=== PATIENT | male | born 1965 | race Hispanic/Latino ===

== ENCOUNTER 2022-10-25 13:19 | Inpatient (IN) | payer OTHER ==
--- OUTSIDE RECORDS SUMMARY | 2022-10-25 13:36 | XMS REPORT | Continuity of Care Document ---
:1965 Author Organization [facility] t Address [address] [place] [address] Care Team Providers Name Role Phone LYNDSEY NOVAK Attending Clinician Unavailable LIANA STEPHENS Attending Clinician Unavailable EVELIO NELSON Attending Clinician Unavailable DEANA ONTIVEROS Attending Clinician Unavailable LAB90 Attending Clinician Unavailable Mj Vences Attending Clinician Unavailable Wilbert Ramires Attending Clinician Unavailable Mj Vences Admitting Clinician Unavailable Wilbert Ramires Admitting Clinician Unavailable Payers Payer Name Policy Type Policy Number Effective Date Expiration Date S reina GOTTI MP CVS 9 [id number] 2022 BRONZE: HMO ON 00:00:00 STANDARD Problems This patient has no known problems. Allergies, Adverse Reactions, Alerts Allergy Allergy Status Severity Reaction(s) Onset Inactive Treating Comm ents Source Name Type Date Date Clinician No Known DA Active U 2010-05 [facility] Allergie 0-30 Clear s 00:00: Nevarez 00 [facility] Social History Social Habit Start Date Stop Date Quantity Comments Source Gender identity Nikia dupree - External Sexual orientation Nikia Liang - External History of tobacco Cigarette Smoker Nikia Liang use - External Alcohol intake 2022-10-24 2022-10-24 Ex-drinker Nikia escobar 00:00:00 00:00:00 (finding) - External Tobacco use and 2022-10-16 2022-10-16 Smokeless tobacco Ke lsey Seybold exposure 00:00:00 00:00:00 non-user - External History of Social 2022-10-16 2022-10-16 Nikia Liang function 00:00:00 00:00:00 - External Sex Ass[birth year] At [birth year] Nikia dupree 00:00:00 00:00:00 - External Smoking Status Start Date Stop Date Source Ex-smoker 2022-10-16 00:00:00 2022-10-16 00:00:00 Nikianorma quirosbarbaraleora - External Medications Ordered Filled Start Stop Current Ordering Indication Dosage Frequency Signature Comments Components Source Medication Medication Date Date Medication? Clinician (SIG) Name Name Amoxicillin Yes [id number] 1{tbl} Take 1 Nikia -Pot 5-30 tablet by Seybold Clavulanate 00:00: mouth 2 - 500-125 MG 00 times Externa oral Tablet daily l Amitriptyli Yes [id number] 25mg Take 1 Nikia ne HCl 25 5-26 tablet (25 Seyb old MG oral 00:00: mg total) - Tablet 00 by mouth Externa at bedtime l Sodium Yes [id number] 650mg Take 1 Ashish sey Bicarbonate 5-26 tablet Seybol d 650 MG oral 00:00: (650 mg - Tablet 00 total) by Externa mouth 2 l times daily Gabapentin Yes [id number] 100mg Take 1 Nikia 100 MG oral 5-26 capsule Seybo ld Capsule 00:00: (100 mg - 00 total) by Externa mouth l every 8 hours Clonidine Yes [id number] .1mg Take 1 Trell lsey HCl 5-26 tablet Seybold (CATAPRES) 00:00: (0.1 mg - 0.1 MG oral 00 total) by Ext jordyn Tablet mouth 2 l times daily hydrALAZINE Yes [id number] 100mg Take 1 Nikia HCl 100 MG 5-26 tablet Seybold oral Tablet 00:00: (100 mg - 00 total) by Externa mouth 3 l times daily Furosemide Yes [id number] 20mg Take 1 K elsey (LASIX) 20 5-26 tablet (20 Sey bold MG oral 00:00: mg total) - Tablet 00 by mouth Externa daily l Amitriptyli 2022-0 Yes [id number] 25mg Take 1 Nikia ne HCl 25 5-26 tablet (25 Seyb old MG oral 00:00: mg total) - Tablet 00 by mouth Externa at bedtime l Sodium 2022-0 Yes [id number] 650mg Take 1 Ashish sey Bicarbonate 5-26 tablet Seybol d 650 MG oral 00:00: (650 mg - Tablet 00 total) by Externa mouth 2 l times daily Gabapentin 2022-0 Yes [id number] 100mg Take 1 Nikia 100 MG oral 5-26 capsule Seybo ld Capsule 00:00: (100 mg - 00 total) by Externa mouth l every 8 hours Clonidine 2022-0 Yes [id number] .1mg Take 1 Ke lsey HCl 5-26 tablet Seybold (CATAPRES) 00:00: (0.1 mg - 0.1 MG oral 00 total) by Ext jordyn Tablet mouth 2 l times daily hydrALAZINE 2022-0 Yes [id number] 100mg Take 1 Nikia HCl 100 MG 5-26 tablet Seybold oral Tablet 00:00: (100 mg - 00 total) by Externa mouth 3 l times daily Furosemide 2022-0 Yes [id number] 20mg Take 1 K elsey (LASIX) 20 5-26 tablet (20 Sey bold MG oral 00:00: mg total) - Tablet 00 by mouth Externa daily l Labetalol 2022-0 Yes Nikia HCl 200 MG 5-24 Seybold oral Tablet 00:00: - 00 Externa l Labetalol 2022-0 Yes Nikia HCl 200 MG 5-24 Seybold oral Tablet 00:00: - 00 Externa l Gabapentin 2022-0 2023- No 100mg Take 1 Ashish sey 100 MG oral 5-17 05-26 capsule Seyb old Capsule 00:00: 00:00 (100 mg - 00 :00 total) by Externa mouth l every 8 hours hydrALAZINE 2022-0 2022- No 100mg Take 1 Ke lsey HCl 100 MG 5-06 05-26 tablet Seybol d oral Tablet 00:00: 00:00 (100 mg - 00 :00 total) by Externa mouth l daily Insulin 2022-0 Yes INJECT 10 Kelse y Lispro, 1 5-04 UNITS Seybold Unit Dial, 00:00: SUBCUTANEO - 100 UNIT/ML 00 USLY WITH Ext jordyn subcutaneou EACH MEAL l s Solution Pen-injecto DIRECTED r Insulin Yes INJECT 10 Kelse y Lispro, 1 5-04 UNITS Seybold Unit Dial, 00:00: SUBCUTANEO - 100 UNIT/ML 00 USLY WITH Ext jordyn subcutaneou EACH MEAL l s Solution Pen-injecto DIRECTED r predniSONE Yes 10mg Take 1 Kelse y (DELTASONE) 5-03 tablet (10 Se ybold 10 MG oral 00:00: mg total) - tablet 00 by mouth Externa See Admin l Instructio ns PLEASE SEE ATTACHED FOR DETAILED DIRECTIONS predniSONE Yes 10mg Take 1 Kelse y (DELTASONE) 5-03 tablet (10 Se ybold 10 MG oral 00:00: mg total) - tablet 00 by mouth Externa See Admin l Instructio ns PLEASE SEE ATTACHED FOR DETAILED DIRECTIONS Clonidine 0 2022- No .1mg Take 1 Kelse y HCl 09-24-26 tablet Seybold (CATAPRES) 00:00: 00:00 (0.1 mg - 0.1 MG oral 00 :00 total) by Ext jordyn Tablet mouth 2 l times daily Furosemide 2022- No 20mg Take 1 Genesis ey (LASIX) 20 - 05-26 tablet (20 Se ybold MG oral 00:00: 00:00 mg total) - Tablet 00 :00 by mouth Externa daily l Amitriptyli 0 2022- No 25mg Take 1 Ashish sey ne HCl 25 09-23 05-26 tablet (25 Sey bold MG oral 00:00: 00:00 mg total) - Tablet 00 :00 by mouth Externa at bedtime l Sodium 2022- No 650mg Take 1 Nikia Bicarbonate - 05-26 tablet Seybo ld 650 MG oral 00:00: 00:00 (650 mg - Tablet 00 :00 total) by Externa mouth 2 l times daily oxyCODONE-A Yes TAKE 1 Genesis ey cetaminophe 4-27 TABLET BY Sey bold n 10-325 MG 00:00: MOUTH - oral Tablet 00 EVERY SIX Ext jordyn HOURS l NEEDED FOR PAIN (MAX 4/DAY) oxyCODONE-A Yes TAKE 1 Genesis quiros cetaminophe 4-27 TABLET BY Norma escobar n 10-325 MG 00:00: MOUTH - oral Tablet 00 EVERY SIX Ext jordyn HOURS l NEEDED FOR PAIN (MAX 4/DAY) Vital Signs Vital Name Observation Time Observation Value Comments Source Systolic blood 2022-10-24 163 mm[Hg] Nikia Changol d pressure 21:33:00 - External Diastolic blood 2022-10-24 76 mm[Hg] Nikia Woodybo ld pressure 21:33:00 - External Heart rate 2022-10-24 86 /min Nikia Woodybold :33:00 - External Body temperature 2022-10-24 36.89 Josey Nikia Chang old :33:00 - External Respiratory rate 2022-10-24 19 /min Nikia Chang old :33:00 - External Body height 2022-10-24 167.6 cm Nikia Woodybmiguel :33:00 - External Body weight 2022-10-24 72.576 kg Nikia Woodybmiguel 21:33:00 - External BMI 2022-10-24 25.82 [facility] - External Oxygen saturation 2022-10-24 99 /min Nikia escobar in Arterial blood 21:33:00 - External by Pulse oximetry Systolic blood 2022-10-17 135 mm[Hg] Nikianorma Changol d pressure 13:01:00 - External Diastolic blood 2022-10-17 89 mm[Hg] Nikia Chango ld pressure 13:01:00 - External Heart rate 2022-10-17 87 /min Nikia Woodybmiguel 13:01:00 - External Body temperature 2022-10-17 36.61 Josey Nikia Chang old 13:01:00 - External Respiratory rate 2022-10-17 16 /min Nikia Wood old 13:01:00 - External Body height 2022-10-17 167.6 cm pt is in a Nikia Woodybmiguel 13:01:00 wheel chair - External Body weight 2022-10-17 72.576 kg Nikia Woodybmiguel 13:01:00 - External BMI 2022-10-17 25.82 kg/m2 Nikia Liang 13:01:00 - External Oxygen saturation 2022-10-17 97 /min Nikia escobar in Arterial blood 13:01:00 - External by Pulse oximetry Procedures Procedure Date / Time Performed Performing Clinician [facility] e REFERRAL TO GENERAL 2022-10-17 14:40:00 Deana Ontiveros anayajyotsna Liang - SURGERY[facility] External [id number] 2022-09-08 00:00:00 KARZE [facility] [id number] 2022-09-08 00:00:00 KARZE [facility] [id number] 2022-09-03 00:00:00 GIBJE.01 [facility] [id number] 2022-09-03 00:00:00 GIBJE.01 [facility] [id number] 2022-09-03 00:00:00 GIBJE.01 [facility] [id number] 2022-09-03 00:00:00 GIBJE.01 [facility] [id number] 2022-09-03 00:00:00 GIBJE.01 [facility] [id number] 2022-08-28 00:00:00 JUAJE [facility] [id number] 2022-08-26 00:00:00 HACJE [facility] [id number] 2022-08-25 00:00:00 ALBPA [facility] [id number] 2022-08-19 00:00:00 REYSE [facility] Encounters Start End Encounter Admission Attending Care Care Encounter Source Date/Time Date/Time Type Type Clinicians Facility Department ID 2023-02-23 2023-02-23 Outpatient LYNDSEY NOVAK [id number] Nikia 10:15:00 10:15:00 Seybol d 2023-01-23 2023-01-23 Outpatient NIKIA STEPHENS [id number] Nikia 09:20:00 09:20:00 LIANA corey 2022-11-20 2022-11-20 Outpatient EVELIO NELSONSEY [id number] Nikia 14:10:00 14:10:00 Seybol d 2022-10-24 2022-10-24 Outpatient NIKIA ONTIVEROS [id number] Nikia 16:30:00 16:30:00 DEANA Seybol d 2022-10-21 2022-10-21 Outpatient NIKIA ONTIVEROS [id number] Nikia 00:00:00 00:00:00 DEANA Seybol d 2022-10-21 2022-10-21 Outpatient NIKIA ONTIVEROS [id number] Nikia 00:00:00 00:00:00 DEANA Seybol d 2022-10-17 2022-10-17 Outpatient LAB90 NIKIA HARRINGTON [id number] Nikia 09:20:00 09:20:00 Seybol d 2022-10-17 2022-10-17 Outpatient NIKIA ONTIVEROS [id number] Nikia 08:00:00 08:00:00 DEANA Seybol d 2022-10-17 2022-10-17 Outpatient NIKIA ONTIVEROS [id number] Nikia 00:00:00 00:00:00 DEANA Seybol d 2022-09-02 2022-09-24 Inpatient FAY Vences [facility] [id number] [facility] 17:20:00 18:29:[address] 2022-08-18 2022-09-02 Inpatient DEVIN Ramires [facility].02 [id number] [facility] 05:13:00 16:55:00 [facility] Results Test Description Test Time Test Comments Results Result Comments Source GLUCOSE BEDSIDE 2022-09-24 16:44:00 Test Item Value Reference Range Interpretation Comme nts GLUCOSE BEDSIDE (test code = 167 MG/DL 70-110 H Performed by certified dredge operator at [facility]) [facility] GLUCOSE [id number] 11:20:00 Test Item Value Reference Range Interpretation Comments GLUCOSE BEDSIDE (test 100 MG/DL 70-110 N Perfor med by certified code = GLUBED) dredge operator at [facility] CBC W/AUTO [id number] 07:55:00 Test Item Value Reference Range Interpretation Comments WHITE BLOOD CELL (test code = 13.1 x10 3/uL 4.5-11.0 H WBC) RED BLOOD CELL (test code = 2.67 x10 6/uL 4.00-5.60 L RBC) HEMOGLOBIN (test code = HGB) 7.6 g/dL 12.5-16.9 L HEMATOCRIT (test code = HCT) 25.0 % 37.5-50.7 L MEAN CELL VOLUME (test code = 93.6 fL 81.0-99.0 N MCV) MEAN CELL HGB (test code = MCH) 28.5 pg 27.0-33.0 N MEAN CELL HGB CONCETRATION 30.4 g/dL 33.0-37.0 L (test code = MCHC) RED CELL DISTRIBUTION WIDTH CV 16.4 % 11.5-14.5 H (test code = RDW) RED CELL DISTRIBUTION WIDTH SD 55.4 fL 37.0-54.0 H (test code = RDW-SD) PLATELET COUNT (test code = 285 x10 3/uL 150-400 N PLT) MEAN PLATELET VOLUME (test code 9.6 fL 7.0-9.0 H = MPV) NEUTROPHIL % (test code = NT%) 73.5 % 56.0-77.0 N IMMATURE GRANULOCYTE % (test 1.1 % 0.0-2.0 N code = IG%) LYMPHOCYTE % (test code = LY%) 14.8 % 14.0-32.0 N MONOCYTE % (test code = MO%) 7.6 % 4.8-9.0 N EOSINOPHIL % (test code = EO%) 3.0 % 0.3-3.7 N BASOPHIL % (test code = BA%) 0.0 % 0.0-2.0 N NUCLEATED RBC % (test code = 0.0 % 0-0 N NRBC%) NEUTROPHIL # (test code = NT#) 9.62 x10 3/uL 2.0-7.6 H IMMATURE GRANULOCYTE # (test 0.14 x10 3/uL 0.00-0.03 H code = IG#) LYMPHOCYTE # (test code = LY#) 1.93 x10 3/uL 1.0-3.8 N MONOCYTE # (test code = MO#) 0.99 x10 3/uL 0.1-0.8 H EOSINOPHIL # (test code = EO#) 0.39 x10 3/uL 0.0-0.2 H BASOPHIL # (test code = BA#) 0.00 x10 3/uL 0.0-0.2 N NUCLEATED RBC # (test code = 0.00 x10 3/uL 0.0-0.1 N NRBC#) MANUAL DIFF REQUIRED (test code NO = MDIFF) BASIC METABOLIC [id number] 07:33:00 Test Item Value Reference Range Interpretation Comments SODIUM (test code = 144 mEq/L 134-147 N NA) POTASSIUM (test code 5.0 mEq/L 3.4-5.0 N = K) CHLORIDE (test code 115 mEq/L 100-108 H = CL) CARBON DIOXIDE (test 19 mEq/l 21-33 L code = CO2) ANION GAP (test code 15 0-20 N = GAP) GLUCOSE (test code = 183 mg/dL 70-110 H GLU) BLOOD UREA NITROGEN 60 mg/dL 7-18 H (test code = BUN) GLOMERULAR 46.2 90-95 L The Glomerular FILTRATION RATE Filtration R ate is a (test code = GFR) calculated parameterbased on serum Creatinine, pat ient age and sex. GFR va luesless than 60 mL/min/ 1.73 square meters a re indicative ofCh ronic Kidney Disease. Values less than 15 mL/min/1.73squa re meters indicate Kidney failure. The calculation forGFR is based on the CKD-EPI (2020) calculat ion. This formulais race indifferent and is the recommended for rodrigo for GFRby the [facility] Kidney Foundati on for Adults.The GFR will not calculate if th e sex is unknown or if thepatient's ag e is <18 years. CREATININE (test 1.7 mg/dL 0.6-1.3 H code = CREAT) CALCIUM (test code = 7.8 mg/dL 8.0-10.5 L CA) [id number] 07:33:00 Test Item Value Reference Range Interpretation Comments PHOSPHOROUS (test code = PHOS) 5.4 MG/DL 2.5-4.9 H [id number] 07:33:00 Test Item Value Reference Range Interpretation Comments MAGNESIUM (test code = MAG) 2.18 mg/dL 1.80-2.40 N GLUCOSE [id number] 06:08:00 Test Item Value Reference Range Interpretation Comments GLUCOSE BEDSIDE (test 176 MG/DL 70-110 H Perfor med by certified code = GLUBED) dredge operator at [facility] GLUCOSE [id number] 19:52:00 Test Item Value Reference Range Interpretation Comments GLUCOSE BEDSIDE (test 194 MG/DL 70-110 H Perfor med by certified code = GLUBED) dredge operator at [facility] GLUCOSE [id number] 15:58:00 Test Item Value Reference Range Interpretation Comments GLUCOSE BEDSIDE (test 146 MG/DL 70-110 H Perfor med by certified code = GLUBED) dredge operator at [facility] GLUCOSE [id number] 11:33:00 Test Item Value Reference Range Interpretation Comments GLUCOSE BEDSIDE (test 231 MG/DL 70-110 H Perfor med by certified code = GLUBED) dredge operator at [facility] BASIC METABOLIC [id number] 08:11:00 Test Item Value Reference Range Interpretation Comments SODIUM (test code = 138 mEq/L 134-147 N NA) POTASSIUM (test code 5.6 mEq/L 3.4-5.0 H = K) CHLORIDE (test code 112 mEq/L 100-108 H = CL) CARBON DIOXIDE (test 19 mEq/l 21-33 L code = CO2) ANION GAP (test code 13 0-20 N = GAP) GLUCOSE (test code = 217 mg/dL 70-110 H GLU) BLOOD UREA NITROGEN 70 mg/dL 7-18 H (test code = BUN) GLOMERULAR 35.8 90-95 L The Glomerular FILTRATION RATE Filtration R ate is a (test code = GFR) calculated parameterbased on serum Creatinine, pat ient age and sex. GFR va luesless than 60 mL/min/ 1.73 square meters a re indicative ofCh ronic Kidney Disease. Values less than 15 mL/min/1.73squa re meters indicate Kidney failure. The calculatio n forGFR is based on the CKD-EPI (2020) calculat ion. This formulais race indifferent and is the recommended for rodrigo for GFRby the [facility] on for Adults.The GFR will not calculate if th e sex is unknown or if thepatient's ag e is <18 years. CREATININE (test 2.1 mg/dL 0.6-1.3 H code = CREAT) CALCIUM (test code = 7.8 mg/dL 8.0-10.5 L CA) [id number] 08:11:00 Test Item Value Reference Range Interpretation Comments PHOSPHOROUS (test code = PHOS) 5.2 MG/DL 2.5-4.9 H [id number] 08:11:00 Test Item Value Reference Range Interpretation Comments MAGNESIUM (test code = MAG) 2.22 mg/dL 1.80-2.40 N CBC W/AUTO [id number] 07:10:00 Test Item Value Reference Range Interpretation Comments WHITE BLOOD CELL (test code = 11.8 x10 3/uL 4.5-11.0 H WBC) RED BLOOD CELL (test code = 2.74 x10 6/uL 4.00-5.60 L RBC) HEMOGLOBIN (test code = HGB) 7.8 g/dL 12.5-16.9 L HEMATOCRIT (test code = HCT) 25.4 % 37.5-50.7 L MEAN CELL VOLUME (test code = 92.7 fL 81.0-99.0 N MCV) MEAN CELL HGB (test code = 28.5 pg 27.0-33.0 N MCH) MEAN CELL HGB CONCETRATION 30.7 g/dL 33.0-37.0 L (test code = MCHC) RED CELL DISTRIBUTION WIDTH CV 16.1 % 11.5-14.5 H (test code = RDW) RED CELL DISTRIBUTION WIDTH SD 54.4 fL 37.0-54.0 H (test code = RDW-SD) PLATELET COUNT (test code = 300 x10 3/uL 150-400 N PLT) MEAN PLATELET VOLUME (test 9.4 fL 7.0-9.0 H code = MPV) NEUTROPHIL % (test code = NT%) 84.8 % 56.0-77.0 H IMMATURE GRANULOCYTE % (test 0.9 % 0.0-2.0 N code = IG%) LYMPHOCYTE % (test code = LY%) 9.6 % 14.0-32.0 L MONOCYTE % (test code = MO%) 4.5 % 4.8-9.0 L EOSINOPHIL % (test code = EO%) 0.1 % 0.3-3.7 L BASOPHIL % (test code = BA%) 0.1 % 0.0-2.0 N NUCLEATED RBC % (test code = 0.0 % 0-0 N NRBC%) NEUTROPHIL # (test code = NT#) 10.02 x10 3/uL 2.0-7.6 H IMMATURE GRANULOCYTE # (test 0.11 x10 3/uL 0.00-0.03 H code = IG#) LYMPHOCYTE # (test code = LY#) 1.13 x10 3/uL 1.0-3.8 N MONOCYTE # (test code = MO#) 0.53 x10 3/uL 0.1-0.8 N EOSINOPHIL # (test code = EO#) 0.01 x10 3/uL 0.0-0.2 N BASOPHIL # (test code = BA#) 0.01 x10 3/uL 0.0-0.2 N NUCLEATED RBC # (test code = 0.00 x10 3/uL 0.0-0.1 N NRBC#) MANUAL DIFF REQUIRED (test NO code = MDIFF) GLUCOSE [id number] 06:01:00 Test Item Value Reference Range Interpretation Comments GLUCOSE BEDSIDE (test 226 MG/DL 70-110 H Perfor med by certified code = GLUBED) dredge operator at [facility] GLUCOSE [id number] 03:42:00 Test Item Value Reference Range Interpretation Comments GLUCOSE BEDSIDE (test 190 MG/DL 70-110 H Perfor med by certified code = GLUBED) dredge operator at [facility] GLUCOSE [id number] 18:59:00 Test Item Value Reference Range Interpretation Comments GLUCOSE BEDSIDE (test 156 MG/DL 70-110 H Perfor med by certified code = GLUBED) dredge operator at [facility] GLUCOSE [id number] 16:16:00 Test Item Value Reference Range Interpretation Comments GLUCOSE BEDSIDE (test 118 MG/DL 70-110 H Perfor med by certified code = GLUBED) dredge operator at [facility] GLUCOSE [id number] 11:22:00 Test Item Value Reference Range Interpretation Comments GLUCOSE BEDSIDE (test 170 MG/DL 70-110 H Perfor med by certified code = GLUBED) dredge operator at [facility] B-TYPE NATRIURETIC [id number] 07:36:00 Test Item Value Reference Range Interpretation Comments B-TYPE NATRIURETIC PEPTIDE (test 251.0 PG/ML 0-100 H code = BNP) CBC W/AUTO [id number] 07:01:00 Test Item Value Reference Range Interpretation Comments WHITE BLOOD CELL (test code = 12.0 x10 3/uL 4.5-11.0 H WBC) RED BLOOD CELL (test code = 2.65 x10 6/uL 4.00-5.60 L RBC) HEMOGLOBIN (test code = HGB) 7.7 g/dL 12.5-16.9 L HEMATOCRIT (test code = HCT) 24.2 % 37.5-50.7 L MEAN CELL VOLUME (test code = 91.3 fL 81.0-99.0 N MCV) MEAN CELL HGB (test code = MCH) 29.1 pg 27.0-33.0 N MEAN CELL HGB CONCETRATION 31.8 g/dL 33.0-37.0 L (test code = MCHC) RED CELL DISTRIBUTION WIDTH CV 16.0 % 11.5-14.5 H (test code = RDW) RED CELL DISTRIBUTION WIDTH SD 52.8 fL 37.0-54.0 N (test code = RDW-SD) PLATELET COUNT (test code = 305 x10 3/uL 150-400 N PLT) MEAN PLATELET VOLUME (test code 9.5 fL 7.0-9.0 H = MPV) NEUTROPHIL % (test code = NT%) 81.7 % 56.0-77.0 H IMMATURE GRANULOCYTE % (test 1.1 % 0.0-2.0 N code = IG%) LYMPHOCYTE % (test code = LY%) 11.3 % 14.0-32.0 L MONOCYTE % (test code = MO%) 5.7 % 4.8-9.0 N EOSINOPHIL % (test code = EO%) 0.2 % 0.3-3.7 L BASOPHIL % (test code = BA%) 0.0 % 0.0-2.0 N NUCLEATED RBC % (test code = 0.0 % 0-0 N NRBC%) NEUTROPHIL # (test code = NT#) 9.79 x10 3/uL 2.0-7.6 H IMMATURE GRANULOCYTE # (test 0.13 x10 3/uL 0.00-0.03 H code = IG#) LYMPHOCYTE # (test code = LY#) 1.35 x10 3/uL 1.0-3.8 N MONOCYTE # (test code = MO#) 0.68 x10 3/uL 0.1-0.8 N EOSINOPHIL # (test code = EO#) 0.02 x10 3/uL 0.0-0.2 N BASOPHIL # (test code = BA#) 0.00 x10 3/uL 0.0-0.2 N NUCLEATED RBC # (test code = 0.00 x10 3/uL 0.0-0.1 N NRBC#) MANUAL DIFF REQUIRED (test code NO = MDIFF) GLUCOSE [id number] 06:33:00 Test Item Value Reference Range Interpretation Comments GLUCOSE BEDSIDE (test 251 MG/DL 70-110 H Perfor med by certified code = GLUBED) dredge operator at [facility] BASIC METABOLIC [id number] 05:27:00 Test Item Value Reference Range Interpretation Comments SODIUM (test code = 138 mEq/L 134-147 N NA) POTASSIUM (test code 5.1 mEq/L 3.4-5.0 H = K) CHLORIDE (test code 111 mEq/L 100-108 H = CL) CARBON DIOXIDE (test 20 mEq/l 21-33 L code = CO2) ANION GAP (test code 12 0-20 N = GAP) GLUCOSE (test code = 244 mg/dL 70-110 H GLU) BLOOD UREA NITROGEN 71 mg/dL 7-18 H (test code = BUN) GLOMERULAR 43.1 90-95 L The Glomerular FILTRATION RATE Filtration R ate is a (test code = GFR) calculated parameterbased on serum Creatinine, pat ient age and sex. GFR va luesless than 60 mL/min/ 1.73 square meters a re indicative ofCh ronic Kidney Disease. Values less than 15 mL/min/1.73squa re meters indicate Kidney failure. The calculation forGFR is based on the CKD-EPI (2020) calculat ion. This formulais race indifferent and is the recommended for rodrigo for GFRby the [facility] on for Adults.The GFR will not calculate if th e sex is unknown or if thepatient's ag e is <18 years. CREATININE (test 1.8 mg/dL 0.6-1.3 H code = CREAT) CALCIUM (test code = 7.3 mg/dL 8.0-10.5 L CA) [id number] 05:27:00 Test Item Value Reference Range Interpretation Comments ALBUMIN (test code = ALB) 1.80 g/dL 3.4-5.0 L [id number] 05:27:00 Test Item Value Reference Range Interpretation Comments PHOSPHOROUS (test code = PHOS) 5.0 MG/DL 2.5-4.9 H CREATINE KINASE (CK)2022-09-22 05:27:00 Test Item Value Reference Range Interpretation Comments CREATINE KINASE (CK) (test code = 27 Units/L 46-171 L CK) [id number] 05:27:00 Test Item Value Reference Range Interpretation Comments MAGNESIUM (test code = MAG) 2.13 mg/dL 1.80-2.40 N [id number] 05:27:00 Test Item Value Reference Range Interpretation Comments PREALBUMIN (test code = PREALB) 16.7 mg/dL 16.0-40.0 N GLUCOSE [id number] 21:01:00 Test Item Value Reference Range Interpretation Comments GLUCOSE BEDSIDE (test 251 MG/DL 70-110 H Perfor med by certified code = GLUBED) 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 operator at [facility] GLUCOSE [id number] 16:07:00 Test Item Value Reference Range Interpretation Comments GLUCOSE BEDSIDE (test 170 MG/DL 70-110 H Perfor med by certified code = GLUBED) dredge operator at [facility] GLUCOSE [id number] 14:50:00 Test Item Value Reference Range Interpretation Comments GLUCOSE BEDSIDE (test 167 MG/DL 70-110 H Perfor med by certified code = GLUBED) dredge operator at [facility] GLUCOSE [id number] 12:12:00 Test Item Value Reference Range Interpretation Comments GLUCOSE BEDSIDE (test 162 MG/DL 70-110 H Perfor med by certified code = GLUBED) dredge operator at [facility] BASIC METABOLIC [id number] 08:19:00 Test Item Value Reference Range Interpretation Comments SODIUM (test code = 137 mEq/L 134-147 N NA) POTASSIUM (test code 4.6 mEq/L 3.4-5.0 N = K) CHLORIDE (test code 107 mEq/L 100-108 N = CL) CARBON DIOXIDE (test 22 mEq/l 21-33 N code = CO2) ANION GAP (test code 13 0-20 N = GAP) GLUCOSE (test code = 148 mg/dL 70-110 H GLU) BLOOD UREA NITROGEN 75 mg/dL 7-18 H (test code = BUN) GLOMERULAR 40.4 90-95 L The Glomerular FILTRATION RATE Filtration R ate is a (test code = GFR) calculated parameterbased on serum Creatinine, pat ient age and sex. GFR va luesless than 60 mL/min/ 1.73 square meters a re indicative ofCh ronic Kidney Disease. Values less than 15 mL/min/1.73squa re meters indicate Kidney failure. The calculation forGFR is based on the CKD-EPI (2020) calculat ion. This formulais race indifferent and is the recommended for rodrigo for GFRby the Nat n[facility] Kidney Foundati on for Adults.The GFR will not calculate if th e sex is unknown or if thepatient's ag e is <18 years. CREATININE (test 1.9 mg/dL 0.6-1.3 H code = CREAT) CALCIUM (test code = 7.5 mg/dL 8.0-10.5 L CA) [id number] 08:19:00 Test Item Value Reference Range Interpretation Comments PHOSPHOROUS (test code = PHOS) 5.0 MG/DL 2.5-4.9 H [id number] 08:19:00 Test Item Value Reference Range Interpretation Comments MAGNESIUM (test code = MAG) 2.06 mg/dL 1.80-2.40 N CBC W/AUTO [id number] 07:24:00 Test Item Value Reference Range Interpretation Comments WHITE BLOOD CELL (test code = 13.0 x10 3/uL 4.5-11.0 H WBC) RED BLOOD CELL (test code = 2.69 x10 6/uL 4.00-5.60 L RBC) HEMOGLOBIN (test code = HGB) 7.6 g/dL 12.5-16.9 L HEMATOCRIT (test code = HCT) 23.9 % 37.5-50.7 L MEAN CELL VOLUME (test code = 88.8 fL 81.0-99.0 N MCV) MEAN CELL HGB (test code = 28.3 pg 27.0-33.0 N MCH) MEAN CELL HGB CONCETRATION 31.8 g/dL 33.0-37.0 L (test code = MCHC) RED CELL DISTRIBUTION WIDTH CV 15.7 % 11.5-14.5 H (test code = RDW) RED CELL DISTRIBUTION WIDTH SD 49.5 fL 37.0-54.0 N (test code = RDW-SD) PLATELET COUNT (test code = 296 x10 3/uL 150-400 N PLT) MEAN PLATELET VOLUME (test 9.8 fL 7.0-9.0 H code = MPV) NEUTROPHIL % (test code = NT%) 82.2 % 56.0-77.0 H IMMATURE GRANULOCYTE % (test 0.9 % 0.0-2.0 N code = IG%) LYMPHOCYTE % (test code = LY%) 11.3 % 14.0-32.0 L MONOCYTE % (test code = MO%) 5.3 % 4.8-9.0 N EOSINOPHIL % (test code = EO%) 0.2 % 0.3-3.7 L BASOPHIL % (test code = BA%) 0.1 % 0.0-2.0 N NUCLEATED RBC % (test code = 0.0 % 0-0 N NRBC%) NEUTROPHIL # (test code = NT#) 10.70 x10 3/uL 2.0-7.6 H IMMATURE GRANULOCYTE # (test 0.12 x10 3/uL 0.00-0.03 H code = IG#) LYMPHOCYTE # (test code = LY#) 1.47 x10 3/uL 1.0-3.8 N MONOCYTE # (test code = MO#) 0.69 x10 3/uL 0.1-0.8 N EOSINOPHIL # (test code = EO#) 0.03 x10 3/uL 0.0-0.2 N BASOPHIL # (test code = BA#) 0.01 x10 3/uL 0.0-0.2 N NUCLEATED RBC # (test code = 0.00 x10 3/uL 0.0-0.1 N NRBC#) MANUAL DIFF REQUIRED (test NO code = MDIFF) GLUCOSE [id number] 05:59:00 Test Item Value Reference Range Interpretation Comments GLUCOSE BEDSIDE (test 155 MG/DL 70-110 H Perfor med by certified code = GLUBED) dredge operator at [facility] GLUCOSE [id number] 20:10:00 Test Item Value Reference Range Interpretation Comments GLUCOSE BEDSIDE (test 239 MG/DL 70-110 H Perfor med by certified code = GLUBED) dredge operator at [facility] GLUCOSE [id number] 16:14:00 Test Item Value Reference Range Interpretation Comments GLUCOSE BEDSIDE (test 159 MG/DL 70-110 H Perfor med by certified code = GLUBED) dredge operator at [facility] GLUCOSE [id number] 11:52:00 Test Item Value Reference Range Interpretation Comments GLUCOSE BEDSIDE (test 155 MG/DL 70-110 H Perfor med by certified code = GLUBED) dredge operator at [facility] GLUCOSE [id number] 09:34:00 Test Item Value Reference Range Interpretation Comments GLUCOSE BEDSIDE (test 299 MG/DL 70-110 H Perfor med by certified code = GLUBED) dredge operator at [facility] BASIC METABOLIC [id number] 08:04:00 Test Item Value Reference Range Interpretation Comments SODIUM (test code = 136 mEq/L 134-147 N NA) POTASSIUM (test code 4.2 mEq/L 3.4-5.0 N = K) CHLORIDE (test code 107 mEq/L 100-108 N = CL) CARBON DIOXIDE (test 21 mEq/l 21-33 N code = CO2) ANION GAP (test code 12 0-20 N = GAP) GLUCOSE (test code = 301 mg/dL 70-110 H GLU) BLOOD UREA NITROGEN 76 mg/dL 7-18 H (test code = BUN) GLOMERULAR 33.9 90-95 L The Glomerular FILTRATION RATE Filtration R ate is a (test code = GFR) calculated parameterbased on serum Creatinine, pat ient age and sex. GFR va luesless than 60 mL/min/ 1.73 square meters a re indicative ofCh ronic Kidney Disease. Values less than 15 mL/min/1.73squa re meters indicate Kidney failure. The calculation forGFR is based on the CKD-EPI (2020) calculat ion. This formulais race indifferent and is the recommended for rodrigo for GFRby the [facility] on for Adults.The GFR will not calculate if th e sex is unknown or if thepatient's ag e is <18 years. CREATININE (test 2.2 mg/dL 0.6-1.3 H code = CREAT) CALCIUM (test code = 7.4 mg/dL 8.0-10.5 L CA) [id number] 08:04:00 Test Item Value Reference Range Interpretation Comments PHOSPHOROUS (test code = PHOS) 5.4 MG/DL 2.5-4.9 H [id number] 08:04:00 Test Item Value Reference Range Interpretation Comments MAGNESIUM (test code = MAG) 2.05 mg/dL 1.80-2.40 CBC W/AUTO [id number] 07:53:00 Test Item Value Reference Range Interpretation Comments WHITE BLOOD CELL (test code = 12.3 x10 3/uL 4.5-11.0 H WBC) RED BLOOD CELL (test code = 2.66 x10 6/uL 4.00-5.60 L RBC) HEMOGLOBIN (test code = HGB) 7.6 g/dL 12.5-16.9 L HEMATOCRIT (test code = HCT) 23.9 % 37.5-50.7 L MEAN CELL VOLUME (test code = 89.8 fL 81.0-99.0 N MCV) MEAN CELL HGB (test code = MCH) 28.6 pg 27.0-33.0 N MEAN CELL HGB CONCETRATION 31.8 g/dL 33.0-37.0 L (test code = MCHC) RED CELL DISTRIBUTION WIDTH CV 15.3 % 11.5-14.5 H (test code = RDW) RED CELL DISTRIBUTION WIDTH SD 49.0 fL 37.0-54.0 N (test code = RDW-SD) PLATELET COUNT (test code = 302 x10 3/uL 150-400 N PLT) MEAN PLATELET VOLUME (test code 9.2 fL 7.0-9.0 H = MPV) NEUTROPHIL % (test code = NT%) 79.7 % 56.0-77.0 H IMMATURE GRANULOCYTE % (test 0.8 % 0.0-2.0 N code = IG%) LYMPHOCYTE % (test code = LY%) 13.0 % 14.0-32.0 L MONOCYTE % (test code = MO%) 6.2 % 4.8-9.0 N EOSINOPHIL % (test code = EO%) 0.2 % 0.3-3.7 L BASOPHIL % (test code = BA%) 0.1 % 0.0-2.0 N NUCLEATED RBC % (test code = 0.0 % 0-0 N NRBC%) NEUTROPHIL # (test code = NT#) 9.84 x10 3/uL 2.0-7.6 H IMMATURE GRANULOCYTE # (test 0.10 x10 3/uL 0.00-0.03 H code = IG#) LYMPHOCYTE # (test code = LY#) 1.60 x10 3/uL 1.0-3.8 N MONOCYTE # (test code = MO#) 0.76 x10 3/uL 0.1-0.8 N EOSINOPHIL # (test code = EO#) 0.03 x10 3/uL 0.0-0.2 N BASOPHIL # (test code = BA#) 0.01 x10 3/uL 0.0-0.2 N NUCLEATED RBC # (test code = 0.00 x10 3/uL 0.0-0.1 N NRBC#) MANUAL DIFF REQUIRED (test code NO = MDIFF) GLUCOSE [id number] 05:15:00 Test Item Value Reference Range Interpretation Comments GLUCOSE BEDSIDE (test 277 MG/DL 70-110 H Perfor med by certified code = GLUBED) dredge operator at [facility] GLUCOSE [id number] 20:06:00 Test Item Value Reference Range Interpretation Comments GLUCOSE BEDSIDE (test 236 MG/DL 70-110 H Perfor med by certified code = GLUBED) dredge operator at [facility] GLUCOSE [id number] 16:11:00 Test Item Value Reference Range Interpretation Comments GLUCOSE BEDSIDE (test 224 MG/DL 70-110 H Perfor med by certified code = GLUBED) dredge operator at [facility] GLUCOSE [id number] 11:46:00 Test Item Value Reference Range Interpretation Comments GLUCOSE BEDSIDE (test 96 MG/DL 70-110 N Perfor med by certified code = GLUBED) dredge operator at [facility] CBC W/AUTO [id number] 07:51:00 Test Item Value Reference Range Interpretation Comments WHITE BLOOD CELL (test code = 13.3 x10 3/uL 4.5-11.0 H WBC) RED BLOOD CELL (test code = 2.79 x10 6/uL 4.00-5.60 L RBC) HEMOGLOBIN (test code = HGB) 8.0 g/dL 12.5-16.9 L HEMATOCRIT (test code = HCT) 25.0 % 37.5-50.7 L MEAN CELL VOLUME (test code = 89.6 fL 81.0-99.0 N MCV) MEAN CELL HGB (test code = MCH) 28.7 pg 27.0-33.0 N MEAN CELL HGB CONCETRATION 32.0 g/dL 33.0-37.0 L (test code = MCHC) RED CELL DISTRIBUTION WIDTH CV 14.9 % 11.5-14.5 H (test code = RDW) RED CELL DISTRIBUTION WIDTH SD 48.2 fL 37.0-54.0 N (test code = RDW-SD) PLATELET COUNT (test code = 347 x10 3/uL 150-400 N PLT) MEAN PLATELET VOLUME (test code 9.1 fL 7.0-9.0 H = MPV) NEUTROPHIL % (test code = NT%) 71.4 % 56.0-77.0 N IMMATURE GRANULOCYTE % (test 1.1 % 0.0-2.0 N code = IG%) LYMPHOCYTE % (test code = LY%) 16.5 % 14.0-32.0 N MONOCYTE % (test code = MO%) 8.4 % 4.8-9.0 N EOSINOPHIL % (test code = EO%) 2.4 % 0.3-3.7 N BASOPHIL % (test code = BA%) 0.2 % 0.0-2.0 N NUCLEATED RBC % (test code = 0.0 % 0-0 N NRBC%) NEUTROPHIL # (test code = NT#) 9.50 x10 3/uL 2.0-7.6 H IMMATURE GRANULOCYTE # (test 0.14 x10 3/uL 0.00-0.03 H code = IG#) LYMPHOCYTE # (test code = LY#) 2.19 x10 3/uL 1.0-3.8 N MONOCYTE # (test code = MO#) 1.11 x10 3/uL 0.1-0.8 H EOSINOPHIL # (test code = EO#) 0.32 x10 3/uL 0.0-0.2 H BASOPHIL # (test code = BA#) 0.02 x10 3/uL 0.0-0.2 N NUCLEATED RBC # (test code = 0.00 x10 3/uL 0.0-0.1 N NRBC#) MANUAL DIFF REQUIRED (test code NO = MDIFF) BASIC METABOLIC [id number] 07:34:00 Test Item Value Reference Range Interpretation Comments SODIUM (test code = 139 mEq/L 134-147 N NA) POTASSIUM (test code 3.8 mEq/L 3.4-5.0 N = K) CHLORIDE (test code 108 mEq/L 100-108 N = CL) CARBON DIOXIDE (test 22 mEq/l 21-33 N code = CO2) ANION GAP (test code 13 0-20 N = GAP) GLUCOSE (test code = 61 mg/dL 70-110 L GLU) BLOOD UREA NITROGEN 72 mg/dL 7-18 H (test code = BUN) GLOMERULAR 32.1 90-95 L The Glomerular FILTRATION RATE Filtration R ate is a (test code = GFR) calculated parameterbased on serum Creatinine, pat ient age and sex. GFR va luesless than 60 mL/min/ 1.73 square meters a re indicative ofCh ronic Kidney Disease. Values less than 15 mL/min/1.73squa re meters indicate Kidney failure. The calculation forGFR is based on the CKD-EPI (2020) calculat ion. This formulais race indifferent and is the recommended for rodrigo for GFRby the [facility] on for Adults.The GFR will not calculate if th e sex is unknown or if thepatient's ag e is <18 years. CREATININE (test 2.3 mg/dL 0.6-1.3 H code = CREAT) CALCIUM (test code = 7.5 mg/dL 8.0-10.5 L CA) [id number] 07:34:00 Test Item Value Reference Range Interpretation Comments PHOSPHOROUS (test code = PHOS) 5.0 MG/DL 2.5-4.9 H [id number] 07:34:00 Test Item Value Reference Range Interpretation Comments MAGNESIUM (test code = MAG) 1.69 mg/dL 1.80-2.40 L GLUCOSE [id number] 05:10:00 Test Item Value Reference Range Interpretation Comments GLUCOSE BEDSIDE (test 162 MG/DL 70-110 H Perfor med by certified code = GLUBED) dredge operator at [facility] GLUCOSE [id number] 22:02:00 Test Item Value Reference Range Interpretation Comments GLUCOSE BEDSIDE (test 103 MG/DL 70-110 N Perfor med by certified code = GLUBED) dredge operator at [facility] GLUCOSE [id number] 20:07:00 Test Item Value Reference Range Interpretation Comments GLUCOSE BEDSIDE (test 70 MG/DL 70-110 N Perfor med by certified code = GLUBED) dredge operator at [facility] GLUCOSE [id number] 16:28:00 Test Item Value Reference Range Interpretation Comments GLUCOSE BEDSIDE (test 118 MG/DL 70-110 H Perfor med by certified code = GLUBED) dredge operator at [facility] ANTINUCLEAR ANTIBODIES [id number] 12:11:00 Test Item Value Reference Range Interpretation Comments FANNIE SCREEN (test Negative See_Comment Negative < 1:80 Borderline code = ANASCR) 1:80 Positiv e >1:80ICAP nomenclature: A C-0For more information abo ut Hep-2 cell patterns useANApatterns. org, the official websit e for theInternationa l Consensus on Antinuclear Antibody (FANNIE)Patterns (ICAP).Performe d At: [facility] [address] [id number] Castro MD Ph:[phone] [ Automated message] The sy stem which generated this result transmitted ref erence range: (). The reference range was not u sed to interpret this result as normal/abnormal . COMPLEMENT [id number] 12:11:00 Test Item Value Reference Range Interpretation Comments COMPLEMENT C3 (test 121 mg/dL 82-167 Performe d At: code = COMC3) [facility] [address] [place], [place] [id number] Kyle L MD Ph:[phone] COMPLEMENT [id number] 12:11:00 Test Item Value Reference Range Interpretation Comments COMPLEMENT C4 (test code = COMC4) 31 mg/dL 12-38 GLUCOSE [id number] 11:16:00 Test Item Value Reference Range Interpretation Comments GLUCOSE BEDSIDE (test 80 MG/DL 70-110 N Perfor med by certified code = GLUBED) dredge operator at [facility] GLUCOSE [id number] 09:18:00 Test Item Value Reference Range Interpretation Comments GLUCOSE BEDSIDE (test 171 MG/DL 70-110 H Perfor med by certified code = GLUBED) dredge operator at [facility] CBC W/AUTO [id number] 07:52:00 Test Item Value Reference Range Interpretation Comments WHITE BLOOD CELL (test code = 10.6 x10 3/uL 4.5-11.0 N WBC) RED BLOOD CELL (test code = 2.67 x10 6/uL 4.00-5.60 L RBC) HEMOGLOBIN (test code = HGB) 7.6 g/dL 12.5-16.9 L HEMATOCRIT (test code = HCT) 23.7 % 37.5-50.7 L MEAN CELL VOLUME (test code = 88.8 fL 81.0-99.0 N MCV) MEAN CELL HGB (test code = MCH) 28.5 pg 27.0-33.0 N MEAN CELL HGB CONCETRATION 32.1 g/dL 33.0-37.0 L (test code = MCHC) RED CELL DISTRIBUTION WIDTH CV 14.8 % 11.5-14.5 H (test code = RDW) RED CELL DISTRIBUTION WIDTH SD 47.2 fL 37.0-54.0 N (test code = RDW-SD) PLATELET COUNT (test code = 341 x10 3/uL 150-400 N PLT) MEAN PLATELET VOLUME (test code 9.2 fL 7.0-9.0 H = MPV) NEUTROPHIL % (test code = NT%) 74.6 % 56.0-77.0 N IMMATURE GRANULOCYTE % (test 0.9 % 0.0-2.0 N code = IG%) LYMPHOCYTE % (test code = LY%) 17.4 % 14.0-32.0 N MONOCYTE % (test code = MO%) 6.9 % 4.8-9.0 N EOSINOPHIL % (test code = EO%) 0.1 % 0.3-3.7 L BASOPHIL % (test code = BA%) 0.1 % 0.0-2.0 N NUCLEATED RBC % (test code = 0.0 % 0-0 N NRBC%) NEUTROPHIL # (test code = NT#) 7.91 x10 3/uL 2.0-7.6 H IMMATURE GRANULOCYTE # (test 0.10 x10 3/uL 0.00-0.03 H code = IG#) LYMPHOCYTE # (test code = LY#) 1.85 x10 3/uL 1.0-3.8 N MONOCYTE # (test code = MO#) 0.73 x10 3/uL 0.1-0.8 N EOSINOPHIL # (test code = EO#) 0.01 x10 3/uL 0.0-0.2 N BASOPHIL # (test code = BA#) 0.01 x10 3/uL 0.0-0.2 N NUCLEATED RBC # (test code = 0.00 x10 3/uL 0.0-0.1 N NRBC#) MANUAL DIFF REQUIRED (test code NO = MDIFF) BASIC METABOLIC [id number] 07:47:00 Test Item Value Reference Range Interpretation Comments SODIUM (test code = 138 mEq/L 134-147 N NA) POTASSIUM (test code 4.1 mEq/L 3.4-5.0 N = K) CHLORIDE (test code 108 mEq/L 100-108 N = CL) CARBON DIOXIDE (test 21 mEq/l 21-33 N code = CO2) ANION GAP (test code 13 0-20 N = GAP) GLUCOSE (test code = 201 mg/dL 70-110 H GLU) BLOOD UREA NITROGEN 66 mg/dL 7-18 H (test code = BUN) GLOMERULAR 33.9 90-95 L The Glomerular FILTRATION RATE Filtration R ate is a (test code = GFR) calculated parameterbased on serum Creatinine, pat ient age and sex. GFR va luesless than 60 mL/min/ 1.73 square meters a re indicative ofCh ronic Kidney Disease. Values less than 15 mL/min/1.73squa re meters indicate Kidney failure. The calculation forGFR is based on the CKD-EPI (2020) calculat ion. This formulais race indifferent and is the recommended for rodrigo for GFRby the [facility] Kidney Foundati on for Adults.The GFR will not calculate if th e sex is unknown or if thepatient's ag e is <18 years. CREATININE (test 2.2 mg/dL 0.6-1.3 H code = CREAT) CALCIUM (test code = 7.5 mg/dL 8.0-10.5 L CA) [id number] 07:47:00 Test Item Value Reference Range Interpretation Comments PHOSPHOROUS (test code = PHOS) 4.4 MG/DL 2.5-4.9 N [id number] 07:47:00 Test Item Value Reference Range Interpretation Comments MAGNESIUM (test code = MAG) 1.83 mg/dL 1.80-2.40 N GLUCOSE [id number] 05:52:00 Test Item Value Reference Range Interpretation Comments GLUCOSE BEDSIDE (test 203 MG/DL 70-110 H Perfor med by certified code = GLUBED) dredge operator at [facility] GLUCOSE [id number] 19:34:00 Test Item Value Reference Range Interpretation Comments GLUCOSE BEDSIDE (test 160 MG/DL 70-110 H Perfor med by certified code = GLUBED) dredge operator at [facility] GLUCOSE [id number] 16:16:00 Test Item Value Reference Range Interpretation Comments GLUCOSE BEDSIDE (test 75 MG/DL 70-110 N Perfor med by certified code = GLUBED) dredge operator at [facility] GLUCOSE [id number] 10:44:00 Test Item Value Reference Range Interpretation Comments GLUCOSE BEDSIDE (test 256 MG/DL 70-110 H Perfor med by certified code = GLUBED) dredge operator at [facility] GLUCOSE [id number] 10:03:00 Test Item Value Reference Range Interpretation Comments GLUCOSE BEDSIDE (test 287 MG/DL 70-110 H Perfor med by certified code = GLUBED) dredge operator at [facility] CBC W/AUTO [id number] 09:09:00 Test Item Value Reference Range Interpretation Comments WHITE BLOOD CELL (test code = 8.9 x10 3/uL 4.5-11.0 N WBC) RED BLOOD CELL (test code = 2.83 x10 6/uL 4.00-5.60 L RBC) HEMOGLOBIN (test code = HGB) 8.1 g/dL 12.5-16.9 L HEMATOCRIT (test code = HCT) 24.9 % 37.5-50.7 L MEAN CELL VOLUME (test code = 88.0 fL 81.0-99.0 N MCV) MEAN CELL HGB (test code = MCH) 28.6 pg 27.0-33.0 N MEAN CELL HGB CONCETRATION 32.5 g/dL 33.0-37.0 L (test code = MCHC) RED CELL DISTRIBUTION WIDTH CV 14.6 % 11.5-14.5 H (test code = RDW) RED CELL DISTRIBUTION WIDTH SD 46.3 fL 37.0-54.0 N (test code = RDW-SD) PLATELET COUNT (test code = 374 x10 3/uL 150-400 N PLT) MEAN PLATELET VOLUME (test code 9.6 fL 7.0-9.0 H = MPV) NEUTROPHIL % (test code = NT%) 85.2 % 56.0-77.0 H IMMATURE GRANULOCYTE % (test 1.6 % 0.0-2.0 N code = IG%) LYMPHOCYTE % (test code = LY%) 10.2 % 14.0-32.0 L MONOCYTE % (test code = MO%) 2.9 % 4.8-9.0 L EOSINOPHIL % (test code = EO%) 0.0 % 0.3-3.7 L BASOPHIL % (test code = BA%) 0.1 % 0.0-2.0 N NUCLEATED RBC % (test code = 0.0 % 0-0 N NRBC%) NEUTROPHIL # (test code = NT#) 7.58 x10 3/uL 2.0-7.6 N IMMATURE GRANULOCYTE # (test 0.14 x10 3/uL 0.00-0.03 H code = IG#) LYMPHOCYTE # (test code = LY#) 0.91 x10 3/uL 1.0-3.8 L MONOCYTE # (test code = MO#) 0.26 x10 3/uL 0.1-0.8 N EOSINOPHIL # (test code = EO#) 0.00 x10 3/uL 0.0-0.2 N BASOPHIL # (test code = BA#) 0.01 x10 3/uL 0.0-0.2 N NUCLEATED RBC # (test code = 0.00 x10 3/uL 0.0-0.1 N NRBC#) MANUAL DIFF REQUIRED (test code NO = MDIFF) BASIC METABOLIC [id number] 07:34:00 Test Item Value Reference Range Interpretation Comments SODIUM (test code = 136 mEq/L 134-147 N NA) POTASSIUM (test code 4.5 mEq/L 3.4-5.0 N = K) CHLORIDE (test code 107 mEq/L 100-108 N = CL) CARBON DIOXIDE (test 21 mEq/l 21-33 N code = CO2) ANION GAP (test code 12 0-20 N = GAP) GLUCOSE (test code = 285 mg/dL 70-110 H GLU) BLOOD UREA NITROGEN 66 mg/dL 7-18 H (test code = BUN) GLOMERULAR 30.5 90-95 L The Glomerular FILTRATION RATE Filtration R ate is a (test code = GFR) calculated parameterbased on serum Creatinine, pat ient age and sex. GFR va luesless than 60 mL/min/ 1.73 square meters a re indicative ofCh ronic Kidney Disease. Values less than 15 mL/min/1.73squa re meters indicate Kidney failure. The calculation forGFR is based on the CKD-EPI (2020) calculat ion. This formulais race indifferent and is the recommended for rodrigo for GFRby the [facility] Kidney Foundati on for Adults.The GFR will not calculate if th e sex is unknown or if thepatient's ag e is <18 years. CREATININE (test 2.4 mg/dL 0.6-1.3 H code = CREAT) CALCIUM (test code = 7.4 mg/dL 8.0-10.5 L CA) [id number] 07:34:00 Test Item Value Reference Range Interpretation Comments PHOSPHOROUS (test code = PHOS) 4.5 MG/DL 2.5-4.9 N [id number] 07:34:00 Test Item Value Reference Range Interpretation Comments MAGNESIUM (test code = MAG) 1.97 mg/dL 1.80-2.40 N GLUCOSE [id number] 06:16:00 Test Item Value Reference Range Interpretation Comments GLUCOSE BEDSIDE (test 286 MG/DL 70-110 H Perfor med by certified code = GLUBED) dredge operator at [facility] GLUCOSE [id number] 05:03:00 Test Item Value Reference Range Interpretation Comments GLUCOSE BEDSIDE (test 273 MG/DL 70-110 H Perfor med by certified code = GLUBED) dredge operator at [facility] GLUCOSE [id number] 00:02:00 Test Item Value Reference Range Interpretation Comments GLUCOSE BEDSIDE (test 291 MG/DL 70-110 H Perfor med by certified code = GLUBED) dredge operator at [facility] GLUCOSE [id number] 19:47:00 Test Item Value Reference Range Interpretation Comments GLUCOSE BEDSIDE (test 219 MG/DL 70-110 H Perfor med by certified code = GLUBED) dredge operator at [facility] GLUCOSE [id number] 16:01:00 Test Item Value Reference Range Interpretation Comments GLUCOSE BEDSIDE (test 62 MG/DL 70-110 L Perfor med by certified code = GLUBED) dredge operator at [facility] GLUCOSE [id number] 14:54:00 Test Item Value Reference Range Interpretation Comments GLUCOSE BEDSIDE (test 60 MG/DL 70-110 L Perfor med by certified code = GLUBED) dredge operator at [facility] GLUCOSE [id number] 11:23:00 Test Item Value Reference Range Interpretation Comments GLUCOSE BEDSIDE (test 148 MG/DL 70-110 H Perfor med by certified code = GLUBED) dredge operator at [facility] BASIC METABOLIC [id number] 08:08:00 Test Item Value Reference Range Interpretation Comments SODIUM (test code = 135 mEq/L 134-147 N NA) POTASSIUM (test code 4.5 mEq/L 3.4-5.0 N = K) CHLORIDE (test code 108 mEq/L 100-108 N = CL) CARBON DIOXIDE (test 20 mEq/l 21-33 L code = CO2) ANION GAP (test code 11 0-20 N = GAP) GLUCOSE (test code = 175 mg/dL 70-110 H GLU) BLOOD UREA NITROGEN 60 mg/dL 7-18 H (test code = BUN) GLOMERULAR 26.5 90-95 L The Glomerular FILTRATION RATE Filtration R ate is a (test code = GFR) calculated parameterbased on serum Creatinine, pat ient age and sex. GFR va luesless than 60 mL/min/ 1.73 square meters a re indicative ofCh ronic Kidney Disease. Values less than 15 mL/min/1.73squa re meters indicate Kidney failure. The calculation forGFR is based on the CKD-EPI (2020) calculat ion. This formulais race indifferent and is the recommended for [facility] for GFRby the [facility] on for Adults.The GFR will not calculate if th e sex is unknown or if thepatient's ag e is <18 years. CREATININE (test 2.7 mg/dL 0.6-1.3 H code = CREAT) CALCIUM (test code = 7.5 mg/dL 8.0-10.5 L CA) [id number] 08:08:00 Test Item Value Reference Range Interpretation Comments PHOSPHOROUS (test code = PHOS) 4.6 MG/DL 2.5-4.9 N [id number] 08:08:00 Test Item Value Reference Range Interpretation Comments MAGNESIUM (test code = MAG) 1.93 mg/dL 1.80-2.40 N CBC W/AUTO [id number] 07:27:00 Test Item Value Reference Range Interpretation Comments WHITE BLOOD CELL (test code = 9.5 x10 3/uL 4.5-11.0 N WBC) RED BLOOD CELL (test code = 2.70 x10 6/uL 4.00-5.60 L RBC) HEMOGLOBIN (test code = HGB) 7.6 g/dL 12.5-16.9 L HEMATOCRIT (test code = HCT) 23.7 % 37.5-50.7 L MEAN CELL VOLUME (test code = 87.8 fL 81.0-99.0 MCV) MEAN CELL HGB (test code = MCH) 28.1 pg 27.0-33.0 N MEAN CELL HGB CONCETRATION 32.1 g/dL 33.0-37.0 L (test code = MCHC) RED CELL DISTRIBUTION WIDTH CV 14.6 % 11.5-14.5 H (test code = RDW) RED CELL DISTRIBUTION WIDTH SD 46.5 fL 37.0-54.0 N (test code = RDW-SD) PLATELET COUNT (test code = 360 x10 3/uL 150-400 N PLT) MEAN PLATELET VOLUME (test code 9.6 fL 7.0-9.0 H = MPV) NEUTROPHIL % (test code = NT%) 73.4 % 56.0-77.0 N IMMATURE GRANULOCYTE % (test 1.0 % 0.0-2.0 N code = IG%) LYMPHOCYTE % (test code = LY%) 18.6 % 14.0-32.0 N MONOCYTE % (test code = MO%) 6.7 % 4.8-9.0 N EOSINOPHIL % (test code = EO%) 0.2 % 0.3-3.7 L BASOPHIL % (test code = BA%) 0.1 % 0.0-2.0 N NUCLEATED RBC % (test code = 0.0 % 0-0 N NRBC%) NEUTROPHIL # (test code = NT#) 6.99 x10 3/uL 2.0-7.6 N IMMATURE GRANULOCYTE # (test 0.10 x10 3/uL 0.00-0.03 H code = IG#) LYMPHOCYTE # (test code = LY#) 1.77 x10 3/uL 1.0-3.8 N MONOCYTE # (test code = MO#) 0.64 x10 3/uL 0.1-0.8 N EOSINOPHIL # (test code = EO#) 0.02 x10 3/uL 0.0-0.2 N BASOPHIL # (test code = BA#) 0.01 x10 3/uL 0.0-0.2 N NUCLEATED RBC # (test code = 0.00 x10 3/uL 0.0-0.1 N NRBC#) MANUAL DIFF REQUIRED (test code NO = MDIFF) GLUCOSE [id number] 06:07:00 Test Item Value Reference Range Interpretation Comments GLUCOSE BEDSIDE (test 195 MG/DL 70-110 H Perfor med by certified code = GLUBED) dredge operator at [facility] GLUCOSE [id number] 20:10:00 Test Item Value Reference Range Interpretation Comments GLUCOSE BEDSIDE (test 124 MG/DL 70-110 H Perfor med by certified code = GLUBED) dredge operator at [facility] GLUCOSE [id number] 16:55:00 Test Item Value Reference Range Interpretation Comments GLUCOSE BEDSIDE (test 137 MG/DL 70-110 H Perfor med by certified code = GLUBED) dredge operator at [facility] URINALYSIS [id number] 13:55:00 Test Item Value Reference Range Interpretation Comments UA COLOR (test code = COLU) YELLOW YEL/STRAW UA APPEARANCE (test code = SL CLOUDY CLEAR APPU) UA GLUCOSE DIPSTICK (test code 2+ NEGATIVE A = DGLUU) UA BILIRUBIN DIPSTICK (test NEGATIVE NEGATIVE code = BILU) UA KETONE DIPSTICK (test code = NEGATIVE NEGATIVE KETU) UA SPECIFIC GRAVITY (test code 1.013 1.005-1.030 N = SGU) UA BLOOD DIPSTICK (test code = 2+ NEGATIVE A YOSI) UA PH DIPSTICK (test code = 5.0 5.0-7.0 N STEFFEN) UA PROTEIN DIPSTICK (test code 2+ NEGATIVE A = PROU) UA UROBILINIOGEN DIPSTICK (test 0.2 mg/dL 0.2-1.0 code = URO) UA NITRITE DIPSTICK (test code NEGATIVE NEGATIVE = NOE) UA LEUKOCYTE ESTERASE DIPSTICK TRACE NEGATIVE A (test code = LEUU) UA RBC (test code = RBCU) 21-50 RBC/HPF 0-3 UA WBC NO REFLEX (test code = 4-9 WBC/HPF 0-3 A WBCUCL) UA BACTERIA (test code = BACU) TRACE /HPF NONE SEEN UA SQUAMOUS CELLS (test code = 0-5 /HPF NONE SEEN SQU) UA TRANSITIONAL CELLS (test TRACE /HPF NONE SEEN code = TRANU) UA GRANULAR CAST (test code = 3-5 /LPF NONE GRANU) UA MUCUS (test code = MUCU) TRACE /LPF NONE SEEN UR PROTEIN [id number] 13:55:00 Test Item Value Reference Range Interpretation Comments UR PROTEIN RANDOM (test code = 283 mg/dL PROTU) UR CREATININE [id number] 13:55:00 Test Item Value Reference Range Interpretation Comments UR CREATININE 52.5 mg/dL The Reference Range and RANDOM (test code Method Per formance = CREATU) specificationsh ave not been establishe d for this fluid. The test resultshould be correlated into the clinical contex t forinterpretati on. GLUCOSE [id number] 12:06:00 Test Item Value Reference Range Interpretation Comments GLUCOSE BEDSIDE (test 126 MG/DL 70-110 H Perfor med by certified code = GLUBED) dredge operator at [facility] BASIC METABOLIC [id number] 08:02:00 Test Item Value Reference Range Interpretation Comments SODIUM (test code = 132 mEq/L 134-147 L NA) POTASSIUM (test code 4.7 mEq/L 3.4-5.0 N = K) CHLORIDE (test code 105 mEq/L 100-108 N = CL) CARBON DIOXIDE (test 17 mEq/l 21-33 L code = CO2) ANION GAP (test code 15 0-20 N = GAP) GLUCOSE (test code = 312 mg/dL 70-110 H GLU) BLOOD UREA NITROGEN 38 mg/dL 7-18 H (test code = BUN) GLOMERULAR 24.3 90-95 L The Glomerular FILTRATION RATE Filtration R ate is a (test code = GFR) calculated parameterbased on serum Creatinine, pat ient age and sex. GFR va luesless than 60 mL/min/ 1.73 square meters a re indicative ofCh ronic Kidney Disease. Values less than 15 mL/min/1.73squa re meters indicate Kidney failure. The calculation forGFR is based on the CKD-EPI (2020) calculat ion. This formulais race indifferent and is the recommended for rodrigo for GFRby the [facility] on for Adults.The GFR will not calculate if th e sex is unknown or if thepatient's ag e is <18 years. CREATININE (test 2.9 mg/dL 0.6-1.3 H code = CREAT) CALCIUM (test code = 7.2 mg/dL 8.0-10.5 L CA) [id number] 08:02:00 Test Item Value Reference Range Interpretation Comments ALBUMIN (test code = ALB) 1.50 g/dL 3.4-5.0 L [id number] 08:02:00 Test Item Value Reference Range Interpretation Comments PHOSPHOROUS (test code = PHOS) 5.7 MG/DL 2.5-4.9 H CREATINE KINASE (CK)2022-09-15 08:02:00 Test Item Value Reference Range Interpretation Comments CREATINE KINASE (CK) (test code = 26 Units/L 46-171 L CK) [id number] 08:02:00 Test Item Value Reference Range Interpretation Comments MAGNESIUM (test code = MAG) 1.96 mg/dL 1.80-2.40 N [id number] 08:02:00 Test Item Value Reference Range Interpretation Comments PREALBUMIN (test code = PREALB) 8.0 mg/dL 16.0-40.0 L CBC W/AUTO [id number] 07:38:00 Test Item Value Reference Range Interpretation Comments WHITE BLOOD CELL (test code = 8.7 x10 3/uL 4.5-11.0 N WBC) RED BLOOD CELL (test code = 2.88 x10 6/uL 4.00-5.60 L RBC) HEMOGLOBIN (test code = HGB) 8.2 g/dL 12.5-16.9 L HEMATOCRIT (test code = HCT) 26.5 % 37.5-50.7 L MEAN CELL VOLUME (test code = 92.0 fL 81.0-99.0 N MCV) MEAN CELL HGB (test code = MCH) 28.5 pg 27.0-33.0 N MEAN CELL HGB CONCETRATION 30.9 g/dL 33.0-37.0 L (test code = MCHC) RED CELL DISTRIBUTION WIDTH CV 14.3 % 11.5-14.5 N (test code = RDW) RED CELL DISTRIBUTION WIDTH SD 48.5 fL 37.0-54.0 N (test code = RDW-SD) PLATELET COUNT (test code = 341 x10 3/uL 150-400 N PLT) MEAN PLATELET VOLUME (test code 9.1 fL 7.0-9.0 H = MPV) NEUTROPHIL % (test code = NT%) 84.9 % 56.0-77.0 H IMMATURE GRANULOCYTE % (test 0.5 % 0.0-2.0 N code = IG%) LYMPHOCYTE % (test code = LY%) 11.3 % 14.0-32.0 L MONOCYTE % (test code = MO%) 3.2 % 4.8-9.0 L EOSINOPHIL % (test code = EO%) 0.0 % 0.3-3.7 L BASOPHIL % (test code = BA%) 0.1 % 0.0-2.0 N NUCLEATED RBC % (test code = 0.0 % 0-0 N NRBC%) NEUTROPHIL # (test code = NT#) 7.35 x10 3/uL 2.0-7.6 N IMMATURE GRANULOCYTE # (test 0.04 x10 3/uL 0.00-0.03 H code = IG#) LYMPHOCYTE # (test code = LY#) 0.98 x10 3/uL 1.0-3.8 L MONOCYTE # (test code = MO#) 0.28 x10 3/uL 0.1-0.8 N EOSINOPHIL # (test code = EO#) 0.00 x10 3/uL 0.0-0.2 N BASOPHIL # (test code = BA#) 0.01 x10 3/uL 0.0-0.2 N NUCLEATED RBC # (test code = 0.00 x10 3/uL 0.0-0.1 N NRBC#) MANUAL DIFF REQUIRED (test code NO = MDIFF) GLUCOSE [id number] 05:41:00 Test Item Value Reference Range Interpretation Comments GLUCOSE BEDSIDE (test 309 MG/DL 70-110 H Perfor med by certified code = GLUBED) dredge operator at [facility] GLUCOSE [id number] 19:58:00 Test Item Value Reference Range Interpretation Comments GLUCOSE BEDSIDE (test 193 MG/DL 70-110 H Perfor med by certified code = GLUBED) dredge operator at [facility] GLUCOSE [id number] 16:03:00 Test Item Value Reference Range Interpretation Comments GLUCOSE BEDSIDE (test 60 MG/DL 70-110 L Perfor med by certified code = GLUBED) dredge operator at [facility] GLUCOSE [id number] 12:33:00 Test Item Value Reference Range Interpretation Comments GLUCOSE BEDSIDE (test 137 MG/DL 70-110 H Perfor med by certified code = GLUBED) dredge operator at [facility] GLUCOSE [id number] 07:47:00 Test Item Value Reference Range Interpretation Comments GLUCOSE BEDSIDE (test 290 MG/DL 70-110 H Perfor med by certified code = GLUBED) dredge operator at [facility] BASIC METABOLIC [id number] 07:42:00 Test Item Value Reference Range Interpretation Comments SODIUM (test code = 132 mEq/L 134-147 L NA) POTASSIUM (test code 4.4 mEq/L 3.4-5.0 N = K) CHLORIDE (test code 104 mEq/L 100-108 N = CL) CARBON DIOXIDE (test 19 mEq/l 21-33 L code = CO2) ANION GAP (test code 14 0-20 N = GAP) GLUCOSE (test code = 325 mg/dL 70-110 H GLU) BLOOD UREA NITROGEN 38 mg/dL 7-18 H (test code = BUN) GLOMERULAR 25.4 90-95 L The Glomerular FILTRATION RATE Filtration R ate is a (test code = GFR) calculated parameterbased on serum Creatinine, pat ient age and sex. GFR va luesless than 60 mL/min/ 1.73 square meters a re indicative ofCh ronic Kidney Disease. Values less than 15 mL/min/1.73squa re meters indicate Kidney failure. The calculation forGFR is based on the CKD-EPI (2020) calculat ion. This formulais race indifferent and is the recommended for rodrigo for GFRby the [facility] on for Adults.The GFR will not calculate if th e sex is unknown or if thepatient's ag e is <18 years. CREATININE (test 2.8 mg/dL 0.6-1.3 H code = CREAT) CALCIUM (test code = 7.5 mg/dL 8.0-10.5 L CA) CBC W/AUTO [id number] 07:17:00 Test Item Value Reference Range Interpretation Comments WHITE BLOOD CELL (test code = 9.5 x10 3/uL 4.5-11.0 N WBC) RED BLOOD CELL (test code = 2.83 x10 6/uL 4.00-5.60 L RBC) HEMOGLOBIN (test code = HGB) 8.0 g/dL 12.5-16.9 L HEMATOCRIT (test code = HCT) 25.3 % 37.5-50.7 L MEAN CELL VOLUME (test code = 89.4 fL 81.0-99.0 N MCV) MEAN CELL HGB (test code = MCH) 28.3 pg 27.0-33.0 N MEAN CELL HGB CONCETRATION 31.6 g/dL 33.0-37.0 L (test code = MCHC) RED CELL DISTRIBUTION WIDTH CV 14.0 % 11.5-14.5 N (test code = RDW) RED CELL DISTRIBUTION WIDTH SD 45.4 fL 37.0-54.0 N (test code = RDW-SD) PLATELET COUNT (test code = 322 x10 3/uL 150-400 N PLT) MEAN PLATELET VOLUME (test code 9.3 fL 7.0-9.0 H = MPV) NEUTROPHIL % (test code = NT%) 80.2 % 56.0-77.0 H IMMATURE GRANULOCYTE % (test 0.7 % 0.0-2.0 N code = IG%) LYMPHOCYTE % (test code = LY%) 13.9 % 14.0-32.0 L MONOCYTE % (test code = MO%) 5.1 % 4.8-9.0 N EOSINOPHIL % (test code = EO%) 0.0 % 0.3-3.7 L BASOPHIL % (test code = BA%) 0.1 % 0.0-2.0 N NUCLEATED RBC % (test code = 0.0 % 0-0 N NRBC%) NEUTROPHIL # (test code = NT#) 7.58 x10 3/uL 2.0-7.6 N IMMATURE GRANULOCYTE # (test 0.07 x10 3/uL 0.00-0.03 H code = IG#) LYMPHOCYTE # (test code = LY#) 1.31 x10 3/uL 1.0-3.8 N MONOCYTE # (test code = MO#) 0.48 x10 3/uL 0.1-0.8 N EOSINOPHIL # (test code = EO#) 0.00 x10 3/uL 0.0-0.2 N BASOPHIL # (test code = BA#) 0.01 x10 3/uL 0.0-0.2 N NUCLEATED RBC # (test code = 0.00 x10 3/uL 0.0-0.1 N NRBC#) MANUAL DIFF REQUIRED (test code NO = MDIFF) GLUCOSE [id number] 05:52:00 Test Item Value Reference Range Interpretation Comments GLUCOSE BEDSIDE (test 334 MG/DL 70-110 H Perfor med by certified code = GLUBED) dredge operator at [facility] GLUCOSE [id number] 19:56:00 Test Item Value Reference Range Interpretation Comments GLUCOSE BEDSIDE (test 248 MG/DL 70-110 H Perfor med by certified code = GLUBED) dredge operator at [facility] GLUCOSE [id number] 17:45:00 Test Item Value Reference Range Interpretation Comments GLUCOSE BEDSIDE (test 130 MG/DL 70-110 H Perfor med by certified code = GLUBED) dredge operator at [facility] GLUCOSE [id number] 12:16:00 Test Item Value Reference Range Interpretation Comments GLUCOSE BEDSIDE (test 307 MG/DL 70-110 H Perfor med by certified code = GLUBED) dredge operator at [facility] CBC W/AUTO [id number] 08:13:00 Test Item Value Reference Range Interpretation Comments WHITE BLOOD CELL (test code = 9.8 x10 3/uL 4.5-11.0 N WBC) RED BLOOD CELL (test code = 2.90 x10 6/uL 4.00-5.60 L RBC) HEMOGLOBIN (test code = HGB) 8.2 g/dL 12.5-16.9 L HEMATOCRIT (test code = HCT) 25.4 % 37.5-50.7 L MEAN CELL VOLUME (test code = 87.6 fL 81.0-99.0 N MCV) MEAN CELL HGB (test code = MCH) 28.3 pg 27.0-33.0 N MEAN CELL HGB CONCETRATION 32.3 g/dL 33.0-37.0 L (test code = MCHC) RED CELL DISTRIBUTION WIDTH CV 13.7 % 11.5-14.5 N (test code = RDW) RED CELL DISTRIBUTION WIDTH SD 44.0 fL 37.0-54.0 N (test code = RDW-SD) PLATELET COUNT (test code = 288 x10 3/uL 150-400 N PLT) MEAN PLATELET VOLUME (test code 10.0 fL 7.0-9.0 H = MPV) NEUTROPHIL % (test code = NT%) 85.3 % 56.0-77.0 H IMMATURE GRANULOCYTE % (test 0.7 % 0.0-2.0 N code = IG%) LYMPHOCYTE % (test code = LY%) 10.4 % 14.0-32.0 L MONOCYTE % (test code = MO%) 3.5 % 4.8-9.0 L EOSINOPHIL % (test code = EO%) 0.0 % 0.3-3.7 L BASOPHIL % (test code = BA%) 0.1 % 0.0-2.0 N NUCLEATED RBC % (test code = 0.0 % 0-0 N NRBC%) NEUTROPHIL # (test code = NT#) 8.34 x10 3/uL 2.0-7.6 H IMMATURE GRANULOCYTE # (test 0.07 x10 3/uL 0.00-0.03 H code = IG#) LYMPHOCYTE # (test code = LY#) 1.02 x10 3/uL 1.0-3.8 N MONOCYTE # (test code = MO#) 0.34 x10 3/uL 0.1-0.8 N EOSINOPHIL # (test code = EO#) 0.00 x10 3/uL 0.0-0.2 N BASOPHIL # (test code = BA#) 0.01 x10 3/uL 0.0-0.2 N NUCLEATED RBC # (test code = 0.00 x10 3/uL 0.0-0.1 N NRBC#) MANUAL DIFF REQUIRED (test code NO = MDIFF) BASIC METABOLIC [id number] 07:31:00 Test Item Value Reference Range Interpretation Comments SODIUM (test code = 133 mEq/L 134-147 L NA) POTASSIUM (test code 4.6 mEq/L 3.4-5.0 N = K) CHLORIDE (test code 107 mEq/L 100-108 N = CL) CARBON DIOXIDE (test 19 mEq/l 21-33 L code = CO2) ANION GAP (test code 12 0-20 N = GAP) GLUCOSE (test code = 241 mg/dL 70-110 H GLU) BLOOD UREA NITROGEN 28 mg/dL 7-18 H (test code = BUN) GLOMERULAR 26.5 90-95 L The Glomerular FILTRATION RATE Filtration R ate is a (test code = GFR) calculated parameterbased on serum Creatinine, pat ient age and sex. GFR va luesless than 60 mL/min/ 1.73 square meters a re indicative ofCh ronic Kidney Disease. Values less than 15 mL/min/1.73squa re meters indicate Kidney failure. The calculation forGFR is based on the CKD-EPI (2020) calculat ion. This formulais race indifferent and is the recommended for rodrigo for GFRby the [facility] on for Adults.The GFR will not calculate if th e sex is unknown or if thepatient's ag e is <18 years. CREATININE (test 2.7 mg/dL 0.6-1.3 H code = CREAT) CALCIUM (test code = 7.8 mg/dL 8.0-10.5 L CA) [id number] 07:31:00 Test Item Value Reference Range Interpretation Comments PHOSPHOROUS (test code = PHOS) 4.7 MG/DL 2.5-4.9 N [id number] 07:31:00 Test Item Value Reference Range Interpretation Comments MAGNESIUM (test code = MAG) 1.92 mg/dL 1.80-2.40 N GLUCOSE [id number] 05:57:00 Test Item Value Reference Range Interpretation Comments GLUCOSE BEDSIDE (test 258 MG/DL 70-110 H Perfor med by certified code = GLUBED) dredge operator at [facility] GLUCOSE [id number] 20:29:00 Test Item Value Reference Range Interpretation Comments GLUCOSE BEDSIDE (test 223 MG/DL 70-110 H Perfor med by certified code = GLUBED) dredge operator at [facility] GLUCOSE [id number] 16:20:00 Test Item Value Reference Range Interpretation Comments GLUCOSE BEDSIDE (test 150 MG/DL 70-110 H Perfor med by certified code = GLUBED) dredge operator at [facility] UR SMEAR EOSINOPHIL [id number] 12:30:00 Test Item Value Reference Range Interpretation Comments UR SMEAR EOSINOPHIL COUNT (test NONE SEEN code = EOSCTU) B-TYPE NATRIURETIC [id number] 12:00:00 Test Item Value Reference Range Interpretation Comments B-TYPE NATRIURETIC PEPTIDE (test 297.0 PG/ML 0-100 H code = BNP) GLUCOSE [id number] 11:27:00 Test Item Value Reference Range Interpretation Comments GLUCOSE BEDSIDE (test 68 MG/DL 70-110 L Perfor med by certified code = GLUBED) dredge operator at [facility] CBC W/AUTO [id number] 07:35:00 Test Item Value Reference Range Interpretation Comments WHITE BLOOD CELL (test code = 8.8 x10 3/uL 4.5-11.0 N WBC) RED BLOOD CELL (test code = 2.73 x10 6/uL 4.00-5.60 L RBC) HEMOGLOBIN (test code = HGB) 7.7 g/dL 12.5-16.9 L HEMATOCRIT (test code = HCT) 23.7 % 37.5-50.7 L MEAN CELL VOLUME (test code = 86.8 fL 81.0-99.0 N MCV) MEAN CELL HGB (test code = MCH) 28.2 pg 27.0-33.0 N MEAN CELL HGB CONCETRATION 32.5 g/dL 33.0-37.0 L (test code = MCHC) RED CELL DISTRIBUTION WIDTH CV 13.8 % 11.5-14.5 N (test code = RDW) RED CELL DISTRIBUTION WIDTH SD 43.8 fL 37.0-54.0 N (test code = RDW-SD) PLATELET COUNT (test code = 248 x10 3/uL 150-400 N PLT) MEAN PLATELET VOLUME (test code 9.7 fL 7.0-9.0 H = MPV) NEUTROPHIL % (test code = NT%) 72.3 % 56.0-77.0 N IMMATURE GRANULOCYTE % (test 0.7 % 0.0-2.0 N code = IG%) LYMPHOCYTE % (test code = LY%) 15.0 % 14.0-32.0 N MONOCYTE % (test code = MO%) 7.9 % 4.8-9.0 N EOSINOPHIL % (test code = EO%) 3.8 % 0.3-3.7 H BASOPHIL % (test code = BA%) 0.3 % 0.0-2.0 N NUCLEATED RBC % (test code = 0.0 % 0-0 N NRBC%) NEUTROPHIL # (test code = NT#) 6.34 x10 3/uL 2.0-7.6 N IMMATURE GRANULOCYTE # (test 0.06 x10 3/uL 0.00-0.03 H code = IG#) LYMPHOCYTE # (test code = LY#) 1.31 x10 3/uL 1.0-3.8 N MONOCYTE # (test code = MO#) 0.69 x10 3/uL 0.1-0.8 N EOSINOPHIL # (test code = EO#) 0.33 x10 3/uL 0.0-0.2 H BASOPHIL # (test code = BA#) 0.03 x10 3/uL 0.0-0.2 N NUCLEATED RBC # (test code = 0.00 x10 3/uL 0.0-0.1 N NRBC#) MANUAL DIFF REQUIRED (test code NO = MDIFF) BASIC METABOLIC [id number] 07:27:00 Test Item Value Reference Range Interpretation Comments SODIUM (test code = 134 mEq/L 134-147 N NA) POTASSIUM (test code 4.2 mEq/L 3.4-5.0 N = K) CHLORIDE (test code 106 mEq/L 100-108 N = CL) CARBON DIOXIDE (test 20 mEq/l 21-33 L code = CO2) ANION GAP (test code 12 0-20 N = GAP) GLUCOSE (test code = 167 mg/dL 70-110 H GLU) BLOOD UREA NITROGEN 31 mg/dL 7-18 H (test code = BUN) GLOMERULAR 30.5 90-95 L The Glomerular FILTRATION RATE Filtration R ate is a (test code = GFR) calculated parameterbased on serum Creatinine, pat ient age and sex. GFR va luesless than 60 mL/min/ 1.73 square meters a re indicative ofCh ronic Kidney Disease. Values less than 15 mL/min/1.73squa re meters indicate Kidney failure. The calculation forGFR is based on the CKD-EPI (2020) calculat ion. This formulais race indifferent and is the recommended for rodrigo for GFRby the [facility]ney Found[facility] on for Adults.The GFR will not calculate if th e sex is unknown or if thepatient's ag e is <18 years. CREATININE (test 2.4 mg/dL 0.6-1.3 H code = CREAT) CALCIUM (test code = 8.2 mg/dL 8.0-10.5 N CA) [id number] 07:27:00 Test Item Value Reference Range Interpretation Comments PHOSPHOROUS (test code = PHOS) 4.4 MG/DL 2.5-4.9 N [id number] 07:27:00 Test Item Value Reference Range Interpretation Comments MAGNESIUM (test code = MAG) 1.86 mg/dL 1.80-2.40 N GLUCOSE [id number] 06:33:00 Test Item Value Reference Range Interpretation Comments GLUCOSE BEDSIDE (test 170 MG/DL 70-110 H Perfor med by certified code = GLUBED) dredge operator at [facility] - XR CHEST 1 [id number] 00:00:00 [facility]ARMA ROW[facility] : 1965 Sex: M FAX: Mj Sierra [phone] [place]: St: [facility] FAX: Rohit Benitez NP [phone] ----- Name: ROWLANDLASHAWN SHENO [facility] : 1965 Age/S: 56/M [address] [place] [address] Unit #: [id number] Loc: [address] [place] [address] Phys: Rohit Benitez NP Acct: [id number] Dis Date: Status: ADM IN PHONE #: [phone] Exam Date: 09/12/2022 1418 FAX #: [phone] Reason: rales and leg edema EXAMS: CPT CODE: [id number] XR CHEST 1 V [id number] PROCEDURE INFORMATION: Exam: XR Chest Exam date and time: 09/12/2022 1:52 PM Age: 56 years old Clinical indication: Other: Rales; Additional info: Rales and leg edema TECHNIQUE: Imaging protocol: Radiologic exam of the chest. Views: 1 view. COMPARISON: CR XR CHEST 1V 09/05/2022 2:30 PM FINDINGS: Tubes, catheters and devices: Stable right PICC line. Lungs: Worsening opacities in the right mid and lower lung reyes. Mildly improved left retrocardiac opacities. The other lung opacities are stable. Pleural spaces: No pleural effusion. No pneumothorax. Heart/Mediastinum: Stable heart size. Diaphragm: Stable elevation of the right hemidiaphragm. Bones/joints: Stable. IMPRESSION: Worsening opacities in the right mid and lower lung reyes. Mildly improved left retrocardiac opacities. at 2028 Reported and signed by: Abel Browne M.D. CC: Mj Vences; Rohit Benitez NP Technologist: RT Angela(Darnell) Trnscrd Date/Time/By: 09/12/2022 (2028) : By: [email or web address] Orig Print D/T: S: 09/12/2022 (2028) PAGE 1 Signed [id number] 22:00:00 Test Item Value Reference Range Interpretation Comments VANCOMYCIN (test code = VANCO) 16.7 mcg/mL GLUCOSE [id number] 19:49:00 Test Item Value Reference Range Interpretation Comments GLUCOSE BEDSIDE (test 150 MG/DL 70-110 H Perfor med by certified code = GLUBED) dredge operator at [facility] GLUCOSE [id number] 16:32:00 Test Item Value Reference Range Interpretation Comments GLUCOSE BEDSIDE (test 93 MG/DL 70-110 N Perfor med by certified code = GLUBED) dredge operator at [facility] [id number] 15:18:00 Test Item Value Reference Range Interpretation Comments VANCOMYCIN (test code = VANCO) 18.3 mcg/mL IMMUNOELECTROPHORESIS [id number] 14:11:00 Test Item Value Reference Range Interpretation Comments IMMUNOGLOBULIN A (test 598 mg/dL 90-386 A code = ADDI) IMMUNOGLOBULIN G (test 2452 mg/dL 603-1613 A code = IMMG) IMMUNOGLOBULIN M (test 54 mg/dL 20-172 Perfo rmed At: DA code = IMMM) [facility] [place] [address] [address] [place], [place] [id number] sharon GREGORIO MD Ph:[phone] rform ed At: [facility] [place], [place] [id number] Savage Castro MD Ph:[phone] IMMUNOFIXATION SERUM Note: See_Comment Polyclo nal increase (test code = IMMFIXS) detect ed in one or moreimmunoglobu tiarra. [Automated mess age] The system [employer]-collect[employer] generated this result transmit carlos reference range : (). The reference r gelacio was not used to interpret this result as normal/abnormal . LACTIC DEHYDROGENASE(LDH)2022-09-11 14:11:00 Test Item Value Reference Range Interpretation Comments LACTIC DEHYDROGENASE(LDH) (test 193 IUnits/L 87-241 N code = LDH) TOTAL IRON BINDING [id number] 14:11:00 Test Item Value Reference Range Interpretation Comments SERUM IRON (test code = IRON) 10 mcg/dL 35-150 L TOTAL IRON BINDING CAPACITY (test 138 mcg/dL 260-445 L code = TIBC) UIBC (test code = UIBC) 128 mcg/dL IRON SATURATION (test code = 7.2 % 14-34 L FESAT) [id number] 14:11:00 Test Item Value Reference Range Interpretation Comments FERRITIN (test code = COLEMAN) 700.5 ng/mL 23.9-336.2 H GLUCOSE [id number] 11:40:00 Test Item Value Reference Range Interpretation Comments GLUCOSE BEDSIDE (test 109 MG/DL 70-110 N [facility] med by certified code = GLUBED) dredge operator at [facility] CBC W/AUTO [id number] 09:23:00 Test Item Value Reference Range Interpretation Comments WHITE BLOOD CELL (test code = 7.9 x10 3/uL 4.5-11.0 N WBC) RED BLOOD CELL (test code = 2.94 x10 6/uL 4.00-5.60 L RBC) HEMOGLOBIN (test code = HGB) 8.3 g/dL 12.5-16.9 L HEMATOCRIT (test code = HCT) 25.8 % 37.5-50.7 L MEAN CELL VOLUME (test code = 87.8 fL 81.0-99.0 N MCV) MEAN CELL HGB (test code = MCH) 28.2 pg 27.0-33.0 N MEAN CELL HGB CONCETRATION 32.2 g/dL 33.0-37.0 L (test code = MCHC) RED CELL DISTRIBUTION WIDTH CV 13.7 % 11.5-14.5 N (test code = RDW) RED CELL DISTRIBUTION WIDTH SD 44.0 fL 37.0-54.0 N (test code = RDW-SD) PLATELET COUNT (test code = 269 x10 3/uL 150-400 N PLT) MEAN PLATELET VOLUME (test code 9.8 fL 7.0-9.0 H = MPV) NEUTROPHIL % (test code = NT%) 67.9 % 56.0-77.0 N IMMATURE GRANULOCYTE % (test 0.8 % 0.0-2.0 N code = IG%) LYMPHOCYTE % (test code = LY%) 16.1 % 14.0-32.0 N MONOCYTE % (test code = MO%) 9.1 % 4.8-9.0 H EOSINOPHIL % (test code = EO%) 5.6 % 0.3-3.7 H BASOPHIL % (test code = BA%) 0.5 % 0.0-2.0 N NUCLEATED RBC % (test code = 0.0 % 0-0 N NRBC%) NEUTROPHIL # (test code = NT#) 5.35 x10 3/uL 2.0-7.6 N IMMATURE GRANULOCYTE # (test 0.06 x10 3/uL 0.00-0.03 H code = IG#) LYMPHOCYTE # (test code = LY#) 1.27 x10 3/uL 1.0-3.8 N MONOCYTE # (test code = MO#) 0.72 x10 3/uL 0.1-0.8 N EOSINOPHIL # (test code = EO#) 0.44 x10 3/uL 0.0-0.2 H BASOPHIL # (test code = BA#) 0.04 x10 3/uL 0.0-0.2 N NUCLEATED RBC # (test code = 0.00 x10 3/uL 0.0-0.1 N NRBC#) MANUAL DIFF REQUIRED (test code NO = MDIFF) BASIC METABOLIC [id number] 07:56:00 Test Item Value Reference Range Interpretation Comments SODIUM (test code = 134 mEq/L 134-147 N NA) POTASSIUM (test code 4.3 mEq/L 3.4-5.0 N = K) CHLORIDE (test code 105 mEq/L 100-108 N = CL) CARBON DIOXIDE (test 22 mEq/l 21-33 N code = CO2) ANION GAP (test code 12 0-20 N = GAP) GLUCOSE (test code = 109 mg/dL 70-110 GLU) BLOOD UREA NITROGEN 26 mg/dL 7-18 H (test code = BUN) GLOMERULAR 38.0 90-95 L The Glomerular FILTRATION RATE Filtration R ate is a (test code = GFR) calculated parameterbased on serum Creatinine, pat ient age and sex. GFR va luesless than 60 mL/min/ 1.73 square meters a re indicative ofCh ronic Kidney Disease. Values less than 15 mL/min/1.73squa re meters indicate Kidney failure. The calculation forGFR is based on the CKD-EPI (2020) calculat ion. This formulais race indifferent and is the recommended for rodrigo for GFRby the [facility] on for Adults.The GFR will not calculate if th e sex is unknown or if thepatient's ag e is <18 years. CREATININE (test 2.0 mg/dL 0.6-1.3 H code = CREAT) CALCIUM (test code = 8.3 mg/dL 8.0-10.5 N CA) [id number] 07:56:00 Test Item Value Reference Range Interpretation Comments PHOSPHOROUS (test code = PHOS) 4.7 MG/DL 2.5-4.9 N [id number] 07:56:00 Test Item Value Reference Range Interpretation Comments MAGNESIUM (test code = MAG) 1.90 mg/dL 1.80-2.40 N GLUCOSE [id number] 05:55:00 Test Item Value Reference Range Interpretation Comments GLUCOSE BEDSIDE (test 127 MG/DL 70-110 H Perfor med by certified code = GLUBED) dredge operator at [facility] GLUCOSE [id number] 19:45:00 Test Item Value Reference Range Interpretation Comments GLUCOSE BEDSIDE (test 97 MG/DL 70-110 N Perfor med by certified code = GLUBED) dredge operator at [facility] GLUCOSE [id number] 17:28:00 Test Item Value Reference Range Interpretation Comments GLUCOSE BEDSIDE (test 75 MG/DL 70-110 N Perfor med by certified code = GLUBED) dredge operator at [facility] GLUCOSE [id number] 16:37:00 Test Item Value Reference Range Interpretation Comments GLUCOSE BEDSIDE (test 58 MG/DL 70-110 L Perfor med by certified code = GLUBED) dredge operator at [facility] [id number] 15:14:00 Test Item Value Reference Range Interpretation Comments VANCOMYCIN (test code = VANCO) 15.7 mcg/mL [id number] 15:13:00 Test Item Value Reference Range Interpretation Comments HAPTOGLOBIN (test code 292 mg/dL 29-370 Perfo rmed At: DA = HAPT) [facility] [address] [place], [place] [id number] h DARLINE ZEPEDA [phone] SHORT SAMPLE - NOTIFIED NURSE LISA FOR RED TUBE. G.LAB.KAF04/ 1852GLUCOSE [id number] 10:19:00 Test Item Value Reference Range Interpretation Comments GLUCOSE BEDSIDE (test 213 MG/DL 70-110 H Perfor med by certified code = GLUBED) dredge operator at [facility] BASIC METABOLIC [id number] 08:33:00 Test Item Value Reference Range Interpretation Comments SODIUM (test code = 135 mEq/L 134-147 N NA) POTASSIUM (test code 4.2 mEq/L 3.4-5.0 N = K) CHLORIDE (test code 107 mEq/L 100-108 N = CL) CARBON DIOXIDE (test 21 mEq/l 21-33 N code = CO2) ANION GAP (test code 11 0-20 N = GAP) GLUCOSE (test code = 156 mg/dL 70-110 H GLU) BLOOD UREA NITROGEN 25 mg/dL 7-18 H (test code = BUN) GLOMERULAR 40.4 90-95 L The Glomerular FILTRATION RATE Filtration R ate is a (test code = GFR) calculated parameterbased on serum Creatinine, pat ient age and sex. GFR va luesless than 60 mL/min/ 1.73 square meters a re indicative ofCh ronic Kidney Disease. Values less than 15 mL/min/1.73squa re meters indicate Kidney failure. The calculation forGFR is based on the CKD-EPI (2020) calculat ion. This formulais race indifferent and is the recommended for rodrigo for GFRby the Natio nal Kidney Foundati on for Adults.The GFR will not calculate if th e sex is unknown or if thepatient's ag e is <18 years. CREATININE (test 1.9 mg/dL 0.6-1.3 H code = CREAT) CALCIUM (test code = 8.3 mg/dL 8.0-10.5 N CA) [id number] 08:33:00 Test Item Value Reference Range Interpretation Comments PHOSPHOROUS (test code = PHOS) 4.6 MG/DL 2.5-4.9 N [id number] 08:33:00 Test Item Value Reference Range Interpretation Comments MAGNESIUM (test code = MAG) 1.89 mg/dL 1.80-2.40 N CBC W/AUTO [id number] 08:16:00 Test Item Value Reference Range Interpretation Comments WHITE BLOOD CELL (test code = 8.6 x10 3/uL 4.5-11.0 N WBC) RED BLOOD CELL (test code = 3.08 x10 6/uL 4.00-5.60 L RBC) HEMOGLOBIN (test code = HGB) 8.6 g/dL 12.5-16.9 L HEMATOCRIT (test code = HCT) 26.7 % 37.5-50.7 L MEAN CELL VOLUME (test code = 86.7 fL 81.0-99.0 N MCV) MEAN CELL HGB (test code = MCH) 27.9 pg 27.0-33.0 N MEAN CELL HGB CONCETRATION 32.2 g/dL 33.0-37.0 L (test code = MCHC) RED CELL DISTRIBUTION WIDTH CV 13.8 % 11.5-14.5 N (test code = RDW) RED CELL DISTRIBUTION WIDTH SD 43.3 fL 37.0-54.0 N (test code = RDW-SD) PLATELET COUNT (test code = 265 x10 3/uL 150-400 N PLT) MEAN PLATELET VOLUME (test code 9.6 fL 7.0-9.0 H = MPV) NEUTROPHIL % (test code = NT%) 69.4 % 56.0-77.0 N IMMATURE GRANULOCYTE % (test 0.7 % 0.0-2.0 N code = IG%) LYMPHOCYTE % (test code = LY%) 15.5 % 14.0-32.0 N MONOCYTE % (test code = MO%) 8.5 % 4.8-9.0 N EOSINOPHIL % (test code = EO%) 5.5 % 0.3-3.7 H BASOPHIL % (test code = BA%) 0.4 % 0.0-2.0 N NUCLEATED RBC % (test code = 0.0 % 0-0 N NRBC%) NEUTROPHIL # (test code = NT#) 5.94 x10 3/uL 2.0-7.6 N IMMATURE GRANULOCYTE # (test 0.06 x10 3/uL 0.00-0.03 H code = IG#) LYMPHOCYTE # (test code = LY#) 1.33 x10 3/uL 1.0-3.8 N MONOCYTE # (test code = MO#) 0.73 x10 3/uL 0.1-0.8 N EOSINOPHIL # (test code = EO#) 0.47 x10 3/uL 0.0-0.2 H BASOPHIL # (test code = BA#) 0.03 x10 3/uL 0.0-0.2 N NUCLEATED RBC # (test code = 0.00 x10 3/uL 0.0-0.1 N NRBC#) MANUAL DIFF REQUIRED (test code NO = MDIFF) GLUCOSE [id number] 06:02:00 Test Item Value Reference Range Interpretation Comments GLUCOSE BEDSIDE (test 154 MG/DL 70-110 H Perfor med by certified code = GLUBED) dredge operator at [facility] - US RETROPERITONEAL [id number] 00:00:00 [facility] JACE PORTVILLEName: KARMA ROWLAND : 1965 Sex: M Name: KARMA ROWLAND [facility] [place] : 1965 Age/S: 56 / M [address] [place] [address] Blvd Unit #: [id number] Loc: [place] [address] Phys: Barrera Ramírez MD Acct: [id number] Dis Date: Status: ADM INPHONE #: [phone] Exam Date: 09/10/2022 1311 FAX #: [phone] Reason: ERIKA EXAMS: CPT CODE: [id number] US RETROPERITONEAL COM [id number] PROCEDURE INFORMATION: Exam: US Retroperitoneal; Complete; Kidneys and Bladder Exam date and time: 09/10/2022 12:25 PM Age: 56 years old Clinical indication: Condition or disease; Kidney or ureter condition; Acute renal insufficiency; Additional info: Erika TECHNIQUE:Imaging protocol: Real-time ultrasound of the retroperitoneum with image documentation. Complete exam focused on the kidneys and bladder. COMPARISON: CT ABD PELVIS W/CONT 08/18/2022 3:36 AM FINDINGS: Right kidney: The right kidney measures 11.5 cm. No mass, calculi or hydronephrosis. Left kidney: The left kidney measures 11.2 cm. No mass, calculi or hydronephrosis. Urinary bladder: A Camarena catheter ispresent within an empty bladder, precluding evaluation. IMPRESSION: No acute findings. at 1503 Reported and signed by: Bishop Mares M.D. CC: Barrera Ramírez MD; Mj Vences Technologist: Anisa Garnett RDMS(Vielka)(BR) Trnscb Date/Time: 09/10/2022 (1503) TipTDO Orig Print D/T: S: 09/10/2022 (9511) Probe: PAGE 1 Signed Rep ortGLUCOSE [id number] 19:36:00 Test Item Value Reference Range Interpretation Comments GLUCOSE BEDSIDE (test 102 MG/DL 70-110 N Perfor med by certified code = GLUBED) dredge operator at [facility] GLUCOSE [id number] 16:18:00 Test Item Value Reference Range Interpretation Comments GLUCOSE BEDSIDE (test 109 MG/DL 70-110 N Perfor med by certified code = GLUBED) dredge operator at [facility] GLUCOSE [id number] 16:18:00 Test Item Value Reference Range Interpretation Comments GLUCOSE BEDSIDE (test 30 MG/DL 70-110 L Perfor med by certified code = GLUBED) dredge operator at [facility] [id number] 14:38:00 Test Item Value Reference Range Interpretation Comments VANCOMYCIN (test code = VANCO) 15.4 mcg/mL [id number] 13:34:00 Test Item Value Reference Range Interpretation Comments SURGICAL (test code = SR) R UN DATE: 09/09/22 [place] - LAB PAGE 1 RUN TIME: 1335 Specimen Inquiry RUN USER: INTERFACE P ATIENT: KARMA ROWLAND LOC: [address] U #: [id number] AGE/SX: 56/M [place] [facility] [place]REG DR: Mj Vences MD : 61 BED: 1 DIS: STATUS: ADM IN TLOC: SPEC #: [id number] RECD: 09/08/22 STATUS: JC REShanell #: [id number] JULIENNE: 09/08/22 DR: Kassie Avitia MD ENTERED: 09/08/22 SP TYPE: SURGICAL OTHR DR: No Primary or Family Physician Wilbert Ramires MD, Mirza Z MD Blackburn, James PA Blackburn, Jeannie A NP Dar, Bilal MD Kaul,Braxton Lawrence,Aleah Jeffrey MD,Gianni Pedersen,Liam X DPMORDERED: [id number], ANATOMIC SPEC COPIES TO: No Primary or Family Physician Wilbert Ramires MD [address] [facility] [address] [place], [place] [id number] [place] [address] [facility] [address] [place], [place] [phone] Guero Candelaria [address] [facility] [address] [place], [place] [id number] Mirella Candelaria NP [address] [place], [place] [address] [place] [address] Kingsley Ng MD 2984 [facility] [address] [place], [place] [phone] CONTINUED ON NEXT PAGE R UN DATE: 09/09/22 [place] - LAB PAGE 2 RUN TIME: 1335 Specimen Inquiry RUN USER: INTERFACE S PEC #: [id number] PATIENT: KARMA ROWLAND #[id number] (Continued) COPIES TO: (Continued) Kassie Avitia MD [address], [address] [place] [address] Braxton Chapin MD 0 [facility] [address] [place] [address] Roxie Lawrence [address] [place] [address] [place] [address] Aleah Trinidad MD [facility] [facility] [address] [place] [address] OTHER PHONE [phone] (CELL) Gianni Parham MD [address] [facility], [address] [place] [phone] Liam Pedersen DPM 1103 [facility], [address] [place] [phone] [email or web address] PROCEDURES: [id number] (09/08/22-1406) TISSUES: A. RECTUM BIOPSY CLINICAL HISTORY GASTRITIS, GASTRIC POLYP FINAL DIAGNOSIS Rectum, polypectomy: Tubular adenoma. CONTINUED ON NEXT PAGE R UN DATE: 09/09/22 [place] - LAB PAGE 3 RUN TIME: 1335 Specimen Inquiry RUN USER: INTERFACE S PEC #: [id number] PATIENT: KARMA ROWLAND #[id number] (Continued) GROSS DESCRIPTION Received in formalin and designated rectal polyp biopsy is 1 segment of pink-ramirez tissuemeasuring 0.2 cm. Submitted in 1 cassette. Technical component performed at [facility],[address] [place] [address], [place] [address] Unless gross only, the diagnosis is based upon microscopic examination.Immunohistochemistr y: This test was developed and its performance characteristicsdetermined by this laboratory. It has not been approved nor does it need approvalby the [place] FDA. Appropriate positive and negative controls are reviewed and judgedto be acceptable. This laboratory is certified under the Clinical Laboratory ImprovementAmendments (CLIA-88) as qualified to perform high complexity clinical laboratory testing. MICROSCOPIC DESCRIPTION Sections of the rectal polyp reveal a tubular adenoma. CLINICAL INFORMATION ANEMIA ----- Signed SIGNATURE ON FILE Wilfrdi Patino 09/09/22 1600 END OF REPORT GLUCOSE [id number] 11:16:00 Test Item Value Reference Range Interpretation Comments GLUCOSE BEDSIDE (test 90 MG/DL 70-110 N [facility] med by certified code = GLUBED) dredge operator at [facility] BASIC METABOLIC [id number] 08:03:00 Test Item Value Reference Range Interpretation Comments SODIUM (test code = 136 mEq/L 134-147 N NA) POTASSIUM (test code 4.2 mEq/L 3.4-5.0 N = K) CHLORIDE (test code 107 mEq/L 100-108 N = CL) CARBON DIOXIDE (test 22 mEq/l 21-33 N code = CO2) ANION GAP (test code 11 0-20 N = GAP) GLUCOSE (test code = 125 mg/dL 70-110 H GLU) BLOOD UREA NITROGEN 23 mg/dL 7-18 H (test code = BUN) GLOMERULAR 53.6 90-95 L The Glomerular FILTRATION RATE Filtration R ate is a (test code = GFR) calculated parameterbased on serum Creatinine, pat ient age and sex. GFR va luesless than 60 mL/min/ 1.73 square meters a re indicative ofCh ronic Kidney Disease. Values less than 15 mL/min/1.73squa re meters indicate Kidney failure. The calculation forGFR is based on the CKD-EPI (2020) calculat ion. This formulais race indifferent and is the recommended for rodrigo for GFRby the [facility] Kidney Foundati on for Adults.The GFR will not calculate if th e sex is unknown or if thepatient's ag e is <18 years. CREATININE (test 1.5 mg/dL 0.6-1.3 H code = CREAT) CALCIUM (test code = 8.2 mg/dL 8.0-10.5 N CA) [id number] 08:03:00 Test Item Value Reference Range Interpretation Comments PHOSPHOROUS (test code = PHOS) 4.0 MG/DL 2.5-4.9 N [id number] 08:03:00 Test Item Value Reference Range Interpretation Comments MAGNESIUM (test code = MAG) 1.89 mg/dL 1.80-2.40 CBC W/AUTO [id number] 07:03:00 Test Item Value Reference Range Interpretation Comments WHITE BLOOD CELL (test code = 9.2 x10 3/uL 4.5-11.0 N WBC) RED BLOOD CELL (test code = 3.01 x10 6/uL 4.00-5.60 L RBC) HEMOGLOBIN (test code = HGB) 8.5 g/dL 12.5-16.9 L HEMATOCRIT (test code = HCT) 25.9 % 37.5-50.7 L MEAN CELL VOLUME (test code = 86.0 fL 81.0-99.0 N MCV) MEAN CELL HGB (test code = MCH) 28.2 pg 27.0-33.0 N MEAN CELL HGB CONCETRATION 32.8 g/dL 33.0-37.0 L (test code = MCHC) RED CELL DISTRIBUTION WIDTH CV 13.8 % 11.5-14.5 N (test code = RDW) RED CELL DISTRIBUTION WIDTH SD 43.9 fL 37.0-54.0 N (test code = RDW-SD) PLATELET COUNT (test code = 263 x10 3/uL 150-400 N PLT) MEAN PLATELET VOLUME (test code 9.7 fL 7.0-9.0 H = MPV) NEUTROPHIL % (test code = NT%) 69.1 % 56.0-77.0 N IMMATURE GRANULOCYTE % (test 0.5 % 0.0-2.0 N code = IG%) LYMPHOCYTE % (test code = LY%) 16.1 % 14.0-32.0 N MONOCYTE % (test code = MO%) 9.2 % 4.8-9.0 H EOSINOPHIL % (test code = EO%) 4.7 % 0.3-3.7 H BASOPHIL % (test code = BA%) 0.4 % 0.0-2.0 N NUCLEATED RBC % (test code = 0.0 % 0-0 N NRBC%) NEUTROPHIL # (test code = NT#) 6.38 x10 3/uL 2.0-7.6 N IMMATURE GRANULOCYTE # (test 0.05 x10 3/uL 0.00-0.03 H code = IG#) LYMPHOCYTE # (test code = LY#) 1.49 x10 3/uL 1.0-3.8 N MONOCYTE # (test code = MO#) 0.85 x10 3/uL 0.1-0.8 H EOSINOPHIL # (test code = EO#) 0.43 x10 3/uL 0.0-0.2 H BASOPHIL # (test code = BA#) 0.04 x10 3/uL 0.0-0.2 N NUCLEATED RBC # (test code = 0.00 x10 3/uL 0.0-0.1 N NRBC#) MANUAL DIFF REQUIRED (test code NO = MDIFF) GLUCOSE [id number] 05:56:00 Test Item Value Reference Range Interpretation Comments GLUCOSE BEDSIDE (test 128 MG/DL 70-110 H Perfor med by certified code = GLUBED) dredge operator at [facility] GLUCOSE [id number] 20:07:00 Test Item Value Reference Range Interpretation Comments GLUCOSE BEDSIDE (test 106 MG/DL 70-110 N Perfor med by certified code = GLUBED) dredge operator at [facility] RETIC COUNT (AUTOMATED)2022-09-08 19:16:00 Test Item Value Reference Range Interpretation Comments RETIC COUNT (AUTOMATED) (test code = 1.3 % 0.3-2.3 N RETICA) GLUCOSE [id number] 16:29:00 Test Item Value Reference Range Interpretation Comments GLUCOSE BEDSIDE (test 120 MG/DL 70-110 H Perfor med by certified code = GLUBED) dredge operator at [facility] GLUCOSE [id number] 13:31:00 Test Item Value Reference Range Interpretation Comments GLUCOSE BEDSIDE (test 101 MG/DL 70-110 N Perfor med by certified code = GLUBED) dredge operator at [facility] [id number] 11:14:00 Test Item Value Reference Range Interpretation Comments VANCOMYCIN (test code = VANCO) 15.8 mcg/mL COMMENTS: RN: vanc dose by level, draw vanc level on timeGLUCOSE BEDSIDE 2022-09-08 10:56:00 Test Item Value Reference Range Interpretation Comments GLUCOSE BEDSIDE (test 99 MG/DL 70-110 N Perfor med by certified code = GLUBED) dredge operator at [facility] BASIC METABOLIC [id number] 09:21:00 Test Item Value Reference Range Interpretation Comments SODIUM (test code = 135 mEq/L 134-147 N NA) POTASSIUM (test code 4.6 mEq/L 3.4-5.0 N = K) CHLORIDE (test code 107 mEq/L 100-108 N = CL) CARBON DIOXIDE (test 22 mEq/l 21-33 N code = CO2) ANION GAP (test code 10 0-20 N = GAP) GLUCOSE (test code = 100 mg/dL 70-110 N GLU) BLOOD UREA NITROGEN 22 mg/dL 7-18 H (test code = BUN) GLOMERULAR 58.3 90-95 L The Glomerular FILTRATION RATE Filtration R ate is a (test code = GFR) calculated parameterbased on serum Creatinine, pat ient age and sex. GFR va luesless than 60 mL/min/ 1.73 square meters a re indicative ofCh ronic Kidney Disease. Values less than 15 mL/min/1.73squa re meters indicate Kidney failure. The calculation forGFR is based on the CKD-EPI (2020) calculat ion. This formulais race indifferent and is the recommended for rodrigo for GFRby the Natio nal Kidney Foundati on for Adults.The GFR will not calculate if th e sex is unknown or if thepatient's ag e is <18 years. CREATININE (test 1.4 mg/dL 0.6-1.3 H code = CREAT) CALCIUM (test code = 8.1 mg/dL 8.0-10.5 N CA) [id number] 09:21:00 Test Item Value Reference Range Interpretation Comments ALBUMIN (test code = ALB) 1.30 g/dL 3.4-5.0 L CREATINE KINASE (CK)2022-09-08 09:21:00 Test Item Value Reference Range Interpretation Comments CREATINE KINASE (CK) (test code = 22 Units/L 46-171 L CK) [id number] 09:21:00 Test Item Value Reference Range Interpretation Comments MAGNESIUM (test code = MAG) 1.58 mg/dL 1.80-2.40 L [id number] 09:21:00 Test Item Value Reference Range Interpretation Comments PREALBUMIN (test code = PREALB) < 5.0 mg/dL 16.0-40.0 L CBC W/AUTO [id number] 09:02:00 Test Item Value Reference Range Interpretation Comments WHITE BLOOD CELL (test code = 9.1 x10 3/uL 4.5-11.0 N WBC) RED BLOOD CELL (test code = 3.05 x10 6/uL 4.00-5.60 L RBC) HEMOGLOBIN (test code = HGB) 8.5 g/dL 12.5-16.9 L HEMATOCRIT (test code = HCT) 26.2 % 37.5-50.7 L MEAN CELL VOLUME (test code = 85.9 fL 81.0-99.0 N MCV) MEAN CELL HGB (test code = MCH) 27.9 pg 27.0-33.0 N MEAN CELL HGB CONCETRATION 32.4 g/dL 33.0-37.0 L (test code = MCHC) RED CELL DISTRIBUTION WIDTH CV 13.5 % 11.5-14.5 N (test code = RDW) RED CELL DISTRIBUTION WIDTH SD 42.7 fL 37.0-54.0 N (test code = RDW-SD) PLATELET COUNT (test code = 231 x10 3/uL 150-400 N PLT) MEAN PLATELET VOLUME (test code 9.6 fL 7.0-9.0 H = MPV) NEUTROPHIL % (test code = NT%) 73.3 % 56.0-77.0 N IMMATURE GRANULOCYTE % (test 0.7 % 0.0-2.0 N code = IG%) LYMPHOCYTE % (test code = LY%) 13.7 % 14.0-32.0 L MONOCYTE % (test code = MO%) 7.2 % 4.8-9.0 N EOSINOPHIL % (test code = EO%) 4.8 % 0.3-3.7 H BASOPHIL % (test code = BA%) 0.3 % 0.0-2.0 N NUCLEATED RBC % (test code = 0.0 % 0-0 N NRBC%) NEUTROPHIL # (test code = NT#) 6.64 x10 3/uL 2.0-7.6 N IMMATURE GRANULOCYTE # (test 0.06 x10 3/uL 0.00-0.03 H code = IG#) LYMPHOCYTE # (test code = LY#) 1.24 x10 3/uL 1.0-3.8 N MONOCYTE # (test code = MO#) 0.65 x10 3/uL 0.1-0.8 N EOSINOPHIL # (test code = EO#) 0.43 x10 3/uL 0.0-0.2 H BASOPHIL # (test code = BA#) 0.03 x10 3/uL 0.0-0.2 N NUCLEATED RBC # (test code = 0.00 x10 3/uL 0.0-0.1 N NRBC#) MANUAL DIFF REQUIRED (test code NO = MDIFF) GLUCOSE [id number] 06:36:00 Test Item Value Reference Range Interpretation Comments GLUCOSE BEDSIDE (test 101 MG/DL 70-110 N Perfor med by certified code = GLUBED) dredge operator at [facility] GLUCOSE [id number] 23:02:00 Test Item Value Reference Range Interpretation Comments GLUCOSE BEDSIDE (test 135 MG/DL 70-110 H Perfor med by certified code = GLUBED) dredge operator at [facility] GLUCOSE [id number] 21:22:00 Test Item Value Reference Range Interpretation Comments GLUCOSE BEDSIDE (test 127 MG/DL 70-110 H Perfor med by certified code = GLUBED) dredge operator at [facility] GLUCOSE [id number] 16:06:00 Test Item Value Reference Range Interpretation Comments GLUCOSE BEDSIDE (test 112 MG/DL 70-110 H Perfor med by certified code = GLUBED) dredge operator at [facility] GLUCOSE [id number] 11:51:00 Test Item Value Reference Range Interpretation Comments GLUCOSE BEDSIDE (test 51 MG/DL 70-110 L Perfor med by certified code = GLUBED) dredge operator at [facility] GLUCOSE [id number] 11:44:00 Test Item Value Reference Range Interpretation Comments GLUCOSE BEDSIDE (test 42 MG/DL 70-110 L Perfor med by certified code = GLUBED) dredge operator at [facility] [id number] 08:33:00 Test Item Value Reference Range Interpretation Comments VANCOMYCIN (test code = VANCO) 14.7 mcg/mL HGB [id number] 07:59:00 Test Item Value Reference Range Interpretation Comments HEMOGLOBIN (test code = HGB) 8.4 g/dL 12.5-16.9 L HEMATOCRIT (test code = HCT) 26.2 % 37.5-50.7 L [id number] 07:51:00 Test Item Value Reference Range Interpretation Comments CREATININE (test code = CREAT) 1.4 mg/dL 0.6-1.3 H GLUCOSE [id number] 06:34:00 Test Item Value Reference Range Interpretation Comments GLUCOSE BEDSIDE (test 135 MG/DL 70-110 H Perfor med by certified code = GLUBED) dredge operator at [facility] GLUCOSE [id number] 22:38:00 Test Item Value Reference Range Interpretation Comments GLUCOSE BEDSIDE (test 192 MG/DL 70-110 H Perfor med by certified code = GLUBED) dredge operator at [facility] GLUCOSE [id number] 21:31:00 Test Item Value Reference Range Interpretation Comments GLUCOSE BEDSIDE (test 211 MG/DL 70-110 H Perfor med by certified code = GLUBED) dredge operator at [facility] VANCOMYCIN [id number] 16:23:00 Test Item Value Reference Range Interpretation Comments VANCOMYCIN TROUGH 18.9 mcg/mL 10.0-20.0 N 10-15 mcg/ mL - (test code = VANCT) Cellulit is, Urinary Tract Infection . 15-20 mcg/mL - Bacteremia, Infective Endocarditis, Meningitis, Osteomyelitis, Pneumonia, Maru re Skin/Soft-Tissu e Infection, Spin al Abscess. GLUCOSE [id number] 16:02:00 Test Item Value Reference Range Interpretation Comments GLUCOSE BEDSIDE (test 119 MG/DL 70-110 H Perfor med by certified code = GLUBED) dredge operator at [facility] GLUCOSE [id number] 11:03:00 Test Item Value Reference Range Interpretation Comments GLUCOSE BEDSIDE (test 92 MG/DL 70-110 N Perfor med by certified code = GLUBED) dredge operator at [facility] HGB [id number] 08:55:00 Test Item Value Reference Range Interpretation Comments HEMOGLOBIN (test code = HGB) 8.6 g/dL 12.5-16.9 L HEMATOCRIT (test code = HCT) 26.1 % 37.5-50.7 L [id number] 07:45:00 Test Item Value Reference Range Interpretation Comments CREATININE (test code = CREAT) 1.4 mg/dL 0.6-1.3 H GLUCOSE [id number] 06:18:00 Test Item Value Reference Range Interpretation Comments GLUCOSE BEDSIDE (test 124 MG/DL 70-110 H Perfor med by certified code = GLUBED) dredge operator at [facility] GLUCOSE [id number] 19:36:00 Test Item Value Reference Range Interpretation Comments GLUCOSE BEDSIDE (test 117 MG/DL 70-110 H Perfor med by certified code = GLUBED) dredge operator at [facility] GLUCOSE [id number] 16:51:00 Test Item Value Reference Range Interpretation Comments GLUCOSE BEDSIDE (test 123 MG/DL 70-110 H Perfor med by certified code = GLUBED) dredge operator at [facility] GLUCOSE [id number] 12:01:00 Test Item Value Reference Range Interpretation Comments GLUCOSE BEDSIDE (test 74 MG/DL 70-110 N Perfor med by certified code = GLUBED) dredge operator at [facility] HGB [id number] 07:54:00 Test Item Value Reference Range Interpretation Comments HEMOGLOBIN (test code = HGB) 7.1 g/dL 12.5-16.9 L HEMATOCRIT (test code = HCT) 22.7 % 37.5-50.7 L BASIC METABOLIC [id number] 07:40:00 Test Item Value Reference Range Interpretation Comments SODIUM (test code = 134 mEq/L 134-147 N NA) POTASSIUM (test code 5.0 mEq/L 3.4-5.0 N = K) CHLORIDE (test code 109 mEq/L 100-108 H = CL) CARBON DIOXIDE (test 21 mEq/l 21-33 N code = CO2) ANION GAP (test code 9 0-20 N = GAP) GLUCOSE (test code = 75 mg/dL 70-110 N GLU) BLOOD UREA NITROGEN 24 mg/dL 7-18 H (test code = BUN) GLOMERULAR 63.7 90-95 L The Glomerular FILTRATION RATE Filtration R ate is a (test code = GFR) calculated parameterbased on serum Creatinine, pat ient age and sex. GFR va luesless than 60 mL/min/ 1.73 square meters a re indicative ofCh ronic Kidney Disease. Values less than 15 mL/min/1.73squa re meters indicate Kidney failure. The calculation forGFR is based on the CKD-EPI (2020) calculat ion. This formulais race indifferent and is the recommended for rodrigo for GFRby the Natio n[facility] Kidney Foundati on for Adults.The GFR will not calculate if th e sex is unknown or if thepatient's ag e is <18 years. CREATININE (test 1.3 mg/dL 0.6-1.3 N code = CREAT) CALCIUM (test code = 7.9 mg/dL 8.0-10.5 L CA) - XR CHEST 1 [id number] 00:00:00 [facility] [place] ROW[place] : 1965 Sex: M FAX: M[facility] [phone] [place]: St: [facility] FAX: Rohit Benitez NP [phone] ------- Name: KARMA ROWLAND [facility] : 1965 Age/S: 56/M [address] [place] [address] Blvd Unit #: [id number] Loc: G.537 [place] [address] Phys: Rohit Benitez CLAY MILLER Acct: [id number] Dis Date: Status: ADM IN PHONE #: [phone] Exam Date: 09/05/2022 1436 FAX #: [phone] Reason: sob EXAMS: CPT CODE: [id number] XR CHEST 1 [id number] PROCEDURE INFORMATION: Exam: XR Chest Exam date and time: 09/05/2022 2:30 PM Age: 56 years old Clinical indication: Shortness of breath; Additional info: SOB TECHNIQUE: Imaging protocol: Radiologic exam of the chest. Views: 1 view. COMPARISON: DX XR CHEST 2 V 08/18/2022 1:58 AM FINDINGS: Lungs: There are minimal bibasilar pulmonary opacities, right greater than left. A right-sided PICC line is present with tip in the region of the distal SVC. Pleural spaces: Unremarkable. No pleural effusion. Nopneumothorax. Heart/Mediastinum: Heart size is within normal limits. Vasculature is unremarkable. Bones/joints: Unremarkable. IMPRESSION: Minimal bibasilar pulmonary opacities at 1515 Reported and signed by: Bishop Mares M.D. CC: Mj Vences; Rohit Benitez NP Technologist: Jenaro Carrillo Date/Time/By: 09/05/2022 (1045) : By: Yared Orig Print D/T: S: 09/05/2022 (4939) PAGE 1 Signed Report- [facility] NAN/[id number] 00:00:00 [facility] : 1965 Sex: M Name: KARMA ROWLAND [facility] : 1965 Age/S: 56 / M [address] [place] [address] Bl Unit #: [id number] Loc: [place] [address] Phys: Mj Vences MD Acct: [id number] Dis Date: Status: ADM IN PHONE #: [phone] Exam Date: 09/05/2022 1146 FAX #: [phone] Reason: R/0 DVT EXAMS: CPT CODE: [id number] DUP VEIN UNI/LTD 99831 PROCEDURE INFORMATION: Exam: US Duplex Left Lower ExtremityVeins, Limited Exam date and time: 09/05/2022 11:22 AM Age: 56 years old Clinical indication: Edema, localized; Lower extremity, left; Additional info: R/0 dvt TECHNIQUE: Imaging protocol: Real-time duplex ultrasound of the left extremity with 2-D fierro scale, color Doppler flow and spectral waveform analysis including responses to compression and other maneuvers (when performed) with image documentation. Limited exam focused on the left lower extremity veins. COMPARISON: US DUP VEIN UNI/LTD 38:40 AM FINDINGS: Left deep veins: Unremarkable. The common femoral, femoral, proximal profunda femoral and popliteal veins are patent without thrombus. Normal Doppler waveforms. Normal compressibilityand/or augmentation response. Left superficial veins: Unremarkable. Saphenofemoral junction is patent without thrombus. Soft tissues: Complex heterogeneous hypoechoic fluid collection in the left calf region measuring 8.4 x 2.8 x 2.5 cm; there is no internal vascularity or peripheral hyperemia. Heterogeneous superficial soft tissue may represent edema and/or cellulitis. IMPRESSION: 1. No evidence of deep vein thrombosis. 2. Complex heterogeneous hypoechoic fluid collection in the left calf region measuring 8.4 x 2.8 x 2.5 cm; there is no internal vascularity or peripheral hyperemia. May represent ahematoma. at 1332 Reported and signed by: Mert Ga M.D. CC: Mj Vences Technologist: Dave Gaines Trnscb Date/Time: 09/05/2022 (4029) [email or web address] Orig Print D/T: S: 09/05/2022 (1776) Probe: PAGE 1 Signed Report GLUCOSE [id number] 20:54:00 Test Item Value Reference Range Interpretation Comments GLUCOSE BEDSIDE (test 103 MG/DL 70-110 N Perfor med by certified code = GLUBED) dredge operator at [facility] VANCOMYCIN [id number] 17:00:00 Test Item Value Reference Range Interpretation Comments VANCOMYCIN TROUGH 12.8 mcg/mL 10.0-20.0 N 10-15 mcg/ mL - (test code = VANCT) Cellulit is, Urinary Tract Infection . 15-20 mcg/mL - Bacteremia, Infective Endocarditis, Meningitis, Osteomyelitis, Pneumonia, Maru re Skin/Soft-Tissu e Infection, Spin al Abscess. GLUCOSE [id number] 16:20:00 Test Item Value Reference Range Interpretation Comments GLUCOSE BEDSIDE (test 128 MG/DL 70-110 H Perfor med by certified code = GLUBED) dredge operator at [facility] HGB [id number] 11:42:00 Test Item Value Reference Range Interpretation Comments HEMOGLOBIN (test code = HGB) 7.7 g/dL 12.5-16.9 L HEMATOCRIT (test code = HCT) 23.7 % 37.5-50.7 L GLUCOSE [id number] 11:21:00 Test Item Value Reference Range Interpretation Comments GLUCOSE BEDSIDE (test 107 MG/DL 70-110 N Perfor med by certified code = GLUBED) dredge operator at [facility] GLUCOSE [id number] 08:28:00 Test Item Value Reference Range Interpretation Comments GLUCOSE BEDSIDE (test 99 MG/DL 70-110 N Perfor med by certified code = GLUBED) dredge operator at [facility] GLUCOSE [id number] 07:33:00 Test Item Value Reference Range Interpretation Comments GLUCOSE BEDSIDE (test 87 MG/DL 70-110 N Perfor med by certified code = GLUBED) dredge operator at [facility] HGB [id number] 07:27:00 Test Item Value Reference Range Interpretation Comments HEMOGLOBIN (test code = HGB) 6.8 g/dL 12.5-16.9 L HEMATOCRIT (test code = HCT) 21.2 % 37.5-50.7 L - XR ABDOMEN 1V (KUB)2022-09-04 00:00:00 [facility] : 1965 Sex: M FAX: Mj Sierra [phone] [place]: St: ADM Name: KARMA ROWLAND [facility] : 1965 Age/S: 56/M [address] [place] [address] Unit #: [id number] Loc: [address] [address] Phys: Mj Vences MD Acct: [id number] Dis Date: Status: ADM IN PHONE #: [phone] Exam Date: 09/04/2022 1648 FAX #: [phone] Reason: DISTENDED ABDOMEN EXAMS: CPT CODE: [id number] XR ABDOMEN 1V (KUB) [id number] PROCEDURE INFORMATION: Exam: XR Abdomen Exam date and time: 09/04/2022 4:48 PM Age: 56 years old Clinical indication: Abdominal distension. TECHNIQUE: Imaging protocol: Radiologic exam of the abdomen. Views: Frontal supine view of the abdomen. 1 View. COMPARISON: CT ABD PELVIS W/CONT 08/18/2022 3:36 AM FINDINGS: Gastrointestinal tract: There is a non-obstructive bowel gas pattern. There is no abnormal dilatation of bowel loops. There is no pneumatosis or mass effect. Bones/joints: Unremarkable. Soft tissues: No abnormal radiopaque densities. IMPRESSION: Benign appearance of the abdomen. Electronically Sig kenny by Jennifer Parra on 09/04/2022 at 1757 Reported and signed by: Roger Parra M.D. CC: Mj Vences Technologist: Josie Wyman Trnscrd Date/Time/By: 09/04/2022 (1756) : By: [email or web address] Orig Print D/T: S: 09/04/2022 (1756) PAGE 1 Signed ReportVANCOMYCIN [id number] 20:29:00 Test Item Value Reference Range Interpretation Comments VANCOMYCIN PEAK (test code = 27.4 MCG/ML 30-40 L VANCP) GLUCOSE [id number] 20:01:00 Test Item Value Reference Range Interpretation Comments GLUCOSE BEDSIDE (test 124 MG/DL 70-110 H Perfor med by certified code = GLUBED) dredge operator at [facility] GLUCOSE [id number] 16:44:00 Test Item Value Reference Range Interpretation Comments GLUCOSE BEDSIDE (test 135 MG/DL 70-110 H Perfor med by certified code = GLUBED) dredge operator at [facility] GLUCOSE [id number] 12:45:00 Test Item Value Reference Range Interpretation Comments GLUCOSE BEDSIDE (test 136 MG/DL 70-110 H Perfor med by certified code = GLUBED) dredge operator at [facility] GLUCOSE [id number] 12:05:00 Test Item Value Reference Range Interpretation Comments GLUCOSE BEDSIDE (test 50 MG/DL 70-110 L Perfor med by certified code = GLUBED) dredge operator at [facility] GLUCOSE [id number] 12:05:00 Test Item Value Reference Range Interpretation Comments GLUCOSE BEDSIDE (test 44 MG/DL 70-110 L Perfor med by certified code = GLUBED) dredge operator at [facility] CBC W/AUTO [id number] 07:41:00 Test Item Value Reference Range Interpretation Comments WHITE BLOOD CELL (test code = 8.7 x10 3/uL 4.5-11.0 N WBC) RED BLOOD CELL (test code = 2.92 x10 6/uL 4.00-5.60 L RBC) HEMOGLOBIN (test code = HGB) 8.0 g/dL 12.5-16.9 L HEMATOCRIT (test code = HCT) 25.5 % 37.5-50.7 L MEAN CELL VOLUME (test code = 87.3 fL 81.0-99.0 N MCV) MEAN CELL HGB (test code = MCH) 27.4 pg 27.0-33.0 N MEAN CELL HGB CONCETRATION 31.4 g/dL 33.0-37.0 L (test code = MCHC) RED CELL DISTRIBUTION WIDTH CV 13.9 % 11.5-14.5 N (test code = RDW) RED CELL DISTRIBUTION WIDTH SD 44.7 fL 37.0-54.0 N (test code = RDW-SD) PLATELET COUNT (test code = 188 x10 3/uL 150-400 N PLT) MEAN PLATELET VOLUME (test code 10.1 fL 7.0-9.0 H = MPV) NEUTROPHIL % (test code = NT%) 75.0 % 56.0-77.0 N IMMATURE GRANULOCYTE % (test 0.5 % 0.0-2.0 N code = IG%) LYMPHOCYTE % (test code = LY%) 15.1 % 14.0-32.0 N MONOCYTE % (test code = MO%) 6.8 % 4.8-9.0 N EOSINOPHIL % (test code = EO%) 2.3 % 0.3-3.7 N BASOPHIL % (test code = BA%) 0.3 % 0.0-2.0 N NUCLEATED RBC % (test code = 0.0 % 0-0 N NRBC%) NEUTROPHIL # (test code = NT#) 6.51 x10 3/uL 2.0-7.6 N IMMATURE GRANULOCYTE # (test 0.04 x10 3/uL 0.00-0.03 H code = IG#) LYMPHOCYTE # (test code = LY#) 1.31 x10 3/uL 1.0-3.8 N MONOCYTE # (test code = MO#) 0.59 x10 3/uL 0.1-0.8 N EOSINOPHIL # (test code = EO#) 0.20 x10 3/uL 0.0-0.2 N BASOPHIL # (test code = BA#) 0.03 x10 3/uL 0.0-0.2 N NUCLEATED RBC # (test code = 0.00 x10 3/uL 0.0-0.1 N NRBC#) MANUAL DIFF REQUIRED (test code NO = MDIFF) COMPREHENSIVE METABOLIC [id number] 07:30:00 Test Item Value Reference Range Interpretation Comments SODIUM (test code = 135 mEq/L 134-147 N NA) POTASSIUM (test code 4.6 mEq/L 3.4-5.0 N = K) CHLORIDE (test code 111 mEq/L 100-108 H = CL) CARBON DIOXIDE (test 22 mEq/l 21-33 N code = CO2) ANION GAP (test code 6 0-20 N = GAP) GLUCOSE (test code = 92 mg/dL 70-110 N GLU) BLOOD UREA NITROGEN 22 mg/dL 7-18 H (test code = BUN) GLOMERULAR 77.8 90-95 L The Glomerular FILTRATION RATE Filtration R ate is a (test code = GFR) calculated parameterbased on serum Creatinin e, patient age and sex. GFR valuesless than 60 mL/min/1.73 squ are meters are gissell cative ofChronic Kidne y Disease. Values less than 15 mL/min/1.73squa re meters indicate Kidney failure. The calculation for GFR is based on the CK D-EPI (2020) calculat ion. This formulais race indifferent and is the recommended for rodrigo for GFRby the [facility] on for Adults.The GFR will not calculate i f the sex is unknown or if thepatient's ag e is <18 years. CREATININE (test 1.1 mg/dL 0.6-1.3 N code = CREAT) TOTAL PROTEIN (test 6.7 g/dL 6.4-8.2 N code = PROT) ALBUMIN (test code = 1.30 g/dL 3.4-5.0 L ALB) CALCIUM (test code = 7.9 mg/dL 8.0-10.5 L CA) BILIRUBIN TOTAL 0.30 mg/dL 0.0-1.0 N (test code = BILT) SGOT/AST (test code 15 IUnit/L 15-37 N = AST) SGPT/ALT (test code < 7 IUnit/L 30-65 L = ALT) ALKALINE PHOSPHATASE 93 IUnit/L 20-125 N TOTAL (test code = ALKP) [id number] 07:30:00 Test Item Value Reference Range Interpretation Comments MAGNESIUM (test code = MAG) 1.89 mg/dL 1.80-2.40 N [id number] 07:30:00 Test Item Value Reference Range Interpretation Comments PREALBUMIN (test code = PREALB) < 5.0 mg/dL 16.0-40.0 L GLUCOSE [id number] 05:35:00 Test Item Value Reference Range Interpretation Comments GLUCOSE BEDSIDE (test 88 MG/DL 70-110 N Perfor med by certified code = GLUBED) dredge operator at [facility] GLUCOSE [id number] 19:45:00 Test Item Value Reference Range Interpretation Comments GLUCOSE BEDSIDE (test 210 MG/DL 70-110 H Perfor med by certified code = GLUBED) dredge operator at [facility] GLUCOSE [id number] 19:45:00 Test Item Value Reference Range Interpretation Comments GLUCOSE BEDSIDE (test 159 MG/DL 70-110 H Perfor med by certified code = GLUBED) dredge operator at [facility] GLUCOSE [id number] 17:45:00 Test Item Value Reference Range Interpretation Comments GLUCOSE BEDSIDE (test 102 MG/DL 70-110 N Perfor med by certified code = GLUBED) dredge operator at [facility] GLUCOSE [id number] 16:23:00 Test Item Value Reference Range Interpretation Comments GLUCOSE BEDSIDE (test 97 MG/DL 70-110 N Perfor med by certified code = GLUBED) dredge operator at [facility] GLUCOSE [id number] 15:40:00 Test Item Value Reference Range Interpretation Comments GLUCOSE BEDSIDE (test 257 MG/DL 70-110 H Perfor med by certified code = GLUBED) dredge operator at [facility] GLUCOSE [id number] 11:00:00 Test Item Value Reference Range Interpretation Comments GLUCOSE BEDSIDE (test 162 MG/DL 70-110 H Perfor med by certified code = GLUBED) dredge operator at [facility] GLUCOSE [id number] 10:22:00 Test Item Value Reference Range Interpretation Comments GLUCOSE BEDSIDE (test 62 MG/DL 70-110 L Perfor med by certified code = GLUBED) dredge operator at [facility] GLUCOSE [id number] 10:20:00 Test Item Value Reference Range Interpretation Comments GLUCOSE BEDSIDE (test 63 MG/DL 70-110 L Perfor med by certified code = GLUBED) dredge operator at [facility] GLUCOSE [id number] 06:41:00 Test Item Value Reference Range Interpretation Comments GLUCOSE BEDSIDE (test 77 MG/DL 70-110 N Perfor med by certified code = GLUBED) dredge operator at [facility] BASIC METABOLIC [id number] 05:46:00 Test Item Value Reference Range Interpretation Comments SODIUM (test code = 134 mEq/L 134-147 N NA) POTASSIUM (test code 5.0 mEq/L 3.4-5.0 N = K) CHLORIDE (test code 111 mEq/L 100-108 H = CL) CARBON DIOXIDE (test 21 mEq/l 21-33 N code = CO2) ANION GAP (test code 7 0-20 N = GAP) GLUCOSE (test code = 88 mg/dL 70-110 GLU) BLOOD UREA NITROGEN 26 mg/dL 7-18 H (test code = BUN) GLOMERULAR 70.1 90-95 L The Glomerular FILTRATION RATE Filtration R ate is a (test code = GFR) calculated parameterbased on serum Creatinine, pat ient age and sex. GFR va luesless than 60 mL/min/ 1.73 square meters a re indicative ofCh ronic Kidney Disease. Values less than 15 mL/min/1.73squa re meters indicate Kidney failure. The calculation forGFR is based on the CKD-EPI (2020) calculat ion. This formulais race indifferent and is the recommended for [facility] for GFRby the [facility] Foundati on for Adults.The GFR will not calculate if th e sex is unknown or if thepatient's ag e is <18 years. CREATININE (test 1.2 mg/dL 0.6-1.3 N code = CREAT) CALCIUM (test code = 7.4 mg/dL 8.0-10.5 L CA) GLUCOSE [id number] 19:54:00 Test Item Value Reference Range Interpretation Comments GLUCOSE BEDSIDE (test 91 MG/DL 70-110 N Perfor med by certified code = GLUBED) dredge operator at [facility] GLUCOSE [id number] 17:17:00 Test Item Value Reference Range Interpretation Comments GLUCOSE BEDSIDE (test 127 MG/DL 70-110 H Perfor med by certified code = GLUBED) dredge operator at [facility] [id number] 11:20:00 Test Item Value Reference Range Interpretation Comments SURGICAL (test code = SR) R UN DATE: 09/01/22 [place] - LAB PAGE 1 RUN TIME: 1120 Specimen Inquiry RUN USER: INTERFACE P ATIENT: KARMA ROWLAND LOC: DONYA U #: [id number] AGE/SX: 56/M ROOM: [facility] RE08/18/22REG DR: Wilbert Ramires MD : 61 BED: 1 DIS: STATUS: ADM IN TLOC: SPEC #: [id number] RECD: 08/29/22 STATUS: JC REShanell #: [id number] JULIENNE: 08/28/22- SUBM DR: Nixon Leroy MD ENTERED: 08/29/22 SP TYPE: SURGICAL OTHR DR: No Primary or Family Physician Self Referred Ever,Andrew Jacob MD, MD, Jeffrey B MD Hackney, Jeromy T MD Juarez,Nixon Chapin,Braxton Parham,Liam Henley MD, DPMIn Hal MDORDERED: [id number], ANATOMIC SPEC CODES: [id number] - LEG, NOS COPIES TO: No Primary or Family Physician [place] [address] [facility] [address] [place] [address] Andrew London MD [address] [place] [address] Mj Vences MD [address] [place] [address] David Bass MD [address] [facility] [place] [address] [email or web address] [email or web address] ON NEXT PAGE R UN DATE: 09/01/22 [place] - LAB PAGE 2 RUN TIME: 1120 Specimen Inquiry RUN USER: INTERFACE S PEC #: [id number] PATIENT: KARMA ROWLAND #[id number] (Continued) COPIES TO: (Continued) Nixon Leroy MD [address] [place] [address] Braxton Chapin MD [address] [facility] [address] [place] [address] Gianni Parham MD [address] [facility], [address] [place] [address] iLam Pedersen DPM [address] [facility], [address] [place] [address] [email or web address] Forrest Oswald MD [address] [place] [address] [address] [place], [place] [id number] PROCEDURES: 15065 (08/29/22) TISSUES: LEG, NOS - RIGHT BELOW KNEE AMPUTATION CLINICAL HISTORY SAME FINAL DIAGNOSIS Right foot and ankle, below the knee amputation:Gangrene.Calcific atherosclerosis.Surgical margins are viable. GROSS DESCRIPTION The specimen received in a biohazard bag labeled with the patient's name and designatedright below knee amputation consists of a below the knee amputation that measures 34 cmfrom resection margin to heel. The foot measures 23 x 8 cm. The ankle has a necrotic areathat measures 10 cm in greatest dimension. The resection margins appear grossly viable. [employer] sections of the resection margins are submitted in cassette A. CONTINUED ON NEXT PAGE R UN DATE: 09/01/22 [place] [facility] PAGE 3 RUN TIME: 1120 Specimen Inquiry RUN USER: INTERFACE S GLENROY #: [id number] PATIENT: KARMA ROWLAND #[id number] (Continued) GROSS DESCRIPTION (Continued) [employer] sections of the gangrenous tissue are submitted in cassette B. [employer] sections of the vasculature are submitted in cassette C. Technical [place] [address] Unless gross only, the diagnosis is based upon microscopic examination.Immunohistochemistr y: This test was developed and its performance characteristicsdetermined by this laboratory. It has not been approved nor does it need approvalby the [place] FDA. Appropriate positive and negative controls are reviewed and judgedto be acceptable. This laboratory is certified under the Clinical Laboratory ImprovementAmendments (CLIA-88) as qualified to perform high complexity clinical laboratory testing. MICROSCOPIC DESCRIPTION A microscopic examination was performed. CLINICAL INFORMATION GANGRENE RIGHT FOOT AND ANKLE ---- Signed SIGNATURE ON FILE Chase Crane 09/01/22 1120 END OF REPORT GLUCOSE [id number] 11:15:00 Test Item Value Reference Range Interpretation Comments GLUCOSE BEDSIDE (test 118 MG/DL 70-110 H Perfor med by certified code = GLUBED) dredge operator at [facility] COVID 19 Asymptomatic IH [id number] 09:45:00 Test Item Value Reference Range Interpretation Comments COVID 19 Asymptomatic Negative Negative A nega tive result is IH AG (test code = presumpti ve and should COVNONPUIAG) be confirmedwit h an FDA authorized mole cular assay, if neces vanesa forpatient maryanne gement.A positive result does not rule out co-inf ections withother patho gens.This test detects barbara th viable (live) and non-viable,SARS -CoV, and SARS-CoV-2. Ozzy t performance dep ends on theamount of vi renetta (antigen) in th e sample.This ozzy t has not been FDA cleare d or approved; the t est hasbeen authori zed by FDA under an Em ergency Use Authorizati on(EUA) for use by labo ratories certified under the CLIA thatmeet the requirements to perform moderate, high or waivedcomplexit y tests. GLUCOSE [id number] 07:16:00 Test Item Value Reference Range Interpretation Comments GLUCOSE BEDSIDE (test 145 MG/DL 70-110 H Perfor med by certified code = GLUBED) dredge operator at [facility] CREATINE KINASE (CK)2022-09-01 05:19:00 Test Item Value Reference Range Interpretation Comments CREATINE KINASE (CK) (test code = 79 Units/L 46-171 N CK) GLUCOSE [id number] 19:34:00 Test Item Value Reference Range Interpretation Comments GLUCOSE BEDSIDE (test 176 MG/DL 70-110 H Perfor med by certified code = GLUBED) dredge operator at [facility] HGB [id number] 18:22:00 Test Item Value Reference Range Interpretation Comments HEMOGLOBIN (test code = HGB) 9.1 g/dL 12.5-16.9 L HEMATOCRIT (test code = HCT) 28.2 % 37.5-50.7 L GLUCOSE [id number] 16:31:00 Test Item Value Reference Range Interpretation Comments GLUCOSE BEDSIDE (test 163 MG/DL 70-110 H Perfor med by certified code = GLUBED) dredge operator at [facility] GLUCOSE [id number] 12:53:00 Test Item Value Reference Range Interpretation Comments GLUCOSE BEDSIDE (test 76 MG/DL 70-110 N Perfor med by certified code = GLUBED) dredge operator at [facility] GLUCOSE [id number] 12:20:00 Test Item Value Reference Range Interpretation Comments GLUCOSE BEDSIDE (test 44 MG/DL 70-110 L Perfor med by certified code = GLUBED) dredge operator at [facility] CBC W/AUTO [id number] 07:49:00 Test Item Value Reference Range Interpretation Comments WHITE BLOOD CELL (test code = 8.7 x10 3/uL 4.5-11.0 N WBC) RED BLOOD CELL (test code = 2.50 x10 6/uL 4.00-5.60 L RBC) HEMOGLOBIN (test code = HGB) 6.9 g/dL 12.5-16.9 L HEMATOCRIT (test code = HCT) 21.7 % 37.5-50.7 L MEAN CELL VOLUME (test code = 86.8 fL 81.0-99.0 N MCV) MEAN CELL HGB (test code = MCH) 27.6 pg 27.0-33.0 N MEAN CELL HGB CONCETRATION 31.8 g/dL 33.0-37.0 L (test code = MCHC) RED CELL DISTRIBUTION WIDTH CV 14.3 % 11.5-14.5 N (test code = RDW) RED CELL DISTRIBUTION WIDTH SD 45.4 fL 37.0-54.0 N (test code = RDW-SD) PLATELET COUNT (test code = 208 x10 3/uL 150-400 N PLT) MEAN PLATELET VOLUME (test code 9.4 fL 7.0-9.0 H = MPV) NEUTROPHIL % (test code = NT%) 76.3 % 56.0-77.0 N IMMATURE GRANULOCYTE % (test 0.3 % 0.0-2.0 N code = IG%) LYMPHOCYTE % (test code = LY%) 16.8 % 14.0-32.0 N MONOCYTE % (test code = MO%) 4.8 % 4.8-9.0 N EOSINOPHIL % (test code = EO%) 1.6 % 0.3-3.7 N BASOPHIL % (test code = BA%) 0.2 % 0.0-2.0 N NUCLEATED RBC % (test code = 0.0 % 0-0 N NRBC%) NEUTROPHIL # (test code = NT#) 6.63 x10 3/uL 2.0-7.6 N IMMATURE GRANULOCYTE # (test 0.03 x10 3/uL 0.00-0.03 N code = IG#) LYMPHOCYTE # (test code = LY#) 1.46 x10 3/uL 1.0-3.8 N MONOCYTE # (test code = MO#) 0.42 x10 3/uL 0.1-0.8 N EOSINOPHIL # (test code = EO#) 0.14 x10 3/uL 0.0-0.2 N BASOPHIL # (test code = BA#) 0.02 x10 3/uL 0.0-0.2 N NUCLEATED RBC # (test code = 0.00 x10 3/uL 0.0-0.1 N NRBC#) MANUAL DIFF REQUIRED (test code NO = MDIFF) BASIC METABOLIC [id number] 07:34:00 Test Item Value Reference Range Interpretation Comments SODIUM (test code = 136 mEq/L 134-147 N NA) POTASSIUM (test code 5.4 mEq/L 3.4-5.0 H = K) CHLORIDE (test code 110 mEq/L 100-108 H = CL) CARBON DIOXIDE (test 22 mEq/l 21-33 N code = CO2) ANION GAP (test code 9 0-20 N = GAP) GLUCOSE (test code = 129 mg/dL 70-110 H GLU) BLOOD UREA NITROGEN 29 mg/dL 7-18 H (test code = BUN) GLOMERULAR 70.1 90-95 L The Glomerular FILTRATION RATE Filtration R ate is a (test code = GFR) calculated parameterbased on serum Creatinine, pat ient age and sex. GFR va luesless than 60 mL/min/ 1.73 square meters a re indicative ofCh ronic Kidney Disease. Values less than 15 mL/min/1.73squa re meters indicate Kidney failure. The calculation forGFR is based on the CKD-EPI (2020) calculat ion. This formulais race indifferent and is the recommended for rodrigo for GFRby the [facility] Kidney Foundati on for Adults.The GFR will not calculate if th e sex is unknown or if thepatient's ag e is <18 years. CREATININE (test 1.2 mg/dL 0.6-1.3 N code = CREAT) CALCIUM (test code = 7.2 mg/dL 8.0-10.5 L CA) GLUCOSE [id number] 07:31:00 Test Item Value Reference Range Interpretation Comments GLUCOSE BEDSIDE (test 110 MG/DL 70-110 N Perfor med by certified code = GLUBED) dredge operator at [facility] GLUCOSE [id number] 20:49:00 Test Item Value Reference Range Interpretation Comments GLUCOSE BEDSIDE (test 140 MG/DL 70-110 H Perfor med by certified code = GLUBED) dredge operator at [facility] GLUCOSE [id number] 17:11:00 Test Item Value Reference Range Interpretation Comments GLUCOSE BEDSIDE (test 109 MG/DL 70-110 N Perfor med by certified code = GLUBED) dredge operator at [facility] GLUCOSE [id number] 12:35:00 Test Item Value Reference Range Interpretation Comments GLUCOSE BEDSIDE (test 81 MG/DL 70-110 N Perfor med by certified code = GLUBED) dredge operator at [facility] GLUCOSE [id number] 08:38:00 Test Item Value Reference Range Interpretation Comments GLUCOSE BEDSIDE (test 83 MG/DL 70-110 N Perfor med by certified code = GLUBED) dredge operator at [facility] BASIC METABOLIC [id number] 06:17:00 Test Item Value Reference Range Interpretation Comments SODIUM (test code = 136 mEq/L 134-147 N NA) POTASSIUM (test code 5.2 mEq/L 3.4-5.0 H = K) CHLORIDE (test code 109 mEq/L 100-108 H = CL) CARBON DIOXIDE (test 23 mEq/l 21-33 N code = CO2) ANION GAP (test code 9 0-20 N = GAP) GLUCOSE (test code = 65 mg/dL 70-110 L GLU) BLOOD UREA NITROGEN 33 mg/dL 7-18 H (test code = BUN) GLOMERULAR 63.7 90-95 L The Glomerular FILTRATION RATE Filtration R ate is a (test code = GFR) calculated parameterbased on serum Creatinine, pat ient age and sex. GFR va luesless than 60 mL/min/ 1.73 square meters a re indicative ofCh ronic Kidney Disease. Values less than 15 mL/min/1.73squa re meters indicate Kidney failure. The calculation forGFR is based on the CKD-EPI (2020) calculat ion. This formulais race indifferent and is the recommended for rodrigo for GFRby the [facility] Kidney Foundati on for Adults.The GFR will not calculate if th e sex is unknown or if thepatient's ag e is <18 years. CREATININE (test 1.3 mg/dL 0.6-1.3 N code = CREAT) CALCIUM (test code = 7.3 mg/dL 8.0-10.5 L CA) [id number] 06:17:00 Test Item Value Reference Range Interpretation Comments PHOSPHOROUS (test code = PHOS) 4.6 MG/DL 2.5-4.9 N [id number] 06:17:00 Test Item Value Reference Range Interpretation Comments MAGNESIUM (test code = MAG) 2.01 mg/dL 1.80-2.40 N CBC W/AUTO [id number] 06:07:00 Test Item Value Reference Range Interpretation Comments WHITE BLOOD CELL (test code = 12.6 x10 3/uL 4.5-11.0 H WBC) RED BLOOD CELL (test code = 2.55 x10 6/uL 4.00-5.60 L RBC) HEMOGLOBIN (test code = HGB) 7.2 g/dL 12.5-16.9 L HEMATOCRIT (test code = HCT) 22.7 % 37.5-50.7 L MEAN CELL VOLUME (test code = 89.0 fL 81.0-99.0 MCV) MEAN CELL HGB (test code = MCH) 28.2 pg 27.0-33.0 N MEAN CELL HGB CONCETRATION 31.7 g/dL 33.0-37.0 L (test code = MCHC) RED CELL DISTRIBUTION WIDTH CV 14.5 % 11.5-14.5 N (test code = RDW) RED CELL DISTRIBUTION WIDTH SD 46.9 fL 37.0-54.0 N (test code = RDW-SD) PLATELET COUNT (test code = 197 x10 3/uL 150-400 N PLT) MEAN PLATELET VOLUME (test code 9.5 fL 7.0-9.0 H = MPV) NEUTROPHIL % (test code = NT%) 78.7 % 56.0-77.0 H IMMATURE GRANULOCYTE % (test 0.6 % 0.0-2.0 N code = IG%) LYMPHOCYTE % (test code = LY%) 13.4 % 14.0-32.0 L MONOCYTE % (test code = MO%) 6.3 % 4.8-9.0 N EOSINOPHIL % (test code = EO%) 0.8 % 0.3-3.7 N BASOPHIL % (test code = BA%) 0.2 % 0.0-2.0 N NUCLEATED RBC % (test code = 0.0 % 0-0 N NRBC%) NEUTROPHIL # (test code = NT#) 9.96 x10 3/uL 2.0-7.6 H IMMATURE GRANULOCYTE # (test 0.08 x10 3/uL 0.00-0.03 H code = IG#) LYMPHOCYTE # (test code = LY#) 1.69 x10 3/uL 1.0-3.8 N MONOCYTE # (test code = MO#) 0.79 x10 3/uL 0.1-0.8 N EOSINOPHIL # (test code = EO#) 0.10 x10 3/uL 0.0-0.2 N BASOPHIL # (test code = BA#) 0.02 x10 3/uL 0.0-0.2 N NUCLEATED RBC # (test code = 0.00 x10 3/uL 0.0-0.1 N NRBC#) MANUAL DIFF REQUIRED (test code NO = MDIFF) GLUCOSE [id number] 20:22:00 Test Item Value Reference Range Interpretation Comments GLUCOSE BEDSIDE (test 81 MG/DL 70-110 N Perfor med by certified code = GLUBED) dredge operator at [facility] GLUCOSE [id number] 17:07:00 Test Item Value Reference Range Interpretation Comments GLUCOSE BEDSIDE (test 157 MG/DL 70-110 H Perfor med by certified code = GLUBED) dredge operator at [facility] [id number] 11:37:00 Test Item Value Reference Range Interpretation Comments PREALBUMIN (test code = PREALB) < 5.0 mg/dL 16.0-40.0 L GLUCOSE [id number] 10:52:00 Test Item Value Reference Range Interpretation Comments GLUCOSE BEDSIDE (test 105 MG/DL 70-110 N Perfor med by certified code = GLUBED) dredge operator at [facility] GLUCOSE [id number] 09:23:00 Test Item Value Reference Range Interpretation Comments GLUCOSE BEDSIDE (test 70 MG/DL 70-110 N Perfor med by certified code = GLUBED) dredge operator at [facility] GLUCOSE [id number] 08:54:00 Test Item Value Reference Range Interpretation Comments GLUCOSE BEDSIDE (test 70 MG/DL 70-110 N Perfor med by certified code = GLUBED) dredge operator at [facility] BASIC METABOLIC [id number] 06:45:00 Test Item Value Reference Range Interpretation Comments SODIUM (test code = 136 mEq/L 134-147 N NA) POTASSIUM (test code 4.9 mEq/L 3.4-5.0 N = K) CHLORIDE (test code 109 mEq/L 100-108 H = CL) CARBON DIOXIDE (test 23 mEq/l 21-33 N code = CO2) ANION GAP (test code 9 0-20 N = GAP) GLUCOSE (test code = 90 mg/dL 70-110 GLU) BLOOD UREA NITROGEN 31 mg/dL 7-18 H (test code = BUN) GLOMERULAR 53.6 90-95 L The Glomerular FILTRATION RATE Filtration R ate is a (test code = GFR) calculated parameterbased on serum Creatinine, pat ient age and sex. GFR va luesless than 60 mL/min/ 1.73 square meters a re indicative ofCh ronic Kidney Disease. Values less than 15 mL/min/1.73squa re meters indicate Kidney failure. The calculation forGFR is based on the CKD-EPI (2020) calculat ion. This formulais race indifferent and is the recommended for rodrigo for GFRby the [facility] on for Adults.The GFR will not calculate if th e sex is unknown or if thepatient's ag e is <18 years. CREATININE (test 1.5 mg/dL 0.6-1.3 H code = CREAT) CALCIUM (test code = 7.2 mg/dL 8.0-10.5 L CA) [id number] 06:45:00 Test Item Value Reference Range Interpretation Comments PHOSPHOROUS (test code = PHOS) 5.2 MG/DL 2.5-4.9 H [id number] 06:45:00 Test Item Value Reference Range Interpretation Comments MAGNESIUM (test code = MAG) 1.91 mg/dL 1.80-2.40 N CBC W/AUTO [id number] 05:47:00 Test Item Value Reference Range Interpretation Comments WHITE BLOOD CELL (test code = 14.2 x10 3/uL 4.5-11.0 H WBC) RED BLOOD CELL (test code = 2.50 x10 6/uL 4.00-5.60 L RBC) HEMOGLOBIN (test code = HGB) 7.1 g/dL 12.5-16.9 L HEMATOCRIT (test code = HCT) 21.5 % 37.5-50.7 L MEAN CELL VOLUME (test code = 86.0 fL 81.0-99.0 N MCV) MEAN CELL HGB (test code = 28.4 pg 27.0-33.0 N MCH) MEAN CELL HGB CONCETRATION 33.0 g/dL 33.0-37.0 N (test code = MCHC) RED CELL DISTRIBUTION WIDTH CV 14.6 % 11.5-14.5 H (test code = RDW) RED CELL DISTRIBUTION WIDTH SD 45.9 fL 37.0-54.0 N (test code = RDW-SD) PLATELET COUNT (test code = 212 x10 3/uL 150-400 N PLT) MEAN PLATELET VOLUME (test 9.2 fL 7.0-9.0 H code = MPV) NEUTROPHIL % (test code = NT%) 83.2 % 56.0-77.0 H IMMATURE GRANULOCYTE % (test 0.6 % 0.0-2.0 N code = IG%) LYMPHOCYTE % (test code = LY%) 10.0 % 14.0-32.0 L MONOCYTE % (test code = MO%) 5.6 % 4.8-9.0 N EOSINOPHIL % (test code = EO%) 0.5 % 0.3-3.7 N BASOPHIL % (test code = BA%) 0.1 % 0.0-2.0 N NUCLEATED RBC % (test code = 0.0 % 0-0 N NRBC%) NEUTROPHIL # (test code = NT#) 11.78 x10 3/uL 2.0-7.6 H IMMATURE GRANULOCYTE # (test 0.08 x10 3/uL 0.00-0.03 H code = IG#) LYMPHOCYTE # (test code = LY#) 1.42 x10 3/uL 1.0-3.8 N MONOCYTE # (test code = MO#) 0.79 x10 3/uL 0.1-0.8 N EOSINOPHIL # (test code = EO#) 0.07 x10 3/uL 0.0-0.2 N BASOPHIL # (test code = BA#) 0.02 x10 3/uL 0.0-0.2 N NUCLEATED RBC # (test code = 0.00 x10 3/uL 0.0-0.1 N NRBC#) MANUAL DIFF REQUIRED (test NO code = MDIFF) GLUCOSE [id number] 20:27:00 Test Item Value Reference Range Interpretation Comments GLUCOSE BEDSIDE (test 145 MG/DL 70-110 H Perfor med by certified code = GLUBED) dredge operator at [facility] GLUCOSE [id number] 17:21:00 Test Item Value Reference Range Interpretation Comments GLUCOSE BEDSIDE (test 103 MG/DL 70-110 N Perfor med by certified code = GLUBED) dredge operator at [facility] [id number] 13:39:00 Test Item Value Reference Range Interpretation Comments SURGICAL (test code = SR) R UN DATE: 08/28/22 [place] - LAB PAGE 1 RUN TIME: 1339 Specimen Inquiry RUN USER: INTERFACE Anibal ATIENT: KARMA ROWLAND LOC: [facility] U #: [id number] AGE/SX: 56/M ROOM: [facility] RE08/18/22REG DR: Wilbert Ramires MD : 61 BED: 1 DIS: STATUS: ADM IN TLOC: SPEC #: [id number] RECD: 08/27/22 STATUS: JC YOLY #: [id number] JULIENNE: 08/26/22- SUBM DR: David Bass MD ENTERED: 08/27/22-1017 SP TYPE: SURGICAL OTHR DR: No Primary or Family Physician Self Referred Anthony Curtis MD, Brent J MD Hackney, Jeromy T MD Juarez, Jesus MD Kaul, Kuldip K MD Patel, Snehalkumar A MD Reyhani, Sean X DPM Yo,In S MDORDERED: [id number], ANATOMIC SPEC COPIES TO: No Primary or Family Phys[place] [address] [facility] [address] [place], [place] [id number] Andrew London MD [address] [place] [address] David Bass MD 150 [facility] [place] [id number] [email or web address] Nixon Leroy MD [address] [place] [address] Braxton Chapin MD [address] [facility] [address] [place] [address] CONTINUED ON NEXT PAGE R UN DATE: 08/28/22 [place] - LAB PAGE 2 RUN TIME: 1339 Specimen Inquiry RUN USER: INTERFACE S GLENROY #: [id number] PATIENT: KARMA ROWLAND #[id number] (Continued) COPIES TO: (Continued) Gianni Parham MD [address] [facility], [address] [place], [place] [id number] Liam Pedersen DPM [address] [id number] [email or web address] [address] [place] [address] [address] [place] [address] PROCEDURES: [id number] (08/27/22-1016) TISSUES: A. CHIPS - PROSTATE TURP CLINICAL HISTORY SAME FINAL DIAGNOSIS Prostate chips, submitted: Fragments of fibromuscular tissue with abundant acute andchronic inflammation and some necrotic debris; background benign appearing prostate tissue. GROSS DESCRIPTION Received in formalin labeled prostate chips multiple yellow-ramirez tissue fragments weighing1.5 g and measuring 2 cm in aggregate submitted (A)-(B). Technical component performed at [facility],[address] [place] [address], [place] [address] Unless gross only, the diagnosis is based upon microscopic examination.Immunohistochemistr y: This test was developed and its performance characteristicsdetermined by this laboratory. It has not been approved nor does it need approvalby the [place] FDA. Appropriate positive and negative controls are reviewed and judgedto be acceptable. This laboratory is certified under the Clinical Laboratory ImprovementAmendments (CLIA-88) as qualified to perform high complexity clinical laboratory testing. CONTINUED ON NEXT PAGE R UN DATE: 08/28/22 [place] - LAB PAGE 3 RUN TIME: 1339 Specimen Inquiry RUN USER: INTERFACE S GLENROY #: [id number] PATIENT: KARMA ROWLAND #[id number] (Continued) CLINICAL INFORMATION PROSTATE ABSCESS ------ Signed SIGNATURE ON Wilfrid Emerson 08/28/22 1339 END OF REPORT GLUCOSE [id number] 13:14:00 Test Item Value Reference Range Interpretation Comments GLUCOSE BEDSIDE (test 206 MG/DL 70-110 H Perfor med by certified code = GLUBED) dredge operator at [facility] GLUCOSE [id number] 12:29:00 Test Item Value Reference Range Interpretation Comments GLUCOSE BEDSIDE (test 185 MG/DL 70-110 H Perfor med by certified code = GLUBED) dredge operator at [facility] GLUCOSE [id number] 06:34:00 Test Item Value Reference Range Interpretation Comments GLUCOSE BEDSIDE (test 180 MG/DL 70-110 H Perfor med by certified code = GLUBED) dredge operator at [facility] COMPREHENSIVE METABOLIC [id number] 05:30:00 Test Item Value Reference Range Interpretation Comments SODIUM (test code = 137 mEq/L 134-147 N NA) POTASSIUM (test code 5.0 mEq/L 3.4-5.0 N = K) CHLORIDE (test code 109 mEq/L 100-108 H = CL) CARBON DIOXIDE (test 21 mEq/l 21-33 N code = CO2) ANION GAP (test code 12 0-20 N = GAP) GLUCOSE (test code = 167 mg/dL 70-110 H GLU) BLOOD UREA NITROGEN 30 mg/dL 7-18 H (test code = BUN) GLOMERULAR 58.3 90-95 L The Glomerular FILTRATION RATE Filtration R ate is a (test code = GFR) calculated parameterbased on serum Creatinin e, patient age and sex. GFR valuesless than 60 mL/min/1.73 squ are meters are gissell cative ofChronic Kidne y Disease. Values less than 15 mL/min/1.73squa re meters indicate Kidney failure. The calculation for GFR is based on the CK D-EPI (2020) calculat ion. This formulais race indifferent and is the recommended for rodrigo for GFRby the [facility] Kidney Foundati on for Adults.The GFR will not calculate i f the sex is unknown or if thepatient's ag e is <18 years. CREATININE (test 1.4 mg/dL 0.6-1.3 H code = CREAT) TOTAL PROTEIN (test 5.8 g/dL 6.4-8.2 L code = PROT) ALBUMIN (test code = 1.30 g/dL 3.4-5.0 L ALB) CALCIUM (test code = 7.7 mg/dL 8.0-10.5 L CA) BILIRUBIN TOTAL 0.40 mg/dL 0.0-1.0 N (test code = BILT) SGOT/AST (test code 17 IUnit/L 15-37 N = AST) SGPT/ALT (test code 9 IUnit/L 30-65 L = ALT) ALKALINE PHOSPHATASE 111 IUnit/L 20-125 N TOTAL (test code = ALKP) [id number] 05:30:00 Test Item Value Reference Range Interpretation Comments PHOSPHOROUS (test code = PHOS) 4.8 MG/DL 2.5-4.9 N [id number] 05:30:00 Test Item Value Reference Range Interpretation Comments MAGNESIUM (test code = MAG) 1.89 mg/dL 1.80-2.40 N CALCIUM [id number] 05:30:00 Test Item Value Reference Range Interpretation Comments CALCIUM IONIZED (test code = KARLA) 1.12 MMOL/L 1.09-1.30 N CBC W/AUTO [id number] 04:46:00 Test Item Value Reference Range Interpretation Comments WHITE BLOOD CELL (test code = 13.8 x10 3/uL 4.5-11.0 H WBC) RED BLOOD CELL (test code = 2.83 x10 6/uL 4.00-5.60 L RBC) HEMOGLOBIN (test code = HGB) 8.0 g/dL 12.5-16.9 L HEMATOCRIT (test code = HCT) 24.0 % 37.5-50.7 L MEAN CELL VOLUME (test code = 84.8 fL 81.0-99.0 N MCV) MEAN CELL HGB (test code = 28.3 pg 27.0-33.0 N MCH) MEAN CELL HGB CONCETRATION 33.3 g/dL 33.0-37.0 N (test code = MCHC) RED CELL DISTRIBUTION WIDTH CV 14.6 % 11.5-14.5 H (test code = RDW) RED CELL DISTRIBUTION WIDTH SD 45.1 fL 37.0-54.0 N (test code = RDW-SD) PLATELET COUNT (test code = 244 x10 3/uL 150-400 N PLT) MEAN PLATELET VOLUME (test 9.2 fL 7.0-9.0 H code = MPV) NEUTROPHIL % (test code = NT%) 86.7 % 56.0-77.0 H IMMATURE GRANULOCYTE % (test 0.5 % 0.0-2.0 N code = IG%) LYMPHOCYTE % (test code = LY%) 8.2 % 14.0-32.0 L MONOCYTE % (test code = MO%) 4.1 % 4.8-9.0 L EOSINOPHIL % (test code = EO%) 0.4 % 0.3-3.7 N BASOPHIL % (test code = BA%) 0.1 % 0.0-2.0 N NUCLEATED RBC % (test code = 0.0 % 0-0 N NRBC%) NEUTROPHIL # (test code = NT#) 11.92 x10 3/uL 2.0-7.6 H IMMATURE GRANULOCYTE # (test 0.07 x10 3/uL 0.00-0.03 H code = IG#) LYMPHOCYTE # (test code = LY#) 1.13 x10 3/uL 1.0-3.8 N MONOCYTE # (test code = MO#) 0.57 x10 3/uL 0.1-0.8 N EOSINOPHIL # (test code = EO#) 0.05 x10 3/uL 0.0-0.2 N BASOPHIL # (test code = BA#) 0.01 x10 3/uL 0.0-0.2 N NUCLEATED RBC # (test code = 0.00 x10 3/uL 0.0-0.1 N NRBC#) MANUAL DIFF REQUIRED (test NO code = MDIFF) - XR FLUOROSCOPY 0-60 [id number] 00:00:00 [facility] 1965 Sex: M FAX: Wilbert Krause MD [phone] [place]: St: ADM Name: KARMA ROWLAND [facility] : 1965 Age/S: 56/M [address] [place] [address] Unit #: [id number] Loc: G.25 [place] [address] Phys: Wilbert Ramires MD Acct: [id number] Dis Date: Status: ADM IN PHONE #: [phone] Exam Date: 08/28/2022 1101 FAX #: [phone] Reason: RIGHT TIBFIB AMP EXAMS: CPT CODE: [id number] XR FLUOROSCOPY 0-60 MIN 87088 PROCEDURE INFORMATION: Exam: FL Fluoroscopy, Up to 1 Hour Physician Time; Radiologist Not Present For Fluoroscopy Exam date and time: 08/28/2022 10:51 AM Age: 56 years old Clinical indication: Pain; Pain: Or; Additional info: Right tibfib amp TECHNIQUE: Imaging protocol: Fluoroscopy , up to 1 hour physician or other qualified health child care associate time. This radiologist did not supervise this procedure. Exam supervised by facility personnel. Report for radiation dosage reporting and documentation only. Other technique: Radiologist was not present during this procedure. COMPARISON: No relevant prior studies av ailable. RADIATION DOSE METRICS: Fluoroscopy time (seconds): seconds= 1.1 Number of fluoro spot images: images= 2 Reference air kerma (APOLONIA): 0.7 mGy FINDINGS: Procedural imaging: Fluoroscopic assistance was provided. Radiologist was not present during the procedure. Intraoperative review of these images was performed by the operating physician. Please refer to the procedure report for further details. Notes: Fluoroscopy supervised by facility personnel. See also separate procedure report. IMPRESSION: Fluoroscopy dosage documentation. See also separate procedure notes. at 1120 Reported and signed by: Bishop Atkins M.D. CC: Wilbert Ramires MD Technologist: RT Kylie(R) Trnscrd Date/Time/By: 08/28/2022 (112) : By: [email or web address] Orig Print D/T: S: 08/28/2022 (1120) PAGE 1 Signed Report- [facility] UNI/[id number] 00:00:00 [facility] : 1965 Sex: M Name: KARMA ROWLAND [facility] : 1965 Age/S: 56 / M [address] [place] [address] Blvd Unit #: [id number] Loc: [place] [address] Phys: Wilbert Ramires MD Acct: [id number] Dis Date: Status: ADM INPHONE #: [phone] Exam Date: 08/28/2022 0857 FAX #: [phone] Reason: Left leg swelling EXAMS: CPT CODE: [id number] DUP VEIN UNI/LTD 46712 PROCEDURE INFORMATION: Exam: US Duplex Left Lower Extremity Veins, Limited Exam date and time: 08/28/2022 8:40 AM Age: 56 years old Clinical indication: Left lower extremity edema TECHNIQUE: Imaging protocol: Real-time duplex ultrasound of the left extremity with 2-D fierro scale, color Doppler flow and spectral waveform analysis including responses to compression and other maneuvers (when performed) with image documentation. Limited exam focused on the left lower extremity veins. COMPARISON: CT ABD PELVIS W/CONT 08/18/2022 3:36 AM FINDINGS: Left deep veins: Unremarkable. The common femoral, femoral, proximal profunda femoral and popliteal veins are patent without thrombus. Normal Doppler waveforms. Normal compressibility and/or augmentation response. Left superficial veins: Unremarkable. Saphenofemoral junction is patent without thrombus. Soft tissues: Approximately 8 x 2 x 1.3 cm complex fluid collection along the left upper calf probably representing asmall hematoma. No other soft tissue abnormalities are seen. IMPRESSION: 1. No evidence of venous thrombosis involving left lower extremity. 2. Approximately 8 x 2 x 1.3 cm complex fluid collection along the left upper calf probably representing a small hematoma. at 0927 Reported and signed by: Roger Parra M.D. CC: Wilbert Ramires MD Technologist: Dave Gaines Trnscb Date/Time: 08/28/2022 (926) [email or web address] Orig Print D/T: S: 08/28/2022 (926) Probe: PAGE 1 Signed ReportGLUCOSE [id number] 21:01:00 Test Item Value Reference Range Interpretation Comments GLUCOSE BEDSIDE (test 87 MG/DL 70-110 N [facility] med by certified code = GLUBED) dredge operator at [facility] BASIC METABOLIC [id number] 19:03:00 Test Item Value Reference Range Interpretation Comments SODIUM (test code = 136 mEq/L 134-147 N NA) POTASSIUM (test code 5.1 mEq/L 3.4-5.0 H = K) CHLORIDE (test code 109 mEq/L 100-108 H = CL) CARBON DIOXIDE (test 20 mEq/l 21-33 L code = CO2) ANION GAP (test code 12 0-20 N = GAP) GLUCOSE (test code = 161 mg/dL 70-110 H GLU) BLOOD UREA NITROGEN 30 mg/dL 7-18 H (test code = BUN) GLOMERULAR 70.1 90-95 L The Glomerular FILTRATION RATE Filtration R ate is a (test code = GFR) calculated parameterbased on serum Creatinine, pat ient age and sex. GFR va luesless than 60 mL/min/ 1.73 square meters a re indicative ofCh ronic Kidney Disease. Values less than 15 mL/min/1.73squa re meters indicate Kidney failure. The calculation forGFR is based on the CKD-EPI (2020) calculat ion. This formulais race indifferent and is the recommended for rodrigo for GFRby the [facility] Kidney Foundati on for Adults.The GFR will not calculate if th e sex is unknown or if thepatient's ag e is <18 years. CREATININE (test 1.2 mg/dL 0.6-1.3 N code = CREAT) CALCIUM (test code = 7.5 mg/dL 8.0-10.5 L CA) GLUCOSE [id number] 17:42:00 Test Item Value Reference Range Interpretation Comments GLUCOSE BEDSIDE (test 148 MG/DL 70-110 H Perfor med by certified code = GLUBED) dredge operator at [facility] GLUCOSE [id number] 14:51:00 Test Item Value Reference Range Interpretation Comments GLUCOSE BEDSIDE (test 244 MG/DL 70-110 H Perfor med by certified code = GLUBED) dredge operator at [facility] GLUCOSE [id number] 08:35:00 Test Item Value Reference Range Interpretation Comments GLUCOSE BEDSIDE (test 294 MG/DL 70-110 H Perfor med by certified code = GLUBED) dredge operator at [facility] COMPREHENSIVE METABOLIC [id number] 06:21:00 Test Item Value Reference Range Interpretation Comments SODIUM (test code = 137 mEq/L 134-147 N NA) POTASSIUM (test code 5.3 mEq/L 3.4-5.0 H = K) CHLORIDE (test code 110 mEq/L 100-108 H = CL) CARBON DIOXIDE (test 20 mEq/l 21-33 L code = CO2) ANION GAP (test code 12 0-20 N = GAP) GLUCOSE (test code = 285 mg/dL 70-110 H GLU) BLOOD UREA NITROGEN 33 mg/dL 7-18 H (test code = BUN) GLOMERULAR 70.1 90-95 L The Glomerular FILTRATION RATE Filtration R ate is a (test code = GFR) calculated parameterbased on serum Creatinin e, patient age and sex. GFR valuesless than 60 mL/min/1.73 squ are meters are gissell cative ofChronic Kidne y Disease. Values less than 15 mL/min/1.73squa re meters indicate Kidney failure. The calculation for GFR is based on the CK D-EPI (2020) calculat ion. This formulais race indifferent and is the recommended for rodrigo for GFRby the [facility] Kidney Foundati on for Adults.The GFR will not calculate i f the sex is unknown or if thepatient's ag e is <18 years. CREATININE (test 1.2 mg/dL 0.6-1.3 N code = CREAT) TOTAL PROTEIN (test 5.7 g/dL 6.4-8.2 L code = PROT) ALBUMIN (test code = 1.30 g/dL 3.4-5.0 L ALB) CALCIUM (test code = 7.2 mg/dL 8.0-10.5 L CA) BILIRUBIN TOTAL 0.40 mg/dL 0.0-1.0 N (test code = BILT) SGOT/AST (test code 12 IUnit/L 15-37 L = AST) SGPT/ALT (test code 9 IUnit/L 30-65 L = ALT) ALKALINE PHOSPHATASE 111 IUnit/L 20-125 N TOTAL (test code = ALKP) . Recollection is necessary.[id number] 06:21:00 Test Item Value Reference Range Interpretation Comments PHOSPHOROUS (test code = PHOS) 5.4 MG/DL 2.5-4.9 H . Recollection is necessary.[id number] 06:21:00 Test Item Value Reference Range Interpretation Comments MAGNESIUM (test code = MAG) 1.94 mg/dL 1.80-2.40 N . Recollection is necessary.COMPREHENSIVE METABOLIC [id number] 04:43:00 Test Item Value Reference Range Interpretation Comments SODIUM (test code = NA) mEq/L 134-147 POTASSIUM (test code = K) mEq/L 3.4-5.0 CHLORIDE (test code = CL) mEq/L 100-108 CARBON DIOXIDE (test code = CO2) mEq/l 21-33 ANION GAP (test code = GAP) 0-20 GLUCOSE (test code = GLU) mg/dL 70-110 BLOOD UREA NITROGEN (test code = mg/dL 7-18 BUN) GLOMERULAR FILTRATION RATE (test 90-95 code = GFR) CREATININE (test code = CREAT) mg/dL 0.6-1.3 TOTAL PROTEIN (test code = PROT) g/dL 6.4-8.2 ALBUMIN (test code = ALB) g/dL 3.4-5.0 CALCIUM (test code = CA) mg/dL 8.0-10.5 BILIRUBIN TOTAL (test code = BILT) mg/dL 0.0-1.0 SGOT/AST (test code = AST) IUnit/L 15-37 SGPT/ALT (test code = ALT) IUnit/L 30-65 ALKALINE PHOSPHATASE TOTAL (test IUnit/L 20-125 code = ALKP) [id number] 04:43:00 Test Item Value Reference Range Interpretation Comments PHOSPHOROUS (test code = PHOS) MG/DL 2.5-4.9 [id number] 04:43:00 Test Item Value Reference Range Interpretation Comments MAGNESIUM (test code = MAG) mg/dL 1.80-2.40 CALCIUM [id number] 04:43:00 Test Item Value Reference Range Interpretation Comments CALCIUM IONIZED (test code = KARLA) 1.08 MMOL/L 1.09-1.30 L CBC W/AUTO [id number] 04:43:00 Test Item Value Reference Range Interpretation Comments WHITE BLOOD CELL (test code = 15.9 x10 3/uL 4.5-11.0 H WBC) RED BLOOD CELL (test code = 3.07 x10 6/uL 4.00-5.60 L RBC) HEMOGLOBIN (test code = HGB) 8.6 g/dL 12.5-16.9 L HEMATOCRIT (test code = HCT) 25.9 % 37.5-50.7 L MEAN CELL VOLUME (test code = 84.4 fL 81.0-99.0 N MCV) MEAN CELL HGB (test code = 28.0 pg 27.0-33.0 N MCH) MEAN CELL HGB CONCETRATION 33.2 g/dL 33.0-37.0 N (test code = MCHC) RED CELL DISTRIBUTION WIDTH CV 14.6 % 11.5-14.5 H (test code = RDW) RED CELL DISTRIBUTION WIDTH SD 45.0 fL 37.0-54.0 N (test code = RDW-SD) PLATELET COUNT (test code = 250 x10 3/uL 150-400 N PLT) MEAN PLATELET VOLUME (test 9.8 fL 7.0-9.0 H code = MPV) NEUTROPHIL % (test code = NT%) 88.7 % 56.0-77.0 H IMMATURE GRANULOCYTE % (test 0.6 % 0.0-2.0 N code = IG%) LYMPHOCYTE % (test code = LY%) 7.0 % 14.0-32.0 L MONOCYTE % (test code = MO%) 3.3 % 4.8-9.0 L EOSINOPHIL % (test code = EO%) 0.3 % 0.3-3.7 N BASOPHIL % (test code = BA%) 0.1 % 0.0-2.0 N NUCLEATED RBC % (test code = 0.0 % 0-0 N NRBC%) NEUTROPHIL # (test code = NT#) 14.14 x10 3/uL 2.0-7.6 H IMMATURE GRANULOCYTE # (test 0.10 x10 3/uL 0.00-0.03 H code = IG#) LYMPHOCYTE # (test code = LY#) 1.11 x10 3/uL 1.0-3.8 N MONOCYTE # (test code = MO#) 0.52 x10 3/uL 0.1-0.8 N EOSINOPHIL # (test code = EO#) 0.04 x10 3/uL 0.0-0.2 N BASOPHIL # (test code = BA#) 0.02 x10 3/uL 0.0-0.2 N NUCLEATED RBC # (test code = 0.00 x10 3/uL 0.0-0.1 N NRBC#) MANUAL DIFF REQUIRED (test NO code = MDIFF) GLUCOSE [id number] 00:32:00 Test Item Value Reference Range Interpretation Comments GLUCOSE BEDSIDE (test 166 MG/DL 70-110 H Perfor med by certified code = GLUBED) dredge operator at [facility] GLUCOSE [id number] 20:52:00 Test Item Value Reference Range Interpretation Comments GLUCOSE BEDSIDE (test 148 MG/DL 70-110 H Perfor med by certified code = GLUBED) dredge operator at [facility] GLUCOSE [id number] 17:53:00 Test Item Value Reference Range Interpretation Comments GLUCOSE BEDSIDE (test 169 MG/DL 70-110 H Perfor med by certified code = GLUBED) dredge operator at [facility] GLUCOSE [id number] 09:17:00 Test Item Value Reference Range Interpretation Comments GLUCOSE BEDSIDE (test 163 MG/DL 70-110 H Perfor med by certified code = GLUBED) dredge operator at [facility] COMPREHENSIVE METABOLIC [id number] 06:16:00 Test Item Value Reference Range Interpretation Comments SODIUM (test code = 136 mEq/L 134-147 N NA) POTASSIUM (test code 4.8 mEq/L 3.4-5.0 N = K) CHLORIDE (test code 109 mEq/L 100-108 H = CL) CARBON DIOXIDE (test 21 mEq/l 21-33 N code = CO2) ANION GAP (test code 11 0-20 N = GAP) GLUCOSE (test code = 151 mg/dL 70-110 H GLU) BLOOD UREA NITROGEN 32 mg/dL 7-18 H (test code = BUN) GLOMERULAR 77.8 90-95 L The Glomerular FILTRATION RATE Filtration R ate is a (test code = GFR) calculated parameterbased on serum Creatinin e, patient age and sex. GFR valuesless than 60 mL/min/1.73 squ are meters are gissell cative ofChronic Kidne y Disease. Values less than 15 mL/min/1.73squa re meters indicate Kidney failure. The calculation for GFR is based on the CK D-EPI (2020) calculat ion. This formulais race indifferent and is the recommended for rodrigo for GFRby the [facility] for Ad[facility].The GFR will not calculate i f the sex is unknown or if thepatient's ag e is <18 years. CREATININE (test 1.1 mg/dL 0.6-1.3 N code = CREAT) TOTAL PROTEIN (test 5.5 g/dL 6.4-8.2 L code = PROT) ALBUMIN (test code = 1.30 g/dL 3.4-5.0 L ALB) CALCIUM (test code = 7.7 mg/dL 8.0-10.5 L CA) BILIRUBIN TOTAL 0.50 mg/dL 0.0-1.0 N (test code = BILT) SGOT/AST (test code 19 IUnit/L 15-37 = AST) SGPT/ALT (test code 11 IUnit/L 30-65 L = ALT) ALKALINE PHOSPHATASE 149 IUnit/L 20-125 H TOTAL (test code = ALKP) [id number] 06:16:00 Test Item Value Reference Range Interpretation Comments PHOSPHOROUS (test code = PHOS) 4.6 MG/DL 2.5-4.9 N [id number] 06:16:00 Test Item Value Reference Range Interpretation Comments MAGNESIUM (test code = MAG) 1.89 mg/dL 1.80-2.40 N CALCIUM [id number] 06:16:00 Test Item Value Reference Range Interpretation Comments CALCIUM IONIZED (test code = KARLA) 1.11 MMOL/L 1.09-1.30 N CBC W/AUTO [id number] 05:58:00 Test Item Value Reference Range Interpretation Comments WHITE BLOOD CELL (test code = 17.7 x10 3/uL 4.5-11.0 H WBC) RED BLOOD CELL (test code = 2.44 x10 6/uL 4.00-5.60 L RBC) HEMOGLOBIN (test code = HGB) 6.7 g/dL 12.5-16.9 L HEMATOCRIT (test code = HCT) 20.4 % 37.5-50.7 L MEAN CELL VOLUME (test code = 83.6 fL 81.0-99.0 N MCV) MEAN CELL HGB (test code = 27.5 pg 27.0-33.0 N MCH) MEAN CELL HGB CONCETRATION 32.8 g/dL 33.0-37.0 L (test code = MCHC) RED CELL DISTRIBUTION WIDTH CV 14.7 % 11.5-14.5 H (test code = RDW) RED CELL DISTRIBUTION WIDTH SD 44.8 fL 37.0-54.0 N (test code = RDW-SD) PLATELET COUNT (test code = 253 x10 3/uL 150-400 N PLT) MEAN PLATELET VOLUME (test 9.9 fL 7.0-9.0 H code = MPV) NEUTROPHIL % (test code = NT%) 87.5 % 56.0-77.0 H IMMATURE GRANULOCYTE % (test 0.6 % 0.0-2.0 N code = IG%) LYMPHOCYTE % (test code = LY%) 7.4 % 14.0-32.0 L MONOCYTE % (test code = MO%) 3.9 % 4.8-9.0 L EOSINOPHIL % (test code = EO%) 0.5 % 0.3-3.7 N BASOPHIL % (test code = BA%) 0.1 % 0.0-2.0 N NUCLEATED RBC % (test code = 0.0 % 0-0 N NRBC%) NEUTROPHIL # (test code = NT#) 15.49 x10 3/uL 2.0-7.6 H IMMATURE GRANULOCYTE # (test 0.11 x10 3/uL 0.00-0.03 H code = IG#) LYMPHOCYTE # (test code = LY#) 1.31 x10 3/uL 1.0-3.8 N MONOCYTE # (test code = MO#) 0.69 x10 3/uL 0.1-0.8 N EOSINOPHIL # (test code = EO#) 0.08 x10 3/uL 0.0-0.2 N BASOPHIL # (test code = BA#) 0.01 x10 3/uL 0.0-0.2 N NUCLEATED RBC # (test code = 0.00 x10 3/uL 0.0-0.1 N NRBC#) MANUAL DIFF REQUIRED (test NO code = MDIFF) GLUCOSE [id number] 20:19:00 Test Item Value Reference Range Interpretation Comments GLUCOSE BEDSIDE (test 113 MG/DL 70-110 H Perfor med by certified code = GLUBED) dredge operator at [facility] GLUCOSE [id number] 17:34:00 Test Item Value Reference Range Interpretation Comments GLUCOSE BEDSIDE (test 132 MG/DL 70-110 H Perfor med by certified code = GLUBED) dredge operator at [facility] UA RFLX MICR CULT IF [id number] 11:42:00 Test Item Value Reference Range Interpretation Comments UA COLOR (test code = COLU) YELLOW YEL/STRAW UA APPEARANCE (test code = TURBID CLEAR A APPU) UA GLUCOSE DIPSTICK (test code NEGATIVE NEGATIVE = DGLUU) UA BILIRUBIN DIPSTICK (test NEGATIVE NEGATIVE code = BILU) UA KETONE DIPSTICK (test code NEGATIVE NEGATIVE = KETU) UA SPECIFIC GRAVITY (test code 1.012 1.005-1.030 N = SGU) UA BLOOD DIPSTICK (test code = 2+ NEGATIVE A YOSI) UA PH DIPSTICK (test code = 5.0 5.0-7.0 N STEFFEN) UA PROTEIN DIPSTICK (test code 2+ NEGATIVE A = PROU) UA UROBILINIOGEN DIPSTICK 0.2 mg/dL 0.2-1.0 (test code = URO) UA NITRITE DIPSTICK (test code NEGATIVE NEGATIVE = NOE) UA LEUKOCYTE ESTERASE DIPSTICK 3+ NEGATIVE A (test code = LEUU) UA WBC (test code = WBCU) >50 WBC/HPF 0-3 A UA RBC (test code = RBCU) 21-50 RBC/HPF 0-3 UA WBC NO REFLEX (test code = >50 WBC/HPF 0-3 A WBCUCL) UA BACTERIA (test code = BACU) TRACE /HPF NONE SEEN UA SQUAMOUS CELLS (test code = NONE SEEN /HPF NONE SEEN SQU) UA TRANSITIONAL CELLS (test 3+ /HPF NONE SEEN A code = TRANU) UA MUCUS (test code = MUCU) TRACE /LPF NONE SEEN Cath type: Temporary/indwellingIN date: 08/23/22IN time: 0930Elapse time: 47 Hrs 45 MinsIndication for culture: RiskForSepsis-no oth srcSpecimen Description: CLEAN CATCHCREATINE KINASE (CK)2022-08-25 11:39:00 Test Item Value Reference Range Interpretation Comments CREATINE KINASE (CK) (test code = 17 Units/L 46-171 L CK) [id number] 11:39:00 Test Item Value Reference Range Interpretation Comments POTASSIUM (test code = K) 4.5 mEq/L 3.4-5.0 N GLUCOSE [id number] 11:22:00 Test Item Value Reference Range Interpretation Comments GLUCOSE BEDSIDE (test 143 MG/DL 70-110 H Perfor med by certified code = GLUBED) dredge operator at [facility] COMPREHENSIVE METABOLIC [id number] 08:57:00 Test Item Value Reference Range Interpretation Comments SODIUM (test code = 135 mEq/L 134-147 N NA) POTASSIUM (test code 5.4 mEq/L 3.4-5.0 H = K) CHLORIDE (test code 110 mEq/L 100-108 H = CL) CARBON DIOXIDE (test 19 mEq/l 21-33 L code = CO2) ANION GAP (test code 11 0-20 N = GAP) GLUCOSE (test code = 162 mg/dL 70-110 H GLU) BLOOD UREA NITROGEN 25 mg/dL 7-18 H (test code = BUN) GLOMERULAR 77.8 90-95 L The Glomerular FILTRATION RATE Filtration R ate is a (test code = GFR) calculated parameterbased on serum Creatinin e, patient age and sex. GFR valuesless than 60 mL/min/1.73 squ are meters are gissell cative ofChronic Kidne y Disease. Values less than 15 mL/min/1.73squa re meters indicate Kidney failure. The calculation for GFR is based on the CK D-EPI (2020) calculat ion. This formulais race indifferent and is the recommended for rodrigo for GFRby the [facility] for Ad[facility].The GFR will not calculate i f the sex is unknown or if thepatient's ag e is <18 years. CREATININE (test 1.1 mg/dL 0.6-1.3 N code = CREAT) TOTAL PROTEIN (test 5.6 g/dL 6.4-8.2 L code = PROT) ALBUMIN (test code = 1.30 g/dL 3.4-5.0 L ALB) CALCIUM (test code = 7.3 mg/dL 8.0-10.5 L CA) BILIRUBIN TOTAL 0.50 mg/dL 0.0-1.0 N (test code = BILT) SGOT/AST (test code 40 IUnit/L 15-37 H = AST) SGPT/ALT (test code 21 IUnit/L 30-65 L = ALT) ALKALINE PHOSPHATASE 159 IUnit/L 20-125 H TOTAL (test code = ALKP) [id number] 08:57:00 Test Item Value Reference Range Interpretation Comments PHOSPHOROUS (test code = PHOS) 4.5 MG/DL 2.5-4.9 N [id number] 08:57:00 Test Item Value Reference Range Interpretation Comments MAGNESIUM (test code = MAG) 1.88 mg/dL 1.80-2.40 N CALCIUM [id number] 08:57:00 Test Item Value Reference Range Interpretation Comments CALCIUM IONIZED (test code = KARLA) 0.96 MMOL/L 1.09-1.30 L CBC W/AUTO [id number] 08:25:00 Test Item Value Reference Range Interpretation Comments WHITE BLOOD CELL (test code = 17.9 x10 3/uL 4.5-11.0 H WBC) RED BLOOD CELL (test code = 2.64 x10 6/uL 4.00-5.60 L RBC) HEMOGLOBIN (test code = HGB) 7.3 g/dL 12.5-16.9 L HEMATOCRIT (test code = HCT) 22.6 % 37.5-50.7 L MEAN CELL VOLUME (test code = 85.6 fL 81.0-99.0 N MCV) MEAN CELL HGB (test code = 27.7 pg 27.0-33.0 N MCH) MEAN CELL HGB CONCETRATION 32.3 g/dL 33.0-37.0 L (test code = MCHC) RED CELL DISTRIBUTION WIDTH CV 15.1 % 11.5-14.5 H (test code = RDW) RED CELL DISTRIBUTION WIDTH SD 47.0 fL 37.0-54.0 N (test code = RDW-SD) PLATELET COUNT (test code = 226 x10 3/uL 150-400 N PLT) MEAN PLATELET VOLUME (test 10.7 fL 7.0-9.0 H code = MPV) NEUTROPHIL % (test code = NT%) 86.3 % 56.0-77.0 H IMMATURE GRANULOCYTE % (test 0.7 % 0.0-2.0 N code = IG%) LYMPHOCYTE % (test code = LY%) 8.1 % 14.0-32.0 L MONOCYTE % (test code = MO%) 4.3 % 4.8-9.0 L EOSINOPHIL % (test code = EO%) 0.5 % 0.3-3.7 N BASOPHIL % (test code = BA%) 0.1 % 0.0-2.0 N NUCLEATED RBC % (test code = 0.0 % 0-0 N NRBC%) NEUTROPHIL # (test code = NT#) 15.44 x10 3/uL 2.0-7.6 H IMMATURE GRANULOCYTE # (test 0.13 x10 3/uL 0.00-0.03 H code = IG#) LYMPHOCYTE # (test code = LY#) 1.45 x10 3/uL 1.0-3.8 N MONOCYTE # (test code = MO#) 0.77 x10 3/uL 0.1-0.8 N EOSINOPHIL # (test code = EO#) 0.09 x10 3/uL 0.0-0.2 N BASOPHIL # (test code = BA#) 0.02 x10 3/uL 0.0-0.2 N NUCLEATED RBC # (test code = 0.00 x10 3/uL 0.0-0.1 N NRBC#) MANUAL DIFF REQUIRED (test NO code = MDIFF) GLUCOSE [id number] 07:56:00 Test Item Value Reference Range Interpretation Comments GLUCOSE BEDSIDE (test 166 MG/DL 70-110 H Perfor med by certified code = GLUBED) dredge operator at [facility] GLUCOSE [id number] 21:55:00 Test Item Value Reference Range Interpretation Comments GLUCOSE BEDSIDE (test 140 MG/DL 70-110 H Perfor med by certified code = GLUBED) dredge operator at [facility] GLUCOSE [id number] 17:59:00 Test Item Value Reference Range Interpretation Comments GLUCOSE BEDSIDE (test 136 MG/DL 70-110 H Perfor med by certified code = GLUBED) dredge operator at [facility] [id number] 17:29:00 Test Item Value Reference Range Interpretation Comments VANCOMYCIN (test code = VANCO) 9.6 mcg/mL GLUCOSE [id number] 12:11:00 Test Item Value Reference Range Interpretation Comments GLUCOSE BEDSIDE (test 129 MG/DL 70-110 H Perfor med by certified code = GLUBED) dredge operator at [facility] GLUCOSE [id number] 08:28:00 Test Item Value Reference Range Interpretation Comments GLUCOSE BEDSIDE (test 195 MG/DL 70-110 H Perfor med by certified code = GLUBED) dredge operator at [facility] CBC W/AUTO [id number] 07:32:00 Test Item Value Reference Range Interpretation Comments WHITE BLOOD CELL (test code = 16.3 x10 3/uL 4.5-11.0 H WBC) RED BLOOD CELL (test code = 2.71 x10 6/uL 4.00-5.60 L RBC) HEMOGLOBIN (test code = HGB) 7.4 g/dL 12.5-16.9 L HEMATOCRIT (test code = HCT) 22.7 % 37.5-50.7 L MEAN CELL VOLUME (test code = 83.8 fL 81.0-99.0 N MCV) MEAN CELL HGB (test code = 27.3 pg 27.0-33.0 N MCH) MEAN CELL HGB CONCETRATION 32.6 g/dL 33.0-37.0 L (test code = MCHC) RED CELL DISTRIBUTION WIDTH CV 14.9 % 11.5-14.5 H (test code = RDW) RED CELL DISTRIBUTION WIDTH SD 45.4 fL 37.0-54.0 N (test code = RDW-SD) PLATELET COUNT (test code = 212 x10 3/uL 150-400 N PLT) MEAN PLATELET VOLUME (test 10.4 fL 7.0-9.0 H code = MPV) NEUTROPHIL % (test code = NT%) 85.7 % 56.0-77.0 H IMMATURE GRANULOCYTE % (test 1.2 % 0.0-2.0 N code = IG%) LYMPHOCYTE % (test code = LY%) 7.7 % 14.0-32.0 L MONOCYTE % (test code = MO%) 4.7 % 4.8-9.0 L EOSINOPHIL % (test code = EO%) 0.6 % 0.3-3.7 N BASOPHIL % (test code = BA%) 0.1 % 0.0-2.0 N NUCLEATED RBC % (test code = 0.0 % 0-0 N NRBC%) NEUTROPHIL # (test code = NT#) 13.99 x10 3/uL 2.0-7.6 H IMMATURE GRANULOCYTE # (test 0.20 x10 3/uL 0.00-0.03 H code = IG#) LYMPHOCYTE # (test code = LY#) 1.25 x10 3/uL 1.0-3.8 N MONOCYTE # (test code = MO#) 0.76 x10 3/uL 0.1-0.8 N EOSINOPHIL # (test code = EO#) 0.09 x10 3/uL 0.0-0.2 N BASOPHIL # (test code = BA#) 0.02 x10 3/uL 0.0-0.2 N NUCLEATED RBC # (test code = 0.00 x10 3/uL 0.0-0.1 N NRBC#) MANUAL DIFF REQUIRED (test NO code = MDIFF) COMPREHENSIVE METABOLIC [id number] 07:09:00 Test Item Value Reference Range Interpretation Comments SODIUM (test code = 133 mEq/L 134-147 L NA) POTASSIUM (test code 4.4 mEq/L 3.4-5.0 N = K) CHLORIDE (test code 107 mEq/L 100-108 N = CL) CARBON DIOXIDE (test 22 mEq/l 21-33 N code = CO2) ANION GAP (test code 9 0-20 N = GAP) GLUCOSE (test code = 203 mg/dL 70-110 H GLU) BLOOD UREA NITROGEN 38 mg/dL 7-18 H (test code = BUN) GLOMERULAR 63.7 90-95 L The Glomerular FILTRATION RATE Filtration R ate is a (test code = GFR) calculated parameterbased on serum Creatinin e, patient age and sex. GFR valuesless than 60 mL/min/1.73 squ are meters are gissell cative ofChronic Kidne y Disease. Values less than 15 mL/min/1.73squa re meters indicate Kidney failure. The calculation for GFR is based on the CK D-EPI (2020) calculat ion. This formulais race indifferent and is the recommended for rodrigo for [facility]by the [facility].The GFR will not calculate i f the sex is unknown or if thepatient's ag e is <18 years. CREATININE (test 1.3 mg/dL 0.6-1.3 N code = CREAT) TOTAL PROTEIN (test 5.8 g/dL 6.4-8.2 L code = PROT) ALBUMIN (test code = 1.50 g/dL 3.4-5.0 L ALB) CALCIUM (test code = 7.5 mg/dL 8.0-10.5 L CA) BILIRUBIN TOTAL 0.60 mg/dL 0.0-1.0 N (test code = BILT) SGOT/AST (test code 35 IUnit/L 15-37 N = AST) SGPT/ALT (test code 18 IUnit/L 30-65 L = ALT) ALKALINE PHOSPHATASE 176 IUnit/L 20-125 H TOTAL (test code = ALKP) [id number] 07:09:00 Test Item Value Reference Range Interpretation Comments PHOSPHOROUS (test code = PHOS) 4.1 MG/DL 2.5-4.9 N [id number] 07:09:00 Test Item Value Reference Range Interpretation Comments MAGNESIUM (test code = MAG) 1.80 mg/dL 1.80-2.40 N CALCIUM [id number] 07:09:00 Test Item Value Reference Range Interpretation Comments CALCIUM IONIZED (test code = KARLA) 1.09 MMOL/L 1.09-1.30 N GLUCOSE [id number] 03:18:00 Test Item Value Reference Range Interpretation Comments GLUCOSE BEDSIDE (test 189 MG/DL 70-110 H Perfor med by certified code = GLUBED) dredge operator at [facility] GLUCOSE [id number] 21:11:00 Test Item Value Reference Range Interpretation Comments GLUCOSE BEDSIDE (test 161 MG/DL 70-110 H Perfor med by certified code = GLUBED) dredge operator at [facility] GLUCOSE [id number] 19:43:00 Test Item Value Reference Range Interpretation Comments GLUCOSE BEDSIDE (test 146 MG/DL 70-110 H Perfor med by certified code = GLUBED) dredge operator at [facility] GLUCOSE [id number] 16:31:00 Test Item Value Reference Range Interpretation Comments GLUCOSE BEDSIDE (test 126 MG/DL 70-110 H Perfor med by certified code = GLUBED) dredge operator at [facility] GLUCOSE [id number] 13:36:00 Test Item Value Reference Range Interpretation Comments GLUCOSE BEDSIDE (test 102 MG/DL 70-110 N Perfor med by certified code = GLUBED) dredge operator at [facility] GLUCOSE [id number] 12:40:00 Test Item Value Reference Range Interpretation Comments GLUCOSE BEDSIDE (test 67 MG/DL 70-110 L Perfor med by certified code = GLUBED) dredge operator at [facility] CBC W/AUTO [id number] 11:30:00 Test Item Value Reference Range Interpretation Comments WHITE BLOOD CELL (test code = 17.6 x10 3/uL 4.5-11.0 H WBC) RED BLOOD CELL (test code = 2.52 x10 6/uL 4.00-5.60 L RBC) HEMOGLOBIN (test code = HGB) 6.7 g/dL 12.5-16.9 L HEMATOCRIT (test code = HCT) 20.8 % 37.5-50.7 L MEAN CELL VOLUME (test code = 82.5 fL 81.0-99.0 N MCV) MEAN CELL HGB (test code = MCH) 26.6 pg 27.0-33.0 L MEAN CELL HGB CONCETRATION 32.2 g/dL 33.0-37.0 L (test code = MCHC) RED CELL DISTRIBUTION WIDTH CV 15.0 % 11.5-14.5 H (test code = RDW) RED CELL DISTRIBUTION WIDTH SD 45.5 fL 37.0-54.0 N (test code = RDW-SD) PLATELET COUNT (test code = 175 x10 3/uL 150-400 N PLT) MEAN PLATELET VOLUME (test code 10.3 fL 7.0-9.0 H = MPV) NEUTROPHIL % (test code = NT%) % 56.0-77.0 LYMPHOCYTE % (test code = LY%) % 14.0-32.0 NEUTROPHIL # (test code = NT#) x10 3/uL 2.0-7.6 LYMPHOCYTE # (test code = LY#) x10 3/uL 1.0-3.8 MANUAL DIFF REQUIRED (test code YES = MDIFF) WBC [id number] 11:30:00 Test Item Value Reference Range Interpretation Comments BAND NEUTROPHIL (test code 0.0 % 0.0-10.0 N = BAND) ANISOCYTOSIS (test code = NORMAL ANISO) PLATELET ESTIMATE (test Adequate THOUSAND ADEQUATE code = PLTEST) SEGMENTED NEUTROPHILS (test 89 % 37-69 H code = SEG) LYMPHOCYTE (test code = 8 % 23-55 L LYMPH) MONOCYTE (test code = MON) 2 % 0-10 N MYELOCYTE (test code = 1 % 0.0-0.0 H MYELO) POLYCHROMASIA (test code = 1+ POLC) GLUCOSE [id number] 08:23:00 Test Item Value Reference Range Interpretation Comments GLUCOSE BEDSIDE (test 120 MG/DL 70-110 H Perfor med by certified code = GLUBED) dredge operator at [facility] COMPREHENSIVE METABOLIC [id number] 03:59:00 Test Item Value Reference Range Interpretation Comments SODIUM (test code = 133 mEq/L 134-147 L NA) POTASSIUM (test code 3.8 mEq/L 3.4-5.0 N = K) CHLORIDE (test code 105 mEq/L 100-108 N = CL) CARBON DIOXIDE (test 19 mEq/l 21-33 L code = CO2) ANION GAP (test code 13 0-20 N = GAP) GLUCOSE (test code = 155 mg/dL 70-110 H GLU) BLOOD UREA NITROGEN 45 mg/dL 7-18 H (test code = BUN) GLOMERULAR 53.6 90-95 L The Glomerular FILTRATION RATE Filtration R ate is a (test code = GFR) calculated parameterbased on serum Creatinin e, patient age and sex. GFR valuesless than 60 mL/min/1.73 squ are meters are gissell cative ofChronic Kidne y Disease. Values less than 15 mL/min/1.73squa re meters indicate Kidney failure. The calculation for GFR is based on the CK D-EPI (2020) calculat ion. This formulais race indifferent and is the recommended for rodrigo for GFRby the [facility] for Ad[facility].The GFR will not calculate i f the sex is unknown or if thepatient's ag e is <18 years. CREATININE (test 1.5 mg/dL 0.6-1.3 H code = CREAT) TOTAL PROTEIN (test 5.8 g/dL 6.4-8.2 L code = PROT) ALBUMIN (test code = 1.60 g/dL 3.4-5.0 L ALB) CALCIUM (test code = 6.8 mg/dL 8.0-10.5 L CA) BILIRUBIN TOTAL 0.80 mg/dL 0.0-1.0 N (test code = BILT) SGOT/AST (test code 36 IUnit/L 15-37 N = AST) SGPT/ALT (test code 19 IUnit/L 30-65 L = ALT) ALKALINE PHOSPHATASE 163 IUnit/L 20-125 H TOTAL (test code = ALKP) [id number] 03:59:00 Test Item Value Reference Range Interpretation Comments PHOSPHOROUS (test code = PHOS) 4.7 MG/DL 2.5-4.9 [id number] 03:59:00 Test Item Value Reference Range Interpretation Comments MAGNESIUM (test code = MAG) 1.71 mg/dL 1.80-2.40 L CALCIUM [id number] 03:59:00 Test Item Value Reference Range Interpretation Comments CALCIUM IONIZED (test code = KARLA) 1.06 MMOL/L 1.09-1.30 L [id number] 03:54:00 Test Item Value Reference Range Interpretation Comments VANCOMYCIN (test code = VANCO) 15.3 mcg/mL GLUCOSE [id number] 19:53:00 Test Item Value Reference Range Interpretation Comments GLUCOSE BEDSIDE (test 163 MG/DL 70-110 H Perfor med by certified code = GLUBED) dredge operator at [facility] GLUCOSE [id number] 16:45:00 Test Item Value Reference Range Interpretation Comments GLUCOSE BEDSIDE (test 146 MG/DL 70-110 H Perfor med by certified code = GLUBED) dredge operator at [facility] GLUCOSE [id number] 11:58:00 Test Item Value Reference Range Interpretation Comments GLUCOSE BEDSIDE (test 92 MG/DL 70-110 N Perfor med by certified code = GLUBED) dredge operator at [facility] [id number] 09:36:00 Test Item Value Reference Range Interpretation Comments VANCOMYCIN (test code = VANCO) 19.7 mcg/mL GLUCOSE [id number] 07:58:00 Test Item Value Reference Range Interpretation Comments GLUCOSE BEDSIDE (test 76 MG/DL 70-110 N Perfor med by certified code = GLUBED) dredge operator at [facility] CBC W/AUTO [id number] 06:22:00 Test Item Value Reference Range Interpretation Comments WHITE BLOOD CELL 19.5 x10 3/uL 4.5-11.0 H (test code = WBC) RED BLOOD CELL (test 2.61 x10 6/uL 4.00-5.60 L code = RBC) HEMOGLOBIN (test code 7.1 g/dL 12.5-16.9 L = HGB) HEMATOCRIT (test code 21.6 % 37.5-50.7 L = HCT) MEAN CELL VOLUME 82.8 fL 81.0-99.0 N (test code = MCV) MEAN CELL HGB (test 27.2 pg 27.0-33.0 N code = MCH) MEAN CELL HGB 32.9 g/dL 33.0-37.0 L CONCETRATION (test code = MCHC) RED CELL DISTRIBUTION 15.0 % 11.5-14.5 H WIDTH CV (test code = RDW) RED CELL DISTRIBUTION 45.2 fL 37.0-54.0 N WIDTH SD (test code = RDW-SD) PLATELET COUNT (test 128 x10 3/uL 150-400 L code = PLT) MEAN PLATELET VOLUME 10.8 fL 7.0-9.0 H (test code = MPV) NEUTROPHIL % (test 82.1 % 56.0-77.0 H code = NT%) LYMPHOCYTE % (test 9.0 % 14.0-32.0 L code = LY%) NEUTROPHIL # (test 15.98 x10 3/uL 2.0-7.6 H code = NT#) LYMPHOCYTE # (test 1.76 x10 3/uL 1.0-3.8 N code = LY#) MANUAL DIFF REQUIRED NO SLIDE R MAMEWED, (test code = MDIFF) CONSISTE NT WITH AUTO DIFF. IMMATURE GRANULOCYTE 3.6 % 0.0-2.0 H % (test code = IG%) MONOCYTE % (test code 4.8 % 4.8-9.0 N = MO%) EOSINOPHIL % (test 0.4 % 0.3-3.7 N code = EO%) BASOPHIL % (test code 0.1 % 0.0-2.0 N = BA%) NUCLEATED RBC % (test 0.0 % 0-0 N code = NRBC%) IMMATURE GRANULOCYTE 0.70 x10 3/uL 0.00-0.03 H # (test code = IG#) MONOCYTE # (test code 0.93 x10 3/uL 0.1-0.8 H = MO#) EOSINOPHIL # (test 0.08 x10 3/uL 0.0-0.2 N code = EO#) BASOPHIL # (test code 0.02 x10 3/uL 0.0-0.2 N = BA#) NUCLEATED RBC # (test 0.00 x10 3/uL 0.0-0.1 N code = NRBC#) COMPREHENSIVE METABOLIC [id number] 06:10:00 Test Item Value Reference Range Interpretation Comments SODIUM (test code = 133 mEq/L 134-147 L NA) POTASSIUM (test code 4.1 mEq/L 3.4-5.0 N = K) CHLORIDE (test code 105 mEq/L 100-108 N = CL) CARBON DIOXIDE (test 21 mEq/l 21-33 N code = CO2) ANION GAP (test code 11 0-20 N = GAP) GLUCOSE (test code = 89 mg/dL 70-110 GLU) BLOOD UREA NITROGEN 37 mg/dL 7-18 H (test code = BUN) GLOMERULAR 63.7 90-95 L The Glomerular FILTRATION RATE Filtration R ate is a (test code = GFR) calculated parameterbased on serum Creatinin e, patient age and sex. GFR valuesless than 60 mL/min/1.73 squ are meters are gissell cative ofChronic Kidne y Disease. Values less than 15 mL/min/1.73squa re meters indicate Kidney failure. The calculation for GFR is based on the CK D-EPI (2020) calculat ion. This formulais race indifferent and is the recommended for rodrigo for GFRby the N ational Kidney Foundati on for Adults.The GFR will not calculate i f the sex is unknown or if thepatient's ag e is <18 years. CREATININE (test 1.3 mg/dL 0.6-1.3 N code = CREAT) TOTAL PROTEIN (test 5.6 g/dL 6.4-8.2 L code = PROT) ALBUMIN (test code = 1.70 g/dL 3.4-5.0 L ALB) CALCIUM (test code = 7.2 mg/dL 8.0-10.5 L CA) BILIRUBIN TOTAL 0.80 mg/dL 0.0-1.0 (test code = BILT) SGOT/AST (test code 30 IUnit/L 15-37 N = AST) SGPT/ALT (test code 15 IUnit/L 30-65 L = ALT) ALKALINE PHOSPHATASE 171 IUnit/L 20-125 H TOTAL (test code = ALKP) [id number] 06:10:00 Test Item Value Reference Range Interpretation Comments PHOSPHOROUS (test code = PHOS) 3.4 MG/DL 2.5-4.9 [id number] 06:10:00 Test Item Value Reference Range Interpretation Comments MAGNESIUM (test code = MAG) 1.70 mg/dL 1.80-2.40 L CALCIUM [id number] 06:10:00 Test Item Value Reference Range Interpretation Comments CALCIUM IONIZED (test code = KARLA) 1.00 MMOL/L 1.09-1.30 L - MRI PELVIS W/O [id number] 00:00:00 [facility] : 1965 Sex: M FAX: Wilbert Krause MD [phone] [place]: St: ADM FAX: David Colvin MD [phone] ------ Name: KARMA ROWLAND [facility] : 1965 Age/S: 56/M [address] [place] [address] Unit #: [id number] Loc: G.M325 [place] [address] Phys: David Bass MD Acct: [id number] Dis Date: Status: ADM IN PHONE #: [phone] Exam Date: 08/21/20222115 FAX #: [phone] Reason: assess for prostate abscess vs lesion EXAMS: CPT CODE: [id number] MRI PELVIS W/O CON 69496 PROCEDURE INFORMATION: Exam: MR Pelvis Without Contrast Exam date and time: 08/18/2022 8:32 PM Age: 56 years old Clinical indication: Other: Assess for prostate abscess vs lesion TECHNIQUE: Imaging protocol: Magnetic resonance imaging of the pelvis without contrast. COMPARISON: CT ABD PELVIS W/CONT 08/18/2022 3:36 AM FINDINGS: Intraperitoneal space: Examination is severely degraded by abdominal breathing and patient motion artifact, severely lowering sensitivity and specificity of the study. No free pelvic fluid. Urinary bladder: No bladder filling defects or diverticula. Reproductive: Approximately 4.7 x 3.6 x 2.7 cm lobulated focus of liquefaction isidentified centered at the level of the left seminal vesicle, corresponding to the area of hypodensity detected by CT. Diffusion sequences could not be obtained due to motion limiting sensitivity. MildT2 hyperintense surrounding soft tissue edema is demonstrated. Small caliber right seminal vesicle without focal lesion. The prostate gland measures roughly 4.5 x 3.6 x 3.5 cm (29 cc) with the left posterolateral peripheral zone inseparable from the described T2 hyperintense collection. Capsule indistinctness is noted at this level. Otherwise grossly preserved transitional zone and right peripheral z one signal. Lymph nodes: No pelvic adenopathy. 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 No joint effusions. No destructive bone lesion. Soft tissues: No inguinal hernia or masses. IMPRESSION: 1. Markedly limited exam ination by motion artifact abdominal breathing, severely lowering sensitivity and specificity of thestudy. 2. Roughly 4.7 cm area of liquefaction in the left seminal vesicle suspicious for abscess, inseparable from the left posterolateral prostate capsule and peripheral zone. Recommend MR follow-up after antibiotic therapy to assess for evolution. 3. Normal size prostate with otherwise preserved transitional zone and right peripheral zone signal. 4. No pelvic adenopathy or free fluid. 5. Unremarkable bladder. PAGE 1 Signed Report (CONTINUED) FAX: Wilbert Krause MD [phone] [place]: St: ADMFAX: David Colvin MD [phone] Name: KARMA ROWLAND [facility] : 1965 Age/S: 56/M [address] [place] [address] Blvd Unit #: [id number] Loc: G.M325 [place] [address] Phys: David Bass MD Acct: [id number] Dis Date: Status: ADM IN PHONE #: [phone] Exam Date: 08/21/20222115 FAX #: [phone] Reason: assess for prostate abscess vs lesion EXAMS: CPT CODE: [id number] MRI PELVIS W/O CON [id number] (Continued) at 0830 Reported and signed by: Cezar Wakefield M.D. CC: Wilbert Ramires MD; David Bass MD Technologist: Guero Hernandez RT(R)(CT) Trnscrd Date/Time/By: 08/22/2022 (829) : By: [email or web address] Orig Print D/T:S: 08/22/2022 (829) PAGE 2 Signed ReportVANCOMYCIN [id number] 21:01:00 Test Item Value Reference Range Interpretation Comments VANCOMYCIN TROUGH 27.2 mcg/mL 10.0-20.0 HH 10-15 mcg/ mL - (test code = VANCT) Cellulit is, Urinary Tract Infection . 15-20 mcg/mL - Bacteremia, Infective Endocarditis, Meningitis, Osteomyelitis, Pneumonia, Maru re Skin/Soft-Tissu e Infection, Spin al Abscess. COMMENTS: Please draw 30 minutes BEFORE giving dose of vancomycinGLUCOSE BEDSIDE 2022-08-21 20:26:00 Test Item Value Reference Range Interpretation Comments GLUCOSE BEDSIDE (test 112 MG/DL 70-110 H Perfor med by certified code = GLUBED) dredge operator at [facility] GLUCOSE [id number] 16:36:00 Test Item Value Reference Range Interpretation Comments GLUCOSE BEDSIDE (test 104 MG/DL 70-110 N Perfor med by certified code = GLUBED) dredge operator at [facility] GLUCOSE [id number] 14:51:00 Test Item Value Reference Range Interpretation Comments GLUCOSE BEDSIDE > 600 MG/DL 70-110 H Performed by certified (test code = GLUBED) operato r at [facility] VANCOMYCIN [id number] 13:52:00 Test Item Value Reference Range Interpretation Comments VANCOMYCIN PEAK (test code = 30.7 MCG/ML 30-40 N VANCP) GLUCOSE [id number] 12:23:00 Test Item Value Reference Range Interpretation Comments GLUCOSE BEDSIDE (test 597 MG/DL 70-110 H Perfor med by certified code = GLUBED) dredge operator at [facility] GLUCOSE [id number] 11:20:00 Test Item Value Reference Range Interpretation Comments GLUCOSE BEDSIDE (test 96 MG/DL 70-110 N Perfor med by certified code = GLUBED) dredge operator at [facility] GLUCOSE [id number] 08:13:00 Test Item Value Reference Range Interpretation Comments GLUCOSE BEDSIDE (test 123 MG/DL 70-110 H Perfor med by certified code = GLUBED) dredge operator at [facility] CBC W/AUTO [id number] 06:04:00 Test Item Value Reference Range Interpretation Comments WHITE BLOOD CELL (test code = 19.0 x10 3/uL 4.5-11.0 H WBC) RED BLOOD CELL (test code = 2.78 x10 6/uL 4.00-5.60 L RBC) HEMOGLOBIN (test code = HGB) 7.4 g/dL 12.5-16.9 L HEMATOCRIT (test code = HCT) 23.0 % 37.5-50.7 L MEAN CELL VOLUME (test code = 82.7 fL 81.0-99.0 N MCV) MEAN CELL HGB (test code = MCH) 26.6 pg 27.0-33.0 L MEAN CELL HGB CONCETRATION 32.2 g/dL 33.0-37.0 L (test code = MCHC) RED CELL DISTRIBUTION WIDTH CV 15.0 % 11.5-14.5 H (test code = RDW) RED CELL DISTRIBUTION WIDTH SD 45.7 fL 37.0-54.0 N (test code = RDW-SD) PLATELET COUNT (test code = 155 x10 3/uL 150-400 N PLT) MEAN PLATELET VOLUME (test code 10.1 fL 7.0-9.0 H = MPV) NEUTROPHIL % (test code = NT%) % 56.0-77.0 LYMPHOCYTE % (test code = LY%) % 14.0-32.0 NEUTROPHIL # (test code = NT#) x10 3/uL 2.0-7.6 LYMPHOCYTE # (test code = LY#) x10 3/uL 1.0-3.8 MANUAL DIFF REQUIRED (test code YES = MDIFF) WBC [id number] 06:04:00 Test Item Value Reference Range Interpretation Comments BAND NEUTROPHIL (test code 11.8 % 0.0-10.0 H = BAND) ANISOCYTOSIS (test code = 2+ ANISO) PLATELET ESTIMATE (test Adequate THOUSAND ADEQUATE code = PLTEST) SEGMENTED NEUTROPHILS (test 79.1 % 37-69 H code = SEG) LYMPHOCYTE (test code = 3.6 % 23-55 L LYMPH) MONOCYTE (test code = MON) 4.6 % 0-10 N BASOPHIL (test code = BASO) 0.9 % 0.0-2.0 N POLYCHROMASIA (test code = 3+ POLC) MACROCYTOSIS (test code = 2+ MACR) PLATELET MORPHOLOGY (test LARGE PLATELETS code = PLTMORPH) COMPREHENSIVE METABOLIC [id number] 05:23:00 Test Item Value Reference Range Interpretation Comments SODIUM (test code = 134 mEq/L 134-147 N NA) POTASSIUM (test code 3.5 mEq/L 3.4-5.0 N = K) CHLORIDE (test code 106 mEq/L 100-108 N = CL) CARBON DIOXIDE (test 22 mEq/l 21-33 N code = CO2) ANION GAP (test code 10 0-20 N = GAP) GLUCOSE (test code = 120 mg/dL 70-110 H GLU) BLOOD UREA NITROGEN 37 mg/dL 7-18 H (test code = BUN) GLOMERULAR 70.1 90-95 L The Glomerular FILTRATION RATE Filtration R ate is a (test code = GFR) calculated parameterbased on serum Creatinin e, patient age and sex. GFR valuesless than 60 mL/min/1.73 squ are meters are gissell cative ofChronic Kidne y Disease. Values less than 15 mL/min/1.73squa re meters indicate Kidney failure. The calculation for GFR is based on the CK D-EPI (2020) calculat ion. This formulais race indifferent and is the recommended for rodrigo for GFRby the N ational Kidney Foundati on for Adults.The GFR will not calculate i f the sex is unknown or if thepatient's ag e is <18 years. CREATININE (test 1.2 mg/dL 0.6-1.3 N code = CREAT) TOTAL PROTEIN (test 5.5 g/dL 6.4-8.2 L code = PROT) ALBUMIN (test code = 1.90 g/dL 3.4-5.0 L ALB) CALCIUM (test code = 7.4 mg/dL 8.0-10.5 L CA) BILIRUBIN TOTAL 0.60 mg/dL 0.0-1.0 N (test code = BILT) SGOT/AST (test code 31 IUnit/L 15-37 N = AST) SGPT/ALT (test code 18 IUnit/L 30-65 L = ALT) ALKALINE PHOSPHATASE 172 IUnit/L 20-125 H TOTAL (test code = ALKP) [id number] 05:23:00 Test Item Value Reference Range Interpretation Comments PHOSPHOROUS (test code = PHOS) 2.6 MG/DL 2.5-4.9 N [id number] 05:23:00 Test Item Value Reference Range Interpretation Comments MAGNESIUM (test code = MAG) 1.65 mg/dL 1.80-2.40 L CALCIUM [id number] 05:23:00 Test Item Value Reference Range Interpretation Comments CALCIUM IONIZED (test code = KARLA) 1.02 MMOL/L 1.09-1.30 L - MRI LOW EXT W/O CONT [id number] 00:00:00 [facility] : 1965 Sex: M FAX: Wilbert Krause MD [phone] [place]: St: ADM FAX: Andrew London MD Name: KARMA ROWLAND [facility] : 1965 Age/S: 56/M [address] [place] [address] Unit #: [id number] Loc: G.M325 [place] [address] Phys:Andrew London MD Acct: [id number] Dis Date: Status: ADM IN PHONE #: [phone] Exam Date: 08/21/20222115 FAX #: [phone] Reason: osteomyelitis EXAMS: CPT CODE: [id number] MRI LOW EXT W/[place] [id number] PROCEDURE INFORMATION: Exam: MR Right Lower Extremity Other Than Joint Without Contrast; Hindfoot Exam date and time: 08/21/2022 12:09 PM Age: 56 years old Clinical indication: Other: Osteomyelitis TECHNIQUE: Imaging protocol: Magnetic resonance imaging of the right lower extremity other than joint without contrast. Exam focused on the hindfoot. COMPARISON: CT LOWER EXTRM W/O C RT 08/18/2022 6:29 AM Findings: Large areas of deep ulceration along the medial and lateral soft tissues of the hindfoot are seen. Multifocal geographic areas of hypointense T1/hyperintense STIR marrow signal abnormality throughout the calcaneus, talus, and navicular bone are seen. No discrete osseous erosion is noted. Os trigonum is noted. 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 Synovitis throughout the sinus tarsi is seen. The Achilles tendon and plantar fascia are intact. The medial flexor, lateral, and anterior tendons about the ankle are intact. Deltoid ligament complex is intact. Anterior talofibular, posterior talofibular, and calcaneofibular ligaments are intact. Syndesmotic ligamentsare intact. Moderate-severe inflammatory signal of the circumferential soft tissues about the ankleextending along the dorsum of the foot is seen. Dorsal skin blister of the forefoot is seen measuring approximately 1.2 x 1.9 x 0.6 cm. Lobulated, ill- defined fluid collection in the plantar musculature of the foot measuring approximately 3.2 x 9.7 x 1.7 cm is seen. Impression: 1. Large areas of deep ulceration of the medial and lateral soft tissues of the hindfoot. 2. Findings compatible with osteomyelitis of the talus, calcaneus, and navicular bone. 3. Lobulated, ill-defined 3.2 x 9.7 x 1.7 cm fluid collection in the plantar musculature of the foot. 4. 1.2 x 1.9 x 0.6 cm dorsal skin blister of the forefoot. at 1356 Reported and signed by: Abel Austin M.D. PAGE 1 Signed Report (CONTINUED) FAX: Wilbert Krause MD [phone] [place]: St: ADM FAX: Andrew London MD Name: KARMA ROWLAND [facility] : 1965 Age/S: 56/M [address] [place] [address] Unit #: [id number] Loc: .25 [place] [address] Phys: Andrew London MD Acct: [id number] Dis Date: Status: ADM IN PHONE #: [phone] Exam Date: 08/21/20222115 FAX #: [phone] Reason: osteomyelitis EXAMS: CPT CODE: [id number] MRI LOW EXT W/[place] [id number] (Continued) CC: Wilbert Ramires MD; Andrew London MD Technologist: RT Haile(R)(CT) Trnlard Date/Time/By: 08/21/2022 (4721) : By: TipSBL Orig Print D/T: S: 08/21/2022 (4332) PAGE 2 Signed ReportVANCOMYCIN [id number] 23:25:00 Test Item Value Reference Range Interpretation Comments VANCOMYCIN PEAK (test code = 36.0 MCG/ML 30-40 N VANCP) COMMENTS: Please draw one hour AFTER THE END of vancomycin infusionGLUCOSE [id number] 21:23:00 Test Item Value Reference Range Interpretation Comments GLUCOSE BEDSIDE (test 123 MG/DL 70-110 H Perfor med by certified code = GLUBED) dredge operator at [facility] GLUCOSE [id number] 16:48:00 Test Item Value Reference Range Interpretation Comments GLUCOSE BEDSIDE (test 201 MG/DL 70-110 H Perfor med by certified code = GLUBED) dredge operator at [facility] [id number] 14:38:00 Test Item Value Reference Range Interpretation Comments MAGNESIUM (test code = MAG) 2.05 mg/dL 1.80-2.40 N CALCIUM [id number] 14:38:00 Test Item Value Reference Range Interpretation Comments CALCIUM IONIZED (test code = KARLA) 1.04 MMOL/L 1.09-1.30 L COMPREHENSIVE METABOLIC [id number] 14:38:00 Test Item Value Reference Range Interpretation Comments SODIUM (test code = 137 mEq/L 134-147 N NA) POTASSIUM (test code 3.7 mEq/L 3.4-5.0 N = K) CHLORIDE (test code 107 mEq/L 100-108 N = CL) CARBON DIOXIDE (test 20 mEq/l 21-33 L code = CO2) ANION GAP (test code 14 0-20 N = GAP) GLUCOSE (test code = 212 mg/dL 70-110 H GLU) BLOOD UREA NITROGEN 44 mg/dL 7-18 H (test code = BUN) GLOMERULAR 70.1 90-95 L The Glomerular FILTRATION RATE Filtration R ate is a (test code = GFR) calculated parameterbased on serum Creatinin e, patient age and sex. GFR valuesless than 60 mL/min/1.73 squ are meters are gissell cative ofChronic Kidne y Disease. Values less than 15 mL/min/1.73squa re meters indicate Kidney failure. The calculation for GFR is based on the CK D-EPI (2020) calculat ion. This formulais race indifferent and is the recommended for rodrigo for GFRby the N [facility] Kid[facility] Foundati on for Adults.The GFR will not calculate i f the sex is unknown or if thepatient's ag e is <18 years. CREATININE (test 1.2 mg/dL 0.6-1.3 N code = CREAT) TOTAL PROTEIN (test 5.7 g/dL 6.4-8.2 L code = PROT) ALBUMIN (test code = 2.00 g/dL 3.4-5.0 L ALB) CALCIUM (test code = 7.3 mg/dL 8.0-10.5 L CA) BILIRUBIN TOTAL 0.60 mg/dL 0.0-1.0 N (test code = BILT) SGOT/AST (test code 51 IUnit/L 15-37 H = AST) SGPT/ALT (test code 22 IUnit/L 30-65 L = ALT) ALKALINE PHOSPHATASE 178 IUnit/L 20-125 H TOTAL (test code = ALKP) [id number] 14:38:00 Test Item Value Reference Range Interpretation Comments PHOSPHOROUS (test code = PHOS) 3.4 MG/DL 2.5-4.9 N GLUCOSE [id number] 11:18:00 Test Item Value Reference Range Interpretation Comments GLUCOSE BEDSIDE (test 173 MG/DL 70-110 H Perfor med by certified code = GLUBED) dredge operator at [facility] CBC W/AUTO [id number] 11:03:00 Test Item Value Reference Range Interpretation Comments WHITE BLOOD CELL 22.8 x10 3/uL 4.5-11.0 H (test code = WBC) RED BLOOD CELL (test 2.63 x10 6/uL 4.00-5.60 L code = RBC) HEMOGLOBIN (test code 7.1 g/dL 12.5-16.9 L = HGB) HEMATOCRIT (test code 21.3 % 37.5-50.7 L = HCT) MEAN CELL VOLUME 81.0 fL 81.0-99.0 N (test code = MCV) MEAN CELL HGB (test 27.0 pg 27.0-33.0 N code = MCH) MEAN CELL HGB 33.3 g/dL 33.0-37.0 N CONCETRATION (test code = MCHC) RED CELL DISTRIBUTION 14.7 % 11.5-14.5 H WIDTH CV (test code = RDW) RED CELL DISTRIBUTION 43.4 fL 37.0-54.0 N WIDTH SD (test code = RDW-SD) PLATELET COUNT (test 190 x10 3/uL 150-400 N code = PLT) MEAN PLATELET VOLUME 10.0 fL 7.0-9.0 H (test code = MPV) NEUTROPHIL % (test 87.2 % 56.0-77.0 H code = NT%) LYMPHOCYTE % (test 4.8 % 14.0-32.0 L code = LY%) NEUTROPHIL # (test 19.90 x10 3/uL 2.0-7.6 H code = NT#) LYMPHOCYTE # (test 1.10 x10 3/uL 1.0-3.8 N code = LY#) MANUAL DIFF REQUIRED NO SLIDE R EVIEWED, (test code = MDIFF) CONSISTE NT WITH AUTO DIFF. IMMATURE GRANULOCYTE 4.9 % 0.0-2.0 H % (test code = IG%) MONOCYTE % (test code 2.9 % 4.8-9.0 L = MO%) EOSINOPHIL % (test 0.0 % 0.3-3.7 L code = EO%) BASOPHIL % (test code 0.2 % 0.0-2.0 N = BA%) NUCLEATED RBC % (test 0.0 % 0-0 N code = NRBC%) IMMATURE GRANULOCYTE 1.12 x10 3/uL 0.00-0.03 H # (test code = IG#) MONOCYTE # (test code 0.66 x10 3/uL 0.1-0.8 N = MO#) EOSINOPHIL # (test 0.00 x10 3/uL 0.0-0.2 N code = EO#) BASOPHIL # (test code 0.04 x10 3/uL 0.0-0.2 N = BA#) NUCLEATED RBC # (test 0.00 x10 3/uL 0.0-0.1 N code = NRBC#) GLUCOSE [id number] 08:10:00 Test Item Value Reference Range Interpretation Comments GLUCOSE BEDSIDE (test 192 MG/DL 70-110 H Perfor med by certified code = GLUBED) dredge operator at [facility] GLUCOSE [id number] 08:10:00 Test Item Value Reference Range Interpretation Comments GLUCOSE BEDSIDE (test 206 MG/DL 70-110 H Perfor med by certified code = GLUBED) dredge operator at [facility] GLUCOSE [id number] 06:40:00 Test Item Value Reference Range Interpretation Comments GLUCOSE BEDSIDE (test 198 MG/DL 70-110 H Perfor med by certified code = GLUBED) dredge operator at [facility] GLUCOSE [id number] 03:14:00 Test Item Value Reference Range Interpretation Comments GLUCOSE BEDSIDE (test 195 MG/DL 70-110 H Perfor med by certified code = GLUBED) dredge operator at [facility] GLUCOSE [id number] 03:14:00 Test Item Value Reference Range Interpretation Comments GLUCOSE BEDSIDE (test 181 MG/DL 70-110 H Perfor med by certified code = GLUBED) dredge operator at [facility] GLUCOSE [id number] 03:14:00 Test Item Value Reference Range Interpretation Comments GLUCOSE BEDSIDE (test 182 MG/DL 70-110 H Perfor med by certified code = GLUBED) dredge operator at [facility] GLUCOSE [id number] 03:14:00 Test Item Value Reference Range Interpretation Comments GLUCOSE BEDSIDE (test 191 MG/DL 70-110 H Perfor med by certified code = GLUBED) dredge operator at [facility] PSA [id number] 03:08:00 Test Item Value Reference Range Interpretation Comments PSA FREE (test 0.04 ng/mL N/A Bassem ECLIA m ethodology. code = PSAF) PSA TOTAL 0.9 ng/mL 0.0-4.0 Bassem ECLIA (test code = methodology.Acc ording to the PSAT) [employer], Se rum PSAshould decrease and re main at undetectable le vels afterradical pr ostatectomy. The AUA defines biochemicalrecu rrence as an initial PSA kitty ue 0.2 ng/mL or greaterfollo wed by a subsequent conf irmatory PSA value 0.2 ng/mL or greater. Values obtained with different assay methods orkits cannot b e used interchangeably . Results cannot beinterp reted as absolute eviden ce of the presence or abs enceof malignant disea se. % FREE PSA 4.4 % See_Comment The table below lists the (test code = probability of prostate PSA%) cancer formen w ith non-suspicious OG results and total PSA b etween4 and 10 ng/mL, by patie nt age (Hi et al , MARIPOSA 1998,279:1542). % Free PSA 50-64 yr 65-75 yr 0.00-10.00% 56% 55% 10.01-1 5.00% 24% 35% 15.01-20.00% 17 % 23% 20.01-25.00% 10 % 20% >25.00% 5% 9%Please not e: Hi et al did not make specific recommendations regarding the use of percent free PSA for any other popul ation of men.Performed A t: [facility]villeRaunyqf[address] [place], [place] [id number] Savage Castro MD Ph:[phone] [Automated mess age] The system which ge nerated this result transmit carlos reference range: (). The reference range was not u sed to interpret this result as normal/abnormal . RENAL FUNCTION [id number] 01:04:00 Test Item Value Reference Range Interpretation Comments SODIUM (test code = 132 mEq/L 134-147 L NA) POTASSIUM (test code 3.7 mEq/L 3.4-5.0 N = K) CHLORIDE (test code = 107 mEq/L 100-108 N CL) CARBON DIOXIDE (test 21 mEq/l 21-33 N code = CO2) ANION GAP (test code 8 0-20 N = GAP) GLUCOSE (test code = 184 mg/dL 70-110 H GLU) BLOOD UREA NITROGEN 41 mg/dL 7-18 H (test code = BUN) GLOMERULAR FILTRATION 70.1 90-95 L The Gl omerular RATE (test code = Filtration Rate is a GFR) calculated parameterbased on serum Creatinine, pat ient age and sex. GFR va luesless than 60 mL/min/ 1.73 square meters a re indicative ofCh ronic Kidney Disease. Values less than 15 mL/min/1.73squa re meters indicate Kidney failure. The calculation for GFR is based on the CK D-EPI (2020) calculat ion. This formulais race indifferent and is the recommended for rodrigo for GFRby the Natio nal Kidney Foundati on for Adults.The GFR will not calculate if th e sex is unknown or if thepatient's ag e is <18 years. CREATININE (test code 1.2 mg/dL 0.6-1.3 N = CREAT) ALBUMIN (test code = 1.70 g/dL 3.4-5.0 L ALB) CALCIUM (test code = 7.1 mg/dL 8.0-10.5 L CA) PHOSPHOROUS (test 3.3 MG/DL 2.5-4.9 N code = PHOS) COMMENTS: Every 6 hours until anion gap </= 12 mEq/L, then every morning [id number] 01:04:00 Test Item Value Reference Range Interpretation Comments MAGNESIUM (test code = MAG) 2.09 mg/dL 1.80-2.40 N COMMENTS: Every 6 hours until anion gap </= 12 mEq/L, then every morningHGB [id number] 23:52:00 Test Item Value Reference Range Interpretation Comments HEMOGLOBIN (test code = HGB) 7.0 g/dL 12.5-16.9 L HEMATOCRIT (test code = HCT) 21.8 % 37.5-50.7 L GLUCOSE [id number] 23:02:00 Test Item Value Reference Range Interpretation Comments GLUCOSE BEDSIDE (test 165 MG/DL 70-110 H Perfor med by certified code = GLUBED) dredge operator at [facility] GLUCOSE [id number] 23:02:00 Test Item Value Reference Range Interpretation Comments GLUCOSE BEDSIDE (test 209 MG/DL 70-110 H Perfor med by certified code = GLUBED) dredge operator at [facility] GLUCOSE [id number] 20:27:00 Test Item Value Reference Range Interpretation Comments GLUCOSE BEDSIDE (test 218 MG/DL 70-110 H Perfor med by certified code = GLUBED) dredge operator at [facility] CBC W/AUTO [id number] 17:47:00 Test Item Value Reference Range Interpretation Comments WHITE BLOOD CELL 20.3 x10 3/uL 4.5-11.0 H (test code = WBC) RED BLOOD CELL (test 2.57 x10 6/uL 4.00-5.60 L code = RBC) HEMOGLOBIN (test code 7.1 g/dL 12.5-16.9 L = HGB) HEMATOCRIT (test code 20.9 % 37.5-50.7 L = HCT) MEAN CELL VOLUME 81.3 fL 81.0-99.0 N (test code = MCV) MEAN CELL HGB (test 27.6 pg 27.0-33.0 N code = MCH) MEAN CELL HGB 34.0 g/dL 33.0-37.0 N CONCETRATION (test code = MCHC) RED CELL DISTRIBUTION 14.3 % 11.5-14.5 N WIDTH CV (test code = RDW) RED CELL DISTRIBUTION 42.3 fL 37.0-54.0 N WIDTH SD (test code = RDW-SD) PLATELET COUNT (test 197 x10 3/uL 150-400 N code = PLT) MEAN PLATELET VOLUME 10.2 fL 7.0-9.0 H (test code = MPV) NEUTROPHIL % (test 88.7 % 56.0-77.0 H code = NT%) LYMPHOCYTE % (test 3.8 % 14.0-32.0 L code = LY%) NEUTROPHIL # (test 17.97 x10 3/uL 2.0-7.6 H code = NT#) LYMPHOCYTE # (test 0.76 x10 3/uL 1.0-3.8 L code = LY#) MANUAL DIFF REQUIRED NO SLIDE R AMARILISD, (test code = MDIFF) CONSISTE NT WITH AUTO DIFF. IMMATURE GRANULOCYTE 3.5 % 0.0-2.0 H % (test code = IG%) MONOCYTE % (test code 3.7 % 4.8-9.0 L = MO%) EOSINOPHIL % (test 0.0 % 0.3-3.7 L code = EO%) BASOPHIL % (test code 0.3 % 0.0-2.0 N = BA%) NUCLEATED RBC % (test 0.0 % 0-0 N code = NRBC%) IMMATURE GRANULOCYTE 0.71 x10 3/uL 0.00-0.03 H # (test code = IG#) MONOCYTE # (test code 0.74 x10 3/uL 0.1-0.8 N = MO#) EOSINOPHIL # (test 0.00 x10 3/uL 0.0-0.2 N code = EO#) BASOPHIL # (test code 0.07 x10 3/uL 0.0-0.2 N = BA#) NUCLEATED RBC # (test 0.00 x10 3/uL 0.0-0.1 N code = NRBC#) GLUCOSE [id number] 17:38:00 Test Item Value Reference Range Interpretation Comments GLUCOSE BEDSIDE (test 219 MG/DL 70-110 H Perfor med by certified code = GLUBED) dredge operator at [facility] RENAL FUNCTION [id number] 17:21:00 Test Item Value Reference Range Interpretation Comments SODIUM (test code = 133 mEq/L 134-147 L NA) POTASSIUM (test code 3.6 mEq/L 3.4-5.0 N = K) CHLORIDE (test code = 105 mEq/L 100-108 N CL) CARBON DIOXIDE (test 21 mEq/l 21-33 N code = CO2) ANION GAP (test code 10 0-20 N = GAP) GLUCOSE (test code = 247 mg/dL 70-110 H GLU) BLOOD UREA NITROGEN 45 mg/dL 7-18 H (test code = BUN) GLOMERULAR FILTRATION 70.1 90-95 L The Gl omerular RATE (test code = Filtration Rate is a GFR) calculated parameterbased on serum Creatinine, pat ient age and sex. GFR va luesless than 60 mL/min/ 1.73 square meters a re indicative ofCh ronic Kidney Disease. Values less than 15 mL/min/1.73squa re meters indicate Kidney failure. The calculation for GFR is based on the CK D-EPI (2020) calculat ion. This formulais race indifferent and is the recommended for rodrigo for GFRby the [facility] n[facility] Kidney Foundati on for Adults.The GFR will not calculate if th e sex is unknown or if thepatient's ag e is <18 years. CREATININE (test code 1.2 mg/dL 0.6-1.3 N = CREAT) ALBUMIN (test code = 1.40 g/dL 3.4-5.0 L ALB) CALCIUM (test code = 7.6 mg/dL 8.0-10.5 L CA) PHOSPHOROUS (test 3.0 MG/DL 2.5-4.9 code = PHOS) COMMENTS: Every 6 hours until anion gap </= 12 mEq/L, then every morning [id number] 17:21:00 Test Item Value Reference Range Interpretation Comments MAGNESIUM (test code = MAG) 2.03 mg/dL 1.80-2.40 N COMMENTS: Every 6 hours until anion gap </= 12 mEq/L, then every morningUA RFLX MICR CULT IF [id number] 16:51:00 Test Item Value Reference Range Interpretation Comments UA COLOR (test code = COLU) YELLOW YEL/STRAW UA APPEARANCE (test code = SL CLOUDY CLEAR APPU) UA GLUCOSE DIPSTICK (test code 3+ NEGATIVE A = DGLUU) UA BILIRUBIN DIPSTICK (test NEGATIVE NEGATIVE code = BILU) UA KETONE DIPSTICK (test code = NEGATIVE NEGATIVE KETU) UA SPECIFIC GRAVITY (test code 1.013 1.005-1.030 N = SGU) UA BLOOD DIPSTICK (test code = 2+ NEGATIVE A YOSI) UA PH DIPSTICK (test code = 5.0 5.0-7.0 N STEFFEN) UA PROTEIN DIPSTICK (test code 1+ NEGATIVE A = PROU) UA UROBILINIOGEN DIPSTICK (test 0.2 mg/dL 0.2-1.0 code = URO) UA NITRITE DIPSTICK (test code NEGATIVE NEGATIVE = NOE) UA LEUKOCYTE ESTERASE DIPSTICK 3+ NEGATIVE A (test code = LEUU) UA WBC (test code = WBCU) 21-50 WBC/HPF 0-3 A UA RBC (test code = RBCU) 4-10 RBC/HPF 0-3 UA WBC NO REFLEX (test code = 21-50 WBC/HPF 0-3 A WBCUCL) UA BACTERIA (test code = BACU) TRACE /HPF NONE SEEN UA SQUAMOUS CELLS (test code = 0-5 /HPF NONE SEEN SQU) UA MUCUS (test code = MUCU) TRACE /LPF NONE SEEN Indication for culture: RiskForSepsis-no oth srcSpecimen Description: Clean CatchGLUCOSE [id number] 16:12:00 Test Item Value Reference Range Interpretation Comments GLUCOSE BEDSIDE (test 232 MG/DL 70-110 H Perfor med by certified code = GLUBED) 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 operator at [facility] GLUCOSE [id number] 15:20:00 Test Item Value Reference Range Interpretation Comments GLUCOSE BEDSIDE (test 307 MG/DL 70-110 H Perfor med by certified code = GLUBED) dredge operator at [facility] GLUCOSE [id number] 13:53:00 Test Item Value Reference Range Interpretation Comments GLUCOSE BEDSIDE (test 340 MG/DL 70-110 H Perfor med by certified code = GLUBED) dredge operator at [facility] GLUCOSE [id number] 13:53:00 Test Item Value Reference Range Interpretation Comments GLUCOSE BEDSIDE (test 363 MG/DL 70-110 H Perfor med by certified code = GLUBED) dredge operator at [facility] GLUCOSE [id number] 12:46:00 Test Item Value Reference Range Interpretation Comments GLUCOSE BEDSIDE (test 326 MG/DL 70-110 H [facility] by certified code = GLUBED) dredge operator at [facility] RENAL FUNCTION [id number] 11:45:00 Test Item Value Reference Range Interpretation Comments SODIUM (test code = 130 mEq/L 134-147 L NA) POTASSIUM (test code 3.6 mEq/L 3.4-5.0 N = K) CHLORIDE (test code = 107 mEq/L 100-108 N CL) CARBON DIOXIDE (test 22 mEq/l 21-33 N code = CO2) ANION GAP (test code 5 0-20 N = GAP) GLUCOSE (test code = 315 mg/dL 70-110 H GLU) BLOOD UREA NITROGEN 39 mg/dL 7-18 H (test code = BUN) GLOMERULAR FILTRATION 77.8 90-95 L The Gl omerular RATE (test code = Filtration Rate is a GFR) calculated parameterbased on serum Creatinine, pat ient age and sex. GFR va luesless than 60 mL/min/ 1.73 square meters a re indicative ofCh ronic Kidney Disease. Values less than 15 mL/min/1.73squa re meters indicate Kidney failure. The calculation for GFR is based on the CK D-EPI (2020) calculat ion. This formulais race indifferent and is the recommended for rodrigo for GFRby the Nat nal Kidney Foundati on for Adults.The GFR will not calculate if th e sex is unknown or if thepatient's ag e is <18 years. CREATININE (test code 1.1 mg/dL 0.6-1.3 N = CREAT) ALBUMIN (test code = 1.50 g/dL 3.4-5.0 L ALB) CALCIUM (test code = 7.6 mg/dL 8.0-10.5 L CA) PHOSPHOROUS (test 2.2 MG/DL 2.5-4.9 L code = PHOS) COMMENTS: Every 6 hours until anion gap </= 12 mEq/L, then every morning [id number] 11:45:00 Test Item Value Reference Range Interpretation Comments MAGNESIUM (test code = MAG) 2.06 mg/dL 1.80-2.40 N COMMENTS: Every 6 hours until anion gap </= 12 mEq/L, then every morningB- TYPE NATRIURETIC [id number] 11:43:00 Test Item Value Reference Range Interpretation Comments B-TYPE NATRIURETIC PEPTIDE (test 96.0 PG/ML 0-100 N code = BNP) TOTAL IRON BINDING [id number] 09:30:00 Test Item Value Reference Range Interpretation Comments SERUM IRON (test code = IRON) 8 mcg/dL 35-150 L TOTAL IRON BINDING CAPACITY (test 148 mcg/dL 260-445 L code = TIBC) UIBC (test code = UIBC) 140 mcg/dL IRON SATURATION (test code = 5.4 % 14-34 L FESAT) VITAMIN [id number] 09:30:00 Test Item Value Reference Range Interpretation Comments VITAMIN B12 (test code = VITB12) 5883 pg/mL 193-986 H FOLIC [id number] 09:30:00 Test Item Value Reference Range Interpretation Comments FOLIC ACID (test code = FOL) 9.5 ng/mL 3.1-17.5 N [id number] 09:30:00 Test Item Value Reference Range Interpretation Comments FERRITIN (test code = COLEMAN) 2429.2 ng/mL 23.9-336.2 H RENAL FUNCTION [id number] 09:05:00 Test Item Value Reference Range Interpretation Comments SODIUM (test code = 130 mEq/L 134-147 L NA) POTASSIUM (test code 3.3 mEq/L 3.4-5.0 L = K) CHLORIDE (test code = 103 mEq/L 100-108 N CL) CARBON DIOXIDE (test 20 mEq/l 21-33 L code = CO2) ANION GAP (test code 10 0-20 N = GAP) GLUCOSE (test code = 322 mg/dL 70-110 H GLU) BLOOD UREA NITROGEN 42 mg/dL 7-18 H (test code = BUN) GLOMERULAR FILTRATION 70.1 90-95 L The Gl omerular RATE (test code = Filtration Rate is a GFR) calculated parameterbased on serum Creatinine, pat ient age and sex. GFR va luesless than 60 mL/min/ 1.73 square meters a re indicative ofCh ronic Kidney Disease. Values less than 15 mL/min/1.73squa re meters indicate Kidney failure. The calculation for GFR is based on the CK D-EPI (2020) calculat ion. This formulais race indifferent and is the recommended for rodrigo for GFRby the [facility] for Adults.The GFR will not calculate if th e sex is unknown or if thepatient's ag e is <18 years. CREATININE (test code 1.2 mg/dL 0.6-1.3 N = CREAT) ALBUMIN (test code = 1.60 g/dL 3.4-5.0 L ALB) CALCIUM (test code = 8.2 mg/dL 8.0-10.5 N CA) PHOSPHOROUS (test 2.6 MG/DL 2.5-4.9 N code = PHOS) COMMENTS: Every 6 hours until anion gap </= 12 mEq/L, then every morning [id number] 09:05:00 Test Item Value Reference Range Interpretation Comments MAGNESIUM (test code = MAG) 2.13 mg/dL 1.80-2.40 N COMMENTS: Every 6 hours until anion gap </= 12 mEq/L, then every morning GLUCOSE [id number] 08:16:00 Test Item Value Reference Range Interpretation Comments GLUCOSE BEDSIDE (test 292 MG/DL 70-110 H [facility] med by certified code = GLUBED) dredge operator at [facility] COMPREHENSIVE METABOLIC [id number] 05:28:00 Test Item Value Reference Range Interpretation Comments SODIUM (test code = 130 mEq/L 134-147 L NA) POTASSIUM (test code 3.0 mEq/L 3.4-5.0 L = K) CHLORIDE (test code 102 mEq/L 100-108 N = CL) CARBON DIOXIDE (test 22 mEq/l 21-33 N code = CO2) ANION GAP (test code 10 0-20 N = GAP) GLUCOSE (test code = 359 mg/dL 70-110 H GLU) BLOOD UREA NITROGEN 43 mg/dL 7-18 H (test code = BUN) GLOMERULAR 63.7 90-95 L The Glomerular FILTRATION RATE Filtration R ate is a (test code = GFR) calculated parameterbased on serum Creatinin e, patient age and sex. GFR valuesless than 60 mL/min/1.73 squ are meters are gissell cative ofChronic Kidne y Disease. Values less than 15 mL/min/1.73squa re meters indicate Kidney failure. The calculation for GFR is based on the CK D-EPI (2020) calculat ion. This formulais race indifferent and is the recommended for rodrigo for GFRby the [facility]ney Foundati on for Adults.The GFR will not calculate i f the sex is unknown or if thepatient's ag e is <18 years. CREATININE (test 1.3 mg/dL 0.6-1.3 N code = CREAT) TOTAL PROTEIN (test 5.6 g/dL 6.4-8.2 L code = PROT) ALBUMIN (test code = 1.50 g/dL 3.4-5.0 L ALB) CALCIUM (test code = 7.7 mg/dL 8.0-10.5 L CA) BILIRUBIN TOTAL 0.60 mg/dL 0.0-1.0 (test code = BILT) SGOT/AST (test code 27 IUnit/L 15-37 = AST) SGPT/ALT (test code 13 IUnit/L 30-65 L = ALT) ALKALINE PHOSPHATASE 150 IUnit/L 20-125 H TOTAL (test code = ALKP) [id number] 05:28:00 Test Item Value Reference Range Interpretation Comments PHOSPHOROUS (test code = PHOS) 2.9 MG/DL 2.5-4.9 N [id number] 05:28:00 Test Item Value Reference Range Interpretation Comments MAGNESIUM (test code = MAG) 2.13 mg/dL 1.80-2.40 N GLUCOSE [id number] 05:23:00 Test Item Value Reference Range Interpretation Comments GLUCOSE BEDSIDE (test 332 MG/DL 70-110 H Perfor med by certified code = GLUBED) dredge operator at [facility] [id number] 04:57:00 Test Item Value Reference Range Interpretation Comments HGBA1C% (test code = HGBA1C%) > 14.0 %A1C 4.8-6.0 H CBC W/AUTO [id number] 04:24:00 Test Item Value Reference Range Interpretation Comments WHITE BLOOD CELL 21.3 x10 3/uL 4.5-11.0 H (test code = WBC) RED BLOOD CELL (test 2.80 x10 6/uL 4.00-5.60 L code = RBC) HEMOGLOBIN (test code 7.6 g/dL 12.5-16.9 L = HGB) HEMATOCRIT (test code 22.3 % 37.5-50.7 L = HCT) MEAN CELL VOLUME 79.6 fL 81.0-99.0 L (test code = MCV) MEAN CELL HGB (test 27.1 pg 27.0-33.0 N code = MCH) MEAN CELL HGB 34.1 g/dL 33.0-37.0 N CONCETRATION (test code = MCHC) RED CELL DISTRIBUTION 14.0 % 11.5-14.5 N WIDTH CV (test code = RDW) RED CELL DISTRIBUTION 40.9 fL 37.0-54.0 N WIDTH SD (test code = RDW-SD) PLATELET COUNT (test 227 x10 3/uL 150-400 N code = PLT) MEAN PLATELET VOLUME 9.9 fL 7.0-9.0 H (test code = MPV) NEUTROPHIL % (test 89.9 % 56.0-77.0 H code = NT%) LYMPHOCYTE % (test 4.3 % 14.0-32.0 L code = LY%) NEUTROPHIL # (test 19.17 x10 3/uL 2.0-7.6 H code = NT#) LYMPHOCYTE # (test 0.91 x10 3/uL 1.0-3.8 L code = LY#) MANUAL DIFF REQUIRED NO SLIDE R AMARILISD, (test code = MDIFF) CONSISTE NT WITH AUTO DIFF. IMMATURE GRANULOCYTE 2.4 % 0.0-2.0 H % (test code = IG%) MONOCYTE % (test code 3.1 % 4.8-9.0 L = MO%) EOSINOPHIL % (test 0.0 % 0.3-3.7 L code = EO%) BASOPHIL % (test code 0.3 % 0.0-2.0 N = BA%) NUCLEATED RBC % (test 0.0 % 0-0 N code = NRBC%) IMMATURE GRANULOCYTE 0.51 x10 3/uL 0.00-0.03 H # (test code = IG#) MONOCYTE # (test code 0.67 x10 3/uL 0.1-0.8 N = MO#) EOSINOPHIL # (test 0.01 x10 3/uL 0.0-0.2 N code = EO#) BASOPHIL # (test code 0.07 x10 3/uL 0.0-0.2 N = BA#) NUCLEATED RBC # (test 0.00 x10 3/uL 0.0-0.1 N code = NRBC#) COMPREHENSIVE METABOLIC [id number] 04:15:00 Test Item Value Reference Range Interpretation Comments SODIUM (test code = NA) mEq/L 134-147 POTASSIUM (test code = K) mEq/L 3.4-5.0 CHLORIDE (test code = CL) mEq/L 100-108 CARBON DIOXIDE (test code = CO2) mEq/l 21-33 ANION GAP (test code = GAP) 0-20 GLUCOSE (test code = GLU) mg/dL 70-110 BLOOD UREA NITROGEN (test code = mg/dL 7-18 BUN) GLOMERULAR FILTRATION RATE (test 90-95 code = GFR) CREATININE (test code = CREAT) mg/dL 0.6-1.3 TOTAL PROTEIN (test code = PROT) g/dL 6.4-8.2 ALBUMIN (test code = ALB) g/dL 3.4-5.0 CALCIUM (test code = CA) mg/dL 8.0-10.5 BILIRUBIN TOTAL (test code = BILT) mg/dL 0.0-1.0 SGOT/AST (test code = AST) IUnit/L 15-37 SGPT/ALT (test code = ALT) IUnit/L 30-65 ALKALINE PHOSPHATASE TOTAL (test IUnit/L 20-125 code = ALKP) [id number] 04:15:00 Test Item Value Reference Range Interpretation Comments PHOSPHOROUS (test code = PHOS) MG/DL 2.5-4.9 [id number] 04:15:00 Test Item Value Reference Range Interpretation Comments MAGNESIUM (test code = MAG) mg/dL 1.80-2.40 CALCIUM [id number] 04:15:00 Test Item Value Reference Range Interpretation Comments CALCIUM IONIZED (test code = KARLA) 1.07 MMOL/L 1.09-1.30 L GLUCOSE [id number] 01:14:00 Test Item Value Reference Range Interpretation Comments GLUCOSE BEDSIDE (test 296 MG/DL 70-110 H Perfor med by certified code = GLUBED) dredge operator at [facility] - DUP LE ART [id number] 00:00:00 [facility] [place]: KARMA ROWLAND : 1965 Sex: M Name: KARMA ROWLAND [facility] : 1965 Age/S: 56 / M [address] [place] [address] Unit #: [id number] Loc: [place] [address] Phys: Wilbert Ramires MD Acct: [id number] Dis Date: Status: ADM IN PHONE #: [phone] Exam Date: 08/19/2022 0950 FAX #: [phone] Reason: right LE gas gangrene EXAMS: CPT CODE: [id number] DUP LE ART UNI/LTD [id number] PROCEDURE INFORMATION: Exam: US Duplex Right Lower Extremity Arteries Or Arterial Bypass Grafts Exam date and time: 08/19/2022 9:25 AM Age: 56 years old Clinical indication: Condition or disease and screening exam; Pre op debridement; Other: Rle gas gangrene; Additional info: Right le gas gangrene TECHNIQUE: Imaging protocol: Right Real-time duplex scan of the arteries or arterial bypass grafts of the right lower extremity with 2-D fierro scale, colorDoppler flow and spectral waveform analysis. Images documented and saved. COMPARISON: CT LOWER EXTRMW/O C RT 08/18/2022 6:29 AM FINDINGS: Right common femoral artery: The right common femoral artery dem onstrates triphasic waveforms, 92 cm/s. Right superficial femoral artery: The right superficial femoral artery demonstrates triphasic waveforms, 117-123 cm/s. Right popliteal artery: The right popliteal artery demonstrates triphasic waveforms, 85 cm/s. Right calf/foot arteries: The right posterior tibial artery demonstrates triphasic waveforms, 115 cm/s. The right dorsalis pedis artery demonstrates triphasic waveforms, 39 cm/s. IMPRESSION: No sonographic evidence for flow-limiting stenosis in the right lower extremity arterial system. at 1056 Reported and signed by: Abraham Ross M.D. CC: Wilbert Ramires MD Technologist: Ruth Phillips [facility] Date/Time: 08/19/2022 (1056) TipSG9 PAGE 1 Signed ReportGLUCOSE [id number] 23:47:00 Test Item Value Reference Range Interpretation Comments GLUCOSE BEDSIDE (test 265 MG/DL 70-110 H Perfor med by certified code = GLUBED) dredge operator at [facility] RENAL FUNCTION [id number] 23:19:00 Test Item Value Reference Range Interpretation Comments SODIUM (test code = 129 mEq/L 134-147 L NA) POTASSIUM (test code 3.3 mEq/L 3.4-5.0 L = K) CHLORIDE (test code = 102 mEq/L 100-108 N CL) CARBON DIOXIDE (test 20 mEq/l 21-33 L code = CO2) ANION GAP (test code 10 0-20 N = GAP) GLUCOSE (test code = 296 mg/dL 70-110 H GLU) BLOOD UREA NITROGEN 44 mg/dL 7-18 H (test code = BUN) GLOMERULAR FILTRATION 63.7 90-95 L The Gl omerular RATE (test code = Filtration Rate is a GFR) calculated parameterbased on serum Creatinine, pat ient age and sex. GFR va luesless than 60 mL/min/ 1.73 square meters a re indicative ofCh ronic Kidney Disease. Values less than 15 mL/min/1.73squa re meters indicate Kidney failure. The calculation for GFR is based on the CK D-EPI (2020) calculat ion. This formulais race indifferent and is the recommended for rodrigo for GFRby the Natio nal Kidney Foundati on for Adults.The GFR will not calculate if th e sex is unknown or if thepatient's ag e is <18 years. CREATININE (test code 1.3 mg/dL 0.6-1.3 N = CREAT) ALBUMIN (test code = 1.70 g/dL 3.4-5.0 L ALB) CALCIUM (test code = 7.7 mg/dL 8.0-10.5 L CA) PHOSPHOROUS (test 2.8 MG/DL 2.5-4.9 code = PHOS) COMMENTS: Every 6 hours until anion gap </= 12 mEq/L, then every morning [id number] 23:19:00 Test Item Value Reference Range Interpretation Comments MAGNESIUM (test code = MAG) 2.13 mg/dL 1.80-2.40 N COMMENTS: Every 6 hours until anion gap </= 12 mEq/L, then every morning GLUCOSE [id number] 20:07:00 Test Item Value Reference Range Interpretation Comments GLUCOSE BEDSIDE (test 226 MG/DL 70-110 H Perfor med by certified code = GLUBED) dredge operator at [facility] GLUCOSE [id number] 20:07:00 Test Item Value Reference Range Interpretation Comments GLUCOSE BEDSIDE (test 223 MG/DL 70-110 H Perfor med by certified code = GLUBED) dredge operator at [facility] GLUCOSE [id number] 20:07:00 Test Item Value Reference Range Interpretation Comments GLUCOSE BEDSIDE (test 186 MG/DL 70-110 H Perfor med by certified code = GLUBED) dredge operator at [facility] LIPID PROFILE (CORONARY RISK)[id number] 15:54:00 Test Item Value Reference Range Interpretation Comments TRIGLYCERIDES (test 161 mg/dL 40-150 H code = TRIG) CHOLESTEROL (test 90 mg/dL <200 code = CHOL) CHOLESTEROL/HDL 4.00 RATIO 3.43-4.97 N RISK ASSOCIA CARLOS WITH RATIO (test code = CHOL/HDL RATIOS: RISK CHOLHDL) MALE FEMALE1/2 AVERAGE 3.43 3.27AVERAG E 4.97 4.442X AVERAGE 9.55 7.053X AVERAGE 23.39 11.04 NOTE THAT THE REFERENCE VALUE IS RELATEDTO RISK LEVELS RECOMMENDED BY THE NATL.HEART, ANDREW G, AND BLOOD INST. HDL CHOLESTEROL < 20.0 mg/dL 32-72 L (test code = HDL) LIPOPROTEIN LDL 33.0 mg/dL 0-100 N <100 OPTIMAL 100-129 (test code = LDL) NEAR OPTIM AL/ABOVE [id number] 89 HIGH>JS=505 AMBIKA Y HIGH*Guidelines provided by the National [facility] terol EducationProgra m Adult Treatment Panel III T4 [id number] 15:54:00 Test Item Value Reference Range Interpretation Comments T4 FREE (test code = T4F) 0.7 ng/dL 0.77-1.61 L THYROID STIMULATING [id number] 15:54:00 Test Item Value Reference Range Interpretation Comments THYROID STIMULATING 0.96 0.42-5.47 N Results in HORMONE (test code = TSH) mi lli-International Units/mL RENAL FUNCTION [id number] 15:09:00 Test Item Value Reference Range Interpretation Comments SODIUM (test code = 131 mEq/L 134-147 L NA) POTASSIUM (test code 3.4 mEq/L 3.4-5.0 N = K) CHLORIDE (test code = 101 mEq/L 100-108 CL) CARBON DIOXIDE (test 24 mEq/l 21-33 code = CO2) ANION GAP (test code 9 0-20 N = GAP) GLUCOSE (test code = 207 mg/dL 70-110 H GLU) BLOOD UREA NITROGEN 58 mg/dL 7-18 H (test code = BUN) GLOMERULAR FILTRATION 58.3 90-95 L The Gl omerular RATE (test code = Filtration Rate is a GFR) calculated parameterbased on serum Creatinine, pat ient age and sex. GFR va luesless than 60 mL/min/ 1.73 square meters a re indicative ofCh ronic Kidney Disease. Values less than 15 mL/min/1.73squa re meters indicate Kidney failure. The calculation for GFR is based on the CK D-EPI (2020) calculat ion. This formulais race indifferent and is the recommended for rodrigo for GFRby the Natio nal Kidney Foundati on for Adults.The GFR will not calculate if th e sex is unknown or if thepatient's ag e is <18 years. CREATININE (test code 1.4 mg/dL 0.6-1.3 H = CREAT) ALBUMIN (test code = 1.60 g/dL 3.4-5.0 L ALB) CALCIUM (test code = 7.8 mg/dL 8.0-10.5 L CA) PHOSPHOROUS (test 2.2 MG/DL 2.5-4.9 L code = PHOS) COMMENTS: Every 6 hours until anion gap </= 12 mEq/L, then every morning [id number] 15:09:00 Test Item Value Reference Range Interpretation Comments MAGNESIUM (test code = MAG) 2.09 mg/dL 1.80-2.40 N COMMENTS: Every 6 hours until anion gap </= 12 mEq/L, then every morning GLUCOSE [id number] 14:15:00 Test Item Value Reference Range Interpretation Comments GLUCOSE BEDSIDE (test 195 MG/DL 70-110 H Perfor med by certified code = GLUBED) dredge operator at [facility] GLUCOSE [id number] 13:20:00 Test Item Value Reference Range Interpretation Comments GLUCOSE BEDSIDE (test 213 MG/DL 70-110 H Perfor med by certified code = GLUBED) dredge operator at [facility] GLUCOSE [id number] 12:14:00 Test Item Value Reference Range Interpretation Comments GLUCOSE BEDSIDE (test 201 MG/DL 70-110 H Perfor med by certified code = GLUBED) dredge operator at [facility] GLUCOSE [id number] 11:18:00 Test Item Value Reference Range Interpretation Comments GLUCOSE BEDSIDE (test 223 MG/DL 70-110 H Perfor med by certified code = GLUBED) dredge operator at [facility] GLUCOSE [id number] 10:19:00 Test Item Value Reference Range Interpretation Comments GLUCOSE BEDSIDE (test 304 MG/DL 70-110 H Perfor med by certified code = GLUBED) dredge operator at [facility] GLUCOSE [id number] 09:11:00 Test Item Value Reference Range Interpretation Comments GLUCOSE BEDSIDE (test 405 MG/DL 70-110 H Perfor med by certified code = GLUBED) dredge operator at [facility] GLUCOSE [id number] 08:34:00 Test Item Value Reference Range Interpretation Comments GLUCOSE BEDSIDE (test 449 MG/DL 70-110 H Perfor med by certified code = GLUBED) dredge operator at [facility] RENAL FUNCTION [id number] 06:41:00 Test Item Value Reference Range Interpretation Comments SODIUM (test code = 121 mEq/L 134-147 LL Critica l result called NA) to ROSIBEL [employer]KAF at 06 08/18/22Nurse darnell mckeon back resut and tech confirmed it's correct? Y POTASSIUM (test code 4.1 mEq/L 3.4-5.0 N = K) CHLORIDE (test code = 90 mEq/L 100-108 L CL) CARBON DIOXIDE (test 15 mEq/l 21-33 L code = CO2) ANION GAP (test code 20 0-20 N = GAP) GLUCOSE (test code = 692 mg/dL 70-110 HH Critica l result called GLU) to ROSIBEL ESTES.KAF at 06 41 08/18/22Nurse darnell mckeon back resut and tech confirmed it's correct? Y BLOOD UREA NITROGEN 62 mg/dL 7-18 H (test code = BUN) GLOMERULAR FILTRATION 46.2 90-95 L The Gl omerular RATE (test code = Filtration Rate is a GFR) calculated parameterbased on serum Creatinine, pat ient age and sex. GFR va luesless than 60 mL/min/ 1.73 square meters a re indicative ofCh ronic Kidney Disease. Values less than 15 mL/min/1.73squa re meters indicate Kidney failure. The calculation for GFR is based on the CK D-EPI (2020) calculat ion. This formulais race indifferent and is the recommended for rodrigo for GFRby the [facility] on for Adults.The GFR will not calculate if th e sex is unknown or if thepatient's ag e is <18 years. CREATININE (test code 1.7 mg/dL 0.6-1.3 H = CREAT) ALBUMIN (test code = 1.60 g/dL 3.4-5.0 L ALB) CALCIUM (test code = 7.5 mg/dL 8.0-10.5 L CA) PHOSPHOROUS (test 4.8 MG/DL 2.5-4.9 N code = PHOS) COMMENTS: Every 6 hours until anion gap </= 12 mEq/L, then every morning [id number] 06:41:00 Test Item Value Reference Range Interpretation Comments MAGNESIUM (test code = MAG) 2.34 mg/dL 1.80-2.40 N COMMENTS: Every 6 hours until anion gap </= 12 mEq/L, then every morning ACETONE [id number] 06:41:00 Test Item Value Reference Range Interpretation Comments ACETONE QUANT Large - 80-100 See_Comment [Automated message] (test code = mg/dL mg/dL The system whic h ACETN) generated this result transmitted ref erence range: Neg - <2 0. The reference range was not used to int erpret this result as normal/abnormal . COMMENTS: Every 6 hours until anion gap </= 12 mEq/L, then every morning HGBA1C%2022-08-18 06:28:00 Test Item Value Reference Range Interpretation Comments HGBA1C% (test code = HGBA1C%) 13.4 %A1C 4.8-6.0 H [id number] 03:14:00 Test Item Value Reference Range Interpretation Comments SALICYLATE (test code = BANG) 5.6 mg/dL 0.0-20.0 N POC ARTERIAL BLOOD [id number] 03:10:00 Test Item Value Reference Range Interpretation Comments POC ARTERIAL BLOOD GAS PH (test 7.309 7.35-7.45 L code = POCPHA) POC ARTERIAL BLOOD GAS PCO2 22.3 mmHg 35.0-45 LL (test code = TZNMXG2I) POC TCO2 ARTERIAL (test code = 11.9 POCTCO2) POC ARTERIAL BLOOD GAS PO2 (test 108.0 mmHg 80-100.0 H code = HNTSF0Z) POC HCO3 ARTERIAL (test code = 11.2 MMOL/L 22.0-26.0 LL [id number]) POC BASE EXCESS (test code = -15.1 MMOL/L -4.0-4.0 L POCBEA) POC O2 SATURATION (test code = 97.9 % 90-100 N POCO2S) FIO2 (test code = FIO2A) 21 % PaO2/FiO2 (test code = [id number]) 514.28 mm/Hg ABG DELIVERY (test code = ANDREA) Room Air ABG SITE (test code = SITEA) R Radial NETO'S TEST (test code = Positive ALLENS) COVID 19 INHOUSE [id number] 03:08:00 Test Item Value Reference Range Interpretation Comments COVID 19 INHOUSE Negative Negative A negative result is AG (test code = presumptive and should be [id number]) confirmedwith a n FDA authorized mole cular assay, if necessary fo rpatient management.A po sitive result does not rule out co-infections w ithother pathogens.This test detects both viable (li ve) and non-viable,SARS -CoV, and SARS-CoV-2. Ozzy t performance dep ends on theamount of vi renetta (antigen) in th e sample.This ozzy t has not been FDA cleare d or approved; the t est hasbeen authorized by [employer] [facility] under an Emergency Use Authorization(E UA) for use by laboratories certified under the CLIA thatmeet the requirements to perform moderate, high or waivedcomplexit y tests. INFLUENZA A [id number] 03:06:00 Test Item Value Reference Range Interpretation Comments INFLUENZA A (test code = FLUAPCR) Negative Negative INFLUENZA B (test code = FLUBPCR) Negative Negative WBC [id number] 03:04:00 Test Item Value Reference Range Interpretation Comments BAND NEUTROPHIL (test code 12.7 % 0.0-10.0 H = BAND) ANISOCYTOSIS (test code = 1+ ANISO) PLATELET ESTIMATE (test Adequate THOUSAND ADEQUATE code = PLTEST) SEGMENTED NEUTROPHILS (test 70.0 % 37-69 H code = SEG) LYMPHOCYTE (test code = 3.7 % 23-55 L LYMPH) MONOCYTE (test code = MON) 9.1 % 0-10 N METAMYELOCYTE (test code = 2.7 % 0.0-0.0 H META) MYELOCYTE (test code = 0.9 % 0.0-0.0 H MYELO) PROMYELOCYTE (test code = 0.9 % 0-0 H PROM) POLYCHROMASIA (test code = 3+ POLC) POIKILOCYTOSIS (test code = 3+ POIK) MACROCYTOSIS (test code = 1+ MACR) PLATELET MORPHOLOGY (test NORMAL code = PLTMORPH) CBC W/AUTO [id number] 03:04:00 Test Item Value Reference Range Interpretation Comments WHITE BLOOD CELL (test code = 26.5 x10 3/uL 4.5-11.0 H WBC) RED BLOOD CELL (test code = 3.36 x10 6/uL 4.00-5.60 L RBC) HEMOGLOBIN (test code = HGB) 9.0 g/dL 12.5-16.9 L HEMATOCRIT (test code = HCT) 28.3 % 37.5-50.7 L MEAN CELL VOLUME (test code = 84.2 fL 81.0-99.0 N MCV) MEAN CELL HGB (test code = MCH) 26.8 pg 27.0-33.0 L MEAN CELL HGB CONCETRATION 31.8 g/dL 33.0-37.0 L (test code = MCHC) RED CELL DISTRIBUTION WIDTH CV 14.5 % 11.5-14.5 N (test code = RDW) RED CELL DISTRIBUTION WIDTH SD 44.0 fL 37.0-54.0 N (test code = RDW-SD) PLATELET COUNT (test code = 355 x10 3/uL 150-400 N PLT) MEAN PLATELET VOLUME (test code 9.9 fL 7.0-9.0 H = MPV) NEUTROPHIL % (test code = NT%) % 56.0-77.0 LYMPHOCYTE % (test code = LY%) % 14.0-32.0 NEUTROPHIL # (test code = NT#) x10 3/uL 2.0-7.6 LYMPHOCYTE # (test code = LY#) x10 3/uL 1.0-3.8 MANUAL DIFF REQUIRED (test code YES = MDIFF) LACTIC [id number] 02:44:00 Test Item Value Reference Range Interpretation Comments LACTIC ACID (test code = LACT) 1.2 mmol/L 0.4-1.9 N BASIC METABOLIC [id number] 02:44:00 Test Item Value Reference Range Interpretation Comments SODIUM (test code = 115 mEq/L 134-147 LL Critical result called NA) to [facility]AF at 08/18/22Nurse r ead back resut and tech confirmed it's correct? Y POTASSIUM (test code 4.4 mEq/L 3.4-5.0 N = K) CHLORIDE (test code 84 mEq/L 100-108 L = CL) CARBON DIOXIDE (test 14 mEq/l 21-33 L code = CO2) ANION GAP (test code 21 0-20 H = GAP) GLUCOSE (test code = 709 mg/dL 70-110 HH Critica l result called GLU) to RADHA [facility]KAF at 08/18/22Nurse r ead back resut and tech confirmed it's correct? Y BLOOD UREA NITROGEN 60 mg/dL 7-18 H (test code = BUN) GLOMERULAR 40.4 90-95 L The Glomerular FILTRATION RATE Filtration R ate is a (test code = GFR) calculated parameterbased on serum Creatinine, pat ient age and sex. GFR va luesless than 60 mL/min/ 1.73 square meters a re indicative ofCh ronic Kidney Disease. Values less than 15 mL/min/1.73squa re meters indicate Kidney failure. The calculation forGFR is based on the CKD-EPI (2020) calculat ion. This formulais race indifferent and is the recommended for rodrigo for GFRby the Natio nal Kidney Foundati on for Adults.The GFR will not calculate if th e sex is unknown or if thepatient's ag e is <18 years. CREATININE (test 1.9 mg/dL 0.6-1.3 H code = CREAT) CALCIUM (test code = 8.5 mg/dL 8.0-10.5 N CA) HEPATIC FUNCTION [id number] 02:44:00 Test Item Value Reference Range Interpretation Comments TOTAL PROTEIN (test code = PROT) 6.4 g/dL 6.4-8.2 N ALBUMIN (test code = ALB) 1.80 g/dL 3.4-5.0 L BILIRUBIN TOTAL (test code = 0.40 mg/dL 0.0-1.0 N BILT) BILIRUBIN DIRECT (test code = 0.20 MG/DL 0.0-0.30 N BILD) BILIRUBIN INDIRECT (test code = 0.20 MG/DL BILIND) SGOT/AST (test code = AST) 14 IUnit/L 15-37 L SGPT/ALT (test code = ALT) 10 IUnit/L 30-65 L ALKALINE PHOSPHATASE TOTAL (test 157 IUnit/L 20-125 H code = ALKP) [id number] 02:44:00 Test Item Value Reference Range Interpretation Comments LIPASE (test code = LIP) 24 U/L 13-57 N TROP-I HIGH [id number] 02:44:00 Test Item Value Reference Range Interpretation Comments TROP-I HIGH 4 ng/L 0-54 N CAUTION: Units of the SENSITIVITY (test current st methodology code = TROPIHS) (ng/L) diffe rfrom the prior test methodolog y (ng/mL) by a factor of 1000. 99th Percentile Upper Reference Limit (URL): Females: 34 ng/LMales: 54 n g/L In order to distinguish acute elevations of h igh sensitivitytrop onin from other clinical conditions, the FourthUnive rsal Definition of M yocardial Infarction stre ssesclinical assessment and the demonstration o f a rise and/orfall in s erial troponin result s above the URL. These resu lts were obtained using Siemens Atellica IM TnI Hreagent. Results from di fferent methodologies s hould not becompared to o ne another as quantitative results and URLs mayvary by method. - CT LOWER EXTRM W/O C [id number] 00:00:00 [facility] : 1965 Sex: M Name: KARMA ROWLAND [facility] : 1965 Age/S: 56 / M [address] [place] [address] Blvd Unit #: [id number] Loc: [place] [address] Phys: Andrew London MD Acct: [id number] Dis Date: Status: ADM IN PHONE #: [phone] Exam Date: 08/18/2022 0645 FAX #: [phone] Reason: soft tissue infection Report Has Been Amended EXAMS: CPT CODE: [id number] [place] W/[place] [id number] Addendum - 08/18/2022 SIGNED 08/18/2022 ADDENDUM: [id number] CT/CTLEWOCRT Notes: Critical findings were discussed with Dr. Ortega at 08/18/2022 8:38 AM CDT. at 0839 Reported and signed by: Kendall Dorantes M.D. Report PROCEDURE INFORMATION: Exam: CT Right Lower Extremity Without Contrast, Foot Exam date and time: 08/18/2022 6:29 AM Age: 56 years old Clinical indication: Other: Soft tissue infection TECHNIQUE: Imaging protocol: CT of the right lower extremity without contrast was performed. Exam focused on the foot. Radiation optimization: AllCT scans at this facility use at least one of these dose optimization techniques: automated exposurecontrol; mA and/or kV adjustment per patient size (includes targeted exams where dose is matched to clinical indication); or iterative reconstruction. REPORTING DATA: Count of CT and Cardiac NM exams in prior 12 months: This patient has received [address] and 0 known cardiac nuclear medicine studies in the 12 months prior to the current study. COMPARISON: CR XR FOOT 3 + V RT 08/18/2022 2:35 AM FINDINGS: Limitations: Assessment of the soft tissues and vasculature may be limited by the lack of intravenous contrast. Bones/joints: There is no fracture, dislocation or bone destructive lesion. There are degenerative changes in the mid and hindfoot. Soft tissues: There is generalized subcutaneous edema in the foot and visualized leg. There are multifocal areas of superficial blistering. There is no discrete walled-off fluid collection within limitations of noncontrast technique. There is mottled soft tissue gas in the visualized subcutaneous tissues, dorsal and plantar PAGE 1 Signed Report (CONTINUED)Name: KARMA ROWLAND [facility] : 1965 Age/S: 56 / M [address] [place] [address] Blvd Unit#: [id number] Loc: [place] [address] Phys: Andrew London MD Acct: [id number] Dis Date: Status: ADMIN PHONE #: [phone] Exam Date: 08/18/2022 0645 FAX #: [phone] Reason: soft tissue infection Report Has Been Amended EXAMS: CPT CODE: [id number] CT LOWER EXTRM W/[place] [address] (Continued) compartments of the foot with extension along the extensor and flexor tendon sheaths in the visualized leg. Notes: Call report initiated at 08/18/2022 8:25 AM CDT. IMPRESSION: Extensive soft tissue edemawith mottled gas in the subcutaneous and intramuscular compartments of the foot compatible with gas-forming infection. Disease extends into the visualized distal leg. at 0826 Reported and signed by: Kendall Dorantes M.D. CC: Sg Ramires MD; Andrew London MD Technologist:Bony Benavidez, RT(R)(CT) CTDI: DLP: Trnscb Date/Time: 08/18/2022 (825) TipKWL Orig Print D/T: S: 08/18/2022 (826) PAGE 2 Signed Report- XR FOOT 3 + V [id number] 00:00:00 [facility] : 1965 Sex: M FAX: Angi Peña [place]: [address]: REG Name: LEONMYESHAKARMA [facility] : 1965 Age/S: [address] Unit #: [id number] Loc: [place] [address] Phys: Angi Peña Acct: [id number] Dis Date: Status: REG ER PHONE #: [phone] Exam Date: 08/18/2022 0238 FAX #: [phone] Reason: DIABETIC FOOT WOUND R/O OSTEOMYLITIS EXAMS: CPT CODE: [id number] XR FOOT 3 + V RT [address] PROCEDURE INFORMATION: Exam: XR Right Foot Exam date and time: 08/18/2022 2:35 AM Age: 56 years old Clinical indication: Other: Diabetic foot wound R/O osteomylitis TECHNIQUE: Imaging protocol: Radiologic exam of the right foot. Views: 3 or more views. AP Oblique Lateral COMPARISON: No relevant prior studiesavailable. FINDINGS: Bones/joints: No osseous erosion or destruction identified to suggest the presence of osteomyelitis. MRI with IV contrast is best for assessing for osteomyelitis. No fracture identified. Joint spaces are well maintained. Soft tissues: Soft tissue gas is noted in the dorsal foot and ankle soft tissues. Notes: If there is further concern, recommend follow-up radiographs or MRI for complete assessment. IMPRESSION: No acute osseous findings. No convincing evidence for osteomyelitis.MRI is more sensitive for detecting osteomyelitis. at 0357 Reported and signed by: Jay Ladd M.D. CC: Angi Peña Technologist: RT Kush(Darnell) Trnscrd Date/Time/By: 08/18/2022 (035) : By: [email or web address] Orig Print D/T: S: 08/18/2022 (0358) PAGE 1 Signed Report- XR CHEST 2 [id number] 00:00:00 [facility] : 1965 Sex: M FAX: Angi Peña [place]: St: REG Name: KARMA ROWLAND [facility] : 1965 Age/S: 56/M [address] [place] [address] Unit #: [id number] Loc: [place] [address] Phys: Angi Peña Acct: [id number] Dis Date: Status: REG ER PHONE #: [phone] Exam Date: 08/18/2022 020 FAX #: [phone] Reason: FEVER PAIN EXAMS: CPT CODE: [id number] XR CHEST 2 V 81492 PROCEDURE INFORMATION: Exam: XR Chest Exam date and time: 08/18/2022 1:58 AM Age: 56 years old Clinical indication: Fever and other: Feverpain TECHNIQUE: Imaging protocol: Radiologic exam of the chest. Views: 2 views. PA and Lateral COMPARISON: No relevant prior studies available. FINDINGS: Lungs: Well inflated lungs with ill-defined ashlie ewhat nodular opacity measuring 3.2 cm laterally in the right mid lung suspicious for rounded pneumonia given provided history, but underlying neoplasm can not be excluded. Pleural spaces: Unremarkable. No pleural effusion. No pneumothorax. Heart/Mediastinum: Normal without cardiomegaly or mass. Bones/ joints: No acute osseous abnormality. IMPRESSION: Ill-defined somewhat nodular opacity measuring 3.2cm laterally in the right mid lung suspicious for rounded pneumonia given provided history, but underlying neoplasm can not be excluded. Followup radiographs are recommended after appropriate treatment in order to document complete resolution and exclude an underlying process or neoplasm. at 0317 Reported and signed by: Jennifer Mrorell CC: Angi Peña Technologist: RT Currie (R) Trnscrd Date/Time/By: 08/18/2022 (316) : By: [email or web address] Orig Print D/T: S: 08/18/2022 (316) PAGE 1 Signed Report- CT ABD PELVIS [id number] 00:00:00 [facility] : 1965 Sex: M Name: KARMA ROWLAND [facility] : 1965 Age/S: 56 / M [address] [place] [address] Unit #: [id number] Loc: [place] [address] Phys: Angi Peña Acct: [id number] Dis Date: Status: ADM IN PHONE #: [phone] Exam Date: 08/18/2022338 FAX #: [phone] Reason: FEVER PAIN EXAMS:CPT CODE: [id number] CT ABD PELVIS W/CONT 21494 PROCEDURE INFORMATION: Exam: CT Abdomen And Pelvis With Contrast Exam date and time: 08/18/2022 3:36 AM Age: 56 years old Clinical indication: Abdominal pain; Generalized; Additional info: Fever pain TECHNIQUE: Imaging protocol: Computed tomography of the abdomen and pelvis with contrast. Radiation optimization: All CT scans at this facility use at least one of these dose optimization techniques: automated exposure control; mA and/or kV adjustment per patient size (includes targeted exams where dose is matched to clinical indication); or iterative reconstruction. Contrast material: ISO 300; Contrast volume: 100 ml; Contrast route: INTRAVENOUS (IV); REPORTING DATA: Count of CT and Cardiac NM exams in prior 12 months: This patient has received 0 known CTs and 0 known cardiac nuclear medicine studies in the 12 months prior to the current study. COMPARISON: DX XR CHEST 2 V 08/18/2022 1:58 AM FINDINGS: Liver: No hepatic lesion or significant steatosis.Gallbladder and bile ducts: No gross abnormalities. No biliary ductal dilatation. Pancreas: Within normal limits. No ductal dilation. Spleen: No focal lesions or splenomegaly. Adrenal glands: Normal. No mass. Kidneys and ureters: No hydroureteronephrosis or urolithiasis. No focal renal lesions. Stomach and bowel: Small bowel and colon are nondilated. Stomach is grossly normal. Appendix: No evidence of appendicitis. Intraperitoneal space: Mild to moderate mesenteric and body wall edema is identified.No pneumoperitoneum identified. Vasculature: No abdominal aortic aneurysm. Lymph nodes: No thresholdenlarged lymph nodes visualized. Urinary bladder: Unremarkable as visualized. Reproductive: 3.3 x 3.0 cm hypodensity in the left inferior pelvis is likely located within the left prostate or seminal vesicle. Bones/joints: No acute osseous abnormalities. No suspicious lytic or blastic osseous lesions.Soft tissues: No mass or fluid collection. IMPRESSION: PAGE 1 Signed Report (CONTINUED) Name: KARMA ROWLAND [facility] : 1965 Age/S: 56 / M [address] [place] [address] Unit #: [id number] Loc: [place] [address] Phys: Angi Peña Acct: [id number] Dis Date: Status: ADM IN PHONE #: [phone] Exam Date: 08/18/2022 0331 FAX #: [phone] Reason: FEVER PAIN EXAMS: CPT CODE:[id number] CT ABD PELVIS W/CONT 34004 (Continued) 3.3 cm hypodensity in the left posterior prostate or seminal vesicle. This could represent an abscess. Contrast-enhanced MRI of the pelvis would be helpful for further evaluation. No acute intra-abdominal findings otherwise. at 0546 Reported and signed by: Jay Ladd M.D. CC: Angi HUMMEL Mariana Technologist:RT Halima(R)(CT) CTDI: DLP: Trnscb Date/Time: 08/18/2022 ( 0546) [email or web address] Orig Print D/T: S: 08/18/2022 (0507) PAGE 2 Signed Report Notes Date/Time Note Provider Source 2022-09-24 19:34:00-00:00 [facility] Pod[facility] Progress Note REPORT#:[id number] REPORT STATUS: Signed DATE:09/24/22 TIME: 1933 PATIENT: KARMA ROWLAND UNIT #: [id number] ROOM/BED: [place] [address] : [birth year] AGE: 56 SEX: M ATTEND: Fredy Vences MD ADM AUTHOR: Liam Pedersen DPM * ALL edits or amendments must be made on the [employer]/computer document * Subjective Chief complaint: left heel ulcer. left ankle pain Patient reports: no confusio n, no dizziness, no fever, no heartburn, no itching, no nausea Objective General VS: Last Documented: Result Date Time Pulse Ox 95 09/24 1632 B/P 156/74 09/24 1632 B/P Mean 101.6 09/24 1632 O2 Delivery Room air 09/24 1632 Temp 36.7 09/24 1632 Pulse 87 09/24 1632 Resp 17 09/24 1632 O2 Flow Rate 2 09/08 1322 PATIENT WEIGHT: Weight (lb): 167 Weight (oz): 12.35 Weight (kg): 76.100 Medications: Active Meds + DC'd Last 24 Hrs Prednisone (predniSONE) 40 MG C BK PO (DCD) Clonidine HCl (CATAPRES) 0.1 MG Q12HR PO (DCD) Furosemide (LASIX) 20 MG DAILY PO (DCD) Insulin Glargine (Semglee) 22 UNIT BEDTIME SUBQ (DCD) Insulin Human Lispro (HUMALOG) 12 UNIT AC SUBQ ( DCD) Sodium Bicarbonate (SODIUM BICARBONATE) 650 MG B ID PO (DCD) Amlodipine Besylate (NORVASC) 10 MG DAILY PO (DC ) Prednisone (predniSONE) 50 MG C BK PO (DC) Hydralazine HCl (APRESOLINE) 100 MG Q8HR PO (DCD ) Carvedilol (COREG) 25 MG C BK DIN PO (DCD) Gabapentin (NEURONTIN) 100 MG Q8HR PO (DCD) Oxycodone/Acetaminophen (PERCOCET 5/325MG TAB) 2 TAB Q4H PRN PRN PO (DCD ) Folic Acid (FOLIC ACID) 2 MG DAILY PO (DCD) Multivitamins (TAB-A-MOHAN) 1 TAB DAILY PO (DCD) Furosemide (LASIX 20MG INJ) 20 MG BLOOD-DOSE BET WEEN IV (DCD) Sodium Chloride (SODIUM CHLORIDE) 10 ML ASDIR IV (DCD) Pantoprazole Sodium (PROTONIX) 40 MG Q12HR IV (D CD) Polyethylene Glycol (MIRALAX) 17 GM DAILY PO (DC D) Sennosides (Senna Lax 8.6 MG TABLET) 8.6 MG MADALYN Y PO (DCD) Sodium Chloride (SODIUM CHLORIDE) 10 ML ASDIR NV N IV (DCD) Amitriptyline HCl (ELAVIL) 25 MG BEDTIME PO (DCD ) Zinc Oxide (ZINC OXIDE 30 GM OINTMENT) 1 APPLIC DAILY TOPICAL (DCD) Sterile Water (WATER FOR IRRIGATION) DRESSING CH GELACIO ASDIR PRN IRR (DCD) Insulin Human Lispro (HUMALOG) 0 AC HS SUBQ (DCD ) Dextrose/Water (DEXTROSE 10% IN WATER) 125 ML DIR PRN IV (DCD) Dextrose/Water (DEXTROSE 10% IN WATER) 250 ML DIR PRN IV (DCD) Glucagon (GLUCAGON) 1 MG ASDIR PRN IM (DCD) Lidocaine (LIDODERM) 1 PATCH DAILY TOPICAL (DCD) Acetaminophen (TYLENOL) 650 MG Q6H PRN PRN PO (D CD) Bisacodyl (DULCOLAX) 10 MG DAILY PRN PRN RECTAL (DCD) Docusate Sodium (COLACE) 100 MG Q12H PRN PRN PO (DCD) Hydralazine HCl (APRESOLINE) 10 MG Q6H PRN PRN I V (DCD) Ondansetron HCl (ZOFRAN) 4 MG Q6H PRN PRN IV (DC D) I O: 24 hour I O ending at 0700: 09/24 0700 09/23 1900 Intake Total 240 Output Total 1500 1300 Balance -1260 -1300 Intake, Oral 240 Number 0 Incontinent Voids Number Voids 0 Output, Urine 1500 1300 Dietitian nutrition assessment The data set between the solid lines has been im ported from the dietitian's assessment. BMI Calculated: 27.1 Nutrition related diagnosis: Nutrition diagnosis details: Nutrition problem: Altered nutrition labs Nutrition etiology: DM Nutrition signs and symptoms: HYPER/HYPOGLYCEMIA , A1C >14 Nutrition prescription: CONTINUE RENAL DM DIET Dietitian name: You Palmer, DIET Assessment completed: 09/18/22 Physical Exam General appearance: alert, awake, oriented Wound/incision: Location: left foot Site condition: dp/pt 2/4 left. light touch dec reased left foot. ulcer starting at posterior left heel. eccymosis noted . early likely stage 1. left ankle has edema. pain with aggressive ROM left a nkle. dorsal left midfoot is starting to have tissue injury LE vascular pulse assess: 2+ L posterior tibialis, 2+ L dorsalis pedis Considered stroke alert: no Ulcer: Location: DTI dorsal left midfoot Results Findings/Data: Laboratory Tests: 09/24 09/24 09/24 09/24 1630 1052 0551 0540 Chemistry Sodium (134 - 147 mEq/L) 144 Potassium (3.4 - 5.0 mEq/L) 5.0 Chloride (100 - 108 mEq/L) 115 H Carbon Dioxide (21 - 33 mEq/l) 19 L Anion Gap (0 - 20) 15 BUN (7 - 18 mg/dL) 60 H Creatinine (0.6 - 1.3 mg/dL) 1.7 H Glomerular Filtr Rate (90 - 95) 46.2 L Glucose (70 - 110 mg/dL) 183 H POC Glucose (70 - 110 MG/DL) 167 H 100 176 H Calcium (8.0 - 10.5 mg/dL) 7.8 L Phosphorus (2.5 - 4.9 MG/DL) 5.4 H Magnesium (1.80 - 2.40 mg/dL) 2.18 Hematology WBC (4.5 - 11.0 x10 3/uL) 13.1 H RBC (4.00 - 5.60 x10 6/uL) 2.67 L Hgb (12.5 - 16.9 g/dL) 7.6 L Hct (37.5 - 50.7 %) 25.0 L MCV (81.0 - 99.0 fL) 93.6 MCH (27.0 - 33.0 pg) 28.5 MCHC (33.0 - 37.0 g/dL) 30.4 L RDW (11.5 - 14.5 %) 16.4 H Plt Count (150 - 400 x10 3/uL) 285 MPV (7.0 - 9.0 fL) 9.6 H Neut % (Auto) (56.0 - 77.0 %) 73.5 Lymph % (Auto) (14.0 - 32.0 %) 14.8 Boundary % (Auto) (4.8 - 9.0 %) 7.6 Eos % (Auto) (0.3 - 3.7 %) 3.0 Baso % (Auto) (0.0 - 2.0 %) 0.0 Neut # (Auto) (2.0 - 7.6 x10 3/uL) 9.62 H Lymph # (Auto) (1.0 - 3.8 x10 3/uL) 1.93 Boundary # (Auto) (0.1 - 0.8 x10 3/uL) 0.99 H Eos # (Auto) (0.0 - 0.2 x10 3/uL) 0.39 H Baso # (Auto) (0.0 - 0.2 x10 3/uL) 0.00 Abs Immat Gran (auto) (0.00 - 0.03 x10 3/uL) 0. 14 H Add Manual Diff NO Immature Gran % (0.0 - 2.0 %) 1.1 Nucleated RBC % (0 - 0 %) 0.0 Nucleated RBCs # (Man) (0.0 - 0.1 x10 3/uL) 0.0 0 Diagnosis, Assessment Plan Free Text A P: DM with neuropathy early decub ulcer left heel OA/edema left ankle early ulcer/DTI dorsal left midfoot zinc oxide to foot and heel foam to heel on IV abx on PO gabapentin offloading boot oralia wraps to ankle, only when OOB with therapy. zinc oxide interchange with bactroban to dorsal left foot Consultants: cardiology, endocrinology, hospital ist, infectious disease, podiatry Electronically Signed by Liam Pedersen DPM on 0 09/24/22 at 1934 RPT #:[id number] END OF REPORT 2022-09-24 16:05:00-00:[address] [facility] ([facility]) Infectious Dis. Progress Note REPORT#:[id number] REPORT STATUS: Signed DATE:09/24/22 TIME: 1605 PATIENT: KARMA ROWLAND UNIT #: [id number] ROOM/BED: [place] [address] : [birth year] AGE: 56 SEX: M ATTEND: Fredy Vences MD ADM AUTHOR: Anthony Curtis MD * ALL edits or amendments must be made on the SuiteLinq/computer document * Subjective Chief complaint: Follow-up on MRSA bacteremia, prostatic abscess. HPI: Patient reports feeling better subjectively. Den ies acute or new complaints. No major overnight events. Objective General VS/I O: Vital Signs Date Temp Pulse Resp B/P B/P Mean Pulse Ox FiO2 /-09/24 97.7-97.9 86-87 16 160-169/81-86 107 .5-113.7 97 Last Documented: Result Date Time Pulse Ox 97 09/24 8 B/P 160/81 09/24 8 B/P Mean 107.5 09/24 8 O2 Delivery Room air 09/24 8 Temp 97.9 09/24 8 Pulse 87 09/24 8 Resp 16 05/03 0009 O2 Flow Rate 2 09/08 1322 Vital Signs: Date Time Temp Pulse Resp B/P B/P Pulse O2 O2 F low FiO2 Mean Ox Delivery Rate 09/24 000 97.9 87 16 160/81 107.5 97 Room air 09/23 1916 97.7 86 16 169/86 113.7 97 Room air 24 hour I O ending at 0700: 09/24 0700 09/23 1900 Intake Total 240 Output Total 1500 1300 Balance -1260 -1300 Intake, Oral 240 Number 0 Incontinent Voids Number Voids 0 Output, Urine 1500 1300 PATIENT WEIGHT: Weight (lb): 167 Weight (oz): 12.35 Weight (kg): 76.100 Physical Exam General appearance: alert, awake, no acute distr ess Cardiovascular: normal heart sounds, regular rat e rhythm Respiratory: clear to auscultation, aerating wel l Abdomen: non-tender, soft, no distention Extremities: edema (in left leg and thig h improved), moves all, right BKA Left foot wound +dressing in place 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 According to him, he noticed a bliste r on his right foot around 3 days prior to presentation. His foot got progres sively more swollen and erythema extended proximally to his lateral foot and ankle. CT abdomen and pelvis with contrast is concerning for possible prostate abscess. CT of lower extremity without contrast s hows extensive soft tissue edema with mottled gas in the subcutaneous and intramu scular compartments of the foot, compatible with gas -forming infection. Patient's blood cultures hav e come back positive for MRSA in 2 out of 2 sets. Patient has had persistent p ositive cultures for MRSA. He underwent a debridement of his foot on and cultures grew MRSA. Patient was started on vanco mycin and clindamycin on 08/18/2022. His MRI showed a prostate abscess. 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 Pt underwent a transrectal aspiration and u nroofing of prostate abscess 08/26/2022 and cultures grew Citrobacter, Enterococcus, MRSA. 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 JIMENA done 09/02/2022, which was negative fo r vegetations. Patient was transferred to Rehab on 09/02/2022. *MRSA bacteremia, refractory, now cleared *Prostatic abscess, s/p unroofing 08/26/2022 *ERIKA *Hyponatremia *Diabetic neuropathy *Diabetes mellitus type 2 *Hypertension *Anemia -Afebrile; although with an isolated low-grade t emperature spike of 37.2 C. -Leukocytosis of 11.8 on today's CBC noted; over all, downtrending. -No recent cultures. Last blood cultures from negative x2. Plan: -On daptomycin and meropenem. -Finishing treatment today. -Would finish treatment as planned and then madelin tor off antimicrobials. -Continue supportive care. Electronically Signed by Anthony Curtis MD on 08/14 at 1605 RPT #:[id number] END OF REPORT 2022-09-24 15:22:00-00:00 [facility] ([facility]) Pain Management Progress Note REPORT#:[id number] REPORT STATUS: Signed DATE:09/24/22 TIME: 1521 PATIENT: KARMA ROWLAND UNIT #: [id number] ROOM/BED: [place] [id number] : 63 AGE: 56 SEX: M ATTEND: Mj Vences MD ADM AUTHOR: Ben Klein * ALL edits or amendments must be made on the [employer]/computer document * Ben Klein 09/24/22 1522: Subjective Chief complaint: Patient seen and examined. Chart/MAR reviewed. Patient is currently with good pain control medi cation alleviates pain when taken. No side effects noted with use. No aggravating neuropathy symptoms today. Patient being seen for Acute postoperative pain, right foot and ankle gangrene, requiring BKA, Neuropathy, Constipatio n Patient is still requiring medications to help w ith managing current problems. No fever/chills, chest pain, orthopnea, nausea/v omiting, pruritus, or hallucinations. 14 point ROS undertaken unremarkable except as n oted Objective General VS/I O: Vital Signs Date Temp Pulse Resp B/P B/P Mean Pulse Ox FiO2 05/-09/24 36.5-36.6 86-87 16 160-169/81-86 107 .5-113.7 97 Last Documented: Result Date Time Pulse Ox 97 09/24 8 B/P 160/81 09/24 000 B/P Mean 107.5 09/24 8 O2 Delivery Room air 09/24 8 Temp 36.6 09/24 8 Pulse 87 09/24 8 Resp 16 09/24 8 O2 Flow Rate 2 09/08 1322 24 hour I O ending at 0700: 09/24 0700 09/23 1900 Intake Total 240 Output Total 1500 1300 Balance -1260 -1300 Intake, Oral 240 Number 0 Incontinent Voids Number Voids 0 Output, Urine 1500 1300 PATIENT WEIGHT: Weight (lb): 167 Weight (oz): 12.35 Weight (kg): 76.100 Medications: Active Meds + DC'd Last 24 Hrs Prednisone (predniSONE) 40 MG C BK PO Clonidine HCl (CATAPRES) 0.1 MG Q12HR PO Furosemide (LASIX) 20 MG DAILY PO Insulin Glargine (Semglee) 22 UNIT BEDTIME SUBQ Insulin Human Lispro (HUMALOG) 12 UNIT AC SUBQ Sodium Bicarbonate (SODIUM BICARBONATE) 650 MG BID PO Lactulose (LACTULOSE) 20 GM ONCE ONE PO (DC) Amlodipine Besylate (NORVASC) 10 MG DAILY PO (DC ) Prednisone (predniSONE) 50 MG C BK PO (DC) Hydralazine HCl (APRESOLINE) 100 MG Q8HR PO Carvedilol (COREG) 25 MG C BK DIN PO Gabapentin (NEURONTIN) 100 MG Q8HR PO Oxycodone/Acetaminophen (PERCOCET 5/325MG TAB) 2 TAB Q4H PRN PRN PO Folic Acid (FOLIC ACID) 2 MG DAILY PO Multivitamins (TAB-A-MOHAN) 1 TAB DAILY PO Furosemide (LASIX 20MG INJ) 20 MG BLOOD-DOSE BET WEEN IV (CKD) Sodium Chloride (SODIUM CHLORIDE) 10 ML ASDIR IV Pantoprazole Sodium (PROTONIX) 40 MG Q12HR IV Polyethylene Glycol (MIRALAX) 17 GM DAILY PO Sennosides (Senna Lax 8.6 MG TABLET) 8.6 MG MADALYN Y PO Sodium Chloride (SODIUM CHLORIDE) 10 ML ASDIR NV N IV Amitriptyline HCl (ELAVIL) 25 MG BEDTIME PO Zinc Oxide (ZINC OXIDE 30 GM OINTMENT) 1 APPLIC DAILY TOPICAL Sterile Water (WATER FOR IRRIGATION) DRESSING CH GELACIO ASDIR PRN IRR Insulin Human Lispro (HUMALOG) 0 AC HS SUBQ Dextrose/Water (DEXTROSE 10% IN WATER) 125 ML DIR PRN IV (CKD) Dextrose/Water (DEXTROSE 10% IN WATER) 250 ML DIR PRN IV (CKD) Glucagon (GLUCAGON) 1 MG ASDIR PRN IM Lidocaine (LIDODERM) 1 PATCH DAILY TOPICAL Acetaminophen (TYLENOL) 650 MG Q6H PRN PRN PO Bisacodyl (DULCOLAX) 10 MG DAILY PRN PRN RECTAL Docusate Sodium (COLACE) 100 MG Q12H PRN PRN PO Hydralazine HCl (APRESOLINE) 10 MG Q6H PRN PRN I V Ondansetron HCl (ZOFRAN) 4 MG Q6H PRN PRN IV Physical Exam General appearance: alert, awake, oriented, no a cute distress Head/eyes: atraumatic, EOMI, normocephalic, norm al conjunctiva/sclera, PERRLA ENT: normal nose, normal pharynx, moist mucosal membranes Neck: full range of motion, no lymphadenopathy, supple/no meningismus Cardiovascular: regular rate rhythm Respiratory: aerating well Abdomen: soft, non-tender, no distention , active bowel sounds in all quarants. 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: 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, no sensory deficit s, CNII-XII grossly intact Considered stroke alert: no Skin: dry, intact, no rash Lymphatics: axilla normal Psychiatry: normal affect, normal judgment/insig ht Results Findings/data: Laboratory Tests: 09/24 09/24 09/24 09/23 1052 0551 0540 1913 Chemistry Sodium (134 - 147 mEq/L) 144 Potassium (3.4 - 5.0 mEq/L) 5.0 Chloride (100 - 108 mEq/L) 115 H Carbon Dioxide (21 - 33 mEq/l) 19 L Anion Gap (0 - 20) 15 BUN (7 - 18 mg/dL) 60 H Creatinine (0.6 - 1.3 mg/dL) 1.7 H Glomerular Filtr Rate (90 - 95) 46.2 L Glucose (70 - 110 mg/dL) 183 H POC Glucose (70 - 110 MG/DL) 100 176 H 194 H Calcium (8.0 - 10.5 mg/dL) 7.8 L Phosphorus (2.5 - 4.9 MG/DL) 5.4 H Magnesium (1.80 - 2.40 mg/dL) 2.18 Hematology WBC (4.5 - 11.0 x10 3/uL) 13.1 H RBC (4.00 - 5.60 x10 6/uL) 2.67 L Hgb (12.5 - 16.9 g/dL) 7.6 L Hct (37.5 - 50.7 %) 25.0 L MCV (81.0 - 99.0 fL) 93.6 MCH (27.0 - 33.0 pg) 28.5 MCHC (33.0 - 37.0 g/dL) 30.4 L RDW (11.5 - 14.5 %) 16.4 H Plt Count (150 - 400 x10 3/uL) 285 MPV (7.0 - 9.0 fL) 9.6 H Neut % (Auto) (56.0 - 77.0 %) 73.5 Lymph % (Auto) (14.0 - 32.0 %) 14.8 Boundary % (Auto) (4.8 - 9.0 %) 7.6 Eos % (Auto) (0.3 - 3.7 %) 3.0 Baso % (Auto) (0.0 - 2.0 %) 0.0 Neut # (Auto) (2.0 - 7.6 x10 3/uL) 9.62 H Lymph # (Auto) (1.0 - 3.8 x10 3/uL) 1.93 Boundary # (Auto) (0.1 - 0.8 x10 3/uL) 0.99 H Eos # (Auto) (0.0 - 0.2 x10 3/uL) 0.39 H Baso # (Auto) (0.0 - 0.2 x10 3/uL) 0.00 Abs Immat Gran (auto) (0.00 - 0.03 x10 3/uL) 0. 14 H Add Manual Diff NO Immature Gran % (0.0 - 2.0 %) 1.1 Nucleated RBC % (0 - 0 %) 0.0 Nucleated RBCs # (Man) (0.0 - 0.1 x10 3/uL) 0.0 0 Diagnosis, Assessment Plan Free text A P: A/P: Patient is a 56 year old male who presents with: Past Medical History: Prostate abscess, right fo ot foot and ankle gangrene, diabetes, hypertension, hyperlipidemia Past Surgical History: TURP, right BKA Family History: Noncontributory Social History: Denies tobacco, alcohol, or drug use Allergies: NKDA Recent prostate abscess -Status post TURP with unroofing of abscess -IV antibiotics with vancomycin until 09-24-2022 Acute postoperative pain, right foot and ankle g angrene, requiring BKA -Patient is at risk for further amputations or l oss of limb due to comorbid conditions -Status post right BKA 08/28/2022 -DC Check 10/325 1 tablet p.o. every 4 hours as needed pain scale 4 10 -DC Dilaudid 0.5 mg IV daily as needed pain scale 7 10, second line therapy () -Tylenol 650 mg p.o. every 6 hours as needed ofelia n scale 1 3 -Percocet 10/325mg every 4 hours as needed, pain scale 4-10 (09/10) -Lidoderm patch to left ankle daily -IV antibiotics with vancomycin until 09-24-2022 -Local wound care -manageable Diabetic peripheral neuropathy -amitriptyline 25mg PO QHS -Gabapentin 100mg every 8 hours (09/10) -manageable Hypertension -We will monitor hypertension and tachycardia du e to pain, and hypotension as well as bradycardia secondary over sedation with narcotics -Hydralazine as needed Elevated LFTs -08/20/22-AST 51, ALT 22 -09/03/2022-AST 15, ALT 7 -Patient will require close monitoring since he is using narcotics with Tylenol Impaired functional mobility, balance, gait, and endurance -PT/OT Antalgic/Impaired gait -PT/OT -Improve strength, endurance, self-care, gait, b alance, ADLs -Fall precautions per unit protocol -Pain medications as outlined above Constipation -We will monitor while utilizing opioid narcotic medications. -Adequate fluid intake also discussed. -Colace 100 mg p.o. twice daily as needed -Dulcolax 10 mg rectally daily as needed -Senna lax 8.6mg daily -Miralax 17gm daily -manageable Disposition: percocet 10/325 mg q6h prn pain , gabapentin 100mg q8h sent to [facility]/ pharmacy #[id number] [place], [place] [address] ([facility]) Phone: Patient has failed conservative medical therapy. Patient will require monitoring while utilize na rcotic medications for any adverse effects, and will adjust as needed Plan of care discussed with patient and nurse All diagnostics of last 24 hours been reviewed. Risks versus benefits of opioid medications were reviewed to include, but not limited to respiratory depression, accid ental overdose, altered mental status, sudden , constipation which could result in bowel obstruction, seizures, withdrawal, dependency addiction, risk for falls . Case discussed with Dr Ng whom agrees. Thank you for the consultation. [place] [facility] NURSE: -database searched, no information found Kingsley Ng 10/10/22 1305: Attestations Physician Attestation Agree w/findings plan: The patient was seen and exa mined by Ben Klein. I personally developed the care plan, which was continued by the mid-level provider. I was immediately available. at 1528 Electronically Signed by Kingsley Ng MD on 3 at 1308 RPT #:[id number] END OF REPORT 2022-09-24 14:06:00-00:00 [facility]) Endocrinology Progress Note REPORT#:[id number] REPORT STATUS: Signed DATE:09/24/22 TIME: 1406 PATIENT: KARMA ROWLAND UNIT #: [id number] ROOM/BED: [place] [address] : 63 AGE: 56 SEX: M ATTEND: Fredy Vences MD ADM AUTHOR: Braxton Chapin MD * ALL edits or amendments must be made on the el [employer]/computer document * Subjective Patient reports: no complaints Objective General VS: Last Documented: Result Date Time Pulse Ox 97 09/24 8 B/P 160/81 09/24 8 B/P Mean 107.5 09/24 8 O2 Delivery Room air 09/24 8 Temp 36.6 09/24 8 Pulse 87 09/24 8 Resp 16 09/24 8 O2 Flow Rate 2 09/08 1322 PATIENT WEIGHT: Weight (lb): 167 Weight (oz): 12.35 Weight (kg): 76.100 Medications: Active Meds + DC'd Last 24 Hrs Prednisone (predniSONE) 40 MG C BK PO Clonidine HCl (CATAPRES) 0.1 MG Q12HR PO Furosemide (LASIX) 20 MG DAILY PO Insulin Glargine (Semglee) 22 UNIT BEDTIME SUBQ Insulin Human Lispro (HUMALOG) 12 UNIT AC SUBQ Sodium Bicarbonate (SODIUM BICARBONATE) 650 MG B ID PO Sodium Polystyrene Sulfonate (KAYEXELATE) 30 GM Q4H PO (DC) Lactulose (LACTULOSE) 20 GM ONCE ONE PO (DC) Amlodipine Besylate (NORVASC) 10 MG DAILY PO (DC ) Prednisone (predniSONE) 50 MG C BK PO (DC) Hydralazine HCl (APRESOLINE) 100 MG Q8HR PO Insulin Glargine (Semglee) 19 UNIT BEDTIME SUBQ (DC) Insulin Human Lispro (HUMALOG) 10 UNIT AC SUBQ ( DC) Carvedilol (COREG) 25 MG C BK DIN PO Gabapentin (NEURONTIN) 100 MG Q8HR PO Oxycodone/Acetaminophen (PERCOCET 5/325MG TAB) 2 TAB Q4H PRN PRN PO Folic Acid (FOLIC ACID) 2 MG DAILY PO Multivitamins (TAB-A-MOHAN) 1 TAB DAILY PO Furosemide (LASIX 20MG INJ) 20 MG BLOOD-DOSE BET WEEN IV (CKD) Sodium Chloride (SODIUM CHLORIDE) 10 ML ASDIR IV Pantoprazole Sodium (PROTONIX) 40 MG Q12HR IV Polyethylene Glycol (MIRALAX) 17 GM DAILY PO Sennosides (Senna Lax 8.6 MG TABLET) 8.6 MG MADALYN Y PO Sodium Chloride (SODIUM CHLORIDE) 10 ML ASDIR NV N IV Amitriptyline HCl (ELAVIL) 25 MG BEDTIME PO Zinc Oxide (ZINC OXIDE 30 GM OINTMENT) 1 APPLIC DAILY TOPICAL Sterile Water (WATER FOR IRRIGATION) DRESSING CH GELACIO ASDIR PRN IRR Insulin Human Lispro (HUMALOG) 0 AC HS SUBQ Dextrose/Water (DEXTROSE 10% IN WATER) 125 ML DIR PRN IV (CKD) Dextrose/Water (DEXTROSE 10% IN WATER) 250 ML DIR PRN IV (CKD) Glucagon (GLUCAGON) 1 MG ASDIR PRN IM Lidocaine (LIDODERM) 1 PATCH DAILY TOPICAL Acetaminophen (TYLENOL) 650 MG Q6H PRN PRN PO Bisacodyl (DULCOLAX) 10 MG DAILY PRN PRN RECTAL Docusate Sodium (COLACE) 100 MG Q12H PRN PRN PO Hydralazine HCl (APRESOLINE) 10 MG Q6H PRN PRN I V Ondansetron HCl (ZOFRAN) 4 MG Q6H PRN PRN IV Physical Exam General appearance: alert, awake Diagnosis, Assessment Plan Hospital course to date: Laboratory Tests: 09/24 09/24 09/24 09/23 1052 0551 0540 1913 Chemistry Sodium (134 - 147 mEq/L) 144 Potassium (3.4 - 5.0 mEq/L) 5.0 Chloride (100 - 108 mEq/L) 115 H Carbon Dioxide (21 - 33 mEq/l) 19 L Anion Gap (0 - 20) 15 BUN (7 - 18 mg/dL) 60 H Creatinine (0.6 - 1.3 mg/dL) 1.7 H Glomerular Filtr Rate (90 - 95) 46.2 L Glucose (70 - 110 mg/dL) 183 H POC Glucose (70 - 110 MG/DL) 100 176 H 194 H Calcium (8.0 - 10.5 mg/dL) 7.8 L Phosphorus (2.5 - 4.9 MG/DL) 5.4 H Magnesium (1.80 - 2.40 mg/dL) 2.18 Hematology WBC (4.5 - 11.0 x10 3/uL) 13.1 H RBC (4.00 - 5.60 x10 6/uL) 2.67 L Hgb (12.5 - 16.9 g/dL) 7.6 L Hct (37.5 - 50.7 %) 25.0 L MCV (81.0 - 99.0 fL) 93.6 MCH (27.0 - 33.0 pg) 28.5 MCHC (33.0 - 37.0 g/dL) 30.4 L RDW (11.5 - 14.5 %) 16.4 H Plt Count (150 - 400 x10 3/uL) 285 MPV (7.0 - 9.0 fL) 9.6 H Neut % (Auto) (56.0 - 77.0 %) 73.5 Lymph % (Auto) (14.0 - 32.0 %) 14.8 Boundary % (Auto) (4.8 - 9.0 %) 7.6 Eos % (Auto) (0.3 - 3.7 %) 3.0 Baso % (Auto) (0.0 - 2.0 %) 0.0 Neut # (Auto) (2.0 - 7.6 x10 3/uL) 9.62 H Lymph # (Auto) (1.0 - 3.8 x10 3/uL) 1.93 Boundary # (Auto) (0.1 - 0.8 x10 3/uL) 0.99 H Eos # (Auto) (0.0 - 0.2 x10 3/uL) 0.39 H Baso # (Auto) (0.0 - 0.2 x10 3/uL) 0.00 Abs Immat Gran (auto) (0.00 - 0.03 x10 3/uL) 0. 14 H Add Manual Diff NO Immature Gran % (0.0 - 2.0 %) 1.1 Nucleated RBC % (0 - 0 %) 0.0 Nucleated RBCs # (Man) (0.0 - 0.1 x10 3/uL) 0.0 0 09/23 1520 Chemistry POC Glucose (70 - 110 MG/DL) 146 H Laboratory Tests: 09/23 09/23 09/23 09/23 09/22 1050 0516 0501 0331 1841 Chemistry Sodium (134 - 147 mEq/L) 138 Potassium (3.4 - 5.0 mEq/L) 5.6 H Chloride (100 - 108 mEq/L) 112 H Carbon Dioxide (21 - 33 mEq/l) 19 L Anion Gap (0 - 20) 13 BUN (7 - 18 mg/dL) 70 H Creatinine (0.6 - 1.3 mg/dL) 2.1 H Glomerular Filtr Rate (90 - 95) 35.8 L Glucose (70 - 110 mg/dL) 217 H POC Glucose (70 - 110 MG/DL) 231 H 226 H 190 H 156 H Calcium (8.0 - 10.5 mg/dL) 7.8 L Phosphorus (2.5 - 4.9 MG/DL) 5.2 H Magnesium (1.80 - 2.40 mg/dL) 2.22 Hematology WBC (4.5 - 11.0 x10 3/uL) 11.8 H RBC (4.00 - 5.60 x10 6/uL) 2.74 L Hgb (12.5 - 16.9 g/dL) 7.8 L Hct (37.5 - 50.7 %) 25.4 L MCV (81.0 - 99.0 fL) 92.7 MCH (27.0 - 33.0 pg) 28.5 MCHC (33.0 - 37.0 g/dL) 30.7 L RDW (11.5 - 14.5 %) 16.1 H Plt Count (150 - 400 x10 3/uL) 300 MPV (7.0 - 9.0 fL) 9.4 H Neut % (Auto) (56.0 - 77.0 %) 84.8 H Lymph % (Auto) (14.0 - 32.0 %) 9.6 L Boundary % (Auto) (4.8 - 9.0 %) 4.5 L Eos % (Auto) (0.3 - 3.7 %) 0.1 L Baso % (Auto) (0.0 - 2.0 %) 0.1 Neut # (Auto) (2.0 - 7.6 x10 3/uL) 10.02 H Lymph # (Auto) (1.0 - 3.8 x10 3/uL) 1.13 Boundary # (Auto) (0.1 - 0.8 x10 3/uL) 0.53 Eos # (Auto) (0.0 - 0.2 x10 3/uL) 0.01 Baso # (Auto) (0.0 - 0.2 x10 3/uL) 0.01 Abs Immat Gran (auto) (0.00 - 0.03 0.11 H x10 3/uL) Add Manual Diff NO Immature Gran % (0.0 - 2.0 %) 0.9 Nucleated RBC % (0 - 0 %) 0.0 Nucleated RBCs # (Man) (0.0 - 0.1 0.00 x10 3/uL) 09/22 1537 Chemistry POC Glucose (70 - 110 MG/DL) 118 H Laboratory Tests: 09/22 09/22 09/22 09/22 1537 1057 0617 0436 Chemistry POC Glucose (70 - 110 MG/DL) 118 H 170 H 251 H B-Natriuretic Peptide (0 - 100 PG/ML) 251.0 H 09/22 09/21 0436 2047 Chemistry Sodium (134 - 147 mEq/L) 138 Potassium (3.4 - 5.0 mEq/L) 5.1 H Chloride (100 - 108 mEq/L) 111 H Carbon Dioxide (21 - 33 mEq/l) 20 L Anion Gap (0 - 20) 12 BUN (7 - 18 mg/dL) 71 H Creatinine (0.6 - 1.3 mg/dL) 1.8 H Glomerular Filtr Rate (90 - 95) 43.1 L Glucose (70 - 110 mg/dL) 244 H POC Glucose (70 - 110 MG/DL) 251 H Calcium (8.0 - 10.5 mg/dL) 7.3 L Phosphorus (2.5 - 4.9 MG/DL) 5.0 H Magnesium (1.80 - 2.40 mg/dL) 2.13 Total Creatine Kinase (46 - 171 Units/L) 27 L Albumin (3.4 - 5.0 g/dL) 1.80 L Prealbumin (16.0 - 40.0 mg/dL) 16.7 Hematology WBC (4.5 - 11.0 x10 3/uL) 12.0 H RBC (4.00 - 5.60 x10 6/uL) 2.65 L Hgb (12.5 - 16.9 g/dL) 7.7 L Hct (37.5 - 50.7 %) 24.2 L MCV (81.0 - 99.0 fL) 91.3 MCH (27.0 - 33.0 pg) 29.1 MCHC (33.0 - 37.0 g/dL) 31.8 L RDW (11.5 - 14.5 %) 16.0 H Plt Count (150 - 400 x10 3/uL) 305 MPV (7.0 - 9.0 fL) 9.5 H Neut % (Auto) (56.0 - 77.0 %) 81.7 H Lymph % (Auto) (14.0 - 32.0 %) 11.3 L Boundary % (Auto) (4.8 - 9.0 %) 5.7 Eos % (Auto) (0.3 - 3.7 %) 0.2 L Baso % (Auto) (0.0 - 2.0 %) 0.0 Neut # (Auto) (2.0 - 7.6 x10 3/uL) 9.79 H Lymph # (Auto) (1.0 - 3.8 x10 3/uL) 1.35 Boundary # (Auto) (0.1 - 0.8 x10 3/uL) 0.68 Eos # (Auto) (0.0 - 0.2 x10 3/uL) 0.02 Baso # (Auto) (0.0 - 0.2 x10 3/uL) 0.00 Abs Immat Gran (auto) (0.00 - 0.03 x10 3/uL) 0. 13 H Add Manual Diff NO Immature Gran % (0.0 - 2.0 %) 1.1 Nucleated RBC % (0 - 0 %) 0.0 Nucleated RBCs # (Man) (0.0 - 0.1 x10 3/uL) 0.0 0 Laboratory Tests: 09/21 09/21 09/21 09/21 09/21 1552 1437 1107 0530 0500 Chemistry Sodium (134 - 147 mEq/L) 137 Potassium (3.4 - 5.0 mEq/L) 4.6 Chloride (100 - 108 mEq/L) 107 Carbon Dioxide (21 - 33 mEq/l) 22 Anion Gap (0 - 20) 13 BUN (7 - 18 mg/dL) 75 H Creatinine (0.6 - 1.3 mg/dL) 1.9 H Glomerular Filtr Rate (90 - 95) 40.4 L Glucose (70 - 110 mg/dL) 148 H POC Glucose (70 - 110 MG/DL) 170 H 167 H 162 H 155 H Calcium (8.0 - 10.5 mg/dL) 7.5 L Phosphorus (2.5 - 4.9 MG/DL) 5.0 H Magnesium (1.80 - 2.40 mg/dL) 2.06 Hematology WBC (4.5 - 11.0 x10 3/uL) 13.0 H RBC (4.00 - 5.60 x10 6/uL) 2.69 L Hgb (12.5 - 16.9 g/dL) 7.6 L Hct (37.5 - 50.7 %) 23.9 L MCV (81.0 - 99.0 fL) 88.8 MCH (27.0 - 33.0 pg) 28.3 MCHC (33.0 - 37.0 g/dL) 31.8 L RDW (11.5 - 14.5 %) 15.7 H Plt Count (150 - 400 x10 3/uL) 296 MPV (7.0 - 9.0 fL) 9.8 H Neut % (Auto) (56.0 - 77.0 %) 82.2 H Lymph % (Auto) (14.0 - 32.0 %) 11.3 L Boundary % (Auto) (4.8 - 9.0 %) 5.3 Eos % (Auto) (0.3 - 3.7 %) 0.2 L Baso % (Auto) (0.0 - 2.0 %) 0.1 Neut # (Auto) (2.0 - 7.6 x10 3/uL) 10.70 H Lymph # (Auto) (1.0 - 3.8 x10 3/uL) 1.47 Boundary # (Auto) (0.1 - 0.8 x10 3/uL) 0.69 Eos # (Auto) (0.0 - 0.2 x10 3/uL) 0.03 Baso # (Auto) (0.0 - 0.2 x10 3/uL) 0.01 Abs Immat Gran (auto) (0.00 - 0.03 0.12 H x10 3/uL) Add Manual Diff NO Immature Gran % (0.0 - 2.0 %) 0.9 Nucleated RBC % (0 - 0 %) 0.0 Nucleated RBCs # (Man) (0.0 - 0.1 0.00 x10 3/uL) Laboratory Tests: 09/20 09/20 09/20 09/20 09/19 1140 0922 0505 1163 9971 Chemistry Sodium (134 - 147 mEq/L) 136 Potassium (3.4 - 5.0 mEq/L) 4.2 Chloride (100 - 108 mEq/L) 107 Carbon Dioxide (21 - 33 mEq/l) 21 Anion Gap (0 - 20) 12 BUN (7 - 18 mg/dL) 76 H Creatinine (0.6 - 1.3 mg/dL) 2.2 H Glomerular Filtr Rate (90 - 95) 33.9 L Glucose (70 - 110 mg/dL) 301 H POC Glucose (70 - 110 MG/DL) 155 H 299 H 277 H 236 H Calcium (8.0 - 10.5 mg/dL) 7.4 L Phosphorus (2.5 - 4.9 MG/DL) 5.4 H Magnesium (1.80 - 2.40 mg/dL) 2.05 Hematology WBC (4.5 - 11.0 x10 3/uL) 12.3 H RBC (4.00 - 5.60 x10 6/uL) 2.66 L Hgb (12.5 - 16.9 g/dL) 7.6 L Hct (37.5 - 50.7 %) 23.9 L MCV (81.0 - 99.0 fL) 89.8 MCH (27.0 - 33.0 pg) 28.6 MCHC (33.0 - 37.0 g/dL) 31.8 L RDW (11.5 - 14.5 %) 15.3 H Plt Count (150 - 400 x10 3/uL) 302 MPV (7.0 - 9.0 fL) 9.2 H Neut % (Auto) (56.0 - 77.0 %) 79.7 H Lymph % (Auto) (14.0 - 32.0 %) 13.0 L Boundary % (Auto) (4.8 - 9.0 %) 6.2 Eos % (Auto) (0.3 - 3.7 %) 0.2 L Baso % (Auto) (0.0 - 2.0 %) 0.1 Neut # (Auto) (2.0 - 7.6 x10 3/uL) 9.84 H Lymph # (Auto) (1.0 - 3.8 x10 3/uL) 1.60 Boundary # (Auto) (0.1 - 0.8 x10 3/uL) 0.76 Eos # (Auto) (0.0 - 0.2 x10 3/uL) 0.03 Baso # (Auto) (0.0 - 0.2 x10 3/uL) 0.01 Abs Immat Gran (auto) (0.00 - 0.03 0.10 H x10 3/uL) Add Manual Diff NO Immature Gran % (0.0 - 2.0 %) 0.8 Nucleated RBC % (0 - 0 %) 0.0 Nucleated RBCs # (Man) (0.0 - 0.1 0.00 x10 3/uL) Laboratory Tests: 09/19 09/19 09/19 09/18 09/18 1133 0501 0448 2151 1933 Chemistry Sodium (134 - 147 mEq/L) 139 Potassium (3.4 - 5.0 mEq/L) 3.8 Chloride (100 - 108 mEq/L) 108 Carbon Dioxide (21 - 33 mEq/l) 22 Anion Gap (0 - 20) 13 BUN (7 - 18 mg/dL) 72 H Creatinine (0.6 - 1.3 mg/dL) 2.3 H Glomerular Filtr Rate (90 - 95) 32.1 L Glucose (70 - 110 mg/dL) 61 L POC Glucose (70 - 110 MG/DL) 96 162 H 103 70 Calcium (8.0 - 10.5 mg/dL) 7.5 L Phosphorus (2.5 - 4.9 MG/DL) 5.0 H Magnesium (1.80 - 2.40 mg/dL) 1.69 L Hematology WBC (4.5 - 11.0 x10 3/uL) 13.3 H RBC (4.00 - 5.60 x10 6/uL) 2.79 L Hgb (12.5 - 16.9 g/dL) 8.0 L Hct (37.5 - 50.7 %) 25.0 L MCV (81.0 - 99.0 fL) 89.6 MCH (27.0 - 33.0 pg) 28.7 MCHC (33.0 - 37.0 g/dL) 32.0 L RDW (11.5 - 14.5 %) 14.9 H Plt Count (150 - 400 x10 3/uL) 347 MPV (7.0 - 9.0 fL) 9.1 H Neut % (Auto) (56.0 - 77.0 %) 71.4 Lymph % (Auto) (14.0 - 32.0 %) 16.5 Boundary % (Auto) (4.8 - 9.0 %) 8.4 Eos % (Auto) (0.3 - 3.7 %) 2.4 Baso % (Auto) (0.0 - 2.0 %) 0.2 Neut # (Auto) (2.0 - 7.6 x10 3/uL) 9.50 H Lymph # (Auto) (1.0 - 3.8 x10 3/uL) 2.19 Boundary # (Auto) (0.1 - 0.8 x10 3/uL) 1.11 H Eos # (Auto) (0.0 - 0.2 x10 3/uL) 0.32 H Baso # (Auto) (0.0 - 0.2 x10 3/uL) 0.02 Abs Immat Gran (auto) (0.00 - 0.03 0.14 H x10 3/uL) Add Manual Diff NO Immature Gran % (0.0 - 2.0 %) 1.1 Nucleated RBC % (0 - 0 %) 0.0 Nucleated RBCs # (Man) (0.0 - 0.1 0.00 x10 3/uL) 09/18 1611 Chemistry POC Glucose (70 - 110 MG/DL) 118 H Laboratory Tests: 09/18 09/18 09/18 09/18 1611 1102 0906 0540 Chemistry POC Glucose (70 - 110 MG/DL) 118 H 80 171 H 203 H 09/18 09/17 0505 1904 Chemistry Sodium (134 - 147 mEq/L) 138 Potassium (3.4 - 5.0 mEq/L) 4.1 Chloride (100 - 108 mEq/L) 108 Carbon Dioxide (21 - 33 mEq/l) 21 Anion Gap (0 - 20) 13 BUN (7 - 18 mg/dL) 66 H Creatinine (0.6 - 1.3 mg/dL) 2.2 H Glomerular Filtr Rate (90 - 95) 33.9 L Glucose (70 - 110 mg/dL) 201 H POC Glucose (70 - 110 MG/DL) 160 H Calcium (8.0 - 10.5 mg/dL) 7.5 L Phosphorus (2.5 - 4.9 MG/DL) 4.4 Magnesium (1.80 - 2.40 mg/dL) 1.83 Hematology WBC (4.5 - 11.0 x10 3/uL) 10.6 RBC (4.00 - 5.60 x10 6/uL) 2.67 L Hgb (12.5 - 16.9 g/dL) 7.6 L Hct (37.5 - 50.7 %) 23.7 L MCV (81.0 - 99.0 fL) 88.8 MCH (27.0 - 33.0 pg) 28.5 MCHC (33.0 - 37.0 g/dL) 32.1 L RDW (11.5 - 14.5 %) 14.8 H Plt Count (150 - 400 x10 3/uL) 341 MPV (7.0 - 9.0 fL) 9.2 H Neut % (Auto) (56.0 - 77.0 %) 74.6 Lymph % (Auto) (14.0 - 32.0 %) 17.4 Boundary % (Auto) (4.8 - 9.0 %) 6.9 Eos % (Auto) (0.3 - 3.7 %) 0.1 L Baso % (Auto) (0.0 - 2.0 %) 0.1 Neut # (Auto) (2.0 - 7.6 x10 3/uL) 7.91 H Lymph # (Auto) (1.0 - 3.8 x10 3/uL) 1.85 Boundary # (Auto) (0.1 - 0.8 x10 3/uL) 0.73 Eos # (Auto) (0.0 - 0.2 x10 3/uL) 0.01 Baso # (Auto) (0.0 - 0.2 x10 3/uL) 0.01 Abs Immat Gran (auto) (0.00 - 0.03 x10 3/uL) 0. 10 H Add Manual Diff NO Immature Gran % (0.0 - 2.0 %) 0.9 Nucleated RBC % (0 - 0 %) 0.0 Nucleated RBCs # (Man) (0.0 - 0.1 x10 3/uL) 0.0 0 Laboratory Tests: 09/17 09/17 09/17 09/17 09/17 1554 1027 0951 0601 0451 Chemistry POC Glucose (70 - 110 MG/DL) 75 256 H 287 H 286 H 273 H 09/17 09/16 09/16 0450 2345 1931 Chemistry Sodium (134 - 147 mEq/L) 136 Potassium (3.4 - 5.0 mEq/L) 4.5 Chloride (100 - 108 mEq/L) 107 Carbon Dioxide (21 - 33 mEq/l) 21 Anion Gap (0 - 20) 12 BUN (7 - 18 mg/dL) 66 H Creatinine (0.6 - 1.3 mg/dL) 2.4 H Glomerular Filtr Rate (90 - 95) 30.5 L Glucose (70 - 110 mg/dL) 285 H POC Glucose (70 - 110 MG/DL) 291 H 219 H Calcium (8.0 - 10.5 mg/dL) 7.4 L Phosphorus (2.5 - 4.9 MG/DL) 4.5 Magnesium (1.80 - 2.40 mg/dL) 1.97 Hematology WBC (4.5 - 11.0 x10 3/uL) 8.9 RBC (4.00 - 5.60 x10 6/uL) 2.83 L Hgb (12.5 - 16.9 g/dL) 8.1 L Hct (37.5 - 50.7 %) 24.9 L MCV (81.0 - 99.0 fL) 88.0 MCH (27.0 - 33.0 pg) 28.6 MCHC (33.0 - 37.0 g/dL) 32.5 L RDW (11.5 - 14.5 %) 14.6 H Plt Count (150 - 400 x10 3/uL) 374 MPV (7.0 - 9.0 fL) 9.6 H Neut % (Auto) (56.0 - 77.0 %) 85.2 H Lymph % (Auto) (14.0 - 32.0 %) 10.2 L Boundary % (Auto) (4.8 - 9.0 %) 2.9 L Eos % (Auto) (0.3 - 3.7 %) 0.0 L Baso % (Auto) (0.0 - 2.0 %) 0.1 Neut # (Auto) (2.0 - 7.6 x10 3/uL) 7.58 Lymph # (Auto) (1.0 - 3.8 x10 3/uL) 0.91 L Boundary # (Auto) (0.1 - 0.8 x10 3/uL) 0.26 Eos # (Auto) (0.0 - 0.2 x10 3/uL) 0.00 Baso # (Auto) (0.0 - 0.2 x10 3/uL) 0.01 Abs Immat Gran (auto) (0.00 - 0.03 x10 3/uL) 0. 14 H Add Manual Diff NO Immature Gran % (0.0 - 2.0 %) 1.6 Nucleated RBC % (0 - 0 %) 0.0 Nucleated RBCs # (Man) (0.0 - 0.1 x10 3/uL) 0.0 0 Laboratory Tests: 09/16 09/16 09/16 09/16 1549 1441 1110 0553 Chemistry POC Glucose (70 - 110 MG/DL) 62 L 60 L 148 H 19 5 H 09/16 09/15 0455 1937 Chemistry Sodium (134 - 147 mEq/L) 135 Potassium (3.4 - 5.0 mEq/L) 4.5 Chloride (100 - 108 mEq/L) 108 Carbon Dioxide (21 - 33 mEq/l) 20 L Anion Gap (0 - 20) 11 BUN (7 - 18 mg/dL) 60 H Creatinine (0.6 - 1.3 mg/dL) 2.7 H Glomerular Filtr Rate (90 - 95) 26.5 L Glucose (70 - 110 mg/dL) 175 H POC Glucose (70 - 110 MG/DL) 124 H Calcium (8.0 - 10.5 mg/dL) 7.5 L Phosphorus (2.5 - 4.9 MG/DL) 4.6 Magnesium (1.80 - 2.40 mg/dL) 1.93 Hematology WBC (4.5 - 11.0 x10 3/uL) 9.5 RBC (4.00 - 5.60 x10 6/uL) 2.70 L Hgb (12.5 - 16.9 g/dL) 7.6 L Hct (37.5 - 50.7 %) 23.7 L MCV (81.0 - 99.0 fL) 87.8 MCH (27.0 - 33.0 pg) 28.1 MCHC (33.0 - 37.0 g/dL) 32.1 L RDW (11.5 - 14.5 %) 14.6 H Plt Count (150 - 400 x10 3/uL) 360 MPV (7.0 - 9.0 fL) 9.6 H Neut % (Auto) (56.0 - 77.0 %) 73.4 Lymph % (Auto) (14.0 - 32.0 %) 18.6 Boundary % (Auto) (4.8 - 9.0 %) 6.7 Eos % (Auto) (0.3 - 3.7 %) 0.2 L Baso % (Auto) (0.0 - 2.0 %) 0.1 Neut # (Auto) (2.0 - 7.6 x10 3/uL) 6.99 Lymph # (Auto) (1.0 - 3.8 x10 3/uL) 1.77 Boundary # (Auto) (0.1 - 0.8 x10 3/uL) 0.64 Eos # (Auto) (0.0 - 0.2 x10 3/uL) 0.02 Baso # (Auto) (0.0 - 0.2 x10 3/uL) 0.01 Abs Immat Gran (auto) (0.00 - 0.03 x10 3/uL) 0. 10 H Add Manual Diff NO Immature Gran % (0.0 - 2.0 %) 1.0 Nucleated RBC % (0 - 0 %) 0.0 Nucleated RBCs # (Man) (0.0 - 0.1 x10 3/uL) 0.0 0 Laboratory Tests: 09/15 09/15 09/15 09/15 1640 1304 1154 0519 Chemistry POC Glucose (70 - 110 MG/DL) 137 H 126 H 309 H Urines Urine Color (YEL/STRAW) YELLOW Urine Appearance (CLEAR) SL CLOUDY Urine pH (5.0 - 7.0) 5.0 Ur Specific [place] (1.005 - 1.030) 1.013 Urine Protein (NEGATIVE) 2+ H Urine Glucose (UA) (NEGATIVE) 2+ H Urine Ketones (NEGATIVE) NEGATIVE Urine Blood (NEGATIVE) 2+ H Urine Nitrite (NEGATIVE) NEGATIVE Urine Bilirubin (NEGATIVE) NEGATIVE Urine Urobilinogen (0.2 - 1.0 mg/dL) 0.2 Ur Leukocyte Esterase (NEGATIVE) TRACE H Urine RBC (0 - 3 RBC/HPF) 21-50 Urine WBC (0 - 3 WBC/HPF) 4-9 H Ur Squamous Epith Cells (NONE SEEN /HPF) 0-5 Ur Transition Epith Cell (NONE SEEN /HPF) TRACE Urine Bacteria (NONE SEEN /HPF) TRACE Granular Casts (NONE /LPF) 3-5 Urine Mucus (NONE SEEN /LPF) TRACE Ur Random Creatinine (mg/dL) 52.5 U Random Total Protein (mg/dL) 283 09/15 09/14 0515 1931 Chemistry Sodium (134 - 147 mEq/L) 132 L Potassium (3.4 - 5.0 mEq/L) 4.7 Chloride (100 - 108 mEq/L) 105 Carbon Dioxide (21 - 33 mEq/l) 17 L Anion Gap (0 - 20) 15 BUN (7 - 18 mg/dL) 38 H Creatinine (0.6 - 1.3 mg/dL) 2.9 H Glomerular Filtr Rate (90 - 95) 24.3 L Glucose (70 - 110 mg/dL) 312 H POC Glucose (70 - 110 MG/DL) 193 H Calcium (8.0 - 10.5 mg/dL) 7.2 L Phosphorus (2.5 - 4.9 MG/DL) 5.7 H Magnesium (1.80 - 2.40 mg/dL) 1.96 Total Creatine Kinase (46 - 171 Units/L) 26 L Albumin (3.4 - 5.0 g/dL) 1.50 L Prealbumin (16.0 - 40.0 mg/dL) 8.0 L Hematology WBC (4.5 - 11.0 x10 3/uL) 8.7 RBC (4.00 - 5.60 x10 6/uL) 2.88 L Hgb (12.5 - 16.9 g/dL) 8.2 L Hct (37.5 - 50.7 %) 26.5 L MCV (81.0 - 99.0 fL) 92.0 MCH (27.0 - 33.0 pg) 28.5 MCHC (33.0 - 37.0 g/dL) 30.9 L RDW (11.5 - 14.5 %) 14.3 Plt Count (150 - 400 x10 3/uL) 341 MPV (7.0 - 9.0 fL) 9.1 H Neut % (Auto) (56.0 - 77.0 %) 84.9 H Lymph % (Auto) (14.0 - 32.0 %) 11.3 L Boundary % (Auto) (4.8 - 9.0 %) 3.2 L Eos % (Auto) (0.3 - 3.7 %) 0.0 L Baso % (Auto) (0.0 - 2.0 %) 0.1 Neut # (Auto) (2.0 - 7.6 x10 3/uL) 7.35 Lymph # (Auto) (1.0 - 3.8 x10 3/uL) 0.98 L Boundary # (Auto) (0.1 - 0.8 x10 3/uL) 0.28 Eos # (Auto) (0.0 - 0.2 x10 3/uL) 0.00 Baso # (Auto) (0.0 - 0.2 x10 3/uL) 0.01 Abs Immat Gran (auto) (0.00 - 0.03 x10 3/uL) 0. 04 H Add Manual Diff NO Immature Gran % (0.0 - 2.0 %) 0.5 Nucleated RBC % (0 - 0 %) 0.0 Nucleated RBCs # (Man) (0.0 - 0.1 x10 3/uL) 0.0 0 Microbiology: Date/Time Procedure - Status Source Growth 09/15 514 MRSA DNA Surveillance Screen - COMP NASAL Laboratory Tests: 09/14 09/14 09/14 09/14 09/13 1130 0736 0526 05 1937 Chemistry Sodium (134 - 147 mEq/L) 132 L Potassium (3.4 - 5.0 mEq/L) 4.4 Chloride (100 - 108 mEq/L) 104 Carbon Dioxide (21 - 33 mEq/l) 19 L Anion Gap (0 - 20) 14 BUN (7 - 18 mg/dL) 38 H Creatinine (0.6 - 1.3 mg/dL) 2.8 H Glomerular Filtr Rate (90 - 95) 25.4 L Glucose (70 - 110 mg/dL) 325 H POC Glucose (70 - 110 MG/DL) 137 H 290 H 334 H 248 H Calcium (8.0 - 10.5 mg/dL) 7.5 L Hematology WBC (4.5 - 11.0 x10 3/uL) 9.5 RBC (4.00 - 5.60 x10 6/uL) 2.83 L Hgb (12.5 - 16.9 g/dL) 8.0 L Hct (37.5 - 50.7 %) 25.3 L MCV (81.0 - 99.0 fL) 89.4 MCH (27.0 - 33.0 pg) 28.3 MCHC (33.0 - 37.0 g/dL) 31.6 L RDW (11.5 - 14.5 %) 14.0 Plt Count (150 - 400 x10 3/uL) 322 MPV (7.0 - 9.0 fL) 9.3 H Neut % (Auto) (56.0 - 77.0 %) 80.2 H Lymph % (Auto) (14.0 - 32.0 %) 13.9 L Boundary % (Auto) (4.8 - 9.0 %) 5.1 Eos % (Auto) (0.3 - 3.7 %) 0.0 L Baso % (Auto) (0.0 - 2.0 %) 0.1 Neut # (Auto) (2.0 - 7.6 x10 3/uL) 7.58 Lymph # (Auto) (1.0 - 3.8 x10 3/uL) 1.31 Boundary # (Auto) (0.1 - 0.8 x10 3/uL) 0.48 Eos # (Auto) (0.0 - 0.2 x10 3/uL) 0.00 Baso # (Auto) (0.0 - 0.2 x10 3/uL) 0.01 Abs Immat Gran (auto) (0.00 - 0.03 0.07 H x10 3/uL) Add Manual Diff NO Immature Gran % (0.0 - 2.0 %) 0.7 Nucleated RBC % (0 - 0 %) 0.0 Nucleated RBCs # (Man) (0.0 - 0.1 0.00 x10 3/uL) 09/13 1629 Chemistry POC Glucose (70 - 110 MG/DL) 130 H Laboratory Tests: 09/13 09/13 09/13 09/12 1105 1384 8349 2016 Chemistry Sodium (134 - 147 mEq/L) 133 L Potassium (3.4 - 5.0 mEq/L) 4.6 Chloride (100 - 108 mEq/L) 107 Carbon Dioxide (21 - 33 mEq/l) 19 L Anion Gap (0 - 20) 12 BUN (7 - 18 mg/dL) 28 H Creatinine (0.6 - 1.3 mg/dL) 2.7 H Glomerular Filtr Rate (90 - 95) 26.5 L Glucose (70 - 110 mg/dL) 241 H POC Glucose (70 - 110 MG/DL) 307 H 258 H 223 H Calcium (8.0 - 10.5 mg/dL) 7.8 L Phosphorus (2.5 - 4.9 MG/DL) 4.7 Magnesium (1.80 - 2.40 mg/dL) 1.92 Hematology WBC (4.5 - 11.0 x10 3/uL) 9.8 RBC (4.00 - 5.60 x10 6/uL) 2.90 L Hgb (12.5 - 16.9 g/dL) 8.2 L Hct (37.5 - 50.7 %) 25.4 L MCV (81.0 - 99.0 fL) 87.6 MCH (27.0 - 33.0 pg) 28.3 MCHC (33.0 - 37.0 g/dL) 32.3 L RDW (11.5 - 14.5 %) 13.7 Plt Count (150 - 400 x10 3/uL) 288 MPV (7.0 - 9.0 fL) 10.0 H Neut % (Auto) (56.0 - 77.0 %) 85.3 H Lymph % (Auto) (14.0 - 32.0 %) 10.4 L Boundary % (Auto) (4.8 - 9.0 %) 3.5 L Eos % (Auto) (0.3 - 3.7 %) 0.0 L Baso % (Auto) (0.0 - 2.0 %) 0.1 Neut # (Auto) (2.0 - 7.6 x10 3/uL) 8.34 H Lymph # (Auto) (1.0 - 3.8 x10 3/uL) 1.02 Boundary # (Auto) (0.1 - 0.8 x10 3/uL) 0.34 Eos # (Auto) (0.0 - 0.2 x10 3/uL) 0.00 Baso # (Auto) (0.0 - 0.2 x10 3/uL) 0.01 Abs Immat Gran (auto) (0.00 - 0.03 x10 3/uL) 0. 07 H Add Manual Diff NO Immature Gran % (0.0 - 2.0 %) 0.7 Nucleated RBC % (0 - 0 %) 0.0 Nucleated RBCs # (Man) (0.0 - 0.1 x10 3/uL) 0.0 0 Microbiology: Date/Time Procedure - Status Source Growth 09/13 0455 MRSA DNA Surveillance Screen - RECD NASAL Laboratory Tests: 09/12 09/12 09/12 09/12 1606 1115 1105 0604 Chemistry POC Glucose (70 - 110 MG/DL) 150 H 68 L 170 H B-Natriuretic Peptide (0 - 100 PG/ML) 297.0 H Hematology Eos Smear Total Cells NONE SEEN 09/12 09/11 09/11 0420 2130 1933 Chemistry Sodium (134 - 147 mEq/L) 134 Potassium (3.4 - 5.0 mEq/L) 4.2 Chloride (100 - 108 mEq/L) 106 Carbon Dioxide (21 - 33 mEq/l) 20 L Anion Gap (0 - 20) 12 BUN (7 - 18 mg/dL) 31 H Creatinine (0.6 - 1.3 mg/dL) 2.4 H Glomerular Filtr Rate (90 - 95) 30.5 L Glucose (70 - 110 mg/dL) 167 H POC Glucose (70 - 110 MG/DL) 150 H Calcium (8.0 - 10.5 mg/dL) 8.2 Phosphorus (2.5 - 4.9 MG/DL) 4.4 Magnesium (1.80 - 2.40 mg/dL) 1.86 Hematology WBC (4.5 - 11.0 x10 3/uL) 8.8 RBC (4.00 - 5.60 x10 6/uL) 2.73 L Hgb (12.5 - 16.9 g/dL) 7.7 L Hct (37.5 - 50.7 %) 23.7 L MCV (81.0 - 99.0 fL) 86.8 MCH (27.0 - 33.0 pg) 28.2 MCHC (33.0 - 37.0 g/dL) 32.5 L RDW (11.5 - 14.5 %) 13.8 Plt Count (150 - 400 x10 3/uL) 248 MPV (7.0 - 9.0 fL) 9.7 H Neut % (Auto) (56.0 - 77.0 %) 72.3 Lymph % (Auto) (14.0 - 32.0 %) 15.0 Boundary % (Auto) (4.8 - 9.0 %) 7.9 Eos % (Auto) (0.3 - 3.7 %) 3.8 H Baso % (Auto) (0.0 - 2.0 %) 0.3 Neut # (Auto) (2.0 - 7.6 x10 3/uL) 6.34 Lymph # (Auto) (1.0 - 3.8 x10 3/uL) 1.31 Boundary # (Auto) (0.1 - 0.8 x10 3/uL) 0.69 Eos # (Auto) (0.0 - 0.2 x10 3/uL) 0.33 H Baso # (Auto) (0.0 - 0.2 x10 3/uL) 0.03 Abs Immat Gran (auto) (0.00 - 0.03 x10 3/uL) 0. 06 H Add Manual Diff NO Immature Gran % (0.0 - 2.0 %) 0.7 Nucleated RBC % (0 - 0 %) 0.0 Nucleated RBCs # (Man) (0.0 - 0.1 x10 3/uL) 0.0 0 Toxicology Random Vancomycin (mcg/mL) 16.7 Laboratory Tests: 09/11 09/11 09/11 09/11 09/11 1532 1445 1114 0541 0445 Chemistry Sodium (134 - 147 mEq/L) 134 Potassium (3.4 - 5.0 mEq/L) 4.3 Chloride (100 - 108 mEq/L) 105 Carbon Dioxide (21 - 33 mEq/l) 22 Anion Gap (0 - 20) 12 BUN (7 - 18 mg/dL) 26 H Creatinine (0.6 - 1.3 mg/dL) 2.0 H Glomerular Filtr Rate (90 - 95) 38.0 L Glucose (70 - 110 mg/dL) 109 POC Glucose (70 - 110 MG/DL) 93 109 127 H Calcium (8.0 - 10.5 mg/dL) 8.3 Phosphorus (2.5 - 4.9 MG/DL) 4.7 Magnesium (1.80 - 2.40 mg/dL) 1.90 Hematology WBC (4.5 - 11.0 x10 3/uL) 7.9 RBC (4.00 - 5.60 x10 6/uL) 2.94 L Hgb (12.5 - 16.9 g/dL) 8.3 L Hct (37.5 - 50.7 %) 25.8 L MCV (81.0 - 99.0 fL) 87.8 MCH (27.0 - 33.0 pg) 28.2 MCHC (33.0 - 37.0 g/dL) 32.2 L RDW (11.5 - 14.5 %) 13.7 Plt Count (150 - 400 x10 3/uL) 269 MPV (7.0 - 9.0 fL) 9.8 H Neut % (Auto) (56.0 - 77.0 %) 67.9 Lymph % (Auto) (14.0 - 32.0 %) 16.1 Boundary % (Auto) (4.8 - 9.0 %) 9.1 H Eos % (Auto) (0.3 - 3.7 %) 5.6 H Baso % (Auto) (0.0 - 2.0 %) 0.5 Neut # (Auto) (2.0 - 7.6 x10 3/uL) 5.35 Lymph # (Auto) (1.0 - 3.8 x10 3/uL) 1.27 Boundary # (Auto) (0.1 - 0.8 x10 3/uL) 0.72 Eos # (Auto) (0.0 - 0.2 x10 3/uL) 0.44 H Baso # (Auto) (0.0 - 0.2 x10 3/uL) 0.04 Abs Immat Gran (auto) (0.00 - 0.03 0.06 H x10 3/uL) Add Manual Diff NO Immature Gran % (0.0 - 2.0 %) 0.8 Nucleated RBC % (0 - 0 %) 0.0 Nucleated RBCs # (Man) (0.0 - 0.1 0.00 x10 3/uL) Toxicology Random Vancomycin (mcg/mL) 18.3 09/10 1851 Chemistry POC Glucose (70 - 110 MG/DL) 97 Laboratory Tests: 09/10 09/10 09/10 09/10 09/10 1715 1625 1430 1007 0545 Chemistry Sodium (134 - 147 mEq/L) 135 Potassium (3.4 - 5.0 mEq/L) 4.2 Chloride (100 - 108 mEq/L) 107 Carbon Dioxide (21 - 33 mEq/l) 21 Anion Gap (0 - 20) 11 BUN (7 - 18 mg/dL) 25 H Creatinine (0.6 - 1.3 mg/dL) 1.9 H Glomerular Filtr Rate (90 - 95) 40.4 L Glucose (70 - 110 mg/dL) 156 H POC Glucose (70 - 110 MG/DL) 75 58 L 213 H Calcium (8.0 - 10.5 mg/dL) 8.3 Phosphorus (2.5 - 4.9 MG/DL) 4.6 Magnesium (1.80 - 2.40 mg/dL) 1.89 Hematology WBC (4.5 - 11.0 x10 3/uL) 8.6 RBC (4.00 - 5.60 x10 6/uL) 3.08 L Hgb (12.5 - 16.9 g/dL) 8.6 L Hct (37.5 - 50.7 %) 26.7 L MCV (81.0 - 99.0 fL) 86.7 MCH (27.0 - 33.0 pg) 27.9 MCHC (33.0 - 37.0 g/dL) 32.2 L RDW (11.5 - 14.5 %) 13.8 Plt Count (150 - 400 x10 3/uL) 265 MPV (7.0 - 9.0 fL) 9.6 H Neut % (Auto) (56.0 - 77.0 %) 69.4 Lymph % (Auto) (14.0 - 32.0 %) 15.5 Boundary % (Auto) (4.8 - 9.0 %) 8.5 Eos % (Auto) (0.3 - 3.7 %) 5.5 H Baso % (Auto) (0.0 - 2.0 %) 0.4 Neut # (Auto) (2.0 - 7.6 x10 3/uL) 5.94 Lymph # (Auto) (1.0 - 3.8 x10 3/uL) 1.33 Boundary # (Auto) (0.1 - 0.8 x10 3/uL) 0.73 Eos # (Auto) (0.0 - 0.2 x10 3/uL) 0.47 H Baso # (Auto) (0.0 - 0.2 x10 3/uL) 0.03 Abs Immat Gran (auto) (0.00 - 0.03 0.06 H x10 3/uL) Add Manual Diff NO Immature Gran % (0.0 - 2.0 %) 0.7 Nucleated RBC % (0 - 0 %) 0.0 Nucleated RBCs # (Man) (0.0 - 0.1 0.00 x10 3/uL) Toxicology Random Vancomycin (mcg/mL) 15.7 09/10 09/09 0541 1911 Chemistry POC Glucose (70 - 110 MG/DL) 154 H 102 Recent Impressions: ULTRASOUND - US RETROPERITONEAL COM 09/10 1311 Report Impression - Status: SIGNED Entered: 09/10/2022 1503 IMPRESSION: No acute findings. Impression By: Hakeem Jacobo Laboratory Tests: 09/09 09/09 09/09 09/09 09/09 1606 1526 1403 1049 0524 Chemistry POC Glucose (70 - 110 MG/DL) 109 30 L 90 128 H Toxicology Random Vancomycin (mcg/mL) 15.4 09/09 09/08 09/08 0500 1955 1828 Chemistry Sodium (134 - 147 mEq/L) 136 Potassium (3.4 - 5.0 mEq/L) 4.2 Chloride (100 - 108 mEq/L) 107 Carbon Dioxide (21 - 33 mEq/l) 22 Anion Gap (0 - 20) 11 BUN (7 - 18 mg/dL) 23 H Creatinine (0.6 - 1.3 mg/dL) 1.5 H Glomerular Filtr Rate (90 - 95) 53.6 L Glucose (70 - 110 mg/dL) 125 H POC Glucose (70 - 110 MG/DL) 106 Calcium (8.0 - 10.5 mg/dL) 8.2 Phosphorus (2.5 - 4.9 MG/DL) 4.0 Magnesium (1.80 - 2.40 mg/dL) 1.89 Iron (35 - 150 mcg/dL) 10 L TIBC (260 - 445 mcg/dL) 138 L % Saturation (14 - 34 %) 7.2 L Unsat Iron Binding (mcg/dL) 128 Ferritin (23.9 - 336.2 ng/mL) 700.5 H Lactate Dehydrogenase (87 - 241 IUnits/L) 193 Hematology WBC (4.5 - 11.0 x10 3/uL) 9.2 RBC (4.00 - 5.60 x10 6/uL) 3.01 L Hgb (12.5 - 16.9 g/dL) 8.5 L Hct (37.5 - 50.7 %) 25.9 L MCV (81.0 - 99.0 fL) 86.0 MCH (27.0 - 33.0 pg) 28.2 MCHC (33.0 - 37.0 g/dL) 32.8 L RDW (11.5 - 14.5 %) 13.8 Plt Count (150 - 400 x10 3/uL) 263 MPV (7.0 - 9.0 fL) 9.7 H Neut % (Auto) (56.0 - 77.0 %) 69.1 Lymph % (Auto) (14.0 - 32.0 %) 16.1 Boundary % (Auto) (4.8 - 9.0 %) 9.2 H Eos % (Auto) (0.3 - 3.7 %) 4.7 H Baso % (Auto) (0.0 - 2.0 %) 0.4 Neut # (Auto) (2.0 - 7.6 x10 3/uL) 6.38 Lymph # (Auto) (1.0 - 3.8 x10 3/uL) 1.49 Boundary # (Auto) (0.1 - 0.8 x10 3/uL) 0.85 H Eos # (Auto) (0.0 - 0.2 x10 3/uL) 0.43 H Baso # (Auto) (0.0 - 0.2 x10 3/uL) 0.04 Abs Immat Gran (auto) (0.00 - 0.03 x10 3/uL) 0. 05 H Add Manual Diff NO Immature Gran % (0.0 - 2.0 %) 0.5 Nucleated RBC % (0 - 0 %) 0.0 Nucleated RBCs # (Man) (0.0 - 0.1 x10 3/uL) 0.0 0 Retic Count (auto) (0.3 - 2.3 %) 1.3 Laboratory Tests: 09/08 09/08 09/08 09/08 09/08 1611 1318 1045 1033 0616 Chemistry POC Glucose (70 - 110 MG/DL) 120 H 101 99 101 Toxicology Random Vancomycin (mcg/mL) 15.8 09/08 09/07 09/07 0615 7228 2110 Chemistry Sodium (134 - 147 mEq/L) 135 Potassium (3.4 - 5.0 mEq/L) 4.6 Chloride (100 - 108 mEq/L) 107 Carbon Dioxide (21 - 33 mEq/l) 22 Anion Gap (0 - 20) 10 BUN (7 - 18 mg/dL) 22 H Creatinine (0.6 - 1.3 mg/dL) 1.4 H Glomerular Filtr Rate (90 - 95) 58.3 L Glucose (70 - 110 mg/dL) 100 POC Glucose (70 - 110 MG/DL) 135 H 127 H Calcium (8.0 - 10.5 mg/dL) 8.1 Magnesium (1.80 - 2.40 mg/dL) 1.58 L Total Creatine Kinase (46 - 171 Units/L) 22 L Albumin (3.4 - 5.0 g/dL) 1.30 L Prealbumin (16.0 - 40.0 mg/dL) < 5.0 L Hematology WBC (4.5 - 11.0 x10 3/uL) 9.1 RBC (4.00 - 5.60 x10 6/uL) 3.05 L Hgb (12.5 - 16.9 g/dL) 8.5 L Hct (37.5 - 50.7 %) 26.2 L MCV (81.0 - 99.0 fL) 85.9 MCH (27.0 - 33.0 pg) 27.9 MCHC (33.0 - 37.0 g/dL) 32.4 L RDW (11.5 - 14.5 %) 13.5 Plt Count (150 - 400 x10 3/uL) 231 MPV (7.0 - 9.0 fL) 9.6 H Neut % (Auto) (56.0 - 77.0 %) 73.3 Lymph % (Auto) (14.0 - 32.0 %) 13.7 L Boundary % (Auto) (4.8 - 9.0 %) 7.2 Eos % (Auto) (0.3 - 3.7 %) 4.8 H Baso % (Auto) (0.0 - 2.0 %) 0.3 Neut # (Auto) (2.0 - 7.6 x10 3/uL) 6.64 Lymph # (Auto) (1.0 - 3.8 x10 3/uL) 1.24 Boundary # (Auto) (0.1 - 0.8 x10 3/uL) 0.65 Eos # (Auto) (0.0 - 0.2 x10 3/uL) 0.43 H Baso # (Auto) (0.0 - 0.2 x10 3/uL) 0.03 Abs Immat Gran (auto) (0.00 - 0.03 x10 3/uL) 0. 06 H Add Manual Diff NO Immature Gran % (0.0 - 2.0 %) 0.7 Nucleated RBC % (0 - 0 %) 0.0 Nucleated RBCs # (Man) (0.0 - 0.1 x10 3/uL) 0.0 0 Laboratory Tests: 09/07 09/07 09/07 09/07 09/07 1554 1137 1127 0618 0510 Chemistry Creatinine (0.6 - 1.3 mg/dL) 1.4 H POC Glucose (70 - 110 MG/DL) 112 H 51 L 42 L 13 5 H Hematology Hgb (12.5 - 16.9 g/dL) 8.4 L Hct (37.5 - 50.7 %) 26.2 L Toxicology Random Vancomycin (mcg/mL) 14.7 09/06 09/06 2226 2108 Chemistry POC Glucose (70 - 110 MG/DL) 192 H 211 H Laboratory Tests: 09/06 09/06 09/06 09/06 09/06 1553 1547 1051 0538 0536 Chemistry Creatinine (0.6 - 1.3 mg/dL) 1.4 H POC Glucose (70 - 110 MG/DL) 119 H 92 124 H Hematology Hgb (12.5 - 16.9 g/dL) 8.6 L Hct (37.5 - 50.7 %) 26.1 L Toxicology Vancomycin Trough (10.0 - 20.0 mcg/mL) 18.9 09/05 1910 Chemistry POC Glucose (70 - 110 MG/DL) 117 H Laboratory Tests: 09/05 09/05 09/04 09/04 09/04 1149 0615 2042 1630 1557 Chemistry Sodium (134 - 147 mEq/L) 134 Potassium (3.4 - 5.0 mEq/L) 5.0 Chloride (100 - 108 mEq/L) 109 H Carbon Dioxide (21 - 33 mEq/l) 21 Anion Gap (0 - 20) 9 BUN (7 - 18 mg/dL) 24 H Creatinine (0.6 - 1.3 mg/dL) 1.3 Glomerular Filtr Rate (90 - 95) 63.7 L Glucose (70 - 110 mg/dL) 75 POC Glucose (70 - 110 MG/DL) 74 103 128 H Calcium (8.0 - 10.5 mg/dL) 7.9 L Hematology Hgb (12.5 - 16.9 g/dL) 7.1 L Hct (37.5 - 50.7 %) 22.7 L Toxicology Vancomycin Trough (10.0 - 20.0 mcg/mL) 12.8 Microbiology: Date/Time Procedure - Status Source Growth 09/04 1739 Occult Blood - COMP STOOL Recent Impressions: RADIOLOGY - XR ABDOMEN 1V (KUB) 09/04 1648 Report Impression - Status: SIGNED Entered: 09/04/2022 1757 IMPRESSION: Benign appearance of the abdomen. Impression By: [email or web address] - Hakeem Soto ULTRASOUND - [facility] VE[facility] UNI/LTD 09/05 1146 Report Impression - Status: SIGNED Entered: 09/05/2022 1333 IMPRESSION: 1. No evidence of deep vein thrombosis. 2. Complex heterogeneous hypoechoic fluid collec tion in the left calf region measuring 8.4 x 2.8 x 2.5 cm; there is no internal vascularity or peripheral hyperemia. May represe nt a hematoma. Impression By: [email or web address] - Mert Ga M.D. RADIOLOGY - XR CHEST 1 V 09/05 1432 Report Impression - Status: SIGNED Entered: 09/05/2022 1515 IMPRESSION: Minimal bibasilar pulmonary opacities Impression By: TipTDO - Hakeem Perez Laboratory Tests: 09/04 09/04 09/04 09/04 09/04 1630 1557 1100 1031 0816 Chemistry POC Glucose (70 - 110 MG/DL) 128 H 107 99 Hematology Hgb (12.5 - 16.9 g/dL) 7.7 L Hct (37.5 - 50.7 %) 23.7 L Toxicology Vancomycin Trough (10.0 - 20.0 mcg/mL) 12.8 09/04 09/04 09/03 09/03 0721 0540 1944 1836 Chemistry POC Glucose (70 - 110 MG/DL) 87 124 H Hematology Hgb (12.5 - 16.9 g/dL) 6.8 L Hct (37.5 - 50.7 %) 21.2 L Toxicology Vancomycin Peak (30 - 40 MCG/ML) 27.4 L Microbiology: Date/Time Procedure - Status Source Growth 09/04 1037 Occult Blood - COLB STOOL 1.Diabetes mellitus type 2 uncontrolled complica tions. 2. 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 4. Sepsis 5. Prostate abscess. 6. Anemia 7. Chronic renal failure. Blood sugar 183-100 mg/dL.H/H 8.11/17. Adjust insulin dose. PT and OT. If d/c ed,f/u 2 wks. Electronically Signed by Braxton Chapin MD on 08/14 at 1407 RPT #:[id number] END OF REPORT 2022-09-24 10:48:00-00:00 [facility] Discharge Summary REPORT#:[id number] REPORT STATUS: Signed DATE:09/24/22 TIME: 1048 PATIENT: KARMA ROWLAND UNIT #: [id number] ROOM/BED: [place] [id number] : 61 AGE: 56 SEX: M ATTEND: Fredy Vences MD ADM AUTHOR: Guero Candelaria * ALL edits or amendments must be made on the [employer]/computer document * Med Rec Med Rec Discharge meds: Stop taking the following medications: HEPARIN SODIUM,PORCINE (HEPARIN SOD 1ML) 5,000 U NIT/ML VIAL 5,000 UNIT SUBCUTANEOUS EVERY 8 HOURS. Days = 1 4 Qty = 42 hydrALAZINE (APRESOLINE) 20 MG/ML AMPUL 10 MILLIGRAM INTRAVENOUS EVERY 6 HOURS NEEDE D. as needed for SBP GREATER THAN 160 Days = 10 DOCUSATE SODIUM (COLACE) 100 MG CAP 100 MILLIGRAM ORAL EVERY 12 HR NEEDED. as ne eded for CONSTIPATION Days = 14 BISACODYL (DULCOLAX) 10 MG SUPP.RECT 10 MILLIGRAM RECTAL. DAILY NEEDED. as needed for CONSTIPATION, SECOND LINE Days = 14 ONDANSETRON (ONDANSETRON) 4 MG/2 ML VIAL 4 MILLIGRAM INTRAVENOUS EVERY 6 HOURS NEEDED . as needed for N/V IF NOT ON PO DIET Days = 14 INSULIN GLARGINE (LANTUS) 100 UNIT/ML VIAL 15 UNIT SUBCUTANEOUS BEDTIME. Days = 14 INSULIN LISPRO (HumaLOG) 100 UNIT/ML VIAL 0 UNIT SUBCUTANEOUS BEFORE MEALS AND AT BEDTIME . Days = 14 INSULIN LISPRO (HumaLOG) 100 UNIT/ML VIAL 5 UNIT SUBCUTANEOUS BEFORE MEALS. Days = 14 VANCOMYCIN (VANCOCIN) 1 GRAM VIAL 1 GRAM INTRAVENOUS EVERY 12 HOURS. Days = 7 CEFEPIME (MAXIPIME) 1 GRAM VIAL 1 GRAM INTRAVENOUS EVERY 6 HOURS. Days = 28 Start taking the following new medications: amLODIPine (NORVASC) 10 MG TAB 10 MILLIGRAM ORAL DAILY. Qty = 30 No Refills CARVEDILOL (COREG) 12.5 MG TAB 25 MILLIGRAM ORAL WITH BREAKFAST AND DINNER. Qty = 30 No Refills hydrALAZINE (APRESOLINE) 25 MG TAB 100 MILLIGRAM ORAL EVERY 8 HOURS. Qty = 90 No Refills AMITRIPTYLINE (ELAVIL) 25 MG TAB 25 MILLIGRAM ORAL BEDTIME. Qty = 30 No Refills GABAPENTIN (NEURONTIN) 100 MG CAP 100 MILLIGRAM ORAL EVERY 8 HOURS. Qty = 90 No Refills SODIUM BICARBONATE (SODIUM BICARBONATE) 650 MG T AB 650 MILLIGRAM ORAL TWICE DAILY. Qty = 60 No Refills ZINC OXIDE (ZINC OXIDE) 20 % OINT..GM. 1 APPLIC TOPICAL DAILY. Qty = 30 No Refills predniSONE (predniSONE) 10 MG TAB 10 MILLIGRAM ORAL TWICE DAILY. Qty = 40 No Refills Instructions: 40 mg po days 1-4 30 mg po days 5-8 20 mg po days 9-12 10 mg po days 13-16 cloNIDine (cloNIDine) 0.1 MG TAB 0.1 MILLIGRAM ORAL TWICE DAILY. Qty = 60 No Refills FUROSEMIDE (LASIX) 20 MG TAB 20 MILLIGRAM ORAL DAILY. Qty = 30 No Refills Objective Physical Exam VS: Last Documented: Result Date Time Pulse Ox 97 09/24 8 B/P 160/81 09/24 8 B/P Mean 107.5 09/24 8 O2 Delivery Room air 09/24 8 Temp 97.9 09/24 8 Pulse 87 09/24 8 Resp 16 09/24 8 O2 Flow Rate 2 09/08 1322 PATIENT WEIGHT: Weight (lb): 167 Weight (oz): 12.35 Weight (kg): 76.100 General appearance: alert, awake Psych: alert, normal affect, oriented x 3 HEENT: anicteric, sclera clear Neck: supple, no JVD Cardiovascular: S1/S2, no murmur Respiratory: aerating well, clear bilaterally Abdomen: bowel sounds present, non-distended, so ft, non-tender Skin: no rash, R BKA HEALING. 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 __ FUNCTIONAL ACTIVITY ADMISSION STATUS DISCHARGE STATUS Toilet hygiene Partial/moderate (3) Partial/mod erate (3) Toilet transfer Substantial/max (2) Partial/mod erate (3) Eating Supervision/touch (4) Independent (6) Shower/bathing Partial/moderate (3) Setup or cl eanup (5) Dressing upper body Partial/moderate (3) Indepe ndent (6) Dressing lower body Dependent (1) Partial/moder ate (3) Transfer to/from bed to chair Substantial/max ( 2) Supervision/touch (4) Wheel 50ft w/ 2 turns Partial/moderate (3) Inde pendent (6) Wheel 150 ft Partial/moderate (3) Independent ( 6) Walk 50 ft w/ 2 turns Walk 150 ft Four steps __ General Information General Information Date of admission: Date of admission: 09/02/22 Discharge date: 09/24/22 Admission diagnosis: 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 and necrotizing fasciitis S/p surgical debridement and washout 08/28: S/p right Sebastián Leroy Significant impairment in self-care, ADLs and fu nctional mobility Impaired mobility and gait Postoperative pain Diabetic polyneuropathy DKA, DM 2, poorly controlled, A1c greater than 1 4 PAD MRSA bacteremia/sepsis-treated on acute ERIKA Severe hyponatremia-resolved HTN Acute on chronic anemia requiring multiple trans fusions Left calf hematoma Edema and clinical arthritis left ankle Prostatic abscess 08/26: S/p transrectal ultrasound aspiration of ab scess and transurethral resection of prostate and unroofing of abscess Discharge diagnosis: 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 and necrotizing fasciitis S/p surgical debridement and washout 08/28: S/p right Sebastián Leroy Significant impairment in self-care, ADLs and fu nctional mobility Impaired mobility and gait Acute postoperative pain right BKA Diabetic polyneuropathy DKA, DM 2, poorly controlled, A1c greater than 1 4 PAD MRSA bacteremia/sepsis-treated on acute ERIKA Severe hyponatremia-resolved HTN Acute on chronic anemia requiring multiple trans fusions, possible GI bleed Left calf hematoma Edema and clinical arthritis left ankle Early decubitus to left heel/DTI dorsal left mid foot Prostatic abscess 08/26: S/p transrectal ultrasound aspiration of ab scess and transurethral resection of prostate and unroofing of abscess 09/12: Echo: EF 55-59%, grade 1 diastolic dysfunc tion 09/02: JIMENA negative for vegetation MRSA OF NARES 09/08:s/p EGD and colonoscopy. EGD showed mild ga stritis. Colonoscopy showed rectal polyp that was resect ed by snare (tubular adenoma)-repeat colonoscopy in 5 years Hospital course: 56 yo HAM with long h/o DM, and HTN who was admitted for fever, flulike symptoms and altered mental status on 08/18. He was doing well until about 3 days prior to admission when he noted blister to have formed o n the dorsum of his foot. His foot started progressively getting more swollen and the blisters started enlarging and extending to his lateral f oot and ankle. He started feeling weak and nauseated. He was noted to have altered mentation and was brought to our ER. He was noted to be in DKA with Blood sugars grea ter than 600. He was seen by podiatry and surgery for BLE wounds and infectio n. He was treated in ICU for sepsis and DKA. He underwent incisional and excisional debridement of right foot and right ankle by podiatry. Patient also found to have prostate abscess underwent transrectal ultrasound aspiration of a bscess and transurethral resection of prostate and unroofing of abscess b y urology Dr. Bass. Endocrinology treated the DKA and blood sugars m uch improved. Patient's right foot was not salvageable and patient und erwent right BKA by Dr. LEROY on 08/28. Patient blood cultures showe d MRSA. Patient continued on antibiotics as per ID. MRI of the pelvis and foot completed. Patient r equired multiple PRBCs for anemia. Patient was found to have a possible small hematoma of the left calf on ultrasound. He complains of pain and swelling of the left ankle. Patient hemodynamically stable and plans are to be transferred to stepdown unit. He is on heparin subcu for VTE. Af ter surgery he is now being mobilized by PT and OT. He is wearing a [employer] orthotic for right knee /BKA protection. Prior to admission the patient was independent living in a single-story house with his spouse with a few steps up to front and back doo r. 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 is at bedside. Patient denies nausea, vomiting, fever, chills, chest pain, shortness of breath with diz ziness. He is requiring IV Dilaudid for pain control. Mental status back to baseline. Pt is progressing slowly with therapy d/t weakness and pain, self care deficit, decreased endurance and balance, and decreased functional mobility. Pt requiring acute inpt rehab for multidiscipli nary team of nursing, therapy, and physicians. Pt is willing and able to partici- kathleen in 3 hr/day inpt rehab to d/c home safely. Pt' s prior level of function wa s independent. While here, patient worked hard with therapist and made good functional progress. He had worsening renal function for a while, nephrology work ed diligently to get his creatinine to improve back down to 1.7. He will go home with Jarrett ow-up with nephrology next week. Endocrinology also worked hard to keep glucoses under control especially while patient was taking prednisone. He usually takes pills at home for his diabetes but will be on insulin for at l east a short while while tapering from steroids. I discussed these issues with Dr. Chapin today and he will write prescriptions for all insulins. Patient to be di scharged this afternoon Consultants: cardiology, endocrinology, hospital ist, infectious disease, podiatry Pt. condition on discharge: improved Allergies: Allergies: No Known Allergies (Coded, 03/23/11) Discharge Instructions Discharge Instructions Discharge to: Home Health wPlan of Care Additional Discharge Routines: PCP Follow-Up, Co nsultant Follow-Up Diet: Diabetic Activity: As Tolerated Prescriptions: e-prescribe Discharge management: greater than 30 mins Follow-up Appointments PCP: PCP: No Primary or Family Physician PCP follow up timeframe: In 1-2 weeks Consulting provider 1: Provider 1: Barrera Ramírez MD Specialty: Nephrology Consulting provider 2: Provider 2: Gianni Parham MD Specialty: CardiologyInterventional Consulting provider 3: Provider 3: Nixon Leroy MD Specialty: Orthopaedic Surgery Electronically Signed by Guero Candelaria on 0 09/26/22 at 0507 RPT #:[id number] END OF REPORT 2022-09-24 10:31:00-00:00 [facility] Card[facility] Progress Note REPORT#:[id number] REPORT STATUS: Signed DATE:09/24/22 TIME: 1031 PATIENT: KARMA ROWLAND UNIT #: [id number] ROOM/BED: [place] [id number] : 63 AGE: 56 SEX: M ATTEND: Fredy Vences MD ADM AUTHOR: Rohit Benitez CLAY MILLER * ALL edits or amendments must be made on the [employer]/computer document * Rohit Benitez 09/24/22 1031: Subjective Chief complaint: weakness Free Text Subj Notes Free Text Subj Notes: Patient seen and evaluated. Chart reviewed. No n ew symptoms, feeling well. Denies chest pain, palpitati ons, or shortness of breath. Discharge planning for today. Objective General VS/I O: 24 hour I O ending at 0700: 09/24 0700 09/23 1900 Intake Total 240 Output Total 1500 1300 Balance -1260 -1300 Intake, Oral 240 Number 0 Incontinent Voids Number Voids 0 Output, Urine 1500 1300 Vital Signs: Date Time Temp Pulse Resp B/P B/P Pulse O2 O2 F low FiO2 Mean Ox Delivery Rate 09/24 0009 97.9 87 16 160/81 107.5 97 Room air 09/23 1916 97.7 86 16 169/86 113.7 97 Room air 09/23 1521 97.5 82 16 159/82 107.6 97 PATIENT WEIGHT: Weight (lb): 167 Weight (oz): 12.35 Weight (kg): 76.100 Medications: Active Meds + DC'd Last 24 Hrs Prednisone (predniSONE) 40 MG C BK PO Clonidine HCl (CATAPRES) 0.1 MG Q12HR PO Furosemide (LASIX) 20 MG DAILY PO Insulin Glargine (Semglee) 22 UNIT BEDTIME SUBQ Insulin Human Lispro (HUMALOG) 12 UNIT AC SUBQ Sodium Bicarbonate (SODIUM BICARBONATE) 650 MG B ID PO Sodium Polystyrene Sulfonate (KAYEXELATE) 30 GM Q4H PO (DC) Lactulose (LACTULOSE) 20 GM ONCE ONE PO (DC) Amlodipine Besylate (NORVASC) 10 MG DAILY PO (DC ) Prednisone (predniSONE) 50 MG C BK PO (DC) Hydralazine HCl (APRESOLINE) 100 MG Q8HR PO Insulin Glargine (Semglee) 19 UNIT BEDTIME SUBQ (DC) Insulin Human Lispro (HUMALOG) 10 UNIT AC SUBQ ( DC) Carvedilol (COREG) 25 MG C BK DIN PO Gabapentin (NEURONTIN) 100 MG Q8HR PO Oxycodone/Acetaminophen (PERCOCET 5/325MG TAB) 2 TAB Q4H PRN PRN PO Folic Acid (FOLIC ACID) 2 MG DAILY PO Multivitamins (TAB-A-MOHAN) 1 TAB DAILY PO Furosemide (LASIX 20MG INJ) 20 MG BLOOD-DOSE BET WEEN IV (CKD) Sodium Chloride (SODIUM CHLORIDE) 10 ML ASDIR IV Pantoprazole Sodium (PROTONIX) 40 MG Q12HR IV Polyethylene Glycol (MIRALAX) 17 GM DAILY PO Sennosides (Senna Lax 8.6 MG TABLET) 8.6 MG MADALYN Y PO Sodium Chloride (SODIUM CHLORIDE) 10 ML ASDIR NV N IV Amitriptyline HCl (ELAVIL) 25 MG BEDTIME PO Zinc Oxide (ZINC OXIDE 30 GM OINTMENT) 1 APPLIC DAILY TOPICAL Sterile Water (WATER FOR IRRIGATION) DRESSING CH GELACIO ASDIR PRN IRR Insulin Human Lispro (HUMALOG) 0 AC HS SUBQ Dextrose/Water (DEXTROSE 10% IN WATER) 125 ML DIR PRN IV (CKD) Dextrose/Water (DEXTROSE 10% IN WATER) 250 ML DIR PRN IV (CKD) Glucagon (GLUCAGON) 1 MG ASDIR PRN IM Lidocaine (LIDODERM) 1 PATCH DAILY TOPICAL Acetaminophen (TYLENOL) 650 MG Q6H PRN PRN PO Bisacodyl (DULCOLAX) 10 MG DAILY PRN PRN RECTAL Docusate Sodium (COLACE) 100 MG Q12H PRN PRN PO Hydralazine HCl (APRESOLINE) 10 MG Q6H PRN PRN I V Ondansetron HCl (ZOFRAN) 4 MG Q6H PRN PRN IV Physical Exam General appearance: alert, awake, oriented Neck: no bruit/NL carotids, no JVD Cardiovascular: CV assessment: regular rate and rhythm, no ecto py, no gallop Respiratory: clear to auscultation, no distress Abdomen: soft, non-tender Genitourinary: urinary catheter Lower extremity: LE assessment: edema, normal temperature 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 X 3 Considered stroke alert: no Wound/incision: Location: right bka Psychiatry: normal affect, normal judgment/insig ht, normal mood Results Findings/Data: Laboratory Tests 09/24 09/24 09/23 09/23 09/23 0551 0540 1913 1520 1050 Chemistry Sodium (134 - 147 mEq/L) 144 Potassium (3.4 - 5.0 mEq/L) 5.0 Chloride (100 - 108 mEq/L) 115 H Carbon Dioxide (21 - 33 mEq/l) 19 L Anion Gap (0 - 20) 15 BUN (7 - 18 mg/dL) 60 H Creatinine (0.6 - 1.3 mg/dL) 1.7 H Glomerular Filtr Rate (90 - 95) 46.2 L Glucose (70 - 110 mg/dL) 183 H POC Glucose (70 - 110 MG/DL) 176 H 194 H 146 H 231 H Calcium (8.0 - 10.5 mg/dL) 7.8 L Phosphorus (2.5 - 4.9 MG/DL) 5.4 H Magnesium (1.80 - 2.40 mg/dL) 2.18 Laboratory Tests 09/24 0540 Hematology WBC (4.5 - 11.0 x10 3/uL) 13.1 H RBC (4.00 - 5.60 x10 6/uL) 2.67 L Hgb (12.5 - 16.9 g/dL) 7.6 L Hct (37.5 - 50.7 %) 25.0 L MCV (81.0 - 99.0 fL) 93.6 MCH (27.0 - 33.0 pg) 28.5 MCHC (33.0 - 37.0 g/dL) 30.4 L RDW (11.5 - 14.5 %) 16.4 H Plt Count (150 - 400 x10 3/uL) 285 MPV (7.0 - 9.0 fL) 9.6 H Neut % (Auto) (56.0 - 77.0 %) 73.5 Lymph % (Auto) (14.0 - 32.0 %) 14.8 Boundary % (Auto) (4.8 - 9.0 %) 7.6 Eos % (Auto) (0.3 - 3.7 %) 3.0 Baso % (Auto) (0.0 - 2.0 %) 0.0 Neut # (Auto) (2.0 - 7.6 x10 3/uL) 9.62 H Lymph # (Auto) (1.0 - 3.8 x10 3/uL) 1.93 Boundary # (Auto) (0.1 - 0.8 x10 3/uL) 0.99 H Eos # (Auto) (0.0 - 0.2 x10 3/uL) 0.39 H Baso # (Auto) (0.0 - 0.2 x10 3/uL) 0.00 Abs Immat Gran (auto) (0.00 - 0.03 x10 3/uL) 0. 14 H Add Manual Diff NO Immature Gran % (0.0 - 2.0 %) 1.1 Nucleated RBC % (0 - 0 %) 0.0 Nucleated RBCs # (Man) (0.0 - 0.1 x10 3/uL) 0.0 0 Laboratory Tests 09/24 0540 Chemistry Magnesium (1.80 - 2.40 mg/dL) 2.18 Diagnosis, Assessment Plan Consultants: cardiology, endocrinology, hospital ist, infectious disease, podiatry Free Text DxA P Notes Free Text DxA P Notes: Impression: 1. Debility 2. Infected right foot status post BKA 3. Bacteremia 4. Diabetes 5. Hypertension 6. Anemia 7. Acute Diastolic CHF 8. ERIKA 07/2022: Echocardiogram with normal LVEF, grade 1 diastolic dysfunction, mildly dilated LA, and no significant valvular abnormal ities Recommendation: Patient initially presented with DKA and sepsis. Diagnosed with right foot infection, underwent I D, now status post BKA. P atient had persistent bacteremia with MRSA, underwent JIMENA with negativ e findings of endocarditis. Patient now transferred to [facility] for physical therapy. Known cardiac history of hypertension and hyperlipide renetta. Vital signs stable. Echocardiogram with normal LVEF, grade 1 diastolic dysfunction, mildly dila carlos LA, and no significant valvular abnormalities. Continue to monitor bloo d pressure trend. Continue wound care and IV antibiotic therapy. Continue P T/OT. Supportive care. 09/04: Patient complaining of shortness of breath, abdominal distention and lower extremity edema. Renal function and electrolytes stable. Will give one-time dose of IV Lasix 40 mg. Blood pressure stable. P ending abdominal x-ray. Monitor intake and output. Check BMP in the morn ing. Supportive care. Plan of care discussed with patient, RN and Dr. Parham. 09/05: Patient responded well to IV Lasix , good urine output and improvement in shortness of breath. Chest x-ray ordered . Currently on Lasix 20 mg p.o. daily. Continue monitor renal function and electrolyte s. Pending lower extremity Doppler for lower extremity edema. Continue PT/O T. Supportive care. Plan of care discussed with patient, RN and Dr. Parham. 09/08: Blood pressure has been elevated, started on Coreg 3.125 mg twice daily. Continue monitor blood pressure trend and adjust medication as needed. Still having left lower extremity edema, venous Dopple r negative for DVT. continue gentle diuresis with Lasix 20 mg p.o. daily. Rec ommend Oralia wrap. Patient remains anemic, plan for EGD/colonoscopy today. Supportive care. Plan of care discussed with patient, family, RN and Dr. Parham . 09/09: Patient doing well status post EGD /colonoscopy, negative findings for GI bleed. Blood pressure improving, increased on Co reg to 12.5 mg twice daily. Elevated creatinine noted, nephrology following. No new cardiac complaint. Continue wound care. Continue PT/OT. Supportive care. Plan of care discussed with patient, RN and Dr. Parham. 09/10: Blood pressure remained stable on current regimen of Coreg. Patient continue to have left lower extremity edema. Cur rently on Lasix 20 mg daily. Creatinine 1.9 today, continue to monito r. Patient's albumin level was 1.3, it is possible that patient's lower extremity edema could be related to hypoalbuminemia leading to third spacing. Contin ue PT/OT. Supportive care. Plan of care discussed with patient, RN and Dr. Parham. 09/11: Patient doing well from cardiac standpoint . Blood pressure well controlled. Improvement in lower extremity edema with elevating leg while in bed. Creatinine 2.0 today. Denies shortness of b reath. Will hold diuretic for now and monitor renal function. Supportive care. Plan of care discussed with patient, RN and Dr. Parham. 09/12: Creatinine remains elevated at 2.4 today, antibiotic regimen also being adjusted. Patient still with lower extremity rose ma and rales on physical examination. Will check chest x-ray and limited echocardiogram for further evaluation. Check BNP. Continue hold diuretic fo r now. Supportive care. Plan of care discussed with patient, RN and Dr. Parham . 09/15: Repeat echocardiogram showed LVEF of 55 to 60%, no regional wall motion abnormalities, left ventricu lar diastolic function parameters are indeterminate, mildly dilated LA, and no pericardial effusion. BNP elevated 297. Continue to hold diuretic due to Elevate d creatinine, nephrology following and may consider renal biopsy. Continue to monitor fluid volume s tatus. Overall improvement in lower extremity with Oralia wrap. Continue physical therapy. Supportive care. Plan of care discussed with patient, RN and Dr. Parham. 09/16: Blood pressure slightly elevated, started on hydralazine 25 mg every 8 hours. Continue carvedilol monitor blood pressur e trend. Cr. 2.7 today, continue monitor. Tolerating physical therapy. E uvolemic by physical examination. Supportive care. Plan of care discu ssed with patient, RN and Dr. Parham. 09/17: Blood pressure remains elevated, likely re lated to steroid therapy. Hydralazine increased to 50 mg 3 times daily. Ne phrology managing diuretic therapy. Continue monitor renal function and pako ctrolytes. Improvement in lower extremity swelling. Patient denies chest p ain or shortness of breath. Tolerating PT/OT. Supportive care. Plan of care discussed with patient, RN and Dr. Parham. 09/18: Blood pressure remains elevated du e to steroid therapy. Continue monitor blood pressure trend, hydralazine increa sed to 75 mg 3 times daily. Responding to diuretic regimen with Lasix, good urine outpu t. Creatinine improving, 2.2 today. Continue to monitor fluid volume status. Continue physical therapy. Supportive care. Plan of care discussed with lori hart RN and Dr. Parham. 09/19: Blood pressure improving, continue hydrala zine and carvedilol. Overall improvement in fluid volume status. No n ew cardiac complaint. Continue steroid taper per nephrology. Progressing in therapy. Di scharlinda planning. Supportive care. Plan of care discussed with patient, RN an d Dr. Parham. 09/20: Patient doing much bet ter since started on steroid therapy, creatinine is slowly improving, blood pressure overall improvi ng, nephrology is adjusting antihypertensive medication regimen, diuretic re gimen per nephrology, overall stable cardiac status, discussed with patient an d . 09/21: Creatinine now below 2, at 1.9, blood pres sure better controlled with carvedilol and hydralazine, fluid status is improving, continue diuretic regimen per nephrology, supportive care, will follow. 09/22: Patient remains from c ardiac standpoint. Blood pressure elevated, started on amlodipine 10 mg daily. Continue steroid ther apy and diuretic per nephrology. Creatinine 1.8 today. Tolerating phy sical therapy. Discharge planning. Supportive care. Plan of care discusse d with patient, RN and Dr. Parham. 09/23: Blood pressure improving on current regime n. Continue to monitor renal function, creatinine 2.1 today with elevated pot assium, received Kayexalate. Tolerating physical therapy. Supportive care. Pl an of care discussed with patient, RN and Dr. Parham. 09/24: Patient doing well, overall improvement in fluid volume status. Renal function stable. Blood pressure marginally contr olled. Discharge planning for today. Okay to DC from cardiac standpoint with o utpatient follow-up. Supportive care. Plan of care discussed with lori hart RN and Dr. Parham. Gianni Parham 09/27/22 1304: Diagnosis, Assessment Plan Additional comments: Agree with above assessment and plan as document ed by nurse practitioner, continue current management, will follow. Electronically Signed by Rohit Benitez NP on 0 09/24/22 at 1818 at 1655 RPT #:[id number] END OF REPORT 2022-09-24 08:06:00-00:00 [facility] Gastroenterology Progress Note REPORT#:[id number] REPORT STATUS: Signed DATE:09/24/22 TIME: 805 PATIENT: KARMA ROWLAND UNIT #: [id number] ROOM/BED: [place] [id number] : 63 AGE: 56 SEX: M ATTEND: Mj Vences MD ADM AUTHOR: Kassie Avitia MD * ALL edits or amendments must be made on the el [employer]/computer document * Subjective HPI: Patient is a 56-year-old male with history of di abetes mellitus type 2 and hypertension who was initially admitted for alte red mental status and right- sided foot infection. 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 The p atient is anemic with current Hgb 7.1. He has received a total of 3 un its pRBCs during this hospitalization. KUB on 09/04 was negative for acute GI process. T he patient denies overt GIB, dark tarry stools, nausea, a bdominal pain, or vomiting. He has never had EGD or colonoscopy. 09/06: No complaints today. Hemoglobin stable. No overt GI bleed. Plan for colonoscopy and endoscopy on Thursday 09/07: No complaints today. No overt GI bleed. Pl anning for colonoscopy and endoscopy tomorrow 09/08: EGD mild gastritis. colonoscopy rectal eugenia yp s/p snare. No other abnormalities 09/09: doing well. Seen at the gym. No bleeding. 09/10: Doing well. No bleeding. tolerating diet. Movig bowels 09/11: doing well. States his leg swelling is bet ter. Tolerating diet. having normal BM 09/12: dooing well. doing work-out at the gym. To lerating diet. Normal BMs. Stable H/H 09/14-Sitting up in wheelchair, family at bedside . Denies n/v/abd pain/GIB 09/15: Doing well. H/H stable. No melena or BRBPR . No nausea or vomiting. Appetite is well 09/16: doing well. no complaints. eating well 09/17: stable H/H. No complaints. 09/18/22: H/H fluctuating but overall stable 09/19: H/H stable up to 8 today. No complaints. 09/20: Hemoglobin relatively stable. No complaint 09/21: no complaints. feeling well 09/22/2022: doing well. looking forward to be disc harged 09/23/22: stable H/H no bleeding. 09/24: No new events. Patient anticipating dischar ge soon. Patient was constipated and was given laxatives and resulted in multiple bowel movements. Objective Physical Exam HEENT: atraumatic, normocephalic Neck: full range of motion, non-tender Respiratory: symmetric expansion, no distress Abdomen: non-tender, normal bowel sounds, soft, no distention, no guarding Extremities: right BKA Considered stroke alert: no Skin: dry Diagnosis, Assessment Plan Free Text A P: 1. Positive FOBT-and anemia: The patient denies overt GIB, dark tarry stools, nausea, abdominal pain, or vomiting. He is not o n anticoagulation therapy. -Continue PPI. The patient has never had EGD or colonoscopy prior to this admission s/p EGD and colonoscopy. EGD showed mild gastrit is. Colonoscopy showed rectal polyp that was resected by snare. no evidence of bleeding. Pathology of polyp came back as tubular adenoma. recommend repeatin g colonoscopy in 5 years Anemia likely secondary to chronic kidney diseas e and mild oozing from his stump. Can consider video capsule endoscopy as outpt if evidence of dropping H/H H/H remains stable Consider reducing frequency of H/H check tolerating diet and moving his bowels Constipation; laxative as needed Will follow along Consultants: cardiology, endocrinology, hospital ist, infectious disease, podiatry at 0807 RPT #:[id number] END OF REPORT 2022-09-24 08:04:00-00:00 [facility] Hospitalist Progress Note REPORT#:[id number] REPORT STATUS: Signed DATE:09/24/22 TIME: 0804 PATIENT: KARMA ROWLAND UNIT #: [id number] ROOM/BED: [place] [address] : 63 AGE: 56 SEX: M ATTEND: Fredy Vences MD ADM AUTHOR: Wilbert Ramires MD * ALL edits or amendments must be made on the el [employer]computer document * Subjective Chief complaint: follow up s/p BKA. feels ok Review of Systems All systems rev neg: except as noted Objective General VS/I O: Vital Signs: Date Time Temp Pulse Resp B/P B/P Pulse O2 O2 F low FiO2 Mean Ox Delivery Rate 09/24 000 97.9 87 16 160/81 107.5 97 Room air 09/24 1915 97.7 86 16 169/86 113.7 97 Room air 09/23 1521 97.5 82 16 159/82 107.6 97 24 hour I O ending at 0700: 0503 0700 05/02 1900 Intake Total 240 Output Total 1500 1300 Balance -1260 -1300 Intake, Oral 240 Number 0 Incontinent Voids Number Voids 0 Output, Urine 1500 1300 PATIENT WEIGHT: Weight (lb): 167 Weight (oz): 12.35 Weight (kg): 76.100 Medications: Active Meds + DC'd Last 24 Hrs Prednisone (predniSONE) 40 MG C BK PO Furosemide (LASIX) 20 MG DAILY PO Insulin Glargine (Semglee) 22 UNIT BEDTIME SUBQ Insulin Human Lispro (HUMALOG) 12 UNIT AC SUBQ Sodium Bicarbonate (SODIUM BICARBONATE) 650 MG B ID PO Sodium Polystyrene Sulfonate (KAYEXELATE) 30 GM Q4H PO (DC) Lactulose (LACTULOSE) 20 GM ONCE ONE PO (DC) Amlodipine Besylate (NORVASC) 10 MG DAILY PO Prednisone (predniSONE) 50 MG C BK PO (DC) Hydralazine HCl (APRESOLINE) 100 MG Q8HR PO Insulin Glargine (Semglee) 19 UNIT BEDTIME SUBQ (DC) Insulin Human Lispro (HUMALOG) 10 UNIT AC SUBQ ( DC) Carvedilol (COREG) 25 MG C BK DIN PO Gabapentin (NEURONTIN) 100 MG Q8HR PO Oxycodone/Acetaminophen (PERCOCET 5/325MG TAB) 2 TAB Q4H PRN PRN PO Folic Acid (FOLIC ACID) 2 MG DAILY PO Multivitamins (TAB-A-MOHAN) 1 TAB DAILY PO Furosemide (LASIX 20MG INJ) 20 MG BLOOD-DOSE BET WEEN IV (CKD) Sodium Chloride (SODIUM CHLORIDE) 10 ML ASDIR IV Pantoprazole Sodium (PROTONIX) 40 MG Q12HR IV Polyethylene Glycol (MIRALAX) 17 GM DAILY PO Sennosides (Senna Lax 8.6 MG TABLET) 8.6 MG MADALYN Y PO Sodium Chloride (SODIUM CHLORIDE) 10 ML ASDIR P RN IV Amitriptyline HCl (ELAVIL) 25 MG BEDTIME PO Zinc Oxide (ZINC OXIDE 30 GM OINTMENT) 1 APPLIC DAILY TOPICAL Sterile Water (WATER FOR IRRIGATION) DRESSING CH GELACIO ASDIR PRN IRR Insulin Human Lispro (HUMALOG) 0 AC HS SUBQ Dextrose/Water (DEXTROSE 10% IN WATER) 125 ML DIR PRN IV (CKD) Dextrose/Water (DEXTROSE 10% IN WATER) 250 ML DIR PRN IV (CKD) Glucagon (GLUCAGON) 1 MG ASDIR PRN IM Lidocaine (LIDODERM) 1 PATCH DAILY TOPICAL Acetaminophen (TYLENOL) 650 MG Q6H PRN PRN PO Bisacodyl (DULCOLAX) 10 MG DAILY PRN PRN RECTAL Docusate Sodium (COLACE) 100 MG Q12H PRN PRN PO Hydralazine HCl (APRESOLINE) 10 MG Q6H PRN PRN I V Ondansetron HCl (ZOFRAN) 4 MG Q6H PRN PRN IV Physical Exam General appearance: alert, awake, oriented Head/Eyes: atraumatic, normocephalic ENT: moist mucosal membranes Neck: no JVD Cardiovascular: normal heart sounds, regular rat e rhythm Respiratory: aerating well, clear to auscultatio n Abdomen: non-tender, normal bowel sounds Genitourinary: no bladder distention Extremities: edema (1+ pitting edema to thigh), moves all, normal capillary refill Musculoskeletal: normal inspection 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 X 3, 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 Considered stroke alert: no Skin: dry, intact Psychiatry: normal affect, normal judgment/insig ht Results Findings/Data: Laboratory Tests 09/24 09/24 09/23 09/23 09/23 0551 0540 1913 1520 1050 Chemistry Sodium (134 - 147 mEq/L) 144 Potassium (3.4 - 5.0 mEq/L) 5.0 Chloride (100 - 108 mEq/L) 115 H Carbon Dioxide (21 - 33 mEq/l) 19 L Anion Gap (0 - 20) 15 BUN (7 - 18 mg/dL) 60 H Creatinine (0.6 - 1.3 mg/dL) 1.7 H Glomerular Filtr Rate (90 - 95) 46.2 L Glucose (70 - 110 mg/dL) 183 H POC Glucose (70 - 110 MG/DL) 176 H 194 H 146 H 231 H Calcium (8.0 - 10.5 mg/dL) 7.8 L Phosphorus (2.5 - 4.9 MG/DL) 5.4 H Magnesium (1.80 - 2.40 mg/dL) 2.18 Laboratory Tests 09/24 0540 Hematology WBC (4.5 - 11.0 x10 3/uL) 13.1 H RBC (4.00 - 5.60 x10 6/uL) 2.67 L Hgb (12.5 - 16.9 g/dL) 7.6 L Hct (37.5 - 50.7 %) 25.0 L MCV (81.0 - 99.0 fL) 93.6 MCH (27.0 - 33.0 pg) 28.5 MCHC (33.0 - 37.0 g/dL) 30.4 L RDW (11.5 - 14.5 %) 16.4 H Plt Count (150 - 400 x10 3/uL) 285 MPV (7.0 - 9.0 fL) 9.6 H Neut % (Auto) (56.0 - 77.0 %) 73.5 Lymph % (Auto) (14.0 - 32.0 %) 14.8 Boundary % (Auto) (4.8 - 9.0 %) 7.6 Eos % (Auto) (0.3 - 3.7 %) 3.0 Baso % (Auto) (0.0 - 2.0 %) 0.0 Neut # (Auto) (2.0 - 7.6 x10 3/uL) 9.62 H Lymph # (Auto) (1.0 - 3.8 x10 3/uL) 1.93 Boundary # (Auto) (0.1 - 0.8 x10 3/uL) 0.99 H Eos # (Auto) (0.0 - 0.2 x10 3/uL) 0.39 H Baso # (Auto) (0.0 - 0.2 x10 3/uL) 0.00 Abs Immat Gran (auto) (0.00 - 0.03 x10 3/uL) 0. 14 H Add Manual Diff NO Immature Gran % (0.0 - 2.0 %) 1.1 Nucleated RBC % (0 - 0 %) 0.0 Nucleated RBCs # (Man) (0.0 - 0.1 x10 3/uL) 0.0 0 Diagnosis, Assessment Plan Consultants: cardiology, endocrinology, hospital ist, infectious disease, podiatry Free Text DxA P Notes Free text DxA P notes: Gangrene of right foot s/p Below- knee amputatio n Prostate abscess MRSA bacteremia Hx of Diabetes, Diabetic neuropathy HTN ERIKA PLANS: Continue with PT/OT per primary Wound care and Abx as per ID Hepain PPX IV iron BS better but likely to incr ease with re-initiation of steroids x3 days started by Nephrology for AIN - Endo adjusting insulin pain control Edema about the same, Lasix as per renal Hgb stabilized. continue to monitor cardio following creatine improving K+ level ok BP remains elevated on Hydralazine, Coreg and No rvasc - will stop norvasc and add Clonidine 0.1mg po bid. HR in the 80's. cont inue prn BP meds Electronically Signed by Wilbert Ramires MD on at 1459 RPT #:[id number] END OF REPORT 2022-09-24 06:58:00-00:[address] [facility] ([facility]) Nephrology Progress Note REPORT#:[id number] REPORT STATUS: Signed DATE:09/24/22 TIME: 06 PATIENT: KARMA ROWLAND UNIT #: [id number] ROOM/BED: [place] [address] : 63 AGE: 56 SEX: M ATTEND: Fredy Vences MD ADM AUTHOR: Barrera Ramírez MD * ALL edits or amendments must be made on the [employer]/computer document * Subjective Chief complaint: Infected foot HPI: Patient seen and evaluated on 09/09/2022, note [facility], records reviewed and orders placed on 09/08/2022, 56-year-old male with history of diabetes mellitus type 2, hypertension and per ipheral vascular disease who was initially admitted to acute care with altered mental status and rig ht foot infection/gangrene, 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 Patient had persistent anemia requiring blood transfusion. H is fecal occult blood was positive and his creatinine was 1.2 and increase d to 1.4 today, laboratories today showed hemoglobin 8.5, platelet 231, blood count 9.1, sodium 135, potassium 4.6, CO2 22, BUN 22, creatinin e 1.4. Renal consult was requested for evaluation management of pako vated BUN and creatinine and if his decreased GFR is contributing to his anemia. Patient reports: Yes: complaints. Comments: Patient seen and evaluated, HPI no change from i nitial, feels okay. Review of Systems Constitutional: Reports: fatigue. Denies: chills, fever. Skin: Denies: abrasion, bruising. Allergy/Immun: Denies: hives, itching. Eyes: Denies: redness, discharge. ENT: Denies: ear drainage, ear ringing. Respiratory: Denies: hemoptysis, SOB. Cardiovascular: Denies: chest pain, palpitations. Objective General VS/I O: Vital Signs: Date Time Temp Pulse Resp B/P B/P Pulse O2 O2 F low FiO2 Mean Ox Delivery Rate 09/24 0009 36.6 87 16 160/81 107.5 97 Room air 09/23 1916 36.5 86 16 169/86 113.7 97 Room air 09/23 1521 36.4 82 16 159/82 107.6 97 09/23 0725 36.3 88 17 149/69 95.3 98 24 hour I O ending at 0700: 09/24 0700 09/23 1900 Intake Total 240 Output Total 1500 1300 Balance -1260 -1300 Intake, Oral 240 Number 0 Incontinent Voids Number Voids 0 Output, Urine 1500 1300 PATIENT WEIGHT: Weight (lb): 167 Weight (oz): 12.35 Weight (kg): 76.100 Medications Active Meds + DC'd Last 24 Hrs Insulin Glargine (Semglee) 22 UNIT BEDTIME SUBQ Insulin Human Lispro (HUMALOG) 12 UNIT AC SUBQ Sodium Bicarbonate (SODIUM BICARBONATE) 650 MG B ID PO Sodium Polystyrene Sulfonate (KAYEXELATE) 30 GM Q4H PO (DC) Lactulose (LACTULOSE) 20 GM ONCE ONE PO (DC) Amlodipine Besylate (NORVASC) 10 MG DAILY PO Prednisone (predniSONE) 50 MG C BK PO Hydralazine HCl (APRESOLINE) 100 MG Q8HR PO Insulin Glargine (Semglee) 19 UNIT BEDTIME SUBQ (DC) Insulin Human Lispro (HUMALOG) 10 UNIT AC SUBQ ( DC) Carvedilol (COREG) 25 MG C BK DIN PO Gabapentin (NEURONTIN) 100 MG Q8HR PO Oxycodone/Acetaminophen (PERCOCET 5/325MG TAB) 2 TAB Q4H PRN PRN PO Folic Acid (FOLIC ACID) 2 MG DAILY PO Multivitamins (TAB-A-MOHAN) 1 TAB DAILY PO Furosemide (LASIX 20MG INJ) 20 MG BLOOD-DOSE BET WEEN IV (CKD) Sodium Chloride (SODIUM CHLORIDE) 10 ML ASDIR IV Pantoprazole Sodium (PROTONIX) 40 MG Q12HR IV Polyethylene Glycol (MIRALAX) 17 GM DAILY PO Sennosides (Senna Lax 8.6 MG TABLET) 8.6 MG MADALYN Y PO Sodium Chloride (SODIUM CHLORIDE) 10 ML ASDIR NV N IV Amitriptyline HCl (ELAVIL) 25 MG BEDTIME PO Zinc Oxide (ZINC OXIDE 30 GM OINTMENT) 1 APPLIC DAILY TOPICAL Sterile Water (WATER FOR IRRIGATION) DRESSING CH GELACIO ASDIR PRN IRR Insulin Human Lispro (HUMALOG) 0 AC HS SUBQ Dextrose/Water (DEXTROSE 10% IN WATER) 125 ML DIR PRN IV (CKD) Dextrose/Water (DEXTROSE 10% IN WATER) 250 ML DIR PRN IV (CKD) Glucagon (GLUCAGON) 1 MG ASDIR PRN IM Lidocaine (LIDODERM) 1 PATCH DAILY TOPICAL Acetaminophen (TYLENOL) 650 MG Q6H PRN PRN PO Bisacodyl (DULCOLAX) 10 MG DAILY PRN PRN RECTAL Docusate Sodium (COLACE) 100 MG Q12H PRN PRN PO Hydralazine HCl (APRESOLINE) 10 MG Q6H PRN PRN I V Ondansetron HCl (ZOFRAN) 4 MG Q6H PRN PRN IV Physical Exam General appearance: alert, no acute distress Head/eyes: atraumatic, normocephalic ENT: normal nose Neck: non-tender, supple/no meningismus Cardiovascular: normal heart sounds, no rub Respiratory: aerating well, symmetric expansion Abdomen: non-tender, soft Genitourinary: no flank pain Extremities: non-tender, no edema Musculoskeletal: no CVA tenderness, no tendernes s 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, 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 Considered stroke alert: no Skin: dry, intact Results Findings/Data: Laboratory Tests 09/24 09/23 09/23 09/23 09/23 0551 1913 1520 1050 0516 Chemistry POC Glucose (70 - 110 MG/DL) 176 H 194 H 146 H 231 H 226 H 09/23 09/23 09/22 09/22 09/22 0501 0331 1841 1537 1057 Chemistry Sodium (134 - 147 mEq/L) 138 Potassium (3.4 - 5.0 mEq/L) 5.6 H Chloride (100 - 108 mEq/L) 112 H Carbon Dioxide (21 - 33 mEq/l) 19 L Anion Gap (0 - 20) 13 BUN (7 - 18 mg/dL) 70 H Creatinine (0.6 - 1.3 mg/dL) 2.1 H Glomerular Filtr Rate (90 - 95) 35.8 L Glucose (70 - 110 mg/dL) 217 H POC Glucose (70 - 110 MG/DL) 190 H 156 H 118 H 170 H Calcium (8.0 - 10.5 mg/dL) 7.8 L Phosphorus (2.5 - 4.9 MG/DL) 5.2 H Magnesium (1.80 - 2.40 mg/dL) 2.22 09/22 09/22 09/22 09/21 09/21 0617 0436 0436 2047 1552 Chemistry Sodium (134 - 147 mEq/L) 138 Potassium (3.4 - 5.0 mEq/L) 5.1 H Chloride (100 - 108 mEq/L) 111 H Carbon Dioxide (21 - 33 mEq/l) 20 L Anion Gap (0 - 20) 12 BUN (7 - 18 mg/dL) 71 H Creatinine (0.6 - 1.3 mg/dL) 1.8 H Glomerular Filtr Rate (90 - 95) 43.1 L Glucose (70 - 110 mg/dL) 244 H POC Glucose (70 - 110 MG/DL) 251 H 251 H 170 H Calcium (8.0 - 10.5 mg/dL) 7.3 L Phosphorus (2.5 - 4.9 MG/DL) 5.0 H Magnesium (1.80 - 2.40 mg/dL) 2.13 Total Creatine Kinase (46 - 171 Units/L) 27 L B-Natriuretic Peptide (0 - 100 PG/ML) 251.0 H Albumin (3.4 - 5.0 g/dL) 1.80 L Prealbumin (16.0 - 40.0 mg/dL) 16.7 09/21 09/21 1437 1107 Chemistry POC Glucose (70 - 110 MG/DL) 167 H 162 H Laboratory Tests 09/23 09/22 0501 0436 Hematology WBC (4.5 - 11.0 x10 3/uL) 11.8 H 12.0 H RBC (4.00 - 5.60 x10 6/uL) 2.74 L 2.65 L Hgb (12.5 - 16.9 g/dL) 7.8 L 7.7 L Hct (37.5 - 50.7 %) 25.4 L 24.2 L MCV (81.0 - 99.0 fL) 92.7 91.3 MCH (27.0 - 33.0 pg) 28.5 29.1 MCHC (33.0 - 37.0 g/dL) 30.7 L 31.8 L RDW (11.5 - 14.5 %) 16.1 H 16.0 H Plt Count (150 - 400 x10 3/uL) 300 305 MPV (7.0 - 9.0 fL) 9.4 H 9.5 H Neut % (Auto) (56.0 - 77.0 %) 84.8 H 81.7 H Lymph % (Auto) (14.0 - 32.0 %) 9.6 L 11.3 L Boundary % (Auto) (4.8 - 9.0 %) 4.5 L 5.7 Eos % (Auto) (0.3 - 3.7 %) 0.1 L 0.2 L Baso % (Auto) (0.0 - 2.0 %) 0.1 0.0 Neut # (Auto) (2.0 - 7.6 x10 3/uL) 10.02 H 9.79 H Lymph # (Auto) (1.0 - 3.8 x10 3/uL) 1.13 1.35 Boundary # (Auto) (0.1 - 0.8 x10 3/uL) 0.53 0.68 Eos # (Auto) (0.0 - 0.2 x10 3/uL) 0.01 0.02 Baso # (Auto) (0.0 - 0.2 x10 3/uL) 0.01 0.00 Abs Immat Gran (auto) (0.00 - 0.03 x10 3/uL) 0. 11 H 0.13 H Add Manual Diff NO NO Immature Gran % (0.0 - 2.0 %) 0.9 1.1 Nucleated RBC % (0 - 0 %) 0.0 0.0 Nucleated RBCs # (Man) (0.0 - 0.1 x10 3/uL) 0.0 0 0.00 Laboratory Tests 09/24 09/23 09/23 09/23 0551 1913 1520 1050 Chemistry POC Glucose (70 - 110 MG/DL) 176 H 194 H 146 H 231 H Diagnosis, Assessment Plan Free Text A P: Patient seen and evaluated, discussed with care team, images and laboratories reviewed. Diabetes mellitus: Insulin: Monitor bloo d sugar closely and adjust medications as needed, followed by endocrinology. Hypertension: Blood pressure is not well controlled, increase Coreg to 12.5 mg p.o. 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 We will check serum immu nofixation. Acute kidney injury: We will check renal bladder ultrasound, check postvoid residual, check urine protein creatinine ratio Hypomagnesemia: We will supplement 09/10/2022 laboratory this mo rning showed sodium 135, potassium 4.2, CO2 21, BUN 25, creatinine 1.9 continues to worsen, etiology unclear, however his development some eosinophili a not sure if he is developing AIN, suggest changing cefepime to a different class of antibiotic if p ossible, will check renal bladder ultrasound 09/11/2022 laboratory this mo rning showed sodium 134, potassium 4.3, CO2 22, BUN 26, creatinine 2 up from 1.9, hopefully creatini ne is plateauing, renal ultrasound negative. 09/12/2022 laboratory this mo rning showed sodium 134, potassium 4.2, CO2 20, BUN 31, creatinine 2.4 continues to worsen, discussed with ID, AIN is probably the etiology of the unexplained deterioration of his renal function, antibiotics to be adjusted by infectious disease, will give Solu-Medrol 125 mg IV daily for 3 days. Significant lower extremity edema, will st art Lasix 20 mg p.o. twice daily. 09.13.22: pt was seen and examined. Very thirsty. serum creatinine is worsening today. Vancomycin was stopped yesterday and Solu medrol was started. Mild hypovolemic hyponatremia. Will DC lasix and monitor his renal functions. BP is well controlled. 09.14.22: pt was seen and exa mined. Feels better but still thirsty. I stopped his lasix. will start NS at 75 c c for one Leter only. serum creatinine is improving. Received three doses of Solu Medrol a well. BP i s on the higher side, likely secondary to steroids. will monitor for now. mild hypovelmic hyponatremia. also could be secondary to hyperglycemia. 09/15/2022 we will give additional dose of Solu-M edrol 125 mg IV today, laboratory this morning show ed sodium 132, potassium 4.7, CO2 17, chloride 105, BUN 38, creatinine 2.9, glucose 312, hem oglobin 8.2, platelet 341, blood count 8.7, needs better blood sugar control, if creati nine does not start improving the next couple days will plan for kidney biopsy 09/16/2022 laboratory this mo rning showed sodium 135, potassium 4.5, CO2 20, BUN 60, creatinine 2.7, better down from 2.9, hemogl obin 7.6, platelet 360, blood count 9.5, will give prednisone 80 mg p.o. today , blood pressure is elevated, will add hydralazine 25 mg p .o. 3 times daily, scrotal and LE swelling will give Lasix 40 mg IV x 3 09/17/2022 blood pressure sti ll elevated, will increase hydralazine to 50 mg p.o. 3 times daily, will give 80 mg of prednisone today, urine output with Lasix 4125 , laboratory this morning showed sodium 136, pot assium 4.5, CO2 21, BUN 66, creatinine 2.4 down from 2.7, will give 3 more doses of IV Lasix 40 mg every 8 hours 09/18/2022 laboratory this mo rning showed sodium 138, potassium 4.1, CO2 21, BUN 66, creatinine 2.2 continues to improve, urine o utput 2.7 L, hemoglobin 7.6, platelet 341, blood count 10.6, will give Lasix 40 mg IV every 8 for 3 doses, start prednisone 60 mg p.o. daily for 3 days, increase hydralazine to 75 mg p.o. 3 times daily. 09/19/2022 blood pressure better, sodium 139, pot assium 3.8, CO2 22, BUN 72 up from 66, creatinine 2.3 up from 2.2, will hold o ff diuretics, urine output reported 2 L, magnesium 1.69 we will give magnesium sulfate 2 g IV x1, continue prednisone. 09/20/2022 laboratory this mo rning showed sodium 136, potassium 4.2, CO2 21, BUN 76, creatinine 2.2 down from 2.3, hemoglobin 7.6, platelet 302, blood count 12.3 , continue off diuretics 09/21/2022 blood pressure sti ll elevated will increase hydralazine to 100 mg p.o. 3 times daily, hemoglobin 7.6, platelet 296, blo od count 13, urine output reported 3025, will start prednisone 50 mg p.o. daily for 3 days, sodium 137, potassium 4.6, CO2 22, BUN 75, creatinine 1.9 do wn from 2.2 continues to improve. 09/22/2022 laboratory this morning showed sodium 138, potassium 5.1, CO2 20, BUN 71, creatinine 1.8 down from 1.9 continues to im prove, continue prednisone, hemoglobin 7.7, platelet 305 , blood count 12, blood pressure still elevated will add Norvasc 10 mg p.o. daily. 09/23/2022 laboratory this morning showed sodium 138, potassium 5.6 we will give Kayexalate 30 g p.o. x2 doses, CO2 19 trending d own, will start sodium bicarbonate 1 p.o. twice cody ly, BUN 70, creatinine 2.1, if creatinine continues to be elevated, will schedul e kidney biopsy, hemoglobin 7.8, platelet 306, blood count 11.8 09/24/2022 laboratory this morning showed sodium 144, potassium 5 better, CO2 19 continues sodium bicarbonate , BUN 60 down from 70, creatinine 1.7 down from 2.1, will start Lasix 20 mg p.o. daily, prednisone 40 mg p.o. daily starting tomorrow , okay for discharge home fr om renal standpoint on 40 mg of prednisone with 5 mg taper every 4 days until off prednisone, sodium bicarbonate 650 mg p.o. 1 twice a day and Lasix 20 mg p.o. daily. Follow[place]up in [place] in 2 weeks with labs. Consultants: cardiology, endocrinology, hospital ist, infectious disease, podiatry Electronically Signed by Barrera Ramírez MD on at 0948 RPT #:[id number] END OF REPORT 2022-09-23 19:59:00-00:00 [facility] ([facility]) Podiatry Progress Note REPORT#:[id number] REPORT STATUS: Signed DATE:09/23/22 TIME: 1958 PATIENT: KARMA ROWLAND UNIT #: [id number] ROOM/BED: [place] [address] : 63 AGE: 56 SEX: M ATTEND: Fredy Vences MD ADM AUTHOR: Liam Pedersen DPM * ALL edits or amendments must be made on the [employer] document * Subjective Chief complaint: left heel ulcer. left ankle pain Patient reports: no confusion, no dizzin ess, no fatigue, no itching, no nausea Objective General VS: Last Documented: Result Date Time Pulse Ox 97 09/24 1915 B/P 169/86 09/24 1915 B/P Mean 113.7 09/24 1915 O2 Delivery Room air 09/24 1915 Temp 36.5 09/24 1915 Pulse 86 09/24 1915 Resp 16 09/24 1915 O2 Flow Rate 2 09/08 1322 PATIENT WEIGHT: Weight (lb): 167 Weight (oz): 12.35 Weight (kg): 76.100 Medications: Active Meds + DC'd Last 24 Hrs Insulin Glargine (Semglee) 22 UNIT BEDTIME SUBQ Insulin Human Lispro (HUMALOG) 12 UNIT AC SUBQ Sodium Bicarbonate (SODIUM BICARBONATE) 650 MG BID PO Sodium Polystyrene Sulfonate (KAYEXELATE) 30 GM Q4H PO (DC) Lactulose (LACTULOSE) 20 GM ONCE ONE PO (DC) Amlodipine Besylate (NORVASC) 10 MG DAILY PO Prednisone (predniSONE) 50 MG C BK PO Hydralazine HCl (APRESOLINE) 100 MG Q8HR PO Insulin Glargine (Semglee) 19 UNIT BEDTIME SUBQ (DC) Insulin Human Lispro (HUMALOG) 10 UNIT AC SUBQ ( DC) Carvedilol (COREG) 25 MG C BK DIN PO Gabapentin (NEURONTIN) 100 MG Q8HR PO Oxycodone/Acetaminophen (PERCOCET 5/325MG TAB) 2 TAB Q4H PRN PRN PO Folic Acid (FOLIC ACID) 2 MG DAILY PO Multivitamins (TAB-A-MOHAN) 1 TAB DAILY PO Furosemide (LASIX 20MG INJ) 20 MG BLOOD-DOSE BET WEEN IV (CKD) Sodium Chloride (SODIUM CHLORIDE) 10 ML ASDIR IV Pantoprazole Sodium (PROTONIX) 40 MG Q12HR IV Polyethylene Glycol (MIRALAX) 17 GM DAILY PO Sennosides (Senna Lax 8.6 MG TABLET) 8.6 MG MADALYN Y PO Sodium Chloride (SODIUM CHLORIDE) 10 ML ASDIR NV N IV Amitriptyline HCl (ELAVIL) 25 MG BEDTIME PO Zinc Oxide (ZINC OXIDE 30 GM OINTMENT) 1 APPLIC DAILY TOPICAL Sterile Water (WATER FOR IRRIGATION) DRESSING CH GELACIO ASDIR PRN IRR Insulin Human Lispro (HUMALOG) 0 AC HS SUBQ Dextrose/Water (DEXTROSE 10% IN WATER) 125 ML DIR PRN IV (CKD) Dextrose/Water (DEXTROSE 10% IN WATER) 250 ML A SDIR PRN IV (CKD) Glucagon (GLUCAGON) 1 MG ASDIR PRN IM Lidocaine (LIDODERM) 1 PATCH DAILY TOPICAL Acetaminophen (TYLENOL) 650 MG Q6H PRN PRN PO Bisacodyl (DULCOLAX) 10 MG DAILY PRN PRN RECTAL Docusate Sodium (COLACE) 100 MG Q12H PRN PRN PO Hydralazine HCl (APRESOLINE) 10 MG Q6H PRN PRN I V Ondansetron HCl (ZOFRAN) 4 MG Q6H PRN PRN IV I O: 24 hour I O ending at 0700: 05/02 0700 05/01 1900 Intake Total 240 1000 Output Total 700 Balance 240 300 Intake, Oral 240 1000 Number 0 Incontinent Voids Number Voids 0 Output, Urine 700 Output, 0 Urine/Stool Mix Dietitian nutrition assessment The data set between the solid lines has been im ported from the dietitian's assessment. BMI Calculated: 27.1 Nutrition related diagnosis: Nutrition diagnosis details: Nutrition problem: Altered nutrition labs Nutrition etiology: DM Nutrition signs and symptoms: HYPER/HYPOGLYCEMIA , A1C >14 Nutrition prescription: CONTINUE RENAL DM DIET Dietitian name: You Palmer, DIET Assessment completed: 09/18/22 Physical Exam General appearance: alert, awake, oriented Wound/incision: Location: left foot Site condition: dp/pt 2/4 left. light touch dec reased left foot. ulcer starting at posterior left heel. eccymosis noted . early likely stage 1. left ankle has edema. pain with aggressive ROM left a nkle. dorsal left midfoot is starting to have tissue injury LE vascular pulse assess: 2+ L posterior tibialis, 2+ L dorsalis pedis Considered stroke alert: no Ulcer: Location: DTI dorsal left midfoot Results Findings/Data: Laboratory Tests: 09/23 09/23 09/23 09/23 09/23 1913 1520 1050 0516 0501 Chemistry Sodium (134 - 147 mEq/L) 138 Potassium (3.4 - 5.0 mEq/L) 5.6 H Chloride (100 - 108 mEq/L) 112 H Carbon Dioxide (21 - 33 mEq/l) 19 L Anion Gap (0 - 20) 13 BUN (7 - 18 mg/dL) 70 H Creatinine (0.6 - 1.3 mg/dL) 2.1 H Glomerular Filtr Rate (90 - 95) 35.8 L Glucose (70 - 110 mg/dL) 217 H POC Glucose (70 - 110 MG/DL) 194 H 146 H 231 H 226 H Calcium (8.0 - 10.5 mg/dL) 7.8 L Phosphorus (2.5 - 4.9 MG/DL) 5.2 H Magnesium (1.80 - 2.40 mg/dL) 2.22 Hematology WBC (4.5 - 11.0 x10 3/uL) 11.8 H RBC (4.00 - 5.60 x10 6/uL) 2.74 L Hgb (12.5 - 16.9 g/dL) 7.8 L Hct (37.5 - 50.7 %) 25.4 L MCV (81.0 - 99.0 fL) 92.7 MCH (27.0 - 33.0 pg) 28.5 MCHC (33.0 - 37.0 g/dL) 30.7 L RDW (11.5 - 14.5 %) 16.1 H Plt Count (150 - 400 x10 3/uL) 300 MPV (7.0 - 9.0 fL) 9.4 H Neut % (Auto) (56.0 - 77.0 %) 84.8 H Lymph % (Auto) (14.0 - 32.0 %) 9.6 L Boundary % (Auto) (4.8 - 9.0 %) 4.5 L Eos % (Auto) (0.3 - 3.7 %) 0.1 L Baso % (Auto) (0.0 - 2.0 %) 0.1 Neut # (Auto) (2.0 - 7.6 x10 3/uL) 10.02 H Lymph # (Auto) (1.0 - 3.8 x10 3/uL) 1.13 Boundary # (Auto) (0.1 - 0.8 x10 3/uL) 0.53 Eos # (Auto) (0.0 - 0.2 x10 3/uL) 0.01 Baso # (Auto) (0.0 - 0.2 x10 3/uL) 0.01 Abs Immat Gran (auto) (0.00 - 0.03 0.11 H x10 3/uL) Add Manual Diff NO Immature Gran % (0.0 - 2.0 %) 0.9 Nucleated RBC % (0 - 0 %) 0.0 Nucleated RBCs # (Man) (0.0 - 0.1 0.00 x10 3/uL) 09/23 0331 Chemistry POC Glucose (70 - 110 MG/DL) 190 H Diagnosis, Assessment Plan Free Text A P: DM with neuropathy early decub ulcer left heel OA/edema left ankle early ulcer/DTI dorsal left midfoot zinc oxide to foot and heel foam to heel on IV abx on PO gabapentin offloading boot oralia wraps to ankle, only when OOB with therapy. zinc oxide interchange with bactroban to dorsal left foot Consultants: cardiology, endocrinology, hospital ist, infectious disease, podiatry Electronically Signed by Liam Pedersen DPCandelaria on 0 09/23/22 at 1959 RPT #:[id number] END OF REPORT 2022-09-23 15:10:00-00:[address] [facility] ([facility]) Pain Management Progress Note REPORT#:[id number] REPORT STATUS: Signed DATE:09/23/22 TIME: 1509 PATIENT: KARMA ROWLAND UNIT #: [id number] ROOM/BED: [place] [address] : 61 AGE: 56 SEX: M ATTEND: Fredy Vences MD ADM AUTHOR: Ben Klein * ALL edits or amendments must be made on the [employer]/computer document * Ben Klein 09/23/22 1510: Subjective Chief complaint: Patient seen and examined. Chart/MAR reviewed. Patient slept well overnight. No acute concerns. Pain control is good. No aggravating neuropathy symptoms or muscle spasms . Patient being seen for Acute postoperative pain, right foot and ankle gangrene, requiring BKA, Neuropathy, Constipatio n Patient is still requiring medications to help w ith managing current problems. No fever/chills, chest pain, orthopnea, nausea/v omiting, pruritus, or hallucinations. 14 point ROS undertaken unremarkable except as n oted Objective General VS/I O: Vital Signs Date Temp Pulse Resp B/P B/P Mean Pulse Ox FiO2 /-09/23 36.3-37.2 84-90 16-18 122-149/64-74 83.1-98.0 96-100 Last Documented: Result Date Time Pulse Ox 98 09/23 0725 B/P 149/69 09/23 0725 B/P Mean 95.3 09/23 0725 Temp 36.3 09/23 0725 Pulse 88 09/23 0725 Resp 17 09/23 0725 O2 Delivery Room air 09/22 2310 O2 Flow Rate 2 09/08 1322 24 hour I O ending at 0700: 09/23 0700 09/22 1900 Intake Total 240 1000 Output Total 700 Balance 240 300 Intake, Oral 240 1000 Number 0 Incontinent Voids Number Voids 0 Output, Urine 700 Output, 0 Urine/Stool Mix PATIENT WEIGHT: Weight (lb): 167 Weight (oz): 12.35 Weight (kg): 76.100 Medications: Active Meds + DC'd Last 24 Hrs Insulin Glargine (Semglee) 22 UNIT BEDTIME SUBQ Insulin Human Lispro (HUMALOG) 12 UNIT AC SUBQ Sodium Bicarbonate (SODIUM BICARBONATE) 650 MG B ID PO Sodium Polystyrene Sulfonate (KAYEXELATE) 30 GM Q4H PO (DC) Lactulose (LACTULOSE) 20 GM ONCE ONE PO Amlodipine Besylate (NORVASC) 10 MG DAILY PO Prednisone (predniSONE) 50 MG C BK PO Hydralazine HCl (APRESOLINE) 100 MG Q8HR PO Insulin Glargine (Semglee) 19 UNIT BEDTIME SUBQ (DC) Insulin Human Lispro (HUMALOG) 10 UNIT AC SUBQ ( DC) Carvedilol (COREG) 25 MG C BK DIN PO Gabapentin (NEURONTIN) 100 MG Q8HR PO Oxycodone/Acetaminophen (PERCOCET 5/325MG TAB) 2 TAB Q4H PRN PRN PO Folic Acid (FOLIC ACID) 2 MG DAILY PO Multivitamins (TAB-A-MOHAN) 1 TAB DAILY PO Furosemide (LASIX 20MG INJ) 20 MG BLOOD-DOSE BET WEEN IV (CKD) Sodium Chloride (SODIUM CHLORIDE) 10 ML ASDIR IV Pantoprazole Sodium (PROTONIX) 40 MG Q12HR IV Polyethylene Glycol (MIRALAX) 17 GM DAILY PO Sennosides (Senna Lax 8.6 MG TABLET) 8.6 MG MADALYN Y PO Sodium Chloride (SODIUM CHLORIDE) 10 ML ASDIR NV N IV Amitriptyline HCl (ELAVIL) 25 MG BEDTIME PO Zinc Oxide (ZINC OXIDE 30 GM OINTMENT) 1 APPLIC DAILY TOPICAL Sterile Water (WATER FOR IRRIGATION) DRESSING CH GELACIO ASDIR PRN IRR Insulin Human Lispro (HUMALOG) 0 AC HS SUBQ Dextrose/Water (DEXTROSE 10% IN WATER) 125 ML DIR PRN IV (CKD) Dextrose/Water (DEXTROSE 10% IN WATER) 250 ML DIR PRN IV (CKD) Glucagon (GLUCAGON) 1 MG ASDIR PRN IM Lidocaine (LIDODERM) 1 PATCH DAILY TOPICAL Acetaminophen (TYLENOL) 650 MG Q6H PRN PRN PO Bisacodyl (DULCOLAX) 10 MG DAILY PRN PRN RECTAL Docusate Sodium (COLACE) 100 MG Q12H PRN PRN PO Hydralazine HCl (APRESOLINE) 10 MG Q6H PRN PRN I V Ondansetron HCl (ZOFRAN) 4 MG Q6H PRN PRN IV Physical Exam General appearance: alert, awake, oriented, no a cute distress Head/eyes: atraumatic, EOMI, normocephalic, norm al conjunctiva/sclera, PERRLA ENT: normal nose, normal pharynx, moist mucosal membranes Neck: full range of motion, no lymphadenopathy, supple/no meningismus Cardiovascular: regular rate rhythm Respiratory: aerating well Abdomen: soft, non-tender, no distention , active bowel sounds in all quarants. 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: 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, no sensory deficit s, CNII-XII grossly intact Considered stroke alert: no Skin: dry, intact, no rash Lymphatics: axilla normal Psychiatry: normal affect, normal judgment/insig ht Results Findings/data: Laboratory Tests: 09/23 09/23 09/23 09/23 09/22 1050 0516 0501 0331 1841 Chemistry Sodium (134 - 147 mEq/L) 138 Potassium (3.4 - 5.0 mEq/L) 5.6 H Chloride (100 - 108 mEq/L) 112 H Carbon Dioxide (21 - 33 mEq/l) 19 L Anion Gap (0 - 20) 13 BUN (7 - 18 mg/dL) 70 H Creatinine (0.6 - 1.3 mg/dL) 2.1 H Glomerular Filtr Rate (90 - 95) 35.8 L Glucose (70 - 110 mg/dL) 217 H POC Glucose (70 - 110 MG/DL) 231 H 226 H 190 H 156 H Calcium (8.0 - 10.5 mg/dL) 7.8 L Phosphorus (2.5 - 4.9 MG/DL) 5.2 H Magnesium (1.80 - 2.40 mg/dL) 2.22 Hematology WBC (4.5 - 11.0 x10 3/uL) 11.8 H RBC (4.00 - 5.60 x10 6/uL) 2.74 L Hgb (12.5 - 16.9 g/dL) 7.8 L Hct (37.5 - 50.7 %) 25.4 L MCV (81.0 - 99.0 fL) 92.7 MCH (27.0 - 33.0 pg) 28.5 MCHC (33.0 - 37.0 g/dL) 30.7 L RDW (11.5 - 14.5 %) 16.1 H Plt Count (150 - 400 x10 3/uL) 300 MPV (7.0 - 9.0 fL) 9.4 H Neut % (Auto) (56.0 - 77.0 %) 84.8 H Lymph % (Auto) (14.0 - 32.0 %) 9.6 L Boundary % (Auto) (4.8 - 9.0 %) 4.5 L Eos % (Auto) (0.3 - 3.7 %) 0.1 L Baso % (Auto) (0.0 - 2.0 %) 0.1 Neut # (Auto) (2.0 - 7.6 x10 3/uL) 10.02 H Lymph # (Auto) (1.0 - 3.8 x10 3/uL) 1.13 Boundary # (Auto) (0.1 - 0.8 x10 3/uL) 0.53 Eos # (Auto) (0.0 - 0.2 x10 3/uL) 0.01 Baso # (Auto) (0.0 - 0.2 x10 3/uL) 0.01 Abs Immat Gran (auto) (0.00 - 0.03 0.11 H x10 3/uL) Add Manual Diff NO Immature Gran % (0.0 - 2.0 %) 0.9 Nucleated RBC % (0 - 0 %) 0.0 Nucleated RBCs # (Man) (0.0 - 0.1 0.00 x10 3/uL) 05/01 1537 Chemistry POC Glucose (70 - 110 MG/DL) 118 H Diagnosis, Assessment Plan Free text A P: A/P: Patient is a 56 year old male who presents with: Past Medical History: Prostate abscess, right fo ot foot and ankle gangrene, diabetes, hypertension, hyperlipidemia Past Surgical History: TURP, right BKA Family History: Noncontributory Social History: Denies tobacco, alcohol, or drug use Allergies: NKDA Recent prostate abscess -Status post TURP with unroofing of abscess -IV antibiotics with vancomycin until 09-24-2022 Acute postoperative pain, right foot and ankle g angrene, requiring BKA -Patient is at risk for further amputations or l oss of limb due to comorbid conditions -Status post right BKA 08/28/2022 -DC Check 10/325 1 tablet p.o. every 4 hours as needed pain scale 4 10 -DC Dilaudid 0.5 mg IV daily as needed pain scale 7 10, second line therapy () -Tylenol 650 mg p.o. every 6 hours as needed ofelia n scale 1 3 -Percocet 10/325mg every 4 hours as needed, pain scale 4-10 (09/10) -Lidoderm patch to left ankle daily -IV antibiotics with vancomycin until 09-24-2022 -Local wound care -manageable Diabetic peripheral neuropathy -amitriptyline 25mg PO QHS -Gabapentin 100mg every 8 hours (09/10) -manageable Hypertension -We will monitor hypertension and tachycardia du e to pain, and hypotension as well as bradycardia secondary over sedation with narcotics -Hydralazine as needed Elevated LFTs -08/20/22-AST 51, ALT 22 -09/03/2022-AST 15, ALT 7 -Patient will require close monitoring since he is using narcotics with Tylenol Impaired functional mobility, balance, gait, and endurance -PT/OT Antalgic/Impaired gait -PT/OT -Improve strength, endurance, self-care, gait, b alance, ADLs -Fall precautions per unit protocol -Pain medications as outlined above Constipation -We will monitor while utilizing opioid narcotic medications. -Adequate fluid intake also discussed. -Colace 100 mg p.o. twice daily as needed -Dulcolax 10 mg rectally daily as needed -Senna lax 8.6mg daily -Miralax 17gm daily -manageable Disposition: percocet 10/325 mg q6h prn pain , gabapentin 100mg q8h sent to [facility]/ pharmacy #[id number] [place], [place] [address] [address] Phone: Patient has failed conservative medical therapy. Patient will require monitoring while utilize na rcotic medications for any adverse effects, and will adjust as needed Plan of care discussed with patient and nurse All diagnostics of last 24 hours been reviewed. Risks versus benefits of opioid medications were reviewed to include, but not limited to respiratory depression, accid ental overdose, altered mental status, sudden , constipation which could result in bowel obstruction, seizures, withdrawal, dependency addiction, risk for falls . Case discussed with Dr Ng whom agrees. Thank you for the consultation. [place] [facility] NURSE: -database searched, no information found Kingsley Ng 10/09/22 1320: Attestations Physician Attestation Agree w/findings plan: The patient was seen and exa mined by Ben Klein. I personally developed the care plan, which was continued by the mid-level provider. I was immediately available. at 1512 Electronically Signed by Kingsley Ng MD on 3 at 1320 RPT #:[id number] END OF REPORT 2022-09-23 14:49:00-00:00 [facility]) Endocrinology Progress Note REPORT#:[id number] REPORT STATUS: Signed DATE:09/23/22 TIME: 1449 PATIENT: KARMA ROWLAND UNIT #: [id number] ROOM/BED: [place] [address] : 63 AGE: 56 SEX: M ATTEND: Fredy Vences MD ADM AUTHOR: Braxton Chapin MD * ALL edits or amendments must be made on the el [employer]ive Sports/computer document * Subjective Patient reports: no complaints Objective General VS: Last Documented: Result Date Time Pulse Ox 98 09/23 0725 B/P 149/69 09/23 0725 B/P Mean 95.3 09/23 0725 Temp 36.3 09/23 0725 Pulse 88 09/23 0725 Resp 17 09/23 0725 O2 Delivery Room air 09/22 2310 O2 Flow Rate 2 09/08 1322 PATIENT WEIGHT: Weight (lb): 167 Weight (oz): 12.35 Weight (kg): 76.100 Medications: Active Meds + DC'd Last 24 Hrs Sodium Bicarbonate (SODIUM BICARBONATE) 650 MG B ID PO Sodium Polystyrene Sulfonate (KAYEXELATE) 30 GM Q4H PO Lactulose (LACTULOSE) 20 GM ONCE ONE PO Amlodipine Besylate (NORVASC) 10 MG DAILY PO Prednisone (predniSONE) 50 MG C BK PO Hydralazine HCl (APRESOLINE) 100 MG Q8HR PO Insulin Glargine (Semglee) 19 UNIT BEDTIME SUBQ Insulin Human Lispro (HUMALOG) 10 UNIT AC SUBQ Carvedilol (COREG) 25 MG C BK DIN PO Gabapentin (NEURONTIN) 100 MG Q8HR PO Oxycodone/Acetaminophen (PERCOCET 5/325MG TAB) 2 TAB Q4H PRN PRN PO Folic Acid (FOLIC ACID) 2 MG DAILY PO Multivitamins (TAB-A-MOHAN) 1 TAB DAILY PO Furosemide (LASIX 20MG INJ) 20 MG BLOOD-DOSE BET WEEN IV (CKD) Sodium Chloride (SODIUM CHLORIDE) 10 ML ASDIR IV Pantoprazole Sodium (PROTONIX) 40 MG Q12HR IV Polyethylene Glycol (MIRALAX) 17 GM DAILY PO Sennosides (Senna Lax 8.6 MG TABLET) 8.6 MG MADALYN Y PO Sodium Chloride (SODIUM CHLORIDE) 10 ML ASDIR NV N IV Amitriptyline HCl (ELAVIL) 25 MG BEDTIME PO Zinc Oxide (ZINC OXIDE 30 GM OINTMENT) 1 APPLIC DAILY TOPICAL Sterile Water (WATER FOR IRRIGATION) DRESSING CH GELACIO ASDIR PRN IRR Insulin Human Lispro (HUMALOG) 0 AC HS SUBQ Dextrose/Water (DEXTROSE 10% IN WATER) 125 ML DIR PRN IV (CKD) Dextrose/Water (DEXTROSE 10% IN WATER) 250 ML DIR PRN IV (CKD) Glucagon (GLUCAGON) 1 MG ASDIR PRN IM Lidocaine (LIDODERM) 1 PATCH DAILY TOPICAL Acetaminophen (TYLENOL) 650 MG Q6H PRN PRN PO Bisacodyl (DULCOLAX) 10 MG DAILY PRN PRN RECTAL Docusate Sodium (COLACE) 100 MG Q12H PRN PRN PO Hydralazine HCl (APRESOLINE) 10 MG Q6H PRN PRN I V Ondansetron HCl (ZOFRAN) 4 MG Q6H PRN PRN IV Physical Exam General appearance: alert, awake Diagnosis, Assessment Plan Hospital course to date: Laboratory Tests: 09/23 09/23 09/23 09/23 09/22 1050 0516 0501 0331 1841 Chemistry Sodium (134 - 147 mEq/L) 138 Potassium (3.4 - 5.0 mEq/L) 5.6 H Chloride (100 - 108 mEq/L) 112 H Carbon Dioxide (21 - 33 mEq/l) 19 L Anion Gap (0 - 20) 13 BUN (7 - 18 mg/dL) 70 H Creatinine (0.6 - 1.3 mg/dL) 2.1 H Glomerular Filtr Rate (90 - 95) 35.8 L Glucose (70 - 110 mg/dL) 217 H POC Glucose (70 - 110 MG/DL) 231 H 226 H 190 H 156 H Calcium (8.0 - 10.5 mg/dL) 7.8 L Phosphorus (2.5 - 4.9 MG/DL) 5.2 H Magnesium (1.80 - 2.40 mg/dL) 2.22 Hematology WBC (4.5 - 11.0 x10 3/uL) 11.8 H RBC (4.00 - 5.60 x10 6/uL) 2.74 L Hgb (12.5 - 16.9 g/dL) 7.8 L Hct (37.5 - 50.7 %) 25.4 L MCV (81.0 - 99.0 fL) 92.7 MCH (27.0 - 33.0 pg) 28.5 MCHC (33.0 - 37.0 g/dL) 30.7 L RDW (11.5 - 14.5 %) 16.1 H Plt Count (150 - 400 x10 3/uL) 300 MPV (7.0 - 9.0 fL) 9.4 H Neut % (Auto) (56.0 - 77.0 %) 84.8 H Lymph % (Auto) (14.0 - 32.0 %) 9.6 L Boundary % (Auto) (4.8 - 9.0 %) 4.5 L Eos % (Auto) (0.3 - 3.7 %) 0.1 L Baso % (Auto) (0.0 - 2.0 %) 0.1 Neut # (Auto) (2.0 - 7.6 x10 3/uL) 10.02 H Lymph # (Auto) (1.0 - 3.8 x10 3/uL) 1.13 Boundary # (Auto) (0.1 - 0.8 x10 3/uL) 0.53 Eos # (Auto) (0.0 - 0.2 x10 3/uL) 0.01 Baso # (Auto) (0.0 - 0.2 x10 3/uL) 0.01 Abs Immat Gran (auto) (0.00 - 0.03 0.11 H x10 3/uL) Add Manual Diff NO Immature Gran % (0.0 - 2.0 %) 0.9 Nucleated RBC % (0 - 0 %) 0.0 Nucleated RBCs # (Man) (0.0 - 0.1 0.00 x10 3/uL) 09/22 1537 Chemistry POC Glucose (70 - 110 MG/DL) 118 H Laboratory Tests: 09/22 09/22 09/22 09/22 1537 1057 0617 0436 Chemistry POC Glucose (70 - 110 MG/DL) 118 H 170 H 251 H B-Natriuretic Peptide (0 - 100 PG/ML) 251.0 H 09/22 09/21 0436 2047 Chemistry Sodium (134 - 147 mEq/L) 138 Potassium (3.4 - 5.0 mEq/L) 5.1 H Chloride (100 - 108 mEq/L) 111 H Carbon Dioxide (21 - 33 mEq/l) 20 L Anion Gap (0 - 20) 12 BUN (7 - 18 mg/dL) 71 H Creatinine (0.6 - 1.3 mg/dL) 1.8 H Glomerular Filtr Rate (90 - 95) 43.1 L Glucose (70 - 110 mg/dL) 244 H POC Glucose (70 - 110 MG/DL) 251 H Calcium (8.0 - 10.5 mg/dL) 7.3 L Phosphorus (2.5 - 4.9 MG/DL) 5.0 H Magnesium (1.80 - 2.40 mg/dL) 2.13 Total Creatine Kinase (46 - 171 Units/L) 27 L Albumin (3.4 - 5.0 g/dL) 1.80 L Prealbumin (16.0 - 40.0 mg/dL) 16.7 Hematology WBC (4.5 - 11.0 x10 3/uL) 12.0 H RBC (4.00 - 5.60 x10 6/uL) 2.65 L Hgb (12.5 - 16.9 g/dL) 7.7 L Hct (37.5 - 50.7 %) 24.2 L MCV (81.0 - 99.0 fL) 91.3 MCH (27.0 - 33.0 pg) 29.1 MCHC (33.0 - 37.0 g/dL) 31.8 L RDW (11.5 - 14.5 %) 16.0 H Plt Count (150 - 400 x10 3/uL) 305 MPV (7.0 - 9.0 fL) 9.5 H Neut % (Auto) (56.0 - 77.0 %) 81.7 H Lymph % (Auto) (14.0 - 32.0 %) 11.3 L Boundary % (Auto) (4.8 - 9.0 %) 5.7 Eos % (Auto) (0.3 - 3.7 %) 0.2 L Baso % (Auto) (0.0 - 2.0 %) 0.0 Neut # (Auto) (2.0 - 7.6 x10 3/uL) 9.79 H Lymph # (Auto) (1.0 - 3.8 x10 3/uL) 1.35 Boundary # (Auto) (0.1 - 0.8 x10 3/uL) 0.68 Eos # (Auto) (0.0 - 0.2 x10 3/uL) 0.02 Baso # (Auto) (0.0 - 0.2 x10 3/uL) 0.00 Abs Immat Gran (auto) (0.00 - 0.03 x10 3/uL) 0. 13 H Add Manual Diff NO Immature Gran % (0.0 - 2.0 %) 1.1 Nucleated RBC % (0 - 0 %) 0.0 Nucleated RBCs # (Man) (0.0 - 0.1 x10 3/uL) 0.0 0 Laboratory Tests: 09/21 09/21 09/21 09/21 09/21 1552 1437 1107 0530 0500 Chemistry Sodium (134 - 147 mEq/L) 137 Potassium (3.4 - 5.0 mEq/L) 4.6 Chloride (100 - 108 mEq/L) 107 Carbon Dioxide (21 - 33 mEq/l) 22 Anion Gap (0 - 20) 13 BUN (7 - 18 mg/dL) 75 H Creatinine (0.6 - 1.3 mg/dL) 1.9 H Glomerular Filtr Rate (90 - 95) 40.4 L Glucose (70 - 110 mg/dL) 148 H POC Glucose (70 - 110 MG/DL) 170 H 167 H 162 H 155 H Calcium (8.0 - 10.5 mg/dL) 7.5 L Phosphorus (2.5 - 4.9 MG/DL) 5.0 H Magnesium (1.80 - 2.40 mg/dL) 2.06 Hematology WBC (4.5 - 11.0 x10 3/uL) 13.0 H RBC (4.00 - 5.60 x10 6/uL) 2.69 L Hgb (12.5 - 16.9 g/dL) 7.6 L Hct (37.5 - 50.7 %) 23.9 L MCV (81.0 - 99.0 fL) 88.8 MCH (27.0 - 33.0 pg) 28.3 MCHC (33.0 - 37.0 g/dL) 31.8 L RDW (11.5 - 14.5 %) 15.7 H Plt Count (150 - 400 x10 3/uL) 296 MPV (7.0 - 9.0 fL) 9.8 H Neut % (Auto) (56.0 - 77.0 %) 82.2 H Lymph % (Auto) (14.0 - 32.0 %) 11.3 L Boundary % (Auto) (4.8 - 9.0 %) 5.3 Eos % (Auto) (0.3 - 3.7 %) 0.2 L Baso % (Auto) (0.0 - 2.0 %) 0.1 Neut # (Auto) (2.0 - 7.6 x10 3/uL) 10.70 H Lymph # (Auto) (1.0 - 3.8 x10 3/uL) 1.47 Boundary # (Auto) (0.1 - 0.8 x10 3/uL) 0.69 Eos # (Auto) (0.0 - 0.2 x10 3/uL) 0.03 Baso # (Auto) (0.0 - 0.2 x10 3/uL) 0.01 Abs Immat Gran (auto) (0.00 - 0.03 0.12 H x10 3/uL) Add Manual Diff NO Immature Gran % (0.0 - 2.0 %) 0.9 Nucleated RBC % (0 - 0 %) 0.0 Nucleated RBCs # (Man) (0.0 - 0.1 0.00 x10 3/uL) Laboratory Tests: 09/20 09/20 09/20 09/20 09/19 1140 0922 0505 0458 1921 Chemistry Sodium (134 - 147 mEq/L) 136 Potassium (3.4 - 5.0 mEq/L) 4.2 Chloride (100 - 108 mEq/L) 107 Carbon Dioxide (21 - 33 mEq/l) 21 Anion Gap (0 - 20) 12 BUN (7 - 18 mg/dL) 76 H Creatinine (0.6 - 1.3 mg/dL) 2.2 H Glomerular Filtr Rate (90 - 95) 33.9 L Glucose (70 - 110 mg/dL) 301 H POC Glucose (70 - 110 MG/DL) 155 H 299 H 277 H 236 H Calcium (8.0 - 10.5 mg/dL) 7.4 L Phosphorus (2.5 - 4.9 MG/DL) 5.4 H Magnesium (1.80 - 2.40 mg/dL) 2.05 Hematology WBC (4.5 - 11.0 x10 3/uL) 12.3 H RBC (4.00 - 5.60 x10 6/uL) 2.66 L Hgb (12.5 - 16.9 g/dL) 7.6 L Hct (37.5 - 50.7 %) 23.9 L MCV (81.0 - 99.0 fL) 89.8 MCH (27.0 - 33.0 pg) 28.6 MCHC (33.0 - 37.0 g/dL) 31.8 L RDW (11.5 - 14.5 %) 15.3 H Plt Count (150 - 400 x10 3/uL) 302 MPV (7.0 - 9.0 fL) 9.2 H Neut % (Auto) (56.0 - 77.0 %) 79.7 H Lymph % (Auto) (14.0 - 32.0 %) 13.0 L Boundary % (Auto) (4.8 - 9.0 %) 6.2 Eos % (Auto) (0.3 - 3.7 %) 0.2 L Baso % (Auto) (0.0 - 2.0 %) 0.1 Neut # (Auto) (2.0 - 7.6 x10 3/uL) 9.84 H Lymph # (Auto) (1.0 - 3.8 x10 3/uL) 1.60 Boundary # (Auto) (0.1 - 0.8 x10 3/uL) 0.76 Eos # (Auto) (0.0 - 0.2 x10 3/uL) 0.03 Baso # (Auto) (0.0 - 0.2 x10 3/uL) 0.01 Abs Immat Gran (auto) (0.00 - 0.03 0.10 H x10 3/uL) Add Manual Diff NO Immature Gran % (0.0 - 2.0 %) 0.8 Nucleated RBC % (0 - 0 %) 0.0 Nucleated RBCs # (Man) (0.0 - 0.1 0.00 x10 3/uL) Laboratory Tests: 09/19 09/19 09/19 09/18 09/18 1133 0501 0448 2151 1933 Chemistry Sodium (134 - 147 mEq/L) 139 Potassium (3.4 - 5.0 mEq/L) 3.8 Chloride (100 - 108 mEq/L) 108 Carbon Dioxide (21 - 33 mEq/l) 22 Anion Gap (0 - 20) 13 BUN (7 - 18 mg/dL) 72 H Creatinine (0.6 - 1.3 mg/dL) 2.3 H Glomerular Filtr Rate (90 - 95) 32.1 L Glucose (70 - 110 mg/dL) 61 L POC Glucose (70 - 110 MG/DL) 96 162 H 103 70 Calcium (8.0 - 10.5 mg/dL) 7.5 L Phosphorus (2.5 - 4.9 MG/DL) 5.0 H Magnesium (1.80 - 2.40 mg/dL) 1.69 L Hematology WBC (4.5 - 11.0 x10 3/uL) 13.3 H RBC (4.00 - 5.60 x10 6/uL) 2.79 L Hgb (12.5 - 16.9 g/dL) 8.0 L Hct (37.5 - 50.7 %) 25.0 L MCV (81.0 - 99.0 fL) 89.6 MCH (27.0 - 33.0 pg) 28.7 MCHC (33.0 - 37.0 g/dL) 32.0 L RDW (11.5 - 14.5 %) 14.9 H Plt Count (150 - 400 x10 3/uL) 347 MPV (7.0 - 9.0 fL) 9.1 H Neut % (Auto) (56.0 - 77.0 %) 71.4 Lymph % (Auto) (14.0 - 32.0 %) 16.5 Boundary % (Auto) (4.8 - 9.0 %) 8.4 Eos % (Auto) (0.3 - 3.7 %) 2.4 Baso % (Auto) (0.0 - 2.0 %) 0.2 Neut # (Auto) (2.0 - 7.6 x10 3/uL) 9.50 H Lymph # (Auto) (1.0 - 3.8 x10 3/uL) 2.19 Boundary # (Auto) (0.1 - 0.8 x10 3/uL) 1.11 H Eos # (Auto) (0.0 - 0.2 x10 3/uL) 0.32 H Baso # (Auto) (0.0 - 0.2 x10 3/uL) 0.02 Abs Immat Gran (auto) (0.00 - 0.03 0.14 H x10 3/uL) Add Manual Diff NO Immature Gran % (0.0 - 2.0 %) 1.1 Nucleated RBC % (0 - 0 %) 0.0 Nucleated RBCs # (Man) (0.0 - 0.1 0.00 x10 3/uL) 09/18 1611 Chemistry POC Glucose (70 - 110 MG/DL) 118 H Laboratory Tests: 09/18 09/18 09/18 09/18 1611 1102 0906 0540 Chemistry POC Glucose (70 - 110 MG/DL) 118 H 80 171 H 203 H 09/18 09/17 0505 1904 Chemistry Sodium (134 - 147 mEq/L) 138 Potassium (3.4 - 5.0 mEq/L) 4.1 Chloride (100 - 108 mEq/L) 108 Carbon Dioxide (21 - 33 mEq/l) 21 Anion Gap (0 - 20) 13 BUN (7 - 18 mg/dL) 66 H Creatinine (0.6 - 1.3 mg/dL) 2.2 H Glomerular Filtr Rate (90 - 95) 33.9 L Glucose (70 - 110 mg/dL) 201 H POC Glucose (70 - 110 MG/DL) 160 H Calcium (8.0 - 10.5 mg/dL) 7.5 L Phosphorus (2.5 - 4.9 MG/DL) 4.4 Magnesium (1.80 - 2.40 mg/dL) 1.83 Hematology WBC (4.5 - 11.0 x10 3/uL) 10.6 RBC (4.00 - 5.60 x10 6/uL) 2.67 L Hgb (12.5 - 16.9 g/dL) 7.6 L Hct (37.5 - 50.7 %) 23.7 L MCV (81.0 - 99.0 fL) 88.8 MCH (27.0 - 33.0 pg) 28.5 MCHC (33.0 - 37.0 g/dL) 32.1 L RDW (11.5 - 14.5 %) 14.8 H Plt Count (150 - 400 x10 3/uL) 341 MPV (7.0 - 9.0 fL) 9.2 H Neut % (Auto) (56.0 - 77.0 %) 74.6 Lymph % (Auto) (14.0 - 32.0 %) 17.4 Boundary % (Auto) (4.8 - 9.0 %) 6.9 Eos % (Auto) (0.3 - 3.7 %) 0.1 L Baso % (Auto) (0.0 - 2.0 %) 0.1 Neut # (Auto) (2.0 - 7.6 x10 3/uL) 7.91 H Lymph # (Auto) (1.0 - 3.8 x10 3/uL) 1.85 Boundary # (Auto) (0.1 - 0.8 x10 3/uL) 0.73 Eos # (Auto) (0.0 - 0.2 x10 3/uL) 0.01 Baso # (Auto) (0.0 - 0.2 x10 3/uL) 0.01 Abs Immat Gran (auto) (0.00 - 0.03 x10 3/uL) 0. 10 H Add Manual Diff NO Immature Gran % (0.0 - 2.0 %) 0.9 Nucleated RBC % (0 - 0 %) 0.0 Nucleated RBCs # (Man) (0.0 - 0.1 x10 3/uL) 0.0 0 Laboratory Tests: 09/17 09/17 09/17 09/17 09/17 1554 1027 0951 0601 0451 Chemistry POC Glucose (70 - 110 MG/DL) 75 256 H 287 H 286 H 273 H 09/17 09/16 09/16 0450 2345 1931 Chemistry Sodium (134 - 147 mEq/L) 136 Potassium (3.4 - 5.0 mEq/L) 4.5 Chloride (100 - 108 mEq/L) 107 Carbon Dioxide (21 - 33 mEq/l) 21 Anion Gap (0 - 20) 12 BUN (7 - 18 mg/dL) 66 H Creatinine (0.6 - 1.3 mg/dL) 2.4 H Glomerular Filtr Rate (90 - 95) 30.5 L Glucose (70 - 110 mg/dL) 285 H POC Glucose (70 - 110 MG/DL) 291 H 219 H Calcium (8.0 - 10.5 mg/dL) 7.4 L Phosphorus (2.5 - 4.9 MG/DL) 4.5 Magnesium (1.80 - 2.40 mg/dL) 1.97 Hematology WBC (4.5 - 11.0 x10 3/uL) 8.9 RBC (4.00 - 5.60 x10 6/uL) 2.83 L Hgb (12.5 - 16.9 g/dL) 8.1 L Hct (37.5 - 50.7 %) 24.9 L MCV (81.0 - 99.0 fL) 88.0 MCH (27.0 - 33.0 pg) 28.6 MCHC (33.0 - 37.0 g/dL) 32.5 L RDW (11.5 - 14.5 %) 14.6 H Plt Count (150 - 400 x10 3/uL) 374 MPV (7.0 - 9.0 fL) 9.6 H Neut % (Auto) (56.0 - 77.0 %) 85.2 H Lymph % (Auto) (14.0 - 32.0 %) 10.2 L Boundary % (Auto) (4.8 - 9.0 %) 2.9 L Eos % (Auto) (0.3 - 3.7 %) 0.0 L Baso % (Auto) (0.0 - 2.0 %) 0.1 Neut # (Auto) (2.0 - 7.6 x10 3/uL) 7.58 Lymph # (Auto) (1.0 - 3.8 x10 3/uL) 0.91 L Boundary # (Auto) (0.1 - 0.8 x10 3/uL) 0.26 Eos # (Auto) (0.0 - 0.2 x10 3/uL) 0.00 Baso # (Auto) (0.0 - 0.2 x10 3/uL) 0.01 Abs Immat Gran (auto) (0.00 - 0.03 x10 3/uL) 0. 14 H Add Manual Diff NO Immature Gran % (0.0 - 2.0 %) 1.6 Nucleated RBC % (0 - 0 %) 0.0 Nucleated RBCs # (Man) (0.0 - 0.1 x10 3/uL) 0.0 0 Laboratory Tests: 09/16 09/16 09/16 09/16 1549 1441 1110 0553 Chemistry POC Glucose (70 - 110 MG/DL) 62 L 60 L 148 H 19 5 H 09/16 09/15 0455 1937 Chemistry Sodium (134 - 147 mEq/L) 135 Potassium (3.4 - 5.0 mEq/L) 4.5 Chloride (100 - 108 mEq/L) 108 Carbon Dioxide (21 - 33 mEq/l) 20 L Anion Gap (0 - 20) 11 BUN (7 - 18 mg/dL) 60 H Creatinine (0.6 - 1.3 mg/dL) 2.7 H Glomerular Filtr Rate (90 - 95) 26.5 L Glucose (70 - 110 mg/dL) 175 H POC Glucose (70 - 110 MG/DL) 124 H Calcium (8.0 - 10.5 mg/dL) 7.5 L Phosphorus (2.5 - 4.9 MG/DL) 4.6 Magnesium (1.80 - 2.40 mg/dL) 1.93 Hematology WBC (4.5 - 11.0 x10 3/uL) 9.5 RBC (4.00 - 5.60 x10 6/uL) 2.70 L Hgb (12.5 - 16.9 g/dL) 7.6 L Hct (37.5 - 50.7 %) 23.7 L MCV (81.0 - 99.0 fL) 87.8 MCH (27.0 - 33.0 pg) 28.1 MCHC (33.0 - 37.0 g/dL) 32.1 L RDW (11.5 - 14.5 %) 14.6 H Plt Count (150 - 400 x10 3/uL) 360 MPV (7.0 - 9.0 fL) 9.6 H Neut % (Auto) (56.0 - 77.0 %) 73.4 Lymph % (Auto) (14.0 - 32.0 %) 18.6 Boundary % (Auto) (4.8 - 9.0 %) 6.7 Eos % (Auto) (0.3 - 3.7 %) 0.2 L Baso % (Auto) (0.0 - 2.0 %) 0.1 Neut # (Auto) (2.0 - 7.6 x10 3/uL) 6.99 Lymph # (Auto) (1.0 - 3.8 x10 3/uL) 1.77 Boundary # (Auto) (0.1 - 0.8 x10 3/uL) 0.64 Eos # (Auto) (0.0 - 0.2 x10 3/uL) 0.02 Baso # (Auto) (0.0 - 0.2 x10 3/uL) 0.01 Abs Immat Gran (auto) (0.00 - 0.03 x10 3/uL) 0. 10 H Add Manual Diff NO Immature Gran % (0.0 - 2.0 %) 1.0 Nucleated RBC % (0 - 0 %) 0.0 Nucleated RBCs # (Man) (0.0 - 0.1 x10 3/uL) 0.0 0 Laboratory Tests: 09/15 09/15 09/15 09/15 1640 1304 1154 0519 Chemistry POC Glucose (70 - 110 MG/DL) 137 H 126 H 309 H Urines Urine Color (YEL/STRAW) YELLOW Urine Appearance (CLEAR) SL CLOUDY Urine pH (5.0 - 7.0) 5.0 Ur Specific [place] (1.005 - 1.030) 1.013 Urine Protein (NEGATIVE) 2+ H Urine Glucose (UA) (NEGATIVE) 2+ H Urine Ketones (NEGATIVE) NEGATIVE Urine Blood (NEGATIVE) 2+ H Urine Nitrite (NEGATIVE) NEGATIVE Urine Bilirubin (NEGATIVE) NEGATIVE Urine Urobilinogen (0.2 - 1.0 mg/dL) 0.2 Ur Leukocyte Esterase (NEGATIVE) TRACE H Urine RBC (0 - 3 RBC/HPF) 21-50 Urine WBC (0 - 3 WBC/HPF) 4-9 H Ur Squamous Epith Cells (NONE SEEN /HPF) 0-5 Ur Transition Epith Cell (NONE SEEN /HPF) TRACE Urine Bacteria (NONE SEEN /HPF) TRACE Granular Casts (NONE /LPF) 3-5 Urine Mucus (NONE SEEN /LPF) TRACE Ur Random Creatinine (mg/dL) 52.5 U Random Total Protein (mg/dL) 283 09/15 09/14 0515 1931 Chemistry Sodium (134 - 147 mEq/L) 132 L Potassium (3.4 - 5.0 mEq/L) 4.7 Chloride (100 - 108 mEq/L) 105 Carbon Dioxide (21 - 33 mEq/l) 17 L Anion Gap (0 - 20) 15 BUN (7 - 18 mg/dL) 38 H Creatinine (0.6 - 1.3 mg/dL) 2.9 H Glomerular Filtr Rate (90 - 95) 24.3 L Glucose (70 - 110 mg/dL) 312 H POC Glucose (70 - 110 MG/DL) 193 H Calcium (8.0 - 10.5 mg/dL) 7.2 L Phosphorus (2.5 - 4.9 MG/DL) 5.7 H Magnesium (1.80 - 2.40 mg/dL) 1.96 Total Creatine Kinase (46 - 171 Units/L) 26 L Albumin (3.4 - 5.0 g/dL) 1.50 L Prealbumin (16.0 - 40.0 mg/dL) 8.0 L Hematology WBC (4.5 - 11.0 x10 3/uL) 8.7 RBC (4.00 - 5.60 x10 6/uL) 2.88 L Hgb (12.5 - 16.9 g/dL) 8.2 L Hct (37.5 - 50.7 %) 26.5 L MCV (81.0 - 99.0 fL) 92.0 MCH (27.0 - 33.0 pg) 28.5 MCHC (33.0 - 37.0 g/dL) 30.9 L RDW (11.5 - 14.5 %) 14.3 Plt Count (150 - 400 x10 3/uL) 341 MPV (7.0 - 9.0 fL) 9.1 H Neut % (Auto) (56.0 - 77.0 %) 84.9 H Lymph % (Auto) (14.0 - 32.0 %) 11.3 L Boundary % (Auto) (4.8 - 9.0 %) 3.2 L Eos % (Auto) (0.3 - 3.7 %) 0.0 L Baso % (Auto) (0.0 - 2.0 %) 0.1 Neut # (Auto) (2.0 - 7.6 x10 3/uL) 7.35 Lymph # (Auto) (1.0 - 3.8 x10 3/uL) 0.98 L Boundary # (Auto) (0.1 - 0.8 x10 3/uL) 0.28 Eos # (Auto) (0.0 - 0.2 x10 3/uL) 0.00 Baso # (Auto) (0.0 - 0.2 x10 3/uL) 0.01 Abs Immat Gran (auto) (0.00 - 0.03 x10 3/uL) 0. 04 H Add Manual Diff NO Immature Gran % (0.0 - 2.0 %) 0.5 Nucleated RBC % (0 - 0 %) 0.0 Nucleated RBCs # (Man) (0.0 - 0.1 x10 3/uL) 0.0 0 Microbiology: Date/Time Procedure - Status Source Growth 09/15 514 MRSA DNA Surveillance Screen - COMP NASAL Laboratory Tests: 09/14 09/14 09/14 09/14 09/13 1130 0736 4379 1833 1677 Chemistry Sodium (134 - 147 mEq/L) 132 L Potassium (3.4 - 5.0 mEq/L) 4.4 Chloride (100 - 108 mEq/L) 104 Carbon Dioxide (21 - 33 mEq/l) 19 L Anion Gap (0 - 20) 14 BUN (7 - 18 mg/dL) 38 H Creatinine (0.6 - 1.3 mg/dL) 2.8 H Glomerular Filtr Rate (90 - 95) 25.4 L Glucose (70 - 110 mg/dL) 325 H POC Glucose (70 - 110 MG/DL) 137 H 290 H 334 H 248 H Calcium (8.0 - 10.5 mg/dL) 7.5 L Hematology WBC (4.5 - 11.0 x10 3/uL) 9.5 RBC (4.00 - 5.60 x10 6/uL) 2.83 L Hgb (12.5 - 16.9 g/dL) 8.0 L Hct (37.5 - 50.7 %) 25.3 L MCV (81.0 - 99.0 fL) 89.4 MCH (27.0 - 33.0 pg) 28.3 MCHC (33.0 - 37.0 g/dL) 31.6 L RDW (11.5 - 14.5 %) 14.0 Plt Count (150 - 400 x10 3/uL) 322 MPV (7.0 - 9.0 fL) 9.3 H Neut % (Auto) (56.0 - 77.0 %) 80.2 H Lymph % (Auto) (14.0 - 32.0 %) 13.9 L Boundary % (Auto) (4.8 - 9.0 %) 5.1 Eos % (Auto) (0.3 - 3.7 %) 0.0 L Baso % (Auto) (0.0 - 2.0 %) 0.1 Neut # (Auto) (2.0 - 7.6 x10 3/uL) 7.58 Lymph # (Auto) (1.0 - 3.8 x10 3/uL) 1.31 Boundary # (Auto) (0.1 - 0.8 x10 3/uL) 0.48 Eos # (Auto) (0.0 - 0.2 x10 3/uL) 0.00 Baso # (Auto) (0.0 - 0.2 x10 3/uL) 0.01 Abs Immat Gran (auto) (0.00 - 0.03 0.07 H x10 3/uL) Add Manual Diff NO Immature Gran % (0.0 - 2.0 %) 0.7 Nucleated RBC % (0 - 0 %) 0.0 Nucleated RBCs # (Man) (0.0 - 0.1 0.00 x10 3/uL) 09/13 1629 Chemistry POC Glucose (70 - 110 MG/DL) 130 H Laboratory Tests: 09/13 09/13 09/13 09/12 1105 0543 0455 2016 Chemistry Sodium (134 - 147 mEq/L) 133 L Potassium (3.4 - 5.0 mEq/L) 4.6 Chloride (100 - 108 mEq/L) 107 Carbon Dioxide (21 - 33 mEq/l) 19 L Anion Gap (0 - 20) 12 BUN (7 - 18 mg/dL) 28 H Creatinine (0.6 - 1.3 mg/dL) 2.7 H Glomerular Filtr Rate (90 - 95) 26.5 L Glucose (70 - 110 mg/dL) 241 H POC Glucose (70 - 110 MG/DL) 307 H 258 H 223 H Calcium (8.0 - 10.5 mg/dL) 7.8 L Phosphorus (2.5 - 4.9 MG/DL) 4.7 Magnesium (1.80 - 2.40 mg/dL) 1.92 Hematology WBC (4.5 - 11.0 x10 3/uL) 9.8 RBC (4.00 - 5.60 x10 6/uL) 2.90 L Hgb (12.5 - 16.9 g/dL) 8.2 L Hct (37.5 - 50.7 %) 25.4 L MCV (81.0 - 99.0 fL) 87.6 MCH (27.0 - 33.0 pg) 28.3 MCHC (33.0 - 37.0 g/dL) 32.3 L RDW (11.5 - 14.5 %) 13.7 Plt Count (150 - 400 x10 3/uL) 288 MPV (7.0 - 9.0 fL) 10.0 H Neut % (Auto) (56.0 - 77.0 %) 85.3 H Lymph % (Auto) (14.0 - 32.0 %) 10.4 L Boundary % (Auto) (4.8 - 9.0 %) 3.5 L Eos % (Auto) (0.3 - 3.7 %) 0.0 L Baso % (Auto) (0.0 - 2.0 %) 0.1 Neut # (Auto) (2.0 - 7.6 x10 3/uL) 8.34 H Lymph # (Auto) (1.0 - 3.8 x10 3/uL) 1.02 Boundary # (Auto) (0.1 - 0.8 x10 3/uL) 0.34 Eos # (Auto) (0.0 - 0.2 x10 3/uL) 0.00 Baso # (Auto) (0.0 - 0.2 x10 3/uL) 0.01 Abs Immat Gran (auto) (0.00 - 0.03 x10 3/uL) 0. 07 H Add Manual Diff NO Immature Gran % (0.0 - 2.0 %) 0.7 Nucleated RBC % (0 - 0 %) 0.0 Nucleated RBCs # (Man) (0.0 - 0.1 x10 3/uL) 0.0 0 Microbiology: Date/Time Procedure - Status Source Growth 09/13 0455 MRSA DNA Surveillance Screen - RECD NASAL Laboratory Tests: 09/12 09/12 09/12 09/12 1606 1115 1105 0604 Chemistry POC Glucose (70 - 110 MG/DL) 150 H 68 L 170 H B-Natriuretic Peptide (0 - 100 PG/ML) 297.0 H Hematology Eos Smear Total Cells NONE SEEN 09/12 09/11 09/11 0420 2130 1933 Chemistry Sodium (134 - 147 mEq/L) 134 Potassium (3.4 - 5.0 mEq/L) 4.2 Chloride (100 - 108 mEq/L) 106 Carbon Dioxide (21 - 33 mEq/l) 20 L Anion Gap (0 - 20) 12 BUN (7 - 18 mg/dL) 31 H Creatinine (0.6 - 1.3 mg/dL) 2.4 H Glomerular Filtr Rate (90 - 95) 30.5 L Glucose (70 - 110 mg/dL) 167 H POC Glucose (70 - 110 MG/DL) 150 H Calcium (8.0 - 10.5 mg/dL) 8.2 Phosphorus (2.5 - 4.9 MG/DL) 4.4 Magnesium (1.80 - 2.40 mg/dL) 1.86 Hematology WBC (4.5 - 11.0 x10 3/uL) 8.8 RBC (4.00 - 5.60 x10 6/uL) 2.73 L Hgb (12.5 - 16.9 g/dL) 7.7 L Hct (37.5 - 50.7 %) 23.7 L MCV (81.0 - 99.0 fL) 86.8 MCH (27.0 - 33.0 pg) 28.2 MCHC (33.0 - 37.0 g/dL) 32.5 L RDW (11.5 - 14.5 %) 13.8 Plt Count (150 - 400 x10 3/uL) 248 MPV (7.0 - 9.0 fL) 9.7 H Neut % (Auto) (56.0 - 77.0 %) 72.3 Lymph % (Auto) (14.0 - 32.0 %) 15.0 Boundary % (Auto) (4.8 - 9.0 %) 7.9 Eos % (Auto) (0.3 - 3.7 %) 3.8 H Baso % (Auto) (0.0 - 2.0 %) 0.3 Neut # (Auto) (2.0 - 7.6 x10 3/uL) 6.34 Lymph # (Auto) (1.0 - 3.8 x10 3/uL) 1.31 Boundary # (Auto) (0.1 - 0.8 x10 3/uL) 0.69 Eos # (Auto) (0.0 - 0.2 x10 3/uL) 0.33 H Baso # (Auto) (0.0 - 0.2 x10 3/uL) 0.03 Abs Immat Gran (auto) (0.00 - 0.03 x10 3/uL) 0. 06 H Add Manual Diff NO Immature Gran % (0.0 - 2.0 %) 0.7 Nucleated RBC % (0 - 0 %) 0.0 Nucleated RBCs # (Man) (0.0 - 0.1 x10 3/uL) 0.0 0 Toxicology Random Vancomycin (mcg/mL) 16.7 Laboratory Tests: 09/11 09/11 09/11 09/11 09/11 1532 1445 1114 0541 0445 Chemistry Sodium (134 - 147 mEq/L) 134 Potassium (3.4 - 5.0 mEq/L) 4.3 Chloride (100 - 108 mEq/L) 105 Carbon Dioxide (21 - 33 mEq/l) 22 Anion Gap (0 - 20) 12 BUN (7 - 18 mg/dL) 26 H Creatinine (0.6 - 1.3 mg/dL) 2.0 H Glomerular Filtr Rate (90 - 95) 38.0 L Glucose (70 - 110 mg/dL) 109 POC Glucose (70 - 110 MG/DL) 93 109 127 H Calcium (8.0 - 10.5 mg/dL) 8.3 Phosphorus (2.5 - 4.9 MG/DL) 4.7 Magnesium (1.80 - 2.40 mg/dL) 1.90 Hematology WBC (4.5 - 11.0 x10 3/uL) 7.9 RBC (4.00 - 5.60 x10 6/uL) 2.94 L Hgb (12.5 - 16.9 g/dL) 8.3 L Hct (37.5 - 50.7 %) 25.8 L MCV (81.0 - 99.0 fL) 87.8 MCH (27.0 - 33.0 pg) 28.2 MCHC (33.0 - 37.0 g/dL) 32.2 L RDW (11.5 - 14.5 %) 13.7 Plt Count (150 - 400 x10 3/uL) 269 MPV (7.0 - 9.0 fL) 9.8 H Neut % (Auto) (56.0 - 77.0 %) 67.9 Lymph % (Auto) (14.0 - 32.0 %) 16.1 Boundary % (Auto) (4.8 - 9.0 %) 9.1 H Eos % (Auto) (0.3 - 3.7 %) 5.6 H Baso % (Auto) (0.0 - 2.0 %) 0.5 Neut # (Auto) (2.0 - 7.6 x10 3/uL) 5.35 Lymph # (Auto) (1.0 - 3.8 x10 3/uL) 1.27 Boundary # (Auto) (0.1 - 0.8 x10 3/uL) 0.72 Eos # (Auto) (0.0 - 0.2 x10 3/uL) 0.44 H Baso # (Auto) (0.0 - 0.2 x10 3/uL) 0.04 Abs Immat Gran (auto) (0.00 - 0.03 0.06 H x10 3/uL) Add Manual Diff NO Immature Gran % (0.0 - 2.0 %) 0.8 Nucleated RBC % (0 - 0 %) 0.0 Nucleated RBCs # (Man) (0.0 - 0.1 0.00 x10 3/uL) Toxicology Random Vancomycin (mcg/mL) 18.3 09/10 1851 Chemistry POC Glucose (70 - 110 MG/DL) 97 Laboratory Tests: 09/10 09/10 09/10 09/10 09/10 1715 1625 1430 1007 0545 Chemistry Sodium (134 - 147 mEq/L) 135 Potassium (3.4 - 5.0 mEq/L) 4.2 Chloride (100 - 108 mEq/L) 107 Carbon Dioxide (21 - 33 mEq/l) 21 Anion Gap (0 - 20) 11 BUN (7 - 18 mg/dL) 25 H Creatinine (0.6 - 1.3 mg/dL) 1.9 H Glomerular Filtr Rate (90 - 95) 40.4 L Glucose (70 - 110 mg/dL) 156 H POC Glucose (70 - 110 MG/DL) 75 58 L 213 H Calcium (8.0 - 10.5 mg/dL) 8.3 Phosphorus (2.5 - 4.9 MG/DL) 4.6 Magnesium (1.80 - 2.40 mg/dL) 1.89 Hematology WBC (4.5 - 11.0 x10 3/uL) 8.6 RBC (4.00 - 5.60 x10 6/uL) 3.08 L Hgb (12.5 - 16.9 g/dL) 8.6 L Hct (37.5 - 50.7 %) 26.7 L MCV (81.0 - 99.0 fL) 86.7 MCH (27.0 - 33.0 pg) 27.9 MCHC (33.0 - 37.0 g/dL) 32.2 L RDW (11.5 - 14.5 %) 13.8 Plt Count (150 - 400 x10 3/uL) 265 MPV (7.0 - 9.0 fL) 9.6 H Neut % (Auto) (56.0 - 77.0 %) 69.4 Lymph % (Auto) (14.0 - 32.0 %) 15.5 Boundary % (Auto) (4.8 - 9.0 %) 8.5 Eos % (Auto) (0.3 - 3.7 %) 5.5 H Baso % (Auto) (0.0 - 2.0 %) 0.4 Neut # (Auto) (2.0 - 7.6 x10 3/uL) 5.94 Lymph # (Auto) (1.0 - 3.8 x10 3/uL) 1.33 Boundary # (Auto) (0.1 - 0.8 x10 3/uL) 0.73 Eos # (Auto) (0.0 - 0.2 x10 3/uL) 0.47 H Baso # (Auto) (0.0 - 0.2 x10 3/uL) 0.03 Abs Immat Gran (auto) (0.00 - 0.03 0.06 H x10 3/uL) Add Manual Diff NO Immature Gran % (0.0 - 2.0 %) 0.7 Nucleated RBC % (0 - 0 %) 0.0 Nucleated RBCs # (Man) (0.0 - 0.1 0.00 x10 3/uL) Toxicology Random Vancomycin (mcg/mL) 15.7 09/10 09/09 0541 1911 Chemistry POC Glucose (70 - 110 MG/DL) 154 H 102 Recent Impressions: ULTRASOUND - US RETROPERITONEAL COM 09/10 1311 Report Impression - Status: SIGNED Entered: 09/10/2022 1503 IMPRESSION: No acute findings. Impression By: Hakeem Jacobo Laboratory Tests: 09/09 09/09 09/09 09/09 09/09 1606 1526 1403 1049 0524 Chemistry POC Glucose (70 - 110 MG/DL) 109 30 L 90 128 H Toxicology Random Vancomycin (mcg/mL) 15.4 09/09 09/08 09/08 0500 1955 1828 Chemistry Sodium (134 - 147 mEq/L) 136 Potassium (3.4 - 5.0 mEq/L) 4.2 Chloride (100 - 108 mEq/L) 107 Carbon Dioxide (21 - 33 mEq/l) 22 Anion Gap (0 - 20) 11 BUN (7 - 18 mg/dL) 23 H Creatinine (0.6 - 1.3 mg/dL) 1.5 H Glomerular Filtr Rate (90 - 95) 53.6 L Glucose (70 - 110 mg/dL) 125 H POC Glucose (70 - 110 MG/DL) 106 Calcium (8.0 - 10.5 mg/dL) 8.2 Phosphorus (2.5 - 4.9 MG/DL) 4.0 Magnesium (1.80 - 2.40 mg/dL) 1.89 Iron (35 - 150 mcg/dL) 10 L TIBC (260 - 445 mcg/dL) 138 L % Saturation (14 - 34 %) 7.2 L Unsat Iron Binding (mcg/dL) 128 Ferritin (23.9 - 336.2 ng/mL) 700.5 H Lactate Dehydrogenase (87 - 241 IUnits/L) 193 Hematology WBC (4.5 - 11.0 x10 3/uL) 9.2 RBC (4.00 - 5.60 x10 6/uL) 3.01 L Hgb (12.5 - 16.9 g/dL) 8.5 L Hct (37.5 - 50.7 %) 25.9 L MCV (81.0 - 99.0 fL) 86.0 MCH (27.0 - 33.0 pg) 28.2 MCHC (33.0 - 37.0 g/dL) 32.8 L RDW (11.5 - 14.5 %) 13.8 Plt Count (150 - 400 x10 3/uL) 263 MPV (7.0 - 9.0 fL) 9.7 H Neut % (Auto) (56.0 - 77.0 %) 69.1 Lymph % (Auto) (14.0 - 32.0 %) 16.1 Boundary % (Auto) (4.8 - 9.0 %) 9.2 H Eos % (Auto) (0.3 - 3.7 %) 4.7 H Baso % (Auto) (0.0 - 2.0 %) 0.4 Neut # (Auto) (2.0 - 7.6 x10 3/uL) 6.38 Lymph # (Auto) (1.0 - 3.8 x10 3/uL) 1.49 Boundary # (Auto) (0.1 - 0.8 x10 3/uL) 0.85 H Eos # (Auto) (0.0 - 0.2 x10 3/uL) 0.43 H Baso # (Auto) (0.0 - 0.2 x10 3/uL) 0.04 Abs Immat Gran (auto) (0.00 - 0.03 x10 3/uL) 0. 05 H Add Manual Diff NO Immature Gran % (0.0 - 2.0 %) 0.5 Nucleated RBC % (0 - 0 %) 0.0 Nucleated RBCs # (Man) (0.0 - 0.1 x10 3/uL) 0.0 0 Retic Count (auto) (0.3 - 2.3 %) 1.3 Laboratory Tests: 09/08 09/08 09/08 09/08 09/08 1611 1318 1045 1033 0616 Chemistry POC Glucose (70 - 110 MG/DL) 120 H 101 99 101 Toxicology Random Vancomycin (mcg/mL) 15.8 09/08 09/07 09/07 0615 2238 2110 Chemistry Sodium (134 - 147 mEq/L) 135 Potassium (3.4 - 5.0 mEq/L) 4.6 Chloride (100 - 108 mEq/L) 107 Carbon Dioxide (21 - 33 mEq/l) 22 Anion Gap (0 - 20) 10 BUN (7 - 18 mg/dL) 22 H Creatinine (0.6 - 1.3 mg/dL) 1.4 H Glomerular Filtr Rate (90 - 95) 58.3 L Glucose (70 - 110 mg/dL) 100 POC Glucose (70 - 110 MG/DL) 135 H 127 H Calcium (8.0 - 10.5 mg/dL) 8.1 Magnesium (1.80 - 2.40 mg/dL) 1.58 L Total Creatine Kinase (46 - 171 Units/L) 22 L Albumin (3.4 - 5.0 g/dL) 1.30 L Prealbumin (16.0 - 40.0 mg/dL) < 5.0 L Hematology WBC (4.5 - 11.0 x10 3/uL) 9.1 RBC (4.00 - 5.60 x10 6/uL) 3.05 L Hgb (12.5 - 16.9 g/dL) 8.5 L Hct (37.5 - 50.7 %) 26.2 L MCV (81.0 - 99.0 fL) 85.9 MCH (27.0 - 33.0 pg) 27.9 MCHC (33.0 - 37.0 g/dL) 32.4 L RDW (11.5 - 14.5 %) 13.5 Plt Count (150 - 400 x10 3/uL) 231 MPV (7.0 - 9.0 fL) 9.6 H Neut % (Auto) (56.0 - 77.0 %) 73.3 Lymph % (Auto) (14.0 - 32.0 %) 13.7 L Boundary % (Auto) (4.8 - 9.0 %) 7.2 Eos % (Auto) (0.3 - 3.7 %) 4.8 H Baso % (Auto) (0.0 - 2.0 %) 0.3 Neut # (Auto) (2.0 - 7.6 x10 3/uL) 6.64 Lymph # (Auto) (1.0 - 3.8 x10 3/uL) 1.24 Boundary # (Auto) (0.1 - 0.8 x10 3/uL) 0.65 Eos # (Auto) (0.0 - 0.2 x10 3/uL) 0.43 H Baso # (Auto) (0.0 - 0.2 x10 3/uL) 0.03 Abs Immat Gran (auto) (0.00 - 0.03 x10 3/uL) 0. 06 H Add Manual Diff NO Immature Gran % (0.0 - 2.0 %) 0.7 Nucleated RBC % (0 - 0 %) 0.0 Nucleated RBCs # (Man) (0.0 - 0.1 x10 3/uL) 0.0 0 Laboratory Tests: 09/07 09/07 09/07 09/07 09/07 1554 1137 1127 0618 0510 Chemistry Creatinine (0.6 - 1.3 mg/dL) 1.4 H POC Glucose (70 - 110 MG/DL) 112 H 51 L 42 L 13 5 H Hematology Hgb (12.5 - 16.9 g/dL) 8.4 L Hct (37.5 - 50.7 %) 26.2 L Toxicology Random Vancomycin (mcg/mL) 14.7 09/066 2108 Chemistry POC Glucose (70 - 110 MG/DL) 192 H 211 H Laboratory Tests: 09/06 09/06 09/06 09/06 09/06 1553 1547 1051 0538 0536 Chemistry Creatinine (0.6 - 1.3 mg/dL) 1.4 H POC Glucose (70 - 110 MG/DL) 119 H 92 124 H Hematology Hgb (12.5 - 16.9 g/dL) 8.6 L Hct (37.5 - 50.7 %) 26.1 L Toxicology Vancomycin Trough (10.0 - 20.0 mcg/mL) 18.9 09/05 1910 Chemistry POC Glucose (70 - 110 MG/DL) 117 H Laboratory Tests: 09/05 09/05 09/04 09/04 09/04 1149 0615 2042 1630 1557 Chemistry Sodium (134 - 147 mEq/L) 134 Potassium (3.4 - 5.0 mEq/L) 5.0 Chloride (100 - 108 mEq/L) 109 H Carbon Dioxide (21 - 33 mEq/l) 21 Anion Gap (0 - 20) 9 BUN (7 - 18 mg/dL) 24 H Creatinine (0.6 - 1.3 mg/dL) 1.3 Glomerular Filtr Rate (90 - 95) 63.7 L Glucose (70 - 110 mg/dL) 75 POC Glucose (70 - 110 MG/DL) 74 103 128 H Calcium (8.0 - 10.5 mg/dL) 7.9 L Hematology Hgb (12.5 - 16.9 g/dL) 7.1 L Hct (37.5 - 50.7 %) 22.7 L Toxicology Vancomycin Trough (10.0 - 20.0 mcg/mL) 12.8 Microbiology: Date/Time Procedure - Status Source Growth 09/04 1739 Occult Blood - COMP STOOL Recent Impressions: RADIOLOGY - XR ABDOMEN 1V (KUB) 09/04 1648 Report Impression - Status: SIGNED Entered: 09/04/2022 1757 IMPRESSION: Benign appearance of the abdomen. Impression By: [email or web address] - Roger Parra M.D . ULTRASOUND - [facility] VEIN UNI/LTD 09/05 1146 Report Impression - Status: SIGNED Entered: 09/05/2022 1333 IMPRESSION: 1. No evidence of deep vein thrombosis. 2. Complex heterogeneous hypoechoic fluid collec tion in the left calf region measuring 8.4 x 2.8 x 2.5 cm; there is no internal vascularity or peripheral hyperemia. May represe nt a hematoma. Impression By: TipABJames - Mert Ga M.D. RADIOLOGY - XR CHEST 1 V 09/05 1432 Report Impression - Status: SIGNED Entered: 09/05/2022 1515 IMPRESSION: Minimal bibasilar pulmonary opacities Impression By: Hakeem Jacobo Laboratory Tests: 09/04 09/04 09/04 09/04 09/04 1630 1557 1100 1031 0816 Chemistry POC Glucose (70 - 110 MG/DL) 128 H 107 99 Hematology Hgb (12.5 - 16.9 g/dL) 7.7 L Hct (37.5 - 50.7 %) 23.7 L Toxicology Vancomycin Trough (10.0 - 20.0 mcg/mL) 12.8 09/04 09/04 09/03 09/03 0721 0540 1944 1836 Chemistry POC Glucose (70 - 110 MG/DL) 87 124 H Hematology Hgb (12.5 - 16.9 g/dL) 6.8 L Hct (37.5 - 50.7 %) 21.2 L Toxicology Vancomycin Peak (30 - 40 MCG/ML) 27.4 L Microbiology: Date/Time Procedure - Status Source Growth 09/04 1037 Occult Blood - COLB STOOL 1.Diabetes mellitus type 2 uncontrolled complica tions. 2. 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 4. Sepsis 5. Prostate abscess. 6. Anemia 7. Chronic renal failure. Blood sugar 217-231 mg/dL.H/H 8.11/17. Adjust insulin dose. PT and OT. Electronically Signed by Braxton Chapin MD on 07/17 at 1452 RPT #:[id number] END OF REPORT 2022-09-23 14:48:00-00:[address] [facility] ([facility] Rehab Team Conference REPORT#:[id number] REPORT STATUS: Signed DATE:09/23/22 TIME: 1448 PATIENT: KARMA ROWLAND UNIT #: [id number] ROOM/BED: 537-1 : 63 AGE: 56 SEX: M ATTEND: Fredy Vences MD ADM AUTHOR: Mj Vences MD * ALL edits or amendments must be made on the el ectronic/computer document * Rehabilitation Team Conference Weekly Team Conference Team conf information: Date of conference: 09/23/22 Conference type: Interim Conference scribe: Columba Drew PTA INTERDISCIPLINARY TEAM MEETING PARTICIPANTS: TITLE NAME MD Mj Vences, RN Cornelio Roberson, SELENA PT Anthony Ro, PT OT Williams Mckeon, OT CM/SW Lucio Sinclair CM [facility] Amanda Lai, KEVIN Staff (8) NO ATTENDEE Staff (9) NO ATTENDEE OTHER NAME CREDENTIALS 1 YOU 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 [facility] CATHETER DRAINING WELL W/O KINKS INTERDISCIPLINARY TEAM UPDATES: LYDIA team conference update: PT IS AOX4 SPEECH CLEAR. EXPRESSES WANTS AND NEEDS. ROOM AIR. CONTINENT OF BOWEL LBM 09/22. [facility] CATH ETER DRAINING WELL W/O KINKS. STAND BY ASSIST WITH WC. ACHC, BG IS WNL. BEDTIM E LANTUS GIVEN WITH SNACKS. DRESSING CLEAN, DRY AND INTACT TO AMPUTATION TO RIGHT KNEE, ROB INTACT. ABRASION POSTERIIOR TO LEFT HEEL, ZINC APPLIED A ND OFFLOADING. SWALLOWS PILLS WHOLE. THIN LIQUIDS. PT USES CURRENT PAIN MEDS T O MANAGE PAIN. BED ALARM AND CALL LIGHT IN REACH. KNEE. PT team conference update: PT CONTINUES TO REQUI RE CGA TO MIN A FOR TXFRS AND REP/DEM INCR LT LE EDEMA-P.T. EDUC PT'S SPOUSE I N WRAPPING LT LE /PRACTICE AT NEXT TX. PT'S SPOUSE VERB INDEP W/STUMP DRSNG CH GELACIO AND WRAPPING. PT CONT TO BE UNSAFE W/STAND PVT TXFRS D/T LT LE KN EE INSTABILITY-REC SQUAT PVT OR SB FOR HOME TXFRS W/SPOUSE. REC HH P.T.,18"WC W/ELEV L EG RESTS,RW AND SB/GAIT BELT FOR DC OT team conference update: Pt progressing toward goals, show's improvements w adls and xfers Adls: Mod I to Mod assist, Xfers: Supervision Recc: HHOT, DME: drop arm bsc, sliding board ST team conference update: CM or SW team conference upd ate: PATIENT IS FROM HOME WITH A SUPPORTIVE SPOUSE. PLAN TO DC TO HOME WITH NEEDED DME AND HOME HEAL TH. PROVIDED FAMILY WITH INFORMATION ON SOCIAL SECURITY DISABILITY. Other discipline update 1: P.O INTAKE: >75% OF R ENAL DIET. Other discipline update 2: Other discipline update 3: REHAB DC GOALS: Patient's identified discharge goal: "I WOULD LI KE TO GO HOME WITH MY FAMILY" PT: PATIENT WILL LIKE TO GET STRONGER TO DC HOME AND GO BACK TO WORK ONCE HE RECEIVED HIS PROSTHETIC OT: "get stronger" Eating discharge goal: Independent (6) Shower/bathe self discharge goal: Independent ( 6) Upper body dressing discharge goal: Independent (6) Lower body dressing discharge goal: Independent (6) Chair/bed to chair transfer discharge goal: Set up/clean-up only (5) Transfer on/off toilet or commode discharge goa l: Supervise/touch asst (4) Walking 50 feet with two turns discharge goal: Med cond/safety concern Walking 150 feet discharge goal: Med cond/safet y concern Four steps discharge goal: Med cond/safety conc mell Twelve steps discharge goal: Med cond/safety co ncern [place] 150 feet discharge goal: Independent (6) Goal 1 - Bowel function: PATIENT WILL REMAIN CON TINENT OF BOWEL Goal 2 - Bladder function: PATIENT WILL REGAIN B LADDER CONTROL Nursing goal 3: PATIENT WILL BE FREE FROM FALLS DURING STAY Nursing goal 4: PATIENT WILL MAINTAIN SKIN INTEG RITY Nursing goal 5: DISCHARGE PLANNING: Barriers to discharge: Fall risk, Endurance, Ofelia n, Caregiver, NWB RLE, DIFFICULTY WITH TRANSFERS Strategies for D/C barriers: Fall recovery train ing, Evaluate pain control, Scheduled rest breaks, LE EX, WC MOB, TRANSFER T RAINING, CAREGIVER TRAINING Estimated length of stay in days: 17 Anticipated discharge date: 09/24/22 Discharge date adjustment comment: PENDING MEDIC AL CLEARANCE Identified financial and/or community resource n eeds: Family/Caregiver training days: PATIENT AND FAMI LY WILL BE EDUCATED ON USE OF GAIT BELT TO LOWER PT TO THE FLOOR IN THE EVENT OF LOSS OF BALANCE TO PREVENT FALL OR INJURY. 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 IRF cont stay criteria See my note at 1449 RPT #:[id number] END OF REPORT 2022-09-23 14:25:00-00:[address] [facility] ([facility] Infectious Dis. Progress Note REPORT#:[id number] REPORT STATUS: Signed DATE:09/23/22 TIME: 1425 PATIENT: KARMA ROWLAND UNIT #: [id number] ROOM/BED: [place] [id number] : 61 AGE: 56 SEX: M ATTEND: Fredy Vences MD ADM AUTHOR: Anthony Curtis MD * ALL edits or amendments must be made on the el Responsive Sports/computer document * Subjective Chief complaint: Follow-up on MRSA bacteremia, prostatic abscess. HPI: Patient reports feeling better subjectively. Den ies acute or new complaints. No major overnight events. Objective General VS/I O: Vital Signs Date Temp Pulse Resp B/P B/P Mean Pulse Ox FiO2 09/22-09/23 97.3-99.0 84-90 16-18 122-149/64-74 83.1-98.0 96-100 Last Documented: Result Date Time Pulse Ox 98 / 0725 B/P 149/69 / 0725 B/P Mean 95.3 09/23 0725 Temp 97.3 09/23 0725 Pulse 88 / 0725 Resp 17 / 0725 O2 Delivery Room air 09/22 2310 O2 Flow Rate 2 09/08 1322 Vital Signs: Date Time Temp Pulse Resp B/P B/P Pulse O2 O2 F low FiO2 Mean Ox Delivery Rate 09/23 07 97.3 88 17 149/69 95.3 98 05/ 2310 97.9 84 16 146/74 98.0 100 Room air 09/22 1844 97.9 90 16 122/64 83.1 96 Room air 09/22 1541 99.0 85 18 127/71 89.4 96 Room air 24 hour I O ending at 0700: 09/23 0700 09/22 1900 Intake Total 240 1000 Output Total 700 Balance 240 300 Intake, Oral 240 1000 Number 0 Incontinent Voids Number Voids 0 Output, Urine 700 Output, 0 Urine/Stool Mix PATIENT WEIGHT: Weight (lb): 167 Weight (oz): 12.35 Weight (kg): 76.100 Physical Exam General appearance: alert, awake, no acute distr ess Cardiovascular: normal heart sounds, regular rat e rhythm Respiratory: clear to auscultation, aerating wel l Abdomen: non-tender, soft, no distention Extremities: edema (in left leg and thig h improved), moves all, right BKA Left foot wound +dressing in place 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 According to him, he noticed a bliste r on his right foot around 3 days prior to presentation. His foot got progres sively more swollen and erythema extended proximally to his lateral foot and ankle. CT abdomen and pelvis with contrast is concerning for possible prostate abscess. CT of lower extremity without contrast s hows extensive soft tissue edema with mottled gas in the subcutaneous and intramu scular compartments of the foot, compatible with gas -forming infection. Patient's blood cultures hav e come back positive for MRSA in 2 out of 2 sets. Patient has had persistent p ositive cultures for MRSA. He underwent a debridement of his foot on and cultures grew MRSA. Patient was started on vanco mycin and clindamycin on 08/18/2022. His MRI showed a prostate abscess. 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 Pt underwent a transrectal aspiration and u nroofing of prostate abscess 08/26/2022 and cultures grew Citrobacter, Enterococcus, MRSA. 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 JIMENA done 09/02/2022, which was negative fo r vegetations. Patient was transferred to Rehab on 09/02/2022. *MRSA bacteremia, refractory, now cleared *Prostatic abscess, s/p unroofing 08/26/2022 *ERIKA *Hyponatremia *Diabetic neuropathy *Diabetes mellitus type 2 *Hypertension *Anemia -Afebrile; although with an isolated low-grade t emperature spike of 37.2 C. -Leukocytosis of 11.8 on today's CBC noted; over all, downtrending. -No recent cultures. Last blood cultures from negative x2. Plan: -On daptomycin and meropenem. -Finishing treatment 09/24/2022 (stop after aditya rrow's dosages). -Would finish treatment as planned and then madelin tor off antimicrobials. -Continue supportive care. Electronically Signed by Anthony Curtis MD on 07/17 at 1426 RPT #:[id number] END OF REPORT 2022-09-23 13:51:00-00:[address] [facility] ([facility]) Cardiology Progress Note REPORT#:[id number] REPORT STATUS: Signed DATE:09/23/22 TIME: 1351 PATIENT: KARMA ROWLAND UNIT #: [id number] ROOM/BED: [place] [id number] : 63 AGE: 56 SEX: M ATTEND: Fredy Vences MD ADM AUTHOR: Rohit Benitez C[employer]ER * ALL edits or amendments must be made on the el [employer]computer document * Rohti Benitez 09/23/22 1351: Subjective Chief complaint: weakness Free Text Subj Notes Free Text Subj Notes: Patient seen and evaluated in the gym. Working w ith physical therapy, no new cardiac complaint. Objective General VS/I O: 24 hour I O ending at 0700: 09/23 0700 09/22 1900 Intake Total 240 1000 Output Total 700 Balance 240 300 Intake, Oral 240 1000 Number 0 Incontinent Voids Number Voids 0 Output, Urine 700 Output, 0 Urine/Stool Mix Vital Signs: Date Time Temp Pulse Resp B/P B/P Pulse O2 O2 Flow FiO2 Mean Ox Delivery Rate 09/23 0725 97.3 88 17 149/69 95.3 98 09/22 2310 97.9 84 16 146/74 98.0 100 Room air 09/22 1844 97.9 90 16 122/64 83.1 96 Room air 09/22 1541 99.0 85 18 127/71 89.4 96 Room air PATIENT WEIGHT: Weight (lb): 167 Weight (oz): 12.35 Weight (kg): 76.100 Medications: Active Meds + DC'd Last 24 Hrs Sodium Bicarbonate (SODIUM BICARBONATE) 650 MG B ID PO Sodium Polystyrene Sulfonate (KAYEXELATE) 30 GM Q4H PO Lactulose (LACTULOSE) 20 GM ONCE ONE PO Amlodipine Besylate (NORVASC) 10 MG DAILY PO Prednisone (predniSONE) 50 MG C BK PO Hydralazine HCl (APRESOLINE) 100 MG Q8HR PO Insulin Glargine (Semglee) 19 UNIT BEDTIME SUBQ Insulin Human Lispro (HUMALOG) 10 UNIT AC SUBQ Carvedilol (COREG) 25 MG C BK DIN PO Gabapentin (NEURONTIN) 100 MG Q8HR PO Oxycodone/Acetaminophen (PERCOCET 5/325MG TAB) 2 TAB Q4H PRN PRN PO Folic Acid (FOLIC ACID) 2 MG DAILY PO Multivitamins (TAB-A-MOHAN) 1 TAB DAILY PO Furosemide (LASIX 20MG INJ) 20 MG BLOOD-DOSE BET WEEN IV (CKD) Sodium Chloride (SODIUM CHLORIDE) 10 ML ASDIR IV Pantoprazole Sodium (PROTONIX) 40 MG Q12HR IV Polyethylene Glycol (MIRALAX) 17 GM DAILY PO Sennosides (Senna Lax 8.6 MG TABLET) 8.6 MG MADALYN Y PO Sodium Chloride (SODIUM CHLORIDE) 10 ML ASDIR NV N IV Amitriptyline HCl (ELAVIL) 25 MG BEDTIME PO Zinc Oxide (ZINC OXIDE 30 GM OINTMENT) 1 APPLIC DAILY TOPICAL Sterile Water (WATER FOR IRRIGATION) DRESSING CH GELACIO ASDIR PRN IRR Insulin Human Lispro (HUMALOG) 0 AC HS SUBQ Dextrose/Water (DEXTROSE 10% IN WATER) 125 ML DIR PRN IV (CKD) Dextrose/Water (DEXTROSE 10% IN WATER) 250 ML DIR PRN IV (CKD) Glucagon (GLUCAGON) 1 MG ASDIR PRN IM Lidocaine (LIDODERM) 1 PATCH DAILY TOPICAL Acetaminophen (TYLENOL) 650 MG Q6H PRN PRN PO Bisacodyl (DULCOLAX) 10 MG DAILY PRN PRN RECTAL Docusate Sodium (COLACE) 100 MG Q12H PRN PRN PO Hydralazine HCl (APRESOLINE) 10 MG Q6H PRN PRN I V Ondansetron HCl (ZOFRAN) 4 MG Q6H PRN PRN IV Physical Exam General appearance: alert, awake, oriented Neck: no bruit/NL carotids, no JVD Cardiovascular: CV assessment: regular rate and rhythm, no ecto py, no gallop Respiratory: clear to auscultation, no distress Abdomen: soft, non-tender Genitourinary: urinary catheter Lower extremity: LE assessment: edema, normal temperature 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 X 3 Considered stroke alert: no Wound/incision: Location: right bka Psychiatry: normal affect, normal judgment/insig ht, normal mood Results Findings/Data: Laboratory Tests 09/23 09/23 09/23 09/23 09/22 1050 0516 0501 0331 1841 Chemistry Sodium (134 - 147 mEq/L) 138 Potassium (3.4 - 5.0 mEq/L) 5.6 H Chloride (100 - 108 mEq/L) 112 H Carbon Dioxide (21 - 33 mEq/l) 19 L Anion Gap (0 - 20) 13 BUN (7 - 18 mg/dL) 70 H Creatinine (0.6 - 1.3 mg/dL) 2.1 H Glomerular Filtr Rate (90 - 95) 35.8 L Glucose (70 - 110 mg/dL) 217 H POC Glucose (70 - 110 MG/DL) 231 H 226 H 190 H 156 H Calcium (8.0 - 10.5 mg/dL) 7.8 L Phosphorus (2.5 - 4.9 MG/DL) 5.2 H Magnesium (1.80 - 2.40 mg/dL) 2.22 09/22 1537 Chemistry POC Glucose (70 - 110 MG/DL) 118 H Laboratory Tests 09/23 0501 Hematology WBC (4.5 - 11.0 x10 3/uL) 11.8 H RBC (4.00 - 5.60 x10 6/uL) 2.74 L Hgb (12.5 - 16.9 g/dL) 7.8 L Hct (37.5 - 50.7 %) 25.4 L MCV (81.0 - 99.0 fL) 92.7 MCH (27.0 - 33.0 pg) 28.5 MCHC (33.0 - 37.0 g/dL) 30.7 L RDW (11.5 - 14.5 %) 16.1 H Plt Count (150 - 400 x10 3/uL) 300 MPV (7.0 - 9.0 fL) 9.4 H Neut % (Auto) (56.0 - 77.0 %) 84.8 H Lymph % (Auto) (14.0 - 32.0 %) 9.6 L Boundary % (Auto) (4.8 - 9.0 %) 4.5 L Eos % (Auto) (0.3 - 3.7 %) 0.1 L Baso % (Auto) (0.0 - 2.0 %) 0.1 Neut # (Auto) (2.0 - 7.6 x10 3/uL) 10.02 H Lymph # (Auto) (1.0 - 3.8 x10 3/uL) 1.13 Boundary # (Auto) (0.1 - 0.8 x10 3/uL) 0.53 Eos # (Auto) (0.0 - 0.2 x10 3/uL) 0.01 Baso # (Auto) (0.0 - 0.2 x10 3/uL) 0.01 Abs Immat Gran (auto) (0.00 - 0.03 x10 3/uL) 0 .11 H Add Manual Diff NO Immature Gran % (0.0 - 2.0 %) 0.9 Nucleated RBC % (0 - 0 %) 0.0 Nucleated RBCs # (Man) (0.0 - 0.1 x10 3/uL) 0.0 0 Laboratory Tests 09/23 0501 Chemistry Magnesium (1.80 - 2.40 mg/dL) 2.22 Diagnosis, Assessment Plan Consultants: cardiology, endocrinology, hospital ist, infectious disease, podiatry Free Text DxA P Notes Free Text DxA P Notes: Impression: 1. Debility 2. Infected right foot status post BKA 3. Bacteremia 4. Diabetes 5. Hypertension 6. Anemia 7. Acute Diastolic CHF 8. ERIKA 07/2022: Echocardiogram with normal LVEF, grade 1 diastolic dysfunction, mildly dilated LA, and no significant valvular abnormal ities Recommendation: Patient initially presented with DKA and sepsis. Diagnosed with right foot infection, underwent I D, now status post BKA. P atient had persistent bacteremia with MRSA, underwent JIMENA with negativ e findings of endocarditis. Patient now transferred to [facility] for physical therapy. Known cardiac history of hypertension and hyperlipide renetta. Vital signs stable. Echocardiogram with normal LVEF, grade 1 diastolic dysfunction, mildly dila carlos LA, and no significant valvular abnormalities. Continue to monitor bloo d pressure trend. Continue wound care and IV antibiotic therapy. Continue P T/OT. Supportive care. 09/04: Patient complaining of shortness of breath, abdominal distention and lower extremity edema. Renal function and electrolytes stable. Will give one-time dose of IV Lasix 40 mg. Blood pressure stable. P ending abdominal x-ray. Monitor intake and output. Check BMP in the morn ing. Supportive care. Plan of care discussed with patient, RN and Dr. Parham. 09/05: Patient responded well to IV Lasix , good urine output and improvement in shortness of breath. Chest x-ray ordered . Currently on Lasix 20 mg p.o. daily. Continue monitor renal function and electrolyte s. Pending lower extremity Doppler for lower extremity edema. Continue PT/O T. Supportive care. Plan of care discussed with patient, RN and Dr. Parham. 09/08: Blood pressure has been elevated, started on Coreg 3.125 mg twice daily. Continue monitor blood pressure trend and adjust medication as needed. Still having left lower extremity edema, venous Dopple r negative for DVT. continue gentle diuresis with Lasix 20 mg p.o. daily. Rec ommend Oralia wrap. Patient remains anemic, plan for EGD/colonoscopy today. Supportive care. Plan of care discussed with patient, family, RN and Dr. Parham . 09/09: Patient doing well status post EGD /colonoscopy, negative findings for GI bleed. Blood pressure improving, increased on Co reg to 12.5 mg twice daily. Elevated creatinine noted, nephrology following. No new cardiac complaint. Continue wound care. Continue PT/OT. Supportive care. Plan of care discussed with patient, RN and Dr. Parham. 09/10: Blood pressure remained stable on current regimen of Coreg. Patient continue to have left lower extremity edema. Cur rently on Lasix 20 mg daily. Creatinine 1.9 today, continue to monito r. Patient's albumin level was 1.3, it is possible that patient's lower extremity edema could be related to hypoalbuminemia leading to third spacing. Contin ue PT/OT. Supportive care. Plan of care discussed with patient, RN and Dr. Parham. 09/11: Patient doing well from cardiac standpoint . Blood pressure well controlled. Improvement in lower extremity edema with elevating leg while in bed. Creatinine 2.0 today. Denies shortness of b reath. Will hold diuretic for now and monitor renal function. Supportive care. Plan of care discussed with patient, RN and Dr. Parham. 09/12: Creatinine remains elevated at 2.4 today, antibiotic regimen also being adjusted. Patient still with lower extremity rose ma and rales on physical examination. Will check chest x-ray and limited echocardiogram for further evaluation. Check BNP. Continue hold diuretic fo r now. Supportive care. Plan of care discussed with patient, RN and Dr. Parham . 09/15: Repeat echocardiogram showed LVEF of 55 to 60%, no regional wall motion abnormalities, left ventricu lar diastolic function parameters are indeterminate, mildly dilated LA, and no pericardial effusion. BNP elevated 297. Continue to hold diuretic due to Elevate d creatinine, nephrology following and may consider renal biopsy. Continue to monitor fluid volume s tatus. Overall improvement in lower extremity with Oralia wrap. Continue physical therapy. Supportive care. Plan of care discussed with patient, RN and Dr. Parham. 09/16: Blood pressure slightly elevated, started on hydralazine 25 mg every 8 hours. Continue carvedilol monitor blood pressur e trend. Cr. 2.7 today, continue monitor. Tolerating physical therapy. E uvolemic by physical examination. Supportive care. Plan of care discu ssed with patient, RN and Dr. Parham. 09/17: Blood pressure remains elevated, likely re lated to steroid therapy. Hydralazine increased to 50 mg 3 times daily. Ne phrology managing diuretic therapy. Continue monitor renal function and pako ctrolytes. Improvement in lower extremity swelling. Patient denies chest p ain or shortness of breath. Tolerating PT/OT. Supportive care. Plan of care discussed with patient, RN and Dr. Parham. 09/18: Blood pressure remains elevated du e to steroid therapy. Continue monitor blood pressure trend, hydralazine increa sed to 75 mg 3 times daily. Responding to diuretic regimen with Lasix, good urine outpu t. Creatinine improving, 2.2 today. Continue to monitor fluid volume status. Continue physical therapy. Supportive care. Plan of care discussed with lori hart RN and Dr. Parham. 09/19: Blood pressure improving, continue hydrala zine and carvedilol. Overall improvement in fluid volume status. No n ew cardiac complaint. Continue steroid taper per nephrology. Progressing in therapy. Di scharge planning. Supportive care. Plan of care discussed with patient, RN an d Dr. Parham. 09/20: Patient doing much bet ter since started on steroid therapy, creatinine is slowly improving, blood pressure overall improvi ng, nephrology is adjusting antihypertensive medication regimen, diuretic re gimen per nephrology, overall stable cardiac status, discussed with patient an d . 09/21: Creatinine now below 2, at 1.9, blood pres sure better controlled with carvedilol and hydralazine, fluid status is improving, continue diuretic regimen per nephrology, supportive care, will follow. 09/22: Patient remains from c ardiac standpoint. Blood pressure elevated, started on amlodipine 10 mg daily. Continue steroid ther apy and diuretic per nephrology. Creatinine 1.8 today. Tolerating phy sical therapy. Discharge planning. Supportive care. Plan of care discusse d with patient, RN and Dr. Parham. 09/23: Blood pressure improving on current regime n. Continue to monitor renal function, creatinine 2.1 today with elevated pot assium, received Kayexalate. Tolerating physical therapy. Supportive care. Pl an of care discussed with patient, RN and Dr. Parham. Gianni Parham 09/27/22 1304: Diagnosis, Assessment Plan Additional comments: Patient was seen and examined at bedside , agree with above assessment and plan as documented by nurse practitioner. Will follow . Electronically Signed by Rohit Benitez CLAY MILLER on 0 09/23/22 at 1648 at 1655 RPT #:[id number] END OF REPORT 2022-09-23 10:57:00-00:00 [facility] Hospitalist Progress Note REPORT#:[id number] REPORT STATUS: Signed DATE:09/23/22 TIME: 1057 PATIENT: KARMA ROWLAND UNIT #: [id number] ROOM/BED: [place] [address] : 63 AGE: 56 SEX: M ATTEND: Fredy Vences MD ADM AUTHOR: Wilbert Ramires MD * ALL edits or amendments must be made on the [employer]/computer document * Subjective Chief complaint: follow up s/p BKA. feels ok Review of Systems All systems rev neg: except as noted Objective General VS/I O: Vital Signs: Date Time Temp Pulse Resp B/P B/P Pulse O2 O2 F low FiO2 Mean Ox Delivery Rate 09/23 0725 97.3 88 17 149/69 95.3 98 09/22 2310 97.9 84 16 146/74 98.0 100 Room air 09/22 1844 97.9 90 16 122/64 83.1 96 Room air 09/22 1541 99.0 85 18 127/71 89.4 96 Room air 24 hour I O ending at 0700: 09/23 0700 09/22 1900 Intake Total 240 1000 Output Total 700 Balance 240 300 Intake, Oral 240 1000 Number 0 Incontinent Voids Number Voids 0 Output, Urine 700 Output, 0 Urine/Stool Mix PATIENT WEIGHT: Weight (lb): 167 Weight (oz): 12.35 Weight (kg): 76.100 Medications: Active Meds + DC'd Last 24 Hrs Sodium Bicarbonate (SODIUM BICARBONATE) 650 MG B ID PO Sodium Polystyrene Sulfonate (KAYEXELATE) 30 GM Q4H PO Lactulose (LACTULOSE) 20 GM ONCE ONE PO (DC) Amlodipine Besylate (NORVASC) 10 MG DAILY PO Prednisone (predniSONE) 50 MG C BK PO Hydralazine HCl (APRESOLINE) 100 MG Q8HR PO Insulin Glargine (Semglee) 19 UNIT BEDTIME SUBQ Insulin Human Lispro (HUMALOG) 10 UNIT AC SUBQ Meropenem (MEROPENEM) 500 MG Q8H IV (DC) Sterile Water (WATER FOR INJECTION) 10 ML Carvedilol (COREG) 25 MG C BK DIN PO Gabapentin (NEURONTIN) 100 MG Q8HR PO Oxycodone/Acetaminophen (PERCOCET 5/325MG TAB) 2 TAB Q4H PRN PRN PO Folic Acid (FOLIC ACID) 2 MG DAILY PO Multivitamins (TAB-A-MOHAN) 1 TAB DAILY PO Furosemide (LASIX 20MG INJ) 20 MG BLOOD-DOSE BET WEEN IV (CKD) Sodium Chloride (SODIUM CHLORIDE) 10 ML ASDIR IV Pantoprazole Sodium (PROTONIX) 40 MG Q12HR IV Polyethylene Glycol (MIRALAX) 17 GM DAILY PO Sennosides (Senna Lax 8.6 MG TABLET) 8.6 MG MADALYN Y PO Sodium Chloride (SODIUM CHLORIDE) 10 ML ASDIR NV N IV Amitriptyline HCl (ELAVIL) 25 MG BEDTIME PO Zinc Oxide (ZINC OXIDE 30 GM OINTMENT) 1 APPLIC DAILY TOPICAL Sterile Water (WATER FOR IRRIGATION) DRESSING CH GELACIO ASDIR PRN IRR Insulin Human Lispro (HUMALOG) 0 AC HS SUBQ Dextrose/Water (DEXTROSE 10% IN WATER) 125 ML DIR PRN IV (CKD) Dextrose/Water (DEXTROSE 10% IN WATER) 250 ML DIR PRN IV (CKD) Glucagon (GLUCAGON) 1 MG ASDIR PRN IM Lidocaine (LIDODERM) 1 PATCH DAILY TOPICAL Acetaminophen (TYLENOL) 650 MG Q6H PRN PRN PO Bisacodyl (DULCOLAX) 10 MG DAILY PRN PRN RECTAL Docusate Sodium (COLACE) 100 MG Q12H PRN PRN PO Hydralazine HCl (APRESOLINE) 10 MG Q6H PRN PRN I V Ondansetron HCl (ZOFRAN) 4 MG Q6H PRN PRN IV Physical Exam General appearance: alert, awake, oriented Head/Eyes: atraumatic, normocephalic ENT: moist mucosal membranes Neck: no JVD Cardiovascular: normal heart sounds, regular rat e rhythm Respiratory: aerating well, clear to auscultatio n Abdomen: non-tender, normal bowel sounds Genitourinary: no bladder distention Extremities: edema (1+ pitting edema to thigh), moves all, normal capillary refill Musculoskeletal: normal inspection 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 X 3, 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 Considered stroke alert: no Skin: dry, intact Psychiatry: normal affect, normal judgment/insig ht Results Findings/Data: Laboratory Tests 09/23 09/23 09/23 09/22 09/22 0516 0501 0331 1841 1537 Chemistry Sodium (134 - 147 mEq/L) 138 Potassium (3.4 - 5.0 mEq/L) 5.6 H Chloride (100 - 108 mEq/L) 112 H Carbon Dioxide (21 - 33 mEq/l) 19 L Anion Gap (0 - 20) 13 BUN (7 - 18 mg/dL) 70 H Creatinine (0.6 - 1.3 mg/dL) 2.1 H Glomerular Filtr Rate (90 - 95) 35.8 L Glucose (70 - 110 mg/dL) 217 H POC Glucose (70 - 110 MG/DL) 226 H 190 H 156 H 118 H Calcium (8.0 - 10.5 mg/dL) 7.8 L Phosphorus (2.5 - 4.9 MG/DL) 5.2 H Magnesium (1.80 - 2.40 mg/dL) 2.22 Laboratory Tests 09/23 0501 Hematology WBC (4.5 - 11.0 x10 3/uL) 11.8 H RBC (4.00 - 5.60 x10 6/uL) 2.74 L Hgb (12.5 - 16.9 g/dL) 7.8 L Hct (37.5 - 50.7 %) 25.4 L MCV (81.0 - 99.0 fL) 92.7 MCH (27.0 - 33.0 pg) 28.5 MCHC (33.0 - 37.0 g/dL) 30.7 L RDW (11.5 - 14.5 %) 16.1 H Plt Count (150 - 400 x10 3/uL) 300 MPV (7.0 - 9.0 fL) 9.4 H Neut % (Auto) (56.0 - 77.0 %) 84.8 H Lymph % (Auto) (14.0 - 32.0 %) 9.6 L Boundary % (Auto) (4.8 - 9.0 %) 4.5 L Eos % (Auto) (0.3 - 3.7 %) 0.1 L Baso % (Auto) (0.0 - 2.0 %) 0.1 Neut # (Auto) (2.0 - 7.6 x10 3/uL) 10.02 H Lymph # (Auto) (1.0 - 3.8 x10 3/uL) 1.13 Boundary # (Auto) (0.1 - 0.8 x10 3/uL) 0.53 Eos # (Auto) (0.0 - 0.2 x10 3/uL) 0.01 Baso # (Auto) (0.0 - 0.2 x10 3/uL) 0.01 Abs Immat Gran (auto) (0.00 - 0.03 x10 3/uL) 0. 11 H Add Manual Diff NO Immature Gran % (0.0 - 2.0 %) 0.9 Nucleated RBC % (0 - 0 %) 0.0 Nucleated RBCs # (Man) (0.0 - 0.1 x10 3/uL) 0.0 0 Diagnosis, Assessment Plan Consultants: cardiology, endocrinology, hospital ist, infectious disease, podiatry Free Text DxA P Notes Free text DxA P notes: Gangrene of right foot s/p Below- knee amputatio n Prostate abscess MRSA bacteremia Hx of Diabetes, Diabetic neuropathy HTN ERIKA PLANS: Continue with PT/OT per primary Wound care and Abx as per ID Hepain PPX IV iron BS better but likely to incr ease with re-initiation of steroids x3 days started by Nephrology for AIN - Endo adjusting insulin pain control Edema about the same, Lasix as per renal Hgb stabilized. continue to monitor BP elevated. continue to adjust meds cardio following K+ slightly up - give kayexalate creatinine up a little - continue to trend Electronically Signed by Wilbert Ramires MD on at 0806 RPT #:[id number] END OF REPORT 2022-09-23 10:13:00-00:00 [facility] G[facility] Progress Note REPORT#:[id number] REPORT STATUS: Signed DATE:09/23/22 TIME: 1013 PATIENT: KARMA ROWLAND UNIT #: [id number] ROOM/BED: [place] [address] : 63 AGE: 56 SEX: M ATTEND: Fredy Vences MD ADM AUTHOR: Kassie Avitia MD * ALL edits or amendments must be made on the [employer]/computer document * Subjective HPI: Patient is a 56-year-old male with history of di abetes mellitus type 2 and hypertension who was initially admitted for alte red mental status and right- sided foot infection. 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 The p atient is anemic with current Hgb 7.1. He has received a total of 3 un its pRBCs during this hospitalization. KUB on 09/04 was negative for acute GI process. T he patient denies overt GIB, dark tarry stools, nausea, a bdominal pain, or vomiting. He has never had EGD or colonoscopy. 09/06: No complaints today. Hemoglobin stable. No overt GI bleed. Plan for colonoscopy and endoscopy on Thursday 09/07: No complaints today. No overt GI bleed. Pl anning for colonoscopy and endoscopy tomorrow 09/08: EGD mild gastritis. colonoscopy rectal eugenia yp s/p snare. No other abnormalities 09/09: doing well. Seen at the gym. No bleeding. 09/10: Doing well. No bleeding. tolerating diet. Movig bowels 09/11: doing well. States his leg swelling is bet ter. Tolerating diet. having normal BM 09/12: dooing well. doing work-out at the gym. To lerating diet. Normal BMs. Stable H/H 09/14-Sitting up in wheelchair, family at bedside . Denies n/v/abd pain/GIB 09/15: Doing well. H/H stable. No melena or BRBPR . No nausea or vomiting. Appetite is well 09/16: doing well. no complaints. eating well 09/17: stable H/H. No complaints. 09/18/22: H/H fluctuating but overall stable 09/19: H/H stable up to 8 today. No complaints. 09/20: Hemoglobin relatively stable. No complaint 09/21: no complaints. feeling well 09/22/2022: doing well. looking forward to be disc harged 09/23/22: stable H/H no bleeding. Objective Physical Exam HEENT: atraumatic, normocephalic Neck: full range of motion, non-tender Respiratory: symmetric expansion, no distress Abdomen: non-tender, normal bowel sounds, soft, no distention, no guarding Extremities: right BKA Considered stroke alert: no Skin: dry Diagnosis, Assessment Plan Free Text A P: 1. Positive FOBT-and anemia: The patient denies overt GIB, dark tarry stools, nausea, abdominal pain, or vomiting. He is not o n anticoagulation therapy. -Continue PPI. The patient has never had EGD or colonoscopy prior to this admission s/p EGD and colonoscopy. EGD showed mild gastrit is. Colonoscopy showed rectal polyp that was resected by snare. no evidence of bleeding. Pathology of polyp came back as tubular adenoma. recommend repeatin g colonoscopy in 5 years Anemia likely secondary to chronic kidney diseas e and mild oozing from his stump. Can consider video capsule endoscopy as outpt if evidence of dropping H/H H/H remains stable Consider reducing frequency of H/H check tolerating diet and moving his bowels Will follow along Consultants: cardiology, endocrinology, hospital ist, infectious disease, podiatry at 1014 RPT #:[id number] END OF REPORT 2022-09-23 08:22:00-00:00 [facility]) Rehab Progress Note REPORT#:[id number] REPORT STATUS: Signed DATE:09/23/22 TIME: 821 PATIENT: KARMA ROWLAND UNIT #: [id number] ROOM/BED: [place] [address] : 61 AGE: 56 SEX: M ATTEND: Fredy Vences MD ADM AUTHOR: Mj Vences MD * ALL edits or amendments must be made on the el [employer]ronic/computer document * Subjective Chief complaint: Rehab follow-up Patient doing well, making good progress BKA without bleeding Edema improving Eating 75-100% at bedside + BM Denies MCBRIDE/N/V/D/CP 14 systems reviewed and neg. except that above. History of present illness: 56 yo HAM with long h/o DM, and HTN who was admitted for fever, flulike symptoms and altered mental status on 08/18. He was doing well until about 3 days prior to admission when he noted blister to have formed o n the dorsum of his foot. His foot started progressively getting more swollen and the blisters started enlarging and extending to his lateral f oot and ankle. He started feeling weak and nauseated. He was noted to have altered mentation and was brought to our ER. He was noted to be in DKA with Blood sugars grea ter than 600. He was seen by podiatry and surgery for BLE wounds and infectio n. He was treated in ICU for sepsis and DKA. He underwent incisional and excisional debridement of right foot and right ankle by podiatry. Patient also found to have prostate abscess underwent transrectal ultrasound aspiration of a bscess and transurethral resection of prostate and unroofing of abscess b y urology Dr. Bass. Endocrinology treated the DKA and blood sugars m [facility] improved. Patient's right foot was not salvageable and patient und erwent right BKA by Dr. LEROY on 08/28. Patient blood cultures showe d MRSA. Patient continued on antibiotics as per ID. MRI of the pelvis and foot completed. Patient r equired multiple PRBCs for anemia. Patient was found to have a possible small hematoma of the left calf on ultrasound. He complains of pain and swelling of the left ankle. Patient hemodynamically stable and plans are to be transferred to stepdown unit. He is on heparin subcu for VTE. Af ter surgery he is now being mobilized by PT and OT. He is wearing a [employer] orthotic for right knee /BKA protection. Prior to admission the patient was independent living in a single-story house with his spouse with a few steps up to front and back doo r. 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 is at bedside. Patient denies nausea, vomiting, fever, chills, chest pain, shortness of breath with diz ziness. He is requiring IV Dilaudid for pain control. Mental status back to baseline. Pt is progressing slowly with therapy d/t weakness and pain, self care deficit, decreased endurance and balance, and decreased functional mobility. Pt requiring acute inpt rehab for multidiscipli nary team of nursing, therapy, and physicians. Pt is willing and able to partici- kathleen in 3 hr/day inpt rehab to d/c home safely. Pt' s prior level of function was independent. Objective General VS: Vital Signs: Date Time Temp Pulse Resp B/P B/P Pulse O2 O2 F low FiO2 Mean Ox Delivery Rate 09/23 0725 97.3 88 17 149/69 95.3 98 05/ 2310 97.9 84 16 146/74 98.0 100 Room air / 1844 97.9 90 16 122/64 83.1 96 Room air / 1541 99.0 85 18 127/71 89.4 96 Room air PATIENT WEIGHT: Weight (lb): 167 Weight (oz): 12.35 Weight (kg): 76.100 Medications: Active Meds + DC'd Last 24 Hrs Sodium Bicarbonate (SODIUM BICARBONATE) 650 MG B ID PO Sodium Polystyrene Sulfonate (KAYEXELATE) 30 GM Q4H PO (DC) Lactulose (LACTULOSE) 20 GM ONCE ONE PO (DC) Amlodipine Besylate (NORVASC) 10 MG DAILY PO Prednisone (predniSONE) 50 MG C BK PO Hydralazine HCl (APRESOLINE) 100 MG Q8HR PO Insulin Glargine (Semglee) 19 UNIT BEDTIME SUBQ Insulin Human Lispro (HUMALOG) 10 UNIT AC SUBQ Carvedilol (COREG) 25 MG C BK DIN PO Gabapentin (NEURONTIN) 100 MG Q8HR PO Oxycodone/Acetaminophen (PERCOCET 5/325MG TAB) 2 TAB Q4H PRN PRN PO Folic Acid (FOLIC ACID) 2 MG DAILY PO Multivitamins (TAB-A-MOHAN) 1 TAB DAILY PO Furosemide (LASIX 20MG INJ) 20 MG BLOOD-DOSE BET WEEN IV (CKD) Sodium Chloride (SODIUM CHLORIDE) 10 ML ASDIR IV Pantoprazole Sodium (PROTONIX) 40 MG Q12HR IV Polyethylene Glycol (MIRALAX) 17 GM DAILY PO Sennosides (Senna Lax 8.6 MG TABLET) 8.6 MG MADALYN Y PO Sodium Chloride (SODIUM CHLORIDE) 10 ML ASDIR P RN IV Amitriptyline HCl (ELAVIL) 25 MG BEDTIME PO Zinc Oxide (ZINC OXIDE 30 GM OINTMENT) 1 APPLIC DAILY TOPICAL Sterile Water (WATER FOR IRRIGATION) DRESSING CH GELACIO ASDIR PRN IRR Insulin Human Lispro (HUMALOG) 0 AC HS SUBQ Dextrose/Water (DEXTROSE 10% IN WATER) 125 ML DIR PRN IV (CKD) Dextrose/Water (DEXTROSE 10% IN WATER) 250 ML DIR PRN IV (CKD) Glucagon (GLUCAGON) 1 MG ASDIR PRN IM Lidocaine (LIDODERM) 1 PATCH DAILY TOPICAL Acetaminophen (TYLENOL) 650 MG Q6H PRN PRN PO Bisacodyl (DULCOLAX) 10 MG DAILY PRN PRN RECTAL Docusate Sodium (COLACE) 100 MG Q12H PRN PRN PO Hydralazine HCl (APRESOLINE) 10 MG Q6H PRN PRN I V Ondansetron HCl (ZOFRAN) 4 MG Q6H PRN PRN IV Physical Exam General appearance: alert, awake, no acute distr ess Psych: alert, normal affect, oriented x 3 HEENT: anicteric, sclera clear Neck: supple, no JVD Cardiovascular: S1/S2, no murmur Respiratory: aerating well, clear bilaterally Abdomen: bowel sounds present, non-distended, so ft, non-tender Skin: no rash, R BKA HEALING. 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 3, CNII-XII intact Results Findings/Data: Laboratory Tests: 09/23 09/23 09/23 09/23 1050 0516 0501 0331 Chemistry Sodium (134 - 147 mEq/L) 138 Potassium (3.4 - 5.0 mEq/L) 5.6 H Chloride (100 - 108 mEq/L) 112 H Carbon Dioxide (21 - 33 mEq/l) 19 L Anion Gap (0 - 20) 13 BUN (7 - 18 mg/dL) 70 H Creatinine (0.6 - 1.3 mg/dL) 2.1 H Glomerular Filtr Rate (90 - 95) 35.8 L Glucose (70 - 110 mg/dL) 217 H POC Glucose (70 - 110 MG/DL) 231 H 226 H 190 H Calcium (8.0 - 10.5 mg/dL) 7.8 L Phosphorus (2.5 - 4.9 MG/DL) 5.2 H Magnesium (1.80 - 2.40 mg/dL) 2.22 Hematology WBC (4.5 - 11.0 x10 3/uL) 11.8 H RBC (4.00 - 5.60 x10 6/uL) 2.74 L Hgb (12.5 - 16.9 g/dL) 7.8 L Hct (37.5 - 50.7 %) 25.4 L MCV (81.0 - 99.0 fL) 92.7 MCH (27.0 - 33.0 pg) 28.5 MCHC (33.0 - 37.0 g/dL) 30.7 L RDW (11.5 - 14.5 %) 16.1 H Plt Count (150 - 400 x10 3/uL) 300 MPV (7.0 - 9.0 fL) 9.4 H Neut % (Auto) (56.0 - 77.0 %) 84.8 H Lymph % (Auto) (14.0 - 32.0 %) 9.6 L Boundary % (Auto) (4.8 - 9.0 %) 4.5 L Eos % (Auto) (0.3 - 3.7 %) 0.1 L Baso % (Auto) (0.0 - 2.0 %) 0.1 Neut # (Auto) (2.0 - 7.6 x10 3/uL) 10.02 H Lymph # (Auto) (1.0 - 3.8 x10 3/uL) 1.13 Boundary # (Auto) (0.1 - 0.8 x10 3/uL) 0.53 Eos # (Auto) (0.0 - 0.2 x10 3/uL) 0.01 Baso # (Auto) (0.0 - 0.2 x10 3/uL) 0.01 Abs Immat Gran (auto) (0.00 - 0.03 x10 3/uL) 0. 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 Leroy Significant impairment in self-care, ADLs and fu nctional mobility Impaired mobility and gait Acute postoperative pain right BKA Diabetic polyneuropathy DKA, DM 2, poorly controlled, A1c greater than 1 4 PAD MRSA bacteremia/sepsis-treated on acute ERIKA Severe hyponatremia-resolved HTN Acute on chronic anemia requiring multiple trans fusions, possible GI bleed Left calf hematoma Edema and clinical arthritis left ankle Early decubitus to left heel/DTI dorsal left mid foot Prostatic abscess 08/26: S/p transrectal ultrasound aspiration of ab scess and transurethral resection of prostate and unroofing of abscess 09/12: Echo: EF 55-59%, grade 1 diastolic dysfunc tion 09/02: JIMENA negative for vegetation MRSA OF NARES 09/08:s/p EGD and colonoscopy. EGD showed mild ga stritis. Colonoscopy showed rectal polyp that was resect ed by snare (tubular adenoma)-repeat colonoscopy in 5 years Plan: -PLOF: Independent with transfers and gait -Amputee rehab program -Continue PT and OT -15/12 rehabilitation nursing care. -Case management for safe discharge planning. -Decubitus prevention -Early decubitus to left heel/DTI dorsal left mi dfoot-zinc oxide to the foot, foam, offloading, podiatry managing -DVT prophylaxis-SCD left leg -Strict fall and safety precautions -Work on bed mobility, transfer training, ADLs, pre-gait and gait exercises -Increase endurance and strength -Monitor pain with therapies -OOB to chair -Monitor p.o. intake and nutrition, albumin 1.3, 1.8, prealbumin less than 5, 16.7 dietary consultation, protein supplements t o promote healing -Diabetes-A1c 14, tight glycemia control- endocr ine on board, insulin adjustments -Endocrinology, ID, podiatry, cardiology, IM con sulted -Pain management adjusting pain medications -Anemia, patient required multiple units of PRBC s on acute, FOBT positive -IV Protonix-consult GI-seri al H H-no evidence of gross bleeding-discussed with Dr. Trinidad -Constipation-abdominal qguqqrmq-IPM-wdpxtr-CW S enokot and MiraLAX, DSP -MRSA OF NARES on Bactroban protocol -LLE edema-venous Doppler wi th complex heterogeneous hypoechoic fluid collection in the left calf region measuring 8.4, 2.8, 2.5 cm suggestive of hematoma. On low-dose Lasix. Oralia wrap LLE -LE edema could be related to hypoalbuminemia le ading to third spacing-edema improving -Generalized edema-some shor tness of breath and abdominal distention-cardiology gave a dose of IV Lasix-monitor urine output, da jaz weights-SOB resolved -09/05-venous Doppler of LLE-negative for DVT-Oralia wrap dressing and elevation -Anemia-hemoglobin 8.3, 7.7, 8.2, 7.6, 8, 7.7 transfused 2 units of PRBC on 09/05 -09/08: s/p EGD and colonoscopy. EGD showed mild gastritis. Colonoscopy showed rectal polyp that was resected by snare. Anemia likely secondary to chronic kidney disease. Consult renal. -Pathology of polyp came back as tubular adenoma . recommend repeating colonoscopy in 5 years as per GI -Renal ultrasound negative -MRSA bacteremia and prostatic abscess-W BC 12-monitor on Merrem and Daptomycin til 09/24 as per ID -Lasix as per nephrology -Completed Solu-Medrol on prednisone -09/12: Echo-EF 55-60%, indet erminate diastolic function parameters as per cardio -BP elevated. continue to adjust meds -BS better but likely to inc rease with re-initiation of steroids x3 days started by Nephrology for AIN -Endo adjusting insulin -Car transfer training 09/23 -Labs reviewed-hemoglobin st able at 7.8-GI recommends decrease checking H H and video capsule endoscopy as outpatient -09/23/2022 laboratory this mo rning showed sodium 138, potassium 5.6 we will give Kayexalate 30 g p.o. x2 doses, CO2 19 trending d own, will start sodium bicarbonate 1 p.o. twice cody ly, BUN 70, creatinine 2.1, if creatinine continues to be elevated, will schedul e kidney biopsy, hemoglobin 7.8, platelet 306, blood count 11.8-as per renal -Nutritional indices improved -Right SCL-mhenitj-rpzoalds resolved, dressings changed today-no bleeding after heparin discontinued, SCD to left leg -Advance therapies as tolerated-discusse d treatment plan with patient and -Patient progressing with therapies and is contact-guard assist with transfers for control and safety, wheelchair mobility 40 f eet modified independent. -Patient may need kidney biopsy as per renal -If patient's kidney function are not improving tomorrow, renal suggest transferring to medicine since he will need shantel quiros biopsy. If kidney function significantly better tomorrow, he can go home an d follow-up as outpatient. Discussed with renal. Progress: PERFORMING MOVEO AT 8% INCLINE PERFORM ING 2 MIN SQUATS X 4 HAVING GOOD CONTROL UNTIL ABOUT 45-15 SEC LEFT IN SET HAVING LIMITED ENDURANCE. PERFORMING SIT TO STANDS IN // BARS X 5 WITH SBA, NEEDING CUES TO TAKE HIS TIME, REST BETWEEN ATTEMPTS D/T LIMITED ENDURANCE. ATTEMPTING HEEL RAISES IN // BARS 3 X 10-15 WITH LIMITED HEEL LIFT OFF AT T HIS TIME. PM R Please see team note. Plan and goals discussed with the patient. I agree with the teams finding ELOS- [09/24] on IV antibiotics until 09/24 if medic ally cleared DC-Home with -Home health DME-sliding board, wheelchair, drop arm bedside commode-DME to be delivered tomorrow Total time 34 minutes greater than 50% of the ti me spent examining patient, discussing with patient about BKA site healing, renal function, on steroids, medical issues, anemia, discharge plans, rehab plan of care, goals, therapies, progress, labs, medications. EMR and MAR is revi ewed. All questions answered Orders: Procedure Date/time Status OT EXERCISE 15MIN 09/23 UNK Complete OT ADL 09/23 UNK Complete Consultants: cardiology, endocrinology, hospital ist, infectious disease, podiatry Rehab attestation: Face to face exam completed. Treatment plan disc ussed with patient. Meets continued stay criteria. Agree with interdiscipl inary treatment plan. at 1448 RPT #:[id number] END OF REPORT 2022-09-23 07:17:00-00:00 [facility] ([facility]) Nephrology Progress Note REPORT#:[id number] REPORT STATUS: Signed DATE:09/23/22 TIME: 716 PATIENT: KARMA ROWLAND UNIT #: [id number] ROOM/BED: [place] [id number] : 63 AGE: 56 SEX: M ATTEND: Mj Vences MD ADM AUTHOR: Barrera Ramírez MD * ALL edits or amendments must be made on the [employer]/computer document * Subjective Chief complaint: Infected foot HPI: Patient seen and evaluated on 09/09/2022, note [facility], records reviewed and orders placed on 09/08/2022, 56-year-old male with history of diabetes mellitus type 2, hypertension and per ipheral vascular disease who was initially admitted to acute care with altered mental status and rig ht foot infection/gangrene, 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 Patient had persistent anemia requiring blood transfusion. H is fecal occult blood was positive and his creatinine was 1.2 and increase d to 1.4 today, laboratories today showed hemoglobin 8.5, platelet 231, blood count 9.1, sodium 135, potassium 4.6, CO2 22, BUN 22, creatinin e 1.4. Renal consult was requested for evaluation management of pako vated BUN and creatinine and if his decreased GFR is contributing to his anemia. Patient reports: Yes: complaints. Comments: Patient seen and evaluated, HPI no change from i nitial, feels okay. Review of Systems Constitutional: Reports: fatigue. Denies: chills, fever. Skin: Reports: swelling. Denies: abrasion, bruising. Allergy/Immun: Denies: hives, itching. Eyes: Denies: redness, discharge. ENT: Denies: ear drainage, ear ringing. Respiratory: Denies: hemoptysis, SOB. Cardiovascular: Denies: chest pain. Objective General VS/I O: Vital Signs: Date Time Temp Pulse Resp B/P B/P Pulse O2 O2 Flow FiO2 Mean Ox Delivery Rate 09/22 2310 36.6 84 16 146/74 98.0 100 Room air 09/22 1844 36.6 90 16 122/64 83.1 96 Room air 09/22 1541 37.2 85 18 127/71 89.4 96 Room air 24 hour I O ending at 0700: 09/23 0700 09/22 1900 Intake Total 240 1000 Output Total 700 Balance 240 300 Intake, Oral 240 1000 Number 0 Incontinent Voids Number Voids 0 Output, Urine 700 Output, 0 Urine/Stool Mix PATIENT WEIGHT: Weight (lb): 167 Weight (oz): 12.35 Weight (kg): 76.100 Medications Active Meds + DC'd Last 24 Hrs Amlodipine Besylate (NORVASC) 10 MG DAILY PO Prednisone (predniSONE) 50 MG C BK PO Hydralazine HCl (APRESOLINE) 100 MG Q8HR PO Insulin Glargine (Semglee) 19 UNIT BEDTIME SUBQ Insulin Human Lispro (HUMALOG) 10 UNIT AC SUBQ Meropenem (MEROPENEM) 500 MG Q8H IV (DC) Sterile Water (WATER FOR INJECTION) 10 ML Carvedilol (COREG) 25 MG C BK DIN PO Gabapentin (NEURONTIN) 100 MG Q8HR PO Oxycodone/Acetaminophen (PERCOCET 5/325MG TAB) 2 TAB Q4H PRN PRN PO Folic Acid (FOLIC ACID) 2 MG DAILY PO Multivitamins (TAB-A-MOHAN) 1 TAB DAILY PO Furosemide (LASIX 20MG INJ) 20 MG BLOOD-DOSE BET WEEN IV (CKD) Sodium Chloride (SODIUM CHLORIDE) 10 ML ASDIR IV Pantoprazole Sodium (PROTONIX) 40 MG Q12HR IV Polyethylene Glycol (MIRALAX) 17 GM DAILY PO Sennosides (Senna Lax 8.6 MG TABLET) 8.6 MG MADALYN Y PO Sodium Chloride (SODIUM CHLORIDE) 10 ML ASDIR NV N IV Amitriptyline HCl (ELAVIL) 25 MG BEDTIME PO Zinc Oxide (ZINC OXIDE 30 GM OINTMENT) 1 APPLIC DAILY TOPICAL Sterile Water (WATER FOR IRRIGATION) DRESSING CH GELACIO ASDIR PRN IRR Insulin Human Lispro (HUMALOG) 0 AC HS SUBQ Dextrose/Water (DEXTROSE 10% IN WATER) 125 ML DIR PRN IV (CKD) Dextrose/Water (DEXTROSE 10% IN WATER) 250 ML DIR PRN IV (CKD) Glucagon (GLUCAGON) 1 MG ASDIR PRN IM Lidocaine (LIDODERM) 1 PATCH DAILY TOPICAL Acetaminophen (TYLENOL) 650 MG Q6H PRN PRN PO Bisacodyl (DULCOLAX) 10 MG DAILY PRN PRN RECTAL Docusate Sodium (COLACE) 100 MG Q12H PRN PRN PO Hydralazine HCl (APRESOLINE) 10 MG Q6H PRN PRN I V Ondansetron HCl (ZOFRAN) 4 MG Q6H PRN PRN IV Physical Exam General appearance: alert, no acute distress Head/eyes: atraumatic, normocephalic ENT: normal nose Neck: non-tender, supple/no meningismus Cardiovascular: normal heart sounds, no rub Respiratory: aerating well, symmetric expansion Abdomen: non-tender, soft Genitourinary: no flank pain Extremities: non-tender, no edema Musculoskeletal: no CVA tenderness, no tendernes s 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, 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 Considered stroke alert: no Skin: dry, intact Results Findings/Data: Laboratory Tests 09/23 09/23 09/22 09/22 09/22 0516 0331 1841 1537 1057 Chemistry POC Glucose (70 - 110 MG/DL) 226 H 190 H 156 H 118 H 170 H 09/22 09/22 09/22 09/21 09/21 0617 0436 0436 2047 1552 Chemistry Sodium (134 - 147 mEq/L) 138 Potassium (3.4 - 5.0 mEq/L) 5.1 H Chloride (100 - 108 mEq/L) 111 H Carbon Dioxide (21 - 33 mEq/l) 20 L Anion Gap (0 - 20) 12 BUN (7 - 18 mg/dL) 71 H Creatinine (0.6 - 1.3 mg/dL) 1.8 H Glomerular Filtr Rate (90 - 95) 43.1 L Glucose (70 - 110 mg/dL) 244 H POC Glucose (70 - 110 MG/DL) 251 H 251 H 170 H Calcium (8.0 - 10.5 mg/dL) 7.3 L Phosphorus (2.5 - 4.9 MG/DL) 5.0 H Magnesium (1.80 - 2.40 mg/dL) 2.13 Total Creatine Kinase (46 - 171 Units/L) 27 L B-Natriuretic Peptide (0 - 100 PG/ML) 251.0 H Albumin (3.4 - 5.0 g/dL) 1.80 L Prealbumin (16.0 - 40.0 mg/dL) 16.7 09/21 09/21 09/21 09/21 09/20 1437 1107 0530 0500 1958 Chemistry Sodium (134 - 147 mEq/L) 137 Potassium (3.4 - 5.0 mEq/L) 4.6 Chloride (100 - 108 mEq/L) 107 Carbon Dioxide (21 - 33 mEq/l) 22 Anion Gap (0 - 20) 13 BUN (7 - 18 mg/dL) 75 H Creatinine (0.6 - 1.3 mg/dL) 1.9 H Glomerular Filtr Rate (90 - 95) 40.4 L Glucose (70 - 110 mg/dL) 148 H POC Glucose (70 - 110 MG/DL) 167 H 162 H 155 H 239 H Calcium (8.0 - 10.5 mg/dL) 7.5 L Phosphorus (2.5 - 4.9 MG/DL) 5.0 H Magnesium (1.80 - 2.40 mg/dL) 2.06 09/20 09/20 09/20 1555 1140 0922 Chemistry POC Glucose (70 - 110 MG/DL) 159 H 155 H 299 H Laboratory Tests 09/23 09/22 09/21 0501 0436 0500 Hematology WBC (4.5 - 11.0 x10 3/uL) 11.8 H 12.0 H 13.0 H RBC (4.00 - 5.60 x10 6/uL) 2.74 L 2.65 L 2.69 L Hgb (12.5 - 16.9 g/dL) 7.8 L 7.7 L 7.6 L Hct (37.5 - 50.7 %) 25.4 L 24.2 L 23.9 L MCV (81.0 - 99.0 fL) 92.7 91.3 88.8 MCH (27.0 - 33.0 pg) 28.5 29.1 28.3 MCHC (33.0 - 37.0 g/dL) 30.7 L 31.8 L 31.8 L RDW (11.5 - 14.5 %) 16.1 H 16.0 H 15.7 H Plt Count (150 - 400 x10 3/uL) 300 305 296 MPV (7.0 - 9.0 fL) 9.4 H 9.5 H 9.8 H Neut % (Auto) (56.0 - 77.0 %) 84.8 H 81.7 H 82. 2 H Lymph % (Auto) (14.0 - 32.0 %) 9.6 L 11.3 L 11. 3 L Boundary % (Auto) (4.8 - 9.0 %) 4.5 L 5.7 5.3 Eos % (Auto) (0.3 - 3.7 %) 0.1 L 0.2 L 0.2 L Baso % (Auto) (0.0 - 2.0 %) 0.1 0.0 0.1 Neut # (Auto) (2.0 - 7.6 x10 3/uL) 10.02 H 9.79 H 10.70 H Lymph # (Auto) (1.0 - 3.8 x10 3/uL) 1.13 1.35 1 .47 Boundary # (Auto) (0.1 - 0.8 x10 3/uL) 0.53 0.68 0. 69 Eos # (Auto) (0.0 - 0.2 x10 3/uL) 0.01 0.02 0.0 3 Baso # (Auto) (0.0 - 0.2 x10 3/uL) 0.01 0.00 0. 01 Abs Immat Gran (auto) (0.00 - 0.03 x10 3/uL) 0. 11 H 0.13 H 0.12 H Add Manual Diff NO NO NO Immature Gran % (0.0 - 2.0 %) 0.9 1.1 0.9 Nucleated RBC % (0 - 0 %) 0.0 0.0 0.0 Nucleated RBCs # (Man) (0.0 - 0.1 x10 3/uL) 0.0 0 0.00 0.00 Laboratory Tests 09/23 09/23 09/22 09/22 09/22 0516 0331 1841 1537 1057 Chemistry POC Glucose (70 - 110 MG/DL) 226 H 190 H 156 H 118 H 170 H Laboratory Tests 09/23 0501 Hematology WBC (4.5 - 11.0 x10 3/uL) 11.8 H RBC (4.00 - 5.60 x10 6/uL) 2.74 L Hgb (12.5 - 16.9 g/dL) 7.8 L Hct (37.5 - 50.7 %) 25.4 L MCV (81.0 - 99.0 fL) 92.7 MCH (27.0 - 33.0 pg) 28.5 MCHC (33.0 - 37.0 g/dL) 30.7 L RDW (11.5 - 14.5 %) 16.1 H Plt Count (150 - 400 x10 3/uL) 300 MPV (7.0 - 9.0 fL) 9.4 H Neut % (Auto) (56.0 - 77.0 %) 84.8 H Lymph % (Auto) (14.0 - 32.0 %) 9.6 L Boundary % (Auto) (4.8 - 9.0 %) 4.5 L Eos % (Auto) (0.3 - 3.7 %) 0.1 L Baso % (Auto) (0.0 - 2.0 %) 0.1 Neut # (Auto) (2.0 - 7.6 x10 3/uL) 10.02 H Lymph # (Auto) (1.0 - 3.8 x10 3/uL) 1.13 Boundary # (Auto) (0.1 - 0.8 x10 3/uL) 0.53 Eos # (Auto) (0.0 - 0.2 x10 3/uL) 0.01 Baso # (Auto) (0.0 - 0.2 x10 3/uL) 0.01 Abs Immat Gran (auto) (0.00 - 0.03 x10 3/uL) 0. 11 H Add Manual Diff NO Immature Gran % (0.0 - 2.0 %) 0.9 Nucleated RBC % (0 - 0 %) 0.0 Nucleated RBCs # (Man) (0.0 - 0.1 x10 3/uL) 0.0 0 Diagnosis, Assessment Plan Free Text A P: Patient seen and evaluated, discussed with care team, images and laboratories reviewed. Diabetes mellitus: Insulin: Monitor bloo d sugar closely and adjust medications as needed, followed by endocrinology. Hypertension: Blood pressure is not well controlled, increase Coreg to 12.5 mg p.o. 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 We will check serum immu nofixation. Acute kidney injury: We will check renal bladder ultrasound, check postvoid residual, check urine protein creatinine ratio Hypomagnesemia: We will supplement 09/10/2022 laboratory this mo rning showed sodium 135, potassium 4.2, CO2 21, BUN 25, creatinine 1.9 continues to worsen, etiology unclear, however his development some eosinophili a not sure if he is developing AIN, suggest changing cefepime to a different class of antibiotic if p ossible, will check renal bladder ultrasound 09/11/2022 laboratory this mo rning showed sodium 134, potassium 4.3, CO2 22, BUN 26, creatinine 2 up from 1.9, hopefully creatini ne is plateauing, renal ultrasound negative. 09/12/2022 laboratory this mo rning showed sodium 134, potassium 4.2, CO2 20, BUN 31, creatinine 2.4 continues to worsen, discussed with ID, AIN is probably the etiology of the unexplained deterioration of his renal function, antibiotics to be adjusted by infectious disease, will give Solu-Medrol 125 mg IV daily for 3 days. Significant lower extremity edema, will st art Lasix 20 mg p.o. twice daily. 09.13.22: pt was seen and examined. Very thirsty. serum creatinine is worsening today. Vancomycin was stopped yesterday and Solu medrol was started. Mild hypovolemic hyponatremia. Will DC lasix and monitor his renal functions. BP is well controlled. 23: pt was seen and exa mined. Feels better but still thirsty. I stopped his lasix. will start NS at 75 c c for one Leter only. serum creatinine is improving. Received three doses of Solu Medrol a well. BP i s on the higher side, likely secondary to steroids. will monitor for now. mild hypovelmic hyponatremia. also could be secondary to hyperglycemia. 09/15/2022 we will give additional dose of Solu-M edrol 125 mg IV today, laboratory this morning show ed sodium 132, potassium 4.7, CO2 17, chloride 105, BUN 38, creatinine 2.9, glucose 312, hem oglobin 8.2, platelet 341, blood count 8.7, needs better blood sugar control, if creati nine does not start improving the next couple days will plan for kidney biopsy 09/16/2022 laboratory this mo rning showed sodium 135, potassium 4.5, CO2 20, BUN 60, creatinine 2.7, better down from 2.9, hemogl obin 7.6, platelet 360, blood count 9.5, will give prednisone 80 mg p.o. today , blood pressure is elevated, will add hydralazine 25 mg p .o. 3 times daily, scrotal and LE swelling will give Lasix 40 mg IV x 3 09/17/2022 blood pressure sti ll elevated, will increase hydralazine to 50 mg p.o. 3 times daily, will give 80 mg of prednisone today, urine output with Lasix 4125 , laboratory this morning showed sodium 136, pot assium 4.5, CO2 21, BUN 66, creatinine 2.4 down from 2.7, will give 3 more doses of IV Lasix 40 mg every 8 hours 09/18/2022 laboratory this mo rning showed sodium 138, potassium 4.1, CO2 21, BUN 66, creatinine 2.2 continues to improve, urine o utput 2.7 L, hemoglobin 7.6, platelet 341, blood count 10.6, will give Lasix 40 mg IV every 8 for 3 doses, start prednisone 60 mg p.o. daily for 3 days, increase hydralazine to 75 mg p.o. 3 times daily. 09/19/2022 blood pressure better, sodium 139, pot assium 3.8, CO2 22, BUN 72 up from 66, creatinine 2.3 up from 2.2, will hold o ff diuretics, urine output reported 2 L, magnesium 1.69 we will give magnesium sulfate 2 g IV x1, continue prednisone. 09/20/2022 laboratory this mo rning showed sodium 136, potassium 4.2, CO2 21, BUN 76, creatinine 2.2 down from 2.3, hemoglobin 7.6, platelet 302, blood count 12.3 , continue off diuretics 09/21/2022 blood pressure sti ll elevated will increase hydralazine to 100 mg p.o. 3 times daily, hemoglobin 7.6, platelet 296, blo od count 13, urine output reported 3025, will start prednisone 50 mg p.o. daily for 3 days, sodium 137, potassium 4.6, CO2 22, BUN 75, creatinine 1.9 do wn from 2.2 continues to improve. 09/22/2022 laboratory this morning showed sodium 138, potassium 5.1, CO2 20, BUN 71, creatinine 1.8 down from 1.9 continues to im prove, continue prednisone, hemoglobin 7.7, platelet 305 , blood count 12, blood pressure still elevated will add Norvasc 10 mg p.o. daily. 09/23/2022 laboratory this morning showed sodium 138, potassium 5.6 we will give Kayexalate 30 g p.o. x2 doses, CO2 19 trending d own, will start sodium bicarbonate 1 p.o. twice cody ly, BUN 70, creatinine 2.1, if creatinine continues to be elevated, will schedul e kidney biopsy, hemoglobin 7.8, platelet 306, blood count 11.8 Consultants: cardiology, endocrinology, [facility] is, infectious disease, podiatry Electronically Signed by Barrera Ramírez MD on at 0930 RPT #:[id number] END OF REPORT 2022-09-22 20:43:00-00:00 [facility] Podiatry Progress Note REPORT#:[id number] REPORT STATUS: Signed DATE:09/22/22 TIME: 2042 PATIENT: KARMA ROWLAND UNIT #: [id number] ROOM/BED: [place] [id number] : 63 AGE: 56 SEX: M ATTEND: Fredy Vences MD ADM AUTHOR: Liam PedersenM * ALL edits or amendments must be made on the [employer] document * Subjective Chief complaint: left heel ulcer. left ankle pain Patient reports: no confusion, no constipation, no dizziness, no headache, no itching Objective General VS: Last Documented: Result Date Time Pulse Ox 96 09/23 1843 B/P 122/64 09/23 1843 B/P Mean 83.1 09/23 1843 O2 Delivery Room air 09/23 1843 Temp 36.6 09/23 1843 Pulse 90 09/23 1843 Resp 16 09/23 1843 O2 Flow Rate 2 09/08 1322 PATIENT WEIGHT: Weight (lb): 167 Weight (oz): 12.35 Weight (kg): 76.100 Medications: Active Meds + DC'd Last 24 Hrs Amlodipine Besylate (NORVASC) 10 MG DAILY PO Prednisone (predniSONE) 50 MG C BK PO Hydralazine HCl (APRESOLINE) 100 MG Q8HR PO Insulin Glargine (Semglee) 19 UNIT BEDTIME SUBQ Insulin Human Lispro (HUMALOG) 10 UNIT AC SUBQ Meropenem (MEROPENEM) 500 MG Q8H IV (DC) Sterile Water (WATER FOR INJECTION) 10 ML Carvedilol (COREG) 25 MG C BK DIN PO Gabapentin (NEURONTIN) 100 MG Q8HR PO Oxycodone/Acetaminophen (PERCOCET 5/325MG TAB) 2 TAB Q4H PRN PRN PO Folic Acid (FOLIC ACID) 2 MG DAILY PO Multivitamins (TAB-A-MOHAN) 1 TAB DAILY PO Furosemide (LASIX 20MG INJ) 20 MG BLOOD-DOSE BET WEEN IV (CKD) Sodium Chloride (SODIUM CHLORIDE) 10 ML ASDIR IV Pantoprazole Sodium (PROTONIX) 40 MG Q12HR IV Polyethylene Glycol (MIRALAX) 17 GM DAILY PO Sennosides (Senna Lax 8.6 MG TABLET) 8.6 MG MADALYN Y PO Sodium Chloride (SODIUM CHLORIDE) 10 ML ASDIR NV N IV Amitriptyline HCl (ELAVIL) 25 MG BEDTIME PO Zinc Oxide (ZINC OXIDE 30 GM OINTMENT) 1 APPLIC DAILY TOPICAL Sterile Water (WATER FOR IRRIGATION) DRESSING CH GELACIO ASDIR PRN IRR Insulin Human Lispro (HUMALOG) 0 AC HS SUBQ Dextrose/Water (DEXTROSE 10% IN WATER) 125 ML DIR PRN IV (CKD) Dextrose/Water (DEXTROSE 10% IN WATER) 250 ML DIR PRN IV (CKD) Glucagon (GLUCAGON) 1 MG ASDIR PRN IM Lidocaine (LIDODERM) 1 PATCH DAILY TOPICAL Acetaminophen (TYLENOL) 650 MG Q6H PRN PRN PO Bisacodyl (DULCOLAX) 10 MG DAILY PRN PRN RECTAL Docusate Sodium (COLACE) 100 MG Q12H PRN PRN PO Hydralazine HCl (APRESOLINE) 10 MG Q6H PRN PRN I V Ondansetron HCl (ZOFRAN) 4 MG Q6H PRN PRN IV I O: 24 hour I O ending at 0700: 09/22 0700 09/21 1900 Intake Total Output Total 2100 Balance -2100 Number 1 Bowel Movements Number 0 Incontinent Voids Number Voids 0 Output, Urine 2100 Dietitian nutrition assessment The data set between the solid lines has been im ported from the dietitian's assessment. BMI Calculated: 27.1 Nutrition related diagnosis: Nutrition diagnosis details: Nutrition problem: Altered nutrition labs Nutrition etiology: DM Nutrition signs and symptoms: HYPER/HYPOGLYCEMIA , A1C >14 Nutrition prescription: CONTINUE RENAL DM DIET Dietitian name: You Palmer, DIET Assessment completed: 09/18/22 Physical Exam General appearance: alert, awake, oriented, plea delia, no respiratory distress Wound/incision: Location: left foot Site condition: dp/pt 2/4 left. light touch dec reased left foot. ulcer starting at posterior left heel. eccymosis noted . early likely stage 1. left ankle has edema. pain with aggressive ROM left a nkle. dorsal left midfoot is starting to have tissue injury LE vascular pulse assess: 2+ L posterior tibialis, 2+ L dorsalis pedis Considered stroke alert: no Ulcer: Location: DTI dorsal left midfoot Results Findings/Data: Laboratory Tests: 09/22 09/22 09/22 09/22 09/22 1841 1537 1057 0617 0436 Chemistry POC Glucose (70 - 110 MG/DL) 156 H 118 H 170 H 251 H B-Natriuretic Peptide (0 - 100 251.0 H PG/ML) 09/22 09/21 0436 2047 Chemistry Sodium (134 - 147 mEq/L) 138 Potassium (3.4 - 5.0 mEq/L) 5.1 H Chloride (100 - 108 mEq/L) 111 H Carbon Dioxide (21 - 33 mEq/l) 20 L Anion Gap (0 - 20) 12 BUN (7 - 18 mg/dL) 71 H Creatinine (0.6 - 1.3 mg/dL) 1.8 H Glomerular Filtr Rate (90 - 95) 43.1 L Glucose (70 - 110 mg/dL) 244 H POC Glucose (70 - 110 MG/DL) 251 H Calcium (8.0 - 10.5 mg/dL) 7.3 L Phosphorus (2.5 - 4.9 MG/DL) 5.0 H Magnesium (1.80 - 2.40 mg/dL) 2.13 Total Creatine Kinase (46 - 171 Units/L) 27 L Albumin (3.4 - 5.0 g/dL) 1.80 L Prealbumin (16.0 - 40.0 mg/dL) 16.7 Hematology WBC (4.5 - 11.0 x10 3/uL) 12.0 H RBC (4.00 - 5.60 x10 6/uL) 2.65 L Hgb (12.5 - 16.9 g/dL) 7.7 L Hct (37.5 - 50.7 %) 24.2 L MCV (81.0 - 99.0 fL) 91.3 MCH (27.0 - 33.0 pg) 29.1 MCHC (33.0 - 37.0 g/dL) 31.8 L RDW (11.5 - 14.5 %) 16.0 H Plt Count (150 - 400 x10 3/uL) 305 MPV (7.0 - 9.0 fL) 9.5 H Neut % (Auto) (56.0 - 77.0 %) 81.7 H Lymph % (Auto) (14.0 - 32.0 %) 11.3 L Boundary % (Auto) (4.8 - 9.0 %) 5.7 Eos % (Auto) (0.3 - 3.7 %) 0.2 L Baso % (Auto) (0.0 - 2.0 %) 0.0 Neut # (Auto) (2.0 - 7.6 x10 3/uL) 9.79 H Lymph # (Auto) (1.0 - 3.8 x10 3/uL) 1.35 Boundary # (Auto) (0.1 - 0.8 x10 3/uL) 0.68 Eos # (Auto) (0.0 - 0.2 x10 3/uL) 0.02 Baso # (Auto) (0.0 - 0.2 x10 3/uL) 0.00 Abs Immat Gran (auto) (0.00 - 0.03 x10 3/uL) 0. 13 H Add Manual Diff NO Immature Gran % (0.0 - 2.0 %) 1.1 Nucleated RBC % (0 - 0 %) 0.0 Nucleated RBCs # (Man) (0.0 - 0.1 x10 3/uL) 0.0 0 Diagnosis, Assessment Plan Free Text A P: DM with neuropathy early decub ulcer left heel OA/edema left ankle early ulcer/DTI dorsal left midfoot zinc oxide to foot and heel foam to heel on IV abx on PO gabapentin offloading boot oralia wraps to ankle, only when OOB with therapy. zinc oxide interchange with bactroban to dorsal left foot Consultants: cardiology, endocrinology, hospital ist, infectious disease, podiatry Electronically Signed by Liam Pedersen DPM on 0 09/22/22 at 6 RPT #:[id number] END OF REPORT 2022-09-22 17:39:00-00:00 [facility] ([facility]) Endocrinology Progress Note REPORT#:[id number] REPORT STATUS: Signed DATE:09/22/22 TIME: 1731 PATIENT: KARMA ROWLAND UNIT #: [id number] ROOM/BED: [place] [address] : 61 AGE: 56 SEX: M ATTEND: Fredy Vences MD ADM AUTHOR: Braxton Chapin MD * ALL edits or amendments must be made on the [employer] document * Subjective Patient reports: no complaints Objective General VS: Last Documented: Result Date Time Pulse Ox 96 09/22 1541 B/P 127/71 09/22 1541 B/P Mean 89.4 09/22 1541 O2 Delivery Room air 09/22 1541 Temp 37.2 09/22 1541 Pulse 85 09/22 1541 Resp 18 09/22 1541 O2 Flow Rate 2 09/08 1322 PATIENT WEIGHT: Weight (lb): 167 Weight (oz): 12.35 Weight (kg): 76.100 Medications: Active Meds + DC'd Last 24 Hrs Amlodipine Besylate (NORVASC) 10 MG DAILY PO Prednisone (predniSONE) 50 MG C BK PO Hydralazine HCl (APRESOLINE) 100 MG Q8HR PO Insulin Glargine (Semglee) 19 UNIT BEDTIME SUBQ Insulin Human Lispro (HUMALOG) 10 UNIT AC SUBQ Meropenem (MEROPENEM) 500 MG Q8H IV (DC) Sterile Water (WATER FOR INJECTION) 10 ML Carvedilol (COREG) 25 MG C BK DIN PO Gabapentin (NEURONTIN) 100 MG Q8HR PO Oxycodone/Acetaminophen (PERCOCET 5/325MG TAB) 2 TAB Q4H PRN PRN PO Folic Acid (FOLIC ACID) 2 MG DAILY PO Multivitamins (TAB-A-MOHAN) 1 TAB DAILY PO Furosemide (LASIX 20MG INJ) 20 MG BLOOD-DOSE BET WEEN IV (CKD) Sodium Chloride (SODIUM CHLORIDE) 10 ML ASDIR IV Pantoprazole Sodium (PROTONIX) 40 MG Q12HR IV Polyethylene Glycol (MIRALAX) 17 GM DAILY PO Sennosides (Senna Lax 8.6 MG TABLET) 8.6 MG MADALYN Y PO Sodium Chloride (SODIUM CHLORIDE) 10 ML ASDIR NV N IV Amitriptyline HCl (ELAVIL) 25 MG BEDTIME PO Zinc Oxide (ZINC OXIDE 30 GM OINTMENT) 1 APPLIC DAILY TOPICAL Sterile Water (WATER FOR IRRIGATION) DRESSING CH GELACIO ASDIR PRN IRR Insulin Human Lispro (HUMALOG) 0 AC HS SUBQ Dextrose/Water (DEXTROSE 10% IN WATER) 125 ML DIR PRN IV (CKD) Dextrose/Water (DEXTROSE 10% IN WATER) 250 ML DIR PRN IV (CKD) Glucagon (GLUCAGON) 1 MG ASDIR PRN IM Lidocaine (LIDODERM) 1 PATCH DAILY TOPICAL Acetaminophen (TYLENOL) 650 MG Q6H PRN PRN PO Bisacodyl (DULCOLAX) 10 MG DAILY PRN PRN RECTAL Docusate Sodium (COLACE) 100 MG Q12H PRN PRN PO Hydralazine HCl (APRESOLINE) 10 MG Q6H PRN PRN I V Ondansetron HCl (ZOFRAN) 4 MG Q6H PRN PRN IV Physical Exam General appearance: alert, awake Diagnosis, Assessment Plan Hospital course to date: Laboratory Tests: 09/22 09/22 09/22 09/22 1537 1057 0617 0436 Chemistry POC Glucose (70 - 110 MG/DL) 118 H 170 H 251 H B-Natriuretic Peptide (0 - 100 PG/ML) 251.0 H 09/22 09/21 0436 2047 Chemistry Sodium (134 - 147 mEq/L) 138 Potassium (3.4 - 5.0 mEq/L) 5.1 H Chloride (100 - 108 mEq/L) 111 H Carbon Dioxide (21 - 33 mEq/l) 20 L Anion Gap (0 - 20) 12 BUN (7 - 18 mg/dL) 71 H Creatinine (0.6 - 1.3 mg/dL) 1.8 H Glomerular Filtr Rate (90 - 95) 43.1 L Glucose (70 - 110 mg/dL) 244 H POC Glucose (70 - 110 MG/DL) 251 H Calcium (8.0 - 10.5 mg/dL) 7.3 L Phosphorus (2.5 - 4.9 MG/DL) 5.0 H Magnesium (1.80 - 2.40 mg/dL) 2.13 Total Creatine Kinase (46 - 171 Units/L) 27 L Albumin (3.4 - 5.0 g/dL) 1.80 L Prealbumin (16.0 - 40.0 mg/dL) 16.7 Hematology WBC (4.5 - 11.0 x10 3/uL) 12.0 H RBC (4.00 - 5.60 x10 6/uL) 2.65 L Hgb (12.5 - 16.9 g/dL) 7.7 L Hct (37.5 - 50.7 %) 24.2 L MCV (81.0 - 99.0 fL) 91.3 MCH (27.0 - 33.0 pg) 29.1 MCHC (33.0 - 37.0 g/dL) 31.8 L RDW (11.5 - 14.5 %) 16.0 H Plt Count (150 - 400 x10 3/uL) 305 MPV (7.0 - 9.0 fL) 9.5 H Neut % (Auto) (56.0 - 77.0 %) 81.7 H Lymph % (Auto) (14.0 - 32.0 %) 11.3 L Boundary % (Auto) (4.8 - 9.0 %) 5.7 Eos % (Auto) (0.3 - 3.7 %) 0.2 L Baso % (Auto) (0.0 - 2.0 %) 0.0 Neut # (Auto) (2.0 - 7.6 x10 3/uL) 9.79 H Lymph # (Auto) (1.0 - 3.8 x10 3/uL) 1.35 Boundary # (Auto) (0.1 - 0.8 x10 3/uL) 0.68 Eos # (Auto) (0.0 - 0.2 x10 3/uL) 0.02 Baso # (Auto) (0.0 - 0.2 x10 3/uL) 0.00 Abs Immat Gran (auto) (0.00 - 0.03 x10 3/uL) 0. 13 H Add Manual Diff NO Immature Gran % (0.0 - 2.0 %) 1.1 Nucleated RBC % (0 - 0 %) 0.0 Nucleated RBCs # (Man) (0.0 - 0.1 x10 3/uL) 0.0 0 Laboratory Tests: 09/21 09/21 09/21 09/21 09/21 1552 1437 1107 0530 0500 Chemistry Sodium (134 - 147 mEq/L) 137 Potassium (3.4 - 5.0 mEq/L) 4.6 Chloride (100 - 108 mEq/L) 107 Carbon Dioxide (21 - 33 mEq/l) 22 Anion Gap (0 - 20) 13 BUN (7 - 18 mg/dL) 75 H Creatinine (0.6 - 1.3 mg/dL) 1.9 H Glomerular Filtr Rate (90 - 95) 40.4 L Glucose (70 - 110 mg/dL) 148 H POC Glucose (70 - 110 MG/DL) 170 H 167 H 162 H 155 H Calcium (8.0 - 10.5 mg/dL) 7.5 L Phosphorus (2.5 - 4.9 MG/DL) 5.0 H Magnesium (1.80 - 2.40 mg/dL) 2.06 Hematology WBC (4.5 - 11.0 x10 3/uL) 13.0 H RBC (4.00 - 5.60 x10 6/uL) 2.69 L Hgb (12.5 - 16.9 g/dL) 7.6 L Hct (37.5 - 50.7 %) 23.9 L MCV (81.0 - 99.0 fL) 88.8 MCH (27.0 - 33.0 pg) 28.3 MCHC (33.0 - 37.0 g/dL) 31.8 L RDW (11.5 - 14.5 %) 15.7 H Plt Count (150 - 400 x10 3/uL) 296 MPV (7.0 - 9.0 fL) 9.8 H Neut % (Auto) (56.0 - 77.0 %) 82.2 H Lymph % (Auto) (14.0 - 32.0 %) 11.3 L Boundary % (Auto) (4.8 - 9.0 %) 5.3 Eos % (Auto) (0.3 - 3.7 %) 0.2 L Baso % (Auto) (0.0 - 2.0 %) 0.1 Neut # (Auto) (2.0 - 7.6 x10 3/uL) 10.70 H Lymph # (Auto) (1.0 - 3.8 x10 3/uL) 1.47 Boundary # (Auto) (0.1 - 0.8 x10 3/uL) 0.69 Eos # (Auto) (0.0 - 0.2 x10 3/uL) 0.03 Baso # (Auto) (0.0 - 0.2 x10 3/uL) 0.01 Abs Immat Gran (auto) (0.00 - 0.03 0.12 H x10 3/uL) Add Manual Diff NO Immature Gran % (0.0 - 2.0 %) 0.9 Nucleated RBC % (0 - 0 %) 0.0 Nucleated RBCs # (Man) (0.0 - 0.1 0.00 x10 3/uL) Laboratory Tests: 09/20 09/20 09/20 09/20 09/19 1140 0922 0505 0458 1921 Chemistry Sodium (134 - 147 mEq/L) 136 Potassium (3.4 - 5.0 mEq/L) 4.2 Chloride (100 - 108 mEq/L) 107 Carbon Dioxide (21 - 33 mEq/l) 21 Anion Gap (0 - 20) 12 BUN (7 - 18 mg/dL) 76 H Creatinine (0.6 - 1.3 mg/dL) 2.2 H Glomerular Filtr Rate (90 - 95) 33.9 L Glucose (70 - 110 mg/dL) 301 H POC Glucose (70 - 110 MG/DL) 155 H 299 H 277 H 236 H Calcium (8.0 - 10.5 mg/dL) 7.4 L Phosphorus (2.5 - 4.9 MG/DL) 5.4 H Magnesium (1.80 - 2.40 mg/dL) 2.05 Hematology WBC (4.5 - 11.0 x10 3/uL) 12.3 H RBC (4.00 - 5.60 x10 6/uL) 2.66 L Hgb (12.5 - 16.9 g/dL) 7.6 L Hct (37.5 - 50.7 %) 23.9 L MCV (81.0 - 99.0 fL) 89.8 MCH (27.0 - 33.0 pg) 28.6 MCHC (33.0 - 37.0 g/dL) 31.8 L RDW (11.5 - 14.5 %) 15.3 H Plt Count (150 - 400 x10 3/uL) 302 MPV (7.0 - 9.0 fL) 9.2 H Neut % (Auto) (56.0 - 77.0 %) 79.7 H Lymph % (Auto) (14.0 - 32.0 %) 13.0 L Boundary % (Auto) (4.8 - 9.0 %) 6.2 Eos % (Auto) (0.3 - 3.7 %) 0.2 L Baso % (Auto) (0.0 - 2.0 %) 0.1 Neut # (Auto) (2.0 - 7.6 x10 3/uL) 9.84 H Lymph # (Auto) (1.0 - 3.8 x10 3/uL) 1.60 Boundary # (Auto) (0.1 - 0.8 x10 3/uL) 0.76 Eos # (Auto) (0.0 - 0.2 x10 3/uL) 0.03 Baso # (Auto) (0.0 - 0.2 x10 3/uL) 0.01 Abs Immat Gran (auto) (0.00 - 0.03 0.10 H x10 3/uL) Add Manual Diff NO Immature Gran % (0.0 - 2.0 %) 0.8 Nucleated RBC % (0 - 0 %) 0.0 Nucleated RBCs # (Man) (0.0 - 0.1 0.00 x10 3/uL) Laboratory Tests: 09/19 09/19 09/19 09/18 09/18 1133 0501 0448 2151 1933 Chemistry Sodium (134 - 147 mEq/L) 139 Potassium (3.4 - 5.0 mEq/L) 3.8 Chloride (100 - 108 mEq/L) 108 Carbon Dioxide (21 - 33 mEq/l) 22 Anion Gap (0 - 20) 13 BUN (7 - 18 mg/dL) 72 H Creatinine (0.6 - 1.3 mg/dL) 2.3 H Glomerular Filtr Rate (90 - 95) 32.1 L Glucose (70 - 110 mg/dL) 61 L POC Glucose (70 - 110 MG/DL) 96 162 H 103 70 Calcium (8.0 - 10.5 mg/dL) 7.5 L Phosphorus (2.5 - 4.9 MG/DL) 5.0 H Magnesium (1.80 - 2.40 mg/dL) 1.69 L Hematology WBC (4.5 - 11.0 x10 3/uL) 13.3 H RBC (4.00 - 5.60 x10 6/uL) 2.79 L Hgb (12.5 - 16.9 g/dL) 8.0 L Hct (37.5 - 50.7 %) 25.0 L MCV (81.0 - 99.0 fL) 89.6 MCH (27.0 - 33.0 pg) 28.7 MCHC (33.0 - 37.0 g/dL) 32.0 L RDW (11.5 - 14.5 %) 14.9 H Plt Count (150 - 400 x10 3/uL) 347 MPV (7.0 - 9.0 fL) 9.1 H Neut % (Auto) (56.0 - 77.0 %) 71.4 Lymph % (Auto) (14.0 - 32.0 %) 16.5 Boundary % (Auto) (4.8 - 9.0 %) 8.4 Eos % (Auto) (0.3 - 3.7 %) 2.4 Baso % (Auto) (0.0 - 2.0 %) 0.2 Neut # (Auto) (2.0 - 7.6 x10 3/uL) 9.50 H Lymph # (Auto) (1.0 - 3.8 x10 3/uL) 2.19 Boundary # (Auto) (0.1 - 0.8 x10 3/uL) 1.11 H Eos # (Auto) (0.0 - 0.2 x10 3/uL) 0.32 H Baso # (Auto) (0.0 - 0.2 x10 3/uL) 0.02 Abs Immat Gran (auto) (0.00 - 0.03 0.14 H x10 3/uL) Add Manual Diff NO Immature Gran % (0.0 - 2.0 %) 1.1 Nucleated RBC % (0 - 0 %) 0.0 Nucleated RBCs # (Man) (0.0 - 0.1 0.00 x10 3/uL) 09/18 1611 Chemistry POC Glucose (70 - 110 MG/DL) 118 H Laboratory Tests: 09/18 09/18 09/18 09/18 1611 1102 0906 0540 Chemistry POC Glucose (70 - 110 MG/DL) 118 H 80 171 H 203 H 09/18 09/17 0505 1904 Chemistry Sodium (134 - 147 mEq/L) 138 Potassium (3.4 - 5.0 mEq/L) 4.1 Chloride (100 - 108 mEq/L) 108 Carbon Dioxide (21 - 33 mEq/l) 21 Anion Gap (0 - 20) 13 BUN (7 - 18 mg/dL) 66 H Creatinine (0.6 - 1.3 mg/dL) 2.2 H Glomerular Filtr Rate (90 - 95) 33.9 L Glucose (70 - 110 mg/dL) 201 H POC Glucose (70 - 110 MG/DL) 160 H Calcium (8.0 - 10.5 mg/dL) 7.5 L Phosphorus (2.5 - 4.9 MG/DL) 4.4 Magnesium (1.80 - 2.40 mg/dL) 1.83 Hematology WBC (4.5 - 11.0 x10 3/uL) 10.6 RBC (4.00 - 5.60 x10 6/uL) 2.67 L Hgb (12.5 - 16.9 g/dL) 7.6 L Hct (37.5 - 50.7 %) 23.7 L MCV (81.0 - 99.0 fL) 88.8 MCH (27.0 - 33.0 pg) 28.5 MCHC (33.0 - 37.0 g/dL) 32.1 L RDW (11.5 - 14.5 %) 14.8 H Plt Count (150 - 400 x10 3/uL) 341 MPV (7.0 - 9.0 fL) 9.2 H Neut % (Auto) (56.0 - 77.0 %) 74.6 Lymph % (Auto) (14.0 - 32.0 %) 17.4 Boundary % (Auto) (4.8 - 9.0 %) 6.9 Eos % (Auto) (0.3 - 3.7 %) 0.1 L Baso % (Auto) (0.0 - 2.0 %) 0.1 Neut # (Auto) (2.0 - 7.6 x10 3/uL) 7.91 H Lymph # (Auto) (1.0 - 3.8 x10 3/uL) 1.85 Boundary # (Auto) (0.1 - 0.8 x10 3/uL) 0.73 Eos # (Auto) (0.0 - 0.2 x10 3/uL) 0.01 Baso # (Auto) (0.0 - 0.2 x10 3/uL) 0.01 Abs Immat Gran (auto) (0.00 - 0.03 x10 3/uL) 0. 10 H Add Manual Diff NO Immature Gran % (0.0 - 2.0 %) 0.9 Nucleated RBC % (0 - 0 %) 0.0 Nucleated RBCs # (Man) (0.0 - 0.1 x10 3/uL) 0.0 0 Laboratory Tests: 09/17 09/17 09/17 09/17 09/17 1554 1027 0951 0601 0451 Chemistry POC Glucose (70 - 110 MG/DL) 75 256 H 287 H 286 H 273 H 09/17 09/16 09/16 0450 2345 1931 Chemistry Sodium (134 - 147 mEq/L) 136 Potassium (3.4 - 5.0 mEq/L) 4.5 Chloride (100 - 108 mEq/L) 107 Carbon Dioxide (21 - 33 mEq/l) 21 Anion Gap (0 - 20) 12 BUN (7 - 18 mg/dL) 66 H Creatinine (0.6 - 1.3 mg/dL) 2.4 H Glomerular Filtr Rate (90 - 95) 30.5 L Glucose (70 - 110 mg/dL) 285 H POC Glucose (70 - 110 MG/DL) 291 H 219 H Calcium (8.0 - 10.5 mg/dL) 7.4 L Phosphorus (2.5 - 4.9 MG/DL) 4.5 Magnesium (1.80 - 2.40 mg/dL) 1.97 Hematology WBC (4.5 - 11.0 x10 3/uL) 8.9 RBC (4.00 - 5.60 x10 6/uL) 2.83 L Hgb (12.5 - 16.9 g/dL) 8.1 L Hct (37.5 - 50.7 %) 24.9 L MCV (81.0 - 99.0 fL) 88.0 MCH (27.0 - 33.0 pg) 28.6 MCHC (33.0 - 37.0 g/dL) 32.5 L RDW (11.5 - 14.5 %) 14.6 H Plt Count (150 - 400 x10 3/uL) 374 MPV (7.0 - 9.0 fL) 9.6 H Neut % (Auto) (56.0 - 77.0 %) 85.2 H Lymph % (Auto) (14.0 - 32.0 %) 10.2 L Boundary % (Auto) (4.8 - 9.0 %) 2.9 L Eos % (Auto) (0.3 - 3.7 %) 0.0 L Baso % (Auto) (0.0 - 2.0 %) 0.1 Neut # (Auto) (2.0 - 7.6 x10 3/uL) 7.58 Lymph # (Auto) (1.0 - 3.8 x10 3/uL) 0.91 L Boundary # (Auto) (0.1 - 0.8 x10 3/uL) 0.26 Eos # (Auto) (0.0 - 0.2 x10 3/uL) 0.00 Baso # (Auto) (0.0 - 0.2 x10 3/uL) 0.01 Abs Immat Gran (auto) (0.00 - 0.03 x10 3/uL) 0. 14 H Add Manual Diff NO Immature Gran % (0.0 - 2.0 %) 1.6 Nucleated RBC % (0 - 0 %) 0.0 Nucleated RBCs # (Man) (0.0 - 0.1 x10 3/uL) 0.0 0 Laboratory Tests: 09/16 09/16 09/16 09/16 1549 1441 1110 0553 Chemistry POC Glucose (70 - 110 MG/DL) 62 L 60 L 148 H 19 5 H 09/16 09/15 0455 1937 Chemistry Sodium (134 - 147 mEq/L) 135 Potassium (3.4 - 5.0 mEq/L) 4.5 Chloride (100 - 108 mEq/L) 108 Carbon Dioxide (21 - 33 mEq/l) 20 L Anion Gap (0 - 20) 11 BUN (7 - 18 mg/dL) 60 H Creatinine (0.6 - 1.3 mg/dL) 2.7 H Glomerular Filtr Rate (90 - 95) 26.5 L Glucose (70 - 110 mg/dL) 175 H POC Glucose (70 - 110 MG/DL) 124 H Calcium (8.0 - 10.5 mg/dL) 7.5 L Phosphorus (2.5 - 4.9 MG/DL) 4.6 Magnesium (1.80 - 2.40 mg/dL) 1.93 Hematology WBC (4.5 - 11.0 x10 3/uL) 9.5 RBC (4.00 - 5.60 x10 6/uL) 2.70 L Hgb (12.5 - 16.9 g/dL) 7.6 L Hct (37.5 - 50.7 %) 23.7 L MCV (81.0 - 99.0 fL) 87.8 MCH (27.0 - 33.0 pg) 28.1 MCHC (33.0 - 37.0 g/dL) 32.1 L RDW (11.5 - 14.5 %) 14.6 H Plt Count (150 - 400 x10 3/uL) 360 MPV (7.0 - 9.0 fL) 9.6 H Neut % (Auto) (56.0 - 77.0 %) 73.4 Lymph % (Auto) (14.0 - 32.0 %) 18.6 Boundary % (Auto) (4.8 - 9.0 %) 6.7 Eos % (Auto) (0.3 - 3.7 %) 0.2 L Baso % (Auto) (0.0 - 2.0 %) 0.1 Neut # (Auto) (2.0 - 7.6 x10 3/uL) 6.99 Lymph # (Auto) (1.0 - 3.8 x10 3/uL) 1.77 Boundary # (Auto) (0.1 - 0.8 x10 3/uL) 0.64 Eos # (Auto) (0.0 - 0.2 x10 3/uL) 0.02 Baso # (Auto) (0.0 - 0.2 x10 3/uL) 0.01 Abs Immat Gran (auto) (0.00 - 0.03 x10 3/uL) 0. 10 H Add Manual Diff NO Immature Gran % (0.0 - 2.0 %) 1.0 Nucleated RBC % (0 - 0 %) 0.0 Nucleated RBCs # (Man) (0.0 - 0.1 x10 3/uL) 0.0 0 Laboratory Tests: 09/15 09/15 09/15 09/15 1640 1304 1154 0519 Chemistry POC Glucose (70 - 110 MG/DL) 137 H 126 H 309 H Urines Urine Color (YEL/STRAW) YELLOW Urine Appearance (CLEAR) SL CLOUDY Urine pH (5.0 - 7.0) 5.0 Ur Specific [place] (1.005 - 1.030) 1.013 Urine Protein (NEGATIVE) 2+ H Urine Glucose (UA) (NEGATIVE) 2+ H Urine Ketones (NEGATIVE) NEGATIVE Urine Blood (NEGATIVE) 2+ H Urine Nitrite (NEGATIVE) NEGATIVE Urine Bilirubin (NEGATIVE) NEGATIVE Urine Urobilinogen (0.2 - 1.0 mg/dL) 0.2 Ur Leukocyte Esterase (NEGATIVE) TRACE H Urine RBC (0 - 3 RBC/HPF) 21-50 Urine WBC (0 - 3 WBC/HPF) 4-9 H Ur Squamous Epith Cells (NONE SEEN /HPF) 0-5 Ur Transition Epith Cell (NONE SEEN /HPF) TRACE Urine Bacteria (NONE SEEN /HPF) TRACE Granular Casts (NONE /LPF) 3-5 Urine Mucus (NONE SEEN /LPF) TRACE Ur Random Creatinine (mg/dL) 52.5 U Random Total Protein (mg/dL) 283 09/15 09/14 0515 1931 Chemistry Sodium (134 - 147 mEq/L) 132 L Potassium (3.4 - 5.0 mEq/L) 4.7 Chloride (100 - 108 mEq/L) 105 Carbon Dioxide (21 - 33 mEq/l) 17 L Anion Gap (0 - 20) 15 BUN (7 - 18 mg/dL) 38 H Creatinine (0.6 - 1.3 mg/dL) 2.9 H Glomerular Filtr Rate (90 - 95) 24.3 L Glucose (70 - 110 mg/dL) 312 H POC Glucose (70 - 110 MG/DL) 193 H Calcium (8.0 - 10.5 mg/dL) 7.2 L Phosphorus (2.5 - 4.9 MG/DL) 5.7 H Magnesium (1.80 - 2.40 mg/dL) 1.96 Total Creatine Kinase (46 - 171 Units/L) 26 L Albumin (3.4 - 5.0 g/dL) 1.50 L Prealbumin (16.0 - 40.0 mg/dL) 8.0 L Hematology WBC (4.5 - 11.0 x10 3/uL) 8.7 RBC (4.00 - 5.60 x10 6/uL) 2.88 L Hgb (12.5 - 16.9 g/dL) 8.2 L Hct (37.5 - 50.7 %) 26.5 L MCV (81.0 - 99.0 fL) 92.0 MCH (27.0 - 33.0 pg) 28.5 MCHC (33.0 - 37.0 g/dL) 30.9 L RDW (11.5 - 14.5 %) 14.3 Plt Count (150 - 400 x10 3/uL) 341 MPV (7.0 - 9.0 fL) 9.1 H Neut % (Auto) (56.0 - 77.0 %) 84.9 H Lymph % (Auto) (14.0 - 32.0 %) 11.3 L Boundary % (Auto) (4.8 - 9.0 %) 3.2 L Eos % (Auto) (0.3 - 3.7 %) 0.0 L Baso % (Auto) (0.0 - 2.0 %) 0.1 Neut # (Auto) (2.0 - 7.6 x10 3/uL) 7.35 Lymph # (Auto) (1.0 - 3.8 x10 3/uL) 0.98 L Boundary # (Auto) (0.1 - 0.8 x10 3/uL) 0.28 Eos # (Auto) (0.0 - 0.2 x10 3/uL) 0.00 Baso # (Auto) (0.0 - 0.2 x10 3/uL) 0.01 Abs Immat Gran (auto) (0.00 - 0.03 x10 3/uL) 0. 04 H Add Manual Diff NO Immature Gran % (0.0 - 2.0 %) 0.5 Nucleated RBC % (0 - 0 %) 0.0 Nucleated RBCs # (Man) (0.0 - 0.1 x10 3/uL) 0.0 0 Microbiology: Date/Time Procedure - Status Source Growth 09/15 0515 MRSA DNA Surveillance Screen - COMP NASAL Laboratory Tests: 09/14 09/14 09/14 09/14 09/13 1130 9214 6683 4095 4428 Chemistry Sodium (134 - 147 mEq/L) 132 L Potassium (3.4 - 5.0 mEq/L) 4.4 Chloride (100 - 108 mEq/L) 104 Carbon Dioxide (21 - 33 mEq/l) 19 L Anion Gap (0 - 20) 14 BUN (7 - 18 mg/dL) 38 H Creatinine (0.6 - 1.3 mg/dL) 2.8 H Glomerular Filtr Rate (90 - 95) 25.4 L Glucose (70 - 110 mg/dL) 325 H POC Glucose (70 - 110 MG/DL) 137 H 290 H 334 H 248 H Calcium (8.0 - 10.5 mg/dL) 7.5 L Hematology WBC (4.5 - 11.0 x10 3/uL) 9.5 RBC (4.00 - 5.60 x10 6/uL) 2.83 L Hgb (12.5 - 16.9 g/dL) 8.0 L Hct (37.5 - 50.7 %) 25.3 L MCV (81.0 - 99.0 fL) 89.4 MCH (27.0 - 33.0 pg) 28.3 MCHC (33.0 - 37.0 g/dL) 31.6 L RDW (11.5 - 14.5 %) 14.0 Plt Count (150 - 400 x10 3/uL) 322 MPV (7.0 - 9.0 fL) 9.3 H Neut % (Auto) (56.0 - 77.0 %) 80.2 H Lymph % (Auto) (14.0 - 32.0 %) 13.9 L Boundary % (Auto) (4.8 - 9.0 %) 5.1 Eos % (Auto) (0.3 - 3.7 %) 0.0 L Baso % (Auto) (0.0 - 2.0 %) 0.1 Neut # (Auto) (2.0 - 7.6 x10 3/uL) 7.58 Lymph # (Auto) (1.0 - 3.8 x10 3/uL) 1.31 Boundary # (Auto) (0.1 - 0.8 x10 3/uL) 0.48 Eos # (Auto) (0.0 - 0.2 x10 3/uL) 0.00 Baso # (Auto) (0.0 - 0.2 x10 3/uL) 0.01 Abs Immat Gran (auto) (0.00 - 0.03 0.07 H x10 3/uL) Add Manual Diff NO Immature Gran % (0.0 - 2.0 %) 0.7 Nucleated RBC % (0 - 0 %) 0.0 Nucleated RBCs # (Man) (0.0 - 0.1 0.00 x10 3/uL) 09/13 1629 Chemistry POC Glucose (70 - 110 MG/DL) 130 H Laboratory Tests: 09/13 09/13 09/13 09/12 1105 0592 0452 2016 Chemistry Sodium (134 - 147 mEq/L) 133 L Potassium (3.4 - 5.0 mEq/L) 4.6 Chloride (100 - 108 mEq/L) 107 Carbon Dioxide (21 - 33 mEq/l) 19 L Anion Gap (0 - 20) 12 BUN (7 - 18 mg/dL) 28 H Creatinine (0.6 - 1.3 mg/dL) 2.7 H Glomerular Filtr Rate (90 - 95) 26.5 L Glucose (70 - 110 mg/dL) 241 H POC Glucose (70 - 110 MG/DL) 307 H 258 H 223 H Calcium (8.0 - 10.5 mg/dL) 7.8 L Phosphorus (2.5 - 4.9 MG/DL) 4.7 Magnesium (1.80 - 2.40 mg/dL) 1.92 Hematology WBC (4.5 - 11.0 x10 3/uL) 9.8 RBC (4.00 - 5.60 x10 6/uL) 2.90 L Hgb (12.5 - 16.9 g/dL) 8.2 L Hct (37.5 - 50.7 %) 25.4 L MCV (81.0 - 99.0 fL) 87.6 MCH (27.0 - 33.0 pg) 28.3 MCHC (33.0 - 37.0 g/dL) 32.3 L RDW (11.5 - 14.5 %) 13.7 Plt Count (150 - 400 x10 3/uL) 288 MPV (7.0 - 9.0 fL) 10.0 H Neut % (Auto) (56.0 - 77.0 %) 85.3 H Lymph % (Auto) (14.0 - 32.0 %) 10.4 L Boundary % (Auto) (4.8 - 9.0 %) 3.5 L Eos % (Auto) (0.3 - 3.7 %) 0.0 L Baso % (Auto) (0.0 - 2.0 %) 0.1 Neut # (Auto) (2.0 - 7.6 x10 3/uL) 8.34 H Lymph # (Auto) (1.0 - 3.8 x10 3/uL) 1.02 Boundary # (Auto) (0.1 - 0.8 x10 3/uL) 0.34 Eos # (Auto) (0.0 - 0.2 x10 3/uL) 0.00 Baso # (Auto) (0.0 - 0.2 x10 3/uL) 0.01 Abs Immat Gran (auto) (0.00 - 0.03 x10 3/uL) 0. 07 H Add Manual Diff NO Immature Gran % (0.0 - 2.0 %) 0.7 Nucleated RBC % (0 - 0 %) 0.0 Nucleated RBCs # (Man) (0.0 - 0.1 x10 3/uL) 0.0 0 Microbiology: Date/Time Procedure - Status Source Growth 09/13 0455 MRSA DNA Surveillance Screen - RECD NASAL Laboratory Tests: 09/12 09/12 09/12 09/12 1606 1115 1105 0604 Chemistry POC Glucose (70 - 110 MG/DL) 150 H 68 L 170 H B-Natriuretic Peptide (0 - 100 PG/ML) 297.0 H Hematology Eos Smear Total Cells NONE SEEN 09/12 09/11 09/11 0420 2130 1933 Chemistry Sodium (134 - 147 mEq/L) 134 Potassium (3.4 - 5.0 mEq/L) 4.2 Chloride (100 - 108 mEq/L) 106 Carbon Dioxide (21 - 33 mEq/l) 20 L Anion Gap (0 - 20) 12 BUN (7 - 18 mg/dL) 31 H Creatinine (0.6 - 1.3 mg/dL) 2.4 H Glomerular Filtr Rate (90 - 95) 30.5 L Glucose (70 - 110 mg/dL) 167 H POC Glucose (70 - 110 MG/DL) 150 H Calcium (8.0 - 10.5 mg/dL) 8.2 Phosphorus (2.5 - 4.9 MG/DL) 4.4 Magnesium (1.80 - 2.40 mg/dL) 1.86 Hematology WBC (4.5 - 11.0 x10 3/uL) 8.8 RBC (4.00 - 5.60 x10 6/uL) 2.73 L Hgb (12.5 - 16.9 g/dL) 7.7 L Hct (37.5 - 50.7 %) 23.7 L MCV (81.0 - 99.0 fL) 86.8 MCH (27.0 - 33.0 pg) 28.2 MCHC (33.0 - 37.0 g/dL) 32.5 L RDW (11.5 - 14.5 %) 13.8 Plt Count (150 - 400 x10 3/uL) 248 MPV (7.0 - 9.0 fL) 9.7 H Neut % (Auto) (56.0 - 77.0 %) 72.3 Lymph % (Auto) (14.0 - 32.0 %) 15.0 Boundary % (Auto) (4.8 - 9.0 %) 7.9 Eos % (Auto) (0.3 - 3.7 %) 3.8 H Baso % (Auto) (0.0 - 2.0 %) 0.3 Neut # (Auto) (2.0 - 7.6 x10 3/uL) 6.34 Lymph # (Auto) (1.0 - 3.8 x10 3/uL) 1.31 Boundary # (Auto) (0.1 - 0.8 x10 3/uL) 0.69 Eos # (Auto) (0.0 - 0.2 x10 3/uL) 0.33 H Baso # (Auto) (0.0 - 0.2 x10 3/uL) 0.03 Abs Immat Gran (auto) (0.00 - 0.03 x10 3/uL) 0. 06 H Add Manual Diff NO Immature Gran % (0.0 - 2.0 %) 0.7 Nucleated RBC % (0 - 0 %) 0.0 Nucleated RBCs # (Man) (0.0 - 0.1 x10 3/uL) 0.0 0 Toxicology Random Vancomycin (mcg/mL) 16.7 Laboratory Tests: 09/11 09/11 09/11 09/11 09/11 1532 1445 1114 0541 0445 Chemistry Sodium (134 - 147 mEq/L) 134 Potassium (3.4 - 5.0 mEq/L) 4.3 Chloride (100 - 108 mEq/L) 105 Carbon Dioxide (21 - 33 mEq/l) 22 Anion Gap (0 - 20) 12 BUN (7 - 18 mg/dL) 26 H Creatinine (0.6 - 1.3 mg/dL) 2.0 H Glomerular Filtr Rate (90 - 95) 38.0 L Glucose (70 - 110 mg/dL) 109 POC Glucose (70 - 110 MG/DL) 93 109 127 H Calcium (8.0 - 10.5 mg/dL) 8.3 Phosphorus (2.5 - 4.9 MG/DL) 4.7 Magnesium (1.80 - 2.40 mg/dL) 1.90 Hematology WBC (4.5 - 11.0 x10 3/uL) 7.9 RBC (4.00 - 5.60 x10 6/uL) 2.94 L Hgb (12.5 - 16.9 g/dL) 8.3 L Hct (37.5 - 50.7 %) 25.8 L MCV (81.0 - 99.0 fL) 87.8 MCH (27.0 - 33.0 pg) 28.2 MCHC (33.0 - 37.0 g/dL) 32.2 L RDW (11.5 - 14.5 %) 13.7 Plt Count (150 - 400 x10 3/uL) 269 MPV (7.0 - 9.0 fL) 9.8 H Neut % (Auto) (56.0 - 77.0 %) 67.9 Lymph % (Auto) (14.0 - 32.0 %) 16.1 Boundary % (Auto) (4.8 - 9.0 %) 9.1 H Eos % (Auto) (0.3 - 3.7 %) 5.6 H Baso % (Auto) (0.0 - 2.0 %) 0.5 Neut # (Auto) (2.0 - 7.6 x10 3/uL) 5.35 Lymph # (Auto) (1.0 - 3.8 x10 3/uL) 1.27 Boundary # (Auto) (0.1 - 0.8 x10 3/uL) 0.72 Eos # (Auto) (0.0 - 0.2 x10 3/uL) 0.44 H Baso # (Auto) (0.0 - 0.2 x10 3/uL) 0.04 Abs Immat Gran (auto) (0.00 - 0.03 0.06 H x10 3/uL) Add Manual Diff NO Immature Gran % (0.0 - 2.0 %) 0.8 Nucleated RBC % (0 - 0 %) 0.0 Nucleated RBCs # (Man) (0.0 - 0.1 0.00 x10 3/uL) Toxicology Random Vancomycin (mcg/mL) 18.3 09/10 1851 Chemistry POC Glucose (70 - 110 MG/DL) 97 Laboratory Tests: 09/10 09/10 09/10 09/10 09/10 1715 1625 1430 1007 0545 Chemistry Sodium (134 - 147 mEq/L) 135 Potassium (3.4 - 5.0 mEq/L) 4.2 Chloride (100 - 108 mEq/L) 107 Carbon Dioxide (21 - 33 mEq/l) 21 Anion Gap (0 - 20) 11 BUN (7 - 18 mg/dL) 25 H Creatinine (0.6 - 1.3 mg/dL) 1.9 H Glomerular Filtr Rate (90 - 95) 40.4 L Glucose (70 - 110 mg/dL) 156 H POC Glucose (70 - 110 MG/DL) 75 58 L 213 H Calcium (8.0 - 10.5 mg/dL) 8.3 Phosphorus (2.5 - 4.9 MG/DL) 4.6 Magnesium (1.80 - 2.40 mg/dL) 1.89 Hematology WBC (4.5 - 11.0 x10 3/uL) 8.6 RBC (4.00 - 5.60 x10 6/uL) 3.08 L Hgb (12.5 - 16.9 g/dL) 8.6 L Hct (37.5 - 50.7 %) 26.7 L MCV (81.0 - 99.0 fL) 86.7 MCH (27.0 - 33.0 pg) 27.9 MCHC (33.0 - 37.0 g/dL) 32.2 L RDW (11.5 - 14.5 %) 13.8 Plt Count (150 - 400 x10 3/uL) 265 MPV (7.0 - 9.0 fL) 9.6 H Neut % (Auto) (56.0 - 77.0 %) 69.4 Lymph % (Auto) (14.0 - 32.0 %) 15.5 Boundary % (Auto) (4.8 - 9.0 %) 8.5 Eos % (Auto) (0.3 - 3.7 %) 5.5 H Baso % (Auto) (0.0 - 2.0 %) 0.4 Neut # (Auto) (2.0 - 7.6 x10 3/uL) 5.94 Lymph # (Auto) (1.0 - 3.8 x10 3/uL) 1.33 Boundary # (Auto) (0.1 - 0.8 x10 3/uL) 0.73 Eos # (Auto) (0.0 - 0.2 x10 3/uL) 0.47 H Baso # (Auto) (0.0 - 0.2 x10 3/uL) 0.03 Abs Immat Gran (auto) (0.00 - 0.03 0.06 H x10 3/uL) Add Manual Diff NO Immature Gran % (0.0 - 2.0 %) 0.7 Nucleated RBC % (0 - 0 %) 0.0 Nucleated RBCs # (Man) (0.0 - 0.1 0.00 x10 3/uL) Toxicology Random Vancomycin (mcg/mL) 15.7 09/10 09/09 0541 1911 Chemistry POC Glucose (70 - 110 MG/DL) 154 H 102 Recent Impressions: ULTRASOUND - US RETROPERITONEAL COM 09/10 1311 Report Impression - Status: SIGNED Entered: 09/10/2022 1503 IMPRESSION: No acute findings. Impression By: Yared - Hakeem Perez Laboratory Tests: 09/09 09/09 09/09 09/09 09/09 1606 1526 1403 1049 0524 Chemistry POC Glucose (70 - 110 MG/DL) 109 30 L 90 128 H Toxicology Random Vancomycin (mcg/mL) 15.4 09/09 09/08 09/08 0500 1955 1828 Chemistry Sodium (134 - 147 mEq/L) 136 Potassium (3.4 - 5.0 mEq/L) 4.2 Chloride (100 - 108 mEq/L) 107 Carbon Dioxide (21 - 33 mEq/l) 22 Anion Gap (0 - 20) 11 BUN (7 - 18 mg/dL) 23 H Creatinine (0.6 - 1.3 mg/dL) 1.5 H Glomerular Filtr Rate (90 - 95) 53.6 L Glucose (70 - 110 mg/dL) 125 H POC Glucose (70 - 110 MG/DL) 106 Calcium (8.0 - 10.5 mg/dL) 8.2 Phosphorus (2.5 - 4.9 MG/DL) 4.0 Magnesium (1.80 - 2.40 mg/dL) 1.89 Iron (35 - 150 mcg/dL) 10 L TIBC (260 - 445 mcg/dL) 138 L % Saturation (14 - 34 %) 7.2 L Unsat Iron Binding (mcg/dL) 128 Ferritin (23.9 - 336.2 ng/mL) 700.5 H Lactate Dehydrogenase (87 - 241 IUnits/L) 193 Hematology WBC (4.5 - 11.0 x10 3/uL) 9.2 RBC (4.00 - 5.60 x10 6/uL) 3.01 L Hgb (12.5 - 16.9 g/dL) 8.5 L Hct (37.5 - 50.7 %) 25.9 L MCV (81.0 - 99.0 fL) 86.0 MCH (27.0 - 33.0 pg) 28.2 MCHC (33.0 - 37.0 g/dL) 32.8 L RDW (11.5 - 14.5 %) 13.8 Plt Count (150 - 400 x10 3/uL) 263 MPV (7.0 - 9.0 fL) 9.7 H Neut % (Auto) (56.0 - 77.0 %) 69.1 Lymph % (Auto) (14.0 - 32.0 %) 16.1 Boundary % (Auto) (4.8 - 9.0 %) 9.2 H Eos % (Auto) (0.3 - 3.7 %) 4.7 H Baso % (Auto) (0.0 - 2.0 %) 0.4 Neut # (Auto) (2.0 - 7.6 x10 3/uL) 6.38 Lymph # (Auto) (1.0 - 3.8 x10 3/uL) 1.49 Boundary # (Auto) (0.1 - 0.8 x10 3/uL) 0.85 H Eos # (Auto) (0.0 - 0.2 x10 3/uL) 0.43 H Baso # (Auto) (0.0 - 0.2 x10 3/uL) 0.04 Abs Immat Gran (auto) (0.00 - 0.03 x10 3/uL) 0. 05 H Add Manual Diff NO Immature Gran % (0.0 - 2.0 %) 0.5 Nucleated RBC % (0 - 0 %) 0.0 Nucleated RBCs # (Man) (0.0 - 0.1 x10 3/uL) 0.0 0 Retic Count (auto) (0.3 - 2.3 %) 1.3 Laboratory Tests: 09/08 09/08 09/08 09/08 09/08 1611 1318 1045 1033 0616 Chemistry POC Glucose (70 - 110 MG/DL) 120 H 101 99 101 Toxicology Random Vancomycin (mcg/mL) 15.8 09/08 09/07 09/07 0615 2238 2110 Chemistry Sodium (134 - 147 mEq/L) 135 Potassium (3.4 - 5.0 mEq/L) 4.6 Chloride (100 - 108 mEq/L) 107 Carbon Dioxide (21 - 33 mEq/l) 22 Anion Gap (0 - 20) 10 BUN (7 - 18 mg/dL) 22 H Creatinine (0.6 - 1.3 mg/dL) 1.4 H Glomerular Filtr Rate (90 - 95) 58.3 L Glucose (70 - 110 mg/dL) 100 POC Glucose (70 - 110 MG/DL) 135 H 127 H Calcium (8.0 - 10.5 mg/dL) 8.1 Magnesium (1.80 - 2.40 mg/dL) 1.58 L Total Creatine Kinase (46 - 171 Units/L) 22 L Albumin (3.4 - 5.0 g/dL) 1.30 L Prealbumin (16.0 - 40.0 mg/dL) < 5.0 L Hematology WBC (4.5 - 11.0 x10 3/uL) 9.1 RBC (4.00 - 5.60 x10 6/uL) 3.05 L Hgb (12.5 - 16.9 g/dL) 8.5 L Hct (37.5 - 50.7 %) 26.2 L MCV (81.0 - 99.0 fL) 85.9 MCH (27.0 - 33.0 pg) 27.9 MCHC (33.0 - 37.0 g/dL) 32.4 L RDW (11.5 - 14.5 %) 13.5 Plt Count (150 - 400 x10 3/uL) 231 MPV (7.0 - 9.0 fL) 9.6 H Neut % (Auto) (56.0 - 77.0 %) 73.3 Lymph % (Auto) (14.0 - 32.0 %) 13.7 L Boundary % (Auto) (4.8 - 9.0 %) 7.2 Eos % (Auto) (0.3 - 3.7 %) 4.8 H Baso % (Auto) (0.0 - 2.0 %) 0.3 Neut # (Auto) (2.0 - 7.6 x10 3/uL) 6.64 Lymph # (Auto) (1.0 - 3.8 x10 3/uL) 1.24 Boundary # (Auto) (0.1 - 0.8 x10 3/uL) 0.65 Eos # (Auto) (0.0 - 0.2 x10 3/uL) 0.43 H Baso # (Auto) (0.0 - 0.2 x10 3/uL) 0.03 Abs Immat Gran (auto) (0.00 - 0.03 x10 3/uL) 0. 06 H Add Manual Diff NO Immature Gran % (0.0 - 2.0 %) 0.7 Nucleated RBC % (0 - 0 %) 0.0 Nucleated RBCs # (Man) (0.0 - 0.1 x10 3/uL) 0.0 0 Laboratory Tests: 09/07 09/07 09/07 09/07 09/07 1554 1137 1127 0618 0510 Chemistry Creatinine (0.6 - 1.3 mg/dL) 1.4 H POC Glucose (70 - 110 MG/DL) 112 H 51 L 42 L 13 5 H Hematology Hgb (12.5 - 16.9 g/dL) 8.4 L Hct (37.5 - 50.7 %) 26.2 L Toxicology Random Vancomycin (mcg/mL) 14.7 09/06 09/06 2226 2108 Chemistry POC Glucose (70 - 110 MG/DL) 192 H 211 H Laboratory Tests: 09/06 09/06 09/06 09/06 09/06 1553 1547 1051 0538 0536 Chemistry Creatinine (0.6 - 1.3 mg/dL) 1.4 H POC Glucose (70 - 110 MG/DL) 119 H 92 124 H Hematology Hgb (12.5 - 16.9 g/dL) 8.6 L Hct (37.5 - 50.7 %) 26.1 L Toxicology Vancomycin Trough (10.0 - 20.0 mcg/mL) 18.9 09/05 1910 Chemistry POC Glucose (70 - 110 MG/DL) 117 H Laboratory Tests: 09/05 09/05 09/04 09/04 09/04 1149 0615 2042 1630 1557 Chemistry Sodium (134 - 147 mEq/L) 134 Potassium (3.4 - 5.0 mEq/L) 5.0 Chloride (100 - 108 mEq/L) 109 H Carbon Dioxide (21 - 33 mEq/l) 21 Anion Gap (0 - 20) 9 BUN (7 - 18 mg/dL) 24 H Creatinine (0.6 - 1.3 mg/dL) 1.3 Glomerular Filtr Rate (90 - 95) 63.7 L Glucose (70 - 110 mg/dL) 75 POC Glucose (70 - 110 MG/DL) 74 103 128 H Calcium (8.0 - 10.5 mg/dL) 7.9 L Hematology Hgb (12.5 - 16.9 g/dL) 7.1 L Hct (37.5 - 50.7 %) 22.7 L Toxicology Vancomycin Trough (10.0 - 20.0 mcg/mL) 12.8 Microbiology: Date/Time Procedure - Status Source Growth 09/04 1739 Occult Blood - COMP STOOL Recent Impressions: RADIOLOGY - XR ABDOMEN 1V (KUB) 09/04 1648 Report Impression - Status: SIGNED Entered: 09/04/2022 1757 IMPRESSION: Benign appearance of the abdomen. Impression By: [email or web address] - Hakeem Soto ULTRASOUND - DUP VEIN UNI/LTD 09/05 1146 Report Impression - Status: SIGNED Entered: 09/05/2022 1333 IMPRESSION: 1. No evidence of deep vein thrombosis. 2. Complex heterogeneous hypoechoic fluid collec tion in the left calf region measuring 8.4 x 2.8 x 2.5 cm; there is no internal vascularity or peripheral hyperemia. May represe nt a hematoma. Impression By: [email or web address] - Mert Ga M.D. RADIOLOGY - XR CHEST 1 V 09/05 1432 Report Impression - Status: SIGNED Entered: 09/05/2022 1515 IMPRESSION: Minimal bibasilar pulmonary opacities Impression By: Hakeem Jacobo Laboratory Tests: 09/04 09/04 09/04 09/04 09/04 1630 1557 1100 1031 0816 Chemistry POC Glucose (70 - 110 MG/DL) 128 H 107 99 Hematology Hgb (12.5 - 16.9 g/dL) 7.7 L Hct (37.5 - 50.7 %) 23.7 L Toxicology Vancomycin Trough (10.0 - 20.0 mcg/mL) 12.8 09/04 09/04 09/03 09/03 0721 0540 1944 1836 Chemistry POC Glucose (70 - 110 MG/DL) 87 124 H Hematology Hgb (12.5 - 16.9 g/dL) 6.8 L Hct (37.5 - 50.7 %) 21.2 L Toxicology Vancomycin Peak (30 - 40 MCG/ML) 27.4 L Microbiology: Date/Time Procedure - Status Source Growth 09/04 1037 Occult Blood - COLB STOOL 1.Diabetes mellitus type 2 uncontrolled complica tions. 2. 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 4. Sepsis 5. Prostate abscess. 6. Anemia Blood sugar 244-251 mg/dL.H/H 8.11/17. Adjust insulin dose. PT and OT. Electronically Signed by Braxton Chapin MD on 06/16 at 1740 RPT #:[id number] END OF REPORT 2022-09-22 14:43:00-00:00 [facility] ([facility]) Infectious Dis. Progress Note REPORT#:[id number] REPORT STATUS: Signed DATE:09/22/22 TIME: 1443 PATIENT: KARMA ROWLAND UNIT #: [id number] [place] [facility] : [place] AGE: 56 SEX: M ATTEND: Fredy Vences MD ADM AUTHOR: Anthony Curtis MD * ALL edits or amendments must be made on the el ectronic/computer document * Subjective Chief complaint: Follow-up on MRSA bacteremia, prostatic abscess. HPI: Patient reports feeling better subjectively. Den ies acute or new complaints. No major overnight events. Objective General VS/I O: Vital Signs Date Temp Pulse Resp B/P B/P Mean Pulse Ox FiO2 09/21-09/22 97.3-99.0 81-90 14-20 122-179/64-88 83.1-118.4 96-98 Last Documented: Result Date Time Pulse Ox 96 09/22 1844 B/P 122/64 05/ 1844 B/P Mean 83.1 / 1844 O2 Delivery Room air 09/22 1844 Temp 97.9 / 1844 Pulse 90 / 1844 Resp 16 09/22 1844 O2 Flow Rate 2 09/08 1322 Vital Signs: Date Time Temp Pulse Resp B/P B/P Pulse O2 O2 Flow FiO2 Mean Ox Delivery Rate 09/22 1844 97.9 90 16 122/64 83.1 96 Room air 09/22 1541 99.0 85 18 127/71 89.4 96 Room air 09/22 0708 97.9 89 18 158/80 106.1 97 Room air 09/22 0036 97.3 81 14 155/76 102.5 97 Room air 09/21 2108 86 169/86 114.0 98 Room air 09/21 2106 87 171/86 114.5 98 Room air 09/21 2045 98.1 90 20 179/88 118.4 98 Room air 24 hour I O ending at 0700: 09/22 0700 09/21 1900 Intake Total Output Total 2100 Balance -2100 Number 1 Bowel Movements Number 0 Incontinent Voids Number Voids 0 Output, Urine 2100 PATIENT WEIGHT: Weight (lb): 167 Weight (oz): 12.35 Weight (kg): 76.100 Physical Exam General appearance: awake, no acute distress Cardiovascular: normal heart sounds, regular rat e rhythm Respiratory: clear to auscultation, aerating wel l Abdomen: non-tender, soft, no distention Extremities: edema (in left leg and thig h improved), moves all, right BKA Left foot wound +dressing in place 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 According to him, he noticed a bliste r on his right foot around 3 days prior to presentation. His foot got progres sively more swollen and erythema extended proximally to his lateral foot and ankle. CT abdomen and pelvis with contrast is concerning for possible prostate abscess. CT of lower extremity without contrast s hows extensive soft tissue edema with mottled gas in the subcutaneous and intramu scular compartments of the foot, compatible with gas -forming infection. Patient's blood cultures hav e come back positive for MRSA in 2 out of 2 sets. Patient has had persistent p ositive cultures for MRSA. He underwent a debridement of his foot on and cultures grew MRSA. Patient was started on vanco mycin and clindamycin on 08/18/2022. His MRI showed a prostate abscess. 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 Pt underwent a transrectal aspiration and u nroofing of prostate abscess 08/26/2022 and cultures grew Citrobacter, Enterococcus, MRSA. 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 JIMENA done 09/02/2022, which was negative fo r vegetations. Patient was transferred to Rehab on 09/02/2022. *MRSA bacteremia, refractory, now cleared *Prostatic abscess, s/p unroofing 08/26/2022 *ERIKA *Hyponatremia *Diabetic neuropathy *Diabetes mellitus type 2 *Hypertension *Anemia -Afebrile; although with an isolated low-grade t emperature spike of 37.2 C. -Leukocytosis of 12.0 on today's CBC noted; over all, downtrending. -No recent cultures. Last blood cultures from negative x2. Plan: -On daptomycin and meropenem. -Finishing treatment 09/24/2022. -Would finish treatment as planned and then madelin tor off antimicrobials. -Continue supportive care. Electronically Signed by Anthony Curtis MD on 06/16 at 2010 [facility] #:[id number] END OF REPORT 2022-09-22 13:59:00-00:00 [facility] ([facility]) Pain Management Progress Note REPORT#:[id number] REPORT STATUS: Signed DATE:09/22/22 TIME: 135 PATIENT: KARMA ROWLAND UNIT #: [id number] [place] [facility] [place] AGE: 56 SEX: M ATTEND: Fredy Vences MD ADM AUTHOR: Ben Klein * ALL edits or amendments must be made on the [employer]/computer document * Ben Klein 09/22/22 1359: Subjective Chief complaint: Patient seen and examined. Chart/MAR reviewed. Patient feels well this morning. Events noted. P ain control improving. No aggravating neuropathy symptoms or muscle spasms . Patient being seen for Acute postoperative pain, right foot and ankle gangrene, requiring BKA, Neuropathy, Constipatio n Patient is still requiring medications to help w ith managing current problems. No fever/chills, chest pain, orthopnea, nausea/v omiting, pruritus, or hallucinations. 14 point ROS undertaken unremarkable except as n oted Objective General VS/I O: Vital Signs Date Temp Pulse Resp B/P B/P Mean Pulse Ox FiO2 09/21-09/22 36.3-36.7 80-90 14-20 155-179/76-88 102.5-118.4 97-98 Last Documented: Result Date Time Pulse Ox 97 09/22 0708 B/P 158/80 09/22 0708 B/P Mean 106.1 09/22 0708 O2 Delivery Room air 09/22 0708 Temp 36.6 09/22 0708 Pulse 89 09/22 0708 Resp 18 09/22 0708 O2 Flow Rate 2 09/08 1322 24 hour I O ending at 0700: 09/22 0700 09/21 1900 Intake Total Output Total 2099 Balance -2100 Number 1 Bowel Movements Number 0 Incontinent Voids Number Voids 0 Output, Urine 2099 PATIENT WEIGHT: Weight (lb): 167 Weight (oz): 12.35 Weight (kg): 76.100 Medications: Active Meds + DC'd Last 24 Hrs Amlodipine Besylate (NORVASC) 10 MG DAILY PO Prednisone (predniSONE) 50 MG C BK PO Hydralazine HCl (APRESOLINE) 100 MG Q8HR PO Insulin Glargine (Semglee) 19 UNIT BEDTIME SUBQ Daptomycin (CUBICIN 500MG) 500 MG Q24H IV (DC) Sodium Chloride (SODIUM CHLORIDE 0.9%) 50 ML Insulin Human Lispro (HUMALOG) 10 UNIT AC SUBQ Meropenem (MEROPENEM) 500 MG Q8H IV (DC) Sterile Water (WATER FOR INJECTION) 10 ML Carvedilol (COREG) 25 MG C BK DIN PO Gabapentin (NEURONTIN) 100 MG Q8HR PO Oxycodone/Acetaminophen (PERCOCET 5/325MG TAB) 2 TAB Q4H PRN PRN PO Folic Acid (FOLIC ACID) 2 MG DAILY PO Multivitamins (TAB-A-MOHAN) 1 TAB DAILY PO Furosemide (LASIX 20MG INJ) 20 MG BLOOD-DOSE BET WEEN IV (CKD) Sodium Chloride (SODIUM CHLORIDE) 10 ML ASDIR IV Pantoprazole Sodium (PROTONIX) 40 MG Q12HR IV Polyethylene Glycol (MIRALAX) 17 GM DAILY PO Sennosides (Senna Lax 8.6 MG TABLET) 8.6 MG MADALYN Y PO Sodium Chloride (SODIUM CHLORIDE) 10 ML ASDIR NV N IV Amitriptyline HCl (ELAVIL) 25 MG BEDTIME PO Zinc Oxide (ZINC OXIDE 30 GM OINTMENT) 1 APPLIC DAILY TOPICAL Sterile Water (WATER FOR IRRIGATION) DRESSING CH GELACIO ASDIR PRN IRR Insulin Human Lispro (HUMALOG) 0 AC HS SUBQ Dextrose/Water (DEXTROSE 10% IN WATER) 125 ML DIR PRN IV (CKD) Dextrose/Water (DEXTROSE 10% IN WATER) 250 ML DIR PRN IV (CKD) Glucagon (GLUCAGON) 1 MG ASDIR PRN IM Lidocaine (LIDODERM) 1 PATCH DAILY TOPICAL Acetaminophen (TYLENOL) 650 MG Q6H PRN PRN PO Bisacodyl (DULCOLAX) 10 MG DAILY PRN PRN RECTAL Docusate Sodium (COLACE) 100 MG Q12H PRN PRN PO Hydralazine HCl (APRESOLINE) 10 MG Q6H PRN PRN I V Ondansetron HCl (ZOFRAN) 4 MG Q6H PRN PRN IV Physical Exam General appearance: alert, awake, oriented, no a cute distress Head/eyes: atraumatic, EOMI, normocephalic, norm al conjunctiva/sclera, PERRLA ENT: normal pharynx, moist mucosal membranes Neck: full range of motion, no lymphadenopathy, supple/no meningismus Cardiovascular: regular rate rhythm Respiratory: aerating well Abdomen: soft, non-tender, no distention , active bowel sounds in all quarants. 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: 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, no sensory deficit s, CNII-XII grossly intact Considered stroke alert: no Skin: dry, intact, no rash Lymphatics: axilla normal Psychiatry: normal affect, normal judgment/insig ht Results Findings/data: Laboratory Tests: 09/22 09/22 09/22 09/22 1057 0617 0436 0436 Chemistry Sodium (134 - 147 mEq/L) 138 Potassium (3.4 - 5.0 mEq/L) 5.1 H Chloride (100 - 108 mEq/L) 111 H Carbon Dioxide (21 - 33 mEq/l) 20 L Anion Gap (0 - 20) 12 BUN (7 - 18 mg/dL) 71 H Creatinine (0.6 - 1.3 mg/dL) 1.8 H Glomerular Filtr Rate (90 - 95) 43.1 L Glucose (70 - 110 mg/dL) 244 H POC Glucose (70 - 110 MG/DL) 170 H 251 H Calcium (8.0 - 10.5 mg/dL) 7.3 L Phosphorus (2.5 - 4.9 MG/DL) 5.0 H Magnesium (1.80 - 2.40 mg/dL) 2.13 Total Creatine Kinase (46 - 171 Units/L) 27 L B-Natriuretic Peptide (0 - 100 PG/ML) 251.0 H Albumin (3.4 - 5.0 g/dL) 1.80 L Prealbumin (16.0 - 40.0 mg/dL) 16.7 Hematology WBC (4.5 - 11.0 x10 3/uL) 12.0 H RBC (4.00 - 5.60 x10 6/uL) 2.65 L Hgb (12.5 - 16.9 g/dL) 7.7 L Hct (37.5 - 50.7 %) 24.2 L MCV (81.0 - 99.0 fL) 91.3 MCH (27.0 - 33.0 pg) 29.1 MCHC (33.0 - 37.0 g/dL) 31.8 L RDW (11.5 - 14.5 %) 16.0 H Plt Count (150 - 400 x10 3/uL) 305 MPV (7.0 - 9.0 fL) 9.5 H Neut % (Auto) (56.0 - 77.0 %) 81.7 H Lymph % (Auto) (14.0 - 32.0 %) 11.3 L Boundary % (Auto) (4.8 - 9.0 %) 5.7 Eos % (Auto) (0.3 - 3.7 %) 0.2 L Baso % (Auto) (0.0 - 2.0 %) 0.0 Neut # (Auto) (2.0 - 7.6 x10 3/uL) 9.79 H Lymph # (Auto) (1.0 - 3.8 x10 3/uL) 1.35 Boundary # (Auto) (0.1 - 0.8 x10 3/uL) 0.68 Eos # (Auto) (0.0 - 0.2 x10 3/uL) 0.02 Baso # (Auto) (0.0 - 0.2 x10 3/uL) 0.00 Abs Immat Gran (auto) (0.00 - 0.03 0.13 H x10 3/uL) Add Manual Diff NO Immature Gran % (0.0 - 2.0 %) 1.1 Nucleated RBC % (0 - 0 %) 0.0 Nucleated RBCs # (Man) (0.0 - 0.1 x10 3/uL) 0.0 0 09/21 09/21 09/21 2047 1552 1437 Chemistry POC Glucose (70 - 110 MG/DL) 251 H 170 H 167 H Diagnosis, Assessment Plan Free text A P: A/P: Patient is a 56 year old male who presents with: Past Medical History: Prostate abscess, right fo ot foot and ankle gangrene, diabetes, hypertension, hyperlipidemia Past Surgical History: TURP, right BKA Family History: Noncontributory Social History: Denies tobacco, alcohol, or drug use Allergies: NKDA Recent prostate abscess -Status post TURP with unroofing of abscess -IV antibiotics with vancomycin until 09-24-2022 Acute postoperative pain, right foot and ankle g angrene, requiring BKA -Patient is at risk for further amputations or l oss of limb due to comorbid conditions -Status post right BKA 08/28/2022 -DC Check 10/325 1 tablet p.o. every 4 hours as needed pain scale 4 10 -DC Dilaudid 0.5 mg IV daily as needed pain scale 7 10, second line therapy () -Tylenol 650 mg p.o. every 6 hours as needed ofelia n scale 1 3 -Percocet 10/325mg every 4 hours as needed, pain scale 4-10 (09/10) -Lidoderm patch to left ankle daily -IV antibiotics with vancomycin until 09-24-2022 -Local wound care -manageable Diabetic peripheral neuropathy -amitriptyline 25mg PO QHS -Gabapentin 100mg every 8 hours (09/10) -manageable Hypertension -We will monitor hypertension and tachycardia du e to pain, and hypotension as well as bradycardia secondary over sedation with narcotics -Hydralazine as needed Elevated LFTs -08/20/22-AST 51, ALT 22 -09/03/2022-AST 15, ALT 7 -Patient will require close monitoring since he is using narcotics with Tylenol Impaired functional mobility, balance, gait, and endurance -PT/OT Antalgic/Impaired gait -PT/OT -Improve strength, endurance, self-care, gait, b alance, ADLs -Fall precautions per unit protocol -Pain medications as outlined above Constipation -We will monitor while utilizing opioid narcotic medications. -Adequate fluid intake also discussed. -Colace 100 mg p.o. twice daily as needed -Dulcolax 10 mg rectally daily as needed -Senna lax 8.6mg daily -Miralax 17gm daily -manageable Disposition: percocet 10/325 mg q6h prn pain , gabapentin 100mg q8h sent to [facility]/ pharmacy #[id number] [address] [place] [place] [address] [address] Phone: Patient has failed conservative medical therapy. Patient will require monitoring while utilize na rcotic medications for any adverse effects, and will adjust as needed Plan of care discussed with patient and nurse All diagnostics of last 24 hours been reviewed. Risks versus benefits of opioid medications were reviewed to include, but not limited to respiratory depression, accid ental overdose, altered mental status, sudden , constipation which could result in bowel obstruction, seizures, withdrawal, dependency addiction, risk for falls . Case discussed with Dr Ng whom agrees. Thank you for the consultation. [place] [facility] NURSE: -database searched, no information found Kingsley Ng 10/09/22 0636: Attestations Physician Attestation Agree w/findings plan: The patient was seen and exa mined by Ben Klein. I personally developed the care plan, which was continued by the mid-level provider. I was immediately available. at 1400 Electronically Signed by Kingsley Ng MD on 3 at 0642 RPT #:[id number] END OF REPORT 2022-09-22 12:46:00-00:00 [facility] Gastroenterology Progress Note REPORT#:[id number] REPORT STATUS: Signed DATE:09/22/22 TIME: 1246 PATIENT: KARMA ROWLAND UNIT #: [id number] ROOM/BED: [place] [id number] : 61 AGE: 56 SEX: M ATTEND: Fredy Vences MD ADM AUTHOR: Kassie Avitia MD * ALL edits or amendments must be made on the [employer]/computer document * Subjective HPI: Patient is a 56-year-old male with history of di abetes mellitus type 2 and hypertension who was initially admitted for alte red mental status and right- sided foot infection. 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 The p atient is anemic with current Hgb 7.1. He has received a total of 3 un its pRBCs during this hospitalization. KUB on 09/04 was negative for acute GI process. T he patient denies overt GIB, dark tarry stools, nausea, a bdominal pain, or vomiting. He has never had EGD or colonoscopy. 09/06: No complaints today. Hemoglobin stable. No overt GI bleed. Plan for colonoscopy and endoscopy on Thursday 09/07: No complaints today. No overt GI bleed. Pl anning for colonoscopy and endoscopy tomorrow 09/08: EGD mild gastritis. colonoscopy rectal eugenia yp s/p snare. No other abnormalities 09/09: doing well. Seen at the gym. No bleeding. 09/10: Doing well. No bleeding. tolerating diet. Movig bowels 09/11: doing well. States his leg swelling is bet ter. Tolerating diet. having normal BM 09/12: dooing well. doing work-out at the gym. To lerating diet. Normal BMs. Stable H/H 09/14-Sitting up in wheelchair, family at bedside . Denies n/v/abd pain/GIB 09/15: Doing well. H/H stable. No melena or BRBPR . No nausea or vomiting. Appetite is well 09/16: doing well. no complaints. eating well 09/17: stable H/H. No complaints. 09/18/22: H/H fluctuating but overall stable 09/19: H/H stable up to 8 today. No complaints. 09/20: Hemoglobin relatively stable. No complaint 09/21: no complaints. feeling well 09/22/2022: doing well. looking forward to be disc harged Objective Physical Exam HEENT: atraumatic, normocephalic Neck: full range of motion, non-tender Respiratory: symmetric expansion, no distress Abdomen: non-tender, normal bowel sounds, soft, no distention, no guarding Extremities: right BKA Considered stroke alert: no Skin: dry Diagnosis, Assessment Plan Free Text A P: 1. Positive FOBT-and anemia: The patient denies overt GIB, dark tarry stools, nausea, abdominal pain, or vomiting. He is not o n anticoagulation therapy. -Continue PPI. The patient has never had EGD or colonoscopy prior to this admission s/p EGD and colonoscopy. EGD showed mild gastrit is. Colonoscopy showed rectal polyp that was resected by snare. no evidence of bleeding. Pathology of polyp came back as tubular adenoma. recommend repeatin g colonoscopy in 5 years Anemia likely secondary to chronic kidney diseas e and mild oozing from his stump. Can consider video capsule endoscopy as outpt if evidence of dropping H/H H/H remains stable Consider reducing frequency of H/H check Will follow along Consultants: cardiology, endocrinology, hospital ist, infectious disease, podiatry at 1247 RPT #:[id number] END OF REPORT 2022-09-22 10:45:00-00:00 [facility] Cardiology Progress Note REPORT#:[id number] REPORT STATUS: Signed DATE:09/22/22 TIME: 1045 PATIENT: KARMA ROWLAND UNIT #: [id number] ROOM/BED: [place] [address] : 63 AGE: 56 SEX: M ATTEND: Fredy Vences MD ADM AUTHOR: Rohit Benitez CLAY MILLER * ALL edits or amendments must be made on the [employer]/computer document * Rohit Benitez 09/22/22 1045: Subjective Chief complaint: weakness Free Text Subj Notes Free Text Subj Notes: Patient seen and evaluated in the gym, working w ith therapy. No new cardiac complaints. Objective General VS/I O: 24 hour I O ending at 0700: 09/22 0700 09/21 1900 Intake Total Output Total 2100 Balance -2100 Number 1 Bowel Movements Number 0 Incontinent Voids Number Voids 0 Output, Urine 2100 Vital Signs: Date Time Temp Pulse Resp B/P B/P Pulse O2 O2 F low FiO2 Mean Ox Delivery Rate 09/23 707 97.9 89 18 158/80 106.1 97 Room air 09/22 003 97.3 81 14 155/76 102.5 97 Room air 09/22 2107 86 169/86 114.0 98 Room air 09/21 2105 87 171/86 114.5 98 Room air 09/21 2044 98.1 90 20 179/88 118.4 98 Room air 09/21 1554 97.5 80 18 169/83 111.6 97 PATIENT WEIGHT: Weight (lb): 167 Weight (oz): 12.35 Weight (kg): 76.100 Medications: Active Meds + DC'd Last 24 Hrs Amlodipine Besylate (NORVASC) 10 MG DAILY PO Prednisone (predniSONE) 50 MG C BK PO Hydralazine HCl (APRESOLINE) 100 MG Q8HR PO Insulin Glargine (Semglee) 19 UNIT BEDTIME SUBQ Daptomycin (CUBICIN 500MG) 500 MG Q24H IV (DC) Sodium Chloride (SODIUM CHLORIDE 0.9%) 50 ML Insulin Human Lispro (HUMALOG) 10 UNIT AC SUBQ Meropenem (MEROPENEM) 500 MG Q8H IV Sterile Water (WATER FOR INJECTION) 10 ML Carvedilol (COREG) 25 MG C BK DIN PO Gabapentin (NEURONTIN) 100 MG Q8HR PO Oxycodone/Acetaminophen (PERCOCET 5/325MG TAB) 2 TAB Q4H PRN PRN PO Folic Acid (FOLIC ACID) 2 MG DAILY PO Multivitamins (TAB-A-MOHAN) 1 TAB DAILY PO Furosemide (LASIX 20MG INJ) 20 MG BLOOD-DOSE BET WEEN IV (CKD) Sodium Chloride (SODIUM CHLORIDE) 10 ML ASDIR IV Pantoprazole Sodium (PROTONIX) 40 MG Q12HR IV Polyethylene Glycol (MIRALAX) 17 GM DAILY PO Sennosides (Senna Lax 8.6 MG TABLET) 8.6 MG MADALYN Y PO Sodium Chloride (SODIUM CHLORIDE) 10 ML ASDIR NV N IV Amitriptyline HCl (ELAVIL) 25 MG BEDTIME PO Zinc Oxide (ZINC OXIDE 30 GM OINTMENT) 1 APPLIC DAILY TOPICAL Sterile Water (WATER FOR IRRIGATION) DRESSING CH GELACIO ASDIR PRN IRR Insulin Human Lispro (HUMALOG) 0 AC HS SUBQ Dextrose/Water (DEXTROSE 10% IN WATER) 125 ML DIR PRN IV (CKD) Dextrose/Water (DEXTROSE 10% IN WATER) 250 ML DIR PRN IV (CKD) Glucagon (GLUCAGON) 1 MG ASDIR PRN IM Lidocaine (LIDODERM) 1 PATCH DAILY TOPICAL Acetaminophen (TYLENOL) 650 MG Q6H PRN PRN PO Bisacodyl (DULCOLAX) 10 MG DAILY PRN PRN RECTAL Docusate Sodium (COLACE) 100 MG Q12H PRN PRN PO Hydralazine HCl (APRESOLINE) 10 MG Q6H PRN PRN I V Ondansetron HCl (ZOFRAN) 4 MG Q6H PRN PRN IV Physical Exam General appearance: alert, awake, oriented Neck: no bruit/NL carotids, no JVD Cardiovascular: CV assessment: regular rate and rhythm, no ecto py, no gallop Respiratory: clear to auscultation, no distress Abdomen: soft, non-tender Genitourinary: urinary catheter Lower extremity: LE assessment: edema, normal temperature 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 X 3 Considered stroke alert: no Wound/incision: Location: right bka Psychiatry: normal affect, normal judgment/insig ht, normal mood Results Findings/Data: Laboratory Tests 09/22 09/22 09/22 09/21 0617 0436 0436 2047 Chemistry Sodium (134 - 147 mEq/L) 138 Potassium (3.4 - 5.0 mEq/L) 5.1 H Chloride (100 - 108 mEq/L) 111 H Carbon Dioxide (21 - 33 mEq/l) 20 L Anion Gap (0 - 20) 12 BUN (7 - 18 mg/dL) 71 H Creatinine (0.6 - 1.3 mg/dL) 1.8 H Glomerular Filtr Rate (90 - 95) 43.1 L Glucose (70 - 110 mg/dL) 244 H POC Glucose (70 - 110 MG/DL) 251 H 251 H Calcium (8.0 - 10.5 mg/dL) 7.3 L Phosphorus (2.5 - 4.9 MG/DL) 5.0 H Magnesium (1.80 - 2.40 mg/dL) 2.13 Total Creatine Kinase (46 - 171 Units/L) 27 L B-Natriuretic Peptide (0 - 100 PG/ML) 251.0 H Albumin (3.4 - 5.0 g/dL) 1.80 L Prealbumin (16.0 - 40.0 mg/dL) 16.7 09/21 09/21 09/21 1552 1437 1107 Chemistry POC Glucose (70 - 110 MG/DL) 170 H 167 H 162 H Laboratory Tests 09/23 435 Hematology WBC (4.5 - 11.0 x10 3/uL) 12.0 H RBC (4.00 - 5.60 x10 6/uL) 2.65 L Hgb (12.5 - 16.9 g/dL) 7.7 L Hct (37.5 - 50.7 %) 24.2 L MCV (81.0 - 99.0 fL) 91.3 MCH (27.0 - 33.0 pg) 29.1 MCHC (33.0 - 37.0 g/dL) 31.8 L RDW (11.5 - 14.5 %) 16.0 H Plt Count (150 - 400 x10 3/uL) 305 MPV (7.0 - 9.0 fL) 9.5 H Neut % (Auto) (56.0 - 77.0 %) 81.7 H Lymph % (Auto) (14.0 - 32.0 %) 11.3 L Boundary % (Auto) (4.8 - 9.0 %) 5.7 Eos % (Auto) (0.3 - 3.7 %) 0.2 L Baso % (Auto) (0.0 - 2.0 %) 0.0 Neut # (Auto) (2.0 - 7.6 x10 3/uL) 9.79 H Lymph # (Auto) (1.0 - 3.8 x10 3/uL) 1.35 Boundary # (Auto) (0.1 - 0.8 x10 3/uL) 0.68 Eos # (Auto) (0.0 - 0.2 x10 3/uL) 0.02 Baso # (Auto) (0.0 - 0.2 x10 3/uL) 0.00 Abs Immat Gran (auto) (0.00 - 0.03 x10 3/uL) 0. 13 H Add Manual Diff NO Immature Gran % (0.0 - 2.0 %) 1.1 Nucleated RBC % (0 - 0 %) 0.0 Nucleated RBCs # (Man) (0.0 - 0.1 x10 3/uL) 0.0 0 Laboratory Tests 09/22 09/22 0436 0436 Chemistry Magnesium (1.80 - 2.40 mg/dL) 2.13 B-Natriuretic Peptide (0 - 100 PG/ML) 251.0 H Diagnosis, Assessment Plan Consultants: cardiology, endocrinology, hospital ist, infectious disease, podiatry Free Text DxA P Notes Free Text DxA P Notes: Impression: 1. Debility 2. Infected right foot status post BKA 3. Bacteremia 4. Diabetes 5. Hypertension 6. Anemia 7. Acute Diastolic CHF 8. ERIKA 07/2022: Echocardiogram with normal LVEF, grade 1 diastolic dysfunction, mildly dilated LA, and no significant valvular abnormal ities Recommendation: Patient initially presented with DKA and sepsis. Diagnosed with right foot infection, underwent I D, now status post BKA. P athailey had persistent bacteremia with MRSA, underwent JIMENA with negativ e findings of endocarditis. Patient now transferred to [facility] for physical therapy. Known cardiac history of hypertension and hyperlipide renetta. Vital signs stable. Echocardiogram with normal LVEF, grade 1 diastolic dysfunction, mildly dila carlos LA, and no significant valvular abnormalities. Continue to monitor bloo d pressure trend. Continue wound care and IV antibiotic therapy. Continue P T/OT. Supportive care. 09/04: Patient complaining of shortness of breath, abdominal distention and lower extremity edema. Renal function and electrolytes stable. Will give one-time dose of IV Lasix 40 mg. Blood pressure stable. P ending abdominal x-ray. Monitor intake and output. Check BMP in the morn ing. Supportive care. Plan of care discussed with patient, RN and Dr. Parham. 09/05: Patient responded well to IV Lasix , good urine output and improvement in shortness of breath. Chest x-ray ordered . Currently on Lasix 20 mg p.o. daily. Continue monitor renal function and electrolyte s. Pending lower extremity Doppler for lower extremity edema. Continue PT/O T. Supportive care. Plan of care discussed with patient, RN and Dr. Parham. 09/08: Blood pressure has been elevated, started on Coreg 3.125 mg twice daily. Continue monitor blood pressure trend and adjust medication as needed. Still having left lower extremity edema, venous Dopple r negative for DVT. continue gentle diuresis with Lasix 20 mg p.o. daily. Rec ommend Oralia wrap. Patient remains anemic, plan for EGD/colonoscopy today. Supportive care. Plan of care discussed with patient, family, RN and Dr. Parham . 09/09: Patient doing well status post EGD /colonoscopy, negative findings for GI bleed. Blood pressure improving, increased on Co reg to 12.5 mg twice daily. Elevated creatinine noted, nephrology following. No new cardiac complaint. Continue wound care. Continue PT/OT. Supportive care. Plan of care discussed with patient, RN and Dr. Parham. 09/10: Blood pressure remained stable on current regimen of Coreg. Patient continue to have left lower extremity edema. Cur rently on Lasix 20 mg daily. Creatinine 1.9 today, continue to monito r. Patient's albumin level was 1.3, it is possible that patient's lower extremity edema could be related to hypoalbuminemia leading to third spacing. Contin ue PT/OT. Supportive care. Plan of care discussed with patient, RN and Dr. Parham. 09/11: Patient doing well from cardiac standpoint . Blood pressure well controlled. Improvement in lower extremity edema with elevating leg while in bed. Creatinine 2.0 today. Denies shortness of b reath. Will hold diuretic for now and monitor renal function. Supportive care. Plan of care discussed with patient, RN and Dr. Parham. 09/12: Creatinine remains elevated at 2.4 today, antibiotic regimen also being adjusted. Patient still with lower extremity rose ma and rales on physical examination. Will check chest x-ray and limited echocardiogram for further evaluation. Check BNP. Continue hold diuretic fo r now. Supportive care. Plan of care discussed with patient, RN and Dr. Parham . 09/15: Repeat echocardiogram showed LVEF of 55 to 60%, no regional wall motion abnormalities, left ventricu lar diastolic function parameters are indeterminate, mildly dilated LA, and no pericardial effusion. BNP elevated 297. Continue to hold diuretic due to Elevate d creatinine, nephrology following and may consider renal biopsy. Continue to monitor fluid volume s tatus. Overall improvement in lower extremity with Oralia wrap. Continue physical therapy. Supportive care. Plan of care discussed with patient, RN and Dr. Parham. 09/16: Blood pressure slightly elevated, started on hydralazine 25 mg every 8 hours. Continue carvedilol monitor blood pressur e trend. Cr. 2.7 today, continue monitor. Tolerating physical therapy. Euvolemic by physical examination. Supportive care. Plan of care discu ssed with patient, RN and Dr. Parham. 09/17: Blood pressure remains elevated, likely re lated to steroid therapy. Hydralazine increased to 50 mg 3 times daily. Ne phrology managing diuretic therapy. Continue monitor renal function and pako ctrolytes. Improvement in lower extremity swelling. Patient denies chest p ain or shortness of breath. Tolerating PT/OT. Supportive care. Plan of care discussed with patient, RN and Dr. Parham. 09/18: Blood pressure remains elevated du e to steroid therapy. Continue monitor blood pressure trend, hydralazine increa sed to 75 mg 3 times daily. Responding to diuretic regimen with Lasix, good urine outpu t. Creatinine improving, 2.2 today. Continue to monitor fluid volume status. Continue physical therapy. Supportive care. Plan of care discussed with lori hart RN and Dr. Parham. 09/19: Blood pressure improving, continue hydrala zine and carvedilol. Overall improvement in fluid volume status. No n ew cardiac complaint. Continue steroid taper per nephrology. Progressing in therapy. Di scharge planning. Supportive care. Plan of care discussed with patient, RN an d Dr. Parham. 09/20: Patient doing much bet ter since started on steroid therapy, creatinine is slowly improving, blood pressure overall improvi ng, nephrology is adjusting antihypertensive medication regimen, diuretic re gimen per nephrology, overall stable cardiac status, discussed with patient an d . 09/21: Creatinine now below 2, at 1.9, blood pres sure better controlled with carvedilol and hydralazine, fluid status is improving, continue diuretic regimen per nephrology, supportive care, will follow. 09/22: Patient remains from c ardiac standpoint. Blood pressure elevated, started on amlodipine 10 mg daily. Continue steroid ther apy and diuretic per nephrology. Creatinine 1.8 today. Tolerating phy sical therapy. Discharge planning. Supportive care. Plan of care discusse d with patient, RN and Dr. Parham. Gianni Parham 09/27/22 1304: Diagnosis, Assessment Plan Additional comments: Agree with above assessment and plan as document ed by nurse practitioner, continue current management, will follow. Electronically Signed by Rohit Benitez NP on 0 09/22/22 at 1841 at 2788 RPT #:[id number] END OF REPORT 2022-09-22 09:57:00-00:00 [facility] Progress Note REPORT#:[id number] REPORT STATUS: Signed DATE:09/22/22 TIME: 956 PATIENT: KARMA ROWLAND UNIT #: [id number] ROOM/BED: 53-1 : 63 AGE: 56 SEX: M ATTEND: Fredy Vences MD ADM AUTHOR: Mj Vences MD * ALL edits or amendments must be made on the [employer]/computer document * Subjective Chief complaint: Rehab follow-up Fall last night without injury States edema improving Eating 75-100% at bedside + BM Denies MCBRIDE/N/V/D/CP 14 systems reviewed and neg. except that above. History of present illness: 56 yo HAM with long h/o DM, and HTN who was admitted for fever, flulike symptoms and altered mental status on 08/18. He was doing well until about 3 days prior to admission when he noted blister to have formed o n the dorsum of his foot. His foot started progressively getting more swollen and the blisters started enlarging and extending to his lateral f oot and ankle. He started feeling weak and nauseated. He was noted to have altered mentation and was brought to our ER. He was noted to be in DKA with Blood sugars grea ter than 600. He was seen by podiatry and surgery for BLE wounds and infectio n. He was treated in ICU for sepsis and DKA. He underwent incisional and excisional debridement of right foot and right ankle by podiatry. Patient also found to have prostate abscess underwent transrectal ultrasound aspiration of a bscess and transurethral resection of prostate and unroofing of abscess b y urology Dr. Bass. Endocrinology treated the DKA and blood sugars m uch improved. Patient's right foot was not salvageable and patient und erwent right BKA by Dr. LEROY on 08/28. Patient blood cultures showe d MRSA. Patient continued on antibiotics as per ID. MRI of the pelvis and foot completed. Patient r equired multiple PRBCs for anemia. Patient was found to have a possible small hematoma of the left calf on ultrasound. He complains of pain and swelling of the left ankle. Patient hemodynamically stable and plans are to be transferred to stepdown unit. He is on heparin subcu for VTE. Af ter surgery he is now being mobilized by PT and OT. He is wearing a [employer] orthotic for right knee /BKA protection. Prior to admission the patient was independent living in a single-story house with his spouse with a few steps up to front and back doo r. 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 is at bedside. Patient denies nausea, vomiting, fever, chills, chest pain, shortness of breath with diz ziness. He is requiring IV Dilaudid for pain control. Mental status back to baseline. Pt is progressing slowly with therapy d/t weakness and pain, self care deficit, decreased endurance and balance, and decreased functional mobility. Pt requiring acute inpt rehab for multidiscipli nary team of nursing, therapy, and physicians. Pt is willing and able to partici- kathleen in 3 hr/day inpt rehab to d/c home safely. Pt' s prior level of function was independent. Objective General VS: Vital Signs: Date Time Temp Pulse Resp B/P B/P Pulse O2 O2 F low FiO2 Mean Ox Delivery Rate 09/22 0708 97.9 89 18 158/80 106.1 97 Room air 09/22 0036 97.3 81 14 155/76 102.5 97 Room air 09/21 2108 86 169/86 114.0 98 Room air 09/21 2106 87 171/86 114.5 98 Room air 09/21 2045 98.1 90 20 179/88 118.4 98 Room air 09/21 1554 97.5 80 18 169/83 111.6 97 PATIENT WEIGHT: Weight (lb): 167 Weight (oz): 12.35 Weight (kg): 76.100 Medications: Active Meds + DC'd Last 24 Hrs Amlodipine Besylate (NORVASC) 10 MG DAILY PO Prednisone (predniSONE) 50 MG C BK PO Hydralazine HCl (APRESOLINE) 100 MG Q8HR PO Insulin Glargine (Semglee) 19 UNIT BEDTIME SUBQ Daptomycin (CUBICIN 500MG) 500 MG Q24H IV (DC) Sodium Chloride (SODIUM CHLORIDE 0.9%) 50 ML Insulin Human Lispro (HUMALOG) 10 UNIT AC SUBQ Meropenem (MEROPENEM) 500 MG Q8H IV Sterile Water (WATER FOR INJECTION) 10 ML Carvedilol (COREG) 25 MG C BK DIN PO Gabapentin (NEURONTIN) 100 MG Q8HR PO Oxycodone/Acetaminophen (PERCOCET 5/325MG TAB) 2 TAB Q4H PRN PRN PO Folic Acid (FOLIC ACID) 2 MG DAILY PO Multivitamins (TAB-A-MOHAN) 1 TAB DAILY PO Furosemide (LASIX 20MG INJ) 20 MG BLOOD-DOSE BET WEEN IV (CKD) Sodium Chloride (SODIUM CHLORIDE) 10 ML ASDIR IV Pantoprazole Sodium (PROTONIX) 40 MG Q12HR IV Polyethylene Glycol (MIRALAX) 17 GM DAILY PO Sennosides (Senna Lax 8.6 MG TABLET) 8.6 MG MADALYN Y PO Sodium Chloride (SODIUM CHLORIDE) 10 ML ASDIR NV N IV Amitriptyline HCl (ELAVIL) 25 MG BEDTIME PO Zinc Oxide (ZINC OXIDE 30 GM OINTMENT) 1 APPLIC DAILY TOPICAL Sterile Water (WATER FOR IRRIGATION) DRESSING CH GELACIO ASDIR PRN IRR Insulin Human Lispro (HUMALOG) 0 AC HS SUBQ Dextrose/Water (DEXTROSE 10% IN WATER) 125 ML DIR PRN IV (CKD) Dextrose/Water (DEXTROSE 10% IN WATER) 250 ML DIR PRN IV (CKD) Glucagon (GLUCAGON) 1 MG ASDIR PRN IM Lidocaine (LIDODERM) 1 PATCH DAILY TOPICAL Acetaminophen (TYLENOL) 650 MG Q6H PRN PRN PO Bisacodyl (DULCOLAX) 10 MG DAILY PRN PRN RECTAL Docusate Sodium (COLACE) 100 MG Q12H PRN PRN PO Hydralazine HCl (APRESOLINE) 10 MG Q6H PRN PRN I V Ondansetron HCl (ZOFRAN) 4 MG Q6H PRN PRN IV Physical Exam General appearance: alert, awake, no acute distr ess Psych: alert, normal affect, oriented x 3 HEENT: anicteric, sclera clear Neck: supple, no JVD Cardiovascular: S1/S2, no murmur Respiratory: aerating well, clear bilaterally Abdomen: bowel sounds present, non-distended, so ft, non-tender Skin: no rash, R BKA HEALING. 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 3, CNII-XII intact Results Findings/Data: Laboratory Tests: 09/22/30 0617 0436 0436 7801 [id number] Chemistry Sodium (134 - 147 mEq/L) 138 Potassium (3.4 - 5.0 mEq/L) 5.1 H Chloride (100 - 108 mEq/L) 111 H Carbon Dioxide (21 - 33 mEq/l) 20 L Anion Gap (0 - 20) 12 BUN (7 - 18 mg/dL) 71 H Creatinine (0.6 - 1.3 mg/dL) 1.8 H Glomerular Filtr Rate (90 - 95) 43.1 L Glucose (70 - 110 mg/dL) 244 H POC Glucose (70 - 110 MG/DL) 251 H 251 H 170 H Calcium (8.0 - 10.5 mg/dL) 7.3 L Phosphorus (2.5 - 4.9 MG/DL) 5.0 H Magnesium (1.80 - 2.40 mg/dL) 2.13 Total Creatine Kinase (46 - 171 Units/L) 27 L B-Natriuretic Peptide (0 - 100 PG/ML) 251.0 H Albumin (3.4 - 5.0 g/dL) 1.80 L Prealbumin (16.0 - 40.0 mg/dL) 16.7 Hematology WBC (4.5 - 11.0 x10 3/uL) 12.0 H RBC (4.00 - 5.60 x10 6/uL) 2.65 L Hgb (12.5 - 16.9 g/dL) 7.7 L Hct (37.5 - 50.7 %) 24.2 L MCV (81.0 - 99.0 fL) 91.3 MCH (27.0 - 33.0 pg) 29.1 MCHC (33.0 - 37.0 g/dL) 31.8 L RDW (11.5 - 14.5 %) 16.0 H Plt Count (150 - 400 x10 3/uL) 305 MPV (7.0 - 9.0 fL) 9.5 H Neut % (Auto) (56.0 - 77.0 %) 81.7 H Lymph % (Auto) (14.0 - 32.0 %) 11.3 L Boundary % (Auto) (4.8 - 9.0 %) 5.7 Eos % (Auto) (0.3 - 3.7 %) 0.2 L Baso % (Auto) (0.0 - 2.0 %) 0.0 Neut # (Auto) (2.0 - 7.6 x10 3/uL) 9.79 H Lymph # (Auto) (1.0 - 3.8 x10 3/uL) 1.35 Boundary # (Auto) (0.1 - 0.8 x10 3/uL) 0.68 Eos # (Auto) (0.0 - 0.2 x10 3/uL) 0.02 Baso # (Auto) (0.0 - 0.2 x10 3/uL) 0.00 Abs Immat Gran (auto) (0.00 - 0.03 0.13 H x10 3/uL) Add Manual Diff NO Immature Gran % (0.0 - 2.0 %) 1.1 Nucleated RBC % (0 - 0 %) 0.0 Nucleated RBCs # (Man) (0.0 - 0.1 0.00 x10 3/uL) 09/21 09/21 1437 1107 Chemistry POC Glucose (70 - 110 MG/DL) 167 H 162 H Diagnosis, Assessment Plan Free Text A P: Assessment: 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 Leroy Significant impairment in self-care, ADLs and fu nctional mobility Impaired mobility and gait Acute postoperative pain right BKA Diabetic polyneuropathy DKA, DM 2, poorly controlled, A1c greater than 1 4 PAD MRSA bacteremia/sepsis-treated on acute ERIKA Severe hyponatremia-resolved HTN Acute on chronic anemia requiring multiple trans fusions, possible GI bleed Left calf hematoma Edema and clinical arthritis left ankle Early decubitus to left heel/DTI dorsal left mid foot Prostatic abscess 08/26: S/p transrectal ultrasound aspiration of ab scess and transurethral resection of prostate and unroofing of abscess 09/12: Echo: EF 55-59%, grade 1 diastolic dysfunc tion 09/02: JIMENA negative for vegetation MRSA OF NARES 09/08:s/p EGD and colonoscopy. EGD showed mild ga stritis. Colonoscopy showed rectal polyp that was resect ed by snare (tubular adenoma)-repeat colonoscopy in 5 years Plan: -PLOF: Independent with transfers and gait -Amputee rehab program -Continue PT and OT -24/7 rehabilitation nursing care. -Case management for safe discharge planning. -Decubitus prevention -Early decubitus to left heel/DTI dorsal left mi dfoot-zinc oxide to the foot, foam, offloading, podiatry managing -DVT prophylaxis-SCD left leg -Strict fall and safety precautions -Work on bed mobility, transfer training, ADLs, pre-gait and gait exercises -Increase endurance and strength -Monitor pain with therapies -OOB to chair -Monitor p.o. intake and nutrition, albumin 1.3, 1.8, prealbumin less than 5, 16.7 dietary consultation, protein supplements t o promote healing -Diabetes-A1c 14, tight glycemia control- endocr ine on board, insulin adjustments -Endocrinology, ID, podiatry, cardiology, IM con sulted -Pain management adjusting pain medications -Anemia, patient required multiple units of PRBC s on acute, FOBT positive -IV Protonix-consult GI-seri al H H-no evidence of gross bleeding-discussed with Dr. Trinidad -Constipation-abdominal lsavrxqs-[id number]-CW S enokot and MiraLAX, DSP -MRSA OF NARES on Bactroban protocol -LLE edema-venous Doppler wi th complex heterogeneous hypoechoic fluid collection in the left calf region measuring 8.4, 2.8, 2.5 cm suggestive of hematoma. On low-dose Lasix. Oralia wrap LLE -LE edema could be related to hypoalbuminemia le ading to third spacing-edema improving -Generalized edema-some shor tness of breath and abdominal distention-cardiology gave a dose of IV Lasix-monitor urine output, da jaz weights-SOB resolved -09/05-venous Doppler of LLE-negative for DVT-Oralia wrap dressing and elevation -Anemia-hemoglobin 8.3, 7.7, 8.2, 7.6, 8, 7.7 transfused 2 units of PRBC on 09/05 -09/08: s/p EGD and colonoscopy. EGD showed mild gastritis. Colonoscopy showed rectal polyp that was resected by snare. Anemia likely secondary to chronic kidney disease. Consult renal. -Pathology of polyp came back as tubular adenoma . recommend repeating colonoscopy in 5 years as per GI -Consider video capsule endoscopy as outpt if ev idence of dropping H/H -Renal ultrasound negative -09/22/2022 laboratory this mo rning showed sodium 138, potassium 5.1, CO2 20, BUN 71, creatinine 1.8 down from 1.9 continues to im prove, continue prednisone, hemoglobin 7.7, platelet 305 , blood count 12, blood pressure still elevated will add Norvasc 10 mg p.o. daily-as per renal -MRSA bacteremia and prostatic abscess-W BC 12-monitor on Merrem and Daptomycin til 09/24 as per ID -Lasix as per nephrology -Completed Solu-Medrol on prednisone -09/12: Echo-EF 55-60%, indet erminate diastolic function parameters as per cardio -BP elevated. continue to adjust meds -BS better but likely to inc rease with re-initiation of steroids x3 days started by Nephrology for AIN -Endo adjusting insulin -Car transfer training 09/23 -Labs reviewed-hemoglobin st able at 7.7-GI recommends decrease checking H H and video capsule endoscopy as outpatient -Nutritional indices improved -Right GAR-eypdwjv-fykrpcya resolved, dressings changed today-no bleeding after heparin discontinued, SCD to left leg -Advance therapies as tolerated-discusse d treatment plan with patient and -Patient progressing with therapies and is contact-guard assist with transfers for control and safety, wheelchair mobility 40 f eet modified independent. Progress: PERFORMING MOVEO AT 8% INCLINE PERFORM ING 2 MIN SQUATS X 4 HAVING GOOD CONTROL UNTIL ABOUT 45-15 SEC LEFT IN SET HAVING LIMITED ENDURANCE. PERFORMING SIT TO STANDS IN // BARS X 5 WITH SBA, NEEDING CUES TO TAKE HIS TIME, REST BETWEEN ATTEMPTS D/T LIMITED ENDURANCE. ATTEMPTING HEEL RAISES IN // BARS 3 X 10-15 WITH LIMITED HEEL LIFT OFF AT TH IS TIME. PM R Please see team note. Plan and goals discussed with the patient. I agree with the teams finding ELOS- [09/24] on IV antibiotics until 09/24 DC-Home with -Home health DME-bedside commode, sliding board, wheelchair, drop arm bedside commode Total time 34 minutes greater than 50% of the ti me spent examining patient, discussing with patient about BKA site h ealing, improvement in renal function, on steroids, medical issues, anemia, discharge plans, rehab plan of care, goals, therapies, progress, labs, medications. EMR and MAR is reviewed. All questions answered Orders: Procedure Date/time Status OT FUNCTIONAL TRN 15 MIN 09/22 UNK Complete OT EXERCISE 15MIN 09/22 UNK Complete Consultants: cardiology, endocrinology, hospital ist, infectious disease, podiatry Rehab attestation: Face to face exam completed. Treatment plan disc ussed with patient. Meets continued stay criteria. Agree with interdiscipl inary treatment plan. at 1527 RPT #:[id number] END OF REPORT 2022-09-22 07:30:00-00:[address] [facility] ([facility] Nephrology Progress Note REPORT#:[id number] REPORT STATUS: Signed DATE:09/22/22 TIME: 729 PATIENT: KARMA ROWLAND UNIT #: [id number] ROOM/BED: [place] [address] : 63 AGE: 56 SEX: M ATTEND: Fredy Vences MD ADM AUTHOR: Barrera Ramírez MD * ALL edits or amendments must be made on the [employer]/computer document * Subjective Chief complaint: Infected foot HPI: Patient seen and evaluated on 09/09/2022, note [facility], records reviewed and orders placed on 09/08/2022, 56-year-old male with history of diabetes mellitus type 2, hypertension and per ipheral vascular disease who was initially admitted to acute care with altered mental status and rig ht foot infection/gangrene, 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 Patient had persistent anemia requiring blood transfusion. H is fecal occult blood was positive and his creatinine was 1.2 and increase d to 1.4 today, laboratories today showed hemoglobin 8.5, platelet 231, blood count 9.1, sodium 135, potassium 4.6, CO2 22, BUN 22, creatinin e 1.4. Renal consult was requested for evaluation management of pako vated BUN and creatinine and if his decreased GFR is contributing to his anemia. Patient reports: Yes: complaints. Comments: Patient seen and evaluated, HPI no change from i nitial, feels okay. Review of Systems Constitutional: Reports: fatigue. Denies: chills, fever. Skin: Denies: abrasion, bruising. Allergy/Immun: Denies: hives, itching. Eyes: Denies: redness, discharge. ENT: Denies: ear drainage, ear ringing. Respiratory: Denies: hemoptysis, SOB. Cardiovascular: Denies: chest pain. Objective General VS/I O: Vital Signs: Date Time Temp Pulse Resp B/P B/P Pulse O2 O2 F low FiO2 Mean Ox Delivery Rate 09/22 0608 36.6 89 18 158/80 106.1 97 Room air 09/22 0036 36.3 81 14 155/76 102.5 97 Room air 09/21 2108 86 169/86 114.0 98 Room air 09/21 2106 87 171/86 114.5 98 Room air 09/21 2045 36.7 90 20 179/88 118.4 98 Room air 09/21 1554 36.4 80 18 169/83 111.6 97 24 hour I O ending at 0700: 09/22 0700 09/21 1900 Intake Total Output Total 2100 Balance -2100 Number 1 Bowel Movements Number 0 Incontinent Voids Number Voids 0 Output, Urine 2100 PATIENT WEIGHT: Weight (lb): 167 Weight (oz): 12.35 Weight (kg): 76.100 Medications Active Meds + DC'd Last 24 Hrs Prednisone (predniSONE) 50 MG C BK PO Hydralazine HCl (APRESOLINE) 100 MG Q8HR PO Insulin Glargine (Semglee) 19 UNIT BEDTIME SUBQ Daptomycin (CUBICIN 500MG) 500 MG Q24H IV (DC) Sodium Chloride (SODIUM CHLORIDE 0.9%) 50 ML Hydralazine HCl (APRESOLINE) 75 MG Q8HR PO (DC) Insulin Human Lispro (HUMALOG) 10 UNIT AC SUBQ Meropenem (MEROPENEM) 500 MG Q8H IV Sterile Water (WATER FOR INJECTION) 10 ML Carvedilol (COREG) 25 MG C BK DIN PO Gabapentin (NEURONTIN) 100 MG Q8HR PO Oxycodone/Acetaminophen (PERCOCET 5/325MG TAB) 2 TAB Q4H PRN PRN PO Folic Acid (FOLIC ACID) 2 MG DAILY PO Multivitamins (TAB-A-MOHAN) 1 TAB DAILY PO Furosemide (LASIX 20MG INJ) 20 MG BLOOD-DOSE BET WEEN IV (CKD) Sodium Chloride (SODIUM CHLORIDE) 10 ML ASDIR IV Pantoprazole Sodium (PROTONIX) 40 MG Q12HR IV Polyethylene Glycol (MIRALAX) 17 GM DAILY PO Sennosides (Senna Lax 8.6 MG TABLET) 8.6 MG MADALYN Y PO Sodium Chloride (SODIUM CHLORIDE) 10 ML ASDIR NV N IV Amitriptyline HCl (ELAVIL) 25 MG BEDTIME PO Zinc Oxide (ZINC OXIDE 30 GM OINTMENT) 1 APPLIC DAILY TOPICAL Sterile Water (WATER FOR IRRIGATION) DRESSING CH GELACIO ASDIR PRN IRR Insulin Human Lispro (HUMALOG) 0 AC HS SUBQ Dextrose/Water (DEXTROSE 10% IN WATER) 125 ML DIR PRN IV (CKD) Dextrose/Water (DEXTROSE 10% IN WATER) 250 ML DIR PRN IV (CKD) Glucagon (GLUCAGON) 1 MG ASDIR PRN IM Lidocaine (LIDODERM) 1 PATCH DAILY TOPICAL Acetaminophen (TYLENOL) 650 MG Q6H PRN PRN PO Bisacodyl (DULCOLAX) 10 MG DAILY PRN PRN RECTAL Docusate Sodium (COLACE) 100 MG Q12H PRN PRN PO Hydralazine HCl (APRESOLINE) 10 MG Q6H PRN PRN I V Ondansetron HCl (ZOFRAN) 4 MG Q6H PRN PRN IV Physical Exam General appearance: alert, no acute distress Head/eyes: atraumatic, normocephalic ENT: normal nose Neck: non-tender, supple/no meningismus Cardiovascular: normal heart sounds, no rub Respiratory: aerating well, symmetric expansion Abdomen: non-tender, soft Genitourinary: no flank pain Extremities: non-tender, no edema Musculoskeletal: no CVA tenderness, no tendernes s 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, 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 Considered stroke alert: no Skin: dry, intact Results Findings/Data: Laboratory Tests 09/22 09/22 09/21 09/21 09/21 0617 0436 2047 1552 1437 Chemistry Sodium (134 - 147 mEq/L) 138 Potassium (3.4 - 5.0 mEq/L) 5.1 H Chloride (100 - 108 mEq/L) 111 H Carbon Dioxide (21 - 33 mEq/l) 20 L Anion Gap (0 - 20) 12 BUN (7 - 18 mg/dL) 71 H Creatinine (0.6 - 1.3 mg/dL) 1.8 H Glomerular Filtr Rate (90 - 95) 43.1 L Glucose (70 - 110 mg/dL) 244 H POC Glucose (70 - 110 MG/DL) 251 H 251 H 170 H 167 H Calcium (8.0 - 10.5 mg/dL) 7.3 L Phosphorus (2.5 - 4.9 MG/DL) 5.0 H Magnesium (1.80 - 2.40 mg/dL) 2.13 Total Creatine Kinase (46 - 171 27 L Units/L) Albumin (3.4 - 5.0 g/dL) 1.80 L Prealbumin (16.0 - 40.0 mg/dL) 16.7 09/21 09/21 09/21 09/20 09/20 1107 0530 0500 1958 1555 Chemistry Sodium (134 - 147 mEq/L) 137 Potassium (3.4 - 5.0 mEq/L) 4.6 Chloride (100 - 108 mEq/L) 107 Carbon Dioxide (21 - 33 mEq/l) 22 Anion Gap (0 - 20) 13 BUN (7 - 18 mg/dL) 75 H Creatinine (0.6 - 1.3 mg/dL) 1.9 H Glomerular Filtr Rate (90 - 95) 40.4 L Glucose (70 - 110 mg/dL) 148 H POC Glucose (70 - 110 MG/DL) 162 H 155 H 239 H 159 H Calcium (8.0 - 10.5 mg/dL) 7.5 L Phosphorus (2.5 - 4.9 MG/DL) 5.0 H Magnesium (1.80 - 2.40 mg/dL) 2.06 09/20 09/20 09/20 09/20 09/19 1140 0922 0505 6956 1921 Chemistry Sodium (134 - 147 mEq/L) 136 Potassium (3.4 - 5.0 mEq/L) 4.2 Chloride (100 - 108 mEq/L) 107 Carbon Dioxide (21 - 33 mEq/l) 21 Anion Gap (0 - 20) 12 BUN (7 - 18 mg/dL) 76 H Creatinine (0.6 - 1.3 mg/dL) 2.2 H Glomerular Filtr Rate (90 - 95) 33.9 L Glucose (70 - 110 mg/dL) 301 H POC Glucose (70 - 110 MG/DL) 155 H 299 H 277 H 236 H Calcium (8.0 - 10.5 mg/dL) 7.4 L Phosphorus (2.5 - 4.9 MG/DL) 5.4 H Magnesium (1.80 - 2.40 mg/dL) 2.05 09/19 09/19 1544 1133 Chemistry POC Glucose (70 - 110 MG/DL) 224 H 96 Laboratory Tests 09/22 09/21 09/20 0436 0500 0505 Hematology WBC (4.5 - 11.0 x10 3/uL) 12.0 H 13.0 H 12.3 H RBC (4.00 - 5.60 x10 6/uL) 2.65 L 2.69 L 2.66 L Hgb (12.5 - 16.9 g/dL) 7.7 L 7.6 L 7.6 L Hct (37.5 - 50.7 %) 24.2 L 23.9 L 23.9 L MCV (81.0 - 99.0 fL) 91.3 88.8 89.8 MCH (27.0 - 33.0 pg) 29.1 28.3 28.6 MCHC (33.0 - 37.0 g/dL) 31.8 L 31.8 L 31.8 L RDW (11.5 - 14.5 %) 16.0 H 15.7 H 15.3 H Plt Count (150 - 400 x10 3/uL) 305 296 302 MPV (7.0 - 9.0 fL) 9.5 H 9.8 H 9.2 H Neut % (Auto) (56.0 - 77.0 %) 81.7 H 82.2 H 79. 7 H Lymph % (Auto) (14.0 - 32.0 %) 11.3 L 11.3 L 13 .0 L Boundary % (Auto) (4.8 - 9.0 %) 5.7 5.3 6.2 Eos % (Auto) (0.3 - 3.7 %) 0.2 L 0.2 L 0.2 L Baso % (Auto) (0.0 - 2.0 %) 0.0 0.1 0.1 Neut # (Auto) (2.0 - 7.6 x10 3/uL) 9.79 H 10.7 0 H 9.84 H Lymph # (Auto) (1.0 - 3.8 x10 3/uL) 1.35 1.47 1 .60 Boundary # (Auto) (0.1 - 0.8 x10 3/uL) 0.68 0.69 0. 76 Eos # (Auto) (0.0 - 0.2 x10 3/uL) 0.02 0.03 0.0 3 Baso # (Auto) (0.0 - 0.2 x10 3/uL) 0.00 0.01 0. 01 Abs Immat Gran (auto) (0.00 - 0.03 x10 3/uL) 0. 13 H 0.12 H 0.10 H Add Manual Diff NO NO NO Immature Gran % (0.0 - 2.0 %) 1.1 0.9 0.8 Nucleated RBC % (0 - 0 %) 0.0 0.0 0.0 Nucleated RBCs # (Man) (0.0 - 0.1 x10 3/uL) 0.0 0 0.00 0.00 Laboratory Tests 09/22 09/22 09/21 09/21 09/21 0617 0436 2047 1552 1437 Chemistry Sodium (134 - 147 mEq/L) 138 Potassium (3.4 - 5.0 mEq/L) 5.1 H Chloride (100 - 108 mEq/L) 111 H Carbon Dioxide (21 - 33 mEq/l) 20 L Anion Gap (0 - 20) 12 BUN (7 - 18 mg/dL) 71 H Creatinine (0.6 - 1.3 mg/dL) 1.8 H Glomerular Filtr Rate (90 - 95) 43.1 L Glucose (70 - 110 mg/dL) 244 H POC Glucose (70 - 110 MG/DL) 251 H 251 H 170 H 167 H Calcium (8.0 - 10.5 mg/dL) 7.3 L Phosphorus (2.5 - 4.9 MG/DL) 5.0 H Magnesium (1.80 - 2.40 mg/dL) 2.13 Total Creatine Kinase (46 - 171 27 L Units/L) Albumin (3.4 - 5.0 g/dL) 1.80 L Prealbumin (16.0 - 40.0 mg/dL) 16.7 09/21 1107 Chemistry POC Glucose (70 - 110 MG/DL) 162 H Laboratory Tests 09/22 0436 Hematology WBC (4.5 - 11.0 x10 3/uL) 12.0 H RBC (4.00 - 5.60 x10 6/uL) 2.65 L Hgb (12.5 - 16.9 g/dL) 7.7 L Hct (37.5 - 50.7 %) 24.2 L MCV (81.0 - 99.0 fL) 91.3 MCH (27.0 - 33.0 pg) 29.1 MCHC (33.0 - 37.0 g/dL) 31.8 L RDW (11.5 - 14.5 %) 16.0 H Plt Count (150 - 400 x10 3/uL) 305 MPV (7.0 - 9.0 fL) 9.5 H Neut % (Auto) (56.0 - 77.0 %) 81.7 H Lymph % (Auto) (14.0 - 32.0 %) 11.3 L Boundary % (Auto) (4.8 - 9.0 %) 5.7 Eos % (Auto) (0.3 - 3.7 %) 0.2 L Baso % (Auto) (0.0 - 2.0 %) 0.0 Neut # (Auto) (2.0 - 7.6 x10 3/uL) 9.79 H Lymph # (Auto) (1.0 - 3.8 x10 3/uL) 1.35 Boundary # (Auto) (0.1 - 0.8 x10 3/uL) 0.68 Eos # (Auto) (0.0 - 0.2 x10 3/uL) 0.02 Baso # (Auto) (0.0 - 0.2 x10 3/uL) 0.00 Abs Immat Gran (auto) (0.00 - 0.03 x10 3/uL) 0. 13 H Add Manual Diff NO Immature Gran % (0.0 - 2.0 %) 1.1 Nucleated RBC % (0 - 0 %) 0.0 Nucleated RBCs # (Man) (0.0 - 0.1 x10 3/uL) 0.0 0 Diagnosis, Assessment Plan Free Text A P: Patient seen and evaluated, discussed with care team, images and laboratories reviewed. Diabetes mellitus: Insulin: Monitor bloo d sugar closely and adjust medications as needed, followed by endocrinology. Hypertension: Blood pressure is not well controlled, increase Coreg to 12.5 mg p.o. 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 We will check serum immu nofixation. Acute kidney injury: We will check renal bladder ultrasound, check postvoid residual, check urine protein creatinine ratio Hypomagnesemia: We will supplement 09/10/2022 laboratory this mo rning showed sodium 135, potassium 4.2, CO2 21, BUN 25, creatinine 1.9 continues to worsen, etiology unclear, however his development some eosinophili a not sure if he is developing AIN, suggest changing cefepime to a different class of antibiotic if p ossible, will check renal bladder ultrasound 09/11/2022 laboratory this mo rning showed sodium 134, potassium 4.3, CO2 22, BUN 26, creatinine 2 up from 1.9, hopefully creatini ne is plateauing, renal ultrasound negative. 09/12/2022 laboratory this mo rning showed sodium 134, potassium 4.2, CO2 20, BUN 31, creatinine 2.4 continues to worsen, discussed with ID, AIN is probably the etiology of the unexplained deterioration of his renal function, antibiotics to be adjusted by infectious disease, will give Solu-Medrol 125 mg IV daily for 3 days. Significant lower extremity edema, will st art Lasix 20 mg p.o. twice daily. 23: pt was seen and examined. Very thirsty. serum creatinine is worsening today. Vancomycin was stopped yesterday and Solu medrol was started. Mild hypovolemic hyponatremia. Will DC lasix and monitor his renal functions. BP is well controlled. 23: pt was seen and exa mined. Feels better but still thirsty. I stopped his lasix. will start NS at 75 c c for one Leter only. serum creatinine is improving. Received three doses of Solu Medrol a well. BP i s on the higher side, likely secondary to steroids. will monitor for now. mild hypovelmic hyponatremia. also could be secondary to hyperglycemia. 09/15/2022 we will give additional dose of Solu-M edrol 125 mg IV today, laboratory this morning show ed sodium 132, potassium 4.7, CO2 17, chloride 105, BUN 38, creatinine 2.9, glucose 312, hem oglobin 8.2, platelet 341, blood count 8.7, needs better blood sugar control, if creati nine does not start improving the next couple days will plan for kidney biopsy 09/16/2022 laboratory this mo rning showed sodium 135, potassium 4.5, CO2 20, BUN 60, creatinine 2.7, better down from 2.9, hemogl obin 7.6, platelet 360, blood count 9.5, will give prednisone 80 mg p.o. today , blood pressure is elevated, will add hydralazine 25 mg p .o. 3 times daily, scrotal and LE swelling will give Lasix 40 mg IV x 3 09/17/2022 blood pressure sti ll elevated, will increase hydralazine to 50 mg p.o. 3 times daily, will give 80 mg of prednisone today, urine output with Lasix 4125 , laboratory this morning showed sodium 136, pot assium 4.5, CO2 21, BUN 66, creatinine 2.4 down from 2.7, will give 3 more doses of IV Lasix 40 mg every 8 hours 09/18/2022 laboratory this mo rning showed sodium 138, potassium 4.1, CO2 21, BUN 66, creatinine 2.2 continues to improve, urine o utput 2.7 L, hemoglobin 7.6, platelet 341, blood count 10.6, will give Lasix 40 mg IV every 8 for 3 doses, start prednisone 60 mg p.o. daily for 3 days, increase hydralazine to 75 mg p.o. 3 times daily. 09/19/2022 blood pressure better, sodium 139, pot assium 3.8, CO2 22, BUN 72 up from 66, creatinine 2.3 up from 2.2, will hold o ff diuretics, urine output reported 2 L, magnesium 1.69 we will give magnesium sulfate 2 g IV x1, continue prednisone. 09/20/2022 laboratory this mo rning showed sodium 136, potassium 4.2, CO2 21, BUN 76, creatinine 2.2 down from 2.3, hemoglobin 7.6, platelet 302, blood count 12.3 , continue off diuretics 09/21/2022 blood pressure sti ll elevated will increase hydralazine to 100 mg p.o. 3 times daily, hemoglobin 7.6, platelet 296, blo od count 13, urine output reported 3025, will start prednisone 50 mg p.o. daily for 3 days, sodium 137, potassium 4.6, CO2 22, BUN 75, creatinine 1.9 do wn from 2.2 continues to improve. 09/22/2022 laboratory this morning showed sodium 138, potassium 5.1, CO2 20, BUN 71, creatinine 1.8 down from 1.9 continues to im prove, continue prednisone, hemoglobin 7.7, platelet 305 , blood count 12, blood pressure still elevated will add Norvasc 10 mg p.o. daily. Consultants: cardiology, endocrinology, hospital ist, infectious disease, podiatry Electronically Signed by Barrera Ramírez MD on at 0947 RPT #:[id number] END OF REPORT 2022-09-22 07:17:00-00:00 [facility] REPORT#:[id number] REPORT STATUS: Signed DATE:09/22/22 TIME: 716 PATIENT: KARMA ROWLAND UNIT #: [id number] ROOM/BED: [place] [address] : 63 AGE: 56 SEX: M ATTEND: Fredy Vences MD ADM AUTHOR: Wilbert Ramires MD * ALL edits or amendments must be made on the [employer]/computer document * Subjective Chief complaint: Edema LLE improved but still present Review of Systems All systems rev neg: except as noted Objective General VS/I O: Vital Signs: Date Time Temp Pulse Resp B/P B/P Pulse O2 O2 Flow FiO2 Mean Ox Delivery Rate 09/23 707 97.9 89 18 158/80 106.1 97 Room air 09/23 35 97.3 81 14 155/76 102.5 97 Room air 09/22 2107 86 169/86 114.0 98 Room air 09/21 2105 87 171/86 114.5 98 Room air 04/30 2045 98.1 90 20 179/88 118.4 98 Room air 09/21 1554 97.5 80 18 169/83 111.6 97 24 hour I O ending at 0700: 09/22 0700 09/21 1900 Intake Total Output Total 2099 Balance -2100 Number 1 Bowel Movements Number 0 Incontinent Voids Number Voids 0 Output, Urine 2100 PATIENT WEIGHT: Weight (lb): 167 Weight (oz): 12.35 Weight (kg): 76.100 Medications: Active Meds + DC'd Last 24 Hrs Prednisone (predniSONE) 50 MG C BK PO Hydralazine HCl (APRESOLINE) 100 MG Q8HR PO Insulin Glargine (Semglee) 19 UNIT BEDTIME SUBQ Daptomycin (CUBICIN 500MG) 500 MG Q24H IV (DC) Sodium Chloride (SODIUM CHLORIDE 0.9%) 50 ML Hydralazine HCl (APRESOLINE) 75 MG Q8HR PO (DC) Insulin Human Lispro (HUMALOG) 10 UNIT AC SUBQ Meropenem (MEROPENEM) 500 MG Q8H IV Sterile Water (WATER FOR INJECTION) 10 ML Carvedilol (COREG) 25 MG C BK DIN PO Gabapentin (NEURONTIN) 100 MG Q8HR PO Oxycodone/Acetaminophen (PERCOCET 5/325MG TAB) 2 TAB Q4H PRN PRN PO Folic Acid (FOLIC ACID) 2 MG DAILY PO Multivitamins (TAB-A-MOHAN) 1 TAB DAILY PO Furosemide (LASIX 20MG INJ) 20 MG BLOOD-DOSE BET WEEN IV (CKD) Sodium Chloride (SODIUM CHLORIDE) 10 ML ASDIR I V Pantoprazole Sodium (PROTONIX) 40 MG Q12HR IV Polyethylene Glycol (MIRALAX) 17 GM DAILY PO Sennosides (Senna Lax 8.6 MG TABLET) 8.6 MG MADALYN Y PO Sodium Chloride (SODIUM CHLORIDE) 10 ML ASDIR NV N IV Amitriptyline HCl (ELAVIL) 25 MG BEDTIME PO Zinc Oxide (ZINC OXIDE 30 GM OINTMENT) 1 APPLIC DAILY TOPICAL Sterile Water (WATER FOR IRRIGATION) DRESSING CH GELACIO ASDIR PRN IRR Insulin Human Lispro (HUMALOG) 0 AC HS SUBQ Dextrose/Water (DEXTROSE 10% IN WATER) 125 ML DIR PRN IV (CKD) Dextrose/Water (DEXTROSE 10% IN WATER) 250 ML DIR PRN IV (CKD) Glucagon (GLUCAGON) 1 MG ASDIR PRN IM Lidocaine (LIDODERM) 1 PATCH DAILY TOPICAL Acetaminophen (TYLENOL) 650 MG Q6H PRN PRN PO Bisacodyl (DULCOLAX) 10 MG DAILY PRN PRN RECTAL Docusate Sodium (COLACE) 100 MG Q12H PRN PRN PO Hydralazine HCl (APRESOLINE) 10 MG Q6H PRN PRN I V Ondansetron HCl (ZOFRAN) 4 MG Q6H PRN PRN IV Physical Exam General appearance: alert, awake, oriented Head/Eyes: atraumatic, normocephalic ENT: moist mucosal membranes Neck: no JVD Cardiovascular: normal heart sounds, regular rat e rhythm Respiratory: aerating well, clear to auscultatio n Abdomen: non-tender, normal bowel sounds Genitourinary: no bladder distention Extremities: edema (1+ pitting edema to thigh), moves all, normal capillary refill Musculoskeletal: normal inspection 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 X 3, 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 Considered stroke alert: no Skin: dry, intact Psychiatry: normal affect, normal judgment/insig ht Results Findings/Data: Laboratory Tests 09/22 09/22 09/21 09/21 09/21 0617 0436 2047 1552 1437 Chemistry Sodium (134 - 147 mEq/L) 138 Potassium (3.4 - 5.0 mEq/L) 5.1 H Chloride (100 - 108 mEq/L) 111 H Carbon Dioxide (21 - 33 mEq/l) 20 L Anion Gap (0 - 20) 12 BUN (7 - 18 mg/dL) 71 H Creatinine (0.6 - 1.3 mg/dL) 1.8 H Glomerular Filtr Rate (90 - 95) 43.1 L Glucose (70 - 110 mg/dL) 244 H POC Glucose (70 - 110 MG/DL) 251 H 251 H 170 H 167 H Calcium (8.0 - 10.5 mg/dL) 7.3 L Phosphorus (2.5 - 4.9 MG/DL) 5.0 H Magnesium (1.80 - 2.40 mg/dL) 2.13 Total Creatine Kinase (46 - 171 Units/L) 27 L Albumin (3.4 - 5.0 g/dL) 1.80 L Prealbumin (16.0 - 40.0 mg/dL) 16.7 09/21 1107 Chemistry POC Glucose (70 - 110 MG/DL) 162 H Laboratory Tests 09/22 0436 Hematology WBC (4.5 - 11.0 x10 3/uL) 12.0 H RBC (4.00 - 5.60 x10 6/uL) 2.65 L Hgb (12.5 - 16.9 g/dL) 7.7 L Hct (37.5 - 50.7 %) 24.2 L MCV (81.0 - 99.0 fL) 91.3 MCH (27.0 - 33.0 pg) 29.1 MCHC (33.0 - 37.0 g/dL) 31.8 L RDW (11.5 - 14.5 %) 16.0 H Plt Count (150 - 400 x10 3/uL) 305 MPV (7.0 - 9.0 fL) 9.5 H Neut % (Auto) (56.0 - 77.0 %) 81.7 H Lymph % (Auto) (14.0 - 32.0 %) 11.3 L Boundary % (Auto) (4.8 - 9.0 %) 5.7 Eos % (Auto) (0.3 - 3.7 %) 0.2 L Baso % (Auto) (0.0 - 2.0 %) 0.0 Neut # (Auto) (2.0 - 7.6 x10 3/uL) 9.79 H Lymph # (Auto) (1.0 - 3.8 x10 3/uL) 1.35 Boundary # (Auto) (0.1 - 0.8 x10 3/uL) 0.68 Eos # (Auto) (0.0 - 0.2 x10 3/uL) 0.02 Baso # (Auto) (0.0 - 0.2 x10 3/uL) 0.00 Abs Immat Gran (auto) (0.00 - 0.03 x10 3/uL) 0. 13 H Add Manual Diff NO Immature Gran % (0.0 - 2.0 %) 1.1 Nucleated RBC % (0 - 0 %) 0.0 Nucleated RBCs # (Man) (0.0 - 0.1 x10 3/uL) 0.0 0 Diagnosis, Assessment Plan Consultants: cardiology, endocrinology, hospital ist, infectious disease, podiatry Free Text DxA P Notes Free text DxA P notes: Gangrene of right foot s/p Below- knee amputatio n Prostate abscess MRSA bacteremia Hx of Diabetes, Diabetic neuropathy HTN ERIKA PLANS: Continue with PT/OT per primary Wound care and Abx as per ID Hepain PPX IV iron BS better but likely to incr ease with re-initiation of steroids x3 days started by Nephrology for AIN - Endo adjusting insulin pain control creatinine improving so far Edema about the same, Lasix as per renal Hgb stabilized. continue to monitor BP elevated. continue to adjust meds cardio following Electronically Signed by Wilbert Ramires MD on at 1102 RPT #:[id number] END OF REPORT 2022-09-21 20:34:00-00:00 [facility] Endocr[facility]ology Progress Note REPORT#:[id number] REPORT STATUS: Signed DATE:09/21/22 TIME: 2033 PATIENT: KARMA ROWLAND UNIT #: [id number] ROOM/BED: [place] [address] : 63 AGE: 56 SEX: M ATTEND: Fredy Vences MD ADM AUTHOR: Braxton Chapin MD * ALL edits or amendments must be made on the [employer]/computer document * Subjective Patient reports: no complaints Objective General VS: Last Documented: Result Date Time Pulse Ox 97 09/21 1554 B/P 169/83 09/21 1554 B/P Mean 111.6 09/21 1554 Temp 36.4 09/21 1554 Pulse 80 09/21 1554 Resp 18 09/21 1554 O2 Delivery Room air 09/20 2321 O2 Flow Rate 2 09/08 1322 PATIENT WEIGHT: Weight (lb): 167 Weight (oz): 12.35 Weight (kg): 76.100 Medications: Active Meds + DC'd Last 24 Hrs Prednisone (predniSONE) 50 MG C BK PO Hydralazine HCl (APRESOLINE) 100 MG Q8HR PO Insulin Glargine (Semglee) 19 UNIT BEDTIME SUBQ Prednisone (predniSONE) 60 MG DAILY 0600 PO (DC) Daptomycin (CUBICIN 500MG) 500 MG Q24H IV (DC) Sodium Chloride (SODIUM CHLORIDE 0.9%) 50 ML Hydralazine HCl (APRESOLINE) 75 MG Q8HR PO (DC) Insulin Human Lispro (HUMALOG) 10 UNIT AC SUBQ Meropenem (MEROPENEM) 500 MG Q8H IV Sterile Water (WATER FOR INJECTION) 10 ML Carvedilol (COREG) 25 MG C BK DIN PO Gabapentin (NEURONTIN) 100 MG Q8HR PO Oxycodone/Acetaminophen (PERCOCET 5/325MG TAB) 2 TAB Q4H PRN PRN PO Folic Acid (FOLIC ACID) 2 MG DAILY PO Multivitamins (TAB-A-MOHAN) 1 TAB DAILY PO Furosemide (LASIX 20MG INJ) 20 MG BLOOD-DOSE BET WEEN IV (CKD) Sodium Chloride (SODIUM CHLORIDE) 10 ML ASDIR IV Pantoprazole Sodium (PROTONIX) 40 MG Q12HR IV Polyethylene Glycol (MIRALAX) 17 GM DAILY PO Sennosides (Senna Lax 8.6 MG TABLET) 8.6 MG MADALYN Y PO Sodium Chloride (SODIUM CHLORIDE) 10 ML ASDIR NV N IV Amitriptyline HCl (ELAVIL) 25 MG BEDTIME PO Zinc Oxide (ZINC OXIDE 30 GM OINTMENT) 1 APPLIC DAILY TOPICAL Sterile Water (WATER FOR IRRIGATION) DRESSING CH GELACIO ASDIR PRN IRR Insulin Human Lispro (HUMALOG) 0 AC HS SUBQ Dextrose/Water (DEXTROSE 10% IN WATER) 125 ML DIR PRN IV (CKD) Dextrose/Water (DEXTROSE 10% IN WATER) 250 ML DIR PRN IV (CKD) Glucagon (GLUCAGON) 1 MG ASDIR PRN IM Lidocaine (LIDODERM) 1 PATCH DAILY TOPICAL Acetaminophen (TYLENOL) 650 MG Q6H PRN PRN PO Bisacodyl (DULCOLAX) 10 MG DAILY PRN PRN RECTAL Docusate Sodium (COLACE) 100 MG Q12H PRN PRN PO Hydralazine HCl (APRESOLINE) 10 MG Q6H PRN PRN I V Ondansetron HCl (ZOFRAN) 4 MG Q6H PRN PRN IV Physical Exam General appearance: alert, awake Diagnosis, Assessment Plan Hospital course to date: Laboratory Tests: 09/21 09/21 09/21 09/21 09/21 1552 [id number] Chemistry Sodium (134 - 147 mEq/L) 137 Potassium (3.4 - 5.0 mEq/L) 4.6 Chloride (100 - 108 mEq/L) 107 Carbon Dioxide (21 - 33 mEq/l) 22 Anion Gap (0 - 20) 13 BUN (7 - 18 mg/dL) 75 H Creatinine (0.6 - 1.3 mg/dL) 1.9 H Glomerular Filtr Rate (90 - 95) 40.4 L Glucose (70 - 110 mg/dL) 148 H POC Glucose (70 - 110 MG/DL) 170 H 167 H 162 H 155 H Calcium (8.0 - 10.5 mg/dL) 7.5 L Phosphorus (2.5 - 4.9 MG/DL) 5.0 H Magnesium (1.80 - 2.40 mg/dL) 2.06 Hematology WBC (4.5 - 11.0 x10 3/uL) 13.0 H RBC (4.00 - 5.60 x10 6/uL) 2.69 L Hgb (12.5 - 16.9 g/dL) 7.6 L Hct (37.5 - 50.7 %) 23.9 L MCV (81.0 - 99.0 fL) 88.8 MCH (27.0 - 33.0 pg) 28.3 MCHC (33.0 - 37.0 g/dL) 31.8 L RDW (11.5 - 14.5 %) 15.7 H Plt Count (150 - 400 x10 3/uL) 296 MPV (7.0 - 9.0 fL) 9.8 H Neut % (Auto) (56.0 - 77.0 %) 82.2 H Lymph % (Auto) (14.0 - 32.0 %) 11.3 L Boundary % (Auto) (4.8 - 9.0 %) 5.3 Eos % (Auto) (0.3 - 3.7 %) 0.2 L Baso % (Auto) (0.0 - 2.0 %) 0.1 Neut # (Auto) (2.0 - 7.6 x10 3/uL) 10.70 H Lymph # (Auto) (1.0 - 3.8 x10 3/uL) 1.47 Boundary # (Auto) (0.1 - 0.8 x10 3/uL) 0.69 Eos # (Auto) (0.0 - 0.2 x10 3/uL) 0.03 Baso # (Auto) (0.0 - 0.2 x10 3/uL) 0.01 Abs Immat Gran (auto) (0.00 - 0.03 0.12 H x10 3/uL) Add Manual Diff NO Immature Gran % (0.0 - 2.0 %) 0.9 Nucleated RBC % (0 - 0 %) 0.0 Nucleated RBCs # (Man) (0.0 - 0.1 0.00 x10 3/uL) Laboratory Tests: 09/20 09/20 09/20 09/20 09/19 1140 0922 0505 0450 1921 Chemistry Sodium (134 - 147 mEq/L) 136 Potassium (3.4 - 5.0 mEq/L) 4.2 Chloride (100 - 108 mEq/L) 107 Carbon Dioxide (21 - 33 mEq/l) 21 Anion Gap (0 - 20) 12 BUN (7 - 18 mg/dL) 76 H Creatinine (0.6 - 1.3 mg/dL) 2.2 H Glomerular Filtr Rate (90 - 95) 33.9 L Glucose (70 - 110 mg/dL) 301 H POC Glucose (70 - 110 MG/DL) 155 H 299 H 277 H 236 H Calcium (8.0 - 10.5 mg/dL) 7.4 L Phosphorus (2.5 - 4.9 MG/DL) 5.4 H Magnesium (1.80 - 2.40 mg/dL) 2.05 Hematology WBC (4.5 - 11.0 x10 3/uL) 12.3 H RBC (4.00 - 5.60 x10 6/uL) 2.66 L Hgb (12.5 - 16.9 g/dL) 7.6 L Hct (37.5 - 50.7 %) 23.9 L MCV (81.0 - 99.0 fL) 89.8 MCH (27.0 - 33.0 pg) 28.6 MCHC (33.0 - 37.0 g/dL) 31.8 L RDW (11.5 - 14.5 %) 15.3 H Plt Count (150 - 400 x10 3/uL) 302 MPV (7.0 - 9.0 fL) 9.2 H Neut % (Auto) (56.0 - 77.0 %) 79.7 H Lymph % (Auto) (14.0 - 32.0 %) 13.0 L Boundary % (Auto) (4.8 - 9.0 %) 6.2 Eos % (Auto) (0.3 - 3.7 %) 0.2 L Baso % (Auto) (0.0 - 2.0 %) 0.1 Neut # (Auto) (2.0 - 7.6 x10 3/uL) 9.84 H Lymph # (Auto) (1.0 - 3.8 x10 3/uL) 1.60 Boundary # (Auto) (0.1 - 0.8 x10 3/uL) 0.76 Eos # (Auto) (0.0 - 0.2 x10 3/uL) 0.03 Baso # (Auto) (0.0 - 0.2 x10 3/uL) 0.01 Abs Immat Gran (auto) (0.00 - 0.03 0.10 H x10 3/uL) Add Manual Diff NO Immature Gran % (0.0 - 2.0 %) 0.8 Nucleated RBC % (0 - 0 %) 0.0 Nucleated RBCs # (Man) (0.0 - 0.1 0.00 x10 3/uL) Laboratory Tests: 09/19 09/19 09/19 09/18 09/18 1133 0501 0448 2151 1933 Chemistry Sodium (134 - 147 mEq/L) 139 Potassium (3.4 - 5.0 mEq/L) 3.8 Chloride (100 - 108 mEq/L) 108 Carbon Dioxide (21 - 33 mEq/l) 22 Anion Gap (0 - 20) 13 BUN (7 - 18 mg/dL) 72 H Creatinine (0.6 - 1.3 mg/dL) 2.3 H Glomerular Filtr Rate (90 - 95) 32.1 L Glucose (70 - 110 mg/dL) 61 L POC Glucose (70 - 110 MG/DL) 96 162 H 103 70 Calcium (8.0 - 10.5 mg/dL) 7.5 L Phosphorus (2.5 - 4.9 MG/DL) 5.0 H Magnesium (1.80 - 2.40 mg/dL) 1.69 L Hematology WBC (4.5 - 11.0 x10 3/uL) 13.3 H RBC (4.00 - 5.60 x10 6/uL) 2.79 L Hgb (12.5 - 16.9 g/dL) 8.0 L Hct (37.5 - 50.7 %) 25.0 L MCV (81.0 - 99.0 fL) 89.6 MCH (27.0 - 33.0 pg) 28.7 MCHC (33.0 - 37.0 g/dL) 32.0 L RDW (11.5 - 14.5 %) 14.9 H Plt Count (150 - 400 x10 3/uL) 347 MPV (7.0 - 9.0 fL) 9.1 H Neut % (Auto) (56.0 - 77.0 %) 71.4 Lymph % (Auto) (14.0 - 32.0 %) 16.5 Boundary % (Auto) (4.8 - 9.0 %) 8.4 Eos % (Auto) (0.3 - 3.7 %) 2.4 Baso % (Auto) (0.0 - 2.0 %) 0.2 Neut # (Auto) (2.0 - 7.6 x10 3/uL) 9.50 H Lymph # (Auto) (1.0 - 3.8 x10 3/uL) 2.19 Boundary # (Auto) (0.1 - 0.8 x10 3/uL) 1.11 H Eos # (Auto) (0.0 - 0.2 x10 3/uL) 0.32 H Baso # (Auto) (0.0 - 0.2 x10 3/uL) 0.02 Abs Immat Gran (auto) (0.00 - 0.03 0.14 H x10 3/uL) Add Manual Diff NO Immature Gran % (0.0 - 2.0 %) 1.1 Nucleated RBC % (0 - 0 %) 0.0 Nucleated RBCs # (Man) (0.0 - 0.1 0.00 x10 3/uL) 09/18 161 Chemistry POC Glucose (70 - 110 MG/DL) 118 H Laboratory Tests: 09/18 09/18 09/18 09/18 1611 1102 0906 0540 Chemistry POC Glucose (70 - 110 MG/DL) 118 H 80 171 H 203 H 09/18 09/17 0505 1904 Chemistry Sodium (134 - 147 mEq/L) 138 Potassium (3.4 - 5.0 mEq/L) 4.1 Chloride (100 - 108 mEq/L) 108 Carbon Dioxide (21 - 33 mEq/l) 21 Anion Gap (0 - 20) 13 BUN (7 - 18 mg/dL) 66 H Creatinine (0.6 - 1.3 mg/dL) 2.2 H Glomerular Filtr Rate (90 - 95) 33.9 L Glucose (70 - 110 mg/dL) 201 H POC Glucose (70 - 110 MG/DL) 160 H Calcium (8.0 - 10.5 mg/dL) 7.5 L Phosphorus (2.5 - 4.9 MG/DL) 4.4 Magnesium (1.80 - 2.40 mg/dL) 1.83 Hematology WBC (4.5 - 11.0 x10 3/uL) 10.6 RBC (4.00 - 5.60 x10 6/uL) 2.67 L Hgb (12.5 - 16.9 g/dL) 7.6 L Hct (37.5 - 50.7 %) 23.7 L MCV (81.0 - 99.0 fL) 88.8 MCH (27.0 - 33.0 pg) 28.5 MCHC (33.0 - 37.0 g/dL) 32.1 L RDW (11.5 - 14.5 %) 14.8 H Plt Count (150 - 400 x10 3/uL) 341 MPV (7.0 - 9.0 fL) 9.2 H Neut % (Auto) (56.0 - 77.0 %) 74.6 Lymph % (Auto) (14.0 - 32.0 %) 17.4 Boundary % (Auto) (4.8 - 9.0 %) 6.9 Eos % (Auto) (0.3 - 3.7 %) 0.1 L Baso % (Auto) (0.0 - 2.0 %) 0.1 Neut # (Auto) (2.0 - 7.6 x10 3/uL) 7.91 H Lymph # (Auto) (1.0 - 3.8 x10 3/uL) 1.85 Boundary # (Auto) (0.1 - 0.8 x10 3/uL) 0.73 Eos # (Auto) (0.0 - 0.2 x10 3/uL) 0.01 Baso # (Auto) (0.0 - 0.2 x10 3/uL) 0.01 Abs Immat Gran (auto) (0.00 - 0.03 x10 3/uL) 0. 10 H Add Manual Diff NO Immature Gran % (0.0 - 2.0 %) 0.9 Nucleated RBC % (0 - 0 %) 0.0 Nucleated RBCs # (Man) (0.0 - 0.1 x10 3/uL) 0.0 0 Laboratory Tests: 09/17 09/17 09/17 09/17 09/17 1554 1027 0951 0601 0451 Chemistry POC Glucose (70 - 110 MG/DL) 75 256 H 287 H 286 H 273 H 09/17 09/16 09/16 0450 2345 1931 Chemistry Sodium (134 - 147 mEq/L) 136 Potassium (3.4 - 5.0 mEq/L) 4.5 Chloride (100 - 108 mEq/L) 107 Carbon Dioxide (21 - 33 mEq/l) 21 Anion Gap (0 - 20) 12 BUN (7 - 18 mg/dL) 66 H Creatinine (0.6 - 1.3 mg/dL) 2.4 H Glomerular Filtr Rate (90 - 95) 30.5 L Glucose (70 - 110 mg/dL) 285 H POC Glucose (70 - 110 MG/DL) 291 H 219 H Calcium (8.0 - 10.5 mg/dL) 7.4 L Phosphorus (2.5 - 4.9 MG/DL) 4.5 Magnesium (1.80 - 2.40 mg/dL) 1.97 Hematology WBC (4.5 - 11.0 x10 3/uL) 8.9 RBC (4.00 - 5.60 x10 6/uL) 2.83 L Hgb (12.5 - 16.9 g/dL) 8.1 L Hct (37.5 - 50.7 %) 24.9 L MCV (81.0 - 99.0 fL) 88.0 MCH (27.0 - 33.0 pg) 28.6 MCHC (33.0 - 37.0 g/dL) 32.5 L RDW (11.5 - 14.5 %) 14.6 H Plt Count (150 - 400 x10 3/uL) 374 MPV (7.0 - 9.0 fL) 9.6 H Neut % (Auto) (56.0 - 77.0 %) 85.2 H Lymph % (Auto) (14.0 - 32.0 %) 10.2 L Boundary % (Auto) (4.8 - 9.0 %) 2.9 L Eos % (Auto) (0.3 - 3.7 %) 0.0 L Baso % (Auto) (0.0 - 2.0 %) 0.1 Neut # (Auto) (2.0 - 7.6 x10 3/uL) 7.58 Lymph # (Auto) (1.0 - 3.8 x10 3/uL) 0.91 L Boundary # (Auto) (0.1 - 0.8 x10 3/uL) 0.26 Eos # (Auto) (0.0 - 0.2 x10 3/uL) 0.00 Baso # (Auto) (0.0 - 0.2 x10 3/uL) 0.01 Abs Immat Gran (auto) (0.00 - 0.03 x10 3/uL) 0. 14 H Add Manual Diff NO Immature Gran % (0.0 - 2.0 %) 1.6 Nucleated RBC % (0 - 0 %) 0.0 Nucleated RBCs # (Man) (0.0 - 0.1 x10 3/uL) 0.0 0 Laboratory Tests: 09/16 09/16 09/16 09/16 1549 1441 1110 0553 Chemistry POC Glucose (70 - 110 MG/DL) 62 L 60 L 148 H 19 5 H 09/16 09/15 7635 1937 Chemistry Sodium (134 - 147 mEq/L) 135 Potassium (3.4 - 5.0 mEq/L) 4.5 Chloride (100 - 108 mEq/L) 108 Carbon Dioxide (21 - 33 mEq/l) 20 L Anion Gap (0 - 20) 11 BUN (7 - 18 mg/dL) 60 H Creatinine (0.6 - 1.3 mg/dL) 2.7 H Glomerular Filtr Rate (90 - 95) 26.5 L Glucose (70 - 110 mg/dL) 175 H POC Glucose (70 - 110 MG/DL) 124 H Calcium (8.0 - 10.5 mg/dL) 7.5 L Phosphorus (2.5 - 4.9 MG/DL) 4.6 Magnesium (1.80 - 2.40 mg/dL) 1.93 Hematology WBC (4.5 - 11.0 x10 3/uL) 9.5 RBC (4.00 - 5.60 x10 6/uL) 2.70 L Hgb (12.5 - 16.9 g/dL) 7.6 L Hct (37.5 - 50.7 %) 23.7 L MCV (81.0 - 99.0 fL) 87.8 MCH (27.0 - 33.0 pg) 28.1 MCHC (33.0 - 37.0 g/dL) 32.1 L RDW (11.5 - 14.5 %) 14.6 H Plt Count (150 - 400 x10 3/uL) 360 MPV (7.0 - 9.0 fL) 9.6 H Neut % (Auto) (56.0 - 77.0 %) 73.4 Lymph % (Auto) (14.0 - 32.0 %) 18.6 Boundary % (Auto) (4.8 - 9.0 %) 6.7 Eos % (Auto) (0.3 - 3.7 %) 0.2 L Baso % (Auto) (0.0 - 2.0 %) 0.1 Neut # (Auto) (2.0 - 7.6 x10 3/uL) 6.99 Lymph # (Auto) (1.0 - 3.8 x10 3/uL) 1.77 Boundary # (Auto) (0.1 - 0.8 x10 3/uL) 0.64 Eos # (Auto) (0.0 - 0.2 x10 3/uL) 0.02 Baso # (Auto) (0.0 - 0.2 x10 3/uL) 0.01 Abs Immat Gran (auto) (0.00 - 0.03 x10 3/uL) 0. 10 H Add Manual Diff NO Immature Gran % (0.0 - 2.0 %) 1.0 Nucleated RBC % (0 - 0 %) 0.0 Nucleated RBCs # (Man) (0.0 - 0.1 x10 3/uL) 0.0 0 Laboratory Tests: 09/15 09/15 09/15 09/15 1640 1304 1154 0519 Chemistry POC Glucose (70 - 110 MG/DL) 137 H 126 H 309 H Urines Urine Color (YEL/STRAW) YELLOW Urine Appearance (CLEAR) SL CLOUDY Urine pH (5.0 - 7.0) 5.0 Ur Specific [place] (1.005 - 1.030) 1.013 Urine Protein (NEGATIVE) 2+ H Urine Glucose (UA) (NEGATIVE) 2+ H Urine Ketones (NEGATIVE) NEGATIVE Urine Blood (NEGATIVE) 2+ H Urine Nitrite (NEGATIVE) NEGATIVE Urine Bilirubin (NEGATIVE) NEGATIVE Urine Urobilinogen (0.2 - 1.0 mg/dL) 0.2 Ur Leukocyte Esterase (NEGATIVE) TRACE H Urine RBC (0 - 3 RBC/HPF) 21-50 Urine WBC (0 - 3 WBC/HPF) 4-9 H Ur Squamous Epith Cells (NONE SEEN /HPF) 0-5 Ur Transition Epith Cell (NONE SEEN /HPF) TRACE Urine Bacteria (NONE SEEN /HPF) TRACE Granular Casts (NONE /LPF) 3-5 Urine Mucus (NONE SEEN /LPF) TRACE Ur Random Creatinine (mg/dL) 52.5 U Random Total Protein (mg/dL) 283 09/15 09/14 0515 1931 Chemistry Sodium (134 - 147 mEq/L) 132 L Potassium (3.4 - 5.0 mEq/L) 4.7 Chloride (100 - 108 mEq/L) 105 Carbon Dioxide (21 - 33 mEq/l) 17 L Anion Gap (0 - 20) 15 BUN (7 - 18 mg/dL) 38 H Creatinine (0.6 - 1.3 mg/dL) 2.9 H Glomerular Filtr Rate (90 - 95) 24.3 L Glucose (70 - 110 mg/dL) 312 H POC Glucose (70 - 110 MG/DL) 193 H Calcium (8.0 - 10.5 mg/dL) 7.2 L Phosphorus (2.5 - 4.9 MG/DL) 5.7 H Magnesium (1.80 - 2.40 mg/dL) 1.96 Total Creatine Kinase (46 - 171 Units/L) 26 L Albumin (3.4 - 5.0 g/dL) 1.50 L Prealbumin (16.0 - 40.0 mg/dL) 8.0 L Hematology WBC (4.5 - 11.0 x10 3/uL) 8.7 RBC (4.00 - 5.60 x10 6/uL) 2.88 L Hgb (12.5 - 16.9 g/dL) 8.2 L Hct (37.5 - 50.7 %) 26.5 L MCV (81.0 - 99.0 fL) 92.0 MCH (27.0 - 33.0 pg) 28.5 MCHC (33.0 - 37.0 g/dL) 30.9 L RDW (11.5 - 14.5 %) 14.3 Plt Count (150 - 400 x10 3/uL) 341 MPV (7.0 - 9.0 fL) 9.1 H Neut % (Auto) (56.0 - 77.0 %) 84.9 H Lymph % (Auto) (14.0 - 32.0 %) 11.3 L Boundary % (Auto) (4.8 - 9.0 %) 3.2 L Eos % (Auto) (0.3 - 3.7 %) 0.0 L Baso % (Auto) (0.0 - 2.0 %) 0.1 Neut # (Auto) (2.0 - 7.6 x10 3/uL) 7.35 Lymph # (Auto) (1.0 - 3.8 x10 3/uL) 0.98 L Boundary # (Auto) (0.1 - 0.8 x10 3/uL) 0.28 Eos # (Auto) (0.0 - 0.2 x10 3/uL) 0.00 Baso # (Auto) (0.0 - 0.2 x10 3/uL) 0.01 Abs Immat Gran (auto) (0.00 - 0.03 x10 3/uL) 0. 04 H Add Manual Diff NO Immature Gran % (0.0 - 2.0 %) 0.5 Nucleated RBC % (0 - 0 %) 0.0 Nucleated RBCs # (Man) (0.0 - 0.1 x10 3/uL) 0.0 0 Microbiology: Date/Time Procedure - Status Source Growth 09/15 514 MRSA DNA Surveillance Screen - COMP NASAL Laboratory Tests: 09/14 09/14 09/14 09/14 09/13 9979 7376 5582 8532 6117 Chemistry Sodium (134 - 147 mEq/L) 132 L Potassium (3.4 - 5.0 mEq/L) 4.4 Chloride (100 - 108 mEq/L) 104 Carbon Dioxide (21 - 33 mEq/l) 19 L Anion Gap (0 - 20) 14 BUN (7 - 18 mg/dL) 38 H Creatinine (0.6 - 1.3 mg/dL) 2.8 H Glomerular Filtr Rate (90 - 95) 25.4 L Glucose (70 - 110 mg/dL) 325 H POC Glucose (70 - 110 MG/DL) 137 H 290 H 334 H 248 H Calcium (8.0 - 10.5 mg/dL) 7.5 L Hematology WBC (4.5 - 11.0 x10 3/uL) 9.5 RBC (4.00 - 5.60 x10 6/uL) 2.83 L Hgb (12.5 - 16.9 g/dL) 8.0 L Hct (37.5 - 50.7 %) 25.3 L MCV (81.0 - 99.0 fL) 89.4 MCH (27.0 - 33.0 pg) 28.3 MCHC (33.0 - 37.0 g/dL) 31.6 L RDW (11.5 - 14.5 %) 14.0 Plt Count (150 - 400 x10 3/uL) 322 MPV (7.0 - 9.0 fL) 9.3 H Neut % (Auto) (56.0 - 77.0 %) 80.2 H Lymph % (Auto) (14.0 - 32.0 %) 13.9 L Boundary % (Auto) (4.8 - 9.0 %) 5.1 Eos % (Auto) (0.3 - 3.7 %) 0.0 L Baso % (Auto) (0.0 - 2.0 %) 0.1 Neut # (Auto) (2.0 - 7.6 x10 3/uL) 7.58 Lymph # (Auto) (1.0 - 3.8 x10 3/uL) 1.31 Boundary # (Auto) (0.1 - 0.8 x10 3/uL) 0.48 Eos # (Auto) (0.0 - 0.2 x10 3/uL) 0.00 Baso # (Auto) (0.0 - 0.2 x10 3/uL) 0.01 Abs Immat Gran (auto) (0.00 - 0.03 0.07 H x10 3/uL) Add Manual Diff NO Immature Gran % (0.0 - 2.0 %) 0.7 Nucleated RBC % (0 - 0 %) 0.0 Nucleated RBCs # (Man) (0.0 - 0.1 0.00 x10 3/uL) 09/13 1629 Chemistry POC Glucose (70 - 110 MG/DL) 130 H Laboratory Tests: 09/13 09/13 09/13 09/12 1105 0543 0455 2016 Chemistry Sodium (134 - 147 mEq/L) 133 L Potassium (3.4 - 5.0 mEq/L) 4.6 Chloride (100 - 108 mEq/L) 107 Carbon Dioxide (21 - 33 mEq/l) 19 L Anion Gap (0 - 20) 12 BUN (7 - 18 mg/dL) 28 H Creatinine (0.6 - 1.3 mg/dL) 2.7 H Glomerular Filtr Rate (90 - 95) 26.5 L Glucose (70 - 110 mg/dL) 241 H POC Glucose (70 - 110 MG/DL) 307 H 258 H 223 H Calcium (8.0 - 10.5 mg/dL) 7.8 L Phosphorus (2.5 - 4.9 MG/DL) 4.7 Magnesium (1.80 - 2.40 mg/dL) 1.92 Hematology WBC (4.5 - 11.0 x10 3/uL) 9.8 RBC (4.00 - 5.60 x10 6/uL) 2.90 L Hgb (12.5 - 16.9 g/dL) 8.2 L Hct (37.5 - 50.7 %) 25.4 L MCV (81.0 - 99.0 fL) 87.6 MCH (27.0 - 33.0 pg) 28.3 MCHC (33.0 - 37.0 g/dL) 32.3 L RDW (11.5 - 14.5 %) 13.7 Plt Count (150 - 400 x10 3/uL) 288 MPV (7.0 - 9.0 fL) 10.0 H Neut % (Auto) (56.0 - 77.0 %) 85.3 H Lymph % (Auto) (14.0 - 32.0 %) 10.4 L Boundary % (Auto) (4.8 - 9.0 %) 3.5 L Eos % (Auto) (0.3 - 3.7 %) 0.0 L Baso % (Auto) (0.0 - 2.0 %) 0.1 Neut # (Auto) (2.0 - 7.6 x10 3/uL) 8.34 H Lymph # (Auto) (1.0 - 3.8 x10 3/uL) 1.02 Boundary # (Auto) (0.1 - 0.8 x10 3/uL) 0.34 Eos # (Auto) (0.0 - 0.2 x10 3/uL) 0.00 Baso # (Auto) (0.0 - 0.2 x10 3/uL) 0.01 Abs Immat Gran (auto) (0.00 - 0.03 x10 3/uL) 0. 07 H Add Manual Diff NO Immature Gran % (0.0 - 2.0 %) 0.7 Nucleated RBC % (0 - 0 %) 0.0 Nucleated RBCs # (Man) (0.0 - 0.1 x10 3/uL) 0.0 0 Microbiology: Date/Time Procedure - Status Source Growth 09/13 0455 MRSA DNA Surveillance Screen - RECD NASAL Laboratory Tests: 09/12 09/12 09/12 09/12 1606 1115 1105 0604 Chemistry POC Glucose (70 - 110 MG/DL) 150 H 68 L 170 H B-Natriuretic Peptide (0 - 100 PG/ML) 297.0 H Hematology Eos Smear Total Cells NONE SEEN 09/12 09/11 09/11 0420 2130 1933 Chemistry Sodium (134 - 147 mEq/L) 134 Potassium (3.4 - 5.0 mEq/L) 4.2 Chloride (100 - 108 mEq/L) 106 Carbon Dioxide (21 - 33 mEq/l) 20 L Anion Gap (0 - 20) 12 BUN (7 - 18 mg/dL) 31 H Creatinine (0.6 - 1.3 mg/dL) 2.4 H Glomerular Filtr Rate (90 - 95) 30.5 L Glucose (70 - 110 mg/dL) 167 H POC Glucose (70 - 110 MG/DL) 150 H Calcium (8.0 - 10.5 mg/dL) 8.2 Phosphorus (2.5 - 4.9 MG/DL) 4.4 Magnesium (1.80 - 2.40 mg/dL) 1.86 Hematology WBC (4.5 - 11.0 x10 3/uL) 8.8 RBC (4.00 - 5.60 x10 6/uL) 2.73 L Hgb (12.5 - 16.9 g/dL) 7.7 L Hct (37.5 - 50.7 %) 23.7 L MCV (81.0 - 99.0 fL) 86.8 MCH (27.0 - 33.0 pg) 28.2 MCHC (33.0 - 37.0 g/dL) 32.5 L RDW (11.5 - 14.5 %) 13.8 Plt Count (150 - 400 x10 3/uL) 248 MPV (7.0 - 9.0 fL) 9.7 H Neut % (Auto) (56.0 - 77.0 %) 72.3 Lymph % (Auto) (14.0 - 32.0 %) 15.0 Boundary % (Auto) (4.8 - 9.0 %) 7.9 Eos % (Auto) (0.3 - 3.7 %) 3.8 H Baso % (Auto) (0.0 - 2.0 %) 0.3 Neut # (Auto) (2.0 - 7.6 x10 3/uL) 6.34 Lymph # (Auto) (1.0 - 3.8 x10 3/uL) 1.31 Boundary # (Auto) (0.1 - 0.8 x10 3/uL) 0.69 Eos # (Auto) (0.0 - 0.2 x10 3/uL) 0.33 H Baso # (Auto) (0.0 - 0.2 x10 3/uL) 0.03 Abs Immat Gran (auto) (0.00 - 0.03 x10 3/uL) 0. 06 H Add Manual Diff NO Immature Gran % (0.0 - 2.0 %) 0.7 Nucleated RBC % (0 - 0 %) 0.0 Nucleated RBCs # (Man) (0.0 - 0.1 x10 3/uL) 0.0 0 Toxicology Random Vancomycin (mcg/mL) 16.7 Laboratory Tests: 09/11 09/11 09/11 09/11 09/11 1532 1445 1114 0541 0445 Chemistry Sodium (134 - 147 mEq/L) 134 Potassium (3.4 - 5.0 mEq/L) 4.3 Chloride (100 - 108 mEq/L) 105 Carbon Dioxide (21 - 33 mEq/l) 22 Anion Gap (0 - 20) 12 BUN (7 - 18 mg/dL) 26 H Creatinine (0.6 - 1.3 mg/dL) 2.0 H Glomerular Filtr Rate (90 - 95) 38.0 L Glucose (70 - 110 mg/dL) 109 POC Glucose (70 - 110 MG/DL) 93 109 127 H Calcium (8.0 - 10.5 mg/dL) 8.3 Phosphorus (2.5 - 4.9 MG/DL) 4.7 Magnesium (1.80 - 2.40 mg/dL) 1.90 Hematology WBC (4.5 - 11.0 x10 3/uL) 7.9 RBC (4.00 - 5.60 x10 6/uL) 2.94 L Hgb (12.5 - 16.9 g/dL) 8.3 L Hct (37.5 - 50.7 %) 25.8 L MCV (81.0 - 99.0 fL) 87.8 MCH (27.0 - 33.0 pg) 28.2 MCHC (33.0 - 37.0 g/dL) 32.2 L RDW (11.5 - 14.5 %) 13.7 Plt Count (150 - 400 x10 3/uL) 269 MPV (7.0 - 9.0 fL) 9.8 H Neut % (Auto) (56.0 - 77.0 %) 67.9 Lymph % (Auto) (14.0 - 32.0 %) 16.1 Boundary % (Auto) (4.8 - 9.0 %) 9.1 H Eos % (Auto) (0.3 - 3.7 %) 5.6 H Baso % (Auto) (0.0 - 2.0 %) 0.5 Neut # (Auto) (2.0 - 7.6 x10 3/uL) 5.35 Lymph # (Auto) (1.0 - 3.8 x10 3/uL) 1.27 Boundary # (Auto) (0.1 - 0.8 x10 3/uL) 0.72 Eos # (Auto) (0.0 - 0.2 x10 3/uL) 0.44 H Baso # (Auto) (0.0 - 0.2 x10 3/uL) 0.04 Abs Immat Gran (auto) (0.00 - 0.03 0.06 H x10 3/uL) Add Manual Diff NO Immature Gran % (0.0 - 2.0 %) 0.8 Nucleated RBC % (0 - 0 %) 0.0 Nucleated RBCs # (Man) (0.0 - 0.1 0.00 x10 3/uL) Toxicology Random Vancomycin (mcg/mL) 18.3 09/10 1851 Chemistry POC Glucose (70 - 110 MG/DL) 97 Laboratory Tests: 09/10 09/10 09/10 09/10 09/10 1715 1625 1430 1007 0545 Chemistry Sodium (134 - 147 mEq/L) 135 Potassium (3.4 - 5.0 mEq/L) 4.2 Chloride (100 - 108 mEq/L) 107 Carbon Dioxide (21 - 33 mEq/l) 21 Anion Gap (0 - 20) 11 BUN (7 - 18 mg/dL) 25 H Creatinine (0.6 - 1.3 mg/dL) 1.9 H Glomerular Filtr Rate (90 - 95) 40.4 L Glucose (70 - 110 mg/dL) 156 H POC Glucose (70 - 110 MG/DL) 75 58 L 213 H Calcium (8.0 - 10.5 mg/dL) 8.3 Phosphorus (2.5 - 4.9 MG/DL) 4.6 Magnesium (1.80 - 2.40 mg/dL) 1.89 Hematology WBC (4.5 - 11.0 x10 3/uL) 8.6 RBC (4.00 - 5.60 x10 6/uL) 3.08 L Hgb (12.5 - 16.9 g/dL) 8.6 L Hct (37.5 - 50.7 %) 26.7 L MCV (81.0 - 99.0 fL) 86.7 MCH (27.0 - 33.0 pg) 27.9 MCHC (33.0 - 37.0 g/dL) 32.2 L RDW (11.5 - 14.5 %) 13.8 Plt Count (150 - 400 x10 3/uL) 265 MPV (7.0 - 9.0 fL) 9.6 H Neut % (Auto) (56.0 - 77.0 %) 69.4 Lymph % (Auto) (14.0 - 32.0 %) 15.5 Boundary % (Auto) (4.8 - 9.0 %) 8.5 Eos % (Auto) (0.3 - 3.7 %) 5.5 H Baso % (Auto) (0.0 - 2.0 %) 0.4 Neut # (Auto) (2.0 - 7.6 x10 3/uL) 5.94 Lymph # (Auto) (1.0 - 3.8 x10 3/uL) 1.33 Boundary # (Auto) (0.1 - 0.8 x10 3/uL) 0.73 Eos # (Auto) (0.0 - 0.2 x10 3/uL) 0.47 H Baso # (Auto) (0.0 - 0.2 x10 3/uL) 0.03 Abs Immat Gran (auto) (0.00 - 0.03 0.06 H x10 3/uL) Add Manual Diff NO Immature Gran % (0.0 - 2.0 %) 0.7 Nucleated RBC % (0 - 0 %) 0.0 Nucleated RBCs # (Man) (0.0 - 0.1 0.00 x10 3/uL) Toxicology Random Vancomycin (mcg/mL) 15.7 09/10 09/09 0541 1911 Chemistry POC Glucose (70 - 110 MG/DL) 154 H 102 Recent Impressions: ULTRASOUND - US RETROPERITONEAL COM 09/10 1311 Report Impression - Status: SIGNED Entered: 09/10/2022 1503 IMPRESSION: No acute findings. Impression By: Hakeem Jacobo Laboratory Tests: 09/09 09/09 09/09 09/09 09/09 1606 1526 1403 1049 0524 Chemistry POC Glucose (70 - 110 MG/DL) 109 30 L 90 128 H Toxicology Random Vancomycin (mcg/mL) 15.4 09/09 09/08 09/08 0500 1955 1828 Chemistry Sodium (134 - 147 mEq/L) 136 Potassium (3.4 - 5.0 mEq/L) 4.2 Chloride (100 - 108 mEq/L) 107 Carbon Dioxide (21 - 33 mEq/l) 22 Anion Gap (0 - 20) 11 BUN (7 - 18 mg/dL) 23 H Creatinine (0.6 - 1.3 mg/dL) 1.5 H Glomerular Filtr Rate (90 - 95) 53.6 L Glucose (70 - 110 mg/dL) 125 H POC Glucose (70 - 110 MG/DL) 106 Calcium (8.0 - 10.5 mg/dL) 8.2 Phosphorus (2.5 - 4.9 MG/DL) 4.0 Magnesium (1.80 - 2.40 mg/dL) 1.89 Iron (35 - 150 mcg/dL) 10 L TIBC (260 - 445 mcg/dL) 138 L % Saturation (14 - 34 %) 7.2 L Unsat Iron Binding (mcg/dL) 128 Ferritin (23.9 - 336.2 ng/mL) 700.5 H Lactate Dehydrogenase (87 - 241 IUnits/L) 193 Hematology WBC (4.5 - 11.0 x10 3/uL) 9.2 RBC (4.00 - 5.60 x10 6/uL) 3.01 L Hgb (12.5 - 16.9 g/dL) 8.5 L Hct (37.5 - 50.7 %) 25.9 L MCV (81.0 - 99.0 fL) 86.0 MCH (27.0 - 33.0 pg) 28.2 MCHC (33.0 - 37.0 g/dL) 32.8 L RDW (11.5 - 14.5 %) 13.8 Plt Count (150 - 400 x10 3/uL) 263 MPV (7.0 - 9.0 fL) 9.7 H Neut % (Auto) (56.0 - 77.0 %) 69.1 Lymph % (Auto) (14.0 - 32.0 %) 16.1 Boundary % (Auto) (4.8 - 9.0 %) 9.2 H Eos % (Auto) (0.3 - 3.7 %) 4.7 H Baso % (Auto) (0.0 - 2.0 %) 0.4 Neut # (Auto) (2.0 - 7.6 x10 3/uL) 6.38 Lymph # (Auto) (1.0 - 3.8 x10 3/uL) 1.49 Boundary # (Auto) (0.1 - 0.8 x10 3/uL) 0.85 H Eos # (Auto) (0.0 - 0.2 x10 3/uL) 0.43 H Baso # (Auto) (0.0 - 0.2 x10 3/uL) 0.04 Abs Immat Gran (auto) (0.00 - 0.03 x10 3/uL) 0. 05 H Add Manual Diff NO Immature Gran % (0.0 - 2.0 %) 0.5 Nucleated RBC % (0 - 0 %) 0.0 Nucleated RBCs # (Man) (0.0 - 0.1 x10 3/uL) 0.0 0 Retic Count (auto) (0.3 - 2.3 %) 1.3 Laboratory Tests: 09/08 09/08 09/08 09/08 09/08 1611 1318 1045 1033 0616 Chemistry POC Glucose (70 - 110 MG/DL) 120 H 101 99 101 Toxicology Random Vancomycin (mcg/mL) 15.8 09/08 09/07 09/07 0615 2238 2110 Chemistry Sodium (134 - 147 mEq/L) 135 Potassium (3.4 - 5.0 mEq/L) 4.6 Chloride (100 - 108 mEq/L) 107 Carbon Dioxide (21 - 33 mEq/l) 22 Anion Gap (0 - 20) 10 BUN (7 - 18 mg/dL) 22 H Creatinine (0.6 - 1.3 mg/dL) 1.4 H Glomerular Filtr Rate (90 - 95) 58.3 L Glucose (70 - 110 mg/dL) 100 POC Glucose (70 - 110 MG/DL) 135 H 127 H Calcium (8.0 - 10.5 mg/dL) 8.1 Magnesium (1.80 - 2.40 mg/dL) 1.58 L Total Creatine Kinase (46 - 171 Units/L) 22 L Albumin (3.4 - 5.0 g/dL) 1.30 L Prealbumin (16.0 - 40.0 mg/dL) < 5.0 L Hematology WBC (4.5 - 11.0 x10 3/uL) 9.1 RBC (4.00 - 5.60 x10 6/uL) 3.05 L Hgb (12.5 - 16.9 g/dL) 8.5 L Hct (37.5 - 50.7 %) 26.2 L MCV (81.0 - 99.0 fL) 85.9 MCH (27.0 - 33.0 pg) 27.9 MCHC (33.0 - 37.0 g/dL) 32.4 L RDW (11.5 - 14.5 %) 13.5 Plt Count (150 - 400 x10 3/uL) 231 MPV (7.0 - 9.0 fL) 9.6 H Neut % (Auto) (56.0 - 77.0 %) 73.3 Lymph % (Auto) (14.0 - 32.0 %) 13.7 L Boundary % (Auto) (4.8 - 9.0 %) 7.2 Eos % (Auto) (0.3 - 3.7 %) 4.8 H Baso % (Auto) (0.0 - 2.0 %) 0.3 Neut # (Auto) (2.0 - 7.6 x10 3/uL) 6.64 Lymph # (Auto) (1.0 - 3.8 x10 3/uL) 1.24 Boundary # (Auto) (0.1 - 0.8 x10 3/uL) 0.65 Eos # (Auto) (0.0 - 0.2 x10 3/uL) 0.43 H Baso # (Auto) (0.0 - 0.2 x10 3/uL) 0.03 Abs Immat Gran (auto) (0.00 - 0.03 x10 3/uL) 0. 06 H Add Manual Diff NO Immature Gran % (0.0 - 2.0 %) 0.7 Nucleated RBC % (0 - 0 %) 0.0 Nucleated RBCs # (Man) (0.0 - 0.1 x10 3/uL) 0.0 0 Laboratory Tests: 09/07 09/07 09/07 09/07 09/07 1554 1137 1127 0618 0510 Chemistry Creatinine (0.6 - 1.3 mg/dL) 1.4 H POC Glucose (70 - 110 MG/DL) 112 H 51 L 42 L 13 5 H Hematology Hgb (12.5 - 16.9 g/dL) 8.4 L Hct (37.5 - 50.7 %) 26.2 L Toxicology Random Vancomycin (mcg/mL) 14.7 09/06 09/06 2226 2108 Chemistry POC Glucose (70 - 110 MG/DL) 192 H 211 H Laboratory Tests: 09/06 09/06 09/06 09/06 09/06 1553 1547 1051 0538 0536 Chemistry Creatinine (0.6 - 1.3 mg/dL) 1.4 H POC Glucose (70 - 110 MG/DL) 119 H 92 124 H Hematology Hgb (12.5 - 16.9 g/dL) 8.6 L Hct (37.5 - 50.7 %) 26.1 L Toxicology Vancomycin Trough (10.0 - 20.0 mcg/mL) 18.9 09/05 1910 Chemistry POC Glucose (70 - 110 MG/DL) 117 H Laboratory Tests: 09/05 09/05 09/04 09/04 09/04 1149 0615 2042 1630 1557 Chemistry Sodium (134 - 147 mEq/L) 134 Potassium (3.4 - 5.0 mEq/L) 5.0 Chloride (100 - 108 mEq/L) 109 H Carbon Dioxide (21 - 33 mEq/l) 21 Anion Gap (0 - 20) 9 BUN (7 - 18 mg/dL) 24 H Creatinine (0.6 - 1.3 mg/dL) 1.3 Glomerular Filtr Rate (90 - 95) 63.7 L Glucose (70 - 110 mg/dL) 75 POC Glucose (70 - 110 MG/DL) 74 103 128 H Calcium (8.0 - 10.5 mg/dL) 7.9 L Hematology Hgb (12.5 - 16.9 g/dL) 7.1 L Hct (37.5 - 50.7 %) 22.7 L Toxicology Vancomycin Trough (10.0 - 20.0 mcg/mL) 12.8 Microbiology: Date/Time Procedure - Status Source Growth 09/04 1739 Occult Blood - COMP STOOL Recent Impressions: RADIOLOGY - XR ABDOMEN 1V (KUB) 09/04 1648 Report Impression - Status: SIGNED Entered: 09/04/2022 1757 IMPRESSION: Benign appearance of the abdomen. Impression By: [email or web address] - Roger Parra M.D . ULTRASOUND - [facility] VEIN UNI/LTD 09/05 1146 Report Impression - Status: SIGNED Entered: 09/05/2022 1333 IMPRESSION: 1. No evidence of deep vein thrombosis. 2. Complex heterogeneous hypoechoic fluid collec tion in the left calf region measuring 8.4 x 2.8 x 2.5 cm; there is no internal vascularity or peripheral hyperemia. May represe nt a hematoma. Impression By: TipABJames Ga M.D. RADIOLOGY - XR CHEST 1 V 09/05 1432 Report Impression - Status: SIGNED Entered: 09/05/2022 1515 IMPRESSION: Minimal bibasilar pulmonary opacities Impression By: Hakeem Jacobo Laboratory Tests: 09/04 09/04 09/04 09/04 09/04 1630 1557 1100 1031 0816 Chemistry POC Glucose (70 - 110 MG/DL) 128 H 107 99 Hematology Hgb (12.5 - 16.9 g/dL) 7.7 L Hct (37.5 - 50.7 %) 23.7 L Toxicology Vancomycin Trough (10.0 - 20.0 mcg/mL) 12.8 09/04 09/04 09/03 09/03 0721 0540 1944 1836 Chemistry POC Glucose (70 - 110 MG/DL) 87 124 H Hematology Hgb (12.5 - 16.9 g/dL) 6.8 L Hct (37.5 - 50.7 %) 21.2 L Toxicology Vancomycin Peak (30 - 40 MCG/ML) 27.4 L Microbiology: Date/Time Procedure - Status Source Growth 09/04 1037 Occult Blood - COLB STOOL 1.Diabetes mellitus type 2 uncontrolled complica tions. 2. 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 4. Sepsis 5. Prostate abscess. 6. Anemia Blood sugar 148-170 mg/dL.H/H 8.6/. Adjust insulin dose. PT and OT. Electronically Signed by Braxton Chapin MD on at 2034 RPT #:[id number] END OF REPORT 2022-09-21 19:23:00-00:[address] [facility] ([facility] Cardiology Progress Note REPORT#:[id number] REPORT STATUS: Signed DATE:09/21/22 TIME: 1922 PATIENT: KARMA ROWLAND UNIT #: [id number] ROOM/BED: [place] [address] : 63 AGE: 56 SEX: M ATTEND: Fredy Vences MD ADM AUTHOR: Gianni Parham MD * ALL edits or amendments must be made on the [employer]/computer document * Subjective Chief complaint: weakness Comments: No new symptoms, reports significant improvement in leg swelling Objective General VS/I O: 24 hour I O ending at 0700: 09/21 0700 09/20 1900 Intake Total 120 Output Total 925 2100 Balance -805 -2100 Intake, Oral 120 Number 0 0 Incontinent Voids Number Voids 0 0 Output, Urine 925 2100 Vital Signs: Date Time Temp Pulse Resp B/P B/P Pulse O2 O2 F low FiO2 Mean Ox Delivery Rate 09/21 1554 97.5 80 18 169/83 111.6 97 09/21 0715 97.9 80 16 148/79 102.3 98 09/20 2321 97.3 84 14 161/79 105.9 98 Room air PATIENT WEIGHT: Weight (lb): 167 Weight (oz): 12.35 Weight (kg): 76.100 Medications: Active Meds + DC'd Last 24 Hrs Prednisone (predniSONE) 50 MG C BK PO Hydralazine HCl (APRESOLINE) 100 MG Q8HR PO Insulin Glargine (Semglee) 19 UNIT BEDTIME SUBQ Prednisone (predniSONE) 60 MG DAILY 0600 PO (DC) Daptomycin (CUBICIN 500MG) 500 MG Q24H IV (DC) Sodium Chloride (SODIUM CHLORIDE 0.9%) 50 ML Hydralazine HCl (APRESOLINE) 75 MG Q8HR PO (DC) Insulin Human Lispro (HUMALOG) 10 UNIT AC SUBQ Meropenem (MEROPENEM) 500 MG Q8H IV Sterile Water (WATER FOR INJECTION) 10 ML Carvedilol (COREG) 25 MG C BK DIN PO Gabapentin (NEURONTIN) 100 MG Q8HR PO Oxycodone/Acetaminophen (PERCOCET 5/325MG TAB) 2 TAB Q4H PRN PRN PO Folic Acid (FOLIC ACID) 2 MG DAILY PO Multivitamins (TAB-A-MOHAN) 1 TAB DAILY PO Furosemide (LASIX 20MG INJ) 20 MG BLOOD-DOSE BET WEEN IV (CKD) Sodium Chloride (SODIUM CHLORIDE) 10 ML ASDIR IV Pantoprazole Sodium (PROTONIX) 40 MG Q12HR IV Polyethylene Glycol (MIRALAX) 17 GM DAILY PO Sennosides (Senna Lax 8.6 MG TABLET) 8.6 MG MADALYN Y PO Sodium Chloride (SODIUM CHLORIDE) 10 ML ASDIR NV N IV Amitriptyline HCl (ELAVIL) 25 MG BEDTIME PO Zinc Oxide (ZINC OXIDE 30 GM OINTMENT) 1 APPLIC DAILY TOPICAL Sterile Water (WATER FOR IRRIGATION) DRESSING CH GELACIO ASDIR PRN IRR Insulin Human Lispro (HUMALOG) 0 AC HS SUBQ Dextrose/Water (DEXTROSE 10% IN WATER) 125 ML DIR PRN IV (CKD) Dextrose/Water (DEXTROSE 10% IN WATER) 250 ML DIR PRN IV (CKD) Glucagon (GLUCAGON) 1 MG ASDIR PRN IM Lidocaine (LIDODERM) 1 PATCH DAILY TOPICAL Acetaminophen (TYLENOL) 650 MG Q6H PRN PRN PO Bisacodyl (DULCOLAX) 10 MG DAILY PRN PRN RECTAL Docusate Sodium (COLACE) 100 MG Q12H PRN PRN PO Hydralazine HCl (APRESOLINE) 10 MG Q6H PRN PRN I V Ondansetron HCl (ZOFRAN) 4 MG Q6H PRN PRN IV Physical Exam General appearance: alert, awake, oriented Neck: no bruit/NL carotids, no JVD Cardiovascular: CV assessment: regular rate and rhythm, no ecto py, no gallop Respiratory: clear to auscultation, no distress Abdomen: soft, non-tender Genitourinary: urinary catheter Lower extremity: LE assessment: edema, normal temperature 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 X 3 Considered stroke alert: no Wound/incision: Location: right bka Psychiatry: normal affect, normal judgment/insig ht, normal mood Results Findings/Data: Laboratory Tests 09/21 09/21 09/21 09/21 09/21 1552 1437 1107 0530 0500 Chemistry Sodium (134 - 147 mEq/L) 137 Potassium (3.4 - 5.0 mEq/L) 4.6 Chloride (100 - 108 mEq/L) 107 Carbon Dioxide (21 - 33 mEq/l) 22 Anion Gap (0 - 20) 13 BUN (7 - 18 mg/dL) 75 H Creatinine (0.6 - 1.3 mg/dL) 1.9 H Glomerular Filtr Rate (90 - 95) 40.4 L Glucose (70 - 110 mg/dL) 148 H POC Glucose (70 - 110 MG/DL) 170 H 167 H 162 H 155 H Calcium (8.0 - 10.5 mg/dL) 7.5 L Phosphorus (2.5 - 4.9 MG/DL) 5.0 H Magnesium (1.80 - 2.40 mg/dL) 2.06 09/208 Chemistry POC Glucose (70 - 110 MG/DL) 239 H Laboratory Tests 09/21 0500 Hematology WBC (4.5 - 11.0 x10 3/uL) 13.0 H RBC (4.00 - 5.60 x10 6/uL) 2.69 L Hgb (12.5 - 16.9 g/dL) 7.6 L Hct (37.5 - 50.7 %) 23.9 L MCV (81.0 - 99.0 fL) 88.8 MCH (27.0 - 33.0 pg) 28.3 MCHC (33.0 - 37.0 g/dL) 31.8 L RDW (11.5 - 14.5 %) 15.7 H Plt Count (150 - 400 x10 3/uL) 296 MPV (7.0 - 9.0 fL) 9.8 H Neut % (Auto) (56.0 - 77.0 %) 82.2 H Lymph % (Auto) (14.0 - 32.0 %) 11.3 L Boundary % (Auto) (4.8 - 9.0 %) 5.3 Eos % (Auto) (0.3 - 3.7 %) 0.2 L Baso % (Auto) (0.0 - 2.0 %) 0.1 Neut # (Auto) (2.0 - 7.6 x10 3/uL) 10.70 H Lymph # (Auto) (1.0 - 3.8 x10 3/uL) 1.47 Boundary # (Auto) (0.1 - 0.8 x10 3/uL) 0.69 Eos # (Auto) (0.0 - 0.2 x10 3/uL) 0.03 Baso # (Auto) (0.0 - 0.2 x10 3/uL) 0.01 Abs Immat Gran (auto) (0.00 - 0.03 x10 3/uL) 0. 12 H Add Manual Diff NO Immature Gran % (0.0 - 2.0 %) 0.9 Nucleated RBC % (0 - 0 %) 0.0 Nucleated RBCs # (Man) (0.0 - 0.1 x10 3/uL) 0.0 0 Laboratory Tests 09/21 0500 Chemistry Magnesium (1.80 - 2.40 mg/dL) 2.06 Diagnosis, Assessment Plan Consultants: cardiology, endocrinology, hospital ist, infectious disease, podiatry Free Text DxA P Notes Free Text DxA P Notes: Impression: 1. Debility 2. Infected right foot status post BKA 3. Bacteremia 4. Diabetes 5. Hypertension 6. Anemia 7. Acute Diastolic CHF 07/2022: Echocardiogram with normal LVEF, grade 1 diastolic dysfunction, mildly dilated LA, and no significant valvular abnormal ities Recommendation: Patient initially presented with DKA and sepsis. Diagnosed with right foot infection, underwent I D, now status post BKA. P atient had persistent bacteremia with MRSA, underwent JIMENA with negativ e findings of endocarditis. Patient now transferred to [facility] for physical therapy. Known cardiac history of hypertension and hyperlipide renetta. Vital signs stable. Echocardiogram with normal LVEF, grade 1 diastolic dysfunction, mildly dila carlos LA, and no significant valvular abnormalities. Continue to monitor bloo d pressure trend. Continue wound care and IV antibiotic therapy. Continue P T/OT. Supportive care. 09/04: Patient complaining of shortness of breath, abdominal distention and lower extremity edema. Renal function and electrolytes stable. Will give one-time dose of IV Lasix 40 mg. Blood pressure stable. P ending abdominal x-ray. Monitor intake and output. Check BMP in the morn ing. Supportive care. Plan of care discussed with patient, RN and Dr. Parham. 09/05: Patient responded well to IV Lasix , good urine output and improvement in shortness of breath. Chest x-ray ordered . Currently on Lasix 20 mg p.o. daily. Continue monitor renal function and electrolyte s. Pending lower extremity Doppler for lower extremity edema. Continue PT/O T. Supportive care. Plan of care discussed with patient, RN and Dr. Parham. 09/08: Blood pressure has been elevated, started on Coreg 3.125 mg twice daily. Continue monitor blood pressure trend and adjust medication as needed. Still having left lower extremity edema, venous Dopple r negative for DVT. continue gentle diuresis with Lasix 20 mg p.o. daily. Rec ommend Oralia wrap. Patient remains anemic, plan for EGD/colonoscopy today. Supportive care. Plan of care discussed with patient, family, RN and Dr. Parham . 09/09: Patient doing well status post EGD /colonoscopy, negative findings for GI bleed. Blood pressure improving, increased on Co reg to 12.5 mg twice daily. Elevated creatinine noted, nephrology following. No new cardiac complaint. Continue wound care. Continue PT/OT. Supportive care. Plan of care discussed with patient, RN and Dr. Parham. 09/10: Blood pressure remained stable on current regimen of Coreg. Patient continue to have left lower extremity edema. Cur rently on Lasix 20 mg daily. Creatinine 1.9 today, continue to monito r. Patient's albumin level was 1.3, it is possible that patient's lower extremity edema could be related to hypoalbuminemia leading to third spacing. Contin ue PT/OT. Supportive care. Plan of care discussed with patient, RN and Dr. Parham. 09/11: Patient doing well from cardiac standpoint . Blood pressure well controlled. Improvement in lower extremity edema with elevating leg while in bed. Creatinine 2.0 today. Denies shortness of b reath. Will hold diuretic for now and monitor renal function. Supportive care. Plan of care discussed with patient, RN and Dr. Parham. 09/12: Creatinine remains elevated at 2.4 today, antibiotic regimen also being adjusted. Patient still with lower extremity rose ma and rales on physical examination. Will check chest x-ray and limited echocardiogram for further evaluation. Check BNP. Continue hold diuretic fo r now. Supportive care. Plan of care discussed with patient, RN and Dr. Parham . 09/15: Repeat echocardiogram showed LVEF of 55 to 60%, no regional wall motion abnormalities, left ventricu lar diastolic function parameters are indeterminate, mildly dilated LA, and no pericardial effusion. BNP elevated 297. Continue to hold diuretic due to Elevate d creatinine, nephrology following and may consider renal biopsy. Continue to monitor fluid volume s tatus. Overall improvement in lower extremity with Oralia wrap. Continue physical therapy. Supportive care. Plan of care discussed with patient, RN and Dr. Parham. 09/16: Blood pressure slightly elevated, started on hydralazine 25 mg every 8 hours. Continue carvedilol monitor blood pressur e trend. Cr. 2.7 today, continue monitor. Tolerating physical therapy. E uvolemic by physical examination. Supportive care. Plan of care discu ssed with patient, RN and Dr. Parham. 09/17: Blood pressure remains elevated, likely re lated to steroid therapy. Hydralazine increased to 50 mg 3 times daily. Ne phrology managing diuretic therapy. Continue monitor renal function and pako ctrolytes. Improvement in lower extremity swelling. Patient denies chest p ain or shortness of breath. Tolerating PT/OT. Supportive care. Plan of care discussed with patient, RN and Dr. Parham. 09/18: Blood pressure remains elevated du e to steroid therapy. Continue monitor blood pressure trend, hydralazine increa sed to 75 mg 3 times daily. Responding to diuretic regimen with Lasix, good urine outpu t. Creatinine improving, 2.2 today. Continue to monitor fluid volume status. Continue physical therapy. Supportive care. Plan of care discussed with lori hart RN and Dr. Parham. 09/19: Blood pressure improving, continue hydrala zine and carvedilol. Overall improvement in fluid volume status. No n ew cardiac complaint. Continue steroid taper per nephrology. Progressing in therapy. Di scharge planning. Supportive care. Plan of care discussed with patient, RN an d Dr. Parham. 09/20: Patient doing much bet ter since started on steroid therapy, creatinine is slowly improving, blood pressure overall improvi ng, nephrology is adjusting antihypertensive medication regimen, diuretic re gimen per nephrology, overall stable cardiac status, discussed with patient an d . 09/21: Creatinine now below 2, at 1.9, blood pres sure better controlled with carvedilol and hydralazine, fluid status is improving, continue diuretic regimen per nephrology, supportive care, will follow. at 6155 RPT #:[id number] END OF REPORT 2022-09-21 13:11:00-00:00 [facility] Gastroenterology Progress Note REPORT#:[id number] REPORT STATUS: Signed DATE:09/21/22 TIME: 1311 PATIENT: KARMA ROWLAND UNIT #: [id number] [place]ED: [facility] : [place] AGE: 56 SEX: M ATTEND: Fredy Vences MD ADM AUTHOR: Kassie Avitia MD * ALL edits or amendments must be made on the el [employer]/computer document * Subjective HPI: Patient is a 56-year-old male with history of di abetes mellitus type 2 and hypertension who was initially admitted for alte red mental status and right- sided foot infection. 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 The p atient is anemic with current Hgb 7.1. He has received a total of 3 un its pRBCs during this hospitalization. KUB on 09/04 was negative for acute GI process. T he patient denies overt GIB, dark tarry stools, nausea, a bdominal pain, or vomiting. He has never had EGD or colonoscopy. 09/06: No complaints today. Hemoglobin stable. No overt GI bleed. Plan for colonoscopy and endoscopy on Thursday 09/07: No complaints today. No overt GI bleed. Pl anning for colonoscopy and endoscopy tomorrow 09/08: EGD mild gastritis. colonoscopy rectal eugenia yp s/p snare. No other abnormalities 09/09: doing well. Seen at the gym. No bleeding. 09/10: Doing well. No bleeding. tolerating diet. Movig bowels 09/11: doing well. States his leg swelling is bet ter. Tolerating diet. having normal BM 09/12: dooing well. doing work-out at the gym. To lerating diet. Normal BMs. Stable H/H 09/14-Sitting up in wheelchair, family at bedside . Denies n/v/abd pain/GIB 09/15: Doing well. H/H stable. No melena or BRBPR . No nausea or vomiting. Appetite is well 09/16: doing well. no complaints. eating well 09/17: stable H/H. No complaints. 09/18/22: H/H fluctuating but overall stable 09/19: H/H stable up to 8 today. No complaints. 09/20: Hemoglobin relatively stable. No complaint 09/21: no complaints. feeling well Objective Physical Exam HEENT: atraumatic, normocephalic Neck: full range of motion, non-tender Respiratory: symmetric expansion, no distress Abdomen: non-tender, normal bowel sounds, soft, no distention, no guarding Extremities: right BKA Considered stroke alert: no Skin: dry Diagnosis, Assessment Plan Free Text A P: 1. Positive FOBT-and anemia: The patient denies overt GIB, dark tarry stools, nausea, abdominal pain, or vomiting. He is not o n anticoagulation therapy. -Continue PPI. The patient has never had EGD or colonoscopy prior to this admission s/p EGD and colonoscopy. EGD showed mild gastrit is. Colonoscopy showed rectal polyp that was resected by snare. no evidence of bleeding. Pathology of polyp came back as tubular adenoma. recommend repeatin g colonoscopy in 5 years Anemia likely secondary to chronic kidney diseas e and mild oozing from his stump. Can consider video capsule endoscopy as outpt if evidence of dropping H/H H/H remains stable Consider reducing frequency of H/H check Will follow along Consultants: cardiology, endocrinology, hospital ist, infectious disease, podiatry at 1312 RPT #:[id number] END OF REPORT 2022-09-21 11:24:00-00:00 [facility] ([facility]) Pain Management Progress Note REPORT#:[id number] REPORT STATUS: Signed DATE:09/21/22 TIME: 1123 PATIENT: KARMA ROWLAND UNIT #: [id number] ROOM/BED: [place] [address] : 61 AGE: 56 SEX: M ATTEND: Fredy Vences MD ADM AUTHOR: Ben Klein * ALL edits or amendments must be made on the el [employer]/computer document * Ben Klein 09/21/22 1124: Subjective Chief complaint: Patient seen and examined. Chart/MAR reviewed. Patient is making satisfacto ry progress. No acute concerns. No bothersome muscle spasms or neuropathy symptoms to report. Patient being seen for Acute postoperative pain, right foot and ankle gangrene, requiring BKA, Neuropathy, Constipatio n Patient is still requiring medications to help w ith managing current problems. No fever/chills, chest pain, orthopnea, nausea/v omiting, pruritus, or hallucinations. 14 point ROS undertaken unremarkable except as n oted Objective General VS/I O: Vital Signs Date Temp Pulse Resp B/P B/P Mean Pulse Ox FiO2 09/20-09/21 36.3-36.6 80-88 14-18 148-168/79-84 102.3-112.0 97-98 Last Documented: Result Date Time Pulse Ox 98 09/21 0715 B/P 148/79 09/21 0715 B/P Mean 102.3 09/21 0715 Temp 36.6 09/21 0715 Pulse 80 09/21 0715 Resp 16 09/21 0715 O2 Delivery Room air 09/20 2321 O2 Flow Rate 2 09/08 1322 24 hour I O ending at 0700: 09/21 0700 09/20 1900 Intake Total 120 Output Total 925 2100 Balance -805 -2100 Intake, Oral 120 Number 0 0 Incontinent Voids Number Voids 0 0 Output, Urine 925 2100 PATIENT WEIGHT: Weight (lb): 167 Weight (oz): 12.35 Weight (kg): 76.100 Medications: Active Meds + DC'd Last 24 Hrs Prednisone (predniSONE) 50 MG C BK PO Hydralazine HCl (APRESOLINE) 100 MG Q8HR PO Insulin Glargine (Semglee) 19 UNIT BEDTIME SUBQ Insulin Glargine (Semglee) 17 UNIT BEDTIME SUBQ (DC) Prednisone (predniSONE) 60 MG DAILY 0600 PO (DC) Daptomycin (CUBICIN 500MG) 500 MG Q24H IV Sodium Chloride (SODIUM CHLORIDE 0.9%) 50 ML Hydralazine HCl (APRESOLINE) 75 MG Q8HR PO (DC) Insulin Human Lispro (HUMALOG) 10 UNIT AC SUBQ Meropenem (MEROPENEM) 500 MG Q8H IV Sterile Water (WATER FOR INJECTION) 10 ML Carvedilol (COREG) 25 MG C BK DIN PO Gabapentin (NEURONTIN) 100 MG Q8HR PO Oxycodone/Acetaminophen (PERCOCET 5/325MG TAB) 2 TAB Q4H PRN PRN PO Folic Acid (FOLIC ACID) 2 MG DAILY PO Multivitamins (TAB-A-MOHAN) 1 TAB DAILY PO Furosemide (LASIX 20MG INJ) 20 MG BLOOD-DOSE BET WEEN IV (CKD) Sodium Chloride (SODIUM CHLORIDE) 10 ML ASDIR IV Pantoprazole Sodium (PROTONIX) 40 MG Q12HR IV Polyethylene Glycol (MIRALAX) 17 GM DAILY PO Sennosides (Senna Lax 8.6 MG TABLET) 8.6 MG MADALYN Y PO Sodium Chloride (SODIUM CHLORIDE) 10 ML ASDIR NV N IV Amitriptyline HCl (ELAVIL) 25 MG BEDTIME PO Zinc Oxide (ZINC OXIDE 30 GM OINTMENT) 1 APPLIC DAILY TOPICAL Sterile Water (WATER FOR IRRIGATION) DRESSING CH GELACIO ASDIR PRN IRR Insulin Human Lispro (HUMALOG) 0 AC HS SUBQ Dextrose/Water (DEXTROSE 10% IN WATER) 125 ML DIR PRN IV (CKD) Dextrose/Water (DEXTROSE 10% IN WATER) 250 ML DIR PRN IV (CKD) Glucagon (GLUCAGON) 1 MG ASDIR PRN IM Lidocaine (LIDODERM) 1 PATCH DAILY TOPICAL Acetaminophen (TYLENOL) 650 MG Q6H PRN PRN PO Bisacodyl (DULCOLAX) 10 MG DAILY PRN PRN RECTAL Docusate Sodium (COLACE) 100 MG Q12H PRN PRN PO Hydralazine HCl (APRESOLINE) 10 MG Q6H PRN PRN I V Ondansetron HCl (ZOFRAN) 4 MG Q6H PRN PRN IV Physical Exam General appearance: alert, awake, oriented, no a cute distress Head/eyes: atraumatic, EOMI, normocephalic, norm al conjunctiva/sclera, PERRLA ENT: normal ear left, normal ear right Neck: full range of motion, no lymphadenopathy, supple/no meningismus Cardiovascular: regular rate rhythm Respiratory: aerating well Abdomen: soft, non-tender, no distention , active bowel sounds in all quarants. 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: 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, no sensory deficit s, CNII-XII grossly intact Considered stroke alert: no Skin: dry, intact, no rash Lymphatics: axilla normal Psychiatry: normal affect, normal judgment/insig ht Results Findings/data: Laboratory Tests: 09/21 09/21 09/20 09/20 0530 0500 1958 1555 Chemistry Sodium (134 - 147 mEq/L) 137 Potassium (3.4 - 5.0 mEq/L) 4.6 Chloride (100 - 108 mEq/L) 107 Carbon Dioxide (21 - 33 mEq/l) 22 Anion Gap (0 - 20) 13 BUN (7 - 18 mg/dL) 75 H Creatinine (0.6 - 1.3 mg/dL) 1.9 H Glomerular Filtr Rate (90 - 95) 40.4 L Glucose (70 - 110 mg/dL) 148 H POC Glucose (70 - 110 MG/DL) 155 H 239 H 159 H Calcium (8.0 - 10.5 mg/dL) 7.5 L Phosphorus (2.5 - 4.9 MG/DL) 5.0 H Magnesium (1.80 - 2.40 mg/dL) 2.06 Hematology WBC (4.5 - 11.0 x10 3/uL) 13.0 H RBC (4.00 - 5.60 x10 6/uL) 2.69 L Hgb (12.5 - 16.9 g/dL) 7.6 L Hct (37.5 - 50.7 %) 23.9 L MCV (81.0 - 99.0 fL) 88.8 MCH (27.0 - 33.0 pg) 28.3 MCHC (33.0 - 37.0 g/dL) 31.8 L RDW (11.5 - 14.5 %) 15.7 H Plt Count (150 - 400 x10 3/uL) 296 MPV (7.0 - 9.0 fL) 9.8 H Neut % (Auto) (56.0 - 77.0 %) 82.2 H Lymph % (Auto) (14.0 - 32.0 %) 11.3 L Boundary % (Auto) (4.8 - 9.0 %) 5.3 Eos % (Auto) (0.3 - 3.7 %) 0.2 L Baso % (Auto) (0.0 - 2.0 %) 0.1 Neut # (Auto) (2.0 - 7.6 x10 3/uL) 10.70 H Lymph # (Auto) (1.0 - 3.8 x10 3/uL) 1.47 Boundary # (Auto) (0.1 - 0.8 x10 3/uL) 0.69 Eos # (Auto) (0.0 - 0.2 x10 3/uL) 0.03 Baso # (Auto) (0.0 - 0.2 x10 3/uL) 0.01 Abs Immat Gran (auto) (0.00 - 0.03 x10 3/uL) 0. 12 H Add Manual Diff NO Immature Gran % (0.0 - 2.0 %) 0.9 Nucleated RBC % (0 - 0 %) 0.0 Nucleated RBCs # (Man) (0.0 - 0.1 x10 3/uL) 0.0 0 09/20 1140 Chemistry POC Glucose (70 - 110 MG/DL) 155 H Diagnosis, Assessment Plan Free text A P: A/P: Patient is a 56 year old male who presents with: Past Medical History: Prostate abscess, right fo ot foot and ankle gangrene, diabetes, hypertension, hyperlipidemia Past Surgical History: TURP, right BKA Family History: Noncontributory Social History: Denies tobacco, alcohol, or drug use Allergies: NKDA Recent prostate abscess -Status post TURP with unroofing of abscess -IV antibiotics with vancomycin until 09-24-2022 Acute postoperative pain, right foot and ankle g angrene, requiring BKA -Patient is at risk for further amputations or l oss of limb due to comorbid conditions -Status post right BKA 08/28/2022 -DC Check 10/325 1 tablet p.o. every 4 hours as needed pain scale 4 10 -DC Dilaudid 0.5 mg IV daily as needed pain scale 7 10, second line therapy () -Tylenol 650 mg p.o. every 6 hours as needed ofelia n scale 1 3 -Percocet 10/325mg every 4 hours as needed, pain scale 4-10 (09/10) -Lidoderm patch to left ankle daily -IV antibiotics with vancomycin until 09-24-2022 -Local wound care -manageable Diabetic peripheral neuropathy -amitriptyline 25mg PO QHS -Gabapentin 100mg every 8 hours (09/10) -manageable Hypertension -We will monitor hypertension and tachycardia du e to pain, and hypotension as well as bradycardia secondary over sedation with narcotics -Hydralazine as needed Elevated LFTs -08/20/22-AST 51, ALT 22 -09/03/2022-AST 15, ALT 7 -Patient will require close monitoring since he is using narcotics with Tylenol Impaired functional mobility, balance, gait, and endurance -PT/OT Antalgic/Impaired gait -PT/OT -Improve strength, endurance, self-care, gait, b alance, ADLs -Fall precautions per unit protocol -Pain medications as outlined above Constipation -We will monitor while utilizing opioid narcotic medications. -Adequate fluid intake also discussed. -Colace 100 mg p.o. twice daily as needed -Dulcolax 10 mg rectally daily as needed -Senna lax 8.6mg daily -Miralax 17gm daily -manageable Disposition: percocet 10/325 mg q6h prn pain , gabapentin 100mg q8h sent to [facility]/ pharmacy #[id number] [place], [place] [address] [address] Phone: Patient has failed conservative medical therapy. Patient will require monitoring while utilize na rcotic medications for any adverse effects, and will adjust as needed Plan of care discussed with patient and nurse All diagnostics of last 24 hours been reviewed. Risks versus benefits of opioid medications were reviewed to include, but not limited to respiratory depression, accid ental overdose, altered mental status, sudden , constipation which could result in bowel obstruction, seizures, withdrawal, dependency addiction, risk for falls . Case discussed with Dr Ng whom agrees. Thank you for the consultation. [place] [facility] NURSE: -database searched, no information found Kingsley Ng 10/08/22 2230: Attestations Physician Attestation Agree w/findings plan: The patient was seen and exa mined by Ben Klein. I personally developed the care plan, which was continued by the mid-level provider. I was immediately available. at 1129 Electronically Signed by Kingsley Ng MD on 3 at 2231 RPT #:[id number] END OF REPORT 2022-09-21 10:32:00-00:[address] [facility] ([facility]) Hospitalist Progress Note REPORT#:[id number] REPORT STATUS: Signed DATE:09/21/22 TIME: 1032 PATIENT: KARMA ROWLAND UNIT #: [id number] ROOM/BED: [place] [id number] : 61 AGE: 56 SEX: M ATTEND: Fredy Vences MD ADM AUTHOR: Wilbert Ramires MD * ALL edits or amendments must be made on the [employer]/computer document * Subjective Chief complaint: Edema LLE improved but still present Review of Systems All systems rev neg: except as noted Objective General VS/I O: Vital Signs: Date Time Temp Pulse Resp B/P B/P Pulse O2 O2 F low FiO2 Mean Ox Delivery Rate 09/21 0715 97.9 80 16 148/79 102.3 98 09/20 2321 97.3 84 14 161/79 105.9 98 Room air 09/20 1924 97.3 88 14 164/84 110.9 97 Room air 09/20 1552 97.9 80 18 168/84 112.0 97 Room air 24 hour I O ending at 0700: 09/21 0700 09/20 1900 Intake Total 120 Output Total 925 2100 Balance -805 -2100 Intake, Oral 120 Number 0 0 Incontinent Voids Number Voids 0 0 Output, Urine 925 2100 PATIENT WEIGHT: Weight (lb): 167 Weight (oz): 12.35 Weight (kg): 76.100 Medications: Active Meds + DC'd Last 24 Hrs Prednisone (predniSONE) 50 MG C BK PO Hydralazine HCl (APRESOLINE) 100 MG Q8HR PO Insulin Glargine (Semglee) 19 UNIT BEDTIME SUBQ Insulin Glargine (Semglee) 17 UNIT BEDTIME SUBQ (DC) Prednisone (predniSONE) 60 MG DAILY 0600 PO (DC) Daptomycin (CUBICIN 500MG) 500 MG Q24H IV Sodium Chloride (SODIUM CHLORIDE 0.9%) 50 ML Hydralazine HCl (APRESOLINE) 75 MG Q8HR PO (DC) Insulin Human Lispro (HUMALOG) 10 UNIT AC SUBQ Meropenem (MEROPENEM) 500 MG Q8H IV Sterile Water (WATER FOR INJECTION) 10 ML Carvedilol (COREG) 25 MG C BK DIN PO Gabapentin (NEURONTIN) 100 MG Q8HR PO Oxycodone/Acetaminophen (PERCOCET 5/325MG TAB) 2 TAB Q4H PRN PRN PO Folic Acid (FOLIC ACID) 2 MG DAILY PO Multivitamins (TAB-A-MOHAN) 1 TAB DAILY PO Furosemide (LASIX 20MG INJ) 20 MG BLOOD-DOSE BET WEEN IV (CKD) Sodium Chloride (SODIUM CHLORIDE) 10 ML ASDIR IV Pantoprazole Sodium (PROTONIX) 40 MG Q12HR IV Polyethylene Glycol (MIRALAX) 17 GM DAILY PO Sennosides (Senna Lax 8.6 MG TABLET) 8.6 MG MADALYN Y PO Sodium Chloride (SODIUM CHLORIDE) 10 ML ASDIR NV N IV Amitriptyline HCl (ELAVIL) 25 MG BEDTIME PO Zinc Oxide (ZINC OXIDE 30 GM OINTMENT) 1 APPLIC DAILY TOPICAL Sterile Water (WATER FOR IRRIGATION) DRESSING CH GELACIO ASDIR PRN IRR Insulin Human Lispro (HUMALOG) 0 AC HS SUBQ Dextrose/Water (DEXTROSE 10% IN WATER) 125 ML DIR PRN IV (CKD) Dextrose/Water (DEXTROSE 10% IN WATER) 250 ML DIR PRN IV (CKD) Glucagon (GLUCAGON) 1 MG ASDIR PRN IM Lidocaine (LIDODERM) 1 PATCH DAILY TOPICAL Acetaminophen (TYLENOL) 650 MG Q6H PRN PRN PO Bisacodyl (DULCOLAX) 10 MG DAILY PRN PRN RECTAL Docusate Sodium (COLACE) 100 MG Q12H PRN PRN PO Hydralazine HCl (APRESOLINE) 10 MG Q6H PRN PRN I V Ondansetron HCl (ZOFRAN) 4 MG Q6H PRN PRN IV Physical Exam General appearance: alert, awake, oriented Head/Eyes: atraumatic, normocephalic ENT: moist mucosal membranes Neck: no JVD Cardiovascular: normal heart sounds, regular rat e rhythm Respiratory: aerating well, clear to auscultatio n Abdomen: non-tender, normal bowel sounds Genitourinary: no bladder distention Extremities: edema (1+ pitting edema to thigh), moves all, normal capillary refill Musculoskeletal: normal inspection 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 X 3, 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 Considered stroke alert: no Skin: dry, intact Psychiatry: normal affect, normal judgment/insig ht Results Findings/Data: Laboratory Tests 09/21 09/21 09/20 09/20 09/20 0530 0500 1958 1555 1140 Chemistry Sodium (134 - 147 mEq/L) 137 Potassium (3.4 - 5.0 mEq/L) 4.6 Chloride (100 - 108 mEq/L) 107 Carbon Dioxide (21 - 33 mEq/l) 22 Anion Gap (0 - 20) 13 BUN (7 - 18 mg/dL) 75 H Creatinine (0.6 - 1.3 mg/dL) 1.9 H Glomerular Filtr Rate (90 - 95) 40.4 L Glucose (70 - 110 mg/dL) 148 H POC Glucose (70 - 110 MG/DL) 155 H 239 H 159 H 155 H Calcium (8.0 - 10.5 mg/dL) 7.5 L Phosphorus (2.5 - 4.9 MG/DL) 5.0 H Magnesium (1.80 - 2.40 mg/dL) 2.06 Laboratory Tests 09/21 0500 Hematology WBC (4.5 - 11.0 x10 3/uL) 13.0 H RBC (4.00 - 5.60 x10 6/uL) 2.69 L Hgb (12.5 - 16.9 g/dL) 7.6 L Hct (37.5 - 50.7 %) 23.9 L MCV (81.0 - 99.0 fL) 88.8 MCH (27.0 - 33.0 pg) 28.3 MCHC (33.0 - 37.0 g/dL) 31.8 L RDW (11.5 - 14.5 %) 15.7 H Plt Count (150 - 400 x10 3/uL) 296 MPV (7.0 - 9.0 fL) 9.8 H Neut % (Auto) (56.0 - 77.0 %) 82.2 H Lymph % (Auto) (14.0 - 32.0 %) 11.3 L Boundary % (Auto) (4.8 - 9.0 %) 5.3 Eos % (Auto) (0.3 - 3.7 %) 0.2 L Baso % (Auto) (0.0 - 2.0 %) 0.1 Neut # (Auto) (2.0 - 7.6 x10 3/uL) 10.70 H Lymph # (Auto) (1.0 - 3.8 x10 3/uL) 1.47 Boundary # (Auto) (0.1 - 0.8 x10 3/uL) 0.69 Eos # (Auto) (0.0 - 0.2 x10 3/uL) 0.03 Baso # (Auto) (0.0 - 0.2 x10 3/uL) 0.01 Abs Immat Gran (auto) (0.00 - 0.03 x10 3/uL) 0. 12 H Add Manual Diff NO Immature Gran % (0.0 - 2.0 %) 0.9 Nucleated RBC % (0 - 0 %) 0.0 Nucleated RBCs # (Man) (0.0 - 0.1 x10 3/uL) 0.0 0 Diagnosis, Assessment Plan Consultants: cardiology, endocrinology, hospital ist, infectious disease, podiatry Free Text DxA P Notes Free text DxA P notes: Gangrene of right foot s/p Below- knee amputatio n Prostate abscess MRSA bacteremia Hx of Diabetes, Diabetic neuropathy HTN ERIKA PLANS: Continue with PT/OT per primary Wound care and Abx as per ID Hepain PPX IV iron BS better but likely to incr ease with re-initiation of steroids x3 days started by Nephrology for AIN - Endo adjusting insulin pain control creatinine stable. renal following Edema about the same, Lasix as per renal Hgb stabilized. continue to monitor BP elevated. continue to adjust meds Electronically Signed by Wilbert Ramires MD on at 1402 RPT #:[id number] END OF REPORT 2022-09-21 10:25:00-00:00 [facility] ([facility]) Podiatry Progress Note REPORT#:[id number] REPORT STATUS: Signed DATE:09/21/22 TIME: 1025 PATIENT: KARMA ROWLAND UNIT #: [id number] ROOM/BED: [place] [address] : 63 AGE: 56 SEX: M ATTEND: Fredy Vences MD ADM AUTHOR: Francisco Singh DPM * ALL edits or amendments must be made on the [employer]/computer document * Subjective Chief complaint: left heel ulcer. left ankle pain HPI: Patient seen at bedside this morning. No acute o vernight events. No changes since yesterday. Review of Systems Constitutional: Denies: chills, fatigue, fever, generalized weak ness. Respiratory: Denies: OVIEDO (dyspnea on exertion), hemoptysis, n on productive cough, SOB, wheezing. Cardiovascular: Denies: chest pain, OVIEDO (dyspnea on exertion), p alpitations. GI: Denies: abdominal pain, constipation, diarrhea, nausea, vomiting. Neuro: Denies: change in LOC, confusion, dizziness, hea dache, lightheaded. Objective General VS: Last Documented: Result Date Time Pulse Ox 98 09/21 07 B/P 148/79 09/21 0715 B/P Mean 102.3 09/21 0715 Temp 97.9 09/21 0715 Pulse 80 09/21 0715 Resp 16 09/21 0715 O2 Delivery Room air 09/20 2321 O2 Flow Rate 2 09/08 1322 PATIENT WEIGHT: Weight (lb): 167 Weight (oz): 12.35 Weight (kg): 76.100 Medications: Active Meds + DC'd Last 24 Hrs Prednisone (predniSONE) 50 MG C BK PO Hydralazine HCl (APRESOLINE) 100 MG Q8HR PO Insulin Glargine (Semglee) 19 UNIT BEDTIME SUBQ Insulin Glargine (Semglee) 17 UNIT BEDTIME SUBQ (DC) Prednisone (predniSONE) 60 MG DAILY 0600 PO (DC) Daptomycin (CUBICIN 500MG) 500 MG Q24H IV Sodium Chloride (SODIUM CHLORIDE 0.9%) 50 ML Hydralazine HCl (APRESOLINE) 75 MG Q8HR PO (DC) Insulin Human Lispro (HUMALOG) 10 UNIT AC SUBQ Meropenem (MEROPENEM) 500 MG Q8H IV Sterile Water (WATER FOR INJECTION) 10 ML Carvedilol (COREG) 25 MG C BK DIN PO Gabapentin (NEURONTIN) 100 MG Q8HR PO Oxycodone/Acetaminophen (PERCOCET 5/325MG TAB) 2 TAB Q4H PRN PRN PO Folic Acid (FOLIC ACID) 2 MG DAILY PO Multivitamins (TAB-A-MOHAN) 1 TAB DAILY PO Furosemide (LASIX 20MG INJ) 20 MG BLOOD-DOSE BET WEEN IV (CKD) Sodium Chloride (SODIUM CHLORIDE) 10 ML ASDIR IV Pantoprazole Sodium (PROTONIX) 40 MG Q12HR IV Polyethylene Glycol (MIRALAX) 17 GM DAILY PO Sennosides (Senna Lax 8.6 MG TABLET) 8.6 MG MADALYN Y PO Sodium Chloride (SODIUM CHLORIDE) 10 ML ASDIR NV N IV Amitriptyline HCl (ELAVIL) 25 MG BEDTIME PO Zinc Oxide (ZINC OXIDE 30 GM OINTMENT) 1 APPLIC DAILY TOPICAL Sterile Water (WATER FOR IRRIGATION) DRESSING CH GELACIO ASDIR PRN IRR Insulin Human Lispro (HUMALOG) 0 AC HS SUBQ Dextrose/Water (DEXTROSE 10% IN WATER) 125 ML DIR PRN IV (CKD) Dextrose/Water (DEXTROSE 10% IN WATER) 250 ML DIR PRN IV (CKD) Glucagon (GLUCAGON) 1 MG ASDIR PRN IM Lidocaine (LIDODERM) 1 PATCH DAILY TOPICAL Acetaminophen (TYLENOL) 650 MG Q6H PRN PRN PO Bisacodyl (DULCOLAX) 10 MG DAILY PRN PRN RECTAL Docusate Sodium (COLACE) 100 MG Q12H PRN PRN PO Hydralazine HCl (APRESOLINE) 10 MG Q6H PRN PRN I V Ondansetron HCl (ZOFRAN) 4 MG Q6H PRN PRN IV I O: 24 hour I O ending at 0700: 30 0700 04/ 1900 Intake Total 120 Output Total 925 2100 Balance -805 -2100 Intake, Oral 120 Number 0 0 Incontinent Voids Number Voids 0 0 Output, Urine 925 2100 Dietitian nutrition assessment The data set between the solid lines has been im ported from the dietitian's assessment. BMI Calculated: 27.1 Nutrition related diagnosis: Nutrition diagnosis details: Nutrition problem: Altered nutrition labs Nutrition etiology: DM Nutrition signs and symptoms: HYPER/HYPOGLYCEMIA , A1C >14 Nutrition prescription: CONTINUE RENAL DM DIET Dietitian name: You Palmer, DIET Assessment completed: 09/18/22 Physical Exam General appearance: no acute distress, no respir atory distress Wound/incision: Location: left foot Site condition: dp/pt 2/4 left. light touch dec reased left foot. ulcer starting at posterior left heel. eccymosis noted . early likely stage 1. left ankle has edema. pain with aggressive ROM left a nkle. dorsal left midfoot is starting to have tissue injury LE vascular pulse assess: 2+ L posterior tibialis, 2+ L dorsalis pedis Considered stroke alert: no Ulcer: Location: DTI dorsal left midfoot Results Findings/Data: Laboratory Tests: 09/21 09/21 09/20 09/20 0530 0500 1958 1555 Chemistry Sodium (134 - 147 mEq/L) 137 Potassium (3.4 - 5.0 mEq/L) 4.6 Chloride (100 - 108 mEq/L) 107 Carbon Dioxide (21 - 33 mEq/l) 22 Anion Gap (0 - 20) 13 BUN (7 - 18 mg/dL) 75 H Creatinine (0.6 - 1.3 mg/dL) 1.9 H Glomerular Filtr Rate (90 - 95) 40.4 L Glucose (70 - 110 mg/dL) 148 H POC Glucose (70 - 110 MG/DL) 155 H 239 H 159 H Calcium (8.0 - 10.5 mg/dL) 7.5 L Phosphorus (2.5 - 4.9 MG/DL) 5.0 H Magnesium (1.80 - 2.40 mg/dL) 2.06 Hematology WBC (4.5 - 11.0 x10 3/uL) 13.0 H RBC (4.00 - 5.60 x10 6/uL) 2.69 L Hgb (12.5 - 16.9 g/dL) 7.6 L Hct (37.5 - 50.7 %) 23.9 L MCV (81.0 - 99.0 fL) 88.8 MCH (27.0 - 33.0 pg) 28.3 MCHC (33.0 - 37.0 g/dL) 31.8 L RDW (11.5 - 14.5 %) 15.7 H Plt Count (150 - 400 x10 3/uL) 296 MPV (7.0 - 9.0 fL) 9.8 H Neut % (Auto) (56.0 - 77.0 %) 82.2 H Lymph % (Auto) (14.0 - 32.0 %) 11.3 L Boundary % (Auto) (4.8 - 9.0 %) 5.3 Eos % (Auto) (0.3 - 3.7 %) 0.2 L Baso % (Auto) (0.0 - 2.0 %) 0.1 Neut # (Auto) (2.0 - 7.6 x10 3/uL) 10.70 H Lymph # (Auto) (1.0 - 3.8 x10 3/uL) 1.47 Boundary # (Auto) (0.1 - 0.8 x10 3/uL) 0.69 Eos # (Auto) (0.0 - 0.2 x10 3/uL) 0.03 Baso # (Auto) (0.0 - 0.2 x10 3/uL) 0.01 Abs Immat Gran (auto) (0.00 - 0.03 x10 3/uL) 0. 12 H Add Manual Diff NO Immature Gran % (0.0 - 2.0 %) 0.9 Nucleated RBC % (0 - 0 %) 0.0 Nucleated RBCs # (Man) (0.0 - 0.1 x10 3/uL) 0.0 0 09/20 1140 Chemistry POC Glucose (70 - 110 MG/DL) 155 H Diagnosis, Assessment Plan Free Text A P: DM with neuropathy early decub ulcer left heel OA/edema left ankle early ulcer/DTI dorsal left midfoot Labs reviewed. VSS zinc oxide to foot and heel foam to heel on IV abx on PO gabapentin offloading boot oralia wraps to ankle, only when OOB with therapy. zinc oxide interchange with bactroban to dorsal left foot Dr. Pedersen will follow at 1720 RPT #:[id number] END OF REPORT 2022-09-21 07:39:00-00:00 [facility] ([facility] Nephrology Progress Note REPORT#:[id number] REPORT STATUS: Signed DATE:09/21/22 TIME: 738 PATIENT: KARMA ROWLAND UNIT #: [id number] ROOM/BED: [place] [address] : 63 AGE: 56 SEX: M ATTEND: Fredy Vences MD ADM AUTHOR: Barrera Ramírez MD * ALL edits or amendments must be made on the [employer]/computer document * Subjective Chief complaint: Infected foot HPI: Patient seen and evaluated on 09/09/2022, note [facility], records reviewed and orders placed on 09/08/2022, 56-year-old male with history of diabetes mellitus type 2, hypertension and per ipheral vascular disease who was initially admitted to acute care with altered mental status and rig ht foot infection/gangrene, 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 Patient had persistent anemia requiring blood transfusion. H is fecal occult blood was positive and his creatinine was 1.2 and increase d to 1.4 today, laboratories today showed hemoglobin 8.5, platelet 231, blood count 9.1, sodium 135, potassium 4.6, CO2 22, BUN 22, creatinin e 1.4. Renal consult was requested for evaluation management of pako vated BUN and creatinine and if his decreased GFR is contributing to his anemia. Patient reports: Yes: complaints. Comments: Patient seen and evaluated, HPI no change from i nitial, feels okay. Review of Systems Constitutional: Reports: fatigue. Denies: chills, fever. Skin: Denies: abrasion, bruising. Allergy/Immun: Denies: hives, itching. Eyes: Denies: redness, discharge. ENT: Denies: ear drainage, ear ringing. Respiratory: Denies: non productive cough, SOB. Cardiovascular: Denies: chest pain. Objective General VS/I O: Vital Signs: Date Time Temp Pulse Resp B/P B/P Pulse O2 O2 F low FiO2 Mean Ox Delivery Rate 09/21 0715 36.6 80 16 148/79 102.3 98 09/20 2321 36.3 84 14 161/79 105.9 98 Room air 09/20 1924 36.3 88 14 164/84 110.9 97 Room air 09/20 1552 36.6 80 18 168/84 112.0 97 Room air 24 hour I O ending at 0700: 09/21 0700 09/20 1900 Intake Total 120 Output Total 925 2100 Balance -805 -2100 Intake, Oral 120 Number 0 0 Incontinent Voids Number Voids 0 0 Output, Urine 925 2100 PATIENT WEIGHT: Weight (lb): 167 Weight (oz): 12.35 Weight (kg): 76.100 Medications Active Meds + DC'd Last 24 Hrs Insulin Glargine (Semglee) 19 UNIT BEDTIME SUBQ Insulin Glargine (Semglee) 17 UNIT BEDTIME SUBQ (DC) Prednisone (predniSONE) 60 MG DAILY 0600 PO (DC) Daptomycin (CUBICIN 500MG) 500 MG Q24H IV Sodium Chloride (SODIUM CHLORIDE 0.9%) 50 ML Hydralazine HCl (APRESOLINE) 75 MG Q8HR PO Insulin Human Lispro (HUMALOG) 10 UNIT AC SUBQ Meropenem (MEROPENEM) 500 MG Q8H IV Sterile Water (WATER FOR INJECTION) 10 ML Carvedilol (COREG) 25 MG C BK DIN PO Gabapentin (NEURONTIN) 100 MG Q8HR PO Oxycodone/Acetaminophen (PERCOCET 5/325MG TAB) 2 TAB Q4H PRN PRN PO Folic Acid (FOLIC ACID) 2 MG DAILY PO Multivitamins (TAB-A-MOHAN) 1 TAB DAILY PO Furosemide (LASIX 20MG INJ) 20 MG BLOOD-DOSE BET WEEN IV (CKD) Sodium Chloride (SODIUM CHLORIDE) 10 ML ASDIR IV Pantoprazole Sodium (PROTONIX) 40 MG Q12HR IV Polyethylene Glycol (MIRALAX) 17 GM DAILY PO Sennosides (Senna Lax 8.6 MG TABLET) 8.6 MG MADALYN Y PO Sodium Chloride (SODIUM CHLORIDE) 10 ML ASDIR NV N IV Amitriptyline HCl (ELAVIL) 25 MG BEDTIME PO Zinc Oxide (ZINC OXIDE 30 GM OINTMENT) 1 APPLIC DAILY TOPICAL Sterile Water (WATER FOR IRRIGATION) DRESSING CH GELACIO ASDIR PRN IRR Insulin Human Lispro (HUMALOG) 0 AC HS SUBQ Dextrose/Water (DEXTROSE 10% IN WATER) 125 ML DIR PRN IV (CKD) Dextrose/Water (DEXTROSE 10% IN WATER) 250 ML DIR PRN IV (CKD) Glucagon (GLUCAGON) 1 MG ASDIR PRN IM Lidocaine (LIDODERM) 1 PATCH DAILY TOPICAL Acetaminophen (TYLENOL) 650 MG Q6H PRN PRN PO Bisacodyl (DULCOLAX) 10 MG DAILY PRN PRN RECTAL Docusate Sodium (COLACE) 100 MG Q12H PRN PRN PO Hydralazine HCl (APRESOLINE) 10 MG Q6H PRN PRN I V Ondansetron HCl (ZOFRAN) 4 MG Q6H PRN PRN IV Physical Exam General appearance: alert, no acute distress Head/eyes: atraumatic, normocephalic ENT: normal nose Neck: non-tender, supple/no meningismus Cardiovascular: normal heart sounds, no rub Respiratory: aerating well, symmetric expansion Abdomen: non-tender, soft Genitourinary: no flank pain Extremities: non-tender, no edema Musculoskeletal: no CVA tenderness, no tendernes s 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, 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 Considered stroke alert: no Skin: dry, intact Results Findings/Data: Laboratory Tests 09/21 09/20 09/20 09/20 09/20 0530 1958 1555 1140 0922 Chemistry POC Glucose (70 - 110 MG/DL) 155 H 239 H 159 H 155 H 299 H 09/20 09/20 09/19 09/19 09/19 0505 0458 1921 1544 1133 Chemistry Sodium (134 - 147 mEq/L) 136 Potassium (3.4 - 5.0 mEq/L) 4.2 Chloride (100 - 108 mEq/L) 107 Carbon Dioxide (21 - 33 mEq/l) 21 Anion Gap (0 - 20) 12 BUN (7 - 18 mg/dL) 76 H Creatinine (0.6 - 1.3 mg/dL) 2.2 H Glomerular Filtr Rate (90 - 95) 33.9 L Glucose (70 - 110 mg/dL) 301 H POC Glucose (70 - 110 MG/DL) 277 H 236 H 224 H 96 Calcium (8.0 - 10.5 mg/dL) 7.4 L Phosphorus (2.5 - 4.9 MG/DL) 5.4 H Magnesium (1.80 - 2.40 mg/dL) 2.05 09/19 09/19 09/18 09/18 09/18 0501 0448 2151 1933 1611 Chemistry Sodium (134 - 147 mEq/L) 139 Potassium (3.4 - 5.0 mEq/L) 3.8 Chloride (100 - 108 mEq/L) 108 Carbon Dioxide (21 - 33 mEq/l) 22 Anion Gap (0 - 20) 13 BUN (7 - 18 mg/dL) 72 H Creatinine (0.6 - 1.3 mg/dL) 2.3 H Glomerular Filtr Rate (90 - 95) 32.1 L Glucose (70 - 110 mg/dL) 61 L POC Glucose (70 - 110 MG/DL) 162 H 103 70 118 H Calcium (8.0 - 10.5 mg/dL) 7.5 L Phosphorus (2.5 - 4.9 MG/DL) 5.0 H Magnesium (1.80 - 2.40 mg/dL) 1.69 L 09/18 09/18 1102 0906 Chemistry POC Glucose (70 - 110 MG/DL) 80 171 H Laboratory Tests 09/21 09/20 09/19 0500 0505 0501 Hematology WBC (4.5 - 11.0 x10 3/uL) 13.0 H 12.3 H 13.3 H RBC (4.00 - 5.60 x10 6/uL) 2.69 L 2.66 L 2.79 L Hgb (12.5 - 16.9 g/dL) 7.6 L 7.6 L 8.0 L Hct (37.5 - 50.7 %) 23.9 L 23.9 L 25.0 L MCV (81.0 - 99.0 fL) 88.8 89.8 89.6 MCH (27.0 - 33.0 pg) 28.3 28.6 28.7 MCHC (33.0 - 37.0 g/dL) 31.8 L 31.8 L 32.0 L RDW (11.5 - 14.5 %) 15.7 H 15.3 H 14.9 H Plt Count (150 - 400 x10 3/uL) 296 302 347 MPV (7.0 - 9.0 fL) 9.8 H 9.2 H 9.1 H Neut % (Auto) (56.0 - 77.0 %) 82.2 H 79.7 H 71 .4 Lymph % (Auto) (14.0 - 32.0 %) 11.3 L 13.0 L 16 .5 Boundary % (Auto) (4.8 - 9.0 %) 5.3 6.2 8.4 Eos % (Auto) (0.3 - 3.7 %) 0.2 L 0.2 L 2.4 Baso % (Auto) (0.0 - 2.0 %) 0.1 0.1 0.2 Neut # (Auto) (2.0 - 7.6 x10 3/uL) 10.70 H 9.8 4 H 9.50 H Lymph # (Auto) (1.0 - 3.8 x10 3/uL) 1.47 1.60 2 .19 Boundary # (Auto) (0.1 - 0.8 x10 3/uL) 0.69 0.76 1. 11 H Eos # (Auto) (0.0 - 0.2 x10 3/uL) 0.03 0.03 0.3 2 H Baso # (Auto) (0.0 - 0.2 x10 3/uL) 0.01 0.01 0. 02 Abs Immat Gran (auto) (0.00 - 0.03 x10 3/uL) 0. 12 H 0.10 H 0.14 H Add Manual Diff NO NO NO Immature Gran % (0.0 - 2.0 %) 0.9 0.8 1.1 Nucleated RBC % (0 - 0 %) 0.0 0.0 0.0 Nucleated RBCs # (Man) (0.0 - 0.1 x10 3/uL) 0.0 0 0.00 0.00 Laboratory Tests 09/21 09/20 09/20 09/20 09/20 0530 1958 1555 1140 0922 Chemistry POC Glucose (70 - 110 MG/DL) 155 H 239 H 159 H 155 H 299 H Laboratory Tests 09/21 0500 Hematology WBC (4.5 - 11.0 x10 3/uL) 13.0 H RBC (4.00 - 5.60 x10 6/uL) 2.69 L Hgb (12.5 - 16.9 g/dL) 7.6 L Hct (37.5 - 50.7 %) 23.9 L MCV (81.0 - 99.0 fL) 88.8 MCH (27.0 - 33.0 pg) 28.3 MCHC (33.0 - 37.0 g/dL) 31.8 L RDW (11.5 - 14.5 %) 15.7 H Plt Count (150 - 400 x10 3/uL) 296 MPV (7.0 - 9.0 fL) 9.8 H Neut % (Auto) (56.0 - 77.0 %) 82.2 H Lymph % (Auto) (14.0 - 32.0 %) 11.3 L Boundary % (Auto) (4.8 - 9.0 %) 5.3 Eos % (Auto) (0.3 - 3.7 %) 0.2 L Baso % (Auto) (0.0 - 2.0 %) 0.1 Neut # (Auto) (2.0 - 7.6 x10 3/uL) 10.70 H Lymph # (Auto) (1.0 - 3.8 x10 3/uL) 1.47 Boundary # (Auto) (0.1 - 0.8 x10 3/uL) 0.69 Eos # (Auto) (0.0 - 0.2 x10 3/uL) 0.03 Baso # (Auto) (0.0 - 0.2 x10 3/uL) 0.01 Abs Immat Gran (auto) (0.00 - 0.03 x10 3/uL) 0. 12 H Add Manual Diff NO Immature Gran % (0.0 - 2.0 %) 0.9 Nucleated RBC % (0 - 0 %) 0.0 Nucleated RBCs # (Man) (0.0 - 0.1 x10 3/uL) 0.0 0 Diagnosis, Assessment Plan Free Text A P: Patient seen and evaluated, discussed with care team, images and laboratories reviewed. Diabetes mellitus: Insulin: Monitor bloo d sugar closely and adjust medications as needed, followed by endocrinology. Hypertension: Blood pressure is not well controlled, increase Coreg to 12.5 mg p.o. twice daily: Monitor blood pressure closely and adjust medications as needed Right foot gangrene/infection status post right BKA Anemia: Status post EGD and colonoscopy which we re negative for active GI bleeding, patient had work-up in March 2 023 which showed very high B12, normal folate, very low iron satura tion but very high ferritin which was likely related to his infection, likely patient is very iron de ficient, will repeat lab and give IV iron if needed. We will check serum immu nofixation. Acute kidney injury: We will check renal bladder ultrasound, check postvoid residual, check urine protein creatinine ratio Hypomagnesemia: We will supplement 09/10/2022 laboratory this mo rning showed sodium 135, potassium 4.2, CO2 21, BUN 25, creatinine 1.9 continues to worsen, etiology unclear, however his development some eosinophili a not sure if he is developing AIN, suggest changing cefepime to a different class of antibiotic if p ossible, will check renal bladder ultrasound 09/11/2022 laboratory this mo rning showed sodium 134, potassium 4.3, CO2 22, BUN 26, creatinine 2 up from 1.9, hopefully creatini ne is plateauing, renal ultrasound negative. 09/12/2022 laboratory this mo rning showed sodium 134, potassium 4.2, CO2 20, BUN 31, creatinine 2.4 continues to worsen, discussed with ID, AIN is probably the etiology of the unexplained deterioration of his renal function, antibiotics to be adjusted by infectious disease, will give Solu-Medrol 125 mg IV daily for 3 days. Significant lower extremity edema, will st art Lasix 20 mg p.o. twice daily. 09.13.23: pt was seen and examined. Very thirsty. serum creatinine is worsening today. Vancomycin was stopped yesterday and Solu medrol was started. Mild hypovolemic hyponatremia. Will DC lasix and monitor his renal functions. BP is well controlled. 09.14.23: pt was seen and exa mined. Feels better but still thirsty. I stopped his lasix. will start NS at 75 c c for one Leter only. serum creatinine is improving. Received three doses of Solu Medrol a well. BP i s on the higher side, likely secondary to steroids. will monitor for now. mild hypovelmic hyponatremia. also could be secondary to hyperglycemia. 09/15/2022 we will give additional dose of Solu-M edrol 125 mg IV today, laboratory this morning show ed sodium 132, potassium 4.7, CO2 17, chloride 105, BUN 38, creatinine 2.9, glucose 312, hem oglobin 8.2, platelet 341, blood count 8.7, needs better blood sugar control, if creati nine does not start improving the next couple days will plan for kidney biopsy 09/16/2022 laboratory this mo rning showed sodium 135, potassium 4.5, CO2 20, BUN 60, creatinine 2.7, better down from 2.9, hemogl obin 7.6, platelet 360, blood count 9.5, will give prednisone 80 mg p.o. today , blood pressure is elevated, will add hydralazine 25 mg p .o. 3 times daily, scrotal and LE swelling will give Lasix 40 mg IV x 3 09/17/2022 blood pressure sti ll elevated, will increase hydralazine to 50 mg p.o. 3 times daily, will give 80 mg of prednisone today, urine output with Lasix 4125 , laboratory this morning showed sodium 136, pot assium 4.5, CO2 21, BUN 66, creatinine 2.4 down from 2.7, will give 3 more doses of IV Lasix 40 mg every 8 hours 09/18/2022 laboratory this mo rning showed sodium 138, potassium 4.1, CO2 21, BUN 66, creatinine 2.2 continues to improve, urine o utput 2.7 L, hemoglobin 7.6, platelet 341, blood count 10.6, will give Lasix 40 mg IV every 8 for 3 doses, start prednisone 60 mg p.o. daily for 3 days, increase hydralazine to 75 mg p.o. 3 times daily. 09/19/2022 blood pressure better, sodium 139, pot assium 3.8, CO2 22, BUN 72 up from 66, creatinine 2.3 up from 2.2, will hold o ff diuretics, urine output reported 2 L, magnesium 1.69 we will give magnesium sulfate 2 g IV x1, continue prednisone. 09/20/2022 laboratory this mo rning showed sodium 136, potassium 4.2, CO2 21, BUN 76, creatinine 2.2 down from 2.3, hemoglobin 7.6, platelet 302, blood count 12.3 , continue off diuretics 09/21/2022 blood pressure sti ll elevated will increase hydralazine to 100 mg p.o. 3 times daily, hemoglobin 7.6, platelet 296, blo od count 13, urine output reported 3025, will start prednisone 50 mg p.o. daily for 3 days, sodium 137, potassium 4.6, CO2 22, BUN 75, creatinine 1.9 do wn from 2.2 continues to improve. Consultants: cardiology, endocrinology, hospital ist, infectious disease, podiatry Electronically Signed by Barrera Ramírez MD on at 1247 RPT #:[id number] END OF REPORT 2022-09-21 06:03:00-00:00 [facility] [place] ([facility]) Rehab Progress Note REPORT#:[id number] REPORT STATUS: Signed DATE:09/21/22 TIME: 602 PATIENT: KARMA ROWLAND UNIT #: [id number] ROOM/BED: [place] [address] : 63 AGE: 56 SEX: M ATTEND: Fredy Vences MD ADM AUTHOR: Guero Candelaria * ALL edits or amendments must be made on the [employer]/computer document * Subjective Chief complaint: Rehab follow-up Doing better States edema improving Eating 75-100% at bedside + BM Denies MCBRIDE/N/V/D/CP 14 systems reviewed and neg. except that above. History of present illness: 56 yo HAM with long h/o DM, and HTN who was admitted for fever, flulike symptoms and altered mental status on 08/18. He was doing well until about 3 days prior to admission when he noted blister to have formed o n the dorsum of his foot. His foot started progressively getting more swollen and the blisters started enlarging and extending to his lateral f oot and ankle. He started feeling weak and nauseated. He was noted to have altered mentation and was brought to our ER. He was noted to be in DKA with Blood sugars grea ter than 600. He was seen by podiatry and surgery for BLE wounds and infectio n. He was treated in ICU for sepsis and DKA. He underwent incisional and excisional debridement of right foot and right ankle by podiatry. Patient also found to have prostate abscess underwent transrectal ultrasound aspiration of a bscess and transurethral resection of prostate and unroofing of abscess b y urology Dr. Bass. Endocrinology treated the DKA and blood sugars m uch improved. Patient's right foot was not salvageable and patient und erwent right BKA by Dr. LEROY on 08/28. Patient blood cultures showe d MRSA. Patient continued on antibiotics as per ID. MRI of the pelvis and foot completed. Patient r equired multiple PRBCs for anemia. Patient was found to have a possible small hematoma of the left calf on ultrasound. He complains of pain and swelling of the left ankle. Patient hemodynamically stable and plans are to be transferred to stepdown unit. He is on heparin subcu for VTE. Af ter surgery he is now being mobilized by PT and OT. He is wearing a [employer] orthotic for right knee /BKA protection. Prior to admission the patient was independent living in a single-story house with his spouse with a few steps up to front and back doo r. 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 is at bedside. Patient denies nausea, vomiting, fever, chills, chest pain, shortness of breath with diz ziness. He is requiring IV Dilaudid for pain control. Mental status back to baseline. Pt is progressing slowly with therapy d/t weakness and pain, self care deficit, decreased endurance and balance, and decreased functional mobility. Pt requiring acute inpt rehab for multidiscipli nary team of nursing, therapy, and physicians. Pt is willing and able to partici- kathleen in 3 hr/day inpt rehab to d/c home safely. Pt' s prior level of function was independent. Objective General VS: Vital Signs: Date Time Temp Pulse Resp B/P B/P Pulse O2 O2 Flow FiO2 Mean Ox Delivery Rate 09/20 2321 97.3 84 14 161/79 105.9 98 Room air 09/20 1924 97.3 88 14 164/84 110.9 97 Room air 09/20 1552 97.9 80 18 168/84 112.0 97 Room air 09/20 0719 97.7 86 18 149/74 98.7 100 Room air PATIENT WEIGHT: Weight (lb): 167 Weight (oz): 12.35 Weight (kg): 76.100 Medications: Active Meds + DC'd Last 24 Hrs Insulin Glargine (Semglee) 19 UNIT BEDTIME SUBQ Insulin Glargine (Semglee) 17 UNIT BEDTIME SUBQ (DC) Prednisone (predniSONE) 60 MG DAILY 0600 PO (DC) Daptomycin (CUBICIN 500MG) 500 MG Q24H IV Sodium Chloride (SODIUM CHLORIDE 0.9%) 50 ML Hydralazine HCl (APRESOLINE) 75 MG Q8HR PO Insulin Human Lispro (HUMALOG) 10 UNIT AC SUBQ Meropenem (MEROPENEM) 500 MG Q8H IV Sterile Water (WATER FOR INJECTION) 10 ML Carvedilol (COREG) 25 MG C BK DIN PO Gabapentin (NEURONTIN) 100 MG Q8HR PO Oxycodone/Acetaminophen (PERCOCET 5/325MG TAB) 2 TAB Q4H PRN PRN PO Folic Acid (FOLIC ACID) 2 MG DAILY PO Multivitamins (TAB-A-MOHAN) 1 TAB DAILY PO Furosemide (LASIX 20MG INJ) 20 MG BLOOD-DOSE BET WEEN IV (CKD) Sodium Chloride (SODIUM CHLORIDE) 10 ML ASDIR IV Pantoprazole Sodium (PROTONIX) 40 MG Q12HR IV Polyethylene Glycol (MIRALAX) 17 GM DAILY PO Sennosides (Senna Lax 8.6 MG TABLET) 8.6 MG MADALYN Y PO Sodium Chloride (SODIUM CHLORIDE) 10 ML ASDIR NV N IV Amitriptyline HCl (ELAVIL) 25 MG BEDTIME PO Zinc Oxide (ZINC OXIDE 30 GM OINTMENT) 1 APPLIC DAILY TOPICAL Sterile Water (WATER FOR IRRIGATION) DRESSING CH GELACIO ASDIR PRN IRR Insulin Human Lispro (HUMALOG) 0 AC HS SUBQ Dextrose/Water (DEXTROSE 10% IN WATER) 125 ML DIR PRN IV (CKD) Dextrose/Water (DEXTROSE 10% IN WATER) 250 ML DIR PRN IV (CKD) Glucagon (GLUCAGON) 1 MG ASDIR PRN IM Lidocaine (LIDODERM) 1 PATCH DAILY TOPICAL Acetaminophen (TYLENOL) 650 MG Q6H PRN PRN PO Bisacodyl (DULCOLAX) 10 MG DAILY PRN PRN RECTAL Docusate Sodium (COLACE) 100 MG Q12H PRN PRN PO Hydralazine HCl (APRESOLINE) 10 MG Q6H PRN PRN I V Ondansetron HCl (ZOFRAN) 4 MG Q6H PRN PRN IV Functional Progress Functional progress: PT daily note comment: S: PT MET IN ROOM IN WC AGREEABLE TO INITIATE SESSION, NO REPORTS OF PAIN O: PERFORMING WC MOBILITY MOD I 400 FT WITHOUT DIFFICULTY AT THIS TIME. PERFORMING MOVEO AT 8% INCLINE PERFORMING 2 MIN SQUATS X 4 HAVING GOOD CONTROL UNTIL ABOUT 45-15 SEC LEFT IN SET HAVING LIMITED ENDURANCE. PERFORMING SIT TO STANDS IN // BARS X 5 WITH SBA, NEEDING CUES TO TAKE HIS TIME, REST BETWEEN ATTEMPTS D/T LIMITED ENDURANCE. ATTEMPTING HEEL RAISES IN // BARS 3 X 10-15 WITH LIMITED HEEL LIFT OFF AT TH IS TIME. ALSO PERFORMING LAQS WITH 4# ANKLE WEIGHT ON LL E WITH QUAD SET SQUEEZE AT FULL EXTENSION PERFORMING 4 X 10 . PT EDUCATED ON HEP WITH RLE QUAD SETS FOR LIMITING ATROPHY WITH RLE WHEN READY TO INITIATE PROTHETIC TRAINING FOR MOBILITY. PT PERFORMING PIVOT TRANSFERS NEEDING CGA FOR SAFE TY AND CONTROL. ATTEMPTING HOP STEPS IN // BARS INITIALLY NEEDING SBA BUT HAVING LIMITED ENDURANCE HAIVNG KNEE BUCKLE BECOMING TOTAL DEPENDENT NEEDING ASSIST BACK TO W/C. SECOND ATTEMPT PERFORMING HOP STEPS IN // BARS PERFORMING 4 STEPS FORWARD/BACKWARD WITH MIN A FOR SAFETY. Physical Exam General appearance: alert, awake Psych: alert, normal affect, oriented x 3 HEENT: anicteric, sclera clear Neck: supple, no JVD Cardiovascular: S1/S2, no murmur Respiratory: aerating well, clear bilaterally Abdomen: bowel sounds present, non-distended, so ft, non-tender Skin: no rash, R BKA HEALING. 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 3, CNII-XII intact Results Findings/Data: Laboratory Tests 09/21 09/20 09/20 09/20 09/20 0530 1958 1555 1140 0922 Chemistry POC Glucose (70 - 110 MG/DL) 155 H 239 H 159 H 155 H 299 H 09/20 09/20 09/19 09/19 09/19 0505 0458 1921 1544 1133 Chemistry Sodium (134 - 147 mEq/L) 136 Potassium (3.4 - 5.0 mEq/L) 4.2 Chloride (100 - 108 mEq/L) 107 Carbon Dioxide (21 - 33 mEq/l) 21 Anion Gap (0 - 20) 12 BUN (7 - 18 mg/dL) 76 H Creatinine (0.6 - 1.3 mg/dL) 2.2 H Glomerular Filtr Rate (90 - 95) 33.9 L Glucose (70 - 110 mg/dL) 301 H POC Glucose (70 - 110 MG/DL) 277 H 236 H 224 H 96 Calcium (8.0 - 10.5 mg/dL) 7.4 L Phosphorus (2.5 - 4.9 MG/DL) 5.4 H Magnesium (1.80 - 2.40 mg/dL) 2.05 09/19 09/19 09/18 09/18 09/18 0501 0448 2151 1933 1611 Chemistry Sodium (134 - 147 mEq/L) 139 Potassium (3.4 - 5.0 mEq/L) 3.8 Chloride (100 - 108 mEq/L) 108 Carbon Dioxide (21 - 33 mEq/l) 22 Anion Gap (0 - 20) 13 BUN (7 - 18 mg/dL) 72 H Creatinine (0.6 - 1.3 mg/dL) 2.3 H Glomerular Filtr Rate (90 - 95) 32.1 L Glucose (70 - 110 mg/dL) 61 L POC Glucose (70 - 110 MG/DL) 162 H 103 70 118 H Calcium (8.0 - 10.5 mg/dL) 7.5 L Phosphorus (2.5 - 4.9 MG/DL) 5.0 H Magnesium (1.80 - 2.40 mg/dL) 1.69 L 09/18 09/18 1102 0906 Chemistry POC Glucose (70 - 110 MG/DL) 80 171 H Laboratory Tests 09/20 09/19 0505 0501 Hematology WBC (4.5 - 11.0 x10 3/uL) 12.3 H 13.3 H RBC (4.00 - 5.60 x10 6/uL) 2.66 L 2.79 L Hgb (12.5 - 16.9 g/dL) 7.6 L 8.0 L Hct (37.5 - 50.7 %) 23.9 L 25.0 L MCV (81.0 - 99.0 fL) 89.8 89.6 MCH (27.0 - 33.0 pg) 28.6 28.7 MCHC (33.0 - 37.0 g/dL) 31.8 L 32.0 L RDW (11.5 - 14.5 %) 15.3 H 14.9 H Plt Count (150 - 400 x10 3/uL) 302 347 MPV (7.0 - 9.0 fL) 9.2 H 9.1 H Neut % (Auto) (56.0 - 77.0 %) 79.7 H 71.4 Lymph % (Auto) (14.0 - 32.0 %) 13.0 L 16.5 Boundary % (Auto) (4.8 - 9.0 %) 6.2 8.4 Eos % (Auto) (0.3 - 3.7 %) 0.2 L 2.4 Baso % (Auto) (0.0 - 2.0 %) 0.1 0.2 Neut # (Auto) (2.0 - 7.6 x10 3/uL) 9.84 H 9.50 H Lymph # (Auto) (1.0 - 3.8 x10 3/uL) 1.60 2.19 Boundary # (Auto) (0.1 - 0.8 x10 3/uL) 0.76 1.11 H Eos # (Auto) (0.0 - 0.2 x10 3/uL) 0.03 0.32 H Baso # (Auto) (0.0 - 0.2 x10 3/uL) 0.01 0.02 Abs Immat Gran (auto) (0.00 - 0.03 x10 3/uL) 0. 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 Leroy Significant impairment in self-care, ADLs and fu nctional mobility Impaired mobility and gait Acute postoperative pain right BKA Diabetic polyneuropathy DKA, DM 2, poorly controlled, A1c greater than 1 4 PAD MRSA bacteremia/sepsis-treated on acute ERIKA Severe hyponatremia-resolved HTN Acute on chronic anemia requiring multiple trans fusions, possible GI bleed Left calf hematoma Edema and clinical arthritis left ankle Early decubitus to left heel/DTI dorsal left mid foot Prostatic abscess 08/26: S/p transrectal ultrasound aspiration of ab scess and transurethral resection of prostate and unroofing of abscess 09/12: Echo: EF 55-59%, grade 1 diastolic dysfunc tion 09/02: JIMENA negative for vegetation MRSA OF NARES 09/08:s/p EGD and colonoscopy. EGD showed mild ga stritis. Colonoscopy showed rectal polyp that was resect ed by snare (tubular adenoma)-repeat colonoscopy in 5 years Plan: -PLOF: Independent with transfers and gait -Amputee rehab program -Continue PT and OT -15/12 rehabilitation nursing care. -Case management for safe discharge planning. -Decubitus prevention -Early decubitus to left heel/DTI dorsal left mi dfoot-zinc oxide to the foot, foam, offloading, podiatry managing -DVT prophylaxis-SCD left leg -Strict fall and safety precautions -Work on bed mobility, transfer training, ADLs, pre-gait and gait exercises -Increase endurance and strength -Monitor pain with therapies -OOB to chair -Monitor p.o. intake and nut rition, albumin 1.3, prealbumin less than 5, dietary consultation, protein supplements to promote hea ling -Diabetes-A1c 14, tight glycemia control- endocr ine on board, insulin adjustments -Endocrinology, ID, podiatry, cardiology, IM con sulted -Pain management adjusting pain medications -Anemia, patient required multiple units of PRBC s on acute, FOBT positive -IV Protonix-consult GI-seri al H H-no evidence of gross bleeding-discussed with Dr. Trinidad -Constipation-abdominal lwmgbrtd-PFT-ahablb-CW S enokot and MiraLAX, DSP -MRSA OF NARES on Bactroban protocol -LLE edema-venous Doppler wi th complex heterogeneous hypoechoic fluid collection in the left calf region measuring 8.4, 2.8, 2.5 cm suggestive of hematoma. On low-dose Lasix. Oralia wrap LLE -LE edema could be related to hypoalbuminemia le ading to third spacing-edema improving -Generalized edema-some shor tness of breath and abdominal distention-cardiology gave a dose of IV Lasix-monitor urine output, da jaz weights-SOB resolved -09/05-venous Doppler of LLE-negative for DVT-Oralia wrap dressing and elevation -Anemia-hemoglobin 8.3, 7.7, 8.2, 7.6, 8 transfu sed 2 units of PRBC on 09/05 -09/08: s/p EGD and colonoscopy. EGD showed mild gastritis. Colonoscopy showed rectal polyp that was resected by snare. Anemia likely secondary to chronic kidney disease. Consult renal. -Pathology of polyp came back as tubular adenoma . recommend repeating colonoscopy in 5 years as per GI -Consider video capsule endoscopy as outpt if ev idence of dropping H/H -Renal ultrasound negative -09/19/2022 blood pressure better, sodium 139, potassium 3.8, CO2 22, BUN 72 up from 66, creatinine 2.3 up from 2.2, will hold o ff diuretics, urine output reported 2 L, magnesium 1.69 we will give magnesium sulfate 2 g IV x1, continue prednisone-as per renal -MRSA bacteremia and prostat ic abscess-WBC 13.3-monitor on Merrem and Daptomycin til 09/24 as per ID -Lasix as per nephrology -Completed Solu-Medrol -09/12: Echo-EF 55-60%, indet erminate diastolic function parameters as per cardio -BP continues to be elevated, Hydralazine increa sed to 75 mg TID, cont Metoprolol to 25 mg BID -BS better but likely to inc rease with re-initiation of steroids x3 days started by Nephrology for AIN -Endo adjusting insulin -Car transfer training 09/23 -BUN climbing, but creatinine improving. Diureti cs per renal -Check labs 09/21 -Advance therapies as tolerated-discusse d treatment plan with patient and -Right QYA-lcsrprp-vnlijhsb resolved, dressings changed today-no bleeding after heparin discontinued, SCD to left leg -Patient continue to make progress. Emphasizing transfers with rolling walker and residual limb care. PM R Please see team note. Plan and goals discussed with the patient. I agree with the teams finding ELOS- [09/24] on IV antibiotics until 09/24 DC-Home with -Home health DME-bedside commode, sliding board, wheelchair, drop arm bedside commode Total time 33 minutes greater than 50% of the ti me spent examining patient, discussing with patient about improvement in frank[place] al function, on steroids, medical issues, anemia, discharge plans, rehab plan of care, goals, therapies, progress, labs, medications. EMR and MAR is misty norris. All questions answered Rehab attestation: Face to face exam completed. Treatment plan disc ussed with patient. Meets continued stay criteria. Agree with interdiscipl inary treatment plan. Electronically Signed by Guero Candelaria on 0 09/21/22 at 1650 RPT #:[id number] END OF REPORT 2022-09-20 18:00:00-00:00 [facility] ([facility]) Cardiology Progress Note REPORT#:[id number] REPORT STATUS: Signed DATE:09/20/22 TIME: 1800 PATIENT: KARMA ROWLAND UNIT #: [id number] ROOM/BED: [place] [address] : 63 AGE: 56 SEX: M ATTEND: Fredy Vences MD ADM AUTHOR: Gianni Parham MD * ALL edits or amendments must be made on the [employer]/computer document * Subjective Chief complaint: weakness Comments: No new symptoms, feeling better Objective General VS/I O: 24 hour I O ending at 0700: 09/20 0700 09/19 1900 Intake Total 240 960 Output Total 750 1500 Balance -510 -540 Intake, Oral 240 960 Number 0 0 Incontinent Voids Number Voids 0 0 Output, Urine 750 1500 Vital Signs: Date Time Temp Pulse Resp B/P B/P Pulse O2 O2 F low FiO2 Mean Ox Delivery Rate 09/20 1552 97.9 80 18 168/84 112.0 97 Room air 09/20 0719 97.7 86 18 149/74 98.7 100 Room air 09/20 0003 97.9 85 16 147/75 99.3 98 09/19 1919 98.1 90 16 157/43 81.1 98 PATIENT WEIGHT: Weight (lb): 167 Weight (oz): 12.35 Weight (kg): 76.100 Medications: Active Meds + DC'd Last 24 Hrs Insulin Glargine (Semglee) 19 UNIT BEDTIME SUBQ Insulin Glargine (Semglee) 17 UNIT BEDTIME SUBQ (DC) Prednisone (predniSONE) 60 MG DAILY 0600 PO Daptomycin (CUBICIN 500MG) 500 MG Q24H IV Sodium Chloride (SODIUM CHLORIDE 0.9%) 50 ML Hydralazine HCl (APRESOLINE) 75 MG Q8HR PO Insulin Human Lispro (HUMALOG) 10 UNIT AC SUBQ Meropenem (MEROPENEM) 500 MG Q8H IV Sterile Water (WATER FOR INJECTION) 10 ML Carvedilol (COREG) 25 MG C BK DIN PO Gabapentin (NEURONTIN) 100 MG Q8HR PO Oxycodone/Acetaminophen (PERCOCET 5/325MG TAB) 2 TAB Q4H PRN PRN PO Folic Acid (FOLIC ACID) 2 MG DAILY PO Multivitamins (TAB-A-MOHAN) 1 TAB DAILY PO Furosemide (LASIX 20MG INJ) 20 MG BLOOD-DOSE BET WEEN IV (CKD) Sodium Chloride (SODIUM CHLORIDE) 10 ML ASDIR IV Pantoprazole Sodium (PROTONIX) 40 MG Q12HR IV Polyethylene Glycol (MIRALAX) 17 GM DAILY PO Sennosides (Senna Lax 8.6 MG TABLET) 8.6 MG MADALYN Y PO Sodium Chloride (SODIUM CHLORIDE) 10 ML ASDIR NV N IV Amitriptyline HCl (ELAVIL) 25 MG BEDTIME PO Zinc Oxide (ZINC OXIDE 30 GM OINTMENT) 1 APPLIC DAILY TOPICAL Sterile Water (WATER FOR IRRIGATION) DRESSING CH GELACIO ASDIR PRN IRR Insulin Human Lispro (HUMALOG) 0 AC HS SUBQ Dextrose/Water (DEXTROSE 10% IN WATER) 125 ML DIR PRN IV (CKD) Dextrose/Water (DEXTROSE 10% IN WATER) 250 ML DIR PRN IV (CKD) Glucagon (GLUCAGON) 1 MG ASDIR PRN IM Lidocaine (LIDODERM) 1 PATCH DAILY TOPICAL Acetaminophen (TYLENOL) 650 MG Q6H PRN PRN PO Bisacodyl (DULCOLAX) 10 MG DAILY PRN PRN RECTAL Docusate Sodium (COLACE) 100 MG Q12H PRN PRN PO Hydralazine HCl (APRESOLINE) 10 MG Q6H PRN PRN I V Ondansetron HCl (ZOFRAN) 4 MG Q6H PRN PRN IV Physical Exam General appearance: alert, awake, oriented, no a cute distress Neck: no bruit/NL carotids, no JVD Cardiovascular: CV assessment: regular rate and rhythm, no ecto py, no gallop Respiratory: clear to auscultation, no distress Abdomen: soft, non-tender Genitourinary: urinary catheter Lower extremity: LE assessment: edema, normal temperature 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 X 3 Considered stroke alert: no Wound/incision: Location: right bka Psychiatry: normal affect, normal judgment/insig ht, normal mood Results Findings/Data: Laboratory Tests 09/20 09/20 09/20 09/20 09/20 1555 1140 0922 0505 0458 Chemistry Sodium (134 - 147 mEq/L) 136 Potassium (3.4 - 5.0 mEq/L) 4.2 Chloride (100 - 108 mEq/L) 107 Carbon Dioxide (21 - 33 mEq/l) 21 Anion Gap (0 - 20) 12 BUN (7 - 18 mg/dL) 76 H Creatinine (0.6 - 1.3 mg/dL) 2.2 H Glomerular Filtr Rate (90 - 95) 33.9 L Glucose (70 - 110 mg/dL) 301 H POC Glucose (70 - 110 MG/DL) 159 H 155 H 299 H 277 H Calcium (8.0 - 10.5 mg/dL) 7.4 L Phosphorus (2.5 - 4.9 MG/DL) 5.4 H Magnesium (1.80 - 2.40 mg/dL) 2.05 09/19 1921 Chemistry POC Glucose (70 - 110 MG/DL) 236 H Laboratory Tests 09/20 0505 Hematology WBC (4.5 - 11.0 x10 3/uL) 12.3 H RBC (4.00 - 5.60 x10 6/uL) 2.66 L Hgb (12.5 - 16.9 g/dL) 7.6 L Hct (37.5 - 50.7 %) 23.9 L MCV (81.0 - 99.0 fL) 89.8 MCH (27.0 - 33.0 pg) 28.6 MCHC (33.0 - 37.0 g/dL) 31.8 L RDW (11.5 - 14.5 %) 15.3 H Plt Count (150 - 400 x10 3/uL) 302 MPV (7.0 - 9.0 fL) 9.2 H Neut % (Auto) (56.0 - 77.0 %) 79.7 H Lymph % (Auto) (14.0 - 32.0 %) 13.0 L Boundary % (Auto) (4.8 - 9.0 %) 6.2 Eos % (Auto) (0.3 - 3.7 %) 0.2 L Baso % (Auto) (0.0 - 2.0 %) 0.1 Neut # (Auto) (2.0 - 7.6 x10 3/uL) 9.84 H Lymph # (Auto) (1.0 - 3.8 x10 3/uL) 1.60 Boundary # (Auto) (0.1 - 0.8 x10 3/uL) 0.76 Eos # (Auto) (0.0 - 0.2 x10 3/uL) 0.03 Baso # (Auto) (0.0 - 0.2 x10 3/uL) 0.01 Abs Immat Gran (auto) (0.00 - 0.03 x10 3/uL) 0. 10 H Add Manual Diff NO Immature Gran % (0.0 - 2.0 %) 0.8 Nucleated RBC % (0 - 0 %) 0.0 Nucleated RBCs # (Man) (0.0 - 0.1 x10 3/uL) 0.0 0 Laboratory Tests 09/20 0505 Chemistry Magnesium (1.80 - 2.40 mg/dL) 2.05 Diagnosis, Assessment Plan Consultants: cardiology, endocrinology, hospital ist, infectious disease, podiatry Free Text DxA P Notes Free Text DxA P Notes: Impression: 1. Debility 2. Infected right foot status post BKA 3. Bacteremia 4. Diabetes 5. Hypertension 6. Anemia 7. Acute Diastolic CHF 07/2022: Echocardiogram with normal LVEF, grade 1 diastolic dysfunction, mildly dilated LA, and no significant valvular abnormal ities Recommendation: Patient initially presented with DKA and sepsis. Diagnosed with right foot infection, underwent I D, now status post BKA. P atient had persistent bacteremia with MRSA, underwent JIMENA with negativ e findings of endocarditis. Patient now transferred to [facility] for physical therapy. Known cardiac history of hypertension and hyperlipide renetta. Vital signs stable. Echocardiogram with normal LVEF, grade 1 diastolic dysfunction, mildly dila carlos LA, and no significant valvular abnormalities. Continue to monitor bloo d pressure trend. Continue wound care and IV antibiotic therapy. Continue P T/OT. Supportive care. 09/04: Patient complaining of shortness of breath, abdominal distention and lower extremity edema. Renal function and electrolytes stable. Will give one-time dose of IV Lasix 40 mg. Blood pressure stable. P ending abdominal x-ray. Monitor intake and output. Check BMP in the morn ing. Supportive care. Plan of care discussed with patient, RN and Dr. Parham. 09/05: Patient responded well to IV Lasix , good urine output and improvement in shortness of breath. Chest x-ray ordered . Currently on Lasix 20 mg p.o. daily. Continue monitor renal function and electrolyte s. Pending lower extremity Doppler for lower extremity edema. Continue PT/O T. Supportive care. Plan of care discussed with patient, RN and Dr. Parham. 09/08: Blood pressure has been elevated, started on Coreg 3.125 mg twice daily. Continue monitor blood pressure trend and adjust medication as needed. Still having left lower extremity edema, venous Dopple r negative for DVT. continue gentle diuresis with Lasix 20 mg p.o. daily. Rec ommend Oralia wrap. Patient remains anemic, plan for EGD/colonoscopy today. Supportive care. Plan of care discussed with patient, family, RN and Dr. Parham . 09/09: Patient doing well status post EGD /colonoscopy, negative findings for GI bleed. Blood pressure improving, increased on Co reg to 12.5 mg twice daily. Elevated creatinine noted, nephrology following. No new cardiac complaint. Continue wound care. Continue PT/OT. Supportive care. Plan of care discussed with patient, RN and Dr. Parham. 09/10: Blood pressure remained stable on current regimen of Coreg. Patient continue to have left lower extremity edema. Cur rently on Lasix 20 mg daily. Creatinine 1.9 today, continue to monito r. Patient's albumin level was 1.3, it is possible that patient's lower extremity edema could be related to hypoalbuminemia leading to third spacing. Contin ue PT/OT. Supportive care. Plan of care discussed with patient, RN and Dr. Parham. 09/11: Patient doing well from cardiac standpoint . Blood pressure well controlled. Improvement in lower extremity edema with elevating leg while in bed. Creatinine 2.0 today. Denies shortness of b reath. Will hold diuretic for now and monitor renal function. Supportive care. Plan of care discussed with patient, RN and Dr. Parham. 09/12: Creatinine remains elevated at 2.4 today, antibiotic regimen also being adjusted. Patient still with lower extremity rose ma and rales on physical examination. Will check chest x-ray and limited echocardiogram for further evaluation. Check BNP. Continue hold diuretic fo r now. Supportive care. Plan of care discussed with patient, RN and Dr. Parham . 09/15: Repeat echocardiogram showed LVEF of 55 to 60%, no regional wall motion abnormalities, left ventricu lar diastolic function parameters are indeterminate, mildly dilated LA, and no pericardial effusion. BNP elevated 297. Continue to hold diuretic due to Elevate d creatinine, nephrology following and may consider renal biopsy. Continue to monitor fluid volume s tatus. Overall improvement in lower extremity with Oralia wrap. Continue physical therapy. Supportive care. Plan of care discussed with patient, RN and Dr. Parham. 09/16: Blood pressure slightly elevated, started on hydralazine 25 mg every 8 hours. Continue carvedilol monitor blood pressur e trend. Cr. 2.7 today, continue monitor. Tolerating physical therapy. E uvolemic by physical examination. Supportive care. Plan of care discu ssed with patient, RN and Dr. Parham. 09/17: Blood pressure remains elevated, likely re lated to steroid therapy. Hydralazine increased to 50 mg 3 times daily. Ne phrology managing diuretic therapy. Continue monitor renal function and pako ctrolytes. Improvement in lower extremity swelling. Patient denies chest p ain or shortness of breath. Tolerating PT/OT. Supportive care. Plan of care discussed with patient, RN and Dr. Parham. 09/18: Blood pressure remains elevated du e to steroid therapy. Continue monitor blood pressure trend, hydralazine increa sed to 75 mg 3 times daily. Responding to diuretic regimen with Lasix, good urine outpu t. Creatinine improving, 2.2 today. Continue to monitor fluid volume status. Continue physical therapy. Supportive care. Plan of care discussed with lori hart RN and Dr. Parham. 09/19: Blood pressure improving, continue hydrala zine and carvedilol. Overall improvement in fluid volume status. No n ew cardiac complaint. Continue steroid taper per nephrology. Progressing in therapy. Di daysi planning. Supportive care. Plan of care discussed with patient, RN an d Dr. Parham. 09/20: Patient doing much bet ter since started on steroid therapy, creatinine is slowly improving, blood pressure overall improvi ng, nephrology is adjusting antihypertensive medication regimen, diuretic re gimen per nephrology, overall stable cardiac status, discussed with patient an d . at 1923 RPT #:[id number] END OF REPORT 2022-09-20 16:11:00-00:00 [facility]) Endocrinology Progress Note REPORT#:[id number] REPORT STATUS: Signed DATE:09/20/22 TIME: 1611 PATIENT: KARMA ROWLAND UNIT #: [id number] ROOM/BED: [place] [address] : 61 AGE: 56 SEX: M ATTEND: Fredy Vences MD ADM AUTHOR: Braxton Chapin MD * ALL edits or amendments must be made on the [employer]/computer document * Subjective Patient reports: no complaints Objective General VS: Last Documented: Result Date Time Pulse Ox 97 09/20 1552 B/P 168/84 09/20 1552 B/P Mean 112.0 09/20 1552 O2 Delivery Room air 09/20 1552 Temp 36.6 09/20 1552 Pulse 80 09/20 1552 Resp 18 09/20 1552 O2 Flow Rate 2 09/08 1322 PATIENT WEIGHT: Weight (lb): 167 Weight (oz): 12.35 Weight (kg): 76.100 Medications: Active Meds + DC'd Last 24 Hrs Insulin Glargine (Semglee) 17 UNIT BEDTIME SUBQ Prednisone (predniSONE) 60 MG DAILY 0600 PO Daptomycin (CUBICIN 500MG) 500 MG Q24H IV Sodium Chloride (SODIUM CHLORIDE 0.9%) 50 ML Hydralazine HCl (APRESOLINE) 75 MG Q8HR PO Insulin Human Lispro (HUMALOG) 10 UNIT AC SUBQ Meropenem (MEROPENEM) 500 MG Q8H IV Sterile Water (WATER FOR INJECTION) 10 ML Carvedilol (COREG) 25 MG C BK DIN PO Gabapentin (NEURONTIN) 100 MG Q8HR PO Oxycodone/Acetaminophen (PERCOCET 5/325MG TAB) 2 TAB Q4H PRN PRN PO Folic Acid (FOLIC ACID) 2 MG DAILY PO Multivitamins (TAB-A-MOHAN) 1 TAB DAILY PO Furosemide (LASIX 20MG INJ) 20 MG BLOOD-DOSE BET WEEN IV (CKD) Sodium Chloride (SODIUM CHLORIDE) 10 ML ASDIR IV Pantoprazole Sodium (PROTONIX) 40 MG Q12HR IV Polyethylene Glycol (MIRALAX) 17 GM DAILY PO Sennosides (Senna Lax 8.6 MG TABLET) 8.6 MG MADALYN Y PO Sodium Chloride (SODIUM CHLORIDE) 10 ML ASDIR NV N IV Amitriptyline HCl (ELAVIL) 25 MG BEDTIME PO Zinc Oxide (ZINC OXIDE 30 GM OINTMENT) 1 APPLIC DAILY TOPICAL Sterile Water (WATER FOR IRRIGATION) DRESSING CH GELACIO ASDIR PRN IRR Insulin Human Lispro (HUMALOG) 0 AC HS SUBQ Dextrose/Water (DEXTROSE 10% IN WATER) 125 ML DIR PRN IV (CKD) Dextrose/Water (DEXTROSE 10% IN WATER) 250 ML DIR PRN IV (CKD) Glucagon (GLUCAGON) 1 MG ASDIR PRN IM Lidocaine (LIDODERM) 1 PATCH DAILY TOPICAL Acetaminophen (TYLENOL) 650 MG Q6H PRN PRN PO Bisacodyl (DULCOLAX) 10 MG DAILY PRN PRN RECTAL Docusate Sodium (COLACE) 100 MG Q12H PRN PRN PO Hydralazine HCl (APRESOLINE) 10 MG Q6H PRN PRN I V Ondansetron HCl (ZOFRAN) 4 MG Q6H PRN PRN IV Physical Exam General appearance: alert, awake Diagnosis, Assessment Plan Hospital course to date: Laboratory Tests: 09/20 09/20 09/20 09/20 09/19 1140 0922 0505 9588 1921 Chemistry Sodium (134 - 147 mEq/L) 136 Potassium (3.4 - 5.0 mEq/L) 4.2 Chloride (100 - 108 mEq/L) 107 Carbon Dioxide (21 - 33 mEq/l) 21 Anion Gap (0 - 20) 12 BUN (7 - 18 mg/dL) 76 H Creatinine (0.6 - 1.3 mg/dL) 2.2 H Glomerular Filtr Rate (90 - 95) 33.9 L Glucose (70 - 110 mg/dL) 301 H POC Glucose (70 - 110 MG/DL) 155 H 299 H 277 H 236 H Calcium (8.0 - 10.5 mg/dL) 7.4 L Phosphorus (2.5 - 4.9 MG/DL) 5.4 H Magnesium (1.80 - 2.40 mg/dL) 2.05 Hematology WBC (4.5 - 11.0 x10 3/uL) 12.3 H RBC (4.00 - 5.60 x10 6/uL) 2.66 L Hgb (12.5 - 16.9 g/dL) 7.6 L Hct (37.5 - 50.7 %) 23.9 L MCV (81.0 - 99.0 fL) 89.8 MCH (27.0 - 33.0 pg) 28.6 MCHC (33.0 - 37.0 g/dL) 31.8 L RDW (11.5 - 14.5 %) 15.3 H Plt Count (150 - 400 x10 3/uL) 302 MPV (7.0 - 9.0 fL) 9.2 H Neut % (Auto) (56.0 - 77.0 %) 79.7 H Lymph % (Auto) (14.0 - 32.0 %) 13.0 L Boundary % (Auto) (4.8 - 9.0 %) 6.2 Eos % (Auto) (0.3 - 3.7 %) 0.2 L Baso % (Auto) (0.0 - 2.0 %) 0.1 Neut # (Auto) (2.0 - 7.6 x10 3/uL) 9.84 H Lymph # (Auto) (1.0 - 3.8 x10 3/uL) 1.60 Boundary # (Auto) (0.1 - 0.8 x10 3/uL) 0.76 Eos # (Auto) (0.0 - 0.2 x10 3/uL) 0.03 Baso # (Auto) (0.0 - 0.2 x10 3/uL) 0.01 Abs Immat Gran (auto) (0.00 - 0.03 0.10 H x10 3/uL) Add Manual Diff NO Immature Gran % (0.0 - 2.0 %) 0.8 Nucleated RBC % (0 - 0 %) 0.0 Nucleated RBCs # (Man) (0.0 - 0.1 0.00 x10 3/uL) Laboratory Tests: 09/19 09/19 09/19 09/18 09/18 1133 0501 0448 4051 5906 Chemistry Sodium (134 - 147 mEq/L) 139 Potassium (3.4 - 5.0 mEq/L) 3.8 Chloride (100 - 108 mEq/L) 108 Carbon Dioxide (21 - 33 mEq/l) 22 Anion Gap (0 - 20) 13 BUN (7 - 18 mg/dL) 72 H Creatinine (0.6 - 1.3 mg/dL) 2.3 H Glomerular Filtr Rate (90 - 95) 32.1 L Glucose (70 - 110 mg/dL) 61 L POC Glucose (70 - 110 MG/DL) 96 162 H 103 70 Calcium (8.0 - 10.5 mg/dL) 7.5 L Phosphorus (2.5 - 4.9 MG/DL) 5.0 H Magnesium (1.80 - 2.40 mg/dL) 1.69 L Hematology WBC (4.5 - 11.0 x10 3/uL) 13.3 H RBC (4.00 - 5.60 x10 6/uL) 2.79 L Hgb (12.5 - 16.9 g/dL) 8.0 L Hct (37.5 - 50.7 %) 25.0 L MCV (81.0 - 99.0 fL) 89.6 MCH (27.0 - 33.0 pg) 28.7 MCHC (33.0 - 37.0 g/dL) 32.0 L RDW (11.5 - 14.5 %) 14.9 H Plt Count (150 - 400 x10 3/uL) 347 MPV (7.0 - 9.0 fL) 9.1 H Neut % (Auto) (56.0 - 77.0 %) 71.4 Lymph % (Auto) (14.0 - 32.0 %) 16.5 Boundary % (Auto) (4.8 - 9.0 %) 8.4 Eos % (Auto) (0.3 - 3.7 %) 2.4 Baso % (Auto) (0.0 - 2.0 %) 0.2 Neut # (Auto) (2.0 - 7.6 x10 3/uL) 9.50 H Lymph # (Auto) (1.0 - 3.8 x10 3/uL) 2.19 Boundary # (Auto) (0.1 - 0.8 x10 3/uL) 1.11 H Eos # (Auto) (0.0 - 0.2 x10 3/uL) 0.32 H Baso # (Auto) (0.0 - 0.2 x10 3/uL) 0.02 Abs Immat Gran (auto) (0.00 - 0.03 0.14 H x10 3/uL) Add Manual Diff NO Immature Gran % (0.0 - 2.0 %) 1.1 Nucleated RBC % (0 - 0 %) 0.0 Nucleated RBCs # (Man) (0.0 - 0.1 0.00 x10 3/uL) 09/18 1611 Chemistry POC Glucose (70 - 110 MG/DL) 118 H Laboratory Tests: 09/18 09/18 09/18 09/18 1611 1102 0906 0540 Chemistry POC Glucose (70 - 110 MG/DL) 118 H 80 171 H 203 H 09/18 09/17 0505 1904 Chemistry Sodium (134 - 147 mEq/L) 138 Potassium (3.4 - 5.0 mEq/L) 4.1 Chloride (100 - 108 mEq/L) 108 Carbon Dioxide (21 - 33 mEq/l) 21 Anion Gap (0 - 20) 13 BUN (7 - 18 mg/dL) 66 H Creatinine (0.6 - 1.3 mg/dL) 2.2 H Glomerular Filtr Rate (90 - 95) 33.9 L Glucose (70 - 110 mg/dL) 201 H POC Glucose (70 - 110 MG/DL) 160 H Calcium (8.0 - 10.5 mg/dL) 7.5 L Phosphorus (2.5 - 4.9 MG/DL) 4.4 Magnesium (1.80 - 2.40 mg/dL) 1.83 Hematology WBC (4.5 - 11.0 x10 3/uL) 10.6 RBC (4.00 - 5.60 x10 6/uL) 2.67 L Hgb (12.5 - 16.9 g/dL) 7.6 L Hct (37.5 - 50.7 %) 23.7 L MCV (81.0 - 99.0 fL) 88.8 MCH (27.0 - 33.0 pg) 28.5 MCHC (33.0 - 37.0 g/dL) 32.1 L RDW (11.5 - 14.5 %) 14.8 H Plt Count (150 - 400 x10 3/uL) 341 MPV (7.0 - 9.0 fL) 9.2 H Neut % (Auto) (56.0 - 77.0 %) 74.6 Lymph % (Auto) (14.0 - 32.0 %) 17.4 Boundary % (Auto) (4.8 - 9.0 %) 6.9 Eos % (Auto) (0.3 - 3.7 %) 0.1 L Baso % (Auto) (0.0 - 2.0 %) 0.1 Neut # (Auto) (2.0 - 7.6 x10 3/uL) 7.91 H Lymph # (Auto) (1.0 - 3.8 x10 3/uL) 1.85 Boundary # (Auto) (0.1 - 0.8 x10 3/uL) 0.73 Eos # (Auto) (0.0 - 0.2 x10 3/uL) 0.01 Baso # (Auto) (0.0 - 0.2 x10 3/uL) 0.01 Abs Immat Gran (auto) (0.00 - 0.03 x10 3/uL) 0. 10 H Add Manual Diff NO Immature Gran % (0.0 - 2.0 %) 0.9 Nucleated RBC % (0 - 0 %) 0.0 Nucleated RBCs # (Man) (0.0 - 0.1 x10 3/uL) 0.0 0 Laboratory Tests: 09/17 09/17 09/17 09/17 09/17 1554 1027 0951 0601 0451 Chemistry POC Glucose (70 - 110 MG/DL) 75 256 H 287 H 286 H 273 H 09/17 09/16 09/16 0450 2345 1931 Chemistry Sodium (134 - 147 mEq/L) 136 Potassium (3.4 - 5.0 mEq/L) 4.5 Chloride (100 - 108 mEq/L) 107 Carbon Dioxide (21 - 33 mEq/l) 21 Anion Gap (0 - 20) 12 BUN (7 - 18 mg/dL) 66 H Creatinine (0.6 - 1.3 mg/dL) 2.4 H Glomerular Filtr Rate (90 - 95) 30.5 L Glucose (70 - 110 mg/dL) 285 H POC Glucose (70 - 110 MG/DL) 291 H 219 H Calcium (8.0 - 10.5 mg/dL) 7.4 L Phosphorus (2.5 - 4.9 MG/DL) 4.5 Magnesium (1.80 - 2.40 mg/dL) 1.97 Hematology WBC (4.5 - 11.0 x10 3/uL) 8.9 RBC (4.00 - 5.60 x10 6/uL) 2.83 L Hgb (12.5 - 16.9 g/dL) 8.1 L Hct (37.5 - 50.7 %) 24.9 L MCV (81.0 - 99.0 fL) 88.0 MCH (27.0 - 33.0 pg) 28.6 MCHC (33.0 - 37.0 g/dL) 32.5 L RDW (11.5 - 14.5 %) 14.6 H Plt Count (150 - 400 x10 3/uL) 374 MPV (7.0 - 9.0 fL) 9.6 H Neut % (Auto) (56.0 - 77.0 %) 85.2 H Lymph % (Auto) (14.0 - 32.0 %) 10.2 L Boundary % (Auto) (4.8 - 9.0 %) 2.9 L Eos % (Auto) (0.3 - 3.7 %) 0.0 L Baso % (Auto) (0.0 - 2.0 %) 0.1 Neut # (Auto) (2.0 - 7.6 x10 3/uL) 7.58 Lymph # (Auto) (1.0 - 3.8 x10 3/uL) 0.91 L Boundary # (Auto) (0.1 - 0.8 x10 3/uL) 0.26 Eos # (Auto) (0.0 - 0.2 x10 3/uL) 0.00 Baso # (Auto) (0.0 - 0.2 x10 3/uL) 0.01 Abs Immat Gran (auto) (0.00 - 0.03 x10 3/uL) 0. 14 H Add Manual Diff NO Immature Gran % (0.0 - 2.0 %) 1.6 Nucleated RBC % (0 - 0 %) 0.0 Nucleated RBCs # (Man) (0.0 - 0.1 x10 3/uL) 0.0 0 Laboratory Tests: 09/16 09/16 09/16 09/16 1549 1441 1110 0553 Chemistry POC Glucose (70 - 110 MG/DL) 62 L 60 L 148 H 19 5 H 09/16 09/15 0455 1937 Chemistry Sodium (134 - 147 mEq/L) 135 Potassium (3.4 - 5.0 mEq/L) 4.5 Chloride (100 - 108 mEq/L) 108 Carbon Dioxide (21 - 33 mEq/l) 20 L Anion Gap (0 - 20) 11 BUN (7 - 18 mg/dL) 60 H Creatinine (0.6 - 1.3 mg/dL) 2.7 H Glomerular Filtr Rate (90 - 95) 26.5 L Glucose (70 - 110 mg/dL) 175 H POC Glucose (70 - 110 MG/DL) 124 H Calcium (8.0 - 10.5 mg/dL) 7.5 L Phosphorus (2.5 - 4.9 MG/DL) 4.6 Magnesium (1.80 - 2.40 mg/dL) 1.93 Hematology WBC (4.5 - 11.0 x10 3/uL) 9.5 RBC (4.00 - 5.60 x10 6/uL) 2.70 L Hgb (12.5 - 16.9 g/dL) 7.6 L Hct (37.5 - 50.7 %) 23.7 L MCV (81.0 - 99.0 fL) 87.8 MCH (27.0 - 33.0 pg) 28.1 MCHC (33.0 - 37.0 g/dL) 32.1 L RDW (11.5 - 14.5 %) 14.6 H Plt Count (150 - 400 x10 3/uL) 360 MPV (7.0 - 9.0 fL) 9.6 H Neut % (Auto) (56.0 - 77.0 %) 73.4 Lymph % (Auto) (14.0 - 32.0 %) 18.6 Boundary % (Auto) (4.8 - 9.0 %) 6.7 Eos % (Auto) (0.3 - 3.7 %) 0.2 L Baso % (Auto) (0.0 - 2.0 %) 0.1 Neut # (Auto) (2.0 - 7.6 x10 3/uL) 6.99 Lymph # (Auto) (1.0 - 3.8 x10 3/uL) 1.77 Boundary # (Auto) (0.1 - 0.8 x10 3/uL) 0.64 Eos # (Auto) (0.0 - 0.2 x10 3/uL) 0.02 Baso # (Auto) (0.0 - 0.2 x10 3/uL) 0.01 Abs Immat Gran (auto) (0.00 - 0.03 x10 3/uL) 0. 10 H Add Manual Diff NO Immature Gran % (0.0 - 2.0 %) 1.0 Nucleated RBC % (0 - 0 %) 0.0 Nucleated RBCs # (Man) (0.0 - 0.1 x10 3/uL) 0.0 0 Laboratory Tests: 09/15 09/15 09/15 09/15 1640 1304 1154 0519 Chemistry POC Glucose (70 - 110 MG/DL) 137 H 126 H 309 H Urines Urine Color (YEL/STRAW) YELLOW Urine Appearance (CLEAR) SL CLOUDY Urine pH (5.0 - 7.0) 5.0 Ur Specific [place] (1.005 - 1.030) 1.013 Urine Protein (NEGATIVE) 2+ H Urine Glucose (UA) (NEGATIVE) 2+ H Urine Ketones (NEGATIVE) NEGATIVE Urine Blood (NEGATIVE) 2+ H Urine Nitrite (NEGATIVE) NEGATIVE Urine Bilirubin (NEGATIVE) NEGATIVE Urine Urobilinogen (0.2 - 1.0 mg/dL) 0.2 Ur Leukocyte Esterase (NEGATIVE) TRACE H Urine RBC (0 - 3 RBC/HPF) 21-50 Urine WBC (0 - 3 WBC/HPF) 4-9 H Ur Squamous Epith Cells (NONE SEEN /HPF) 0-5 Ur Transition Epith Cell (NONE SEEN /HPF) TRACE Urine Bacteria (NONE SEEN /HPF) TRACE Granular Casts (NONE /LPF) 3-5 Urine Mucus (NONE SEEN /LPF) TRACE Ur Random Creatinine (mg/dL) 52.5 U Random Total Protein (mg/dL) 283 09/15 09/14 1708 5410 Chemistry Sodium (134 - 147 mEq/L) 132 L Potassium (3.4 - 5.0 mEq/L) 4.7 Chloride (100 - 108 mEq/L) 105 Carbon Dioxide (21 - 33 mEq/l) 17 L Anion Gap (0 - 20) 15 BUN (7 - 18 mg/dL) 38 H Creatinine (0.6 - 1.3 mg/dL) 2.9 H Glomerular Filtr Rate (90 - 95) 24.3 L Glucose (70 - 110 mg/dL) 312 H POC Glucose (70 - 110 MG/DL) 193 H Calcium (8.0 - 10.5 mg/dL) 7.2 L Phosphorus (2.5 - 4.9 MG/DL) 5.7 H Magnesium (1.80 - 2.40 mg/dL) 1.96 Total Creatine Kinase (46 - 171 Units/L) 26 L Albumin (3.4 - 5.0 g/dL) 1.50 L Prealbumin (16.0 - 40.0 mg/dL) 8.0 L Hematology WBC (4.5 - 11.0 x10 3/uL) 8.7 RBC (4.00 - 5.60 x10 6/uL) 2.88 L Hgb (12.5 - 16.9 g/dL) 8.2 L Hct (37.5 - 50.7 %) 26.5 L MCV (81.0 - 99.0 fL) 92.0 MCH (27.0 - 33.0 pg) 28.5 MCHC (33.0 - 37.0 g/dL) 30.9 L RDW (11.5 - 14.5 %) 14.3 Plt Count (150 - 400 x10 3/uL) 341 MPV (7.0 - 9.0 fL) 9.1 H Neut % (Auto) (56.0 - 77.0 %) 84.9 H Lymph % (Auto) (14.0 - 32.0 %) 11.3 L Boundary % (Auto) (4.8 - 9.0 %) 3.2 L Eos % (Auto) (0.3 - 3.7 %) 0.0 L Baso % (Auto) (0.0 - 2.0 %) 0.1 Neut # (Auto) (2.0 - 7.6 x10 3/uL) 7.35 Lymph # (Auto) (1.0 - 3.8 x10 3/uL) 0.98 L Boundary # (Auto) (0.1 - 0.8 x10 3/uL) 0.28 Eos # (Auto) (0.0 - 0.2 x10 3/uL) 0.00 Baso # (Auto) (0.0 - 0.2 x10 3/uL) 0.01 Abs Immat Gran (auto) (0.00 - 0.03 x10 3/uL) 0. 04 H Add Manual Diff NO Immature Gran % (0.0 - 2.0 %) 0.5 Nucleated RBC % (0 - 0 %) 0.0 Nucleated RBCs # (Man) (0.0 - 0.1 x10 3/uL) 0.0 0 Microbiology: Date/Time Procedure - Status Source Growth 09/15 514 MRSA DNA Surveillance Screen - COMP NASAL Laboratory Tests: 09/14 09/14 09/14 09/14 09/13 1130 0736 0526 0528 1937 Chemistry Sodium (134 - 147 mEq/L) 132 L Potassium (3.4 - 5.0 mEq/L) 4.4 Chloride (100 - 108 mEq/L) 104 Carbon Dioxide (21 - 33 mEq/l) 19 L Anion Gap (0 - 20) 14 BUN (7 - 18 mg/dL) 38 H Creatinine (0.6 - 1.3 mg/dL) 2.8 H Glomerular Filtr Rate (90 - 95) 25.4 L Glucose (70 - 110 mg/dL) 325 H POC Glucose (70 - 110 MG/DL) 137 H 290 H 334 H 248 H Calcium (8.0 - 10.5 mg/dL) 7.5 L Hematology WBC (4.5 - 11.0 x10 3/uL) 9.5 RBC (4.00 - 5.60 x10 6/uL) 2.83 L Hgb (12.5 - 16.9 g/dL) 8.0 L Hct (37.5 - 50.7 %) 25.3 L MCV (81.0 - 99.0 fL) 89.4 MCH (27.0 - 33.0 pg) 28.3 MCHC (33.0 - 37.0 g/dL) 31.6 L RDW (11.5 - 14.5 %) 14.0 Plt Count (150 - 400 x10 3/uL) 322 MPV (7.0 - 9.0 fL) 9.3 H Neut % (Auto) (56.0 - 77.0 %) 80.2 H Lymph % (Auto) (14.0 - 32.0 %) 13.9 L Boundary % (Auto) (4.8 - 9.0 %) 5.1 Eos % (Auto) (0.3 - 3.7 %) 0.0 L Baso % (Auto) (0.0 - 2.0 %) 0.1 Neut # (Auto) (2.0 - 7.6 x10 3/uL) 7.58 Lymph # (Auto) (1.0 - 3.8 x10 3/uL) 1.31 Boundary # (Auto) (0.1 - 0.8 x10 3/uL) 0.48 Eos # (Auto) (0.0 - 0.2 x10 3/uL) 0.00 Baso # (Auto) (0.0 - 0.2 x10 3/uL) 0.01 Abs Immat Gran (auto) (0.00 - 0.03 0.07 H x10 3/uL) Add Manual Diff NO Immature Gran % (0.0 - 2.0 %) 0.7 Nucleated RBC % (0 - 0 %) 0.0 Nucleated RBCs # (Man) (0.0 - 0.1 0.00 x10 3/uL) 09/13 1629 Chemistry POC Glucose (70 - 110 MG/DL) 130 H Laboratory Tests: 09/13 09/13 09/13 09/12 1105 0546 8673 2016 Chemistry Sodium (134 - 147 mEq/L) 133 L Potassium (3.4 - 5.0 mEq/L) 4.6 Chloride (100 - 108 mEq/L) 107 Carbon Dioxide (21 - 33 mEq/l) 19 L Anion Gap (0 - 20) 12 BUN (7 - 18 mg/dL) 28 H Creatinine (0.6 - 1.3 mg/dL) 2.7 H Glomerular Filtr Rate (90 - 95) 26.5 L Glucose (70 - 110 mg/dL) 241 H POC Glucose (70 - 110 MG/DL) 307 H 258 H 223 H Calcium (8.0 - 10.5 mg/dL) 7.8 L Phosphorus (2.5 - 4.9 MG/DL) 4.7 Magnesium (1.80 - 2.40 mg/dL) 1.92 Hematology WBC (4.5 - 11.0 x10 3/uL) 9.8 RBC (4.00 - 5.60 x10 6/uL) 2.90 L Hgb (12.5 - 16.9 g/dL) 8.2 L Hct (37.5 - 50.7 %) 25.4 L MCV (81.0 - 99.0 fL) 87.6 MCH (27.0 - 33.0 pg) 28.3 MCHC (33.0 - 37.0 g/dL) 32.3 L RDW (11.5 - 14.5 %) 13.7 Plt Count (150 - 400 x10 3/uL) 288 MPV (7.0 - 9.0 fL) 10.0 H Neut % (Auto) (56.0 - 77.0 %) 85.3 H Lymph % (Auto) (14.0 - 32.0 %) 10.4 L Boundary % (Auto) (4.8 - 9.0 %) 3.5 L Eos % (Auto) (0.3 - 3.7 %) 0.0 L Baso % (Auto) (0.0 - 2.0 %) 0.1 Neut # (Auto) (2.0 - 7.6 x10 3/uL) 8.34 H Lymph # (Auto) (1.0 - 3.8 x10 3/uL) 1.02 Boundary # (Auto) (0.1 - 0.8 x10 3/uL) 0.34 Eos # (Auto) (0.0 - 0.2 x10 3/uL) 0.00 Baso # (Auto) (0.0 - 0.2 x10 3/uL) 0.01 Abs Immat Gran (auto) (0.00 - 0.03 x10 3/uL) 0. 07 H Add Manual Diff NO Immature Gran % (0.0 - 2.0 %) 0.7 Nucleated RBC % (0 - 0 %) 0.0 Nucleated RBCs # (Man) (0.0 - 0.1 x10 3/uL) 0.0 0 Microbiology: Date/Time Procedure - Status Source Growth 09/13 0455 MRSA DNA Surveillance Screen - RECD NASAL Laboratory Tests: 09/12 09/12 09/12 09/12 1606 1115 1105 0604 Chemistry POC Glucose (70 - 110 MG/DL) 150 H 68 L 170 H B-Natriuretic Peptide (0 - 100 PG/ML) 297.0 H Hematology Eos Smear Total Cells NONE SEEN 09/12 09/11 09/11 0420 2130 1933 Chemistry Sodium (134 - 147 mEq/L) 134 Potassium (3.4 - 5.0 mEq/L) 4.2 Chloride (100 - 108 mEq/L) 106 Carbon Dioxide (21 - 33 mEq/l) 20 L Anion Gap (0 - 20) 12 BUN (7 - 18 mg/dL) 31 H Creatinine (0.6 - 1.3 mg/dL) 2.4 H Glomerular Filtr Rate (90 - 95) 30.5 L Glucose (70 - 110 mg/dL) 167 H POC Glucose (70 - 110 MG/DL) 150 H Calcium (8.0 - 10.5 mg/dL) 8.2 Phosphorus (2.5 - 4.9 MG/DL) 4.4 Magnesium (1.80 - 2.40 mg/dL) 1.86 Hematology WBC (4.5 - 11.0 x10 3/uL) 8.8 RBC (4.00 - 5.60 x10 6/uL) 2.73 L Hgb (12.5 - 16.9 g/dL) 7.7 L Hct (37.5 - 50.7 %) 23.7 L MCV (81.0 - 99.0 fL) 86.8 MCH (27.0 - 33.0 pg) 28.2 MCHC (33.0 - 37.0 g/dL) 32.5 L RDW (11.5 - 14.5 %) 13.8 Plt Count (150 - 400 x10 3/uL) 248 MPV (7.0 - 9.0 fL) 9.7 H Neut % (Auto) (56.0 - 77.0 %) 72.3 Lymph % (Auto) (14.0 - 32.0 %) 15.0 Boundary % (Auto) (4.8 - 9.0 %) 7.9 Eos % (Auto) (0.3 - 3.7 %) 3.8 H Baso % (Auto) (0.0 - 2.0 %) 0.3 Neut # (Auto) (2.0 - 7.6 x10 3/uL) 6.34 Lymph # (Auto) (1.0 - 3.8 x10 3/uL) 1.31 Boundary # (Auto) (0.1 - 0.8 x10 3/uL) 0.69 Eos # (Auto) (0.0 - 0.2 x10 3/uL) 0.33 H Baso # (Auto) (0.0 - 0.2 x10 3/uL) 0.03 Abs Immat Gran (auto) (0.00 - 0.03 x10 3/uL) 0. 06 H Add Manual Diff NO Immature Gran % (0.0 - 2.0 %) 0.7 Nucleated RBC % (0 - 0 %) 0.0 Nucleated RBCs # (Man) (0.0 - 0.1 x10 3/uL) 0.0 0 Toxicology Random Vancomycin (mcg/mL) 16.7 Laboratory Tests: 09/11 09/11 09/11 09/11 09/11 1532 1445 1114 0541 0445 Chemistry Sodium (134 - 147 mEq/L) 134 Potassium (3.4 - 5.0 mEq/L) 4.3 Chloride (100 - 108 mEq/L) 105 Carbon Dioxide (21 - 33 mEq/l) 22 Anion Gap (0 - 20) 12 BUN (7 - 18 mg/dL) 26 H Creatinine (0.6 - 1.3 mg/dL) 2.0 H Glomerular Filtr Rate (90 - 95) 38.0 L Glucose (70 - 110 mg/dL) 109 POC Glucose (70 - 110 MG/DL) 93 109 127 H Calcium (8.0 - 10.5 mg/dL) 8.3 Phosphorus (2.5 - 4.9 MG/DL) 4.7 Magnesium (1.80 - 2.40 mg/dL) 1.90 Hematology WBC (4.5 - 11.0 x10 3/uL) 7.9 RBC (4.00 - 5.60 x10 6/uL) 2.94 L Hgb (12.5 - 16.9 g/dL) 8.3 L Hct (37.5 - 50.7 %) 25.8 L MCV (81.0 - 99.0 fL) 87.8 MCH (27.0 - 33.0 pg) 28.2 MCHC (33.0 - 37.0 g/dL) 32.2 L RDW (11.5 - 14.5 %) 13.7 Plt Count (150 - 400 x10 3/uL) 269 MPV (7.0 - 9.0 fL) 9.8 H Neut % (Auto) (56.0 - 77.0 %) 67.9 Lymph % (Auto) (14.0 - 32.0 %) 16.1 Boundary % (Auto) (4.8 - 9.0 %) 9.1 H Eos % (Auto) (0.3 - 3.7 %) 5.6 H Baso % (Auto) (0.0 - 2.0 %) 0.5 Neut # (Auto) (2.0 - 7.6 x10 3/uL) 5.35 Lymph # (Auto) (1.0 - 3.8 x10 3/uL) 1.27 Boundary # (Auto) (0.1 - 0.8 x10 3/uL) 0.72 Eos # (Auto) (0.0 - 0.2 x10 3/uL) 0.44 H Baso # (Auto) (0.0 - 0.2 x10 3/uL) 0.04 Abs Immat Gran (auto) (0.00 - 0.03 0.06 H x10 3/uL) Add Manual Diff NO Immature Gran % (0.0 - 2.0 %) 0.8 Nucleated RBC % (0 - 0 %) 0.0 Nucleated RBCs # (Man) (0.0 - 0.1 0.00 x10 3/uL) Toxicology Random Vancomycin (mcg/mL) 18.3 09/10 1851 Chemistry POC Glucose (70 - 110 MG/DL) 97 Laboratory Tests: 09/10 09/10 09/10 09/10 09/10 1715 1625 1430 1007 0545 Chemistry Sodium (134 - 147 mEq/L) 135 Potassium (3.4 - 5.0 mEq/L) 4.2 Chloride (100 - 108 mEq/L) 107 Carbon Dioxide (21 - 33 mEq/l) 21 Anion Gap (0 - 20) 11 BUN (7 - 18 mg/dL) 25 H Creatinine (0.6 - 1.3 mg/dL) 1.9 H Glomerular Filtr Rate (90 - 95) 40.4 L Glucose (70 - 110 mg/dL) 156 H POC Glucose (70 - 110 MG/DL) 75 58 L 213 H Calcium (8.0 - 10.5 mg/dL) 8.3 Phosphorus (2.5 - 4.9 MG/DL) 4.6 Magnesium (1.80 - 2.40 mg/dL) 1.89 Hematology WBC (4.5 - 11.0 x10 3/uL) 8.6 RBC (4.00 - 5.60 x10 6/uL) 3.08 L Hgb (12.5 - 16.9 g/dL) 8.6 L Hct (37.5 - 50.7 %) 26.7 L MCV (81.0 - 99.0 fL) 86.7 MCH (27.0 - 33.0 pg) 27.9 MCHC (33.0 - 37.0 g/dL) 32.2 L RDW (11.5 - 14.5 %) 13.8 Plt Count (150 - 400 x10 3/uL) 265 MPV (7.0 - 9.0 fL) 9.6 H Neut % (Auto) (56.0 - 77.0 %) 69.4 Lymph % (Auto) (14.0 - 32.0 %) 15.5 Boundary % (Auto) (4.8 - 9.0 %) 8.5 Eos % (Auto) (0.3 - 3.7 %) 5.5 H Baso % (Auto) (0.0 - 2.0 %) 0.4 Neut # (Auto) (2.0 - 7.6 x10 3/uL) 5.94 Lymph # (Auto) (1.0 - 3.8 x10 3/uL) 1.33 Boundary # (Auto) (0.1 - 0.8 x10 3/uL) 0.73 Eos # (Auto) (0.0 - 0.2 x10 3/uL) 0.47 H Baso # (Auto) (0.0 - 0.2 x10 3/uL) 0.03 Abs Immat Gran (auto) (0.00 - 0.03 0.06 H x10 3/uL) Add Manual Diff NO Immature Gran % (0.0 - 2.0 %) 0.7 Nucleated RBC % (0 - 0 %) 0.0 Nucleated RBCs # (Man) (0.0 - 0.1 0.00 x10 3/uL) Toxicology Random Vancomycin (mcg/mL) 15.7 09/10 09/09 0541 1911 Chemistry POC Glucose (70 - 110 MG/DL) 154 H 102 Recent Impressions: ULTRASOUND - US RETROPERITONEAL COM 09/10 1311 Report Impression - Status: SIGNED Entered: 09/10/2022 1503 IMPRESSION: No acute findings. Impression By: Hakeem Jacobo Laboratory Tests: 09/09 09/09 09/09 09/09 09/09 1606 1526 1403 1049 0524 Chemistry POC Glucose (70 - 110 MG/DL) 109 30 L 90 128 H Toxicology Random Vancomycin (mcg/mL) 15.4 09/09 09/08 09/08 0500 1955 1828 Chemistry Sodium (134 - 147 mEq/L) 136 Potassium (3.4 - 5.0 mEq/L) 4.2 Chloride (100 - 108 mEq/L) 107 Carbon Dioxide (21 - 33 mEq/l) 22 Anion Gap (0 - 20) 11 BUN (7 - 18 mg/dL) 23 H Creatinine (0.6 - 1.3 mg/dL) 1.5 H Glomerular Filtr Rate (90 - 95) 53.6 L Glucose (70 - 110 mg/dL) 125 H POC Glucose (70 - 110 MG/DL) 106 Calcium (8.0 - 10.5 mg/dL) 8.2 Phosphorus (2.5 - 4.9 MG/DL) 4.0 Magnesium (1.80 - 2.40 mg/dL) 1.89 Iron (35 - 150 mcg/dL) 10 L TIBC (260 - 445 mcg/dL) 138 L % Saturation (14 - 34 %) 7.2 L Unsat Iron Binding (mcg/dL) 128 Ferritin (23.9 - 336.2 ng/mL) 700.5 H Lactate Dehydrogenase (87 - 241 IUnits/L) 193 Hematology WBC (4.5 - 11.0 x10 3/uL) 9.2 RBC (4.00 - 5.60 x10 6/uL) 3.01 L Hgb (12.5 - 16.9 g/dL) 8.5 L Hct (37.5 - 50.7 %) 25.9 L MCV (81.0 - 99.0 fL) 86.0 MCH (27.0 - 33.0 pg) 28.2 MCHC (33.0 - 37.0 g/dL) 32.8 L RDW (11.5 - 14.5 %) 13.8 Plt Count (150 - 400 x10 3/uL) 263 MPV (7.0 - 9.0 fL) 9.7 H Neut % (Auto) (56.0 - 77.0 %) 69.1 Lymph % (Auto) (14.0 - 32.0 %) 16.1 Boundary % (Auto) (4.8 - 9.0 %) 9.2 H Eos % (Auto) (0.3 - 3.7 %) 4.7 H Baso % (Auto) (0.0 - 2.0 %) 0.4 Neut # (Auto) (2.0 - 7.6 x10 3/uL) 6.38 Lymph # (Auto) (1.0 - 3.8 x10 3/uL) 1.49 Boundary # (Auto) (0.1 - 0.8 x10 3/uL) 0.85 H Eos # (Auto) (0.0 - 0.2 x10 3/uL) 0.43 H Baso # (Auto) (0.0 - 0.2 x10 3/uL) 0.04 Abs Immat Gran (auto) (0.00 - 0.03 x10 3/uL) 0. 05 H Add Manual Diff NO Immature Gran % (0.0 - 2.0 %) 0.5 Nucleated RBC % (0 - 0 %) 0.0 Nucleated RBCs # (Man) (0.0 - 0.1 x10 3/uL) 0.0 0 Retic Count (auto) (0.3 - 2.3 %) 1.3 Laboratory Tests: 09/08 09/08 09/08 09/08 09/08 1611 1318 1045 1033 0616 Chemistry POC Glucose (70 - 110 MG/DL) 120 H 101 99 101 Toxicology Random Vancomycin (mcg/mL) 15.8 09/08 09/07 09/07 0615 2238 2110 Chemistry Sodium (134 - 147 mEq/L) 135 Potassium (3.4 - 5.0 mEq/L) 4.6 Chloride (100 - 108 mEq/L) 107 Carbon Dioxide (21 - 33 mEq/l) 22 Anion Gap (0 - 20) 10 BUN (7 - 18 mg/dL) 22 H Creatinine (0.6 - 1.3 mg/dL) 1.4 H Glomerular Filtr Rate (90 - 95) 58.3 L Glucose (70 - 110 mg/dL) 100 POC Glucose (70 - 110 MG/DL) 135 H 127 H Calcium (8.0 - 10.5 mg/dL) 8.1 Magnesium (1.80 - 2.40 mg/dL) 1.58 L Total Creatine Kinase (46 - 171 Units/L) 22 L Albumin (3.4 - 5.0 g/dL) 1.30 L Prealbumin (16.0 - 40.0 mg/dL) < 5.0 L Hematology WBC (4.5 - 11.0 x10 3/uL) 9.1 RBC (4.00 - 5.60 x10 6/uL) 3.05 L Hgb (12.5 - 16.9 g/dL) 8.5 L Hct (37.5 - 50.7 %) 26.2 L MCV (81.0 - 99.0 fL) 85.9 MCH (27.0 - 33.0 pg) 27.9 MCHC (33.0 - 37.0 g/dL) 32.4 L RDW (11.5 - 14.5 %) 13.5 Plt Count (150 - 400 x10 3/uL) 231 MPV (7.0 - 9.0 fL) 9.6 H Neut % (Auto) (56.0 - 77.0 %) 73.3 Lymph % (Auto) (14.0 - 32.0 %) 13.7 L Boundary % (Auto) (4.8 - 9.0 %) 7.2 Eos % (Auto) (0.3 - 3.7 %) 4.8 H Baso % (Auto) (0.0 - 2.0 %) 0.3 Neut # (Auto) (2.0 - 7.6 x10 3/uL) 6.64 Lymph # (Auto) (1.0 - 3.8 x10 3/uL) 1.24 Boundary # (Auto) (0.1 - 0.8 x10 3/uL) 0.65 Eos # (Auto) (0.0 - 0.2 x10 3/uL) 0.43 H Baso # (Auto) (0.0 - 0.2 x10 3/uL) 0.03 Abs Immat Gran (auto) (0.00 - 0.03 x10 3/uL) 0. 06 H Add Manual Diff NO Immature Gran % (0.0 - 2.0 %) 0.7 Nucleated RBC % (0 - 0 %) 0.0 Nucleated RBCs # (Man) (0.0 - 0.1 x10 3/uL) 0.0 0 Laboratory Tests: 09/07 09/07 09/07 09/07 09/07 1554 1137 1127 0618 0510 Chemistry Creatinine (0.6 - 1.3 mg/dL) 1.4 H POC Glucose (70 - 110 MG/DL) 112 H 51 L 42 L 13 5 H Hematology Hgb (12.5 - 16.9 g/dL) 8.4 L Hct (37.5 - 50.7 %) 26.2 L Toxicology Random Vancomycin (mcg/mL) 14.7 09/06 09/06 2226 2108 Chemistry POC Glucose (70 - 110 MG/DL) 192 H 211 H Laboratory Tests: 09/06 09/06 09/06 09/06 09/06 1553 1547 1051 0538 0536 Chemistry Creatinine (0.6 - 1.3 mg/dL) 1.4 H POC Glucose (70 - 110 MG/DL) 119 H 92 124 H Hematology Hgb (12.5 - 16.9 g/dL) 8.6 L Hct (37.5 - 50.7 %) 26.1 L Toxicology Vancomycin Trough (10.0 - 20.0 mcg/mL) 18.9 09/05 1910 Chemistry POC Glucose (70 - 110 MG/DL) 117 H Laboratory Tests: 09/05 09/05 09/04 09/04 09/04 1149 0615 2042 1630 1557 Chemistry Sodium (134 - 147 mEq/L) 134 Potassium (3.4 - 5.0 mEq/L) 5.0 Chloride (100 - 108 mEq/L) 109 H Carbon Dioxide (21 - 33 mEq/l) 21 Anion Gap (0 - 20) 9 BUN (7 - 18 mg/dL) 24 H Creatinine (0.6 - 1.3 mg/dL) 1.3 Glomerular Filtr Rate (90 - 95) 63.7 L Glucose (70 - 110 mg/dL) 75 POC Glucose (70 - 110 MG/DL) 74 103 128 H Calcium (8.0 - 10.5 mg/dL) 7.9 L Hematology Hgb (12.5 - 16.9 g/dL) 7.1 L Hct (37.5 - 50.7 %) 22.7 L Toxicology Vancomycin Trough (10.0 - 20.0 mcg/mL) 12.8 Microbiology: Date/Time Procedure - Status Source Growth 09/04 1739 Occult Blood - COMP STOOL Recent Impressions: RADIOLOGY - XR ABDOMEN 1V (KUB) 09/04 1648 Report Impression - Status: SIGNED Entered: 09/04/2022 1757 IMPRESSION: Benign appearance of the abdomen. Impression By: [email or web address] - Hakeem Soto ULTRASOUND - DUP VEIN UNI/LTD 09/05 1146 Report Impression - Status: SIGNED Entered: 09/05/2022 1333 IMPRESSION: 1. No evidence of deep vein thrombosis. 2. Complex heterogeneous hypoechoic fluid collec tion in the left calf region measuring 8.4 x 2.8 x 2.5 cm; there is no internal vascularity or peripheral hyperemia. May represe nt a hematoma. Impression By: [email or web address] - Mert Ga M.D. RADIOLOGY - XR CHEST 1 V 09/05 1432 Report Impression - Status: SIGNED Entered: 09/05/2022 1515 IMPRESSION: Minimal bibasilar pulmonary opacities Impression By: TipTDO - Hakeem Perez Laboratory Tests: 09/04 09/04 09/04 09/04 09/04 1630 1557 1100 1031 0816 Chemistry POC Glucose (70 - 110 MG/DL) 128 H 107 99 Hematology Hgb (12.5 - 16.9 g/dL) 7.7 L Hct (37.5 - 50.7 %) 23.7 L Toxicology Vancomycin Trough (10.0 - 20.0 mcg/mL) 12.8 09/04 09/04 09/03 09/03 0721 0540 1944 1836 Chemistry POC Glucose (70 - 110 MG/DL) 87 124 H Hematology Hgb (12.5 - 16.9 g/dL) 6.8 L Hct (37.5 - 50.7 %) 21.2 L Toxicology Vancomycin Peak (30 - 40 MCG/ML) 27.4 L Microbiology: Date/Time Procedure - Status Source Growth 09/04 1037 Occult Blood - COLB STOOL 1.Diabetes mellitus type 2 uncontrolled complica tions. 2. 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 4. Sepsis 5. Prostate abscess. 6. Anemia Blood sugar 301-155 mg/dL.H/H 8.11/17. Adjust insulin dose. PT and OT. Electronically Signed by Braxton Chapin MD on at 1611 RPT #:[id number] END OF REPORT 2022-09-20 13:40:00-00:00 [facility] Gastroenterology Progress Note REPORT#:[id number] REPORT STATUS: Signed DATE:09/20/22 TIME: 1340 PATIENT: KARMA ROWLAND UNIT #: [id number] ROOM/BED: [place] [address] : 63 AGE: 56 SEX: M ATTEND: Fredy Vences MD ADM AUTHOR: Kassie Avitia MD * ALL edits or amendments must be made on the el [employer]/computer document * Subjective HPI: Patient is a 56-year-old male with history of di abetes mellitus type 2 and hypertension who was initially admitted for alte red mental status and right- sided foot infection. 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 The p atient is anemic with current Hgb 7.1. He has received a total of 3 un its pRBCs during this hospitalization. KUB on 09/04 was negative for acute GI process. T he patient denies overt GIB, dark tarry stools, nausea, a bdominal pain, or vomiting. He has never had EGD or colonoscopy. 09/06: No complaints today. Hemoglobin stable. No overt GI bleed. Plan for colonoscopy and endoscopy on Thursday 09/07: No complaints today. No overt GI bleed. Pl anning for colonoscopy and endoscopy tomorrow 09/08: EGD mild gastritis. colonoscopy rectal eugenia yp s/p snare. No other abnormalities 09/09: doing well. Seen at the gym. No bleeding. 09/10: Doing well. No bleeding. tolerating diet. Movig bowels 09/11: doing well. States his leg swelling is bet ter. Tolerating diet. having normal BM 09/12: dooing well. doing work-out at the gym. To lerating diet. Normal BMs. Stable H/H 09/14-Sitting up in wheelchair, family at bedside . Denies n/v/abd pain/GIB 09/15: Doing well. H/H stable. No melena or BRBPR . No nausea or vomiting. Appetite is well 09/16: doing well. no complaints. eating well 09/17: stable H/H. No complaints. 09/18/22: H/H fluctuating but overall stable 09/19: H/H stable up to 8 today. No complaints. 09/20: Hemoglobin relatively stable. No complaint Objective Physical Exam HEENT: atraumatic, normocephalic Neck: full range of motion, non-tender Respiratory: symmetric expansion, no distress Abdomen: non-tender, normal bowel sounds, soft, no distention, no guarding Extremities: right BKA Considered stroke alert: no Skin: dry Diagnosis, Assessment Plan Free Text A P: 1. Positive FOBT-and anemia: The patient denies overt GIB, dark tarry stools, nausea, abdominal pain, or vomiting. He is not o n anticoagulation therapy. -Continue PPI. The patient has never had EGD or colonoscopy prior to this admission s/p EGD and colonoscopy. EGD showed mild gastrit is. Colonoscopy showed rectal polyp that was resected by snare. no evidence of bleeding. Pathology of polyp came back as tubular adenoma. recommend repeatin g colonoscopy in 5 years Anemia likely secondary to chronic kidney diseas e and mild oozing from his stump. Can consider video capsule endoscopy as outpt if evidence of dropping H/H H/H remains stable Consider reducing frequency of H/H check Will follow along Consultants: cardiology, endocrinology, hospital ist, infectious disease, podiatry at 1341 RPT #:[id number] END OF REPORT 2022-09-20 10:45:00-00:00 [facility]L [facility] Hospitalist Progress Note REPORT#:[id number] REPORT STATUS: Signed DATE:09/20/22 TIME: 1045 PATIENT: KARMA ROWLAND UNIT #: [id number] ROOM/BED: [place] [address] : 63 AGE: 56 SEX: M ATTEND: Fredy Vences MD ADM AUTHOR: Wilbert Ramires MD * ALL edits or amendments must be made on the [employer] document * Subjective Chief complaint: Edema LLE improved but still present Review of Systems All systems rev neg: except as noted Objective General VS/I O: Vital Signs: Date Time Temp Pulse Resp B/P B/P Pulse O2 O2 F low FiO2 Mean Ox Delivery Rate 09/20 0719 97.7 86 18 149/74 98.7 100 Room air 09/20 0003 97.9 85 16 147/75 99.3 98 09/19 1919 98.1 90 16 157/43 81.1 98 09/19 1528 97.9 86 18 143/74 96.9 95 Room air 24 hour I O ending at 0700: 09/20 0700 09/19 1900 Intake Total 240 960 Output Total 750 1500 Balance -510 -540 Intake, Oral 240 960 Number 0 0 Incontinent Voids Number Voids 0 0 Output, Urine 750 1500 PATIENT WEIGHT: Weight (lb): 167 Weight (oz): 12.35 Weight (kg): 76.100 Medications: Active Meds + DC'd Last 24 Hrs Insulin Glargine (Semglee) 17 UNIT BEDTIME SUBQ Prednisone (predniSONE) 60 MG DAILY 0600 PO Daptomycin (CUBICIN 500MG) 500 MG Q24H IV Sodium Chloride (SODIUM CHLORIDE 0.9%) 50 ML Hydralazine HCl (APRESOLINE) 75 MG Q8HR PO Insulin Human Lispro (HUMALOG) 10 UNIT AC SUBQ Insulin Glargine (Semglee) 20 UNIT BEDTIME SUBQ (DC) Meropenem (MEROPENEM) 500 MG Q8H IV Sterile Water (WATER FOR INJECTION) 10 ML Carvedilol (COREG) 25 MG C BK DIN PO Gabapentin (NEURONTIN) 100 MG Q8HR PO Oxycodone/Acetaminophen (PERCOCET 5/325MG TAB) 2 TAB Q4H PRN PRN PO Folic Acid (FOLIC ACID) 2 MG DAILY PO Multivitamins (TAB-A-MOHAN) 1 TAB DAILY PO Furosemide (LASIX 20MG INJ) 20 MG BLOOD-DOSE BET WEEN IV (CKD) Sodium Chloride (SODIUM CHLORIDE) 10 ML ASDIR IV Pantoprazole Sodium (PROTONIX) 40 MG Q12HR IV Polyethylene Glycol (MIRALAX) 17 GM DAILY PO Sennosides (Senna Lax 8.6 MG TABLET) 8.6 MG MADALYN Y PO Sodium Chloride (SODIUM CHLORIDE) 10 ML ASDIR NV N IV Amitriptyline HCl (ELAVIL) 25 MG BEDTIME PO Zinc Oxide (ZINC OXIDE 30 GM OINTMENT) 1 APPLIC DAILY TOPICAL Sterile Water (WATER FOR IRRIGATION) DRESSING CH GELACIO ASDIR PRN IRR Insulin Human Lispro (HUMALOG) 0 AC HS SUBQ Dextrose/Water (DEXTROSE 10% IN WATER) 125 ML DIR PRN IV (CKD) Dextrose/Water (DEXTROSE 10% IN WATER) 250 ML DIR PRN IV (CKD) Glucagon (GLUCAGON) 1 MG ASDIR PRN IM Lidocaine (LIDODERM) 1 PATCH DAILY TOPICAL Acetaminophen (TYLENOL) 650 MG Q6H PRN PRN PO Bisacodyl (DULCOLAX) 10 MG DAILY PRN PRN RECTAL Docusate Sodium (COLACE) 100 MG Q12H PRN PRN PO Hydralazine HCl (APRESOLINE) 10 MG Q6H PRN PRN IV Ondansetron HCl (ZOFRAN) 4 MG Q6H PRN PRN IV Physical Exam General appearance: alert, awake, oriented Head/Eyes: atraumatic, normocephalic ENT: moist mucosal membranes Neck: no JVD Cardiovascular: normal heart sounds, regular rat e rhythm Respiratory: aerating well, clear to auscultatio n Abdomen: non-tender, normal bowel sounds Genitourinary: no bladder distention Extremities: edema (1+ pitting edema to thigh), moves all, normal capillary refill Musculoskeletal: normal inspection 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 X 3, 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 Considered stroke alert: no Skin: dry, intact Psychiatry: normal affect, normal judgment/insig ht Results Findings/Data: Laboratory Tests 09/20 09/20 09/20 09/19 09/19 0922 0505 0458 1921 1544 Chemistry Sodium (134 - 147 mEq/L) 136 Potassium (3.4 - 5.0 mEq/L) 4.2 Chloride (100 - 108 mEq/L) 107 Carbon Dioxide (21 - 33 mEq/l) 21 Anion Gap (0 - 20) 12 BUN (7 - 18 mg/dL) 76 H Creatinine (0.6 - 1.3 mg/dL) 2.2 H Glomerular Filtr Rate (90 - 95) 33.9 L Glucose (70 - 110 mg/dL) 301 H POC Glucose (70 - 110 MG/DL) 299 H 277 H 236 H 224 H Calcium (8.0 - 10.5 mg/dL) 7.4 L Phosphorus (2.5 - 4.9 MG/DL) 5.4 H Magnesium (1.80 - 2.40 mg/dL) 2.05 09/19 1133 Chemistry POC Glucose (70 - 110 MG/DL) 96 Laboratory Tests 09/20 0505 Hematology WBC (4.5 - 11.0 x10 3/uL) 12.3 H RBC (4.00 - 5.60 x10 6/uL) 2.66 L Hgb (12.5 - 16.9 g/dL) 7.6 L Hct (37.5 - 50.7 %) 23.9 L MCV (81.0 - 99.0 fL) 89.8 MCH (27.0 - 33.0 pg) 28.6 MCHC (33.0 - 37.0 g/dL) 31.8 L RDW (11.5 - 14.5 %) 15.3 H Plt Count (150 - 400 x10 3/uL) 302 MPV (7.0 - 9.0 fL) 9.2 H Neut % (Auto) (56.0 - 77.0 %) 79.7 H Lymph % (Auto) (14.0 - 32.0 %) 13.0 L Boundary % (Auto) (4.8 - 9.0 %) 6.2 Eos % (Auto) (0.3 - 3.7 %) 0.2 L Baso % (Auto) (0.0 - 2.0 %) 0.1 Neut # (Auto) (2.0 - 7.6 x10 3/uL) 9.84 H Lymph # (Auto) (1.0 - 3.8 x10 3/uL) 1.60 Boundary # (Auto) (0.1 - 0.8 x10 3/uL) 0.76 Eos # (Auto) (0.0 - 0.2 x10 3/uL) 0.03 Baso # (Auto) (0.0 - 0.2 x10 3/uL) 0.01 Abs Immat Gran (auto) (0.00 - 0.03 x10 3/uL) 0. 10 H Add Manual Diff NO Immature Gran % (0.0 - 2.0 %) 0.8 Nucleated RBC % (0 - 0 %) 0.0 Nucleated RBCs # (Man) (0.0 - 0.1 x10 3/uL) 0.0 0 Diagnosis, Assessment Plan Consultants: cardiology, endocrinology, hospital ist, infectious disease, podiatry Free Text DxA P Notes Free text DxA P notes: Gangrene of right foot s/p Below- knee amputatio n Prostate abscess MRSA bacteremia Hx of Diabetes, Diabetic neuropathy HTN ERIKA PLANS: Continue with PT/OT per primary Wound care and Abx as per ID Hepain PPX IV iron BP continues to be elevated, Hydralazine increased to 75 mg TID, cont Metoprolol to 25 mg BID BS better but likely to incr ease with re-initiation of steroids x3 days started by Nephrology for AIN - Endo adjusting insulin pain control Cr at 2.2, Nephrology following, re-started Pred nisone 60 mg for 2 days Edema about the same, Lasix as per renal Hgb stabilized. continue to monitor Electronically Signed by Wilbert Ramires MD on at 1045 RPT #:[id number] END OF REPORT 2022-09-20 10:32:00-00:00 [facility] Podiatry Progress Note REPORT#:[id number] REPORT STATUS: Signed DATE:09/20/22 TIME: 1032 PATIENT: KARMA ROWLAND UNIT #: [id number] [place] [facility] [place] AGE: 56 SEX: M ATTEND: Fredy Vences MD ADM AUTHOR: Francisco Singh DPM * ALL edits or amendments must be made on the [employer]/computer document * Subjective Chief complaint: left heel ulcer. left ankle pain HPI: Patient seen at bedside this morning. No acute o vernight events. No changes since yesterday. Review of Systems Constitutional: Denies: chills, fatigue, fever, generalized weak ness. Respiratory: Denies: OVIEDO (dyspnea on exer tion), hemoptysis, non productive cough, productive cough (sputum), SOB. Cardiovascular: Denies: chest pain, OVIEDO (dyspnea on exertion), p alpitations. GI: Denies: abdominal pain, constipation, diarrhea, nausea, vomiting. Neuro: Denies: change in LOC, confusion, dizziness, hea dache, lightheaded. Objective General VS: Last Documented: Result Date Time Pulse Ox 100 09/20 718 B/P 149/74 09/20 718 B/P Mean 98.7 09/20 718 O2 Delivery Room air 09/20 718 Temp 97.7 09/20 718 Pulse 86 09/20 718 Resp 18 09/20 718 O2 Flow Rate 2 09/08 1322 PATIENT WEIGHT: Weight (lb): 167 Weight (oz): 12.35 Weight (kg): 76.100 Medications: Active Meds + DC'd Last 24 Hrs Insulin Glargine (Semglee) 17 UNIT BEDTIME SUBQ Prednisone (predniSONE) 60 MG DAILY 0600 PO Daptomycin (CUBICIN 500MG) 500 MG Q24H IV Sodium Chloride (SODIUM CHLORIDE 0.9%) 50 ML Hydralazine HCl (APRESOLINE) 75 MG Q8HR PO Insulin Human Lispro (HUMALOG) 10 UNIT AC SUBQ Insulin Glargine (Semglee) 20 UNIT BEDTIME SUBQ (DC) Meropenem (MEROPENEM) 500 MG Q8H IV Sterile Water (WATER FOR INJECTION) 10 ML Carvedilol (COREG) 25 MG C BK DIN PO Gabapentin (NEURONTIN) 100 MG Q8HR PO Oxycodone/Acetaminophen (PERCOCET 5/325MG TAB) 2 TAB Q4H PRN PRN PO Folic Acid (FOLIC ACID) 2 MG DAILY PO Multivitamins (TAB-A-MOHAN) 1 TAB DAILY PO Furosemide (LASIX 20MG INJ) 20 MG BLOOD-DOSE BET WEEN IV (CKD) Sodium Chloride (SODIUM CHLORIDE) 10 ML ASDIR IV Pantoprazole Sodium (PROTONIX) 40 MG Q12HR IV Polyethylene Glycol (MIRALAX) 17 GM DAILY PO Sennosides (Senna Lax 8.6 MG TABLET) 8.6 MG MADALYN Y PO Sodium Chloride (SODIUM CHLORIDE) 10 ML ASDIR NV N IV Amitriptyline HCl (ELAVIL) 25 MG BEDTIME PO Zinc Oxide (ZINC OXIDE 30 GM OINTMENT) 1 APPLIC DAILY TOPICAL Sterile Water (WATER FOR IRRIGATION) DRESSING CH GELACIO ASDIR PRN IRR Insulin Human Lispro (HUMALOG) 0 AC HS SUBQ Dextrose/Water (DEXTROSE 10% IN WATER) 125 ML DIR PRN IV (CKD) Dextrose/Water (DEXTROSE 10% IN WATER) 250 ML DIR PRN IV (CKD) Glucagon (GLUCAGON) 1 MG ASDIR PRN IM Lidocaine (LIDODERM) 1 PATCH DAILY TOPICAL Acetaminophen (TYLENOL) 650 MG Q6H PRN PRN PO Bisacodyl (DULCOLAX) 10 MG DAILY PRN PRN RECTAL Docusate Sodium (COLACE) 100 MG Q12H PRN PRN PO Hydralazine HCl (APRESOLINE) 10 MG Q6H PRN PRN I V Ondansetron HCl (ZOFRAN) 4 MG Q6H PRN PRN IV I O: 24 hour I O ending at 0700: 09/20 0700 09/19 1900 Intake Total 240 960 Output Total 750 1500 Balance -510 -540 Intake, Oral 240 960 Number 0 0 Incontinent Voids Number Voids 0 0 Output, Urine 750 1500 Dietitian nutrition assessment The data set between the solid lines has been im ported from the dietitian's assessment. BMI Calculated: 27.1 Nutrition related diagnosis: Nutrition diagnosis details: Nutrition problem: Altered nutrition labs Nutrition etiology: DM Nutrition signs and symptoms: HYPER/HYPOGLYCEMIA , A1C >14 Nutrition prescription: CONTINUE RENAL DM DIET Dietitian name: You Palmer, DIET Assessment completed: 09/18/22 Physical Exam General appearance: alert, awake, oriented, no a cute distress, pleasant, conversational, mental status normal, no respira tory distress Wound/incision: Location: left foot Site condition: dp/pt 2/4 left. light touch dec reased left foot. ulcer starting at posterior left heel. eccymosis noted . early likely stage 1. left ankle has edema. pain with aggressive ROM left a nkle. dorsal left midfoot is starting to have tissue injury LE vascular pulse assess: 2+ L posterior tibialis, 2+ L dorsalis pedis Considered stroke alert: no Ulcer: Location: DTI dorsal left midfoot Results Findings/Data: Laboratory Tests: 09/20 09/20 09/20 09/19 09/19 0922 0505 0458 1921 1544 Chemistry Sodium (134 - 147 mEq/L) 136 Potassium (3.4 - 5.0 mEq/L) 4.2 Chloride (100 - 108 mEq/L) 107 Carbon Dioxide (21 - 33 mEq/l) 21 Anion Gap (0 - 20) 12 BUN (7 - 18 mg/dL) 76 H Creatinine (0.6 - 1.3 mg/dL) 2.2 H Glomerular Filtr Rate (90 - 95) 33.9 L Glucose (70 - 110 mg/dL) 301 H POC Glucose (70 - 110 MG/DL) 299 H 277 H 236 H 224 H Calcium (8.0 - 10.5 mg/dL) 7.4 L Phosphorus (2.5 - 4.9 MG/DL) 5.4 H Magnesium (1.80 - 2.40 mg/dL) 2.05 Hematology WBC (4.5 - 11.0 x10 3/uL) 12.3 H RBC (4.00 - 5.60 x10 6/uL) 2.66 L Hgb (12.5 - 16.9 g/dL) 7.6 L Hct (37.5 - 50.7 %) 23.9 L MCV (81.0 - 99.0 fL) 89.8 MCH (27.0 - 33.0 pg) 28.6 MCHC (33.0 - 37.0 g/dL) 31.8 L RDW (11.5 - 14.5 %) 15.3 H Plt Count (150 - 400 x10 3/uL) 302 MPV (7.0 - 9.0 fL) 9.2 H Neut % (Auto) (56.0 - 77.0 %) 79.7 H Lymph % (Auto) (14.0 - 32.0 %) 13.0 L Boundary % (Auto) (4.8 - 9.0 %) 6.2 Eos % (Auto) (0.3 - 3.7 %) 0.2 L Baso % (Auto) (0.0 - 2.0 %) 0.1 Neut # (Auto) (2.0 - 7.6 x10 3/uL) 9.84 H Lymph # (Auto) (1.0 - 3.8 x10 3/uL) 1.60 Boundary # (Auto) (0.1 - 0.8 x10 3/uL) 0.76 Eos # (Auto) (0.0 - 0.2 x10 3/uL) 0.03 Baso # (Auto) (0.0 - 0.2 x10 3/uL) 0.01 Abs Immat Gran (auto) (0.00 - 0.03 0.10 H x10 3/uL) Add Manual Diff NO Immature Gran % (0.0 - 2.0 %) 0.8 Nucleated RBC % (0 - 0 %) 0.0 Nucleated RBCs # (Man) (0.0 - 0.1 0.00 x10 3/uL) 09/19 1133 Chemistry POC Glucose (70 - 110 MG/DL) 96 Diagnosis, Assessment Plan Free Text A P: DM with neuropathy early decub ulcer left heel OA/edema left ankle early ulcer/DTI dorsal left midfoot Labs reviewed zinc oxide to foot and heel foam to heel on IV abx on PO gabapentin offloading boot oralia wraps to ankle, only when OOB with therapy. zinc oxide interchange with bactroban to dorsal left foot Covering for Dr. Pedersen Consultants: cardiology, endocrinology, hospital ist, infectious disease, podiatry at 1620 RPT #:[id number] END OF REPORT 2022-09-20 09:08:00-00:00 [facility] ([facility]) Nephrology Progress Note REPORT#:[id number] REPORT STATUS: Signed DATE:09/20/22 TIME: 907 PATIENT: KARMA ROWLAND UNIT #: [id number] ROOM/BED: [place] [address] : 61 AGE: 56 SEX: M ATTEND: Fredy Vences MD ADM AUTHOR: Barrera Ramírez MD * ALL edits or amendments must be made on the [employer]/computer document * Subjective Chief complaint: Infected foot HPI: Patient seen and evaluated on 09/09/2022, note [facility], records reviewed and orders placed on 09/08/2022, 56-year-old male with history of diabetes mellitus type 2, hypertension and per ipheral vascular disease who was initially admitted to acute care with altered mental status and rig ht foot infection/gangrene, 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 Patient had persistent anemia requiring blood transfusion. H is fecal occult blood was positive and his creatinine was 1.2 and increase d to 1.4 today, laboratories today showed hemoglobin 8.5, platelet 231, blood count 9.1, sodium 135, potassium 4.6, CO2 22, BUN 22, creatinin e 1.4. Renal consult was requested for evaluation management of pako vated BUN and creatinine and if his decreased GFR is contributing to his anemia. Patient reports: Yes: complaints. Comments: Patient seen and evaluated, HPI no change from i nitial, feels okay. Review of Systems Constitutional: Reports: fatigue. Denies: chills, fever. Skin: Denies: abrasion, bruising. Allergy/Immun: Denies: hives, itching. Eyes: Denies: redness, discharge. ENT: Denies: ear drainage, ear ringing. Respiratory: Denies: hemoptysis, SOB. Cardiovascular: Denies: chest pain. Objective General VS/I O: Vital Signs: Date Time Temp Pulse Resp B/P B/P Pulse O2 O2 F low FiO2 Mean Ox Delivery Rate 09/20 0719 36.5 86 18 149/74 98.7 100 Room air 09/20 0003 36.6 85 16 147/75 99.3 98 09/19 1919 36.7 90 16 157/43 81.1 98 09/19 1528 36.6 86 18 143/74 96.9 95 Room air 24 hour I O ending at 0700: 09/20 0700 09/19 1900 Intake Total 240 960 Output Total 750 1500 Balance -510 -540 Intake, Oral 240 960 Number 0 0 Incontinent Voids Number Voids 0 0 Output, Urine 750 1500 PATIENT WEIGHT: Weight (lb): 167 Weight (oz): 12.35 Weight (kg): 76.100 Medications Active Meds + DC'd Last 24 Hrs Insulin Glargine (Semglee) 17 UNIT BEDTIME SUBQ Magnesium Sulfate (MAGNESIUM SULFATE 2GM/SWFI 50 ML) 50 ML ONCE ONE IV ( DC) Prednisone (predniSONE) 60 MG DAILY 0600 PO Daptomycin (CUBICIN 500MG) 500 MG Q24H IV Sodium Chloride (SODIUM CHLORIDE 0.9%) 50 ML Hydralazine HCl (APRESOLINE) 75 MG Q8HR PO Insulin Human Lispro (HUMALOG) 10 UNIT AC SUBQ Insulin Glargine (Semglee) 20 UNIT BEDTIME SUBQ (DC) Meropenem (MEROPENEM) 500 MG Q8H IV Sterile Water (WATER FOR INJECTION) 10 ML Carvedilol (COREG) 25 MG C BK DIN PO Gabapentin (NEURONTIN) 100 MG Q8HR PO Oxycodone/Acetaminophen (PERCOCET 5/325MG TAB) 2 TAB Q4H PRN PRN PO Folic Acid (FOLIC ACID) 2 MG DAILY PO Multivitamins (TAB-A-MOHAN) 1 TAB DAILY PO Furosemide (LASIX 20MG INJ) 20 MG BLOOD-DOSE BET WEEN IV (CKD) Sodium Chloride (SODIUM CHLORIDE) 10 ML ASDIR IV Pantoprazole Sodium (PROTONIX) 40 MG Q12HR IV Polyethylene Glycol (MIRALAX) 17 GM DAILY PO Sennosides (Senna Lax 8.6 MG TABLET) 8.6 MG MADALYN Y PO Sodium Chloride (SODIUM CHLORIDE) 10 ML ASDIR NV N IV Amitriptyline HCl (ELAVIL) 25 MG BEDTIME PO Zinc Oxide (ZINC OXIDE 30 GM OINTMENT) 1 APPLIC DAILY TOPICAL Sterile Water (WATER FOR IRRIGATION) DRESSING CH GELACIO ASDIR PRN IRR Insulin Human Lispro (HUMALOG) 0 AC HS SUBQ Dextrose/Water (DEXTROSE 10% IN WATER) 125 ML DIR PRN IV (CKD) Dextrose/Water (DEXTROSE 10% IN WATER) 250 ML DIR PRN IV (CKD) Glucagon (GLUCAGON) 1 MG ASDIR PRN IM Lidocaine (LIDODERM) 1 PATCH DAILY TOPICAL Acetaminophen (TYLENOL) 650 MG Q6H PRN PRN PO Bisacodyl (DULCOLAX) 10 MG DAILY PRN PRN RECTAL Docusate Sodium (COLACE) 100 MG Q12H PRN PRN PO Hydralazine HCl (APRESOLINE) 10 MG Q6H PRN PRN I V Ondansetron HCl (ZOFRAN) 4 MG Q6H PRN PRN IV Physical Exam General appearance: alert, no acute distress Head/eyes: atraumatic, normocephalic ENT: normal nose Neck: non-tender, supple/no meningismus Cardiovascular: normal heart sounds, no rub Respiratory: aerating well, symmetric expansion Abdomen: non-tender, soft Genitourinary: no flank pain Extremities: non-tender, no edema Musculoskeletal: no CVA tenderness, no tendernes s 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, 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 Considered stroke alert: no Skin: dry, intact Results Findings/Data: Laboratory Tests 09/20 09/20 09/19 09/19 09/19 0505 0458 1921 1544 1133 Chemistry Sodium (134 - 147 mEq/L) 136 Potassium (3.4 - 5.0 mEq/L) 4.2 Chloride (100 - 108 mEq/L) 107 Carbon Dioxide (21 - 33 mEq/l) 21 Anion Gap (0 - 20) 12 BUN (7 - 18 mg/dL) 76 H Creatinine (0.6 - 1.3 mg/dL) 2.2 H Glomerular Filtr Rate (90 - 95) 33.9 L Glucose (70 - 110 mg/dL) 301 H POC Glucose (70 - 110 MG/DL) 277 H 236 H 224 H 96 Calcium (8.0 - 10.5 mg/dL) 7.4 L Phosphorus (2.5 - 4.9 MG/DL) 5.4 H Magnesium (1.80 - 2.40 mg/dL) 2.05 Laboratory Tests 09/20 0505 Hematology WBC (4.5 - 11.0 x10 3/uL) 12.3 H RBC (4.00 - 5.60 x10 6/uL) 2.66 L Hgb (12.5 - 16.9 g/dL) 7.6 L Hct (37.5 - 50.7 %) 23.9 L MCV (81.0 - 99.0 fL) 89.8 MCH (27.0 - 33.0 pg) 28.6 MCHC (33.0 - 37.0 g/dL) 31.8 L RDW (11.5 - 14.5 %) 15.3 H Plt Count (150 - 400 x10 3/uL) 302 MPV (7.0 - 9.0 fL) 9.2 H Neut % (Auto) (56.0 - 77.0 %) 79.7 H Lymph % (Auto) (14.0 - 32.0 %) 13.0 L Boundary % (Auto) (4.8 - 9.0 %) 6.2 Eos % (Auto) (0.3 - 3.7 %) 0.2 L Baso % (Auto) (0.0 - 2.0 %) 0.1 Neut # (Auto) (2.0 - 7.6 x10 3/uL) 9.84 H Lymph # (Auto) (1.0 - 3.8 x10 3/uL) 1.60 Boundary # (Auto) (0.1 - 0.8 x10 3/uL) 0.76 Eos # (Auto) (0.0 - 0.2 x10 3/uL) 0.03 Baso # (Auto) (0.0 - 0.2 x10 3/uL) 0.01 Abs Immat Gran (auto) (0.00 - 0.03 x10 3/uL) 0. 10 H Add Manual Diff NO Immature Gran % (0.0 - 2.0 %) 0.8 Nucleated RBC % (0 - 0 %) 0.0 Nucleated RBCs # (Man) (0.0 - 0.1 x10 3/uL) 0.0 0 Diagnosis, Assessment Plan Free Text A P: Patient seen and evaluated, discussed with care team, images and laboratories reviewed. Diabetes mellitus: Insulin: Monitor bloo d sugar closely and adjust medications as needed, followed by endocrinology. Hypertension: Blood pressure is not well controlled, increase Coreg to 12.5 mg p.o. 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 We will check serum immu nofixation. Acute kidney injury: We will check renal bladder ultrasound, check postvoid residual, check urine protein creatinine ratio Hypomagnesemia: We will supplement 09/10/2022 laboratory this mo rning showed sodium 135, potassium 4.2, CO2 21, BUN 25, creatinine 1.9 continues to worsen, etiology unclear, however his development some eosinophili a not sure if he is developing AIN, suggest changing cefepime to a different class of antibiotic if p ossible, will check renal bladder ultrasound 09/11/2022 laboratory this mo rning showed sodium 134, potassium 4.3, CO2 22, BUN 26, creatinine 2 up from 1.9, hopefully creatini ne is plateauing, renal ultrasound negative. 09/12/2022 laboratory this mo rning showed sodium 134, potassium 4.2, CO2 20, BUN 31, creatinine 2.4 continues to worsen, discussed with ID, AIN is probably the etiology of the unexplained deterioration of his renal function, antibiotics to be adjusted by infectious disease, will give Solu-Medrol 125 mg IV daily for 3 days. Significant lower extremity edema, will st art Lasix 20 mg p.o. twice daily. 09.13.22: pt was seen and examined. Very thirsty. serum creatinine is worsening today. Vancomycin was stopped yesterday and Solu medrol was started. Mild hypovolemic hyponatremia. Will DC lasix and monitor his renal functions. BP is well controlled. 23: pt was seen and exa mined. Feels better but still thirsty. I stopped his lasix. will start NS at 75 c c for one Leter only. serum creatinine is improving. Received three doses of Solu Medrol a well. BP i s on the higher side, likely secondary to steroids. will monitor for now. mild hypovelmic hyponatremia. also could be secondary to hyperglycemia. 09/15/2022 we will give additional dose of Solu-M edrol 125 mg IV today, laboratory this morning show ed sodium 132, potassium 4.7, CO2 17, chloride 105, BUN 38, creatinine 2.9, glucose 312, hem oglobin 8.2, platelet 341, blood count 8.7, needs better blood sugar control, if creati nine does not start improving the next couple days will plan for kidney biopsy 09/16/2022 laboratory this mo rning showed sodium 135, potassium 4.5, CO2 20, BUN 60, creatinine 2.7, better down from 2.9, hemogl obin 7.6, platelet 360, blood count 9.5, will give prednisone 80 mg p.o. today , blood pressure is elevated, will add hydralazine 25 mg p .o. 3 times daily, scrotal and LE swelling will give Lasix 40 mg IV x 3 09/17/2022 blood pressure sti ll elevated, will increase hydralazine to 50 mg p.o. 3 times daily, will give 80 mg of prednisone today, urine output with Lasix 4125 , laboratory this morning showed sodium 136, pot assium 4.5, CO2 21, BUN 66, creatinine 2.4 down from 2.7, will give 3 more doses of IV Lasix 40 mg every 8 hours 09/18/2022 laboratory this mo rning showed sodium 138, potassium 4.1, CO2 21, BUN 66, creatinine 2.2 continues to improve, urine o utput 2.7 L, hemoglobin 7.6, platelet 341, blood count 10.6, will give Lasix 40 mg IV every 8 for 3 doses, start prednisone 60 mg p.o. daily for 3 days, increase hydralazine to 75 mg p.o. 3 times daily. 09/19/2022 blood pressure better, sodium 139, pot assium 3.8, CO2 22, BUN 72 up from 66, creatinine 2.3 up from 2.2, will hold o ff diuretics, urine output reported 2 L, magnesium 1.69 we will give magnesium sulfate 2 g IV x1, continue prednisone. 09/20/2022 laboratory this mo rning showed sodium 136, potassium 4.2, CO2 21, BUN 76, creatinine 2.2 down from 2.3, hemoglobin 7.6, platelet 302, blood count 12.3 , continue off diuretics Consultants: cardiology, endocrinology, hospital ist, infectious disease, podiatry Electronically Signed by Barrera Ramírez MD on at 1137 RPT #:[id number] END OF REPORT 2022-09-20 08:44:00-00:00 [facility] ([facility]) Pain Management Progress Note REPORT#:[id number] REPORT STATUS: Signed DATE:09/20/22 TIME: 843 PATIENT: KARMA ROWLAND UNIT #: [id number] ROOM/BED: [place] [address] : 63 AGE: 56 SEX: M ATTEND: Fredy Vences MD ADM AUTHOR: Ben Klein * ALL edits or amendments must be made on the [employer]/computer document * Ben Klein 09/20/22 0844: Subjective Chief complaint: Patient seen and examined. Chart/MAR reviewed. Patient patient feels well this morning. Events noted. Pain control improving. No bothersome muscle spasms or neuropathy sympto ms to report. Patient being seen for Acute postoperative pain, right foot and ankle gangrene, requiring BKA, Neuropathy, Constipatio n Patient is still requiring medications to help w ith managing current problems. No fever/chills, chest pain, orthopnea, nausea/v omiting, pruritus, or hallucinations. 14 point ROS undertaken unremarkable except as n oted Objective General VS/I O: Vital Signs Date Temp Pulse Resp B/P B/P Mean Pulse Ox FiO2 09/19-09/20 36.5-36.7 85-90 16-18 143-157/43-75 81.1-99.3 95-100 Last Documented: Result Date Time Pulse Ox 100 09/20 718 B/P 149/74 09/20 0619 B/P Mean 98.7 09/20 718 O2 Delivery Room air 09/20 718 Temp 36.5 09/20 718 Pulse 86 09/20 718 Resp 18 09/20 718 O2 Flow Rate 2 09/08 1322 24 hour I O ending at 0700: 09/20 0700 09/19 1900 Intake Total 240 960 Output Total 750 1500 Balance -510 -540 Intake, Oral 240 960 Number 0 0 Incontinent Voids Number Voids 0 0 Output, Urine 750 1500 PATIENT WEIGHT: Weight (lb): 167 Weight (oz): 12.35 Weight (kg): 76.100 Medications: Active Meds + DC'd Last 24 Hrs Insulin Glargine (Semglee) 17 UNIT BEDTIME SUBQ Magnesium Sulfate (MAGNESIUM SULFATE 2GM/SWFI 50 ML) 50 ML ONCE ONE IV ( DC) Prednisone (predniSONE) 60 MG DAILY 0600 PO Daptomycin (CUBICIN 500MG) 500 MG Q24H IV Sodium Chloride (SODIUM CHLORIDE 0.9%) 50 ML Hydralazine HCl (APRESOLINE) 75 MG Q8HR PO Insulin Human Lispro (HUMALOG) 10 UNIT AC SUBQ Insulin Glargine (Semglee) 20 UNIT BEDTIME SUBQ (DC) Meropenem (MEROPENEM) 500 MG Q8H IV Sterile Water (WATER FOR INJECTION) 10 ML Carvedilol (COREG) 25 MG C BK DIN PO Gabapentin (NEURONTIN) 100 MG Q8HR PO Oxycodone/Acetaminophen (PERCOCET 5/325MG TAB) 2 TAB Q4H PRN PRN PO Folic Acid (FOLIC ACID) 2 MG DAILY PO Multivitamins (TAB-A-MOHAN) 1 TAB DAILY PO Furosemide (LASIX 20MG INJ) 20 MG BLOOD-DOSE BET WEEN IV (CKD) Sodium Chloride (SODIUM CHLORIDE) 10 ML ASDIR IV Pantoprazole Sodium (PROTONIX) 40 MG Q12HR IV Polyethylene Glycol (MIRALAX) 17 GM DAILY PO Sennosides (Senna Lax 8.6 MG TABLET) 8.6 MG MADALYN Y PO Sodium Chloride (SODIUM CHLORIDE) 10 ML ASDIR NV N IV Amitriptyline HCl (ELAVIL) 25 MG BEDTIME PO Zinc Oxide (ZINC OXIDE 30 GM OINTMENT) 1 APPLIC DAILY TOPICAL Sterile Water (WATER FOR IRRIGATION) DRESSING CH GELACIO ASDIR PRN IRR Insulin Human Lispro (HUMALOG) 0 AC HS SUBQ Dextrose/Water (DEXTROSE 10% IN WATER) 125 ML DIR PRN IV (CKD) Dextrose/Water (DEXTROSE 10% IN WATER) 250 ML DIR PRN IV (CKD) Glucagon (GLUCAGON) 1 MG ASDIR PRN IM Lidocaine (LIDODERM) 1 PATCH DAILY TOPICAL Acetaminophen (TYLENOL) 650 MG Q6H PRN PRN PO Bisacodyl (DULCOLAX) 10 MG DAILY PRN PRN RECTAL Docusate Sodium (COLACE) 100 MG Q12H PRN PRN PO Hydralazine HCl (APRESOLINE) 10 MG Q6H PRN PRN I V Ondansetron HCl (ZOFRAN) 4 MG Q6H PRN PRN IV Physical Exam General appearance: alert, awake, oriented Head/eyes: atraumatic, EOMI, normocephalic, norm al conjunctiva/sclera, PERRLA ENT: normal ear left Neck: full range of motion, no lymphadenopathy, supple/no meningismus Cardiovascular: regular rate rhythm Respiratory: aerating well Abdomen: soft, non-tender, no distention , active bowel sounds in all quarants. 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: 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, no sensory deficit s, CNII-XII grossly intact Considered stroke alert: no Skin: dry, intact, no rash Lymphatics: axilla normal Psychiatry: normal affect Results Findings/data: Laboratory Tests: 09/20 09/20 09/19 09/19 09/19 0505 0458 1921 1544 1133 Chemistry Sodium (134 - 147 mEq/L) 136 Potassium (3.4 - 5.0 mEq/L) 4.2 Chloride (100 - 108 mEq/L) 107 Carbon Dioxide (21 - 33 mEq/l) 21 Anion Gap (0 - 20) 12 BUN (7 - 18 mg/dL) 76 H Creatinine (0.6 - 1.3 mg/dL) 2.2 H Glomerular Filtr Rate (90 - 95) 33.9 L Glucose (70 - 110 mg/dL) 301 H POC Glucose (70 - 110 MG/DL) 277 H 236 H 224 H 96 Calcium (8.0 - 10.5 mg/dL) 7.4 L Phosphorus (2.5 - 4.9 MG/DL) 5.4 H Magnesium (1.80 - 2.40 mg/dL) 2.05 Hematology WBC (4.5 - 11.0 x10 3/uL) 12.3 H RBC (4.00 - 5.60 x10 6/uL) 2.66 L Hgb (12.5 - 16.9 g/dL) 7.6 L Hct (37.5 - 50.7 %) 23.9 L MCV (81.0 - 99.0 fL) 89.8 MCH (27.0 - 33.0 pg) 28.6 MCHC (33.0 - 37.0 g/dL) 31.8 L RDW (11.5 - 14.5 %) 15.3 H Plt Count (150 - 400 x10 3/uL) 302 MPV (7.0 - 9.0 fL) 9.2 H Neut % (Auto) (56.0 - 77.0 %) 79.7 H Lymph % (Auto) (14.0 - 32.0 %) 13.0 L Boundary % (Auto) (4.8 - 9.0 %) 6.2 Eos % (Auto) (0.3 - 3.7 %) 0.2 L Baso % (Auto) (0.0 - 2.0 %) 0.1 Neut # (Auto) (2.0 - 7.6 x10 3/uL) 9.84 H Lymph # (Auto) (1.0 - 3.8 x10 3/uL) 1.60 Boundary # (Auto) (0.1 - 0.8 x10 3/uL) 0.76 Eos # (Auto) (0.0 - 0.2 x10 3/uL) 0.03 Baso # (Auto) (0.0 - 0.2 x10 3/uL) 0.01 Abs Immat Gran (auto) (0.00 - 0.03 0.10 H x10 3/uL) Add Manual Diff NO Immature Gran % (0.0 - 2.0 %) 0.8 Nucleated RBC % (0 - 0 %) 0.0 Nucleated RBCs # (Man) (0.0 - 0.1 0.00 x10 3/uL) Diagnosis, Assessment Plan Free text A P: A/P: Patient is a 56 year old male who presents with: Past Medical History: Prostate abscess, right fo ot foot and ankle gangrene, diabetes, hypertension, hyperlipidemia Past Surgical History: TURP, right BKA Family History: Noncontributory Social History: Denies tobacco, alcohol, or drug use Allergies: NKDA Recent prostate abscess -Status post TURP with unroofing of abscess -IV antibiotics with vancomycin until 09-24-2022 Acute postoperative pain, right foot and ankle g angrene, requiring BKA -Patient is at risk for further amputations or l oss of limb due to comorbid conditions -Status post right BKA 08/28/2022 -DC Check 10/325 1 tablet p.o. every 4 hours as needed pain scale 4 10 -DC Dilaudid 0.5 mg IV daily as needed pain scale 7 10, second line therapy () -Tylenol 650 mg p.o. every 6 hours as needed ofelia n scale 1 3 -Percocet 10/325mg every 4 hours as needed, pain scale 4-10 (09/10) -Lidoderm patch to left ankle daily -IV antibiotics with vancomycin until 09-24-2022 -Local wound care -manageable Diabetic peripheral neuropathy -amitriptyline 25mg PO QHS -Gabapentin 100mg every 8 hours (09/10) -manageable Hypertension -We will monitor hypertension and tachycardia du e to pain, and hypotension as well as bradycardia secondary over sedation with narcotics -Hydralazine as needed Elevated LFTs -08/20/22-AST 51, ALT 22 -09/03/2022-AST 15, ALT 7 -Patient will require close monitoring since he is using narcotics with Tylenol Impaired functional mobility, balance, gait, and endurance -PT/OT Antalgic/Impaired gait -PT/OT -Improve strength, endurance, self-care, gait, b alance, ADLs -Fall precautions per unit protocol -Pain medications as outlined above Constipation -We will monitor while utilizing opioid narcotic medications. -Adequate fluid intake also discussed. -Colace 100 mg p.o. twice daily as needed -Dulcolax 10 mg rectally daily as needed -Senna lax 8.6mg daily -Miralax 17gm daily -manageable Disposition: percocet 10/325 mg q6h prn pain , gabapentin 100mg q8h sent to [facility] pharmacy #[id number] [facility][[address]] [place], [place] [address] [address] Phone: Patient has failed conservative medical therapy. Patient will require monitoring while utilize na rcotic medications for any adverse effects, and will adjust as needed Plan of care discussed with patient and nurse All diagnostics of last 24 hours been reviewed. Risks versus benefits of opioid medications were reviewed to include, but not limited to respiratory depression, accid ental overdose, altered mental status, sudden , constipation which could result in bowel obstruction, seizures, withdrawal, dependency addiction, risk for falls . Case discussed with Dr Ng whom agrees. Thank you for the consultation. [place] [facility] NURSE: -database searched, no information found Kingsley Ng 10/08/222044: Attestations Physician Attestation Agree w/findings plan: The patient was seen and exa mined by Ben Klein. I personally developed the care plan, which was continued by the mid-level provider. I was immediately available. at 1124 Electronically Signed by Kingsley Ng MD on 3 at 2046 RPT #:[id number] END OF REPORT 2022-09-20 06:21:00-00:00 [facility] Progress Note REPORT#:[id number] REPORT STATUS: Signed DATE:09/20/22 TIME: 620 PATIENT: KARMA ROWLAND UNIT #: [id number] ROOM/BED: [place] [address] : 63 AGE: 56 SEX: M ATTEND: Fredy Vences MD ADM AUTHOR: Guero Candelaria * ALL edits or amendments must be made on the el [employer]/computer document * Subjective Chief complaint: Rehab follow-up Doing better BKA site without bleeding Generalized and scrotal edema slowly improving BP improved Eating 75-100% at bedside + BM Denies MCBRIDE/N/V/D/CP 14 systems reviewed and neg. except that above. History of present illness: 56 yo HAM with long h/o DM, and HTN who was admitted for fever, flulike symptoms and altered mental status on 08/18. He was doing well until about 3 days prior to admission when he noted blister to have formed o n the dorsum of his foot. His foot started progressively getting more swollen and the blisters started enlarging and extending to his lateral f oot and ankle. He started feeling weak and nauseated. He was noted to have altered mentation and was brought to our ER. He was noted to be in DKA with Blood sugars grea ter than 600. He was seen by podiatry and surgery for BLE wounds and infectio n. He was treated in ICU for sepsis and DKA. He underwent incisional and excisional debridement of right foot and right ankle by podiatry. Patient also found to have prostate abscess underwent transrectal ultrasound aspiration of a bscess and transurethral resection of prostate and unroofing of abscess b y urology Dr. Bass. Endocrinology treated the DKA and blood sugars m uch improved. Patient's right foot was not salvageable and patient und erwent right BKA by Dr. LEROY on 08/28. Patient blood cultures showe d MRSA. Patient continued on antibiotics as per ID. MRI of the pelvis and foot completed. Patient r equired multiple PRBCs for anemia. Patient was found to have a possible small hematoma of the left calf on ultrasound. He complains of pain and swelling of the left ankle. Patient hemodynamically stable and plans are to be transferred to stepdown unit. He is on heparin subcu for VTE. Af ter surgery he is now being mobilized by PT and OT. He is wearing a [employer]or-[employer] orthotic for right knee /BKA protection. Prior to admission the patient was independent living in a single-story house with his spouse with a few steps up to front and back doo r. 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 is at bedside. Patient denie s nausea, vomiting, fever, chills, chest pain, shortness of breath with diz ziness. He is requiring IV Dilaudid for pain control. Mental status back to baseline. Pt is progressing slowly with therapy d/t weakness and pain, self care deficit, decreased endurance and balance, and decreased functional mobility. Pt requiring acute inpt rehab for multidiscipli nary team of nursing, therapy, and physicians. Pt is willing and able to partici- kathleen in 3 hr/day inpt rehab to d/c home safely. Pt' s prior level of function was independent. Objective General VS: Vital Signs: Date Time Temp Pulse Resp B/P B/P Pulse O2 O2 F low FiO2 Mean Ox Delivery Rate 09/20 0003 97.9 85 16 147/75 99.3 98 09/19 1919 98.1 90 16 157/43 81.1 98 09/19 1528 97.9 86 18 143/74 96.9 95 Room air 09/19 0655 98.4 90 17 138/68 91.6 98 Room air PATIENT WEIGHT: Weight (lb): 167 Weight (oz): 12.35 Weight (kg): 76.100 Medications: Active Meds + DC'd Last 24 Hrs Insulin Glargine (Semglee) 17 UNIT BEDTIME SUBQ Magnesium Sulfate (MAGNESIUM SULFATE 2GM/SWFI 50 ML) 50 ML ONCE ONE IV ( DC) Prednisone (predniSONE) 60 MG DAILY 0600 PO Daptomycin (CUBICIN 500MG) 500 MG Q24H IV Sodium Chloride (SODIUM CHLORIDE 0.9%) 50 ML Hydralazine HCl (APRESOLINE) 75 MG Q8HR PO Insulin Human Lispro (HUMALOG) 10 UNIT AC SUBQ Insulin Glargine (Semglee) 20 UNIT BEDTIME SUBQ (DC) Meropenem (MEROPENEM) 500 MG Q8H IV Sterile Water (WATER FOR INJECTION) 10 ML Carvedilol (COREG) 25 MG C BK DIN PO Gabapentin (NEURONTIN) 100 MG Q8HR PO Oxycodone/Acetaminophen (PERCOCET 5/325MG TAB) 2 TAB Q4H PRN PRN PO Folic Acid (FOLIC ACID) 2 MG DAILY PO Multivitamins (TAB-A-MOAHN) 1 TAB DAILY PO Furosemide (LASIX 20MG INJ) 20 MG BLOOD-DOSE BET WEEN IV (CKD) Sodium Chloride (SODIUM CHLORIDE) 10 ML ASDIR IV Pantoprazole Sodium (PROTONIX) 40 MG Q12HR IV Polyethylene Glycol (MIRALAX) 17 GM DAILY PO Sennosides (Senna Lax 8.6 MG TABLET) 8.6 MG MADALYN Y PO Sodium Chloride (SODIUM CHLORIDE) 10 ML ASDIR NV N IV Amitriptyline HCl (ELAVIL) 25 MG BEDTIME PO Zinc Oxide (ZINC OXIDE 30 GM OINTMENT) 1 APPLIC DAILY TOPICAL Sterile Water (WATER FOR IRRIGATION) DRESSING CH GELACIO ASDIR PRN IRR Insulin Human Lispro (HUMALOG) 0 AC HS SUBQ Dextrose/Water (DEXTROSE 10% IN WATER) 125 ML DIR PRN IV (CKD) Dextrose/Water (DEXTROSE 10% IN WATER) 250 ML DIR PRN IV (CKD) Glucagon (GLUCAGON) 1 MG ASDIR PRN IM Lidocaine (LIDODERM) 1 PATCH DAILY TOPICAL Acetaminophen (TYLENOL) 650 MG Q6H PRN PRN PO Bisacodyl (DULCOLAX) 10 MG DAILY PRN PRN RECTAL Docusate Sodium (COLACE) 100 MG Q12H PRN PRN PO Hydralazine HCl (APRESOLINE) 10 MG Q6H PRN PRN I V Ondansetron HCl (ZOFRAN) 4 MG Q6H PRN PRN IV Functional Progress Functional progress: PT daily note comment: S. PATIENT REPORTED DEC SWELLING TO LE AND IMPROVED KIDNEY FUNCTION , STATES HE IS HAPPY TO IMPROVE WITH STAND PIVOT TRANSFERS USING RW. PATIENT REPORTS FEELING STRONGER AND STAES HIS IS FEELING MORE COMFORTABLE WIT H ORALIA WRAPPING R STUMP O. PATIENT SUPINE IN BED WORKED ON LE EX TO INCREASE STRNEGTH, EDUCATED SPOUSE ON STUMP WRAPPING, SPOUSE REPORTED MULTIPLE DRS HAVE EXAMINED STUMP TODAY. LENNY Mendosa ABLE TO SIT U PEOB WITH MOD I USING RAILS, WORKED ON SQUAT PIVOT WITH ASSISTANCE FOR WC SET UP TO LEFT, CGA FOR SQUA T PIVOT, ASSIST APPLYING FLOT TECH AND LEG REST. PATIENT WORKED ON WC PROPULSION WITH MOD I 200 FEET , EDUCATED ON LOCKING BRAKES, SCOOTING TO EDGE OF WC, PUSHING OF WC AND USING RW DURING STAND PIVOT TRANSFERS TO MOVEO. REQUIRD MOD A F OR SIT TO STANDS USING AND CGA FOR PIVOT TO MOVEO. LENNY Mendosa WORKED ON LE STRNEGTHENING AT 10DEGREE INCLINE 10 REPSX 6 STEPS, INCREAESD TO 15 DEGREES 2 X 10 REPS. LOCKED AT 6 POSITION . PATIENT WORKED ON STAND PIVOT FROM MOVEO HIGHER SURFACE TO WITH MIN A FOR SAFETY . PROGRESSED LE EX TO 4LB ANKLE WEIGHT STO WORK ON SAQ TO LLE. HIP ABD, PATIENT EDUCATD ON STAND PIVOT TRANSFERS RECOMMEND USING A STEP FOR CAR TRANSFERS TO ASSIST WITH SCOOTING UP IN SEAT. PATIENT WORKED ON WC MOBILITY 400FEET , STAND PIVOT WITH MIN A USING RW AND LEFT SUPINE IN BED WITH CALL BUTTON IN REACH , FOR LUNCH. SPOUSE AT BEDSIDE, A. 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 SPOUSE IS FEELING MORE COMFORTABLE WITH WOUND CARE AND FIGURE 8 ORALIA WRAPPING. P, CONTINUE WITH POC WITH AN EMPHASIS ON TRANSFERS WITH RW RESIDUAL LIMB CARE . CRR TRANSFERS AND STRENGTHENING Physical Exam General appearance: alert, awake Psych: alert, normal affect, oriented x 3 HEENT: anicteric, sclera clear Neck: supple, no JVD Cardiovascular: S1/S2, no murmur Respiratory: aerating well, clear bilaterally Abdomen: bowel sounds present, non-distended, so ft, non-tender Skin: no rash, R BKA HEALING. 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 3, CNII-XII intact Results Findings/Data: Laboratory Tests 09/20 09/19 09/19 09/19 09/19 0458 1921 1544 1133 0501 Chemistry Sodium (134 - 147 mEq/L) 139 Potassium (3.4 - 5.0 mEq/L) 3.8 Chloride (100 - 108 mEq/L) 108 Carbon Dioxide (21 - 33 mEq/l) 22 Anion Gap (0 - 20) 13 BUN (7 - 18 mg/dL) 72 H Creatinine (0.6 - 1.3 mg/dL) 2.3 H Glomerular Filtr Rate (90 - 95) 32.1 L Glucose (70 - 110 mg/dL) 61 L POC Glucose (70 - 110 MG/DL) 277 H 236 H 224 H 96 Calcium (8.0 - 10.5 mg/dL) 7.5 L Phosphorus (2.5 - 4.9 MG/DL) 5.0 H Magnesium (1.80 - 2.40 mg/dL) 1.69 L 09/19 09/18 09/18 09/18 09/18 0448 2151 1933 1611 1102 Chemistry POC Glucose (70 - 110 MG/DL) 162 H 103 70 118 H 80 09/18 09/18 09/18 09/17 09/17 0906 0540 0505 1904 1554 Chemistry Sodium (134 - 147 mEq/L) 138 Potassium (3.4 - 5.0 mEq/L) 4.1 Chloride (100 - 108 mEq/L) 108 Carbon Dioxide (21 - 33 mEq/l) 21 Anion Gap (0 - 20) 13 BUN (7 - 18 mg/dL) 66 H Creatinine (0.6 - 1.3 mg/dL) 2.2 H Glomerular Filtr Rate (90 - 95) 33.9 L Glucose (70 - 110 mg/dL) 201 H POC Glucose (70 - 110 MG/DL) 171 H 203 H 160 H 75 Calcium (8.0 - 10.5 mg/dL) 7.5 L Phosphorus (2.5 - 4.9 MG/DL) 4.4 Magnesium (1.80 - 2.40 mg/dL) 1.83 09/17 09/17 1027 0951 Chemistry POC Glucose (70 - 110 MG/DL) 256 H 287 H Laboratory Tests 09/19 09/18 0501 0505 Hematology WBC (4.5 - 11.0 x10 3/uL) 13.3 H 10.6 RBC (4.00 - 5.60 x10 6/uL) 2.79 L 2.67 L Hgb (12.5 - 16.9 g/dL) 8.0 L 7.6 L Hct (37.5 - 50.7 %) 25.0 L 23.7 L MCV (81.0 - 99.0 fL) 89.6 88.8 MCH (27.0 - 33.0 pg) 28.7 28.5 MCHC (33.0 - 37.0 g/dL) 32.0 L 32.1 L RDW (11.5 - 14.5 %) 14.9 H 14.8 H Plt Count (150 - 400 x10 3/uL) 347 341 MPV (7.0 - 9.0 fL) 9.1 H 9.2 H Neut % (Auto) (56.0 - 77.0 %) 71.4 74.6 Lymph % (Auto) (14.0 - 32.0 %) 16.5 17.4 Boundary % (Auto) (4.8 - 9.0 %) 8.4 6.9 Eos % (Auto) (0.3 - 3.7 %) 2.4 0.1 L Baso % (Auto) (0.0 - 2.0 %) 0.2 0.1 Neut # (Auto) (2.0 - 7.6 x10 3/uL) 9.50 H 7.91 H Lymph # (Auto) (1.0 - 3.8 x10 3/uL) 2.19 1.85 Boundary # (Auto) (0.1 - 0.8 x10 3/uL) 1.11 H 0.73 Eos # (Auto) (0.0 - 0.2 x10 3/uL) 0.32 H 0.01 Baso # (Auto) (0.0 - 0.2 x10 3/uL) 0.02 0.01 Abs Immat Gran (auto) (0.00 - 0.03 x10 3/uL) 0. 14 H 0.10 H Add Manual Diff NO NO Immature Gran % (0.0 - 2.0 %) 1.1 0.9 Nucleated RBC % (0 - 0 %) 0.0 0.0 Nucleated RBCs # (Man) (0.0 - 0.1 x10 3/uL) 0.0 0 0.00 Diagnosis, Assessment Plan Free Text A P: Assessment: 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 Leroy Significant impairment in self-care, ADLs and fu nctional mobility Impaired mobility and gait Acute postoperative pain right BKA Diabetic polyneuropathy DKA, DM 2, poorly controlled, A1c greater than 1 4 PAD MRSA bacteremia/sepsis-treated on acute ERIKA Severe hyponatremia-resolved HTN Acute on chronic anemia requiring multiple trans fusions, possible GI bleed Left calf hematoma Edema and clinical arthritis left ankle Early decubitus to left heel/DTI dorsal left mid foot Prostatic abscess 08/26: S/p transrectal ultrasound aspiration of ab scess and transurethral resection of prostate and unroofing of abscess 09/12: Echo: EF 55-59%, grade 1 diastolic dysfunc tion 09/02: JIMENA negative for vegetation MRSA OF NARES 09/08:s/p EGD and colonoscopy. EGD showed mild ga stritis. Colonoscopy showed rectal polyp that was resect ed by snare (tubular adenoma)-repeat colonoscopy in 5 years Plan: -PLOF: Independent with transfers and gait -Amputee rehab program -Continue PT and OT -15/12 rehabilitation nursing care. -Case management for safe discharge planning. -Decubitus prevention -Early decubitus to left heel/DTI dorsal left mi dfoot-zinc oxide to the foot, foam, offloading, podiatry managing -DVT prophylaxis-SCD left leg -Strict fall and safety precautions -Work on bed mobility, transfer training, ADLs, pre-gait and gait exercises -Increase endurance and strength -Monitor pain with therapies -OOB to chair -Monitor p.o. intake and nut rition, albumin 1.3, prealbumin less than 5, dietary consultation, protein supplements to promote hea ling -Diabetes-A1c 14, tight glycemia control- endocr ine on board, insulin adjustments -Endocrinology, ID, podiatry, cardiology, IM con sulted -Pain management adjusting pain medications -Anemia, patient required multiple units of PRBC s on acute, FOBT positive -IV Protonix-consult GI-seri al H H-no evidence of gross bleeding-discussed with Dr. Trinidad -Constipation-abdominal qsdvgwdt-YPZ-lsxrir-CW S enokot and MiraLAX, DSP -MRSA OF NARES on Bactroban protocol -LLE edema-venous Doppler wi th complex heterogeneous hypoechoic fluid collection in the left calf region measuring 8.4, 2.8, 2.5 cm suggestive of hematoma. On low-dose Lasix. Oralia wrap LLE -LE edema could be related to hypoalbuminemia le ading to third spacing-edema improving -Generalized edema-some shor tness of breath and abdominal distention-cardiology gave a dose of IV Lasix-monitor urine output, da jaz weights-SOB resolved -09/05-venous Doppler of LLE-negative for DVT-Oralia wrap dressing and elevation -Anemia-hemoglobin 8.3, 7.7, 8.2, 7.6, 8 transfu sed 2 units of PRBC on 09/05 -09/08: s/p EGD and colonoscopy. EGD showed mild gastritis. Colonoscopy showed rectal polyp that was resected by snare. Anemia likely secondary to chronic kidney disease. Consult renal. -Pathology of polyp came back as tubular adenoma . recommend repeating colonoscopy in 5 years as per GI -Consider video capsule endoscopy as outpt if ev idence of dropping H/H -Renal ultrasound negative -09/19/2022 blood pressure better, sodium 139, potassium 3.8, CO2 22, BUN 72 up from 66, creatinine 2.3 up from 2.2, will hold o ff diuretics, urine output reported 2 L, magnesium 1.69 we will give magnesium sulfate 2 g IV x1, continue prednisone-as per renal -MRSA bacteremia and prostat ic abscess-WBC 13.3-monitor on Merrem and Daptomycin til 09/24 as per ID -Lasix as per nephrology -Completed Solu-Medrol -09/12: Echo-EF 55-60%, indet erminate diastolic function parameters as per cardio -BP continues to be elevated, Hydralazine increa sed to 75 mg TID, cont Metoprolol to 25 mg BID -BS better but likely to inc rease with re-initiation of steroids x3 days started by Nephrology for AIN -Endo adjusting insulin -Car transfer training 09/23 -Creatinine continues to improve-discussed with patient and about renal issues are improving -Advance therapies as tolerated-discusse d treatment plan with patient and -Right LKK-cwtpunz-urotuuvc resolved, dressings changed today-no bleeding after heparin discontinued, SCD to left leg -Patient continue to make progress. Emphasizing transfers with rolling walker and residual limb care. PM R Please see team note. Plan and goals discussed with the patient. I agree with the teams finding ELOS- [09/24] on IV antibiotics until 09/24 DC-Home with -Home health DME-bedside commode, sliding board, wheelchair, drop arm bedside commode Total time 33 minutes greater than 50% of the ti me spent examining patient, discussing with patient about BKA incisi on improving, no bleeding, improvement in renal function, on steroi ds, medical issues, anemia, amputee rehab, discharge plans, rehab plan of care, goals, therapies, pro dyan, labs, medications. EMR and MAR is reviewed. All questions answered Consultants: cardiology, endocrinology, hospital ist, infectious disease, podiatry Rehab attestation: Face to face exam completed. Treatment plan disc ussed with patient. Meets continued stay criteria. Agree with interdiscipl inary treatment plan. Electronically Signed by Guero Candelaria on 0 09/20/22 at 1340 [facility] #:[id number] END OF REPORT 2022-09-19 20:22:00-00:00 [facility] REPORT#:[id number] REPORT STATUS: Signed DATE:09/19/22 TIME: 2021 PATIENT: KARMA ROWLAND UNIT #: [id number] ROOM/BED: [place] [address] : 63 AGE: 56 SEX: M ATTEND: Fredy Vences MD ADM AUTHOR: Liam Pedersen DPM * ALL edits or amendments must be made on the [employer] document * Subjective Chief complaint: left heel ulcer. left ankle pain Patient reports: no confusion, no diarrhea, no f atigue, no heartburn Objective General VS: Last Documented: Result Date Time Pulse Ox 98 09/19 1918 B/P 157/43 09/19 1918 B/P Mean 81.1 09/19 1918 Temp 36.7 09/19 1918 Pulse 90 09/19 1918 Resp 16 09/19 1918 O2 Delivery Room air 09/19 152 O2 Flow Rate 2 09/08 1322 PATIENT WEIGHT: Weight (lb): 167 Weight (oz): 12.35 Weight (kg): 76.100 Medications: Active Meds + DC'd Last 24 Hrs Insulin Glargine (Semglee) 17 UNIT BEDTIME SUBQ Magnesium Sulfate (MAGNESIUM SULFATE 2GM/SWFI 50 ML) 50 ML ONCE ONE IV ( DC) Prednisone (predniSONE) 60 MG DAILY 0600 PO Daptomycin (CUBICIN 500MG) 500 MG Q24H IV Sodium Chloride (SODIUM CHLORIDE 0.9%) 50 ML Furosemide (LASIX 40 mg/4 mL INJECTION) 40 MG Q8 HR IV (DC) Hydralazine HCl (APRESOLINE) 75 MG Q8HR PO Insulin Human Lispro (HUMALOG) 10 UNIT AC SUBQ Insulin Glargine (Semglee) 20 UNIT BEDTIME SUBQ (DC) Meropenem (MEROPENEM) 500 MG Q8H IV Sterile Water (WATER FOR INJECTION) 10 ML Carvedilol (COREG) 25 MG C BK DIN PO Gabapentin (NEURONTIN) 100 MG Q8HR PO Oxycodone/Acetaminophen (PERCOCET 5/325MG TAB) 2 TAB Q4H PRN PRN PO Folic Acid (FOLIC ACID) 2 MG DAILY PO Multivitamins (TAB-A-MOHAN) 1 TAB DAILY PO Furosemide (LASIX 20MG INJ) 20 MG BLOOD-DOSE BET WEEN IV (CKD) Sodium Chloride (SODIUM CHLORIDE) 10 ML ASDIR IV Pantoprazole Sodium (PROTONIX) 40 MG Q12HR IV Polyethylene Glycol (MIRALAX) 17 GM DAILY PO Sennosides (Senna Lax 8.6 MG TABLET) 8.6 MG MADALYN Y PO Sodium Chloride (SODIUM CHLORIDE) 10 ML ASDIR NV N IV Amitriptyline HCl (ELAVIL) 25 MG BEDTIME PO Zinc Oxide (ZINC OXIDE 30 GM OINTMENT) 1 APPLIC DAILY TOPICAL Sterile Water (WATER FOR IRRIGATION) DRESSING CH GELACIO ASDIR PRN IRR Insulin Human Lispro (HUMALOG) 0 AC HS SUBQ Dextrose/Water (DEXTROSE 10% IN WATER) 125 ML DIR PRN IV (CKD) Dextrose/Water (DEXTROSE 10% IN WATER) 250 ML DIR PRN IV (CKD) Glucagon (GLUCAGON) 1 MG ASDIR PRN IM Lidocaine (LIDODERM) 1 PATCH DAILY TOPICAL Acetaminophen (TYLENOL) 650 MG Q6H PRN PRN PO Bisacodyl (DULCOLAX) 10 MG DAILY PRN PRN RECTAL Docusate Sodium (COLACE) 100 MG Q12H PRN PRN PO Hydralazine HCl (APRESOLINE) 10 MG Q6H PRN PRN I V Ondansetron HCl (ZOFRAN) 4 MG Q6H PRN PRN IV I O: 24 hour I O ending at 0700: 09/19 0700 09/18 1900 Intake Total 100 480 Output Total 1999 Balance 100 -1520 Intake, Oral 100 480 Number 2 Bowel Movements Number 0 Incontinent Voids Number Voids 0 Output, Urine 1999 Dietitian nutrition assessment The data set between the solid lines has been im ported from the dietitian's assessment. BMI Calculated: 27.1 Nutrition related diagnosis: Nutrition diagnosis details: Nutrition problem: Altered nutrition labs Nutrition etiology: DM Nutrition signs and symptoms: HYPER/HYPOGLYCEMIA , A1C >14 Nutrition prescription: CONTINUE RENAL DM DIET Dietitian name: You Palmer, DIET Assessment completed: 09/18/22 Physical Exam General appearance: alert, awake, oriented Wound/incision: Location: left foot Site condition: dp/pt 2/4 left. light touch dec reased left foot. ulcer starting at posterior left heel. eccymosis noted . early likely stage 1. left ankle has edema. pain with aggressive ROM left a nkle. dorsal left midfoot is starting to have tissue injury LE vascular pulse assess: 2+ L posterior tibialis, 2+ L dorsalis pedis Considered stroke alert: no Ulcer: Location: DTI dorsal left midfoot Results Findings/Data: Laboratory Tests: 09/19 09/19 09/19 09/19 09/19 1921 1544 1133 0501 0448 Chemistry Sodium (134 - 147 mEq/L) 139 Potassium (3.4 - 5.0 mEq/L) 3.8 Chloride (100 - 108 mEq/L) 108 Carbon Dioxide (21 - 33 mEq/l) 22 Anion Gap (0 - 20) 13 BUN (7 - 18 mg/dL) 72 H Creatinine (0.6 - 1.3 mg/dL) 2.3 H Glomerular Filtr Rate (90 - 95) 32.1 L Glucose (70 - 110 mg/dL) 61 L POC Glucose (70 - 110 MG/DL) 236 H 224 H 96 162 H Calcium (8.0 - 10.5 mg/dL) 7.5 L Phosphorus (2.5 - 4.9 MG/DL) 5.0 H Magnesium (1.80 - 2.40 mg/dL) 1.69 L Hematology WBC (4.5 - 11.0 x10 3/uL) 13.3 H RBC (4.00 - 5.60 x10 6/uL) 2.79 L Hgb (12.5 - 16.9 g/dL) 8.0 L Hct (37.5 - 50.7 %) 25.0 L MCV (81.0 - 99.0 fL) 89.6 MCH (27.0 - 33.0 pg) 28.7 MCHC (33.0 - 37.0 g/dL) 32.0 L RDW (11.5 - 14.5 %) 14.9 H Plt Count (150 - 400 x10 3/uL) 347 MPV (7.0 - 9.0 fL) 9.1 H Neut % (Auto) (56.0 - 77.0 %) 71.4 Lymph % (Auto) (14.0 - 32.0 %) 16.5 Boundary % (Auto) (4.8 - 9.0 %) 8.4 Eos % (Auto) (0.3 - 3.7 %) 2.4 Baso % (Auto) (0.0 - 2.0 %) 0.2 Neut # (Auto) (2.0 - 7.6 x10 3/uL) 9.50 H Lymph # (Auto) (1.0 - 3.8 x10 3/uL) 2.19 Boundary # (Auto) (0.1 - 0.8 x10 3/uL) 1.11 H Eos # (Auto) (0.0 - 0.2 x10 3/uL) 0.32 H Baso # (Auto) (0.0 - 0.2 x10 3/uL) 0.02 Abs Immat Gran (auto) (0.00 - 0.03 0.14 H x10 3/uL) Add Manual Diff NO Immature Gran % (0.0 - 2.0 %) 1.1 Nucleated RBC % (0 - 0 %) 0.0 Nucleated RBCs # (Man) (0.0 - 0.1 0.00 x10 3/uL) 09/18 2150 Chemistry POC Glucose (70 - 110 MG/DL) 103 Diagnosis, Assessment Plan Free Text A P: DM with neuropathy early decub ulcer left heel OA/edema left ankle early ulcer/DTI dorsal left midfoot zinc oxide to foot and heel foam to heel on IV abx on PO gabapentin offloading boot oralia wraps to ankle, only when OOB with therapy. zinc oxide interchange with bactroban to dorsal left foot Consultants: cardiology, endocrinology, hospital ist, infectious disease, podiatry Electronically Signed by Liam Pedersen DPM on 0 09/19/22 at 2022 RPT #:[id number] END OF REPORT 2022-09-19 15:29:00-00:[address] [facility] ([facility]) Pain Management Progress Note REPORT#:[id number] REPORT STATUS: Signed DATE:09/19/22 TIME: 152 PATIENT: KARMA ROWLAND UNIT #: [id number] ROOM/BED: [place] [address] : 63 AGE: 56 SEX: M ATTEND: Fredy Vences MD ADM AUTHOR: Ben Klein PA * ALL edits or amendments must be made on the [employer]/computer document * Ben Klein 09/19/22 1529: Subjective Chief complaint: Patient seen and examined. Chart/MAR reviewed. Patient slept well overnight. No acute concerns. Pain control is good. No aggravating neuropathy symptoms. Patient being seen for Acute postoperative pain, right foot and ankle gangrene, requiring BKA, Neuropathy, Constipatio n Patient is still requiring medications to help w ith managing current problems. No fever/chills, chest pain, orthopnea, nausea/v omiting, pruritus, or hallucinations. 14 point ROS undertaken unremarkable except as n oted Objective General VS/I O: Vital Signs Date Temp Pulse Resp B/P B/P Mean Pulse Ox FiO2 09/18-09/19 36.5-36.9 83-90 16-18 135-143/67-75 89.9-96.9 95-98 Last Documented: Result Date Time Pulse Ox 95 09/19 1528 B/P 143/74 09/19 1528 B/P Mean 96.9 09/19 1528 O2 Delivery Room air 09/19 1528 Temp 36.6 09/19 1528 Pulse 86 09/19 1528 Resp 18 09/19 1528 O2 Flow Rate 2 09/08 1322 24 hour I O ending at 0700: 09/19 0700 09/18 1900 Intake Total 100 480 Output Total 1999 Balance 100 -1520 Intake, Oral 100 480 Number 2 Bowel Movements Number 0 Incontinent Voids Number Voids 0 Output, Urine 1999 PATIENT WEIGHT: Weight (lb): 167 Weight (oz): 12.35 Weight (kg): 76.100 Medications: Active Meds + DC'd Last 24 Hrs Insulin Glargine (Semglee) 17 UNIT BEDTIME SUBQ Magnesium Sulfate (MAGNESIUM SULFATE 2GM/SWFI 50 ML) 50 ML ONCE ONE IV ( DC) Prednisone (predniSONE) 60 MG DAILY 0600 PO Daptomycin (CUBICIN 500MG) 500 MG Q24H IV Sodium Chloride (SODIUM CHLORIDE 0.9%) 50 ML Furosemide (LASIX 40 mg/4 mL INJECTION) 40 MG Q8 HR IV (DC) Hydralazine HCl (APRESOLINE) 75 MG Q8HR PO Insulin Human Lispro (HUMALOG) 10 UNIT AC SUBQ Insulin Glargine (Semglee) 20 UNIT BEDTIME SUBQ (DC) Meropenem (MEROPENEM) 500 MG Q8H IV Sterile Water (WATER FOR INJECTION) 10 ML Carvedilol (COREG) 25 MG C BK DIN PO Gabapentin (NEURONTIN) 100 MG Q8HR PO Oxycodone/Acetaminophen (PERCOCET 5/325MG TAB) 2 TAB Q4H PRN PRN PO Folic Acid (FOLIC ACID) 2 MG DAILY PO Multivitamins (TAB-A-MOHAN) 1 TAB DAILY PO Furosemide (LASIX 20MG INJ) 20 MG BLOOD-DOSE BET WEEN IV (CKD) Sodium Chloride (SODIUM CHLORIDE) 10 ML ASDIR IV Pantoprazole Sodium (PROTONIX) 40 MG Q12HR IV Polyethylene Glycol (MIRALAX) 17 GM DAILY PO Sennosides (Senna Lax 8.6 MG TABLET) 8.6 MG MADALYN Y PO Sodium Chloride (SODIUM CHLORIDE) 10 ML ASDIR NV N IV Amitriptyline HCl (ELAVIL) 25 MG BEDTIME PO Zinc Oxide (ZINC OXIDE 30 GM OINTMENT) 1 APPLIC DAILY TOPICAL Sterile Water (WATER FOR IRRIGATION) DRESSING CH GELACIO ASDIR PRN IRR Insulin Human Lispro (HUMALOG) 0 AC HS SUBQ Dextrose/Water (DEXTROSE 10% IN WATER) 125 ML DIR PRN IV (CKD) Dextrose/Water (DEXTROSE 10% IN WATER) 250 ML DIR PRN IV (CKD) Glucagon (GLUCAGON) 1 MG ASDIR PRN IM Lidocaine (LIDODERM) 1 PATCH DAILY TOPICAL Acetaminophen (TYLENOL) 650 MG Q6H PRN PRN PO Bisacodyl (DULCOLAX) 10 MG DAILY PRN PRN RECTAL Docusate Sodium (COLACE) 100 MG Q12H PRN PRN PO Hydralazine HCl (APRESOLINE) 10 MG Q6H PRN PRN I V Ondansetron HCl (ZOFRAN) 4 MG Q6H PRN PRN IV Physical Exam General appearance: alert, awake, oriented, no a cute distress Head/eyes: atraumatic, EOMI, normocephalic, norm al conjunctiva/sclera, PERRLA ENT: normal pharynx, moist mucosal membranes Neck: full range of motion, no lymphadenopathy, supple/no meningismus Cardiovascular: regular rate rhythm Respiratory: clear to auscultation, no distress Abdomen: soft, non-tender, no distention , active bowel sounds in all quarants. 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: 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, no sensory deficit s, CNII-XII grossly intact Considered stroke alert: no Skin: dry, intact, no rash Lymphatics: axilla normal Psychiatry: normal affect Results Findings/data: Laboratory Tests: 09/19 09/19 09/19 09/18 09/18 1133 0501 0448 2151 1933 Chemistry Sodium (134 - 147 mEq/L) 139 Potassium (3.4 - 5.0 mEq/L) 3.8 Chloride (100 - 108 mEq/L) 108 Carbon Dioxide (21 - 33 mEq/l) 22 Anion Gap (0 - 20) 13 BUN (7 - 18 mg/dL) 72 H Creatinine (0.6 - 1.3 mg/dL) 2.3 H Glomerular Filtr Rate (90 - 95) 32.1 L Glucose (70 - 110 mg/dL) 61 L POC Glucose (70 - 110 MG/DL) 96 162 H 103 70 Calcium (8.0 - 10.5 mg/dL) 7.5 L Phosphorus (2.5 - 4.9 MG/DL) 5.0 H Magnesium (1.80 - 2.40 mg/dL) 1.69 L Hematology WBC (4.5 - 11.0 x10 3/uL) 13.3 H RBC (4.00 - 5.60 x10 6/uL) 2.79 L Hgb (12.5 - 16.9 g/dL) 8.0 L Hct (37.5 - 50.7 %) 25.0 L MCV (81.0 - 99.0 fL) 89.6 MCH (27.0 - 33.0 pg) 28.7 MCHC (33.0 - 37.0 g/dL) 32.0 L RDW (11.5 - 14.5 %) 14.9 H Plt Count (150 - 400 x10 3/uL) 347 MPV (7.0 - 9.0 fL) 9.1 H Neut % (Auto) (56.0 - 77.0 %) 71.4 Lymph % (Auto) (14.0 - 32.0 %) 16.5 Boundary % (Auto) (4.8 - 9.0 %) 8.4 Eos % (Auto) (0.3 - 3.7 %) 2.4 Baso % (Auto) (0.0 - 2.0 %) 0.2 Neut # (Auto) (2.0 - 7.6 x10 3/uL) 9.50 H Lymph # (Auto) (1.0 - 3.8 x10 3/uL) 2.19 Boundary # (Auto) (0.1 - 0.8 x10 3/uL) 1.11 H Eos # (Auto) (0.0 - 0.2 x10 3/uL) 0.32 H Baso # (Auto) (0.0 - 0.2 x10 3/uL) 0.02 Abs Immat Gran (auto) (0.00 - 0.03 0.14 H x10 3/uL) Add Manual Diff NO Immature Gran % (0.0 - 2.0 %) 1.1 Nucleated RBC % (0 - 0 %) 0.0 Nucleated RBCs # (Man) (0.0 - 0.1 0.00 x10 3/uL) 09/18 1611 Chemistry POC Glucose (70 - 110 MG/DL) 118 H Diagnosis, Assessment Plan Free text A P: A/P: Patient is a 56 year old male who presents with: Past Medical History: Prostate abscess, right fo ot foot and ankle gangrene, diabetes, hypertension, hyperlipidemia Past Surgical History: TURP, right BKA Family History: Noncontributory Social History: Denies tobacco, alcohol, or drug use Allergies: NKDA Recent prostate abscess -Status post TURP with unroofing of abscess -IV antibiotics with vancomycin until 09-24-2022 Acute postoperative pain, right foot and ankle g angrene, requiring BKA -Patient is at risk for further amputations or l oss of limb due to comorbid conditions -Status post right BKA 08/28/2022 -DC Check 10/325 1 tablet p.o. every 4 hours as needed pain scale 4 10 -DC Dilaudid 0.5 mg IV daily as needed pain scale 7 10, second line therapy () -Tylenol 650 mg p.o. every 6 hours as needed ofelia n scale 1 3 -Percocet 10/325mg every 4 hours as needed, pain scale 4-10 (09/10) -Lidoderm patch to left ankle daily -IV antibiotics with vancomycin until 09-24-2022 -Local wound care -manageable Diabetic peripheral neuropathy -amitriptyline 25mg PO QHS -Gabapentin 100mg every 8 hours (09/10) -manageable Hypertension -We will monitor hypertension and tachycardia du e to pain, and hypotension as well as bradycardia secondary over sedation with narcotics -Hydralazine as needed Elevated LFTs -08/20/22-AST 51, ALT 22 -09/03/2022-AST 15, ALT 7 -Patient will require close monitoring since he is using narcotics with Tylenol Impaired functional mobility, balance, gait, and endurance -PT/OT Antalgic/Impaired gait -PT/OT -Improve strength, endurance, self-care, gait, b alance, ADLs -Fall precautions per unit protocol -Pain medications as outlined above Constipation -We will monitor while utilizing opioid narcotic medications. -Adequate fluid intake also discussed. -Colace 100 mg p.o. twice daily as needed -Dulcolax 10 mg rectally daily as needed -Senna lax 8.6mg daily -Miralax 17gm daily -manageable Disposition: percocet 10/325 mg q6h prn pain , gabapentin 100mg q8h sent to [facility]/ pharmacy #[id number] [address] [facility] [place], [place] [address] ([facility]) Phone: Patient has failed conservative medical therapy. Patient will require monitoring while utilize na rcotic medications for any adverse effects, and will adjust as needed Plan of care discussed with patient and nurse All diagnostics of last 24 hours been reviewed. Risks versus benefits of opioid medications were reviewed to include, but not limited to respiratory depression, accid ental overdose, altered mental status, sudden , constipation which could result in bowel obstruction, seizures, withdrawal, dependency addiction, risk for falls . Case discussed with Dr Ng whom agrees. Thank you for the consultation. [place] [facility] NURSE: -database searched, no information found Kingsley Ng 10/07/22 1701: Attestations Physician Attestation Agree w/findings plan: The patient was seen and exa mined by Ben Klein. I personally developed the care plan, which was continued by the mid-level provider. I was immediately available. at 1530 Electronically Signed by Kingsley Ng MD on 3 at 1708 RPT #:[id number] END OF REPORT 2022-09-19 14:59:00-00:00 [facility]) Endocrinology Progress Note REPORT#:[id number] REPORT STATUS: Signed DATE:09/19/22 TIME: 1459 PATIENT: KARMA ROWLAND UNIT #: [id number] ROOM/BED: [place] [address] : 63 AGE: 56 SEX: M ATTEND: Fredy Vences MD ADM AUTHOR: Braxton Chapin MD * ALL edits or amendments must be made on the el [employer]/computer document * Subjective Patient reports: no complaints Objective General VS: Last Documented: Result Date Time Pulse Ox 98 09/19 0655 B/P 138/68 09/19 654 B/P Mean 91.6 09/19 0655 O2 Delivery Room air 09/19 06 Temp 36.9 09/19 06 Pulse 90 09/19 0655 Resp 17 09/19 0655 O2 Flow Rate 2 09/08 1322 PATIENT WEIGHT: Weight (lb): 167 Weight (oz): 12.35 Weight (kg): 76.100 Medications: Active Meds + DC'd Last 24 Hrs Magnesium Sulfate (MAGNESIUM SULFATE 2GM/SWFI 50 ML) 50 ML ONCE ONE IV ( DC) Prednisone (predniSONE) 60 MG DAILY 0600 PO Daptomycin (CUBICIN 500MG) 500 MG Q24H IV Sodium Chloride (SODIUM CHLORIDE 0.9%) 50 ML Furosemide (LASIX 40 mg/4 mL INJECTION) 40 MG Q8 HR IV (DC) Hydralazine HCl (APRESOLINE) 75 MG Q8HR PO Insulin Human Lispro (HUMALOG) 10 UNIT AC SUBQ Insulin Glargine (Semglee) 20 UNIT BEDTIME SUBQ Meropenem (MEROPENEM) 500 MG Q8H IV Sterile Water (WATER FOR INJECTION) 10 ML Carvedilol (COREG) 25 MG C BK DIN PO Gabapentin (NEURONTIN) 100 MG Q8HR PO Oxycodone/Acetaminophen (PERCOCET 5/325MG TAB) 2 TAB Q4H PRN PRN PO Folic Acid (FOLIC ACID) 2 MG DAILY PO Multivitamins (TAB-A-MOHAN) 1 TAB DAILY PO Furosemide (LASIX 20MG INJ) 20 MG BLOOD-DOSE BET WEEN IV (CKD) Sodium Chloride (SODIUM CHLORIDE) 10 ML ASDIR IV Pantoprazole Sodium (PROTONIX) 40 MG Q12HR IV Polyethylene Glycol (MIRALAX) 17 GM DAILY PO Sennosides (Senna Lax 8.6 MG TABLET) 8.6 MG MADALYN Y PO Sodium Chloride (SODIUM CHLORIDE) 10 ML ASDIR NV N IV Amitriptyline HCl (ELAVIL) 25 MG BEDTIME PO Zinc Oxide (ZINC OXIDE 30 GM OINTMENT) 1 APPLIC DAILY TOPICAL Sterile Water (WATER FOR IRRIGATION) DRESSING CH GELACIO ASDIR PRN IRR Insulin Human Lispro (HUMALOG) 0 AC HS SUBQ Dextrose/Water (DEXTROSE 10% IN WATER) 125 ML A SDIR PRN IV (CKD) Dextrose/Water (DEXTROSE 10% IN WATER) 250 ML DIR PRN IV (CKD) Glucagon (GLUCAGON) 1 MG ASDIR PRN IM Lidocaine (LIDODERM) 1 PATCH DAILY TOPICAL Acetaminophen (TYLENOL) 650 MG Q6H PRN PRN PO Bisacodyl (DULCOLAX) 10 MG DAILY PRN PRN RECTAL Docusate Sodium (COLACE) 100 MG Q12H PRN PRN PO Hydralazine HCl (APRESOLINE) 10 MG Q6H PRN PRN I V Ondansetron HCl (ZOFRAN) 4 MG Q6H PRN PRN IV Physical Exam General appearance: alert, awake Diagnosis, Assessment Plan Hospital course to date: Laboratory Tests: 09/19 09/19 09/19 09/18 09/18 1133 0501 0448 2151 1933 Chemistry Sodium (134 - 147 mEq/L) 139 Potassium (3.4 - 5.0 mEq/L) 3.8 Chloride (100 - 108 mEq/L) 108 Carbon Dioxide (21 - 33 mEq/l) 22 Anion Gap (0 - 20) 13 BUN (7 - 18 mg/dL) 72 H Creatinine (0.6 - 1.3 mg/dL) 2.3 H Glomerular Filtr Rate (90 - 95) 32.1 L Glucose (70 - 110 mg/dL) 61 L POC Glucose (70 - 110 MG/DL) 96 162 H 103 70 Calcium (8.0 - 10.5 mg/dL) 7.5 L Phosphorus (2.5 - 4.9 MG/DL) 5.0 H Magnesium (1.80 - 2.40 mg/dL) 1.69 L Hematology WBC (4.5 - 11.0 x10 3/uL) 13.3 H RBC (4.00 - 5.60 x10 6/uL) 2.79 L Hgb (12.5 - 16.9 g/dL) 8.0 L Hct (37.5 - 50.7 %) 25.0 L MCV (81.0 - 99.0 fL) 89.6 MCH (27.0 - 33.0 pg) 28.7 MCHC (33.0 - 37.0 g/dL) 32.0 L RDW (11.5 - 14.5 %) 14.9 H Plt Count (150 - 400 x10 3/uL) 347 MPV (7.0 - 9.0 fL) 9.1 H Neut % (Auto) (56.0 - 77.0 %) 71.4 Lymph % (Auto) (14.0 - 32.0 %) 16.5 Boundary % (Auto) (4.8 - 9.0 %) 8.4 Eos % (Auto) (0.3 - 3.7 %) 2.4 Baso % (Auto) (0.0 - 2.0 %) 0.2 Neut # (Auto) (2.0 - 7.6 x10 3/uL) 9.50 H Lymph # (Auto) (1.0 - 3.8 x10 3/uL) 2.19 Boundary # (Auto) (0.1 - 0.8 x10 3/uL) 1.11 H Eos # (Auto) (0.0 - 0.2 x10 3/uL) 0.32 H Baso # (Auto) (0.0 - 0.2 x10 3/uL) 0.02 Abs Immat Gran (auto) (0.00 - 0.03 0.14 H x10 3/uL) Add Manual Diff NO Immature Gran % (0.0 - 2.0 %) 1.1 Nucleated RBC % (0 - 0 %) 0.0 Nucleated RBCs # (Man) (0.0 - 0.1 0.00 x10 3/uL) 09/18 1611 Chemistry POC Glucose (70 - 110 MG/DL) 118 H Laboratory Tests: 09/18 09/18 09/18 09/18 1611 1102 0906 0540 Chemistry POC Glucose (70 - 110 MG/DL) 118 H 80 171 H 203 H 09/18 09/17 0505 1904 Chemistry Sodium (134 - 147 mEq/L) 138 Potassium (3.4 - 5.0 mEq/L) 4.1 Chloride (100 - 108 mEq/L) 108 Carbon Dioxide (21 - 33 mEq/l) 21 Anion Gap (0 - 20) 13 BUN (7 - 18 mg/dL) 66 H Creatinine (0.6 - 1.3 mg/dL) 2.2 H Glomerular Filtr Rate (90 - 95) 33.9 L Glucose (70 - 110 mg/dL) 201 H POC Glucose (70 - 110 MG/DL) 160 H Calcium (8.0 - 10.5 mg/dL) 7.5 L Phosphorus (2.5 - 4.9 MG/DL) 4.4 Magnesium (1.80 - 2.40 mg/dL) 1.83 Hematology WBC (4.5 - 11.0 x10 3/uL) 10.6 RBC (4.00 - 5.60 x10 6/uL) 2.67 L Hgb (12.5 - 16.9 g/dL) 7.6 L Hct (37.5 - 50.7 %) 23.7 L MCV (81.0 - 99.0 fL) 88.8 MCH (27.0 - 33.0 pg) 28.5 MCHC (33.0 - 37.0 g/dL) 32.1 L RDW (11.5 - 14.5 %) 14.8 H Plt Count (150 - 400 x10 3/uL) 341 MPV (7.0 - 9.0 fL) 9.2 H Neut % (Auto) (56.0 - 77.0 %) 74.6 Lymph % (Auto) (14.0 - 32.0 %) 17.4 Boundary % (Auto) (4.8 - 9.0 %) 6.9 Eos % (Auto) (0.3 - 3.7 %) 0.1 L Baso % (Auto) (0.0 - 2.0 %) 0.1 Neut # (Auto) (2.0 - 7.6 x10 3/uL) 7.91 H Lymph # (Auto) (1.0 - 3.8 x10 3/uL) 1.85 Boundary # (Auto) (0.1 - 0.8 x10 3/uL) 0.73 Eos # (Auto) (0.0 - 0.2 x10 3/uL) 0.01 Baso # (Auto) (0.0 - 0.2 x10 3/uL) 0.01 Abs Immat Gran (auto) (0.00 - 0.03 x10 3/uL) 0. 10 H Add Manual Diff NO Immature Gran % (0.0 - 2.0 %) 0.9 Nucleated RBC % (0 - 0 %) 0.0 Nucleated RBCs # (Man) (0.0 - 0.1 x10 3/uL) 0.0 0 Laboratory Tests: 09/17 09/17 09/17 09/17 09/17 [id number] 0451 Chemistry POC Glucose (70 - 110 MG/DL) 75 256 H 287 H 286 H 273 H 09/17 09/16 09/16 0450 2345 1931 Chemistry Sodium (134 - 147 mEq/L) 136 Potassium (3.4 - 5.0 mEq/L) 4.5 Chloride (100 - 108 mEq/L) 107 Carbon Dioxide (21 - 33 mEq/l) 21 Anion Gap (0 - 20) 12 BUN (7 - 18 mg/dL) 66 H Creatinine (0.6 - 1.3 mg/dL) 2.4 H Glomerular Filtr Rate (90 - 95) 30.5 L Glucose (70 - 110 mg/dL) 285 H POC Glucose (70 - 110 MG/DL) 291 H 219 H Calcium (8.0 - 10.5 mg/dL) 7.4 L Phosphorus (2.5 - 4.9 MG/DL) 4.5 Magnesium (1.80 - 2.40 mg/dL) 1.97 Hematology WBC (4.5 - 11.0 x10 3/uL) 8.9 RBC (4.00 - 5.60 x10 6/uL) 2.83 L Hgb (12.5 - 16.9 g/dL) 8.1 L Hct (37.5 - 50.7 %) 24.9 L MCV (81.0 - 99.0 fL) 88.0 MCH (27.0 - 33.0 pg) 28.6 MCHC (33.0 - 37.0 g/dL) 32.5 L RDW (11.5 - 14.5 %) 14.6 H Plt Count (150 - 400 x10 3/uL) 374 MPV (7.0 - 9.0 fL) 9.6 H Neut % (Auto) (56.0 - 77.0 %) 85.2 H Lymph % (Auto) (14.0 - 32.0 %) 10.2 L Boundary % (Auto) (4.8 - 9.0 %) 2.9 L Eos % (Auto) (0.3 - 3.7 %) 0.0 L Baso % (Auto) (0.0 - 2.0 %) 0.1 Neut # (Auto) (2.0 - 7.6 x10 3/uL) 7.58 Lymph # (Auto) (1.0 - 3.8 x10 3/uL) 0.91 L Boundary # (Auto) (0.1 - 0.8 x10 3/uL) 0.26 Eos # (Auto) (0.0 - 0.2 x10 3/uL) 0.00 Baso # (Auto) (0.0 - 0.2 x10 3/uL) 0.01 Abs Immat Gran (auto) (0.00 - 0.03 x10 3/uL) 0. 14 H Add Manual Diff NO Immature Gran % (0.0 - 2.0 %) 1.6 Nucleated RBC % (0 - 0 %) 0.0 Nucleated RBCs # (Man) (0.0 - 0.1 x10 3/uL) 0.0 0 Laboratory Tests: 09/16 09/16 09/16 09/16 1549 1441 1110 0553 Chemistry POC Glucose (70 - 110 MG/DL) 62 L 60 L 148 H 19 5 H 09/16 09/15 0455 1937 Chemistry Sodium (134 - 147 mEq/L) 135 Potassium (3.4 - 5.0 mEq/L) 4.5 Chloride (100 - 108 mEq/L) 108 Carbon Dioxide (21 - 33 mEq/l) 20 L Anion Gap (0 - 20) 11 BUN (7 - 18 mg/dL) 60 H Creatinine (0.6 - 1.3 mg/dL) 2.7 H Glomerular Filtr Rate (90 - 95) 26.5 L Glucose (70 - 110 mg/dL) 175 H POC Glucose (70 - 110 MG/DL) 124 H Calcium (8.0 - 10.5 mg/dL) 7.5 L Phosphorus (2.5 - 4.9 MG/DL) 4.6 Magnesium (1.80 - 2.40 mg/dL) 1.93 Hematology WBC (4.5 - 11.0 x10 3/uL) 9.5 RBC (4.00 - 5.60 x10 6/uL) 2.70 L Hgb (12.5 - 16.9 g/dL) 7.6 L Hct (37.5 - 50.7 %) 23.7 L MCV (81.0 - 99.0 fL) 87.8 MCH (27.0 - 33.0 pg) 28.1 MCHC (33.0 - 37.0 g/dL) 32.1 L RDW (11.5 - 14.5 %) 14.6 H Plt Count (150 - 400 x10 3/uL) 360 MPV (7.0 - 9.0 fL) 9.6 H Neut % (Auto) (56.0 - 77.0 %) 73.4 Lymph % (Auto) (14.0 - 32.0 %) 18.6 Boundary % (Auto) (4.8 - 9.0 %) 6.7 Eos % (Auto) (0.3 - 3.7 %) 0.2 L Baso % (Auto) (0.0 - 2.0 %) 0.1 Neut # (Auto) (2.0 - 7.6 x10 3/uL) 6.99 Lymph # (Auto) (1.0 - 3.8 x10 3/uL) 1.77 Boundary # (Auto) (0.1 - 0.8 x10 3/uL) 0.64 Eos # (Auto) (0.0 - 0.2 x10 3/uL) 0.02 Baso # (Auto) (0.0 - 0.2 x10 3/uL) 0.01 Abs Immat Gran (auto) (0.00 - 0.03 x10 3/uL) 0. 10 H Add Manual Diff NO Immature Gran % (0.0 - 2.0 %) 1.0 Nucleated RBC % (0 - 0 %) 0.0 Nucleated RBCs # (Man) (0.0 - 0.1 x10 3/uL) 0.0 0 Laboratory Tests: 09/15 09/15 09/15 09/15 1640 1304 1154 0558 Chemistry POC Glucose (70 - 110 MG/DL) 137 H 126 H 309 H Urines Urine Color (YEL/STRAW) YELLOW Urine Appearance (CLEAR) SL CLOUDY Urine pH (5.0 - 7.0) 5.0 Ur Specific [place] (1.005 - 1.030) 1.013 Urine Protein (NEGATIVE) 2+ H Urine Glucose (UA) (NEGATIVE) 2+ H Urine Ketones (NEGATIVE) NEGATIVE Urine Blood (NEGATIVE) 2+ H Urine Nitrite (NEGATIVE) NEGATIVE Urine Bilirubin (NEGATIVE) NEGATIVE Urine Urobilinogen (0.2 - 1.0 mg/dL) 0.2 Ur Leukocyte Esterase (NEGATIVE) TRACE H Urine RBC (0 - 3 RBC/HPF) 21-50 Urine WBC (0 - 3 WBC/HPF) 4-9 H Ur Squamous Epith Cells (NONE SEEN /HPF) 0-5 Ur Transition Epith Cell (NONE SEEN /HPF) TRACE Urine Bacteria (NONE SEEN /HPF) TRACE Granular Casts (NONE /LPF) 3-5 Urine Mucus (NONE SEEN /LPF) TRACE Ur Random Creatinine (mg/dL) 52.5 U Random Total Protein (mg/dL) 283 09/15 09/14 0515 1931 Chemistry Sodium (134 - 147 mEq/L) 132 L Potassium (3.4 - 5.0 mEq/L) 4.7 Chloride (100 - 108 mEq/L) 105 Carbon Dioxide (21 - 33 mEq/l) 17 L Anion Gap (0 - 20) 15 BUN (7 - 18 mg/dL) 38 H Creatinine (0.6 - 1.3 mg/dL) 2.9 H Glomerular Filtr Rate (90 - 95) 24.3 L Glucose (70 - 110 mg/dL) 312 H POC Glucose (70 - 110 MG/DL) 193 H Calcium (8.0 - 10.5 mg/dL) 7.2 L Phosphorus (2.5 - 4.9 MG/DL) 5.7 H Magnesium (1.80 - 2.40 mg/dL) 1.96 Total Creatine Kinase (46 - 171 Units/L) 26 L Albumin (3.4 - 5.0 g/dL) 1.50 L Prealbumin (16.0 - 40.0 mg/dL) 8.0 L Hematology WBC (4.5 - 11.0 x10 3/uL) 8.7 RBC (4.00 - 5.60 x10 6/uL) 2.88 L Hgb (12.5 - 16.9 g/dL) 8.2 L Hct (37.5 - 50.7 %) 26.5 L MCV (81.0 - 99.0 fL) 92.0 MCH (27.0 - 33.0 pg) 28.5 MCHC (33.0 - 37.0 g/dL) 30.9 L RDW (11.5 - 14.5 %) 14.3 Plt Count (150 - 400 x10 3/uL) 341 MPV (7.0 - 9.0 fL) 9.1 H Neut % (Auto) (56.0 - 77.0 %) 84.9 H Lymph % (Auto) (14.0 - 32.0 %) 11.3 L Boundary % (Auto) (4.8 - 9.0 %) 3.2 L Eos % (Auto) (0.3 - 3.7 %) 0.0 L Baso % (Auto) (0.0 - 2.0 %) 0.1 Neut # (Auto) (2.0 - 7.6 x10 3/uL) 7.35 Lymph # (Auto) (1.0 - 3.8 x10 3/uL) 0.98 L Boundary # (Auto) (0.1 - 0.8 x10 3/uL) 0.28 Eos # (Auto) (0.0 - 0.2 x10 3/uL) 0.00 Baso # (Auto) (0.0 - 0.2 x10 3/uL) 0.01 Abs Immat Gran (auto) (0.00 - 0.03 x10 3/uL) 0. 04 H Add Manual Diff NO Immature Gran % (0.0 - 2.0 %) 0.5 Nucleated RBC % (0 - 0 %) 0.0 Nucleated RBCs # (Man) (0.0 - 0.1 x10 3/uL) 0.0 0 Microbiology: Date/Time Procedure - Status Source Growth 09/15 514 MRSA DNA Surveillance Screen - COMP NASAL Laboratory Tests: 09/14 09/14 09/14 09/14 09/13 1130 0736 0526 0587 1937 Chemistry Sodium (134 - 147 mEq/L) 132 L Potassium (3.4 - 5.0 mEq/L) 4.4 Chloride (100 - 108 mEq/L) 104 Carbon Dioxide (21 - 33 mEq/l) 19 L Anion Gap (0 - 20) 14 BUN (7 - 18 mg/dL) 38 H Creatinine (0.6 - 1.3 mg/dL) 2.8 H Glomerular Filtr Rate (90 - 95) 25.4 L Glucose (70 - 110 mg/dL) 325 H POC Glucose (70 - 110 MG/DL) 137 H 290 H 334 H 248 H Calcium (8.0 - 10.5 mg/dL) 7.5 L Hematology WBC (4.5 - 11.0 x10 3/uL) 9.5 RBC (4.00 - 5.60 x10 6/uL) 2.83 L Hgb (12.5 - 16.9 g/dL) 8.0 L Hct (37.5 - 50.7 %) 25.3 L MCV (81.0 - 99.0 fL) 89.4 MCH (27.0 - 33.0 pg) 28.3 MCHC (33.0 - 37.0 g/dL) 31.6 L RDW (11.5 - 14.5 %) 14.0 Plt Count (150 - 400 x10 3/uL) 322 MPV (7.0 - 9.0 fL) 9.3 H Neut % (Auto) (56.0 - 77.0 %) 80.2 H Lymph % (Auto) (14.0 - 32.0 %) 13.9 L Boundary % (Auto) (4.8 - 9.0 %) 5.1 Eos % (Auto) (0.3 - 3.7 %) 0.0 L Baso % (Auto) (0.0 - 2.0 %) 0.1 Neut # (Auto) (2.0 - 7.6 x10 3/uL) 7.58 Lymph # (Auto) (1.0 - 3.8 x10 3/uL) 1.31 Boundary # (Auto) (0.1 - 0.8 x10 3/uL) 0.48 Eos # (Auto) (0.0 - 0.2 x10 3/uL) 0.00 Baso # (Auto) (0.0 - 0.2 x10 3/uL) 0.01 Abs Immat Gran (auto) (0.00 - 0.03 0.07 H x10 3/uL) Add Manual Diff NO Immature Gran % (0.0 - 2.0 %) 0.7 Nucleated RBC % (0 - 0 %) 0.0 Nucleated RBCs # (Man) (0.0 - 0.1 0.00 x10 3/uL) 09/13 1629 Chemistry POC Glucose (70 - 110 MG/DL) 130 H Laboratory Tests: 09/13 09/13 09/13 09/12 4439 0133 8286 2016 Chemistry Sodium (134 - 147 mEq/L) 133 L Potassium (3.4 - 5.0 mEq/L) 4.6 Chloride (100 - 108 mEq/L) 107 Carbon Dioxide (21 - 33 mEq/l) 19 L Anion Gap (0 - 20) 12 BUN (7 - 18 mg/dL) 28 H Creatinine (0.6 - 1.3 mg/dL) 2.7 H Glomerular Filtr Rate (90 - 95) 26.5 L Glucose (70 - 110 mg/dL) 241 H POC Glucose (70 - 110 MG/DL) 307 H 258 H 223 H Calcium (8.0 - 10.5 mg/dL) 7.8 L Phosphorus (2.5 - 4.9 MG/DL) 4.7 Magnesium (1.80 - 2.40 mg/dL) 1.92 Hematology WBC (4.5 - 11.0 x10 3/uL) 9.8 RBC (4.00 - 5.60 x10 6/uL) 2.90 L Hgb (12.5 - 16.9 g/dL) 8.2 L Hct (37.5 - 50.7 %) 25.4 L MCV (81.0 - 99.0 fL) 87.6 MCH (27.0 - 33.0 pg) 28.3 MCHC (33.0 - 37.0 g/dL) 32.3 L RDW (11.5 - 14.5 %) 13.7 Plt Count (150 - 400 x10 3/uL) 288 MPV (7.0 - 9.0 fL) 10.0 H Neut % (Auto) (56.0 - 77.0 %) 85.3 H Lymph % (Auto) (14.0 - 32.0 %) 10.4 L Boundary % (Auto) (4.8 - 9.0 %) 3.5 L Eos % (Auto) (0.3 - 3.7 %) 0.0 L Baso % (Auto) (0.0 - 2.0 %) 0.1 Neut # (Auto) (2.0 - 7.6 x10 3/uL) 8.34 H Lymph # (Auto) (1.0 - 3.8 x10 3/uL) 1.02 Boundary # (Auto) (0.1 - 0.8 x10 3/uL) 0.34 Eos # (Auto) (0.0 - 0.2 x10 3/uL) 0.00 Baso # (Auto) (0.0 - 0.2 x10 3/uL) 0.01 Abs Immat Gran (auto) (0.00 - 0.03 x10 3/uL) 0. 07 H Add Manual Diff NO Immature Gran % (0.0 - 2.0 %) 0.7 Nucleated RBC % (0 - 0 %) 0.0 Nucleated RBCs # (Man) (0.0 - 0.1 x10 3/uL) 0.0 0 Microbiology: Date/Time Procedure - Status Source Growth 09/13 0455 MRSA DNA Surveillance Screen - RECD NASAL Laboratory Tests: 09/12 09/12 09/12 09/12 1606 1115 1105 0604 Chemistry POC Glucose (70 - 110 MG/DL) 150 H 68 L 170 H B-Natriuretic Peptide (0 - 100 PG/ML) 297.0 H Hematology Eos Smear Total Cells NONE SEEN 09/12 09/11 09/11 0420 2130 1933 Chemistry Sodium (134 - 147 mEq/L) 134 Potassium (3.4 - 5.0 mEq/L) 4.2 Chloride (100 - 108 mEq/L) 106 Carbon Dioxide (21 - 33 mEq/l) 20 L Anion Gap (0 - 20) 12 BUN (7 - 18 mg/dL) 31 H Creatinine (0.6 - 1.3 mg/dL) 2.4 H Glomerular Filtr Rate (90 - 95) 30.5 L Glucose (70 - 110 mg/dL) 167 H POC Glucose (70 - 110 MG/DL) 150 H Calcium (8.0 - 10.5 mg/dL) 8.2 Phosphorus (2.5 - 4.9 MG/DL) 4.4 Magnesium (1.80 - 2.40 mg/dL) 1.86 Hematology WBC (4.5 - 11.0 x10 3/uL) 8.8 RBC (4.00 - 5.60 x10 6/uL) 2.73 L Hgb (12.5 - 16.9 g/dL) 7.7 L Hct (37.5 - 50.7 %) 23.7 L MCV (81.0 - 99.0 fL) 86.8 MCH (27.0 - 33.0 pg) 28.2 MCHC (33.0 - 37.0 g/dL) 32.5 L RDW (11.5 - 14.5 %) 13.8 Plt Count (150 - 400 x10 3/uL) 248 MPV (7.0 - 9.0 fL) 9.7 H Neut % (Auto) (56.0 - 77.0 %) 72.3 Lymph % (Auto) (14.0 - 32.0 %) 15.0 Boundary % (Auto) (4.8 - 9.0 %) 7.9 Eos % (Auto) (0.3 - 3.7 %) 3.8 H Baso % (Auto) (0.0 - 2.0 %) 0.3 Neut # (Auto) (2.0 - 7.6 x10 3/uL) 6.34 Lymph # (Auto) (1.0 - 3.8 x10 3/uL) 1.31 Boundary # (Auto) (0.1 - 0.8 x10 3/uL) 0.69 Eos # (Auto) (0.0 - 0.2 x10 3/uL) 0.33 H Baso # (Auto) (0.0 - 0.2 x10 3/uL) 0.03 Abs Immat Gran (auto) (0.00 - 0.03 x10 3/uL) 0. 06 H Add Manual Diff NO Immature Gran % (0.0 - 2.0 %) 0.7 Nucleated RBC % (0 - 0 %) 0.0 Nucleated RBCs # (Man) (0.0 - 0.1 x10 3/uL) 0.0 0 Toxicology Random Vancomycin (mcg/mL) 16.7 Laboratory Tests: 09/11 09/11 09/11 09/11 09/11 1532 1445 1114 0541 0445 Chemistry Sodium (134 - 147 mEq/L) 134 Potassium (3.4 - 5.0 mEq/L) 4.3 Chloride (100 - 108 mEq/L) 105 Carbon Dioxide (21 - 33 mEq/l) 22 Anion Gap (0 - 20) 12 BUN (7 - 18 mg/dL) 26 H Creatinine (0.6 - 1.3 mg/dL) 2.0 H Glomerular Filtr Rate (90 - 95) 38.0 L Glucose (70 - 110 mg/dL) 109 POC Glucose (70 - 110 MG/DL) 93 109 127 H Calcium (8.0 - 10.5 mg/dL) 8.3 Phosphorus (2.5 - 4.9 MG/DL) 4.7 Magnesium (1.80 - 2.40 mg/dL) 1.90 Hematology WBC (4.5 - 11.0 x10 3/uL) 7.9 RBC (4.00 - 5.60 x10 6/uL) 2.94 L Hgb (12.5 - 16.9 g/dL) 8.3 L Hct (37.5 - 50.7 %) 25.8 L MCV (81.0 - 99.0 fL) 87.8 MCH (27.0 - 33.0 pg) 28.2 MCHC (33.0 - 37.0 g/dL) 32.2 L RDW (11.5 - 14.5 %) 13.7 Plt Count (150 - 400 x10 3/uL) 269 MPV (7.0 - 9.0 fL) 9.8 H Neut % (Auto) (56.0 - 77.0 %) 67.9 Lymph % (Auto) (14.0 - 32.0 %) 16.1 Boundary % (Auto) (4.8 - 9.0 %) 9.1 H Eos % (Auto) (0.3 - 3.7 %) 5.6 H Baso % (Auto) (0.0 - 2.0 %) 0.5 Neut # (Auto) (2.0 - 7.6 x10 3/uL) 5.35 Lymph # (Auto) (1.0 - 3.8 x10 3/uL) 1.27 Boundary # (Auto) (0.1 - 0.8 x10 3/uL) 0.72 Eos # (Auto) (0.0 - 0.2 x10 3/uL) 0.44 H Baso # (Auto) (0.0 - 0.2 x10 3/uL) 0.04 Abs Immat Gran (auto) (0.00 - 0.03 0.06 H x10 3/uL) Add Manual Diff NO Immature Gran % (0.0 - 2.0 %) 0.8 Nucleated RBC % (0 - 0 %) 0.0 Nucleated RBCs # (Man) (0.0 - 0.1 0.00 x10 3/uL) Toxicology Random Vancomycin (mcg/mL) 18.3 09/10 1851 Chemistry POC Glucose (70 - 110 MG/DL) 97 Laboratory Tests: 09/10 09/10 09/10 09/10 09/10 1715 1625 1430 1007 0545 Chemistry Sodium (134 - 147 mEq/L) 135 Potassium (3.4 - 5.0 mEq/L) 4.2 Chloride (100 - 108 mEq/L) 107 Carbon Dioxide (21 - 33 mEq/l) 21 Anion Gap (0 - 20) 11 BUN (7 - 18 mg/dL) 25 H Creatinine (0.6 - 1.3 mg/dL) 1.9 H Glomerular Filtr Rate (90 - 95) 40.4 L Glucose (70 - 110 mg/dL) 156 H POC Glucose (70 - 110 MG/DL) 75 58 L 213 H Calcium (8.0 - 10.5 mg/dL) 8.3 Phosphorus (2.5 - 4.9 MG/DL) 4.6 Magnesium (1.80 - 2.40 mg/dL) 1.89 Hematology WBC (4.5 - 11.0 x10 3/uL) 8.6 RBC (4.00 - 5.60 x10 6/uL) 3.08 L Hgb (12.5 - 16.9 g/dL) 8.6 L Hct (37.5 - 50.7 %) 26.7 L MCV (81.0 - 99.0 fL) 86.7 MCH (27.0 - 33.0 pg) 27.9 MCHC (33.0 - 37.0 g/dL) 32.2 L RDW (11.5 - 14.5 %) 13.8 Plt Count (150 - 400 x10 3/uL) 265 MPV (7.0 - 9.0 fL) 9.6 H Neut % (Auto) (56.0 - 77.0 %) 69.4 Lymph % (Auto) (14.0 - 32.0 %) 15.5 Boundary % (Auto) (4.8 - 9.0 %) 8.5 Eos % (Auto) (0.3 - 3.7 %) 5.5 H Baso % (Auto) (0.0 - 2.0 %) 0.4 Neut # (Auto) (2.0 - 7.6 x10 3/uL) 5.94 Lymph # (Auto) (1.0 - 3.8 x10 3/uL) 1.33 Boundary # (Auto) (0.1 - 0.8 x10 3/uL) 0.73 Eos # (Auto) (0.0 - 0.2 x10 3/uL) 0.47 H Baso # (Auto) (0.0 - 0.2 x10 3/uL) 0.03 Abs Immat Gran (auto) (0.00 - 0.03 0.06 H x10 3/uL) Add Manual Diff NO Immature Gran % (0.0 - 2.0 %) 0.7 Nucleated RBC % (0 - 0 %) 0.0 Nucleated RBCs # (Man) (0.0 - 0.1 0.00 x10 3/uL) Toxicology Random Vancomycin (mcg/mL) 15.7 09/10 09/09 0541 1911 Chemistry POC Glucose (70 - 110 MG/DL) 154 H 102 Recent Impressions: ULTRASOUND - US RETROPERITONEAL COM 09/10 1311 Report Impression - Status: SIGNED Entered: 09/10/2022 1503 IMPRESSION: No acute findings. Impression By: Hakeem Jacobo Laboratory Tests: 09/09 09/09 09/09 09/09 09/09 1606 1526 1403 1049 0524 Chemistry POC Glucose (70 - 110 MG/DL) 109 30 L 90 128 H Toxicology Random Vancomycin (mcg/mL) 15.4 09/09 09/08 09/08 0500 1955 1828 Chemistry Sodium (134 - 147 mEq/L) 136 Potassium (3.4 - 5.0 mEq/L) 4.2 Chloride (100 - 108 mEq/L) 107 Carbon Dioxide (21 - 33 mEq/l) 22 Anion Gap (0 - 20) 11 BUN (7 - 18 mg/dL) 23 H Creatinine (0.6 - 1.3 mg/dL) 1.5 H Glomerular Filtr Rate (90 - 95) 53.6 L Glucose (70 - 110 mg/dL) 125 H POC Glucose (70 - 110 MG/DL) 106 Calcium (8.0 - 10.5 mg/dL) 8.2 Phosphorus (2.5 - 4.9 MG/DL) 4.0 Magnesium (1.80 - 2.40 mg/dL) 1.89 Iron (35 - 150 mcg/dL) 10 L TIBC (260 - 445 mcg/dL) 138 L % Saturation (14 - 34 %) 7.2 L Unsat Iron Binding (mcg/dL) 128 Ferritin (23.9 - 336.2 ng/mL) 700.5 H Lactate Dehydrogenase (87 - 241 IUnits/L) 193 Hematology WBC (4.5 - 11.0 x10 3/uL) 9.2 RBC (4.00 - 5.60 x10 6/uL) 3.01 L Hgb (12.5 - 16.9 g/dL) 8.5 L Hct (37.5 - 50.7 %) 25.9 L MCV (81.0 - 99.0 fL) 86.0 MCH (27.0 - 33.0 pg) 28.2 MCHC (33.0 - 37.0 g/dL) 32.8 L RDW (11.5 - 14.5 %) 13.8 Plt Count (150 - 400 x10 3/uL) 263 MPV (7.0 - 9.0 fL) 9.7 H Neut % (Auto) (56.0 - 77.0 %) 69.1 Lymph % (Auto) (14.0 - 32.0 %) 16.1 Boundary % (Auto) (4.8 - 9.0 %) 9.2 H Eos % (Auto) (0.3 - 3.7 %) 4.7 H Baso % (Auto) (0.0 - 2.0 %) 0.4 Neut # (Auto) (2.0 - 7.6 x10 3/uL) 6.38 Lymph # (Auto) (1.0 - 3.8 x10 3/uL) 1.49 Boundary # (Auto) (0.1 - 0.8 x10 3/uL) 0.85 H Eos # (Auto) (0.0 - 0.2 x10 3/uL) 0.43 H Baso # (Auto) (0.0 - 0.2 x10 3/uL) 0.04 Abs Immat Gran (auto) (0.00 - 0.03 x10 3/uL) 0. 05 H Add Manual Diff NO Immature Gran % (0.0 - 2.0 %) 0.5 Nucleated RBC % (0 - 0 %) 0.0 Nucleated RBCs # (Man) (0.0 - 0.1 x10 3/uL) 0.0 0 Retic Count (auto) (0.3 - 2.3 %) 1.3 Laboratory Tests: 09/08 09/08 09/08 09/08 09/08 1611 1318 1045 1033 0616 Chemistry POC Glucose (70 - 110 MG/DL) 120 H 101 99 101 Toxicology Random Vancomycin (mcg/mL) 15.8 09/08 09/07 09/07 0615 2238 2110 Chemistry Sodium (134 - 147 mEq/L) 135 Potassium (3.4 - 5.0 mEq/L) 4.6 Chloride (100 - 108 mEq/L) 107 Carbon Dioxide (21 - 33 mEq/l) 22 Anion Gap (0 - 20) 10 BUN (7 - 18 mg/dL) 22 H Creatinine (0.6 - 1.3 mg/dL) 1.4 H Glomerular Filtr Rate (90 - 95) 58.3 L Glucose (70 - 110 mg/dL) 100 POC Glucose (70 - 110 MG/DL) 135 H 127 H Calcium (8.0 - 10.5 mg/dL) 8.1 Magnesium (1.80 - 2.40 mg/dL) 1.58 L Total Creatine Kinase (46 - 171 Units/L) 22 L Albumin (3.4 - 5.0 g/dL) 1.30 L Prealbumin (16.0 - 40.0 mg/dL) < 5.0 L Hematology WBC (4.5 - 11.0 x10 3/uL) 9.1 RBC (4.00 - 5.60 x10 6/uL) 3.05 L Hgb (12.5 - 16.9 g/dL) 8.5 L Hct (37.5 - 50.7 %) 26.2 L MCV (81.0 - 99.0 fL) 85.9 MCH (27.0 - 33.0 pg) 27.9 MCHC (33.0 - 37.0 g/dL) 32.4 L RDW (11.5 - 14.5 %) 13.5 Plt Count (150 - 400 x10 3/uL) 231 MPV (7.0 - 9.0 fL) 9.6 H Neut % (Auto) (56.0 - 77.0 %) 73.3 Lymph % (Auto) (14.0 - 32.0 %) 13.7 L Boundary % (Auto) (4.8 - 9.0 %) 7.2 Eos % (Auto) (0.3 - 3.7 %) 4.8 H Baso % (Auto) (0.0 - 2.0 %) 0.3 Neut # (Auto) (2.0 - 7.6 x10 3/uL) 6.64 Lymph # (Auto) (1.0 - 3.8 x10 3/uL) 1.24 Boundary # (Auto) (0.1 - 0.8 x10 3/uL) 0.65 Eos # (Auto) (0.0 - 0.2 x10 3/uL) 0.43 H Baso # (Auto) (0.0 - 0.2 x10 3/uL) 0.03 Abs Immat Gran (auto) (0.00 - 0.03 x10 3/uL) 0. 06 H Add Manual Diff NO Immature Gran % (0.0 - 2.0 %) 0.7 Nucleated RBC % (0 - 0 %) 0.0 Nucleated RBCs # (Man) (0.0 - 0.1 x10 3/uL) 0.0 0 Laboratory Tests: 09/07 09/07 09/07 09/07 09/07 1554 1137 1127 0618 0510 Chemistry Creatinine (0.6 - 1.3 mg/dL) 1.4 H POC Glucose (70 - 110 MG/DL) 112 H 51 L 42 L 13 5 H Hematology Hgb (12.5 - 16.9 g/dL) 8.4 L Hct (37.5 - 50.7 %) 26.2 L Toxicology Random Vancomycin (mcg/mL) 14.7 09/06 09/06 2226 2108 Chemistry POC Glucose (70 - 110 MG/DL) 192 H 211 H Laboratory Tests: 09/06 09/06 09/06 09/06 09/06 1553 1547 1051 0538 0536 Chemistry Creatinine (0.6 - 1.3 mg/dL) 1.4 H POC Glucose (70 - 110 MG/DL) 119 H 92 124 H Hematology Hgb (12.5 - 16.9 g/dL) 8.6 L Hct (37.5 - 50.7 %) 26.1 L Toxicology Vancomycin Trough (10.0 - 20.0 mcg/mL) 18.9 09/05 1910 Chemistry POC Glucose (70 - 110 MG/DL) 117 H Laboratory Tests: 09/05 09/05 09/04 09/04 09/04 1149 0615 2042 1630 1557 Chemistry Sodium (134 - 147 mEq/L) 134 Potassium (3.4 - 5.0 mEq/L) 5.0 Chloride (100 - 108 mEq/L) 109 H Carbon Dioxide (21 - 33 mEq/l) 21 Anion Gap (0 - 20) 9 BUN (7 - 18 mg/dL) 24 H Creatinine (0.6 - 1.3 mg/dL) 1.3 Glomerular Filtr Rate (90 - 95) 63.7 L Glucose (70 - 110 mg/dL) 75 POC Glucose (70 - 110 MG/DL) 74 103 128 H Calcium (8.0 - 10.5 mg/dL) 7.9 L Hematology Hgb (12.5 - 16.9 g/dL) 7.1 L Hct (37.5 - 50.7 %) 22.7 L Toxicology Vancomycin Trough (10.0 - 20.0 mcg/mL) 12.8 Microbiology: Date/Time Procedure - Status Source Growth 09/04 1739 Occult Blood - COMP STOOL Recent Impressions: RADIOLOGY - XR ABDOMEN 1V (KUB) 09/04 1648 Report Impression - Status: SIGNED Entered: 09/04/2022 1757 IMPRESSION: Benign appearance of the abdomen. Impression By: [email or web address] - Hakeem Soto ULTRASOUND - [facility]I/LTD 09/05 1146 Report Impression - Status: SIGNED Entered: 09/05/2022 1333 IMPRESSION: 1. No evidence of deep vein thrombosis. 2. Complex heterogeneous hypoechoic fluid collec tion in the left calf region measuring 8.4 x 2.8 x 2.5 cm; there is no internal vascularity or peripheral hyperemia. May represe nt a hematoma. Impression By: [email or web address] - Mert Ga M.D. RADIOLOGY - XR CHEST 1 V 09/05 1432 Report Impression - Status: SIGNED Entered: 09/05/2022 1515 IMPRESSION: Minimal bibasilar pulmonary opacities Impression By: TipTDO Hakeem Rubio Laboratory Tests: 09/04 09/04 09/04 09/04 09/04 1630 1557 1100 1031 0816 Chemistry POC Glucose (70 - 110 MG/DL) 128 H 107 99 Hematology Hgb (12.5 - 16.9 g/dL) 7.7 L Hct (37.5 - 50.7 %) 23.7 L Toxicology Vancomycin Trough (10.0 - 20.0 mcg/mL) 12.8 09/04 09/04 09/03 09/03 0721 0540 1944 1836 Chemistry POC Glucose (70 - 110 MG/DL) 87 124 H Hematology Hgb (12.5 - 16.9 g/dL) 6.8 L Hct (37.5 - 50.7 %) 21.2 L Toxicology Vancomycin Peak (30 - 40 MCG/ML) 27.4 L Microbiology: Date/Time Procedure - Status Source Growth 09/04 1037 Occult Blood - COLB STOOL 1.Diabetes mellitus type 2 uncontrolled complica tions. 2. 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 4. Sepsis 5. Prostate abscess. 6. Anemia Blood sugar 61-162 mg/dL.H/H 8.11/17. Adjust insulin dose. PT and OT. Electronically Signed by Braxton Chapin MD on at 1500 RPT #:[id number] END OF REPORT 2022-09-19 14:14:00-00:00 [facility] Progress Note REPORT#:[id number] REPORT STATUS: Signed DATE:09/19/22 TIME: 1414 PATIENT: KARMA ROWLAND UNIT #: [id number] ROOM/BED: [place] [id number] : 61 AGE: 56 SEX: M ATTEND: Fredy Vences MD ADM AUTHOR: Mj Vences MD * ALL edits or amendments must be made on the [employer]/computer document * Subjective Chief complaint: Rehab follow-up Feels good today BKA site without bleeding Generalized and scrotal edema slowly improving BP improved Eating 75-100% at bedside + BM Denies MCBRIDE/N/V/D/CP 14 systems reviewed and neg. except that above. History of present illness: 56 yo HAM with long h/o DM, and HTN who was admitted for fever, flulike symptoms and altered mental status on 08/18. He was doing well until about 3 days prior to admission when he noted blister to have formed o n the dorsum of his foot. His foot started progressively getting more swollen and the blisters started enlarging and extending to his lateral f oot and ankle. He started feeling weak and nauseated. He was noted to have altered mentation and was brought to our ER. He was noted to be in DKA with Blood sugars grea ter than 600. He was seen by podiatry and surgery for BLE wounds and infectio n. He was treated in ICU for sepsis and DKA. He underwent incisional and excisional debridement of right foot and right ankle by podiatry. Patient also found to have prostate abscess underwent transrectal ultrasound aspiration of a bscess and transurethral resection of prostate and unroofing of abscess b y urology Dr. Bass. Endocrinology treated the DKA and blood sugars m uch improved. Patient's right foot was not salvageable and patient und erwent right BKA by Dr. LEROY on 08/28. Patient blood cultures showe d MRSA. Patient continued on antibiotics as per ID. MRI of the pelvis and foot completed. Patient r equired multiple PRBCs for anemia. Patient was found to have a possible small hematoma of the left calf on ultrasound. He complains of pain and swelling of the left ankle. Patient hemodynamically stable and plans are to be transferred to stepdown unit. He is on heparin subcu for VTE. Af ter surgery he is now being mobilized by PT and OT. He is wearing a [employer] orthotic for right knee /BKA protection. Prior to admission the patient was independent living in a single-story house with his spouse with a few steps up to front and back doo r. 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 is at bedside. Patient denies nausea, vomiting, fever, chills, chest pain, shortness of breath with diz ziness. He is requiring IV Dilaudid for pain control. Mental status back to baseline. Pt is progressing slowly with therapy d/t weakness and pain, self care deficit, decreased endurance and balance, and decreased functional mobility. Pt requiring acute inpt rehab for multidiscipli nary team of nursing, therapy, and physicians. Pt is willing and able to partici- kathleen in 3 hr/day inpt rehab to d/c home safely. Pt' s prior level of function was independent. Objective General VS: Vital Signs: Date Time Temp Pulse Resp B/P B/P Pulse O2 O2 F low FiO2 Mean Ox Delivery Rate 09/19 0655 98.4 90 17 138/68 91.6 98 Room air 09/19 0003 97.9 86 18 140/75 96.5 98 09/18 1935 97.7 83 16 135/67 89.9 98 Room air 09/18 1441 77 18 157/80 105.5 98 Room air PATIENT WEIGHT: Weight (lb): 167 Weight (oz): 12.35 Weight (kg): 76.100 Medications: Active Meds + DC'd Last 24 Hrs Magnesium Sulfate (MAGNESIUM SULFATE 2GM/SWFI 50 ML) 50 ML ONCE ONE IV ( DC) Prednisone (predniSONE) 60 MG DAILY 0600 PO Daptomycin (CUBICIN 500MG) 500 MG Q24H IV Sodium Chloride (SODIUM CHLORIDE 0.9%) 50 ML Furosemide (LASIX 40 mg/4 mL INJECTION) 40 MG Q8 HR IV (DC) Hydralazine HCl (APRESOLINE) 75 MG Q8HR PO Daptomycin (CUBICIN 500MG) 500 MG Q48H IV (DC) Sodium Chloride (SODIUM CHLORIDE 0.9%) 50 ML Insulin Human Lispro (HUMALOG) 10 UNIT AC SUBQ Insulin Glargine (Semglee) 20 UNIT BEDTIME SUBQ Meropenem (MEROPENEM) 500 MG Q8H IV Sterile Water (WATER FOR INJECTION) 10 ML Carvedilol (COREG) 25 MG C BK DIN PO Gabapentin (NEURONTIN) 100 MG Q8HR PO Oxycodone/Acetaminophen (PERCOCET 5/325MG TAB) 2 TAB Q4H PRN PRN PO Folic Acid (FOLIC ACID) 2 MG DAILY PO Multivitamins (TAB-A-MOHAN) 1 TAB DAILY PO Furosemide (LASIX 20MG INJ) 20 MG BLOOD-DOSE BET WEEN IV (CKD) Sodium Chloride (SODIUM CHLORIDE) 10 ML ASDIR IV Pantoprazole Sodium (PROTONIX) 40 MG Q12HR IV Polyethylene Glycol (MIRALAX) 17 GM DAILY PO Sennosides (Senna Lax 8.6 MG TABLET) 8.6 MG MADALYN Y PO Sodium Chloride (SODIUM CHLORIDE) 10 ML ASDIR NV N IV Amitriptyline HCl (ELAVIL) 25 MG BEDTIME PO Zinc Oxide (ZINC OXIDE 30 GM OINTMENT) 1 APPLIC DAILY TOPICAL Sterile Water (WATER FOR IRRIGATION) DRESSING CH GELACIO ASDIR PRN IRR Insulin Human Lispro (HUMALOG) 0 AC HS SUBQ Dextrose/Water (DEXTROSE 10% IN WATER) 125 ML DIR PRN IV (CKD) Dextrose/Water (DEXTROSE 10% IN WATER) 250 ML DIR PRN IV (CKD) Glucagon (GLUCAGON) 1 MG ASDIR PRN IM Lidocaine (LIDODERM) 1 PATCH DAILY TOPICAL Acetaminophen (TYLENOL) 650 MG Q6H PRN PRN PO Bisacodyl (DULCOLAX) 10 MG DAILY PRN PRN RECTAL Docusate Sodium (COLACE) 100 MG Q12H PRN PRN PO Hydralazine HCl (APRESOLINE) 10 MG Q6H PRN PRN I V Ondansetron HCl (ZOFRAN) 4 MG Q6H PRN PRN IV Physical Exam General appearance: alert, awake, no acute distr ess Psych: alert, normal affect, oriented x 3 HEENT: anicteric, sclera clear Neck: supple, no JVD Cardiovascular: S1/S2, no murmur Respiratory: aerating well, clear bilaterally Abdomen: bowel sounds present, non-distended, so ft, non-tender Skin: no rash, R BKA HEALING. 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 3, CNII-XII intact Results Findings/Data: Laboratory Tests: 09/19 09/19 09/19 09/18 09/18 1133 0501 0448 2151 1933 Chemistry Sodium (134 - 147 mEq/L) 139 Potassium (3.4 - 5.0 mEq/L) 3.8 Chloride (100 - 108 mEq/L) 108 Carbon Dioxide (21 - 33 mEq/l) 22 Anion Gap (0 - 20) 13 BUN (7 - 18 mg/dL) 72 H Creatinine (0.6 - 1.3 mg/dL) 2.3 H Glomerular Filtr Rate (90 - 95) 32.1 L Glucose (70 - 110 mg/dL) 61 L POC Glucose (70 - 110 MG/DL) 96 162 H 103 70 Calcium (8.0 - 10.5 mg/dL) 7.5 L Phosphorus (2.5 - 4.9 MG/DL) 5.0 H Magnesium (1.80 - 2.40 mg/dL) 1.69 L Hematology WBC (4.5 - 11.0 x10 3/uL) 13.3 H RBC (4.00 - 5.60 x10 6/uL) 2.79 L Hgb (12.5 - 16.9 g/dL) 8.0 L Hct (37.5 - 50.7 %) 25.0 L MCV (81.0 - 99.0 fL) 89.6 MCH (27.0 - 33.0 pg) 28.7 MCHC (33.0 - 37.0 g/dL) 32.0 L RDW (11.5 - 14.5 %) 14.9 H Plt Count (150 - 400 x10 3/uL) 347 MPV (7.0 - 9.0 fL) 9.1 H Neut % (Auto) (56.0 - 77.0 %) 71.4 Lymph % (Auto) (14.0 - 32.0 %) 16.5 Boundary % (Auto) (4.8 - 9.0 %) 8.4 Eos % (Auto) (0.3 - 3.7 %) 2.4 Baso % (Auto) (0.0 - 2.0 %) 0.2 Neut # (Auto) (2.0 - 7.6 x10 3/uL) 9.50 H Lymph # (Auto) (1.0 - 3.8 x10 3/uL) 2.19 Boundary # (Auto) (0.1 - 0.8 x10 3/uL) 1.11 H Eos # (Auto) (0.0 - 0.2 x10 3/uL) 0.32 H Baso # (Auto) (0.0 - 0.2 x10 3/uL) 0.02 Abs Immat Gran (auto) (0.00 - 0.03 0.14 H x10 3/uL) Add Manual Diff NO Immature Gran % (0.0 - 2.0 %) 1.1 Nucleated RBC % (0 - 0 %) 0.0 Nucleated RBCs # (Man) (0.0 - 0.1 0.00 x10 3/uL) 09/18 1611 Chemistry POC Glucose (70 - 110 MG/DL) 118 H Diagnosis, Assessment Plan Free Text A P: Assessment: 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 Leroy Significant impairment in self-care, ADLs and fu nctional mobility Impaired mobility and gait Acute postoperative pain right BKA Diabetic polyneuropathy DKA, DM 2, poorly controlled, A1c greater than 1 4 PAD MRSA bacteremia/sepsis-treated on acute ERIKA Severe hyponatremia-resolved HTN Acute on chronic anemia requiring multiple trans fusions, possible GI bleed Left calf hematoma Edema and clinical arthritis left ankle Early decubitus to left heel/DTI dorsal left mid foot Prostatic abscess 08/26: S/p transrectal ultrasound aspiration of ab scess and transurethral resection of prostate and unroofing of abscess 09/12: Echo: EF 55-59%, grade 1 diastolic dysfunc tion 09/02: JIMENA negative for vegetation MRSA OF NARES 09/08:s/p EGD and colonoscopy. EGD showed mild ga stritis. Colonoscopy showed rectal polyp that was resect ed by snare (tubular adenoma)-repeat colonoscopy in 5 years Plan: -PLOF: Independent with transfers and gait -Amputee rehab program -Continue PT and OT -15/12 rehabilitation nursing care. -Case management for safe discharge planning. -Decubitus prevention -Early decubitus to left heel/DTI dorsal left mi dfoot-zinc oxide to the foot, foam, offloading, podiatry managing -DVT prophylaxis-SCD left leg -Strict fall and safety precautions -Work on bed mobility, transfer training, ADLs, pre-gait and gait exercises -Increase endurance and strength -Monitor pain with therapies -OOB to chair -Monitor p.o. intake and nut rition, albumin 1.3, prealbumin less than 5, dietary consultation, protein supplements to promote hea ling -Diabetes-A1c 14, tight glycemia control- endocr ine on board, insulin adjustments -Endocrinology, ID, podiatry, cardiology, IM con sulted -Pain management adjusting pain medications -Anemia, patient required multiple units of PRBC s on acute, FOBT positive -IV Protonix-consult GI-seri al H H-no evidence of gross bleeding-discussed with Dr. Trinidad -Constipation-abdominal wsjnhfok-LNS-nwisld-CW S enokot and MiraLAX, DSP -MRSA OF NARES on Bactroban protocol -LLE edema-venous Doppler wi th complex heterogeneous hypoechoic fluid collection in the left calf region measuring 8.4, 2.8, 2.5 cm suggestive of hematoma. On low-dose Lasix. Oralia wrap LLE -LE edema could be related to hypoalbuminemia le ading to third spacing-edema improving -Generalized edema-some shor tness of breath and abdominal distention-cardiology gave a dose of IV Lasix-monitor urine output, da jaz weights-SOB resolved -09/05-venous Doppler of LLE-negative for DVT-Oralia wrap dressing and elevation -Anemia-hemoglobin 8.3, 7.7, 8.2, 7.6, 8 transfu sed 2 units of PRBC on 09/05 -09/08: s/p EGD and colonoscopy. EGD showed mild gastritis. Colonoscopy showed rectal polyp that was resected by snare. Anemia likely secondary to chronic kidney disease. Consult renal. -Pathology of polyp came back as tubular adenoma . recommend repeating colonoscopy in 5 years as per GI -Consider video capsule endoscopy as outpt if ev idence of dropping H/H -Renal ultrasound negative -09/19/2022 blood pressure better, sodium 139, potassium 3.8, CO2 22, BUN 72 up from 66, creatinine 2.3 up from 2.2, will hold o ff diuretics, urine output reported 2 L, magnesium 1.69 we will give magnesium sulfate 2 g IV x1, continue prednisone-as per renal -MRSA bacteremia and prostat ic abscess-WBC 13.3-monitor on Merrem and Daptomycin til 09/24 as per ID -Lasix as per nephrology -Completed Solu-Medrol -09/12: Echo-EF 55-60%, indet erminate diastolic function parameters as per cardio -BP continues to be elevated, Hydralazine increa sed to 75 mg TID, cont Metoprolol to 25 mg BID -BS better but likely to inc rease with re-initiation of steroids x3 days started by Nephrology for AIN -Endo adjusting insulin -Car transfer training 09/23 -Creatinine continues to improve-discussed with patient and about renal issues are improving -Advance therapies as tolerated-discusse d treatment plan with patient and -Right GKS-mnnsqcv-gvloebku resolved, dressings changed today-no bleeding after heparin discontinued, SCD to left leg -Patient continue to make progress. Emphasizing transfers with rolling walker and residual limb care. Progress: WORKED ON SQUAT PIVOT WITH ASSISTANCE FOR WC SET UP TO LEFT, CGA FOR SQUAT PIVOT, ASSIST APPLYING FLOT TECH AND LEG REST. PATIENT WORKED ON WC PROPULSION WITH MOD I 200 FEET , EDUCATED ON LOCKING BRAKES, SCOOTING TO EDGE OF WC, PUSHING OF WC AND USING RW DURING STAND PIVOT TRANSFERS TO [facility]. PM R Please see team note. Plan and goals discussed with the patient. I agree with the teams finding ELOS- [09/24] on IV antibiotics until 09/24 DC-Home with -Home health DME-bedside commode, sliding board, wheelchair, drop arm bedside commode Total time 33 minutes greater than 50% of the ti me spent examining patient, discussing with patient about BKA incisi on improving, no bleeding, improvement in renal function, on steroi ds, medical issues, anemia, amputee rehab, discharge plans, rehab plan of care, goals, therapies, pro dyan, labs, medications. EMR and MAR is reviewed. All questions answered Consultants: cardiology, endocrinology, hospital ist, infectious disease, podiatry Rehab attestation: Face to face exam completed. Treatment plan disc ussed with patient. Meets continued stay criteria. Agree with interdiscipl inary treatment plan. at 1424 RPT #:[id number] END OF REPORT 2022-09-19 13:22:00-00:00 [facility] ([facility]) Hospitalist Progress Note REPORT#:[id number] REPORT STATUS: Signed DATE:09/19/22 TIME: 1322 PATIENT: KARMA ROWLAND UNIT #: [id number] ROOM/BED: [place] [id number] : 63 AGE: 56 SEX: M ATTEND: Fredy Vences MD ADM AUTHOR: Meera Chavira DO * ALL edits or amendments must be made on the el [employer]/computer document * Subjective Chief complaint: Edema LLE improved but still present Objective General VS/I O: Vital Signs: Date Time Temp Pulse Resp B/P B/P Pulse O2 O2 F low FiO2 Mean Ox Delivery Rate 09/19 0655 98.4 90 17 138/68 91.6 98 Room air 09/19 0003 97.9 86 18 140/75 96.5 98 09/18 1935 97.7 83 16 135/67 89.9 98 Room air 09/18 1441 77 18 157/80 105.5 98 Room air 24 hour I O ending at 0700: 09/19 0700 09/18 1900 Intake Total 100 480 Output Total 1999 Balance 100 -1520 Intake, Oral 100 480 Number 2 Bowel Movements Number 0 Incontinent Voids Number Voids 0 Output, Urine 1999 PATIENT WEIGHT: Weight (lb): 167 Weight (oz): 12.35 Weight (kg): 76.100 Medications: Active Meds + DC'd Last 24 Hrs Magnesium Sulfate (MAGNESIUM SULFATE 2GM/SWFI 50 ML) 50 ML ONCE ONE IV ( DC) Prednisone (predniSONE) 60 MG DAILY 0600 PO Daptomycin (CUBICIN 500MG) 500 MG Q24H IV Sodium Chloride (SODIUM CHLORIDE 0.9%) 50 ML Furosemide (LASIX 40 mg/4 mL INJECTION) 40 MG Q8 HR IV (DC) Hydralazine HCl (APRESOLINE) 75 MG Q8HR PO Daptomycin (CUBICIN 500MG) 500 MG Q48H IV (DC) Sodium Chloride (SODIUM CHLORIDE 0.9%) 50 ML Insulin Human Lispro (HUMALOG) 10 UNIT AC SUBQ Heparin Sodium (HEPARIN 5000 UNITS/ML) 5,000 UNI T Q12HR SUBQ (DC) Insulin Glargine (Semglee) 20 UNIT BEDTIME SUBQ Meropenem (MEROPENEM) 500 MG Q8H IV Sterile Water (WATER FOR INJECTION) 10 ML Carvedilol (COREG) 25 MG C BK DIN PO Gabapentin (NEURONTIN) 100 MG Q8HR PO Oxycodone/Acetaminophen (PERCOCET 5/325MG TAB) 2 TAB Q4H PRN PRN PO Folic Acid (FOLIC ACID) 2 MG DAILY PO Multivitamins (TAB-A-MOHAN) 1 TAB DAILY PO Furosemide (LASIX 20MG INJ) 20 MG BLOOD-DOSE BET WEEN IV (CKD) Sodium Chloride (SODIUM CHLORIDE) 10 ML ASDIR IV Pantoprazole Sodium (PROTONIX) 40 MG Q12HR IV Polyethylene Glycol (MIRALAX) 17 GM DAILY PO Sennosides (Senna Lax 8.6 MG TABLET) 8.6 MG MADALYN Y PO Sodium Chloride (SODIUM CHLORIDE) 10 ML ASDIR NV N IV Amitriptyline HCl (ELAVIL) 25 MG BEDTIME PO Zinc Oxide (ZINC OXIDE 30 GM OINTMENT) 1 APPLIC DAILY TOPICAL Sterile Water (WATER FOR IRRIGATION) DRESSING CH GELACIO ASDIR PRN IRR Insulin Human Lispro (HUMALOG) 0 AC HS SUBQ Dextrose/Water (DEXTROSE 10% IN WATER) 125 ML DIR PRN IV (CKD) Dextrose/Water (DEXTROSE 10% IN WATER) 250 ML DIR PRN IV (CKD) Glucagon (GLUCAGON) 1 MG ASDIR PRN IM Lidocaine (LIDODERM) 1 PATCH DAILY TOPICAL Acetaminophen (TYLENOL) 650 MG Q6H PRN PRN PO Bisacodyl (DULCOLAX) 10 MG DAILY PRN PRN RECTAL Docusate Sodium (COLACE) 100 MG Q12H PRN PRN PO Hydralazine HCl (APRESOLINE) 10 MG Q6H PRN PRN I V Ondansetron HCl (ZOFRAN) 4 MG Q6H PRN PRN IV Physical Exam General appearance: alert, awake, oriented, no a cute distress, pleasant, conversational, mental status normal, no respira tory distress Head/Eyes: atraumatic, normocephalic ENT: moist mucosal membranes Neck: no JVD Cardiovascular: normal heart sounds, regular rat e rhythm Respiratory: aerating well, clear to auscultatio n Abdomen: non-tender, normal bowel sounds Genitourinary: no bladder distention Extremities: edema (1+ pitting edema to thigh), moves all, normal capillary refill Musculoskeletal: normal inspection 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 X 3, 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 Considered stroke alert: no Skin: dry, intact Psychiatry: normal affect, normal judgment/insig ht Results Findings/Data: Laboratory Tests 09/19 09/19 09/19 09/18 09/18 1133 0501 0448 2151 1933 Chemistry Sodium (134 - 147 mEq/L) 139 Potassium (3.4 - 5.0 mEq/L) 3.8 Chloride (100 - 108 mEq/L) 108 Carbon Dioxide (21 - 33 mEq/l) 22 Anion Gap (0 - 20) 13 BUN (7 - 18 mg/dL) 72 H Creatinine (0.6 - 1.3 mg/dL) 2.3 H Glomerular Filtr Rate (90 - 95) 32.1 L Glucose (70 - 110 mg/dL) 61 L POC Glucose (70 - 110 MG/DL) 96 162 H 103 70 Calcium (8.0 - 10.5 mg/dL) 7.5 L Phosphorus (2.5 - 4.9 MG/DL) 5.0 H Magnesium (1.80 - 2.40 mg/dL) 1.69 L 09/18 1611 Chemistry POC Glucose (70 - 110 MG/DL) 118 H Laboratory Tests 09/19 0501 Hematology WBC (4.5 - 11.0 x10 3/uL) 13.3 H RBC (4.00 - 5.60 x10 6/uL) 2.79 L Hgb (12.5 - 16.9 g/dL) 8.0 L Hct (37.5 - 50.7 %) 25.0 L MCV (81.0 - 99.0 fL) 89.6 MCH (27.0 - 33.0 pg) 28.7 MCHC (33.0 - 37.0 g/dL) 32.0 L RDW (11.5 - 14.5 %) 14.9 H Plt Count (150 - 400 x10 3/uL) 347 MPV (7.0 - 9.0 fL) 9.1 H Neut % (Auto) (56.0 - 77.0 %) 71.4 Lymph % (Auto) (14.0 - 32.0 %) 16.5 Boundary % (Auto) (4.8 - 9.0 %) 8.4 Eos % (Auto) (0.3 - 3.7 %) 2.4 Baso % (Auto) (0.0 - 2.0 %) 0.2 Neut # (Auto) (2.0 - 7.6 x10 3/uL) 9.50 H Lymph # (Auto) (1.0 - 3.8 x10 3/uL) 2.19 Boundary # (Auto) (0.1 - 0.8 x10 3/uL) 1.11 H Eos # (Auto) (0.0 - 0.2 x10 3/uL) 0.32 H Baso # (Auto) (0.0 - 0.2 x10 3/uL) 0.02 Abs Immat Gran (auto) (0.00 - 0.03 x10 3/uL) 0. 14 H Add Manual Diff NO Immature Gran % (0.0 - 2.0 %) 1.1 Nucleated RBC % (0 - 0 %) 0.0 Nucleated RBCs # (Man) (0.0 - 0.1 x10 3/uL) 0.0 0 Diagnosis, Assessment Plan Consultants: cardiology, endocrinology, hospital ist, infectious disease, podiatry Free Text DxA P Notes Free text DxA P notes: Gangrene of right foot s/p Below- knee amputatio n Prostate abscess MRSA bacteremia Hx of Diabetes, Diabetic neuropathy HTN ERIKA PLANS: Continue with PT/OT per primary Wound care and Abx as per ID Hepain PPX IV iron BP continues to be elevated, Hydralazine increased to 75 mg TID, cont Metoprolol to 25 mg BID BS better but likely to incr ease with re-initiation of steroids x3 days started by Nephrology for AIN - Endo adjusting insulin pain control Cr at 2.2, Nephrology following, re-started Pred nisone 60 mg for 2 days Edema about the same, Lasix as per renal Hgb stabilized. continue to monitor Electronically Signed by Meera Chavira DO on 3 at 1323 RPT #:[id number] END OF REPORT 2022-09-19 10:38:00-00:00 [facility] Cardiology Progress Note REPORT#:[id number] REPORT STATUS: Signed DATE:09/19/22 TIME: 1038 PATIENT: KARMA ROWLAND UNIT #: [id number] ROOM/BED: [place] [address] : 63 AGE: 56 SEX: M ATTEND: Fredy Vences MD ADM AUTHOR: Rohit Benitez CLAY MILLER * ALL edits or amendments must be made on the el [employer]/computer document * Rohit Benitez 09/19/22 1038: Subjective Chief complaint: weakness Free Text Subj Notes Free Text Subj Notes: Patient seen and evaluated. Chart reviewed. No n ew symptoms, feeling well. Denies chest pain, or shortness of breath. Objective General VS/I O: 24 hour I O ending at 0700: 09/19 0700 09/18 1900 Intake Total 100 480 Output Total 1999 Balance 100 -1520 Intake, Oral 100 480 Number 2 Bowel Movements Number 0 Incontinent Voids Number Voids 0 Output, Urine 1999 Vital Signs: Date Time Temp Pulse Resp B/P B/P Pulse O2 O2 Flow FiO2 Mean Ox Delivery Rate 09/19 0655 98.4 90 17 138/68 91.6 98 Room air 09/19 0003 97.9 86 18 140/75 96.5 98 09/18 1935 97.7 83 16 135/67 89.9 98 Room air 09/18 1441 77 18 157/80 105.5 98 Room air PATIENT WEIGHT: Weight (lb): 167 Weight (oz): 12.35 Weight (kg): 76.100 Medications: Active Meds + DC'd Last 24 Hrs Magnesium Sulfate (MAGNESIUM SULFATE 2GM/SWFI 50 ML) 50 ML ONCE ONE IV ( DC) Prednisone (predniSONE) 60 MG DAILY 0600 PO Daptomycin (CUBICIN 500MG) 500 MG Q24H IV Sodium Chloride (SODIUM CHLORIDE 0.9%) 50 ML Furosemide (LASIX 40 mg/4 mL INJECTION) 40 MG Q8 HR IV (DC) Hydralazine HCl (APRESOLINE) 75 MG Q8HR PO Daptomycin (CUBICIN 500MG) 500 MG Q48H IV (DC) Sodium Chloride (SODIUM CHLORIDE 0.9%) 50 ML Insulin Human Lispro (HUMALOG) 10 UNIT AC SUBQ Heparin Sodium (HEPARIN 5000 UNITS/ML) 5,000 UNI T Q12HR SUBQ (DC) Insulin Glargine (Semglee) 20 UNIT BEDTIME SUBQ Meropenem (MEROPENEM) 500 MG Q8H IV Sterile Water (WATER FOR INJECTION) 10 ML Carvedilol (COREG) 25 MG C BK DIN PO Gabapentin (NEURONTIN) 100 MG Q8HR PO Oxycodone/Acetaminophen (PERCOCET 5/325MG TAB) 2 TAB Q4H PRN PRN PO Folic Acid (FOLIC ACID) 2 MG DAILY PO Multivitamins (TAB-A-MOHAN) 1 TAB DAILY PO Furosemide (LASIX 20MG INJ) 20 MG BLOOD-DOSE BET WEEN IV (CKD) Sodium Chloride (SODIUM CHLORIDE) 10 ML ASDIR IV Pantoprazole Sodium (PROTONIX) 40 MG Q12HR IV Polyethylene Glycol (MIRALAX) 17 GM DAILY PO Sennosides (Senna Lax 8.6 MG TABLET) 8.6 MG MADALYN Y PO Sodium Chloride (SODIUM CHLORIDE) 10 ML ASDIR NV N IV Amitriptyline HCl (ELAVIL) 25 MG BEDTIME PO Zinc Oxide (ZINC OXIDE 30 GM OINTMENT) 1 APPLIC DAILY TOPICAL Sterile Water (WATER FOR IRRIGATION) DRESSING CH GELACIO ASDIR PRN IRR Insulin Human Lispro (HUMALOG) 0 AC HS SUBQ Dextrose/Water (DEXTROSE 10% IN WATER) 125 ML DIR PRN IV (CKD) Dextrose/Water (DEXTROSE 10% IN WATER) 250 ML DIR PRN IV (CKD) Glucagon (GLUCAGON) 1 MG ASDIR PRN IM Lidocaine (LIDODERM) 1 PATCH DAILY TOPICAL Acetaminophen (TYLENOL) 650 MG Q6H PRN PRN PO Bisacodyl (DULCOLAX) 10 MG DAILY PRN PRN RECTAL Docusate Sodium (COLACE) 100 MG Q12H PRN PRN PO Hydralazine HCl (APRESOLINE) 10 MG Q6H PRN PRN I V Ondansetron HCl (ZOFRAN) 4 MG Q6H PRN PRN IV Physical Exam General appearance: alert, awake, oriented Neck: no bruit/NL carotids, no JVD Cardiovascular: CV assessment: regular rate and rhythm, no ecto py, no gallop Respiratory: clear to auscultation, no distress Abdomen: soft, non-tender Lower extremity: LE assessment: edema, normal temperature 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 X 3 Considered stroke alert: no Wound/incision: Location: right bka Psychiatry: normal affect, normal judgment/insig ht, normal mood Results Findings/Data: Laboratory Tests 09/19 09/19 09/18 09/18 09/18 0501 0448 2151 1933 1611 Chemistry Sodium (134 - 147 mEq/L) 139 Potassium (3.4 - 5.0 mEq/L) 3.8 Chloride (100 - 108 mEq/L) 108 Carbon Dioxide (21 - 33 mEq/l) 22 Anion Gap (0 - 20) 13 BUN (7 - 18 mg/dL) 72 H Creatinine (0.6 - 1.3 mg/dL) 2.3 H Glomerular Filtr Rate (90 - 95) 32.1 L Glucose (70 - 110 mg/dL) 61 L POC Glucose (70 - 110 MG/DL) 162 H 103 70 118 H Calcium (8.0 - 10.5 mg/dL) 7.5 L Phosphorus (2.5 - 4.9 MG/DL) 5.0 H Magnesium (1.80 - 2.40 mg/dL) 1.69 L 09/18 1102 Chemistry POC Glucose (70 - 110 MG/DL) 80 Laboratory Tests 09/19 0501 Hematology WBC (4.5 - 11.0 x10 3/uL) 13.3 H RBC (4.00 - 5.60 x10 6/uL) 2.79 L Hgb (12.5 - 16.9 g/dL) 8.0 L Hct (37.5 - 50.7 %) 25.0 L MCV (81.0 - 99.0 fL) 89.6 MCH (27.0 - 33.0 pg) 28.7 MCHC (33.0 - 37.0 g/dL) 32.0 L RDW (11.5 - 14.5 %) 14.9 H Plt Count (150 - 400 x10 3/uL) 347 MPV (7.0 - 9.0 fL) 9.1 H Neut % (Auto) (56.0 - 77.0 %) 71.4 Lymph % (Auto) (14.0 - 32.0 %) 16.5 Boundary % (Auto) (4.8 - 9.0 %) 8.4 Eos % (Auto) (0.3 - 3.7 %) 2.4 Baso % (Auto) (0.0 - 2.0 %) 0.2 Neut # (Auto) (2.0 - 7.6 x10 3/uL) 9.50 H Lymph # (Auto) (1.0 - 3.8 x10 3/uL) 2.19 Boundary # (Auto) (0.1 - 0.8 x10 3/uL) 1.11 H Eos # (Auto) (0.0 - 0.2 x10 3/uL) 0.32 H Baso # (Auto) (0.0 - 0.2 x10 3/uL) 0.02 Abs Immat Gran (auto) (0.00 - 0.03 x10 3/uL) 0. 14 H Add Manual Diff NO Immature Gran % (0.0 - 2.0 %) 1.1 Nucleated RBC % (0 - 0 %) 0.0 Nucleated RBCs # (Man) (0.0 - 0.1 x10 3/uL) 0.0 0 Laboratory Tests 09/19 0501 Chemistry Magnesium (1.80 - 2.40 mg/dL) 1.69 L Diagnosis, Assessment Plan Consultants: cardiology, endocrinology, hospital ist, infectious disease, podiatry Free Text DxA P Notes Free Text DxA P Notes: Impression: 1. Debility 2. Infected right foot status post BKA 3. Bacteremia 4. Diabetes 5. Hypertension 6. Anemia 7. Acute Diastolic CHF 07/2022: Echocardiogram with normal LVEF, grade 1 diastolic dysfunction, mildly dilated LA, and no significant valvular abnormal ities Recommendation: Patient initially presented with DKA and sepsis. Diagnosed with right foot infection, underwent I D, now status post BKA. P atient had persistent bacteremia with MRSA, underwent JIMENA with negativ e findings of endocarditis. Patient now transferred to [facility] for physical therapy. Known cardiac history of hypertension and hyperlipide renetta. Vital signs stable. Echocardiogram with normal LVEF, grade 1 diastolic dysfunction, mildly dila carlos LA, and no significant valvular abnormalities. Continue to monitor bloo d pressure trend. Continue wound care and IV antibiotic therapy. Continue P T/OT. Supportive care. 09/04: Patient complaining of shortness of breath, abdominal distention and lower extremity edema. Renal function and electrolytes stable. Will give one-time dose of IV Lasix 40 mg. Blood pressure stable. P ending abdominal x-ray. Monitor intake and output. Check BMP in the morn ing. Supportive care. Plan of care discussed with patient, RN and Dr. Parham. 09/05: Patient responded well to IV Lasix , good urine output and improvement in shortness of breath. Chest x-ray ordered . Currently on Lasix 20 mg p.o. daily. Continue monitor renal function and electrolyte s. Pending lower extremity Doppler for lower extremity edema. Continue PT/O T. Supportive care. Plan of care discussed with patient, RN and Dr. Parham. 09/08: Blood pressure has been elevated, started on Coreg 3.125 mg twice daily. Continue monitor blood pressure trend and adjust medication as needed. Still having left lower extremity edema, venous Dopple r negative for DVT. continue gentle diuresis with Lasix 20 mg p.o. daily. Rec ommend Oralia wrap. Patient remains anemic, plan for EGD/colonoscopy today. Supportive care. Plan of care discussed with patient, family, RN and Dr. Parham . 09/09: Patient doing well status post EGD /colonoscopy, negative findings for GI bleed. Blood pressure improving, increased on Co reg to 12.5 mg twice daily. Elevated creatinine noted, nephrology following. No new cardiac complaint. Continue wound care. Continue PT/OT. Supportive care. Plan of care discussed with patient, RN and Dr. Parham. 09/10: Blood pressure remained stable on current regimen of Coreg. Patient continue to have left lower extremity edema. Cur rently on Lasix 20 mg daily. Creatinine 1.9 today, continue to monito r. Patient's albumin level was 1.3, it is possible that patient's lower extremity edema could be related to hypoalbuminemia leading to third spacing. Contin ue PT/OT. Supportive care. Plan of care discussed with patient, RN and Dr. Parham. 09/11: Patient doing well from cardiac standpoint . Blood pressure well controlled. Improvement in lower extremity edema with elevating leg while in bed. Creatinine 2.0 today. Denies shortness of b reath. Will hold diuretic for now and monitor renal function. Supportive care. Plan of care discussed with patient, RN and Dr. Parham. 09/12: Creatinine remains elevated at 2.4 today, antibiotic regimen also being adjusted. Patient still with lower extremity rose ma and rales on physical examination. Will check chest x-ray and limited echocardiogram for further evaluation. Check BNP. Continue hold diuretic fo r now. Supportive care. Plan of care discussed with patient, RN and Dr. Parham . 09/15: Repeat echocardiogram showed LVEF of 55 to 60%, no regional wall motion abnormalities, left ventricu lar diastolic function parameters are indeterminate, mildly dilated LA, and no pericardial effusion. BNP elevated 297. Continue to hold diuretic due to Elevate d creatinine, nephrology following and may consider renal biopsy. Continue to monitor fluid volume s tatus. Overall improvement in lower extremity with Oralia wrap. Continue physical therapy. Supportive care. Plan of care discussed with patient, RN and Dr. Parham. 09/16: Blood pressure slightly elevated, started on hydralazine 25 mg every 8 hours. Continue carvedilol monitor blood pressur e trend. Cr. 2.7 today, continue monitor. Tolerating physical therapy. E uvolemic by physical examination. Supportive care. Plan of care discu ssed with patient, RN and Dr. Parham. 09/17: Blood pressure remains elevated, likely re lated to steroid therapy. Hydralazine increased to 50 mg 3 times daily. Ne phrology managing diuretic therapy. Continue monitor renal function and pako ctrolytes. Improvement in lower extremity swelling. Patient denies chest p ain or shortness of breath. Tolerating PT/OT. Supportive care. Plan of care discussed with patient, RN and Dr. Parham. 09/18: Blood pressure remains elevated du e to steroid therapy. Continue monitor blood pressure trend, hydralazine increa sed to 75 mg 3 times daily. Responding to diuretic regimen with Lasix, good urine outpu t. Creatinine improving, 2.2 today. Continue to monitor fluid volume status. Continue physical therapy. Supportive care. Plan of care discussed with lori hart RN and Dr. Parham. 09/19: Blood pressure improving, continue hydrala zine and carvedilol. Overall improvement in fluid volume status. No n ew cardiac complaint. Continue steroid taper per nephrology. Progressing in therapy. Lacey tavarez planning. Supportive care. Plan of care discussed with patient, RN hiro Parham. Gianni Parham 09/20/22 1653: Diagnosis, Assessment Plan Additional comments: Patient was seen and examined at bedside , agree with above assessment and plan as documented by nurse practitioner. Will follow up Electronically Signed by Rohit Benitez NP on 0 09/19/22 at 1537 at 1654 RPT #:[id number] END OF REPORT 2022-09-19 10:32:00-00:[address] [facility] ([facility]) Infectious Dis. Progress Note REPORT#:[id number] REPORT STATUS: Signed DATE:09/19/22 TIME: 1032 PATIENT: KARMA ROWLAND UNIT #: [id number] ROOM/BED: [place] [address] : 63 AGE: 56 SEX: M ATTEND: Fredy Vences MD ADM AUTHOR: Linda Anderson MD * ALL edits or amendments must be made on the el [employer]/computer document * Subjective HPI: PT is a 56yr old male with h istory of diabetes mellitus type 2, hypertension who was admitted with altered mental status and righ t-sided foot infection. According to him, he noticed a blister on his right foot around 3 days prior to presentation. His foot got progressively more sw ollen and erythema extended proximally to his lateral foot and ankle. CT abd omen and pelvis with contrast is concerning for possible prostate abscess. CT of lower extremity without contrast shows extensive sof t tissue edema with mottled gas in the subcutaneous and intramuscular compartments of the foot, comp atible with gas-forming infection. Patient's blood cultures have come ba ck positive for MRSA in 2 out of 2 sets. PT has had persistent (+)Ve cx for MR FREITAS 08/18- 08/22. He underwent a debridement of his foot on 08/19 and cx g rew MRSA. PT was started on Vancomycin and clindamycin on 08/18. His MRI showed a prosta te abscess. 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 Pt underwent a transrectal aspiration and unroofing of prostate abscess 08/26 and cx grew Citrobacter, Enterococcus, MRSA. 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 JIMENA done 09/02. Pt was tr ansferred to Rehab on 09/02. Patient reports: No: cough, diarrhea, fever, headache, nausea, sh ortness of breath, vomiting. Portions of this section wer e scribed by Jill Quintero on 09/19/22 at 1032 Objective General VS/I O: Vital Signs Date Temp Pulse Resp B/P B/P Mean Pulse Ox FiO2 09/18-09/19 97.7-98.4 77-90 16-18 135-157/67-80 89.9-105.5 98 Last Documented: Result Date Time Pulse Ox 98 09/19 0655 B/P 138/68 09/19 0655 B/P Mean 91.6 09/19 0655 O2 Delivery Room air 09/19 0655 Temp 98.4 09/19 0655 Pulse 90 09/19 0655 Resp 17 09/19 0655 O2 Flow Rate 2 09/08 1322 Vital Signs: Date Time Temp Pulse Resp B/P B/P Pulse O2 O2 F low FiO2 Mean Ox Delivery Rate 09/19 0655 98.4 90 17 138/68 91.6 98 Room air 09/19 0003 97.9 86 18 140/75 96.5 98 09/18 1935 97.7 83 16 135/67 89.9 98 Room air 09/18 1441 77 18 157/80 105.5 98 Room air 24 hour I O ending at 0700: 09/19 0700 09/18 1900 Intake Total 100 480 Output Total 1999 Balance 100 -1520 Intake, Oral 100 480 Number 2 Bowel Movements Number 0 Incontinent Voids Number Voids 0 Output, Urine 1999 PATIENT WEIGHT: Weight (lb): 167 Weight (oz): 12.35 Weight (kg): 76.100 Medications: Active Meds + DC'd Last 24 Hrs Insulin Glargine (Semglee) 17 UNIT BEDTIME SUBQ Magnesium Sulfate (MAGNESIUM SULFATE 2GM/SWFI 50 ML) 50 ML ONCE ONE IV ( DC) Prednisone (predniSONE) 60 MG DAILY 0600 PO Daptomycin (CUBICIN 500MG) 500 MG Q24H IV Sodium Chloride (SODIUM CHLORIDE 0.9%) 50 ML Furosemide (LASIX 40 mg/4 mL INJECTION) 40 MG Q8 HR IV (DC) Hydralazine HCl (APRESOLINE) 75 MG Q8HR PO Insulin Human Lispro (HUMALOG) 10 UNIT AC SUBQ Insulin Glargine (Semglee) 20 UNIT BEDTIME SUBQ (DC) Meropenem (MEROPENEM) 500 MG Q8H IV Sterile Water (WATER FOR INJECTION) 10 ML Carvedilol (COREG) 25 MG C BK DIN PO Gabapentin (NEURONTIN) 100 MG Q8HR PO Oxycodone/Acetaminophen (PERCOCET 5/325MG TAB) 2 TAB Q4H PRN PRN PO Folic Acid (FOLIC ACID) 2 MG DAILY PO Multivitamins (TAB-A-MOHAN) 1 TAB DAILY PO Furosemide (LASIX 20MG INJ) 20 MG BLOOD-DOSE BET WEEN IV (CKD) Sodium Chloride (SODIUM CHLORIDE) 10 ML ASDIR IV Pantoprazole Sodium (PROTONIX) 40 MG Q12HR IV Polyethylene Glycol (MIRALAX) 17 GM DAILY PO Sennosides (Senna Lax 8.6 MG TABLET) 8.6 MG MADALYN Y PO Sodium Chloride (SODIUM CHLORIDE) 10 ML ASDIR NV N IV Amitriptyline HCl (ELAVIL) 25 MG BEDTIME PO Zinc Oxide (ZINC OXIDE 30 GM OINTMENT) 1 APPLIC DAILY TOPICAL Sterile Water (WATER FOR IRRIGATION) DRESSING CH GELACIO ASDIR PRN IRR Insulin Human Lispro (HUMALOG) 0 AC HS SUBQ Dextrose/Water (DEXTROSE 10% IN WATER) 125 ML DIR PRN IV (CKD) Dextrose/Water (DEXTROSE 10% IN WATER) 250 ML DIR PRN IV (CKD) Glucagon (GLUCAGON) 1 MG ASDIR PRN IM Lidocaine (LIDODERM) 1 PATCH DAILY TOPICAL Acetaminophen (TYLENOL) 650 MG Q6H PRN PRN PO Bisacodyl (DULCOLAX) 10 MG DAILY PRN PRN RECTAL Docusate Sodium (COLACE) 100 MG Q12H PRN PRN PO Hydralazine HCl (APRESOLINE) 10 MG Q6H PRN PRN I V Ondansetron HCl (ZOFRAN) 4 MG Q6H PRN PRN IV Antibiotic start date: Antibiotic: vancomycin Start Date:09/03-09/12 Antibiotic: daptomycin Start Date:08/28-09/03, restarted on 09/12 Antibiotic: cefepime Start Date:09/01-09/12 Antibiotic: merrem Start Date:08/27-09/01, 09/12- Physical Exam General appearance: alert, awake, oriented Head/Eyes: atraumatic, clear cornea, EOMI, felisa l conjunctiva/sclera, normal eyelids/periorb, normocephalic, PERRL ENT: moist mucosal membranes, normal dentition Neck: full range of motion Cardiovascular: normal heart sounds, regular rat e rhythm Respiratory: clear to auscultation, aerating wel l Abdomen: non-tender, normal bowel sounds, soft Extremities: edema (in left leg and thig h improved), moves all, right BKA Left foot wound +dressing in place 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 X 3 Considered stroke alert: no Skin: dry, intact Results Findings/Data: Laboratory Tests 09/19 09/19 09/18 09/18 09/18 0501 0448 2151 1933 1611 Chemistry Sodium (134 - 147 mEq/L) 139 Potassium (3.4 - 5.0 mEq/L) 3.8 Chloride (100 - 108 mEq/L) 108 Carbon Dioxide (21 - 33 mEq/l) 22 Anion Gap (0 - 20) 13 BUN (7 - 18 mg/dL) 72 H Creatinine (0.6 - 1.3 mg/dL) 2.3 H Glomerular Filtr Rate (90 - 95) 32.1 L Glucose (70 - 110 mg/dL) 61 L POC Glucose (70 - 110 MG/DL) 162 H 103 70 118 H Calcium (8.0 - 10.5 mg/dL) 7.5 L Phosphorus (2.5 - 4.9 MG/DL) 5.0 H Magnesium (1.80 - 2.40 mg/dL) 1.69 L 09/18 1102 Chemistry POC Glucose (70 - 110 MG/DL) 80 Laboratory Tests 09/19 0501 Hematology WBC (4.5 - 11.0 x10 3/uL) 13.3 H RBC (4.00 - 5.60 x10 6/uL) 2.79 L Hgb (12.5 - 16.9 g/dL) 8.0 L Hct (37.5 - 50.7 %) 25.0 L MCV (81.0 - 99.0 fL) 89.6 MCH (27.0 - 33.0 pg) 28.7 MCHC (33.0 - 37.0 g/dL) 32.0 L RDW (11.5 - 14.5 %) 14.9 H Plt Count (150 - 400 x10 3/uL) 347 MPV (7.0 - 9.0 fL) 9.1 H Neut % (Auto) (56.0 - 77.0 %) 71.4 Lymph % (Auto) (14.0 - 32.0 %) 16.5 Boundary % (Auto) (4.8 - 9.0 %) 8.4 Eos % (Auto) (0.3 - 3.7 %) 2.4 Baso % (Auto) (0.0 - 2.0 %) 0.2 Neut # (Auto) (2.0 - 7.6 x10 3/uL) 9.50 H Lymph # (Auto) (1.0 - 3.8 x10 3/uL) 2.19 Boundary # (Auto) (0.1 - 0.8 x10 3/uL) 1.11 H Eos # (Auto) (0.0 - 0.2 x10 3/uL) 0.32 H Baso # (Auto) (0.0 - 0.2 x10 3/uL) 0.02 Abs Immat Gran (auto) (0.00 - 0.03 x10 3/uL) 0. 14 H Add Manual Diff NO Immature Gran % (0.0 - 2.0 %) 1.1 Nucleated RBC % (0 - 0 %) 0.0 Nucleated RBCs # (Man) (0.0 - 0.1 x10 3/uL) 0.0 0 Laboratory Tests: 09/19 09/19 09/18 09/18 0501 0448 2151 1933 Chemistry Sodium (134 - 147 mEq/L) 139 Potassium (3.4 - 5.0 mEq/L) 3.8 Chloride (100 - 108 mEq/L) 108 Carbon Dioxide (21 - 33 mEq/l) 22 Anion Gap (0 - 20) 13 BUN (7 - 18 mg/dL) 72 H Creatinine (0.6 - 1.3 mg/dL) 2.3 H Glomerular Filtr Rate (90 - 95) 32.1 L Glucose (70 - 110 mg/dL) 61 L POC Glucose (70 - 110 MG/DL) 162 H 103 70 Calcium (8.0 - 10.5 mg/dL) 7.5 L Phosphorus (2.5 - 4.9 MG/DL) 5.0 H Magnesium (1.80 - 2.40 mg/dL) 1.69 L Hematology WBC (4.5 - 11.0 x10 3/uL) 13.3 H RBC (4.00 - 5.60 x10 6/uL) 2.79 L Hgb (12.5 - 16.9 g/dL) 8.0 L Hct (37.5 - 50.7 %) 25.0 L MCV (81.0 - 99.0 fL) 89.6 MCH (27.0 - 33.0 pg) 28.7 MCHC (33.0 - 37.0 g/dL) 32.0 L RDW (11.5 - 14.5 %) 14.9 H Plt Count (150 - 400 x10 3/uL) 347 MPV (7.0 - 9.0 fL) 9.1 H Neut % (Auto) (56.0 - 77.0 %) 71.4 Lymph % (Auto) (14.0 - 32.0 %) 16.5 Boundary % (Auto) (4.8 - 9.0 %) 8.4 Eos % (Auto) (0.3 - 3.7 %) 2.4 Baso % (Auto) (0.0 - 2.0 %) 0.2 Neut # (Auto) (2.0 - 7.6 x10 3/uL) 9.50 H Lymph # (Auto) (1.0 - 3.8 x10 3/uL) 2.19 Boundary # (Auto) (0.1 - 0.8 x10 3/uL) 1.11 H Eos # (Auto) (0.0 - 0.2 x10 3/uL) 0.32 H Baso # (Auto) (0.0 - 0.2 x10 3/uL) 0.02 Abs Immat Gran (auto) (0.00 - 0.03 x10 3/uL) 0. 14 H Add Manual Diff NO Immature Gran % (0.0 - 2.0 %) 1.1 Nucleated RBC % (0 - 0 %) 0.0 Nucleated RBCs # (Man) (0.0 - 0.1 x10 3/uL) 0.0 0 09/18 09/18 09/18 09/18 1611 1102 0906 0540 Chemistry POC Glucose (70 - 110 MG/DL) 118 H 80 171 H 203 H 09/18 09/17 09/17 0505 1904 1554 Chemistry Sodium (134 - 147 mEq/L) 138 Potassium (3.4 - 5.0 mEq/L) 4.1 Chloride (100 - 108 mEq/L) 108 Carbon Dioxide (21 - 33 mEq/l) 21 Anion Gap (0 - 20) 13 BUN (7 - 18 mg/dL) 66 H Creatinine (0.6 - 1.3 mg/dL) 2.2 H Glomerular Filtr Rate (90 - 95) 33.9 L Glucose (70 - 110 mg/dL) 201 H POC Glucose (70 - 110 MG/DL) 160 H 75 Calcium (8.0 - 10.5 mg/dL) 7.5 L Phosphorus (2.5 - 4.9 MG/DL) 4.4 Magnesium (1.80 - 2.40 mg/dL) 1.83 Hematology WBC (4.5 - 11.0 x10 3/uL) 10.6 RBC (4.00 - 5.60 x10 6/uL) 2.67 L Hgb (12.5 - 16.9 g/dL) 7.6 L Hct (37.5 - 50.7 %) 23.7 L MCV (81.0 - 99.0 fL) 88.8 MCH (27.0 - 33.0 pg) 28.5 MCHC (33.0 - 37.0 g/dL) 32.1 L RDW (11.5 - 14.5 %) 14.8 H Plt Count (150 - 400 x10 3/uL) 341 MPV (7.0 - 9.0 fL) 9.2 H Neut % (Auto) (56.0 - 77.0 %) 74.6 Lymph % (Auto) (14.0 - 32.0 %) 17.4 Boundary % (Auto) (4.8 - 9.0 %) 6.9 Eos % (Auto) (0.3 - 3.7 %) 0.1 L Baso % (Auto) (0.0 - 2.0 %) 0.1 Neut # (Auto) (2.0 - 7.6 x10 3/uL) 7.91 H Lymph # (Auto) (1.0 - 3.8 x10 3/uL) 1.85 Boundary # (Auto) (0.1 - 0.8 x10 3/uL) 0.73 Eos # (Auto) (0.0 - 0.2 x10 3/uL) 0.01 Baso # (Auto) (0.0 - 0.2 x10 3/uL) 0.01 Abs Immat Gran (auto) (0.00 - 0.03 x10 3/uL) 0. 10 H Add Manual Diff NO Immature Gran % (0.0 - 2.0 %) 0.9 Nucleated RBC % (0 - 0 %) 0.0 Nucleated RBCs # (Man) (0.0 - 0.1 x10 3/uL) 0.0 0 Medication(s) Ordered: Anti-Infective Agents Sig/Jan Start time Last Medication Dose Route Stop Time Status Admin Daptomycin 500 MG Q24H 09/18 1500 AC Sodium Chloride 50 ML IV 09/21 1529 Daptomycin 500 MG Q48H 09/16 1200 DC 09/18 Sodium Chloride 50 ML IV 09/22 1229 1244 Meropenem 500 MG Q8H 09/15 1200 AC 09/19 Sterile Water 10 ML IV 09/22 1159 0456 Blood Formation,Coagulation Sig/Jan Start time Last Medication Dose Route Stop Time Status Admin Heparin Sodium 5,000 UNIT Q12HR 09/15 2100 DC 0 09/18 SUBQ 10/15 2059 0934 Cardiovascular Drugs Sig/Jan Start time Last Medication Dose Route Stop Time Status Admin Hydralazine HCl 75 MG Q8HR 09/18 1400 AC 09/19 PO 10/18 1359 0455 Carvedilol 25 MG C BK DIN 09/13 1700 AC 09/19 PO 10/13 1659 0913 Hydralazine HCl 10 MG Q6H PRN PRN 09/01 1330 AC IV 10/01 1329 Central Nervous System Agents Sig/Jan Start time Last Medication Dose Route Stop Time Status Admin Magnesium Sulfate 50 ML ONCE ONE 09/19 0745 DC IV 09/19 0944 Gabapentin 100 MG Q8HR 09/10 1400 AC 09/19 PO 10/10 1359 0456 Oxycodone/ 2 TAB Q4H PRN PRN 09/10 0715 AC 08/24 8 Acetaminophen PO 10/10 1300 0911 Amitriptyline HCl 25 MG BEDTIME 09/04 2100 AC 0 09/18 PO 10/04 2059 2145 Acetaminophen 650 MG Q6H PRN PRN 09/01 1330 AC PO 10/01 1329 Electrolytic, Caloric, And Daniel Sig/Jan Start time Last Medication Dose Route Stop Time Status Admin Furosemide 40 MG Q8HR 09/18 1400 DC 09/19 IV 09/19 0601 0456 Furosemide 20 MG BLOOD-DOSE BETWEEN 09/05 1245 CKD IV 10/05 1244 Sodium Chloride 10 ML ASDIR 09/05 1245 AC IV 10/05 1244 Sodium Chloride 10 ML ASDIR PRN 09/05 0630 AC 0 09/15 IV 10/05 0629 0912 Sterile Water See Dose ASDIR PRN 09/03 2030 AC Insts (1) IRR 10/03 2028 Dextrose/Water 125 ML ASDIR PRN 09/03 1515 CKD IV 10/03 1514 Dextrose/Water 250 ML ASDIR PRN 09/03 1515 CKD 09/09 IV 10/03 1514 1529 Gastrointestinal Drugs Sig/Jan Start time Last Medication Dose Route Stop Time Status Admin Pantoprazole Sodium 40 MG Q12HR 09/05 09 AC 0 09/19 IV 10/05 0859 0911 Polyethylene Glycol 17 GM DAILY 09/05 899 AC 0 09/17 PO 10/05 0859 0901 Sennosides 8.6 MG DAILY 09/05 09 AC 09/19 PO 10/05 0859 0912 Bisacodyl 10 MG DAILY PRN PRN 09/01 1330 AC RECTAL 10/01 1329 Docusate Sodium 100 MG Q12H PRN PRN 09/01 1330 AC 09/13 PO 10/01 1329 1021 Ondansetron HCl 4 MG Q6H PRN PRN 09/01 1330 AC IV 10/01 1329 Hormones And Synthetic Substit Sig/Jan Start time Last Medication Dose Route Stop Time Status Admin Prednisone 60 MG DAILY 0600 09/19 0600 AC 09/19 PO 09/21 0601 0455 Insulin Human Lispro 10 UNIT AC 09/16 0730 AC 0 09/19 SUBQ 10/16 0729 0911 Insulin Glargine 20 UNIT BEDTIME 09/15 2100 AC 09/18 SUBQ 10/15 2059 2147 Insulin Human Lispro 0 AC HS 09/03 1630 AC 08/24 6 SUBQ 10/03 1629 1233 Glucagon 1 MG ASDIR PRN 09/03 1515 AC IM 10/03 1514 Local Anesthetics (Parenteral) Sig/Jan Start time Last Medication Dose Route Stop Time Status Admin Lidocaine 1 PATCH DAILY 09/03 09 AC 09/19 TOPICAL 10/03 0859 0913 Skin And Mucous Membrane Agent Sig/Jan Start time Last Medication Dose Route Stop Time Status Admin Zinc Oxide 1 APPLIC DAILY 09/04 899 AC 09/19 TOPICAL 10/04 0859 0915 Vitamins Sig/Jan Start time Last Medication Dose Route Stop Time Status Admin Folic Acid 2 MG DAILY 09/09 899 AC 09/19 PO 10/09 0859 0912 Multivitamins 1 TAB DAILY 09/09 899 AC 09/19 PO 10/09 0859 0912 Dose Instructions: (1)Sterile Water: DRESSING CHANGE Portions of this section wer enoch scribed by Jill Quintero on 09/19/22 at 1032 Treatment Prophylaxis Treatment Prophylaxis Lines: PICC Portions of this section wer enoch scribed by Jill Quintero on 09/19/22 at 1032 Diagnosis, Assessment Plan Free Text A P: *MRSA bacteremia -Initial blood cultures from 08/18/2022 positive for MRSA in 2 out of 2 sets. -Repeat blood cultures 08/21/2022 are already po sitive for MRSA in 2 out of 2 sets, suggesting persistent high-grade bacteremi a. -TTE 08/18/2022 negative for any obvious vegetat ions. -08/28 neg -JIMENA 09/02 neg *Prostatic abscess -s/p transrectal aspiration and unroofing on 08/26 -cx MRSA, citrobacter (r-cefazolin) Enterococcus raffinosus (S-amp,pcn, vancomycin), bacteriodes *ERIKA -nephrology following; worse nita; adjust abx (changed vancomycin and cefepime to merrem and daptomycin ) *Hyponatremia *Diabetic neuropathy *Diabetes mellitus type 2 *Hypertension *anemia 09/19 no changes overnight on Merrem and Dapotomycin til 09/24 creat improving swelling improved Consultants: cardiology, endocrinology, hospital ist, infectious disease, podiatry Portions of this section wer e scribed by Jill Quintero on 09/19/22 at 1554 at 2342 RPT #:[id number] END OF REPORT 2022-09-19 09:11:00-00:00 [facility] ([facility]) Gastroenterology Progress Note REPORT#:[id number] REPORT STATUS: Signed DATE:09/19/22 TIME: 910 PATIENT: KARMA ROWLAND UNIT #: [id number] ROOM/BED: [place] [address] : 63 AGE: 56 SEX: M ATTEND: Fredy Vences MD ADM AUTHOR: Kassie Avitia MD * ALL edits or amendments must be made on the el [employer]/computer document * Subjective HPI: Patient is a 56-year-old male with history of di abetes mellitus type 2 and hypertension who was initially admitted for alte red mental status and right- sided foot infection. 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 The p atient is anemic with current Hgb 7.1. He has received a total of 3 un its pRBCs during this hospitalization. KUB on 09/04 was negative for acute GI process. T he patient denies overt GIB, dark tarry stools, nausea, a bdominal pain, or vomiting. He has never had EGD or colonoscopy. 09/06: No complaints today. Hemoglobin stable. No overt GI bleed. Plan for colonoscopy and endoscopy on Thursday 09/07: No complaints today. No overt GI bleed. Pl anning for colonoscopy and endoscopy tomorrow 09/08: EGD mild gastritis. colonoscopy rectal eugenia yp s/p snare. No other abnormalities 09/09: doing well. Seen at the gym. No bleeding. 09/10: Doing well. No bleeding. tolerating diet. Movig bowels 09/11: doing well. States his leg swelling is bet ter. Tolerating diet. having normal BM 09/12: dooing well. doing work-out at the gym. To lerating diet. Normal BMs. Stable H/H 09/14-Sitting up in wheelchair, family at bedside . Denies n/v/abd pain/GIB 09/15: Doing well. H/H stable. No melena or BRBPR . No nausea or vomiting. Appetite is well 09/16: doing well. no complaints. eating well 09/17: stable H/H. No complaints. 09/18/22: H/H fluctuating but overall stable 09/19: H/H stable up to 8 today. No complaints. Objective Physical Exam HEENT: atraumatic, normocephalic Neck: full range of motion, non-tender Respiratory: symmetric expansion, no distress Abdomen: non-tender, normal bowel sounds, soft, no distention, no guarding Extremities: right BKA Considered stroke alert: no Skin: dry Diagnosis, Assessment Plan Free Text A P: 1. Positive FOBT-and anemia: The patient denies overt GIB, dark tarry stools, nausea, abdominal pain, or vomiting. He is not o n anticoagulation therapy. -Continue PPI. The patient has never had EGD or colonoscopy prior to this admission s/p EGD and colonoscopy. EGD showed mild gastrit is. Colonoscopy showed rectal polyp that was resected by snare. no evidence of bleeding. Pathology of polyp came back as tubular adenoma. recommend repeatin g colonoscopy in 5 years Anemia likely secondary to chronic kidney diseas e and mild oozing from his stump. Can consider video capsule endoscopy as outpt if evidence of dropping H/H H/H remains stable Consider reducing frequency of H/H check Will follow along Consultants: cardiology, endocrinology, hospital ist, infectious disease, podiatry at 0912 RPT #:[id number] END OF REPORT 2022-09-19 07:38:00-00:00 [facility] ([facility]) Nephrology Progress Note REPORT#:[id number] REPORT STATUS: Signed DATE:09/19/22 TIME: 0738 PATIENT: KARMA ROWLAND UNIT #: [id number] ROOM/BED: [place] [address] : 63 AGE: 56 SEX: M ATTEND: Fredy Vences MD ADM AUTHOR: Barrera Ramírez MD * ALL edits or amendments must be made on the [employer]/computer document * Subjective Chief complaint: Infected foot HPI: Patient seen and evaluated on 09/09/2022, note [facility], records reviewed and orders placed on 09/08/2022, 56-year-old male with history of diabetes mellitus type 2, hypertension and per ipheral vascular disease who was initially admitted to acute care with altered mental status and rig ht foot infection/gangrene, 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 Patient had persistent anemia requiring blood transfusion. H is fecal occult blood was positive and his creatinine was 1.2 and increase d to 1.4 today, laboratories today showed hemoglobin 8.5, platelet 231, blood count 9.1, sodium 135, potassium 4.6, CO2 22, BUN 22, creatinin e 1.4. Renal consult was requested for evaluation management of pako vated BUN and creatinine and if his decreased GFR is contributing to his anemia. Patient reports: Yes: complaints. Comments: Patient seen and evaluated, HPI no change from i nitial, feels okay. Review of Systems Constitutional: Reports: fatigue. Denies: chills, fever. Skin: Reports: swelling. Denies: abrasion, bruising, r west. Allergy/Immun: Denies: hives, itching. Eyes: Denies: redness, discharge. ENT: Denies: ear drainage, ear ringing. Respiratory: Denies: hemoptysis, SOB. Cardiovascular: Denies: chest pain. Objective General VS/I O: Vital Signs: Date Time Temp Pulse Resp B/P B/P Pulse O2 O2 F low FiO2 Mean Ox Delivery Rate 09/19 0655 36.9 90 17 138/68 91.6 98 Room air 09/19 0003 36.6 86 18 140/75 96.5 98 09/18 1935 36.5 83 16 135/67 89.9 98 Room air 09/18 1441 77 18 157/80 105.5 98 Room air 24 hour I O ending at 0700: 09/19 0700 09/18 1900 Intake Total 100 480 Output Total 2000 Balance 100 -1520 Intake, Oral 100 480 Number 2 Bowel Movements Number 0 Incontinent Voids Number Voids 0 Output, Urine 1999 PATIENT WEIGHT: Weight (lb): 167 Weight (oz): 12.35 Weight (kg): 76.100 Medications Active Meds + DC'd Last 24 Hrs Prednisone (predniSONE) 60 MG DAILY 0600 PO Daptomycin (CUBICIN 500MG) 500 MG Q24H IV Sodium Chloride (SODIUM CHLORIDE 0.9%) 50 ML Furosemide (LASIX 40 mg/4 mL INJECTION) 40 MG Q8 HR IV (DC) Hydralazine HCl (APRESOLINE) 75 MG Q8HR PO Hydralazine HCl (APRESOLINE) 50 MG Q8HR PO (DC) Daptomycin (CUBICIN 500MG) 500 MG Q48H IV (DC) Sodium Chloride (SODIUM CHLORIDE 0.9%) 50 ML Insulin Human Lispro (HUMALOG) 10 UNIT AC SUBQ Heparin Sodium (HEPARIN 5000 UNITS/ML) 5,000 UNI T Q12HR SUBQ (DC) Insulin Glargine (Semglee) 20 UNIT BEDTIME SUBQ Meropenem (MEROPENEM) 500 MG Q8H IV Sterile Water (WATER FOR INJECTION) 10 ML Carvedilol (COREG) 25 MG C BK DIN PO Gabapentin (NEURONTIN) 100 MG Q8HR PO Oxycodone/Acetaminophen (PERCOCET 5/325MG TAB) 2 TAB Q4H PRN PRN PO Folic Acid (FOLIC ACID) 2 MG DAILY PO Multivitamins (TAB-A-MOHAN) 1 TAB DAILY PO Furosemide (LASIX 20MG INJ) 20 MG BLOOD-DOSE BET WEEN IV (CKD) Sodium Chloride (SODIUM CHLORIDE) 10 ML ASDIR IV Pantoprazole Sodium (PROTONIX) 40 MG Q12HR IV Polyethylene Glycol (MIRALAX) 17 GM DAILY PO Sennosides (Senna Lax 8.6 MG TABLET) 8.6 MG MADALYN Y PO Sodium Chloride (SODIUM CHLORIDE) 10 ML ASDIR NV N IV Amitriptyline HCl (ELAVIL) 25 MG BEDTIME PO Zinc Oxide (ZINC OXIDE 30 GM OINTMENT) 1 APPLIC DAILY TOPICAL Sterile Water (WATER FOR IRRIGATION) DRESSING CH GELACIO ASDIR PRN IRR Insulin Human Lispro (HUMALOG) 0 AC HS SUBQ Dextrose/Water (DEXTROSE 10% IN WATER) 125 ML DIR PRN IV (CKD) Dextrose/Water (DEXTROSE 10% IN WATER) 250 ML DIR PRN IV (CKD) Glucagon (GLUCAGON) 1 MG ASDIR PRN IM Lidocaine (LIDODERM) 1 PATCH DAILY TOPICAL Acetaminophen (TYLENOL) 650 MG Q6H PRN PRN PO Bisacodyl (DULCOLAX) 10 MG DAILY PRN PRN RECTAL Docusate Sodium (COLACE) 100 MG Q12H PRN PRN PO Hydralazine HCl (APRESOLINE) 10 MG Q6H PRN PRN I V Ondansetron HCl (ZOFRAN) 4 MG Q6H PRN PRN IV Physical Exam General appearance: alert, no acute distress Head/eyes: atraumatic, normocephalic ENT: normal nose Neck: non-tender, supple/no meningismus Cardiovascular: normal heart sounds, no rub Respiratory: aerating well, symmetric expansion Abdomen: non-tender, soft Genitourinary: no flank pain Extremities: non-tender, no edema Musculoskeletal: no CVA tenderness, no tendernes s 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, 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 Considered stroke alert: no Skin: dry, intact Results Findings/Data: Laboratory Tests 0409/19 0501 0448 2151 1933 1611 Chemistry Sodium (134 - 147 mEq/L) 139 Potassium (3.4 - 5.0 mEq/L) 3.8 Chloride (100 - 108 mEq/L) 108 Carbon Dioxide (21 - 33 mEq/l) 22 Anion Gap (0 - 20) 13 BUN (7 - 18 mg/dL) 72 H Creatinine (0.6 - 1.3 mg/dL) 2.3 H Glomerular Filtr Rate (90 - 95) 32.1 L Glucose (70 - 110 mg/dL) 61 L POC Glucose (70 - 110 MG/DL) 162 H 103 70 118 H Calcium (8.0 - 10.5 mg/dL) 7.5 L Phosphorus (2.5 - 4.9 MG/DL) 5.0 H Magnesium (1.80 - 2.40 mg/dL) 1.69 L 09/18 09/18 09/18 09/18 09/17 1102 0906 0540 0505 1904 Chemistry Sodium (134 - 147 mEq/L) 138 Potassium (3.4 - 5.0 mEq/L) 4.1 Chloride (100 - 108 mEq/L) 108 Carbon Dioxide (21 - 33 mEq/l) 21 Anion Gap (0 - 20) 13 BUN (7 - 18 mg/dL) 66 H Creatinine (0.6 - 1.3 mg/dL) 2.2 H Glomerular Filtr Rate (90 - 95) 33.9 L Glucose (70 - 110 mg/dL) 201 H POC Glucose (70 - 110 MG/DL) 80 171 H 203 H 160 H Calcium (8.0 - 10.5 mg/dL) 7.5 L Phosphorus (2.5 - 4.9 MG/DL) 4.4 Magnesium (1.80 - 2.40 mg/dL) 1.83 09/17 09/17 09/17 09/17 09/17 1554 1027 0951 0601 0451 Chemistry POC Glucose (70 - 110 MG/DL) 75 256 H 287 H 286 H 273 H 09/17 09/16 09/16 09/16 09/16 0450 2345 1931 1549 1441 Chemistry Sodium (134 - 147 mEq/L) 136 Potassium (3.4 - 5.0 mEq/L) 4.5 Chloride (100 - 108 mEq/L) 107 Carbon Dioxide (21 - 33 mEq/l) 21 Anion Gap (0 - 20) 12 BUN (7 - 18 mg/dL) 66 H Creatinine (0.6 - 1.3 mg/dL) 2.4 H Glomerular Filtr Rate (90 - 95) 30.5 L Glucose (70 - 110 mg/dL) 285 H POC Glucose (70 - 110 MG/DL) 291 H 219 H 62 L 6 0 L Calcium (8.0 - 10.5 mg/dL) 7.4 L Phosphorus (2.5 - 4.9 MG/DL) 4.5 Magnesium (1.80 - 2.40 mg/dL) 1.97 09/16 1110 Chemistry POC Glucose (70 - 110 MG/DL) 148 H Laboratory Tests 09/18 09/17 0505 0450 Hematology WBC (4.5 - 11.0 x10 3/uL) 10.6 8.9 RBC (4.00 - 5.60 x10 6/uL) 2.67 L 2.83 L Hgb (12.5 - 16.9 g/dL) 7.6 L 8.1 L Hct (37.5 - 50.7 %) 23.7 L 24.9 L MCV (81.0 - 99.0 fL) 88.8 88.0 MCH (27.0 - 33.0 pg) 28.5 28.6 MCHC (33.0 - 37.0 g/dL) 32.1 L 32.5 L RDW (11.5 - 14.5 %) 14.8 H 14.6 H Plt Count (150 - 400 x10 3/uL) 341 374 MPV (7.0 - 9.0 fL) 9.2 H 9.6 H Neut % (Auto) (56.0 - 77.0 %) 74.6 85.2 H Lymph % (Auto) (14.0 - 32.0 %) 17.4 10.2 L Boundary % (Auto) (4.8 - 9.0 %) 6.9 2.9 L Eos % (Auto) (0.3 - 3.7 %) 0.1 L 0.0 L Baso % (Auto) (0.0 - 2.0 %) 0.1 0.1 Neut # (Auto) (2.0 - 7.6 x10 3/uL) 7.91 H 7.58 Lymph # (Auto) (1.0 - 3.8 x10 3/uL) 1.85 0.91 L Boundary # (Auto) (0.1 - 0.8 x10 3/uL) 0.73 0.26 Eos # (Auto) (0.0 - 0.2 x10 3/uL) 0.01 0.00 Baso # (Auto) (0.0 - 0.2 x10 3/uL) 0.01 0.01 Abs Immat Gran (auto) (0.00 - 0.03 x10 3/uL) 0. 10 H 0.14 H Add Manual Diff NO NO Immature Gran % (0.0 - 2.0 %) 0.9 1.6 Nucleated RBC % (0 - 0 %) 0.0 0.0 Nucleated RBCs # (Man) (0.0 - 0.1 x10 3/uL) 0.0 0 0.00 Laboratory Tests 09/19 09/19 09/18 09/18 09/18 0501 0448 2151 1933 1611 Chemistry Sodium (134 - 147 mEq/L) 139 Potassium (3.4 - 5.0 mEq/L) 3.8 Chloride (100 - 108 mEq/L) 108 Carbon Dioxide (21 - 33 mEq/l) 22 Anion Gap (0 - 20) 13 BUN (7 - 18 mg/dL) 72 H Creatinine (0.6 - 1.3 mg/dL) 2.3 H Glomerular Filtr Rate (90 - 95) 32.1 L Glucose (70 - 110 mg/dL) 61 L POC Glucose (70 - 110 MG/DL) 162 H 103 70 118 H Calcium (8.0 - 10.5 mg/dL) 7.5 L Phosphorus (2.5 - 4.9 MG/DL) 5.0 H Magnesium (1.80 - 2.40 mg/dL) 1.69 L 09/18 09/18 1102 0906 Chemistry POC Glucose (70 - 110 MG/DL) 80 171 H Diagnosis, Assessment Plan Free Text A P: Patient seen and evaluated, discussed with care team, images and laboratories reviewed. Diabetes mellitus: Insulin: Monitor bloo d sugar closely and adjust medications as needed, followed by endocrinology. Hypertension: Blood pressure is not well controlled, increase Coreg to 12.5 mg p.o. 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 We will check serum immu nofixation. Acute kidney injury: We will check renal bladder ultrasound, check postvoid residual, check urine protein creatinine ratio Hypomagnesemia: We will supplement 09/10/2022 laboratory this mo rning showed sodium 135, potassium 4.2, CO2 21, BUN 25, creatinine 1.9 continues to worsen, etiology unclear, however his development some eosinophili a not sure if he is developing AIN, suggest changing cefepime to a different class of antibiotic if p ossible, will check renal bladder ultrasound 09/11/2022 laboratory this mo rning showed sodium 134, potassium 4.3, CO2 22, BUN 26, creatinine 2 up from 1.9, hopefully creatini ne is plateauing, renal ultrasound negative. 09/12/2022 laboratory this mo rning showed sodium 134, potassium 4.2, CO2 20, BUN 31, creatinine 2.4 continues to worsen, discussed with ID, AIN is probably the etiology of the unexplained deterioration of his renal function, antibiotics to be adjusted by infectious disease, will give Solu-Medrol 125 mg IV daily for 3 days. Significant lower extremity edema, will st art Lasix 20 mg p.o. twice daily. 23: pt was seen and examined. Very thirsty. serum creatinine is worsening today. Vancomycin was stopped yesterday and Solu medrol was started. Mild hypovolemic hyponatremia. Will DC lasix and monitor his renal functions. BP is well controlled. 23: pt was seen and exa rennyd. Feels better but still thirsty. I stopped his lasix. will start NS at 75 c c for one Leter only. serum creatinine is improving. Received three doses of Solu Medrol a well. BP i s on the higher side, likely secondary to steroids. will monitor for now. mild hypovelmic hyponatremia. also could be secondary to hyperglycemia. 09/15/2022 we will give additional dose of Solu-M edrol 125 mg IV today, laboratory this morning show ed sodium 132, potassium 4.7, CO2 17, chloride 105, BUN 38, creatinine 2.9, glucose 312, hem oglobin 8.2, platelet 341, blood count 8.7, needs better blood sugar control, if creati nine does not start improving the next couple days will plan for kidney biopsy 09/16/2022 laboratory this mo rning showed sodium 135, potassium 4.5, CO2 20, BUN 60, creatinine 2.7, better down from 2.9, hemogl obin 7.6, platelet 360, blood count 9.5, will give prednisone 80 mg p.o. today , blood pressure is elevated, will add hydralazine 25 mg p .o. 3 times daily, scrotal and LE swelling will give Lasix 40 mg IV x 3 09/17/2022 blood pressure sti ll elevated, will increase hydralazine to 50 mg p.o. 3 times daily, will give 80 mg of prednisone today, urine output with Lasix 4125 , laboratory this morning showed sodium 136, pot assium 4.5, CO2 21, BUN 66, creatinine 2.4 down from 2.7, will give 3 more doses of IV Lasix 40 mg every 8 hours 09/18/2022 laboratory this mo rning showed sodium 138, potassium 4.1, CO2 21, BUN 66, creatinine 2.2 continues to improve, urine o utput 2.7 L, hemoglobin 7.6, platelet 341, blood count 10.6, will give Lasix 40 mg IV every 8 for 3 doses, start prednisone 60 mg p.o. daily for 3 days, increase hydralazine to 75 mg p.o. 3 times daily. 09/19/2022 blood pressure better, sodium 139, pot assium 3.8, CO2 22, BUN 72 up from 66, creatinine 2.3 up from 2.2, will hold o ff diuretics, urine output reported 2 L, magnesium 1.69 we will give magnesium sulfate 2 g IV x1, continue prednisone. Consultants: cardiology, endocrinology, [facility], infectious disease, podiatry Electronically Signed by Barrera Ramírez MD on at 0920 [facility] #:[id number] END OF REPORT 2022-09-18 17:41:00-00:00 [facility] ([facility]) Endocrinology Progress Note REPORT#:[id number] REPORT STATUS: Signed DATE:09/18/22 TIME: 174 PATIENT: KARMA ROWLAND UNIT #: [id number] ROOM/BED: [place] [id number] : 61 AGE: 56 SEX: M ATTEND: Mj Vences MD ADM AUTHOR: Braxton Chapin MD * ALL edits or amendments must be made on the [employer] document * Subjective Patient reports: no complaints Objective General VS: Last Documented: Result Date Time Pulse Ox 98 09/18 1441 B/P 157/80 09/18 1441 B/P Mean 105.5 09/18 1441 O2 Delivery Room air 09/18 1441 Pulse 77 09/18 1441 Resp 18 09/18 1441 Temp 36.7 09/18 0649 O2 Flow Rate 2 09/08 1322 PATIENT WEIGHT: Weight (lb): 167 Weight (oz): 12.35 Weight (kg): 76.100 Medications: Active Meds + DC'd Last 24 Hrs Prednisone (predniSONE) 60 MG DAILY 0600 PO Daptomycin (CUBICIN 500MG) 500 MG Q24H IV Sodium Chloride (SODIUM CHLORIDE 0.9%) 50 ML Furosemide (LASIX 40 mg/4 mL INJECTION) 40 MG Q8 HR IV Hydralazine HCl (APRESOLINE) 75 MG Q8HR PO Furosemide (LASIX 40 mg/4 mL INJECTION) 40 MG Q8 HR IV (DC) Hydralazine HCl (APRESOLINE) 50 MG Q8HR PO (DC) Daptomycin (CUBICIN 500MG) 500 MG Q48H IV (DC) Sodium Chloride (SODIUM CHLORIDE 0.9%) 50 ML Insulin Human Lispro (HUMALOG) 10 UNIT AC SUBQ Heparin Sodium (HEPARIN 5000 UNITS/ML) 5,000 UNI T Q12HR SUBQ (DC) Insulin Glargine (Semglee) 20 UNIT BEDTIME SUBQ Meropenem (MEROPENEM) 500 MG Q8H IV Sterile Water (WATER FOR INJECTION) 10 ML Carvedilol (COREG) 25 MG C BK DIN PO Gabapentin (NEURONTIN) 100 MG Q8HR PO Oxycodone/Acetaminophen (PERCOCET 5/325MG TAB) 2 TAB Q4H PRN PRN PO Folic Acid (FOLIC ACID) 2 MG DAILY PO Multivitamins (TAB-A-MOHAN) 1 TAB DAILY PO Furosemide (LASIX 20MG INJ) 20 MG BLOOD-DOSE BET WEEN IV (CKD) Sodium Chloride (SODIUM CHLORIDE) 10 ML ASDIR IV Pantoprazole Sodium (PROTONIX) 40 MG Q12HR IV Polyethylene Glycol (MIRALAX) 17 GM DAILY PO Sennosides (Senna Lax 8.6 MG TABLET) 8.6 MG MADALYN Y PO Sodium Chloride (SODIUM CHLORIDE) 10 ML ASDIR NV N IV Amitriptyline HCl (ELAVIL) 25 MG BEDTIME PO Zinc Oxide (ZINC OXIDE 30 GM OINTMENT) 1 APPLIC DAILY TOPICAL Sterile Water (WATER FOR IRRIGATION) DRESSING CH GELACIO ASDIR PRN IRR Insulin Human Lispro (HUMALOG) 0 AC HS SUBQ Dextrose/Water (DEXTROSE 10% IN WATER) 125 ML DIR PRN IV (CKD) Dextrose/Water (DEXTROSE 10% IN WATER) 250 ML DIR PRN IV (CKD) Glucagon (GLUCAGON) 1 MG ASDIR PRN IM Lidocaine (LIDODERM) 1 PATCH DAILY TOPICAL Acetaminophen (TYLENOL) 650 MG Q6H PRN PRN PO Bisacodyl (DULCOLAX) 10 MG DAILY PRN PRN RECTAL Docusate Sodium (COLACE) 100 MG Q12H PRN PRN PO Hydralazine HCl (APRESOLINE) 10 MG Q6H PRN PRN I V Ondansetron HCl (ZOFRAN) 4 MG Q6H PRN PRN IV Physical Exam General appearance: alert, awake Diagnosis, Assessment Plan Hospital course to date: Laboratory Tests: 09/18 09/18 09/18 09/18 1611 1102 0906 0540 Chemistry POC Glucose (70 - 110 MG/DL) 118 H 80 171 H 203 H 09/18 09/17 0505 1904 Chemistry Sodium (134 - 147 mEq/L) 138 Potassium (3.4 - 5.0 mEq/L) 4.1 Chloride (100 - 108 mEq/L) 108 Carbon Dioxide (21 - 33 mEq/l) 21 Anion Gap (0 - 20) 13 BUN (7 - 18 mg/dL) 66 H Creatinine (0.6 - 1.3 mg/dL) 2.2 H Glomerular Filtr Rate (90 - 95) 33.9 L Glucose (70 - 110 mg/dL) 201 H POC Glucose (70 - 110 MG/DL) 160 H Calcium (8.0 - 10.5 mg/dL) 7.5 L Phosphorus (2.5 - 4.9 MG/DL) 4.4 Magnesium (1.80 - 2.40 mg/dL) 1.83 Hematology WBC (4.5 - 11.0 x10 3/uL) 10.6 RBC (4.00 - 5.60 x10 6/uL) 2.67 L Hgb (12.5 - 16.9 g/dL) 7.6 L Hct (37.5 - 50.7 %) 23.7 L MCV (81.0 - 99.0 fL) 88.8 MCH (27.0 - 33.0 pg) 28.5 MCHC (33.0 - 37.0 g/dL) 32.1 L RDW (11.5 - 14.5 %) 14.8 H Plt Count (150 - 400 x10 3/uL) 341 MPV (7.0 - 9.0 fL) 9.2 H Neut % (Auto) (56.0 - 77.0 %) 74.6 Lymph % (Auto) (14.0 - 32.0 %) 17.4 Boundary % (Auto) (4.8 - 9.0 %) 6.9 Eos % (Auto) (0.3 - 3.7 %) 0.1 L Baso % (Auto) (0.0 - 2.0 %) 0.1 Neut # (Auto) (2.0 - 7.6 x10 3/uL) 7.91 H Lymph # (Auto) (1.0 - 3.8 x10 3/uL) 1.85 Boundary # (Auto) (0.1 - 0.8 x10 3/uL) 0.73 Eos # (Auto) (0.0 - 0.2 x10 3/uL) 0.01 Baso # (Auto) (0.0 - 0.2 x10 3/uL) 0.01 Abs Immat Gran (auto) (0.00 - 0.03 x10 3/uL) 0. 10 H Add Manual Diff NO Immature Gran % (0.0 - 2.0 %) 0.9 Nucleated RBC % (0 - 0 %) 0.0 Nucleated RBCs # (Man) (0.0 - 0.1 x10 3/uL) 0.0 0 Laboratory Tests: 09/17 09/17 09/17 09/17 09/17 1554 1027 0951 0601 0451 Chemistry POC Glucose (70 - 110 MG/DL) 75 256 H 287 H 286 H 273 H 09/17 09/16 09/16 0450 1589 1931 Chemistry Sodium (134 - 147 mEq/L) 136 Potassium (3.4 - 5.0 mEq/L) 4.5 Chloride (100 - 108 mEq/L) 107 Carbon Dioxide (21 - 33 mEq/l) 21 Anion Gap (0 - 20) 12 BUN (7 - 18 mg/dL) 66 H Creatinine (0.6 - 1.3 mg/dL) 2.4 H Glomerular Filtr Rate (90 - 95) 30.5 L Glucose (70 - 110 mg/dL) 285 H POC Glucose (70 - 110 MG/DL) 291 H 219 H Calcium (8.0 - 10.5 mg/dL) 7.4 L Phosphorus (2.5 - 4.9 MG/DL) 4.5 Magnesium (1.80 - 2.40 mg/dL) 1.97 Hematology WBC (4.5 - 11.0 x10 3/uL) 8.9 RBC (4.00 - 5.60 x10 6/uL) 2.83 L Hgb (12.5 - 16.9 g/dL) 8.1 L Hct (37.5 - 50.7 %) 24.9 L MCV (81.0 - 99.0 fL) 88.0 MCH (27.0 - 33.0 pg) 28.6 MCHC (33.0 - 37.0 g/dL) 32.5 L RDW (11.5 - 14.5 %) 14.6 H Plt Count (150 - 400 x10 3/uL) 374 MPV (7.0 - 9.0 fL) 9.6 H Neut % (Auto) (56.0 - 77.0 %) 85.2 H Lymph % (Auto) (14.0 - 32.0 %) 10.2 L Boundary % (Auto) (4.8 - 9.0 %) 2.9 L Eos % (Auto) (0.3 - 3.7 %) 0.0 L Baso % (Auto) (0.0 - 2.0 %) 0.1 Neut # (Auto) (2.0 - 7.6 x10 3/uL) 7.58 Lymph # (Auto) (1.0 - 3.8 x10 3/uL) 0.91 L Boundary # (Auto) (0.1 - 0.8 x10 3/uL) 0.26 Eos # (Auto) (0.0 - 0.2 x10 3/uL) 0.00 Baso # (Auto) (0.0 - 0.2 x10 3/uL) 0.01 Abs Immat Gran (auto) (0.00 - 0.03 x10 3/uL) 0. 14 H Add Manual Diff NO Immature Gran % (0.0 - 2.0 %) 1.6 Nucleated RBC % (0 - 0 %) 0.0 Nucleated RBCs # (Man) (0.0 - 0.1 x10 3/uL) 0.0 0 Laboratory Tests: 09/16 09/16 09/16 09/16 1549 1441 1110 0553 Chemistry POC Glucose (70 - 110 MG/DL) 62 L 60 L 148 H 19 5 H 09/16 09/15 0455 1937 Chemistry Sodium (134 - 147 mEq/L) 135 Potassium (3.4 - 5.0 mEq/L) 4.5 Chloride (100 - 108 mEq/L) 108 Carbon Dioxide (21 - 33 mEq/l) 20 L Anion Gap (0 - 20) 11 BUN (7 - 18 mg/dL) 60 H Creatinine (0.6 - 1.3 mg/dL) 2.7 H Glomerular Filtr Rate (90 - 95) 26.5 L Glucose (70 - 110 mg/dL) 175 H POC Glucose (70 - 110 MG/DL) 124 H Calcium (8.0 - 10.5 mg/dL) 7.5 L Phosphorus (2.5 - 4.9 MG/DL) 4.6 Magnesium (1.80 - 2.40 mg/dL) 1.93 Hematology WBC (4.5 - 11.0 x10 3/uL) 9.5 RBC (4.00 - 5.60 x10 6/uL) 2.70 L Hgb (12.5 - 16.9 g/dL) 7.6 L Hct (37.5 - 50.7 %) 23.7 L MCV (81.0 - 99.0 fL) 87.8 MCH (27.0 - 33.0 pg) 28.1 MCHC (33.0 - 37.0 g/dL) 32.1 L RDW (11.5 - 14.5 %) 14.6 H Plt Count (150 - 400 x10 3/uL) 360 MPV (7.0 - 9.0 fL) 9.6 H Neut % (Auto) (56.0 - 77.0 %) 73.4 Lymph % (Auto) (14.0 - 32.0 %) 18.6 Boundary % (Auto) (4.8 - 9.0 %) 6.7 Eos % (Auto) (0.3 - 3.7 %) 0.2 L Baso % (Auto) (0.0 - 2.0 %) 0.1 Neut # (Auto) (2.0 - 7.6 x10 3/uL) 6.99 Lymph # (Auto) (1.0 - 3.8 x10 3/uL) 1.77 Boundary # (Auto) (0.1 - 0.8 x10 3/uL) 0.64 Eos # (Auto) (0.0 - 0.2 x10 3/uL) 0.02 Baso # (Auto) (0.0 - 0.2 x10 3/uL) 0.01 Abs Immat Gran (auto) (0.00 - 0.03 x10 3/uL) 0. 10 H Add Manual Diff NO Immature Gran % (0.0 - 2.0 %) 1.0 Nucleated RBC % (0 - 0 %) 0.0 Nucleated RBCs # (Man) (0.0 - 0.1 x10 3/uL) 0.0 0 Laboratory Tests: 09/15 09/15 09/15 09/15 1640 1304 1154 0519 Chemistry POC Glucose (70 - 110 MG/DL) 137 H 126 H 309 H Urines Urine Color (YEL/STRAW) YELLOW Urine Appearance (CLEAR) SL CLOUDY Urine pH (5.0 - 7.0) 5.0 Ur Specific [place] (1.005 - 1.030) 1.013 Urine Protein (NEGATIVE) 2+ H Urine Glucose (UA) (NEGATIVE) 2+ H Urine Ketones (NEGATIVE) NEGATIVE Urine Blood (NEGATIVE) 2+ H Urine Nitrite (NEGATIVE) NEGATIVE Urine Bilirubin (NEGATIVE) NEGATIVE Urine Urobilinogen (0.2 - 1.0 mg/dL) 0.2 Ur Leukocyte Esterase (NEGATIVE) TRACE H Urine RBC (0 - 3 RBC/HPF) 21-50 Urine WBC (0 - 3 WBC/HPF) 4-9 H Ur Squamous Epith Cells (NONE SEEN /HPF) 0-5 Ur Transition Epith Cell (NONE SEEN /HPF) TRACE Urine Bacteria (NONE SEEN /HPF) TRACE Granular Casts (NONE /LPF) 3-5 Urine Mucus (NONE SEEN /LPF) TRACE Ur Random Creatinine (mg/dL) 52.5 U Random Total Protein (mg/dL) 283 09/15 09/14 0515 1931 Chemistry Sodium (134 - 147 mEq/L) 132 L Potassium (3.4 - 5.0 mEq/L) 4.7 Chloride (100 - 108 mEq/L) 105 Carbon Dioxide (21 - 33 mEq/l) 17 L Anion Gap (0 - 20) 15 BUN (7 - 18 mg/dL) 38 H Creatinine (0.6 - 1.3 mg/dL) 2.9 H Glomerular Filtr Rate (90 - 95) 24.3 L Glucose (70 - 110 mg/dL) 312 H POC Glucose (70 - 110 MG/DL) 193 H Calcium (8.0 - 10.5 mg/dL) 7.2 L Phosphorus (2.5 - 4.9 MG/DL) 5.7 H Magnesium (1.80 - 2.40 mg/dL) 1.96 Total Creatine Kinase (46 - 171 Units/L) 26 L Albumin (3.4 - 5.0 g/dL) 1.50 L Prealbumin (16.0 - 40.0 mg/dL) 8.0 L Hematology WBC (4.5 - 11.0 x10 3/uL) 8.7 RBC (4.00 - 5.60 x10 6/uL) 2.88 L Hgb (12.5 - 16.9 g/dL) 8.2 L Hct (37.5 - 50.7 %) 26.5 L MCV (81.0 - 99.0 fL) 92.0 MCH (27.0 - 33.0 pg) 28.5 MCHC (33.0 - 37.0 g/dL) 30.9 L RDW (11.5 - 14.5 %) 14.3 Plt Count (150 - 400 x10 3/uL) 341 MPV (7.0 - 9.0 fL) 9.1 H Neut % (Auto) (56.0 - 77.0 %) 84.9 H Lymph % (Auto) (14.0 - 32.0 %) 11.3 L Boundary % (Auto) (4.8 - 9.0 %) 3.2 L Eos % (Auto) (0.3 - 3.7 %) 0.0 L Baso % (Auto) (0.0 - 2.0 %) 0.1 Neut # (Auto) (2.0 - 7.6 x10 3/uL) 7.35 Lymph # (Auto) (1.0 - 3.8 x10 3/uL) 0.98 L Boundary # (Auto) (0.1 - 0.8 x10 3/uL) 0.28 Eos # (Auto) (0.0 - 0.2 x10 3/uL) 0.00 Baso # (Auto) (0.0 - 0.2 x10 3/uL) 0.01 Abs Immat Gran (auto) (0.00 - 0.03 x10 3/uL) 0. 04 H Add Manual Diff NO Immature Gran % (0.0 - 2.0 %) 0.5 Nucleated RBC % (0 - 0 %) 0.0 Nucleated RBCs # (Man) (0.0 - 0.1 x10 3/uL) 0.0 0 Microbiology: Date/Time Procedure - Status Source Growth 09/15 0415 MRSA DNA Surveillance Screen - COMP NASAL Laboratory Tests: 09/14 09/14 09/14 09/14 09/13 1130 0786 9942 6548 0069 Chemistry Sodium (134 - 147 mEq/L) 132 L Potassium (3.4 - 5.0 mEq/L) 4.4 Chloride (100 - 108 mEq/L) 104 Carbon Dioxide (21 - 33 mEq/l) 19 L Anion Gap (0 - 20) 14 BUN (7 - 18 mg/dL) 38 H Creatinine (0.6 - 1.3 mg/dL) 2.8 H Glomerular Filtr Rate (90 - 95) 25.4 L Glucose (70 - 110 mg/dL) 325 H POC Glucose (70 - 110 MG/DL) 137 H 290 H 334 H 248 H Calcium (8.0 - 10.5 mg/dL) 7.5 L Hematology WBC (4.5 - 11.0 x10 3/uL) 9.5 RBC (4.00 - 5.60 x10 6/uL) 2.83 L Hgb (12.5 - 16.9 g/dL) 8.0 L Hct (37.5 - 50.7 %) 25.3 L MCV (81.0 - 99.0 fL) 89.4 MCH (27.0 - 33.0 pg) 28.3 MCHC (33.0 - 37.0 g/dL) 31.6 L RDW (11.5 - 14.5 %) 14.0 Plt Count (150 - 400 x10 3/uL) 322 MPV (7.0 - 9.0 fL) 9.3 H Neut % (Auto) (56.0 - 77.0 %) 80.2 H Lymph % (Auto) (14.0 - 32.0 %) 13.9 L Boundary % (Auto) (4.8 - 9.0 %) 5.1 Eos % (Auto) (0.3 - 3.7 %) 0.0 L Baso % (Auto) (0.0 - 2.0 %) 0.1 Neut # (Auto) (2.0 - 7.6 x10 3/uL) 7.58 Lymph # (Auto) (1.0 - 3.8 x10 3/uL) 1.31 Boundary # (Auto) (0.1 - 0.8 x10 3/uL) 0.48 Eos # (Auto) (0.0 - 0.2 x10 3/uL) 0.00 Baso # (Auto) (0.0 - 0.2 x10 3/uL) 0.01 Abs Immat Gran (auto) (0.00 - 0.03 0.07 H x10 3/uL) Add Manual Diff NO Immature Gran % (0.0 - 2.0 %) 0.7 Nucleated RBC % (0 - 0 %) 0.0 Nucleated RBCs # (Man) (0.0 - 0.1 0.00 x10 3/uL) 09/13 1629 Chemistry POC Glucose (70 - 110 MG/DL) 130 H Laboratory Tests: 09/13 09/13 09/13 09/12 1105 0595 0456 2016 Chemistry Sodium (134 - 147 mEq/L) 133 L Potassium (3.4 - 5.0 mEq/L) 4.6 Chloride (100 - 108 mEq/L) 107 Carbon Dioxide (21 - 33 mEq/l) 19 L Anion Gap (0 - 20) 12 BUN (7 - 18 mg/dL) 28 H Creatinine (0.6 - 1.3 mg/dL) 2.7 H Glomerular Filtr Rate (90 - 95) 26.5 L Glucose (70 - 110 mg/dL) 241 H POC Glucose (70 - 110 MG/DL) 307 H 258 H 223 H Calcium (8.0 - 10.5 mg/dL) 7.8 L Phosphorus (2.5 - 4.9 MG/DL) 4.7 Magnesium (1.80 - 2.40 mg/dL) 1.92 Hematology WBC (4.5 - 11.0 x10 3/uL) 9.8 RBC (4.00 - 5.60 x10 6/uL) 2.90 L Hgb (12.5 - 16.9 g/dL) 8.2 L Hct (37.5 - 50.7 %) 25.4 L MCV (81.0 - 99.0 fL) 87.6 MCH (27.0 - 33.0 pg) 28.3 MCHC (33.0 - 37.0 g/dL) 32.3 L RDW (11.5 - 14.5 %) 13.7 Plt Count (150 - 400 x10 3/uL) 288 MPV (7.0 - 9.0 fL) 10.0 H Neut % (Auto) (56.0 - 77.0 %) 85.3 H Lymph % (Auto) (14.0 - 32.0 %) 10.4 L Boundary % (Auto) (4.8 - 9.0 %) 3.5 L Eos % (Auto) (0.3 - 3.7 %) 0.0 L Baso % (Auto) (0.0 - 2.0 %) 0.1 Neut # (Auto) (2.0 - 7.6 x10 3/uL) 8.34 H Lymph # (Auto) (1.0 - 3.8 x10 3/uL) 1.02 Boundary # (Auto) (0.1 - 0.8 x10 3/uL) 0.34 Eos # (Auto) (0.0 - 0.2 x10 3/uL) 0.00 Baso # (Auto) (0.0 - 0.2 x10 3/uL) 0.01 Abs Immat Gran (auto) (0.00 - 0.03 x10 3/uL) 0. 07 H Add Manual Diff NO Immature Gran % (0.0 - 2.0 %) 0.7 Nucleated RBC % (0 - 0 %) 0.0 Nucleated RBCs # (Man) (0.0 - 0.1 x10 3/uL) 0.0 0 Microbiology: Date/Time Procedure - Status Source Growth 09/13 045 MRSA DNA Surveillance Screen - RECD NASAL Laboratory Tests: 09/12 09/12 09/12 09/12 1606 1115 1105 0604 Chemistry POC Glucose (70 - 110 MG/DL) 150 H 68 L 170 H B-Natriuretic Peptide (0 - 100 PG/ML) 297.0 H Hematology Eos Smear Total Cells NONE SEEN 09/12 09/11 09/11 0420 2130 1933 Chemistry Sodium (134 - 147 mEq/L) 134 Potassium (3.4 - 5.0 mEq/L) 4.2 Chloride (100 - 108 mEq/L) 106 Carbon Dioxide (21 - 33 mEq/l) 20 L Anion Gap (0 - 20) 12 BUN (7 - 18 mg/dL) 31 H Creatinine (0.6 - 1.3 mg/dL) 2.4 H Glomerular Filtr Rate (90 - 95) 30.5 L Glucose (70 - 110 mg/dL) 167 H POC Glucose (70 - 110 MG/DL) 150 H Calcium (8.0 - 10.5 mg/dL) 8.2 Phosphorus (2.5 - 4.9 MG/DL) 4.4 Magnesium (1.80 - 2.40 mg/dL) 1.86 Hematology WBC (4.5 - 11.0 x10 3/uL) 8.8 RBC (4.00 - 5.60 x10 6/uL) 2.73 L Hgb (12.5 - 16.9 g/dL) 7.7 L Hct (37.5 - 50.7 %) 23.7 L MCV (81.0 - 99.0 fL) 86.8 MCH (27.0 - 33.0 pg) 28.2 MCHC (33.0 - 37.0 g/dL) 32.5 L RDW (11.5 - 14.5 %) 13.8 Plt Count (150 - 400 x10 3/uL) 248 MPV (7.0 - 9.0 fL) 9.7 H Neut % (Auto) (56.0 - 77.0 %) 72.3 Lymph % (Auto) (14.0 - 32.0 %) 15.0 Boundary % (Auto) (4.8 - 9.0 %) 7.9 Eos % (Auto) (0.3 - 3.7 %) 3.8 H Baso % (Auto) (0.0 - 2.0 %) 0.3 Neut # (Auto) (2.0 - 7.6 x10 3/uL) 6.34 Lymph # (Auto) (1.0 - 3.8 x10 3/uL) 1.31 Boundary # (Auto) (0.1 - 0.8 x10 3/uL) 0.69 Eos # (Auto) (0.0 - 0.2 x10 3/uL) 0.33 H Baso # (Auto) (0.0 - 0.2 x10 3/uL) 0.03 Abs Immat Gran (auto) (0.00 - 0.03 x10 3/uL) 0. 06 H Add Manual Diff NO Immature Gran % (0.0 - 2.0 %) 0.7 Nucleated RBC % (0 - 0 %) 0.0 Nucleated RBCs # (Man) (0.0 - 0.1 x10 3/uL) 0.0 0 Toxicology Random Vancomycin (mcg/mL) 16.7 Laboratory Tests: 09/11 09/11 09/11 09/11 09/11 1532 1445 1114 0541 0445 Chemistry Sodium (134 - 147 mEq/L) 134 Potassium (3.4 - 5.0 mEq/L) 4.3 Chloride (100 - 108 mEq/L) 105 Carbon Dioxide (21 - 33 mEq/l) 22 Anion Gap (0 - 20) 12 BUN (7 - 18 mg/dL) 26 H Creatinine (0.6 - 1.3 mg/dL) 2.0 H Glomerular Filtr Rate (90 - 95) 38.0 L Glucose (70 - 110 mg/dL) 109 POC Glucose (70 - 110 MG/DL) 93 109 127 H Calcium (8.0 - 10.5 mg/dL) 8.3 Phosphorus (2.5 - 4.9 MG/DL) 4.7 Magnesium (1.80 - 2.40 mg/dL) 1.90 Hematology WBC (4.5 - 11.0 x10 3/uL) 7.9 RBC (4.00 - 5.60 x10 6/uL) 2.94 L Hgb (12.5 - 16.9 g/dL) 8.3 L Hct (37.5 - 50.7 %) 25.8 L MCV (81.0 - 99.0 fL) 87.8 MCH (27.0 - 33.0 pg) 28.2 MCHC (33.0 - 37.0 g/dL) 32.2 L RDW (11.5 - 14.5 %) 13.7 Plt Count (150 - 400 x10 3/uL) 269 MPV (7.0 - 9.0 fL) 9.8 H Neut % (Auto) (56.0 - 77.0 %) 67.9 Lymph % (Auto) (14.0 - 32.0 %) 16.1 Boundary % (Auto) (4.8 - 9.0 %) 9.1 H Eos % (Auto) (0.3 - 3.7 %) 5.6 H Baso % (Auto) (0.0 - 2.0 %) 0.5 Neut # (Auto) (2.0 - 7.6 x10 3/uL) 5.35 Lymph # (Auto) (1.0 - 3.8 x10 3/uL) 1.27 Boundary # (Auto) (0.1 - 0.8 x10 3/uL) 0.72 Eos # (Auto) (0.0 - 0.2 x10 3/uL) 0.44 H Baso # (Auto) (0.0 - 0.2 x10 3/uL) 0.04 Abs Immat Gran (auto) (0.00 - 0.03 0.06 H x10 3/uL) Add Manual Diff NO Immature Gran % (0.0 - 2.0 %) 0.8 Nucleated RBC % (0 - 0 %) 0.0 Nucleated RBCs # (Man) (0.0 - 0.1 0.00 x10 3/uL) Toxicology Random Vancomycin (mcg/mL) 18.3 09/10 1851 Chemistry POC Glucose (70 - 110 MG/DL) 97 Laboratory Tests: 09/10 09/10 09/10 09/10 09/10 1715 1625 1430 1007 0545 Chemistry Sodium (134 - 147 mEq/L) 135 Potassium (3.4 - 5.0 mEq/L) 4.2 Chloride (100 - 108 mEq/L) 107 Carbon Dioxide (21 - 33 mEq/l) 21 Anion Gap (0 - 20) 11 BUN (7 - 18 mg/dL) 25 H Creatinine (0.6 - 1.3 mg/dL) 1.9 H Glomerular Filtr Rate (90 - 95) 40.4 L Glucose (70 - 110 mg/dL) 156 H POC Glucose (70 - 110 MG/DL) 75 58 L 213 H Calcium (8.0 - 10.5 mg/dL) 8.3 Phosphorus (2.5 - 4.9 MG/DL) 4.6 Magnesium (1.80 - 2.40 mg/dL) 1.89 Hematology WBC (4.5 - 11.0 x10 3/uL) 8.6 RBC (4.00 - 5.60 x10 6/uL) 3.08 L Hgb (12.5 - 16.9 g/dL) 8.6 L Hct (37.5 - 50.7 %) 26.7 L MCV (81.0 - 99.0 fL) 86.7 MCH (27.0 - 33.0 pg) 27.9 MCHC (33.0 - 37.0 g/dL) 32.2 L RDW (11.5 - 14.5 %) 13.8 Plt Count (150 - 400 x10 3/uL) 265 MPV (7.0 - 9.0 fL) 9.6 H Neut % (Auto) (56.0 - 77.0 %) 69.4 Lymph % (Auto) (14.0 - 32.0 %) 15.5 Boundary % (Auto) (4.8 - 9.0 %) 8.5 Eos % (Auto) (0.3 - 3.7 %) 5.5 H Baso % (Auto) (0.0 - 2.0 %) 0.4 Neut # (Auto) (2.0 - 7.6 x10 3/uL) 5.94 Lymph # (Auto) (1.0 - 3.8 x10 3/uL) 1.33 Boundary # (Auto) (0.1 - 0.8 x10 3/uL) 0.73 Eos # (Auto) (0.0 - 0.2 x10 3/uL) 0.47 H Baso # (Auto) (0.0 - 0.2 x10 3/uL) 0.03 Abs Immat Gran (auto) (0.00 - 0.03 0.06 H x10 3/uL) Add Manual Diff NO Immature Gran % (0.0 - 2.0 %) 0.7 Nucleated RBC % (0 - 0 %) 0.0 Nucleated RBCs # (Man) (0.0 - 0.1 0.00 x10 3/uL) Toxicology Random Vancomycin (mcg/mL) 15.7 09/10 09/09 0541 1911 Chemistry POC Glucose (70 - 110 MG/DL) 154 H 102 Recent Impressions: ULTRASOUND - US RETROPERITONEAL COM 09/10 1311 Report Impression - Status: SIGNED Entered: 09/10/2022 1503 IMPRESSION: No acute findings. Impression By: Hakeem Jacobo Laboratory Tests: 09/09 09/09 09/09 09/09 09/09 1606 1526 1403 1049 0524 Chemistry POC Glucose (70 - 110 MG/DL) 109 30 L 90 128 H Toxicology Random Vancomycin (mcg/mL) 15.4 09/09 09/08 09/08 0500 1955 1828 Chemistry Sodium (134 - 147 mEq/L) 136 Potassium (3.4 - 5.0 mEq/L) 4.2 Chloride (100 - 108 mEq/L) 107 Carbon Dioxide (21 - 33 mEq/l) 22 Anion Gap (0 - 20) 11 BUN (7 - 18 mg/dL) 23 H Creatinine (0.6 - 1.3 mg/dL) 1.5 H Glomerular Filtr Rate (90 - 95) 53.6 L Glucose (70 - 110 mg/dL) 125 H POC Glucose (70 - 110 MG/DL) 106 Calcium (8.0 - 10.5 mg/dL) 8.2 Phosphorus (2.5 - 4.9 MG/DL) 4.0 Magnesium (1.80 - 2.40 mg/dL) 1.89 Iron (35 - 150 mcg/dL) 10 L TIBC (260 - 445 mcg/dL) 138 L % Saturation (14 - 34 %) 7.2 L Unsat Iron Binding (mcg/dL) 128 Ferritin (23.9 - 336.2 ng/mL) 700.5 H Lactate Dehydrogenase (87 - 241 IUnits/L) 193 Hematology WBC (4.5 - 11.0 x10 3/uL) 9.2 RBC (4.00 - 5.60 x10 6/uL) 3.01 L Hgb (12.5 - 16.9 g/dL) 8.5 L Hct (37.5 - 50.7 %) 25.9 L MCV (81.0 - 99.0 fL) 86.0 MCH (27.0 - 33.0 pg) 28.2 MCHC (33.0 - 37.0 g/dL) 32.8 L RDW (11.5 - 14.5 %) 13.8 Plt Count (150 - 400 x10 3/uL) 263 MPV (7.0 - 9.0 fL) 9.7 H Neut % (Auto) (56.0 - 77.0 %) 69.1 Lymph % (Auto) (14.0 - 32.0 %) 16.1 Boundary % (Auto) (4.8 - 9.0 %) 9.2 H Eos % (Auto) (0.3 - 3.7 %) 4.7 H Baso % (Auto) (0.0 - 2.0 %) 0.4 Neut # (Auto) (2.0 - 7.6 x10 3/uL) 6.38 Lymph # (Auto) (1.0 - 3.8 x10 3/uL) 1.49 Boundary # (Auto) (0.1 - 0.8 x10 3/uL) 0.85 H Eos # (Auto) (0.0 - 0.2 x10 3/uL) 0.43 H Baso # (Auto) (0.0 - 0.2 x10 3/uL) 0.04 Abs Immat Gran (auto) (0.00 - 0.03 x10 3/uL) 0. 05 H Add Manual Diff NO Immature Gran % (0.0 - 2.0 %) 0.5 Nucleated RBC % (0 - 0 %) 0.0 Nucleated RBCs # (Man) (0.0 - 0.1 x10 3/uL) 0.0 0 Retic Count (auto) (0.3 - 2.3 %) 1.3 Laboratory Tests: 09/08 09/08 09/08 09/08 09/08 1611 1318 1045 1033 0616 Chemistry POC Glucose (70 - 110 MG/DL) 120 H 101 99 101 Toxicology Random Vancomycin (mcg/mL) 15.8 09/08 09/07 09/07 0615 2238 2110 Chemistry Sodium (134 - 147 mEq/L) 135 Potassium (3.4 - 5.0 mEq/L) 4.6 Chloride (100 - 108 mEq/L) 107 Carbon Dioxide (21 - 33 mEq/l) 22 Anion Gap (0 - 20) 10 BUN (7 - 18 mg/dL) 22 H Creatinine (0.6 - 1.3 mg/dL) 1.4 H Glomerular Filtr Rate (90 - 95) 58.3 L Glucose (70 - 110 mg/dL) 100 POC Glucose (70 - 110 MG/DL) 135 H 127 H Calcium (8.0 - 10.5 mg/dL) 8.1 Magnesium (1.80 - 2.40 mg/dL) 1.58 L Total Creatine Kinase (46 - 171 Units/L) 22 L Albumin (3.4 - 5.0 g/dL) 1.30 L Prealbumin (16.0 - 40.0 mg/dL) < 5.0 L Hematology WBC (4.5 - 11.0 x10 3/uL) 9.1 RBC (4.00 - 5.60 x10 6/uL) 3.05 L Hgb (12.5 - 16.9 g/dL) 8.5 L Hct (37.5 - 50.7 %) 26.2 L MCV (81.0 - 99.0 fL) 85.9 MCH (27.0 - 33.0 pg) 27.9 MCHC (33.0 - 37.0 g/dL) 32.4 L RDW (11.5 - 14.5 %) 13.5 Plt Count (150 - 400 x10 3/uL) 231 MPV (7.0 - 9.0 fL) 9.6 H Neut % (Auto) (56.0 - 77.0 %) 73.3 Lymph % (Auto) (14.0 - 32.0 %) 13.7 L Boundary % (Auto) (4.8 - 9.0 %) 7.2 Eos % (Auto) (0.3 - 3.7 %) 4.8 H Baso % (Auto) (0.0 - 2.0 %) 0.3 Neut # (Auto) (2.0 - 7.6 x10 3/uL) 6.64 Lymph # (Auto) (1.0 - 3.8 x10 3/uL) 1.24 Boundary # (Auto) (0.1 - 0.8 x10 3/uL) 0.65 Eos # (Auto) (0.0 - 0.2 x10 3/uL) 0.43 H Baso # (Auto) (0.0 - 0.2 x10 3/uL) 0.03 Abs Immat Gran (auto) (0.00 - 0.03 x10 3/uL) 0. 06 H Add Manual Diff NO Immature Gran % (0.0 - 2.0 %) 0.7 Nucleated RBC % (0 - 0 %) 0.0 Nucleated RBCs # (Man) (0.0 - 0.1 x10 3/uL) 0.0 0 Laboratory Tests: 09/07 09/07 09/07 09/07 09/07 1554 1137 1127 0618 0510 Chemistry Creatinine (0.6 - 1.3 mg/dL) 1.4 H POC Glucose (70 - 110 MG/DL) 112 H 51 L 42 L 13 5 H Hematology Hgb (12.5 - 16.9 g/dL) 8.4 L Hct (37.5 - 50.7 %) 26.2 L Toxicology Random Vancomycin (mcg/mL) 14.7 09/06 09/06 2226 2108 Chemistry POC Glucose (70 - 110 MG/DL) 192 H 211 H Laboratory Tests: 09/06 09/06 09/06 09/06 09/06 1553 1547 1051 0538 0536 Chemistry Creatinine (0.6 - 1.3 mg/dL) 1.4 H POC Glucose (70 - 110 MG/DL) 119 H 92 124 H Hematology Hgb (12.5 - 16.9 g/dL) 8.6 L Hct (37.5 - 50.7 %) 26.1 L Toxicology Vancomycin Trough (10.0 - 20.0 mcg/mL) 18.9 09/05 1910 Chemistry POC Glucose (70 - 110 MG/DL) 117 H Laboratory Tests: 09/05 09/05 09/04 09/04 09/04 1149 0615 2041 1630 1557 Chemistry Sodium (134 - 147 mEq/L) 134 Potassium (3.4 - 5.0 mEq/L) 5.0 Chloride (100 - 108 mEq/L) 109 H Carbon Dioxide (21 - 33 mEq/l) 21 Anion Gap (0 - 20) 9 BUN (7 - 18 mg/dL) 24 H Creatinine (0.6 - 1.3 mg/dL) 1.3 Glomerular Filtr Rate (90 - 95) 63.7 L Glucose (70 - 110 mg/dL) 75 POC Glucose (70 - 110 MG/DL) 74 103 128 H Calcium (8.0 - 10.5 mg/dL) 7.9 L Hematology Hgb (12.5 - 16.9 g/dL) 7.1 L Hct (37.5 - 50.7 %) 22.7 L Toxicology Vancomycin Trough (10.0 - 20.0 mcg/mL) 12.8 Microbiology: Date/Time Procedure - Status Source Growth 09/04 1739 Occult Blood - COMP STOOL Recent Impressions: RADIOLOGY - XR ABDOMEN 1V (KUB) 09/04 1648 Report Impression - Status: SIGNED Entered: 09/04/2022 1757 IMPRESSION: Benign appearance of the abdomen. Impression By: [email or web address] - Hakeem Soto ULTRASOUND - [facility]I/LTD 09/05 1146 Report Impression - Status: SIGNED Entered: 09/05/2022 1333 IMPRESSION: 1. No evidence of deep vein thrombosis. 2. Complex heterogeneous hypoechoic fluid collec tion in the left calf region measuring 8.4 x 2.8 x 2.5 cm; there is no internal vascularity or peripheral hyperemia. May represe nt a hematoma. Impression By: [email or web address] - Mert Ga M.D. RADIOLOGY - XR CHEST 1 V 09/05 1432 Report Impression - Status: SIGNED Entered: 09/05/2022 1515 IMPRESSION: Minimal bibasilar pulmonary opacities Impression By: Hakeem Jacobo Laboratory Tests: 09/04 09/04 09/04 09/04 09/04 1630 1557 1100 1031 0816 Chemistry POC Glucose (70 - 110 MG/DL) 128 H 107 99 Hematology Hgb (12.5 - 16.9 g/dL) 7.7 L Hct (37.5 - 50.7 %) 23.7 L Toxicology Vancomycin Trough (10.0 - 20.0 mcg/mL) 12.8 09/04 09/04 09/03 09/03 0721 0540 1944 1836 Chemistry POC Glucose (70 - 110 MG/DL) 87 124 H Hematology Hgb (12.5 - 16.9 g/dL) 6.8 L Hct (37.5 - 50.7 %) 21.2 L Toxicology Vancomycin Peak (30 - 40 MCG/ML) 27.4 L Microbiology: Date/Time Procedure - Status Source Growth 09/04 1037 Occult Blood - COLB STOOL 1.Diabetes mellitus type 2 uncontrolled complica tions. 2. 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 4. Sepsis 5. Prostate abscess. 6. Anemia Blood sugar 201-80 mg/dL.H/H 8.11/17. Adjust insulin dose. PT and OT. Electronically Signed by Braxton Chapin MD on at 1742 RPT #:[id number] END OF REPORT 2022-09-18 17:39:00-00:00 [facility] Podiatry Progress Note REPORT#:[id number] REPORT STATUS: Signed DATE:09/18/22 TIME: 1739 PATIENT: KARMA ROWLAND UNIT #: [id number] ROOM/BED: [place] [id number] : 63 AGE: 56 SEX: M ATTEND: Fredy Vences MD ADM AUTHOR: Liam PedersenM * ALL edits or amendments must be made on the el [employer]/computer document * Subjective Chief complaint: left heel ulcer. left ankle pain Patient reports: no confusion, no constipation, no dizziness, no fever, no itching Objective General VS: Last Documented: Result Date Time Pulse Ox 98 09/18 1441 B/P 157/80 09/18 1441 B/P Mean 105.5 09/18 1441 O2 Delivery Room air 09/18 1441 Pulse 77 09/18 1441 Resp 18 09/18 1441 Temp 36.7 09/18 0649 O2 Flow Rate 2 09/08 1322 PATIENT WEIGHT: Weight (lb): 167 Weight (oz): 12.35 Weight (kg): 76.100 Medications: Active Meds + DC'd Last 24 Hrs Prednisone (predniSONE) 60 MG DAILY 0600 PO Daptomycin (CUBICIN 500MG) 500 MG Q24H IV Sodium Chloride (SODIUM CHLORIDE 0.9%) 50 ML Furosemide (LASIX 40 mg/4 mL INJECTION) 40 MG Q8 HR IV Hydralazine HCl (APRESOLINE) 75 MG Q8HR PO Furosemide (LASIX 40 mg/4 mL INJECTION) 40 MG Q8 HR IV (DC) Hydralazine HCl (APRESOLINE) 50 MG Q8HR PO (DC) Daptomycin (CUBICIN 500MG) 500 MG Q48H IV (DC) Sodium Chloride (SODIUM CHLORIDE 0.9%) 50 ML Insulin Human Lispro (HUMALOG) 10 UNIT AC SUBQ Heparin Sodium (HEPARIN 5000 UNITS/ML) 5,000 UNI T Q12HR SUBQ (DC) Insulin Glargine (Semglee) 20 UNIT BEDTIME SUBQ Meropenem (MEROPENEM) 500 MG Q8H IV Sterile Water (WATER FOR INJECTION) 10 ML Carvedilol (COREG) 25 MG C BK DIN PO Gabapentin (NEURONTIN) 100 MG Q8HR PO Oxycodone/Acetaminophen (PERCOCET 5/325MG TAB) 2 TAB Q4H PRN PRN PO Folic Acid (FOLIC ACID) 2 MG DAILY PO Multivitamins (TAB-A-MOHAN) 1 TAB DAILY PO Furosemide (LASIX 20MG INJ) 20 MG BLOOD-DOSE BET WEEN IV (CKD) Sodium Chloride (SODIUM CHLORIDE) 10 ML ASDIR IV Pantoprazole Sodium (PROTONIX) 40 MG Q12HR IV Polyethylene Glycol (MIRALAX) 17 GM DAILY PO Sennosides (Senna Lax 8.6 MG TABLET) 8.6 MG MADALYN Y PO Sodium Chloride (SODIUM CHLORIDE) 10 ML ASDIR NV N IV Amitriptyline HCl (ELAVIL) 25 MG BEDTIME PO Zinc Oxide (ZINC OXIDE 30 GM OINTMENT) 1 APPLIC DAILY TOPICAL Sterile Water (WATER FOR IRRIGATION) DRESSING CH GELACIO ASDIR PRN IRR Insulin Human Lispro (HUMALOG) 0 AC HS SUBQ Dextrose/Water (DEXTROSE 10% IN WATER) 125 ML DIR PRN IV (CKD) Dextrose/Water (DEXTROSE 10% IN WATER) 250 ML DIR PRN IV (CKD) Glucagon (GLUCAGON) 1 MG ASDIR PRN IM Lidocaine (LIDODERM) 1 PATCH DAILY TOPICAL Acetaminophen (TYLENOL) 650 MG Q6H PRN PRN PO Bisacodyl (DULCOLAX) 10 MG DAILY PRN PRN RECTAL Docusate Sodium (COLACE) 100 MG Q12H PRN PRN PO Hydralazine HCl (APRESOLINE) 10 MG Q6H PRN PRN I V Ondansetron HCl (ZOFRAN) 4 MG Q6H PRN PRN IV I O: 24 hour I O ending at 0700: 09/18 0700 09/17 1900 Intake Total 200 835 Output Total 2700 Balance -2500 835 Intake, Oral 200 835 Number 0 Incontinent Voids Number Voids 0 Output, Urine 2700 Patient 76.1 kg Weight Weight Bed scale Measurement Method Dietitian nutrition assessment The data set between the solid lines has been im ported from the dietitian's assessment. BMI Calculated: 27.1 Nutrition related diagnosis: Nutrition diagnosis details: Nutrition problem: Altered nutrition labs Nutrition etiology: DM Nutrition signs and symptoms: HYPER/HYPOGLYCEMIA , A1C >14 Nutrition prescription: CONTINUE RENAL DM DIET Dietitian name: You Palmer, DIET Assessment completed: 09/18/22 Physical Exam General appearance: alert, awake, oriented Wound/incision: Location: left foot Site condition: dp/pt 2/4 left. light touch dec reased left foot. ulcer starting at posterior left heel. eccymosis noted . early likely stage 1. left ankle has edema. pain with aggressive ROM left a nkle. dorsal left midfoot is starting to have tissue injury LE vascular pulse assess: 2+ L posterior tibialis, 2+ L dorsalis pedis Considered stroke alert: no Ulcer: Location: DTI dorsal left midfoot Results Findings/Data: Laboratory Tests: 09/18 09/18 09/18 09/18 1611 1102 0906 0540 Chemistry POC Glucose (70 - 110 MG/DL) 118 H 80 171 H 203 H 09/18 09/17 0505 1904 Chemistry Sodium (134 - 147 mEq/L) 138 Potassium (3.4 - 5.0 mEq/L) 4.1 Chloride (100 - 108 mEq/L) 108 Carbon Dioxide (21 - 33 mEq/l) 21 Anion Gap (0 - 20) 13 BUN (7 - 18 mg/dL) 66 H Creatinine (0.6 - 1.3 mg/dL) 2.2 H Glomerular Filtr Rate (90 - 95) 33.9 L Glucose (70 - 110 mg/dL) 201 H POC Glucose (70 - 110 MG/DL) 160 H Calcium (8.0 - 10.5 mg/dL) 7.5 L Phosphorus (2.5 - 4.9 MG/DL) 4.4 Magnesium (1.80 - 2.40 mg/dL) 1.83 Hematology WBC (4.5 - 11.0 x10 3/uL) 10.6 RBC (4.00 - 5.60 x10 6/uL) 2.67 L Hgb (12.5 - 16.9 g/dL) 7.6 L Hct (37.5 - 50.7 %) 23.7 L MCV (81.0 - 99.0 fL) 88.8 MCH (27.0 - 33.0 pg) 28.5 MCHC (33.0 - 37.0 g/dL) 32.1 L RDW (11.5 - 14.5 %) 14.8 H Plt Count (150 - 400 x10 3/uL) 341 MPV (7.0 - 9.0 fL) 9.2 H Neut % (Auto) (56.0 - 77.0 %) 74.6 Lymph % (Auto) (14.0 - 32.0 %) 17.4 Boundary % (Auto) (4.8 - 9.0 %) 6.9 Eos % (Auto) (0.3 - 3.7 %) 0.1 L Baso % (Auto) (0.0 - 2.0 %) 0.1 Neut # (Auto) (2.0 - 7.6 x10 3/uL) 7.91 H Lymph # (Auto) (1.0 - 3.8 x10 3/uL) 1.85 Boundary # (Auto) (0.1 - 0.8 x10 3/uL) 0.73 Eos # (Auto) (0.0 - 0.2 x10 3/uL) 0.01 Baso # (Auto) (0.0 - 0.2 x10 3/uL) 0.01 Abs Immat Gran (auto) (0.00 - 0.03 x10 3/uL) 0. 10 H Add Manual Diff NO Immature Gran % (0.0 - 2.0 %) 0.9 Nucleated RBC % (0 - 0 %) 0.0 Nucleated RBCs # (Man) (0.0 - 0.1 x10 3/uL) 0.0 0 Diagnosis, Assessment Plan Free Text A P: DM with neuropathy early decub ulcer left heel OA/edema left ankle early ulcer/DTI dorsal left midfoot zinc oxide to foot and heel foam to heel on IV abx on PO gabapentin offloading boot oralia wraps to ankle, only when OOB with therapy. zinc oxide interchange with bactroban to dorsal left foot Consultants: cardiology, endocrinology, hospital ist, infectious disease, podiatry Electronically Signed by Liam Pedersen DPM on 0 09/18/22 at 1741 RPT #:[id number] END OF REPORT 2022-09-18 15:52:00-00:00 [facility] ([facility]) Gastroenterology Progress Note REPORT#:[id number] REPORT STATUS: Signed DATE:09/18/22 TIME: 1552 PATIENT: KARMA ROWLAND UNIT #: [id number] ROOM/BED: [facility] [place] : 61 AGE: 56 SEX: M ATTEND: Fredy Vences MD ADM AUTHOR: Kassie Avitia MD * ALL edits or amendments must be made on the [employer]/computer document * Subjective HPI: Patient is a 56-year-old male with history of di abetes mellitus type 2 and hypertension who was initially admitted for alte red mental status and right- sided foot infection. 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 The p atient is anemic with current Hgb 7.1. He has received a total of 3 un its pRBCs during this hospitalization. KUB on 09/04 was negative for acute GI process. T he patient denies overt GIB, dark tarry stools, nausea, a bdominal pain, or vomiting. He has never had EGD or colonoscopy. 09/06: No complaints today. Hemoglobin stable. No overt GI bleed. Plan for colonoscopy and endoscopy on Thursday 09/07: No complaints today. No overt GI bleed. Pl anning for colonoscopy and endoscopy tomorrow 09/08: EGD mild gastritis. colonoscopy rectal eugenia yp s/p snare. No other abnormalities 09/09: doing well. Seen at the gym. No bleeding. 09/10: Doing well. No bleeding. tolerating diet. Movig bowels 09/11: doing well. States his leg swelling is bet ter. Tolerating diet. having normal BM 09/12: dooing well. doing work-out at the gym. To lerating diet. Normal BMs. Stable H/H 09/14-Sitting up in wheelchair, family at bedside . Denies n/v/abd pain/GIB 09/15: Doing well. H/H stable. No melena or BRBPR . No nausea or vomiting. Appetite is well 09/16: doing well. no complaints. eating well 09/17: stable H/H. No complaints. 09/18/22: H/H fluctuating but overall stable Objective Physical Exam HEENT: atraumatic, normocephalic Neck: full range of motion, non-tender Respiratory: symmetric expansion, no distress Abdomen: non-tender, normal bowel sounds, soft, no distention, no guarding Extremities: right BKA Considered stroke alert: no Skin: dry Diagnosis, Assessment Plan Free Text A P: 1. Positive FOBT-and anemia: The patient denies overt GIB, dark tarry stools, nausea, abdominal pain, or vomiting. He is not o n anticoagulation therapy. -Continue PPI. The patient has never had EGD or colonoscopy prior to this admission s/p EGD and colonoscopy. EGD showed mild gastrit is. Colonoscopy showed rectal polyp that was resected by snare. no evidence of bleeding. Pathology of polyp came back as tubular adenoma. recommend repeatin g colonoscopy in 5 years Anemia likely secondary to chronic kidney diseas e. Can consider video capsule endoscopy as outpt if evidence of dropping H/H H/H remains stable Consider not checking H H daily Will follow along Consultants: cardiology, endocrinology, hospital ist, infectious disease, podiatry at 1553 RPT #:[id number] END OF REPORT 2022-09-18 15:49:00-00:00 [facility] ([facility]) Pain Management Progress Note REPORT#:[id number] REPORT STATUS: Signed DATE:09/18/22 TIME: 1548 PATIENT: KARMA ROWLAND UNIT #: [id number] ROOM/BED: [place] [address] : 61 AGE: 56 SEX: M ATTEND: Fredy Vences MD ADM AUTHOR: Ben Klein * ALL edits or amendments must be made on the [employer]/computer document * Ben Klein 09/18/22 1549: Subjective Chief complaint: Patient seen and examined. Chart/MAR reviewed. Patient slept well overnight. No acute concerns. Pain control is good. No aggravating neuropathy symptoms. Patient being seen for Acute postoperative pain, right foot and ankle gangrene, requiring BKA, Neuropathy, Constipation Patient is still requiring medications t o help with managing current problems. No fever/chills, chest pain, orthopnea, nausea/v omiting, pruritus, or hallucinations. 14 point ROS undertaken unremarkable except as n oted Objective General VS/I O: Vital Signs Date Temp Pulse Resp B/P B/P Mean Pulse Ox FiO2 09/17-09/18 36.5-36.7 77-90 14-18 153-178/80-88 105.5-116.7 98 Last Documented: Result Date Time Pulse Ox 98 09/18 1441 B/P 157/80 09/18 1441 B/P Mean 105.5 09/18 1441 O2 Delivery Room air 09/18 1441 Pulse 77 09/18 1441 Resp 18 09/18 1441 Temp 36.7 09/18 0649 O2 Flow Rate 2 09/08 1322 24 hour I O ending at 0700: 09/18 0700 09/17 1900 Intake Total 200 835 Output Total 2700 Balance -2500 835 Intake, Oral 200 835 Number 0 Incontinent Voids Number Voids 0 Output, Urine 2700 Patient 76.1 kg Weight Weight Bed scale Measurement Method PATIENT WEIGHT: Weight (lb): 167 Weight (oz): 12.35 Weight (kg): 76.100 Medications: Active Meds + DC'd Last 24 Hrs Prednisone (predniSONE) 60 MG DAILY 0600 PO Daptomycin (CUBICIN 500MG) 500 MG Q24H IV Sodium Chloride (SODIUM CHLORIDE 0.9%) 50 ML Furosemide (LASIX 40 mg/4 mL INJECTION) 40 MG Q8 HR IV Hydralazine HCl (APRESOLINE) 75 MG Q8HR PO Furosemide (LASIX 40 mg/4 mL INJECTION) 40 MG Q8 HR IV (DC) Hydralazine HCl (APRESOLINE) 50 MG Q8HR PO (DC) Daptomycin (CUBICIN 500MG) 500 MG Q48H IV (DC) Sodium Chloride (SODIUM CHLORIDE 0.9%) 50 ML Insulin Human Lispro (HUMALOG) 10 UNIT AC SUBQ Heparin Sodium (HEPARIN 5000 UNITS/ML) 5,000 UNI T Q12HR SUBQ (DC) Insulin Glargine (Semglee) 20 UNIT BEDTIME SUBQ Meropenem (MEROPENEM) 500 MG Q8H IV Sterile Water (WATER FOR INJECTION) 10 ML Carvedilol (COREG) 25 MG C BK DIN PO Gabapentin (NEURONTIN) 100 MG Q8HR PO Oxycodone/Acetaminophen (PERCOCET 5/325MG TAB) 2 TAB Q4H PRN PRN PO Folic Acid (FOLIC ACID) 2 MG DAILY PO Multivitamins (TAB-A-MOHAN) 1 TAB DAILY PO Furosemide (LASIX 20MG INJ) 20 MG BLOOD-DOSE BET WEEN IV (CKD) Sodium Chloride (SODIUM CHLORIDE) 10 ML ASDIR IV Pantoprazole Sodium (PROTONIX) 40 MG Q12HR IV Polyethylene Glycol (MIRALAX) 17 GM DAILY PO Sennosides (Senna Lax 8.6 MG TABLET) 8.6 MG MADALYN Y PO Sodium Chloride (SODIUM CHLORIDE) 10 ML ASDIR NV N IV Amitriptyline HCl (ELAVIL) 25 MG BEDTIME PO Zinc Oxide (ZINC OXIDE 30 GM OINTMENT) 1 APPLIC DAILY TOPICAL Sterile Water (WATER FOR IRRIGATION) DRESSING CH GELACIO ASDIR PRN IRR Insulin Human Lispro (HUMALOG) 0 AC HS SUBQ Dextrose/Water (DEXTROSE 10% IN WATER) 125 ML DIR PRN IV (CKD) Dextrose/Water (DEXTROSE 10% IN WATER) 250 ML DIR PRN IV (CKD) Glucagon (GLUCAGON) 1 MG ASDIR PRN IM Lidocaine (LIDODERM) 1 PATCH DAILY TOPICAL Acetaminophen (TYLENOL) 650 MG Q6H PRN PRN PO Bisacodyl (DULCOLAX) 10 MG DAILY PRN PRN RECTAL Docusate Sodium (COLACE) 100 MG Q12H PRN PRN PO Hydralazine HCl (APRESOLINE) 10 MG Q6H PRN PRN I V Ondansetron HCl (ZOFRAN) 4 MG Q6H PRN PRN IV Physical Exam General appearance: alert, awake, oriented, no a cute distress Head/eyes: atraumatic, EOMI, normocephalic, norm al conjunctiva/sclera, PERRLA ENT: normal pharynx, moist mucosal membranes Neck: full range of motion, no lymphadenopathy, supple/no meningismus Cardiovascular: regular rate rhythm Respiratory: clear to auscultation, no distress Abdomen: soft, non-tender, no distention , active bowel sounds in all quarants. 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: 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, no sensory deficit s, CNII-XII grossly intact Considered stroke alert: no Skin: dry, intact, no rash Results Findings/data: Laboratory Tests: 09/18 09/18 09/18 09/18 1102 0906 0540 0505 Chemistry Sodium (134 - 147 mEq/L) 138 Potassium (3.4 - 5.0 mEq/L) 4.1 Chloride (100 - 108 mEq/L) 108 Carbon Dioxide (21 - 33 mEq/l) 21 Anion Gap (0 - 20) 13 BUN (7 - 18 mg/dL) 66 H Creatinine (0.6 - 1.3 mg/dL) 2.2 H Glomerular Filtr Rate (90 - 95) 33.9 L Glucose (70 - 110 mg/dL) 201 H POC Glucose (70 - 110 MG/DL) 80 171 H 203 H Calcium (8.0 - 10.5 mg/dL) 7.5 L Phosphorus (2.5 - 4.9 MG/DL) 4.4 Magnesium (1.80 - 2.40 mg/dL) 1.83 Hematology WBC (4.5 - 11.0 x10 3/uL) 10.6 RBC (4.00 - 5.60 x10 6/uL) 2.67 L Hgb (12.5 - 16.9 g/dL) 7.6 L Hct (37.5 - 50.7 %) 23.7 L MCV (81.0 - 99.0 fL) 88.8 MCH (27.0 - 33.0 pg) 28.5 MCHC (33.0 - 37.0 g/dL) 32.1 L RDW (11.5 - 14.5 %) 14.8 H Plt Count (150 - 400 x10 3/uL) 341 MPV (7.0 - 9.0 fL) 9.2 H Neut % (Auto) (56.0 - 77.0 %) 74.6 Lymph % (Auto) (14.0 - 32.0 %) 17.4 Boundary % (Auto) (4.8 - 9.0 %) 6.9 Eos % (Auto) (0.3 - 3.7 %) 0.1 L Baso % (Auto) (0.0 - 2.0 %) 0.1 Neut # (Auto) (2.0 - 7.6 x10 3/uL) 7.91 H Lymph # (Auto) (1.0 - 3.8 x10 3/uL) 1.85 Boundary # (Auto) (0.1 - 0.8 x10 3/uL) 0.73 Eos # (Auto) (0.0 - 0.2 x10 3/uL) 0.01 Baso # (Auto) (0.0 - 0.2 x10 3/uL) 0.01 Abs Immat Gran (auto) (0.00 - 0.03 x10 3/uL) 0 .10 H Add Manual Diff NO Immature Gran % (0.0 - 2.0 %) 0.9 Nucleated RBC % (0 - 0 %) 0.0 Nucleated RBCs # (Man) (0.0 - 0.1 x10 3/uL) 0. 00 09/17 09/17 1904 1554 Chemistry POC Glucose (70 - 110 MG/DL) 160 H 75 Diagnosis, Assessment Plan Free text A P: A/P: Patient is a 56 year old male who presents with: Past Medical History: Prostate abscess, right fo ot foot and ankle gangrene, diabetes, hypertension, hyperlipidemia Past Surgical History: TURP, right BKA Family History: Noncontributory Social History: Denies tobacco, alcohol, or drug use Allergies: NKDA Recent prostate abscess -Status post TURP with unroofing of abscess -IV antibiotics with vancomycin until 09-24-2022 Acute postoperative pain, right foot and ankle g angrene, requiring BKA -Patient is at risk for further amputations or l oss of limb due to comorbid conditions -Status post right BKA 08/28/2022 -DC Check 10/325 1 tablet p.o. every 4 hours as needed pain scale 4 10 -DC Dilaudid 0.5 mg IV daily as needed pain scale 7 10, second line therapy () -Tylenol 650 mg p.o. every 6 hours as needed ofelia n scale 1 3 -Percocet 10/325mg every 4 hours as needed, pain scale 4-10 (09/10) -Lidoderm patch to left ankle daily -IV antibiotics with vancomycin until 09-24-2022 -Local wound care -manageable Diabetic peripheral neuropathy -amitriptyline 25mg PO QHS -Gabapentin 100mg every 8 hours (09/10) -manageable Hypertension -We will monitor hypertension and tachycardia du e to pain, and hypotension as well as bradycardia secondary over sedation with narcotics -Hydralazine as needed Elevated LFTs -08/20/22-AST 51, ALT 22 -09/03/2022-AST 15, ALT 7 -Patient will require close monitoring since he is using narcotics with Tylenol Impaired functional mobility, balance, gait, and endurance -PT/OT Antalgic/Impaired gait -PT/OT -Improve strength, endurance, self-care, gait, b alance, ADLs -Fall precautions per unit protocol -Pain medications as outlined above Constipation -We will monitor while utilizing opioid narcotic medications. -Adequate fluid intake also discussed. -Colace 100 mg p.o. twice daily as needed -Dulcolax 10 mg rectally daily as needed -Senna lax 8.6mg daily -Miralax 17gm daily -manageable Disposition: percocet 10/325 mg q6h prn pain , gabapentin 100mg q8h sent to [facility]/ pharmacy #[id number]] [address] [place], [place] [address] [address] Phone: Patient has failed conservative medical therapy. Patient will require monitoring while utilize na rcotic medications for any adverse effects, and will adjust as needed Plan of care discussed with patient and nurse All diagnostics of last 24 hours been reviewed. Risks versus benefits of opioid medications were reviewed to include, but not limited to respiratory depression, accid ental overdose, altered mental status, sudden , constipation which could result in bowel obstruction, seizures, withdrawal, dependency addiction, risk for falls . Case discussed with Dr Ng whom agrees. Thank you for the consultation. [place] [facility] NURSE: -database searched, no information found Kingsley Ng 10/07/22 0726: Attestations Physician Attestation Agree w/findings plan: The patient was seen and exa mined by Ben Klein. I personally developed the care plan, which was continued by the mid-level provider. I was immediately available. at 1553 Electronically Signed by Kingsley Ng MD on 3 at 1234 RPT #:[id number] END OF REPORT 2022-09-18 13:35:00-00:00 [facility] ([facility]) Hospitalist Progress Note REPORT#:[id number] REPORT STATUS: Signed DATE:09/18/22 TIME: 1335 PATIENT: KARMA ROWLAND UNIT #: [id number] ROOM/BED: [place] [address] : 61 AGE: 56 SEX: M ATTEND: Fredy Vences MD ADM AUTHOR: Meera Chavira DO * ALL edits or amendments must be made on the [employer]/computer document * Subjective Chief complaint: Edema LLE improved but still present Review of Systems Cardiovascular: Reports: edema. All systems rev neg: except as noted Objective General VS/I O: Vital Signs: Date Time Temp Pulse Resp B/P B/P Pulse O2 O2 F low FiO2 Mean Ox Delivery Rate 09/18 0649 98.1 85 18 169/85 112.9 98 Room air 09/18 0524 79 14 169/88 114.7 98 09/18 0022 97.9 81 16 153/82 105.7 98 Room air 09/17 1837 97.7 90 16 178/86 116.7 98 Room air 24 hour I O ending at 0700: 09/18 0700 09/17 1900 Intake Total 200 835 Output Total 2700 Balance -2500 835 Intake, Oral 200 835 Number 0 Incontinent Voids Number Voids 0 Output, Urine 2700 Patient 76.1 kg Weight Weight Bed scale Measurement Method PATIENT WEIGHT: Weight (lb): 167 Weight (oz): 12.35 Weight (kg): 76.100 Medications: Active Meds + DC'd Last 24 Hrs Prednisone (predniSONE) 60 MG DAILY 0600 PO Furosemide (LASIX 40 mg/4 mL INJECTION) 40 MG Q8 HR IV Hydralazine HCl (APRESOLINE) 75 MG Q8HR PO Furosemide (LASIX 40 mg/4 mL INJECTION) 40 MG Q8 HR IV (DC) Hydralazine HCl (APRESOLINE) 50 MG Q8HR PO (DC) Daptomycin (CUBICIN 500MG) 500 MG Q48H IV Sodium Chloride (SODIUM CHLORIDE 0.9%) 50 ML Insulin Human Lispro (HUMALOG) 10 UNIT AC SUBQ Heparin Sodium (HEPARIN 5000 UNITS/ML) 5,000 UNI T Q12HR SUBQ (DCr) Insulin Glargine (Semglee) 20 UNIT BEDTIME SUBQ Meropenem (MEROPENEM) 500 MG Q8H IV Sterile Water (WATER FOR INJECTION) 10 ML Carvedilol (COREG) 25 MG C BK DIN PO Gabapentin (NEURONTIN) 100 MG Q8HR PO Oxycodone/Acetaminophen (PERCOCET 5/325MG TAB) 2 TAB Q4H PRN PRN PO Folic Acid (FOLIC ACID) 2 MG DAILY PO Multivitamins (TAB-A-MOHAN) 1 TAB DAILY PO Furosemide (LASIX 20MG INJ) 20 MG BLOOD-DOSE BET WEEN IV (CKD) Sodium Chloride (SODIUM CHLORIDE) 10 ML ASDIR IV Pantoprazole Sodium (PROTONIX) 40 MG Q12HR IV Polyethylene Glycol (MIRALAX) 17 GM DAILY PO Sennosides (Senna Lax 8.6 MG TABLET) 8.6 MG CODY LY PO Sodium Chloride (SODIUM CHLORIDE) 10 ML ASDIR NV N IV Amitriptyline HCl (ELAVIL) 25 MG BEDTIME PO Zinc Oxide (ZINC OXIDE 30 GM OINTMENT) 1 APPLIC DAILY TOPICAL Sterile Water (WATER FOR IRRIGATION) DRESSING CH GELACIO ASDIR PRN IRR Insulin Human Lispro (HUMALOG) 0 AC HS SUBQ Dextrose/Water (DEXTROSE 10% IN WATER) 125 ML DIR PRN IV (CKD) Dextrose/Water (DEXTROSE 10% IN WATER) 250 ML DIR PRN IV (CKD) Glucagon (GLUCAGON) 1 MG ASDIR PRN IM Lidocaine (LIDODERM) 1 PATCH DAILY TOPICAL Acetaminophen (TYLENOL) 650 MG Q6H PRN PRN PO Bisacodyl (DULCOLAX) 10 MG DAILY PRN PRN RECTAL Docusate Sodium (COLACE) 100 MG Q12H PRN PRN PO Hydralazine HCl (APRESOLINE) 10 MG Q6H PRN PRN I V Ondansetron HCl (ZOFRAN) 4 MG Q6H PRN PRN IV Physical Exam General appearance: alert, awake, oriented, no a cute distress, pleasant, conversational, mental status normal, no respira tory distress Head/Eyes: atraumatic, normocephalic ENT: moist mucosal membranes Neck: no JVD Cardiovascular: normal heart sounds, regular rat e rhythm Respiratory: aerating well, clear to auscultatio n Abdomen: non-tender, normal bowel sounds Genitourinary: no bladder distention Extremities: edema (1+ pitting edema to thigh), moves all, normal capillary refill Musculoskeletal: normal inspection 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 X 3, 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 Considered stroke alert: no Skin: dry, intact Psychiatry: normal affect, normal judgment/insig ht Results Findings/Data: Laboratory Tests 09/18 09/18 09/18 09/18 09/17 1102 0906 0540 0505 1904 Chemistry Sodium (134 - 147 mEq/L) 138 Potassium (3.4 - 5.0 mEq/L) 4.1 Chloride (100 - 108 mEq/L) 108 Carbon Dioxide (21 - 33 mEq/l) 21 Anion Gap (0 - 20) 13 BUN (7 - 18 mg/dL) 66 H Creatinine (0.6 - 1.3 mg/dL) 2.2 H Glomerular Filtr Rate (90 - 95) 33.9 L Glucose (70 - 110 mg/dL) 201 H POC Glucose (70 - 110 MG/DL) 80 171 H 203 H 160 H Calcium (8.0 - 10.5 mg/dL) 7.5 L Phosphorus (2.5 - 4.9 MG/DL) 4.4 Magnesium (1.80 - 2.40 mg/dL) 1.83 09/17 1554 Chemistry POC Glucose (70 - 110 MG/DL) 75 Laboratory Tests 09/18 0505 Hematology WBC (4.5 - 11.0 x10 3/uL) 10.6 RBC (4.00 - 5.60 x10 6/uL) 2.67 L Hgb (12.5 - 16.9 g/dL) 7.6 L Hct (37.5 - 50.7 %) 23.7 L MCV (81.0 - 99.0 fL) 88.8 MCH (27.0 - 33.0 pg) 28.5 MCHC (33.0 - 37.0 g/dL) 32.1 L RDW (11.5 - 14.5 %) 14.8 H Plt Count (150 - 400 x10 3/uL) 341 MPV (7.0 - 9.0 fL) 9.2 H Neut % (Auto) (56.0 - 77.0 %) 74.6 Lymph % (Auto) (14.0 - 32.0 %) 17.4 Boundary % (Auto) (4.8 - 9.0 %) 6.9 Eos % (Auto) (0.3 - 3.7 %) 0.1 L Baso % (Auto) (0.0 - 2.0 %) 0.1 Neut # (Auto) (2.0 - 7.6 x10 3/uL) 7.91 H Lymph # (Auto) (1.0 - 3.8 x10 3/uL) 1.85 Boundary # (Auto) (0.1 - 0.8 x10 3/uL) 0.73 Eos # (Auto) (0.0 - 0.2 x10 3/uL) 0.01 Baso # (Auto) (0.0 - 0.2 x10 3/uL) 0.01 Abs Immat Gran (auto) (0.00 - 0.03 x10 3/uL) 0 .10 H Add Manual Diff NO Immature Gran % (0.0 - 2.0 %) 0.9 Nucleated RBC % (0 - 0 %) 0.0 Nucleated RBCs # (Man) (0.0 - 0.1 x10 3/uL) 0.0 0 Diagnosis, Assessment Plan Consultants: cardiology, endocrinology, hospital ist, infectious disease, podiatry Free Text DxA P Notes Free text DxA P notes: Gangrene of right foot s/p Below- knee amputatio n Prostate abscess MRSA bacteremia Hx of Diabetes, Diabetic neuropathy HTN ERIKA PLANS: Continue with PT/OT per primary Wound care and Abx as per ID Hepain PPX IV iron BP continues to be elevated, Hydralazine increased to 75 mg TID, cont Metoprolol to 25 mg BID BS better but likely to incr ease with re-initiation of steroids x3 days started by Nephrology for AIN - Endo adjusting insulin pain control Cr at 2.2, Nephrology following, re-started Pred nisone 60 mg for 3 days Lasix x 3 more doses for edema Hgb stabilized. continue to monitor Electronically Signed by Meera Chavira DO on 3 at 1338 RPT #:[id number] END OF REPORT 2022-09-18 11:41:00-00:00 [facility] Rehab Progress Note REPORT#:[id number] REPORT STATUS: Signed DATE:09/18/22 TIME: 1141 PATIENT: KARMA ROWLAND UNIT #: [id number] [place]OM[place]ED: [facility] : 61 AGE: 56 SEX: M ATTEND: Fredy Vences MD ADM AUTHOR: Mj Vences MD * ALL edits or amendments must be made on the el [employer]/computer document * Subjective Chief complaint: Rehab follow-up Feels good today BKA site with bleeding Edema slowly improving Slightly elevated blood pressure Eating 75-100% at bedside + BM Denies MCBRIDE/N/V/D/CP 14 systems reviewed and neg. except that above. History of present illness: 56 yo HAM with long h/o DM, and HTN who was admitted for fever, flulike symptoms and altered mental status on 08/18. He was doing well until about 3 days prior to admission when he noted blister to have formed o n the dorsum of his foot. His foot started progressively getting more swollen and the blisters started enlarging and extending to his lateral f oot and ankle. He started feeling weak and nauseated. He was noted to have altered mentation and was brought to our ER. He was noted to be in DKA with Blood sugars grea ter than 600. He was seen by podiatry and surgery for BLE wounds and infectio n. He was treated in ICU for sepsis and DKA. He underwent incisional and excisional debridement of right foot and right ankle by podiatry. Patient also found to have prostate abscess underwent transrectal ultrasound aspiration of a bscess and transurethral resection of prostate and unroofing of abscess b y urology Dr. Bass. Endocrinology treated the DKA and blood sugars m uch improved. Patient's right foot was not salvageable and patient und erwent right BKA by Dr. LEROY on 08/28. Patient blood cultures showe d MRSA. Patient continued on antibiotics as per ID. MRI of the pelvis and foot completed. Patient r equired multiple PRBCs for anemia. Patient was found to have a possible small hematoma of the left calf on ultrasound. He complains of pain and swelling of the left ankle. Patient hemodynamically stable and plans are to be transferred to stepdown unit. He is on heparin subcu for VTE. Af ter surgery he is now being mobilized by PT and OT. He is wearing a [employer] orthotic for right knee /BKA protection. Prior to admission the patient was independent living in a single-story house with his spouse with a few steps up to front and back doo r. 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 is at bedside. Patient denies nausea, vomiting, fever, chills, chest pain, shortness of breath with diz ziness. He is requiring IV Dilaudid for pain control. Mental status back to baseline. Pt is progressing slowly with therapy d/t weakness and pain, self care deficit, decreased endurance and balance, and decreased functional mobility. Pt requiring acute inpt rehab for multidiscipli nary team of nursing, therapy, and physicians. Pt is willing and able to partici- kathleen in 3 hr/day inpt rehab to d/c home safely. Pt' s prior level of function was independent. Objective General VS: Vital Signs: Date Time Temp Pulse Resp B/P B/P Pulse O2 O2 F low FiO2 Mean Ox Delivery Rate 09/18 0649 98.1 85 18 169/85 112.9 98 Room air 09/18 0524 79 14 169/88 114.7 98 09/18 0022 97.9 81 16 153/82 105.7 98 Room air 09/17 1837 97.7 90 16 178/86 116.7 98 Room air PATIENT WEIGHT: Weight (lb): 167 Weight (oz): 12.35 Weight (kg): 76.100 Medications: Active Meds + DC'd Last 24 Hrs Prednisone (predniSONE) 60 MG DAILY 0600 PO Furosemide (LASIX 40 mg/4 mL INJECTION) 40 MG Q8 HR IV Hydralazine HCl (APRESOLINE) 75 MG Q8HR PO Furosemide (LASIX 40 mg/4 mL INJECTION) 40 MG Q8 HR IV (DC) Hydralazine HCl (APRESOLINE) 50 MG Q8HR PO (DC) Daptomycin (CUBICIN 500MG) 500 MG Q48H IV Sodium Chloride (SODIUM CHLORIDE 0.9%) 50 ML Insulin Human Lispro (HUMALOG) 10 UNIT AC SUBQ Heparin Sodium (HEPARIN 5000 UNITS/ML) 5,000 UNI T Q12HR SUBQ Insulin Glargine (Semglee) 20 UNIT BEDTIME SUBQ Meropenem (MEROPENEM) 500 MG Q8H IV Sterile Water (WATER FOR INJECTION) 10 ML Carvedilol (COREG) 25 MG C BK DIN PO Gabapentin (NEURONTIN) 100 MG Q8HR PO Oxycodone/Acetaminophen (PERCOCET 5/325MG TAB) 2 TAB Q4H PRN PRN PO Folic Acid (FOLIC ACID) 2 MG DAILY PO Multivitamins (TAB-A-MOHAN) 1 TAB DAILY PO Furosemide (LASIX 20MG INJ) 20 MG BLOOD-DOSE BET WEEN IV (CKD) Sodium Chloride (SODIUM CHLORIDE) 10 ML ASDIR IV Pantoprazole Sodium (PROTONIX) 40 MG Q12HR IV Polyethylene Glycol (MIRALAX) 17 GM DAILY PO Sennosides (Senna Lax 8.6 MG TABLET) 8.6 MG MADALYN Y PO Sodium Chloride (SODIUM CHLORIDE) 10 ML ASDIR NV N IV Amitriptyline HCl (ELAVIL) 25 MG BEDTIME PO Zinc Oxide (ZINC OXIDE 30 GM OINTMENT) 1 APPLIC DAILY TOPICAL Sterile Water (WATER FOR IRRIGATION) DRESSING CH GELACIO ASDIR PRN IRR Insulin Human Lispro (HUMALOG) 0 AC HS SUBQ Dextrose/Water (DEXTROSE 10% IN WATER) 125 ML DIR PRN IV (CKD) Dextrose/Water (DEXTROSE 10% IN WATER) 250 ML DIR PRN IV (CKD) Glucagon (GLUCAGON) 1 MG ASDIR PRN IM Lidocaine (LIDODERM) 1 PATCH DAILY TOPICAL Acetaminophen (TYLENOL) 650 MG Q6H PRN PRN PO Bisacodyl (DULCOLAX) 10 MG DAILY PRN PRN RECTAL Docusate Sodium (COLACE) 100 MG Q12H PRN PRN PO Hydralazine HCl (APRESOLINE) 10 MG Q6H PRN PRN I V Ondansetron HCl (ZOFRAN) 4 MG Q6H PRN PRN IV Physical Exam General appearance: alert, awake, no acute distr ess Psych: alert, normal affect, oriented x 3 HEENT: anicteric, sclera clear Neck: supple, no JVD Cardiovascular: S1/S2, no murmur Respiratory: aerating well, clear bilaterally Abdomen: bowel sounds present, non-distended, so ft, non-tender Skin: no rash, R BKA HEALING. 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 3, CNII-XII intact Results Findings/Data: Laboratory Tests: 09/18 09/18 09/18 09/18 1102 0906 0540 0505 Chemistry Sodium (134 - 147 mEq/L) 138 Potassium (3.4 - 5.0 mEq/L) 4.1 Chloride (100 - 108 mEq/L) 108 Carbon Dioxide (21 - 33 mEq/l) 21 Anion Gap (0 - 20) 13 BUN (7 - 18 mg/dL) 66 H Creatinine (0.6 - 1.3 mg/dL) 2.2 H Glomerular Filtr Rate (90 - 95) 33.9 L Glucose (70 - 110 mg/dL) 201 H POC Glucose (70 - 110 MG/DL) 80 171 H 203 H Calcium (8.0 - 10.5 mg/dL) 7.5 L Phosphorus (2.5 - 4.9 MG/DL) 4.4 Magnesium (1.80 - 2.40 mg/dL) 1.83 Hematology WBC (4.5 - 11.0 x10 3/uL) 10.6 RBC (4.00 - 5.60 x10 6/uL) 2.67 L Hgb (12.5 - 16.9 g/dL) 7.6 L Hct (37.5 - 50.7 %) 23.7 L MCV (81.0 - 99.0 fL) 88.8 MCH (27.0 - 33.0 pg) 28.5 MCHC (33.0 - 37.0 g/dL) 32.1 L RDW (11.5 - 14.5 %) 14.8 H Plt Count (150 - 400 x10 3/uL) 341 MPV (7.0 - 9.0 fL) 9.2 H Neut % (Auto) (56.0 - 77.0 %) 74.6 Lymph % (Auto) (14.0 - 32.0 %) 17.4 Boundary % (Auto) (4.8 - 9.0 %) 6.9 Eos % (Auto) (0.3 - 3.7 %) 0.1 L Baso % (Auto) (0.0 - 2.0 %) 0.1 Neut # (Auto) (2.0 - 7.6 x10 3/uL) 7.91 H Lymph # (Auto) (1.0 - 3.8 x10 3/uL) 1.85 Boundary # (Auto) (0.1 - 0.8 x10 3/uL) 0.73 Eos # (Auto) (0.0 - 0.2 x10 3/uL) 0.01 Baso # (Auto) (0.0 - 0.2 x10 3/uL) 0.01 Abs Immat Gran (auto) (0.00 - 0.03 x10 3/uL) 0. 10 H Add Manual Diff NO Immature Gran % (0.0 - 2.0 %) 0.9 Nucleated RBC % (0 - 0 %) 0.0 Nucleated RBCs # (Man) (0.0 - 0.1 x10 3/uL) 0.0 0 09/17 09/17 1904 1554 Chemistry POC Glucose (70 - 110 MG/DL) 160 H 75 Radiology data: Recent Impressions: RADIOLOGY - XR CHEST 1 V 09/12 1418 Report Impression - Status: SIGNED Entered: 09/12/20222028 IMPRESSION: Worsening opacities in the right mid and lower l leonel reyes. Mildly improved left retrocardiac opacities. Impression By: [email or web address] - Abel Browne M.D. 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 Leroy Significant impairment in self-care, ADLs and fu nctional mobility Impaired mobility and gait Acute postoperative pain right BKA Diabetic polyneuropathy DKA, DM 2, poorly controlled, A1c greater than 1 4 PAD MRSA bacteremia/sepsis-treated on acute ERIKA Severe hyponatremia-resolved HTN Acute on chronic anemia requiring multiple trans fusions, possible GI bleed Left calf hematoma Edema and clinical arthritis left ankle Early decubitus to left heel/DTI dorsal left mid foot Prostatic abscess 08/26: S/p transrectal ultrasound aspiration of ab scess and transurethral resection of prostate and unroofing of abscess 09/12: Echo: EF 55-59%, grade 1 diastolic dysfunc tion 09/02: JIMENA negative for vegetation MRSA OF NARES 09/08:s/p EGD and colonoscopy. EGD showed mild ga stritis. Colonoscopy showed rectal polyp that was resect ed by snare (tubular adenoma)-repeat colonoscopy in 5 years Plan: -PLOF: Independent with transfers and gait -Amputee rehab program -Continue PT and OT -15/12 rehabilitation nursing care. -Case management for safe discharge planning. -Decubitus prevention -Early decubitus to left heel/DTI dorsal left mi dfoot-zinc oxide to the foot, foam, offloading, podiatry managing -DVT prophylaxis-subcutaneou s heparin-heparin stopped due to bleeding at the BKA site-SCD to left leg -Strict fall and safety precautions -Work on bed mobility, transfer training, ADLs, pre-gait and gait exercises -Increase endurance and strength -Monitor pain with therapies -OOB to chair -Monitor p.o. intake and nut rition, albumin 1.3, prealbumin less than 5, dietary consultation, protein supplements to promote hea ling -Diabetes-A1c 14, tight glycemia control- endocr ine on board, insulin adjustments -Endocrinology, ID, podiatry, cardiology, IM con sulted -Pain management adjusting pain medications -Anemia, patient required multiple units of PRBC s on acute, FOBT positive -IV Protonix-consult GI-seri al H H-no evidence of gross bleeding-discussed with Dr. Trinidad -Constipation-abdominal exgclnti-XGH-ndpmki-CW S enokot and MiraLAX, DSP -MRSA OF NARES on Bactroban protocol -LLE edema-venous Doppler wi th complex heterogeneous hypoechoic fluid collection in the left calf region measuring 8.4, 2.8, 2.5 cm suggestive of hematoma. On low-dose Lasix. Oralia wrap LLE -LE edema could be related to hypoalbuminemia le ading to third spacing-edema improving -Generalized edema-some shor tness of breath and abdominal distention-cardiology gave a dose of IV Lasix-monitor urine output, da jaz weights-SOB resolved -09/05-venous Doppler of LLE-negative for DVT-Oralia wrap dressing and elevation -Anemia-hemoglobin 8.3, 7.7, 8.2, 7.6 transfused 2 units of PRBC on 09/05 -09/08: s/p EGD and colonoscopy. EGD showed mild gastritis. Colonoscopy showed rectal polyp that was resected by snare. Anemia likely secondary to chronic kidney disease. Consult renal. -Pathology of polyp came back as tubular adenoma . recommend repeating colonoscopy in 5 years as per GI -Consider video capsule endoscopy as outpt if ev idence of dropping H/H -Renal ultrasound negative -09/18/2022 laboratory this m delia showed sodium 138, potassium 4.1, CO2 21, BUN 66, creatinine 2.2 continues to improve, urine o utput 2.7 L, hemoglobin 7.6, platelet 341, blood count 10.6, will give Lasix 40 mg IV every 8 for 3 doses, start prednisone 60 mg p.o. daily for 3 days, increase hydralazine to 75 mg p.o. 3 times daily-as per renal -on Merrem and Daptomycin til 09/24 as per ID -Lasix as per nephrology -Completed Solu-Medrol -Noted LLE swelling (not new ) and low albumin. may benefit from albumin infusion + Lasix -CXR-worsening opacities in the right mid and lo wer lung field. Improved left retrocardiac opacities -BNP 297 -09/12: Echo-EF 55-60%, indet erminate diastolic function parameters as per cardio -Blood pressure remains elevated, likely related to steroid therapy. Hydralazine increased to 75 mg 3 times daily. Ne phrology managing diuretic therapy. Continue monitor re nal function and electrolytes. Improvement in lower extremity swelling. Patient denies chest pain or shortness of breath. -Car transfer training 09/23 -Creatinine continues to improve-discussed with patient and about renal issues are improving -Advance therapies as tolerated-discusse d treatment plan with patient and -Patient progressing towards all goals and continues to work on upper and lower extremity strengthening, balance and family saeid moya. Therapist working with nurse to monitor drainage from BKA and continue wound care. -Right QOX-wiiubnw-koxbqbpl resolved, dressings changed today-Fresh blood, no odor-no signs of infection-S taples intact-DC heparin subcu monitor-continue NESTOR- TECH-if bleeding does not improve will g et culture and Dr. Leroy (surgeon) to evaluate. Hemoglobin 7.6, repeat a.m. Progress: PT WORKED ON TXFR TRNG FROM MULTIPLE S URFACES SQUAT PIVOT W/CGA TO LT/RT,STAND PIVOT W/RW AND MIN/ MOD A FOR RW POSITIONING,BALANCE AND SAFETY W/WC LOCKING/ POSITIONING FROM BED<>WC AND WC TO MAT. PM R Please see team note. Plan and goals discussed with the patient. I agree with the teams finding ELOS- [09/24] on IV antibiotics until 09/24 DC-Home with -Home health DME-bedside commode, sliding board, wheelchair, drop arm bedside commode Total time 33 minutes greater than 50% of the ti me spent examining patient, discussing with patient about BKA incision, impr ovement in renal function, on steroids, medical issues, an emia, amputee rehab, discharge plans, rehab plan of care, goals, therapies, progress, labs, medicati ons. EMR and MAR is reviewed. All questions answered Orders: Procedure Date/time Status Sequential Compression Device 09/18 1519 Active OT EXERCISE 15MIN 09/18 UNK Complete OT ADL 09/18 UNK Complete Consultants: cardiology, endocrinology, hospital ist, infectious disease, podiatry Rehab attestation: Face to face exam completed. Treatment plan disc ussed with patient. Meets continued stay criteria. Agree with interdiscipl inary treatment plan. at 1521 RPT #:[id number] END OF REPORT 2022-09-18 10:45:00-00:00 [facility] Cardiology Progress Note REPORT#:[id number] REPORT STATUS: Signed DATE:09/18/22 TIME: 1044 PATIENT: KARMA ROWLAND UNIT #: [id number] ROOM/BED: [place] [id number] : 61 AGE: 56 SEX: M ATTEND: Fredy Vences MD ADM AUTHOR: Rohit Benitez CLAY MILLER * ALL edits or amendments must be made on the el [employer]/computer document * Rohit Benitez 09/18/22 1045: Subjective Chief complaint: weakness Free Text Subj Notes Free Text Subj Notes: Patient seen and evaluated. Doing well, denies c hest pain or shortness of breath. Objective General VS/I O: 24 hour I O ending at 0700: 09/18 0700 09/17 1900 Intake Total 200 835 Output Total 2700 Balance -2500 835 Intake, Oral 200 835 Number 0 Incontinent Voids Number Voids 0 Output, Urine 2700 Patient 168 lb Weight Weight Bed scale Measurement Method Vital Signs: Date Time Temp Pulse Resp B/P B/P Pulse O2 O2 F low FiO2 Mean Ox Delivery Rate 09/18 0649 98.1 85 18 169/85 112.9 98 Room air 09/18 0524 79 14 169/88 114.7 98 09/18 0022 97.9 81 16 153/82 105.7 98 Room air 09/17 1837 97.7 90 16 178/86 116.7 98 Room air PATIENT WEIGHT: Weight (lb): 167 Weight (oz): 12.35 Weight (kg): 76.100 Medications: Active Meds + DC'd Last 24 Hrs Prednisone (predniSONE) 60 MG DAILY 0600 PO Furosemide (LASIX 40 mg/4 mL INJECTION) 40 MG Q8 HR IV Hydralazine HCl (APRESOLINE) 75 MG Q8HR PO Furosemide (LASIX 40 mg/4 mL INJECTION) 40 MG Q8 HR IV (DC) Hydralazine HCl (APRESOLINE) 50 MG Q8HR PO (DC) Daptomycin (CUBICIN 500MG) 500 MG Q48H IV Sodium Chloride (SODIUM CHLORIDE 0.9%) 50 ML Insulin Human Lispro (HUMALOG) 10 UNIT AC SUBQ Heparin Sodium (HEPARIN 5000 UNITS/ML) 5,000 UNI T Q12HR SUBQ Insulin Glargine (Semglee) 20 UNIT BEDTIME SUBQ Meropenem (MEROPENEM) 500 MG Q8H IV Sterile Water (WATER FOR INJECTION) 10 ML Carvedilol (COREG) 25 MG C BK DIN PO Gabapentin (NEURONTIN) 100 MG Q8HR PO Oxycodone/Acetaminophen (PERCOCET 5/325MG TAB) 2 TAB Q4H PRN PRN PO Folic Acid (FOLIC ACID) 2 MG DAILY PO Multivitamins (TAB-A-MOHAN) 1 TAB DAILY PO Furosemide (LASIX 20MG INJ) 20 MG BLOOD-DOSE BET WEEN IV (CKD) Sodium Chloride (SODIUM CHLORIDE) 10 ML ASDIR IV Pantoprazole Sodium (PROTONIX) 40 MG Q12HR IV Polyethylene Glycol (MIRALAX) 17 GM DAILY PO Sennosides (Senna Lax 8.6 MG TABLET) 8.6 MG MADALYN Y PO Sodium Chloride (SODIUM CHLORIDE) 10 ML ASDIR NV N IV Amitriptyline HCl (ELAVIL) 25 MG BEDTIME PO Zinc Oxide (ZINC OXIDE 30 GM OINTMENT) 1 APPLIC DAILY TOPICAL Sterile Water (WATER FOR IRRIGATION) DRESSING CH GELACIO ASDIR PRN IRR Insulin Human Lispro (HUMALOG) 0 AC HS SUBQ Dextrose/Water (DEXTROSE 10% IN WATER) 125 ML DIR PRN IV (CKD) Dextrose/Water (DEXTROSE 10% IN WATER) 250 ML DIR PRN IV (CKD) Glucagon (GLUCAGON) 1 MG ASDIR PRN IM Lidocaine (LIDODERM) 1 PATCH DAILY TOPICAL Acetaminophen (TYLENOL) 650 MG Q6H PRN PRN PO Bisacodyl (DULCOLAX) 10 MG DAILY PRN PRN RECTAL Docusate Sodium (COLACE) 100 MG Q12H PRN PRN PO Hydralazine HCl (APRESOLINE) 10 MG Q6H PRN PRN I V Ondansetron HCl (ZOFRAN) 4 MG Q6H PRN PRN IV Physical Exam General appearance: alert, awake, oriented Neck: no bruit/NL carotids, no JVD Cardiovascular: CV assessment: regular rate and rhythm, no ecto py, no gallop Respiratory: clear to auscultation, no distress Abdomen: soft, non-tender Lower extremity: LE assessment: edema, normal temperature 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 X 3 Considered stroke alert: no Wound/incision: Location: right bka Psychiatry: normal affect, normal judgment/insig ht, normal mood Results Findings/Data: Laboratory Tests 09/18 09/18 09/18 09/17 09/17 0906 0540 0505 1904 1554 Chemistry Sodium (134 - 147 mEq/L) 138 Potassium (3.4 - 5.0 mEq/L) 4.1 Chloride (100 - 108 mEq/L) 108 Carbon Dioxide (21 - 33 mEq/l) 21 Anion Gap (0 - 20) 13 BUN (7 - 18 mg/dL) 66 H Creatinine (0.6 - 1.3 mg/dL) 2.2 H Glomerular Filtr Rate (90 - 95) 33.9 L Glucose (70 - 110 mg/dL) 201 H POC Glucose (70 - 110 MG/DL) 171 H 203 H 160 H 75 Calcium (8.0 - 10.5 mg/dL) 7.5 L Phosphorus (2.5 - 4.9 MG/DL) 4.4 Magnesium (1.80 - 2.40 mg/dL) 1.83 Laboratory Tests 09/18 0505 Hematology WBC (4.5 - 11.0 x10 3/uL) 10.6 RBC (4.00 - 5.60 x10 6/uL) 2.67 L Hgb (12.5 - 16.9 g/dL) 7.6 L Hct (37.5 - 50.7 %) 23.7 L MCV (81.0 - 99.0 fL) 88.8 MCH (27.0 - 33.0 pg) 28.5 MCHC (33.0 - 37.0 g/dL) 32.1 L RDW (11.5 - 14.5 %) 14.8 H Plt Count (150 - 400 x10 3/uL) 341 MPV (7.0 - 9.0 fL) 9.2 H Neut % (Auto) (56.0 - 77.0 %) 74.6 Lymph % (Auto) (14.0 - 32.0 %) 17.4 Boundary % (Auto) (4.8 - 9.0 %) 6.9 Eos % (Auto) (0.3 - 3.7 %) 0.1 L Baso % (Auto) (0.0 - 2.0 %) 0.1 Neut # (Auto) (2.0 - 7.6 x10 3/uL) 7.91 H Lymph # (Auto) (1.0 - 3.8 x10 3/uL) 1.85 Boundary # (Auto) (0.1 - 0.8 x10 3/uL) 0.73 Eos # (Auto) (0.0 - 0.2 x10 3/uL) 0.01 Baso # (Auto) (0.0 - 0.2 x10 3/uL) 0.01 Abs Immat Gran (auto) (0.00 - 0.03 x10 3/uL) 0. 10 H Add Manual Diff NO Immature Gran % (0.0 - 2.0 %) 0.9 Nucleated RBC % (0 - 0 %) 0.0 Nucleated RBCs # (Man) (0.0 - 0.1 x10 3/uL) 0.0 0 Laboratory Tests 09/18 0505 Chemistry Magnesium (1.80 - 2.40 mg/dL) 1.83 Diagnosis, Assessment Plan Consultants: cardiology, endocrinology, hospital ist, infectious disease, podiatry Free Text DxA P Notes Free Text DxA P Notes: Impression: 1. Debility 2. Infected right foot status post BKA 3. Bacteremia 4. Diabetes 5. Hypertension 6. Anemia 7. Acute Diastolic CHF 07/2022: Echocardiogram with normal LVEF, grade 1 diastolic dysfunction, mildly dilated LA, and no significant valvular abnormal ities Recommendation: Patient initially presented with DKA and sepsis. Diagnosed with right foot infection, underwent I D, now status post BKA. P atient had persistent bacteremia with MRSA, underwent JIMENA with negativ e findings of endocarditis. Patient now transferred to [facility] for physical therapy. Known cardiac history of hypertension and hyperlipide renetta. Vital signs stable. Echocardiogram with normal LVEF, grade 1 diastolic dysfunction, mildly dila carlos LA, and no significant valvular abnormalities. Continue to monitor bloo d pressure trend. Continue wound care and IV antibiotic therapy. Continue P T/OT. Supportive care. 09/04: Patient complaining of shortness of breath, abdominal distention and lower extremity edema. Renal function and electrolytes stable. Will give one-time dose of IV Lasix 40 mg. Blood pressure stable. P ending abdominal x-ray. Monitor intake and output. Check BMP in the morn ing. Supportive care. Plan of care discussed with patient, RN and Dr. Parham. 09/05: Patient responded well to IV Lasix , good urine output and improvement in shortness of breath. Chest x-ray ordered . Currently on Lasix 20 mg p.o. daily. Continue monitor renal function and electrolyte s. Pending lower extremity Doppler for lower extremity edema. Continue PT/O T. Supportive care. Plan of care discussed with patient, RN and Dr. Parham. 09/08: Blood pressure has been elevated, started on Coreg 3.125 mg twice daily. Continue monitor blood pressure trend and adjust medication as needed. Still having left lower extremity edema, venous Dopple r negative for DVT. continue gentle diuresis with Lasix 20 mg p.o. daily. Rec ommend Oralia wrap. Patient remains anemic, plan for EGD/colonoscopy today. Supportive care. Plan of care discussed with patient, family, RN and Dr. Parham . 09/09: Patient doing well status post EGD /colonoscopy, negative findings for GI bleed. Blood pressure improving, increased on Co reg to 12.5 mg twice daily. Elevated creatinine noted, nephrology following. No new cardiac complaint. Continue wound care. Continue PT/OT. Supportive care. Plan of care discussed with patient, RN and Dr. Parham. 09/10: Blood pressure remained stable on current regimen of Coreg. Patient continue to have left lower extremity edema. Cur rently on Lasix 20 mg daily. Creatinine 1.9 today, continue to monito r. Patient's albumin level was 1.3, it is possible that patient's lower extremity edema could be related to hypoalbuminemia leading to third spacing. Contin ue PT/OT. Supportive care. Plan of care discussed with patient, RN and Dr. Parham. 09/11: Patient doing well from cardiac standpoint . Blood pressure well controlled. Improvement in lower extremity edema with elevating leg while in bed. Creatinine 2.0 today. Denies shortness of b reath. Will hold diuretic for now and monitor renal function. Supportive care. Plan of care discussed with patient, RN and Dr. Parham. 09/12: Creatinine remains elevated at 2.4 today, antibiotic regimen also being adjusted. Patient still with lower extremity rose ma and rales on physical examination. Will check chest x-ray and limited echocardiogram for further evaluation. Check BNP. Continue hold diuretic fo r now. Supportive care. Plan of care discussed with patient, RN and Dr. Parham . 09/15: Repeat echocardiogram showed LVEF of 55 to 60%, no regional wall motion abnormalities, left ventricu lar diastolic function parameters are indeterminate, mildly dilated LA, and no pericardial effusion. BNP elevated 297. Continue to hold diuretic due to Elevate d creatinine, nephrology following and may consider renal biopsy. Continue to monitor fluid volume s tatus. Overall improvement in lower extremity with Oralia wrap. Continue physical therapy. Supportive care. Plan of care discussed with patient, RN and Dr. Parham. 09/16: Blood pressure slightly elevated, started on hydralazine 25 mg every 8 hours. Continue carvedilol monitor blood pressur e trend. Cr. 2.7 today, continue monitor. Tolerating physical therapy. E uvolemic by physical examination. Supportive care. Plan of care discu ssed with patient, RN and Dr. Parham. 09/17: Blood pressure remains elevated, likely re lated to steroid therapy. Hydralazine increased to 50 mg 3 times daily. Ne phrology managing diuretic therapy. Continue monitor renal function and pako ctrolytes. Improvement in lower extremity swelling. Patient denies chest p ain or shortness of breath. Tolerating PT/OT. Supportive care. Plan of care discussed with patient, RN and Dr. Parham. 09/18: Blood pressure remains elevated du e to steroid therapy. Continue monitor blood pressure trend, hydralazine increa sed to 75 mg 3 times daily. Responding to diuretic regimen with Lasix, good urine outpu t. Creatinine improving, 2.2 today. Continue to monitor fluid volume status. Continue physical therapy. Supportive care. Plan of care discussed with lori hart RN and Dr. Parham. Gianni Parham 09/19/22 0915: Diagnosis, Assessment Plan Additional comments: Patient was seen and examined at bedside , agree with above assessment and plan as documented by nurse practitioner. Will follow . Electronically Signed by Rohit Benitez NP on 0 09/18/22 at 1946 at 0916 RPT #:[id number] END OF REPORT 2022-09-18 10:37:00-00:00 [facility] ([facility]) Infectious Dis. Progress Note REPORT#:[id number] REPORT STATUS: Signed DATE:09/18/22 TIME: 1037 PATIENT: KARMA ROWLAND UNIT #: [id number] ROOM/BED: [place] [address] : 63 AGE: 56 SEX: M ATTEND: Fredy Vences MD ADM AUTHOR: Linda Anderson MD * ALL edits or amendments must be made on the el [employer]/computer document * Subjective HPI: PT is a 56yr old male with h istory of diabetes mellitus type 2, hypertension who was admitted with altered mental status and righ t-sided foot infection. According to him, he noticed a blister on his right foot around 3 days prior to presentation. His foot got progressively more sw ollen and erythema extended proximally to his lateral foot and ankle. CT abd omen and pelvis with contrast is concerning for possible prostate abscess. CT of lower extremity without contrast shows extensive sof t tissue edema with mottled gas in the subcutaneous and intramuscular compartments of the foot, comp atible with gas-forming infection. Patient's blood cultures have come ba ck positive for MRSA in 2 out of 2 sets. PT has had persistent (+)Ve cx for MR FREITAS 08/18- 08/22. He underwent a debridement of his foot on 08/19 and cx g rew MRSA. PT was started on Vancomycin and clindamycin on 08/18. His MRI showed a prosta te abscess. 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 Pt underwent a transrectal aspiration and unroofing of prostate abscess 08/26 and cx grew Citrobacter, Enterococcus, MRSA. 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 JIMENA done 09/02. Pt was tr ansferred to Rehab on 09/02. Patient reports: No: cough, diarrhea, fever, headache, nausea, vo miting. Comments: Pt states the swelling in his legs has gone down Portions of this section wer e scribed by Jill Quintero on 09/18/22 at 2035 Objective General VS/I O: Vital Signs Date Temp Pulse Resp B/P B/P Mean Pulse Ox FiO2 09/17-09/18 97.7-98.1 79-90 14-18 153-178/82-88 105.7-116.7 98 Last Documented: Result Date Time Pulse Ox 98 09/18 0649 B/P 169/85 09/18 0649 B/P Mean 112.9 09/18 0649 O2 Delivery Room air 09/18 0649 Temp 98.1 09/18 0649 Pulse 85 09/18 0649 Resp 18 09/18 0649 O2 Flow Rate 2 09/08 1322 Vital Signs: Date Time Temp Pulse Resp B/P B/P Pulse O2 O2 F low FiO2 Mean Ox Delivery Rate 09/18 0649 98.1 85 18 169/85 112.9 98 Room air 09/18 0524 79 14 169/88 114.7 98 09/18 0022 97.9 81 16 153/82 105.7 98 Room air 09/17 1837 97.7 90 16 178/86 116.7 98 Room air 24 hour I O ending at 0700: 09/18 0700 09/17 1900 Intake Total 200 835 Output Total 2700 Balance -2500 835 Intake, Oral 200 835 Number 0 Incontinent Voids Number Voids 0 Output, Urine 2700 Patient 76.1 kg Weight Weight Bed scale Measurement Method PATIENT WEIGHT: Weight (lb): 167 Weight (oz): 12.35 Weight (kg): 76.100 Antibiotic start date: Antibiotic: vancomycin Start Date:09/03-09/12 Antibiotic: daptomycin Start Date:08/28-09/03, restarted on 09/12 Antibiotic: cefepime Start Date:09/01-09/12 Antibiotic: merrem Start Date:08/27-09/01, 09/12- Physical Exam General appearance: alert, awake, oriented Head/Eyes: atraumatic, clear cornea, EOMI, felisa l conjunctiva/sclera, normal eyelids/periorb, normocephalic, PERRL ENT: moist mucosal membranes, normal dentition Neck: full range of motion Cardiovascular: normal heart sounds, regular rat e rhythm Respiratory: clear to auscultation, aerating wel l Abdomen: non-tender, normal bowel sounds, soft Extremities: edema (in left leg and thig h improved), moves all, right BKA Left foot wound +dressing in place 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 X 3 Considered stroke alert: no Skin: dry, intact Results Findings/Data: Laboratory Tests 09/18 09/18 09/18 09/17 09/17 0906 0540 0505 1904 1554 Chemistry Sodium (134 - 147 mEq/L) 138 Potassium (3.4 - 5.0 mEq/L) 4.1 Chloride (100 - 108 mEq/L) 108 Carbon Dioxide (21 - 33 mEq/l) 21 Anion Gap (0 - 20) 13 BUN (7 - 18 mg/dL) 66 H Creatinine (0.6 - 1.3 mg/dL) 2.2 H Glomerular Filtr Rate (90 - 95) 33.9 L Glucose (70 - 110 mg/dL) 201 H POC Glucose (70 - 110 MG/DL) 171 H 203 H 160 H 75 Calcium (8.0 - 10.5 mg/dL) 7.5 L Phosphorus (2.5 - 4.9 MG/DL) 4.4 Magnesium (1.80 - 2.40 mg/dL) 1.83 Laboratory Tests 09/18 0505 Hematology WBC (4.5 - 11.0 x10 3/uL) 10.6 RBC (4.00 - 5.60 x10 6/uL) 2.67 L Hgb (12.5 - 16.9 g/dL) 7.6 L Hct (37.5 - 50.7 %) 23.7 L MCV (81.0 - 99.0 fL) 88.8 MCH (27.0 - 33.0 pg) 28.5 MCHC (33.0 - 37.0 g/dL) 32.1 L RDW (11.5 - 14.5 %) 14.8 H Plt Count (150 - 400 x10 3/uL) 341 MPV (7.0 - 9.0 fL) 9.2 H Neut % (Auto) (56.0 - 77.0 %) 74.6 Lymph % (Auto) (14.0 - 32.0 %) 17.4 Boundary % (Auto) (4.8 - 9.0 %) 6.9 Eos % (Auto) (0.3 - 3.7 %) 0.1 L Baso % (Auto) (0.0 - 2.0 %) 0.1 Neut # (Auto) (2.0 - 7.6 x10 3/uL) 7.91 H Lymph # (Auto) (1.0 - 3.8 x10 3/uL) 1.85 Boundary # (Auto) (0.1 - 0.8 x10 3/uL) 0.73 Eos # (Auto) (0.0 - 0.2 x10 3/uL) 0.01 Baso # (Auto) (0.0 - 0.2 x10 3/uL) 0.01 Abs Immat Gran (auto) (0.00 - 0.03 x10 3/uL) 0. 10 H Add Manual Diff NO Immature Gran % (0.0 - 2.0 %) 0.9 Nucleated RBC % (0 - 0 %) 0.0 Nucleated RBCs # (Man) (0.0 - 0.1 x10 3/uL) 0.0 0 Laboratory Tests: 09/18 09/18 09/18 09/17 0906 0540 0507 1904 Chemistry Sodium (134 - 147 mEq/L) 138 Potassium (3.4 - 5.0 mEq/L) 4.1 Chloride (100 - 108 mEq/L) 108 Carbon Dioxide (21 - 33 mEq/l) 21 Anion Gap (0 - 20) 13 BUN (7 - 18 mg/dL) 66 H Creatinine (0.6 - 1.3 mg/dL) 2.2 H Glomerular Filtr Rate (90 - 95) 33.9 L Glucose (70 - 110 mg/dL) 201 H POC Glucose (70 - 110 MG/DL) 171 H 203 H 160 H Calcium (8.0 - 10.5 mg/dL) 7.5 L Phosphorus (2.5 - 4.9 MG/DL) 4.4 Magnesium (1.80 - 2.40 mg/dL) 1.83 Hematology WBC (4.5 - 11.0 x10 3/uL) 10.6 RBC (4.00 - 5.60 x10 6/uL) 2.67 L Hgb (12.5 - 16.9 g/dL) 7.6 L Hct (37.5 - 50.7 %) 23.7 L MCV (81.0 - 99.0 fL) 88.8 MCH (27.0 - 33.0 pg) 28.5 MCHC (33.0 - 37.0 g/dL) 32.1 L RDW (11.5 - 14.5 %) 14.8 H Plt Count (150 - 400 x10 3/uL) 341 MPV (7.0 - 9.0 fL) 9.2 H Neut % (Auto) (56.0 - 77.0 %) 74.6 Lymph % (Auto) (14.0 - 32.0 %) 17.4 Boundary % (Auto) (4.8 - 9.0 %) 6.9 Eos % (Auto) (0.3 - 3.7 %) 0.1 L Baso % (Auto) (0.0 - 2.0 %) 0.1 Neut # (Auto) (2.0 - 7.6 x10 3/uL) 7.91 H Lymph # (Auto) (1.0 - 3.8 x10 3/uL) 1.85 Boundary # (Auto) (0.1 - 0.8 x10 3/uL) 0.73 Eos # (Auto) (0.0 - 0.2 x10 3/uL) 0.01 Baso # (Auto) (0.0 - 0.2 x10 3/uL) 0.01 Abs Immat Gran (auto) (0.00 - 0.03 x10 3/uL) 0. 10 H Add Manual Diff NO Immature Gran % (0.0 - 2.0 %) 0.9 Nucleated RBC % (0 - 0 %) 0.0 Nucleated RBCs # (Man) (0.0 - 0.1 x10 3/uL) 0.0 0 09/17 09/17 09/17 09/17 09/17 1554 1027 0951 0601 0451 Chemistry POC Glucose (70 - 110 MG/DL) 75 256 H 287 H 286 H 273 H 09/17 09/16 09/16 09/16 0450 2345 1931 1549 Chemistry Sodium (134 - 147 mEq/L) 136 Potassium (3.4 - 5.0 mEq/L) 4.5 Chloride (100 - 108 mEq/L) 107 Carbon Dioxide (21 - 33 mEq/l) 21 Anion Gap (0 - 20) 12 BUN (7 - 18 mg/dL) 66 H Creatinine (0.6 - 1.3 mg/dL) 2.4 H Glomerular Filtr Rate (90 - 95) 30.5 L Glucose (70 - 110 mg/dL) 285 H POC Glucose (70 - 110 MG/DL) 291 H 219 H 62 L Calcium (8.0 - 10.5 mg/dL) 7.4 L Phosphorus (2.5 - 4.9 MG/DL) 4.5 Magnesium (1.80 - 2.40 mg/dL) 1.97 Hematology WBC (4.5 - 11.0 x10 3/uL) 8.9 RBC (4.00 - 5.60 x10 6/uL) 2.83 L Hgb (12.5 - 16.9 g/dL) 8.1 L Hct (37.5 - 50.7 %) 24.9 L MCV (81.0 - 99.0 fL) 88.0 MCH (27.0 - 33.0 pg) 28.6 MCHC (33.0 - 37.0 g/dL) 32.5 L RDW (11.5 - 14.5 %) 14.6 H Plt Count (150 - 400 x10 3/uL) 374 MPV (7.0 - 9.0 fL) 9.6 H Neut % (Auto) (56.0 - 77.0 %) 85.2 H Lymph % (Auto) (14.0 - 32.0 %) 10.2 L Boundary % (Auto) (4.8 - 9.0 %) 2.9 L Eos % (Auto) (0.3 - 3.7 %) 0.0 L Baso % (Auto) (0.0 - 2.0 %) 0.1 Neut # (Auto) (2.0 - 7.6 x10 3/uL) 7.58 Lymph # (Auto) (1.0 - 3.8 x10 3/uL) 0.91 L Boundary # (Auto) (0.1 - 0.8 x10 3/uL) 0.26 Eos # (Auto) (0.0 - 0.2 x10 3/uL) 0.00 Baso # (Auto) (0.0 - 0.2 x10 3/uL) 0.01 Abs Immat Gran (auto) (0.00 - 0.03 x10 3/uL) 0. 14 H Add Manual Diff NO Immature Gran % (0.0 - 2.0 %) 1.6 Nucleated RBC % (0 - 0 %) 0.0 Nucleated RBCs # (Man) (0.0 - 0.1 x10 3/uL) 0.0 0 09/16 09/16 1441 1110 Chemistry POC Glucose (70 - 110 MG/DL) 60 L 148 H Medication(s) Ordered: Anti-Infective Agents Sig/Jan Start time Last Medication Dose Route Stop Time Status Admin Daptomycin 500 MG Q48H 09/16 1200 AC 09/16 Sodium Chloride 50 ML IV 09/22 1229 1154 Meropenem 500 MG Q8H 09/15 1200 AC 09/18 Sterile Water 10 ML IV 09/22 1159 0459 Blood Formation,Coagulation Sig/Jan Start time Last Medication Dose Route Stop Time Status Admin Heparin Sodium 5,000 UNIT Q12HR 09/15 2100 AC 0 09/18 SUBQ 10/15 2058 0934 Cardiovascular Drugs Sig/Jan Start time Last Medication Dose Route Stop Time Status Admin Hydralazine HCl 75 MG Q8HR 09/18 1400 AC PO 10/18 1359 Hydralazine HCl 50 MG Q8HR 09/17 1400 DC 09/18 PO 10/17 1359 0457 Carvedilol 25 MG C BK DIN 09/13 1700 AC 09/18 PO 10/13 1659 0935 Hydralazine HCl 10 MG Q6H PRN PRN 09/01 1330 AC IV 10/01 1329 Central Nervous System Agents Sig/Jan Start time Last Medication Dose Route Stop Time Status Admin Gabapentin 100 MG Q8HR 09/10 1400 AC 09/18 PO 10/10 1359 0459 Oxycodone/ 2 TAB Q4H PRN PRN 09/10 0715 AC 08/24 7 Acetaminophen PO 10/10 1300 0931 Amitriptyline HCl 25 MG BEDTIME 09/04 2100 AC 0 09/17 PO 10/04 205 2107 Acetaminophen 650 MG Q6H PRN PRN 09/01 1330 AC PO 10/01 1329 Electrolytic, Caloric, And Daniel Sig/Jan Start time Last Medication Dose Route Stop Time Status Admin Furosemide 40 MG Q8HR 09/18 1400 AC IV 09/19 0601 Furosemide 40 MG Q8HR 09/17 1400 DC 09/18 IV 09/18 0601 0459 Furosemide 20 MG BLOOD-DOSE BETWEEN 09/05 1245 CKD IV 10/05 1244 Sodium Chloride 10 ML ASDIR 09/05 1245 AC IV 10/05 1244 Sodium Chloride 10 ML ASDIR PRN 09/05 0630 AC 0 09/15 IV 10/05 0629 0912 Sterile Water See Dose ASDIR PRN 09/03 2030 AC Insts (1) IRR 10/03 202 Dextrose/Water 125 ML ASDIR PRN 09/03 1515 CKD IV 10/03 1514 Dextrose/Water 250 ML ASDIR PRN 09/03 1515 CKD 09/09 IV 10/03 1514 1529 Gastrointestinal Drugs Sig/Jan Start time Last Medication Dose Route Stop Time Status Admin Pantoprazole Sodium 40 MG Q12HR 09/05 0900 AC 0 09/18 IV 10/05 0859 0935 Polyethylene Glycol 17 GM DAILY 09/05 09 AC 0 09/17 PO 10/05 0859 0901 Sennosides 8.6 MG DAILY 04/14 0900 AC 09/18 PO 10/05 0859 0934 Bisacodyl 10 MG DAILY PRN PRN 09/01 1330 AC RECTAL 10/01 1329 Docusate Sodium 100 MG Q12H PRN PRN 09/01 1330 AC 09/13 PO 10/01 1329 1021 Ondansetron HCl 4 MG Q6H PRN PRN 09/01 1330 AC IV 10/01 1329 Hormones And Synthetic Substit Sig/Jan Start time Last Medication Dose Route Stop Time Status Admin Prednisone 60 MG DAILY 0609/19 0600 AC PO 09/21 0601 Insulin Human Lispro 10 UNIT AC 09/16 0730 AC 0 09/18 SUBQ 10/16 0729 0932 Insulin Glargine 20 UNIT BEDTIME 09/15 2100 AC 09/17 SUBQ 10/15 205 210 Insulin Human Lispro 0 AC HS 09/03 1630 AC 08/24 6 SUBQ 10/03 1629 1233 Glucagon 1 MG ASDIR PRN 09/03 1515 AC IM 10/03 1514 Local Anesthetics (Parenteral) Sig/Jan Start time Last Medication Dose Route Stop Time Status Admin Lidocaine 1 PATCH DAILY 09/03 09 AC 09/18 TOPICAL 10/03 0859 0938 Skin And Mucous Membrane Agent Sig/Jan Start time Last Medication Dose Route Stop Time Status Admin Zinc Oxide 1 APPLIC DAILY 09/04 899 AC 09/18 TOPICAL 10/04 0859 0936 Vitamins Sig/Jan Start time Last Medication Dose Route Stop Time Status Admin Folic Acid 2 MG DAILY 09/09 09 AC 09/18 PO 10/09 0859 0935 Multivitamins 1 TAB DAILY 09/09 899 AC 09/18 PO 10/09 0859 0952 Dose Instructions: (1)Sterile Water: DRESSING CHANGE Portions of this section wer e scribed by Jill Quintero on 09/18/22 at 2036 Treatment Prophylaxis Treatment Prophylaxis Lines: PICC CVC/PICC documentation: The data below has been imported from nursing do cumentation. Any exceptions have been noted below under Provider comments. CVC/PICC insertion date/time : PICC single lumen Arm upper Right Inserted 1720 Provider comments on imported nursing data: [] Portions of this section wer e scribed by Jill Quintero on 09/18/22 at 1037 Diagnosis, Assessment Plan Free Text A P: *MRSA bacteremia -Initial blood cultures from 08/18/2022 positive for MRSA in 2 out of 2 sets. -Repeat blood cultures 08/21/2022 are already po sitive for MRSA in 2 out of 2 sets, suggesting persistent high-grade bacteremi a. -TTE 08/18/2022 negative for any obvious vegetat ions. -08/28 neg -JIMENA 09/02 neg *Prostatic abscess -s/p transrectal aspiration and unroofing on 08/26 -cx MRSA, citrobacter (r-cefazolin) Enterococcus raffinosus (S-amp,pcn, vancomycin), bacteriodes *ERIKA -nephrology following; worsening *Hyponatremia *Diabetic neuropathy *Diabetes mellitus type 2 *Hypertension *anemia 09/08 -cont on Cefepime and vancomycin til 5/3 for kellen atment of Prostate abscess -follow esr and crp -EGD today 09/09 -on cefepime and vancomycin til 5/3 for treatmen t of prostate abscess 09/10 on cefepime and vancomycin til 5/3 for treatment of prostate abscess check esr and crp in am 09/11 on cefepime and vancomycin til 5/3 for t reatment of prostate abscess; if pt is discharge before 09/24 can change to oral abx 09/12 on cefepime and vancomycin til 5/3 for treatment of prostate abscess; will change to Merrem 500mg Iv Q12hrs and Daptomycin as creat is worsening 09/15 on Merrem and Daptomycin til 5/3 creat still elevated: nephrology following 09/16 On Merrem and Daptomycin til 5/3 monitor creat. ; improving; nephrology following follow esr and crp 09/17 On Merrem and Daptomycin til 5/3 monitor creat. ; improving; nephrology following follow esr and crp remains afebrile; WBC normal 09/18 no changes overnight on Merrem and Dapotomycin til 5/3 creat improving swelling improved Consultants: cardiology, endocrinology, hospital ist, infectious disease, podiatry Portions of this section wer e scribed by Jill Quintero on 09/18/22 at 2036 at [address] [facility] #:[id number] END OF REPORT 2022-09-18 07:55:00-00:[address] [facility] ([facility]) Nephrology Progress Note REPORT#:[id number] REPORT STATUS: Signed DATE:09/18/22 TIME: 075 PATIENT: KARMA ROWLAND UNIT #: [id number] ROOM/BED: [place] [address] : 63 AGE: 56 SEX: M ATTEND: Fredy Vences MD ADM AUTHOR: Barrera Ramírez MD * ALL edits or amendments must be made on the el [employer]/computer document * Subjective Chief complaint: Infected foot HPI: Patient seen and evaluated on 09/09/2022, note [facility], records reviewed and orders placed on 09/08/2022, 56-year-old male with history of diabetes mellitus type 2, hypertension and per ipheral vascular disease who was initially admitted to acute care with altered mental status and rig ht foot infection/gangrene, 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 Patient had persistent anemia requiring blood transfusion. H is fecal occult blood was positive and his creatinine was 1.2 and increase d to 1.4 today, laboratories today showed hemoglobin 8.5, platelet 231, blood count 9.1, sodium 135, potassium 4.6, CO2 22, BUN 22, creatinin e 1.4. Renal consult was requested for evaluation management of pako vated BUN and creatinine and if his decreased GFR is contributing to his anemia. Patient reports: Yes: complaints. Comments: Patient seen and evaluated, HPI no change from i nitial, feels okay. Review of Systems Constitutional: Reports: fatigue. Denies: chills, fever. Skin: Reports: swelling. Denies: rash. Allergy/Immun: Denies: hives, itching. Eyes: Denies: redness, discharge. ENT: Denies: ear drainage, ear ringing. Respiratory: Denies: hemoptysis, SOB. Cardiovascular: Denies: chest pain. Objective General VS/I O: Vital Signs: Date Time Temp Pulse Resp B/P B/P Pulse O2 O2 Flow FiO2 Mean Ox Delivery Rate 09/18 0649 36.7 85 18 169/85 112.9 98 Room air 09/18 0524 79 14 169/88 114.7 98 09/18 0022 36.6 81 16 153/82 105.7 98 Room air 09/17 1837 36.5 90 16 178/86 116.7 98 Room air 09/17 0955 87 19 184/87 119.5 96 Room air 24 hour I O ending at 0700: 09/18 0700 09/17 1900 Intake Total 200 835 Output Total 2700 Balance -2500 835 Intake, Oral 200 835 Number 0 Incontinent Voids Number Voids 0 Output, Urine 2700 Patient 76.1 kg Weight Weight Bed scale Measurement Method PATIENT WEIGHT: Weight (lb): 167 Weight (oz): 12.35 Weight (kg): 76.100 Medications Active Meds + DC'd Last 24 Hrs Furosemide (LASIX 40 mg/4 mL INJECTION) 40 MG Q8 HR IV (DC) Hydralazine HCl (APRESOLINE) 50 MG Q8HR PO Furosemide (LASIX 40 mg/4 mL INJECTION) 40 MG Q8 HR IV (DC) Daptomycin (CUBICIN 500MG) 500 MG Q48H IV Sodium Chloride (SODIUM CHLORIDE 0.9%) 50 ML Insulin Human Lispro (HUMALOG) 10 UNIT AC SUBQ Heparin Sodium (HEPARIN 5000 UNITS/ML) 5,000 UNI T Q12HR SUBQ Insulin Glargine (Semglee) 20 UNIT BEDTIME SUBQ Meropenem (MEROPENEM) 500 MG Q8H IV Sterile Water (WATER FOR INJECTION) 10 ML Carvedilol (COREG) 25 MG C BK DIN PO Gabapentin (NEURONTIN) 100 MG Q8HR PO Oxycodone/Acetaminophen (PERCOCET 5/325MG TAB) 2 TAB Q4H PRN PRN PO Folic Acid (FOLIC ACID) 2 MG DAILY PO Multivitamins (TAB-A-MOHAN) 1 TAB DAILY PO Furosemide (LASIX 20MG INJ) 20 MG BLOOD-DOSE BET WEEN IV (CKD) Sodium Chloride (SODIUM CHLORIDE) 10 ML ASDIR IV Pantoprazole Sodium (PROTONIX) 40 MG Q12HR IV Polyethylene Glycol (MIRALAX) 17 GM DAILY PO Sennosides (Senna Lax 8.6 MG TABLET) 8.6 MG MADALYN Y PO Sodium Chloride (SODIUM CHLORIDE) 10 ML ASDIR NV N IV Amitriptyline HCl (ELAVIL) 25 MG BEDTIME PO Zinc Oxide (ZINC OXIDE 30 GM OINTMENT) 1 APPLIC DAILY TOPICAL Sterile Water (WATER FOR IRRIGATION) DRESSING CH GELACIO ASDIR PRN IRR Insulin Human Lispro (HUMALOG) 0 AC HS SUBQ Dextrose/Water (DEXTROSE 10% IN WATER) 125 ML DIR PRN IV (CKD) Dextrose/Water (DEXTROSE 10% IN WATER) 250 ML DIR PRN IV (CKD) Glucagon (GLUCAGON) 1 MG ASDIR PRN IM Lidocaine (LIDODERM) 1 PATCH DAILY TOPICAL Acetaminophen (TYLENOL) 650 MG Q6H PRN PRN PO Bisacodyl (DULCOLAX) 10 MG DAILY PRN PRN RECTAL Docusate Sodium (COLACE) 100 MG Q12H PRN PRN PO Hydralazine HCl (APRESOLINE) 10 MG Q6H PRN PRN I V Ondansetron HCl (ZOFRAN) 4 MG Q6H PRN PRN IV Physical Exam General appearance: alert, no acute distress Head/eyes: atraumatic, normocephalic ENT: normal nose Neck: non-tender, supple/no meningismus Cardiovascular: normal heart sounds, no rub Respiratory: aerating well, symmetric expansion Abdomen: non-tender, soft Genitourinary: no flank pain Extremities: non-tender, no edema Musculoskeletal: no CVA tenderness, no tendernes s 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, 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 Considered stroke alert: no Skin: dry, intact Results Findings/Data: Laboratory Tests 09/18 09/18 09/17 09/17 09/17 0540 0505 1904 1554 1027 Chemistry Sodium (134 - 147 mEq/L) 138 Potassium (3.4 - 5.0 mEq/L) 4.1 Chloride (100 - 108 mEq/L) 108 Carbon Dioxide (21 - 33 mEq/l) 21 Anion Gap (0 - 20) 13 BUN (7 - 18 mg/dL) 66 H Creatinine (0.6 - 1.3 mg/dL) 2.2 H Glomerular Filtr Rate (90 - 95) 33.9 L Glucose (70 - 110 mg/dL) 201 H POC Glucose (70 - 110 MG/DL) 203 H 160 H 75 256 H Calcium (8.0 - 10.5 mg/dL) 7.5 L Phosphorus (2.5 - 4.9 MG/DL) 4.4 Magnesium (1.80 - 2.40 mg/dL) 1.83 09/17 09/17 09/17 09/17 09/16 0951 0601 0451 0450 2345 Chemistry Sodium (134 - 147 mEq/L) 136 Potassium (3.4 - 5.0 mEq/L) 4.5 Chloride (100 - 108 mEq/L) 107 Carbon Dioxide (21 - 33 mEq/l) 21 Anion Gap (0 - 20) 12 BUN (7 - 18 mg/dL) 66 H Creatinine (0.6 - 1.3 mg/dL) 2.4 H Glomerular Filtr Rate (90 - 95) 30.5 L Glucose (70 - 110 mg/dL) 285 H POC Glucose (70 - 110 MG/DL) 287 H 286 H 273 H 291 H Calcium (8.0 - 10.5 mg/dL) 7.4 L Phosphorus (2.5 - 4.9 MG/DL) 4.5 Magnesium (1.80 - 2.40 mg/dL) 1.97 09/16 09/16 09/16 09/16 09/16 1931 1549 1441 1110 0553 Chemistry POC Glucose (70 - 110 MG/DL) 219 H 62 L 60 L 14 8 H 195 H 09/16 09/15 09/15 09/15 0455 1937 1640 1154 Chemistry Sodium (134 - 147 mEq/L) 135 Potassium (3.4 - 5.0 mEq/L) 4.5 Chloride (100 - 108 mEq/L) 108 Carbon Dioxide (21 - 33 mEq/l) 20 L Anion Gap (0 - 20) 11 BUN (7 - 18 mg/dL) 60 H Creatinine (0.6 - 1.3 mg/dL) 2.7 H Glomerular Filtr Rate (90 - 95) 26.5 L Glucose (70 - 110 mg/dL) 175 H POC Glucose (70 - 110 MG/DL) 124 H 137 H 126 H Calcium (8.0 - 10.5 mg/dL) 7.5 L Phosphorus (2.5 - 4.9 MG/DL) 4.6 Magnesium (1.80 - 2.40 mg/dL) 1.93 Laboratory Tests 09/18 09/17 09/16 0505 0450 0455 Hematology WBC (4.5 - 11.0 x10 3/uL) 10.6 8.9 9.5 RBC (4.00 - 5.60 x10 6/uL) 2.67 L 2.83 L 2.70 L Hgb (12.5 - 16.9 g/dL) 7.6 L 8.1 L 7.6 L Hct (37.5 - 50.7 %) 23.7 L 24.9 L 23.7 L MCV (81.0 - 99.0 fL) 88.8 88.0 87.8 MCH (27.0 - 33.0 pg) 28.5 28.6 28.1 MCHC (33.0 - 37.0 g/dL) 32.1 L 32.5 L 32.1 L RDW (11.5 - 14.5 %) 14.8 H 14.6 H 14.6 H Plt Count (150 - 400 x10 3/uL) 341 374 360 MPV (7.0 - 9.0 fL) 9.2 H 9.6 H 9.6 H Neut % (Auto) (56.0 - 77.0 %) 74.6 85.2 H 73.4 Lymph % (Auto) (14.0 - 32.0 %) 17.4 10.2 L 18.6 Boundary % (Auto) (4.8 - 9.0 %) 6.9 2.9 L 6.7 Eos % (Auto) (0.3 - 3.7 %) 0.1 L 0.0 L 0.2 L Baso % (Auto) (0.0 - 2.0 %) 0.1 0.1 0.1 Neut # (Auto) (2.0 - 7.6 x10 3/uL) 7.91 H 7.58 6.99 Lymph # (Auto) (1.0 - 3.8 x10 3/uL) 1.85 0.91 L 1.77 Boundary # (Auto) (0.1 - 0.8 x10 3/uL) 0.73 0.26 0. 64 Eos # (Auto) (0.0 - 0.2 x10 3/uL) 0.01 0.00 0.0 2 Baso # (Auto) (0.0 - 0.2 x10 3/uL) 0.01 0.01 0. 01 Abs Immat Gran (auto) (0.00 - 0.03 x10 3/uL) 0. 10 H 0.14 H 0.10 H Add Manual Diff NO NO NO Immature Gran % (0.0 - 2.0 %) 0.9 1.6 1.0 Nucleated RBC % (0 - 0 %) 0.0 0.0 0.0 Nucleated RBCs # (Man) (0.0 - 0.1 x10 3/uL) 0.0 0 0.00 0.00 Laboratory Tests 09/16 0455 Immunology Complement C3 (82 - 167 mg/dL) 121 Complement C4 (12 - 38 mg/dL) 31 Laboratory Tests 09/15 1304 Urines Urine Color (YEL/STRAW) YELLOW Urine Appearance (CLEAR) SL CLOUDY Urine pH (5.0 - 7.0) 5.0 Ur Specific [place] (1.005 - 1.030) 1.013 Urine Protein (NEGATIVE) 2+ H Urine Glucose (UA) (NEGATIVE) 2+ H Urine Ketones (NEGATIVE) NEGATIVE Urine Blood (NEGATIVE) 2+ H Urine Nitrite (NEGATIVE) NEGATIVE Urine Bilirubin (NEGATIVE) NEGATIVE Urine Urobilinogen (0.2 - 1.0 mg/dL) 0.2 Ur Leukocyte Esterase (NEGATIVE) TRACE H Urine RBC (0 - 3 RBC/HPF) 21-50 Urine WBC (0 - 3 WBC/HPF) 4-9 H Ur Squamous Epith Cells (NONE SEEN /HPF) 0-5 Ur Transition Epith Cell (NONE SEEN /HPF) TRACE Urine Bacteria (NONE SEEN /HPF) TRACE Granular Casts (NONE /LPF) 3-5 Urine Mucus (NONE SEEN /LPF) TRACE Ur Random Creatinine (mg/dL) 52.5 U Random Total Protein (mg/dL) 283 Laboratory Tests 09/18 09/18 09/17 09/17 09/17 0540 0505 1904 1554 1027 Chemistry Sodium (134 - 147 mEq/L) 138 Potassium (3.4 - 5.0 mEq/L) 4.1 Chloride (100 - 108 mEq/L) 108 Carbon Dioxide (21 - 33 mEq/l) 21 Anion Gap (0 - 20) 13 BUN (7 - 18 mg/dL) 66 H Creatinine (0.6 - 1.3 mg/dL) 2.2 H Glomerular Filtr Rate (90 - 95) 33.9 L Glucose (70 - 110 mg/dL) 201 H POC Glucose (70 - 110 MG/DL) 203 H 160 H 75 256 H Calcium (8.0 - 10.5 mg/dL) 7.5 L Phosphorus (2.5 - 4.9 MG/DL) 4.4 Magnesium (1.80 - 2.40 mg/dL) 1.83 09/17 0951 Chemistry POC Glucose (70 - 110 MG/DL) 287 H Laboratory Tests 09/18 0505 Hematology WBC (4.5 - 11.0 x10 3/uL) 10.6 RBC (4.00 - 5.60 x10 6/uL) 2.67 L Hgb (12.5 - 16.9 g/dL) 7.6 L Hct (37.5 - 50.7 %) 23.7 L MCV (81.0 - 99.0 fL) 88.8 MCH (27.0 - 33.0 pg) 28.5 MCHC (33.0 - 37.0 g/dL) 32.1 L RDW (11.5 - 14.5 %) 14.8 H Plt Count (150 - 400 x10 3/uL) 341 MPV (7.0 - 9.0 fL) 9.2 H Neut % (Auto) (56.0 - 77.0 %) 74.6 Lymph % (Auto) (14.0 - 32.0 %) 17.4 Boundary % (Auto) (4.8 - 9.0 %) 6.9 Eos % (Auto) (0.3 - 3.7 %) 0.1 L Baso % (Auto) (0.0 - 2.0 %) 0.1 Neut # (Auto) (2.0 - 7.6 x10 3/uL) 7.91 H Lymph # (Auto) (1.0 - 3.8 x10 3/uL) 1.85 Boundary # (Auto) (0.1 - 0.8 x10 3/uL) 0.73 Eos # (Auto) (0.0 - 0.2 x10 3/uL) 0.01 Baso # (Auto) (0.0 - 0.2 x10 3/uL) 0.01 Abs Immat Gran (auto) (0.00 - 0.03 x10 3/uL) 0. 10 H Add Manual Diff NO Immature Gran % (0.0 - 2.0 %) 0.9 Nucleated RBC % (0 - 0 %) 0.0 Nucleated RBCs # (Man) (0.0 - 0.1 x10 3/uL) 0. 00 Diagnosis, Assessment Plan Free Text A P: Patient seen and evaluated, discussed with care team, images and laboratories reviewed. Diabetes mellitus: Insulin: Monitor bloo d sugar closely and adjust medications as needed, followed by endocrinology. Hypertension: Blood pressure is not well controlled, increase Coreg to 12.5 mg p.o. 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 We will check serum immu nofixation. Acute kidney injury: We will check renal bladder ultrasound, check postvoid residual, check urine protein creatinine ratio Hypomagnesemia: We will supplement 09/10/2022 laboratory this mo rning showed sodium 135, potassium 4.2, CO2 21, BUN 25, creatinine 1.9 continues to worsen, etiology unclear, however his development some eosinophili a not sure if he is developing AIN, suggest changing cefepime to a different class of antibiotic if p ossible, will check renal bladder ultrasound 09/11/2022 laboratory this mo rning showed sodium 134, potassium 4.3, CO2 22, BUN 26, creatinine 2 up from 1.9, hopefully creatini ne is plateauing, renal ultrasound negative. 09/12/2022 laboratory this mo rning showed sodium 134, potassium 4.2, CO2 20, BUN 31, creatinine 2.4 continues to worsen, discussed with ID, AIN is probably the etiology of the unexplained deterioration of his renal function, antibiotics to be adjusted by infectious disease, will give Solu-Medrol 125 mg IV daily for 3 days. Significant lower extremity edema, will st art Lasix 20 mg p.o. twice daily. 09.13.23: pt was seen and examined. Very thirsty. serum creatinine is worsening today. Vancomycin was stopped yesterday and Solu medrol was started. Mild hypovolemic hyponatremia. Will DC lasix and monitor his renal functions. BP is well controlled. 23: pt was seen and exa mined. Feels better but still thirsty. I stopped his lasix. will start NS at 75 c c for one Leter only. serum creatinine is improving. Received three doses of Solu Medrol a well. BP i s on the higher side, likely secondary to steroids. will monitor for now. mild hypovelmic hyponatremia. also could be secondary to hyperglycemia. 09/15/2022 we will give additional dose of Solu-M edrol 125 mg IV today, laboratory this morning show ed sodium 132, potassium 4.7, CO2 17, chloride 105, BUN 38, creatinine 2.9, glucose 312, hem oglobin 8.2, platelet 341, blood count 8.7, needs better blood sugar control, if creati nine does not start improving the next couple days will plan for kidney biopsy 09/16/2022 laboratory this mo rning showed sodium 135, potassium 4.5, CO2 20, BUN 60, creatinine 2.7, better down from 2.9, hemogl obin 7.6, platelet 360, blood count 9.5, will give prednisone 80 mg p.o. today , blood pressure is elevated, will add hydralazine 25 mg p .o. 3 times daily, scrotal and LE swelling will give Lasix 40 mg IV x 3 09/17/2022 blood pressure sti ll elevated, will increase hydralazine to 50 mg p.o. 3 times daily, will give 80 mg of prednisone today, urine output with Lasix 4125 , laboratory this morning showed sodium 136, pot assium 4.5, CO2 21, BUN 66, creatinine 2.4 down from 2.7, will give 3 more doses of IV Lasix 40 mg every 8 hours 09/18/2022 laboratory this mo rning showed sodium 138, potassium 4.1, CO2 21, BUN 66, creatinine 2.2 continues to improve, urine o utput 2.7 L, hemoglobin 7.6, platelet 341, blood count 10.6, will give Lasix 40 mg IV every 8 for 3 doses, start prednisone 60 mg p.o. daily for 3 days, increase hydralazine to 75 mg p.o. 3 times daily. Consultants: cardiology, endocrinology, hospital ist, infectious disease, podiatry Electronically Signed by Barrera Ramírez MD on at 1005 RPT #:[id number] END OF REPORT 2022-09-17 20:38:00-00:00 [facility]) Podiatry Progress Note REPORT#:[id number] REPORT STATUS: Signed DATE:09/17/22 TIME: 2037 PATIENT: KARMA ROWLAND UNIT #: [id number] ROOM/BED: [place] [address] : 63 AGE: 56 SEX: M ATTEND: Fredy Vences MD ADM AUTHOR: Liam Pedersen DPM * ALL edits or amendments must be made on the [employer] document * Subjective Chief complaint: left heel ulcer. left ankle pain Patient reports: no confusion, no cough, no diarrhea, no fatigue, no fever, no heartburn, no itching, no nausea Objective General VS: Last Documented: Result Date Time Pulse Ox 98 09/17 1836 B/P 178/86 09/17 1836 B/P Mean 116.7 09/17 1836 O2 Delivery Room air 09/17 1836 Temp 36.5 09/17 1836 Pulse 90 09/17 1836 Resp 16 09/17 1836 O2 Flow Rate 2 09/08 1322 PATIENT WEIGHT: Weight (lb): 178 Weight (oz): 7.43 Weight (kg): 80.950 Medications: Active Meds + DC'd Last 24 Hrs Furosemide (LASIX 40 mg/4 mL INJECTION) 40 MG Q8 HR IV Hydralazine HCl (APRESOLINE) 50 MG Q8HR PO Furosemide (LASIX 40 mg/4 mL INJECTION) 40 MG Q8 HR IV (DC) Prednisone (predniSONE) 80 MG ONCE ONE PO (DC) Furosemide (LASIX 40 mg/4 mL INJECTION) 40 MG Q8 HR IV (DC) Hydralazine HCl (APRESOLINE) 25 MG Q8HR PO (DC) Daptomycin (CUBICIN 500MG) 500 MG Q48H IV Sodium Chloride (SODIUM CHLORIDE 0.9%) 50 ML Insulin Human Lispro (HUMALOG) 10 UNIT AC SUBQ Heparin Sodium (HEPARIN 5000 UNITS/ML) 5,000 UNI T Q12HR SUBQ Insulin Glargine (Semglee) 20 UNIT BEDTIME SUBQ Meropenem (MEROPENEM) 500 MG Q8H IV Sterile Water (WATER FOR INJECTION) 10 ML Carvedilol (COREG) 25 MG C BK DIN PO Gabapentin (NEURONTIN) 100 MG Q8HR PO Oxycodone/Acetaminophen (PERCOCET 5/325MG TAB) 2 TAB Q4H PRN PRN PO Folic Acid (FOLIC ACID) 2 MG DAILY PO Multivitamins (TAB-A-MOHAN) 1 TAB DAILY PO Furosemide (LASIX 20MG INJ) 20 MG BLOOD-DOSE BET WEEN IV (CKD) Sodium Chloride (SODIUM CHLORIDE) 10 ML ASDIR IV Pantoprazole Sodium (PROTONIX) 40 MG Q12HR IV Polyethylene Glycol (MIRALAX) 17 GM DAILY PO Sennosides (Senna Lax 8.6 MG TABLET) 8.6 MG MADALYN Y PO Sodium Chloride (SODIUM CHLORIDE) 10 ML ASDIR NV N IV Amitriptyline HCl (ELAVIL) 25 MG BEDTIME PO Zinc Oxide (ZINC OXIDE 30 GM OINTMENT) 1 APPLIC DAILY TOPICAL Sterile Water (WATER FOR IRRIGATION) DRESSING CH GELACIO ASDIR PRN IRR Insulin Human Lispro (HUMALOG) 0 AC HS SUBQ Dextrose/Water (DEXTROSE 10% IN WATER) 125 ML DIR PRN IV (CKD) Dextrose/Water (DEXTROSE 10% IN WATER) 250 ML DIR PRN IV (CKD) Glucagon (GLUCAGON) 1 MG ASDIR PRN IM Lidocaine (LIDODERM) 1 PATCH DAILY TOPICAL Acetaminophen (TYLENOL) 650 MG Q6H PRN PRN PO Bisacodyl (DULCOLAX) 10 MG DAILY PRN PRN RECTAL Docusate Sodium (COLACE) 100 MG Q12H PRN PRN PO Hydralazine HCl (APRESOLINE) 10 MG Q6H PRN PRN I V Ondansetron HCl (ZOFRAN) 4 MG Q6H PRN PRN IV I O: 24 hour I O ending at 0700: 09/17 0700 09/16 1900 Intake Total 60 1485 Output Total 2175 1950 Balance -6793 -094 Intake, Oral 60 1485 Number 1 Bowel Movements Number 0 0 Incontinent Voids Number Voids 0 0 Output, Urine 2174 1949 Patient 80.95 kg Weight Weight Bed scale Measurement Method Dietitian nutrition assessment The data set between the solid lines has been im ported from the dietitian's assessment. BMI Calculated: 28.8 Nutrition related diagnosis: Nutrition diagnosis details: Nutrition problem: Altered nutrition labs Nutrition etiology: DM Nutrition signs and symptoms: HYPER/HYPOGLYCEMIA , A1C >14 Nutrition prescription: CONTINUE DM DIET Dietitian name: You Palmer, DIET Assessment completed: 09/09/22 Physical Exam General appearance: alert, awake, oriented Wound/incision: Location: left foot Site condition: dp/pt 2/4 left. light touch dec reased left foot. ulcer starting at posterior left heel. eccymosis noted . early likely stage 1. left ankle has edema. pain with aggressive ROM left a nkle. dorsal left midfoot is starting to have tissue injury LE vascular pulse assess: 2+ L posterior tibialis, 2+ L dorsalis pedis Considered stroke alert: no Ulcer: Location: DTI dorsal left midfoot Results Findings/Data: Laboratory Tests: 09/17 09/17 09/17 09/17 09/17 1904 1554 1027 0951 0601 Chemistry POC Glucose (70 - 110 MG/DL) 160 H 75 256 H 287 H 286 H 09/17 09/17 09/16 0451 0450 2345 Chemistry Sodium (134 - 147 mEq/L) 136 Potassium (3.4 - 5.0 mEq/L) 4.5 Chloride (100 - 108 mEq/L) 107 Carbon Dioxide (21 - 33 mEq/l) 21 Anion Gap (0 - 20) 12 BUN (7 - 18 mg/dL) 66 H Creatinine (0.6 - 1.3 mg/dL) 2.4 H Glomerular Filtr Rate (90 - 95) 30.5 L Glucose (70 - 110 mg/dL) 285 H POC Glucose (70 - 110 MG/DL) 273 H 291 H Calcium (8.0 - 10.5 mg/dL) 7.4 L Phosphorus (2.5 - 4.9 MG/DL) 4.5 Magnesium (1.80 - 2.40 mg/dL) 1.97 Hematology WBC (4.5 - 11.0 x10 3/uL) 8.9 RBC (4.00 - 5.60 x10 6/uL) 2.83 L Hgb (12.5 - 16.9 g/dL) 8.1 L Hct (37.5 - 50.7 %) 24.9 L MCV (81.0 - 99.0 fL) 88.0 MCH (27.0 - 33.0 pg) 28.6 MCHC (33.0 - 37.0 g/dL) 32.5 L RDW (11.5 - 14.5 %) 14.6 H Plt Count (150 - 400 x10 3/uL) 374 MPV (7.0 - 9.0 fL) 9.6 H Neut % (Auto) (56.0 - 77.0 %) 85.2 H Lymph % (Auto) (14.0 - 32.0 %) 10.2 L Boundary % (Auto) (4.8 - 9.0 %) 2.9 L Eos % (Auto) (0.3 - 3.7 %) 0.0 L Baso % (Auto) (0.0 - 2.0 %) 0.1 Neut # (Auto) (2.0 - 7.6 x10 3/uL) 7.58 Lymph # (Auto) (1.0 - 3.8 x10 3/uL) 0.91 L Boundary # (Auto) (0.1 - 0.8 x10 3/uL) 0.26 Eos # (Auto) (0.0 - 0.2 x10 3/uL) 0.00 Baso # (Auto) (0.0 - 0.2 x10 3/uL) 0.01 Abs Immat Gran (auto) (0.00 - 0.03 x10 3/uL) 0. 14 H Add Manual Diff NO Immature Gran % (0.0 - 2.0 %) 1.6 Nucleated RBC % (0 - 0 %) 0.0 Nucleated RBCs # (Man) (0.0 - 0.1 x10 3/uL) 0.0 0 Diagnosis, Assessment Plan Free Text A P: DM with neuropathy early decub ulcer left heel OA/edema left ankle early ulcer/DTI dorsal left midfoot zinc oxide to foot and heel foam to heel on IV abx on PO gabapentin offloading boot oralia wraps to ankle, only when OOB with therapy. zinc oxide interchange with bactroban ( applied to dorsal left midfoot early ulcer) Consultants: cardiology, endocrinology, hospital ist, infectious disease, podiatry Electronically Signed by Liam Pedersen DPM on 0 09/17/22 at 2038 RPT #:[id number] END OF REPORT 2022-09-17 18:25:00-00:00 [facility]) Endocrinology Progress Note REPORT#:[id number] REPORT STATUS: Signed DATE:09/17/22 TIME: 1824 PATIENT: KARMA ROWLAND UNIT #: [id number] ROOM/BED: [place] [address] : 61 AGE: 56 SEX: M ATTEND: Fredy Vences MD ADM AUTHOR: Braxton Chapin MD * ALL edits or amendments must be made on the [employer] document * Subjective Patient reports: no complaints Objective General VS: Last Documented: Result Date Time Pulse Ox 96 09/17 0955 B/P 184/87 09/17 0955 B/P Mean 119.5 09/17 0955 O2 Delivery Room air 09/17 09 Pulse 87 09/17 0955 Resp 19 09/17 09 Temp 36.4 09/17 0636 O2 Flow Rate 2 09/08 1322 PATIENT WEIGHT: Weight (lb): 178 Weight (oz): 7.43 Weight (kg): 80.950 Medications: Active Meds + DC'd Last 24 Hrs Furosemide (LASIX 40 mg/4 mL INJECTION) 40 MG Q8 HR IV Hydralazine HCl (APRESOLINE) 50 MG Q8HR PO Furosemide (LASIX 40 mg/4 mL INJECTION) 40 MG Q8 HR IV (DC) Prednisone (predniSONE) 80 MG ONCE ONE PO (DC) Furosemide (LASIX 40 mg/4 mL INJECTION) 40 MG Q8 HR IV (DC) Hydralazine HCl (APRESOLINE) 25 MG Q8HR PO (DC) Daptomycin (CUBICIN 500MG) 500 MG Q48H IV Sodium Chloride (SODIUM CHLORIDE 0.9%) 50 ML Insulin Human Lispro (HUMALOG) 10 UNIT AC SUBQ Heparin Sodium (HEPARIN 5000 UNITS/ML) 5,000 UNI T Q12HR SUBQ Insulin Glargine (Semglee) 20 UNIT BEDTIME SUBQ Meropenem (MEROPENEM) 500 MG Q8H IV Sterile Water (WATER FOR INJECTION) 10 ML Carvedilol (COREG) 25 MG C BK DIN PO Gabapentin (NEURONTIN) 100 MG Q8HR PO Oxycodone/Acetaminophen (PERCOCET 5/325MG TAB) 2 TAB Q4H PRN PRN PO Folic Acid (FOLIC ACID) 2 MG DAILY PO Multivitamins (TAB-A-MOHAN) 1 TAB DAILY PO Furosemide (LASIX 20MG INJ) 20 MG BLOOD-DOSE BET WEEN IV (CKD) Sodium Chloride (SODIUM CHLORIDE) 10 ML ASDIR IV Pantoprazole Sodium (PROTONIX) 40 MG Q12HR IV Polyethylene Glycol (MIRALAX) 17 GM DAILY PO Sennosides (Senna Lax 8.6 MG TABLET) 8.6 MG MADALYN Y PO Sodium Chloride (SODIUM CHLORIDE) 10 ML ASDIR NV N IV Amitriptyline HCl (ELAVIL) 25 MG BEDTIME PO Zinc Oxide (ZINC OXIDE 30 GM OINTMENT) 1 APPLIC DAILY TOPICAL Sterile Water (WATER FOR IRRIGATION) DRESSING CH GELACIO ASDIR PRN IRR Insulin Human Lispro (HUMALOG) 0 AC HS SUBQ Dextrose/Water (DEXTROSE 10% IN WATER) 125 ML DIR PRN IV (CKD) Dextrose/Water (DEXTROSE 10% IN WATER) 250 ML DIR PRN IV (CKD) Glucagon (GLUCAGON) 1 MG ASDIR PRN IM Lidocaine (LIDODERM) 1 PATCH DAILY TOPICAL Acetaminophen (TYLENOL) 650 MG Q6H PRN PRN PO Bisacodyl (DULCOLAX) 10 MG DAILY PRN PRN RECTAL Docusate Sodium (COLACE) 100 MG Q12H PRN PRN PO Hydralazine HCl (APRESOLINE) 10 MG Q6H PRN PRN I V Ondansetron HCl (ZOFRAN) 4 MG Q6H PRN PRN IV Physical Exam General appearance: alert, awake Diagnosis, Assessment Plan Hospital course to date: Laboratory Tests: 09/17 09/17 09/17 09/17 09/17 1554 1027 0951 0601 0451 Chemistry POC Glucose (70 - 110 MG/DL) 75 256 H 287 H 286 H 273 H 09/17 09/16 09/16 0450 2345 1931 Chemistry Sodium (134 - 147 mEq/L) 136 Potassium (3.4 - 5.0 mEq/L) 4.5 Chloride (100 - 108 mEq/L) 107 Carbon Dioxide (21 - 33 mEq/l) 21 Anion Gap (0 - 20) 12 BUN (7 - 18 mg/dL) 66 H Creatinine (0.6 - 1.3 mg/dL) 2.4 H Glomerular Filtr Rate (90 - 95) 30.5 L Glucose (70 - 110 mg/dL) 285 H POC Glucose (70 - 110 MG/DL) 291 H 219 H Calcium (8.0 - 10.5 mg/dL) 7.4 L Phosphorus (2.5 - 4.9 MG/DL) 4.5 Magnesium (1.80 - 2.40 mg/dL) 1.97 Hematology WBC (4.5 - 11.0 x10 3/uL) 8.9 RBC (4.00 - 5.60 x10 6/uL) 2.83 L Hgb (12.5 - 16.9 g/dL) 8.1 L Hct (37.5 - 50.7 %) 24.9 L MCV (81.0 - 99.0 fL) 88.0 MCH (27.0 - 33.0 pg) 28.6 MCHC (33.0 - 37.0 g/dL) 32.5 L RDW (11.5 - 14.5 %) 14.6 H Plt Count (150 - 400 x10 3/uL) 374 MPV (7.0 - 9.0 fL) 9.6 H Neut % (Auto) (56.0 - 77.0 %) 85.2 H Lymph % (Auto) (14.0 - 32.0 %) 10.2 L Boundary % (Auto) (4.8 - 9.0 %) 2.9 L Eos % (Auto) (0.3 - 3.7 %) 0.0 L Baso % (Auto) (0.0 - 2.0 %) 0.1 Neut # (Auto) (2.0 - 7.6 x10 3/uL) 7.58 Lymph # (Auto) (1.0 - 3.8 x10 3/uL) 0.91 L Boundary # (Auto) (0.1 - 0.8 x10 3/uL) 0.26 Eos # (Auto) (0.0 - 0.2 x10 3/uL) 0.00 Baso # (Auto) (0.0 - 0.2 x10 3/uL) 0.01 Abs Immat Gran (auto) (0.00 - 0.03 x10 3/uL) 0. 14 H Add Manual Diff NO Immature Gran % (0.0 - 2.0 %) 1.6 Nucleated RBC % (0 - 0 %) 0.0 Nucleated RBCs # (Man) (0.0 - 0.1 x10 3/uL) 0.0 0 Laboratory Tests: 09/16 09/16 09/16 09/16 1549 1441 1110 0553 Chemistry POC Glucose (70 - 110 MG/DL) 62 L 60 L 148 H 19 5 H 09/16 09/15 0455 1937 Chemistry Sodium (134 - 147 mEq/L) 135 Potassium (3.4 - 5.0 mEq/L) 4.5 Chloride (100 - 108 mEq/L) 108 Carbon Dioxide (21 - 33 mEq/l) 20 L Anion Gap (0 - 20) 11 BUN (7 - 18 mg/dL) 60 H Creatinine (0.6 - 1.3 mg/dL) 2.7 H Glomerular Filtr Rate (90 - 95) 26.5 L Glucose (70 - 110 mg/dL) 175 H POC Glucose (70 - 110 MG/DL) 124 H Calcium (8.0 - 10.5 mg/dL) 7.5 L Phosphorus (2.5 - 4.9 MG/DL) 4.6 Magnesium (1.80 - 2.40 mg/dL) 1.93 Hematology WBC (4.5 - 11.0 x10 3/uL) 9.5 RBC (4.00 - 5.60 x10 6/uL) 2.70 L Hgb (12.5 - 16.9 g/dL) 7.6 L Hct (37.5 - 50.7 %) 23.7 L MCV (81.0 - 99.0 fL) 87.8 MCH (27.0 - 33.0 pg) 28.1 MCHC (33.0 - 37.0 g/dL) 32.1 L RDW (11.5 - 14.5 %) 14.6 H Plt Count (150 - 400 x10 3/uL) 360 MPV (7.0 - 9.0 fL) 9.6 H Neut % (Auto) (56.0 - 77.0 %) 73.4 Lymph % (Auto) (14.0 - 32.0 %) 18.6 Bound[place] % (Auto) (4.8 - 9.0 %) 6.7 Eos % (Auto) (0.3 - 3.7 %) 0.2 L Baso % (Auto) (0.0 - 2.0 %) 0.1 Neut # (Auto) (2.0 - 7.6 x10 3/uL) 6.99 Lymph # (Auto) (1.0 - 3.8 x10 3/uL) 1.77 Boundary # (Auto) (0.1 - 0.8 x10 3/uL) 0.64 Eos # (Auto) (0.0 - 0.2 x10 3/uL) 0.02 Baso # (Auto) (0.0 - 0.2 x10 3/uL) 0.01 Abs Immat Gran (auto) (0.00 - 0.03 x10 3/uL) 0. 10 H Add Manual Diff NO Immature Gran % (0.0 - 2.0 %) 1.0 Nucleated RBC % (0 - 0 %) 0.0 Nucleated RBCs # (Man) (0.0 - 0.1 x10 3/uL) 0.0 0 Laboratory Tests: 09/15 09/15 09/15 09/15 1640 [id number] Chemistry POC Glucose (70 - 110 MG/DL) 137 H 126 H 309 H Urines Urine Color (YEL/STRAW) YELLOW Urine Appearance (CLEAR) SL CLOUDY Urine pH (5.0 - 7.0) 5.0 Ur Specific [place] (1.005 - 1.030) 1.013 Urine Protein (NEGATIVE) 2+ H Urine Glucose (UA) (NEGATIVE) 2+ H Urine Ketones (NEGATIVE) NEGATIVE Urine Blood (NEGATIVE) 2+ H Urine Nitrite (NEGATIVE) NEGATIVE Urine Bilirubin (NEGATIVE) NEGATIVE Urine Urobilinogen (0.2 - 1.0 mg/dL) 0.2 Ur Leukocyte Esterase (NEGATIVE) TRACE H Urine RBC (0 - 3 RBC/HPF) 21-50 Urine WBC (0 - 3 WBC/HPF) 4-9 H Ur Squamous Epith Cells (NONE SEEN /HPF) 0-5 Ur Transition Epith Cell (NONE SEEN /HPF) TRACE Urine Bacteria (NONE SEEN /HPF) TRACE Granular Casts (NONE /LPF) 3-5 Urine Mucus (NONE SEEN /LPF) TRACE Ur Random Creatinine (mg/dL) 52.5 U Random Total Protein (mg/dL) 283 09/15 09/14 0515 1931 Chemistry Sodium (134 - 147 mEq/L) 132 L Potassium (3.4 - 5.0 mEq/L) 4.7 Chloride (100 - 108 mEq/L) 105 Carbon Dioxide (21 - 33 mEq/l) 17 L Anion Gap (0 - 20) 15 BUN (7 - 18 mg/dL) 38 H Creatinine (0.6 - 1.3 mg/dL) 2.9 H Glomerular Filtr Rate (90 - 95) 24.3 L Glucose (70 - 110 mg/dL) 312 H POC Glucose (70 - 110 MG/DL) 193 H Calcium (8.0 - 10.5 mg/dL) 7.2 L Phosphorus (2.5 - 4.9 MG/DL) 5.7 H Magnesium (1.80 - 2.40 mg/dL) 1.96 Total Creatine Kinase (46 - 171 Units/L) 26 L Albumin (3.4 - 5.0 g/dL) 1.50 L Prealbumin (16.0 - 40.0 mg/dL) 8.0 L Hematology WBC (4.5 - 11.0 x10 3/uL) 8.7 RBC (4.00 - 5.60 x10 6/uL) 2.88 L Hgb (12.5 - 16.9 g/dL) 8.2 L Hct (37.5 - 50.7 %) 26.5 L MCV (81.0 - 99.0 fL) 92.0 MCH (27.0 - 33.0 pg) 28.5 MCHC (33.0 - 37.0 g/dL) 30.9 L RDW (11.5 - 14.5 %) 14.3 Plt Count (150 - 400 x10 3/uL) 341 MPV (7.0 - 9.0 fL) 9.1 H Neut % (Auto) (56.0 - 77.0 %) 84.9 H Lymph % (Auto) (14.0 - 32.0 %) 11.3 L Boundary % (Auto) (4.8 - 9.0 %) 3.2 L Eos % (Auto) (0.3 - 3.7 %) 0.0 L Baso % (Auto) (0.0 - 2.0 %) 0.1 Neut # (Auto) (2.0 - 7.6 x10 3/uL) 7.35 Lymph # (Auto) (1.0 - 3.8 x10 3/uL) 0.98 L Bound[place] # (Auto) (0.1 - 0.8 x10 3/uL) 0.28 Eos # (Auto) (0.0 - 0.2 x10 3/uL) 0.00 Baso # (Auto) (0.0 - 0.2 x10 3/uL) 0.01 Abs Immat Gran (auto) (0.00 - 0.03 x10 3/uL) 0. 04 H Add Manual Diff NO Immature Gran % (0.0 - 2.0 %) 0.5 Nucleated RBC % (0 - 0 %) 0.0 Nucleated RBCs # (Man) (0.0 - 0.1 x10 3/uL) 0.0 0 Microbiology: Date/Time Procedure - Status Source Growth 09/15 514 MRSA DNA Surveillance Screen - COMP NASAL Laboratory Tests: 09/14 09/14 09/14 09/14 09/13 1130 6043 4069 7421 3556 Chemistry Sodium (134 - 147 mEq/L) 132 L Potassium (3.4 - 5.0 mEq/L) 4.4 Chloride (100 - 108 mEq/L) 104 Carbon Dioxide (21 - 33 mEq/l) 19 L Anion Gap (0 - 20) 14 BUN (7 - 18 mg/dL) 38 H Creatinine (0.6 - 1.3 mg/dL) 2.8 H Glomerular Filtr Rate (90 - 95) 25.4 L Glucose (70 - 110 mg/dL) 325 H POC Glucose (70 - 110 MG/DL) 137 H 290 H 334 H 248 H Calcium (8.0 - 10.5 mg/dL) 7.5 L Hematology WBC (4.5 - 11.0 x10 3/uL) 9.5 RBC (4.00 - 5.60 x10 6/uL) 2.83 L Hgb (12.5 - 16.9 g/dL) 8.0 L Hct (37.5 - 50.7 %) 25.3 L MCV (81.0 - 99.0 fL) 89.4 MCH (27.0 - 33.0 pg) 28.3 MCHC (33.0 - 37.0 g/dL) 31.6 L RDW (11.5 - 14.5 %) 14.0 Plt Count (150 - 400 x10 3/uL) 322 MPV (7.0 - 9.0 fL) 9.3 H Neut % (Auto) (56.0 - 77.0 %) 80.2 H Lymph % (Auto) (14.0 - 32.0 %) 13.9 L Boundary % (Auto) (4.8 - 9.0 %) 5.1 Eos % (Auto) (0.3 - 3.7 %) 0.0 L Baso % (Auto) (0.0 - 2.0 %) 0.1 Neut # (Auto) (2.0 - 7.6 x10 3/uL) 7.58 Lymph # (Auto) (1.0 - 3.8 x10 3/uL) 1.31 Boundary # (Auto) (0.1 - 0.8 x10 3/uL) 0.48 Eos # (Auto) (0.0 - 0.2 x10 3/uL) 0.00 Baso # (Auto) (0.0 - 0.2 x10 3/uL) 0.01 Abs Immat Gran (auto) (0.00 - 0.03 0.07 H x10 3/uL) Add Manual Diff NO Immature Gran % (0.0 - 2.0 %) 0.7 Nucleated RBC % (0 - 0 %) 0.0 Nucleated RBCs # (Man) (0.0 - 0.1 0.00 x10 3/uL) 09/13 1629 Chemistry POC Glucose (70 - 110 MG/DL) 130 H Laboratory Tests: 09/13 09/13 09/13 09/12 1105 0543 0455 2016 Chemistry Sodium (134 - 147 mEq/L) 133 L Potassium (3.4 - 5.0 mEq/L) 4.6 Chloride (100 - 108 mEq/L) 107 Carbon Dioxide (21 - 33 mEq/l) 19 L Anion Gap (0 - 20) 12 BUN (7 - 18 mg/dL) 28 H Creatinine (0.6 - 1.3 mg/dL) 2.7 H Glomerular Filtr Rate (90 - 95) 26.5 L Glucose (70 - 110 mg/dL) 241 H POC Glucose (70 - 110 MG/DL) 307 H 258 H 223 H Calcium (8.0 - 10.5 mg/dL) 7.8 L Phosphorus (2.5 - 4.9 MG/DL) 4.7 Magnesium (1.80 - 2.40 mg/dL) 1.92 Hematology WBC (4.5 - 11.0 x10 3/uL) 9.8 RBC (4.00 - 5.60 x10 6/uL) 2.90 L Hgb (12.5 - 16.9 g/dL) 8.2 L Hct (37.5 - 50.7 %) 25.4 L MCV (81.0 - 99.0 fL) 87.6 MCH (27.0 - 33.0 pg) 28.3 MCHC (33.0 - 37.0 g/dL) 32.3 L RDW (11.5 - 14.5 %) 13.7 Plt Count (150 - 400 x10 3/uL) 288 MPV (7.0 - 9.0 fL) 10.0 H Neut % (Auto) (56.0 - 77.0 %) 85.3 H Lymph % (Auto) (14.0 - 32.0 %) 10.4 L Boundary % (Auto) (4.8 - 9.0 %) 3.5 L Eos % (Auto) (0.3 - 3.7 %) 0.0 L Baso % (Auto) (0.0 - 2.0 %) 0.1 Neut # (Auto) (2.0 - 7.6 x10 3/uL) 8.34 H Lymph # (Auto) (1.0 - 3.8 x10 3/uL) 1.02 Boundary # (Auto) (0.1 - 0.8 x10 3/uL) 0.34 Eos # (Auto) (0.0 - 0.2 x10 3/uL) 0.00 Baso # (Auto) (0.0 - 0.2 x10 3/uL) 0.01 Abs Immat Gran (auto) (0.00 - 0.03 x10 3/uL) 0. 07 H Add Manual Diff NO Immature Gran % (0.0 - 2.0 %) 0.7 Nucleated RBC % (0 - 0 %) 0.0 Nucleated RBCs # (Man) (0.0 - 0.1 x10 3/uL) 0.0 0 Microbiology: Date/Time Procedure - Status Source Growth 09/13 0455 MRSA DNA Surveillance Screen - RECD NASAL Laboratory Tests: 09/12 09/12 09/12 09/12 1606 1115 1105 0604 Chemistry POC Glucose (70 - 110 MG/DL) 150 H 68 L 170 H B-Natriuretic Peptide (0 - 100 PG/ML) 297.0 H Hematology Eos Smear Total Cells NONE SEEN 09/12 09/11 09/11 0420 2130 1933 Chemistry Sodium (134 - 147 mEq/L) 134 Potassium (3.4 - 5.0 mEq/L) 4.2 Chloride (100 - 108 mEq/L) 106 Carbon Dioxide (21 - 33 mEq/l) 20 L Anion Gap (0 - 20) 12 BUN (7 - 18 mg/dL) 31 H Creatinine (0.6 - 1.3 mg/dL) 2.4 H Glomerular Filtr Rate (90 - 95) 30.5 L Glucose (70 - 110 mg/dL) 167 H POC Glucose (70 - 110 MG/DL) 150 H Calcium (8.0 - 10.5 mg/dL) 8.2 Phosphorus (2.5 - 4.9 MG/DL) 4.4 Magnesium (1.80 - 2.40 mg/dL) 1.86 Hematology WBC (4.5 - 11.0 x10 3/uL) 8.8 RBC (4.00 - 5.60 x10 6/uL) 2.73 L Hgb (12.5 - 16.9 g/dL) 7.7 L Hct (37.5 - 50.7 %) 23.7 L MCV (81.0 - 99.0 fL) 86.8 MCH (27.0 - 33.0 pg) 28.2 MCHC (33.0 - 37.0 g/dL) 32.5 L RDW (11.5 - 14.5 %) 13.8 Plt Count (150 - 400 x10 3/uL) 248 MPV (7.0 - 9.0 fL) 9.7 H Neut % (Auto) (56.0 - 77.0 %) 72.3 Lymph % (Auto) (14.0 - 32.0 %) 15.0 Boundary % (Auto) (4.8 - 9.0 %) 7.9 Eos % (Auto) (0.3 - 3.7 %) 3.8 H Baso % (Auto) (0.0 - 2.0 %) 0.3 Neut # (Auto) (2.0 - 7.6 x10 3/uL) 6.34 Lymph # (Auto) (1.0 - 3.8 x10 3/uL) 1.31 Boundary # (Auto) (0.1 - 0.8 x10 3/uL) 0.69 Eos # (Auto) (0.0 - 0.2 x10 3/uL) 0.33 H Baso # (Auto) (0.0 - 0.2 x10 3/uL) 0.03 Abs Immat Gran (auto) (0.00 - 0.03 x10 3/uL) 0. 06 H Add Manual Diff NO Immature Gran % (0.0 - 2.0 %) 0.7 Nucleated RBC % (0 - 0 %) 0.0 Nucleated RBCs # (Man) (0.0 - 0.1 x10 3/uL) 0.0 0 Toxicology Random Vancomycin (mcg/mL) 16.7 Laboratory Tests: 09/11 09/11 09/11 09/11 09/11 1532 1445 1114 0541 0445 Chemistry Sodium (134 - 147 mEq/L) 134 Potassium (3.4 - 5.0 mEq/L) 4.3 Chloride (100 - 108 mEq/L) 105 Carbon Dioxide (21 - 33 mEq/l) 22 Anion Gap (0 - 20) 12 BUN (7 - 18 mg/dL) 26 H Creatinine (0.6 - 1.3 mg/dL) 2.0 H Glomerular Filtr Rate (90 - 95) 38.0 L Glucose (70 - 110 mg/dL) 109 POC Glucose (70 - 110 MG/DL) 93 109 127 H Calcium (8.0 - 10.5 mg/dL) 8.3 Phosphorus (2.5 - 4.9 MG/DL) 4.7 Magnesium (1.80 - 2.40 mg/dL) 1.90 Hematology WBC (4.5 - 11.0 x10 3/uL) 7.9 RBC (4.00 - 5.60 x10 6/uL) 2.94 L Hgb (12.5 - 16.9 g/dL) 8.3 L Hct (37.5 - 50.7 %) 25.8 L MCV (81.0 - 99.0 fL) 87.8 MCH (27.0 - 33.0 pg) 28.2 MCHC (33.0 - 37.0 g/dL) 32.2 L RDW (11.5 - 14.5 %) 13.7 Plt Count (150 - 400 x10 3/uL) 269 MPV (7.0 - 9.0 fL) 9.8 H Neut % (Auto) (56.0 - 77.0 %) 67.9 Lymph % (Auto) (14.0 - 32.0 %) 16.1 Boundary % (Auto) (4.8 - 9.0 %) 9.1 H Eos % (Auto) (0.3 - 3.7 %) 5.6 H Baso % (Auto) (0.0 - 2.0 %) 0.5 Neut # (Auto) (2.0 - 7.6 x10 3/uL) 5.35 Lymph # (Auto) (1.0 - 3.8 x10 3/uL) 1.27 Boundary # (Auto) (0.1 - 0.8 x10 3/uL) 0.72 Eos # (Auto) (0.0 - 0.2 x10 3/uL) 0.44 H Baso # (Auto) (0.0 - 0.2 x10 3/uL) 0.04 Abs Immat Gran (auto) (0.00 - 0.03 0.06 H x10 3/uL) Add Manual Diff NO Immature Gran % (0.0 - 2.0 %) 0.8 Nucleated RBC % (0 - 0 %) 0.0 Nucleated RBCs # (Man) (0.0 - 0.1 0.00 x10 3/uL) Toxicology Random Vancomycin (mcg/mL) 18.3 09/10 1851 Chemistry POC Glucose (70 - 110 MG/DL) 97 Laboratory Tests: 09/10 09/10 09/10 09/10 09/10 1715 1625 1430 1007 0545 Chemistry Sodium (134 - 147 mEq/L) 135 Potassium (3.4 - 5.0 mEq/L) 4.2 Chloride (100 - 108 mEq/L) 107 Carbon Dioxide (21 - 33 mEq/l) 21 Anion Gap (0 - 20) 11 BUN (7 - 18 mg/dL) 25 H Creatinine (0.6 - 1.3 mg/dL) 1.9 H Glomerular Filtr Rate (90 - 95) 40.4 L Glucose (70 - 110 mg/dL) 156 H POC Glucose (70 - 110 MG/DL) 75 58 L 213 H Calcium (8.0 - 10.5 mg/dL) 8.3 Phosphorus (2.5 - 4.9 MG/DL) 4.6 Magnesium (1.80 - 2.40 mg/dL) 1.89 Hematology WBC (4.5 - 11.0 x10 3/uL) 8.6 RBC (4.00 - 5.60 x10 6/uL) 3.08 L Hgb (12.5 - 16.9 g/dL) 8.6 L Hct (37.5 - 50.7 %) 26.7 L MCV (81.0 - 99.0 fL) 86.7 MCH (27.0 - 33.0 pg) 27.9 MCHC (33.0 - 37.0 g/dL) 32.2 L RDW (11.5 - 14.5 %) 13.8 Plt Count (150 - 400 x10 3/uL) 265 MPV (7.0 - 9.0 fL) 9.6 H Neut % (Auto) (56.0 - 77.0 %) 69.4 Lymph % (Auto) (14.0 - 32.0 %) 15.5 Boundary % (Auto) (4.8 - 9.0 %) 8.5 Eos % (Auto) (0.3 - 3.7 %) 5.5 H Baso % (Auto) (0.0 - 2.0 %) 0.4 Neut # (Auto) (2.0 - 7.6 x10 3/uL) 5.94 Lymph # (Auto) (1.0 - 3.8 x10 3/uL) 1.33 Boundary # (Auto) (0.1 - 0.8 x10 3/uL) 0.73 Eos # (Auto) (0.0 - 0.2 x10 3/uL) 0.47 H Baso # (Auto) (0.0 - 0.2 x10 3/uL) 0.03 Abs Immat Gran (auto) (0.00 - 0.03 0.06 H x10 3/uL) Add Manual Diff NO Immature Gran % (0.0 - 2.0 %) 0.7 Nucleated RBC % (0 - 0 %) 0.0 Nucleated RBCs # (Man) (0.0 - 0.1 0.00 x10 3/uL) Toxicology Random Vancomycin (mcg/mL) 15.7 09/10 09/09 0541 1911 Chemistry POC Glucose (70 - 110 MG/DL) 154 H 102 Recent Impressions: ULTRASOUND - US RETROPERITONEAL COM 09/10 1311 Report Impression - Status: SIGNED Entered: 09/10/2022 1503 IMPRESSION: No acute findings. Impression By: Yared - Hakeem Perez Laboratory Tests: 09/09 09/09 09/09 09/09 09/09 1606 1526 1403 1049 0524 Chemistry POC Glucose (70 - 110 MG/DL) 109 30 L 90 128 H Toxicology Random Vancomycin (mcg/mL) 15.4 09/09 09/08 09/08 0500 1955 1828 Chemistry Sodium (134 - 147 mEq/L) 136 Potassium (3.4 - 5.0 mEq/L) 4.2 Chloride (100 - 108 mEq/L) 107 Carbon Dioxide (21 - 33 mEq/l) 22 Anion Gap (0 - 20) 11 BUN (7 - 18 mg/dL) 23 H Creatinine (0.6 - 1.3 mg/dL) 1.5 H Glomerular Filtr Rate (90 - 95) 53.6 L Glucose (70 - 110 mg/dL) 125 H POC Glucose (70 - 110 MG/DL) 106 Calcium (8.0 - 10.5 mg/dL) 8.2 Phosphorus (2.5 - 4.9 MG/DL) 4.0 Magnesium (1.80 - 2.40 mg/dL) 1.89 Iron (35 - 150 mcg/dL) 10 L TIBC (260 - 445 mcg/dL) 138 L % Saturation (14 - 34 %) 7.2 L Unsat Iron Binding (mcg/dL) 128 Ferritin (23.9 - 336.2 ng/mL) 700.5 H Lactate Dehydrogenase (87 - 241 IUnits/L) 193 Hematology WBC (4.5 - 11.0 x10 3/uL) 9.2 RBC (4.00 - 5.60 x10 6/uL) 3.01 L Hgb (12.5 - 16.9 g/dL) 8.5 L Hct (37.5 - 50.7 %) 25.9 L MCV (81.0 - 99.0 fL) 86.0 MCH (27.0 - 33.0 pg) 28.2 MCHC (33.0 - 37.0 g/dL) 32.8 L RDW (11.5 - 14.5 %) 13.8 Plt Count (150 - 400 x10 3/uL) 263 MPV (7.0 - 9.0 fL) 9.7 H Neut % (Auto) (56.0 - 77.0 %) 69.1 Lymph % (Auto) (14.0 - 32.0 %) 16.1 Boundary % (Auto) (4.8 - 9.0 %) 9.2 H Eos % (Auto) (0.3 - 3.7 %) 4.7 H Baso % (Auto) (0.0 - 2.0 %) 0.4 Neut # (Auto) (2.0 - 7.6 x10 3/uL) 6.38 Lymph # (Auto) (1.0 - 3.8 x10 3/uL) 1.49 Boundary # (Auto) (0.1 - 0.8 x10 3/uL) 0.85 H Eos # (Auto) (0.0 - 0.2 x10 3/uL) 0.43 H Baso # (Auto) (0.0 - 0.2 x10 3/uL) 0.04 Abs Immat Gran (auto) (0.00 - 0.03 x10 3/uL) 0 .05 H Add Manual Diff NO Immature Gran % (0.0 - 2.0 %) 0.5 Nucleated RBC % (0 - 0 %) 0.0 Nucleated RBCs # (Man) (0.0 - 0.1 x10 3/uL) 0.0 0 Retic Count (auto) (0.3 - 2.3 %) 1.3 Laboratory Tests: 09/08 09/08 09/08 09/08 09/08 1611 1318 1045 1033 0616 Chemistry POC Glucose (70 - 110 MG/DL) 120 H 101 99 101 Toxicology Random Vancomycin (mcg/mL) 15.8 09/08 09/07 09/07 0615 2238 2110 Chemistry Sodium (134 - 147 mEq/L) 135 Potassium (3.4 - 5.0 mEq/L) 4.6 Chloride (100 - 108 mEq/L) 107 Carbon Dioxide (21 - 33 mEq/l) 22 Anion Gap (0 - 20) 10 BUN (7 - 18 mg/dL) 22 H Creatinine (0.6 - 1.3 mg/dL) 1.4 H Glomerular Filtr Rate (90 - 95) 58.3 L Glucose (70 - 110 mg/dL) 100 POC Glucose (70 - 110 MG/DL) 135 H 127 H Calcium (8.0 - 10.5 mg/dL) 8.1 Magnesium (1.80 - 2.40 mg/dL) 1.58 L Total Creatine Kinase (46 - 171 Units/L) 22 L Albumin (3.4 - 5.0 g/dL) 1.30 L Prealbumin (16.0 - 40.0 mg/dL) < 5.0 L Hematology WBC (4.5 - 11.0 x10 3/uL) 9.1 RBC (4.00 - 5.60 x10 6/uL) 3.05 L Hgb (12.5 - 16.9 g/dL) 8.5 L Hct (37.5 - 50.7 %) 26.2 L MCV (81.0 - 99.0 fL) 85.9 MCH (27.0 - 33.0 pg) 27.9 MCHC (33.0 - 37.0 g/dL) 32.4 L RDW (11.5 - 14.5 %) 13.5 Plt Count (150 - 400 x10 3/uL) 231 MPV (7.0 - 9.0 fL) 9.6 H Neut % (Auto) (56.0 - 77.0 %) 73.3 Lymph % (Auto) (14.0 - 32.0 %) 13.7 L Boundary % (Auto) (4.8 - 9.0 %) 7.2 Eos % (Auto) (0.3 - 3.7 %) 4.8 H Baso % (Auto) (0.0 - 2.0 %) 0.3 Neut # (Auto) (2.0 - 7.6 x10 3/uL) 6.64 Lymph # (Auto) (1.0 - 3.8 x10 3/uL) 1.24 Boundary # (Auto) (0.1 - 0.8 x10 3/uL) 0.65 Eos # (Auto) (0.0 - 0.2 x10 3/uL) 0.43 H Baso # (Auto) (0.0 - 0.2 x10 3/uL) 0.03 Abs Immat Gran (auto) (0.00 - 0.03 x10 3/uL) 0. 06 H Add Manual Diff NO Immature Gran % (0.0 - 2.0 %) 0.7 Nucleated RBC % (0 - 0 %) 0.0 Nucleated RBCs # (Man) (0.0 - 0.1 x10 3/uL) 0.0 0 Laboratory Tests: 09/07 09/07 09/07 09/07 09/07 1554 1137 1127 0618 0510 Chemistry Creatinine (0.6 - 1.3 mg/dL) 1.4 H POC Glucose (70 - 110 MG/DL) 112 H 51 L 42 L 13 5 H Hematology Hgb (12.5 - 16.9 g/dL) 8.4 L Hct (37.5 - 50.7 %) 26.2 L Toxicology Random Vancomycin (mcg/mL) 14.7 09/06 09/06 2226 2108 Chemistry POC Glucose (70 - 110 MG/DL) 192 H 211 H Laboratory Tests: 09/06 09/06 09/06 09/06 09/06 1553 1547 1051 0538 0536 Chemistry Creatinine (0.6 - 1.3 mg/dL) 1.4 H POC Glucose (70 - 110 MG/DL) 119 H 92 124 H Hematology Hgb (12.5 - 16.9 g/dL) 8.6 L Hct (37.5 - 50.7 %) 26.1 L Toxicology Vancomycin Trough (10.0 - 20.0 mcg/mL) 18.9 09/05 1910 Chemistry POC Glucose (70 - 110 MG/DL) 117 H Laboratory Tests: 09/05 09/05 09/04 09/04 09/04 1149 0615 2042 1630 1557 Chemistry Sodium (134 - 147 mEq/L) 134 Potassium (3.4 - 5.0 mEq/L) 5.0 Chloride (100 - 108 mEq/L) 109 H Carbon Dioxide (21 - 33 mEq/l) 21 Anion Gap (0 - 20) 9 BUN (7 - 18 mg/dL) 24 H Creatinine (0.6 - 1.3 mg/dL) 1.3 Glomerular Filtr Rate (90 - 95) 63.7 L Glucose (70 - 110 mg/dL) 75 POC Glucose (70 - 110 MG/DL) 74 103 128 H Calcium (8.0 - 10.5 mg/dL) 7.9 L Hematology Hgb (12.5 - 16.9 g/dL) 7.1 L Hct (37.5 - 50.7 %) 22.7 L Toxicology Vancomycin Trough (10.0 - 20.0 mcg/mL) 12.8 Microbiology: Date/Time Procedure - Status Source Growth 09/04 1739 Occult Blood - COMP STOOL Recent Impressions: RADIOLOGY - XR ABDOMEN 1V (KUB) 09/04 1648 Report Impression - Status: SIGNED Entered: 09/04/2022 1757 IMPRESSION: Benign appearance of the abdomen. Impression By: [email or web address] - Hakeem Soto ULTRASOUND - [facility] VEIN UNI/LTD 09/05 1146 Report Impression - Status: SIGNED Entered: 09/05/2022 1333 IMPRESSION: 1. No evidence of deep vein thrombosis. 2. Complex heterogeneous hypoechoic fluid collec tion in the left calf region measuring 8.4 x 2.8 x 2.5 cm; there is no internal vascularity or peripheral hyperemia. May represe nt a hematoma. Impression By: [email or web address] - Mert Ga M.D. RADIOLOGY - XR CHEST 1 V 09/05 1432 Report Impression - Status: SIGNED Entered: 09/05/2022 1515 IMPRESSION: Minimal bibasilar pulmonary opacities Impression By: Hakeem Jacobo Laboratory Tests: 09/04 09/04 09/04 09/04 09/04 1630 1557 1100 1031 0816 Chemistry POC Glucose (70 - 110 MG/DL) 128 H 107 99 Hematology Hgb (12.5 - 16.9 g/dL) 7.7 L Hct (37.5 - 50.7 %) 23.7 L Toxicology Vancomycin Trough (10.0 - 20.0 mcg/mL) 12.8 09/04 09/04 09/03 09/03 0721 0540 1944 1836 Chemistry POC Glucose (70 - 110 MG/DL) 87 124 H Hematology Hgb (12.5 - 16.9 g/dL) 6.8 L Hct (37.5 - 50.7 %) 21.2 L Toxicology Vancomycin Peak (30 - 40 MCG/ML) 27.4 L Microbiology: Date/Time Procedure - Status Source Growth 09/04 1037 Occult Blood - COLB STOOL 1.Diabetes mellitus type 2 uncontrolled complica tions. 2. 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 4. Sepsis 5. Prostate abscess. 6. Anemia Blood sugar 285-256 mg/dL.H/H 8.11/17. Adjust insulin dose. PT and OT. Electronically Signed by Braxton Chapin MD on at 1826 RPT #:[id number] END OF REPORT 2022-09-17 15:00:00-00:00 [facility] Progress Note REPORT#:[id number] REPORT STATUS: Signed DATE:09/17/22 TIME: 1500 PATIENT: KARMA ROWLAND UNIT #: [id number] ROOM/BED: [place] [address] : 63 AGE: 56 SEX: M ATTEND: Fredy Vences MD ADM AUTHOR: Kassie Avitia MD * ALL edits or amendments must be made on the el ectronic/computer document * Subjective HPI: Patient is a 56-year-old male with history of di abetes mellitus type 2 and hypertension who was initially admitted for alte red mental status and right- sided foot infection. 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 The p atient is anemic with current Hgb 7.1. He has received a total of 3 un its pRBCs during this hospitalization. KUB on 09/04 was negative for acute GI process. T he patient denies overt GIB, dark tarry stools, nausea, a bdominal pain, or vomiting. He has never had EGD or colonoscopy. 09/06: No complaints today. Hemoglobin stable. No overt GI bleed. Plan for colonoscopy and endoscopy on Thursday 09/07: No complaints today. No overt GI bleed. Pl anning for colonoscopy and endoscopy tomorrow 09/08: EGD mild gastritis. colonoscopy rectal eugenia yp s/p snare. No other abnormalities 09/09: doing well. Seen at the gym. No bleeding. 09/10: Doing well. No bleeding. tolerating diet. Movig bowels 09/11: doing well. States his leg swelling is bet ter. Tolerating diet. having normal BM 09/12: dooing well. doing work-out at the gym. To lerating diet. Normal BMs. Stable H/H 09/14-Sitting up in wheelchair, family at bedside . Denies n/v/abd pain/GIB 09/15: Doing well. H/H stable. No melena or BRBPR . No nausea or vomiting. Appetite is well 09/16: doing well. no complaints. eating well 09/17: stable H/H. No complaints. Objective Physical Exam HEENT: atraumatic, normocephalic Neck: full range of motion, non-tender Respiratory: symmetric expansion, no distress Abdomen: non-tender, normal bowel sounds, soft, no distention, no guarding Extremities: right BKA Considered stroke alert: no Skin: dry Diagnosis, Assessment Plan Free Text A P: 1. Positive FOBT-and anemia: The patient denies overt GIB, dark tarry stools, nausea, abdominal pain, or vomiting. He is not o n anticoagulation therapy. -Continue PPI. The patient has never had EGD or colonoscopy prior to this admission s/p EGD and colonoscopy. EGD showed mild gastrit is. Colonoscopy showed rectal polyp that was resected by snare. no evidence of bleeding. Pathology of polyp came back as tubular adenoma. recommend repeatin g colonoscopy in 5 years Anemia likely secondary to chronic kidney diseas e. Can consider video capsule endoscopy as outpt if evidence of dropping H/H H/H remains stable Consider checking blood work Q3 days since H/H i s stable Will follow along Consultants: cardiology, endocrinology, hospital ist, infectious disease, podiatry at 1500 RPT #:[id number] END OF REPORT 2022-09-17 13:09:00-00:[address] [facility] ([facility]) Pain Management Progress Note REPORT#:[id number] REPORT STATUS: Signed DATE:09/17/22 TIME: 1309 PATIENT: KARMA ROWLAND UNIT #: [id number] ROOM/BED: [place] [address] : 63 AGE: 56 SEX: M ATTEND: Fredy Vences MD ADM AUTHOR: Ben Klein * ALL edits or amendments must be made on the [employer]/computer document * Ben Klein 09/17/22 1309: Subjective Chief complaint: Patient seen and examined. Chart/MAR reviewed. Patient resting comfortably. No acute concerns. Pain control is good today. Patient being seen for Acute postoperative pain, right foot and ankle gangrene, requiring BKA, Constipation Patient is still requiring medications to help w ith managing current problems. Patient is requiring IV narcotics to help manage breakthrough pain No fever/chills, chest pain, orthopnea, nausea/v omiting, pruritus, or hallucinations. 14 point ROS undertaken unremarkable except as n oted Objective General VS/I O: Vital Signs Date Temp Pulse Resp B/P B/P Mean Pulse Ox FiO2 09/16-09/17 36.4 77-92 16-19 155-184/76-87 103. 8-119.5 92-97 Last Documented: Result Date Time Pulse Ox 96 09/17 954 B/P 184/87 09/17 954 B/P Mean 119.5 09/17 954 O2 Delivery Room air 09/17 954 Pulse 87 09/17 954 Resp 19 09/17 954 Temp 36.4 09/17 0636 O2 Flow Rate 2 09/08 1322 24 hour I O ending at 0700: 09/17 0700 09/16 1900 Intake Total 60 1485 Output Total 2175 1950 Balance -2114 -465 Intake, Oral 60 1485 Number 1 Bowel Movements Number 0 0 Incontinent Voids Number Voids 0 0 Output, Urine [id number] Patient 80.95 kg Weight Weight Bed scale Measurement Method PATIENT WEIGHT: Weight (lb): 178 Weight (oz): 7.43 Weight (kg): 80.950 Medications: Active Meds + DC'd Last 24 Hrs Furosemide (LASIX 40 mg/4 mL INJECTION) 40 MG Q8 HR IV Hydralazine HCl (APRESOLINE) 50 MG Q8HR PO Furosemide (LASIX 40 mg/4 mL INJECTION) 40 MG Q8 HR IV (DC) Prednisone (predniSONE) 80 MG ONCE ONE PO (DC) Furosemide (LASIX 40 mg/4 mL INJECTION) 40 MG Q8 HR IV (DC) Hydralazine HCl (APRESOLINE) 25 MG Q8HR PO (DC) Daptomycin (CUBICIN 500MG) 500 MG Q48H IV Sodium Chloride (SODIUM CHLORIDE 0.9%) 50 ML Insulin Human Lispro (HUMALOG) 10 UNIT AC SUBQ Heparin Sodium (HEPARIN 5000 UNITS/ML) 5,000 UNI T Q12HR SUBQ Insulin Glargine (Semglee) 20 UNIT BEDTIME SUBQ Meropenem (MEROPENEM) 500 MG Q8H IV Sterile Water (WATER FOR INJECTION) 10 ML Carvedilol (COREG) 25 MG C BK DIN PO Gabapentin (NEURONTIN) 100 MG Q8HR PO Oxycodone/Acetaminophen (PERCOCET 5/325MG TAB) 2 TAB Q4H PRN PRN PO Folic Acid (FOLIC ACID) 2 MG DAILY PO Multivitamins (TAB-A-MOHAN) 1 TAB DAILY PO Furosemide (LASIX 20MG INJ) 20 MG BLOOD-DOSE BET WEEN IV (CKD) Sodium Chloride (SODIUM CHLORIDE) 10 ML ASDIR IV Pantoprazole Sodium (PROTONIX) 40 MG Q12HR IV Polyethylene Glycol (MIRALAX) 17 GM DAILY PO Sennosides (Senna Lax 8.6 MG TABLET) 8.6 MG MADALYN Y PO Sodium Chloride (SODIUM CHLORIDE) 10 ML ASDIR NV N IV Amitriptyline HCl (ELAVIL) 25 MG BEDTIME PO Zinc Oxide (ZINC OXIDE 30 GM OINTMENT) 1 APPLIC DAILY TOPICAL Sterile Water (WATER FOR IRRIGATION) DRESSING CH GELACIO ASDIR PRN IRR Insulin Human Lispro (HUMALOG) 0 AC HS SUBQ Dextrose/Water (DEXTROSE 10% IN WATER) 125 ML DIR PRN IV (CKD) Dextrose/Water (DEXTROSE 10% IN WATER) 250 ML DIR PRN IV (CKD) Glucagon (GLUCAGON) 1 MG ASDIR PRN IM Lidocaine (LIDODERM) 1 PATCH DAILY TOPICAL Acetaminophen (TYLENOL) 650 MG Q6H PRN PRN PO Bisacodyl (DULCOLAX) 10 MG DAILY PRN PRN RECTAL Docusate Sodium (COLACE) 100 MG Q12H PRN PRN PO Hydralazine HCl (APRESOLINE) 10 MG Q6H PRN PRN I V Ondansetron HCl (ZOFRAN) 4 MG Q6H PRN PRN IV Physical Exam General appearance: alert, awake, oriented, no a cute distress Head/eyes: atraumatic, EOMI, normocephalic, norm al conjunctiva/sclera, PERRLA ENT: normal ear left, normal ear right, normal n ose, normal pharynx, moist mucosal membranes Neck: full range of motion, no lymphadenopathy, supple/no meningismus Cardiovascular: regular rate rhythm Respiratory: clear to auscultation, no distress, aerating well Abdomen: soft, non-tender, no distention , active bowel sounds in all quarants. 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, no sensory deficit s, CNII-XII grossly intact Considered stroke alert: no Skin: dry, normal turgor, no rash, warm Results Findings/data: Laboratory Tests: 09/17 09/17 09/17 09/17 09/17 1027 [id number] 0450 Chemistry Sodium (134 - 147 mEq/L) 136 Potassium (3.4 - 5.0 mEq/L) 4.5 Chloride (100 - 108 mEq/L) 107 Carbon Dioxide (21 - 33 mEq/l) 21 Anion Gap (0 - 20) 12 BUN (7 - 18 mg/dL) 66 H Creatinine (0.6 - 1.3 mg/dL) 2.4 H Glomerular Filtr Rate (90 - 95) 30.5 L Glucose (70 - 110 mg/dL) 285 H POC Glucose (70 - 110 MG/DL) 256 H 287 H 286 H 273 H Calcium (8.0 - 10.5 mg/dL) 7.4 L Phosphorus (2.5 - 4.9 MG/DL) 4.5 Magnesium (1.80 - 2.40 mg/dL) 1.97 Hematology WBC (4.5 - 11.0 x10 3/uL) 8.9 RBC (4.00 - 5.60 x10 6/uL) 2.83 L Hgb (12.5 - 16.9 g/dL) 8.1 L Hct (37.5 - 50.7 %) 24.9 L MCV (81.0 - 99.0 fL) 88.0 MCH (27.0 - 33.0 pg) 28.6 MCHC (33.0 - 37.0 g/dL) 32.5 L RDW (11.5 - 14.5 %) 14.6 H Plt Count (150 - 400 x10 3/uL) 374 MPV (7.0 - 9.0 fL) 9.6 H Neut % (Auto) (56.0 - 77.0 %) 85.2 H Lymph % (Auto) (14.0 - 32.0 %) 10.2 L Boundary % (Auto) (4.8 - 9.0 %) 2.9 L Eos % (Auto) (0.3 - 3.7 %) 0.0 L Baso % (Auto) (0.0 - 2.0 %) 0.1 Neut # (Auto) (2.0 - 7.6 x10 3/uL) 7.58 Lymph # (Auto) (1.0 - 3.8 x10 3/uL) 0.91 L Boundary # (Auto) (0.1 - 0.8 x10 3/uL) 0.26 Eos # (Auto) (0.0 - 0.2 x10 3/uL) 0.00 Baso # (Auto) (0.0 - 0.2 x10 3/uL) 0.01 Abs Immat Gran (auto) (0.00 - 0.03 0.14 H x10 3/uL) Add Manual Diff NO Immature Gran % (0.0 - 2.0 %) 1.6 Nucleated RBC % (0 - 0 %) 0.0 Nucleated RBCs # (Man) (0.0 - 0.1 0.00 x10 3/uL) 09/16 09/16 09/16 09/16 2345 [id number] 1549 1441 Chemistry POC Glucose (70 - 110 MG/DL) 291 H 219 H 62 L 6 0 L Diagnosis, Assessment Plan Free text A P: A/P: Patient is a 56 year old male who presents with: Past Medical History: Prostate abscess, right fo ot foot and ankle gangrene, diabetes, hypertension, hyperlipidemia Past Surgical History: TURP, right BKA Family History: Noncontributory Social History: Denies tobacco, alcohol, or drug use Allergies: NKDA Recent prostate abscess -Status post TURP with unroofing of abscess -IV antibiotics with vancomycin until 09-24-2022 Acute postoperative pain, right foot and ankle g angrene, requiring BKA -Patient is at risk for further amputations or l oss of limb due to comorbid conditions -Status post right BKA 08/28/2022 -DC Check 10/325 1 tablet p.o. every 4 hours as needed pain scale 4 10 -DC Dilaudid 0.5 mg IV daily as needed pain scale 7 10, second line therapy () -Tylenol 650 mg p.o. every 6 hours as needed ofelia n scale 1 3 -Percocet 10/325mg every 4 hours as needed, pain scale 4-10 (09/10) -Lidoderm patch to left ankle daily -IV antibiotics with vancomycin until 09-24-2022 -Local wound care -manageable Diabetic peripheral neuropathy -amitriptyline 25mg PO QHS -Gabapentin 100mg every 8 hours (09/10) -manageable Hypertension -We will monitor hypertension and tachycardia du e to pain, and hypotension as well as bradycardia secondary over sedation with narcotics -Hydralazine as needed Elevated LFTs -08/20/22-AST 51, ALT 22 -09/03/2022-AST 15, ALT 7 -Patient will require close monitoring since he is using narcotics with Tylenol Impaired functional mobility, balance, gait, and endurance -PT/OT Antalgic/Impaired gait -PT/OT -Improve strength, endurance, self-care, gait, b alance, ADLs -Fall precautions per unit protocol -Pain medications as outlined above Constipation -We will monitor while utilizing opioid narcotic medications. -Adequate fluid intake also discussed. -Colace 100 mg p.o. twice daily as needed -Dulcolax 10 mg rectally daily as needed -Senna lax 8.6mg daily -Miralax 17gm daily -manageable Disposition: percocet 10/325 mg q6h prn pain , gabapentin 100mg q8h sent to [facility]/ pharmacy #[id number]] [address] [place], [place] [address] [address] Phone: Patient has failed conservative medical therapy. Patient will require monitoring while utilize na rcotic medications for any adverse effects, and will adjust as needed Plan of care discussed with patient and nurse All diagnostics of last 24 hours been reviewed. Risks versus benefits of opioid medications were reviewed to include, but not limited to respiratory depression, accid ental overdose, altered mental status, sudden , constipation which could result in bowel obstruction, seizures, withdrawal, dependency addiction, risk for falls . Case discussed with Dr Ng whom agrees. Thank you for the consultation. [place] [facility] NURSE: -database searched, no information found Kingsley Ng 10/04/22 1731: Attestations Physician Attestation Agree w/findings plan: The patient was seen and exa mined by Ben Klein. I personally developed the care plan, which was continued by the mid-level provider. I was immediately available. at 1902 Electronically Signed by Kingsley Ng MD on 3 at 1737 RPT #:[id number] END OF REPORT 2022-09-17 12:37:00-00:[address] [facility] ([facility]) Hospitalist Progress Note REPORT#:[id number] REPORT STATUS: Signed DATE:09/17/22 TIME: 1237 PATIENT: KARMA ROWLAND UNIT #: [id number] ROOM/BED: [place] [id number] : 61 AGE: 56 SEX: M ATTEND: Fredy Vences MD ADM AUTHOR: Meera Chavira DO * ALL edits or amendments must be made on the el [employer]/computer document * Subjective Chief complaint: Increasing edema LE to thighs and lower abdomen Review of Systems Cardiovascular: Reports: edema. All systems rev neg: except as noted Objective General VS/I O: Vital Signs: Date Time Temp Pulse Resp B/P B/P Pulse O2 O2 F low FiO2 Mean Ox Delivery Rate 09/17 0955 87 19 184/87 119.5 96 Room air 09/17 0636 97.5 87 18 169/84 112.5 97 Room air 09/16 2345 97.5 89 16 155/82 106.2 92 09/16 1838 97.5 92 17 161/83 108.7 95 Room air 09/16 1440 77 17 159/76 103.8 96 Room air 24 hour I O ending at 0700: 09/17 0700 09/16 1900 Intake Total 60 1485 Output Total 2175 1950 Balance -2115 -465 Intake, Oral 60 1485 Number 1 Bowel Movements Number 0 0 Incontinent Voids Number Voids 0 0 Output, Urine 2175 1950 Patient 80.95 kg Weight Weight Bed scale Measurement Method PATIENT WEIGHT: Weight (lb): 178 Weight (oz): 7.43 Weight (kg): 80.950 Medications: Active Meds + DC'd Last 24 Hrs Furosemide (LASIX 40 mg/4 mL INJECTION) 40 MG Q8 HR IV Hydralazine HCl (APRESOLINE) 50 MG Q8HR PO Furosemide (LASIX 40 mg/4 mL INJECTION) 40 MG Q8 HR IV (DC) Prednisone (predniSONE) 80 MG ONCE ONE PO (DC) Furosemide (LASIX 40 mg/4 mL INJECTION) 40 MG Q8 HR IV (DC) Hydralazine HCl (APRESOLINE) 25 MG Q8HR PO (DC) Daptomycin (CUBICIN 500MG) 500 MG Q48H IV Sodium Chloride (SODIUM CHLORIDE 0.9%) 50 ML Insulin Human Lispro (HUMALOG) 10 UNIT AC SUBQ Heparin Sodium (HEPARIN 5000 UNITS/ML) 5,000 UNI T Q12HR SUBQ Insulin Glargine (Semglee) 20 UNIT BEDTIME SUBQ Meropenem (MEROPENEM) 500 MG Q8H IV Sterile Water (WATER FOR INJECTION) 10 ML Carvedilol (COREG) 25 MG C BK DIN PO Gabapentin (NEURONTIN) 100 MG Q8HR PO Oxycodone/Acetaminophen (PERCOCET 5/325MG TAB) 2 TAB Q4H PRN PRN PO Folic Acid (FOLIC ACID) 2 MG DAILY PO Multivitamins (TAB-A-MOHAN) 1 TAB DAILY PO Furosemide (LASIX 20MG INJ) 20 MG BLOOD-DOSE BET WEEN IV (CKD) Sodium Chloride (SODIUM CHLORIDE) 10 ML ASDIR IV Pantoprazole Sodium (PROTONIX) 40 MG Q12HR IV Polyethylene Glycol (MIRALAX) 17 GM DAILY PO Sennosides (Senna Lax 8.6 MG TABLET) 8.6 MG MADALYN Y PO Sodium Chloride (SODIUM CHLORIDE) 10 ML ASDIR NV N IV Amitriptyline HCl (ELAVIL) 25 MG BEDTIME PO Zinc Oxide (ZINC OXIDE 30 GM OINTMENT) 1 APPLIC DAILY TOPICAL Sterile Water (WATER FOR IRRIGATION) DRESSING CH GELACIO ASDIR PRN IRR Insulin Human Lispro (HUMALOG) 0 AC HS SUBQ Dextrose/Water (DEXTROSE 10% IN WATER) 125 ML DIR PRN IV (CKD) Dextrose/Water (DEXTROSE 10% IN WATER) 250 ML DIR PRN IV (CKD) Glucagon (GLUCAGON) 1 MG ASDIR PRN IM Lidocaine (LIDODERM) 1 PATCH DAILY TOPICAL Acetaminophen (TYLENOL) 650 MG Q6H PRN PRN PO Bisacodyl (DULCOLAX) 10 MG DAILY PRN PRN RECTAL Docusate Sodium (COLACE) 100 MG Q12H PRN PRN PO Hydralazine HCl (APRESOLINE) 10 MG Q6H PRN PRN IV Ondansetron HCl (ZOFRAN) 4 MG Q6H PRN PRN IV Physical Exam General appearance: alert, awake, oriented, no a cute distress, pleasant, conversational, mental status normal, no respira tory distress Head/Eyes: atraumatic, normocephalic ENT: moist mucosal membranes Neck: no JVD Cardiovascular: normal heart sounds, regular rat e rhythm Respiratory: aerating well, clear to auscultatio n Abdomen: non-tender, normal bowel sounds Genitourinary: no bladder distention Extremities: edema (1+ pitting edema to thigh), moves all, normal capillary refill Musculoskeletal: normal inspection 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 X 3, 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 Considered stroke alert: no Skin: dry, intact Psychiatry: normal affect, normal judgment/insig ht Results Findings/Data: Laboratory Tests 09/17 09/17 09/17 09/17 09/17 1027 0951 0601 0451 0450 Chemistry Sodium (134 - 147 mEq/L) 136 Potassium (3.4 - 5.0 mEq/L) 4.5 Chloride (100 - 108 mEq/L) 107 Carbon Dioxide (21 - 33 mEq/l) 21 Anion Gap (0 - 20) 12 BUN (7 - 18 mg/dL) 66 H Creatinine (0.6 - 1.3 mg/dL) 2.4 H Glomerular Filtr Rate (90 - 95) 30.5 L Glucose (70 - 110 mg/dL) 285 H POC Glucose (70 - 110 MG/DL) 256 H 287 H 286 H 273 H Calcium (8.0 - 10.5 mg/dL) 7.4 L Phosphorus (2.5 - 4.9 MG/DL) 4.5 Magnesium (1.80 - 2.40 mg/dL) 1.97 09/16 09/16 09/16 09/16 2345 1931 1549 1441 Chemistry POC Glucose (70 - 110 MG/DL) 291 H 219 H 62 L 6 0 L Laboratory Tests 09/17 0450 Hematology WBC (4.5 - 11.0 x10 3/uL) 8.9 RBC (4.00 - 5.60 x10 6/uL) 2.83 L Hgb (12.5 - 16.9 g/dL) 8.1 L Hct (37.5 - 50.7 %) 24.9 L MCV (81.0 - 99.0 fL) 88.0 MCH (27.0 - 33.0 pg) 28.6 MCHC (33.0 - 37.0 g/dL) 32.5 L RDW (11.5 - 14.5 %) 14.6 H Plt Count (150 - 400 x10 3/uL) 374 MPV (7.0 - 9.0 fL) 9.6 H Neut % (Auto) (56.0 - 77.0 %) 85.2 H Lymph % (Auto) (14.0 - 32.0 %) 10.2 L Boundary % (Auto) (4.8 - 9.0 %) 2.9 L Eos % (Auto) (0.3 - 3.7 %) 0.0 L Baso % (Auto) (0.0 - 2.0 %) 0.1 Neut # (Auto) (2.0 - 7.6 x10 3/uL) 7.58 Lymph # (Auto) (1.0 - 3.8 x10 3/uL) 0.91 L Boundary # (Auto) (0.1 - 0.8 x10 3/uL) 0.26 Eos # (Auto) (0.0 - 0.2 x10 3/uL) 0.00 Baso # (Auto) (0.0 - 0.2 x10 3/uL) 0.01 Abs Immat Gran (auto) (0.00 - 0.03 x10 3/uL) 0. 14 H Add Manual Diff NO Immature Gran % (0.0 - 2.0 %) 1.6 Nucleated RBC % (0 - 0 %) 0.0 Nucleated RBCs # (Man) (0.0 - 0.1 x10 3/uL) 0.0 0 Diagnosis, Assessment Plan Consultants: cardiology, endocrinology, hospital ist, infectious disease, podiatry Free Text DxA P Notes Free text DxA P notes: Gangrene of right foot s/p Below- knee amputatio n Prostate abscess MRSA bacteremia Hx of Diabetes, Diabetic neuropathy HTN ERIKA PLANS: Continue with PT/OT per primary Wound care and Abx as per ID Hepain PPX IV iron BP continues to be elevated, add Hydralazine. co nt Metoprolol to 25 mg BID BS above target due to recent steroids started b y Nephrology for AIN - Endo adjusting insulin pain control creatinine continuing to trend down Hgb stabilized. continue to monitor Electronically Signed by Meera Chavira DO on 3 at 1240 RPT #:[id number] END OF REPORT 2022-09-17 12:10:00-00:00 [facility] ([facility]) Infectious Dis. Progress Note REPORT#:[id number] REPORT STATUS: Signed DATE:09/17/22 TIME: 1210 PATIENT: KARMA ROWLAND UNIT #: [id number] [place] [facility] [place] [place] AGE: 56 SEX: M ATTEND: Fredy Vences MD ADM AUTHOR: Linda Anderson * ALL edits or amendments must be made on the el [employer]/computer document * Subjective HPI: PT is a 56yr old male with h istory of diabetes mellitus type 2, hypertension who was admitted with altered mental status and righ t-sided foot infection. According to him, he noticed a blister on his right foot around 3 days prior to presentation. His foot got progressively more sw ollen and erythema extended proximally to his lateral foot and ankle. CT abd omen and pelvis with contrast is concerning for possible prostate abscess. CT of lower extremity without contrast shows extensive sof t tissue edema with mottled gas in the subcutaneous and intramuscular compartments of the foot, comp atible with gas-forming infection. Patient's blood cultures have come ba ck positive for MRSA in 2 out of 2 sets. PT has had persistent (+)Ve cx for MR 08/18- 08/22. He underwent a debridement of his foot on 08/19 and cx g rew MRSA. PT was started on Vancomycin and clindamycin on 08/18. His MRI showed a prosta te abscess. 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 Pt underwent a transrectal aspiration and unroofing of prostate abscess 08/26 and cx grew Citrobacter, Enterococcus, MRSA. 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 JIMENA done 09/02. Pt was tr ansferred to Rehab on 09/02. Patient reports: No: cough, diarrhea, fever, headache, nausea, sh ortness of breath, vomiting. Portions of this section janice e scribed by Jill Quintero on 09/17/22 at 1210 Objective General VS/I O: Vital Signs Date Temp Pulse Resp B/P B/P Mean Pulse Ox FiO2 09/16-09/17 97.5 77-92 16-19 155-184/76-87 103. 8-119.5 92-97 Last Documented: Result Date Time Pulse Ox 96 09/17 0955 B/P 184/87 09/17 0955 B/P Mean 119.5 09/17 0955 O2 Delivery Room air 09/17 0955 Pulse 87 09/17 0955 Resp 19 09/17 0955 Temp 97.5 09/17 0636 O2 Flow Rate 2 09/08 1322 Vital Signs: Date Time Temp Pulse Resp B/P B/P Pulse O2 O2 F low FiO2 Mean Ox Delivery Rate 09/17 0955 87 19 184/87 119.5 96 Room air 09/17 0636 97.5 87 18 169/84 112.5 97 Room air 09/16 2345 97.5 89 16 155/82 106.2 92 09/16 1838 97.5 92 17 161/83 108.7 95 Room air 09/16 1440 77 17 159/76 103.8 96 Room air 24 hour I O ending at 0700: 09/17 0700 09/16 1900 Intake Total 60 1485 Output Total 2175 1950 Balance -2115 -465 Intake, Oral 60 1485 Number 1 Bowel Movements Number 0 0 Incontinent Voids Number Voids 0 0 Output, Urine 2175 1950 Patient 80.95 kg Weight Weight Bed scale Measurement Method PATIENT WEIGHT: Weight (lb): 178 Weight (oz): 7.43 Weight (kg): 80.950 Antibiotic start date: Antibiotic: vancomycin Start Date:09/03-09/12 Antibiotic: daptomycin Start Date:08/28-09/03, restarted on 09/12 Antibiotic: cefepime Start Date:09/01-09/12 Antibiotic: merrem Start Date:08/27-09/01, 09/12- Physical Exam Head/Eyes: atraumatic, clear cornea, EOMI, felisa l conjunctiva/sclera, normal eyelids/periorb, normocephalic, PERRL ENT: moist mucosal membranes, normal dentition Neck: full range of motion Cardiovascular: normal heart sounds, regular rat e rhythm Respiratory: clear to auscultation, aerating wel l Abdomen: non-tender, normal bowel sounds, soft Extremities: moves all, right BKA Left foot woun d +dressing in place 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 X 3 Considered stroke alert: no Skin: dry, intact Results Findings/Data: Laboratory Tests 09/17 09/17 09/17 09/17 09/17 1027 0951 0601 0451 0450 Chemistry Sodium (134 - 147 mEq/L) 136 Potassium (3.4 - 5.0 mEq/L) 4.5 Chloride (100 - 108 mEq/L) 107 Carbon Dioxide (21 - 33 mEq/l) 21 Anion Gap (0 - 20) 12 BUN (7 - 18 mg/dL) 66 H Creatinine (0.6 - 1.3 mg/dL) 2.4 H Glomerular Filtr Rate (90 - 95) 30.5 L Glucose (70 - 110 mg/dL) 285 H POC Glucose (70 - 110 MG/DL) 256 H 287 H 286 H 273 H Calcium (8.0 - 10.5 mg/dL) 7.4 L Phosphorus (2.5 - 4.9 MG/DL) 4.5 Magnesium (1.80 - 2.40 mg/dL) 1.97 09/16 09/16 09/16 09/16 2345 1931 1549 1441 Chemistry POC Glucose (70 - 110 MG/DL) 291 H 219 H 62 L 6 0 L Laboratory Tests 09/17 0450 Hematology WBC (4.5 - 11.0 x10 3/uL) 8.9 RBC (4.00 - 5.60 x10 6/uL) 2.83 L Hgb (12.5 - 16.9 g/dL) 8.1 L Hct (37.5 - 50.7 %) 24.9 L MCV (81.0 - 99.0 fL) 88.0 MCH (27.0 - 33.0 pg) 28.6 MCHC (33.0 - 37.0 g/dL) 32.5 L RDW (11.5 - 14.5 %) 14.6 H Plt Count (150 - 400 x10 3/uL) 374 MPV (7.0 - 9.0 fL) 9.6 H Neut % (Auto) (56.0 - 77.0 %) 85.2 H Lymph % (Auto) (14.0 - 32.0 %) 10.2 L Boundary % (Auto) (4.8 - 9.0 %) 2.9 L Eos % (Auto) (0.3 - 3.7 %) 0.0 L Baso % (Auto) (0.0 - 2.0 %) 0.1 Neut # (Auto) (2.0 - 7.6 x10 3/uL) 7.58 Lymph # (Auto) (1.0 - 3.8 x10 3/uL) 0.91 L Boundary # (Auto) (0.1 - 0.8 x10 3/uL) 0.26 Eos # (Auto) (0.0 - 0.2 x10 3/uL) 0.00 Baso # (Auto) (0.0 - 0.2 x10 3/uL) 0.01 Abs Immat Gran (auto) (0.00 - 0.03 x10 3/uL) 0. 14 H Add Manual Diff NO Immature Gran % (0.0 - 2.0 %) 1.6 Nucleated RBC % (0 - 0 %) 0.0 Nucleated RBCs # (Man) (0.0 - 0.1 x10 3/uL) 0.0 0 Laboratory Tests: 09/17 09/17 09/17 09/17 09/17 1027 0951 0601 0451 0450 Chemistry Sodium (134 - 147 mEq/L) 136 Potassium (3.4 - 5.0 mEq/L) 4.5 Chloride (100 - 108 mEq/L) 107 Carbon Dioxide (21 - 33 mEq/l) 21 Anion Gap (0 - 20) 12 BUN (7 - 18 mg/dL) 66 H Creatinine (0.6 - 1.3 mg/dL) 2.4 H Glomerular Filtr Rate (90 - 95) 30.5 L Glucose (70 - 110 mg/dL) 285 H POC Glucose (70 - 110 MG/DL) 256 H 287 H 286 H 273 H Calcium (8.0 - 10.5 mg/dL) 7.4 L Phosphorus (2.5 - 4.9 MG/DL) 4.5 Magnesium (1.80 - 2.40 mg/dL) 1.97 Hematology WBC (4.5 - 11.0 x10 3/uL) 8.9 RBC (4.00 - 5.60 x10 6/uL) 2.83 L Hgb (12.5 - 16.9 g/dL) 8.1 L Hct (37.5 - 50.7 %) 24.9 L MCV (81.0 - 99.0 fL) 88.0 MCH (27.0 - 33.0 pg) 28.6 MCHC (33.0 - 37.0 g/dL) 32.5 L RDW (11.5 - 14.5 %) 14.6 H Plt Count (150 - 400 x10 3/uL) 374 MPV (7.0 - 9.0 fL) 9.6 H Neut % (Auto) (56.0 - 77.0 %) 85.2 H Lymph % (Auto) (14.0 - 32.0 %) 10.2 L Boundary % (Auto) (4.8 - 9.0 %) 2.9 L Eos % (Auto) (0.3 - 3.7 %) 0.0 L Baso % (Auto) (0.0 - 2.0 %) 0.1 Neut # (Auto) (2.0 - 7.6 x10 3/uL) 7.58 Lymph # (Auto) (1.0 - 3.8 x10 3/uL) 0.91 L Boundary # (Auto) (0.1 - 0.8 x10 3/uL) 0.26 Eos # (Auto) (0.0 - 0.2 x10 3/uL) 0.00 Baso # (Auto) (0.0 - 0.2 x10 3/uL) 0.01 Abs Immat Gran (auto) (0.00 - 0.03 0.14 H x10 3/uL) Add Manual Diff NO Immature Gran % (0.0 - 2.0 %) 1.6 Nucleated RBC % (0 - 0 %) 0.0 Nucleated RBCs # (Man) (0.0 - 0.1 0.00 x10 3/uL) 09/16 09/16 09/16 09/16 09/16 2345 1931 1549 1441 1110 Chemistry POC Glucose (70 - 110 MG/DL) 291 H 219 H 62 L 6 0 L 148 H 09/16 09/16 09/15 09/15 0553 0455 1937 1640 Chemistry Sodium (134 - 147 mEq/L) 135 Potassium (3.4 - 5.0 mEq/L) 4.5 Chloride (100 - 108 mEq/L) 108 Carbon Dioxide (21 - 33 mEq/l) 20 L Anion Gap (0 - 20) 11 BUN (7 - 18 mg/dL) 60 H Creatinine (0.6 - 1.3 mg/dL) 2.7 H Glomerular Filtr Rate (90 - 95) 26.5 L Glucose (70 - 110 mg/dL) 175 H POC Glucose (70 - 110 MG/DL) 195 H 124 H 137 H Calcium (8.0 - 10.5 mg/dL) 7.5 L Phosphorus (2.5 - 4.9 MG/DL) 4.6 Magnesium (1.80 - 2.40 mg/dL) 1.93 Hematology WBC (4.5 - 11.0 x10 3/uL) 9.5 RBC (4.00 - 5.60 x10 6/uL) 2.70 L Hgb (12.5 - 16.9 g/dL) 7.6 L Hct (37.5 - 50.7 %) 23.7 L MCV (81.0 - 99.0 fL) 87.8 MCH (27.0 - 33.0 pg) 28.1 MCHC (33.0 - 37.0 g/dL) 32.1 L RDW (11.5 - 14.5 %) 14.6 H Plt Count (150 - 400 x10 3/uL) 360 MPV (7.0 - 9.0 fL) 9.6 H Neut % (Auto) (56.0 - 77.0 %) 73.4 Lymph % (Auto) (14.0 - 32.0 %) 18.6 Boundary % (Auto) (4.8 - 9.0 %) 6.7 Eos % (Auto) (0.3 - 3.7 %) 0.2 L Baso % (Auto) (0.0 - 2.0 %) 0.1 Neut # (Auto) (2.0 - 7.6 x10 3/uL) 6.99 Lymph # (Auto) (1.0 - 3.8 x10 3/uL) 1.77 Boundary # (Auto) (0.1 - 0.8 x10 3/uL) 0.64 Eos # (Auto) (0.0 - 0.2 x10 3/uL) 0.02 Baso # (Auto) (0.0 - 0.2 x10 3/uL) 0.01 Abs Immat Gran (auto) (0.00 - 0.03 x10 3/uL) 0. 10 H Add Manual Diff NO Immature Gran % (0.0 - 2.0 %) 1.0 Nucleated RBC % (0 - 0 %) 0.0 Nucleated RBCs # (Man) (0.0 - 0.1 x10 3/uL) 0.0 0 Immunology Complement C3 (82 - 167 mg/dL) 121 Complement C4 (12 - 38 mg/dL) 31 09/15 1304 Urines Urine Color (YEL/STRAW) YELLOW Urine Appearance (CLEAR) SL CLOUDY Urine pH (5.0 - 7.0) 5.0 Ur Specific [place] (1.005 - 1.030) 1.013 Urine Protein (NEGATIVE) 2+ H Urine Glucose (UA) (NEGATIVE) 2+ H Urine Ketones (NEGATIVE) NEGATIVE Urine Blood (NEGATIVE) 2+ H Urine Nitrite (NEGATIVE) NEGATIVE Urine Bilirubin (NEGATIVE) NEGATIVE Urine Urobilinogen (0.2 - 1.0 mg/dL) 0.2 Ur Leukocyte Esterase (NEGATIVE) TRACE H Urine RBC (0 - 3 RBC/HPF) 21-50 Urine WBC (0 - 3 WBC/HPF) 4-9 H Ur Squamous Epith Cells (NONE SEEN /HPF) 0-5 Ur Transition Epith Cell (NONE SEEN /HPF) TRACE Urine Bacteria (NONE SEEN /HPF) TRACE Granular Casts (NONE /LPF) 3-5 Urine Mucus (NONE SEEN /LPF) TRACE Ur Random Creatinine (mg/dL) 52.5 U Random Total Protein (mg/dL) 283 Medication(s) Ordered: Anti-Infective Agents Sig/Jan Start time Last Medication Dose Route Stop Time Status Admin Daptomycin 500 MG Q48H 09/16 1200 AC 09/16 Sodium Chloride 50 ML IV 09/22 1229 1154 Meropenem 500 MG Q8H 09/15 1200 AC 09/17 Sterile Water 10 ML IV 09/22 1159 0439 Blood Formation,Coagulation Sig/Jan Start time Last Medication Dose Route Stop Time Status Admin Heparin Sodium 5,000 UNIT Q12HR 09/15 2100 AC 0 09/17 SUBQ 10/15 205 09 Cardiovascular Drugs Sig/Jan Start time Last Medication Dose Route Stop Time Status Admin Hydralazine HCl 50 MG Q8HR 09/17 1400 AC PO 10/17 1359 Hydralazine HCl 25 MG Q8HR 09/16 1400 DC 09/17 PO 10/16 1359 0455 Carvedilol 25 MG C BK DIN 09/13 1700 AC 09/17 PO 10/13 1659 0900 Hydralazine HCl 10 MG Q6H PRN PRN 09/01 1330 AC IV 10/01 1329 Central Nervous System Agents Sig/Jan Start time Last Medication Dose Route Stop Time Status Admin Gabapentin 100 MG Q8HR 09/10 1400 AC 09/17 PO 10/10 1359 0454 Oxycodone/ 2 TAB Q4H PRN PRN 09/10 0715 AC 08/24 5 Acetaminophen PO 10/10 1300 1910 Amitriptyline HCl 25 MG BEDTIME 09/04 2100 AC 0 09/16 PO 10/04 2058 205 Acetaminophen 650 MG Q6H PRN PRN 09/01 1330 AC PO 10/01 1329 Electrolytic, Caloric, And Daniel Sig/Jan Start time Last Medication Dose Route Stop Time Status Admin Furosemide 40 MG Q8HR 09/17 1400 AC IV 09/18 0601 Furosemide 40 MG Q8HR 09/17 0815 DC IV 09/17 2201 Furosemide 40 MG Q8HR 09/16 1400 DC 09/17 IV 09/17 0601 0454 Furosemide 20 MG BLOOD-DOSE BETWEEN 09/05 1245 CKD IV 10/05 1244 Sodium Chloride 10 ML ASDIR 09/05 1245 AC IV 10/05 1244 Sodium Chloride 10 ML ASDIR PRN 09/05 0630 AC 0 09/15 IV 10/05 0629 0912 Sterile Water See Dose ASDIR PRN 09/03 2030 AC Insts (1) IRR 10/03 2028 Dextrose/Water 125 ML ASDIR PRN 09/03 1515 CKD IV 10/03 1514 Dextrose/Water 250 ML ASDIR PRN 09/03 1515 CKD 09/09 IV 10/03 1514 1529 Gastrointestinal Drugs Sig/Jan Start time Last Medication Dose Route Stop Time Status Admin Pantoprazole Sodium 40 MG Q12HR 09/05 0900 AC 0 09/17 IV 10/05 0859 0859 Polyethylene Glycol 17 GM DAILY 09/05 09 AC 0 09/17 PO 10/05 0859 0901 Sennosides 8.6 MG DAILY 09/05 0900 AC 09/17 PO 10/05 0859 0900 Bisacodyl 10 MG DAILY PRN PRN 09/01 1330 AC RECTAL 10/01 1329 Docusate Sodium 100 MG Q12H PRN PRN 09/01 1330 AC 09/13 PO 10/01 1329 1021 Ondansetron HCl 4 MG Q6H PRN PRN 09/01 1330 AC IV 10/01 1329 Hormones And Synthetic Substit Sig/Jan Start time Last Medication Dose Route Stop Time Status Admin Prednisone 80 MG ONCE ONE 09/17 0715 DC 09/17 PO 09/17 0716 0858 Insulin Human Lispro 10 UNIT AC 09/16 0730 AC 0 09/17 SUBQ 10/16 0729 0859 Insulin Glargine 20 UNIT BEDTIME 09/15 2100 AC 09/16 SUBQ 10/15 2058 205 Insulin Human Lispro 0 AC HS 09/03 1630 AC 08/24 6 SUBQ 10/03 1629 0859 Glucagon 1 MG ASDIR PRN 09/03 1515 AC IM 10/03 1514 Local Anesthetics (Parenteral) Sig/Jan Start time Last Medication Dose Route Stop Time Status Admin Lidocaine 1 PATCH DAILY 09/03 0900 AC 09/17 TOPICAL 10/03 0859 0901 Skin And Mucous Membrane Agent Sig/Jan Start time Last Medication Dose Route Stop Time Status Admin Zinc Oxide 1 APPLIC DAILY 09/04 0900 AC 09/17 TOPICAL 10/04 0859 0901 Vitamins Sig/Jan Start time Last Medication Dose Route Stop Time Status Admin Folic Acid 2 MG DAILY 09/09 09 AC 09/17 PO 10/09 0859 0900 Multivitamins 1 TAB DAILY 09/09 09 AC 09/17 PO 10/09 0859 0900 Dose Instructions: (1)Sterile Water: DRESSING CHANGE Microbiology: 09/15 0515 NASAL: MRSA DNA Surveillance Screen - COMP Portions of this section wer e scribed by Jill Quintero on 09/17/22 at 1210 Treatment Prophylaxis Treatment Prophylaxis Lines: PICC Portions of this section wer e scribed by Jill Quintero on 09/17/22 at 1210 Diagnosis, Assessment Plan Free Text A P: *MRSA bacteremia -Initial blood cultures from 08/18/2022 positive for MRSA in 2 out of 2 sets. -Repeat blood cultures 08/21/2022 are already po sitive for MRSA in 2 out of 2 sets, suggesting persistent high-grade bacteremi a. -TTE 08/18/2022 negative for any obvious vegetat ions. -08/28 neg -JIMENA 09/02 neg *Prostatic abscess -s/p transrectal aspiration and unroofing on 08/26 -cx MRSA, citrobacter (r-cefazolin) Enterococcus raffinosus (S-amp,pcn, vancomycin), bacteriodes *ERIKA -nephrology following; worsening *Hyponatremia *Diabetic neuropathy *Diabetes mellitus type 2 *Hypertension *anemia 09/08 -cont on Cefepime and vancomycin til 5/3 for kellen atment of Prostate abscess -follow esr and crp -EGD today 09/09 -on cefepime and vancomycin til 5/3 for treatmen t of prostate abscess 09/10 on cefepime and vancomycin til 5/3 for treatment of prostate abscess check esr and crp in am 09/11 on cefepime and vancomycin til 5/3 for t reatment of prostate abscess; if pt is discharge before 09/24 can change to oral abx 09/12 on cefepime and vancomycin til 5/3 for treatment of prostate abscess; will change to Merrem 500mg Iv Q12hrs and Daptomycin as creat is worsening 09/15 on Merrem and Daptomycin til 5/3 creat still elevated: nephrology following 09/16 On Merrem and Daptomycin til 5/3 monitor creat. ; improving; nephrology following follow esr and crp 09/17 On Merrem and Daptomycin til 5/3 monitor creat. ; improving; nephrology following follow esr and crp remains afebrile; WBC normal Consultants: cardiology, endocrinology, hospital ist, infectious disease, podiatry Portions of this section wer e scribed by Jill Quintero on 09/17/22 at 1514 at [id number] RPT #:[id number] END OF REPORT 2022-09-17 10:34:00-00:[address] [facility] ([facility]) Cardiology Progress Note REPORT#:[id number] REPORT STATUS: Signed DATE:09/17/22 TIME: 1034 PATIENT: KARMA ROWLAND UNIT #: [id number] ROOM/BED: [place] [id number] : 61 AGE: 56 SEX: M ATTEND: Fredy Vences MD ADM AUTHOR: Rohit Benitez [employer] * ALL edits or amendments must be made on the [employer]/computer document * Rohit Benitez 09/17/22 1034: Subjective Chief complaint: weakness Free Text Subj Notes Free Text Subj Notes: Patient seen and evaluated. Resting in bed, feel s weak today. Blood pressure elevated. Denies chest pain or pressure. Objective General VS/I O: 24 hour I O ending at 0700: 09/17 0700 09/16 1900 Intake Total 60 1485 Output Total 2175 1950 Balance -211 -465 Intake, Oral 60 1485 Number 1 Bowel Movements Number 0 0 Incontinent Voids Number Voids 0 0 Output, Urine 2174 1949 Patient 178 lb Weight Weight Bed scale Measurement Method Vital Signs: Date Time Temp Pulse Resp B/P B/P Pulse O2 O2 F low FiO2 Mean Ox Delivery Rate 09/17 0955 87 19 184/87 119.5 96 Room air 09/17 0636 97.5 87 18 169/84 112.5 97 Room air 09/16 2345 97.5 89 16 155/82 106.2 92 09/16 1838 97.5 92 17 161/83 108.7 95 Room air 09/16 1440 77 17 159/76 103.8 96 Room air PATIENT WEIGHT: Weight (lb): 178 Weight (oz): 7.43 Weight (kg): 80.950 Medications: Active Meds + DC'd Last 24 Hrs Furosemide (LASIX 40 mg/4 mL INJECTION) 40 MG Q8 HR IV Hydralazine HCl (APRESOLINE) 50 MG Q8HR PO Furosemide (LASIX 40 mg/4 mL INJECTION) 40 MG Q8 HR IV (DC) Prednisone (predniSONE) 80 MG ONCE ONE PO (DC) Furosemide (LASIX 40 mg/4 mL INJECTION) 40 MG Q8 HR IV (DC) Hydralazine HCl (APRESOLINE) 25 MG Q8HR PO (DC) Daptomycin (CUBICIN 500MG) 500 MG Q48H IV Sodium Chloride (SODIUM CHLORIDE 0.9%) 50 ML Insulin Human Lispro (HUMALOG) 10 UNIT AC SUBQ Heparin Sodium (HEPARIN 5000 UNITS/ML) 5,000 UNI T Q12HR SUBQ Insulin Glargine (Semglee) 20 UNIT BEDTIME SUBQ Meropenem (MEROPENEM) 500 MG Q8H IV Sterile Water (WATER FOR INJECTION) 10 ML Carvedilol (COREG) 25 MG C BK DIN PO Gabapentin (NEURONTIN) 100 MG Q8HR PO Oxycodone/Acetaminophen (PERCOCET 5/325MG TAB) 2 TAB Q4H PRN PRN PO Folic Acid (FOLIC ACID) 2 MG DAILY PO Multivitamins (TAB-A-MOHAN) 1 TAB DAILY PO Furosemide (LASIX 20MG INJ) 20 MG BLOOD-DOSE BET WEEN IV (CKD) Sodium Chloride (SODIUM CHLORIDE) 10 ML ASDIR IV Pantoprazole Sodium (PROTONIX) 40 MG Q12HR IV Polyethylene Glycol (MIRALAX) 17 GM DAILY PO Sennosides (Senna Lax 8.6 MG TABLET) 8.6 MG MADALYN Y PO Sodium Chloride (SODIUM CHLORIDE) 10 ML ASDIR NV N IV Amitriptyline HCl (ELAVIL) 25 MG BEDTIME PO Zinc Oxide (ZINC OXIDE 30 GM OINTMENT) 1 APPLIC DAILY TOPICAL Sterile Water (WATER FOR IRRIGATION) DRESSING CH GELACIO ASDIR PRN IRR Insulin Human Lispro (HUMALOG) 0 AC HS SUBQ Dextrose/Water (DEXTROSE 10% IN WATER) 125 ML DIR PRN IV (CKD) Dextrose/Water (DEXTROSE 10% IN WATER) 250 ML DIR PRN IV (CKD) Glucagon (GLUCAGON) 1 MG ASDIR PRN IM Lidocaine (LIDODERM) 1 PATCH DAILY TOPICAL Acetaminophen (TYLENOL) 650 MG Q6H PRN PRN PO Bisacodyl (DULCOLAX) 10 MG DAILY PRN PRN RECTAL Docusate Sodium (COLACE) 100 MG Q12H PRN PRN PO Hydralazine HCl (APRESOLINE) 10 MG Q6H PRN PRN I V Ondansetron HCl (ZOFRAN) 4 MG Q6H PRN PRN IV Physical Exam General appearance: alert, awake, oriented Neck: no bruit/NL carotids, no JVD Cardiovascular: CV assessment: regular rate and rhythm, no ecto py, no gallop Respiratory: clear to auscultation, no distress Abdomen: soft, non-tender Lower extremity: LE assessment: edema, normal temperature 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 X 3 Considered stroke alert: no Wound/incision: Location: right bka Psychiatry: normal affect, normal judgment/insig ht, normal mood Results Findings/Data: Laboratory Tests 04/26 04/26 04/26 04/26 04/25 0951 0601 0451 0450 2345 Chemistry Sodium (134 - 147 mEq/L) 136 Potassium (3.4 - 5.0 mEq/L) 4.5 Chloride (100 - 108 mEq/L) 107 Carbon Dioxide (21 - 33 mEq/l) 21 Anion Gap (0 - 20) 12 BUN (7 - 18 mg/dL) 66 H Creatinine (0.6 - 1.3 mg/dL) 2.4 H Glomerular Filtr Rate (90 - 95) 30.5 L Glucose (70 - 110 mg/dL) 285 H POC Glucose (70 - 110 MG/DL) 287 H 286 H 273 H 291 H Calcium (8.0 - 10.5 mg/dL) 7.4 L Phosphorus (2.5 - 4.9 MG/DL) 4.5 Magnesium (1.80 - 2.40 mg/dL) 1.97 09/16 09/16 09/16 09/16 1931 1549 1441 1110 Chemistry POC Glucose (70 - 110 MG/DL) 219 H 62 L 60 L 14 8 H Laboratory Tests 09/17 0450 Hematology WBC (4.5 - 11.0 x10 3/uL) 8.9 RBC (4.00 - 5.60 x10 6/uL) 2.83 L Hgb (12.5 - 16.9 g/dL) 8.1 L Hct (37.5 - 50.7 %) 24.9 L MCV (81.0 - 99.0 fL) 88.0 MCH (27.0 - 33.0 pg) 28.6 MCHC (33.0 - 37.0 g/dL) 32.5 L RDW (11.5 - 14.5 %) 14.6 H Plt Count (150 - 400 x10 3/uL) 374 MPV (7.0 - 9.0 fL) 9.6 H Neut % (Auto) (56.0 - 77.0 %) 85.2 H Lymph % (Auto) (14.0 - 32.0 %) 10.2 L Boundary % (Auto) (4.8 - 9.0 %) 2.9 L Eos % (Auto) (0.3 - 3.7 %) 0.0 L Baso % (Auto) (0.0 - 2.0 %) 0.1 Neut # (Auto) (2.0 - 7.6 x10 3/uL) 7.58 Lymph # (Auto) (1.0 - 3.8 x10 3/uL) 0.91 L Boundary # (Auto) (0.1 - 0.8 x10 3/uL) 0.26 Eos # (Auto) (0.0 - 0.2 x10 3/uL) 0.00 Baso # (Auto) (0.0 - 0.2 x10 3/uL) 0.01 Abs Immat Gran (auto) (0.00 - 0.03 x10 3/uL) 0. 14 H Add Manual Diff NO Immature Gran % (0.0 - 2.0 %) 1.6 Nucleated RBC % (0 - 0 %) 0.0 Nucleated RBCs # (Man) (0.0 - 0.1 x10 3/uL) 0.0 0 Laboratory Tests 09/17 0450 Chemistry Magnesium (1.80 - 2.40 mg/dL) 1.97 Diagnosis, Assessment Plan Consultants: cardiology, endocrinology, hospital ist, infectious disease, podiatry Free Text DxA P Notes Free Text DxA P Notes: Impression: 1. Debility 2. Infected right foot status post BKA 3. Bacteremia 4. Diabetes 5. Hypertension 6. Anemia 7. Acute Diastolic CHF 07/2022: Echocardiogram with normal LVEF, grade 1 diastolic dysfunction, mildly dilated LA, and no significant valvular abnormal ities Recommendation: Patient initially presented with DKA and sepsis. Diagnosed with right foot infection, underwent I D, now status post BKA. P atient had persistent bacteremia with MRSA, underwent JIMENA with negativ e findings of endocarditis. Patient now transferred to [facility] for physical therapy. Known cardiac history of hypertension and hyperlipide renetta. Vital signs stable. Echocardiogram with normal LVEF, grade 1 diastolic dysfunction, mildly dila carlos LA, and no significant valvular abnormalities. Continue to monitor bloo d pressure trend. Continue wound care and IV antibiotic therapy. Continue P T/OT. Supportive care. 09/04: Patient complaining of shortness of breath, abdominal distention and lower extremity edema. Renal function and electrolytes stable. Will give one-time dose of IV Lasix 40 mg. Blood pressure stable. P ending abdominal x-ray. Monitor intake and output. Check BMP in the morn ing. Supportive care. Plan of care discussed with patient, RN and Dr. Parham. 09/05: Patient responded well to IV Lasix , good urine output and improvement in shortness of breath. Chest x-ray ordered . Currently on Lasix 20 mg p.o. daily. Continue monitor renal function and electrolyte s. Pending lower extremity Doppler for lower extremity edema. Continue PT/O T. Supportive care. Plan of care discussed with patient, RN and Dr. Parham. 09/08: Blood pressure has been elevated, started on Coreg 3.125 mg twice daily. Continue monitor blood pressure trend and adjust medication as needed. Still having left lower extremity edema, venous Dopple r negative for DVT. continue gentle diuresis with Lasix 20 mg p.o. daily. Rec ommend Oralia wrap. Patient remains anemic, plan for EGD/colonoscopy today. Supportive care. Plan of care discussed with patient, family, RN and Dr. Parham . 09/09: Patient doing well status post EGD /colonoscopy, negative findings for GI bleed. Blood pressure improving, increased on Co reg to 12.5 mg twice daily. Elevated creatinine noted, nephrology following. No new cardiac complaint. Continue wound care. Continue PT/OT. Supportive care. Plan of care discussed with patient, RN and Dr. Parham. 09/10: Blood pressure remained stable on current regimen of Coreg. Patient continue to have left lower extremity edema. Cur rently on Lasix 20 mg daily. Creatinine 1.9 today, continue to monito r. Patient's albumin level was 1.3, it is possible that patient's lower extremity edema could be related to hypoalbuminemia leading to third spacing. Contin ue PT/OT. Supportive care. Plan of care discussed with patient, RN and Dr. Parham. 09/11: Patient doing well from cardiac standpoint . Blood pressure well controlled. Improvement in lower extremity edema with elevating leg while in bed. Creatinine 2.0 today. Denies shortness of b reath. Will hold diuretic for now and monitor renal function. Supportive care. Plan of care discussed with patient, RN and Dr. Parham. 09/12: Creatinine remains elevated at 2.4 today, antibiotic regimen also being adjusted. Patient still with lower extremity rose ma and rales on physical examination. Will check chest x-ray and limited echocardiogram for further evaluation. Check BNP. Continue hold diuretic fo r now. Supportive care. Plan of care discussed with patient, RN and Dr. Parham . 09/15: Repeat echocardiogram showed LVEF of 55 to 60%, no regional wall motion abnormalities, left ventricu lar diastolic function parameters are indeterminate, mildly dilated LA, and no pericardial effusion. BNP elevated 297. Continue to hold diuretic due to Elevate d creatinine, nephrology following and may consider renal biopsy. Continue to monitor fluid volume s tatus. Overall improvement in lower extremity with Oralia wrap. Continue physical therapy. Supportive care. Plan of care discussed with patient, RN and Dr. Parham. 09/16: Blood pressure slightly elevated, started on hydralazine 25 mg every 8 hours. Continue carvedilol monitor blood pressur e trend. Cr. 2.7 today, continue monitor. Tolerating physical therapy. E uvolemic by physical examination. Supportive care. Plan of care discu ssed with patient, RN and Dr. Parham. 09/17: Blood pressure remains elevated, likely re lated to steroid therapy. Hydralazine increased to 50 mg 3 times daily. Ne phrology managing diuretic therapy. Continue monitor renal function and pako ctrolytes. Improvement in lower extremity swelling. Patient denies chest p ain or shortness of breath. Tolerating PT/OT. Supportive care. Plan of care discussed with patient, RN and Dr. Parham. Gianni Parham 09/18/22 0859: Diagnosis, Assessment Plan Additional comments: Agree with above assessment and plan as document ed by nurse practitioner, continue current management, will follow. Electronically Signed by Rohit Benitez NP on 0 09/17/22 at 1751 at 0903 RPT #:[id number] END OF REPORT 2022-09-17 07:13:00-00:00 [facility] Nephrology Progress Note REPORT#:[id number] REPORT STATUS: Signed DATE:09/17/22 TIME: 712 PATIENT: KARMA ROWLAND UNIT #: [id number] ROOM/BED: [place] [address] : 63 AGE: 56 SEX: M ATTEND: Fredy Vences MD ADM AUTHOR: Barrera Ramírez MD * ALL edits or amendments must be made on the el [employer]/computer document * Subjective Chief complaint: Infected foot HPI: Patient seen and evaluated on 09/09/2022, note [facility], records reviewed and orders placed on 09/08/2022, 56-year-old male with history of diabetes mellitus type 2, hypertension and per ipheral vascular disease who was initially admitted to acute care with altered mental status and rig ht foot infection/gangrene, 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 Patient had persistent anemia requiring blood transfusion. H is fecal occult blood was positive and his creatinine was 1.2 and increase d to 1.4 today, laboratories today showed hemoglobin 8.5, platelet 231, blood count 9.1, sodium 135, potassium 4.6, CO2 22, BUN 22, creatinin e 1.4. Renal consult was requested for evaluation management of pako vated BUN and creatinine and if his decreased GFR is contributing to his anemia. Patient reports: Yes: complaints. Comments: Patient seen and evaluated, HPI no change from i nitial, feels okay. Review of Systems Constitutional: Reports: fatigue. Denies: chills, fever. Skin: Reports: swelling. Denies: abrasion, bruising. Allergy/Immun: Denies: hives, itching. Eyes: Denies: redness, discharge. ENT: Denies: ear drainage, ear ringing. Respiratory: Denies: hemoptysis, SOB. Cardiovascular: Denies: chest pain. Objective General VS/I O: Vital Signs: Date Time Temp Pulse Resp B/P B/P Pulse O2 O2 F low FiO2 Mean Ox Delivery Rate 09/17 0636 36.4 87 18 169/84 112.5 97 Room air 09/16 2345 36.4 89 16 155/82 106.2 92 09/16 1838 36.4 92 17 161/83 108.7 95 Room air 09/16 1440 77 17 159/76 103.8 96 Room air 09/16 0722 36.3 77 18 159/79 105.3 96 Room air 24 hour I O ending at 0700: 09/17 0700 09/16 1900 Intake Total 60 1485 Output Total 2171949 Balance -2115 -465 Intake, Oral 60 1485 Number 1 Bowel Movements Number 0 0 Incontinent Voids Number Voids 0 0 Output, Urine 2174 1949 Patient 80.95 kg Weight Weight Bed scale Measurement Method PATIENT WEIGHT: Weight (lb): 178 Weight (oz): 7.43 Weight (kg): 80.950 Medications Active Meds + DC'd Last 24 Hrs Furosemide (LASIX 40 mg/4 mL INJECTION) 40 MG Q 8HR IV (DC) Hydralazine HCl (APRESOLINE) 25 MG Q8HR PO Daptomycin (CUBICIN 500MG) 500 MG Q48H IV Sodium Chloride (SODIUM CHLORIDE 0.9%) 50 ML Prednisone (predniSONE) 80 MG ONCE ONE PO (DC) Insulin Human Lispro (HUMALOG) 10 UNIT AC SUBQ Heparin Sodium (HEPARIN 5000 UNITS/ML) 5,000 UNI T Q12HR SUBQ Insulin Glargine (Semglee) 20 UNIT BEDTIME SUBQ Meropenem (MEROPENEM) 500 MG Q8H IV Sterile Water (WATER FOR INJECTION) 10 ML Carvedilol (COREG) 25 MG C BK DIN PO Gabapentin (NEURONTIN) 100 MG Q8HR PO Oxycodone/Acetaminophen (PERCOCET 5/325MG TAB) 2 TAB Q4H PRN PRN PO Ferric Sodium Gluconate Complex (FERRLECIT) 125 MG DAILY IV (DC) Sodium Chloride (SODIUM CHLORIDE 0.9%) 100 ML Folic Acid (FOLIC ACID) 2 MG DAILY PO Multivitamins (TAB-A-MOAHN) 1 TAB DAILY PO Furosemide (LASIX 20MG INJ) 20 MG BLOOD-DOSE BET WEEN IV (CKD) Sodium Chloride (SODIUM CHLORIDE) 10 ML ASDIR IV Pantoprazole Sodium (PROTONIX) 40 MG Q12HR IV Polyethylene Glycol (MIRALAX) 17 GM DAILY PO Sennosides (Senna Lax 8.6 MG TABLET) 8.6 MG MADALYN Y PO Sodium Chloride (SODIUM CHLORIDE) 10 ML ASDIR NV N IV Amitriptyline HCl (ELAVIL) 25 MG BEDTIME PO Zinc Oxide (ZINC OXIDE 30 GM OINTMENT) 1 APPLIC DAILY TOPICAL Sterile Water (WATER FOR IRRIGATION) DRESSING CH GELACIO ASDIR PRN IRR Insulin Human Lispro (HUMALOG) 0 AC HS SUBQ Dextrose/Water (DEXTROSE 10% IN WATER) 125 ML DIR PRN IV (CKD) Dextrose/Water (DEXTROSE 10% IN WATER) 250 ML DIR PRN IV (CKD) Glucagon (GLUCAGON) 1 MG ASDIR PRN IM Lidocaine (LIDODERM) 1 PATCH DAILY TOPICAL Acetaminophen (TYLENOL) 650 MG Q6H PRN PRN PO Bisacodyl (DULCOLAX) 10 MG DAILY PRN PRN RECTAL Docusate Sodium (COLACE) 100 MG Q12H PRN PRN PO Hydralazine HCl (APRESOLINE) 10 MG Q6H PRN PRN I V Ondansetron HCl (ZOFRAN) 4 MG Q6H PRN PRN IV Physical Exam General appearance: alert, no acute distress Head/eyes: atraumatic, normocephalic ENT: normal nose Neck: non-tender, supple/no meningismus Cardiovascular: normal heart sounds, no rub Respiratory: aerating well, symmetric expansion Abdomen: non-tender, soft Genitourinary: no flank pain Extremities: non-tender, no edema Musculoskeletal: no CVA tenderness, no tendernes s 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, 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 Considered stroke alert: no Skin: dry, intact Results Findings/Data: Laboratory Tests 09/17 09/17 09/16 09/16 09/16 0601 0451 2345 1931 1549 Chemistry POC Glucose (70 - 110 MG/DL) 286 H 273 H 291 H 219 H 62 L 09/16 09/16 09/16 09/16 09/15 1441 1110 0553 0455 1937 Chemistry Sodium (134 - 147 mEq/L) 135 Potassium (3.4 - 5.0 mEq/L) 4.5 Chloride (100 - 108 mEq/L) 108 Carbon Dioxide (21 - 33 mEq/l) 20 L Anion Gap (0 - 20) 11 BUN (7 - 18 mg/dL) 60 H Creatinine (0.6 - 1.3 mg/dL) 2.7 H Glomerular Filtr Rate (90 - 95) 26.5 L Glucose (70 - 110 mg/dL) 175 H POC Glucose (70 - 110 MG/DL) 60 L 148 H 195 H 124 H Calcium (8.0 - 10.5 mg/dL) 7.5 L Phosphorus (2.5 - 4.9 MG/DL) 4.6 Magnesium (1.80 - 2.40 mg/dL) 1.93 09/15 09/15 09/15 09/15 09/14 1640 1154 0519 0515 1931 Chemistry Sodium (134 - 147 mEq/L) 132 L Potassium (3.4 - 5.0 mEq/L) 4.7 Chloride (100 - 108 mEq/L) 105 Carbon Dioxide (21 - 33 mEq/l) 17 L Anion Gap (0 - 20) 15 BUN (7 - 18 mg/dL) 38 H Creatinine (0.6 - 1.3 mg/dL) 2.9 H Glomerular Filtr Rate (90 - 95) 24.3 L Glucose (70 - 110 mg/dL) 312 H POC Glucose (70 - 110 MG/DL) 137 H 126 H 309 H 193 H Calcium (8.0 - 10.5 mg/dL) 7.2 L Phosphorus (2.5 - 4.9 MG/DL) 5.7 H Magnesium (1.80 - 2.40 mg/dL) 1.96 Total Creatine Kinase (46 - 171 26 L Units/L) Albumin (3.4 - 5.0 g/dL) 1.50 L Prealbumin (16.0 - 40.0 mg/dL) 8.0 L 09/14 09/14 09/14 1543 1130 0736 Chemistry POC Glucose (70 - 110 MG/DL) 60 L 137 H 290 H Laboratory Tests 09/16 09/15 7855 0515 Hematology WBC (4.5 - 11.0 x10 3/uL) 9.5 8.7 RBC (4.00 - 5.60 x10 6/uL) 2.70 L 2.88 L Hgb (12.5 - 16.9 g/dL) 7.6 L 8.2 L Hct (37.5 - 50.7 %) 23.7 L 26.5 L MCV (81.0 - 99.0 fL) 87.8 92.0 MCH (27.0 - 33.0 pg) 28.1 28.5 MCHC (33.0 - 37.0 g/dL) 32.1 L 30.9 L RDW (11.5 - 14.5 %) 14.6 H 14.3 Plt Count (150 - 400 x10 3/uL) 360 341 MPV (7.0 - 9.0 fL) 9.6 H 9.1 H Neut % (Auto) (56.0 - 77.0 %) 73.4 84.9 H Lymph % (Auto) (14.0 - 32.0 %) 18.6 11.3 L Boundary % (Auto) (4.8 - 9.0 %) 6.7 3.2 L Eos % (Auto) (0.3 - 3.7 %) 0.2 L 0.0 L Baso % (Auto) (0.0 - 2.0 %) 0.1 0.1 Neut # (Auto) (2.0 - 7.6 x10 3/uL) 6.99 7.35 Lymph # (Auto) (1.0 - 3.8 x10 3/uL) 1.77 0.98 L Boundary # (Auto) (0.1 - 0.8 x10 3/uL) 0.64 0.28 Eos # (Auto) (0.0 - 0.2 x10 3/uL) 0.02 0.00 Baso # (Auto) (0.0 - 0.2 x10 3/uL) 0.01 0.01 Abs Immat Gran (auto) (0.00 - 0.03 x10 3/uL) 0. 10 H 0.04 H Add Manual Diff NO NO Immature Gran % (0.0 - 2.0 %) 1.0 0.5 Nucleated RBC % (0 - 0 %) 0.0 0.0 Nucleated RBCs # (Man) (0.0 - 0.1 x10 3/uL) 0.0 0 0.00 Laboratory Tests 09/15 1304 Urines Urine Color (YEL/STRAW) YELLOW Urine Appearance (CLEAR) SL CLOUDY Urine pH (5.0 - 7.0) 5.0 Ur Specific [place] (1.005 - 1.030) 1.013 Urine Protein (NEGATIVE) 2+ H Urine Glucose (UA) (NEGATIVE) 2+ H Urine Ketones (NEGATIVE) NEGATIVE Urine Blood (NEGATIVE) 2+ H Urine Nitrite (NEGATIVE) NEGATIVE Urine Bilirubin (NEGATIVE) NEGATIVE Urine Urobilinogen (0.2 - 1.0 mg/dL) 0.2 Ur Leukocyte Esterase (NEGATIVE) TRACE H Urine RBC (0 - 3 RBC/HPF) 21-50 Urine WBC (0 - 3 WBC/HPF) 4-9 H Ur Squamous Epith Cells (NONE SEEN /HPF) 0-5 Ur Transition Epith Cell (NONE SEEN /HPF) TRACE Urine Bacteria (NONE SEEN /HPF) TRACE Granular Casts (NONE /LPF) 3-5 Urine Mucus (NONE SEEN /LPF) TRACE Ur Random Creatinine (mg/dL) 52.5 U Random Total Protein (mg/dL) 283 Microbiology Date/Time Procedure - Status Source Growth 09/15 514 MRSA DNA Surveillance Screen - COMP NASAL Laboratory Tests 09/17 09/17 09/16 09/16 09/16 0601 0451 2345 1931 1549 Chemistry POC Glucose (70 - 110 MG/DL) 286 H 273 H 291 H 219 H 62 L 09/16 09/16 1441 1110 Chemistry POC Glucose (70 - 110 MG/DL) 60 L 148 H Diagnosis, Assessment Plan Free Text A P: Patient seen and evaluated, discussed with care team, images and laboratories reviewed. Diabetes mellitus: Insulin: Monitor bloo d sugar closely and adjust medications as needed, followed by endocrinology. Hypertension: Blood pressure is not well controlled, increase Coreg to 12.5 mg p.o. 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 We will check serum immu nofixation. Acute kidney injury: We will check renal bladder ultrasound, check postvoid residual, check urine protein creatinine ratio Hypomagnesemia: We will supplement 09/10/2022 laboratory this mo rning showed sodium 135, potassium 4.2, CO2 21, BUN 25, creatinine 1.9 continues to worsen, etiology unclear, however his development some eosinophili a not sure if he is developing AIN, suggest changing cefepime to a different class of antibiotic if p ossible, will check renal bladder ultrasound 09/11/2022 laboratory this mo rning showed sodium 134, potassium 4.3, CO2 22, BUN 26, creatinine 2 up from 1.9, hopefully creatini ne is plateauing, renal ultrasound negative. 09/12/2022 laboratory this mo rning showed sodium 134, potassium 4.2, CO2 20, BUN 31, creatinine 2.4 continues to worsen, discussed with ID, AIN is probably the etiology of the unexplained deterioration of his renal function, antibiotics to be adjusted by infectious disease, will give Solu-Medrol 125 mg IV daily for 3 days. Significant lower extremity edema, will st art Lasix 20 mg p.o. twice daily. 09.13.22: pt was seen and examined. Very thirsty. serum creatinine is worsening today. Vancomycin was stopped yesterday and Solu medrol was started. Mild hypovolemic hyponatremia. Will DC lasix and monitor his renal functions. BP is well controlled. 09.14.22: pt was seen and exvielka mined. Feels better but still thirsty. I stopped his lasix. will start NS at 75 c c for one Leter only. serum creatinine is improving. Received three doses of Solu Medrol a well. BP i s on the higher side, likely secondary to steroids. will monitor for now. mild hypovelmic hyponatremia. also could be secondary to hyperglycemia. 09/15/2022 we will give additional dose of Solu-M edrol 125 mg IV today, laboratory this morning show ed sodium 132, potassium 4.7, CO2 17, chloride 105, BUN 38, creatinine 2.9, glucose 312, hem oglobin 8.2, platelet 341, blood count 8.7, needs better blood sugar control, if creati nine does not start improving the next couple days will plan for kidney biopsy 09/16/2022 laboratory this mo rning showed sodium 135, potassium 4.5, CO2 20, BUN 60, creatinine 2.7, better down from 2.9, hemogl obin 7.6, platelet 360, blood count 9.5, will give prednisone 80 mg p.o. today , blood pressure is elevated, will add hydralazine 25 mg p .o. 3 times daily, scrotal and LE swelling will give Lasix 40 mg IV x 3 09/17/[address] ll elevated, will increase hydralazine to 50 mg p.o. 3 times daily, will give 80 mg of prednisone today, urine output with Lasix 4125 , laboratory this morning showed sodium 136, pot assium 4.5, CO2 21, BUN 66, creatinine 2.4 down from 2.7, will give 3 more doses of IV Lasix 40 mg every 8 hours Consultants: cardiology, endocrinology, hospital ist, infectious disease, podiatry Electronically Signed by Barrera Ramírez MD on at 0925 RPT #:[id number] END OF REPORT 2022-09-17 07:13:00-00:[address] [facility] ([facility]) Rehab Progress Note REPORT#:[id number] REPORT STATUS: Signed DATE:09/17/22 TIME: 712 PATIENT: KARMA ROWLAND UNIT #: [id number] ROOM/BED: [place] [address] : 63 AGE: 56 SEX: M ATTEND: Fredy Vences MD ADM AUTHOR: Guero Candelaria * ALL edits or amendments must be made on the [employer]/computer document * Subjective Chief complaint: Rehab follow-up Feels good today Making good progress Still has edema of BLE and scrotum Eating 75-100% at bedside + BM Denies MCBRIDE/N/V/D/CP 14 systems reviewed and neg. except that above. History of present illness: 56 yo HAM with long h/o DM, and HTN who was admitted for fever, flulike symptoms and altered mental status on 08/18. He was doing well until about 3 days prior to admission when he noted blister to have formed o n the dorsum of his foot. His foot started progressively getting more swollen and the blisters started enlarging and extending to his lateral f oot and ankle. He started feeling weak and nauseated. He was noted to have altered mentation and was brought to our ER. He was noted to be in DKA with Blood sugars grea ter than 600. He was seen by podiatry and surgery for BLE wounds and infectio n. He was treated in ICU for sepsis and DKA. He underwent incisional and excisional debridement of right foot and right ankle by podiatry. Patient also found to have prostate abscess underwent transrectal ultrasound aspiration of a bscess and transurethral resection of prostate and unroofing of abscess b y urology Dr. Bass. Endocrinology treated the DKA and blood sugars m uch improved. Patient's right foot was not salvageable and patient und erwent right BKA by Dr. LEROY on 08/28. Patient blood cultures showe d MRSA. Patient continued on antibiotics as per ID. MRI of the pelvis and foot completed. Patient r equired multiple PRBCs for anemia. Patient was found to have a possible small hematoma of the left calf on ultrasound. He complains of pain and swelling of the left ankle. Patient hemodynamically stable and plans are to be transferred to stepdown unit. He is on heparin subcu for VTE. Af ter surgery he is now being mobilized by PT and OT. He is wearing a [employer] orthotic for right knee /BKA protection. Prior to admission the patient was independent living in a single-story house with his spouse with a few steps up to front and back doo r. 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 is at bedside. Patient denie s nausea, vomiting, fever, chills, chest pain, shortness of breath with diz ziness. He is requiring IV Dilaudid for pain control. Mental status back to baseline. Pt is progressing slowly with therapy d/t weakness and pain, self care deficit, decreased endurance and balance, and decreased functional mobility. Pt requiring acute inpt rehab for multidiscipli nary team of nursing, therapy, and physicians. Pt is willing and able to partici- kathleen in 3 hr/day inpt rehab to d/c home safely. Pt' s prior level of function was independent. Objective General VS: Vital Signs: Date Time Temp Pulse Resp B/P B/P Pulse O2 O2 F low FiO2 Mean Ox Delivery Rate 09/17 0636 97.5 87 18 169/84 112.5 97 Room air 09/16 2345 97.5 89 16 155/82 106.2 92 09/16 1838 97.5 92 17 161/83 108.7 95 Room air 09/16 1440 77 17 159/76 103.8 96 Room air 09/16 0722 97.3 77 18 159/79 105.3 96 Room air PATIENT WEIGHT: Weight (lb): 178 Weight (oz): 7.43 Weight (kg): 80.950 Medications: Active Meds + DC'd Last 24 Hrs Furosemide (LASIX 40 mg/4 mL INJECTION) 40 MG Q8 HR IV (DC) Hydralazine HCl (APRESOLINE) 25 MG Q8HR PO Daptomycin (CUBICIN 500MG) 500 MG Q48H IV Sodium Chloride (SODIUM CHLORIDE 0.9%) 50 ML Prednisone (predniSONE) 80 MG ONCE ONE PO (DC) Insulin Human Lispro (HUMALOG) 10 UNIT AC SUBQ Heparin Sodium (HEPARIN 5000 UNITS/ML) 5,000 UNI T Q12HR SUBQ Insulin Glargine (Semglee) 20 UNIT BEDTIME SUBQ Meropenem (MEROPENEM) 500 MG Q8H IV Sterile Water (WATER FOR INJECTION) 10 ML Carvedilol (COREG) 25 MG C BK DIN PO Gabapentin (NEURONTIN) 100 MG Q8HR PO Oxycodone/Acetaminophen (PERCOCET 5/325MG TAB) 2 TAB Q4H PRN PRN PO Ferric Sodium Gluconate Complex (FERRLECIT) 125 MG DAILY IV (DC) Sodium Chloride (SODIUM CHLORIDE 0.9%) 100 ML Folic Acid (FOLIC ACID) 2 MG DAILY PO Multivitamins (TAB-A-MOHAN) 1 TAB DAILY PO Furosemide (LASIX 20MG INJ) 20 MG BLOOD-DOSE BET WEEN IV (CKD) Sodium Chloride (SODIUM CHLORIDE) 10 ML ASDIR IV Pantoprazole Sodium (PROTONIX) 40 MG Q12HR IV Polyethylene Glycol (MIRALAX) 17 GM DAILY PO Sennosides (Senna Lax 8.6 MG TABLET) 8.6 MG MADALYN Y PO Sodium Chloride (SODIUM CHLORIDE) 10 ML ASDIR NV N IV Amitriptyline HCl (ELAVIL) 25 MG BEDTIME PO Zinc Oxide (ZINC OXIDE 30 GM OINTMENT) 1 APPLIC DAILY TOPICAL Sterile Water (WATER FOR IRRIGATION) DRESSING CH GELACIO ASDIR PRN IRR Insulin Human Lispro (HUMALOG) 0 AC HS SUBQ Dextrose/Water (DEXTROSE 10% IN WATER) 125 ML DIR PRN IV (CKD) Dextrose/Water (DEXTROSE 10% IN WATER) 250 ML DIR PRN IV (CKD) Glucagon (GLUCAGON) 1 MG ASDIR PRN IM Lidocaine (LIDODERM) 1 PATCH DAILY TOPICAL Acetaminophen (TYLENOL) 650 MG Q6H PRN PRN PO Bisacodyl (DULCOLAX) 10 MG DAILY PRN PRN RECTAL Docusate Sodium (COLACE) 100 MG Q12H PRN PRN PO Hydralazine HCl (APRESOLINE) 10 MG Q6H PRN PRN I V Ondansetron HCl (ZOFRAN) 4 MG Q6H PRN PRN IV Functional Progress Functional progress: PT daily note comment: S. PATIENT REPORTED INCRE ASED SWELLIN TO ABDOMEN AND SCROTUM, STATES HE HAS NOT BEEN THIS SWOLLEN EV ER . REPORTS GETTING STRONGER O. PATIENT WORKED ON BED MOB, ABLE TO SIT UP EO B WITH AMADO,W ORKED ON ROLLING AND SITTING UP EOB WITH USE OF RAILS. PATIENT WORKED ON SQUAT PIVOT TRANSFER WITH SET UP TO LEFT AND CGA FOR STEADYING. PATIENT WORKED ON WC MOB WITH MOD I 200 FEET . IN THE GYM PATIENT WORKED ON TRANSFE R TO MOVEO WITH MIN A FOR STAND PIVOT, WORKED ON MOVEO LEG PRESS AT 7.5 INCLINE, AT 6 LEVEL. 10 REPSX 5 SETS. PATIENT WORKED ON SQUAT PIVOT TRANSFERS TO WC WITH CGA FROM HIGHE R SURFACE. THIS PM PATIENT WORKED ON BED MBO TO EOB WITH M OD I, APPLIED NESTOR TECH TO RLE AND ABLE TO TRANSFER SQUAT PIVO T WITH CGA TO LEFT SIDE. PATIENT WORKED ON WC MOB TO GYM, SIT TO STANDS IN PARALLEL BARS WITH MIN A. PATIENT GIVEN CUES TO SCOOT TO EDGE OF WC, MOVE TRUNK FORARD AND PUSH OF WC WI TH MIN A TO STAND, PATIENT WORKED ON STI TO STANDS X 5, WORKED ON STAND PIVOT WITH PARALLEL BARS X 3 WITH CGA FOR SAFET Y. PATIENT WORKED ON MOVEO AT 10 DEGREE INCLINE. 10 REPS X 5 SETS. PATIENT WORKED ON STAND PIVOT TRANSFERS TO WITH CGA FOR SAFETY AND SET UP OF SLIDING BOARD, EDUCATED SPOUSE ON USE OF SB, SPOUSE WAS ABLE TO SE TUP SB AND ASSIST PATIENT WITH TRANSFERS TO BED. PATIENT WORKED ON ORALIA WRAP FIGURE 8 OF R STUMP WITH ASSISTANCE X 3 TIMES. EDUCATED ON FIGURE 8, AVOID EXCESSIVE PRESSURE AND WRINKLES.PATIENT LEFT SUPINE IN BED WITH CALL BUTTON IN REACH AND ALARM ENGAGED A. PATIENT IS PROGRESSING WITH PT, REQUIRES CGA FOR TRANSFERS USING SB, WC MOB AMADO, SPOUSE IS ASSISTING WITH TRANSFERS AND ORALIA WRAP OF STUMP, P,C ONTINUE WITH POC WITH AN EMPHASIS ON TRANSFERS AND WC MOB CONTINUE WITH POC Special rehabilitation precautions: Diet Safety/fall Isolation contact Non-weight bearing RLE R BKA Patient had a fall or an intercepted fall this shift: No Anticipated discharge equipment: Drop arm bedsi de commode sliding board Barriers to discharge: Fall risk Endurance Pain Caregiver NWB RLE DIFFICULTY WITH TRANSFERS Strategies for D/C barriers: Fall recovery saeid nita Evaluate pain control Scheduled rest breaks LE EX WC MOB TRANSFER TRAINING CAREGIVER TRAINING Physical Exam General appearance: alert, awake Psych: alert, normal affect, oriented x 3 HEENT: anicteric, sclera clear Neck: supple, no JVD Cardiovascular: S1/S2, no murmur Respiratory: aerating well, clear bilaterally Abdomen: bowel sounds present, non-distended, so ft, non-tender Skin: no rash, R BKA HEALING. 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 3, CNII-XII intact Results Findings/Data: Laboratory Tests 09/17 09/17 09/17 09/17 09/17 1027 0951 0601 0451 0450 Chemistry Sodium (134 - 147 mEq/L) 136 Potassium (3.4 - 5.0 mEq/L) 4.5 Chloride (100 - 108 mEq/L) 107 Carbon Dioxide (21 - 33 mEq/l) 21 Anion Gap (0 - 20) 12 BUN (7 - 18 mg/dL) 66 H Creatinine (0.6 - 1.3 mg/dL) 2.4 H Glomerular Filtr Rate (90 - 95) 30.5 L Glucose (70 - 110 mg/dL) 285 H POC Glucose (70 - 110 MG/DL) 256 H 287 H 286 H 273 H Calcium (8.0 - 10.5 mg/dL) 7.4 L Phosphorus (2.5 - 4.9 MG/DL) 4.5 Magnesium (1.80 - 2.40 mg/dL) 1.97 09/16 09/16 09/16 09/16 09/16 2345 1931 1549 1441 1110 Chemistry POC Glucose (70 - 110 MG/DL) 291 H 219 H 62 L 6 0 L 148 H 09/16 09/16 09/15 09/15 09/15 0553 0455 1937 1640 1154 Chemistry Sodium (134 - 147 mEq/L) 135 Potassium (3.4 - 5.0 mEq/L) 4.5 Chloride (100 - 108 mEq/L) 108 Carbon Dioxide (21 - 33 mEq/l) 20 L Anion Gap (0 - 20) 11 BUN (7 - 18 mg/dL) 60 H Creatinine (0.6 - 1.3 mg/dL) 2.7 H Glomerular Filtr Rate (90 - 95) 26.5 L Glucose (70 - 110 mg/dL) 175 H POC Glucose (70 - 110 MG/DL) 195 H 124 H 137 H 126 H Calcium (8.0 - 10.5 mg/dL) 7.5 L Phosphorus (2.5 - 4.9 MG/DL) 4.6 Magnesium (1.80 - 2.40 mg/dL) 1.93 09/15 09/15 09/14 09/14 09/14 0519 0515 1931 1543 1130 Chemistry Sodium (134 - 147 mEq/L) 132 L Potassium (3.4 - 5.0 mEq/L) 4.7 Chloride (100 - 108 mEq/L) 105 Carbon Dioxide (21 - 33 mEq/l) 17 L Anion Gap (0 - 20) 15 BUN (7 - 18 mg/dL) 38 H Creatinine (0.6 - 1.3 mg/dL) 2.9 H Glomerular Filtr Rate (90 - 95) 24.3 L Glucose (70 - 110 mg/dL) 312 H POC Glucose (70 - 110 MG/DL) 309 H 193 H 60 L 137 H Calcium (8.0 - 10.5 mg/dL) 7.2 L Phosphorus (2.5 - 4.9 MG/DL) 5.7 H Magnesium (1.80 - 2.40 mg/dL) 1.96 Total Creatine Kinase (46 - 171 Units/L) 26 L Albumin (3.4 - 5.0 g/dL) 1.50 L Prealbumin (16.0 - 40.0 mg/dL) 8.0 L Laboratory Tests 09/17 09/16 09/15 0450 0455 0515 Hematology WBC (4.5 - 11.0 x10 3/uL) 8.9 9.5 8.7 RBC (4.00 - 5.60 x10 6/uL) 2.83 L 2.70 L 2.88 L Hgb (12.5 - 16.9 g/dL) 8.1 L 7.6 L 8.2 L Hct (37.5 - 50.7 %) 24.9 L 23.7 L 26.5 L MCV (81.0 - 99.0 fL) 88.0 87.8 92.0 MCH (27.0 - 33.0 pg) 28.6 28.1 28.5 MCHC (33.0 - 37.0 g/dL) 32.5 L 32.1 L 30.9 L RDW (11.5 - 14.5 %) 14.6 H 14.6 H 14.3 Plt Count (150 - 400 x10 3/uL) 374 360 341 MPV (7.0 - 9.0 fL) 9.6 H 9.6 H 9.1 H Neut % (Auto) (56.0 - 77.0 %) 85.2 H 73.4 84.9 H Lymph % (Auto) (14.0 - 32.0 %) 10.2 L 18.6 11.3 L Boundary % (Auto) (4.8 - 9.0 %) 2.9 L 6.7 3.2 L Eos % (Auto) (0.3 - 3.7 %) 0.0 L 0.2 L 0.0 L Baso % (Auto) (0.0 - 2.0 %) 0.1 0.1 0.1 Neut # (Auto) (2.0 - 7.6 x10 3/uL) 7.58 6.99 7. 35 Lymph # (Auto) (1.0 - 3.8 x10 3/uL) 0.91 L 1.77 0.98 L Boundary # (Auto) (0.1 - 0.8 x10 3/uL) 0.26 0.64 0. 28 Eos # (Auto) (0.0 - 0.2 x10 3/uL) 0.00 0.02 0.0 0 Baso # (Auto) (0.0 - 0.2 x10 3/uL) 0.01 0.01 0 .01 Abs Immat Gran (auto) (0.00 - 0.03 x10 3/uL) 0. 14 H 0.10 H 0.04 H Add Manual Diff NO NO NO Immature Gran % (0.0 - 2.0 %) 1.6 1.0 0.5 Nucleated RBC % (0 - 0 %) 0.0 0.0 0.0 Nucleated RBCs # (Man) (0.0 - 0.1 x10 3/uL) 0.0 0 0.00 0.00 Laboratory Tests 09/16 0455 Immunology Complement C3 (82 - 167 mg/dL) 121 Complement C4 (12 - 38 mg/dL) 31 Laboratory Tests 09/15 1304 Urines Urine Color (YEL/STRAW) YELLOW Urine Appearance (CLEAR) SL CLOUDY Urine pH (5.0 - 7.0) 5.0 Ur Specific [place] (1.005 - 1.030) 1.013 Urine Protein (NEGATIVE) 2+ H Urine Glucose (UA) (NEGATIVE) 2+ H Urine Ketones (NEGATIVE) NEGATIVE Urine Blood (NEGATIVE) 2+ H Urine Nitrite (NEGATIVE) NEGATIVE Urine Bilirubin (NEGATIVE) NEGATIVE Urine Urobilinogen (0.2 - 1.0 mg/dL) 0.2 Ur Leukocyte Esterase (NEGATIVE) TRACE H Urine RBC (0 - 3 RBC/HPF) 21-50 Urine WBC (0 - 3 WBC/HPF) 4-9 H Ur Squamous Epith Cells (NONE SEEN /HPF) 0-5 Ur Transition Epith Cell (NONE SEEN /HPF) TRACE Urine Bacteria (NONE SEEN /HPF) TRACE Granular Casts (NONE /LPF) 3-5 Urine Mucus (NONE SEEN /LPF) TRACE Ur Random Creatinine (mg/dL) 52.5 U Random Total Protein (mg/dL) 283 Microbiology Date/Time Procedure - Status Source Growth 09/15 0515 MRSA DNA Surveillance Screen - COMP NASAL Diagnosis, Assessment Plan Free Text A P: Assessment: 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 Leroy Significant impairment in self-care, ADLs and fu nctional mobility Impaired mobility and gait Acute postoperative pain right BKA Diabetic polyneuropathy DKA, DM 2, poorly controlled, A1c greater than 1 4 PAD MRSA bacteremia/sepsis-treated on acute ERIKA Severe hyponatremia-resolved HTN Acute on chronic anemia requiring multiple trans fusions, possible GI bleed Left calf hematoma Edema and clinical arthritis left ankle Early decubitus to left heel/DTI dorsal left mid foot Prostatic abscess 08/26: S/p transrectal ultrasound aspiration of ab scess and transurethral resection of prostate and unroofing of abscess 09/12: Echo: EF 55-59%, grade 1 diastolic dysfunc tion 09/02: JIMENA negative for vegetation MRSA OF NARES 09/08:s/p EGD and colonoscopy. EGD showed mild ga stritis. Colonoscopy showed rectal polyp that was resect ed by snare (tubular adenoma)-repeat colonoscopy in 5 years Plan: -PLOF: Independent with transfers and gait -Amputee rehab program -Continue PT and OT -15/12 rehabilitation nursing care. -Case management for safe discharge planning. -Decubitus prevention -Early decubitus to left heel/DTI dorsal left mi dfoot-zinc oxide to the foot, foam, offloading, podiatry managing -DVT prophylaxis-subcutaneous heparin -Strict fall and safety precautions -Work on bed mobility, transfer training, ADLs, pre-gait and gait exercises -Increase endurance and strength -Monitor pain with therapies -OOB to chair -Monitor p.o. intake and nut rition, albumin 1.3, prealbumin less than 5, dietary consultation, protein supplements to promote hea ling -Diabetes-A1c 14, tight glycemia control- endocr ine on board, insulin adjustments -Endocrinology, ID, podiatry, cardiology, IM con sulted -Pain management adjusting pain medications -Anemia, patient required multiple units of PRBC s on acute, FOBT positive -IV Protonix-consult GI-seri al H H-no evidence of gross bleeding-discussed with Dr. Trinidad -Constipation-abdominal nmepzqrd-BUO-rdnljb-CW S enokot and MiraLAX, DSP -Right YAM-nstofjs-xumwmfij resolved, dr martinez changed vzwiz-mtmhpks-uxuozbwa NESTOR-TECH -MRSA OF [place]ARES on Bactroban protocol -LLE edema-venous Doppler wi th complex heterogeneous hypoechoic fluid collection in the left calf region measuring 8.4, 2.8, 2.5 cm suggestive of hematoma. On low-dose Lasix. Oralia wrap LLE -LE edema could be related to hypoalbuminemia le ading to third spacing-edema improving -Generalized edema-some shor tness of breath and abdominal distention-cardiology gave a dose of IV Lasix-monitor urine output, da jaz weights-SOB resolved -09/05-venous Doppler of LLE-negative for DVT-Oralia wrap dressing and elevation -Anemia-hemoglobin 8.3, 7.7, 8.2, transfused 2 u nits of PRBC on 09/05 -09/08: s/p EGD and colonoscopy. EGD showed mild gastritis. Colonoscopy showed rectal polyp that was resected by snare. Anemia likely secondary to chronic kidney disease. Consult renal. -Pathology of polyp came back as tubular adenoma . recommend repeating colonoscopy in 5 years as per GI -Consider video capsule endoscopy as outpt if ev idence of dropping H/H -Renal ultrasound negative -09/16/2022 laboratory this candelaria lin showed sodium 135, potassium 4.5, CO2 20, BUN 60, creatinine 2.7, better down from 2.9, hemogl obin 7.6, platelet 360, blood count 9.5, will give prednisone 80 mg p.o. today , blood pressure is elevated, will add hydralazine 25 mg p .o. 3 times daily, scrotal and LE swelling will give Lasix 40 mg IV x 3-as per renal -on Merrem and Daptomycin til 09/24 as per ID -Lasix as per nephrology -Completed Solu-Medrol -Noted LLE swelling (not new ) and low albumin. may benefit from albumin infusion + Lasix -CXR-worsening opacities in the right mid and lo wer lung field. Improved left retrocardiac opacities -BNP 297 -09/12: Echo-EF 55-60%, indet erminate diastolic function parameters as per cardio -09/16: Blood pressure slightly elevated, started on hydralazine 25 mg every 8 hours. Continue carvedilol monitor blood pressur e trend. Cr. 2.7 today, continue monitor. Tolerating physical therapy. E uvolemic by physical examination as per cardio. -Advance therapies as tolerated-discusse d treatment plan with patient and -Patient progressing well in therapy. Patient wi th improved transfers and endurance. -Car transfer training 09/23 -Discussed with patient and about renal iss ues that seem to be improving PM R Please see team note. Plan and goals discussed with the patient. I agree with the teams finding ELOS- [09/24] on IV antibiotics until 09/24 DC-Home with -Home health DME-bedside commode, sliding board, wheelchair, drop arm bedside commode Total time 33 minutes greater than 50% of the ti me spent examining patient, discussing with patient abou t slight improvement in renal function, on steroids, medical issues, anemia, amputee rehab, discharge plans, rehab plan of care, goals, therapies, progress, labs, medications. E MR and MAR is reviewed. All questions answered Rehab attestation: Face to face exam completed. Treatment plan disc ussed with patient. Meets continued stay criteria. Agree with interdiscipl inary treatment plan. Electronically Signed by Guero Candelaria on 0 09/17/22 at 1847 RPT #:[id number] END OF REPORT 2022-09-16 20:09:00-00:00 [facility] REPORT#:[id number] REPORT STATUS: Signed DATE:09/16/22 TIME: 2008 PATIENT: KARMA ROWLAND UNIT #: [id number] ROOM/BED: [place] [address] : 61 AGE: 56 SEX: M ATTEND: Mj Vences MD ADM AUTHOR: Liam Pedersen DPM * ALL edits or amendments must be made on the [employer]/computer document * Subjective Chief complaint: left heel ulcer. left ankle pain Patient reports: no confusion, no cough, no fatigue, no fever, no headache, no itching Objective General VS: Last Documented: Result Date Time Pulse Ox 95 09/16 1837 B/P 161/83 09/16 1837 B/P Mean 108.7 09/16 1837 O2 Delivery Room air 09/16 1837 Temp 36.4 09/16 1837 Pulse 92 09/16 183 Resp 17 09/16 1837 O2 Flow Rate 2 09/08 1322 PATIENT WEIGHT: Weight (lb): 165 Weight (oz): 5.55 Weight (kg): 75.000 Medications: Active Meds + DC'd Last 24 Hrs Furosemide (LASIX 40 mg/4 mL INJECTION) 40 MG Q8 HR IV Hydralazine HCl (APRESOLINE) 25 MG Q8HR PO Daptomycin (CUBICIN 500MG) 500 MG Q48H IV Sodium Chloride (SODIUM CHLORIDE 0.9%) 50 ML Prednisone (predniSONE) 80 MG ONCE ONE PO (DC) Insulin Human Lispro (HUMALOG) 10 UNIT AC SUBQ Heparin Sodium (HEPARIN 5000 UNITS/ML) 5,000 UNI T Q12HR SUBQ Insulin Glargine (Semglee) 20 UNIT BEDTIME SUBQ Meropenem (MEROPENEM) 500 MG Q8H IV Sterile Water (WATER FOR INJECTION) 10 ML Carvedilol (COREG) 25 MG C BK DIN PO Gabapentin (NEURONTIN) 100 MG Q8HR PO Oxycodone/Acetaminophen (PERCOCET 5/325MG TAB) 2 TAB Q4H PRN PRN PO Ferric Sodium Gluconate Complex (FERRLECIT) 125 MG DAILY IV (DC) Sodium Chloride (SODIUM CHLORIDE 0.9%) 100 ML Folic Acid (FOLIC ACID) 2 MG DAILY PO Multivitamins (TAB-A-MOHAN) 1 TAB DAILY PO Furosemide (LASIX 20MG INJ) 20 MG BLOOD-DOSE BET WEEN IV (CKD) Sodium Chloride (SODIUM CHLORIDE) 10 ML ASDIR IV Pantoprazole Sodium (PROTONIX) 40 MG Q12HR IV Polyethylene Glycol (MIRALAX) 17 GM DAILY PO Sennosides (Senna Lax 8.6 MG TABLET) 8.6 MG MADALYN Y PO Sodium Chloride (SODIUM CHLORIDE) 10 ML ASDIR NV N IV Amitriptyline HCl (ELAVIL) 25 MG BEDTIME PO Zinc Oxide (ZINC OXIDE 30 GM OINTMENT) 1 APPLIC DAILY TOPICAL Sterile Water (WATER FOR IRRIGATION) DRESSING CH GELACIO ASDIR PRN IRR Insulin Human Lispro (HUMALOG) 0 AC HS SUBQ Dextrose/Water (DEXTROSE 10% IN WATER) 125 ML DIR PRN IV (CKD) Dextrose/Water (DEXTROSE 10% IN WATER) 250 ML DIR PRN IV (CKD) Glucagon (GLUCAGON) 1 MG ASDIR PRN IM Lidocaine (LIDODERM) 1 PATCH DAILY TOPICAL Acetaminophen (TYLENOL) 650 MG Q6H PRN PRN PO Bisacodyl (DULCOLAX) 10 MG DAILY PRN PRN RECTAL Docusate Sodium (COLACE) 100 MG Q12H PRN PRN PO Hydralazine HCl (APRESOLINE) 10 MG Q6H PRN PRN I V Ondansetron HCl (ZOFRAN) 4 MG Q6H PRN PRN IV I O: 24 hour I O ending at 0700: 09/16 0700 09/15 1900 Intake Total 200 1060 Output Total 1600 1400 Balance -1400 -340 Intake, Oral 200 1060 Number 0 0 Incontinent Voids Number Voids 0 0 Output, Urine 1600 1400 Dietitian nutrition assessment The data set between the solid lines has been im ported from the dietitian's assessment. BMI Calculated: 26.7 Nutrition related diagnosis: Nutrition diagnosis details: Nutrition problem: Altered nutrition labs Nutrition etiology: DM Nutrition signs and symptoms: HYPER/HYPOGLYCEMIA , A1C >14 Nutrition prescription: CONTINUE DM DIET Dietitian name: You Palmer, DIET Assessment completed: 09/09/22 Physical Exam General appearance: alert, awake, oriented Wound/incision: Location: left foot Site condition: dp/pt 2/4 left. light touch dec reased left foot. ulcer starting at posterior left heel. eccymosis noted . early likely stage 1. left ankle has edema. pain with aggressive ROM left a nkle. dorsal left midfoot is starting to have tissue injury LE vascular pulse assess: 2+ L posterior tibialis, 2+ L dorsalis pedis Considered stroke alert: no Ulcer: Location: DTI dorsal left midfoot Results Findings/Data: Laboratory Tests: 09/16 09/16 09/16 09/16 09/16 1931 1549 1441 1110 0553 Chemistry POC Glucose (70 - 110 MG/DL) 219 H 62 L 60 L 14 8 H 195 H 09/16 0455 Chemistry Sodium (134 - 147 mEq/L) 135 Potassium (3.4 - 5.0 mEq/L) 4.5 Chloride (100 - 108 mEq/L) 108 Carbon Dioxide (21 - 33 mEq/l) 20 L Anion Gap (0 - 20) 11 BUN (7 - 18 mg/dL) 60 H Creatinine (0.6 - 1.3 mg/dL) 2.7 H Glomerular Filtr Rate (90 - 95) 26.5 L Glucose (70 - 110 mg/dL) 175 H Calcium (8.0 - 10.5 mg/dL) 7.5 L Phosphorus (2.5 - 4.9 MG/DL) 4.6 Magnesium (1.80 - 2.40 mg/dL) 1.93 Hematology WBC (4.5 - 11.0 x10 3/uL) 9.5 RBC (4.00 - 5.60 x10 6/uL) 2.70 L Hgb (12.5 - 16.9 g/dL) 7.6 L Hct (37.5 - 50.7 %) 23.7 L MCV (81.0 - 99.0 fL) 87.8 MCH (27.0 - 33.0 pg) 28.1 MCHC (33.0 - 37.0 g/dL) 32.1 L RDW (11.5 - 14.5 %) 14.6 H Plt Count (150 - 400 x10 3/uL) 360 MPV (7.0 - 9.0 fL) 9.6 H Neut % (Auto) (56.0 - 77.0 %) 73.4 Lymph % (Auto) (14.0 - 32.0 %) 18.6 Boundary % (Auto) (4.8 - 9.0 %) 6.7 Eos % (Auto) (0.3 - 3.7 %) 0.2 L Baso % (Auto) (0.0 - 2.0 %) 0.1 Neut # (Auto) (2.0 - 7.6 x10 3/uL) 6.99 Lymph # (Auto) (1.0 - 3.8 x10 3/uL) 1.77 Boundary # (Auto) (0.1 - 0.8 x10 3/uL) 0.64 Eos # (Auto) (0.0 - 0.2 x10 3/uL) 0.02 Baso # (Auto) (0.0 - 0.2 x10 3/uL) 0.01 Abs Immat Gran (auto) (0.00 - 0.03 x10 3/uL) 0 .10 H Add Manual Diff NO Immature Gran % (0.0 - 2.0 %) 1.0 Nucleated RBC % (0 - 0 %) 0.0 Nucleated RBCs # (Man) (0.0 - 0.1 x10 3/uL) 0.0 0 Diagnosis, Assessment Plan Free Text A P: DM with neuropathy early decub ulcer left heel OA/edema left ankle early ulcer/DTI dorsal left midfoot zinc oxide to foot and heel foam to heel on IV abx on PO gabapentin offloading boot oralia wraps to ankle, only when OOB with therapy. zinc oxide interchange with bactroban ( applied to dorsal left midfoot early ulcer) Consultants: cardiology, endocrinology, hospital ist, infectious disease, podiatry Electronically Signed by Liam Pedersen DPM on 0 09/16/22 at 2009 RPT #:[id number] END OF REPORT 2022-09-16 17:23:00-00:00 [facility] End[facility] Progress Note REPORT#:[id number] REPORT STATUS: Signed DATE:09/16/22 TIME: 1722 PATIENT: KARMA ROWLAND UNIT #: [id number] ROOM/BED: [place] [address] : 61 AGE: 56 SEX: M ATTEND: Fredy Vences MD ADM AUTHOR: Braxton Chapin MD * ALL edits or amendments must be made on the [employer]/computer document * Subjective Patient reports: no complaints Objective General VS: Last Documented: Result Date Time Pulse Ox 96 09/16 1440 B/P 159/76 09/16 1440 B/P Mean 103.8 09/16 1440 O2 Delivery Room air 09/16 1440 Pulse 77 09/16 1440 Resp 17 09/16 1440 Temp 36.3 09/16 0722 O2 Flow Rate 2 09/08 1322 PATIENT WEIGHT: Weight (lb): 165 Weight (oz): 5.55 Weight (kg): 75.000 Medications: Active Meds + DC'd Last 24 Hrs Furosemide (LASIX 40 mg/4 mL INJECTION) 40 MG Q8 HR IV Hydralazine HCl (APRESOLINE) 25 MG Q8HR PO Daptomycin (CUBICIN 500MG) 500 MG Q48H IV Sodium Chloride (SODIUM CHLORIDE 0.9%) 50 ML Prednisone (predniSONE) 80 MG ONCE ONE PO (DC) Insulin Human Lispro (HUMALOG) 10 UNIT AC SUBQ Heparin Sodium (HEPARIN 5000 UNITS/ML) 5,000 UNI T Q12HR SUBQ Insulin Glargine (Semglee) 20 UNIT BEDTIME SUBQ Meropenem (MEROPENEM) 500 MG Q8H IV Sterile Water (WATER FOR INJECTION) 10 ML Insulin Glargine (Semglee) 14 UNIT BEDTIME SUBQ (DC) Insulin Human Lispro (HUMALOG) 7 UNIT AC SUBQ (D C) Carvedilol (COREG) 25 MG C BK DIN PO Gabapentin (NEURONTIN) 100 MG Q8HR PO Oxycodone/Acetaminophen (PERCOCET 5/325MG TAB) 2 TAB Q4H PRN PRN PO Ferric Sodium Gluconate Complex (FERRLECIT) 125 MG DAILY IV (DC) Sodium Chloride (SODIUM CHLORIDE 0.9%) 100 ML Folic Acid (FOLIC ACID) 2 MG DAILY PO Multivitamins (TAB-A-MOHAN) 1 TAB DAILY PO Furosemide (LASIX 20MG INJ) 20 MG BLOOD-DOSE BET WEEN IV (CKD) Sodium Chloride (SODIUM CHLORIDE) 10 ML ASDIR IV Pantoprazole Sodium (PROTONIX) 40 MG Q12HR IV Polyethylene Glycol (MIRALAX) 17 GM DAILY PO Sennosides (Senna Lax 8.6 MG TABLET) 8.6 MG MADALYN Y PO Sodium Chloride (SODIUM CHLORIDE) 10 ML ASDIR NV N IV Amitriptyline HCl (ELAVIL) 25 MG BEDTIME PO Zinc Oxide (ZINC OXIDE 30 GM OINTMENT) 1 APPLIC DAILY TOPICAL Sterile Water (WATER FOR IRRIGATION) DRESSING CH GELACIO ASDIR PRN IRR Insulin Human Lispro (HUMALOG) 0 AC HS SUBQ Dextrose/Water (DEXTROSE 10% IN WATER) 125 ML DIR PRN IV (CKD) Dextrose/Water (DEXTROSE 10% IN WATER) 250 ML DIR PRN IV (CKD) Glucagon (GLUCAGON) 1 MG ASDIR PRN IM Lidocaine (LIDODERM) 1 PATCH DAILY TOPICAL Acetaminophen (TYLENOL) 650 MG Q6H PRN PRN PO Bisacodyl (DULCOLAX) 10 MG DAILY PRN PRN RECTAL Docusate Sodium (COLACE) 100 MG Q12H PRN PRN PO Hydralazine HCl (APRESOLINE) 10 MG Q6H PRN PRN I V Ondansetron HCl (ZOFRAN) 4 MG Q6H PRN PRN IV Physical Exam General appearance: alert, awake Diagnosis, Assessment Plan Hospital course to date: Laboratory Tests: 09/16 09/16 09/16 09/16 1549 [id number] Chemistry POC Glucose (70 - 110 MG/DL) 62 L 60 L 148 H 19 5 H 09/16 09/15 6291 1937 Chemistry Sodium (134 - 147 mEq/L) 135 Potassium (3.4 - 5.0 mEq/L) 4.5 Chloride (100 - 108 mEq/L) 108 Carbon Dioxide (21 - 33 mEq/l) 20 L Anion Gap (0 - 20) 11 BUN (7 - 18 mg/dL) 60 H Creatinine (0.6 - 1.3 mg/dL) 2.7 H Glomerular Filtr Rate (90 - 95) 26.5 L Glucose (70 - 110 mg/dL) 175 H POC Glucose (70 - 110 MG/DL) 124 H Calcium (8.0 - 10.5 mg/dL) 7.5 L Phosphorus (2.5 - 4.9 MG/DL) 4.6 Magnesium (1.80 - 2.40 mg/dL) 1.93 Hematology WBC (4.5 - 11.0 x10 3/uL) 9.5 RBC (4.00 - 5.60 x10 6/uL) 2.70 L Hgb (12.5 - 16.9 g/dL) 7.6 L Hct (37.5 - 50.7 %) 23.7 L MCV (81.0 - 99.0 fL) 87.8 MCH (27.0 - 33.0 pg) 28.1 MCHC (33.0 - 37.0 g/dL) 32.1 L RDW (11.5 - 14.5 %) 14.6 H Plt Count (150 - 400 x10 3/uL) 360 MPV (7.0 - 9.0 fL) 9.6 H Neut % (Auto) (56.0 - 77.0 %) 73.4 Lymph % (Auto) (14.0 - 32.0 %) 18.6 Boundary % (Auto) (4.8 - 9.0 %) 6.7 Eos % (Auto) (0.3 - 3.7 %) 0.2 L Baso % (Auto) (0.0 - 2.0 %) 0.1 Neut # (Auto) (2.0 - 7.6 x10 3/uL) 6.99 Lymph # (Auto) (1.0 - 3.8 x10 3/uL) 1.77 Boundary # (Auto) (0.1 - 0.8 x10 3/uL) 0.64 Eos # (Auto) (0.0 - 0.2 x10 3/uL) 0.02 Baso # (Auto) (0.0 - 0.2 x10 3/uL) 0.01 Abs Immat Gran (auto) (0.00 - 0.03 x10 3/uL) 0. 10 H Add Manual Diff NO Immature Gran % (0.0 - 2.0 %) 1.0 Nucleated RBC % (0 - 0 %) 0.0 Nucleated RBCs # (Man) (0.0 - 0.1 x10 3/uL) 0.0 0 Laboratory Tests: 09/15 09/15 09/15 09/15 1640 1304 1154 0519 Chemistry POC Glucose (70 - 110 MG/DL) 137 H 126 H 309 H Urines Urine Color (YEL/STRAW) YELLOW Urine Appearance (CLEAR) SL CLOUDY Urine pH (5.0 - 7.0) 5.0 Ur Specific [place] (1.005 - 1.030) 1.013 Urine Protein (NEGATIVE) 2+ H Urine Glucose (UA) (NEGATIVE) 2+ H Urine Ketones (NEGATIVE) NEGATIVE Urine Blood (NEGATIVE) 2+ H Urine Nitrite (NEGATIVE) NEGATIVE Urine Bilirubin (NEGATIVE) NEGATIVE Urine Urobilinogen (0.2 - 1.0 mg/dL) 0.2 Ur Leukocyte Esterase (NEGATIVE) TRACE H Urine RBC (0 - 3 RBC/HPF) 21-50 Urine WBC (0 - 3 WBC/HPF) 4-9 H Ur Squamous Epith Cells (NONE SEEN /HPF) 0-5 Ur Transition Epith Cell (NONE SEEN /HPF) TRACE Urine Bacteria (NONE SEEN /HPF) TRACE Granular Casts (NONE /LPF) 3-5 Urine Mucus (NONE SEEN /LPF) TRACE Ur Random Creatinine (mg/dL) 52.5 U Random Total Protein (mg/dL) 283 09/15 09/14 0515 1931 Chemistry Sodium (134 - 147 mEq/L) 132 L Potassium (3.4 - 5.0 mEq/L) 4.7 Chloride (100 - 108 mEq/L) 105 Carbon Dioxide (21 - 33 mEq/l) 17 L Anion Gap (0 - 20) 15 BUN (7 - 18 mg/dL) 38 H Creatinine (0.6 - 1.3 mg/dL) 2.9 H Glomerular Filtr Rate (90 - 95) 24.3 L Glucose (70 - 110 mg/dL) 312 H POC Glucose (70 - 110 MG/DL) 193 H Calcium (8.0 - 10.5 mg/dL) 7.2 L Phosphorus (2.5 - 4.9 MG/DL) 5.7 H Magnesium (1.80 - 2.40 mg/dL) 1.96 Total Creatine Kinase (46 - 171 Units/L) 26 L Albumin (3.4 - 5.0 g/dL) 1.50 L Prealbumin (16.0 - 40.0 mg/dL) 8.0 L Hematology WBC (4.5 - 11.0 x10 3/uL) 8.7 RBC (4.00 - 5.60 x10 6/uL) 2.88 L Hgb (12.5 - 16.9 g/dL) 8.2 L Hct (37.5 - 50.7 %) 26.5 L MCV (81.0 - 99.0 fL) 92.0 MCH (27.0 - 33.0 pg) 28.5 MCHC (33.0 - 37.0 g/dL) 30.9 L RDW (11.5 - 14.5 %) 14.3 Plt Count (150 - 400 x10 3/uL) 341 MPV (7.0 - 9.0 fL) 9.1 H Neut % (Auto) (56.0 - 77.0 %) 84.9 H Lymph % (Auto) (14.0 - 32.0 %) 11.3 L Boundary % (Auto) (4.8 - 9.0 %) 3.2 L Eos % (Auto) (0.3 - 3.7 %) 0.0 L Baso % (Auto) (0.0 - 2.0 %) 0.1 Neut # (Auto) (2.0 - 7.6 x10 3/uL) 7.35 Lymph # (Auto) (1.0 - 3.8 x10 3/uL) 0.98 L Boundary # (Auto) (0.1 - 0.8 x10 3/uL) 0.28 Eos # (Auto) (0.0 - 0.2 x10 3/uL) 0.00 Baso # (Auto) (0.0 - 0.2 x10 3/uL) 0.01 Abs Immat Gran (auto) (0.00 - 0.03 x10 3/uL) 0. 04 H Add Manual Diff NO Immature Gran % (0.0 - 2.0 %) 0.5 Nucleated RBC % (0 - 0 %) 0.0 Nucleated RBCs # (Man) (0.0 - 0.1 x10 3/uL) 0.0 0 Microbiology: Date/Time Procedure - Status Source Growth 09/15 514 MRSA DNA Surveillance Screen - COMP NASAL Laboratory Tests: 09/14 09/14 09/14 09/14 09/13 1130 0736 0538 0528 1937 Chemistry Sodium (134 - 147 mEq/L) 132 L Potassium (3.4 - 5.0 mEq/L) 4.4 Chloride (100 - 108 mEq/L) 104 Carbon Dioxide (21 - 33 mEq/l) 19 L Anion Gap (0 - 20) 14 BUN (7 - 18 mg/dL) 38 H Creatinine (0.6 - 1.3 mg/dL) 2.8 H Glomerular Filtr Rate (90 - 95) 25.4 L Glucose (70 - 110 mg/dL) 325 H POC Glucose (70 - 110 MG/DL) 137 H 290 H 334 H 248 H Calcium (8.0 - 10.5 mg/dL) 7.5 L Hematology WBC (4.5 - 11.0 x10 3/uL) 9.5 RBC (4.00 - 5.60 x10 6/uL) 2.83 L Hgb (12.5 - 16.9 g/dL) 8.0 L Hct (37.5 - 50.7 %) 25.3 L MCV (81.0 - 99.0 fL) 89.4 MCH (27.0 - 33.0 pg) 28.3 MCHC (33.0 - 37.0 g/dL) 31.6 L RDW (11.5 - 14.5 %) 14.0 Plt Count (150 - 400 x10 3/uL) 322 MPV (7.0 - 9.0 fL) 9.3 H Neut % (Auto) (56.0 - 77.0 %) 80.2 H Lymph % (Auto) (14.0 - 32.0 %) 13.9 L Boundary % (Auto) (4.8 - 9.0 %) 5.1 Eos % (Auto) (0.3 - 3.7 %) 0.0 L Baso % (Auto) (0.0 - 2.0 %) 0.1 Neut # (Auto) (2.0 - 7.6 x10 3/uL) 7.58 Lymph # (Auto) (1.0 - 3.8 x10 3/uL) 1.31 Boundary # (Auto) (0.1 - 0.8 x10 3/uL) 0.48 Eos # (Auto) (0.0 - 0.2 x10 3/uL) 0.00 Baso # (Auto) (0.0 - 0.2 x10 3/uL) 0.01 Abs Immat Gran (auto) (0.00 - 0.03 0.07 H x10 3/uL) Add Manual Diff NO Immature Gran % (0.0 - 2.0 %) 0.7 Nucleated RBC % (0 - 0 %) 0.0 Nucleated RBCs # (Man) (0.0 - 0.1 0.00 x10 3/uL) 09/13 1629 Chemistry POC Glucose (70 - 110 MG/DL) 130 H Laboratory Tests: 09/13 09/13 09/13 09/12 1107 0568 0212 2016 Chemistry Sodium (134 - 147 mEq/L) 133 L Potassium (3.4 - 5.0 mEq/L) 4.6 Chloride (100 - 108 mEq/L) 107 Carbon Dioxide (21 - 33 mEq/l) 19 L Anion Gap (0 - 20) 12 BUN (7 - 18 mg/dL) 28 H Creatinine (0.6 - 1.3 mg/dL) 2.7 H Glomerular Filtr Rate (90 - 95) 26.5 L Glucose (70 - 110 mg/dL) 241 H POC Glucose (70 - 110 MG/DL) 307 H 258 H 223 H Calcium (8.0 - 10.5 mg/dL) 7.8 L Phosphorus (2.5 - 4.9 MG/DL) 4.7 Magnesium (1.80 - 2.40 mg/dL) 1.92 Hematology WBC (4.5 - 11.0 x10 3/uL) 9.8 RBC (4.00 - 5.60 x10 6/uL) 2.90 L Hgb (12.5 - 16.9 g/dL) 8.2 L Hct (37.5 - 50.7 %) 25.4 L MCV (81.0 - 99.0 fL) 87.6 MCH (27.0 - 33.0 pg) 28.3 MCHC (33.0 - 37.0 g/dL) 32.3 L RDW (11.5 - 14.5 %) 13.7 Plt Count (150 - 400 x10 3/uL) 288 MPV (7.0 - 9.0 fL) 10.0 H Neut % (Auto) (56.0 - 77.0 %) 85.3 H Lymph % (Auto) (14.0 - 32.0 %) 10.4 L Boundary % (Auto) (4.8 - 9.0 %) 3.5 L Eos % (Auto) (0.3 - 3.7 %) 0.0 L Baso % (Auto) (0.0 - 2.0 %) 0.1 Neut # (Auto) (2.0 - 7.6 x10 3/uL) 8.34 H Lymph # (Auto) (1.0 - 3.8 x10 3/uL) 1.02 Boundary # (Auto) (0.1 - 0.8 x10 3/uL) 0.34 Eos # (Auto) (0.0 - 0.2 x10 3/uL) 0.00 Baso # (Auto) (0.0 - 0.2 x10 3/uL) 0.01 Abs Immat Gran (auto) (0.00 - 0.03 x10 3/uL) 0. 07 H Add Manual Diff NO Immature Gran % (0.0 - 2.0 %) 0.7 Nucleated RBC % (0 - 0 %) 0.0 Nucleated RBCs # (Man) (0.0 - 0.1 x10 3/uL) 0.0 0 Microbiology: Date/Time Procedure - Status Source Growth 09/13 9875 MRSA DNA Surveillance Screen - RECD NASAL Laboratory Tests: 09/12 09/12 09/12 09/12 1606 1115 1105 0604 Chemistry POC Glucose (70 - 110 MG/DL) 150 H 68 L 170 H B-Natriuretic Peptide (0 - 100 PG/ML) 297.0 H Hematology Eos Smear Total Cells NONE SEEN 09/12 09/11 09/11 0420 2130 1933 Chemistry Sodium (134 - 147 mEq/L) 134 Potassium (3.4 - 5.0 mEq/L) 4.2 Chloride (100 - 108 mEq/L) 106 Carbon Dioxide (21 - 33 mEq/l) 20 L Anion Gap (0 - 20) 12 BUN (7 - 18 mg/dL) 31 H Creatinine (0.6 - 1.3 mg/dL) 2.4 H Glomerular Filtr Rate (90 - 95) 30.5 L Glucose (70 - 110 mg/dL) 167 H POC Glucose (70 - 110 MG/DL) 150 H Calcium (8.0 - 10.5 mg/dL) 8.2 Phosphorus (2.5 - 4.9 MG/DL) 4.4 Magnesium (1.80 - 2.40 mg/dL) 1.86 Hematology WBC (4.5 - 11.0 x10 3/uL) 8.8 RBC (4.00 - 5.60 x10 6/uL) 2.73 L Hgb (12.5 - 16.9 g/dL) 7.7 L Hct (37.5 - 50.7 %) 23.7 L MCV (81.0 - 99.0 fL) 86.8 MCH (27.0 - 33.0 pg) 28.2 MCHC (33.0 - 37.0 g/dL) 32.5 L RDW (11.5 - 14.5 %) 13.8 Plt Count (150 - 400 x10 3/uL) 248 MPV (7.0 - 9.0 fL) 9.7 H Neut % (Auto) (56.0 - 77.0 %) 72.3 Lymph % (Auto) (14.0 - 32.0 %) 15.0 Boundary % (Auto) (4.8 - 9.0 %) 7.9 Eos % (Auto) (0.3 - 3.7 %) 3.8 H Baso % (Auto) (0.0 - 2.0 %) 0.3 Neut # (Auto) (2.0 - 7.6 x10 3/uL) 6.34 Lymph # (Auto) (1.0 - 3.8 x10 3/uL) 1.31 Boundary # (Auto) (0.1 - 0.8 x10 3/uL) 0.69 Eos # (Auto) (0.0 - 0.2 x10 3/uL) 0.33 H Baso # (Auto) (0.0 - 0.2 x10 3/uL) 0.03 Abs Immat Gran (auto) (0.00 - 0.03 x10 3/uL) 0. 06 H Add Manual Diff NO Immature Gran % (0.0 - 2.0 %) 0.7 Nucleated RBC % (0 - 0 %) 0.0 Nucleated RBCs # (Man) (0.0 - 0.1 x10 3/uL) 0.0 0 Toxicology Random Vancomycin (mcg/mL) 16.7 Laboratory Tests: 09/11 09/11 09/11 09/11 09/11 1532 1445 1114 0541 0445 Chemistry Sodium (134 - 147 mEq/L) 134 Potassium (3.4 - 5.0 mEq/L) 4.3 Chloride (100 - 108 mEq/L) 105 Carbon Dioxide (21 - 33 mEq/l) 22 Anion Gap (0 - 20) 12 BUN (7 - 18 mg/dL) 26 H Creatinine (0.6 - 1.3 mg/dL) 2.0 H Glomerular Filtr Rate (90 - 95) 38.0 L Glucose (70 - 110 mg/dL) 109 POC Glucose (70 - 110 MG/DL) 93 109 127 H Calcium (8.0 - 10.5 mg/dL) 8.3 Phosphorus (2.5 - 4.9 MG/DL) 4.7 Magnesium (1.80 - 2.40 mg/dL) 1.90 Hematology WBC (4.5 - 11.0 x10 3/uL) 7.9 RBC (4.00 - 5.60 x10 6/uL) 2.94 L Hgb (12.5 - 16.9 g/dL) 8.3 L Hct (37.5 - 50.7 %) 25.8 L MCV (81.0 - 99.0 fL) 87.8 MCH (27.0 - 33.0 pg) 28.2 MCHC (33.0 - 37.0 g/dL) 32.2 L RDW (11.5 - 14.5 %) 13.7 Plt Count (150 - 400 x10 3/uL) 269 MPV (7.0 - 9.0 fL) 9.8 H Neut % (Auto) (56.0 - 77.0 %) 67.9 Lymph % (Auto) (14.0 - 32.0 %) 16.1 Boundary % (Auto) (4.8 - 9.0 %) 9.1 H Eos % (Auto) (0.3 - 3.7 %) 5.6 H Baso % (Auto) (0.0 - 2.0 %) 0.5 Neut # (Auto) (2.0 - 7.6 x10 3/uL) 5.35 Lymph # (Auto) (1.0 - 3.8 x10 3/uL) 1.27 Boundary # (Auto) (0.1 - 0.8 x10 3/uL) 0.72 Eos # (Auto) (0.0 - 0.2 x10 3/uL) 0.44 H Baso # (Auto) (0.0 - 0.2 x10 3/uL) 0.04 Abs Immat Gran (auto) (0.00 - 0.03 0.06 H x10 3/uL) Add Manual Diff NO Immature Gran % (0.0 - 2.0 %) 0.8 Nucleated RBC % (0 - 0 %) 0.0 Nucleated RBCs # (Man) (0.0 - 0.1 0.00 x10 3/uL) Toxicology Random Vancomycin (mcg/mL) 18.3 09/10 1851 Chemistry POC Glucose (70 - 110 MG/DL) 97 Laboratory Tests: 09/10 09/10 09/10 09/10 09/10 1715 1625 1430 1007 0545 Chemistry Sodium (134 - 147 mEq/L) 135 Potassium (3.4 - 5.0 mEq/L) 4.2 Chloride (100 - 108 mEq/L) 107 Carbon Dioxide (21 - 33 mEq/l) 21 Anion Gap (0 - 20) 11 BUN (7 - 18 mg/dL) 25 H Creatinine (0.6 - 1.3 mg/dL) 1.9 H Glomerular Filtr Rate (90 - 95) 40.4 L Glucose (70 - 110 mg/dL) 156 H POC Glucose (70 - 110 MG/DL) 75 58 L 213 H Calcium (8.0 - 10.5 mg/dL) 8.3 Phosphorus (2.5 - 4.9 MG/DL) 4.6 Magnesium (1.80 - 2.40 mg/dL) 1.89 Hematology WBC (4.5 - 11.0 x10 3/uL) 8.6 RBC (4.00 - 5.60 x10 6/uL) 3.08 L Hgb (12.5 - 16.9 g/dL) 8.6 L Hct (37.5 - 50.7 %) 26.7 L MCV (81.0 - 99.0 fL) 86.7 MCH (27.0 - 33.0 pg) 27.9 MCHC (33.0 - 37.0 g/dL) 32.2 L RDW (11.5 - 14.5 %) 13.8 Plt Count (150 - 400 x10 3/uL) 265 MPV (7.0 - 9.0 fL) 9.6 H Neut % (Auto) (56.0 - 77.0 %) 69.4 Lymph % (Auto) (14.0 - 32.0 %) 15.5 Boundary % (Auto) (4.8 - 9.0 %) 8.5 Eos % (Auto) (0.3 - 3.7 %) 5.5 H Baso % (Auto) (0.0 - 2.0 %) 0.4 Neut # (Auto) (2.0 - 7.6 x10 3/uL) 5.94 Lymph # (Auto) (1.0 - 3.8 x10 3/uL) 1.33 Boundary # (Auto) (0.1 - 0.8 x10 3/uL) 0.73 Eos # (Auto) (0.0 - 0.2 x10 3/uL) 0.47 H Baso # (Auto) (0.0 - 0.2 x10 3/uL) 0.03 Abs Immat Gran (auto) (0.00 - 0.03 0.06 H x10 3/uL) Add Manual Diff NO Immature Gran % (0.0 - 2.0 %) 0.7 Nucleated RBC % (0 - 0 %) 0.0 Nucleated RBCs # (Man) (0.0 - 0.1 0.00 x10 3/uL) Toxicology Random Vancomycin (mcg/mL) 15.7 09/10 09/09 0541 1911 Chemistry POC Glucose (70 - 110 MG/DL) 154 H 102 Recent Impressions: ULTRASOUND - US RETROPERITONEAL COM 09/10 1311 Report Impression - Status: SIGNED Entered: 09/10/2022 1503 IMPRESSION: No acute findings. Impression By: Hakeem Jacobo Laboratory Tests: 09/09 09/09 09/09 09/09 09/09 1606 1526 1403 1049 0524 Chemistry POC Glucose (70 - 110 MG/DL) 109 30 L 90 128 H Toxicology Random Vancomycin (mcg/mL) 15.4 09/09 09/08 09/08 0500 1955 1828 Chemistry Sodium (134 - 147 mEq/L) 136 Potassium (3.4 - 5.0 mEq/L) 4.2 Chloride (100 - 108 mEq/L) 107 Carbon Dioxide (21 - 33 mEq/l) 22 Anion Gap (0 - 20) 11 BUN (7 - 18 mg/dL) 23 H Creatinine (0.6 - 1.3 mg/dL) 1.5 H Glomerular Filtr Rate (90 - 95) 53.6 L Glucose (70 - 110 mg/dL) 125 H POC Glucose (70 - 110 MG/DL) 106 Calcium (8.0 - 10.5 mg/dL) 8.2 Phosphorus (2.5 - 4.9 MG/DL) 4.0 Magnesium (1.80 - 2.40 mg/dL) 1.89 Iron (35 - 150 mcg/dL) 10 L TIBC (260 - 445 mcg/dL) 138 L % Saturation (14 - 34 %) 7.2 L Unsat Iron Binding (mcg/dL) 128 Ferritin (23.9 - 336.2 ng/mL) 700.5 H Lactate Dehydrogenase (87 - 241 IUnits/L) 193 Hematology WBC (4.5 - 11.0 x10 3/uL) 9.2 RBC (4.00 - 5.60 x10 6/uL) 3.01 L Hgb (12.5 - 16.9 g/dL) 8.5 L Hct (37.5 - 50.7 %) 25.9 L MCV (81.0 - 99.0 fL) 86.0 MCH (27.0 - 33.0 pg) 28.2 MCHC (33.0 - 37.0 g/dL) 32.8 L RDW (11.5 - 14.5 %) 13.8 Plt Count (150 - 400 x10 3/uL) 263 MPV (7.0 - 9.0 fL) 9.7 H Neut % (Auto) (56.0 - 77.0 %) 69.1 Lymph % (Auto) (14.0 - 32.0 %) 16.1 Boundary % (Auto) (4.8 - 9.0 %) 9.2 H Eos % (Auto) (0.3 - 3.7 %) 4.7 H Baso % (Auto) (0.0 - 2.0 %) 0.4 Neut # (Auto) (2.0 - 7.6 x10 3/uL) 6.38 Lymph # (Auto) (1.0 - 3.8 x10 3/uL) 1.49 Boundary # (Auto) (0.1 - 0.8 x10 3/uL) 0.85 H Eos # (Auto) (0.0 - 0.2 x10 3/uL) 0.43 H Baso # (Auto) (0.0 - 0.2 x10 3/uL) 0.04 Abs Immat Gran (auto) (0.00 - 0.03 x10 3/uL) 0. 05 H Add Manual Diff NO Immature Gran % (0.0 - 2.0 %) 0.5 Nucleated RBC % (0 - 0 %) 0.0 Nucleated RBCs # (Man) (0.0 - 0.1 x10 3/uL) 0.0 0 Retic Count (auto) (0.3 - 2.3 %) 1.3 Laboratory Tests: 09/08 09/08 09/08 09/08 09/08 1611 1318 1045 1033 0616 Chemistry POC Glucose (70 - 110 MG/DL) 120 H 101 99 101 Toxicology Random Vancomycin (mcg/mL) 15.8 09/08 09/07 09/07 0615 2238 2110 Chemistry Sodium (134 - 147 mEq/L) 135 Potassium (3.4 - 5.0 mEq/L) 4.6 Chloride (100 - 108 mEq/L) 107 Carbon Dioxide (21 - 33 mEq/l) 22 Anion Gap (0 - 20) 10 BUN (7 - 18 mg/dL) 22 H Creatinine (0.6 - 1.3 mg/dL) 1.4 H Glomerular Filtr Rate (90 - 95) 58.3 L Glucose (70 - 110 mg/dL) 100 POC Glucose (70 - 110 MG/DL) 135 H 127 H Calcium (8.0 - 10.5 mg/dL) 8.1 Magnesium (1.80 - 2.40 mg/dL) 1.58 L Total Creatine Kinase (46 - 171 Units/L) 22 L Albumin (3.4 - 5.0 g/dL) 1.30 L Prealbumin (16.0 - 40.0 mg/dL) < 5.0 L Hematology WBC (4.5 - 11.0 x10 3/uL) 9.1 RBC (4.00 - 5.60 x10 6/uL) 3.05 L Hgb (12.5 - 16.9 g/dL) 8.5 L Hct (37.5 - 50.7 %) 26.2 L MCV (81.0 - 99.0 fL) 85.9 MCH (27.0 - 33.0 pg) 27.9 MCHC (33.0 - 37.0 g/dL) 32.4 L RDW (11.5 - 14.5 %) 13.5 Plt Count (150 - 400 x10 3/uL) 231 MPV (7.0 - 9.0 fL) 9.6 H Neut % (Auto) (56.0 - 77.0 %) 73.3 Lymph % (Auto) (14.0 - 32.0 %) 13.7 L Boundary % (Auto) (4.8 - 9.0 %) 7.2 Eos % (Auto) (0.3 - 3.7 %) 4.8 H Baso % (Auto) (0.0 - 2.0 %) 0.3 Neut # (Auto) (2.0 - 7.6 x10 3/uL) 6.64 Lymph # (Auto) (1.0 - 3.8 x10 3/uL) 1.24 Boundary # (Auto) (0.1 - 0.8 x10 3/uL) 0.65 Eos # (Auto) (0.0 - 0.2 x10 3/uL) 0.43 H Baso # (Auto) (0.0 - 0.2 x10 3/uL) 0.03 Abs Immat Gran (auto) (0.00 - 0.03 x10 3/uL) 0. 06 H Add Manual Diff NO Immature Gran % (0.0 - 2.0 %) 0.7 Nucleated RBC % (0 - 0 %) 0.0 Nucleated RBCs # (Man) (0.0 - 0.1 x10 3/uL) 0.0 0 Laboratory Tests: 09/07 09/07 09/07 09/07 09/07 1554 1137 1127 0618 0510 Chemistry Creatinine (0.6 - 1.3 mg/dL) 1.4 H POC Glucose (70 - 110 MG/DL) 112 H 51 L 42 L 13 5 H Hematology Hgb (12.5 - 16.9 g/dL) 8.4 L Hct (37.5 - 50.7 %) 26.2 L Toxicology Random Vancomycin (mcg/mL) 14.7 09/06 09/06 2226 2108 Chemistry POC Glucose (70 - 110 MG/DL) 192 H 211 H Laboratory Tests: 09/06 09/06 09/06 09/06 09/06 1553 1547 1051 0538 0536 Chemistry Creatinine (0.6 - 1.3 mg/dL) 1.4 H POC Glucose (70 - 110 MG/DL) 119 H 92 124 H Hematology Hgb (12.5 - 16.9 g/dL) 8.6 L Hct (37.5 - 50.7 %) 26.1 L Toxicology Vancomycin Trough (10.0 - 20.0 mcg/mL) 18.9 09/05 1910 Chemistry POC Glucose (70 - 110 MG/DL) 117 H Laboratory Tests: 09/05 09/05 09/04 09/04 09/04 1149 0615 2042 1630 1557 Chemistry Sodium (134 - 147 mEq/L) 134 Potassium (3.4 - 5.0 mEq/L) 5.0 Chloride (100 - 108 mEq/L) 109 H Carbon Dioxide (21 - 33 mEq/l) 21 Anion Gap (0 - 20) 9 BUN (7 - 18 mg/dL) 24 H Creatinine (0.6 - 1.3 mg/dL) 1.3 Glomerular Filtr Rate (90 - 95) 63.7 L Glucose (70 - 110 mg/dL) 75 POC Glucose (70 - 110 MG/DL) 74 103 128 H Calcium (8.0 - 10.5 mg/dL) 7.9 L Hematology Hgb (12.5 - 16.9 g/dL) 7.1 L Hct (37.5 - 50.7 %) 22.7 L Toxicology Vancomycin Trough (10.0 - 20.0 mcg/mL) 12.8 Microbiology: Date/Time Procedure - Status Source Growth 09/04 1739 Occult Blood - COMP STOOL Recent Impressions: RADIOLOGY - XR ABDOMEN 1V (KUB) 09/04 1648 Report Impression - Status: SIGNED Entered: 09/04/2022 1757 IMPRESSION: Benign appearance of the abdomen. Impression By: [email or web address] - Hakeem Soto ULTRASOUND - DUP VEIN UNI/LTD 09/05 1146 Report Impression - Status: SIGNED Entered: 09/05/2022 1333 IMPRESSION: 1. No evidence of deep vein thrombosis. 2. Complex heterogeneous hypoechoic fluid collec tion in the left calf region measuring 8.4 x 2.8 x 2.5 cm; there is no internal vascularity or peripheral hyperemia. May represe nt a hematoma. Impression By: [email or web address] - Mert Ga M.D. RADIOLOGY - XR CHEST 1 V 09/05 1432 Report Impression - Status: SIGNED Entered: 09/05/2022 1515 IMPRESSION: Minimal bibasilar pulmonary opacities Impression By: [email or web address] - Hakeem Perez Laboratory Tests: 09/04 09/04 09/04 09/04 09/04 1630 1557 1100 1031 0816 Chemistry POC Glucose (70 - 110 MG/DL) 128 H 107 99 Hematology Hgb (12.5 - 16.9 g/dL) 7.7 L Hct (37.5 - 50.7 %) 23.7 L Toxicology Vancomycin Trough (10.0 - 20.0 mcg/mL) 12.8 09/04 09/04 09/03 09/03 0721 0540 1944 1836 Chemistry POC Glucose (70 - 110 MG/DL) 87 124 H Hematology Hgb (12.5 - 16.9 g/dL) 6.8 L Hct (37.5 - 50.7 %) 21.2 L Toxicology Vancomycin Peak (30 - 40 MCG/ML) 27.4 L Microbiology: Date/Time Procedure - Status Source Growth 09/04 1037 Occult Blood - COLB STOOL 1.Diabetes mellitus type 2 uncontrolled complica tions. 2. 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 4. Sepsis 5. Prostate abscess. 6. Anemia Blood sugar 175-148 mg/dL.H/H 8.11/17. Adjust insulin dose. PT and OT. Electronically Signed by Braxton Chapin MD on at 1724 RPT #:[id number] END OF REPORT 2022-09-16 15:04:00-00:00 [facility] Rehab Team Conference REPORT#:[id number] REPORT STATUS: Signed DATE:09/16/22 TIME: 1504 PATIENT: KARMA ROWLAND UNIT #: [id number] ROOM/BED: [place] [id number] : 61 AGE: 56 SEX: M ATTEND: Fredy Vences MD ADM AUTHOR: Mj Vences MD * ALL edits or amendments must be made on the el ectronic/computer document * Rehabilitation Team Conference Weekly Team Conference Team conf information: Date of conference: 09/16/22 Conference type: Interim Conference scribe: Columba Drew PTA INTERDISCIPLINARY TEAM MEETING PARTICIPANTS: TITLE NAME MD SELENA Butts, SELENA PT Anthony Ro, PT OT Williams Mckeon OT CM/TERESA Sinclair CM ST NO ATTENDEE [facility] KEVIN Casiano Staff (8) NO ATTENDEE Staff (9) NO ATTENDEE OTHER NAME [employer] 1 [employer] DIET[facility] 2 FUNCTIONAL CHANGE: TYPE ADMISSION TOTAL INTERIM TOTAL CHANGE Self care 20 29 9 Transfer 17 29 12 Mobility 8 8 0 Wheelchair distance: 200 feet mod i Mobility description: BOWEL AND BLADDER STATUS: Bowel continence admission rating: Bladder continence admission rating: Not applica ble Bowel and bladder team conference update: CONT O F BOWEL, CONT OF BLADDER INTERDISCIPLINARY TEAM UPDATES: LYDIA team conference update: A/O X4, MOD TO MAX TRANSFERS WITH 1-2 PERSON. PAIN NOTED 8/10 PERCOCET ADMIN, H ELPS DECREASE PAIN. ABRASION ON TOP OF LEFT FOOT IS OPEN TO AIR. SWELLING NOTED TO LEFT FOOT, PT IS CONTINUING TO ELEVATE FOOT. BLOOD SUGARS ARE WNL. PLEASE MAKE ADJUSTMENT TO INSULINS. DAILY WT 184.3, INCREASE OF WT GAIN FROM ADM ISSION 154.4. ABNORMAL LABS 09/15: ALBUMIN 1.50L, BUN 38H, CREAT 2.9H, HGB 8.2. LABS TO BE DRAWN THIS AM. PT team conference update: PATIENT IS PROGRESSIN G WITH PT, REQUIRES MOD I FOR BED MOB, TRANSFERS WITH CGA LEVEL, WC MOB AMADO 2 00 FEET . STANDS WITH RW AND MODA. WILL NEED WC, FAMILY PLANS ON BUILDING A R AMP. ORDERED ABX TIL 09/24, PROTEIN CHEMIST CONCERNED ON KIDNEY FUNCTION . OT team conference update: Pt progressing toward goals, limited by R BKA, endurance, adls deficits. Ad ls: Mod I to Max assist, Xfers: set up/ supervision Recc: HHOT, Dme: Drop arm bsc, sliding board ST team conference update: CM or SW team conference upd ate: PATIENT IS FROM HOME WITH A SUPPORTIVE SPOUSE. PLAN TO DC TO HOME WITH NEEDED DME AND HOME HEAL TH. PROVIDED FAMILY WITH INFORMATION ON SOCIAL SECURITY DISABILITY. Other discipline update 1: P.O INTAKE: 75-100% O F RENAL 3 CARB DIET. Other discipline update 2: Other discipline update 3: REHAB DC GOALS: Patient's identified discharge goal: "I WOULD LI KE TO GO HOME WITH MY FAMILY" PT: PATIENT WILL LIKE TO GET STRONGER TO DC HOME AND GO BACK TO WORK ONCE HE RECEIVED HIS PROSTHETIC OT: "get stronger" Eating discharge goal: Independent (6) Shower/bathe self discharge goal: Independent ( 6) Upper body dressing discharge goal: Independent (6) Lower body dressing discharge goal: Independent (6) Chair/bed to chair transfer discharge goal: Set up/clean-up only (5) Transfer on/off toilet or commode discharge goa l: Supervise/touch asst (4) Walking 50 feet with two turns discharge goal: Med cond/safety concern Walking 150 feet discharge goal: Med cond/safet y concern Four steps discharge goal: Med cond/safety conc mell Twelve steps discharge goal: Med cond/safety co ncern [place] 150 feet discharge goal: Independent ( 6) Goal 1 - Bowel function: PATIENT WILL REMAIN CON TINENT OF BOWEL Goal 2 - Bladder function: PATIENT WILL REGAIN B LADDER CONTROL Nursing goal 3: PATIENT WILL BE FREE FROM FALLS DURING STAY Nursing goal 4: PATIENT WILL MAINTAIN SKIN INTEG RITY Nursing goal 5: DISCHARGE PLANNING: Barriers to discharge: Fall risk, Endurance, [place] n, Caregiver, NWB RLE, DIFFICULTY WITH TRANSFERS Strategies for D/C barriers: Fall recovery train ing, Evaluate pain control, Scheduled rest breaks, LE EX, WC MOB, TRANSFER T RAINING, CAREGIVER TRAINING Estimated length of stay in days: 17 Anticipated discharge date: 09/24/22 Discharge date adjustment comment: PATIENT ON IV ANTIBIOTICS UNTIL 09/24/22 Identified financial and/or community resource n eeds: Family/Caregiver training days: PATIENT AND FAMI LY WILL BE EDUCATED ON USE OF GAIT BELT TO LOWER PT TO THE FLOOR IN THE EVENT OF LOSS OF BALANCE TO PREVENT FALL OR INJURY. 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 IRF cont stay criteria See my note at 1504 RPT #:[id number] END OF REPORT 2022-09-16 14:29:00-00:00 [facility] Progress Note REPORT#:[id number] REPORT STATUS: Signed DATE:09/16/22 TIME: 9 PATIENT: KARMA ROWLAND UNIT #: [id number] ROOM/BED: [place] [id number] : 63 AGE: 56 SEX: M ATTEND: Mj Vences MD ADM AUTHOR: Kassie Avitia MD * ALL edits or amendments must be made on the [employer]/computer document * Subjective HPI: Patient is a 56-year-old male with history of di abetes mellitus type 2 and hypertension who was initially admitted for alte red mental status and right- sided foot infection. 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 The p atient is anemic with current Hgb 7.1. He has received a total of 3 un its pRBCs during this hospitalization. KUB on 09/04 was negative for acute GI process. T he patient denies overt GIB, dark tarry stools, nausea, a bdominal pain, or vomiting. He has never had EGD or colonoscopy. 09/06: No complaints today. Hemoglobin stable. No overt GI bleed. Plan for colonoscopy and endoscopy on Thursday 09/07: No complaints today. No overt GI bleed. Pl anning for colonoscopy and endoscopy tomorrow 09/08: EGD mild gastritis. colonoscopy rectal eugenia yp s/p snare. No other abnormalities 09/09: doing well. Seen at the gym. No bleeding. 09/10: Doing well. No bleeding. tolerating diet. Movig bowels 09/11: doing well. States his leg swelling is bet ter. Tolerating diet. having normal BM 09/12: dooing well. doing work-out at the gym. To lerating diet. Normal BMs. Stable H/H 09/14-Sitting up in wheelchair, family at bedside . Denies n/v/abd pain/GIB 09/15: Doing well. H/H stable. No melena or BRBPR . No nausea or vomiting. Appetite is well 09/16: doing well. no complaints. eating well Objective Physical Exam HEENT: atraumatic, normocephalic Neck: full range of motion, non-tender Respiratory: symmetric expansion, no distress Abdomen: non-tender, normal bowel sounds, soft, no distention, no guarding Extremities: right BKA Considered stroke alert: no Skin: dry Diagnosis, Assessment Plan Free Text A P: 1. Positive FOBT-and anemia: The patient denies overt GIB, dark tarry stools, nausea, abdominal pain, or vomiting. He is not o n anticoagulation therapy. -Continue PPI. The patient has never had EGD or colonoscopy prior to this admission s/p EGD and colonoscopy. EGD showed mild gastrit is. Colonoscopy showed rectal polyp that was resected by snare. no evidence of bleeding. Pathology of polyp came back as tubular adenoma. recommend repeatin g colonoscopy in 5 years Anemia likely secondary to chronic kidney diseas e. Can consider video capsule endoscopy as outpt if evidence of dropping H/H H/H remains stable Will follow along Consultants: cardiology, endocrinology, hospital ist, infectious disease, podiatry at 1429 RPT #:[id number] END OF REPORT 2022-09-16 11:19:00-00:00 [facility] ([facility]) Infectious Dis. Progress Note REPORT#:[id number] REPORT STATUS: Signed DATE:09/16/22 TIME: 1119 PATIENT: KARMA ROWLAND UNIT #: [id number] ROOM/BED: [place] [address] : 63 AGE: 56 SEX: M ATTEND: Fredy Vences MD ADM AUTHOR: Linda Anderson MD * ALL edits or amendments must be made on the [employer]/computer document * Subjective HPI: PT is a 56yr old male with h istory of diabetes mellitus type 2, hypertension who was admitted with altered mental status and righ t-sided foot infection. According to him, he noticed a blister on his right foot around 3 days prior to presentation. His foot got progressively more sw ollen and erythema extended proximally to his lateral foot and ankle. CT abd omen and pelvis with contrast is concerning for possible prostate abscess. CT of lower extremity without contrast shows extensive sof t tissue edema with mottled gas in the subcutaneous and intramuscular compartments of the foot, comp atible with gas-forming infection. Patient's blood cultures have come ba ck positive for MRSA in 2 out of 2 sets. PT has had persistent (+)Ve cx for MR FREITAS 08/18- 08/22. He underwent a debridement of his foot on 08/19 and cx g rew MRSA. PT was started on Vancomycin and clindamycin on 08/18. His MRI showed a prosta te abscess. 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 Pt underwent a transrectal aspiration and unroofing of prostate abscess 08/26 and cx grew Citrobacter, Enterococcus, MRSA. 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 JIMENA done 09/02. Pt was tr ansferred to Rehab on 09/02. Patient reports: No: cough, diarrhea, fever, headache, nausea, sh ortness of breath, vomiting. Portions of this section janice kendall scribed by Jill Quintero on 09/16/22 at 1119 Objective General Antibiotic start date: Antibiotic: vancomycin Start Date:09/03-09/12 Antibiotic: daptomycin Start Date:08/28-09/03, restarted on 09/12 Antibiotic: cefepime Start Date:09/01-09/12 Antibiotic: merrem Start Date:08/27-09/01, 09/12- Physical Exam Head/Eyes: atraumatic, clear cornea, EOMI, felisa l conjunctiva/sclera, normal eyelids/periorb, normocephalic, PERRL ENT: moist mucosal membranes, normal dentition Neck: full range of motion Cardiovascular: normal heart sounds, regular rat e rhythm Respiratory: clear to auscultation, aerating wel l Abdomen: non-tender, normal bowel sounds, soft Extremities: moves all, right BKA Left foot woun d +dressing in place 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 X 3 Considered stroke alert: no Skin: dry, intact Portions of this section janice kendall scribed by Jill Quintero on 09/16/22 at 1119 Treatment Prophylaxis Treatment Prophylaxis Lines: PICC Portions of this section janice kendall scribed by Jill Quintero on 09/16/22 at 1119 Diagnosis, Assessment Plan Free Text A P: *MRSA bacteremia -Initial blood cultures from 08/18/2022 positive for MRSA in 2 out of 2 sets. -Repeat blood cultures 08/21/2022 are already po sitive for MRSA in 2 out of 2 sets, suggesting persistent high-grade bacteremi a. -TTE 08/18/2022 negative for any obvious vegetat ions. -08/28 neg -JIMENA 09/02 neg *Prostatic abscess -s/p transrectal aspiration and unroofing on 08/26 -cx MRSA, citrobacter (r-cefazolin) Enterococcus raffinosus (S-amp,pcn, vancomycin), bacteriodes *ERIKA -nephrology following; worsening *Hyponatremia *Diabetic neuropathy *Diabetes mellitus type 2 *Hypertension *anemia 09/08 -cont on Cefepime and vancomycin til 5/3 for kellen atment of Prostate abscess -follow esr and crp -EGD today 09/09 -on cefepime and vancomycin til 5/3 for treatmen t of prostate abscess 09/10 on cefepime and vancomycin til 5/3 for treatment of prostate abscess check esr and crp in am 09/11 on cefepime and vancomycin til 5/3 for t reatment of prostate abscess; if pt is discharge before 09/24 can change to oral abx 09/12 on cefepime and vancomycin til 5/3 for treatment of prostate abscess; will change to Merrem 500mg Iv Q12hrs and Daptomycin as creat is worsening 09/15 on Merrem and Daptomycin til 5/3 creat still elevated: nephrology following 09/16 On Merrem and Daptomycin til 5/3 monitor creat. ; improving; nephrology following follow esr and crp Consultants: cardiology, endocrinology, hospital ist, infectious disease, podiatry Portions of this section wer e scribed by Jill Quintero on 09/16/22 at 1915 at 8505 RPT #:[id number] END OF REPORT 2022-09-16 09:52:00-00:[address] [facility] ([facility]) Cardiology Progress Note REPORT#:[id number] REPORT STATUS: Signed DATE:09/16/22 TIME: 951 PATIENT: KARMA ROWLAND UNIT #: [id number] ROOM/BED: [place] [address] : 63 AGE: 56 SEX: M ATTEND: Fredy Vences MD ADM AUTHOR: Rohit Benitez CLAY MILLER * ALL edits or amendments must be made on the [employer]/computer document * Rohit Benitez 09/16/22 0952: Subjective Chief complaint: weakness Free Text Subj Notes Free Text Subj Notes: Patient seen and evaluated in the gym. Working w ith physical therapy, no new cardiac complaint. Objective General VS/I O: 24 hour I O ending at 0700: 09/16 0700 09/15 1900 Intake Total 200 1060 Output Total 1600 1400 Balance -1400 -340 Intake, Oral 200 1060 Number 0 0 Incontinent Voids Number Voids 0 0 Output, Urine 1600 1400 Vital Signs: Date Time Temp Pulse Resp B/P B/P Pulse O2 O2 F low FiO2 Mean Ox Delivery Rate 09/16 0722 97.3 77 18 159/79 105.3 96 Room air 09/16 0004 97.5 78 16 147/78 101.2 95 09/15 1939 97.5 77 18 167/84 111.5 96 09/15 1651 97.3 77 18 163/75 104.3 95 PATIENT WEIGHT: Weight (lb): 165 Weight (oz): 5.55 Weight (kg): 75.000 Medications: Active Meds + DC'd Last 24 Hrs Hydralazine HCl (APRESOLINE) 25 MG Q8HR PO Daptomycin (CUBICIN 500MG) 500 MG Q48H IV Sodium Chloride (SODIUM CHLORIDE 0.9%) 50 ML Prednisone (predniSONE) 80 MG ONCE ONE PO (DC) Insulin Human Lispro (HUMALOG) 10 UNIT AC SUBQ Heparin Sodium (HEPARIN 5000 UNITS/ML) 5,000 UNI T Q12HR SUBQ Insulin Glargine (Semglee) 20 UNIT BEDTIME SUBQ Meropenem (MEROPENEM) 500 MG Q8H IV Sterile Water (WATER FOR INJECTION) 10 ML Insulin Glargine (Semglee) 14 UNIT BEDTIME SUBQ (DC) Insulin Human Lispro (HUMALOG) 7 UNIT AC SUBQ (D C) Carvedilol (COREG) 25 MG C BK DIN PO Daptomycin (CUBICIN 500MG) 500 MG Q24H IV (DC) Sodium Chloride (SODIUM CHLORIDE 0.9%) 50 ML Meropenem (MEROPENEM) 500 MG Q12H IV (DC) Sterile Water (WATER FOR INJECTION) 10 ML Gabapentin (NEURONTIN) 100 MG Q8HR PO Oxycodone/Acetaminophen (PERCOCET 5/325MG TAB) 2 TAB Q4H PRN PRN PO Ferric Sodium Gluconate Complex (FERRLECIT) 125 MG DAILY IV Sodium Chloride (SODIUM CHLORIDE 0.9%) 100 ML Folic Acid (FOLIC ACID) 2 MG DAILY PO Multivitamins (TAB-A-MOHAN) 1 TAB DAILY PO Furosemide (LASIX 20MG INJ) 20 MG BLOOD-DOSE BET WEEN IV (CKD) Sodium Chloride (SODIUM CHLORIDE) 10 ML ASDIR IV Pantoprazole Sodium (PROTONIX) 40 MG Q12HR IV Polyethylene Glycol (MIRALAX) 17 GM DAILY PO Sennosides (Senna Lax 8.6 MG TABLET) 8.6 MG MADALYN Y PO Sodium Chloride (SODIUM CHLORIDE) 10 ML ASDIR NV N IV Amitriptyline HCl (ELAVIL) 25 MG BEDTIME PO Zinc Oxide (ZINC OXIDE 30 GM OINTMENT) 1 APPLIC DAILY TOPICAL Sterile Water (WATER FOR IRRIGATION) DRESSING CH GELACIO ASDIR PRN IRR Insulin Human Lispro (HUMALOG) 0 AC HS SUBQ Dextrose/Water (DEXTROSE 10% IN WATER) 125 ML DIR PRN IV (CKD) Dextrose/Water (DEXTROSE 10% IN WATER) 250 ML DIR PRN IV (CKD) Glucagon (GLUCAGON) 1 MG ASDIR PRN IM Lidocaine (LIDODERM) 1 PATCH DAILY TOPICAL Heparin Sodium (HEPARIN 5000 UNITS/ML) 5,000 UNI T Q8HR SUBQ (DC) Acetaminophen (TYLENOL) 650 MG Q6H PRN PRN PO Bisacodyl (DULCOLAX) 10 MG DAILY PRN PRN RECTAL Docusate Sodium (COLACE) 100 MG Q12H PRN PRN PO Hydralazine HCl (APRESOLINE) 10 MG Q6H PRN PRN I V Ondansetron HCl (ZOFRAN) 4 MG Q6H PRN PRN IV Physical Exam General appearance: alert, awake, oriented Neck: no bruit/NL carotids, no JVD Cardiovascular: CV assessment: regular rate and rhythm, no ecto py, no gallop Respiratory: clear to auscultation, no distress Abdomen: soft, non-tender Lower extremity: LE assessment: edema, normal temperature 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 X 3 Considered stroke alert: no Wound/incision: Location: right bka Psychiatry: normal affect, normal judgment/insig ht, normal mood Results Findings/Data: Laboratory Tests 09/16 09/16 09/15 09/15 09/15 0553 0455 1937 1640 1154 Chemistry Sodium (134 - 147 mEq/L) 135 Potassium (3.4 - 5.0 mEq/L) 4.5 Chloride (100 - 108 mEq/L) 108 Carbon Dioxide (21 - 33 mEq/l) 20 L Anion Gap (0 - 20) 11 BUN (7 - 18 mg/dL) 60 H Creatinine (0.6 - 1.3 mg/dL) 2.7 H Glomerular Filtr Rate (90 - 95) 26.5 L Glucose (70 - 110 mg/dL) 175 H POC Glucose (70 - 110 MG/DL) 195 H 124 H 137 H 126 H Calcium (8.0 - 10.5 mg/dL) 7.5 L Phosphorus (2.5 - 4.9 MG/DL) 4.6 Magnesium (1.80 - 2.40 mg/dL) 1.93 Laboratory Tests 09/16 0455 Hematology WBC (4.5 - 11.0 x10 3/uL) 9.5 RBC (4.00 - 5.60 x10 6/uL) 2.70 L Hgb (12.5 - 16.9 g/dL) 7.6 L Hct (37.5 - 50.7 %) 23.7 L MCV (81.0 - 99.0 fL) 87.8 MCH (27.0 - 33.0 pg) 28.1 MCHC (33.0 - 37.0 g/dL) 32.1 L RDW (11.5 - 14.5 %) 14.6 H Plt Count (150 - 400 x10 3/uL) 360 MPV (7.0 - 9.0 fL) 9.6 H Neut % (Auto) (56.0 - 77.0 %) 73.4 Lymph % (Auto) (14.0 - 32.0 %) 18.6 Boundary % (Auto) (4.8 - 9.0 %) 6.7 Eos % (Auto) (0.3 - 3.7 %) 0.2 L Baso % (Auto) (0.0 - 2.0 %) 0.1 Neut # (Auto) (2.0 - 7.6 x10 3/uL) 6.99 Lymph # (Auto) (1.0 - 3.8 x10 3/uL) 1.77 Boundary # (Auto) (0.1 - 0.8 x10 3/uL) 0.64 Eos # (Auto) (0.0 - 0.2 x10 3/uL) 0.02 Baso # (Auto) (0.0 - 0.2 x10 3/uL) 0.01 Abs Immat Gran (auto) (0.00 - 0.03 x10 3/uL) 0. 10 H Add Manual Diff NO Immature Gran % (0.0 - 2.0 %) 1.0 Nucleated RBC % (0 - 0 %) 0.0 Nucleated RBCs # (Man) (0.0 - 0.1 x10 3/uL) 0.0 0 Laboratory Tests 09/15 1304 Urines Urine Color (YEL/STRAW) YELLOW Urine Appearance (CLEAR) SL CLOUDY Urine pH (5.0 - 7.0) 5.0 Ur Specific [place] (1.005 - 1.030) 1.013 Urine Protein (NEGATIVE) 2+ H Urine Glucose (UA) (NEGATIVE) 2+ H Urine Ketones (NEGATIVE) NEGATIVE Urine Blood (NEGATIVE) 2+ H Urine Nitrite (NEGATIVE) NEGATIVE Urine Bilirubin (NEGATIVE) NEGATIVE Urine Urobilinogen (0.2 - 1.0 mg/dL) 0.2 Ur Leukocyte Esterase (NEGATIVE) TRACE H Urine RBC (0 - 3 RBC/HPF) 21-50 Urine WBC (0 - 3 WBC/HPF) 4-9 H Ur Squamous Epith Cells (NONE SEEN /HPF) 0-5 Ur Transition Epith Cell (NONE SEEN /HPF) TRACE Urine Bacteria (NONE SEEN /HPF) TRACE Granular Casts (NONE /LPF) 3-5 Urine Mucus (NONE SEEN /LPF) TRACE Ur Random Creatinine (mg/dL) 52.5 U Random Total Protein (mg/dL) 283 Laboratory Tests 09/16 0455 Chemistry Magnesium (1.80 - 2.40 mg/dL) 1.93 Diagnosis, Assessment Plan Consultants: cardiology, endocrinology, hospital ist, infectious disease, podiatry Free Text DxA P Notes Free Text DxA P Notes: Impression: 1. Debility 2. Infected right foot status post BKA 3. Bacteremia 4. Diabetes 5. Hypertension 6. Anemia 7. Acute Diastolic CHF 07/2022: Echocardiogram with normal LVEF, grade 1 diastolic dysfunction, mildly dilated LA, and no significant valvular abnormal ities Recommendation: Patient initially presented with DKA and sepsis. Diagnosed with right foot infection, underwent I D, now status post BKA. P athailey had persistent bacteremia with MRSA, underwent JIMENA with negativ e findings of endocarditis. Patient now transferred to [facility] for physical therapy. Known cardiac history of hypertension and hyperlipide renetta. Vital signs stable. Echocardiogram with normal LVEF, grade 1 diastolic dysfunction, mildly dila carlos LA, and no significant valvular abnormalities. Continue to monitor bloo d pressure trend. Continue wound care and IV antibiotic therapy. Continue P T/OT. Supportive care. 09/04: Patient complaining of shortness of breath, abdominal distention and lower extremity edema. Renal function and electrolytes stable. Will give one-time dose of IV Lasix 40 mg. Blood pressure stable. P ending abdominal x-ray. Monitor intake and output. Check BMP in the morn ing. Supportive care. Plan of care discussed with patient, RN and Dr. Parham. 09/05: Patient responded well to IV Lasix , good urine output and improvement in shortness of breath. Chest x-ray ordered . Currently on Lasix 20 mg p.o. daily. Continue monitor renal function and electrolyte s. Pending lower extremity Doppler for lower extremity edema. Continue PT/O T. Supportive care. Plan of care discussed with patient, RN and Dr. Parham. 09/08: Blood pressure has been elevated, started on Coreg 3.125 mg twice daily. Continue monitor blood pressure trend and adjust medication as needed. Still having left lower extremity edema, venous Dopple r negative for DVT. continue gentle diuresis with Lasix 20 mg p.o. daily. Rec ommend Oralia wrap. Patient remains anemic, plan for EGD/colonoscopy today. Supportive care. Plan of care discussed with patient, family, RN and Dr. Parham . 09/09: Patient doing well status post EGD /colonoscopy, negative findings for GI bleed. Blood pressure improving, increased on Co reg to 12.5 mg twice daily. Elevated creatinine noted, nephrology following. No new cardiac complaint. Continue wound care. Continue PT/OT. Supportive care. Plan of care discussed with patient, RN and Dr. Parham. 09/10: Blood pressure remained stable on current regimen of Coreg. Patient continue to have left lower extremity edema. Cur rently on Lasix 20 mg daily. Creatinine 1.9 today, continue to monito r. Patient's albumin level was 1.3, it is possible that patient's lower extremity edema could be related to hypoalbuminemia leading to third spacing. Contin ue PT/OT. Supportive care. Plan of care discussed with patient, RN and Dr. Parham. 09/11: Patient doing well from cardiac standpoint . Blood pressure well controlled. Improvement in lower extremity edema with elevating leg while in bed. Creatinine 2.0 today. Denies shortness of b reath. Will hold diuretic for now and monitor renal function. Supportive care. Plan of care discussed with patient, RN and Dr. Parham. 09/12: Creatinine remains elevated at 2.4 today, antibiotic regimen also being adjusted. Patient still with lower extremity rose ma and rales on physical examination. Will check chest x-ray and limited echocardiogram for further evaluation. Check BNP. Continue hold diuretic fo r now. Supportive care. Plan of care discussed with patient, RN and Dr. Parham . 09/15: Repeat echocardiogram showed LVEF of 55 to 60%, no regional wall motion abnormalities, left ventricu lar diastolic function parameters are indeterminate, mildly dilated LA, and no pericardial effusion. BNP elevated 297. Continue to hold diuretic due to Elevate d creatinine, nephrology following and may consider renal biopsy. Continue to monitor fluid volume s tatus. Overall improvement in lower extremity with Oralia wrap. Continue physical therapy. Supportive care. Plan of care discussed with patient, RN and Dr. Parham. 09/16: Blood pressure slightly elevated, started on hydralazine 25 mg every 8 hours. Continue carvedilol monitor blood pressur e trend. Cr. 2.7 today, continue monitor. Tolerating physical therapy. E uvolemic by physical examination. Supportive care. Plan of care discu ssed with patient, RN and Dr. Parham. Gianni Parham 09/18/22 0859: Diagnosis, Assessment Plan Additional comments: Agree with above assessment and plan as document ed by nurse practitioner, continue current management, will follow. Electronically Signed by Rohit Benitez NP on 0 09/16/22 at 1617 at 0902 RPT #:[id number] END OF REPORT 2022-09-16 08:17:00-00:00 [facility] ([facility]) Nephrology Progress Note REPORT#:[id number] REPORT STATUS: Signed DATE:09/16/22 TIME: 08 PATIENT: KARMA ROWLAND UNIT #: [id number] ROOM/BED: [place] [address] : 63 AGE: 56 SEX: M ATTEND: Fredy Vences MD ADM AUTHOR: Barrera Ramírez MD * ALL edits or amendments must be made on the [employer]/computer document * Subjective Chief complaint: Infected foot HPI: Patient seen and evaluated on 09/09/2022, note [facility], records reviewed and orders placed on 09/08/2022, 56-year-old male with history of diabetes mellitus type 2, hypertension and per ipheral vascular disease who was initially admitted to acute care with altered mental status and rig ht foot infection/gangrene, 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 Patient had persistent anemia requiring blood transfusion. H is fecal occult blood was positive and his creatinine was 1.2 and increase d to 1.4 today, laboratories today showed hemoglobin 8.5, platelet 231, blood count 9.1, sodium 135, potassium 4.6, CO2 22, BUN 22, creatinin e 1.4. Renal consult was requested for evaluation management of pako vated BUN and creatinine and if his decreased GFR is contributing to his anemia. Patient reports: Yes: complaints. Comments: Patient seen and evaluated, HPI no change from initial, scrotal and LE swelling Review of Systems Constitutional: Reports: fatigue. Denies: chills, fever. Skin: Reports: swelling. Denies: abrasion, bruising. Allergy/Immun: Denies: hives, itching. Eyes: Denies: redness, discharge. ENT: Denies: ear drainage, ear ringing. Respiratory: Denies: hemoptysis, SOB. Cardiovascular: Denies: chest pain. Objective General VS/I O: Vital Signs: Date Time Temp Pulse Resp B/P B/P Pulse O2 O2 F low FiO2 Mean Ox Delivery Rate 09/16 0722 36.3 77 18 159/79 105.3 96 Room air 09/16 0004 36.4 78 16 147/78 101.2 95 09/15 1939 36.4 77 18 167/84 111.5 96 09/15 1651 36.3 77 18 163/75 104.3 95 24 hour I O ending at 0700: 09/16 0700 09/15 1900 Intake Total 200 1060 Output Total 1600 1400 Balance -1400 -340 Intake, Oral 200 1060 Number 0 0 Incontinent Voids Number Voids 0 0 Output, Urine 1600 1400 PATIENT WEIGHT: Weight (lb): 165 Weight (oz): 5.55 Weight (kg): 75.000 Medications Active Meds + DC'd Last 24 Hrs Daptomycin (CUBICIN 500MG) 500 MG Q48H IV Sodium Chloride (SODIUM CHLORIDE 0.9%) 50 ML Insulin Human Lispro (HUMALOG) 10 UNIT AC SUBQ Heparin Sodium (HEPARIN 5000 UNITS/ML) 5,000 UNI T Q12HR SUBQ Insulin Glargine (Semglee) 20 UNIT BEDTIME SUBQ Meropenem (MEROPENEM) 500 MG Q8H IV Sterile Water (WATER FOR INJECTION) 10 ML Insulin Glargine (Semglee) 14 UNIT BEDTIME SUBQ (DC) Insulin Human Lispro (HUMALOG) 7 UNIT AC SUBQ (D C) Carvedilol (COREG) 25 MG C BK DIN PO Daptomycin (CUBICIN 500MG) 500 MG Q24H IV (DC) Sodium Chloride (SODIUM CHLORIDE 0.9%) 50 ML Meropenem (MEROPENEM) 500 MG Q12H IV (DC) Sterile Water (WATER FOR INJECTION) 10 ML Gabapentin (NEURONTIN) 100 MG Q8HR PO Oxycodone/Acetaminophen (PERCOCET 5/325MG TAB) 2 TAB Q4H PRN PRN PO Ferric Sodium Gluconate Complex (FERRLECIT) 125 MG DAILY IV Sodium Chloride (SODIUM CHLORIDE 0.9%) 100 ML Folic Acid (FOLIC ACID) 2 MG DAILY PO Multivitamins (TAB-A-MOHAN) 1 TAB DAILY PO Furosemide (LASIX 20MG INJ) 20 MG BLOOD-DOSE BET WEEN IV (CKD) Sodium Chloride (SODIUM CHLORIDE) 10 ML ASDIR IV Pantoprazole Sodium (PROTONIX) 40 MG Q12HR IV Polyethylene Glycol (MIRALAX) 17 GM DAILY PO Sennosides (Senna Lax 8.6 MG TABLET) 8.6 MG CODY LY PO Sodium Chloride (SODIUM CHLORIDE) 10 ML ASDIR NV N IV Amitriptyline HCl (ELAVIL) 25 MG BEDTIME PO Zinc Oxide (ZINC OXIDE 30 GM OINTMENT) 1 APPLIC DAILY TOPICAL Sterile Water (WATER FOR IRRIGATION) DRESSING CH GELAICO ASDIR PRN IRR Insulin Human Lispro (HUMALOG) 0 AC HS SUBQ Dextrose/Water (DEXTROSE 10% IN WATER) 125 ML DIR PRN IV (CKD) Dextrose/Water (DEXTROSE 10% IN WATER) 250 ML DIR PRN IV (CKD) Glucagon (GLUCAGON) 1 MG ASDIR PRN IM Lidocaine (LIDODERM) 1 PATCH DAILY TOPICAL Heparin Sodium (HEPARIN 5000 UNITS/ML) 5,000 UNI T Q8HR SUBQ (DC) Acetaminophen (TYLENOL) 650 MG Q6H PRN PRN PO Bisacodyl (DULCOLAX) 10 MG DAILY PRN PRN RECTAL Docusate Sodium (COLACE) 100 MG Q12H PRN PRN PO Hydralazine HCl (APRESOLINE) 10 MG Q6H PRN PRN I V Ondansetron HCl (ZOFRAN) 4 MG Q6H PRN PRN IV Physical Exam General appearance: alert, no acute distress Head/eyes: atraumatic, normocephalic ENT: normal nose Neck: non-tender, supple/no meningismus Cardiovascular: normal heart sounds, no rub Respiratory: aerating well, symmetric expansion Abdomen: non-tender, soft Genitourinary: no flank pain Extremities: non-tender, no edema Musculoskeletal: no CVA tenderness, no tendernes s 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, 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 Considered stroke alert: no Skin: dry, intact Results Findings/Data: Laboratory Tests 09/16 09/16 09/15 09/15 09/15 0553 0455 1937 1640 1154 Chemistry Sodium (134 - 147 mEq/L) 135 Potassium (3.4 - 5.0 mEq/L) 4.5 Chloride (100 - 108 mEq/L) 108 Carbon Dioxide (21 - 33 mEq/l) 20 L Anion Gap (0 - 20) 11 BUN (7 - 18 mg/dL) 60 H Creatinine (0.6 - 1.3 mg/dL) 2.7 H Glomerular Filtr Rate (90 - 95) 26.5 L Glucose (70 - 110 mg/dL) 175 H POC Glucose (70 - 110 MG/DL) 195 H 124 H 137 H 126 H Calcium (8.0 - 10.5 mg/dL) 7.5 L Phosphorus (2.5 - 4.9 MG/DL) 4.6 Magnesium (1.80 - 2.40 mg/dL) 1.93 09/15 09/15 09/14 09/14 09/14 0519 0515 1931 1543 1130 Chemistry Sodium (134 - 147 mEq/L) 132 L Potassium (3.4 - 5.0 mEq/L) 4.7 Chloride (100 - 108 mEq/L) 105 Carbon Dioxide (21 - 33 mEq/l) 17 L Anion Gap (0 - 20) 15 BUN (7 - 18 mg/dL) 38 H Creatinine (0.6 - 1.3 mg/dL) 2.9 H Glomerular Filtr Rate (90 - 95) 24.3 L Glucose (70 - 110 mg/dL) 312 H POC Glucose (70 - 110 MG/DL) 309 H 193 H 60 L 137 H Calcium (8.0 - 10.5 mg/dL) 7.2 L Phosphorus (2.5 - 4.9 MG/DL) 5.7 H Magnesium (1.80 - 2.40 mg/dL) 1.96 Total Creatine Kinase (46 - 171 Units/L) 26 L Albumin (3.4 - 5.0 g/dL) 1.50 L Prealbumin (16.0 - 40.0 mg/dL) 8.0 L 09/14 09/14 09/14 09/13 09/13 0736 0526 0525 1937 1629 Chemistry Sodium (134 - 147 mEq/L) 132 L Potassium (3.4 - 5.0 mEq/L) 4.4 Chloride (100 - 108 mEq/L) 104 Carbon Dioxide (21 - 33 mEq/l) 19 L Anion Gap (0 - 20) 14 BUN (7 - 18 mg/dL) 38 H Creatinine (0.6 - 1.3 mg/dL) 2.8 H Glomerular Filtr Rate (90 - 95) 25.4 L Glucose (70 - 110 mg/dL) 325 H POC Glucose (70 - 110 MG/DL) 290 H 334 H 248 H 130 H Calcium (8.0 - 10.5 mg/dL) 7.5 L 09/13 1105 Chemistry POC Glucose (70 - 110 MG/DL) 307 H Laboratory Tests 09/16 09/15 09/14 0455 0515 0550 Hematology WBC (4.5 - 11.0 x10 3/uL) 9.5 8.7 9.5 RBC (4.00 - 5.60 x10 6/uL) 2.70 L 2.88 L 2.83 L Hgb (12.5 - 16.9 g/dL) 7.6 L 8.2 L 8.0 L Hct (37.5 - 50.7 %) 23.7 L 26.5 L 25.3 L MCV (81.0 - 99.0 fL) 87.8 92.0 89.4 MCH (27.0 - 33.0 pg) 28.1 28.5 28.3 MCHC (33.0 - 37.0 g/dL) 32.1 L 30.9 L 31.6 L RDW (11.5 - 14.5 %) 14.6 H 14.3 14.0 Plt Count (150 - 400 x10 3/uL) 360 341 322 MPV (7.0 - 9.0 fL) 9.6 H 9.1 H 9.3 H Neut % (Auto) (56.0 - 77.0 %) 73.4 84.9 H 80.2 H Lymph % (Auto) (14.0 - 32.0 %) 18.6 11.3 L 13.9 L Boundary % (Auto) (4.8 - 9.0 %) 6.7 3.2 L 5.1 Eos % (Auto) (0.3 - 3.7 %) 0.2 L 0.0 L 0.0 L Baso % (Auto) (0.0 - 2.0 %) 0.1 0.1 0.1 Neut # (Auto) (2.0 - 7.6 x10 3/uL) 6.99 7.35 7. 58 Lymph # (Auto) (1.0 - 3.8 x10 3/uL) 1.77 0.98 L 1.31 Boundary # (Auto) (0.1 - 0.8 x10 3/uL) 0.64 0.28 0. 48 Eos # (Auto) (0.0 - 0.2 x10 3/uL) 0.02 0.00 0.0 0 Baso # (Auto) (0.0 - 0.2 x10 3/uL) 0.01 0.01 0. 01 Abs Immat Gran (auto) (0.00 - 0.03 x10 3/uL) 0. 10 H 0.04 H 0.07 H Add Manual Diff NO NO NO Immature Gran % (0.0 - 2.0 %) 1.0 0.5 0.7 Nucleated RBC % (0 - 0 %) 0.0 0.0 0.0 Nucleated RBCs # (Man) (0.0 - 0.1 x10 3/uL) 0.0 0 0.00 0.00 Laboratory Tests 09/15 1304 Urines Urine Color (YEL/STRAW) YELLOW Urine Appearance (CLEAR) SL CLOUDY Urine pH (5.0 - 7.0) 5.0 Ur Specific [place] (1.005 - 1.030) 1.013 Urine Protein (NEGATIVE) 2+ H Urine Glucose (UA) (NEGATIVE) 2+ H Urine Ketones (NEGATIVE) NEGATIVE Urine Blood (NEGATIVE) 2+ H Urine Nitrite (NEGATIVE) NEGATIVE Urine Bilirubin (NEGATIVE) NEGATIVE Urine Urobilinogen (0.2 - 1.0 mg/dL) 0.2 Ur Leukocyte Esterase (NEGATIVE) TRACE H Urine RBC (0 - 3 RBC/HPF) 21-50 Urine WBC (0 - 3 WBC/HPF) 4-9 H Ur Squamous Epith Cells (NONE SEEN /HPF) 0-5 Ur Transition Epith Cell (NONE SEEN /HPF) TRACE Urine Bacteria (NONE SEEN /HPF) TRACE Granular Casts (NONE /LPF) 3-5 Urine Mucus (NONE SEEN /LPF) TRACE Ur Random Creatinine (mg/dL) 52.5 U Random Total Protein (mg/dL) 283 Microbiology Date/Time Procedure - Status Source Growth 09/15 0515 MRSA DNA Surveillance Screen - COMP NASAL Laboratory Tests 09/16 09/16 09/15 09/15 09/15 0553 0455 1937 1640 1154 Chemistry Sodium (134 - 147 mEq/L) 135 Potassium (3.4 - 5.0 mEq/L) 4.5 Chloride (100 - 108 mEq/L) 108 Carbon Dioxide (21 - 33 mEq/l) 20 L Anion Gap (0 - 20) 11 BUN (7 - 18 mg/dL) 60 H Creatinine (0.6 - 1.3 mg/dL) 2.7 H Glomerular Filtr Rate (90 - 95) 26.5 L Glucose (70 - 110 mg/dL) 175 H POC Glucose (70 - 110 MG/DL) 195 H 124 H 137 H 126 H Calcium (8.0 - 10.5 mg/dL) 7.5 L Phosphorus (2.5 - 4.9 MG/DL) 4.6 Magnesium (1.80 - 2.40 mg/dL) 1.93 Laboratory Tests 09/16 0455 Hematology WBC (4.5 - 11.0 x10 3/uL) 9.5 RBC (4.00 - 5.60 x10 6/uL) 2.70 L Hgb (12.5 - 16.9 g/dL) 7.6 L Hct (37.5 - 50.7 %) 23.7 L MCV (81.0 - 99.0 fL) 87.8 MCH (27.0 - 33.0 pg) 28.1 MCHC (33.0 - 37.0 g/dL) 32.1 L RDW (11.5 - 14.5 %) 14.6 H Plt Count (150 - 400 x10 3/uL) 360 MPV (7.0 - 9.0 fL) 9.6 H Neut % (Auto) (56.0 - 77.0 %) 73.4 Lymph % (Auto) (14.0 - 32.0 %) 18.6 Boundary % (Auto) (4.8 - 9.0 %) 6.7 Eos % (Auto) (0.3 - 3.7 %) 0.2 L Baso % (Auto) (0.0 - 2.0 %) 0.1 Neut # (Auto) (2.0 - 7.6 x10 3/uL) 6.99 Lymph # (Auto) (1.0 - 3.8 x10 3/uL) 1.77 Boundary # (Auto) (0.1 - 0.8 x10 3/uL) 0.64 Eos # (Auto) (0.0 - 0.2 x10 3/uL) 0.02 Baso # (Auto) (0.0 - 0.2 x10 3/uL) 0.01 Abs Immat Gran (auto) (0.00 - 0.03 x10 3/uL) 0. 10 H Add Manual Diff NO Immature Gran % (0.0 - 2.0 %) 1.0 Nucleated RBC % (0 - 0 %) 0.0 Nucleated RBCs # (Man) (0.0 - 0.1 x10 3/uL) 0.0 0 Laboratory Tests 09/15 1304 Urines Urine Color (YEL/STRAW) YELLOW Urine Appearance (CLEAR) SL CLOUDY Urine pH (5.0 - 7.0) 5.0 Ur Specific [place] (1.005 - 1.030) 1.013 Urine Protein (NEGATIVE) 2+ H Urine Glucose (UA) (NEGATIVE) 2+ H Urine Ketones (NEGATIVE) NEGATIVE Urine Blood (NEGATIVE) 2+ H Urine Nitrite (NEGATIVE) NEGATIVE Urine Bilirubin (NEGATIVE) NEGATIVE Urine Urobilinogen (0.2 - 1.0 mg/dL) 0.2 Ur Leukocyte Esterase (NEGATIVE) TRACE H Urine RBC (0 - 3 RBC/HPF) 21-50 Urine WBC (0 - 3 WBC/HPF) 4-9 H Ur Squamous Epith Cells (NONE SEEN /HPF) 0-5 Ur Transition Epith Cell (NONE SEEN /HPF) TRACE Urine Bacteria (NONE SEEN /HPF) TRACE Granular Casts (NONE /LPF) 3-5 Urine Mucus (NONE SEEN /LPF) TRACE Ur Random Creatinine (mg/dL) 52.5 U Random Total Protein (mg/dL) 283 Diagnosis, Assessment Plan Free Text A P: Patient seen and evaluated, discussed with care team, images and laboratories reviewed. Diabetes mellitus: Insulin: Monitor bloo d sugar closely and adjust medications as needed, followed by endocrinology. Hypertension: Blood pressure is not well controlled, increase Coreg to 12.5 mg p.o. 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 We will check serum immu nofixation. Acute kidney injury: We will check renal bladder ultrasound, check postvoid residual, check urine protein creatinine ratio Hypomagnesemia: We will supplement 09/10/2022 laboratory this mo rning showed sodium 135, potassium 4.2, CO2 21, BUN 25, creatinine 1.9 continues to worsen, etiology unclear, however his development some eosinophili a not sure if he is developing AIN, suggest changing cefepime to a different class of antibiotic if p ossible, will check renal bladder ultrasound 09/11/2022 laboratory this mo rning showed sodium 134, potassium 4.3, CO2 22, BUN 26, creatinine 2 up from 1.9, hopefully creatini ne is plateauing, renal ultrasound negative. 09/12/2022 laboratory this mo rning showed sodium 134, potassium 4.2, CO2 20, BUN 31, creatinine 2.4 continues to worsen, discussed with ID, AIN is probably the etiology of the unexplained deterioration of his renal function, antibiotics to be adjusted by infectious disease, will give Solu-Medrol 125 mg IV daily for 3 days. Significant lower extremity edema, will st art Lasix 20 mg p.o. twice daily. 09.13.23: pt was seen and examined. Very thirsty. serum creatinine is worsening today. Vancomycin was stopped yesterday and Solu medrol was started. Mild hypovolemic hyponatremia. Will DC lasix and monitor his renal functions. BP is well controlled. 23: pt was seen and exa mined. Feels better but still thirsty. I stopped his lasix. will start NS at 75 c c for one Leter only. serum creatinine is improving. Received three doses of Solu Medrol a well. BP i s on the higher side, likely secondary to steroids. will monitor for now. mild hypovelmic hyponatremia. also could be secondary to hyperglycemia. 09/15/2022 we will give additional dose of Solu-M edrol 125 mg IV today, laboratory this morning show ed sodium 132, potassium 4.7, CO2 17, chloride 105, BUN 38, creatinine 2.9, glucose 312, hem oglobin 8.2, platelet 341, blood count 8.7, needs better blood sugar control, if creati nine does not start improving the next couple days will plan for kidney biopsy 09/16/2022 laboratory this mo rning showed sodium 135, potassium 4.5, CO2 20, BUN 60, creatinine 2.7, better down from 2.9, hemogl obin 7.6, platelet 360, blood count 9.5, will give prednisone 80 mg p.o. today , blood pressure is elevated, will add hydralazine 25 mg p .o. 3 times daily, scrotal and LE swelling will give Lasix 40 mg IV x 3 Consultants: cardiology, endocrinology, hospital ist, infectious disease, podiatry Electronically Signed by Barrera Ramírez MD on at 1046 RPT #:[id number] END OF REPORT 2022-09-16 07:51:00-00:00 [facility] Hospitalist Progress Note REPORT#:[id number] REPORT STATUS: Signed DATE:09/16/22 TIME: 750 PATIENT: KARMA ROWLAND UNIT #: [id number] ROOM/BED: [place] [address] : 63 AGE: 56 SEX: M ATTEND: Fredy Vences MD ADM AUTHOR: Wilbert Ramires MD * ALL edits or amendments must be made on the [employer]/computer document * Subjective Chief complaint: No acute complaints Review of Systems All systems rev neg: except as noted Objective General VS/I O: Vital Signs: Date Time Temp Pulse Resp B/P B/P Pulse O2 O2 F low FiO2 Mean Ox Delivery Rate 09/16 0722 97.3 77 18 159/79 105.3 96 Room air 09/16 0004 97.5 78 16 147/78 101.2 95 09/15 1939 97.5 77 18 167/84 111.5 96 09/15 1651 97.3 77 18 163/75 104.3 95 24 hour I O ending at 0700: 09/16 0700 09/15 1900 Intake Total 200 1060 Output Total 1600 1400 Balance -1400 -340 Intake, Oral 200 1060 Number 0 0 Incontinent Voids Number Voids 0 0 Output, Urine 1600 1400 PATIENT WEIGHT: Weight (lb): 165 Weight (oz): 5.55 Weight (kg): 75.000 Medications: Active Meds + DC'd Last 24 Hrs Daptomycin (CUBICIN 500MG) 500 MG Q48H IV Sodium Chloride (SODIUM CHLORIDE 0.9%) 50 ML Insulin Human Lispro (HUMALOG) 10 UNIT AC SUBQ Heparin Sodium (HEPARIN 5000 UNITS/ML) 5,000 UNI T Q12HR SUBQ Insulin Glargine (Semglee) 20 UNIT BEDTIME SUBQ Meropenem (MEROPENEM) 500 MG Q8H IV Sterile Water (WATER FOR INJECTION) 10 ML Insulin Glargine (Semglee) 14 UNIT BEDTIME SUBQ (DC) Insulin Human Lispro (HUMALOG) 7 UNIT AC SUBQ (D C) Carvedilol (COREG) 25 MG C BK DIN PO Daptomycin (CUBICIN 500MG) 500 MG Q24H IV (DC) Sodium Chloride (SODIUM CHLORIDE 0.9%) 50 ML Meropenem (MEROPENEM) 500 MG Q12H IV (DC) Sterile Water (WATER FOR INJECTION) 10 ML Gabapentin (NEURONTIN) 100 MG Q8HR PO Oxycodone/Acetaminophen (PERCOCET 5/325MG TAB) 2 TAB Q4H PRN PRN PO Ferric Sodium Gluconate Complex (FERRLECIT) 125 MG DAILY IV Sodium Chloride (SODIUM CHLORIDE 0.9%) 100 ML Folic Acid (FOLIC ACID) 2 MG DAILY PO Multivitamins (TAB-A-MOHAN) 1 TAB DAILY PO Furosemide (LASIX 20MG INJ) 20 MG BLOOD-DOSE BET WEEN IV (CKD) Sodium Chloride (SODIUM CHLORIDE) 10 ML ASDIR IV Pantoprazole Sodium (PROTONIX) 40 MG Q12HR IV Polyethylene Glycol (MIRALAX) 17 GM DAILY PO Sennosides (Senna Lax 8.6 MG TABLET) 8.6 MG MADALYN Y PO Sodium Chloride (SODIUM CHLORIDE) 10 ML ASDIR NV N IV Amitriptyline HCl (ELAVIL) 25 MG BEDTIME PO Zinc Oxide (ZINC OXIDE 30 GM OINTMENT) 1 APPLIC DAILY TOPICAL Sterile Water (WATER FOR IRRIGATION) DRESSING CH GELACIO ASDIR PRN IRR Insulin Human Lispro (HUMALOG) 0 AC HS SUBQ Dextrose/Water (DEXTROSE 10% IN WATER) 125 ML DIR PRN IV (CKD) Dextrose/Water (DEXTROSE 10% IN WATER) 250 ML DIR PRN IV (CKD) Glucagon (GLUCAGON) 1 MG ASDIR PRN IM Lidocaine (LIDODERM) 1 PATCH DAILY TOPICAL Heparin Sodium (HEPARIN 5000 UNITS/ML) 5,000 UNI T Q8HR SUBQ (DC) Acetaminophen (TYLENOL) 650 MG Q6H PRN PRN PO Bisacodyl (DULCOLAX) 10 MG DAILY PRN PRN RECTAL Docusate Sodium (COLACE) 100 MG Q12H PRN PRN PO Hydralazine HCl (APRESOLINE) 10 MG Q6H PRN PRN I V Ondansetron HCl (ZOFRAN) 4 MG Q6H PRN PRN IV Physical Exam General appearance: alert, awake, oriented Head/Eyes: atraumatic, normocephalic ENT: moist mucosal membranes Neck: no JVD Cardiovascular: normal heart sounds, regular rat e rhythm Respiratory: aerating well, clear to auscultatio n Abdomen: non-tender, normal bowel sounds Genitourinary: no bladder distention Extremities: moves all, normal capillary refill Musculoskeletal: normal inspection 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 X 3, 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 Considered stroke alert: no Skin: dry, intact Psychiatry: normal affect, normal judgment/insig ht Results Findings/Data: Laboratory Tests 09/16 09/15 09/15 09/15 0553 1937 1640 1154 Chemistry POC Glucose (70 - 110 MG/DL) 195 H 124 H 137 H 126 H Laboratory Tests 09/16 0455 Hematology WBC (4.5 - 11.0 x10 3/uL) 9.5 RBC (4.00 - 5.60 x10 6/uL) 2.70 L Hgb (12.5 - 16.9 g/dL) 7.6 L Hct (37.5 - 50.7 %) 23.7 L MCV (81.0 - 99.0 fL) 87.8 MCH (27.0 - 33.0 pg) 28.1 MCHC (33.0 - 37.0 g/dL) 32.1 L RDW (11.5 - 14.5 %) 14.6 H Plt Count (150 - 400 x10 3/uL) 360 MPV (7.0 - 9.0 fL) 9.6 H Neut % (Auto) (56.0 - 77.0 %) 73.4 Lymph % (Auto) (14.0 - 32.0 %) 18.6 Boundary % (Auto) (4.8 - 9.0 %) 6.7 Eos % (Auto) (0.3 - 3.7 %) 0.2 L Baso % (Auto) (0.0 - 2.0 %) 0.1 Neut # (Auto) (2.0 - 7.6 x10 3/uL) 6.99 Lymph # (Auto) (1.0 - 3.8 x10 3/uL) 1.77 Boundary # (Auto) (0.1 - 0.8 x10 3/uL) 0.64 Eos # (Auto) (0.0 - 0.2 x10 3/uL) 0.02 Baso # (Auto) (0.0 - 0.2 x10 3/uL) 0.01 Abs Immat Gran (auto) (0.00 - 0.03 x10 3/uL) 0 .10 H Add Manual Diff NO Immature Gran % (0.0 - 2.0 %) 1.0 Nucleated RBC % (0 - 0 %) 0.0 Nucleated RBCs # (Man) (0.0 - 0.1 x10 3/uL) 0.0 0 Laboratory Tests 09/15 1304 Urines Urine Color (YEL/STRAW) YELLOW Urine Appearance (CLEAR) SL CLOUDY Urine pH (5.0 - 7.0) 5.0 Ur Specific [place] (1.005 - 1.030) 1.013 Urine Protein (NEGATIVE) 2+ H Urine Glucose (UA) (NEGATIVE) 2+ H Urine Ketones (NEGATIVE) NEGATIVE Urine Blood (NEGATIVE) 2+ H Urine Nitrite (NEGATIVE) NEGATIVE Urine Bilirubin (NEGATIVE) NEGATIVE Urine Urobilinogen (0.2 - 1.0 mg/dL) 0.2 Ur Leukocyte Esterase (NEGATIVE) TRACE H Urine RBC (0 - 3 RBC/HPF) 21-50 Urine WBC (0 - 3 WBC/HPF) 4-9 H Ur Squamous Epith Cells (NONE SEEN /HPF) 0-5 Ur Transition Epith Cell (NONE SEEN /HPF) TRACE Urine Bacteria (NONE SEEN /HPF) TRACE Granular Casts (NONE /LPF) 3-5 Urine Mucus (NONE SEEN /LPF) TRACE Ur Random Creatinine (mg/dL) 52.5 U Random Total Protein (mg/dL) 283 Diagnosis, Assessment Plan Consultants: cardiology, endocrinology, hospital ist, infectious disease, podiatry Free Text DxA P Notes Free text DxA P notes: Gangrene of right foot s/p Below- knee amputatio n Prostate abscess MRSA bacteremia Hx of Diabetes, Diabetic neuropathy HTN ERIKA PLANS: Continue with PT/OT per primary Wound care as directed Hepain PPX IV iron BP improving now with increased dose: Metoprolol to 25 mg BID BS better with insulin adjus tment. Likely due to steroids started by Nephrology for AIN pain control creatinine continuint to trend down Hgb trending down as well. no overt bleeding. co ntinue to monitor Electronically Signed by Wilbert Ramires MD on at 0538 RPT #:[id number] END OF REPORT 2022-09-16 07:30:00-00:00 [facility] ([facility] Rehab Progress Note REPORT#:[id number] REPORT STATUS: Signed DATE:09/16/22 TIME: 729 PATIENT: KARMA ROWLAND UNIT #: [id number] ROOM/BED: [place] [address] : 63 AGE: 56 SEX: M ATTEND: Fredy Vences MD ADM AUTHOR: Mj Vences MD * ALL edits or amendments must be made on the [employer]/computer document * Subjective Chief complaint: Rehab follow-up Patient feeling well working with therapy Making good progress Still has edema of BLE and scrotum Eating 75-100% at bedside + BM Denies MCBRIDE/N/V/D/CP 14 systems reviewed and neg. except that above. History of present illness: 56 yo HAM with long h/o DM, and HTN who was admitted for fever, flulike symptoms and altered mental status on 08/18. He was doing well until about 3 days prior to admission when he noted blister to have formed o n the dorsum of his foot. His foot started progressively getting more swollen and the blisters started enlarging and extending to his lateral f oot and ankle. He started feeling weak and nauseated. He was noted to have altered mentation and was brought to our ER. He was noted to be in DKA with Blood sugars grea ter than 600. He was seen by podiatry and surgery for BLE wounds and infectio n. He was treated in ICU for sepsis and DKA. He underwent incisional and excisional debridement of right foot and right ankle by podiatry. Patient also found to have prostate abscess underwent transrectal ultrasound aspiration of a bscess and transurethral resection of prostate and unroofing of abscess b y urology Dr. Bass. Endocrinology treated the DKA and blood sugars m uch improved. Patient's right foot was not salvageable and patient und erwent right BKA by Dr. LEROY on 08/28. Patient blood cultures showe d MRSA. Patient continued on antibiotics as per ID. MRI of the pelvis and foot completed. Patient r equired multiple PRBCs for anemia. Patient was found to have a possible small hematoma of the left calf on ultrasound. He complains of pain and swelling of the left ankle. Patient hemodynamically stable and plans are to be transferred to stepdown unit. He is on heparin subcu for VTE. Af ter surgery he is now being mobilized by PT and OT. He is wearing a [employer]or-[employer] orthotic for right knee /BKA protection. Prior to admission the patient was independent living in a single-story house with his spouse with a few steps up to front and back doo r. 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 is at bedside. Patient denies nausea, vomiting, fever, chills, chest pain, shortness of breath with diz ziness. He is requiring IV Dilaudid for pain control. Mental status back to baseline. Pt is progressing slowly with therapy d/t weakness and pain, self care deficit, decreased endurance and balance, and decreased functional mobility. Pt requiring acute inpt rehab for multidiscipli nary team of nursing, therapy, and physicians. Pt is willing and able to partici- kathleen in 3 hr/day inpt rehab to d/c home safely. Pt' s prior level of function was independent. Objective General VS: Vital Signs: Date Time Temp Pulse Resp B/P B/P Pulse O2 O2 F low FiO2 Mean Ox Delivery Rate 09/16 0722 97.3 77 18 159/79 105.3 96 Room air 09/16 0004 97.5 78 16 147/78 101.2 95 09/15 1939 97.5 77 18 167/84 111.5 96 09/15 1651 97.3 77 18 163/75 104.3 95 PATIENT WEIGHT: Weight (lb): 165 Weight (oz): 5.55 Weight (kg): 75.000 Medications: Active Meds + DC'd Last 24 Hrs Furosemide (LASIX 40 mg/4 mL INJECTION) 40 MG Q8 HR IV Hydralazine HCl (APRESOLINE) 25 MG Q8HR PO Daptomycin (CUBICIN 500MG) 500 MG Q48H IV Sodium Chloride (SODIUM CHLORIDE 0.9%) 50 ML Prednisone (predniSONE) 80 MG ONCE ONE PO (DC) Insulin Human Lispro (HUMALOG) 10 UNIT AC SUBQ Heparin Sodium (HEPARIN 5000 UNITS/ML) 5,000 UNI T Q12HR SUBQ Insulin Glargine (Semglee) 20 UNIT BEDTIME SUBQ Meropenem (MEROPENEM) 500 MG Q8H IV Sterile Water (WATER FOR INJECTION) 10 ML Insulin Glargine (Semglee) 14 UNIT BEDTIME SUBQ (DC) Insulin Human Lispro (HUMALOG) 7 UNIT AC SUBQ (D C) Carvedilol (COREG) 25 MG C BK DIN PO Gabapentin (NEURONTIN) 100 MG Q8HR PO Oxycodone/Acetaminophen (PERCOCET 5/325MG TAB) 2 TAB Q4H PRN PRN PO Ferric Sodium Gluconate Complex (FERRLECIT) 125 MG DAILY IV (DC) Sodium Chloride (SODIUM CHLORIDE 0.9%) 100 ML Folic Acid (FOLIC ACID) 2 MG DAILY PO Multivitamins (TAB-A-MOHAN) 1 TAB DAILY PO Furosemide (LASIX 20MG INJ) 20 MG BLOOD-DOSE BET WEEN IV (CKD) Sodium Chloride (SODIUM CHLORIDE) 10 ML ASDIR IV Pantoprazole Sodium (PROTONIX) 40 MG Q12HR IV Polyethylene Glycol (MIRALAX) 17 GM DAILY PO Sennosides (Senna Lax 8.6 MG TABLET) 8.6 MG MADALYN Y PO Sodium Chloride (SODIUM CHLORIDE) 10 ML ASDIR P RN IV Amitriptyline HCl (ELAVIL) 25 MG BEDTIME PO Zinc Oxide (ZINC OXIDE 30 GM OINTMENT) 1 APPLIC DAILY TOPICAL Sterile Water (WATER FOR IRRIGATION) DRESSING CH GELACIO ASDIR PRN IRR Insulin Human Lispro (HUMALOG) 0 AC HS SUBQ Dextrose/Water (DEXTROSE 10% IN WATER) 125 ML DIR PRN IV (CKD) Dextrose/Water (DEXTROSE 10% IN WATER) 250 ML DIR PRN IV (CKD) Glucagon (GLUCAGON) 1 MG ASDIR PRN IM Lidocaine (LIDODERM) 1 PATCH DAILY TOPICAL Acetaminophen (TYLENOL) 650 MG Q6H PRN PRN PO Bisacodyl (DULCOLAX) 10 MG DAILY PRN PRN RECTAL Docusate Sodium (COLACE) 100 MG Q12H PRN PRN PO Hydralazine HCl (APRESOLINE) 10 MG Q6H PRN PRN I V Ondansetron HCl (ZOFRAN) 4 MG Q6H PRN PRN IV Physical Exam General appearance: alert, awake, no acute distr ess Psych: alert, normal affect, oriented x 3 HEENT: anicteric, sclera clear Neck: supple, no JVD Cardiovascular: S1/S2, no murmur Respiratory: aerating well, clear bilaterally Abdomen: bowel sounds present, non-distended, so ft, non-tender Skin: no rash, R BKA HEALING. 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 3, CNII-XII intact Results Findings/Data: Laboratory Tests: 09/16 09/16 09/16 09/15 09/15 1110 0553 0455 1937 1640 Chemistry Sodium (134 - 147 mEq/L) 135 Potassium (3.4 - 5.0 mEq/L) 4.5 Chloride (100 - 108 mEq/L) 108 Carbon Dioxide (21 - 33 mEq/l) 20 L Anion Gap (0 - 20) 11 BUN (7 - 18 mg/dL) 60 H Creatinine (0.6 - 1.3 mg/dL) 2.7 H Glomerular Filtr Rate (90 - 95) 26.5 L Glucose (70 - 110 mg/dL) 175 H POC Glucose (70 - 110 MG/DL) 148 H 195 H 124 H 137 H Calcium (8.0 - 10.5 mg/dL) 7.5 L Phosphorus (2.5 - 4.9 MG/DL) 4.6 Magnesium (1.80 - 2.40 mg/dL) 1.93 Hematology WBC (4.5 - 11.0 x10 3/uL) 9.5 RBC (4.00 - 5.60 x10 6/uL) 2.70 L Hgb (12.5 - 16.9 g/dL) 7.6 L Hct (37.5 - 50.7 %) 23.7 L MCV (81.0 - 99.0 fL) 87.8 MCH (27.0 - 33.0 pg) 28.1 MCHC (33.0 - 37.0 g/dL) 32.1 L RDW (11.5 - 14.5 %) 14.6 H Plt Count (150 - 400 x10 3/uL) 360 MPV (7.0 - 9.0 fL) 9.6 H Neut % (Auto) (56.0 - 77.0 %) 73.4 Lymph % (Auto) (14.0 - 32.0 %) 18.6 Boundary % (Auto) (4.8 - 9.0 %) 6.7 Eos % (Auto) (0.3 - 3.7 %) 0.2 L Baso % (Auto) (0.0 - 2.0 %) 0.1 Neut # (Auto) (2.0 - 7.6 x10 3/uL) 6.99 Lymph # (Auto) (1.0 - 3.8 x10 3/uL) 1.77 Boundary # (Auto) (0.1 - 0.8 x10 3/uL) 0.64 Eos # (Auto) (0.0 - 0.2 x10 3/uL) 0.02 Baso # (Auto) (0.0 - 0.2 x10 3/uL) 0.01 Abs Immat Gran (auto) (0.00 - 0.03 0.10 H x10 3/uL) Add Manual Diff NO Immature Gran % (0.0 - 2.0 %) 1.0 Nucleated RBC % (0 - 0 %) 0.0 Nucleated RBCs # (Man) (0.0 - 0.1 0.00 x10 3/uL) Diagnosis, Assessment Plan Free Text A P: Assessment: 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 Leroy Significant impairment in self-care, ADLs and fu nctional mobility Impaired mobility and gait Acute postoperative pain right BKA Diabetic polyneuropathy DKA, DM 2, poorly controlled, A1c greater than 1 4 PAD MRSA bacteremia/sepsis-treated on acute ERIKA Severe hyponatremia-resolved HTN Acute on chronic anemia requiring multiple trans fusions, possible GI bleed Left calf hematoma Edema and clinical arthritis left ankle Early decubitus to left heel/DTI dorsal left mid foot Prostatic abscess 08/26: S/p transrectal ultrasound aspiration of ab scess and transurethral resection of prostate and unroofing of abscess 09/12: Echo: EF 55-59%, grade 1 diastolic dysfunc tion 09/02: JIMENA negative for vegetation MRSA OF NARES 09/08:s/p EGD and colonoscopy. EGD showed mild ga stritis. Colonoscopy showed rectal polyp that was resect ed by snare (tubular adenoma)-repeat colonoscopy in 5 years Plan: -PLOF: Independent with transfers and gait -Amputee rehab program -Continue PT and OT -15/12 rehabilitation nursing care. -Case management for safe discharge planning. -Decubitus prevention -Early decubitus to left heel/DTI dorsal left mi dfoot-zinc oxide to the foot, foam, offloading, podiatry managing -DVT prophylaxis-subcutaneous heparin -Strict fall and safety precautions -Work on bed mobility, transfer training, ADLs, pre-gait and gait exercises -Increase endurance and strength -Monitor pain with therapies -OOB to chair -Monitor p.o. intake and nut rition, albumin 1.3, prealbumin less than 5, dietary consultation, protein supplements to promote hea ling -Diabetes-A1c 14, tight glycemia control- endocr ine on board, insulin adjustments -Endocrinology, ID, podiatry, cardiology, IM con sulted -Pain management adjusting pain medications -Anemia, patient required multiple units of PRBC s on acute, FOBT positive -IV Protonix-consult GI-seri al H H-no evidence of gross bleeding-discussed with Dr. Trinidad -Constipation-abdominal dytxfvlt-YAI-brrgnh-CW S enokot and MiraLAX, DSP -Right DKD-qgboixp-quqehnul resolved, dr martinez changed ezlww-emablwq-rnukspzy NESTOR-TECH -MRSA OF NARES on Bactroban protocol -LLE edema-venous Doppler wi th complex heterogeneous hypoechoic fluid collection in the left calf region measuring 8.4, 2.8, 2.5 cm suggestive of hematoma. On low-dose Lasix. Oralia wrap LLE -LE edema could be related to hypoalbuminemia le ading to third spacing-edema improving -Generalized edema-some shor tness of breath and abdominal distention-cardiology gave a dose of IV Lasix-monitor urine output, da jaz weights-SOB resolved -09/05-venous Doppler of LLE-negative for DVT-Oralia wrap dressing and elevation -Anemia-hemoglobin 8.3, 7.7, 8.2, transfused 2 u nits of PRBC on 09/05 -09/08: s/p EGD and colonoscopy. EGD showed mild gastritis. Colonoscopy showed rectal polyp that was resected by snare. Anemia likely secondary to chronic kidney disease. Consult renal. -Pathology of polyp came back as tubular adenoma . recommend repeating colonoscopy in 5 years as per GI -Consider video capsule endoscopy as outpt if ev idence of dropping H/H -Renal ultrasound negative -09/16/2022 laboratory this candelaria lin showed sodium 135, potassium 4.5, CO2 20, BUN 60, creatinine 2.7, better down from 2.9, hemogl obin 7.6, platelet 360, blood count 9.5, will give prednisone 80 mg p.o. today , blood pressure is elevated, will add hydralazine 25 mg p .o. 3 times daily, scrotal and LE swelling will give Lasix 40 mg IV x 3-as per renal -on Merrem and Daptomycin til 5/3 as per ID -Lasix as per nephrology -Completed Solu-Medrol -Noted LLE swelling (not new ) and low albumin. may benefit from albumin infusion + Lasix -CXR-worsening opacities in the right mid and lo wer lung field. Improved left retrocardiac opacities -BNP 297 -09/12: Echo-EF 55-60%, indet erminate diastolic function parameters as per cardio -09/16: Blood pressure slightly elevated, started on hydralazine 25 mg every 8 hours. Continue carvedilol monitor blood pressur e trend. Cr. 2.7 today, continue monitor. Tolerating physical therapy. E uvolemic by physical examination as per cardio. -Advance therapies as tolerated-discusse d treatment plan with patient and -Patient progressing well in therapy. Patient wi th improved transfers and endurance. -Car transfer training 09/23 -Discussed with patient and about renal iss ues that seem to be improving -Team conference-making good functional progress Progress: ENERGY CONSERVATION, WC MOBILITY, AND BRACE POSITIONING. PATIENT MIN A FOR DUKE العلي AND SBA FOR SUPINE TO SIT. PATIENT SET UP/CGA FOR SLIDE BOARD TRANSFER FROM BED TO . PATIENT PROPELLED WC 2 00 ' X 2 WITH MOD I USING PO UE TO PROPEL. PATIENT TOLERATED SEATED EXERCISE X 20 IN ALL PLANES WITH 3# ANKLE WEIGH T. PATIENT PERFROMED PUSH UP ON WC X 5 WITH VC FOR SEQUEINCING AND SBA. PATIENT MIN A FOR SIT TO STAND X 5 IN PARALLEL BARS. PM R Please see team note. Plan and goals discussed with the patient. I agree with the teams finding ELOS- [09/24] on IV antibiotics until 09/24 DC-Home with -Home health DME-bedside commode, sliding board, wheelchair, drop arm bedside commode Total time 33 minutes greater than 50% of the ti me spent examining patient, discussing with patient and about team conf erence, slight improvement in renal function, on steroids, medical issues, ane renetta, amputee rehab, discharge plans, rehab plan of care, goals, therapies, pro dyan, labs, medications. EMR and MAR is reviewed. All questions answered Orders: Procedure Date/time Status OT EXERCISE 15MIN 09/16 UNK Complete Consultants: cardiology, endocrinology, hospital ist, infectious disease, podiatry Rehab attestation: Face to face exam completed. Treatment plan disc ussed with patient. Meets continued stay criteria. Agree with interdiscipl inary treatment plan. at 1503 RPT #:[id number] END OF REPORT 2022-09-16 05:43:00-00:00 [facility] ([facility]) Pain Management Progress Note REPORT#:[id number] REPORT STATUS: Signed DATE:09/16/22 TIME: 542 PATIENT: KARMA ROWLAND UNIT #: [id number] [place] [facility] [place] : [place] AGE: 56 SEX: M ATTEND: Fredy Vences MD ADM AUTHOR: Charlie Quiroga CLAY MILLER * ALL edits or amendments must be made on the [employer]/computer document * Charlie Quiroga 09/16/22 0543: Subjective Chief complaint: Patient seen and examined. Chart/MAR reviewed. Patient is with adequate pain control th is morning. Slept well. Pain relieving medications are effective when taken. No side ef fects at this time. Patient being seen for Acute postoperative pain, right foot and ankle gangrene, requiring BKA, Constipation Patient is still requiring medications to help w ith managing current problems. Patient is requiring IV narcotics to help manage breakthrough pain No fever/chills, chest pain, orthopnea, nausea/v omiting, pruritus, or hallucinations. 14 point ROS undertaken unremarkable except as n oted Objective General VS/I O: Vital Signs Date Temp Pulse Resp B/P B/P Mean Pulse Ox FiO2 09/15-09/16 97.3-97.5 77-78 16-18 147-167/75-84 101.2-111.5 95-96 Last Documented: Result Date Time Pulse Ox 95 09/16 0004 B/P 147/78 09/16 0004 B/P Mean 101.2 09/16 0004 Temp 97.5 09/16 0004 Pulse 78 09/16 0004 Resp 16 09/16 0004 O2 Delivery Nasal cannula 09/14 2331 O2 Flow Rate 2 09/08 1322 24 hour I O ending at 0700: 09/16 0700 09/15 1900 Intake Total 200 1060 Output Total 1400 Balance 200 -340 Intake, Oral 200 1060 Number 0 Incontinent Voids Number Voids 0 Output, Urine 1400 PATIENT WEIGHT: Weight (lb): 165 Weight (oz): 5.55 Weight (kg): 75.000 Medications: Active Meds + DC'd Last 24 Hrs Daptomycin (CUBICIN 500MG) 500 MG Q48H IV Sodium Chloride (SODIUM CHLORIDE 0.9%) 50 ML Insulin Human Lispro (HUMALOG) 10 UNIT AC SUBQ Heparin Sodium (HEPARIN 5000 UNITS/ML) 5,000 UNI T Q12HR SUBQ Insulin Glargine (Semglee) 20 UNIT BEDTIME SUBQ Meropenem (MEROPENEM) 500 MG Q8H IV Sterile Water (WATER FOR INJECTION) 10 ML Methylprednisolone Sodium Succinate (Solu-Medrol 125 MG Vial) 125 MG ONCE ONE IV (DC) Insulin Glargine (Semglee) 14 UNIT BEDTIME SUBQ (DC) Insulin Human Lispro (HUMALOG) 7 UNIT AC SUBQ (D C) Carvedilol (COREG) 25 MG C BK DIN PO Daptomycin (CUBICIN 500MG) 500 MG Q24H IV (DC) Sodium Chloride (SODIUM CHLORIDE 0.9%) 50 ML Meropenem (MEROPENEM) 500 MG Q12H IV (DC) Sterile Water (WATER FOR INJECTION) 10 ML Gabapentin (NEURONTIN) 100 MG Q8HR PO Oxycodone/Acetaminophen (PERCOCET 5/325MG TAB) 2 TAB Q4H PRN PRN PO Ferric Sodium Gluconate Complex (FERRLECIT) 125 MG DAILY IV Sodium Chloride (SODIUM CHLORIDE 0.9%) 100 ML Folic Acid (FOLIC ACID) 2 MG DAILY PO Multivitamins (TAB-A-MOHAN) 1 TAB DAILY PO Furosemide (LASIX 20MG INJ) 20 MG BLOOD-DOSE BET WEEN IV (CKD) Sodium Chloride (SODIUM CHLORIDE) 10 ML ASDIR IV Pantoprazole Sodium (PROTONIX) 40 MG Q12HR IV Polyethylene Glycol (MIRALAX) 17 GM DAILY PO Sennosides (Senna Lax 8.6 MG TABLET) 8.6 MG MADALYN Y PO Sodium Chloride (SODIUM CHLORIDE) 10 ML ASDIR NV N IV Amitriptyline HCl (ELAVIL) 25 MG BEDTIME PO Zinc Oxide (ZINC OXIDE 30 GM OINTMENT) 1 APPLIC DAILY TOPICAL Sterile Water (WATER FOR IRRIGATION) DRESSING CH GELACIO ASDIR PRN IRR Insulin Human Lispro (HUMALOG) 0 AC HS SUBQ Dextrose/Water (DEXTROSE 10% IN WATER) 125 ML DIR PRN IV (CKD) Dextrose/Water (DEXTROSE 10% IN WATER) 250 ML DIR PRN IV (CKD) Glucagon (GLUCAGON) 1 MG ASDIR PRN IM Lidocaine (LIDODERM) 1 PATCH DAILY TOPICAL Heparin Sodium (HEPARIN 5000 UNITS/ML) 5,000 UNI T Q8HR SUBQ (DC) Acetaminophen (TYLENOL) 650 MG Q6H PRN PRN PO Bisacodyl (DULCOLAX) 10 MG DAILY PRN PRN RECTAL Docusate Sodium (COLACE) 100 MG Q12H PRN PRN PO Hydralazine HCl (APRESOLINE) 10 MG Q6H PRN PRN I V Ondansetron HCl (ZOFRAN) 4 MG Q6H PRN PRN IV Physical Exam General appearance: alert, awake, oriented, no a cute distress Head/eyes: atraumatic, EOMI, normocephalic, norm al conjunctiva/sclera, PERRLA ENT: normal ear left, normal ear right, normal n ose, normal pharynx, moist mucosal membranes Neck: full range of motion, no lymphadenopathy, supple/no meningismus Cardiovascular: regular rate rhythm Respiratory: clear to auscultation, no distress, aerating well Abdomen: soft, non-tender, no distention , active bowel sounds in all quarants. 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, no sensory deficit s, CNII-XII grossly intact Considered stroke alert: no Skin: dry, normal turgor, no rash, warm Psychiatry: normal affect Results Findings/data: Laboratory Tests: 09/15 09/15 09/15 09/15 1937 1640 1304 1154 Chemistry POC Glucose (70 - 110 MG/DL) 124 H 137 H 126 H Urines Urine Color (YEL/STRAW) YELLOW Urine Appearance (CLEAR) SL CLOUDY Urine pH (5.0 - 7.0) 5.0 Ur Specific [place] (1.005 - 1.030) 1.013 Urine Protein (NEGATIVE) 2+ H Urine Glucose (UA) (NEGATIVE) 2+ H Urine Ketones (NEGATIVE) NEGATIVE Urine Blood (NEGATIVE) 2+ H Urine Nitrite (NEGATIVE) NEGATIVE Urine Bilirubin (NEGATIVE) NEGATIVE Urine Urobilinogen (0.2 - 1.0 mg/dL) 0.2 Ur Leukocyte Esterase (NEGATIVE) TRACE H Urine RBC (0 - 3 RBC/HPF) 21-50 Urine WBC (0 - 3 WBC/HPF) 4-9 H Ur Squamous Epith Cells (NONE SEEN /HPF) 0-5 Ur Transition Epith Cell (NONE SEEN /HPF) TRACE Urine Bacteria (NONE SEEN /HPF) TRACE Granular Casts (NONE /LPF) 3-5 Urine Mucus (NONE SEEN /LPF) TRACE Ur Random Creatinine (mg/dL) 52.5 U Random Total Protein (mg/dL) 283 Diagnosis, Assessment Plan Free text A P: A/P: Patient is a 56 year old male who presents with: Recent prostate abscess -Status post TURP with unroofing of abscess -IV antibiotics with vancomycin until 5-3-2023 Acute postoperative pain, right foot and ankle g angrene, requiring BKA -Patient is at risk for further amputations or l oss of limb due to comorbid conditions -Status post right BKA 08/28/2022 -DC Check 10/325 1 tablet p.o. every 4 hours as needed pain scale 4 10 -DC Dilaudid 0.5 mg IV daily as needed pain scale 7 10, second line therapy () -Tylenol 650 mg p.o. every 6 hours as needed ofelia n scale 1 3 -Percocet 10/325mg every 4 hours as needed, pain scale 4-10 (09/10) -Lidoderm patch to left ankle daily -IV antibiotics with vancomycin until 09-24-2022 -Local wound care -manageable Diabetic peripheral neuropathy -amitriptyline 25mg PO QHS -Gabapentin 100mg every 8 hours (09/10) -manageable Hypertension -We will monitor hypertension and tachycardia du e to pain, and hypotension as well as bradycardia secondary over sedation with narcotics -Hydralazine as needed Elevated LFTs -08/20/22-AST 51, ALT 22 -09/03/2022-AST 15, ALT 7 -Patient will require close monitoring since he is using narcotics with Tylenol Impaired functional mobility, balance, gait, and endurance -PT/OT Antalgic/Impaired gait -PT/OT -Improve strength, endurance, self-care, gait, b alance, ADLs -Fall precautions per unit protocol -Pain medications as outlined above Constipation -We will monitor while utilizing opioid narcotic medications. -Adequate fluid intake also discussed. -Colace 100 mg p.o. twice daily as needed -Dulcolax 10 mg rectally daily as needed -Senna lax 8.6mg daily -Miralax 17gm daily -manageable Disposition: Past Medical History: Prostate abscess, right fo ot foot and ankle gangrene, diabetes, hypertension, hyperlipidemia Past Surgical History: TURP, right BKA Family History: Noncontributory Social History: Denies tobacco, alcohol, or drug use Allergies: NKDA Patient has failed conservative medical therapy. Patient will require monitoring while utilize na rcotic medications for any adverse effects, and will adjust as needed Plan of care discussed with patient and nurse All diagnostics of last 24 hours been reviewed. Risks versus benefits of opioid medications were reviewed to include, but not limited to respiratory depression, accid ental overdose, altered mental status, sudden , constipation which could result in bowel obstruction, seizures, withdrawal, dependency addiction, risk for falls . Case discussed with Dr Ng whom agrees. Thank you for the consultation. [place] [facility] NURSE: -database searched, no information found Kingsley Ng 10/04/22 1646: Attestations Physician Attestation Agree w/findings plan: The patient was seen and exa mined by Charlie Quiroga. I personally developed the care plan, which was continued by the mid-level provider. I was immediately available. at 0725 Electronically Signed by Kingsley Ng MD on 3 at 1648 RPT #:[id number] END OF REPORT 2022-09-15 20:52:00-00:00 [facility]ACL [facility] Podiatry Progress Note REPORT#:[id number] REPORT STATUS: Signed DATE:09/15/22 TIME: 2051 PATIENT: KARMA ROWLAND UNIT #: [id number] ROOM/BED: [place] [address] : 61 AGE: 56 SEX: M ATTEND: Fredy Vences MD ADM AUTHOR: Liam Pedersen DPM * ALL edits or amendments must be made on the [employer]/computer document * Subjective Chief complaint: left heel ulcer. left ankle pain Patient reports: no chest pa in, no cough, no diarrhea, no dizziness, no headache , no itching, no nausea Objective General VS: Last Documented: Result Date Time Pulse Ox 96 09/15 1938 B/P 167/84 09/15 1938 B/P Mean 111.5 09/15 1938 Temp 36.4 09/15 1938 Pulse 77 09/15 1938 Resp 18 09/15 1938 O2 Delivery Nasal cannula 09/14 2331 O2 Flow Rate 2 09/08 1322 PATIENT WEIGHT: Weight (lb): 165 Weight (oz): 5.55 Weight (kg): 75.000 Medications: Active Meds + DC'd Last 24 Hrs Daptomycin (CUBICIN 500MG) 500 MG Q48H IV Sodium Chloride (SODIUM CHLORIDE 0.9%) 50 ML Insulin Human Lispro (HUMALOG) 10 UNIT AC SUBQ Heparin Sodium (HEPARIN 5000 UNITS/ML) 5,000 UNI T Q12HR SUBQ Insulin Glargine (Semglee) 20 UNIT BEDTIME SUBQ Meropenem (MEROPENEM) 500 MG Q8H IV Sterile Water (WATER FOR INJECTION) 10 ML Methylprednisolone Sodium Succinate (Solu-Medrol 125 MG Vial) 125 MG ONCE ONE IV (DC) Insulin Glargine (Semglee) 14 UNIT BEDTIME SUBQ (DC) Insulin Human Lispro (HUMALOG) 7 UNIT AC SUBQ (D C) Carvedilol (COREG) 25 MG C BK DIN PO Daptomycin (CUBICIN 500MG) 500 MG Q24H IV (DC) Sodium Chloride (SODIUM CHLORIDE 0.9%) 50 ML Meropenem (MEROPENEM) 500 MG Q12H IV (DC) Sterile Water (WATER FOR INJECTION) 10 ML Gabapentin (NEURONTIN) 100 MG Q8HR PO Oxycodone/Acetaminophen (PERCOCET 5/325MG TAB) 2 TAB Q4H PRN PRN PO Ferric Sodium Gluconate Complex (FERRLECIT) 125 MG DAILY IV Sodium Chloride (SODIUM CHLORIDE 0.9%) 100 ML Folic Acid (FOLIC ACID) 2 MG DAILY PO Multivitamins (TAB-A-MOHAN) 1 TAB DAILY PO Furosemide (LASIX 20MG INJ) 20 MG BLOOD-DOSE BET WEEN IV (CKD) Sodium Chloride (SODIUM CHLORIDE) 10 ML ASDIR IV Pantoprazole Sodium (PROTONIX) 40 MG Q12HR IV Polyethylene Glycol (MIRALAX) 17 GM DAILY PO Sennosides (Senna Lax 8.6 MG TABLET) 8.6 MG MADALYN Y PO Sodium Chloride (SODIUM CHLORIDE) 10 ML ASDIR NV N IV Amitriptyline HCl (ELAVIL) 25 MG BEDTIME PO Zinc Oxide (ZINC OXIDE 30 GM OINTMENT) 1 APPLIC DAILY TOPICAL Sterile Water (WATER FOR IRRIGATION) DRESSING CH GELACIO ASDIR PRN IRR Insulin Human Lispro (HUMALOG) 0 AC HS SUBQ Dextrose/Water (DEXTROSE 10% IN WATER) 125 ML DIR PRN IV (CKD) Dextrose/Water (DEXTROSE 10% IN WATER) 250 ML DIR PRN IV (CKD) Glucagon (GLUCAGON) 1 MG ASDIR PRN IM Lidocaine (LIDODERM) 1 PATCH DAILY TOPICAL Heparin Sodium (HEPARIN 5000 UNITS/ML) 5,000 UNI T Q8HR SUBQ (DC) Acetaminophen (TYLENOL) 650 MG Q6H PRN PRN PO Bisacodyl (DULCOLAX) 10 MG DAILY PRN PRN RECTAL Docusate Sodium (COLACE) 100 MG Q12H PRN PRN PO Hydralazine HCl (APRESOLINE) 10 MG Q6H PRN PRN I V Ondansetron HCl (ZOFRAN) 4 MG Q6H PRN PRN IV I O: 24 hour I O ending at 0700: 09/15 0700 09/14 1900 Intake Total Output Total 1000 Balance -1000 Number 0 Incontinent Voids Number Voids 0 Output, Urine 1000 Dietitian nutrition assessment The data set between the solid lines has been im ported from the dietitian's assessment. BMI Calculated: 26.7 Nutrition related diagnosis: Nutrition diagnosis details: Nutrition problem: Altered nutrition labs Nutrition etiology: DM Nutrition signs and symptoms: HYPER/HYPOGLYCEMIA , A1C >14 Nutrition prescription: CONTINUE DM DIET Dietitian name: You Palmer, DIET Assessment completed: 09/09/22 Physical Exam General appearance: alert, a wake, oriented, conversational, mental status normal Wound/incision: Location: left foot Site condition: dp/pt 2/4 left. light touch dec reased left foot. ulcer starting at posterior left heel. eccymosis noted . early likely stage 1. left ankle has edema. pain with aggressive ROM left a nkle. dorsal left midfoot is starting to have tissue injury LE vascular pulse assess: 2+ L posterior tibialis, 2+ L dorsalis pedis Considered stroke alert: no Ulcer: Location: DTI dorsal left midfoot Results Findings/Data: Laboratory Tests: 09/15 09/15 09/15 09/15 1937 1640 1304 1154 Chemistry POC Glucose (70 - 110 MG/DL) 124 H 137 H 126 H Urines Urine Color (YEL/STRAW) YELLOW Urine Appearance (CLEAR) SL CLOUDY Urine pH (5.0 - 7.0) 5.0 Ur Specific [place] (1.005 - 1.030) 1.013 Urine Protein (NEGATIVE) 2+ H Urine Glucose (UA) (NEGATIVE) 2+ H Urine Ketones (NEGATIVE) NEGATIVE Urine Blood (NEGATIVE) 2+ H Urine Nitrite (NEGATIVE) NEGATIVE Urine Bilirubin (NEGATIVE) NEGATIVE Urine Urobilinogen (0.2 - 1.0 mg/dL) 0.2 Ur Leukocyte Esterase (NEGATIVE) TRACE H Urine RBC (0 - 3 RBC/HPF) 21-50 Urine WBC (0 - 3 WBC/HPF) 4-9 H Ur Squamous Epith Cells (NONE SEEN /HPF) 0-5 Ur Transition Epith Cell (NONE SEEN /HPF) TRACE Urine Bacteria (NONE SEEN /HPF) TRACE Granular Casts (NONE /LPF) 3-5 Urine Mucus (NONE SEEN /LPF) TRACE Ur Random Creatinine (mg/dL) 52.5 U Random Total Protein (mg/dL) 283 09/15 09/15 0519 0506 Chemistry Sodium (134 - 147 mEq/L) 132 L Potassium (3.4 - 5.0 mEq/L) 4.7 Chloride (100 - 108 mEq/L) 105 Carbon Dioxide (21 - 33 mEq/l) 17 L Anion Gap (0 - 20) 15 BUN (7 - 18 mg/dL) 38 H Creatinine (0.6 - 1.3 mg/dL) 2.9 H Glomerular Filtr Rate (90 - 95) 24.3 L Glucose (70 - 110 mg/dL) 312 H POC Glucose (70 - 110 MG/DL) 309 H Calcium (8.0 - 10.5 mg/dL) 7.2 L Phosphorus (2.5 - 4.9 MG/DL) 5.7 H Magnesium (1.80 - 2.40 mg/dL) 1.96 Total Creatine Kinase (46 - 171 Units/L) 26 L Albumin (3.4 - 5.0 g/dL) 1.50 L Prealbumin (16.0 - 40.0 mg/dL) 8.0 L Hematology WBC (4.5 - 11.0 x10 3/uL) 8.7 RBC (4.00 - 5.60 x10 6/uL) 2.88 L Hgb (12.5 - 16.9 g/dL) 8.2 L Hct (37.5 - 50.7 %) 26.5 L MCV (81.0 - 99.0 fL) 92.0 MCH (27.0 - 33.0 pg) 28.5 MCHC (33.0 - 37.0 g/dL) 30.9 L RDW (11.5 - 14.5 %) 14.3 Plt Count (150 - 400 x10 3/uL) 341 MPV (7.0 - 9.0 fL) 9.1 H Neut % (Auto) (56.0 - 77.0 %) 84.9 H Lymph % (Auto) (14.0 - 32.0 %) 11.3 L Boundary % (Auto) (4.8 - 9.0 %) 3.2 L Eos % (Auto) (0.3 - 3.7 %) 0.0 L Baso % (Auto) (0.0 - 2.0 %) 0.1 Neut # (Auto) (2.0 - 7.6 x10 3/uL) 7.35 Lymph # (Auto) (1.0 - 3.8 x10 3/uL) 0.98 L Boundary # (Auto) (0.1 - 0.8 x10 3/uL) 0.28 Eos # (Auto) (0.0 - 0.2 x10 3/uL) 0.00 Baso # (Auto) (0.0 - 0.2 x10 3/uL) 0.01 Abs Immat Gran (auto) (0.00 - 0.03 x10 3/uL) 0. 04 H Add Manual Diff NO Immature Gran % (0.0 - 2.0 %) 0.5 Nucleated RBC % (0 - 0 %) 0.0 Nucleated RBCs # (Man) (0.0 - 0.1 x10 3/uL) 0.0 0 Diagnosis, Assessment Plan Free Text A P: DM with neuropathy early decub ulcer left heel OA/edema left ankle early ulcer/DTI dorsal left midfoot zinc oxide to foot and heel foam to heel on IV abx on PO gabapentin offloading boot oralia wraps to ankle, only when OOB with therapy. zinc oxide interchange with bactroban ( applied to dorsal left midfoot early ulcer) Consultants: cardiology, endocrinology, hospital ist, infectious disease, podiatry Electronically Signed by Liam Pedersen DPM on 0 09/15/22 at 2053 RPT #:[id number] END OF REPORT 2022-09-15 17:24:00-00:00 [facility] Endocrinology Progress Note REPORT#:[id number] REPORT STATUS: Signed DATE:09/15/22 TIME: 1723 PATIENT: KARMA ROWLAND UNIT #: [id number] ROOM/BED: [place] [address] : 61 AGE: 56 SEX: M ATTEND: Fredy Vences MD ADM AUTHOR: Braxton Chapin MD * ALL edits or amendments must be made on the [employer]/computer document * Subjective Patient reports: no complaints Objective General VS: Last Documented: Result Date Time Pulse Ox 95 09/15 1651 B/P 163/75 09/15 1651 B/P Mean 104.3 09/15 1651 Temp 36.3 09/15 1651 Pulse 77 09/15 1651 Resp 18 09/15 1651 O2 Delivery Nasal cannula 09/14 2331 O2 Flow Rate 2 09/08 1322 PATIENT WEIGHT: Weight (lb): 165 Weight (oz): 5.55 Weight (kg): 75.000 Medications: Active Meds + DC'd Last 24 Hrs Daptomycin (CUBICIN 500MG) 500 MG Q48H IV Sodium Chloride (SODIUM CHLORIDE 0.9%) 50 ML Heparin Sodium (HEPARIN 5000 UNITS/ML) 5,000 UNI T Q12HR SUBQ Meropenem (MEROPENEM) 500 MG Q8H IV Sterile Water (WATER FOR INJECTION) 10 ML Methylprednisolone Sodium Succinate (Solu-Medrol 125 MG Vial) 125 MG ONCE ONE IV (DC) Insulin Glargine (Semglee) 14 UNIT BEDTIME SUBQ Insulin Human Lispro (HUMALOG) 7 UNIT AC SUBQ Carvedilol (COREG) 25 MG C BK DIN PO Daptomycin (CUBICIN 500MG) 500 MG Q24H IV (DC) Sodium Chloride (SODIUM CHLORIDE 0.9%) 50 ML Meropenem (MEROPENEM) 500 MG Q12H IV (DC) Sterile Water (WATER FOR INJECTION) 10 ML Gabapentin (NEURONTIN) 100 MG Q8HR PO Oxycodone/Acetaminophen (PERCOCET 5/325MG TAB) 2 TAB Q4H PRN PRN PO Ferric Sodium Gluconate Complex (FERRLECIT) 125 MG DAILY IV Sodium Chloride (SODIUM CHLORIDE 0.9%) 100 ML Folic Acid (FOLIC ACID) 2 MG DAILY PO Multivitamins (TAB-A-MOHAN) 1 TAB DAILY PO Furosemide (LASIX 20MG INJ) 20 MG BLOOD-DOSE BET WEEN IV (CKD) Sodium Chloride (SODIUM CHLORIDE) 10 ML ASDIR IV Pantoprazole Sodium (PROTONIX) 40 MG Q12HR IV Polyethylene Glycol (MIRALAX) 17 GM DAILY PO Sennosides (Senna Lax 8.6 MG TABLET) 8.6 MG MADALYN Y PO Sodium Chloride (SODIUM CHLORIDE) 10 ML ASDIR NV N IV Amitriptyline HCl (ELAVIL) 25 MG BEDTIME PO Zinc Oxide (ZINC OXIDE 30 GM OINTMENT) 1 APPLIC DAILY TOPICAL Sterile Water (WATER FOR IRRIGATION) DRESSING CH GELACIO ASDIR PRN IRR Insulin Human Lispro (HUMALOG) 0 AC HS SUBQ Dextrose/Water (DEXTROSE 10% IN WATER) 125 ML DIR PRN IV (CKD) Dextrose/Water (DEXTROSE 10% IN WATER) 250 ML DIR PRN IV (CKD) Glucagon (GLUCAGON) 1 MG ASDIR PRN IM Lidocaine (LIDODERM) 1 PATCH DAILY TOPICAL Heparin Sodium (HEPARIN 5000 UNITS/ML) 5,000 UNI T Q8HR SUBQ (DC) Acetaminophen (TYLENOL) 650 MG Q6H PRN PRN PO Bisacodyl (DULCOLAX) 10 MG DAILY PRN PRN RECTAL Docusate Sodium (COLACE) 100 MG Q12H PRN PRN PO Hydralazine HCl (APRESOLINE) 10 MG Q6H PRN PRN IV Ondansetron HCl (ZOFRAN) 4 MG Q6H PRN PRN IV Physical Exam General appearance: alert, awake Diagnosis, Assessment Plan Hospital course to date: Laboratory Tests: 09/15 09/15 09/15 09/15 1640 7344 1153 0562 Chemistry POC Glucose (70 - 110 MG/DL) 137 H 126 H 309 H Urines Urine Color (YEL/STRAW) YELLOW Urine Appearance (CLEAR) SL CLOUDY Urine pH (5.0 - 7.0) 5.0 Ur Specific [place] (1.005 - 1.030) 1.013 Urine Protein (NEGATIVE) 2+ H Urine Glucose (UA) (NEGATIVE) 2+ H Urine Ketones (NEGATIVE) NEGATIVE Urine Blood (NEGATIVE) 2+ H Urine Nitrite (NEGATIVE) NEGATIVE Urine Bilirubin (NEGATIVE) NEGATIVE Urine Urobilinogen (0.2 - 1.0 mg/dL) 0.2 Ur Leukocyte Esterase (NEGATIVE) TRACE H Urine RBC (0 - 3 RBC/HPF) 21-50 Urine WBC (0 - 3 WBC/HPF) 4-9 H Ur Squamous Epith Cells (NONE SEEN /HPF) 0-5 Ur Transition Epith Cell (NONE SEEN /HPF) TRACE Urine Bacteria (NONE SEEN /HPF) TRACE Granular Casts (NONE /LPF) 3-5 Urine Mucus (NONE SEEN /LPF) TRACE Ur Random Creatinine (mg/dL) 52.5 U Random Total Protein (mg/dL) 283 09/15 09/14 0515 1931 Chemistry Sodium (134 - 147 mEq/L) 132 L Potassium (3.4 - 5.0 mEq/L) 4.7 Chloride (100 - 108 mEq/L) 105 Carbon Dioxide (21 - 33 mEq/l) 17 L Anion Gap (0 - 20) 15 BUN (7 - 18 mg/dL) 38 H Creatinine (0.6 - 1.3 mg/dL) 2.9 H Glomerular Filtr Rate (90 - 95) 24.3 L Glucose (70 - 110 mg/dL) 312 H POC Glucose (70 - 110 MG/DL) 193 H Calcium (8.0 - 10.5 mg/dL) 7.2 L Phosphorus (2.5 - 4.9 MG/DL) 5.7 H Magnesium (1.80 - 2.40 mg/dL) 1.96 Total Creatine Kinase (46 - 171 Units/L) 26 L Albumin (3.4 - 5.0 g/dL) 1.50 L Prealbumin (16.0 - 40.0 mg/dL) 8.0 L Hematology WBC (4.5 - 11.0 x10 3/uL) 8.7 RBC (4.00 - 5.60 x10 6/uL) 2.88 L Hgb (12.5 - 16.9 g/dL) 8.2 L Hct (37.5 - 50.7 %) 26.5 L MCV (81.0 - 99.0 fL) 92.0 MCH (27.0 - 33.0 pg) 28.5 MCHC (33.0 - 37.0 g/dL) 30.9 L RDW (11.5 - 14.5 %) 14.3 Plt Count (150 - 400 x10 3/uL) 341 MPV (7.0 - 9.0 fL) 9.1 H Neut % (Auto) (56.0 - 77.0 %) 84.9 H Lymph % (Auto) (14.0 - 32.0 %) 11.3 L Boundary % (Auto) (4.8 - 9.0 %) 3.2 L Eos % (Auto) (0.3 - 3.7 %) 0.0 L Baso % (Auto) (0.0 - 2.0 %) 0.1 Neut # (Auto) (2.0 - 7.6 x10 3/uL) 7.35 Lymph # (Auto) (1.0 - 3.8 x10 3/uL) 0.98 L Boundary # (Auto) (0.1 - 0.8 x10 3/uL) 0.28 Eos # (Auto) (0.0 - 0.2 x10 3/uL) 0.00 Baso # (Auto) (0.0 - 0.2 x10 3/uL) 0.01 Abs Immat Gran (auto) (0.00 - 0.03 x10 3/uL) 0. 04 H Add Manual Diff NO Immature Gran % (0.0 - 2.0 %) 0.5 Nucleated RBC % (0 - 0 %) 0.0 Nucleated RBCs # (Man) (0.0 - 0.1 x10 3/uL) 0.0 0 Microbiology: Date/Time Procedure - Status Source Growth 09/15 514 MRSA DNA Surveillance Screen - COMP NASAL Laboratory Tests: 09/14 09/14 09/14 09/14 09/13 1130 0736 7718 5225 7795 Chemistry Sodium (134 - 147 mEq/L) 132 L Potassium (3.4 - 5.0 mEq/L) 4.4 Chloride (100 - 108 mEq/L) 104 Carbon Dioxide (21 - 33 mEq/l) 19 L Anion Gap (0 - 20) 14 BUN (7 - 18 mg/dL) 38 H Creatinine (0.6 - 1.3 mg/dL) 2.8 H Glomerular Filtr Rate (90 - 95) 25.4 L Glucose (70 - 110 mg/dL) 325 H POC Glucose (70 - 110 MG/DL) 137 H 290 H 334 H 248 H Calcium (8.0 - 10.5 mg/dL) 7.5 L Hematology WBC (4.5 - 11.0 x10 3/uL) 9.5 RBC (4.00 - 5.60 x10 6/uL) 2.83 L Hgb (12.5 - 16.9 g/dL) 8.0 L Hct (37.5 - 50.7 %) 25.3 L MCV (81.0 - 99.0 fL) 89.4 MCH (27.0 - 33.0 pg) 28.3 MCHC (33.0 - 37.0 g/dL) 31.6 L RDW (11.5 - 14.5 %) 14.0 Plt Count (150 - 400 x10 3/uL) 322 MPV (7.0 - 9.0 fL) 9.3 H Neut % (Auto) (56.0 - 77.0 %) 80.2 H Lymph % (Auto) (14.0 - 32.0 %) 13.9 L Boundary % (Auto) (4.8 - 9.0 %) 5.1 Eos % (Auto) (0.3 - 3.7 %) 0.0 L Baso % (Auto) (0.0 - 2.0 %) 0.1 Neut # (Auto) (2.0 - 7.6 x10 3/uL) 7.58 Lymph # (Auto) (1.0 - 3.8 x10 3/uL) 1.31 Boundary # (Auto) (0.1 - 0.8 x10 3/uL) 0.48 Eos # (Auto) (0.0 - 0.2 x10 3/uL) 0.00 Baso # (Auto) (0.0 - 0.2 x10 3/uL) 0.01 Abs Immat Gran (auto) (0.00 - 0.03 0.07 H x10 3/uL) Add Manual Diff NO Immature Gran % (0.0 - 2.0 %) 0.7 Nucleated RBC % (0 - 0 %) 0.0 Nucleated RBCs # (Man) (0.0 - 0.1 0.00 x10 3/uL) 09/13 1629 Chemistry POC Glucose (70 - 110 MG/DL) 130 H Laboratory Tests: 09/13 09/13 09/13 09/12 1105 [id number] 2016 Chemistry Sodium (134 - 147 mEq/L) 133 L Potassium (3.4 - 5.0 mEq/L) 4.6 Chloride (100 - 108 mEq/L) 107 Carbon Dioxide (21 - 33 mEq/l) 19 L Anion Gap (0 - 20) 12 BUN (7 - 18 mg/dL) 28 H Creatinine (0.6 - 1.3 mg/dL) 2.7 H Glomerular Filtr Rate (90 - 95) 26.5 L Glucose (70 - 110 mg/dL) 241 H POC Glucose (70 - 110 MG/DL) 307 H 258 H 223 H Calcium (8.0 - 10.5 mg/dL) 7.8 L Phosphorus (2.5 - 4.9 MG/DL) 4.7 Magnesium (1.80 - 2.40 mg/dL) 1.92 Hematology WBC (4.5 - 11.0 x10 3/uL) 9.8 RBC (4.00 - 5.60 x10 6/uL) 2.90 L Hgb (12.5 - 16.9 g/dL) 8.2 L Hct (37.5 - 50.7 %) 25.4 L MCV (81.0 - 99.0 fL) 87.6 MCH (27.0 - 33.0 pg) 28.3 MCHC (33.0 - 37.0 g/dL) 32.3 L RDW (11.5 - 14.5 %) 13.7 Plt Count (150 - 400 x10 3/uL) 288 MPV (7.0 - 9.0 fL) 10.0 H Neut % (Auto) (56.0 - 77.0 %) 85.3 H Lymph % (Auto) (14.0 - 32.0 %) 10.4 L Boundary % (Auto) (4.8 - 9.0 %) 3.5 L Eos % (Auto) (0.3 - 3.7 %) 0.0 L Baso % (Auto) (0.0 - 2.0 %) 0.1 Neut # (Auto) (2.0 - 7.6 x10 3/uL) 8.34 H Lymph # (Auto) (1.0 - 3.8 x10 3/uL) 1.02 Boundary # (Auto) (0.1 - 0.8 x10 3/uL) 0.34 Eos # (Auto) (0.0 - 0.2 x10 3/uL) 0.00 Baso # (Auto) (0.0 - 0.2 x10 3/uL) 0.01 Abs Immat Gran (auto) (0.00 - 0.03 x10 3/uL) 0. 07 H Add Manual Diff NO Immature Gran % (0.0 - 2.0 %) 0.7 Nucleated RBC % (0 - 0 %) 0.0 Nucleated RBCs # (Man) (0.0 - 0.1 x10 3/uL) 0.0 0 Microbiology: Date/Time Procedure - Status Source Growth 09/13 0455 MRSA DNA Surveillance Screen - RECD NASAL Laboratory Tests: 09/12 09/12 09/12 09/12 1606 1115 1105 0604 Chemistry POC Glucose (70 - 110 MG/DL) 150 H 68 L 170 H B-Natriuretic Peptide (0 - 100 PG/ML) 297.0 H Hematology Eos Smear Total Cells NONE SEEN 09/12 09/11 09/11 0420 2130 1933 Chemistry Sodium (134 - 147 mEq/L) 134 Potassium (3.4 - 5.0 mEq/L) 4.2 Chloride (100 - 108 mEq/L) 106 Carbon Dioxide (21 - 33 mEq/l) 20 L Anion Gap (0 - 20) 12 BUN (7 - 18 mg/dL) 31 H Creatinine (0.6 - 1.3 mg/dL) 2.4 H Glomerular Filtr Rate (90 - 95) 30.5 L Glucose (70 - 110 mg/dL) 167 H POC Glucose (70 - 110 MG/DL) 150 H Calcium (8.0 - 10.5 mg/dL) 8.2 Phosphorus (2.5 - 4.9 MG/DL) 4.4 Magnesium (1.80 - 2.40 mg/dL) 1.86 Hematology WBC (4.5 - 11.0 x10 3/uL) 8.8 RBC (4.00 - 5.60 x10 6/uL) 2.73 L Hgb (12.5 - 16.9 g/dL) 7.7 L Hct (37.5 - 50.7 %) 23.7 L MCV (81.0 - 99.0 fL) 86.8 MCH (27.0 - 33.0 pg) 28.2 MCHC (33.0 - 37.0 g/dL) 32.5 L RDW (11.5 - 14.5 %) 13.8 Plt Count (150 - 400 x10 3/uL) 248 MPV (7.0 - 9.0 fL) 9.7 H Neut % (Auto) (56.0 - 77.0 %) 72.3 Lymph % (Auto) (14.0 - 32.0 %) 15.0 Boundary % (Auto) (4.8 - 9.0 %) 7.9 Eos % (Auto) (0.3 - 3.7 %) 3.8 H Baso % (Auto) (0.0 - 2.0 %) 0.3 Neut # (Auto) (2.0 - 7.6 x10 3/uL) 6.34 Lymph # (Auto) (1.0 - 3.8 x10 3/uL) 1.31 Boundary # (Auto) (0.1 - 0.8 x10 3/uL) 0.69 Eos # (Auto) (0.0 - 0.2 x10 3/uL) 0.33 H Baso # (Auto) (0.0 - 0.2 x10 3/uL) 0.03 Abs Immat Gran (auto) (0.00 - 0.03 x10 3/uL) 0. 06 H Add Manual Diff NO Immature Gran % (0.0 - 2.0 %) 0.7 Nucleated RBC % (0 - 0 %) 0.0 Nucleated RBCs # (Man) (0.0 - 0.1 x10 3/uL) 0.0 0 Toxicology Random Vancomycin (mcg/mL) 16.7 Laboratory Tests: 09/11 09/11 09/11 09/11 09/11 1532 1445 1114 0541 0445 Chemistry Sodium (134 - 147 mEq/L) 134 Potassium (3.4 - 5.0 mEq/L) 4.3 Chloride (100 - 108 mEq/L) 105 Carbon Dioxide (21 - 33 mEq/l) 22 Anion Gap (0 - 20) 12 BUN (7 - 18 mg/dL) 26 H Creatinine (0.6 - 1.3 mg/dL) 2.0 H Glomerular Filtr Rate (90 - 95) 38.0 L Glucose (70 - 110 mg/dL) 109 POC Glucose (70 - 110 MG/DL) 93 109 127 H Calcium (8.0 - 10.5 mg/dL) 8.3 Phosphorus (2.5 - 4.9 MG/DL) 4.7 Magnesium (1.80 - 2.40 mg/dL) 1.90 Hematology WBC (4.5 - 11.0 x10 3/uL) 7.9 RBC (4.00 - 5.60 x10 6/uL) 2.94 L Hgb (12.5 - 16.9 g/dL) 8.3 L Hct (37.5 - 50.7 %) 25.8 L MCV (81.0 - 99.0 fL) 87.8 MCH (27.0 - 33.0 pg) 28.2 MCHC (33.0 - 37.0 g/dL) 32.2 L RDW (11.5 - 14.5 %) 13.7 Plt Count (150 - 400 x10 3/uL) 269 MPV (7.0 - 9.0 fL) 9.8 H Neut % (Auto) (56.0 - 77.0 %) 67.9 Lymph % (Auto) (14.0 - 32.0 %) 16.1 Boundary % (Auto) (4.8 - 9.0 %) 9.1 H Eos % (Auto) (0.3 - 3.7 %) 5.6 H Baso % (Auto) (0.0 - 2.0 %) 0.5 Neut # (Auto) (2.0 - 7.6 x10 3/uL) 5.35 Lymph # (Auto) (1.0 - 3.8 x10 3/uL) 1.27 Boundary # (Auto) (0.1 - 0.8 x10 3/uL) 0.72 Eos # (Auto) (0.0 - 0.2 x10 3/uL) 0.44 H Baso # (Auto) (0.0 - 0.2 x10 3/uL) 0.04 Abs Immat Gran (auto) (0.00 - 0.03 0.06 H x10 3/uL) Add Manual Diff NO Immature Gran % (0.0 - 2.0 %) 0.8 Nucleated RBC % (0 - 0 %) 0.0 Nucleated RBCs # (Man) (0.0 - 0.1 0.00 x10 3/uL) Toxicology Random Vancomycin (mcg/mL) 18.3 09/10 1851 Chemistry POC Glucose (70 - 110 MG/DL) 97 Laboratory Tests: 09/10 09/10 09/10 09/10 09/10 1715 1625 1430 1007 0545 Chemistry Sodium (134 - 147 mEq/L) 135 Potassium (3.4 - 5.0 mEq/L) 4.2 Chloride (100 - 108 mEq/L) 107 Carbon Dioxide (21 - 33 mEq/l) 21 Anion Gap (0 - 20) 11 BUN (7 - 18 mg/dL) 25 H Creatinine (0.6 - 1.3 mg/dL) 1.9 H Glomerular Filtr Rate (90 - 95) 40.4 L Glucose (70 - 110 mg/dL) 156 H POC Glucose (70 - 110 MG/DL) 75 58 L 213 H Calcium (8.0 - 10.5 mg/dL) 8.3 Phosphorus (2.5 - 4.9 MG/DL) 4.6 Magnesium (1.80 - 2.40 mg/dL) 1.89 Hematology WBC (4.5 - 11.0 x10 3/uL) 8.6 RBC (4.00 - 5.60 x10 6/uL) 3.08 L Hgb (12.5 - 16.9 g/dL) 8.6 L Hct (37.5 - 50.7 %) 26.7 L MCV (81.0 - 99.0 fL) 86.7 MCH (27.0 - 33.0 pg) 27.9 MCHC (33.0 - 37.0 g/dL) 32.2 L RDW (11.5 - 14.5 %) 13.8 Plt Count (150 - 400 x10 3/uL) 265 MPV (7.0 - 9.0 fL) 9.6 H Neut % (Auto) (56.0 - 77.0 %) 69.4 Lymph % (Auto) (14.0 - 32.0 %) 15.5 Boundary % (Auto) (4.8 - 9.0 %) 8.5 Eos % (Auto) (0.3 - 3.7 %) 5.5 H Baso % (Auto) (0.0 - 2.0 %) 0.4 Neut # (Auto) (2.0 - 7.6 x10 3/uL) 5.94 Lymph # (Auto) (1.0 - 3.8 x10 3/uL) 1.33 Boundary # (Auto) (0.1 - 0.8 x10 3/uL) 0.73 Eos # (Auto) (0.0 - 0.2 x10 3/uL) 0.47 H Baso # (Auto) (0.0 - 0.2 x10 3/uL) 0.03 Abs Immat Gran (auto) (0.00 - 0.03 0.06 H x10 3/uL) Add Manual Diff NO Immature Gran % (0.0 - 2.0 %) 0.7 Nucleated RBC % (0 - 0 %) 0.0 Nucleated RBCs # (Man) (0.0 - 0.1 0.00 x10 3/uL) Toxicology Random Vancomycin (mcg/mL) 15.7 09/10 09/09 0541 1911 Chemistry POC Glucose (70 - 110 MG/DL) 154 H 102 Recent Impressions: ULTRASOUND - US RETROPERITONEAL COM 09/10 1311 Report Impression - Status: SIGNED Entered: 09/10/2022 1503 IMPRESSION: No acute findings. Impression By: Hakeem Jacobo Laboratory Tests: 09/09 09/09 09/09 09/09 09/09 1606 1526 1403 1049 0524 Chemistry POC Glucose (70 - 110 MG/DL) 109 30 L 90 128 H Toxicology Random Vancomycin (mcg/mL) 15.4 09/09 09/08 09/08 0500 1955 1828 Chemistry Sodium (134 - 147 mEq/L) 136 Potassium (3.4 - 5.0 mEq/L) 4.2 Chloride (100 - 108 mEq/L) 107 Carbon Dioxide (21 - 33 mEq/l) 22 Anion Gap (0 - 20) 11 BUN (7 - 18 mg/dL) 23 H Creatinine (0.6 - 1.3 mg/dL) 1.5 H Glomerular Filtr Rate (90 - 95) 53.6 L Glucose (70 - 110 mg/dL) 125 H POC Glucose (70 - 110 MG/DL) 106 Calcium (8.0 - 10.5 mg/dL) 8.2 Phosphorus (2.5 - 4.9 MG/DL) 4.0 Magnesium (1.80 - 2.40 mg/dL) 1.89 Iron (35 - 150 mcg/dL) 10 L TIBC (260 - 445 mcg/dL) 138 L % Saturation (14 - 34 %) 7.2 L Unsat Iron Binding (mcg/dL) 128 Ferritin (23.9 - 336.2 ng/mL) 700.5 H Lactate Dehydrogenase (87 - 241 IUnits/L) 193 Hematology WBC (4.5 - 11.0 x10 3/uL) 9.2 RBC (4.00 - 5.60 x10 6/uL) 3.01 L Hgb (12.5 - 16.9 g/dL) 8.5 L Hct (37.5 - 50.7 %) 25.9 L MCV (81.0 - 99.0 fL) 86.0 MCH (27.0 - 33.0 pg) 28.2 MCHC (33.0 - 37.0 g/dL) 32.8 L RDW (11.5 - 14.5 %) 13.8 Plt Count (150 - 400 x10 3/uL) 263 MPV (7.0 - 9.0 fL) 9.7 H Neut % (Auto) (56.0 - 77.0 %) 69.1 Lymph % (Auto) (14.0 - 32.0 %) 16.1 Boundary % (Auto) (4.8 - 9.0 %) 9.2 H Eos % (Auto) (0.3 - 3.7 %) 4.7 H Baso % (Auto) (0.0 - 2.0 %) 0.4 Neut # (Auto) (2.0 - 7.6 x10 3/uL) 6.38 Lymph # (Auto) (1.0 - 3.8 x10 3/uL) 1.49 Boundary # (Auto) (0.1 - 0.8 x10 3/uL) 0.85 H Eos # (Auto) (0.0 - 0.2 x10 3/uL) 0.43 H Baso # (Auto) (0.0 - 0.2 x10 3/uL) 0.04 Abs Immat Gran (auto) (0.00 - 0.03 x10 3/uL) 0. 05 H Add Manual Diff NO Immature Gran % (0.0 - 2.0 %) 0.5 Nucleated RBC % (0 - 0 %) 0.0 Nucleated RBCs # (Man) (0.0 - 0.1 x10 3/uL) 0.0 0 Retic Count (auto) (0.3 - 2.3 %) 1.3 Laboratory Tests: 09/08 09/08 09/08 09/08 09/08 1611 1318 1045 1033 0616 Chemistry POC Glucose (70 - 110 MG/DL) 120 H 101 99 101 Toxicology Random Vancomycin (mcg/mL) 15.8 09/08 09/07 09/07 0615 2238 2110 Chemistry Sodium (134 - 147 mEq/L) 135 Potassium (3.4 - 5.0 mEq/L) 4.6 Chloride (100 - 108 mEq/L) 107 Carbon Dioxide (21 - 33 mEq/l) 22 Anion Gap (0 - 20) 10 BUN (7 - 18 mg/dL) 22 H Creatinine (0.6 - 1.3 mg/dL) 1.4 H Glomerular Filtr Rate (90 - 95) 58.3 L Glucose (70 - 110 mg/dL) 100 POC Glucose (70 - 110 MG/DL) 135 H 127 H Calcium (8.0 - 10.5 mg/dL) 8.1 Magnesium (1.80 - 2.40 mg/dL) 1.58 L Total Creatine Kinase (46 - 171 Units/L) 22 L Albumin (3.4 - 5.0 g/dL) 1.30 L Prealbumin (16.0 - 40.0 mg/dL) < 5.0 L Hematology WBC (4.5 - 11.0 x10 3/uL) 9.1 RBC (4.00 - 5.60 x10 6/uL) 3.05 L Hgb (12.5 - 16.9 g/dL) 8.5 L Hct (37.5 - 50.7 %) 26.2 L MCV (81.0 - 99.0 fL) 85.9 MCH (27.0 - 33.0 pg) 27.9 MCHC (33.0 - 37.0 g/dL) 32.4 L RDW (11.5 - 14.5 %) 13.5 Plt Count (150 - 400 x10 3/uL) 231 MPV (7.0 - 9.0 fL) 9.6 H Neut % (Auto) (56.0 - 77.0 %) 73.3 Lymph % (Auto) (14.0 - 32.0 %) 13.7 L Boundary % (Auto) (4.8 - 9.0 %) 7.2 Eos % (Auto) (0.3 - 3.7 %) 4.8 H Baso % (Auto) (0.0 - 2.0 %) 0.3 Neut # (Auto) (2.0 - 7.6 x10 3/uL) 6.64 Lymph # (Auto) (1.0 - 3.8 x10 3/uL) 1.24 Boundary # (Auto) (0.1 - 0.8 x10 3/uL) 0.65 Eos # (Auto) (0.0 - 0.2 x10 3/uL) 0.43 H Baso # (Auto) (0.0 - 0.2 x10 3/uL) 0.03 Abs Immat Gran (auto) (0.00 - 0.03 x10 3/uL) 0. 06 H Add Manual Diff NO Immature Gran % (0.0 - 2.0 %) 0.7 Nucleated RBC % (0 - 0 %) 0.0 Nucleated RBCs # (Man) (0.0 - 0.1 x10 3/uL) 0.0 0 Laboratory Tests: 09/07 09/07 09/07 09/07 09/07 1554 1137 1127 0618 0510 Chemistry Creatinine (0.6 - 1.3 mg/dL) 1.4 H POC Glucose (70 - 110 MG/DL) 112 H 51 L 42 L 13 5 H Hematology Hgb (12.5 - 16.9 g/dL) 8.4 L Hct (37.5 - 50.7 %) 26.2 L Toxicology Random Vancomycin (mcg/mL) 14.7 09/066 2108 Chemistry POC Glucose (70 - 110 MG/DL) 192 H 211 H Laboratory Tests: 09/06 09/06 09/06 09/06 09/06 1553 1547 1051 0538 0536 Chemistry Creatinine (0.6 - 1.3 mg/dL) 1.4 H POC Glucose (70 - 110 MG/DL) 119 H 92 124 H Hematology Hgb (12.5 - 16.9 g/dL) 8.6 L Hct (37.5 - 50.7 %) 26.1 L Toxicology Vancomycin Trough (10.0 - 20.0 mcg/mL) 18.9 09/05 1910 Chemistry POC Glucose (70 - 110 MG/DL) 117 H Laboratory Tests: 09/05 09/05 09/04 09/04 09/04 1149 0615 2042 1630 1557 Chemistry Sodium (134 - 147 mEq/L) 134 Potassium (3.4 - 5.0 mEq/L) 5.0 Chloride (100 - 108 mEq/L) 109 H Carbon Dioxide (21 - 33 mEq/l) 21 Anion Gap (0 - 20) 9 BUN (7 - 18 mg/dL) 24 H Creatinine (0.6 - 1.3 mg/dL) 1.3 Glomerular Filtr Rate (90 - 95) 63.7 L Glucose (70 - 110 mg/dL) 75 POC Glucose (70 - 110 MG/DL) 74 103 128 H Calcium (8.0 - 10.5 mg/dL) 7.9 L Hematology Hgb (12.5 - 16.9 g/dL) 7.1 L Hct (37.5 - 50.7 %) 22.7 L Toxicology Vancomycin Trough (10.0 - 20.0 mcg/mL) 12.8 Microbiology: Date/Time Procedure - Status Source Growth 09/04 1739 Occult Blood - COMP STOOL Recent Impressions: RADIOLOGY - XR ABDOMEN 1V (KUB) 09/04 1648 Report Impression - Status: SIGNED Entered: 09/04/2022 1757 IMPRESSION: Benign appearance of the abdomen. Impression By: [email or web address] - Roger Parra M.D . ULTRASOUND - [facility] VEIN UNI/LTD 09/05 1146 Report Impression - Status: SIGNED Entered: 09/05/2022 1333 IMPRESSION: 1. No evidence of deep vein thrombosis. 2. Complex heterogeneous hypoechoic fluid collec tion in the left calf region measuring 8.4 x 2.8 x 2.5 cm; there is no internal vascularity or peripheral hyperemia. May represe nt a hematoma. Impression By: TipABJames - Mert Ga M.D. RADIOLOGY - XR CHEST 1 V 09/05 1432 Report Impression - Status: SIGNED Entered: 09/05/2022 1515 IMPRESSION: Minimal bibasilar pulmonary opacities Impression By: Yared - Hakeem Perez Laboratory Tests: 09/04 09/04 09/04 09/04 09/04 1630 1557 1100 1031 0816 Chemistry POC Glucose (70 - 110 MG/DL) 128 H 107 99 Hematology Hgb (12.5 - 16.9 g/dL) 7.7 L Hct (37.5 - 50.7 %) 23.7 L Toxicology Vancomycin Trough (10.0 - 20.0 mcg/mL) 12.8 09/04 09/04 09/03 09/03 0721 0540 1944 1836 Chemistry POC Glucose (70 - 110 MG/DL) 87 124 H Hematology Hgb (12.5 - 16.9 g/dL) 6.8 L Hct (37.5 - 50.7 %) 21.2 L Toxicology Vancomycin Peak (30 - 40 MCG/ML) 27.4 L Microbiology: Date/Time Procedure - Status Source Growth 09/04 1037 Occult Blood - COLB STOOL 1.Diabetes mellitus type 2 uncontrolled complica tions. 2. 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 4. Sepsis 5. Prostate abscess. 6. Anemia Blood sugar 312-309 mg/dL.H/H 8./. Adjust insulin dose. PT and OT. Electronically Signed by Braxton Chapin MD on at 1724 RPT #:[id number] END OF REPORT 2022-09-15 16:24:00-00:00 [facility]ACL [facility] Progress Note REPORT#:[id number] REPORT STATUS: Signed DATE:09/15/22 TIME: 1624 PATIENT: KARMA ROWLAND UNIT #: [id number] ROOM/BED: [facility] [id number] : 63 AGE: 56 SEX: M ATTEND: Fredy Vences MD ADM AUTHOR: Kassie Avitia MD * ALL edits or amendments must be made on the el [employer]/computer document * Subjective HPI: Patient is a 56-year-old male with history of di abetes mellitus type 2 and hypertension who was initially admitted for alte red mental status and right- sided foot infection. 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 The p atient is anemic with current Hgb 7.1. He has received a total of 3 un its pRBCs during this hospitalization. KUB on 09/04 was negative for acute GI process. T he patient denies overt GIB, dark tarry stools, nausea, a bdominal pain, or vomiting. He has never had EGD or colonoscopy. 09/06: No complaints today. Hemoglobin stable. No overt GI bleed. Plan for colonoscopy and endoscopy on Thursday 09/07: No complaints today. No overt GI bleed. Pl anning for colonoscopy and endoscopy tomorrow 09/08: EGD mild gastritis. colonoscopy rectal eugenia yp s/p snare. No other abnormalities 09/09: doing well. Seen at the gym. No bleeding. 09/10: Doing well. No bleeding. tolerating diet. Movig bowels 09/11: doing well. States his leg swelling is bet ter. Tolerating diet. having normal BM 09/12: dooing well. doing work-out at the gym. To lerating diet. Normal BMs. Stable H/H 09/14-Sitting up in wheelchair, family at bedside . Denies n/v/abd pain/GIB 09/15: Doing well. H/H stable. No melena or BRBPR . No nausea or vomiting. Appetite is well Objective Physical Exam HEENT: atraumatic, normocephalic Neck: full range of motion, non-tender Respiratory: symmetric expansion, no distress Abdomen: non-tender, normal bowel sounds, soft, no distention, no guarding Extremities: right BKA Considered stroke alert: no Skin: dry Diagnosis, Assessment Plan Free Text A P: 1. Positive FOBT-and anemia: The patient denies overt GIB, dark tarry stools, nausea, abdominal pain, or vomiting. He is not o n anticoagulation therapy. -Continue PPI. The patient has never had EGD or colonoscopy prior to this admission s/p EGD and colonoscopy. EGD showed mild gastrit is. Colonoscopy showed rectal polyp that was resected by snare. no evidence of bleeding. Pathology of polyp came back as tubular adenoma. recommend repeatin g colonoscopy in 5 years Anemia likely secondary to chronic kidney diseas e. Can consider video capsule endoscopy as outpt if evidence of dropping H/H H/H remains stable Will follow along Consultants: cardiology, endocrinology, hospital ist, infectious disease, podiatry at 1625 RPT #:[id number] END OF REPORT 2022-09-15 11:52:00-00:[address] [facility] ([facility]) Infectious Dis. Progress Note REPORT#:[id number] REPORT STATUS: Signed DATE:09/15/22 TIME: 1152 PATIENT: KARMA ROWLAND UNIT #: [id number] ROOM/BED: [place] [id number] : 61 AGE: 56 SEX: M ATTEND: Fredy Vences MD ADM AUTHOR: Linda Anderson * ALL edits or amendments must be made on the [employer]/computer document * Subjective HPI: PT is a 56yr old male with h istory of diabetes mellitus type 2, hypertension who was admitted with altered mental status and righ t-sided foot infection. According to him, he noticed a blister on his right foot around 3 days prior to presentation. His foot got progressively more sw ollen and erythema extended proximally to his lateral foot and ankle. CT abd omen and pelvis with contrast is concerning for possible prostate abscess. CT of lower extremity without contrast shows extensive sof t tissue edema with mottled gas in the subcutaneous and intramuscular compartments of the foot, comp atible with gas-forming infection. Patient's blood cultures have come ba ck positive for MRSA in 2 out of 2 sets. PT has had persistent (+)Ve cx for MR 08/18- 08/22. He underwent a debridement of his foot on 08/19 and cx g rew MRSA. PT was started on Vancomycin and clindamycin on 08/18. His MRI showed a prosta te abscess. 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 Pt underwent a transrectal aspiration and unroofing of prostate abscess 08/26 and cx grew Citrobacter, Enterococcus, MRSA. 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 JIMENA done 09/02. Pt was tr ansferred to Rehab on 09/02. 09/11 doing well, no fever, no chills 09/12 doing well, working with PT in [employer] Patient reports: No: cough, diarrhea, fever, headache, nausea, sh ortness of breath, vomiting. Portions of this section wer e scribed by Jill Quintero on 09/15/22 at 1152 Objective General VS/I O: Vital Signs Date Temp Pulse Resp B/P B/P Mean Pulse Ox FiO2 09/14 97.5 81-82 18 139-156/73-82 95.2-106.7 94 -95 Last Documented: Result Date Time Pulse Ox 94 09/14 2331 B/P 139/73 09/14 2331 B/P Mean 95.2 09/14 2331 O2 Delivery Nasal cannula 09/14 2330 Temp 97.5 09/14 2331 Pulse 81 09/14 2331 Resp 18 09/14 2331 O2 Flow Rate 2 09/08 1322 Vital Signs: Date Time Temp Pulse Resp B/P B/P Pulse O2 O2 Flow FiO2 Mean Ox Delivery Rate 09/14 2330 97.5 81 18 139/73 95.2 94 Nasal cannula 09/14 1932 97.5 82 18 156/82 106.7 95 Room air 24 hour I O ending at 0700: 09/15 0700 09/14 1900 Intake Total Output Total 1000 Balance -1000 Number 0 Incontinent Voids Number Voids 0 Output, Urine 1000 PATIENT WEIGHT: Weight (lb): 165 Weight (oz): 5.55 Weight (kg): 75.000 Antibiotic start date: Antibiotic: vancomycin Start Date:09/03-09/12 Antibiotic: daptomycin Start Date:08/28-09/03, restarted on 09/12 Antibiotic: cefepime Start Date:09/01-09/12 Antibiotic: merrem Start Date:08/27-09/01, 09/12- Physical Exam General appearance: alert, awake, oriented Head/Eyes: atraumatic, clear cornea, EOMI, felisa l conjunctiva/sclera, normal eyelids/periorb, normocephalic, PERRL ENT: moist mucosal membranes, normal dentition Neck: full range of motion Cardiovascular: normal heart sounds, regular rat e rhythm Respiratory: clear to auscultation, aerating wel l Abdomen: non-tender, normal bowel sounds, soft Extremities: moves all, right BKA Left foot woun d +dressing in place 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 X 3 Considered stroke alert: no Skin: dry, intact Results Findings/Data: Laboratory Tests 09/15 09/15 09/14 09/14 0519 0515 1931 1543 Chemistry Sodium (134 - 147 mEq/L) 132 L Potassium (3.4 - 5.0 mEq/L) 4.7 Chloride (100 - 108 mEq/L) 105 Carbon Dioxide (21 - 33 mEq/l) 17 L Anion Gap (0 - 20) 15 BUN (7 - 18 mg/dL) 38 H Creatinine (0.6 - 1.3 mg/dL) 2.9 H Glomerular Filtr Rate (90 - 95) 24.3 L Glucose (70 - 110 mg/dL) 312 H POC Glucose (70 - 110 MG/DL) 309 H 193 H 60 L Calcium (8.0 - 10.5 mg/dL) 7.2 L Phosphorus (2.5 - 4.9 MG/DL) 5.7 H Magnesium (1.80 - 2.40 mg/dL) 1.96 Total Creatine Kinase (46 - 171 Units/L) 26 L Albumin (3.4 - 5.0 g/dL) 1.50 L Prealbumin (16.0 - 40.0 mg/dL) 8.0 L Laboratory Tests 09/15 0515 Hematology WBC (4.5 - 11.0 x10 3/uL) 8.7 RBC (4.00 - 5.60 x10 6/uL) 2.88 L Hgb (12.5 - 16.9 g/dL) 8.2 L Hct (37.5 - 50.7 %) 26.5 L MCV (81.0 - 99.0 fL) 92.0 MCH (27.0 - 33.0 pg) 28.5 MCHC (33.0 - 37.0 g/dL) 30.9 L RDW (11.5 - 14.5 %) 14.3 Plt Count (150 - 400 x10 3/uL) 341 MPV (7.0 - 9.0 fL) 9.1 H Neut % (Auto) (56.0 - 77.0 %) 84.9 H Lymph % (Auto) (14.0 - 32.0 %) 11.3 L Boundary % (Auto) (4.8 - 9.0 %) 3.2 L Eos % (Auto) (0.3 - 3.7 %) 0.0 L Baso % (Auto) (0.0 - 2.0 %) 0.1 Neut # (Auto) (2.0 - 7.6 x10 3/uL) 7.35 Lymph # (Auto) (1.0 - 3.8 x10 3/uL) 0.98 L Boundary # (Auto) (0.1 - 0.8 x10 3/uL) 0.28 Eos # (Auto) (0.0 - 0.2 x10 3/uL) 0.00 Baso # (Auto) (0.0 - 0.2 x10 3/uL) 0.01 Abs Immat Gran (auto) (0.00 - 0.03 x10 3/uL) 0. 04 H Add Manual Diff NO Immature Gran % (0.0 - 2.0 %) 0.5 Nucleated RBC % (0 - 0 %) 0.0 Nucleated RBCs # (Man) (0.0 - 0.1 x10 3/uL) 0.0 0 Microbiology Date/Time Procedure - Status Source Growth 09/15 514 MRSA DNA Surveillance Screen - COMP NASAL Laboratory Tests: 09/15 09/15 09/14 09/14 0519 0515 1931 1543 Chemistry Sodium (134 - 147 mEq/L) 132 L Potassium (3.4 - 5.0 mEq/L) 4.7 Chloride (100 - 108 mEq/L) 105 Carbon Dioxide (21 - 33 mEq/l) 17 L Anion Gap (0 - 20) 15 BUN (7 - 18 mg/dL) 38 H Creatinine (0.6 - 1.3 mg/dL) 2.9 H Glomerular Filtr Rate (90 - 95) 24.3 L Glucose (70 - 110 mg/dL) 312 H POC Glucose (70 - 110 MG/DL) 309 H 193 H 60 L Calcium (8.0 - 10.5 mg/dL) 7.2 L Phosphorus (2.5 - 4.9 MG/DL) 5.7 H Magnesium (1.80 - 2.40 mg/dL) 1.96 Total Creatine Kinase (46 - 171 Units/L) 26 L Albumin (3.4 - 5.0 g/dL) 1.50 L Prealbumin (16.0 - 40.0 mg/dL) 8.0 L Hematology WBC (4.5 - 11.0 x10 3/uL) 8.7 RBC (4.00 - 5.60 x10 6/uL) 2.88 L Hgb (12.5 - 16.9 g/dL) 8.2 L Hct (37.5 - 50.7 %) 26.5 L MCV (81.0 - 99.0 fL) 92.0 MCH (27.0 - 33.0 pg) 28.5 MCHC (33.0 - 37.0 g/dL) 30.9 L RDW (11.5 - 14.5 %) 14.3 Plt Count (150 - 400 x10 3/uL) 341 MPV (7.0 - 9.0 fL) 9.1 H Neut % (Auto) (56.0 - 77.0 %) 84.9 H Lymph % (Auto) (14.0 - 32.0 %) 11.3 L Boundary % (Auto) (4.8 - 9.0 %) 3.2 L Eos % (Auto) (0.3 - 3.7 %) 0.0 L Baso % (Auto) (0.0 - 2.0 %) 0.1 Neut # (Auto) (2.0 - 7.6 x10 3/uL) 7.35 Lymph # (Auto) (1.0 - 3.8 x10 3/uL) 0.98 L Boundary # (Auto) (0.1 - 0.8 x10 3/uL) 0.28 Eos # (Auto) (0.0 - 0.2 x10 3/uL) 0.00 Baso # (Auto) (0.0 - 0.2 x10 3/uL) 0.01 Abs Immat Gran (auto) (0.00 - 0.03 x10 3/uL) 0. 04 H Add Manual Diff NO Immature Gran % (0.0 - 2.0 %) 0.5 Nucleated RBC % (0 - 0 %) 0.0 Nucleated RBCs # (Man) (0.0 - 0.1 x10 3/uL) 0.0 0 09/14 09/14 09/14 09/14 1130 0736 0526 0525 Chemistry Sodium (134 - 147 mEq/L) 132 L Potassium (3.4 - 5.0 mEq/L) 4.4 Chloride (100 - 108 mEq/L) 104 Carbon Dioxide (21 - 33 mEq/l) 19 L Anion Gap (0 - 20) 14 BUN (7 - 18 mg/dL) 38 H Creatinine (0.6 - 1.3 mg/dL) 2.8 H Glomerular Filtr Rate (90 - 95) 25.4 L Glucose (70 - 110 mg/dL) 325 H POC Glucose (70 - 110 MG/DL) 137 H 290 H 334 H Calcium (8.0 - 10.5 mg/dL) 7.5 L Hematology WBC (4.5 - 11.0 x10 3/uL) 9.5 RBC (4.00 - 5.60 x10 6/uL) 2.83 L Hgb (12.5 - 16.9 g/dL) 8.0 L Hct (37.5 - 50.7 %) 25.3 L MCV (81.0 - 99.0 fL) 89.4 MCH (27.0 - 33.0 pg) 28.3 MCHC (33.0 - 37.0 g/dL) 31.6 L RDW (11.5 - 14.5 %) 14.0 Plt Count (150 - 400 x10 3/uL) 322 MPV (7.0 - 9.0 fL) 9.3 H Neut % (Auto) (56.0 - 77.0 %) 80.2 H Lymph % (Auto) (14.0 - 32.0 %) 13.9 L Boundary % (Auto) (4.8 - 9.0 %) 5.1 Eos % (Auto) (0.3 - 3.7 %) 0.0 L Baso % (Auto) (0.0 - 2.0 %) 0.1 Neut # (Auto) (2.0 - 7.6 x10 3/uL) 7.58 Lymph # (Auto) (1.0 - 3.8 x10 3/uL) 1.31 Boundary # (Auto) (0.1 - 0.8 x10 3/uL) 0.48 Eos # (Auto) (0.0 - 0.2 x10 3/uL) 0.00 Baso # (Auto) (0.0 - 0.2 x10 3/uL) 0.01 Abs Immat Gran (auto) (0.00 - 0.03 x10 3/uL) 0. 07 H Add Manual Diff NO Immature Gran % (0.0 - 2.0 %) 0.7 Nucleated RBC % (0 - 0 %) 0.0 Nucleated RBCs # (Man) (0.0 - 0.1 x10 3/uL) 0.0 0 09/13 09/13 1937 1629 Chemistry POC Glucose (70 - 110 MG/DL) 248 H 130 H Microbiology: Date/Time Procedure - Status Source Growth 09/15 514 MRSA DNA Surveillance Screen - COMP NASAL Medication(s) Ordered: Anti-Infective Agents Sig/Jan Start time Last Medication Dose Route Stop Time Status Admin Daptomycin 500 MG Q48H 09/16 1200 AC Sodium Chloride 50 ML IV 09/22 1229 Meropenem 500 MG Q8H 09/15 1200 AC Sterile Water 10 ML IV 09/22 1159 Daptomycin 500 MG Q24H 09/12 1200 DC 09/14 Sodium Chloride 50 ML IV 09/23 1229 1222 Meropenem 500 MG Q12H 09/12 1200 DC 09/15 Sterile Water 10 ML IV 09/19 1159 0003 Blood Formation,Coagulation Sig/Jan Start time Last Medication Dose Route Stop Time Status Admin Ferric Sodium 125 MG DAILY 09/09 0900 AC 09/15 Gluconate Complex IV 09/16 0959 1053 Sodium Chloride 100 ML Heparin Sodium 5,000 UNIT Q8HR 09/02 2200 AC SUBQ 10/02 2159 0505 Cardiovascular Drugs Sig/Jan Start time Last Medication Dose Route Stop Time Status Admin Carvedilol 25 MG C BK DIN 09/13 1700 AC 09/15 PO 10/13 1659 0909 Hydralazine HCl 10 MG Q6H PRN PRN 09/01 1330 AC IV 10/01 1329 Central Nervous System Agents Sig/Jan Start time Last Medication Dose Route Stop Time Status Admin Gabapentin 100 MG Q8HR 09/10 1400 AC 09/15 PO 10/10 1359 0507 Oxycodone/ 2 TAB Q4H PRN PRN 09/10 0715 AC 08/24 4 Acetaminophen PO 10/10 1300 0910 Amitriptyline HCl 25 MG BEDTIME 09/04 2100 AC 0 09/14 PO 10/04 2059 2119 Acetaminophen 650 MG Q6H PRN PRN 09/01 1330 AC PO 10/01 1329 Electrolytic, Caloric, And Daniel Sig/Jan Start time Last Medication Dose Route Stop Time Status Admin Furosemide 20 MG BLOOD-DOSE BETWEEN 09/05 1245 CKD IV 10/05 1244 Sodium Chloride 10 ML ASDIR 09/05 1245 AC IV 10/05 1244 Sodium Chloride 10 ML ASDIR PRN 09/05 0630 AC 0 09/15 IV 10/05 0629 0912 Sterile Water See Dose ASDIR PRN 09/03 2030 AC Insts (1) IRR 10/03 202 Dextrose/Water 125 ML ASDIR PRN 09/03 1515 CKD IV 10/03 1514 Dextrose/Water 250 ML ASDIR PRN 09/03 1515 CKD 09/09 IV 10/03 1514 1529 Gastrointestinal Drugs Sig/Jan Start time Last Medication Dose Route Stop Time Status Admin Pantoprazole Sodium 40 MG Q12HR 09/05 0900 AC 0 09/15 IV 10/05 0859 0911 Polyethylene Glycol 17 GM DAILY 09/05 0900 AC 0 09/15 PO 10/05 0859 0912 Sennosides 8.6 MG DAILY 09/05 0900 AC 09/15 PO 10/05 0859 0908 Bisacodyl 10 MG DAILY PRN PRN 09/01 1330 AC RECTAL 10/01 1329 Docusate Sodium 100 MG Q12H PRN PRN 09/01 1330 AC 09/13 PO 10/01 1329 1021 Ondansetron HCl 4 MG Q6H PRN PRN 09/01 1330 AC IV 10/01 1329 Hormones And Synthetic Substit Sig/Jan Start time Last Medication Dose Route Stop Time Status Admin Methylprednisolone 125 MG ONCE ONE 09/15 0745 D C 09/15 Sodium Succinate IV 09/15 0746 1053 Insulin Glargine 14 UNIT BEDTIME 09/14 2100 AC 09/14 SUBQ 10/14 2058 211 Insulin Human Lispro 7 UNIT AC 09/14 0730 AC SUBQ 10/14 0729 0913 Insulin Glargine 10 UNIT BEDTIME 09/13 2100 DC 09/13 SUBQ 10/13 2058 2121 Methylprednisolone 125 MG DAILY 1400 09/12 1400 DC 09/14 Sodium Succinate IV 09/14 1401 1609 Insulin Human Lispro 0 AC HS 09/03 1630 AC 08/24 4 SUBQ 10/03 1629 0912 Glucagon 1 MG ASDIR PRN 09/03 1515 AC IM 10/03 1514 Local Anesthetics (Parenteral) Sig/Jan Start time Last Medication Dose Route Stop Time Status Admin Lidocaine 1 PATCH DAILY 09/03 0900 AC 09/15 TOPICAL 10/03 0859 0912 Skin And Mucous Membrane Agent Sig/Jan Start time Last Medication Dose Route Stop Time Status Admin Zinc Oxide 1 APPLIC DAILY 09/04 0900 AC 09/15 TOPICAL 10/04 0859 0911 Vitamins Sig/Jan Start time Last Medication Dose Route Stop Time Status Admin Folic Acid 2 MG DAILY 09/09 0900 AC 09/15 PO 10/09 0859 0909 Multivitamins 1 TAB DAILY 09/09 0900 AC 09/15 PO 10/09 0859 0911 Dose Instructions: (1)Sterile Water: DRESSING CHANGE Microbiology: 09/15 0515 NASAL: MRSA DNA Surveillance Screen - COMP 09/13 0455 NASAL: MRSA DNA Surveillance Screen - COMP Recent Impressions: RADIOLOGY - XR CHEST 1 V 09/12 1418 Report Impression - Status: SIGNED Entered: 09/12/20222028 IMPRESSION: Worsening opacities in the right mid and lower l leonel reyes. Mildly improved left retrocardiac opacities. Impression By: [email or web address] - Abel Browne M.D. Portions of this section wer e scribed by Jill Quintero on 09/15/22 at 1152 Treatment Prophylaxis Treatment Prophylaxis Lines: PICC Portions of this section wer e scribed by Jill Quintero on 09/15/22 at 1152 Diagnosis, Assessment Plan Free Text A P: *MRSA bacteremia -Initial blood cultures from 08/18/2022 positive for MRSA in 2 out of 2 sets. -Repeat blood cultures 08/21/2022 are already po sitive for MRSA in 2 out of 2 sets, suggesting persistent high-grade bacteremi a. -TTE 08/18/2022 negative for any obvious vegetat ions. -08/28 neg -JIMENA 09/02 neg *Prostatic abscess -s/p transrectal aspiration and unroofing on 08/26 -cx MRSA, citrobacter (r-cefazolin) Enterococcus raffinosus (S-amp,pcn, vancomycin), bacteriodes *ERIKA -nephrology following; worsening *Hyponatremia *Diabetic neuropathy *Diabetes mellitus type 2 *Hypertension *anemia 09/08 -cont on Cefepime and vancomycin til 5/3 for kellen atment of Prostate abscess -follow esr and crp -EGD today 09/09 -on cefepime and vancomycin til 5/3 for treatmen t of prostate abscess 09/10 on cefepime and vancomycin til 5/3 for treatment of prostate abscess check esr and crp in am 09/11 on cefepime and vancomycin til 5/3 for t reatment of prostate abscess; if pt is discharge before 09/24 can change to oral abx 09/12 on cefepime and vancomycin til 5/3 for treatment of prostate abscess; will change to Merrem 500mg Iv Q12hrs and Daptomycin as creat is worsening 09/15 on Merrem and Daptomycin til 5/3 creat still elevated: nephrology following Consultants: cardiology, endocrinology, hospital ist, infectious disease, podiatry Portions of this section wer e scribed by Jill Quintero on 09/15/22 at 1152 at 2335 RPT #:[id number] END OF REPORT 2022-09-15 11:03:00-00:[address] [facility] ([facility]) Hospitalist Progress Note REPORT#:[id number] REPORT STATUS: Signed DATE:09/15/22 TIME: 1103 PATIENT: KARMA ROWLAND UNIT #: [id number] ROOM/BED: [place] [id number] : 63 AGE: 56 SEX: M ATTEND: Fredy eVnces MD ADM AUTHOR: Meera Chavira DO * ALL edits or amendments must be made on the el Responsive Sports/computer document * Subjective Chief complaint: No acute complaints Review of Systems All systems rev neg: except as noted Objective General VS/I O: Vital Signs: Date Time Temp Pulse Resp B/P B/P Pulse O2 O2 F low FiO2 Mean Ox Delivery Rate 09/14 2331 97.5 81 18 139/73 95.2 94 Nasal cannula 09/14 1932 97.5 82 18 156/82 106.7 95 Room air 24 hour I O ending at 0700: 09/15 0700 09/14 1900 Intake Total Output Total 1000 Balance -1000 Number 0 Incontinent Voids Number Voids 0 Output, Urine 1000 PATIENT WEIGHT: Weight (lb): 165 Weight (oz): 5.55 Weight (kg): 75.000 Medications: Active Meds + DC'd Last 24 Hrs Methylprednisolone Sodium Succinate (Solu-Medrol 125 MG Vial) 125 MG ONCE ONE IV (DC) Insulin Glargine (Semglee) 14 UNIT BEDTIME SUBQ Insulin Human Lispro (HUMALOG) 7 UNIT AC SUBQ Insulin Glargine (Semglee) 10 UNIT BEDTIME SUBQ (DC) Carvedilol (COREG) 25 MG C BK DIN PO Methylprednisolone Sodium Succinate (Solu-Medrol 125 MG Vial) 125 MG DAILY 1400 IV (DC) Daptomycin (CUBICIN 500MG) 500 MG Q24H IV Sodium Chloride (SODIUM CHLORIDE 0.9%) 50 ML Meropenem (MEROPENEM) 500 MG Q12H IV Sterile Water (WATER FOR INJECTION) 10 ML Gabapentin (NEURONTIN) 100 MG Q8HR PO Oxycodone/Acetaminophen (PERCOCET 5/325MG TAB) 2 TAB Q4H PRN PRN PO Ferric Sodium Gluconate Complex (FERRLECIT) 125 MG DAILY IV Sodium Chloride (SODIUM CHLORIDE 0.9%) 100 ML Folic Acid (FOLIC ACID) 2 MG DAILY PO Multivitamins (TAB-A-MOHAN) 1 TAB DAILY PO Furosemide (LASIX 20MG INJ) 20 MG BLOOD-DOSE BET WEEN IV (CKD) Sodium Chloride (SODIUM CHLORIDE) 10 ML ASDIR IV Pantoprazole Sodium (PROTONIX) 40 MG Q12HR IV Polyethylene Glycol (MIRALAX) 17 GM DAILY PO Sennosides (Senna Lax 8.6 MG TABLET) 8.6 MG MADALYN Y PO Sodium Chloride (SODIUM CHLORIDE) 10 ML ASDIR NV N IV Amitriptyline HCl (ELAVIL) 25 MG BEDTIME PO Zinc Oxide (ZINC OXIDE 30 GM OINTMENT) 1 APPLIC DAILY TOPICAL Sterile Water (WATER FOR IRRIGATION) DRESSING CH GELACIO ASDIR PRN IRR Insulin Human Lispro (HUMALOG) 0 AC HS SUBQ Dextrose/Water (DEXTROSE 10% IN WATER) 125 ML DIR PRN IV (CKD) Dextrose/Water (DEXTROSE 10% IN WATER) 250 ML DIR PRN IV (CKD) Glucagon (GLUCAGON) 1 MG ASDIR PRN IM Lidocaine (LIDODERM) 1 PATCH DAILY TOPICAL Heparin Sodium (HEPARIN 5000 UNITS/ML) 5,000 UNI T Q8HR SUBQ Acetaminophen (TYLENOL) 650 MG Q6H PRN PRN PO Bisacodyl (DULCOLAX) 10 MG DAILY PRN PRN RECTAL Docusate Sodium (COLACE) 100 MG Q12H PRN PRN PO Hydralazine HCl (APRESOLINE) 10 MG Q6H PRN PRN I V Ondansetron HCl (ZOFRAN) 4 MG Q6H PRN PRN IV Physical Exam General appearance: alert, a wake, oriented, no acute distress, pleasant, mental status normal, no respiratory distress Head/Eyes: atraumatic, normocephalic ENT: moist mucosal membranes Neck: no JVD Cardiovascular: normal heart sounds, regular rat e rhythm Respiratory: aerating well, clear to auscultatio n Abdomen: non-tender, normal bowel sounds Genitourinary: no bladder distention Extremities: moves all, normal capillary refill Musculoskeletal: normal inspection 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 X 3, 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 Considered stroke alert: no Skin: dry, intact Psychiatry: normal affect, normal judgment/insig ht Results Findings/Data: Laboratory Tests 09/15 09/15 09/14 09/14 09/14 0519 0515 1931 1543 1130 Chemistry Sodium (134 - 147 mEq/L) 132 L Potassium (3.4 - 5.0 mEq/L) 4.7 Chloride (100 - 108 mEq/L) 105 Carbon Dioxide (21 - 33 mEq/l) 17 L Anion Gap (0 - 20) 15 BUN (7 - 18 mg/dL) 38 H Creatinine (0.6 - 1.3 mg/dL) 2.9 H Glomerular Filtr Rate (90 - 95) 24.3 L Glucose (70 - 110 mg/dL) 312 H POC Glucose (70 - 110 MG/DL) 309 H 193 H 60 L 1 37 H Calcium (8.0 - 10.5 mg/dL) 7.2 L Phosphorus (2.5 - 4.9 MG/DL) 5.7 H Magnesium (1.80 - 2.40 mg/dL) 1.96 Total Creatine Kinase (46 - 171 Units/L) 26 L Albumin (3.4 - 5.0 g/dL) 1.50 L Prealbumin (16.0 - 40.0 mg/dL) 8.0 L Laboratory Tests 09/15 0515 Hematology WBC (4.5 - 11.0 x10 3/uL) 8.7 RBC (4.00 - 5.60 x10 6/uL) 2.88 L Hgb (12.5 - 16.9 g/dL) 8.2 L Hct (37.5 - 50.7 %) 26.5 L MCV (81.0 - 99.0 fL) 92.0 MCH (27.0 - 33.0 pg) 28.5 MCHC (33.0 - 37.0 g/dL) 30.9 L RDW (11.5 - 14.5 %) 14.3 Plt Count (150 - 400 x10 3/uL) 341 MPV (7.0 - 9.0 fL) 9.1 H Neut % (Auto) (56.0 - 77.0 %) 84.9 H Lymph % (Auto) (14.0 - 32.0 %) 11.3 L Boundary % (Auto) (4.8 - 9.0 %) 3.2 L Eos % (Auto) (0.3 - 3.7 %) 0.0 L Baso % (Auto) (0.0 - 2.0 %) 0.1 Neut # (Auto) (2.0 - 7.6 x10 3/uL) 7.35 Lymph # (Auto) (1.0 - 3.8 x10 3/uL) 0.98 L Boundary # (Auto) (0.1 - 0.8 x10 3/uL) 0.28 Eos # (Auto) (0.0 - 0.2 x10 3/uL) 0.00 Baso # (Auto) (0.0 - 0.2 x10 3/uL) 0.01 Abs Immat Gran (auto) (0.00 - 0.03 x10 3/uL) 0. 04 H Add Manual Diff NO Immature Gran % (0.0 - 2.0 %) 0.5 Nucleated RBC % (0 - 0 %) 0.0 Nucleated RBCs # (Man) (0.0 - 0.1 x10 3/uL) 0.0 0 Microbiology Date/Time Procedure - Status Source Growth 09/15 514 MRSA DNA Surveillance Screen - COMP NASAL Diagnosis, Assessment Plan Consultants: cardiology, endocrinology, hospital ist, infectious disease, podiatry Free Text DxA P Notes Free text DxA P notes: Gangrene of right foot s/p Below- knee amputatio n Prostate abscess MRSA bacteremia Hx of Diabetes, Diabetic neuropathy HTN ERIKA PLANS: Continue with PT/OT per primary Wound care as directed Hepain PPX IV iron BP improving now with increased dose: Metoprolol to 25 mg BID BS better with insulin adjus tment. Likely due to steroids started by Nephrology for AIN trend renal function closely Cr trending to 2.9, appreciate Nephrology input pain control Electronically Signed by Meera Chavira DO on 3 at 1105 RPT #:[id number] END OF REPORT 2022-09-15 09:43:00-00:00 HCACL [facility] Progress Note REPORT#:[id number] REPORT STATUS: Signed DATE:09/15/22 TIME: 942 PATIENT: KARMA ROWLAND UNIT #: [id number] ROOM/BED: [place] [address] : 61 AGE: 56 SEX: M ATTEND: Fredy Vences MD ADM AUTHOR: Mj Vences MD * ALL edits or amendments must be made on the el Responsive Sports/computer document * Subjective Chief complaint: Rehab follow-up Doing well, up in wheelchair working with therap y Reports thigh and pelvic area edema Eating 75-100% at bedside + BM Denies MCBRIDE/N/V/D/CP 14 systems reviewed and neg. except that above. History of present illness: 56 yo HAM with long h/o DM, and HTN who was admitted for fever, flulike symptoms and altered mental status on 08/18. He was doing well until about 3 days prior to admission when he noted blister to have formed o n the dorsum of his foot. His foot started progressively getting more swollen and the blisters started enlarging and extending to his lateral f oot and ankle. He started feeling weak and nauseated. He was noted to have altered mentation and was brought to our ER. He was noted to be in DKA with Blood sugars grea ter than 600. He was seen by podiatry and surgery for BLE wounds and infectio n. He was treated in ICU for sepsis and DKA. He underwent incisional and excisional debridement of right foot and right ankle by podiatry. Patient also found to have prostate abscess underwent transrectal ultrasound aspiration of a bscess and transurethral resection of prostate and unroofing of abscess b y urology Dr. Bass. Endocrinology treated the DKA and blood sugars m uch improved. Patient's right foot was not salvageable and patient und erwent right BKA by Dr. LEROY on 08/28. Patient blood cultures showe d MRSA. Patient continued on antibiotics as per ID. MRI of the pelvis and foot completed. Patient r equired multiple PRBCs for anemia. Patient was found to have a possible small hematoma of the left calf on ultrasound. He complains of pain and swelling of the left ankle. Patient hemodynamically stable and plans are to be transferred to stepdown unit. He is on heparin subcu for VTE. Af ter surgery he is now being mobilized by PT and OT. He is wearing a nestor-tech orthotic for right knee /BKA protection. Prior to admission the patient was independent living in a single-story house with his spouse with a few steps up to front and back doo r. 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 is at bedside. Patient denies nausea, vomiting, fever, chills, chest pain, shortness of breath with diz ziness. He is requiring IV Dilaudid for pain control. Mental status back to baseline. Pt is progressing slowly with therapy d/t weakness and pain, self care deficit, decreased endurance and balance, and decreased functional mobility. Pt requiring acute inpt rehab for multidiscipli nary team of nursing, therapy, and physicians. Pt is willing and able to partici- kathleen in 3 hr/day inpt rehab to d/c home safely. Pt' s prior level of function was independent. Objective General VS: Vital Signs: Date Time Temp Pulse Resp B/P B/P Pulse O2 O2 F low FiO2 Mean Ox Delivery Rate 09/14 2331 97.5 81 18 139/73 95.2 94 Nasal cannula 09/14 1932 97.5 82 18 156/82 106.7 95 Room air PATIENT WEIGHT: Weight (lb): 165 Weight (oz): 5.55 Weight (kg): 75.000 Medications: Active Meds + DC'd Last 24 Hrs Methylprednisolone Sodium Succinate (Solu-Medrol 125 MG Vial) 125 MG ONCE ONE IV (DC) Insulin Glargine (Semglee) 14 UNIT BEDTIME SUBQ Insulin Human Lispro (HUMALOG) 7 UNIT AC SUBQ Insulin Glargine (Semglee) 10 UNIT BEDTIME SUBQ (DC) Carvedilol (COREG) 25 MG C BK DIN PO Methylprednisolone Sodium Succinate (Solu-Medrol 125 MG Vial) 125 MG DAILY 1400 IV (DC) Daptomycin (CUBICIN 500MG) 500 MG Q24H IV Sodium Chloride (SODIUM CHLORIDE 0.9%) 50 ML Meropenem (MEROPENEM) 500 MG Q12H IV Sterile Water (WATER FOR INJECTION) 10 ML Gabapentin (NEURONTIN) 100 MG Q8HR PO Oxycodone/Acetaminophen (PERCOCET 5/325MG TAB) 2 TAB Q4H PRN PRN PO Ferric Sodium Gluconate Complex (FERRLECIT) 125 MG DAILY IV Sodium Chloride (SODIUM CHLORIDE 0.9%) 100 ML Folic Acid (FOLIC ACID) 2 MG DAILY PO Multivitamins (TAB-A-MOHAN) 1 TAB DAILY PO Furosemide (LASIX 20MG INJ) 20 MG BLOOD-DOSE BET WEEN IV (CKD) Sodium Chloride (SODIUM CHLORIDE) 10 ML ASDIR IV Pantoprazole Sodium (PROTONIX) 40 MG Q12HR IV Polyethylene Glycol (MIRALAX) 17 GM DAILY PO Sennosides (Senna Lax 8.6 MG TABLET) 8.6 MG MADALYN Y PO Sodium Chloride (SODIUM CHLORIDE) 10 ML ASDIR NV N IV Amitriptyline HCl (ELAVIL) 25 MG BEDTIME PO Zinc Oxide (ZINC OXIDE 30 GM OINTMENT) 1 APPLIC DAILY TOPICAL Sterile Water (WATER FOR IRRIGATION) DRESSING CH GELACIO ASDIR PRN IRR Insulin Human Lispro (HUMALOG) 0 AC HS SUBQ Dextrose/Water (DEXTROSE 10% IN WATER) 125 ML DIR PRN IV (CKD) Dextrose/Water (DEXTROSE 10% IN WATER) 250 ML DIR PRN IV (CKD) Glucagon (GLUCAGON) 1 MG ASDIR PRN IM Lidocaine (LIDODERM) 1 PATCH DAILY TOPICAL Heparin Sodium (HEPARIN 5000 UNITS/ML) 5,000 UNI T Q8HR SUBQ Acetaminophen (TYLENOL) 650 MG Q6H PRN PRN PO Bisacodyl (DULCOLAX) 10 MG DAILY PRN PRN RECTAL Docusate Sodium (COLACE) 100 MG Q12H PRN PRN PO Hydralazine HCl (APRESOLINE) 10 MG Q6H PRN PRN I V Ondansetron HCl (ZOFRAN) 4 MG Q6H PRN PRN IV Physical Exam General appearance: alert, awake, no acute distr ess Psych: alert, normal affect, oriented x 3 HEENT: anicteric, sclera clear Neck: supple, no JVD Cardiovascular: S1/S2, no murmur Respiratory: aerating well, clear bilaterally Abdomen: bowel sounds present, non-distended, so ft, non-tender Skin: no rash, R BKA HEALING. 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 3, CNII-XII intact Results Findings/Data: Laboratory Tests: 09/15 09/15 09/14 09/14 09/14 0519 0515 1931 1543 1130 Chemistry Sodium (134 - 147 mEq/L) 132 L Potassium (3.4 - 5.0 mEq/L) 4.7 Chloride (100 - 108 mEq/L) 105 Carbon Dioxide (21 - 33 mEq/l) 17 L Anion Gap (0 - 20) 15 BUN (7 - 18 mg/dL) 38 H Creatinine (0.6 - 1.3 mg/dL) 2.9 H Glomerular Filtr Rate (90 - 95) 24.3 L Glucose (70 - 110 mg/dL) 312 H POC Glucose (70 - 110 MG/DL) 309 H 193 H 60 L 1 37 H Calcium (8.0 - 10.5 mg/dL) 7.2 L Phosphorus (2.5 - 4.9 MG/DL) 5.7 H Magnesium (1.80 - 2.40 mg/dL) 1.96 Total Creatine Kinase (46 - 171 Units/L) 26 L Albumin (3.4 - 5.0 g/dL) 1.50 L Prealbumin (16.0 - 40.0 mg/dL) 8.0 L Hematology WBC (4.5 - 11.0 x10 3/uL) 8.7 RBC (4.00 - 5.60 x10 6/uL) 2.88 L Hgb (12.5 - 16.9 g/dL) 8.2 L Hct (37.5 - 50.7 %) 26.5 L MCV (81.0 - 99.0 fL) 92.0 MCH (27.0 - 33.0 pg) 28.5 MCHC (33.0 - 37.0 g/dL) 30.9 L RDW (11.5 - 14.5 %) 14.3 Plt Count (150 - 400 x10 3/uL) 341 MPV (7.0 - 9.0 fL) 9.1 H Neut % (Auto) (56.0 - 77.0 %) 84.9 H Lymph % (Auto) (14.0 - 32.0 %) 11.3 L Boundary % (Auto) (4.8 - 9.0 %) 3.2 L Eos % (Auto) (0.3 - 3.7 %) 0.0 L Baso % (Auto) (0.0 - 2.0 %) 0.1 Neut # (Auto) (2.0 - 7.6 x10 3/uL) 7.35 Lymph # (Auto) (1.0 - 3.8 x10 3/uL) 0.98 L Boundary # (Auto) (0.1 - 0.8 x10 3/uL) 0.28 Eos # (Auto) (0.0 - 0.2 x10 3/uL) 0.00 Baso # (Auto) (0.0 - 0.2 x10 3/uL) 0.01 Abs Immat Gran (auto) (0.00 - 0.03 0.04 H x10 3/uL) Add Manual Diff NO Immature Gran % (0.0 - 2.0 %) 0.5 Nucleated RBC % (0 - 0 %) 0.0 Nucleated RBCs # (Man) (0.0 - 0.1 0.00 x10 3/uL) Microbiology: 09/15 0515 NASAL: MRSA DNA Surveillance Screen - RECD Radiology data: Recent Impressions: ULTRASOUND - US RETROPERITONEAL COM 09/10 1311 Report Impression - Status: SIGNED Entered: 09/10/2022 1503 IMPRESSION: No acute findings. Impression By: Hakeem Jacobo RADIOLOGY - XR CHEST 1 V 09/12 1418 Report Impression - Status: SIGNED Entered: 09/12/20222028 IMPRESSION: Worsening opacities in the right mid and lower l leonel reyes. Mildly improved left retrocardiac opacities. Impression By: [email or web address] - Abel Browne M.D. 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 Leroy Significant impairment in self-care, ADLs and fu nctional mobility Impaired mobility and gait Acute postoperative pain right BKA Diabetic polyneuropathy DKA, DM 2, poorly controlled, A1c greater than 1 4 PAD MRSA bacteremia/sepsis-treated on acute ERIKA Severe hyponatremia-resolved HTN Acute on chronic anemia requiring multiple trans fusions, possible GI bleed Left calf hematoma Edema and clinical arthritis left ankle Early decubitus to left heel/DTI dorsal left mid foot Prostatic abscess 08/26: S/p transrectal ultrasound aspiration of ab scess and transurethral resection of prostate and unroofing of abscess 09/12: Echo: EF 55-59%, grade 1 diastolic dysfunc tion 09/02: JIMENA negative for vegetation MRSA OF NARES 09/08:s/p EGD and colonoscopy. EGD showed mild ga stritis. Colonoscopy showed rectal polyp that was resect ed by snare (tubular adenoma)-repeat colonoscopy in 5 years Plan: -PLOF: Independent with transfers and gait -Amputee rehab program -Continue PT and OT -15/12 rehabilitation nursing care. -Case management for safe discharge planning. -Decubitus prevention -Early decubitus to left heel/DTI dorsal left mi dfoot-zinc oxide to the foot, foam, offloading, podiatry managing -DVT prophylaxis-subcutaneous heparin -Strict fall and safety precautions -Work on bed mobility, transfer training, ADLs, pre-gait and gait exercises -Increase endurance and strength -Monitor pain with therapies -OOB to chair -Monitor p.o. intake and nut rition, albumin 1.3, prealbumin less than 5, dietary consultation, protein supplements to promote hea ling -Diabetes-A1c 14, tight glycemia control- endocr ine on board, insulin adjustments -Endocrinology, ID, podiatry, cardiology, IM con sulted -Pain management adjusting pain medications -Anemia, patient required multiple units of PRBC s on acute, FOBT positive -IV Protonix-consult GI-seri al H H-no evidence of gross bleeding-discussed with Dr. Trinidad -Constipation-abdominal [id number] S enokot and MiraLAX, DSP -Right MWZ-owcphkm-agsqwdcf resolved, dr martinez changed wfhjg-vsficll-mosvonkm NESTOR-TECH -MRSA OF NARES on Bactroban protocol -LLE edema-venous Doppler wi th complex heterogeneous hypoechoic fluid collection in the left calf region measuring 8.4, 2.8, 2.5 cm suggestive of hematoma. On low-dose Lasix. Oralia wrap LLE -LE edema could be related to hypoalbuminemia le ading to third spacing-edema improving -Generalized edema-some shor tness of breath and abdominal distention-cardiology gave a dose of IV Lasix-monitor urine output, da jaz weights-SOB resolved -09/05-venous Doppler of LLE-negative for DVT-Oralia wrap dressing and elevation -Anemia-hemoglobin 8.3, 7.7, 8.2, transfused 2 u nits of PRBC on 09/05 -09/08: s/p EGD and colonoscopy. EGD showed mild gastritis. Colonoscopy showed rectal polyp that was resected by snare. Anemia likely secondary to chronic kidney disease. Consult renal. -Pathology of polyp came back as tubular adenoma . recommend repeating colonoscopy in 5 years as per GI -Consider video capsule endoscopy as outpt if ev idence of dropping H/H -Renal ultrasound negative -09/15/2022 we will give additional dose of Solu- Medrol 125 mg IV today, laboratory this morning show ed sodium 132, potassium 4.7, CO2 17, chloride 105, BUN 38, creatinine 2.9, glucose 312, hem oglobin 8.2, platelet 341, blood count 8.7, needs better blood sugar control, if creati nine does not start improving the next couple days will plan for kidney biopsy -as per renal -on Merrem and Daptomycin til 09/24 as per ID -Lasix discontinued. -On Solu-Medrol -Noted LLE swelling (not new ) and low albumin. may benefit from albumin infusion + Lasix -CXR-worsening opacities in the right mid and lo wer lung field. Improved left retrocardiac opacities -BNP 297 -09/12: Echo-EF 55-60%, indet erminate diastolic function parameters as per cardio -Advance therapies as tolerated-discusse d treatment plan with patient and -Patient progressing well in therapy. Patient wi th improved transfers and endurance. -May need kidney biopsy -Discussed with patient and about renal iss ues -Team conference-making good functional progress Progress: ENERGY CONSERVATION, WC MOBILITY, AND BRACE POSITIONING. PATIENT MIN A FOR DONNIN G SHORTS AND SBA FOR SUPINE TO SIT. PATIENT SET UP FOR SLIDE BOARD TRANSFER FROM BED TO . PATIENT PROPELLED WC 2 00 ' X 2 WITH MOD I USING PO UE TO PROPEL. PATIENT TOLERATED SEATED EXERCISE X 20 IN ALL PLANES WITH 3# ANKLE WEIGH T. PATIENT PERFROMED PUSH UP ON WC X 5 WITH VC FOR SEQUEINCING AND SBA. PATIENT MIN A FOR SIT TO STAND X 5 IN PARALLEL BARS. PM R Please see team note. Plan and goals discussed with the patient. I agree with the teams finding ELOS- [09/19] DC-Home with -Home health DME-bedside commode, sliding board, wheelchair, Total time 33 minutes greater than 50% of the ti me spent examining patient, discussing with patient and about impaired renal function, may need kidney biopsy, medical issues, anemia, amputee rehab, plan of care, goals, therapies, progress, labs, medications. EMR and MAR is revi ewed. All questions answered Consultants: cardiology, endocrinology, hospital ist, infectious disease, podiatry Rehab attestation: Face to face exam completed. Treatment plan disc ussed with patient. Meets continued stay criteria. Agree with interdiscipl inary treatment plan. at 1336 RPT #:[id number] END OF REPORT 2022-09-15 09:41:00-00:00 [facility] ([facility]) Cardiology Progress Note REPORT#:[id number] REPORT STATUS: Signed DATE:09/15/22 TIME: 940 PATIENT: KARMA ROWLAND UNIT #: [id number] ROOM/BED: [place] [address] : 63 AGE: 56 SEX: M ATTEND: Fredy Vences MD ADM AUTHOR: Rohit Benitez CLAY MILLER * ALL edits or amendments must be made on the [employer]/computer document * Rohit Benitez 09/15/22 0941: Subjective Chief complaint: weakness Free Text Subj Notes Free Text Subj Notes: Patient seen and evaluated. Chart reviewed. No n ew symptoms, feeling well. Denies chest pain, palpitations, or shortness of breath. Objective General VS/I O: 24 hour I O ending at 0700: 09/15 0700 09/14 1900 Intake Total Output Total 1000 Balance -1000 Number 0 Incontinent Voids Number Voids 0 Output, Urine 1000 Vital Signs: Date Time Temp Pulse Resp B/P B/P Pulse O2 O2 F low FiO2 Mean Ox Delivery Rate 09/14 2331 97.5 81 18 139/73 95.2 94 Nasal cannula 09/14 1932 97.5 82 18 156/82 106.7 95 Room air PATIENT WEIGHT: Weight (lb): 165 Weight (oz): 5.55 Weight (kg): 75.000 Medications: Active Meds + DC'd Last 24 Hrs Methylprednisolone Sodium Succinate (Solu-Medrol 125 MG Vial) 125 MG ONCE ONE IV (DC) Insulin Glargine (Semglee) 14 UNIT BEDTIME SUBQ Insulin Human Lispro (HUMALOG) 7 UNIT AC SUBQ Insulin Glargine (Semglee) 10 UNIT BEDTIME SUBQ (DC) Carvedilol (COREG) 25 MG C BK DIN PO Methylprednisolone Sodium Succinate (Solu-Medrol 125 MG Vial) 125 MG DAILY 1400 IV (DC) Daptomycin (CUBICIN 500MG) 500 MG Q24H IV Sodium Chloride (SODIUM CHLORIDE 0.9%) 50 ML Meropenem (MEROPENEM) 500 MG Q12H IV Sterile Water (WATER FOR INJECTION) 10 ML Gabapentin (NEURONTIN) 100 MG Q8HR PO Oxycodone/Acetaminophen (PERCOCET 5/325MG TAB) 2 TAB Q4H PRN PRN PO Ferric Sodium Gluconate Complex (FERRLECIT) 125 MG DAILY IV Sodium Chloride (SODIUM CHLORIDE 0.9%) 100 ML Folic Acid (FOLIC ACID) 2 MG DAILY PO Multivitamins (TAB-A-MOHAN) 1 TAB DAILY PO Furosemide (LASIX 20MG INJ) 20 MG BLOOD-DOSE BET WEEN IV (CKD) Sodium Chloride (SODIUM CHLORIDE) 10 ML ASDIR IV Pantoprazole Sodium (PROTONIX) 40 MG Q12HR IV Polyethylene Glycol (MIRALAX) 17 GM DAILY PO Sennosides (Senna Lax 8.6 MG TABLET) 8.6 MG MADALYN Y PO Sodium Chloride (SODIUM CHLORIDE) 10 ML ASDIR NV N IV Amitriptyline HCl (ELAVIL) 25 MG BEDTIME PO Zinc Oxide (ZINC OXIDE 30 GM OINTMENT) 1 APPLIC DAILY TOPICAL Sterile Water (WATER FOR IRRIGATION) DRESSING CH GELACIO ASDIR PRN IRR Insulin Human Lispro (HUMALOG) 0 AC HS SUBQ Dextrose/Water (DEXTROSE 10% IN WATER) 125 ML DIR PRN IV (CKD) Dextrose/Water (DEXTROSE 10% IN WATER) 250 ML DIR PRN IV (CKD) Glucagon (GLUCAGON) 1 MG ASDIR PRN IM Lidocaine (LIDODERM) 1 PATCH DAILY TOPICAL Heparin Sodium (HEPARIN 5000 UNITS/ML) 5,000 UNI T Q8HR SUBQ Acetaminophen (TYLENOL) 650 MG Q6H PRN PRN PO Bisacodyl (DULCOLAX) 10 MG DAILY PRN PRN RECTAL Docusate Sodium (COLACE) 100 MG Q12H PRN PRN PO Hydralazine HCl (APRESOLINE) 10 MG Q6H PRN PRN I V Ondansetron HCl (ZOFRAN) 4 MG Q6H PRN PRN IV Physical Exam General appearance: alert, awake, oriented Neck: no bruit/NL carotids, no JVD Cardiovascular: CV assessment: regular rate and rhythm, no ecto py, no gallop Respiratory: clear to auscultation, no distress Abdomen: soft, non-tender Lower extremity: LE assessment: edema, normal temperature 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 X 3 Considered stroke alert: no Wound/incision: Location: right bka Psychiatry: normal affect, normal judgment/insig ht, normal mood Results Findings/Data: Laboratory Tests 09/15 09/15 09/14 09/14 09/14 0519 0515 1931 1543 1130 Chemistry Sodium (134 - 147 mEq/L) 132 L Potassium (3.4 - 5.0 mEq/L) 4.7 Chloride (100 - 108 mEq/L) 105 Carbon Dioxide (21 - 33 mEq/l) 17 L Anion Gap (0 - 20) 15 BUN (7 - 18 mg/dL) 38 H Creatinine (0.6 - 1.3 mg/dL) 2.9 H Glomerular Filtr Rate (90 - 95) 24.3 L Glucose (70 - 110 mg/dL) 312 H POC Glucose (70 - 110 MG/DL) 309 H 193 H 60 L 1 37 H Calcium (8.0 - 10.5 mg/dL) 7.2 L Phosphorus (2.5 - 4.9 MG/DL) 5.7 H Magnesium (1.80 - 2.40 mg/dL) 1.96 Total Creatine Kinase (46 - 171 Units/L) 26 L Albumin (3.4 - 5.0 g/dL) 1.50 L Prealbumin (16.0 - 40.0 mg/dL) 8.0 L Laboratory Tests 09/15 0515 Hematology WBC (4.5 - 11.0 x10 3/uL) 8.7 RBC (4.00 - 5.60 x10 6/uL) 2.88 L Hgb (12.5 - 16.9 g/dL) 8.2 L Hct (37.5 - 50.7 %) 26.5 L MCV (81.0 - 99.0 fL) 92.0 MCH (27.0 - 33.0 pg) 28.5 MCHC (33.0 - 37.0 g/dL) 30.9 L RDW (11.5 - 14.5 %) 14.3 Plt Count (150 - 400 x10 3/uL) 341 MPV (7.0 - 9.0 fL) 9.1 H Neut % (Auto) (56.0 - 77.0 %) 84.9 H Lymph % (Auto) (14.0 - 32.0 %) 11.3 L Boundary % (Auto) (4.8 - 9.0 %) 3.2 L Eos % (Auto) (0.3 - 3.7 %) 0.0 L Baso % (Auto) (0.0 - 2.0 %) 0.1 Neut # (Auto) (2.0 - 7.6 x10 3/uL) 7.35 Lymph # (Auto) (1.0 - 3.8 x10 3/uL) 0.98 L Boundary # (Auto) (0.1 - 0.8 x10 3/uL) 0.28 Eos # (Auto) (0.0 - 0.2 x10 3/uL) 0.00 Baso # (Auto) (0.0 - 0.2 x10 3/uL) 0.01 Abs Immat Gran (auto) (0.00 - 0.03 x10 3/uL) 0. 04 H Add Manual Diff NO Immature Gran % (0.0 - 2.0 %) 0.5 Nucleated RBC % (0 - 0 %) 0.0 Nucleated RBCs # (Man) (0.0 - 0.1 x10 3/uL) 0.0 0 Laboratory Tests 09/15 0515 Chemistry Magnesium (1.80 - 2.40 mg/dL) 1.96 Diagnosis, Assessment Plan Consultants: cardiology, endocrinology, hospital ist, infectious disease, podiatry Free Text DxA P Notes Free Text DxA P Notes: Impression: 1. Debility 2. Infected right foot status post BKA 3. Bacteremia 4. Diabetes 5. Hypertension 6. Anemia 7. Acute Diastolic CHF 07/2022: Echocardiogram with normal LVEF, grade 1 diastolic dysfunction, mildly dilated LA, and no significant valvular abnormal ities Recommendation: Patient initially presented with DKA and sepsis. Diagnosed with right foot infection, underwent I D, now status post BKA. P atient had persistent bacteremia with MRSA, underwent JIMENA with negativ e findings of endocarditis. Patient now transferred to [facility] for physical therapy. Known cardiac history of hypertension and hyperlipide renetta. Vital signs stable. Echocardiogram with normal LVEF, grade 1 diastolic dysfunction, mildly dila carlos LA, and no significant valvular abnormalities. Continue to monitor bloo d pressure trend. Continue wound care and IV antibiotic therapy. Continue P T/OT. Supportive care. 09/04: Patient complaining of shortness of breath, abdominal distention and lower extremity edema. Renal function and electrolytes stable. Will give one-time dose of IV Lasix 40 mg. Blood pressure stable. P ending abdominal x-ray. Monitor intake and output. Check BMP in the morn ing. Supportive care. Plan of care discussed with patient, RN and Dr. Parham. 09/05: Patient responded well to IV Lasix , good urine output and improvement in shortness of breath. Chest x-ray ordered . Currently on Lasix 20 mg p.o. daily. Continue monitor renal function and electrolyte s. Pending lower extremity Doppler for lower extremity edema. Continue PT/O T. Supportive care. Plan of care discussed with patient, RN and Dr. Parham. 09/08: Blood pressure has been elevated, started on Coreg 3.125 mg twice daily. Continue monitor blood pressure trend and adjust medication as needed. Still having left lower extremity edema, venous Dopple r negative for DVT. continue gentle diuresis with Lasix 20 mg p.o. daily. Rec ommend Oralia wrap. Patient remains anemic, plan for EGD/colonoscopy today. Supportive care. Plan of care discussed with patient, family, RN and Dr. Parham . 09/09: Patient doing well status post EGD /colonoscopy, negative findings for GI bleed. Blood pressure improving, increased on Co reg to 12.5 mg twice daily. Elevated creatinine noted, nephrology following. No new cardiac complaint. Continue wound care. Continue PT/OT. Supportive care. Plan of care discussed with patient, RN and Dr. Parham. 09/10: Blood pressure remained stable on current regimen of Coreg. Patient continue to have left lower extremity edema. Cur rently on Lasix 20 mg daily. Creatinine 1.9 today, continue to monito r. Patient's albumin level was 1.3, it is possible that patient's lower extremity edema could be related to hypoalbuminemia leading to third spacing. Contin ue PT/OT. Supportive care. Plan of care discussed with patient, RN and Dr. Parham. 4/20: Patient doing well from cardiac standpoint . Blood pressure well controlled. Improvement in lower extremity edema with elevating leg while in bed. Creatinine 2.0 today. Denies shortness of b reath. Will hold diuretic for now and monitor renal function. Supportive care. Plan of care discussed with patient, RN and Dr. Parham. 09/12: Creatinine remains elevated at 2.4 today, antibiotic regimen also being adjusted. Patient still with lower extremity rose ma and rales on physical examination. Will check chest x-ray and limited echocardiogram for further evaluation. Check BNP. Continue hold diuretic fo r now. Supportive care. Plan of care discussed with patient, RN and Dr. Parham . 09/15: Repeat echocardiogram showed LVEF of 55 to 60%, no regional wall motion abnormalities, left ventricu lar diastolic function parameters are indeterminate, mildly dilated LA, and no pericardial effusion. BNP elevated 297. Continue to hold diuretic due to Elevate d creatinine, nephrology following and may consider renal biopsy. Continue to monitor fluid volume s tatus. Overall improvement in lower extremity with Oralia wrap. Continue physical therapy. Supportive care. Plan of care discussed with patient, RN and Dr. Parham. Gianni Parham 09/18/22 0859: Diagnosis, Assessment Plan Additional comments: Patient was seen and examined at bedside , agree with above assessment and plan as documented by nurse practitioner. Will follow . Electronically Signed by Rohit Benitez NP on 0 09/15/22 at 1654 at 0902 RPT #:[id number] END OF REPORT 2022-09-15 07:33:00-00:00 [facility]ph[facility] Progress Note REPORT#:[id number] REPORT STATUS: Signed DATE:09/15/22 TIME: 732 PATIENT: KARMA ROWLAND UNIT #: [id number] ROOM/BED: [place] [address] : 63 AGE: 56 SEX: M ATTEND: Fredy Vences MD ADM AUTHOR: Barrera Ramírez MD * ALL edits or amendments must be made on the [employer]/computer document * Subjective Chief complaint: Infected foot HPI: Patient seen and evaluated on 09/09/2022, note filibertojanneth, records reviewed and orders placed on 09/08/2022, 56-year-old male with history of diabetes mellitus type 2, hypertension and per ipheral vascular disease who was initially admitted to acute care with altered mental status and rig ht foot infection/gangrene, 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 Patient had persistent anemia requiring blood transfusion. H is fecal occult blood was positive and his creatinine was 1.2 and increase d to 1.4 today, laboratories today showed hemoglobin 8.5, platelet 231, blood count 9.1, sodium 135, potassium 4.6, CO2 22, BUN 22, creatinin e 1.4. Renal consult was requested for evaluation management of pako vated BUN and creatinine and if his decreased GFR is contributing to his anemia. Patient reports: Yes: complaints. Comments: Patient seen and evaluated, HPI no change from i nitial, feels okay. Review of Systems Constitutional: Reports: fatigue. Denies: chills, fever. Skin: Denies: abrasion, bruising. Allergy/Immun: Denies: hives, itching. Eyes: Denies: redness, discharge. ENT: Denies: ear drainage, ear ringing. Respiratory: Denies: hemoptysis, SOB. Cardiovascular: Denies: chest pain. Objective General VS/I O: Vital Signs: Date Time Temp Pulse Resp B/P B/P Pulse O2 O2 Flow FiO2 Mean Ox Delivery Rate 09/14 2331 36.4 81 18 139/73 95.2 94 Nasal cannula 09/14 1932 36.4 82 18 156/82 106.7 95 Room air 24 hour I O ending at 0700: 09/15 0700 09/14 1900 Intake Total Output Total 1000 Balance -1000 Number 0 Incontinent Voids Number Voids 0 Output, Urine 1000 PATIENT WEIGHT: Weight (lb): 165 Weight (oz): 5.55 Weight (kg): 75.000 Medications Active Meds + DC'd Last 24 Hrs Insulin Glargine (Semglee) 14 UNIT BEDTIME SUBQ Insulin Human Lispro (HUMALOG) 7 UNIT AC SUBQ Insulin Glargine (Semglee) 10 UNIT BEDTIME SUBQ (DC) Carvedilol (COREG) 25 MG C BK DIN PO Methylprednisolone Sodium Succinate (Solu-Medrol 125 MG Vial) 125 MG DAILY 1400 IV (DC) Daptomycin (CUBICIN 500MG) 500 MG Q24H IV Sodium Chloride (SODIUM CHLORIDE 0.9%) 50 ML Meropenem (MEROPENEM) 500 MG Q12H IV Sterile Water (WATER FOR INJECTION) 10 ML Gabapentin (NEURONTIN) 100 MG Q8HR PO Oxycodone/Acetaminophen (PERCOCET 5/325MG TAB) 2 TAB Q4H PRN PRN PO Ferric Sodium Gluconate Complex (FERRLECIT) 125 MG DAILY IV Sodium Chloride (SODIUM CHLORIDE 0.9%) 100 ML Folic Acid (FOLIC ACID) 2 MG DAILY PO Multivitamins (TAB-A-MOHAN) 1 TAB DAILY PO Furosemide (LASIX 20MG INJ) 20 MG BLOOD-DOSE BET WEEN IV (CKD) Sodium Chloride (SODIUM CHLORIDE) 10 ML ASDIR IV Pantoprazole Sodium (PROTONIX) 40 MG Q12HR IV Polyethylene Glycol (MIRALAX) 17 GM DAILY PO Sennosides (Senna Lax 8.6 MG TABLET) 8.6 MG MADALYN Y PO Sodium Chloride (SODIUM CHLORIDE) 10 ML ASDIR NV N IV Amitriptyline HCl (ELAVIL) 25 MG BEDTIME PO Zinc Oxide (ZINC OXIDE 30 GM OINTMENT) 1 APPLIC DAILY TOPICAL Sterile Water (WATER FOR IRRIGATION) DRESSING CH GELACIO ASDIR PRN IRR Insulin Human Lispro (HUMALOG) 0 AC HS SUBQ Dextrose/Water (DEXTROSE 10% IN WATER) 125 ML DIR PRN IV (CKD) Dextrose/Water (DEXTROSE 10% IN WATER) 250 ML DIR PRN IV (CKD) Glucagon (GLUCAGON) 1 MG ASDIR PRN IM Lidocaine (LIDODERM) 1 PATCH DAILY TOPICAL Heparin Sodium (HEPARIN 5000 UNITS/ML) 5,000 UNI T Q8HR SUBQ Acetaminophen (TYLENOL) 650 MG Q6H PRN PRN PO Bisacodyl (DULCOLAX) 10 MG DAILY PRN PRN RECTAL Docusate Sodium (COLACE) 100 MG Q12H PRN PRN PO Hydralazine HCl (APRESOLINE) 10 MG Q6H PRN PRN I V Ondansetron HCl (ZOFRAN) 4 MG Q6H PRN PRN IV Physical Exam General appearance: alert, no acute distress Head/eyes: atraumatic, normocephalic ENT: normal nose Neck: non-tender, supple/no meningismus Cardiovascular: normal heart sounds, no rub Respiratory: aerating well, symmetric expansion Abdomen: non-tender, soft Genitourinary: no flank pain Extremities: non-tender, no edema Musculoskeletal: no CVA tenderness, no tendernes s 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, 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 Considered stroke alert: no Skin: dry, intact Results Findings/Data: Laboratory Tests 09/15 09/14 09/14 09/14 09/14 0519 1931 1543 1130 0736 Chemistry POC Glucose (70 - 110 MG/DL) 309 H 193 H 60 L 1 37 H 290 H 09/14 09/14 09/13 09/13 09/13 0526 0525 7 1629 1105 Chemistry Sodium (134 - 147 mEq/L) 132 L Potassium (3.4 - 5.0 mEq/L) 4.4 Chloride (100 - 108 mEq/L) 104 Carbon Dioxide (21 - 33 mEq/l) 19 L Anion Gap (0 - 20) 14 BUN (7 - 18 mg/dL) 38 H Creatinine (0.6 - 1.3 mg/dL) 2.8 H Glomerular Filtr Rate (90 - 95) 25.4 L Glucose (70 - 110 mg/dL) 325 H POC Glucose (70 - 110 MG/DL) 334 H 248 H 130 H 307 H Calcium (8.0 - 10.5 mg/dL) 7.5 L 09/13 09/13 09/12 09/12 09/12 0543 0455 2016 160 1115 Chemistry Sodium (134 - 147 mEq/L) 133 L Potassium (3.4 - 5.0 mEq/L) 4.6 Chloride (100 - 108 mEq/L) 107 Carbon Dioxide (21 - 33 mEq/l) 19 L Anion Gap (0 - 20) 12 BUN (7 - 18 mg/dL) 28 H Creatinine (0.6 - 1.3 mg/dL) 2.7 H Glomerular Filtr Rate (90 - 95) 26.5 L Glucose (70 - 110 mg/dL) 241 H POC Glucose (70 - 110 MG/DL) 258 H 223 H 150 H Calcium (8.0 - 10.5 mg/dL) 7.8 L Phosphorus (2.5 - 4.9 MG/DL) 4.7 Magnesium (1.80 - 2.40 mg/dL) 1.92 B-Natriuretic Peptide (0 - 100 PG/ML) 297.0 H 09/12 1105 Chemistry POC Glucose (70 - 110 MG/DL) 68 L Laboratory Tests 09/14 09/13 09/12 0525 0455 1115 Hematology WBC (4.5 - 11.0 x10 3/uL) 9.5 9.8 RBC (4.00 - 5.60 x10 6/uL) 2.83 L 2.90 L Hgb (12.5 - 16.9 g/dL) 8.0 L 8.2 L Hct (37.5 - 50.7 %) 25.3 L 25.4 L MCV (81.0 - 99.0 fL) 89.4 87.6 MCH (27.0 - 33.0 pg) 28.3 28.3 MCHC (33.0 - 37.0 g/dL) 31.6 L 32.3 L RDW (11.5 - 14.5 %) 14.0 13.7 Plt Count (150 - 400 x10 3/uL) 322 288 MPV (7.0 - 9.0 fL) 9.3 H 10.0 H Neut % (Auto) (56.0 - 77.0 %) 80.2 H 85.3 H Lymph % (Auto) (14.0 - 32.0 %) 13.9 L 10.4 L Boundary % (Auto) (4.8 - 9.0 %) 5.1 3.5 L Eos % (Auto) (0.3 - 3.7 %) 0.0 L 0.0 L Baso % (Auto) (0.0 - 2.0 %) 0.1 0.1 Neut # (Auto) (2.0 - 7.6 x10 3/uL) 7.58 8.34 H Lymph # (Auto) (1.0 - 3.8 x10 3/uL) 1.31 1.02 Boundary # (Auto) (0.1 - 0.8 x10 3/uL) 0.48 0.34 Eos # (Auto) (0.0 - 0.2 x10 3/uL) 0.00 0.00 Baso # (Auto) (0.0 - 0.2 x10 3/uL) 0.01 0.01 Abs Immat Gran (auto) (0.00 - 0.03 x10 3/uL) 0. 07 H 0.07 H Add Manual Diff NO NO Immature Gran % (0.0 - 2.0 %) 0.7 0.7 Nucleated RBC % (0 - 0 %) 0.0 0.0 Nucleated RBCs # (Man) (0.0 - 0.1 x10 3/uL) 0.0 0 0.00 Eos Smear Total Cells NONE SEEN Microbiology Date/Time Procedure - Status Source Growth 09/13 0455 MRSA DNA Surveillance Screen - COMP NASAL Laboratory Tests 09/15 09/14 09/14 09/14 09/14 0519 1931 1543 1130 0736 Chemistry POC Glucose (70 - 110 MG/DL) 309 H 193 H 60 L 1 37 H 290 H Diagnosis, Assessment Plan Free Text A P: Patient seen and evaluated, discussed with care team, images and laboratories reviewed. Diabetes mellitus: Insulin: Monitor bloo d sugar closely and adjust medications as needed, followed by endocrinology. Hypertension: Blood pressure is not well controlled, increase Coreg to 12.5 mg p.o. 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 We will check serum immu nofixation. Acute kidney injury: We will check renal bladder ultrasound, check postvoid residual, check urine protein creatinine ratio Hypomagnesemia: We will supplement 09/10/2022 laboratory this mo rning showed sodium 135, potassium 4.2, CO2 21, BUN 25, creatinine 1.9 continues to worsen, etiology unclear, however his development some eosinophili a not sure if he is developing AIN, suggest changing cefepime to a different class of antibiotic if p ossible, will check renal bladder ultrasound 09/11/2022 laboratory this mo rning showed sodium 134, potassium 4.3, CO2 22, BUN 26, creatinine 2 up from 1.9, hopefully creatini ne is plateauing, renal ultrasound negative. 09/12/2022 laboratory this mo rning showed sodium 134, potassium 4.2, CO2 20, BUN 31, creatinine 2.4 continues to worsen, discussed with ID, AIN is probably the etiology of the unexplained deterioration of his renal function, antibiotics to be adjusted by infectious disease, will give Solu-Medrol 125 mg IV daily for 3 days. Significant lower extremity edema, will st art Lasix 20 mg p.o. twice daily. 09.13.22: pt was seen and examined. Very thirsty. serum creatinine is worsening today. Vancomycin was stopped yesterday and Solu medrol was started. Mild hypovolemic hyponatremia. Will DC lasix and monitor his renal functions. BP is well controlled. 09.14.22: pt was seen and exa mined. Feels better but still thirsty. I stopped his lasix. will start NS at 75 c c for one Leter only. serum creatinine is improving. Received three doses of Solu Medrol a well. BP i s on the higher side, likely secondary to steroids. will monitor for now. mild hypovelmic hyponatremia. also could be secondary to hyperglycemia. 09/15/2022 we will give additional dose of Solu-M edrol 125 mg IV today, laboratory this morning show ed sodium 132, potassium 4.7, CO2 17, chloride 105, BUN 38, creatinine 2.9, glucose 312, hem oglobin 8.2, platelet 341, blood count 8.7, needs better blood sugar control, if creati nine does not start improving the next couple days will plan for kidney biopsy Consultants: cardiology, endocrinology, hospital ist, infectious disease, podiatry Electronically Signed by Barrera Ramírez MD on at 1021 RPT #:[id number] END OF REPORT 2022-09-15 06:25:00-00:[address] [facility] ([facility]) Pain Management Progress Note REPORT#:[id number] REPORT STATUS: Signed DATE:09/15/22 TIME: 624 PATIENT: KARMA ROWLAND UNIT #: [id number] ROOM/BED: [place] [address] : 63 AGE: 56 SEX: M ATTEND: Fredy Vences MD ADM AUTHOR: Charlie Quiroga CLAY MILLER * ALL edits or amendments must be made on the el [employer]/computer document * Charlie Quiroga 09/15/22 0625: Subjective Chief complaint: Patient seen and examined. Chart/MAR reviewed. Patient is currently with good pain control. Med ication alleviates pain when taken. No side effects noted with the pain medic ation at this time. Patient being seen for Acute postoperative pain, right foot and ankle gangrene, requiring BKA, Constipation Patient is still requiring medications to help w ith managing current problems. Patient is requiring IV narcotics to help manage breakthrough pain No fever/chills, chest pain, orthopnea, nausea/v omiting, pruritus, or hallucinations. 14 point ROS undertaken unremarkable except as n oted Objective General VS/I O: Vital Signs Date Temp Pulse Resp B/P B/P Mean Pulse Ox FiO2 09/14 97.5-97.9 81-82 16-18 139-156/73-82 95.2- 106.7 94-95 Last Documented: Result Date Time Pulse Ox 94 09/14 2330 B/P 139/73 09/14 2331 B/P Mean 95.2 09/14 2331 O2 Delivery Nasal cannula 09/14 2330 Temp 97.5 09/14 233 Pulse 81 09/14 2331 Resp 18 09/14 2331 O2 Flow Rate 2 09/08 1322 24 hour I O ending at 0700: 09/15 0700 09/14 1900 Intake Total Output Total 1000 Balance -1000 Number 0 Incontinent Voids Number Voids 0 Output, Urine 1000 PATIENT WEIGHT: Weight (lb): 165 Weight (oz): 5.55 Weight (kg): 75.000 Medications: Active Meds + DC'd Last 24 Hrs Insulin Glargine (Semglee) 14 UNIT BEDTIME SUBQ Insulin Human Lispro (HUMALOG) 7 UNIT AC SUBQ Insulin Glargine (Semglee) 10 UNIT BEDTIME SUBQ (DC) Carvedilol (COREG) 25 MG C BK DIN PO Methylprednisolone Sodium Succinate (Solu-Medrol 125 MG Vial) 125 MG DAILY 1400 IV (DC) Daptomycin (CUBICIN 500MG) 500 MG Q24H IV Sodium Chloride (SODIUM CHLORIDE 0.9%) 50 ML Meropenem (MEROPENEM) 500 MG Q12H IV Sterile Water (WATER FOR INJECTION) 10 ML Gabapentin (NEURONTIN) 100 MG Q8HR PO Oxycodone/Acetaminophen (PERCOCET 5/325MG TAB) 2 TAB Q4H PRN PRN PO Ferric Sodium Gluconate Complex (FERRLECIT) 125 MG DAILY IV Sodium Chloride (SODIUM CHLORIDE 0.9%) 100 ML Folic Acid (FOLIC ACID) 2 MG DAILY PO Multivitamins (TAB-A-MOHAN) 1 TAB DAILY PO Furosemide (LASIX 20MG INJ) 20 MG BLOOD-DOSE BET WEEN IV (CKD) Sodium Chloride (SODIUM CHLORIDE) 10 ML ASDIR IV Pantoprazole Sodium (PROTONIX) 40 MG Q12HR IV Polyethylene Glycol (MIRALAX) 17 GM DAILY PO Sennosides (Senna Lax 8.6 MG TABLET) 8.6 MG MADALYN Y PO Sodium Chloride (SODIUM CHLORIDE) 10 ML ASDIR NV N IV Amitriptyline HCl (ELAVIL) 25 MG BEDTIME PO Zinc Oxide (ZINC OXIDE 30 GM OINTMENT) 1 APPLIC DAILY TOPICAL Sterile Water (WATER FOR IRRIGATION) DRESSING CH GELACIO ASDIR PRN IRR Insulin Human Lispro (HUMALOG) 0 AC HS SUBQ Dextrose/Water (DEXTROSE 10% IN WATER) 125 ML DIR PRN IV (CKD) Dextrose/Water (DEXTROSE 10% IN WATER) 250 ML DIR PRN IV (CKD) Glucagon (GLUCAGON) 1 MG ASDIR PRN IM Lidocaine (LIDODERM) 1 PATCH DAILY TOPICAL Heparin Sodium (HEPARIN 5000 UNITS/ML) 5,000 UNI T Q8HR SUBQ Acetaminophen (TYLENOL) 650 MG Q6H PRN PRN PO Bisacodyl (DULCOLAX) 10 MG DAILY PRN PRN RECTAL Docusate Sodium (COLACE) 100 MG Q12H PRN PRN PO Hydralazine HCl (APRESOLINE) 10 MG Q6H PRN PRN I V Ondansetron HCl (ZOFRAN) 4 MG Q6H PRN PRN IV Physical Exam General appearance: alert, awake, oriented, no r espiratory distress Head/eyes: atraumatic, EOMI, normocephalic, norm al conjunctiva/sclera, PERRLA ENT: normal ear left, normal ear right, normal n ose, normal pharynx, moist mucosal membranes Neck: full range of motion, no lymphadenopathy, supple/no meningismus Cardiovascular: regular rate rhythm Respiratory: clear to auscultation, no distress, aerating well Abdomen: soft, non-tender, no distention , active bowel sounds in all quarants. 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, no sensory deficit s, CNII-XII grossly intact Considered stroke alert: no Skin: dry, normal turgor, no rash Psychiatry: normal affect Results Findings/data: Laboratory Tests: 09/15 09/14 09/14 09/14 09/14 0519 1931 1543 1130 0736 Chemistry POC Glucose (70 - 110 MG/DL) 309 H 193 H 60 L 1 37 H 290 H Microbiology: Date/Time Procedure - Status Source Growth 09/15 0500 MRSA DNA Surveillance Screen - COLB NASAL Diagnosis, Assessment Plan Free text A P: A/P: Patient is a 56 year old male who presents with: Recent prostate abscess -Status post TURP with unroofing of abscess -IV antibiotics with vancomycin until 09-24-2022 Acute postoperative pain, right foot and ankle g angrene, requiring BKA -Patient is at risk for further amputations or l oss of limb due to comorbid conditions -Status post right BKA 08/28/2022 -DC Check 10/325 1 tablet p.o. every 4 hours as needed pain scale 4 10 -DC Dilaudid 0.5 mg IV daily as needed pain scale 7 10, second line therapy () -Tylenol 650 mg p.o. every 6 hours as needed ofelia n scale 1 3 -Percocet 10/325mg every 4 hours as needed, pain scale 4-10 (09/10) -Lidoderm patch to left ankle daily -IV antibiotics with vancomycin until 09-24-2022 -Local wound care -manageable Diabetic peripheral neuropathy -amitriptyline 25mg PO QHS -Gabapentin 100mg every 8 hours (09/10) -manageable Hypertension -We will monitor hypertension and tachycardia du e to pain, and hypotension as well as bradycardia secondary over sedation with narcotics -Hydralazine as needed Elevated LFTs -08/20/22-AST 51, ALT 22 -09/03/2022-AST 15, ALT 7 -Patient will require close monitoring since he is using narcotics with Tylenol Impaired functional mobility, balance, gait, and endurance -PT/OT Antalgic/Impaired gait -PT/OT -Improve strength, endurance, self-care, gait, b alance, ADLs -Fall precautions per unit protocol -Pain medications as outlined above Constipation -We will monitor while utilizing opioid narcotic medications. -Adequate fluid intake also discussed. -Colace 100 mg p.o. twice daily as needed -Dulcolax 10 mg rectally daily as needed -Senna lax 8.6mg daily -Miralax 17gm daily -manageable Disposition: Past Medical History: Prostate abscess, right fo ot foot and ankle gangrene, diabetes, hypertension, hyperlipidemia Past Surgical History: TURP, right BKA Family History: Noncontributory Social History: Denies tobacco, alcohol, or drug use Allergies: NKDA Patient has failed conservative medical therapy. Patient will require monitoring while utilize na rcotic medications for any adverse effects, and will adjust as needed Plan of care discussed with patient and nurse All diagnostics of last 24 hours been reviewed. Risks versus benefits of opioid medications were reviewed to include, but not limited to respiratory depression, accid ental overdose, altered mental status, sudden , constipation which could result in bowel obstruction, seizures, withdrawal, dependency addiction, risk for falls . Case discussed with Dr Ng whom agrees. Thank you for the consultation. [place] [facility] NURSE: -database searched, no information found Kingsley Ng 10/04/22 1356: Attestations Physician Attestation Agree w/findings plan: The patient was seen and exa mined by Charlie Quiroga. I personally developed the care plan, which was continued by the mid-level provider. I was immediately available. at 0708 Electronically Signed by Kingsley Ng MD on 3 at 1400 RPT #:[id number] END OF REPORT 2022-09-14 17:43:00-00:00 [facility]) Gastroenterology Progress Note REPORT#:[id number] REPORT STATUS: Signed DATE:09/14/22 TIME: 1742 PATIENT: KARMA ROWLAND UNIT #: [id number] ROOM/BED: [place] [address] : 63 AGE: 56 SEX: M ATTEND: Fredy Vences MD ADM AUTHOR: Tiara Tillman CLAY MILLER * ALL edits or amendments must be made on the el ectronic/computer document * Subjective HPI: Patient is a 56-year-old male with history of di abetes mellitus type 2 and hypertension who was initially admitted for alte red mental status and right- sided foot infection. 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 The p atient is anemic with current Hgb 7.1. He has received a total of 3 un its pRBCs during this hospitalization. KUB on 09/04 was negative for acute GI process. T he patient denies overt GIB, dark tarry stools, nausea, a bdominal pain, or vomiting. He has never had EGD or colonoscopy. 09/06: No complaints today. Hemoglobin stable. No overt GI bleed. Plan for colonoscopy and endoscopy on Thursday 09/07: No complaints today. No overt GI bleed. Pl anning for colonoscopy and endoscopy tomorrow 09/08: EGD mild gastritis. colonoscopy rectal eugenia yp s/p snare. No other abnormalities 09/09: doing well. Seen at the gym. No bleeding. 09/10: Doing well. No bleeding. tolerating diet. Movig bowels 09/11: doing well. States his leg swelling is bet ter. Tolerating diet. having normal BM 09/12: dooing well. doing work-out at the gym. To lerating diet. Normal BMs. Stable H/H 09/14-Sitting up in wheelchair, family at bedside . Denies n/v/abd pain/GIB Objective Physical Exam HEENT: atraumatic, normocephalic Neck: full range of motion, non-tender Respiratory: symmetric expansion, no distress Abdomen: non-tender, normal bowel sounds, soft, no distention, no guarding Extremities: right BKA Considered stroke alert: no Skin: dry Diagnosis, Assessment Plan Free Text A P: 1. Positive FOBT-and anemia: The patient denies overt GIB, dark tarry stools, nausea, abdominal pain, or vomiting. He is not o n anticoagulation therapy. -Continue PPI. The patient has never had EGD or colonoscopy prior to this admission s/p EGD and colonoscopy. EGD showed mild gastrit is. Colonoscopy showed rectal polyp that was resected by snare. no evidence of bleeding. Pathology of polyp came back as tubular adenoma. recommend repeatin g colonoscopy in 5 years Anemia likely secondary to chronic kidney diseas e. Can consider video capsule endoscopy as outpt if evidence of dropping H/H Will follow along Consultants: cardiology, endocrinology, hospital ist, infectious disease, podiatry at 1745 RPT #:[id number] END OF REPORT 2022-09-14 15:56:00-00:00 [facility] Endocrinology Progress Note REPORT#:[id number] REPORT STATUS: Signed DATE:09/14/22 TIME: 1556 PATIENT: KARMA ROWLAND UNIT #: [id number] ROOM/BED: [place] [address] : 63 AGE: 56 SEX: M ATTEND: Fredy Vences MD ADM AUTHOR: Braxton Chapin MD * ALL edits or amendments must be made on the [employer]/computer document * Subjective Patient reports: no complaints Objective General VS: Last Documented: Result Date Time Pulse Ox 95 09/14 733 B/P 150/76 09/14 733 B/P Mean 101.0 09/14 733 O2 Delivery Room air 09/14 733 Temp 36.6 09/14 733 Pulse 82 09/14 733 Resp 16 09/14 733 O2 Flow Rate 2 09/08 1322 PATIENT WEIGHT: Weight (lb): 165 Weight (oz): 5.55 Weight (kg): 75.000 Medications: Active Meds + DC'd Last 24 Hrs Insulin Human Lispro (HUMALOG) 7 UNIT AC SUBQ Insulin Glargine (Semglee) 10 UNIT BEDTIME SUBQ Carvedilol (COREG) 25 MG C BK DIN PO Furosemide (LASIX) 20 MG BID 9A 5P PO (DC) Methylprednisolone Sodium Succinate (Solu-Medrol 125 MG Vial) 125 MG DAILY 1400 IV (DC) Daptomycin (CUBICIN 500MG) 500 MG Q24H IV Sodium Chloride (SODIUM CHLORIDE 0.9%) 50 ML Meropenem (MEROPENEM) 500 MG Q12H IV Sterile Water (WATER FOR INJECTION) 10 ML Gabapentin (NEURONTIN) 100 MG Q8HR PO Oxycodone/Acetaminophen (PERCOCET 5/325MG TAB) 2 TAB Q4H PRN PRN PO Ferric Sodium Gluconate Complex (FERRLECIT) 125 MG DAILY IV Sodium Chloride (SODIUM CHLORIDE 0.9%) 100 ML Folic Acid (FOLIC ACID) 2 MG DAILY PO Multivitamins (TAB-A-MOHAN) 1 TAB DAILY PO Insulin Glargine (Semglee) 5 UNIT BEDTIME SUBQ ( DC) Furosemide (LASIX 20MG INJ) 20 MG BLOOD-DOSE BET WEEN IV (CKD) Sodium Chloride (SODIUM CHLORIDE) 10 ML ASDIR IV Pantoprazole Sodium (PROTONIX) 40 MG Q12HR IV Polyethylene Glycol (MIRALAX) 17 GM DAILY PO Sennosides (Senna Lax 8.6 MG TABLET) 8.6 MG MADALYN Y PO Sodium Chloride (SODIUM CHLORIDE) 10 ML ASDIR NV N IV Amitriptyline HCl (ELAVIL) 25 MG BEDTIME PO Zinc Oxide (ZINC OXIDE 30 GM OINTMENT) 1 APPLIC DAILY TOPICAL Sterile Water (WATER FOR IRRIGATION) DRESSING CH GELACIO ASDIR PRN IRR Insulin Human Lispro (HUMALOG) 0 AC HS SUBQ Dextrose/Water (DEXTROSE 10% IN WATER) 125 ML DIR PRN IV (CKD) Dextrose/Water (DEXTROSE 10% IN WATER) 250 ML DIR PRN IV (CKD) Glucagon (GLUCAGON) 1 MG ASDIR PRN IM Lidocaine (LIDODERM) 1 PATCH DAILY TOPICAL Insulin Human Lispro (HUMALOG) 5 UNIT AC SUBQ (D C) Heparin Sodium (HEPARIN 5000 UNITS/ML) 5,000 UNI T Q8HR SUBQ Acetaminophen (TYLENOL) 650 MG Q6H PRN PRN PO Bisacodyl (DULCOLAX) 10 MG DAILY PRN PRN RECTAL Docusate Sodium (COLACE) 100 MG Q12H PRN PRN PO Hydralazine HCl (APRESOLINE) 10 MG Q6H PRN PRN I V Ondansetron HCl (ZOFRAN) 4 MG Q6H PRN PRN IV Physical Exam General appearance: alert, awake Diagnosis, Assessment Plan Hospital course to date: Laboratory Tests: 09/14 09/14 09/14 09/14 09/13 1130 0736 0536 0534 1932 Chemistry Sodium (134 - 147 mEq/L) 132 L Potassium (3.4 - 5.0 mEq/L) 4.4 Chloride (100 - 108 mEq/L) 104 Carbon Dioxide (21 - 33 mEq/l) 19 L Anion Gap (0 - 20) 14 BUN (7 - 18 mg/dL) 38 H Creatinine (0.6 - 1.3 mg/dL) 2.8 H Glomerular Filtr Rate (90 - 95) 25.4 L Glucose (70 - 110 mg/dL) 325 H POC Glucose (70 - 110 MG/DL) 137 H 290 H 334 H 248 H Calcium (8.0 - 10.5 mg/dL) 7.5 L Hematology WBC (4.5 - 11.0 x10 3/uL) 9.5 RBC (4.00 - 5.60 x10 6/uL) 2.83 L Hgb (12.5 - 16.9 g/dL) 8.0 L Hct (37.5 - 50.7 %) 25.3 L MCV (81.0 - 99.0 fL) 89.4 MCH (27.0 - 33.0 pg) 28.3 MCHC (33.0 - 37.0 g/dL) 31.6 L RDW (11.5 - 14.5 %) 14.0 Plt Count (150 - 400 x10 3/uL) 322 MPV (7.0 - 9.0 fL) 9.3 H Neut % (Auto) (56.0 - 77.0 %) 80.2 H Lymph % (Auto) (14.0 - 32.0 %) 13.9 L Boundary % (Auto) (4.8 - 9.0 %) 5.1 Eos % (Auto) (0.3 - 3.7 %) 0.0 L Baso % (Auto) (0.0 - 2.0 %) 0.1 Neut # (Auto) (2.0 - 7.6 x10 3/uL) 7.58 Lymph # (Auto) (1.0 - 3.8 x10 3/uL) 1.31 Boundary # (Auto) (0.1 - 0.8 x10 3/uL) 0.48 Eos # (Auto) (0.0 - 0.2 x10 3/uL) 0.00 Baso # (Auto) (0.0 - 0.2 x10 3/uL) 0.01 Abs Immat Gran (auto) (0.00 - 0.03 0.07 H x10 3/uL) Add Manual Diff NO Immature Gran % (0.0 - 2.0 %) 0.7 Nucleated RBC % (0 - 0 %) 0.0 Nucleated RBCs # (Man) (0.0 - 0.1 0.00 x10 3/uL) 09/13 1629 Chemistry POC Glucose (70 - 110 MG/DL) 130 H Laboratory Tests: 09/13 09/13 09/13 09/12 8045 0536 0451 2016 Chemistry Sodium (134 - 147 mEq/L) 133 L Potassium (3.4 - 5.0 mEq/L) 4.6 Chloride (100 - 108 mEq/L) 107 Carbon Dioxide (21 - 33 mEq/l) 19 L Anion Gap (0 - 20) 12 BUN (7 - 18 mg/dL) 28 H Creatinine (0.6 - 1.3 mg/dL) 2.7 H Glomerular Filtr Rate (90 - 95) 26.5 L Glucose (70 - 110 mg/dL) 241 H POC Glucose (70 - 110 MG/DL) 307 H 258 H 223 H Calcium (8.0 - 10.5 mg/dL) 7.8 L Phosphorus (2.5 - 4.9 MG/DL) 4.7 Magnesium (1.80 - 2.40 mg/dL) 1.92 Hematology WBC (4.5 - 11.0 x10 3/uL) 9.8 RBC (4.00 - 5.60 x10 6/uL) 2.90 L Hgb (12.5 - 16.9 g/dL) 8.2 L Hct (37.5 - 50.7 %) 25.4 L MCV (81.0 - 99.0 fL) 87.6 MCH (27.0 - 33.0 pg) 28.3 MCHC (33.0 - 37.0 g/dL) 32.3 L RDW (11.5 - 14.5 %) 13.7 Plt Count (150 - 400 x10 3/uL) 288 MPV (7.0 - 9.0 fL) 10.0 H Neut % (Auto) (56.0 - 77.0 %) 85.3 H Lymph % (Auto) (14.0 - 32.0 %) 10.4 L Boundary % (Auto) (4.8 - 9.0 %) 3.5 L Eos % (Auto) (0.3 - 3.7 %) 0.0 L Baso % (Auto) (0.0 - 2.0 %) 0.1 Neut # (Auto) (2.0 - 7.6 x10 3/uL) 8.34 H Lymph # (Auto) (1.0 - 3.8 x10 3/uL) 1.02 Boundary # (Auto) (0.1 - 0.8 x10 3/uL) 0.34 Eos # (Auto) (0.0 - 0.2 x10 3/uL) 0.00 Baso # (Auto) (0.0 - 0.2 x10 3/uL) 0.01 Abs Immat Gran (auto) (0.00 - 0.03 x10 3/uL) 0. 07 H Add Manual Diff NO Immature Gran % (0.0 - 2.0 %) 0.7 Nucleated RBC % (0 - 0 %) 0.0 Nucleated RBCs # (Man) (0.0 - 0.1 x10 3/uL) 0.0 0 Microbiology: Date/Time Procedure - Status Source Growth 09/13 454 MRSA DNA Surveillance Screen - RECD NASAL Laboratory Tests: 09/12 09/12 09/12 09/12 1606 1115 1105 0604 Chemistry POC Glucose (70 - 110 MG/DL) 150 H 68 L 170 H B-Natriuretic Peptide (0 - 100 PG/ML) 297.0 H Hematology Eos Smear Total Cells NONE SEEN 09/12 09/11 09/11 0420 2130 1933 Chemistry Sodium (134 - 147 mEq/L) 134 Potassium (3.4 - 5.0 mEq/L) 4.2 Chloride (100 - 108 mEq/L) 106 Carbon Dioxide (21 - 33 mEq/l) 20 L Anion Gap (0 - 20) 12 BUN (7 - 18 mg/dL) 31 H Creatinine (0.6 - 1.3 mg/dL) 2.4 H Glomerular Filtr Rate (90 - 95) 30.5 L Glucose (70 - 110 mg/dL) 167 H POC Glucose (70 - 110 MG/DL) 150 H Calcium (8.0 - 10.5 mg/dL) 8.2 Phosphorus (2.5 - 4.9 MG/DL) 4.4 Magnesium (1.80 - 2.40 mg/dL) 1.86 Hematology WBC (4.5 - 11.0 x10 3/uL) 8.8 RBC (4.00 - 5.60 x10 6/uL) 2.73 L Hgb (12.5 - 16.9 g/dL) 7.7 L Hct (37.5 - 50.7 %) 23.7 L MCV (81.0 - 99.0 fL) 86.8 MCH (27.0 - 33.0 pg) 28.2 MCHC (33.0 - 37.0 g/dL) 32.5 L RDW (11.5 - 14.5 %) 13.8 Plt Count (150 - 400 x10 3/uL) 248 MPV (7.0 - 9.0 fL) 9.7 H Neut % (Auto) (56.0 - 77.0 %) 72.3 Lymph % (Auto) (14.0 - 32.0 %) 15.0 Boundary % (Auto) (4.8 - 9.0 %) 7.9 Eos % (Auto) (0.3 - 3.7 %) 3.8 H Baso % (Auto) (0.0 - 2.0 %) 0.3 Neut # (Auto) (2.0 - 7.6 x10 3/uL) 6.34 Lymph # (Auto) (1.0 - 3.8 x10 3/uL) 1.31 Boundary # (Auto) (0.1 - 0.8 x10 3/uL) 0.69 Eos # (Auto) (0.0 - 0.2 x10 3/uL) 0.33 H Baso # (Auto) (0.0 - 0.2 x10 3/uL) 0.03 Abs Immat Gran (auto) (0.00 - 0.03 x10 3/uL) 0. 06 H Add Manual Diff NO Immature Gran % (0.0 - 2.0 %) 0.7 Nucleated RBC % (0 - 0 %) 0.0 Nucleated RBCs # (Man) (0.0 - 0.1 x10 3/uL) 0.0 0 Toxicology Random Vancomycin (mcg/mL) 16.7 Laboratory Tests: 09/11 09/11 09/11 09/11 09/11 1532 1445 1114 0541 0445 Chemistry Sodium (134 - 147 mEq/L) 134 Potassium (3.4 - 5.0 mEq/L) 4.3 Chloride (100 - 108 mEq/L) 105 Carbon Dioxide (21 - 33 mEq/l) 22 Anion Gap (0 - 20) 12 BUN (7 - 18 mg/dL) 26 H Creatinine (0.6 - 1.3 mg/dL) 2.0 H Glomerular Filtr Rate (90 - 95) 38.0 L Glucose (70 - 110 mg/dL) 109 POC Glucose (70 - 110 MG/DL) 93 109 127 H Calcium (8.0 - 10.5 mg/dL) 8.3 Phosphorus (2.5 - 4.9 MG/DL) 4.7 Magnesium (1.80 - 2.40 mg/dL) 1.90 Hematology WBC (4.5 - 11.0 x10 3/uL) 7.9 RBC (4.00 - 5.60 x10 6/uL) 2.94 L Hgb (12.5 - 16.9 g/dL) 8.3 L Hct (37.5 - 50.7 %) 25.8 L MCV (81.0 - 99.0 fL) 87.8 MCH (27.0 - 33.0 pg) 28.2 MCHC (33.0 - 37.0 g/dL) 32.2 L RDW (11.5 - 14.5 %) 13.7 Plt Count (150 - 400 x10 3/uL) 269 MPV (7.0 - 9.0 fL) 9.8 H Neut % (Auto) (56.0 - 77.0 %) 67.9 Lymph % (Auto) (14.0 - 32.0 %) 16.1 Boundary % (Auto) (4.8 - 9.0 %) 9.1 H Eos % (Auto) (0.3 - 3.7 %) 5.6 H Baso % (Auto) (0.0 - 2.0 %) 0.5 Neut # (Auto) (2.0 - 7.6 x10 3/uL) 5.35 Lymph # (Auto) (1.0 - 3.8 x10 3/uL) 1.27 Boundary # (Auto) (0.1 - 0.8 x10 3/uL) 0.72 Eos # (Auto) (0.0 - 0.2 x10 3/uL) 0.44 H Baso # (Auto) (0.0 - 0.2 x10 3/uL) 0.04 Abs Immat Gran (auto) (0.00 - 0.03 0.06 H x10 3/uL) Add Manual Diff NO Immature Gran % (0.0 - 2.0 %) 0.8 Nucleated RBC % (0 - 0 %) 0.0 Nucleated RBCs # (Man) (0.0 - 0.1 0.00 x10 3/uL) Toxicology Random Vancomycin (mcg/mL) 18.3 09/10 1851 Chemistry POC Glucose (70 - 110 MG/DL) 97 Laboratory Tests: 09/10 09/10 09/10 09/10 09/10 1715 1625 1430 1007 0545 Chemistry Sodium (134 - 147 mEq/L) 135 Potassium (3.4 - 5.0 mEq/L) 4.2 Chloride (100 - 108 mEq/L) 107 Carbon Dioxide (21 - 33 mEq/l) 21 Anion Gap (0 - 20) 11 BUN (7 - 18 mg/dL) 25 H Creatinine (0.6 - 1.3 mg/dL) 1.9 H Glomerular Filtr Rate (90 - 95) 40.4 L Glucose (70 - 110 mg/dL) 156 H POC Glucose (70 - 110 MG/DL) 75 58 L 213 H Calcium (8.0 - 10.5 mg/dL) 8.3 Phosphorus (2.5 - 4.9 MG/DL) 4.6 Magnesium (1.80 - 2.40 mg/dL) 1.89 Hematology WBC (4.5 - 11.0 x10 3/uL) 8.6 RBC (4.00 - 5.60 x10 6/uL) 3.08 L Hgb (12.5 - 16.9 g/dL) 8.6 L Hct (37.5 - 50.7 %) 26.7 L MCV (81.0 - 99.0 fL) 86.7 MCH (27.0 - 33.0 pg) 27.9 MCHC (33.0 - 37.0 g/dL) 32.2 L RDW (11.5 - 14.5 %) 13.8 Plt Count (150 - 400 x10 3/uL) 265 MPV (7.0 - 9.0 fL) 9.6 H Neut % (Auto) (56.0 - 77.0 %) 69.4 Lymph % (Auto) (14.0 - 32.0 %) 15.5 Boundary % (Auto) (4.8 - 9.0 %) 8.5 Eos % (Auto) (0.3 - 3.7 %) 5.5 H Baso % (Auto) (0.0 - 2.0 %) 0.4 Neut # (Auto) (2.0 - 7.6 x10 3/uL) 5.94 Lymph # (Auto) (1.0 - 3.8 x10 3/uL) 1.33 Boundary # (Auto) (0.1 - 0.8 x10 3/uL) 0.73 Eos # (Auto) (0.0 - 0.2 x10 3/uL) 0.47 H Baso # (Auto) (0.0 - 0.2 x10 3/uL) 0.03 Abs Immat Gran (auto) (0.00 - 0.03 0.06 H x10 3/uL) Add Manual Diff NO Immature Gran % (0.0 - 2.0 %) 0.7 Nucleated RBC % (0 - 0 %) 0.0 Nucleated RBCs # (Man) (0.0 - 0.1 0.00 x10 3/uL) Toxicology Random Vancomycin (mcg/mL) 15.7 09/10 09/09 0541 1911 Chemistry POC Glucose (70 - 110 MG/DL) 154 H 102 Recent Impressions: ULTRASOUND - US RETROPERITONEAL COM 09/10 1311 Report Impression - Status: SIGNED Entered: 09/10/2022 1503 IMPRESSION: No acute findings. Impression By: Hakeem Jacobo Laboratory Tests: 09/09 09/09 09/09 09/09 09/09 1606 1526 1403 1049 0524 Chemistry POC Glucose (70 - 110 MG/DL) 109 30 L 90 128 H Toxicology Random Vancomycin (mcg/mL) 15.4 09/09 09/08 09/08 0500 1955 1828 Chemistry Sodium (134 - 147 mEq/L) 136 Potassium (3.4 - 5.0 mEq/L) 4.2 Chloride (100 - 108 mEq/L) 107 Carbon Dioxide (21 - 33 mEq/l) 22 Anion Gap (0 - 20) 11 BUN (7 - 18 mg/dL) 23 H Creatinine (0.6 - 1.3 mg/dL) 1.5 H Glomerular Filtr Rate (90 - 95) 53.6 L Glucose (70 - 110 mg/dL) 125 H POC Glucose (70 - 110 MG/DL) 106 Calcium (8.0 - 10.5 mg/dL) 8.2 Phosphorus (2.5 - 4.9 MG/DL) 4.0 Magnesium (1.80 - 2.40 mg/dL) 1.89 Iron (35 - 150 mcg/dL) 10 L TIBC (260 - 445 mcg/dL) 138 L % Saturation (14 - 34 %) 7.2 L Unsat Iron Binding (mcg/dL) 128 Ferritin (23.9 - 336.2 ng/mL) 700.5 H Lactate Dehydrogenase (87 - 241 IUnits/L) 193 Hematology WBC (4.5 - 11.0 x10 3/uL) 9.2 RBC (4.00 - 5.60 x10 6/uL) 3.01 L Hgb (12.5 - 16.9 g/dL) 8.5 L Hct (37.5 - 50.7 %) 25.9 L MCV (81.0 - 99.0 fL) 86.0 MCH (27.0 - 33.0 pg) 28.2 MCHC (33.0 - 37.0 g/dL) 32.8 L RDW (11.5 - 14.5 %) 13.8 Plt Count (150 - 400 x10 3/uL) 263 MPV (7.0 - 9.0 fL) 9.7 H Neut % (Auto) (56.0 - 77.0 %) 69.1 Lymph % (Auto) (14.0 - 32.0 %) 16.1 Boundary % (Auto) (4.8 - 9.0 %) 9.2 H Eos % (Auto) (0.3 - 3.7 %) 4.7 H Baso % (Auto) (0.0 - 2.0 %) 0.4 Neut # (Auto) (2.0 - 7.6 x10 3/uL) 6.38 Lymph # (Auto) (1.0 - 3.8 x10 3/uL) 1.49 Boundary # (Auto) (0.1 - 0.8 x10 3/uL) 0.85 H Eos # (Auto) (0.0 - 0.2 x10 3/uL) 0.43 H Baso # (Auto) (0.0 - 0.2 x10 3/uL) 0.04 Abs Immat Gran (auto) (0.00 - 0.03 x10 3/uL) 0. 05 H Add Manual Diff NO Immature Gran % (0.0 - 2.0 %) 0.5 Nucleated RBC % (0 - 0 %) 0.0 Nucleated RBCs # (Man) (0.0 - 0.1 x10 3/uL) 0.0 0 Retic Count (auto) (0.3 - 2.3 %) 1.3 Laboratory Tests: 09/08 09/08 09/08 09/08 09/08 1611 1318 1045 1033 0616 Chemistry POC Glucose (70 - 110 MG/DL) 120 H 101 99 101 Toxicology Random Vancomycin (mcg/mL) 15.8 09/08 09/07 09/07 0615 2238 2110 Chemistry Sodium (134 - 147 mEq/L) 135 Potassium (3.4 - 5.0 mEq/L) 4.6 Chloride (100 - 108 mEq/L) 107 Carbon Dioxide (21 - 33 mEq/l) 22 Anion Gap (0 - 20) 10 BUN (7 - 18 mg/dL) 22 H Creatinine (0.6 - 1.3 mg/dL) 1.4 H Glomerular Filtr Rate (90 - 95) 58.3 L Glucose (70 - 110 mg/dL) 100 POC Glucose (70 - 110 MG/DL) 135 H 127 H Calcium (8.0 - 10.5 mg/dL) 8.1 Magnesium (1.80 - 2.40 mg/dL) 1.58 L Total Creatine Kinase (46 - 171 Units/L) 22 L Albumin (3.4 - 5.0 g/dL) 1.30 L Prealbumin (16.0 - 40.0 mg/dL) < 5.0 L Hematology WBC (4.5 - 11.0 x10 3/uL) 9.1 RBC (4.00 - 5.60 x10 6/uL) 3.05 L Hgb (12.5 - 16.9 g/dL) 8.5 L Hct (37.5 - 50.7 %) 26.2 L MCV (81.0 - 99.0 fL) 85.9 MCH (27.0 - 33.0 pg) 27.9 MCHC (33.0 - 37.0 g/dL) 32.4 L RDW (11.5 - 14.5 %) 13.5 Plt Count (150 - 400 x10 3/uL) 231 MPV (7.0 - 9.0 fL) 9.6 H Neut % (Auto) (56.0 - 77.0 %) 73.3 Lymph % (Auto) (14.0 - 32.0 %) 13.7 L Boundary % (Auto) (4.8 - 9.0 %) 7.2 Eos % (Auto) (0.3 - 3.7 %) 4.8 H Baso % (Auto) (0.0 - 2.0 %) 0.3 Neut # (Auto) (2.0 - 7.6 x10 3/uL) 6.64 Lymph # (Auto) (1.0 - 3.8 x10 3/uL) 1.24 Boundary # (Auto) (0.1 - 0.8 x10 3/uL) 0.65 Eos # (Auto) (0.0 - 0.2 x10 3/uL) 0.43 H Baso # (Auto) (0.0 - 0.2 x10 3/uL) 0.03 Abs Immat Gran (auto) (0.00 - 0.03 x10 3/uL) 0. 06 H Add Manual Diff NO Immature Gran % (0.0 - 2.0 %) 0.7 Nucleated RBC % (0 - 0 %) 0.0 Nucleated RBCs # (Man) (0.0 - 0.1 x10 3/uL) 0.0 0 Laboratory Tests: 09/07 09/07 09/07 09/07 09/07 1554 1137 1127 0618 0510 Chemistry Creatinine (0.6 - 1.3 mg/dL) 1.4 H POC Glucose (70 - 110 MG/DL) 112 H 51 L 42 L 13 5 H Hematology Hgb (12.5 - 16.9 g/dL) 8.4 L Hct (37.5 - 50.7 %) 26.2 L Toxicology Random Vancomycin (mcg/mL) 14.7 09/06 09/06 2226 2108 Chemistry POC Glucose (70 - 110 MG/DL) 192 H 211 H Laboratory Tests: 09/06 09/06 09/06 09/06 09/06 1553 1547 1051 0538 0536 Chemistry Creatinine (0.6 - 1.3 mg/dL) 1.4 H POC Glucose (70 - 110 MG/DL) 119 H 92 124 H Hematology Hgb (12.5 - 16.9 g/dL) 8.6 L Hct (37.5 - 50.7 %) 26.1 L Toxicology Vancomycin Trough (10.0 - 20.0 mcg/mL) 18.9 09/05 1910 Chemistry POC Glucose (70 - 110 MG/DL) 117 H Laboratory Tests: 09/05 09/05 09/04 09/04 09/04 1149 0615 2042 1630 1557 Chemistry Sodium (134 - 147 mEq/L) 134 Potassium (3.4 - 5.0 mEq/L) 5.0 Chloride (100 - 108 mEq/L) 109 H Carbon Dioxide (21 - 33 mEq/l) 21 Anion Gap (0 - 20) 9 BUN (7 - 18 mg/dL) 24 H Creatinine (0.6 - 1.3 mg/dL) 1.3 Glomerular Filtr Rate (90 - 95) 63.7 L Glucose (70 - 110 mg/dL) 75 POC Glucose (70 - 110 MG/DL) 74 103 128 H Calcium (8.0 - 10.5 mg/dL) 7.9 L Hematology Hgb (12.5 - 16.9 g/dL) 7.1 L Hct (37.5 - 50.7 %) 22.7 L Toxicology Vancomycin Trough (10.0 - 20.0 mcg/mL) 12.8 Microbiology: Date/Time Procedure - Status Source Growth 09/04 1739 Occult Blood - COMP STOOL Recent Impressions: RADIOLOGY - XR ABDOMEN 1V (KUB) 09/04 1648 Report Impression - Status: SIGNED Entered: 09/04/2022 1757 IMPRESSION: Benign appearance of the abdomen. Impression By: [email or web address] - Roger Parra M.D . ULTRASOUND - DUP VEIN UNI/LTD 09/05 1146 Report Impression - Status: SIGNED Entered: 09/05/2022 1333 IMPRESSION: 1. No evidence of deep vein thrombosis. 2. Complex heterogeneous hypoechoic fluid collec tion in the left calf region measuring 8.4 x 2.8 x 2.5 cm; there is no internal vascularity or peripheral hyperemia. May represe nt a hematoma. Impression By: [email or web address] - Mert Ga M.D. RADIOLOGY - XR CHEST 1 V 09/05 1432 Report Impression - Status: SIGNED Entered: 09/05/2022 1515 IMPRESSION: Minimal bibasilar pulmonary opacities Impression By: [email or web address] - Hakeem Perez Laboratory Tests: 09/04 09/04 09/04 09/04 09/04 1630 1557 1100 1031 0816 Chemistry POC Glucose (70 - 110 MG/DL) 128 H 107 99 Hematology Hgb (12.5 - 16.9 g/dL) 7.7 L Hct (37.5 - 50.7 %) 23.7 L Toxicology Vancomycin Trough (10.0 - 20.0 mcg/mL) 12.8 09/04 09/04 09/03 09/03 0721 0540 1944 1836 Chemistry POC Glucose (70 - 110 MG/DL) 87 124 H Hematology Hgb (12.5 - 16.9 g/dL) 6.8 L Hct (37.5 - 50.7 %) 21.2 L Toxicology Vancomycin Peak (30 - 40 MCG/ML) 27.4 L Microbiology: Date/Time Procedure - Status Source Growth 09/04 1037 Occult Blood - COLB STOOL 1.Diabetes mellitus type 2 uncontrolled complica tions. 2. 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 4. Sepsis 5. Prostate abscess. 6. Anemia Blood sugar 385-137 mg/dL.H/H 8.11/17. Adjust insulin dose. PT and OT. Electronically Signed by Braxton Chapin MD on at 1557 RPT #:[id number] END OF REPORT 2022-09-14 15:33:00-00:00 [facility] Hospitalist Progress Note REPORT#:[id number] REPORT STATUS: Signed DATE:09/14/22 TIME: 1533 PATIENT: KARMA ROWLAND UNIT #: [id number] ROOM/BED: [place] [id number] : 61 AGE: 56 SEX: M ATTEND: Fredy Vences MD ADM AUTHOR: Meera Chavira DO * ALL edits or amendments must be made on the [employer] document * Subjective Chief complaint: BS better Review of Systems All systems rev neg: except as noted Objective General VS/I O: Vital Signs: Date Time Temp Pulse Resp B/P B/P Pulse O2 O2 F low FiO2 Mean Ox Delivery Rate 09/14 0734 97.9 82 16 150/76 101.0 95 Room air 09/14 0038 98.1 83 16 161/84 109.8 96 09/13 1935 97.5 85 162/81 107.6 95 09/13 1632 97.5 78 18 131/77 95.0 95 Room air 24 hour I O ending at 0700: 09/14 0700 09/13 1900 Intake Total 250 Output Total 900 Balance -650 Intake, Oral 250 Number 0 Incontinent Voids Number Voids 0 Output, Urine 900 PATIENT WEIGHT: Weight (lb): 165 Weight (oz): 5.55 Weight (kg): 75.000 Medications: Active Meds + DC'd Last 24 Hrs Insulin Human Lispro (HUMALOG) 7 UNIT AC SUBQ Insulin Glargine (Semglee) 10 UNIT BEDTIME SUBQ Carvedilol (COREG) 25 MG C BK DIN PO Furosemide (LASIX) 20 MG BID 9A 5P PO (DC) Methylprednisolone Sodium Succinate (Solu-Medrol 125 MG Vial) 125 MG DAILY 1400 IV (DC) Daptomycin (CUBICIN 500MG) 500 MG Q24H IV Sodium Chloride (SODIUM CHLORIDE 0.9%) 50 ML Meropenem (MEROPENEM) 500 MG Q12H IV Sterile Water (WATER FOR INJECTION) 10 ML Gabapentin (NEURONTIN) 100 MG Q8HR PO Oxycodone/Acetaminophen (PERCOCET 5/325MG TAB) 2 TAB Q4H PRN PRN PO Ferric Sodium Gluconate Complex (FERRLECIT) 125 MG DAILY IV Sodium Chloride (SODIUM CHLORIDE 0.9%) 100 ML Folic Acid (FOLIC ACID) 2 MG DAILY PO Multivitamins (TAB-A-MOHAN) 1 TAB DAILY PO Insulin Glargine (Semglee) 5 UNIT BEDTIME SUBQ ( DC) Furosemide (LASIX 20MG INJ) 20 MG BLOOD-DOSE BET WEEN IV (CKD) Sodium Chloride (SODIUM CHLORIDE) 10 ML ASDIR I V Pantoprazole Sodium (PROTONIX) 40 MG Q12HR IV Polyethylene Glycol (MIRALAX) 17 GM DAILY PO Sennosides (Senna Lax 8.6 MG TABLET) 8.6 MG CODY LY PO Sodium Chloride (SODIUM CHLORIDE) 10 ML ASDIR NV N IV Amitriptyline HCl (ELAVIL) 25 MG BEDTIME PO Zinc Oxide (ZINC OXIDE 30 GM OINTMENT) 1 APPLIC DAILY TOPICAL Sterile Water (WATER FOR IRRIGATION) DRESSING CH GELACIO ASDIR PRN IRR Insulin Human Lispro (HUMALOG) 0 AC HS SUBQ Dextrose/Water (DEXTROSE 10% IN WATER) 125 ML DIR PRN IV (CKD) Dextrose/Water (DEXTROSE 10% IN WATER) 250 ML DIR PRN IV (CKD) Glucagon (GLUCAGON) 1 MG ASDIR PRN IM Lidocaine (LIDODERM) 1 PATCH DAILY TOPICAL Insulin Human Lispro (HUMALOG) 5 UNIT AC SUBQ (D C) Heparin Sodium (HEPARIN 5000 UNITS/ML) 5,000 UNI T Q8HR SUBQ Acetaminophen (TYLENOL) 650 MG Q6H PRN PRN PO Bisacodyl (DULCOLAX) 10 MG DAILY PRN PRN RECTAL Docusate Sodium (COLACE) 100 MG Q12H PRN PRN PO Hydralazine HCl (APRESOLINE) 10 MG Q6H PRN PRN I V Ondansetron HCl (ZOFRAN) 4 MG Q6H PRN PRN IV Dietitian nutrition assessment Physical Exam General appearance: alert, awake, oriented, no a cute distress, pleasant, conversational, mental status normal, no respira tory distress Head/Eyes: atraumatic, normocephalic ENT: moist mucosal membranes Neck: no JVD Cardiovascular: normal heart sounds, regular rat e rhythm Respiratory: aerating well, clear to auscultatio n Abdomen: non-tender, normal bowel sounds Genitourinary: no bladder distention Extremities: moves all, normal capillary refill Musculoskeletal: normal inspection, painless ran ge of motion 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 X 3, 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 Considered stroke alert: no Skin: dry, intact Psychiatry: normal affect, normal judgment/insig ht Results Findings/Data: Laboratory Tests 09/14 09/14 09/14 09/14 09/13 1130 0736 0526 0525 1937 Chemistry Sodium (134 - 147 mEq/L) 132 L Potassium (3.4 - 5.0 mEq/L) 4.4 Chloride (100 - 108 mEq/L) 104 Carbon Dioxide (21 - 33 mEq/l) 19 L Anion Gap (0 - 20) 14 BUN (7 - 18 mg/dL) 38 H Creatinine (0.6 - 1.3 mg/dL) 2.8 H Glomerular Filtr Rate (90 - 95) 25.4 L Glucose (70 - 110 mg/dL) 325 H POC Glucose (70 - 110 MG/DL) 137 H 290 H 334 H 248 H Calcium (8.0 - 10.5 mg/dL) 7.5 L 09/13 1629 Chemistry POC Glucose (70 - 110 MG/DL) 130 H Laboratory Tests 09/14 0525 Hematology WBC (4.5 - 11.0 x10 3/uL) 9.5 RBC (4.00 - 5.60 x10 6/uL) 2.83 L Hgb (12.5 - 16.9 g/dL) 8.0 L Hct (37.5 - 50.7 %) 25.3 L MCV (81.0 - 99.0 fL) 89.4 MCH (27.0 - 33.0 pg) 28.3 MCHC (33.0 - 37.0 g/dL) 31.6 L RDW (11.5 - 14.5 %) 14.0 Plt Count (150 - 400 x10 3/uL) 322 MPV (7.0 - 9.0 fL) 9.3 H Neut % (Auto) (56.0 - 77.0 %) 80.2 H Lymph % (Auto) (14.0 - 32.0 %) 13.9 L Boundary % (Auto) (4.8 - 9.0 %) 5.1 Eos % (Auto) (0.3 - 3.7 %) 0.0 L Baso % (Auto) (0.0 - 2.0 %) 0.1 Neut # (Auto) (2.0 - 7.6 x10 3/uL) 7.58 Lymph # (Auto) (1.0 - 3.8 x10 3/uL) 1.31 Boundary # (Auto) (0.1 - 0.8 x10 3/uL) 0.48 Eos # (Auto) (0.0 - 0.2 x10 3/uL) 0.00 Baso # (Auto) (0.0 - 0.2 x10 3/uL) 0.01 Abs Immat Gran (auto) (0.00 - 0.03 x10 3/uL) 0. 07 H Add Manual Diff NO Immature Gran % (0.0 - 2.0 %) 0.7 Nucleated RBC % (0 - 0 %) 0.0 Nucleated RBCs # (Man) (0.0 - 0.1 x10 3/uL) 0.0 0 Diagnosis, Assessment Plan Consultants: cardiology, endocrinology, hospital ist, infectious disease, podiatry Free Text DxA P Notes Free text DxA P notes: Gangrene of right foot s/p Below- knee amputatio n Prostate abscess MRSA bacteremia Hx of Diabetes, Diabetic neuropathy HTN ERIKA PLANS: Continue with PT/OT per primary Wound care as directed Hepain PPX IV iron BP consistently high, increase Metoprolol to 25 mg BID BS better with insulin adjus tment. Likely due to steroids started by Nephrology for AIN trend renal function closely, check BMP in am pain control Electronically Signed by Meera Chavira DO on 3 at 1536 RPT #:[id number] END OF REPORT 2022-09-14 11:38:00-00:00 [facility] ([facility] Nephrology Progress Note REPORT#:[id number] REPORT STATUS: Signed DATE:09/14/22 TIME: 1138 PATIENT: KARMA ROWLAND UNIT #: [id number] ROOM/BED: [place] [address] : 63 AGE: 56 SEX: M ATTEND: Fredy Vences MD ADM AUTHOR: Elodia Neri MD * ALL edits or amendments must be made on the el [employer]/computer document * Subjective Chief complaint: Infected foot HPI: Patient seen and evaluated on 09/09/2022, note st arted, records reviewed and orders placed on 09/08/2022, 56-year-old male with history of diabetes mellitus type 2, hypertension and per ipheral vascular disease who was initially admitted to acute care with altered mental status and rig ht foot infection/gangrene, 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 Patient had persistent anemia requiring blood transfusion. H is fecal occult blood was positive and his creatinine was 1.2 and increase d to 1.4 today, laboratories today showed hemoglobin 8.5, platelet 231, blood count 9.1, sodium 135, potassium 4.6, CO2 22, BUN 22, creatinin e 1.4. Renal consult was requested for evaluation management of pako vated BUN and creatinine and if his decreased GFR is contributing to his anemia. Review of Systems ROS comments: Constitutional: Reports: fatigue. Denies: chills, fever. Skin: Reports: swelling. Denies: rash. Allergy/Immun: Denies: hives, itching. Eyes: Denies: redness, discharge. ENT: Denies: ear drainage, ear ringing. Respiratory: Denies: hemoptysis, SOB. Cardiovascular: Denies: chest pain. Objective General VS/I O: Vital Signs: Date Time Temp Pulse Resp B/P B/P Pulse O2 O2 F low FiO2 Mean Ox Delivery Rate 09/14 0734 36.6 82 16 150/76 101.0 95 Room air 09/14 0038 36.7 83 16 161/84 109.8 96 09/13 1935 36.4 85 162/81 107.6 95 09/13 1632 36.4 78 18 131/77 95.0 95 Room air 24 hour I O ending at 0700: 09/14 0700 09/13 1900 Intake Total 250 Output Total 900 Balance -650 Intake, Oral 250 Number 0 Incontinent Voids Number Voids 0 Output, Urine 900 PATIENT WEIGHT: Weight (lb): 165 Weight (oz): 5.55 Weight (kg): 75.000 Medications Active Meds + DC'd Last 24 Hrs Insulin Human Lispro (HUMALOG) 7 UNIT AC SUBQ Insulin Glargine (Semglee) 10 UNIT BEDTIME SUBQ Carvedilol (COREG) 25 MG C BK DIN PO Furosemide (LASIX) 20 MG BID 9A 5P PO (DC) Methylprednisolone Sodium Succinate (Solu-Medrol 125 MG Vial) 125 MG DAILY 1400 IV Daptomycin (CUBICIN 500MG) 500 MG Q24H IV Sodium Chloride (SODIUM CHLORIDE 0.9%) 50 ML Meropenem (MEROPENEM) 500 MG Q12H IV Sterile Water (WATER FOR INJECTION) 10 ML Hydromorphone HCl (DILAUDID) 0.5 MG DAILY PRN NV N IV (DC) Gabapentin (NEURONTIN) 100 MG Q8HR PO Oxycodone/Acetaminophen (PERCOCET 5/325MG TAB) 2 TAB Q4H PRN PRN PO Ferric Sodium Gluconate Complex (FERRLECIT) 125 MG DAILY IV Sodium Chloride (SODIUM CHLORIDE 0.9%) 100 ML Folic Acid (FOLIC ACID) 2 MG DAILY PO Multivitamins (TAB-A-MOHAN) 1 TAB DAILY PO Carvedilol (COREG) 12.5 MG C BK DIN PO (DC) Insulin Glargine (Semglee) 5 UNIT BEDTIME SUBQ ( DC) Furosemide (LASIX 20MG INJ) 20 MG BLOOD-DOSE BET WEEN IV (CKD) Sodium Chloride (SODIUM CHLORIDE) 10 ML ASDIR IV Pantoprazole Sodium (PROTONIX) 40 MG Q12HR IV Polyethylene Glycol (MIRALAX) 17 GM DAILY PO Sennosides (Senna Lax 8.6 MG TABLET) 8.6 MG MADALYN Y PO Sodium Chloride (SODIUM CHLORIDE) 10 ML ASDIR NV N IV Amitriptyline HCl (ELAVIL) 25 MG BEDTIME PO Zinc Oxide (ZINC OXIDE 30 GM OINTMENT) 1 APPLIC DAILY TOPICAL Sterile Water (WATER FOR IRRIGATION) DRESSING CH GELACIO ASDIR PRN IRR Insulin Human Lispro (HUMALOG) 0 AC HS SUBQ Dextrose/Water (DEXTROSE 10% IN WATER) 125 ML DIR PRN IV (CKD) Dextrose/Water (DEXTROSE 10% IN WATER) 250 ML DIR PRN IV (CKD) Glucagon (GLUCAGON) 1 MG ASDIR PRN IM Lidocaine (LIDODERM) 1 PATCH DAILY TOPICAL Insulin Human Lispro (HUMALOG) 5 UNIT AC SUBQ (D C) Heparin Sodium (HEPARIN 5000 UNITS/ML) 5,000 UNI T Q8HR SUBQ Acetaminophen (TYLENOL) 650 MG Q6H PRN PRN PO Bisacodyl (DULCOLAX) 10 MG DAILY PRN PRN RECTAL Docusate Sodium (COLACE) 100 MG Q12H PRN PRN PO Hydralazine HCl (APRESOLINE) 10 MG Q6H PRN PRN I V Ondansetron HCl (ZOFRAN) 4 MG Q6H PRN PRN IV Physical Exam General appearance: alert, awake, oriented Head/eyes: atraumatic, normocephalic ENT: normal nose Neck: non-tender, supple/no meningismus Cardiovascular: normal heart sounds, no rub Respiratory: aerating well, symmetric expansion Abdomen: non-tender, soft Genitourinary: no flank pain Extremities: non-tender, no edema Musculoskeletal: no CVA tenderness, no tendernes s 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 Diabetes mellitus: Insulin: Monitor bloo d sugar closely and adjust medications as needed, followed by endocrinology. Hypertension: Blood pressure is not well controlled, increase Coreg to 12.5 mg p.o. 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 We will check serum immu nofixation. Acute kidney injury: We will check renal bladder ultrasound, check postvoid residual, check urine protein creatinine ratio Hypomagnesemia: We will supplement 09/10/2022 laboratory this mo rning showed sodium 135, potassium 4.2, CO2 21, BUN 25, creatinine 1.9 continues to worsen, etiology unclear, however his development some eosinophili a not sure if he is developing AIN, suggest changing cefepime to a different class of antibiotic if p ossible, will check renal bladder ultrasound 09/11/2022 laboratory this mo rning showed sodium 134, potassium 4.3, CO2 22, BUN 26, creatinine 2 up from 1.9, hopefully creatini ne is plateauing, renal ultrasound negative. 09/12/2022 laboratory this mo rning showed sodium 134, potassium 4.2, CO2 20, BUN 31, creatinine 2.4 continues to worsen, discussed with ID, AIN is probably the etiology of the unexplained deterioration of his renal function, antibiotics to be adjusted by infectious disease, will give Solu-Medrol 125 mg IV daily for 3 days. Significant lower extremity edema, will st art Lasix 20 mg p.o. twice daily. 09.13.22: pt was seen and examined. Very thirsty. serum creatinine is worsening today. Vancomycin was stopped yesterday and Solu medrol was started. Mild hypovolemic hyponatremia. Will DC lasix and monitor his renal functions. BP is well controlled. 09.14.22: pt was seen and exa mined. Feels better but still thirsty. I stopped his lasix. will start NS at 75 [address] c for one Leter only. serum creatinine is improving. Received three doses of Solu Medrol a well. BP i s on the higher side, likely secondary to steroids. will monitor for now. mild hypovelmic hyponatremia. also could be secondary to hyperglycemia. Consultants: cardiology, endocrinology, [facility] ist, infectious disease, podiatry Electronically Signed by Elodia Neri MD on 0 09/14/22 at 1140 RPT #:[id number] END OF REPORT 2022-09-14 10:34:00-00:00 [facility] ([facility]) Podiatry Progress Note REPORT#:[id number] REPORT STATUS: Signed DATE:09/14/22 TIME: 1034 PATIENT: KARMA ROWLAND UNIT #: [id number] ROOM/BED: [place] [address] : 63 AGE: 56 SEX: M ATTEND: Fredy Vences MD ADM AUTHOR: Reyhani,Liam X DPM * ALL edits or amendments must be made on the [employer]/computer document * Subjective Chief complaint: left heel ulcer. left ankle pain Patient reports: no confusion, no cough, no dizziness, no fever, no heartburn, no nausea Objective General VS: Last Documented: Result Date Time Pulse Ox 95 09/14 733 B/P 150/76 09/14 733 B/P Mean 101.0 09/14 733 O2 Delivery Room air 09/14 733 Temp 36.6 09/14 733 Pulse 82 09/14 733 Resp 16 09/14 733 O2 Flow Rate 2 09/08 1322 PATIENT WEIGHT: Weight (lb): 165 Weight (oz): 5.55 Weight (kg): 75.000 Medications: Active Meds + DC'd Last 24 Hrs Insulin Human Lispro (HUMALOG) 7 UNIT AC SUBQ Insulin Glargine (Semglee) 10 UNIT BEDTIME SUBQ Carvedilol (COREG) 25 MG C BK DIN PO Furosemide (LASIX) 20 MG BID 9A 5P PO (DC) Methylprednisolone Sodium Succinate (Solu-Medrol 125 MG Vial) 125 MG DAILY 1400 IV Daptomycin (CUBICIN 500MG) 500 MG Q24H IV Sodium Chloride (SODIUM CHLORIDE 0.9%) 50 ML Meropenem (MEROPENEM) 500 MG Q12H IV Sterile Water (WATER FOR INJECTION) 10 ML Hydromorphone HCl (DILAUDID) 0.5 MG DAILY PRN NV N IV (DC) Gabapentin (NEURONTIN) 100 MG Q8HR PO Oxycodone/Acetaminophen (PERCOCET 5/325MG TAB) 2 TAB Q4H PRN PRN PO Ferric Sodium Gluconate Complex (FERRLECIT) 125 MG DAILY IV Sodium Chloride (SODIUM CHLORIDE 0.9%) 100 ML Folic Acid (FOLIC ACID) 2 MG DAILY PO Multivitamins (TAB-A-MOHAN) 1 TAB DAILY PO Carvedilol (COREG) 12.5 MG C BK DIN PO (DC) Insulin Glargine (Semglee) 5 UNIT BEDTIME SUBQ ( DC) Furosemide (LASIX 20MG INJ) 20 MG BLOOD-DOSE BET WEEN IV (CKD) Sodium Chloride (SODIUM CHLORIDE) 10 ML ASDIR IV Pantoprazole Sodium (PROTONIX) 40 MG Q12HR IV Polyethylene Glycol (MIRALAX) 17 GM DAILY PO Sennosides (Senna Lax 8.6 MG TABLET) 8.6 MG MADALYN Y PO Sodium Chloride (SODIUM CHLORIDE) 10 ML ASDIR NV N IV Amitriptyline HCl (ELAVIL) 25 MG BEDTIME PO Zinc Oxide (ZINC OXIDE 30 GM OINTMENT) 1 APPLIC DAILY TOPICAL Sterile Water (WATER FOR IRRIGATION) DRESSING CH GELACIO ASDIR PRN IRR Insulin Human Lispro (HUMALOG) 0 AC HS SUBQ Dextrose/Water (DEXTROSE 10% IN WATER) 125 ML DIR PRN IV (CKD) Dextrose/Water (DEXTROSE 10% IN WATER) 250 ML DIR PRN IV (CKD) Glucagon (GLUCAGON) 1 MG ASDIR PRN IM Lidocaine (LIDODERM) 1 PATCH DAILY TOPICAL Insulin Human Lispro (HUMALOG) 5 UNIT AC SUBQ (D C) Heparin Sodium (HEPARIN 5000 UNITS/ML) 5,000 UNI T Q8HR SUBQ Acetaminophen (TYLENOL) 650 MG Q6H PRN PRN PO Bisacodyl (DULCOLAX) 10 MG DAILY PRN PRN RECTAL Docusate Sodium (COLACE) 100 MG Q12H PRN PRN PO Hydralazine HCl (APRESOLINE) 10 MG Q6H PRN PRN I V Ondansetron HCl (ZOFRAN) 4 MG Q6H PRN PRN IV I O: 24 hour I O ending at 0700: 09/14 0700 09/13 1900 Intake Total 250 Output Total 900 Balance -650 Intake, Oral 250 Number 0 Incontinent Voids Number Voids 0 Output, Urine 900 Dietitian nutrition assessment The data set between the solid lines has been im ported from the dietitian's assessment. BMI Calculated: 26.7 Nutrition related diagnosis: Nutrition diagnosis details: Nutrition problem: Altered nutrition labs Nutrition etiology: DM Nutrition signs and symptoms: HYPER/HYPOGLYCEMIA , A1C >14 Nutrition prescription: CONTINUE DM DIET Dietitian name: You Palmer, DIET Assessment completed: 09/09/22 Physical Exam General appearance: alert, awake, oriented Wound/incision: Location: left foot Site condition: dp/pt 2/4 left. light touch dec reased left foot. ulcer starting at posterior left heel. eccymosis noted . early likely stage 1. left ankle has edema. pain with aggressive ROM left a nkle. dorsal left midfoot is starting to have tissue injury LE vascular pulse assess: 2+ L posterior tibialis, 2+ L dorsalis pedis Considered stroke alert: no Ulcer: Location: DTI dorsal left midfoot Results Findings/Data: Laboratory Tests: 09/14 09/14 09/14 09/13 0736 0526 0509 1937 Chemistry Sodium (134 - 147 mEq/L) 132 L Potassium (3.4 - 5.0 mEq/L) 4.4 Chloride (100 - 108 mEq/L) 104 Carbon Dioxide (21 - 33 mEq/l) 19 L Anion Gap (0 - 20) 14 BUN (7 - 18 mg/dL) 38 H Creatinine (0.6 - 1.3 mg/dL) 2.8 H Glomerular Filtr Rate (90 - 95) 25.4 L Glucose (70 - 110 mg/dL) 325 H POC Glucose (70 - 110 MG/DL) 290 H 334 H 248 H Calcium (8.0 - 10.5 mg/dL) 7.5 L Hematology WBC (4.5 - 11.0 x10 3/uL) 9.5 RBC (4.00 - 5.60 x10 6/uL) 2.83 L Hgb (12.5 - 16.9 g/dL) 8.0 L Hct (37.5 - 50.7 %) 25.3 L MCV (81.0 - 99.0 fL) 89.4 MCH (27.0 - 33.0 pg) 28.3 MCHC (33.0 - 37.0 g/dL) 31.6 L RDW (11.5 - 14.5 %) 14.0 Plt Count (150 - 400 x10 3/uL) 322 MPV (7.0 - 9.0 fL) 9.3 H Neut % (Auto) (56.0 - 77.0 %) 80.2 H Lymph % (Auto) (14.0 - 32.0 %) 13.9 L Boundary % (Auto) (4.8 - 9.0 %) 5.1 Eos % (Auto) (0.3 - 3.7 %) 0.0 L Baso % (Auto) (0.0 - 2.0 %) 0.1 Neut # (Auto) (2.0 - 7.6 x10 3/uL) 7.58 Lymph # (Auto) (1.0 - 3.8 x10 3/uL) 1.31 Boundary # (Auto) (0.1 - 0.8 x10 3/uL) 0.48 Eos # (Auto) (0.0 - 0.2 x10 3/uL) 0.00 Baso # (Auto) (0.0 - 0.2 x10 3/uL) 0.01 Abs Immat Gran (auto) (0.00 - 0.03 x10 3/uL) 0. 07 H Add Manual Diff NO Immature Gran % (0.0 - 2.0 %) 0.7 Nucleated RBC % (0 - 0 %) 0.0 Nucleated RBCs # (Man) (0.0 - 0.1 x10 3/uL) 0.0 0 09/13 09/13 1629 1105 Chemistry POC Glucose (70 - 110 MG/DL) 130 H 307 H Diagnosis, Assessment Plan Free Text A P: DM with neuropathy early decub ulcer left heel OA/edema left ankle early ulcer/DTI dorsal left midfoot zinc oxide to foot and heel foam to heel on IV abx on PO gabapentin offloading boot oralia wraps to ankle, only when OOB with therapy. zinc oxide applied to dorsal left midfoot early ulcer Consultants: cardiology, endocrinology, hospital ist, infectious disease, podiatry Electronically Signed by Liam Pedersen DPM on 0 09/14/22 at 1035 RPT #:[id number] END OF REPORT 2022-09-14 07:15:00-00:00 [facility] ([facility] Rehab Progress Note REPORT#:[id number] REPORT STATUS: Signed DATE:09/14/22 TIME: 714 PATIENT: KARMA ROWLAND UNIT #: [id number] ROOM/BED: 53-1 : 63 AGE: 56 SEX: M ATTEND: Fredy Vences MD ADM AUTHOR: Guero Candelaria * ALL edits or amendments must be made on the el [employer]/computer document * Subjective Chief complaint: Rehab follow-up Doing well Reports thigh and pelvic area edema Eating 75-100% at bedside + BM Denies MCBRIDE/N/V/D/CP 14 systems reviewed and neg. except that above. History of present illness: 56 yo HAM with long h/o DM, and HTN who was admitted for fever, flulike symptoms and altered mental status on 08/18. He was doing well until about 3 days prior to admission when he noted blister to have formed o n the dorsum of his foot. His foot started progressively getting more swollen and the blisters started enlarging and extending to his lateral f oot and ankle. He started feeling weak and nauseated. He was noted to have altered mentation and was brought to our ER. He was noted to be in DKA with Blood sugars grea ter than 600. He was seen by podiatry and surgery for BLE wounds and infectio n. He was treated in ICU for sepsis and DKA. He underwent incisional and excisional debridement of right foot and right ankle by podiatry. Patient also found to have prostate abscess underwent transrectal ultrasound aspiration of a bscess and transurethral resection of prostate and unroofing of abscess b y urology Dr. Bass. Endocrinology treated the DKA and blood sugars m uch improved. Patient's right foot was not salvageable and patient und erwent right BKA by Dr. LEROY on 08/28. Patient blood cultures showe d MRSA. Patient continued on antibiotics as per ID. MRI of the pelvis and foot completed. Patient r equired multiple PRBCs for anemia. Patient was found to have a possible small hematoma of the left calf on ultrasound. He complains of pain and swelling of the left ankle. Patient hemodynamically stable and plans are to be transferred to stepdown unit. He is on heparin subcu for VTE. Af ter surgery he is now being mobilized by PT and OT. He is wearing a [employer] orthotic for right knee /BKA protection. Prior to admission the patient was independent living in a single-story house with his spouse with a few steps up to front and back doo r. 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 is at bedside. Patient denies nausea, vomiting, fever, chills, chest pain, shortness of breath with diz ziness. He is requiring IV Dilaudid for pain control. Mental status back to baseline. Pt is progressing slowly with therapy d/t weakness and pain, self care deficit, decreased endurance and balance, and decreased functional mobility. Pt requiring acute inpt rehab for multidiscipli nary team of nursing, therapy, and physicians. Pt is willing and able to partici- kathleen in 3 hr/day inpt rehab to d/c home safely. Pt' s prior level of function was independent. Objective General VS: Vital Signs: Date Time Temp Pulse Resp B/P B/P Pulse O2 O2 Flow FiO2 Mean Ox Delivery Rate 09/14 0038 98.1 83 16 161/84 109.8 96 09/13 1935 97.5 85 162/81 107.6 95 09/13 1632 97.5 78 18 131/77 95.0 95 Room air 09/13 1108 97.3 88 18 148/78 101.3 90 Room air PATIENT WEIGHT: Weight (lb): 165 Weight (oz): 5.55 Weight (kg): 75.000 Medications: Active Meds + DC'd Last 24 Hrs Insulin Human Lispro (HUMALOG) 7 UNIT AC SUBQ Insulin Glargine (Semglee) 10 UNIT BEDTIME SUBQ Carvedilol (COREG) 25 MG C BK DIN PO Furosemide (LASIX) 20 MG BID 9A 5P PO (DC) Methylprednisolone Sodium Succinate (Solu-Medrol 125 MG Vial) 125 MG DAILY 1400 IV Daptomycin (CUBICIN 500MG) 500 MG Q24H IV Sodium Chloride (SODIUM CHLORIDE 0.9%) 50 ML Meropenem (MEROPENEM) 500 MG Q12H IV Sterile Water (WATER FOR INJECTION) 10 ML Hydromorphone HCl (DILAUDID) 0.5 MG DAILY PRN NV N IV (DC) Gabapentin (NEURONTIN) 100 MG Q8HR PO Oxycodone/Acetaminophen (PERCOCET 5/325MG TAB) 2 TAB Q4H PRN PRN PO Ferric Sodium Gluconate Complex (FERRLECIT) 125 MG DAILY IV Sodium Chloride (SODIUM CHLORIDE 0.9%) 100 ML Folic Acid (FOLIC ACID) 2 MG DAILY PO Multivitamins (TAB-A-MOHAN) 1 TAB DAILY PO Carvedilol (COREG) 12.5 MG C BK DIN PO (DC) Insulin Glargine (Semglee) 5 UNIT BEDTIME SUBQ ( DC) Furosemide (LASIX 20MG INJ) 20 MG BLOOD-DOSE BET WEEN IV (CKD) Sodium Chloride (SODIUM CHLORIDE) 10 ML ASDIR IV Pantoprazole Sodium (PROTONIX) 40 MG Q12HR IV Polyethylene Glycol (MIRALAX) 17 GM DAILY PO Sennosides (Senna Lax 8.6 MG TABLET) 8.6 MG MADALYN Y PO Sodium Chloride (SODIUM CHLORIDE) 10 ML ASDIR NV N IV Amitriptyline HCl (ELAVIL) 25 MG BEDTIME PO Zinc Oxide (ZINC OXIDE 30 GM OINTMENT) 1 APPLIC DAILY TOPICAL Sterile Water (WATER FOR IRRIGATION) DRESSING CH GELACIO ASDIR PRN IRR Insulin Human Lispro (HUMALOG) 0 AC HS SUBQ Dextrose/Water (DEXTROSE 10% IN WATER) 125 ML A SDIR PRN IV (CKD) Dextrose/Water (DEXTROSE 10% IN WATER) 250 ML DIR PRN IV (CKD) Glucagon (GLUCAGON) 1 MG ASDIR PRN IM Lidocaine (LIDODERM) 1 PATCH DAILY TOPICAL Insulin Human Lispro (HUMALOG) 5 UNIT AC SUBQ (D C) Heparin Sodium (HEPARIN 5000 UNITS/ML) 5,000 UNI T Q8HR SUBQ Acetaminophen (TYLENOL) 650 MG Q6H PRN PRN PO Bisacodyl (DULCOLAX) 10 MG DAILY PRN PRN RECTAL Docusate Sodium (COLACE) 100 MG Q12H PRN PRN PO Hydralazine HCl (APRESOLINE) 10 MG Q6H PRN PRN I V Ondansetron HCl (ZOFRAN) 4 MG Q6H PRN PRN IV Dietitian nutrition assessment The data set between the solid lines has been im ported from the dietitian's assessment. BMI Calculated: 26.7 Nutrition related diagnosis: Nutrition diagnosis details: Nutrition problem: Altered nutrition labs Nutrition etiology: DM Nutrition signs and symptoms: HYPER/HYPOGLYCEMIA , A1C >14 Nutrition prescription: CONTINUE DM DIET Dietitian name: You Palmer, DIET Assessment completed: 09/09/22 Functional Progress Functional progress: PT daily note comment: s. patient agreed to PT, reported continued swelling to le, and low back pain 01/01/ . PATIENT SUPINE IN BED, WORKED ON L EEX IN SUPINE ACROSS ALL PLANES, PATIENT WORKED ON BED MOB, CUES TO ROLL TO LEFT AND PUSH OF WITH ELBOW, ABLE TO SIT UP EOB WIT H CGA FOR SAFETY , WORKED ON SQUAT PIVOT TRANSFERS WITH W C SET UP TO LEFT, EDUCATED ON LOCKING BRAKES AND MIN A FOR SQUAT PIVOT TRANSFER TO WC, PATIENT WORKED ON WC PROPULSION AROUND THE UNIT WITH MOD I, 200 FEET X 2. PATIENT WORKED O N NADEGE X IN WC TO INCREASE LE STRENGTH, WC PUSHUPS . WORKED ON SIT TO STANDS IN PARALLEL BARS, WITH CUES TO SHIFT COM FORWARD, AND PUSH OF WC TO IMPROVE SIT TO STANDS. PATIENT WORKED ON SIT TO STANDS X 10 WITH CGA FOR SAFETY PATIENT WORKED ON STATIC STANDING BALANCE WITH PARALLEL BARS AND CGA FOR SAFETY. PATIENT LEFT SITTING UP IN WC WITH CALL BUTTON IN REACH, INSTRUCTIONS TO CALL FOR ASSISTANCE/. A. PATIENT IS PROGRESSING WITH PT, REQUIRES MIN A FOR TRANSFERS AND IMPROVING STANDING IN PARALLEL BA RS WITH CGA . Physical Exam General appearance: alert, awake Psych: alert, normal affect, oriented x 3 HEENT: anicteric, sclera clear Neck: supple, no JVD Cardiovascular: S1/S2, no murmur Respiratory: aerating well, clear bilaterally Abdomen: bowel sounds present, non-distended, so ft, non-tender Skin: no rash, R BKA HEALING. 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 3, CNII-XII intact Results Findings/Data: Laboratory Tests 09/14 1937 1629 1105 0543 Chemistry POC Glucose (70 - 110 MG/DL) 334 H 248 H 130 H 307 H 258 H 09/13 1606 1115 1105 Chemistry Sodium (134 - 147 mEq/L) 133 L Potassium (3.4 - 5.0 mEq/L) 4.6 Chloride (100 - 108 mEq/L) 107 Carbon Dioxide (21 - 33 mEq/l) 19 L Anion Gap (0 - 20) 12 BUN (7 - 18 mg/dL) 28 H Creatinine (0.6 - 1.3 mg/dL) 2.7 H Glomerular Filtr Rate (90 - 95) 26.5 L Glucose (70 - 110 mg/dL) 241 H POC Glucose (70 - 110 MG/DL) 223 H 150 H 68 L Calcium (8.0 - 10.5 mg/dL) 7.8 L Phosphorus (2.5 - 4.9 MG/DL) 4.7 Magnesium (1.80 - 2.40 mg/dL) 1.92 B-Natriuretic Peptide (0 - 100 PG/ML) 297.0 H 09/12 09/12 09/11 09/11 09/11 0604 0420 1933 1532 1114 Chemistry Sodium (134 - 147 mEq/L) 134 Potassium (3.4 - 5.0 mEq/L) 4.2 Chloride (100 - 108 mEq/L) 106 Carbon Dioxide (21 - 33 mEq/l) 20 L Anion Gap (0 - 20) 12 BUN (7 - 18 mg/dL) 31 H Creatinine (0.6 - 1.3 mg/dL) 2.4 H Glomerular Filtr Rate (90 - 95) 30.5 L Glucose (70 - 110 mg/dL) 167 H POC Glucose (70 - 110 MG/DL) 170 H 150 H 93 109 Calcium (8.0 - 10.5 mg/dL) 8.2 Phosphorus (2.5 - 4.9 MG/DL) 4.4 Magnesium (1.80 - 2.40 mg/dL) 1.86 Laboratory Tests 04/22 04/21 04/21 0455 1115 0420 Hematology WBC (4.5 - 11.0 x10 3/uL) 9.8 8.8 RBC (4.00 - 5.60 x10 6/uL) 2.90 L 2.73 L Hgb (12.5 - 16.9 g/dL) 8.2 L 7.7 L Hct (37.5 - 50.7 %) 25.4 L 23.7 L MCV (81.0 - 99.0 fL) 87.6 86.8 MCH (27.0 - 33.0 pg) 28.3 28.2 MCHC (33.0 - 37.0 g/dL) 32.3 L 32.5 L RDW (11.5 - 14.5 %) 13.7 13.8 Plt Count (150 - 400 x10 3/uL) 288 248 MPV (7.0 - 9.0 fL) 10.0 H 9.7 H Neut % (Auto) (56.0 - 77.0 %) 85.3 H 72.3 Lymph % (Auto) (14.0 - 32.0 %) 10.4 L 15.0 Boundary % (Auto) (4.8 - 9.0 %) 3.5 L 7.9 Eos % (Auto) (0.3 - 3.7 %) 0.0 L 3.8 H Baso % (Auto) (0.0 - 2.0 %) 0.1 0.3 Neut # (Auto) (2.0 - 7.6 x10 3/uL) 8.34 H 6.34 Lymph # (Auto) (1.0 - 3.8 x10 3/uL) 1.02 1.31 Boundary # (Auto) (0.1 - 0.8 x10 3/uL) 0.34 0.69 Eos # (Auto) (0.0 - 0.2 x10 3/uL) 0.00 0.33 H Baso # (Auto) (0.0 - 0.2 x10 3/uL) 0.01 0.03 Abs Immat Gran (auto) (0.00 - 0.03 x10 3/uL) 0. 07 H 0.06 H Add Manual Diff NO NO Immature Gran % (0.0 - 2.0 %) 0.7 0.7 Nucleated RBC % (0 - 0 %) 0.0 0.0 Nucleated RBCs # (Man) (0.0 - 0.1 x10 3/uL) 0.0 0 0.00 Eos Smear Total Cells NONE SEEN Laboratory Tests 09/11 09/11 2130 1445 Toxicology Random Vancomycin (mcg/mL) 16.7 18.3 Microbiology Date/Time Procedure - Status Source Growth 09/13 0455 MRSA DNA Surveillance Screen - COMP NASAL Recent Impressions: RADIOLOGY - XR CHEST 1 V 09/12 1418 Report Impression - Status: SIGNED Entered: 09/12/20222028 IMPRESSION: Worsening opacities in the right mid and lower l leonel reyes. Mildly improved left retrocardiac opacities. Impression By: [email or web address] - Abel Browne M.D. 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 Leroy Significant impairment in self-care, ADLs and fu nctional mobility Impaired mobility and gait Acute postoperative pain right BKA Diabetic polyneuropathy DKA, DM 2, poorly controlled, A1c greater than 1 4 PAD MRSA bacteremia/sepsis-treated on acute ERIKA Severe hyponatremia-resolved HTN Acute on chronic anemia requiring multiple trans fusions, possible GI bleed Left calf hematoma Edema and clinical arthritis left ankle Early decubitus to left heel/DTI dorsal left mid foot Prostatic abscess 08/26: S/p transrectal ultrasound aspiration of ab scess and transurethral resection of prostate and unroofing of abscess Echo: EF 55-59%, grade 1 diastolic dysfunction 09/02: JIMENA negative for vegetation MRSA OF NARES 09/08:s/p EGD and colonoscopy. EGD showed mild ga stritis. Colonoscopy showed rectal polyp that was resect ed by snare (tubular adenoma)-repeat colonoscopy in 5 years Plan: -PLOF: Independent with transfers and gait -Amputee rehab program -Continue PT and OT -15/12 rehabilitation nursing care. -Case management for safe discharge planning. -Decubitus prevention -Early decubitus to left heel/DTI dorsal left mi dfoot-zinc oxide to the foot, foam, offloading, podiatry managing -DVT prophylaxis-subcutaneous heparin -Strict fall and safety precautions -Work on bed mobility, transfer training, ADLs, pre-gait and gait exercises -Increase endurance and strength -Monitor pain with therapies -OOB to chair -Monitor p.o. intake and nut rition, albumin 1.3, prealbumin less than 5, dietary consultation, protein supplements to promote hea ling -Diabetes-A1c 14, tight glycemia control- endocr ine on board, insulin adjustments -Endocrinology, ID, podiatry, cardiology, IM con sulted -Pain management adjusting pain medications -Anemia, patient required multiple units of PRBC s on acute, FOBT positive -IV Protonix-consult GI-seri al H H-no evidence of gross bleeding-discussed with Dr. Trinidad -Constipation-abdominal stmfaxfo-LAG-rqpyqy-CW S enokot and MiraLAX, DSP -Right JAK-zyneusf-vonxmzgh resolved, dr martinez changed ihgok-eyxukqa-vwzqnwri NESTOR-TECH -MRSA OF NARES on Bactroban protocol -LLE edema-venous Doppler wi th complex heterogeneous hypoechoic fluid collection in the left calf region measuring 8.4, 2.8, 2.5 cm suggestive of hematoma. On low-dose Lasix. Oralia wrap LLE -LE edema could be related to hypoalbuminemia le ading to third spacing-edema improving -Generalized edema-some shor tness of breath and abdominal distention-cardiology gave a dose of IV Lasix-monitor urine output, da jaz weights-SOB resolved -09/05-venous Doppler of LLE-negative for DVT-Oralia wrap dressing and elevation -Anemia-hemoglobin 8.3, 7.7, transfused 2 units of PRBC on 09/05 -09/08: s/p EGD and colonoscopy. EGD showed mild gastritis. Colonoscopy showed rectal polyp that was resected by snare. Anemia likely secondary to chronic kidney disease. Consult renal. -Pathology of polyp came back as tubular adenoma . recommend repeating colonoscopy in 5 years as per GI -Consider video capsule endoscopy as outpt if ev idence of dropping H/H -Renal ultrasound negative -09/12/2022 laboratory this candelaria lin showed sodium 134, potassium 4.2, CO2 20, BUN 31, creatinine 2.4 continues to worsen, discussed with ID, AIN is probably the etiology of the unexplained deterioration of his renal function, antibiotics to be adjusted by infectious disease, will give Solu-Medrol 125 mg IV daily for 3 days. Significant lower extremity edema, will st art Lasix 20 mg p.o. twice daily-as per renal -Continue antibiotics per ID-Vanco discontinued due to evaded BUN/creatinine -Lasix discontinued. -Started on Solu-Medrol x3 doses -Noted LLE swelling (not new ) and low albumin. may benefit from albumin infusion + Lasix -CXR, BNP and Echo per cardiology -Advance therapies as tolerated-discusse d treatment plan with patient and -Patient progressing with therapies, requires mu ltiple rest breaks. PM R Please see team note. Plan and goals discussed with the patient. I agree with the teams finding ELOS- [09/19] DC-Home with -Home health DME-bedside commode, sliding board, wheelchair, Total time 33 minutes greater than 50% of the ti me spent examining patient, discussing with patient about impaired r enal function, medical issues, anemia, amputee rehab, plan of care, goals, therapies, progress, labs, medications. EMR and MAR is reviewed. All questions answered Rehab attestation: Face to face exam completed. Treatment plan disc ussed with patient. Meets continued stay criteria. Agree with interdiscipl inary treatment plan. Electronically Signed by Guero Candelaria on 0 09/14/22 at 2016 RPT #:[id number] END OF REPORT 2022-09-14 06:12:00-00:00 [facility] Pain Management Progress Note REPORT#:[id number] REPORT STATUS: Signed DATE:09/14/22 TIME: 611 PATIENT: KARMA ROWLAND UNIT #: [id number] [place] [facility] [place] AGE: 56 SEX: M ATTEND: Fredy Vences MD ADM AUTHOR: Charlie Quiroga CLAY MILLER * ALL edits or amendments must be made on the el ectronic/computer document * Charlie Quiroga 09/14/22 0612: Subjective Chief complaint: Patient seen and examined. Chart/MAR reviewed. Patient is doing well so far today. Pain was tolerable last night. Continues to need breakthrough pain medication. Medications e ffective when taken. Patient being seen for Acute postoperative pain, right foot and ankle gangrene, requiring BKA, Constipation Patient is still requiring medications to help w ith managing current problems. Patient is requiring IV narcotics to help manage breakthrough pain No fever/chills, chest pain, orthopnea, nausea/v omiting, pruritus, or hallucinations. 14 point ROS undertaken unremarkable except as n oted Objective General VS/I O: Vital Signs Date Temp Pulse Resp B/P B/P Mean Pulse Ox FiO2 09/13-09/14 97.3-98.4 78-88 16-18 131-162/77-84 95.0-109.8 90-97 Last Documented: Result Date Time Pulse Ox 96 09/14 0038 B/P 161/84 09/148 B/P Mean 109.8 09/14 37 Temp 98.1 09/14 0038 Pulse 83 09/14 0038 Resp 16 09/14 0038 O2 Delivery Room air 09/13 1632 O2 Flow Rate 2 09/08 1322 24 hour I O ending at 0700: 09/14 0700 09/13 1900 Intake Total 250 Output Total 900 Balance -650 Intake, Oral 250 Number 0 Incontinent Voids Number Voids 0 Output, Urine 900 PATIENT WEIGHT: Weight (lb): 165 Weight (oz): 5.55 Weight (kg): 75.000 Medications: Active Meds + DC'd Last 24 Hrs Insulin Human Lispro (HUMALOG) 7 UNIT AC SUBQ Insulin Glargine (Semglee) 10 UNIT BEDTIME SUBQ Carvedilol (COREG) 25 MG C BK DIN PO Furosemide (LASIX) 20 MG BID 9A 5P PO (DC) Methylprednisolone Sodium Succinate (Solu-Medrol 125 MG Vial) 125 MG DAILY 1400 IV Daptomycin (CUBICIN 500MG) 500 MG Q24H IV Sodium Chloride (SODIUM CHLORIDE 0.9%) 50 ML Meropenem (MEROPENEM) 500 MG Q12H IV Sterile Water (WATER FOR INJECTION) 10 ML Hydromorphone HCl (DILAUDID) 0.5 MG DAILY PRN NV N IV (DC) Gabapentin (NEURONTIN) 100 MG Q8HR PO Oxycodone/Acetaminophen (PERCOCET 5/325MG TAB) 2 TAB Q4H PRN PRN PO Ferric Sodium Gluconate Complex (FERRLECIT) 125 MG DAILY IV Sodium Chloride (SODIUM CHLORIDE 0.9%) 100 ML Folic Acid (FOLIC ACID) 2 MG DAILY PO Multivitamins (TAB-A-MOHAN) 1 TAB DAILY PO Carvedilol (COREG) 12.5 MG C BK DIN PO (DC) Insulin Glargine (Semglee) 5 UNIT BEDTIME SUBQ ( DC) Furosemide (LASIX 20MG INJ) 20 MG BLOOD-DOSE BET WEEN IV (CKD) Sodium Chloride (SODIUM CHLORIDE) 10 ML ASDIR IV Pantoprazole Sodium (PROTONIX) 40 MG Q12HR IV Polyethylene Glycol (MIRALAX) 17 GM DAILY PO Sennosides (Senna Lax 8.6 MG TABLET) 8.6 MG MADALYN Y PO Sodium Chloride (SODIUM CHLORIDE) 10 ML ASDIR NV N IV Amitriptyline HCl (ELAVIL) 25 MG BEDTIME PO Zinc Oxide (ZINC OXIDE 30 GM OINTMENT) 1 APPLIC DAILY TOPICAL Sterile Water (WATER FOR IRRIGATION) DRESSING CH GELACIO ASDIR PRN IRR Insulin Human Lispro (HUMALOG) 0 AC HS SUBQ Dextrose/Water (DEXTROSE 10% IN WATER) 125 ML DIR PRN IV (CKD) Dextrose/Water (DEXTROSE 10% IN WATER) 250 ML DIR PRN IV (CKD) Glucagon (GLUCAGON) 1 MG ASDIR PRN IM Lidocaine (LIDODERM) 1 PATCH DAILY TOPICAL Insulin Human Lispro (HUMALOG) 5 UNIT AC SUBQ (D C) Heparin Sodium (HEPARIN 5000 UNITS/ML) 5,000 UNI T Q8HR SUBQ Acetaminophen (TYLENOL) 650 MG Q6H PRN PRN PO Bisacodyl (DULCOLAX) 10 MG DAILY PRN PRN RECTAL Docusate Sodium (COLACE) 100 MG Q12H PRN PRN PO Hydralazine HCl (APRESOLINE) 10 MG Q6H PRN PRN I V Ondansetron HCl (ZOFRAN) 4 MG Q6H PRN PRN IV Physical Exam General appearance: alert, awake, oriented, ment al status normal Head/eyes: atraumatic, EOMI, normocephalic, norm al conjunctiva/sclera, PERRLA ENT: normal ear left, normal ear right, normal n ose, normal pharynx, moist mucosal membranes Neck: full range of motion, no lymphadenopathy, supple/no meningismus Cardiovascular: regular rate rhythm Respiratory: clear to auscultation, no distress, aerating well Abdomen: soft, non-tender, no distention , active bowel sounds in all quarants. 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, no sensory deficit s, CNII-XII grossly intact Considered stroke alert: no Skin: dry, normal color, normal turgor, no rash Psychiatry: normal affect Results Findings/data: Laboratory Tests: 09/14 09/13 09/13 09/13 0526 1937 1629 1105 Chemistry POC Glucose (70 - 110 MG/DL) 334 H 248 H 130 H 307 H Diagnosis, Assessment Plan Free text A P: A/P: Patient is a 56 year old male who presents with: Recent prostate abscess -Status post TURP with unroofing of abscess -IV antibiotics with vancomycin until 09-24-2022 Acute postoperative pain, right foot and ankle g angrene, requiring BKA -Patient is at risk for further amputations or l oss of limb due to comorbid conditions -Status post right BKA 08/28/2022 -DC Check 10/325 1 tablet p.o. every 4 hours as needed pain scale 4 10 -DC Dilaudid 0.5 mg IV daily as needed pain scale 7 10, second line therapy () -Tylenol 650 mg p.o. every 6 hours as needed ofelia n scale 1 3 -Percocet 10/325mg every 4 hours as needed, pain scale 4-10 (09/10) -Lidoderm patch to left ankle daily -IV antibiotics with vancomycin until 09-24-2022 -Local wound care -manageable Diabetic peripheral neuropathy -amitriptyline 25mg PO QHS -Gabapentin 100mg every 8 hours (09/10) -manageable Hypertension -We will monitor hypertension and tachycardia du e to pain, and hypotension as well as bradycardia secondary over sedation with narcotics -Hydralazine as needed Elevated LFTs -08/20/22-AST 51, ALT 22 -09/03/2022-AST 15, ALT 7 -Patient will require close monitoring since he is using narcotics with Tylenol Impaired functional mobility, balance, gait, and endurance -PT/OT Antalgic/Impaired gait -PT/OT -Improve strength, endurance, self-care, gait, b alance, ADLs -Fall precautions per unit protocol -Pain medications as outlined above Constipation -We will monitor while utilizing opioid narcotic medications. -Adequate fluid intake also discussed. -Colace 100 mg p.o. twice daily as needed -Dulcolax 10 mg rectally daily as needed -Senna lax 8.6mg daily -Miralax 17gm daily -manageable Disposition: Past Medical History: Prostate abscess, right fo ot foot and ankle gangrene, diabetes, hypertension, hyperlipidemia Past Surgical History: TURP, right BKA Family History: Noncontributory Social History: Denies tobacco, alcohol, or drug use Allergies: NKDA Patient has failed conservative medical therapy. Patient will require monitoring while utilize na rcotic medications for any adverse effects, and will adjust as needed Plan of care discussed with patient and nurse All diagnostics of last 24 hours been reviewed. Risks versus benefits of opioid medications were reviewed to include, but not limited to respiratory depression, accid ental overdose, altered mental status, sudden , constipation which could result in bowel obstruction, seizures, withdrawal, dependency addiction, risk for falls . Case discussed with Dr Ng whom agrees. Thank you for the consultation. [place] [facility] NURSE: -database searched, no information found Kingsley Ng 10/04/22 1309: Attestations Physician Attestation Agree w/findings plan: The patient was seen and exa mined by Charlie Quiroga. I personally developed the care plan, which was continued by the mid-level provider. I was immediately available. at 0741 Electronically Signed by Kingsley Ng MD on 3 at 1318 RPT #:[id number] END OF REPORT 2022-09-13 16:50:00-00:00 [facility] Endocrinology Progress Note REPORT#:[id number] REPORT STATUS: Signed DATE:09/13/22 TIME: 165 PATIENT: KARMA ROWLAND UNIT #: [id number] ROOM/BED: [place] [id number] : 61 AGE: 56 SEX: M ATTEND: Fredy Vences MD ADM AUTHOR: Braxton Chapin MD * ALL edits or amendments must be made on the el [employer]/computer document * Subjective Patient reports: no complaints Objective General VS: Last Documented: Result Date Time Pulse Ox 95 09/13 1632 B/P 131/77 09/13 1632 B/P Mean 95.0 09/13 1632 O2 Delivery Room air 09/13 1632 Temp 36.4 09/13 1632 Pulse 78 09/13 1632 Resp 18 09/13 1632 O2 Flow Rate 2 09/08 1322 PATIENT WEIGHT: Weight (lb): 165 Weight (oz): 5.55 Weight (kg): 75.000 Medications: Active Meds + DC'd Last 24 Hrs Carvedilol (COREG) 25 MG C BK DIN PO Furosemide (LASIX) 20 MG BID 9A 5P PO (DC) Methylprednisolone Sodium Succinate (Solu-Medrol 125 MG Vial) 125 MG DAILY 1400 IV Daptomycin (CUBICIN 500MG) 500 MG Q24H IV Sodium Chloride (SODIUM CHLORIDE 0.9%) 50 ML Meropenem (MEROPENEM) 500 MG Q12H IV Sterile Water (WATER FOR INJECTION) 10 ML Hydromorphone HCl (DILAUDID) 0.5 MG DAILY PRN NV N IV (DC) Gabapentin (NEURONTIN) 100 MG Q8HR PO Oxycodone/Acetaminophen (PERCOCET 5/325MG TAB) 2 TAB Q4H PRN PRN PO Ferric Sodium Gluconate Complex (FERRLECIT) 125 MG DAILY IV Sodium Chloride (SODIUM CHLORIDE 0.9%) 100 ML Folic Acid (FOLIC ACID) 2 MG DAILY PO Multivitamins (TAB-A-MOHAN) 1 TAB DAILY PO Carvedilol (COREG) 12.5 MG C BK DIN PO (DC) Insulin Glargine (Semglee) 5 UNIT BEDTIME SUBQ Furosemide (LASIX 20MG INJ) 20 MG BLOOD-DOSE BET WEEN IV (CKD) Sodium Chloride (SODIUM CHLORIDE) 10 ML ASDIR IV Pantoprazole Sodium (PROTONIX) 40 MG Q12HR IV Polyethylene Glycol (MIRALAX) 17 GM DAILY PO Sennosides (Senna Lax 8.6 MG TABLET) 8.6 MG MADALYN Y PO Sodium Chloride (SODIUM CHLORIDE) 10 ML ASDIR NV N IV Amitriptyline HCl (ELAVIL) 25 MG BEDTIME PO Zinc Oxide (ZINC OXIDE 30 GM OINTMENT) 1 APPLIC DAILY TOPICAL Sterile Water (WATER FOR IRRIGATION) DRESSING CH GELACIO ASDIR PRN IRR Insulin Human Lispro (HUMALOG) 0 AC HS SUBQ Dextrose/Water (DEXTROSE 10% IN WATER) 125 ML DIR PRN IV (CKD) Dextrose/Water (DEXTROSE 10% IN WATER) 250 ML DIR PRN IV (CKD) Glucagon (GLUCAGON) 1 MG ASDIR PRN IM Lidocaine (LIDODERM) 1 PATCH DAILY TOPICAL Insulin Human Lispro (HUMALOG) 5 UNIT AC SUBQ Heparin Sodium (HEPARIN 5000 UNITS/ML) 5,000 UNI T Q8HR SUBQ Acetaminophen (TYLENOL) 650 MG Q6H PRN PRN PO Bisacodyl (DULCOLAX) 10 MG DAILY PRN PRN RECTAL Docusate Sodium (COLACE) 100 MG Q12H PRN PRN PO Hydralazine HCl (APRESOLINE) 10 MG Q6H PRN PRN I V Ondansetron HCl (ZOFRAN) 4 MG Q6H PRN PRN IV Physical Exam General appearance: alert, awake Diagnosis, Assessment Plan Hospital course to date: Laboratory Tests: 09/13 09/13 09/13 09/12 1105 9230 1151 2016 Chemistry Sodium (134 - 147 mEq/L) 133 L Potassium (3.4 - 5.0 mEq/L) 4.6 Chloride (100 - 108 mEq/L) 107 Carbon Dioxide (21 - 33 mEq/l) 19 L Anion Gap (0 - 20) 12 BUN (7 - 18 mg/dL) 28 H Creatinine (0.6 - 1.3 mg/dL) 2.7 H Glomerular Filtr Rate (90 - 95) 26.5 L Glucose (70 - 110 mg/dL) 241 H POC Glucose (70 - 110 MG/DL) 307 H 258 H 223 H Calcium (8.0 - 10.5 mg/dL) 7.8 L Phosphorus (2.5 - 4.9 MG/DL) 4.7 Magnesium (1.80 - 2.40 mg/dL) 1.92 Hematology WBC (4.5 - 11.0 x10 3/uL) 9.8 RBC (4.00 - 5.60 x10 6/uL) 2.90 L Hgb (12.5 - 16.9 g/dL) 8.2 L Hct (37.5 - 50.7 %) 25.4 L MCV (81.0 - 99.0 fL) 87.6 MCH (27.0 - 33.0 pg) 28.3 MCHC (33.0 - 37.0 g/dL) 32.3 L RDW (11.5 - 14.5 %) 13.7 Plt Count (150 - 400 x10 3/uL) 288 MPV (7.0 - 9.0 fL) 10.0 H Neut % (Auto) (56.0 - 77.0 %) 85.3 H Lymph % (Auto) (14.0 - 32.0 %) 10.4 L Boundary % (Auto) (4.8 - 9.0 %) 3.5 L Eos % (Auto) (0.3 - 3.7 %) 0.0 L Baso % (Auto) (0.0 - 2.0 %) 0.1 Neut # (Auto) (2.0 - 7.6 x10 3/uL) 8.34 H Lymph # (Auto) (1.0 - 3.8 x10 3/uL) 1.02 Boundary # (Auto) (0.1 - 0.8 x10 3/uL) 0.34 Eos # (Auto) (0.0 - 0.2 x10 3/uL) 0.00 Baso # (Auto) (0.0 - 0.2 x10 3/uL) 0.01 Abs Immat Gran (auto) (0.00 - 0.03 x10 3/uL) 0. 07 H Add Manual Diff NO Immature Gran % (0.0 - 2.0 %) 0.7 Nucleated RBC % (0 - 0 %) 0.0 Nucleated RBCs # (Man) (0.0 - 0.1 x10 3/uL) 0.0 0 Microbiology: Date/Time Procedure - Status Source Growth 09/13 454 MRSA DNA Surveillance Screen - RECD NASAL Laboratory Tests: 09/12 09/12 09/12 09/12 1606 1115 1105 0604 Chemistry POC Glucose (70 - 110 MG/DL) 150 H 68 L 170 H B-Natriuretic Peptide (0 - 100 PG/ML) 297.0 H Hematology Eos Smear Total Cells NONE SEEN 09/12 09/11 09/11 0420 2130 1933 Chemistry Sodium (134 - 147 mEq/L) 134 Potassium (3.4 - 5.0 mEq/L) 4.2 Chloride (100 - 108 mEq/L) 106 Carbon Dioxide (21 - 33 mEq/l) 20 L Anion Gap (0 - 20) 12 BUN (7 - 18 mg/dL) 31 H Creatinine (0.6 - 1.3 mg/dL) 2.4 H Glomerular Filtr Rate (90 - 95) 30.5 L Glucose (70 - 110 mg/dL) 167 H POC Glucose (70 - 110 MG/DL) 150 H Calcium (8.0 - 10.5 mg/dL) 8.2 Phosphorus (2.5 - 4.9 MG/DL) 4.4 Magnesium (1.80 - 2.40 mg/dL) 1.86 Hematology WBC (4.5 - 11.0 x10 3/uL) 8.8 RBC (4.00 - 5.60 x10 6/uL) 2.73 L Hgb (12.5 - 16.9 g/dL) 7.7 L Hct (37.5 - 50.7 %) 23.7 L MCV (81.0 - 99.0 fL) 86.8 MCH (27.0 - 33.0 pg) 28.2 MCHC (33.0 - 37.0 g/dL) 32.5 L RDW (11.5 - 14.5 %) 13.8 Plt Count (150 - 400 x10 3/uL) 248 MPV (7.0 - 9.0 fL) 9.7 H Neut % (Auto) (56.0 - 77.0 %) 72.3 Lymph % (Auto) (14.0 - 32.0 %) 15.0 Boundary % (Auto) (4.8 - 9.0 %) 7.9 Eos % (Auto) (0.3 - 3.7 %) 3.8 H Baso % (Auto) (0.0 - 2.0 %) 0.3 Neut # (Auto) (2.0 - 7.6 x10 3/uL) 6.34 Lymph # (Auto) (1.0 - 3.8 x10 3/uL) 1.31 Boundary # (Auto) (0.1 - 0.8 x10 3/uL) 0.69 Eos # (Auto) (0.0 - 0.2 x10 3/uL) 0.33 H Baso # (Auto) (0.0 - 0.2 x10 3/uL) 0.03 Abs Immat Gran (auto) (0.00 - 0.03 x10 3/uL) 0. 06 H Add Manual Diff NO Immature Gran % (0.0 - 2.0 %) 0.7 Nucleated RBC % (0 - 0 %) 0.0 Nucleated RBCs # (Man) (0.0 - 0.1 x10 3/uL) 0.0 0 Toxicology Random Vancomycin (mcg/mL) 16.7 Laboratory Tests: 09/11 09/11 09/11 09/11 09/11 1532 1445 1114 0541 0445 Chemistry Sodium (134 - 147 mEq/L) 134 Potassium (3.4 - 5.0 mEq/L) 4.3 Chloride (100 - 108 mEq/L) 105 Carbon Dioxide (21 - 33 mEq/l) 22 Anion Gap (0 - 20) 12 BUN (7 - 18 mg/dL) 26 H Creatinine (0.6 - 1.3 mg/dL) 2.0 H Glomerular Filtr Rate (90 - 95) 38.0 L Glucose (70 - 110 mg/dL) 109 POC Glucose (70 - 110 MG/DL) 93 109 127 H Calcium (8.0 - 10.5 mg/dL) 8.3 Phosphorus (2.5 - 4.9 MG/DL) 4.7 Magnesium (1.80 - 2.40 mg/dL) 1.90 Hematology WBC (4.5 - 11.0 x10 3/uL) 7.9 RBC (4.00 - 5.60 x10 6/uL) 2.94 L Hgb (12.5 - 16.9 g/dL) 8.3 L Hct (37.5 - 50.7 %) 25.8 L MCV (81.0 - 99.0 fL) 87.8 MCH (27.0 - 33.0 pg) 28.2 MCHC (33.0 - 37.0 g/dL) 32.2 L RDW (11.5 - 14.5 %) 13.7 Plt Count (150 - 400 x10 3/uL) 269 MPV (7.0 - 9.0 fL) 9.8 H Neut % (Auto) (56.0 - 77.0 %) 67.9 Lymph % (Auto) (14.0 - 32.0 %) 16.1 Boundary % (Auto) (4.8 - 9.0 %) 9.1 H Eos % (Auto) (0.3 - 3.7 %) 5.6 H Baso % (Auto) (0.0 - 2.0 %) 0.5 Neut # (Auto) (2.0 - 7.6 x10 3/uL) 5.35 Lymph # (Auto) (1.0 - 3.8 x10 3/uL) 1.27 Boundary # (Auto) (0.1 - 0.8 x10 3/uL) 0.72 Eos # (Auto) (0.0 - 0.2 x10 3/uL) 0.44 H Baso # (Auto) (0.0 - 0.2 x10 3/uL) 0.04 Abs Immat Gran (auto) (0.00 - 0.03 0.06 H x10 3/uL) Add Manual Diff NO Immature Gran % (0.0 - 2.0 %) 0.8 Nucleated RBC % (0 - 0 %) 0.0 Nucleated RBCs # (Man) (0.0 - 0.1 0.00 x10 3/uL) Toxicology Random Vancomycin (mcg/mL) 18.3 09/10 1851 Chemistry POC Glucose (70 - 110 MG/DL) 97 Laboratory Tests: 09/10 09/10 09/10 09/10 09/10 1715 1625 1430 1007 0545 Chemistry Sodium (134 - 147 mEq/L) 135 Potassium (3.4 - 5.0 mEq/L) 4.2 Chloride (100 - 108 mEq/L) 107 Carbon Dioxide (21 - 33 mEq/l) 21 Anion Gap (0 - 20) 11 BUN (7 - 18 mg/dL) 25 H Creatinine (0.6 - 1.3 mg/dL) 1.9 H Glomerular Filtr Rate (90 - 95) 40.4 L Glucose (70 - 110 mg/dL) 156 H POC Glucose (70 - 110 MG/DL) 75 58 L 213 H Calcium (8.0 - 10.5 mg/dL) 8.3 Phosphorus (2.5 - 4.9 MG/DL) 4.6 Magnesium (1.80 - 2.40 mg/dL) 1.89 Hematology WBC (4.5 - 11.0 x10 3/uL) 8.6 RBC (4.00 - 5.60 x10 6/uL) 3.08 L Hgb (12.5 - 16.9 g/dL) 8.6 L Hct (37.5 - 50.7 %) 26.7 L MCV (81.0 - 99.0 fL) 86.7 MCH (27.0 - 33.0 pg) 27.9 MCHC (33.0 - 37.0 g/dL) 32.2 L RDW (11.5 - 14.5 %) 13.8 Plt Count (150 - 400 x10 3/uL) 265 MPV (7.0 - 9.0 fL) 9.6 H Neut % (Auto) (56.0 - 77.0 %) 69.4 Lymph % (Auto) (14.0 - 32.0 %) 15.5 Boundary % (Auto) (4.8 - 9.0 %) 8.5 Eos % (Auto) (0.3 - 3.7 %) 5.5 H Baso % (Auto) (0.0 - 2.0 %) 0.4 Neut # (Auto) (2.0 - 7.6 x10 3/uL) 5.94 Lymph # (Auto) (1.0 - 3.8 x10 3/uL) 1.33 Boundary # (Auto) (0.1 - 0.8 x10 3/uL) 0.73 Eos # (Auto) (0.0 - 0.2 x10 3/uL) 0.47 H Baso # (Auto) (0.0 - 0.2 x10 3/uL) 0.03 Abs Immat Gran (auto) (0.00 - 0.03 0.06 H x10 3/uL) Add Manual Diff NO Immature Gran % (0.0 - 2.0 %) 0.7 Nucleated RBC % (0 - 0 %) 0.0 Nucleated RBCs # (Man) (0.0 - 0.1 0.00 x10 3/uL) Toxicology Random Vancomycin (mcg/mL) 15.7 09/10 09/09 6152 4611 Chemistry POC Glucose (70 - 110 MG/DL) 154 H 102 Recent Impressions: ULTRASOUND - US RETROPERITONEAL COM 09/10 1311 Report Impression - Status: SIGNED Entered: 09/10/2022 1503 IMPRESSION: No acute findings. Impression By: Yared Mares M.D . Laboratory Tests: 09/09 09/09 09/09 09/09 09/09 1606 1526 1403 1049 0524 Chemistry POC Glucose (70 - 110 MG/DL) 109 30 L 90 128 H Toxicology Random Vancomycin (mcg/mL) 15.4 09/09 09/08 09/08 0500 1955 1828 Chemistry Sodium (134 - 147 mEq/L) 136 Potassium (3.4 - 5.0 mEq/L) 4.2 Chloride (100 - 108 mEq/L) 107 Carbon Dioxide (21 - 33 mEq/l) 22 Anion Gap (0 - 20) 11 BUN (7 - 18 mg/dL) 23 H Creatinine (0.6 - 1.3 mg/dL) 1.5 H Glomerular Filtr Rate (90 - 95) 53.6 L Glucose (70 - 110 mg/dL) 125 H POC Glucose (70 - 110 MG/DL) 106 Calcium (8.0 - 10.5 mg/dL) 8.2 Phosphorus (2.5 - 4.9 MG/DL) 4.0 Magnesium (1.80 - 2.40 mg/dL) 1.89 Iron (35 - 150 mcg/dL) 10 L TIBC (260 - 445 mcg/dL) 138 L % Saturation (14 - 34 %) 7.2 L Unsat Iron Binding (mcg/dL) 128 Ferritin (23.9 - 336.2 ng/mL) 700.5 H Lactate Dehydrogenase (87 - 241 IUnits/L) 193 Hematology WBC (4.5 - 11.0 x10 3/uL) 9.2 RBC (4.00 - 5.60 x10 6/uL) 3.01 L Hgb (12.5 - 16.9 g/dL) 8.5 L Hct (37.5 - 50.7 %) 25.9 L MCV (81.0 - 99.0 fL) 86.0 MCH (27.0 - 33.0 pg) 28.2 MCHC (33.0 - 37.0 g/dL) 32.8 L RDW (11.5 - 14.5 %) 13.8 Plt Count (150 - 400 x10 3/uL) 263 MPV (7.0 - 9.0 fL) 9.7 H Neut % (Auto) (56.0 - 77.0 %) 69.1 Lymph % (Auto) (14.0 - 32.0 %) 16.1 Boundary % (Auto) (4.8 - 9.0 %) 9.2 H Eos % (Auto) (0.3 - 3.7 %) 4.7 H Baso % (Auto) (0.0 - 2.0 %) 0.4 Neut # (Auto) (2.0 - 7.6 x10 3/uL) 6.38 Lymph # (Auto) (1.0 - 3.8 x10 3/uL) 1.49 Boundary # (Auto) (0.1 - 0.8 x10 3/uL) 0.85 H Eos # (Auto) (0.0 - 0.2 x10 3/uL) 0.43 H Baso # (Auto) (0.0 - 0.2 x10 3/uL) 0.04 Abs Immat Gran (auto) (0.00 - 0.03 x10 3/uL) 0. 05 H Add Manual Diff NO Immature Gran % (0.0 - 2.0 %) 0.5 Nucleated RBC % (0 - 0 %) 0.0 Nucleated RBCs # (Man) (0.0 - 0.1 x10 3/uL) 0.0 0 Retic Count (auto) (0.3 - 2.3 %) 1.3 Laboratory Tests: 09/08 09/08 09/08 09/08 09/08 1611 1318 1045 1033 0616 Chemistry POC Glucose (70 - 110 MG/DL) 120 H 101 99 101 Toxicology Random Vancomycin (mcg/mL) 15.8 09/08 09/07 09/07 0615 2238 2110 Chemistry Sodium (134 - 147 mEq/L) 135 Potassium (3.4 - 5.0 mEq/L) 4.6 Chloride (100 - 108 mEq/L) 107 Carbon Dioxide (21 - 33 mEq/l) 22 Anion Gap (0 - 20) 10 BUN (7 - 18 mg/dL) 22 H Creatinine (0.6 - 1.3 mg/dL) 1.4 H Glomerular Filtr Rate (90 - 95) 58.3 L Glucose (70 - 110 mg/dL) 100 POC Glucose (70 - 110 MG/DL) 135 H 127 H Calcium (8.0 - 10.5 mg/dL) 8.1 Magnesium (1.80 - 2.40 mg/dL) 1.58 L Total Creatine Kinase (46 - 171 Units/L) 22 L Albumin (3.4 - 5.0 g/dL) 1.30 L Prealbumin (16.0 - 40.0 mg/dL) < 5.0 L Hematology WBC (4.5 - 11.0 x10 3/uL) 9.1 RBC (4.00 - 5.60 x10 6/uL) 3.05 L Hgb (12.5 - 16.9 g/dL) 8.5 L Hct (37.5 - 50.7 %) 26.2 L MCV (81.0 - 99.0 fL) 85.9 MCH (27.0 - 33.0 pg) 27.9 MCHC (33.0 - 37.0 g/dL) 32.4 L RDW (11.5 - 14.5 %) 13.5 Plt Count (150 - 400 x10 3/uL) 231 MPV (7.0 - 9.0 fL) 9.6 H Neut % (Auto) (56.0 - 77.0 %) 73.3 Lymph % (Auto) (14.0 - 32.0 %) 13.7 L Boundary % (Auto) (4.8 - 9.0 %) 7.2 Eos % (Auto) (0.3 - 3.7 %) 4.8 H Baso % (Auto) (0.0 - 2.0 %) 0.3 Neut # (Auto) (2.0 - 7.6 x10 3/uL) 6.64 Lymph # (Auto) (1.0 - 3.8 x10 3/uL) 1.24 Boundary # (Auto) (0.1 - 0.8 x10 3/uL) 0.65 Eos # (Auto) (0.0 - 0.2 x10 3/uL) 0.43 H Baso # (Auto) (0.0 - 0.2 x10 3/uL) 0.03 Abs Immat Gran (auto) (0.00 - 0.03 x10 3/uL) 0. 06 H Add Manual Diff NO Immature Gran % (0.0 - 2.0 %) 0.7 Nucleated RBC % (0 - 0 %) 0.0 Nucleated RBCs # (Man) (0.0 - 0.1 x10 3/uL) 0.0 0 Laboratory Tests: 09/07 09/07 09/07 09/07 09/07 1554 1137 1127 0618 0510 Chemistry Creatinine (0.6 - 1.3 mg/dL) 1.4 H POC Glucose (70 - 110 MG/DL) 112 H 51 L 42 L 1 35 H Hematology Hgb (12.5 - 16.9 g/dL) 8.4 L Hct (37.5 - 50.7 %) 26.2 L Toxicology Random Vancomycin (mcg/mL) 14.7 09/06 09/06 2226 2108 Chemistry POC Glucose (70 - 110 MG/DL) 192 H 211 H Laboratory Tests: 09/06 09/06 09/06 09/06 09/06 1553 1547 1051 0538 0536 Chemistry Creatinine (0.6 - 1.3 mg/dL) 1.4 H POC Glucose (70 - 110 MG/DL) 119 H 92 124 H Hematology Hgb (12.5 - 16.9 g/dL) 8.6 L Hct (37.5 - 50.7 %) 26.1 L Toxicology Vancomycin Trough (10.0 - 20.0 mcg/mL) 18.9 09/05 1910 Chemistry POC Glucose (70 - 110 MG/DL) 117 H Laboratory Tests: 09/05 09/05 09/04 09/04 09/04 1149 0615 2042 1630 1557 Chemistry Sodium (134 - 147 mEq/L) 134 Potassium (3.4 - 5.0 mEq/L) 5.0 Chloride (100 - 108 mEq/L) 109 H Carbon Dioxide (21 - 33 mEq/l) 21 Anion Gap (0 - 20) 9 BUN (7 - 18 mg/dL) 24 H Creatinine (0.6 - 1.3 mg/dL) 1.3 Glomerular Filtr Rate (90 - 95) 63.7 L Glucose (70 - 110 mg/dL) 75 POC Glucose (70 - 110 MG/DL) 74 103 128 H Calcium (8.0 - 10.5 mg/dL) 7.9 L Hematology Hgb (12.5 - 16.9 g/dL) 7.1 L Hct (37.5 - 50.7 %) 22.7 L Toxicology Vancomycin Trough (10.0 - 20.0 mcg/mL) 12.8 Microbiology: Date/Time Procedure - Status Source Growth 09/04 1739 Occult Blood - COMP STOOL Recent Impressions: RADIOLOGY - XR ABDOMEN 1V (KUB) 09/04 1648 Report Impression - Status: SIGNED Entered: 09/04/2022 1757 IMPRESSION: Benign appearance of the abdomen. Impression By: [email or web address] - Roger Parra M.D . ULTRASOUND - DUP VEIN UNI/LTD 09/05 1146 Report Impression - Status: SIGNED Entered: 09/05/2022 1333 IMPRESSION: 1. No evidence of deep vein thrombosis. 2. Complex heterogeneous hypoechoic fluid collec tion in the left calf region measuring 8.4 x 2.8 x 2.5 cm; there is no internal vascularity or peripheral hyperemia. May represe nt a hematoma. Impression By: [email or web address] - Mert Ga M.D. RADIOLOGY - XR CHEST 1 V 09/05 1432 Report Impression - Status: SIGNED Entered: 09/05/2022 1515 IMPRESSION: Minimal bibasilar pulmonary opacities Impression By: [email or web address] - Hakeem Perez Laboratory Tests: 09/04 09/04 09/04 09/04 09/04 1630 1557 1100 1031 0816 Chemistry POC Glucose (70 - 110 MG/DL) 128 H 107 99 Hematology Hgb (12.5 - 16.9 g/dL) 7.7 L Hct (37.5 - 50.7 %) 23.7 L Toxicology Vancomycin Trough (10.0 - 20.0 mcg/mL) 12.8 09/04 09/04 09/03 09/03 0721 0540 1944 1836 Chemistry POC Glucose (70 - 110 MG/DL) 87 124 H Hematology Hgb (12.5 - 16.9 g/dL) 6.8 L Hct (37.5 - 50.7 %) 21.2 L Toxicology Vancomycin Peak (30 - 40 MCG/ML) 27.4 L Microbiology: Date/Time Procedure - Status Source Growth 09/04 1037 Occult Blood - COLB STOOL 1.Diabetes mellitus type 2 uncontrolled complica tions. 2. 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 4. Sepsis 5. Prostate abscess. 6. Anemia Blood sugar 241-307 mg/dL.H/H 8.11/17. Adjust insulin dose. PT and OT. Electronically Signed by Braxton Chapin MD on at 1651 RPT #:[id number] END OF REPORT 2022-09-13 16:00:00-00:00 [facility] Podiatry Progress Note REPORT#:[id number] REPORT STATUS: Signed DATE:09/13/22 TIME: 1600 PATIENT: KARMA ROWLAND UNIT #: [id number] ROOM/BED: [place] [id number] : 63 AGE: 56 SEX: M ATTEND: Fredy Vences MD ADM AUTHOR: Liam Pedersen DPM * ALL edits or amendments must be made on the [employer] document * Subjective Chief complaint: left heel ulcer. left ankle pain Patient reports: no confusion, no diarrhea, no d izziness, no fatigue, no heartburn, no nausea Objective General VS: Last Documented: Result Date Time Pulse Ox 90 09/13 1108 B/P 148/78 09/13 1108 B/P Mean 101.3 09/13 1108 O2 Delivery Room air 09/13 1108 Temp 36.3 09/13 1108 Pulse 88 09/13 1108 Resp 18 09/13 1108 O2 Flow Rate 2 09/08 1322 PATIENT WEIGHT: Weight (lb): 165 Weight (oz): 5.55 Weight (kg): 75.000 Medications: Active Meds + DC'd Last 24 Hrs Carvedilol (COREG) 25 MG C BK DIN PO Furosemide (LASIX) 20 MG BID 9A 5P PO (DC) Methylprednisolone Sodium Succinate (Solu-Medrol 125 MG Vial) 125 MG DAILY 1400 IV Daptomycin (CUBICIN 500MG) 500 MG Q24H IV Sodium Chloride (SODIUM CHLORIDE 0.9%) 50 ML Meropenem (MEROPENEM) 500 MG Q12H IV Sterile Water (WATER FOR INJECTION) 10 ML Hydromorphone HCl (DILAUDID) 0.5 MG DAILY PRN NV N IV (DC) Gabapentin (NEURONTIN) 100 MG Q8HR PO Oxycodone/Acetaminophen (PERCOCET 5/325MG TAB) 2 TAB Q4H PRN PRN PO Ferric Sodium Gluconate Complex (FERRLECIT) 125 MG DAILY IV Sodium Chloride (SODIUM CHLORIDE 0.9%) 100 ML Folic Acid (FOLIC ACID) 2 MG DAILY PO Multivitamins (TAB-A-MOHAN) 1 TAB DAILY PO Carvedilol (COREG) 12.5 MG C BK DIN PO (DC) Insulin Glargine (Semglee) 5 UNIT BEDTIME SUBQ Furosemide (LASIX 20MG INJ) 20 MG BLOOD-DOSE BET WEEN IV (CKD) Sodium Chloride (SODIUM CHLORIDE) 10 ML ASDIR IV Pantoprazole Sodium (PROTONIX) 40 MG Q12HR IV Polyethylene Glycol (MIRALAX) 17 GM DAILY PO Sennosides (Senna Lax 8.6 MG TABLET) 8.6 MG MADALYN Y PO Sodium Chloride (SODIUM CHLORIDE) 10 ML ASDIR NV N IV Amitriptyline HCl (ELAVIL) 25 MG BEDTIME PO Zinc Oxide (ZINC OXIDE 30 GM OINTMENT) 1 APPLIC DAILY TOPICAL Sterile Water (WATER FOR IRRIGATION) DRESSING CH GELACIO ASDIR PRN IRR Insulin Human Lispro (HUMALOG) 0 AC HS SUBQ Dextrose/Water (DEXTROSE 10% IN WATER) 125 ML DIR PRN IV (CKD) Dextrose/Water (DEXTROSE 10% IN WATER) 250 ML DIR PRN IV (CKD) Glucagon (GLUCAGON) 1 MG ASDIR PRN IM Lidocaine (LIDODERM) 1 PATCH DAILY TOPICAL Insulin Human Lispro (HUMALOG) 5 UNIT AC SUBQ Heparin Sodium (HEPARIN 5000 UNITS/ML) 5,000 UNI T Q8HR SUBQ Acetaminophen (TYLENOL) 650 MG Q6H PRN PRN PO Bisacodyl (DULCOLAX) 10 MG DAILY PRN PRN RECTAL Docusate Sodium (COLACE) 100 MG Q12H PRN PRN PO Hydralazine HCl (APRESOLINE) 10 MG Q6H PRN PRN I V Ondansetron HCl (ZOFRAN) 4 MG Q6H PRN PRN IV I O: 24 hour I O ending at 0700: 09/13 0700 09/12 1900 Intake Total 720 Output Total 1000 1350 Balance -1000 -630 Intake, Oral 720 Number 2 Bowel Movements Number 0 0 Incontinent Voids Number Voids 0 0 Output, Urine 1000 1350 Dietitian nutrition assessment The data set between the solid lines has been im ported from the dietitian's assessment. BMI Calculated: 26.7 Nutrition related diagnosis: Nutrition diagnosis details: Nutrition problem: Altered nutrition labs Nutrition etiology: DM Nutrition signs and symptoms: HYPER/HYPOGLYCEMIA , A1C >14 Nutrition prescription: CONTINUE DM DIET Dietitian name: You Palmer, DIET Assessment completed: 09/09/22 Physical Exam General appearance: alert, awake, oriented Wound/incision: Location: left foot Site condition: dp/pt 2/4 left. light touch dec reased left foot. ulcer starting at posterior left heel. eccymosis noted . early likely stage 1. left ankle has edema. pain with aggressive ROM left a nkle., dorsal left midfoot is starting to have tissue injury LE vascular pulse assess: 2+ L posterior tibialis, 2+ L dorsalis pedis Considered stroke alert: no Ulcer: Location: DTI dorsal left midfoot Diagnosis, Assessment Plan Free Text A P: DM with neuropathy early decub ulcer left heel OA/edema left ankle early ulcer/DTI dorsal left midfoot zinc oxide to foot and heel foam to heel on IV abx on PO gabapentin offloading boot oralia wraps to ankle, only when OOB with therapy. zinc oxide applied to dorsal left midfoot early ulcer Consultants: cardiology, endocrinology, hospital ist, infectious disease, podiatry Electronically Signed by Liam Pedersen DPM on 0 09/13/22 at 1601 RPT #:[id number] END OF REPORT 2022-09-13 15:53:00-00:00 [facility] ([facility]) Nephrology Progress Note REPORT#:[id number] REPORT STATUS: Signed DATE:09/13/22 TIME: 1553 PATIENT: KARMA ROWLAND UNIT #: [id number] ROOM/BED: [place] [address] : 63 AGE: 56 SEX: M ATTEND: Fredy Vences MD ADM AUTHOR: Elodia Neri MD * ALL edits or amendments must be made on the [employer]/computer document * Subjective Chief complaint: Infected foot HPI: Patient seen and evaluated on 09/09/2022, note [facility], records reviewed and orders placed on 09/08/2022, 56-year-old male with history of diabetes mellitus type 2, hypertension and per ipheral vascular disease who was initially admitted to acute care with altered mental status and rig ht foot infection/gangrene, 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 Patient had persistent anemia requiring blood transfusion. H is fecal occult blood was positive and his creatinine was 1.2 and increase d to 1.4 today, laboratories today showed hemoglobin 8.5, platelet 231, blood count 9.1, sodium 135, potassium 4.6, CO2 22, BUN 22, creatinin e 1.4. Renal consult was requested for evaluation management of pako vated BUN and creatinine and if his decreased GFR is contributing to his anemia. Review of Systems ROS comments: Constitutional: Reports: fatigue. Denies: chills, fever. Skin: Reports: swelling. Denies: rash. Allergy/Immun: Denies: hives, itching. Eyes: Denies: redness, discharge. ENT: Denies: ear drainage, ear ringing. Respiratory: Denies: hemoptysis, SOB. Cardiovascular: Denies: chest pain. Objective General VS/I O: Vital Signs: Date Time Temp Pulse Resp B/P B/P Pulse O2 O2 F low FiO2 Mean Ox Delivery Rate 09/13 1108 36.3 88 18 148/78 101.3 90 Room air 09/13 0658 36.9 80 18 146/79 101.3 97 Room air 09/12 2315 36.6 86 18 148/74 98.7 93 09/12 1920 36.6 85 18 157/80 105.3 97 24 hour I O ending at 0700: 09/13 0700 09/12 1900 Intake Total 720 Output Total 1000 1350 Balance -1000 -630 Intake, Oral 720 Number 2 Bowel Movements Number 0 0 Incontinent Voids Number Voids 0 0 Output, Urine 1000 1350 PATIENT WEIGHT: Weight (lb): 165 Weight (oz): 5.55 Weight (kg): 75.000 Medications Active Meds + DC'd Last 24 Hrs Carvedilol (COREG) 25 MG C BK DIN PO Furosemide (LASIX) 20 MG BID 9A 5P PO Methylprednisolone Sodium Succinate (Solu-Medrol 125 MG Vial) 125 MG DAILY 1400 IV Daptomycin (CUBICIN 500MG) 500 MG Q24H IV Sodium Chloride (SODIUM CHLORIDE 0.9%) 50 ML Meropenem (MEROPENEM) 500 MG Q12H IV Sterile Water (WATER FOR INJECTION) 10 ML Hydromorphone HCl (DILAUDID) 0.5 MG DAILY PRN NV N IV (DC) Gabapentin (NEURONTIN) 100 MG Q8HR PO Oxycodone/Acetaminophen (PERCOCET 5/325MG TAB) 2 TAB Q4H PRN PRN PO Ferric Sodium Gluconate Complex (FERRLECIT) 125 MG DAILY IV Sodium Chloride (SODIUM CHLORIDE 0.9%) 100 ML Folic Acid (FOLIC ACID) 2 MG DAILY PO Multivitamins (TAB-A-MOHAN) 1 TAB DAILY PO Carvedilol (COREG) 12.5 MG C BK DIN PO (DC) Insulin Glargine (Semglee) 5 UNIT BEDTIME SUBQ Furosemide (LASIX 20MG INJ) 20 MG BLOOD-DOSE BET WEEN IV (CKD) Sodium Chloride (SODIUM CHLORIDE) 10 ML ASDIR IV Pantoprazole Sodium (PROTONIX) 40 MG Q12HR IV Polyethylene Glycol (MIRALAX) 17 GM DAILY PO Sennosides (Senna Lax 8.6 MG TABLET) 8.6 MG MADALYN Y PO Sodium Chloride (SODIUM CHLORIDE) 10 ML ASDIR NV N IV Amitriptyline HCl (ELAVIL) 25 MG BEDTIME PO Zinc Oxide (ZINC OXIDE 30 GM OINTMENT) 1 APPLIC DAILY TOPICAL Sterile Water (WATER FOR IRRIGATION) DRESSING CH GELACIO ASDIR PRN IRR Insulin Human Lispro (HUMALOG) 0 AC HS SUBQ Dextrose/Water (DEXTROSE 10% IN WATER) 125 ML DIR PRN IV (CKD) Dextrose/Water (DEXTROSE 10% IN WATER) 250 ML DIR PRN IV (CKD) Glucagon (GLUCAGON) 1 MG ASDIR PRN IM Lidocaine (LIDODERM) 1 PATCH DAILY TOPICAL Insulin Human Lispro (HUMALOG) 5 UNIT AC SUBQ Heparin Sodium (HEPARIN 5000 UNITS/ML) 5,000 UNI T Q8HR SUBQ Acetaminophen (TYLENOL) 650 MG Q6H PRN PRN PO Bisacodyl (DULCOLAX) 10 MG DAILY PRN PRN RECTAL Docusate Sodium (COLACE) 100 MG Q12H PRN PRN PO Hydralazine HCl (APRESOLINE) 10 MG Q6H PRN PRN I V Ondansetron HCl (ZOFRAN) 4 MG Q6H PRN PRN IV Physical Exam General appearance: alert, awake Head/eyes: atraumatic, normocephalic ENT: normal nose Neck: non-tender, supple/no meningismus Cardiovascular: normal heart sounds, no rub Respiratory: aerating well, symmetric expansion Abdomen: non-tender, soft Genitourinary: no flank pain Extremities: non-tender, no edema Musculoskeletal: no CVA tenderness, no tendernes s 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 Diabetes mellitus: Insulin: Monitor bloo d sugar closely and adjust medications as needed, followed by endocrinology. Hypertension: Blood pressure is not well controlled, increase Coreg to 12.5 mg p.o. 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 We will check serum immu nofixation. Acute kidney injury: We will check renal bladder ultrasound, check postvoid residual, check urine protein creatinine ratio Hypomagnesemia: We will supplement 09/10/2022 laboratory this mo rning showed sodium 135, potassium 4.2, CO2 21, BUN 25, creatinine 1.9 continues to worsen, etiology unclear, however his development some eosinophili a not sure if he is developing AIN, suggest changing cefepime to a different class of antibiotic if p ossible, will check renal bladder ultrasound 09/11/2022 laboratory this mo rning showed sodium 134, potassium 4.3, CO2 22, BUN 26, creatinine 2 up from 1.9, hopefully creatini ne is plateauing, renal ultrasound negative. 09/12/2022 laboratory this mo rning showed sodium 134, potassium 4.2, CO2 20, BUN 31, creatinine 2.4 continues to worsen, discussed with ID, AIN is probably the etiology of the unexplained deterioration of his renal function, antibiotics to be adjusted by infectious disease, will give Solu-Medrol 125 mg IV daily for 3 days. Significant lower extremity edema, will st art Lasix 20 mg p.o. twice daily. 09.13.22: pt was seen and examined. Very thirsty. serum creatinine is worsening today. Vancomycin was stopped yesterday and Solu medrol was started. Mild hypovolemic hyponatremia. Will DC lasix and monitor his renal functions. BP is well controlled. Consultants: cardiology, endocrinology, hospital ist, infectious disease, podiatry Electronically Signed by Elodia Neri MD on 0 09/13/22 at 1556 RPT #:[id number] END OF REPORT 2022-09-13 15:16:00-00:00 [facility] Hospitalist Progress Note REPORT#:[id number] REPORT STATUS: Signed DATE:09/13/22 TIME: 1516 PATIENT: KARMA ROWLAND UNIT #: [id number] ROOM/BED: [place] [address] : 61 AGE: 56 SEX: M ATTEND: Fredy Vences MD ADM AUTHOR: Meera Chavira DO * ALL edits or amendments must be made on the el [employer]/computer document * Subjective Chief complaint: Pt notes his BS is high. Objective General VS/I O: Vital Signs: Date Time Temp Pulse Resp B/P B/P Pulse O2 O2 F low FiO2 Mean Ox Delivery Rate 09/13 1108 97.3 88 18 148/78 101.3 90 Room air 09/13 0658 98.4 80 18 146/79 101.3 97 Room air 09/12 2315 97.9 86 18 148/74 98.7 93 09/12 1920 97.9 85 18 157/80 105.3 97 09/12 1522 97.5 82 18 152/80 103.8 94 Room air 24 hour I O ending at 0700: 09/13 0700 09/12 1900 Intake Total 720 Output Total 1000 1350 Balance -1000 -630 Intake, Oral 720 Number 2 Bowel Movements Number 0 0 Incontinent Voids Number Voids 0 0 Output, Urine 1000 1350 PATIENT WEIGHT: Weight (lb): 165 Weight (oz): 5.55 Weight (kg): 75.000 Medications: Active Meds + DC'd Last 24 Hrs Carvedilol (COREG) 25 MG C BK DIN PO Furosemide (LASIX) 20 MG BID 9A 5P PO Methylprednisolone Sodium Succinate (Solu-Medrol 125 MG Vial) 125 MG DAILY 1400 IV Daptomycin (CUBICIN 500MG) 500 MG Q24H IV Sodium Chloride (SODIUM CHLORIDE 0.9%) 50 ML Meropenem (MEROPENEM) 500 MG Q12H IV Sterile Water (WATER FOR INJECTION) 10 ML Hydromorphone HCl (DILAUDID) 0.5 MG DAILY PRN NV N IV (DC) Gabapentin (NEURONTIN) 100 MG Q8HR PO Oxycodone/Acetaminophen (PERCOCET 5/325MG TAB) 2 TAB Q4H PRN PRN PO Ferric Sodium Gluconate Complex (FERRLECIT) 125 MG DAILY IV Sodium Chloride (SODIUM CHLORIDE 0.9%) 100 ML Folic Acid (FOLIC ACID) 2 MG DAILY PO Multivitamins (TAB-A-MOHAN) 1 TAB DAILY PO Carvedilol (COREG) 12.5 MG C BK DIN PO (DC) Insulin Glargine (Semglee) 5 UNIT BEDTIME SUBQ Furosemide (LASIX 20MG INJ) 20 MG BLOOD-DOSE BET WEEN IV (CKD) Sodium Chloride (SODIUM CHLORIDE) 10 ML ASDIR I V Pantoprazole Sodium (PROTONIX) 40 MG Q12HR IV Polyethylene Glycol (MIRALAX) 17 GM DAILY PO Sennosides (Senna Lax 8.6 MG TABLET) 8.6 MG MADALYN Y PO Sodium Chloride (SODIUM CHLORIDE) 10 ML ASDIR NV N IV Amitriptyline HCl (ELAVIL) 25 MG BEDTIME PO Zinc Oxide (ZINC OXIDE 30 GM OINTMENT) 1 APPLIC DAILY TOPICAL Sterile Water (WATER FOR IRRIGATION) DRESSING CH GELACIO ASDIR PRN IRR Insulin Human Lispro (HUMALOG) 0 AC HS SUBQ Dextrose/Water (DEXTROSE 10% IN WATER) 125 ML DIR PRN IV (CKD) Dextrose/Water (DEXTROSE 10% IN WATER) 250 ML DIR PRN IV (CKD) Glucagon (GLUCAGON) 1 MG ASDIR PRN IM Lidocaine (LIDODERM) 1 PATCH DAILY TOPICAL Insulin Human Lispro (HUMALOG) 5 UNIT AC SUBQ Heparin Sodium (HEPARIN 5000 UNITS/ML) 5,000 UNI T Q8HR SUBQ Acetaminophen (TYLENOL) 650 MG Q6H PRN PRN PO Bisacodyl (DULCOLAX) 10 MG DAILY PRN PRN RECTAL Docusate Sodium (COLACE) 100 MG Q12H PRN PRN PO Hydralazine HCl (APRESOLINE) 10 MG Q6H PRN PRN I V Ondansetron HCl (ZOFRAN) 4 MG Q6H PRN PRN IV Physical Exam General appearance: alert, awake, oriented, no a cute distress, pleasant, conversational, mental status normal, no respira tory distress Head/Eyes: atraumatic, normocephalic ENT: moist mucosal membranes Neck: no JVD Cardiovascular: normal heart sounds, regular rat e rhythm Respiratory: aerating well, clear to auscultatio n Abdomen: non-tender, normal bowel sounds Genitourinary: no bladder distention Extremities: moves all, normal capillary refill Musculoskeletal: normal inspection, painless ran ge of motion 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 X 3, 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 Considered stroke alert: no Skin: dry, intact Psychiatry: normal affect, normal judgment/insig ht Results Findings/Data: Laboratory Tests 09/13 09/13 09/13 09/12 09/12 1105 [id number] 2017 1606 Chemistry Sodium (134 - 147 mEq/L) 133 L Potassium (3.4 - 5.0 mEq/L) 4.6 Chloride (100 - 108 mEq/L) 107 Carbon Dioxide (21 - 33 mEq/l) 19 L Anion Gap (0 - 20) 12 BUN (7 - 18 mg/dL) 28 H Creatinine (0.6 - 1.3 mg/dL) 2.7 H Glomerular Filtr Rate (90 - 95) 26.5 L Glucose (70 - 110 mg/dL) 241 H POC Glucose (70 - 110 MG/DL) 307 H 258 H 223 H 150 H Calcium (8.0 - 10.5 mg/dL) 7.8 L Phosphorus (2.5 - 4.9 MG/DL) 4.7 Magnesium (1.80 - 2.40 mg/dL) 1.92 Laboratory Tests 09/13 0455 Hematology WBC (4.5 - 11.0 x10 3/uL) 9.8 RBC (4.00 - 5.60 x10 6/uL) 2.90 L Hgb (12.5 - 16.9 g/dL) 8.2 L Hct (37.5 - 50.7 %) 25.4 L MCV (81.0 - 99.0 fL) 87.6 MCH (27.0 - 33.0 pg) 28.3 MCHC (33.0 - 37.0 g/dL) 32.3 L RDW (11.5 - 14.5 %) 13.7 Plt Count (150 - 400 x10 3/uL) 288 MPV (7.0 - 9.0 fL) 10.0 H Neut % (Auto) (56.0 - 77.0 %) 85.3 H Lymph % (Auto) (14.0 - 32.0 %) 10.4 L Boundary % (Auto) (4.8 - 9.0 %) 3.5 L Eos % (Auto) (0.3 - 3.7 %) 0.0 L Baso % (Auto) (0.0 - 2.0 %) 0.1 Neut # (Auto) (2.0 - 7.6 x10 3/uL) 8.34 H Lymph # (Auto) (1.0 - 3.8 x10 3/uL) 1.02 Boundary # (Auto) (0.1 - 0.8 x10 3/uL) 0.34 Eos # (Auto) (0.0 - 0.2 x10 3/uL) 0.00 Baso # (Auto) (0.0 - 0.2 x10 3/uL) 0.01 Abs Immat Gran (auto) (0.00 - 0.03 x10 3/uL) 0. 07 H Add Manual Diff NO Immature Gran % (0.0 - 2.0 %) 0.7 Nucleated RBC % (0 - 0 %) 0.0 Nucleated RBCs # (Man) (0.0 - 0.1 x10 3/uL) 0.0 0 Diagnosis, Assessment Plan Consultants: cardiology, endocrinology, hospital ist, infectious disease, podiatry Free Text DxA P Notes Free text DxA P notes: Gangrene of right foot s/p Below- knee amputatio n Prostate abscess MRSA bacteremia Hx of Diabetes, Diabetic neuropathy HTN ERIKA PLANS: Continue with PT/OT per primary Wound care as directed Hepain PPX IV iron BP consistently high, increase Metoprolol to 25 mg BID BS high today, yesterday was low. Likely due to steroids. IF BS remains elevated, will adjust insulin but likely related to short course of high dose steroids started by Nephrology for AIN trend renal function closely, check labs in am pain control Electronically Signed by Meera Chavira DO on 3 at 1520 RPT #:[id number] END OF REPORT 2022-09-13 15:08:00-00:00 [id number] [place] [id number] PATIENT NAME: KARMA ROWLAND ADMIT DATE: 09/02 ACCOUNT NO: [id number] [place] [facility] [place] 56 REPORT TYPE: eECHOCARDIOGRAM REPORT SEX: M ADMITTING PHYSICIAN:Mj Vences MD ATTENDING PHYSICIAN:Mj Vences MD *[facility]* [address] [place] [address] Limited Transthoracic Echocardiogram Patient: Karma Rowland Study Date: 09/12/2022 BP: 136 / 76 Location: [facility] URN: [id number] : 1965 Age: 56 Height: 66 in / 167.6 cm Gender: M Weight: 164 .7 lb / 74.8 kg BMI/BSA: 26.6 kg/m 2 / 1.88 m 2 *Ordering Physician: * Rohit BenitezInterpreting Physician: * Gianni Parham MD *Team Cdl Driver: * HÉCTOR Ivy Indications: EVAL LV SYSTOLIC/DIASTOLIC FUNCTION . Study data: Transthoracic echocardiogram, limite d study. Procedure: Transthoracic echocardiography was performed. Im ages were obtained using a [employer] cardiac ultrasound machine. Image quality w as good. Limited 2D and limited spectral Doppler. Location: Bedside. [facility] status: Inpatient. Patient room number: 537. Study statu s: Routine. Findings Left ventricle: The cavity size is normal. Wall thickness is increased. Systolic function is normal. The estimated eject ion fraction is 55-60%. Wall motion is normal; there are no regional wal l motion abnormalities. Left ventricular diastolic function parameters a re indeterminate. Left atrium: The atrium is mildly dilated. PATIENT NAME: KARMA ROWLAND [id number] Right atrium: The atrium is normal in size. Aorta: Aortic root: The aortic root is normal in size. Aortic valve: The valve is structurally normal. The valve is trileaflet. Mitral valve: The valve is structurally normal. There is no evidence of stenosis. There is trivial regurgita tion. Tricuspid valve: The valve is structurally felisa l. There is no regurgitation. Pericardium: There is no pericardial effusion. Systemic veins: Inferior vena cava: The vessel is normal in size . The respirophasic diameter changes are in the normal range (= 50%) . Measurements Left ventricle Value Ref SAMANTHA, LAX 4.6 cm 4.2 - 5.8 ESD, LAX 2.9 cm 2.5 - 4.0 ESD/bsa, LAX 1.5 cm/m 2 1.3 - 2.1 FS, LAX 37 % 25 - 43 ESD/bsa major ax, A4C 4.1 cm/m 2 --------- SAMANTHA/bsa minor ax, A4C 4.1 cm/m 2 --------- SAMANTHA major ax, A2C 9.0 cm --------- ESD major ax, A2C 7.4 cm --------- SAMANTHA/bsa major ax, A2C 4.8 cm/m 2 --------- ESD/bsa major ax, A2C 3.9 cm/m 2 --------- PW, ED 1.4 cm 0.6 - 1.0 IVS/PW, ED 0.8 --------- EF 67 % 52 - 72 E', lat yonatan, TDI 14.1 cm/sec >=10.0 E/e', lat yonatan, TDI 7 --------- E', med yonatan, TDI 12.1 cm/sec >=7.0 E/e', med yonatan, TDI 9 --------- E', avg, TDI 13.1 cm/sec --------- E/e', avg, TDI 8 <=14 Ventricular septum Value Ref IVS, ED 1.1 cm 0.6 - 1.0 Left atrium Value Ref Vol/bsa, ES, 1-p A4C 30 ml/m 2 12 - 37 Vol, ES, 2-p 69 ml --------- Vol/bsa, ES, 2-p 37 ml/m 2 16 - 34 Vol/bsa, ES, A/L 32 ml/m 2 16 - 34 AP dim, ES MM 4.0 cm 3.0 - 4.0 LA/Ao root ratio, MM 1.17 --------- Aortic valve Value Ref Leaflet sep, MM 2.08 cm --------- Mitral valve Value Ref Peak E 0.13 m/sec --------- Peak A 1.06 m/sec --------- PATIENT NAME: KARMA ROWLAND [id number] Mean v, D 0.82 m/sec --------- VTI leaflet coapt 25.5 cm --------- Decel time 184 ms --------- PHT 52 ms --------- Mean grad, D 2.8 mm Hg --------- Peak grad, D 4.5 mm Hg --------- Peak E/A ratio 0.98 --------- MVA, PHT 4.2 cm 2 --------- Tricuspid valve Value Ref TR peak v 2.3 m/sec <=2.8 Peak RV-RA grad, S 21 mm Hg --------- Aortic root Value Ref Root diam, ED MM 3.46 cm --------- Conclusions Summary: 1. Left ventricle: The cavity size is normal. Wa ll thickness is increased. Systolic function is normal. The est imated ejection fraction is 55-60%. Wall motion is normal; ther e are no regional wall motion abnormalities. Left ventricular diastoli c function parameters are indeterminate. 2. Left atrium: The atrium is mildly dilated. 3. Pericardium, extracardiac: There is no perica rdial effusion. Prepared and electronically signed by Gianni Parham MD 09/13/2022 15:08 at 1508 PATIENT NAME: KARMA ROWLAND [id number] 2527-04-22 07:46:00-00:00 HCACL [facility] ([facility]) Pain Management Progress Note REPORT#:[id number] REPORT STATUS: Signed DATE:09/13/22 TIME: 07 PATIENT: KARMA ROWLAND UNIT #: [id number] ROOM/BED: [place] [address] : [birth year] AGE: 56 SEX: M ATTEND: Fredy Vences MD ADM AUTHOR: Charlie Quiroga CLAY MILLER * ALL edits or amendments must be made on the [employer] document * Subjective Chief complaint: Patient seen and examined. Chart/MAR reviewed. Patient states pain still occurs, but the pain m edications are appropriately relieving the pain and witho ut side effects. Ready to stop IV pain medications. Patient being seen for Acute postoperative pain, right foot and ankle gangrene, requiring BKA, Constipation Patient is still requiring medications to help w ith managing current problems. Patient is requiring IV narcotics to help manage breakthrough pain No fever/chills, chest pain, orthopnea, nausea/v omiting, pruritus, or hallucinations. 14 point ROS undertaken unremarkable except as n oted Objective General VS/I O: Vital Signs Date Temp Pulse Resp B/P B/P Mean Pulse Ox FiO2 09/12-09/13 97.5-98.4 80-86 18 146-157/74-80 98 .7-105.3 93-97 Last Documented: Result Date Time Pulse Ox 97 09/13 0658 B/P 146/79 09/13 0658 B/P Mean 101.3 09/13 0658 O2 Delivery Room air 09/13 657 Temp 98.4 09/13 0658 Pulse 80 09/13 0658 Resp 18 09/13 0658 O2 Flow Rate 2 09/08 1322 24 hour I O ending at 0700: 09/13 0700 09/12 1900 Intake Total 720 Output Total 1000 1350 Balance -1000 -630 Intake, Oral 720 Number 2 Bowel Movements Number 0 0 Incontinent Voids Number Voids 0 0 Output, Urine 1000 1350 PATIENT WEIGHT: Weight (lb): 165 Weight (oz): 5.55 Weight (kg): 75.000 Medications: Active Meds + DC'd Last 24 Hrs Furosemide (LASIX) 20 MG BID 9A 5P PO Methylprednisolone Sodium Succinate (Solu-Medrol 125 MG Vial) 125 MG DAILY 1400 IV Daptomycin (CUBICIN 500MG) 500 MG Q24H IV Sodium Chloride (SODIUM CHLORIDE 0.9%) 50 ML Meropenem (MEROPENEM) 500 MG Q12H IV Sterile Water (WATER FOR INJECTION) 10 ML Hydromorphone HCl (DILAUDID) 0.5 MG DAILY PRN NV N IV Cefepime HCl (MAXIPIME) 1 GM Q8H IV (DC) Sodium Chloride (SODIUM CHLORIDE) 10 ML Gabapentin (NEURONTIN) 100 MG Q8HR PO Hydromorphone HCl (DILAUDID) 0.5 MG Q12H PRN NV N IV (DC) Oxycodone/Acetaminophen (PERCOCET 5/325MG TAB) 2 TAB Q4H PRN PRN PO Ferric Sodium Gluconate Complex (FERRLECIT) 125 MG DAILY IV Sodium Chloride (SODIUM CHLORIDE 0.9%) 100 ML Folic Acid (FOLIC ACID) 2 MG DAILY PO Multivitamins (TAB-A-MOHAN) 1 TAB DAILY PO Carvedilol (COREG) 12.5 MG C BK DIN PO Insulin Glargine (Semglee) 5 UNIT BEDTIME SUBQ Furosemide (LASIX 20MG INJ) 20 MG BLOOD-DOSE BET WEEN IV (CKD) Sodium Chloride (SODIUM CHLORIDE) 10 ML ASDIR IV Pantoprazole Sodium (PROTONIX) 40 MG Q12HR IV Polyethylene Glycol (MIRALAX) 17 GM DAILY PO Sennosides (Senna Lax 8.6 MG TABLET) 8.6 MG MADALYN Y PO Sodium Chloride (SODIUM CHLORIDE) 10 ML ASDIR NV N IV Amitriptyline HCl (ELAVIL) 25 MG BEDTIME PO Zinc Oxide (ZINC OXIDE 30 GM OINTMENT) 1 APPLIC DAILY TOPICAL Sterile Water (WATER FOR IRRIGATION) DRESSING CH GELACIO ASDIR PRN IRR Insulin Human Lispro (HUMALOG) 0 AC HS SUBQ Dextrose/Water (DEXTROSE 10% IN WATER) 125 ML DIR PRN IV (CKD) Dextrose/Water (DEXTROSE 10% IN WATER) 250 ML DIR PRN IV (CKD) Glucagon (GLUCAGON) 1 MG ASDIR PRN IM Lidocaine (LIDODERM) 1 PATCH DAILY TOPICAL Insulin Human Lispro (HUMALOG) 5 UNIT AC SUBQ Miscellaneous Information (VANCOMYCIN PHARMACY T O DOSE) 1 EACH ASDIR IV (DC) Heparin Sodium (HEPARIN 5000 UNITS/ML) 5,000 UNI T Q8HR SUBQ Acetaminophen (TYLENOL) 650 MG Q6H PRN PRN PO Bisacodyl (DULCOLAX) 10 MG DAILY PRN PRN RECTAL Docusate Sodium (COLACE) 100 MG Q12H PRN PRN PO Hydralazine HCl (APRESOLINE) 10 MG Q6H PRN PRN I V Ondansetron HCl (ZOFRAN) 4 MG Q6H PRN PRN IV Physical Exam General appearance: alert, awake, oriented, no a cute distress Head/eyes: atraumatic, EOMI, normocephalic, norm al conjunctiva/sclera, PERRLA ENT: normal ear left, normal ear right, normal n ose, normal pharynx, moist mucosal membranes Neck: full range of motion, no lymphadenopathy, supple/no meningismus Cardiovascular: regular rate rhythm Respiratory: clear to auscultation, no distress, aerating well Abdomen: soft, non-tender, no distention , active bowel sounds in all quarants. 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, no sensory deficit s, CNII-XII grossly intact Considered stroke alert: no Skin: dry, normal color, normal turgor Psychiatry: normal affect Results Findings/data: Laboratory Tests: 09/13 09/13 09/12 09/12 09/12 0543 0455 2017 1606 1115 Chemistry Sodium (134 - 147 mEq/L) 133 L Potassium (3.4 - 5.0 mEq/L) 4.6 Chloride (100 - 108 mEq/L) 107 Carbon Dioxide (21 - 33 mEq/l) 19 L Anion Gap (0 - 20) 12 BUN (7 - 18 mg/dL) 28 H Creatinine (0.6 - 1.3 mg/dL) 2.7 H Glomerular Filtr Rate (90 - 95) 26.5 L Glucose (70 - 110 mg/dL) 241 H POC Glucose (70 - 110 MG/DL) 258 H 223 H 150 H Calcium (8.0 - 10.5 mg/dL) 7.8 L Phosphorus (2.5 - 4.9 MG/DL) 4.7 Magnesium (1.80 - 2.40 mg/dL) 1.92 B-Natriuretic Peptide (0 - 100 PG/ML) 297.0 H Hematology Eos Smear Total Cells NONE SEEN 09/12 1105 Chemistry POC Glucose (70 - 110 MG/DL) 68 L Microbiology: Date/Time Procedure - Status Source Growth 09/13 0455 MRSA DNA Surveillance Screen - RECD NASAL Recent Impressions: RADIOLOGY - XR CHEST 1 V 09/12 1418 Report Impression - Status: SIGNED Entered: 09/12/20222028 IMPRESSION: Worsening opacities in the right mid and lower l leonel reyes. Mildly improved left retrocardiac opacities. Impression By: [email or web address] - Abel Browne M.D. Diagnosis, Assessment Plan Free text A P: A/P: Patient is a 56 year old male who presents with: Recent prostate abscess -Status post TURP with unroofing of abscess -IV antibiotics with vancomycin until 09-24-2022 Acute postoperative pain, right foot and ankle g angrene, requiring BKA -Patient is at risk for further amputations or l oss of limb due to comorbid conditions -Status post right BKA 08/28/2022 -DC Check 10/325 1 tablet p.o. every 4 hours as needed pain scale 4 10 -Tylenol 650 mg p.o. every 6 hours as needed ofelia n scale 1 3 -DC Dilaudid 0.5 mg IV daily as needed pain scale 7 10, second line therapy () -Percocet 10/325mg every 4 hours as needed, pain scale 4-10 (09/10) -Lidoderm patch to left ankle daily -IV antibiotics with vancomycin until 09-24-2022 -Local wound care -manageable Diabetic peripheral neuropathy -amitriptyline 25mg PO QHS -Gabapentin 100mg every 8 hours (09/10) -manageable Hypertension -We will monitor hypertension and tachycardia du e to pain, and hypotension as well as bradycardia secondary over sedation with narcotics -Hydralazine as needed Elevated LFTs -08/20/22-AST 51, ALT 22 -09/03/2022-AST 15, ALT 7 -Patient will require close monitoring since he is using narcotics with Tylenol Impaired functional mobility, balance, gait, and endurance -PT/OT Antalgic/Impaired gait -PT/OT -Improve strength, endurance, self-care, gait, b alance, ADLs -Fall precautions per unit protocol -Pain medications as outlined above Constipation -We will monitor while utilizing opioid narcotic medications. -Adequate fluid intake also discussed. -Colace 100 mg p.o. twice daily as needed -Dulcolax 10 mg rectally daily as needed -Senna lax 8.6mg daily -Miralax 17gm daily -manageable Disposition: Past Medical History: Prostate abscess, right fo ot foot and ankle gangrene, diabetes, hypertension, hyperlipidemia Past Surgical History: TURP, right BKA Family History: Noncontributory Social History: Denies tobacco, alcohol, or drug use Allergies: NKDA Patient has failed conservative medical therapy. Patient will require monitoring while utilize na rcotic medications for any adverse effects, and will adjust as needed Plan of care discussed with patient and nurse All diagnostics of last 24 hours been reviewed. Risks versus benefits of opioid medications were reviewed to include, but not limited to respiratory depression, accid ental overdose, altered mental status, sudden , constipation which could result in bowel obstruction, seizures, withdrawal, dependency addiction, risk for falls . Case discussed with Dr Ng whom agrees. Thank you for the consultation. [place] [facility] NURSE: -database searched, no information found at 1453 Electronically Signed by Kingsley Ng MD on 3 at 3448 RPT #:[id number] END OF REPORT 2022-09-13 06:34:00-00:00 [facility]ACL [facility] Progress Note REPORT#:[id number] REPORT STATUS: Signed DATE:09/13/22 TIME: 633 PATIENT: KARMA ROWLAND UNIT #: [id number] [place] [facility] [place] [place] AGE: 56 SEX: M ATTEND: Fredy Vences MD ADM AUTHOR: Guero Candelaria * ALL edits or amendments must be made on the el [employer]/computer document * Subjective Chief complaint: Rehab follow-up Doing well Reports thigh and pelvic area edema Eating 75-100% at bedside + BM Denies MCBRIDE/N/V/D/CP 14 systems reviewed and neg. except that above. History of present illness: 56 yo HAM with long h/o DM, and HTN who was admitted for fever, flulike symptoms and altered mental status on 08/18. He was doing well until about 3 days prior to admission when he noted blister to have formed o n the dorsum of his foot. His foot started progressively getting more swollen and the blisters started enlarging and extending to his lateral f oot and ankle. He started feeling weak and nauseated. He was noted to have altered mentation and was brought to our ER. He was noted to be in DKA with Blood sugars grea ter than 600. He was seen by podiatry and surgery for BLE wounds and infectio n. He was treated in ICU for sepsis and DKA. He underwent incisional and excisional debridement of right foot and right ankle by podiatry. Patient also found to have prostate abscess underwent transrectal ultrasound aspiration of a bscess and transurethral resection of prostate and unroofing of abscess b y urology Dr. Bass. Endocrinology treated the DKA and blood sugars m uch improved. Patient's right foot was not salvageable and patient und erwent right BKA by Dr. LEROY on 08/28. Patient blood cultures showe d MRSA. Patient continued on antibiotics as per ID. MRI of the pelvis and foot completed. Patient r equired multiple PRBCs for anemia. Patient was found to have a possible small hematoma of the left calf on ultrasound. He complains of pain and swelling of the left ankle. Patient hemodynamically stable and plans are to be transferred to stepdown unit. He is on heparin subcu for VTE. Af ter surgery he is now being mobilized by PT and OT. He is wearing a [employer] orthotic for right knee /BKA protection. Prior to admission the patient was independent living in a single-story house with his spouse with a few steps up to front and back doo r. 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 is at bedside. Patient denies nausea, vomiting, fever, chills, chest pain, shortness of breath with diz ziness. He is requiring IV Dilaudid for pain control. Mental status back to baseline. Pt is progressing slowly with therapy d/t weakness and pain, self care deficit, decreased endurance and balance, and decreased functional mobility. Pt requiring acute inpt rehab for multidiscipli nary team of nursing, therapy, and physicians. Pt is willing and able to partici- kathleen in 3 hr/day inpt rehab to d/c home safely. Pt' s prior level of function was independent. Objective General VS: Vital Signs: Date Time Temp Pulse Resp B/P B/P Pulse O2 O2 F low FiO2 Mean Ox Delivery Rate 09/12 2315 97.9 86 18 148/74 98.7 93 09/12 1920 97.9 85 18 157/80 105.3 97 09/12 1522 97.5 82 18 152/80 103.8 94 Room air 09/12 0647 97.9 83 17 136/76 96.2 95 Room air PATIENT WEIGHT: Weight (lb): 165 Weight (oz): 5.55 Weight (kg): 75.000 Medications: Active Meds + DC'd Last 24 Hrs Furosemide (LASIX) 20 MG BID 9A 5P PO Methylprednisolone Sodium Succinate (Solu-Medrol 125 MG Vial) 125 MG DAILY 1400 IV Daptomycin (CUBICIN 500MG) 500 MG Q24H IV Sodium Chloride (SODIUM CHLORIDE 0.9%) 50 ML Meropenem (MEROPENEM) 500 MG Q12H IV Sterile Water (WATER FOR INJECTION) 10 ML Hydromorphone HCl (DILAUDID) 0.5 MG DAILY PRN P RN IV Cefepime HCl (MAXIPIME) 1 GM Q8H IV (DC) Sodium Chloride (SODIUM CHLORIDE) 10 ML Gabapentin (NEURONTIN) 100 MG Q8HR PO Hydromorphone HCl (DILAUDID) 0.5 MG Q12H PRN PRN IV (DC) Oxycodone/Acetaminophen (PERCOCET 5/325MG TAB) 2 TAB Q4H PRN PRN PO Ferric Sodium Gluconate Complex (FERRLECIT) 125 MG DAILY IV Sodium Chloride (SODIUM CHLORIDE 0.9%) 100 ML Folic Acid (FOLIC ACID) 2 MG DAILY PO Multivitamins (TAB-A-MOHAN) 1 TAB DAILY PO Carvedilol (COREG) 12.5 MG C BK DIN PO Insulin Glargine (Semglee) 5 UNIT BEDTIME SUBQ Furosemide (LASIX 20MG INJ) 20 MG BLOOD-DOSE BET WEEN IV (CKD) Sodium Chloride (SODIUM CHLORIDE) 10 ML ASDIR IV Pantoprazole Sodium (PROTONIX) 40 MG Q12HR IV Polyethylene Glycol (MIRALAX) 17 GM DAILY PO Sennosides (Senna Lax 8.6 MG TABLET) 8.6 MG MADALYN Y PO Sodium Chloride (SODIUM CHLORIDE) 10 ML ASDIR NV N IV Amitriptyline HCl (ELAVIL) 25 MG BEDTIME PO Zinc Oxide (ZINC OXIDE 30 GM OINTMENT) 1 APPLIC DAILY TOPICAL Sterile Water (WATER FOR IRRIGATION) DRESSING CH GELACIO ASDIR PRN IRR Insulin Human Lispro (HUMALOG) 0 AC HS SUBQ Dextrose/Water (DEXTROSE 10% IN WATER) 125 ML DIR PRN IV (CKD) Dextrose/Water (DEXTROSE 10% IN WATER) 250 ML DIR PRN IV (CKD) Glucagon (GLUCAGON) 1 MG ASDIR PRN IM Lidocaine (LIDODERM) 1 PATCH DAILY TOPICAL Insulin Human Lispro (HUMALOG) 5 UNIT AC SUBQ Miscellaneous Information (VANCOMYCIN PHARMACY T O DOSE) 1 EACH ASDIR IV (DC) Heparin Sodium (HEPARIN 5000 UNITS/ML) 5,000 UNI T Q8HR SUBQ Acetaminophen (TYLENOL) 650 MG Q6H PRN PRN PO Bisacodyl (DULCOLAX) 10 MG DAILY PRN PRN RECTAL Docusate Sodium (COLACE) 100 MG Q12H PRN PRN PO Hydralazine HCl (APRESOLINE) 10 MG Q6H PRN PRN I V Ondansetron HCl (ZOFRAN) 4 MG Q6H PRN PRN IV Functional Progress Functional progress: PT daily note comment: s. patient agreed to PT, reported continued swelling to le, and low back pain 01/01/ O. PATIENT SUPINE IN BED, WORKED ON L EEX IN SUPINE ACROSS ALL PLANES, PATIENT WORKED ON BED MOB, CUES TO ROLL TO LEFT AND PUSH OF WITH ELBOW, ABLE TO SIT UP EOB WITH CGA FOR SAFETY , WORKED ON SQUAT PIVOT TRANSFERS WITH W C SET UP TO LEFT, EDUCATED ON LOCKING BRAKES AND MIN A FOR SQUAT PIVOT TRANSFER TO WC, PATIENT WORKED ON WC PROPULSION AROUND THE UNIT WITH MOD I, 200 FEET X 2. PATIENT WORKED O N NADEGE X IN WC TO INCREASE LE STRENGTH, WC PUSHUPS . WORKED ON SIT TO STANDS IN PARALLEL BARS, WITH CUES TO SHIFT COM FORWARD, AND PUSH OF WC TO IMPROVE SIT TO STANDS. PATIENT WORKED ON SIT TO STANDS X 10 WITH CGA FOR SAFETY PATIENT WORKED ON STATIC STANDING BALANCE WITH PARALLEL BARS AND CGA FOR SAFETY. PATIENT LEFT SITTING UP IN WC WITH CALL BUTTON IN REACH, INSTRUCTIONS TO CALL FOR ASSISTANCE/. A. PATIENT IS PROGRESSING WITH PT, REQUIRES MIN A FOR TRANSFERS AND IMPROVING STANDING IN PARALLEL BA RS WITH CGA . Physical Exam General appearance: alert, awake Psych: alert, normal affect, oriented x 3 HEENT: anicteric, sclera clear Neck: supple, no JVD Cardiovascular: S1/S2, no murmur Respiratory: aerating well, clear bilaterally Abdomen: bowel sounds present, non-distended, so ft, non-tender Skin: no rash, R BKA HEALING. 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 Gangrene of right foot 2. 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 MRSA bacteremia 4. Cellulitis of foot, right 5. DKA (diabetic ketoacidosis) 6. Hyperglycemia 7. ERIKA (acute kidney injury) 8. Postoperative pain 9. Acute anemia 10. Prostate abscess 11. 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 Leroy Significant impairment in self-care, ADLs and fu nctional mobility Impaired mobility and gait Acute postoperative pain right BKA Diabetic polyneuropathy DKA, DM 2, poorly controlled, A1c greater than 1 4 PAD MRSA bacteremia/sepsis-treated on acute ERIKA Severe hyponatremia-resolved HTN Acute on chronic anemia requiring multiple trans fusions, possible GI bleed Left calf hematoma Edema and clinical arthritis left ankle Early decubitus to left heel/DTI dorsal left mid foot Prostatic abscess 08/26: S/p transrectal ultrasound aspiration of ab scess and transurethral resection of prostate and unroofing of abscess Echo: EF 55-59%, grade 1 diastolic dysfunction 09/02: JIMENA negative for vegetation MRSA OF NARES 09/08:s/p EGD and colonoscopy. EGD showed mild ga stritis. Colonoscopy showed rectal polyp that was resect ed by snare (tubular adenoma)-repeat colonoscopy in 5 years Plan: -PLOF: Independent with transfers and gait -Amputee rehab program -Continue PT and OT -15/12 rehabilitation nursing care. -Case management for safe discharge planning. -Decubitus prevention -Early decubitus to left heel/DTI dorsal left mi dfoot-zinc oxide to the foot, foam, offloading, podiatry managing -DVT prophylaxis-subcutaneous heparin -Strict fall and safety precautions -Work on bed mobility, transfer training, ADLs, pre-gait and gait exercises -Increase endurance and strength -Monitor pain with therapies -OOB to chair -Monitor p.o. intake and nut rition, albumin 1.3, prealbumin less than 5, dietary consultation, protein supplements to promote hea ling -Diabetes-A1c 14, tight glycemia control- endocr ine on board, insulin adjustments -Endocrinology, ID, podiatry, cardiology, IM con sulted -Pain management adjusting pain medications -Anemia, patient required multiple units of PRBC s on acute, FOBT positive -IV Protonix-consult GI-seri al H H-no evidence of gross bleeding-discussed with Dr. Trinidad -Constipation-abdominal vyepurfx-WFN-pzkqow-CW S enokot and MiraLAX, DSP -Right WKW-xgmutob-qdxwjvcz resolved, dr martinez changed qtvuc-tyceaou-rkeizgrx NESTOR-TECH -MRSA OF NARES on Bactroban protocol -LLE edema-venous Doppler wi th complex heterogeneous hypoechoic fluid collection in the left calf region measuring 8.4, 2.8, 2.5 cm suggestive of hematoma. On low-dose Lasix. Oralia wrap LLE -LE edema could be related to hypoalbuminemia le ading to third spacing-edema improving -Generalized edema-some shor tness of breath and abdominal distention-cardiology gave a dose of IV Lasix-monitor urine output, da jaz weights-SOB resolved -09/05-venous Doppler of LLE-negative for DVT-Oralia wrap dressing and elevation -Chest x-ray with minimal basilar pulmonary opac ities -Anemia-hemoglobin 8.3, 7.7, transfused 2 units of PRBC on 09/05 -09/08: s/p EGD and colonoscopy. EGD showed mild gastritis. Colonoscopy showed rectal polyp that was resected by snare. Anemia likely secondary to chronic kidney disease. Consult renal. -Pathology of polyp came back as tubular adenoma . recommend repeating colonoscopy in 5 years as per GI -Consider video capsule endoscopy as outpt if ev idence of dropping H/H -Chemistries good, creatinine 2.0, 2.4, magnesiu m normal -Renal ultrasound negative -09/12/2022 laboratory this m orning showed sodium 134, potassium 4.2, CO2 20, BUN 31, creatinine 2.4 continues to worsen, discussed with ID, AIN is probably the etiology of the unexplained deterioration of his renal function, antibiotics to be adjusted by infectious disease, will give Solu-Medrol 125 mg IV daily for 3 days. Significant lower extremity edema, will st art Lasix 20 mg p.o. twice daily-as per renal -Continue antibiotics per ID -on cefepime and vancomycin until 09/24 for treatment of prostatic abscess-Camarena as per -Noted LLE swelling (not new ) and low albumin. may benefit from albumin infusion + Lasix -CXR, BNP and Echo per cardiology gentle diuresis per cardio and renal -Advance therapies as tolerated-discusse d treatment plan with patient and -Patient progressing with therapies, requires mu ltiple rest breaks. Some back pain improved with pain medications. Mild dizzin ess and blood pressure 162/79 with no increase in symptoms during sessions. David cavazos making steady progress towards goals. PM R Please see team note. Plan and goals discussed with the patient. I agree with the teams finding ELOS- [09/19] DC-Home with -Home health DME-bedside commode, sliding board, wheelchair, Total time 33 minutes greater than 50% of the ti me spent examining patient, discussing with patient about work-up for edema, medical issues, anemia, GI recommendations, amputee rehab plan of c are, goals, therapies, progress, labs, medications. EMR and MAR is reviewed. All questi ons answered Rehab attestation: Face to face exam completed. Treatment plan disc ussed with patient. Meets continued stay criteria. Agree with interdiscipl inary treatment plan. Electronically Signed by Guero Candelaria on 0 09/13/22 at 2051 RPT #:[id number] END OF REPORT 2022-09-12 20:28:00-00:00 [facility] REPORT#:[id number] REPORT STATUS: Signed DATE:09/12/22 TIME: 2027 PATIENT: KARMA ROWLAND UNIT #: [id number] ROOM/BED: [place] [address] : 63 AGE: 56 SEX: M ATTEND: Fredy Vences MD ADM AUTHOR: Liam Pedersen DPM * ALL edits or amendments must be made on the [employer]/computer document * Subjective Chief complaint: left heel ulcer. left ankle pain Patient reports: no constipation, no cough, no d izziness, no fever, no nausea Objective General VS: Last Documented: Result Date Time Pulse Ox 97 09/13 1919 B/P 157/80 09/13 1919 B/P Mean 105.3 09/13 1919 Temp 36.6 09/13 1919 Pulse 85 09/13 1919 Resp 18 09/13 1919 O2 Delivery Room air 09/12 1522 O2 Flow Rate 2 09/08 1322 PATIENT WEIGHT: Weight (lb): 165 Weight (oz): 5.55 Weight (kg): 75.000 Medications: Active Meds + DC'd Last 24 Hrs Furosemide (LASIX) 20 MG BID 9A 5P PO Methylprednisolone Sodium Succinate (Solu-Medrol 125 MG Vial) 125 MG DAILY 1400 IV Daptomycin (CUBICIN 500MG) 500 MG Q24H IV Sodium Chloride (SODIUM CHLORIDE 0.9%) 50 ML Meropenem (MEROPENEM) 500 MG Q12H IV Sterile Water (WATER FOR INJECTION) 10 ML Hydromorphone HCl (DILAUDID) 0.5 MG DAILY PRN NV N IV Vancomycin HCl (VANCOMYCIN HCL) 500 MG ONCE ONE IV (DC) Sodium Chloride (SODIUM CHLORIDE 0.9% 100 ML) 1 00 ML Cefepime HCl (MAXIPIME) 1 GM Q8H IV (DC) Sodium Chloride (SODIUM CHLORIDE) 10 ML Gabapentin (NEURONTIN) 100 MG Q8HR PO Hydromorphone HCl (DILAUDID) 0.5 MG Q12H PRN PRN IV (DC) Oxycodone/Acetaminophen (PERCOCET 5/325MG TAB) 2 TAB Q4H PRN PRN PO Ferric Sodium Gluconate Complex (FERRLECIT) 125 MG DAILY IV Sodium Chloride (SODIUM CHLORIDE 0.9%) 100 ML Folic Acid (FOLIC ACID) 2 MG DAILY PO Multivitamins (TAB-A-MOHAN) 1 TAB DAILY PO Carvedilol (COREG) 12.5 MG C BK DIN PO Insulin Glargine (Semglee) 5 UNIT BEDTIME SUBQ Furosemide (LASIX 20MG INJ) 20 MG BLOOD-DOSE BET WEEN IV (CKD) Sodium Chloride (SODIUM CHLORIDE) 10 ML ASDIR IV Pantoprazole Sodium (PROTONIX) 40 MG Q12HR IV Polyethylene Glycol (MIRALAX) 17 GM DAILY PO Sennosides (Senna Lax 8.6 MG TABLET) 8.6 MG MADALYN Y PO Sodium Chloride (SODIUM CHLORIDE) 10 ML ASDIR NV N IV Amitriptyline HCl (ELAVIL) 25 MG BEDTIME PO Zinc Oxide (ZINC OXIDE 30 GM OINTMENT) 1 APPLIC DAILY TOPICAL Sterile Water (WATER FOR IRRIGATION) DRESSING CH GELACIO ASDIR PRN IRR Insulin Human Lispro (HUMALOG) 0 AC HS SUBQ Dextrose/Water (DEXTROSE 10% IN WATER) 125 ML DIR PRN IV (CKD) Dextrose/Water (DEXTROSE 10% IN WATER) 250 ML DIR PRN IV (CKD) Glucagon (GLUCAGON) 1 MG ASDIR PRN IM Lidocaine (LIDODERM) 1 PATCH DAILY TOPICAL Insulin Human Lispro (HUMALOG) 5 UNIT AC SUBQ Miscellaneous Information (VANCOMYCIN PHARMACY T O DOSE) 1 EACH ASDIR IV (DC) Heparin Sodium (HEPARIN 5000 UNITS/ML) 5,000 UNI T Q8HR SUBQ Acetaminophen (TYLENOL) 650 MG Q6H PRN PRN PO Bisacodyl (DULCOLAX) 10 MG DAILY PRN PRN RECTAL Docusate Sodium (COLACE) 100 MG Q12H PRN PRN PO Hydralazine HCl (APRESOLINE) 10 MG Q6H PRN PRN I V Ondansetron HCl (ZOFRAN) 4 MG Q6H PRN PRN IV I O: 24 hour I O ending at 0700: 09/12 0700 09/11 1900 Intake Total 100.00 960 Output Total 850 375 Balance -750.00 585 Intake, IV 100.00 Intake, Oral 960 Number 0 0 Incontinent Voids Number Voids 0 0 Output, Urine 850 375 Dietitian nutrition assessment The data set between the solid lines has been im ported from the dietitian's assessment. BMI Calculated: 26.7 Nutrition related diagnosis: Nutrition diagnosis details: Nutrition problem: Altered nutrition labs Nutrition etiology: DM Nutrition signs and symptoms: HYPER/HYPOGLYCEMIA , A1C >14 Nutrition prescription: CONTINUE DM DIET Dietitian name: You Palmer, DIET Assessment completed: 09/09/22 Physical Exam General appearance: alert, awake, oriented Wound/incision: Location: left foot Site condition: dp/pt 2/4 left. light touch de creased left foot. ulcer starting at posterior left heel. eccymosis noted . early likely stage 1. left ankle has edema. pain with aggressive ROM left a nkle. LE vascular pulse assess: 2+ L posterior tibialis, 2+ L dorsalis pedis Considered stroke alert: no Ulcer: Location: DTI dorsal left midfoot Results Findings/Data: Laboratory Tests: 09/12 09/12 09/12 09/12 1606 1115 1105 0604 Chemistry POC Glucose (70 - 110 MG/DL) 150 H 68 L 170 H B-Natriuretic Peptide (0 - 100 PG/ML) 297.0 H Hematology Eos Smear Total Cells NONE SEEN 09/12 09/11 0420 2130 Chemistry Sodium (134 - 147 mEq/L) 134 Potassium (3.4 - 5.0 mEq/L) 4.2 Chloride (100 - 108 mEq/L) 106 Carbon Dioxide (21 - 33 mEq/l) 20 L Anion Gap (0 - 20) 12 BUN (7 - 18 mg/dL) 31 H Creatinine (0.6 - 1.3 mg/dL) 2.4 H Glomerular Filtr Rate (90 - 95) 30.5 L Glucose (70 - 110 mg/dL) 167 H Calcium (8.0 - 10.5 mg/dL) 8.2 Phosphorus (2.5 - 4.9 MG/DL) 4.4 Magnesium (1.80 - 2.40 mg/dL) 1.86 Hematology WBC (4.5 - 11.0 x10 3/uL) 8.8 RBC (4.00 - 5.60 x10 6/uL) 2.73 L Hgb (12.5 - 16.9 g/dL) 7.7 L Hct (37.5 - 50.7 %) 23.7 L MCV (81.0 - 99.0 fL) 86.8 MCH (27.0 - 33.0 pg) 28.2 MCHC (33.0 - 37.0 g/dL) 32.5 L RDW (11.5 - 14.5 %) 13.8 Plt Count (150 - 400 x10 3/uL) 248 MPV (7.0 - 9.0 fL) 9.7 H Neut % (Auto) (56.0 - 77.0 %) 72.3 Lymph % (Auto) (14.0 - 32.0 %) 15.0 Boundary % (Auto) (4.8 - 9.0 %) 7.9 Eos % (Auto) (0.3 - 3.7 %) 3.8 H Baso % (Auto) (0.0 - 2.0 %) 0.3 Neut # (Auto) (2.0 - 7.6 x10 3/uL) 6.34 Lymph # (Auto) (1.0 - 3.8 x10 3/uL) 1.31 Boundary # (Auto) (0.1 - 0.8 x10 3/uL) 0.69 Eos # (Auto) (0.0 - 0.2 x10 3/uL) 0.33 H Baso # (Auto) (0.0 - 0.2 x10 3/uL) 0.03 Abs Immat Gran (auto) (0.00 - 0.03 x10 3/uL) 0. 06 H Add Manual Diff NO Immature Gran % (0.0 - 2.0 %) 0.7 Nucleated RBC % (0 - 0 %) 0.0 Nucleated RBCs # (Man) (0.0 - 0.1 x10 3/uL) 0.0 0 Toxicology Random Vancomycin (mcg/mL) 16.7 Diagnosis, Assessment Plan Free Text A P: DM with neuropathy early decub ulcer left heel OA/edema left ankle DTI dorsal left midfoot zinc oxide to foot and heel foam to heel on IV abx on PO gabapentin offloading boot oralia wraps to ankle, only when OOB with therapy. Consultants: cardiology, endocrinology, hospital ist, infectious disease, podiatry Electronically Signed by Liam Pedersen DPM on 0 09/12/22 at 2029 RPT #:[id number] END OF REPORT 2022-09-12 18:02:00-00:00 [facility] End[facility] Progress Note REPORT#:[id number] REPORT STATUS: Signed DATE:09/12/22 TIME: 1801 PATIENT: KARMA ROWLAND UNIT #: [id number] ROOM/BED: [place] [address] : 61 AGE: 56 SEX: M ATTEND: Fredy Vences MD ADM AUTHOR: Braxton Chapin MD * ALL edits or amendments must be made on the el [employer]/computer document * Subjective Patient reports: no complaints Objective General VS: Last Documented: Result Date Time Pulse Ox 94 09/12 1522 B/P 152/80 09/12 1522 B/P Mean 103.8 09/12 1522 O2 Delivery Room air 09/12 152 Temp 36.4 09/12 1522 Pulse 82 09/12 1522 Resp 18 09/12 1522 O2 Flow Rate 2 09/08 1322 PATIENT WEIGHT: Weight (lb): 165 Weight (oz): 5.55 Weight (kg): 75.000 Medications: Active Meds + DC'd Last 24 Hrs Furosemide (LASIX) 20 MG BID 9A 5P PO Methylprednisolone Sodium Succinate (Solu-Medrol 125 MG Vial) 125 MG DAILY 1400 IV Daptomycin (CUBICIN 500MG) 500 MG Q24H IV Sodium Chloride (SODIUM CHLORIDE 0.9%) 50 ML Meropenem (MEROPENEM) 500 MG Q12H IV Sterile Water (WATER FOR INJECTION) 10 ML Hydromorphone HCl (DILAUDID) 0.5 MG DAILY PRN NV N IV Vancomycin HCl (VANCOMYCIN HCL) 500 MG ONCE ONE IV (DC) Sodium Chloride (SODIUM CHLORIDE 0.9% 100 ML) 1 00 ML Cefepime HCl (MAXIPIME) 1 GM Q8H IV (DC) Sodium Chloride (SODIUM CHLORIDE) 10 ML Gabapentin (NEURONTIN) 100 MG Q8HR PO Hydromorphone HCl (DILAUDID) 0.5 MG Q12H PRN PRN IV (DC) Oxycodone/Acetaminophen (PERCOCET 5/325MG TAB) 2 TAB Q4H PRN PRN PO Ferric Sodium Gluconate Complex (FERRLECIT) 125 MG DAILY IV Sodium Chloride (SODIUM CHLORIDE 0.9%) 100 ML Folic Acid (FOLIC ACID) 2 MG DAILY PO Multivitamins (TAB-A-MOHAN) 1 TAB DAILY PO Carvedilol (COREG) 12.5 MG C BK DIN PO Insulin Glargine (Semglee) 5 UNIT BEDTIME SUBQ Furosemide (LASIX 20MG INJ) 20 MG BLOOD-DOSE BET WEEN IV (CKD) Sodium Chloride (SODIUM CHLORIDE) 10 ML ASDIR IV Pantoprazole Sodium (PROTONIX) 40 MG Q12HR IV Polyethylene Glycol (MIRALAX) 17 GM DAILY PO Sennosides (Senna Lax 8.6 MG TABLET) 8.6 MG MADALYN Y PO Sodium Chloride (SODIUM CHLORIDE) 10 ML ASDIR NV N IV Amitriptyline HCl (ELAVIL) 25 MG BEDTIME PO Zinc Oxide (ZINC OXIDE 30 GM OINTMENT) 1 APPLIC DAILY TOPICAL Sterile Water (WATER FOR IRRIGATION) DRESSING CH GELACIO ASDIR PRN IRR Insulin Human Lispro (HUMALOG) 0 AC HS SUBQ Dextrose/Water (DEXTROSE 10% IN WATER) 125 ML DIR PRN IV (CKD) Dextrose/Water (DEXTROSE 10% IN WATER) 250 ML DIR PRN IV (CKD) Glucagon (GLUCAGON) 1 MG ASDIR PRN IM Lidocaine (LIDODERM) 1 PATCH DAILY TOPICAL Insulin Human Lispro (HUMALOG) 5 UNIT AC SUBQ Miscellaneous Information (VANCOMYCIN PHARMACY T O DOSE) 1 EACH ASDIR IV (DC) Heparin Sodium (HEPARIN 5000 UNITS/ML) 5,000 UNI T Q8HR SUBQ Acetaminophen (TYLENOL) 650 MG Q6H PRN PRN PO Bisacodyl (DULCOLAX) 10 MG DAILY PRN PRN RECTAL Docusate Sodium (COLACE) 100 MG Q12H PRN PRN PO Hydralazine HCl (APRESOLINE) 10 MG Q6H PRN PRN I V Ondansetron HCl (ZOFRAN) 4 MG Q6H PRN PRN IV Physical Exam General appearance: alert, awake Diagnosis, Assessment Plan Hospital course to date: Laboratory Tests: 09/12 09/12 09/12 09/12 1606 1115 1105 0604 Chemistry POC Glucose (70 - 110 MG/DL) 150 H 68 L 170 H B-Natriuretic Peptide (0 - 100 PG/ML) 297.0 H Hematology Eos Smear Total Cells NONE SEEN 09/12 09/11 09/11 0420 2130 1933 Chemistry Sodium (134 - 147 mEq/L) 134 Potassium (3.4 - 5.0 mEq/L) 4.2 Chloride (100 - 108 mEq/L) 106 Carbon Dioxide (21 - 33 mEq/l) 20 L Anion Gap (0 - 20) 12 BUN (7 - 18 mg/dL) 31 H Creatinine (0.6 - 1.3 mg/dL) 2.4 H Glomerular Filtr Rate (90 - 95) 30.5 L Glucose (70 - 110 mg/dL) 167 H POC Glucose (70 - 110 MG/DL) 150 H Calcium (8.0 - 10.5 mg/dL) 8.2 Phosphorus (2.5 - 4.9 MG/DL) 4.4 Magnesium (1.80 - 2.40 mg/dL) 1.86 Hematology WBC (4.5 - 11.0 x10 3/uL) 8.8 RBC (4.00 - 5.60 x10 6/uL) 2.73 L Hgb (12.5 - 16.9 g/dL) 7.7 L Hct (37.5 - 50.7 %) 23.7 L MCV (81.0 - 99.0 fL) 86.8 MCH (27.0 - 33.0 pg) 28.2 MCHC (33.0 - 37.0 g/dL) 32.5 L RDW (11.5 - 14.5 %) 13.8 Plt Count (150 - 400 x10 3/uL) 248 MPV (7.0 - 9.0 fL) 9.7 H Neut % (Auto) (56.0 - 77.0 %) 72.3 Lymph % (Auto) (14.0 - 32.0 %) 15.0 Boundary % (Auto) (4.8 - 9.0 %) 7.9 Eos % (Auto) (0.3 - 3.7 %) 3.8 H Baso % (Auto) (0.0 - 2.0 %) 0.3 Neut # (Auto) (2.0 - 7.6 x10 3/uL) 6.34 Lymph # (Auto) (1.0 - 3.8 x10 3/uL) 1.31 Boundary # (Auto) (0.1 - 0.8 x10 3/uL) 0.69 Eos # (Auto) (0.0 - 0.2 x10 3/uL) 0.33 H Baso # (Auto) (0.0 - 0.2 x10 3/uL) 0.03 Abs Immat Gran (auto) (0.00 - 0.03 x10 3/uL) 0. 06 H Add Manual Diff NO Immature Gran % (0.0 - 2.0 %) 0.7 Nucleated RBC % (0 - 0 %) 0.0 Nucleated RBCs # (Man) (0.0 - 0.1 x10 3/uL) 0.0 0 Toxicology Random Vancomycin (mcg/mL) 16.7 Laboratory Tests: 09/11 09/11 09/11 09/11 09/11 1532 1445 1114 0541 0445 Chemistry Sodium (134 - 147 mEq/L) 134 Potassium (3.4 - 5.0 mEq/L) 4.3 Chloride (100 - 108 mEq/L) 105 Carbon Dioxide (21 - 33 mEq/l) 22 Anion Gap (0 - 20) 12 BUN (7 - 18 mg/dL) 26 H Creatinine (0.6 - 1.3 mg/dL) 2.0 H Glomerular Filtr Rate (90 - 95) 38.0 L Glucose (70 - 110 mg/dL) 109 POC Glucose (70 - 110 MG/DL) 93 109 127 H Calcium (8.0 - 10.5 mg/dL) 8.3 Phosphorus (2.5 - 4.9 MG/DL) 4.7 Magnesium (1.80 - 2.40 mg/dL) 1.90 Hematology WBC (4.5 - 11.0 x10 3/uL) 7.9 RBC (4.00 - 5.60 x10 6/uL) 2.94 L Hgb (12.5 - 16.9 g/dL) 8.3 L Hct (37.5 - 50.7 %) 25.8 L MCV (81.0 - 99.0 fL) 87.8 MCH (27.0 - 33.0 pg) 28.2 MCHC (33.0 - 37.0 g/dL) 32.2 L RDW (11.5 - 14.5 %) 13.7 Plt Count (150 - 400 x10 3/uL) 269 MPV (7.0 - 9.0 fL) 9.8 H Neut % (Auto) (56.0 - 77.0 %) 67.9 Lymph % (Auto) (14.0 - 32.0 %) 16.1 Boundary % (Auto) (4.8 - 9.0 %) 9.1 H Eos % (Auto) (0.3 - 3.7 %) 5.6 H Baso % (Auto) (0.0 - 2.0 %) 0.5 Neut # (Auto) (2.0 - 7.6 x10 3/uL) 5.35 Lymph # (Auto) (1.0 - 3.8 x10 3/uL) 1.27 Boundary # (Auto) (0.1 - 0.8 x10 3/uL) 0.72 Eos # (Auto) (0.0 - 0.2 x10 3/uL) 0.44 H Baso # (Auto) (0.0 - 0.2 x10 3/uL) 0.04 Abs Immat Gran (auto) (0.00 - 0.03 0.06 H x10 3/uL) Add Manual Diff NO Immature Gran % (0.0 - 2.0 %) 0.8 Nucleated RBC % (0 - 0 %) 0.0 Nucleated RBCs # (Man) (0.0 - 0.1 0.00 x10 3/uL) Toxicology Random Vancomycin (mcg/mL) 18.3 09/10 1851 Chemistry POC Glucose (70 - 110 MG/DL) 97 Laboratory Tests: 09/10 09/10 09/10 09/10 09/10 1715 1625 1430 1007 0545 Chemistry Sodium (134 - 147 mEq/L) 135 Potassium (3.4 - 5.0 mEq/L) 4.2 Chloride (100 - 108 mEq/L) 107 Carbon Dioxide (21 - 33 mEq/l) 21 Anion Gap (0 - 20) 11 BUN (7 - 18 mg/dL) 25 H Creatinine (0.6 - 1.3 mg/dL) 1.9 H Glomerular Filtr Rate (90 - 95) 40.4 L Glucose (70 - 110 mg/dL) 156 H POC Glucose (70 - 110 MG/DL) 75 58 L 213 H Calcium (8.0 - 10.5 mg/dL) 8.3 Phosphorus (2.5 - 4.9 MG/DL) 4.6 Magnesium (1.80 - 2.40 mg/dL) 1.89 Hematology WBC (4.5 - 11.0 x10 3/uL) 8.6 RBC (4.00 - 5.60 x10 6/uL) 3.08 L Hgb (12.5 - 16.9 g/dL) 8.6 L Hct (37.5 - 50.7 %) 26.7 L MCV (81.0 - 99.0 fL) 86.7 MCH (27.0 - 33.0 pg) 27.9 MCHC (33.0 - 37.0 g/dL) 32.2 L RDW (11.5 - 14.5 %) 13.8 Plt Count (150 - 400 x10 3/uL) 265 MPV (7.0 - 9.0 fL) 9.6 H Neut % (Auto) (56.0 - 77.0 %) 69.4 Lymph % (Auto) (14.0 - 32.0 %) 15.5 Boundary % (Auto) (4.8 - 9.0 %) 8.5 Eos % (Auto) (0.3 - 3.7 %) 5.5 H Baso % (Auto) (0.0 - 2.0 %) 0.4 Neut # (Auto) (2.0 - 7.6 x10 3/uL) 5.94 Lymph # (Auto) (1.0 - 3.8 x10 3/uL) 1.33 Boundary # (Auto) (0.1 - 0.8 x10 3/uL) 0.73 Eos # (Auto) (0.0 - 0.2 x10 3/uL) 0.47 H Baso # (Auto) (0.0 - 0.2 x10 3/uL) 0.03 Abs Immat Gran (auto) (0.00 - 0.03 0.06 H x10 3/uL) Add Manual Diff NO Immature Gran % (0.0 - 2.0 %) 0.7 Nucleated RBC % (0 - 0 %) 0.0 Nucleated RBCs # (Man) (0.0 - 0.1 0.00 x10 3/uL) Toxicology Random Vancomycin (mcg/mL) 15.7 09/10 09/09 0541 1911 Chemistry POC Glucose (70 - 110 MG/DL) 154 H 102 Recent Impressions: ULTRASOUND - US RETROPERITONEAL COM 09/10 1311 Report Impression - Status: SIGNED Entered: 09/10/2022 1503 IMPRESSION: No acute findings. Impression By: Hakeem Jacobo Laboratory Tests: 09/09 09/09 09/09 09/09 09/09 1606 1526 1403 1049 0524 Chemistry POC Glucose (70 - 110 MG/DL) 109 30 L 90 128 H Toxicology Random Vancomycin (mcg/mL) 15.4 09/09 09/08 09/08 0500 5 1828 Chemistry Sodium (134 - 147 mEq/L) 136 Potassium (3.4 - 5.0 mEq/L) 4.2 Chloride (100 - 108 mEq/L) 107 Carbon Dioxide (21 - 33 mEq/l) 22 Anion Gap (0 - 20) 11 BUN (7 - 18 mg/dL) 23 H Creatinine (0.6 - 1.3 mg/dL) 1.5 H Glomerular Filtr Rate (90 - 95) 53.6 L Glucose (70 - 110 mg/dL) 125 H POC Glucose (70 - 110 MG/DL) 106 Calcium (8.0 - 10.5 mg/dL) 8.2 Phosphorus (2.5 - 4.9 MG/DL) 4.0 Magnesium (1.80 - 2.40 mg/dL) 1.89 Iron (35 - 150 mcg/dL) 10 L TIBC (260 - 445 mcg/dL) 138 L % Saturation (14 - 34 %) 7.2 L Unsat Iron Binding (mcg/dL) 128 Ferritin (23.9 - 336.2 ng/mL) 700.5 H Lactate Dehydrogenase (87 - 241 IUnits/L) 193 Hematology WBC (4.5 - 11.0 x10 3/uL) 9.2 RBC (4.00 - 5.60 x10 6/uL) 3.01 L Hgb (12.5 - 16.9 g/dL) 8.5 L Hct (37.5 - 50.7 %) 25.9 L MCV (81.0 - 99.0 fL) 86.0 MCH (27.0 - 33.0 pg) 28.2 MCHC (33.0 - 37.0 g/dL) 32.8 L RDW (11.5 - 14.5 %) 13.8 Plt Count (150 - 400 x10 3/uL) 263 MPV (7.0 - 9.0 fL) 9.7 H Neut % (Auto) (56.0 - 77.0 %) 69.1 Lymph % (Auto) (14.0 - 32.0 %) 16.1 Boundary % (Auto) (4.8 - 9.0 %) 9.2 H Eos % (Auto) (0.3 - 3.7 %) 4.7 H Baso % (Auto) (0.0 - 2.0 %) 0.4 Neut # (Auto) (2.0 - 7.6 x10 3/uL) 6.38 Lymph # (Auto) (1.0 - 3.8 x10 3/uL) 1.49 Boundary # (Auto) (0.1 - 0.8 x10 3/uL) 0.85 H Eos # (Auto) (0.0 - 0.2 x10 3/uL) 0.43 H Baso # (Auto) (0.0 - 0.2 x10 3/uL) 0.04 Abs Immat Gran (auto) (0.00 - 0.03 x10 3/uL) 0. 05 H Add Manual Diff NO Immature Gran % (0.0 - 2.0 %) 0.5 Nucleated RBC % (0 - 0 %) 0.0 Nucleated RBCs # (Man) (0.0 - 0.1 x10 3/uL) 0.0 0 Retic Count (auto) (0.3 - 2.3 %) 1.3 Laboratory Tests: 09/08 09/08 09/08 09/08 09/08 1611 1318 1045 1033 0616 Chemistry POC Glucose (70 - 110 MG/DL) 120 H 101 99 101 Toxicology Random Vancomycin (mcg/mL) 15.8 09/08 09/07 09/07 0615 2238 2110 Chemistry Sodium (134 - 147 mEq/L) 135 Potassium (3.4 - 5.0 mEq/L) 4.6 Chloride (100 - 108 mEq/L) 107 Carbon Dioxide (21 - 33 mEq/l) 22 Anion Gap (0 - 20) 10 BUN (7 - 18 mg/dL) 22 H Creatinine (0.6 - 1.3 mg/dL) 1.4 H Glomerular Filtr Rate (90 - 95) 58.3 L Glucose (70 - 110 mg/dL) 100 POC Glucose (70 - 110 MG/DL) 135 H 127 H Calcium (8.0 - 10.5 mg/dL) 8.1 Magnesium (1.80 - 2.40 mg/dL) 1.58 L Total Creatine Kinase (46 - 171 Units/L) 22 L Albumin (3.4 - 5.0 g/dL) 1.30 L Prealbumin (16.0 - 40.0 mg/dL) < 5.0 L Hematology WBC (4.5 - 11.0 x10 3/uL) 9.1 RBC (4.00 - 5.60 x10 6/uL) 3.05 L Hgb (12.5 - 16.9 g/dL) 8.5 L Hct (37.5 - 50.7 %) 26.2 L MCV (81.0 - 99.0 fL) 85.9 MCH (27.0 - 33.0 pg) 27.9 MCHC (33.0 - 37.0 g/dL) 32.4 L RDW (11.5 - 14.5 %) 13.5 Plt Count (150 - 400 x10 3/uL) 231 MPV (7.0 - 9.0 fL) 9.6 H Neut % (Auto) (56.0 - 77.0 %) 73.3 Lymph % (Auto) (14.0 - 32.0 %) 13.7 L Boundary % (Auto) (4.8 - 9.0 %) 7.2 Eos % (Auto) (0.3 - 3.7 %) 4.8 H Baso % (Auto) (0.0 - 2.0 %) 0.3 Neut # (Auto) (2.0 - 7.6 x10 3/uL) 6.64 Lymph # (Auto) (1.0 - 3.8 x10 3/uL) 1.24 Boundary # (Auto) (0.1 - 0.8 x10 3/uL) 0.65 Eos # (Auto) (0.0 - 0.2 x10 3/uL) 0.43 H Baso # (Auto) (0.0 - 0.2 x10 3/uL) 0.03 Abs Immat Gran (auto) (0.00 - 0.03 x10 3/uL) 0. 06 H Add Manual Diff NO Immature Gran % (0.0 - 2.0 %) 0.7 Nucleated RBC % (0 - 0 %) 0.0 Nucleated RBCs # (Man) (0.0 - 0.1 x10 3/uL) 0.0 0 Laboratory Tests: 09/07 09/07 09/07 09/07 09/07 1554 1137 1127 0618 0510 Chemistry Creatinine (0.6 - 1.3 mg/dL) 1.4 H POC Glucose (70 - 110 MG/DL) 112 H 51 L 42 L 13 5 H Hematology Hgb (12.5 - 16.9 g/dL) 8.4 L Hct (37.5 - 50.7 %) 26.2 L Toxicology Random Vancomycin (mcg/mL) 14.7 09/066 2108 Chemistry POC Glucose (70 - 110 MG/DL) 192 H 211 H Laboratory Tests: 09/06 09/06 09/06 09/06 09/06 1553 1547 1051 0538 0536 Chemistry Creatinine (0.6 - 1.3 mg/dL) 1.4 H POC Glucose (70 - 110 MG/DL) 119 H 92 124 H Hematology Hgb (12.5 - 16.9 g/dL) 8.6 L Hct (37.5 - 50.7 %) 26.1 L Toxicology Vancomycin Trough (10.0 - 20.0 mcg/mL) 18.9 09/05 1910 Chemistry POC Glucose (70 - 110 MG/DL) 117 H Laboratory Tests: 09/05 09/05 09/04 09/04 09/04 1149 0615 2042 1630 1557 Chemistry Sodium (134 - 147 mEq/L) 134 Potassium (3.4 - 5.0 mEq/L) 5.0 Chloride (100 - 108 mEq/L) 109 H Carbon Dioxide (21 - 33 mEq/l) 21 Anion Gap (0 - 20) 9 BUN (7 - 18 mg/dL) 24 H Creatinine (0.6 - 1.3 mg/dL) 1.3 Glomerular Filtr Rate (90 - 95) 63.7 L Glucose (70 - 110 mg/dL) 75 POC Glucose (70 - 110 MG/DL) 74 103 128 H Calcium (8.0 - 10.5 mg/dL) 7.9 L Hematology Hgb (12.5 - 16.9 g/dL) 7.1 L Hct (37.5 - 50.7 %) 22.7 L Toxicology Vancomycin Trough (10.0 - 20.0 mcg/mL) 12.8 Microbiology: Date/Time Procedure - Status Source Growth 09/04 1739 Occult Blood - COMP STOOL Recent Impressions: RADIOLOGY - XR ABDOMEN 1V (KUB) 09/04 1648 Report Impression - Status: SIGNED Entered: 09/04/20221756 IMPRESSION: Benign appearance of the abdomen. Impression By: [email or web address] - Hakeem Soto ULTRASOUND - DUP VEIN UNI/LTD 09/05 1146 Report Impression - Status: SIGNED Entered: 09/05/2022 1333 IMPRESSION: 1. No evidence of deep vein thrombosis. 2. Complex heterogeneous hypoechoic fluid collec tion in the left calf region measuring 8.4 x 2.8 x 2.5 cm; there is no internal vascularity or peripheral hyperemia. May represe nt a hematoma. Impression By: [email or web address] - Mert Ga M.D. RADIOLOGY - XR CHEST 1 V 09/05 1432 Report Impression - Status: SIGNED Entered: 09/05/2022 1515 IMPRESSION: Minimal bibasilar pulmonary opacities Impression By: TipTDO - Hakeem Perez Laboratory Tests: 09/04 09/04 09/04 09/04 09/04 1630 1557 1100 1031 0816 Chemistry POC Glucose (70 - 110 MG/DL) 128 H 107 99 Hematology Hgb (12.5 - 16.9 g/dL) 7.7 L Hct (37.5 - 50.7 %) 23.7 L Toxicology Vancomycin Trough (10.0 - 20.0 mcg/mL) 12.8 09/04 09/04 09/03 09/03 0721 0540 1944 1836 Chemistry POC Glucose (70 - 110 MG/DL) 87 124 H Hematology Hgb (12.5 - 16.9 g/dL) 6.8 L Hct (37.5 - 50.7 %) 21.2 L Toxicology Vancomycin Peak (30 - 40 MCG/ML) 27.4 L Microbiology: Date/Time Procedure - Status Source Growth 09/04 1037 Occult Blood - COLB STOOL 1.Diabetes mellitus type 2 uncontrolled complica tions. 2. 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 4. Sepsis 5. Prostate abscess. 6. Anemia Blood sugar 167-68 mg/dL.H/H 8.11/17. Adjust insulin dose. PT and OT. Electronically Signed by Braxton Chapin MD on at 1803 RPT #:[id number] END OF REPORT 2022-09-12 09:52:00-00:[address] [facility] ([facility]) Hospitalist Progress Note REPORT#:[id number] REPORT STATUS: Signed DATE:09/12/22 TIME: 951 PATIENT: KARMA ROWLAND UNIT #: [id number] ROOM/BED: [place] [id number] : 61 AGE: 56 SEX: M ATTEND: Fredy Vences MD ADM AUTHOR: Wilbert Ramires MD * ALL edits or amendments must be made on the [employer] document * See Addendum Subjective Chief complaint: admitted to rehab. participating with therapy Review of Systems All systems rev neg: except as noted Objective General VS/I O: Vital Signs: Date Time Temp Pulse Resp B/P B/P Pulse O2 O2 F low FiO2 Mean Ox Delivery Rate 09/12 0647 97.9 83 17 136/76 96.2 95 Room air 09/11 2339 98.1 82 14 113/62 78.7 97 09/11 1841 97.7 82 18 151/80 103.5 95 Room air 09/11 1531 98.1 74 18 145/76 99.3 96 Room air 09/11 1144 83 162/79 106.3 24 hour I O ending at 0700: 09/12 0700 09/11 1900 Intake Total 100.00 960 Output Total 850 375 Balance -750.00 585 Intake, IV 100.00 Intake, Oral 960 Number 0 0 Incontinent Voids Number Voids 0 0 Output, Urine 850 375 PATIENT WEIGHT: Weight (lb): 165 Weight (oz): 5.55 Weight (kg): 75.000 Medications: Active Meds + DC'd Last 24 Hrs Hydromorphone HCl (DILAUDID) 0.5 MG DAILY PRN NV N IV Vancomycin HCl (VANCOMYCIN HCL) 500 MG ONCE ONE IV (DC) Sodium Chloride (SODIUM CHLORIDE 0.9% 100 ML) 1 00 ML Cefepime HCl (MAXIPIME) 1 GM Q8H IV Sodium Chloride (SODIUM CHLORIDE) 10 ML Gabapentin (NEURONTIN) 100 MG Q8HR PO Hydromorphone HCl (DILAUDID) 0.5 MG Q12H PRN PRN IV (DC) Oxycodone/Acetaminophen (PERCOCET 5/325MG TAB) 2 TAB Q4H PRN PRN PO Ferric Sodium Gluconate Complex (FERRLECIT) 125 MG DAILY IV Sodium Chloride (SODIUM CHLORIDE 0.9%) 100 ML Folic Acid (FOLIC ACID) 2 MG DAILY PO Multivitamins (TAB-A-MOHAN) 1 TAB DAILY PO Carvedilol (COREG) 12.5 MG C BK DIN PO Insulin Glargine (Semglee) 5 UNIT BEDTIME SUBQ Furosemide (LASIX 20MG INJ) 20 MG BLOOD-DOSE BET WEEN IV (CKD) Sodium Chloride (SODIUM CHLORIDE) 10 ML ASDIR IV Furosemide (LASIX) 20 MG DAILY PO (DC) Pantoprazole Sodium (PROTONIX) 40 MG Q12HR IV Polyethylene Glycol (MIRALAX) 17 GM DAILY PO Sennosides (Senna Lax 8.6 MG TABLET) 8.6 MG MADALYN Y PO Sodium Chloride (SODIUM CHLORIDE) 10 ML ASDIR NV N IV Amitriptyline HCl (ELAVIL) 25 MG BEDTIME PO Zinc Oxide (ZINC OXIDE 30 GM OINTMENT) 1 APPLIC DAILY TOPICAL Sterile Water (WATER FOR IRRIGATION) DRESSING CH GELACIO ASDIR PRN IRR Insulin Human Lispro (HUMALOG) 0 AC HS SUBQ Dextrose/Water (DEXTROSE 10% IN WATER) 125 ML DIR PRN IV (CKD) Dextrose/Water (DEXTROSE 10% IN WATER) 250 ML DIR PRN IV (CKD) Glucagon (GLUCAGON) 1 MG ASDIR PRN IM Lidocaine (LIDODERM) 1 PATCH DAILY TOPICAL Insulin Human Lispro (HUMALOG) 5 UNIT AC SUBQ Miscellaneous Information (VANCOMYCIN PHARMACY T O DOSE) 1 EACH ASDIR IV (CKD) Heparin Sodium (HEPARIN 5000 UNITS/ML) 5,000 UNI T Q8HR SUBQ Acetaminophen (TYLENOL) 650 MG Q6H PRN PRN PO Bisacodyl (DULCOLAX) 10 MG DAILY PRN PRN RECTAL Docusate Sodium (COLACE) 100 MG Q12H PRN PRN PO Hydralazine HCl (APRESOLINE) 10 MG Q6H PRN PRN I V Ondansetron HCl (ZOFRAN) 4 MG Q6H PRN PRN IV Physical Exam General appearance: alert, awake, oriented Head/Eyes: atraumatic, clear cornea Neck: full range of motion, non-tender Cardiovascular: normal capillary refill, normal heart sounds, regular rate rhythm Respiratory: aerating well, clear to auscultatio n Abdomen: non-tender, normal bowel sounds Genitourinary: no flank pain Extremities: moves all, normal capillary refill Musculoskeletal: normal inspection, painless ran ge of motion 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 X 3, 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 Considered stroke alert: no Skin: dry, intact Psychiatry: normal affect, normal judgment/insig ht Results Findings/Data: Laboratory Tests 09/12 09/12 09/11 09/11 09/11 0604 0420 1933 1532 1114 Chemistry Sodium (134 - 147 mEq/L) 134 Potassium (3.4 - 5.0 mEq/L) 4.2 Chloride (100 - 108 mEq/L) 106 Carbon Dioxide (21 - 33 mEq/l) 20 L Anion Gap (0 - 20) 12 BUN (7 - 18 mg/dL) 31 H Creatinine (0.6 - 1.3 mg/dL) 2.4 H Glomerular Filtr Rate (90 - 95) 30.5 L Glucose (70 - 110 mg/dL) 167 H POC Glucose (70 - 110 MG/DL) 170 H 150 H 93 109 Calcium (8.0 - 10.5 mg/dL) 8.2 Phosphorus (2.5 - 4.9 MG/DL) 4.4 Magnesium (1.80 - 2.40 mg/dL) 1.86 Laboratory Tests 09/12 0420 Hematology WBC (4.5 - 11.0 x10 3/uL) 8.8 RBC (4.00 - 5.60 x10 6/uL) 2.73 L Hgb (12.5 - 16.9 g/dL) 7.7 L Hct (37.5 - 50.7 %) 23.7 L MCV (81.0 - 99.0 fL) 86.8 MCH (27.0 - 33.0 pg) 28.2 MCHC (33.0 - 37.0 g/dL) 32.5 L RDW (11.5 - 14.5 %) 13.8 Plt Count (150 - 400 x10 3/uL) 248 MPV (7.0 - 9.0 fL) 9.7 H Neut % (Auto) (56.0 - 77.0 %) 72.3 Lymph % (Auto) (14.0 - 32.0 %) 15.0 Boundary % (Auto) (4.8 - 9.0 %) 7.9 Eos % (Auto) (0.3 - 3.7 %) 3.8 H Baso % (Auto) (0.0 - 2.0 %) 0.3 Neut # (Auto) (2.0 - 7.6 x10 3/uL) 6.34 Lymph # (Auto) (1.0 - 3.8 x10 3/uL) 1.31 Boundary # (Auto) (0.1 - 0.8 x10 3/uL) 0.69 Eos # (Auto) (0.0 - 0.2 x10 3/uL) 0.33 H Baso # (Auto) (0.0 - 0.2 x10 3/uL) 0.03 Abs Immat Gran (auto) (0.00 - 0.03 x10 3/uL) 0. 06 H Add Manual Diff NO Immature Gran % (0.0 - 2.0 %) 0.7 Nucleated RBC % (0 - 0 %) 0.0 Nucleated RBCs # (Man) (0.0 - 0.1 x10 3/uL) 0.0 0 Laboratory Tests 09/11 09/11 2130 1445 Toxicology Random Vancomycin (mcg/mL) 16.7 18.3 Diagnosis, Assessment Plan Consultants: cardiology, endocrinology, hospital ist, infectious disease, podiatry Free Text DxA P Notes Free text DxA P notes: Gangrene of right foot s/p Below- knee amputatio n Prostate abscess MRSA bacteremia Hx of Diabetes, Diabetic neuropathy HTN ERIKA PLANS: Continue with PT/OT per primary Fall precautions Nutritional support fall precautions bowel regimen Wound care as directed Hepain PPX Continue with supportive / care follow hgb closely and transfuse as needed labs noted. watch Hgb IV iron BP improving. cntinue to adjust BP meds dependin g on trends noted worsening renal function. renal following check urine eosinophils - vanco held. on Cefepim e trend renal function closely pain control Electronically Signed by Wilbert Ramires MD on at 0955 Addendum 1: 09/12/22 1058 by Wilbert Ramires MD noted LLE swelling (not new) and low albumin. may benefit from albumin infusion + Lasix CXR and Echo per cardiology gentle diuresis per cardio and renal Electronically Signed by Wilbert Ramires MD on at 1059 RPT #:[id number] END OF REPORT 2022-09-12 09:19:00-00:[address] [facility] ([facility]) Rehab Progress Note REPORT#:[id number] REPORT STATUS: Signed DATE:09/12/22 TIME: 918 PATIENT: KARMA ROWLAND UNIT #: [id number] ROOM/BED: [place] [id number] : 63 AGE: 56 SEX: M ATTEND: Fredy Vences MD ADM AUTHOR: Mj Vences MD * ALL edits or amendments must be made on the el [employer]/computer document * Subjective Chief complaint: Rehab follow-up Doing well Patient worried about edema Eating 75-100% at bedside + BM Denies MCBRIDE/N/V/D/CP 14 systems reviewed and neg. except that above. History of present illness: 56 yo HAM with long h/o DM, and HTN who was admitted for fever, flulike symptoms and altered mental status on 08/18. He was doing well until about 3 days prior to admission when he noted blister to have formed o n the dorsum of his foot. His foot started progressively getting more swollen and the blisters started enlarging and extending to his lateral f oot and ankle. He started feeling weak and nauseated. He was noted to have altered mentation and was brought to our ER. He was noted to be in DKA with Blood sugars grea ter than 600. He was seen by podiatry and surgery for BLE wounds and infectio n. He was treated in ICU for sepsis and DKA. He underwent incisional and excisional debridement of right foot and right ankle by podiatry. Patient also found to have prostate abscess underwent transrectal ultrasound aspiration of a bscess and transurethral resection of prostate and unroofing of abscess b y urology Dr. Bass. Endocrinology treated the DKA and blood sugars m uch improved. Patient's right foot was not salvageable and patient und erwent right BKA by Dr. LEROY on 08/28. Patient blood cultures showe d MRSA. Patient continued on antibiotics as per ID. MRI of the pelvis and foot completed. Patient r equired multiple PRBCs for anemia. Patient was found to have a possible small hematoma of the left calf on ultrasound. He complains of pain and swelling of the left ankle. Patient hemodynamically stable and plans are to be transferred to stepdown unit. He is on heparin subcu for VTE. Af ter surgery he is now being mobilized by PT and OT. He is wearing a [employer]or-[employer] orthotic for right knee /BKA protection. Prior to admission the patient was independent living in a single-story house with his spouse with a few steps up to front and back doo r. 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 is at bedside. Patient denies nausea, vomiting, fever, chills, chest pain, shortness of breath with diz ziness. He is requiring IV Dilaudid for pain control. Mental status back to baseline. Pt is progressing slowly with therapy d/t weakness and pain, self care deficit, decreased endurance and balance, and decreased functional mobility. Pt requiring acute inpt rehab for multidiscipli nary team of nursing, therapy, and physicians. Pt is willing and able to partici- kathleen in 3 hr/day inpt rehab to d/c home safely. Pt' s prior level of function was independent. Objective General VS: Vital Signs: Date Time Temp Pulse Resp B/P B/P Pulse O2 O2 F low FiO2 Mean Ox Delivery Rate 09/12 0647 97.9 83 17 136/76 96.2 95 Room air 09/11 2339 98.1 82 14 113/62 78.7 97 09/11 1841 97.7 82 18 151/80 103.5 95 Room air 09/11 1531 98.1 74 18 145/76 99.3 96 Room air 09/11 1144 83 162/79 106.3 PATIENT WEIGHT: Weight (lb): 165 Weight (oz): 5.55 Weight (kg): 75.000 Medications: Active Meds + DC'd Last 24 Hrs Hydromorphone HCl (DILAUDID) 0.5 MG DAILY PRN NV N IV Vancomycin HCl (VANCOMYCIN HCL) 500 MG ONCE ONE IV (DC) Sodium Chloride (SODIUM CHLORIDE 0.9% 100 ML) 100 ML Cefepime HCl (MAXIPIME) 1 GM Q8H IV Sodium Chloride (SODIUM CHLORIDE) 10 ML Gabapentin (NEURONTIN) 100 MG Q8HR PO Hydromorphone HCl (DILAUDID) 0.5 MG Q12H PRN NV N IV (DC) Oxycodone/Acetaminophen (PERCOCET 5/325MG TAB) 2 TAB Q4H PRN PRN PO Ferric Sodium Gluconate Complex (FERRLECIT) 125 MG DAILY IV Sodium Chloride (SODIUM CHLORIDE 0.9%) 100 ML Folic Acid (FOLIC ACID) 2 MG DAILY PO Multivitamins (TAB-A-MOHAN) 1 TAB DAILY PO Carvedilol (COREG) 12.5 MG C BK DIN PO Insulin Glargine (Semglee) 5 UNIT BEDTIME SUBQ Furosemide (LASIX 20MG INJ) 20 MG BLOOD-DOSE BET WEEN IV (CKD) Sodium Chloride (SODIUM CHLORIDE) 10 ML ASDIR IV Furosemide (LASIX) 20 MG DAILY PO (DC) Pantoprazole Sodium (PROTONIX) 40 MG Q12HR IV Polyethylene Glycol (MIRALAX) 17 GM DAILY PO Sennosides (Senna Lax 8.6 MG TABLET) 8.6 MG MADALYN Y PO Sodium Chloride (SODIUM CHLORIDE) 10 ML ASDIR NV N IV Amitriptyline HCl (ELAVIL) 25 MG BEDTIME PO Zinc Oxide (ZINC OXIDE 30 GM OINTMENT) 1 APPLIC DAILY TOPICAL Sterile Water (WATER FOR IRRIGATION) DRESSING CH GELACIO ASDIR PRN IRR Insulin Human Lispro (HUMALOG) 0 AC HS SUBQ Dextrose/Water (DEXTROSE 10% IN WATER) 125 ML DIR PRN IV (CKD) Dextrose/Water (DEXTROSE 10% IN WATER) 250 ML DIR PRN IV (CKD) Glucagon (GLUCAGON) 1 MG ASDIR PRN IM Lidocaine (LIDODERM) 1 PATCH DAILY TOPICAL Insulin Human Lispro (HUMALOG) 5 UNIT AC SUBQ Miscellaneous Information (VANCOMYCIN PHARMACY T O DOSE) 1 EACH ASDIR IV (CKD) Heparin Sodium (HEPARIN 5000 UNITS/ML) 5,000 UNI T Q8HR SUBQ Acetaminophen (TYLENOL) 650 MG Q6H PRN PRN PO Bisacodyl (DULCOLAX) 10 MG DAILY PRN PRN RECTAL Docusate Sodium (COLACE) 100 MG Q12H PRN PRN PO Hydralazine HCl (APRESOLINE) 10 MG Q6H PRN PRN I V Ondansetron HCl (ZOFRAN) 4 MG Q6H PRN PRN IV Physical Exam General appearance: alert, awake, no acute distr ess Psych: alert, normal affect, oriented x 3 HEENT: anicteric, sclera clear Neck: supple, no JVD Cardiovascular: S1/S2, no murmur Respiratory: aerating well, clear bilaterally Abdomen: bowel sounds present, non-distended, so ft, non-tender Skin: no rash, R BKA HEALING. 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 3, CNII-XII intact Results Findings/Data: Laboratory Tests: 09/12 09/12 09/11 09/11 09/11 0604 0420 2130 1933 1532 Chemistry Sodium (134 - 147 mEq/L) 134 Potassium (3.4 - 5.0 mEq/L) 4.2 Chloride (100 - 108 mEq/L) 106 Carbon Dioxide (21 - 33 mEq/l) 20 L Anion Gap (0 - 20) 12 BUN (7 - 18 mg/dL) 31 H Creatinine (0.6 - 1.3 mg/dL) 2.4 H Glomerular Filtr Rate (90 - 95) 30.5 L Glucose (70 - 110 mg/dL) 167 H POC Glucose (70 - 110 MG/DL) 170 H 150 H 93 Calcium (8.0 - 10.5 mg/dL) 8.2 Phosphorus (2.5 - 4.9 MG/DL) 4.4 Magnesium (1.80 - 2.40 mg/dL) 1.86 Hematology WBC (4.5 - 11.0 x10 3/uL) 8.8 RBC (4.00 - 5.60 x10 6/uL) 2.73 L Hgb (12.5 - 16.9 g/dL) 7.7 L Hct (37.5 - 50.7 %) 23.7 L MCV (81.0 - 99.0 fL) 86.8 MCH (27.0 - 33.0 pg) 28.2 MCHC (33.0 - 37.0 g/dL) 32.5 L RDW (11.5 - 14.5 %) 13.8 Plt Count (150 - 400 x10 3/uL) 248 MPV (7.0 - 9.0 fL) 9.7 H Neut % (Auto) (56.0 - 77.0 %) 72.3 Lymph % (Auto) (14.0 - 32.0 %) 15.0 Boundary % (Auto) (4.8 - 9.0 %) 7.9 Eos % (Auto) (0.3 - 3.7 %) 3.8 H Baso % (Auto) (0.0 - 2.0 %) 0.3 Neut # (Auto) (2.0 - 7.6 x10 3/uL) 6.34 Lymph # (Auto) (1.0 - 3.8 x10 3/uL) 1.31 Boundary # (Auto) (0.1 - 0.8 x10 3/uL) 0.69 Eos # (Auto) (0.0 - 0.2 x10 3/uL) 0.33 H Baso # (Auto) (0.0 - 0.2 x10 3/uL) 0.03 Abs Immat Gran (auto) (0.00 - 0.03 0.06 H x10 3/uL) Add Manual Diff NO Immature Gran % (0.0 - 2.0 %) 0.7 Nucleated RBC % (0 - 0 %) 0.0 Nucleated RBCs # (Man) (0.0 - 0.1 0.00 x10 3/uL) Toxicology Random Vancomycin (mcg/mL) 16.7 09/11 09/11 1445 1114 Chemistry POC Glucose (70 - 110 MG/DL) 109 Toxicology Random Vancomycin (mcg/mL) 18.3 Radiology data: Recent Impressions: RADIOLOGY - XR CHEST 1 V 09/05 1432 Report Impression - Status: SIGNED Entered: 09/05/2022 1515 IMPRESSION: Minimal bibasilar pulmonary opacities Impression By: Hakeem Jacobo ULTRASOUND - US RETROPERITONEAL COM 09/10 1311 Report Impression - Status: SIGNED Entered: 09/10/2022 1503 IMPRESSION: No acute findings. Impression By: Hakeem Jacobo Diagnosis, Assessment Plan Problem List/A P: 1. Gangrene of right foot 2. 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 MRSA bacteremia 4. Cellulitis of foot, right 5. DKA (diabetic ketoacidosis) 6. Hyperglycemia 7. ERIKA (acute kidney injury) 8. Postoperative pain 9. Acute anemia 10. Prostate abscess 11. 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 Leroy Significant impairment in self-care, ADLs and fu nctional mobility Impaired mobility and gait Acute postoperative pain right BKA Diabetic polyneuropathy DKA, DM 2, poorly controlled, A1c greater than 1 4 PAD MRSA bacteremia/sepsis-treated on acute ERIKA Severe hyponatremia-resolved HTN Acute on chronic anemia requiring multiple trans fusions, possible GI bleed Left calf hematoma Edema and clinical arthritis left ankle Early decubitus to left heel/DTI dorsal left mid foot Prostatic abscess 08/26: S/p transrectal ultrasound aspiration of ab scess and transurethral resection of prostate and unroofing of abscess Echo: EF 55-59%, grade 1 diastolic dysfunction 09/02: JIMENA negative for vegetation MRSA OF NARES 09/08:s/p EGD and colonoscopy. EGD showed mild ga stritis. Colonoscopy showed rectal polyp that was resect ed by snare (tubular adenoma)-repeat colonoscopy in 5 years Plan: -PLOF: Independent with transfers and gait -Amputee rehab program -Continue PT and OT -15/12 rehabilitation nursing care. -Case management for safe discharge planning. -Decubitus prevention -Early decubitus to left heel/DTI dorsal left mi dfoot-zinc oxide to the foot, foam, offloading, podiatry managing -DVT prophylaxis-subcutaneous heparin -Strict fall and safety precautions -Work on bed mobility, transfer training, ADLs, pre-gait and gait exercises -Increase endurance and strength -Monitor pain with therapies -OOB to chair -Monitor p.o. intake and nut rition, albumin 1.3, prealbumin less than 5, dietary consultation, protein supplements to promote hea ling -Diabetes-A1c 14, tight glycemia control- endocr ine on board, insulin adjustments -Endocrinology, ID, podiatry, cardiology, IM con sulted -Pain management adjusting pain medications -Anemia, patient required multiple units of PRBC s on acute, FOBT positive -IV Protonix-consult GI-seri al H H-no evidence of gross bleeding-discussed with Dr. Trinidad -Constipation-abdominal vyjblmix-LCN-aflzxc-CW S enokot and MiraLAX, DSP -Right AYA-lnhjczw-cifcmmvv resolved, dr martinez changed nbndu-kqrxgjy-qoqessoq NESTOR-TECH -MRSA OF NARES on Bactroban protocol -LLE edema-venous Doppler wi th complex heterogeneous hypoechoic fluid collection in the left calf region measuring 8.4, 2.8, 2.5 cm suggestive of hematoma. On low-dose Lasix. Oralia wrap LLE -LE edema could be related to hypoalbuminemia le ading to third spacing-edema improving -Generalized edema-some shor tness of breath and abdominal distention-cardiology gave a dose of IV Lasix-monitor urine output, da jaz weights-SOB resolved -09/05-venous Doppler of LLE-negative for DVT-Oralia wrap dressing and elevation -Chest x-ray with minimal basilar pulmonary opac ities -Anemia-hemoglobin 8.3, 7.7, transfused 2 units of PRBC on 09/05 -09/08: s/p EGD and colonoscopy. EGD showed mild gastritis. Colonoscopy showed rectal polyp that was resected by snare. Anemia likely secondary to chronic kidney disease. Consult renal. -Pathology of polyp came back as tubular adenoma . recommend repeating colonoscopy in 5 years as per GI -Consider video capsule endoscopy as outpt if ev idence of dropping H/H -Chemistries good, creatinine 2.0, 2.4, magnesiu m normal -Renal ultrasound negative -09/12/2022 laboratory this m orning showed sodium 134, potassium 4.2, CO2 20, BUN 31, creatinine 2.4 continues to worsen, discussed with ID, AIN is probably the etiology of the unexplained deterioration of his renal function, antibiotics to be adjusted by infectious disease, will give Solu-Medrol 125 mg IV daily for 3 days. Significant lower extremity edema, will st art Lasix 20 mg p.o. twice daily-as per renal -Continue antibiotics per ID -on cefepime and vancomycin until 09/24 for treatment of prostatic abscess-Camarena as per -Noted LLE swelling (not new ) and low albumin. may benefit from albumin infusion + Lasix -CXR, BNP and Echo per cardiology gentle diuresis per cardio and renal -Advance therapies as tolerated-discusse d treatment plan with patient and -Patient progressing with therapies, requires mu ltiple rest breaks. Some back pain improved with pain medications. Mild dizzin ess and blood pressure 162/79 with no increase in symptoms during sessions. David cavazos making steady progress towards goals. Progress: PT PARTCIPATED IN 90' OF SKILLED PT TO DAY. PT EDUCATED ON RLE NWB STATUS, POSTURE, AND SAFETY PRECAUTIONS TO INCREASE AWARENESS THROUGHOUT SESSION. PT PROPELLED W/C WITH B/L UE, SPV, 160 FEET, 40 FEET, 220, 100 FEET, and 60 FEET. PT PERFORMED SEATED W/C PUSHUPS (5 REPS X2), HIP ADD WITH BALL (10 REPS X2, 3"), AND HIP ABD (10 REPS X2, 3" WITH GREEN THERABAND). PM R Please see team note. Plan and goals discussed with the patient. I agree with the teams finding ELOS- [09/19] DC-Home with -Home health DME-bedside commode, sliding board, wheelchair, Total time 33 minutes greater than 50% of the ti me spent examining patient, discussing with patient and about work-up for edema, medical issues, anemia , GI recommendations, amputee rehab plan of care , goals, therapies, progress, labs, medications. EMR and MAR is reviewed. All questions answered Consultants: cardiology, endocrinology, hospital ist, infectious disease, podiatry Rehab attestation: Face to face exam completed. Treatment plan disc ussed with patient. Meets continued stay criteria. Agree with interdiscipl inary treatment plan. at 1324 RPT #:[id number] END OF REPORT 2022-09-12 09:16:00-00:00 [facility] ([facility]) Cardiology Progress Note REPORT#:[id number] REPORT STATUS: Signed DATE:09/12/22 TIME: 915 PATIENT: KARMA ROWLAND UNIT #: [id number] ROOM/BED: [place] [address] : 63 AGE: 56 SEX: M ATTEND: Fredy Vences MD ADM AUTHOR: Rohit Benitez CLAY MILLER * ALL edits or amendments must be made on the [employer]/computer document * Rohit Benitez 09/12/22 0916: Subjective Chief complaint: weakness Free Text Subj Notes Free Text Subj Notes: Patient seen and evaluated. Overall feeling well , denies chest pain or shortness of breath. Objective General VS/I O: 24 hour I O ending at 0700: 09/12 0700 09/11 1900 Intake Total 100.00 960 Output Total 850 375 Balance -750.00 585 Intake, IV 100.00 Intake, Oral 960 Number 0 0 Incontinent Voids Number Voids 0 0 Output, Urine 850 375 Vital Signs: Date Time Temp Pulse Resp B/P B/P Pulse O2 O2 F low FiO2 Mean Ox Delivery Rate 09/12 0647 97.9 83 17 136/76 96.2 95 Room air 09/11 2339 98.1 82 14 113/62 78.7 97 09/11 1841 97.7 82 18 151/80 103.5 95 Room air 09/11 1531 98.1 74 18 145/76 99.3 96 Room air 09/11 1144 83 162/79 106.3 PATIENT WEIGHT: Weight (lb): 165 Weight (oz): 5.55 Weight (kg): 75.000 Medications: Active Meds + DC'd Last 24 Hrs Hydromorphone HCl (DILAUDID) 0.5 MG DAILY PRN NV N IV Vancomycin HCl (VANCOMYCIN HCL) 500 MG ONCE ONE IV (DC) Sodium Chloride (SODIUM CHLORIDE 0.9% 100 ML) 1 00 ML Cefepime HCl (MAXIPIME) 1 GM Q8H IV Sodium Chloride (SODIUM CHLORIDE) 10 ML Gabapentin (NEURONTIN) 100 MG Q8HR PO Hydromorphone HCl (DILAUDID) 0.5 MG Q12H PRN PRN IV (DC) Oxycodone/Acetaminophen (PERCOCET 5/325MG TAB) 2 TAB Q4H PRN PRN PO Ferric Sodium Gluconate Complex (FERRLECIT) 125 MG DAILY IV Sodium Chloride (SODIUM CHLORIDE 0.9%) 100 ML Folic Acid (FOLIC ACID) 2 MG DAILY PO Multivitamins (TAB-A-MOHAN) 1 TAB DAILY PO Carvedilol (COREG) 12.5 MG C BK DIN PO Insulin Glargine (Semglee) 5 UNIT BEDTIME SUBQ Furosemide (LASIX 20MG INJ) 20 MG BLOOD-DOSE BET WEEN IV (CKD) Sodium Chloride (SODIUM CHLORIDE) 10 ML ASDIR IV Furosemide (LASIX) 20 MG DAILY PO (DC) Pantoprazole Sodium (PROTONIX) 40 MG Q12HR IV Polyethylene Glycol (MIRALAX) 17 GM DAILY PO Sennosides (Senna Lax 8.6 MG TABLET) 8.6 MG MADALYN Y PO Sodium Chloride (SODIUM CHLORIDE) 10 ML ASDIR NV N IV Amitriptyline HCl (ELAVIL) 25 MG BEDTIME PO Zinc Oxide (ZINC OXIDE 30 GM OINTMENT) 1 APPLIC DAILY TOPICAL Sterile Water (WATER FOR IRRIGATION) DRESSING CH GELACIO ASDIR PRN IRR Insulin Human Lispro (HUMALOG) 0 AC HS SUBQ Dextrose/Water (DEXTROSE 10% IN WATER) 125 ML DIR PRN IV (CKD) Dextrose/Water (DEXTROSE 10% IN WATER) 250 ML DIR PRN IV (CKD) Glucagon (GLUCAGON) 1 MG ASDIR PRN IM Lidocaine (LIDODERM) 1 PATCH DAILY TOPICAL Insulin Human Lispro (HUMALOG) 5 UNIT AC SUBQ Miscellaneous Information (VANCOMYCIN PHARMACY T O DOSE) 1 EACH ASDIR IV (CKD) Heparin Sodium (HEPARIN 5000 UNITS/ML) 5,000 UNI T Q8HR SUBQ Acetaminophen (TYLENOL) 650 MG Q6H PRN PRN PO Bisacodyl (DULCOLAX) 10 MG DAILY PRN PRN RECTAL Docusate Sodium (COLACE) 100 MG Q12H PRN PRN PO Hydralazine HCl (APRESOLINE) 10 MG Q6H PRN PRN I V Ondansetron HCl (ZOFRAN) 4 MG Q6H PRN PRN IV Physical Exam General appearance: alert, awake, oriented Neck: no bruit/NL carotids, no JVD Cardiovascular: CV assessment: regular rate and rhythm, no ecto py, no gallop Respiratory: clear to auscultation, no distress Abdomen: soft, non-tender Lower extremity: LE assessment: edema, normal temperature 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 X 3 Considered stroke alert: no Wound/incision: Location: right bka Psychiatry: normal affect, normal judgment/insig ht, normal mood Results Findings/Data: Laboratory Tests 09/12 09/12 09/11 09/11 09/11 0604 0420 1933 1532 1114 Chemistry Sodium (134 - 147 mEq/L) 134 Potassium (3.4 - 5.0 mEq/L) 4.2 Chloride (100 - 108 mEq/L) 106 Carbon Dioxide (21 - 33 mEq/l) 20 L Anion Gap (0 - 20) 12 BUN (7 - 18 mg/dL) 31 H Creatinine (0.6 - 1.3 mg/dL) 2.4 H Glomerular Filtr Rate (90 - 95) 30.5 L Glucose (70 - 110 mg/dL) 167 H POC Glucose (70 - 110 MG/DL) 170 H 150 H 93 109 Calcium (8.0 - 10.5 mg/dL) 8.2 Phosphorus (2.5 - 4.9 MG/DL) 4.4 Magnesium (1.80 - 2.40 mg/dL) 1.86 Laboratory Tests 09/12 0420 Hematology WBC (4.5 - 11.0 x10 3/uL) 8.8 RBC (4.00 - 5.60 x10 6/uL) 2.73 L Hgb (12.5 - 16.9 g/dL) 7.7 L Hct (37.5 - 50.7 %) 23.7 L MCV (81.0 - 99.0 fL) 86.8 MCH (27.0 - 33.0 pg) 28.2 MCHC (33.0 - 37.0 g/dL) 32.5 L RDW (11.5 - 14.5 %) 13.8 Plt Count (150 - 400 x10 3/uL) 248 MPV (7.0 - 9.0 fL) 9.7 H Neut % (Auto) (56.0 - 77.0 %) 72.3 Lymph % (Auto) (14.0 - 32.0 %) 15.0 Boundary % (Auto) (4.8 - 9.0 %) 7.9 Eos % (Auto) (0.3 - 3.7 %) 3.8 H Baso % (Auto) (0.0 - 2.0 %) 0.3 Neut # (Auto) (2.0 - 7.6 x10 3/uL) 6.34 Lymph # (Auto) (1.0 - 3.8 x10 3/uL) 1.31 Boundary # (Auto) (0.1 - 0.8 x10 3/uL) 0.69 Eos # (Auto) (0.0 - 0.2 x10 3/uL) 0.33 H Baso # (Auto) (0.0 - 0.2 x10 3/uL) 0.03 Abs Immat Gran (auto) (0.00 - 0.03 x10 3/uL) 0. 06 H Add Manual Diff NO Immature Gran % (0.0 - 2.0 %) 0.7 Nucleated RBC % (0 - 0 %) 0.0 Nucleated RBCs # (Man) (0.0 - 0.1 x10 3/uL) 0.0 0 Laboratory Tests 09/11 09/11 2130 1445 Toxicology Random Vancomycin (mcg/mL) 16.7 18.3 Laboratory Tests 09/12 0420 Chemistry Magnesium (1.80 - 2.40 mg/dL) 1.86 Diagnosis, Assessment Plan Consultants: cardiology, endocrinology, hospital ist, infectious disease, podiatry Free Text DxA P Notes Free Text DxA P Notes: Impression: 1. Debility 2. Infected right foot status post BKA 3. Bacteremia 4. Diabetes 5. Hypertension 6. Anemia 07/2022: Echocardiogram with normal LVEF, grade 1 diastolic dysfunction, mildly dilated LA, and no significant valvular abnormal ities Recommendation: Patient initially presented with DKA and sepsis. Diagnosed with right foot infection, underwent I D, now status post BKA. P atient had persistent bacteremia with MRSA, underwent JIMENA with negativ e findings of endocarditis. Patient now transferred to [facility] for physical therapy. Known cardiac history of hypertension and hyperlipide renetta. Vital signs stable. Echocardiogram with normal LVEF, grade 1 diastolic dysfunction, mildly dila carlos LA, and no significant valvular abnormalities. Continue to monitor bloo d pressure trend. Continue wound care and IV antibiotic therapy. Continue P T/OT. Supportive care. 09/04: Patient complaining of shortness of breath, abdominal distention and lower extremity edema. Renal function and electrolytes stable. Will give one-time dose of IV Lasix 40 mg. Blood pressure stable. P ending abdominal x-ray. Monitor intake and output. Check BMP in the morn ing. Supportive care. Plan of care discussed with patient, RN and Dr. Parham. 09/05: Patient responded well to IV Lasix , good urine output and improvement in shortness of breath. Chest x-ray ordered . Currently on Lasix 20 mg p.o. daily. Continue monitor renal function and electrolyte s. Pending lower extremity Doppler for lower extremity edema. Continue PT/O T. Supportive care. Plan of care discussed with patient, RN and Dr. Parham. 09/08: Blood pressure has been elevated, started on Coreg 3.125 mg twice daily. Continue monitor blood pressure trend and adjust medication as needed. Still having left lower extremity edema, venous Dopple r negative for DVT. continue gentle diuresis with Lasix 20 mg p.o. daily. Rec ommend Oralia wrap. Patient remains anemic, plan for EGD/colonoscopy today. Supportive care. Plan of care discussed with patient, family, RN and Dr. Parham . 09/09: Patient doing well status post EGD /colonoscopy, negative findings for GI bleed. Blood pressure improving, increased on Co reg to 12.5 mg twice daily. Elevated creatinine noted, nephrology following. No new cardiac complaint. Continue wound care. Continue PT/OT. Supportive care. Plan of care discussed with patient, RN and Dr. Parham. 09/10: Blood pressure remained stable on current regimen of Coreg. Patient continue to have left lower extremity edema. Cur rently on Lasix 20 mg daily. Creatinine 1.9 today, continue to monito r. Patient's albumin level was 1.3, it is possible that patient's lower extremity edema could be related to hypoalbuminemia leading to third spacing. Contin ue PT/OT. Supportive care. Plan of care discussed with patient, RN and Dr. Parham. 09/11: Patient doing well from cardiac standpoint . Blood pressure well controlled. Improvement in lower extremity edema with elevating leg while in bed. Creatinine 2.0 today. Denies shortness of b reath. Will hold diuretic for now and monitor renal function. Supportive care. Plan of care discussed with patient, RN and Dr. Parham. 09/12: Creatinine remains elevated at 2.4 today, antibiotic regimen also being adjusted. Patient still with lower extremity orse ma and rales on physical examination. Will check chest x-ray and limited echocardiogram for further evaluation. Check BNP. Continue hold diuretic fo r now. Supportive care. Plan of care discussed with patient, RN and Dr. Parham . Gianni Parham 09/13/22 1458: Diagnosis, Assessment Plan Additional comments: Patient was seen and examined at bedside , agree with above assessment and plan as documented by nurse practitioner. Discussed w ith patient, and primary team, will follow. Electronically Signed by Rohit Benitez CLAY MILLER on 0 09/12/22 at 1605 at 1502 RPT #:[id number] END OF REPORT 2022-09-12 09:11:00-00:00 [facility] Gastroenterology Progress Note REPORT#:[id number] REPORT STATUS: Signed DATE:09/12/22 TIME: 910 PATIENT: KARMA ROWLAND UNIT #: [id number] ROOM/BED: [place] [address] : 63 AGE: 56 SEX: M ATTEND: Fredy Vences MD ADM AUTHOR: Kassie Avitia MD * ALL edits or amendments must be made on the [employer]/computer document * Subjective HPI: Patient is a 56-year-old male with history of di abetes mellitus type 2 and hypertension who was initially admitted for alte red mental status and right- sided foot infection. 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 The p atient is anemic with current Hgb 7.1. He has received a total of 3 un its pRBCs during this hospitalization. KUB on 09/04 was negative for acute GI process. T he patient denies overt GIB, dark tarry stools, nausea, a bdominal pain, or vomiting. He has never had EGD or colonoscopy. 09/06: No complaints today. Hemoglobin stable. N o overt GI bleed. Plan for colonoscopy and endoscopy on Thursday 09/07: No complaints today. No overt GI bleed. Pl anning for colonoscopy and endoscopy tomorrow 09/08: EGD mild gastritis. colonoscopy rectal eugenia yp s/p snare. No other abnormalities 09/09: doing well. Seen at the gym. No bleeding. 09/10: Doing well. No bleeding. tolerating diet. Movig bowels 09/11: doing well. States his leg swelling is bet ter. Tolerating diet. having normal BM 09/12: dooing well. doing work-out at the gym. To lerating diet. Normal BMs. Stable H/H Objective Physical Exam HEENT: atraumatic, normocephalic Neck: full range of motion, non-tender Respiratory: symmetric expansion, no distress Abdomen: non-tender, normal bowel sounds, soft, no distention, no guarding Extremities: right BKA Considered stroke alert: no Skin: dry Diagnosis, Assessment Plan Free Text A P: 1. Positive FOBT-and anemia: The patient denies overt GIB, dark tarry stools, nausea, abdominal pain, or vomiting. He is not o n anticoagulation therapy. -Continue PPI. The patient has never had EGD or colonoscopy prior to this admission s/p EGD and colonoscopy. EGD showed mild gastrit is. Colonoscopy showed rectal polyp that was resected by snare. no evidence of bleeding. Pathology of polyp came back as tubular adenoma. recommend repeatin g colonoscopy in 5 years Anemia likely secondary to chronic kidney diseas e. Can consider video capsule endoscopy as outpt if evidence of dropping H/H Will follow along Consultants: cardiology, endocrinology, [facility] ist, infectious disease, podiatry at 0913 RPT #:[id number] END OF REPORT 2022-09-12 08:35:00-00:00 [facility] ([facility]) Infectious Dis. Progress Note REPORT#:[id number] REPORT STATUS: Signed DATE:09/12/22 TIME: 834 PATIENT: KARMA ROWLAND UNIT #: [id number] ROOM/BED: 53-1 : 63 AGE: 56 SEX: M ATTEND: Fredy Vences MD ADM AUTHOR: Merry Wolff MD * ALL edits or amendments must be made on the el [employer]/computer document * Subjective HPI: PT is a 56yr old male with h istory of diabetes mellitus type 2, hypertension who was admitted with altered mental status and righ t-sided foot infection. According to him, he noticed a blister on his right foot around 3 days prior to presentation. His foot got progressively more sw ollen and erythema extended proximally to his lateral foot and ankle. CT abd omen and pelvis with contrast is concerning for possible prostate abscess. CT of lower extremity without contrast shows extensive sof t tissue edema with mottled gas in the subcutaneous and intramuscular compartments of the foot, comp atible with gas-forming infection. Patient's blood cultures have come ba ck positive for MRSA in 2 out of 2 sets. PT has had persistent (+)Ve cx for MR FREITAS 08/18- 08/22. He underwent a debridement of his foot on 08/19 and cx g rew MRSA. PT was started on Vancomycin and clindamycin on 08/18. His MRI showed a prosta te abscess. 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 Pt underwent a transrectal aspiration and unroofing of prostate abscess 08/26 and cx grew Citrobacter, Enterococcus, MRSA. 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 JIMENA done 09/02. Pt was tr ansferred to Rehab on 09/02. 09/11 doing well, no fever, no chills 09/12 doing well, working with PT in hallway Patient reports: No: cough, diarrhea, fever, headache, nausea, sh ortness of breath, vomiting. Portions of this section wer e scribed by Jill Quintero on 09/12/22 at 1209 Objective General VS/I O: Vital Signs Date Temp Pulse Resp B/P B/P Mean Pulse Ox FiO2 09/11-09/12 97.7-98.1 74-83 14-18 113-162/62-80 78.7-106.3 95-97 Last Documented: Result Date Time Pulse Ox 95 09/12 0647 B/P 136/76 09/12 06 B/P Mean 96.2 09/12 0647 O2 Delivery Room air 09/12 646 Temp 97.9 09/12 0647 Pulse 83 09/12 0647 Resp 17 09/12 0647 O2 Flow Rate 2 09/08 1322 Vital Signs: Date Time Temp Pulse Resp B/P B/P Pulse O2 O2 F low FiO2 Mean Ox Delivery Rate 09/12 0647 97.9 83 17 136/76 96.2 95 Room air 09/11 2339 98.1 82 14 113/62 78.7 97 09/11 1841 97.7 82 18 151/80 103.5 95 Room air 09/11 1531 98.1 74 18 145/76 99.3 96 Room air 09/11 1144 83 162/79 106.3 24 hour I O ending at 0700: 09/12 0700 09/11 1900 Intake Total 100.00 960 Output Total 850 375 Balance -750.00 585 Intake, IV 100.00 Intake, Oral 960 Number 0 0 Incontinent Voids Number Voids 0 0 Output, Urine 850 375 PATIENT WEIGHT: Weight (lb): 165 Weight (oz): 5.55 Weight (kg): 75.000 Antibiotic start date: Antibiotic: vancomycin Start Date:09/03 Antibiotic: daptomycin Start Date:08/28-09/03 Antibiotic: cefepime Start Date:09/01- Antibiotic: merrem Start Date:08/27-09/01 Physical Exam General appearance: alert, awake, oriented Head/Eyes: atraumatic, clear cornea, EOMI, felisa l conjunctiva/sclera, normal eyelids/periorb, normocephalic, PERRL ENT: moist mucosal membranes, normal dentition Neck: full range of motion Cardiovascular: normal heart sounds, regular rat e rhythm Respiratory: clear to auscultation, aerating wel l Abdomen: non-tender, normal bowel sounds, soft Extremities: moves all, right BKA Left foot woun d +dressing in place 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 X 3 Considered stroke alert: no Skin: dry, intact Results Findings/Data: Laboratory Tests 09/12 09/12 09/11 09/11 09/11 0604 0420 1933 1532 1114 Chemistry Sodium (134 - 147 mEq/L) 134 Potassium (3.4 - 5.0 mEq/L) 4.2 Chloride (100 - 108 mEq/L) 106 Carbon Dioxide (21 - 33 mEq/l) 20 L Anion Gap (0 - 20) 12 BUN (7 - 18 mg/dL) 31 H Creatinine (0.6 - 1.3 mg/dL) 2.4 H Glomerular Filtr Rate (90 - 95) 30.5 L Glucose (70 - 110 mg/dL) 167 H POC Glucose (70 - 110 MG/DL) 170 H 150 H 93 109 Calcium (8.0 - 10.5 mg/dL) 8.2 Phosphorus (2.5 - 4.9 MG/DL) 4.4 Magnesium (1.80 - 2.40 mg/dL) 1.86 Laboratory Tests 09/12 0420 Hematology WBC (4.5 - 11.0 x10 3/uL) 8.8 RBC (4.00 - 5.60 x10 6/uL) 2.73 L Hgb (12.5 - 16.9 g/dL) 7.7 L Hct (37.5 - 50.7 %) 23.7 L MCV (81.0 - 99.0 fL) 86.8 MCH (27.0 - 33.0 pg) 28.2 MCHC (33.0 - 37.0 g/dL) 32.5 L RDW (11.5 - 14.5 %) 13.8 Plt Count (150 - 400 x10 3/uL) 248 MPV (7.0 - 9.0 fL) 9.7 H Neut % (Auto) (56.0 - 77.0 %) 72.3 Lymph % (Auto) (14.0 - 32.0 %) 15.0 Boundary % (Auto) (4.8 - 9.0 %) 7.9 Eos % (Auto) (0.3 - 3.7 %) 3.8 H Baso % (Auto) (0.0 - 2.0 %) 0.3 Neut # (Auto) (2.0 - 7.6 x10 3/uL) 6.34 Lymph # (Auto) (1.0 - 3.8 x10 3/uL) 1.31 Boundary # (Auto) (0.1 - 0.8 x10 3/uL) 0.69 Eos # (Auto) (0.0 - 0.2 x10 3/uL) 0.33 H Baso # (Auto) (0.0 - 0.2 x10 3/uL) 0.03 Abs Immat Gran (auto) (0.00 - 0.03 x10 3/uL) 0. 06 H Add Manual Diff NO Immature Gran % (0.0 - 2.0 %) 0.7 Nucleated RBC % (0 - 0 %) 0.0 Nucleated RBCs # (Man) (0.0 - 0.1 x10 3/uL) 0.0 0 Laboratory Tests 09/11 09/11 2130 1445 Toxicology Random Vancomycin (mcg/mL) 16.7 18.3 Portions of this section janice kendall scribed by Jill Quintero on 09/12/22 at 0835 Treatment Prophylaxis Treatment Prophylaxis Lines: PICC CVC/PICC documentation: The data below has been imported from nursing do cumentation. Any exceptions have been noted below under Provider comments. CVC/PICC insertion date/time : PICC single lumen Arm upper Right Inserted 1720 Provider comments on imported nursing data: [] Portions of this section janice kendall scribed by Jill Quintero on 09/12/22 at 0835 Diagnosis, Assessment Plan Free Text A P: *MRSA bacteremia -Initial blood cultures from 08/18/2022 positive for MRSA in 2 out of 2 sets. -Repeat blood cultures 08/21/2022 are already po sitive for MRSA in 2 out of 2 sets, suggesting persistent high-grade bacteremi a. -TTE 08/18/2022 negative for any obvious vegetat ions. -08/28 neg -JIMENA 09/02 neg *Prostatic abscess -s/p transrectal aspiration and unroofing on 08/26 -cx MRSA, citrobacter (r-cefazolin) Enterococcus raffinosus (S-amp,pcn, vancomycin), bacteriodes *ERIKA -nephrology following; worsening *Hyponatremia *Diabetic neuropathy *Diabetes mellitus type 2 *Hypertension *anemia 09/08 -cont on Cefepime and vancomycin til 5/3 for kellen atment of Prostate abscess -follow esr and crp -EGD today 09/09 -on cefepime and vancomycin til 5/3 for treatmen t of prostate abscess 09/10 on cefepime and vancomycin til 5/3 for treatment of prostate abscess check esr and crp in am 4/20 on cefepime and vancomycin til 09/24 for t reatment of prostate abscess; if pt is discharge before 09/24 can change to oral abx 09/12 on cefepime and vancomycin til 09/24 for treatment of prostate abscess; will change to Merrem 500mg Iv Q12hrs and Daptomycin as creat is worsening Consultants: cardiology, endocrinology, hospital ist, infectious disease, podiatry Portions of this section wer e scribed by Jill Quintero on 09/12/22 at 1209 at 1621 RPT #:[id number] END OF REPORT 2022-09-12 07:08:00-00:[address] [facility] ([facility]) Pain Management Progress Note REPORT#:[id number] REPORT STATUS: Signed DATE:09/12/22 TIME: 707 PATIENT: KARMA ROWLAND UNIT #: [id number] ROOM/BED: [place] [address] : 63 AGE: 56 SEX: M ATTEND: Fredy Vences MD ADM AUTHOR: Charlie Quiroga CLAY MILLER * ALL edits or amendments must be made on the [employer]/computer document * Charlie Quiroga 09/12/22 0708: Subjective Chief complaint: Patient seen and examined. Chart/MAR reviewed. Patient had adequate pain co ntrol last night. Medications are effective for pain when needed. No side effects noted at th is time. Will continue to wean IV pain medications. Patient being seen for Acute postoperative pain, right foot and ankle gangrene, requiring BKA, Constipation Patient is still requiring medications to help w ith managing current problems. Patient is requiring IV narcotics to help manage breakthrough pain No fever/chills, chest pain, orthopnea, nausea/v omiting, pruritus, or hallucinations. 14 point ROS undertaken unremarkable except as n oted Objective General VS/I O: Vital Signs Date Temp Pulse Resp B/P B/P Mean Pulse Ox FiO2 09/11-09/12 97.7-98.1 74-83 14-18 113-162/62-80 78.7-106.3 95-97 Last Documented: Result Date Time Pulse Ox 95 09/12 646 B/P 136/76 09/12 646 B/P Mean 96.2 09/12 646 O2 Delivery Room air 09/12 646 Temp 97.9 09/12 646 Pulse 83 09/12 0647 Resp 17 09/12 0647 O2 Flow Rate 2 09/08 1322 24 hour I O ending at 0700: 09/12 0700 09/11 1900 Intake Total 100.00 960 Output Total 850 375 Balance -750.00 585 Intake, IV 100.00 Intake, Oral 960 Number 0 0 Incontinent Voids Number Voids 0 0 Output, Urine 850 375 PATIENT WEIGHT: Weight (lb): 165 Weight (oz): 5.55 Weight (kg): 75.000 Medications: Active Meds + DC'd Last 24 Hrs Vancomycin HCl (VANCOMYCIN HCL) 500 MG ONCE ONE IV (DC) Sodium Chloride (SODIUM CHLORIDE 0.9% 100 ML) 1 00 ML Cefepime HCl (MAXIPIME) 1 GM Q8H IV Sodium Chloride (SODIUM CHLORIDE) 10 ML Gabapentin (NEURONTIN) 100 MG Q8HR PO Hydromorphone HCl (DILAUDID) 0.5 MG Q12H PRN PRN IV Oxycodone/Acetaminophen (PERCOCET 5/325MG TAB) 2 TAB Q4H PRN PRN PO Ferric Sodium Gluconate Complex (FERRLECIT) 125 MG DAILY IV Sodium Chloride (SODIUM CHLORIDE 0.9%) 100 ML Folic Acid (FOLIC ACID) 2 MG DAILY PO Multivitamins (TAB-A-MOHAN) 1 TAB DAILY PO Carvedilol (COREG) 12.5 MG C BK DIN PO Insulin Glargine (Semglee) 5 UNIT BEDTIME SUBQ Furosemide (LASIX 20MG INJ) 20 MG BLOOD-DOSE BET WEEN IV (CKD) Sodium Chloride (SODIUM CHLORIDE) 10 ML ASDIR IV Furosemide (LASIX) 20 MG DAILY PO (DC) Pantoprazole Sodium (PROTONIX) 40 MG Q12HR IV Polyethylene Glycol (MIRALAX) 17 GM DAILY PO Sennosides (Senna Lax 8.6 MG TABLET) 8.6 MG MADALYN Y PO Sodium Chloride (SODIUM CHLORIDE) 10 ML ASDIR NV N IV Amitriptyline HCl (ELAVIL) 25 MG BEDTIME PO Zinc Oxide (ZINC OXIDE 30 GM OINTMENT) 1 APPLIC DAILY TOPICAL Sterile Water (WATER FOR IRRIGATION) DRESSING CH GELACIO ASDIR PRN IRR Insulin Human Lispro (HUMALOG) 0 AC HS SUBQ Dextrose/Water (DEXTROSE 10% IN WATER) 125 ML DIR PRN IV (CKD) Dextrose/Water (DEXTROSE 10% IN WATER) 250 ML DIR PRN IV (CKD) Glucagon (GLUCAGON) 1 MG ASDIR PRN IM Lidocaine (LIDODERM) 1 PATCH DAILY TOPICAL Insulin Human Lispro (HUMALOG) 5 UNIT AC SUBQ Miscellaneous Information (VANCOMYCIN PHARMACY T O DOSE) 1 EACH ASDIR IV (CKD) Heparin Sodium (HEPARIN 5000 UNITS/ML) 5,000 UNI T Q8HR SUBQ Acetaminophen (TYLENOL) 650 MG Q6H PRN PRN PO Bisacodyl (DULCOLAX) 10 MG DAILY PRN PRN RECTAL Docusate Sodium (COLACE) 100 MG Q12H PRN PRN PO Hydralazine HCl (APRESOLINE) 10 MG Q6H PRN PRN I V Ondansetron HCl (ZOFRAN) 4 MG Q6H PRN PRN IV Physical Exam General appearance: alert, awake, oriented, plea delia Head/eyes: atraumatic, EOMI, normocephalic, norm al conjunctiva/sclera, PERRLA ENT: normal ear left, normal ear right, normal n ose, normal pharynx, moist mucosal membranes Neck: full range of motion, no lymphadenopathy, supple/no meningismus Cardiovascular: regular rate rhythm Respiratory: clear to auscultation, no distress, aerating well Abdomen: soft, non-tender, no distention , active bowel sounds in all quarants. 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, no sensory deficit s, CNII-XII grossly intact Considered stroke alert: no Skin: normal color, normal turgor Psychiatry: normal affect Results Findings/data: Laboratory Tests: 09/12 09/11 09/11 09/11 09/11 0604 2130 1933 1532 1445 Chemistry POC Glucose (70 - 110 MG/DL) 170 H 150 H 93 Toxicology Random Vancomycin (mcg/mL) 16.7 18.3 09/11 1114 Chemistry POC Glucose (70 - 110 MG/DL) 109 Diagnosis, Assessment Plan Free text A P: A/P: Patient is a 56 year old male who presents with: Recent prostate abscess -Status post TURP with unroofing of abscess -IV antibiotics with vancomycin until 09-24-2022 Acute postoperative pain, right foot and ankle g angrene, requiring BKA -Patient is at risk for further amputations or l oss of limb due to comorbid conditions -Status post right BKA 08/28/2022 -DC Check 10/325 1 tablet p.o. every 4 hours as needed pain scale 4 10 -Tylenol 650 mg p.o. every 6 hours as needed ofelia n scale 1 3 -reduce Dilaudid 0.5 mg IV d aily as needed pain scale 7 10, second line therapy (09/12) -Percocet 10/325mg every 4 hours as needed, pain scale 4-10 (09/10) -Lidoderm patch to left ankle daily -IV antibiotics with vancomycin until 09-24-2022 -Local wound care -manageable Diabetic peripheral neuropathy -amitriptyline 25mg PO QHS -Gabapentin 100mg every 8 hours (09/10) -manageable Hypertension -We will monitor hypertension and tachycardia du e to pain, and hypotension as well as bradycardia secondary over sedation with narcotics -Hydralazine as needed Elevated LFTs -08/20/22-AST 51, ALT 22 -09/03/2022-AST 15, ALT 7 -Patient will require close monitoring since he is using narcotics with Tylenol Impaired functional mobility, balance, gait, and endurance -PT/OT Antalgic/Impaired gait -PT/OT -Improve strength, endurance, self-care, gait, b alance, ADLs -Fall precautions per unit protocol -Pain medications as outlined above Constipation -We will monitor while utilizing opioid narcotic medications. -Adequate fluid intake also discussed. -Colace 100 mg p.o. twice daily as needed -Dulcolax 10 mg rectally daily as needed -Senna lax 8.6mg daily -Miralax 17gm daily -manageable Disposition: Past Medical History: Prostate abscess, right fo ot foot and ankle gangrene, diabetes, hypertension, hyperlipidemia Past Surgical History: TURP, right BKA Family History: Noncontributory Social History: Denies tobacco, alcohol, or drug use Allergies: NKDA Patient has failed conservative medical therapy. Patient will require monitoring while utilize na rcotic medications for any adverse effects, and will adjust as needed Plan of care discussed with patient and nurse All diagnostics of last 24 hours been reviewed. Risks versus benefits of opioid medications were reviewed to include, but not limited to respiratory depression, accid ental overdose, altered mental status, sudden , constipation which could result in bowel obstruction, seizures, withdrawal, dependency addiction, risk for falls . Case discussed with Dr Ng whom agrees. Thank you for the consultation. [place] [facility] NURSE: -database searched, no information found Kingsley Ng 09/30/22 0831: Attestations Physician Attestation Agree w/findings plan: The patient was seen and examined by Charlie lópez. I personally saw the patient and developed the care plan, which was c ontinued by the mid-level provider. at 1051 Electronically Signed by Kingsley Ng MD on 3 at 0835 RPT #:[id number] END OF REPORT 2022-09-12 06:09:00-00:00 [facility] Nephrology Progress Note REPORT#:[id number] REPORT STATUS: Signed DATE:09/12/22 TIME: 608 PATIENT: KARMA ROWLAND UNIT #: [id number] ROOM/BED: [place] [address] : 63 AGE: 56 SEX: M ATTEND: Fredy Vences MD ADM AUTHOR: Barrera Ramírez MD * ALL edits or amendments must be made on the el [employer]/computer document * Subjective Chief complaint: Infected foot HPI: Patient seen and evaluated on 09/09/2022, note [facility], records reviewed and orders placed on 09/08/2022, 56-year-old male with history of diabetes mellitus type 2, hypertension and per ipheral vascular disease who was initially admitted to acute care with altered mental status and rig ht foot infection/gangrene, 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 Patient had persistent anemia requiring blood transfusion. H is fecal occult blood was positive and his creatinine was 1.2 and increase d to 1.4 today, laboratories today showed hemoglobin 8.5, platelet 231, blood count 9.1, sodium 135, potassium 4.6, CO2 22, BUN 22, creatinin e 1.4. Renal consult was requested for evaluation management of pako vated BUN and creatinine and if his decreased GFR is contributing to his anemia. Patient reports: Yes: complaints. Comments: Patient seen and evaluated, HPI no change from i nitial, feels okay. Review of Systems Constitutional: Reports: fatigue. Denies: chills, fever. Skin: Reports: swelling. Denies: rash. Allergy/Immun: Denies: hives, itching. Eyes: Denies: redness, discharge. ENT: Denies: ear drainage, ear ringing. Respiratory: Denies: hemoptysis, SOB. Cardiovascular: Denies: chest pain. Objective General VS/I O: Vital Signs: Date Time Temp Pulse Resp B/P B/P Pulse O2 O2 F low FiO2 Mean Ox Delivery Rate 09/11 2339 36.7 82 14 113/62 78.7 97 09/11 1841 36.5 82 18 151/80 103.5 95 Room air 09/11 1531 36.7 74 18 145/76 99.3 96 Room air 09/11 1144 83 162/79 106.3 09/11 0640 36.5 81 18 137/71 92.8 96 Nasal cannula 24 hour I O ending at 0700: 09/12 0700 09/11 1900 Intake Total 100.00 960 Output Total 850 375 Balance -750.00 585 Intake, IV 100.00 Intake, Oral 960 Number 0 0 Incontinent Voids Number Voids 0 0 Output, Urine 850 375 PATIENT WEIGHT: Weight (lb): 165 Weight (oz): 5.55 Weight (kg): 75.000 Medications Active Meds + DC'd Last 24 Hrs Vancomycin HCl (VANCOMYCIN HCL) 500 MG ONCE ONE IV (DC) Sodium Chloride (SODIUM CHLORIDE 0.9% 100 ML) 1 00 ML Cefepime HCl (MAXIPIME) 1 GM Q8H IV Sodium Chloride (SODIUM CHLORIDE) 10 ML Gabapentin (NEURONTIN) 100 MG Q8HR PO Hydromorphone HCl (DILAUDID) 0.5 MG Q12H PRN PRN IV Oxycodone/Acetaminophen (PERCOCET 5/325MG TAB) 2 TAB Q4H PRN PRN PO Ferric Sodium Gluconate Complex (FERRLECIT) 125 MG DAILY IV Sodium Chloride (SODIUM CHLORIDE 0.9%) 100 ML Folic Acid (FOLIC ACID) 2 MG DAILY PO Multivitamins (TAB-A-MOHAN) 1 TAB DAILY PO Carvedilol (COREG) 12.5 MG C BK DIN PO Insulin Glargine (Semglee) 5 UNIT BEDTIME SUBQ Furosemide (LASIX 20MG INJ) 20 MG BLOOD-DOSE BET WEEN IV (CKD) Sodium Chloride (SODIUM CHLORIDE) 10 ML ASDIR IV Furosemide (LASIX) 20 MG DAILY PO (DC) Pantoprazole Sodium (PROTONIX) 40 MG Q12HR IV Polyethylene Glycol (MIRALAX) 17 GM DAILY PO Sennosides (Senna Lax 8.6 MG TABLET) 8.6 MG MADALYN Y PO Sodium Chloride (SODIUM CHLORIDE) 10 ML ASDIR NV N IV Amitriptyline HCl (ELAVIL) 25 MG BEDTIME PO Zinc Oxide (ZINC OXIDE 30 GM OINTMENT) 1 APPLIC DAILY TOPICAL Sterile Water (WATER FOR IRRIGATION) DRESSING CH GELACIO ASDIR PRN IRR Insulin Human Lispro (HUMALOG) 0 AC HS SUBQ Dextrose/Water (DEXTROSE 10% IN WATER) 125 ML DIR PRN IV (CKD) Dextrose/Water (DEXTROSE 10% IN WATER) 250 ML DIR PRN IV (CKD) Glucagon (GLUCAGON) 1 MG ASDIR PRN IM Lidocaine (LIDODERM) 1 PATCH DAILY TOPICAL Insulin Human Lispro (HUMALOG) 5 UNIT AC SUBQ Miscellaneous Information (VANCOMYCIN PHARMACY T O DOSE) 1 EACH ASDIR IV (CKD) Heparin Sodium (HEPARIN 5000 UNITS/ML) 5,000 UNI T Q8HR SUBQ Acetaminophen (TYLENOL) 650 MG Q6H PRN PRN PO Bisacodyl (DULCOLAX) 10 MG DAILY PRN PRN RECTAL Docusate Sodium (COLACE) 100 MG Q12H PRN PRN PO Hydralazine HCl (APRESOLINE) 10 MG Q6H PRN PRN I V Ondansetron HCl (ZOFRAN) 4 MG Q6H PRN PRN IV Physical Exam General appearance: alert, no acute distress Head/eyes: atraumatic, normocephalic ENT: normal nose Neck: non-tender, supple/no meningismus Cardiovascular: normal heart sounds, no rub Respiratory: aerating well, symmetric expansion Abdomen: non-tender, soft Genitourinary: no flank pain Extremities: pitting edema, non-tender Musculoskeletal: no CVA tenderness, no tendernes s 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, 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 Considered stroke alert: no Skin: dry, intact Results Findings/Data: Laboratory Tests 09/11 09/11 09/11 09/11 09/11 1933 1532 1114 0541 0445 Chemistry Sodium (134 - 147 mEq/L) 134 Potassium (3.4 - 5.0 mEq/L) 4.3 Chloride (100 - 108 mEq/L) 105 Carbon Dioxide (21 - 33 mEq/l) 22 Anion Gap (0 - 20) 12 BUN (7 - 18 mg/dL) 26 H Creatinine (0.6 - 1.3 mg/dL) 2.0 H Glomerular Filtr Rate (90 - 95) 38.0 L Glucose (70 - 110 mg/dL) 109 POC Glucose (70 - 110 MG/DL) 150 H 93 109 127 H Calcium (8.0 - 10.5 mg/dL) 8.3 Phosphorus (2.5 - 4.9 MG/DL) 4.7 Magnesium (1.80 - 2.40 mg/dL) 1.90 09/10 09/10 09/10 09/10 09/10 1851 1715 1625 1007 0545 Chemistry Sodium (134 - 147 mEq/L) 135 Potassium (3.4 - 5.0 mEq/L) 4.2 Chloride (100 - 108 mEq/L) 107 Carbon Dioxide (21 - 33 mEq/l) 21 Anion Gap (0 - 20) 11 BUN (7 - 18 mg/dL) 25 H Creatinine (0.6 - 1.3 mg/dL) 1.9 H Glomerular Filtr Rate (90 - 95) 40.4 L Glucose (70 - 110 mg/dL) 156 H POC Glucose (70 - 110 MG/DL) 97 75 58 L 213 H Calcium (8.0 - 10.5 mg/dL) 8.3 Phosphorus (2.5 - 4.9 MG/DL) 4.6 Magnesium (1.80 - 2.40 mg/dL) 1.89 09/10 09/09 09/09 09/09 09/09 0541 1911 1606 1526 1049 Chemistry POC Glucose (70 - 110 MG/DL) 154 H 102 109 30 L 90 Laboratory Tests 09/11 09/10 0445 0545 Hematology WBC (4.5 - 11.0 x10 3/uL) 7.9 8.6 RBC (4.00 - 5.60 x10 6/uL) 2.94 L 3.08 L Hgb (12.5 - 16.9 g/dL) 8.3 L 8.6 L Hct (37.5 - 50.7 %) 25.8 L 26.7 L MCV (81.0 - 99.0 fL) 87.8 86.7 MCH (27.0 - 33.0 pg) 28.2 27.9 MCHC (33.0 - 37.0 g/dL) 32.2 L 32.2 L RDW (11.5 - 14.5 %) 13.7 13.8 Plt Count (150 - 400 x10 3/uL) 269 265 MPV (7.0 - 9.0 fL) 9.8 H 9.6 H Neut % (Auto) (56.0 - 77.0 %) 67.9 69.4 Lymph % (Auto) (14.0 - 32.0 %) 16.1 15.5 Boundary % (Auto) (4.8 - 9.0 %) 9.1 H 8.5 Eos % (Auto) (0.3 - 3.7 %) 5.6 H 5.5 H Baso % (Auto) (0.0 - 2.0 %) 0.5 0.4 Neut # (Auto) (2.0 - 7.6 x10 3/uL) 5.35 5.94 Lymph # (Auto) (1.0 - 3.8 x10 3/uL) 1.27 1.33 Boundary # (Auto) (0.1 - 0.8 x10 3/uL) 0.72 0.73 Eos # (Auto) (0.0 - 0.2 x10 3/uL) 0.44 H 0.47 H Baso # (Auto) (0.0 - 0.2 x10 3/uL) 0.04 0.03 Abs Immat Gran (auto) (0.00 - 0.03 x10 3/uL) 0. 06 H 0.06 H Add Manual Diff NO NO Immature Gran % (0.0 - 2.0 %) 0.8 0.7 Nucleated RBC % (0 - 0 %) 0.0 0.0 Nucleated RBCs # (Man) (0.0 - 0.1 x10 3/uL) 0.0 0 0.00 Laboratory Tests 09/11 09/11 09/10 09/09 2130 1445 1430 1403 Toxicology Random Vancomycin (mcg/mL) 16.7 18.3 15.7 15.4 Recent Impressions: ULTRASOUND - US RETROPERITONEAL COM 09/10 1311 Report Impression - Status: SIGNED Entered: 09/10/2022 1503 IMPRESSION: No acute findings. Impression By: Hakeem Jacobo Laboratory Tests 09/11 09/11 09/11 1933 1532 1114 Chemistry POC Glucose (70 - 110 MG/DL) 150 H 93 109 Laboratory Tests 09/11 09/11 2130 1445 Toxicology Random Vancomycin (mcg/mL) 16.7 18.3 Diagnosis, Assessment Plan Free Text A P: Patient seen and evaluated, discussed with care team, images and laboratories reviewed. Diabetes mellitus: Insulin: Monitor bloo d sugar closely and adjust medications as needed, followed by endocrinology. Hypertension: Blood pressure is not well controlled, increase Coreg to 12.5 mg p.o. 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 We will check serum immu nofixation. Acute kidney injury: We will check renal bladder ultrasound, check postvoid residual, check urine protein creatinine ratio Hypomagnesemia: We will supplement 09/10/2022 laboratory this mo rning showed sodium 135, potassium 4.2, CO2 21, BUN 25, creatinine 1.9 continues to worsen, etiology unclear, however his development some eosinophili a not sure if he is developing AIN, suggest changing cefepime to a different class of antibiotic if p ossible, will check renal bladder ultrasound 09/11/2022 laboratory this mo rning showed sodium 134, potassium 4.3, CO2 22, BUN 26, creatinine 2 up from 1.9, hopefully creatini ne is plateauing, renal ultrasound negative. 09/12/2022 laboratory this mo rning showed sodium 134, potassium 4.2, CO2 20, BUN 31, creatinine 2.4 continues to worsen, discussed with ID, AIN is probably the etiology of the unexplained deterioration of his renal function, antibiotics to be adjusted by infectious disease, will give Solu-Medrol 125 mg IV daily for 3 days. Significant lower extremity edema, will st art Lasix 20 mg p.o. twice daily Consultants: cardiology, endocrinology, hospital ist, infectious disease, podiatry Electronically Signed by Barrera Ramírez MD on at 1045 RPT #:[id number] END OF REPORT 2022-09-11 17:23:00-00:00 [facility] ([facility]) Endocrinology Progress Note REPORT#:[id number] REPORT STATUS: Signed DATE:09/11/22 TIME: 1723 PATIENT: KARMA ROWLAND UNIT #: [id number] ROOM/BED: [place] [address] : 61 AGE: 56 SEX: M ATTEND: Fredy Vences MD ADM AUTHOR: Braxton Chapin MD * ALL edits or amendments must be made on the [employer]/computer document * Subjective Patient reports: no complaints Objective General VS: Last Documented: Result Date Time Pulse Ox 96 09/11 1531 B/P 145/76 09/11 1531 B/P Mean 99.3 09/11 1531 O2 Delivery Room air 09/11 153 Temp 36.7 09/11 1531 Pulse 74 09/11 1531 Resp 18 09/11 1531 O2 Flow Rate 2 09/08 1322 PATIENT WEIGHT: Weight (lb): 165 Weight (oz): 5.55 Weight (kg): 75.000 Medications: Active Meds + DC'd Last 24 Hrs Cefepime HCl (MAXIPIME) 1 GM Q8H IV Sodium Chloride (SODIUM CHLORIDE) 10 ML Gabapentin (NEURONTIN) 100 MG Q8HR PO Hydromorphone HCl (DILAUDID) 0.5 MG Q12H PRN PRN IV Oxycodone/Acetaminophen (PERCOCET 5/325MG TAB) 2 TAB Q4H PRN PRN PO Ferric Sodium Gluconate Complex (FERRLECIT) 125 MG DAILY IV Sodium Chloride (SODIUM CHLORIDE 0.9%) 100 ML Folic Acid (FOLIC ACID) 2 MG DAILY PO Multivitamins (TAB-A-MOHAN) 1 TAB DAILY PO Carvedilol (COREG) 12.5 MG C BK DIN PO Insulin Glargine (Semglee) 5 UNIT BEDTIME SUBQ Furosemide (LASIX 20MG INJ) 20 MG BLOOD-DOSE BET WEEN IV (CKD) Sodium Chloride (SODIUM CHLORIDE) 10 ML ASDIR IV Furosemide (LASIX) 20 MG DAILY PO Pantoprazole Sodium (PROTONIX) 40 MG Q12HR IV Polyethylene Glycol (MIRALAX) 17 GM DAILY PO Sennosides (Senna Lax 8.6 MG TABLET) 8.6 MG CODY LY PO Sodium Chloride (SODIUM CHLORIDE) 10 ML ASDIR NV N IV Amitriptyline HCl (ELAVIL) 25 MG BEDTIME PO Zinc Oxide (ZINC OXIDE 30 GM OINTMENT) 1 APPLIC DAILY TOPICAL Sterile Water (WATER FOR IRRIGATION) DRESSING CH GELACIO ASDIR PRN IRR Insulin Human Lispro (HUMALOG) 0 AC HS SUBQ Dextrose/Water (DEXTROSE 10% IN WATER) 125 ML DIR PRN IV (CKD) Dextrose/Water (DEXTROSE 10% IN WATER) 250 ML DIR PRN IV (CKD) Glucagon (GLUCAGON) 1 MG ASDIR PRN IM Lidocaine (LIDODERM) 1 PATCH DAILY TOPICAL Insulin Human Lispro (HUMALOG) 5 UNIT AC SUBQ Miscellaneous Information (VANCOMYCIN PHARMACY T O DOSE) 1 EACH ASDIR IV (CKD) Heparin Sodium (HEPARIN 5000 UNITS/ML) 5,000 UNI T Q8HR SUBQ Acetaminophen (TYLENOL) 650 MG Q6H PRN PRN PO Bisacodyl (DULCOLAX) 10 MG DAILY PRN PRN RECTAL Docusate Sodium (COLACE) 100 MG Q12H PRN PRN PO Hydralazine HCl (APRESOLINE) 10 MG Q6H PRN PRN I V Ondansetron HCl (ZOFRAN) 4 MG Q6H PRN PRN IV Physical Exam General appearance: alert, awake Diagnosis, Assessment Plan Hospital course to date: Laboratory Tests: 09/11 09/11 09/11 09/11 09/11 1532 1445 1114 0541 0445 Chemistry Sodium (134 - 147 mEq/L) 134 Potassium (3.4 - 5.0 mEq/L) 4.3 Chloride (100 - 108 mEq/L) 105 Carbon Dioxide (21 - 33 mEq/l) 22 Anion Gap (0 - 20) 12 BUN (7 - 18 mg/dL) 26 H Creatinine (0.6 - 1.3 mg/dL) 2.0 H Glomerular Filtr Rate (90 - 95) 38.0 L Glucose (70 - 110 mg/dL) 109 POC Glucose (70 - 110 MG/DL) 93 109 127 H Calcium (8.0 - 10.5 mg/dL) 8.3 Phosphorus (2.5 - 4.9 MG/DL) 4.7 Magnesium (1.80 - 2.40 mg/dL) 1.90 Hematology WBC (4.5 - 11.0 x10 3/uL) 7.9 RBC (4.00 - 5.60 x10 6/uL) 2.94 L Hgb (12.5 - 16.9 g/dL) 8.3 L Hct (37.5 - 50.7 %) 25.8 L MCV (81.0 - 99.0 fL) 87.8 MCH (27.0 - 33.0 pg) 28.2 MCHC (33.0 - 37.0 g/dL) 32.2 L RDW (11.5 - 14.5 %) 13.7 Plt Count (150 - 400 x10 3/uL) 269 MPV (7.0 - 9.0 fL) 9.8 H Neut % (Auto) (56.0 - 77.0 %) 67.9 Lymph % (Auto) (14.0 - 32.0 %) 16.1 Boundary % (Auto) (4.8 - 9.0 %) 9.1 H Eos % (Auto) (0.3 - 3.7 %) 5.6 H Baso % (Auto) (0.0 - 2.0 %) 0.5 Neut # (Auto) (2.0 - 7.6 x10 3/uL) 5.35 Lymph # (Auto) (1.0 - 3.8 x10 3/uL) 1.27 Boundary # (Auto) (0.1 - 0.8 x10 3/uL) 0.72 Eos # (Auto) (0.0 - 0.2 x10 3/uL) 0.44 H Baso # (Auto) (0.0 - 0.2 x10 3/uL) 0.04 Abs Immat Gran (auto) (0.00 - 0.03 0.06 H x10 3/uL) Add Manual Diff NO Immature Gran % (0.0 - 2.0 %) 0.8 Nucleated RBC % (0 - 0 %) 0.0 Nucleated RBCs # (Man) (0.0 - 0.1 0.00 x10 3/uL) Toxicology Random Vancomycin (mcg/mL) 18.3 09/10 1851 Chemistry POC Glucose (70 - 110 MG/DL) 97 Laboratory Tests: 09/10 09/10 09/10 09/10 09/10 1715 1625 1430 1007 0545 Chemistry Sodium (134 - 147 mEq/L) 135 Potassium (3.4 - 5.0 mEq/L) 4.2 Chloride (100 - 108 mEq/L) 107 Carbon Dioxide (21 - 33 mEq/l) 21 Anion Gap (0 - 20) 11 BUN (7 - 18 mg/dL) 25 H Creatinine (0.6 - 1.3 mg/dL) 1.9 H Glomerular Filtr Rate (90 - 95) 40.4 L Glucose (70 - 110 mg/dL) 156 H POC Glucose (70 - 110 MG/DL) 75 58 L 213 H Calcium (8.0 - 10.5 mg/dL) 8.3 Phosphorus (2.5 - 4.9 MG/DL) 4.6 Magnesium (1.80 - 2.40 mg/dL) 1.89 Hematology WBC (4.5 - 11.0 x10 3/uL) 8.6 RBC (4.00 - 5.60 x10 6/uL) 3.08 L Hgb (12.5 - 16.9 g/dL) 8.6 L Hct (37.5 - 50.7 %) 26.7 L MCV (81.0 - 99.0 fL) 86.7 MCH (27.0 - 33.0 pg) 27.9 MCHC (33.0 - 37.0 g/dL) 32.2 L RDW (11.5 - 14.5 %) 13.8 Plt Count (150 - 400 x10 3/uL) 265 MPV (7.0 - 9.0 fL) 9.6 H Neut % (Auto) (56.0 - 77.0 %) 69.4 Lymph % (Auto) (14.0 - 32.0 %) 15.5 Boundary % (Auto) (4.8 - 9.0 %) 8.5 Eos % (Auto) (0.3 - 3.7 %) 5.5 H Baso % (Auto) (0.0 - 2.0 %) 0.4 Neut # (Auto) (2.0 - 7.6 x10 3/uL) 5.94 Lymph # (Auto) (1.0 - 3.8 x10 3/uL) 1.33 Boundary # (Auto) (0.1 - 0.8 x10 3/uL) 0.73 Eos # (Auto) (0.0 - 0.2 x10 3/uL) 0.47 H Baso # (Auto) (0.0 - 0.2 x10 3/uL) 0.03 Abs Immat Gran (auto) (0.00 - 0.03 0.06 H x10 3/uL) Add Manual Diff NO Immature Gran % (0.0 - 2.0 %) 0.7 Nucleated RBC % (0 - 0 %) 0.0 Nucleated RBCs # (Man) (0.0 - 0.1 0.00 x10 3/uL) Toxicology Random Vancomycin (mcg/mL) 15.7 09/10 09/09 0541 1911 Chemistry POC Glucose (70 - 110 MG/DL) 154 H 102 Recent Impressions: ULTRASOUND - US RETROPERITONEAL COM 09/10 1311 Report Impression - Status: SIGNED Entered: 09/10/2022 1503 IMPRESSION: No acute findings. Impression By: Hakeem Jacobo Laboratory Tests: 09/09 09/09 09/09 09/09 09/09 1606 1526 1403 1049 0524 Chemistry POC Glucose (70 - 110 MG/DL) 109 30 L 90 128 H Toxicology Random Vancomycin (mcg/mL) 15.4 09/09 09/08 09/08 0500 5 1828 Chemistry Sodium (134 - 147 mEq/L) 136 Potassium (3.4 - 5.0 mEq/L) 4.2 Chloride (100 - 108 mEq/L) 107 Carbon Dioxide (21 - 33 mEq/l) 22 Anion Gap (0 - 20) 11 BUN (7 - 18 mg/dL) 23 H Creatinine (0.6 - 1.3 mg/dL) 1.5 H Glomerular Filtr Rate (90 - 95) 53.6 L Glucose (70 - 110 mg/dL) 125 H POC Glucose (70 - 110 MG/DL) 106 Calcium (8.0 - 10.5 mg/dL) 8.2 Phosphorus (2.5 - 4.9 MG/DL) 4.0 Magnesium (1.80 - 2.40 mg/dL) 1.89 Iron (35 - 150 mcg/dL) 10 L TIBC (260 - 445 mcg/dL) 138 L % Saturation (14 - 34 %) 7.2 L Unsat Iron Binding (mcg/dL) 128 Ferritin (23.9 - 336.2 ng/mL) 700.5 H Lactate Dehydrogenase (87 - 241 IUnits/L) 193 Hematology WBC (4.5 - 11.0 x10 3/uL) 9.2 RBC (4.00 - 5.60 x10 6/uL) 3.01 L Hgb (12.5 - 16.9 g/dL) 8.5 L Hct (37.5 - 50.7 %) 25.9 L MCV (81.0 - 99.0 fL) 86.0 MCH (27.0 - 33.0 pg) 28.2 MCHC (33.0 - 37.0 g/dL) 32.8 L RDW (11.5 - 14.5 %) 13.8 Plt Count (150 - 400 x10 3/uL) 263 MPV (7.0 - 9.0 fL) 9.7 H Neut % (Auto) (56.0 - 77.0 %) 69.1 Lymph % (Auto) (14.0 - 32.0 %) 16.1 Boundary % (Auto) (4.8 - 9.0 %) 9.2 H Eos % (Auto) (0.3 - 3.7 %) 4.7 H Baso % (Auto) (0.0 - 2.0 %) 0.4 Neut # (Auto) (2.0 - 7.6 x10 3/uL) 6.38 Lymph # (Auto) (1.0 - 3.8 x10 3/uL) 1.49 Boundary # (Auto) (0.1 - 0.8 x10 3/uL) 0.85 H Eos # (Auto) (0.0 - 0.2 x10 3/uL) 0.43 H Baso # (Auto) (0.0 - 0.2 x10 3/uL) 0.04 Abs Immat Gran (auto) (0.00 - 0.03 x10 3/uL) 0. 05 H Add Manual Diff NO Immature Gran % (0.0 - 2.0 %) 0.5 Nucleated RBC % (0 - 0 %) 0.0 Nucleated RBCs # (Man) (0.0 - 0.1 x10 3/uL) 0.0 0 Retic Count (auto) (0.3 - 2.3 %) 1.3 Laboratory Tests: 09/08 09/08 09/08 09/08 09/08 1611 1318 1045 1033 0616 Chemistry POC Glucose (70 - 110 MG/DL) 120 H 101 99 101 Toxicology Random Vancomycin (mcg/mL) 15.8 09/08 09/07 09/07 0615 2238 2110 Chemistry Sodium (134 - 147 mEq/L) 135 Potassium (3.4 - 5.0 mEq/L) 4.6 Chloride (100 - 108 mEq/L) 107 Carbon Dioxide (21 - 33 mEq/l) 22 Anion Gap (0 - 20) 10 BUN (7 - 18 mg/dL) 22 H Creatinine (0.6 - 1.3 mg/dL) 1.4 H Glomerular Filtr Rate (90 - 95) 58.3 L Glucose (70 - 110 mg/dL) 100 POC Glucose (70 - 110 MG/DL) 135 H 127 H Calcium (8.0 - 10.5 mg/dL) 8.1 Magnesium (1.80 - 2.40 mg/dL) 1.58 L Total Creatine Kinase (46 - 171 Units/L) 22 L Albumin (3.4 - 5.0 g/dL) 1.30 L Prealbumin (16.0 - 40.0 mg/dL) < 5.0 L Hematology WBC (4.5 - 11.0 x10 3/uL) 9.1 RBC (4.00 - 5.60 x10 6/uL) 3.05 L Hgb (12.5 - 16.9 g/dL) 8.5 L Hct (37.5 - 50.7 %) 26.2 L MCV (81.0 - 99.0 fL) 85.9 MCH (27.0 - 33.0 pg) 27.9 MCHC (33.0 - 37.0 g/dL) 32.4 L RDW (11.5 - 14.5 %) 13.5 Plt Count (150 - 400 x10 3/uL) 231 MPV (7.0 - 9.0 fL) 9.6 H Neut % (Auto) (56.0 - 77.0 %) 73.3 Lymph % (Auto) (14.0 - 32.0 %) 13.7 L Boundary % (Auto) (4.8 - 9.0 %) 7.2 Eos % (Auto) (0.3 - 3.7 %) 4.8 H Baso % (Auto) (0.0 - 2.0 %) 0.3 Neut # (Auto) (2.0 - 7.6 x10 3/uL) 6.64 Lymph # (Auto) (1.0 - 3.8 x10 3/uL) 1.24 Boundary # (Auto) (0.1 - 0.8 x10 3/uL) 0.65 Eos # (Auto) (0.0 - 0.2 x10 3/uL) 0.43 H Baso # (Auto) (0.0 - 0.2 x10 3/uL) 0.03 Abs Immat Gran (auto) (0.00 - 0.03 x10 3/uL) 0 .06 H Add Manual Diff NO Immature Gran % (0.0 - 2.0 %) 0.7 Nucleated RBC % (0 - 0 %) 0.0 Nucleated RBCs # (Man) (0.0 - 0.1 x10 3/uL) 0.0 0 Laboratory Tests: 09/07 09/07 09/07 09/07 09/07 1554 1137 1127 0618 0510 Chemistry Creatinine (0.6 - 1.3 mg/dL) 1.4 H POC Glucose (70 - 110 MG/DL) 112 H 51 L 42 L 13 5 H Hematology Hgb (12.5 - 16.9 g/dL) 8.4 L Hct (37.5 - 50.7 %) 26.2 L Toxicology Random Vancomycin (mcg/mL) 14.7 09/06 09/06 2226 2108 Chemistry POC Glucose (70 - 110 MG/DL) 192 H 211 H Laboratory Tests: 09/06 09/06 09/06 09/06 09/06 1553 1547 1051 0538 0536 Chemistry Creatinine (0.6 - 1.3 mg/dL) 1.4 H POC Glucose (70 - 110 MG/DL) 119 H 92 124 H Hematology Hgb (12.5 - 16.9 g/dL) 8.6 L Hct (37.5 - 50.7 %) 26.1 L Toxicology Vancomycin Trough (10.0 - 20.0 mcg/mL) 18.9 09/05 1910 Chemistry POC Glucose (70 - 110 MG/DL) 117 H Laboratory Tests: 09/05 09/05 09/04 09/04 09/04 1149 0615 2042 1630 1557 Chemistry Sodium (134 - 147 mEq/L) 134 Potassium (3.4 - 5.0 mEq/L) 5.0 Chloride (100 - 108 mEq/L) 109 H Carbon Dioxide (21 - 33 mEq/l) 21 Anion Gap (0 - 20) 9 BUN (7 - 18 mg/dL) 24 H Creatinine (0.6 - 1.3 mg/dL) 1.3 Glomerular Filtr Rate (90 - 95) 63.7 L Glucose (70 - 110 mg/dL) 75 POC Glucose (70 - 110 MG/DL) 74 103 128 H Calcium (8.0 - 10.5 mg/dL) 7.9 L Hematology Hgb (12.5 - 16.9 g/dL) 7.1 L Hct (37.5 - 50.7 %) 22.7 L Toxicology Vancomycin Trough (10.0 - 20.0 mcg/mL) 12.8 Microbiology: Date/Time Procedure - Status Source Growth 09/04 1739 Occult Blood - COMP STOOL Recent Impressions: RADIOLOGY - XR ABDOMEN 1V (KUB) 09/04 1648 Report Impression - Status: SIGNED Entered: 09/04/20221756 IMPRESSION: Benign appearance of the abdomen. Impression By: [email or web address] - Hakeem Soto ULTRASOUND - DUP VEIN UNI/LTD 09/05 1146 Report Impression - Status: SIGNED Entered: 09/05/2022 1333 IMPRESSION: 1. No evidence of deep vein thrombosis. 2. Complex heterogeneous hypoechoic fluid collec tion in the left calf region measuring 8.4 x 2.8 x 2.5 cm; there is no internal vascularity or peripheral hyperemia. May represe nt a hematoma. Impression By: [email or web address] - Mert Ga M.D. RADIOLOGY - XR CHEST 1 V 09/05 1432 Report Impression - Status: SIGNED Entered: 09/05/2022 1515 IMPRESSION: Minimal bibasilar pulmonary opacities Impression By: [email or web address] - Hakeem Perez Laboratory Tests: 09/04 09/04 09/04 09/04 09/04 1630 1557 1100 1031 0816 Chemistry POC Glucose (70 - 110 MG/DL) 128 H 107 99 Hematology Hgb (12.5 - 16.9 g/dL) 7.7 L Hct (37.5 - 50.7 %) 23.7 L Toxicology Vancomycin Trough (10.0 - 20.0 mcg/mL) 12.8 09/04 09/04 09/03 09/03 0721 0540 1944 1836 Chemistry POC Glucose (70 - 110 MG/DL) 87 124 H Hematology Hgb (12.5 - 16.9 g/dL) 6.8 L Hct (37.5 - 50.7 %) 21.2 L Toxicology Vancomycin Peak (30 - 40 MCG/ML) 27.4 L Microbiology: Date/Time Procedure - Status Source Growth 09/04 1037 Occult Blood - COLB STOOL 1.Diabetes mellitus type 2 uncontrolled complica tions. 2. 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 4. Sepsis 5. Prostate abscess. 6. Anemia Blood sugar 109-130 mg/dL.H/H 8.11/17. Adjust insulin dose. PT and OT. Electronically Signed by Braxton Chapin MD on at 1724 RPT #:[id number] END OF REPORT 2022-09-11 16:34:00-00:00 [facility] ([facility]) Pharmacy Prog.Note-Vancomycin REPORT#:[id number] REPORT STATUS: Signed DATE:09/11/22 TIME: 163 PATIENT: KARMA ROWLAND UNIT #: [id number] ROOM/BED: [place] [address] : 63 AGE: 56 SEX: M ATTEND: Fredy Vences MD ADM AUTHOR: Joselyn Stock [facility] * ALL edits or amendments must be made on the [employer] document * See Addendum Vancomycin Vancomycin Medication Therapy Goal: Random 15-20 mcg/mL Indication for treatment: OM and MRSA Bacteremia VS and I/O: Vital Signs Date Temp Pulse Resp B/P B/P Mean Pulse Ox FiO2 09/08-09/11 97.3-98.2 70-91 15-18 133-168/64-83 87.1-110.6 94-99 72 hours ending at 0700 09/11 0700 09/10 1900 09/10 0700 09/09 1900 09/08 0700 1900 Intake 715 250.00 Total Output 1000 850 Total Balance -1000 715 -850 250.00 Intake, IV 250.00 Intake, 715 Oral Number 1 Bowel Movements Number 0 0 Incontinen t Voids Number 0 0 Voids Output, 1000 850 Urine 72 Hour I O Total 09/11 0700 09/10 0700 09/09 0700 Intake Total 715 250.00 Output Total 1000 850 Balance -1000 715 -600.00 Labs: Laboratory Tests: 09/11 09/10 09/09 1445 1430 1403 Toxicology Random Vancomycin (mcg/mL) 18.3 15.7 15.4 Laboratory Test : 09/11 09/10 09/09 0445 0545 0500 Chemistry BUN (7 - 18 mg/dL) 26 H 25 H 23 H Creatinine (0.6 - 1.3 mg/dL) 2.0 H 1.9 H 1.5 H Hematology WBC (4.5 - 11.0 x10 3/uL) 7.9 8.6 9.2 Treatment plan: consult Regimen: 56yo male with PMH of T2DM and HTN who was admit [facility] with AMS and right-sided foot infection. According to him, he noticed a blister on his right foot around 3 days prior to presentation on 08/18. His foot g ot progressively more swollen and erythema extended proximally to his lateral foot and ankle. Patient's BCx had persistent BCx for MRSA 08/18- 08/22. He underwent a debridement of his foot on 08/19 and Cx grew MRSA. Pt was started on Vancomycin and clindamycin on 08/18. Patient is s/p ICU stay with merrem/daptomycin. ID adjusted regimen to cefepime/ vancomycin. Pharmacy consulted to dose vancomyci n. Consulting provider: Merry Wolff Indication: Osteomyelitis of the Talus, Calcaneu s, and Navicular Bone; MRSA Bacteremia; Prostatic Abscess Goal Random: 15-20 mcg/mL Concomitant Abx: Cefepime Duration of Therapy: 09/24/22 Assessment: Labs/Vitals * Afebrile/24hrs, WBC 7.9, BUN/SCr 26/2, UOP/24h rs -1L Micro * MRSA nares (09/03) positive * WCx (08/26) Citrobacter Farmeri (R Ampicillin, Cefazolin), Enterococcus Raffinosus (R Tetracycline), MRSA Imaging * CT Abd/Pelvis (08/18) possible abscess * RLE MRI (08/21) osteomyelitis of the talus, ca lcaneus, navicular bone Level * Random (09/07 @0510) 14.7 mcg/mL; s/p Vanc 1gm IV x1 09/05 @2009; Calculated half-life = 35.8hrs * Random (09/08 @1045) 15.8 mcg/mL; s/p Vanc 750 mg IV x1 09/07 @1102 * Given patient's renal func tion has been elevated, yet stable, Vancomycin 500mg IV q24h was initiated * Random (09/09 @1403) 15.4 mcg/mL; s/p Vanc 500 mg IV x1 09/08 @1403 * Random (09/10 @1430) 15.7 mcg/mL; s/p Vanc 500 mg IV x1 09/09 @1553 * Random (09/11 @1445) 18.3 mcg/mL; s/p Vanc 500 mg IV x1 09/07 @1627 Plan: * Patient's renal function worsened today and va nc is accumulating, therefore will continue to dose by random level * Draw random level 09/11 @2100 to assess cleara nce at 1642 Addendum 1: 09/11/222306 by Beti Willoughby h * level drawn @2130 ( 29 hrs after prev dose); resulted 16.7 mcg/mL (therapeutic ) * will give vancomycin 500 mg IV once, plan for random 30hr level 09/13 0500 * pharmacy will continue to follow and adjust as appropriate at 2307 RPT #:[id number] END OF REPORT 2022-09-11 11:30:00-00:00 [facility] Hospitalist Progress Note REPORT#:[id number] REPORT STATUS: Signed DATE:09/11/22 TIME: 1130 PATIENT: KARMA ROWLAND UNIT #: [id number] ROOM/BED: [place] [id number] : 63 AGE: 56 SEX: M ATTEND: Fredy Vences MD ADM AUTHOR: Wilbert Ramires MD * ALL edits or amendments must be made on the [employer]/computer document * Subjective Chief complaint: admitted to rehab. participating with therapy Review of Systems All systems rev neg: except as noted Objective General VS/I O: Vital Signs: Date Time Temp Pulse Resp B/P B/P Pulse O2 O2 F low FiO2 Mean Ox Delivery Rate 09/11 0640 97.7 81 18 137/71 92.8 96 Nasal cannula 09/10 2314 97.5 77 16 152/78 102.5 96 09/10 1855 97.5 70 17 153/79 103.6 97 Room air 09/10 1627 97.9 75 18 147/78 100.9 99 Room air 24 hour I O ending at 0700: 09/11 0700 09/10 1900 Intake Total Output Total 1000 Balance -1000 Number 0 Incontinent Voids Number Voids 0 Output, Urine 1000 PATIENT WEIGHT: Weight (lb): 165 Weight (oz): 5.55 Weight (kg): 75.000 Medications: Active Meds + DC'd Last 24 Hrs Vancomycin HCl (VANCOMYCIN HCL) 500 MG ONCE ONE IV (DC) Sodium Chloride (SODIUM CHLORIDE 0.9% 100 ML) 1 00 ML Cefepime HCl (MAXIPIME) 1 GM Q8H IV Sodium Chloride (SODIUM CHLORIDE) 10 ML Gabapentin (NEURONTIN) 100 MG Q8HR PO Hydromorphone HCl (DILAUDID) 0.5 MG Q12H PRN PRN IV Oxycodone/Acetaminophen (PERCOCET 5/325MG TAB) 2 TAB Q4H PRN PRN PO Ferric Sodium Gluconate Complex (FERRLECIT) 125 MG DAILY IV Sodium Chloride (SODIUM CHLORIDE 0.9%) 100 ML Folic Acid (FOLIC ACID) 2 MG DAILY PO Multivitamins (TAB-A-MOHAN) 1 TAB DAILY PO Carvedilol (COREG) 12.5 MG C BK DIN PO Insulin Glargine (Semglee) 5 UNIT BEDTIME SUBQ Furosemide (LASIX 20MG INJ) 20 MG BLOOD-DOSE BET WEEN IV (CKD) Sodium Chloride (SODIUM CHLORIDE) 10 ML ASDIR IV Furosemide (LASIX) 20 MG DAILY PO Pantoprazole Sodium (PROTONIX) 40 MG Q12HR IV Polyethylene Glycol (MIRALAX) 17 GM DAILY PO Sennosides (Senna Lax 8.6 MG TABLET) 8.6 MG CODY LY PO Sodium Chloride (SODIUM CHLORIDE) 10 ML ASDIR NV N IV Amitriptyline HCl (ELAVIL) 25 MG BEDTIME PO Zinc Oxide (ZINC OXIDE 30 GM OINTMENT) 1 APPLIC DAILY TOPICAL Sterile Water (WATER FOR IRRIGATION) DRESSING CH GELACIO ASDIR PRN IRR Insulin Human Lispro (HUMALOG) 0 AC HS SUBQ Dextrose/Water (DEXTROSE 10% IN WATER) 125 ML DIR PRN IV (CKD) Dextrose/Water (DEXTROSE 10% IN WATER) 250 ML DIR PRN IV (CKD) Glucagon (GLUCAGON) 1 MG ASDIR PRN IM Lidocaine (LIDODERM) 1 PATCH DAILY TOPICAL Insulin Human Lispro (HUMALOG) 5 UNIT AC SUBQ Miscellaneous Information (VANCOMYCIN PHARMACY T O DOSE) 1 EACH ASDIR IV (CKD) Heparin Sodium (HEPARIN 5000 UNITS/ML) 5,000 UNI T Q8HR SUBQ Acetaminophen (TYLENOL) 650 MG Q6H PRN PRN PO Bisacodyl (DULCOLAX) 10 MG DAILY PRN PRN RECTAL Docusate Sodium (COLACE) 100 MG Q12H PRN PRN PO Hydralazine HCl (APRESOLINE) 10 MG Q6H PRN PRN I V Ondansetron HCl (ZOFRAN) 4 MG Q6H PRN PRN IV Physical Exam General appearance: alert, awake, oriented Head/Eyes: atraumatic, clear cornea Neck: full range of motion, non-tender Cardiovascular: normal capillary refill, normal heart sounds, regular rate rhythm Respiratory: aerating well, clear to auscultatio n Abdomen: non-tender, normal bowel sounds Genitourinary: no flank pain Extremities: moves all, normal capillary refill Musculoskeletal: normal inspection, painless ran ge of motion 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 X 3, 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 Considered stroke alert: no Skin: dry, intact Psychiatry: normal affect, normal judgment/insig ht Diagnosis, Assessment Plan Consultants: cardiology, endocrinology, hospital ist, infectious disease, podiatry Free Text DxA P Notes Free text DxA P notes: Gangrene of right foot s/p Below- knee amputatio n Prostate abscess MRSA bacteremia Hx of Diabetes, Diabetic neuropathy HTN PLANS: Continue with ABx as dierected- currently on Dap tomycin and Cefepime Continue with PT/OT per primary Fall precautions Nutritional support pain control fall precautions bowel regimen Wound care as directed Hepain PPX Continue with supportive / care follow hgb closely and transfuse as needed blood sugars dipping down - endo following labs noted. watch Hgb IV iron BP improving. cntinue to adjust BP meds dependin g on trends Electronically Signed by Wilbert Ramires MD on at 1131 RPT #:[id number] END OF REPORT 2022-09-11 10:41:00-00:[address] [facility] ([facility] Rehab Progress Note REPORT#:[id number] REPORT STATUS: Signed DATE:09/11/22 TIME: 1041 PATIENT: KARMA ROWLAND UNIT #: [id number] ROOM/BED: [place] [id number] : 63 AGE: 56 SEX: M ATTEND: Fredy Vences MD ADM AUTHOR: Mj Vences MD * ALL edits or amendments must be made on the [employer]/computer document * Subjective Chief complaint: Rehab follow-up Patient doing well, sitting up in wheelchair Decrease edema of LLE + BM Eating 75-100% at bedside Denies MCBRIDE/N/V/D/CP 14 systems reviewed and neg. except that above. History of present illness: 56 yo HAM with long h/o DM, and HTN who was admitted for fever, flulike symptoms and altered mental status on 08/18. He was doing well until about 3 days prior to admission when he noted blister to have formed o n the dorsum of his foot. His foot started progressively getting more swollen and the blisters started enlarging and extending to his lateral f oot and ankle. He started feeling weak and nauseated. He was noted to have altered mentation and was brought to our ER. He was noted to be in DKA with Blood sugars grea ter than 600. He was seen by podiatry and surgery for BLE wounds and infectio n. He was treated in ICU for sepsis and DKA. He underwent incisional and excisional debridement of right foot and right ankle by podiatry. Patient also found to have prostate abscess underwent transrectal ultrasound aspiration of a bscess and transurethral resection of prostate and unroofing of abscess b y urology Dr. Bass. Endocrinology treated the DKA and blood sugars m uch improved. Patient's right foot was not salvageable and patient und erwent right BKA by Dr. LEROY on 08/28. Patient blood cultures showe d MRSA. Patient continued on antibiotics as per ID. MRI of the pelvis and foot completed. Patient r equired multiple PRBCs for anemia. Patient was found to have a possible small hematoma of the left calf on ultrasound. He complains of pain and swelling of the left ankle. Patient hemodynamically stable and plans are to be transferred to stepdown unit. He is on heparin subcu for VTE. Af ter surgery he is now being mobilized by PT and OT. He is wearing a [employer]or-[employer] orthotic for right knee /BKA protection. Prior to admission the patient was independent living in a single-story house with his spouse with a few steps up to front and back doo r. 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 is at bedside. Patient denies nausea, vomiting, fever, chills, chest pain, shortness of breath with diz ziness. He is requiring IV Dilaudid for pain control. Mental status back to baseline. Pt is progressing slowly with therapy d/t weakness and pain, self care deficit, decreased endurance and balance, and decreased functional mobility. Pt requiring acute inpt rehab for multidiscipli nary team of nursing, therapy, and physicians. Pt is willing and able to partici- kathleen in 3 hr/day inpt rehab to d/c home safely. Pt' s prior level of function was independent. Objective General VS: Vital Signs: Date Time Temp Pulse Resp B/P B/P Pulse O2 O2 F low FiO2 Mean Ox Delivery Rate 09/11 1531 98.1 74 18 145/76 99.3 96 Room air 09/11 1144 83 162/79 106.3 09/11 0640 97.7 81 18 137/71 92.8 96 Nasal cannula 09/10 2314 97.5 77 16 152/78 102.5 96 09/10 1855 97.5 70 17 153/79 103.6 97 Room air PATIENT WEIGHT: Weight (lb): 165 Weight (oz): 5.55 Weight (kg): 75.000 Medications: Active Meds + DC'd Last 24 Hrs Cefepime HCl (MAXIPIME) 1 GM Q8H IV Sodium Chloride (SODIUM CHLORIDE) 10 ML Gabapentin (NEURONTIN) 100 MG Q8HR PO Hydromorphone HCl (DILAUDID) 0.5 MG Q12H PRN PRN IV Oxycodone/Acetaminophen (PERCOCET 5/325MG TAB) 2 TAB Q4H PRN PRN PO Ferric Sodium Gluconate Complex (FERRLECIT) 125 MG DAILY IV Sodium Chloride (SODIUM CHLORIDE 0.9%) 100 ML Folic Acid (FOLIC ACID) 2 MG DAILY PO Multivitamins (TAB-A-MOHAN) 1 TAB DAILY PO Carvedilol (COREG) 12.5 MG C BK DIN PO Insulin Glargine (Semglee) 5 UNIT BEDTIME SUBQ Furosemide (LASIX 20MG INJ) 20 MG BLOOD-DOSE BET WEEN IV (CKD) Sodium Chloride (SODIUM CHLORIDE) 10 ML ASDIR IV Furosemide (LASIX) 20 MG DAILY PO Pantoprazole Sodium (PROTONIX) 40 MG Q12HR IV Polyethylene Glycol (MIRALAX) 17 GM DAILY PO Sennosides (Senna Lax 8.6 MG TABLET) 8.6 MG MADALYN Y PO Sodium Chloride (SODIUM CHLORIDE) 10 ML ASDIR NV N IV Amitriptyline HCl (ELAVIL) 25 MG BEDTIME PO Zinc Oxide (ZINC OXIDE 30 GM OINTMENT) 1 APPLIC DAILY TOPICAL Sterile Water (WATER FOR IRRIGATION) DRESSING CH GELACOI ASDIR PRN IRR Insulin Human Lispro (HUMALOG) 0 AC HS SUBQ Dextrose/Water (DEXTROSE 10% IN WATER) 125 ML DIR PRN IV (CKD) Dextrose/Water (DEXTROSE 10% IN WATER) 250 ML DIR PRN IV (CKD) Glucagon (GLUCAGON) 1 MG ASDIR PRN IM Lidocaine (LIDODERM) 1 PATCH DAILY TOPICAL Insulin Human Lispro (HUMALOG) 5 UNIT AC SUBQ Miscellaneous Information (VANCOMYCIN PHARMACY T O DOSE) 1 EACH ASDIR IV (CKD) Heparin Sodium (HEPARIN 5000 UNITS/ML) 5,000 UNI T Q8HR SUBQ Acetaminophen (TYLENOL) 650 MG Q6H PRN PRN PO Bisacodyl (DULCOLAX) 10 MG DAILY PRN PRN RECTAL Docusate Sodium (COLACE) 100 MG Q12H PRN PRN PO Hydralazine HCl (APRESOLINE) 10 MG Q6H PRN PRN I V Ondansetron HCl (ZOFRAN) 4 MG Q6H PRN PRN IV Physical Exam General appearance: alert, awake, no acute distr ess Psych: alert, normal affect, oriented x 3 HEENT: anicteric, sclera clear Neck: supple, no JVD Cardiovascular: S1/S2, no murmur Respiratory: aerating well, clear bilaterally Abdomen: bowel sounds present, non-distended, so ft, non-tender Skin: no rash, R BKA HEALING. 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 3, CNII-XII intact Results Findings/Data: Laboratory Tests: 09/11 09/11 09/11 09/11 09/11 1532 1445 1114 0541 0445 Chemistry Sodium (134 - 147 mEq/L) 134 Potassium (3.4 - 5.0 mEq/L) 4.3 Chloride (100 - 108 mEq/L) 105 Carbon Dioxide (21 - 33 mEq/l) 22 Anion Gap (0 - 20) 12 BUN (7 - 18 mg/dL) 26 H Creatinine (0.6 - 1.3 mg/dL) 2.0 H Glomerular Filtr Rate (90 - 95) 38.0 L Glucose (70 - 110 mg/dL) 109 POC Glucose (70 - 110 MG/DL) 93 109 127 H Calcium (8.0 - 10.5 mg/dL) 8.3 Phosphorus (2.5 - 4.9 MG/DL) 4.7 Magnesium (1.80 - 2.40 mg/dL) 1.90 Hematology WBC (4.5 - 11.0 x10 3/uL) 7.9 RBC (4.00 - 5.60 x10 6/uL) 2.94 L Hgb (12.5 - 16.9 g/dL) 8.3 L Hct (37.5 - 50.7 %) 25.8 L MCV (81.0 - 99.0 fL) 87.8 MCH (27.0 - 33.0 pg) 28.2 MCHC (33.0 - 37.0 g/dL) 32.2 L RDW (11.5 - 14.5 %) 13.7 Plt Count (150 - 400 x10 3/uL) 269 MPV (7.0 - 9.0 fL) 9.8 H Neut % (Auto) (56.0 - 77.0 %) 67.9 Lymph % (Auto) (14.0 - 32.0 %) 16.1 Boundary % (Auto) (4.8 - 9.0 %) 9.1 H Eos % (Auto) (0.3 - 3.7 %) 5.6 H Baso % (Auto) (0.0 - 2.0 %) 0.5 Neut # (Auto) (2.0 - 7.6 x10 3/uL) 5.35 Lymph # (Auto) (1.0 - 3.8 x10 3/uL) 1.27 Boundary # (Auto) (0.1 - 0.8 x10 3/uL) 0.72 Eos # (Auto) (0.0 - 0.2 x10 3/uL) 0.44 H Baso # (Auto) (0.0 - 0.2 x10 3/uL) 0.04 Abs Immat Gran (auto) (0.00 - 0.03 0.06 H x10 3/uL) Add Manual Diff NO Immature Gran % (0.0 - 2.0 %) 0.8 Nucleated RBC % (0 - 0 %) 0.0 Nucleated RBCs # (Man) (0.0 - 0.1 0.00 x10 3/uL) Toxicology Random Vancomycin (mcg/mL) 18.3 09/10 1851 Chemistry POC Glucose (70 - 110 MG/DL) 97 Radiology data: Recent Impressions: ULTRASOUND - DUP VEIN UNI/LTD 09/05 1146 Report Impression - Status: SIGNED Entered: 09/05/2022 1333 IMPRESSION: 1. No evidence of deep vein thrombosis. 2. Complex heterogeneous hypoechoic fluid collec tion in the left calf region measuring 8.4 x 2.8 x 2.5 cm; there is no internal vascularity or peripheral hyperemia. May represe nt a hematoma. Impression By: [email or web address] - Mert Ga M.D. RADIOLOGY - XR CHEST 1 V 09/05 1432 Report Impression - Status: SIGNED Entered: 09/05/2022 1515 IMPRESSION: Minimal bibasilar pulmonary opacities Impression By: Hakeem Jacobo ULTRASOUND - US RETROPERITONEAL COM 09/10 1311 Report Impression - Status: SIGNED Entered: 09/10/2022 1503 IMPRESSION: No acute findings. Impression By: Hakeem Jacobo Diagnosis, Assessment Plan Problem List/A P: 1. Gangrene of right foot 2. 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 MRSA bacteremia 4. Cellulitis of foot, right 5. DKA (diabetic ketoacidosis) 6. Hyperglycemia 7. ERIKA (acute kidney injury) 8. Postoperative pain 9. Acute anemia 10. Prostate abscess 11. 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 Leroy Significant impairment in self-care, ADLs and fu nctional mobility Impaired mobility and gait Acute postoperative pain right BKA Diabetic polyneuropathy DKA, DM 2, poorly controlled, A1c greater than 1 4 PAD MRSA bacteremia/sepsis-treated on acute ERIKA Severe hyponatremia-resolved HTN Acute on chronic anemia requiring multiple trans fusions, possible GI bleed Left calf hematoma Edema and clinical arthritis left ankle Early decubitus to left heel/DTI dorsal left mid foot Prostatic abscess 08/26: S/p transrectal ultrasound aspiration of ab scess and transurethral resection of prostate and unroofing of abscess Echo: EF 55-59%, grade 1 diastolic dysfunction 09/02: JIMENA negative for vegetation MRSA OF NARES 09/08:s/p EGD and colonoscopy. EGD showed mild ga stritis. Colonoscopy showed rectal polyp that was resected by snare. Plan: -PLOF: Independent with transfers and gait -Amputee rehab program -Continue PT and OT -15/12 rehabilitation nursing care. -Case management for safe discharge planning. -Decubitus prevention -Early decubitus to left heel/DTI dorsal left mi dfoot-zinc oxide to the foot, foam, offloading, podiatry managing -DVT prophylaxis-subcutaneous heparin -Strict fall and safety precautions -Work on bed mobility, transfer training, ADLs, pre-gait and gait exercises -Increase endurance and strength -Monitor pain with therapies -OOB to chair -Monitor p.o. intake and nut rition, albumin 1.3, prealbumin less than 5, dietary consultation, protein supplements to promote hea ling -Diabetes-A1c 14, tight glycemia control- endocr ine on board, insulin adjustments -Endocrinology, ID, podiatry, cardiology, IM con sulted -Pain management adjusting pain medications -Anemia, patient required multiple units of PRBC s on acute, FOBT positive -IV Protonix-consult GI-seri al H H-no evidence of gross bleeding-discussed with Dr. Trinidad -Constipation-abdominal mohuogbo-XQR-dywebg-CW S enokot and MiraLAX, DSP -Right FOA-wplmucf-ddnuqhar resolved, dr martinez changed uoyap-tljgmtz-pdfflmur NESTOR-TECH -MRSA OF NARES on Bactroban protocol -LLE edema-venous Doppler wi th complex heterogeneous hypoechoic fluid collection in the left calf region measuring 8.4, 2.8, 2.5 cm suggestive of hematoma. On low-dose Lasix. Oralia wrap LLE -LE edema could be related to hypoalbuminemia le ading to third spacing-edema improving -Generalized edema-some shor tness of breath and abdominal distention-cardiology gave a dose of IV Lasix-monitor urine output, da jaz weights-SOB resolved -09/05-venous Doppler of LLE-negative for DVT-Oralia wrap dressing and elevation -Chest x-ray with minimal basilar pulmonary opac ities -Anemia-hemoglobin 8.3, transfused 2 units of NV BC on 09/05 -09/08: s/p EGD and colonoscopy. EGD showed mild gastritis. Colonoscopy showed rectal polyp that was resected by snare. Anemia likely secondary to chronic kidney disease. Consult renal. -Chemistries good, creatinine 2.0, magnesium 1.9 -Renal ultrasound negative -09/11/2022 laboratory this m senthiling showed sodium 134, potassium 4.3, CO2 22, BUN 26, creatinine 2 up from 1.9, hopefully creatini ne is plateauing, renal ultrasound negative-as per renal -Continue antibiotics per ID -on cefepime and vancomycin until 09/24 for treatment of prostatic abscess -Advance therapies as tolerated-discusse d treatment plan with patient and -Patient progressing with therapies, requires mu ltiple rest breaks. Some back pain improved with pain medications. Mild dizzin ess and blood pressure 162/79 with no increase in symptoms during sessions. David cavazos making steady progress towards goals. Progress: PT PARTCIPATED IN 90' OF SKILLED PT TO DAY. PT EDUCATED ON RLE NWB STATUS, POSTURE, AND SAFETY PRECAUTIONS TO INCREASE AWARENESS THROUGHOUT SESSION. PT PROPELLED W/C WITH B/L UE, SPV, 160 FEET, 40 FEET, 220, 100 FEET, and 60 FEET. PT PERFORMED SEATED W/C PUSHUPS (5 REPS X2), HIP A DD WITH BALL (10 REPS X2, 3"), AND HIP ABD (10 REPS X2, 3" WITH GREEN THERABAND). PM R Please see team note. Plan and goals discussed with the patient. I agree with the teams finding ELOS- [09/19] DC-Home with -Home health DME-bedside commode, sliding board, wheelchair, Total time 33 minutes greater than 50% of the ti me spent examining patient, discussing with patient and about medical i ssues, amputee rehab plan of care, goals, therapies, progress, labs, medicati ons. EMR and MAR is reviewed. All questions answered Orders: Procedure Date/time Status MRSA SCREEN SURV 09/15 0500 Active MRSA SCREEN SURV 09/13 0500 Active Oralia Bandage: Apply 09/11 1304 Active PT WHEELCHAIR TRAINING 09/11 UNK Complete PT EXERCISE 15 MIN 09/11 UNK Complete OT FUNCTIONAL TRN 15 MIN 09/11 UNK Complete OT EXERCISE 15MIN 09/11 UNK Complete OT ADL 09/11 UNK Complete Consultants: cardiology, endocrinology, hospital ist, infectious disease, podiatry Rehab attestation: Face to face exam completed. Treatment plan disc ussed with patient. Meets continued stay criteria. Agree with interdiscipl inary treatment plan. at 1731 RPT #:[id number] END OF REPORT 2022-09-11 09:29:00-00:00 [facility] ([facility]) Cardiology Progress Note REPORT#:[id number] REPORT STATUS: Signed DATE:09/11/22 TIME: 928 PATIENT: KARMA ROWLAND UNIT #: [id number] ROOM/BED: [place] [address] : 63 AGE: 56 SEX: M ATTEND: Fredy Vences MD ADM AUTHOR: Rohit Benitez CLAY MILLER * ALL edits or amendments must be made on the [employer]/computer document * Rohit Benitez 09/11/22 0929: Subjective Chief complaint: weakness Free Text Subj Notes Free Text Subj Notes: Patient seen and evaluated. Overall doing well, no cardiac complaint. Improvement in leg swelling. Objective General VS/I O: 24 hour I O ending at 0700: 09/11 0700 09/10 1900 Intake Total Output Total 1000 Balance -1000 Number 0 Incontinent Voids Number Voids 0 Output, Urine 1000 Vital Signs: Date Time Temp Pulse Resp B/P B/P Pulse O2 O2 F low FiO2 Mean Ox Delivery Rate 09/11 0640 97.7 81 18 137/71 92.8 96 Nasal cannula 09/10 2314 97.5 77 16 152/78 102.5 96 09/10 1855 97.5 70 17 153/79 103.6 97 Room air 09/10 1627 97.9 75 18 147/78 100.9 99 Room air PATIENT WEIGHT: Weight (lb): 165 Weight (oz): 5.55 Weight (kg): 75.000 Medications: Active Meds + DC'd Last 24 Hrs Vancomycin HCl (VANCOMYCIN HCL) 500 MG ONCE ONE IV (DC) Sodium Chloride (SODIUM CHLORIDE 0.9% 100 ML) 1 00 ML Cefepime HCl (MAXIPIME) 1 GM Q8H IV Sodium Chloride (SODIUM CHLORIDE) 10 ML Gabapentin (NEURONTIN) 100 MG Q8HR PO Hydromorphone HCl (DILAUDID) 0.5 MG Q12H PRN PRN IV Oxycodone/Acetaminophen (PERCOCET 5/325MG TAB) 2 TAB Q4H PRN PRN PO Ferric Sodium Gluconate Complex (FERRLECIT) 125 MG DAILY IV Sodium Chloride (SODIUM CHLORIDE 0.9%) 100 ML Folic Acid (FOLIC ACID) 2 MG DAILY PO Multivitamins (TAB-A-MOHAN) 1 TAB DAILY PO Carvedilol (COREG) 12.5 MG C BK DIN PO Insulin Glargine (Semglee) 5 UNIT BEDTIME SUBQ Furosemide (LASIX 20MG INJ) 20 MG BLOOD-DOSE BET WEEN IV (CKD) Sodium Chloride (SODIUM CHLORIDE) 10 ML ASDIR IV Furosemide (LASIX) 20 MG DAILY PO Pantoprazole Sodium (PROTONIX) 40 MG Q12HR IV Polyethylene Glycol (MIRALAX) 17 GM DAILY PO Sennosides (Senna Lax 8.6 MG TABLET) 8.6 MG MADALYN Y PO Sodium Chloride (SODIUM CHLORIDE) 10 ML ASDIR NV N IV Amitriptyline HCl (ELAVIL) 25 MG BEDTIME PO Zinc Oxide (ZINC OXIDE 30 GM OINTMENT) 1 APPLIC DAILY TOPICAL Sterile Water (WATER FOR IRRIGATION) DRESSING CH GELACIO ASDIR PRN IRR Insulin Human Lispro (HUMALOG) 0 AC HS SUBQ Dextrose/Water (DEXTROSE 10% IN WATER) 125 ML DIR PRN IV (CKD) Dextrose/Water (DEXTROSE 10% IN WATER) 250 ML DIR PRN IV (CKD) Glucagon (GLUCAGON) 1 MG ASDIR PRN IM Lidocaine (LIDODERM) 1 PATCH DAILY TOPICAL Insulin Human Lispro (HUMALOG) 5 UNIT AC SUBQ Miscellaneous Information (VANCOMYCIN PHARMACY T O DOSE) 1 EACH ASDIR IV (CKD) Heparin Sodium (HEPARIN 5000 UNITS/ML) 5,000 UNI T Q8HR SUBQ Acetaminophen (TYLENOL) 650 MG Q6H PRN PRN PO Bisacodyl (DULCOLAX) 10 MG DAILY PRN PRN RECTAL Docusate Sodium (COLACE) 100 MG Q12H PRN PRN PO Hydralazine HCl (APRESOLINE) 10 MG Q6H PRN PRN I V Ondansetron HCl (ZOFRAN) 4 MG Q6H PRN PRN IV Physical Exam General appearance: alert, awake, oriented Neck: no bruit/NL carotids, no JVD Cardiovascular: CV assessment: regular rate and rhythm, no ecto py, no gallop Respiratory: clear to auscultation, no distress Abdomen: soft, non-tender Lower extremity: LE assessment: edema, normal temperature 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 X 3 Considered stroke alert: no Wound/incision: Location: right bka Psychiatry: normal affect, normal judgment/insig ht, normal mood Results Findings/Data: Laboratory Tests 09/11 09/11 09/10 09/10 09/10 0541 0445 1851 1715 1625 Chemistry Sodium (134 - 147 mEq/L) 134 Potassium (3.4 - 5.0 mEq/L) 4.3 Chloride (100 - 108 mEq/L) 105 Carbon Dioxide (21 - 33 mEq/l) 22 Anion Gap (0 - 20) 12 BUN (7 - 18 mg/dL) 26 H Creatinine (0.6 - 1.3 mg/dL) 2.0 H Glomerular Filtr Rate (90 - 95) 38.0 L Glucose (70 - 110 mg/dL) 109 POC Glucose (70 - 110 MG/DL) 127 H 97 75 58 L Calcium (8.0 - 10.5 mg/dL) 8.3 Phosphorus (2.5 - 4.9 MG/DL) 4.7 Magnesium (1.80 - 2.40 mg/dL) 1.90 09/10 1007 Chemistry POC Glucose (70 - 110 MG/DL) 213 H Laboratory Tests 09/11 0445 Hematology WBC (4.5 - 11.0 x10 3/uL) 7.9 RBC (4.00 - 5.60 x10 6/uL) 2.94 L Hgb (12.5 - 16.9 g/dL) 8.3 L Hct (37.5 - 50.7 %) 25.8 L MCV (81.0 - 99.0 fL) 87.8 MCH (27.0 - 33.0 pg) 28.2 MCHC (33.0 - 37.0 g/dL) 32.2 L RDW (11.5 - 14.5 %) 13.7 Plt Count (150 - 400 x10 3/uL) 269 MPV (7.0 - 9.0 fL) 9.8 H Neut % (Auto) (56.0 - 77.0 %) 67.9 Lymph % (Auto) (14.0 - 32.0 %) 16.1 Boundary % (Auto) (4.8 - 9.0 %) 9.1 H Eos % (Auto) (0.3 - 3.7 %) 5.6 H Baso % (Auto) (0.0 - 2.0 %) 0.5 Neut # (Auto) (2.0 - 7.6 x10 3/uL) 5.35 Lymph # (Auto) (1.0 - 3.8 x10 3/uL) 1.27 Boundary # (Auto) (0.1 - 0.8 x10 3/uL) 0.72 Eos # (Auto) (0.0 - 0.2 x10 3/uL) 0.44 H Baso # (Auto) (0.0 - 0.2 x10 3/uL) 0.04 Abs Immat Gran (auto) (0.00 - 0.03 x10 3/uL) 0. 06 H Add Manual Diff NO Immature Gran % (0.0 - 2.0 %) 0.8 Nucleated RBC % (0 - 0 %) 0.0 Nucleated RBCs # (Man) (0.0 - 0.1 x10 3/uL) 0.0 0 Laboratory Tests 09/10 1430 Toxicology Random Vancomycin (mcg/mL) 15.7 Laboratory Tests 09/11 0445 Chemistry Magnesium (1.80 - 2.40 mg/dL) 1.90 Radiology data: Recent Impressions: ULTRASOUND - US RETROPERITONEAL COM 09/10 1311 Report Impression - Status: SIGNED Entered: 09/10/2022 1503 IMPRESSION: No acute findings. Impression By: Hakeem Jacobo Diagnosis, Assessment Plan Consultants: cardiology, endocrinology, hospital ist, infectious disease, podiatry Free Text DxA P Notes Free Text DxA P Notes: Impression: 1. Debility 2. Infected right foot status post BKA 3. Bacteremia 4. Diabetes 5. Hypertension 6. Anemia 07/2022: Echocardiogram with normal LVEF, grade 1 diastolic dysfunction, mildly dilated LA, and no significant valvular abnormal ities Recommendation: Patient initially presented with DKA and sepsis. Diagnosed with right foot infection, underwent I D, now status post BKA. P atient had persistent bacteremia with MRSA, underwent JIMENA with negativ e findings of endocarditis. Patient now transferred to [facility] for physical therapy. Known cardiac history of hypertension and hyperlipide renetta. Vital signs stable. Echocardiogram with normal LVEF, grade 1 diastolic dysfunction, mildly dila carlos LA, and no significant valvular abnormalities. Continue to monitor bloo d pressure trend. Continue wound care and IV antibiotic therapy. Continue P T/OT. Supportive care. 09/04: Patient complaining of shortness of breath, abdominal distention and lower extremity edema. Renal function and electrolytes stable. Will give one-time dose of IV Lasix 40 mg. Blood pressure stable. P ending abdominal x-ray. Monitor intake and output. Check BMP in the morn ing. Supportive care. Plan of care discussed with patient, RN and Dr. Parham. 09/05: Patient responded well to IV Lasix , good urine output and improvement in shortness of breath. Chest x-ray ordered . Currently on Lasix 20 mg p.o. daily. Continue monitor renal function and electrolyte s. Pending lower extremity Doppler for lower extremity edema. Continue PT/O T. Supportive care. Plan of care discussed with patient, RN and Dr. Parham. 09/08: Blood pressure has been elevated, started on Coreg 3.125 mg twice daily. Continue monitor blood pressure trend and adjust medication as needed. Still having left lower extremity edema, venous Dopple r negative for DVT. continue gentle diuresis with Lasix 20 mg p.o. daily. Rec ommend Oralia wrap. Patient remains anemic, plan for EGD/colonoscopy today. Supportive care. Plan of care discussed with patient, family, RN and Dr. Parham . 09/09: Patient doing well status post EGD /colonoscopy, negative findings for GI bleed. Blood pressure improving, increased on Co reg to 12.5 mg twice daily. Elevated creatinine noted, nephrology following. No new cardiac complaint. Continue wound care. Continue PT/OT. Supportive care. Plan of care discussed with patient, RN and Dr. Parham. 09/10: Blood pressure remained stable on current regimen of Coreg. Patient continue to have left lower extremity edema. Cur rently on Lasix 20 mg daily. Creatinine 1.9 today, continue to monito r. Patient's albumin level was 1.3, it is possible that patient's lower extremity edema could be related to hypoalbuminemia leading to third spacing. Contin ue PT/OT. Supportive care. Plan of care discussed with patient, RN and Dr. Parham. 09/11: Patient doing well from cardiac standpoint . Blood pressure well controlled. Improvement in lower extremity edema with elevating leg while in bed. Creatinine 2.0 today. Denies shortness of b reath. Will hold diuretic for now and monitor renal function. Supportive care. Plan of care discussed with patient, RN and Dr. Parham. Gianni Parham 09/13/22 1457: Diagnosis, Assessment Plan Additional comments: Patient was seen and examined at bedside , agree with above assessment and plan as documented by nurse practitioner with modific ations. Physical examination reveals pulmonary rales and lower extrem ity edema. Low albumin level. Could be third spacing. Creatinine keeps going up. Hold L asix. Will discuss with nephrology. Electronically Signed by Rohit Benitez NP on 0 09/11/22 at 8004 at 8276 [facility] #:[id number] END OF REPORT 2022-09-11 09:23:00-00:00 [facility] ([facility]) Infectious Dis. Progress Note REPORT#:[id number] REPORT STATUS: Signed DATE:09/11/22 TIME: 922 PATIENT: KARMA ROWLAND UNIT #: [id number] ROOM/BED: [place] [address] : 63 AGE: 56 SEX: M ATTEND: Fredy Vences MD ADM AUTHOR: Merry Wolff MD * ALL edits or amendments must be made on the el [employer]ronic/computer document * Subjective HPI: PT is a 56yr old male with h istory of diabetes mellitus type 2, hypertension who was admitted with altered mental status and righ t-sided foot infection. According to him, he noticed a blister on his right foot around 3 days prior to presentation. His foot got progressively more sw ollen and erythema extended proximally to his lateral foot and ankle. CT abd omen and pelvis with contrast is concerning for possible prostate abscess. CT of lower extremity without contrast shows extensive sof t tissue edema with mottled gas in the subcutaneous and intramuscular compartments of the foot, comp atible with gas-forming infection. Patient's blood cultures have come ba ck positive for MRSA in 2 out of 2 sets. PT has had persistent (+)Ve cx for MR SA 08/18- 08/22. He underwent a debridement of his foot on 08/19 and cx g rew MRSA. PT was started on Vancomycin and clindamycin on 08/18. His MRI showed a prosta te abscess. 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 Pt underwent a transrectal aspiration and unroofing of prostate abscess 08/26 and cx grew Citrobacter, Enterococcus, MRSA. 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 JIMENA done 09/02. Pt was tr ansferred to Rehab on 09/02. 09/11 doing well, no fever, no chills Patient reports: Yes: pain controlled. No: cough, diarrhea, fever , headache, nausea, shortness of breath. Portions of this section wer e scribed by Jill Quintero on 09/11/22 at 1457 Objective General VS/I O: Vital Signs Date Temp Pulse Resp B/P B/P Mean Pulse Ox FiO2 09/10-09/11 97.5-97.9 70-81 16-18 137-153/71-79 92.8-103.6 96-99 Last Documented: Result Date Time Pulse Ox 96 09/11 0640 B/P 137/71 09/11 0640 B/P Mean 92.8 09/11 0640 O2 Delivery Nasal cannula 09/11 0640 Temp 97.7 09/11 0640 Pulse 81 09/11 0640 Resp 18 09/11 0640 O2 Flow Rate 2 09/08 1322 Vital Signs: Date Time Temp Pulse Resp B/P B/P Pulse O2 O2 F low FiO2 Mean Ox Delivery Rate 09/11 0640 97.7 81 18 137/71 92.8 96 Nasal cannula 09/10 2314 97.5 77 16 152/78 102.5 96 09/10 1855 97.5 70 17 153/79 103.6 97 Room air 09/10 1627 97.9 75 18 147/78 100.9 99 Room air 24 hour I O ending at 0700: 09/11 0700 09/10 1900 Intake Total Output Total 1000 Balance -1000 Number 0 Incontinent Voids Number Voids 0 Output, Urine 1000 PATIENT WEIGHT: Weight (lb): 165 Weight (oz): 5.55 Weight (kg): 75.000 Antibiotic start date: Antibiotic: vancomycin Start Date:09/03 Antibiotic: daptomycin Start Date:08/28-09/03 Antibiotic: cefepime Start Date:09/01- Antibiotic: merrem Start Date:08/27-09/01 Physical Exam General appearance: alert, awake, oriented Head/Eyes: atraumatic, clear cornea, EOMI, felisa l conjunctiva/sclera, normal eyelids/periorb, normocephalic, PERRL ENT: moist mucosal membranes, normal dentition Neck: full range of motion Cardiovascular: normal heart sounds, regular rat e rhythm Respiratory: clear to auscultation, aerating wel l Abdomen: non-tender, normal bowel sounds, soft Extremities: moves all, right BKA Left foot woun d +dressing in place 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 X 3 Considered stroke alert: no Skin: dry, intact Results Findings/Data: Laboratory Tests 09/11 09/11 09/10 09/10 09/10 0541 0445 1851 1715 1625 Chemistry Sodium (134 - 147 mEq/L) 134 Potassium (3.4 - 5.0 mEq/L) 4.3 Chloride (100 - 108 mEq/L) 105 Carbon Dioxide (21 - 33 mEq/l) 22 Anion Gap (0 - 20) 12 BUN (7 - 18 mg/dL) 26 H Creatinine (0.6 - 1.3 mg/dL) 2.0 H Glomerular Filtr Rate (90 - 95) 38.0 L Glucose (70 - 110 mg/dL) 109 POC Glucose (70 - 110 MG/DL) 127 H 97 75 58 L Calcium (8.0 - 10.5 mg/dL) 8.3 Phosphorus (2.5 - 4.9 MG/DL) 4.7 Magnesium (1.80 - 2.40 mg/dL) 1.90 09/10 1007 Chemistry POC Glucose (70 - 110 MG/DL) 213 H Laboratory Tests 09/10 1430 Toxicology Random Vancomycin (mcg/mL) 15.7 Laboratory Tests: 09/11 09/11 09/10 09/10 09/10 0541 0445 1851 1715 1625 Chemistry Sodium (134 - 147 mEq/L) 134 Potassium (3.4 - 5.0 mEq/L) 4.3 Chloride (100 - 108 mEq/L) 105 Carbon Dioxide (21 - 33 mEq/l) 22 Anion Gap (0 - 20) 12 BUN (7 - 18 mg/dL) 26 H Creatinine (0.6 - 1.3 mg/dL) 2.0 H Glomerular Filtr Rate (90 - 95) 38.0 L Glucose (70 - 110 mg/dL) 109 POC Glucose (70 - 110 MG/DL) 127 H 97 75 58 L Calcium (8.0 - 10.5 mg/dL) 8.3 Phosphorus (2.5 - 4.9 MG/DL) 4.7 Magnesium (1.80 - 2.40 mg/dL) 1.90 09/10 09/10 09/10 09/10 09/09 1430 1007 0545 0541 1911 Chemistry Sodium (134 - 147 mEq/L) 135 Potassium (3.4 - 5.0 mEq/L) 4.2 Chloride (100 - 108 mEq/L) 107 Carbon Dioxide (21 - 33 mEq/l) 21 Anion Gap (0 - 20) 11 BUN (7 - 18 mg/dL) 25 H Creatinine (0.6 - 1.3 mg/dL) 1.9 H Glomerular Filtr Rate (90 - 95) 40.4 L Glucose (70 - 110 mg/dL) 156 H POC Glucose (70 - 110 MG/DL) 213 H 154 H 102 Calcium (8.0 - 10.5 mg/dL) 8.3 Phosphorus (2.5 - 4.9 MG/DL) 4.6 Magnesium (1.80 - 2.40 mg/dL) 1.89 Hematology WBC (4.5 - 11.0 x10 3/uL) 8.6 RBC (4.00 - 5.60 x10 6/uL) 3.08 L Hgb (12.5 - 16.9 g/dL) 8.6 L Hct (37.5 - 50.7 %) 26.7 L MCV (81.0 - 99.0 fL) 86.7 MCH (27.0 - 33.0 pg) 27.9 MCHC (33.0 - 37.0 g/dL) 32.2 L RDW (11.5 - 14.5 %) 13.8 Plt Count (150 - 400 x10 3/uL) 265 MPV (7.0 - 9.0 fL) 9.6 H Neut % (Auto) (56.0 - 77.0 %) 69.4 Lymph % (Auto) (14.0 - 32.0 %) 15.5 Boundary % (Auto) (4.8 - 9.0 %) 8.5 Eos % (Auto) (0.3 - 3.7 %) 5.5 H Baso % (Auto) (0.0 - 2.0 %) 0.4 Neut # (Auto) (2.0 - 7.6 x10 3/uL) 5.94 Lymph # (Auto) (1.0 - 3.8 x10 3/uL) 1.33 Boundary # (Auto) (0.1 - 0.8 x10 3/uL) 0.73 Eos # (Auto) (0.0 - 0.2 x10 3/uL) 0.47 H Baso # (Auto) (0.0 - 0.2 x10 3/uL) 0.03 Abs Immat Gran (auto) (0.00 - 0.03 0.06 H x10 3/uL) Add Manual Diff NO Immature Gran % (0.0 - 2.0 %) 0.7 Nucleated RBC % (0 - 0 %) 0.0 Nucleated RBCs # (Man) (0.0 - 0.1 0.00 x10 3/uL) Toxicology Random Vancomycin (mcg/mL) 15.7 09/09 09/09 09/09 09/09 1606 1526 1403 1049 Chemistry POC Glucose (70 - 110 MG/DL) 109 30 L 90 Toxicology Random Vancomycin (mcg/mL) 15.4 Recent Impressions: ULTRASOUND - US RETROPERITONEAL COM 09/10 1311 Report Impression - Status: SIGNED Entered: 09/10/2022 1503 IMPRESSION: No acute findings. Impression By: Hakeem Jacobo Medication(s) Ordered: Anti-Infective Agents Sig/Jan Start time Last Medication Dose Route Stop Time Status Admin Vancomycin HCl 500 MG ONCE ONE 09/10 1600 DC Sodium Chloride 100 ML IV 09/10 1659 1627 Cefepime HCl 1 GM Q8H 09/10 1500 AC 09/11 Sodium Chloride 10 ML IV 09/13 2359 0617 Miscellaneous 1 EACH ASDIR 09/03 0130 CKD Information IV 10/03 0129 Blood Formation,Coagulation Sig/Jan Start time Last Medication Dose Route Stop Time Status Admin Ferric Sodium 125 MG DAILY 09/09 0900 AC 09/11 Gluconate Complex IV 09/16 0959 0921 Sodium Chloride 100 ML Heparin Sodium 5,000 UNIT Q8HR 09/02 2200 AC SUBQ 10/02 2159 0611 Cardiovascular Drugs Sig/Jan Start time Last Medication Dose Route Stop Time Status Admin Carvedilol 12.5 MG C BK DIN 09/09 0800 AC 09/11 PO 10/08 0759 0919 Hydralazine HCl 10 MG Q6H PRN PRN 09/01 1330 AC IV 10/01 1329 Central Nervous System Agents Sig/Jan Start time Last Medication Dose Route Stop Time Status Admin Gabapentin 100 MG Q8HR 09/10 1400 AC 09/11 PO 10/10 1359 0611 Hydromorphone HCl 0.5 MG Q12H PRN PRN 09/10 071 5 AC 09/10 IV 09/21 1300 2315 Oxycodone/ 2 TAB Q4H PRN PRN 09/10 0715 AC 08/23 9 Acetaminophen PO 10/10 1300 1359 Amitriptyline HCl 25 MG BEDTIME 09/04 2100 AC 0 09/10 PO 10/04 2059 2107 Acetaminophen 650 MG Q6H PRN PRN 09/01 1330 AC PO 10/01 1329 Electrolytic, Caloric, And Daniel Sig/Jan Start time Last Medication Dose Route Stop Time Status Admin Furosemide 20 MG BLOOD-DOSE BETWEEN 09/05 1245 CKD IV 10/05 1244 Sodium Chloride 10 ML ASDIR 09/05 1245 AC IV 10/05 1244 Furosemide 20 MG DAILY 09/05 0900 AC 09/11 PO 10/05 0859 0919 Sodium Chloride 10 ML ASDIR PRN 09/05 0630 AC 0 09/10 IV 10/05 0629 2114 Sterile Water See Dose ASDIR PRN 09/03 2030 AC Insts (1) IRR 10/03 2028 Dextrose/Water 125 ML ASDIR PRN 09/03 1515 CKD IV 10/03 151 Dextrose/Water 250 ML ASDIR PRN 09/03 1515 CKD 09/09 IV 10/03 1514 1529 Gastrointestinal Drugs Sig/Jan Start time Last Medication Dose Route Stop Time Status Admin Pantoprazole Sodium 40 MG Q12HR 09/05 0900 AC 0 09/11 IV 10/05 0859 0920 Polyethylene Glycol 17 GM DAILY 09/05 0900 AC 0 09/11 PO 10/05 0859 0918 Sennosides 8.6 MG DAILY 09/05 0900 AC 09/11 PO 10/05 0859 0920 Bisacodyl 10 MG DAILY PRN PRN 09/01 1330 AC RECTAL 10/01 1329 Docusate Sodium 100 MG Q12H PRN PRN 09/01 1330 AC PO 10/01 1329 Ondansetron HCl 4 MG Q6H PRN PRN 09/01 1330 AC IV 10/01 1329 Hormones And Synthetic Substit Sig/Jan Start time Last Medication Dose Route Stop Time Status Admin Insulin Glargine 5 UNIT BEDTIME 09/07 2100 AC 0 09/07 SUBQ 10/07 2059 2233 Insulin Human Lispro 0 AC HS 09/03 1630 AC SUBQ 10/03 1629 1134 Glucagon 1 MG ASDIR PRN 09/03 1515 AC IM 10/03 1514 Insulin Human Lispro 5 UNIT AC 09/03 0730 AC SUBQ 10/03 0729 0917 Local Anesthetics (Parenteral) Sig/Jan Start time Last Medication Dose Route Stop Time Status Admin Lidocaine 1 PATCH DAILY 09/03 09 AC 09/11 TOPICAL 05/12 0859 0918 Skin And Mucous Membrane Agent Sig/Jan Start time Last Medication Dose Route Stop Time Status Admin Zinc Oxide 1 APPLIC DAILY 09/04 899 AC 09/11 TOPICAL 10/04 0859 0920 Vitamins Sig/Jan Start time Last Medication Dose Route Stop Time Status Admin Folic Acid 2 MG DAILY 09/09 899 AC 09/11 PO 10/09 0859 0920 Multivitamins 1 TAB DAILY 09/09 899 AC 09/11 PO 10/09 0859 0920 Dose Instructions: (1)Sterile Water: DRESSING CHANGE Recent Impressions: ULTRASOUND - US RETROPERITONEAL COM 09/10 1311 Report Impression - Status: SIGNED Entered: 09/10/2022 1503 IMPRESSION: No acute findings. Impression By: Hakeem Jacobo Portions of this section wer e scribed by Jill Quintero on 09/11/22 at 0923 Treatment Prophylaxis Treatment Prophylaxis Lines: PICC Portions of this section wer e scribed by Jill Quintero on 09/11/22 at 0923 Diagnosis, Assessment Plan Free Text A P: *MRSA bacteremia -Initial blood cultures from 08/18/2022 positive for MRSA in 2 out of 2 sets. -Repeat blood cultures 08/21/2022 are already po sitive for MRSA in 2 out of 2 sets, suggesting persistent high-grade bacteremi a. -TTE 08/18/2022 negative for any obvious vegetat ions. -08/28 neg -JIMENA 09/02 neg *Prostatic abscess -s/p transrectal aspiration and unroofing on 08/26 -cx MRSA, citrobacter (r-cefazolin) Enterococcus raffinosus (S-amp,pcn, vancomycin), bacteriodes *ERIKA *Hyponatremia *Diabetic neuropathy *Diabetes mellitus type 2 *Hypertension *anemia 09/08 -cont on Cefepime and vancomycin til 5/3 for kellen atment of Prostate abscess -follow esr and crp -EGD today 09/09 -on cefepime and vancomycin til 5/3 for treatmen t of prostate abscess 09/10 on cefepime and vancomycin til 5/3 for treatment of prostate abscess check esr and crp in am 09/11 on cefepime and vancomycin til 5/3 for t reatment of prostate abscess; if pt is discharge before 09/24 can change to oral abx Consultants: cardiology, endocrinology, hospital ist, infectious disease, podiatry Portions of this section janice e scribed by Jill Quintero on 09/11/22 at 1457 at 0744 RPT #:[id number] END OF REPORT 2022-09-11 08:03:00-00:[address] [facility] ([facility]) Podiatry Progress Note REPORT#:[id number] REPORT STATUS: Signed DATE:09/11/22 TIME: 0803 PATIENT: KARMA ROWLAND UNIT #: [id number] ROOM/BED: [place] [id number] : 63 AGE: 56 SEX: M ATTEND: Fredy Vences MD ADM AUTHOR: Liam Pedersen DPM * ALL edits or amendments must be made on the [employer] document * Subjective Chief complaint: left heel ulcer. left ankle pain Patient reports: no confusion, no cough, no dizziness, no fever, no heartburn, no itching Comments: pt with great attitude has less pain and swelling. happy with therapy Objective General VS: Last Documented: Result Date Time Pulse Ox 96 09/11 0640 B/P 137/71 09/11 0640 B/P Mean 92.8 09/11 0640 O2 Delivery Nasal cannula 09/11 0640 Temp 36.5 09/11 0640 Pulse 81 09/11 0640 Resp 18 09/11 0640 O2 Flow Rate 2 09/08 1322 PATIENT WEIGHT: Weight (lb): 165 Weight (oz): 5.55 Weight (kg): 75.000 Medications: Active Meds + DC'd Last 24 Hrs Vancomycin HCl (VANCOMYCIN HCL) 500 MG ONCE ONE IV (DC) Sodium Chloride (SODIUM CHLORIDE 0.9% 100 ML) 1 00 ML Cefepime HCl (MAXIPIME) 1 GM Q8H IV Sodium Chloride (SODIUM CHLORIDE) 10 ML Gabapentin (NEURONTIN) 100 MG Q8HR PO Hydromorphone HCl (DILAUDID) 0.5 MG Q12H PRN PRN IV Oxycodone/Acetaminophen (PERCOCET 5/325MG TAB) 2 TAB Q4H PRN PRN PO Ferric Sodium Gluconate Complex (FERRLECIT) 125 MG DAILY IV Sodium Chloride (SODIUM CHLORIDE 0.9%) 100 ML Folic Acid (FOLIC ACID) 2 MG DAILY PO Multivitamins (TAB-A-MOHAN) 1 TAB DAILY PO Carvedilol (COREG) 12.5 MG C BK DIN PO Insulin Glargine (Semglee) 5 UNIT BEDTIME SUBQ Furosemide (LASIX 20MG INJ) 20 MG BLOOD-DOSE BET WEEN IV (CKD) Sodium Chloride (SODIUM CHLORIDE) 10 ML ASDIR IV Furosemide (LASIX) 20 MG DAILY PO Pantoprazole Sodium (PROTONIX) 40 MG Q12HR IV Polyethylene Glycol (MIRALAX) 17 GM DAILY PO Sennosides (Senna Lax 8.6 MG TABLET) 8.6 MG MADALYN Y PO Sodium Chloride (SODIUM CHLORIDE) 10 ML ASDIR NV N IV Amitriptyline HCl (ELAVIL) 25 MG BEDTIME PO Zinc Oxide (ZINC OXIDE 30 GM OINTMENT) 1 APPLIC DAILY TOPICAL Sterile Water (WATER FOR IRRIGATION) DRESSING CH GELACIO ASDIR PRN IRR Insulin Human Lispro (HUMALOG) 0 AC HS SUBQ Dextrose/Water (DEXTROSE 10% IN WATER) 125 ML DIR PRN IV (CKD) Dextrose/Water (DEXTROSE 10% IN WATER) 250 ML A SDIR PRN IV (CKD) Glucagon (GLUCAGON) 1 MG ASDIR PRN IM Lidocaine (LIDODERM) 1 PATCH DAILY TOPICAL Insulin Human Lispro (HUMALOG) 5 UNIT AC SUBQ Miscellaneous Information (VANCOMYCIN PHARMACY T O DOSE) 1 EACH ASDIR IV (CKD) Heparin Sodium (HEPARIN 5000 UNITS/ML) 5,000 UNI T Q8HR SUBQ Cefepime HCl (MAXIPIME) 1 GM Q6H IV (DC) Sodium Chloride (SODIUM CHLORIDE) 10 ML Acetaminophen (TYLENOL) 650 MG Q6H PRN PRN PO Bisacodyl (DULCOLAX) 10 MG DAILY PRN PRN RECTAL Docusate Sodium (COLACE) 100 MG Q12H PRN PRN PO Hydralazine HCl (APRESOLINE) 10 MG Q6H PRN PRN I V Ondansetron HCl (ZOFRAN) 4 MG Q6H PRN PRN IV I O: 24 hour I O ending at 0700: 04/20 0700 09/10 1900 Intake Total Output Total 1000 Balance -1000 Number 0 Incontinent Voids Number Voids 0 Output, Urine 1000 Dietitian nutrition assessment The data set between the solid lines has been im ported from the dietitian's assessment. BMI Calculated: 26.7 Nutrition related diagnosis: Nutrition diagnosis details: Nutrition problem: Altered nutrition labs Nutrition etiology: DM Nutrition signs and symptoms: HYPER/HYPOGLYCEMIA , A1C >14 Nutrition prescription: CONTINUE DM DIET Dietitian name: You Palmer, DIET Assessment completed: 09/09/22 Physical Exam General appearance: alert, a wake, oriented, conversational, mental status normal Wound/incision: Location: left foot Site condition: dp/pt 2/4 left. light touch dec reased left foot. ulcer starting at posterior left heel. eccymosis noted . early likely stage 1. left ankle has edema. pain with aggressive ROM left a nkle. LE vascular pulse assess: 2+ L posterior tibialis, 2+ L dorsalis pedis Considered stroke alert: no Ulcer: Location: DTI dorsal left midfoot Results Findings/Data: Laboratory Tests: 09/11 09/11 09/10 09/10 09/10 0541 0445 1851 1715 1625 Chemistry Sodium (134 - 147 mEq/L) 134 Potassium (3.4 - 5.0 mEq/L) 4.3 Chloride (100 - 108 mEq/L) 105 Carbon Dioxide (21 - 33 mEq/l) 22 Anion Gap (0 - 20) 12 BUN (7 - 18 mg/dL) 26 H Creatinine (0.6 - 1.3 mg/dL) 2.0 H Glomerular Filtr Rate (90 - 95) 38.0 L Glucose (70 - 110 mg/dL) 109 POC Glucose (70 - 110 MG/DL) 127 H 97 75 58 L Calcium (8.0 - 10.5 mg/dL) 8.3 Phosphorus (2.5 - 4.9 MG/DL) 4.7 Magnesium (1.80 - 2.40 mg/dL) 1.90 09/10 09/10 1430 1007 Chemistry POC Glucose (70 - 110 MG/DL) 213 H Toxicology Random Vancomycin (mcg/mL) 15.7 Recent Impressions: ULTRASOUND - US RETROPERITONEAL COM 09/10 1311 Report Impression - Status: SIGNED Entered: 09/10/2022 1503 IMPRESSION: No acute findings. Impression By: Hakeem Jacobo Diagnosis, Assessment Plan Free Text A P: DM with neuropathy early decub ulcer left heel OA/edema left ankle DTI dorsal left midfoot zinc oxide to foot and heel foam to heel on IV abx on PO gabapentin offloading boot oralia wraps to ankle, only when OOB with therapy. Consultants: cardiology, endocrinology, hospital ist, infectious disease, podiatry Electronically Signed by Liam Pedersen DPM on 0 09/11/22 at 0804 RPT #:[id number] END OF REPORT 2022-09-11 07:59:00-00:00 [facility] Gastroenterology Progress Note REPORT#:[id number] REPORT STATUS: Signed DATE:09/11/22 TIME: 0759 PATIENT: KARMA ROWLAND UNIT #: [id number] ROOM/BED: [place] [id number] : 63 AGE: 56 SEX: M ATTEND: Fredy Vences MD ADM AUTHOR: Kassie Avitia MD * ALL edits or amendments must be made on the [employer]/computer document * Subjective HPI: Patient is a 56-year-old male with history of di abetes mellitus type 2 and hypertension who was initially admitted for alte red mental status and right- sided foot infection. 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 The p atient is anemic with current Hgb 7.1. He has received a total of 3 un its pRBCs during this hospitalization. KUB on 09/04 was negative for acute GI process. T he patient denies overt GIB, dark tarry stools, nausea, a bdominal pain, or vomiting. He has never had EGD or colonoscopy. 09/06: No complaints today. Hemoglobin stable. No overt GI bleed. Plan for colonoscopy and endoscopy on Thursday 09/07: No complaints today. No overt GI bleed. Pl anning for colonoscopy and endoscopy tomorrow 09/08: EGD mild gastritis. colonoscopy rectal eugenia yp s/p snare. No other abnormalities 09/09: doing well. Seen at the gym. No bleeding. 09/10: Doing well. No bleeding. tolerating diet. Movig bowels 09/11: doing well. States his leg swelling is bet ter. Tolerating diet. having normal BM Objective Physical Exam HEENT: atraumatic, normocephalic Neck: full range of motion, non-tender Respiratory: symmetric expansion, no distress Abdomen: non-tender, normal bowel sounds, soft, no distention, no guarding Extremities: right BKA Considered stroke alert: no Skin: dry Diagnosis, Assessment Plan Free Text A P: 1. Positive FOBT-and anemia: The patient denies overt GIB, dark tarry stools, nausea, abdominal pain, or vomiting. He is not o n anticoagulation therapy. -Continue PPI. The patient has never had EGD or colonoscopy prior to this admission s/p EGD and colonoscopy. EGD showed mild gastrit is. Colonoscopy showed rectal polyp that was resected by snare. no evidence of bleeding. Pathology of polyp came back as tubular adenoma. recommend repeatin g colonoscopy in 5 years Anemia likely secondary to chronic kidney diseas e. Can consider video capsule endoscopy as outpt Will follow Consultants: cardiology, endocrinology, hospital ist, infectious disease, podiatry at 0800 RPT #:[id number] END OF REPORT 2022-09-11 07:35:00-00:00 [facility] Progress Note REPORT#:[id number] REPORT STATUS: Signed DATE:09/11/22 TIME: 07 PATIENT: KARMA ROWLAND UNIT #: [id number] [place]OM[place]BED: [facility] : [facility] AGE: 56 SEX: M ATTEND: Fredy Vences MD ADM AUTHOR: Barrera Ramírez MD * ALL edits or amendments must be made on the el [employer]/computer document * Subjective Chief complaint: Infected foot HPI: Patient seen and evaluated on 09/09/2022, note [facility], records reviewed and orders placed on 09/08/2022, 56-year-old male with history of diabetes mellitus type 2, hypertension and per ipheral vascular disease who was initially admitted to acute care with altered mental status and rig ht foot infection/gangrene, 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 Patient had persistent anemia requiring blood transfusion. H is fecal occult blood was positive and his creatinine was 1.2 and increase d to 1.4 today, laboratories today showed hemoglobin 8.5, platelet 231, blood count 9.1, sodium 135, potassium 4.6, CO2 22, BUN 22, creatinin e 1.4. Renal consult was requested for evaluation management of pako vated BUN and creatinine and if his decreased GFR is contributing to his anemia. Patient reports: Yes: complaints. Comments: Patient seen and evaluated, HPI no change from i nitial, feels okay. Review of Systems Constitutional: Reports: fatigue. Denies: chills, fever. Skin: Reports: swelling. Denies: rash. Allergy/Immun: Denies: hives, itching. Eyes: Denies: redness, discharge. ENT: Denies: ear drainage, ear ringing. Respiratory: Denies: hemoptysis, SOB. Cardiovascular: Denies: chest pain. Objective General VS/I O: Vital Signs: Date Time Temp Pulse Resp B/P B/P Pulse O2 O2 F low FiO2 Mean Ox Delivery Rate 09/11 0640 36.5 81 18 137/71 92.8 96 Nasal cannula 09/10 2314 36.4 77 16 152/78 102.5 96 09/10 1855 36.4 70 17 153/79 103.6 97 Room air 09/10 1627 36.6 75 18 147/78 100.9 99 Room air 24 hour I O ending at 0700: 09/11 0700 09/10 1900 Intake Total Output Total 1000 Balance -1000 Number 0 Incontinent Voids Number Voids 0 Output, Urine 1000 PATIENT WEIGHT: Weight (lb): 165 Weight (oz): 5.55 Weight (kg): 75.000 Medications Active Meds + DC'd Last 24 Hrs Vancomycin HCl (VANCOMYCIN HCL) 500 MG ONCE ONE IV (DC) Sodium Chloride (SODIUM CHLORIDE 0.9% 100 ML) 1 00 ML Cefepime HCl (MAXIPIME) 1 GM Q8H IV Sodium Chloride (SODIUM CHLORIDE) 10 ML Gabapentin (NEURONTIN) 100 MG Q8HR PO Hydromorphone HCl (DILAUDID) 0.5 MG Q12H PRN PRN IV Oxycodone/Acetaminophen (PERCOCET 5/325MG TAB) 2 TAB Q4H PRN PRN PO Ferric Sodium Gluconate Complex (FERRLECIT) 125 MG DAILY IV Sodium Chloride (SODIUM CHLORIDE 0.9%) 100 ML Folic Acid (FOLIC ACID) 2 MG DAILY PO Multivitamins (TAB-A-MOHAN) 1 TAB DAILY PO Carvedilol (COREG) 12.5 MG C BK DIN PO Insulin Glargine (Semglee) 5 UNIT BEDTIME SUBQ Furosemide (LASIX 20MG INJ) 20 MG BLOOD-DOSE BET WEEN IV (CKD) Sodium Chloride (SODIUM CHLORIDE) 10 ML ASDIR IV Furosemide (LASIX) 20 MG DAILY PO Pantoprazole Sodium (PROTONIX) 40 MG Q12HR IV Polyethylene Glycol (MIRALAX) 17 GM DAILY PO Sennosides (Senna Lax 8.6 MG TABLET) 8.6 MG MADALYN Y PO Sodium Chloride (SODIUM CHLORIDE) 10 ML ASDIR NV N IV Amitriptyline HCl (ELAVIL) 25 MG BEDTIME PO Zinc Oxide (ZINC OXIDE 30 GM OINTMENT) 1 APPLIC DAILY TOPICAL Sterile Water (WATER FOR IRRIGATION) DRESSING CH GELACIO ASDIR PRN IRR Insulin Human Lispro (HUMALOG) 0 AC HS SUBQ Dextrose/Water (DEXTROSE 10% IN WATER) 125 ML DIR PRN IV (CKD) Dextrose/Water (DEXTROSE 10% IN WATER) 250 ML DIR PRN IV (CKD) Glucagon (GLUCAGON) 1 MG ASDIR PRN IM Lidocaine (LIDODERM) 1 PATCH DAILY TOPICAL Insulin Human Lispro (HUMALOG) 5 UNIT AC SUBQ Miscellaneous Information (VANCOMYCIN PHARMACY T O DOSE) 1 EACH ASDIR IV (CKD) Heparin Sodium (HEPARIN 5000 UNITS/ML) 5,000 UNI T Q8HR SUBQ Cefepime HCl (MAXIPIME) 1 GM Q6H IV (DC) Sodium Chloride (SODIUM CHLORIDE) 10 ML Acetaminophen (TYLENOL) 650 MG Q6H PRN PRN PO Bisacodyl (DULCOLAX) 10 MG DAILY PRN PRN RECTAL Docusate Sodium (COLACE) 100 MG Q12H PRN PRN PO Hydralazine HCl (APRESOLINE) 10 MG Q6H PRN PRN I V Ondansetron HCl (ZOFRAN) 4 MG Q6H PRN PRN IV Physical Exam General appearance: alert, no acute distress Head/eyes: atraumatic, normocephalic ENT: normal nose Neck: non-tender, supple/no meningismus Cardiovascular: normal heart sounds, no rub Respiratory: aerating well, symmetric expansion Abdomen: non-tender, soft Genitourinary: no flank pain Extremities: pitting edema, non-tender Musculoskeletal: no CVA tenderness, no tendernes s 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, 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 Considered stroke alert: no Skin: dry, intact Results Findings/Data: Laboratory Tests 09/11 09/10 09/10 09/10 09/10 0541 1851 1715 1625 1007 Chemistry POC Glucose (70 - 110 MG/DL) 127 H 97 75 58 L 2 13 H 09/10 09/10 09/09 09/09 09/09 0545 0541 1911 1606 1526 Chemistry Sodium (134 - 147 mEq/L) 135 Potassium (3.4 - 5.0 mEq/L) 4.2 Chloride (100 - 108 mEq/L) 107 Carbon Dioxide (21 - 33 mEq/l) 21 Anion Gap (0 - 20) 11 BUN (7 - 18 mg/dL) 25 H Creatinine (0.6 - 1.3 mg/dL) 1.9 H Glomerular Filtr Rate (90 - 95) 40.4 L Glucose (70 - 110 mg/dL) 156 H POC Glucose (70 - 110 MG/DL) 154 H 102 109 30 L Calcium (8.0 - 10.5 mg/dL) 8.3 Phosphorus (2.5 - 4.9 MG/DL) 4.6 Magnesium (1.80 - 2.40 mg/dL) 1.89 09/09 09/09 09/09 09/08 09/08 1049 0524 0500 1954 182 Chemistry Sodium (134 - 147 mEq/L) 136 Potassium (3.4 - 5.0 mEq/L) 4.2 Chloride (100 - 108 mEq/L) 107 Carbon Dioxide (21 - 33 mEq/l) 22 Anion Gap (0 - 20) 11 BUN (7 - 18 mg/dL) 23 H Creatinine (0.6 - 1.3 mg/dL) 1.5 H Glomerular Filtr Rate (90 - 95) 53.6 L Glucose (70 - 110 mg/dL) 125 H POC Glucose (70 - 110 MG/DL) 90 128 H 106 Calcium (8.0 - 10.5 mg/dL) 8.2 Phosphorus (2.5 - 4.9 MG/DL) 4.0 Magnesium (1.80 - 2.40 mg/dL) 1.89 Iron (35 - 150 mcg/dL) 10 L TIBC (260 - 445 mcg/dL) 138 L % Saturation (14 - 34 %) 7.2 L Unsat Iron Binding (mcg/dL) 128 Ferritin (23.9 - 336.2 ng/mL) 700.5 H Lactate Dehydrogenase (87 - 241 193 IUnits/L) 09/08 09/08 09/08 1611 1318 1033 Chemistry POC Glucose (70 - 110 MG/DL) 120 H 101 99 Laboratory Tests 09/10 09/09 09/08 09/08 0545 0500 2039 182 Hematology WBC (4.5 - 11.0 x10 3/uL) 8.6 9.2 RBC (4.00 - 5.60 x10 6/uL) 3.08 L 3.01 L Hgb (12.5 - 16.9 g/dL) 8.6 L 8.5 L Hct (37.5 - 50.7 %) 26.7 L 25.9 L MCV (81.0 - 99.0 fL) 86.7 86.0 MCH (27.0 - 33.0 pg) 27.9 28.2 MCHC (33.0 - 37.0 g/dL) 32.2 L 32.8 L RDW (11.5 - 14.5 %) 13.8 13.8 Plt Count (150 - 400 x10 3/uL) 265 263 MPV (7.0 - 9.0 fL) 9.6 H 9.7 H Neut % (Auto) (56.0 - 77.0 %) 69.4 69.1 Lymph % (Auto) (14.0 - 32.0 %) 15.5 16.1 Boundary % (Auto) (4.8 - 9.0 %) 8.5 9.2 H Eos % (Auto) (0.3 - 3.7 %) 5.5 H 4.7 H Baso % (Auto) (0.0 - 2.0 %) 0.4 0.4 Neut # (Auto) (2.0 - 7.6 x10 3/uL) 5.94 6.38 Lymph # (Auto) (1.0 - 3.8 x10 3/uL) 1.33 1.49 Boundary # (Auto) (0.1 - 0.8 x10 3/uL) 0.73 0.85 H Eos # (Auto) (0.0 - 0.2 x10 3/uL) 0.47 H 0.43 H Baso # (Auto) (0.0 - 0.2 x10 3/uL) 0.03 0.04 Abs Immat Gran (auto) (0.00 - 0.03 x10 3/uL) 0. 06 H 0.05 H Add Manual Diff NO NO Immature Gran % (0.0 - 2.0 %) 0.7 0.5 Nucleated RBC % (0 - 0 %) 0.0 0.0 Nucleated RBCs # (Man) (0.0 - 0.1 x10 3/uL) 0.0 0 0.00 Retic Count (auto) (0.3 - 2.3 %) 1.3 Haptoglobin (29 - 370 mg/dL) 292 Laboratory Tests 09/10 09/09 09/08 1430 1403 1045 Toxicology Random Vancomycin (mcg/mL) 15.7 15.4 15.8 Recent Impressions: ULTRASOUND - US RETROPERITONEAL COM 09/10 1311 Report Impression - Status: SIGNED Entered: 09/10/2022 150 IMPRESSION: No acute findings. Impression By: Hakeem Jacobo Laboratory Tests 09/11 09/10 09/10 09/10 09/10 0541 1851 1715 1625 1007 Chemistry POC Glucose (70 - 110 MG/DL) 127 H 97 75 58 L 2 13 H Laboratory Tests 09/10 1430 Toxicology Random Vancomycin (mcg/mL) 15.7 Diagnosis, Assessment Plan Free Text A P: Patient seen and evaluated, discussed with care team, images and laboratories reviewed. Diabetes mellitus: Insulin: Monitor bloo d sugar closely and adjust medications as needed, followed by endocrinology. Hypertension: Blood pressure is not well controlled, increase Coreg to 12.5 mg p.o. 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 We will check serum immu nofixation. Acute kidney injury: We will check renal bladder ultrasound, check postvoid residual, check urine protein creatinine ratio Hypomagnesemia: We will supplement 09/10/2022 laboratory this mo rning showed sodium 135, potassium 4.2, CO2 21, BUN 25, creatinine 1.9 continues to worsen, etiology unclear, however his development some eosinophili a not sure if he is developing AIN, suggest changing cefepime to a different class of antibiotic if p ossible, will check renal bladder ultrasound 09/11/2022 laboratory this mo rning showed sodium 134, potassium 4.3, CO2 22, BUN 26, creatinine 2 up from 1.9, hopefully creatini ne is plateauing, renal ultrasound negative. Consultants: cardiology, endocrinology, hospital ist, infectious disease, podiatry Electronically Signed by Barrera Ramírez MD on at 0939 RPT #:[id number] END OF REPORT 2022-09-11 06:12:00-00:[address] [facility] ([facility]) Pain Management Progress Note REPORT#:[id number] REPORT STATUS: Signed DATE:09/11/22 TIME: 611 PATIENT: KARMA ROWLAND UNIT #: [id number] ROOM/BED: [place] [address] : 63 AGE: 56 SEX: M ATTEND: Fredy Vences MD ADM AUTHOR: Charlie Quiroga CLAY MILLER * ALL edits or amendments must be made on the [employer]/computer document * Charlie Quiroga 09/11/22 0612: Subjective Chief complaint: Patient seen and examined. Chart/MAR reviewed. Patient did better with pain control aft er medications were adjusted. Had a BM yesterday morning. No side effects. Patient being seen for Acute postoperative pain, right foot and ankle gangrene, requiring BKA, Constipation Patient is still requiring medications to help w ith managing current problems. Patient is requiring IV narcotics to help manage breakthrough pain No fever/chills, chest pain, orthopnea, nausea/v omiting, pruritus, or hallucinations. 14 point ROS undertaken unremarkable except as n oted Objective General VS/I O: Vital Signs Date Temp Pulse Resp B/P B/P Mean Pulse Ox FiO2 09/10 97.5-98.2 70-80 16-18 147-153/71-79 96.5- 103.6 96-99 Last Documented: Result Date Time Pulse Ox 96 09/10 2314 B/P 152/78 09/10 2314 B/P Mean 102.5 09/10 2314 Temp 97.5 09/10 2314 Pulse 77 09/10 2314 Resp 16 09/10 2314 O2 Delivery Room air 09/10 1855 O2 Flow Rate 2 09/08 1322 24 hour I O ending at 0700: 09/11 0700 09/10 1900 Intake Total Output Total 350 Balance -350 Number 0 Incontinent Voids Number Voids 0 Output, Urine 350 PATIENT WEIGHT: Weight (lb): 165 Weight (oz): 5.55 Weight (kg): 75.000 Medications: Active Meds + DC'd Last 24 Hrs Vancomycin HCl (VANCOMYCIN HCL) 500 MG ONCE ONE IV (DC) Sodium Chloride (SODIUM CHLORIDE 0.9% 100 ML) 1 00 ML Cefepime HCl (MAXIPIME) 1 GM Q8H IV Sodium Chloride (SODIUM CHLORIDE) 10 ML Gabapentin (NEURONTIN) 100 MG Q8HR PO Hydromorphone HCl (DILAUDID) 0.5 MG Q12H PRN PRN IV Oxycodone/Acetaminophen (PERCOCET 5/325MG TAB) 2 TAB Q4H PRN PRN PO Ferric Sodium Gluconate Complex (FERRLECIT) 125 MG DAILY IV Sodium Chloride (SODIUM CHLORIDE 0.9%) 100 ML Folic Acid (FOLIC ACID) 2 MG DAILY PO Multivitamins (TAB-A-MOHAN) 1 TAB DAILY PO Carvedilol (COREG) 12.5 MG C BK DIN PO Hydromorphone HCl (DILAUDID) 0.5 MG Q6H PRN PRN IV (DC) Insulin Glargine (Semglee) 5 UNIT BEDTIME SUBQ Furosemide (LASIX 20MG INJ) 20 MG BLOOD-DOSE BET WEEN IV (CKD) Sodium Chloride (SODIUM CHLORIDE) 10 ML ASDIR IV Furosemide (LASIX) 20 MG DAILY PO Pantoprazole Sodium (PROTONIX) 40 MG Q12HR IV Polyethylene Glycol (MIRALAX) 17 GM DAILY PO Sennosides (Senna Lax 8.6 MG TABLET) 8.6 MG MADALYN Y PO Sodium Chloride (SODIUM CHLORIDE) 10 ML ASDIR NV N IV Amitriptyline HCl (ELAVIL) 25 MG BEDTIME PO Zinc Oxide (ZINC OXIDE 30 GM OINTMENT) 1 APPLIC DAILY TOPICAL Sterile Water (WATER FOR IRRIGATION) DRESSING CH GELACIO ASDIR PRN IRR Insulin Human Lispro (HUMALOG) 0 AC HS SUBQ Dextrose/Water (DEXTROSE 10% IN WATER) 125 ML DIR PRN IV (CKD) Dextrose/Water (DEXTROSE 10% IN WATER) 250 ML DIR PRN IV (CKD) Glucagon (GLUCAGON) 1 MG ASDIR PRN IM Hydrocodone Bitart/Acetaminophen (NORCO 10/325) 1 TAB Q4H PRN PRN PO (DC ) Lidocaine (LIDODERM) 1 PATCH DAILY TOPICAL Insulin Human Lispro (HUMALOG) 5 UNIT AC SUBQ Miscellaneous Information (VANCOMYCIN PHARMACY T O DOSE) 1 EACH ASDIR IV (CKD) Heparin Sodium (HEPARIN 5000 UNITS/ML) 5,000 UNI T Q8HR SUBQ Cefepime HCl (MAXIPIME) 1 GM Q6H IV (DC) Sodium Chloride (SODIUM CHLORIDE) 10 ML Acetaminophen (TYLENOL) 650 MG Q6H PRN PRN PO Bisacodyl (DULCOLAX) 10 MG DAILY PRN PRN RECTAL Docusate Sodium (COLACE) 100 MG Q12H PRN PRN PO Hydralazine HCl (APRESOLINE) 10 MG Q6H PRN PRN I V Ondansetron HCl (ZOFRAN) 4 MG Q6H PRN PRN IV Physical Exam General appearance: alert, awake, oriented, plea delia Head/eyes: atraumatic, EOMI, normocephalic, norm al conjunctiva/sclera, PERRLA ENT: normal ear left, normal ear right, normal n ose, normal pharynx, moist mucosal membranes Neck: full range of motion, no lymphadenopathy, supple/no meningismus Cardiovascular: regular rate rhythm Respiratory: clear to auscultation, no distress, aerating well Abdomen: soft, non-tender, no distention , active bowel sounds in all quarants. 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, no sensory deficit s, CNII-XII grossly intact Considered stroke alert: no Skin: normal turgor Psychiatry: normal affect Results Findings/data: Laboratory Tests: 09/11 09/10 09/10 09/10 09/10 0541 1851 1715 1625 1430 Chemistry POC Glucose (70 - 110 MG/DL) 127 H 97 75 58 L Toxicology Random Vancomycin (mcg/mL) 15.7 09/10 1007 Chemistry POC Glucose (70 - 110 MG/DL) 213 H Recent Impressions: ULTRASOUND - US RETROPERITONEAL COM 09/10 1311 Report Impression - Status: SIGNED Entered: 09/10/2022 1503 IMPRESSION: No acute findings. Impression By: Yared - Hakeem Perez Diagnosis, Assessment Plan Free text A P: A/P: Patient is a 56 year old male who presents with: Recent prostate abscess -Status post TURP with unroofing of abscess -IV antibiotics with vancomycin until 09-24-2022 Acute postoperative pain, right foot and ankle g angrene, requiring BKA -Patient is at risk for further amputations or l oss of limb due to comorbid conditions -Status post right BKA 08/28/2022 -DC Check 10/325 1 tablet p.o. every 4 hours as needed pain scale 4 10 -Tylenol 650 mg p.o. every 6 hours as needed ofelia n scale 1 3 -Dilaudid 0.5 mg IV every 12 hours as needed ofelia n scale 7 10, second line therapy-patient will require close monit oring while using IV narcotics for any deleterious effect -Percocet 10/325mg every 4 hours as needed, pain scale 4-10 (09/10) -Lidoderm patch to left ankle daily -IV antibiotics with vancomycin until 5- -Local wound care -manageable Diabetic peripheral neuropathy -amitriptyline 25mg PO QHS -Gabapentin 100mg every 8 hours (09/10) -manageable Hypertension -We will monitor hypertension and tachycardia du e to pain, and hypotension as well as bradycardia secondary over sedation with narcotics -Hydralazine as needed Elevated LFTs -08/20/22-AST 51, ALT 22 -09/03/2022-AST 15, ALT 7 -Patient will require close monitoring since he is using narcotics with Tylenol Impaired functional mobility, balance, gait, and endurance -PT/OT Antalgic/Impaired gait -PT/OT -Improve strength, endurance, self-care, gait, b alance, ADLs -Fall precautions per unit protocol -Pain medications as outlined above Constipation -We will monitor while utilizing opioid narcotic medications. -Adequate fluid intake also discussed. -Colace 100 mg p.o. twice daily as needed -Dulcolax 10 mg rectally daily as needed -Senna lax 8.6mg daily -Miralax 17gm daily -manageable Disposition: Past Medical History: Prostate abscess, right fo ot foot and ankle gangrene, diabetes, hypertension, hyperlipidemia Past Surgical History: TURP, right BKA Family History: Noncontributory Social History: Denies tobacco, alcohol, or drug use Allergies: NKDA Patient has failed conservative medical therapy. Patient will require monitoring while utilize na rcotic medications for any adverse effects, and will adjust as needed Plan of care discussed with patient and nurse All diagnostics of last 24 hours been reviewed. Risks versus benefits of opioid medications were reviewed to include, but not limited to respiratory depression, accid ental overdose, altered mental status, sudden , constipation which could result in bowel obstruction, seizures, withdrawal, dependency addiction, risk for falls . Case discussed with Dr Ng whom agrees. Thank you for the consultation. [place] [facility] NURSE: -database searched, no information found Kingsley Ng 09/29/22 1745: Attestations Physician Attestation Agree w/findings plan: The patient was seen and exa mined by Charlie Quiroga. I personally developed the care plan, which was continued by the mid-level provider. I was immediately available. at 1247 Electronically Signed by Kingsley Ng MD on 3 at 1748 RPT #:[id number] END OF REPORT 2022-09-10 19:53:00-00:00 [facility] Podiatry Progress Note REPORT#:[id number] REPORT STATUS: Signed DATE:09/10/22 TIME: 1952 PATIENT: KARMA ROWLAND UNIT #: [id number] ROOM/BED: [place] [address] : 63 AGE: 56 SEX: M ATTEND: Fredy Vences MD ADM AUTHOR: Liam Pedersen DPM * ALL edits or amendments must be made on the [employer]/computer document * Subjective Chief complaint: left heel ulcer. left ankle pain Patient reports: no confusio n, no cough, no diarrhea, no fever, no heartburn, no nausea Objective General VS: Last Documented: Result Date Time Pulse Ox 97 09/10 1854 B/P 153/79 09/10 1854 B/P Mean 103.6 09/10 1854 O2 Delivery Room air 09/10 1854 Temp 36.4 09/10 1854 Pulse 70 09/10 1854 Resp 17 09/10 1854 O2 Flow Rate 2 09/08 1322 PATIENT WEIGHT: Weight (lb): 165 Weight (oz): 5.55 Weight (kg): 75.000 Medications: Active Meds + DC'd Last 24 Hrs Vancomycin HCl (VANCOMYCIN HCL) 500 MG ONCE ONE IV (DC) Sodium Chloride (SODIUM CHLORIDE 0.9% 100 ML) 1 00 ML Cefepime HCl (MAXIPIME) 1 GM Q8H IV Sodium Chloride (SODIUM CHLORIDE) 10 ML Gabapentin (NEURONTIN) 100 MG Q8HR PO Hydromorphone HCl (DILAUDID) 0.5 MG Q12H PRN PRN IV Oxycodone/Acetaminophen (PERCOCET 5/325MG TAB) 2 TAB Q4H PRN PRN PO Ferric Sodium Gluconate Complex (FERRLECIT) 125 MG DAILY IV Sodium Chloride (SODIUM CHLORIDE 0.9%) 100 ML Folic Acid (FOLIC ACID) 2 MG DAILY PO Multivitamins (TAB-A-MOHAN) 1 TAB DAILY PO Carvedilol (COREG) 12.5 MG C BK DIN PO Hydromorphone HCl (DILAUDID) 0.5 MG Q6H PRN PRN IV (DC) Insulin Glargine (Lantus/Semglee) 5 UNIT BEDTIME SUBQ Furosemide (LASIX 20MG INJ) 20 MG BLOOD-DOSE BET WEEN IV (CKD) Sodium Chloride (SODIUM CHLORIDE) 10 ML ASDIR IV Furosemide (LASIX) 20 MG DAILY PO Pantoprazole Sodium (PROTONIX) 40 MG Q12HR IV Polyethylene Glycol (MIRALAX) 17 GM DAILY PO Sennosides (Senna Lax 8.6 MG TABLET) 8.6 MG MADALYN Y PO Sodium Chloride (SODIUM CHLORIDE) 10 ML ASDIR NV N IV Amitriptyline HCl (ELAVIL) 25 MG BEDTIME PO Zinc Oxide (ZINC OXIDE 30 GM OINTMENT) 1 APPLIC DAILY TOPICAL Sterile Water (WATER FOR IRRIGATION) DRESSING CH GELACIO ASDIR PRN IRR Insulin Human Lispro (HUMALOG) 0 AC HS SUBQ Dextrose/Water (DEXTROSE 10% IN WATER) 125 ML DIR PRN IV (CKD) Dextrose/Water (DEXTROSE 10% IN WATER) 250 ML DIR PRN IV (CKD) Glucagon (GLUCAGON) 1 MG ASDIR PRN IM Hydrocodone Bitart/Acetaminophen (NORCO 10/325) 1 TAB Q4H PRN PRN PO (DC ) Lidocaine (LIDODERM) 1 PATCH DAILY TOPICAL Insulin Human Lispro (HUMALOG) 5 UNIT AC SUBQ Miscellaneous Information (VANCOMYCIN PHARMACY T O DOSE) 1 EACH ASDIR IV (CKD) Heparin Sodium (HEPARIN 5000 UNITS/ML) 5,000 UNI T Q8HR SUBQ Cefepime HCl (MAXIPIME) 1 GM Q6H IV (DC) Sodium Chloride (SODIUM CHLORIDE) 10 ML Acetaminophen (TYLENOL) 650 MG Q6H PRN PRN PO Bisacodyl (DULCOLAX) 10 MG DAILY PRN PRN RECTAL Docusate Sodium (COLACE) 100 MG Q12H PRN PRN PO Hydralazine HCl (APRESOLINE) 10 MG Q6H PRN PRN I V Ondansetron HCl (ZOFRAN) 4 MG Q6H PRN PRN IV I O: 24 hour I O ending at 0700: 09/10 0700 09/09 1900 Intake Total 715 Output Total Balance 715 Intake, Oral 715 Dietitian nutrition assessment The data set between the solid lines has been im ported from the dietitian's assessment. BMI Calculated: 26.7 Nutrition related diagnosis: Nutrition diagnosis details: Nutrition problem: Altered nutrition labs Nutrition etiology: DM Nutrition signs and symptoms: HYPER/HYPOGLYCEMIA , A1C >14 Nutrition prescription: CONTINUE DM DIET Dietitian name: You Palmer, DIET Assessment completed: 09/09/22 Physical Exam General appearance: alert, awake, oriented Wound/incision: Location: left foot Site condition: dp/pt 2/4 left. light touch dec reased left foot. ulcer starting at posterior left heel. eccymosis noted . early likely stage 1. left ankle has edema. pain with aggressive ROM left a nkle. LE vascular pulse assess: 2+ L posterior tibialis, 2+ L dorsalis pedis Considered stroke alert: no Ulcer: Location: DTI dorsal left midfoot Results Findings/Data: Laboratory Tests: 09/10 09/10 09/10 09/10 09/10 1851 1715 1625 1430 1007 Chemistry POC Glucose (70 - 110 MG/DL) 97 75 58 L 213 H Toxicology Random Vancomycin (mcg/mL) 15.7 09/10 09/10 0545 4582 Chemistry Sodium (134 - 147 mEq/L) 135 Potassium (3.4 - 5.0 mEq/L) 4.2 Chloride (100 - 108 mEq/L) 107 Carbon Dioxide (21 - 33 mEq/l) 21 Anion Gap (0 - 20) 11 BUN (7 - 18 mg/dL) 25 H Creatinine (0.6 - 1.3 mg/dL) 1.9 H Glomerular Filtr Rate (90 - 95) 40.4 L Glucose (70 - 110 mg/dL) 156 H POC Glucose (70 - 110 MG/DL) 154 H Calcium (8.0 - 10.5 mg/dL) 8.3 Phosphorus (2.5 - 4.9 MG/DL) 4.6 Magnesium (1.80 - 2.40 mg/dL) 1.89 Hematology WBC (4.5 - 11.0 x10 3/uL) 8.6 RBC (4.00 - 5.60 x10 6/uL) 3.08 L Hgb (12.5 - 16.9 g/dL) 8.6 L Hct (37.5 - 50.7 %) 26.7 L MCV (81.0 - 99.0 fL) 86.7 MCH (27.0 - 33.0 pg) 27.9 MCHC (33.0 - 37.0 g/dL) 32.2 L RDW (11.5 - 14.5 %) 13.8 Plt Count (150 - 400 x10 3/uL) 265 MPV (7.0 - 9.0 fL) 9.6 H Neut % (Auto) (56.0 - 77.0 %) 69.4 Lymph % (Auto) (14.0 - 32.0 %) 15.5 Boundary % (Auto) (4.8 - 9.0 %) 8.5 Eos % (Auto) (0.3 - 3.7 %) 5.5 H Baso % (Auto) (0.0 - 2.0 %) 0.4 Neut # (Auto) (2.0 - 7.6 x10 3/uL) 5.94 Lymph # (Auto) (1.0 - 3.8 x10 3/uL) 1.33 Boundary # (Auto) (0.1 - 0.8 x10 3/uL) 0.73 Eos # (Auto) (0.0 - 0.2 x10 3/uL) 0.47 H Baso # (Auto) (0.0 - 0.2 x10 3/uL) 0.03 Abs Immat Gran (auto) (0.00 - 0.03 x10 3/uL) 0. 06 H Add Manual Diff NO Immature Gran % (0.0 - 2.0 %) 0.7 Nucleated RBC % (0 - 0 %) 0.0 Nucleated RBCs # (Man) (0.0 - 0.1 x10 3/uL) 0. 00 Recent Impressions: ULTRASOUND - US RETROPERITONEAL COM 09/10 1311 Report Impression - Status: SIGNED Entered: 09/10/2022 1503 IMPRESSION: No acute findings. Impression By: Hakeem Jacobo Diagnosis, Assessment Plan Free Text A P: DM with neuropathy early decub ulcer left heel OA/edema left ankle DTI dorsal left midfoot zinc oxide to foot and heel foam to heel on IV abx offloading boot oralia wraps to ankle, only when OOB with therapy. Consultants: cardiology, endocrinology, hospital ist, infectious disease, podiatry Electronically Signed by Liam Pedersen DPM on 0 09/10/22 at 1954 RPT #:[id number] END OF REPORT 2022-09-10 17:52:00-00:00 [facility] Note REPORT#:[id number] REPORT STATUS: Signed DATE:09/10/22 TIME: 1751 PATIENT: KARMA ROWLAND UNIT #: [id number] ROOM/BED: [place] [address] : 63 AGE: 56 SEX: M ATTEND: Fredy Vences MD ADM AUTHOR: Braxton Chapin MD * ALL edits or amendments must be made on the el ectronic/computer document * Subjective Patient reports: no complaints Objective General VS: Last Documented: Result Date Time Pulse Ox 99 09/10 1627 B/P 147/78 09/10 162 B/P Mean 100.9 09/10 162 O2 Delivery Room air 09/10 1626 Temp 36.6 09/10 162 Pulse 75 09/10 162 Resp 18 09/10 1627 O2 Flow Rate 2 09/08 1322 PATIENT WEIGHT: Weight (lb): 165 Weight (oz): 5.55 Weight (kg): 75.000 Medications: Active Meds + DC'd Last 24 Hrs Vancomycin HCl (VANCOMYCIN HCL) 500 MG ONCE ONE IV (DC) Sodium Chloride (SODIUM CHLORIDE 0.9% 100 ML) 1 00 ML Cefepime HCl (MAXIPIME) 1 GM Q8H IV Sodium Chloride (SODIUM CHLORIDE) 10 ML Gabapentin (NEURONTIN) 100 MG Q8HR PO Hydromorphone HCl (DILAUDID) 0.5 MG Q12H PRN PRN IV Oxycodone/Acetaminophen (PERCOCET 5/325MG TAB) 2 TAB Q4H PRN PRN PO Ferric Sodium Gluconate Complex (FERRLECIT) 125 MG DAILY IV Sodium Chloride (SODIUM CHLORIDE 0.9%) 100 ML Folic Acid (FOLIC ACID) 2 MG DAILY PO Multivitamins (TAB-A-MOHAN) 1 TAB DAILY PO Carvedilol (COREG) 12.5 MG C BK DIN PO Hydromorphone HCl (DILAUDID) 0.5 MG Q6H PRN PRN IV (DC) Insulin Glargine (Lantus/Semglee) 5 UNIT BEDTIME SUBQ Furosemide (LASIX 20MG INJ) 20 MG BLOOD-DOSE BET WEEN IV (CKD) Sodium Chloride (SODIUM CHLORIDE) 10 ML ASDIR IV Furosemide (LASIX) 20 MG DAILY PO Pantoprazole Sodium (PROTONIX) 40 MG Q12HR IV Polyethylene Glycol (MIRALAX) 17 GM DAILY PO Sennosides (Senna Lax 8.6 MG TABLET) 8.6 MG MADALYN Y PO Sodium Chloride (SODIUM CHLORIDE) 10 ML ASDIR NV N IV Amitriptyline HCl (ELAVIL) 25 MG BEDTIME PO Zinc Oxide (ZINC OXIDE 30 GM OINTMENT) 1 APPLIC DAILY TOPICAL Sterile Water (WATER FOR IRRIGATION) DRESSING CH GELACIO ASDIR PRN IRR Insulin Human Lispro (HUMALOG) 0 AC HS SUBQ Dextrose/Water (DEXTROSE 10% IN WATER) 125 ML DIR PRN IV (CKD) Dextrose/Water (DEXTROSE 10% IN WATER) 250 ML DIR PRN IV (CKD) Glucagon (GLUCAGON) 1 MG ASDIR PRN IM Hydrocodone Bitart/Acetaminophen (NORCO 10/325) 1 TAB Q4H PRN PRN PO (DC ) Lidocaine (LIDODERM) 1 PATCH DAILY TOPICAL Insulin Human Lispro (HUMALOG) 5 UNIT AC SUBQ Miscellaneous Information (VANCOMYCIN PHARMACY T O DOSE) 1 EACH ASDIR IV (CKD) Heparin Sodium (HEPARIN 5000 UNITS/ML) 5,000 UNI T Q8HR SUBQ Cefepime HCl (MAXIPIME) 1 GM Q6H IV (DC) Sodium Chloride (SODIUM CHLORIDE) 10 ML Acetaminophen (TYLENOL) 650 MG Q6H PRN PRN PO Bisacodyl (DULCOLAX) 10 MG DAILY PRN PRN RECTAL Docusate Sodium (COLACE) 100 MG Q12H PRN PRN PO Hydralazine HCl (APRESOLINE) 10 MG Q6H PRN PRN I V Ondansetron HCl (ZOFRAN) 4 MG Q6H PRN PRN IV Physical Exam General appearance: alert, awake Diagnosis, Assessment Plan Hospital course to date: Laboratory Tests: 09/10 09/10 09/10 09/10 09/10 1715 1625 1430 1007 0545 Chemistry Sodium (134 - 147 mEq/L) 135 Potassium (3.4 - 5.0 mEq/L) 4.2 Chloride (100 - 108 mEq/L) 107 Carbon Dioxide (21 - 33 mEq/l) 21 Anion Gap (0 - 20) 11 BUN (7 - 18 mg/dL) 25 H Creatinine (0.6 - 1.3 mg/dL) 1.9 H Glomerular Filtr Rate (90 - 95) 40.4 L Glucose (70 - 110 mg/dL) 156 H POC Glucose (70 - 110 MG/DL) 75 58 L 213 H Calcium (8.0 - 10.5 mg/dL) 8.3 Phosphorus (2.5 - 4.9 MG/DL) 4.6 Magnesium (1.80 - 2.40 mg/dL) 1.89 Hematology WBC (4.5 - 11.0 x10 3/uL) 8.6 RBC (4.00 - 5.60 x10 6/uL) 3.08 L Hgb (12.5 - 16.9 g/dL) 8.6 L Hct (37.5 - 50.7 %) 26.7 L MCV (81.0 - 99.0 fL) 86.7 MCH (27.0 - 33.0 pg) 27.9 MCHC (33.0 - 37.0 g/dL) 32.2 L RDW (11.5 - 14.5 %) 13.8 Plt Count (150 - 400 x10 3/uL) 265 MPV (7.0 - 9.0 fL) 9.6 H Neut % (Auto) (56.0 - 77.0 %) 69.4 Lymph % (Auto) (14.0 - 32.0 %) 15.5 Boundary % (Auto) (4.8 - 9.0 %) 8.5 Eos % (Auto) (0.3 - 3.7 %) 5.5 H Baso % (Auto) (0.0 - 2.0 %) 0.4 Neut # (Auto) (2.0 - 7.6 x10 3/uL) 5.94 Lymph # (Auto) (1.0 - 3.8 x10 3/uL) 1.33 Boundary # (Auto) (0.1 - 0.8 x10 3/uL) 0.73 Eos # (Auto) (0.0 - 0.2 x10 3/uL) 0.47 H Baso # (Auto) (0.0 - 0.2 x10 3/uL) 0.03 Abs Immat Gran (auto) (0.00 - 0.03 0.06 H x10 3/uL) Add Manual Diff NO Immature Gran % (0.0 - 2.0 %) 0.7 Nucleated RBC % (0 - 0 %) 0.0 Nucleated RBCs # (Man) (0.0 - 0.1 0.00 x10 3/uL) Toxicology Random Vancomycin (mcg/mL) 15.7 09/10 09/09 0541 1911 Chemistry POC Glucose (70 - 110 MG/DL) 154 H 102 Recent Impressions: ULTRASOUND - US RETROPERITONEAL COM 09/10 1311 Report Impression - Status: SIGNED Entered: 09/10/2022 8102 IMPRESSION: No acute findings. Impression By: Hakeem Jacobo Laboratory Tests: 09/09 09/09 09/09 09/09 09/09 1606 1526 1403 1049 0524 Chemistry POC Glucose (70 - 110 MG/DL) 109 30 L 90 128 H Toxicology Random Vancomycin (mcg/mL) 15.4 09/09 09/08 09/08 0500 1955 1828 Chemistry Sodium (134 - 147 mEq/L) 136 Potassium (3.4 - 5.0 mEq/L) 4.2 Chloride (100 - 108 mEq/L) 107 Carbon Dioxide (21 - 33 mEq/l) 22 Anion Gap (0 - 20) 11 BUN (7 - 18 mg/dL) 23 H Creatinine (0.6 - 1.3 mg/dL) 1.5 H Glomerular Filtr Rate (90 - 95) 53.6 L Glucose (70 - 110 mg/dL) 125 H POC Glucose (70 - 110 MG/DL) 106 Calcium (8.0 - 10.5 mg/dL) 8.2 Phosphorus (2.5 - 4.9 MG/DL) 4.0 Magnesium (1.80 - 2.40 mg/dL) 1.89 Iron (35 - 150 mcg/dL) 10 L TIBC (260 - 445 mcg/dL) 138 L % Saturation (14 - 34 %) 7.2 L Unsat Iron Binding (mcg/dL) 128 Ferritin (23.9 - 336.2 ng/mL) 700.5 H Lactate Dehydrogenase (87 - 241 IUnits/L) 193 Hematology WBC (4.5 - 11.0 x10 3/uL) 9.2 RBC (4.00 - 5.60 x10 6/uL) 3.01 L Hgb (12.5 - 16.9 g/dL) 8.5 L Hct (37.5 - 50.7 %) 25.9 L MCV (81.0 - 99.0 fL) 86.0 MCH (27.0 - 33.0 pg) 28.2 MCHC (33.0 - 37.0 g/dL) 32.8 L RDW (11.5 - 14.5 %) 13.8 Plt Count (150 - 400 x10 3/uL) 263 MPV (7.0 - 9.0 fL) 9.7 H Neut % (Auto) (56.0 - 77.0 %) 69.1 Lymph % (Auto) (14.0 - 32.0 %) 16.1 Boundary % (Auto) (4.8 - 9.0 %) 9.2 H Eos % (Auto) (0.3 - 3.7 %) 4.7 H Baso % (Auto) (0.0 - 2.0 %) 0.4 Neut # (Auto) (2.0 - 7.6 x10 3/uL) 6.38 Lymph # (Auto) (1.0 - 3.8 x10 3/uL) 1.49 Boundary # (Auto) (0.1 - 0.8 x10 3/uL) 0.85 H Eos # (Auto) (0.0 - 0.2 x10 3/uL) 0.43 H Baso # (Auto) (0.0 - 0.2 x10 3/uL) 0.04 Abs Immat Gran (auto) (0.00 - 0.03 x10 3/uL) 0. 05 H Add Manual Diff NO Immature Gran % (0.0 - 2.0 %) 0.5 Nucleated RBC % (0 - 0 %) 0.0 Nucleated RBCs # (Man) (0.0 - 0.1 x10 3/uL) 0.0 0 Retic Count (auto) (0.3 - 2.3 %) 1.3 Laboratory Tests: 09/08 09/08 09/08 09/08 09/08 1611 1318 1045 1033 0616 Chemistry POC Glucose (70 - 110 MG/DL) 120 H 101 99 101 Toxicology Random Vancomycin (mcg/mL) 15.8 09/08 09/07 09/07 0615 2238 2110 Chemistry Sodium (134 - 147 mEq/L) 135 Potassium (3.4 - 5.0 mEq/L) 4.6 Chloride (100 - 108 mEq/L) 107 Carbon Dioxide (21 - 33 mEq/l) 22 Anion Gap (0 - 20) 10 BUN (7 - 18 mg/dL) 22 H Creatinine (0.6 - 1.3 mg/dL) 1.4 H Glomerular Filtr Rate (90 - 95) 58.3 L Glucose (70 - 110 mg/dL) 100 POC Glucose (70 - 110 MG/DL) 135 H 127 H Calcium (8.0 - 10.5 mg/dL) 8.1 Magnesium (1.80 - 2.40 mg/dL) 1.58 L Total Creatine Kinase (46 - 171 Units/L) 22 L Albumin (3.4 - 5.0 g/dL) 1.30 L Prealbumin (16.0 - 40.0 mg/dL) < 5.0 L Hematology WBC (4.5 - 11.0 x10 3/uL) 9.1 RBC (4.00 - 5.60 x10 6/uL) 3.05 L Hgb (12.5 - 16.9 g/dL) 8.5 L Hct (37.5 - 50.7 %) 26.2 L MCV (81.0 - 99.0 fL) 85.9 MCH (27.0 - 33.0 pg) 27.9 MCHC (33.0 - 37.0 g/dL) 32.4 L RDW (11.5 - 14.5 %) 13.5 Plt Count (150 - 400 x10 3/uL) 231 MPV (7.0 - 9.0 fL) 9.6 H Neut % (Auto) (56.0 - 77.0 %) 73.3 Lymph % (Auto) (14.0 - 32.0 %) 13.7 L Boundary % (Auto) (4.8 - 9.0 %) 7.2 Eos % (Auto) (0.3 - 3.7 %) 4.8 H Baso % (Auto) (0.0 - 2.0 %) 0.3 Neut # (Auto) (2.0 - 7.6 x10 3/uL) 6.64 Lymph # (Auto) (1.0 - 3.8 x10 3/uL) 1.24 Boundary # (Auto) (0.1 - 0.8 x10 3/uL) 0.65 Eos # (Auto) (0.0 - 0.2 x10 3/uL) 0.43 H Baso # (Auto) (0.0 - 0.2 x10 3/uL) 0.03 Abs Immat Gran (auto) (0.00 - 0.03 x10 3/uL) 0. 06 H Add Manual Diff NO Immature Gran % (0.0 - 2.0 %) 0.7 Nucleated RBC % (0 - 0 %) 0.0 Nucleated RBCs # (Man) (0.0 - 0.1 x10 3/uL) 0.0 0 Laboratory Tests: 09/07 09/07 09/07 09/07 09/07 1554 1137 1127 0618 0510 Chemistry Creatinine (0.6 - 1.3 mg/dL) 1.4 H POC Glucose (70 - 110 MG/DL) 112 H 51 L 42 L 13 5 H Hematology Hgb (12.5 - 16.9 g/dL) 8.4 L Hct (37.5 - 50.7 %) 26.2 L Toxicology Random Vancomycin (mcg/mL) 14.7 09/06 09/06 2226 2108 Chemistry POC Glucose (70 - 110 MG/DL) 192 H 211 H Laboratory Tests: 09/06 09/06 09/06 09/06 09/06 1553 1547 1051 0538 0536 Chemistry Creatinine (0.6 - 1.3 mg/dL) 1.4 H POC Glucose (70 - 110 MG/DL) 119 H 92 124 H Hematology Hgb (12.5 - 16.9 g/dL) 8.6 L Hct (37.5 - 50.7 %) 26.1 L Toxicology Vancomycin Trough (10.0 - 20.0 mcg/mL) 18.9 09/05 1910 Chemistry POC Glucose (70 - 110 MG/DL) 117 H Laboratory Tests: 09/05 09/05 09/04 09/04 09/04 1149 0615 2042 1630 1557 Chemistry Sodium (134 - 147 mEq/L) 134 Potassium (3.4 - 5.0 mEq/L) 5.0 Chloride (100 - 108 mEq/L) 109 H Carbon Dioxide (21 - 33 mEq/l) 21 Anion Gap (0 - 20) 9 BUN (7 - 18 mg/dL) 24 H Creatinine (0.6 - 1.3 mg/dL) 1.3 Glomerular Filtr Rate (90 - 95) 63.7 L Glucose (70 - 110 mg/dL) 75 POC Glucose (70 - 110 MG/DL) 74 103 128 H Calcium (8.0 - 10.5 mg/dL) 7.9 L Hematology Hgb (12.5 - 16.9 g/dL) 7.1 L Hct (37.5 - 50.7 %) 22.7 L Toxicology Vancomycin Trough (10.0 - 20.0 mcg/mL) 12.8 Microbiology: Date/Time Procedure - Status Source Growth 09/04 1739 Occult Blood - COMP STOOL Recent Impressions: RADIOLOGY - XR ABDOMEN 1V (KUB) 09/04 1648 Report Impression - Status: SIGNED Entered: 09/04/2022 1757 IMPRESSION: Benign appearance of the abdomen. Impression By: [email or web address] - Hakeem Soto ULTRASOUND - DUP VEIN UNI/LTD 09/05 1146 Report Impression - Status: SIGNED Entered: 09/05/2022 1333 IMPRESSION: 1. No evidence of deep vein thrombosis. 2. Complex heterogeneous hypoechoic fluid collec tion in the left calf region measuring 8.4 x 2.8 x 2.5 cm; there is no internal vascularity or peripheral hyperemia. May represe nt a hematoma. Impression By: [email or web address] - Mert Ga M.D. RADIOLOGY - XR CHEST 1 V 09/05 1432 Report Impression - Status: SIGNED Entered: 09/05/2022 1515 IMPRESSION: Minimal bibasilar pulmonary opacities Impression By: TipTDO - Hakeem Perez Laboratory Tests: 09/04 09/04 09/04 09/04 09/04 1630 1557 1100 1031 0816 Chemistry POC Glucose (70 - 110 MG/DL) 128 H 107 99 Hematology Hgb (12.5 - 16.9 g/dL) 7.7 L Hct (37.5 - 50.7 %) 23.7 L Toxicology Vancomycin Trough (10.0 - 20.0 mcg/mL) 12.8 09/04 09/04 09/03 09/03 0721 0540 1944 1836 Chemistry POC Glucose (70 - 110 MG/DL) 87 124 H Hematology Hgb (12.5 - 16.9 g/dL) 6.8 L Hct (37.5 - 50.7 %) 21.2 L Toxicology Vancomycin Peak (30 - 40 MCG/ML) 27.4 L Microbiology: Date/Time Procedure - Status Source Growth 09/04 1037 Occult Blood - COLB STOOL 1.Diabetes mellitus type 2 uncontrolled complica tions. 2. 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 4. Sepsis 5. Prostate abscess. 6. Anemia Blood sugar 156-213 mg/dL.H/H 8.6/26.1 Adjust insulin dose. PT and OT. Electronically Signed by Braxton Chapin MD on at 1752 RPT #:[id number] END OF REPORT 2022-09-10 15:59:00-00:[address] [facility] ([facility]) Infectious Dis. Progress Note REPORT#:[id number] REPORT STATUS: Signed DATE:09/10/22 TIME: 1559 PATIENT: KARMA ROWLAND UNIT #: [id number] ROOM/BED: [place] [id number] : 63 AGE: 56 SEX: M ATTEND: Fredy Vences MD ADM AUTHOR: Merry Wloff MD * ALL edits or amendments must be made on the [employer]/computer document * Subjective HPI: PT is a 56yr old male with h istory of diabetes mellitus type 2, hypertension who was admitted with altered mental status and righ t-sided foot infection. According to him, he noticed a blister on his right foot around 3 days prior to presentation. His foot got progressively more sw ollen and erythema extended proximally to his lateral foot and ankle. CT abd omen and pelvis with contrast is concerning for possible prostate abscess. CT of lower extremity without contrast shows extensive sof t tissue edema with mottled gas in the subcutaneous and intramuscular compartments of the foot, comp atible with gas-forming infection. Patient's blood cultures have come ba ck positive for MRSA in 2 out of 2 sets. PT has had persistent (+)Ve cx for MR FREITAS 08/18- 08/22. He underwent a debridement of his foot on 08/19 and cx g rew MRSA. PT was started on Vancomycin and clindamycin on 08/18. His MRI showed a prosta te abscess. 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 Pt underwent a transrectal aspiration and unroofing of prostate abscess 08/26 and cx grew Citrobacter, Enterococcus, MRSA. 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 JIMENA done 09/02. Pt was tr ansferred to Rehab on 09/02. 09/08 doing well, no changes overnight, plan for EGD/colon today 09/09 doing well, dressing changed from r ight BKA; rob intact, no drainage, no erythema no swelling 09/10 doing well, doing well, NAD Patient reports: No: cough, diarrhea, fever, headache, nausea, sh ortness of breath. Portions of this section wer e scribed by Jill Quintero on 09/10/22 at 1604 Objective General VS/I O: Vital Signs Date Temp Pulse Resp B/P B/P Mean Pulse Ox FiO2 09/09-09/10 97.3-98.2 80-84 17-18 146-165/71-83 96.5-110.6 95-97 Last Documented: Result Date Time Pulse Ox 96 09/10 0710 B/P 147/71 09/10 0710 B/P Mean 96.5 09/10 0710 O2 Delivery Room air 09/10 0710 Temp 98.2 09/10 0710 Pulse 80 09/10 0710 Resp 18 09/10 0710 O2 Flow Rate 2 09/08 1322 Vital Signs: Date Time Temp Pulse Resp B/P B/P Pulse O2 O2 F low FiO2 Mean Ox Delivery Rate 09/10 0710 98.2 80 18 147/71 96.5 96 Room air 09/09 2334 97.5 82 17 146/73 97.2 97 Room air 09/09 2116 84 95 Room air 09/09 1852 97.3 82 17 165/83 110.6 24 hour I O ending at 0700: 09/10 0700 09/09 1900 Intake Total 715 Output Total Balance 715 Intake, Oral 715 PATIENT WEIGHT: Weight (lb): 165 Weight (oz): 5.55 Weight (kg): 75.000 Antibiotic start date: Antibiotic: vancomycin Start Date:09/03 Antibiotic: daptomycin Start Date:08/28-09/03 Antibiotic: cefepime Start Date:09/01- Antibiotic: merrem Start Date:08/27-09/01 Physical Exam General appearance: alert, awake, oriented Head/Eyes: atraumatic, clear cornea, EOMI, felisa l conjunctiva/sclera, normal eyelids/periorb, normocephalic, PERRL ENT: moist mucosal membranes, normal dentition Neck: full range of motion Cardiovascular: normal heart sounds, regular rat e rhythm Respiratory: clear to auscultation, aerating wel l Abdomen: non-tender, normal bowel sounds, soft Extremities: moves all, right BKA Left foot woun d +dressing in place 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 X 3 Considered stroke alert: no Skin: dry, intact Results Findings/Data: Laboratory Tests 09/10 09/10 09/10 09/09 09/09 [facility] 0545 0541 1911 1606 Chemistry Sodium (134 - 147 mEq/L) 135 Potassium (3.4 - 5.0 mEq/L) 4.2 Chloride (100 - 108 mEq/L) 107 Carbon Dioxide (21 - 33 mEq/l) 21 Anion Gap (0 - 20) 11 BUN (7 - 18 mg/dL) 25 H Creatinine (0.6 - 1.3 mg/dL) 1.9 H Glomerular Filtr Rate (90 - 95) 40.4 L Glucose (70 - 110 mg/dL) 156 H POC Glucose (70 - 110 MG/DL) 213 H 154 H 102 10 9 Calcium (8.0 - 10.5 mg/dL) 8.3 Phosphorus (2.5 - 4.9 MG/DL) 4.6 Magnesium (1.80 - 2.40 mg/dL) 1.89 Laboratory Tests 09/10 0545 Hematology WBC (4.5 - 11.0 x10 3/uL) 8.6 RBC (4.00 - 5.60 x10 6/uL) 3.08 L Hgb (12.5 - 16.9 g/dL) 8.6 L Hct (37.5 - 50.7 %) 26.7 L MCV (81.0 - 99.0 fL) 86.7 MCH (27.0 - 33.0 pg) 27.9 MCHC (33.0 - 37.0 g/dL) 32.2 L RDW (11.5 - 14.5 %) 13.8 Plt Count (150 - 400 x10 3/uL) 265 MPV (7.0 - 9.0 fL) 9.6 H Neut % (Auto) (56.0 - 77.0 %) 69.4 Lymph % (Auto) (14.0 - 32.0 %) 15.5 Boundary % (Auto) (4.8 - 9.0 %) 8.5 Eos % (Auto) (0.3 - 3.7 %) 5.5 H Baso % (Auto) (0.0 - 2.0 %) 0.4 Neut # (Auto) (2.0 - 7.6 x10 3/uL) 5.94 Lymph # (Auto) (1.0 - 3.8 x10 3/uL) 1.33 Boundary # (Auto) (0.1 - 0.8 x10 3/uL) 0.73 Eos # (Auto) (0.0 - 0.2 x10 3/uL) 0.47 H Baso # (Auto) (0.0 - 0.2 x10 3/uL) 0.03 Abs Immat Gran (auto) (0.00 - 0.03 x10 3/uL) 0 .06 H Add Manual Diff NO Immature Gran % (0.0 - 2.0 %) 0.7 Nucleated RBC % (0 - 0 %) 0.0 Nucleated RBCs # (Man) (0.0 - 0.1 x10 3/uL) 0.0 0 Laboratory Tests 09/10 1430 Toxicology Random Vancomycin (mcg/mL) 15.7 Laboratory Tests: 09/10 09/10 09/10 09/10 1430 [facility] 0545 0541 Chemistry Sodium (134 - 147 mEq/L) 135 Potassium (3.4 - 5.0 mEq/L) 4.2 Chloride (100 - 108 mEq/L) 107 Carbon Dioxide (21 - 33 mEq/l) 21 Anion Gap (0 - 20) 11 BUN (7 - 18 mg/dL) 25 H Creatinine (0.6 - 1.3 mg/dL) 1.9 H Glomerular Filtr Rate (90 - 95) 40.4 L Glucose (70 - 110 mg/dL) 156 H POC Glucose (70 - 110 MG/DL) 213 H 154 H Calcium (8.0 - 10.5 mg/dL) 8.3 Phosphorus (2.5 - 4.9 MG/DL) 4.6 Magnesium (1.80 - 2.40 mg/dL) 1.89 Hematology WBC (4.5 - 11.0 x10 3/uL) 8.6 RBC (4.00 - 5.60 x10 6/uL) 3.08 L Hgb (12.5 - 16.9 g/dL) 8.6 L Hct (37.5 - 50.7 %) 26.7 L MCV (81.0 - 99.0 fL) 86.7 MCH (27.0 - 33.0 pg) 27.9 MCHC (33.0 - 37.0 g/dL) 32.2 L RDW (11.5 - 14.5 %) 13.8 Plt Count (150 - 400 x10 3/uL) 265 MPV (7.0 - 9.0 fL) 9.6 H Neut % (Auto) (56.0 - 77.0 %) 69.4 Lymph % (Auto) (14.0 - 32.0 %) 15.5 Boundary % (Auto) (4.8 - 9.0 %) 8.5 Eos % (Auto) (0.3 - 3.7 %) 5.5 H Baso % (Auto) (0.0 - 2.0 %) 0.4 Neut # (Auto) (2.0 - 7.6 x10 3/uL) 5.94 Lymph # (Auto) (1.0 - 3.8 x10 3/uL) 1.33 Boundary # (Auto) (0.1 - 0.8 x10 3/uL) 0.73 Eos # (Auto) (0.0 - 0.2 x10 3/uL) 0.47 H Baso # (Auto) (0.0 - 0.2 x10 3/uL) 0.03 Abs Immat Gran (auto) (0.00 - 0.03 x10 3/uL) 0 .06 H Add Manual Diff NO Immature Gran % (0.0 - 2.0 %) 0.7 Nucleated RBC % (0 - 0 %) 0.0 Nucleated RBCs # (Man) (0.0 - 0.1 x10 3/uL) 0.0 0 Toxicology Random Vancomycin (mcg/mL) 15.7 09/09 09/09 09/09 09/09 09/09 1911 1606 1526 1403 1049 Chemistry POC Glucose (70 - 110 MG/DL) 102 109 30 L 90 Toxicology Random Vancomycin (mcg/mL) 15.4 09/09 09/09 09/08 09/08 0524 0500 2040 1955 Chemistry Sodium (134 - 147 mEq/L) 136 Potassium (3.4 - 5.0 mEq/L) 4.2 Chloride (100 - 108 mEq/L) 107 Carbon Dioxide (21 - 33 mEq/l) 22 Anion Gap (0 - 20) 11 BUN (7 - 18 mg/dL) 23 H Creatinine (0.6 - 1.3 mg/dL) 1.5 H Glomerular Filtr Rate (90 - 95) 53.6 L Glucose (70 - 110 mg/dL) 125 H POC Glucose (70 - 110 MG/DL) 128 H 106 Calcium (8.0 - 10.5 mg/dL) 8.2 Phosphorus (2.5 - 4.9 MG/DL) 4.0 Magnesium (1.80 - 2.40 mg/dL) 1.89 Hematology WBC (4.5 - 11.0 x10 3/uL) 9.2 RBC (4.00 - 5.60 x10 6/uL) 3.01 L Hgb (12.5 - 16.9 g/dL) 8.5 L Hct (37.5 - 50.7 %) 25.9 L MCV (81.0 - 99.0 fL) 86.0 MCH (27.0 - 33.0 pg) 28.2 MCHC (33.0 - 37.0 g/dL) 32.8 L RDW (11.5 - 14.5 %) 13.8 Plt Count (150 - 400 x10 3/uL) 263 MPV (7.0 - 9.0 fL) 9.7 H Neut % (Auto) (56.0 - 77.0 %) 69.1 Lymph % (Auto) (14.0 - 32.0 %) 16.1 Boundary % (Auto) (4.8 - 9.0 %) 9.2 H Eos % (Auto) (0.3 - 3.7 %) 4.7 H Baso % (Auto) (0.0 - 2.0 %) 0.4 Neut # (Auto) (2.0 - 7.6 x10 3/uL) 6.38 Lymph # (Auto) (1.0 - 3.8 x10 3/uL) 1.49 Boundary # (Auto) (0.1 - 0.8 x10 3/uL) 0.85 H Eos # (Auto) (0.0 - 0.2 x10 3/uL) 0.43 H Baso # (Auto) (0.0 - 0.2 x10 3/uL) 0.04 Abs Immat Gran (auto) (0.00 - 0.03 x10 3/uL) 0. 05 H Add Manual Diff NO Immature Gran % (0.0 - 2.0 %) 0.5 Nucleated RBC % (0 - 0 %) 0.0 Nucleated RBCs # (Man) (0.0 - 0.1 x10 3/uL) 0.0 0 Haptoglobin (29 - 370 mg/dL) 292 09/08 09/08 1828 1611 Chemistry POC Glucose (70 - 110 MG/DL) 120 H Iron (35 - 150 mcg/dL) 10 L TIBC (260 - 445 mcg/dL) 138 L % Saturation (14 - 34 %) 7.2 L Unsat Iron Binding (mcg/dL) 128 Ferritin (23.9 - 336.2 ng/mL) 700.5 H Lactate Dehydrogenase (87 - 241 IUnits/L) 193 Hematology Retic Count (auto) (0.3 - 2.3 %) 1.3 Recent Impressions: ULTRASOUND - US RETROPERITONEAL COM 09/10 1311 Report Impression - Status: SIGNED Entered: 09/10/2022 1503 IMPRESSION: No acute findings. Impression By: Hakeem Jacobo Medication(s) Ordered: Anti-Infective Agents Sig/Jan Start time Last Medication Dose Route Stop Time Status Admin Vancomycin HCl 500 MG ONCE ONE 09/10 1600 AC Sodium Chloride 100 ML IV 09/10 1659 Cefepime HCl 1 GM Q8H 09/10 1500 AC 09/10 Sodium Chloride 10 ML IV 09/13 2359 1410 Vancomycin HCl 500 MG ONCE ONE 09/09 1530 DC Sodium Chloride 100 ML IV 09/09 1629 1553 Miscellaneous 1 EACH ASDIR 09/03 0130 CKD Information IV 10/03 0129 Cefepime HCl 1 GM Q6H 09/02 2100 DC 09/10 Sodium Chloride 10 ML IV 09/13 2059 0841 Blood Formation,Coagulation Sig/Jan Start time Last Medication Dose Route Stop Time Status Admin Ferric Sodium 125 MG DAILY 09/09 0900 AC 09/10 Gluconate Complex IV 09/16 0959 0837 Sodium Chloride 100 ML Heparin Sodium 5,000 UNIT Q8HR 09/02 2200 AC SUBQ 10/02 2159 1409 Cardiovascular Drugs Sig/Jan Start time Last Medication Dose Route Stop Time Status Admin Carvedilol 12.5 MG C BK DIN 09/09 0800 AC 09/10 PO 10/08 0759 0839 Hydralazine HCl 10 MG Q6H PRN PRN 09/01 1330 AC IV 10/01 1329 Central Nervous System Agents Sig/Jan Start time Last Medication Dose Route Stop Time Status Admin Gabapentin 100 MG Q8HR 09/10 1400 AC 09/10 PO 10/10 1359 1410 Hydromorphone HCl 0.5 MG Q12H PRN PRN 09/10 071 5 AC IV 09/21 1300 Oxycodone/ 2 TAB Q4H PRN PRN 09/10 0715 AC 08/23 9 Acetaminophen PO 10/10 1300 1359 Hydromorphone HCl 0.5 MG Q6H PRN PRN 09/08 1345 DC 09/09 IV 09/21 1300 2124 Amitriptyline HCl 25 MG BEDTIME 09/04 2100 AC 09/09 PO 10/04 2059 2120 Hydrocodone Bitart/ 1 TAB Q4H PRN PRN 09/03 140 0 DC 09/09 Acetaminophen PO 10/18 1300 2309 Acetaminophen 650 MG Q6H PRN PRN 09/01 1330 AC PO 10/01 1329 Electrolytic, Caloric, And Daniel Sig/Jan Start time Last Medication Dose Route Stop Time Status Admin Furosemide 20 MG BLOOD-DOSE BETWEEN 09/05 1245 CKD IV 10/05 1244 Sodium Chloride 10 ML ASDIR 09/05 1245 AC IV 10/05 1244 Furosemide 20 MG DAILY 09/05 0900 AC 09/10 PO 10/05 0859 0840 Sodium Chloride 10 ML ASDIR PRN 09/05 0630 AC 0 09/10 IV 10/05 0629 0842 Sterile Water See Dose ASDIR PRN 09/03 2030 AC Insts (1) IRR 10/03 202 Dextrose/Water 125 ML ASDIR PRN 09/03 1515 CKD IV 10/03 1514 Dextrose/Water 250 ML ASDIR PRN 09/03 1515 CKD 09/09 IV 10/03 1514 1529 Gastrointestinal Drugs Sig/Jan Start time Last Medication Dose Route Stop Time Status Admin Pantoprazole Sodium 40 MG Q12HR 09/05 0900 AC 0 09/10 IV 10/05 0859 0841 Polyethylene Glycol 17 GM DAILY 09/05 09 AC 09/07 PO 10/05 0859 0849 Sennosides 8.6 MG DAILY 09/05 09 AC 09/10 PO 10/05 0859 0838 Bisacodyl 10 MG DAILY PRN PRN 09/01 1330 AC RECTAL 10/01 1329 Docusate Sodium 100 MG Q12H PRN PRN 09/01 1330 AC PO 10/01 1329 Ondansetron HCl 4 MG Q6H PRN PRN 09/01 1330 AC IV 10/01 1329 Hormones And Synthetic Substit Sig/Jan Start time Last Medication Dose Route Stop Time Status Admin Insulin Glargine 5 UNIT BEDTIME 09/07 2100 AC 0 09/07 SUBQ 10/07 205 2233 Insulin Human Lispro 0 AC HS 09/03 1630 AC 08/23 9 SUBQ 10/03 1629 1134 Glucagon 1 MG ASDIR PRN 09/03 1515 AC IM 10/03 1514 Insulin Human Lispro 5 UNIT AC 09/03 0730 AC SUBQ 10/03 0729 1134 Local Anesthetics (Parenteral) Sig/Jan Start time Last Medication Dose Route Stop Time Status Admin Lidocaine 1 PATCH DAILY 09/03 09 AC 09/10 TOPICAL 10/03 0859 0840 Skin And Mucous Membrane Agent Sig/Jan Start time Last Medication Dose Route Stop Time Status Admin Zinc Oxide 1 APPLIC DAILY 09/04 09 AC 09/10 TOPICAL 10/04 0859 0842 Vitamins Sig/Jan Start time Last Medication Dose Route Stop Time Status Admin Folic Acid 2 MG DAILY 09/09 09 AC 09/10 PO 10/09 0859 0838 Multivitamins 1 TAB DAILY 09/09 09 AC 09/10 PO 10/09 0859 0838 Dose Instructions: (1)Sterile Water: DRESSING CHANGE Recent Impressions: ULTRASOUND - US RETROPERITONEAL [facility] 09/10 1311 Report Impression - Status: SIGNED Entered: 09/10/2022 1503 IMPRESSION: No acute findings. Impression By: Hakeem Jacobo Portions of this section wer e scribed by Jill Quintero on 09/10/22 at 1604 Treatment Prophylaxis Treatment Prophylaxis Lines: PICC CVC/PICC documentation: The data below has been imported from nursing do cumentation. Any exceptions have been noted below under Provider comments. CVC/PICC insertion date/time : PICC single lumen Arm upper Right Inserted 1720 Provider comments on imported nursing data: [] Portions of this section janice kendall scribed by Jill Quintero on 09/10/22 at 1604 Diagnosis, Assessment Plan Free Text A P: *MRSA bacteremia -Initial blood cultures from 08/18/2022 positive for MRSA in 2 out of 2 sets. -Repeat blood cultures 08/21/2022 are already po sitive for MRSA in 2 out of 2 sets, suggesting persistent high-grade bacteremi a. -TTE 08/18/2022 negative for any obvious vegetat ions. -08/28 neg -JIMENA 09/02 neg *Prostatic abscess -s/p transrectal aspiration and unroofing on 08/26 -cx MRSA, citrobacter (r-cefazolin) Enterococcus raffinosus (S-amp,pcn, vancomycin), bacteriodes *ERIKA *Hyponatremia *Diabetic neuropathy *Diabetes mellitus type 2 *Hypertension *anemia 09/08 -cont on Cefepime and vancomycin til 5/3 for kellen atment of Prostate abscess -follow esr and crp -EGD today 09/09 -on cefepime and vancomycin til 5/3 for treatmen t of prostate abscess 09/10 on cefepime and vancomycin til 5/3 for treatment of prostate abscess check esr and crp in am Consultants: cardiology, endocrinology, hospital ist, infectious disease, podiatry Portions of this section janice kendall scribed by Jill Quintero on 09/10/22 at 1604 at 2809 RPT #:[id number] END OF REPORT 2022-09-10 15:50:00-00:[address] [facility] ([facility]) Pharmacy Prog.Note-Vancomycin REPORT#:[id number] REPORT STATUS: Signed DATE:09/10/22 TIME: 1550 PATIENT: KARMA ROWLAND UNIT #: [id number] ROOM/BED: [address]: 63 AGE: 56 SEX: M ATTEND: Fredy Vences MD ADM AUTHOR: Joselyn Stock [facility] * ALL edits or amendments must be made on the el [employer]/computer document * Vancomycin Vancomycin Medication Therapy Goal: Random 15-20 mcg/mL Indication for treatment: OM and MRSA Bacteremia VS and I/O: Vital Signs Date Temp Pulse Resp B/P B/P Mean Pulse Ox FiO2 09/07-09/10 97.3-98.8 79-98 10-20 131-177/64-90 87.1-118.8 94-99 72 hours ending at 0700 09/10 0700 09/09 1900 09/09 0700 09/08 1900 09/07 0700 1900 Intake 715 250.00 2000 Total Output 850 600 Total Balance 715 -850 250.00 1400 Intake, IV 250.00 Intake, 715 2000 Oral Number 1 2 Bowel Movements Number 0 0 Incontinen t Voids Number 0 0 Voids Output, 850 600 Urine 72 Hour I O Total 09/10 0709/09 0700 09/08 0700 Intake Total 715 250.00 2000 Output Total 850 600 Balance 715 -600.00 1400 Labs: Laboratory Tests: 09/10 09/09 09/08 1430 1403 1045 Toxicology Random Vancomycin (mcg/mL) 15.7 15.4 15.8 Laboratory Test : 09/10 09/09 09/08 0545 0500 0615 Chemistry BUN (7 - 18 mg/dL) 25 H 23 H 22 H Creatinine (0.6 - 1.3 mg/dL) 1.9 H 1.5 H 1.4 H Hematology WBC (4.5 - 11.0 x10 3/uL) 8.6 9.2 9.1 Treatment plan: consult Regimen: 56yo male with PMH of T2DM and HTN who was admit carlos with AMS and right-sided foot infection. According to him, he noticed a blister on his right foot around 3 days prior to presentation on 08/18. His foot g ot progressively more swollen and erythema extended proximally to his lateral foot and ankle. Patient's BCx had persistent BCx for MRSA 08/18- 08/22. He underwent a debridement of his foot on 08/19 and Cx grew MRSA. Pt was started on Vancomycin and clindamycin on 08/18. Patient is s/p ICU stay with merrem/daptomycin. ID adjusted regimen to cefepime/ vancomycin. Pharmacy consulted to dose vancomyci n. Consulting provider: Merry Wolff Indication: Osteomyelitis of the Talus, Calcaneu s, and Navicular Bone; MRSA Bacteremia; Prostatic Abscess Goal Random: 15-20 mcg/mL Concomitant Abx: Cefepime Duration of Therapy: 09/24/22 Assessment: Labs/Vitals * Afebrile/24hrs, WBC 8.6, BUN/SCr 25/1.9, UOP/2 4hrs not documented Micro * MRSA nares (09/03) positive * WCx (08/26) Citrobacter Farmeri (R Ampicillin, Cefazolin), Enterococcus Raffinosus (R Tetracycline), MRSA Imaging * CT Abd/Pelvis (08/18) possible abscess * RLE MRI (08/21) osteomyelitis of the talus, ca lcaneus, navicular bone Level * Peak (09/03) 27.7 mcg/mL; Trough (09/04) 12.8 mcg/mL; Calculated AUC 462 mcg* hr/mL, therefore tehrapeutic on Vancomycin 1gm I V q24h * Trough (09/06) * Random (09/07 @0510) 14.7 mcg/mL; s/p Vanc 1gm IV x1 09/05 @2009; Calculated half-life = 35.8hrs * Random (09/08 @1045) 15.8 mcg/mL; s/p Vanc 750 mg IV x1 09/07 @1102 * Given patient's renal func tion has been elevated, yet stable, Vancomycin 500mg IV q24h was initiated * Random (09/09 @1403) 15.4 mcg/mL; s/p Vanc 500 mg IV x1 09/08 @1403 * Random (09/09 @1430) 15.7 mcg/mL; s/p Vanc 500 mg IV x1 09/09 @1553 Plan: * Patient's renal function worsened today, there fore will continue to dose by random level; will give Vancomycin 500mg IV x1 * Draw random level 09/11 @1500 at 1553 [facility] #:[id number] END OF REPORT 2022-09-10 14:42:00-00:00 [facility] Gastroenterology Progress Note REPORT#:[id number] REPORT STATUS: Signed DATE:09/10/22 TIME: 1442 PATIENT: KARMA ROWLAND UNIT #: [id number] ROOM/BED: [place] [address] : 63 AGE: 56 SEX: M ATTEND: Fredy Vences MD ADM AUTHOR: Kassie Avitia MD * ALL edits or amendments must be made on the [employer]/computer document * Subjective HPI: Patient is a 56-year-old male with history of di abetes mellitus type 2 and hypertension who was initially admitted for alte red mental status and right- sided foot infection. 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 The p atient is anemic with current Hgb 7.1. He has received a total of 3 un its pRBCs during this hospitalization. KUB on 09/04 was negative for acute GI process. T he patient denies overt GIB, dark tarry stools, nausea, a bdominal pain, or vomiting. He has never had EGD or colonoscopy. 09/06: No complaints today. Hemoglobin stable. No overt GI bleed. Plan for colonoscopy and endoscopy on Thursday 09/07: No complaints today. No overt GI bleed. Pl anning for colonoscopy and endoscopy tomorrow 09/08: EGD mild gastritis. colonoscopy rectal eugenia yp s/p snare. No other abnormalities 09/09: doing well. Seen at the gym. No bleeding. 09/10: Doing well. No bleeding. tolerating diet. Movig bowels Objective Physical Exam HEENT: atraumatic, normocephalic Neck: full range of motion, non-tender Respiratory: symmetric expansion, no distress Abdomen: non-tender, normal bowel sounds, soft, no distention, no guarding Extremities: right BKA Considered stroke alert: no Skin: dry Diagnosis, Assessment Plan Free Text A P: 1. Positive FOBT-and anemia: The patient denies overt GIB, dark tarry stools, nausea, abdominal pain, or vomiting. He is not o n anticoagulation therapy. -Continue PPI. The patient has never had EGD or colonoscopy prior to this admission s/p EGD and colonoscopy. EGD showed mild gastrit is. Colonoscopy showed rectal polyp that was resected by snare. no evidence of bleeding. Pathology of polyp came back as tubular adenoma. recommend repeatin g colonoscopy in 5 years Anemia likely secondary to chronic kidney diseas e. Can consider video capsule endoscopy as outpt Will follow Consultants: cardiology, endocrinology, hospital ist, infectious disease, podiatry at 1444 RPT #:[id number] END OF REPORT 2022-09-10 10:50:00-00:00 [facility]L [facility] Hospitalist Progress Note REPORT#:[id number] REPORT STATUS: Signed DATE:09/10/22 TIME: 1050 PATIENT: KARMA ROWLAND UNIT #: [id number] ROOM/BED: [place] [address] : 63 AGE: 56 SEX: M ATTEND: Fredy Vences MD ADM AUTHOR: Wilbert Ramires MD * ALL edits or amendments must be made on the [employer]/computer document * Subjective Chief complaint: admitted to rehab. participating with therapy Review of Systems All systems rev neg: except as noted Objective General VS/I O: Vital Signs: Date Time Temp Pulse Resp B/P B/P Pulse O2 O2 F low FiO2 Mean Ox Delivery Rate 09/10 0710 98.2 80 18 147/71 96.5 96 Room air 09/09 2334 97.5 82 17 146/73 97.2 97 Room air 09/09 2116 84 95 Room air 09/09 1852 97.3 82 17 165/83 110.6 09/09 1529 97.7 79 18 168/80 109.3 98 Room air 24 hour I O ending at 0700: 09/10 0700 09/09 1900 Intake Total 715 Output Total Balance 715 Intake, Oral 715 PATIENT WEIGHT: Weight (lb): 165 Weight (oz): 5.55 Weight (kg): 75.000 Medications: Active Meds + DC'd Last 24 Hrs Cefepime HCl (MAXIPIME) 1 GM Q8H IV Sodium Chloride (SODIUM CHLORIDE) 10 ML Gabapentin (NEURONTIN) 100 MG Q8HR PO Hydromorphone HCl (DILAUDID) 0.5 MG Q12H PRN PRN IV Oxycodone/Acetaminophen (PERCOCET 5/325MG TAB) 2 TAB Q4H PRN PRN PO Vancomycin HCl (VANCOMYCIN HCL) 500 MG ONCE ONE IV (DC) Sodium Chloride (SODIUM CHLORIDE 0.9% 100 ML) 1 00 ML Ferric Sodium Gluconate Complex (FERRLECIT) 125 MG DAILY IV Sodium Chloride (SODIUM CHLORIDE 0.9%) 100 ML Folic Acid (FOLIC ACID) 2 MG DAILY PO Multivitamins (TAB-A-MOHAN) 1 TAB DAILY PO Carvedilol (COREG) 12.5 MG C BK DIN PO Hydromorphone HCl (DILAUDID) 0.5 MG Q6H PRN PRN IV (DC) Vancomycin HCl (VANCOMYCIN HCL) 500 MG Q24H IV ( DC) Sodium Chloride (SODIUM CHLORIDE 0.9% 100 ML) 1 00 ML Insulin Glargine (Lantus/Semglee) 5 UNIT BEDTIME SUBQ Furosemide (LASIX 20MG INJ) 20 MG BLOOD-DOSE BET WEEN IV (CKD) Sodium Chloride (SODIUM CHLORIDE) 10 ML ASDIR IV Furosemide (LASIX) 20 MG DAILY PO Pantoprazole Sodium (PROTONIX) 40 MG Q12HR IV Polyethylene Glycol (MIRALAX) 17 GM DAILY PO Sennosides (Senna Lax 8.6 MG TABLET) 8.6 MG MADALYN Y PO Sodium Chloride (SODIUM CHLORIDE) 10 ML ASDIR P RN IV Amitriptyline HCl (ELAVIL) 25 MG BEDTIME PO Zinc Oxide (ZINC OXIDE 30 GM OINTMENT) 1 APPLIC DAILY TOPICAL Sterile Water (WATER FOR IRRIGATION) DRESSING CH GELACIO ASDIR PRN IRR Insulin Human Lispro (HUMALOG) 0 AC HS SUBQ Dextrose/Water (DEXTROSE 10% IN WATER) 125 ML DIR PRN IV (CKD) Dextrose/Water (DEXTROSE 10% IN WATER) 250 ML DIR PRN IV (CKD) Glucagon (GLUCAGON) 1 MG ASDIR PRN IM Hydrocodone Bitart/Acetaminophen (NORCO 10/325) 1 TAB Q4H PRN PRN PO (DC ) Lidocaine (LIDODERM) 1 PATCH DAILY TOPICAL Insulin Human Lispro (HUMALOG) 5 UNIT AC SUBQ Miscellaneous Information (VANCOMYCIN PHARMACY T O DOSE) 1 EACH ASDIR IV (CKD) Heparin Sodium (HEPARIN 5000 UNITS/ML) 5,000 UNI T Q8HR SUBQ Cefepime HCl (MAXIPIME) 1 GM Q6H IV (DC) Sodium Chloride (SODIUM CHLORIDE) 10 ML Acetaminophen (TYLENOL) 650 MG Q6H PRN PRN PO Bisacodyl (DULCOLAX) 10 MG DAILY PRN PRN RECTAL Docusate Sodium (COLACE) 100 MG Q12H PRN PRN PO Hydralazine HCl (APRESOLINE) 10 MG Q6H PRN PRN I V Ondansetron HCl (ZOFRAN) 4 MG Q6H PRN PRN IV Physical Exam General appearance: alert, awake, oriented Head/Eyes: atraumatic, clear cornea Neck: full range of motion, non-tender Cardiovascular: normal capillary refill, normal heart sounds, regular rate rhythm Respiratory: aerating well, clear to auscultatio n Abdomen: non-tender, normal bowel sounds Genitourinary: no flank pain Extremities: moves all, normal capillary refill Musculoskeletal: normal inspection, painless ran ge of motion 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 X 3, 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 Considered stroke alert: no Skin: dry, intact Psychiatry: normal affect, normal judgment/insig ht Results Findings/Data: Laboratory Tests 09/10 09/10 09/10 09/09 09/09 1007 0545 0541 1911 1606 Chemistry Sodium (134 - 147 mEq/L) 135 Potassium (3.4 - 5.0 mEq/L) 4.2 Chloride (100 - 108 mEq/L) 107 Carbon Dioxide (21 - 33 mEq/l) 21 Anion Gap (0 - 20) 11 BUN (7 - 18 mg/dL) 25 H Creatinine (0.6 - 1.3 mg/dL) 1.9 H Glomerular Filtr Rate (90 - 95) 40.4 L Glucose (70 - 110 mg/dL) 156 H POC Glucose (70 - 110 MG/DL) 213 H 154 H 102 10 9 Calcium (8.0 - 10.5 mg/dL) 8.3 Phosphorus (2.5 - 4.9 MG/DL) 4.6 Magnesium (1.80 - 2.40 mg/dL) 1.89 09/09 1526 Chemistry POC Glucose (70 - 110 MG/DL) 30 L Laboratory Tests 09/10 0545 Hematology WBC (4.5 - 11.0 x10 3/uL) 8.6 RBC (4.00 - 5.60 x10 6/uL) 3.08 L Hgb (12.5 - 16.9 g/dL) 8.6 L Hct (37.5 - 50.7 %) 26.7 L MCV (81.0 - 99.0 fL) 86.7 MCH (27.0 - 33.0 pg) 27.9 MCHC (33.0 - 37.0 g/dL) 32.2 L RDW (11.5 - 14.5 %) 13.8 Plt Count (150 - 400 x10 3/uL) 265 MPV (7.0 - 9.0 fL) 9.6 H Neut % (Auto) (56.0 - 77.0 %) 69.4 Lymph % (Auto) (14.0 - 32.0 %) 15.5 Boundary % (Auto) (4.8 - 9.0 %) 8.5 Eos % (Auto) (0.3 - 3.7 %) 5.5 H Baso % (Auto) (0.0 - 2.0 %) 0.4 Neut # (Auto) (2.0 - 7.6 x10 3/uL) 5.94 Lymph # (Auto) (1.0 - 3.8 x10 3/uL) 1.33 Boundary # (Auto) (0.1 - 0.8 x10 3/uL) 0.73 Eos # (Auto) (0.0 - 0.2 x10 3/uL) 0.47 H Baso # (Auto) (0.0 - 0.2 x10 3/uL) 0.03 Abs Immat Gran (auto) (0.00 - 0.03 x10 3/uL) 0. 06 H Add Manual Diff NO Immature Gran % (0.0 - 2.0 %) 0.7 Nucleated RBC % (0 - 0 %) 0.0 Nucleated RBCs # (Man) (0.0 - 0.1 x10 3/uL) 0. 00 Laboratory Tests 09/09 1403 Toxicology Random Vancomycin (mcg/mL) 15.4 Diagnosis, Assessment Plan Consultants: cardiology, endocrinology, hospital ist, infectious disease, podiatry Free Text DxA P Notes Free text DxA P notes: Gangrene of right foot s/p Below- knee amputatio n Prostate abscess MRSA bacteremia Hx of Diabetes, Diabetic neuropathy HTN PLANS: Continue with ABx as dierected- currently on Dap tomycin and Cefepime Continue with PT/OT per primary Fall precautions Nutritional support pain control fall precautions bowel regimen Wound care as directed Hepain PPX Continue with supportive / care follow hgb closely and transfuse as needed blood sugars dipping down - endo following labs noted. watch Hgb IV iron BP remains not at target. increase Coreg Electronically Signed by Wilbert Ramires MD on at 1130 RPT #:[id number] END OF REPORT 2022-09-10 10:36:00-00:00 [facility]) Cardiology Progress Note REPORT#:[id number] REPORT STATUS: Signed DATE:09/10/22 TIME: 1036 PATIENT: KARMA ROWLAND UNIT #: [id number] ROOM/BED: [place] [address] : 63 AGE: 56 SEX: M ATTEND: Fredy Vences MD ADM AUTHOR: Rohit Benitez CLAY MILLER * ALL edits or amendments must be made on the [employer]/computer document * Rohit Benitez 09/10/22 1036: Subjective Chief complaint: weakness Free Text Subj Notes Free Text Subj Notes: Patient seen and evaluated in the gym. O verall doing well without shortness of breath or chest pain. Continued to have lower ex tremity edema. Objective General VS/I O: 24 hour I O ending at 0700: 09/10 0700 09/09 1900 Intake Total 715 Output Total Balance 715 Intake, Oral 715 Vital Signs: Date Time Temp Pulse Resp B/P B/P Pulse O2 O2 F low FiO2 Mean Ox Delivery Rate 09/10 0710 98.2 80 18 147/71 96.5 96 Room air 09/09 2334 97.5 82 17 146/73 97.2 97 Room air 09/09 2116 84 95 Room air 09/09 1852 97.3 82 17 165/83 110.6 09/09 1529 97.7 79 18 168/80 109.3 98 Room air PATIENT WEIGHT: Weight (lb): 165 Weight (oz): 5.55 Weight (kg): 75.000 Medications: Active Meds + DC'd Last 24 Hrs Cefepime HCl (MAXIPIME) 1 GM Q8H IV Sodium Chloride (SODIUM CHLORIDE) 10 ML Gabapentin (NEURONTIN) 100 MG Q8HR PO Hydromorphone HCl (DILAUDID) 0.5 MG Q12H PRN PRN IV Oxycodone/Acetaminophen (PERCOCET 5/325MG TAB) 2 TAB Q4H PRN PRN PO Vancomycin HCl (VANCOMYCIN HCL) 500 MG ONCE ONE IV (DC) Sodium Chloride (SODIUM CHLORIDE 0.9% 100 ML) 1 00 ML Ferric Sodium Gluconate Complex (FERRLECIT) 125 MG DAILY IV Sodium Chloride (SODIUM CHLORIDE 0.9%) 100 ML Folic Acid (FOLIC ACID) 2 MG DAILY PO Multivitamins (TAB-A-MOHAN) 1 TAB DAILY PO Carvedilol (COREG) 12.5 MG C BK DIN PO Hydromorphone HCl (DILAUDID) 0.5 MG Q6H PRN PRN IV (DC) Vancomycin HCl (VANCOMYCIN HCL) 500 MG Q24H IV ( DC) Sodium Chloride (SODIUM CHLORIDE 0.9% 100 ML) 1 00 ML Insulin Glargine (Lantus/Semglee) 5 UNIT BEDTIME SUBQ Furosemide (LASIX 20MG INJ) 20 MG BLOOD-DOSE BET WEEN IV (CKD) Sodium Chloride (SODIUM CHLORIDE) 10 ML ASDIR IV Furosemide (LASIX) 20 MG DAILY PO Pantoprazole Sodium (PROTONIX) 40 MG Q12HR IV Polyethylene Glycol (MIRALAX) 17 GM DAILY PO Sennosides (Senna Lax 8.6 MG TABLET) 8.6 MG MADALYN Y PO Sodium Chloride (SODIUM CHLORIDE) 10 ML ASDIR NV N IV Amitriptyline HCl (ELAVIL) 25 MG BEDTIME PO Zinc Oxide (ZINC OXIDE 30 GM OINTMENT) 1 APPLIC DAILY TOPICAL Sterile Water (WATER FOR IRRIGATION) DRESSING CH GELACIO ASDIR PRN IRR Insulin Human Lispro (HUMALOG) 0 AC HS SUBQ Dextrose/Water (DEXTROSE 10% IN WATER) 125 ML DIR PRN IV (CKD) Dextrose/Water (DEXTROSE 10% IN WATER) 250 ML DIR PRN IV (CKD) Glucagon (GLUCAGON) 1 MG ASDIR PRN IM Hydrocodone Bitart/Acetaminophen (NORCO 10/325) 1 TAB Q4H PRN PRN PO (DC ) Lidocaine (LIDODERM) 1 PATCH DAILY TOPICAL Insulin Human Lispro (HUMALOG) 5 UNIT AC SUBQ Miscellaneous Information (VANCOMYCIN PHARMACY T O DOSE) 1 EACH ASDIR IV (CKD) Heparin Sodium (HEPARIN 5000 UNITS/ML) 5,000 UNI T Q8HR SUBQ Cefepime HCl (MAXIPIME) 1 GM Q6H IV (DC) Sodium Chloride (SODIUM CHLORIDE) 10 ML Acetaminophen (TYLENOL) 650 MG Q6H PRN PRN PO Bisacodyl (DULCOLAX) 10 MG DAILY PRN PRN RECTAL Docusate Sodium (COLACE) 100 MG Q12H PRN PRN PO Hydralazine HCl (APRESOLINE) 10 MG Q6H PRN PRN I V Ondansetron HCl (ZOFRAN) 4 MG Q6H PRN PRN IV Physical Exam General appearance: alert, awake, oriented Neck: no bruit/NL carotids, no JVD Cardiovascular: CV assessment: regular rate and rhythm, no ecto py, no gallop Respiratory: clear to auscultation, no distress Abdomen: soft, non-tender Lower extremity: LE assessment: edema, normal temperature 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 X 3 Considered stroke alert: no Wound/incision: Location: right bka Psychiatry: normal affect, normal judgment/insig ht, normal mood Results Findings/Data: Laboratory Tests 09/10 09/10 09/10 09/09 09/09 [facility] 0503 8469 1911 1606 Chemistry Sodium (134 - 147 mEq/L) 135 Potassium (3.4 - 5.0 mEq/L) 4.2 Chloride (100 - 108 mEq/L) 107 Carbon Dioxide (21 - 33 mEq/l) 21 Anion Gap (0 - 20) 11 BUN (7 - 18 mg/dL) 25 H Creatinine (0.6 - 1.3 mg/dL) 1.9 H Glomerular Filtr Rate (90 - 95) 40.4 L Glucose (70 - 110 mg/dL) 156 H POC Glucose (70 - 110 MG/DL) 213 H 154 H 102 10 9 Calcium (8.0 - 10.5 mg/dL) 8.3 Phosphorus (2.5 - 4.9 MG/DL) 4.6 Magnesium (1.80 - 2.40 mg/dL) 1.89 09/09 09/09 1526 1049 Chemistry POC Glucose (70 - 110 MG/DL) 30 L 90 Laboratory Tests 09/10 0545 Hematology WBC (4.5 - 11.0 x10 3/uL) 8.6 RBC (4.00 - 5.60 x10 6/uL) 3.08 L Hgb (12.5 - 16.9 g/dL) 8.6 L Hct (37.5 - 50.7 %) 26.7 L MCV (81.0 - 99.0 fL) 86.7 MCH (27.0 - 33.0 pg) 27.9 MCHC (33.0 - 37.0 g/dL) 32.2 L RDW (11.5 - 14.5 %) 13.8 Plt Count (150 - 400 x10 3/uL) 265 MPV (7.0 - 9.0 fL) 9.6 H Neut % (Auto) (56.0 - 77.0 %) 69.4 Lymph % (Auto) (14.0 - 32.0 %) 15.5 Boundary % (Auto) (4.8 - 9.0 %) 8.5 Eos % (Auto) (0.3 - 3.7 %) 5.5 H Baso % (Auto) (0.0 - 2.0 %) 0.4 Neut # (Auto) (2.0 - 7.6 x10 3/uL) 5.94 Lymph # (Auto) (1.0 - 3.8 x10 3/uL) 1.33 Boundary # (Auto) (0.1 - 0.8 x10 3/uL) 0.73 Eos # (Auto) (0.0 - 0.2 x10 3/uL) 0.47 H Baso # (Auto) (0.0 - 0.2 x10 3/uL) 0.03 Abs Immat Gran (auto) (0.00 - 0.03 x10 3/uL) 0. 06 H Add Manual Diff NO Immature Gran % (0.0 - 2.0 %) 0.7 Nucleated RBC % (0 - 0 %) 0.0 Nucleated RBCs # (Man) (0.0 - 0.1 x10 3/uL) 0. 00 Laboratory Tests 09/09 1403 Toxicology Random Vancomycin (mcg/mL) 15.4 Laboratory Tests 09/10 0545 Chemistry Magnesium (1.80 - 2.40 mg/dL) 1.89 Diagnosis, Assessment Plan Consultants: cardiology, endocrinology, hospital ist, infectious disease, podiatry Free Text DxA P Notes Free Text DxA P Notes: Impression: 1. Debility 2. Infected right foot status post BKA 3. Bacteremia 4. Diabetes 5. Hypertension 6. Anemia 07/2022: Echocardiogram with normal LVEF, grade 1 diastolic dysfunction, mildly dilated LA, and no significant valvular abnormal ities Recommendation: Patient initially presented with DKA and sepsis. Diagnosed with right foot infection, underwent I D, now status post BKA. P atient had persistent bacteremia with MRSA, underwent JIMENA with negativ e findings of endocarditis. Patient now transferred to [facility] for physical therapy. Known cardiac history of hypertension and hyperlipide renetta. Vital signs stable. Echocardiogram with normal LVEF, grade 1 diastolic dysfunction, mildly dila carlos LA, and no significant valvular abnormalities. Continue to monitor bloo d pressure trend. Continue wound care and IV antibiotic therapy. Continue P T/OT. Supportive care. 09/04: Patient complaining of shortness of breath, abdominal distention and lower extremity edema. Renal function and electrolytes stable. Will give one-time dose of IV Lasix 40 mg. Blood pressure stable. P ending abdominal x-ray. Monitor intake and output. Check BMP in the morn ing. Supportive care. Plan of care discussed with patient, RN and Dr. Parham. 09/05: Patient responded well to IV Lasix , good urine output and improvement in shortness of breath. Chest x-ray ordered . Currently on Lasix 20 mg p.o. daily. Continue monitor renal function and electrolyte s. Pending lower extremity Doppler for lower extremity edema. Continue PT/O T. Supportive care. Plan of care discussed with patient, RN and Dr. Parham. 09/08: Blood pressure has been elevated, started on Coreg 3.125 mg twice daily. Continue monitor blood pressure trend and adjust medication as needed. Still having left lower extremity edema, venous Dopple r negative for DVT. continue gentle diuresis with Lasix 20 mg p.o. daily. Rec ommend Oralia wrap. Patient remains anemic, plan for EGD/colonoscopy today. Supportive care. Plan of care discussed with patient, family, RN and Dr. Parham . 09/09: Patient doing well status post EGD /colonoscopy, negative findings for GI bleed. Blood pressure improving, increased on Co reg to 12.5 mg twice daily. Elevated creatinine noted, nephrology following. No new cardiac complaint. Continue wound care. Continue PT/OT. Supportive care. Plan of care discussed with patient, RN and Dr. Parham. 09/10: Blood pressure remained stable on current regimen of Coreg. Patient continue to have left lower extremity edema. Cur rently on Lasix 20 mg daily. Creatinine 1.9 today, continue to monito r. Patient's albumin level was 1.3, it is possible that patient's lower extremity edema could be related to hypoalbuminemia leading to third spacing. Contin ue PT/OT. Supportive care. Plan of care discussed with patient, RN and Dr. Parham. Gianni Parham 09/11/22 0807: Diagnosis, Assessment Plan Additional comments: Patient was seen and examined at bedside , agree with above assessment and plan as documented by nurse practitioner. Will follow . Electronically Signed by Rohit Benitez NP on 0 09/10/22 at 1810 at 0823 [id number] #:[id number] END OF REPORT 2022-09-10 07:33:00-00:00 [facility] Neph[facility] Progress Note REPORT#:[id number] REPORT STATUS: Signed DATE:09/10/22 TIME: 732 PATIENT: KARMA ROWLAND UNIT #: [id number] ROOM/BED: [place] [address] : 63 AGE: 56 SEX: M ATTEND: Fredy Vences MD ADM AUTHOR: Barrera Ramírez MD * ALL edits or amendments must be made on the [employer]/computer document * Subjective Chief complaint: Infected foot HPI: Patient seen and evaluated on 09/09/2022, note [facility], records reviewed and orders placed on 09/08/2022, 56-year-old male with history of diabetes mellitus type 2, hypertension and per ipheral vascular disease who was initially admitted to acute care with altered mental status and rig ht foot infection/gangrene, 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 Patient had persistent anemia requiring blood transfusion. H is fecal occult blood was positive and his creatinine was 1.2 and increase d to 1.4 today, laboratories today showed hemoglobin 8.5, platelet 231, blood count 9.1, sodium 135, potassium 4.6, CO2 22, BUN 22, creatinin e 1.4. Renal consult was requested for evaluation management of pako vated BUN and creatinine and if his decreased GFR is contributing to his anemia. Patient reports: Yes: complaints. Comments: Patient seen and evaluated, HPI no change from i nitial, feels okay. Review of Systems Constitutional: Reports: fatigue. Denies: chills, fever. Skin: Denies: rash. Allergy/Immun: Denies: hives, itching. Eyes: Denies: redness, discharge. ENT: Denies: ear drainage, ear ringing. Respiratory: Denies: hemoptysis, SOB. Cardiovascular: Denies: chest pain. Objective General VS/I O: Vital Signs: Date Time Temp Pulse Resp B/P B/P Pulse O2 O2 F low FiO2 Mean Ox Delivery Rate 09/10 0710 36.8 80 18 147/71 96.5 96 Room air 09/09 2334 36.4 82 17 146/73 97.2 97 Room air 09/09 2116 84 95 Room air 09/09 1852 36.3 82 17 165/83 110.6 09/09 1529 36.5 79 18 168/80 109.3 98 Room air 24 hour I O ending at 0700: 09/10 0700 09/09 1900 Intake Total 715 Output Total Balance 715 Intake, Oral 715 PATIENT WEIGHT: Weight (lb): 165 Weight (oz): 5.55 Weight (kg): 75.000 Medications Active Meds + DC'd Last 24 Hrs Gabapentin (NEURONTIN) 100 MG Q8HR PO Hydromorphone HCl (DILAUDID) 0.5 MG Q12H PRN PRN IV Oxycodone/Acetaminophen (PERCOCET 5/325MG TAB) 2 TAB Q4H PRN PRN PO Vancomycin HCl (VANCOMYCIN HCL) 500 MG ONCE ONE IV (DC) Sodium Chloride (SODIUM CHLORIDE 0.9% 100 ML) 1 00 ML Ferric Sodium Gluconate Complex (FERRLECIT) 125 MG DAILY IV Sodium Chloride (SODIUM CHLORIDE 0.9%) 100 ML Folic Acid (FOLIC ACID) 2 MG DAILY PO Multivitamins (TAB-A-MOHAN) 1 TAB DAILY PO Carvedilol (COREG) 12.5 MG C BK DIN PO Hydromorphone HCl (DILAUDID) 0.5 MG Q6H PRN PRN IV (DC) Vancomycin HCl (VANCOMYCIN HCL) 500 MG Q24H IV ( DC) Sodium Chloride (SODIUM CHLORIDE 0.9% 100 ML) 1 00 ML Insulin Glargine (Lantus/Semglee) 5 UNIT BEDTIME SUBQ Furosemide (LASIX 20MG INJ) 20 MG BLOOD-DOSE BET WEEN IV (CKD) Sodium Chloride (SODIUM CHLORIDE) 10 ML ASDIR IV Furosemide (LASIX) 20 MG DAILY PO Pantoprazole Sodium (PROTONIX) 40 MG Q12HR IV Polyethylene Glycol (MIRALAX) 17 GM DAILY PO Sennosides (Senna Lax 8.6 MG TABLET) 8.6 MG MADALYN Y PO Sodium Chloride (SODIUM CHLORIDE) 10 ML ASDIR NV N IV Amitriptyline HCl (ELAVIL) 25 MG BEDTIME PO Mupirocin (BACTROBAN 2% 22 GM OINTMENT) 1 APPLIC BID NASAL (DC) Zinc Oxide (ZINC OXIDE 30 GM OINTMENT) 1 APPLIC DAILY TOPICAL Sterile Water (WATER FOR IRRIGATION) DRESSING CH GELACIO ASDIR PRN IRR Insulin Human Lispro (HUMALOG) 0 AC HS SUBQ Dextrose/Water (DEXTROSE 10% IN WATER) 125 ML DIR PRN IV (CKD) Dextrose/Water (DEXTROSE 10% IN WATER) 250 ML DIR PRN IV (CKD) Glucagon (GLUCAGON) 1 MG ASDIR PRN IM Hydrocodone Bitart/Acetaminophen (NORCO 10/325) 1 TAB Q4H PRN PRN PO (DC ) Lidocaine (LIDODERM) 1 PATCH DAILY TOPICAL Insulin Human Lispro (HUMALOG) 5 UNIT AC SUBQ Miscellaneous Information (VANCOMYCIN PHARMACY T O DOSE) 1 EACH ASDIR IV (CKD) Heparin Sodium (HEPARIN 5000 UNITS/ML) 5,000 UNI T Q8HR SUBQ Cefepime HCl (MAXIPIME) 1 GM Q6H IV Sodium Chloride (SODIUM CHLORIDE) 10 ML Acetaminophen (TYLENOL) 650 MG Q6H PRN PRN PO Bisacodyl (DULCOLAX) 10 MG DAILY PRN PRN RECTAL Docusate Sodium (COLACE) 100 MG Q12H PRN PRN PO Hydralazine HCl (APRESOLINE) 10 MG Q6H PRN PRN I V Ondansetron HCl (ZOFRAN) 4 MG Q6H PRN PRN IV Physical Exam General appearance: alert, no acute distress Head/eyes: atraumatic, normocephalic ENT: normal nose Neck: non-tender, supple/no meningismus Cardiovascular: normal heart sounds, no rub Respiratory: aerating well, symmetric expansion Abdomen: non-tender, soft Genitourinary: no flank pain Extremities: pitting edema, non-tender Musculoskeletal: no CVA tenderness, no tendernes s 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, 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 Considered stroke alert: no Skin: dry, intact Results Findings/Data: Laboratory Tests 09/10 09/09 09/09 09/09 09/09 0541 1911 1606 1526 1049 Chemistry POC Glucose (70 - 110 MG/DL) 154 H 102 109 30 L 90 09/09 09/09 09/08 09/08 0524 0500 1955 1828 Chemistry Sodium (134 - 147 mEq/L) 136 Potassium (3.4 - 5.0 mEq/L) 4.2 Chloride (100 - 108 mEq/L) 107 Carbon Dioxide (21 - 33 mEq/l) 22 Anion Gap (0 - 20) 11 BUN (7 - 18 mg/dL) 23 H Creatinine (0.6 - 1.3 mg/dL) 1.5 H Glomerular Filtr Rate (90 - 95) 53.6 L Glucose (70 - 110 mg/dL) 125 H POC Glucose (70 - 110 MG/DL) 128 H 106 Calcium (8.0 - 10.5 mg/dL) 8.2 Phosphorus (2.5 - 4.9 MG/DL) 4.0 Magnesium (1.80 - 2.40 mg/dL) 1.89 Iron (35 - 150 mcg/dL) 10 L TIBC (260 - 445 mcg/dL) 138 L % Saturation (14 - 34 %) 7.2 L Unsat Iron Binding (mcg/dL) 128 Ferritin (23.9 - 336.2 ng/mL) 700.5 H Lactate Dehydrogenase (87 - 241 IUnits/L) 193 09/08 09/08 09/08 09/08 09/08 1611 [id number] Chemistry Sodium (134 - 147 mEq/L) 135 Potassium (3.4 - 5.0 mEq/L) 4.6 Chloride (100 - 108 mEq/L) 107 Carbon Dioxide (21 - 33 mEq/l) 22 Anion Gap (0 - 20) 10 BUN (7 - 18 mg/dL) 22 H Creatinine (0.6 - 1.3 mg/dL) 1.4 H Glomerular Filtr Rate (90 - 95) 58.3 L Glucose (70 - 110 mg/dL) 100 POC Glucose (70 - 110 MG/DL) 120 H 101 99 101 Calcium (8.0 - 10.5 mg/dL) 8.1 Magnesium (1.80 - 2.40 mg/dL) 1.58 L Total Creatine Kinase (46 - 171 22 L Units/L) Albumin (3.4 - 5.0 g/dL) 1.30 L Prealbumin (16.0 - 40.0 mg/dL) < 5.0 L 09/07 09/07 09/07 09/07 09/07 2238 2110 1554 1137 1127 Chemistry POC Glucose (70 - 110 MG/DL) 135 H 127 H 112 H 51 L 42 L Laboratory Tests 09/09 09/08 09/08 0500 1828 0615 Hematology WBC (4.5 - 11.0 x10 3/uL) 9.2 9.1 RBC (4.00 - 5.60 x10 6/uL) 3.01 L 3.05 L Hgb (12.5 - 16.9 g/dL) 8.5 L 8.5 L Hct (37.5 - 50.7 %) 25.9 L 26.2 L MCV (81.0 - 99.0 fL) 86.0 85.9 MCH (27.0 - 33.0 pg) 28.2 27.9 MCHC (33.0 - 37.0 g/dL) 32.8 L 32.4 L RDW (11.5 - 14.5 %) 13.8 13.5 Plt Count (150 - 400 x10 3/uL) 263 231 MPV (7.0 - 9.0 fL) 9.7 H 9.6 H Neut % (Auto) (56.0 - 77.0 %) 69.1 73.3 Lymph % (Auto) (14.0 - 32.0 %) 16.1 13.7 L Boundary % (Auto) (4.8 - 9.0 %) 9.2 H 7.2 Eos % (Auto) (0.3 - 3.7 %) 4.7 H 4.8 H Baso % (Auto) (0.0 - 2.0 %) 0.4 0.3 Neut # (Auto) (2.0 - 7.6 x10 3/uL) 6.38 6.64 Lymph # (Auto) (1.0 - 3.8 x10 3/uL) 1.49 1.24 Boundary # (Auto) (0.1 - 0.8 x10 3/uL) 0.85 H 0.65 Eos # (Auto) (0.0 - 0.2 x10 3/uL) 0.43 H 0.43 H Baso # (Auto) (0.0 - 0.2 x10 3/uL) 0.04 0.03 Abs Immat Gran (auto) (0.00 - 0.03 x10 3/uL) 0. 05 H 0.06 H Add Manual Diff NO NO Immature Gran % (0.0 - 2.0 %) 0.5 0.7 Nucleated RBC % (0 - 0 %) 0.0 0.0 Nucleated RBCs # (Man) (0.0 - 0.1 x10 3/uL) 0.0 0 0.00 Retic Count (auto) (0.3 - 2.3 %) 1.3 Laboratory Tests 09/09 09/08 1403 1045 Toxicology Random Vancomycin (mcg/mL) 15.4 15.8 Laboratory Tests 09/10 09/09 09/09 09/09 09/09 0541 1911 1606 1526 1049 Chemistry POC Glucose (70 - 110 MG/DL) 154 H 102 109 30 L 90 Laboratory Tests 09/09 1403 Toxicology Random Vancomycin (mcg/mL) 15.4 Diagnosis, Assessment Plan Free Text A P: Patient seen and evaluated, discussed with care team, images and laboratories reviewed. Diabetes mellitus: Insulin: Monitor bloo d sugar closely and adjust medications as needed, followed by endocrinology. Hypertension: Blood pressure is not well controlled, increase Coreg to 12.5 mg p.o. 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 We will check serum immu nofixation. Acute kidney injury: We will check renal bladder ultrasound, check postvoid residual, check urine protein creatinine ratio Hypomagnesemia: We will supplement 09/09/2022 laboratory this mo rning showed sodium 135, potassium 4.2, CO2 21, BUN 25, creatinine 1.9 continues to worsen, etiology unclear, however his development some eosinophili a not sure if he is developing AIN, suggest changing cefepime to a different class of antibiotic if p ossible, will check renal bladder ultrasound Consultants: cardiology, endocrinology, hospital ist, infectious disease, podiatry Electronically Signed by Barrera Ramírez MD on at 0933 RPT #:[id number] END OF REPORT 2022-09-10 06:03:00-00:00 [facility] ([facility] Rehab Progress Note REPORT#:[id number] REPORT STATUS: Signed DATE:09/10/22 TIME: 602 PATIENT: KARMA ROWLAND UNIT #: [id number] ROOM/BED: [place] [address] : 63 AGE: 56 SEX: M ATTEND: Fredy Vences MD ADM AUTHOR: Guero Candelaria * ALL edits or amendments must be made on the el [employer]/computer document * Subjective Chief complaint: Rehab follow-up Doing better + BM Eating 75-100% Denies MCBRIDE/N/V/D/CP 14 systems reviewed and neg. except that above. History of present illness: 56 yo HAM with long h/o DM, and HTN who was admitted for fever, flulike symptoms and altered mental status on 08/18. He was doing well until about 3 days prior to admission when he noted blister to have formed o n the dorsum of his foot. His foot started progressively getting more swollen and the blisters started enlarging and extending to his lateral f oot and ankle. He started feeling weak and nauseated. He was noted to have altered mentation and was brought to our ER. He was noted to be in DKA with Blood sugars grea ter than 600. He was seen by podiatry and surgery for BLE wounds and infectio n. He was treated in ICU for sepsis and DKA. He underwent incisional and excisional debridement of right foot and right ankle by podiatry. Patient also found to have prostate abscess underwent transrectal ultrasound aspiration of a bscess and transurethral resection of prostate and unroofing of abscess b y urology Dr. Bass. Endocrinology treated the DKA and blood sugars m uch improved. Patient's right foot was not salvageable and patient und erwent right BKA by Dr. LEROY on 08/28. Patient blood cultures showe d MRSA. Patient continued on antibiotics as per ID. MRI of the pelvis and foot completed. Patient r equired multiple PRBCs for anemia. Patient was found to have a possible small hematoma of the left calf on ultrasound. He complains of pain and swelling of the left ankle. Patient hemodynamically stable and plans are to be transferred to stepdown unit. He is on heparin subcu for VTE. Af ter surgery he is now being mobilized by PT and OT. He is wearing a nestor-tech orthotic for right knee /BKA protection. Prior to admission the patient was independent living in a single-story house with his spouse with a few steps up to front and back doo r. 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 is at bedside. Patient denies nausea, vomiting, fever, chills, chest pain, shortness of breath with diz ziness. He is requiring IV Dilaudid for pain control. Mental status back to baseline. Pt is progressing slowly with therapy d/t weakness and pain, self care deficit, decreased endurance and balance, and decreased functional mobility. Pt requiring acute inpt rehab for multidiscipli nary team of nursing, therapy, and physicians. Pt is willing and able to partici- kathleen in 3 hr/day inpt rehab to d/c home safely. Pt' s prior level of function was independent. Objective General VS: Vital Signs: Date Time Temp Pulse Resp B/P B/P Pulse O2 O2 F low FiO2 Mean Ox Delivery Rate 09/09 2334 97.5 82 17 146/73 97.2 97 Room air 09/09 2116 84 95 Room air 09/09 1852 97.3 82 17 165/83 110.6 09/09 1529 97.7 79 18 168/80 109.3 98 Room air 09/09 0709 98.2 88 17 140/71 93.7 94 Room air PATIENT WEIGHT: Weight (lb): 165 Weight (oz): 5.55 Weight (kg): 75.000 Medications: Active Meds + DC'd Last 24 Hrs Vancomycin HCl (VANCOMYCIN HCL) 500 MG ONCE ONE IV (DC) Sodium Chloride (SODIUM CHLORIDE 0.9% 100 ML) 1 00 ML Ferric Sodium Gluconate Complex (FERRLECIT) 125 MG DAILY IV Sodium Chloride (SODIUM CHLORIDE 0.9%) 100 ML Folic Acid (FOLIC ACID) 2 MG DAILY PO Multivitamins (TAB-A-MOHAN) 1 TAB DAILY PO Carvedilol (COREG) 12.5 MG C BK DIN PO Hydromorphone HCl (DILAUDID) 0.5 MG Q6H PRN PRN IV Vancomycin HCl (VANCOMYCIN HCL) 500 MG Q24H IV ( DC) Sodium Chloride (SODIUM CHLORIDE 0.9% 100 ML) 1 00 ML Insulin Glargine (Lantus/Semglee) 5 UNIT BEDTIME SUBQ Furosemide (LASIX 20MG INJ) 20 MG BLOOD-DOSE BET WEEN IV (CKD) Sodium Chloride (SODIUM CHLORIDE) 10 ML ASDIR IV Furosemide (LASIX) 20 MG DAILY PO Pantoprazole Sodium (PROTONIX) 40 MG Q12HR IV Polyethylene Glycol (MIRALAX) 17 GM DAILY PO Sennosides (Senna Lax 8.6 MG TABLET) 8.6 MG MADALYN Y PO Sodium Chloride (SODIUM CHLORIDE) 10 ML ASDIR NV N IV Amitriptyline HCl (ELAVIL) 25 MG BEDTIME PO Mupirocin (BACTROBAN 2% 22 GM OINTMENT) 1 APPLIC BID NASAL (DC) Zinc Oxide (ZINC OXIDE 30 GM OINTMENT) 1 APPLIC DAILY TOPICAL Sterile Water (WATER FOR IRRIGATION) DRESSING CH GELACIO ASDIR PRN IRR Insulin Human Lispro (HUMALOG) 0 AC HS SUBQ Dextrose/Water (DEXTROSE 10% IN WATER) 125 ML DIR PRN IV (CKD) Dextrose/Water (DEXTROSE 10% IN WATER) 250 ML A SDIR PRN IV (CKD) Glucagon (GLUCAGON) 1 MG ASDIR PRN IM Hydrocodone Bitart/Acetaminophen (NORCO 10/325) 1 TAB Q4H PRN PRN PO Lidocaine (LIDODERM) 1 PATCH DAILY TOPICAL Insulin Human Lispro (HUMALOG) 5 UNIT AC SUBQ Miscellaneous Information (VANCOMYCIN PHARMACY T O DOSE) 1 EACH ASDIR IV (CKD) Heparin Sodium (HEPARIN 5000 UNITS/ML) 5,000 UNI T Q8HR SUBQ Cefepime HCl (MAXIPIME) 1 GM Q6H IV Sodium Chloride (SODIUM CHLORIDE) 10 ML Acetaminophen (TYLENOL) 650 MG Q6H PRN PRN PO Bisacodyl (DULCOLAX) 10 MG DAILY PRN PRN RECTAL Docusate Sodium (COLACE) 100 MG Q12H PRN PRN PO Hydralazine HCl (APRESOLINE) 10 MG Q6H PRN PRN I V Ondansetron HCl (ZOFRAN) 4 MG Q6H PRN PRN IV Functional Progress Functional progress: PT daily note comment: s patient reported decrea sed swelling to bilateral le, states he feels fatigue from the clean out prep for colonoscopy. REPORTS PAIN 5/10 O. PATIENT SUPINE IN BED WORKED ON LE EX ACROSS ALL PLANES, HIP ABD, SLR, KNEE FLEXION . WORKED ON BED MOB, ABLE TO SIT UP EOB WITH SBA FOR SAFETY USES RAILS, WORKED O N SQUAT PIVOT TRANSFERS TO WITH MIN A, NESTOR TECH ON ,RLE STUMP ORALIA WRAPPED, EDUCATED SPOUSE ON FIGURE 8. PATIENT WORKED ON MOB WITH SBA FOR SAFETY , IN THE GYM PATIENT OWRKED ON SIT TO STANDS WITH MOD A, CUES TO PUSHOFF FROM A RM REST. PATIENT WORKED ON DYNAMIC BALANCE EX, HIP FLEX, HIP EXT 10X 1. WORKED ON SIT TO STANDS X5, STATIC STANDING , WEIGHT WHIFTING SIDE TO SIDE. PATIENT WORKED ON WC MOB BACK TO ROOM AND LEFT WITH CALL BUTTON IN REACH A. PATIENT IS PROGRESSING WITH PT, REQUIRES MIN A FOR STAND PIVOT TRANSFERS, WC MOB IMPROVING AND LIMITED B Y DEC ACTIVITY TOLERANCE AND WEAKNESS P, CONTINUE WITH POC WITH AN EMPHASIS ON TRANSFERS AND WC MOB, FAMILY TRAINING FOR FIGURE 8 ORALIA WRAP Physical Exam General appearance: alert, awake Psych: alert, normal affect, oriented x 3 HEENT: anicteric, sclera clear Neck: supple, no JVD Cardiovascular: S1/S2, no murmur Respiratory: aerating well, clear bilaterally Abdomen: bowel sounds present, non-distended, so ft, non-tender Skin: no rash, R BKA HEALING. 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 3, CNII-XII intact Results Findings/Data: Laboratory Tests: 09/10 09/09 09/09 09/09 09/09 0541 1911 1606 1526 1403 Chemistry POC Glucose (70 - 110 MG/DL) 154 H 102 109 30 L Toxicology Random Vancomycin (mcg/mL) 15.4 09/09 1049 Chemistry POC Glucose (70 - 110 MG/DL) 90 Diagnosis, Assessment Plan Problem List/A P: 1. Gangrene of right foot 2. 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 MRSA bacteremia 4. Cellulitis of foot, right 5. DKA (diabetic ketoacidosis) 6. Hyperglycemia 7. ERIKA (acute kidney injury) 8. Postoperative pain 9. Acute anemia 10. Prostate abscess 11. 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 Leroy Significant impairment in self-care, ADLs and fu nctional mobility Impaired mobility and gait Acute postoperative pain right BKA Diabetic polyneuropathy DKA, DM 2, poorly controlled, A1c greater than 1 4 PAD MRSA bacteremia/sepsis-treated on acute ERIKA Severe hyponatremia-resolved HTN Acute on chronic anemia requiring multiple trans fusions, possible GI bleed Left calf hematoma Edema and clinical arthritis left ankle Early decubitus to left heel/DTI dorsal left mid foot Prostatic abscess 08/26: S/p transrectal ultrasound aspiration of ab scess and transurethral resection of prostate and unroofing of abscess Echo: EF 55-59%, grade 1 diastolic dysfunction 09/02: JIMENA negative for vegetation MRSA OF NARES 09/08:s/p EGD and colonoscopy. EGD showed mild ga stritis. Colonoscopy showed rectal polyp that was resected by snare. Plan: -PLOF: Independent with transfers and gait -Amputee rehab program -Continue PT and OT -15/12 rehabilitation nursing care. -Case management for safe discharge planning. -Decubitus prevention -Early decubitus to left heel/DTI dorsal left mi dfoot-zinc oxide to the foot, foam, offloading, podiatry managing -DVT prophylaxis-subcutaneous heparin -Strict fall and safety precautions -Work on bed mobility, transfer training, ADLs, pre-gait and gait exercises -Increase endurance and strength -Monitor pain with therapies -OOB to chair -Monitor p.o. intake and nut rition, albumin 1.3, prealbumin less than 5, dietary consultation, protein supplements to promote hea ling -Continue antibiotics per ID -on cefepime and vancomycin until 10/11 for treatment of prostatic abscess -Tight glycemia control- endocrine on board, ins ulin adjustments -Endocrinology, ID, podiatry, cardiology, IM con sulted -Pain management adjusting pain medications -Anemia, patient required multiple units of PRBC s on acute, FOBT positive -IV Protonix-consult GI-seri al H H-no evidence of gross bleeding-discussed with Dr. Trinidad -Constipation-abdominal vqihykar-OPN-tmeupk-CW S enokot and MiraLAX, DSP -Right IRP-qaxipkr-rbscpweb resolved, dr martinez changed moxxa-bbtpvmp-kvuhvknq NESTOR-TECH -MRSA OF NARES on Bactroban protocol -LLE edema-venous Doppler wi th complex heterogeneous hypoechoic fluid collection in the left calf region mitzi uring 8.4, 2.8, 2.5 cm suggestive of hematoma. Hold Lasix x3 days. Oralia wrap calf -Generalized edema-some shor tness of breath and abdominal distention-cardiology gave a dose of IV Lasix-monitor urine output, da jaz weights -Chest x-ray with minimal basilar pulmonary opac ities -Anemia-hemoglobin 8.5, transfused 2 units of NV BC on 09/05 -09/08: s/p EGD and colonoscopy. EGD showed mild gastritis. Colonoscopy showed rectal polyp that was resected by snare. Anemia likely secondary to chronic kidney disease. Consult renal. -Chemistries good, creatinine 1.5, magnesium 1.8 9 -Advance therapies as tolerated-discusse d treatment plan with patient and -Patient continues to perform well with therapies. Patient is highly motivated but requires rest breaks due to becoming easily fatigued. Patient working on sliding board and stand pivot transfers PM R Please see team note. Plan and goals discussed with the patient. I agree with the teams finding ELOS- [09/19] DC-Home with -Home health DME-bedside commode, sliding board, wheelchair, Total time 33 minutes greater than 50% of the ti me spent examining patient, discussing with patient abou t team conference, anemia, EGD and colonoscopy, hold anticoagulants for a few days, amputee rehab shruthi n of care, goals, therapies, progress, labs, medications. EMR and MAR is revi ewed. All questions answered Rehab attestation: Face to face exam completed. Treatment plan disc ussed with patient. Meets continued stay criteria. Agree with interdiscipl inary treatment plan. Electronically Signed by Guero Candelaria on 0 09/11/22 at 1500 RPT #:[id number] END OF REPORT 2022-09-10 05:42:00-00:00 [facility] Pain Management Progress Note REPORT#:[id number] REPORT STATUS: Signed DATE:09/10/22 TIME: 541 PATIENT: KARMA ROWLAND UNIT #: [id number] ROOM/BED: [place] [address] : 63 AGE: 56 SEX: M ATTEND: Fredy Vences MD ADM AUTHOR: Charlie Quiroga CLAY MILLER * ALL edits or amendments must be made on the el ectronic/computer document * Charlie Quiroga 09/10/22 0542: Subjective Chief complaint: Patient seen and examined. Chart/MAR reviewed. Patient states the pain is not controlled with t he use of the Check. He still requires the IV dilaudid. I explained I'll adjust medications, but need to wean the IV pain medication. Patient being seen for Acute postoperative pain, right foot and ankle gangrene, requiring BKA, Constipation Patient is still requiring medications to help w ith managing current problems. Patient is requiring IV narcotics to help manage breakthrough pain No fever/chills, chest pain, orthopnea, nausea/v omiting, pruritus, or hallucinations. 14 point ROS undertaken unremarkable except as n oted Objective General VS/I O: Vital Signs Date Temp Pulse Resp B/P B/P Mean Pulse Ox FiO2 09/09 97.3-98.2 79-88 17-18 140-168/71-83 93.7- 110.6 94-98 Last Documented: Result Date Time Pulse Ox 97 09/09 2334 B/P 146/73 09/09 2334 B/P Mean 97.2 09/09 2334 O2 Delivery Room air 09/09 233 Temp 97.5 09/09 2334 Pulse 82 09/09 2334 Resp 17 09/09 2334 O2 Flow Rate 2 09/08 1322 24 hour I O ending at 0700: 09/10 0700 09/09 1900 Intake Total 715 Output Total Balance 715 Intake, Oral 715 PATIENT WEIGHT: Weight (lb): 165 Weight (oz): 5.55 Weight (kg): 75.000 Medications: Active Meds + DC'd Last 24 Hrs Vancomycin HCl (VANCOMYCIN HCL) 500 MG ONCE ONE IV (DC) Sodium Chloride (SODIUM CHLORIDE 0.9% 100 ML) 1 00 ML Ferric Sodium Gluconate Complex (FERRLECIT) 125 MG DAILY IV Sodium Chloride (SODIUM CHLORIDE 0.9%) 100 ML Folic Acid (FOLIC ACID) 2 MG DAILY PO Multivitamins (TAB-A-MOHAN) 1 TAB DAILY PO Carvedilol (COREG) 12.5 MG C BK DIN PO Hydromorphone HCl (DILAUDID) 0.5 MG Q6H PRN PRN IV Vancomycin HCl (VANCOMYCIN HCL) 500 MG Q24H IV ( DC) Sodium Chloride (SODIUM CHLORIDE 0.9% 100 ML) 1 00 ML Insulin Glargine (Lantus/Semglee) 5 UNIT BEDTIME SUBQ Furosemide (LASIX 20MG INJ) 20 MG BLOOD-DOSE BET WEEN IV (CKD) Sodium Chloride (SODIUM CHLORIDE) 10 ML ASDIR IV Furosemide (LASIX) 20 MG DAILY PO Pantoprazole Sodium (PROTONIX) 40 MG Q12HR IV Polyethylene Glycol (MIRALAX) 17 GM DAILY PO Sennosides (Senna Lax 8.6 MG TABLET) 8.6 MG MADALYN Y PO Sodium Chloride (SODIUM CHLORIDE) 10 ML ASDIR NV N IV Amitriptyline HCl (ELAVIL) 25 MG BEDTIME PO Mupirocin (BACTROBAN 2% 22 GM OINTMENT) 1 APPLIC BID NASAL (DC) Zinc Oxide (ZINC OXIDE 30 GM OINTMENT) 1 APPLIC DAILY TOPICAL Sterile Water (WATER FOR IRRIGATION) DRESSING CH GELACIO ASDIR PRN IRR Insulin Human Lispro (HUMALOG) 0 AC HS SUBQ Dextrose/Water (DEXTROSE 10% IN WATER) 125 ML DIR PRN IV (CKD) Dextrose/Water (DEXTROSE 10% IN WATER) 250 ML DIR PRN IV (CKD) Glucagon (GLUCAGON) 1 MG ASDIR PRN IM Hydrocodone Bitart/Acetaminophen (NORCO 10/325) 1 TAB Q4H PRN PRN PO Lidocaine (LIDODERM) 1 PATCH DAILY TOPICAL Insulin Human Lispro (HUMALOG) 5 UNIT AC SUBQ Miscellaneous Information (VANCOMYCIN PHARMACY T O DOSE) 1 EACH ASDIR IV (CKD) Heparin Sodium (HEPARIN 5000 UNITS/ML) 5,000 UNI T Q8HR SUBQ Cefepime HCl (MAXIPIME) 1 GM Q6H IV Sodium Chloride (SODIUM CHLORIDE) 10 ML Acetaminophen (TYLENOL) 650 MG Q6H PRN PRN PO Bisacodyl (DULCOLAX) 10 MG DAILY PRN PRN RECTAL Docusate Sodium (COLACE) 100 MG Q12H PRN PRN PO Hydralazine HCl (APRESOLINE) 10 MG Q6H PRN PRN I V Ondansetron HCl (ZOFRAN) 4 MG Q6H PRN PRN IV Physical Exam General appearance: alert, awake, oriented, no r espiratory distress Head/eyes: atraumatic, EOMI, normocephalic, norm al conjunctiva/sclera, PERRLA ENT: normal ear left, normal ear right, normal n ose, normal pharynx, moist mucosal membranes Neck: full range of motion, no lymphadenopathy, supple/no meningismus Cardiovascular: regular rate rhythm Respiratory: clear to auscultation, no distress, aerating well Abdomen: soft, non-tender, no distention , active bowel sounds in all quarants. 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, no sensory deficit s, CNII-XII grossly intact Considered stroke alert: no Skin: dry, normal color, normal turgor Psychiatry: normal affect Results Findings/data: Laboratory Tests: 09/09 09/09 09/09 09/09 09/09 1911 1606 1526 1403 1049 Chemistry POC Glucose (70 - 110 MG/DL) 102 109 30 L 90 Toxicology Random Vancomycin (mcg/mL) 15.4 Diagnosis, Assessment Plan Free text A P: A/P: Patient is a 56 year old male who presents with: Recent prostate abscess -Status post TURP with unroofing of abscess -IV antibiotics with vancomycin until 09-24-2022 Acute postoperative pain, right foot and ankle g angrene, requiring BKA -Patient is at risk for further amputations or l oss of limb due to comorbid conditions -Status post right BKA 08/28/2022 -DC Check 10/325 1 tablet p.o. every 4 hours as needed pain scale 4 10 -Tylenol 650 mg p.o. every 6 hours as needed ofelia n scale 1 3 -reduce Dilaudid 0.5 mg IV e very 12 hours as needed pain scale 7 10, second line therapy-patient will require close monit oring while using IV narcotics for any deleterious effect -Start Percocet 10/325mg every 4 hours as needed , pain scale 4-10 (09/10) -Lidoderm patch to left ankle daily -IV antibiotics with vancomycin until 09-24-2022 -Local wound care -manageable Diabetic peripheral neuropathy -amitriptyline 25mg PO QHS -Start Gabapentin 100mg every 8 hours (09/10) -manageable Hypertension -We will monitor hypertension and tachycardia du e to pain, and hypotension as well as bradycardia secondary over sedation with narcotics -Hydralazine as needed Elevated LFTs -08/20/22-AST 51, ALT 22 -09/03/2022-AST 15, ALT 7 -Patient will require close monitoring since he is using narcotics with Tylenol Impaired functional mobility, balance, gait, and endurance -PT/OT Antalgic/Impaired gait -PT/OT -Improve strength, endurance, self-care, gait, b alance, ADLs -Fall precautions per unit protocol -Pain medications as outlined above Constipation -We will monitor while utilizing opioid narcotic medications. -Adequate fluid intake also discussed. -Colace 100 mg p.o. twice daily as needed -Dulcolax 10 mg rectally daily as needed -Senna lax 8.6mg daily -Miralax 17gm daily -manageable Disposition: Past Medical History: Prostate abscess, right fo ot foot and ankle gangrene, diabetes, hypertension, hyperlipidemia Past Surgical History: TURP, right BKA Family History: Noncontributory Social History: Denies tobacco, alcohol, or drug use Allergies: NKDA Patient has failed conservative medical therapy. Patient will require monitoring while utilize na rcotic medications for any adverse effects, and will adjust as needed Plan of care discussed with patient and nurse All diagnostics of last 24 hours been reviewed. Risks versus benefits of opioid medications were reviewed to include, but not limited to respiratory depression, accid ental overdose, altered mental status, sudden , constipation which could result in bowel obstruction, seizures, withdrawal, dependency addiction, risk for falls . Case discussed with Dr Ng whom agrees. Thank you for the consultation. [place] [facility] NURSE: -database searched, no information found Kingsley Ng 09/28/22 2002: Attestations Physician Attestation Agree w/findings plan: The patient was seen and exa mined by Charlie Quiroga. I personally developed the care plan, which was continued by the mid-level provider. I was immediately available. at 1607 Electronically Signed by Kingsley Ng MD on 3 at 2001 RPT #:[id number] END OF REPORT 2022-09-09 16:51:00-00:00 [facility] REPORT#:[id number] REPORT STATUS: Signed DATE:09/09/22 TIME: 1651 PATIENT: KARMA ROWLAND UNIT #: [id number] ROOM/BED: [place] [address] : 63 AGE: 56 SEX: M ATTEND: Fredy Vences MD ADM AUTHOR: Braxton Chapin MD * ALL edits or amendments must be made on the [employer]/computer document * Subjective Patient reports: no complaints Objective General VS: Last Documented: Result Date Time Pulse Ox 98 09/09 1529 B/P 168/80 09/09 1529 B/P Mean 109.3 09/09 1529 O2 Delivery Room air 09/09 1529 Temp 36.5 09/09 1529 Pulse 79 09/09 1529 Resp 18 09/09 1529 O2 Flow Rate 2 09/08 1322 PATIENT WEIGHT: Weight (lb): 165 Weight (oz): 5.55 Weight (kg): 75.000 Medications: Active Meds + DC'd Last 24 Hrs Vancomycin HCl (VANCOMYCIN HCL) 500 MG ONCE ONE IV (DC) Sodium Chloride (SODIUM CHLORIDE 0.9% 100 ML) 1 00 ML Ferric Sodium Gluconate Complex (FERRLECIT) 125 MG DAILY IV Sodium Chloride (SODIUM CHLORIDE 0.9%) 100 ML Folic Acid (FOLIC ACID) 2 MG DAILY PO Multivitamins (TAB-A-MOHAN) 1 TAB DAILY PO Carvedilol (COREG) 12.5 MG C BK DIN PO Magnesium Sulfate (MAGNESIUM SULFATE 2GM/SWFI 50 ML) 50 ML ONCE ONE IV ( DC) Hydromorphone HCl (DILAUDID) 0.5 MG Q6H PRN PRN IV Vancomycin HCl (VANCOMYCIN HCL) 500 MG Q24H IV ( DC) Sodium Chloride (SODIUM CHLORIDE 0.9% 100 ML) 1 00 ML Carvedilol (COREG) 3.125 MG C BK DIN PO (DC) Insulin Glargine (Lantus/Semglee) 5 UNIT BEDTIME SUBQ Furosemide (LASIX 20MG INJ) 20 MG BLOOD-DOSE BET WEEN IV (CKD) Sodium Chloride (SODIUM CHLORIDE) 10 ML ASDIR IV Furosemide (LASIX) 20 MG DAILY PO Pantoprazole Sodium (PROTONIX) 40 MG Q12HR IV Polyethylene Glycol (MIRALAX) 17 GM DAILY PO Sennosides (Senna Lax 8.6 MG TABLET) 8.6 MG MADALYN Y PO Sodium Chloride (SODIUM CHLORIDE) 10 ML ASDIR NV N IV Amitriptyline HCl (ELAVIL) 25 MG BEDTIME PO Mupirocin (BACTROBAN 2% 22 GM OINTMENT) 1 APPLIC BID NASAL (DC) Zinc Oxide (ZINC OXIDE 30 GM OINTMENT) 1 APPLIC DAILY TOPICAL Sterile Water (WATER FOR IRRIGATION) DRESSING CH GELACIO ASDIR PRN IRR Insulin Human Lispro (HUMALOG) 0 AC HS SUBQ Dextrose/Water (DEXTROSE 10% IN WATER) 125 ML DIR PRN IV (CKD) Dextrose/Water (DEXTROSE 10% IN WATER) 250 ML DIR PRN IV (CKD) Glucagon (GLUCAGON) 1 MG ASDIR PRN IM Hydrocodone Bitart/Acetaminophen (NORCO 10/325) 1 TAB Q4H PRN PRN PO Lidocaine (LIDODERM) 1 PATCH DAILY TOPICAL Insulin Human Lispro (HUMALOG) 5 UNIT AC SUBQ Miscellaneous Information (VANCOMYCIN PHARMACY T O DOSE) 1 EACH ASDIR IV (CKD) Heparin Sodium (HEPARIN 5000 UNITS/ML) 5,000 UNI T Q8HR SUBQ Cefepime HCl (MAXIPIME) 1 GM Q6H IV Sodium Chloride (SODIUM CHLORIDE) 10 ML Acetaminophen (TYLENOL) 650 MG Q6H PRN PRN PO Bisacodyl (DULCOLAX) 10 MG DAILY PRN PRN RECTAL Docusate Sodium (COLACE) 100 MG Q12H PRN PRN PO Hydralazine HCl (APRESOLINE) 10 MG Q6H PRN PRN I V Ondansetron HCl (ZOFRAN) 4 MG Q6H PRN PRN IV Physical Exam General appearance: alert, awake Diagnosis, Assessment Plan Hospital course to date: Laboratory Tests: 09/09 09/09 09/09 09/09 09/09 1606 1526 1403 1049 0524 Chemistry POC Glucose (70 - 110 MG/DL) 109 30 L 90 128 H Toxicology Random Vancomycin (mcg/mL) 15.4 09/09 09/08 09/08 0500 1955 1828 Chemistry Sodium (134 - 147 mEq/L) 136 Potassium (3.4 - 5.0 mEq/L) 4.2 Chloride (100 - 108 mEq/L) 107 Carbon Dioxide (21 - 33 mEq/l) 22 Anion Gap (0 - 20) 11 BUN (7 - 18 mg/dL) 23 H Creatinine (0.6 - 1.3 mg/dL) 1.5 H Glomerular Filtr Rate (90 - 95) 53.6 L Glucose (70 - 110 mg/dL) 125 H POC Glucose (70 - 110 MG/DL) 106 Calcium (8.0 - 10.5 mg/dL) 8.2 Phosphorus (2.5 - 4.9 MG/DL) 4.0 Magnesium (1.80 - 2.40 mg/dL) 1.89 Iron (35 - 150 mcg/dL) 10 L TIBC (260 - 445 mcg/dL) 138 L % Saturation (14 - 34 %) 7.2 L Unsat Iron Binding (mcg/dL) 128 Ferritin (23.9 - 336.2 ng/mL) 700.5 H Lactate Dehydrogenase (87 - 241 IUnits/L) 193 Hematology WBC (4.5 - 11.0 x10 3/uL) 9.2 RBC (4.00 - 5.60 x10 6/uL) 3.01 L Hgb (12.5 - 16.9 g/dL) 8.5 L Hct (37.5 - 50.7 %) 25.9 L MCV (81.0 - 99.0 fL) 86.0 MCH (27.0 - 33.0 pg) 28.2 MCHC (33.0 - 37.0 g/dL) 32.8 L RDW (11.5 - 14.5 %) 13.8 Plt Count (150 - 400 x10 3/uL) 263 MPV (7.0 - 9.0 fL) 9.7 H Neut % (Auto) (56.0 - 77.0 %) 69.1 Lymph % (Auto) (14.0 - 32.0 %) 16.1 Boundary % (Auto) (4.8 - 9.0 %) 9.2 H Eos % (Auto) (0.3 - 3.7 %) 4.7 H Baso % (Auto) (0.0 - 2.0 %) 0.4 Neut # (Auto) (2.0 - 7.6 x10 3/uL) 6.38 Lymph # (Auto) (1.0 - 3.8 x10 3/uL) 1.49 Boundary # (Auto) (0.1 - 0.8 x10 3/uL) 0.85 H Eos # (Auto) (0.0 - 0.2 x10 3/uL) 0.43 H Baso # (Auto) (0.0 - 0.2 x10 3/uL) 0.04 Abs Immat Gran (auto) (0.00 - 0.03 x10 3/uL) 0. 05 H Add Manual Diff NO Immature Gran % (0.0 - 2.0 %) 0.5 Nucleated RBC % (0 - 0 %) 0.0 Nucleated RBCs # (Man) (0.0 - 0.1 x10 3/uL) 0.0 0 Retic Count (auto) (0.3 - 2.3 %) 1.3 Laboratory Tests: 09/08 09/08 09/08 09/08 09/08 1611 1318 1045 1033 0616 Chemistry POC Glucose (70 - 110 MG/DL) 120 H 101 99 101 Toxicology Random Vancomycin (mcg/mL) 15.8 09/08 09/07 09/07 0615 2238 2110 Chemistry Sodium (134 - 147 mEq/L) 135 Potassium (3.4 - 5.0 mEq/L) 4.6 Chloride (100 - 108 mEq/L) 107 Carbon Dioxide (21 - 33 mEq/l) 22 Anion Gap (0 - 20) 10 BUN (7 - 18 mg/dL) 22 H Creatinine (0.6 - 1.3 mg/dL) 1.4 H Glomerular Filtr Rate (90 - 95) 58.3 L Glucose (70 - 110 mg/dL) 100 POC Glucose (70 - 110 MG/DL) 135 H 127 H Calcium (8.0 - 10.5 mg/dL) 8.1 Magnesium (1.80 - 2.40 mg/dL) 1.58 L Total Creatine Kinase (46 - 171 Units/L) 22 L Albumin (3.4 - 5.0 g/dL) 1.30 L Prealbumin (16.0 - 40.0 mg/dL) < 5.0 L Hematology WBC (4.5 - 11.0 x10 3/uL) 9.1 RBC (4.00 - 5.60 x10 6/uL) 3.05 L Hgb (12.5 - 16.9 g/dL) 8.5 L Hct (37.5 - 50.7 %) 26.2 L MCV (81.0 - 99.0 fL) 85.9 MCH (27.0 - 33.0 pg) 27.9 MCHC (33.0 - 37.0 g/dL) 32.4 L RDW (11.5 - 14.5 %) 13.5 Plt Count (150 - 400 x10 3/uL) 231 MPV (7.0 - 9.0 fL) 9.6 H Neut % (Auto) (56.0 - 77.0 %) 73.3 Lymph % (Auto) (14.0 - 32.0 %) 13.7 L Boundary % (Auto) (4.8 - 9.0 %) 7.2 Eos % (Auto) (0.3 - 3.7 %) 4.8 H Baso % (Auto) (0.0 - 2.0 %) 0.3 Neut # (Auto) (2.0 - 7.6 x10 3/uL) 6.64 Lymph # (Auto) (1.0 - 3.8 x10 3/uL) 1.24 Boundary # (Auto) (0.1 - 0.8 x10 3/uL) 0.65 Eos # (Auto) (0.0 - 0.2 x10 3/uL) 0.43 H Baso # (Auto) (0.0 - 0.2 x10 3/uL) 0.03 Abs Immat Gran (auto) (0.00 - 0.03 x10 3/uL) 0. 06 H Add Manual Diff NO Immature Gran % (0.0 - 2.0 %) 0.7 Nucleated RBC % (0 - 0 %) 0.0 Nucleated RBCs # (Man) (0.0 - 0.1 x10 3/uL) 0.0 0 Laboratory Tests: 09/07 09/07 09/07 09/07 09/07 1554 1137 1127 0618 0510 Chemistry Creatinine (0.6 - 1.3 mg/dL) 1.4 H POC Glucose (70 - 110 MG/DL) 112 H 51 L 42 L 13 5 H Hematology Hgb (12.5 - 16.9 g/dL) 8.4 L Hct (37.5 - 50.7 %) 26.2 L Toxicology Random Vancomycin (mcg/mL) 14.7 09/06 09/06 2226 2108 Chemistry POC Glucose (70 - 110 MG/DL) 192 H 211 H Laboratory Tests: 09/06 09/06 09/06 09/06 09/06 1553 1547 1051 0538 0536 Chemistry Creatinine (0.6 - 1.3 mg/dL) 1.4 H POC Glucose (70 - 110 MG/DL) 119 H 92 124 H Hematology Hgb (12.5 - 16.9 g/dL) 8.6 L Hct (37.5 - 50.7 %) 26.1 L Toxicology Vancomycin Trough (10.0 - 20.0 mcg/mL) 18.9 09/05 1910 Chemistry POC Glucose (70 - 110 MG/DL) 117 H Laboratory Tests: 09/05 09/05 09/04 09/04 09/04 1149 0615 2042 1630 1557 Chemistry Sodium (134 - 147 mEq/L) 134 Potassium (3.4 - 5.0 mEq/L) 5.0 Chloride (100 - 108 mEq/L) 109 H Carbon Dioxide (21 - 33 mEq/l) 21 Anion Gap (0 - 20) 9 BUN (7 - 18 mg/dL) 24 H Creatinine (0.6 - 1.3 mg/dL) 1.3 Glomerular Filtr Rate (90 - 95) 63.7 L Glucose (70 - 110 mg/dL) 75 POC Glucose (70 - 110 MG/DL) 74 103 128 H Calcium (8.0 - 10.5 mg/dL) 7.9 L Hematology Hgb (12.5 - 16.9 g/dL) 7.1 L Hct (37.5 - 50.7 %) 22.7 L Toxicology Vancomycin Trough (10.0 - 20.0 mcg/mL) 12.8 Microbiology: Date/Time Procedure - Status Source Growth 09/04 1739 Occult Blood - COMP STOOL Recent Impressions: RADIOLOGY - XR ABDOMEN 1V (KUB) 09/04 1648 Report Impression - Status: SIGNED Entered: 09/04/2022 1757 IMPRESSION: Benign appearance of the abdomen. Impression By: [email or web address] - Roger Parra M.D . ULTRASOUND - [facility] UNI/LTD 09/05 1146 Report Impression - Status: SIGNED Entered: 09/05/2022 1333 IMPRESSION: 1. No evidence of deep vein thrombosis. 2. Complex heterogeneous hypoechoic fluid collec tion in the left calf region measuring 8.4 x 2.8 x 2.5 cm; there is no internal vascularity or peripheral hyperemia. May represe nt a hematoma. Impression By: TipABJames - Mert Ga M.D. RADIOLOGY - XR CHEST 1 V 09/05 1432 Report Impression - Status: SIGNED Entered: 09/05/2022 1515 IMPRESSION: Minimal bibasilar pulmonary opacities Impression By: Hakeem Jacobo Laboratory Tests: 09/04 09/04 09/04 09/04 09/04 1630 1557 1100 1031 0816 Chemistry POC Glucose (70 - 110 MG/DL) 128 H 107 99 Hematology Hgb (12.5 - 16.9 g/dL) 7.7 L Hct (37.5 - 50.7 %) 23.7 L Toxicology Vancomycin Trough (10.0 - 20.0 mcg/mL) 12.8 09/04 09/04 09/03 09/03 0721 0540 1944 1836 Chemistry POC Glucose (70 - 110 MG/DL) 87 124 H Hematology Hgb (12.5 - 16.9 g/dL) 6.8 L Hct (37.5 - 50.7 %) 21.2 L Toxicology Vancomycin Peak (30 - 40 MCG/ML) 27.4 L Microbiology: Date/Time Procedure - Status Source Growth 09/04 1037 Occult Blood - COLB STOOL 1.Diabetes mellitus type 2 uncontrolled complica tions. 2. 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 4. Sepsis 5. Prostate abscess. 6. Anemia Blood sugar 125-90 mg/dL.H/H 8.6/26.1 Adjust insulin dose. PT and OT. Electronically Signed by Braxton Chapin MD on at 1652 RPT #:[id number] END OF REPORT 2022-09-09 15:26:00-00:00 [facility] Rehab Team Conference REPORT#:[id number] REPORT STATUS: Signed DATE:09/09/22 TIME: 1526 PATIENT: KARMA ROWLAND UNIT #: [id number] ROOM/BED: [place] [id number] : 63 AGE: 56 SEX: M ATTEND: Fredy Vences MD ADM AUTHOR: Mj Vences MD * ALL edits or amendments must be made on the el ectronic/computer document * Rehabilitation Team Conference Weekly Team Conference Team conf information: Date of conference: 09/09/22 Conference type: Initial Conference scribe: Columba Drew PTA INTERDISCIPLINARY TEAM MEETING PARTICIPANTS: TITLE NAME MD SELENA Butts, SELENA PT Anthony Ro, PT OT Rudi Yancey OT CM/SW Lucio Sinclair CM ST NO ATTENDEE PPSC Amanda Lai, BILLET CUTTER Staff (8) NO ATTENDEE Staff (9) NO ATTENDEE OTHER NAME CREDENTIALS 1 YOU PALMER DIETITIAN 2 FUNCTIONAL CHANGE: TYPE ADMISSION TOTAL INTERIM TOTAL CHANGE Self care 20 27 7 Transfer 17 22 5 Mobility 8 8 0 Wheelchair distance: Mobility description: BOWEL AND BLADDER STATUS: Bowel continence admission rating: Bladder continence admission rating: Not applica ble Bowel and bladder team conference update: CONTIN ENT OF BOWEL CAMARENA TO BSD PATENT INTERDISCIPLINARY TEAM UPDATES: LYDIA team conference update: AAOX4 ABLE TO FEED SELF WITH SET UP 1 PERSON ASSIST WITH DRESS AND HYGINE PT team conference update: P ROGRESSING WITH PT, S/P R BKA, REQUIRES JM FRO BED MBO, TRANSFERS WITH CGA USING SLIDING BOARD, NHAN L NEED WC FOR DC, SPOUSE IS PRESENT AND SUPPORTIVE. REPORTS INCREASED SWELLI NG TO LLE OT team conference update: P t progressing toward goals, limited by R BKA, pain, deficits w adls and mobility Adls: I to Total assist, Xfers: Moderate assist Rec : Drop arm BSC, sliding board, HHOT ST team conference update: CM or SW team conference upd ate: PATIENT IS FROM HOME WITH A SUPPORTIVE SPOUSE. PLAN TO DC TO HOME WITH NEEDED DME AND HOME HEAL TH Other discipline update 1: P.O INTAKE: 75-100% O F RENAL 3 CARB DIET. Other discipline update 2: Other discipline update 3: REHAB DC GOALS: Patient's identified discharge goal: "I WOULD LI KE TO GO HOME WITH MY FAMILY" PT: PATIENT WILL LIKE TO GET STRONGER TO DC HOME AND GO BACK TO WORK ONCE HE RECEIVED HIS PROSTHETIC OT: "get stronger" Eating discharge goal: Independent (6) Shower/bathe self discharge goal: Independent (6) Upper body dressing discharge goal: Independent (6) Lower body dressing discharge goal: Independent (6) Chair/bed to chair transfer discharge goal: Set up/clean-up only (5) Transfer on/off toilet or commode discharge goa l: Supervise/touch asst (4) Walking 50 feet with two turns discharge goal: Med cond/safety concern Walking 150 feet discharge goal: Med cond/safet y concern Four steps discharge goal: Med cond/safety conc mell Twelve steps discharge goal: Med cond/safety co ncern [place] 150 feet discharge goal: Independent ( 6) Goal 1 - Bowel function: PATIENT WILL REMAIN CON TINENT OF BOWEL Goal 2 - Bladder function: PATIENT WILL REGAIN B LADDER CONTROL Nursing goal 3: PATIENT WILL BE FREE FROM FALLS DURING STAY Nursing goal 4: PATIENT WILL MAINTAIN SKIN INTEG RITY Nursing goal 5: DISCHARGE PLANNING: Barriers to discharge: Fall risk, Endurance, Ofelia n, Caregiver, NWB RLE, DIFFICULTY WITH TRANSFERS Strategies for D/C barriers: Fall recovery train ing, Evaluate pain control, Scheduled rest breaks, LE EX, WC MOB, TRANSFER T RAINING, CAREGIVER TRAINING Estimated length of stay in days: 17 Anticipated discharge date: 09/19/22 Discharge date adjustment comment: Identified financial and/or community resource n eeds: Family/Caregiver training days: [place] day (DATE): 09/18/22 Expected discharge destination: Home Anticipated services upon discharge: Physical th erapy, Nursing, Occupational therapy, Home health Anticipated discharge equipment: Drop arm bedsid e commode, sliding board Impairment group: amputation of limb NOTE Document ONLY ONE Impairment Group Amputation of limb: unilateral lower limb (R BK A) Etiologic diagnosis: 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 IRF cont stay criteria See my note at 1526 RPT #:[id number] END OF REPORT 2022-09-09 12:13:00-00:[address] [facility] ([facility]) Podiatry Progress Note REPORT#:[id number] REPORT STATUS: Signed DATE:09/09/22 TIME: 1213 PATIENT: KARMA ROWLAND UNIT #: [id number] ROOM/BED: [place] [address] : 61 AGE: 56 SEX: M ATTEND: Fredy Vences MD ADM AUTHOR: Liam Pedersen DPM * ALL edits or amendments must be made on the [employer] document * Subjective Chief complaint: left heel ulcer. left ankle pain Patient reports: no chest pa in, no cough, no dizziness, no fatigue, no headache, no nausea Objective General VS: Last Documented: Result Date Time Pulse Ox 94 09/09 0709 B/P 140/71 09/09 0709 B/P Mean 93.7 09/09 0709 O2 Delivery Room air 09/09 0709 Temp 36.8 09/09 0709 Pulse 88 09/09 0709 Resp 17 09/09 0709 O2 Flow Rate 2 09/08 1322 PATIENT WEIGHT: Weight (lb): 165 Weight (oz): 5.55 Weight (kg): 75.000 Medications: Active Meds + DC'd Last 24 Hrs Ferric Sodium Gluconate Complex (FERRLECIT) 125 MG DAILY IV Sodium Chloride (SODIUM CHLORIDE 0.9%) 100 ML Folic Acid (FOLIC ACID) 2 MG DAILY PO Multivitamins (TAB-A-MOHAN) 1 TAB DAILY PO Carvedilol (COREG) 12.5 MG C BK DIN PO Magnesium Sulfate (MAGNESIUM SULFATE 2GM/SWFI 50 ML) 50 ML ONCE ONE IV ( DC) Hydromorphone HCl (DILAUDID) 0.5 MG Q6H PRN PRN IV Vancomycin HCl (VANCOMYCIN HCL) 500 MG Q24H IV ( DC) Sodium Chloride (SODIUM CHLORIDE 0.9% 100 ML) 1 00 ML Propofol (DIPRIVAN 200MG/20ML INJECTION) 20 ML . STK-MED ONE IV (DC) Fentanyl Citrate (SUBLIMAZE) 0 .STK-MED ONE .ROU TE (DC) Propofol (DIPRIVAN 200MG/20ML INJECTION) 20 ML . STK-MED ONE IV (DC) Lidocaine HCl (XYLOCAINE) 0 .STK-MED ONE .ROUTE (DC) Fentanyl Citrate (SUBLIMAZE) 100 MCG PACU Q10MIN PRN PRN IV (DC) Fentanyl Citrate (SUBLIMAZE) 50 MCG PACU Q10MIN PRN PRN IV (DC) Hydralazine HCl (APRESOLINE) 2 MG PACU Q10MIN NV N PRN IV (DC) Insulin Human Lispro (HUMALOG) 0 PACU ONCE PRN S UBQ (DC) Labetalol HCl (LABETALOL HCL) 5 MG PACU Q10MIN P RN PRN IV (DC) Ondansetron HCl (ZOFRAN) 4 MG PACU ONCE PRN IV ( DC) Carvedilol (COREG) 3.125 MG C BK DIN PO (DC) Insulin Glargine (Lantus/Semglee) 5 UNIT BEDTIME SUBQ Furosemide (LASIX 20MG INJ) 20 MG BLOOD-DOSE BET WEEN IV (CKD) Sodium Chloride (SODIUM CHLORIDE) 10 ML ASDIR IV Furosemide (LASIX) 20 MG DAILY PO Pantoprazole Sodium (PROTONIX) 40 MG Q12HR IV Polyethylene Glycol (MIRALAX) 17 GM DAILY PO Sennosides (Senna Lax 8.6 MG TABLET) 8.6 MG MADALYN Y PO Sodium Chloride (SODIUM CHLORIDE) 10 ML ASDIR NV N IV Amitriptyline HCl (ELAVIL) 25 MG BEDTIME PO Mupirocin (BACTROBAN 2% 22 GM OINTMENT) 1 APPLIC BID NASAL (DC) Zinc Oxide (ZINC OXIDE 30 GM OINTMENT) 1 APPLIC DAILY TOPICAL Sterile Water (WATER FOR IRRIGATION) DRESSING CH EGLACIO ASDIR PRN IRR Insulin Human Lispro (HUMALOG) 0 AC HS SUBQ Dextrose/Water (DEXTROSE 10% IN WATER) 125 ML DIR PRN IV (CKD) Dextrose/Water (DEXTROSE 10% IN WATER) 250 ML DIR PRN IV (CKD) Glucagon (GLUCAGON) 1 MG ASDIR PRN IM Hydrocodone Bitart/Acetaminophen (NORCO 10/325) 1 TAB Q4H PRN PRN PO Hydromorphone HCl (DILAUDID) 1 MG Q6H PRN PRN IV (DC) Lidocaine (LIDODERM) 1 PATCH DAILY TOPICAL Insulin Human Lispro (HUMALOG) 5 UNIT AC SUBQ Miscellaneous Information (VANCOMYCIN PHARMACY T O DOSE) 1 EACH ASDIR IV (CKD) Heparin Sodium (HEPARIN 5000 UNITS/ML) 5,000 UNI T Q8HR SUBQ (r) Cefepime HCl (MAXIPIME) 1 GM Q6H IV Sodium Chloride (SODIUM CHLORIDE) 10 ML Acetaminophen (TYLENOL) 650 MG Q6H PRN PRN PO Bisacodyl (DULCOLAX) 10 MG DAILY PRN PRN RECTAL Docusate Sodium (COLACE) 100 MG Q12H PRN PRN PO Hydralazine HCl (APRESOLINE) 10 MG Q6H PRN PRN I V Ondansetron HCl (ZOFRAN) 4 MG Q6H PRN PRN IV I O: 24 hour I O ending at 0700: 09/09 0700 09/08 1900 Intake Total 250.00 Output Total 850 Balance -850 250.00 Intake, IV 250.00 Number 1 Bowel Movements Number 0 Incontinent Voids Number Voids 0 Output, Urine 850 Dietitian nutrition assessment The data set between the solid lines has been im ported from the dietitian's assessment. BMI Calculated: 26.7 Nutrition related diagnosis: Nutrition diagnosis details: Nutrition problem: Altered nutrition labs Nutrition etiology: DM Nutrition signs and symptoms: HYPER/HYPOGLYCEMIA , A1C >14 Nutrition prescription: CONTINUE DM DIET Dietitian name: Klaus Kaiser, DIET Assessment completed: 09/03/22 Physical Exam General appearance: alert, awake, oriented, plea delia, no respiratory distress Wound/incision: Location: left foot Site condition: dp/pt 2/4 left. light touch dec reased left foot. ulcer starting at posterior left heel. eccymosis noted . early likely stage 1. left ankle has edema. pain with aggressive ROM left a nkle. LE vascular pulse assess: 2+ L posterior tibialis, 2+ L dorsalis pedis Considered stroke alert: no Ulcer: Location: DTI dorsal left midfoot Results Findings/Data: Laboratory Tests: 09/09 09/09 09/09 09/08 1049 0549 0508 6145 Chemistry Sodium (134 - 147 mEq/L) 136 Potassium (3.4 - 5.0 mEq/L) 4.2 Chloride (100 - 108 mEq/L) 107 Carbon Dioxide (21 - 33 mEq/l) 22 Anion Gap (0 - 20) 11 BUN (7 - 18 mg/dL) 23 H Creatinine (0.6 - 1.3 mg/dL) 1.5 H Glomerular Filtr Rate (90 - 95) 53.6 L Glucose (70 - 110 mg/dL) 125 H POC Glucose (70 - 110 MG/DL) 90 128 H 106 Calcium (8.0 - 10.5 mg/dL) 8.2 Phosphorus (2.5 - 4.9 MG/DL) 4.0 Magnesium (1.80 - 2.40 mg/dL) 1.89 Hematology WBC (4.5 - 11.0 x10 3/uL) 9.2 RBC (4.00 - 5.60 x10 6/uL) 3.01 L Hgb (12.5 - 16.9 g/dL) 8.5 L Hct (37.5 - 50.7 %) 25.9 L MCV (81.0 - 99.0 fL) 86.0 MCH (27.0 - 33.0 pg) 28.2 MCHC (33.0 - 37.0 g/dL) 32.8 L RDW (11.5 - 14.5 %) 13.8 Plt Count (150 - 400 x10 3/uL) 263 MPV (7.0 - 9.0 fL) 9.7 H Neut % (Auto) (56.0 - 77.0 %) 69.1 Lymph % (Auto) (14.0 - 32.0 %) 16.1 Boundary % (Auto) (4.8 - 9.0 %) 9.2 H Eos % (Auto) (0.3 - 3.7 %) 4.7 H Baso % (Auto) (0.0 - 2.0 %) 0.4 Neut # (Auto) (2.0 - 7.6 x10 3/uL) 6.38 Lymph # (Auto) (1.0 - 3.8 x10 3/uL) 1.49 Boundary # (Auto) (0.1 - 0.8 x10 3/uL) 0.85 H Eos # (Auto) (0.0 - 0.2 x10 3/uL) 0.43 H Baso # (Auto) (0.0 - 0.2 x10 3/uL) 0.04 Abs Immat Gran (auto) (0.00 - 0.03 x10 3/uL) 0. 05 H Add Manual Diff NO Immature Gran % (0.0 - 2.0 %) 0.5 Nucleated RBC % (0 - 0 %) 0.0 Nucleated RBCs # (Man) (0.0 - 0.1 x10 3/uL) 0. 00 09/08 09/08 09/08 1828 1611 1318 Chemistry POC Glucose (70 - 110 MG/DL) 120 H 101 Iron (35 - 150 mcg/dL) 10 L TIBC (260 - 445 mcg/dL) 138 L % Saturation (14 - 34 %) 7.2 L Unsat Iron Binding (mcg/dL) 128 Ferritin (23.9 - 336.2 ng/mL) 700.5 H Lactate Dehydrogenase (87 - 241 IUnits/L) 193 Hematology Retic Count (auto) (0.3 - 2.3 %) 1.3 Diagnosis, Assessment Plan Free Text A P: DM with neuropathy early decub ulcer left heel OA/edema left ankle DTI dorsal left midfoot zinc oxide to foot and heel foam to heel on IV abx offloading boot oralia wraps to ankle, only when OOB with therapy. Consultants: cardiology, endocrinology, hospital ist, infectious disease, podiatry Electronically Signed by Liam Pedersen DPM on 0 09/09/22 at 1214 RPT #:[id number] END OF REPORT 2022-09-09 11:45:00-00:00 [facility] ([facility]) Infectious Dis. Progress Note REPORT#:[id number] REPORT STATUS: Signed DATE:09/09/22 TIME: 1145 PATIENT: KARMA ROWLAND UNIT #: [id number] ROOM/BED: [place] [id number] : 61 AGE: 56 SEX: M ATTEND: Fredy Vences MD ADM AUTHOR: Merry Wolff MD * ALL edits or amendments must be made on the el [employer]/computer document * Subjective HPI: PT is a 56yr old male with h istory of diabetes mellitus type 2, hypertension who was admitted with altered mental status and righ t-sided foot infection. According to him, he noticed a blister on his right foot around 3 days prior to presentation. His foot got progressively more sw ollen and erythema extended proximally to his lateral foot and ankle. CT abd omen and pelvis with contrast is concerning for possible prostate abscess. CT of lower extremity without contrast shows extensive sof t tissue edema with mottled gas in the subcutaneous and intramuscular compartments of the foot, comp atible with gas-forming infection. Patient's blood cultures have come ba ck positive for MRSA in 2 out of 2 sets. PT has had persistent (+)Ve cx for MR 08/18- 08/22. He underwent a debridement of his foot on 08/19 and cx g rew MRSA. PT was started on Vancomycin and clindamycin on 08/18. His MRI showed a prosta te abscess. 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 Pt underwent a transrectal aspiration and unroofing of prostate abscess 08/26 and cx grew Citrobacter, Enterococcus, MRSA. 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 JIMENA done 09/02. Pt was tr ansferred to Rehab on 09/02. 09/08 doing well, no changes overnight, plan for EGD/colon today 09/09 doing well, dressing changed from r ight BKA; rob intact, no drainage, no erythema no swelling Patient reports: Yes: pain controlled. No: cough, diarrhea, fever , headache, nausea, shortness of breath, vomiting. Portions of this section janice kendall scribed by Jill Quintero on 09/09/22 at 1145 Objective General VS/I O: Vital Signs Date Temp Pulse Resp B/P B/P Mean Pulse Ox FiO2 09/08-09/09 97.7-98.2 80-91 10-17 131-170/64-86 87.1-106.2 94-99 Last Documented: Result Date Time Pulse Ox 94 09/09 0709 B/P 140/71 09/09 0709 B/P Mean 93.7 09/09 0709 O2 Delivery Room air 09/09 0709 Temp 98.2 09/09 0709 Pulse 88 / 0709 Resp 17 09/09 0709 O2 Flow Rate 2 09/08 1322 Vital Signs: Date Time Temp Pulse Resp B/P B/P Pulse O2 O2 F low FiO2 Mean Ox Delivery Rate 09/09 0709 98.2 88 17 140/71 93.7 94 Room air 09/09 0021 97.7 87 16 133/64 87.1 96 09/08 2004 97.9 91 15 150/73 98.9 96 09/08 1632 88 159/80 106.2 98 09/08 1345 98.2 85 12 163/85 96 Room air 09/08 1340 85 14 157/86 98 09/08 1335 87 14 155/84 98 09/08 1330 80 16 152/80 99 09/08 1325 82 14 146/75 99 Room air 09/08 1322 Nasal 2 cannula 09/08 1322 98.0 80 10 131/71 95 Nasal 2 cannula 09/08 1225 90 12 170/85 99 Room air 24 hour I O ending at 0700: 09/09 0700 09/08 1900 Intake Total 250.00 Output Total 850 Balance -850 250.00 Intake, IV 250.00 Number 1 Bowel Movements Number 0 Incontinent Voids Number Voids 0 Output, Urine 850 PATIENT WEIGHT: Weight (lb): 165 Weight (oz): 5.55 Weight (kg): 75.000 Antibiotic start date: Antibiotic: vancomycin Start Date:09/03 Antibiotic: daptomycin Start Date:08/28-09/03 Antibiotic: cefepime Start Date:09/01- Antibiotic: merrem Start Date:08/27-09/01 Physical Exam General appearance: alert, awake, oriented Head/Eyes: atraumatic, clear cornea, EOMI, felisa l conjunctiva/sclera, normal eyelids/periorb, normocephalic, PERRL ENT: moist mucosal membranes, normal dentition Neck: full range of motion Cardiovascular: normal heart sounds, regular rat e rhythm Respiratory: clear to auscultation, aerating wel l Abdomen: non-tender, normal bowel sounds, soft Extremities: moves all, right BKA Left foot woun d +dressing in place 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 X 3 Considered stroke alert: no Skin: dry, intact Results Findings/Data: Laboratory Tests 09/09 09/09 09/09 09/08 09/08 1049 0524 0500 1955 1828 Chemistry Sodium (134 - 147 mEq/L) 136 Potassium (3.4 - 5.0 mEq/L) 4.2 Chloride (100 - 108 mEq/L) 107 Carbon Dioxide (21 - 33 mEq/l) 22 Anion Gap (0 - 20) 11 BUN (7 - 18 mg/dL) 23 H Creatinine (0.6 - 1.3 mg/dL) 1.5 H Glomerular Filtr Rate (90 - 95) 53.6 L Glucose (70 - 110 mg/dL) 125 H POC Glucose (70 - 110 MG/DL) 90 128 H 106 Calcium (8.0 - 10.5 mg/dL) 8.2 Phosphorus (2.5 - 4.9 MG/DL) 4.0 Magnesium (1.80 - 2.40 mg/dL) 1.89 Iron (35 - 150 mcg/dL) 10 L TIBC (260 - 445 mcg/dL) 138 L % Saturation (14 - 34 %) 7.2 L Unsat Iron Binding (mcg/dL) 128 Ferritin (23.9 - 336.2 ng/mL) 700.5 H Lactate Dehydrogenase (87 - 241 193 IUnits/L) 09/08 09/08 1611 1318 Chemistry POC Glucose (70 - 110 MG/DL) 120 H 101 Laboratory Tests 09/09 09/08 0500 1828 Hematology WBC (4.5 - 11.0 x10 3/uL) 9.2 RBC (4.00 - 5.60 x10 6/uL) 3.01 L Hgb (12.5 - 16.9 g/dL) 8.5 L Hct (37.5 - 50.7 %) 25.9 L MCV (81.0 - 99.0 fL) 86.0 MCH (27.0 - 33.0 pg) 28.2 MCHC (33.0 - 37.0 g/dL) 32.8 L RDW (11.5 - 14.5 %) 13.8 Plt Count (150 - 400 x10 3/uL) 263 MPV (7.0 - 9.0 fL) 9.7 H Neut % (Auto) (56.0 - 77.0 %) 69.1 Lymph % (Auto) (14.0 - 32.0 %) 16.1 Boundary % (Auto) (4.8 - 9.0 %) 9.2 H Eos % (Auto) (0.3 - 3.7 %) 4.7 H Baso % (Auto) (0.0 - 2.0 %) 0.4 Neut # (Auto) (2.0 - 7.6 x10 3/uL) 6.38 Lymph # (Auto) (1.0 - 3.8 x10 3/uL) 1.49 Boundary # (Auto) (0.1 - 0.8 x10 3/uL) 0.85 H Eos # (Auto) (0.0 - 0.2 x10 3/uL) 0.43 H Baso # (Auto) (0.0 - 0.2 x10 3/uL) 0.04 Abs Immat Gran (auto) (0.00 - 0.03 x10 3/uL) 0. 05 H Add Manual Diff NO Immature Gran % (0.0 - 2.0 %) 0.5 Nucleated RBC % (0 - 0 %) 0.0 Nucleated RBCs # (Man) (0.0 - 0.1 x10 3/uL) 0.0 0 Retic Count (auto) (0.3 - 2.3 %) 1.3 Laboratory Tests: 09/09 09/09 09/09 09/08 09/08 1049 0524 0500 1955 1828 Chemistry Sodium (134 - 147 mEq/L) 136 Potassium (3.4 - 5.0 mEq/L) 4.2 Chloride (100 - 108 mEq/L) 107 Carbon Dioxide (21 - 33 mEq/l) 22 Anion Gap (0 - 20) 11 BUN (7 - 18 mg/dL) 23 H Creatinine (0.6 - 1.3 mg/dL) 1.5 H Glomerular Filtr Rate (90 - 95) 53.6 L Glucose (70 - 110 mg/dL) 125 H POC Glucose (70 - 110 MG/DL) 90 128 H 106 Calcium (8.0 - 10.5 mg/dL) 8.2 Phosphorus (2.5 - 4.9 MG/DL) 4.0 Magnesium (1.80 - 2.40 mg/dL) 1.89 Iron (35 - 150 mcg/dL) 10 L TIBC (260 - 445 mcg/dL) 138 L % Saturation (14 - 34 %) 7.2 L Unsat Iron Binding (mcg/dL) 128 Ferritin (23.9 - 336.2 ng/mL) 700.5 H Lactate Dehydrogenase (87 - 241 193 IUnits/L) Hematology WBC (4.5 - 11.0 x10 3/uL) 9.2 RBC (4.00 - 5.60 x10 6/uL) 3.01 L Hgb (12.5 - 16.9 g/dL) 8.5 L Hct (37.5 - 50.7 %) 25.9 L MCV (81.0 - 99.0 fL) 86.0 MCH (27.0 - 33.0 pg) 28.2 MCHC (33.0 - 37.0 g/dL) 32.8 L RDW (11.5 - 14.5 %) 13.8 Plt Count (150 - 400 x10 3/uL) 263 MPV (7.0 - 9.0 fL) 9.7 H Neut % (Auto) (56.0 - 77.0 %) 69.1 Lymph % (Auto) (14.0 - 32.0 %) 16.1 Boundary % (Auto) (4.8 - 9.0 %) 9.2 H Eos % (Auto) (0.3 - 3.7 %) 4.7 H Baso % (Auto) (0.0 - 2.0 %) 0.4 Neut # (Auto) (2.0 - 7.6 x10 3/uL) 6.38 Lymph # (Auto) (1.0 - 3.8 x10 3/uL) 1.49 Boundary # (Auto) (0.1 - 0.8 x10 3/uL) 0.85 H Eos # (Auto) (0.0 - 0.2 x10 3/uL) 0.43 H Baso # (Auto) (0.0 - 0.2 x10 3/uL) 0.04 Abs Immat Gran (auto) (0.00 - 0.03 0.05 H x10 3/uL) Add Manual Diff NO Immature Gran % (0.0 - 2.0 %) 0.5 Nucleated RBC % (0 - 0 %) 0.0 Nucleated RBCs # (Man) (0.0 - 0.1 0.00 x10 3/uL) Retic Count (auto) (0.3 - 2.3 %) 1.3 09/08 09/08 09/08 09/08 09/08 1611 1318 1045 1033 0616 Chemistry POC Glucose (70 - 110 MG/DL) 120 H 101 99 101 Toxicology Random Vancomycin (mcg/mL) 15.8 09/08 09/07 09/07 09/07 0615 2238 2110 1554 Chemistry Sodium (134 - 147 mEq/L) 135 Potassium (3.4 - 5.0 mEq/L) 4.6 Chloride (100 - 108 mEq/L) 107 Carbon Dioxide (21 - 33 mEq/l) 22 Anion Gap (0 - 20) 10 BUN (7 - 18 mg/dL) 22 H Creatinine (0.6 - 1.3 mg/dL) 1.4 H Glomerular Filtr Rate (90 - 95) 58.3 L Glucose (70 - 110 mg/dL) 100 POC Glucose (70 - 110 MG/DL) 135 H 127 H 112 H Calcium (8.0 - 10.5 mg/dL) 8.1 Magnesium (1.80 - 2.40 mg/dL) 1.58 L Total Creatine Kinase (46 - 171 Units/L) 22 L Albumin (3.4 - 5.0 g/dL) 1.30 L Prealbumin (16.0 - 40.0 mg/dL) < 5.0 L Hematology WBC (4.5 - 11.0 x10 3/uL) 9.1 RBC (4.00 - 5.60 x10 6/uL) 3.05 L Hgb (12.5 - 16.9 g/dL) 8.5 L Hct (37.5 - 50.7 %) 26.2 L MCV (81.0 - 99.0 fL) 85.9 MCH (27.0 - 33.0 pg) 27.9 MCHC (33.0 - 37.0 g/dL) 32.4 L RDW (11.5 - 14.5 %) 13.5 Plt Count (150 - 400 x10 3/uL) 231 MPV (7.0 - 9.0 fL) 9.6 H Neut % (Auto) (56.0 - 77.0 %) 73.3 Lymph % (Auto) (14.0 - 32.0 %) 13.7 L Boundary % (Auto) (4.8 - 9.0 %) 7.2 Eos % (Auto) (0.3 - 3.7 %) 4.8 H Baso % (Auto) (0.0 - 2.0 %) 0.3 Neut # (Auto) (2.0 - 7.6 x10 3/uL) 6.64 Lymph # (Auto) (1.0 - 3.8 x10 3/uL) 1.24 Boundary # (Auto) (0.1 - 0.8 x10 3/uL) 0.65 Eos # (Auto) (0.0 - 0.2 x10 3/uL) 0.43 H Baso # (Auto) (0.0 - 0.2 x10 3/uL) 0.03 Abs Immat Gran (auto) (0.00 - 0.03 x10 3/uL) 0. 06 H Add Manual Diff NO Immature Gran % (0.0 - 2.0 %) 0.7 Nucleated RBC % (0 - 0 %) 0.0 Nucleated RBCs # (Man) (0.0 - 0.1 x10 3/uL) 0.0 0 Medication(s) Ordered: Anti-Infective Agents Sig/Jan Start time Last Medication Dose Route Stop Time Status Admin Vancomycin HCl 500 MG Q24H 09/08 1300 DC 09/08 Sodium Chloride 100 ML IV 09/25 1259 1403 Miscellaneous 1 EACH ASDIR 09/03 0130 CKD Information IV 10/03 0129 Cefepime HCl 1 GM Q6H 09/02 2100 AC 09/09 Sodium Chloride 10 ML IV 09/13 205 0740 Blood Formation,Coagulation Sig/Jan Start time Last Medication Dose Route Stop Time Status Admin Ferric Sodium 125 MG DAILY 09/09 0900 AC 09/09 Gluconate Complex IV 09/16 0959 1006 Sodium Chloride 100 ML Heparin Sodium 5,000 UNIT Q8HR 09/02 2200 r SUBQ 10/02 2159 0531 Cardiovascular Drugs Sig/Jan Start time Last Medication Dose Route Stop Time Status Admin Carvedilol 12.5 MG C BK DIN 09/09 0800 AC 09/09 PO 10/08 0759 0742 Lidocaine HCl 0 .STK-MED ONE 09/08 1232 DC .ROUTE Hydralazine HCl 2 MG PACU Q10MIN PRN PRN 09/08 0915 DC IV 09/08 1711 Labetalol HCl 5 MG PACU Q10MIN PRN PRN 09/08 09 15 DC IV 09/08 1711 Carvedilol 3.125 MG C BK DIN 09/08 0800 DC 08/23 7 PO 10/08 0759 0746 Hydralazine HCl 10 MG Q6H PRN PRN 09/01 1330 AC IV 10/01 1329 Central Nervous System Agents Sig/Jan Start time Last Medication Dose Route Stop Time Status Admin Magnesium Sulfate 50 ML ONCE ONE 09/08 1715 DC 09/08 IV 09/08 1914 1728 Hydromorphone HCl 0.5 MG Q6H PRN PRN 09/08 1345 AC 09/08 IV 09/21 1300 2256 Propofol 20 ML .STK-MED ONE 09/08 1243 DC IV Fentanyl Citrate 0 .STK-MED ONE 09/08 1233 DC .ROUTE Propofol 20 ML .STK-MED ONE 09/08 1233 DC IV Fentanyl Citrate 100 MCG PACU Q10MIN PRN PRN 0915 DC IV 09/08 1711 Fentanyl Citrate 50 MCG PACU Q10MIN PRN PRN 0915 DC IV 09/08 1711 Amitriptyline HCl 25 MG BEDTIME 09/04 2100 AC 0 09/08 PO 10/04 2059 2041 Hydrocodone Bitart/ 1 TAB Q4H PRN PRN 09/03 140 0 AC 09/08 Acetaminophen PO 10/18 1300 1850 Hydromorphone HCl 1 MG Q6H PRN PRN 09/03 1400 D C 09/07 IV 10/18 1300 2256 Acetaminophen 650 MG Q6H PRN PRN 09/01 1330 AC PO 10/01 1329 Electrolytic, Caloric, And Daniel Sig/Jan Start time Last Medication Dose Route Stop Time Status Admin Furosemide 20 MG BLOOD-DOSE BETWEEN 09/05 1245 CKD IV 10/05 1244 Sodium Chloride 10 ML ASDIR 09/05 1245 AC IV 10/05 1244 Furosemide 20 MG DAILY 09/05 0900 AC 09/09 PO 10/05 0859 0740 Sodium Chloride 10 ML ASDIR PRN 09/05 0630 AC 0 09/09 IV 10/05 0629 0741 Sterile Water See Dose ASDIR PRN 09/03 2030 AC Insts (1) IRR 10/03 202 Dextrose/Water 125 ML ASDIR PRN 09/03 1515 CKD IV 10/03 1514 Dextrose/Water 250 ML ASDIR PRN 09/03 1515 CKD IV 10/03 1514 Gastrointestinal Drugs Sig/Jan Start time Last Medication Dose Route Stop Time Status Admin Ondansetron HCl 4 MG PACU ONCE PRN 09/08 0915 D C IV 09/08 1711 Pantoprazole Sodium 40 MG Q12HR 09/05 0900 AC 09/09 IV 10/05 0859 0741 Polyethylene Glycol 17 GM DAILY 09/05 09 AC 0 09/07 PO 10/05 0859 0849 Sennosides 8.6 MG DAILY 09/05 0900 AC 09/07 PO 10/05 0859 0848 Bisacodyl 10 MG DAILY PRN PRN 09/01 1330 AC RECTAL 10/01 1329 Docusate Sodium 100 MG Q12H PRN PRN 09/01 1330 AC PO 10/01 1329 Ondansetron HCl 4 MG Q6H PRN PRN 09/01 1330 AC IV 10/01 1329 Hormones And Synthetic Substit Sig/Jan Start time Last Medication Dose Route Stop Time Status Admin Insulin Human Lispro 0 PACU ONCE PRN 09/08 0915 DC SUBQ 09/08 1711 Insulin Glargine 5 UNIT BEDTIME 09/07 2100 AC 0 09/07 SUBQ 10/07 2059 2233 Insulin Human Lispro 0 AC HS 09/03 1630 AC 08/23 5 SUBQ 10/03 1629 2229 Glucagon 1 MG ASDIR PRN 09/03 1515 AC IM 10/03 1514 Insulin Human Lispro 5 UNIT AC 09/03 0730 AC SUBQ 10/03 0729 0743 Local Anesthetics (Parenteral) Sig/Jan Start time Last Medication Dose Route Stop Time Status Admin Lidocaine 1 PATCH DAILY 09/03 0900 AC 09/09 TOPICAL 10/03 0859 0743 Skin And Mucous Membrane Agent Sig/Jan Start time Last Medication Dose Route Stop Time Status Admin Mupirocin 1 APPLIC BID 09/04 2100 DC 09/09 NASAL 09/09 0901 0744 Zinc Oxide 1 APPLIC DAILY 09/04 899 AC 09/09 TOPICAL 10/04 0859 0744 Vitamins Sig/Jan Start time Last Medication Dose Route Stop Time Status Admin Folic Acid 2 MG DAILY 09/09 899 AC 09/09 PO 10/09 0859 0741 Multivitamins 1 TAB DAILY 09/09 899 AC 09/09 PO 10/09 0859 0741 Dose Instructions: (1)Sterile Water: DRESSING CHANGE Portions of this section wer e scribed by Jill Quintero on 09/09/22 at 1145 Diagnosis, Assessment Plan Free Text A P: *MRSA bacteremia -Initial blood cultures from 08/18/2022 positive for MRSA in 2 out of 2 sets. -Repeat blood cultures 08/21/2022 are already po sitive for MRSA in 2 out of 2 sets, suggesting persistent high-grade bacteremi a. -TTE 08/18/2022 negative for any obvious vegetat ions. -08/28 neg -JIMENA 09/02 neg *Prostatic abscess -s/p transrectal aspiration and unroofing on 08/26 -cx MRSA, citrobacter (r-cefazolin) Enterococcus raffinosus (S-amp,pcn, vancomycin), bacteriodes *ERIKA *Hyponatremia *Diabetic neuropathy *Diabetes mellitus type 2 *Hypertension *anemia 09/08 -cont on Cefepime and vancomycin til 5/3 for kellen atment of Prostate abscess -follow esr and crp -EGD today 09/09 -on cefepime and vancomycin til 5/3 for treatmen t of prostate abscess Consultants: cardiology, endocrinology, hospital ist, infectious disease, podiatry Portions of this section wer e scribed by Jill Quintero on 09/09/22 at 1145 at 2050 RPT #:[id number] END OF REPORT 2022-09-09 11:38:00-00:[address] [facility] ([facility]) Gastroenterology Progress Note REPORT#:[id number] REPORT STATUS: Signed DATE:09/09/22 TIME: 1138 PATIENT: KARMA ROWLAND UNIT #: [id number] ROOM/BED: [place] [address] : 63 AGE: 56 SEX: M ATTEND: Fredy Vences MD ADM AUTHOR: Kassie Avitia MD * ALL edits or amendments must be made on the el [employer] document * Subjective HPI: Patient is a 56-year-old male with history of di abetes mellitus type 2 and hypertension who was initially admitted for alte red mental status and right- sided foot infection. 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 The p atient is anemic with current Hgb 7.1. He has received a total of 3 un its pRBCs during this hospitalization. KUB on 09/04 was negative for acute GI process. T he patient denies overt GIB, dark tarry stools, nausea, a bdominal pain, or vomiting. He has never had EGD or colonoscopy. 09/06: No complaints today. Hemoglobin stable. No overt GI bleed. Plan for colonoscopy and endoscopy on Thursday 09/07: No complaints today. No overt GI bleed. Pl anning for colonoscopy and endoscopy tomorrow 09/08: EGD mild gastritis. colonoscopy rectal eugenia yp s/p snare. No other abnormalities 09/09: doing well. Seen at the gym. No bleeding. Objective Physical Exam HEENT: atraumatic, normocephalic Neck: full range of motion, non-tender Respiratory: symmetric expansion, no distress Abdomen: non-tender, normal bowel sounds, soft, no distention, no guarding Extremities: right BKA Considered stroke alert: no Skin: dry Diagnosis, Assessment Plan Free Text A P: 1. Positive FOBT-and anemia: The patient denies overt GIB, dark tarry stools, nausea, abdominal pain, or vomiting. He is not o n anticoagulation therapy. -Continue PPI. The patient has never had EGD or colonoscopy s/p EGD and colonoscopy. EGD showed mild gastrit is. Colonoscopy showed rectal polyp that was resected by snare. no evidence of bleeding. Anemia likely secondary to chronic kidney diseas e. Can consider video capsule endoscopy as outpt Will follow Consultants: cardiology, endocrinology, hospital ist, infectious disease, podiatry at 1140 RPT #:[id number] END OF REPORT 2022-09-09 10:43:00-00:[address] [facility] ([facility]) Pharmacy Prog.Note-Vancomycin REPORT#:[id number] REPORT STATUS: Signed DATE:09/09/22 TIME: 1043 PATIENT: KARMA ROWLAND UNIT #: [id number] ROOM/BED: [place] [address] : 63 AGE: 56 SEX: M ATTEND: Fredy Vences MD ADM AUTHOR: Joselyn Stock [facility] * ALL edits or amendments must be made on the [employer] document * Vancomycin Vancomycin Medication Therapy Goal: Random 15-20 mcg/mL Indication for treatment: OM and MRSA Bacteremia VS and I/O: Vital Signs Date Temp Pulse Resp B/P B/P Mean Pulse Ox FiO2 09/06-09/09 97.3-98.8 80-98 10-20 131-177/64-90 0.0-118.8 94-99 72 hours ending at 0700 09/09 0600 09/08 1900 09/08 0709/07 1900 09/06 0700 1900 Intake 250.00 2000 Total Output 659 111 1243 1000 Total Balance -850 250.00 1400 -1500 -1000 Intake, IV 250.00 Intake, 2000 Oral Number 1 2 Bowel Movements Number 0 0 0 0 Incontinen t Voids Number 0 0 0 0 Voids Output, 934 672 1859 1000 Urine 72 Hour I O Total 09/09 0709/08 0700 09/07 0700 Intake Total 250.00 2000 Output Total 667 667 9848 Balance -600.00 1400 -2500 Labs: Laboratory Tests: 09/08 09/07 09/06 1045 0510 1553 Toxicology Vancomycin Trough (10.0 - 20.0 mcg/mL) 18.9 Random Vancomycin (mcg/mL) 15.8 14.7 Laboratory Test : 09/09 09/08 09/07 0500 0615 0510 Chemistry BUN (7 - 18 mg/dL) 23 H 22 H Creatinine (0.6 - 1.3 mg/dL) 1.5 H 1.4 H 1.4 H Hematology WBC (4.5 - 11.0 x10 3/uL) 9.2 9.1 Treatment plan: consult Regimen: 56yo male with PMH of T2DM and HTN who was admit carlos with AMS and right-sided foot infection. According to him, he noticed a blister on his right foot around 3 days prior to presentation on 08/18. His foot g ot progressively more swollen and erythema extended proximally to his lateral foot and ankle. Patient's BCx had persistent BCx for MRSA 08/18- 08/22. He underwent a debridement of his foot on 08/19 and Cx grew MRSA. Pt was started on Vancomycin and clindamycin on 08/18. Patient is s/p ICU stay with merrem/daptomycin. ID adjusted regimen to cefepime/ vancomycin. Pharmacy consulted to dose vancomyci n. Consulting provider: Merry Wolff Indication: Osteomyelitis of the Talus, Calcaneu s, and Navicular Bone; MRSA Bacteremia; Prostatic Abscess Goal Random: 15-20 mcg/mL Concomitant Abx: Cefepime Duration of Therapy: 09/24/22 Assessment: Labs/Vitals * Afebrile/24hrs, WBC 9.2, BUN/SCr 10/0.9, UOP/2 4hrs 2 voids Micro * MRSA nares (09/03) positive * WCx (08/26) Citrobacter Farmeri (R Ampicillin, Cefazolin), Enterococcus Raffinosus (R Tetracycline), MRSA Imaging * CT Abd/Pelvis (08/18) possible abscess * RLE MRI (08/21) osteomyelitis of the talus, ca lcaneus, navicular bone Level * Peak (09/03) 27.7 mcg/mL; Trough (09/04) 12.8 mcg/mL; Calculated AUC 462 mcg* hr/mL, therefore tehrapeutic on Vancomycin 1gm I V q24h * Trough (09/06) * Random (09/07 @0510) 14.7 mcg/mL; s/p Vanc 1gm IV x1 09/05 @2009; Calculated half-life = 35.8hrs * Random (09/08 @1045) 15.8 mcg/mL; s/p Vanc 750 mg IV x1 04/16 @1102 * Given patient's renal func tion has been elevated, yet stable, Vancomycin 500mg IV q24h was initiated * Random (09/09 @1403) 15.4 mcg/mL; s/p Vanc 500 mg IV x1 09/08 @1403 Plan: * Considering risk for accumulation, will dose b y level for at least one more day; Give Vancomycin 500mg IV x1 * Draw random level 09/10 @1500; possibly transi tion to AUC-based dosing tomorrow based on level at 1526 RPT #:[id number] END OF REPORT 2022-09-09 10:42:00-00:00 [facility] Progress Note REPORT#:[id number] REPORT STATUS: Signed DATE:09/09/22 TIME: 1042 PATIENT: KARMA ROWLAND UNIT #: [id number] ROOM/BED: [place] [address] : 63 AGE: 56 SEX: M ATTEND: Fredy Vences MD ADM AUTHOR: Mj Vences MD * ALL edits or amendments must be made on the [employer] document * Subjective Chief complaint: Rehabilitation follow-up Patient doing well today Working with therapy Doing better + BM Eating 75-100% Denies MCBRIDE/N/V/D/CP 14 systems reviewed and neg. except that above. History of present illness: 56 yo HAM with long h/o DM, and HTN who was admitted for fever, flulike symptoms and altered mental status on 08/18. He was doing well until about 3 days prior to admission when he noted blister to have formed o n the dorsum of his foot. His foot started progressively getting more swollen and the blisters started enlarging and extending to his lateral f oot and ankle. He started feeling weak and nauseated. He was noted to have altered mentation and was brought to our ER. He was noted to be in DKA with Blood sugars grea ter than 600. He was seen by podiatry and surgery for BLE wounds and infectio n. He was treated in ICU for sepsis and DKA. He underwent incisional and excisional debridement of right foot and right ankle by podiatry. Patient also found to have prostate abscess underwent transrectal ultrasound aspiration of a bscess and transurethral resection of prostate and unroofing of abscess b y urology Dr. Bass. Endocrinology treated the DKA and blood sugars m uch improved. Patient's right foot was not salvageable and patient und erwent right BKA by Dr. LEROY on 08/28. Patient blood cultures showe d MRSA. Patient continued on antibiotics as per ID. MRI of the pelvis and foot completed. Patient r equired multiple PRBCs for anemia. Patient was found to have a possible small hematoma of the left calf on ultrasound. He complains of pain and swelling of the left ankle. Patient hemodynamically stable and plans are to be transferred to stepdown unit. He is on heparin subcu for VTE. Af ter surgery he is now being mobilized by PT and OT. He is wearing a [employer] orthotic for right knee /BKA protection. Prior to admission the patient was independent living in a single-story house with his spouse with a few steps up to front and back doo r. 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 is at bedside. Patient denies nausea, vomiting, fever, chills, chest pain, shortness of breath with diz ziness. He is requiring IV Dilaudid for pain control. Mental status back to baseline. Pt is progressing slowly with therapy d/t weakness and pain, self care deficit, decreased endurance and balance, and decreased functional mobility. Pt requiring acute inpt rehab for multidiscipli nary team of nursing, therapy, and physicians. Pt is willing and able to partici- kathleen in 3 hr/day inpt rehab to d/c home safely. Pt' s prior level of function was independent. Objective General VS: Vital Signs: Date Time Temp Pulse Resp B/P B/P Pulse O2 O2 F low FiO2 Mean Ox Delivery Rate 09/09 0709 98.2 88 17 140/71 93.7 94 Room air 09/09 0021 97.7 87 16 133/64 87.1 96 09/08 2004 97.9 91 15 150/73 98.9 96 09/08 1632 88 159/80 106.2 98 09/08 1345 98.2 85 12 163/85 96 Room air PATIENT WEIGHT: Weight (lb): 165 Weight (oz): 5.55 Weight (kg): 75.000 Medications: Active Meds + DC'd Last 24 Hrs Ferric Sodium Gluconate Complex (FERRLECIT) 125 MG DAILY IV Sodium Chloride (SODIUM CHLORIDE 0.9%) 100 ML Folic Acid (FOLIC ACID) 2 MG DAILY PO Multivitamins (TAB-A-MOHAN) 1 TAB DAILY PO Carvedilol (COREG) 12.5 MG C BK DIN PO Magnesium Sulfate (MAGNESIUM SULFATE 2GM/SWFI 50 ML) 50 ML ONCE ONE IV ( DC) Hydromorphone HCl (DILAUDID) 0.5 MG Q6H PRN PRN IV Vancomycin HCl (VANCOMYCIN HCL) 500 MG Q24H IV ( DC) Sodium Chloride (SODIUM CHLORIDE 0.9% 100 ML) 1 00 ML Carvedilol (COREG) 3.125 MG C BK DIN PO (DC) Insulin Glargine (Lantus/Semglee) 5 UNIT BEDTIME SUBQ Furosemide (LASIX 20MG INJ) 20 MG BLOOD-DOSE BET WEEN IV (CKD) Sodium Chloride (SODIUM CHLORIDE) 10 ML ASDIR IV Furosemide (LASIX) 20 MG DAILY PO Pantoprazole Sodium (PROTONIX) 40 MG Q12HR IV Polyethylene Glycol (MIRALAX) 17 GM DAILY PO Sennosides (Senna Lax 8.6 MG TABLET) 8.6 MG MADALYN Y PO Sodium Chloride (SODIUM CHLORIDE) 10 ML ASDIR NV N IV Amitriptyline HCl (ELAVIL) 25 MG BEDTIME PO Mupirocin (BACTROBAN 2% 22 GM OINTMENT) 1 APPLIC BID NASAL (DC) Zinc Oxide (ZINC OXIDE 30 GM OINTMENT) 1 APPLIC DAILY TOPICAL Sterile Water (WATER FOR IRRIGATION) DRESSING CH GELACIO ASDIR PRN IRR Insulin Human Lispro (HUMALOG) 0 AC HS SUBQ Dextrose/Water (DEXTROSE 10% IN WATER) 125 ML DIR PRN IV (CKD) Dextrose/Water (DEXTROSE 10% IN WATER) 250 ML DIR PRN IV (CKD) Glucagon (GLUCAGON) 1 MG ASDIR PRN IM Hydrocodone Bitart/Acetaminophen (NORCO 10/325) 1 TAB Q4H PRN PRN PO Lidocaine (LIDODERM) 1 PATCH DAILY TOPICAL Insulin Human Lispro (HUMALOG) 5 UNIT AC SUBQ Miscellaneous Information (VANCOMYCIN PHARMACY T O DOSE) 1 EACH ASDIR IV (CKD) Heparin Sodium (HEPARIN 5000 UNITS/ML) 5,000 UNI T Q8HR SUBQ Cefepime HCl (MAXIPIME) 1 GM Q6H IV Sodium Chloride (SODIUM CHLORIDE) 10 ML Acetaminophen (TYLENOL) 650 MG Q6H PRN PRN PO Bisacodyl (DULCOLAX) 10 MG DAILY PRN PRN RECTAL Docusate Sodium (COLACE) 100 MG Q12H PRN PRN PO Hydralazine HCl (APRESOLINE) 10 MG Q6H PRN PRN I V Ondansetron HCl (ZOFRAN) 4 MG Q6H PRN PRN IV Physical Exam General appearance: alert, awake, no acute distr ess Psych: alert, normal affect, oriented x 3 HEENT: anicteric, sclera clear Neck: supple, no JVD Cardiovascular: S1/S2, no murmur Respiratory: aerating well, clear bilaterally Abdomen: bowel sounds present, non-distended, so ft, non-tender Skin: no rash, R BKA HEALING. 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 3, CNII-XII intact Results Findings/Data: Laboratory Tests: 09/09 09/09 09/09 09/08 09/08 1049 0524 0500 1955 1828 Chemistry Sodium (134 - 147 mEq/L) 136 Potassium (3.4 - 5.0 mEq/L) 4.2 Chloride (100 - 108 mEq/L) 107 Carbon Dioxide (21 - 33 mEq/l) 22 Anion Gap (0 - 20) 11 BUN (7 - 18 mg/dL) 23 H Creatinine (0.6 - 1.3 mg/dL) 1.5 H Glomerular Filtr Rate (90 - 95) 53.6 L Glucose (70 - 110 mg/dL) 125 H POC Glucose (70 - 110 MG/DL) 90 128 H 106 Calcium (8.0 - 10.5 mg/dL) 8.2 Phosphorus (2.5 - 4.9 MG/DL) 4.0 Magnesium (1.80 - 2.40 mg/dL) 1.89 Iron (35 - 150 mcg/dL) 10 L TIBC (260 - 445 mcg/dL) 138 L % Saturation (14 - 34 %) 7.2 L Unsat Iron Binding (mcg/dL) 128 Ferritin (23.9 - 336.2 ng/mL) 700.5 H Lactate Dehydrogenase (87 - 241 193 IUnits/L) Hematology WBC (4.5 - 11.0 x10 3/uL) 9.2 RBC (4.00 - 5.60 x10 6/uL) 3.01 L Hgb (12.5 - 16.9 g/dL) 8.5 L Hct (37.5 - 50.7 %) 25.9 L MCV (81.0 - 99.0 fL) 86.0 MCH (27.0 - 33.0 pg) 28.2 MCHC (33.0 - 37.0 g/dL) 32.8 L RDW (11.5 - 14.5 %) 13.8 Plt Count (150 - 400 x10 3/uL) 263 MPV (7.0 - 9.0 fL) 9.7 H Neut % (Auto) (56.0 - 77.0 %) 69.1 Lymph % (Auto) (14.0 - 32.0 %) 16.1 Boundary % (Auto) (4.8 - 9.0 %) 9.2 H Eos % (Auto) (0.3 - 3.7 %) 4.7 H Baso % (Auto) (0.0 - 2.0 %) 0.4 Neut # (Auto) (2.0 - 7.6 x10 3/uL) 6.38 Lymph # (Auto) (1.0 - 3.8 x10 3/uL) 1.49 Boundary # (Auto) (0.1 - 0.8 x10 3/uL) 0.85 H Eos # (Auto) (0.0 - 0.2 x10 3/uL) 0.43 H Baso # (Auto) (0.0 - 0.2 x10 3/uL) 0.04 Abs Immat Gran (auto) (0.00 - 0.03 0.05 H x10 3/uL) Add Manual Diff NO Immature Gran % (0.0 - 2.0 %) 0.5 Nucleated RBC % (0 - 0 %) 0.0 Nucleated RBCs # (Man) (0.0 - 0.1 0.00 x10 3/uL) Retic Count (auto) (0.3 - 2.3 %) 1.3 09/08 1611 Chemistry POC Glucose (70 - 110 MG/DL) 120 H Diagnosis, Assessment Plan Problem List/A P: 1. Gangrene of right foot 2. 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 MRSA bacteremia 4. Cellulitis of foot, right 5. DKA (diabetic ketoacidosis) 6. Hyperglycemia 7. ERIKA (acute kidney injury) 8. Postoperative pain 9. Acute anemia 10. Prostate abscess 11. 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 Leroy Significant impairment in self-care, ADLs and fu nctional mobility Impaired mobility and gait Acute postoperative pain right BKA Diabetic polyneuropathy DKA, DM 2, poorly controlled, A1c greater than 1 4 PAD MRSA bacteremia/sepsis-treated on acute ERIKA Severe hyponatremia-resolved HTN Acute on chronic anemia requiring multiple trans fusions, possible GI bleed Left calf hematoma Edema and clinical arthritis left ankle Early decubitus to left heel/DTI dorsal left mid foot Prostatic abscess 08/26: S/p transrectal ultrasound aspiration of ab scess and transurethral resection of prostate and unroofing of abscess Echo: EF 55-59%, grade 1 diastolic dysfunction 09/02: JIMENA negative for vegetation MRSA OF NARES 09/08:s/p EGD and colonoscopy. EGD showed mild ga stritis. Colonoscopy showed rectal polyp that was resected by snare. Plan: -PLOF: Independent with transfers and gait -Amputee rehab program -Continue PT and OT -15/12 rehabilitation nursing care. -Case management for safe discharge planning. -Decubitus prevention -Early decubitus to left heel/DTI dorsal left mi dfoot-zinc oxide to the foot, foam, offloading, podiatry managing -DVT prophylaxis-subcutaneous heparin -Strict fall and safety precautions -Work on bed mobility, transfer training, ADLs, pre-gait and gait exercises -Increase endurance and strength -Monitor pain with therapies -OOB to chair -Monitor p.o. intake and nut rition, albumin 1.3, prealbumin less than 5, dietary consultation, protein supplements to promote hea ling -Continue antibiotics per ID -on cefepime and vancomycin until 10/11 for treatment of prostatic abscess -Tight glycemia control- endocrine on board, ins ulin adjustments -Endocrinology, ID, podiatry, cardiology, IM con sulted -Pain management adjusting pain medications -Anemia, patient required multiple units of PRBC s on acute, FOBT positive -IV Protonix-consult GI-seri al H H-no evidence of gross bleeding-discussed with Dr. Trinidad -Constipation-abdominal lnixsuha-TMR-cbhnxv-CW S enokot and MiraLAX, DSP -Right FNE-bdjkyzr-gcowusnf resolved, dr martinez changed ufwiv-sunlgzw-yyjamwdd NESTOR-TECH -MRSA OF NARES on Bactroban protocol -LLE edema-venous Doppler wi th complex heterogeneous hypoechoic fluid collection in the left calf region mitzi uring 8.4, 2.8, 2.5 cm suggestive of hematoma. Hold Lasix x3 days. Oralia wrap calf -Generalized edema-some shor tness of breath and abdominal distention-cardiology gave a dose of IV Lasix-monitor urine output, da jaz weights -Chest x-ray with minimal basilar pulmonary opac ities -Anemia-hemoglobin 8.5, transfused 2 units of NV BC on 09/05 -09/08: s/p EGD and colonoscopy. EGD showed mild gastritis. Colonoscopy showed rectal polyp that was resected by snare. Anemia likely secondary to chronic kidney disease. Consult renal. -Chemistries good, creatinine 1.5, magnesium 1.8 9 -Advance therapies as tolerated-discusse d treatment plan with patient and -Patient continues to perform well with therapies. Patient is highly motivated but requires rest breaks due to becoming easily fatigued. Patient working on sliding board and stand pivot transfers -Team conference Progress: PATIENT IS PROGRESSING WITH PT, REQUI RES MIN A FOR STAND PIVOT TRANSFERS, WC MOB IMPROVING AND LIMITED B Y DEC ACTIVITY TOLERANCE AND WEAKNESS PM R Please see team note. Plan and goals discussed with the patient. I agree with the teams finding FAYOS- [09/19] DC-Home with -Home health DME-bedside commode, sliding board, wheelchair, Total time 33 minutes greater than 50% of the ti me spent examining patient, discussing with patient abou t team conference, anemia, EGD and colonoscopy, hold anticoagulants for a few days, amputee rehab shruthi n of care, goals, therapies, progress, labs, medications. EMR and MAR is revi ewed. All questions answered Orders: Procedure Date/time Status OT EXERCISE 15MIN 09/09 UNK Complete Consultants: cardiology, endocrinology, hospital ist, infectious disease, podiatry Rehab attestation: Face to face exam completed. Treatment plan disc ussed with patient. Meets continued stay criteria. Agree with interdiscipl inary treatment plan. at 1526 RPT #:[id number] END OF REPORT 2022-09-09 09:56:00-00:00 [facility]) Cardiology Progress Note REPORT#:[id number] REPORT STATUS: Signed DATE:09/09/22 TIME: 09 PATIENT: KARMA ROWLAND UNIT #: [id number] ROOM/BED: [place] [address] : 63 AGE: 56 SEX: M ATTEND: Fredy Vences MD ADM AUTHOR: Rohit Benitez CLAY MILLER * ALL edits or amendments must be made on the [employer]/computer document * Rohit Benitez 09/09/22 0956: Subjective Chief complaint: weakness Free Text Subj Notes Free Text Subj Notes: Patient seen and evaluated. Chart reviewed. No n ew symptoms, feeling well. Denies chest pain, palpitations, or shortness of breath. Objective General VS/I O: 24 hour I O ending at 0700: 09/09 0700 09/08 1900 Intake Total 250.00 Output Total 850 Balance -850 250.00 Intake, IV 250.00 Number 1 Bowel Movements Number 0 Incontinent Voids Number Voids 0 Output, Urine 850 Vital Signs: Date Time Temp Pulse Resp B/P B/P Pulse O2 O2 F low FiO2 Mean Ox Delivery Rate 09/09 0709 98.2 88 17 140/71 93.7 94 Room air 09/09 0021 97.7 87 16 133/64 87.1 96 09/09 2003 97.9 91 15 150/73 98.9 96 09/08 1632 88 159/80 106.2 98 09/08 1345 98.2 85 12 163/85 96 Room air 09/08 1340 85 14 157/86 98 09/08 1335 87 14 155/84 98 09/08 1330 80 16 152/80 99 09/08 1325 82 14 146/75 99 Room air 09/08 1322 Nasal 2 cannula 09/08 1322 98.0 80 10 131/71 95 Nasal 2 cannula 09/08 1225 90 12 170/85 99 Room air PATIENT WEIGHT: Weight (lb): 165 Weight (oz): 5.55 Weight (kg): 75.000 Medications: Active Meds + DC'd Last 24 Hrs Ferric Sodium Gluconate Complex (FERRLECIT) 125 MG DAILY IV Sodium Chloride (SODIUM CHLORIDE 0.9%) 100 ML Folic Acid (FOLIC ACID) 2 MG DAILY PO Multivitamins (TAB-A-MOHAN) 1 TAB DAILY PO Carvedilol (COREG) 12.5 MG C BK DIN PO Magnesium Sulfate (MAGNESIUM SULFATE 2GM/SWFI 50 ML) 50 ML ONCE ONE IV ( DC) Hydromorphone HCl (DILAUDID) 0.5 MG Q6H PRN PRN IV Vancomycin HCl (VANCOMYCIN HCL) 500 MG Q24H IV Sodium Chloride (SODIUM CHLORIDE 0.9% 100 ML) 1 00 ML Propofol (DIPRIVAN 200MG/20ML INJECTION) 20 ML . STK-MED ONE IV (DC) Fentanyl Citrate (SUBLIMAZE) 0 .STK-MED ONE .ROU TE (DC) Propofol (DIPRIVAN 200MG/20ML INJECTION) 20 ML . STK-MED ONE IV (DC) Lidocaine HCl (XYLOCAINE) 0 .STK-MED ONE .ROUTE (DC) Fentanyl Citrate (SUBLIMAZE) 100 MCG PACU Q10MIN PRN PRN IV (DC) Fentanyl Citrate (SUBLIMAZE) 50 MCG PACU Q10MIN PRN PRN IV (DC) Hydralazine HCl (APRESOLINE) 2 MG PACU Q10MIN NV N PRN IV (DC) Insulin Human Lispro (HUMALOG) 0 PACU ONCE PRN S UBQ (DC) Labetalol HCl (LABETALOL HCL) 5 MG PACU Q10MIN P RN PRN IV (DC) Ondansetron HCl (ZOFRAN) 4 MG PACU ONCE PRN IV ( DC) Carvedilol (COREG) 3.125 MG C BK DIN PO (DC) Insulin Glargine (Lantus/Semglee) 5 UNIT BEDTIME SUBQ Furosemide (LASIX 20MG INJ) 20 MG BLOOD-DOSE BET WEEN IV (CKD) Sodium Chloride (SODIUM CHLORIDE) 10 ML ASDIR IV Furosemide (LASIX) 20 MG DAILY PO Pantoprazole Sodium (PROTONIX) 40 MG Q12HR IV Polyethylene Glycol (MIRALAX) 17 GM DAILY PO Sennosides (Senna Lax 8.6 MG TABLET) 8.6 MG MADALYN Y PO Sodium Chloride (SODIUM CHLORIDE) 10 ML ASDIR NV N IV Amitriptyline HCl (ELAVIL) 25 MG BEDTIME PO Mupirocin (BACTROBAN 2% 22 GM OINTMENT) 1 APPLIC BID NASAL (DC) Zinc Oxide (ZINC OXIDE 30 GM OINTMENT) 1 APPLIC DAILY TOPICAL Sterile Water (WATER FOR IRRIGATION) DRESSING CH GELACIO ASDIR PRN IRR Insulin Human Lispro (HUMALOG) 0 AC HS SUBQ Dextrose/Water (DEXTROSE 10% IN WATER) 125 ML DIR PRN IV (CKD) Dextrose/Water (DEXTROSE 10% IN WATER) 250 ML DIR PRN IV (CKD) Glucagon (GLUCAGON) 1 MG ASDIR PRN IM Hydrocodone Bitart/Acetaminophen (NORCO 10/325) 1 TAB Q4H PRN PRN PO Hydromorphone HCl (DILAUDID) 1 MG Q6H PRN PRN IV (DC) Lidocaine (LIDODERM) 1 PATCH DAILY TOPICAL Insulin Human Lispro (HUMALOG) 5 UNIT AC SUBQ Miscellaneous Information (VANCOMYCIN PHARMACY T O DOSE) 1 EACH ASDIR IV (CKD) Heparin Sodium (HEPARIN 5000 UNITS/ML) 5,000 UNI T Q8HR SUBQ (r) Cefepime HCl (MAXIPIME) 1 GM Q6H IV Sodium Chloride (SODIUM CHLORIDE) 10 ML Acetaminophen (TYLENOL) 650 MG Q6H PRN PRN PO Bisacodyl (DULCOLAX) 10 MG DAILY PRN PRN RECTAL Docusate Sodium (COLACE) 100 MG Q12H PRN PRN PO Hydralazine HCl (APRESOLINE) 10 MG Q6H PRN PRN I V Ondansetron HCl (ZOFRAN) 4 MG Q6H PRN PRN IV Physical Exam General appearance: alert, awake, oriented Neck: no bruit/NL carotids, no JVD Cardiovascular: CV assessment: regular rate and rhythm, no ecto py, no gallop Respiratory: clear to auscultation, no distress Abdomen: soft, non-tender Lower extremity: LE assessment: edema, normal temperature 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 X 3 Considered stroke alert: no Wound/incision: Location: right bka Psychiatry: normal affect, normal judgment/insig ht, normal mood Results Findings/Data: Laboratory Tests 09/09 09/09 09/08 09/08 0524 0500 1955 1828 Chemistry Sodium (134 - 147 mEq/L) 136 Potassium (3.4 - 5.0 mEq/L) 4.2 Chloride (100 - 108 mEq/L) 107 Carbon Dioxide (21 - 33 mEq/l) 22 Anion Gap (0 - 20) 11 BUN (7 - 18 mg/dL) 23 H Creatinine (0.6 - 1.3 mg/dL) 1.5 H Glomerular Filtr Rate (90 - 95) 53.6 L Glucose (70 - 110 mg/dL) 125 H POC Glucose (70 - 110 MG/DL) 128 H 106 Calcium (8.0 - 10.5 mg/dL) 8.2 Phosphorus (2.5 - 4.9 MG/DL) 4.0 Magnesium (1.80 - 2.40 mg/dL) 1.89 Iron (35 - 150 mcg/dL) 10 L TIBC (260 - 445 mcg/dL) 138 L % Saturation (14 - 34 %) 7.2 L Unsat Iron Binding (mcg/dL) 128 Ferritin (23.9 - 336.2 ng/mL) 700.5 H Lactate Dehydrogenase (87 - 241 IUnits/L) 193 09/08 09/08 09/08 1611 1318 1033 Chemistry POC Glucose (70 - 110 MG/DL) 120 H 101 99 Laboratory Tests 09/09 09/08 0500 1828 Hematology WBC (4.5 - 11.0 x10 3/uL) 9.2 RBC (4.00 - 5.60 x10 6/uL) 3.01 L Hgb (12.5 - 16.9 g/dL) 8.5 L Hct (37.5 - 50.7 %) 25.9 L MCV (81.0 - 99.0 fL) 86.0 MCH (27.0 - 33.0 pg) 28.2 MCHC (33.0 - 37.0 g/dL) 32.8 L RDW (11.5 - 14.5 %) 13.8 Plt Count (150 - 400 x10 3/uL) 263 MPV (7.0 - 9.0 fL) 9.7 H Neut % (Auto) (56.0 - 77.0 %) 69.1 Lymph % (Auto) (14.0 - 32.0 %) 16.1 Boundary % (Auto) (4.8 - 9.0 %) 9.2 H Eos % (Auto) (0.3 - 3.7 %) 4.7 H Baso % (Auto) (0.0 - 2.0 %) 0.4 Neut # (Auto) (2.0 - 7.6 x10 3/uL) 6.38 Lymph # (Auto) (1.0 - 3.8 x10 3/uL) 1.49 Boundary # (Auto) (0.1 - 0.8 x10 3/uL) 0.85 H Eos # (Auto) (0.0 - 0.2 x10 3/uL) 0.43 H Baso # (Auto) (0.0 - 0.2 x10 3/uL) 0.04 Abs Immat Gran (auto) (0.00 - 0.03 x10 3/uL) 0. 05 H Add Manual Diff NO Immature Gran % (0.0 - 2.0 %) 0.5 Nucleated RBC % (0 - 0 %) 0.0 Nucleated RBCs # (Man) (0.0 - 0.1 x10 3/uL) 0.0 0 Retic Count (auto) (0.3 - 2.3 %) 1.3 Laboratory Tests 09/08 1045 Toxicology Random Vancomycin (mcg/mL) 15.8 Laboratory Tests 09/09 0500 Chemistry Magnesium (1.80 - 2.40 mg/dL) 1.89 Diagnosis, Assessment Plan Consultants: cardiology, endocrinology, hospital ist, infectious disease, podiatry Free Text DxA P Notes Free Text DxA P Notes: Impression: 1. Debility 2. Infected right foot status post BKA 3. Bacteremia 4. Diabetes 5. Hypertension 6. Anemia 07/2022: Echocardiogram with normal LVEF, grade 1 diastolic dysfunction, mildly dilated LA, and no significant valvular abnormal ities Recommendation: Patient initially presented with DKA and sepsis. Diagnosed with right foot infection, underwent I D, now status post BKA. P athailey had persistent bacteremia with MRSA, underwent JIMENA with negativ e findings of endocarditis. Patient now transferred to [facility] for physical therapy. Known cardiac history of hypertension and hyperlipide renetta. Vital signs stable. Echocardiogram with normal LVEF, grade 1 diastolic dysfunction, mildly dila carlos LA, and no significant valvular abnormalities. Continue to monitor bloo d pressure trend. Continue wound care and IV antibiotic therapy. Continue P T/OT. Supportive care. 09/04: Patient complaining of shortness of breath, abdominal distention and lower extremity edema. Renal function and electrolytes stable. Will give one-time dose of IV Lasix 40 mg. Blood pressure stable. P ending abdominal x-ray. Monitor intake and output. Check BMP in the morn ing. Supportive care. Plan of care discussed with patient, RN and Dr. Parham. 09/05: Patient responded well to IV Lasix , good urine output and improvement in shortness of breath. Chest x-ray ordered . Currently on Lasix 20 mg p.o. daily. Continue monitor renal function and electrolyte s. Pending lower extremity Doppler for lower extremity edema. Continue PT/O T. Supportive care. Plan of care discussed with patient, RN and Dr. Parham. 09/08: Blood pressure has been elevated, started on Coreg 3.125 mg twice daily. Continue monitor blood pressure trend and adjust medication as needed. Still having left lower extremity edema, venous Dopple r negative for DVT. continue gentle diuresis with Lasix 20 mg p.o. daily. Rec ommend Oralia wrap. Patient remains anemic, plan for EGD/colonoscopy today. Supportive care. Plan of care discussed with patient, family, RN and Dr. Parham . 09/09: Patient doing well status post EGD /colonoscopy, negative findings for GI bleed. Blood pressure improving, increased on Co reg to 12.5 mg twice daily. Elevated creatinine noted, nephrology following. No new cardiac complaint. Continue wound care. Continue PT/OT. Supportive care. Plan of care discussed with patient, RN and Dr. Parham. Gianni Parham 04/18/23 2223: Diagnosis, Assessment Plan Additional comments: Patient was seen and examined at bedside , agree with above assessment and plan as documented by nurse practitioner with modific ations. Patient continued to have left lower extremity edema and bilateral pu lmonary rales. Continue with diuresis. Monitor I's and O's. We will follow. Electronically Signed by Rohit Benitez CLAY MILLER on 0 09/09/22 at 1704 at 2224 RPT #:[id number] END OF REPORT 2022-09-09 09:38:00-00:00 [facility] Hospitalist Progress Note REPORT#:[id number] REPORT STATUS: Signed DATE:09/09/22 TIME: 937 PATIENT: KARMA ROWLAND UNIT #: [id number] ROOM/BED: [place] [address] : 63 AGE: 56 SEX: M ATTEND: Fredy Vences MD ADM AUTHOR: Wilbert Ramires MD * ALL edits or amendments must be made on the [employer]/computer document * Subjective Chief complaint: admitted to rehab. participating with therapy Review of Systems All systems rev neg: except as noted Objective General VS/I O: Vital Signs: Date Time Temp Pulse Resp B/P B/P Pulse O2 O2 F low FiO2 Mean Ox Delivery Rate 09/09 0709 98.2 88 17 140/71 93.7 94 Room air 09/09 0021 97.7 87 16 133/64 87.1 96 09/08 2004 97.9 91 15 150/73 98.9 96 09/08 1632 88 159/80 106.2 98 09/08 1345 98.2 85 12 163/85 96 Room air 09/08 1340 85 14 157/86 98 09/08 1335 87 14 155/84 98 09/08 1330 80 16 152/80 99 09/08 1325 82 14 146/75 99 Room air 09/08 1322 Nasal 2 cannula 09/08 1322 98.0 80 10 131/71 95 Nasal 2 cannula 09/08 1225 90 12 170/85 99 Room air 24 hour I O ending at 0700: 09/09 0700 09/08 1900 Intake Total 250.00 Output Total 850 Balance -850 250.00 Intake, IV 250.00 Number 1 Bowel Movements Number 0 Incontinent Voids Number Voids 0 Output, Urine 850 PATIENT WEIGHT: Weight (lb): 165 Weight (oz): 5.55 Weight (kg): 75.000 Medications: Active Meds + DC'd Last 24 Hrs Ferric Sodium Gluconate Complex (FERRLECIT) 125 MG DAILY IV Sodium Chloride (SODIUM CHLORIDE 0.9%) 100 ML Folic Acid (FOLIC ACID) 2 MG DAILY PO Multivitamins (TAB-A-MOHAN) 1 TAB DAILY PO Carvedilol (COREG) 12.5 MG C BK DIN PO Magnesium Sulfate (MAGNESIUM SULFATE 2GM/SWFI 50 ML) 50 ML ONCE ONE IV ( DC) Hydromorphone HCl (DILAUDID) 0.5 MG Q6H PRN PRN IV Vancomycin HCl (VANCOMYCIN HCL) 500 MG Q24H IV Sodium Chloride (SODIUM CHLORIDE 0.9% 100 ML) 1 00 ML Propofol (DIPRIVAN 200MG/20ML INJECTION) 20 ML . STK-MED ONE IV (DC) Fentanyl Citrate (SUBLIMAZE) 0 .STK-MED ONE .ROU TE (DC) Propofol (DIPRIVAN 200MG/20ML INJECTION) 20 ML . STK-MED ONE IV (DC) Lidocaine HCl (XYLOCAINE) 0 .STK-MED ONE .ROUTE (DC) Fentanyl Citrate (SUBLIMAZE) 100 MCG PACU Q10MIN PRN PRN IV (DC) Fentanyl Citrate (SUBLIMAZE) 50 MCG PACU Q10MIN PRN PRN IV (DC) Hydralazine HCl (APRESOLINE) 2 MG PACU Q10MIN NV N PRN IV (DC) Insulin Human Lispro (HUMALOG) 0 PACU ONCE PRN S UBQ (DC) Labetalol HCl (LABETALOL HCL) 5 MG PACU Q10MIN P RN PRN IV (DC) Ondansetron HCl (ZOFRAN) 4 MG PACU ONCE PRN IV ( DC) Carvedilol (COREG) 3.125 MG C BK DIN PO (DC) Insulin Glargine (Lantus/Semglee) 5 UNIT BEDTIME SUBQ Furosemide (LASIX 20MG INJ) 20 MG BLOOD-DOSE BET WEEN IV (CKD) Sodium Chloride (SODIUM CHLORIDE) 10 ML ASDIR IV Furosemide (LASIX) 20 MG DAILY PO Pantoprazole Sodium (PROTONIX) 40 MG Q12HR IV Polyethylene Glycol (MIRALAX) 17 GM DAILY PO Sennosides (Senna Lax 8.6 MG TABLET) 8.6 MG MADALYN Y PO Sodium Chloride (SODIUM CHLORIDE) 10 ML ASDIR NV N IV Amitriptyline HCl (ELAVIL) 25 MG BEDTIME PO Mupirocin (BACTROBAN 2% 22 GM OINTMENT) 1 APPLIC BID NASAL (DC) Zinc Oxide (ZINC OXIDE 30 GM OINTMENT) 1 APPLIC DAILY TOPICAL Sterile Water (WATER FOR IRRIGATION) DRESSING CH GELACIO ASDIR PRN IRR Insulin Human Lispro (HUMALOG) 0 AC HS SUBQ Dextrose/Water (DEXTROSE 10% IN WATER) 125 ML DIR PRN IV (CKD) Dextrose/Water (DEXTROSE 10% IN WATER) 250 ML DIR PRN IV (CKD) Glucagon (GLUCAGON) 1 MG ASDIR PRN IM Hydrocodone Bitart/Acetaminophen (NORCO 10/325) 1 TAB Q4H PRN PRN PO Hydromorphone HCl (DILAUDID) 1 MG Q6H PRN PRN IV (DC) Lidocaine (LIDODERM) 1 PATCH DAILY TOPICAL Insulin Human Lispro (HUMALOG) 5 UNIT AC SUBQ Miscellaneous Information (VANCOMYCIN PHARMACY T O DOSE) 1 EACH ASDIR IV (CKD) Heparin Sodium (HEPARIN 5000 UNITS/ML) 5,000 UNI T Q8HR SUBQ (r) Cefepime HCl (MAXIPIME) 1 GM Q6H IV Sodium Chloride (SODIUM CHLORIDE) 10 ML Acetaminophen (TYLENOL) 650 MG Q6H PRN PRN PO Bisacodyl (DULCOLAX) 10 MG DAILY PRN PRN RECTAL Docusate Sodium (COLACE) 100 MG Q12H PRN PRN PO Hydralazine HCl (APRESOLINE) 10 MG Q6H PRN PRN I V Ondansetron HCl (ZOFRAN) 4 MG Q6H PRN PRN IV Physical Exam General appearance: alert, awake, oriented Head/Eyes: atraumatic, clear cornea Neck: full range of motion, non-tender Cardiovascular: normal capillary refill, normal heart sounds, regular rate rhythm Respiratory: aerating well, clear to auscultatio n Abdomen: non-tender, normal bowel sounds Genitourinary: no flank pain Extremities: moves all, normal capillary refill Musculoskeletal: normal inspection, painless ran ge of motion 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 X 3, 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 Considered stroke alert: no Skin: dry, intact Psychiatry: normal affect, normal judgment/insig ht Results Findings/Data: Laboratory Tests 09/09 09/09 09/08 09/08 09/08 0524 0500 1955 1828 1611 Chemistry Sodium (134 - 147 mEq/L) 136 Potassium (3.4 - 5.0 mEq/L) 4.2 Chloride (100 - 108 mEq/L) 107 Carbon Dioxide (21 - 33 mEq/l) 22 Anion Gap (0 - 20) 11 BUN (7 - 18 mg/dL) 23 H Creatinine (0.6 - 1.3 mg/dL) 1.5 H Glomerular Filtr Rate (90 - 95) 53.6 L Glucose (70 - 110 mg/dL) 125 H POC Glucose (70 - 110 MG/DL) 128 H 106 120 H Calcium (8.0 - 10.5 mg/dL) 8.2 Phosphorus (2.5 - 4.9 MG/DL) 4.0 Magnesium (1.80 - 2.40 mg/dL) 1.89 Iron (35 - 150 mcg/dL) 10 L TIBC (260 - 445 mcg/dL) 138 L % Saturation (14 - 34 %) 7.2 L Unsat Iron Binding (mcg/dL) 128 Ferritin (23.9 - 336.2 ng/mL) 700.5 H Lactate Dehydrogenase (87 - 241 193 IUnits/L) 09/08 09/08 1318 1033 Chemistry POC Glucose (70 - 110 MG/DL) 101 99 Laboratory Tests 09/09 09/08 0500 1828 Hematology WBC (4.5 - 11.0 x10 3/uL) 9.2 RBC (4.00 - 5.60 x10 6/uL) 3.01 L Hgb (12.5 - 16.9 g/dL) 8.5 L Hct (37.5 - 50.7 %) 25.9 L MCV (81.0 - 99.0 fL) 86.0 MCH (27.0 - 33.0 pg) 28.2 MCHC (33.0 - 37.0 g/dL) 32.8 L RDW (11.5 - 14.5 %) 13.8 Plt Count (150 - 400 x10 3/uL) 263 MPV (7.0 - 9.0 fL) 9.7 H Neut % (Auto) (56.0 - 77.0 %) 69.1 Lymph % (Auto) (14.0 - 32.0 %) 16.1 Boundary % (Auto) (4.8 - 9.0 %) 9.2 H Eos % (Auto) (0.3 - 3.7 %) 4.7 H Baso % (Auto) (0.0 - 2.0 %) 0.4 Neut # (Auto) (2.0 - 7.6 x10 3/uL) 6.38 Lymph # (Auto) (1.0 - 3.8 x10 3/uL) 1.49 Boundary # (Auto) (0.1 - 0.8 x10 3/uL) 0.85 H Eos # (Auto) (0.0 - 0.2 x10 3/uL) 0.43 H Baso # (Auto) (0.0 - 0.2 x10 3/uL) 0.04 Abs Immat Gran (auto) (0.00 - 0.03 x10 3/uL) 0. 05 H Add Manual Diff NO Immature Gran % (0.0 - 2.0 %) 0.5 Nucleated RBC % (0 - 0 %) 0.0 Nucleated RBCs # (Man) (0.0 - 0.1 x10 3/uL) 0.0 0 Retic Count (auto) (0.3 - 2.3 %) 1.3 Laboratory Tests 09/08 1045 Toxicology Random Vancomycin (mcg/mL) 15.8 Diagnosis, Assessment Plan Consultants: cardiology, endocrinology, hospital ist, infectious disease, podiatry Free Text DxA P Notes Free text DxA P notes: Gangrene of right foot s/p Below- knee amputatio n Prostate abscess MRSA bacteremia Hx of Diabetes, Diabetic neuropathy HTN PLANS: Continue with ABx as dierected- currently on Dap tomycin and Cefepime Continue with PT/OT per primary Fall precautions Nutritional support pain control fall precautions bowel regimen Wound care as directed Hepain PPX Continue with supportive / care follow hgb closely and transfuse as needed blood sugars dipping down - endo following BP improving. continue current BP meds and adjus t as needed labs noted. watch Hgb IV iron Electronically Signed by Wilbert Ramires MD on at 1130 RPT #:[id number] END OF REPORT 2022-09-09 05:32:00-00:00 [facility] ([facility]) Pain Management Progress Note REPORT#:[id number] REPORT STATUS: Signed DATE:09/09/22 TIME: 05 PATIENT: KARMA ROWLAND UNIT #: [id number] ROOM/BED: [place] [address] : 61 AGE: 56 SEX: M ATTEND: Fredy Vences MD ADM AUTHOR: Charlie Quiroga CLAY MILLER * ALL edits or amendments must be made on the [employer]/computer document * Charlie Quiroga 09/09/22 0532: Subjective Chief complaint: Patient seen and examined. Chart/MAR reviewed. Patient is doing well so far today. Pain tolerab le last night. Medications effective when taken. Patient being seen for Acute postoperative pain, right foot and ankle gangrene, requiring BKA, Constipation Patient is still requiring medications to help w ith managing current problems. Patient is requiring IV narcotics to help manage breakthrough pain No fever/chills, chest pain, orthopnea, nausea/v omiting, pruritus, or hallucinations. 14 point ROS undertaken unremarkable except as n oted Objective General VS/I O: Vital Signs Date Temp Pulse Resp B/P B/P Mean Pulse Ox FiO2 09/08-09/09 97.7-98.2 80-92 10-20 131-170/64-86 87.1-106.2 95-99 Last Documented: Result Date Time Pulse Ox 96 09/09 0021 B/P 133/64 09/09 0021 B/P Mean 87.1 09/09 0021 Temp 97.7 09/09 0021 Pulse 87 09/09 0021 Resp 16 09/09 0021 O2 Delivery Room air 09/08 1345 O2 Flow Rate 2 09/08 1322 24 hour I O ending at 0700: 09/09 0700 09/08 1900 Intake Total 250.00 Output Total 850 Balance -850 250.00 Intake, IV 250.00 Number 1 Bowel Movements Number 0 Incontinent Voids Number Voids 0 Output, Urine 850 PATIENT WEIGHT: Weight (lb): 165 Weight (oz): 5.55 Weight (kg): 75.000 Medications: Active Meds + DC'd Last 24 Hrs Carvedilol (COREG) 12.5 MG C BK DIN PO Magnesium Sulfate (MAGNESIUM SULFATE 2GM/SWFI 50 ML) 50 ML ONCE ONE IV ( DC) Hydromorphone HCl (DILAUDID) 0.5 MG Q6H PRN PRN IV Vancomycin HCl (VANCOMYCIN HCL) 500 MG Q24H IV Sodium Chloride (SODIUM CHLORIDE 0.9% 100 ML) 1 00 ML Propofol (DIPRIVAN 200MG/20ML INJECTION) 20 ML . STK-MED ONE IV (DC) Fentanyl Citrate (SUBLIMAZE) 0 .STK-MED ONE .ROU TE (DC) Propofol (DIPRIVAN 200MG/20ML INJECTION) 20 ML . STK-MED ONE IV (DC) Lidocaine HCl (XYLOCAINE) 0 .STK-MED ONE .ROUTE (DC) Fentanyl Citrate (SUBLIMAZE) 100 MCG PACU Q10MIN PRN PRN IV (DC) Fentanyl Citrate (SUBLIMAZE) 50 MCG PACU Q10MIN PRN PRN IV (DC) Hydralazine HCl (APRESOLINE) 2 MG PACU Q10MIN NV N PRN IV (DC) Insulin Human Lispro (HUMALOG) 0 PACU ONCE PRN S UBQ (DC) Labetalol HCl (LABETALOL HCL) 5 MG PACU Q10MIN P RN PRN IV (DC) Ondansetron HCl (ZOFRAN) 4 MG PACU ONCE PRN IV ( DC) Carvedilol (COREG) 3.125 MG C BK DIN PO (DC) Polyethylene Glycol/Electrolytes (GOLYTELY) 2,00 0 ML ONCE ONE PO (DC) Insulin Glargine (Lantus/Semglee) 5 UNIT BEDTIME SUBQ Furosemide (LASIX 20MG INJ) 20 MG BLOOD-DOSE BET WEEN IV (CKD) Sodium Chloride (SODIUM CHLORIDE) 10 ML ASDIR IV Furosemide (LASIX) 20 MG DAILY PO Pantoprazole Sodium (PROTONIX) 40 MG Q12HR IV Polyethylene Glycol (MIRALAX) 17 GM DAILY PO Sennosides (Senna Lax 8.6 MG TABLET) 8.6 MG MADALYN Y PO Sodium Chloride (SODIUM CHLORIDE) 10 ML ASDIR NV N IV Amitriptyline HCl (ELAVIL) 25 MG BEDTIME PO Mupirocin (BACTROBAN 2% 22 GM OINTMENT) 1 APPLIC BID NASAL Zinc Oxide (ZINC OXIDE 30 GM OINTMENT) 1 APPLIC DAILY TOPICAL Sterile Water (WATER FOR IRRIGATION) DRESSING CH GELACIO ASDIR PRN IRR Insulin Human Lispro (HUMALOG) 0 AC HS SUBQ Dextrose/Water (DEXTROSE 10% IN WATER) 125 ML DIR PRN IV (CKD) Dextrose/Water (DEXTROSE 10% IN WATER) 250 ML DIR PRN IV (CKD) Glucagon (GLUCAGON) 1 MG ASDIR PRN IM Hydrocodone Bitart/Acetaminophen (NORCO 10/325) 1 TAB Q4H PRN PRN PO Hydromorphone HCl (DILAUDID) 1 MG Q6H PRN PRN IV (DC) Lidocaine (LIDODERM) 1 PATCH DAILY TOPICAL Insulin Human Lispro (HUMALOG) 5 UNIT AC SUBQ Miscellaneous Information (VANCOMYCIN PHARMACY T O DOSE) 1 EACH ASDIR IV (CKD) Heparin Sodium (HEPARIN 5000 UNITS/ML) 5,000 UNI T Q8HR SUBQ (DA) Cefepime HCl (MAXIPIME) 1 GM Q6H IV Sodium Chloride (SODIUM CHLORIDE) 10 ML Acetaminophen (TYLENOL) 650 MG Q6H PRN PRN PO Bisacodyl (DULCOLAX) 10 MG DAILY PRN PRN RECTAL Docusate Sodium (COLACE) 100 MG Q12H PRN PRN PO Hydralazine HCl (APRESOLINE) 10 MG Q6H PRN PRN I V Ondansetron HCl (ZOFRAN) 4 MG Q6H PRN PRN IV Physical Exam General appearance: alert, awake, oriented, no a cute distress Head/eyes: atraumatic, EOMI, normocephalic, norm al conjunctiva/sclera, PERRLA ENT: normal ear left, normal ear right, normal n ose, normal pharynx, moist mucosal membranes Neck: full range of motion, no lymphadenopathy, supple/no meningismus Cardiovascular: regular rate rhythm Respiratory: clear to auscultation, no distress, aerating well Abdomen: soft, non-tender, no distention , active bowel sounds in all quarants. 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, no sensory deficit s, CNII-XII grossly intact Considered stroke alert: no Skin: dry, normal color Psychiatry: normal affect Results Findings/data: Laboratory Tests: 09/08 09/08 09/08 09/08 09/08 1955 1828 1611 1318 1045 Chemistry POC Glucose (70 - 110 MG/DL) 106 120 H 101 Iron (35 - 150 mcg/dL) 10 L TIBC (260 - 445 mcg/dL) 138 L % Saturation (14 - 34 %) 7.2 L Unsat Iron Binding (mcg/dL) 128 Ferritin (23.9 - 336.2 ng/mL) 700.5 H Lactate Dehydrogenase (87 - 241 193 IUnits/L) Hematology Retic Count (auto) (0.3 - 2.3 %) 1.3 Toxicology Random Vancomycin (mcg/mL) 15.8 09/08 09/08 09/08 1033 0616 0615 Chemistry Sodium (134 - 147 mEq/L) 135 Potassium (3.4 - 5.0 mEq/L) 4.6 Chloride (100 - 108 mEq/L) 107 Carbon Dioxide (21 - 33 mEq/l) 22 Anion Gap (0 - 20) 10 BUN (7 - 18 mg/dL) 22 H Creatinine (0.6 - 1.3 mg/dL) 1.4 H Glomerular Filtr Rate (90 - 95) 58.3 L Glucose (70 - 110 mg/dL) 100 POC Glucose (70 - 110 MG/DL) 99 101 Calcium (8.0 - 10.5 mg/dL) 8.1 Magnesium (1.80 - 2.40 mg/dL) 1.58 L Total Creatine Kinase (46 - 171 Units/L) 22 L Albumin (3.4 - 5.0 g/dL) 1.30 L Prealbumin (16.0 - 40.0 mg/dL) < 5.0 L Hematology WBC (4.5 - 11.0 x10 3/uL) 9.1 RBC (4.00 - 5.60 x10 6/uL) 3.05 L Hgb (12.5 - 16.9 g/dL) 8.5 L Hct (37.5 - 50.7 %) 26.2 L MCV (81.0 - 99.0 fL) 85.9 MCH (27.0 - 33.0 pg) 27.9 MCHC (33.0 - 37.0 g/dL) 32.4 L RDW (11.5 - 14.5 %) 13.5 Plt Count (150 - 400 x10 3/uL) 231 MPV (7.0 - 9.0 fL) 9.6 H Neut % (Auto) (56.0 - 77.0 %) 73.3 Lymph % (Auto) (14.0 - 32.0 %) 13.7 L Boundary % (Auto) (4.8 - 9.0 %) 7.2 Eos % (Auto) (0.3 - 3.7 %) 4.8 H Baso % (Auto) (0.0 - 2.0 %) 0.3 Neut # (Auto) (2.0 - 7.6 x10 3/uL) 6.64 Lymph # (Auto) (1.0 - 3.8 x10 3/uL) 1.24 Boundary # (Auto) (0.1 - 0.8 x10 3/uL) 0.65 Eos # (Auto) (0.0 - 0.2 x10 3/uL) 0.43 H Baso # (Auto) (0.0 - 0.2 x10 3/uL) 0.03 Abs Immat Gran (auto) (0.00 - 0.03 x10 3/uL) 0. 06 H Add Manual Diff NO Immature Gran % (0.0 - 2.0 %) 0.7 Nucleated RBC % (0 - 0 %) 0.0 Nucleated RBCs # (Man) (0.0 - 0.1 x10 3/uL) 0.0 0 Diagnosis, Assessment Plan Free text A P: A/P: Patient is a 56 year old male who presents with: Recent prostate abscess -Status post TURP with unroofing of abscess -IV antibiotics with vancomycin until 09-24-2022 Acute postoperative pain, right foot and ankle g angrene, requiring BKA -Patient is at risk for further amputations or l oss of limb due to comorbid conditions -Status post right BKA 08/28/2022 -Tylenol 650 mg p.o. every 6 hours as needed ofelia n scale 1 3 -Check 10/325 1 tablet p.o. every 4 hours as nee ded pain scale 4 10 -Dilaudid 0.5 mg IV every 6 hours as needed pain scale 7 10, second line therapy -patient will require close monitoring while usi ng IV narcotics for any deleterious effect -Lidoderm patch to left ankle daily -IV antibiotics with vancomycin until 5- -Local wound care -manageable Diabetic peripheral neuropathy -patient is based on adrenal insufficiency -amitriptyline 25mg PO QHS -manageable Uncontrolled diabetes, diabetes with complicatio ns, recent DKA -Hemoglobin A1c 13.4 -Recent right foot and ankle gangrene -Insulin sliding scale, FSBS, good glycemic cont rol Hypertension -We will monitor hypertension and tachycardia du e to pain, and hypotension as well as bradycardia secondary over sedation with narcotics -Hydralazine as needed Elevated LFTs -08/20/22-AST 51, ALT 22 -09/03/2022-AST 15, ALT 7 -Patient will require close monitoring since he is using narcotics with Tylenol Impaired functional mobility, balance, gait, and endurance -PT/OT Constipation -We will monitor while utilizing opioid narcotic medications. -Adequate fluid intake also discussed. -Colace 100 mg p.o. twice daily as needed -Dulcolax 10 mg rectally daily as needed -Senna lax 8.6mg daily -Miralax 17gm daily -manageable Disposition: Past Medical History: Prostate abscess, right fo ot foot and ankle gangrene, diabetes, hypertension, hyperlipidemia Past Surgical History: TURP, right BKA Family History: Noncontributory Social History: Denies tobacco, alcohol, or drug use Allergies: NKDA Patient has failed conservative medical therapy. Patient will require monitoring while utilize na rcotic medications for any adverse effects, and will adjust as needed Plan of care discussed with patient and nurse All diagnostics of last 24 hours been reviewed. Risks versus benefits of opioid medications were reviewed to include, but not limited to respiratory depression, accid ental overdose, altered mental status, sudden , constipation which could result in bowel obstruction, seizures, withdrawal, dependency addiction, risk for falls . Case discussed with Dr Ng whom agrees. Thank you for the consultation. [place] [facility] NURSE: -database searched, no information found Kingsley Ng 09/28/221927: Attestations Physician Attestation Agree w/findings plan: The patient was seen and exa mined by Charlie Quiroga. I personally developed the care plan, which was continued by the mid-level provider. I was immediately available. at 1617 Electronically Signed by Kingsley Ng MD on 3 at 1929 RPT #:[id number] END OF REPORT 2022-09-08 20:33:00-00:00 [facility] Podiatry Progress Note REPORT#:[id number] REPORT STATUS: Signed DATE:09/08/22 TIME: 2032 PATIENT: KARMA ROWLAND UNIT #: [id number] ROOM/BED: [place] [id number] : 63 AGE: 56 SEX: M ATTEND: Fredy Vences MD ADM AUTHOR: Liam Pedersen DPM * ALL edits or amendments must be made on the [employer] document * Subjective Chief complaint: left heel ulcer. left ankle pain Patient reports: no confusion, no diarrh ea, no headache, no itching, no nausea Comments: keeps oralia wraps on even when sleeping. i advised him against it. pt seen early this am. with him but she' s asleep. so history only from pt and staff. events noted. has been happy with his progress with therapy. Objective General VS: Last Documented: Result Date Time Pulse Ox 96 09/09 2003 B/P 150/73 09/09 2003 B/P Mean 98.9 09/09 2003 Temp 36.6 09/09 2003 Pulse 91 09/09 2003 Resp 15 09/09 2003 O2 Delivery Room air 09/08 1345 O2 Flow Rate 2 09/08 1322 PATIENT WEIGHT: Weight (lb): 165 Weight (oz): 5.55 Weight (kg): 75.000 Medications: Active Meds + DC'd Last 24 Hrs Carvedilol (COREG) 12.5 MG C BK DIN PO Magnesium Sulfate (MAGNESIUM SULFATE 2GM/SWFI 50 ML) 50 ML ONCE ONE IV ( DC) Hydromorphone HCl (DILAUDID) 0.5 MG Q6H PRN PRN IV Vancomycin HCl (VANCOMYCIN HCL) 500 MG Q24H IV Sodium Chloride (SODIUM CHLORIDE 0.9% 100 ML) 1 00 ML Propofol (DIPRIVAN 200MG/20ML INJECTION) 20 ML . STK-MED ONE IV (DC) Fentanyl Citrate (SUBLIMAZE) 0 .STK-MED ONE .ROU TE (DC) Propofol (DIPRIVAN 200MG/20ML INJECTION) 20 ML . STK-MED ONE IV (DC) Lidocaine HCl (XYLOCAINE) 0 .STK-MED ONE .ROUTE (DC) Fentanyl Citrate (SUBLIMAZE) 100 MCG PACU Q10MIN PRN PRN IV (DC) Fentanyl Citrate (SUBLIMAZE) 50 MCG PACU Q10MIN PRN PRN IV (DC) Hydralazine HCl (APRESOLINE) 2 MG PACU Q10MIN NV N PRN IV (DC) Insulin Human Lispro (HUMALOG) 0 PACU ONCE PRN S UBQ (DC) Labetalol HCl (LABETALOL HCL) 5 MG PACU Q10MIN P RN PRN IV (DC) Ondansetron HCl (ZOFRAN) 4 MG PACU ONCE PRN IV ( DC) Carvedilol (COREG) 3.125 MG C BK DIN PO (DC) Polyethylene Glycol/Electrolytes (GOLYTELY) 2,00 0 ML ONCE ONE PO (DC) Insulin Glargine (Lantus/Semglee) 5 UNIT BEDTIME SUBQ Furosemide (LASIX 20MG INJ) 20 MG BLOOD-DOSE BET WEEN IV (CKD) Sodium Chloride (SODIUM CHLORIDE) 10 ML ASDIR IV Furosemide (LASIX) 20 MG DAILY PO Pantoprazole Sodium (PROTONIX) 40 MG Q12HR IV Polyethylene Glycol (MIRALAX) 17 GM DAILY PO Sennosides (Senna Lax 8.6 MG TABLET) 8.6 MG MADALYN Y PO Sodium Chloride (SODIUM CHLORIDE) 10 ML ASDIR NV N IV Amitriptyline HCl (ELAVIL) 25 MG BEDTIME PO Mupirocin (BACTROBAN 2% 22 GM OINTMENT) 1 APPLIC BID NASAL Zinc Oxide (ZINC OXIDE 30 GM OINTMENT) 1 APPLIC DAILY TOPICAL Sterile Water (WATER FOR IRRIGATION) DRESSING CH GELACIO ASDIR PRN IRR Insulin Human Lispro (HUMALOG) 0 AC HS SUBQ Dextrose/Water (DEXTROSE 10% IN WATER) 125 ML DIR PRN IV (CKD) Dextrose/Water (DEXTROSE 10% IN WATER) 250 ML DIR PRN IV (CKD) Glucagon (GLUCAGON) 1 MG ASDIR PRN IM Hydrocodone Bitart/Acetaminophen (NORCO 10/325) 1 TAB Q4H PRN PRN PO Hydromorphone HCl (DILAUDID) 1 MG Q6H PRN PRN IV (DC) Lidocaine (LIDODERM) 1 PATCH DAILY TOPICAL Insulin Human Lispro (HUMALOG) 5 UNIT AC SUBQ Miscellaneous Information (VANCOMYCIN PHARMACY T O DOSE) 1 EACH ASDIR IV (CKD) Heparin Sodium (HEPARIN 5000 UNITS/ML) 5,000 UNI T Q8HR SUBQ (DA) Cefepime HCl (MAXIPIME) 1 GM Q6H IV Sodium Chloride (SODIUM CHLORIDE) 10 ML Acetaminophen (TYLENOL) 650 MG Q6H PRN PRN PO Bisacodyl (DULCOLAX) 10 MG DAILY PRN PRN RECTAL Docusate Sodium (COLACE) 100 MG Q12H PRN PRN PO Hydralazine HCl (APRESOLINE) 10 MG Q6H PRN PRN I V Ondansetron HCl (ZOFRAN) 4 MG Q6H PRN PRN IV I O: 24 hour I O ending at 0700: 09/08 0700 04/ 1900 Intake Total 2000 Output Total 600 Balance 1400 Intake, Oral 2000 Number 2 Bowel Movements Number 0 Incontinent Voids Number Voids 0 Output, Urine 600 Dietitian nutrition assessment The data set between the solid lines has been im ported from the dietitian's assessment. BMI Calculated: 26.7 Nutrition related diagnosis: Nutrition diagnosis details: Nutrition problem: Altered nutrition labs Nutrition etiology: DM Nutrition signs and symptoms: HYPER/HYPOGLYCEMIA , A1C >14 Nutrition prescription: CONTINUE DM DIET Dietitian name: Klaus Kaiser, DIET Assessment completed: 09/03/22 Physical Exam General appearance: alert, awake, oriented, plea delia, conversational, mental status normal Wound/incision: Location: left foot Site condition: dp/pt 2/4 left. light touch dec reased left foot. ulcer starting at posterior left heel. eccymosis noted . early likely stage 1. left ankle has edema. pain with aggressive ROM left a nkle. LE vascular pulse assess: 2+ L posterior tibialis, 2+ L dorsalis pedis Considered stroke alert: no Ulcer: Location: DTI dorsal left midfoot Results Findings/Data: Laboratory Tests: 09/085 1828 1611 1318 1045 Chemistry POC Glucose (70 - 110 MG/DL) 106 120 H 101 Iron (35 - 150 mcg/dL) 10 L TIBC (260 - 445 mcg/dL) 138 L % Saturation (14 - 34 %) 7.2 L Unsat Iron Binding (mcg/dL) 128 Ferritin (23.9 - 336.2 ng/mL) 700.5 H Lactate Dehydrogenase (87 - 241 193 IUnits/L) Hematology Retic Count (auto) (0.3 - 2.3 %) 1.3 Toxicology Random Vancomycin (mcg/mL) 15.8 09/08 09/08 09/08 09/07 1033 0616 0615 2238 Chemistry Sodium (134 - 147 mEq/L) 135 Potassium (3.4 - 5.0 mEq/L) 4.6 Chloride (100 - 108 mEq/L) 107 Carbon Dioxide (21 - 33 mEq/l) 22 Anion Gap (0 - 20) 10 BUN (7 - 18 mg/dL) 22 H Creatinine (0.6 - 1.3 mg/dL) 1.4 H Glomerular Filtr Rate (90 - 95) 58.3 L Glucose (70 - 110 mg/dL) 100 POC Glucose (70 - 110 MG/DL) 99 101 135 H Calcium (8.0 - 10.5 mg/dL) 8.1 Magnesium (1.80 - 2.40 mg/dL) 1.58 L Total Creatine Kinase (46 - 171 Units/L) 22 L Albumin (3.4 - 5.0 g/dL) 1.30 L Prealbumin (16.0 - 40.0 mg/dL) < 5.0 L Hematology WBC (4.5 - 11.0 x10 3/uL) 9.1 RBC (4.00 - 5.60 x10 6/uL) 3.05 L Hgb (12.5 - 16.9 g/dL) 8.5 L Hct (37.5 - 50.7 %) 26.2 L MCV (81.0 - 99.0 fL) 85.9 MCH (27.0 - 33.0 pg) 27.9 MCHC (33.0 - 37.0 g/dL) 32.4 L RDW (11.5 - 14.5 %) 13.5 Plt Count (150 - 400 x10 3/uL) 231 MPV (7.0 - 9.0 fL) 9.6 H Neut % (Auto) (56.0 - 77.0 %) 73.3 Lymph % (Auto) (14.0 - 32.0 %) 13.7 L Boundary % (Auto) (4.8 - 9.0 %) 7.2 Eos % (Auto) (0.3 - 3.7 %) 4.8 H Baso % (Auto) (0.0 - 2.0 %) 0.3 Neut # (Auto) (2.0 - 7.6 x10 3/uL) 6.64 Lymph # (Auto) (1.0 - 3.8 x10 3/uL) 1.24 Boundary # (Auto) (0.1 - 0.8 x10 3/uL) 0.65 Eos # (Auto) (0.0 - 0.2 x10 3/uL) 0.43 H Baso # (Auto) (0.0 - 0.2 x10 3/uL) 0.03 Abs Immat Gran (auto) (0.00 - 0.03 x10 3/uL) 0. 06 H Add Manual Diff NO Immature Gran % (0.0 - 2.0 %) 0.7 Nucleated RBC % (0 - 0 %) 0.0 Nucleated RBCs # (Man) (0.0 - 0.1 x10 3/uL) 0. 00 09/070 Chemistry POC Glucose (70 - 110 MG/DL) 127 H Diagnosis, Assessment Plan Free Text A P: DM with neuropathy early decub ulcer left heel OA/edema left ankle DTI dorsal left midfoot zinc oxide to foot and heel foam to heel on IV abx offloading boot oralia wraps to ankle, only when OOB with therapy. Consultants: cardiology, endocrinology, hospital ist, infectious disease, podiatry Electronically Signed by Liam Pedersen DPM on 0 09/08/22 at 5 RPT #:[id number] END OF REPORT 2022-09-08 17:06:00-00:00 [facility] ([facility]) Nephrology Consultation Note REPORT#:[id number] REPORT STATUS: Signed DATE:09/08/22 TIME: 170 PATIENT: KARMA ROWLAND UNIT #: [id number] ROOM/BED: [place] [address] : 63 AGE: 56 SEX: M ATTEND: Fredy Vences MD ADM AUTHOR: Barrera Ramírez MD * ALL edits or amendments must be made on the [employer]computer document * History of Present Illness Requesting clinician: Lisandro Vences Reason for consult: Elevated creatinine/?Anemia due to decreased GFR Chief complaint: Infected foot HPI: Patient seen and evaluated on 09/09/2022, note [facility], records reviewed and orders placed on 09/08/2022, 56-year-old male with history of diabetes mellitus type 2, hypertension and per ipheral vascular disease who was initially admitted to acute care with altered mental status and rig ht foot infection/gangrene, 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 Patient had persistent anemia requiring blood transfusion. H is fecal occult blood was positive and his creatinine was 1.2 and increase d to 1.4 today, laboratories today showed hemoglobin 8.5, platelet 231, blood count 9.1, sodium 135, potassium 4.6, CO2 22, BUN 22, creatinin e 1.4. Renal consult was requested for evaluation management of pako vated BUN and creatinine and if his decreased GFR is contributing to his anemia. History - Adult longitudinal Additional medical history: DM 2 since age 33 DM neuropathy HTN hyperlipidemia Additional surgical history: as above Additional family history: reviewed and non contributory Alcohol use: Denies EtOH use Drug use: Denies recreational drugs Smoking status for patients 13 years old or olde r: Never Smoker Other social history: Local resident, Good socia l support Allergies: Coded Allergies: No Known Allergies (03/23/11) Review of Systems Constitutional: Reports: fatigue. Denies: chills, fever. Skin: Reports: swelling. Denies: rash. Allergy/Immun: Denies: hives, itching. Eyes: Denies: redness, discharge. ENT: Denies: ear drainage, ear ringing. Respiratory: Denies: hemoptysis, SOB. Cardiovascular: Denies: chest pain. GI: Denies: abdominal pain, nausea, vomiting. : Denies: dysuria, flank pain. Musculoskeletal: Reports: extremity pain. Denies: arthritis. Heme: Denies: bleeding, bruising. Endocrine: Denies: cold intolerance, heat intolerance. Neuro: Denies: change in LOC, seizure. Psych: Denies: agitation, anxiety. Objective General VS/I O: Vital Signs: Date Time Temp Pulse Resp B/P B/P Pulse O2 O2 F low FiO2 Mean Ox Delivery Rate 09/08 1632 88 159/80 106.2 98 09/08 1345 36.8 85 12 163/85 96 Room air 09/08 1340 85 14 157/86 98 09/08 1335 87 14 155/84 98 09/08 1330 80 16 152/80 99 09/08 1325 82 14 146/75 99 Room air 09/08 1322 Nasal 2 cannula 09/08 1322 36.7 80 10 131/71 95 Nasal 2 cannula 09/08 1225 90 12 170/85 99 Room air 09/08 0711 36.7 92 20 151/78 102.1 09/07 2358 91 160/78 105 09/07 2335 37.1 91 14 163/82 108.9 95 09/07 2215 98 158/88 111 09/07 2000 36.3 87 17 175/88 116.8 97 24 hour I O ending at 0700: 09/08 0700 09/07 1900 Intake Total 2000 Output Total 600 Balance 1400 Intake, Oral 1999 Number 2 Bowel Movements Number 0 Incontinent Voids Number Voids 0 Output, Urine 600 PATIENT WEIGHT: Weight (lb): 165 Weight (oz): 5.55 Weight (kg): 75.000 Medications: Active Meds + DC'd Last 24 Hrs Hydromorphone HCl (DILAUDID) 0.5 MG Q6H PRN PRN IV Vancomycin HCl (VANCOMYCIN HCL) 500 MG Q24H IV Sodium Chloride (SODIUM CHLORIDE 0.9% 100 ML) 100 ML Propofol (DIPRIVAN 200MG/20ML INJECTION) 20 ML . STK-MED ONE IV (DC) Fentanyl Citrate (SUBLIMAZE) 0 .STK-MED ONE .ROU TE (DC) Propofol (DIPRIVAN 200MG/20ML INJECTION) 20 ML . STK-MED ONE IV (DC) Lidocaine HCl (XYLOCAINE) 0 .STK-MED ONE .ROUTE (DC) Fentanyl Citrate (SUBLIMAZE) 100 MCG PACU Q10MIN PRN PRN IV (DC) Fentanyl Citrate (SUBLIMAZE) 50 MCG PACU Q10MIN PRN PRN IV (DC) Hydralazine HCl (APRESOLINE) 2 MG PACU Q10MIN NV N PRN IV (DC) Insulin Human Lispro (HUMALOG) 0 PACU ONCE PRN S UBQ (DC) Labetalol HCl (LABETALOL HCL) 5 MG PACU Q10MIN P RN PRN IV (DC) Ondansetron HCl (ZOFRAN) 4 MG PACU ONCE PRN IV (DC) Carvedilol (COREG) 3.125 MG C BK DIN PO Polyethylene Glycol/Electrolytes (GOLYTELY) 2,00 0 ML ONCE ONE PO (DC) Insulin Glargine (Lantus/Semglee) 5 UNIT BEDTIME SUBQ Polyethylene Glycol/Electrolytes (GOLYTELY) 2,00 0 ML ONCE ONE PO (DC) Furosemide (LASIX 20MG INJ) 20 MG BLOOD-DOSE BET WEEN IV (CKD) Sodium Chloride (SODIUM CHLORIDE) 10 ML ASDIR IV Furosemide (LASIX) 20 MG DAILY PO Pantoprazole Sodium (PROTONIX) 40 MG Q12HR IV Polyethylene Glycol (MIRALAX) 17 GM DAILY PO Sennosides (Senna Lax 8.6 MG TABLET) 8.6 MG MADALYN Y PO Sodium Chloride (SODIUM CHLORIDE) 10 ML ASDIR NV N IV Amitriptyline HCl (ELAVIL) 25 MG BEDTIME PO Mupirocin (BACTROBAN 2% 22 GM OINTMENT) 1 APPLIC BID NASAL Zinc Oxide (ZINC OXIDE 30 GM OINTMENT) 1 APPLIC DAILY TOPICAL Sterile Water (WATER FOR IRRIGATION) DRESSING CH GELACIO ASDIR PRN IRR Insulin Human Lispro (HUMALOG) 0 AC HS SUBQ Dextrose/Water (DEXTROSE 10% IN WATER) 125 ML DIR PRN IV (CKD) Dextrose/Water (DEXTROSE 10% IN WATER) 250 ML DIR PRN IV (CKD) Glucagon (GLUCAGON) 1 MG ASDIR PRN IM Hydrocodone Bitart/Acetaminophen (NORCO 10/325) 1 TAB Q4H PRN PRN PO Hydromorphone HCl (DILAUDID) 1 MG Q6H PRN PRN IV (DC) Lidocaine (LIDODERM) 1 PATCH DAILY TOPICAL Insulin Human Lispro (HUMALOG) 5 UNIT AC SUBQ Miscellaneous Information (VANCOMYCIN PHARMACY T O DOSE) 1 EACH ASDIR IV (CKD) Heparin Sodium (HEPARIN 5000 UNITS/ML) 5,000 UNI T Q8HR SUBQ (DA) Cefepime HCl (MAXIPIME) 1 GM Q6H IV Sodium Chloride (SODIUM CHLORIDE) 10 ML Acetaminophen (TYLENOL) 650 MG Q6H PRN PRN PO Bisacodyl (DULCOLAX) 10 MG DAILY PRN PRN RECTAL Docusate Sodium (COLACE) 100 MG Q12H PRN PRN PO Hydralazine HCl (APRESOLINE) 10 MG Q6H PRN PRN I V Ondansetron HCl (ZOFRAN) 4 MG Q6H PRN PRN IV Physical Exam General appearance: alert, no acute distress Head/eyes: atraumatic, normocephalic ENT: normal nose Neck: non-tender, supple/no meningismus Cardiovascular: normal heart sounds, no rub Respiratory: aerating well, symmetric expansion Abdomen: non-tender, soft Genitourinary: no flank pain Extremities: pitting edema, non-tender Musculoskeletal: no CVA tenderness, no tendernes s 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, 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 Considered stroke alert: no Skin: dry, intact Results Findings/Data: Laboratory Tests 09/08 09/08 09/08 09/08 09/08 1611 1318 1033 0616 0615 Chemistry Sodium (134 - 147 mEq/L) 135 Potassium (3.4 - 5.0 mEq/L) 4.6 Chloride (100 - 108 mEq/L) 107 Carbon Dioxide (21 - 33 mEq/l) 22 Anion Gap (0 - 20) 10 BUN (7 - 18 mg/dL) 22 H Creatinine (0.6 - 1.3 mg/dL) 1.4 H Glomerular Filtr Rate (90 - 95) 58.3 L Glucose (70 - 110 mg/dL) 100 POC Glucose (70 - 110 MG/DL) 120 H 101 99 101 Calcium (8.0 - 10.5 mg/dL) 8.1 Magnesium (1.80 - 2.40 mg/dL) 1.58 L Total Creatine Kinase (46 - 171 22 L Units/L) Albumin (3.4 - 5.0 g/dL) 1.30 L Prealbumin (16.0 - 40.0 mg/dL) < 5.0 L 09/07 09/07 09/07 09/07 09/07 2238 2110 1554 1137 1127 Chemistry POC Glucose (70 - 110 MG/DL) 135 H 127 H 112 H 51 L 42 L 09/07 09/07 09/06 09/06 09/06 0618 0510 2226 2108 1547 Chemistry Creatinine (0.6 - 1.3 mg/dL) 1.4 H POC Glucose (70 - 110 MG/DL) 135 H 192 H 211 H 119 H 09/06 09/06 09/06 09/05 1051 0538 0536 1910 Chemistry Creatinine (0.6 - 1.3 mg/dL) 1.4 H POC Glucose (70 - 110 MG/DL) 92 124 H 117 H Laboratory Tests 09/08 09/07 09/06 0615 0510 0538 Hematology WBC (4.5 - 11.0 x10 3/uL) 9.1 RBC (4.00 - 5.60 x10 6/uL) 3.05 L Hgb (12.5 - 16.9 g/dL) 8.5 L 8.4 L 8.6 L Hct (37.5 - 50.7 %) 26.2 L 26.2 L 26.1 L MCV (81.0 - 99.0 fL) 85.9 MCH (27.0 - 33.0 pg) 27.9 MCHC (33.0 - 37.0 g/dL) 32.4 L RDW (11.5 - 14.5 %) 13.5 Plt Count (150 - 400 x10 3/uL) 231 MPV (7.0 - 9.0 fL) 9.6 H Neut % (Auto) (56.0 - 77.0 %) 73.3 Lymph % (Auto) (14.0 - 32.0 %) 13.7 L Boundary % (Auto) (4.8 - 9.0 %) 7.2 Eos % (Auto) (0.3 - 3.7 %) 4.8 H Baso % (Auto) (0.0 - 2.0 %) 0.3 Neut # (Auto) (2.0 - 7.6 x10 3/uL) 6.64 Lymph # (Auto) (1.0 - 3.8 x10 3/uL) 1.24 Boundary # (Auto) (0.1 - 0.8 x10 3/uL) 0.65 Eos # (Auto) (0.0 - 0.2 x10 3/uL) 0.43 H Baso # (Auto) (0.0 - 0.2 x10 3/uL) 0.03 Abs Immat Gran (auto) (0.00 - 0.03 x10 3/uL) 0. 06 H Add Manual Diff NO Immature Gran % (0.0 - 2.0 %) 0.7 Nucleated RBC % (0 - 0 %) 0.0 Nucleated RBCs # (Man) (0.0 - 0.1 x10 3/uL) 0.0 0 Laboratory Tests 09/08 09/07 09/06 1045 0510 1553 Toxicology Vancomycin Trough (10.0 - 20.0 mcg/mL) 18.9 Random Vancomycin (mcg/mL) 15.8 14.7 Laboratory Tests 09/08 09/08 09/08 09/08 09/08 1611 1318 1033 0616 0615 Chemistry Sodium (134 - 147 mEq/L) 135 Potassium (3.4 - 5.0 mEq/L) 4.6 Chloride (100 - 108 mEq/L) 107 Carbon Dioxide (21 - 33 mEq/l) 22 Anion Gap (0 - 20) 10 BUN (7 - 18 mg/dL) 22 H Creatinine (0.6 - 1.3 mg/dL) 1.4 H Glomerular Filtr Rate (90 - 95) 58.3 L Glucose (70 - 110 mg/dL) 100 POC Glucose (70 - 110 MG/DL) 120 H 101 99 101 Calcium (8.0 - 10.5 mg/dL) 8.1 Magnesium (1.80 - 2.40 mg/dL) 1.58 L Total Creatine Kinase (46 - 171 22 L Units/L) Albumin (3.4 - 5.0 g/dL) 1.30 L Prealbumin (16.0 - 40.0 mg/dL) < 5.0 L 09/078 2110 Chemistry POC Glucose (70 - 110 MG/DL) 135 H 127 H Laboratory Tests 09/08 0615 Hematology WBC (4.5 - 11.0 x10 3/uL) 9.1 RBC (4.00 - 5.60 x10 6/uL) 3.05 L Hgb (12.5 - 16.9 g/dL) 8.5 L Hct (37.5 - 50.7 %) 26.2 L MCV (81.0 - 99.0 fL) 85.9 MCH (27.0 - 33.0 pg) 27.9 MCHC (33.0 - 37.0 g/dL) 32.4 L RDW (11.5 - 14.5 %) 13.5 Plt Count (150 - 400 x10 3/uL) 231 MPV (7.0 - 9.0 fL) 9.6 H Neut % (Auto) (56.0 - 77.0 %) 73.3 Lymph % (Auto) (14.0 - 32.0 %) 13.7 L Boundary % (Auto) (4.8 - 9.0 %) 7.2 Eos % (Auto) (0.3 - 3.7 %) 4.8 H Baso % (Auto) (0.0 - 2.0 %) 0.3 Neut # (Auto) (2.0 - 7.6 x10 3/uL) 6.64 Lymph # (Auto) (1.0 - 3.8 x10 3/uL) 1.24 Boundary # (Auto) (0.1 - 0.8 x10 3/uL) 0.65 Eos # (Auto) (0.0 - 0.2 x10 3/uL) 0.43 H Baso # (Auto) (0.0 - 0.2 x10 3/uL) 0.03 Abs Immat Gran (auto) (0.00 - 0.03 x10 3/uL) 0. 06 H Add Manual Diff NO Immature Gran % (0.0 - 2.0 %) 0.7 Nucleated RBC % (0 - 0 %) 0.0 Nucleated RBCs # (Man) (0.0 - 0.1 x10 3/uL) 0. 00 Laboratory Tests 09/08 1045 Toxicology Random Vancomycin (mcg/mL) 15.8 Diagnosis, Assessment Plan Consultants: cardiology, endocrinology, hospital ist, infectious disease, podiatry Free Text DxA P Notes Free text DxA P notes: Patient seen and evaluated, discussed with care team, images and laboratories reviewed. Diabetes mellitus: Insulin: Monitor bloo d sugar closely and adjust medications as needed, followed by endocrinology. Hypertension: Blood pressure is not well controlled, increase Coreg to 12.5 mg p.o. 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 We will check serum immu nofixation. Acute kidney injury: We will check renal bladder ultrasound, check postvoid residual, check urine protein creatinine ratio Hypomagnesemia: We will supplement Electronically Signed by Barrera Ramírez MD on at 0939 RPT #:[id number] END OF REPORT 2022-09-08 16:52:00-00:00 [facility] Endocrinology Progress Note REPORT#:[id number] REPORT STATUS: Signed DATE:09/08/22 TIME: 1651 PATIENT: KARMA ROWLAND UNIT #: [id number] [place] [facility] [place] : [place] AGE: 56 SEX: M ATTEND: Fredy Vences MD ADM AUTHOR: Braxton Chapin MD * ALL edits or amendments must be made on the el ectronic/computer document * Subjective Patient reports: no complaints Objective General VS: Last Documented: Result Date Time Pulse Ox 98 09/08 1632 B/P 159/80 09/08 1632 B/P Mean 106.2 09/08 1632 Pulse 88 09/08 1632 O2 Delivery Room air 09/08 1345 Temp 36.8 09/08 1345 Resp 12 09/08 1345 O2 Flow Rate 2 09/08 1322 PATIENT WEIGHT: Weight (lb): 165 Weight (oz): 5.55 Weight (kg): 75.000 Medications: Active Meds + DC'd Last 24 Hrs Hydromorphone HCl (DILAUDID) 0.5 MG Q6H PRN PRN IV Vancomycin HCl (VANCOMYCIN HCL) 500 MG Q24H IV Sodium Chloride (SODIUM CHLORIDE 0.9% 100 ML) 1 00 ML Propofol (DIPRIVAN 200MG/20ML INJECTION) 20 ML . STK-MED ONE IV (DC) Fentanyl Citrate (SUBLIMAZE) 0 .STK-MED ONE .ROU TE (DC) Propofol (DIPRIVAN 200MG/20ML INJECTION) 20 ML . STK-MED ONE IV (DC) Lidocaine HCl (XYLOCAINE) 0 .STK-MED ONE .ROUTE (DC) Fentanyl Citrate (SUBLIMAZE) 100 MCG PACU Q10MIN PRN PRN IV (DC) Fentanyl Citrate (SUBLIMAZE) 50 MCG PACU Q10MIN PRN PRN IV (DC) Hydralazine HCl (APRESOLINE) 2 MG PACU Q10MIN NV N PRN IV (DC) Insulin Human Lispro (HUMALOG) 0 PACU ONCE PRN S UBQ (DC) Labetalol HCl (LABETALOL HCL) 5 MG PACU Q10MIN P RN PRN IV (DC) Ondansetron HCl (ZOFRAN) 4 MG PACU ONCE PRN IV ( DC) Carvedilol (COREG) 3.125 MG C BK DIN PO Polyethylene Glycol/Electrolytes (GOLYTELY) 2,00 0 ML ONCE ONE PO (DC) Insulin Glargine (Lantus/Semglee) 5 UNIT BEDTIME SUBQ Polyethylene Glycol/Electrolytes (GOLYTELY) 2,00 0 ML ONCE ONE PO (DC) Furosemide (LASIX 20MG INJ) 20 MG BLOOD-DOSE BET WEEN IV (CKD) Sodium Chloride (SODIUM CHLORIDE) 10 ML ASDIR IV Furosemide (LASIX) 20 MG DAILY PO Pantoprazole Sodium (PROTONIX) 40 MG Q12HR IV Polyethylene Glycol (MIRALAX) 17 GM DAILY PO Sennosides (Senna Lax 8.6 MG TABLET) 8.6 MG MADALYN Y PO Sodium Chloride (SODIUM CHLORIDE) 10 ML ASDIR NV N IV Amitriptyline HCl (ELAVIL) 25 MG BEDTIME PO Mupirocin (BACTROBAN 2% 22 GM OINTMENT) 1 APPLIC BID NASAL Zinc Oxide (ZINC OXIDE 30 GM OINTMENT) 1 APPLIC DAILY TOPICAL Sterile Water (WATER FOR IRRIGATION) DRESSING CH GELACIO ASDIR PRN IRR Insulin Human Lispro (HUMALOG) 0 AC HS SUBQ Dextrose/Water (DEXTROSE 10% IN WATER) 125 ML DIR PRN IV (CKD) Dextrose/Water (DEXTROSE 10% IN WATER) 250 ML DIR PRN IV (CKD) Glucagon (GLUCAGON) 1 MG ASDIR PRN IM Hydrocodone Bitart/Acetaminophen (NORCO 10/325) 1 TAB Q4H PRN PRN PO Hydromorphone HCl (DILAUDID) 1 MG Q6H PRN PRN IV (DC) Lidocaine (LIDODERM) 1 PATCH DAILY TOPICAL Insulin Human Lispro (HUMALOG) 5 UNIT AC SUBQ Miscellaneous Information (VANCOMYCIN PHARMACY T O DOSE) 1 EACH ASDIR IV (CKD) Heparin Sodium (HEPARIN 5000 UNITS/ML) 5,000 UNI T Q8HR SUBQ (DA) Cefepime HCl (MAXIPIME) 1 GM Q6H IV Sodium Chloride (SODIUM CHLORIDE) 10 ML Acetaminophen (TYLENOL) 650 MG Q6H PRN PRN PO Bisacodyl (DULCOLAX) 10 MG DAILY PRN PRN RECTAL Docusate Sodium (COLACE) 100 MG Q12H PRN PRN PO Hydralazine HCl (APRESOLINE) 10 MG Q6H PRN PRN I V Ondansetron HCl (ZOFRAN) 4 MG Q6H PRN PRN IV Physical Exam General appearance: alert, awake Diagnosis, Assessment Plan Hospital course to date: Laboratory Tests: 09/08 09/08 09/08 09/08 09/08 1611 1318 1045 1033 0616 Chemistry POC Glucose (70 - 110 MG/DL) 120 H 101 99 101 Toxicology Random Vancomycin (mcg/mL) 15.8 0417 /16 16 0615 2238 2110 Chemistry Sodium (134 - 147 mEq/L) 135 Potassium (3.4 - 5.0 mEq/L) 4.6 Chloride (100 - 108 mEq/L) 107 Carbon Dioxide (21 - 33 mEq/l) 22 Anion Gap (0 - 20) 10 BUN (7 - 18 mg/dL) 22 H Creatinine (0.6 - 1.3 mg/dL) 1.4 H Glomerular Filtr Rate (90 - 95) 58.3 L Glucose (70 - 110 mg/dL) 100 POC Glucose (70 - 110 MG/DL) 135 H 127 H Calcium (8.0 - 10.5 mg/dL) 8.1 Magnesium (1.80 - 2.40 mg/dL) 1.58 L Total Creatine Kinase (46 - 171 Units/L) 22 L Albumin (3.4 - 5.0 g/dL) 1.30 L Prealbumin (16.0 - 40.0 mg/dL) < 5.0 L Hematology WBC (4.5 - 11.0 x10 3/uL) 9.1 RBC (4.00 - 5.60 x10 6/uL) 3.05 L Hgb (12.5 - 16.9 g/dL) 8.5 L Hct (37.5 - 50.7 %) 26.2 L MCV (81.0 - 99.0 fL) 85.9 MCH (27.0 - 33.0 pg) 27.9 MCHC (33.0 - 37.0 g/dL) 32.4 L RDW (11.5 - 14.5 %) 13.5 Plt Count (150 - 400 x10 3/uL) 231 MPV (7.0 - 9.0 fL) 9.6 H Neut % (Auto) (56.0 - 77.0 %) 73.3 Lymph % (Auto) (14.0 - 32.0 %) 13.7 L Boundary % (Auto) (4.8 - 9.0 %) 7.2 Eos % (Auto) (0.3 - 3.7 %) 4.8 H Baso % (Auto) (0.0 - 2.0 %) 0.3 Neut # (Auto) (2.0 - 7.6 x10 3/uL) 6.64 Lymph # (Auto) (1.0 - 3.8 x10 3/uL) 1.24 Boundary # (Auto) (0.1 - 0.8 x10 3/uL) 0.65 Eos # (Auto) (0.0 - 0.2 x10 3/uL) 0.43 H Baso # (Auto) (0.0 - 0.2 x10 3/uL) 0.03 Abs Immat Gran (auto) (0.00 - 0.03 x10 3/uL) 0. 06 H Add Manual Diff NO Immature Gran % (0.0 - 2.0 %) 0.7 Nucleated RBC % (0 - 0 %) 0.0 Nucleated RBCs # (Man) (0.0 - 0.1 x10 3/uL) 0.0 0 Laboratory Tests: 09/07 09/07 09/07 09/07 09/07 1554 1137 1127 0618 0510 Chemistry Creatinine (0.6 - 1.3 mg/dL) 1.4 H POC Glucose (70 - 110 MG/DL) 112 H 51 L 42 L 13 5 H Hematology Hgb (12.5 - 16.9 g/dL) 8.4 L Hct (37.5 - 50.7 %) 26.2 L Toxicology Random Vancomycin (mcg/mL) 14.7 09/06 09/06 2226 2108 Chemistry POC Glucose (70 - 110 MG/DL) 192 H 211 H Laboratory Tests: 09/06 09/06 09/06 09/06 09/06 1553 1547 1051 0538 0536 Chemistry Creatinine (0.6 - 1.3 mg/dL) 1.4 H POC Glucose (70 - 110 MG/DL) 119 H 92 124 H Hematology Hgb (12.5 - 16.9 g/dL) 8.6 L Hct (37.5 - 50.7 %) 26.1 L Toxicology Vancomycin Trough (10.0 - 20.0 mcg/mL) 18.9 09/05 1910 Chemistry POC Glucose (70 - 110 MG/DL) 117 H Laboratory Tests: 09/05 09/05 09/04 09/04 09/04 1149 0615 2042 1630 1557 Chemistry Sodium (134 - 147 mEq/L) 134 Potassium (3.4 - 5.0 mEq/L) 5.0 Chloride (100 - 108 mEq/L) 109 H Carbon Dioxide (21 - 33 mEq/l) 21 Anion Gap (0 - 20) 9 BUN (7 - 18 mg/dL) 24 H Creatinine (0.6 - 1.3 mg/dL) 1.3 Glomerular Filtr Rate (90 - 95) 63.7 L Glucose (70 - 110 mg/dL) 75 POC Glucose (70 - 110 MG/DL) 74 103 128 H Calcium (8.0 - 10.5 mg/dL) 7.9 L Hematology Hgb (12.5 - 16.9 g/dL) 7.1 L Hct (37.5 - 50.7 %) 22.7 L Toxicology Vancomycin Trough (10.0 - 20.0 mcg/mL) 12.8 Microbiology: Date/Time Procedure - Status Source Growth 09/04 1739 Occult Blood - COMP STOOL Recent Impressions: RADIOLOGY - XR ABDOMEN 1V (KUB) 09/04 1648 Report Impression - Status: SIGNED Entered: 09/04/2022 1757 IMPRESSION: Benign appearance of the abdomen. Impression By: [email or web address] - Hakeem Soto ULTRASOUND - [facility]/L[facility] 09/05 1146 Report Impression - Status: SIGNED Entered: 09/05/2022 1333 IMPRESSION: 1. No evidence of deep vein thrombosis. 2. Complex heterogeneous hypoechoic fluid collec tion in the left calf region measuring 8.4 x 2.8 x 2.5 cm; there is no internal vascularity or peripheral hyperemia. May represe nt a hematoma. Impression By: [email or web address] - Mert Ga M.D. RADIOLOGY - XR CHEST 1 V 09/05 1432 Report Impression - Status: SIGNED Entered: 09/05/2022 1515 IMPRESSION: Minimal bibasilar pulmonary opacities Impression By: RajO - Bishop Mares M.D . Laboratory Tests: 09/04 09/04 09/04 09/04 09/04 1630 1557 1100 1031 0816 Chemistry POC Glucose (70 - 110 MG/DL) 128 H 107 99 Hematology Hgb (12.5 - 16.9 g/dL) 7.7 L Hct (37.5 - 50.7 %) 23.7 L Toxicology Vancomycin Trough (10.0 - 20.0 mcg/mL) 12.8 09/04 09/04 09/03 09/03 0721 0540 1946 1836 Chemistry POC Glucose (70 - 110 MG/DL) 87 124 H Hematology Hgb (12.5 - 16.9 g/dL) 6.8 L Hct (37.5 - 50.7 %) 21.2 L Toxicology Vancomycin Peak (30 - 40 MCG/ML) 27.4 L Microbiology: Date/Time Procedure - Status Source Growth 09/04 1037 Occult Blood - COLB STOOL 1.Diabetes mellitus type 2 uncontrolled complica tions. 2. 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 4. Sepsis 5. Prostate abscess. 6. Anemia Blood sugar 99-100 mg/dL.H/H 8.6/26.1 Adjust insulin dose. PT and OT. Electronically Signed by Braxton Chapin MD on at 1653 RPT #:[id number] END OF REPORT 2022-09-08 13:04:00-00:00 [facility] Gastroenterology Progress Note REPORT#:[id number] REPORT STATUS: Signed DATE:09/08/22 TIME: 1304 PATIENT: KARMA ROWLAND UNIT #: [id number] ROOM/BED: [place] [address] : 61 AGE: 56 SEX: M ATTEND: Fredy Vences MD ADM AUTHOR: Kassie Avitia MD * ALL edits or amendments must be made on the el [employer]/computer document * Subjective HPI: Patient is a 56-year-old male with history of di abetes mellitus type 2 and hypertension who was initially admitted for alte red mental status and right- sided foot infection. 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 The p atient is anemic with current Hgb 7.1. He has received a total of 3 un its pRBCs during this hospitalization. KUB on 09/04 was negative for acute GI process. T he patient denies overt GIB, dark tarry stools, nausea, a bdominal pain, or vomiting. He has never had EGD or colonoscopy. 09/06: No complaints today. Hemoglobin stable. No overt GI bleed. Plan for colonoscopy and endoscopy on Thursday 09/07: No complaints today. No overt GI bleed. Pl anning for colonoscopy and endoscopy tomorrow 09/08: EGD mild gastritis. colonoscopy rectal eugenia yp s/p snare. No other abnormalities Objective Physical Exam HEENT: atraumatic, normocephalic Neck: full range of motion, non-tender Respiratory: symmetric expansion, no distress Abdomen: non-tender, normal bowel sounds, soft, no distention, no guarding Extremities: right BKA Considered stroke alert: no Skin: dry Diagnosis, Assessment Plan Free Text A P: 1. Positive FOBT-KUB on 09/04 was negative for ac [place] GI process. The patient denies overt GIB, dark tarry stools, nausea, abdominal pain, or vomiting. He is not on anticoagulation therapy. -Continue PPI. The patient has never had EGD or colonoscopy -Planning for EGD and colonoscopy tomorrow -Clear liquid diet today. N.p.o. after midnight tonight. Prep ordered s/p EGD and colonoscopy. EGD showed mild gastrit is. Colonoscopy showed rectal polyp that was resected by snare. Anemia likely secondary to chronic kidney diseas e. 2. Acute on chronic anemia-n o overt GIB with current Hgb 7.1. He has received a total of 3 units pRBCs during this hospitalizati on -Monitor H/H -Monitor for GIB -Transfuse if HGB <7.0 Consultants: cardiology, endocrinology, hospital ist, infectious disease, podiatry at 1306 RPT #:[id number] END OF REPORT 2022-09-08 12:48:00-00:00 [id number] [address] PATIENT NAME: KARMA ROWLAND ADMIT DATE: 09/02 ACCOUNT NO: [id number] [place] [facility] [place] 56 REPORT TYPE: ENDOSCOPY REPORT SEX: M ADMITTING PHYSICIAN:Mj Vences MD ATTENDING PHYSICIAN:Mj Vences MD Gastroenterology Patient Name: Karma Rowland Procedure Date: 12:48 PM Date of : 1965 Procedure: Colonoscopy Indications: Iron deficiency anemia secondary to chronic blood loss Providers: Kassie Avitia MD Referring MD: Mj Vences, Requesting Provider: Medicines: Monitored Anesthesia Care Procedure: Pre-Anesthesia Assessment: - Prior to the procedure, a History and Physica l was performed, and patient medications, allergies a nd sensitivities were reviewed. The patient's harry erance of previous anesthesia was reviewed. - The risks and benefits of the procedure and t he sedation options and risks were discussed with the patient. All questions were answered and inform ed consent was obtained. - Patient identification and proposed procedure were verified prior to the procedure by the physicia n, the nurse, the railroad surveyor and the machine packaging technician. The procedure was verified in the procedure room. - Pre-procedure physical examination revealed n o contraindications to sedation. - ASA Grade Assessment: III - A patient with se joão systemic disease. - After reviewing the risks and benefits, the patient was deemed in satisfactory condition to undergo the procedure. - Monitored anesthesia care under the supervis ion of a WELDING INSPECTOR was determined to be medically necessary f or this procedure based on review of the patient's medi luciana history, medications, and prior anesthesia hist ory. After I obtained informed consent, the scope wa s passed under direct vision. Throughout the proc edure, the patient's blood pressure, pulse, and oxygen saturations were monitored continuously. The Colonoscope was introduced through the anus and advanced to the cecum, identified by appendicea l PATIENT NAME: KARMA ROWLAND [id number] orifice and ileocecal valve. The colonoscopy wa s performed without difficulty. The patient dexter ated the procedure well. The quality of the bowel preparation was good. Findings: The perianal and digital rectal examinations we re normal. The colon (entire examined portion) appeared no rmal. A 6 mm polyp was found in the rectum. The polyp was sessile. The polyp was removed with a cold snare. Resection and re trieval were complete. Internal hemorrhoids were found during retrofle xion. The hemorrhoids were medium-sized. Complications: No immediate complications. Estimated Blood Loss: Estimated blood loss: none. Impression: - The entire examined colon is felisa l. - One 6 mm polyp in the rectum, removed with a cold snare. Resected and retrieved. - Internal hemorrhoids. Recommendation: - Return patient to [facility] for ongoing care. - Resume previous diet. - Continue present medications. - Await pathology results. - Repeat colonoscopy in 5 years for surveillanc e. Procedure Code(s): --- Professional --- 64377, Colonoscopy, flexible; with removal of tumor(s), polyp(s), or other lesion(s) by snare technique Diagnosis Code(s): --- Professional --- K64.8, Other hemorrhoids K62.1, Rectal polyp D50.0, Iron deficiency anemia secondary to blo od loss (chronic) CPT copyright 2020 [employer]. All rights reserved. The codes documented in this report are prelimin shea and upon senior contracts administrator review may be revised to meet current compliance requiremen ts. Kassie Avitia MD 09/08/2022 1:04:26 PM Number of Addenda: 0 Note Initiated On: 09/08/2022 12:48 PM Provation {[id number]}.pdf ProVation FT PDF PATIENT NAME: KARMA ROWLAND [id number] at 1304 PATIENT NAME: KARMA ROWLAND [id number] 6188-04-17 12:23:00-00:[address] [facility] ([facility] Infectious Dis. Progress Note REPORT#:[id number] REPORT STATUS: Signed DATE:09/08/22 TIME: 1223 PATIENT: KARMA ROWLAND UNIT #: [id number] ROOM/BED: [place] [address] : 61 AGE: 56 SEX: M ATTEND: Fredy Vences MD ADM AUTHOR: Merry Wolff MD * ALL edits or amendments must be made on the [employer]/computer document * Subjective HPI: PT is a 56yr old male with h istory of diabetes mellitus type 2, hypertension who was admitted with altered mental status and righ t-sided foot infection. According to him, he noticed a blister on his right foot around 3 days prior to presentation. His foot got progressively more sw ollen and erythema extended proximally to his lateral foot and ankle. CT abd omen and pelvis with contrast is concerning for possible prostate abscess. CT of lower extremity without contrast shows extensive sof t tissue edema with mottled gas in the subcutaneous and intramuscular compartments of the foot, comp atible with gas-forming infection. Patient's blood cultures have come ba ck positive for MRSA in 2 out of 2 sets. PT has had persistent (+)Ve cx for MR FREITAS 08/18- 08/22. He underwent a debridement of his foot on 08/19 and cx g rew MRSA. PT was started on Vancomycin and clindamycin on 08/18. His MRI showed a prosta te abscess. 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 Pt underwent a transrectal aspiration and unroofing of prostate abscess 08/26 and cx grew Citrobacter, Enterococcus, MRSA. 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 JIMENA done 09/02. Pt was tr ansferred to Rehab on 09/02. 09/08 doing well, no changes overnight, plan for EGD/colon today Patient reports: Yes: pain controlled. No: cough, diarrhea, fever , headache, nausea, shortness of breath. Portions of this section wer e scribed by Jill Quintero on 09/08/22 at 1623 Objective General VS/I O: Vital Signs Date Temp Pulse Resp B/P B/P Mean Pulse Ox FiO2 09/07-09/08 97.3-98.8 80-98 10-20 131-175/71-88 102.1-116.8 95-99 Last Documented: Result Date Time Pulse Ox 96 09/08 1345 B/P 163/85 09/08 1345 O2 Delivery Room air 09/08 1345 Temp 98.2 09/08 1345 Pulse 85 09/08 1345 Resp 12 09/08 1345 O2 Flow Rate 2 09/08 1322 B/P Mean 102.1 09/08 0711 Vital Signs: Date Time Temp Pulse Resp B/P B/P Pulse O2 O2 F low FiO2 Mean Ox Delivery Rate 09/08 1345 98.2 85 12 163/85 96 Room air 09/08 1340 85 14 157/86 98 09/08 1335 87 14 155/84 98 09/08 1330 80 16 152/80 99 09/08 1325 82 14 146/75 99 Room air 09/08 1322 Nasal 2 cannula 09/08 1322 98.0 80 10 131/71 95 Nasal 2 cannula 09/08 1225 90 12 170/85 99 Room air 09/08 0711 98.1 92 20 151/78 102.1 09/07 2358 91 160/78 105 09/07 2335 98.8 91 14 163/82 108.9 95 09/07 2215 98 158/88 111 09/07 2000 97.3 87 17 175/88 116.8 97 24 hour I O ending at 0700: 09/08 0700 09/07 1900 Intake Total 2000 Output Total 600 Balance 1400 Intake, Oral 1999 Number 2 Bowel Movements Number 0 Incontinent Voids Number Voids 0 Output, Urine 600 PATIENT WEIGHT: Weight (lb): 165 Weight (oz): 5.55 Weight (kg): 75.000 Antibiotic start date: Antibiotic: vancomycin Start Date:09/03 Antibiotic: daptomycin Start Date:08/28-09/03 Antibiotic: cefepime Start Date:09/01- Antibiotic: merrem Start Date:08/27-09/01 Physical Exam General appearance: alert, awake, oriented Head/Eyes: atraumatic, clear cornea, EOMI, felisa l conjunctiva/sclera, normal eyelids/periorb, normocephalic, PERRL ENT: moist mucosal membranes, normal dentition Neck: full range of motion Cardiovascular: normal heart sounds, regular rat e rhythm Respiratory: clear to auscultation, aerating wel l Abdomen: non-tender, normal bowel sounds, soft Extremities: moves all, right BKA Left foot woun d +dressing in place 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 X 3 Considered stroke alert: no Skin: dry, intact Results Findings/Data: Laboratory Tests 09/08 09/08 09/08 09/07 09/07 1033 0616 0615 2238 2110 Chemistry Sodium (134 - 147 mEq/L) 135 Potassium (3.4 - 5.0 mEq/L) 4.6 Chloride (100 - 108 mEq/L) 107 Carbon Dioxide (21 - 33 mEq/l) 22 Anion Gap (0 - 20) 10 BUN (7 - 18 mg/dL) 22 H Creatinine (0.6 - 1.3 mg/dL) 1.4 H Glomerular Filtr Rate (90 - 95) 58.3 L Glucose (70 - 110 mg/dL) 100 POC Glucose (70 - 110 MG/DL) 99 101 135 H 127 H Calcium (8.0 - 10.5 mg/dL) 8.1 Magnesium (1.80 - 2.40 mg/dL) 1.58 L Total Creatine Kinase (46 - 171 22 L Units/L) Albumin (3.4 - 5.0 g/dL) 1.30 L Prealbumin (16.0 - 40.0 mg/dL) < 5.0 L 09/07 1554 Chemistry POC Glucose (70 - 110 MG/DL) 112 H Laboratory Tests 09/08 0615 Hematology WBC (4.5 - 11.0 x10 3/uL) 9.1 RBC (4.00 - 5.60 x10 6/uL) 3.05 L Hgb (12.5 - 16.9 g/dL) 8.5 L Hct (37.5 - 50.7 %) 26.2 L MCV (81.0 - 99.0 fL) 85.9 MCH (27.0 - 33.0 pg) 27.9 MCHC (33.0 - 37.0 g/dL) 32.4 L RDW (11.5 - 14.5 %) 13.5 Plt Count (150 - 400 x10 3/uL) 231 MPV (7.0 - 9.0 fL) 9.6 H Neut % (Auto) (56.0 - 77.0 %) 73.3 Lymph % (Auto) (14.0 - 32.0 %) 13.7 L Boundary % (Auto) (4.8 - 9.0 %) 7.2 Eos % (Auto) (0.3 - 3.7 %) 4.8 H Baso % (Auto) (0.0 - 2.0 %) 0.3 Neut # (Auto) (2.0 - 7.6 x10 3/uL) 6.64 Lymph # (Auto) (1.0 - 3.8 x10 3/uL) 1.24 Boundary # (Auto) (0.1 - 0.8 x10 3/uL) 0.65 Eos # (Auto) (0.0 - 0.2 x10 3/uL) 0.43 H Baso # (Auto) (0.0 - 0.2 x10 3/uL) 0.03 Abs Immat Gran (auto) (0.00 - 0.03 x10 3/uL) 0. 06 H Add Manual Diff NO Immature Gran % (0.0 - 2.0 %) 0.7 Nucleated RBC % (0 - 0 %) 0.0 Nucleated RBCs # (Man) (0.0 - 0.1 x10 3/uL) 0.0 0 Laboratory Tests 09/08 1045 Toxicology Random Vancomycin (mcg/mL) 15.8 Laboratory Tests: 09/08 09/08 09/08 09/08 1045 1033 0616 0615 Chemistry Sodium (134 - 147 mEq/L) 135 Potassium (3.4 - 5.0 mEq/L) 4.6 Chloride (100 - 108 mEq/L) 107 Carbon Dioxide (21 - 33 mEq/l) 22 Anion Gap (0 - 20) 10 BUN (7 - 18 mg/dL) 22 H Creatinine (0.6 - 1.3 mg/dL) 1.4 H Glomerular Filtr Rate (90 - 95) 58.3 L Glucose (70 - 110 mg/dL) 100 POC Glucose (70 - 110 MG/DL) 99 101 Calcium (8.0 - 10.5 mg/dL) 8.1 Magnesium (1.80 - 2.40 mg/dL) 1.58 L Total Creatine Kinase (46 - 171 Units/L) 22 L Albumin (3.4 - 5.0 g/dL) 1.30 L Prealbumin (16.0 - 40.0 mg/dL) < 5.0 L Hematology WBC (4.5 - 11.0 x10 3/uL) 9.1 RBC (4.00 - 5.60 x10 6/uL) 3.05 L Hgb (12.5 - 16.9 g/dL) 8.5 L Hct (37.5 - 50.7 %) 26.2 L MCV (81.0 - 99.0 fL) 85.9 MCH (27.0 - 33.0 pg) 27.9 MCHC (33.0 - 37.0 g/dL) 32.4 L RDW (11.5 - 14.5 %) 13.5 Plt Count (150 - 400 x10 3/uL) 231 MPV (7.0 - 9.0 fL) 9.6 H Neut % (Auto) (56.0 - 77.0 %) 73.3 Lymph % (Auto) (14.0 - 32.0 %) 13.7 L Boundary % (Auto) (4.8 - 9.0 %) 7.2 Eos % (Auto) (0.3 - 3.7 %) 4.8 H Baso % (Auto) (0.0 - 2.0 %) 0.3 Neut # (Auto) (2.0 - 7.6 x10 3/uL) 6.64 Lymph # (Auto) (1.0 - 3.8 x10 3/uL) 1.24 Boundary # (Auto) (0.1 - 0.8 x10 3/uL) 0.65 Eos # (Auto) (0.0 - 0.2 x10 3/uL) 0.43 H Baso # (Auto) (0.0 - 0.2 x10 3/uL) 0.03 Abs Immat Gran (auto) (0.00 - 0.03 x10 3/uL) 0. 06 H Add Manual Diff NO Immature Gran % (0.0 - 2.0 %) 0.7 Nucleated RBC % (0 - 0 %) 0.0 Nucleated RBCs # (Man) (0.0 - 0.1 x10 3/uL) 0. 00 Toxicology Random Vancomycin (mcg/mL) 15.8 09/07 09/07 09/07 09/07 09/07 2238 2110 1554 1137 1127 Chemistry POC Glucose (70 - 110 MG/DL) 135 H 127 H 112 H 51 L 42 L 09/07 09/07 09/06 09/06 09/06 0618 0510 2226 2108 1553 Chemistry Creatinine (0.6 - 1.3 mg/dL) 1.4 H POC Glucose (70 - 110 MG/DL) 135 H 192 H 211 H Hematology Hgb (12.5 - 16.9 g/dL) 8.4 L Hct (37.5 - 50.7 %) 26.2 L Toxicology Vancomycin Trough (10.0 - 20.0 mcg/mL) 18.9 Random Vancomycin (mcg/mL) 14.7 09/06 1547 Chemistry POC Glucose (70 - 110 MG/DL) 119 H Medication(s) Ordered: Anti-Infective Agents Sig/Jan Start time Last Medication Dose Route Stop Time Status Admin Vancomycin HCl 500 MG Q24H 09/08 1300 AC Sodium Chloride 100 ML IV 09/25 1259 Miscellaneous 1 EACH ASDIR 09/03 0130 CKD Information IV 10/03 0129 Cefepime HCl 1 GM Q6H 09/02 2100 AC 09/08 Sodium Chloride 10 ML IV 09/13 2059 0747 Blood Formation,Coagulation Sig/Jan Start time Last Medication Dose Route Stop Time Status Admin Heparin Sodium 5,000 UNIT Q8HR 09/02 2200 DA SUBQ 10/02 2159 0531 Cardiovascular Drugs Sig/Jan Start time Last Medication Dose Route Stop Time Status Admin Hydralazine HCl 2 MG PACU Q10MIN PRN PRN 09/08 0915 AC IV 09/08 1711 Labetalol HCl 5 MG PACU Q10MIN PRN PRN 09/08 09 15 AC IV 09/08 1711 Carvedilol 3.125 MG C BK DIN 09/08 0800 AC 08/23 7 PO 10/08 0759 0746 Hydralazine HCl 10 MG Q6H PRN PRN 09/01 1330 AC IV 10/01 1329 Central Nervous System Agents Sig/Jan Start time Last Medication Dose Route Stop Time Status Admin Fentanyl Citrate 100 MCG PACU Q10MIN PRN PRN 0915 AC IV 09/08 1711 Fentanyl Citrate 50 MCG PACU Q10MIN PRN PRN 0915 AC IV 09/08 1711 Amitriptyline HCl 25 MG BEDTIME 09/04 2100 AC 0 09/07 PO 10/04 2059 2231 Hydrocodone Bitart/ 1 TAB Q4H PRN PRN 09/03 14 00 AC 09/07 Acetaminophen PO 10/18 1300 1454 Hydromorphone HCl 1 MG Q6H PRN PRN 09/03 1400 A C 09/07 IV 10/18 1300 2256 Acetaminophen 650 MG Q6H PRN PRN 09/01 1330 AC PO 10/01 1329 Electrolytic, Caloric, And Daniel Sig/Jan Start time Last Medication Dose Route Stop Time Status Admin Furosemide 20 MG BLOOD-DOSE BETWEEN 09/05 1245 CKD IV 10/05 1244 Sodium Chloride 10 ML ASDIR 09/05 1245 AC IV 10/05 1244 Furosemide 20 MG DAILY 09/05 0900 AC 09/08 PO 10/05 0859 0749 Sodium Chloride 10 ML ASDIR PRN 09/05 0630 AC 0 09/08 IV 10/05 0629 0747 Sterile Water See Dose ASDIR PRN 09/03 2030 AC Insts (1) IRR 10/03 2029 Dextrose/Water 125 ML ASDIR PRN 09/03 1515 CKD IV 10/03 1514 Dextrose/Water 250 ML ASDIR PRN 09/03 1515 CKD IV 10/03 1514 Gastrointestinal Drugs Sig/Jan Start time Last Medication Dose Route Stop Time Status Admin Ondansetron HCl 4 MG PACU ONCE PRN 09/08 0915 A C IV 09/08 1711 Polyethylene Glycol/ 2,000 ML ONCE ONE 09/08 07 00 DC 09/08 Electrolytes PO 09/08 0701 0706 Polyethylene Glycol/ 2,000 ML ONCE ONE 09/07 1 800 DC 09/07 Electrolytes PO 09/07 1801 1921 Pantoprazole Sodium 40 MG Q12HR 09/05 0900 AC 0 09/08 IV 10/05 0859 0747 Polyethylene Glycol 17 GM DAILY 09/05 0900 AC 0 09/07 PO 10/05 0859 0849 Sennosides 8.6 MG DAILY 09/05 0900 AC 09/07 PO 10/05 0859 0848 Bisacodyl 10 MG DAILY PRN PRN 09/01 1330 AC RECTAL 10/01 1329 Docusate Sodium 100 MG Q12H PRN PRN 09/01 1330 AC PO 10/01 1329 Ondansetron HCl 4 MG Q6H PRN PRN 09/01 1330 AC IV 10/01 1329 Hormones And Synthetic Substit Sig/Jan Start time Last Medication Dose Route Stop Time Status Admin Insulin Human Lispro 0 PACU ONCE PRN 09/08 0915 AC SUBQ 09/08 1711 Insulin Glargine 5 UNIT BEDTIME 09/07 2100 AC 0 09/07 SUBQ 10/07 2059 2233 Insulin Glargine 7 UNIT BEDTIME 09/05 2100 DC 0 09/06 SUBQ 10/05 2059 2229 Insulin Human Lispro 0 AC HS 09/03 1630 AC 08/23 5 SUBQ 10/03 1629 2229 Glucagon 1 MG ASDIR PRN 09/03 1515 AC IM 10/03 1514 Insulin Human Lispro 5 UNIT AC 09/03 0730 AC 0 09/07 SUBQ 10/03 0729 0848 Local Anesthetics (Parenteral) Sig/Jan Start time Last Medication Dose Route Stop Time Status Admin Lidocaine 1 PATCH DAILY 09/03 0900 AC 09/07 TOPICAL 10/03 0859 0852 Skin And Mucous Membrane Agent Sig/Jan Start time Last Medication Dose Route Stop Time Status Admin Mupirocin 1 APPLIC BID 09/04 2100 AC 09/08 NASAL 09/09 0901 0748 Zinc Oxide 1 APPLIC DAILY 09/04 0900 AC 09/07 TOPICAL 10/04 0859 0852 Dose Instructions: (1)Sterile Water: DRESSING CHANGE Recent Impressions: RADIOLOGY - XR CHEST 1 V 09/05 1432 Report Impression - Status: SIGNED Entered: 09/05/2022 1515 IMPRESSION: Minimal bibasilar pulmonary opacities Impression By: Yared Campbellor, M.D . Portions of this section wer e scribed by Jill Quintero on 09/08/22 at 1623 Diagnosis, Assessment Plan Free Text A P: *MRSA bacteremia -Initial blood cultures from 08/18/2022 positive for MRSA in 2 out of 2 sets. -Repeat blood cultures 08/21/2022 are already po sitive for MRSA in 2 out of 2 sets, suggesting persistent high-grade bacteremi a. -TTE 08/18/2022 negative for any obvious vegetat ions. -08/28 neg -JIMENA 09/02 neg *Prostatic abscess -s/p transrectal aspiration and unroofing on 08/26 -cx MRSA, citrobacter (r-cefazolin) Enterococcus raffinosus (S-amp,pcn, vancomycin), bacteriodes *ERIKA *Hyponatremia *Diabetic neuropathy *Diabetes mellitus type 2 *Hypertension *anemia 09/08 -cont on Cefepime and vancomycin til 09/24 for kellen atment of Prostate abscess -follow esr and crp -EGD today Consultants: cardiology, endocrinology, hospital ist, infectious disease, podiatry Portions of this section wer e scribed by Jill Quintero on 09/08/22 at 1223 at 1135 RPT #:[id number] END OF REPORT 2022-09-08 12:08:00-00:[address] [facility] ([facility] Cardiology Progress Note REPORT#:[id number] REPORT STATUS: Signed DATE:09/08/22 TIME: 120 PATIENT: KARMA ROWLAND UNIT #: [id number] ROOM/BED: [place] [id number] : 63 AGE: 56 SEX: M ATTEND: Fredy Vences MD ADM AUTHOR: Rohit Benitez C[employer]ER * ALL edits or amendments must be made on the el [employer]/computer document * Rohit Benitez 09/08/22 1208: Subjective Chief complaint: weakness Free Text Subj Notes Free Text Subj Notes: Patient seen and evaluated. Sitting up in the wheelchair, currently n.p.o. with plan for EGD today. Continue to have lower extre mity edema. Denies chest pain or shortness of breath. Objective General VS/I O: 24 hour I O ending at 0700: 09/08 0700 09/07 1900 Intake Total 2000 Output Total 600 Balance 1400 Intake, Oral 2000 Number 2 Bowel Movements Number 0 Incontinent Voids Number Voids 0 Output, Urine 600 Vital Signs: Date Time Temp Pulse Resp B/P B/P Pulse O2 O2 F low FiO2 Mean Ox Delivery Rate 09/08 0711 98.1 92 20 151/78 102.1 09/07 2358 91 160/78 105 09/07 2335 98.8 91 14 163/82 108.9 95 09/07 2215 98 158/88 111 09/07 2000 97.3 87 17 175/88 116.8 97 09/07 1556 97.5 93 15 177/90 118.8 98 PATIENT WEIGHT: Weight (lb): 165 Weight (oz): 5.55 Weight (kg): 75.000 Medications: Active Meds + DC'd Last 24 Hrs Fentanyl Citrate (SUBLIMAZE) 100 MCG PACU Q10MIN PRN PRN IV Fentanyl Citrate (SUBLIMAZE) 50 MCG PACU Q10MIN PRN PRN IV Hydralazine HCl (APRESOLINE) 2 MG PACU Q10MIN NV N PRN IV Insulin Human Lispro (HUMALOG) 0 PACU ONCE PRN S UBQ Labetalol HCl (LABETALOL HCL) 5 MG PACU Q10MIN P RN PRN IV Ondansetron HCl (ZOFRAN) 4 MG PACU ONCE PRN IV Carvedilol (COREG) 3.125 MG C BK DIN PO Polyethylene Glycol/Electrolytes (GOLYTELY) 2,00 0 ML ONCE ONE PO (DC) Insulin Glargine (Lantus/Semglee) 5 UNIT BEDTIME SUBQ Polyethylene Glycol/Electrolytes (GOLYTELY) 2,00 0 ML ONCE ONE PO (DC) Insulin Glargine (Lantus/Semglee) 7 UNIT BEDTIME SUBQ (DC) Furosemide (LASIX 20MG INJ) 20 MG BLOOD-DOSE BET WEEN IV (CKD) Sodium Chloride (SODIUM CHLORIDE) 10 ML ASDIR IV Furosemide (LASIX) 20 MG DAILY PO Pantoprazole Sodium (PROTONIX) 40 MG Q12HR IV Polyethylene Glycol (MIRALAX) 17 GM DAILY PO Sennosides (Senna Lax 8.6 MG TABLET) 8.6 MG MADALYN Y PO Sodium Chloride (SODIUM CHLORIDE) 10 ML ASDIR NV N IV Amitriptyline HCl (ELAVIL) 25 MG BEDTIME PO Mupirocin (BACTROBAN 2% 22 GM OINTMENT) 1 APPLIC BID NASAL Zinc Oxide (ZINC OXIDE 30 GM OINTMENT) 1 APPLIC DAILY TOPICAL Sterile Water (WATER FOR IRRIGATION) DRESSING CH GELACIO ASDIR PRN IRR Insulin Human Lispro (HUMALOG) 0 AC HS SUBQ Dextrose/Water (DEXTROSE 10% IN WATER) 125 ML DIR PRN IV (CKD) Dextrose/Water (DEXTROSE 10% IN WATER) 250 ML DIR PRN IV (CKD) Glucagon (GLUCAGON) 1 MG ASDIR PRN IM Hydrocodone Bitart/Acetaminophen (NORCO 10/325) 1 TAB Q4H PRN PRN PO Hydromorphone HCl (DILAUDID) 1 MG Q6H PRN PRN IV Lidocaine (LIDODERM) 1 PATCH DAILY TOPICAL Insulin Human Lispro (HUMALOG) 5 UNIT AC SUBQ Miscellaneous Information (VANCOMYCIN PHARMACY T O DOSE) 1 EACH ASDIR IV (CKD) Heparin Sodium (HEPARIN 5000 UNITS/ML) 5,000 UNI T Q8HR SUBQ (DA) Cefepime HCl (MAXIPIME) 1 GM Q6H IV Sodium Chloride (SODIUM CHLORIDE) 10 ML Acetaminophen (TYLENOL) 650 MG Q6H PRN PRN PO Bisacodyl (DULCOLAX) 10 MG DAILY PRN PRN RECTAL Docusate Sodium (COLACE) 100 MG Q12H PRN PRN PO Hydralazine HCl (APRESOLINE) 10 MG Q6H PRN PRN I V Ondansetron HCl (ZOFRAN) 4 MG Q6H PRN PRN IV Physical Exam General appearance: alert, awake, oriented Neck: no bruit/NL carotids, no JVD Cardiovascular: CV assessment: regular rate and rhythm, no ecto py, no gallop Respiratory: clear to auscultation, no distress Abdomen: soft, non-tender Lower extremity: LE assessment: edema, normal temperature 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 X 3 Considered stroke alert: no Wound/incision: Location: right bka Psychiatry: normal affect, normal judgment/insig ht, normal mood Results Findings/Data: Laboratory Tests 09/08 09/08 09/08 09/07 09/07 1033 0616 0615 2238 2110 Chemistry Sodium (134 - 147 mEq/L) 135 Potassium (3.4 - 5.0 mEq/L) 4.6 Chloride (100 - 108 mEq/L) 107 Carbon Dioxide (21 - 33 mEq/l) 22 Anion Gap (0 - 20) 10 BUN (7 - 18 mg/dL) 22 H Creatinine (0.6 - 1.3 mg/dL) 1.4 H Glomerular Filtr Rate (90 - 95) 58.3 L Glucose (70 - 110 mg/dL) 100 POC Glucose (70 - 110 MG/DL) 99 101 135 H 127 H Calcium (8.0 - 10.5 mg/dL) 8.1 Magnesium (1.80 - 2.40 mg/dL) 1.58 L Total Creatine Kinase (46 - 171 Units/L) 22 L Albumin (3.4 - 5.0 g/dL) 1.30 L Prealbumin (16.0 - 40.0 mg/dL) < 5.0 L 09/07 1554 Chemistry POC Glucose (70 - 110 MG/DL) 112 H Laboratory Tests 09/08 0615 Hematology WBC (4.5 - 11.0 x10 3/uL) 9.1 RBC (4.00 - 5.60 x10 6/uL) 3.05 L Hgb (12.5 - 16.9 g/dL) 8.5 L Hct (37.5 - 50.7 %) 26.2 L MCV (81.0 - 99.0 fL) 85.9 MCH (27.0 - 33.0 pg) 27.9 MCHC (33.0 - 37.0 g/dL) 32.4 L RDW (11.5 - 14.5 %) 13.5 Plt Count (150 - 400 x10 3/uL) 231 MPV (7.0 - 9.0 fL) 9.6 H Neut % (Auto) (56.0 - 77.0 %) 73.3 Lymph % (Auto) (14.0 - 32.0 %) 13.7 L Boundary % (Auto) (4.8 - 9.0 %) 7.2 Eos % (Auto) (0.3 - 3.7 %) 4.8 H Baso % (Auto) (0.0 - 2.0 %) 0.3 Neut # (Auto) (2.0 - 7.6 x10 3/uL) 6.64 Lymph # (Auto) (1.0 - 3.8 x10 3/uL) 1.24 Boundary # (Auto) (0.1 - 0.8 x10 3/uL) 0.65 Eos # (Auto) (0.0 - 0.2 x10 3/uL) 0.43 H Baso # (Auto) (0.0 - 0.2 x10 3/uL) 0.03 Abs Immat Gran (auto) (0.00 - 0.03 x10 3/uL) 0. 06 H Add Manual Diff NO Immature Gran % (0.0 - 2.0 %) 0.7 Nucleated RBC % (0 - 0 %) 0.0 Nucleated RBCs # (Man) (0.0 - 0.1 x10 3/uL) 0.0 0 Laboratory Tests 09/08 1045 Toxicology Random Vancomycin (mcg/mL) 15.8 Laboratory Tests 09/08 0615 Chemistry Magnesium (1.80 - 2.40 mg/dL) 1.58 L Diagnosis, Assessment Plan Consultants: cardiology, endocrinology, hospital ist, infectious disease, podiatry Free Text DxA P Notes Free Text DxA P Notes: Impression: 1. Debility 2. Infected right foot status post BKA 3. Bacteremia 4. Diabetes 5. Hypertension 6. Anemia 07/2022: Echocardiogram with normal LVEF, grade 1 diastolic dysfunction, mildly dilated LA, and no significant valvular abnormal ities Recommendation: Patient initially presented with DKA and sepsis. Diagnosed with right foot infection, underwent I D, now status post BKA. P atient had persistent bacteremia with MRSA, underwent JIMENA with negativ e findings of endocarditis. Patient now transferred to [facility] for physical therapy. Known cardiac history of hypertension and hyperlipide renetta. Vital signs stable. Echocardiogram with normal LVEF, grade 1 diastolic dysfunction, mildly dila carlos LA, and no significant valvular abnormalities. Continue to monitor bloo d pressure trend. Continue wound care and IV antibiotic therapy. Continue P T/OT. Supportive care. 09/04: Patient complaining of shortness of breath, abdominal distention and lower extremity edema. Renal function and electrolytes stable. Will give one-time dose of IV Lasix 40 mg. Blood pressure stable. P ending abdominal x-ray. Monitor intake and output. Check BMP in the morn ing. Supportive care. Plan of care discussed with patient, RN and Dr. Parham. 09/05: Patient responded well to IV Lasix , good urine output and improvement in shortness of breath. Chest x-ray ordered . Currently on Lasix 20 mg p.o. daily. Continue monitor renal function and electrolyte s. Pending lower extremity Doppler for lower extremity edema. Continue PT/O T. Supportive care. Plan of care discussed with patient, RN and Dr. Parham. 09/08: Blood pressure has been elevated, started on Coreg 3.125 mg twice daily. Continue monitor blood pressure trend and adjust medication as needed. Still having left lower extremity edema, venous Dopple r negative for DVT. continue gentle diuresis with Lasix 20 mg p.o. daily. Rec ommend Oralia wrap. Patient remains anemic, plan for EGD/colonoscopy today. Supportive care. Plan of care discussed with patient, family, RN and Dr. Parham . Gianni Parham 09/09/22 2223: Diagnosis, Assessment Plan Additional comments: Agree with above assessment and plan as document ed by nurse practitioner, continue current management, will follow. Electronically Signed by Rohit Benitez NP on 0 09/08/22 at 1805 at 2224 RPT #:[id number] END OF REPORT 2022-09-08 12:04:00-00:00 HCACL [facility] ([facility]) Pharmacy Prog.Note-Vancomycin REPORT#:[id number] REPORT STATUS: Signed DATE:09/08/22 TIME: 1204 PATIENT: KARMA ROWLAND UNIT #: [id number] ROOM/BED: [place] [address] : 63 AGE: 56 SEX: M ATTEND: Fredy Vences MD ADM AUTHOR: Elizabeth Collado [facility] * ALL edits or amendments must be made on the el [employer]/computer document * Vancomycin Vancomycin Medication Therapy Goal: AUC 400-600 mg*hr/L Indication for treatment: OM and MRSA Bacteremia Current therapy: vancomycin 750mg IV Q24h on 09/07 cefepime 1gm IV Q6h Day of therapy: 8 Weight: Actual weight (kg): 75 Labs: Laboratory Tests: 09/08 09/07 09/06 1045 0510 1553 Toxicology Vancomycin Trough (10.0 - 20.0 mcg/mL) 18.9 Random Vancomycin (mcg/mL) 15.8 14.7 Laboratory Test : 09/08 09/07 09/06 0615 0510 0538 Chemistry BUN (7 - 18 mg/dL) 22 H Creatinine (0.6 - 1.3 mg/dL) 1.4 H 1.4 H 1.4 H Hematology WBC (4.5 - 11.0 x10 3/uL) 9.1 Drug admin history: Lab Lab Level SCr Info Surgical Rn Med Dose Inter action/Dialysis Date/Time Date/Time Notes: Treatment plan: consult, change regimen Regimen: Mr Karma Rowland is a 56y r old male with history of diabetes mellitus type 2, hypertension who was admitted with altered menta l status and right-sided foot infection. According to him, he noticed a bliste r on his right foot around 3 days prior to presentation o n 08/18. His foot got progressively more swollen and erythema extended proximally to his lateral foot and ankle. CT abdomen and pelvis with contrast is concerning for possible prostate abscess. CT of lower extremity without contrast s hows extensive soft tissue edema with mottled gas in the subcutaneous and intramu scular compartments of the foot, compatible with gas -forming infection. Patient's blood cultures hav e come back positive for MRSA in 2 out of 2 sets. PT has had persistent (+)Ve cx for MRSA 08/18- 08/22. He underwent a debridement of h is foot on 08/19 and cx grew MRSA. PT was started on Vancomycin and clindamycin on 08/18. His MRI show ed a prostate abscess. 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 Patient is s/p ICU stay with merrem/ daptomycin. ID adjusting regimen to cefe pime/vancomycin. Pharmacy consulted to dose vancomycin. Consulting provider: Dr. Wolff Indication: OM and MRSA Bacteremia Goal: AUC 400-600 mcg*hr/ml A/P 09/08: * Pt transferred from [facility] to [facility] 08/23 0 * Tmax: 98.8 F, WBC 9.1 WNL * Renal: Cr: 1.4 (unchaged x past 3 days ), estCrCl 52mL/min, urine output: 600 mL/24 hrs documented * Micro: 08/26 prostate abscess: C farmeri , MRSA, E raffinosus. 08/18, 08/19, 08/21 , 08/22, 08/25 blood MRSRA. 08/28 blood - NGTD, MRSA screen neg * Imagin/30 MRI - OM of talus, caeianeus and navicular bone; JIMENA - negative for endocarditis * Regimen: End date 09/24 per ID. Pt was on vanc to 08/24. Regimen then adjusted to daptomycin and teflaro on 08/25. Vanc restarted on 09/01 with vancomycin 1 g IV q24h. * Monitoring: Vanc peak on at 1830 = 27.7 mcg/ml, Trough: 12.8. Theapeutic (AUC = 462) t1/2: 24 hrs. Repeat trough 09/07 was 18.9 mcg/ml, supratherapeutic. Patient was changed to dose pe r level on 09/06. Today random level was 15.8mcg/mL @10:45 09/08, therapeutic; h owever with surrogate trough 12.8mcg/mL will now try to p ut pt on a scheduled regimen of vancomycin 500mg IV Q24h as scr unchanged over the last 3 da ys and will reorder vanc trough before the 3rd dose * Pharmacy will monitor and adjust vanc dose to goal at 1217 RPT #:[id number] END OF REPORT 2022-09-08 10:47:00-00:00 [id number] [address] PATIENT NAME: KARMA ROWLAND ADMIT DATE: 09/02 ACCOUNT NO: [id number] [place] [facility] AGE: 56 REPORT TYPE: ENDOSCOPY REPORT SEX: M ADMITTING PHYSICIAN:Mj Vences MD ATTENDING PHYSICIAN:Mj Vences MD Gastroenterology Patient Name: Karma Rowland Procedure Date: 10:47 AM Date of : 1965 Procedure: Upper GI endoscopy Indications: Iron deficiency anemia secondary to chronic blood loss Providers: Kassie Avitia MD Referring MD: Mj Vences, Requesting Provider: Medicines: Monitored Anesthesia Care Procedure: Pre-Anesthesia Assessment: - Prior to the procedure, a History and Physica l was performed, and patient medications, allergies a nd sensitivities were reviewed. The patient's tole saji of previous anesthesia was reviewed. - The risks and benefits of the procedure and t he sedation options and risks were discussed with the patient. All questions were answered and inform ed consent was obtained. - Patient identification and proposed procedure were verified prior to the procedure by the physicia n, the nurse, the railroad surveyor and the machine packaging technician. The procedure was verified in the procedure room. - Pre-procedure physical examination revealed n o contraindications to sedation. - ASA Grade Assessment: III - A patient with se joão systemic disease. - After reviewing the risks and benefits, the p atient was deemed in satisfactory condition to undergo the procedure. - Monitored anesthesia care under the supervisi on of a WELDING INSPECTOR was determined to be medically necessary f or this procedure based on review of the patient's med ical history, medications, and prior anesthesia hist ory. After obtaining informed consent, the endoscope was passed under direct vision. Throughout the proc edure, the patient's blood pressure, pulse, and oxygen saturations were monitored continuously. The En doscope was introduced through the mouth, and advanced to the second part of duodenum. The upper GI endoscopy was PATIENT NAME: KARMA ROWLAND [id number] accomplished without difficulty. The patient to lerated the procedure well. Findings: The examined esophagus was normal. Diffuse mildly erythematous mucosa without blee ding was found in the gastric antrum. The examined duodenum was normal. Complications: No immediate complications. Estimated Blood Loss: Estimated blood loss: none. Impression: - Normal esophagus. - Erythematous mucosa in the antrum. - Normal examined duodenum. - No specimens collected. Recommendation: - Return patient to [facility] for ongoing care. - Resume previous diet. - Continue present medications. 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 All rights reserved. The codes documented in this report are prelimin shea and upon senior contracts administrator review may be revised to meet current compliance requiremen ts. Kassie Avitia MD 09/08/2022 1:02:49 PM Number of Addenda: 0 Note Initiated On: 09/08/2022 10:47 AM Provation {[id number]}.pdf ProVation FT PDF at 1303 PATIENT NAME: KARMA ROWLAND [id number] 10:07:00-00:00 [id number] [address] PATIENT NAME: KARMA ROWLAND ADMIT DATE: 09/02 ACCOUNT NO: [id number] [place] [facility] AGE: 56 REPORT TYPE: eELECTROCARDIOGRAM REPORT SEX: M ADMITTING PHYSICIAN:Mj Vences MD ATTENDING PHYSICIAN:Mj Vences MD Order: [id number] Test Reason : PREOP EVAL Test Date/Time Stamp: ThuSep 08 2022 10:07:52 Blood Pressure : / mmHG Vent. Rate : 087 BPM Atrial Rate : 087 BPM P-R Int : 160 ms QRS Dur : 084 ms QT Int : 362 ms P-R-T Axes : 039 007 016 degree s QTc Int : 435 ms Sinus rhythm with fusion complexes Otherwise normal ECG When compared with ECG of 18-AUG-2022 01:43, Significant changes have occurred Confirmed by PRASAD ZEPEDA, GIANNI ([id number]) on 08/24 5:46:20 PM Referred By: Mj Vences Confirmed by:PERCY PARHAM MD at 1746 PATIENT NAME: KARMA ROWLAND [id number] 09:57:00-00:00 [facility] ([facility]) Rehab Progress Note REPORT#:[id number] REPORT STATUS: Signed DATE:09/08/22 TIME: 956 PATIENT: KARMA ROWLAND UNIT #: [id number] ROOM/BED: [place] [address] : 61 AGE: 56 SEX: M ATTEND: Fredy Vences MD ADM AUTHOR: Mj Vences MD * ALL edits or amendments must be made on the el [employer]/computer document * Subjective Chief complaint: Rehabilitation follow-up To go down for endoscopy Doing better + BM Eating Denies MCBRIDE/N/V/D/CP 14 systems reviewed and neg. except that above. History of present illness: 56 yo HAM with long h/o DM, and HTN who was admitted for fever, flulike symptoms and altered mental status on 08/18. He was doing well until about 3 days prior to admission when he noted blister to have formed o n the dorsum of his foot. His foot started progressively getting more swollen and the blisters started enlarging and extending to his lateral f oot and ankle. He started feeling weak and nauseated. He was noted to have altered mentation and was brought to our ER. He was noted to be in DKA with Blood sugars grea ter than 600. He was seen by podiatry and surgery for BLE wounds and infectio n. He was treated in ICU for sepsis and DKA. He underwent incisional and excisional debridement of right foot and right ankle by podiatry. Patient also found to have prostate abscess underwent transrectal ultrasound aspiration of a bscess and transurethral resection of prostate and unroofing of abscess b y urology Dr. Bass. Endocrinology treated the DKA and blood sugars m uch improved. Patient's right foot was not salvageable and patient und erwent right BKA by Dr. LEROY on 08/28. Patient blood cultures showe d MRSA. Patient continued on antibiotics as per ID. MRI of the pelvis and foot completed. Patient r equired multiple PRBCs for anemia. Patient was found to have a possible small hematoma of the left calf on ultrasound. He complains of pain and swelling of the left ankle. Patient hemodynamically stable and plans are to be transferred to stepdown unit. He is on heparin subcu for VTE. Af ter surgery he is now being mobilized by PT and OT. He is wearing a [employer] orthotic for right knee /BKA protection. Prior to admission the patient was independent living in a single-story house with his spouse with a few steps up to front and back doo r. 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 is at bedside. Patient denies nausea, vomiting, fever, chills, chest pain, shortness of breath with diz ziness. He is requiring IV Dilaudid for pain control. Mental status back to baseline. Pt is progressing slowly with therapy d/t weakness and pain, self care deficit, decreased endurance and balance, and decreased functional mobility. Pt requiring acute inpt rehab for multidiscipli nary team of nursing, therapy, and physicians. Pt is willing and able to partici- kathleen in 3 hr/day inpt rehab to d/c home safely. Pt' s prior level of function was independent. Objective General VS: Vital Signs: Date Time Temp Pulse Resp B/P B/P Pulse O2 O2 F low FiO2 Mean Ox Delivery Rate 09/08 0711 98.1 92 20 151/78 102.1 09/07 2358 91 160/78 105 09/07 2335 98.8 91 14 163/82 108.9 95 09/07 2215 98 158/88 111 09/07 2000 97.3 87 17 175/88 116.8 97 09/07 1556 97.5 93 15 177/90 118.8 98 09/07 1129 98.1 87 15 155/74 100.6 96 PATIENT WEIGHT: Weight (lb): 165 Weight (oz): 5.55 Weight (kg): 75.000 Medications: Active Meds + DC'd Last 24 Hrs Fentanyl Citrate (SUBLIMAZE) 100 MCG PACU Q10MIN PRN PRN IV Fentanyl Citrate (SUBLIMAZE) 50 MCG PACU Q10MIN PRN PRN IV Hydralazine HCl (APRESOLINE) 2 MG PACU Q10MIN NV N PRN IV Insulin Human Lispro (HUMALOG) 0 PACU ONCE PRN S UBQ Labetalol HCl (LABETALOL HCL) 5 MG PACU Q10MIN P RN PRN IV Ondansetron HCl (ZOFRAN) 4 MG PACU ONCE PRN IV Carvedilol (COREG) 3.125 MG C BK DIN PO Polyethylene Glycol/Electrolytes (GOLYTELY) 2,00 0 ML ONCE ONE PO (DC) Insulin Glargine (Lantus/Semglee) 5 UNIT BEDTIME SUBQ Polyethylene Glycol/Electrolytes (GOLYTELY) 2,00 0 ML ONCE ONE PO (DC) Vancomycin HCl (VANCOMYCIN HCL) 750 MG ONCE ONE IV (DC) Sodium Chloride (SODIUM CHLORIDE 0.9%) 250 ML Insulin Glargine (Lantus/Semglee) 7 UNIT BEDTIME SUBQ (DC) Furosemide (LASIX 20MG INJ) 20 MG BLOOD-DOSE BET WEEN IV (CKD) Sodium Chloride (SODIUM CHLORIDE) 10 ML ASDIR IV Furosemide (LASIX) 20 MG DAILY PO Pantoprazole Sodium (PROTONIX) 40 MG Q12HR IV Polyethylene Glycol (MIRALAX) 17 GM DAILY PO Sennosides (Senna Lax 8.6 MG TABLET) 8.6 MG MADALYN Y PO Sodium Chloride (SODIUM CHLORIDE) 10 ML ASDIR NV N IV Amitriptyline HCl (ELAVIL) 25 MG BEDTIME PO Mupirocin (BACTROBAN 2% 22 GM OINTMENT) 1 APPLIC BID NASAL Zinc Oxide (ZINC OXIDE 30 GM OINTMENT) 1 APPLIC DAILY TOPICAL Sterile Water (WATER FOR IRRIGATION) DRESSING CH GELACIO ASDIR PRN IRR Insulin Human Lispro (HUMALOG) 0 AC HS SUBQ Dextrose/Water (DEXTROSE 10% IN WATER) 125 ML DIR PRN IV (CKD) Dextrose/Water (DEXTROSE 10% IN WATER) 250 ML DIR PRN IV (CKD) Glucagon (GLUCAGON) 1 MG ASDIR PRN IM Hydrocodone Bitart/Acetaminophen (NORCO 10/325) 1 TAB Q4H PRN PRN PO Hydromorphone HCl (DILAUDID) 1 MG Q6H PRN PRN IV Lidocaine (LIDODERM) 1 PATCH DAILY TOPICAL Insulin Human Lispro (HUMALOG) 5 UNIT AC SUBQ Miscellaneous Information (VANCOMYCIN PHARMACY T O DOSE) 1 EACH ASDIR IV (CKD) Heparin Sodium (HEPARIN 5000 UNITS/ML) 5,000 UNI T Q8HR SUBQ (DA) Cefepime HCl (MAXIPIME) 1 GM Q6H IV Sodium Chloride (SODIUM CHLORIDE) 10 ML Acetaminophen (TYLENOL) 650 MG Q6H PRN PRN PO Bisacodyl (DULCOLAX) 10 MG DAILY PRN PRN RECTAL Docusate Sodium (COLACE) 100 MG Q12H PRN PRN PO Hydralazine HCl (APRESOLINE) 10 MG Q6H PRN PRN I V Ondansetron HCl (ZOFRAN) 4 MG Q6H PRN PRN IV Physical Exam General appearance: alert, awake, no acute distr ess Psych: alert, normal affect, oriented x 3 HEENT: anicteric, sclera clear Neck: supple, no JVD Cardiovascular: S1/S2, no murmur Respiratory: aerating well, clear bilaterally Abdomen: bowel sounds present, non-distended, so ft, non-tender Skin: no rash, R BKA wrapped healing. 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 X 3, CNII-XII intact Results Findings/Data: Laboratory Tests: 09/08 09/08 09/07 09/07 09/07 0616 0615 2238 2110 1554 Chemistry Sodium (134 - 147 mEq/L) 135 Potassium (3.4 - 5.0 mEq/L) 4.6 Chloride (100 - 108 mEq/L) 107 Carbon Dioxide (21 - 33 mEq/l) 22 Anion Gap (0 - 20) 10 BUN (7 - 18 mg/dL) 22 H Creatinine (0.6 - 1.3 mg/dL) 1.4 H Glomerular Filtr Rate (90 - 95) 58.3 L Glucose (70 - 110 mg/dL) 100 POC Glucose (70 - 110 MG/DL) 101 135 H 127 H 11 2 H Calcium (8.0 - 10.5 mg/dL) 8.1 Magnesium (1.80 - 2.40 mg/dL) 1.58 L Total Creatine Kinase (46 - 171 Units/L) 22 L Albumin (3.4 - 5.0 g/dL) 1.30 L Prealbumin (16.0 - 40.0 mg/dL) < 5.0 L Hematology WBC (4.5 - 11.0 x10 3/uL) 9.1 RBC (4.00 - 5.60 x10 6/uL) 3.05 L Hgb (12.5 - 16.9 g/dL) 8.5 L Hct (37.5 - 50.7 %) 26.2 L MCV (81.0 - 99.0 fL) 85.9 MCH (27.0 - 33.0 pg) 27.9 MCHC (33.0 - 37.0 g/dL) 32.4 L RDW (11.5 - 14.5 %) 13.5 Plt Count (150 - 400 x10 3/uL) 231 MPV (7.0 - 9.0 fL) 9.6 H Neut % (Auto) (56.0 - 77.0 %) 73.3 Lymph % (Auto) (14.0 - 32.0 %) 13.7 L Boundary % (Auto) (4.8 - 9.0 %) 7.2 Eos % (Auto) (0.3 - 3.7 %) 4.8 H Baso % (Auto) (0.0 - 2.0 %) 0.3 Neut # (Auto) (2.0 - 7.6 x10 3/uL) 6.64 Lymph # (Auto) (1.0 - 3.8 x10 3/uL) 1.24 Boundary # (Auto) (0.1 - 0.8 x10 3/uL) 0.65 Eos # (Auto) (0.0 - 0.2 x10 3/uL) 0.43 H Baso # (Auto) (0.0 - 0.2 x10 3/uL) 0.03 Abs Immat Gran (auto) (0.00 - 0.03 0.06 H x10 3/uL) Add Manual Diff NO Immature Gran % (0.0 - 2.0 %) 0.7 Nucleated RBC % (0 - 0 %) 0.0 Nucleated RBCs # (Man) (0.0 - 0.1 0.00 x10 3/uL) 09/07 09/07 1137 1127 Chemistry POC Glucose (70 - 110 MG/DL) 51 L 42 L Radiology data: Recent Impressions: RADIOLOGY - XR ABDOMEN 1V (KUB) 09/04 1648 Report Impression - Status: SIGNED Entered: 09/04/2022 1757 IMPRESSION: Benign appearance of the abdomen. Impression By: [email or web address] - Hakeem Soto ULTRASOUND - [facility]/L[facility] 09/05 1146 Report Impression - Status: SIGNED Entered: 09/05/2022 1333 IMPRESSION: 1. No evidence of deep vein thrombosis. 2. Complex heterogeneous hypoechoic fluid collec tion in the left calf region measuring 8.4 x 2.8 x 2.5 cm; there is no internal vascularity or peripheral hyperemia. May represe nt a hematoma. Impression By: [email or web address] - Mert Ga M.D. RADIOLOGY - XR CHEST 1 V 09/05 1432 Report Impression - Status: SIGNED Entered: 09/05/2022 1515 IMPRESSION: Minimal bibasilar pulmonary opacities Impression By: Yared - Hakeem Perez Diagnosis, Assessment Plan Problem List/A P: 1. Gangrene of right foot 2. 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 MRSA bacteremia 4. Cellulitis of foot, right 5. DKA (diabetic ketoacidosis) 6. Hyperglycemia 7. ERIKA (acute kidney injury) 8. Postoperative pain 9. Acute anemia 10. Prostate abscess 11. 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 Leroy Significant impairment in self-care, ADLs and fu nctional mobility Impaired mobility and gait Acute postoperative pain right BKA Diabetic polyneuropathy DKA, DM 2, poorly controlled, A1c greater than 1 4 PAD MRSA bacteremia/sepsis-treated on acute ERIKA Severe hyponatremia-resolved HTN Acute on chronic anemia requiring multiple trans fusions, possible GI bleed Left calf hematoma Edema and clinical arthritis left ankle Early decubitus to left heel/DTI dorsal left mid foot Prostatic abscess 08/26: S/p transrectal ultrasound aspiration of ab scess and transurethral resection of prostate and unroofing of abscess Echo: EF 55-59%, grade 1 diastolic dysfunction 09/02: JIMENA negative for vegetation MRSA OF NARES 09/08:s/p EGD and colonoscopy. EGD showed mild ga stritis. Colonoscopy showed rectal polyp that was resected by snare. Plan: -PLOF: Independent with transfers and gait -Amputee rehab program -Continue PT and OT -15/12 rehabilitation nursing care. -Case management for safe discharge planning. -Decubitus prevention -Early decubitus to left heel/DTI dorsal left mi dfoot-zinc oxide to the foot, foam, offloading, podiatry managing -DVT prophylaxis-subcutaneous heparin -Strict fall and safety precautions -Work on bed mobility, transfer training, ADLs, pre-gait and gait exercises -Increase endurance and strength -Monitor pain with therapies -OOB to chair -Monitor p.o. intake and nut rition, albumin 1.3, prealbumin less than 5, dietary consultation, protein supplements to promote hea ling -Continue antibiotics per ID -Tight glycemia control- endocrine on board, ins ulin adjustments -Endocrinology, ID, podiatry, cardiology, IM con sulted -Pain management adjusting pain medications -Anemia, patient required multiple units of PRBC s on acute, FOBT positive -IV Protonix-consult GI-seri al H H-no evidence of gross bleeding-discussed with Dr. Trinidad -Constipation-abdominal uikozash-ZUX-gddmsi-CW S enokot and MiraLAX, DSP -Right AKS-cldkubj-gcqfsggu resolved, dr martinez changed ownvi-cigwwkj-qnnuugga NESTOR-TECH -MRSA OF NARES on Bactroban protocol -LLE edema-venous Doppler wi th complex heterogeneous hypoechoic fluid collection in the left calf region mitzi uring 8.4, 2.8, 2.5 cm suggestive of hematoma. Hold Lasix x3 days. Oralia wrap calf -Generalized edema-some shor tness of breath and abdominal distention-cardiology gave a dose of IV Lasix-monitor urine output, da jaz weights -Chest x-ray with minimal basilar pulmonary opac ities -Anemia-hemoglobin 8.5, transfused 2 units of NV BC on 09/05 -09/08: s/p EGD and colonoscopy. EGD showed mild gastritis. Colonoscopy showed rectal polyp that was resected by snare. Anemia likely secondary to chronic kidney disease. Consult renal. -Chemistries good, creatinine 1.4, magnesium 1.5 8 -Advance therapies as tolerated-discusse d treatment plan with patient and -Patient continues to perform well with therapies. Patient is highly motivated but requires rest breaks due to becoming easily fatigued. Patient working on sliding board and stand pivot transfers -Team conference Progress: Pt. PERFORMED SCOOTPIVOT TRANSFER TO WITH SBA FOR SAFETY. Pt. INSTRUCTED ON WC PUSH UPS FOR STRENGTHENING, 3x 5, UEs. Pt. INSTRUCTED ON SIT TO STAND AT // WITH MOD A TO MAX A. Pt. LEFT IN WC AT END OF Tx. AND EDUCATED ON IMPORTANCE OF STAYING OUT OF BED WHEN POSSIBLE. Pt. LEFT WITH ALL NEEDS IN REACH. Pt. PERFORMED SUPINE TO SIT IN BED WI TH IND, SLIDE BOARD TRANSFER TO WITH SBA. Pt. PROPELLED FOR 200 FT 3 TIMES FOR ENDURANCE TRAINING, WITH SBA . PM R Please see team note. Plan and goals discussed with the patient. I agree with the teams finding ELOS- [] DC- DME- Total time 33 minutes greate r than 50% of the time spent examining patient, left calf hematoma, anemia, EGD a nd colonoscopy, hold anticoagulants for a few days, amputee rehab plan of care, goals, thera pies, progress, labs, medications. EMR and MAR is reviewed. All questions answered Orders: Procedure Date/time Status PHYSICIAN CONSULT 09/08 1540 Active PREALBUMIN 09/08 0515 Complete CREATINE KINASE (CK) 09/08 0615 Complete ALBUMIN 09/08 614 Complete OT ADL 09/08 UNK Complete Consultants: cardiology, endocrinology, hospital ist, infectious disease, podiatry Rehab attestation: Face to face exam completed. Treatment plan disc ussed with patient. Meets continued stay criteria. Agree with interdiscipl inary treatment plan. at 1541 RPT #:[id number] END OF REPORT 2022-09-08 06:36:00-00:00 [facility] Hospitalist Progress Note REPORT#:[id number] REPORT STATUS: Signed DATE:09/08/22 TIME: 06 PATIENT: KARMA ROWLAND UNIT #: [id number] ROOM/BED: [place] [id number] : 63 AGE: 56 SEX: M ATTEND: Fredy Vences MD ADM AUTHOR: Wilbert Ramires MD * ALL edits or amendments must be made on the [employer]/computer document * Subjective Chief complaint: admitted to rehab. participating with therapy Review of Systems All systems rev neg: except as noted Objective General VS/I O: Vital Signs: Date Time Temp Pulse Resp B/P B/P Pulse O2 O2 F low FiO2 Mean Ox Delivery Rate 09/07 2358 91 160/78 105 09/07 2335 98.8 91 14 163/82 108.9 95 09/07 2215 98 158/88 111 09/07 2000 97.3 87 17 175/88 116.8 97 09/07 1556 97.5 93 15 177/90 118.8 98 09/07 1129 98.1 87 15 155/74 100.6 96 09/07 0654 97.9 89 15 148/74 98.6 96 24 hour I O ending at 0700: 09/08 0700 09/07 1900 Intake Total 2000 Output Total 300 Balance 1700 Intake, Oral 1999 Number 0 Incontinent Voids Number Voids 0 Output, Urine 300 PATIENT WEIGHT: Weight (lb): 165 Weight (oz): 5.55 Weight (kg): 75.000 Medications: Active Meds + DC'd Last 24 Hrs Polyethylene Glycol/Electrolytes (GOLYTELY) 2,00 0 ML ONCE ONE PO Insulin Glargine (Lantus/Semglee) 5 UNIT BEDTIME SUBQ Polyethylene Glycol/Electrolytes (GOLYTELY) 2,00 0 ML ONCE ONE PO (DC) Vancomycin HCl (VANCOMYCIN HCL) 750 MG ONCE ONE IV (DC) Sodium Chloride (SODIUM CHLORIDE 0.9%) 250 ML Insulin Glargine (Lantus/Semglee) 7 UNIT BEDTIME SUBQ (DC) Furosemide (LASIX 20MG INJ) 20 MG BLOOD-DOSE BET WEEN IV (CKD) Sodium Chloride (SODIUM CHLORIDE) 10 ML ASDIR IV Furosemide (LASIX) 20 MG DAILY PO Pantoprazole Sodium (PROTONIX) 40 MG Q12HR IV Polyethylene Glycol (MIRALAX) 17 GM DAILY PO Sennosides (Senna Lax 8.6 MG TABLET) 8.6 MG MADALYN Y PO Sodium Chloride (SODIUM CHLORIDE) 10 ML ASDIR NV N IV Amitriptyline HCl (ELAVIL) 25 MG BEDTIME PO Mupirocin (BACTROBAN 2% 22 GM OINTMENT) 1 APPLIC BID NASAL Zinc Oxide (ZINC OXIDE 30 GM OINTMENT) 1 APPLIC DAILY TOPICAL Sterile Water (WATER FOR IRRIGATION) DRESSING CH GELACIO ASDIR PRN IRR Insulin Human Lispro (HUMALOG) 0 AC HS SUBQ Dextrose/Water (DEXTROSE 10% IN WATER) 125 ML DIR PRN IV (CKD) Dextrose/Water (DEXTROSE 10% IN WATER) 250 ML DIR PRN IV (CKD) Glucagon (GLUCAGON) 1 MG ASDIR PRN IM Hydrocodone Bitart/Acetaminophen (NORCO 10/325) 1 TAB Q4H PRN PRN PO Hydromorphone HCl (DILAUDID) 1 MG Q6H PRN PRN IV Lidocaine (LIDODERM) 1 PATCH DAILY TOPICAL Insulin Human Lispro (HUMALOG) 5 UNIT AC SUBQ Miscellaneous Information (VANCOMYCIN PHARMACY T O DOSE) 1 EACH ASDIR IV (CKD) Heparin Sodium (HEPARIN 5000 UNITS/ML) 5,000 UNI T Q8HR SUBQ (DA) Cefepime HCl (MAXIPIME) 1 GM Q6H IV Sodium Chloride (SODIUM CHLORIDE) 10 ML Acetaminophen (TYLENOL) 650 MG Q6H PRN PRN PO Bisacodyl (DULCOLAX) 10 MG DAILY PRN PRN RECTAL Docusate Sodium (COLACE) 100 MG Q12H PRN PRN PO Hydralazine HCl (APRESOLINE) 10 MG Q6H PRN PRN I V Ondansetron HCl (ZOFRAN) 4 MG Q6H PRN PRN IV Physical Exam General appearance: alert, awake, oriented Head/Eyes: atraumatic, clear cornea Neck: full range of motion, non-tender Cardiovascular: normal capillary refill, normal heart sounds, regular rate rhythm Respiratory: aerating well, clear to auscultatio n Abdomen: non-tender, normal bowel sounds Genitourinary: no flank pain Extremities: moves all, normal capillary refill Musculoskeletal: normal inspection, painless ran ge of motion 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 X 3, 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 Considered stroke alert: no Skin: dry, intact Psychiatry: normal affect, normal judgment/insig ht Results Findings/Data: Laboratory Tests 09/08 09/07 09/07 09/07 09/07 0616 2238 2110 1554 1137 Chemistry POC Glucose (70 - 110 MG/DL) 101 135 H 127 H 11 2 H 51 L 09/07 1127 Chemistry POC Glucose (70 - 110 MG/DL) 42 L Diagnosis, Assessment Plan Consultants: cardiology, endocrinology, hospital ist, infectious disease, podiatry Free Text DxA P Notes Free text DxA P notes: Gangrene of right foot s/p Below- knee amputatio n Prostate abscess MRSA bacteremia Hx of Diabetes, Diabetic neuropathy HTN PLANS: Continue with ABx as dierected- currently on Dap tomycin and Cefepime Continue with PT/OT per primary Fall precautions Nutritional support pain control fall precautions bowel regimen Wound care as directed Hepain PPX Continue with supportive / care follow hgb closely and transfuse as needed blood sugars dipping down - endo following BP trending up, add BP meds and follow Electronically Signed by Wilbert Ramires MD on at 0559 [facility] #:[id number] END OF REPORT 2022-09-08 06:22:00-00:00 [facility] ([facility]) Pain Management Progress Note REPORT#:[id number] REPORT STATUS: Signed DATE:09/08/22 TIME: 621 PATIENT: KARMA ROWLAND UNIT #: [id number] ROOM/BED: [place] [address] : 63 AGE: 56 SEX: M ATTEND: Fredy Vences MD ADM AUTHOR: Charlie Quiroga CLAY MILLER * ALL edits or amendments must be made on the [employer] document * Charlie Quiroga 09/08/22621: Subjective Chief complaint: Patient seen and examined. Chart/MAR reviewed. Patient slept well last night. Had adequate pain coverage at todays visit and yesterday. No side effects noted with the pain m edications. Pending an EGD today. Will reduce IV pain medication some. Patient being seen for Acute postoperative pain, right foot and ankle gangrene, requiring BKA, Constipation Patient is still requiring medications to help w ith managing current problems. Patient is requiring IV narcotics to help manage breakthrough pain No fever/chills, chest pain, orthopnea, nausea/v omiting, pruritus, or hallucinations. 14 point ROS undertaken unremarkable except as n oted Objective General VS/I O: Vital Signs Date Temp Pulse Resp B/P B/P Mean Pulse Ox FiO2 09/07 97.3-98.8 87-98 148-177/74-90 98.6- 118.8 95-98 Last Documented: Result Date Time B/P 160/78 09/07 2357 B/P Mean 105 09/07 2358 Pulse 91 09/07 2358 Pulse Ox 95 09/07 233 Temp 98.8 09/07 2335 Resp 14 09/07 2335 O2 Delivery Room air 09/06 1545 24 hour I O ending at 0700: 09/08 0700 09/07 1900 Intake Total 2000 Output Total 300 Balance 1700 Intake, Oral 2000 Number 0 Incontinent Voids Number Voids 0 Output, Urine 300 PATIENT WEIGHT: Weight (lb): 165 Weight (oz): 5.55 Weight (kg): 75.000 Medications: Active Meds + DC'd Last 24 Hrs Polyethylene Glycol/Electrolytes (GOLYTELY) 2,00 0 ML ONCE ONE PO Insulin Glargine (Lantus/Semglee) 5 UNIT BEDTIME SUBQ Polyethylene Glycol/Electrolytes (GOLYTELY) 2,00 0 ML ONCE ONE PO (DC) Vancomycin HCl (VANCOMYCIN HCL) 750 MG ONCE ONE IV (DC) Sodium Chloride (SODIUM CHLORIDE 0.9%) 250 ML Insulin Glargine (Lantus/Semglee) 7 UNIT BEDTIME SUBQ (DC) Furosemide (LASIX 20MG INJ) 20 MG BLOOD-DOSE BE TWEEN IV (CKD) Sodium Chloride (SODIUM CHLORIDE) 10 ML ASDIR IV Furosemide (LASIX) 20 MG DAILY PO Pantoprazole Sodium (PROTONIX) 40 MG Q12HR IV Polyethylene Glycol (MIRALAX) 17 GM DAILY PO Sennosides (Senna Lax 8.6 MG TABLET) 8.6 MG MADALYN Y PO Sodium Chloride (SODIUM CHLORIDE) 10 ML ASDIR NV N IV Amitriptyline HCl (ELAVIL) 25 MG BEDTIME PO Mupirocin (BACTROBAN 2% 22 GM OINTMENT) 1 APPLIC BID NASAL Zinc Oxide (ZINC OXIDE 30 GM OINTMENT) 1 APPLIC DAILY TOPICAL Sterile Water (WATER FOR IRRIGATION) DRESSING CH GELACIO ASDIR PRN IRR Insulin Human Lispro (HUMALOG) 0 AC HS SUBQ Dextrose/Water (DEXTROSE 10% IN WATER) 125 ML DIR PRN IV (CKD) Dextrose/Water (DEXTROSE 10% IN WATER) 250 ML DIR PRN IV (CKD) Glucagon (GLUCAGON) 1 MG ASDIR PRN IM Hydrocodone Bitart/Acetaminophen (NORCO 10/325) 1 TAB Q4H PRN PRN PO Hydromorphone HCl (DILAUDID) 1 MG Q6H PRN PRN IV Lidocaine (LIDODERM) 1 PATCH DAILY TOPICAL Insulin Human Lispro (HUMALOG) 5 UNIT AC SUBQ Miscellaneous Information (VANCOMYCIN PHARMACY T O DOSE) 1 EACH ASDIR IV (CKD) Heparin Sodium (HEPARIN 5000 UNITS/ML) 5,000 UNI T Q8HR SUBQ (DA) Cefepime HCl (MAXIPIME) 1 GM Q6H IV Sodium Chloride (SODIUM CHLORIDE) 10 ML Acetaminophen (TYLENOL) 650 MG Q6H PRN PRN PO Bisacodyl (DULCOLAX) 10 MG DAILY PRN PRN RECTAL Docusate Sodium (COLACE) 100 MG Q12H PRN PRN PO Hydralazine HCl (APRESOLINE) 10 MG Q6H PRN PRN I V Ondansetron HCl (ZOFRAN) 4 MG Q6H PRN PRN IV Physical Exam General appearance: alert, awake, oriented, no r espiratory distress Head/eyes: atraumatic, EOMI, normocephalic, norm al conjunctiva/sclera, PERRLA ENT: normal ear left, normal ear right, normal n ose, normal pharynx, moist mucosal membranes Neck: full range of motion, no lymphadenopathy, supple/no meningismus Cardiovascular: regular rate rhythm Respiratory: clear to auscultation, no distress, aerating well Abdomen: soft, non-tender, no distention , active bowel sounds in all quarants. 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, no sensory deficit s, CNII-XII grossly intact Considered stroke alert: no Skin: dry Psychiatry: normal affect Results Findings/data: Laboratory Tests: 09/07 09/07 09/07 09/07 09/07 2238 2110 1554 1137 1127 Chemistry POC Glucose (70 - 110 MG/DL) 135 H 127 H 112 H 51 L 42 L Diagnosis, Assessment Plan Free text A P: A/P: Patient is a 56 year old male who presents with: Recent prostate abscess -Status post TURP with unroofing of abscess -IV antibiotics with vancomycin until 09-24-2022 Acute postoperative pain, right foot and ankle g angrene, requiring BKA -Patient is at risk for further amputations or l oss of limb due to comorbid conditions -Status post right BKA 08/28/2022 -Tylenol 650 mg p.o. every 6 hours as needed ofelia n scale 1 3 -Check 10/325 1 tablet p.o. every 4 hours as nee ded pain scale 4 10 -reduce Dilaudid 0.5 mg IV e very 6 hours as needed pain scale 7 10, second line therapy-patient will require close monit oring while using IV narcotics for any deleterious effect -Lidoderm patch to left ankle daily -IV antibiotics with vancomycin until 09-24-2022 -Local wound care -manageable Diabetic peripheral neuropathy -patient is based on adrenal insufficiency -amitriptyline 25mg PO QHS -manageable Uncontrolled diabetes, diabetes with complicatio ns, recent DKA -Hemoglobin A1c 13.4 -Recent right foot and ankle gangrene -Insulin sliding scale, FSBS, good glycemic cont rol Hypertension -We will monitor hypertension and tachycardia du e to pain, and hypotension as well as bradycardia secondary over sedation with narcotics -Hydralazine as needed Elevated LFTs -08/20/22-AST 51, ALT 22 -09/03/2022-AST 15, ALT 7 -Patient will require close monitoring since he is using narcotics with Tylenol Impaired functional mobility, balance, gait, and endurance -PT/OT Constipation -We will monitor while utilizing opioid narcotic medications. -Adequate fluid intake also discussed. -Colace 100 mg p.o. twice daily as needed -Dulcolax 10 mg rectally daily as needed -Senna lax 8.6mg daily -Miralax 17gm daily -manageable Disposition: Past Medical History: Prostate abscess, right fo ot foot and ankle gangrene, diabetes, hypertension, hyperlipidemia Past Surgical History: TURP, right BKA Family History: Noncontributory Social History: Denies tobacco, alcohol, or drug use Allergies: NKDA Patient has failed conservative medical therapy. Patient will require monitoring while utilize na rcotic medications for any adverse effects, and will adjust as needed Plan of care discussed with patient and nurse All diagnostics of last 24 hours been reviewed. Risks versus benefits of opioid medications were reviewed to include, but not limited to respiratory depression, accid ental overdose, altered mental status, sudden , constipation which could result in bowel obstruction, seizures, withdrawal, dependency addiction, risk for falls . Case discussed with Dr Ng whom agrees. Thank you for the consultation. [place] [facility] NURSE: -database searched, no information found HernandezPomadelin 09/26/22 1257: Attestations Physician Attestation Agree w/findings plan: The patient was seen and exa mined by Charlie Quiroga. I personally developed the care plan, which was continued by the mid-level provider. I was immediately available. at 1440 Electronically Signed by Kingsley Ng MD on 3 at 1259 [facility] #:[id number] END OF REPORT 2022-09-07 19:10:00-00:[address] [facility] ([facility]) Pain Management Progress Note REPORT#:[id number] REPORT STATUS: Signed DATE:09/07/22 TIME: 1909 PATIENT: KARMA ROWLAND UNIT #: [id number] ROOM/BED: [place] [address] : 63 AGE: 56 SEX: M ATTEND: Fredy Vences MD ADM AUTHOR: Ben Klein * ALL edits or amendments must be made on the [employer]/computer document * Ben Klein 09/07/221909: Subjective Chief complaint: Patient seen and examined. Chart/MAR reviewed. Patient resting comfortably. No acute concerns. Pain control is good today. BKA discomfort is manageable with alternating or al and IV narcotics. No bothersome neuropathy symptoms, and he is sleeping better. Patient being seen for Acute postoperative pain, right foot and ankle gangrene, requiring BKA, Constipation Patient is still requiring medications to help w ith managing current problems. Patient is requiring IV narcotics to help manage breakthrough pain No fever/chills, chest pain, orthopnea, nausea/v omiting, pruritus, or hallucinations. 14 point ROS undertaken unremarkable except as n oted Objective General VS/I O: Vital Signs Date Temp Pulse Resp B/P B/P Mean Pulse Ox FiO 2 09/06-09/07 36.4-36.7 87-93 15-18 148-177/74-90 0.0-118.8 95-98 Last Documented: Result Date Time Pulse Ox 98 09/07 1556 B/P 177/90 09/07 1556 B/P Mean 118.8 09/07 1556 Temp 36.4 09/07 1556 Pulse 93 09/07 1556 Resp 15 09/07 1556 O2 Delivery Room air 09/06 1545 24 hour I O ending at 0700: 09/07 0700 09/06 1900 Intake Total Output Total 1500 1000 Balance -1500 -1000 Number 0 0 Incontinent Voids Number Voids 0 0 Output, Urine 1500 1000 PATIENT WEIGHT: Weight (lb): 165 Weight (oz): 5.55 Weight (kg): 75.000 Medications: Active Meds + DC'd Last 24 Hrs Polyethylene Glycol/Electrolytes (GOLYTELY) 2,00 0 ML ONCE ONE PO Insulin Glargine (Lantus/Semglee) 5 UNIT BEDTIME SUBQ Polyethylene Glycol/Electrolytes (GOLYTELY) 2,00 0 ML ONCE ONE PO (DC) Vancomycin HCl (VANCOMYCIN HCL) 750 MG ONCE ONE IV (DC) Sodium Chloride (SODIUM CHLORIDE 0.9%) 250 ML Insulin Glargine (Lantus/Semglee) 7 UNIT BEDTIME SUBQ (DC) Furosemide (LASIX 20MG INJ) 20 MG BLOOD-DOSE BET WEEN IV (CKD) Sodium Chloride (SODIUM CHLORIDE) 10 ML ASDIR IV Furosemide (LASIX) 20 MG DAILY PO Pantoprazole Sodium (PROTONIX) 40 MG Q12HR IV Polyethylene Glycol (MIRALAX) 17 GM DAILY PO Sennosides (Senna Lax 8.6 MG TABLET) 8.6 MG MADALYN Y PO Sodium Chloride (SODIUM CHLORIDE) 10 ML ASDIR NV N IV Amitriptyline HCl (ELAVIL) 25 MG BEDTIME PO Mupirocin (BACTROBAN 2% 22 GM OINTMENT) 1 APPLIC BID NASAL Zinc Oxide (ZINC OXIDE 30 GM OINTMENT) 1 APPLIC DAILY TOPICAL Sterile Water (WATER FOR IRRIGATION) DRESSING CH GELACIO ASDIR PRN IRR Insulin Human Lispro (HUMALOG) 0 AC HS SUBQ Dextrose/Water (DEXTROSE 10% IN WATER) 125 ML DIR PRN IV (CKD) Dextrose/Water (DEXTROSE 10% IN WATER) 250 ML DIR PRN IV (CKD) Glucagon (GLUCAGON) 1 MG ASDIR PRN IM Hydrocodone Bitart/Acetaminophen (NORCO 10/325) 1 TAB Q4H PRN PRN PO Hydromorphone HCl (DILAUDID) 1 MG Q6H PRN PRN IV Lidocaine (LIDODERM) 1 PATCH DAILY TOPICAL Insulin Human Lispro (HUMALOG) 5 UNIT AC SUBQ Miscellaneous Information (VANCOMYCIN PHARMACY T O DOSE) 1 EACH ASDIR IV (CKD) Heparin Sodium (HEPARIN 5000 UNITS/ML) 5,000 UNI T Q8HR SUBQ (DA) Cefepime HCl (MAXIPIME) 1 GM Q6H IV Sodium Chloride (SODIUM CHLORIDE) 10 ML Acetaminophen (TYLENOL) 650 MG Q6H PRN PRN PO Bisacodyl (DULCOLAX) 10 MG DAILY PRN PRN RECTAL Docusate Sodium (COLACE) 100 MG Q12H PRN PRN PO Hydralazine HCl (APRESOLINE) 10 MG Q6H PRN PRN I V Ondansetron HCl (ZOFRAN) 4 MG Q6H PRN PRN IV Physical Exam General appearance: alert, awake, oriented, no a cute distress Head/eyes: atraumatic, EOMI, normocephalic, norm al conjunctiva/sclera, PERRLA ENT: normal ear left, normal ear right, normal n ose, normal pharynx, moist mucosal membranes Neck: full range of motion, no lymphadenopathy, supple/no meningismus Cardiovascular: regular rate rhythm Respiratory: clear to auscultation, no distress, aerating well Abdomen: soft, non-tender, no distention , active bowel sounds in all quarants. 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, no sensory deficit s, CNII-XII grossly intact Considered stroke alert: no Skin: dry, intact, no rash Psychiatry: normal affect Results Findings/data: Laboratory Tests: 09/07 09/07 09/07 09/07 09/07 1554 1137 1127 0618 0510 Chemistry Creatinine (0.6 - 1.3 mg/dL) 1.4 H POC Glucose (70 - 110 MG/DL) 112 H 51 L 42 L 13 5 H Hematology Hgb (12.5 - 16.9 g/dL) 8.4 L Hct (37.5 - 50.7 %) 26.2 L Toxicology Random Vancomycin (mcg/mL) 14.7 09/06 09/06 2226 2108 Chemistry POC Glucose (70 - 110 MG/DL) 192 H 211 H Diagnosis, Assessment Plan Free text A P: A/P: Patient is a 56 year old male who presents with: Past Medical History: Prostate abscess, right fo ot foot and ankle gangrene, diabetes, hypertension, hyperlipidemia Past Surgical History: TURP, right BKA Family History: Noncontributory Social History: Denies tobacco, alcohol, or drug use Allergies: NKDA Recent prostate abscess -Status post TURP with unroofing of abscess -IV antibiotics with vancomycin until 09-24-2022 Acute postoperative pain, right foot and ankle g angrene, requiring BKA -Patient is at risk for further amputations or l oss of limb due to comorbid conditions -Status post right BKA 08/28/2022 -Tylenol 650 mg p.o. every 6 hours as needed ofelia n scale 1 3 -Check 10/325 1 tablet p.o. every 4 hours as nee ded pain scale 4 10 -Dilaudid 1 mg IV every 6 ho urs as needed pain scale 7 10, second line therapy- patient will require close monitoring while usin g IV narcotics for any deleterious effect -Lidoderm patch to left ankle daily -IV antibiotics with vancomycin until 09-24-2022 -Local wound care -manageable Diabetic peripheral neuropathy -patient is based on adrenal insufficiency -amitriptyline 25mg PO QHS -manageable Uncontrolled diabetes, diabetes with complicatio ns, recent DKA -Hemoglobin A1c 13.4 -Recent right foot and ankle gangrene -Insulin sliding scale, FSBS, good glycemic cont rol Hypertension -We will monitor hypertension and tachycardia du e to pain, and hypotension as well as bradycardia secondary over sedation with narcotics -Hydralazine as needed Elevated LFTs -08/20/22-AST 51, ALT 22 -09/03/2022-AST 15, ALT 7 -Patient will require close monitoring since he is using narcotics with Tylenol Impaired functional mobility, balance, gait, and endurance -PT/OT Constipation -We will monitor while utilizing opioid narcotic medications. -Adequate fluid intake also discussed. -Colace 100 mg p.o. twice daily as needed -Dulcolax 10 mg rectally daily as needed -manageable Patient has failed conservative medical therapy. Patient will require monitoring while utilize na rcotic medications for any adverse effects, and will adjust as needed Plan of care discussed with patient and nurse All diagnostics of last 24 hours been reviewed. Risks versus benefits of opioid medications were reviewed to include, but not limited to respiratory depression, accid ental overdose, altered mental status, sudden , constipation which could result in bowel obstruction, seizures, withdrawal, dependency addiction, risk for falls . Case discussed with Dr Ng whom agrees. Thank you for the consultation. [place] [facility] NURSE: -database searched, no information found Kingsley Ng 09/24/22 1631: Attestations Physician Attestation Agree w/findings plan: The patient was seen and exa mined by Ben Klein. I personally developed the care plan, which was continued by the mid-level provider. I was immediately available. at 1911 Electronically Signed by Kingsley Ng MD on 3 at 1637 RPT #:[id number] END OF REPORT 2022-09-07 16:24:00-00:00 [facility] Endocrinology Progress Note REPORT#:[id number] REPORT STATUS: Signed DATE:09/07/22 TIME: 162 PATIENT: KARMA ROWLAND UNIT #: [id number] ROOM/BED: [place] [address] : 63 AGE: 56 SEX: M ATTEND: Fredy Vences MD ADM AUTHOR: Braxton Chapin MD * ALL edits or amendments must be made on the [employer]/computer document * Subjective Patient reports: no complaints Objective General VS: Last Documented: Result Date Time Pulse Ox 98 09/07 1556 B/P 177/90 09/07 1556 B/P Mean 118.8 09/07 1556 Temp 36.4 09/07 1556 Pulse 93 09/07 1556 Resp 15 09/07 1556 O2 Delivery Room air 09/06 1545 PATIENT WEIGHT: Weight (lb): 165 Weight (oz): 5.55 Weight (kg): 75.000 Medications: Active Meds + DC'd Last 24 Hrs Polyethylene Glycol/Electrolytes (GOLYTELY) 2,00 0 ML ONCE ONE PO Polyethylene Glycol/Electrolytes (GOLYTELY) 2,00 0 ML ONCE ONE PO Vancomycin HCl (VANCOMYCIN HCL) 750 MG ONCE ONE IV (DC) Sodium Chloride (SODIUM CHLORIDE 0.9%) 250 ML Insulin Glargine (Lantus/Semglee) 7 UNIT BEDTIME SUBQ Furosemide (LASIX 20MG INJ) 20 MG BLOOD-DOSE BET WEEN IV (CKD) Sodium Chloride (SODIUM CHLORIDE) 10 ML ASDIR IV Furosemide (LASIX) 20 MG DAILY PO Pantoprazole Sodium (PROTONIX) 40 MG Q12HR IV Polyethylene Glycol (MIRALAX) 17 GM DAILY PO Sennosides (Senna Lax 8.6 MG TABLET) 8.6 MG MADALYN Y PO Sodium Chloride (SODIUM CHLORIDE) 10 ML ASDIR NV N IV Amitriptyline HCl (ELAVIL) 25 MG BEDTIME PO Mupirocin (BACTROBAN 2% 22 GM OINTMENT) 1 APPLIC BID NASAL Zinc Oxide (ZINC OXIDE 30 GM OINTMENT) 1 APPLIC DAILY TOPICAL Sterile Water (WATER FOR IRRIGATION) DRESSING CH GELACIO ASDIR PRN IRR Insulin Human Lispro (HUMALOG) 0 AC HS SUBQ Dextrose/Water (DEXTROSE 10% IN WATER) 125 ML DIR PRN IV (CKD) Dextrose/Water (DEXTROSE 10% IN WATER) 250 ML DIR PRN IV (CKD) Glucagon (GLUCAGON) 1 MG ASDIR PRN IM Vancomycin HCl (VANCOMYCIN HCL) 1,000 MG Q24H IV (DC) Sodium Chloride (SODIUM CHLORIDE 0.9%) 250 ML Hydrocodone Bitart/Acetaminophen (NORCO 10/325) 1 TAB Q4H PRN PRN PO Hydromorphone HCl (DILAUDID) 1 MG Q6H PRN PRN IV Lidocaine (LIDODERM) 1 PATCH DAILY TOPICAL Insulin Human Lispro (HUMALOG) 5 UNIT AC SUBQ Miscellaneous Information (VANCOMYCIN PHARMACY T O DOSE) 1 EACH ASDIR IV (CKD) Heparin Sodium (HEPARIN 5000 UNITS/ML) 5,000 UNI T Q8HR SUBQ (DA) Cefepime HCl (MAXIPIME) 1 GM Q6H IV Sodium Chloride (SODIUM CHLORIDE) 10 ML Acetaminophen (TYLENOL) 650 MG Q6H PRN PRN PO Bisacodyl (DULCOLAX) 10 MG DAILY PRN PRN RECTAL Docusate Sodium (COLACE) 100 MG Q12H PRN PRN PO Hydralazine HCl (APRESOLINE) 10 MG Q6H PRN PRN I V Ondansetron HCl (ZOFRAN) 4 MG Q6H PRN PRN IV Physical Exam General appearance: alert, awake Diagnosis, Assessment Plan Hospital course to date: Laboratory Tests: 09/07 09/07 09/07 09/07 09/07 1554 1137 1127 0618 0510 Chemistry Creatinine (0.6 - 1.3 mg/dL) 1.4 H POC Glucose (70 - 110 MG/DL) 112 H 51 L 42 L 13 5 H Hematology Hgb (12.5 - 16.9 g/dL) 8.4 L Hct (37.5 - 50.7 %) 26.2 L Toxicology Random Vancomycin (mcg/mL) 14.7 09/06 09/06 2226 2108 Chemistry POC Glucose (70 - 110 MG/DL) 192 H 211 H Laboratory Tests: 09/06 09/06 09/06 09/06 09/06 1553 1547 1051 0538 0536 Chemistry Creatinine (0.6 - 1.3 mg/dL) 1.4 H POC Glucose (70 - 110 MG/DL) 119 H 92 124 H Hematology Hgb (12.5 - 16.9 g/dL) 8.6 L Hct (37.5 - 50.7 %) 26.1 L Toxicology Vancomycin Trough (10.0 - 20.0 mcg/mL) 18.9 09/05 1910 Chemistry POC Glucose (70 - 110 MG/DL) 117 H Laboratory Tests: 09/05 09/05 09/04 09/04 09/04 1149 0615 2042 1630 1557 Chemistry Sodium (134 - 147 mEq/L) 134 Potassium (3.4 - 5.0 mEq/L) 5.0 Chloride (100 - 108 mEq/L) 109 H Carbon Dioxide (21 - 33 mEq/l) 21 Anion Gap (0 - 20) 9 BUN (7 - 18 mg/dL) 24 H Creatinine (0.6 - 1.3 mg/dL) 1.3 Glomerular Filtr Rate (90 - 95) 63.7 L Glucose (70 - 110 mg/dL) 75 POC Glucose (70 - 110 MG/DL) 74 103 128 H Calcium (8.0 - 10.5 mg/dL) 7.9 L Hematology Hgb (12.5 - 16.9 g/dL) 7.1 L Hct (37.5 - 50.7 %) 22.7 L Toxicology Vancomycin Trough (10.0 - 20.0 mcg/mL) 12.8 Microbiology: Date/Time Procedure - Status Source Growth 09/04 1739 Occult Blood - COMP STOOL Recent Impressions: RADIOLOGY - XR ABDOMEN 1V (KUB) 09/04 1648 Report Impression - Status: SIGNED Entered: 09/04/2022 1757 IMPRESSION: Benign appearance of the abdomen. Impression By: [email or web address] - Hakeem Soto ULTRASOUND - [employer] VEIN UNI/LTD 09/05 1146 Report Impression - Status: SIGNED Entered: 09/05/2022 1333 IMPRESSION: 1. No evidence of deep vein thrombosis. 2. Complex heterogeneous hypoechoic fluid collec tion in the left calf region measuring 8.4 x 2.8 x 2.5 cm; there is no internal vascularity or peripheral hyperemia. May represe nt a hematoma. Impression By: [email or web address] - Mert Ga M.D. RADIOLOGY - XR CHEST 1 V 09/05 1432 Report Impression - Status: SIGNED Entered: 09/05/2022 1515 IMPRESSION: Minimal bibasilar pulmonary opacities Impression By: [email or web address] - Hakeem Perez Laboratory Tests: 09/04 09/04 09/04 09/04 09/04 1630 1557 1100 1031 0816 Chemistry POC Glucose (70 - 110 MG/DL) 128 H 107 99 Hematology Hgb (12.5 - 16.9 g/dL) 7.7 L Hct (37.5 - 50.7 %) 23.7 L Toxicology Vancomycin Trough (10.0 - 20.0 mcg/mL) 12.8 09/04 09/04 09/03 09/03 0721 0540 1944 1836 Chemistry POC Glucose (70 - 110 MG/DL) 87 124 H Hematology Hgb (12.5 - 16.9 g/dL) 6.8 L Hct (37.5 - 50.7 %) 21.2 L Toxicology Vancomycin Peak (30 - 40 MCG/ML) 27.4 L Microbiology: Date/Time Procedure - Status Source Growth 09/04 1037 Occult Blood - COLB STOOL 1.Diabetes mellitus type 2 uncontrolled complica tions. 2. 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 4. Sepsis 5. Prostate abscess. 6. Anemia Blood sugar 135-51 mg/dL.H/H 8.6/26.1 Adjust insulin dose. PT and OT. Electronically Signed by Braxton Chapin MD on at 1625 RPT #:[id number] END OF REPORT 2022-09-07 13:01:00-00:00 [facility]) Hospitalist Progress Note REPORT#:[id number] REPORT STATUS: Signed DATE:09/07/22 TIME: 1301 PATIENT: KARMA ROWLAND UNIT #: [id number] ROOM/BED: [place] [id number] : 63 AGE: 56 SEX: M ATTEND: Fredy Vences MD ADM AUTHOR: Musa Enriquez MD * ALL edits or amendments must be made on the el [employer]/computer document * Subjective Chief complaint: admitted to rehab. participating with therapy HPI: no new issues Review of Systems All systems rev neg: except as noted Objective General VS/I O: Vital Signs: Date Time Temp Pulse Resp B/P B/P Pulse O2 O2 F low FiO2 Mean Ox Delivery Rate 09/07 1129 36.7 87 15 155/74 100.6 96 09/07 0654 36.6 89 15 148/74 98.6 96 09/06 2321 36.6 90 18 158/83 0.0 96 09/06 1923 36.6 91 17 155/76 102.4 95 09/06 1545 36.9 89 18 157/77 103.5 97 Room air 24 hour I O ending at 0700: 09/07 0700 09/06 1900 Intake Total Output Total 1500 1000 Balance -1500 -1000 Number 0 0 Incontinent Voids Number Voids 0 0 Output, Urine 1500 1000 PATIENT WEIGHT: Weight (lb): 165 Weight (oz): 5.55 Weight (kg): 75.000 Medications: Active Meds + DC'd Last 24 Hrs Polyethylene Glycol/Electrolytes (GOLYTELY) 2,00 0 ML ONCE ONE PO Polyethylene Glycol/Electrolytes (GOLYTELY) 2,00 0 ML ONCE ONE PO Vancomycin HCl (VANCOMYCIN HCL) 750 MG ONCE ONE IV (DC) Sodium Chloride (SODIUM CHLORIDE 0.9%) 250 ML Insulin Glargine (Lantus/Semglee) 7 UNIT BEDTIME SUBQ Furosemide (LASIX 20MG INJ) 20 MG BLOOD-DOSE BET WEEN IV (CKD) Sodium Chloride (SODIUM CHLORIDE) 10 ML ASDIR IV Furosemide (LASIX) 20 MG DAILY PO Pantoprazole Sodium (PROTONIX) 40 MG Q12HR IV Polyethylene Glycol (MIRALAX) 17 GM DAILY PO Sennosides (Senna Lax 8.6 MG TABLET) 8.6 MG MADALYN Y PO Sodium Chloride (SODIUM CHLORIDE) 10 ML ASDIR NV N IV Amitriptyline HCl (ELAVIL) 25 MG BEDTIME PO Mupirocin (BACTROBAN 2% 22 GM OINTMENT) 1 APPLIC BID NASAL Zinc Oxide (ZINC OXIDE 30 GM OINTMENT) 1 APPLIC DAILY TOPICAL Sterile Water (WATER FOR IRRIGATION) DRESSING CH GELACIO ASDIR PRN IRR Insulin Human Lispro (HUMALOG) 0 AC HS SUBQ Dextrose/Water (DEXTROSE 10% IN WATER) 125 ML DIR PRN IV (CKD) Dextrose/Water (DEXTROSE 10% IN WATER) 250 ML DIR PRN IV (CKD) Glucagon (GLUCAGON) 1 MG ASDIR PRN IM Vancomycin HCl (VANCOMYCIN HCL) 1,000 MG Q24H IV (DC) Sodium Chloride (SODIUM CHLORIDE 0.9%) 250 ML Hydrocodone Bitart/Acetaminophen (NORCO 10/325) 1 TAB Q4H PRN PRN PO Hydromorphone HCl (DILAUDID) 1 MG Q6H PRN PRN IV Lidocaine (LIDODERM) 1 PATCH DAILY TOPICAL Insulin Human Lispro (HUMALOG) 5 UNIT AC SUBQ Miscellaneous Information (VANCOMYCIN PHARMACY T O DOSE) 1 EACH ASDIR IV (CKD) Heparin Sodium (HEPARIN 5000 UNITS/ML) 5,000 UNI T Q8HR SUBQ (DA) Cefepime HCl (MAXIPIME) 1 GM Q6H IV Sodium Chloride (SODIUM CHLORIDE) 10 ML Acetaminophen (TYLENOL) 650 MG Q6H PRN PRN PO Bisacodyl (DULCOLAX) 10 MG DAILY PRN PRN RECTAL Docusate Sodium (COLACE) 100 MG Q12H PRN PRN PO Hydralazine HCl (APRESOLINE) 10 MG Q6H PRN PRN I V Ondansetron HCl (ZOFRAN) 4 MG Q6H PRN PRN IV Physical Exam Head/Eyes: atraumatic, clear cornea Neck: full range of motion, non-tender Cardiovascular: normal capillary refill, normal heart sounds, regular rate rhythm Respiratory: aerating well, clear to auscultatio n Abdomen: non-tender, normal bowel sounds Genitourinary: no flank pain Extremities: moves all, normal capillary refill Musculoskeletal: normal inspection, painless ran ge of motion 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 X 3, 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 Considered stroke alert: no Skin: dry, intact Psychiatry: normal affect, normal judgment/insig ht Results Findings/Data: Laboratory Tests 09/07 09/07 09/07 09/07 09/06 1137 1127 0618 0510 2226 Chemistry Creatinine (0.6 - 1.3 mg/dL) 1.4 H POC Glucose (70 - 110 MG/DL) 51 L 42 L 135 H 19 2 H 09/06 09/06 2108 1547 Chemistry POC Glucose (70 - 110 MG/DL) 211 H 119 H Laboratory Tests 09/07 0510 Hematology Hgb (12.5 - 16.9 g/dL) 8.4 L Hct (37.5 - 50.7 %) 26.2 L Laboratory Tests 09/07 09/06 0510 1553 Toxicology Vancomycin Trough (10.0 - 20.0 mcg/mL) 18.9 Random Vancomycin (mcg/mL) 14.7 Diagnosis, Assessment Plan Free Text DxA P Notes Free text DxA P notes: Gangrene of right foot s/p Below- knee amputatio n Prostate abscess MRSA bacteremia Hx of Diabetes, Diabetic neuropathy PLANS: Continue with ABx as dierected- currently on Dap tomycin and Cefepime Continue with PT/OT per primary Fall precautions Nutritional support pain control Tight glycemia control- endocrine on board, insu jahaira adjustments Wound care as directed Hepain PPX Continue with supportive / care follow hgb closely and transfuse as needed 09/07/22 sugars low - will monitor HB stable planned for endoscope Doing well continue with pt ot at 1505 RPT #:[id number] END OF REPORT 2022-09-07 10:08:00-00:00 [facility] ([facility]) Gastroenterology Progress Note REPORT#:[id number] REPORT STATUS: Signed DATE:09/07/22 TIME: 1008 PATIENT: KARMA ROWLAND UNIT #: [id number] [place]OM[place]BED: [facility] : [place] AGE: 56 SEX: M ATTEND: Fredy Vences MD ADM AUTHOR: Kassie Avitia MD * ALL edits or amendments must be made on the [employer]/computer document * Subjective HPI: Patient is a 56-year-old male with history of di abetes mellitus type 2 and hypertension who was initially admitted for alte red mental status and right- sided foot infection. 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 The p atient is anemic with current Hgb 7.1. He has received a total of 3 un its pRBCs during this hospitalization. KUB on 09/04 was negative for acute GI process. T he patient denies overt GIB, dark tarry stools, nausea, a bdominal pain, or vomiting. He has never had EGD or colonoscopy. 09/06: No complaints today. Hemoglobin stable. No overt GI bleed. Plan for colonoscopy and endoscopy on Thursday 09/07: No complaints today. No overt GI bleed. Pl anning for colonoscopy and endoscopy tomorrow Objective General VS/I O: Last Documented: Result Date Time Pulse Ox 96 09/07 0654 B/P 148/74 09/07 0654 B/P Mean 98.6 09/07 0654 Temp 97.9 09/07 0654 Pulse 89 09/07 0654 Resp 15 09/07 0654 O2 Delivery Room air 09/06 1545 24 hour I O ending at 0700: 09/07 0700 09/06 1900 Intake Total Output Total 1500 1000 Balance -1500 -1000 Number 0 0 Incontinent Voids Number Voids 0 0 Output, Urine 1500 1000 PATIENT WEIGHT: Weight (lb): 165 Weight (oz): 5.55 Weight (kg): 75.000 Physical Exam HEENT: atraumatic, normocephalic Neck: full range of motion, non-tender Respiratory: symmetric expansion, no distress Abdomen: non-tender, normal bowel sounds, soft, no distention, no guarding Extremities: right BKA Considered stroke alert: no Skin: dry Diagnosis, Assessment Plan Free Text A P: 1. Positive FOBT-KUB on 09/04 was negative for ac [place] GI process. The patient denies overt GIB, dark tarry stools, nausea, abdominal pain, or vomiting. He is not on anticoagulation therapy. -Continue PPI. The patient has never had EGD or colonoscopy -Planning for EGD and colonoscopy tomorrow -Clear liquid diet today. N.p.o. after midnight tonight. Prep ordered 2. Acute on chronic anemia-n o overt GIB with current Hgb 7.1. He has received a total of 3 units pRBCs during this hospitalizati on -Monitor H/H -Monitor for GIB -Transfuse if HGB <7.0 Consultants: cardiology, endocrinology, hospital ist, infectious disease, podiatry at 1009 RPT #:[id number] END OF REPORT 2022-09-07 10:08:00-00:00 [facility] ([facility]) Pharmacy Prog.Note-Vancomycin REPORT#:[id number] REPORT STATUS: Signed DATE:09/07/22 TIME: 1008 PATIENT: KARMA ROWLAND UNIT #: [id number] ROOM/BED: [place] [address] : 63 AGE: 56 SEX: M ATTEND: Fredy Vences MD ADM AUTHOR: Willie Rivera [facility] * ALL edits or amendments must be made on the [employer]/computer document * Vancomycin Vancomycin Medication Therapy Goal: AUC 400-600 mg*hr/L Indication for treatment: OM and MRSA Bacteremia Site of infection: known Day of therapy: 7 Weight: Actual weight (kg): 75 VS and I/O: Vital Signs Date Temp Pulse Resp B/P B/P Mean Pulse Ox FiO2 09/04-09/07 97.3-99.1 84-101 13-19 139-167/67-83 0.0-109.8 95-100 72 hours ending at 0700 09/07 0700 09/06 1900 09/06 19009/04 0700 1900 Intake 1420.00 1220 250 Total Output 1500 1000 2050 1000 900 Total Balance -1500 -1000 -630.00 1220 -750 -900 Intake, IV 720.00 500 Intake, 720 250 Oral Intake, 700 Packed Cells Number 1 Bowel Movements Number 0 0 0 0 Incontinen t Voids Number 0 0 0 0 Voids Output, 1500 1000 2050 1000 900 Urine 72 Hour I O Total 09/07 0709/06 0700 09/05 07 Intake Total 2640.00 250 Output Total 2500 2050 1900 Balance -2500 590.00 -1650 Labs: Laboratory Tests: 09/07 09/06 09/04 0510 1553 1630 Toxicology Vancomycin Trough (10.0 - 20.0 mcg/mL) 18.9 12 .8 Random Vancomycin (mcg/mL) 14.7 Laboratory Test : 09/07 09/06 09/05 0510 0538 0615 Chemistry BUN (7 - 18 mg/dL) 24 H Creatinine (0.6 - 1.3 mg/dL) 1.4 H 1.4 H 1.3 Microbiology: 09/04 1739 STOOL: Occult Blood - COMP Drug admin history: Lab Lab Level SCr Info Surgical Rn Med Dose Inter action/Dialysis Date/Time Date/Time Notes: Treatment plan: consult, cont current regimen/do se Rationale: 56yr old male with history of diabetes mellitus type 2, hypertension who was admitted with altered mental status and right-si ded foot infection. According to him, he noticed a blister on his right foot a round 3 days prior to presentation on 08/18. His foot got progressively more swollen and erythema extended proximally to his lateral foot and ankl e. CT abdomen and pelvis with contrast is concerning for possible prostate abs cess. CT of lower extremity without contrast shows extensive soft tissue rose ma with mottled gas in the subcutaneous and intramuscular compartments of t he foot, compatible with gas- forming infection. Patient's blood cultures have come back positive for MRSA in 2 out of 2 sets. PT has had persistent (+)Ve cx for MRSA 08/18- 08/22. He underwent a debridement of h is foot on 08/19 and cx grew MRSA. PT was started on Vancomycin and clindamycin on 08/18. His MRI show ed a prostate abscess. 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 Patient is s/p ICU stay with merrem/ daptomycin. ID adjusting regimen to cefe pime/vancomycin. Pharmacy consulted to dose vancomycin. Consulting provider: Dr. Wolff Indication: MRSA Bacteremia Goal: AUC 400-600 mcg*hr/ml A/P 09/07: * Pt transferred from [facility] to [facility] 08/23 0 * tmax: 97.9, WBC 8.4 (09/07) * Renal: Cr: 1.4 (increased from 1.1 on 09/03), c lcr: 56 ml/min, urine output: 2500 mL/24 hrs documented * Micro: 08/26 prostate abscess: C farmeri , MRSA, E raffinosus. 08/18, 08/19, 08/21 , 08/22, 08/25 blood MRSRA. 08/28 blood - NGTD, MRSA screen neg * Imagin/30 MRI - OM of talus, caeianeus and navicular bone; JIMENA - negative for endocarditis * Regimen: End date 09/24 per ID. Pt was on vanc to 08/24. Regimen then adjusted to daptomycin and teflaro on 08/25. Vanc restarted on 09/01 with vancomycin 1 g IV q24h. * Monitoring: Vanc peak on at 1830 = 27.7 mcg/ml, Trough: 12.8. [place] (AUC = 462) t1/2: 24 hrs. Repeat trough 09/07 wa s 18.9 mcg/ml, supratherapeutic. Patient is now dose per level. Today random level was 14.7 mcg/ml, therapeutic. Estimated half-life 36 hour s. One time dose of 750 mg vancomycin ordered. Re-check level in 24 hours t o continue pulse dosing. * Electronically Signed by Willie Rivera [facility] on 09/07 at 1011 RPT #:[id number] END OF REPORT 2022-09-07 06:25:00-00:[address] [facility] ([facility]) Rehab Progress Note REPORT#:[id number] REPORT STATUS: Signed DATE:09/07/22 TIME: 624 PATIENT: KARMA ROWLAND UNIT #: [id number] ROOM/BED: [place] [address] : 61 AGE: 56 SEX: M ATTEND: Fredy Vences MD ADM AUTHOR: Guero Candelaria * ALL edits or amendments must be made on the el [employer]/computer document * Guero Candelaria 09/07/22 0625: Subjective Chief complaint: Rehabilitation follow-up Doing better + BM Eating Denies MCBRIDE/N/V/D/CP 14 systems reviewed and neg. except that above. History of present illness: 56 yo HAM with long h/o DM, and HTN who was admitted for fever, flulike symptoms and altered mental status on 08/18. He was doing well until about 3 days prior to admission when he noted blister to have formed o n the dorsum of his foot. His foot started progressively getting more swollen and the blisters started enlarging and extending to his lateral f oot and ankle. He started feeling weak and nauseated. He was noted to have altered mentation and was brought to our ER. He was noted to be in DKA with Blood sugars grea ter than 600. He was seen by podiatry and surgery for BLE wounds and infectio n. He was treated in ICU for sepsis and DKA. He underwent incisional and excisional debridement of right foot and right ankle by podiatry. Patient also found to have prostate abscess underwent transrectal ultrasound aspiration of a bscess and transurethral resection of prostate and unroofing of abscess b y urology Dr. Bass. Endocrinology treated the DKA and blood sugars m uch improved. Patient's right foot was not salvageable and patient und erwent right BKA by Dr. LEROY on 08/28. Patient blood cultures showe d MRSA. Patient continued on antibiotics as per ID. MRI of the pelvis and foot completed. Patient r equired multiple PRBCs for anemia. Patient was found to have a possible small hematoma of the left calf on ultrasound. He complains of pain and swelling of the left ankle. Patient hemodynamically stable and plans are to be transferred to stepdown unit. He is on heparin subcu for VTE. Af ter surgery he is now being mobilized by PT and OT. He is wearing a [employer]or-[employer] orthotic for right knee /BKA protection. Prior to admission the patient was independent living in a single-story house with his spouse with a few steps up to front and back doo r. 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 is at bedside. Patient denies nausea, vomiting, fever, chills, chest pain, shortness of breath with diz ziness. He is requiring IV Dilaudid for pain control. Mental status back to baseline. Pt is progressing slowly with therapy d/t weakness and pain, self care deficit, decreased endurance and balance, and decreased functional mobility. Pt requiring acute inpt rehab for multidiscipli nary team of nursing, therapy, and physicians. Pt is willing and able to partici- kathleen in 3 hr/day inpt rehab to d/c home safely. Pt' s prior level of function was independent. Objective General VS: Vital Signs: Date Time Temp Pulse Resp B/P B/P Pulse O2 O2 F low FiO2 Mean Ox Delivery Rate 09/06 2321 97.9 90 18 158/83 0.0 96 09/06 1923 97.9 91 17 155/76 102.4 95 09/06 1545 98.4 89 18 157/77 103.5 97 Room air 09/06 0718 98.1 88 18 156/77 103.1 100 Room air PATIENT WEIGHT: Weight (lb): 165 Weight (oz): 5.55 Weight (kg): 75.000 Medications: Active Meds + DC'd Last 24 Hrs Vancomycin HCl (VANCOMYCIN HCL) 750 MG ONCE ONE IV Sodium Chloride (SODIUM CHLORIDE 0.9%) 250 ML Insulin Glargine (Lantus/Semglee) 7 UNIT BEDTIME SUBQ Furosemide (LASIX 20MG INJ) 20 MG BLOOD-DOSE BET WEEN IV (CKD) Sodium Chloride (SODIUM CHLORIDE) 10 ML ASDIR I V Sodium Chloride (SODIUM CHLORIDE 0.9%) 500 ML ON CE ONE IV (DC) Furosemide (LASIX) 20 MG DAILY PO Pantoprazole Sodium (PROTONIX) 40 MG Q12HR IV Polyethylene Glycol (MIRALAX) 17 GM DAILY PO Sennosides (Senna Lax 8.6 MG TABLET) 8.6 MG MADALYN Y PO Sodium Chloride (SODIUM CHLORIDE) 10 ML ASDIR NV N IV Amitriptyline HCl (ELAVIL) 25 MG BEDTIME PO Mupirocin (BACTROBAN 2% 22 GM OINTMENT) 1 APPLIC BID NASAL Zinc Oxide (ZINC OXIDE 30 GM OINTMENT) 1 APPLIC DAILY TOPICAL Sterile Water (WATER FOR IRRIGATION) DRESSING CH GELACIO ASDIR PRN IRR Insulin Human Lispro (HUMALOG) 0 AC HS SUBQ Dextrose/Water (DEXTROSE 10% IN WATER) 125 ML DIR PRN IV (CKD) Dextrose/Water (DEXTROSE 10% IN WATER) 250 ML DIR PRN IV (CKD) Glucagon (GLUCAGON) 1 MG ASDIR PRN IM Vancomycin HCl (VANCOMYCIN HCL) 1,000 MG Q24H IV (DC) Sodium Chloride (SODIUM CHLORIDE 0.9%) 250 ML Hydrocodone Bitart/Acetaminophen (NORCO 10/325) 1 TAB Q4H PRN PRN PO Hydromorphone HCl (DILAUDID) 1 MG Q6H PRN PRN IV Lidocaine (LIDODERM) 1 PATCH DAILY TOPICAL Insulin Human Lispro (HUMALOG) 5 UNIT AC SUBQ Miscellaneous Information (VANCOMYCIN PHARMACY T O DOSE) 1 EACH ASDIR IV (CKD) Heparin Sodium (HEPARIN 5000 UNITS/ML) 5,000 UNI T Q8HR SUBQ (DA) Cefepime HCl (MAXIPIME) 1 GM Q6H IV Sodium Chloride (SODIUM CHLORIDE) 10 ML Acetaminophen (TYLENOL) 650 MG Q6H PRN PRN PO Bisacodyl (DULCOLAX) 10 MG DAILY PRN PRN RECTAL Docusate Sodium (COLACE) 100 MG Q12H PRN PRN PO Hydralazine HCl (APRESOLINE) 10 MG Q6H PRN PRN I V Ondansetron HCl (ZOFRAN) 4 MG Q6H PRN PRN IV Functional Progress Functional progress: PT daily note comment: tapan CAVAZOS AGREED TO PT, REPORTED FEELING SLEEPY TODAY , REPORTED NOT SLEEPING WELL. O. PATIENT WORKED ON LE EX IN SUPINE ACROSS ALL PLANES, SLR, HIP ABD, KNEE FLEX, ANKLE PUMPS WITH LLE. WORKE D ON BED MOB ROLLING SIDE TO SIDE WITH USE OF RAIL CGA, ABLE TO MOVE LE TO EOB, REQUIRED ASSIST WITH UPPER TRUNK TO SIT UP EOB WITH CUES TO USE LEFT ELBOW AND WRIST TO PUSH OFF.WORKED ON SLIDING BOARD TRANSFERS, EDUCATED ON SET UP OF SB , PATIENT WORKED ON JM FOR SCOOTING TRANSFERS TO . EDUCATED ON WC MOBILITY , TURNS, REACHING BACK ON ARM REST TO PROPEL WC, WORKED ON SIT TO STANDS IN PARALLEL BARS WITH M AX A, WITH CUES TO PUSH OF WC, SHIFT COM WITHIN BASE OF SUPPORT. STOOD 3 X 10 SEC. PATIENT WORKED ON TRANSFERS BACK TO BED WITH MIN A FOR SETUP AND SCOOTING ASSIST. EDUCATED ON OF F LOADING LLE WITH BOOT TO ALLOW PRESSURE ULCER TO HEAL. A. PATIENT IS PROGRESSING WITH PT, REQUIRES MIN A FOR BED MOB AND TRANSFERS, IMPROVEMENTS WITH WC PROPULSION , DEMONSTRATED DEC ACTIVITY TOLERANCE DUE TO LOW HGB P, CONTINUE WITH POC WITH AN EMPHASIS ON TRANSFERS AND STRENGTHENING Physical Exam General appearance: alert, awake Psych: alert, normal affect, oriented x 3 HEENT: anicteric, sclera clear Neck: supple, no JVD Cardiovascular: S1/S2, no murmur Respiratory: aerating well, clear bilaterally Abdomen: bowel sounds present, non-distended, so ft, non-tender Skin: no rash, R BKA wrapped healing. 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 Gangrene of right foot 2. 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 MRSA bacteremia 4. Cellulitis of foot, right 5. DKA (diabetic ketoacidosis) 6. Hyperglycemia 7. ERIKA (acute kidney injury) 8. Postoperative pain 9. Acute anemia 10. Prostate abscess 11. 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 Leroy Significant impairment in self-care, ADLs and fu nctional mobility Impaired mobility and gait Acute postoperative pain right BKA Diabetic polyneuropathy DKA, DM 2, poorly controlled, A1c greater than 1 4 PAD MRSA bacteremia/sepsis-treated on acute ERIKA Severe hyponatremia-resolved HTN Acute on chronic anemia requiring multiple trans fusions, possible GI bleed Left calf hematoma Edema and clinical arthritis left ankle Early decubitus to left heel/DTI dorsal left mid foot Prostatic abscess 08/26: S/p transrectal ultrasound aspiration of ab scess and transurethral resection of prostate and unroofing of abscess Echo: EF 55-59%, grade 1 diastolic dysfunction 09/02: JIMENA negative for vegetation MRSA OF NARES Left calf hematoma Plan: -PLOF: Independent with transfers and gait -Amputee rehab program -Continue PT and OT -15/12 rehabilitation nursing care. -Case management for safe discharge planning. -Decubitus prevention -Early decubitus to left heel/DTI dorsal left mi dfoot-zinc oxide to the foot, foam, offloading, podiatry managing -DVT prophylaxis-subcutaneous heparin -Strict fall and safety precautions -Work on bed mobility, transfer training, ADLs, pre-gait and gait exercises -Increase endurance and strength -Monitor pain with therapies -OOB to chair -Monitor p.o. intake and nut rition, albumin 1.3, prealbumin less than 5, dietary consultation, protein supplements to promote hea ling -Continue antibiotics per ID -Tight glycemia control- endocrine on board, ins ulin adjustments -Endocrinology, ID, podiatry, cardiology, IM con sulted -Pain management adjusting pain medications -Labs reviewed -Anemia, patient required multiple units of PRBC s on acute, FOBT positive -IV Protonix-consult GI-seri al H H-no evidence of gross bleeding-discussed with Dr. Trinidad -Constipation-abdominal [id number]-CW S enokot and MiraLAX, DSP -Right EMK-reiwlix-zpphfwwp resolved, dr martinez changed hqmfm-kdnlito-qxnyosbf NESTOR-TECH -MRSA OF NARES on Bactroban protocol -LLE edema-venous Doppler wi th complex heterogeneous hypoechoic fluid collection in the left calf region mitzi uring 8.4, 2.8, 2.5 cm suggestive of hematoma. Hold Lasix x3 days. Oralia wrap calf -Generalized edema-some shor tness of breath and abdominal distention-cardiology gave a dose of IV Lasix-monitor urine output, da jaz weights -Chest x-ray with minimal basilar pulmonary opac ities -Anemia-transfused 2 units of PRBC on 09/05 -Advance therapies as tolerated-discusse d treatment plan with patient and -Patient progressing but limited due to weakness requiring min assist with transfers with standby assist. Continue plan of care with emphasis on sliding board transfers. Total time 33 minutes greate r than 50% of the time spent examining patient, left calf hematoma, anemia, hold anticoagulants for a few days, amputee rehab plan of care, goals, therapies, progress, labs, medicati ons. EMR and MAR is reviewed. All questions answered Rehab attestation: Face to face exam completed. Treatment plan disc ussed with patient. Meets continued stay criteria. Agree with interdiscipl inary treatment plan. Mj Vences 09/07/22 1044: Attestations Physician Attestation Agree w/findings plan: Patient seen and examined. Agree with the [facility] gs and plan as documented by DAVID Tran GI Planning for colonoscopy and endoscopy tomorr ow at 1044 Electronically Signed by Guero Candelaria on 0 09/08/22 at 1716 RPT #:[id number] END OF REPORT 2022-09-06 17:38:00-00:00 [facility]) Endocrinology Progress Note REPORT#:[id number] REPORT STATUS: Signed DATE:09/06/22 TIME: 1738 PATIENT: KARMA ROWLAND UNIT #: [id number] ROOM/BED: [place] [address] : 63 AGE: 56 SEX: M ATTEND: Fredy Vences MD ADM AUTHOR: Braxton Chapin MD * ALL edits or amendments must be made on the [employer]/computer document * Subjective Patient reports: no complaints Objective General VS: Last Documented: Result Date Time Pulse Ox 97 09/06 1545 B/P 157/77 09/06 1545 B/P Mean 103.5 09/06 1545 O2 Delivery Room air 09/06 1545 Temp 36.9 09/06 1545 Pulse 89 09/06 1545 Resp 18 09/06 1545 PATIENT WEIGHT: Weight (lb): 165 Weight (oz): 5.55 Weight (kg): 75.000 Medications: Active Meds + DC'd Last 24 Hrs Insulin Glargine (Lantus/Semglee) 7 UNIT BEDTIME SUBQ Furosemide (LASIX 20MG INJ) 20 MG BLOOD-DOSE BET WEEN IV (CKD) Sodium Chloride (SODIUM CHLORIDE) 10 ML ASDIR IV Sodium Chloride (SODIUM CHLORIDE 0.9%) 500 ML ON CE ONE IV (DC) Furosemide (LASIX) 20 MG DAILY PO Pantoprazole Sodium (PROTONIX) 40 MG Q12HR IV Polyethylene Glycol (MIRALAX) 17 GM DAILY PO Sennosides (Senna Lax 8.6 MG TABLET) 8.6 MG MADALYN Y PO Sodium Chloride (SODIUM CHLORIDE) 10 ML ASDIR NV N IV Amitriptyline HCl (ELAVIL) 25 MG BEDTIME PO Mupirocin (BACTROBAN 2% 22 GM OINTMENT) 1 APPLIC BID NASAL Zinc Oxide (ZINC OXIDE 30 GM OINTMENT) 1 APPLIC DAILY TOPICAL Sterile Water (WATER FOR IRRIGATION) DRESSING CH GELACIO ASDIR PRN IRR Insulin Human Lispro (HUMALOG) 0 AC HS SUBQ Dextrose/Water (DEXTROSE 10% IN WATER) 125 ML DIR PRN IV (CKD) Dextrose/Water (DEXTROSE 10% IN WATER) 250 ML DIR PRN IV (CKD) Glucagon (GLUCAGON) 1 MG ASDIR PRN IM Vancomycin HCl (VANCOMYCIN HCL) 1,000 MG Q24H IV (DC) Sodium Chloride (SODIUM CHLORIDE 0.9%) 250 ML Hydrocodone Bitart/Acetaminophen (NORCO 10/325) 1 TAB Q4H PRN PRN PO Hydromorphone HCl (DILAUDID) 1 MG Q6H PRN PRN IV Lidocaine (LIDODERM) 1 PATCH DAILY TOPICAL Insulin Human Lispro (HUMALOG) 5 UNIT AC SUBQ Miscellaneous Information (VANCOMYCIN PHARMACY T O DOSE) 1 EACH ASDIR IV (CKD) Heparin Sodium (HEPARIN 5000 UNITS/ML) 5,000 UNI T Q8HR SUBQ (DA) Cefepime HCl (MAXIPIME) 1 GM Q6H IV Sodium Chloride (SODIUM CHLORIDE) 10 ML Acetaminophen (TYLENOL) 650 MG Q6H PRN PRN PO Bisacodyl (DULCOLAX) 10 MG DAILY PRN PRN RECTAL Docusate Sodium (COLACE) 100 MG Q12H PRN PRN PO Hydralazine HCl (APRESOLINE) 10 MG Q6H PRN PRN I V Ondansetron HCl (ZOFRAN) 4 MG Q6H PRN PRN IV Physical Exam General appearance: alert, awake Diagnosis, Assessment Plan Hospital course to date: Laboratory Tests: 09/06 09/06 09/06 09/06 09/06 1553 1547 1051 0538 0536 Chemistry Creatinine (0.6 - 1.3 mg/dL) 1.4 H POC Glucose (70 - 110 MG/DL) 119 H 92 124 H Hematology Hgb (12.5 - 16.9 g/dL) 8.6 L Hct (37.5 - 50.7 %) 26.1 L Toxicology Vancomycin Trough (10.0 - 20.0 mcg/mL) 18.9 09/05 1910 Chemistry POC Glucose (70 - 110 MG/DL) 117 H Laboratory Tests: 09/05 09/05 09/04 09/04 09/04 1149 0615 2042 1630 1557 Chemistry Sodium (134 - 147 mEq/L) 134 Potassium (3.4 - 5.0 mEq/L) 5.0 Chloride (100 - 108 mEq/L) 109 H Carbon Dioxide (21 - 33 mEq/l) 21 Anion Gap (0 - 20) 9 BUN (7 - 18 mg/dL) 24 H Creatinine (0.6 - 1.3 mg/dL) 1.3 Glomerular Filtr Rate (90 - 95) 63.7 L Glucose (70 - 110 mg/dL) 75 POC Glucose (70 - 110 MG/DL) 74 103 128 H Calcium (8.0 - 10.5 mg/dL) 7.9 L Hematology Hgb (12.5 - 16.9 g/dL) 7.1 L Hct (37.5 - 50.7 %) 22.7 L Toxicology Vancomycin Trough (10.0 - 20.0 mcg/mL) 12.8 Microbiology: Date/Time Procedure - Status Source Growth 09/04 1739 Occult Blood - COMP STOOL Recent Impressions: RADIOLOGY - XR ABDOMEN 1V (KUB) 09/04 1648 Report Impression - Status: SIGNED Entered: 09/04/2022 725 IMPRESSION: Benign appearance of the abdomen. Impression By: [email or web address] - Hakeem Soto ULTRASOUND - [employer]IN UNI/LTD 09/05 1146 Report Impression - Status: SIGNED Entered: 09/05/2022 1333 IMPRESSION: 1. No evidence of deep vein thrombosis. 2. Complex heterogeneous hypoechoic fluid collec tion in the left calf region measuring 8.4 x 2.8 x 2.5 cm; there is no internal vascularity or peripheral hyperemia. May represe nt a hematoma. Impression By: [email or web address] - Mert Ga M.D. RADIOLOGY - XR CHEST 1 V 09/05 1432 Report Impression - Status: SIGNED Entered: 09/05/2022 1515 IMPRESSION: Minimal bibasilar pulmonary opacities Impression By: TipTDO - Hakeem Perez Laboratory Tests: 09/04 09/04 09/04 09/04 09/04 1630 1557 1100 1031 0816 Chemistry POC Glucose (70 - 110 MG/DL) 128 H 107 99 Hematology Hgb (12.5 - 16.9 g/dL) 7.7 L Hct (37.5 - 50.7 %) 23.7 L Toxicology Vancomycin Trough (10.0 - 20.0 mcg/mL) 12.8 09/04 09/04 09/03 09/03 0721 0540 1944 1836 Chemistry POC Glucose (70 - 110 MG/DL) 87 124 H Hematology Hgb (12.5 - 16.9 g/dL) 6.8 L Hct (37.5 - 50.7 %) 21.2 L Toxicology Vancomycin Peak (30 - 40 MCG/ML) 27.4 L Microbiology: Date/Time Procedure - Status Source Growth 09/04 1037 Occult Blood - COLB STOOL 1.Diabetes mellitus type 2 uncontrolled complica tions. 2. 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 4. Sepsis 5. Prostate abscess. 6. Anemia Blood sugar 124-92 mg/dL.H/H 8.6/26.1 Adjust insulin dose. PT and OT. Electronically Signed by Braxton Chapin MD on at 6472 RPT #:[id number] END OF REPORT 2022-09-06 14:33:00-00:00 [facility] ([facility]) Gastroenterology Progress Note REPORT#:[id number] REPORT STATUS: Signed DATE:09/06/22 TIME: 1433 PATIENT: KARMA ROWLAND UNIT #: [id number] ROOM/BED: [place] [address] : 63 AGE: 56 SEX: M ATTEND: Fredy Vences MD ADM AUTHOR: Kassie Avitia MD * ALL edits or amendments must be made on the [employer]/computer document * Subjective HPI: Patient is a 56-year-old male with history of di abetes mellitus type 2 and hypertension who was initially admitted for alte red mental status and right- sided foot infection. 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 The p atient is anemic with current Hgb 7.1. He has received a total of 3 un its pRBCs during this hospitalization. KUB on 09/04 was negative for acute GI process. T he patient denies overt GIB, dark tarry stools, nausea, a bdominal pain, or vomiting. He has never had EGD or colonoscopy. 09/06: No complaints today. Hemoglobin stable. No overt GI bleed. Plan for colonoscopy and endoscopy on Thursday Objective Physical Exam HEENT: atraumatic, normocephalic Neck: full range of motion, non-tender Respiratory: symmetric expansion, no distress Abdomen: non-tender, normal bowel sounds, soft, no distention, no guarding Extremities: right BKA Considered stroke alert: no Skin: dry Diagnosis, Assessment Plan Free Text A P: 1. Positive FOBT-KUB on 09/04 was negative for ac [place] GI process. The patient denies overt GIB, dark tarry stools, nausea, abdominal pain, or vomiting. He is not on anticoagulation therapy. -Continue PPI. The patient has never had EGD or colonoscopy -Planning for EGD and colonoscopy on Thursday. -Clear liquid diet on Thursday. N.p.o. aft er midnight on Thursday. Will order prep 2. Acute on chronic anemia-n o overt GIB with current Hgb 7.1. He has received a total of 3 units pRBCs during this hospitalizati on -Monitor H/H -Monitor for GIB -Transfuse if HGB <7.0 Consultants: cardiology, endocrinology, hospital ist, infectious disease, podiatry at 1435 RPT #:[id number] END OF REPORT 2022-09-06 12:30:00-00:[address] [facility] ([facility]) Hospitalist Progress Note REPORT#:[id number] REPORT STATUS: Signed DATE:09/06/22 TIME: 1230 PATIENT: KARMA ROWLAND UNIT #: [id number] ROOM/BED: [place] [address] : 63 AGE: 56 SEX: M ATTEND: Fredy Vences MD ADM AUTHOR: Musa Enriquez MD * ALL edits or amendments must be made on the [employer]/computer document * Subjective Chief complaint: admitted to rehab. participating with therapy HPI: no new issues Review of Systems All systems rev neg: except as noted Objective General VS/I O: Vital Signs: Date Time Temp Pulse Resp B/P B/P Pulse O2 O2 F low FiO2 Mean Ox Delivery Rate 09/06 1545 36.9 89 18 157/77 103.5 97 Room air 09/06 0718 36.7 88 18 156/77 103.1 100 Room air 09/06 0127 36.6 89 15 150/75 99.6 96 09/06 0004 36.7 94 15 149/73 98.4 96 09/05 2303 36.7 94 15 151/72 98.2 96 09/05 2245 37.3 93 15 154/74 100.5 95 09/05 2239 36.9 93 15 144/68 93.7 99 09/05 2234 36.9 92 15 149/70 96.1 95 09/05 2230 37.1 94 15 158/75 102.7 97 09/057 36.9 96 16 150/73 98.5 95 09/05 2142 36.8 09/05 1849 91 151/75 100.6 96 09/05 1813 88 157/75 102.3 96 09/05 1743 89 154/76 102.0 97 09/05 1713 95 161/78 105.3 96 09/05 1659 100 161/77 104.9 97 09/05 1644 36.3 96 166/82 109.8 96 09/05 1629 36.3 96 162/80 107.1 96 24 hour I O ending at 0700: 09/06 0700 09/05 1900 Intake Total 1420.00 1220 Output Total 2049 Balance -630.00 1220 Intake, IV 720.00 500 Intake, Oral 720 Intake, 700 Packed Cells Number 1 Bowel Movements Number 0 Incontinent Voids Number Voids 0 Output, Urine 2049 PATIENT WEIGHT: Weight (lb): 165 Weight (oz): 5.55 Weight (kg): 75.000 Medications: Active Meds + DC'd Last 24 Hrs Insulin Glargine (Lantus/Semglee) 7 UNIT BEDTIME SUBQ Furosemide (LASIX 20MG INJ) 20 MG BLOOD-DOSE BET WEEN IV (CKD) Sodium Chloride (SODIUM CHLORIDE) 10 ML ASDIR IV Sodium Chloride (SODIUM CHLORIDE 0.9%) 500 ML ON CE ONE IV (DC) Furosemide (LASIX) 20 MG DAILY PO Pantoprazole Sodium (PROTONIX) 40 MG Q12HR IV Polyethylene Glycol (MIRALAX) 17 GM DAILY PO Sennosides (Senna Lax 8.6 MG TABLET) 8.6 MG MADALYN Y PO Sodium Chloride (SODIUM CHLORIDE) 10 ML ASDIR NV N IV Amitriptyline HCl (ELAVIL) 25 MG BEDTIME PO Mupirocin (BACTROBAN 2% 22 GM OINTMENT) 1 APPLIC BID NASAL Zinc Oxide (ZINC OXIDE 30 GM OINTMENT) 1 APPLIC DAILY TOPICAL Sterile Water (WATER FOR IRRIGATION) DRESSING CH GELACIO ASDIR PRN IRR Insulin Human Lispro (HUMALOG) 0 AC HS SUBQ Dextrose/Water (DEXTROSE 10% IN WATER) 125 ML DIR PRN IV (CKD) Dextrose/Water (DEXTROSE 10% IN WATER) 250 ML DIR PRN IV (CKD) Glucagon (GLUCAGON) 1 MG ASDIR PRN IM Vancomycin HCl (VANCOMYCIN HCL) 1,000 MG Q24H IV Sodium Chloride (SODIUM CHLORIDE 0.9%) 250 ML Hydrocodone Bitart/Acetaminophen (NORCO 10/325) 1 TAB Q4H PRN PRN PO Hydromorphone HCl (DILAUDID) 1 MG Q6H PRN PRN IV Lidocaine (LIDODERM) 1 PATCH DAILY TOPICAL Insulin Human Lispro (HUMALOG) 5 UNIT AC SUBQ Miscellaneous Information (VANCOMYCIN PHARMACY T O DOSE) 1 EACH ASDIR IV (CKD) Heparin Sodium (HEPARIN 5000 UNITS/ML) 5,000 UNI T Q8HR SUBQ (DA) Cefepime HCl (MAXIPIME) 1 GM Q6H IV Sodium Chloride (SODIUM CHLORIDE) 10 ML Acetaminophen (TYLENOL) 650 MG Q6H PRN PRN PO Bisacodyl (DULCOLAX) 10 MG DAILY PRN PRN RECTAL Docusate Sodium (COLACE) 100 MG Q12H PRN PRN PO Hydralazine HCl (APRESOLINE) 10 MG Q6H PRN PRN I V Ondansetron HCl (ZOFRAN) 4 MG Q6H PRN PRN IV Physical Exam Head/Eyes: atraumatic, clear cornea Neck: full range of motion, non-tender Cardiovascular: normal capillary refill, normal heart sounds, regular rate rhythm Respiratory: aerating well, clear to auscultatio n Abdomen: non-tender, normal bowel sounds Genitourinary: no flank pain Extremities: moves all, normal capillary refill Musculoskeletal: normal inspection, painless ran ge of motion 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 X 3, 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 Considered stroke alert: no Skin: dry, intact Psychiatry: normal affect, normal judgment/insig ht Results Findings/Data: Laboratory Tests 09/06 09/06 09/06 09/06 09/05 1547 1051 0538 0536 1910 Chemistry Creatinine (0.6 - 1.3 mg/dL) 1.4 H POC Glucose (70 - 110 MG/DL) 119 H 92 124 H 117 H 09/05 1623 Chemistry POC Glucose (70 - 110 MG/DL) 123 H Laboratory Tests 09/06 0538 Hematology Hgb (12.5 - 16.9 g/dL) 8.6 L Hct (37.5 - 50.7 %) 26.1 L Diagnosis, Assessment Plan Free Text DxA P Notes Free text DxA P notes: Gangrene of right foot s/p Below- knee amputatio n Prostate abscess MRSA bacteremia Hx of Diabetes, Diabetic neuropathy PLANS: Continue with ABx as dierected- currently on Dap tomycin and Cefepime Continue with PT/OT per primary Fall precautions Nutritional support pain control Tight glycemia control- endocrine on board, insu jahaira adjustments Wound care as directed Hepain PPX Continue with supportive / care follow hgb closely and transfuse as needed 09/06/22 Doing well continue with pt ot Electronically Signed by Musa Enriquez MD on 0 09/06/22 at 1624 RPT #:[id number] END OF REPORT 2022-09-06 09:10:00-00:[address] [facility] ([facility]) Pharmacy Prog.Note-Vancomycin REPORT#:[id number] REPORT STATUS: Signed DATE:09/06/22 TIME: 909 PATIENT: KARMA ROWLAND UNIT #: [id number] ROOM/BED: [place] [address] : 61 AGE: 56 SEX: M ATTEND: Fredy Vences MD ADM AUTHOR: Hyun Pichardo [facility] * ALL edits or amendments must be made on the [employer]/computer document * See Addendum Vancomycin Vancomycin Medication Therapy Goal: AUC 400-600 mg*hr/L Indication for treatment: OM and MRSA Bacteremia Labs: Laboratory Tests: 09/04 09/03 1630 1836 Toxicology Vancomycin Peak (30 - 40 MCG/ML) 27.4 L Vancomycin Trough (10.0 - 20.0 mcg/mL) 12.8 Laboratory Test : 09/06 09/05 0538 0615 Chemistry BUN (7 - 18 mg/dL) 24 H Creatinine (0.6 - 1.3 mg/dL) 1.4 H 1.3 Microbiology: 09/04 1739 STOOL: Occult Blood - COMP Treatment plan: cont current regimen/dose Rationale: 56yr old male with history of diabetes mellitus type 2, hypertension who was admitted with altered mental status and right-si ded foot infection. According to him, he noticed a blister on his right foot a round 3 days prior to presentation on 08/18. His foot got progressively more swollen and erythema extended proximally to his lateral foot and ankl e. CT abdomen and pelvis with contrast is concerning for possible prostate abs cess. CT of lower extremity without contrast shows extensive soft tissue rose ma with mottled gas in the subcutaneous and intramuscular compartments of t he foot, compatible with gas- forming infection. Patient's blood cultures have come back positive for MRSA in 2 out of 2 sets. PT has had persistent (+)Ve cx for MRSA 08/18- 08/22. He underwent a debridement of h is foot on 08/19 and cx grew MRSA. PT was started on Vancomycin and clindamycin on 08/18. His MRI show ed a prostate abscess. 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 Patient is s/p ICU stay with merrem/ daptomycin. ID adjusting regimen to cefe pime/vancomycin. Pharmacy consulted to dose vancomycin. Consulting provider: Dr. Wolff Indication: MRSA Bacteremia Goal: AUC 400-600 mcg*hr/ml A/P 09/06: * Pt transferred from [facility] to [facility] 08/23 0 * tmax: 37.3, WBC 8.7 (09/03) * Renal: Cr: 1.4 (increased from 1.1 on 09/03), c lcr: 61 ml/min, urine output: 2050 mL/24 hrs documented * Micro: 08/26 prostate abscess: C farmeri , MRSA, E raffinosus. 08/18, 08/19, 08/21 , 08/22, 08/25 blood MRSRA. 08/28 blood - NGTD, MRSA screen neg * Imagin/30 MRI - OM of talus, caeianeus and navicular bone; JIMENA - negative for endocarditis * Regimen: End date 09/24 per ID. Pt was on vanc to 08/24. Regimen then adjusted to daptomycin and teflaro on 08/25. Vanc restarted on 09/01 with vancomycin 1 g IV q24h. * Monitoring: Vanc peak on at 1830 = 27.7 mcg/ml, Trough: 12.8. Theapeutic (AUC = 462) t1/2: 24 hrs * Will order trough today @ 1600 as creatinine is increasing (urint output still seems ok) aiming for trough of 13 Electronically Signed by Hyun Pichardo [facility] on 0 09/06/22 at 0927 Addendum 1: 09/06/22 1640 by Hyun Pichardo [facility] Vancomycin trough: 18.9 (supratherapeutic), Vanc omycin held for today. Random ordered with AM labs tomorrow as unsure if renal function will continue to get worse or start to improve. Will dose based on le jayda tomorrow am. Electronically Signed by Hyun Pichardo [facility] on 0 09/06/22 at 1641 RPT #:[id number] END OF REPORT 2022-09-06 07:31:00-00:00 [facility] ([facility]) Pain Management Progress Note REPORT#:[id number] REPORT STATUS: Signed DATE:09/06/22 TIME: 730 PATIENT: KARMA ROWLAND UNIT #: [id number] ROOM/BED: [place] [id number] : 63 AGE: 56 SEX: M ATTEND: Fredy Vences MD ADM AUTHOR: Ben Klein * ALL edits or amendments must be made on the [employer]/computer document * Ben Klein 09/06/22 0731: Subjective Chief complaint: Patient seen and examined. Chart/MAR reviewed. Patient is feeling better this evening. is at bedside. BKA discomfort is manageable with alternating oral and IV narcotic s. No bothersome neuropathy symptoms, and he is sleeping better. Patient being seen for Acute postoperative pain, right foot and ankle gangrene, requiring BKA, Constipation Patient is still requiring medications to help w ith managing current problems. Patient is requiring IV narcotics to help manage breakthrough pain No fever/chills, chest pain, orthopnea, nausea/v omiting, pruritus, or hallucinations. 14 point ROS undertaken unremarkable except as n oted Objective General VS/I O: Vital Signs Date Temp Pulse Resp B/P B/P Mean Pulse Ox FiO2 09/05-09/06 36.3-37.3 88-101 15-19 144-166/68-82 93.7-109.8 95-100 Last Documented: Result Date Time Pulse Ox 100 09/06 717 B/P 156/77 09/06 717 B/P Mean 103.1 09/06 717 O2 Delivery Room air 09/06 717 Temp 36.7 09/06 717 Pulse 88 09/06 717 Resp 18 09/06 717 24 hour I O ending at 0700: 09/06 0700 09/05 1900 Intake Total 1420.00 1220 Output Total 2049 Balance -630.00 1220 Intake, IV 720.00 500 Intake, Oral 720 Intake, 700 Packed Cells Number 1 Bowel Movements Number 0 Incontinent Voids Number Voids 0 Output, Urine 2049 PATIENT WEIGHT: Weight (lb): 165 Weight (oz): 5.55 Weight (kg): 75.000 Medications: Active Meds + DC'd Last 24 Hrs Insulin Glargine (Lantus/Semglee) 7 UNIT BEDTIME SUBQ Furosemide (LASIX 20MG INJ) 20 MG BLOOD-DOSE BET WEEN IV (CKD) Sodium Chloride (SODIUM CHLORIDE) 10 ML ASDIR IV Sodium Chloride (SODIUM CHLORIDE 0.9%) 500 ML ON CE ONE IV Furosemide (LASIX) 20 MG DAILY PO Pantoprazole Sodium (PROTONIX) 40 MG Q12HR IV Polyethylene Glycol (MIRALAX) 17 GM DAILY PO Sennosides (Senna Lax 8.6 MG TABLET) 8.6 MG MADALYN Y PO Sodium Chloride (SODIUM CHLORIDE) 10 ML ASDIR NV N IV Amitriptyline HCl (ELAVIL) 25 MG BEDTIME PO Mupirocin (BACTROBAN 2% 22 GM OINTMENT) 1 APPLIC BID NASAL Zinc Oxide (ZINC OXIDE 30 GM OINTMENT) 1 APPLIC DAILY TOPICAL Insulin Glargine (Lantus/Semglee) 10 UNIT BEDTIM E SUBQ (DC) Sterile Water (WATER FOR IRRIGATION) DRESSING C HANGE ASDIR PRN IRR Insulin Human Lispro (HUMALOG) 0 AC HS SUBQ Dextrose/Water (DEXTROSE 10% IN WATER) 125 ML DIR PRN IV (CKD) Dextrose/Water (DEXTROSE 10% IN WATER) 250 ML DIR PRN IV (CKD) Glucagon (GLUCAGON) 1 MG ASDIR PRN IM Vancomycin HCl (VANCOMYCIN HCL) 1,000 MG Q24H IV Sodium Chloride (SODIUM CHLORIDE 0.9%) 250 ML Hydrocodone Bitart/Acetaminophen (NORCO 10/325) 1 TAB Q4H PRN PRN PO Hydromorphone HCl (DILAUDID) 1 MG Q6H PRN PRN IV Lidocaine (LIDODERM) 1 PATCH DAILY TOPICAL Insulin Human Lispro (HUMALOG) 5 UNIT AC SUBQ Miscellaneous Information (VANCOMYCIN PHARMACY T O DOSE) 1 EACH ASDIR IV (CKD) Heparin Sodium (HEPARIN 5000 UNITS/ML) 5,000 UNI T Q8HR SUBQ Cefepime HCl (MAXIPIME) 1 GM Q6H IV Sodium Chloride (SODIUM CHLORIDE) 10 ML Acetaminophen (TYLENOL) 650 MG Q6H PRN PRN PO Bisacodyl (DULCOLAX) 10 MG DAILY PRN PRN RECTAL Docusate Sodium (COLACE) 100 MG Q12H PRN PRN PO Hydralazine HCl (APRESOLINE) 10 MG Q6H PRN PRN I V Ondansetron HCl (ZOFRAN) 4 MG Q6H PRN PRN IV Physical Exam General appearance: alert, awake, oriented, no a cute distress Head/eyes: atraumatic, EOMI, normocephalic, norm al conjunctiva/sclera, PERRLA ENT: normal ear left, normal nose, normal pharyn x, moist mucosal membranes Neck: full range of motion, no lymphadenopathy, supple/no meningismus Cardiovascular: regular rate rhythm Respiratory: clear to auscultation, no distress, aerating well Abdomen: soft, non-tender, no distention , active bowel sounds in all quarants. 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, no sensory deficit s, CNII-XII grossly intact Considered stroke alert: no Skin: dry, intact, no rash Results Findings/data: Laboratory Tests: 09/06 09/05 09/05 09/05 0536 1910 1623 1149 Chemistry POC Glucose (70 - 110 MG/DL) 124 H 117 H 123 H 74 Recent Impressions: ULTRASOUND - [facility] VEIN UNI/LTD 09/05 1146 Report Impression - Status: SIGNED Entered: 09/05/2022 1333 IMPRESSION: 1. No evidence of deep vein thrombosis. 2. Complex heterogeneous hypoechoic fluid collec tion in the left calf region measuring 8.4 x 2.8 x 2.5 cm; there is no internal vascularity or peripheral hyperemia. May represe nt a hematoma. Impression By: [email or web address] - Mert Ga M.D. RADIOLOGY - XR CHEST 1 V 09/05 1432 Report Impression - Status: SIGNED Entered: 09/05/2022 1515 IMPRESSION: Minimal bibasilar pulmonary opacities Impression By: TipTDO - Hakeem Perez Diagnosis, Assessment Plan Free text A P: A/P: Patient is a 56 year old male who presents with: Past Medical History: Prostate abscess, right fo ot foot and ankle gangrene, diabetes, hypertension, hyperlipidemia Past Surgical History: TURP, right BKA Family History: Noncontributory Social History: Denies tobacco, alcohol, or drug use Allergies: NKDA Recent prostate abscess -Status post TURP with unroofing of abscess -IV antibiotics with vancomycin until 09-24-2022 Acute postoperative pain, right foot and ankle g angrene, requiring BKA -Patient is at risk for further amputations or l oss of limb due to comorbid conditions -Status post right BKA 08/28/2022 -Tylenol 650 mg p.o. every 6 hours as needed ofelia n scale 1 3 -Check 10/325 1 tablet p.o. every 4 hours as nee ded pain scale 4 10 -Dilaudid 1 mg IV every 6 ho urs as needed pain scale 7 10, second line therapy- patient will require close monitoring while usin g IV narcotics for any deleterious effect -Lidoderm patch to left ankle daily -IV antibiotics with vancomycin until 09-24-2022 -Local wound care -manageable Diabetic peripheral neuropathy -patient is based on adrenal insufficiency -amitriptyline 25mg PO QHS -manageable Uncontrolled diabetes, diabetes with complicatio ns, recent DKA -Hemoglobin A1c 13.4 -Recent right foot and ankle gangrene -Insulin sliding scale, FSBS, good glycemic cont rol Hypertension -We will monitor hypertension and tachycardia du e to pain, and hypotension as well as bradycardia secondary over sedation with narcotics -Hydralazine as needed Elevated LFTs -08/20/22-AST 51, ALT 22 -09/03/2022-AST 15, ALT 7 -Patient will require close monitoring since he is using narcotics with Tylenol Impaired functional mobility, balance, gait, and endurance -PT/OT Constipation -We will monitor while utilizing opioid narcotic medications. -Adequate fluid intake also discussed. -Colace 100 mg p.o. twice daily as needed -Dulcolax 10 mg rectally daily as needed -manageable Patient has failed conservative medical therapy. Patient will require monitoring while utilize na rcotic medications for any adverse effects, and will adjust as needed Plan of care discussed with patient and nurse All diagnostics of last 24 hours been reviewed. Risks versus benefits of opioid medications were reviewed to include, but not limited to respiratory depression, accid ental overdose, altered mental status, sudden , constipation which could result in bowel obstruction, seizures, withdrawal, dependency addiction, risk for falls . Case discussed with Dr Ng whom agrees. Thank you for the consultation. [place] [facility] NURSE: -database searched, no information found Kingsley Ng 09/23/22 1734: Attestations Physician Attestation Agree w/findings plan: The patient was seen and exa mined by Ben Klein. I personally developed the care plan, which was continued by the mid-level provider. I was immediately available. at 1816 Electronically Signed by Kingsley Ng MD on 3 at 1737 RPT #:[id number] END OF REPORT 2022-09-06 06:24:00-00:00 [facility] Rehab Progress Note REPORT#:[id number] REPORT STATUS: Signed DATE:09/06/22 TIME: 623 PATIENT: KARMA ROWLAND UNIT #: [id number] ROOM/BED: [place] [id number] : 63 AGE: 56 SEX: M ATTEND: Fredy Vences MD ADM AUTHOR: Guero Candelaria * ALL edits or amendments must be made on the [employer]/computer document * Guero Candelaria 09/06/22 0624: Subjective Chief complaint: Rehabilitation follow-up Doing better + BM Patient very motivated Eating Denies MCBRIDE/N/V/D/CP 14 systems reviewed and neg. except that above. History of present illness: 56 yo HAM with long h/o DM, and HTN who was admitted for fever, flulike symptoms and altered mental status on 08/18. He was doing well until about 3 days prior to admission when he noted blister to have formed o n the dorsum of his foot. His foot started progressively getting more swollen and the blisters started enlarging and extending to his lateral f oot and ankle. He started feeling weak and nauseated. He was noted to have altered mentation and was brought to our ER. He was noted to be in DKA with Blood sugars grea ter than 600. He was seen by podiatry and surgery for BLE wounds and infectio n. He was treated in ICU for sepsis and DKA. He underwent incisional and excisional debridement of right foot and right ankle by podiatry. Patient also found to have prostate abscess underwent transrectal ultrasound aspiration of a bscess and transurethral resection of prostate and unroofing of abscess b y urology Dr. Bass. Endocrinology treated the DKA and blood sugars m uch improved. Patient's right foot was not salvageable and patient und erwent right BKA by Dr. LEROY on 08/28. Patient blood cultures showe d MRSA. Patient continued on antibiotics as per ID. MRI of the pelvis and foot completed. Patient r equired multiple PRBCs for anemia. Patient was found to have a possible small hematoma of the left calf on ultrasound. He complains of pain and swelling of the left ankle. Patient hemodynamically stable and plans are to be transferred to stepdown unit. He is on heparin subcu for VTE. Af ter surgery he is now being mobilized by PT and OT. He is wearing a nestor-tech orthotic for right knee /BKA protection. Prior to admission the patient was independent living in a single-story house with his spouse with a few steps up to front and back doo r. 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 is at bedside. Patient denies nausea, vomiting, fever, chills, chest pain, shortness of breath with diz ziness. He is requiring IV Dilaudid for pain control. Mental status back to baseline. Pt is progressing slowly with therapy d/t weakness and pain, self care deficit, decreased endurance and balance, and decreased functional mobility. Pt requiring acute inpt rehab for multidiscipli nary team of nursing, therapy, and physicians. Pt is willing and able to partici- kathleen in 3 hr/day inpt rehab to d/c home safely. Pt' s prior level of function was independent. Objective General VS: Vital Signs: Date Time Temp Pulse Resp B/P B/P Pulse O2 O2 F low FiO2 Mean Ox Delivery Rate 09/06 0127 97.9 89 15 150/75 99.6 96 09/06 0004 98.1 94 15 149/73 98.4 96 09/05 2303 98.1 94 15 151/72 98.2 96 09/05 2245 99.1 93 15 154/74 100.5 95 09/05 2239 98.4 93 15 144/68 93.7 99 09/05 2234 98.4 92 15 149/70 96.1 95 09/05 2230 98.8 94 15 158/75 102.7 97 09/05 2227 98.4 96 16 150/73 98.5 95 09/05 2142 98.2 09/05 1849 91 151/75 100.6 96 09/05 1813 88 157/75 102.3 96 09/05 1743 89 154/76 102.0 97 09/05 1713 95 161/78 105.3 96 09/05 1659 100 161/77 104.9 97 09/05 1644 97.3 96 166/82 109.8 96 09/05 1629 97.3 96 162/80 107.1 96 09/05 1615 97.9 101 17 160/75 103.4 99 09/05 1559 98.2 91 17 151/76 101.4 96 09/05 1544 98.4 90 16 152/71 97.9 96 09/05 1520 98.1 92 16 146/71 96.0 95 09/05 1443 98.4 93 19 156/75 102.0 96 Room air 09/05 0742 98.8 89 18 148/70 96.2 97 Room air PATIENT WEIGHT: Weight (lb): 165 Weight (oz): 5.55 Weight (kg): 75.000 Medications: Active Meds + DC'd Last 24 Hrs Insulin Glargine (Lantus/Semglee) 7 UNIT BEDTIME SUBQ Furosemide (LASIX 20MG INJ) 20 MG BLOOD-DOSE BET WEEN IV (CKD) Sodium Chloride (SODIUM CHLORIDE) 10 ML ASDIR IV Sodium Chloride (SODIUM CHLORIDE 0.9%) 500 ML ON CE ONE IV Furosemide (LASIX) 20 MG DAILY PO Pantoprazole Sodium (PROTONIX) 40 MG Q12HR IV Polyethylene Glycol (MIRALAX) 17 GM DAILY PO Sennosides (Senna Lax 8.6 MG TABLET) 8.6 MG MADALYN Y PO Sodium Chloride (SODIUM CHLORIDE) 10 ML ASDIR NV N IV Amitriptyline HCl (ELAVIL) 25 MG BEDTIME PO Mupirocin (BACTROBAN 2% 22 GM OINTMENT) 1 APPLIC BID NASAL Zinc Oxide (ZINC OXIDE 30 GM OINTMENT) 1 APPLIC DAILY TOPICAL Insulin Glargine (Lantus/Semglee) 10 UNIT BEDTIM E SUBQ (DC) Sterile Water (WATER FOR IRRIGATION) DRESSING CH GELACIO ASDIR PRN IRR Insulin Human Lispro (HUMALOG) 0 AC HS SUBQ Dextrose/Water (DEXTROSE 10% IN WATER) 125 ML DIR PRN IV (CKD) Dextrose/Water (DEXTROSE 10% IN WATER) 250 ML DIR PRN IV (CKD) Glucagon (GLUCAGON) 1 MG ASDIR PRN IM Vancomycin HCl (VANCOMYCIN HCL) 1,000 MG Q24H IV Sodium Chloride (SODIUM CHLORIDE 0.9%) 250 ML Hydrocodone Bitart/Acetaminophen (NORCO 10/325) 1 TAB Q4H PRN PRN PO Hydromorphone HCl (DILAUDID) 1 MG Q6H PRN PRN IV Lidocaine (LIDODERM) 1 PATCH DAILY TOPICAL Insulin Human Lispro (HUMALOG) 5 UNIT AC SUBQ Miscellaneous Information (VANCOMYCIN PHARMACY T O DOSE) 1 EACH ASDIR IV (CKD) Heparin Sodium (HEPARIN 5000 UNITS/ML) 5,000 UNI T Q8HR SUBQ Cefepime HCl (MAXIPIME) 1 GM Q6H IV Sodium Chloride (SODIUM CHLORIDE) 10 ML Acetaminophen (TYLENOL) 650 MG Q6H PRN PRN PO Bisacodyl (DULCOLAX) 10 MG DAILY PRN PRN RECTAL Docusate Sodium (COLACE) 100 MG Q12H PRN PRN PO Hydralazine HCl (APRESOLINE) 10 MG Q6H PRN PRN I V Ondansetron HCl (ZOFRAN) 4 MG Q6H PRN PRN IV Functional Progress Functional progress: PT daily note comment: tapan CAVAZOS AGREED TO PT, REPORTED FEELING SLEEPY TODAY , REPORTED NOT SLEEPING WELL. O. PATIENT WORKED ON LE EX IN SUPINE ACROSS ALL PLANES, SLR, HIP ABD, KNEE FLEX, ANKLE PUMPS WITH LLE. WORKE D ON BED MOB ROLLING SIDE TO SIDE WITH USE OF RAIL CGA, ABLE TO MOVE LE TO EOB, REQUIRED ASSIST WITH UPPER TRUNK TO SIT UP EOB WITH CUES TO USE LEFT ELBOW AND WRIST TO PUSH OFF.WORKED ON SLIDING BOARD TRANSFERS, EDUCATED ON SET UP OF SB , PATIENT WORKED ON JM FOR SCOOTING TRANSFERS TO WC. EDUCATED ON WC MOBILITY , TURNS, REACHING BACK ON ARM REST TO PROPEL WC, WORKED ON SIT TO STANDS IN PARALLEL BARS WITH M AX A, WITH CUES TO PUSH OF WC, SHIFT COM WITHIN BASE OF SUPPORT. STOOD 3 X 10 SEC. PATIENT WORKED ON TRANSFERS BACK TO BED WITH MIN A FOR SETUP AND SCOOTING ASSIST. EDUCATED ON O FF LOADING LLE WITH BOOT TO ALLOW PRESSURE ULCER TO HEAL. A. PATIENT IS PROGRESSING WITH PT, REQUIRES [place] NA FOR BED MOB AND TRANSFERS, IMPROVEMENTS WITH WC PROPULSION , DEMONSTRATED DEC ACTIVITY TOLERANCE DUE TO LOW HGB P, CONTINUE WITH POC WITH AN EMPHASIS ON TRANSFERS AND STRENGTHENING Physical Exam General appearance: alert, awake, oriented Psych: alert, normal affect, oriented x 3 HEENT: anicteric, sclera clear Neck: supple, no JVD Cardiovascular: S1/S2, no murmur Respiratory: aerating well, clear bilaterally Abdomen: bowel sounds present, non-distended, so ft, non-tender Skin: no rash, R BKA wrapped healing. 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 X 3, CNII-XII intact Results Findings/Data: Laboratory Tests 09/06 09/05 09/05 09/05 09/05 0536 1910 1623 1149 0615 Chemistry Sodium (134 - 147 mEq/L) 134 Potassium (3.4 - 5.0 mEq/L) 5.0 Chloride (100 - 108 mEq/L) 109 H Carbon Dioxide (21 - 33 mEq/l) 21 Anion Gap (0 - 20) 9 BUN (7 - 18 mg/dL) 24 H Creatinine (0.6 - 1.3 mg/dL) 1.3 Glomerular Filtr Rate (90 - 95) 63.7 L Glucose (70 - 110 mg/dL) 75 POC Glucose (70 - 110 MG/DL) 124 H 117 H 123 H 74 Calcium (8.0 - 10.5 mg/dL) 7.9 L 09/04 1557 1100 0816 0721 Chemistry POC Glucose (70 - 110 MG/DL) 103 128 H 107 99 8 7 09/03 09/03 09/03 09/03 09/03 1944 1622 1233 1143 1116 Chemistry POC Glucose (70 - 110 MG/DL) 124 H 135 H 136 H 50 L 44 L Laboratory Tests 09/05 09/04 09/04 0615 1031 0540 Hematology Hgb (12.5 - 16.9 g/dL) 7.1 L 7.7 L 6.8 L Hct (37.5 - 50.7 %) 22.7 L 23.7 L 21.2 L Laboratory Tests 09/04 09/03 1630 1836 Toxicology Vancomycin Peak (30 - 40 MCG/ML) 27.4 L Vancomycin Trough (10.0 - 20.0 mcg/mL) 12.8 Microbiology Date/Time Procedure - Status Source Growth 09/04 1739 Occult Blood - COMP STOOL Recent Impressions: RADIOLOGY - XR ABDOMEN 1V (KUB) 09/04 1648 Report Impression - Status: SIGNED Entered: 09/04/2022 1757 IMPRESSION: Benign appearance of the abdomen. Impression By: [email or web address] - Hakeem Soto ULTRASOUND - [facility] VEIN UNI/LTD 09/05 1146 Report Impression - Status: SIGNED Entered: 09/05/2022 1333 IMPRESSION: 1. No evidence of deep vein thrombosis. 2. Complex heterogeneous hypoechoic fluid collec tion in the left calf region measuring 8.4 x 2.8 x 2.5 cm; there is no internal vascularity or peripheral hyperemia. May represe nt a hematoma. Impression By: [email or web address] - Mert Ga M.D. RADIOLOGY - XR CHEST 1 V 09/05 1432 Report Impression - Status: SIGNED Entered: 09/05/2022 1515 IMPRESSION: Minimal bibasilar pulmonary opacities Impression By: Yared Campbellor, M.D . Diagnosis, Assessment Plan Problem List/A P: 1. Gangrene of right foot 2. 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 MRSA bacteremia 4. Cellulitis of foot, right 5. DKA (diabetic ketoacidosis) 6. Hyperglycemia 7. ERIKA (acute kidney injury) 8. Postoperative pain 9. Acute anemia 10. Prostate abscess 11. 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 Leroy Significant impairment in self-care, ADLs and fu nctional mobility Impaired mobility and gait Acute postoperative pain right BKA, left foot an d ankle Diabetic polyneuropathy DKA, DM 2, poorly controlled, A1c greater than 1 4 PAD MRSA bacteremia/sepsis-treated on acute ERIKA Severe hyponatremia-resolved HTN Acute on chronic anemia requiring multiple trans fusions, possible GI bleed Left calf hematoma Edema and clinical arthritis left ankle Early decubitus to left heel/DTI dorsal left mid foot Prostatic abscess 08/26: S/p transrectal ultrasound aspiration of ab scess and transurethral resection of prostate and unroofing of abscess Echo: EF 55-59%, grade 1 diastolic dysfunction 09/02: JIMENA negative for vegetation MRSA OF NARES Left calf hematoma Plan: -PLOF: Independent with transfers and gait -Amputee rehab program -Continue PT and OT -15/12 rehabilitation nursing care. -Case management for safe discharge planning. -Decubitus prevention -Early decubitus to left heel/DTI dorsal left mi dfoot-zinc oxide to the foot, foam, offloading, podiatry managing -DVT prophylaxis-subcutaneous heparin -Strict fall and safety precautions -Work on bed mobility, transfer training, ADLs, pre-gait and gait exercises -Increase endurance and strength -Monitor pain with therapies -OOB to chair -Monitor p.o. intake and nut rition, albumin 1.3, prealbumin less than 5, dietary consultation, protein supplements to promote hea ling -Continue antibiotics per ID -Tight glycemia control- endocrine on board, ins ulin adjustments -Endocrinology, ID, podiatry, cardiology, IM con sulted -Pain management adjusting pain medications -Labs reviewed -Anemia, patient required multiple units of PRBC s on acute, FOBT positive -IV Protonix-consult GI-seri al H H-no evidence of gross bleeding-discussed with Dr. Trinidad -Constipation-abdominal cnjpynun-MDE-zizakm-CW S enokot and MiraLAX, DSP -Right XYB-nyxqnjv-sbkhpncg resolved, dr martinez changed cxmvz-gyprwqe-vpbqroso NESTOR-TECH -MRSA OF NARES on Bactroban protocol -LLE edema-venous Doppler wi th complex heterogeneous hypoechoic fluid collection in the left calf region mitzi uring 8.4, 2.8, 2.5 cm suggestive of hematoma. Hold Lasix x3 days. Oralia wrap calf -Generalized edema-some shor tness of breath and abdominal distention-cardiology gave a dose of IV Lasix-monitor urine output, da jaz weights -Chest x-ray with minimal basilar pulmonary opac ities -Anemia-transfused 2 units of PRBC on 09/05 -Advance therapies as tolerated-discusse d treatment plan with patient and -Patient progressing but limited due to weakness requiring min assist with transfers with standby assist. Continue plan of care with emphasis on sliding board transfers. Total time 33 minutes greater than 50% of the ti me spent examining patient, discussing probable left luciana f hematoma per ultrasound, anemia, possible GI bleed , transfusion, edema, amputation rehab, rehab pl an of care, goals, therapies, progress, labs, medications. EMR and MAR is revi ewed. All questions answered Consultants: cardiology, endocrinology, hospital ist, infectious disease, podiatry Rehab attestation: Face to face exam completed. Treatment plan disc ussed with patient. Meets continued stay criteria. Agree with interdiscipl inary treatment plan. Mj Vences 09/06/22 0857: Attestations Physician Attestation Agree w/findings plan: Patient seen and examined. Agree with the geovany gs and plan as documented by DAVID Tran LLE edema- hematoma on US-hold heparin, oralia wrap s-monitor. ?GIB-appreciate GI input at 0858 Electronically Signed by Guero Candelaria on 0 09/06/22 at 2017 RPT #:[id number] END OF REPORT 2022-09-05 18:58:00-00:00 [facility] Podiatry Progress Note REPORT#:[id number] REPORT STATUS: Signed DATE:09/05/22 TIME: 1857 PATIENT: KARMA ROWLAND UNIT #: [id number] ROOM/BED: [place] [id number] : 63 AGE: 56 SEX: M ATTEND: Fredy Vences MD ADM AUTHOR: Liam PedersenM * ALL edits or amendments must be made on the [employer] document * Subjective Chief complaint: left heel ulcer. left ankle pain Patient reports: no chest pa in, no cough, no dizziness, no heartburn, no itching Comments: doing well with therapy Objective General VS: Last Documented: Result Date Time Pulse Ox 96 09/05 1848 B/P 151/75 09/05 1848 B/P Mean 100.6 09/05 184 Pulse 91 09/05 1848 Temp 36.3 09/05 1644 Resp 17 09/05 1615 O2 Delivery Room air 09/05 1443 PATIENT WEIGHT: Weight (lb): 165 Weight (oz): 5.55 Weight (kg): 75.000 Medications: Active Meds + DC'd Last 24 Hrs Insulin Glargine (Lantus/Semglee) 7 UNIT BEDTIME SUBQ Furosemide (LASIX 20MG INJ) 20 MG BLOOD-DOSE BET WEEN IV (CKD) Sodium Chloride (SODIUM CHLORIDE) 10 ML ASDIR IV Sodium Chloride (SODIUM CHLORIDE 0.9%) 500 ML ON CE ONE IV Furosemide (LASIX) 20 MG DAILY PO Pantoprazole Sodium (PROTONIX) 40 MG Q12HR IV Polyethylene Glycol (MIRALAX) 17 GM DAILY PO Sennosides (Senna Lax 8.6 MG TABLET) 8.6 MG MADALYN Y PO Sodium Chloride (SODIUM CHLORIDE) 10 ML ASDIR NV N IV Pantoprazole (PROTONIX) 40 MG DAILY 0600 PO (DC) Amitriptyline HCl (ELAVIL) 25 MG BEDTIME PO Mupirocin (BACTROBAN 2% 22 GM OINTMENT) 1 APPLIC BID NASAL Zinc Oxide (ZINC OXIDE 30 GM OINTMENT) 1 APPLIC DAILY TOPICAL Insulin Glargine (Lantus/Semglee) 10 UNIT BEDTIM E SUBQ (DC) Sterile Water (WATER FOR IRRIGATION) DRESSING CH GELACIO ASDIR PRN IRR Insulin Human Lispro (HUMALOG) 0 AC HS SUBQ Dextrose/Water (DEXTROSE 10% IN WATER) 125 ML DIR PRN IV (CKD) Dextrose/Water (DEXTROSE 10% IN WATER) 250 ML DIR PRN IV (CKD) Glucagon (GLUCAGON) 1 MG ASDIR PRN IM Vancomycin HCl (VANCOMYCIN HCL) 1,000 MG Q24H IV Sodium Chloride (SODIUM CHLORIDE 0.9%) 250 ML Hydrocodone Bitart/Acetaminophen (NORCO 10/325) 1 TAB Q4H PRN PRN PO Hydromorphone HCl (DILAUDID) 1 MG Q6H PRN PRN IV Lidocaine (LIDODERM) 1 PATCH DAILY TOPICAL Insulin Human Lispro (HUMALOG) 5 UNIT AC SUBQ Miscellaneous Information (VANCOMYCIN PHARMACY T O DOSE) 1 EACH ASDIR IV (CKD) Heparin Sodium (HEPARIN 5000 UNITS/ML) 5,000 UNI T Q8HR SUBQ Cefepime HCl (MAXIPIME) 1 GM Q6H IV Sodium Chloride (SODIUM CHLORIDE) 10 ML Acetaminophen (TYLENOL) 650 MG Q6H PRN PRN PO Bisacodyl (DULCOLAX) 10 MG DAILY PRN PRN RECTAL Docusate Sodium (COLACE) 100 MG Q12H PRN PRN PO Hydralazine HCl (APRESOLINE) 10 MG Q6H PRN PRN I V Ondansetron HCl (ZOFRAN) 4 MG Q6H PRN PRN IV I O: 24 hour I O ending at 0700: 14 0700 09/04 1900 Intake Total 250 Output Total 1000 900 Balance -750 -900 Intake, Oral 250 Number 0 Incontinent Voids Number Voids 0 Output, Urine 1000 900 Dietitian nutrition assessment The data set between the solid lines has been im ported from the dietitian's assessment. BMI Calculated: 26.7 Nutrition related diagnosis: Nutrition diagnosis details: Nutrition problem: Altered nutrition labs Nutrition etiology: DM Nutrition signs and symptoms: HYPER/HYPOGLYCEMIA , A1C >14 Nutrition prescription: CONTINUE DM DIET Dietitian name: Klaus Kaiser, DIET Assessment completed: 09/03/22 Physical Exam General appearance: alert, awake, oriented Wound/incision: Location: left foot Site condition: dp/pt 2/4 left. light touch dec reased left foot. ulcer starting at posterior left heel. eccymosis noted . early likely stage 1. left ankle has edema. pain with aggressive ROM left a nkle. LE vascular pulse assess: 2+ L posterior tibialis, 2+ L dorsalis pedis Considered stroke alert: no Ulcer: Location: DTI dorsal left midfoot Results Findings/Data: Laboratory Tests: 09/05 09/05 09/05 09/04 1623 1149 0615 2042 Chemistry Sodium (134 - 147 mEq/L) 134 Potassium (3.4 - 5.0 mEq/L) 5.0 Chloride (100 - 108 mEq/L) 109 H Carbon Dioxide (21 - 33 mEq/l) 21 Anion Gap (0 - 20) 9 BUN (7 - 18 mg/dL) 24 H Creatinine (0.6 - 1.3 mg/dL) 1.3 Glomerular Filtr Rate (90 - 95) 63.7 L Glucose (70 - 110 mg/dL) 75 POC Glucose (70 - 110 MG/DL) 123 H 74 103 Calcium (8.0 - 10.5 mg/dL) 7.9 L Hematology Hgb (12.5 - 16.9 g/dL) 7.1 L Hct (37.5 - 50.7 %) 22.7 L Recent Impressions: ULTRASOUND - DUP VEIN UNI/LTD 09/05 1146 Report Impression - Status: SIGNED Entered: 09/05/2022 6283 IMPRESSION: 1. No evidence of deep vein thrombosis. 2. Complex heterogeneous hypoechoic fluid collec tion in the left calf region measuring 8.4 x 2.8 x 2.5 cm; there is no internal vascularity or peripheral hyperemia. May represe nt a hematoma. Impression By: TipABJames - Mert Ga M.D. RADIOLOGY - XR CHEST 1 V 09/05 1432 Report Impression - Status: SIGNED Entered: 09/05/20221514 IMPRESSION: Minimal bibasilar pulmonary opacities Impression By: Hakeem Jacobo Diagnosis, Assessment Plan Free Text A P: DM with neuropathy early decub ulcer left heel OA/edema left ankle DTI dorsal left midfoot zinc oxide to foot and heel foam to heel on IV abx offloading boot oralia wraps to ankle Consultants: cardiology, endocrinology, hospital ist, infectious disease, podiatry Electronically Signed by Liam Pedersen DPM on 0 09/05/22 at 1859 RPT #:[id number] END OF REPORT 2022-09-05 15:15:00-00:00 [facility] REPORT#:[id number] REPORT STATUS: Signed DATE:09/05/22 TIME: 151 PATIENT: KARMA ROWLAND UNIT #: [id number] ROOM/BED: [place] [id number] : 63 AGE: 56 SEX: M ATTEND: Mj Vences MD ADM AUTHOR: Braxton Chapin MD * ALL edits or amendments must be made on the [employer]/computer document * Subjective Patient reports: no complaints Objective General VS: Last Documented: Result Date Time Pulse Ox 96 09/05 1443 B/P 156/75 09/05 144 B/P Mean 102.0 09/05 144 O2 Delivery Room air 09/05 144 Temp 36.9 09/05 144 Pulse 93 09/05 144 Resp 19 09/05 144 PATIENT WEIGHT: Weight (lb): 165 Weight (oz): 5.55 Weight (kg): 75.000 Medications: Active Meds + DC'd Last 24 Hrs Furosemide (LASIX 20MG INJ) 20 MG BLOOD-DOSE BET WEEN IV (CKD) Sodium Chloride (SODIUM CHLORIDE) 10 ML ASDIR IV Sodium Chloride (SODIUM CHLORIDE 0.9%) 500 ML ON CE ONE IV Furosemide (LASIX) 20 MG DAILY PO Pantoprazole Sodium (PROTONIX) 40 MG Q12HR IV Polyethylene Glycol (MIRALAX) 17 GM DAILY PO Sennosides (Senna Lax 8.6 MG TABLET) 8.6 MG MADALYN Y PO Sodium Chloride (SODIUM CHLORIDE) 10 ML ASDIR NV N IV Pantoprazole (PROTONIX) 40 MG DAILY 0600 PO (DC) Amitriptyline HCl (ELAVIL) 25 MG BEDTIME PO Mupirocin (BACTROBAN 2% 22 GM OINTMENT) 1 APPLIC BID NASAL Furosemide (LASIX 40 mg/4 mL INJECTION) 40 MG ON CE ONE IV (DC) Bisacodyl (DULCOLAX) 10 MG ONCE ONE RECTAL (DC) Zinc Oxide (ZINC OXIDE 30 GM OINTMENT) 1 APPLIC DAILY TOPICAL Insulin Glargine (Lantus/Semglee) 10 UNIT BEDTIM E SUBQ Sterile Water (WATER FOR IRRIGATION) DRESSING CH GELACIO ASDIR PRN IRR Insulin Human Lispro (HUMALOG) 0 AC HS SUBQ Dextrose/Water (DEXTROSE 10% IN WATER) 125 ML DIR PRN IV (CKD) Dextrose/Water (DEXTROSE 10% IN WATER) 250 ML DIR PRN IV (CKD) Glucagon (GLUCAGON) 1 MG ASDIR PRN IM Vancomycin HCl (VANCOMYCIN HCL) 1,000 MG Q24H IV Sodium Chloride (SODIUM CHLORIDE 0.9%) 250 ML Hydrocodone Bitart/Acetaminophen (NORCO 10/325) 1 TAB Q4H PRN PRN PO Hydromorphone HCl (DILAUDID) 1 MG Q6H PRN PRN IV Lidocaine (LIDODERM) 1 PATCH DAILY TOPICAL Insulin Human Lispro (HUMALOG) 5 UNIT AC SUBQ Miscellaneous Information (VANCOMYCIN PHARMACY T O DOSE) 1 EACH ASDIR IV (CKD) Heparin Sodium (HEPARIN 5000 UNITS/ML) 5,000 UNI T Q8HR SUBQ Cefepime HCl (MAXIPIME) 1 GM Q6H IV Sodium Chloride (SODIUM CHLORIDE) 10 ML Acetaminophen (TYLENOL) 650 MG Q6H PRN PRN PO Bisacodyl (DULCOLAX) 10 MG DAILY PRN PRN RECTAL Dextrose/Water (DEXTROSE 10% IN WATER) 125 ML DIR PRN IV (DC) Dextrose/Water (DEXTROSE 10% IN WATER) 250 ML DIR PRN IV (DC) Docusate Sodium (COLACE) 100 MG Q12H PRN PRN PO Glucagon (GLUCAGON) 1 MG ASDIR PRN IM (DC) Hydralazine HCl (APRESOLINE) 10 MG Q6H PRN PRN I V Ondansetron HCl (ZOFRAN) 4 MG Q6H PRN PRN IV Physical Exam General appearance: alert, awake Diagnosis, Assessment Plan Hospital course to date: Laboratory Tests: 09/05 09/05 09/04 09/04 09/04 1149 0615 2042 1630 1557 Chemistry Sodium (134 - 147 mEq/L) 134 Potassium (3.4 - 5.0 mEq/L) 5.0 Chloride (100 - 108 mEq/L) 109 H Carbon Dioxide (21 - 33 mEq/l) 21 Anion Gap (0 - 20) 9 BUN (7 - 18 mg/dL) 24 H Creatinine (0.6 - 1.3 mg/dL) 1.3 Glomerular Filtr Rate (90 - 95) 63.7 L Glucose (70 - 110 mg/dL) 75 POC Glucose (70 - 110 MG/DL) 74 103 128 H Calcium (8.0 - 10.5 mg/dL) 7.9 L Hematology Hgb (12.5 - 16.9 g/dL) 7.1 L Hct (37.5 - 50.7 %) 22.7 L Toxicology Vancomycin Trough (10.0 - 20.0 mcg/mL) 12.8 Microbiology: Date/Time Procedure - Status Source Growth 09/04 1739 Occult Blood - COMP STOOL Recent Impressions: RADIOLOGY - XR ABDOMEN 1V (KUB) 09/04 1648 Report Impression - Status: SIGNED Entered: 09/04/2022 1757 IMPRESSION: Benign appearance of the abdomen. Impression By: [email or web address] - Roger Parra M.D . ULTRASOUND - [facility] VEIN UNI/LTD 09/05 1146 Report Impression - Status: SIGNED Entered: 09/05/2022 1333 IMPRESSION: 1. No evidence of deep vein thrombosis. 2. Complex heterogeneous hypoechoic fluid collec tion in the left calf region measuring 8.4 x 2.8 x 2.5 cm; there is no internal vascularity or peripheral hyperemia. May represe nt a hematoma. Impression By: TipABJames - Mert Ga M.D. RADIOLOGY - XR CHEST 1 V 09/05 1432 Report Impression - Status: SIGNED Entered: 09/05/2022 1515 IMPRESSION: Minimal bibasilar pulmonary opacities Impression By: Hakeem Jacobo Laboratory Tests: 09/04 09/04 09/04 09/04 09/04 1630 1557 1100 1031 0816 Chemistry POC Glucose (70 - 110 MG/DL) 128 H 107 99 Hematology Hgb (12.5 - 16.9 g/dL) 7.7 L Hct (37.5 - 50.7 %) 23.7 L Toxicology Vancomycin Trough (10.0 - 20.0 mcg/mL) 12.8 09/04 09/04 09/03 09/03 0721 0540 1944 1836 Chemistry POC Glucose (70 - 110 MG/DL) 87 124 H Hematology Hgb (12.5 - 16.9 g/dL) 6.8 L Hct (37.5 - 50.7 %) 21.2 L Toxicology Vancomycin Peak (30 - 40 MCG/ML) 27.4 L Microbiology: Date/Time Procedure - Status Source Growth 09/04 1037 Occult Blood - COLB STOOL 1.Diabetes mellitus type 2 uncontrolled complica tions. 2. 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 4. Sepsis 5. Prostate abscess. 6. Anemia Blood sugar 75-74 mg/dL. Adjust insulin dose. PT and OT. Electronically Signed by Braxton Chapin MD on at 1516 RPT #:[id number] END OF REPORT 2022-09-05 15:04:00-00:[address] [facility] ([facility]) Pain Management Progress Note REPORT#:[id number] REPORT STATUS: Signed DATE:09/05/22 TIME: 1504 PATIENT: KARMA ROWLAND UNIT #: [id number] ROOM/BED: [place] [address] : 63 AGE: 56 SEX: M ATTEND: Fredy Vences MD ADM AUTHOR: Ben Klein * ALL edits or amendments must be made on the [employer]/computer document * Ben Klein 09/05/22 1504: Subjective Chief complaint: Patient seen and examined. Chart/MAR reviewed. Patient is doing well. Reports right BKA discomf ort is okay with current medications. He is alternating oral and IV. Mira ent also slept better. Last night and neuropathy symptoms are improved after starting amitriptyline. Patient being seen for Acute postoperative pain, right foot and ankle gangrene, requiring BKA, Constipation Patient is still requiring medications to help w ith managing current problems. Patient is requiring IV narcotics to help manage breakthrough pain No fever/chills, chest pain, orthopnea, nausea/v omiting, pruritus, or hallucinations. 14 point ROS undertaken unremarkable except as n oted Objective General VS/I O: Vital Signs Date Temp Pulse Resp B/P B/P Mean Pulse Ox FiO2 09/04-09/05 36.5-37.1 84-93 13-19 139-167/67-80 91.0-108.7 96-99 Last Documented: Result Date Time Pulse Ox 96 09/05 1443 B/P 156/75 09/05 1443 B/P Mean 102.0 09/05 1443 O2 Delivery Room air 09/05 1443 Temp 36.9 09/05 1443 Pulse 93 09/05 1443 Resp 19 09/05 1443 24 hour I O ending at 0700: 09/05 0700 09/04 1900 Intake Total 250 Output Total 1000 900 Balance -750 -900 Intake, Oral 250 Number 0 Incontinent Voids Number Voids 0 Output, Urine 1000 900 PATIENT WEIGHT: Weight (lb): 165 Weight (oz): 5.55 Weight (kg): 75.000 Medications: Active Meds + DC'd Last 24 Hrs Furosemide (LASIX 20MG INJ) 20 MG BLOOD-DOSE BET WEEN IV (CKD) Sodium Chloride (SODIUM CHLORIDE) 10 ML ASDIR IV Sodium Chloride (SODIUM CHLORIDE 0.9%) 500 ML ON CE ONE IV Furosemide (LASIX) 20 MG DAILY PO Pantoprazole Sodium (PROTONIX) 40 MG Q12HR IV Polyethylene Glycol (MIRALAX) 17 GM DAILY PO Sennosides (Senna Lax 8.6 MG TABLET) 8.6 MG MADALYN Y PO Sodium Chloride (SODIUM CHLORIDE) 10 ML ASDIR NV N IV Pantoprazole (PROTONIX) 40 MG DAILY 0600 PO (DC) Amitriptyline HCl (ELAVIL) 25 MG BEDTIME PO Mupirocin (BACTROBAN 2% 22 GM OINTMENT) 1 APPLIC BID NASAL Furosemide (LASIX 40 mg/4 mL INJECTION) 40 MG ON CE ONE IV (DC) Bisacodyl (DULCOLAX) 10 MG ONCE ONE RECTAL (DC) Zinc Oxide (ZINC OXIDE 30 GM OINTMENT) 1 APPLIC DAILY TOPICAL Insulin Glargine (Lantus/Semglee) 10 UNIT BEDTIM E SUBQ Sterile Water (WATER FOR IRRIGATION) DRESSING CH GELACIO ASDIR PRN IRR Insulin Human Lispro (HUMALOG) 0 AC HS SUBQ Dextrose/Water (DEXTROSE 10% IN WATER) 125 ML DIR PRN IV (CKD) Dextrose/Water (DEXTROSE 10% IN WATER) 250 ML DIR PRN IV (CKD) Glucagon (GLUCAGON) 1 MG ASDIR PRN IM Vancomycin HCl (VANCOMYCIN HCL) 1,000 MG Q24H IV Sodium Chloride (SODIUM CHLORIDE 0.9%) 250 ML Hydrocodone Bitart/Acetaminophen (NORCO 10/325) 1 TAB Q4H PRN PRN PO Hydromorphone HCl (DILAUDID) 1 MG Q6H PRN PRN IV Lidocaine (LIDODERM) 1 PATCH DAILY TOPICAL Insulin Human Lispro (HUMALOG) 5 UNIT AC SUBQ Miscellaneous Information (VANCOMYCIN PHARMACY T O DOSE) 1 EACH ASDIR IV (CKD) Heparin Sodium (HEPARIN 5000 UNITS/ML) 5,000 UNI T Q8HR SUBQ Cefepime HCl (MAXIPIME) 1 GM Q6H IV Sodium Chloride (SODIUM CHLORIDE) 10 ML Acetaminophen (TYLENOL) 650 MG Q6H PRN PRN PO Bisacodyl (DULCOLAX) 10 MG DAILY PRN PRN RECTAL Dextrose/Water (DEXTROSE 10% IN WATER) 125 ML DIR PRN IV (DC) Dextrose/Water (DEXTROSE 10% IN WATER) 250 ML DIR PRN IV (DC) Docusate Sodium (COLACE) 100 MG Q12H PRN PRN PO Glucagon (GLUCAGON) 1 MG ASDIR PRN IM (DC) Hydralazine HCl (APRESOLINE) 10 MG Q6H PRN PRN I V Ondansetron HCl (ZOFRAN) 4 MG Q6H PRN PRN IV Physical Exam General appearance: alert, awake, oriented, no a cute distress Head/eyes: atraumatic, EOMI, normocephalic, norm al conjunctiva/sclera, PERRLA ENT: normal nose, normal pharynx, moist mucosal membranes Neck: full range of motion, no lymphadenopathy, supple/no meningismus Cardiovascular: regular rate rhythm Respiratory: clear to auscultation, no distress Abdomen: soft, non-tender, no distention , active bowel sounds in all quarants. 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, no sensory deficit s, CNII-XII grossly intact Considered stroke alert: no Skin: dry, intact, no rash Results Findings/data: Laboratory Tests: 09/05 09/05 09/04 09/04 09/04 1149 0615 2042 1630 1557 Chemistry Sodium (134 - 147 mEq/L) 134 Potassium (3.4 - 5.0 mEq/L) 5.0 Chloride (100 - 108 mEq/L) 109 H Carbon Dioxide (21 - 33 mEq/l) 21 Anion Gap (0 - 20) 9 BUN (7 - 18 mg/dL) 24 H Creatinine (0.6 - 1.3 mg/dL) 1.3 Glomerular Filtr Rate (90 - 95) 63.7 L Glucose (70 - 110 mg/dL) 75 POC Glucose (70 - 110 MG/DL) 74 103 128 H Calcium (8.0 - 10.5 mg/dL) 7.9 L Hematology Hgb (12.5 - 16.9 g/dL) 7.1 L Hct (37.5 - 50.7 %) 22.7 L Toxicology Vancomycin Trough (10.0 - 20.0 mcg/mL) 12.8 Microbiology: Date/Time Procedure - Status Source Growth 09/04 173 Occult Blood - COMP STOOL Recent Impressions: RADIOLOGY - XR ABDOMEN 1V (KUB) 09/04 1648 Report Impression - Status: SIGNED Entered: 09/04/2022 570 IMPRESSION: Benign appearance of the abdomen. Impression By: [email or web address] - Hakeem Soto ULTRASOUND - DUP VEIN UNI/LTD 09/05 1146 Report Impression - Status: SIGNED Entered: 09/05/2022 1333 IMPRESSION: 1. No evidence of deep vein thrombosis. 2. Complex heterogeneous hypoechoic fluid collec tion in the left calf region measuring 8.4 x 2.8 x 2.5 cm; there is no internal vascularity or peripheral hyperemia. May represe nt a hematoma. Impression By: [email or web address] - Mert Ga M.D. Diagnosis, Assessment Plan Free text A P: A/P: Patient is a 56 year old male who presents with: Past Medical History: Prostate abscess, right fo ot foot and ankle gangrene, diabetes, hypertension, hyperlipidemia Past Surgical History: TURP, right BKA Family History: Noncontributory Social History: Denies tobacco, alcohol, or drug use Allergies: NKDA Recent prostate abscess -Status post TURP with unroofing of abscess -IV antibiotics with vancomycin until 09-24-2022 Acute postoperative pain, right foot and ankle g angrene, requiring BKA -Patient is at risk for further amputations or l oss of limb due to comorbid conditions -Status post right BKA 08/28/2022 -Tylenol 650 mg p.o. every 6 hours as needed ofelia n scale 1 3 -Check 10/325 1 tablet p.o. every 4 hours as nee ded pain scale 4 10 -Dilaudid 1 mg IV every 6 ho urs as needed pain scale 7 10, second line therapy- patient will require close monitoring while usin g IV narcotics for any deleterious effect -Lidoderm patch to left ankle daily -IV antibiotics with vancomycin until 09-24-2022 -Local wound care -manageable Diabetic peripheral neuropathy -patient is based on adrenal insufficiency -amitriptyline 25mg PO QHS - Uncontrolled diabetes, diabetes with complicatio ns, recent DKA -Hemoglobin A1c 13.4 -Recent right foot and ankle gangrene -Insulin sliding scale, FSBS, good glycemic cont rol Hypertension -We will monitor hypertension and tachycardia du e to pain, and hypotension as well as bradycardia secondary over sedation with narcotics -Hydralazine as needed - Elevated LFTs -08/20/22-AST 51, ALT 22 -09/03/2022-AST 15, ALT 7 -Patient will require close monitoring since he is using narcotics with Tylenol Impaired functional mobility, balance, gait, and endurance -PT/OT Constipation -We will monitor while utilizing opioid narcotic medications. -Adequate fluid intake also discussed. -Colace 100 mg p.o. twice daily as needed -Dulcolax 10 mg rectally daily as needed -manageable Patient has failed conservative medical therapy. Patient will require monitoring while utilize na rcotic medications for any adverse effects, and will adjust as needed Plan of care discussed with patient and nurse All diagnostics of last 24 hours been reviewed. Risks versus benefits of opioid medications were reviewed to include, but not limited to respiratory depression, accid ental overdose, altered mental status, sudden , constipation which could result in bowel obstruction, seizures, withdrawal, dependency addiction, risk for falls . Case discussed with Dr Ng whom agrees. Thank you for the consultation. [place] [facility] NURSE: -database searched, no information found Kingsley Ng 09/23/22 0654: Attestations Physician Attestation Agree w/findings plan: The patient was seen and exa mined by Ben Klein. I personally developed the care plan, which was continued by the mid-level provider. I was immediately available. at 1507 Electronically Signed by Kingsley Ng MD on 3 at 0657 RPT #:[id number] END OF REPORT 2022-09-05 14:26:00-00:00 HC[facility] Consultation Note REPORT#:[id number] REPORT STATUS: Signed DATE:09/05/22 TIME: 1425 PATIENT: KARMA ROWLAND UNIT #: [id number] ROOM/BED: [place] [address] : 61 AGE: 56 SEX: M ATTEND: Fredy Vences MD ADM AUTHOR: Tiara Tillman CLAY MILLER * ALL edits or amendments must be made on the el [employer]/computer document * Tiara Tillman 09/05/22 1426: History of Present Illness Reason for consult: 1. Positive FOBT 2. Acute on chronic anemia with pRBCS transfused on 08/23, 08/26, and 08/31 HPI: Patient is a 56-year-old male with history of di abetes mellitus type 2 and hypertension who was initially admitted for alte red mental status and right- sided foot infection. 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 The p atient is anemic with current Hgb 7.1. He has received a total of 3 un its pRBCs during this hospitalization. KUB on 09/04 was negative for acute GI process. T he patient denies overt GIB, dark tarry stools, nausea, a bdominal pain, or vomiting. He has never had EGD or colonoscopy. History - Adult longitudinal Additional medical history: DM 2 since age 33 DM neuropathy HTN hyperlipidemia Additional surgical history: as above Additional family history: reviewed and non contributory Alcohol use: Denies EtOH use Drug use: Denies recreational drugs Smoking status for patients 13 years old or olde r: Never Smoker Other social history: [place] resident, [place] support Allergies: Coded Allergies: No Known Allergies (03/23/11) Review of Systems Constitutional: Denies: chills, fever. Skin: Denies: laceration, rash. Allergy/Immun: Denies: allergic reaction, anaphylaxis. Eyes: Denies: redness, discharge. ENT: Denies: mouth pain, sinus problem. GI: Denies: abdominal pain, hematemesis, hematochezi a, melena, nausea, vomiting. Objective Physical Exam VS/I O: Last Documented: Result Date Time Pulse Ox 97 09/05 741 B/P 148/70 09/05 741 B/P Mean 96.2 09/05 741 O2 Delivery Room air 09/05 741 Temp 37.1 09/05 741 Pulse 89 09/05 741 Resp 18 09/05 741 24 hour I O ending at 0700: 09/05 0700 09/04 1900 Intake Total 250 Output Total 1000 900 Balance -750 -900 Intake, Oral 250 Number 0 Incontinent Voids Number Voids 0 Output, Urine 1000 900 PATIENT WEIGHT: Weight (lb): 165 Weight (oz): 5.55 Weight (kg): 75.000 Medications: Active Meds + DC'd Last 24 Hrs Furosemide (LASIX 20MG INJ) 20 MG BLOOD-DOSE BET WEEN IV (CKD) Sodium Chloride (SODIUM CHLORIDE) 10 ML ASDIR IV Sodium Chloride (SODIUM CHLORIDE 0.9%) 500 ML ON CE ONE IV Furosemide (LASIX) 20 MG DAILY PO Pantoprazole Sodium (PROTONIX) 40 MG Q12HR IV Polyethylene Glycol (MIRALAX) 17 GM DAILY PO Sennosides (Senna Lax 8.6 MG TABLET) 8.6 MG MADALYN Y PO Sodium Chloride (SODIUM CHLORIDE) 10 ML ASDIR NV N IV Pantoprazole (PROTONIX) 40 MG DAILY 0600 PO (DC) Amitriptyline HCl (ELAVIL) 25 MG BEDTIME PO Mupirocin (BACTROBAN 2% 22 GM OINTMENT) 1 APPLIC BID NASAL Furosemide (LASIX 40 mg/4 mL INJECTION) 40 MG ON CE ONE IV (DC) Bisacodyl (DULCOLAX) 10 MG ONCE ONE RECTAL (DC) Zinc Oxide (ZINC OXIDE 30 GM OINTMENT) 1 APPLIC DAILY TOPICAL Insulin Glargine (Lantus/Semglee) 10 UNIT BEDTIM E SUBQ Sterile Water (WATER FOR IRRIGATION) DRESSING CH GELACIO ASDIR PRN IRR Insulin Human Lispro (HUMALOG) 0 AC HS SUBQ Dextrose/Water (DEXTROSE 10% IN WATER) 125 ML DIR PRN IV (CKD) Dextrose/Water (DEXTROSE 10% IN WATER) 250 ML DIR PRN IV (CKD) Glucagon (GLUCAGON) 1 MG ASDIR PRN IM Vancomycin HCl (VANCOMYCIN HCL) 1,000 MG Q24H IV Sodium Chloride (SODIUM CHLORIDE 0.9%) 250 ML Hydrocodone Bitart/Acetaminophen (NORCO 10/325) 1 TAB Q4H PRN PRN PO Hydromorphone HCl (DILAUDID) 1 MG Q6H PRN PRN IV Lidocaine (LIDODERM) 1 PATCH DAILY TOPICAL Insulin Human Lispro (HUMALOG) 5 UNIT AC SUBQ Miscellaneous Information (VANCOMYCIN PHARMACY T O DOSE) 1 EACH ASDIR IV (CKD) Heparin Sodium (HEPARIN 5000 UNITS/ML) 5,000 UNI T Q8HR SUBQ Cefepime HCl (MAXIPIME) 1 GM Q6H IV Sodium Chloride (SODIUM CHLORIDE) 10 ML Acetaminophen (TYLENOL) 650 MG Q6H PRN PRN PO Bisacodyl (DULCOLAX) 10 MG DAILY PRN PRN RECTAL Dextrose/Water (DEXTROSE 10% IN WATER) 125 ML DIR PRN IV (DC) Dextrose/Water (DEXTROSE 10% IN WATER) 250 ML DIR PRN IV (DC) Docusate Sodium (COLACE) 100 MG Q12H PRN PRN PO Glucagon (GLUCAGON) 1 MG ASDIR PRN IM (DC) Hydralazine HCl (APRESOLINE) 10 MG Q6H PRN PRN I V Ondansetron HCl (ZOFRAN) 4 MG Q6H PRN PRN IV General appearance: alert, awake, oriented HEENT: atraumatic, normocephalic Neck: full range of motion, non-tender Respiratory: symmetric expansion, no distress Abdomen: non-tender, normal bowel sounds, soft, no distention, no guarding Extremities: right BKA Considered stroke alert: no Skin: dry Results Findings/Data: Laboratory Tests 09/05/22 0615: [Embedded Image Not Available] Laboratory Tests 09/05 09/05 09/04 09/04 1149 0615 2042 1557 Chemistry Sodium (134 - 147 mEq/L) 134 Potassium (3.4 - 5.0 mEq/L) 5.0 Chloride (100 - 108 mEq/L) 109 H Carbon Dioxide (21 - 33 mEq/l) 21 Anion Gap (0 - 20) 9 BUN (7 - 18 mg/dL) 24 H Creatinine (0.6 - 1.3 mg/dL) 1.3 Glomerular Filtr Rate (90 - 95) 63.7 L Glucose (70 - 110 mg/dL) 75 POC Glucose (70 - 110 MG/DL) 74 103 128 H Calcium (8.0 - 10.5 mg/dL) 7.9 L Laboratory Tests 09/05 0615 Hematology Hgb (12.5 - 16.9 g/dL) 7.1 L Hct (37.5 - 50.7 %) 22.7 L Laboratory Tests 09/04 1630 Toxicology Vancomycin Trough (10.0 - 20.0 mcg/mL) 12.8 Microbiology Date/Time Procedure - Status Source Growth 09/04 1739 Occult Blood - COMP STOOL Radiology data: Recent Impressions: RADIOLOGY - XR ABDOMEN 1V (KUB) 09/04 1648 Report Impression - Status: SIGNED Entered: 09/04/2022 1757 IMPRESSION: Benign appearance of the abdomen. Impression By: [email or web address] - Roger Parra M.D . ULTRASOUND - DUP VEIN UNI/LTD 09/05 1146 Report Impression - Status: SIGNED Entered: 09/05/2022 1333 IMPRESSION: 1. No evidence of deep vein thrombosis. 2. Complex heterogeneous hypoechoic fluid collec tion in the left calf region measuring 8.4 x 2.8 x 2.5 cm; there is no internal vascularity or peripheral hyperemia. May represe nt a hematoma. Impression By: [email or web address] - Mert Ga M.D. Results: labs reviewed Diagnosis, Assessment Plan Consultants: cardiology, endocrinology, hospital ist, infectious disease, podiatry Free Text DxA P Notes Free Text DxA P Notes: 1. Positive FOBT-KUB on 09/04 was negative for ac [place] GI process. The patient denies overt GIB, dark tarry stools, nausea, abdominal pain, or vomiting. He is not on anticoagulation therapy. -Continue PPI. The patient h as never had EGD or colonoscopy, so may benefit from endoscopic workup to rule out peptic ulcer disea se vs vascular lesion vs malignancy 2. Acute on chronic anemia-n o overt GIB with current Hgb 7.1. He has received a total of 3 units pRBCs during this hospitalizati on -Monitor H/H -Monitor for GIB -Transfuse if HGB <7.0 3. Gangrene to right foot s/p right BKA 4. Prostate abscess 5. MRSA bacteremia 6. History of DM Aleah Trinidad 10/06/22 0718: Diagnosis, Assessment Plan Free Text DxA P Notes Free Text DxA P Notes: Case discussed, along with enoch corrigan and interview with LE Low. I agree with the plan and management as noted. at 1447 at 0718 RPT #:[id number] END OF REPORT 2022-09-05 14:25:00-00:00 [facility] ([facility]) Infectious Dis. Progress Note REPORT#:[id number] REPORT STATUS: Signed DATE:09/05/22 TIME: 1425 PATIENT: KARMA ROWLAND UNIT #: [id number] ROOM/BED: 537-1 : 63 AGE: 56 SEX: M ATTEND: Fredy Vences MD ADM AUTHOR: Merry Wolff MD * ALL edits or amendments must be made on the el [employer]computer document * Subjective HPI: PT is a 56yr old male with h istory of diabetes mellitus type 2, hypertension who was admitted with altered mental status and righ t-sided foot infection. According to him, he noticed a blister on his right foot around 3 days prior to presentation. His foot got progressively more sw ollen and erythema extended proximally to his lateral foot and ankle. CT abd omen and pelvis with contrast is concerning for possible prostate abscess. CT of lower extremity without contrast shows extensive sof t tissue edema with mottled gas in the subcutaneous and intramuscular compartments of the foot, comp atible with gas-forming infection. Patient's blood cultures have come ba ck positive for MRSA in 2 out of 2 sets. PT has had persistent (+)Ve cx for MR 08/18- 08/22. He underwent a debridement of his foot on 08/19 and cx g rew MRSA. PT was started on Vancomycin and clindamycin on 08/18. His MRI showed a prosta te abscess. 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 Pt underwent a transrectal aspiration and unroofing of prostate abscess 08/26 and cx grew Citrobacter, Enterococcus, MRSA. 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 JIMENA done 09/02. Pt was tr ansferred to Rehab on 09/02. 09/05 doing well, no changes overnight Patient reports: No: cough, diarrhea, fever, headache, nausea, sh ortness of breath, vomiting. Portions of this section wer e scribed by Jill Quintero on 09/05/22 at 1428 Objective General VS/I O: Vital Signs Date Temp Pulse Resp B/P B/P Mean Pulse Ox FiO2 09/04-09/05 97.7-98.8 84-89 13-18 139-167/67-80 91.0-108.7 97-99 Last Documented: Result Date Time Pulse Ox 97 09/05 0742 B/P 148/70 09/05 0742 B/P Mean 96.2 09/05 0742 O2 Delivery Room air 09/05 07 Temp 98.8 09/05 0742 Pulse 89 09/05 0742 Resp 18 09/05 0742 Vital Signs: Date Time Temp Pulse Resp B/P B/P Pulse O2 O2 F low FiO2 Mean Ox Delivery Rate 09/05 0742 98.8 89 18 148/70 96.2 97 Room air 09/04 2334 84 13 139/67 91.0 99 09/04 1703 97.7 89 18 154/70 98.1 98 Room air 09/04 1556 97.9 85 18 167/80 108.7 98 Room air 24 hour I O ending at 0700: 09/05 0700 09/04 1900 Intake Total 250 Output Total 1000 900 Balance -750 -900 Intake, Oral 250 Number 0 Incontinent Voids Number Voids 0 Output, Urine 1000 900 PATIENT WEIGHT: Weight (lb): 165 Weight (oz): 5.55 Weight (kg): 75.000 Antibiotic start date: Antibiotic: daptomycin Start Date:08/28- Antibiotic: cefepime Start Date:09/01- Antibiotic: merrem Start Date:08/27-09/01 Physical Exam Head/Eyes: atraumatic, clear cornea, EOMI, felisa l conjunctiva/sclera, normal eyelids/periorb, normocephalic, PERRL ENT: moist mucosal membranes, normal dentition Neck: full range of motion Cardiovascular: normal heart sounds, regular rat e rhythm Respiratory: clear to auscultation, aerating wel l Abdomen: non-tender, normal bowel sounds, soft Extremities: moves all, right BKA Left foot woun d +dressing in place 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 X 3 Considered stroke alert: no Skin: dry, intact Portions of this section wer e scribed by Jill Quintero on 09/05/22 at 1428 Diagnosis, Assessment Plan Free Text A P: *MRSA bacteremia -Initial blood cultures from 08/18/2022 positive for MRSA in 2 out of 2 sets. -Repeat blood cultures 08/21/2022 are already po sitive for MRSA in 2 out of 2 sets, suggesting persistent high-grade bacteremi a. -TTE 08/18/2022 negative for any obvious vegetat ions. -08/28 neg -JIMENA 09/02 neg *Prostatic abscess -s/p transrectal aspiration and unroofing on 08/26 -cx MRSA, citrobacter (r-cefazolin) Enterococcus raffinosus (S-amp,pcn, vancomycin), bacteriodes *ERIKA *Hyponatremia *Diabetic neuropathy *Diabetes mellitus type 2 *Hypertension 09/05 -cont on Cefepime and Daptomycin til 09/24 for kellen atment of Prostate abscess -follow esr and crp Consultants: cardiology, endocrinology, hospital ist, infectious disease, podiatry Portions of this section wer e scribed by Jill Quintero on 09/05/22 at 1428 at 1103 RPT #:[id number] END OF REPORT 2022-09-05 11:05:00-00:[address] [facility] ([facility]) Hospitalist Progress Note REPORT#:[id number] REPORT STATUS: Signed DATE:09/05/22 TIME: 1105 PATIENT: KARMA ROWLAND UNIT #: [id number] ROOM/BED: [place] [address] : 63 AGE: 56 SEX: M ATTEND: Fredy Vences MD ADM AUTHOR: Wilbert Ramires MD * ALL edits or amendments must be made on the [employer] document * Subjective Chief complaint: admitted to rehab. participating with therapy Review of Systems All systems rev neg: except as noted Objective General VS/I O: Vital Signs: Date Time Temp Pulse Resp B/P B/P Pulse O2 O2 F low FiO2 Mean Ox Delivery Rate 09/05 0742 98.8 89 18 148/70 96.2 97 Room air 09/04 2334 84 13 139/67 91.0 99 09/04 1703 97.7 89 18 154/70 98.1 98 Room air 09/04 1556 97.9 85 18 167/80 108.7 98 Room air 24 hour I O ending at 0700: 09/05 0700 09/04 1900 Intake Total 250 Output Total 1000 900 Balance -750 -900 Intake, Oral 250 Number 0 Incontinent Voids Number Voids 0 Output, Urine 1000 900 PATIENT WEIGHT: Weight (lb): 165 Weight (oz): 5.55 Weight (kg): 75.000 Medications: Active Meds + DC'd Last 24 Hrs Furosemide (LASIX) 20 MG DAILY PO Pantoprazole Sodium (PROTONIX) 40 MG Q12HR IV Polyethylene Glycol (MIRALAX) 17 GM DAILY PO Sennosides (Senna Lax 8.6 MG TABLET) 8.6 MG MADALYN Y PO Sodium Chloride (SODIUM CHLORIDE) 10 ML ASDIR NV N IV Pantoprazole (PROTONIX) 40 MG DAILY 0600 PO (DC) Amitriptyline HCl (ELAVIL) 25 MG BEDTIME PO Mupirocin (BACTROBAN 2% 22 GM OINTMENT) 1 APPLIC BID NASAL Furosemide (LASIX 40 mg/4 mL INJECTION) 40 MG ON CE ONE IV (DC) Bisacodyl (DULCOLAX) 10 MG ONCE ONE RECTAL (DC) Zinc Oxide (ZINC OXIDE 30 GM OINTMENT) 1 APPLIC DAILY TOPICAL Insulin Glargine (Lantus/Semglee) 10 UNIT BEDTI ME SUBQ Sterile Water (WATER FOR IRRIGATION) DRESSING CH GELACIO ASDIR PRN IRR Insulin Human Lispro (HUMALOG) 0 AC HS SUBQ Dextrose/Water (DEXTROSE 10% IN WATER) 125 ML DIR PRN IV (CKD) Dextrose/Water (DEXTROSE 10% IN WATER) 250 ML DIR PRN IV (CKD) Glucagon (GLUCAGON) 1 MG ASDIR PRN IM Vancomycin HCl (VANCOMYCIN HCL) 1,000 MG Q24H IV Sodium Chloride (SODIUM CHLORIDE 0.9%) 250 ML Hydrocodone Bitart/Acetaminophen (NORCO 10/325) 1 TAB Q4H PRN PRN PO Hydromorphone HCl (DILAUDID) 1 MG Q6H PRN PRN IV Lidocaine (LIDODERM) 1 PATCH DAILY TOPICAL Insulin Human Lispro (HUMALOG) 5 UNIT AC SUBQ Miscellaneous Information (VANCOMYCIN PHARMACY T O DOSE) 1 EACH ASDIR IV (CKD) Heparin Sodium (HEPARIN 5000 UNITS/ML) 5,000 UNI T Q8HR SUBQ Cefepime HCl (MAXIPIME) 1 GM Q6H IV Sodium Chloride (SODIUM CHLORIDE) 10 ML Acetaminophen (TYLENOL) 650 MG Q6H PRN PRN PO Bisacodyl (DULCOLAX) 10 MG DAILY PRN PRN RECTAL Dextrose/Water (DEXTROSE 10% IN WATER) 125 ML DIR PRN IV (DC) Dextrose/Water (DEXTROSE 10% IN WATER) 250 ML DIR PRN IV (DC) Docusate Sodium (COLACE) 100 MG Q12H PRN PRN PO Glucagon (GLUCAGON) 1 MG ASDIR PRN IM (DC) Hydralazine HCl (APRESOLINE) 10 MG Q6H PRN PRN I V Ondansetron HCl (ZOFRAN) 4 MG Q6H PRN PRN IV Physical Exam General appearance: alert, awake, oriented Head/Eyes: atraumatic, clear cornea Neck: full range of motion, non-tender Cardiovascular: normal capillary refill, normal heart sounds, regular rate rhythm Respiratory: aerating well, clear to auscultatio n Abdomen: non-tender, normal bowel sounds Genitourinary: no flank pain Extremities: moves all, normal capillary refill Musculoskeletal: normal inspection, painless ran ge of motion 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 X 3, 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 Considered stroke alert: no Skin: dry, intact Psychiatry: normal affect, normal judgment/insig ht Results Findings/Data: Laboratory Tests 09/05 2042 1557 Chemistry Sodium (134 - 147 mEq/L) 134 Potassium (3.4 - 5.0 mEq/L) 5.0 Chloride (100 - 108 mEq/L) 109 H Carbon Dioxide (21 - 33 mEq/l) 21 Anion Gap (0 - 20) 9 BUN (7 - 18 mg/dL) 24 H Creatinine (0.6 - 1.3 mg/dL) 1.3 Glomerular Filtr Rate (90 - 95) 63.7 L Glucose (70 - 110 mg/dL) 75 POC Glucose (70 - 110 MG/DL) 103 128 H Calcium (8.0 - 10.5 mg/dL) 7.9 L Laboratory Tests 09/05 0615 Hematology Hgb (12.5 - 16.9 g/dL) 7.1 L Hct (37.5 - 50.7 %) 22.7 L Laboratory Tests 09/04 1630 Toxicology Vancomycin Trough (10.0 - 20.0 mcg/mL) 12.8 Microbiology Date/Time Procedure - Status Source Growth 09/04 1739 Occult Blood - COMP STOOL Diagnosis, Assessment Plan Consultants: cardiology, endocrinology, hospital ist, infectious disease, podiatry Free Text DxA P Notes Free text DxA P notes: Gangrene of right foot s/p Below- knee amputatio n Prostate abscess MRSA bacteremia Hx of Diabetes, Diabetic neuropathy PLANS: Continue with ABx as dierected- currently on Dap tomycin and Cefepime Continue with PT/OT per primary Fall precautions Nutritional support pain control Tight glycemia control- endocrine on board, insu jahaira adjustments Wound care as directed Hepain PPX Continue with supportive / care follow hgb closely and transfuse as needed Electronically Signed by Wilbert Ramires MD on at 1106 RPT #:[id number] END OF REPORT 2022-09-05 11:02:00-00:[address] [facility] ([facility]) Cardiology Progress Note REPORT#:[id number] REPORT STATUS: Signed DATE:09/05/22 TIME: 1102 PATIENT: KARMA ROWLAND UNIT #: [id number] ROOM/BED: [place] [address] : 63 AGE: 56 SEX: M ATTEND: Fredy Vences MD ADM AUTHOR: Rohit Benitez CLAY MILLER * ALL edits or amendments must be made on the el [employer] document * Rohit Benitez 09/05/22 1102: Subjective Chief complaint: weakness Free Text Subj Notes Free Text Subj Notes: Patient seen and evaluated. Pending lower extrem ity ultrasound. Overall improvement in shortness of breath. Objective General VS/I O: 24 hour I O ending at 0700: 09/05 0700 09/04 1900 Intake Total 250 Output Total 1000 900 Balance -750 -900 Intake, Oral 250 Number 0 Incontinent Voids Number Voids 0 Output, Urine 1000 900 Vital Signs: Date Time Temp Pulse Resp B/P B/P Pulse O2 O2 F low FiO2 Mean Ox Delivery Rate 09/05 0742 98.8 89 18 148/70 96.2 97 Room air 09/04 2334 84 13 139/67 91.0 99 09/04 1703 97.7 89 18 154/70 98.1 98 Room air 09/04 1556 97.9 85 18 167/80 108.7 98 Room air PATIENT WEIGHT: Weight (lb): 165 Weight (oz): 5.55 Weight (kg): 75.000 Medications: Active Meds + DC'd Last 24 Hrs Furosemide (LASIX) 20 MG DAILY PO Pantoprazole Sodium (PROTONIX) 40 MG Q12HR IV Polyethylene Glycol (MIRALAX) 17 GM DAILY PO Sennosides (Senna Lax 8.6 MG TABLET) 8.6 MG MADALYN Y PO Sodium Chloride (SODIUM CHLORIDE) 10 ML ASDIR NV N IV Pantoprazole (PROTONIX) 40 MG DAILY 0600 PO (DC) Amitriptyline HCl (ELAVIL) 25 MG BEDTIME PO Mupirocin (BACTROBAN 2% 22 GM OINTMENT) 1 APPLIC BID NASAL Furosemide (LASIX 40 mg/4 mL INJECTION) 40 MG ON CE ONE IV (DC) Bisacodyl (DULCOLAX) 10 MG ONCE ONE RECTAL (DC) Zinc Oxide (ZINC OXIDE 30 GM OINTMENT) 1 APPLIC DAILY TOPICAL Insulin Glargine (Lantus/Semglee) 10 UNIT BEDTIM E SUBQ Sterile Water (WATER FOR IRRIGATION) DRESSING CH GELACIO ASDIR PRN IRR Insulin Human Lispro (HUMALOG) 0 AC HS SUBQ Dextrose/Water (DEXTROSE 10% IN WATER) 125 ML DIR PRN IV (CKD) Dextrose/Water (DEXTROSE 10% IN WATER) 250 ML DIR PRN IV (CKD) Glucagon (GLUCAGON) 1 MG ASDIR PRN IM Vancomycin HCl (VANCOMYCIN HCL) 1,000 MG Q24H IV Sodium Chloride (SODIUM CHLORIDE 0.9%) 250 ML Hydrocodone Bitart/Acetaminophen (NORCO 10/325) 1 TAB Q4H PRN PRN PO Hydromorphone HCl (DILAUDID) 1 MG Q6H PRN PRN IV Lidocaine (LIDODERM) 1 PATCH DAILY TOPICAL Insulin Human Lispro (HUMALOG) 5 UNIT AC SUBQ Miscellaneous Information (VANCOMYCIN PHARMACY T O DOSE) 1 EACH ASDIR IV (CKD) Heparin Sodium (HEPARIN 5000 UNITS/ML) 5,000 UNI T Q8HR SUBQ Cefepime HCl (MAXIPIME) 1 GM Q6H IV Sodium Chloride (SODIUM CHLORIDE) 10 ML Acetaminophen (TYLENOL) 650 MG Q6H PRN PRN PO Bisacodyl (DULCOLAX) 10 MG DAILY PRN PRN RECTAL Dextrose/Water (DEXTROSE 10% IN WATER) 125 ML DIR PRN IV (DC) Dextrose/Water (DEXTROSE 10% IN WATER) 250 ML DIR PRN IV (DC) Docusate Sodium (COLACE) 100 MG Q12H PRN PRN PO Glucagon (GLUCAGON) 1 MG ASDIR PRN IM (DC) Hydralazine HCl (APRESOLINE) 10 MG Q6H PRN PRN I V Ondansetron HCl (ZOFRAN) 4 MG Q6H PRN PRN IV Physical Exam General appearance: alert, awake, oriented Neck: no bruit/NL carotids, no JVD Cardiovascular: CV assessment: regular rate and rhythm, no ecto py, no gallop Respiratory: clear to auscultation, no distress Abdomen: soft, non-tender Lower extremity: LE assessment: edema, normal temperature 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 X 3 Considered stroke alert: no Wound/incision: Location: right bka Psychiatry: normal affect, normal judgment/insig ht, normal mood Results Findings/Data: Laboratory Tests 09/052 1557 Chemistry Sodium (134 - 147 mEq/L) 134 Potassium (3.4 - 5.0 mEq/L) 5.0 Chloride (100 - 108 mEq/L) 109 H Carbon Dioxide (21 - 33 mEq/l) 21 Anion Gap (0 - 20) 9 BUN (7 - 18 mg/dL) 24 H Creatinine (0.6 - 1.3 mg/dL) 1.3 Glomerular Filtr Rate (90 - 95) 63.7 L Glucose (70 - 110 mg/dL) 75 POC Glucose (70 - 110 MG/DL) 103 128 H Calcium (8.0 - 10.5 mg/dL) 7.9 L Laboratory Tests 09/05 0515 Hematology Hgb (12.5 - 16.9 g/dL) 7.1 L Hct (37.5 - 50.7 %) 22.7 L Laboratory Tests 09/04 1630 Toxicology Vancomycin Trough (10.0 - 20.0 mcg/mL) 12.8 Microbiology Date/Time Procedure - Status Source Growth 09/04 1739 Occult Blood - COMP STOOL Radiology data: Recent Impressions: RADIOLOGY - XR ABDOMEN 1V (KUB) 09/04 1648 Report Impression - Status: SIGNED Entered: 09/04/2022 1757 IMPRESSION: Benign appearance of the abdomen. Impression By: [email or web address] - Hakeem Soto Diagnosis, Assessment Plan Consultants: cardiology, endocrinology, hospital ist, infectious disease, podiatry Free Text DxA P Notes Free Text DxA P Notes: Impression: 1. Debility 2. Infected right foot status post BKA 3. Bacteremia 4. Diabetes 5. Hypertension 6. Anemia 07/2022: Echocardiogram with normal LVEF, grade 1 diastolic dysfunction, mildly dilated LA, and no significant valvular abnormal ities Recommendation: Patient initially presented with DKA and sepsis. Diagnosed with right foot infection, underwent I D, now status post BKA. P atient had persistent bacteremia with MRSA, underwent JIMENA with negativ e findings of endocarditis. Patient now transferred to [facility] for physical therapy. Known cardiac history of hypertension and hyperlipide renetta. Vital signs stable. Echocardiogram with normal LVEF, grade 1 diastolic dysfunction, mildly dila carlos LA, and no significant valvular abnormalities. Continue to monitor bloo d pressure trend. Continue wound care and IV antibiotic therapy. Continue P T/OT. Supportive care. 09/04: Patient complaining of shortness of breath, abdominal distention and lower extremity edema. Renal function and electrolytes stable. Will give one-time dose of IV Lasix 40 mg. Blood pressure stable. P ending abdominal x-ray. Monitor intake and output. Check BMP in the morn ing. Supportive care. Plan of care discussed with patient, RN and Dr. Parham. 09/05: Patient responded well to IV Lasix , good urine output and improvement in shortness of breath. Chest x-ray ordered . Currently on Lasix 20 mg p.o. daily. Continue monitor renal function and electrolyte s. Pending lower extremity Doppler for lower extremity edema. Continue PT/O T. Supportive care. Plan of care discussed with patient, RN and Dr. Parham. Gianni Parham 09/06/22 1633: Diagnosis, Assessment Plan Additional comments: Patient was seen and examined at bedside , agree with above assessment and plan as documented by nurse practitioner. Will follow . Electronically Signed by Rohit Benitez NP on 0 09/05/22 at 1601 at 1638 [facility] #:[id number] END OF REPORT 2022-09-05 06:16:00-00:[address] [facility] ([facility]) Rehab Progress Note REPORT#:[id number] REPORT STATUS: Signed DATE:09/05/22 TIME: 615 PATIENT: KARMA ROWLAND UNIT #: [id number] ROOM/BED: [place] [address] : 63 AGE: 56 SEX: M ATTEND: Fredy Vences MD ADM AUTHOR: Mj Vences MD * ALL edits or amendments must be made on the [employer]/computer document * Subjective Chief complaint: Rehabilitation follow-up Doing better, feels some abdominal distention bu t no pain Left leg with edema Had BM as per patient and RN Patient very motivated Eating Denies nausea, vomiting, fever, chills, chest pa in, shortness of breath History of present illness: 56 yo HAM with long h/o DM, and HTN who was admitted for fever, flulike symptoms and altered mental status on 08/18. He was doing well until about 3 days prior to admission when he noted blister to have formed o n the dorsum of his foot. His foot started progressively getting more swollen and the blisters started enlarging and extending to his lateral f oot and ankle. He started feeling weak and nauseated. He was noted to have altered mentation and was brought to our ER. He was noted to be in DKA with Blood sugars grea ter than 600. He was seen by podiatry and surgery for BLE wounds and infectio n. He was treated in ICU for sepsis and DKA. He underwent incisional and excisional debridement of right foot and right ankle by podiatry. Patient also found to have prostate abscess underwent transrectal ultrasound aspiration of a bscess and transurethral resection of prostate and unroofing of abscess b y urology Dr. Bass. Endocrinology treated the DKA and blood sugars m uch improved. Patient's right foot was not salvageable and patient und erwent right BKA by Dr. LEROY on 08/28. Patient blood cultures showe d MRSA. Patient continued on antibiotics as per ID. MRI of the pelvis and foot completed. Patient r equired multiple PRBCs for anemia. Patient was found to have a possible small hematoma of the left calf on ultrasound. He complains of pain and swelling of the left ankle. Patient hemodynamically stable and plans are to be transferred to stepdown unit. He is on heparin subcu for VTE. Af ter surgery he is now being mobilized by PT and OT. He is wearing a [employer] orthotic for right knee /BKA protection. Prior to admission the patient was independent living in a single-story house with his spouse with a few steps up to front and back doo r. 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 is at bedside. Patient denies nausea, vomiting, fever, chills, chest pain, shortness of breath with diz ziness. He is requiring IV Dilaudid for pain control. Mental status back to baseline. Pt is progressing slowly with therapy d/t weakness and pain, self care deficit, decreased endurance and balance, and decreased functional mobility. Pt requiring acute inpt rehab for multidiscipli nary team of nursing, therapy, and physicians. Pt is willing and able to partici- kathleen in 3 hr/day inpt rehab to d/c home safely. Pt' s prior level of function was independent. Objective General VS: Vital Signs: Date Time Temp Pulse Resp B/P B/P Pulse O2 O2 F low FiO2 Mean Ox Delivery Rate 09/04 2334 84 13 139/67 91.0 99 09/04 1703 97.7 89 18 154/70 98.1 98 Room air 09/04 1556 97.9 85 18 167/80 108.7 98 Room air 09/04 0718 97.5 80 18 133/69 90.3 99 Room air PATIENT WEIGHT: Weight (lb): 165 Weight (oz): 5.55 Weight (kg): 75.000 Medications: Active Meds + DC'd Last 24 Hrs Furosemide (LASIX) 20 MG DAILY PO Polyethylene Glycol (MIRALAX) 17 GM DAILY PO Sennosides (Senna Lax 8.6 MG TABLET) 8.6 MG MADALYN Y PO Pantoprazole (PROTONIX) 40 MG DAILY 0600 PO Amitriptyline HCl (ELAVIL) 25 MG BEDTIME PO Mupirocin (BACTROBAN 2% 22 GM OINTMENT) 1 APPLIC BID NASAL Furosemide (LASIX 40 mg/4 mL INJECTION) 40 MG ON CE ONE IV (DC) Bisacodyl (DULCOLAX) 10 MG ONCE ONE RECTAL (DC) Zinc Oxide (ZINC OXIDE 30 GM OINTMENT) 1 APPLIC DAILY TOPICAL Insulin Glargine (Lantus/Semglee) 10 UNIT BEDTIM E SUBQ Sterile Water (WATER FOR IRRIGATION) DRESSING CH GELACIO ASDIR PRN IRR Insulin Human Lispro (HUMALOG) 0 AC HS SUBQ Dextrose/Water (DEXTROSE 10% IN WATER) 125 ML DIR PRN IV (CKD) Dextrose/Water (DEXTROSE 10% IN WATER) 250 ML DIR PRN IV (CKD) Glucagon (GLUCAGON) 1 MG ASDIR PRN IM Vancomycin HCl (VANCOMYCIN HCL) 1,000 MG Q24H IV Sodium Chloride (SODIUM CHLORIDE 0.9%) 250 ML Hydrocodone Bitart/Acetaminophen (NORCO 10/325) 1 TAB Q4H PRN PRN PO Hydromorphone HCl (DILAUDID) 1 MG Q6H PRN PRN IV Lidocaine (LIDODERM) 1 PATCH DAILY TOPICAL Insulin Human Lispro (HUMALOG) 5 UNIT AC SUBQ Miscellaneous Information (VANCOMYCIN PHARMACY T O DOSE) 1 EACH ASDIR IV (CKD) Heparin Sodium (HEPARIN 5000 UNITS/ML) 5,000 UNI T Q8HR SUBQ Cefepime HCl (MAXIPIME) 1 GM Q6H IV Sodium Chloride (SODIUM CHLORIDE) 10 ML Acetaminophen (TYLENOL) 650 MG Q6H PRN PRN PO Bisacodyl (DULCOLAX) 10 MG DAILY PRN PRN RECTAL Dextrose/Water (DEXTROSE 10% IN WATER) 125 ML DIR PRN IV (DC) Dextrose/Water (DEXTROSE 10% IN WATER) 250 ML DIR PRN IV (DC) Docusate Sodium (COLACE) 100 MG Q12H PRN PRN PO Glucagon (GLUCAGON) 1 MG ASDIR PRN IM (DC) Hydralazine HCl (APRESOLINE) 10 MG Q6H PRN PRN I V Ondansetron HCl (ZOFRAN) 4 MG Q6H PRN PRN IV Physical Exam General appearance: alert, awake, no acute distr ess Psych: alert, normal affect, oriented x 3 HEENT: anicteric, sclera clear Neck: supple, no JVD Cardiovascular: S1/S2, no murmur Respiratory: aerating well, clear bilaterally Abdomen: bowel sounds present, non-distended, so ft, non-tender Skin: no rash, R BKA wrapped healing. 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 X 3, CNII-XII intact Results Findings/Data: Laboratory Tests: 09/04 09/04 09/04 09/04 09/04 2042 1630 1557 1100 1031 Chemistry POC Glucose (70 - 110 MG/DL) 103 128 H 107 Hematology Hgb (12.5 - 16.9 g/dL) 7.7 L Hct (37.5 - 50.7 %) 23.7 L Toxicology Vancomycin Trough (10.0 - 20.0 mcg/mL) 12.8 09/04 09/04 0816 0721 Chemistry POC Glucose (70 - 110 MG/DL) 99 87 Microbiology: 09/04 1739 STOOL: Occult Blood -positive Laboratory Tests 09/02 09/02 09/02 09/02 09/03 1513 1732 1908 1929 0415 Chemistry Sodium (134 - 147 mEq/L) 135 Potassium (3.4 - 5.0 mEq/L) 4.6 Chloride (100 - 108 mEq/L) 111 Carbon Dioxide (21 - 33 mEq/l) 22 Anion Gap (0 - 20) 6 BUN (7 - 18 mg/dL) 22 Creatinine (0.6 - 1.3 mg/dL) 1.1 Glomerular Filtr Rate (90 - 95) 77.8 Glucose (70 - 110 mg/dL) 92 POC Glucose (70 - 110 MG/DL) 257 102 159 210 Calcium (8.0 - 10.5 mg/dL) 7.9 Magnesium (1.80 - 2.40 mg/dL) 1.89 Total Bilirubin (0.0 - 1.0 mg/dL) 0.30 AST (15 - 37 IUnit/L) 15 ALT (30 - 65 IUnit/L) < 7 Total Alk Phosphatase (20 - 125 IUnit/L) 93 Total Protein (6.4 - 8.2 g/dL) 6.7 Albumin (3.4 - 5.0 g/dL) 1.30 Prealbumin (16.0 - 40.0 mg/dL) < 5.0 Hematology WBC (4.5 - 11.0 x10 3/uL) 8.7 RBC (4.00 - 5.60 x10 6/uL) 2.92 Hgb (12.5 - 16.9 g/dL) 8.0 Hct (37.5 - 50.7 %) 25.5 MCV (81.0 - 99.0 fL) 87.3 MCH (27.0 - 33.0 pg) 27.4 MCHC (33.0 - 37.0 g/dL) 31.4 RDW (11.5 - 14.5 %) 13.9 Plt Count (150 - 400 x10 3/uL) 188 MPV (7.0 - 9.0 fL) 10.1 Neut % (Auto) (56.0 - 77.0 %) 75.0 Lymph % (Auto) (14.0 - 32.0 %) 15.1 Boundary % (Auto) (4.8 - 9.0 %) 6.8 Eos % (Auto) (0.3 - 3.7 %) 2.3 Baso % (Auto) (0.0 - 2.0 %) 0.3 Neut # (Auto) (2.0 - 7.6 x10 3/uL) 6.51 Lymph # (Auto) (1.0 - 3.8 x10 3/uL) 1.31 Boundary # (Auto) (0.1 - 0.8 x10 3/uL) 0.59 Eos # (Auto) (0.0 - 0.2 x10 3/uL) 0.20 Baso # (Auto) (0.0 - 0.2 x10 3/uL) 0.03 Abs Immat Gran (auto) (0.00 - 0.03 0.04 x10 3/uL) Add Manual Diff NO Immature Gran % (0.0 - 2.0 %) 0.5 Nucleated RBC % (0 - 0 %) 0.0 Nucleated RBCs # (Man) (0.0 - 0.1 x10 3/uL) 0.0 0 09/03 09/03 09/03 09/03 09/03 0415 0518 1116 1143 1233 Chemistry POC Glucose (70 - 110 MG/DL) 88 44 50 136 Albumin Cancelled Prealbumin Cancelled 09/03 09/03 09/03 09/04 09/04 1622 1836 1944 0540 0721 Chemistry POC Glucose (70 - 110 MG/DL) 135 124 87 Hematology Hgb (12.5 - 16.9 g/dL) 6.8 Hct (37.5 - 50.7 %) 21.2 Toxicology Vancomycin Peak (30 - 40 MCG/ML) 27.4 09/04 09/04 09/04 09/04 09/04 0816 1031 1100 1430 1557 Chemistry POC Glucose (70 - 110 MG/DL) 99 107 128 Hematology Hgb (12.5 - 16.9 g/dL) 7.7 Hct (37.5 - 50.7 %) 23.7 Toxicology Vancomycin Trough Cancelled 09/04 09/04 09/05 09/05 09/05 1630 2042 0615 0615 1149 Chemistry Sodium (134 - 147 mEq/L) 134 Potassium (3.4 - 5.0 mEq/L) 5.0 Chloride (100 - 108 mEq/L) 109 Carbon Dioxide (21 - 33 mEq/l) 21 Anion Gap (0 - 20) 9 BUN (7 - 18 mg/dL) 24 Cancelled Creatinine (0.6 - 1.3 mg/dL) 1.3 Cancelled Glomerular Filtr Rate (90 - 95) 63.7 Glucose (70 - 110 mg/dL) 75 POC Glucose (70 - 110 MG/DL) 103 74 Calcium (8.0 - 10.5 mg/dL) 7.9 Hematology Hgb (12.5 - 16.9 g/dL) 7.1 Hct (37.5 - 50.7 %) 22.7 Toxicology Vancomycin Trough (10.0 - 20.0 mcg/mL) 12.8 Radiology data: Recent Impressions: RADIOLOGY - XR ABDOMEN 1V (KUB) 09/04 1648 Report Impression - Status: SIGNED Entered: 09/04/2022 3425 IMPRESSION: Benign appearance of the abdomen. Impression By: [email or web address] - Hakeem Soto Diagnosis, Assessment Plan Problem List/A P: 1. Gangrene of right foot 2. 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 MRSA bacteremia 4. Cellulitis of foot, right 5. DKA (diabetic ketoacidosis) 6. Hyperglycemia 7. ERIKA (acute kidney injury) 8. Postoperative pain 9. Acute anemia 10. Prostate abscess 11. 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 Leroy Significant impairment in self-care, ADLs and fu nctional mobility Impaired mobility and gait Acute postoperative pain right BKA, left foot an d ankle Diabetic polyneuropathy DKA, DM 2, poorly controlled, A1c greater than 1 4 PAD MRSA bacteremia/sepsis-treated on acute ERIKA Severe hyponatremia-resolved HTN Acute on chronic anemia requiring multiple trans fusions, possible GI bleed Left calf hematoma Edema and clinical arthritis left ankle Early decubitus to left heel/DTI dorsal left mid foot Prostatic abscess 08/26: S/p transrectal ultrasound aspiration of ab scess and transurethral resection of prostate and unroofing of abscess Echo: EF 55-59%, grade 1 diastolic dysfunction 09/02: JIMENA negative for vegetation MRSA OF NARES LLE edema Plan: -PLOF: Independent with transfers and gait -Amputee rehab program -Continue PT and OT -15/12 rehabilitation nursing care. -Case management for safe discharge planning. -Decubitus prevention -Early decubitus to left heel/DTI dorsal left mi dfoot-zinc oxide to the foot, foam, offloading, podiatry managing -DVT prophylaxis-subcutaneous heparin -Strict fall and safety precautions -Work on bed mobility, transfer training, ADLs, pre-gait and gait exercises -Increase endurance and strength -Monitor pain with therapies -OOB to chair -Monitor p.o. intake and nut rition, albumin 1.3, prealbumin less than 5, dietary consultation, protein supplements to promote hea ling -Continue antibiotics per ID -Tight glycemia control- endocrine on board, ins ulin adjustments -Endocrinology, ID, podiatry, cardiology, IM con sulted -Pain management adjusting pain medications -Labs reviewed-WBC normal, hemoglobin 8, 6.8, 7. 7, 7.1 platelets normal, chemistries good, creatinine 1.1, magnesium norm al -Anemia, patient required multiple units of PRBC s on acute, FOBT positive -Start IV Protonix-consult G I-serial H H-no evidence of gross bleeding-discussed with Dr. Trinidad -Constipation-abdominal nkjukynq-VYI-nptvlu-CW S enokot and MiraLAX, DSP -Right QSX-ewlnjzy-eviajpdo resolved, dr martinez changed fqdpn-idfqxga-bpozqgjg NESTOR-TECH -MRSA OF NARES on Bactroban protocol -LLE edema-check venous Doppler -Generalized edema-some shor tness of breath and abdominal distention-cardiology gave a dose of IV Lasix-monitor urine output, da jaz weights -Chest x-ray pending ordered by cardio -Anemia-transfused 2 units of PRBC-discussed wit h medicine-see orders -Advance therapies as tolerated-discusse d treatment plan with patient and -Patient progressing but limited due to weakness requiring min assist with transfers with standby assist. Continue plan of care with emphasis on sliding board transfers. Progress: PATIENT WORKED ON BED MOB, ASSISTANCE WITH UPPER TRUNK TO SIT UP EOB, MIN A, CGA FOR SITTING BALANCE, WORKED ON SLIDING BOARD TRANSFERS WITH MIN A SET UP, AND SCOOTING ASSIST. PATIENT WORKED ON WC M OB WITH JM 150 FEET X 2 ASSIST FOR TURNS. PATIENT WORKED O N TRANSFERS BACK TO BED WITH USE OF SB, WITH MIN A FOR SAFE TY , SET UP AND SCOOTING ASSIST, REQUIRED ASSIST WITH LE TO LAY SUPINE AND LEFT LLE IN OFFLOAD BOOT Total time 35 minutes greater than 50% of the ti me spent examining patient, discussing with patient and about a nemia, possible GI bleed, transfusion, edema, amputation rehab, rehab plan of c are, goals, therapies, progress, labs, medications. EMR and MAR is reviewed. All questi ons answered Orders: Procedure Date/time Status HGB HCT 09/05 0400 Active PT FUNCTIONAL TRN 15 MIN 09/04 UNK Complete PT EXERCISE 15 MIN 09/04 UNK Complete OT FUNCTIONAL TRN 15 MIN 09/04 UNK Complete OT EXERCISE 15MIN 09/04 UNK Complete Consultants: cardiology, endocrinology, hospital ist, infectious disease, podiatry Rehab attestation: Face to face exam completed. Treatment plan disc ussed with patient. Meets continued stay criteria. Agree with interdiscipl inary treatment plan. at [address] [facility] #:[id number] END OF REPORT 2022-09-04 17:38:00-00:00 [facility] Endocrinology Progress Note REPORT#:[id number] REPORT STATUS: Signed DATE:09/04/22 TIME: 1738 PATIENT: KARMA ROWLAND UNIT #: [id number] ROOM/BED: [place] [address] : 63 AGE: 56 SEX: M ATTEND: Fredy Vences MD ADM AUTHOR: Braxton Chapin MD * ALL edits or amendments must be made on the [employer]/computer document * Subjective Patient reports: no complaints Objective General VS: Last Documented: Result Date Time Pulse Ox 98 09/04 1702 B/P 154/70 09/04 1702 B/P Mean 98.1 09/04 1702 O2 Delivery Room air 09/04 1702 Temp 36.5 09/04 1702 Pulse 89 09/04 1702 Resp 18 09/04 1702 PATIENT WEIGHT: Weight (lb): 165 Weight (oz): 5.55 Weight (kg): 75.000 Medications: Active Meds + DC'd Last 24 Hrs Polyethylene Glycol (MIRALAX) 17 GM DAILY PO Sennosides (Senna Lax 8.6 MG TABLET) 8.6 MG MADALYN Y PO Amitriptyline HCl (ELAVIL) 25 MG BEDTIME PO Mupirocin (BACTROBAN 2% 22 GM OINTMENT) 1 APPLIC BID NASAL Furosemide (LASIX 40 mg/4 mL INJECTION) 40 MG ON CE ONE IV (DC) Bisacodyl (DULCOLAX) 10 MG ONCE ONE RECTAL (DC) Zinc Oxide (ZINC OXIDE 30 GM OINTMENT) 1 APPLIC DAILY TOPICAL Insulin Glargine (Lantus/Semglee) 10 UNIT BEDTI ME SUBQ Sterile Water (WATER FOR IRRIGATION) DRESSING CH GELACIO ASDIR PRN IRR Insulin Human Lispro (HUMALOG) 0 AC HS SUBQ Dextrose/Water (DEXTROSE 10% IN WATER) 125 ML DIR PRN IV (CKD) Dextrose/Water (DEXTROSE 10% IN WATER) 250 ML DIR PRN IV (CKD) Glucagon (GLUCAGON) 1 MG ASDIR PRN IM Vancomycin HCl (VANCOMYCIN HCL) 1,000 MG Q24H IV Sodium Chloride (SODIUM CHLORIDE 0.9%) 250 ML Hydrocodone Bitart/Acetaminophen (NORCO 10/325) 1 TAB Q4H PRN PRN PO Hydromorphone HCl (DILAUDID) 1 MG Q6H PRN PRN IV Lidocaine (LIDODERM) 1 PATCH DAILY TOPICAL Insulin Human Lispro (HUMALOG) 5 UNIT AC SUBQ Miscellaneous Information (VANCOMYCIN PHARMACY T O DOSE) 1 EACH ASDIR IV (CKD) Heparin Sodium (HEPARIN 5000 UNITS/ML) 5,000 UNI T Q8HR SUBQ Cefepime HCl (MAXIPIME) 1 GM Q6H IV Sodium Chloride (SODIUM CHLORIDE) 10 ML Acetaminophen (TYLENOL) 650 MG Q6H PRN PRN PO Bisacodyl (DULCOLAX) 10 MG DAILY PRN PRN RECTAL Dextrose/Water (DEXTROSE 10% IN WATER) 125 ML DIR PRN IV (DC) Dextrose/Water (DEXTROSE 10% IN WATER) 250 ML DIR PRN IV (DC) Docusate Sodium (COLACE) 100 MG Q12H PRN PRN PO Glucagon (GLUCAGON) 1 MG ASDIR PRN IM (DC) Hydralazine HCl (APRESOLINE) 10 MG Q6H PRN PRN I V Ondansetron HCl (ZOFRAN) 4 MG Q6H PRN PRN IV Physical Exam General appearance: alert, awake Diagnosis, Assessment Plan Hospital course to date: Laboratory Tests: 09/04 09/04 09/04 09/04 09/04 1630 1557 1100 1031 0816 Chemistry POC Glucose (70 - 110 MG/DL) 128 H 107 99 Hematology Hgb (12.5 - 16.9 g/dL) 7.7 L Hct (37.5 - 50.7 %) 23.7 L Toxicology Vancomycin Trough (10.0 - 20.0 mcg/mL) 12.8 09/04 09/04 09/03 09/03 0721 0540 1944 1836 Chemistry POC Glucose (70 - 110 MG/DL) 87 124 H Hematology Hgb (12.5 - 16.9 g/dL) 6.8 L Hct (37.5 - 50.7 %) 21.2 L Toxicology Vancomycin Peak (30 - 40 MCG/ML) 27.4 L Microbiology: Date/Time Procedure - Status Source Growth 09/04 1037 Occult Blood - COLB STOOL 1.Diabetes mellitus type 2 uncontrolled complica tions. 2. 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 4. Sepsis 5. Prostate abscess. 6. Anemia Blood sugar 87-10 7 mg/dL. Adjust insulin dose. PT and OT. Consultants: cardiology, endocrinology, hospital ist, infectious disease, podiatry Electronically Signed by Braxton Chapin MD on at 1740 RPT #:[id number] END OF REPORT 2022-09-04 15:24:00-00:[address] [facility] ([facility]) Infectious Dis. Progress Note REPORT#:[id number] REPORT STATUS: Signed DATE:09/04/22 TIME: 1524 PATIENT: KARMA ROWLAND UNIT #: [id number] ROOM/BED: [place] [address] : 63 AGE: 56 SEX: M ATTEND: Fredy Vences MD ADM AUTHOR: Merry Wolff MD * ALL edits or amendments must be made on the [employer]/computer document * Subjective HPI: PT is a 56yr old male with h istory of diabetes mellitus type 2, hypertension who was admitted with altered mental status and righ t-sided foot infection. According to him, he noticed a blister on his right foot around 3 days prior to presentation. His foot got progressively more sw ollen and erythema extended proximally to his lateral foot and ankle. CT abd omen and pelvis with contrast is concerning for possible prostate abscess. CT of lower extremity without contrast shows extensive sof t tissue edema with mottled gas in the subcutaneous and intramuscular compartments of the foot, comp atible with gas-forming infection. Patient's blood cultures have come ba ck positive for MRSA in 2 out of 2 sets. PT has had persistent (+)Ve cx for MR FREITAS 08/18- 08/22. He underwent a debridement of his foot on 08/19 and cx g rew MRSA. PT was started on Vancomycin and clindamycin on 08/18. His MRI showed a prosta te abscess. 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 Pt underwent a transrectal aspiration and unroofing of prostate abscess 08/26 and cx grew Citrobacter, Enterococcus, MRSA. 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 JMIENA done 09/02. Pt was tr ansferred to Rehab on 09/02. 09/03 Pt is doing well, blood sugars are on the l ow side today 09/04 Portions of this section wer e scribed by Jill Quintero on 09/04/22 at 1524 Objective General VS/I O: Vital Signs Date Temp Pulse Resp B/P B/P Mean Pulse Ox FiO2 09/03-09/04 97.5-98.1 80-92 16-18 128-159/65-79 85.6-104.5 96-100 Last Documented: Result Date Time Pulse Ox 99 09/04 0718 B/P 133/69 09/04 0718 B/P Mean 90.3 09/04 0718 O2 Delivery Room air 09/04 0718 Temp 97.5 09/04 0718 Pulse 80 09/04 0718 Resp 18 09/04 0718 Vital Signs: Date Time Temp Pulse Resp B/P B/P Pulse O2 O2 F low FiO2 Mean Ox Delivery Rate 09/04 0718 97.5 80 18 133/69 90.3 99 Room air 09/03 2328 97.5 82 16 128/65 85.6 96 09/03 1920 98.1 92 16 154/79 103.6 97 09/03 1621 97.5 89 17 159/77 104.5 100 24 hour I O ending at 0700: 09/04 0700 09/03 1900 Intake Total 598 Output Total 400 Balance 198 Intake, Oral 598 Number 0 Incontinent Voids Number Voids 0 Output, Urine 400 Patient 75 kg Weight Weight Bed scale Measurement Method PATIENT WEIGHT: Weight (lb): 165 Weight (oz): 5.55 Weight (kg): 75.000 Antibiotic start date: Antibiotic: daptomycin Start Date:08/28- Antibiotic: cefepime Start Date:09/01- Antibiotic: merrem Start Date:08/27-09/01 Physical Exam General appearance: alert, awake, oriented Head/Eyes: atraumatic, clear cornea, EOMI, felisa l conjunctiva/sclera, normal eyelids/periorb, normocephalic, PERRL ENT: moist mucosal membranes, normal dentition Neck: full range of motion Cardiovascular: normal heart sounds, regular rat e rhythm Respiratory: clear to auscultation, aerating wel l Abdomen: non-tender, normal bowel sounds, soft Extremities: moves all, right BKA Left foot woun d +dressing in place 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 X 3 Considered stroke alert: no Skin: dry, intact Results Findings/Data: Laboratory Tests 09/04 09/04 09/04 09/03 09/03 1100 0816 0721 194 1622 Chemistry POC Glucose (70 - 110 MG/DL) 107 99 87 124 H 13 5 H Laboratory Tests 09/04 09/04 1031 0540 Hematology Hgb (12.5 - 16.9 g/dL) 7.7 L 6.8 L Hct (37.5 - 50.7 %) 23.7 L 21.2 L Laboratory Tests 09/04 1835 Toxicology Vancomycin Peak (30 - 40 MCG/ML) 27.4 L Laboratory Tests: 09/04 09/04 09/04 09/04 09/04 1100 1031 0816 0721 0540 Chemistry POC Glucose (70 - 110 MG/DL) 107 99 87 Hematology Hgb (12.5 - 16.9 g/dL) 7.7 L 6.8 L Hct (37.5 - 50.7 %) 23.7 L 21.2 L 09/03 1836 1622 1233 1143 Chemistry POC Glucose (70 - 110 MG/DL) 124 H 135 H 136 H 50 L Toxicology Vancomycin Peak (30 - 40 MCG/ML) 27.4 L 09/03 09/03 09/03 09/02 09/02 1116 0518 0415 192 1908 Chemistry Sodium (134 - 147 mEq/L) 135 Potassium (3.4 - 5.0 mEq/L) 4.6 Chloride (100 - 108 mEq/L) 111 H Carbon Dioxide (21 - 33 mEq/l) 22 Anion Gap (0 - 20) 6 BUN (7 - 18 mg/dL) 22 H Creatinine (0.6 - 1.3 mg/dL) 1.1 Glomerular Filtr Rate (90 - 95) 77.8 L Glucose (70 - 110 mg/dL) 92 POC Glucose (70 - 110 MG/DL) 44 L 88 210 H 159 H Calcium (8.0 - 10.5 mg/dL) 7.9 L Magnesium (1.80 - 2.40 mg/dL) 1.89 Total Bilirubin (0.0 - 1.0 mg/dL) 0.30 AST (15 - 37 IUnit/L) 15 ALT (30 - 65 IUnit/L) < 7 L Total Alk Phosphatase (20 - 125 IUnit/L) 93 Total Protein (6.4 - 8.2 g/dL) 6.7 Albumin (3.4 - 5.0 g/dL) 1.30 L Prealbumin (16.0 - 40.0 mg/dL) < 5.0 L Hematology WBC (4.5 - 11.0 x10 3/uL) 8.7 RBC (4.00 - 5.60 x10 6/uL) 2.92 L Hgb (12.5 - 16.9 g/dL) 8.0 L Hct (37.5 - 50.7 %) 25.5 L MCV (81.0 - 99.0 fL) 87.3 MCH (27.0 - 33.0 pg) 27.4 MCHC (33.0 - 37.0 g/dL) 31.4 L RDW (11.5 - 14.5 %) 13.9 Plt Count (150 - 400 x10 3/uL) 188 MPV (7.0 - 9.0 fL) 10.1 H Neut % (Auto) (56.0 - 77.0 %) 75.0 Lymph % (Auto) (14.0 - 32.0 %) 15.1 Boundary % (Auto) (4.8 - 9.0 %) 6.8 Eos % (Auto) (0.3 - 3.7 %) 2.3 Baso % (Auto) (0.0 - 2.0 %) 0.3 Neut # (Auto) (2.0 - 7.6 x10 3/uL) 6.51 Lymph # (Auto) (1.0 - 3.8 x10 3/uL) 1.31 Boundary # (Auto) (0.1 - 0.8 x10 3/uL) 0.59 Eos # (Auto) (0.0 - 0.2 x10 3/uL) 0.20 Baso # (Auto) (0.0 - 0.2 x10 3/uL) 0.03 Abs Immat Gran (auto) (0.00 - 0.03 0.04 H x10 3/uL) Add Manual Diff NO Immature Gran % (0.0 - 2.0 %) 0.5 Nucleated RBC % (0 - 0 %) 0.0 Nucleated RBCs # (Man) (0.0 - 0.1 0.00 x10 3/uL) 09/02 1732 Chemistry POC Glucose (70 - 110 MG/DL) 102 Microbiology: Date/Time Procedure - Status Source Growth 09/04 1037 Occult Blood - COLB STOOL 09/03 0415 MRSA DNA Surveillance Screen - COMP NASAL Medication(s) Ordered: Anti-Infective Agents Sig/Jan Start time Last Medication Dose Route Stop Time Status Admin Vancomycin HCl 1,000 MG Q24H 09/03 1500 AC 08/23 2 Sodium Chloride 250 ML IV 09/24 2359 1702 Miscellaneous 1 EACH ASDIR 09/03 0130 CKD Information IV 10/03 0129 Cefepime HCl 1 GM Q6H 09/02 2100 AC 09/04 Sodium Chloride 10 ML IV 09/13 205 0814 Blood Formation,Coagulation Sig/Jan Start time Last Medication Dose Route Stop Time Status Admin Heparin Sodium 5,000 UNIT Q8HR 09/02 2200 AC SUBQ 10/02 2159 0533 Cardiovascular Drugs Sig/Jan Start time Last Medication Dose Route Stop Time Status Admin Hydralazine HCl 10 MG Q6H PRN PRN 09/01 1330 AC IV 10/01 1329 Central Nervous System Agents Sig/Jan Start time Last Medication Dose Route Stop Time Status Admin Hydrocodone Bitart/ 1 TAB Q4H PRN PRN 09/03 140 0 AC 09/04 Acetaminophen PO 10/18 1300 0815 Hydromorphone HCl 1 MG Q6H PRN PRN 09/03 1400 A C 09/03 IV 10/18 1300 2221 Acetaminophen 650 MG Q6H PRN PRN 09/01 1330 AC PO 10/01 1329 Electrolytic, Caloric, And Daniel Sig/Jan Start time Last Medication Dose Route Stop Time Status Admin Sterile Water See Dose ASDIR PRN 09/03 2030 AC Insts (1) IRR 05/12 2029 Dextrose/Water 125 ML ASDIR PRN 09/03 1515 CKD IV 10/03 1514 Dextrose/Water 250 ML ASDIR PRN 09/03 1515 CKD IV 10/03 1514 Dextrose/Water 125 ML ASDIR PRN 09/01 1330 CKD 09/03 IV 10/01 1329 1148 Dextrose/Water 250 ML ASDIR PRN 09/01 1330 CKD IV 10/01 1329 Gastrointestinal Drugs Sig/Jan Start time Last Medication Dose Route Stop Time Status Admin Polyethylene Glycol 17 GM DAILY 09/05 09 AC PO 10/05 0859 Sennosides 8.6 MG DAILY 09/05 09 AC PO 10/05 0859 Bisacodyl 10 MG ONCE ONE 09/04 1515 DC RECTAL 09/04 1516 Bisacodyl 10 MG DAILY PRN PRN 09/01 1330 AC RECTAL 10/01 1329 Docusate Sodium 100 MG Q12H PRN PRN 09/01 1330 AC PO 10/01 1329 Ondansetron HCl 4 MG Q6H PRN PRN 09/01 1330 AC IV 10/01 1329 Hormones And Synthetic Substit Sig/Jan Start time Last Medication Dose Route Stop Time Status Admin Insulin Glargine 10 UNIT BEDTIME 09/03 2100 AC 09/03 SUBQ 10/03 2059 2222 Insulin Human Lispro 0 AC HS 09/03 1630 AC SUBQ 10/03 1629 Glucagon 1 MG ASDIR PRN 09/03 1515 AC IM 10/03 1514 Insulin Human Lispro 5 UNIT AC 09/03 0730 AC SUBQ 10/03 0729 1641 Insulin Human Lispro 0 AC HS 09/02 2100 DC SUBQ 10/02 2059 Glucagon 1 MG ASDIR PRN 09/01 1330 AC IM 10/01 1329 Local Anesthetics (Parenteral) Sig/Jan Start time Last Medication Dose Route Stop Time Status Admin Lidocaine 1 PATCH DAILY 09/03 0900 AC 09/04 TOPICAL 10/03 0859 0815 Skin And Mucous Membrane Agent Sig/Jan Start time Last Medication Dose Route Stop Time Status Admin Mupirocin 1 APPLIC BID 09/04 2100 AC NASAL 09/09 0901 Zinc Oxide 1 APPLIC DAILY 09/04 0900 AC 09/04 TOPICAL 10/04 0859 1340 Dose Instructions: (1)Sterile Water: DRESSING CHANGE Microbiology: 09/04 1037 STOOL: Occult Blood - COLB 09/03 0415 NASAL: MRSA DNA Surveillance Screen - COMP Portions of this section janice e scribed by Jill Quintero on 09/04/22 at 1524 Diagnosis, Assessment Plan Free Text A P: *MRSA bacteremia -Initial blood cultures from 08/18/2022 positive for MRSA in 2 out of 2 sets. -Repeat blood cultures 08/21/2022 are already po sitive for MRSA in 2 out of 2 sets, suggesting persistent high-grade bacteremi a. -TTE 08/18/2022 negative for any obvious vegetat ions. -08/28 neg -JIMENA 09/02 pending results *Prostatic abscess -s/p transrectal aspiration and unroofing on 08/26 -cx MRSA, citrobacter (r-cefazolin) Enterococcus raffinosus (S-amp,pcn, vancomycin), bacteriodes *ERIKA *Hyponatremia *Diabetic neuropathy *Diabetes mellitus type 2 *Hypertension 09/03 Follow JIMENA results; may need 6 weeks of daptomyc in if (+)VE -cont on Cefepime and Daptomycin til 09/24 for kellen atment of Prostate abscess -follow esr and crp Consultants: cardiology, endocrinology, hospital ist, infectious disease, podiatry Portions of this section janice e scribed by Jill Quintero on 09/04/22 at 1524 at 1700 RPT #:[id number] END OF REPORT 2022-09-04 15:13:00-00:00 [facility] ([facility] Pain Management Progress Note REPORT#:[id number] REPORT STATUS: Signed DATE:09/04/22 TIME: 1512 PATIENT: KARMA ROWLAND UNIT #: [id number] ROOM/BED: [place] [address] : 63 AGE: 56 SEX: M ATTEND: Fredy Vences MD ADM AUTHOR: Ben Klein PA * ALL edits or amendments must be made on the el ectronic/computer document * Ben Klein 09/04/22 1513: Subjective Chief complaint: Patient seen and examined. Chart/MAR reviewed. Patient is working with physical therapy. Jeannie ex plaine to use the Check more often to help with his BKA discomfort. He is sti ll requiring IV narcotics as well. He does express some b urning/stinging in his leg today, moderate intensity , discomfort at rest, no exa cerbate factors or alleviating factors. We discussed starting something for neuropathy. Patient being seen for Acute postoperative pain, right foot and ankle gangrene, requiring BKA, Constipation Patient is still requiring medications t o help with managing current problems. Patient is requiring IV narcotics to help manage breakthrough pain No fever/chills, chest pain, orthopnea, nausea/v omiting, pruritus, or hallucinations. 14 point ROS undertaken unremarkable except as n oted Objective General VS/I O: Vital Signs Date Temp Pulse Resp B/P B/P Mean Pulse Ox FiO2 09/03-09/04 36.4-36.7 80-92 16-18 128-159/65-79 85.6-104.5 96-100 Last Documented: Result Date Time Pulse Ox 99 09/04 0718 B/P 133/69 09/04 0718 B/P Mean 90.3 09/04 0718 O2 Delivery Room air 09/04 717 Temp 36.4 09/04 0718 Pulse 80 09/04 0718 Resp 18 09/04 0718 24 hour I O ending at 0700: 09/04 0700 09/03 1900 Intake Total 598 Output Total 400 Balance 198 Intake, Oral 598 Number 0 Incontinent Voids Number Voids 0 Output, Urine 400 Patient 75 kg Weight Weight Bed scale Measurement Method PATIENT WEIGHT: Weight (lb): 165 Weight (oz): 5.55 Weight (kg): 75.000 Medications: Active Meds + DC'd Last 24 Hrs Polyethylene Glycol (MIRALAX) 17 GM DAILY PO Sennosides (Senna Lax 8.6 MG TABLET) 8.6 MG MADALYN Y PO Mupirocin (BACTROBAN 2% 22 GM OINTMENT) 1 APPLIC BID NASAL (UNV) Bisacodyl (DULCOLAX) 10 MG ONCE ONE RECTAL (UNV) Zinc Oxide (ZINC OXIDE 30 GM OINTMENT) 1 APPLIC DAILY TOPICAL Insulin Glargine (Lantus/Semglee) 10 UNIT BEDTIM E SUBQ Sterile Water (WATER FOR IRRIGATION) DRESSING CH GELACIO ASDIR PRN IRR Insulin Human Lispro (HUMALOG) 0 AC HS SUBQ Dextrose/Water (DEXTROSE 10% IN WATER) 125 ML DIR PRN IV (CKD) Dextrose/Water (DEXTROSE 10% IN WATER) 250 ML DIR PRN IV (CKD) Glucagon (GLUCAGON) 1 MG ASDIR PRN IM Vancomycin HCl (VANCOMYCIN HCL) 1,000 MG Q24H IV Sodium Chloride (SODIUM CHLORIDE 0.9%) 250 ML Hydrocodone Bitart/Acetaminophen (NORCO 10/325) 1 TAB Q4H PRN PRN PO Hydromorphone HCl (DILAUDID) 1 MG Q6H PRN PRN IV Lidocaine (LIDODERM) 1 PATCH DAILY TOPICAL Insulin Human Lispro (HUMALOG) 5 UNIT AC SUBQ Miscellaneous Information (VANCOMYCIN PHARMACY T O DOSE) 1 EACH ASDIR IV (CKD) Heparin Sodium (HEPARIN 5000 UNITS/ML) 5,000 UNI T Q8HR SUBQ Cefepime HCl (MAXIPIME) 1 GM Q6H IV Sodium Chloride (SODIUM CHLORIDE) 10 ML Insulin Human Lispro (HUMALOG) 0 AC HS SUBQ (DC ) Acetaminophen (TYLENOL) 650 MG Q6H PRN PRN PO Bisacodyl (DULCOLAX) 10 MG DAILY PRN PRN RECTAL Dextrose/Water (DEXTROSE 10% IN WATER) 125 ML DIR PRN IV (CKD) Dextrose/Water (DEXTROSE 10% IN WATER) 250 ML DIR PRN IV (CKD) Docusate Sodium (COLACE) 100 MG Q12H PRN PRN PO Glucagon (GLUCAGON) 1 MG ASDIR PRN IM Hydralazine HCl (APRESOLINE) 10 MG Q6H PRN PRN I V Ondansetron HCl (ZOFRAN) 4 MG Q6H PRN PRN IV Physical Exam General appearance: alert, awake, oriented, no a cute distress Head/eyes: atraumatic, EOMI, normocephalic, norm al conjunctiva/sclera, PERRLA ENT: normal pharynx, moist mucosal membranes Neck: full range of motion, no lymphadenopathy, supple/no meningismus Cardiovascular: regular rate rhythm Respiratory: clear to auscultation, no distress Abdomen: soft, non-tender, no distention , active bowel sounds in all quarants. 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, no sensory deficit s, CNII-XII grossly intact Considered stroke alert: no Skin: dry, intact, no rash Results Findings/data: Laboratory Tests: 09/04 09/04 09/04 09/04 09/04 1100 1031 0816 0721 0540 Chemistry POC Glucose (70 - 110 MG/DL) 107 99 87 Hematology Hgb (12.5 - 16.9 g/dL) 7.7 L 6.8 L Hct (37.5 - 50.7 %) 23.7 L 21.2 L 09/03 09/03 09/03 1944 1836 1622 Chemistry POC Glucose (70 - 110 MG/DL) 124 H 135 H Toxicology Vancomycin Peak (30 - 40 MCG/ML) 27.4 L Microbiology: Date/Time Procedure - Status Source Growth 09/04 1037 Occult Blood - COLB STOOL Diagnosis, Assessment Plan Free text A P: A/P: Patient is a 56 year old male who presents with: Past Medical History: Prostate abscess, right fo ot foot and ankle gangrene, diabetes, hypertension, hyperlipidemia Past Surgical History: TURP, right BKA Family History: Noncontributory Social History: Denies tobacco, alcohol, or drug use Allergies: NKDA Recent prostate abscess -Status post TURP with unroofing of abscess -IV antibiotics with vancomycin until 09-24-2022 Acute postoperative pain, right foot and ankle g angrene, requiring BKA -Patient is at risk for further amputations or l oss of limb due to comorbid conditions -Status post right BKA 08/28/2022 -Tylenol 650 mg p.o. every 6 hours as needed ofelia n scale 1 3 -Check 10/325 1 tablet p.o. every 4 hours as nee ded pain scale 4 10 -Dilaudid 1 mg IV every 6 ho urs as needed pain scale 7 10, second line therapy- patient will require close monitoring while usin g IV narcotics for any deleterious effect -Lidoderm patch to left ankle daily -IV antibiotics with vancomycin until 09-24-2022 -Local wound care -manageable Diabetic peripheral neuropathy -patient is based on adrenal insufficiency -will start amitriptyline 25mg PO QHS - Uncontrolled diabetes, diabetes with complicatio ns, recent DKA -Hemoglobin A1c 13.4 -Recent right foot and ankle gangrene -Insulin sliding scale, FSBS, good glycemic cont rol Hypertension -We will monitor hypertension and tachycardia du e to pain, and hypotension as well as bradycardia secondary over sedation with narcotics -Hydralazine as needed - Elevated LFTs -08/20/22-AST 51, ALT 22 -09/03/2022-AST 15, ALT 7 -Patient will require close monitoring since he is using narcotics with Tylenol Impaired functional mobility, balance, gait, and endurance -PT/OT Constipation -We will monitor while utilizing opioid narcotic medications. -Adequate fluid intake also discussed. -Colace 100 mg p.o. twice daily as needed -Dulcolax 10 mg rectally daily as needed -manageable Patient has failed conservative medical therapy. Patient will require monitoring while utilize na rcotic medications for any adverse effects, and will adjust as needed Plan of care discussed with patient and nurse All diagnostics of last 24 hours been reviewed. Risks versus benefits of opioid medications were reviewed to include, but not limited to respiratory depression, accid ental overdose, altered mental status, sudden , constipation which could result in bowel obstruction, seizures, withdrawal, dependency addiction, risk for falls . Case discussed with Dr Ng whom agrees. Thank you for the consultation. [place] [facility] NURSE: -database searched, no information found Kingsley Ng 09/23/22 0653: Attestations Physician Attestation Agree w/findings plan: The patient was seen and exa mined by Ben Klein. I personally developed the care plan, which was continued by the mid-level provider. I was immediately available. at 1526 Electronically Signed by Kingsley Ng MD on 3 at 0656 RPT #:[id number] END OF REPORT 2022-09-04 12:35:00-00:00 [facility]Van[facility] REPORT#:[id number] REPORT STATUS: Signed DATE:09/04/22 TIME: 1235 PATIENT: KARMA ROWLAND UNIT #: [id number] [place] [facility] [place] AGE: 56 SEX: M ATTEND: Fredy Vences MD ADM AUTHOR: Wilian Jasso h * ALL edits or amendments must be made on the [employer]/computer document * Vancomycin Vancomycin Medication Therapy Goal: AUC 400-600 mg*hr/L Indication for treatment: OM and MRSA Bacteremia Current therapy: vanc 1 g IV Q24H VS and I/O: Vital Signs Date Temp Pulse Resp B/P B/P Mean Pulse Ox FiO2 09/02-09/04 97.3-99.1 80-92 16-18 116-164/50-85 72.3-111.0 94-100 72 hours ending at 0700 09/04 0700 09/03 1900 09/03 0700 09/02 1900 09/01 0700 1900 Intake 598 240 Total Output 400 850 Total Balance 198 -610 Intake, 598 240 Oral Number 0 0 Incontinen t Voids Number 0 1 Voids Output, 400 850 Urine Patient 75 kg Weight Weight Bed scale Measuremen t Method 72 Hour I O Total 09/04 0700 09/03 0700 09/02 0700 Intake Total 598 240 Output Total 400 850 Balance 198 -610 Labs: Laboratory Tests: 09/03 183 Toxicology Vancomycin Peak (30 - 40 MCG/ML) 27.4 L Laboratory Test : 09/035 Chemistry BUN (7 - 18 mg/dL) 22 H Creatinine (0.6 - 1.3 mg/dL) 1.1 Hematology WBC (4.5 - 11.0 x10 3/uL) 8.7 Microbiology: 09/04 1037 STOOL: Occult Blood - COLB 09/03 0415 NASAL: MRSA DNA Surveillance Screen - COMP Treatment plan: consult, cont current regimen/do se Regimen: 56yr old male with history of diabetes mellitus type 2, hypertension who was admitted with altered mental status and right-si ded foot infection. According to him, he noticed a blister on his right foot a round 3 days prior to presentation on 08/18. His foot got progressively more swollen and erythema extended proximally to his lateral foot and ankl e. CT abdomen and pelvis with contrast is concerning for possible prostate abs cess. CT of lower extremity without contrast shows extensive soft tissue rose ma with mottled gas in the subcutaneous and intramuscular compartments of t he foot, compatible with gas- forming infection. Patient's blood cultures have come back positive for MRSA in 2 out of 2 sets. PT has had persistent (+)Ve cx for MRSA 08/18- 08/22. He underwent a debridement of h is foot on 08/19 and cx grew MRSA. PT was started on Vancomycin and clindamycin on 08/18. His MRI show ed a prostate abscess. 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 Patient is s/p ICU stay with merrem/ daptomycin. ID adjusting regimen to cefe pime/vancomycin. Pharmacy consulted to dose vancomycin. Consulting provider: Dr. Wolff Indication: MRSA Bacteremia Goal: AUC 400-600 mcg*hr/ml A/P 09/03: * Pt transferred from [facility] to [facility]. * Afebrile, WBC 8.7 * 09/03 BUN 22, SCr 1.1, eCrCl 66 ml/min, UOP 400 ml/24hrs * Micro: 08/26 prostate abscess: C farmeri , MRSA, E raffinosus. 08/18, 08/19, 08/21 , 08/22, 08/25 blood MRSRA. 08/28 blood - NGTD, MRSA screen neg * Imagin/30 MRI - OM of talus, caeianeus and navicular bone; JIMENA - negative for endocarditis * Regimen: End date 09/24 per ID. Pt was on vanc to 08/24. Regimen then adjusted to daptomycin and teflaro on 08/25. Vanc restarted on 09/01 with vancomycin 1 g IV q24h. * Monitoring: Vanc peak on 09/03 at 1830 = 27.7 m cg/ml, drawn 30 mins after infusion. Vanc trough to be due 09/04 at 1630 (d/w RN) AUC Goal 400-600 mcg*hr/ ml. * Pharmacy will monitor and adjust dose as alexander rodrigez Thanks for the consult. at 1237 RPT #:[id number] END OF REPORT 2022-09-04 10:37:00-00:00 [facility] Cardiology Progress Note REPORT#:[id number] REPORT STATUS: Signed DATE:09/04/22 TIME: 1037 PATIENT: KARMA ROWLAND UNIT #: [id number] [place]: [facility] [place] AGE: 56 SEX: M ATTEND: Fredy Vences MD ADM AUTHOR: Rohit Benitez CLAY MILLER * ALL edits or amendments must be made on the [employer]/computer document * Rohit Benitez 09/04/22 1037: Subjective Chief complaint: weakness Free Text Subj Notes Free Text Subj Notes: Patient seen and evaluated. Resting in bed, complaining of abdominal distention and leg swelling. Denies chest pain or pressure. Objective General VS/I O: 24 hour I O ending at 0700: 09/04 0700 09/03 1900 Intake Total 598 Output Total 400 Balance 198 Intake, Oral 598 Number 0 Incontinent Voids Number Voids 0 Output, Urine 400 Patient 165 lb Weight Weight Bed scale Measurement Method Vital Signs: Date Time Temp Pulse Resp B/P B/P Pulse O2 O2 F low FiO2 Mean Ox Delivery Rate 09/04 0718 97.5 80 18 133/69 90.3 99 Room air 09/03 2328 97.5 82 16 128/65 85.6 96 09/03 1920 98.1 92 16 154/79 103.6 97 09/03 1621 97.5 89 17 159/77 104.5 100 PATIENT WEIGHT: Weight (lb): 165 Weight (oz): 5.55 Weight (kg): 75.000 Medications: Active Meds + DC'd Last 24 Hrs Zinc Oxide (ZINC OXIDE 30 GM OINTMENT) 1 APPLIC DAILY TOPICAL Insulin Glargine (Lantus/Semglee) 10 UNIT BEDTIM E SUBQ Sterile Water (WATER FOR IRRIGATION) DRESSING CH GELACIO ASDIR PRN IRR Insulin Human Lispro (HUMALOG) 0 AC HS SUBQ Dextrose/Water (DEXTROSE 10% IN WATER) 125 ML DIR PRN IV (CKD) Dextrose/Water (DEXTROSE 10% IN WATER) 250 ML DIR PRN IV (CKD) Glucagon (GLUCAGON) 1 MG ASDIR PRN IM Vancomycin HCl (VANCOMYCIN HCL) 1,000 MG Q24H IV Sodium Chloride (SODIUM CHLORIDE 0.9%) 250 ML Hydrocodone Bitart/Acetaminophen (NORCO 10/325) 1 TAB Q4H PRN PRN PO Hydromorphone HCl (DILAUDID) 1 MG Q6H PRN PRN IV Lidocaine (LIDODERM) 1 PATCH DAILY TOPICAL Insulin Human Lispro (HUMALOG) 5 UNIT AC SUBQ Miscellaneous Information (VANCOMYCIN PHARMACY T O DOSE) 1 EACH ASDIR IV (CKD) Heparin Sodium (HEPARIN 5000 UNITS/ML) 5,000 UNI T Q8HR SUBQ Cefepime HCl (MAXIPIME) 1 GM Q6H IV Sodium Chloride (SODIUM CHLORIDE) 10 ML Insulin Glargine (Lantus/Semglee) 15 UNIT BEDTI ME SUBQ (DC) Insulin Human Lispro (HUMALOG) 0 AC HS SUBQ (DC) Vancomycin HCl (VANCOMYCIN HCL) 1,000 MG DAILY 1 400 IV (DC) Sodium Chloride (SODIUM CHLORIDE 0.9%) 250 ML Hydromorphone HCl (DILAUDID) 1 MG Q3H PRN PRN IV (DC) Hydromorphone HCl (DILAUDID) 0.5 MG Q3H PRN PRN IV (DC) Acetaminophen (TYLENOL) 650 MG Q6H PRN PRN PO Bisacodyl (DULCOLAX) 10 MG DAILY PRN PRN RECTAL Dextrose/Water (DEXTROSE 10% IN WATER) 125 ML DIR PRN IV (CKD) Dextrose/Water (DEXTROSE 10% IN WATER) 250 ML DIR PRN IV (CKD) Docusate Sodium (COLACE) 100 MG Q12H PRN PRN PO Glucagon (GLUCAGON) 1 MG ASDIR PRN IM Hydralazine HCl (APRESOLINE) 10 MG Q6H PRN PRN IV Ondansetron HCl (ZOFRAN) 4 MG Q6H PRN PRN IV Physical Exam General appearance: alert, awake, oriented Neck: no bruit/NL carotids, no JVD Cardiovascular: CV assessment: regular rate and rhythm, no ecto py, no gallop Respiratory: clear to auscultation, no distress Abdomen: soft, non-tender Lower extremity: LE assessment: edema, normal temperature 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 X 3 Considered stroke alert: no Wound/incision: Location: right bka Psychiatry: normal affect, normal judgment/insig ht, normal mood Results Findings/Data: Laboratory Tests 09/04 09/04 09/03 09/03 09/03 0816 0721 1944 1622 1233 Chemistry POC Glucose (70 - 110 MG/DL) 99 87 124 H 135 H 136 H 09/03 09/03 1143 1116 Chemistry POC Glucose (70 - 110 MG/DL) 50 L 44 L Laboratory Tests 09/04 0540 Hematology Hgb (12.5 - 16.9 g/dL) 6.8 L Hct (37.5 - 50.7 %) 21.2 L Laboratory Tests 09/03 183 Toxicology Vancomycin Peak (30 - 40 MCG/ML) 27.4 L Diagnosis, Assessment Plan Consultants: cardiology, endocrinology, hospital ist, infectious disease, podiatry Free Text DxA P Notes Free Text DxA P Notes: Impression: 1. Debility 2. Infected right foot status post BKA 3. Bacteremia 4. Diabetes 5. Hypertension 6. Anemia Recommendation: Patient initially presented with DKA and sepsis. Diagnosed with right foot infection, underwent I D, now status post BKA. P atient had persistent bacteremia with MRSA, underwent JIMENA with negativ e findings of endocarditis. Patient now transferred to [facility] for physical therapy. Known cardiac history of hypertension and hyperlipide renetta. Vital signs stable. Echocardiogram with normal LVEF, grade 1 diastolic dysfunction, mildly dila carlos LA, and no significant valvular abnormalities. Continue to monitor bloo d pressure trend. Continue wound care and IV antibiotic therapy. Continue P T/OT. Supportive care. 09/04: Patient complaining of shortness of breath, abdominal distention and lower extremity edema. Renal function and electrolytes stable. Will give one-time dose of IV Lasix 40 mg. Blood pressure stable. P ending abdominal x-ray. Monitor intake and output. Check BMP in the morn ing. Supportive care. Plan of care discussed with patient, RN and Dr. Parham. Gianni Parham 09/06/22 1632: Diagnosis, Assessment Plan Additional comments: Patient was seen and examined at bedside , agree with above assessment and plan as documented by nurse practitioner. Monitor I's and O's. Will follow. Electronically Signed by Rohit Benitez NP on 0 09/04/22 at 1831 at 1637 RPT #:[id number] END OF REPORT 2022-09-04 10:31:00-00:[address] [facility] ([facility]) Rehab Progress Note REPORT#:[id number] REPORT STATUS: Signed DATE:09/04/22 TIME: 1031 PATIENT: KARMA ROWLAND UNIT #: [id number] ROOM/BED: [place] [id number] : 61 AGE: 56 SEX: M ATTEND: Fredy Vences MD ADM AUTHOR: Mj Vences MD * ALL edits or amendments must be made on the [employer] document * Subjective Chief complaint: Rehabilitation follow-up Patient complaining of decreased appetite and ab dominal fullness, no pain Placed on stool softeners Patient very motivated Eating Denies nausea, vomiting, fever, chills, chest pa in, shortness of breath History of present illness: 56 yo HAM with long h/o DM, and HTN who was admitted for fever, flulike symptoms and altered mental status on 08/18. He was doing well until about 3 days prior to admission when he noted blister to have formed o n the dorsum of his foot. His foot started progressively getting more swollen and the blisters started enlarging and extending to his lateral f oot and ankle. He started feeling weak and nauseated. He was noted to have altered mentation and was brought to our ER. He was noted to be in DKA with Blood sugars grea ter than 600. He was seen by podiatry and surgery for BLE wounds and infectio n. He was treated in ICU for sepsis and DKA. He underwent incisional and excisional debridement of right foot and right ankle by podiatry. Patient also found to have prostate abscess underwent transrectal ultrasound aspiration of a bscess and transurethral resection of prostate and unroofing of abscess b y urology Dr. Bass. Endocrinology treated the DKA and blood sugars m uch improved. Patient's right foot was not salvageable and patient und erwent right BKA by Dr. LEROY on 08/28. Patient blood cultures showe d MRSA. Patient continued on antibiotics as per ID. MRI of the pelvis and foot completed. Patient r equired multiple PRBCs for anemia. Patient was found to have a possible small hematoma of the left calf on ultrasound. He complains of pain and swelling of the left ankle. Patient hemodynamically stable and plans are to be transferred to stepdown unit. He is on heparin subcu for VTE. Af ter surgery he is now being mobilized by PT and OT. He is wearing a [employer]or-[employer] orthotic for right knee /BKA protection. Prior to admission the patient was independent living in a single-story house with his spouse with a few steps up to front and back doo r. 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 is at bedside. Patient denies nausea, vomiting, fever, chills, chest pain, shortness of breath with diz ziness. He is requiring IV Dilaudid for pain control. Mental status back to baseline. Pt is progressing slowly with therapy d/t weakness and pain, self care deficit, decreased endurance and balance, and decreased functional mobility. Pt requiring acute inpt rehab for multidiscipli nary team of nursing, therapy, and physicians. Pt is willing and able to partici- kathleen in 3 hr/day inpt rehab to d/c home safely. Pt' s prior level of function was independent. Objective General VS: Vital Signs: Date Time Temp Pulse Resp B/P B/P Pulse O2 O2 F low FiO2 Mean Ox Delivery Rate 09/04 0718 97.5 80 18 133/69 90.3 99 Room air 09/03 2328 97.5 82 16 128/65 85.6 96 09/03 1920 98.1 92 16 154/79 103.6 97 09/03 1621 97.5 89 17 159/77 104.5 100 PATIENT WEIGHT: Weight (lb): 165 Weight (oz): 5.55 Weight (kg): 75.000 Medications: Active Meds + DC'd Last 24 Hrs Zinc Oxide (ZINC OXIDE 30 GM OINTMENT) 1 APPLIC DAILY TOPICAL Insulin Glargine (Lantus/Semglee) 10 UNIT BEDTIM E SUBQ Sterile Water (WATER FOR IRRIGATION) DRESSING CH GELACIO ASDIR PRN IRR Insulin Human Lispro (HUMALOG) 0 AC HS SUBQ Dextrose/Water (DEXTROSE 10% IN WATER) 125 ML DIR PRN IV (CKD) Dextrose/Water (DEXTROSE 10% IN WATER) 250 ML DIR PRN IV (CKD) Glucagon (GLUCAGON) 1 MG ASDIR PRN IM Vancomycin HCl (VANCOMYCIN HCL) 1,000 MG Q24H IV Sodium Chloride (SODIUM CHLORIDE 0.9%) 250 ML Hydrocodone Bitart/Acetaminophen (NORCO 10/325) 1 TAB Q4H PRN PRN PO Hydromorphone HCl (DILAUDID) 1 MG Q6H PRN PRN IV Lidocaine (LIDODERM) 1 PATCH DAILY TOPICAL Insulin Human Lispro (HUMALOG) 5 UNIT AC SUBQ Miscellaneous Information (VANCOMYCIN PHARMACY T O DOSE) 1 EACH ASDIR IV (CKD) Heparin Sodium (HEPARIN 5000 UNITS/ML) 5,000 UNI T Q8HR SUBQ Cefepime HCl (MAXIPIME) 1 GM Q6H IV Sodium Chloride (SODIUM CHLORIDE) 10 ML Insulin Glargine (Lantus/Semglee) 15 UNIT BEDTIM E SUBQ (DC) Insulin Human Lispro (HUMALOG) 0 AC HS SUBQ (DC) Vancomycin HCl (VANCOMYCIN HCL) 1,000 MG DAILY 1 400 IV (DC) Sodium Chloride (SODIUM CHLORIDE 0.9%) 250 ML Hydromorphone HCl (DILAUDID) 1 MG Q3H PRN PRN IV (DC) Hydromorphone HCl (DILAUDID) 0.5 MG Q3H PRN PRN IV (DC) Acetaminophen (TYLENOL) 650 MG Q6H PRN PRN PO Bisacodyl (DULCOLAX) 10 MG DAILY PRN PRN RECTAL Dextrose/Water (DEXTROSE 10% IN WATER) 125 ML DIR PRN IV (CKD) Dextrose/Water (DEXTROSE 10% IN WATER) 250 ML DIR PRN IV (CKD) Docusate Sodium (COLACE) 100 MG Q12H PRN PRN PO Glucagon (GLUCAGON) 1 MG ASDIR PRN IM Hydralazine HCl (APRESOLINE) 10 MG Q6H PRN PRN I V Ondansetron HCl (ZOFRAN) 4 MG Q6H PRN PRN IV Physical Exam General appearance: alert, awake, no acute distr ess Psych: alert, normal affect, oriented x 3 HEENT: anicteric, sclera clear Neck: supple, no JVD Cardiovascular: S1/S2, no murmur Respiratory: aerating well, clear bilaterally Abdomen: bowel sounds present, non-distended, so ft, non-tender Skin: no rash, R BKA wrapped with kerlix and ORAILA . L ankle/foot wrapped with kerlix Musculoskeletal - general: Musculoskeletal - general: BUE 5/5, LLE 4/5, R hip 3- 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 X 3, CNII-XII intact Results Findings/Data: Laboratory Tests 09/02 09/02 09/02 09/02 09/03 1513 1732 1908 1929 0415 Chemistry Sodium (134 - 147 mEq/L) 135 Potassium (3.4 - 5.0 mEq/L) 4.6 Chloride (100 - 108 mEq/L) 111 Carbon Dioxide (21 - 33 mEq/l) 22 Anion Gap (0 - 20) 6 BUN (7 - 18 mg/dL) 22 Creatinine (0.6 - 1.3 mg/dL) 1.1 Glomerular Filtr Rate (90 - 95) 77.8 Glucose (70 - 110 mg/dL) 92 POC Glucose (70 - 110 MG/DL) 257 102 159 210 Calcium (8.0 - 10.5 mg/dL) 7.9 Magnesium (1.80 - 2.40 mg/dL) 1.89 Total Bilirubin (0.0 - 1.0 mg/dL) 0.30 AST (15 - 37 IUnit/L) 15 ALT (30 - 65 IUnit/L) < 7 Total Alk Phosphatase (20 - 125 IUnit/L) 93 Total Protein (6.4 - 8.2 g/dL) 6.7 Albumin (3.4 - 5.0 g/dL) 1.30 Prealbumin (16.0 - 40.0 mg/dL) < 5.0 Hematology WBC (4.5 - 11.0 x10 3/uL) 8.7 RBC (4.00 - 5.60 x10 6/uL) 2.92 Hgb (12.5 - 16.9 g/dL) 8.0 Hct (37.5 - 50.7 %) 25.5 MCV (81.0 - 99.0 fL) 87.3 MCH (27.0 - 33.0 pg) 27.4 MCHC (33.0 - 37.0 g/dL) 31.4 RDW (11.5 - 14.5 %) 13.9 Plt Count (150 - 400 x10 3/uL) 188 MPV (7.0 - 9.0 fL) 10.1 Neut % (Auto) (56.0 - 77.0 %) 75.0 Lymph % (Auto) (14.0 - 32.0 %) 15.1 Boundary % (Auto) (4.8 - 9.0 %) 6.8 Eos % (Auto) (0.3 - 3.7 %) 2.3 Baso % (Auto) (0.0 - 2.0 %) 0.3 Neut # (Auto) (2.0 - 7.6 x10 3/uL) 6.51 Lymph # (Auto) (1.0 - 3.8 x10 3/uL) 1.31 Boundary # (Auto) (0.1 - 0.8 x10 3/uL) 0.59 Eos # (Auto) (0.0 - 0.2 x10 3/uL) 0.20 Baso # (Auto) (0.0 - 0.2 x10 3/uL) 0.03 Abs Immat Gran (auto) (0.00 - 0.03 0.04 x10 3/uL) Add Manual Diff NO Immature Gran % (0.0 - 2.0 %) 0.5 Nucleated RBC % (0 - 0 %) 0.0 Nucleated RBCs # (Man) (0.0 - 0.1 x10 3/uL) 0.0 0 09/03 09/03 09/03 09/03 09/03 0415 0518 1116 1143 1233 Chemistry POC Glucose (70 - 110 MG/DL) 88 44 50 136 Albumin Cancelled Prealbumin Cancelled 09/03 09/03 09/03 09/04 09/04 1622 1836 1944 0540 0721 Chemistry POC Glucose (70 - 110 MG/DL) 135 124 87 Hematology Hgb (12.5 - 16.9 g/dL) 6.8 Hct (37.5 - 50.7 %) 21.2 Toxicology Vancomycin Peak (30 - 40 MCG/ML) 27.4 09/04 09/04 09/04 09/04 0816 1031 1100 1430 Chemistry POC Glucose (70 - 110 MG/DL) 99 107 Hematology Hgb (12.5 - 16.9 g/dL) 7.7 Hct (37.5 - 50.7 %) 23.7 Toxicology Vancomycin Trough Cancelled Diagnosis, Assessment Plan Problem List/A P: 1. Gangrene of right foot 2. 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 MRSA bacteremia 4. Cellulitis of foot, right 5. DKA (diabetic ketoacidosis) 6. Hyperglycemia 7. ERIKA (acute kidney injury) 8. Postoperative pain 9. Acute anemia 10. Prostate abscess 11. Impaired functional mobility, balance, gait , and endurance Free Text A P: 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 Leroy Significant impairment in self-care, ADLs and fu nctional mobility Impaired mobility and gait Postoperative pain Diabetic polyneuropathy DKA, DM 2, poorly controlled, A1c greater than 1 4 PAD MRSA bacteremia/sepsis-treated on acute ERIKA Severe hyponatremia-resolved HTN Acute on chronic anemia requiring multiple trans fusions Left calf hematoma Edema and clinical arthritis left ankle Early decubitus to left heel/DTI dorsal left mid foot Prostatic abscess 08/26: S/p transrectal ultrasound aspiration of ab scess and transurethral resection of prostate and unroofing of abscess 09/02: JIMENA negative for vegetation MRSA OF NARES Plan: -PLOF: Independent with transfers and gait -Amputee rehab program -Continue PT and OT -15/12 rehabilitation nursing care. -Case management for safe discharge planning. -Decubitus prevention -Early decubitus to left heel/DTI dorsal left mi dfoot-zinc oxide to the foot, foam, offloading, podiatry managing -DVT prophylaxis-subcutaneous heparin -Strict fall and safety precautions -Work on bed mobility, transfer training, ADLs, pre-gait and gait exercises -Increase endurance and strength -Monitor pain with therapies -OOB to chair -Monitor p.o. intake and nut rition, albumin 1.3, prealbumin less than 5, dietary consultation, protein supplements to promote hea ling -Continue antibiotics per ID -Tight glycemia control- endocrine on board, ins ulin adjustments -Endocrinology, ID, podiatry, cardiology, IM con sulted -Consult pain management -Labs reviewed-WBC normal, h emoglobin 8, 6.8, 7.7 platelets normal, chemistries good, creatinine 1.1, magnesium normal -Anemia, repeat H H improved, patient did requir e multiple units of PRBCs on acute, check FOBT -Right DDR-iynyjvt-mbwsgtzy resolved, dr martinez changed nruts-siqvefe-dcykjhtg Nestor-TECH -MRSA OF NARES on Bactroban protocol -Constipation-abdominal fullness-check KUB-add S enokot and MiraLAX, DSP -Advance therapies as tolerated -Patient benefiting from the rapies and improving mobility and strength, requires max assist for transfers due to weakness and amp utation Progress: PATIENT WORKED ON BED MOB, ABLE TO SIT UP EOB WITH MIN A , TRANSFERS TO WC WITH MAX A KEEPING RLE NWB. NESTOR T TECH ONE. PATIENT WORKED ON WC MOB WITH MOD A FOR TURNS A ND PROPULSION ,IN THE GYM PATIENT WORKED ON LEEX IN SITTING T O INCREASE STRENGTH, WC PUSHUPS TO IMPROVE UE STRENGTH, PATIENT WORKED ON SIT TO STANDS IN PARALLEL BARS WITH [place] A AND STATIC STANDING BALANCE WITH MOD A. PATIENT WORKED ON TRANSFERS TO TOILET WITH MAX A TO LEFT AND MOD A TO R. EDUCATED ON USE OF SB Total time 35 minutes greater than 50% of the ti me spent examining patient, discussing with patient abou t constipation, anemia, amputation rehab, rehab plan of care, goals, therapies, progress, lab s, medications. All questions answered Orders: Procedure Date/time Status HGB HCT 09/05 0400 Active XR ABDOMEN AP 1V 09/04 1156 Active FECAL OCCULT BLOOD 09/04 1037 Active OT FUNCTIONAL TRN 15 MIN 09/04 UNK Complete OT EXERCISE 15MIN 09/04 UNK Complete Consultants: cardiology, endocrinology, hospital ist, infectious disease, podiatry Rehab attestation: Face to face exam completed. Treatment plan disc ussed with patient. Meets continued stay criteria. Agree with interdiscipl inary treatment plan. at 1524 RPT #:[id number] END OF REPORT 2022-09-04 09:02:00-00:[address] [facility] [facility]) Hospitalist Progress Note REPORT#:[id number] REPORT STATUS: Signed DATE:09/04/22 TIME: 901 PATIENT: KARMA ROWLAND UNIT #: [id number] [place]ED[place] [facility] [place] : [place] AGE: 56 SEX: M ATTEND: Fredy Vences MD ADM AUTHOR: Wilbert Ramires MD * ALL edits or amendments must be made on the el ectronic/computer document * Subjective Chief complaint: admitted to rehab. participating with therapy Review of Systems All systems rev neg: except as noted Objective General VS/I O: Vital Signs: Date Time Temp Pulse Resp B/P B/P Pulse O2 O2 F low FiO2 Mean Ox Delivery Rate 09/04 07 97.5 80 18 133/69 90.3 99 Room air 09/03 2328 97.5 82 16 128/65 85.6 96 09/03 1920 98.1 92 16 154/79 103.6 97 09/03 1621 97.5 89 17 159/77 104.5 100 24 hour I O ending at 0700: 09/04 0700 09/03 1900 Intake Total 598 Output Total 400 Balance 198 Intake, Oral 598 Number 0 Incontinent Voids Number Voids 0 Output, Urine 400 Patient 75 kg Weight Weight Bed scale Measurement Method PATIENT WEIGHT: Weight (lb): 165 Weight (oz): 5.55 Weight (kg): 75.000 Medications: Active Meds + DC'd Last 24 Hrs Zinc Oxide (ZINC OXIDE 30 GM OINTMENT) 1 APPLIC DAILY TOPICAL Insulin Glargine (Lantus/Semglee) 10 UNIT BEDTIM E SUBQ Sterile Water (WATER FOR IRRIGATION) DRESSING CH GELACIO ASDIR PRN IRR Insulin Human Lispro (HUMALOG) 0 AC HS SUBQ Dextrose/Water (DEXTROSE 10% IN WATER) 125 ML DIR PRN IV (CKD) Dextrose/Water (DEXTROSE 10% IN WATER) 250 ML DIR PRN IV (CKD) Glucagon (GLUCAGON) 1 MG ASDIR PRN IM Vancomycin HCl (VANCOMYCIN HCL) 1,000 MG Q24H IV Sodium Chloride (SODIUM CHLORIDE 0.9%) 250 ML Hydrocodone Bitart/Acetaminophen (NORCO 10/325) 1 TAB Q4H PRN PRN PO Hydromorphone HCl (DILAUDID) 1 MG Q6H PRN PRN IV Lidocaine (LIDODERM) 1 PATCH DAILY TOPICAL Insulin Human Lispro (HUMALOG) 5 UNIT AC SUBQ Miscellaneous Information (VANCOMYCIN PHARMACY T O DOSE) 1 EACH ASDIR IV (CKD) Heparin Sodium (HEPARIN 5000 UNITS/ML) 5,000 UNI T Q8HR SUBQ Cefepime HCl (MAXIPIME) 1 GM Q6H IV Sodium Chloride (SODIUM CHLORIDE) 10 ML Insulin Glargine (Lantus/Semglee) 15 UNIT BEDTIM E SUBQ (DC) Insulin Human Lispro (HUMALOG) 0 AC HS SUBQ (DC) Vancomycin HCl (VANCOMYCIN HCL) 1,000 MG DAILY 1 400 IV (DC) Sodium Chloride (SODIUM CHLORIDE 0.9%) 250 ML Hydromorphone HCl (DILAUDID) 1 MG Q3H PRN PRN IV (DC) Hydromorphone HCl (DILAUDID) 0.5 MG Q3H PRN PRN IV (DC) Acetaminophen (TYLENOL) 650 MG Q6H PRN PRN PO Bisacodyl (DULCOLAX) 10 MG DAILY PRN PRN RECTAL Dextrose/Water (DEXTROSE 10% IN WATER) 125 ML DIR PRN IV (CKD) Dextrose/Water (DEXTROSE 10% IN WATER) 250 ML DIR PRN IV (CKD) Docusate Sodium (COLACE) 100 MG Q12H PRN PRN PO Glucagon (GLUCAGON) 1 MG ASDIR PRN IM Hydralazine HCl (APRESOLINE) 10 MG Q6H PRN PRN I V Ondansetron HCl (ZOFRAN) 4 MG Q6H PRN PRN IV Physical Exam General appearance: alert, awake, oriented Head/Eyes: atraumatic, clear cornea Neck: full range of motion, non-tender Cardiovascular: normal capillary refill, normal heart sounds, regular rate rhythm Respiratory: aerating well, clear to auscultatio n Abdomen: non-tender, normal bowel sounds Genitourinary: no flank pain Extremities: moves all, normal capillary refill Musculoskeletal: normal inspection, painless ran ge of motion 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 X 3, 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 Considered stroke alert: no Skin: dry, intact Psychiatry: normal affect, normal judgment/insig ht Results Findings/Data: Laboratory Tests 09/04 09/04 09/03 09/03 09/03 0816 0721 1944 1622 1233 Chemistry POC Glucose (70 - 110 MG/DL) 99 87 124 H 135 H 136 H 09/03 09/03 1143 1116 Chemistry POC Glucose (70 - 110 MG/DL) 50 L 44 L Laboratory Tests 09/04 0540 Hematology Hgb (12.5 - 16.9 g/dL) 6.8 L Hct (37.5 - 50.7 %) 21.2 L Laboratory Tests 09/03 1836 Toxicology Vancomycin Peak (30 - 40 MCG/ML) 27.4 L Diagnosis, Assessment Plan Consultants: cardiology, endocrinology, hospital ist, infectious disease, podiatry Free Text DxA P Notes Free text DxA P notes: Gangrene of right foot s/p Below- knee amputatio n Prostate abscess MRSA bacteremia Hx of Diabetes, Diabetic neuropathy PLANS: Continue with ABx as dierected- currently on Dap tomycin and Cefepime Continue with PT/OT per primary Fall precautions Nutritional support pain control Tight glycemia control- endocrine on board, insu jahaira adjustments Wound care as directed Hepain PPX Continue with supportive / care Electronically Signed by Wilbert Ramires MD on at 1105 [facility] #:[id number] END OF REPORT 2022-09-04 08:56:00-00:00 [id number] [place] [address] PATIENT NAME: KARMA ROWLAND ADMIT DATE: 08/18 ACCOUNT NO: [id number] ROOM NO: [facility] [place] AGE: 56 REPORT TYPE: eTRANSESOPHAGEAL ECHO REPORT SEX: M ADMITTING PHYSICIAN:Wilbert Ramires MD ATTENDING PHYSICIAN:Wilbert Ramires MD *[place] [address] Transesophageal Echocardiogram Patient: Karma Rowland Study Date: 09/02/2022 BP: 138 / 65 Location: [facility] URN: [id number] : 1965 Age: 56 Height: 66 in / 167.6 cm Gender: M Weight: 153 .7 lb / 69.9 kg BMI/BSA: 24.9 kg/m 2 / 1.79 m 2 *Ordering Physician: * Rohit Benitez *Interpreting Physician: * Gianni Parham MD *Team Cdl Driver: * Sarah Lam Indications: Endocarditis Acute/subacute bacteri al. Study data: Consent: The risks, benefits, and al ternatives to the procedure were explained to the patient and info rmed consent was obtained. Procedure: Initial setup: The patient was brought to the laboratory in the fasting state.Intravenous acce ss was obtained. Surface ECG leads and pulse oximetric signals were monit ored. Sedation. Moderate sedation was administered by cardiology staff. T ransesophageal echocardiography was performed. Topical anesthes ia was obtained using benzocaine spray. A transesophageal probe (SN: [id number]) was inserted by the attending type copyist without difficulty. I mages were obtained using a [employer] cardiac ultrasound machine. Image krystin lity was adequate. The transesophageal probe was removed. Limited 2D, l imited spectral Doppler, and color Doppler. Location: [facility] jose status: Inpatient. Patient room number: [place] 11. Study st atus: Routine. Study completion: The patient tolerated the procedure well. There were no PATIENT NAME: KARMA ROWLAND [id number] complications. Findings Left ventricle: The cavity size is normal. Wall thickness is at the upper limits of normal. Systolic function is nor mal. The estimated ejection fraction is 55-59%. Right ventricle: The cavity size is normal. Syst olic function is normal. Left atrium: The atrium is mildly dilated. The a ppendage is of normal size. Emptying velocity is normal. There is no e vidence of a thrombus in the atrial cavity or appendage. No spontaneou s echo contrast is observed. Right atrium: The atrium is normal in size. Aorta: A single aortic arch is present. Brachioc ephalic branching is normal. The right innominate artery is the first aortic branch. The aorta is normal size, calcified, and non-disease d. Aortic valve: The valve is structurally normal. The valve is trileaflet. Cusp separation is normal. There is no evidence of a vegetation. There is no evidence of stenosis. Th ere is no regurgitation. Mitral valve: The valve is structurally normal. There is no evidence of a vegetation. There is no evidence o f stenosis. There is trivial regurgitation. Tricuspid valve: The valve is structurally felisa l. There is no evidence of a vegetation. There is trivial regur gitation. Pulmonic valve: Not well visualized. The valve i s structurally normal. There is no evidence of a vegetation. Th ere is no regurgitation. Pericardium: A trivial pericardial effusion is i dentified posterior to the heart. Pulmonary arteries: Main pulmonary artery: The artery is of normal s ize. Systemic veins: Inferior vena cava: The vessel is at the upper l imits of normal in size. Conclusions Summary: 1. Left ventricle: The cavity size is normal. Wa ll thickness is at the upper limits of normal. Systolic function is no rmal. The estimated ejection fraction is 55-59%. 2. Left atrium: The atrium is mildly dilated. Th ere is no evidence of a thrombus in the atrial cavity or appendage. No spontaneous echo contrast is observed. 3. Aortic valve: There is no evidence of a veget ation. 4. Mitral valve: There is no evidence of a veget ation. There is trivial regurgitation. 5. Tricuspid valve: There is no evidence of a ve getation. There is trivial regurgitation. 6. Pulmonic valve: There is no evidence of a veg etation. PATIENT NAME: KARMA ROWLAND [id number] 7. Pericardium, extracardiac: A trivial pericard ial effusion is identified posterior to the heart. Prepared and electronically signed by Gianni Parham MD 09/04/2022 08:56 at 0856 PATIENT NAME: KARMA ROWLAND [id number] 2022-09-04 07:49:00-00:00 [facility] REPORT#:[id number] REPORT STATUS: Signed DATE:09/04/22 TIME: 07 PATIENT: KAMRA ROWLAND UNIT #: [id number] ROOM/BED: [place] [address] : [birth year] AGE: 56 SEX: M ATTEND: Fredy Vences MD ADM AUTHOR: Liam Pedersen DPM * ALL edits or amendments must be made on the [employer] document * Subjective Chief complaint: left heel ulcer. left ankle pain Patient reports: no chest pa in, no cough, no dizziness, no fever, no heartburn, no itching Comments: dressing placed last night. excellent job. did well with PT yesterday Objective General VS: Last Documented: Result Date Time Pulse Ox 99 09/04 717 B/P 133/69 09/04 717 B/P Mean 90.3 09/04 717 O2 Delivery Room air 09/04 717 Temp 36.4 09/04 717 Pulse 80 09/04 717 Resp 18 09/04 717 PATIENT WEIGHT: Weight (lb): 165 Weight (oz): 5.55 Weight (kg): 75.000 Medications: Active Meds + DC'd Last 24 Hrs Zinc Oxide (ZINC OXIDE 30 GM OINTMENT) 1 APPLIC DAILY TOPICAL Insulin Glargine (Lantus/Semglee) 10 UNIT BEDTIM E SUBQ Sterile Water (WATER FOR IRRIGATION) DRESSING CH GELACIO ASDIR PRN IRR Insulin Human Lispro (HUMALOG) 0 AC HS SUBQ Dextrose/Water (DEXTROSE 10% IN WATER) 125 ML DIR PRN IV (CKD) Dextrose/Water (DEXTROSE 10% IN WATER) 250 ML DIR PRN IV (CKD) Glucagon (GLUCAGON) 1 MG ASDIR PRN IM Vancomycin HCl (VANCOMYCIN HCL) 1,000 MG Q24H IV Sodium Chloride (SODIUM CHLORIDE 0.9%) 250 ML Hydrocodone Bitart/Acetaminophen (NORCO 10/325) 1 TAB Q4H PRN PRN PO Hydromorphone HCl (DILAUDID) 1 MG Q6H PRN PRN IV Lidocaine (LIDODERM) 1 PATCH DAILY TOPICAL Insulin Human Lispro (HUMALOG) 5 UNIT AC SUBQ Miscellaneous Information (VANCOMYCIN PHARMACY T O DOSE) 1 EACH ASDIR IV (CKD) Heparin Sodium (HEPARIN 5000 UNITS/ML) 5,000 UNI T Q8HR SUBQ Cefepime HCl (MAXIPIME) 1 GM Q6H IV Sodium Chloride (SODIUM CHLORIDE) 10 ML Insulin Glargine (Lantus/Semglee) 15 UNIT BEDTIM E SUBQ (DC) Insulin Human Lispro (HUMALOG) 0 AC HS SUBQ (DC) Vancomycin HCl (VANCOMYCIN HCL) 1,000 MG DAILY 1 400 IV (DC) Sodium Chloride (SODIUM CHLORIDE 0.9%) 250 ML Hydromorphone HCl (DILAUDID) 1 MG Q3H PRN PRN I V (DC) Hydromorphone HCl (DILAUDID) 0.5 MG Q3H PRN PRN IV (DC) Acetaminophen (TYLENOL) 650 MG Q6H PRN PRN PO Bisacodyl (DULCOLAX) 10 MG DAILY PRN PRN RECTAL Dextrose/Water (DEXTROSE 10% IN WATER) 125 ML DIR PRN IV (CKD) Dextrose/Water (DEXTROSE 10% IN WATER) 250 ML DIR PRN IV (CKD) Docusate Sodium (COLACE) 100 MG Q12H PRN PRN PO Glucagon (GLUCAGON) 1 MG ASDIR PRN IM Hydralazine HCl (APRESOLINE) 10 MG Q6H PRN PRN I V Ondansetron HCl (ZOFRAN) 4 MG Q6H PRN PRN IV I O: 24 hour I O ending at 0700: 09/04 0700 09/03 1900 Intake Total 598 Output Total 400 Balance 198 Intake, Oral 598 Number 0 Incontinent Voids Number Voids 0 Output, Urine 400 Patient 75 kg Weight Weight Bed scale Measurement Method Dietitian nutrition assessment The data set between the solid lines has been im ported from the dietitian's assessment. BMI Calculated: 26.7 Nutrition related diagnosis: Nutrition diagnosis details: Nutrition problem: Altered nutrition labs Nutrition etiology: DM Nutrition signs and symptoms: HYPER/HYPOGLYCEMIA , A1C >14 Nutrition prescription: CONTINUE DM DIET Dietitian name: Klaus Kaiser, DIET Assessment completed: 09/03/22 Physical Exam General appearance: alert, awake, oriented Wound/incision: Location: left foot Site condition: dp/pt 2/4 left. light touch dec reased left foot. ulcer starting at posterior left heel. eccymosis noted . early likely stage 1. left ankle has edema. pain with aggressive ROM left a nkle. LE vascular pulse assess: 2+ L posterior tibialis, 2+ L dorsalis pedis Considered stroke alert: no Ulcer: Location: DTI dorsal left midfoot Results Findings/Data: Laboratory Tests: 09/04 09/04 09/03 09/03 09/03 0721 0540 1944 1836 1622 Chemistry POC Glucose (70 - 110 MG/DL) 87 124 H 135 H Hematology Hgb (12.5 - 16.9 g/dL) 6.8 L Hct (37.5 - 50.7 %) 21.2 L Toxicology Vancomycin Peak (30 - 40 MCG/ML) 27.4 L 09/03 09/03 09/03 1233 1143 1116 Chemistry POC Glucose (70 - 110 MG/DL) 136 H 50 L 44 L Diagnosis, Assessment Plan Free Text A P: DM with neuropathy early decub ulcer left heel OA/edema left ankle DTI dorsal left midfoot zinc oxide to foot and heel foam to heel on IV abx offloading boot oralia wraps to ankle Consultants: cardiology, endocrinology, hospital ist, infectious disease, podiatry Electronically Signed by Liam Pedersen DPM on 0 09/04/22 at 0750 [facility] #:[id number] END OF REPORT 2022-09-03 20:06:00-00:[address] [facility] ([facility]) Podiatry Consult Note REPORT#:[id number] REPORT STATUS: Signed DATE:09/03/22 TIME: 2005 PATIENT: KARMA ROWLAND UNIT #: [id number] ROOM/BED: [place] [address] : 61 AGE: 56 SEX: M ATTEND: Fredy Vences MD ADM AUTHOR: Liam Pedersen DPM * ALL edits or amendments must be made on the [employer]/computer document * History of Present Illness Chief complaint: left heel ulcer. left ankle pain HPI: thank you dr. Vences and team. 56 yo HAM with long h/o DM, and HTN who was admitted for fever, flulike symptoms and altered mental status on 08/18. He was doing well until about 3 days prior to admission when he noted blister to have formed o n the dorsum of his foot. His foot started progressively getting more swollen and the blisters started enlarging and extending to his lateral f oot and ankle. He started feeling weak and nauseated. He was noted to have altered mentation and was brought to our ER. He was noted to be in DKA with Blood sug ars greater than 600. I saw him in ICU and took him to OR for dibridemet and washout. Sharon kendall was treated in ICU for sepsis and DKA. He underwent incisional and excisional debridement of right foot and right ankle to right foot. Patient also foun d to have prostate abscess underwent transrectal ultrasound aspiration of a bscess and transurethral resection of prostate and unroofing of abscess b y urology Dr. Bass. Endocrinology treated the DKA and blood sugars m uch improved. Patient's right foot was not salvageable and patient und erwent right BKA by Dr. LEROY on 08/28. Patient blood cultures showe d MRSA. Patient continued on antibiotics as per ID. MRI of the pelvis and foot completed. Patient r equired multiple PRBCs for anemia. Patient was found to have a possible small hematoma of the left calf on ultrasound. H He is requiring IV Dilaudid for pain co ntrol. Mental status back to baseline. Pt is progressing slowly wit h therapy d/t weakness and pain, self care deficit, decreased endurance and anisha nce, and decreased functional mobility. Pt requiring acute inpt rehab for multidi sciplinary team of nursing, therapy, and physicians. at atime of admission no ulcer left heel. some pain left ankle. and swelling. now new ulcer left heel. 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 Denies: fever. Skin: abrasion, bruising, contusion. Cardiovascular: edema. Musculoskeletal: joint pain, joint swelling. Neuro: numbness. Denies: seizure. Psych: Denies: agitation, anxiety. All systems rev neg: except as marked Objective General VS: Last Documented: Result Date Time Pulse Ox 97 09/04 1919 B/P 154/79 09/04 1919 B/P Mean 103.6 09/04 1919 Temp 36.7 09/04 1919 Pulse 92 09/04 1919 Resp 16 09/04 1919 O2 Delivery Room air 09/03 0018 PATIENT WEIGHT: Weight (lb): 165 Weight (oz): 5.55 Weight (kg): 75.000 Medications: Active Meds + DC'd Last 24 Hrs Insulin Glargine (Lantus/Semglee) 10 UNIT BEDTIM E SUBQ Insulin Human Lispro (HUMALOG) 0 AC HS SUBQ Dextrose/Water (DEXTROSE 10% IN WATER) 125 ML DIR PRN IV (CKD) Dextrose/Water (DEXTROSE 10% IN WATER) 250 ML DIR PRN IV (CKD) Glucagon (GLUCAGON) 1 MG ASDIR PRN IM Vancomycin HCl (VANCOMYCIN HCL) 1,000 MG Q24H IV Sodium Chloride (SODIUM CHLORIDE 0.9%) 250 ML Hydrocodone Bitart/Acetaminophen (NORCO 10/325) 1 TAB Q4H PRN PRN PO Hydromorphone HCl (DILAUDID) 1 MG Q6H PRN PRN IV Lidocaine (LIDODERM) 1 PATCH DAILY TOPICAL Insulin Human Lispro (HUMALOG) 5 UNIT AC SUBQ Miscellaneous Information (VANCOMYCIN PHARMACY T O DOSE) 1 EACH ASDIR IV (CKD) Heparin Sodium (HEPARIN 5000 UNITS/ML) 5,000 UNI T Q8HR SUBQ (CKD) Cefepime HCl (MAXIPIME) 1 GM Q6H IV Sodium Chloride (SODIUM CHLORIDE) 10 ML Insulin Glargine (Lantus/Semglee) 15 UNIT BEDTIM E SUBQ (DC) Insulin Human Lispro (HUMALOG) 0 AC HS SUBQ (DC) Vancomycin HCl (VANCOMYCIN HCL) 1,000 MG DAILY 1 400 IV (DC) Sodium Chloride (SODIUM CHLORIDE 0.9%) 250 ML Hydromorphone HCl (DILAUDID) 1 MG Q3H PRN PRN I V (DC) Hydromorphone HCl (DILAUDID) 0.5 MG Q3H PRN PRN IV (DC) Acetaminophen (TYLENOL) 650 MG Q6H PRN PRN PO Bisacodyl (DULCOLAX) 10 MG DAILY PRN PRN RECTAL Dextrose/Water (DEXTROSE 10% IN WATER) 125 ML DIR PRN IV (CKD) Dextrose/Water (DEXTROSE 10% IN WATER) 250 ML DIR PRN IV (CKD) Docusate Sodium (COLACE) 100 MG Q12H PRN PRN PO Glucagon (GLUCAGON) 1 MG ASDIR PRN IM Hydralazine HCl (APRESOLINE) 10 MG Q6H PRN PRN I V Ondansetron HCl (ZOFRAN) 4 MG Q6H PRN PRN IV I O: 24 hour I O ending at 0700: 0412 0700 04 1900 Intake Total 240 Output Total 850 Balance -610 Intake, Oral 240 Number 0 Incontinent Voids Number Voids 1 Output, Urine 850 Dietitian nutrition assessment The data set between the solid lines has been im ported from the dietitian's assessment. BMI Calculated: 26.7 Nutrition related diagnosis: Nutrition diagnosis details: Nutrition problem: Altered nutrition labs Nutrition etiology: DM Nutrition signs and symptoms: HYPER/HYPOGLYCEMIA , A1C >14 Nutrition prescription: CONTINUE DM DIET Dietitian name: Klaus Kaiser, DIET Assessment completed: 09/03/22 Physical Exam General appearance: alert, awake, oriented, plea delia, no respiratory distress Wound/incision: Location: left foot Site condition: dp/pt 2/4 left. light touch dec reased left foot. ulcer starting at posterior left heel. eccymosis noted . early likely stage 1. left ankle has edema. pain with aggressive ROM left a nkle. LE vascular pulse assess: 2+ L posterior tibialis, 2+ L dorsalis pedis Feet - Bottom View (L) [Embedded Image Not Available] 1) Ulcer: Location: DTI dorsal left midfoot Results Findings/Data: Laboratory Tests: 09/03 09/03 09/03 09/03 09/03 1944 1622 1233 1143 1116 Chemistry POC Glucose (70 - 110 MG/DL) 124 H 135 H 136 H 50 L 44 L 09/03 09/03 0518 0415 Chemistry Sodium (134 - 147 mEq/L) 135 Potassium (3.4 - 5.0 mEq/L) 4.6 Chloride (100 - 108 mEq/L) 111 H Carbon Dioxide (21 - 33 mEq/l) 22 Anion Gap (0 - 20) 6 BUN (7 - 18 mg/dL) 22 H Creatinine (0.6 - 1.3 mg/dL) 1.1 Glomerular Filtr Rate (90 - 95) 77.8 L Glucose (70 - 110 mg/dL) 92 POC Glucose (70 - 110 MG/DL) 88 Calcium (8.0 - 10.5 mg/dL) 7.9 L Magnesium (1.80 - 2.40 mg/dL) 1.89 Total Bilirubin (0.0 - 1.0 mg/dL) 0.30 AST (15 - 37 IUnit/L) 15 ALT (30 - 65 IUnit/L) < 7 L Total Alk Phosphatase (20 - 125 IUnit/L) 93 Total Protein (6.4 - 8.2 g/dL) 6.7 Albumin (3.4 - 5.0 g/dL) 1.30 L Prealbumin (16.0 - 40.0 mg/dL) < 5.0 L Hematology WBC (4.5 - 11.0 x10 3/uL) 8.7 RBC (4.00 - 5.60 x10 6/uL) 2.92 L Hgb (12.5 - 16.9 g/dL) 8.0 L Hct (37.5 - 50.7 %) 25.5 L MCV (81.0 - 99.0 fL) 87.3 MCH (27.0 - 33.0 pg) 27.4 MCHC (33.0 - 37.0 g/dL) 31.4 L RDW (11.5 - 14.5 %) 13.9 Plt Count (150 - 400 x10 3/uL) 188 MPV (7.0 - 9.0 fL) 10.1 H Neut % (Auto) (56.0 - 77.0 %) 75.0 Lymph % (Auto) (14.0 - 32.0 %) 15.1 Boundary % (Auto) (4.8 - 9.0 %) 6.8 Eos % (Auto) (0.3 - 3.7 %) 2.3 Baso % (Auto) (0.0 - 2.0 %) 0.3 Neut # (Auto) (2.0 - 7.6 x10 3/uL) 6.51 Lymph # (Auto) (1.0 - 3.8 x10 3/uL) 1.31 Boundary # (Auto) (0.1 - 0.8 x10 3/uL) 0.59 Eos # (Auto) (0.0 - 0.2 x10 3/uL) 0.20 Baso # (Auto) (0.0 - 0.2 x10 3/uL) 0.03 Abs Immat Gran (auto) (0.00 - 0.03 x10 3/uL) 0. 04 H Add Manual Diff NO Immature Gran % (0.0 - 2.0 %) 0.5 Nucleated RBC % (0 - 0 %) 0.0 Nucleated RBCs # (Man) (0.0 - 0.1 x10 3/uL) 0.0 0 Diagnosis, Assessment Plan Free Text A P: DM with neuropathy early decub ulcer left heel OA/edema left ankle DTI dorsal left midfoot zinc oxide foam to heel on IV abx offloading boot oralia wraps to ankle discussed with primary team/PMR Consultants: cardiology, endocrinology, hospital ist, infectious disease, podiatry Electronically Signed by Liam Pedersen DPM on 0 09/03/22 at 2014 RPT #:[id number] END OF REPORT 2022-09-03 15:03:00-00:00 [id number] [place] [address] PATIENT NAME: KARMA ROWLAND ADMIT DATE: 09/02 ACCOUNT NO: [id number] ROOM NO: G.537 AGE: 56 REPORT TYPE: CONSULTATION REPORT SEX: M ADMITTING PHYSICIAN:Mj Vences MD ATTENDING PHYSICIAN:Mj Vences MD CONSULTATION DATE: 09/03/2022 ENDOCRINE CONSULTATION PATIENT OF: Dr. Vences. Thank you very much for referring this patient. HISTORY OF PRESENT ILLNESS: This is a 56-year-ol d gentleman who is very well known to me from his previous hospital admission. The patient was transferred from medical floor to the rehab. The patient has significant history of gangrene of the right foot. The patie nt underwent below-knee amputation. The patient also a known diabetic fo r last 10 years and is presently on the Humalog and Lantus combination. He also has history of prostate abscess. The patient also has history o f anemia. PHYSICAL EXAMINATION: GENERAL: Today, the patient is alert, awake, lit tle bit apprehensive, is thin built. VITAL SIGNS: His heart rate is around 70, blood pressure is 120/70 mmHg. HEENT: Essentially unremarkable. NECK: Thyroid is palpable. Clinically, he is bennett r euthyroid. CHEST: Bilateral vesicular breathing. He has mil d bronchospasm. CARDIAC: Both first and second heart carlos laberto nds. There is no third or fourth heart sound. Ejection sounds grade II/. EXTREMITIES: The patient has evidence of diabeti c sensory neuropathy in lower extremities and status post [id number] amput ation on the right side. The stump looks okay. The wound is healing. LABORATORY DATA: His blood sugars have been betw een 92 and 88 mg/dL. CLINICAL IMPRESSION: Diabete s mellitus type 2, uncontrolled with complications; status post sepsis, status post gangrene of the right foot, status post below-knee amputation, prostate abscess and anem ia. PLAN: The plan at this time is to increase p.o. intake, rehab, PT and OT and adjust insulin dose. Thanks for referring this patient. We wi ll be following this patient with you. Dictated By: Braxton Chapin MD Date Dictated: 09/03/2022 15:03:13 PATIENT NAME: KARMA ROWLAND [id number] Date Transcribed: 09/03/2022 15:14:17 /TONI Receipt ID: [id number] Authenticated by Logan Chapin MD On 08:07:20 PM Electronically Signed by Braxton Chapin MD on at 0807 PATIENT NAME: KARMA ROWLAND [id number] 3348-04-12 14:45:00-00:00 [facility] ([facility] Hospitalist Consultation REPORT#:[id number] REPORT STATUS: Signed DATE:09/03/22 TIME: 1445 PATIENT: KARMA ROWLAND UNIT #: [id number] ROOM/BED: [place] [address] : 61 AGE: 56 SEX: M ATTEND: Fredy Vences MD ADM AUTHOR: Tessie Junior * ALL edits or amendments must be made on the el [employer]/computer document * History of Present Illness Reason for consult: Medical Management Chief complaint: admitted to rehab PCP: PCP: No Primary or Family Physician HPI: Leon armstrong 56 yo male with long h/o DM, and HTN who was admitted for fever, flulike symptoms and altered mental status on . He was doing well until about 3 days prior to admission when he noted bl ister to have formed on the dorsum of his foot. His foot started progressively getting more swollen and the blisters started enlarging and extending to his lateral foot and ankle. He started feeling weak and nauseated. He w as noted to have altered mentation and was brought to our ER. He wa s noted to be in DKA with Blood sugars greater than 600. He was seen by podiatry and surgery for BLE wounds and infection. He was treated in ICU for sepsis and DKA. He underwent incisional and excisional debridement of right foot and right ankle by pod iatry. Patient also found to have prostate abscess underw ent transrectal ultrasound aspiration of abscess and transurethral resection of prostate and unroofin g of abscess by urology Dr. aBss. Endocrinology treated the DKA a nd blood sugars much improved. Patient 's right foot was not salvag eable and patient underwent right BKA by Dr. LEROY on 08/28. Patient blood cultures showed MRSA. Mira ent continued on antibiotics as per ID. MRI of the pelvis and foot completed. Patient required multiple PRBCs for anemia. Patient was found to have a po ssible small hematoma of the left calf on ultrasound. He complains of pain an d swelling of the left ankle. Patient hemodynamically stab le and plans are to be transferred to stepdown unit. He is on heparin subcu for VTE. After s urgery he is now being mobilized by PT and OT. He is wearing a [employer] orthoti c for right knee/BKA protection. Prior to admission the patient was independent living in a single-story house with his spouse with a few steps up to front and back doo r. 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 is at bedside. Patient denies nausea, vomiting, fever, chills, chest pain, shortness of breath with diz ziness. He is requiring IV Dilaudid for pain control. Mental status back to baseline History - Adult longitudinal Additional medical history: DM 2 since age 33 DM neuropathy HTN hyperlipidemia Additional surgical history: as above Additional family history: reviewed and non contributory Alcohol use: Denies EtOH use Drug use: Denies recreational drugs Smoking status for patients 13 years old or olde r: Never Smoker Other social history: Local resident, [place] l support Allergies: Coded Allergies: No Known Allergies (03/23/11) Review of Systems All systems rev neg: except as marked Objective VS/I O Last Documented: Result Date Time Pulse Ox 100 09/03 700 B/P 118/65 09/03 700 B/P Mean 82.6 09/03 700 Temp 97.3 09/03 700 Pulse 84 09/03 700 Resp 16 09/03 700 O2 Delivery Room air 09/03 0018 24 hour I O ending at 0700: 09/03 0700 09/02 1900 Intake Total 240 Output Total 850 Balance -610 Intake, Oral 240 Number 0 Incontinent Voids Number Voids 1 Output, Urine 850 General appearance: alert, awake Head/Eyes: atraumatic, clear cornea Neck: full range of motion, non-tender Cardiovascular: normal capillary refill, normal heart sounds, regular rate rhythm Respiratory: aerating well, clear to auscultatio n Abdomen: non-tender, normal bowel sounds Genitourinary: no flank pain Extremities: moves all, normal capillary refill Musculoskeletal: normal inspection, painless ran ge of motion 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 X 3, 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 Considered stroke alert: no Skin: dry, intact Psychiatry: normal affect, normal judgment/insig ht Diagnosis, Assessment Plan Consultants: cardiology, endocrinology, hospital ist, infectious disease, podiatry Free Text DxA P Notes Free Text DxA P Notes: ASSESSMENT: Gangrene of right foot s/p Below- knee amputatio n Prostate abscess MRSA bacteremia Hx of Diabetes, Diabetic neuropathy PLANS: Continue with ABx as dierected- currently on Dap tomycin and Cefepime Continue with PT/OT per primary Fall precautions Nutritional support pain control Tight glycemia control- endocrine on board, insu jahaira adjustments Wound care as directed Hepain PPX Continue with supportive / care at [id number] RPT #:[id number] END OF REPORT 2022-09-03 14:27:00-00:[address] [facility] ([facility]) Infectious Dis. Progress Note REPORT#:[id number] REPORT STATUS: Signed DATE:09/03/22 TIME: 1427 PATIENT: KARMA ROWLAND UNIT #: [id number] ROOM/BED: [place] [id number] : 63 AGE: 56 SEX: M ATTEND: Fredy Vences MD ADM AUTHOR: Merry Wolff MD * ALL edits or amendments must be made on the [employer]/computer document * Subjective HPI: PT is a 56yr old male with h istory of diabetes mellitus type 2, hypertension who was admitted with altered mental status and righ t-sided foot infection. According to him, he noticed a blister on his right foot around 3 days prior to presentation. His foot got progressively more sw ollen and erythema extended proximally to his lateral foot and ankle. CT abd omen and pelvis with contrast is concerning for possible prostate abscess. CT of lower extremity without contrast shows extensive sof t tissue edema with mottled gas in the subcutaneous and intramuscular compartments of the foot, comp atible with gas-forming infection. Patient's blood cultures have come ba ck positive for MRSA in 2 out of 2 sets. PT has had persistent (+)Ve cx for MR FRETIAS 08/18- 08/22. He underwent a debridement of his foot on 08/19 and cx g rew MRSA. PT was started on Vancomycin and clindamycin on 08/18. His MRI showed a prosta te abscess. 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 Pt underwent a transrectal aspiration and unroofing of prostate abscess 08/26 and cx grew Citrobacter, Enterococcus, MRSA. 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 JIMENA done 09/02. Pt was tr ansferred to Rehab on 09/02. 09/03 Pt is doing well, blood sugars are on the l ow side today Patient reports: No: cough, diarrhea, fever, headache, nausea, sh ortness of breath, vomiting. Portions of this section wer e scribed by Jill Quintero on 09/03/22 at 1501 Objective General VS/I O: Vital Signs Date Temp Pulse Resp B/P B/P Mean Pulse Ox FiO2 /-09/03 97.3-99.1 81-87 16-17 116-164/50-85 72.3-111.0 94-100 Last Documented: Result Date Time Pulse Ox 100 09/03 0701 B/P 118/65 09/03 0701 B/P Mean 82.6 09/03 0701 Temp 97.3 09/03 0701 Pulse 84 09/03 0701 Resp 16 09/03 0701 O2 Delivery Room air 09/03 0018 Vital Signs: Date Time Temp Pulse Resp B/P B/P Pulse O2 O2 Flow FiO2 Mean Ox Delivery Rate 09/03 0701 97.3 84 16 118/65 82.6 100 09/03 0018 97.3 81 16 157/75 102.4 98 Room air 09/02 1931 99.1 87 16 116/50 72.3 94 09/02 1910 97.9 86 16 164/85 111.0 96 Room air 09/02 1653 97.9 82 17 127/63 84.5 96 Room air 09/02 1510 98.4 85 17 130/70 89.7 97 Room air 24 hour I O ending at 0700: 09/03 0700 09/02 1900 Intake Total 240 Output Total 850 Balance -610 Intake, Oral 240 Number 0 Incontinent Voids Number Voids 1 Output, Urine 850 PATIENT WEIGHT: Weight (lb): Weight (oz): Weight (kg): Antibiotic start date: Antibiotic: daptomycin Start Date:08/28- Antibiotic: cefepime Start Date:09/01- Antibiotic: merrem Start Date:08/27-09/01 Physical Exam General appearance: alert, awake, oriented Head/Eyes: atraumatic, clear cornea, EOMI, felisa l conjunctiva/sclera, normal eyelids/periorb, normocephalic, PERRL ENT: moist mucosal membranes, normal dentition Neck: full range of motion Cardiovascular: normal heart sounds, regular rat e rhythm Respiratory: clear to auscultation, aerating wel l Abdomen: non-tender, normal bowel sounds, soft Extremities: moves all, right BKA Left foot woun d +dressing in place 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 X 3 Skin: dry, intact Results Findings/Data: Laboratory Tests 09/03 09/03 09/03 09/03 09/03 1233 1143 1116 0518 0415 Chemistry Sodium (134 - 147 mEq/L) 135 Potassium (3.4 - 5.0 mEq/L) 4.6 Chloride (100 - 108 mEq/L) 111 H Carbon Dioxide (21 - 33 mEq/l) 22 Anion Gap (0 - 20) 6 BUN (7 - 18 mg/dL) 22 H Creatinine (0.6 - 1.3 mg/dL) 1.1 Glomerular Filtr Rate (90 - 95) 77.8 L Glucose (70 - 110 mg/dL) 92 POC Glucose (70 - 110 MG/DL) 136 H 50 L 44 L 88 Calcium (8.0 - 10.5 mg/dL) 7.9 L Magnesium (1.80 - 2.40 mg/dL) 1.89 Total Bilirubin (0.0 - 1.0 mg/dL) 0.30 AST (15 - 37 IUnit/L) 15 ALT (30 - 65 IUnit/L) < 7 L Total Alk Phosphatase (20 - 125 IUnit/L) 93 Total Protein (6.4 - 8.2 g/dL) 6.7 Albumin (3.4 - 5.0 g/dL) 1.30 L Prealbumin (16.0 - 40.0 mg/dL) < 5.0 L 09/02 1908 1732 1513 Chemistry POC Glucose (70 - 110 MG/DL) 210 H 159 H 102 25 7 H Laboratory Tests 09/03 0415 Hematology WBC (4.5 - 11.0 x10 3/uL) 8.7 RBC (4.00 - 5.60 x10 6/uL) 2.92 L Hgb (12.5 - 16.9 g/dL) 8.0 L Hct (37.5 - 50.7 %) 25.5 L MCV (81.0 - 99.0 fL) 87.3 MCH (27.0 - 33.0 pg) 27.4 MCHC (33.0 - 37.0 g/dL) 31.4 L RDW (11.5 - 14.5 %) 13.9 Plt Count (150 - 400 x10 3/uL) 188 MPV (7.0 - 9.0 fL) 10.1 H Neut % (Auto) (56.0 - 77.0 %) 75.0 Lymph % (Auto) (14.0 - 32.0 %) 15.1 Boundary % (Auto) (4.8 - 9.0 %) 6.8 Eos % (Auto) (0.3 - 3.7 %) 2.3 Baso % (Auto) (0.0 - 2.0 %) 0.3 Neut # (Auto) (2.0 - 7.6 x10 3/uL) 6.51 Lymph # (Auto) (1.0 - 3.8 x10 3/uL) 1.31 Boundary # (Auto) (0.1 - 0.8 x10 3/uL) 0.59 Eos # (Auto) (0.0 - 0.2 x10 3/uL) 0.20 Baso # (Auto) (0.0 - 0.2 x10 3/uL) 0.03 Abs Immat Gran (auto) (0.00 - 0.03 x10 3/uL) 0 .04 H Add Manual Diff NO Immature Gran % (0.0 - 2.0 %) 0.5 Nucleated RBC % (0 - 0 %) 0.0 Nucleated RBCs # (Man) (0.0 - 0.1 x10 3/uL) 0.0 0 Microbiology Date/Time Procedure - Status Source Growth 09/03 414 MRSA DNA Surveillance Screen - COMP NASAL Laboratory Tests: 09/03 09/03 09/03 09/03 09/03 1233 1143 1116 0518 0415 Chemistry Sodium (134 - 147 mEq/L) 135 Potassium (3.4 - 5.0 mEq/L) 4.6 Chloride (100 - 108 mEq/L) 111 H Carbon Dioxide (21 - 33 mEq/l) 22 Anion Gap (0 - 20) 6 BUN (7 - 18 mg/dL) 22 H Creatinine (0.6 - 1.3 mg/dL) 1.1 Glomerular Filtr Rate (90 - 95) 77.8 L Glucose (70 - 110 mg/dL) 92 POC Glucose (70 - 110 MG/DL) 136 H 50 L 44 L 88 Calcium (8.0 - 10.5 mg/dL) 7.9 L Magnesium (1.80 - 2.40 mg/dL) 1.89 Total Bilirubin (0.0 - 1.0 mg/dL) 0.30 AST (15 - 37 IUnit/L) 15 ALT (30 - 65 IUnit/L) < 7 L Total Alk Phosphatase (20 - 125 IUnit/L) 93 Total Protein (6.4 - 8.2 g/dL) 6.7 Albumin (3.4 - 5.0 g/dL) 1.30 L Prealbumin (16.0 - 40.0 mg/dL) < 5.0 L Hematology WBC (4.5 - 11.0 x10 3/uL) 8.7 RBC (4.00 - 5.60 x10 6/uL) 2.92 L Hgb (12.5 - 16.9 g/dL) 8.0 L Hct (37.5 - 50.7 %) 25.5 L MCV (81.0 - 99.0 fL) 87.3 MCH (27.0 - 33.0 pg) 27.4 MCHC (33.0 - 37.0 g/dL) 31.4 L RDW (11.5 - 14.5 %) 13.9 Plt Count (150 - 400 x10 3/uL) 188 MPV (7.0 - 9.0 fL) 10.1 H Neut % (Auto) (56.0 - 77.0 %) 75.0 Lymph % (Auto) (14.0 - 32.0 %) 15.1 Boundary % (Auto) (4.8 - 9.0 %) 6.8 Eos % (Auto) (0.3 - 3.7 %) 2.3 Baso % (Auto) (0.0 - 2.0 %) 0.3 Neut # (Auto) (2.0 - 7.6 x10 3/uL) 6.51 Lymph # (Auto) (1.0 - 3.8 x10 3/uL) 1.31 Boundary # (Auto) (0.1 - 0.8 x10 3/uL) 0.59 Eos # (Auto) (0.0 - 0.2 x10 3/uL) 0.20 Baso # (Auto) (0.0 - 0.2 x10 3/uL) 0.03 Abs Immat Gran (auto) (0.00 - 0.03 0.04 H x10 3/uL) Add Manual Diff NO Immature Gran % (0.0 - 2.0 %) 0.5 Nucleated RBC % (0 - 0 %) 0.0 Nucleated RBCs # (Man) (0.0 - 0.1 0.00 x10 3/uL) 09/02 1908 1732 1513 Chemistry POC Glucose (70 - 110 MG/DL) 210 H 159 H 102 25 7 H Microbiology: Date/Time Procedure - Status Source Growth 09/03 0415 MRSA DNA Surveillance Screen - COMP NASAL Medication(s) Ordered: Anti-Infective Agents Sig/Jan Start time Last Medication Dose Route Stop Time Status Admin Vancomycin HCl 1,000 MG Q24H 09/03 1500 CKD Sodium Chloride 250 ML IV 09/24 2359 Miscellaneous 1 EACH ASDIR 09/03 0130 CKD Information IV 10/03 0129 Cefepime HCl 1 GM Q6H 09/02 2100 AC 09/03 Sodium Chloride 10 ML IV 09/13 2059 0809 Vancomycin HCl 1,000 MG DAILY 1400 09/02 1400 D C Sodium Chloride 250 ML IV 09/08 1459 Blood Formation,Coagulation Sig/Jan Start time Last Medication Dose Route Stop Time Status Admin Heparin Sodium 5,000 UNIT Q8HR 09/02 2200 CKD 0 09/03 SUBQ 10/02 2159 0458 Cardiovascular Drugs Sig/Jan Start time Last Medication Dose Route Stop Time Status Admin Hydralazine HCl 10 MG Q6H PRN PRN 09/01 1330 AC IV 10/01 1329 Central Nervous System Agents Sig/Jan Start time Last Medication Dose Route Stop Time Status Admin Hydrocodone Bitart/ 1 TAB Q4H PRN PRN 09/03 140 0 AC Acetaminophen PO 10/18 1300 Hydromorphone HCl 1 MG Q6H PRN PRN 09/03 1400 A C IV 10/18 1300 Hydromorphone HCl 1 MG Q3H PRN PRN 09/01 1415 D C 09/03 IV 09/06 1414 1019 Hydromorphone HCl 0.5 MG Q3H PRN PRN 09/01 1415 DC IV 09/06 1414 Acetaminophen 650 MG Q6H PRN PRN 09/01 1330 AC PO 10/01 1329 Electrolytic, Caloric, And Daniel Sig/Jan Start time Last Medication Dose Route Stop Time Status Admin Dextrose/Water 125 ML ASDIR PRN 09/01 1330 CKD 09/03 IV 10/01 1329 1148 Dextrose/Water 250 ML ASDIR PRN 09/01 1330 CKD IV 10/01 1329 Gastrointestinal Drugs Sig/Jan Start time Last Medication Dose Route Stop Time Status Admin Bisacodyl 10 MG DAILY PRN PRN 09/01 1330 AC RECTAL 10/01 1329 Docusate Sodium 100 MG Q12H PRN PRN 09/01 1330 AC PO 10/01 1329 Ondansetron HCl 4 MG Q6H PRN PRN 09/01 1330 AC IV 10/01 1329 Hormones And Synthetic Substit Sig/Jan Start time Last Medication Dose Route Stop Time Status Admin Insulin Human Lispro 5 UNIT AC 09/03 0730 CKD 0 09/03 SUBQ 10/03 0729 0747 Insulin Glargine 15 UNIT BEDTIME 09/02 2100 CKD 09/02 SUBQ 10/02 2059 2120 Insulin Human Lispro 0 AC HS 09/02 2100 AC SUBQ 10/02 205 Glucagon 1 MG ASDIR PRN 09/01 1330 AC IM 10/01 1329 Local Anesthetics (Parenteral) Sig/Jan Start time Last Medication Dose Route Stop Time Status Admin Lidocaine 1 PATCH DAILY 09/03 0900 AC 09/03 TOPICAL 10/03 0859 0810 Microbiology: 09/03 0415 NASAL: MRSA DNA Surveillance Screen - COMP Portions of this section wer e scribed by Jill Quintero on 09/03/22 at 1508 Diagnosis, Assessment Plan Free Text A P: *MRSA bacteremia -Initial blood cultures from 08/18/2022 positive for MRSA in 2 out of 2 sets. -Repeat blood cultures 08/21/2022 are already po sitive for MRSA in 2 out of 2 sets, suggesting persistent high-grade bacteremi a. -TTE 08/18/2022 negative for any obvious vegetat ions. -08/28 neg -JIMENA 09/02 pending results *Prostatic abscess -s/p transrectal aspiration and unroofing on 08/26 -cx MRSA, citrobacter (r-cefazolin) Enterococcus raffinosus (S-amp,pcn, vancomycin), bacteriodes *ERIKA *Hyponatremia *Diabetic neuropathy *Diabetes mellitus type 2 *Hypertension 09/03 Follow JIMENA results; may need 6 weeks of daptomyc in if (+)VE -cont on Cefepime and Daptomycin til 5/ for kellen atment of Prostate abscess -follow esr and crp Consultants: cardiology, endocrinology, hospital ist, infectious disease, podiatry Portions of this section wer e scribed by Jill Quintero on 09/03/22 at 1501 at 2013 RPT #:[id number] END OF REPORT 2022-09-03 11:38:00-00:[address] [facility] ([facility] Pharmacy Prog.Note-Vancomycin REPORT#:[id number] REPORT STATUS: Signed DATE:09/03/22 TIME: 1138 PATIENT: KARMA ROWLAND UNIT #: [id number] ROOM/BED: [place] [id number] : 63 AGE: 56 SEX: M ATTEND: Fredy Vences MD ADM AUTHOR: Wilian Jasso h * ALL edits or amendments must be made on the [employer] document * Vancomycin Vancomycin Medication Therapy Goal: AUC 400-600 mg*hr/L Indication for treatment: OM and MRSA Bacteremia Current therapy: vanc 1 g IV Q24H VS and I/O: Vital Signs Date Temp Pulse Resp B/P B/P Mean Pulse Ox FiO2 09/02-09/03 97.3-99.1 81-87 16-17 116-164/50-85 72.3-111.0 94-100 72 hours ending at 0700 09/03 1900 08/31 07 1900 Intake 240 Total Output 850 Total Balance -610 Intake, 240 Oral Number 0 Incontinen t Voids Number 1 Voids Output, 850 Urine 72 Hour I O Total 09/03 07 Intake Total 240 Output Total 850 Balance -610 Labs: Laboratory Test : 09/03 414 Chemistry BUN (7 - 18 mg/dL) 22 H Creatinine (0.6 - 1.3 mg/dL) 1.1 Hematology WBC (4.5 - 11.0 x10 3/uL) 8.7 Microbiology: 09/03 414 NASAL: MRSA DNA Surveillance Screen - RECD Treatment plan: consult, cont current regimen/do se Regimen: PT is a 56yr old male with history of diabetes mellitus type 2, hypertension who was admitted with altered mental status and right-sided foot infection. According to him, he noticed a blister on his right foot around 3 days prior to presentation on 08/18. His foot got progressivel y more swollen and erythema extended proximally to his lateral foot and ankl e. CT abdomen and pelvis with contrast is concerning for possible prostate abs cess. CT of lower extremity without contrast shows extensive soft tissue rose ma with mottled gas in the subcutaneous and intramuscular compartments of t he foot, compatible with gas- forming infection. Patient's blood cultures have come back positive for MRSA in 2 out of 2 sets. PT has had persistent (+)Ve cx for MRSA 08/18- 08/22. He underwent a debridement of h is foot on 08/19 and cx grew MRSA. PT was started on Vancomycin and clindamycin on 08/18. His MRI show ed a prostate abscess. 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 Patient is s/p ICU stay with merrem/ daptomycin. ID adjusting regimen to cefe pime/vancomycin. Pharmacy consulted to dose vancomycin. Consulting provider: Dr. Wolff Indication: MRSA Bacteremia Goal: AUC 400-600 mcg*hr/ml A/P 09/03: * Pt transferred from [facility] to [facility]. D/w RN to enter weight. Weight 70 kg. * Afebrile, WBC 8.7 * BUN 22, SCr 1.1, eCrCl 66 ml/min, UOP 1650 ml/ 24hrs * Micro: 08/26 prostate abscess: C farmeri , MRSA, E raffinosus. 08/18, 08/19, 08/21 , 08/22, 08/25 blood MRSRA. 08/28 blood - NGTD. * Imagin/30 MRI - OM of talus, caeia neus and navicular bone; follow up JIMENA result * Regimen: End date 09/24 per ID. Pt was on vanc to 08/24. Regimen then adjusted to daptomycin and teflaro on 08/25. Pt re started on vanc 09/01 with vancomycin 1 g IV q24h. * Monitoring: Renal function stable. Shruthi n for AUC monitoring with peak on 09/03 1700 and trough on 09/04 at 1430. AUC Goal 400-60 0 mcg*hr/ml. * Pharmacy will monitor and adjust dose as alexander rodrigez Thanks for the consult. at 1159 RPT #:[id number] END OF REPORT 2022-09-03 11:21:00-00:00 [facility] ([facility]) Cardiology Progress Note REPORT#:[id number] REPORT STATUS: Signed DATE:09/03/22 TIME: 1121 PATIENT: KARMA ROWLAND UNIT #: [id number] ROOM/BED: [place] [address] : 63 AGE: 56 SEX: M ATTEND: Fredy Vences MD ADM AUTHOR: Rohit Benitez CLAY MILLER * ALL edits or amendments must be made on the [employer]/computer document * Rohit Benitez 09/03/22 1121: Subjective Chief complaint: weakness Free Text Subj Notes Free Text Subj Notes: Patient seen and evaluated. Transferred to rehab . Chart reviewed. No new symptoms, feeling well. Terence es chest pain, palpitations, or shortness of breath. Objective General VS/I O: 24 hour I O ending at 0700: 09/03 0700 09/02 1900 Intake Total 240 Output Total 850 Balance -610 Intake, Oral 240 Number 0 Incontinent Voids Number Voids 1 Output, Urine 850 Vital Signs: Date Time Temp Pulse Resp B/P B/P Pulse O2 O2 Flow FiO2 Mean Ox Delivery Rate 09/03 0701 97.3 84 16 118/65 82.6 100 09/03 0018 97.3 81 16 157/75 102.4 98 Room air 09/02 1931 99.1 87 16 116/50 72.3 94 09/02 1910 97.9 86 16 164/85 111.0 96 Room air 09/02 1653 97.9 82 17 127/63 84.5 96 Room air 09/02 1510 98.4 85 17 130/70 89.7 97 Room air PATIENT WEIGHT: Weight (lb): Weight (oz): Weight (kg): Medications: Active Meds + DC'd Last 24 Hrs Lidocaine (LIDODERM) 1 PATCH DAILY TOPICAL Insulin Human Lispro (HUMALOG) 5 UNIT AC SUBQ (C KD) Miscellaneous Information (VANCOMYCIN PHARMACY T O DOSE) 1 EACH ASDIR IV (CKD) Heparin Sodium (HEPARIN 5000 UNITS/ML) 5,000 UNI T Q8HR SUBQ (CKD) Cefepime HCl (MAXIPIME) 1 GM Q6H IV Sodium Chloride (SODIUM CHLORIDE) 10 ML Insulin Glargine (Lantus/Semglee) 15 UNIT BEDTIM E SUBQ (CKD) Insulin Human Lispro (HUMALOG) 0 AC HS SUBQ Vancomycin HCl (VANCOMYCIN HCL) 1,000 MG DAILY 1 400 IV (CKD) Sodium Chloride (SODIUM CHLORIDE 0.9%) 250 ML Hydromorphone HCl (DILAUDID) 1 MG Q3H PRN PRN IV Hydromorphone HCl (DILAUDID) 0.5 MG Q3H PRN PRN IV Acetaminophen (TYLENOL) 650 MG Q6H PRN PRN PO Bisacodyl (DULCOLAX) 10 MG DAILY PRN PRN RECTAL Dextrose/Water (DEXTROSE 10% IN WATER) 125 ML DIR PRN IV (CKD) Dextrose/Water (DEXTROSE 10% IN WATER) 250 ML DIR PRN IV (CKD) Docusate Sodium (COLACE) 100 MG Q12H PRN PRN PO Glucagon (GLUCAGON) 1 MG ASDIR PRN IM Hydralazine HCl (APRESOLINE) 10 MG Q6H PRN PRN I V Ondansetron HCl (ZOFRAN) 4 MG Q6H PRN PRN IV Physical Exam General appearance: alert, awake, oriented Neck: no bruit/NL carotids, no JVD Cardiovascular: CV assessment: regular rate and rhythm, no ecto py, no gallop Respiratory: clear to auscultation, no distress Abdomen: soft, non-tender Lower extremity: LE assessment: normal temperature, no edema 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 X 3 Wound/incision: Location: right bka Psychiatry: normal affect, normal judgment/insig ht, normal mood Results Findings/Data: Laboratory Tests 09/03 09/03 09/02 09/02 09/02 0518 0415 1929 1908 1732 Chemistry Sodium (134 - 147 mEq/L) 135 Potassium (3.4 - 5.0 mEq/L) 4.6 Chloride (100 - 108 mEq/L) 111 H Carbon Dioxide (21 - 33 mEq/l) 22 Anion Gap (0 - 20) 6 BUN (7 - 18 mg/dL) 22 H Creatinine (0.6 - 1.3 mg/dL) 1.1 Glomerular Filtr Rate (90 - 95) 77.8 L Glucose (70 - 110 mg/dL) 92 POC Glucose (70 - 110 MG/DL) 88 210 H 159 H 10 2 Calcium (8.0 - 10.5 mg/dL) 7.9 L Magnesium (1.80 - 2.40 mg/dL) 1.89 Total Bilirubin (0.0 - 1.0 mg/dL) 0.30 AST (15 - 37 IUnit/L) 15 ALT (30 - 65 IUnit/L) < 7 L Total Alk Phosphatase (20 - 125 IUnit/L) 93 Total Protein (6.4 - 8.2 g/dL) 6.7 Albumin (3.4 - 5.0 g/dL) 1.30 L Prealbumin (16.0 - 40.0 mg/dL) < 5.0 L 09/02 1513 Chemistry POC Glucose (70 - 110 MG/DL) 257 H Laboratory Tests 09/03 0415 Hematology WBC (4.5 - 11.0 x10 3/uL) 8.7 RBC (4.00 - 5.60 x10 6/uL) 2.92 L Hgb (12.5 - 16.9 g/dL) 8.0 L Hct (37.5 - 50.7 %) 25.5 L MCV (81.0 - 99.0 fL) 87.3 MCH (27.0 - 33.0 pg) 27.4 MCHC (33.0 - 37.0 g/dL) 31.4 L RDW (11.5 - 14.5 %) 13.9 Plt Count (150 - 400 x10 3/uL) 188 MPV (7.0 - 9.0 fL) 10.1 H Neut % (Auto) (56.0 - 77.0 %) 75.0 Lymph % (Auto) (14.0 - 32.0 %) 15.1 Boundary % (Auto) (4.8 - 9.0 %) 6.8 Eos % (Auto) (0.3 - 3.7 %) 2.3 Baso % (Auto) (0.0 - 2.0 %) 0.3 Neut # (Auto) (2.0 - 7.6 x10 3/uL) 6.51 Lymph # (Auto) (1.0 - 3.8 x10 3/uL) 1.31 Boundary # (Auto) (0.1 - 0.8 x10 3/uL) 0.59 Eos # (Auto) (0.0 - 0.2 x10 3/uL) 0.20 Baso # (Auto) (0.0 - 0.2 x10 3/uL) 0.03 Abs Immat Gran (auto) (0.00 - 0.03 x10 3/uL) 0. 04 H Add Manual Diff NO Immature Gran % (0.0 - 2.0 %) 0.5 Nucleated RBC % (0 - 0 %) 0.0 Nucleated RBCs # (Man) (0.0 - 0.1 x10 3/uL) 0.0 0 Laboratory Tests 09/03 0415 Chemistry Magnesium (1.80 - 2.40 mg/dL) 1.89 Diagnosis, Assessment Plan Consultants: cardiology, endocrinology, hospital ist, infectious disease, podiatry Free Text DxA P Notes Free Text DxA P Notes: Impression: 1. Debility 2. Infected right foot status post BKA 3. Bacteremia 4. Diabetes 5. Hypertension 6. Anemia Recommendation: Patient initially presented with DKA and sepsis. Diagnosed with right foot infection, underwent I D, now status post BKA. P atient had persistent bacteremia with MRSA, underwent JIMENA with negativ e findings of endocarditis. Patient now transferred to [facility] for physical therapy. Known cardiac history of hypertension and hyperlipide renetta. Vital signs stable. Echocardiogram with normal LVEF, grade 1 diastolic dysfunction, mildly dila carlos [place], and no significant valvular abnormalities. Continue to monitor bloo d pressure trend. Continue wound care and IV antibiotic therapy. Continue P T/OT. Supportive care. Plan of care discussed with patient, RN and Dr. Parham. Gianni Parham 09/06/22 1632: Diagnosis, Assessment Plan Additional comments: Patient was seen and examined at bedside , agree with above assessment and plan as documented by nurse practitioner. Will follow . Electronically Signed by Rohit Benitez NP on 0 09/03/22 at 2019 at 1637 RPT #:[id number] END OF REPORT 2022-09-03 11:21:00-00:[address] [facility] ([facility]) Pain Management Consult Note REPORT#:[id number] REPORT STATUS: Signed DATE:09/03/22 TIME: 112 PATIENT: KARMA ROWLAND UNIT #: [id number] ROOM/BED: [place] [id number] : 63 AGE: 56 SEX: M ATTEND: Fredy Vences MD ADM AUTHOR: Ben Klein PA * ALL edits or amendments must be made on the [employer]/computer document * Ben Klein 09/03/22 1121: History of Present Illness Primary Care Physician: Attending: Mj Vences MD HPI: Patient is a 56-year-old male who was initially admitted in for AMS from DKA, and right foot infection. Review of Systems Additional notes: 14 point ROS undertaken unremarkable except as n oted in HPI, past medical and surgical history History Past History Medications: Home Medications: Medication Dose/Rte/Freq Days Qty Entered Last Max Daily Dose Reviewed HEPARIN SODIUM,PORCINE 5,000 UNIT SUBQ 14 42 0 09/01/22 (HEPARIN SOD 1ML) Q8HR 1008 Strength: 5,000 UNIT/ML VIAL hydrALAZINE (APRESOLINE) 10 MG IV 10 09/01/22 Strength: 20 MG/ML AMPUL Q6H PRN PRN SBP 1009 GREATER THAN 160 DOCUSATE SODIUM 100 MG PO 14 09/01/22 (COLACE) Q12H PRN PRN 1009 Strength: 100 MG CAP CONSTIPATION BISACODYL (DULCOLAX) 10 MG RECTAL 14 09/01/22 Strength: 10 MG SUPP.RECT DAILY PRN PRN 1009 CONSTIPATION, SECOND LINE ONDANSETRON 4 MG IV 14 09/01/22 Strength: 4 MG/2 ML VIAL Q6H PRN PRN N/V IF 1009 NOT ON PO DIET INSULIN GLARGINE 15 UNIT SUBQ 14 09/01/22 (LANTUS) BEDTIME 1009 Strength: 100 UNIT/ML VIAL INSULIN LISPRO (HumaLOG) 0 UNIT SUBQ AC HS 14 09/01/22 Strength: 100 UNIT/ML VIAL 1010 INSULIN LISPRO (HumaLOG) 5 UNIT SUBQ AC 14 08/23 Strength: 100 UNIT/ML VIAL 1010 VANCOMYCIN (VANCOCIN) 1 GM IV Q12H 7 09/02/22 Strength: 1 GRAM VIAL 1405 CEFEPIME (MAXIPIME) 1 GM IV Q6HR 28 09/02/22 Strength: 1 GRAM VIAL 1405 Current Hospital Medications: Anti-Infective Agents Sig/Jan Start time Last Medication Dose Route Stop Time Status Admin Miscellaneous 1 EACH ASDIR 09/03 0130 CKD Information IV 10/03 0129 (VANCOMYCIN PHARMACY TO DOSE) Cefepime HCl 1 GM Q6H 09/02 2100 AC 09/03 (MAXIPIME) IV 09/13 2059 0809 Sodium Chloride 10 ML (SODIUM CHLORIDE) Vancomycin HCl 1,000 MG DAILY 1400 09/02 1400 C KD (VANCOMYCIN HCL) IV 09/08 1459 Sodium Chloride 250 ML (SODIUM CHLORIDE 0.9%) Blood Formation,Coagulation Sig/Jan Start time Last Medication Dose Route Stop Time Status Admin Heparin Sodium 5,000 UNIT Q8HR 09/02 2200 CKD 0 09/03 (HEPARIN 5000 UNITS/ SUBQ 10/02 2159 0458 ML) Cardiovascular Drugs Sig/Jan Start time Last Medication Dose Route Stop Time Status Admin Hydralazine HCl 10 MG Q6H PRN PRN 09/01 1330 AC (APRESOLINE) IV 10/01 1329 Central Nervous System Agents Sig/Ajn Start time Last Medication Dose Route Stop Time Status Admin Hydromorphone HCl 1 MG Q3H PRN PRN 09/01 1415 A C 09/03 (DILAUDID) IV 09/06 1414 1019 Hydromorphone HCl 0.5 MG Q3H PRN PRN 09/01 1415 AC (DILAUDID) IV 09/06 1414 Acetaminophen 650 MG Q6H PRN PRN 09/01 1330 AC (TYLENOL) PO 10/01 1329 Electrolytic, Caloric, And Daniel Sig/Jan Start time Last Medication Dose Route Stop Time Status Admin Dextrose/Water 125 ML ASDIR PRN 09/01 1330 CKD (DEXTROSE 10% IN IV 10/01 1329 WATER) Dextrose/Water 250 ML ASDIR PRN 09/01 1330 CKD (DEXTROSE 10% IN IV 10/01 1329 WATER) Gastrointestinal Drugs Sig/Jan Start time Last Medication Dose Route Stop Time Status Admin Bisacodyl 10 MG DAILY PRN PRN 09/01 1330 AC (DULCOLAX) RECTAL 10/01 1329 Docusate Sodium 100 MG Q12H PRN PRN 09/01 1330 AC (COLACE) PO 10/01 1329 Ondansetron HCl 4 MG Q6H PRN PRN 09/01 1330 AC (ZOFRAN) IV 10/01 1329 Hormones And Synthetic Substit Sig/Jan Start time Last Medication Dose Route Stop Time Status Admin Insulin Human Lispro 5 UNIT AC 09/03 0730 CKD 0 09/03 (HUMALOG) SUBQ 10/03 0729 0747 Insulin Glargine 15 UNIT BEDTIME 09/02 2100 CKD 09/02 (Lantus/Semglee) SUBQ 10/02 205 2120 Insulin Human Lispro 0 AC HS 09/02 2100 AC (HUMALOG) SUBQ 10/02 205 Glucagon 1 MG ASDIR PRN 09/01 1330 AC (GLUCAGON) IM 10/01 1329 Local Anesthetics (Parenteral) Sig/Jan Start time Last Medication Dose Route Stop Time Status Admin Lidocaine 1 PATCH DAILY 09/03 0900 AC 09/03 (LIDODERM) TOPICAL 10/03 0859 0810 Allergies: Coded Allergies: No Known Allergies (03/23/11) Objective Physical Exam VS/I O: Last Documented: Result Date Time Pulse Ox 100 09/03 07 B/P 118/65 09/03 07 B/P Mean 82.6 09/03 0701 Temp 36.3 09/03 07 Pulse 84 09/03 0701 Resp 16 09/03 07 O2 Delivery Room air 09/03 0018 24 hour I O ending at 0700: 09/03 0700 09/02 1900 Intake Total 240 Output Total 850 Balance -610 Intake, Oral 240 Number 0 Incontinent Voids Number Voids 1 Output, Urine 850 PATIENT WEIGHT: Weight (lb): Weight (oz): Weight (kg): Results Findings/data: Laboratory Tests: 09/03 09/03 09/02 09/02 0518 0415 1929 1908 Chemistry Sodium (134 - 147 mEq/L) 135 Potassium (3.4 - 5.0 mEq/L) 4.6 Chloride (100 - 108 mEq/L) 111 H Carbon Dioxide (21 - 33 mEq/l) 22 Anion Gap (0 - 20) 6 BUN (7 - 18 mg/dL) 22 H Creatinine (0.6 - 1.3 mg/dL) 1.1 Glomerular Filtr Rate (90 - 95) 77.8 L Glucose (70 - 110 mg/dL) 92 POC Glucose (70 - 110 MG/DL) 88 210 H 159 H Calcium (8.0 - 10.5 mg/dL) 7.9 L Magnesium (1.80 - 2.40 mg/dL) 1.89 Total Bilirubin (0.0 - 1.0 mg/dL) 0.30 AST (15 - 37 IUnit/L) 15 ALT (30 - 65 IUnit/L) < 7 L Total Alk Phosphatase (20 - 125 IUnit/L) 93 Total Protein (6.4 - 8.2 g/dL) 6.7 Albumin (3.4 - 5.0 g/dL) 1.30 L Prealbumin (16.0 - 40.0 mg/dL) < 5.0 L Hematology WBC (4.5 - 11.0 x10 3/uL) 8.7 RBC (4.00 - 5.60 x10 6/uL) 2.92 L Hgb (12.5 - 16.9 g/dL) 8.0 L Hct (37.5 - 50.7 %) 25.5 L MCV (81.0 - 99.0 fL) 87.3 MCH (27.0 - 33.0 pg) 27.4 MCHC (33.0 - 37.0 g/dL) 31.4 L RDW (11.5 - 14.5 %) 13.9 Plt Count (150 - 400 x10 3/uL) 188 MPV (7.0 - 9.0 fL) 10.1 H Neut % (Auto) (56.0 - 77.0 %) 75.0 Lymph % (Auto) (14.0 - 32.0 %) 15.1 Boundary % (Auto) (4.8 - 9.0 %) 6.8 Eos % (Auto) (0.3 - 3.7 %) 2.3 Baso % (Auto) (0.0 - 2.0 %) 0.3 Neut # (Auto) (2.0 - 7.6 x10 3/uL) 6.51 Lymph # (Auto) (1.0 - 3.8 x10 3/uL) 1.31 Boundary # (Auto) (0.1 - 0.8 x10 3/uL) 0.59 Eos # (Auto) (0.0 - 0.2 x10 3/uL) 0.20 Baso # (Auto) (0.0 - 0.2 x10 3/uL) 0.03 Abs Immat Gran (auto) (0.00 - 0.03 x10 3/uL) 0. 04 H Add Manual Diff NO Immature Gran % (0.0 - 2.0 %) 0.5 Nucleated RBC % (0 - 0 %) 0.0 Nucleated RBCs # (Man) (0.0 - 0.1 x10 3/uL) 0.0 0 09/02 09/02 1732 1513 Chemistry POC Glucose (70 - 110 MG/DL) 102 257 H Microbiology: Date/Time Procedure - Status Source Growth 09/03 0415 MRSA DNA Surveillance Screen - RECD NASAL Diagnosis, Assessment Plan Free text A P: A/P: Patient is a 56 year old male who presents with: Past Medical History: Prostate abscess, right fo ot foot and ankle gangrene, diabetes, hypertension, hyperlipidemia Past Surgical History: TURP, right BKA Family History: Noncontributory Social History: Denies tobacco, alcohol, or drug use Allergies: NKDA Recent prostate abscess -Status post TURP with unroofing of abscess -IV antibiotics with vancomycin until 09-24-2022 Acute postoperative pain, right foot and ankle g angrene, requiring BKA -Patient is at risk for further amputations or l oss of limb due to comorbid conditions -Status post right BKA 08/28/2022 -Tylenol 650 mg p.o. every 6 hours as needed ofelia n scale 1 3 -Check 10/325 1 tablet p.o. every 4 hours as nee ded pain scale 4 10 -Dilaudid 1 mg IV every 6 ho urs as needed pain scale 7 10, second line therapy- patient will require close monitoring while usin g IV narcotics for any deleterious effect -Lidoderm patch to left ankle daily -IV antibiotics with vancomycin until 5- -Local wound care Uncontrolled diabetes, diabetes with complicatio ns, recent DKA -Hemoglobin A1c 13.4 -Recent right foot and ankle gangrene -Insulin sliding scale, FSBS, good glycemic cont rol Hypertension -We will monitor hypertension and tachycardia du e to pain, and hypotension as well as bradycardia secondary over sedation with narcotics -Hydralazine as needed - Elevated LFTs -08/20/22-AST 51, ALT 22 -09/03/2022-AST 15, ALT 7 -Patient will require close monitoring since he is using narcotics with Tylenol Impaired functional mobility, balance, gait, and endurance -PT/OT Constipation -We will monitor while utilizing opioid narcotic medications. -Adequate fluid intake also discussed. -Colace 100 mg p.o. twice daily as needed -Dulcolax 10 mg rectally daily as needed - Patient has failed conservative medical therapy. Patient will require monitoring while utilize na rcotic medications for any adverse effects, and will adjust as needed Plan of care discussed with patient and nurse All diagnostics of last 24 hours been reviewed. Risks versus benefits of opioid medications were reviewed to include, but not limited to respiratory depression, accid ental overdose, altered mental status, sudden , constipation which could result in bowel obstruction, seizures, withdrawal, dependency addiction, risk for falls . Case discussed with Dr Ng whom agrees. Thank you for the consultation. [place] [facility] NURSE: -database searched, no information found Kingsley Ng 09/21/22 2355: Attestations Physician Attestation Agree w/findings plan: The patient was seen and exa mined by Ben Klein. I personally developed the care plan, which was continued by the mid-level provider. I was immediately available. at 2048 Electronically Signed by Kingsley Ng MD on 3 at 2358 RPT #:[id number] END OF REPORT 2022-09-03 08:22:00-00:[address] [facility] ([facility]) Rehab Indiv Overall POC REPORT#:[id number] REPORT STATUS: Signed DATE:09/03/22 TIME: 821 PATIENT: KARMA ROWLAND UNIT #: [id number] ROOM/BED: [place] [address] : 63 AGE: 56 SEX: M ATTEND: Mj Vences MD ADM AUTHOR: Mj Vences MD * ALL edits or amendments must be made on the el ectronic/computer document * Individualized Overall POC HPI Impairment group: amputation of limb NOTE Document ONLY ONE Impairment Group Amputation of limb: unilateral lower limb (R BK A) Etiologic diagnosis: Gas gangrene of right foot and ankle S/P R BKA Medical Expected Course Expected DC destination: Expected DC destination: Home Problem List/A P: 1. Gangrene of right foot 2. 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 MRSA bacteremia Permanent Comment Treated prior to admission to Rehab 4. Cellulitis of foot, right 5. DKA (diabetic ketoacidosis) 6. Hyperglycemia 7. ERIKA (acute kidney injury) 8. Postoperative pain 9. Acute anemia 10. Prostate abscess 11. Impaired functional mobility, balance, gait , and endurance Medical prognosis: good Medical prognosis details: p t motivation, family/caregiver support, cognition, D /C plan Expected course of Tx: -PLOF: Independent with transfers and gait -Amputee rehab program -Comprehensive inpatient rehabilitation with physical, occupational and speech therapy 3 hours a day for 5 to 6 days per week. -15/12 rehabilitation physician supervision. -15/12 rehabilitation nursing care. -Case management for safe discharge planning. -Rehab MD to monitor comorbidities and functiona l progress. -Decubitus prevention -DVT prophylaxis-subcu heparin -Strict fall and safety precautions -Work on bed mobility, transfer training, ADLs, pre-gait and gait exercises -Increase endurance and strength -Monitor pain with therapies -OOB to chair -Monitor p.o. intake and nutrition -Glycemic control, blood sugars improved as per endocrinology -Continue antibiotics per ID -Endocrinology, ID, podiatry, cardiology, IM, pa in consulted -Continue wound care, NWB RLE -Amputee rehabilitation -Advance therapies as tolerated Functional Expected Course Functional expected course: The data set between the solid lines has been im ported from multidisciplinary team documentation: __ ANTICIPATED SERVICES IN ACUTE INPATIENT REHAB: DISCIPLINE Physical Therapy Occupational Therapy Speech Therapy INTENSITY (minutes/day) 90 90 FREQUENCY (days/week) 7 5 DURATION (# of days) 17 17 EXPECTED FUNCTIONAL OUTCOMES: CARE Rolling left and Independent (6) right discharge goal: CARE Sitting to Independent (6) lying discharge goal: CARE Lying to sitting Independent (6) on side of bed discharge goal: CARE Sitting to Partial/moderate asst (3) standing discharge goal: CARE Chair/bed to Setup/clean-up only (5) chair transfer discharge goal: CARE Car transfer Partial/moderate asst (3) discharge goal: CARE Walking 10 Partial/moderate asst (3) feet discharge goal: CARE Walking 50 feet Med cond/safety concern with two turns discharge goal: CARE Walking 150 Med cond/safety concern feet discharge goal: CARE Walking 10 feet on Med cond/safety concern uneven surface discharge goal: CARE 1 step (curb) Med cond/safety concern discharge goal: CARE 4 steps Med cond/safety concern discharge goal: CARE 12 steps Med cond/safety concern discharge goal: CARE Picking up Med cond/safety concern object discharge goal: CARE [place] 50 feet Independent (6) with two turns discharge goal: CARE [place] 150 Independent (6) feet discharge goal: CARE Toileting hygiene Supervise/touch asst (4) discharge goal: CARE Transfer on/off toilet Supervise/touch ass t (4) or commode discharge goal: CARE Eating discharge goal: Independent (6) CARE Oral hygiene Independent (6) discharge goal: CARE Shower/bathe Independent (6) self discharge goal: CARE Upper body Independent (6) dressing discharge goal: CARE Lower body Independent (6) dressing discharge goal: CARE Putting on/taking Independent (6) off footwear discharge goal: Bowel function goal: PATIENT WILL REMAIN CONTINE NT OF BOWEL Bladder function goal: PATIENT WILL REGAIN BLADD ER CONTROL _ ELOS Attestation: Based upon the review of clinical staff recommendations of frequency, duration and intensity and individual assessment of this patient, I estimate the following: See H P Estimated length of stay: 17 days MD Review/Recommendation Attestation: Based upon my physical evaluation of the patient and input from the interdisciplinary team members I have de veloped this interdisciplinary overall plan of care and determined the admission to the IRF is reasonable and necessary.The IOPOC will be updated weekly and m odified under my direction. Patient can be expected to actively participate in, and benefit from, an intensive rehab therapy prog roseanne whose intensity is not provided in lower levels of care. Complex acute rehab needs: Custom therap y tx plan, Mgt of complex Co-morb, Med adjustment/mgmt., New medical diagnosis, Postsurgery req mgt/care, Nutritional compromise, Hospitalist consult, VTE Risk at 0545 RPT #:[id number] END OF REPORT 2022-09-03 04:56:00-00:00 [facility] Re[facility] History Physical REPORT#:[id number] REPORT STATUS: Signed DATE:09/03/22 TIME: 455 PATIENT: KARMA ROWLAND UNIT #: [id number] ROOM/BED: [place] [address] : 63 AGE: 56 SEX: M ATTEND: Fredy Vences MD ADM AUTHOR: Guero Candelaria * ALL edits or amendments must be made on the [employer] document * See Addendum Guero Candelaria 09/03/22 0456: HPI HPI HPI: 56 yo HAM with long h/o DM, and HTN who was admitted for fever, flulike symptoms and altered mental status on 08/18. He was doing well until about 3 days prior to admission when he noted blister to have formed o n the dorsum of his foot. His foot started progressively getting more swollen and the blisters started enlarging and extending to his lateral f oot and ankle. He started feeling weak and nauseated. He was noted to have altered mentation and was brought to our ER. He was noted to be in DKA with Blood sugars grea ter than 600. He was seen by podiatry and surgery for BLE wounds and infectio n. He was treated in ICU for sepsis and DKA. He underwent incisional and excisional debridement of right foot and right ankle by podiatry. Patient also found to have prostate abscess underwent transrectal ultrasound aspiration of a bscess and transurethral resection of prostate and unroofing of abscess b y urology Dr. Bass. Endocrinology treated the DKA and blood sugars m uch improved. Patient's right foot was not salvageable and patient und erwent right BKA by Dr. LEROY on 08/28. Patient blood cultures showe d MRSA. Patient continued on antibiotics as per ID. MRI of the pelvis and foot completed. Patient r equired multiple PRBCs for anemia. Patient was found to have a possible small hematoma of the left calf on ultrasound. He complains of pain and swelling of the left ankle. Patient hemodynamically stable and plans are to be transferred to stepdown unit. He is on heparin subcu for VTE. Af ter surgery he is now being mobilized by PT and OT. He is wearing a [employer] orthotic for right knee /BKA protection. Prior to admission the patient was independent living in a single-story house with his spouse with a few steps up to front and back doo r. 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 is at bedside. Patient denies nausea, vomiting, fever, chills, chest pain, shortness of breath with diz ziness. He is requiring IV Dilaudid for pain control. Mental status back to baseline. Pt is progressing slowly with therapy d/t weakness and pain, self care deficit, decreased endurance and balance, and decreased functional mobility. Pt requiring acute inpt rehab for multidiscipli nary team of nursing, therapy, and physicians. Pt is willing and able to partici- kathleen in 3 hr/day inpt rehab to d/c home safely. Pt' s prior level of function was independent. Impairment group: amputation of limb NOTE Document ONLY ONE Impairment Group Amputation of limb: unilateral lower limb (R BK A) Etiologic diagnosis: Gas gangrene of right foot and ankle History Additional medical history: DM 2 since age 33 DM neuropathy HTN hyperlipidemia Additional surgical history: as above Additional family history: reviewed and non contributory Alcohol use: Denies EtOH use Drug use: Denies recreational drugs Smoking status for patients 13 years old or olde r: Never Smoker Other social history: Local resident, [facility] soci l support Medications: Home Medications: HEPARIN SODIUM,PORCINE (HEPARIN SOD 1ML) 5,000 U NIT SUBQ Q8HR hydrALAZINE (APRESOLINE) 10 MG IV Q6H PRN PRN SB P GREATER THAN 160 DOCUSATE SODIUM (COLACE) 100 MG PO Q12H PRN PRN CONSTIPATION BISACODYL (DULCOLAX) 10 MG RECTAL DAILY PRN PRN CONSTIPATION, SECOND LINE ONDANSETRON 4 MG IV Q6H PRN PRN N/V IF NOT ON PO DIET INSULIN GLARGINE (LANTUS) 15 UNIT SUBQ BEDTIME INSULIN LISPRO (HumaLOG) 0 UNIT SUBQ AC HS INSULIN LISPRO (HumaLOG) 5 UNIT SUBQ AC VANCOMYCIN (VANCOCIN) 1 GM IV Q12H CEFEPIME (MAXIPIME) 1 GM IV Q6HR Allergies: Coded Allergies: No Known Allergies (03/23/11) ROS ROS Constitutional: Reports: generalized weakness. Musculoskeletal: Reports: extremity pain. All systems rev neg: except as marked Objective Physical Exam VS: Last Documented: Result Date Time Pulse Ox 100 09/03 07 B/P 118/65 09/03 0701 B/P Mean 82.6 09/03 0701 Temp 97.3 09/03 0701 Pulse 84 09/03 0701 Resp 16 09/03 0701 O2 Delivery Room air 09/03 0018 PATIENT WEIGHT: Weight (lb): Weight (oz): Weight (kg): General appearance: alert, awake, oriented Psych: alert, normal affect, oriented x 3 HEENT: anicteric, sclera clear Neck: supple, no JVD Cardiovascular: S1/S2, no murmur Respiratory: aerating well, clear bilaterally Abdomen: bowel sounds present, non-distended, so ft Skin: no rash, R BKA wrapped with kerlix and ORALIA . L ankle/foot wrapped with kerlix Musculoskeletal - general: Musculoskeletal - general: BUE 5/5, LLE 4/5, R hip 3- 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 X 3, CNII-XII intact Results Findings/Data: Laboratory Tests 09/03 09/03 09/02 09/02 09/02 0518 0415 1929 1908 1732 Chemistry Sodium (134 - 147 mEq/L) 135 Potassium (3.4 - 5.0 mEq/L) 4.6 Chloride (100 - 108 mEq/L) 111 H Carbon Dioxide (21 - 33 mEq/l) 22 Anion Gap (0 - 20) 6 BUN (7 - 18 mg/dL) 22 H Creatinine (0.6 - 1.3 mg/dL) 1.1 Glomerular Filtr Rate (90 - 95) 77.8 L Glucose (70 - 110 mg/dL) 92 POC Glucose (70 - 110 MG/DL) 88 210 H 159 H 102 Calcium (8.0 - 10.5 mg/dL) 7.9 L Magnesium (1.80 - 2.40 mg/dL) 1.89 Total Bilirubin (0.0 - 1.0 mg/dL) 0.30 AST (15 - 37 IUnit/L) 15 ALT (30 - 65 IUnit/L) < 7 L Total Alk Phosphatase (20 - 125 93 IUnit/L) Total Protein (6.4 - 8.2 g/dL) 6.7 Albumin (3.4 - 5.0 g/dL) 1.30 L Prealbumin (16.0 - 40.0 mg/dL) < 5.0 L 09/02 1513 Chemistry POC Glucose (70 - 110 MG/DL) 257 H Laboratory Tests 09/03 0415 Hematology WBC (4.5 - 11.0 x10 3/uL) 8.7 RBC (4.00 - 5.60 x10 6/uL) 2.92 L Hgb (12.5 - 16.9 g/dL) 8.0 L Hct (37.5 - 50.7 %) 25.5 L MCV (81.0 - 99.0 fL) 87.3 MCH (27.0 - 33.0 pg) 27.4 MCHC (33.0 - 37.0 g/dL) 31.4 L RDW (11.5 - 14.5 %) 13.9 Plt Count (150 - 400 x10 3/uL) 188 MPV (7.0 - 9.0 fL) 10.1 H Neut % (Auto) (56.0 - 77.0 %) 75.0 Lymph % (Auto) (14.0 - 32.0 %) 15.1 Boundary % (Auto) (4.8 - 9.0 %) 6.8 Eos % (Auto) (0.3 - 3.7 %) 2.3 Baso % (Auto) (0.0 - 2.0 %) 0.3 Neut # (Auto) (2.0 - 7.6 x10 3/uL) 6.51 Lymph # (Auto) (1.0 - 3.8 x10 3/uL) 1.31 Boundary # (Auto) (0.1 - 0.8 x10 3/uL) 0.59 Eos # (Auto) (0.0 - 0.2 x10 3/uL) 0.20 Baso # (Auto) (0.0 - 0.2 x10 3/uL) 0.03 Abs Immat Gran (auto) (0.00 - 0.03 x10 3/uL) 0. 04 H Add Manual Diff NO Immature Gran % (0.0 - 2.0 %) 0.5 Nucleated RBC % (0 - 0 %) 0.0 Nucleated RBCs # (Man) (0.0 - 0.1 x10 3/uL) 0.0 0 Diagnosis, Assessment Plan Diagnosis, Assessment Plan Problem List/A P: 1. 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 Postoperative pain 3. Impaired mobility 4. Acute anemia 5. MRSA bacteremia 6. Cellulitis of foot, right 7. ERIKA (acute kidney injury) 8. Hyperglycemia 9. 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 Leroy Significant impairment in self-care, ADLs and fu nctional mobility Impaired mobility and gait Postoperative pain Diabetic polyneuropathy DKA, DM 2, poorly controlled, A1c greater than 1 4 PAD MRSA bacteremia/sepsis-treated on acute ERIKA Severe hyponatremia-resolved HTN Acute on chronic anemia requiring multiple trans fusions Left calf hematoma Edema and clinical arthritis left ankle Prostatic abscess 08/26: S/p transrectal ultrasound aspiration of ab scess and transurethral resection of prostate and unroofing of abscess Plan: -PLOF: Independent with transfers and gait -Amputee rehab program -Comprehensive inpatient rehabilitation with physical, occupational and speech therapy 3 hours a day for 5 to 6 days per week. -15/12 rehabilitation physician supervision. -15/12 rehabilitation nursing care. -Case management for safe discharge planning. -Rehab MD to monitor comorbidities and functiona l progress. -Decubitus prevention -DVT prophylaxis -Strict fall and safety precautions -Work on bed mobility, transfer training, ADLs, pre-gait and gait exercises -Increase endurance and strength -Monitor pain with therapies -OOB to chair -Monitor p.o. intake and nutrition -Continue antibiotics per ID -Tight glucose control -Endocrinology, ID, podiatry, cardiology, IM con sulted -Consult pain management -Continue wound care -Advance therapies as tolerated Total time 65 minutes greater than 50% of the ti me spent examining patient, discussing inpatient rehab requirements, plan of care, goals, therapies, labs, medications. All questions answered Review of comorbidities: Postoperative anemia, ERIKA, DM, HTN, diabetic dora ropathy, HLD Compare to PAS: POST ADMISSION PHYSICIAN EVALUATION ASSESSMENT: 1. Comparison of findings with the pread mission assessment are compatible with the post admission physician evaluation. 2. Review of the patient's prior and cur rent medical and functional conditions have been extensively reviewed and documented i n this H , and discussed with the referring physicians, patient and family. A t this time, there has been no change in the patient's current medical or func tional conditions and plans to go ahead with rehab are to begin today. Estimated length of stay: 17 days Acute Rehab Attestation NOTE Attestation is for MD only Complex acute rehab needs: Custom therap y tx plan, Mgt of complex Co-morb, Med adjustment/mgmt., New medical diagnosis, Postsurgery req mgt/care, Nutritional compromise, Hospitalist consult, VTE Risk Mj Vences 09/03/22 0820: HPI HPI NOTE Document ONLY ONE Impairment Group Diagnosis, Assessment Plan Diagnosis, Assessment Plan Problem List/A P: 1. Gangrene of right foot 2. 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 MRSA bacteremia Permanent Comment Treated prior to admission to Rehab 4. Cellulitis of foot, right 5. DKA (diabetic ketoacidosis) 6. Hyperglycemia 7. ERIKA (acute kidney injury) 8. Postoperative pain 9. Acute anemia 10. Prostate abscess 11. Impaired functional mobility, balance, gait , and endurance Orders: Procedure Date/time Status HGB HCT 09/04 0400 Active PHYSICIAN CONSULT 09/03 0813 Active Information Only 09/02 1702 Active Consultants: cardiology, endocrinology, hospital ist, infectious disease, podiatry Plan discussed with: patient, collaborating MD, consultants, nurse, interdisc care team Code Status/Resusc. Discussion Resuscitation discussion: Discussed with: patient Code status: full code Acute Rehab Attestation NOTE Attestation is for MD only Rehab MD attestation: Based upon my evaluation, the patient's medical management and rehabilitation needs require an inpatient stay and close physic jennifer involvement. Patient can be expected to actively participate in, and benefit from, an intensive rehab therapy prog roseanne whose intensity is not provided in lower levels of care. Significant barriers that can only be addressed in an acute inpatient rehab program, including, but not limited to: See preadmission screen. Complex acute rehab needs: Custom therap y tx plan, Mgt of complex Co-morb, Med adjustment/mgmt., New medical diagnosis, Postsurgery req mgt/care, Nutritional compromise, Hospitalist consult, VTE Risk Attestations Physician Attestation Agree w/findings plan: Patient seen and examined. Agree with the geovany gs and plan as documented by DAVID Tran at 0822 Electronically Signed by Guero Candelaria on 0 09/03/22 at 1047 Addendum 1: 09/03/22 0826 by Mj Vences MD Correction: Impairment group: amputation of limb NOTE Document ONLY ONE Impairment Group Amputation of limb: unilateral lower limb (R BK A) Etiologic diagnosis: Gas gangrene of right foot and ankle S/P R BKA at 0826 RPT #:[id number] END OF REPORT 2022-09-02 15:11:00-00:00 [facility] ([facility]) Endocrinology Progress Note REPORT#:[id number] REPORT STATUS: Signed DATE:09/02/22 TIME: 1511 PATIENT: KARMA ROWLAND UNIT #: [id number] ROOM/BED: [place] [address] : 61 AGE: 56 SEX: M ATTEND: Mikayla Ramires MD ADM AUTHOR: Braxton Chapin MD * ALL edits or amendments must be made on the [employer] document * Subjective Patient reports: no complaints Objective General VS: Last Documented: Result Date Time Pulse Ox 100 09/02 1244 B/P 149/70 09/02 1244 O2 Delivery Nasal cannula 09/02 1244 O2 Flow Rate 2 09/02 1244 Pulse 79 09/02 1244 Resp 18 09/02 1244 B/P Mean 0.0 09/03 519 Temp 36.4 09/02 0520 PATIENT WEIGHT: Weight (lb): 154 Weight (oz): 5.18 Weight (kg): 70.000 Medications: Active Meds + DC'd Last 24 Hrs Fentanyl Citrate (SUBLIMAZE) 0 .STK-MED ONE IV ( DC) Midazolam HCl (VERSED) 0 .STK-MED ONE IV (DC) Dextrose/Water (DEXTROSE 10% IN WATER) 250 ML .S TK-MED ONE IV (DC) Benzocaine/Butamben/Tetracaine HCl (CETACAINE) 0 .STK-MED ONE MM (DC) Fentanyl Citrate (SUBLIMAZE) 0 .STK-MED ONE IV ( DC) Midazolam HCl (VERSED) 0 .STK-MED ONE IV (DC) Acetaminophen (TYLENOL) 0 .STK-MED ONE PO (DC) Benzocaine/Butamben/Tetracaine HCl (CETACAINE) 0 .STK-MED ONE MM (DC) Sodium Chloride (SODIUM CHLORIDE) 10 ML BID IV Benzocaine/Butamben/Tetracaine HCl (CETACAINE) 1 APPLIC ASDIR PRN MM (DC ) Flumazenil (ROMAZICON) 0.2 MG ASDIR PRN IV (DC) Midazolam HCl (VERSED) 2 MG ASDIR PRN IV (DC) Naloxone HCl (NARCAN) 0.4 MG ASDIR PRN IV (DC) Vancomycin HCl (VANCOMYCIN HCL) 1,000 MG Q24H IV Sodium Chloride (SODIUM CHLORIDE 0.9%) 250 ML Sodium Chloride (SODIUM CHLORIDE) 10 ML ASDIR NV N IV Cefepime HCl (MAXIPIME) 1 GM Q6H IV Sodium Chloride (SODIUM CHLORIDE) 10 ML Miscellaneous Information (VANCOMYCIN PHARMACY T O DOSE) 1 EACH ASDIR IV (CKD) Hydralazine HCl (APRESOLINE) 10 MG Q6H PRN PRN I V Insulin Glargine (Lantus/Semglee) 15 UNIT BEDTIM E SUBQ Insulin Human Lispro (HUMALOG) 5 UNIT AC SUBQ Lidocaine (LIDODERM) 1 PATCH DAILY TOPICAL Hydromorphone HCl (DILAUDID) 1 MG Q3H PRN PRN IV Hydromorphone HCl (DILAUDID) 0.5 MG Q3H PRN PRN IV Lorazepam (ATIVAN) 1 MG ONCE PRN IV Sodium Chloride (SODIUM CHLORIDE) 0 ASDIR PRN IV Insulin Human Lispro (HUMALOG) 0 AC HS SUBQ Dextrose/Water (DEXTROSE 10% IN WATER) 125 ML DIR PRN IV (CKD) Dextrose/Water (DEXTROSE 10% IN WATER) 250 ML DIR PRN IV (CKD) Glucagon (GLUCAGON) 1 MG ASDIR PRN IM Dextrose/Water (Dextrose 10% 1,000 mL) 1,000 ML ASDIR IV Acetaminophen (TYLENOL) 650 MG Q6H PRN PRN PO Bisacodyl (DULCOLAX) 10 MG DAILY PRN PRN RECTAL Docusate Sodium (COLACE) 100 MG Q12H PRN PRN PO Ondansetron HCl (ZOFRAN) 4 MG Q6H PRN PRN IV Heparin Sodium (HEPARIN 5000 UNITS/ML) 5,000 UNI T Q8HR SUBQ Physical Exam General appearance: alert, awake Diagnosis, Assessment Plan Hospital course to date: Laboratory Tests: 09/02 09/02 09/02 09/02 09/02 1048 1011 1009 0629 0430 Chemistry Sodium (134 - 147 mEq/L) 134 Potassium (3.4 - 5.0 mEq/L) 5.0 Chloride (100 - 108 mEq/L) 111 H Carbon Dioxide (21 - 33 mEq/l) 21 Anion Gap (0 - 20) 7 BUN (7 - 18 mg/dL) 26 H Creatinine (0.6 - 1.3 mg/dL) 1.2 Glomerular Filtr Rate (90 - 95) 70.1 L Glucose (70 - 110 mg/dL) 88 POC Glucose (70 - 110 MG/DL) 162 H 62 L 63 L 77 Calcium (8.0 - 10.5 mg/dL) 7.4 L 09/01 09/01 193 1704 Chemistry POC Glucose (70 - 110 MG/DL) 91 127 H Laboratory Tests: 09/01 09/01 09/01 09/01 09/01 1704 1104 0852 0704 0345 Chemistry POC Glucose (70 - 110 MG/DL) 127 H 118 H 145 H Total Creatine Kinase (46 - 171 79 Units/L) Serology SARS-CoV-2 Ag (Rapid) (Negative) Negative 09/01 1915 Chemistry POC Glucose (70 - 110 MG/DL) 176 H Laboratory Tests: 08/31 08/31 08/31 08/31 08/30 1240 1203 0714 0642 1943 Chemistry Sodium (134 - 147 mEq/L) 136 Potassium (3.4 - 5.0 mEq/L) 5.4 H Chloride (100 - 108 mEq/L) 110 H Carbon Dioxide (21 - 33 mEq/l) 22 Anion Gap (0 - 20) 9 BUN (7 - 18 mg/dL) 29 H Creatinine (0.6 - 1.3 mg/dL) 1.2 Glomerular Filtr Rate (90 - 95) 70.1 L Glucose (70 - 110 mg/dL) 129 H POC Glucose (70 - 110 MG/DL) 76 44 L 110 140 H Calcium (8.0 - 10.5 mg/dL) 7.2 L Hematology WBC (4.5 - 11.0 x10 3/uL) 8.7 RBC (4.00 - 5.60 x10 6/uL) 2.50 L Hgb (12.5 - 16.9 g/dL) 6.9 L Hct (37.5 - 50.7 %) 21.7 L MCV (81.0 - 99.0 fL) 86.8 MCH (27.0 - 33.0 pg) 27.6 MCHC (33.0 - 37.0 g/dL) 31.8 L RDW (11.5 - 14.5 %) 14.3 Plt Count (150 - 400 x10 3/uL) 208 MPV (7.0 - 9.0 fL) 9.4 H Neut % (Auto) (56.0 - 77.0 %) 76.3 Lymph % (Auto) (14.0 - 32.0 %) 16.8 Boundary % (Auto) (4.8 - 9.0 %) 4.8 Eos % (Auto) (0.3 - 3.7 %) 1.6 Baso % (Auto) (0.0 - 2.0 %) 0.2 Neut # (Auto) (2.0 - 7.6 x10 3/uL) 6.63 Lymph # (Auto) (1.0 - 3.8 x10 3/uL) 1.46 Boundary # (Auto) (0.1 - 0.8 x10 3/uL) 0.42 Eos # (Auto) (0.0 - 0.2 x10 3/uL) 0.14 Baso # (Auto) (0.0 - 0.2 x10 3/uL) 0.02 Abs Immat Gran (auto) (0.00 - 0.03 0.03 x10 3/uL) Add Manual Diff NO Immature Gran % (0.0 - 2.0 %) 0.3 Nucleated RBC % (0 - 0 %) 0.0 Nucleated RBCs # (Man) (0.0 - 0.1 0.00 x10 3/uL) 08/30 1650 Chemistry POC Glucose (70 - 110 MG/DL) 109 Laboratory Tests: 08/30 1218 0858 0545 2010 Chemistry Sodium (134 - 147 mEq/L) 136 Potassium (3.4 - 5.0 mEq/L) 5.2 H Chloride (100 - 108 mEq/L) 109 H Carbon Dioxide (21 - 33 mEq/l) 23 Anion Gap (0 - 20) 9 BUN (7 - 18 mg/dL) 33 H Creatinine (0.6 - 1.3 mg/dL) 1.3 Glomerular Filtr Rate (90 - 95) 63.7 L Glucose (70 - 110 mg/dL) 65 L POC Glucose (70 - 110 MG/DL) 109 81 83 81 Calcium (8.0 - 10.5 mg/dL) 7.3 L Phosphorus (2.5 - 4.9 MG/DL) 4.6 Magnesium (1.80 - 2.40 mg/dL) 2.01 Hematology WBC (4.5 - 11.0 x10 3/uL) 12.6 H RBC (4.00 - 5.60 x10 6/uL) 2.55 L Hgb (12.5 - 16.9 g/dL) 7.2 L Hct (37.5 - 50.7 %) 22.7 L MCV (81.0 - 99.0 fL) 89.0 MCH (27.0 - 33.0 pg) 28.2 MCHC (33.0 - 37.0 g/dL) 31.7 L RDW (11.5 - 14.5 %) 14.5 Plt Count (150 - 400 x10 3/uL) 197 MPV (7.0 - 9.0 fL) 9.5 H Neut % (Auto) (56.0 - 77.0 %) 78.7 H Lymph % (Auto) (14.0 - 32.0 %) 13.4 L Boundary % (Auto) (4.8 - 9.0 %) 6.3 Eos % (Auto) (0.3 - 3.7 %) 0.8 Baso % (Auto) (0.0 - 2.0 %) 0.2 Neut # (Auto) (2.0 - 7.6 x10 3/uL) 9.96 H Lymph # (Auto) (1.0 - 3.8 x10 3/uL) 1.69 Boundary # (Auto) (0.1 - 0.8 x10 3/uL) 0.79 Eos # (Auto) (0.0 - 0.2 x10 3/uL) 0.10 Baso # (Auto) (0.0 - 0.2 x10 3/uL) 0.02 Abs Immat Gran (auto) (0.00 - 0.03 0.08 H x10 3/uL) Add Manual Diff NO Immature Gran % (0.0 - 2.0 %) 0.6 Nucleated RBC % (0 - 0 %) 0.0 Nucleated RBCs # (Man) (0.0 - 0.1 0.00 x10 3/uL) Laboratory Tests: 08/29 08/29 08/29 08/29 08/29 1655 1041 0912 0844 0513 Chemistry POC Glucose (70 - 110 MG/DL) 157 H 105 70 70 Prealbumin (16.0 - 40.0 mg/dL) < 5.0 L 08/29 Chemistry Sodium (134 - 147 mEq/L) 136 Potassium (3.4 - 5.0 mEq/L) 4.9 Chloride (100 - 108 mEq/L) 109 H Carbon Dioxide (21 - 33 mEq/l) 23 Anion Gap (0 - 20) 9 BUN (7 - 18 mg/dL) 31 H Creatinine (0.6 - 1.3 mg/dL) 1.5 H Glomerular Filtr Rate (90 - 95) 53.6 L Glucose (70 - 110 mg/dL) 90 POC Glucose (70 - 110 MG/DL) 145 H Calcium (8.0 - 10.5 mg/dL) 7.2 L Phosphorus (2.5 - 4.9 MG/DL) 5.2 H Magnesium (1.80 - 2.40 mg/dL) 1.91 Hematology WBC (4.5 - 11.0 x10 3/uL) 14.2 H RBC (4.00 - 5.60 x10 6/uL) 2.50 L Hgb (12.5 - 16.9 g/dL) 7.1 L Hct (37.5 - 50.7 %) 21.5 L MCV (81.0 - 99.0 fL) 86.0 MCH (27.0 - 33.0 pg) 28.4 MCHC (33.0 - 37.0 g/dL) 33.0 RDW (11.5 - 14.5 %) 14.6 H Plt Count (150 - 400 x10 3/uL) 212 MPV (7.0 - 9.0 fL) 9.2 H Neut % (Auto) (56.0 - 77.0 %) 83.2 H Lymph % (Auto) (14.0 - 32.0 %) 10.0 L Boundary % (Auto) (4.8 - 9.0 %) 5.6 Eos % (Auto) (0.3 - 3.7 %) 0.5 Baso % (Auto) (0.0 - 2.0 %) 0.1 Neut # (Auto) (2.0 - 7.6 x10 3/uL) 11.78 H Lymph # (Auto) (1.0 - 3.8 x10 3/uL) 1.42 Boundary # (Auto) (0.1 - 0.8 x10 3/uL) 0.79 Eos # (Auto) (0.0 - 0.2 x10 3/uL) 0.07 Baso # (Auto) (0.0 - 0.2 x10 3/uL) 0.02 Abs Immat Gran (auto) (0.00 - 0.03 x10 3/uL) 0. 08 H Add Manual Diff NO Immature Gran % (0.0 - 2.0 %) 0.6 Nucleated RBC % (0 - 0 %) 0.0 Nucleated RBCs # (Man) (0.0 - 0.1 x10 3/uL) 0.0 0 Laboratory Tests: 08/28 08/28 08/28 08/28 1709 1302 1218 0624 Chemistry POC Glucose (70 - 110 MG/DL) 103 206 H 185 H 18 0 H 08/28 08/27 08/27 0420 2050 1825 Chemistry Sodium (134 - 147 mEq/L) 137 136 Potassium (3.4 - 5.0 mEq/L) 5.0 5.1 H Chloride (100 - 108 mEq/L) 109 H 109 H Carbon Dioxide (21 - 33 mEq/l) 21 20 L Anion Gap (0 - 20) 12 12 BUN (7 - 18 mg/dL) 30 H 30 H Creatinine (0.6 - 1.3 mg/dL) 1.4 H 1.2 Glomerular Filtr Rate (90 - 95) 58.3 L 70.1 L Glucose (70 - 110 mg/dL) 167 H 161 H POC Glucose (70 - 110 MG/DL) 87 Calcium (8.0 - 10.5 mg/dL) 7.7 L 7.5 L Ionized Calcium Mitzi (1.09 - 1.30 MMOL/L) 1.12 Phosphorus (2.5 - 4.9 MG/DL) 4.8 Magnesium (1.80 - 2.40 mg/dL) 1.89 Total Bilirubin (0.0 - 1.0 mg/dL) 0.40 AST (15 - 37 IUnit/L) 17 ALT (30 - 65 IUnit/L) 9 L Total Alk Phosphatase (20 - 125 IUnit/L) 111 Total Protein (6.4 - 8.2 g/dL) 5.8 L Albumin (3.4 - 5.0 g/dL) 1.30 L Hematology WBC (4.5 - 11.0 x10 3/uL) 13.8 H RBC (4.00 - 5.60 x10 6/uL) 2.83 L Hgb (12.5 - 16.9 g/dL) 8.0 L Hct (37.5 - 50.7 %) 24.0 L MCV (81.0 - 99.0 fL) 84.8 MCH (27.0 - 33.0 pg) 28.3 MCHC (33.0 - 37.0 g/dL) 33.3 RDW (11.5 - 14.5 %) 14.6 H Plt Count (150 - 400 x10 3/uL) 244 MPV (7.0 - 9.0 fL) 9.2 H Neut % (Auto) (56.0 - 77.0 %) 86.7 H Lymph % (Auto) (14.0 - 32.0 %) 8.2 L Boundary % (Auto) (4.8 - 9.0 %) 4.1 L Eos % (Auto) (0.3 - 3.7 %) 0.4 Baso % (Auto) (0.0 - 2.0 %) 0.1 Neut # (Auto) (2.0 - 7.6 x10 3/uL) 11.92 H Lymph # (Auto) (1.0 - 3.8 x10 3/uL) 1.13 Boundary # (Auto) (0.1 - 0.8 x10 3/uL) 0.57 Eos # (Auto) (0.0 - 0.2 x10 3/uL) 0.05 Baso # (Auto) (0.0 - 0.2 x10 3/uL) 0.01 Abs Immat Gran (auto) (0.00 - 0.03 x10 3/uL) 0. 07 H Add Manual Diff NO Immature Gran % (0.0 - 2.0 %) 0.5 Nucleated RBC % (0 - 0 %) 0.0 Nucleated RBCs # (Man) (0.0 - 0.1 x10 3/uL) 0.0 0 Microbiology: Date/Time Procedure - Status Source Growth 08/29 1347 Blood Culture - RECD BLOOD 08/29 1347 Blood Culture - RECD BLOOD Recent Impressions: ULTRASOUND - DUP VEIN UNI/LTD 04/06 0857 Report Impression - Status: SIGNED Entered: 08/28/2022 09 IMPRESSION: 1. No evidence of venous thrombosis involving le ft lower extremity. 2. Approximately 8 x 2 x 1.3 cm complex fluid co llection along the left upper calf probably representing a smal l hematoma. Impression By: [id number] - Hakeem Soto RADIOLOGY - XR FLUOROSCOPY 0-60 MIN 08/28 1101 Report Impression - Status: SIGNED Entered: 08/28/2022 1120 IMPRESSION: Fluoroscopy dosage documentation. See also separ ate procedure notes. Impression By: [email or web address] - Bishop Atkins M.D. Laboratory Tests: 08/27 08/27 08/27 08/27 1728 1147 0824 0533 Chemistry Sodium (134 - 147 mEq/L) 137 Potassium (3.4 - 5.0 mEq/L) 5.3 H Chloride (100 - 108 mEq/L) 110 H Carbon Dioxide (21 - 33 mEq/l) 20 L Anion Gap (0 - 20) 12 BUN (7 - 18 mg/dL) 33 H Creatinine (0.6 - 1.3 mg/dL) 1.2 Glomerular Filtr Rate (90 - 95) 70.1 L Glucose (70 - 110 mg/dL) 285 H POC Glucose (70 - 110 MG/DL) 148 H 244 H 294 H Calcium (8.0 - 10.5 mg/dL) 7.2 L Phosphorus (2.5 - 4.9 MG/DL) 5.4 H Magnesium (1.80 - 2.40 mg/dL) 1.94 Total Bilirubin (0.0 - 1.0 mg/dL) 0.40 AST (15 - 37 IUnit/L) 12 L ALT (30 - 65 IUnit/L) 9 L Total Alk Phosphatase (20 - 125 IUnit/L) 111 Total Protein (6.4 - 8.2 g/dL) 5.7 L Albumin (3.4 - 5.0 g/dL) 1.30 L 08/27 Chemistry POC Glucose (70 - 110 MG/DL) 148 H Ionized Calcium Mitzi (1.09 - 1.30 MMOL/L) 1.08 L Hematology WBC (4.5 - 11.0 x10 3/uL) 15.9 H RBC (4.00 - 5.60 x10 6/uL) 3.07 L Hgb (12.5 - 16.9 g/dL) 8.6 L Hct (37.5 - 50.7 %) 25.9 L MCV (81.0 - 99.0 fL) 84.4 MCH (27.0 - 33.0 pg) 28.0 MCHC (33.0 - 37.0 g/dL) 33.2 RDW (11.5 - 14.5 %) 14.6 H Plt Count (150 - 400 x10 3/uL) 250 MPV (7.0 - 9.0 fL) 9.8 H Neut % (Auto) (56.0 - 77.0 %) 88.7 H Lymph % (Auto) (14.0 - 32.0 %) 7.0 L Boundary % (Auto) (4.8 - 9.0 %) 3.3 L Eos % (Auto) (0.3 - 3.7 %) 0.3 Baso % (Auto) (0.0 - 2.0 %) 0.1 Neut # (Auto) (2.0 - 7.6 x10 3/uL) 14.14 H Lymph # (Auto) (1.0 - 3.8 x10 3/uL) 1.11 Boundary # (Auto) (0.1 - 0.8 x10 3/uL) 0.52 Eos # (Auto) (0.0 - 0.2 x10 3/uL) 0.04 Baso # (Auto) (0.0 - 0.2 x10 3/uL) 0.02 Abs Immat Gran (auto) (0.00 - 0.03 x10 3/uL) 0. 10 H Add Manual Diff NO Immature Gran % (0.0 - 2.0 %) 0.6 Nucleated RBC % (0 - 0 %) 0.0 Nucleated RBCs # (Man) (0.0 - 0.1 x10 3/uL) 0.0 0 Microbiology: Date/Time Procedure - Status Source Growth 08/26 2216 Wound Culture - RES ABSCESS GRAM NEGATIVE JAKOB 08/26 2216 Anaerobic Culture - RES ABSCESS 08/26 2216 Gram Stain - RES ABSCESS Laboratory Tests: 08/26 08/26 08/25 0906 0430 2007 Chemistry Sodium (134 - 147 mEq/L) 136 Potassium (3.4 - 5.0 mEq/L) 4.8 Chloride (100 - 108 mEq/L) 109 H Carbon Dioxide (21 - 33 mEq/l) 21 Anion Gap (0 - 20) 11 BUN (7 - 18 mg/dL) 32 H Creatinine (0.6 - 1.3 mg/dL) 1.1 Glomerular Filtr Rate (90 - 95) 77.8 L Glucose (70 - 110 mg/dL) 151 H POC Glucose (70 - 110 MG/DL) 163 H 113 H Calcium (8.0 - 10.5 mg/dL) 7.7 L Ionized Calcium Mitzi (1.09 - 1.30 MMOL/L) 1.11 Phosphorus (2.5 - 4.9 MG/DL) 4.6 Magnesium (1.80 - 2.40 mg/dL) 1.89 Total Bilirubin (0.0 - 1.0 mg/dL) 0.50 AST (15 - 37 IUnit/L) 19 ALT (30 - 65 IUnit/L) 11 L Total Alk Phosphatase (20 - 125 IUnit/L) 149 H Total Protein (6.4 - 8.2 g/dL) 5.5 L Albumin (3.4 - 5.0 g/dL) 1.30 L Hematology WBC (4.5 - 11.0 x10 3/uL) 17.7 H RBC (4.00 - 5.60 x10 6/uL) 2.44 L Hgb (12.5 - 16.9 g/dL) 6.7 L Hct (37.5 - 50.7 %) 20.4 L MCV (81.0 - 99.0 fL) 83.6 MCH (27.0 - 33.0 pg) 27.5 MCHC (33.0 - 37.0 g/dL) 32.8 L RDW (11.5 - 14.5 %) 14.7 H Plt Count (150 - 400 x10 3/uL) 253 MPV (7.0 - 9.0 fL) 9.9 H Neut % (Auto) (56.0 - 77.0 %) 87.5 H Lymph % (Auto) (14.0 - 32.0 %) 7.4 L Boundary % (Auto) (4.8 - 9.0 %) 3.9 L Eos % (Auto) (0.3 - 3.7 %) 0.5 Baso % (Auto) (0.0 - 2.0 %) 0.1 Neut # (Auto) (2.0 - 7.6 x10 3/uL) 15.49 H Lymph # (Auto) (1.0 - 3.8 x10 3/uL) 1.31 Boundary # (Auto) (0.1 - 0.8 x10 3/uL) 0.69 Eos # (Auto) (0.0 - 0.2 x10 3/uL) 0.08 Baso # (Auto) (0.0 - 0.2 x10 3/uL) 0.01 Abs Immat Gran (auto) (0.00 - 0.03 x10 3/uL) 0. 11 H Add Manual Diff NO Immature Gran % (0.0 - 2.0 %) 0.6 Nucleated RBC % (0 - 0 %) 0.0 Nucleated RBCs # (Man) (0.0 - 0.1 x10 3/uL) 0.0 0 Laboratory Tests: 08/25 08/25 08/25 08/25 1723 1111 1044 1044 Chemistry Potassium (3.4 - 5.0 mEq/L) 4.5 POC Glucose (70 - 110 MG/DL) 132 H 143 H Total Creatine Kinase (46 - 171 Units/L) 17 L Urines Urine Color (YEL/STRAW) YELLOW Urine Appearance (CLEAR) TURBID H Urine pH (5.0 - 7.0) 5.0 Ur Specific [place] (1.005 - 1.030) 1.012 Urine Protein (NEGATIVE) 2+ H Urine Glucose (UA) (NEGATIVE) NEGATIVE Urine Ketones (NEGATIVE) NEGATIVE Urine Blood (NEGATIVE) 2+ H Urine Nitrite (NEGATIVE) NEGATIVE Urine Bilirubin (NEGATIVE) NEGATIVE Urine Urobilinogen (0.2 - 1.0 mg/dL) 0.2 Ur Leukocyte Esterase (NEGATIVE) 3+ H Urine RBC (0 - 3 RBC/HPF) 21-50 Urine WBC (0 - 3 WBC/HPF) >50 H Ur Squamous Epith Cells (NONE SEEN /HPF) NONE S EEN Ur Transition Epith Cell (NONE SEEN /HPF) 3+ H Urine Bacteria (NONE SEEN /HPF) TRACE Urine Mucus (NONE SEEN /LPF) TRACE 08/25 08/25 08/24 0750 0744 2130 Chemistry Sodium (134 - 147 mEq/L) 135 Potassium (3.4 - 5.0 mEq/L) 5.4 H Chloride (100 - 108 mEq/L) 110 H Carbon Dioxide (21 - 33 mEq/l) 19 L Anion Gap (0 - 20) 11 BUN (7 - 18 mg/dL) 25 H Creatinine (0.6 - 1.3 mg/dL) 1.1 Glomerular Filtr Rate (90 - 95) 77.8 L Glucose (70 - 110 mg/dL) 162 H POC Glucose (70 - 110 MG/DL) 166 H 140 H Calcium (8.0 - 10.5 mg/dL) 7.3 L Ionized Calcium Mitzi (1.09 - 1.30 MMOL/L) 0.96 L Phosphorus (2.5 - 4.9 MG/DL) 4.5 Magnesium (1.80 - 2.40 mg/dL) 1.88 Total Bilirubin (0.0 - 1.0 mg/dL) 0.50 AST (15 - 37 IUnit/L) 40 H ALT (30 - 65 IUnit/L) 21 L Total Alk Phosphatase (20 - 125 IUnit/L) 159 H Total Protein (6.4 - 8.2 g/dL) 5.6 L Albumin (3.4 - 5.0 g/dL) 1.30 L Hematology WBC (4.5 - 11.0 x10 3/uL) 17.9 H RBC (4.00 - 5.60 x10 6/uL) 2.64 L Hgb (12.5 - 16.9 g/dL) 7.3 L Hct (37.5 - 50.7 %) 22.6 L MCV (81.0 - 99.0 fL) 85.6 MCH (27.0 - 33.0 pg) 27.7 MCHC (33.0 - 37.0 g/dL) 32.3 L RDW (11.5 - 14.5 %) 15.1 H Plt Count (150 - 400 x10 3/uL) 226 MPV (7.0 - 9.0 fL) 10.7 H Neut % (Auto) (56.0 - 77.0 %) 86.3 H Lymph % (Auto) (14.0 - 32.0 %) 8.1 L Boundary % (Auto) (4.8 - 9.0 %) 4.3 L Eos % (Auto) (0.3 - 3.7 %) 0.5 Baso % (Auto) (0.0 - 2.0 %) 0.1 Neut # (Auto) (2.0 - 7.6 x10 3/uL) 15.44 H Lymph # (Auto) (1.0 - 3.8 x10 3/uL) 1.45 Boundary # (Auto) (0.1 - 0.8 x10 3/uL) 0.77 Eos # (Auto) (0.0 - 0.2 x10 3/uL) 0.09 Baso # (Auto) (0.0 - 0.2 x10 3/uL) 0.02 Abs Immat Gran (auto) (0.00 - 0.03 x10 3/uL) 0. 13 H Add Manual Diff NO Immature Gran % (0.0 - 2.0 %) 0.7 Nucleated RBC % (0 - 0 %) 0.0 Nucleated RBCs # (Man) (0.0 - 0.1 x10 3/uL) 0.0 0 Microbiology: Date/Time Procedure - Status Source Growth 08/25 1044 Urine Culture - [facility]KST URINE 08/25 1044 Blood Culture - RECD BLOOD 08/25 1044 Blood Culture - RECD BLOOD Laboratory Tests: 08/20 08/20 08/20 08/20 08/20 1107 0756 0647 0554 0454 Chemistry Sodium (134 - 147 mEq/L) 137 Potassium (3.4 - 5.0 mEq/L) 3.7 Chloride (100 - 108 mEq/L) 107 Carbon Dioxide (21 - 33 mEq/l) 20 L Anion Gap (0 - 20) 14 BUN (7 - 18 mg/dL) 44 H Creatinine (0.6 - 1.3 mg/dL) 1.2 Glomerular Filtr Rate (90 - 95) 70.1 L Glucose (70 - 110 mg/dL) 212 H POC Glucose (70 - 110 MG/DL) 173 H 192 H 206 H 198 H Calcium (8.0 - 10.5 mg/dL) 7.3 L Ionized Calcium Mitzi (1.09 - 1.30 MMOL/L) 1.04 L Phosphorus (2.5 - 4.9 MG/DL) 3.4 Magnesium (1.80 - 2.40 mg/dL) 2.05 Total Bilirubin (0.0 - 1.0 mg/dL) 0.60 AST (15 - 37 IUnit/L) 51 H ALT (30 - 65 IUnit/L) 22 L Total Alk Phosphatase (20 - 125 IUnit/L) 178 H Total Protein (6.4 - 8.2 g/dL) 5.7 L Albumin (3.4 - 5.0 g/dL) 2.00 L Hematology WBC (4.5 - 11.0 x10 3/uL) 22.8 H RBC (4.00 - 5.60 x10 6/uL) 2.63 L Hgb (12.5 - 16.9 g/dL) 7.1 L Hct (37.5 - 50.7 %) 21.3 L MCV (81.0 - 99.0 fL) 81.0 MCH (27.0 - 33.0 pg) 27.0 MCHC (33.0 - 37.0 g/dL) 33.3 RDW (11.5 - 14.5 %) 14.7 H Plt Count (150 - 400 x10 3/uL) 190 MPV (7.0 - 9.0 fL) 10.0 H Neut % (Auto) (56.0 - 77.0 %) 87.2 H Lymph % (Auto) (14.0 - 32.0 %) 4.8 L Boundary % (Auto) (4.8 - 9.0 %) 2.9 L Eos % (Auto) (0.3 - 3.7 %) 0.0 L Baso % (Auto) (0.0 - 2.0 %) 0.2 Neut # (Auto) (2.0 - 7.6 x10 3/uL) 19.90 H Lymph # (Auto) (1.0 - 3.8 x10 3/uL) 1.10 Boundary # (Auto) (0.1 - 0.8 x10 3/uL) 0.66 Eos # (Auto) (0.0 - 0.2 x10 3/uL) 0.00 Baso # (Auto) (0.0 - 0.2 x10 3/uL) 0.04 Abs Immat Gran (auto) (0.00 - 0.03 1.12 H x10 3/uL) Add Manual Diff NO Immature Gran % (0.0 - 2.0 %) 4.9 H Nucleated RBC % (0 - 0 %) 0.0 Nucleated RBCs # (Man) (0.0 - 0.1 0.00 x10 3/uL) 08/20 08/20 08/19 08/19 08/19 0259 0101 2352 2322 2310 Chemistry Sodium (134 - 147 mEq/L) 132 L Potassium (3.4 - 5.0 mEq/L) 3.7 Chloride (100 - 108 mEq/L) 107 Carbon Dioxide (21 - 33 mEq/l) 21 Anion Gap (0 - 20) 8 BUN (7 - 18 mg/dL) 41 H Creatinine (0.6 - 1.3 mg/dL) 1.2 Glomerular Filtr Rate (90 - 95) 70.1 L Glucose (70 - 110 mg/dL) 184 H POC Glucose (70 - 110 MG/DL) 195 H 181 H 182 H 191 H Calcium (8.0 - 10.5 mg/dL) 7.1 L Phosphorus (2.5 - 4.9 MG/DL) 3.3 Magnesium (1.80 - 2.40 mg/dL) 2.09 Albumin (3.4 - 5.0 g/dL) 1.70 L Hematology Hgb (12.5 - 16.9 g/dL) 7.0 L Hct (37.5 - 50.7 %) 21.8 L 08/19 08/19 08/19 08/19 08/19 2223 [id number] 172 165 Chemistry Sodium (134 - 147 mEq/L) 133 L Potassium (3.4 - 5.0 mEq/L) 3.6 Chloride (100 - 108 mEq/L) 105 Carbon Dioxide (21 - 33 mEq/l) 21 Anion Gap (0 - 20) 10 BUN (7 - 18 mg/dL) 45 H Creatinine (0.6 - 1.3 mg/dL) 1.2 Glomerular Filtr Rate (90 - 95) 70.1 L Glucose (70 - 110 mg/dL) 247 H POC Glucose (70 - 110 MG/DL) 165 H 209 H 218 H 219 H Calcium (8.0 - 10.5 mg/dL) 7.6 L Phosphorus (2.5 - 4.9 MG/DL) 3.0 Magnesium (1.80 - 2.40 mg/dL) 2.03 Albumin (3.4 - 5.0 g/dL) 1.40 L Hematology WBC (4.5 - 11.0 x10 3/uL) 20.3 H RBC (4.00 - 5.60 x10 6/uL) 2.57 L Hgb (12.5 - 16.9 g/dL) 7.1 L Hct (37.5 - 50.7 %) 20.9 L MCV (81.0 - 99.0 fL) 81.3 MCH (27.0 - 33.0 pg) 27.6 MCHC (33.0 - 37.0 g/dL) 34.0 RDW (11.5 - 14.5 %) 14.3 Plt Count (150 - 400 x10 3/uL) 197 MPV (7.0 - 9.0 fL) 10.2 H Neut % (Auto) (56.0 - 77.0 %) 88.7 H Lymph % (Auto) (14.0 - 32.0 %) 3.8 L Boundary % (Auto) (4.8 - 9.0 %) 3.7 L Eos % (Auto) (0.3 - 3.7 %) 0.0 L Baso % (Auto) (0.0 - 2.0 %) 0.3 Neut # (Auto) (2.0 - 7.6 x10 3/uL) 17.97 H Lymph # (Auto) (1.0 - 3.8 x10 3/uL) 0.76 L Boundary # (Auto) (0.1 - 0.8 x10 3/uL) 0.74 Eos # (Auto) (0.0 - 0.2 x10 3/uL) 0.00 Baso # (Auto) (0.0 - 0.2 x10 3/uL) 0.07 Abs Immat Gran (auto) (0.00 - 0.03 0.71 H x10 3/uL) Add Manual Diff NO Immature Gran % (0.0 - 2.0 %) 3.5 H Nucleated RBC % (0 - 0 %) 0.0 Nucleated RBCs # (Man) (0.0 - 0.1 0.00 x10 3/uL) 08/19 08/19 1622 1601 Chemistry POC Glucose (70 - 110 MG/DL) 232 H Urines Urine Color (YEL/STRAW) YELLOW Urine Appearance (CLEAR) SL CLOUDY Urine pH (5.0 - 7.0) 5.0 Ur Specific [place] (1.005 - 1.030) 1.013 Urine Protein (NEGATIVE) 1+ H Urine Glucose (UA) (NEGATIVE) 3+ H Urine Ketones (NEGATIVE) NEGATIVE Urine Blood (NEGATIVE) 2+ H Urine Nitrite (NEGATIVE) NEGATIVE Urine Bilirubin (NEGATIVE) NEGATIVE Urine Urobilinogen (0.2 - 1.0 mg/dL) 0.2 Ur Leukocyte Esterase (NEGATIVE) 3+ H Urine RBC (0 - 3 RBC/HPF) 4-10 Urine WBC (0 - 3 WBC/HPF) 21-50 H Ur Squamous Epith Cells (NONE SEEN /HPF) 0-5 Urine Bacteria (NONE SEEN /HPF) TRACE Urine Mucus (NONE SEEN /LPF) TRACE Microbiology: Date/Time Procedure - Status Source Growth 08/20 1457 Blood Culture - ORD BLOOD 08/20 1457 Blood Culture - ORD BLOOD 08/19 1709 Blood Culture - ORD BLOOD 08/19 1709 Blood Culture - ORD BLOOD 08/19 1622 Urine Culture - RES URINE Laboratory Tests: 08/19 08/19 08/19 08/19 08/19 1338 1335 1233 1115 1115 Chemistry Sodium (134 - 147 mEq/L) 130 L Potassium (3.4 - 5.0 mEq/L) 3.6 Chloride (100 - 108 mEq/L) 107 Carbon Dioxide (21 - 33 mEq/l) 22 Anion Gap (0 - 20) 5 BUN (7 - 18 mg/dL) 39 H Creatinine (0.6 - 1.3 mg/dL) 1.1 Glomerular Filtr Rate (90 - 95) 77.8 L Glucose (70 - 110 mg/dL) 315 H POC Glucose (70 - 110 MG/DL) 340 H 363 H 326 H Calcium (8.0 - 10.5 mg/dL) 7.6 L Phosphorus (2.5 - 4.9 MG/DL) 2.2 L Magnesium (1.80 - 2.40 mg/dL) 2.06 B-Natriuretic Peptide (0 - 100 PG/ML) 96.0 Albumin (3.4 - 5.0 g/dL) 1.50 L 08/19 08/19 08/19 08/19 0805 0737 0737 0445 Chemistry Sodium (134 - 147 mEq/L) 130 L 130 L Potassium (3.4 - 5.0 mEq/L) 3.3 L 3.0 L Chloride (100 - 108 mEq/L) 103 102 Carbon Dioxide (21 - 33 mEq/l) 20 L 22 Anion Gap (0 - 20) 10 10 BUN (7 - 18 mg/dL) 42 H 43 H Creatinine (0.6 - 1.3 mg/dL) 1.2 1.3 Glomerular Filtr Rate (90 - 95) 70.1 L 63.7 L Glucose (70 - 110 mg/dL) 322 H 359 H POC Glucose (70 - 110 MG/DL) 292 H Calcium (8.0 - 10.5 mg/dL) 8.2 7.7 L Phosphorus (2.5 - 4.9 MG/DL) 2.6 2.9 Magnesium (1.80 - 2.40 mg/dL) 2.13 2.13 Iron (35 - 150 mcg/dL) 8 L TIBC (260 - 445 mcg/dL) 148 L % Saturation (14 - 34 %) 5.4 L Unsat Iron Binding (mcg/dL) 140 Ferritin (23.9 - 336.2 ng/mL) 2429.2 H Total Bilirubin (0.0 - 1.0 mg/dL) 0.60 AST (15 - 37 IUnit/L) 27 ALT (30 - 65 IUnit/L) 13 L Total Alk Phosphatase (20 - 125 IUnit/L) 150 H Total Protein (6.4 - 8.2 g/dL) 5.6 L Albumin (3.4 - 5.0 g/dL) 1.60 L 1.50 L Vitamin B12 (193 - 986 pg/mL) 5883 H Folate (3.1 - 17.5 ng/mL) 9.5 08/19 08/19 08/19 08/19 0340 0332 0330 0101 Chemistry POC Glucose (70 - 110 MG/DL) 332 H 296 H Hemoglobin A1c (4.8 - 6.0 %A1C) > 14.0 H Ionized Calcium Mitzi (1.09 - 1.30 MMOL/L) 1.07 L Hematology WBC (4.5 - 11.0 x10 3/uL) 21.3 H RBC (4.00 - 5.60 x10 6/uL) 2.80 L Hgb (12.5 - 16.9 g/dL) 7.6 L Hct (37.5 - 50.7 %) 22.3 L MCV (81.0 - 99.0 fL) 79.6 L MCH (27.0 - 33.0 pg) 27.1 MCHC (33.0 - 37.0 g/dL) 34.1 RDW (11.5 - 14.5 %) 14.0 Plt Count (150 - 400 x10 3/uL) 227 MPV (7.0 - 9.0 fL) 9.9 H Neut % (Auto) (56.0 - 77.0 %) 89.9 H Lymph % (Auto) (14.0 - 32.0 %) 4.3 L Boundary % (Auto) (4.8 - 9.0 %) 3.1 L Eos % (Auto) (0.3 - 3.7 %) 0.0 L Baso % (Auto) (0.0 - 2.0 %) 0.3 Neut # (Auto) (2.0 - 7.6 x10 3/uL) 19.17 H Lymph # (Auto) (1.0 - 3.8 x10 3/uL) 0.91 L Boundary # (Auto) (0.1 - 0.8 x10 3/uL) 0.67 Eos # (Auto) (0.0 - 0.2 x10 3/uL) 0.01 Baso # (Auto) (0.0 - 0.2 x10 3/uL) 0.07 Abs Immat Gran (auto) (0.00 - 0.03 x10 3/uL) 0. 51 H Add Manual Diff NO Immature Gran % (0.0 - 2.0 %) 2.4 H Nucleated RBC % (0 - 0 %) 0.0 Nucleated RBCs # (Man) (0.0 - 0.1 x10 3/uL) 0.0 0 08/18 08/18 08/18 08/18 2246 2157 1854 1653 Chemistry Sodium (134 - 147 mEq/L) 129 L Potassium (3.4 - 5.0 mEq/L) 3.3 L Chloride (100 - 108 mEq/L) 102 Carbon Dioxide (21 - 33 mEq/l) 20 L Anion Gap (0 - 20) 10 BUN (7 - 18 mg/dL) 44 H Creatinine (0.6 - 1.3 mg/dL) 1.3 Glomerular Filtr Rate (90 - 95) 63.7 L Glucose (70 - 110 mg/dL) 296 H POC Glucose (70 - 110 MG/DL) 265 H 226 H 223 H Calcium (8.0 - 10.5 mg/dL) 7.7 L Phosphorus (2.5 - 4.9 MG/DL) 2.8 Magnesium (1.80 - 2.40 mg/dL) 2.13 Albumin (3.4 - 5.0 g/dL) 1.70 L Microbiology: Date/Time Procedure - Status Source Growth 08/19 121 Wound Culture - RES ABSCESS 08/19 1210 Anaerobic Culture - RES ABSCESS 08/19 1209 Gram Stain - RES ABSCESS Recent Impressions: ULTRASOUND - DUP LE Super[employer] UNI/LTD 08/19 0950 Report Impression - Status: SIGNED Entered: 08/19/2022 1056 IMPRESSION: No sonographic evidence for flow-limiting stenos is in the right lower extremity arterial system. Impression By: [email or web address] - Abraham Ross M.D. Laboratory Tests: 08/18 08/18 08/18 08/18 08/18 1430 1430 1404 1309 1203 Chemistry Sodium (134 - 147 mEq/L) 131 L Potassium (3.4 - 5.0 mEq/L) 3.4 Chloride (100 - 108 mEq/L) 101 Carbon Dioxide (21 - 33 mEq/l) 24 Anion Gap (0 - 20) 9 BUN (7 - 18 mg/dL) 58 H Creatinine (0.6 - 1.3 mg/dL) 1.4 H Glomerular Filtr Rate (90 - 95) 58.3 L Glucose (70 - 110 mg/dL) 207 H POC Glucose (70 - 110 MG/DL) 195 H 213 H 201 H Calcium (8.0 - 10.5 mg/dL) 7.8 L Phosphorus (2.5 - 4.9 MG/DL) 2.2 L Magnesium (1.80 - 2.40 mg/dL) 2.09 Albumin (3.4 - 5.0 g/dL) 1.60 L Triglycerides (40 - 150 mg/dL) 161 H Cholesterol (<200 mg/dL) 90 LDL Cholesterol Measurd (0 - 100 mg/dL) 33.0 HDL Cholesterol (32 - 72 mg/dL) < 20.0 L Cholesterol/HDL Ratio (3.43 - 4.97 4.00 RATIO) TSH (0.42 - 5.47) 0.96 Free T4 (0.77 - 1.61 ng/dL) 0.7 L 08/18 08/18 08/18 08/18 08/18 1107 1004 0900 0823 0549 Chemistry POC Glucose (70 - 110 MG/DL) 223 H 304 H 405 H 449 H Hemoglobin A1c (4.8 - 6.0 %A1C) 13.4 H 08/18 08/18 08/18 0549 0305 0207 Blood Gas Puncture Site R Radial O2 Saturation (90 - 100 %) 97.9 ABG pH (7.35 - 7.45) 7.309 L ABG pCO2 (35.0 - 45 mmHg) 22.3 *L ABG pO2 (80 - 100.0 mmHg) 108.0 H ABG PO2/FiO2 Ratio (mm/Hg) 514.28 ABG HCO3 (22.0 - 26.0 MMOL/L) 11.2 *L ABG Total CO2 11.9 ABG Base Excess (-4.0 - 4.0 MMOL/L) -15.1 L Neto Test Positive O2 Delivery Device Room Air FiO2 (%) 21 Chemistry Sodium (134 - 147 mEq/L) 121 *L Potassium (3.4 - 5.0 mEq/L) 4.1 Chloride (100 - 108 mEq/L) 90 L Carbon Dioxide (21 - 33 mEq/l) 15 L Anion Gap (0 - 20) 20 BUN (7 - 18 mg/dL) 62 H Creatinine (0.6 - 1.3 mg/dL) 1.7 H Glomerular Filtr Rate (90 - 95) 46.2 L Glucose (70 - 110 mg/dL) 692 *H Calcium (8.0 - 10.5 mg/dL) 7.5 L Phosphorus (2.5 - 4.9 MG/DL) 4.8 Magnesium (1.80 - 2.40 mg/dL) 2.34 Albumin (3.4 - 5.0 g/dL) 1.60 L Serology Influenza Type A (PCR) (Negative) Negative Influenza Type B (PCR) (Negative) Negative Toxicology Acetone, Quant (Neg - <20 mg/dL) Large - 80-100 mg/dL 08/18 08/18 08/18 0205 0203 0203 Chemistry Sodium (134 - 147 mEq/L) 115 *L Potassium (3.4 - 5.0 mEq/L) 4.4 Chloride (100 - 108 mEq/L) 84 L Carbon Dioxide (21 - 33 mEq/l) 14 L Anion Gap (0 - 20) 21 H BUN (7 - 18 mg/dL) 60 H Creatinine (0.6 - 1.3 mg/dL) 1.9 H Glomerular Filtr Rate (90 - 95) 40.4 L Glucose (70 - 110 mg/dL) 709 *H Lactic Acid (0.4 - 1.9 mmol/L) 1.2 Calcium (8.0 - 10.5 mg/dL) 8.5 Total Bilirubin (0.0 - 1.0 mg/dL) 0.40 Direct Bilirubin (0.0 - 0.30 MG/DL) 0.20 Indirect Bilirubin (MG/DL) 0.20 AST (15 - 37 IUnit/L) 14 L ALT (30 - 65 IUnit/L) 10 L Total Alk Phosphatase (20 - 125 IUnit/L) 157 H Troponin I High Sens (0 - 54 ng/L) 4 Total Protein (6.4 - 8.2 g/dL) 6.4 Albumin (3.4 - 5.0 g/dL) 1.80 L Lipase (13 - 57 U/L) 24 Hematology WBC (4.5 - 11.0 x10 3/uL) 26.5 H RBC (4.00 - 5.60 x10 6/uL) 3.36 L Hgb (12.5 - 16.9 g/dL) 9.0 L Hct (37.5 - 50.7 %) 28.3 L MCV (81.0 - 99.0 fL) 84.2 MCH (27.0 - 33.0 pg) 26.8 L MCHC (33.0 - 37.0 g/dL) 31.8 L RDW (11.5 - 14.5 %) 14.5 Plt Count (150 - 400 x10 3/uL) 355 MPV (7.0 - 9.0 fL) 9.9 H Add Manual Diff YES Seg Neutrophils % (37 - 69 %) 70.0 H Band Neutrophils % (0.0 - 10.0 %) 12.7 H Lymphocytes % (Manual) (23 - 55 %) 3.7 L Monocytes % (Manual) (0 - 10 %) 9.1 Metamyelocytes (0.0 - 0.0 %) 2.7 H Myelocytes (0.0 - 0.0 %) 0.9 H Promyelocytes (0 - 0 %) 0.9 H Platelet Estimate (ADEQUATE THOUSAND) Adequate Plt Morphology Comment NORMAL Polychromasia 3+ Poikilocytosis 3+ Anisocytosis 1+ Macrocytosis 1+ Serology SARS-CoV-2 Ag (Rapid) (Negative) Negative Toxicology Salicylates (0.0 - 20.0 mg/dL) 5.6 Microbiology: Date/Time Procedure - Status Source Growth 08/18 914 Wound Culture - ORD FOOT 08/18 206 Wound Culture - RECD FOOT 08/18 206 Group A Streptococcus Screen (VERONICA) - COMP THROAT 08/18 206 Streptococcus Culture - COMP THROAT 08/18 202 Blood Culture - RES BLOOD 08/18 202 Blood Culture Gram Stain - RES BLOOD 08/18 202 Blood Culture - RES BLOOD 08/18 202 Blood Culture Gram Stain - RES BLOOD Recent Impressions: RADIOLOGY - XR CHEST 2 V 08/18 0201 Report Impression - Status: SIGNED Entered: 08/18/2022 0317 IMPRESSION: Ill-defined somewhat nodular opacity measuring 3 .2 cm laterally in the right mid lung suspicious for rounded pneumo ro given provided history, but underlying neoplasm can not be excl uded. Followup radiographs are recommended after appropriate tr eatment in order to document complete resolution and exclude an unde rlying process or neoplasm. Impression By: [email or web address] - Dom Adams M.D. RADIOLOGY - XR FOOT 3 + V RT 08/18 0238 Report Impression - Status: SIGNED Entered: 08/18/2022 0358 IMPRESSION: No acute osseous findings. No convincing evidenc e for osteomyelitis. MRI is more sensitive for detecti ng osteomyelitis. Impression By: [email or web address] - Jay Ladd M.D. CAT SCAN - CT ABD PELVIS W/CONT 08/18 033 Report Impression - Status: SIGNED Entered: 08/18/2022 0589 IMPRESSION: 3.3 cm hypodensity in the left posterior prostat e or seminal vesicle. This could represent an abscess. Contra st-enhanced MRI of the pelvis would be helpful for further evaluati on. No acute intra-abdominal findings otherwise. Impression By: Ankur - Jay Ladd M.D. CAT SCAN - CT LOWER EXTRM W/O C RT 08/18 0645 Report Impression - Status: SIGNED Entered: 08/18/2022826 IMPRESSION: Extensive soft tissue edema with mottled gas in the subcutaneous and intramuscular compartments of the foot abhishek tible with gas-forming infection. Disease extends into the visualized distal leg. Impression By: Jamel Dorantes M.D. 1. Diabetes mellitus type 2 uncontrolled with co mplications. 2. DKA 3. Cellulitis and gangrene of the right foot. St atus post BKA 4. Sepsis 5. Altered mental status 6. High LFTs Blood sugar 88-162 mg/dL. HbA1c 13.4% Adjust insulin dose. Wound care and IV antibiotics. S/P wound debridement. Electronically Signed by Braxton Chapin MD on 04/16 at 1513 RPT #:[id number] END OF REPORT 2022-09-02 14:20:00-00:00 [facility] Hospitalist Progress Note REPORT#:[id number] REPORT STATUS: Signed DATE:09/02/22 TIME: 1420 PATIENT: KARMA ROWLAND UNIT #: [id number] ROOM/BED: [place] [address] : 61 AGE: 56 SEX: M ATTEND: Mikayla Ramires MD ADM AUTHOR: Tessie Junior * ALL edits or amendments must be made on the [employer]/computer document * Subjective Chief complaint: AMS and right foot infection. s/p extensive debridement. s/p BKA. pain controlled Review of Systems All systems rev neg: except as noted Objective General VS/I O: Vital Signs: Date Time Temp Pulse Resp B/P B/P Pulse O2 O2 F low FiO2 Mean Ox Delivery Rate 09/02 1244 79 18 149/70 100 Nasal 2 cannula 09/02 0904 81 152/70 95 09/02 0520 97.5 79 17 132/65 0.0 98 Room air 09/02 0500 80 131/63 90 97 09/02 0400 81 10 128/61 88 97 09/02 0300 84 129/64 90 94 09/02 0200 83 125/58 84 89 09/02 0100 82 10 151/70 100 95 09/02 0000 88 11 147/73 104 94 09/01 2340 98.2 83 19 127/69 0.0 95 Room air 09/01 2200 84 133/65 90 100 09/01 2100 96 18 168/80 115 96 09/01 2001 98.6 85 15 141/70 93 98 09/01 2000 85 20 135/64 92 96 09/01 1900 85 20 164/75 108 09/01 1800 89 15 171/82 118 09/01 1745 86 14 156/75 108 09/01 1500 85 12 158/76 109 98 24 hour I O ending at 0700: 09/02 0700 09/01 1900 Intake Total 240 Output Total 750 1325 Balance -750 -1085 Intake, Oral 240 Output, Urine 750 1325 PATIENT WEIGHT: Weight (lb): 154 Weight (oz): 5.18 Weight (kg): 70.000 Medications: Active Meds + DC'd Last 24 Hrs Fentanyl Citrate (SUBLIMAZE) 0 .STK-MED ONE IV ( DC) Midazolam HCl (VERSED) 0 .STK-MED ONE IV (DC) Dextrose/Water (DEXTROSE 10% IN WATER) 250 ML .S TK-MED ONE IV (DC) Benzocaine/Butamben/Tetracaine HCl (CETACAINE) 0 .STK-MED ONE MM (DC) Fentanyl Citrate (SUBLIMAZE) 0 .STK-MED ONE IV ( DC) Midazolam HCl (VERSED) 0 .STK-MED ONE IV (DC) Acetaminophen (TYLENOL) 0 .STK-MED ONE PO (DC) Benzocaine/Butamben/Tetracaine HCl (CETACAINE) 0 .STK-MED ONE MM (DC) Sodium Chloride (SODIUM CHLORIDE) 10 ML BID IV Benzocaine/Butamben/Tetracaine HCl (CETACAINE) 1 APPLIC ASDIR PRN MM ( CKD) Flumazenil (ROMAZICON) 0.2 MG ASDIR PRN IV Midazolam HCl (VERSED) 2 MG ASDIR PRN IV Naloxone HCl (NARCAN) 0.4 MG ASDIR PRN IV Vancomycin HCl (VANCOMYCIN HCL) 1,000 MG Q24H IV Sodium Chloride (SODIUM CHLORIDE 0.9%) 250 ML Sodium Chloride (SODIUM CHLORIDE) 10 ML ASDIR NV N IV Cefepime HCl (MAXIPIME) 1 GM Q6H IV Sodium Chloride (SODIUM CHLORIDE) 10 ML Miscellaneous Information (VANCOMYCIN PHARMACY T O DOSE) 1 EACH ASDIR IV (CKD) Hydralazine HCl (APRESOLINE) 10 MG Q6H PRN PRN IV Insulin Glargine (Lantus/Semglee) 15 UNIT BEDTIM E SUBQ Insulin Human Lispro (HUMALOG) 5 UNIT AC SUBQ Lidocaine (LIDODERM) 1 PATCH DAILY TOPICAL Hydromorphone HCl (DILAUDID) 1 MG Q3H PRN PRN IV Hydromorphone HCl (DILAUDID) 0.5 MG Q3H PRN PRN IV Lorazepam (ATIVAN) 1 MG ONCE PRN IV Sodium Chloride (SODIUM CHLORIDE) 0 ASDIR PRN IV Insulin Human Lispro (HUMALOG) 0 AC HS SUBQ Dextrose/Water (DEXTROSE 10% IN WATER) 125 ML DIR PRN IV (CKD) Dextrose/Water (DEXTROSE 10% IN WATER) 250 ML DIR PRN IV (CKD) Glucagon (GLUCAGON) 1 MG ASDIR PRN IM Dextrose/Water (Dextrose 10% 1,000 mL) 1,000 ML ASDIR IV Acetaminophen (TYLENOL) 650 MG Q6H PRN PRN PO Bisacodyl (DULCOLAX) 10 MG DAILY PRN PRN RECTAL Docusate Sodium (COLACE) 100 MG Q12H PRN PRN PO Ondansetron HCl (ZOFRAN) 4 MG Q6H PRN PRN IV Heparin Sodium (HEPARIN 5000 UNITS/ML) 5,000 UNI T Q8HR SUBQ Physical Exam Head/Eyes: normocephalic ENT: moist mucosal membranes Neck: no JVD Cardiovascular: regular rate rhythm, no heave Respiratory: aerating well, clear to auscultatio n, symmetric expansion, no distress Abdomen: non-tender, normal bowel sounds, soft, no distention Genitourinary: no bladder distention Extremities: R foot in dressing 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 X 3, 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 Considered stroke alert: no Skin: no rash Psychiatry: normal affect, normal judgment/insig ht, normal mood Results Findings/Data: Laboratory Tests 09/02 09/02 09/02 09/02 09/02 1048 1011 1009 0629 0430 Chemistry Sodium (134 - 147 mEq/L) 134 Potassium (3.4 - 5.0 mEq/L) 5.0 Chloride (100 - 108 mEq/L) 111 H Carbon Dioxide (21 - 33 mEq/l) 21 Anion Gap (0 - 20) 7 BUN (7 - 18 mg/dL) 26 H Creatinine (0.6 - 1.3 mg/dL) 1.2 Glomerular Filtr Rate (90 - 95) 70.1 L Glucose (70 - 110 mg/dL) 88 POC Glucose (70 - 110 MG/DL) 162 H 62 L 63 L 77 Calcium (8.0 - 10.5 mg/dL) 7.4 L 09/01 09/01 1936 1704 Chemistry POC Glucose (70 - 110 MG/DL) 91 127 H Diagnosis, Assessment Plan Free Text DxA P Notes Free text DxA P notes: DKA DM 2, poorly controlled severe gas gangrene, right foot/necrotizing fasc itis - s/p BKA MRSA bacteremia ERIKA severe hyponatremia likely due to combination of severe hyperglycemia and dehydration from DKA sepsis due to foot infection DM neuropathy HTN anemia, acute due to blood loss left calf hematoma prostatic abscess with Citrobacter and enterococ cus Plans: - admit to ICU - continue IV fluids aggressively - monitor lytes and AG - IV insulin drip for now until gap closes - endo eval - keep on Vancomycin and Zosyn - podiatry eval - d.w Wojciceh Hernandez - likely will need debridement - MRI of foot ordered - endo eval for management of DM. - HgbA1c of 13.4 - Urology consulted for hypodensity in prostate - ? abscess, not likely. not much symptoms - lovenox for VTE - check iron panel, TSH - fall precautions - not much pain needs likely due to neuropathy 08/19/2022 - blood cultures showing MRSA - Echo ordered - continue Vancomycin/Clinda and Meropenem. Id following - podiatry planning for I D today. Surgery on s tandby if needed to further debride his lower leg vs amputation. - WBC improving - will type and cross for blood and transfuse i f less than 7 gms - d.w at bedside - patient and is aware that he may require amputation if his tissues are non viable - remains on Insulin drip. blood sugars in the 200-300 range. AG has closed. endocrine is following. - keep in ICU 08/20/2022 - s/p extensive I D of right foot. - tissue cx showing MRSA - follow echo results - WBC remains elevated - continue IV antibiotics - MRI of pelvis pending to eval prostate lesion - MRI of foot pending to eval for osteo. - wean off insulin drip. Subq insulin and slidi ng scale. 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 will likely nee d wound vac at some point - off insulin drip - tolerating diet. d/c IV fluids - pain controlled - awaiting MRI of his foot and pelvis - fall precautions - transfer to floor 08/22/2022 - continue Vanco and Clinda IV - pulse lavage for wound care - pain control - blood sugars reasonably controlled - mobilize - fall precautions - follow hgb and transfuse as needed - awaiting floor transfer 08/23/2022 - transfuse blood for anemia. no overt blood lo ss - continue IV antibiotics - mobilize - pulse lavage to wound. ? wound vac - continue to monitor blood sugars - floor transfer - d/w 08/24/2022 - follow hgb and transfuse as needed - IV antibiotics - anesthesia consult for MRI - blood sugars ok - pulse lavage - await podiatry eval for wound care - ? wound vac - d.w at bedside 08/25/22 Continue abx (Dapto and Teflaro) as per ID Updated Urology on MRI resul ts, Dr. Bass will review images and discuss with family for possible prostate/seminal vesicle abs cess Cont wound care as per Podiatry, may have debrid ement today BP and BS well controlled K+ high, repeat level Hgb 7.3 stable Discussed with at bedside 08/26/2022 - hgb low. will transfuse 2 units - d.w Dr. Pedersen - patient has lost so much ti ssues in his foot that his potential for wound closure and usabilit y of his foot is poor. Recommendations made to proceed with BKA - continue to monitor blood sugars - IV antibitoics - wound care - urology planning for aspiration of prostatic cyst seen on MRI. PSA normal - OOB 08/27/22 s/p transfusion planned for BKA IV antibiotics Wound care DM - managed with insulin DVT prophylaxis 08/28/2022 - noted left leg swelling and pain - patient on Heparin SQ for VTE. will order sta t venous US - planning for right BKA today - continue IV antibiotics per ID - follow blood sugars closely - will need PT/OT and possible rehab post surge ry - d/w at bedside 08/29/2022 - US showing possible hematoma in left calf. no DVT - s/p BKA - no phantom pain at this time - continue IV antibiotics - PT/OT. will need rehab - PM R eval - continue Meropenem and Daptomycin per ID - cultures from prostate noted - ok to transfer to floor - follow hgb and transfuse if hgb less than 7 g ms - Heparin SQ for VTE 08/30/22 s/p BKA. doing well IV antibiotics PT/ OT possible rehab monitor hb transfer to floor / IMCU 08/31/2022 S/p BKA doing okay pain is controlled IV antibiotic therapy PT OT Noted hemoglobin low at 6.8 will transfuse monit or PRBC Potassium was high as well give Kayexalate Recheck lab work later today discussed with tamika kendall. If stable overall in the nex t 24 hours can be transferred/downgraded to regular floor. DM control. 09/01/22 VSS on RA labs pending- hyperkalemia yesterday -s/p kayexa late X1 Continue with Vanc and Cefepine per ID Needs JIMENA prior to discharge Cardiology on board. Approved to rehab, can transfer after JIMENA and BM P 09/02/22 JIMENA today to r/o endocarditis, awaiting results- if (+), will need abx for 6 weeks endocarditis Continue with Vanc and Cefepine per ID, - throug h 09/24/22 PICC line pending Wound care as directed Glycemia control- Endo on board repeat AM labs C/w PT/OT plan to transfer to [facility] this afternoon at 1750 RPT #:[id number] END OF REPORT 2022-09-02 12:26:00-00:00 [facility] ([facility]) Podiatry Progress Note REPORT#:[id number] REPORT STATUS: Signed DATE:09/02/22 TIME: 1226 PATIENT: KARMA ROWLAND UNIT #: [id number] ROOM/BED: [place] [address] : 61 AGE: 56 SEX: M ATTEND: Mikayla Ramires MD ADM AUTHOR: Liam Pedersen DPM * ALL edits or amendments must be made on the [employer] document * Subjective Chief complaint: seen at bedside,. family memebers next to him denies having any pain foot covered and protected and offloaded drainage noted serosang. increased warmth Patient reports: no cough, no dizziness, no feve r, no heartburn Comments: also discussed with dr. Leroy pt getting EEG today Objective General VS: Last Documented: Result Date Time Pulse Ox 95 09/02 09 B/P 152/70 09/02 0904 Pulse 81 09/02 09 B/P Mean 0.0 09/02 0520 O2 Delivery Room air 09/02 0520 Temp 36.4 09/02 0520 Resp 17 09/02 0520 O2 Flow Rate 7 08/28 1222 PATIENT WEIGHT: Weight (lb): 154 Weight (oz): 5.18 Weight (kg): 70.000 Medications: Active Meds + DC'd Last 24 Hrs Fentanyl Citrate (SUBLIMAZE) 0 .STK-MED ONE .ROU TE (DC) Midazolam HCl (VERSED) 0 .STK-MED ONE .ROUTE (DC ) Dextrose/Water (DEXTROSE 10% IN WATER) 250 ML .S TK-MED ONE IV (DC) Benzocaine/Butamben/Tetracaine HCl (CETACAINE) 0 .STK-MED ONE MM (DC) Fentanyl Citrate (SUBLIMAZE) 0 .STK-MED ONE .ROU TE (DC) Midazolam HCl (VERSED) 0 .STK-MED ONE .ROUTE (DC ) Acetaminophen (TYLENOL) 0 .STK-MED ONE PO (DC) Benzocaine/Butamben/Tetracaine HCl (CETACAINE) 0 .STK-MED ONE MM (DC) Sodium Chloride (SODIUM CHLORIDE) 10 ML BID IV Benzocaine/Butamben/Tetracaine HCl (CETACAINE) 1 APPLIC ASDIR PRN MM ( CKD) Flumazenil (ROMAZICON) 0.2 MG ASDIR PRN IV Midazolam HCl (VERSED) 2 MG ASDIR PRN IV Naloxone HCl (NARCAN) 0.4 MG ASDIR PRN IV Vancomycin HCl (VANCOMYCIN HCL) 1,000 MG Q24H IV Sodium Chloride (SODIUM CHLORIDE 0.9%) 250 ML Sodium Chloride (SODIUM CHLORIDE) 10 ML ASDIR NV N IV Cefepime HCl (MAXIPIME) 1 GM Q6H IV Sodium Chloride (SODIUM CHLORIDE) 10 ML Miscellaneous Information (VANCOMYCIN PHARMACY T O DOSE) 1 EACH ASDIR IV (CKD) Hydralazine HCl (APRESOLINE) 10 MG Q6H PRN PRN I V Insulin Glargine (Lantus/Semglee) 15 UNIT BEDTIM E SUBQ Insulin Human Lispro (HUMALOG) 5 UNIT AC SUBQ Lidocaine (LIDODERM) 1 PATCH DAILY TOPICAL Hydromorphone HCl (DILAUDID) 1 MG Q3H PRN PRN IV Hydromorphone HCl (DILAUDID) 0.5 MG Q3H PRN PRN IV Lorazepam (ATIVAN) 1 MG ONCE PRN IV Sodium Chloride (SODIUM CHLORIDE) 0 ASDIR PRN IV Insulin Human Lispro (HUMALOG) 0 AC HS SUBQ Dextrose/Water (DEXTROSE 10% IN WATER) 125 ML DIR PRN IV (CKD) Dextrose/Water (DEXTROSE 10% IN WATER) 250 ML DIR PRN IV (CKD) Glucagon (GLUCAGON) 1 MG ASDIR PRN IM Dextrose/Water (Dextrose 10% 1,000 mL) 1,000 ML ASDIR IV Acetaminophen (TYLENOL) 650 MG Q6H PRN PRN PO Bisacodyl (DULCOLAX) 10 MG DAILY PRN PRN RECTAL Docusate Sodium (COLACE) 100 MG Q12H PRN PRN PO Ondansetron HCl (ZOFRAN) 4 MG Q6H PRN PRN IV Heparin Sodium (HEPARIN 5000 UNITS/ML) 5,000 UNI T Q8HR SUBQ I O: 24 hour I O ending at 0700: 0411 0700 04 1900 Intake Total 240 Output Total 750 1325 Balance -750 -1085 Intake, Oral 240 Output, Urine 750 1325 Dietitian nutrition assessment The data set between the solid lines has been im ported from the dietitian's assessment. BMI Calculated: 24.9 Nutrition related diagnosis: Overweight Nutrition diagnosis details: BMI 25-29.9 Nutrition problem: Increased nutrient needs Nutrition etiology: metabolic demand of wound , healing Nutrition signs and symptoms : recent BKA with need for , arginine and glutamine Nutrition prescription: 1) Recommend Cardiac ADA diet with 5 CHO/meal. 2) Supplement with Chinedu BID. Dietitian name: Judith Smith, DIET Assessment completed: 08/28/22 Physical Exam Wound/incision: Location: Right foot s/p BKA DP and PT pulses very weak left foot. Sensation is greatly decreased on the left foot . Left foot has no ulcers but has OA changes at a nkle with some chronic edema. LE vascular pulse assess: Nonpalpable R posterior tibi chasidy, Nonpalpable L posterior tibialis, Nonpalpable R dorsalis pedis, Nonpalpable L dorsalis pedis Considered stroke alert: no Diagnosis, Assessment Plan Free Text A P: Gas gangrene right foot s/p BKA Diabetes with peripheral neuropathy Minimal peripheral vascular diseese Sepsis DKA Edema and arthritis left ankle IV antibiotics Monitor leukocytosis NIAS: minimal PVD right 08/19 OR culture: MRSA blood cultures: MRSA dc lavage oralia wrap compression left ankle venous u/s left no dvt Electronically Signed by Liam Pedersen DPM on 0 09/08/22 at 210 RPT #:[id number] END OF REPORT 2022-09-02 10:35:00-00:[address] [facility] ([facility]) Cardiology Progress Note REPORT#:[id number] REPORT STATUS: Signed DATE:09/02/22 TIME: 1035 PATIENT: KRAMA ROWLAND UNIT #: [id number] ROOM[facility]BED: [facility] : 61 AGE: 56 SEX: M ATTEND: Mikayla Ramires MD ADM AUTHOR: Rohit Benitez CLAY MILLER * ALL edits or amendments must be made on the [employer]/computer document * Rohit Benitez 09/02/22 1035: Subjective Chief complaint: foot infection Free Text Subj Notes Free Text Subj Notes: Patient seen and evaluated. Plan for JIMENA today. No new cardiac complaint. Objective General VS/I O: 24 hour I O ending at 0700: 09/02 0700 09/01 1900 Intake Total 240 Output Total 750 1325 Balance -750 -1085 Intake, Oral 240 Output, Urine 750 1325 Vital Signs: Date Time Temp Pulse Resp B/P B/P Pulse O2 O2 F low FiO2 Mean Ox Delivery Rate 09/02 0904 81 152/70 95 09/02 0520 97.5 79 17 132/65 0.0 98 Room air 09/02 0500 80 131/63 90 97 09/02 0400 81 10 128/61 88 97 09/02 0300 84 129/64 90 94 09/02 0200 83 125/58 84 89 09/02 0100 82 10 151/70 100 95 09/02 0000 88 11 147/73 104 94 09/01 2340 98.2 83 19 127/69 0.0 95 Room air 09/01 2200 84 133/65 90 100 09/01 2100 96 18 168/80 115 96 09/01 2002 98.6 85 15 141/70 93 98 10 2000 85 20 135/64 92 96 10 1900 85 20 164/75 108 04/10 1800 89 15 171/82 118 04/10 1745 86 14 156/75 108 04/10 1500 85 12 158/76 109 98 04/10 1407 84 11 170/81 116 99 04/10 1300 85 16 99 04/10 1200 84 99 04/10 1105 97.9 86 15 141/67 0.0 99 04/10 1100 86 141/67 97 98 PATIENT WEIGHT: Weight (lb): 154 Weight (oz): 5.18 Weight (kg): 70.000 Medications: Active Meds + DC'd Last 24 Hrs Dextrose/Water (DEXTROSE 10% IN WATER) 250 ML .S TK-MED ONE IV (DC) Benzocaine/Butamben/Tetracaine HCl (CETACAINE) 0 .STK-MED ONE MM (DC) Fentanyl Citrate (SUBLIMAZE) 0 .STK-MED ONE .ROU TE (DC) Midazolam HCl (VERSED) 0 .STK-MED ONE .ROUTE (DC ) Acetaminophen (TYLENOL) 0 .STK-MED ONE PO (DC) Benzocaine/Butamben/Tetracaine HCl (CETACAINE) 0 .STK-MED ONE MM (DC) Sodium Chloride (SODIUM CHLORIDE) 10 ML BID IV Benzocaine/Butamben/Tetracaine HCl (CETACAINE) 1 APPLIC ASDIR PRN MM ( CKD) Flumazenil (ROMAZICON) 0.2 MG ASDIR PRN IV Midazolam HCl (VERSED) 2 MG ASDIR PRN IV Naloxone HCl (NARCAN) 0.4 MG ASDIR PRN IV Vancomycin HCl (VANCOMYCIN HCL) 1,000 MG Q24H IV Sodium Chloride (SODIUM CHLORIDE 0.9%) 250 ML Lidocaine HCl (LIDOCAINE 1% 5ML) 5 ML ONCE ONE L OCAL (DC) Sodium Chloride (SODIUM CHLORIDE) 10 ML ASDIR NV N IV Cefepime HCl (MAXIPIME) 1 GM Q6H IV Sodium Chloride (SODIUM CHLORIDE) 10 ML Miscellaneous Information (VANCOMYCIN PHARMACY T O DOSE) 1 EACH ASDIR IV (CKD) Hydralazine HCl (APRESOLINE) 10 MG Q6H PRN PRN I V Insulin Glargine (Lantus/Semglee) 15 UNIT BEDTIM E SUBQ Insulin Human Lispro (HUMALOG) 5 UNIT AC SUBQ Lidocaine (LIDODERM) 1 PATCH DAILY TOPICAL Hydromorphone HCl (DILAUDID) 1 MG Q3H PRN PRN IV Hydromorphone HCl (DILAUDID) 0.5 MG Q3H PRN PRN IV Lorazepam (ATIVAN) 1 MG ONCE PRN IV Sodium Chloride (SODIUM CHLORIDE) 0 ASDIR PRN IV Insulin Human Lispro (HUMALOG) 0 AC HS SUBQ Dextrose/Water (DEXTROSE 10% IN WATER) 125 ML DIR PRN IV (CKD) Dextrose/Water (DEXTROSE 10% IN WATER) 250 ML DIR PRN IV (CKD) Glucagon (GLUCAGON) 1 MG ASDIR PRN IM Dextrose/Water (Dextrose 10% 1,000 mL) 1,000 ML ASDIR IV Acetaminophen (TYLENOL) 650 MG Q6H PRN PRN PO Bisacodyl (DULCOLAX) 10 MG DAILY PRN PRN RECTAL Docusate Sodium (COLACE) 100 MG Q12H PRN PRN PO Ondansetron HCl (ZOFRAN) 4 MG Q6H PRN PRN IV Heparin Sodium (HEPARIN 5000 UNITS/ML) 5,000 UNI T Q8HR SUBQ Physical Exam General appearance: alert, awake, oriented Neck: no bruit/NL carotids, no JVD Cardiovascular: CV assessment: abnormal S1/S2, regular rate and rhythm, no ectopy Respiratory: clear to auscultation, no distress Lower extremity: LE assessment: edema 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 X 3 Considered stroke alert: no Wound/incision: Location: right bka Psychiatry: normal affect, normal judgment/insig ht, normal mood Results Findings/Data: Laboratory Tests 09/02 09/02 09/02 09/02 09/01 1011 1009 0629 0430 1936 Chemistry Sodium (134 - 147 mEq/L) 134 Potassium (3.4 - 5.0 mEq/L) 5.0 Chloride (100 - 108 mEq/L) 111 H Carbon Dioxide (21 - 33 mEq/l) 21 Anion Gap (0 - 20) 7 BUN (7 - 18 mg/dL) 26 H Creatinine (0.6 - 1.3 mg/dL) 1.2 Glomerular Filtr Rate (90 - 95) 70.1 L Glucose (70 - 110 mg/dL) 88 POC Glucose (70 - 110 MG/DL) 62 L 63 L 77 91 Calcium (8.0 - 10.5 mg/dL) 7.4 L 09/01 09/01 1704 1104 Chemistry POC Glucose (70 - 110 MG/DL) 127 H 118 H Diagnosis, Assessment Plan Free Text DxA P Notes Free Text DxA P Notes: Impression: 1. Preop eval/cardiac clearance 2. Infected right foot gas gangrene 3. DKA 4. Sepsis 5. Hypertension 6. Anemia Recommendation: Patient presented for evalua tion of altered mental status, weakness and elevated blood sugar. Diagnosed with DKA and seps is. 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 Known cardiac history of hypertensio n and hyperlipidemia. Denies prior history of CAD, CHF or arrhythmia. EKG abn ormal, NSR with anterior infarct. Vital signs stable. No prior cardiac wo rk-up. -Check echocardiogram -Monitor telemetry for arrhythmia -Monitor blood pressure trend -Wound care and IV antibiotic therapy -Supportive care 08/19: Patient doing better postop, blood pressur e control, currently in sinus rhythm, lower extremity artery Doppler negative for any significant PAD, continue current management from primary team an d podiatry service, continue monitor on telemetry for arrhythmia postop, supp ortive care, discussed with patient and family as well as RN, will follow. 08/21: Patient overall doing well, awake and irish rt today. Blood pressure well controlled. Currently in sinus rhythm to sinus t achycardia, will continue to monitor. Echocardiogram shows LVEF of 55 to 69%, no regional wall motion abnormalities, grade 1 diastolic dysfunction, an d mildly dilated LA. continue antibiotic therapy and wound care. Supportive ca re. Plan of care discussed with patient, RN and Dr. Parham. 08/22: No Significant changes from cardiac stand point. Vital signs stable. Telemetry monitoring reviewed, sinus rhythm to s inus tachycardia. We will continue monitor, sinus tachycardia likely relat ed to underlying infection. Continue wound care and antibiotic therapy. Supp ortive care. Plan of care discussed with patient, RN and Dr. Parham. 08/23: Stable cardiac status. Blood pressure and heart rate well controlled. Continue monitor telemetry. Continue wound care . Plan to transfer to floor. Supportive care. Plan of care discussed with lori hart RN and Dr. Parham. 08/24: Patient overall doing well, remains stabl e from cardiac standpoint. Blood pressure and heart rat e well controlled. No new events noted on telemetry monitoring. Remains in sinus rhythm by physical examination. Continue wound care. Supportive care. Plan of care discussed wi patient, RN and Dr. Parham. 08/25: Remain stable from cardiac standpoint. Bl ood pressure well controlled. Currently in sinus rhythm by physical examinatio n. Possible plan for another wound debridement today. Pain management and sup portive care. Plan of care discussed with patient, RN and Dr. Parham. 08/26: Patient remains in sinus rhythm. Blood pr essure well controlled. Plan for aspiration of prostatic cyst today. Plan for right BKA on . We will continue monitor patient postoperatively. C ontinue antibiotic therapy. Supportive care. Plan of care discussed with lori hart RN and Dr. Parham. 08/27: Patient doing well st atus post aspiration of prostatic abscess and TURP. Currently on continuous bladder irrigation. Hemo dynamically stable. Blood pressure and heart rate well controlled. Remains in normal sinus rhythm. Plan for right BKA tomorrow. Melia red from cardiac standpoint to proceed with planned surgery. Supportive care. Plan of care discussed with patient, RN and Dr. Parham. 08/28: Stable cardiac status. Plan for right BKA today. Continue antibiotic therapy and wound care. Will monitor patient pos toperatively for arrhythmia. Continue monitor telemetry. Pain management and supportive care. Plan of care discussed with RN and Dr. Parham. 08/29: Patient doing well, blood pressure controll ed, s/p right BKA, stable cardiac status, continue current management, nhan l follow. 09/01: Patient with ongoing bacteremia, ID recomm end JIMENA to rule out endocarditis. Continue antibiotic therapy and wo und care. Blood pressure and heart rate well controlled. Remains in normal si nus rhythm. Plan for JIMENA tomorrow, further recommendation will be based o n findings. Supportive care. Plan of care discussed with patient, RN and Dr. Parham. 09/02: Plan for JIMENA today to rule out endocarditi s. Vital signs stable. Currently in sinus rhythm by physical examinatio n. Discharge planning for rehab. Supportive care. Plan of care dis cussed with patient, RN and Dr. Parham. Gianni Parham 09/06/22 1631: Diagnosis, Assessment Plan Additional comments: Patient was seen and examined at bedside , agree with above assessment and plan as documented by nurse practitioner with modific ations. JIMENA negative for vegetation. Discussed with primary team and ID hal blum. Electronically Signed by Rohit Benitez NP on 0 09/02/22 at 2023 at 1637 RPT #:[id number] END OF REPORT 2022-09-02 06:18:00-00:[address] [facility] ([facility]) Rehab Progress Note REPORT#:[id number] REPORT STATUS: Signed DATE:09/02/22 TIME: 06 PATIENT: KARMA ROWLAND UNIT #: [id number] ROOM/BED: [place] [address] : 61 AGE: 56 SEX: M ATTEND: Mikayla Ramires MD ADM AUTHOR: Mj Vences MD * ALL edits or amendments must be made on the [employer] document * Subjective Chief complaint: Rehab [id number] Doing well In bed, NAD Patient going for JIMENA Urine is clear in room Denies MCBRIDE/N/V/D/CP 14 systems reviewed and neg. except that above. Objective General VS: Vital Signs: Date Time Temp Pulse Resp B/P B/P Pulse O2 O2 F low FiO2 Mean Ox Delivery Rate 09/02 0520 97.5 79 17 132/65 0.0 98 Room air 09/02 0500 80 131/63 90 97 09/02 0400 81 10 128/61 88 97 09/02 0300 84 129/64 90 94 09/02 0200 83 125/58 84 89 09/02 0100 82 10 151/70 100 95 09/02 0000 88 11 147/73 104 94 04 2340 98.2 83 19 127/69 0.0 95 Room air 09/01 2200 84 133/65 90 100 10 2100 96 18 168/80 115 96 04/10 2002 98.6 85 15 141/70 93 98 04/10 2000 85 20 135/64 92 96 04/10 1900 85 20 164/75 108 04/10 1800 89 15 171/82 118 04/10 1745 86 14 156/75 108 04/10 1500 85 12 158/76 109 98 04/10 1407 84 11 170/81 116 99 04/10 1300 85 16 99 04/10 1200 84 99 04/10 1105 97.9 86 15 141/67 0.0 99 04/10 1100 86 141/67 97 98 04/10 1000 83 13 128/67 92 97 04/10 0900 80 12 132/64 92 98 04/10 0826 80 94 09/01 0800 84 12 153/72 104 99 09/01 0708 98.4 83 12 129/63 0.0 99 09/01 0700 84 15 129/63 90 98 PATIENT WEIGHT: Weight (lb): 154 Weight (oz): 1.65 Weight (kg): 69.900 Medications: Active Meds + DC'd Last 24 Hrs Sodium Chloride (SODIUM CHLORIDE) 10 ML BID IV Benzocaine/Butamben/Tetracaine HCl (CETACAINE) 1 APPLIC ASDIR PRN MM ( CKD) Flumazenil (ROMAZICON) 0.2 MG ASDIR PRN IV Midazolam HCl (VERSED) 2 MG ASDIR PRN IV Naloxone HCl (NARCAN) 0.4 MG ASDIR PRN IV Vancomycin HCl (VANCOMYCIN HCL) 1,000 MG Q24H IV Sodium Chloride (SODIUM CHLORIDE 0.9%) 250 ML Lidocaine HCl (LIDOCAINE 1% 5ML) 5 ML ONCE ONE L OCAL (DC) Sodium Chloride (SODIUM CHLORIDE) 10 ML ASDIR NV N IV Cefepime HCl (MAXIPIME) 1 GM Q6H IV Sodium Chloride (SODIUM CHLORIDE) 10 ML Miscellaneous Information (VANCOMYCIN PHARMACY T O DOSE) 1 EACH ASDIR IV (CKD) Hydralazine HCl (APRESOLINE) 10 MG Q6H PRN PRN I V Insulin Glargine (Lantus/Semglee) 15 UNIT BEDTIM E SUBQ Insulin Human Lispro (HUMALOG) 5 UNIT AC SUBQ Lidocaine (LIDODERM) 1 PATCH DAILY TOPICAL Hydromorphone HCl (DILAUDID) 1 MG Q3H PRN PRN IV Hydromorphone HCl (DILAUDID) 0.5 MG Q3H PRN PRN IV Meropenem (MEROPENEM) 500 MG Q6H IV (DC) Sterile Water (WATER FOR INJECTION) 10 ML Daptomycin (CUBICIN 500MG) 700 MG Q24H IV (DC) Sodium Chloride (SODIUM CHLORIDE 0.9%) 50 ML Lorazepam (ATIVAN) 1 MG ONCE PRN IV Sodium Chloride (SODIUM CHLORIDE) 0 ASDIR PRN IV Insulin Human Lispro (HUMALOG) 0 AC HS SUBQ Dextrose/Water (DEXTROSE 10% IN WATER) 125 ML DIR PRN IV (CKD) Dextrose/Water (DEXTROSE 10% IN WATER) 250 ML DIR PRN IV (CKD) Glucagon (GLUCAGON) 1 MG ASDIR PRN IM Dextrose/Water (Dextrose 10% 1,000 mL) 1,000 ML ASDIR IV Acetaminophen (TYLENOL) 650 MG Q6H PRN PRN PO Bisacodyl (DULCOLAX) 10 MG DAILY PRN PRN RECTAL Docusate Sodium (COLACE) 100 MG Q12H PRN PRN PO Ondansetron HCl (ZOFRAN) 4 MG Q6H PRN PRN IV Heparin Sodium (HEPARIN 5000 UNITS/ML) 5,000 UNI T Q8HR SUBQ Physical Exam General appearance: alert, awake, no acute distr ess Psych: alert, normal affect, oriented x 3 HEENT: anicteric, mucosal membranes moist, pupil s reactive to light, sclera clear Neck: non-tender, supple, no JVD Cardiovascular: regular rate rhythm, S1/S2 Respiratory: aerating well, clear bilaterally, c lear to auscultation Abdomen: bowel sounds present, non-distended, so ft Skin: R BKA wrapped with kerlix and ORALIA, removed incision healing well, some small blisters on distal limb, no erythema. DSGi ngs replaced. Left foot/ankle wrapped Musculoskeletal - general: Musculoskeletal - general: MMT BUE 5/5, LLE 4/5, R hip 3-, R knee in nestor-tech orthotic 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 X 3, CNII-XII intact Results Findings/Data: Laboratory Tests: 09/02 09/01 09/01 09/01 09/01 0430 1936 1704 1104 0852 Chemistry Sodium (134 - 147 mEq/L) 134 Potassium (3.4 - 5.0 mEq/L) 5.0 Chloride (100 - 108 mEq/L) 111 H Carbon Dioxide (21 - 33 mEq/l) 21 Anion Gap (0 - 20) 7 BUN (7 - 18 mg/dL) 26 H Creatinine (0.6 - 1.3 mg/dL) 1.2 Glomerular Filtr Rate (90 - 95) 70.1 L Glucose (70 - 110 mg/dL) 88 POC Glucose (70 - 110 MG/DL) 91 127 H 118 H Calcium (8.0 - 10.5 mg/dL) 7.4 L Serology SARS-CoV-2 Ag (Rapid) (Negative) Negative 09/01 0704 Chemistry POC Glucose (70 - 110 MG/DL) 145 H Radiology data: Recent Impressions: ULTRASOUND - DUP VEIN UNI/LTD 08/28 0857 Report Impression - Status: SIGNED Entered: 08/28/2022 0978 IMPRESSION: 1. No evidence of venous thrombosis involving le ft lower extremity. 2. Approximately 8 x 2 x 1.3 cm complex fluid co llection along the left upper calf probably representing a smal l hematoma. Impression By: [email or web address] - Hakeem Soto RADIOLOGY - XR FLUOROSCOPY 0-60 MIN 08/28 1101 Report Impression - Status: SIGNED Entered: 08/28/2022 1120 IMPRESSION: Fluoroscopy dosage documentation. See also separ ate procedure notes. Impression By: [email or web address] - Bishop Atkins M.D. 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 Leroy Significant impairment in self-care, ADLs and fu nctional mobility Impaired mobility and gait Postoperative pain Diabetic polyneuropathy DKA, DM 2, poorly controlled Minimal PAD MRSA bacteremia/sepsis ERIKA Severe hyponatremia-resolved HTN Acute on chronic anemia requiring multiple trans fusions Left calf hematoma Edema and clinical arthritis left ankle Prostatic abscess 08/26: S/p transrectal ultrasound aspiration of ab scess and transurethral resection of prostate and unroofing of abscess Echo: EF 55-59%, grade 1 diastolic dysfunction Hypoalbuminemia Plan: -Continue PT and OT -Case management for safe discharge planning. -Decubitus prevention -Nutrition, monitor the patient's p.o. intake, a lbumin 1.3, check prealbumin, dietary consultation, protein supplements promot e healing -Strict fall and safety precaution -DVT prophylaxis-subcutaneous heparin -GI prophylaxis on Pepcid -Early mobilization-OOB to chair -Work on bed mobility, transfer training , ADLs, pre-gait and gait exercises as tolerable. -Increase endurance and strength -Pain management-patient requiring IV Dilaudid -Glycemic control as per endo-blood sugars much improved -Monitor labs-WBC trending down, hemoglo bin 9.1, s/p PRBC transfusions, sodium normal, creatinine 1.2, pota ssium elevating given Kayexalate, awaiting potassium level -Has received multiple units of PRBCs-serial H/H -ID requesting JIMENA to rule out endocarditis, con tinue ABX -Patient on CBI and urine is clear-DC CBI if oka y with -Edema and clinical arthritis left ankle-Lidoder m patch and Oralia wrap -NWB right BKA, continue Nestor -tech orthotic-incision healing well, some blisters on distal limb, no erythema or signs of infectio n, dressings reapplied -Right BKA amputee rehab -Excellent candidate for inpatient rehab -Patient and would like to stay here at [facility]. -Patient approved for IRF. -Awaiting results of JIMENA -Urine clear-asked RN to DC CBI if okay with -Preadmission screen completed. -COVID-negative -Repeat CBC Progress: Bed Mobility - Rolling: Minimal Assist ance Bed Mobility - Supine to Sit: Moderate Assistan ce Bed Mobility - Sit to Supine: Moderate Assistan ce Scooting: Moderate Assistance Sit to Stand: Dependent Static Sitting: Minimal Assistance Dynamic Sitting: Minimal Assistance Static Standing: Dependent Dynamic Standing: Not Tested Functional Exercises: SUPINE EXERCISES Total time was 34 minutes > 50% with patient per forming physical examination, discussing with patient and about JIMENA, gibbs sfer to rehab, rehab plan of care, goals, therapies, progress, medications, l abs. All questions answered Orders: Procedure Date/time Status CBC W/AUTO DIFF 09/02 622 Active Rehab attestation: . at 1118 RPT #:[id number] END OF REPORT 2022-09-01 18:12:00-00:00 [facility] ([facility]) Endocrinology Progress Note REPORT#:[id number] REPORT STATUS: Signed DATE:09/01/22 TIME: 1811 PATIENT: KARMA ROWLAND UNIT #: [id number] ROOM/BED: [place] [address] : 61 AGE: 56 SEX: M ATTEND: Mikayla Ramires MD ADM AUTHOR: Braxton Chapin MD * ALL edits or amendments must be made on the [employer]/computer document * Subjective Patient reports: no complaints Objective General VS: Last Documented: Result Date Time B/P 171/82 09/01 1800 B/P Mean 118 09/01 1800 Pulse 89 09/01 1800 Resp 15 09/01 1800 Pulse Ox 98 09/01 1500 Temp 36.6 09/01 1105 O2 Delivery Room air 08/31 1929 O2 Flow Rate 7 08/28 1222 PATIENT WEIGHT: Weight (lb): 154 Weight (oz): 1.65 Weight (kg): 69.900 Medications: Active Meds + DC'd Last 24 Hrs Sodium Chloride (SODIUM CHLORIDE) 10 ML BID IV Benzocaine/Butamben/Tetracaine HCl (CETACAINE) 1 APPLIC ASDIR PRN MM ( CKD) Flumazenil (ROMAZICON) 0.2 MG ASDIR PRN IV Midazolam HCl (VERSED) 2 MG ASDIR PRN IV Naloxone HCl (NARCAN) 0.4 MG ASDIR PRN IV Vancomycin HCl (VANCOMYCIN HCL) 1,000 MG Q24H IV Sodium Chloride (SODIUM CHLORIDE 0.9%) 250 ML Lidocaine HCl (LIDOCAINE 1% 5ML) 5 ML ONCE ONE L OCAL (DC) Sodium Chloride (SODIUM CHLORIDE) 10 ML ASDIR NV N IV Cefepime HCl (MAXIPIME) 1 GM Q6H IV Sodium Chloride (SODIUM CHLORIDE) 10 ML Miscellaneous Information (VANCOMYCIN PHARMACY T O DOSE) 1 EACH ASDIR IV (CKD) Hydralazine HCl (APRESOLINE) 10 MG Q6H PRN PRN I V Insulin Glargine (Lantus/Semglee) 15 UNIT BEDTIM E SUBQ Insulin Human Lispro (HUMALOG) 5 UNIT AC SUBQ Lidocaine (LIDODERM) 1 PATCH DAILY TOPICAL Hydromorphone HCl (DILAUDID) 1 MG Q3H PRN PRN IV Hydromorphone HCl (DILAUDID) 0.5 MG Q3H PRN PRN IV Meropenem (MEROPENEM) 500 MG Q6H IV (DC) Sterile Water (WATER FOR INJECTION) 10 ML Daptomycin (CUBICIN 500MG) 700 MG Q24H IV (DC) Sodium Chloride (SODIUM CHLORIDE 0.9%) 50 ML Lorazepam (ATIVAN) 1 MG ONCE PRN IV Sodium Chloride (SODIUM CHLORIDE) 0 ASDIR PRN IV Insulin Human Lispro (HUMALOG) 0 AC HS SUBQ Dextrose/Water (DEXTROSE 10% IN WATER) 125 ML DIR PRN IV (CKD) Dextrose/Water (DEXTROSE 10% IN WATER) 250 ML DIR PRN IV (CKD) Glucagon (GLUCAGON) 1 MG ASDIR PRN IM Dextrose/Water (Dextrose 10% 1,000 mL) 1,000 ML ASDIR IV Acetaminophen (TYLENOL) 650 MG Q6H PRN PRN PO Bisacodyl (DULCOLAX) 10 MG DAILY PRN PRN RECTAL Docusate Sodium (COLACE) 100 MG Q12H PRN PRN PO Ondansetron HCl (ZOFRAN) 4 MG Q6H PRN PRN IV Heparin Sodium (HEPARIN 5000 UNITS/ML) 5,000 UNI T Q8HR SUBQ Physical Exam General appearance: alert, awake Diagnosis, Assessment Plan Hospital course to date: Laboratory Tests: 09/01 09/01 09/01 09/01 09/01 1704 1104 0852 0704 0345 Chemistry POC Glucose (70 - 110 MG/DL) 127 H 118 H 145 H Total Creatine Kinase (46 - 171 79 Units/L) Serology SARS-CoV-2 Ag (Rapid) (Negative) Negative 08/31 191 Chemistry POC Glucose (70 - 110 MG/DL) 176 H Laboratory Tests: 08/31 08/31 08/31 08/31 08/30 1240 1203 0714 0642 1943 Chemistry Sodium (134 - 147 mEq/L) 136 Potassium (3.4 - 5.0 mEq/L) 5.4 H Chloride (100 - 108 mEq/L) 110 H Carbon Dioxide (21 - 33 mEq/l) 22 Anion Gap (0 - 20) 9 BUN (7 - 18 mg/dL) 29 H Creatinine (0.6 - 1.3 mg/dL) 1.2 Glomerular Filtr Rate (90 - 95) 70.1 L Glucose (70 - 110 mg/dL) 129 H POC Glucose (70 - 110 MG/DL) 76 44 L 110 140 H Calcium (8.0 - 10.5 mg/dL) 7.2 L Hematology WBC (4.5 - 11.0 x10 3/uL) 8.7 RBC (4.00 - 5.60 x10 6/uL) 2.50 L Hgb (12.5 - 16.9 g/dL) 6.9 L Hct (37.5 - 50.7 %) 21.7 L MCV (81.0 - 99.0 fL) 86.8 MCH (27.0 - 33.0 pg) 27.6 MCHC (33.0 - 37.0 g/dL) 31.8 L RDW (11.5 - 14.5 %) 14.3 Plt Count (150 - 400 x10 3/uL) 208 MPV (7.0 - 9.0 fL) 9.4 H Neut % (Auto) (56.0 - 77.0 %) 76.3 Lymph % (Auto) (14.0 - 32.0 %) 16.8 Boundary % (Auto) (4.8 - 9.0 %) 4.8 Eos % (Auto) (0.3 - 3.7 %) 1.6 Baso % (Auto) (0.0 - 2.0 %) 0.2 Neut # (Auto) (2.0 - 7.6 x10 3/uL) 6.63 Lymph # (Auto) (1.0 - 3.8 x10 3/uL) 1.46 Boundary # (Auto) (0.1 - 0.8 x10 3/uL) 0.42 Eos # (Auto) (0.0 - 0.2 x10 3/uL) 0.14 Baso # (Auto) (0.0 - 0.2 x10 3/uL) 0.02 Abs Immat Gran (auto) (0.00 - 0.03 0.03 x10 3/uL) Add Manual Diff NO Immature Gran % (0.0 - 2.0 %) 0.3 Nucleated RBC % (0 - 0 %) 0.0 Nucleated RBCs # (Man) (0.0 - 0.1 0.00 x10 3/uL) 08/30 1650 Chemistry POC Glucose (70 - 110 MG/DL) 109 Laboratory Tests: 08/30 1218 7769 4572 2010 Chemistry Sodium (134 - 147 mEq/L) 136 Potassium (3.4 - 5.0 mEq/L) 5.2 H Chloride (100 - 108 mEq/L) 109 H Carbon Dioxide (21 - 33 mEq/l) 23 Anion Gap (0 - 20) 9 BUN (7 - 18 mg/dL) 33 H Creatinine (0.6 - 1.3 mg/dL) 1.3 Glomerular Filtr Rate (90 - 95) 63.7 L Glucose (70 - 110 mg/dL) 65 L POC Glucose (70 - 110 MG/DL) 109 81 83 81 Calcium (8.0 - 10.5 mg/dL) 7.3 L Phosphorus (2.5 - 4.9 MG/DL) 4.6 Magnesium (1.80 - 2.40 mg/dL) 2.01 Hematology WBC (4.5 - 11.0 x10 3/uL) 12.6 H RBC (4.00 - 5.60 x10 6/uL) 2.55 L Hgb (12.5 - 16.9 g/dL) 7.2 L Hct (37.5 - 50.7 %) 22.7 L MCV (81.0 - 99.0 fL) 89.0 MCH (27.0 - 33.0 pg) 28.2 MCHC (33.0 - 37.0 g/dL) 31.7 L RDW (11.5 - 14.5 %) 14.5 Plt Count (150 - 400 x10 3/uL) 197 MPV (7.0 - 9.0 fL) 9.5 H Neut % (Auto) (56.0 - 77.0 %) 78.7 H Lymph % (Auto) (14.0 - 32.0 %) 13.4 L Boundary % (Auto) (4.8 - 9.0 %) 6.3 Eos % (Auto) (0.3 - 3.7 %) 0.8 Baso % (Auto) (0.0 - 2.0 %) 0.2 Neut # (Auto) (2.0 - 7.6 x10 3/uL) 9.96 H Lymph # (Auto) (1.0 - 3.8 x10 3/uL) 1.69 Boundary # (Auto) (0.1 - 0.8 x10 3/uL) 0.79 Eos # (Auto) (0.0 - 0.2 x10 3/uL) 0.10 Baso # (Auto) (0.0 - 0.2 x10 3/uL) 0.02 Abs Immat Gran (auto) (0.00 - 0.03 0.08 H x10 3/uL) Add Manual Diff NO Immature Gran % (0.0 - 2.0 %) 0.6 Nucleated RBC % (0 - 0 %) 0.0 Nucleated RBCs # (Man) (0.0 - 0.1 0.00 x10 3/uL) Laboratory Tests: 08/29 08/29 08/29 08/29 08/29 1655 1041 0912 0844 0513 Chemistry POC Glucose (70 - 110 MG/DL) 157 H 105 70 70 Prealbumin (16.0 - 40.0 mg/dL) < 5.0 L 08/29 Chemistry Sodium (134 - 147 mEq/L) 136 Potassium (3.4 - 5.0 mEq/L) 4.9 Chloride (100 - 108 mEq/L) 109 H Carbon Dioxide (21 - 33 mEq/l) 23 Anion Gap (0 - 20) 9 BUN (7 - 18 mg/dL) 31 H Creatinine (0.6 - 1.3 mg/dL) 1.5 H Glomerular Filtr Rate (90 - 95) 53.6 L Glucose (70 - 110 mg/dL) 90 POC Glucose (70 - 110 MG/DL) 145 H Calcium (8.0 - 10.5 mg/dL) 7.2 L Phosphorus (2.5 - 4.9 MG/DL) 5.2 H Magnesium (1.80 - 2.40 mg/dL) 1.91 Hematology WBC (4.5 - 11.0 x10 3/uL) 14.2 H RBC (4.00 - 5.60 x10 6/uL) 2.50 L Hgb (12.5 - 16.9 g/dL) 7.1 L Hct (37.5 - 50.7 %) 21.5 L MCV (81.0 - 99.0 fL) 86.0 MCH (27.0 - 33.0 pg) 28.4 MCHC (33.0 - 37.0 g/dL) 33.0 RDW (11.5 - 14.5 %) 14.6 H Plt Count (150 - 400 x10 3/uL) 212 MPV (7.0 - 9.0 fL) 9.2 H Neut % (Auto) (56.0 - 77.0 %) 83.2 H Lymph % (Auto) (14.0 - 32.0 %) 10.0 L Boundary % (Auto) (4.8 - 9.0 %) 5.6 Eos % (Auto) (0.3 - 3.7 %) 0.5 Baso % (Auto) (0.0 - 2.0 %) 0.1 Neut # (Auto) (2.0 - 7.6 x10 3/uL) 11.78 H Lymph # (Auto) (1.0 - 3.8 x10 3/uL) 1.42 Boundary # (Auto) (0.1 - 0.8 x10 3/uL) 0.79 Eos # (Auto) (0.0 - 0.2 x10 3/uL) 0.07 Baso # (Auto) (0.0 - 0.2 x10 3/uL) 0.02 Abs Immat Gran (auto) (0.00 - 0.03 x10 3/uL) 0. 08 H Add Manual Diff NO Immature Gran % (0.0 - 2.0 %) 0.6 Nucleated RBC % (0 - 0 %) 0.0 Nucleated RBCs # (Man) (0.0 - 0.1 x10 3/uL) 0.0 0 Laboratory Tests: 08/28 08/28 08/28 08/28 1709 1302 1218 0624 Chemistry POC Glucose (70 - 110 MG/DL) 103 206 H 185 H 18 0 H 08/28 08/27 08/27 0420 2050 1825 Chemistry Sodium (134 - 147 mEq/L) 137 136 Potassium (3.4 - 5.0 mEq/L) 5.0 5.1 H Chloride (100 - 108 mEq/L) 109 H 109 H Carbon Dioxide (21 - 33 mEq/l) 21 20 L Anion Gap (0 - 20) 12 12 BUN (7 - 18 mg/dL) 30 H 30 H Creatinine (0.6 - 1.3 mg/dL) 1.4 H 1.2 Glomerular Filtr Rate (90 - 95) 58.3 L 70.1 L Glucose (70 - 110 mg/dL) 167 H 161 H POC Glucose (70 - 110 MG/DL) 87 Calcium (8.0 - 10.5 mg/dL) 7.7 L 7.5 L Ionized Calcium Mitzi (1.09 - 1.30 MMOL/L) 1.12 Phosphorus (2.5 - 4.9 MG/DL) 4.8 Magnesium (1.80 - 2.40 mg/dL) 1.89 Total Bilirubin (0.0 - 1.0 mg/dL) 0.40 AST (15 - 37 IUnit/L) 17 ALT (30 - 65 IUnit/L) 9 L Total Alk Phosphatase (20 - 125 IUnit/L) 111 Total Protein (6.4 - 8.2 g/dL) 5.8 L Albumin (3.4 - 5.0 g/dL) 1.30 L Hematology WBC (4.5 - 11.0 x10 3/uL) 13.8 H RBC (4.00 - 5.60 x10 6/uL) 2.83 L Hgb (12.5 - 16.9 g/dL) 8.0 L Hct (37.5 - 50.7 %) 24.0 L MCV (81.0 - 99.0 fL) 84.8 MCH (27.0 - 33.0 pg) 28.3 MCHC (33.0 - 37.0 g/dL) 33.3 RDW (11.5 - 14.5 %) 14.6 H Plt Count (150 - 400 x10 3/uL) 244 MPV (7.0 - 9.0 fL) 9.2 H Neut % (Auto) (56.0 - 77.0 %) 86.7 H Lymph % (Auto) (14.0 - 32.0 %) 8.2 L Boundary % (Auto) (4.8 - 9.0 %) 4.1 L Eos % (Auto) (0.3 - 3.7 %) 0.4 Baso % (Auto) (0.0 - 2.0 %) 0.1 Neut # (Auto) (2.0 - 7.6 x10 3/uL) 11.92 H Lymph # (Auto) (1.0 - 3.8 x10 3/uL) 1.13 Boundary # (Auto) (0.1 - 0.8 x10 3/uL) 0.57 Eos # (Auto) (0.0 - 0.2 x10 3/uL) 0.05 Baso # (Auto) (0.0 - 0.2 x10 3/uL) 0.01 Abs Immat Gran (auto) (0.00 - 0.03 x10 3/uL) 0. 07 H Add Manual Diff NO Immature Gran % (0.0 - 2.0 %) 0.5 Nucleated RBC % (0 - 0 %) 0.0 Nucleated RBCs # (Man) (0.0 - 0.1 x10 3/uL) 0.0 0 Microbiology: Date/Time Procedure - Status Source Growth 08/29 1347 Blood Culture - RECD BLOOD 08/29 1347 Blood Culture - RECD BLOOD Recent Impressions: ULTRASOUND - DUP VEIN UNI/LTD 08/28 0857 Report Impression - Status: SIGNED Entered: 08/28/2022 0927 IMPRESSION: 1. No evidence of venous thrombosis involving le ft lower extremity. 2. Approximately 8 x 2 x 1.3 cm complex fluid co llection along the left upper calf probably representing a smal l hematoma. Impression By: [email or web address] - Hakeem Soto RADIOLOGY - XR FLUOROSCOPY 0-60 MIN 08/28 1101 Report Impression - Status: SIGNED Entered: 08/28/2022 1120 IMPRESSION: Fluoroscopy dosage documentation. See also separ ate procedure notes. Impression By: [email or web address] - Bishop Atkins M.D. Laboratory Tests: 08/27 08/27 08/27 08/27 1728 1147 0824 0533 Chemistry Sodium (134 - 147 mEq/L) 137 Potassium (3.4 - 5.0 mEq/L) 5.3 H Chloride (100 - 108 mEq/L) 110 H Carbon Dioxide (21 - 33 mEq/l) 20 L Anion Gap (0 - 20) 12 BUN (7 - 18 mg/dL) 33 H Creatinine (0.6 - 1.3 mg/dL) 1.2 Glomerular Filtr Rate (90 - 95) 70.1 L Glucose (70 - 110 mg/dL) 285 H POC Glucose (70 - 110 MG/DL) 148 H 244 H 294 H Calcium (8.0 - 10.5 mg/dL) 7.2 L Phosphorus (2.5 - 4.9 MG/DL) 5.4 H Magnesium (1.80 - 2.40 mg/dL) 1.94 Total Bilirubin (0.0 - 1.0 mg/dL) 0.40 AST (15 - 37 IUnit/L) 12 L ALT (30 - 65 IUnit/L) 9 L Total Alk Phosphatase (20 - 125 IUnit/L) 111 Total Protein (6.4 - 8.2 g/dL) 5.7 L Albumin (3.4 - 5.0 g/dL) 1.30 L 08/27 08/26 0418 2041 Chemistry POC Glucose (70 - 110 MG/DL) 148 H Ionized Calcium Mitzi (1.09 - 1.30 MMOL/L) 1.08 L Hematology WBC (4.5 - 11.0 x10 3/uL) 15.9 H RBC (4.00 - 5.60 x10 6/uL) 3.07 L Hgb (12.5 - 16.9 g/dL) 8.6 L Hct (37.5 - 50.7 %) 25.9 L MCV (81.0 - 99.0 fL) 84.4 MCH (27.0 - 33.0 pg) 28.0 MCHC (33.0 - 37.0 g/dL) 33.2 RDW (11.5 - 14.5 %) 14.6 H Plt Count (150 - 400 x10 3/uL) 250 MPV (7.0 - 9.0 fL) 9.8 H Neut % (Auto) (56.0 - 77.0 %) 88.7 H Lymph % (Auto) (14.0 - 32.0 %) 7.0 L Boundary % (Auto) (4.8 - 9.0 %) 3.3 L Eos % (Auto) (0.3 - 3.7 %) 0.3 Baso % (Auto) (0.0 - 2.0 %) 0.1 Neut # (Auto) (2.0 - 7.6 x10 3/uL) 14.14 H Lymph # (Auto) (1.0 - 3.8 x10 3/uL) 1.11 Boundary # (Auto) (0.1 - 0.8 x10 3/uL) 0.52 Eos # (Auto) (0.0 - 0.2 x10 3/uL) 0.04 Baso # (Auto) (0.0 - 0.2 x10 3/uL) 0.02 Abs Immat Gran (auto) (0.00 - 0.03 x10 3/uL) 0. 10 H Add Manual Diff NO Immature Gran % (0.0 - 2.0 %) 0.6 Nucleated RBC % (0 - 0 %) 0.0 Nucleated RBCs # (Man) (0.0 - 0.1 x10 3/uL) 0.0 0 Microbiology: Date/Time Procedure - Status Source Growth 08/26 2216 Wound Culture - RES ABSCESS GRAM NEGATIVE JAKOB 08/26 2216 Anaerobic Culture - RES ABSCESS 08/26 2216 Gram Stain - RES ABSCESS Laboratory Tests: 08/26 08/26 08/25 0906 0430 2007 Chemistry Sodium (134 - 147 mEq/L) 136 Potassium (3.4 - 5.0 mEq/L) 4.8 Chloride (100 - 108 mEq/L) 109 H Carbon Dioxide (21 - 33 mEq/l) 21 Anion Gap (0 - 20) 11 BUN (7 - 18 mg/dL) 32 H Creatinine (0.6 - 1.3 mg/dL) 1.1 Glomerular Filtr Rate (90 - 95) 77.8 L Glucose (70 - 110 mg/dL) 151 H POC Glucose (70 - 110 MG/DL) 163 H 113 H Calcium (8.0 - 10.5 mg/dL) 7.7 L Ionized Calcium Mitzi (1.09 - 1.30 MMOL/L) 1.11 Phosphorus (2.5 - 4.9 MG/DL) 4.6 Magnesium (1.80 - 2.40 mg/dL) 1.89 Total Bilirubin (0.0 - 1.0 mg/dL) 0.50 AST (15 - 37 IUnit/L) 19 ALT (30 - 65 IUnit/L) 11 L Total Alk Phosphatase (20 - 125 IUnit/L) 149 H Total Protein (6.4 - 8.2 g/dL) 5.5 L Albumin (3.4 - 5.0 g/dL) 1.30 L Hematology WBC (4.5 - 11.0 x10 3/uL) 17.7 H RBC (4.00 - 5.60 x10 6/uL) 2.44 L Hgb (12.5 - 16.9 g/dL) 6.7 L Hct (37.5 - 50.7 %) 20.4 L MCV (81.0 - 99.0 fL) 83.6 MCH (27.0 - 33.0 pg) 27.5 MCHC (33.0 - 37.0 g/dL) 32.8 L RDW (11.5 - 14.5 %) 14.7 H Plt Count (150 - 400 x10 3/uL) 253 MPV (7.0 - 9.0 fL) 9.9 H Neut % (Auto) (56.0 - 77.0 %) 87.5 H Lymph % (Auto) (14.0 - 32.0 %) 7.4 L Boundary % (Auto) (4.8 - 9.0 %) 3.9 L Eos % (Auto) (0.3 - 3.7 %) 0.5 Baso % (Auto) (0.0 - 2.0 %) 0.1 Neut # (Auto) (2.0 - 7.6 x10 3/uL) 15.49 H Lymph # (Auto) (1.0 - 3.8 x10 3/uL) 1.31 Boundary # (Auto) (0.1 - 0.8 x10 3/uL) 0.69 Eos # (Auto) (0.0 - 0.2 x10 3/uL) 0.08 Baso # (Auto) (0.0 - 0.2 x10 3/uL) 0.01 Abs Immat Gran (auto) (0.00 - 0.03 x10 3/uL) 0. 11 H Add Manual Diff NO Immature Gran % (0.0 - 2.0 %) 0.6 Nucleated RBC % (0 - 0 %) 0.0 Nucleated RBCs # (Man) (0.0 - 0.1 x10 3/uL) 0.0 0 Laboratory Tests: 08/25 08/25 08/25 08/25 1723 1111 1044 1044 Chemistry Potassium (3.4 - 5.0 mEq/L) 4.5 POC Glucose (70 - 110 MG/DL) 132 H 143 H Total Creatine Kinase (46 - 171 Units/L) 17 L Urines Urine Color (YEL/STRAW) YELLOW Urine Appearance (CLEAR) TURBID H Urine pH (5.0 - 7.0) 5.0 Ur Specific [place] (1.005 - 1.030) 1.012 Urine Protein (NEGATIVE) 2+ H Urine Glucose (UA) (NEGATIVE) NEGATIVE Urine Ketones (NEGATIVE) NEGATIVE Urine Blood (NEGATIVE) 2+ H Urine Nitrite (NEGATIVE) NEGATIVE Urine Bilirubin (NEGATIVE) NEGATIVE Urine Urobilinogen (0.2 - 1.0 mg/dL) 0.2 Ur Leukocyte Esterase (NEGATIVE) 3+ H Urine RBC (0 - 3 RBC/HPF) 21-50 Urine WBC (0 - 3 WBC/HPF) >50 H Ur Squamous Epith Cells (NONE SEEN /HPF) NONE S EEN Ur Transition Epith Cell (NONE SEEN /HPF) 3+ H Urine Bacteria (NONE SEEN /HPF) TRACE Urine Mucus (NONE SEEN /LPF) TRACE 08/25 08/25 08/24 0750 0744 2130 Chemistry Sodium (134 - 147 mEq/L) 135 Potassium (3.4 - 5.0 mEq/L) 5.4 H Chloride (100 - 108 mEq/L) 110 H Carbon Dioxide (21 - 33 mEq/l) 19 L Anion Gap (0 - 20) 11 BUN (7 - 18 mg/dL) 25 H Creatinine (0.6 - 1.3 mg/dL) 1.1 Glomerular Filtr Rate (90 - 95) 77.8 L Glucose (70 - 110 mg/dL) 162 H POC Glucose (70 - 110 MG/DL) 166 H 140 H Calcium (8.0 - 10.5 mg/dL) 7.3 L Ionized Calcium Mitzi (1.09 - 1.30 MMOL/L) 0.96 L Phosphorus (2.5 - 4.9 MG/DL) 4.5 Magnesium (1.80 - 2.40 mg/dL) 1.88 Total Bilirubin (0.0 - 1.0 mg/dL) 0.50 AST (15 - 37 IUnit/L) 40 H ALT (30 - 65 IUnit/L) 21 L Total Alk Phosphatase (20 - 125 IUnit/L) 159 H Total Protein (6.4 - 8.2 g/dL) 5.6 L Albumin (3.4 - 5.0 g/dL) 1.30 L Hematology WBC (4.5 - 11.0 x10 3/uL) 17.9 H RBC (4.00 - 5.60 x10 6/uL) 2.64 L Hgb (12.5 - 16.9 g/dL) 7.3 L Hct (37.5 - 50.7 %) 22.6 L MCV (81.0 - 99.0 fL) 85.6 MCH (27.0 - 33.0 pg) 27.7 MCHC (33.0 - 37.0 g/dL) 32.3 L RDW (11.5 - 14.5 %) 15.1 H Plt Count (150 - 400 x10 3/uL) 226 MPV (7.0 - 9.0 fL) 10.7 H Neut % (Auto) (56.0 - 77.0 %) 86.3 H Lymph % (Auto) (14.0 - 32.0 %) 8.1 L Boundary % (Auto) (4.8 - 9.0 %) 4.3 L Eos % (Auto) (0.3 - 3.7 %) 0.5 Baso % (Auto) (0.0 - 2.0 %) 0.1 Neut # (Auto) (2.0 - 7.6 x10 3/uL) 15.44 H Lymph # (Auto) (1.0 - 3.8 x10 3/uL) 1.45 Boundary # (Auto) (0.1 - 0.8 x10 3/uL) 0.77 Eos # (Auto) (0.0 - 0.2 x10 3/uL) 0.09 Baso # (Auto) (0.0 - 0.2 x10 3/uL) 0.02 Abs Immat Gran (auto) (0.00 - 0.03 x10 3/uL) 0. 13 H Add Manual Diff NO Immature Gran % (0.0 - 2.0 %) 0.7 Nucleated RBC % (0 - 0 %) 0.0 Nucleated RBCs # (Man) (0.0 - 0.1 x10 3/uL) 0.0 0 Microbiology: Date/Time Procedure - Status Source Growth 08/25 104 Urine Culture - WKST URINE 08/25 1044 Blood Culture - RECD BLOOD 08/26 1043 Blood Culture - RECD BLOOD Laboratory Tests: 08/20 08/20 08/20 08/20 08/20 1107 0756 0647 0554 0454 Chemistry Sodium (134 - 147 mEq/L) 137 Potassium (3.4 - 5.0 mEq/L) 3.7 Chloride (100 - 108 mEq/L) 107 Carbon Dioxide (21 - 33 mEq/l) 20 L Anion Gap (0 - 20) 14 BUN (7 - 18 mg/dL) 44 H Creatinine (0.6 - 1.3 mg/dL) 1.2 Glomerular Filtr Rate (90 - 95) 70.1 L Glucose (70 - 110 mg/dL) 212 H POC Glucose (70 - 110 MG/DL) 173 H 192 H 206 H 198 H Calcium (8.0 - 10.5 mg/dL) 7.3 L Ionized Calcium Mitzi (1.09 - 1.30 MMOL/L) 1.04 L Phosphorus (2.5 - 4.9 MG/DL) 3.4 Magnesium (1.80 - 2.40 mg/dL) 2.05 Total Bilirubin (0.0 - 1.0 mg/dL) 0.60 AST (15 - 37 IUnit/L) 51 H ALT (30 - 65 IUnit/L) 22 L Total Alk Phosphatase (20 - 125 IUnit/L) 178 H Total Protein (6.4 - 8.2 g/dL) 5.7 L Albumin (3.4 - 5.0 g/dL) 2.00 L Hematology WBC (4.5 - 11.0 x10 3/uL) 22.8 H RBC (4.00 - 5.60 x10 6/uL) 2.63 L Hgb (12.5 - 16.9 g/dL) 7.1 L Hct (37.5 - 50.7 %) 21.3 L MCV (81.0 - 99.0 fL) 81.0 MCH (27.0 - 33.0 pg) 27.0 MCHC (33.0 - 37.0 g/dL) 33.3 RDW (11.5 - 14.5 %) 14.7 H Plt Count (150 - 400 x10 3/uL) 190 MPV (7.0 - 9.0 fL) 10.0 H Neut % (Auto) (56.0 - 77.0 %) 87.2 H Lymph % (Auto) (14.0 - 32.0 %) 4.8 L Boundary % (Auto) (4.8 - 9.0 %) 2.9 L Eos % (Auto) (0.3 - 3.7 %) 0.0 L Baso % (Auto) (0.0 - 2.0 %) 0.2 Neut # (Auto) (2.0 - 7.6 x10 3/uL) 19.90 H Lymph # (Auto) (1.0 - 3.8 x10 3/uL) 1.10 Boundary # (Auto) (0.1 - 0.8 x10 3/uL) 0.66 Eos # (Auto) (0.0 - 0.2 x10 3/uL) 0.00 Baso # (Auto) (0.0 - 0.2 x10 3/uL) 0.04 Abs Immat Gran (auto) (0.00 - 0.03 1.12 H x10 3/uL) Add Manual Diff NO Immature Gran % (0.0 - 2.0 %) 4.9 H Nucleated RBC % (0 - 0 %) 0.0 Nucleated RBCs # (Man) (0.0 - 0.1 0.00 x10 3/uL) 08/20 08/20 08/19 08/19 08/19 0259 0101 2352 2322 2310 Chemistry Sodium (134 - 147 mEq/L) 132 L Potassium (3.4 - 5.0 mEq/L) 3.7 Chloride (100 - 108 mEq/L) 107 Carbon Dioxide (21 - 33 mEq/l) 21 Anion Gap (0 - 20) 8 BUN (7 - 18 mg/dL) 41 H Creatinine (0.6 - 1.3 mg/dL) 1.2 Glomerular Filtr Rate (90 - 95) 70.1 L Glucose (70 - 110 mg/dL) 184 H POC Glucose (70 - 110 MG/DL) 195 H 181 H 182 H 191 H Calcium (8.0 - 10.5 mg/dL) 7.1 L Phosphorus (2.5 - 4.9 MG/DL) 3.3 Magnesium (1.80 - 2.40 mg/dL) 2.09 Albumin (3.4 - 5.0 g/dL) 1.70 L Hematology Hgb (12.5 - 16.9 g/dL) 7.0 L Hct (37.5 - 50.7 %) 21.8 L 08/19 08/19 08/19 08/19 08/19 2223 2131 2014 172 1652 Chemistry Sodium (134 - 147 mEq/L) 133 L Potassium (3.4 - 5.0 mEq/L) 3.6 Chloride (100 - 108 mEq/L) 105 Carbon Dioxide (21 - 33 mEq/l) 21 Anion Gap (0 - 20) 10 BUN (7 - 18 mg/dL) 45 H Creatinine (0.6 - 1.3 mg/dL) 1.2 Glomerular Filtr Rate (90 - 95) 70.1 L Glucose (70 - 110 mg/dL) 247 H POC Glucose (70 - 110 MG/DL) 165 H 209 H 218 H 219 H Calcium (8.0 - 10.5 mg/dL) 7.6 L Phosphorus (2.5 - 4.9 MG/DL) 3.0 Magnesium (1.80 - 2.40 mg/dL) 2.03 Albumin (3.4 - 5.0 g/dL) 1.40 L Hematology WBC (4.5 - 11.0 x10 3/uL) 20.3 H RBC (4.00 - 5.60 x10 6/uL) 2.57 L Hgb (12.5 - 16.9 g/dL) 7.1 L Hct (37.5 - 50.7 %) 20.9 L MCV (81.0 - 99.0 fL) 81.3 MCH (27.0 - 33.0 pg) 27.6 MCHC (33.0 - 37.0 g/dL) 34.0 RDW (11.5 - 14.5 %) 14.3 Plt Count (150 - 400 x10 3/uL) 197 MPV (7.0 - 9.0 fL) 10.2 H Neut % (Auto) (56.0 - 77.0 %) 88.7 H Lymph % (Auto) (14.0 - 32.0 %) 3.8 L Boundary % (Auto) (4.8 - 9.0 %) 3.7 L Eos % (Auto) (0.3 - 3.7 %) 0.0 L Baso % (Auto) (0.0 - 2.0 %) 0.3 Neut # (Auto) (2.0 - 7.6 x10 3/uL) 17.97 H Lymph # (Auto) (1.0 - 3.8 x10 3/uL) 0.76 L Boundary # (Auto) (0.1 - 0.8 x10 3/uL) 0.74 Eos # (Auto) (0.0 - 0.2 x10 3/uL) 0.00 Baso # (Auto) (0.0 - 0.2 x10 3/uL) 0.07 Abs Immat Gran (auto) (0.00 - 0.03 0.71 H x10 3/uL) Add Manual Diff NO Immature Gran % (0.0 - 2.0 %) 3.5 H Nucleated RBC % (0 - 0 %) 0.0 Nucleated RBCs # (Man) (0.0 - 0.1 0.00 x10 3/uL) 08/19 08/19 1622 1601 Chemistry POC Glucose (70 - 110 MG/DL) 232 H Urines Urine Color (YEL/STRAW) YELLOW Urine Appearance (CLEAR) SL CLOUDY Urine pH (5.0 - 7.0) 5.0 Ur Specific [place] (1.005 - 1.030) 1.013 Urine Protein (NEGATIVE) 1+ H Urine Glucose (UA) (NEGATIVE) 3+ H Urine Ketones (NEGATIVE) NEGATIVE Urine Blood (NEGATIVE) 2+ H Urine Nitrite (NEGATIVE) NEGATIVE Urine Bilirubin (NEGATIVE) NEGATIVE Urine Urobilinogen (0.2 - 1.0 mg/dL) 0.2 Ur Leukocyte Esterase (NEGATIVE) 3+ H Urine RBC (0 - 3 RBC/HPF) 4-10 Urine WBC (0 - 3 WBC/HPF) 21-50 H Ur Squamous Epith Cells (NONE SEEN /HPF) 0-5 Urine Bacteria (NONE SEEN /HPF) TRACE Urine Mucus (NONE SEEN /LPF) TRACE Microbiology: Date/Time Procedure - Status Source Growth 08/20 1457 Blood Culture - ORD BLOOD 08/20 145 Blood Culture - ORD BLOOD 08/19 171 Blood Culture - ORD BLOOD 08/19 171 Blood Culture - ORD BLOOD 08/19 1622 Urine Culture - RES URINE Laboratory Tests: 08/19 08/19 08/19 08/19 08/19 1338 1335 1233 1115 1115 Chemistry Sodium (134 - 147 mEq/L) 130 L Potassium (3.4 - 5.0 mEq/L) 3.6 Chloride (100 - 108 mEq/L) 107 Carbon Dioxide (21 - 33 mEq/l) 22 Anion Gap (0 - 20) 5 BUN (7 - 18 mg/dL) 39 H Creatinine (0.6 - 1.3 mg/dL) 1.1 Glomerular Filtr Rate (90 - 95) 77.8 L Glucose (70 - 110 mg/dL) 315 H POC Glucose (70 - 110 MG/DL) 340 H 363 H 326 H Calcium (8.0 - 10.5 mg/dL) 7.6 L Phosphorus (2.5 - 4.9 MG/DL) 2.2 L Magnesium (1.80 - 2.40 mg/dL) 2.06 B-Natriuretic Peptide (0 - 100 PG/ML) 96.0 Albumin (3.4 - 5.0 g/dL) 1.50 L 08/19 08/19 08/19 08/19 0805 0737 0737 0445 Chemistry Sodium (134 - 147 mEq/L) 130 L 130 L Potassium (3.4 - 5.0 mEq/L) 3.3 L 3.0 L Chloride (100 - 108 mEq/L) 103 102 Carbon Dioxide (21 - 33 mEq/l) 20 L 22 Anion Gap (0 - 20) 10 10 BUN (7 - 18 mg/dL) 42 H 43 H Creatinine (0.6 - 1.3 mg/dL) 1.2 1.3 Glomerular Filtr Rate (90 - 95) 70.1 L 63.7 L Glucose (70 - 110 mg/dL) 322 H 359 H POC Glucose (70 - 110 MG/DL) 292 H Calcium (8.0 - 10.5 mg/dL) 8.2 7.7 L Phosphorus (2.5 - 4.9 MG/DL) 2.6 2.9 Magnesium (1.80 - 2.40 mg/dL) 2.13 2.13 Iron (35 - 150 mcg/dL) 8 L TIBC (260 - 445 mcg/dL) 148 L % Saturation (14 - 34 %) 5.4 L Unsat Iron Binding (mcg/dL) 140 Ferritin (23.9 - 336.2 ng/mL) 2429.2 H Total Bilirubin (0.0 - 1.0 mg/dL) 0.60 AST (15 - 37 IUnit/L) 27 ALT (30 - 65 IUnit/L) 13 L Total Alk Phosphatase (20 - 125 IUnit/L) 150 H Total Protein (6.4 - 8.2 g/dL) 5.6 L Albumin (3.4 - 5.0 g/dL) 1.60 L 1.50 L Vitamin B12 (193 - 986 pg/mL) 5883 H Folate (3.1 - 17.5 ng/mL) 9.5 08/19 08/19 08/19 08/19 0340 0332 0330 0101 Chemistry POC Glucose (70 - 110 MG/DL) 332 H 296 H Hemoglobin A1c (4.8 - 6.0 %A1C) > 14.0 H Ionized Calcium Mitzi (1.09 - 1.30 MMOL/L) 1.07 L Hematology WBC (4.5 - 11.0 x10 3/uL) 21.3 H RBC (4.00 - 5.60 x10 6/uL) 2.80 L Hgb (12.5 - 16.9 g/dL) 7.6 L Hct (37.5 - 50.7 %) 22.3 L MCV (81.0 - 99.0 fL) 79.6 L MCH (27.0 - 33.0 pg) 27.1 MCHC (33.0 - 37.0 g/dL) 34.1 RDW (11.5 - 14.5 %) 14.0 Plt Count (150 - 400 x10 3/uL) 227 MPV (7.0 - 9.0 fL) 9.9 H Neut % (Auto) (56.0 - 77.0 %) 89.9 H Lymph % (Auto) (14.0 - 32.0 %) 4.3 L Boundary % (Auto) (4.8 - 9.0 %) 3.1 L Eos % (Auto) (0.3 - 3.7 %) 0.0 L Baso % (Auto) (0.0 - 2.0 %) 0.3 Neut # (Auto) (2.0 - 7.6 x10 3/uL) 19.17 H Lymph # (Auto) (1.0 - 3.8 x10 3/uL) 0.91 L Boundary # (Auto) (0.1 - 0.8 x10 3/uL) 0.67 Eos # (Auto) (0.0 - 0.2 x10 3/uL) 0.01 Baso # (Auto) (0.0 - 0.2 x10 3/uL) 0.07 Abs Immat Gran (auto) (0.00 - 0.03 x10 3/uL) 0. 51 H Add Manual Diff NO Immature Gran % (0.0 - 2.0 %) 2.4 H Nucleated RBC % (0 - 0 %) 0.0 Nucleated RBCs # (Man) (0.0 - 0.1 x10 3/uL) 0.0 0 03/27 03/27 03/27 03/27 2246 2157 1854 1653 Chemistry Sodium (134 - 147 mEq/L) 129 L Potassium (3.4 - 5.0 mEq/L) 3.3 L Chloride (100 - 108 mEq/L) 102 Carbon Dioxide (21 - 33 mEq/l) 20 L Anion Gap (0 - 20) 10 BUN (7 - 18 mg/dL) 44 H Creatinine (0.6 - 1.3 mg/dL) 1.3 Glomerular Filtr Rate (90 - 95) 63.7 L Glucose (70 - 110 mg/dL) 296 H POC Glucose (70 - 110 MG/DL) 265 H 226 H 223 H Calcium (8.0 - 10.5 mg/dL) 7.7 L Phosphorus (2.5 - 4.9 MG/DL) 2.8 Magnesium (1.80 - 2.40 mg/dL) 2.13 Albumin (3.4 - 5.0 g/dL) 1.70 L Microbiology: Date/Time Procedure - Status Source Growth 08/19 121 Wound Culture - RES ABSCESS 08/19 1210 Anaerobic Culture - RES ABSCESS 08/190 Gram Stain - RES ABSCESS Recent Impressions: ULTRASOUND - DUP LE ART UNI/LTD 08/19 0950 Report Impression - Status: SIGNED Entered: 08/19/2022 1056 IMPRESSION: No sonographic evidence for flow-limiting stenos is in the right lower extremity arterial system. Impression By: [email or web address] - Abraham Ross M.D. Laboratory Tests: 08/18 08/18 08/18 08/18 08/18 1430 1430 1404 1309 1203 Chemistry Sodium (134 - 147 mEq/L) 131 L Potassium (3.4 - 5.0 mEq/L) 3.4 Chloride (100 - 108 mEq/L) 101 Carbon Dioxide (21 - 33 mEq/l) 24 Anion Gap (0 - 20) 9 BUN (7 - 18 mg/dL) 58 H Creatinine (0.6 - 1.3 mg/dL) 1.4 H Glomerular Filtr Rate (90 - 95) 58.3 L Glucose (70 - 110 mg/dL) 207 H POC Glucose (70 - 110 MG/DL) 195 H 213 H 201 H Calcium (8.0 - 10.5 mg/dL) 7.8 L Phosphorus (2.5 - 4.9 MG/DL) 2.2 L Magnesium (1.80 - 2.40 mg/dL) 2.09 Albumin (3.4 - 5.0 g/dL) 1.60 L Triglycerides (40 - 150 mg/dL) 161 H Cholesterol (<200 mg/dL) 90 LDL Cholesterol [place] (0 - 100 mg/dL) 33.0 HDL Cholesterol (32 - 72 mg/dL) < 20.0 L Cholesterol/HDL Ratio (3.43 - 4.97 4.00 RATIO) TSH (0.42 - 5.47) 0.96 Free T4 (0.77 - 1.61 ng/dL) 0.7 L 08/18 08/18 08/18 08/18 08/18 1107 1004 0900 0823 0549 Chemistry POC Glucose (70 - 110 MG/DL) 223 H 304 H 405 H 449 H Hemoglobin A1c (4.8 - 6.0 %A1C) 13.4 H 08/18 08/18 08/18 0549 0305 0207 Blood Gas Puncture Site R Radial O2 Saturation (90 - 100 %) 97.9 ABG pH (7.35 - 7.45) 7.309 L ABG pCO2 (35.0 - 45 mmHg) 22.3 *L ABG pO2 (80 - 100.0 mmHg) 108.0 H ABG PO2/FiO2 Ratio (mm/Hg) 514.28 ABG HCO3 (22.0 - 26.0 MMOL/L) 11.2 *L ABG Total CO2 11.9 ABG Base Excess (-4.0 - 4.0 MMOL/L) -15.1 L Neto Test Positive O2 Delivery Device Room Air FiO2 (%) 21 Chemistry Sodium (134 - 147 mEq/L) 121 *L Potassium (3.4 - 5.0 mEq/L) 4.1 Chloride (100 - 108 mEq/L) 90 L Carbon Dioxide (21 - 33 mEq/l) 15 L Anion Gap (0 - 20) 20 BUN (7 - 18 mg/dL) 62 H Creatinine (0.6 - 1.3 mg/dL) 1.7 H Glomerular Filtr Rate (90 - 95) 46.2 L Glucose (70 - 110 mg/dL) 692 *H Calcium (8.0 - 10.5 mg/dL) 7.5 L Phosphorus (2.5 - 4.9 MG/DL) 4.8 Magnesium (1.80 - 2.40 mg/dL) 2.34 Albumin (3.4 - 5.0 g/dL) 1.60 L Serology Influenza Type A (PCR) (Negative) Negative Influenza Type B (PCR) (Negative) Negative Toxicology Acetone, Quant (Neg - <20 mg/dL) Large - 80-100 mg/dL 08/18 08/18 08/18 0205 0203 0203 Chemistry Sodium (134 - 147 mEq/L) 115 *L Potassium (3.4 - 5.0 mEq/L) 4.4 Chloride (100 - 108 mEq/L) 84 L Carbon Dioxide (21 - 33 mEq/l) 14 L Anion Gap (0 - 20) 21 H BUN (7 - 18 mg/dL) 60 H Creatinine (0.6 - 1.3 mg/dL) 1.9 H Glomerular Filtr Rate (90 - 95) 40.4 L Glucose (70 - 110 mg/dL) 709 *H Lactic Acid (0.4 - 1.9 mmol/L) 1.2 Calcium (8.0 - 10.5 mg/dL) 8.5 Total Bilirubin (0.0 - 1.0 mg/dL) 0.40 Direct Bilirubin (0.0 - 0.30 MG/DL) 0.20 Indirect Bilirubin (MG/DL) 0.20 AST (15 - 37 IUnit/L) 14 L ALT (30 - 65 IUnit/L) 10 L Total Alk Phosphatase (20 - 125 IUnit/L) 157 H Troponin I High Sens (0 - 54 ng/L) 4 Total Protein (6.4 - 8.2 g/dL) 6.4 Albumin (3.4 - 5.0 g/dL) 1.80 L Lipase (13 - 57 U/L) 24 Hematology WBC (4.5 - 11.0 x10 3/uL) 26.5 H RBC (4.00 - 5.60 x10 6/uL) 3.36 L Hgb (12.5 - 16.9 g/dL) 9.0 L Hct (37.5 - 50.7 %) 28.3 L MCV (81.0 - 99.0 fL) 84.2 MCH (27.0 - 33.0 pg) 26.8 L MCHC (33.0 - 37.0 g/dL) 31.8 L RDW (11.5 - 14.5 %) 14.5 Plt Count (150 - 400 x10 3/uL) 355 MPV (7.0 - 9.0 fL) 9.9 H Add Manual Diff YES Seg Neutrophils % (37 - 69 %) 70.0 H Band Neutrophils % (0.0 - 10.0 %) 12.7 H Lymphocytes % (Manual) (23 - 55 %) 3.7 L Monocytes % (Manual) (0 - 10 %) 9.1 Metamyelocytes (0.0 - 0.0 %) 2.7 H Myelocytes (0.0 - 0.0 %) 0.9 H Promyelocytes (0 - 0 %) 0.9 H Platelet Estimate (ADEQUATE THOUSAND) Adequate Plt Morphology Comment NORMAL Polychromasia 3+ Poikilocytosis 3+ Anisocytosis 1+ Macrocytosis 1+ Serology SARS-CoV-2 Ag (Rapid) (Negative) Negative Toxicology Salicylates (0.0 - 20.0 mg/dL) 5.6 Microbiology: Date/Time Procedure - Status Source Growth 08/18 0915 Wound Culture - ORD FOOT 08/18 0207 Wound Culture - RECD FOOT 08/18 0207 Group A Streptococcus Screen (VERONICA) - COMP THROAT 08/18 0207 Streptococcus Culture - COMP THROAT 08/18 0203 Blood Culture - RES BLOOD 08/18 0203 Blood Culture Gram Stain - RES BLOOD 08/18 0203 Blood Culture - RES BLOOD 08/18 0203 Blood Culture Gram Stain - RES BLOOD Recent Impressions: RADIOLOGY - XR CHEST 2 V 08/18 0201 Report Impression - Status: SIGNED Entered: 08/18/2022 0317 IMPRESSION: Ill-defined somewhat nodular opacity measuring 3 .2 cm laterally in the right mid lung suspicious for rounded pneumo ro given provided history, but underlying neoplasm can not be excl uded. Followup radiographs are recommended after appropriate tr eatment in order to document complete resolution and exclude an unde rlying process or neoplasm. Impression By: Mark - Dom Adams M.D. RADIOLOGY - XR FOOT 3 + V RT 08/18 0238 Report Impression - Status: SIGNED Entered: 08/18/2022 0358 IMPRESSION: No acute osseous findings. No convincing evidenc e for osteomyelitis. MRI is more sensitive for detecti ng osteomyelitis. Impression By: Ankur Ladd M.D. CAT SCAN - CT ABD PELVIS W/CONT 08/18 0339 Report Impression - Status: SIGNED Entered: 08/18/2022 0546 IMPRESSION: 3.3 cm hypodensity in the left posterior prostat e or seminal vesicle. This could represent an abscess. Contra st-enhanced MRI of the pelvis would be helpful for further evaluati on. No acute intra-abdominal findings otherwise. Impression By: Ankur Ladd M.D. CAT SCAN - CT LOWER EXTRM W/O C RT 08/18 0645 Report Impression - Status: SIGNED Entered: 08/18/2022 0827 IMPRESSION: Extensive soft tissue edema with mottled gas in the subcutaneous and intramuscular compartments of the foot abhishek tible with gas-forming infection. Disease extends into the visualized distal leg. Impression By: Jamel Dorantes M.D. 1. Diabetes mellitus type 2 uncontrolled with co mplications. 2. DKA 3. Cellulitis and gangrene of the right foot. 4. Sepsis 5. Altered mental status 6. High LFTs Blood sugar 145-118 mg/dL. HbA1c 13.4% Adjust insulin dose. Wound care and IV antibiotics. S/P wound debridement. Electronically Signed by Braxton Chapin MD on 03/16 at 1813 RPT #:[id number] END OF REPORT 2022-09-01 15:30:00-00:00 [facility] Progress Note REPORT#:[id number] REPORT STATUS: Signed DATE:09/01/22 TIME: 1530 PATIENT: KARMA ROWLAND UNIT #: [id number] ROOM/BED: [place] [id number] : 61 AGE: 56 SEX: M ATTEND: Mikayla Ramires MD ADM AUTHOR: Liam Pedersen DPM * ALL edits or amendments must be made on the el ectronic/computer document * Subjective Chief complaint: seen at bedside,. family memebers next to him denies having any pain foot covered and protected and offloaded drainage noted serosang. increased warmth Patient reports: no confusion, no diarrh ea, no fatigue, no headache, no nausea Objective General VS: Last Documented: Result Date Time Pulse Ox 99 09/01 110 B/P 141/67 09/01 110 B/P Mean 0.0 09/01 110 Temp 36.6 09/01 110 Pulse 86 09/01 110 Resp 15 09/01 110 O2 Delivery Room air 08/31 1928 O2 Flow Rate 7 08/28 1222 PATIENT WEIGHT: Weight (lb): 154 Weight (oz): 1.65 Weight (kg): 69.900 Medications: Active Meds + DC'd Last 24 Hrs Sodium Chloride (SODIUM CHLORIDE) 10 ML BID IV Benzocaine/Butamben/Tetracaine HCl (CETACAINE) 1 APPLIC ASDIR PRN MM ( CKD) Flumazenil (ROMAZICON) 0.2 MG ASDIR PRN IV Midazolam HCl (VERSED) 2 MG ASDIR PRN IV Naloxone HCl (NARCAN) 0.4 MG ASDIR PRN IV Vancomycin HCl (VANCOMYCIN HCL) 1,000 MG Q24H IV Sodium Chloride (SODIUM CHLORIDE 0.9%) 250 ML Lidocaine HCl (LIDOCAINE 1% 5ML) 5 ML ONCE ONE L OCAL (DC) Sodium Chloride (SODIUM CHLORIDE) 10 ML ASDIR NV N IV Cefepime HCl (MAXIPIME) 1 GM Q6H IV Sodium Chloride (SODIUM CHLORIDE) 10 ML Miscellaneous Information (VANCOMYCIN PHARMACY T O DOSE) 1 EACH ASDIR IV (CKD) Hydralazine HCl (APRESOLINE) 10 MG Q6H PRN PRN I V Insulin Glargine (Lantus/Semglee) 15 UNIT BEDTIM E SUBQ Insulin Human Lispro (HUMALOG) 5 UNIT AC SUBQ Lidocaine (LIDODERM) 1 PATCH DAILY TOPICAL Hydromorphone HCl (DILAUDID) 1 MG Q3H PRN PRN IV Hydromorphone HCl (DILAUDID) 0.5 MG Q3H PRN PRN IV Meropenem (MEROPENEM) 500 MG Q6H IV (DC) Sterile Water (WATER FOR INJECTION) 10 ML Daptomycin (CUBICIN 500MG) 700 MG Q24H IV (DC) Sodium Chloride (SODIUM CHLORIDE 0.9%) 50 ML Lorazepam (ATIVAN) 1 MG ONCE PRN IV Sodium Chloride (SODIUM CHLORIDE) 0 ASDIR PRN IV Insulin Human Lispro (HUMALOG) 0 AC HS SUBQ Dextrose/Water (DEXTROSE 10% IN WATER) 125 ML DIR PRN IV (CKD) Dextrose/Water (DEXTROSE 10% IN WATER) 250 ML DIR PRN IV (CKD) Glucagon (GLUCAGON) 1 MG ASDIR PRN IM Dextrose/Water (Dextrose 10% 1,000 mL) 1,000 ML ASDIR IV Acetaminophen (TYLENOL) 650 MG Q6H PRN PRN PO Bisacodyl (DULCOLAX) 10 MG DAILY PRN PRN RECTAL Docusate Sodium (COLACE) 100 MG Q12H PRN PRN PO Ondansetron HCl (ZOFRAN) 4 MG Q6H PRN PRN IV Heparin Sodium (HEPARIN 5000 UNITS/ML) 5,000 UNI T Q8HR SUBQ I O: 24 hour I O ending at 0700: 09/01 0700 08/31 1900 Intake Total 400 Output Total Balance 400 Intake, IV 50 Intake, 350 Packed Cells Number 2 Bowel Movements Dietitian nutrition assessment The data set between the solid lines has been im ported from the dietitian's assessment. BMI Calculated: 24.9 Nutrition related diagnosis: Overweight Nutrition diagnosis details: BMI 25-29.9 Nutrition problem: Increased nutrient needs Nutrition etiology: metabolic demand of wound , healing Nutrition signs and symptoms : recent BKA with need for , arginine and glutamine Nutrition prescription: 1) Recommend Cardiac ADA diet with 5 CHO/meal. 2) Supplement with Chinedu BID. Dietitian name: Judith Smith, DIET Assessment completed: 08/28/22 Physical Exam General appearance: alert, awake, oriented, plea delia, conversational Wound/incision: Location: Right foot s/p BKA DP and PT pulses very weak left foot. Sensation is greatly decreased on the left foot . Left foot has no ulcers but has OA changes at a nkle with some chronic edema. LE vascular pulse assess: Nonpalpable R posterior tibi chasidy, Nonpalpable L posterior tibialis, Nonpalpable R dorsalis pedis, Nonpalpable L dorsalis pedis Considered stroke alert: no Results Findings/Data: Laboratory Tests: 09/01 09/01 09/01 09/01 08/31 1104 0852 0704 0345 1916 Chemistry POC Glucose (70 - 110 MG/DL) 118 H 145 H 176 H Total Creatine Kinase (46 - 171 79 Units/L) Serology SARS-CoV-2 Ag (Rapid) (Negative) Negative 08/31 08/31 1810 1618 Chemistry POC Glucose (70 - 110 MG/DL) 163 H Hematology Hgb (12.5 - 16.9 g/dL) 9.1 L Hct (37.5 - 50.7 %) 28.2 L Diagnosis, Assessment Plan Free Text A P: Gas gangrene right foot s/p BKA Diabetes with peripheral neuropathy Minimal peripheral vascular diseese Sepsis DKA Edema and arthritis left ankle IV antibiotics Monitor leukocytosis NIAS: minimal PVD right 08/19 OR culture: MRSA blood cultures: MRSA dc lavage oralia wrap compression left ankle venous u/s left no dvt Electronically Signed by Liam Pedersen DPM on 0 09/01/22 at 1532 RPT #:[id number] END OF REPORT 2022-09-01 12:15:00-00:00 [facility] ([facility]) Infectious Dis. Progress Note REPORT#:[id number] REPORT STATUS: Signed DATE:09/01/22 TIME: 1215 PATIENT: KARMA ROWLAND UNIT #: [id number] ROOM[facility]BED: [facility] : 63 AGE: 56 SEX: M ATTEND: Mikayla Ramires MD ADM AUTHOR: Merry Wolff MD * ALL edits or amendments must be made on the el [employer]ronic/computer document * Subjective Chief complaint: Follow-up on MRSA bacteremia, right lower extrem ity necrotizing soft tissue infection. HPI: PT is a 56yr old male with h istory of diabetes mellitus type 2, hypertension who was admitted with altered mental status and righ t-sided foot infection. According to him, he noticed a blister on his right foot around 3 days prior to presentation. His foot got progressively more sw ollen and erythema extended proximally to his lateral foot and ankle. CT abd omen and pelvis with contrast is concerning for possible prostate abscess. CT of lower extremity without contrast shows extensive sof t tissue edema with mottled gas in the subcutaneous and intramuscular compartments of the foot, comp atible with gas-forming infection. Patient's blood cultures have come ba ck positive for MRSA in 2 out of 2 sets. PT has had persistent (+)Ve cx for MR FREITAS 08/18- 08/22. He underwent a debridement of his foot on 08/19 and cx g rew MRSA. PT was started on Vancomycin and clindamycin on 08/18. His MRI showed a prosta te abscess. 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 08/25 PT is afebrile, his WBX is 17.9, he is awake and alert. at the bedside 08/26 plan for transrectal asp iration today and BKA on 08/28, pt is afebrile, WBC is 17.7, blood cx sent on 08/25 still positive, urine cx sent on 08/25 contaminated 08/27 s/p transrectal aspirati on and unroofing of prostate abscess 08/26, aspiration cx growing GNR, pt is afebrile, WBC down to 15.9 from 17.7, 08/28 Pt had right BKA today, afebrile, WBC 13.8 f rom 15.9 08/29 pt doing well, awake, al ert, afebrile, family at bedside, states he only has a little bit of pain 09/01 is in IMCU, doing well, afebrile Patient reports: No: cough, diarrhea, fever, headache, nausea, sh ortness of breath. Portions of this section wer e scribed by Jill Quintero on 09/01/22 at 1215 Objective General VS/I O: Vital Signs Date Temp Pulse Resp B/P B/P Mean Pulse Ox FiO2 /-09/01 97.5-98.5 79-97 10-17 115-195/59-88 0.0-124 90-100 Last Documented: Result Date Time Pulse Ox 99 09/01 1105 B/P 141/67 04/ 1105 B/P Mean 0.0 09/01 1105 Temp 97.9 09/01 1105 Pulse 86 09/01 1105 Resp 15 09/01 1105 O2 Delivery Room air 08/31 1929 O2 Flow Rate 7 08/28 1222 Vital Signs: Date Time Temp Pulse Resp B/P B/P Pulse O2 O2 F low FiO2 Mean Ox Delivery Rate 09/01 1105 97.9 86 15 141/67 0.0 99 /10 0826 80 94 04/10 0800 84 12 153/72 104 99 /10 0708 98.4 83 12 129/63 0.0 99 04/10 0700 84 15 129/63 90 98 04/10 0600 81 115/59 83 99 04/10 0500 80 17 126/65 90 97 04/10 0435 98.5 79 16 126/65 85 99 04/10 0400 83 16 128/64 90 97 04/10 0300 86 14 126/59 85 97 04/10 0200 87 148/70 101 97 04/10 0100 91 12 141/67 97 97 04/10 0032 98.1 90 16 138/66 90 99 04/10 0000 88 16 138/66 95 98 04/09 2300 87 13 134/64 92 98 04/09 2200 85 10 132/63 90 97 04/09 2100 139/64 92 04/09 2059 89 10 96 04/09 2000 92 14 167/77 111 99 04/09 1929 98.3 94 16 151/69 96 100 Room air 08/31 1900 96 151/69 99 98 04/09 1835 97 14 180/85 122 99 04/09 1804 15 04/09 1800 95 184/86 124 99 04/09 1620 97.5 95 16 195/88 0.0 99 04/09 1435 97.9 90 14 150/70 98 04/09 1430 98.1 89 14 147/69 98 04/09 1425 97.8 90 15 157/83 99 04/09 1419 98.3 90 14 155/68 90 24 hour I O ending at 0700: 09/01 0700 08/31 1900 Intake Total 400 Output Total Balance 400 Intake, IV 50 Intake, 350 Packed Cells Number 2 Bowel Movements PATIENT WEIGHT: Weight (lb): 154 Weight (oz): 1.65 Weight (kg): 69.900 Antibiotic start date: Antibiotic: clindamycin Start Date: 08/18-08/25 Antibiotic: Vancomycin Start Date: Antibiotic: Teflaro Start Date:08/25-08/27 Antibiotic: daptomycin Start Date:08/25 Antibiotic: Merrem Start Date:08/27 Physical Exam General appearance: alert, awake, oriented Wound/incision: Location: right BKA Head/Eyes: atraumatic, normocephalic Neck: supple/no meningismus, no JVD Cardiovascular: normal heart sounds, regular rat e rhythm, no murmur Respiratory: clear to auscultation, aerating wel l, symmetric expansion Abdomen: non-tender, soft, no distention Genitourinary: urinary catheter ( on CBI) Extremities: edema, right BKA 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, 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 Considered stroke alert: no Skin: lesions, no rash Psychiatry: normal affect, normal mood Results Findings/Data: Laboratory Tests 09/01 09/01 09/01 08/31 08/31 1104 0704 0345 1916 1618 Chemistry POC Glucose (70 - 110 MG/DL) 118 H 145 H 176 H 163 H Total Creatine Kinase (46 - 171 79 Units/L) 08/31 124 Chemistry POC Glucose (70 - 110 MG/DL) 76 Laboratory Tests 08/31 1809 Hematology Hgb (12.5 - 16.9 g/dL) 9.1 L Hct (37.5 - 50.7 %) 28.2 L Laboratory Tests 09/01 0852 Serology SARS-CoV-2 Ag (Rapid) (Negative) Negative Laboratory Tests: 09/01 09/01 09/01 09/01 08/31 1104 0852 0704 0345 1916 Chemistry POC Glucose (70 - 110 MG/DL) 118 H 145 H 176 H Total Creatine Kinase (46 - 171 Units/L) 79 Serology SARS-CoV-2 Ag (Rapid) (Negative) Negative 04/09 04/09 04/09 04/09 04/09 1810 1618 1240 1203 0714 Chemistry POC Glucose (70 - 110 MG/DL) 163 H 76 44 L 110 Hematology Hgb (12.5 - 16.9 g/dL) 9.1 L Hct (37.5 - 50.7 %) 28.2 L 08/31 08/30 08/30 08/30 0642 1943 1651 1218 Chemistry Sodium (134 - 147 mEq/L) 136 Potassium (3.4 - 5.0 mEq/L) 5.4 H Chloride (100 - 108 mEq/L) 110 H Carbon Dioxide (21 - 33 mEq/l) 22 Anion Gap (0 - 20) 9 BUN (7 - 18 mg/dL) 29 H Creatinine (0.6 - 1.3 mg/dL) 1.2 Glomerular Filtr Rate (90 - 95) 70.1 L Glucose (70 - 110 mg/dL) 129 H POC Glucose (70 - 110 MG/DL) 140 H 109 81 Calcium (8.0 - 10.5 mg/dL) 7.2 L Hematology WBC (4.5 - 11.0 x10 3/uL) 8.7 RBC (4.00 - 5.60 x10 6/uL) 2.50 L Hgb (12.5 - 16.9 g/dL) 6.9 L Hct (37.5 - 50.7 %) 21.7 L MCV (81.0 - 99.0 fL) 86.8 MCH (27.0 - 33.0 pg) 27.6 MCHC (33.0 - 37.0 g/dL) 31.8 L RDW (11.5 - 14.5 %) 14.3 Plt Count (150 - 400 x10 3/uL) 208 MPV (7.0 - 9.0 fL) 9.4 H Neut % (Auto) (56.0 - 77.0 %) 76.3 Lymph % (Auto) (14.0 - 32.0 %) 16.8 Boundary % (Auto) (4.8 - 9.0 %) 4.8 Eos % (Auto) (0.3 - 3.7 %) 1.6 Baso % (Auto) (0.0 - 2.0 %) 0.2 Neut # (Auto) (2.0 - 7.6 x10 3/uL) 6.63 Lymph # (Auto) (1.0 - 3.8 x10 3/uL) 1.46 Boundary # (Auto) (0.1 - 0.8 x10 3/uL) 0.42 Eos # (Auto) (0.0 - 0.2 x10 3/uL) 0.14 Baso # (Auto) (0.0 - 0.2 x10 3/uL) 0.02 Abs Immat Gran (auto) (0.00 - 0.03 x10 3/uL) 0. 03 Add Manual Diff NO Immature Gran % (0.0 - 2.0 %) 0.3 Nucleated RBC % (0 - 0 %) 0.0 Nucleated RBCs # (Man) (0.0 - 0.1 x10 3/uL) 0.0 0 Medication(s) Ordered: Anti-Infective Agents Sig/Jan Start time Last Medication Dose Route Stop Time Status Admin Vancomycin HCl 1,000 MG Q24H 09/01 1200 AC Sodium Chloride 250 ML IV 09/08 1159 Cefepime HCl 1 GM Q6H 09/01 1100 AC Sodium Chloride 10 ML IV 09/29 1059 Miscellaneous 1 EACH ASDIR 09/01 1030 CKD Information IV 10/01 1029 Meropenem 500 MG Q6H 08/27 1330 DC 09/01 Sterile Water 10 ML IV 09/03 1329 0757 Daptomycin 700 MG Q24H 08/25 1100 DC 08/31 Sodium Chloride 50 ML IV 09/08 1059 1311 Blood Formation,Coagulation Sig/Jan Start time Last Medication Dose Route Stop Time Status Admin Heparin Sodium 5,000 UNIT Q8HR 08/18 0600 AC 0 09/01 SUBQ 09/17 0559 0606 Cardiovascular Drugs Sig/Jan Start time Last Medication Dose Route Stop Time Status Admin Lidocaine HCl 5 ML ONCE ONE 09/01 1115 DC LOCAL 09/01 1116 Hydralazine HCl 10 MG Q6H PRN PRN 08/31 1915 AC IV 09/30 1914 Central Nervous System Agents Sig/Jan Start time Last Medication Dose Route Stop Time Status Admin Hydromorphone HCl 1 MG Q3H PRN PRN 08/28 1815 A C 09/01 IV 09/02 1814 0804 Hydromorphone HCl 0.5 MG Q3H PRN PRN 08/28 1815 AC IV 09/02 1814 Lorazepam 1 MG ONCE PRN 08/21 0900 AC 08/21 IV 09/20 0859 1143 Acetaminophen 650 MG Q6H PRN PRN 08/18 0945 AC 08/30 PO 09/17 0944 0305 Electrolytic, Caloric, And Daniel Sig/Jan Start time Last Medication Dose Route Stop Time Status Admin Sodium Chloride 10 ML BID 09/01 2100 AC IV 10/01 2059 Sodium Chloride 10 ML ASDIR PRN 09/01 1115 AC IV 10/01 1114 Sodium Polystyrene 30 GM ONCE ONE 08/31 1400 DC 08/31 Sulfonate PO 08/31 1401 1504 Sodium Chloride 0 ASDIR PRN 08/21 0900 AC IV 09/20 0859 Dextrose/Water 125 ML ASDIR PRN 08/20 1530 CKD IV 09/19 1529 Dextrose/Water 250 ML ASDIR PRN 08/20 1530 CKD IV 09/19 1529 Dextrose/Water 1,000 ML ASDIR 08/19 1015 AC IV 09/18 1014 Gastrointestinal Drugs Sig/Jan Start time Last Medication Dose Route Stop Time Status Admin Bisacodyl 10 MG DAILY PRN PRN 08/18 0945 AC RECTAL 09/17 0944 Docusate Sodium 100 MG Q12H PRN PRN 08/18 0945 AC 08/22 PO 09/17 0944 2109 Ondansetron HCl 4 MG Q6H PRN PRN 08/18 0945 AC IV 09/17 0944 Hormones And Synthetic Substit Sig/Jan Start time Last Medication Dose Route Stop Time Status Admin Insulin Glargine 15 UNIT BEDTIME 08/30 2100 AC 08/31 SUBQ 09/29 205 203 Insulin Human Lispro 5 UNIT AC 08/30 0730 AC SUBQ 09/29 0729 0759 Insulin Human Lispro 0 HS 08/20 1630 AC SUBQ 09/19 1629 1319 Glucagon 1 MG ASDIR PRN 08/20 1530 AC IM 09/19 1529 Local Anesthetics (Parenteral) Sig/Jan Start time Last Medication Dose Route Stop Time Status Admin Lidocaine 1 PATCH DAILY 08/29 1230 AC 09/01 TOPICAL 09/28 1229 0757 Portions of this section wer e scribed by Jill Quintero on 09/01/22 at 1215 Treatment Prophylaxis Treatment Prophylaxis Lines: peripheral CVC/PICC documentation: The data below has been imported from nursing do cumentation. Any exceptions have been noted below under Provider comments. CVC/PICC insertion date/time: Provider comments on imported nursing data: [] Portions of this section wer e scribed by Jill Quintero on 09/01/22 at 1215 Diagnosis, Assessment Plan Free Text A P: Assessment: *MRSA bacteremia -Initial blood cultures from 08/18/2022 positive for MRSA in 2 out of 2 sets. -Repeat blood cultures 08/21/2022 are already po sitive for MRSA in 2 out of 2 sets, suggesting persistent high-grade bacteremi a. -TTE 08/18/2022 negative for any obvious vegetat ions. -08/28 neg *Severe sepsis due to above *Right lower extremity necrotizing fasciitis -MRI of foot (+)Ve for osteomyelitis -s/p debridement on 08/19: cx grew MRSA *DKA *Prostatic abscess -s/p transrectal aspiration and unroofing on 08/26 -cx MRSA, citrobacter (r-cefazolin) Enterococcus raffinosus (S-amp,pcn, vancomycin), bacteriodes *ERIKA *Hyponatremia *Diabetic neuropathy *Diabetes mellitus type 2 *Hypertension Plan: 08/25 -Discussed the possibility of amputation with david cavazos and family at bedside -Recommend JIMENA. -Repeat blood cultures x2 again today. -Continue to repeat serial blood cultures till b acteremia clears. -D/C clindamycin and vancomycin. -start on DAptomycin and Teflaro -check urine cx Discussed with Dr. Bass about MRI report 08/26 -plan for transrectal aspiration of abscess toda y -repeat blood cx are still (+)Ve; will repeat bl ood cx tomorrow -cont on daptomycin and Teflaro day #2 -Pt needs a JIMENA r/o endocarditis as pt has high grade persistent bacteremia -plan for Right BKA on 08/28 4/5 -s/p transrectal aspiration and unroofing of abs cess; cx GNR; will follow - repeat blood cx today --cont on daptomycin and Teflaro day #3 -Pt needs a JIMENA r/o endocarditis as pt has high grade persistent bacteremia -plan for Right BKA on 08/28 08/28 s/p right BKA -repeat blood cx sent today -cont on Daptomycin day #4 -NEeds a JIMENA r/o endocarditis -prostate abscess: Coag (+)V e staph, citrobacter and Enterococcus; on Merrem day #2 4/7 follow repeat blood cx from 08/28; pt need atleast 14 days from neg bloodcx needs a JIMENA r/o endocarditis ; if (+)Ve need 6 weeks , if not able to do willneed 4 weeks -prostate abscess cx MRSA,citrobacter, Enterococ cus; cont on Merrem and Daptomycin until cx are final day#3 out of 2-3 w eeks 09/01 - blood cx from 08/28 neg -pending a JIMENA; discussed [facility]di[facility] about doing a JIMENA; if (+)(Ve will need abx for 6 weeks endocarditis -change Merrem to Cefepime a nd Daptomycin to Vancomycin ; will need 28 days for treatment for prostate abscess til 5/3 Portions of this section wer e scribed by Jill Quintero on 09/01/22 at 1215 at 0859 RPT #:[id number] END OF REPORT 2022-09-01 11:35:00-00:00 [facility] Prog.Note-Vancomycin REPORT#:[id number] REPORT STATUS: Signed DATE:09/01/22 TIME: 1135 PATIENT: KARMA ROWLAND UNIT #: [id number] ROOM/BED: [place] [address] : 61 AGE: 56 SEX: M ATTEND: Mikayla Ramires MD ADM AUTHOR: Willie Rivera [facility] * ALL edits or amendments must be made on the el [employer]/computer document * See Addendum Vancomycin Vancomycin Medication Therapy Goal: AUC 400-600 mg*hr/L Indication for treatment: Empiric (now confirmed foot infection and bacter emia) Site of infection: known Current therapy: CEFEPIME AND VANCOMYCIN Day of therapy: 1 Weight: Actual weight (kg): 69.9 VS and I/O: Vital Signs Date Temp Pulse Resp B/P B/P Mean Pulse Ox FiO 2 08/29-09/01 97.5-98.6 78-99 10-22 110-195/56-88 0.0-124 90-100 72 hours ending at 0700 09/01 0700 08/31 19008/31 1900 Intake 400 270.00 1020.00 Total Output 808 493 3445 Total Balance 400 -500 -480.00 -3955.00 Intake, IV 50 30.00 80.00 Intake, 240 240 Oral Intake, 400 Oral Supplement Intake, 300 Other Intake, 350 Packed Cells Number 2 2 1 Bowel Movements Output, 0 Drainage Output, 878 323 7940 Urine 72 Hour I O Total 09/01 0708/31 Intake Total 400 1290.00 Output Total 500 5725 Balance 400 -500 -4435.00 Labs: Laboratory Test : 08/31 08/30 0642 0545 Chemistry BUN (7 - 18 mg/dL) 29 H 33 H Creatinine (0.6 - 1.3 mg/dL) 1.2 1.3 Hematology WBC (4.5 - 11.0 x10 3/uL) 8.7 12.6 H Drug admin history: Lab Lab Level SCr Info Surgical Rn Med Dose Inter action/Dialysis Date/Time Date/Time Notes: Treatment plan: consult, initiation of therapy Rationale: HPI: PT is a 56yr old male with history of diabe ozzy mellitus type 2, hypertension who was admitted with altered menta l status and right-sided foot infection. According to him, he noticed a bliste r on his right foot around 3 days prior to presentation o n 08/18. His foot got progressively more swollen and erythema extended proximally to his lateral foot and ankle. CT abdomen and pelvis with contrast is concerning for possible prostate abscess. CT of lower extremity without contrast s hows extensive soft tissue edema with mottled gas in the subcutaneous and intramu scular compartments of the foot, compatible with gas -forming infection. Patient's blood cultures hav e come back positive for MRSA in 2 out of 2 sets. PT has had persistent (+)Ve cx for MRSA 08/18- 08/22. He underwent a debridement of h is foot on 08/19 and cx grew MRSA. PT was started on Vancomycin and clindamycin on 08/18. His MRI show ed a prostate abscess. 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 Patient is s/p ICU stay with merrem/ daptomycin. ID adjusting regimen to cefe pime/vancomycin. Pharmacy consulted to dose vancomycin. Consulting provider: Dr. Wolff Indication: bacteremia Goal: AUC 400-600 AP: afebrile, WBC 8.7 (08/31), BUN 29, SCr 1.2, eCrCl 66 ml/min. UOP 1325 ml/24hrs. Micro: 08/26 prostate abscess: C farmeri, MRSA, E raffinosus. 08/18, 08/19, 08/21, 08/22, 08/25 blood MRSRA. 08/28 blood NGTD. Imaging: JIMENA planned. Regimen: Day 1. Patient received daptomycin on . Will skip loading dose of vancomycin and initiate maintenance dose at the time next daptomycin dose was due. Initiate 1gm vancomycin iv q24h. Monitoring: May take longer to achieve steady st ate since no load given. Plan for peak and trough after 4th dose for AUC calcu lations. Goal 400-600. Pharmacy will monitor and adjust dose as needed. Thanks for the consult. Electronically Signed by Willie Rivera [facility] on 09/01 at 1142 Addendum 1: 09/02/22 0840 by Willie Rivera [facility] afebrile, no CBC drawn today , SCR 1.2, eCrCl 61 ml/min. UOP 2075 ml/24hrs. Day 2. Initiated on 1gm vancomycin iv q24h. Trou gh prior to 4th dose. Possible transition to AUC if renal continues to be stable. Electronically Signed by Willie Rivera [facility] on 09/02 at 0847 RPT #:[id number] END OF REPORT 2022-09-01 11:08:00-00:00 [facility] ([facility]) Cardiology Progress Note REPORT#:[id number] REPORT STATUS: Signed DATE:09/01/22 TIME: 1108 PATIENT: KARMA ROWLAND UNIT #: [id number] ROOM/BED: [place] [address] : 61 AGE: 56 SEX: M ATTEND: Mikayla Ramires MD ADM AUTHOR: Rohit Benitez [facility] * ALL edits or amendments must be made on the [employer]/computer document * Rohit Benitez 09/01/22 1108: Subjective Chief complaint: foot infection Free Text Subj Notes Free Text Subj Notes: Patient seen and evaluated. Chart reviewed. No n ew symptoms, feeling well. Denies chest pain, palpitations, or shortness of breath. Telemetry: Sinus rhythm Objective General VS/I O: 24 hour I O ending at 0700: 09/01 0700 08/31 1900 Intake Total 400 Output Total Balance 400 Intake, IV 50 Intake, 350 Packed Cells Number 2 Bowel Movements Vital Signs: Date Time Temp Pulse Resp B/P B/P Pulse O2 O2 F low FiO2 Mean Ox Delivery Rate 09/01 1105 97.9 86 15 141/67 0.0 99 04/10 0826 80 94 04/10 0800 84 12 153/72 104 99 04/10 0708 98.4 83 12 129/63 0.0 99 04/10 0700 84 15 129/63 90 98 04/10 0600 81 115/59 83 99 04/10 0500 80 17 126/65 90 97 04/10 0435 98.5 79 16 126/65 85 99 04/10 0400 83 16 128/64 90 97 04/10 0300 86 14 126/59 85 97 04/10 0200 87 148/70 101 97 04/10 0100 91 12 141/67 97 97 04/10 0032 98.1 90 16 138/66 90 99 04/10 0000 88 16 138/66 95 98 04/09 2300 87 13 134/64 92 98 / 2200 85 10 132/63 90 97 04/09 2100 139/64 92 08/31 2059 89 10 96 / 2000 92 14 167/77 111 99 08/31 1929 98.3 94 16 151/69 96 100 Room air 08/31 1900 96 151/69 99 98 08/31 1835 97 14 180/85 122 99 08/31 1804 15 08/31 1800 95 184/86 124 99 / 1620 97.5 95 16 195/88 0.0 99 04/ 1435 97.9 90 14 150/70 98 08/31 1430 98.1 89 14 147/69 98 04 1425 97.8 90 15 157/83 99 08/31 1419 98.3 90 14 155/68 90 04/ 1208 98.1 91 12 145/66 0.0 98 PATIENT WEIGHT: Weight (lb): 154 Weight (oz): 1.65 Weight (kg): 69.900 Medications: Active Meds + DC'd Last 24 Hrs Vancomycin HCl (VANCOMYCIN HCL) 1,000 MG Q24H IV Sodium Chloride (SODIUM CHLORIDE 0.9%) 250 ML Cefepime HCl (MAXIPIME) 1 GM Q6H IV Sodium Chloride (SODIUM CHLORIDE) 10 ML Miscellaneous Information (VANCOMYCIN PHARMACY T O DOSE) 1 EACH ASDIR IV (CKD) Hydralazine HCl (APRESOLINE) 10 MG Q6H PRN PRN I V Sodium Polystyrene Sulfonate (KAYEXELATE) 30 GM ONCE ONE PO (DC) Insulin Glargine (Lantus/Semglee) 15 UNIT BEDTIM E SUBQ Insulin Human Lispro (HUMALOG) 5 UNIT AC SUBQ Lidocaine (LIDODERM) 1 PATCH DAILY TOPICAL Hydromorphone HCl (DILAUDID) 1 MG Q3H PRN PRN IV Hydromorphone HCl (DILAUDID) 0.5 MG Q3H PRN PRN IV Meropenem (MEROPENEM) 500 MG Q6H IV (DC) Sterile Water (WATER FOR INJECTION) 10 ML Daptomycin (CUBICIN 500MG) 700 MG Q24H IV (DC) Sodium Chloride (SODIUM CHLORIDE 0.9%) 50 ML Lorazepam (ATIVAN) 1 MG ONCE PRN IV Sodium Chloride (SODIUM CHLORIDE) 0 ASDIR PRN IV Insulin Human Lispro (HUMALOG) 0 AC HS SUBQ Dextrose/Water (DEXTROSE 10% IN WATER) 125 ML DIR PRN IV (CKD) Dextrose/Water (DEXTROSE 10% IN WATER) 250 ML DIR PRN IV (CKD) Glucagon (GLUCAGON) 1 MG ASDIR PRN IM Dextrose/Water (Dextrose 10% 1,000 mL) 1,000 ML ASDIR IV Acetaminophen (TYLENOL) 650 MG Q6H PRN PRN PO Bisacodyl (DULCOLAX) 10 MG DAILY PRN PRN RECTAL Docusate Sodium (COLACE) 100 MG Q12H PRN PRN PO Ondansetron HCl (ZOFRAN) 4 MG Q6H PRN PRN IV Heparin Sodium (HEPARIN 5000 UNITS/ML) 5,000 UNI T Q8HR SUBQ Physical Exam General appearance: alert, awake, oriented Neck: no bruit/NL carotids, no JVD Cardiovascular: CV assessment: abnormal S1/S2, regular rate and rhythm, no ectopy Respiratory: clear to auscultation, no distress Lower extremity: LE assessment: edema 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 X 3 Considered stroke alert: no Wound/incision: Location: right bka Psychiatry: normal affect, normal judgment/insig ht, normal mood Results Findings/Data: Laboratory Tests 09/01 09/01 08/31 08/31 08/31 0704 0345 1916 1618 1240 Chemistry POC Glucose (70 - 110 MG/DL) 145 H 176 H 163 H 76 Total Creatine Kinase (46 - 171 Units/L) 79 08/31 1203 Chemistry POC Glucose (70 - 110 MG/DL) 44 L Laboratory Tests 08/31 1810 Hematology Hgb (12.5 - 16.9 g/dL) 9.1 L Hct (37.5 - 50.7 %) 28.2 L Laboratory Tests 09/01 0852 Serology SARS-CoV-2 Ag (Rapid) (Negative) Negative Diagnosis, Assessment Plan Free Text DxA P Notes Free Text DxA P Notes: Impression: 1. Preop eval/cardiac clearance 2. Infected right foot gas gangrene 3. DKA 4. Sepsis 5. Hypertension 6. Anemia Recommendation: Patient presented for evalua tion of altered mental status, weakness and elevated blood sugar. Diagnosed with DKA and seps is. 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 Known cardiac history of hypertensio n and hyperlipidemia. Denies prior history of CAD, CHF or arrhythmia. EKG abn ormal, NSR with anterior infarct. Vital signs stable. No prior cardiac wo rk-up. -Check echocardiogram -Monitor telemetry for arrhythmia -Monitor blood pressure trend -Wound care and IV antibiotic therapy -Supportive care 08/19: Patient doing better postop, blood pressur e control, currently in sinus rhythm, lower extremity artery Doppler negative for any significant PAD, continue current management from primary team an d podiatry service, continue monitor on telemetry for arrhythmia postop, supp ortive care, discussed with patient and family as well as RN, will follow. 08/21: Patient overall doing well, awake and irish rt today. Blood pressure well controlled. Currently in sinus rhythm to sinus t achycardia, will continue to monitor. Echocardiogram shows LVEF of 55 to 69%, no regional wall motion abnormalities, grade 1 diastolic dysfunction, an d mildly dilated LA. continue antibiotic therapy and wound care. Supportive ca re. Plan of care discussed with patient, RN and Dr. Parham. 08/22: No Significant changes from cardiac stand point. Vital signs stable. Telemetry monitoring reviewed, sinus rhythm to s inus tachycardia. We will continue monitor, sinus tachycardia likely relat ed to underlying infection. Continue wound care and antibiotic therapy. Supp ortive care. Plan of care discussed with patient, RN and Dr. Parham. 08/23: Stable cardiac status. Blood pressure and heart rate well controlled. Continue monitor telemetry. Continue wound care. Plan to transfer to floor. Supportive care. Plan of care discussed with lori hart RN and Dr. Parham. 08/24: Patient overall doing well, remains stabl e from cardiac standpoint. Blood pressure and heart rat e well controlled. No new events noted on telemetry monitoring. Remains in sinus rhythm by physical examination. Continue wound care. Supportive care. Plan of care discussed patient, RN and Dr. Parham. 08/25: Remain stable from cardiac standpoint. Bl ood pressure well controlled. Currently in sinus rhythm by physical examinatio n. Possible plan for another wound debridement today. Pain management and sup portive care. Plan of care discussed with patient, RN and Dr. Parham. 08/26: Patient remains in sinus rhythm. Blood pr essure well controlled. Plan for aspiration of prostatic cyst today. Plan for right BKA on . We will continue monitor patient postoperatively. C ontinue antibiotic therapy. Supportive care. Plan of care discussed with lori hart RN and Dr. Parham. 08/27: Patient doing well st atus post aspiration of prostatic abscess and TURP. Currently on continuous bladder irrigation. Hemo dynamically stable. Blood pressure and heart rate well controlled. Remains in normal sinus rhythm. Plan for right BKA tomorrow. Melia red from cardiac standpoint to proceed with planned surgery. Supportive care. Plan of care discussed with patient, RN and Dr. Parham. 08/28: Stable cardiac status. Plan for right BKA today. Continue antibiotic therapy and wound care. Will monitor patient pos toperatively for arrhythmia. Continue monitor telemetry. Pain management and supportive care. Plan of care discussed with RN and Dr. Parham. 08/29: Patient doing well, blood pressure controll ed, s/p right BKA, stable cardiac status, continue current management, nhan l follow. 09/01: Patient with ongoing bacteremia, ID recomm end JIMENA to rule out endocarditis. Continue antibiotic therapy and wo und care. Blood pressure and heart rate well controlled. Remains in normal si nus rhythm. Plan for JIMENA tomorrow, further recommendation will be based o n findings. Supportive care. Plan of care discussed with patient, RN and Dr. Parham. Gianni Parham 09/06/22 1631: Diagnosis, Assessment Plan Additional comments: Patient was seen and examined at bedside , agree with above assessment and plan as documented by nurse practitioner with modific ations. We will proceed with JIMENA tomorrow. Continue supportive care. Will fol low. Electronically Signed by Rohit Benitez NP on 0 09/01/22 at 1811 at 1637 RPT #:[id number] END OF REPORT 2022-09-01 10:17:00-00:00 [facility] Hospitalist Progress Note REPORT#:[id number] REPORT STATUS: Signed DATE:09/01/22 TIME: 1017 PATIENT: KARMA ROWLAND UNIT #: [id number] ROOM/BED: [place] [id number] : 61 AGE: 56 SEX: M ATTEND: Mikayla Ramires MD ADM AUTHOR: Tessie Junior * ALL edits or amendments must be made on the el [employer]/computer document * Subjective Chief complaint: AMS and right foot infection. s/p extensive debridement. s/p BKA. pain controlled Objective General VS/I O: Vital Signs: Date Time Temp Pulse Resp B/P B/P Pulse O2 O2 F low FiO2 Mean Ox Delivery Rate 09/01 1105 97.9 86 15 141/67 0.0 99 04/10 0826 80 94 04/10 0800 84 12 153/72 104 99 04/10 0708 98.4 83 12 129/63 0.0 99 04/10 0700 84 15 129/63 90 98 04/10 0600 81 115/59 83 99 04/10 0500 80 17 126/65 90 97 04/10 0435 98.5 79 16 126/65 85 99 04/10 0400 83 16 128/64 90 97 04/10 0300 86 14 126/59 85 97 04/10 0200 87 148/70 101 97 04/10 0100 91 12 141/67 97 97 04/10 0032 98.1 90 16 138/66 90 99 04/10 0000 88 16 138/66 95 98 /09 2300 87 13 134/64 92 98 / 2200 85 10 132/63 90 97 / 2100 139/64 92 08/31 2059 89 10 96 08/31 2000 92 14 167/77 111 99 08/31 1929 98.3 94 16 151/69 96 100 Room air 08/31 1900 96 151/69 99 98 08/31 1835 97 14 180/85 122 99 08/31 1804 15 08/31 1800 95 184/86 124 99 08/31 1620 97.5 95 16 195/88 0.0 99 24 hour I O ending at 0700: 09/01 0700 08/31 1900 Intake Total 400 Output Total Balance 400 Intake, IV 50 Intake, 350 Packed Cells Number 2 Bowel Movements PATIENT WEIGHT: Weight (lb): 154 Weight (oz): 1.65 Weight (kg): 69.900 Medications: Active Meds + DC'd Last 24 Hrs Sodium Chloride (SODIUM CHLORIDE) 10 ML BID IV Benzocaine/Butamben/Tetracaine HCl (CETACAINE) 1 APPLIC ASDIR PRN MM ( CKD) Flumazenil (ROMAZICON) 0.2 MG ASDIR PRN IV Midazolam HCl (VERSED) 2 MG ASDIR PRN IV Naloxone HCl (NARCAN) 0.4 MG ASDIR PRN IV Vancomycin HCl (VANCOMYCIN HCL) 1,000 MG Q24H IV Sodium Chloride (SODIUM CHLORIDE 0.9%) 250 ML Lidocaine HCl (LIDOCAINE 1% 5ML) 5 ML ONCE ONE L OCAL (DC) Sodium Chloride (SODIUM CHLORIDE) 10 ML ASDIR NV N IV Cefepime HCl (MAXIPIME) 1 GM Q6H IV Sodium Chloride (SODIUM CHLORIDE) 10 ML Miscellaneous Information (VANCOMYCIN PHARMACY T O DOSE) 1 EACH ASDIR IV (CKD) Hydralazine HCl (APRESOLINE) 10 MG Q6H PRN PRN IV Insulin Glargine (Lantus/Semglee) 15 UNIT BEDTIM E SUBQ Insulin Human Lispro (HUMALOG) 5 UNIT AC SUBQ Lidocaine (LIDODERM) 1 PATCH DAILY TOPICAL Hydromorphone HCl (DILAUDID) 1 MG Q3H PRN PRN IV Hydromorphone HCl (DILAUDID) 0.5 MG Q3H PRN PRN IV Meropenem (MEROPENEM) 500 MG Q6H IV (DC) Sterile Water (WATER FOR INJECTION) 10 ML Daptomycin (CUBICIN 500MG) 700 MG Q24H IV (DC) Sodium Chloride (SODIUM CHLORIDE 0.9%) 50 ML Lorazepam (ATIVAN) 1 MG ONCE PRN IV Sodium Chloride (SODIUM CHLORIDE) 0 ASDIR PRN IV Insulin Human Lispro (HUMALOG) 0 AC HS SUBQ Dextrose/Water (DEXTROSE 10% IN WATER) 125 ML DIR PRN IV (CKD) Dextrose/Water (DEXTROSE 10% IN WATER) 250 ML DIR PRN IV (CKD) Glucagon (GLUCAGON) 1 MG ASDIR PRN IM Dextrose/Water (Dextrose 10% 1,000 mL) 1,000 ML ASDIR IV Acetaminophen (TYLENOL) 650 MG Q6H PRN PRN PO Bisacodyl (DULCOLAX) 10 MG DAILY PRN PRN RECTAL Docusate Sodium (COLACE) 100 MG Q12H PRN PRN PO Ondansetron HCl (ZOFRAN) 4 MG Q6H PRN PRN IV Heparin Sodium (HEPARIN 5000 UNITS/ML) 5,000 UNI T Q8HR SUBQ Physical Exam Head/Eyes: normocephalic ENT: moist mucosal membranes Neck: no JVD Cardiovascular: regular rate rhythm, no heave Respiratory: aerating well, clear to auscultatio n, symmetric expansion, no distress Abdomen: non-tender, normal bowel sounds, soft, no distention Genitourinary: no bladder distention Extremities: R foot in dressing 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 X 3, 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 Considered stroke alert: no Skin: no rash Psychiatry: normal affect, normal judgment/insig ht, normal mood Results Findings/Data: Laboratory Tests 09/01 09/01 09/01 08/31 08/31 1104 0704 [id number] 1916 1618 Chemistry POC Glucose (70 - 110 MG/DL) 118 H 145 H 176 H 163 H Total Creatine Kinase (46 - 171 79 Units/L) Laboratory Tests 08/31 1810 Hematology Hgb (12.5 - 16.9 g/dL) 9.1 L Hct (37.5 - 50.7 %) 28.2 L Laboratory Tests 09/01 0852 Serology SARS-CoV-2 Ag (Rapid) (Negative) Negative Diagnosis, Assessment Plan Free Text DxA P Notes Free text DxA P notes: DKA DM 2, poorly controlled severe gas gangrene, right foot/necrotizing fasc itis - s/p BKA MRSA bacteremia ERIKA severe hyponatremia likely due to combination of severe hyperglycemia and dehydration from DKA sepsis due to foot infection DM neuropathy HTN anemia, acute due to blood loss left calf hematoma prostatic abscess with Citrobacter and enterococ cus Plans: - admit to ICU - continue IV fluids aggressively - monitor lytes and AG - IV insulin drip for now until gap closes - endo eval - keep on Vancomycin and Zosyn - podiatry eval - d.w Wojciech Hernandez - likely will need debridement - MRI of foot ordered - endo eval for management of DM. - HgbA1c of 13.4 - Urology consulted for hypodensity in prostate - ? abscess, not likely. not much symptoms - lovenox for VTE - check iron panel, TSH - fall precautions - not much pain needs likely due to neuropathy 08/19/2022 - blood cultures showing MRSA - Echo ordered - continue Vancomycin/Clinda and Meropenem. Id following - podiatry planning for I D today. Surgery on s [place]andby if needed to further debride his lower leg vs amputation. - WBC improving - will type and cross for blood and transfuse i f less than 7 gms - d.w at bedside - patient and is aware that he may require amputation if his tissues are non viable - remains on Insulin drip. blood sugars in the 200-300 range. AG has closed. endocrine is following. - keep in ICU 08/20/2022 - s/p extensive I D of right foot. - tissue cx showing MRSA - follow echo results - WBC remains elevated - continue IV antibiotics - MRI of pelvis pending to eval prostate lesion - MRI of foot pending to eval for osteo. - wean off insulin drip. Subq insulin and slidi ng scale. endo following - pain controlled - will likely need wound vac and half-way IV a ntibiotic therapy - d/w at bedside - PT/OT 08/21/2022 - continue IV antibitoics - wound care with pulse lavage. will likely nee d wound vac at some point - off insulin drip - tolerating diet. d/c IV fluids - pain controlled - awaiting MRI of his foot and pelvis - fall precautions - transfer to floor 08/22/2022 - continue Vanco and Clinda IV - pulse lavage for wound care - pain control - blood sugars reasonably controlled - mobilize - fall precautions - follow hgb and transfuse as needed - awaiting floor transfer 08/23/2022 - transfuse blood for anemia. no overt blood lo ss - continue IV antibiotics - mobilize - pulse lavage to wound. ? wound vac - continue to monitor blood sugars - floor transfer - d/w 08/24/2022 - follow hgb and transfuse as needed - IV antibiotics - anesthesia consult for MRI - blood sugars ok - pulse lavage - await podiatry eval for wound care - ? wound vac - d.w at bedside 08/25/22 Continue abx (Dapto and Teflaro) as per ID Updated Urology on MRI resul ts, Dr. Bass will review images and discuss with family for possible prostate/seminal vesicle abs cess Cont wound care as per Podiatry, may have debrid ement today BP and BS well controlled K+ high, repeat level Hgb 7.3 stable Discussed with at bedside 08/26/2022 - hgb low. will transfuse 2 units - d.w Dr. Pedersen - patient has lost so much ti ssues in his foot that his potential for wound closure and usabilit y of his foot is poor. Recommendations made to proceed with BKA - continue to monitor blood sugars - IV antibitoics - wound care - urology planning for aspiration of prostatic cyst seen on MRI. PSA normal - OOB 08/27/22 s/p transfusion planned for BKA IV antibiotics Wound care DM - managed with insulin DVT prophylaxis 08/28/2022 - noted left leg swelling and pain - patient on Heparin SQ for VTE. will order sta t venous US - planning for right BKA today - continue IV antibiotics per ID - follow blood sugars closely - will need PT/OT and possible rehab post surge ry - d/w at bedside 08/29/2022 - US showing possible hematoma in left calf. no DVT - s/p BKA - no phantom pain at this time - continue IV antibiotics - PT/OT. will need rehab - PM R eval - continue Meropenem and Daptomycin per ID - cultures from prostate noted - ok to transfer to floor - follow hgb and transfuse if hgb less than 7 g ms - Heparin SQ for VTE 08/30/22 s/p BKA. doing well IV antibiotics PT/ OT possible rehab monitor hb transfer to floor / IMCU 08/31/2022 S/p BKA doing okay pain is controlled IV antibiotic therapy PT OT Noted hemoglobin low at 6.8 will transfuse monit or PRBC Potassium was high as well give Kayexalate Recheck lab work later today discussed with nurs e. If stable overall in the nex t 24 hours can be transferred/downgraded to regular floor. DM control. 09/01/22 VSS on RA labs pending- hyperkalemia yesterday -s/p kayexa late X1 Continue with Vanc and Cefepine per ID Needs JIMENA prior to discharge Cardiology on board. Approved to rehab, can transfer after JIMENA and BM P at 1543 RPT #:[id number] END OF REPORT 2022-09-01 10:14:00-00:[address] [facility] ([facility]) Hospitalist Discharge Summary REPORT#:[id number] REPORT STATUS: Signed DATE:09/01/22 TIME: 1014 PATIENT: KARMA ROWLAND UNIT #: [id number] ROOM/BED: [place] [id number] : 61 AGE: 56 SEX: M ATTEND: Mikayla Ramires MD ADM AUTHOR: Tessie Junior * ALL edits or amendments must be made on the el [employer]/computer document * General Information Discharge date: 09/01/22 Discharge diagnosis: MRSA bacteremia/spesis 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 and necrotizing fasciitis S/p surgical debridement and washout S/p Right BKA DM 2, poorly controlled Hyperkalemia Hospital course: DKA DM 2, poorly controlled severe gas gangrene, right foot/necrotizing fasc itis - s/p BKA MRSA bacteremia ERIKA severe hyponatremia likely due to combination of severe hyperglycemia and dehydration from DKA sepsis due to foot infection DM neuropathy HTN anemia, acute due to blood loss left calf hematoma prostatic abscess with Citrobacter and enterococ cus Plans: - admit to ICU - continue IV fluids aggressively - monitor lytes and AG - IV insulin drip for now until gap closes - endo eval - keep on Vancomycin and Zosyn - podiatry eval - d.w Wojciech Hernandez - likely will need debridement - MRI of foot ordered - endo eval for management of DM. - HgbA1c of 13.4 - Urology consulted for hypodensity in prostate - ? abscess, not likely. not much symptoms - lovenox for VTE - check iron panel, TSH - fall precautions - not much pain needs likely due to neuropathy 08/19/2022 - blood cultures showing MRSA - Echo ordered - continue Vancomycin/Clinda and Meropenem. Id following - podiatry planning for I D today. Surgery on s [place] if needed to further debride his lower leg vs amputation. - WBC improving - will type and cross for blood and transfuse i f less than 7 gms - d.w at bedside - patient and is aware that he may require amputation if his tissues are non viable - remains on Insulin drip. blood sugars in the 200-300 range. AG has closed. endocrine is following. - keep in ICU 08/20/2022 - s/p extensive I D of right foot. - tissue cx showing MRSA - follow echo results - WBC remains elevated - continue IV antibiotics - MRI of pelvis pending to eval prostate lesion - MRI of foot pending to eval for osteo. - wean off insulin drip. Subq insulin and slidi ng scale. 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 will likely nee d wound vac at some point - off insulin drip - tolerating diet. d/c IV fluids - pain controlled - awaiting MRI of his foot and pelvis - fall precautions - transfer to floor 08/22/2022 - continue Vanco and Clinda IV - pulse lavage for wound care - pain control - blood sugars reasonably controlled - mobilize - fall precautions - follow hgb and transfuse as needed - awaiting floor transfer 08/23/2022 - transfuse blood for anemia. no overt blood lo ss - continue IV antibiotics - mobilize - pulse lavage to wound. ? wound vac - continue to monitor blood sugars - floor transfer - d/w 08/24/2022 - follow hgb and transfuse as needed - IV antibiotics - anesthesia consult for MRI - blood sugars ok - pulse lavage - await podiatry eval for wound care - ? wound vac - d.w at bedside 08/25/22 Continue abx (Dapto and Teflaro) as per ID Updated Urology on MRI resul ts, Dr. Bass will review images and discuss with family for possible prostate/seminal vesicle abs cess Cont wound care as per Podiatry, may have debrid ement today BP and BS well controlled K+ high, repeat level Hgb 7.3 stable Discussed with at bedside 08/26/2022 - hgb low. will transfuse 2 units - d.w Dr. Pedersen - patient has lost so much ti ssues in his foot that his potential for wound closure and usabilit y of his foot is poor. Recommendations made to proceed with BKA - continue to monitor blood sugars - IV antibitoics - wound care - urology planning for aspiration of prostatic cyst seen on MRI. PSA normal - OOB 08/27/22 s/p transfusion planned for BKA IV antibiotics Wound care DM - managed with insulin DVT prophylaxis 08/28/2022 - noted left leg swelling and pain - patient on Heparin SQ for VTE. will order sta t venous US - planning for right BKA today - continue IV antibiotics per ID - follow blood sugars closely - will need PT/OT and possible rehab post surge ry - d/w at bedside 08/29/2022 - US showing possible hematoma in left calf. no DVT - s/p BKA - no phantom pain at this time - continue IV antibiotics - PT/OT. will need rehab - PM R eval - continue Meropenem and Daptomycin per ID - cultures from prostate noted - ok to transfer to floor - follow hgb and transfuse if hgb less than 7 g ms - Heparin SQ for VTE 08/30/22 s/p BKA. doing well IV antibiotics PT/ OT possible rehab monitor hb transfer to floor / IMCU 08/31/2022 S/p BKA doing okay pain is controlled IV antibiotic therapy PT OT Noted hemoglobin low at 6.8 will transfuse monit or PRBC Potassium was high as well give Kayexalate Recheck lab work later today discussed with tamika kendall. If stable overall in the nex t 24 hours can be transferred/downgraded to regular floor. DM control. Pt. condition on discharge: fair Free Text DxA P Notes Free text DxA P notes: DKA DM 2, poorly controlled severe gas gangrene, right foot/necrotizing fasc itis - s/p BKA MRSA bacteremia ERIKA severe hyponatremia likely due to combination of severe hyperglycemia and dehydration from DKA sepsis due to foot infection DM neuropathy HTN anemia, acute due to blood loss left calf hematoma prostatic abscess with Citrobacter and enterococ cus Plans: - admit to ICU - continue IV fluids aggressively - monitor lytes and AG - IV insulin drip for now until gap closes - endo eval - keep on Vancomycin and Zosyn - podiatry eval - d.w Wojciech Hernandez - likely will need debridement - MRI of foot ordered - endo eval for management of DM. - HgbA1c of 13.4 - Urology consulted for hypodensity in prostate - ? abscess, not likely. not much symptoms - lovenox for VTE - check iron panel, TSH - fall precautions - not much pain needs likely due to neuropathy 08/19/2022 - blood cultures showing MRSA - Echo ordered - continue Vancomycin/Clinda and Meropenem. Id following - podiatry planning for I D today. Surgery on s [place] if needed to further debride his lower leg vs amputation. - WBC improving - will type and cross for blood and transfuse i f less than 7 gms - d.w at bedside - patient and is aware that he may require amputation if his tissues are non viable - remains on Insulin drip. blood sugars in the 200-300 range. AG has closed. endocrine is following. - keep in ICU 08/20/2022 - s/p extensive I D of right foot. - tissue cx showing MRSA - follow echo results - WBC remains elevated - continue IV antibiotics - MRI of pelvis pending to eval prostate lesion - MRI of foot pending to eval for osteo. - wean off insulin drip. Subq insulin and slidi ng scale. 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 will likely nee d wound vac at some point - off insulin drip - tolerating diet. d/c IV fluids - pain controlled - awaiting MRI of his foot and pelvis - fall precautions - transfer to floor 08/22/2022 - continue Vanco and Clinda IV - pulse lavage for wound care - pain control - blood sugars reasonably controlled - mobilize - fall precautions - follow hgb and transfuse as needed - awaiting floor transfer 08/23/2022 - transfuse blood for anemia. no overt blood lo ss - continue IV antibiotics - mobilize - pulse lavage to wound. ? wound vac - continue to monitor blood sugars - floor transfer - d/w 08/24/2022 - follow hgb and transfuse as needed - IV antibiotics - anesthesia consult for MRI - blood sugars ok - pulse lavage - await podiatry eval for wound care - ? wound vac - d.w at bedside 08/25/22 Continue abx (Dapto and Teflaro) as per ID Updated Urology on MRI resul ts, Dr. Bsas will review images and discuss with family for possible prostate/seminal vesicle abs cess Cont wound care as per Podiatry, may have debrid ement today BP and BS well controlled K+ high, repeat level Hgb 7.3 stable Discussed with at bedside 08/26/2022 - hgb low. will transfuse 2 units - d.w Dr. Pedersen - patient has lost so much ti ssues in his foot that his potential for wound closure and usabilit y of his foot is poor. Recommendations made to proceed with BKA - continue to monitor blood sugars - IV antibitoics - wound care - urology planning for aspiration of prostatic cyst seen on MRI. PSA normal - OOB 08/27/22 s/p transfusion planned for BKA IV antibiotics Wound care DM - managed with insulin DVT prophylaxis 08/28/2022 - noted left leg swelling and pain - patient on Heparin SQ for VTE. will order sta t venous US - planning for right BKA today - continue IV antibiotics per ID - follow blood sugars closely - will need PT/OT and possible rehab post surge ry - d/w at bedside 08/29/2022 - US showing possible hematoma in left calf. no DVT - s/p BKA - no phantom pain at this time - continue IV antibiotics - PT/OT. will need rehab - PM R eval - continue Meropenem and Daptomycin per ID - cultures from prostate noted - ok to transfer to floor - follow hgb and transfuse if hgb less than 7 g ms - Heparin SQ for VTE 08/30/22 s/p BKA. doing well IV antibiotics PT/ OT possible rehab monitor hb transfer to floor / IMCU 08/31/2022 S/p BKA doing okay pain is controlled IV antibiotic therapy PT OT Noted hemoglobin low at 6.8 will transfuse monit or PRBC Potassium was high as well give Kayexalate Recheck lab work later today discussed with tamika kendall. If stable overall in the nex t 24 hours can be transferred/downgraded to regular floor. DM control. Med Rec Med Rec Discharge meds: Start taking the following new medications: HEPARIN SODIUM,PORCINE (HEPARIN SOD 1ML) 5,000 U NIT/ML VIAL 5,000 UNIT SUBCUTANEOUS EVERY 8 HOURS. Days = 14 Qty = 42 No Refills hydrALAZINE (APRESOLINE) 20 MG/ML AMPUL 10 MILLIGRAM INTRAVENOUS EVERY 6 HOURS NEEDE D. as needed for SBP GREATER THAN 160 Days = 10 No Refills DOCUSATE SODIUM (COLACE) 100 MG CAP 100 MILLIGRAM ORAL EVERY 12 HR NEEDED. as ne eded for CONSTIPATION Days = 14 No Refills BISACODYL (DULCOLAX) 10 MG SUPP.RECT 10 MILLIGRAM RECTAL. DAILY NEEDED. as needed for CONSTIPATION, SECOND LINE Days = 14 No Refills ONDANSETRON (ONDANSETRON) 4 MG/2 ML VIAL 4 MILLIGRAM INTRAVENOUS EVERY 6 HOURS NEEDED . as needed for N/V IF NOT ON PO DIET Days = 14 No Refills INSULIN GLARGINE (LANTUS) 100 UNIT/ML VIAL 15 UNIT SUBCUTANEOUS BEDTIME. Days = 14 No Refills INSULIN LISPRO (HumaLOG) 100 UNIT/ML VIAL 0 UNIT SUBCUTANEOUS BEFORE MEALS AND AT BEDTIME . Days = 14 No Refills Instructions: Check printout INSULIN LISPRO (HumaLOG) 100 UNIT/ML VIAL 5 UNIT SUBCUTANEOUS BEFORE MEALS. Days = 14 No Refills DAPTOmycin (CUBICIN) 500 MG VIAL 750 MILLIGRAM INTRAVENOUS EVERY 24 HOURS. Days = 7 No Refills MEROPENEM (MERREM) 500 MG VIAL 500 MILLIGRAM INTRAVENOUS EVERY 6 HOURS. Days = 3 No Refills Objective VS/I O Last Documented: Result Date Time Pulse Ox 94 09/01 825 Pulse 80 09/01 825 B/P 153/72 09/01 08 B/P Mean 104 09/01 08 Resp 12 09/01 08 Temp 98.4 09/01 0708 O2 Delivery Room air 08/31 1929 O2 Flow Rate 7 08/28 1222 24 hour I O ending at 0700: 09/01 0700 08/31 1900 Intake Total 400 Output Total Balance 400 Intake, IV 50 Intake, 350 Packed Cells Number 2 Bowel Movements Head/Eyes: normocephalic ENT: moist mucosal membranes Neck: no JVD Cardiovascular: regular rate rhythm, no heave Respiratory: aerating well, clear to auscultatio n, symmetric expansion, no distress Abdomen: non-tender, normal bowel sounds, soft, no distention Genitourinary: no bladder distention Extremities: R foot in dressing 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 X 3, 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 Considered stroke alert: no Skin: no rash Psychiatry: normal affect, normal judgment/insig ht, normal mood Results Findings/Data: Laboratory Tests: 09/01 09/01 09/01 08/31 08/31 0852 0704 0345 191 1810 Chemistry POC Glucose (70 - 110 MG/DL) 145 H 176 H Total Creatine Kinase (46 - 171 79 Units/L) Hematology Hgb (12.5 - 16.9 g/dL) 9.1 L Hct (37.5 - 50.7 %) 28.2 L Serology SARS-CoV-2 Ag (Rapid) (Negative) Negative 08/31 08/31 08/31 1618 1240 1203 Chemistry POC Glucose (70 - 110 MG/DL) 163 H 76 44 L Discharge Instructions PCP PCP follow-up: PCP: No Primary or Family Physician Discharge to: Inpatient Rehab Facility Additional Discharge Routines: None Diet: Diabetic at 1017 RPT #:[id number] END OF REPORT 2022-09-01 09:12:00-00:[address] [facility] ([facility]) Rehab Preadmission Screen REPORT#: REPORT STATUS: DATE:09/01/22 TIME: 911 PATIENT: KARMA ROWLAND UNIT #: ROOM: BED: : 63 AGE: 56 SEX: M ATTEND: Fredy Vences MD PROJECTED ADM AUTHOR: Mack Vences MD REP SRV REP SRV TM: 0912 * ALL edits or amendments must be made on the el ectronic/computer document * IRF Preadmission Screen Information From [facility] CRS PAS documentation: The data set between the solid lines has been im ported from [facility] PAS documentation. PREADMISSION INFORMATION: DEMOGRAPHICS: Assessment date: 09/01/22 Assessment time: 05 Patient has an Advanced Directive: No Content of advance directive/living will/plan of care: Copy of advance directive on chart: Referring physician: DR. VENCES Primary care provider: NONE LISTED Consulting physician(s): DR. VENCES REHAB DR. RAMIRES ATTENDING DR. EVER LEROY SURGICAL DR. CHAPIN MEDICAL DR. Tapan WREN LIZBETH PEDERSEN MEDICAL DR. OSWALD SURGICAL Referral contact name: RAYSHAWN SIMPSON Referral contact number: [phone] Referring setting: Acute hospital Room number: 458 IMPAIRMENT GROUP: Impairment group: Amp bilat LE below knee Etiologic diagnosis: GAS GANGRENE RIGHT FOOT AND ANKLE REVIEW OF MED CONDITIONS: Date of onset: 08/18/22 Current surgery date and type: 08/28/22 RIGHT BE LOW KNEE AMPUTATION 08/19/22 irrigation and debridement right foot Active comorbid conditions: POST OP ANEM IA, ERIKA, DM, HTN, DIABETIC NEUROPATHY, HLD Past medical and surgical history: DM 2 since ag e 33 DM neuropathy HTN hyperlipidemia Had major surgery within 100 days of admission: Yes Risk for medical/clinical complications: Anemia, Arrhythmia, BP fluctuation, Blood sugar fluctuation, Cardiac instability, Co nstipation, DVT, Depression, Electrolyte imbalance, Hypoxia, Incisional dehis cence, Infection, Injury d/t falls, Nutritional compromise, Pain, Renal insuf f/failure, Skin breakdown, Respiratory insufficiency, Urinary retention Acute hospital stay summary: 56 yo HAM with long h/o DM, and HTN who was admitted for fever, flulike symptoms and altered mental status on 08/18. He was doing well until about 3 days prior to a dmission when he noted blister to have formed on the dorsum of his foot. His foot start ed progressively getting more swollen and the blisters sta rted enlarging and extending to his lateral foot and ankle. He started feeling weak and nauseated. He was noted to have altered mentation and was brought to our ER. He was noted to be in DKA with Blood sugars greater than 600. [facility] and infection. He was treated in ICU for sepsis and DKA. He underwent incisional and excisional debridement of right foot and right ankle by podiatry. Patient also found to have prostate abscess underwent transrectal ultrasound aspiration of abscess and transurethral resection o f prostate and unroofing of abscess by urology Dr. Bass. Endocrinology treated the D KA and blood sugars much improved. Patient's right foot was not s alvageable and patient underwent right BKA by Dr. LEROY on 08/28. Patient blood cultures showed MRSA. Patient continued on antibiotics as per ID. MRI of the p francie and foot completed. Patient required multiple PRBCs for anemia. Mira ent was found to have a possible small hematoma of the left calf on ultr asound. He complains of pain and swelling of the left ank le. Patient hemodynamically stable and plans are to be transferred to stepdown unit. He is o n heparin subcu for VTE. After surgery he is now being mobilized by PT and OT. He is we aring a nestor-tech orthotic for right knee/BKA protection. Hemovac drain still i n place. Prior to admission the patient was independent living in a single-story house with his spouse with a few steps up to front and back door. 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 is at bedside. Patient denies nausea, vomiting, fever, chills, chest pain, shortness of breath with dizziness. He is requir ing IV Dilaudid for pain control. Mental status back to baseline. Pt is progressing slowly with therapy d/t weakness and pain, self care deficit , decreased endurance and balance, and decreased functional mobility. Pt requiring acut e inpt rehab for multidisciplinary team of nursing, therapy, and physicians. Pt is willing and able to partici- kathleen in 3 hr/day inpt rehab to d/c home safely. Pt's prior level of function was independent. PREADMIT VITALS: Date/Time 09/01/22 0435 09/01/22 0500 Temp F Temp C 36.9 Pulse 79 80 RR 16 17 BP 126/65 126/65 SPO2% 99 97 Ht ft 5 Ht in 6 Wt lbs 154.000 BMI SUPPORTING DIAGNOSTICS/LABS/RADIOLOGY/CARDIOLOGY : Date: 08/31/22 08/31/22 WBC: 8.7 HGB: 9.1 6.9 HCT: 28.2 21.7 Ca: 7.2 7.3 Na: 136 136 K+: 5.4 5.4 Glu: 163 129 M.01 BUN: 29 29 Creat: 1.2 1.2 Tot protein: Alb: PTT: PT: INR: PLT: 208 Additional labs: Cultures: 08/28/22 BLOOD NO GROWTH AFTER 72 HOUR S 08/26/22 ABCESS MODERATE NUMBER OF GRAM POSITIVE COCCI RARE GRAM POSITIVE BACILLI MODERATE NUMBER OF WBC'S ORGANISM CITROBACTER FARMERI, ETEROCOCCUS RAFFIN OSUS, STAPH AUREUS METHICILLIN RESIST 08/25/22 URINE CONTAMI NATED 08/25/22 BLOOD COAG POS STAPHYLOCCUS 08/22/22 B LOOD GRAM POS COCCI/ STAPH/METHICILLIN RESIST 08/18/22 WOUND/FOOT STA PH AUREUS/MRSA Imagin08/28/22 FLUOROSCOPY RADIATION DOSE MET RICS: Fluoroscopy time (seconds): seconds= 1.1 Number of fluoro sp ot images: images= 2 Reference air kerma (APOLONIA): 0.7 mGy FINDINGS: Pro cedural imaging: Fluoroscopic assistance was provided. Radiologi st was not present during the procedure. Intraoperative review of these im ages was performed by the operating physician. Please refer to the procedu re report for further details. Notes: Fluoroscopy supervised by facili ty personnel. See also separate procedure report. IMPRESSION: Fluorosc opy dosage documentation. See also separate procedure notes . 08/28/22 VENOUS DOPPLER IMPRESSION: 1. No evidence of venous thr ombosis involving left lower extremity. 2. Approximately 8 x 2 x 1.3 cm complex fluid collection along the left upper calf proba caridad representing a small hematoma. 08/21/22 PELVIS MRI IMPRESSION: 1. Mar kedly limited examination by motion artifact abdominal breathi ng, severely lowering sensitivity and specificity of the study. 2. Rou ghly 4.7 cm area of liquefaction in the left seminal vesicle susp icious for abscess, inseparable from the left posterolateral prostat e capsule and peripheral zone. Recommend MR follow-up after antibiotic th erapy to assess for evolution. 3. Normal size prostate with otherwis e preserved transitional zone and right peripheral zone signal. 4. No pe lvic adenopathy or free fluid. 5. Unremarkable bladder. 08/21/22 EX TREMITY MRI Impression: 1. Large areas of deep ulceration of the medial and lateral soft tissues of the hindfoot. 2. Findings compat ible with osteomyelitis of the talus, calcaneus, and navic ular bone. 3. Lobulated, ill-defined 3.2 x 9.7 x 1.7 cm fluid collection in the plantar musculature of the foot. 4. 1.2 x 1.9 x 0.6 cm d orsal skin blister of the forefoot. 08/19/22 EXTREMITY ARTERIAL IMPRESSION : No sonographic evidence for flow-limiting stenosis in the right lower extremity arterial system. 08/18/[address] IMPRESSION: Extens jeannie soft tissue edema with mottled gas in the subcutaneous and i ntramuscular compartments of the foot compatible with gas-forming infectio n. Disease extends into the visualized distal leg. 08/18/22 ABD/PELVIS C T IMPRESSION: 3.3 cm hypodensity in the left posterior prosta te or seminal vesicle. This could represent an abscess. Contrast-enhanc ed MRI of the pelvis would be helpful for further evaluation. No acute intr a-abdominal findings otherwise. 08/18/22 FOOT X RAY IMPRESSION: No ac [place] osseous findings. No convincing evidence for osteomyelit is. MRI is more sensitive for detecting osteomyelitis. 08/18/22 CXR IMPRES KEISHA: Ill-defined somewhat nodular opacity measuring 3.2 cm latera lly in the right mid lung suspicious for rounded pneumonia given provided history, but underlying neoplasm can not be excluded. Followup radiograp hs are recommended after appropriate treatment in order to document compl ete resolution and exclude an underlying process or neoplasm. Other supporting diagnostics: RESPIRATORY STATUS: Respiratory treatments: O2 liters per minute: Respiratory status: ROOM AIR NEUROLOGIC STATUS: Neurologic status: Alert, Oriented to person, Or iented to place, Oriented to time Patient's mood and behavior: Appropriate Hand dominance: Right BOWEL/BLADDER: Continent of bladder for developmental age: Yes Number of bladder accidents in last 48 hours: Catheter type: Insertion date: Bladder aids: Bladder comment: Continent of bowel for developmental age: Yes Number of bowel accidents in last 48 hours: Date of last BM: 09/01/22 Colostomy: Ileostomy: Bowel aids: DULCOLAX COLACE Bowel comment: SKIN: Skin alteration: Present/Exists SKIN ALTERATION 1: Type: Surgical wound Location: Generalized right Stage: Description: RIGHT BKA SKIN ALTERATION 2: Type: Location: Stage: Description: SKIN ALTERATION 3: Type: Location: Stage: Description: SKIN ALTERATION 4: Type: Location: Stage: Description: EATING/NUTRITIONAL: Nutritional intake: CONSISTENT CARB DIET, 5 CARB SERVINGS/MEAL Eating compensatory strategies: Medication administration: Medications whole, IV , Subcutaneous, Topicals REHAB NEEDS: Special rehabilitation needs: IV/PICC/CVC, Respi ratory therapy Special rehabilitation precautions: Diet , Safety/fall, Isolation contact, Non- weight bearing RLE Rehabilitation precaution detail: WEIGHT BEARING MRSA/ISOLATION FALLS PRO-TECH BRACE AT ALL TIMES FUNCTIONAL ASSESSMENT: FUNC. TASK PRIOR LOF CURRENT LOF EXPECTED LOF Bathing Independent Substantial/max asst Indep endent U.B. Dressing Independent Substantial/max asst Independent L.B. Dressing Independent Substantial/max asst Independent Bed/Ch Transf. Independent Total assistance Ind ependent Toilet Transfer Independent Total assistance In dependent Stairs Independent Total assistance Independent Locomotion Independent Total assistance Indepen dent Locomotion prior device use: None Description of prior level of locomotion: NO AD Locomotion current device: RW/FWW Locomotion current distance traveled without a r est break: NOT TESTED Description of current level of locomotion: NOT TESTED Description of expected level of locomotion: MOD IND WITH WALKER Language and Cognition: MOLDOVAN A 0 X 4 Add'l functional comment: ROLLING MIN A SUP/SIT MOD A SIT/SUP MOD A SCOOTING MOD A SIT/STAND DEPENDENT Prior device use: None Prior device use additional information: PRE-HOSPITAL: Pre-hospital services utilized: None 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 Education history: Return to work/school plan: YES Marital status: Hobbies/leisure activities: Prior living situation: Home Living with: Family Living with comment: SPOUSE ANTICIPATED DC PLAN/POST IRF: Primary support contact: DONTAE TIM Relationship to patient: SPOUSE Phone number 1: [phone] Phone number 2: Caregiver availability: Caregiver can provide: Patient/caregiver goals/preferences: Expected discharge destination: Home Expected discharge physical layout: Onestory W/S EAT, Shower only Number of external stairs: Number of internal stairs: Railing details: Grab bars location: Barriers to discharge: Endurance Options discussed with patient: Yes Options discussed with caregiver: Yes Patient agrees with program requirements: Yes ACTIVITY TOLERANCE: Current treatment interventions: Occupational th erapy, Physical therapy, Respiratory therapy Patient able to tolerate 3 hours of therapy a da y: Yes Patient able to tolerate 15 hours of therapy a w [place]: Altered therapy schedule comment: ACUTE INPATIENT REHAB PLAN: Estimated length of stay in days: 17 Anticipated services in ut e inpatient rehab: Rehab nursing 15/12, biology manager, engineering production worker, Occupational therapy, Physical th erapy, Dietitian, Respiratory therapy Acute hospital documents reviewed prior to admis keisha decision: Acute History/ Physical, Consult notes, Operative reports, Prog ress notes, Lab/diagnostics, Therapy notes, Vital signs, Other ancillary note s CRS ELECTRONIC SIGNATURE: CRS #1 electronic signature: OSCAR ARREDONDO CRS credentials: RN Date: 09/01/22 Time: 728 CRS #2 electronic signature: CRS credentials: Date: Time: CRS #3 electronic signature: CRS credentials: Date: Time: Provider Pre-Admit Summary Acute IP rehab admit: criteria met MD determination Based upon my evaluation and review of t he supporting assessment documentation and consultation with the pr eadmission pull worker, I have determined, prior to admitting this patient, that there is r easonable expectation that at the time of admission to the IRF, the patient's medical management and rehabilitation needs require an inpatient stay and close physician involvement. Patient can be expected to actively participate in, and benefit from, and intensive rehab therapy prog roseanne whose intensity is not provided in lower levels of care. Significant barriers that can only be addressed in an acute inpatient rehab program, including, but not limited to: Date of onset: 08/18/22 Current surgery date and type: 08/28/22 RIGHT BE LOW KNEE AMPUTATION 08/19/22 irrigation and debridement right foot Active comorbid conditions: POST OP ANEM IA, ERIKA, DM, HTN, DIABETIC NEUROPATHY, HLD Past medical and surgical history: DM 2 since ag e 33 DM neuropathy HTN hyperlipidemia Had major surgery within 100 days of admission: Yes Risk for medical/clinical complications: Anemia, Arrhythmia, BP fluctuation, Blood sugar fluctuation, Cardiac instability, Co nstipation, DVT, Depression, Electrolyte imbalance, Hypoxia, Incisional dehis cence, Infection, Injury d/t falls, Nutritional compromise, Pain, Renal insuf f/failure, Skin breakdown, Respiratory insufficiency, Urinary retention Complex acute rehab needs: Custom therap y tx plan, Mgt of complex Co-morb, Med adjustment/mgmt., New medical diagnosis, Postsurgery req mgt/care, Nutritional compromise, Hospitalist consult, VTE Risk Acute hospital stay: [facility] care w/Fausto ZEPEDA, IRF consult on Acute care at 0914 RPT #:[id number] END OF REPORT 2022-09-01 06:28:00-00:[address] [facility] ([facility]) Rehab Progress Note REPORT#:[id number] REPORT STATUS: Signed DATE:09/01/22 TIME: 627 PATIENT: KARMA ROWLAND UNIT #: [id number] ROOM/BED: [place] [address] : 61 AGE: 56 SEX: M ATTEND: Mikayla Ramires MD ADM AUTHOR: Mj Vences MD * ALL edits or amendments must be made on the [employer] document * Subjective Chief complaint: Rehab [id number] Doing well In bed, NAD States pain fairly well controlled Urine is clear in room Denies MCBRIDE/N/V/D/CP 14 systems reviewed and neg. except that above. Objective General VS: Vital Signs: Date Time Temp Pulse Resp B/P B/P Pulse O2 O2 F low FiO2 Mean Ox Delivery Rate 09/01 0600 81 115/59 83 99 09/01 0500 80 17 126/65 90 97 09/01 0435 98.5 79 16 126/65 85 99 / 0400 83 16 128/64 90 97 / 0300 86 14 126/59 85 97 / 0200 87 148/70 101 97 / 0100 91 12 141/67 97 97 09/01 0032 98.1 90 16 138/66 90 99 04/10 0000 88 16 138/66 95 98 04 2300 87 13 134/64 92 98 08/31 2200 85 10 132/63 90 97 08/31 2100 139/64 92 08/31 2059 89 10 96 08/31 2000 92 14 167/77 111 99 08/31 1929 98.3 94 16 151/69 96 100 Room air 08/31 1900 96 151/69 99 98 08/31 1835 97 14 180/85 122 99 08/31 1804 15 08/31 1800 95 184/86 124 99 08/31 1620 97.5 95 16 195/88 0.0 99 / 1435 97.9 90 14 150/70 98 / 1430 98.1 89 14 147/69 98 04/ 1425 97.8 90 15 157/83 99 04/ 1419 98.3 90 14 155/68 90 04/ 1208 98.1 91 12 145/66 0.0 98 04/ 0715 98.1 79 14 144/69 0.0 99 PATIENT WEIGHT: Weight (lb): 154 Weight (oz): 1.65 Weight (kg): 69.900 Medications: Active Meds + DC'd Last 24 Hrs Hydralazine HCl (APRESOLINE) 10 MG Q6H PRN PRN I V Sodium Polystyrene Sulfonate (KAYEXELATE) 30 GM ONCE ONE PO (DC) Sodium Polystyrene Sulfonate (KAYEXELATE) 30 GM ONCE ONE PO (DC) Insulin Glargine (Lantus/Semglee) 15 UNIT BEDTIM E SUBQ Insulin Human Lispro (HUMALOG) 5 UNIT AC SUBQ Lidocaine (LIDODERM) 1 PATCH DAILY TOPICAL Hydromorphone HCl (DILAUDID) 1 MG Q3H PRN PRN IV Hydromorphone HCl (DILAUDID) 0.5 MG Q3H PRN PRN IV Meropenem (MEROPENEM) 500 MG Q6H IV Sterile Water (WATER FOR INJECTION) 10 ML Daptomycin (CUBICIN 500MG) 700 MG Q24H IV (CKD) Sodium Chloride (SODIUM CHLORIDE 0.9%) 50 ML Famotidine (PEPCID) 20 MG BID PO (DC) Lorazepam (ATIVAN) 1 MG ONCE PRN IV Sodium Chloride (SODIUM CHLORIDE) 0 ASDIR PRN IV Insulin Human Lispro (HUMALOG) 0 AC HS SUBQ Dextrose/Water (DEXTROSE 10% IN WATER) 125 ML DIR PRN IV (CKD) Dextrose/Water (DEXTROSE 10% IN WATER) 250 ML DIR PRN IV (CKD) Glucagon (GLUCAGON) 1 MG ASDIR PRN IM Dextrose/Water (Dextrose 10% 1,000 mL) 1,000 ML ASDIR IV Acetaminophen (TYLENOL) 650 MG Q6H PRN PRN PO Bisacodyl (DULCOLAX) 10 MG DAILY PRN PRN RECTAL Docusate Sodium (COLACE) 100 MG Q12H PRN PRN PO Ondansetron HCl (ZOFRAN) 4 MG Q6H PRN PRN IV Heparin Sodium (HEPARIN 5000 UNITS/ML) 5,000 UNI T Q8HR SUBQ Physical Exam General appearance: alert, awake, no acute distr ess Psych: alert, normal affect, oriented x 3 HEENT: anicteric, mucosal membranes moist, pupil s reactive to light, sclera clear Neck: non-tender, supple, no JVD Cardiovascular: regular rate rhythm, S1/S2 Respiratory: aerating well, clear bilaterally, c lear to auscultation Abdomen: bowel sounds present, non-distended, so ft Skin: R BKA wrapped with kerlix and ORALIA, removed incision healing well, some small blisters on distal limb, no erythema. DSGi ngs replaced. Left foot/ankle wrapped Musculoskeletal - general: Musculoskeletal - general: MMT BUE 5/5, LLE 4/5, R hip 3-, R knee in nestor-tech orthotic 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 X 3, CNII-XII intact Results Findings/Data: Laboratory Tests: 09/01 08/31 08/31 08/31 08/31 0345 1916 1810 1618 1240 Chemistry POC Glucose (70 - 110 MG/DL) 176 H 163 H 76 Total Creatine Kinase (46 - 171 79 Units/L) Hematology Hgb (12.5 - 16.9 g/dL) 9.1 L Hct (37.5 - 50.7 %) 28.2 L 08/31 08/31 08/31 1203 0714 0642 Chemistry Sodium (134 - 147 mEq/L) 136 Potassium (3.4 - 5.0 mEq/L) 5.4 H Chloride (100 - 108 mEq/L) 110 H Carbon Dioxide (21 - 33 mEq/l) 22 Anion Gap (0 - 20) 9 BUN (7 - 18 mg/dL) 29 H Creatinine (0.6 - 1.3 mg/dL) 1.2 Glomerular Filtr Rate (90 - 95) 70.1 L Glucose (70 - 110 mg/dL) 129 H POC Glucose (70 - 110 MG/DL) 44 L 110 Calcium (8.0 - 10.5 mg/dL) 7.2 L Hematology WBC (4.5 - 11.0 x10 3/uL) 8.7 RBC (4.00 - 5.60 x10 6/uL) 2.50 L Hgb (12.5 - 16.9 g/dL) 6.9 L Hct (37.5 - 50.7 %) 21.7 L MCV (81.0 - 99.0 fL) 86.8 MCH (27.0 - 33.0 pg) 27.6 MCHC (33.0 - 37.0 g/dL) 31.8 L RDW (11.5 - 14.5 %) 14.3 Plt Count (150 - 400 x10 3/uL) 208 MPV (7.0 - 9.0 fL) 9.4 H Neut % (Auto) (56.0 - 77.0 %) 76.3 Lymph % (Auto) (14.0 - 32.0 %) 16.8 Boundary % (Auto) (4.8 - 9.0 %) 4.8 Eos % (Auto) (0.3 - 3.7 %) 1.6 Baso % (Auto) (0.0 - 2.0 %) 0.2 Neut # (Auto) (2.0 - 7.6 x10 3/uL) 6.63 Lymph # (Auto) (1.0 - 3.8 x10 3/uL) 1.46 Boundary # (Auto) (0.1 - 0.8 x10 3/uL) 0.42 Eos # (Auto) (0.0 - 0.2 x10 3/uL) 0.14 Baso # (Auto) (0.0 - 0.2 x10 3/uL) 0.02 Abs Immat Gran (auto) (0.00 - 0.03 x10 3/uL) 0. 03 Add Manual Diff NO Immature Gran % (0.0 - 2.0 %) 0.3 Nucleated RBC % (0 - 0 %) 0.0 Nucleated RBCs # (Man) (0.0 - 0.1 x10 3/uL) 0.0 0 Radiology data: Recent Impressions: ULTRASOUND - DUP VEIN UNI/LTD 08/28 856 Report Impression - Status: SIGNED Entered: 08/28/202290 IMPRESSION: 1. No evidence of venous thrombosis involving le ft lower extremity. 2. Approximately 8 x 2 x 1.3 cm complex fluid co llection along the left upper calf probably representing a smal l hematoma. Impression By: [email or web address] - Hakeem Soto RADIOLOGY - XR FLUOROSCOPY 0-60 MIN 08/28 1101 Report Impression - Status: SIGNED Entered: 08/28/2022 1120 IMPRESSION: Fluoroscopy dosage documentation. See also separ ate procedure notes. Impression By: [email or web address] - Bishop Atkins M.D. 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 Leroy Significant impairment in self-care, ADLs and fu nctional mobility Impaired mobility and gait Postoperative pain Diabetic polyneuropathy DKA, DM 2, poorly controlled Minimal PAD MRSA bacteremia/sepsis ERIKA Severe hyponatremia-resolved HTN Acute on chronic anemia requiring multiple trans fusions Left calf hematoma Edema and clinical arthritis left ankle Prostatic abscess 08/26: S/p transrectal ultrasound aspiration of ab scess and transurethral resection of prostate and unroofing of abscess Echo: EF 55-59%, grade 1 diastolic dysfunction Hypoalbuminemia Plan: -Continue PT and OT -Case management for safe discharge planning. -Decubitus prevention -Nutrition, monitor the patient's p.o. intake, a lbumin 1.3, check prealbumin, dietary consultation, protein supplements promot e healing -Strict fall and safety precaution -DVT prophylaxis-subcutaneous heparin -GI prophylaxis on Pepcid -Early mobilization-OOB to chair -Work on bed mobility, transfer training , ADLs, pre-gait and gait exercises as tolerable. -Increase endurance and strength -Pain management-patient requiring IV Dilaudid -Glycemic control as per endo-blood sugars much improved -Monitor labs-WBC trending down, hemoglo bin 9.1, s/p PRBC transfusions, sodium normal, creatinine 1.2, pota ssium elevating given Kayexalate, awaiting potassium level -Has received multiple units of PRBCs-serial H/H -ID requesting JIMENA to rule out endocarditis, con tinue ABX -Patient on CBI and urine is clear-DC CBI if oka y with -Edema and clinical arthritis left ankle-Lidoder m patch and Oralia wrap -NWB right BKA, continue Nestor -tech orthotic-incision healing well, some blisters on distal limb, no erythema or signs of infectio n, dressings reapplied -Right BKA amputee rehab -Excellent candidate for inpatient rehab, admit preauthorization if okay with rehabilitation admissions. Referral to 5 E. rehvielka b ordered. Patient and would like to stay here at [facility]. -Patient approved for IRF. Patient to admit toda y if okay with all providers. -Urine clear-asked RN to DC CBI if okay with -Preadmission screen completed. -COVID-negative Progress: Bed Mobility - Rolling: Minimal Nathan tance Bed Mobility - Supine to Sit: Moderate Assistan ce Bed Mobility - Sit to Supine: Moderate Assistan ce Scooting: Moderate Assistance Sit to Stand: Dependent Static Sitting: Minimal Assistance Dynamic Sitting: Minimal Assistance Static Standing: Dependent Dynamic Standing: Not Tested Functional Exercises: SUPINE EXERCISES Total time was 34 minutes > 50% with patient per forming physical examination, discussing with patient and about transfer to rehab, rehab plan of care, goals, therapies, progress, medications, labs. A ll questions answered Orders: Procedure Date/time Status EXERCISE 15 MIN 09/01 1134 Active ADL 15 MIN 09/01 1134 Active Rehab attestation: . at 1139 RPT #:[id number] END OF REPORT 2022-08-31 15:30:00-00:00 [facility] ([facility]) Endocrinology Progress Note REPORT#:[id number] REPORT STATUS: Signed DATE:08/31/22 TIME: 1530 PATIENT: KARMA ROWLAND UNIT #: [id number] ROOM/BED: [place] [id number] : 61 AGE: 56 SEX: M ATTEND: Mikayla Ramires MD ADM AUTHOR: Braxton Chapin MD * ALL edits or amendments must be made on the el [employer]ive Sports/computer document * Subjective Patient reports: no complaints Objective General VS: Last Documented: Result Date Time Pulse Ox 98 08/31 1435 B/P 150/70 08/31 1435 Temp 36.6 08/31 1435 Pulse 90 08/31 1435 Resp 14 08/31 1435 B/P Mean 0.0 04/09 1208 O2 Delivery Room air 08/31 0516 O2 Flow Rate 7 08/28 1222 PATIENT WEIGHT: Weight (lb): 154 Weight (oz): 1.65 Weight (kg): 69.900 Medications: Active Meds + DC'd Last 24 Hrs Sodium Polystyrene Sulfonate (KAYEXELATE) 30 GM ONCE ONE PO (DC) Sodium Polystyrene Sulfonate (KAYEXELATE) 30 GM ONCE ONE PO (DC) Insulin Glargine (Lantus/Semglee) 15 UNIT BEDTIM E SUBQ Insulin Human Lispro (HUMALOG) 5 UNIT AC SUBQ Lidocaine (LIDODERM) 1 PATCH DAILY TOPICAL Insulin Glargine (Lantus/Semglee) 20 UNIT BEDTIM E SUBQ (DC) Hydromorphone HCl (DILAUDID) 1 MG Q3H PRN PRN IV Hydromorphone HCl (DILAUDID) 0.5 MG Q3H PRN PRN IV Meropenem (MEROPENEM) 500 MG Q6H IV Sterile Water (WATER FOR INJECTION) 10 ML Daptomycin (CUBICIN 500MG) 700 MG Q24H IV (CKD) Sodium Chloride (SODIUM CHLORIDE 0.9%) 50 ML Famotidine (PEPCID) 20 MG BID PO (DC) Lorazepam (ATIVAN) 1 MG ONCE PRN IV Sodium Chloride (SODIUM CHLORIDE) 0 ASDIR PRN IV Insulin Human Lispro (HUMALOG) 0 AC HS SUBQ Dextrose/Water (DEXTROSE 10% IN WATER) 125 ML DIR PRN IV (CKD) Dextrose/Water (DEXTROSE 10% IN WATER) 250 ML DIR PRN IV (CKD) Glucagon (GLUCAGON) 1 MG ASDIR PRN IM Dextrose/Water (Dextrose 10% 1,000 mL) 1,000 ML ASDIR IV Acetaminophen (TYLENOL) 650 MG Q6H PRN PRN PO Bisacodyl (DULCOLAX) 10 MG DAILY PRN PRN RECTAL Docusate Sodium (COLACE) 100 MG Q12H PRN PRN PO Ondansetron HCl (ZOFRAN) 4 MG Q6H PRN PRN IV Heparin Sodium (HEPARIN 5000 UNITS/ML) 5,000 UNI T Q8HR SUBQ Physical Exam General appearance: alert, awake Diagnosis, Assessment Plan Hospital course to date: Laboratory Tests: 08/31 08/31 08/31 08/31 08/30 1240 1203 0714 0642 1943 Chemistry Sodium (134 - 147 mEq/L) 136 Potassium (3.4 - 5.0 mEq/L) 5.4 H Chloride (100 - 108 mEq/L) 110 H Carbon Dioxide (21 - 33 mEq/l) 22 Anion Gap (0 - 20) 9 BUN (7 - 18 mg/dL) 29 H Creatinine (0.6 - 1.3 mg/dL) 1.2 Glomerular Filtr Rate (90 - 95) 70.1 L Glucose (70 - 110 mg/dL) 129 H POC Glucose (70 - 110 MG/DL) 76 44 L 110 140 H Calcium (8.0 - 10.5 mg/dL) 7.2 L Hematology WBC (4.5 - 11.0 x10 3/uL) 8.7 RBC (4.00 - 5.60 x10 6/uL) 2.50 L Hgb (12.5 - 16.9 g/dL) 6.9 L Hct (37.5 - 50.7 %) 21.7 L MCV (81.0 - 99.0 fL) 86.8 MCH (27.0 - 33.0 pg) 27.6 MCHC (33.0 - 37.0 g/dL) 31.8 L RDW (11.5 - 14.5 %) 14.3 Plt Count (150 - 400 x10 3/uL) 208 MPV (7.0 - 9.0 fL) 9.4 H Neut % (Auto) (56.0 - 77.0 %) 76.3 Lymph % (Auto) (14.0 - 32.0 %) 16.8 Boundary % (Auto) (4.8 - 9.0 %) 4.8 Eos % (Auto) (0.3 - 3.7 %) 1.6 Baso % (Auto) (0.0 - 2.0 %) 0.2 Neut # (Auto) (2.0 - 7.6 x10 3/uL) 6.63 Lymph # (Auto) (1.0 - 3.8 x10 3/uL) 1.46 Boundary # (Auto) (0.1 - 0.8 x10 3/uL) 0.42 Eos # (Auto) (0.0 - 0.2 x10 3/uL) 0.14 Baso # (Auto) (0.0 - 0.2 x10 3/uL) 0.02 Abs Immat Gran (auto) (0.00 - 0.03 0.03 x10 3/uL) Add Manual Diff NO Immature Gran % (0.0 - 2.0 %) 0.3 Nucleated RBC % (0 - 0 %) 0.0 Nucleated RBCs # (Man) (0.0 - 0.1 0.00 x10 3/uL) 08/30 165 Chemistry POC Glucose (70 - 110 MG/DL) 109 Laboratory Tests: 08/30 1218 0878 0545 2010 Chemistry Sodium (134 - 147 mEq/L) 136 Potassium (3.4 - 5.0 mEq/L) 5.2 H Chloride (100 - 108 mEq/L) 109 H Carbon Dioxide (21 - 33 mEq/l) 23 Anion Gap (0 - 20) 9 BUN (7 - 18 mg/dL) 33 H Creatinine (0.6 - 1.3 mg/dL) 1.3 Glomerular Filtr Rate (90 - 95) 63.7 L Glucose (70 - 110 mg/dL) 65 L POC Glucose (70 - 110 MG/DL) 109 81 83 81 Calcium (8.0 - 10.5 mg/dL) 7.3 L Phosphorus (2.5 - 4.9 MG/DL) 4.6 Magnesium (1.80 - 2.40 mg/dL) 2.01 Hematology WBC (4.5 - 11.0 x10 3/uL) 12.6 H RBC (4.00 - 5.60 x10 6/uL) 2.55 L Hgb (12.5 - 16.9 g/dL) 7.2 L Hct (37.5 - 50.7 %) 22.7 L MCV (81.0 - 99.0 fL) 89.0 MCH (27.0 - 33.0 pg) 28.2 MCHC (33.0 - 37.0 g/dL) 31.7 L RDW (11.5 - 14.5 %) 14.5 Plt Count (150 - 400 x10 3/uL) 197 MPV (7.0 - 9.0 fL) 9.5 H Neut % (Auto) (56.0 - 77.0 %) 78.7 H Lymph % (Auto) (14.0 - 32.0 %) 13.4 L Boundary % (Auto) (4.8 - 9.0 %) 6.3 Eos % (Auto) (0.3 - 3.7 %) 0.8 Baso % (Auto) (0.0 - 2.0 %) 0.2 Neut # (Auto) (2.0 - 7.6 x10 3/uL) 9.96 H Lymph # (Auto) (1.0 - 3.8 x10 3/uL) 1.69 Boundary # (Auto) (0.1 - 0.8 x10 3/uL) 0.79 Eos # (Auto) (0.0 - 0.2 x10 3/uL) 0.10 Baso # (Auto) (0.0 - 0.2 x10 3/uL) 0.02 Abs Immat Gran (auto) (0.00 - 0.03 0.08 H x10 3/uL) Add Manual Diff NO Immature Gran % (0.0 - 2.0 %) 0.6 Nucleated RBC % (0 - 0 %) 0.0 Nucleated RBCs # (Man) (0.0 - 0.1 0.00 x10 3/uL) Laboratory Tests: 08/29 08/29 08/29 08/29 08/29 1655 1041 0912 0844 0513 Chemistry POC Glucose (70 - 110 MG/DL) 157 H 105 70 70 Prealbumin (16.0 - 40.0 mg/dL) < 5.0 L 08/29 Chemistry Sodium (134 - 147 mEq/L) 136 Potassium (3.4 - 5.0 mEq/L) 4.9 Chloride (100 - 108 mEq/L) 109 H Carbon Dioxide (21 - 33 mEq/l) 23 Anion Gap (0 - 20) 9 BUN (7 - 18 mg/dL) 31 H Creatinine (0.6 - 1.3 mg/dL) 1.5 H Glomerular Filtr Rate (90 - 95) 53.6 L Glucose (70 - 110 mg/dL) 90 POC Glucose (70 - 110 MG/DL) 145 H Calcium (8.0 - 10.5 mg/dL) 7.2 L Phosphorus (2.5 - 4.9 MG/DL) 5.2 H Magnesium (1.80 - 2.40 mg/dL) 1.91 Hematology WBC (4.5 - 11.0 x10 3/uL) 14.2 H RBC (4.00 - 5.60 x10 6/uL) 2.50 L Hgb (12.5 - 16.9 g/dL) 7.1 L Hct (37.5 - 50.7 %) 21.5 L MCV (81.0 - 99.0 fL) 86.0 MCH (27.0 - 33.0 pg) 28.4 MCHC (33.0 - 37.0 g/dL) 33.0 RDW (11.5 - 14.5 %) 14.6 H Plt Count (150 - 400 x10 3/uL) 212 MPV (7.0 - 9.0 fL) 9.2 H Neut % (Auto) (56.0 - 77.0 %) 83.2 H Lymph % (Auto) (14.0 - 32.0 %) 10.0 L Boundary % (Auto) (4.8 - 9.0 %) 5.6 Eos % (Auto) (0.3 - 3.7 %) 0.5 Baso % (Auto) (0.0 - 2.0 %) 0.1 Neut # (Auto) (2.0 - 7.6 x10 3/uL) 11.78 H Lymph # (Auto) (1.0 - 3.8 x10 3/uL) 1.42 Boundary # (Auto) (0.1 - 0.8 x10 3/uL) 0.79 Eos # (Auto) (0.0 - 0.2 x10 3/uL) 0.07 Baso # (Auto) (0.0 - 0.2 x10 3/uL) 0.02 Abs Immat Gran (auto) (0.00 - 0.03 x10 3/uL) 0. 08 H Add Manual Diff NO Immature Gran % (0.0 - 2.0 %) 0.6 Nucleated RBC % (0 - 0 %) 0.0 Nucleated RBCs # (Man) (0.0 - 0.1 x10 3/uL) 0.0 0 Laboratory Tests: 08/28 08/28 08/28 08/28 1709 1302 1218 0624 Chemistry POC Glucose (70 - 110 MG/DL) 103 206 H 185 H 18 0 H 08/28 1825 Chemistry Sodium (134 - 147 mEq/L) 137 136 Potassium (3.4 - 5.0 mEq/L) 5.0 5.1 H Chloride (100 - 108 mEq/L) 109 H 109 H Carbon Dioxide (21 - 33 mEq/l) 21 20 L Anion Gap (0 - 20) 12 12 BUN (7 - 18 mg/dL) 30 H 30 H Creatinine (0.6 - 1.3 mg/dL) 1.4 H 1.2 Glomerular Filtr Rate (90 - 95) 58.3 L 70.1 L Glucose (70 - 110 mg/dL) 167 H 161 H POC Glucose (70 - 110 MG/DL) 87 Calcium (8.0 - 10.5 mg/dL) 7.7 L 7.5 L Ionized Calcium Mitzi (1.09 - 1.30 MMOL/L) 1.12 Phosphorus (2.5 - 4.9 MG/DL) 4.8 Magnesium (1.80 - 2.40 mg/dL) 1.89 Total Bilirubin (0.0 - 1.0 mg/dL) 0.40 AST (15 - 37 IUnit/L) 17 ALT (30 - 65 IUnit/L) 9 L Total Alk Phosphatase (20 - 125 IUnit/L) 111 Total Protein (6.4 - 8.2 g/dL) 5.8 L Albumin (3.4 - 5.0 g/dL) 1.30 L Hematology WBC (4.5 - 11.0 x10 3/uL) 13.8 H RBC (4.00 - 5.60 x10 6/uL) 2.83 L Hgb (12.5 - 16.9 g/dL) 8.0 L Hct (37.5 - 50.7 %) 24.0 L MCV (81.0 - 99.0 fL) 84.8 MCH (27.0 - 33.0 pg) 28.3 MCHC (33.0 - 37.0 g/dL) 33.3 RDW (11.5 - 14.5 %) 14.6 H Plt Count (150 - 400 x10 3/uL) 244 MPV (7.0 - 9.0 fL) 9.2 H Neut % (Auto) (56.0 - 77.0 %) 86.7 H Lymph % (Auto) (14.0 - 32.0 %) 8.2 L Boundary % (Auto) (4.8 - 9.0 %) 4.1 L Eos % (Auto) (0.3 - 3.7 %) 0.4 Baso % (Auto) (0.0 - 2.0 %) 0.1 Neut # (Auto) (2.0 - 7.6 x10 3/uL) 11.92 H Lymph # (Auto) (1.0 - 3.8 x10 3/uL) 1.13 Boundary # (Auto) (0.1 - 0.8 x10 3/uL) 0.57 Eos # (Auto) (0.0 - 0.2 x10 3/uL) 0.05 Baso # (Auto) (0.0 - 0.2 x10 3/uL) 0.01 Abs Immat Gran (auto) (0.00 - 0.03 x10 3/uL) 0. 07 H Add Manual Diff NO Immature Gran % (0.0 - 2.0 %) 0.5 Nucleated RBC % (0 - 0 %) 0.0 Nucleated RBCs # (Man) (0.0 - 0.1 x10 3/uL) 0.0 0 Microbiology: Date/Time Procedure - Status Source Growth 08/29 1347 Blood Culture - RECD BLOOD 08/28 134 Blood Culture - RECD BLOOD Recent Impressions: ULTRASOUND - DUP VEIN UNI/LTD 08/28 0857 Report Impression - Status: SIGNED Entered: 08/28/2022 0927 IMPRESSION: 1. No evidence of venous thrombosis involving le ft lower extremity. 2. Approximately 8 x 2 x 1.3 cm complex fluid co llection along the left upper calf probably representing a smal l hematoma. Impression By: [email or web address] - Hakeem Soto RADIOLOGY - XR FLUOROSCOPY 0-60 MIN 08/28 1101 Report Impression - Status: SIGNED Entered: 08/28/2022 1120 IMPRESSION: Fluoroscopy dosage documentation. See also separ ate procedure notes. Impression By: [email or web address] - Bishop Atkins M.D. Laboratory Tests: 08/27 08/27 08/27 08/27 1728 1147 0824 2399 Chemistry Sodium (134 - 147 mEq/L) 137 Potassium (3.4 - 5.0 mEq/L) 5.3 H Chloride (100 - 108 mEq/L) 110 H Carbon Dioxide (21 - 33 mEq/l) 20 L Anion Gap (0 - 20) 12 BUN (7 - 18 mg/dL) 33 H Creatinine (0.6 - 1.3 mg/dL) 1.2 Glomerular Filtr Rate (90 - 95) 70.1 L Glucose (70 - 110 mg/dL) 285 H POC Glucose (70 - 110 MG/DL) 148 H 244 H 294 H Calcium (8.0 - 10.5 mg/dL) 7.2 L Phosphorus (2.5 - 4.9 MG/DL) 5.4 H Magnesium (1.80 - 2.40 mg/dL) 1.94 Total Bilirubin (0.0 - 1.0 mg/dL) 0.40 AST (15 - 37 IUnit/L) 12 L ALT (30 - 65 IUnit/L) 9 L Total Alk Phosphatase (20 - 125 IUnit/L) 111 Total Protein (6.4 - 8.2 g/dL) 5.7 L Albumin (3.4 - 5.0 g/dL) 1.30 L 08/27 08/26 0418 2041 Chemistry POC Glucose (70 - 110 MG/DL) 148 H Ionized Calcium Mitzi (1.09 - 1.30 MMOL/L) 1.08 L Hematology WBC (4.5 - 11.0 x10 3/uL) 15.9 H RBC (4.00 - 5.60 x10 6/uL) 3.07 L Hgb (12.5 - 16.9 g/dL) 8.6 L Hct (37.5 - 50.7 %) 25.9 L MCV (81.0 - 99.0 fL) 84.4 MCH (27.0 - 33.0 pg) 28.0 MCHC (33.0 - 37.0 g/dL) 33.2 RDW (11.5 - 14.5 %) 14.6 H Plt Count (150 - 400 x10 3/uL) 250 MPV (7.0 - 9.0 fL) 9.8 H Neut % (Auto) (56.0 - 77.0 %) 88.7 H Lymph % (Auto) (14.0 - 32.0 %) 7.0 L Boundary % (Auto) (4.8 - 9.0 %) 3.3 L Eos % (Auto) (0.3 - 3.7 %) 0.3 Baso % (Auto) (0.0 - 2.0 %) 0.1 Neut # (Auto) (2.0 - 7.6 x10 3/uL) 14.14 H Lymph # (Auto) (1.0 - 3.8 x10 3/uL) 1.11 Boundary # (Auto) (0.1 - 0.8 x10 3/uL) 0.52 Eos # (Auto) (0.0 - 0.2 x10 3/uL) 0.04 Baso # (Auto) (0.0 - 0.2 x10 3/uL) 0.02 Abs Immat Gran (auto) (0.00 - 0.03 x10 3/uL) 0. 10 H Add Manual Diff NO Immature Gran % (0.0 - 2.0 %) 0.6 Nucleated RBC % (0 - 0 %) 0.0 Nucleated RBCs # (Man) (0.0 - 0.1 x10 3/uL) 0.0 0 Microbiology: Date/Time Procedure - Status Source Growth 08/26 2216 Wound Culture - RES ABSCESS GRAM NEGATIVE JAKOB 08/26 2216 Anaerobic Culture - RES ABSCESS 08/26 2216 Gram Stain - RES ABSCESS Laboratory Tests: 08/26 08/26 08/25 0906 0430 2007 Chemistry Sodium (134 - 147 mEq/L) 136 Potassium (3.4 - 5.0 mEq/L) 4.8 Chloride (100 - 108 mEq/L) 109 H Carbon Dioxide (21 - 33 mEq/l) 21 Anion Gap (0 - 20) 11 BUN (7 - 18 mg/dL) 32 H Creatinine (0.6 - 1.3 mg/dL) 1.1 Glomerular Filtr Rate (90 - 95) 77.8 L Glucose (70 - 110 mg/dL) 151 H POC Glucose (70 - 110 MG/DL) 163 H 113 H Calcium (8.0 - 10.5 mg/dL) 7.7 L Ionized Calcium Mitzi (1.09 - 1.30 MMOL/L) 1.11 Phosphorus (2.5 - 4.9 MG/DL) 4.6 Magnesium (1.80 - 2.40 mg/dL) 1.89 Total Bilirubin (0.0 - 1.0 mg/dL) 0.50 AST (15 - 37 IUnit/L) 19 ALT (30 - 65 IUnit/L) 11 L Total Alk Phosphatase (20 - 125 IUnit/L) 149 H Total Protein (6.4 - 8.2 g/dL) 5.5 L Albumin (3.4 - 5.0 g/dL) 1.30 L Hematology WBC (4.5 - 11.0 x10 3/uL) 17.7 H RBC (4.00 - 5.60 x10 6/uL) 2.44 L Hgb (12.5 - 16.9 g/dL) 6.7 L Hct (37.5 - 50.7 %) 20.4 L MCV (81.0 - 99.0 fL) 83.6 MCH (27.0 - 33.0 pg) 27.5 MCHC (33.0 - 37.0 g/dL) 32.8 L RDW (11.5 - 14.5 %) 14.7 H Plt Count (150 - 400 x10 3/uL) 253 MPV (7.0 - 9.0 fL) 9.9 H Neut % (Auto) (56.0 - 77.0 %) 87.5 H Lymph % (Auto) (14.0 - 32.0 %) 7.4 L Boundary % (Auto) (4.8 - 9.0 %) 3.9 L Eos % (Auto) (0.3 - 3.7 %) 0.5 Baso % (Auto) (0.0 - 2.0 %) 0.1 Neut # (Auto) (2.0 - 7.6 x10 3/uL) 15.49 H Lymph # (Auto) (1.0 - 3.8 x10 3/uL) 1.31 Boundary # (Auto) (0.1 - 0.8 x10 3/uL) 0.69 Eos # (Auto) (0.0 - 0.2 x10 3/uL) 0.08 Baso # (Auto) (0.0 - 0.2 x10 3/uL) 0.01 Abs Immat Gran (auto) (0.00 - 0.03 x10 3/uL) 0 .11 H Add Manual Diff NO Immature Gran % (0.0 - 2.0 %) 0.6 Nucleated RBC % (0 - 0 %) 0.0 Nucleated RBCs # (Man) (0.0 - 0.1 x10 3/uL) 0.0 0 Laboratory Tests: 08/25 08/25 08/25 08/25 1723 1111 1044 1044 Chemistry Potassium (3.4 - 5.0 mEq/L) 4.5 POC Glucose (70 - 110 MG/DL) 132 H 143 H Total Creatine Kinase (46 - 171 Units/L) 17 L Urines Urine Color (YEL/STRAW) YELLOW Urine Appearance (CLEAR) TURBID H Urine pH (5.0 - 7.0) 5.0 Ur Specific [place] (1.005 - 1.030) 1.012 Urine Protein (NEGATIVE) 2+ H Urine Glucose (UA) (NEGATIVE) NEGATIVE Urine Ketones (NEGATIVE) NEGATIVE Urine Blood (NEGATIVE) 2+ H Urine Nitrite (NEGATIVE) NEGATIVE Urine Bilirubin (NEGATIVE) NEGATIVE Urine Urobilinogen (0.2 - 1.0 mg/dL) 0.2 Ur Leukocyte Esterase (NEGATIVE) 3+ H Urine RBC (0 - 3 RBC/HPF) 21-50 Urine WBC (0 - 3 WBC/HPF) >50 H Ur Squamous Epith Cells (NONE SEEN /HPF) NONE SEEN Ur Transition Epith Cell (NONE SEEN /HPF) 3+ H Urine Bacteria (NONE SEEN /HPF) TRACE Urine Mucus (NONE SEEN /LPF) TRACE 08/25 08/25 08/24 0750 0744 2130 Chemistry Sodium (134 - 147 mEq/L) 135 Potassium (3.4 - 5.0 mEq/L) 5.4 H Chloride (100 - 108 mEq/L) 110 H Carbon Dioxide (21 - 33 mEq/l) 19 L Anion Gap (0 - 20) 11 BUN (7 - 18 mg/dL) 25 H Creatinine (0.6 - 1.3 mg/dL) 1.1 Glomerular Filtr Rate (90 - 95) 77.8 L Glucose (70 - 110 mg/dL) 162 H POC Glucose (70 - 110 MG/DL) 166 H 140 H Calcium (8.0 - 10.5 mg/dL) 7.3 L Ionized Calcium Mitzi (1.09 - 1.30 MMOL/L) 0.96 L Phosphorus (2.5 - 4.9 MG/DL) 4.5 Magnesium (1.80 - 2.40 mg/dL) 1.88 Total Bilirubin (0.0 - 1.0 mg/dL) 0.50 AST (15 - 37 IUnit/L) 40 H ALT (30 - 65 IUnit/L) 21 L Total Alk Phosphatase (20 - 125 IUnit/L) 159 H Total Protein (6.4 - 8.2 g/dL) 5.6 L Albumin (3.4 - 5.0 g/dL) 1.30 L Hematology WBC (4.5 - 11.0 x10 3/uL) 17.9 H RBC (4.00 - 5.60 x10 6/uL) 2.64 L Hgb (12.5 - 16.9 g/dL) 7.3 L Hct (37.5 - 50.7 %) 22.6 L MCV (81.0 - 99.0 fL) 85.6 MCH (27.0 - 33.0 pg) 27.7 MCHC (33.0 - 37.0 g/dL) 32.3 L RDW (11.5 - 14.5 %) 15.1 H Plt Count (150 - 400 x10 3/uL) 226 MPV (7.0 - 9.0 fL) 10.7 H Neut % (Auto) (56.0 - 77.0 %) 86.3 H Lymph % (Auto) (14.0 - 32.0 %) 8.1 L Boundary % (Auto) (4.8 - 9.0 %) 4.3 L Eos % (Auto) (0.3 - 3.7 %) 0.5 Baso % (Auto) (0.0 - 2.0 %) 0.1 Neut # (Auto) (2.0 - 7.6 x10 3/uL) 15.44 H Lymph # (Auto) (1.0 - 3.8 x10 3/uL) 1.45 Boundary # (Auto) (0.1 - 0.8 x10 3/uL) 0.77 Eos # (Auto) (0.0 - 0.2 x10 3/uL) 0.09 Baso # (Auto) (0.0 - 0.2 x10 3/uL) 0.02 Abs Immat Gran (auto) (0.00 - 0.03 x10 3/uL) 0. 13 H Add Manual Diff NO Immature Gran % (0.0 - 2.0 %) 0.7 Nucleated RBC % (0 - 0 %) 0.0 Nucleated RBCs # (Man) (0.0 - 0.1 x10 3/uL) 0.0 0 Microbiology: Date/Time Procedure - Status Source Growth 08/26 1043 Urine Culture - WKST URINE 08/26 1043 Blood Culture - RECD BLOOD 08/26 1043 Blood Culture - RECD BLOOD Laboratory Tests: 08/20 08/20 08/20 08/20 08/20 1107 0756 0647 0554 0454 Chemistry Sodium (134 - 147 mEq/L) 137 Potassium (3.4 - 5.0 mEq/L) 3.7 Chloride (100 - 108 mEq/L) 107 Carbon Dioxide (21 - 33 mEq/l) 20 L Anion Gap (0 - 20) 14 BUN (7 - 18 mg/dL) 44 H Creatinine (0.6 - 1.3 mg/dL) 1.2 Glomerular Filtr Rate (90 - 95) 70.1 L Glucose (70 - 110 mg/dL) 212 H POC Glucose (70 - 110 MG/DL) 173 H 192 H 206 H 198 H Calcium (8.0 - 10.5 mg/dL) 7.3 L Ionized Calcium Mitzi (1.09 - 1.30 MMOL/L) 1.04 L Phosphorus (2.5 - 4.9 MG/DL) 3.4 Magnesium (1.80 - 2.40 mg/dL) 2.05 Total Bilirubin (0.0 - 1.0 mg/dL) 0.60 AST (15 - 37 IUnit/L) 51 H ALT (30 - 65 IUnit/L) 22 L Total Alk Phosphatase (20 - 125 IUnit/L) 178 H Total Protein (6.4 - 8.2 g/dL) 5.7 L Albumin (3.4 - 5.0 g/dL) 2.00 L Hematology WBC (4.5 - 11.0 x10 3/uL) 22.8 H RBC (4.00 - 5.60 x10 6/uL) 2.63 L Hgb (12.5 - 16.9 g/dL) 7.1 L Hct (37.5 - 50.7 %) 21.3 L MCV (81.0 - 99.0 fL) 81.0 MCH (27.0 - 33.0 pg) 27.0 MCHC (33.0 - 37.0 g/dL) 33.3 RDW (11.5 - 14.5 %) 14.7 H Plt Count (150 - 400 x10 3/uL) 190 MPV (7.0 - 9.0 fL) 10.0 H Neut % (Auto) (56.0 - 77.0 %) 87.2 H Lymph % (Auto) (14.0 - 32.0 %) 4.8 L Boundary % (Auto) (4.8 - 9.0 %) 2.9 L Eos % (Auto) (0.3 - 3.7 %) 0.0 L Baso % (Auto) (0.0 - 2.0 %) 0.2 Neut # (Auto) (2.0 - 7.6 x10 3/uL) 19.90 H Lymph # (Auto) (1.0 - 3.8 x10 3/uL) 1.10 Boundary # (Auto) (0.1 - 0.8 x10 3/uL) 0.66 Eos # (Auto) (0.0 - 0.2 x10 3/uL) 0.00 Baso # (Auto) (0.0 - 0.2 x10 3/uL) 0.04 Abs Immat Gran (auto) (0.00 - 0.03 1.12 H x10 3/uL) Add Manual Diff NO Immature Gran % (0.0 - 2.0 %) 4.9 H Nucleated RBC % (0 - 0 %) 0.0 Nucleated RBCs # (Man) (0.0 - 0.1 0.00 x10 3/uL) 08/20 08/20 08/19 08/19 08/19 0259 0101 2352 2322 2310 Chemistry Sodium (134 - 147 mEq/L) 132 L Potassium (3.4 - 5.0 mEq/L) 3.7 Chloride (100 - 108 mEq/L) 107 Carbon Dioxide (21 - 33 mEq/l) 21 Anion Gap (0 - 20) 8 BUN (7 - 18 mg/dL) 41 H Creatinine (0.6 - 1.3 mg/dL) 1.2 Glomerular Filtr Rate (90 - 95) 70.1 L Glucose (70 - 110 mg/dL) 184 H POC Glucose (70 - 110 MG/DL) 195 H 181 H 182 H 191 H Calcium (8.0 - 10.5 mg/dL) 7.1 L Phosphorus (2.5 - 4.9 MG/DL) 3.3 Magnesium (1.80 - 2.40 mg/dL) 2.09 Albumin (3.4 - 5.0 g/dL) 1.70 L Hematology Hgb (12.5 - 16.9 g/dL) 7.0 L Hct (37.5 - 50.7 %) 21.8 L 08/19 165 Chemistry Sodium (134 - 147 mEq/L) 133 L Potassium (3.4 - 5.0 mEq/L) 3.6 Chloride (100 - 108 mEq/L) 105 Carbon Dioxide (21 - 33 mEq/l) 21 Anion Gap (0 - 20) 10 BUN (7 - 18 mg/dL) 45 H Creatinine (0.6 - 1.3 mg/dL) 1.2 Glomerular Filtr Rate (90 - 95) 70.1 L Glucose (70 - 110 mg/dL) 247 H POC Glucose (70 - 110 MG/DL) 165 H 209 H 218 H 219 H Calcium (8.0 - 10.5 mg/dL) 7.6 L Phosphorus (2.5 - 4.9 MG/DL) 3.0 Magnesium (1.80 - 2.40 mg/dL) 2.03 Albumin (3.4 - 5.0 g/dL) 1.40 L Hematology WBC (4.5 - 11.0 x10 3/uL) 20.3 H RBC (4.00 - 5.60 x10 6/uL) 2.57 L Hgb (12.5 - 16.9 g/dL) 7.1 L Hct (37.5 - 50.7 %) 20.9 L MCV (81.0 - 99.0 fL) 81.3 MCH (27.0 - 33.0 pg) 27.6 MCHC (33.0 - 37.0 g/dL) 34.0 RDW (11.5 - 14.5 %) 14.3 Plt Count (150 - 400 x10 3/uL) 197 MPV (7.0 - 9.0 fL) 10.2 H Neut % (Auto) (56.0 - 77.0 %) 88.7 H Lymph % (Auto) (14.0 - 32.0 %) 3.8 L Boundary % (Auto) (4.8 - 9.0 %) 3.7 L Eos % (Auto) (0.3 - 3.7 %) 0.0 L Baso % (Auto) (0.0 - 2.0 %) 0.3 Neut # (Auto) (2.0 - 7.6 x10 3/uL) 17.97 H Lymph # (Auto) (1.0 - 3.8 x10 3/uL) 0.76 L Boundary # (Auto) (0.1 - 0.8 x10 3/uL) 0.74 Eos # (Auto) (0.0 - 0.2 x10 3/uL) 0.00 Baso # (Auto) (0.0 - 0.2 x10 3/uL) 0.07 Abs Immat Gran (auto) (0.00 - 0.03 0.71 H x10 3/uL) Add Manual Diff NO Immature Gran % (0.0 - 2.0 %) 3.5 H Nucleated RBC % (0 - 0 %) 0.0 Nucleated RBCs # (Man) (0.0 - 0.1 0.00 x10 3/uL) 08/19 08/19 1622 1601 Chemistry POC Glucose (70 - 110 MG/DL) 232 H Urines Urine Color (YEL/STRAW) YELLOW Urine Appearance (CLEAR) SL CLOUDY Urine pH (5.0 - 7.0) 5.0 Ur Specific [place] (1.005 - 1.030) 1.013 Urine Protein (NEGATIVE) 1+ H Urine Glucose (UA) (NEGATIVE) 3+ H Urine Ketones (NEGATIVE) NEGATIVE Urine Blood (NEGATIVE) 2+ H Urine Nitrite (NEGATIVE) NEGATIVE Urine Bilirubin (NEGATIVE) NEGATIVE Urine Urobilinogen (0.2 - 1.0 mg/dL) 0.2 Ur Leukocyte Esterase (NEGATIVE) 3+ H Urine RBC (0 - 3 RBC/HPF) 4-10 Urine WBC (0 - 3 WBC/HPF) 21-50 H Ur Squamous Epith Cells (NONE SEEN /HPF) 0-5 Urine Bacteria (NONE SEEN /HPF) TRACE Urine Mucus (NONE SEEN /LPF) TRACE Microbiology: Date/Time Procedure - Status Source Growth 08/20 1457 Blood Culture - ORD BLOOD 03/29 1458 Blood Culture - ORD BLOOD 08/19 171 Blood Culture - ORD BLOOD 08/19 1709 Blood Culture - ORD BLOOD 08/19 1622 Urine Culture - RES URINE Laboratory Tests: 08/19 08/19 08/19 08/19 08/19 1338 1335 1233 1115 1115 Chemistry Sodium (134 - 147 mEq/L) 130 L Potassium (3.4 - 5.0 mEq/L) 3.6 Chloride (100 - 108 mEq/L) 107 Carbon Dioxide (21 - 33 mEq/l) 22 Anion Gap (0 - 20) 5 BUN (7 - 18 mg/dL) 39 H Creatinine (0.6 - 1.3 mg/dL) 1.1 Glomerular Filtr Rate (90 - 95) 77.8 L Glucose (70 - 110 mg/dL) 315 H POC Glucose (70 - 110 MG/DL) 340 H 363 H 326 H Calcium (8.0 - 10.5 mg/dL) 7.6 L Phosphorus (2.5 - 4.9 MG/DL) 2.2 L Magnesium (1.80 - 2.40 mg/dL) 2.06 B-Natriuretic Peptide (0 - 100 PG/ML) 96.0 Albumin (3.4 - 5.0 g/dL) 1.50 L 08/19 08/19 08/19 08/19 0805 0737 0737 0445 Chemistry Sodium (134 - 147 mEq/L) 130 L 130 L Potassium (3.4 - 5.0 mEq/L) 3.3 L 3.0 L Chloride (100 - 108 mEq/L) 103 102 Carbon Dioxide (21 - 33 mEq/l) 20 L 22 Anion Gap (0 - 20) 10 10 BUN (7 - 18 mg/dL) 42 H 43 H Creatinine (0.6 - 1.3 mg/dL) 1.2 1.3 Glomerular Filtr Rate (90 - 95) 70.1 L 63.7 L Glucose (70 - 110 mg/dL) 322 H 359 H POC Glucose (70 - 110 MG/DL) 292 H Calcium (8.0 - 10.5 mg/dL) 8.2 7.7 L Phosphorus (2.5 - 4.9 MG/DL) 2.6 2.9 Magnesium (1.80 - 2.40 mg/dL) 2.13 2.13 Iron (35 - 150 mcg/dL) 8 L TIBC (260 - 445 mcg/dL) 148 L % Saturation (14 - 34 %) 5.4 L Unsat Iron Binding (mcg/dL) 140 Ferritin (23.9 - 336.2 ng/mL) 2429.2 H Total Bilirubin (0.0 - 1.0 mg/dL) 0.60 AST (15 - 37 IUnit/L) 27 ALT (30 - 65 IUnit/L) 13 L Total Alk Phosphatase (20 - 125 IUnit/L) 150 H Total Protein (6.4 - 8.2 g/dL) 5.6 L Albumin (3.4 - 5.0 g/dL) 1.60 L 1.50 L Vitamin B12 (193 - 986 pg/mL) 5883 H Folate (3.1 - 17.5 ng/mL) 9.5 08/19 08/19 08/19 08/19 0340 0332 0330 0101 Chemistry POC Glucose (70 - 110 MG/DL) 332 H 296 H Hemoglobin A1c (4.8 - 6.0 %A1C) > 14.0 H Ionized Calcium Mitz[place] (1.09 - 1.30 MMOL/L) 1.07 L Hematology WBC (4.5 - 11.0 x10 3/uL) 21.3 H RBC (4.00 - 5.60 x10 6/uL) 2.80 L Hgb (12.5 - 16.9 g/dL) 7.6 L Hct (37.5 - 50.7 %) 22.3 L MCV (81.0 - 99.0 fL) 79.6 L MCH (27.0 - 33.0 pg) 27.1 MCHC (33.0 - 37.0 g/dL) 34.1 RDW (11.5 - 14.5 %) 14.0 Plt Count (150 - 400 x10 3/uL) 227 MPV (7.0 - 9.0 fL) 9.9 H Neut % (Auto) (56.0 - 77.0 %) 89.9 H Lymph % (Auto) (14.0 - 32.0 %) 4.3 L Boundary % (Auto) (4.8 - 9.0 %) 3.1 L Eos % (Auto) (0.3 - 3.7 %) 0.0 L Baso % (Auto) (0.0 - 2.0 %) 0.3 Neut # (Auto) (2.0 - 7.6 x10 3/uL) 19.17 H Lymph # (Auto) (1.0 - 3.8 x10 3/uL) 0.91 L Boundary # (Auto) (0.1 - 0.8 x10 3/uL) 0.67 Eos # (Auto) (0.0 - 0.2 x10 3/uL) 0.01 Baso # (Auto) (0.0 - 0.2 x10 3/uL) 0.07 Abs Immat Gran (auto) (0.00 - 0.03 x10 3/uL) 0. 51 H Add Manual Diff NO Immature Gran % (0.0 - 2.0 %) 2.4 H Nucleated RBC % (0 - 0 %) 0.0 Nucleated RBCs # (Man) (0.0 - 0.1 x10 3/uL) 0.0 0 08/18 08/18 08/18 08/18 2246 2157 1854 1653 Chemistry Sodium (134 - 147 mEq/L) 129 L Potassium (3.4 - 5.0 mEq/L) 3.3 L Chloride (100 - 108 mEq/L) 102 Carbon Dioxide (21 - 33 mEq/l) 20 L Anion Gap (0 - 20) 10 BUN (7 - 18 mg/dL) 44 H Creatinine (0.6 - 1.3 mg/dL) 1.3 Glomerular Filtr Rate (90 - 95) 63.7 L Glucose (70 - 110 mg/dL) 296 H POC Glucose (70 - 110 MG/DL) 265 H 226 H 223 H Calcium (8.0 - 10.5 mg/dL) 7.7 L Phosphorus (2.5 - 4.9 MG/DL) 2.8 Magnesium (1.80 - 2.40 mg/dL) 2.13 Albumin (3.4 - 5.0 g/dL) 1.70 L Microbiology: Date/Time Procedure - Status Source Growth 08/19 1209 Wound Culture - RES ABSCESS 08/19 1209 Anaerobic Culture - RES ABSCESS 08/19 1209 Gram Stain - RES ABSCESS Recent Impressions: ULTRASOUND - DUP LE ART UNI/LTD 08/19 0950 Report Impression - Status: SIGNED Entered: 08/19/2022 1056 IMPRESSION: No sonographic evidence for flow-limiting stenos is in the right lower extremity arterial system. Impression By: [email or web address] - Abraham Ross M.D. Laboratory Tests: 08/18 08/18 08/18 08/18 08/18 1430 1430 1404 1309 1203 Chemistry Sodium (134 - 147 mEq/L) 131 L Potassium (3.4 - 5.0 mEq/L) 3.4 Chloride (100 - 108 mEq/L) 101 Carbon Dioxide (21 - 33 mEq/l) 24 Anion Gap (0 - 20) 9 BUN (7 - 18 mg/dL) 58 H Creatinine (0.6 - 1.3 mg/dL) 1.4 H Glomerular Filtr Rate (90 - 95) 58.3 L Glucose (70 - 110 mg/dL) 207 H POC Glucose (70 - 110 MG/DL) 195 H 213 H 201 H Calcium (8.0 - 10.5 mg/dL) 7.8 L Phosphorus (2.5 - 4.9 MG/DL) 2.2 L Magnesium (1.80 - 2.40 mg/dL) 2.09 Albumin (3.4 - 5.0 g/dL) 1.60 L Triglycerides (40 - 150 mg/dL) 161 H Cholesterol (<200 mg/dL) 90 LDL Cholesterol [place] (0 - 100 mg/dL) 33.0 HDL Cholesterol (32 - 72 mg/dL) < 20.0 L Cholesterol/HDL Ratio (3.43 - 4.97 4.00 RATIO) TSH (0.42 - 5.47) 0.96 Free T4 (0.77 - 1.61 ng/dL) 0.7 L 08/18 08/18 08/18 08/18 08/18 1107 1004 0900 0823 0549 Chemistry POC Glucose (70 - 110 MG/DL) 223 H 304 H 405 H 449 H Hemoglobin A1c (4.8 - 6.0 %A1C) 13.4 H 08/18 08/18 08/18 0549 0305 0207 Blood Gas Puncture Site R Radial O2 Saturation (90 - 100 %) 97.9 ABG pH (7.35 - 7.45) 7.309 L ABG pCO2 (35.0 - 45 mmHg) 22.3 *L ABG pO2 (80 - 100.0 mmHg) 108.0 H ABG PO2/FiO2 Ratio (mm/Hg) 514.28 ABG HCO3 (22.0 - 26.0 MMOL/L) 11.2 *L ABG Total CO2 11.9 ABG Base Excess (-4.0 - 4.0 MMOL/L) -15.1 L Neto Test Positive O2 Delivery Device Room Air FiO2 (%) 21 Chemistry Sodium (134 - 147 mEq/L) 121 *L Potassium (3.4 - 5.0 mEq/L) 4.1 Chloride (100 - 108 mEq/L) 90 L Carbon Dioxide (21 - 33 mEq/l) 15 L Anion Gap (0 - 20) 20 BUN (7 - 18 mg/dL) 62 H Creatinine (0.6 - 1.3 mg/dL) 1.7 H Glomerular Filtr Rate (90 - 95) 46.2 L Glucose (70 - 110 mg/dL) 692 *H Calcium (8.0 - 10.5 mg/dL) 7.5 L Phosphorus (2.5 - 4.9 MG/DL) 4.8 Magnesium (1.80 - 2.40 mg/dL) 2.34 Albumin (3.4 - 5.0 g/dL) 1.60 L Serology Influenza Type A (PCR) (Negative) Negative Influenza Type B (PCR) (Negative) Negative Toxicology Acetone, Quant (Neg - <20 mg/dL) Large - 80-100 mg/dL 08/18 08/18 08/18 0205 0203 0203 Chemistry Sodium (134 - 147 mEq/L) 115 *L Potassium (3.4 - 5.0 mEq/L) 4.4 Chloride (100 - 108 mEq/L) 84 L Carbon Dioxide (21 - 33 mEq/l) 14 L Anion Gap (0 - 20) 21 H BUN (7 - 18 mg/dL) 60 H Creatinine (0.6 - 1.3 mg/dL) 1.9 H Glomerular Filtr Rate (90 - 95) 40.4 L Glucose (70 - 110 mg/dL) 709 *H Lactic Acid (0.4 - 1.9 mmol/L) 1.2 Calcium (8.0 - 10.5 mg/dL) 8.5 Total Bilirubin (0.0 - 1.0 mg/dL) 0.40 Direct Bilirubin (0.0 - 0.30 MG/DL) 0.20 Indirect Bilirubin (MG/DL) 0.20 AST (15 - 37 IUnit/L) 14 L ALT (30 - 65 IUnit/L) 10 L Total Alk Phosphatase (20 - 125 IUnit/L) 157 H Troponin I High Sens (0 - 54 ng/L) 4 Total Protein (6.4 - 8.2 g/dL) 6.4 Albumin (3.4 - 5.0 g/dL) 1.80 L Lipase (13 - 57 U/L) 24 Hematology WBC (4.5 - 11.0 x10 3/uL) 26.5 H RBC (4.00 - 5.60 x10 6/uL) 3.36 L Hgb (12.5 - 16.9 g/dL) 9.0 L Hct (37.5 - 50.7 %) 28.3 L MCV (81.0 - 99.0 fL) 84.2 MCH (27.0 - 33.0 pg) 26.8 L MCHC (33.0 - 37.0 g/dL) 31.8 L RDW (11.5 - 14.5 %) 14.5 Plt Count (150 - 400 x10 3/uL) 355 MPV (7.0 - 9.0 fL) 9.9 H Add Manual Diff YES Seg Neutrophils % (37 - 69 %) 70.0 H Band Neutrophils % (0.0 - 10.0 %) 12.7 H Lymphocytes % (Manual) (23 - 55 %) 3.7 L Monocytes % (Manual) (0 - 10 %) 9.1 Metamyelocytes (0.0 - 0.0 %) 2.7 H Myelocytes (0.0 - 0.0 %) 0.9 H Promyelocytes (0 - 0 %) 0.9 H Platelet Estimate (ADEQUATE THOUSAND) Adequate Plt Morphology Comment NORMAL Polychromasia 3+ Poikilocytosis 3+ Anisocytosis 1+ Macrocytosis 1+ Serology SARS-CoV-2 Ag (Rapid) (Negative) Negative Toxicology Salicylates (0.0 - 20.0 mg/dL) 5.6 Microbiology: Date/Time Procedure - Status Source Growth 08/18 914 Wound Culture - ORD FOOT 08/18 206 Wound Culture - RECD FOOT 08/18 206 Group A Streptococcus Screen (VERONICA) - COMP THROAT 08/18 206 Streptococcus Culture - COMP THROAT 08/18 202 Blood Culture - RES BLOOD 03/27 0203 Blood Culture Gram Stain - RES BLOOD 08/18 0203 Blood Culture - RES BLOOD 08/18 020 Blood Culture Gram Stain - RES BLOOD Recent Impressions: RADIOLOGY - XR CHEST 2 V 08/18 0201 Report Impression - Status: SIGNED Entered: 08/18/2022 0317 IMPRESSION: Ill-defined somewhat nodular opacity measuring 3 .2 cm laterally in the right mid lung suspicious for rounded pneumo ro given provided history, but underlying neoplasm can not be excl uded. Followup radiographs are recommended after appropriate tr eatment in order to document complete resolution and exclude an unde rlying process or neoplasm. Impression By: TipTPPaola Adams M.D. RADIOLOGY - XR FOOT 3 + V RT 08/18 0238 Report Impression - Status: SIGNED Entered: 08/18/2022 0358 IMPRESSION: No acute osseous findings. No convincing evidenc e for osteomyelitis. MRI is more sensitive for detecti ng osteomyelitis. Impression By: Ankur Ladd M.D. CAT SCAN - CT ABD PELVIS W/CONT 08/18 0339 Report Impression - Status: SIGNED Entered: 08/18/2022 0546 IMPRESSION: 3.3 cm hypodensity in the left posterior prostat e or seminal vesicle. This could represent an abscess. Contra st-enhanced MRI of the pelvis would be helpful for further evaluati on. No acute intra-abdominal findings otherwise. Impression By: Ankur Ladd M.D. CAT SCAN - CT LOWER EXTRM W/O C RT 08/18 0645 Report Impression - Status: SIGNED Entered: 08/18/2022 0827 IMPRESSION: Extensive soft tissue edema with mottled gas in the subcutaneous and intramuscular compartments of the foot abhishek tible with gas-forming infection. Disease extends into the visualized distal leg. Impression By: Jamel Dorantes M.D. 1. Diabetes mellitus type 2 uncontrolled with co mplications. 2. DKA 3. Cellulitis and gangrene of the right foot. 4. Sepsis 5. Altered mental status 6. High LFTs Blood sugar 129-76 mg/dL. HbA1c 13.4% Adjust insulin dose. Wound care and IV antibiotics. S/P wound debridement. Electronically Signed by Braxton Chapin MD on 02/14 at 1531 [facility] #:[id number] END OF REPORT 2022-08-31 10:19:00-00:[address] [facility] ([facility]) Hospitalist Progress Note REPORT#:[id number] REPORT STATUS: Signed DATE:08/31/22 TIME: 1019 PATIENT: KARMA ROWLAND UNIT #: [id number] ROOM/BED: [place] [address] : 63 AGE: 56 SEX: M ATTEND: Mikayla Ramires MD ADM AUTHOR: Musa Enriquez MD * ALL edits or amendments must be made on the el [employer]/computer document * Subjective Chief complaint: AMS and right foot infection. s/p extensive debridement. s/p BKA. pain controlled HPI: No acute issues. Review of Systems All systems rev neg: except as noted Objective General VS/I O: Vital Signs: Date Time Temp Pulse Resp B/P B/P Pulse O2 O2 F low FiO2 Mean Ox Delivery Rate 08/31 0715 36.7 79 14 144/69 0.0 99 08/31 0600 80 13 136/65 93 98 08/31 0516 36.4 78 12 133/65 0.0 98 Room air / 0500 79 133/65 93 98 / 0400 78 136/72 98 97 08/31 0300 80 14 126/63 88 97 / 0200 84 14 139/65 93 99 / 0100 79 15 143/65 94 98 04/ 0027 36.5 81 15 138/66 0.0 98 Room air 04/ 0000 83 10 138/66 95 98 / 2300 86 13 128/61 88 97 / 2200 96 130/60 86 96 / 2100 86 128/59 85 96 04/ 2000 94 19 159/77 111 98 / 1944 36.9 95 15 162/76 0.0 100 Room air 08/30 1900 99 19 110 99 08/30 1653 36.9 83 13 160/75 0.0 99 04/08 1303 88 04/08 1300 91 17 154/72 104 97 04/ 1250 87 19 172/78 112 99 08/30 1200 36.8 08/30 1101 85 22 150/68 98 99 24 hour I O ending at 0700: 08/31 0700 08/30 1900 Intake Total Output Total 500 Balance -500 Output, Urine 500 PATIENT WEIGHT: Weight (lb): 154 Weight (oz): 1.65 Weight (kg): 69.900 Medications: Active Meds + DC'd Last 24 Hrs Sodium Polystyrene Sulfonate (KAYEXELATE) 30 GM ONCE ONE PO (DC) Insulin Glargine (Lantus/Semglee) 15 UNIT BEDTIM E SUBQ Insulin Human Lispro (HUMALOG) 5 UNIT AC SUBQ Lidocaine (LIDODERM) 1 PATCH DAILY TOPICAL Insulin Glargine (Lantus/Semglee) 20 UNIT BEDTIM E SUBQ (DC) Hydromorphone HCl (DILAUDID) 1 MG Q3H PRN PRN IV Hydromorphone HCl (DILAUDID) 0.5 MG Q3H PRN PRN IV Meropenem (MEROPENEM) 500 MG Q6H IV Sterile Water (WATER FOR INJECTION) 10 ML Daptomycin (CUBICIN 500MG) 700 MG Q24H IV (CKD) Sodium Chloride (SODIUM CHLORIDE 0.9%) 50 ML Famotidine (PEPCID) 20 MG BID PO (DC) Lorazepam (ATIVAN) 1 MG ONCE PRN IV Sodium Chloride (SODIUM CHLORIDE) 0 ASDIR PRN IV Insulin Human Lispro (HUMALOG) 0 AC HS SUBQ Dextrose/Water (DEXTROSE 10% IN WATER) 125 ML DIR PRN IV (CKD) Dextrose/Water (DEXTROSE 10% IN WATER) 250 ML DIR PRN IV (CKD) Glucagon (GLUCAGON) 1 MG ASDIR PRN IM Dextrose/Water (Dextrose 10% 1,000 mL) 1,000 ML ASDIR IV Acetaminophen (TYLENOL) 650 MG Q6H PRN PRN PO Bisacodyl (DULCOLAX) 10 MG DAILY PRN PRN RECTAL Docusate Sodium (COLACE) 100 MG Q12H PRN PRN PO Ondansetron HCl (ZOFRAN) 4 MG Q6H PRN PRN IV Heparin Sodium (HEPARIN 5000 UNITS/ML) 5,000 UNI T Q8HR SUBQ Physical Exam Head/Eyes: normocephalic ENT: moist mucosal membranes Neck: no JVD Cardiovascular: regular rate rhythm, no heave Respiratory: aerating well, clear to auscultatio n, symmetric expansion, no distress Abdomen: non-tender, normal bowel sounds, soft, no distention Genitourinary: no bladder distention Extremities: R foot in dressing 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 X 3, 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 Considered stroke alert: no Skin: no rash Psychiatry: normal affect, normal judgment/insig ht, normal mood Results Findings/Data: Laboratory Tests 08/31 08/31 08/30 08/30 08/30 0714 0642 1943 1651 1218 Chemistry Sodium (134 - 147 mEq/L) 136 Potassium (3.4 - 5.0 mEq/L) 5.4 H Chloride (100 - 108 mEq/L) 110 H Carbon Dioxide (21 - 33 mEq/l) 22 Anion Gap (0 - 20) 9 BUN (7 - 18 mg/dL) 29 H Creatinine (0.6 - 1.3 mg/dL) 1.2 Glomerular Filtr Rate (90 - 95) 70.1 L Glucose (70 - 110 mg/dL) 129 H POC Glucose (70 - 110 MG/DL) 110 140 H 109 81 Calcium (8.0 - 10.5 mg/dL) 7.2 L Laboratory Tests 08/31 0542 Hematology WBC (4.5 - 11.0 x10 3/uL) 8.7 RBC (4.00 - 5.60 x10 6/uL) 2.50 L Hgb (12.5 - 16.9 g/dL) 6.9 L Hct (37.5 - 50.7 %) 21.7 L MCV (81.0 - 99.0 fL) 86.8 MCH (27.0 - 33.0 pg) 27.6 MCHC (33.0 - 37.0 g/dL) 31.8 L RDW (11.5 - 14.5 %) 14.3 Plt Count (150 - 400 x10 3/uL) 208 MPV (7.0 - 9.0 fL) 9.4 H Neut % (Auto) (56.0 - 77.0 %) 76.3 Lymph % (Auto) (14.0 - 32.0 %) 16.8 Boundary % (Auto) (4.8 - 9.0 %) 4.8 Eos % (Auto) (0.3 - 3.7 %) 1.6 Baso % (Auto) (0.0 - 2.0 %) 0.2 Neut # (Auto) (2.0 - 7.6 x10 3/uL) 6.63 Lymph # (Auto) (1.0 - 3.8 x10 3/uL) 1.46 Boundary # (Auto) (0.1 - 0.8 x10 3/uL) 0.42 Eos # (Auto) (0.0 - 0.2 x10 3/uL) 0.14 Baso # (Auto) (0.0 - 0.2 x10 3/uL) 0.02 Abs Immat Gran (auto) (0.00 - 0.03 x10 3/uL) 0. 03 Add Manual Diff NO Immature Gran % (0.0 - 2.0 %) 0.3 Nucleated RBC % (0 - 0 %) 0.0 Nucleated RBCs # (Man) (0.0 - 0.1 x10 3/uL) 0.0 0 Diagnosis, Assessment Plan Free Text DxA P Notes Free text DxA P notes: DKA DM 2, poorly controlled severe gas gangrene, right foot/necrotizing fasc itis - s/p BKA MRSA bacteremia ERIKA severe hyponatremia likely due to combination of severe hyperglycemia and dehydration from DKA sepsis due to foot infection DM neuropathy HTN anemia, acute due to blood loss left calf hematoma prostatic abscess with Citrobacter and enterococ cus Plans: - admit to ICU - continue IV fluids aggressively - monitor lytes and AG - IV insulin drip for now until gap closes - endo eval - keep on Vancomycin and Zosyn - podiatry eval - d.w Wojciech Hernandez - likely will need debridement - MRI of foot ordered - endo eval for management of DM. - HgbA1c of 13.4 - Urology consulted for hypodensity in prostate - ? abscess, not likely. not much symptoms - lovenox for VTE - check iron panel, TSH - fall precautions - not much pain needs likely due to neuropathy 08/19/2022 - blood cultures showing MRSA - Echo ordered - continue Vancomycin/Clinda and Meropenem. Id following - podiatry planning for I D today. Surgery on s dinora if needed to further debride his lower leg vs amputation. - WBC improving - will type and cross for blood and transfuse i f less than 7 gms - d.w at bedside - patient and is aware that he may require amputation if his tissues are non viable - remains on Insulin drip. blood sugars in the 200-300 range. AG has closed. endocrine is following. - keep in ICU 08/20/2022 - s/p extensive I D of right foot. - tissue cx showing MRSA - follow echo results - WBC remains elevated - continue IV antibiotics - MRI of pelvis pending to eval prostate lesion - MRI of foot pending to eval for osteo. - wean off insulin drip. Subq insulin and slidi ng scale. 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 will likely nee d wound vac at some point - off insulin drip - tolerating diet. d/c IV fluids - pain controlled - awaiting MRI of his foot and pelvis - fall precautions - transfer to floor 08/22/2022 - continue Vanco and Clinda IV - pulse lavage for wound care - pain control - blood sugars reasonably controlled - mobilize - fall precautions - follow hgb and transfuse as needed - awaiting floor transfer 08/23/2022 - transfuse blood for anemia. no overt blood lo ss - continue IV antibiotics - mobilize - pulse lavage to wound. ? wound vac - continue to monitor blood sugars - floor transfer - d/w 08/24/2022 - follow hgb and transfuse as needed - IV antibiotics - anesthesia consult for MRI - blood sugars ok - pulse lavage - await podiatry eval for wound care - ? wound vac - d.w at bedside 08/25/22 Continue abx (Dapto and Teflaro) as per ID Updated Urology on MRI resul ts, Dr. Bass will review images and discuss with family for possible prostate/seminal vesicle abs cess Cont wound care as per Podiatry, may have debrid ement today BP and BS well controlled K+ high, repeat level Hgb 7.3 stable Discussed with at bedside 08/26/2022 - hgb low. will transfuse 2 units - d.w Dr. Pedersen - patient has lost so much ti ssues in his foot that his potential for wound closure and usabilit y of his foot is poor. Recommendations made to proceed with BKA - continue to monitor blood sugars - IV antibitoics - wound care - urology planning for aspiration of prostatic cyst seen on MRI. PSA normal - OOB 08/27/22 s/p transfusion planned for BKA IV antibiotics Wound care DM - managed with insulin DVT prophylaxis 08/28/2022 - noted left leg swelling and pain - patient on Heparin SQ for VTE. will order sta t venous US - planning for right BKA today - continue IV antibiotics per ID - follow blood sugars closely - will need PT/OT and possible rehab post surge ry - d/w at bedside 08/29/2022 - US showing possible hematoma in left calf. no DVT - s/p BKA - no phantom pain at this time - continue IV antibiotics - PT/OT. will need rehab - PM R eval - continue Meropenem and Daptomycin per ID - cultures from prostate noted - ok to transfer to floor - follow hgb and transfuse if hgb less than 7 g ms - Heparin SQ for VTE 08/30/22 s/p BKA. doing well IV antibiotics PT/ OT possible rehab monitor hb transfer to floor / IMCU 08/31/2022 S/p BKA doing okay pain is controlled IV antibiotic therapy PT OT Noted hemoglobin low at 6.8 will transfuse monit or PRBC Potassium was high as well give Kayexalate Recheck lab work later today discussed with nurs e. If stable overall in the nex t 24 hours can be transferred/downgraded to regular floor. DM control. Electronically Signed by Musa Enriquez MD on 0 08/31/22 at 1020 RPT #:[id number] END OF REPORT 2022-08-30 18:03:00-00:[address] [facility] ([facility]) Endocrinology Progress Note REPORT#:[id number] REPORT STATUS: Signed DATE:08/30/22 TIME: 1802 PATIENT: KARMA ROWLAND UNIT #: [id number] ROOM/BED: [place] [address] : 61 AGE: 56 SEX: M ATTEND: Mikayla Ramires MD ADM AUTHOR: Braxton Chapin MD * ALL edits or amendments must be made on the el [employer]/computer document * Subjective Patient reports: no complaints Objective General VS: Last Documented: Result Date Time Pulse Ox 99 08/30 1653 B/P 160/75 08/30 1653 B/P Mean 0.0 08/30 1653 Temp 36.9 08/30 1653 Pulse 83 08/30 1653 Resp 13 08/30 1653 O2 Delivery Room air 08/28 1235 O2 Flow Rate 7 08/28 1222 PATIENT WEIGHT: Weight (lb): 154 Weight (oz): 1.65 Weight (kg): 69.900 Medications: Active Meds + DC'd Last 24 Hrs Insulin Human Lispro (HUMALOG) 5 UNIT AC SUBQ Lidocaine (LIDODERM) 1 PATCH DAILY TOPICAL Insulin Glargine (Lantus/Semglee) 20 UNIT BEDTIM E SUBQ Hydromorphone HCl (DILAUDID) 1 MG Q3H PRN PRN IV Hydromorphone HCl (DILAUDID) 0.5 MG Q3H PRN PRN IV Cefazolin Sodium (KEFZOL OR ANCEF) 1 GM Q8H IV ( DC) Sodium Chloride (SODIUM CHLORIDE) 10 ML Meropenem (MEROPENEM) 500 MG Q6H IV Sterile Water (WATER FOR INJECTION) 10 ML Daptomycin (CUBICIN 500MG) 700 MG Q24H IV (CKD) Sodium Chloride (SODIUM CHLORIDE 0.9%) 50 ML Famotidine (PEPCID) 20 MG BID PO Lorazepam (ATIVAN) 1 MG ONCE PRN IV Sodium Chloride (SODIUM CHLORIDE) 0 ASDIR PRN IV Insulin Human Lispro (HUMALOG) 0 AC HS SUBQ Dextrose/Water (DEXTROSE 10% IN WATER) 125 ML DIR PRN IV (CKD) Dextrose/Water (DEXTROSE 10% IN WATER) 250 ML DIR PRN IV (CKD) Glucagon (GLUCAGON) 1 MG ASDIR PRN IM Dextrose/Water (Dextrose 10% 1,000 mL) 1,000 ML ASDIR IV Acetaminophen (TYLENOL) 650 MG Q6H PRN PRN PO Bisacodyl (DULCOLAX) 10 MG DAILY PRN PRN RECTAL Docusate Sodium (COLACE) 100 MG Q12H PRN PRN PO Ondansetron HCl (ZOFRAN) 4 MG Q6H PRN PRN IV Heparin Sodium (HEPARIN 5000 UNITS/ML) 5,000 UNI T Q8HR SUBQ Physical Exam General appearance: alert, awake Diagnosis, Assessment Plan Hospital course to date: Laboratory Tests: 08/30 08/30 08/30 08/30 08/29 1651 1218 0800 0511 2010 Chemistry Sodium (134 - 147 mEq/L) 136 Potassium (3.4 - 5.0 mEq/L) 5.2 H Chloride (100 - 108 mEq/L) 109 H Carbon Dioxide (21 - 33 mEq/l) 23 Anion Gap (0 - 20) 9 BUN (7 - 18 mg/dL) 33 H Creatinine (0.6 - 1.3 mg/dL) 1.3 Glomerular Filtr Rate (90 - 95) 63.7 L Glucose (70 - 110 mg/dL) 65 L POC Glucose (70 - 110 MG/DL) 109 81 83 81 Calcium (8.0 - 10.5 mg/dL) 7.3 L Phosphorus (2.5 - 4.9 MG/DL) 4.6 Magnesium (1.80 - 2.40 mg/dL) 2.01 Hematology WBC (4.5 - 11.0 x10 3/uL) 12.6 H RBC (4.00 - 5.60 x10 6/uL) 2.55 L Hgb (12.5 - 16.9 g/dL) 7.2 L Hct (37.5 - 50.7 %) 22.7 L MCV (81.0 - 99.0 fL) 89.0 MCH (27.0 - 33.0 pg) 28.2 MCHC (33.0 - 37.0 g/dL) 31.7 L RDW (11.5 - 14.5 %) 14.5 Plt Count (150 - 400 x10 3/uL) 197 MPV (7.0 - 9.0 fL) 9.5 H Neut % (Auto) (56.0 - 77.0 %) 78.7 H Lymph % (Auto) (14.0 - 32.0 %) 13.4 L Boundary % (Auto) (4.8 - 9.0 %) 6.3 Eos % (Auto) (0.3 - 3.7 %) 0.8 Baso % (Auto) (0.0 - 2.0 %) 0.2 Neut # (Auto) (2.0 - 7.6 x10 3/uL) 9.96 H Lymph # (Auto) (1.0 - 3.8 x10 3/uL) 1.69 Boundary # (Auto) (0.1 - 0.8 x10 3/uL) 0.79 Eos # (Auto) (0.0 - 0.2 x10 3/uL) 0.10 Baso # (Auto) (0.0 - 0.2 x10 3/uL) 0.02 Abs Immat Gran (auto) (0.00 - 0.03 0.08 H x10 3/uL) Add Manual Diff NO Immature Gran % (0.0 - 2.0 %) 0.6 Nucleated RBC % (0 - 0 %) 0.0 Nucleated RBCs # (Man) (0.0 - 0.1 0.00 x10 3/uL) Laboratory Tests: 08/29 08/29 08/29 08/29 08/29 1655 1041 0912 0844 0513 Chemistry POC Glucose (70 - 110 MG/DL) 157 H 105 70 70 Prealbumin (16.0 - 40.0 mg/dL) < 5.0 L 08/29 Chemistry Sodium (134 - 147 mEq/L) 136 Potassium (3.4 - 5.0 mEq/L) 4.9 Chloride (100 - 108 mEq/L) 109 H Carbon Dioxide (21 - 33 mEq/l) 23 Anion Gap (0 - 20) 9 BUN (7 - 18 mg/dL) 31 H Creatinine (0.6 - 1.3 mg/dL) 1.5 H Glomerular Filtr Rate (90 - 95) 53.6 L Glucose (70 - 110 mg/dL) 90 POC Glucose (70 - 110 MG/DL) 145 H Calcium (8.0 - 10.5 mg/dL) 7.2 L Phosphorus (2.5 - 4.9 MG/DL) 5.2 H Magnesium (1.80 - 2.40 mg/dL) 1.91 Hematology WBC (4.5 - 11.0 x10 3/uL) 14.2 H RBC (4.00 - 5.60 x10 6/uL) 2.50 L Hgb (12.5 - 16.9 g/dL) 7.1 L Hct (37.5 - 50.7 %) 21.5 L MCV (81.0 - 99.0 fL) 86.0 MCH (27.0 - 33.0 pg) 28.4 MCHC (33.0 - 37.0 g/dL) 33.0 RDW (11.5 - 14.5 %) 14.6 H Plt Count (150 - 400 x10 3/uL) 212 MPV (7.0 - 9.0 fL) 9.2 H Neut % (Auto) (56.0 - 77.0 %) 83.2 H Lymph % (Auto) (14.0 - 32.0 %) 10.0 L Boundary % (Auto) (4.8 - 9.0 %) 5.6 Eos % (Auto) (0.3 - 3.7 %) 0.5 Baso % (Auto) (0.0 - 2.0 %) 0.1 Neut # (Auto) (2.0 - 7.6 x10 3/uL) 11.78 H Lymph # (Auto) (1.0 - 3.8 x10 3/uL) 1.42 Boundary # (Auto) (0.1 - 0.8 x10 3/uL) 0.79 Eos # (Auto) (0.0 - 0.2 x10 3/uL) 0.07 Baso # (Auto) (0.0 - 0.2 x10 3/uL) 0.02 Abs Immat Gran (auto) (0.00 - 0.03 x10 3/uL) 0. 08 H Add Manual Diff NO Immature Gran % (0.0 - 2.0 %) 0.6 Nucleated RBC % (0 - 0 %) 0.0 Nucleated RBCs # (Man) (0.0 - 0.1 x10 3/uL) 0.0 0 Laboratory Tests: 08/28 08/28 08/28 08/28 1709 1302 1218 0624 Chemistry POC Glucose (70 - 110 MG/DL) 103 206 H 185 H 18 0 H 08/28 08/27 08/27 0420 2050 1825 Chemistry Sodium (134 - 147 mEq/L) 137 136 Potassium (3.4 - 5.0 mEq/L) 5.0 5.1 H Chloride (100 - 108 mEq/L) 109 H 109 H Carbon Dioxide (21 - 33 mEq/l) 21 20 L Anion Gap (0 - 20) 12 12 BUN (7 - 18 mg/dL) 30 H 30 H Creatinine (0.6 - 1.3 mg/dL) 1.4 H 1.2 Glomerular Filtr Rate (90 - 95) 58.3 L 70.1 L Glucose (70 - 110 mg/dL) 167 H 161 H POC Glucose (70 - 110 MG/DL) 87 Calcium (8.0 - 10.5 mg/dL) 7.7 L 7.5 L Ionized Calcium Mitzi (1.09 - 1.30 MMOL/L) 1.12 Phosphorus (2.5 - 4.9 MG/DL) 4.8 Magnesium (1.80 - 2.40 mg/dL) 1.89 Total Bilirubin (0.0 - 1.0 mg/dL) 0.40 AST (15 - 37 IUnit/L) 17 ALT (30 - 65 IUnit/L) 9 L Total Alk Phosphatase (20 - 125 IUnit/L) 111 Total Protein (6.4 - 8.2 g/dL) 5.8 L Albumin (3.4 - 5.0 g/dL) 1.30 L Hematology WBC (4.5 - 11.0 x10 3/uL) 13.8 H RBC (4.00 - 5.60 x10 6/uL) 2.83 L Hgb (12.5 - 16.9 g/dL) 8.0 L Hct (37.5 - 50.7 %) 24.0 L MCV (81.0 - 99.0 fL) 84.8 MCH (27.0 - 33.0 pg) 28.3 MCHC (33.0 - 37.0 g/dL) 33.3 RDW (11.5 - 14.5 %) 14.6 H Plt Count (150 - 400 x10 3/uL) 244 MPV (7.0 - 9.0 fL) 9.2 H Neut % (Auto) (56.0 - 77.0 %) 86.7 H Lymph % (Auto) (14.0 - 32.0 %) 8.2 L Boundary % (Auto) (4.8 - 9.0 %) 4.1 L Eos % (Auto) (0.3 - 3.7 %) 0.4 Baso % (Auto) (0.0 - 2.0 %) 0.1 Neut # (Auto) (2.0 - 7.6 x10 3/uL) 11.92 H Lymph # (Auto) (1.0 - 3.8 x10 3/uL) 1.13 Boundary # (Auto) (0.1 - 0.8 x10 3/uL) 0.57 Eos # (Auto) (0.0 - 0.2 x10 3/uL) 0.05 Baso # (Auto) (0.0 - 0.2 x10 3/uL) 0.01 Abs Immat Gran (auto) (0.00 - 0.03 x10 3/uL) 0. 07 H Add Manual Diff NO Immature Gran % (0.0 - 2.0 %) 0.5 Nucleated RBC % (0 - 0 %) 0.0 Nucleated RBCs # (Man) (0.0 - 0.1 x10 3/uL) 0.0 0 Microbiology: Date/Time Procedure - Status Source Growth 08/29 1347 Blood Culture - RECD BLOOD 08/29 1347 Blood Culture - RECD BLOOD Recent Impressions: ULTRASOUND - DUP VEIN UNI/LTD 08/28 0857 Report Impression - Status: SIGNED Entered: 08/28/2022 0927 IMPRESSION: 1. No evidence of venous thrombosis involving le ft lower extremity. 2. Approximately 8 x 2 x 1.3 cm complex fluid co llection along the left upper calf probably representing a smal l hematoma. Impression By: [email or web address] - Hakeem Soto RADIOLOGY - XR FLUOROSCOPY 0-60 MIN 08/28 1101 Report Impression - Status: SIGNED Entered: 08/28/2022 1120 IMPRESSION: Fluoroscopy dosage documentation. See also separ ate procedure notes. Impression By: [email or web address] - Bishop Atkins M.D. Laboratory Tests: 08/27 08/27 08/27 08/27 1728 1147 [id number] Chemistry Sodium (134 - 147 mEq/L) 137 Potassium (3.4 - 5.0 mEq/L) 5.3 H Chloride (100 - 108 mEq/L) 110 H Carbon Dioxide (21 - 33 mEq/l) 20 L Anion Gap (0 - 20) 12 BUN (7 - 18 mg/dL) 33 H Creatinine (0.6 - 1.3 mg/dL) 1.2 Glomerular Filtr Rate (90 - 95) 70.1 L Glucose (70 - 110 mg/dL) 285 H POC Glucose (70 - 110 MG/DL) 148 H 244 H 294 H Calcium (8.0 - 10.5 mg/dL) 7.2 L Phosphorus (2.5 - 4.9 MG/DL) 5.4 H Magnesium (1.80 - 2.40 mg/dL) 1.94 Total Bilirubin (0.0 - 1.0 mg/dL) 0.40 AST (15 - 37 IUnit/L) 12 L ALT (30 - 65 IUnit/L) 9 L Total Alk Phosphatase (20 - 125 IUnit/L) 111 Total Protein (6.4 - 8.2 g/dL) 5.7 L Albumin (3.4 - 5.0 g/dL) 1.30 L 08/27 08/26 0418 2041 Chemistry POC Glucose (70 - 110 MG/DL) 148 H Ionized Calcium Mitzi (1.09 - 1.30 MMOL/L) 1.08 L Hematology WBC (4.5 - 11.0 x10 3/uL) 15.9 H RBC (4.00 - 5.60 x10 6/uL) 3.07 L Hgb (12.5 - 16.9 g/dL) 8.6 L Hct (37.5 - 50.7 %) 25.9 L MCV (81.0 - 99.0 fL) 84.4 MCH (27.0 - 33.0 pg) 28.0 MCHC (33.0 - 37.0 g/dL) 33.2 RDW (11.5 - 14.5 %) 14.6 H Plt Count (150 - 400 x10 3/uL) 250 MPV (7.0 - 9.0 fL) 9.8 H Neut % (Auto) (56.0 - 77.0 %) 88.7 H Lymph % (Auto) (14.0 - 32.0 %) 7.0 L Boundary % (Auto) (4.8 - 9.0 %) 3.3 L Eos % (Auto) (0.3 - 3.7 %) 0.3 Baso % (Auto) (0.0 - 2.0 %) 0.1 Neut # (Auto) (2.0 - 7.6 x10 3/uL) 14.14 H Lymph # (Auto) (1.0 - 3.8 x10 3/uL) 1.11 Boundary # (Auto) (0.1 - 0.8 x10 3/uL) 0.52 Eos # (Auto) (0.0 - 0.2 x10 3/uL) 0.04 Baso # (Auto) (0.0 - 0.2 x10 3/uL) 0.02 Abs Immat Gran (auto) (0.00 - 0.03 x10 3/uL) 0. 10 H Add Manual Diff NO Immature Gran % (0.0 - 2.0 %) 0.6 Nucleated RBC % (0 - 0 %) 0.0 Nucleated RBCs # (Man) (0.0 - 0.1 x10 3/uL) 0.0 0 Microbiology: Date/Time Procedure - Status Source Growth 08/26 2216 Wound Culture - RES ABSCESS GRAM NEGATIVE JAKOB 08/26 2216 Anaerobic Culture - RES ABSCESS 08/26 2216 Gram Stain - RES ABSCESS Laboratory Tests: 08/26 08/26 08/25 0906 0430 2007 Chemistry Sodium (134 - 147 mEq/L) 136 Potassium (3.4 - 5.0 mEq/L) 4.8 Chloride (100 - 108 mEq/L) 109 H Carbon Dioxide (21 - 33 mEq/l) 21 Anion Gap (0 - 20) 11 BUN (7 - 18 mg/dL) 32 H Creatinine (0.6 - 1.3 mg/dL) 1.1 Glomerular Filtr Rate (90 - 95) 77.8 L Glucose (70 - 110 mg/dL) 151 H POC Glucose (70 - 110 MG/DL) 163 H 113 H Calcium (8.0 - 10.5 mg/dL) 7.7 L Ionized Calcium Mitzi (1.09 - 1.30 MMOL/L) 1.11 Phosphorus (2.5 - 4.9 MG/DL) 4.6 Magnesium (1.80 - 2.40 mg/dL) 1.89 Total Bilirubin (0.0 - 1.0 mg/dL) 0.50 AST (15 - 37 IUnit/L) 19 ALT (30 - 65 IUnit/L) 11 L Total Alk Phosphatase (20 - 125 IUnit/L) 149 H Total Protein (6.4 - 8.2 g/dL) 5.5 L Albumin (3.4 - 5.0 g/dL) 1.30 L Hematology WBC (4.5 - 11.0 x10 3/uL) 17.7 H RBC (4.00 - 5.60 x10 6/uL) 2.44 L Hgb (12.5 - 16.9 g/dL) 6.7 L Hct (37.5 - 50.7 %) 20.4 L MCV (81.0 - 99.0 fL) 83.6 MCH (27.0 - 33.0 pg) 27.5 MCHC (33.0 - 37.0 g/dL) 32.8 L RDW (11.5 - 14.5 %) 14.7 H Plt Count (150 - 400 x10 3/uL) 253 MPV (7.0 - 9.0 fL) 9.9 H Neut % (Auto) (56.0 - 77.0 %) 87.5 H Lymph % (Auto) (14.0 - 32.0 %) 7.4 L Boundary % (Auto) (4.8 - 9.0 %) 3.9 L Eos % (Auto) (0.3 - 3.7 %) 0.5 Baso % (Auto) (0.0 - 2.0 %) 0.1 Neut # (Auto) (2.0 - 7.6 x10 3/uL) 15.49 H Lymph # (Auto) (1.0 - 3.8 x10 3/uL) 1.31 Boundary # (Auto) (0.1 - 0.8 x10 3/uL) 0.69 Eos # (Auto) (0.0 - 0.2 x10 3/uL) 0.08 Baso # (Auto) (0.0 - 0.2 x10 3/uL) 0.01 Abs Immat Gran (auto) (0.00 - 0.03 x10 3/uL) 0. 11 H Add Manual Diff NO Immature Gran % (0.0 - 2.0 %) 0.6 Nucleated RBC % (0 - 0 %) 0.0 Nucleated RBCs # (Man) (0.0 - 0.1 x10 3/uL) 0.0 0 Laboratory Tests: 08/25 08/25 08/25 08/25 1723 1111 1044 1044 Chemistry Potassium (3.4 - 5.0 mEq/L) 4.5 POC Glucose (70 - 110 MG/DL) 132 H 143 H Total Creatine Kinase (46 - 171 Units/L) 17 L Urines Urine Color (YEL/STRAW) YELLOW Urine Appearance (CLEAR) TURBID H Urine pH (5.0 - 7.0) 5.0 Ur Specific [place] (1.005 - 1.030) 1.012 Urine Protein (NEGATIVE) 2+ H Urine Glucose (UA) (NEGATIVE) NEGATIVE Urine Ketones (NEGATIVE) NEGATIVE Urine Blood (NEGATIVE) 2+ H Urine Nitrite (NEGATIVE) NEGATIVE Urine Bilirubin (NEGATIVE) NEGATIVE Urine Urobilinogen (0.2 - 1.0 mg/dL) 0.2 Ur Leukocyte Esterase (NEGATIVE) 3+ H Urine RBC (0 - 3 RBC/HPF) 21-50 Urine WBC (0 - 3 WBC/HPF) >50 H Ur Squamous Epith Cells (NONE SEEN /HPF) NONE S EEN Ur Transition Epith Cell (NONE SEEN /HPF) 3+ H Urine Bacteria (NONE SEEN /HPF) TRACE Urine Mucus (NONE SEEN /LPF) TRACE 08/25 04 04/ 0750 0744 2130 Chemistry Sodium (134 - 147 mEq/L) 135 Potassium (3.4 - 5.0 mEq/L) 5.4 H Chloride (100 - 108 mEq/L) 110 H Carbon Dioxide (21 - 33 mEq/l) 19 L Anion Gap (0 - 20) 11 BUN (7 - 18 mg/dL) 25 H Creatinine (0.6 - 1.3 mg/dL) 1.1 Glomerular Filtr Rate (90 - 95) 77.8 L Glucose (70 - 110 mg/dL) 162 H POC Glucose (70 - 110 MG/DL) 166 H 140 H Calcium (8.0 - 10.5 mg/dL) 7.3 L Ionized Calcium Mitzi (1.09 - 1.30 MMOL/L) 0.96 L Phosphorus (2.5 - 4.9 MG/DL) 4.5 Magnesium (1.80 - 2.40 mg/dL) 1.88 Total Bilirubin (0.0 - 1.0 mg/dL) 0.50 AST (15 - 37 IUnit/L) 40 H ALT (30 - 65 IUnit/L) 21 L Total Alk Phosphatase (20 - 125 IUnit/L) 159 H Total Protein (6.4 - 8.2 g/dL) 5.6 L Albumin (3.4 - 5.0 g/dL) 1.30 L Hematology WBC (4.5 - 11.0 x10 3/uL) 17.9 H RBC (4.00 - 5.60 x10 6/uL) 2.64 L Hgb (12.5 - 16.9 g/dL) 7.3 L Hct (37.5 - 50.7 %) 22.6 L MCV (81.0 - 99.0 fL) 85.6 MCH (27.0 - 33.0 pg) 27.7 MCHC (33.0 - 37.0 g/dL) 32.3 L RDW (11.5 - 14.5 %) 15.1 H Plt Count (150 - 400 x10 3/uL) 226 MPV (7.0 - 9.0 fL) 10.7 H Neut % (Auto) (56.0 - 77.0 %) 86.3 H Lymph % (Auto) (14.0 - 32.0 %) 8.1 L Boundary % (Auto) (4.8 - 9.0 %) 4.3 L Eos % (Auto) (0.3 - 3.7 %) 0.5 Baso % (Auto) (0.0 - 2.0 %) 0.1 Neut # (Auto) (2.0 - 7.6 x10 3/uL) 15.44 H Lymph # (Auto) (1.0 - 3.8 x10 3/uL) 1.45 Boundary # (Auto) (0.1 - 0.8 x10 3/uL) 0.77 Eos # (Auto) (0.0 - 0.2 x10 3/uL) 0.09 Baso # (Auto) (0.0 - 0.2 x10 3/uL) 0.02 Abs Immat Gran (auto) (0.00 - 0.03 x10 3/uL) 0. 13 H Add Manual Diff NO Immature Gran % (0.0 - 2.0 %) 0.7 Nucleated RBC % (0 - 0 %) 0.0 Nucleated RBCs # (Man) (0.0 - 0.1 x10 3/uL) 0.0 0 Microbiology: Date/Time Procedure - Status Source Growth 04/03 1044 Urine Culture - WKST URINE 08/26 1043 Blood Culture - RECD BLOOD 08/26 1043 Blood Culture - RECD BLOOD Laboratory Tests: 08/20 08/20 08/20 08/20 08/20 1107 0756 0644 0554 0454 Chemistry Sodium (134 - 147 mEq/L) 137 Potassium (3.4 - 5.0 mEq/L) 3.7 Chloride (100 - 108 mEq/L) 107 Carbon Dioxide (21 - 33 mEq/l) 20 L Anion Gap (0 - 20) 14 BUN (7 - 18 mg/dL) 44 H Creatinine (0.6 - 1.3 mg/dL) 1.2 Glomerular Filtr Rate (90 - 95) 70.1 L Glucose (70 - 110 mg/dL) 212 H POC Glucose (70 - 110 MG/DL) 173 H 192 H 206 H 198 H Calcium (8.0 - 10.5 mg/dL) 7.3 L Ionized Calcium Mitzi (1.09 - 1.30 MMOL/L) 1.04 L Phosphorus (2.5 - 4.9 MG/DL) 3.4 Magnesium (1.80 - 2.40 mg/dL) 2.05 Total Bilirubin (0.0 - 1.0 mg/dL) 0.60 AST (15 - 37 IUnit/L) 51 H ALT (30 - 65 IUnit/L) 22 L Total Alk Phosphatase (20 - 125 IUnit/L) 178 H Total Protein (6.4 - 8.2 g/dL) 5.7 L Albumin (3.4 - 5.0 g/dL) 2.00 L Hematology WBC (4.5 - 11.0 x10 3/uL) 22.8 H RBC (4.00 - 5.60 x10 6/uL) 2.63 L Hgb (12.5 - 16.9 g/dL) 7.1 L Hct (37.5 - 50.7 %) 21.3 L MCV (81.0 - 99.0 fL) 81.0 MCH (27.0 - 33.0 pg) 27.0 MCHC (33.0 - 37.0 g/dL) 33.3 RDW (11.5 - 14.5 %) 14.7 H Plt Count (150 - 400 x10 3/uL) 190 MPV (7.0 - 9.0 fL) 10.0 H Neut % (Auto) (56.0 - 77.0 %) 87.2 H Lymph % (Auto) (14.0 - 32.0 %) 4.8 L Boundary % (Auto) (4.8 - 9.0 %) 2.9 L Eos % (Auto) (0.3 - 3.7 %) 0.0 L Baso % (Auto) (0.0 - 2.0 %) 0.2 Neut # (Auto) (2.0 - 7.6 x10 3/uL) 19.90 H Lymph # (Auto) (1.0 - 3.8 x10 3/uL) 1.10 Boundary # (Auto) (0.1 - 0.8 x10 3/uL) 0.66 Eos # (Auto) (0.0 - 0.2 x10 3/uL) 0.00 Baso # (Auto) (0.0 - 0.2 x10 3/uL) 0.04 Abs Immat Gran (auto) (0.00 - 0.03 1.12 H x10 3/uL) Add Manual Diff NO Immature Gran % (0.0 - 2.0 %) 4.9 H Nucleated RBC % (0 - 0 %) 0.0 Nucleated RBCs # (Man) (0.0 - 0.1 0.00 x10 3/uL) 08/20 08/20 08/19 08/19 08/19 0259 0101 2352 2322 2310 Chemistry Sodium (134 - 147 mEq/L) 132 L Potassium (3.4 - 5.0 mEq/L) 3.7 Chloride (100 - 108 mEq/L) 107 Carbon Dioxide (21 - 33 mEq/l) 21 Anion Gap (0 - 20) 8 BUN (7 - 18 mg/dL) 41 H Creatinine (0.6 - 1.3 mg/dL) 1.2 Glomerular Filtr Rate (90 - 95) 70.1 L Glucose (70 - 110 mg/dL) 184 H POC Glucose (70 - 110 MG/DL) 195 H 181 H 182 H 191 H Calcium (8.0 - 10.5 mg/dL) 7.1 L Phosphorus (2.5 - 4.9 MG/DL) 3.3 Magnesium (1.80 - 2.40 mg/dL) 2.09 Albumin (3.4 - 5.0 g/dL) 1.70 L Hematology Hgb (12.5 - 16.9 g/dL) 7.0 L Hct (37.5 - 50.7 %) 21.8 L 08/19 165 Chemistry Sodium (134 - 147 mEq/L) 133 L Potassium (3.4 - 5.0 mEq/L) 3.6 Chloride (100 - 108 mEq/L) 105 Carbon Dioxide (21 - 33 mEq/l) 21 Anion Gap (0 - 20) 10 BUN (7 - 18 mg/dL) 45 H Creatinine (0.6 - 1.3 mg/dL) 1.2 Glomerular Filtr Rate (90 - 95) 70.1 L Glucose (70 - 110 mg/dL) 247 H POC Glucose (70 - 110 MG/DL) 165 H 209 H 218 H 219 H Calcium (8.0 - 10.5 mg/dL) 7.6 L Phosphorus (2.5 - 4.9 MG/DL) 3.0 Magnesium (1.80 - 2.40 mg/dL) 2.03 Albumin (3.4 - 5.0 g/dL) 1.40 L Hematology WBC (4.5 - 11.0 x10 3/uL) 20.3 H RBC (4.00 - 5.60 x10 6/uL) 2.57 L Hgb (12.5 - 16.9 g/dL) 7.1 L Hct (37.5 - 50.7 %) 20.9 L MCV (81.0 - 99.0 fL) 81.3 MCH (27.0 - 33.0 pg) 27.6 MCHC (33.0 - 37.0 g/dL) 34.0 RDW (11.5 - 14.5 %) 14.3 Plt Count (150 - 400 x10 3/uL) 197 MPV (7.0 - 9.0 fL) 10.2 H Neut % (Auto) (56.0 - 77.0 %) 88.7 H Lymph % (Auto) (14.0 - 32.0 %) 3.8 L Boundary % (Auto) (4.8 - 9.0 %) 3.7 L Eos % (Auto) (0.3 - 3.7 %) 0.0 L Baso % (Auto) (0.0 - 2.0 %) 0.3 Neut # (Auto) (2.0 - 7.6 x10 3/uL) 17.97 H Lymph # (Auto) (1.0 - 3.8 x10 3/uL) 0.76 L Boundary # (Auto) (0.1 - 0.8 x10 3/uL) 0.74 Eos # (Auto) (0.0 - 0.2 x10 3/uL) 0.00 Baso # (Auto) (0.0 - 0.2 x10 3/uL) 0.07 Abs Immat Gran (auto) (0.00 - 0.03 0.71 H x10 3/uL) Add Manual Diff NO Immature Gran % (0.0 - 2.0 %) 3.5 H Nucleated RBC % (0 - 0 %) 0.0 Nucleated RBCs # (Man) (0.0 - 0.1 0.00 x10 3/uL) 08/19 08/19 1622 1601 Chemistry POC Glucose (70 - 110 MG/DL) 232 H Urines Urine Color (YEL/STRAW) YELLOW Urine Appearance (CLEAR) SL CLOUDY Urine pH (5.0 - 7.0) 5.0 Ur Specific [place] (1.005 - 1.030) 1.013 Urine Protein (NEGATIVE) 1+ H Urine Glucose (UA) (NEGATIVE) 3+ H Urine Ketones (NEGATIVE) NEGATIVE Urine Blood (NEGATIVE) 2+ H Urine Nitrite (NEGATIVE) NEGATIVE Urine Bilirubin (NEGATIVE) NEGATIVE Urine Urobilinogen (0.2 - 1.0 mg/dL) 0.2 Ur Leukocyte Esterase (NEGATIVE) 3+ H Urine RBC (0 - 3 RBC/HPF) 4-10 Urine WBC (0 - 3 WBC/HPF) 21-50 H Ur Squamous Epith Cells (NONE SEEN /HPF) 0-5 Urine Bacteria (NONE SEEN /HPF) TRACE Urine Mucus (NONE SEEN /LPF) TRACE Microbiology: Date/Time Procedure - Status Source Growth 08/20 1457 Blood Culture - ORD BLOOD 08/20 1457 Blood Culture - ORD BLOOD 08/19 1709 Blood Culture - ORD BLOOD 08/19 1709 Blood Culture - ORD BLOOD 08/19 1622 Urine Culture - RES URINE Laboratory Tests: 08/19 08/19 08/19 08/19 08/19 1338 1335 1233 1115 1115 Chemistry Sodium (134 - 147 mEq/L) 130 L Potassium (3.4 - 5.0 mEq/L) 3.6 Chloride (100 - 108 mEq/L) 107 Carbon Dioxide (21 - 33 mEq/l) 22 Anion Gap (0 - 20) 5 BUN (7 - 18 mg/dL) 39 H Creatinine (0.6 - 1.3 mg/dL) 1.1 Glomerular Filtr Rate (90 - 95) 77.8 L Glucose (70 - 110 mg/dL) 315 H POC Glucose (70 - 110 MG/DL) 340 H 363 H 326 H Calcium (8.0 - 10.5 mg/dL) 7.6 L Phosphorus (2.5 - 4.9 MG/DL) 2.2 L Magnesium (1.80 - 2.40 mg/dL) 2.06 B-Natriuretic Peptide (0 - 100 PG/ML) 96.0 Albumin (3.4 - 5.0 g/dL) 1.50 L 08/19 08/19 08/19 08/19 0805 0737 0737 0445 Chemistry Sodium (134 - 147 mEq/L) 130 L 130 L Potassium (3.4 - 5.0 mEq/L) 3.3 L 3.0 L Chloride (100 - 108 mEq/L) 103 102 Carbon Dioxide (21 - 33 mEq/l) 20 L 22 Anion Gap (0 - 20) 10 10 BUN (7 - 18 mg/dL) 42 H 43 H Creatinine (0.6 - 1.3 mg/dL) 1.2 1.3 Glomerular Filtr Rate (90 - 95) 70.1 L 63.7 L Glucose (70 - 110 mg/dL) 322 H 359 H POC Glucose (70 - 110 MG/DL) 292 H Calcium (8.0 - 10.5 mg/dL) 8.2 7.7 L Phosphorus (2.5 - 4.9 MG/DL) 2.6 2.9 Magnesium (1.80 - 2.40 mg/dL) 2.13 2.13 Iron (35 - 150 mcg/dL) 8 L TIBC (260 - 445 mcg/dL) 148 L % Saturation (14 - 34 %) 5.4 L Unsat Iron Binding (mcg/dL) 140 Ferritin (23.9 - 336.2 ng/mL) 2429.2 H Total Bilirubin (0.0 - 1.0 mg/dL) 0.60 AST (15 - 37 IUnit/L) 27 ALT (30 - 65 IUnit/L) 13 L Total Alk Phosphatase (20 - 125 IUnit/L) 150 H Total Protein (6.4 - 8.2 g/dL) 5.6 L Albumin (3.4 - 5.0 g/dL) 1.60 L 1.50 L Vitamin B12 (193 - 986 pg/mL) 5883 H Folate (3.1 - 17.5 ng/mL) 9.5 08/19 08/19 08/19 08/19 0340 0332 0330 0101 Chemistry POC Glucose (70 - 110 MG/DL) 332 H 296 H Hemoglobin A1c (4.8 - 6.0 %A1C) > 14.0 H Ionized Calcium Mitzi (1.09 - 1.30 MMOL/L) 1.07 L Hematology WBC (4.5 - 11.0 x10 3/uL) 21.3 H RBC (4.00 - 5.60 x10 6/uL) 2.80 L Hgb (12.5 - 16.9 g/dL) 7.6 L Hct (37.5 - 50.7 %) 22.3 L MCV (81.0 - 99.0 fL) 79.6 L MCH (27.0 - 33.0 pg) 27.1 MCHC (33.0 - 37.0 g/dL) 34.1 RDW (11.5 - 14.5 %) 14.0 Plt Count (150 - 400 x10 3/uL) 227 MPV (7.0 - 9.0 fL) 9.9 H Neut % (Auto) (56.0 - 77.0 %) 89.9 H Lymph % (Auto) (14.0 - 32.0 %) 4.3 L Boundary % (Auto) (4.8 - 9.0 %) 3.1 L Eos % (Auto) (0.3 - 3.7 %) 0.0 L Baso % (Auto) (0.0 - 2.0 %) 0.3 Neut # (Auto) (2.0 - 7.6 x10 3/uL) 19.17 H Lymph # (Auto) (1.0 - 3.8 x10 3/uL) 0.91 L Boundary # (Auto) (0.1 - 0.8 x10 3/uL) 0.67 Eos # (Auto) (0.0 - 0.2 x10 3/uL) 0.01 Baso # (Auto) (0.0 - 0.2 x10 3/uL) 0.07 Abs Immat Gran (auto) (0.00 - 0.03 x10 3/uL) 0. 51 H Add Manual Diff NO Immature Gran % (0.0 - 2.0 %) 2.4 H Nucleated RBC % (0 - 0 %) 0.0 Nucleated RBCs # (Man) (0.0 - 0.1 x10 3/uL) 0.0 0 08/18 08/18 08/18 08/18 2246 2157 1854 1653 Chemistry Sodium (134 - 147 mEq/L) 129 L Potassium (3.4 - 5.0 mEq/L) 3.3 L Chloride (100 - 108 mEq/L) 102 Carbon Dioxide (21 - 33 mEq/l) 20 L Anion Gap (0 - 20) 10 BUN (7 - 18 mg/dL) 44 H Creatinine (0.6 - 1.3 mg/dL) 1.3 Glomerular Filtr Rate (90 - 95) 63.7 L Glucose (70 - 110 mg/dL) 296 H POC Glucose (70 - 110 MG/DL) 265 H 226 H 223 H Calcium (8.0 - 10.5 mg/dL) 7.7 L Phosphorus (2.5 - 4.9 MG/DL) 2.8 Magnesium (1.80 - 2.40 mg/dL) 2.13 Albumin (3.4 - 5.0 g/dL) 1.70 L Microbiology: Date/Time Procedure - Status Source Growth 08/19 121 Wound Culture - RES ABSCESS 08/19 1210 Anaerobic Culture - RES ABSCESS 08/19 121 Gram Stain - RES ABSCESS Recent Impressions: ULTRASOUND - DUP LE Super[employer] UNI/LTD 08/19 0950 Report Impression - Status: SIGNED Entered: 08/19/2022 1056 IMPRESSION: No sonographic evidence for flow-limiting stenos is in the right lower extremity arterial system. Impression By: [email or web address] - Abraham Ross M.D. Laboratory Tests: 08/18 08/18 08/18 08/18 08/18 1430 1430 1404 1309 1203 Chemistry Sodium (134 - 147 mEq/L) 131 L Potassium (3.4 - 5.0 mEq/L) 3.4 Chloride (100 - 108 mEq/L) 101 Carbon Dioxide (21 - 33 mEq/l) 24 Anion Gap (0 - 20) 9 BUN (7 - 18 mg/dL) 58 H Creatinine (0.6 - 1.3 mg/dL) 1.4 H Glomerular Filtr Rate (90 - 95) 58.3 L Glucose (70 - 110 mg/dL) 207 H POC Glucose (70 - 110 MG/DL) 195 H 213 H 201 H Calcium (8.0 - 10.5 mg/dL) 7.8 L Phosphorus (2.5 - 4.9 MG/DL) 2.2 L Magnesium (1.80 - 2.40 mg/dL) 2.09 Albumin (3.4 - 5.0 g/dL) 1.60 L Triglycerides (40 - 150 mg/dL) 161 H Cholesterol (<200 mg/dL) 90 LDL Cholesterol Meas[place] (0 - 100 mg/dL) 33.0 HDL Cholesterol (32 - 72 mg/dL) < 20.0 L Cholesterol/HDL Ratio (3.43 - 4.97 4.00 RATIO) TSH (0.42 - 5.47) 0.96 Free T4 (0.77 - 1.61 ng/dL) 0.7 L 08/18 08/18 08/18 08/18 08/18 1107 1004 0900 0823 0549 Chemistry POC Glucose (70 - 110 MG/DL) 223 H 304 H 405 H 449 H Hemoglobin A1c (4.8 - 6.0 %A1C) 13.4 H 08/18 08/18 08/18 0549 0305 0207 Blood Gas Puncture Site R Radial O2 Saturation (90 - 100 %) 97.9 ABG pH (7.35 - 7.45) 7.309 L ABG pCO2 (35.0 - 45 mmHg) 22.3 *L ABG pO2 (80 - 100.0 mmHg) 108.0 H ABG PO2/FiO2 Ratio (mm/Hg) 514.28 ABG HCO3 (22.0 - 26.0 MMOL/L) 11.2 *L ABG Total CO2 11.9 ABG Base Excess (-4.0 - 4.0 MMOL/L) -15.1 L Neto Test Positive O2 Delivery Device Room Air FiO2 (%) 21 Chemistry Sodium (134 - 147 mEq/L) 121 *L Potassium (3.4 - 5.0 mEq/L) 4.1 Chloride (100 - 108 mEq/L) 90 L Carbon Dioxide (21 - 33 mEq/l) 15 L Anion Gap (0 - 20) 20 BUN (7 - 18 mg/dL) 62 H Creatinine (0.6 - 1.3 mg/dL) 1.7 H Glomerular Filtr Rate (90 - 95) 46.2 L Glucose (70 - 110 mg/dL) 692 *H Calcium (8.0 - 10.5 mg/dL) 7.5 L Phosphorus (2.5 - 4.9 MG/DL) 4.8 Magnesium (1.80 - 2.40 mg/dL) 2.34 Albumin (3.4 - 5.0 g/dL) 1.60 L Serology Influenza Type A (PCR) (Negative) Negative Influenza Type B (PCR) (Negative) Negative Toxicology Acetone, Quant (Neg - <20 mg/dL) Large - 80-100 mg/dL 08/18 08/18 08/18 0205 0203 0203 Chemistry Sodium (134 - 147 mEq/L) 115 *L Potassium (3.4 - 5.0 mEq/L) 4.4 Chloride (100 - 108 mEq/L) 84 L Carbon Dioxide (21 - 33 mEq/l) 14 L Anion Gap (0 - 20) 21 H BUN (7 - 18 mg/dL) 60 H Creatinine (0.6 - 1.3 mg/dL) 1.9 H Glomerular Filtr Rate (90 - 95) 40.4 L Glucose (70 - 110 mg/dL) 709 *H Lactic Acid (0.4 - 1.9 mmol/L) 1.2 Calcium (8.0 - 10.5 mg/dL) 8.5 Total Bilirubin (0.0 - 1.0 mg/dL) 0.40 Direct Bilirubin (0.0 - 0.30 MG/DL) 0.20 Indirect Bilirubin (MG/DL) 0.20 AST (15 - 37 IUnit/L) 14 L ALT (30 - 65 IUnit/L) 10 L Total Alk Phosphatase (20 - 125 IUnit/L) 157 H Troponin I High Sens (0 - 54 ng/L) 4 Total Protein (6.4 - 8.2 g/dL) 6.4 Albumin (3.4 - 5.0 g/dL) 1.80 L Lipase (13 - 57 U/L) 24 Hematology WBC (4.5 - 11.0 x10 3/uL) 26.5 H RBC (4.00 - 5.60 x10 6/uL) 3.36 L Hgb (12.5 - 16.9 g/dL) 9.0 L Hct (37.5 - 50.7 %) 28.3 L MCV (81.0 - 99.0 fL) 84.2 MCH (27.0 - 33.0 pg) 26.8 L MCHC (33.0 - 37.0 g/dL) 31.8 L RDW (11.5 - 14.5 %) 14.5 Plt Count (150 - 400 x10 3/uL) 355 MPV (7.0 - 9.0 fL) 9.9 H Add Manual Diff YES Seg Neutrophils % (37 - 69 %) 70.0 H Band Neutrophils % (0.0 - 10.0 %) 12.7 H Lymphocytes % (Manual) (23 - 55 %) 3.7 L Monocytes % (Manual) (0 - 10 %) 9.1 Metamyelocytes (0.0 - 0.0 %) 2.7 H Myelocytes (0.0 - 0.0 %) 0.9 H Promyelocytes (0 - 0 %) 0.9 H Platelet Estimate (ADEQUATE THOUSAND) Adequate Plt Morphology Comment NORMAL Polychromasia 3+ Poikilocytosis 3+ Anisocytosis 1+ Macrocytosis 1+ Serology SARS-CoV-2 Ag (Rapid) (Negative) Negative Toxicology Salicylates (0.0 - 20.0 mg/dL) 5.6 Microbiology: Date/Time Procedure - Status Source Growth 08/18 914 Wound Culture - ORD FOOT 08/18 206 Wound Culture - RECD FOOT 08/18 206 Group A Streptococcus Screen (VERONICA) - COMP THROAT 08/18 206 Streptococcus Culture - COMP THROAT 08/18 202 Blood Culture - RES BLOOD 08/18 202 Blood Culture Gram Stain - RES BLOOD 08/18 202 Blood Culture - RES BLOOD 08/18 202 Blood Culture Gram Stain - RES BLOOD Recent Impressions: RADIOLOGY - XR CHEST 2 V 08/18 200 Report Impression - Status: SIGNED Entered: 08/18/2022 0317 IMPRESSION: Ill-defined somewhat nodular opacity measuring 3 .2 cm laterally in the right mid lung suspicious for rounded pneumo ro given provided history, but underlying neoplasm can not be excl uded. Followup radiographs are recommended after appropriate tr eatment in order to document complete resolution and exclude an unde rlying process or neoplasm. Impression By: [email or web address] - Dom Adams M.D. RADIOLOGY - XR FOOT 3 + V RT 08/18 0238 Report Impression - Status: SIGNED Entered: 08/18/2022 0358 IMPRESSION: No acute osseous findings. No convincing evidenc e for osteomyelitis. MRI is more sensitive for detecti ng osteomyelitis. Impression By: Ankur Ladd M.D. CAT SCAN - CT ABD PELVIS W/CONT 08/18 0339 Report Impression - Status: SIGNED Entered: 08/18/2022 0546 IMPRESSION: 3.3 cm hypodensity in the left posterior prostat e or seminal vesicle. This could represent an abscess. Contra st-enhanced MRI of the pelvis would be helpful for further evaluati on. No acute intra-abdominal findings otherwise. Impression By: Ankur Ladd M.D. CAT SCAN - CT LOWER EXTRM W/O C RT 08/18 0645 Report Impression - Status: SIGNED Entered: 08/18/2022 08 IMPRESSION: Extensive soft tissue edema with mottled gas in the subcutaneous and intramuscular compartments of the foot abhishek tible with gas-forming infection. Disease extends into the visualized distal leg. Impression By: Jamel Dorantes M.D. 1. Diabetes mellitus type 2 uncontrolled with co mplications. 2. DKA 3. Cellulitis and gangrene of the right foot. 4. Sepsis 5. Altered mental status 6. High LFTs Blood sugar 65-81 mg/dL. HbA1c 13.4% White count 17.9 Sodium 121. Adjust insulin dose. Wound care and IV antibiotics. S/P wound debridement. Electronically Signed by Braxton Chapin MD on 01/14 at 1804 RPT #:[id number] END OF REPORT 2022-08-30 17:43:00-00:00 [facility] ([facility]) Orthopaedic Progress Note REPORT#:[id number] REPORT STATUS: Signed DATE:08/30/22 TIME: 1743 PATIENT: KARMA ROWLAND UNIT #: [id number] ROOM/BED: [facility] : 61 AGE: 56 SEX: M ATTEND: Mikayla Ramires MD ADM AUTHOR: Nixon Leroy MD * ALL edits or amendments must be made on the [employer]/computer document * Subjective Chief complaint: right foot/ankle infection HPI: 56 yo male evaluated at bedside. He is doing wel l 2 days post op. Denies any significant phantom pain. Pain overall i s well controlled. [employer] brace is in place. Transferred to intermediate care. Objective VS: Last Documented: Result Date Time Pulse Ox 99 08/30 1653 B/P 160/75 08/30 1653 B/P Mean 0.0 08/30 1653 Temp 36.9 08/30 1653 Pulse 83 08/30 1653 Resp 13 08/30 1653 O2 Delivery Room air 08/28 1235 O2 Flow Rate 7 08/28 1222 PATIENT WEIGHT: Weight (lb): 154 Weight (oz): 1.65 Weight (kg): 69.900 Medications: Active Meds + DC'd Last 24 Hrs Insulin Human Lispro (HUMALOG) 5 UNIT AC SUBQ Lidocaine (LIDODERM) 1 PATCH DAILY TOPICAL Insulin Glargine (Lantus/Semglee) 20 UNIT BEDTIM E SUBQ Hydromorphone HCl (DILAUDID) 1 MG Q3H PRN PRN IV Hydromorphone HCl (DILAUDID) 0.5 MG Q3H PRN PRN IV Cefazolin Sodium (KEFZOL OR ANCEF) 1 GM Q8H IV ( DC) Sodium Chloride (SODIUM CHLORIDE) 10 ML Meropenem (MEROPENEM) 500 MG Q6H IV Sterile Water (WATER FOR INJECTION) 10 ML Daptomycin (CUBICIN 500MG) 700 MG Q24H IV (CKD) Sodium Chloride (SODIUM CHLORIDE 0.9%) 50 ML Famotidine (PEPCID) 20 MG BID PO Lorazepam (ATIVAN) 1 MG ONCE PRN IV Sodium Chloride (SODIUM CHLORIDE) 0 ASDIR PRN IV Insulin Human Lispro (HUMALOG) 0 AC HS SUBQ Dextrose/Water (DEXTROSE 10% IN WATER) 125 ML DIR PRN IV (CKD) Dextrose/Water (DEXTROSE 10% IN WATER) 250 ML DIR PRN IV (CKD) Glucagon (GLUCAGON) 1 MG ASDIR PRN IM Dextrose/Water (Dextrose 10% 1,000 mL) 1,000 ML ASDIR IV Acetaminophen (TYLENOL) 650 MG Q6H PRN PRN PO Bisacodyl (DULCOLAX) 10 MG DAILY PRN PRN RECTAL Docusate Sodium (COLACE) 100 MG Q12H PRN PRN PO Ondansetron HCl (ZOFRAN) 4 MG Q6H PRN PRN IV Heparin Sodium (HEPARIN 5000 UNITS/ML) 5,000 UNI T Q8HR SUBQ Physical Exam General appearance: alert, awake, oriented Lower leg-right: below knee amputation changes, staple line intact, mild bruising, stump soft and perfused. intact ROM of knee. Results Findings/data: Laboratory Tests 08/30 08/30 08/30 08/30 08/29 1651 1218 0858 0545 2010 Chemistry Sodium (134 - 147 mEq/L) 136 Potassium (3.4 - 5.0 mEq/L) 5.2 H Chloride (100 - 108 mEq/L) 109 H Carbon Dioxide (21 - 33 mEq/l) 23 Anion Gap (0 - 20) 9 BUN (7 - 18 mg/dL) 33 H Creatinine (0.6 - 1.3 mg/dL) 1.3 Glomerular Filtr Rate (90 - 95) 63.7 L Glucose (70 - 110 mg/dL) 65 L POC Glucose (70 - 110 MG/DL) 109 81 83 81 Calcium (8.0 - 10.5 mg/dL) 7.3 L Phosphorus (2.5 - 4.9 MG/DL) 4.6 Magnesium (1.80 - 2.40 mg/dL) 2.01 Laboratory Tests 08/30 0545 Hematology WBC (4.5 - 11.0 x10 3/uL) 12.6 H RBC (4.00 - 5.60 x10 6/uL) 2.55 L Hgb (12.5 - 16.9 g/dL) 7.2 L Hct (37.5 - 50.7 %) 22.7 L MCV (81.0 - 99.0 fL) 89.0 MCH (27.0 - 33.0 pg) 28.2 MCHC (33.0 - 37.0 g/dL) 31.7 L RDW (11.5 - 14.5 %) 14.5 Plt Count (150 - 400 x10 3/uL) 197 MPV (7.0 - 9.0 fL) 9.5 H Neut % (Auto) (56.0 - 77.0 %) 78.7 H Lymph % (Auto) (14.0 - 32.0 %) 13.4 L Boundary % (Auto) (4.8 - 9.0 %) 6.3 Eos % (Auto) (0.3 - 3.7 %) 0.8 Baso % (Auto) (0.0 - 2.0 %) 0.2 Neut # (Auto) (2.0 - 7.6 x10 3/uL) 9.96 H Lymph # (Auto) (1.0 - 3.8 x10 3/uL) 1.69 Boundary # (Auto) (0.1 - 0.8 x10 3/uL) 0.79 Eos # (Auto) (0.0 - 0.2 x10 3/uL) 0.10 Baso # (Auto) (0.0 - 0.2 x10 3/uL) 0.02 Abs Immat Gran (auto) (0.00 - 0.03 x10 3/uL) 0. 08 H Add Manual Diff NO Immature Gran % (0.0 - 2.0 %) 0.6 Nucleated RBC % (0 - 0 %) 0.0 Nucleated RBCs # (Man) (0.0 - 0.1 x10 3/uL) 0.0 0 Diagnosis, Assessment Plan Free text A P: 56 yo male with hx of DM and gas gangrene to right foot and ankle s/p I D now s/ p BKA POD 2. 1. PT/OT- NWB RLE 2. Flotech brace on at all times. 3. Dressing changes as needed. 4. Pain control prn. 5. DVT ppx. 6. Hemovac d/c today. Minimal output. 7. Continue carre per floor. Please call with an y questions or concerns. Electronically Signed by Nixon Leroy MD on 01/14 at 1747 RPT #:[id number] END OF REPORT 2022-08-30 11:46:00-00:00 [facility] Hospitalist Progress Note REPORT#:[id number] REPORT STATUS: Signed DATE:08/30/22 TIME: 1146 PATIENT: KARMA ROWLAND UNIT #: [id number] ROOM/BED: [place] [id number] : 63 AGE: 56 SEX: M ATTEND: Mikayla Ramires MD ADM AUTHOR: Musa Enriquez MD * ALL edits or amendments must be made on the [employer] document * Subjective Chief complaint: AMS and right foot infection. s/p extensive debridement. s/p BKA. pain controlled Review of Systems All systems rev neg: except as noted Objective General VS/I O: Vital Signs: Date Time Temp Pulse Resp B/P B/P Pulse O2 O2 F low FiO2 Mean Ox Delivery Rate 08/30 1944 36.9 95 15 162/76 0.0 100 Room air 08/30 1653 36.9 83 13 160/75 0.0 99 04/08 1303 88 /08 1300 91 17 154/72 104 97 04/08 1250 87 19 172/78 112 99 04/08 1200 36.8 04/08 1101 85 22 150/68 98 99 04/08 1000 86 15 171/78 112 99 04/08 0916 84 13 151/69 99 99 04/08 0800 37.0 04/08 0756 83 124/58 83 04/08 0754 83 122/58 84 04/08 0400 36.9 04/08 0300 87 17 04/08 0200 83 17 110/56 78 04/08 0100 84 17 04/08 0025 89 17 127/58 84 99 04/08 0000 36.9 04/ 2300 80 16 98 04/ 2200 83 17 98 04/ 2100 93 21 100 24 hour I O ending at 0700: 08/30 0700 04 1900 Intake Total 270.00 1020.00 Output Total 750 4975 Balance -480.00 -3955.00 Intake, IV 30.00 80.00 Intake, Oral 240 240 Intake, Oral 400 Supplement Intake, Other 300 Number 2 1 Bowel Movements Output, 0 Drainage Output, Urine 750 4975 PATIENT WEIGHT: Weight (lb): 154 Weight (oz): 1.65 Weight (kg): 69.900 Medications: Active Meds + DC'd Last 24 Hrs Insulin Glargine (Lantus/Semglee) 15 UNIT BEDTIM E SUBQ Insulin Human Lispro (HUMALOG) 5 UNIT AC SUBQ Lidocaine (LIDODERM) 1 PATCH DAILY TOPICAL Insulin Glargine (Lantus/Semglee) 20 UNIT BEDTIM E SUBQ (DC) Hydromorphone HCl (DILAUDID) 1 MG Q3H PRN PRN IV Hydromorphone HCl (DILAUDID) 0.5 MG Q3H PRN PRN IV Cefazolin Sodium (KEFZOL OR ANCEF) 1 GM Q8H IV ( DC) Sodium Chloride (SODIUM CHLORIDE) 10 ML Meropenem (MEROPENEM) 500 MG Q6H IV Sterile Water (WATER FOR INJECTION) 10 ML Daptomycin (CUBICIN 500MG) 700 MG Q24H IV (CKD) Sodium Chloride (SODIUM CHLORIDE 0.9%) 50 ML Famotidine (PEPCID) 20 MG BID PO Lorazepam (ATIVAN) 1 MG ONCE PRN IV Sodium Chloride (SODIUM CHLORIDE) 0 ASDIR PRN IV Insulin Human Lispro (HUMALOG) 0 AC HS SUBQ Dextrose/Water (DEXTROSE 10% IN WATER) 125 ML DIR PRN IV (CKD) Dextrose/Water (DEXTROSE 10% IN WATER) 250 ML DIR PRN IV (CKD) Glucagon (GLUCAGON) 1 MG ASDIR PRN IM Dextrose/Water (Dextrose 10% 1,000 mL) 1,000 ML ASDIR IV Acetaminophen (TYLENOL) 650 MG Q6H PRN PRN PO Bisacodyl (DULCOLAX) 10 MG DAILY PRN PRN RECTAL Docusate Sodium (COLACE) 100 MG Q12H PRN PRN PO Ondansetron HCl (ZOFRAN) 4 MG Q6H PRN PRN IV Heparin Sodium (HEPARIN 5000 UNITS/ML) 5,000 UNI T Q8HR SUBQ Physical Exam Head/Eyes: normocephalic ENT: moist mucosal membranes Neck: no JVD Cardiovascular: regular rate rhythm, no heave Respiratory: aerating well, clear to auscultatio n, symmetric expansion, no distress Abdomen: non-tender, normal bowel sounds, soft, no distention Genitourinary: no bladder distention Extremities: R foot in dressing 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 X 3, 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 Considered stroke alert: no Skin: no rash Psychiatry: normal affect, normal judgment/insig ht, normal mood Diagnosis, Assessment Plan Free Text DxA P Notes Free text DxA P notes: DKA DM 2, poorly controlled severe gas gangrene, right foot/necrotizing fasc itis - s/p BKA MRSA bacteremia ERIKA severe hyponatremia likely due to combination of severe hyperglycemia and dehydration from DKA sepsis due to foot infection DM neuropathy HTN anemia, acute due to blood loss left calf hematoma prostatic abscess with Citrobacter and enterococ cus Plans: - admit to ICU - continue IV fluids aggressively - monitor lytes and AG - IV insulin drip for now until gap closes - endo eval - keep on Vancomycin and Zosyn - podiatry eval - d.w Wojciech Hernandez - likely will need debridement - MRI of foot ordered - endo eval for management of DM. - HgbA1c of 13.4 - Urology consulted for hypodensity in prostate - ? abscess, not likely. not much symptoms - lovenox for VTE - check iron panel, TSH - fall precautions - not much pain needs likely due to neuropathy 08/19/2022 - blood cultures showing MRSA - Echo ordered - continue Vancomycin/Clinda and Meropenem. Id following - podiatry planning for I D today. Surgery on s dinora if needed to further debride his lower leg vs amputation. - WBC improving - will type and cross for blood and transfuse i f less than 7 gms - d.w at bedside - patient and is aware that he may require amputation if his tissues are non viable - remains on Insulin drip. blood sugars in the 200-300 range. AG has closed. endocrine is following. - keep in ICU 08/20/2022 - s/p extensive I D of right foot. - tissue cx showing MRSA - follow echo results - WBC remains elevated - continue IV antibiotics - MRI of pelvis pending to eval prostate lesion - MRI of foot pending to eval for osteo. - wean off insulin drip. Subq insulin and slidi ng scale. endo following - pain controlled - will likely need wound vac and half-way IV a ntibiotic therapy - d/w at bedside - PT/OT 08/21/2022 - continue IV antibitoics - wound care with pulse lavage. will likely nee d wound vac at some point - off insulin drip - tolerating diet. d/c IV fluids - pain controlled - awaiting MRI of his foot and pelvis - fall precautions - transfer to floor 08/22/2022 - continue Vanco and Clinda IV - pulse lavage for wound care - pain control - blood sugars reasonably controlled - mobilize - fall precautions - follow hgb and transfuse as needed - awaiting floor transfer 08/23/2022 - transfuse blood for anemia. no overt blood lo ss - continue IV antibiotics - mobilize - pulse lavage to wound. ? wound vac - continue to monitor blood sugars - floor transfer - d/w 08/24/2022 - follow hgb and transfuse as needed - IV antibiotics - anesthesia consult for MRI - blood sugars ok - pulse lavage - await podiatry eval for wound care - ? wound vac - d.w at bedside 08/25/22 Continue abx (Dapto and Teflaro) as per ID Updated Urology on MRI resul ts, Dr. Bass will review images and discuss with family for possible prostate/seminal vesicle abs cess Cont wound care as per Podiatry, may have debrid ement today BP and BS well controlled K+ high, repeat level Hgb 7.3 stable Discussed with at bedside 08/26/2022 - hgb low. will transfuse 2 units - d.w Dr. Pedersen - patient has lost so much ti ssues in his foot that his potential for wound closure and usabilit y of his foot is poor. Recommendations made to proceed with BKA - continue to monitor blood sugars - IV antibitoics - wound care - urology planning for aspiration of prostatic cyst seen on MRI. PSA normal - OOB 08/27/22 s/p transfusion planned for BKA IV antibiotics Wound care DM - managed with insulin DVT prophylaxis 08/28/2022 - noted left leg swelling and pain - patient on Heparin SQ for VTE. will order sta t venous US - planning for right BKA today - continue IV antibiotics per ID - follow blood sugars closely - will need PT/OT and possible rehab post surge ry - d/w at bedside 08/29/2022 - US showing possible hematoma in left calf. no DVT - s/p BKA - no phantom pain at this time - continue IV antibiotics - PT/OT. will need rehab - PM R eval - continue Meropenem and Daptomycin per ID - cultures from prostate noted - ok to transfer to floor - follow hgb and transfuse if hgb less than 7 g ms - Heparin SQ for VTE 08/30/22 s/p BKA. doing well IV antibiotics PT/ OT possible rehab monitor hb transfer to floor / IMCU Electronically Signed by Musa Enriquez MD on 0 08/30/22 at 2047 RPT #:[id number] END OF REPORT 2022-08-30 06:58:00-00:[address] [facility] ([facility]) Rehab Progress Note REPORT#:[id number] REPORT STATUS: Signed DATE:08/30/22 TIME: 657 PATIENT: KARMA ROWLAND UNIT #: [id number] ROOM/BED: [place] [address] : 61 AGE: 56 SEX: M ATTEND: Mikayla Ramires MD ADM AUTHOR: Guero Candelaria * ALL edits or amendments must be made on the [employer]/computer document * Subjective Chief complaint: Rehab follow-up Seen in ICU Doing well Waiting on breakfast States pain fairly well controlled Denies MCBRIDE/N/V/D/CP 14 systems reviewed and neg. except that above. Objective General VS: Vital Signs: Date Time Temp Pulse Resp B/P B/P Pulse O2 O2 F low FiO2 Mean Ox Delivery Rate 08/30 0400 98.4 08/30 0300 87 17 08/30 0200 83 17 110/56 78 08/30 0100 84 17 08/30 0025 89 17 127/58 84 99 04/ 0000 98.4 08/29 2300 80 16 98 08/29 2200 83 17 98 08/29 2100 93 21 100 08/29 2001 93 17 141/65 94 100 08/29 2000 98.6 08/29 1900 91 13 163/75 108 99 08/29 1851 92 22 98 04/07 1800 90 19 158/76 109 99 04/07 1700 88 12 145/68 98 98 04/07 1600 98.2 04/ 1600 85 14 138/65 93 95 04/07 1500 80 12 110/64 83 98 04/07 1401 88 15 121/57 82 97 04/07 1300 93 20 166/76 109 100 04/07 1200 98.2 04/07 1200 91 14 165/81 115 98 04/07 1115 87 17 161/77 110 98 04/07 1112 86 98 04/07 1100 23 04/07 1000 86 13 145/68 98 98 04/07 0901 87 159/61 93 100 04/07 0900 87 21 98 04/07 0801 78 14 133/66 94 98 04/07 0800 98.2 PATIENT WEIGHT: Weight (lb): 154 Weight (oz): 1.65 Weight (kg): 69.900 Medications: Active Meds + DC'd Last 24 Hrs Insulin Human Lispro (HUMALOG) 5 UNIT AC SUBQ Lidocaine (LIDODERM) 1 PATCH DAILY TOPICAL Insulin Glargine (Lantus/Semglee) 20 UNIT BEDTIM E SUBQ Hydromorphone HCl (DILAUDID) 1 MG Q3H PRN PRN IV Hydromorphone HCl (DILAUDID) 0.5 MG Q3H PRN PRN IV Cefazolin Sodium (KEFZOL OR ANCEF) 1 GM Q8H IV ( DC) Sodium Chloride (SODIUM CHLORIDE) 10 ML Meropenem (MEROPENEM) 500 MG Q6H IV Sterile Water (WATER FOR INJECTION) 10 ML Daptomycin (CUBICIN 500MG) 700 MG Q24H IV (CKD) Sodium Chloride (SODIUM CHLORIDE 0.9%) 50 ML Famotidine (PEPCID) 20 MG BID PO Lorazepam (ATIVAN) 1 MG ONCE PRN IV Sodium Chloride (SODIUM CHLORIDE) 0 ASDIR PRN IV Insulin Human Lispro (HUMALOG) 7 UNIT AC SUBQ (D C) Insulin Human Lispro (HUMALOG) 0 AC HS SUBQ Dextrose/Water (DEXTROSE 10% IN WATER) 125 ML DIR PRN IV (CKD) Dextrose/Water (DEXTROSE 10% IN WATER) 250 ML DIR PRN IV (CKD) Glucagon (GLUCAGON) 1 MG ASDIR PRN IM Dextrose/Water (Dextrose 10% 1,000 mL) 1,000 ML ASDIR IV Acetaminophen (TYLENOL) 650 MG Q6H PRN PRN PO Bisacodyl (DULCOLAX) 10 MG DAILY PRN PRN RECTAL Docusate Sodium (COLACE) 100 MG Q12H PRN PRN PO Ondansetron HCl (ZOFRAN) 4 MG Q6H PRN PRN IV Heparin Sodium (HEPARIN 5000 UNITS/ML) 5,000 UNI T Q8HR SUBQ Functional Progress Functional progress: Bed Mobility - Rolling: Minimal Assistance Bed Mobility - Supine to Sit: Moderate Assistan ce Bed Mobility - Sit to Supine: Moderate Assistan ce Scooting: Moderate Assistance Sit to Stand: Dependent Static Sitting: Minimal Assistance Dynamic Sitting: Minimal Assistance Static Standing: Dependent Dynamic Standing: Not Tested Functional Exercises: SUPINE EXERCISES Durable Medical Equipment Currently Utilized: Hospital Bed RW Effects of Treatment: Function Improved Safety awareness improved Self management improved Post [place] Precautions: In Bed, rails Up Bed Alarm [employer] Operator Light in Reach Nursing Notified Pulse OX in Place Document Pain/Education: No Functional Mob.Cmt: Pt SEEN FOR RE-EVAL AND FUN C MOBILITY. SEE RE- EVAL FOR DETAILS. 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 X 3, CNII-XII intact Results Findings/Data: Laboratory Tests: 08/3045 2010 1655 1041 0912 Chemistry Sodium (134 - 147 mEq/L) 136 Potassium (3.4 - 5.0 mEq/L) 5.2 H Chloride (100 - 108 mEq/L) 109 H Carbon Dioxide (21 - 33 mEq/l) 23 Anion Gap (0 - 20) 9 BUN (7 - 18 mg/dL) 33 H Creatinine (0.6 - 1.3 mg/dL) 1.3 Glomerular Filtr Rate (90 - 95) 63.7 L Glucose (70 - 110 mg/dL) 65 L POC Glucose (70 - 110 MG/DL) 81 157 H 105 70 Calcium (8.0 - 10.5 mg/dL) 7.3 L Phosphorus (2.5 - 4.9 MG/DL) 4.6 Magnesium (1.80 - 2.40 mg/dL) 2.01 Hematology WBC (4.5 - 11.0 x10 3/uL) 12.6 H RBC (4.00 - 5.60 x10 6/uL) 2.55 L Hgb (12.5 - 16.9 g/dL) 7.2 L Hct (37.5 - 50.7 %) 22.7 L MCV (81.0 - 99.0 fL) 89.0 MCH (27.0 - 33.0 pg) 28.2 MCHC (33.0 - 37.0 g/dL) 31.7 L RDW (11.5 - 14.5 %) 14.5 Plt Count (150 - 400 x10 3/uL) 197 MPV (7.0 - 9.0 fL) 9.5 H Neut % (Auto) (56.0 - 77.0 %) 78.7 H Lymph % (Auto) (14.0 - 32.0 %) 13.4 L Boundary % (Auto) (4.8 - 9.0 %) 6.3 Eos % (Auto) (0.3 - 3.7 %) 0.8 Baso % (Auto) (0.0 - 2.0 %) 0.2 Neut # (Auto) (2.0 - 7.6 x10 3/uL) 9.96 H Lymph # (Auto) (1.0 - 3.8 x10 3/uL) 1.69 Boundary # (Auto) (0.1 - 0.8 x10 3/uL) 0.79 Eos # (Auto) (0.0 - 0.2 x10 3/uL) 0.10 Baso # (Auto) (0.0 - 0.2 x10 3/uL) 0.02 Abs Immat Gran (auto) (0.00 - 0.03 0.08 H x10 3/uL) Add Manual Diff NO Immature Gran % (0.0 - 2.0 %) 0.6 Nucleated RBC % (0 - 0 %) 0.0 Nucleated RBCs # (Man) (0.0 - 0.1 0.00 x10 3/uL) 08/29 0844 Chemistry POC Glucose (70 - 110 MG/DL) 70 Diagnosis, Assessment Plan Free Text A P: 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 and necrotizing fasciitis S/p surgical debridement and washout S/p right BKA Significant impairment in self-care, ADLs and fu nctional mobility Impaired mobility and gait Postoperative pain Diabetic polyneuropathy DKA, DM 2, poorly controlled Minimal PAD MRSA bacteremia/sepsis ERIKA Severe hyponatremia-resolved HTN Acute on chronic anemia requiring multiple trans fusions Left calf hematoma Edema and clinical arthritis left ankle Prostatic abscess s/p transrectal ultrasound asp iration of abscess and transurethral resection of prostate and unroofin g of abscess Echo: EF 55-59%, grade 1 diastolic dysfunction Hypoalbuminemia Plan: -Continue PT and OT -Case management for safe discharge planning. -Decubitus prevention -Nutrition, monitor the patient's p.o. intake, a lbumin 1.3, check prealbumin, dietary consultation, protein supplements promot e healing -Strict fall and safety precaution -DVT prophylaxis-subcutaneous heparin -GI prophylaxis on Pepcid -Early mobilization-OOB to chair -Work on bed mobility, transfer training , ADLs, pre-gait and gait exercises as tolerable. -Increase endurance and strength -Pain management-patient requiring IV Dilaudid -Glycemic control as per endo-blood sugars much improved -Monitor labs-WBC trending down, hemoglo bin 7.1, sodium normal, creatinine 1.5 -Has received multiple units of PRBCs-check CBC in a.m. -ID requesting JIMENA to rule out endocarditis, con tinue ABX -Patient on CBI and urine is clear- following -Edema and clinical arthritis left ankle-Lidoder m patch and Oralia wrap -NWB right BKA, continue [employer] orthotic, I wi ll examine incision on Thursday -Right BKA amputee rehab -Excellent candidate for inpatient rehab, admit preauthorization if okay with rehabilitation admissions. Referral to 5 E. reha b ordered. Patient and would like to stay here at [facility] rehab. -We will continue to monitor patients progress and make further recommendations Total time was 33 minutes > 50% with patient per forming physical examination, discussing plan of care, goals, therapies, progr ess, medications, labs. All questions answered Rehab attestation: . Electronically Signed by Guero Candelaria on 0 08/31/22 at 0920 RPT #:[id number] END OF REPORT 2022-08-29 19:46:00-00:00 HCACL [facility] Podiatry Progress Note REPORT#:[id number] REPORT STATUS: Signed DATE:08/29/22 TIME: 1945 PATIENT: KARMA ROWLAND UNIT #: [id number] ROOM/BED: [facility] : 61 AGE: 56 SEX: M ATTEND: Mikayla Ramires MD ADM AUTHOR: Liam Pedersen DPM * ALL edits or amendments must be made on the [employer]/computer document * Subjective Chief complaint: seen at bedside,. family memebers next to him denies having any pain foot covered and protected and offloaded drainage noted serosang. increased warmth Patient reports: no confusion, no constipation, no diarrhea, no fatigue, no headache, no heartburn, no itching Objective General VS: Last Documented: Result Date Time Pulse Ox 99 08/29 1900 B/P 163/75 08/29 1900 B/P Mean 108 08/29 1900 Pulse 91 08/29 1900 Resp 13 08/29 1900 Temp 36.8 08/29 1600 O2 Delivery Room air 08/28 1235 O2 Flow Rate 7 08/28 1222 PATIENT WEIGHT: Weight (lb): 154 Weight (oz): 1.65 Weight (kg): 69.900 Medications: Active Meds + DC'd Last 24 Hrs Insulin Human Lispro (HUMALOG) 5 UNIT AC SUBQ Lidocaine (LIDODERM) 1 PATCH DAILY TOPICAL Insulin Glargine (Lantus/Semglee) 20 UNIT BEDTIM E SUBQ Hydromorphone HCl (DILAUDID) 1 MG Q3H PRN PRN IV Hydromorphone HCl (DILAUDID) 0.5 MG Q3H PRN PRN IV Cefazolin Sodium (KEFZOL OR ANCEF) 1 GM Q8H IV Sodium Chloride (SODIUM CHLORIDE) 10 ML Meropenem (MEROPENEM) 500 MG Q6H IV Sterile Water (WATER FOR INJECTION) 10 ML Daptomycin (CUBICIN 500MG) 700 MG Q24H IV (CKD) Sodium Chloride (SODIUM CHLORIDE 0.9%) 50 ML Famotidine (PEPCID) 20 MG BID PO Lorazepam (ATIVAN) 1 MG ONCE PRN IV Sodium Chloride (SODIUM CHLORIDE) 0 ASDIR PRN IV Insulin Human Lispro (HUMALOG) 7 UNIT AC SUBQ (D C) Insulin Human Lispro (HUMALOG) 0 AC HS SUBQ Dextrose/Water (DEXTROSE 10% IN WATER) 125 ML DIR PRN IV (CKD) Dextrose/Water (DEXTROSE 10% IN WATER) 250 ML DIR PRN IV (CKD) Glucagon (GLUCAGON) 1 MG ASDIR PRN IM Dextrose/Water (Dextrose 10% 1,000 mL) 1,000 ML ASDIR IV Acetaminophen (TYLENOL) 650 MG Q6H PRN PRN PO Bisacodyl (DULCOLAX) 10 MG DAILY PRN PRN RECTAL Docusate Sodium (COLACE) 100 MG Q12H PRN PRN PO Ondansetron HCl (ZOFRAN) 4 MG Q6H PRN PRN IV Heparin Sodium (HEPARIN 5000 UNITS/ML) 5,000 UNI T Q8HR SUBQ Physical Exam General appearance: alert, awake, oriented Wound/incision: Location: Right foot s/p BKA DP and PT pulses very weak left foot. Sensation is greatly decreased on the left foot. Left foot has no ulcers but has OA changes at an kle with some chronic edema. LE vascular pulse assess: Nonpalpable L posterior tibialis, Nonpalpable L dorsalis pedis Considered stroke alert: no Results Findings/Data: Laboratory Tests: 08/29 08/29 08/29 08/29 08/29 1655 1041 0912 0844 0513 Chemistry POC Glucose (70 - 110 MG/DL) 157 H 105 70 70 Prealbumin (16.0 - 40.0 mg/dL) < 5.0 L 08/29 Chemistry Sodium (134 - 147 mEq/L) 136 Potassium (3.4 - 5.0 mEq/L) 4.9 Chloride (100 - 108 mEq/L) 109 H Carbon Dioxide (21 - 33 mEq/l) 23 Anion Gap (0 - 20) 9 BUN (7 - 18 mg/dL) 31 H Creatinine (0.6 - 1.3 mg/dL) 1.5 H Glomerular Filtr Rate (90 - 95) 53.6 L Glucose (70 - 110 mg/dL) 90 POC Glucose (70 - 110 MG/DL) 145 H Calcium (8.0 - 10.5 mg/dL) 7.2 L Phosphorus (2.5 - 4.9 MG/DL) 5.2 H Magnesium (1.80 - 2.40 mg/dL) 1.91 Hematology WBC (4.5 - 11.0 x10 3/uL) 14.2 H RBC (4.00 - 5.60 x10 6/uL) 2.50 L Hgb (12.5 - 16.9 g/dL) 7.1 L Hct (37.5 - 50.7 %) 21.5 L MCV (81.0 - 99.0 fL) 86.0 MCH (27.0 - 33.0 pg) 28.4 MCHC (33.0 - 37.0 g/dL) 33.0 RDW (11.5 - 14.5 %) 14.6 H Plt Count (150 - 400 x10 3/uL) 212 MPV (7.0 - 9.0 fL) 9.2 H Neut % (Auto) (56.0 - 77.0 %) 83.2 H Lymph % (Auto) (14.0 - 32.0 %) 10.0 L Boundary % (Auto) (4.8 - 9.0 %) 5.6 Eos % (Auto) (0.3 - 3.7 %) 0.5 Baso % (Auto) (0.0 - 2.0 %) 0.1 Neut # (Auto) (2.0 - 7.6 x10 3/uL) 11.78 H Lymph # (Auto) (1.0 - 3.8 x10 3/uL) 1.42 Boundary # (Auto) (0.1 - 0.8 x10 3/uL) 0.79 Eos # (Auto) (0.0 - 0.2 x10 3/uL) 0.07 Baso # (Auto) (0.0 - 0.2 x10 3/uL) 0.02 Abs Immat Gran (auto) (0.00 - 0.03 x10 3/uL) 0. 08 H Add Manual Diff NO Immature Gran % (0.0 - 2.0 %) 0.6 Nucleated RBC % (0 - 0 %) 0.0 Nucleated RBCs # (Man) (0.0 - 0.1 x10 3/uL) 0.0 0 Diagnosis, Assessment Plan Free Text A P: Gas gangrene right foot s/p BKA Diabetes with peripheral neuropathy Minimal peripheral vascular diseese Sepsis DKA Edema and arthritis left ankle IV antibiotics Monitor leukocytosis NIAS: minimal PVD right 08/18 wound culture: MRSA (This one is not accura te, it is of skin that was intact) 08/19 OR culture: MRSA blood cultures: MRSA dc lavage oralia wrap compression left ankle venous u/s left no dvt Electronically Signed by Liam Pedersen DPM on 0 08/29/22 at 1948 RPT #:[id number] END OF REPORT 2022-08-29 18:05:00-00:00 [facility]L [facility]) Cardiology Progress Note REPORT#:[id number] REPORT STATUS: Signed DATE:08/29/22 TIME: 180 PATIENT: KARMA ROWLAND UNIT #: [id number] ROOM/BED: [facility] : 63 AGE: 56 SEX: M ATTEND: Mikayal Ramires MD ADM AUTHOR: Gianni Parham MD * ALL edits or amendments must be made on the [employer] document * Subjective Chief complaint: foot infection Comments: Doing better today, no new events Telemetry: Sinus rhythm Objective General VS/I O: 24 hour I O ending at 0700: 07 0700 04/ 1900 Intake Total 6310.00 560.00 Output Total 4650 2700 Balance 1660.00 -2140.00 Intake, IV 60.00 80.00 Intake, Oral 250 480 Intake, Other 6000 Intake, Tube Irrigant Output, Urine 4650 2700 Patient 154 lb Weight Weight Bed scale Measurement Method Vital Signs: Date Time Temp Pulse Resp B/P B/P Pulse O2 O2 F low FiO2 Mean Ox Delivery Rate 04/07 1700 88 12 145/68 98 98 04/07 1600 98.2 04/07 1600 85 14 138/65 93 95 04/07 1500 80 12 110/64 83 98 04/07 1401 88 15 121/57 82 97 04/07 1300 93 20 166/76 109 100 04/07 1200 98.2 04/07 1200 91 14 165/81 115 98 04/07 1115 87 17 161/77 110 98 04/07 1112 86 98 04/07 1100 23 04/07 1000 86 13 145/68 98 98 04/07 0901 87 159/61 93 100 04/07 0900 87 21 98 04/07 0801 78 14 133/66 94 98 04/07 0800 98.2 04/07 0700 79 14 117/59 83 98 04/07 0600 79 10 113/57 78 97 04/07 0507 82 15 112/56 76 97 04/07 0400 98.7 04/07 0400 84 12 137/63 90 97 04/07 0300 82 12 117/57 81 97 04/07 0200 84 12 110/57 78 97 04/07 0100 82 12 112/56 78 96 04/07 0000 98.6 04/07 0000 84 11 108/55 74 97 04/06 2300 86 12 104/56 74 96 04/06 2200 88 11 111/56 78 96 04/06 2130 87 14 111/56 78 96 04/06 2100 90 18 110/57 80 96 04/06 2030 91 14 115/57 81 97 04/06 1999 99.5 04/06 1999 90 10 98/54 73 96 04/06 1930 84 10 87/55 67 96 04/06 1830 86 103/55 69 95 PATIENT WEIGHT: Weight (lb): 154 Weight (oz): 1.65 Weight (kg): 69.900 Medications: Active Meds + DC'd Last 24 Hrs Insulin Human Lispro (HUMALOG) 5 UNIT AC SUBQ Lidocaine (LIDODERM) 1 PATCH DAILY TOPICAL Insulin Glargine (Lantus/Semglee) 20 UNIT BEDTIM E SUBQ Hydromorphone HCl (DILAUDID) 1 MG Q3H PRN PRN IV Hydromorphone HCl (DILAUDID) 0.5 MG Q3H PRN PRN IV Cefazolin Sodium (KEFZOL OR ANCEF) 1 GM Q8H IV Sodium Chloride (SODIUM CHLORIDE) 10 ML Meropenem (MEROPENEM) 500 MG Q6H IV Sterile Water (WATER FOR INJECTION) 10 ML Daptomycin (CUBICIN 500MG) 700 MG Q24H IV (CKD) Sodium Chloride (SODIUM CHLORIDE 0.9%) 50 ML Famotidine (PEPCID) 20 MG BID PO Lorazepam (ATIVAN) 1 MG ONCE PRN IV Sodium Chloride (SODIUM CHLORIDE) 0 ASDIR PRN IV Insulin Human Lispro (HUMALOG) 7 UNIT AC SUBQ (D C) Insulin Human Lispro (HUMALOG) 0 AC HS SUBQ Dextrose/Water (DEXTROSE 10% IN WATER) 125 ML DIR PRN IV (CKD) Dextrose/Water (DEXTROSE 10% IN WATER) 250 ML DIR PRN IV (CKD) Glucagon (GLUCAGON) 1 MG ASDIR PRN IM Dextrose/Water (Dextrose 10% 1,000 mL) 1,000 ML ASDIR IV Acetaminophen (TYLENOL) 650 MG Q6H PRN PRN PO Bisacodyl (DULCOLAX) 10 MG DAILY PRN PRN RECTAL Docusate Sodium (COLACE) 100 MG Q12H PRN PRN PO Ondansetron HCl (ZOFRAN) 4 MG Q6H PRN PRN IV Heparin Sodium (HEPARIN 5000 UNITS/ML) 5,000 UNI T Q8HR SUBQ Physical Exam General appearance: alert, awake, oriented Neck: no bruit/NL carotids, no JVD Cardiovascular: CV assessment: abnormal S1/S2, regular rate and rhythm, no ectopy Respiratory: clear to auscultation, no distress Lower extremity: LE assessment: edema 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 X 3 Considered stroke alert: no Wound/incision: Location: right foot Psychiatry: normal affect, normal judgment/insig ht, normal mood Results Findings/Data: Laboratory Tests 08/29 08/29 08/29 08/29 08/29 1655 1041 0912 0844 0513 Chemistry POC Glucose (70 - 110 MG/DL) 157 H 105 70 70 Prealbumin (16.0 - 40.0 mg/dL) < 5.0 L 08/29 Chemistry Sodium (134 - 147 mEq/L) 136 Potassium (3.4 - 5.0 mEq/L) 4.9 Chloride (100 - 108 mEq/L) 109 H Carbon Dioxide (21 - 33 mEq/l) 23 Anion Gap (0 - 20) 9 BUN (7 - 18 mg/dL) 31 H Creatinine (0.6 - 1.3 mg/dL) 1.5 H Glomerular Filtr Rate (90 - 95) 53.6 L Glucose (70 - 110 mg/dL) 90 POC Glucose (70 - 110 MG/DL) 145 H Calcium (8.0 - 10.5 mg/dL) 7.2 L Phosphorus (2.5 - 4.9 MG/DL) 5.2 H Magnesium (1.80 - 2.40 mg/dL) 1.91 Laboratory Tests 08/29 0513 Hematology WBC (4.5 - 11.0 x10 3/uL) 14.2 H RBC (4.00 - 5.60 x10 6/uL) 2.50 L Hgb (12.5 - 16.9 g/dL) 7.1 L Hct (37.5 - 50.7 %) 21.5 L MCV (81.0 - 99.0 fL) 86.0 MCH (27.0 - 33.0 pg) 28.4 MCHC (33.0 - 37.0 g/dL) 33.0 RDW (11.5 - 14.5 %) 14.6 H Plt Count (150 - 400 x10 3/uL) 212 MPV (7.0 - 9.0 fL) 9.2 H Neut % (Auto) (56.0 - 77.0 %) 83.2 H Lymph % (Auto) (14.0 - 32.0 %) 10.0 L Boundary % (Auto) (4.8 - 9.0 %) 5.6 Eos % (Auto) (0.3 - 3.7 %) 0.5 Baso % (Auto) (0.0 - 2.0 %) 0.1 Neut # (Auto) (2.0 - 7.6 x10 3/uL) 11.78 H Lymph # (Auto) (1.0 - 3.8 x10 3/uL) 1.42 Boundary # (Auto) (0.1 - 0.8 x10 3/uL) 0.79 Eos # (Auto) (0.0 - 0.2 x10 3/uL) 0.07 Baso # (Auto) (0.0 - 0.2 x10 3/uL) 0.02 Abs Immat Gran (auto) (0.00 - 0.03 x10 3/uL) 0. 08 H Add Manual Diff NO Immature Gran % (0.0 - 2.0 %) 0.6 Nucleated RBC % (0 - 0 %) 0.0 Nucleated RBCs # (Man) (0.0 - 0.1 x10 3/uL) 0.0 0 Laboratory Tests 08/29 0513 Chemistry Magnesium (1.80 - 2.40 mg/dL) 1.91 Diagnosis, Assessment Plan Free Text DxA P Notes Free Text DxA P Notes: Impression: 1. Preop eval/cardiac clearance 2. Infected right foot gas gangrene 3. DKA 4. Sepsis 5. Hypertension 6. Anemia Recommendation: Patient presented for evalua tion of altered mental status, weakness and elevated blood sugar. Diagnosed with DKA and seps is. 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 Known cardiac history of hypertensio n and hyperlipidemia. Denies prior history of CAD, CHF or arrhythmia. EKG abn ormal, NSR with anterior infarct. Vital signs stable. No prior cardiac wo rk-up. -Check echocardiogram -Monitor telemetry for arrhythmia -Monitor blood pressure trend -Wound care and IV antibiotic therapy -Supportive care 08/19: Patient doing better postop, blood pressur e control, currently in sinus rhythm, lower extremity artery Doppler negative for any significant PAD, continue current management from primary team an d podiatry service, continue monitor on telemetry for arrhythmia postop, supp ortive care, discussed with patient and family as well as RN, will follow. 08/21: Patient overall doing well, awake and irish rt today. Blood pressure well controlled. Currently in sinus rhythm to sinus t achycardia, will continue to monitor. Echocardiogram shows LVEF of 55 to 69%, no regional wall motion abnormalities, grade 1 diastolic dysfunction, an d mildly dilated LA. continue antibiotic therapy and wound care. Supportive ca re. Plan of care discussed with patient, RN and Dr. Parham. 08/22: No Significant changes from cardiac stand point. Vital signs stable. Telemetry monitoring reviewed, sinus rhythm to s inus tachycardia. We will continue monitor, sinus tachycardia likely relat ed to underlying infection. Continue wound care and antibiotic therapy. Supp ortive care. Plan of care discussed with patient, RN and Dr. Parham. 08/23: Stable cardiac status. Blood pressure and heart rate well controlled. Continue monitor telemetry. Continue wound care. Plan to transfer to floor. Supportive care. Plan of care discussed with olri hart RN and Dr. Parham. 08/24: Patient overall doing well, remains stabl e from cardiac standpoint. Blood pressure and heart rat e well controlled. No new events noted on telemetry monitoring. Remains in sinus rhythm by physical examination. Continue wound care. Supportive care. Plan of care discussed patient, RN and Dr. Parham. 08/25: Remain stable from cardiac standpoint. Bl ood pressure well controlled. Currently in sinus rhythm by physical examinatio n. Possible plan for another wound debridement today. Pain management and sup portive care. Plan of care discussed with patient, RN and Dr. Parham. 08/26: Patient remains in sinus rhythm. Blood pr essure well controlled. Plan for aspiration of prostatic cyst today. Plan for right BKA on . We will continue monitor patient postoperatively. C ontinue antibiotic therapy. Supportive care. Plan of care discussed with lori hart RN and Dr. Parham. 08/27: Patient doing well st atus post aspiration of prostatic abscess and TURP. Currently on continuous bladder irrigation. Hemo dynamically stable. Blood pressure and heart rate well controlled. Remains in normal sinus rhythm. Plan for right BKA tomorrow. Melia red from cardiac standpoint to proceed with planned surgery. Supportive care. Plan of care discussed with patient, RN and Dr. Parham. 08/28: Stable cardiac status. Plan for right BKA today. Continue antibiotic therapy and wound care. Will monitor patient pos toperatively for arrhythmia. Continue monitor telemetry. Pain management and supportive care. Plan of care discussed with RN and Dr. Parham. 08/29: Patient doing well, blood pressure controll ed, s/p right BKA, stable cardiac status, continue current management, nhan castro follow. at 1806 RPT #:[id number] END OF REPORT 2022-08-29 17:21:00-00:00 [facility] ([facility]) Endocrinology Progress Note REPORT#:[id number] REPORT STATUS: Signed DATE:08/29/22 TIME: 1721 PATIENT: KARMA ROWLAND UNIT #: [id number] ROOM/BED: [facility] : 61 AGE: 56 SEX: M ATTEND: Mikayla Ramires MD ADM AUTHOR: Braxton Chapin MD * ALL edits or amendments must be made on the [employer]/computer document * Subjective Patient reports: no complaints Objective General VS: Last Documented: Result Date Time Pulse Ox 98 08/29 1700 B/P 145/68 08/29 1700 B/P Mean 98 08/29 1700 Pulse 88 08/29 1700 Resp 12 08/29 1700 Temp 36.8 08/29 1600 O2 Delivery Room air 08/28 1235 O2 Flow Rate 7 08/28 1222 PATIENT WEIGHT: Weight (lb): 154 Weight (oz): 1.65 Weight (kg): 69.900 Medications: Active Meds + DC'd Last 24 Hrs Insulin Human Lispro (HUMALOG) 5 UNIT AC SUBQ (U NV) Lidocaine (LIDODERM) 1 PATCH DAILY TOPICAL Insulin Glargine (Lantus/Semglee) 20 UNIT BEDTIM E SUBQ Hydromorphone HCl (DILAUDID) 1 MG Q3H PRN PRN IV Hydromorphone HCl (DILAUDID) 0.5 MG Q3H PRN PRN IV Cefazolin Sodium (KEFZOL OR ANCEF) 1 GM Q8H IV Sodium Chloride (SODIUM CHLORIDE) 10 ML Insulin Glargine (Lantus/Semglee) 15 UNIT BEDTIM E SUBQ (DC) Meropenem (MEROPENEM) 500 MG Q6H IV Sterile Water (WATER FOR INJECTION) 10 ML Daptomycin (CUBICIN 500MG) 700 MG Q24H IV (CKD) Sodium Chloride (SODIUM CHLORIDE 0.9%) 50 ML Famotidine (PEPCID) 20 MG BID PO Lorazepam (ATIVAN) 1 MG ONCE PRN IV Sodium Chloride (SODIUM CHLORIDE) 0 ASDIR PRN IV Insulin Human Lispro (HUMALOG) 7 UNIT AC SUBQ (D Cr) Insulin Human Lispro (HUMALOG) 0 AC HS SUBQ Dextrose/Water (DEXTROSE 10% IN WATER) 125 ML DIR PRN IV (CKD) Dextrose/Water (DEXTROSE 10% IN WATER) 250 ML DIR PRN IV (CKD) Glucagon (GLUCAGON) 1 MG ASDIR PRN IM Dextrose/Water (Dextrose 10% 1,000 mL) 1,000 ML ASDIR IV Acetaminophen (TYLENOL) 650 MG Q6H PRN PRN PO Bisacodyl (DULCOLAX) 10 MG DAILY PRN PRN RECTAL Docusate Sodium (COLACE) 100 MG Q12H PRN PRN PO Ondansetron HCl (ZOFRAN) 4 MG Q6H PRN PRN IV Heparin Sodium (HEPARIN 5000 UNITS/ML) 5,000 UNI T Q8HR SUBQ Physical Exam General appearance: alert, awake Diagnosis, Assessment Plan Hospital course to date: Laboratory Tests: 08/29 08/29 08/29 08/29 08/29 1655 1041 0912 0844 0513 Chemistry POC Glucose (70 - 110 MG/DL) 157 H 105 70 70 Prealbumin (16.0 - 40.0 mg/dL) < 5.0 L 08/29 Chemistry Sodium (134 - 147 mEq/L) 136 Potassium (3.4 - 5.0 mEq/L) 4.9 Chloride (100 - 108 mEq/L) 109 H Carbon Dioxide (21 - 33 mEq/l) 23 Anion Gap (0 - 20) 9 BUN (7 - 18 mg/dL) 31 H Creatinine (0.6 - 1.3 mg/dL) 1.5 H Glomerular Filtr Rate (90 - 95) 53.6 L Glucose (70 - 110 mg/dL) 90 POC Glucose (70 - 110 MG/DL) 145 H Calcium (8.0 - 10.5 mg/dL) 7.2 L Phosphorus (2.5 - 4.9 MG/DL) 5.2 H Magnesium (1.80 - 2.40 mg/dL) 1.91 Hematology WBC (4.5 - 11.0 x10 3/uL) 14.2 H RBC (4.00 - 5.60 x10 6/uL) 2.50 L Hgb (12.5 - 16.9 g/dL) 7.1 L Hct (37.5 - 50.7 %) 21.5 L MCV (81.0 - 99.0 fL) 86.0 MCH (27.0 - 33.0 pg) 28.4 MCHC (33.0 - 37.0 g/dL) 33.0 RDW (11.5 - 14.5 %) 14.6 H Plt Count (150 - 400 x10 3/uL) 212 MPV (7.0 - 9.0 fL) 9.2 H Neut % (Auto) (56.0 - 77.0 %) 83.2 H Lymph % (Auto) (14.0 - 32.0 %) 10.0 L Boundary % (Auto) (4.8 - 9.0 %) 5.6 Eos % (Auto) (0.3 - 3.7 %) 0.5 Baso % (Auto) (0.0 - 2.0 %) 0.1 Neut # (Auto) (2.0 - 7.6 x10 3/uL) 11.78 H Lymph # (Auto) (1.0 - 3.8 x10 3/uL) 1.42 Boundary # (Auto) (0.1 - 0.8 x10 3/uL) 0.79 Eos # (Auto) (0.0 - 0.2 x10 3/uL) 0.07 Baso # (Auto) (0.0 - 0.2 x10 3/uL) 0.02 Abs Immat Gran (auto) (0.00 - 0.03 x10 3/uL) 0. 08 H Add Manual Diff NO Immature Gran % (0.0 - 2.0 %) 0.6 Nucleated RBC % (0 - 0 %) 0.0 Nucleated RBCs # (Man) (0.0 - 0.1 x10 3/uL) 0.0 0 Laboratory Tests: 08/28 08/28 08/28 08/28 1709 1302 1218 0624 Chemistry POC Glucose (70 - 110 MG/DL) 103 206 H 185 H 18 0 H 08/28 08/27 08/27 0420 2050 1825 Chemistry Sodium (134 - 147 mEq/L) 137 136 Potassium (3.4 - 5.0 mEq/L) 5.0 5.1 H Chloride (100 - 108 mEq/L) 109 H 109 H Carbon Dioxide (21 - 33 mEq/l) 21 20 L Anion Gap (0 - 20) 12 12 BUN (7 - 18 mg/dL) 30 H 30 H Creatinine (0.6 - 1.3 mg/dL) 1.4 H 1.2 Glomerular Filtr Rate (90 - 95) 58.3 L 70.1 L Glucose (70 - 110 mg/dL) 167 H 161 H POC Glucose (70 - 110 MG/DL) 87 Calcium (8.0 - 10.5 mg/dL) 7.7 L 7.5 L Ionized Calcium Mitzi (1.09 - 1.30 MMOL/L) 1.12 Phosphorus (2.5 - 4.9 MG/DL) 4.8 Magnesium (1.80 - 2.40 mg/dL) 1.89 Total Bilirubin (0.0 - 1.0 mg/dL) 0.40 AST (15 - 37 IUnit/L) 17 ALT (30 - 65 IUnit/L) 9 L Total Alk Phosphatase (20 - 125 IUnit/L) 111 Total Protein (6.4 - 8.2 g/dL) 5.8 L Albumin (3.4 - 5.0 g/dL) 1.30 L Hematology WBC (4.5 - 11.0 x10 3/uL) 13.8 H RBC (4.00 - 5.60 x10 6/uL) 2.83 L Hgb (12.5 - 16.9 g/dL) 8.0 L Hct (37.5 - 50.7 %) 24.0 L MCV (81.0 - 99.0 fL) 84.8 MCH (27.0 - 33.0 pg) 28.3 MCHC (33.0 - 37.0 g/dL) 33.3 RDW (11.5 - 14.5 %) 14.6 H Plt Count (150 - 400 x10 3/uL) 244 MPV (7.0 - 9.0 fL) 9.2 H Neut % (Auto) (56.0 - 77.0 %) 86.7 H Lymph % (Auto) (14.0 - 32.0 %) 8.2 L Boundary % (Auto) (4.8 - 9.0 %) 4.1 L Eos % (Auto) (0.3 - 3.7 %) 0.4 Baso % (Auto) (0.0 - 2.0 %) 0.1 Neut # (Auto) (2.0 - 7.6 x10 3/uL) 11.92 H Lymph # (Auto) (1.0 - 3.8 x10 3/uL) 1.13 Boundary # (Auto) (0.1 - 0.8 x10 3/uL) 0.57 Eos # (Auto) (0.0 - 0.2 x10 3/uL) 0.05 Baso # (Auto) (0.0 - 0.2 x10 3/uL) 0.01 Abs Immat Gran (auto) (0.00 - 0.03 x10 3/uL) 0. 07 H Add Manual Diff NO Immature Gran % (0.0 - 2.0 %) 0.5 Nucleated RBC % (0 - 0 %) 0.0 Nucleated RBCs # (Man) (0.0 - 0.1 x10 3/uL) 0.0 0 Microbiology: Date/Time Procedure - Status Source Growth 08/29 1347 Blood Culture - RECD BLOOD 08/29 1347 Blood Culture - RECD BLOOD Recent Impressions: ULTRASOUND - DUP VEIN UNI/LTD 08/28 0857 Report Impression - Status: SIGNED Entered: 08/28/2022 0927 IMPRESSION: 1. No evidence of venous thrombosis involving le ft lower extremity. 2. Approximately 8 x 2 x 1.3 cm complex fluid co llection along the left upper calf probably representing a smal l hematoma. Impression By: [email or web address] - Hakeem Soto RADIOLOGY - XR FLUOROSCOPY 0-60 MIN 08/28 1101 Report Impression - Status: SIGNED Entered: 08/28/2022 1120 IMPRESSION: Fluoroscopy dosage documentation. See also separ ate procedure notes. Impression By: [email or web address] - Bishop Atkins M.D. Laboratory Tests: 08/27 08/27 08/27 08/27 1728 1147 0824 0533 Chemistry Sodium (134 - 147 mEq/L) 137 Potassium (3.4 - 5.0 mEq/L) 5.3 H Chloride (100 - 108 mEq/L) 110 H Carbon Dioxide (21 - 33 mEq/l) 20 L Anion Gap (0 - 20) 12 BUN (7 - 18 mg/dL) 33 H Creatinine (0.6 - 1.3 mg/dL) 1.2 Glomerular Filtr Rate (90 - 95) 70.1 L Glucose (70 - 110 mg/dL) 285 H POC Glucose (70 - 110 MG/DL) 148 H 244 H 294 H Calcium (8.0 - 10.5 mg/dL) 7.2 L Phosphorus (2.5 - 4.9 MG/DL) 5.4 H Magnesium (1.80 - 2.40 mg/dL) 1.94 Total Bilirubin (0.0 - 1.0 mg/dL) 0.40 AST (15 - 37 IUnit/L) 12 L ALT (30 - 65 IUnit/L) 9 L Total Alk Phosphatase (20 - 125 IUnit/L) 111 Total Protein (6.4 - 8.2 g/dL) 5.7 L Albumin (3.4 - 5.0 g/dL) 1.30 L 08/278 1 Chemistry POC Glucose (70 - 110 MG/DL) 148 H Ionized Calcium Mitzi (1.09 - 1.30 MMOL/L) 1.08 L Hematology WBC (4.5 - 11.0 x10 3/uL) 15.9 H RBC (4.00 - 5.60 x10 6/uL) 3.07 L Hgb (12.5 - 16.9 g/dL) 8.6 L Hct (37.5 - 50.7 %) 25.9 L MCV (81.0 - 99.0 fL) 84.4 MCH (27.0 - 33.0 pg) 28.0 MCHC (33.0 - 37.0 g/dL) 33.2 RDW (11.5 - 14.5 %) 14.6 H Plt Count (150 - 400 x10 3/uL) 250 MPV (7.0 - 9.0 fL) 9.8 H Neut % (Auto) (56.0 - 77.0 %) 88.7 H Lymph % (Auto) (14.0 - 32.0 %) 7.0 L Boundary % (Auto) (4.8 - 9.0 %) 3.3 L Eos % (Auto) (0.3 - 3.7 %) 0.3 Baso % (Auto) (0.0 - 2.0 %) 0.1 Neut # (Auto) (2.0 - 7.6 x10 3/uL) 14.14 H Lymph # (Auto) (1.0 - 3.8 x10 3/uL) 1.11 Boundary # (Auto) (0.1 - 0.8 x10 3/uL) 0.52 Eos # (Auto) (0.0 - 0.2 x10 3/uL) 0.04 Baso # (Auto) (0.0 - 0.2 x10 3/uL) 0.02 Abs Immat Gran (auto) (0.00 - 0.03 x10 3/uL) 0. 10 H Add Manual Diff NO Immature Gran % (0.0 - 2.0 %) 0.6 Nucleated RBC % (0 - 0 %) 0.0 Nucleated RBCs # (Man) (0.0 - 0.1 x10 3/uL) 0.0 0 Microbiology: Date/Time Procedure - Status Source Growth 08/26 2216 Wound Culture - RES ABSCESS GRAM NEGATIVE JAKOB 08/26 2216 Anaerobic Culture - RES ABSCESS 08/26 2216 Gram Stain - RES ABSCESS Laboratory Tests: 08/26 08/26 08/25 0906 0430 2007 Chemistry Sodium (134 - 147 mEq/L) 136 Potassium (3.4 - 5.0 mEq/L) 4.8 Chloride (100 - 108 mEq/L) 109 H Carbon Dioxide (21 - 33 mEq/l) 21 Anion Gap (0 - 20) 11 BUN (7 - 18 mg/dL) 32 H Creatinine (0.6 - 1.3 mg/dL) 1.1 Glomerular Filtr Rate (90 - 95) 77.8 L Glucose (70 - 110 mg/dL) 151 H POC Glucose (70 - 110 MG/DL) 163 H 113 H Calcium (8.0 - 10.5 mg/dL) 7.7 L Ionized Calcium Mitzi (1.09 - 1.30 MMOL/L) 1.11 Phosphorus (2.5 - 4.9 MG/DL) 4.6 Magnesium (1.80 - 2.40 mg/dL) 1.89 Total Bilirubin (0.0 - 1.0 mg/dL) 0.50 AST (15 - 37 IUnit/L) 19 ALT (30 - 65 IUnit/L) 11 L Total Alk Phosphatase (20 - 125 IUnit/L) 149 H Total Protein (6.4 - 8.2 g/dL) 5.5 L Albumin (3.4 - 5.0 g/dL) 1.30 L Hematology WBC (4.5 - 11.0 x10 3/uL) 17.7 H RBC (4.00 - 5.60 x10 6/uL) 2.44 L Hgb (12.5 - 16.9 g/dL) 6.7 L Hct (37.5 - 50.7 %) 20.4 L MCV (81.0 - 99.0 fL) 83.6 MCH (27.0 - 33.0 pg) 27.5 MCHC (33.0 - 37.0 g/dL) 32.8 L RDW (11.5 - 14.5 %) 14.7 H Plt Count (150 - 400 x10 3/uL) 253 MPV (7.0 - 9.0 fL) 9.9 H Neut % (Auto) (56.0 - 77.0 %) 87.5 H Lymph % (Auto) (14.0 - 32.0 %) 7.4 L Boundary % (Auto) (4.8 - 9.0 %) 3.9 L Eos % (Auto) (0.3 - 3.7 %) 0.5 Baso % (Auto) (0.0 - 2.0 %) 0.1 Neut # (Auto) (2.0 - 7.6 x10 3/uL) 15.49 H Lymph # (Auto) (1.0 - 3.8 x10 3/uL) 1.31 Boundary # (Auto) (0.1 - 0.8 x10 3/uL) 0.69 Eos # (Auto) (0.0 - 0.2 x10 3/uL) 0.08 Baso # (Auto) (0.0 - 0.2 x10 3/uL) 0.01 Abs Immat Gran (auto) (0.00 - 0.03 x10 3/uL) 0. 11 H Add Manual Diff NO Immature Gran % (0.0 - 2.0 %) 0.6 Nucleated RBC % (0 - 0 %) 0.0 Nucleated RBCs # (Man) (0.0 - 0.1 x10 3/uL) 0.0 0 Laboratory Tests: 08/25 08/25 08/25 08/25 1723 1111 1044 1044 Chemistry Potassium (3.4 - 5.0 mEq/L) 4.5 POC Glucose (70 - 110 MG/DL) 132 H 143 H Total Creatine Kinase (46 - 171 Units/L) 17 L Urines Urine Color (YEL/STRAW) YELLOW Urine Appearance (CLEAR) TURBID H Urine pH (5.0 - 7.0) 5.0 Ur Specific [place] (1.005 - 1.030) 1.012 Urine Protein (NEGATIVE) 2+ H Urine Glucose (UA) (NEGATIVE) NEGATIVE Urine Ketones (NEGATIVE) NEGATIVE Urine Blood (NEGATIVE) 2+ H Urine Nitrite (NEGATIVE) NEGATIVE Urine Bilirubin (NEGATIVE) NEGATIVE Urine Urobilinogen (0.2 - 1.0 mg/dL) 0.2 Ur Leukocyte Esterase (NEGATIVE) 3+ H Urine RBC (0 - 3 RBC/HPF) 21-50 Urine WBC (0 - 3 WBC/HPF) >50 H Ur Squamous Epith Cells (NONE SEEN /HPF) NONE S EEN Ur Transition Epith Cell (NONE SEEN /HPF) 3+ H Urine Bacteria (NONE SEEN /HPF) TRACE Urine Mucus (NONE SEEN /LPF) TRACE 08/25 08/25 08/24 0750 0744 2130 Chemistry Sodium (134 - 147 mEq/L) 135 Potassium (3.4 - 5.0 mEq/L) 5.4 H Chloride (100 - 108 mEq/L) 110 H Carbon Dioxide (21 - 33 mEq/l) 19 L Anion Gap (0 - 20) 11 BUN (7 - 18 mg/dL) 25 H Creatinine (0.6 - 1.3 mg/dL) 1.1 Glomerular Filtr Rate (90 - 95) 77.8 L Glucose (70 - 110 mg/dL) 162 H POC Glucose (70 - 110 MG/DL) 166 H 140 H Calcium (8.0 - 10.5 mg/dL) 7.3 L Ionized Calcium Mitzi (1.09 - 1.30 MMOL/L) 0.96 L Phosphorus (2.5 - 4.9 MG/DL) 4.5 Magnesium (1.80 - 2.40 mg/dL) 1.88 Total Bilirubin (0.0 - 1.0 mg/dL) 0.50 AST (15 - 37 IUnit/L) 40 H ALT (30 - 65 IUnit/L) 21 L Total Alk Phosphatase (20 - 125 IUnit/L) 159 H Total Protein (6.4 - 8.2 g/dL) 5.6 L Albumin (3.4 - 5.0 g/dL) 1.30 L Hematology WBC (4.5 - 11.0 x10 3/uL) 17.9 H RBC (4.00 - 5.60 x10 6/uL) 2.64 L Hgb (12.5 - 16.9 g/dL) 7.3 L Hct (37.5 - 50.7 %) 22.6 L MCV (81.0 - 99.0 fL) 85.6 MCH (27.0 - 33.0 pg) 27.7 MCHC (33.0 - 37.0 g/dL) 32.3 L RDW (11.5 - 14.5 %) 15.1 H Plt Count (150 - 400 x10 3/uL) 226 MPV (7.0 - 9.0 fL) 10.7 H Neut % (Auto) (56.0 - 77.0 %) 86.3 H Lymph % (Auto) (14.0 - 32.0 %) 8.1 L Boundary % (Auto) (4.8 - 9.0 %) 4.3 L Eos % (Auto) (0.3 - 3.7 %) 0.5 Baso % (Auto) (0.0 - 2.0 %) 0.1 Neut # (Auto) (2.0 - 7.6 x10 3/uL) 15.44 H Lymph # (Auto) (1.0 - 3.8 x10 3/uL) 1.45 Boundary # (Auto) (0.1 - 0.8 x10 3/uL) 0.77 Eos # (Auto) (0.0 - 0.2 x10 3/uL) 0.09 Baso # (Auto) (0.0 - 0.2 x10 3/uL) 0.02 Abs Immat Gran (auto) (0.00 - 0.03 x10 3/uL) 0. 13 H Add Manual Diff NO Immature Gran % (0.0 - 2.0 %) 0.7 Nucleated RBC % (0 - 0 %) 0.0 Nucleated RBCs # (Man) (0.0 - 0.1 x10 3/uL) 0.0 0 Microbiology: Date/Time Procedure - Status Source Growth 08/25 104 Urine Culture - WKST URINE 08/26 1043 Blood Culture - RECD BLOOD 08/26 1043 Blood Culture - RECD BLOOD Laboratory Tests: 08/20 08/20 08/20 08/20 08/20 1107 0756 0647 0554 0454 Chemistry Sodium (134 - 147 mEq/L) 137 Potassium (3.4 - 5.0 mEq/L) 3.7 Chloride (100 - 108 mEq/L) 107 Carbon Dioxide (21 - 33 mEq/l) 20 L Anion Gap (0 - 20) 14 BUN (7 - 18 mg/dL) 44 H Creatinine (0.6 - 1.3 mg/dL) 1.2 Glomerular Filtr Rate (90 - 95) 70.1 L Glucose (70 - 110 mg/dL) 212 H POC Glucose (70 - 110 MG/DL) 173 H 192 H 206 H 198 H Calcium (8.0 - 10.5 mg/dL) 7.3 L Ionized Calcium Mitzi (1.09 - 1.30 MMOL/L) 1.04 L Phosphorus (2.5 - 4.9 MG/DL) 3.4 Magnesium (1.80 - 2.40 mg/dL) 2.05 Total Bilirubin (0.0 - 1.0 mg/dL) 0.60 AST (15 - 37 IUnit/L) 51 H ALT (30 - 65 IUnit/L) 22 L Total Alk Phosphatase (20 - 125 IUnit/L) 178 H Total Protein (6.4 - 8.2 g/dL) 5.7 L Albumin (3.4 - 5.0 g/dL) 2.00 L Hematology WBC (4.5 - 11.0 x10 3/uL) 22.8 H RBC (4.00 - 5.60 x10 6/uL) 2.63 L Hgb (12.5 - 16.9 g/dL) 7.1 L Hct (37.5 - 50.7 %) 21.3 L MCV (81.0 - 99.0 fL) 81.0 MCH (27.0 - 33.0 pg) 27.0 MCHC (33.0 - 37.0 g/dL) 33.3 RDW (11.5 - 14.5 %) 14.7 H Plt Count (150 - 400 x10 3/uL) 190 MPV (7.0 - 9.0 fL) 10.0 H Neut % (Auto) (56.0 - 77.0 %) 87.2 H Lymph % (Auto) (14.0 - 32.0 %) 4.8 L Boundary % (Auto) (4.8 - 9.0 %) 2.9 L Eos % (Auto) (0.3 - 3.7 %) 0.0 L Baso % (Auto) (0.0 - 2.0 %) 0.2 Neut # (Auto) (2.0 - 7.6 x10 3/uL) 19.90 H Lymph # (Auto) (1.0 - 3.8 x10 3/uL) 1.10 Boundary # (Auto) (0.1 - 0.8 x10 3/uL) 0.66 Eos # (Auto) (0.0 - 0.2 x10 3/uL) 0.00 Baso # (Auto) (0.0 - 0.2 x10 3/uL) 0.04 Abs Immat Gran (auto) (0.00 - 0.03 1.12 H x10 3/uL) Add Manual Diff NO Immature Gran % (0.0 - 2.0 %) 4.9 H Nucleated RBC % (0 - 0 %) 0.0 Nucleated RBCs # (Man) (0.0 - 0.1 0.00 x10 3/uL) 08/20 08/20 08/19 08/19 08/19 0259 0101 2352 2322 2310 Chemistry Sodium (134 - 147 mEq/L) 132 L Potassium (3.4 - 5.0 mEq/L) 3.7 Chloride (100 - 108 mEq/L) 107 Carbon Dioxide (21 - 33 mEq/l) 21 Anion Gap (0 - 20) 8 BUN (7 - 18 mg/dL) 41 H Creatinine (0.6 - 1.3 mg/dL) 1.2 Glomerular Filtr Rate (90 - 95) 70.1 L Glucose (70 - 110 mg/dL) 184 H POC Glucose (70 - 110 MG/DL) 195 H 181 H 182 H 191 H Calcium (8.0 - 10.5 mg/dL) 7.1 L Phosphorus (2.5 - 4.9 MG/DL) 3.3 Magnesium (1.80 - 2.40 mg/dL) 2.09 Albumin (3.4 - 5.0 g/dL) 1.70 L Hematology Hgb (12.5 - 16.9 g/dL) 7.0 L Hct (37.5 - 50.7 %) 21.8 L 08/19 172 1652 Chemistry Sodium (134 - 147 mEq/L) 133 L Potassium (3.4 - 5.0 mEq/L) 3.6 Chloride (100 - 108 mEq/L) 105 Carbon Dioxide (21 - 33 mEq/l) 21 Anion Gap (0 - 20) 10 BUN (7 - 18 mg/dL) 45 H Creatinine (0.6 - 1.3 mg/dL) 1.2 Glomerular Filtr Rate (90 - 95) 70.1 L Glucose (70 - 110 mg/dL) 247 H POC Glucose (70 - 110 MG/DL) 165 H 209 H 218 H 219 H Calcium (8.0 - 10.5 mg/dL) 7.6 L Phosphorus (2.5 - 4.9 MG/DL) 3.0 Magnesium (1.80 - 2.40 mg/dL) 2.03 Albumin (3.4 - 5.0 g/dL) 1.40 L Hematology WBC (4.5 - 11.0 x10 3/uL) 20.3 H RBC (4.00 - 5.60 x10 6/uL) 2.57 L Hgb (12.5 - 16.9 g/dL) 7.1 L Hct (37.5 - 50.7 %) 20.9 L MCV (81.0 - 99.0 fL) 81.3 MCH (27.0 - 33.0 pg) 27.6 MCHC (33.0 - 37.0 g/dL) 34.0 RDW (11.5 - 14.5 %) 14.3 Plt Count (150 - 400 x10 3/uL) 197 MPV (7.0 - 9.0 fL) 10.2 H Neut % (Auto) (56.0 - 77.0 %) 88.7 H Lymph % (Auto) (14.0 - 32.0 %) 3.8 L Boundary % (Auto) (4.8 - 9.0 %) 3.7 L Eos % (Auto) (0.3 - 3.7 %) 0.0 L Baso % (Auto) (0.0 - 2.0 %) 0.3 Neut # (Auto) (2.0 - 7.6 x10 3/uL) 17.97 H Lymph # (Auto) (1.0 - 3.8 x10 3/uL) 0.76 L Boundary # (Auto) (0.1 - 0.8 x10 3/uL) 0.74 Eos # (Auto) (0.0 - 0.2 x10 3/uL) 0.00 Baso # (Auto) (0.0 - 0.2 x10 3/uL) 0.07 Abs Immat Gran (auto) (0.00 - 0.03 0.71 H x10 3/uL) Add Manual Diff NO Immature Gran % (0.0 - 2.0 %) 3.5 H Nucleated RBC % (0 - 0 %) 0.0 Nucleated RBCs # (Man) (0.0 - 0.1 0.00 x10 3/uL) 08/19 08/19 1622 1601 Chemistry POC Glucose (70 - 110 MG/DL) 232 H Urines Urine Color (YEL/STRAW) YELLOW Urine Appearance (CLEAR) SL CLOUDY Urine pH (5.0 - 7.0) 5.0 Ur Specific [place] (1.005 - 1.030) 1.013 Urine Protein (NEGATIVE) 1+ H Urine Glucose (UA) (NEGATIVE) 3+ H Urine Ketones (NEGATIVE) NEGATIVE Urine Blood (NEGATIVE) 2+ H Urine Nitrite (NEGATIVE) NEGATIVE Urine Bilirubin (NEGATIVE) NEGATIVE Urine Urobilinogen (0.2 - 1.0 mg/dL) 0.2 Ur Leukocyte Esterase (NEGATIVE) 3+ H Urine RBC (0 - 3 RBC/HPF) 4-10 Urine WBC (0 - 3 WBC/HPF) 21-50 H Ur Squamous Epith Cells (NONE SEEN /HPF) 0-5 Urine Bacteria (NONE SEEN /HPF) TRACE Urine Mucus (NONE SEEN /LPF) TRACE Microbiology: Date/Time Procedure - Status Source Growth 08/20 145 Blood Culture - ORD BLOOD 08/20 145 Blood Culture - ORD BLOOD 08/19 1709 Blood Culture - ORD BLOOD 08/19 1709 Blood Culture - ORD BLOOD 08/19 162 Urine Culture - RES URINE Laboratory Tests: 08/19 08/19 08/19 08/19 08/19 1338 1335 1233 1115 1115 Chemistry Sodium (134 - 147 mEq/L) 130 L Potassium (3.4 - 5.0 mEq/L) 3.6 Chloride (100 - 108 mEq/L) 107 Carbon Dioxide (21 - 33 mEq/l) 22 Anion Gap (0 - 20) 5 BUN (7 - 18 mg/dL) 39 H Creatinine (0.6 - 1.3 mg/dL) 1.1 Glomerular Filtr Rate (90 - 95) 77.8 L Glucose (70 - 110 mg/dL) 315 H POC Glucose (70 - 110 MG/DL) 340 H 363 H 326 H Calcium (8.0 - 10.5 mg/dL) 7.6 L Phosphorus (2.5 - 4.9 MG/DL) 2.2 L Magnesium (1.80 - 2.40 mg/dL) 2.06 B-Natriuretic Peptide (0 - 100 PG/ML) 96.0 Albumin (3.4 - 5.0 g/dL) 1.50 L 08/19 08/19 08/19 08/19 0805 0737 0737 0445 Chemistry Sodium (134 - 147 mEq/L) 130 L 130 L Potassium (3.4 - 5.0 mEq/L) 3.3 L 3.0 L Chloride (100 - 108 mEq/L) 103 102 Carbon Dioxide (21 - 33 mEq/l) 20 L 22 Anion Gap (0 - 20) 10 10 BUN (7 - 18 mg/dL) 42 H 43 H Creatinine (0.6 - 1.3 mg/dL) 1.2 1.3 Glomerular Filtr Rate (90 - 95) 70.1 L 63.7 L Glucose (70 - 110 mg/dL) 322 H 359 H POC Glucose (70 - 110 MG/DL) 292 H Calcium (8.0 - 10.5 mg/dL) 8.2 7.7 L Phosphorus (2.5 - 4.9 MG/DL) 2.6 2.9 Magnesium (1.80 - 2.40 mg/dL) 2.13 2.13 Iron (35 - 150 mcg/dL) 8 L TIBC (260 - 445 mcg/dL) 148 L % Saturation (14 - 34 %) 5.4 L Unsat Iron Binding (mcg/dL) 140 Ferritin (23.9 - 336.2 ng/mL) 2429.2 H Total Bilirubin (0.0 - 1.0 mg/dL) 0.60 AST (15 - 37 IUnit/L) 27 ALT (30 - 65 IUnit/L) 13 L Total Alk Phosphatase (20 - 125 IUnit/L) 150 H Total Protein (6.4 - 8.2 g/dL) 5.6 L Albumin (3.4 - 5.0 g/dL) 1.60 L 1.50 L Vitamin B12 (193 - 986 pg/mL) 5883 H Folate (3.1 - 17.5 ng/mL) 9.5 08/19 08/19 08/19 08/19 0340 0332 0330 0101 Chemistry POC Glucose (70 - 110 MG/DL) 332 H 296 H Hemoglobin A1c (4.8 - 6.0 %A1C) > 14.0 H Ionized Calcium Mitz[place] (1.09 - 1.30 MMOL/L) 1.07 L Hematology WBC (4.5 - 11.0 x10 3/uL) 21.3 H RBC (4.00 - 5.60 x10 6/uL) 2.80 L Hgb (12.5 - 16.9 g/dL) 7.6 L Hct (37.5 - 50.7 %) 22.3 L MCV (81.0 - 99.0 fL) 79.6 L MCH (27.0 - 33.0 pg) 27.1 MCHC (33.0 - 37.0 g/dL) 34.1 RDW (11.5 - 14.5 %) 14.0 Plt Count (150 - 400 x10 3/uL) 227 MPV (7.0 - 9.0 fL) 9.9 H Neut % (Auto) (56.0 - 77.0 %) 89.9 H Lymph % (Auto) (14.0 - 32.0 %) 4.3 L Boundary % (Auto) (4.8 - 9.0 %) 3.1 L Eos % (Auto) (0.3 - 3.7 %) 0.0 L Baso % (Auto) (0.0 - 2.0 %) 0.3 Neut # (Auto) (2.0 - 7.6 x10 3/uL) 19.17 H Lymph # (Auto) (1.0 - 3.8 x10 3/uL) 0.91 L Boundary # (Auto) (0.1 - 0.8 x10 3/uL) 0.67 Eos # (Auto) (0.0 - 0.2 x10 3/uL) 0.01 Baso # (Auto) (0.0 - 0.2 x10 3/uL) 0.07 Abs Immat Gran (auto) (0.00 - 0.03 x10 3/uL) 0. 51 H Add Manual Diff NO Immature Gran % (0.0 - 2.0 %) 2.4 H Nucleated RBC % (0 - 0 %) 0.0 Nucleated RBCs # (Man) (0.0 - 0.1 x10 3/uL) 0.0 0 08/18 08/18 08/18 08/18 2246 2157 1854 1653 Chemistry Sodium (134 - 147 mEq/L) 129 L Potassium (3.4 - 5.0 mEq/L) 3.3 L Chloride (100 - 108 mEq/L) 102 Carbon Dioxide (21 - 33 mEq/l) 20 L Anion Gap (0 - 20) 10 BUN (7 - 18 mg/dL) 44 H Creatinine (0.6 - 1.3 mg/dL) 1.3 Glomerular Filtr Rate (90 - 95) 63.7 L Glucose (70 - 110 mg/dL) 296 H POC Glucose (70 - 110 MG/DL) 265 H 226 H 223 H Calcium (8.0 - 10.5 mg/dL) 7.7 L Phosphorus (2.5 - 4.9 MG/DL) 2.8 Magnesium (1.80 - 2.40 mg/dL) 2.13 Albumin (3.4 - 5.0 g/dL) 1.70 L Microbiology: Date/Time Procedure - Status Source Growth 08/19 1210 Wound Culture - RES ABSCESS 08/19 1210 Anaerobic Culture - RES ABSCESS 08/19 1210 Gram Stain - RES ABSCESS Recent Impressions: ULTRASOUND - DUP LE ART UNI/LTD 08/19 0950 Report Impression - Status: SIGNED Entered: 08/19/2022 1056 IMPRESSION: No sonographic evidence for flow-limiting stenos is in the right lower extremity arterial system. Impression By: [email or web address] - Abraham Ross M.D. Laboratory Tests: 08/18 08/18 08/18 08/18 08/18 1430 1430 1404 1309 1203 Chemistry Sodium (134 - 147 mEq/L) 131 L Potassium (3.4 - 5.0 mEq/L) 3.4 Chloride (100 - 108 mEq/L) 101 Carbon Dioxide (21 - 33 mEq/l) 24 Anion Gap (0 - 20) 9 BUN (7 - 18 mg/dL) 58 H Creatinine (0.6 - 1.3 mg/dL) 1.4 H Glomerular Filtr Rate (90 - 95) 58.3 L Glucose (70 - 110 mg/dL) 207 H POC Glucose (70 - 110 MG/DL) 195 H 213 H 201 H Calcium (8.0 - 10.5 mg/dL) 7.8 L Phosphorus (2.5 - 4.9 MG/DL) 2.2 L Magnesium (1.80 - 2.40 mg/dL) 2.09 Albumin (3.4 - 5.0 g/dL) 1.60 L Triglycerides (40 - 150 mg/dL) 161 H Cholesterol (<200 mg/dL) 90 LDL Cholesterol [place] (0 - 100 mg/dL) 33.0 HDL Cholesterol (32 - 72 mg/dL) < 20.0 L Cholesterol/HDL Ratio (3.43 - 4.97 4.00 RATIO) TSH (0.42 - 5.47) 0.96 Free T4 (0.77 - 1.61 ng/dL) 0.7 L 08/18 08/18 08/18 08/18 08/18 1107 1004 0900 0823 0549 Chemistry POC Glucose (70 - 110 MG/DL) 223 H 304 H 405 H 449 H Hemoglobin A1c (4.8 - 6.0 %A1C) 13.4 H 08/18 08/18 08/18 0549 0305 0207 Blood Gas Puncture Site R Radial O2 Saturation (90 - 100 %) 97.9 ABG pH (7.35 - 7.45) 7.309 L ABG pCO2 (35.0 - 45 mmHg) 22.3 *L ABG pO2 (80 - 100.0 mmHg) 108.0 H ABG PO2/FiO2 Ratio (mm/Hg) 514.28 ABG HCO3 (22.0 - 26.0 MMOL/L) 11.2 *L ABG Total CO2 11.9 ABG Base Excess (-4.0 - 4.0 MMOL/L) -15.1 L Neto Test Positive O2 Delivery Device Room Air FiO2 (%) 21 Chemistry Sodium (134 - 147 mEq/L) 121 *L Potassium (3.4 - 5.0 mEq/L) 4.1 Chloride (100 - 108 mEq/L) 90 L Carbon Dioxide (21 - 33 mEq/l) 15 L Anion Gap (0 - 20) 20 BUN (7 - 18 mg/dL) 62 H Creatinine (0.6 - 1.3 mg/dL) 1.7 H Glomerular Filtr Rate (90 - 95) 46.2 L Glucose (70 - 110 mg/dL) 692 *H Calcium (8.0 - 10.5 mg/dL) 7.5 L Phosphorus (2.5 - 4.9 MG/DL) 4.8 Magnesium (1.80 - 2.40 mg/dL) 2.34 Albumin (3.4 - 5.0 g/dL) 1.60 L Serology Influenza Type A (PCR) (Negative) Negative Influenza Type B (PCR) (Negative) Negative Toxicology Acetone, Quant (Neg - <20 mg/dL) Large - 80-100 mg/dL 08/18 08/18 08/18 0205 0203 0203 Chemistry Sodium (134 - 147 mEq/L) 115 *L Potassium (3.4 - 5.0 mEq/L) 4.4 Chloride (100 - 108 mEq/L) 84 L Carbon Dioxide (21 - 33 mEq/l) 14 L Anion Gap (0 - 20) 21 H BUN (7 - 18 mg/dL) 60 H Creatinine (0.6 - 1.3 mg/dL) 1.9 H Glomerular Filtr Rate (90 - 95) 40.4 L Glucose (70 - 110 mg/dL) 709 *H Lactic Acid (0.4 - 1.9 mmol/L) 1.2 Calcium (8.0 - 10.5 mg/dL) 8.5 Total Bilirubin (0.0 - 1.0 mg/dL) 0.40 Direct Bilirubin (0.0 - 0.30 MG/DL) 0.20 Indirect Bilirubin (MG/DL) 0.20 AST (15 - 37 IUnit/L) 14 L ALT (30 - 65 IUnit/L) 10 L Total Alk Phosphatase (20 - 125 IUnit/L) 157 H Troponin I High Sens (0 - 54 ng/L) 4 Total Protein (6.4 - 8.2 g/dL) 6.4 Albumin (3.4 - 5.0 g/dL) 1.80 L Lipase (13 - 57 U/L) 24 Hematology WBC (4.5 - 11.0 x10 3/uL) 26.5 H RBC (4.00 - 5.60 x10 6/uL) 3.36 L Hgb (12.5 - 16.9 g/dL) 9.0 L Hct (37.5 - 50.7 %) 28.3 L MCV (81.0 - 99.0 fL) 84.2 MCH (27.0 - 33.0 pg) 26.8 L MCHC (33.0 - 37.0 g/dL) 31.8 L RDW (11.5 - 14.5 %) 14.5 Plt Count (150 - 400 x10 3/uL) 355 MPV (7.0 - 9.0 fL) 9.9 H Add Manual Diff YES Seg Neutrophils % (37 - 69 %) 70.0 H Band Neutrophils % (0.0 - 10.0 %) 12.7 H Lymphocytes % (Manual) (23 - 55 %) 3.7 L Monocytes % (Manual) (0 - 10 %) 9.1 Metamyelocytes (0.0 - 0.0 %) 2.7 H Myelocytes (0.0 - 0.0 %) 0.9 H Promyelocytes (0 - 0 %) 0.9 H Platelet Estimate (ADEQUATE THOUSAND) Adequate Plt Morphology Comment NORMAL Polychromasia 3+ Poikilocytosis 3+ Anisocytosis 1+ Macrocytosis 1+ Serology SARS-CoV-2 Ag (Rapid) (Negative) Negative Toxicology Salicylates (0.0 - 20.0 mg/dL) 5.6 Microbiology: Date/Time Procedure - Status Source Growth 08/18 914 Wound Culture - ORD FOOT 08/18 206 Wound Culture - RECD FOOT 08/18 206 Group A Streptococcus Screen (VERONICA) - COMP THROAT 08/18 206 Streptococcus Culture - COMP THROAT 08/18 202 Blood Culture - RES BLOOD 08/18 202 Blood Culture Gram Stain - RES BLOOD 08/18 202 Blood Culture - RES BLOOD 08/18 202 Blood Culture Gram Stain - RES BLOOD Recent Impressions: RADIOLOGY - XR CHEST 2 V 08/18 200 Report Impression - Status: SIGNED Entered: 08/18/2022316 IMPRESSION: Ill-defined somewhat nodular opacity measuring 3 .2 cm laterally in the right mid lung suspicious for rounded pneumo ro given provided history, but underlying neoplasm can not be excl uded. Followup radiographs are recommended after appropriate tr eatment in order to document complete resolution and exclude an unde rlying process or neoplasm. Impression By: TipTPPaola Adams M.D. RADIOLOGY - XR FOOT 3 + V RT 08/18 0238 Report Impression - Status: SIGNED Entered: 08/18/2022 0358 IMPRESSION: No acute osseous findings. No convincing evidenc e for osteomyelitis. MRI is more sensitive for detecti ng osteomyelitis. Impression By: Ankur Ladd M.D. CAT SCAN - CT ABD PELVIS W/CONT 08/18 0339 Report Impression - Status: SIGNED Entered: 08/18/2022 0546 IMPRESSION: 3.3 cm hypodensity in the left posterior prostat e or seminal vesicle. This could represent an abscess. Contra st-enhanced MRI of the pelvis would be helpful for further evaluati on. No acute intra-abdominal findings otherwise. Impression By: Ankur Ladd M.D. CAT SCAN - CT LOWER EXTRM W/O C RT 08/18 0645 Report Impression - Status: SIGNED Entered: 08/18/2022 0827 IMPRESSION: Extensive soft tissue edema with mottled gas in the subcutaneous and intramuscular compartments of the foot abhishek tible with gas-forming infection. Disease extends into the visualized distal leg. Impression By: Jamel Dorantes M.D. 1. Diabetes mellitus type 2 uncontrolled with co mplications. 2. DKA 3. Cellulitis and gangrene of the right foot. 4. Sepsis 5. Altered mental status 6. High LFTs Blood sugar 90-105 mg/dL. HbA1c 13.4% White count 17.9 Sodium 121. Adjust insulin dose. Wound care and IV antibiotics. For wound debridement. Electronically Signed by Braxton Chapin MD on 12/14 at 1722 RPT #:[id number] END OF REPORT 2022-08-29 14:11:00-00:00 [facility] ([facility]) Infectious Dis. Progress Note REPORT#:[id number] REPORT STATUS: Signed DATE:08/29/22 TIME: 141 PATIENT: KARMA ROWLAND UNIT #: [id number] ROOM/BED: [place] [id number] : 63 AGE: 56 SEX: M ATTEND: Mikayla Ramires MD ADM AUTHOR: Merry Wolff MD * ALL edits or amendments must be made on the el [employer]/computer document * Subjective Chief complaint: Follow-up on MRSA bacteremia, right lower extrem ity necrotizing soft tissue infection. HPI: PT is a 56yr old male with h istory of diabetes mellitus type 2, hypertension who was admitted with altered mental status and righ t-sided foot infection. According to him, he noticed a blister on his right foot around 3 days prior to presentation. His foot got progressively more sw ollen and erythema extended proximally to his lateral foot and ankle. CT abd omen and pelvis with contrast is concerning for possible prostate abscess. CT of lower extremity without contrast shows extensive sof t tissue edema with mottled gas in the subcutaneous and intramuscular compartments of the foot, comp atible with gas-forming infection. Patient's blood cultures have come ba ck positive for MRSA in 2 out of 2 sets. PT has had persistent (+)Ve cx for MR 08/18- 08/22. He underwent a debridement of his foot on 08/19 and cx g rew MRSA. PT was started on Vancomycin and clindamycin on 08/18. His MRI showed a prosta te abscess. 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 08/25 PT is afebrile, his WBX is 17.9, he is awake and alert. at the bedside 08/26 plan for transrectal asp iration today and BKA on 08/28, pt is afebrile, WBC is 17.7, blood cx sent on 08/25 still positive, urine cx sent on 08/25 contaminated 08/27 s/p transrectal aspirati on and unroofing of prostate abscess 08/26, aspiration cx growing GNR, pt is afebrile, WBC down to 15.9 from 17.7, 08/28 Pt had right BKA today, afebrile, WBC 13.8 f rom 15.9 4/7 pt doing well, awake, al ert, afebrile, family at bedside, states he only has a little bit of pain Patient reports: Yes: pain controlled. No: cough, diarrhea, fever , headache, nausea, shortness of breath. Portions of this section wer e scribed by Jill Quintero on 08/29/22 at 1414 Objective General VS/I O: Vital Signs Date Temp Pulse Resp B/P B/P Mean Pulse Ox FiO2 04/06-08/29 98.2-99.5 78-95 10-23 87-166/54-81 67-115 95-100 Last Documented: Result Date Time Pulse Ox 97 04/ 1401 B/P 121/57 04/ 1401 B/P Mean 82 04/ 1401 Pulse 88 04/ 1401 Resp 15 / 1401 Temp 98.2 04/ 1200 O2 Delivery Room air / 1235 O2 Flow Rate 7 / 1222 Vital Signs: Date Time Temp Pulse Resp B/P B/P Pulse O2 O2 F low FiO2 Mean Ox Delivery Rate / 1401 88 15 121/57 82 97 04/07 1300 93 20 166/76 109 100 04/07 1200 98.2 04/07 1200 91 14 165/81 115 98 04/07 1115 87 17 161/77 110 98 04/07 1112 86 98 04/07 1100 23 04/07 1000 86 13 145/68 98 98 04/07 0901 87 159/61 93 100 04/07 0900 87 21 98 04/07 0801 78 14 133/66 94 98 04/07 0800 98.2 04/07 0700 79 14 117/59 83 98 04/07 0600 79 10 113/57 78 97 04/07 0507 82 15 112/56 76 97 04/07 0400 98.7 04/07 0400 84 12 137/63 90 97 04/07 0300 82 12 117/57 81 97 04/07 0200 84 12 110/57 78 97 04/07 0100 82 12 112/56 78 96 04/07 0000 98.6 04/07 0000 84 11 108/55 74 97 04/06 2300 86 12 104/56 74 96 04/06 2200 88 11 111/56 78 96 04/06 2130 87 14 111/56 78 96 04/06 2100 90 18 110/57 80 96 08/28 2029 91 14 115/57 81 97 08/29 1999 99.5 08/29 1999 90 10 98/54 73 96 08/28 1930 84 10 87/55 67 96 08/28 1830 86 103/55 69 95 04/ 1800 95 144/65 93 98 / 1730 91 152/70 101 98 / 1700 90 148/67 96 98 / 1630 89 152/72 104 98 / 1600 98.4 08/28 1600 88 151/73 105 98 04/ 1530 86 133/65 94 98 / 1500 82 144/71 102 98 / 1430 83 135/69 97 98 24 hour I O ending at 0700: 08/29 0700 08/28 1900 Intake Total 6310.00 560.00 Output Total 4650 2700 Balance 1660.00 -2140.00 Intake, IV 60.00 80.00 Intake, Oral 250 480 Intake, Other 6000 Intake, Tube Irrigant Output, Urine 4650 2700 Patient 69.9 kg Weight Weight Bed scale Measurement Method PATIENT WEIGHT: Weight (lb): 154 Weight (oz): 1.65 Weight (kg): 69.900 Antibiotic start date: Antibiotic: clindamycin Start Date: 08/18-08/25 Antibiotic: Vancomycin Start Date: 08/18-08/25 Antibiotic: daptomycin Start Date:08/25 Antibiotic: Merrem Start Date:08/27 Antibiotic: Teflaro Start Date:08/25-08/27 Physical Exam General appearance: alert, awake, oriented Wound/incision: Location: right BKA Head/Eyes: atraumatic, normocephalic Neck: supple/no meningismus, no JVD Cardiovascular: normal heart sounds, regular rat e rhythm, no murmur Respiratory: clear to auscultation, aerating wel l, symmetric expansion Abdomen: non-tender, soft, no distention Genitourinary: urinary catheter ( on CBI) Extremities: edema, right BKA 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, 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 Considered stroke alert: no Skin: lesions, no rash Psychiatry: normal affect, normal mood Results Findings/Data: Laboratory Tests 08/29 08/29 08/29 08/29 08/29 1041 0912 0844 0513 0513 Chemistry Sodium (134 - 147 mEq/L) 136 Potassium (3.4 - 5.0 mEq/L) 4.9 Chloride (100 - 108 mEq/L) 109 H Carbon Dioxide (21 - 33 mEq/l) 23 Anion Gap (0 - 20) 9 BUN (7 - 18 mg/dL) 31 H Creatinine (0.6 - 1.3 mg/dL) 1.5 H Glomerular Filtr Rate (90 - 95) 53.6 L Glucose (70 - 110 mg/dL) 90 POC Glucose (70 - 110 MG/DL) 105 70 70 Calcium (8.0 - 10.5 mg/dL) 7.2 L Phosphorus (2.5 - 4.9 MG/DL) 5.2 H Magnesium (1.80 - 2.40 mg/dL) 1.91 Prealbumin (16.0 - 40.0 mg/dL) < 5.0 L 08/28 1709 Chemistry POC Glucose (70 - 110 MG/DL) 145 H 103 Laboratory Tests 08/29 0513 Hematology WBC (4.5 - 11.0 x10 3/uL) 14.2 H RBC (4.00 - 5.60 x10 6/uL) 2.50 L Hgb (12.5 - 16.9 g/dL) 7.1 L Hct (37.5 - 50.7 %) 21.5 L MCV (81.0 - 99.0 fL) 86.0 MCH (27.0 - 33.0 pg) 28.4 MCHC (33.0 - 37.0 g/dL) 33.0 RDW (11.5 - 14.5 %) 14.6 H Plt Count (150 - 400 x10 3/uL) 212 MPV (7.0 - 9.0 fL) 9.2 H Neut % (Auto) (56.0 - 77.0 %) 83.2 H Lymph % (Auto) (14.0 - 32.0 %) 10.0 L Boundary % (Auto) (4.8 - 9.0 %) 5.6 Eos % (Auto) (0.3 - 3.7 %) 0.5 Baso % (Auto) (0.0 - 2.0 %) 0.1 Neut # (Auto) (2.0 - 7.6 x10 3/uL) 11.78 H Lymph # (Auto) (1.0 - 3.8 x10 3/uL) 1.42 Boundary # (Auto) (0.1 - 0.8 x10 3/uL) 0.79 Eos # (Auto) (0.0 - 0.2 x10 3/uL) 0.07 Baso # (Auto) (0.0 - 0.2 x10 3/uL) 0.02 Abs Immat Gran (auto) (0.00 - 0.03 x10 3/uL) 0. 08 H Add Manual Diff NO Immature Gran % (0.0 - 2.0 %) 0.6 Nucleated RBC % (0 - 0 %) 0.0 Nucleated RBCs # (Man) (0.0 - 0.1 x10 3/uL) 0.0 0 Laboratory Tests: 08/29 08/29 08/29 08/29 1041 0912 0844 0513 Chemistry POC Glucose (70 - 110 MG/DL) 105 70 70 Prealbumin (16.0 - 40.0 mg/dL) < 5.0 L 08/29 1709 1302 1218 Chemistry Sodium (134 - 147 mEq/L) 136 Potassium (3.4 - 5.0 mEq/L) 4.9 Chloride (100 - 108 mEq/L) 109 H Carbon Dioxide (21 - 33 mEq/l) 23 Anion Gap (0 - 20) 9 BUN (7 - 18 mg/dL) 31 H Creatinine (0.6 - 1.3 mg/dL) 1.5 H Glomerular Filtr Rate (90 - 95) 53.6 L Glucose (70 - 110 mg/dL) 90 POC Glucose (70 - 110 MG/DL) 145 H 103 206 H 18 5 H Calcium (8.0 - 10.5 mg/dL) 7.2 L Phosphorus (2.5 - 4.9 MG/DL) 5.2 H Magnesium (1.80 - 2.40 mg/dL) 1.91 Hematology WBC (4.5 - 11.0 x10 3/uL) 14.2 H RBC (4.00 - 5.60 x10 6/uL) 2.50 L Hgb (12.5 - 16.9 g/dL) 7.1 L Hct (37.5 - 50.7 %) 21.5 L MCV (81.0 - 99.0 fL) 86.0 MCH (27.0 - 33.0 pg) 28.4 MCHC (33.0 - 37.0 g/dL) 33.0 RDW (11.5 - 14.5 %) 14.6 H Plt Count (150 - 400 x10 3/uL) 212 MPV (7.0 - 9.0 fL) 9.2 H Neut % (Auto) (56.0 - 77.0 %) 83.2 H Lymph % (Auto) (14.0 - 32.0 %) 10.0 L Boundary % (Auto) (4.8 - 9.0 %) 5.6 Eos % (Auto) (0.3 - 3.7 %) 0.5 Baso % (Auto) (0.0 - 2.0 %) 0.1 Neut # (Auto) (2.0 - 7.6 x10 3/uL) 11.78 H Lymph # (Auto) (1.0 - 3.8 x10 3/uL) 1.42 Boundary # (Auto) (0.1 - 0.8 x10 3/uL) 0.79 Eos # (Auto) (0.0 - 0.2 x10 3/uL) 0.07 Baso # (Auto) (0.0 - 0.2 x10 3/uL) 0.02 Abs Immat Gran (auto) (0.00 - 0.03 0.08 H x10 3/uL) Add Manual Diff NO Immature Gran % (0.0 - 2.0 %) 0.6 Nucleated RBC % (0 - 0 %) 0.0 Nucleated RBCs # (Man) (0.0 - 0.1 0.00 x10 3/uL) 08/28 08/28 08/27 08/27 08/27 0624 0420 2050 1825 1728 Chemistry Sodium (134 - 147 mEq/L) 137 136 Potassium (3.4 - 5.0 mEq/L) 5.0 5.1 H Chloride (100 - 108 mEq/L) 109 H 109 H Carbon Dioxide (21 - 33 mEq/l) 21 20 L Anion Gap (0 - 20) 12 12 BUN (7 - 18 mg/dL) 30 H 30 H Creatinine (0.6 - 1.3 mg/dL) 1.4 H 1.2 Glomerular Filtr Rate (90 - 95) 58.3 L 70.1 L Glucose (70 - 110 mg/dL) 167 H 161 H POC Glucose (70 - 110 MG/DL) 180 H 87 148 H Calcium (8.0 - 10.5 mg/dL) 7.7 L 7.5 L Ionized Calcium Mitzi (1.09 - 1.30 1.12 MMOL/L) Phosphorus (2.5 - 4.9 MG/DL) 4.8 Magnesium (1.80 - 2.40 mg/dL) 1.89 Total Bilirubin (0.0 - 1.0 mg/dL) 0.40 AST (15 - 37 IUnit/L) 17 ALT (30 - 65 IUnit/L) 9 L Total Alk Phosphatase (20 - 125 IUnit/L) 111 Total Protein (6.4 - 8.2 g/dL) 5.8 L Albumin (3.4 - 5.0 g/dL) 1.30 L Hematology WBC (4.5 - 11.0 x10 3/uL) 13.8 H RBC (4.00 - 5.60 x10 6/uL) 2.83 L Hgb (12.5 - 16.9 g/dL) 8.0 L Hct (37.5 - 50.7 %) 24.0 L MCV (81.0 - 99.0 fL) 84.8 MCH (27.0 - 33.0 pg) 28.3 MCHC (33.0 - 37.0 g/dL) 33.3 RDW (11.5 - 14.5 %) 14.6 H Plt Count (150 - 400 x10 3/uL) 244 MPV (7.0 - 9.0 fL) 9.2 H Neut % (Auto) (56.0 - 77.0 %) 86.7 H Lymph % (Auto) (14.0 - 32.0 %) 8.2 L Boundary % (Auto) (4.8 - 9.0 %) 4.1 L Eos % (Auto) (0.3 - 3.7 %) 0.4 Baso % (Auto) (0.0 - 2.0 %) 0.1 Neut # (Auto) (2.0 - 7.6 x10 3/uL) 11.92 H Lymph # (Auto) (1.0 - 3.8 x10 3/uL) 1.13 Boundary # (Auto) (0.1 - 0.8 x10 3/uL) 0.57 Eos # (Auto) (0.0 - 0.2 x10 3/uL) 0.05 Baso # (Auto) (0.0 - 0.2 x10 3/uL) 0.01 Abs Immat Gran (auto) (0.00 - 0.03 0.07 H x10 3/uL) Add Manual Diff NO Immature Gran % (0.0 - 2.0 %) 0.5 Nucleated RBC % (0 - 0 %) 0.0 Nucleated RBCs # (Man) (0.0 - 0.1 0.00 x10 3/uL) Microbiology: Date/Time Procedure - Status Source Growth 08/29 1347 Blood Culture - RES BLOOD 08/29 1347 Blood Culture - RES BLOOD Recent Impressions: ULTRASOUND - DUP VEIN UNI/LTD 08/28 0857 Report Impression - Status: SIGNED Entered: 08/28/2022 0927 IMPRESSION: 1. No evidence of venous thrombosis involving le ft lower extremity. 2. Approximately 8 x 2 x 1.3 cm complex fluid co llection along the left upper calf probably representing a smal l hematoma. Impression By: [email or web address] - Hakeem Soto RADIOLOGY - XR FLUOROSCOPY 0-60 MIN 08/28 1101 Report Impression - Status: SIGNED Entered: 08/28/2022 1120 IMPRESSION: Fluoroscopy dosage documentation. See also separ ate procedure notes. Impression By: [email or web address] - Bishop Atkins M.D. Medication(s) Ordered: Anti-Infective Agents Sig/Jan Start time Last Medication Dose Route Stop Time Status Admin Cefazolin Sodium 1 GM Q8H 08/28 1215 AC 08/29 Sodium Chloride 10 ML IV 08/30 1315 1145 Meropenem 500 MG Q6H 08/27 1330 AC 08/29 Sterile Water 10 ML IV 09/03 1329 1343 Daptomycin 700 MG Q24H 08/25 1100 CKD 08/29 Sodium Chloride 50 ML IV 09/08 1059 1144 Blood Formation,Coagulation Sig/Jan Start time Last Medication Dose Route Stop Time Status Admin Heparin Sodium 5,000 UNIT Q8HR 08/18 0600 AC SUBQ 09/17 0559 1344 Cardiovascular Drugs Sig/Jan Start time Last Medication Dose Route Stop Time Status Admin Lidocaine HCl 2 ML PREOP ONCALL 08/27 1930 DC LOCAL 09/26 2359 Lidocaine HCl 2 ML PREOP ONCALL 08/27 1930 DC LOCAL 09/26 2359 Central Nervous System Agents Sig/Jan Start time Last Medication Dose Route Stop Time Status Admin Hydromorphone HCl 1 MG Q3H PRN PRN 08/28 1815 A C 08/29 IV 09/02 1814 1357 Hydromorphone HCl 0.5 MG Q3H PRN PRN 08/28 1815 AC IV 09/02 1814 Acetaminophen 1,000 MG PREOP ONCALL 08/27 1930 DC PO 09/26 2359 Gabapentin 200 MG PREOP ONCALL 08/27 193 DC PO 09/26 235 Lorazepam 1 MG ONCE PRN 08/21 09 AC 08/21 IV 09/20 0859 1143 Acetaminophen 650 MG Q6H PRN PRN 08/18 0945 AC 08/28 PO 09/17 0944 1548 Electrolytic, Caloric, And Daniel Sig/Jan Start time Last Medication Dose Route Stop Time Status Admin Lactated Ringer's 1,000 ML PREOP ONCALL 08/27 1 930 DC IV 05 2359 Sodium Chloride 500 ML PREOP ONCALL 08/27 1930 DC IV 09/26 2359 Sodium Chloride 500 ML PREOP ONCALL 08/27 1930 DC IV 09/26 2359 Sodium Chloride 1,000 ML PREOP ONCALL 08/27 193 0 DC IV 09/26 2359 Sodium Chloride 5 ML ASDIR PRN 08/27 1930 DC IV 05 1929 Sodium Chloride 10 ML ASDIR PRN 08/27 1930 DC IV 09/26 1929 Sodium Chloride 250 ML ASDIR PRN 08/27 1930 DC IV 05 1929 Sodium Chloride 0 ASDIR PRN 08/21 0900 AC IV 09/20 0859 Dextrose/Water 125 ML ASDIR PRN 08/20 1530 CKD IV 09/19 1529 Dextrose/Water 250 ML ASDIR PRN 08/20 1530 CKD IV 09/19 1529 Dextrose/Water 1,000 ML ASDIR 08/19 1015 AC IV 09/18 1014 Gastrointestinal Drugs Sig/Jan Start time Last Medication Dose Route Stop Time Status Admin Famotidine 20 MG BID 08/21 2100 AC 08/29 PO 09/20 2059 0846 Bisacodyl 10 MG DAILY PRN PRN 08/18 0945 AC RECTAL 09/17 0944 Docusate Sodium 100 MG Q12H PRN PRN 08/18 0945 AC 08/22 PO 09/17 0944 2109 Ondansetron HCl 4 MG Q6H PRN PRN 08/18 0945 AC IV 09/17 0944 Hormones And Synthetic Substit Sig/Jan Start time Last Medication Dose Route Stop Time Status Admin Insulin Glargine 20 UNIT BEDTIME 08/28 2100 AC 08/28 SUBQ 09/27 Insulin Glargine 15 UNIT BEDTIME 08/27 2100 DC 08/27 SUBQ 09/26 2058 214 Insulin Human Lispro 7 UNIT AC 08/20 1630 AC 0 06 SUBQ 09/19 1629 1319 Insulin Human Lispro 0 AC HS 08/20 1630 AC 04/0 6 SUBQ 09/19 1629 1319 Glucagon 1 MG ASDIR PRN 08/20 1530 AC IM 09/19 1529 Local Anesthetics (Parenteral) Sig/Jan Start time Last Medication Dose Route Stop Time Status Admin Lidocaine 1 PATCH DAILY 08/29 1230 AC 08/29 TOPICAL 09/28 1229 1343 Microbiology: 08/28 1348 BLOOD: Blood Culture - RES 08/28 1348 BLOOD: Blood Culture - RES 08/26 221 ABSCESS: Wound Culture - COMP CITROBACTER FARMERI ENTEROCOCCUS RAFFINOSUS STAPH AUREUS,METHICILLIN RESIS 08/26 2216 ABSCESS: Anaerobic Culture - COMP 08/26 221 ABSCESS: Gram Stain - COMP Recent Impressions: ULTRASOUND - DUP VEIN UNI/LTD 08/28 0857 Report Impression - Status: SIGNED Entered: 08/28/2022 0927 IMPRESSION: 1. No evidence of venous thrombosis involving le ft lower extremity. 2. Approximately 8 x 2 x 1.3 cm complex fluid co llection along the left upper calf probably representing a smal l hematoma. Impression By: [email or web address] - Hakeem Soto RADIOLOGY - XR FLUOROSCOPY 0-60 MIN 08/28 1101 Report Impression - Status: SIGNED Entered: 08/28/2022 1120 IMPRESSION: Fluoroscopy dosage documentation. See also separ ate procedure notes. Impression By: [email or web address] - Bishop Atkins M.D. Portions of this section wer e scribed by Jill Quintero on 08/29/22 at 1414 Treatment Prophylaxis Treatment Prophylaxis Lines: peripheral CVC/PICC documentation: The data below has been imported from nursing do cumentation. Any exceptions have been noted below under Provider comments. CVC/PICC insertion date/time: Provider comments on imported nursing data: [] Portions of this section janice kendall scribed by Jill Quintero on 08/29/22 at 1414 Diagnosis, Assessment Plan Free Text A P: Assessment: *MRSA bacteremia -Initial blood cultures from 08/18/2022 positive for MRSA in 2 out of 2 sets. -Repeat blood cultures 08/21/2022 are already po sitive for MRSA in 2 out of 2 sets, suggesting persistent high-grade bacteremi a. -TTE 08/18/2022 negative for any obvious vegetat ions. *Severe sepsis due to above *Right lower extremity necrotizing fasciitis -MRI of foot (+)Ve for osteomyelitis -s/p debridement on 08/19: cx grew MRSA *DKA *Prostatic abscess *ERIKA *Hyponatremia *Diabetic neuropathy *Diabetes mellitus type 2 *Hypertension Plan: 08/25 -Discussed the possibility of amputation with david cavazos and family at bedside -Recommend JIMENA. -Repeat blood cultures x2 again today. -Continue to repeat serial blood cultures till b acteremia clears. -D/C clindamycin and vancomycin. -start on DAptomycin and Teflaro -check urine cx Discussed with Dr. Bass about MRI report 08/26 -plan for transrectal aspiration of abscess toda y -repeat blood cx are still (+)Ve; will repeat bl ood cx tomorrow -cont on daptomycin and Teflaro day #2 -Pt needs a JIMENA r/o endocarditis as pt has high grade persistent bacteremia -plan for Right BKA on 08/28 4 -s/p transrectal aspiration and unroofing of abs cess; cx GNR; will follow - repeat blood cx today --cont on daptomycin and Teflaro day #3 -Pt needs a JIMENA r/o endocarditis as pt has high grade persistent bacteremia -plan for Right BKA on 08/28 08/28 s/p right BKA -repeat blood cx sent today -cont on Daptomycin day #4 -NEeds a JIMENA r/o endocarditis -prostate abscess: Coag (+)V e staph, citrobacter and Enterococcus; on Merrem day #2 4/7 follow repeat blood cx from 08/28; pt need atleast 14 days from neg bloodcx needs a JIMENA r/o endocarditis ; if (+)Ve need 6 weeks , if not able to do willneed 4 weeks -prostate abscess cx MRSA,citrobacter, Enterococ cus; cont on Merrem and Daptomycin until cx are final day#3 out of 2-3 w eeks Portions of this section wer e scribed by Jill Quintero on 08/29/22 at 1414 at 1740 RPT #:[id number] END OF REPORT 2022-08-29 09:48:00-00:00 [facility] ([facility]) Adult General Consultation REPORT#:[id number] REPORT STATUS: Signed DATE:08/29/22 TIME: 09 PATIENT: KARMA ROWLAND UNIT #: [id number] ROOM/BED: [place] [id number] : 63 AGE: 56 SEX: M ATTEND: Mikayla Ramires MD ADM AUTHOR: Mj Vences MD * ALL edits or amendments must be made on the el [employer]/computer document * History of Present Illness Requesting Clinician: Dr RAMIRES Reason for consult: Physical medicine and rehabilitation consultatio n Chief complaint: Pain and generalized weakness HPI: 56 yo HAM with long h/o DM, and HTN who was admitted for fever, flulike symptoms and altered mental status on 08/18. He was doing well until about 3 days prior to admission when he noted blister to have formed o n the dorsum of his foot. His foot started progressively getting more swollen and the blisters started enlarging and extending to his lateral f oot and ankle. He started feeling weak and nauseated. He was noted to have altered mentation and was brought to our ER. He was noted to be in DKA with Blood sugars grea ter than 600. He was seen by podiatry and surgery for BLE wounds and infectio n. He was treated in ICU for sepsis and DKA. He underwent incisional and excisional debridement of right foot and right ankle by podiatry. Patient also found to have prostate abscess underwent transrectal ultrasound aspiration of a bscess and transurethral resection of prostate and unroofing of abscess b y urology Dr. Bass. Endocrinology treated the DKA and blood sugars m uch improved. Patient's right foot was not salvageable and patient und erwent right BKA by Dr. LEROY on 08/28. Patient blood cultures showe d MRSA. Patient continued on antibiotics as per ID. MRI of the pelvis and foot completed. Patient r equired multiple PRBCs for anemia. Patient was found to have a possible small hematoma of the left calf on ultrasound. He complains of pain and swelling of the left ankle. Patient hemodynamically stable and plans are to be transferred to stepdown unit. He is on heparin subcu for VTE. Af ter surgery he is now being mobilized by PT and OT. He is wearing a [employer] orthotic for ri ght knee/BKA protection. Hemovac drain still in place. Prior to admission the patient w as independent living in a single-story house with his spouse with a few steps up to front and back door. 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 Wif e is at bedside. Patient denies nausea , vomiting, fever, chills, chest pain, shortness of breath with dizziness. He is requiring IV Dilaudid for pain control. Menta l status back to baseline. I was asked to evaluate the patient by physical me dicine and rehabilitation standpoint. History - Adult longitudinal Additional medical history: DM 2 since age 33 DM neuropathy HTN hyperlipidemia Additional surgical history: as above Additional family history: reviewed and non contributory Alcohol use: Denies EtOH use Drug use: Denies recreational drugs Smoking status for patients 13 years old or olde r: Former Smoker Other social history: Local resident[place] support Medications: Current Hospital Medications: Anti-Infective Agents Sig/Jan Start time Last Medication Dose Route Stop Time Status Admin Cefazolin Sodium 1 GM Q8H 08/28 1215 AC 08/29 (KEFZOL OR ANCEF) IV 04/08 1315 0427 Sodium Chloride 10 ML (SODIUM CHLORIDE) Meropenem 500 MG Q6H 08/27 1330 AC 08/29 (MEROPENEM) IV 09/03 1329 0846 Sterile Water 10 ML (WATER FOR INJECTION) Daptomycin 700 MG Q24H 08/25 1100 CKD 08/28 (CUBICIN 500MG) IV 09/08 1059 1318 Sodium Chloride 50 ML (SODIUM CHLORIDE 0.9%) Antihistamine Drugs Sig/Jan Start time Last Medication Dose Route Stop Time Status Admin Diphenhydramine HCl 12.5 MG PACU ONCE PRN 08/28 1045 DC (BENADRYL) IV 08/29 2035 Promethazine HCl 25 MG PACU ONCE PRN 08/28 1045 DC (PHENERGAN) PO 08/29 2035 Autonomic Drugs Sig/Jan Start time Last Medication Dose Route Stop Time Status Admin Norepinephrine 0 .STK-MED ONE 08/28 1102 DC Bitartrate IV (LEVOPHED BITARTATE) Phenylephrine HCl 0 .STK-MED ONE 08/28 1059 DC (YENNY-SYNEPHRINE 10MG/ .ROUTE ML AMP) Phenylephrine HCl 0 .STK-MED ONE 08/28 1014 DC (YENNY-SYNEPHRINE 10MG/ .ROUTE ML AMP) Blood Formation,Coagulation Sig/Jan Start time Last Medication Dose Route Stop Time Status Admin Heparin Sodium 5,000 UNIT Q8HR 08/18 0600 AC (HEPARIN 5000 UNITS/ SUBQ 09/17 0559 0557 ML) Cardiovascular Drugs Sig/Jan Start time Last Medication Dose Route Stop Time Status Admin Hydralazine HCl 5 MG PACU Q10MIN PRN PRN 08/28 1045 DC (APRESOLINE) IV 08/29 2035 Labetalol HCl 5 MG PACU Q10MIN PRN PRN 08/28 10 45 DC (LABETALOL HCL) IV 08/29 2035 Lidocaine HCl 0 .STK-MED ONE 08/28 1027 DC (LIDOCAINE HCL/PF) .ROUTE Lidocaine HCl 2 ML PREOP ONCALL 08/27 1929 DC (LIDOCAINE HCL/PF) LOCAL 09/26 2358 Lidocaine HCl 2 ML PREOP ONCALL 08/27 1929 DC (LIDOCAINE HCL/PF) LOCAL 09/26 2358 Central Nervous System Agents Sig/Jan Start time Last Medication Dose Route Stop Time Status Admin Hydromorphone HCl 1 MG Q3H PRN PRN 08/28 1815 A C 08/29 (DILAUDID) IV 09/02 1813 0434 Hydromorphone HCl 0.5 MG Q3H PRN PRN 08/28 181 AC (DILAUDID) IV 09/02 1813 Fentanyl Citrate 0 .STK-MED ONE 08/28 1155 DC (SUBLIMAZE) .ROUTE Fentanyl Citrate 100 MCG PACU Q10MIN PRN PRN 1045 DC (SUBLIMAZE) IV 08/29 2035 Fentanyl Citrate 50 MCG PACU Q10MIN PRN PRN 1045 DC (SUBLIMAZE) IV 08/28 203 Hydrocodone Bitart/ 1 TAB PACU ONCE 08/28 1045 DC Acetaminophen PO 08/29 2035 (NORCO 5/325) Hydromorphone HCl 1 MG PACU Q10MIN PRN PRN 04 6 1045 DC (DILAUDID) IV 08/29 2035 Hydromorphone HCl 0.5 MG PACU Q5MIN PRN PRN 1045 DC (DILAUDID) IV 08/28 203 Meperidine HCl 12.5 MG PACU ONCE PRN 08/28 1045 DC (MEPERIDINE HCL/PF) IV 08/28 203 Morphine Sulfate 2 MG PACU Q10MIN PRN PRN 08/28 1045 DC (morphine SULFATE) IV 08/28 203 Tramadol HCl 50 MG PACU ONCE 08/28 1045 DC (ULTRAM) PO 08/29 2035 Acetaminophen 1,000 MG PREOP ONCALL 08/27 1929 DC (TYLENOL EXTRA PO 09/26 2358 STRENGTH) Gabapentin 200 MG PREOP ONCALL 08/27 1929 DC (NEURONTIN) PO 09/26 235 Lorazepam 1 MG ONCE PRN 08/21 0900 AC 08/21 (ATIVAN) IV 09/20 0859 1143 Acetaminophen 650 MG Q6H PRN PRN 08/18 0945 AC 08/28 (TYLENOL) PO 09/17 0944 1548 Electrolytic, Caloric, And Daniel Sig/Jan Start time Last Medication Dose Route Stop Time Status Admin Lactated Ringer's 1,000 ML PREOP ONCALL 08/27 1 930 DC (LACTATED RINGERS) IV 09/26 2358 Sodium Chloride 500 ML PREOP ONCALL 08/27 1929 DC (SODIUM CHLORIDE IV 09/26 2358 0.9%) Sodium Chloride 500 ML PREOP ONCALL 08/27 1929 DC (SODIUM CHLORIDE IV 09/26 2358 0.9%) Sodium Chloride 1,000 ML PREOP ONCALL 08/27 193 0 DC (SODIUM CHLORIDE IV 09/26 2358 0.9%) Sodium Chloride 5 ML ASDIR PRN 08/27 1929 DC (SODIUM CHLORIDE) IV 09/26 1928 Sodium Chloride 10 ML ASDIR PRN 08/27 1929 DC (SODIUM CHLORIDE) IV 09/26 1928 Sodium Chloride 250 ML ASDIR PRN 08/27 193 DC (SODIUM CHLORIDE IV 09/26 1928 0.9%) Sodium Chloride 0 ASDIR PRN 08/21 0900 AC (SODIUM CHLORIDE) IV 09/20 0859 Dextrose/Water 125 ML ASDIR PRN 08/20 1530 CKD (DEXTROSE 10% IN IV 09/19 1529 WATER) Dextrose/Water 250 ML ASDIR PRN 08/20 1530 CKD (DEXTROSE 10% IN IV 09/19 1529 WATER) Dextrose/Water 1,000 ML ASDIR 08/19 1015 AC (Dextrose 10% 1,000 IV 09/18 1014 mL) Gastrointestinal Drugs Sig/Jan Start time Last Medication Dose Route Stop Time Status Admin Ondansetron HCl 4 MG PACU ONCE PRN 08/28 1045 D C (ZOFRAN) IV 08/29 2035 Ondansetron HCl 0 .STK-MED ONE 08/28 1014 DC (ZOFRAN) .ROUTE Famotidine 20 MG BID 08/21 2100 AC 08/29 (PEPCID) PO 09/20 2058 0846 Bisacodyl 10 MG DAILY PRN PRN 08/18 0945 AC (DULCOLAX) RECTAL 09/17 0944 Docusate Sodium 100 MG Q12H PRN PRN 08/18 0945 AC 08/22 (COLACE) PO 09/17 0844 2109 Ondansetron HCl 4 MG Q6H PRN PRN 08/18 0945 AC (ZOFRAN) IV 09/17 0944 Hormones And Synthetic Substit Sig/Jan Start time Last Medication Dose Route Stop Time Status Admin Insulin Glargine 20 UNIT BEDTIME 08/28 2100 AC 08/28 (Lantus/Semglee) SUBQ 09/27 Insulin Human Lispro 0 PACU ONCE PRN 08/28 1045 DC (HUMALOG) SUBQ 08/29 2035 Insulin Glargine 15 UNIT BEDTIME 08/27 2100 DC 08/27 (Lantus/Semglee) SUBQ 09/26 2058 214 Insulin Human Lispro 7 UNIT AC 08/20 1630 AC 06 (HUMALOG) SUBQ 09/19 162 1319 Insulin Human Lispro 0 AC HS 08/20 1630 AC 04/0 6 (HUMALOG) SUBQ 09/19 1629 1319 Glucagon 1 MG ASDIR PRN 08/20 1530 AC (GLUCAGON) IM 09/19 1529 Local Anesthetics (Parenteral) Sig/Jan Start time Last Medication Dose Route Stop Time Status Admin Ropivacaine 150 MG ASDIR PRN 08/28 104 DC (NAROPIN 0.5% 150 MG/ LOCAL 08/29 2035 30mL) Allergies: Coded Allergies: No Known Allergies (03/23/11) Ambulatory status: Independent Review of Systems Free Text ROS Notes Free Text ROS Notes: 14 point review of systems obtained. All systems reviewed are either negative or noncontributory or in the body of the consult ation Objective VS/I O: Last Documented: Result Date Time Pulse Ox 100 08/29 900 B/P 159/61 08/29 900 B/P Mean 93 08/29 900 Pulse 87 08/29 09 Resp 21 08/29 09 Temp 98.2 08/29 0800 O2 Delivery Room air 08/28 1235 O2 Flow Rate 7 08/28 1222 24 hour I O ending at 0700: 08/29 0700 08/28 1900 Intake Total 6310.00 560.00 Output Total 4650 2700 Balance 1660.00 -2140.00 Intake, IV 60.00 80.00 Intake, Oral 250 480 Intake, Other 6000 Intake, Tube Irrigant Output, Urine 4650 2700 Patient 154 lb Weight Weight Bed scale Measurement Method PATIENT WEIGHT: Weight (lb): 154 Weight (oz): 1.65 Weight (kg): 69.900 General appearance: alert, awake, oriented, no a cute distress Head/Eyes: atraumatic, clear cornea, EOMI, normo cephalic, PERRLA ENT: normal sinus, moist mucosal membranes Neck: non-tender, no JVD, supple/no meningismus Cardiovascular: pedal pulses present (L foot), r egular rate rhythm, normal heart sounds, BP/pulses equa l bilat., BUE distal pulse good, LLE distal pulses 1 +/4 Respiratory: aerating well, symmetric expansion, clear to auscultation, no distress Abdomen: soft, non-tender, no guarding, no rebou nd, no distention Genitourinary: CAMARENA/CBI-clear Extremities: moves all, no calf tenderness, no c lubbing, no cyanosis, R BKA W DSG, L ankle mild edema, sl tender, OA changes. Musculoskeletal: normal insp ection, no muscle spasm, MMT BUE 5/5, LLE 4/5, R hip 3-/5, R knee in [employer] orthotic 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: gait not tested, alert, oriented X 3, CNII-XII grossly intact Skin: dry, normal color, no rash, R BKA w dsg/ac e, hemovac drain Lymphatics: neck normal, no lymphadenopathy Psychiatry: normal affect, normal judgment/insig ht, normal mood Results Findings/Data: Laboratory Tests: 08/29 08/29 08/29 08/28 0912 0844 0545 2015 Chemistry Sodium (134 - 147 mEq/L) 136 Potassium (3.4 - 5.0 mEq/L) 4.9 Chloride (100 - 108 mEq/L) 109 H Carbon Dioxide (21 - 33 mEq/l) 23 Anion Gap (0 - 20) 9 BUN (7 - 18 mg/dL) 31 H Creatinine (0.6 - 1.3 mg/dL) 1.5 H Glomerular Filtr Rate (90 - 95) 53.6 L Glucose (70 - 110 mg/dL) 90 POC Glucose (70 - 110 MG/DL) 70 70 145 H Calcium (8.0 - 10.5 mg/dL) 7.2 L Phosphorus (2.5 - 4.9 MG/DL) 5.2 H Magnesium (1.80 - 2.40 mg/dL) 1.91 Hematology WBC (4.5 - 11.0 x10 3/uL) 14.2 H RBC (4.00 - 5.60 x10 6/uL) 2.50 L Hgb (12.5 - 16.9 g/dL) 7.1 L Hct (37.5 - 50.7 %) 21.5 L MCV (81.0 - 99.0 fL) 86.0 MCH (27.0 - 33.0 pg) 28.4 MCHC (33.0 - 37.0 g/dL) 33.0 RDW (11.5 - 14.5 %) 14.6 H Plt Count (150 - 400 x10 3/uL) 212 MPV (7.0 - 9.0 fL) 9.2 H Neut % (Auto) (56.0 - 77.0 %) 83.2 H Lymph % (Auto) (14.0 - 32.0 %) 10.0 L Boundary % (Auto) (4.8 - 9.0 %) 5.6 Eos % (Auto) (0.3 - 3.7 %) 0.5 Baso % (Auto) (0.0 - 2.0 %) 0.1 Neut # (Auto) (2.0 - 7.6 x10 3/uL) 11.78 H Lymph # (Auto) (1.0 - 3.8 x10 3/uL) 1.42 Boundary # (Auto) (0.1 - 0.8 x10 3/uL) 0.79 Eos # (Auto) (0.0 - 0.2 x10 3/uL) 0.07 Baso # (Auto) (0.0 - 0.2 x10 3/uL) 0.02 Abs Immat Gran (auto) (0.00 - 0.03 x10 3/uL) 0. 08 H Add Manual Diff NO Immature Gran % (0.0 - 2.0 %) 0.6 Nucleated RBC % (0 - 0 %) 0.0 Nucleated RBCs # (Man) (0.0 - 0.1 x10 3/uL) 0.0 0 08/28 08/28 08/28 1709 1302 1218 Chemistry POC Glucose (70 - 110 MG/DL) 103 206 H 185 H Microbiology: Date/Time Procedure - Status Source Growth 08/29 1347 Blood Culture - RECD BLOOD 08/29 1347 Blood Culture - RECD BLOOD Recent Impressions: RADIOLOGY - XR FLUOROSCOPY 0-60 MIN 08/28 1101 Report Impression - Status: SIGNED Entered: 08/28/2022 1120 IMPRESSION: Fluoroscopy dosage documentation. See also separ ate procedure notes. Impression By: Mala Atkins M.D. Recent Impressions: ULTRASOUND - DUP VEIN UNI/LTD 08/28 0857 Report Impression - Status: SIGNED Entered: 08/28/2022 09 IMPRESSION: 1. No evidence of venous thrombosis involving le ft lower extremity. 2. Approximately 8 x 2 x 1.3 cm complex fluid co llection along the left upper calf probably representing a smal l hematoma. Impression By: [email or web address] Hakeem Hall RADIOLOGY - XR FLUOROSCOPY 0-60 MIN 08/28 1101 Report Impression - Status: SIGNED Entered: 08/28/2022 112 IMPRESSION: Fluoroscopy dosage documentation. See also separ ate procedure notes. Impression By: Mala Atkins M.D. Diagnosis, Assessment Plan Orders: Procedure Date/time Status Case Management Consult 08/29 1156 Active 5 EAST PRE CERT EVALUATION 08/29 1156 Active Weight Bearing Status 08/29 1019 Active PREALBUMIN 08/29 1019 Complete PHYSICAL THERAPIST CONSULT 08/29 1019 Active Occupational Therapist Consult 08/29 1019 Acti ve Dietitian Consult 08/29 1019 Active Free Text DxA P Notes Free Text DxA P Notes: Assessment: 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 and necrotizing fasciitis S/p surgical debridement and washout S/p right BKA DKA, DM 2, poorly controlled Diabetic polyneuropathy Minimal PAD MRSA bacteremia/sepsis ERIKA Severe hyponatremia-resolved HTN Acute on chronic anemia Left calf hematoma Edema and clinical arthritis left ankle Prostatic abscess s/p transrectal ultrasound asp iration of abscess and transurethral resection of prostate and unroofin g of abscess Echo: EF 55-59%, grade 1 diastolic dysfunction Hypoalbuminemia Significant impairment in self-care, ADLs and fu nctional mobility Plan: -Continue PT and OT -Case management for safe discharge planning. -Decubitus prevention -Nutrition, monitor the patient's p.o. intake, a lbumin 1.3, check prealbumin, dietary consultation, protein supplements promot e healing -Strict fall and safety precaution -DVT prophylaxis-subcutaneous heparin -GI prophylaxis on Pepcid -Early mobilization-OOB to chair -Work on bed mobility, transfer training , ADLs, pre-gait and gait exercises as tolerable. -Increase endurance and strength -Pain management-patient requiring IV Dilaudid -Glycemic control as per endo-blood sugars much improved -Monitor labs-WBC trending down, hemoglo bin 7.1, sodium normal, creatinine 1.5 -Has received multiple units of PRBCs-check CBC in a.m. -ID requesting JIMENA to rule out endocarditis, con tinue ABX -Patient on CBI and urine is clear- following -Edema and clinical arthritis left ankle-Lidoder m patch and Oralia wrap -NWB right BKA, continue [employer] orthotic, I wi ll examine incision on Thursday -Right BKA amputee rehab -Excellent candidate for inpatient rehab, admit preauthorization if okay with rehabilitation admissions. Referral to 5 E. reha b ordered. Patient and would like to stay here at [facility]. -We will continue to monitor patients progress and make further recommendations Thank you Dr. Ramires for this kind referral. TT 68 min>50% with discussing with patient and w bishop about recommendations for IRF, rehab plan of care, goals, expectations, ne eds, and medical issues, examination. MAR and EMR reviewed. All Questions answered. at 1224 RPT #:[id number] END OF REPORT 2022-08-29 06:54:00-00:00 [facility] ([facility]) Hospitalist Progress Note REPORT#:[id number] REPORT STATUS: Signed DATE:08/29/22 TIME: 653 PATIENT: KARMA ROWLAND UNIT #: [id number] ROOM/BED: [facility] : 63 AGE: 56 SEX: M ATTEND: Mikayla Ramires MD ADM AUTHOR: Wilbert Ramires MD * ALL edits or amendments must be made on the el ectronic/computer document * Subjective Chief complaint: AMS and right foot infection. s/p extensive debridement. s/p BKA. pain controlled Review of Systems All systems rev neg: except as noted Objective General VS/I O: Vital Signs: Date Time Temp Pulse Resp B/P B/P Pulse O2 O2 F low FiO2 Mean Ox Delivery Rate 04/07 0600 79 10 113/57 78 97 04/07 0507 82 15 112/56 76 97 04/07 0400 98.7 04/07 0400 84 12 137/63 90 97 04/07 0300 82 12 117/57 81 97 04/07 0200 84 12 110/57 78 97 04/07 0100 82 12 112/56 78 96 04/07 0000 98.6 04/07 0000 84 11 108/55 74 97 04/06 2300 86 12 104/56 74 96 04/06 2200 88 11 111/56 78 96 04/06 2130 87 14 111/56 78 96 04/06 2100 90 18 110/57 80 96 04/06 2030 91 14 115/57 81 97 04/06 1999 99.5 04/06 1999 90 10 98/54 73 96 04/06 1930 84 10 87/55 67 96 04/06 1830 86 103/55 69 95 04/06 1800 95 144/65 93 98 04/06 1730 91 152/70 101 98 04/06 1700 90 148/67 96 98 04/06 1630 89 152/72 104 98 04/06 1600 98.4 04/06 1600 88 151/73 105 98 04/06 1530 86 133/65 94 98 04/06 1500 82 144/71 102 98 04/06 1430 83 135/69 97 98 04/06 1400 80 129/63 89 97 04/06 1330 84 131/61 88 97 04/06 1300 98.5 04/06 1300 81 119/58 81 96 04/06 1258 81 125/59 85 97 04/06 1253 82 11 114/57 80 95 04/06 1235 97.5 80 11 108/56 97 Room air 04/06 1230 80 12 97/57 97 04/06 1225 81 12 117/59 96 04/06 1222 7 04/06 1220 80 9 119/56 100 04/06 1215 80 10 117/61 100 04/06 1210 97.5 83 10 114/57 96 Simple 5 mask 04/06 0930 90 19 127/62 89 96 04/06 0900 86 17 124/64 87 96 04/06 0830 90 14 119/58 81 95 04/06 0800 98.4 08/28 0800 87 13 133/63 90 95 08/28 0745 85 15 130/63 90 95 08/28 0630 87 16 102/55 72 97 08/28 0715 87 14 119/60 84 95 08/28 0700 87 10 120/62 85 94 24 hour I O ending at 0700: 08/29 0700 08/28 1900 Intake Total 6310.00 560.00 Output Total 4650 2700 Balance 1660.00 -2140.00 Intake, IV 60.00 80.00 Intake, Oral 250 480 Intake, Other 6000 Intake, Tube Irrigant Output, Urine 4650 2700 Patient 69.9 kg Weight Weight Bed scale Measurement Method PATIENT WEIGHT: Weight (lb): 154 Weight (oz): 1.65 Weight (kg): 69.900 Medications: Active Meds + DC'd Last 24 Hrs Insulin Glargine (Lantus/Semglee) 20 UNIT BEDTIM E SUBQ Hydromorphone HCl (DILAUDID) 1 MG Q3H PRN PRN IV Hydromorphone HCl (DILAUDID) 0.5 MG Q3H PRN PRN IV Cefazolin Sodium (KEFZOL OR ANCEF) 1 GM Q8H IV Sodium Chloride (SODIUM CHLORIDE) 10 ML Fentanyl Citrate (SUBLIMAZE) 0 .STK-MED ONE .ROU TE (DC) Norepinephrine Bitartrate (LEVOPHED BITARTATE) 0 .STK-MED ONE IV (DC) Phenylephrine HCl (YENNY-SYNEPHRINE 10MG/ML AMP) 0 .STK-MED ONE .ROUTE (DC ) Diphenhydramine HCl (BENADRYL) 12.5 MG PACU ONCE PRN IV (DC) Fentanyl Citrate (SUBLIMAZE) 100 MCG PACU Q10MIN PRN PRN IV (DC) Fentanyl Citrate (SUBLIMAZE) 50 MCG PACU Q10MIN PRN PRN IV (DC) Hydralazine HCl (APRESOLINE) 5 MG PACU Q10MIN NV N PRN IV (DC) Hydrocodone Bitart/Acetaminophen (NORCO 5/325) 1 TAB PACU ONCE PO (DC) Hydromorphone HCl (DILAUDID) 1 MG PACU Q10MIN NV N PRN IV (DC) Hydromorphone HCl (DILAUDID) 0.5 MG PACU Q5MIN P RN PRN IV (DC) Insulin Human Lispro (HUMALOG) 0 PACU ONCE PRN S UBQ (DC) Labetalol HCl (LABETALOL HCL) 5 MG PACU Q10MIN P RN PRN IV (DC) Meperidine HCl (MEPERIDINE HCL/PF) 12.5 MG PACU ONCE PRN IV (DC) Morphine Sulfate (morphine SULFATE) 2 MG PACU Q1 0MIN PRN PRN IV (DC) Ondansetron HCl (ZOFRAN) 4 MG PACU ONCE PRN IV ( DC) Promethazine HCl (PHENERGAN) 25 MG PACU ONCE PRN PO (DC) Ropivacaine (NAROPIN 0.5% 150 MG/30mL) 150 MG DIR PRN LOCAL (DC) Tramadol HCl (ULTRAM) 50 MG PACU ONCE PO (DC) Lidocaine HCl (LIDOCAINE HCL/PF) 0 .STK-MED ONE .ROUTE (DC) Ondansetron HCl (ZOFRAN) 0 .STK-MED ONE .ROUTE ( DC) Phenylephrine HCl (YENNY-SYNEPHRINE 10MG/ML AMP) 0 .STK-MED ONE .ROUTE (DC ) Fentanyl Citrate (SUBLIMAZE) 0 .STK-MED ONE .ROU TE (DC) Lidocaine HCl (XYLOCAINE) 0 .STK-MED ONE .ROUTE (DC) Midazolam HCl (VERSED) 0 .STK-MED ONE .ROUTE (DC ) Propofol (DIPRIVAN 200MG/20ML INJECTION) 20 ML . STK-MED ONE IV (DC) Insulin Glargine (Lantus/Semglee) 15 UNIT BEDTIM E SUBQ (DC) Acetaminophen (TYLENOL EXTRA STRENGTH) 1,000 MG PREOP ONCALL PO (DC) Gabapentin (NEURONTIN) 200 MG PREOP ONCALL PO (D C) Lactated Ringer's (LACTATED RINGERS) 1,000 ML NV EOP ONCALL IV (DC) Lidocaine HCl (LIDOCAINE HCL/PF) 2 ML PREOP ONCA LL LOCAL (DC) Lidocaine HCl (LIDOCAINE HCL/PF) 2 ML PREOP ONCA LL LOCAL (DC) Sodium Chloride (SODIUM CHLORIDE 0.9%) 500 ML NV EOP ONCALL IV (DC) Sodium Chloride (SODIUM CHLORIDE 0.9%) 500 ML NV EOP ONCALL IV (DC) Sodium Chloride (SODIUM CHLORIDE 0.9%) 1,000 ML PREOP ONCALL IV (DC) Sodium Chloride (SODIUM CHLORIDE) 5 ML ASDIR PRN IV (DC) Sodium Chloride (SODIUM CHLORIDE) 10 ML ASDIR NV N IV (DC) Sodium Chloride (SODIUM CHLORIDE 0.9%) 250 ML DIR PRN IV (DC) Meropenem (MEROPENEM) 500 MG Q6H IV Sterile Water (WATER FOR INJECTION) 10 ML Daptomycin (CUBICIN 500MG) 700 MG Q24H IV (CKD) Sodium Chloride (SODIUM CHLORIDE 0.9%) 50 ML Famotidine (PEPCID) 20 MG BID PO Lorazepam (ATIVAN) 1 MG ONCE PRN IV Sodium Chloride (SODIUM CHLORIDE) 0 ASDIR PRN IV Insulin Human Lispro (HUMALOG) 7 UNIT AC SUBQ Insulin Human Lispro (HUMALOG) 0 AC HS SUBQ Dextrose/Water (DEXTROSE 10% IN WATER) 125 ML DIR PRN IV (CKD) Dextrose/Water (DEXTROSE 10% IN WATER) 250 ML DIR PRN IV (CKD) Glucagon (GLUCAGON) 1 MG ASDIR PRN IM Dextrose/Water (Dextrose 10% 1,000 mL) 1,000 ML ASDIR IV Acetaminophen (TYLENOL) 650 MG Q6H PRN PRN PO Bisacodyl (DULCOLAX) 10 MG DAILY PRN PRN RECTAL Docusate Sodium (COLACE) 100 MG Q12H PRN PRN PO Ondansetron HCl (ZOFRAN) 4 MG Q6H PRN PRN IV Heparin Sodium (HEPARIN 5000 UNITS/ML) 5,000 UNI T Q8HR SUBQ Physical Exam General appearance: alert, awake, oriented Head/Eyes: normocephalic ENT: moist mucosal membranes Neck: no JVD Cardiovascular: regular rate rhythm, no heave Respiratory: aerating well, clear to auscultatio n, symmetric expansion, no distress Abdomen: non-tender, normal bowel sounds, soft, no distention Genitourinary: no bladder distention Extremities: R foot in dressing 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 X 3, 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 Considered stroke alert: no Skin: no rash Psychiatry: normal affect, normal judgment/insig ht, normal mood Results Findings/Data: Laboratory Tests 08/2913 2016 1709 1302 1218 Chemistry Sodium (134 - 147 mEq/L) 136 Potassium (3.4 - 5.0 mEq/L) 4.9 Chloride (100 - 108 mEq/L) 109 H Carbon Dioxide (21 - 33 mEq/l) 23 Anion Gap (0 - 20) 9 BUN (7 - 18 mg/dL) 31 H Creatinine (0.6 - 1.3 mg/dL) 1.5 H Glomerular Filtr Rate (90 - 95) 53.6 L Glucose (70 - 110 mg/dL) 90 POC Glucose (70 - 110 MG/DL) 145 H 103 206 H 18 5 H Calcium (8.0 - 10.5 mg/dL) 7.2 L Phosphorus (2.5 - 4.9 MG/DL) 5.2 H Magnesium (1.80 - 2.40 mg/dL) 1.91 Laboratory Tests 08/29 512 Hematology WBC (4.5 - 11.0 x10 3/uL) 14.2 H RBC (4.00 - 5.60 x10 6/uL) 2.50 L Hgb (12.5 - 16.9 g/dL) 7.1 L Hct (37.5 - 50.7 %) 21.5 L MCV (81.0 - 99.0 fL) 86.0 MCH (27.0 - 33.0 pg) 28.4 MCHC (33.0 - 37.0 g/dL) 33.0 RDW (11.5 - 14.5 %) 14.6 H Plt Count (150 - 400 x10 3/uL) 212 MPV (7.0 - 9.0 fL) 9.2 H Neut % (Auto) (56.0 - 77.0 %) 83.2 H Lymph % (Auto) (14.0 - 32.0 %) 10.0 L Boundary % (Auto) (4.8 - 9.0 %) 5.6 Eos % (Auto) (0.3 - 3.7 %) 0.5 Baso % (Auto) (0.0 - 2.0 %) 0.1 Neut # (Auto) (2.0 - 7.6 x10 3/uL) 11.78 H Lymph # (Auto) (1.0 - 3.8 x10 3/uL) 1.42 Boundary # (Auto) (0.1 - 0.8 x10 3/uL) 0.79 Eos # (Auto) (0.0 - 0.2 x10 3/uL) 0.07 Baso # (Auto) (0.0 - 0.2 x10 3/uL) 0.02 Abs Immat Gran (auto) (0.00 - 0.03 x10 3/uL) 0. 08 H Add Manual Diff NO Immature Gran % (0.0 - 2.0 %) 0.6 Nucleated RBC % (0 - 0 %) 0.0 Nucleated RBCs # (Man) (0.0 - 0.1 x10 3/uL) 0.0 0 Radiology data: Recent Impressions: ULTRASOUND - DUP VEIN UNI/LTD 08/28 0857 Report Impression - Status: SIGNED Entered: 08/28/2022 0927 IMPRESSION: 1. No evidence of venous thrombosis involving le ft lower extremity. 2. Approximately 8 x 2 x 1.3 cm complex fluid co llection along the left upper calf probably representing a smal l hematoma. Impression By: [email or web address] - Hakeem Soto RADIOLOGY - XR FLUOROSCOPY 0-60 MIN 08/28 1101 Report Impression - Status: SIGNED Entered: 08/28/2022 1120 IMPRESSION: Fluoroscopy dosage documentation. See also separ ate procedure notes. Impression By: [email or web address] - Bishop Atkins M.D. Diagnosis, Assessment Plan Free Text DxA P Notes Free text DxA P notes: DKA DM 2, poorly controlled severe gas gangrene, right foot/necrotizing fasc itis - s/p BKA MRSA bacteremia ERIKA severe hyponatremia likely due to combination of severe hyperglycemia and dehydration from DKA sepsis due to foot infection DM neuropathy HTN anemia, acute due to blood loss left calf hematoma prostatic abscess with Citrobacter and enterococ cus Plans: - admit to ICU - continue IV fluids aggressively - monitor lytes and AG - IV insulin drip for now until gap closes - endo eval - keep on Vancomycin and Zosyn - podiatry eval - d.w Wojciech Hernandez - likely will need debridement - MRI of foot ordered - endo eval for management of DM. - HgbA1c of 13.4 - Urology consulted for hypodensity in prostate - ? abscess, not likely. not much symptoms - lovenox for VTE - check iron panel, TSH - fall precautions - not much pain needs likely due to neuropathy 08/19/2022 - blood cultures showing MRSA - Echo ordered - continue Vancomycin/Clinda and Meropenem. Id following - podiatry planning for I D today. Surgery on hal farias if needed to further debride his lower leg vs amputation. - WBC improving - will type and cross for blood and transfuse i f less than 7 gms - d.w at bedside - patient and is aware that he may require amputation if his tissues are non viable - remains on Insulin drip. blood sugars in the 200-300 range. AG has closed. endocrine is following. - keep in ICU 08/20/2022 - s/p extensive I D of right foot. - tissue cx showing MRSA - follow echo results - WBC remains elevated - continue IV antibiotics - MRI of pelvis pending to eval prostate lesion - MRI of foot pending to eval for osteo. - wean off insulin drip. Subq insulin and slidi ng scale. endo following - pain controlled - will likely need wound vac and half-way IV a ntibiotic therapy - d/w at bedside - PT/OT 08/21/2022 - continue IV antibitoics - wound care with pulse lavage. will likely nee d wound vac at some point - off insulin drip - tolerating diet. d/c IV fluids - pain controlled - awaiting MRI of his foot and pelvis - fall precautions - transfer to floor 08/22/2022 - continue Vanco and Clinda IV - pulse lavage for wound care - pain control - blood sugars reasonably controlled - mobilize - fall precautions - follow hgb and transfuse as needed - awaiting floor transfer 08/23/2022 - transfuse blood for anemia. no overt blood lo ss - continue IV antibiotics - mobilize - pulse lavage to wound. ? wound vac - continue to monitor blood sugars - floor transfer - d/w 08/24/2022 - follow hgb and transfuse as needed - IV antibiotics - anesthesia consult for MRI - blood sugars ok - pulse lavage - await podiatry eval for wound care - ? wound vac - d.w at bedside 08/25/22 Continue abx (Dapto and Teflaro) as per ID Updated Urology on MRI resul ts, Dr. Bass will review images and discuss with family for possible prostate/seminal vesicle abs cess Cont wound care as per Podiatry, may have debrid ement today BP and BS well controlled K+ high, repeat level Hgb 7.3 stable Discussed with at bedside 08/26/2022 - hgb low. will transfuse 2 units - d.w Dr. Pedersen - patient has lost so much ti ssues in his foot that his potential for wound closure and usabilit y of his foot is poor. Recommendations made to proceed with BKA - continue to monitor blood sugars - IV antibitoics - wound care - urology planning for aspiration of prostatic cyst seen on MRI. PSA normal - OOB 08/27/22 s/p transfusion planned for BKA IV antibiotics Wound care DM - managed with insulin DVT prophylaxis 08/28/2022 - noted left leg swelling and pain - patient on Heparin SQ for VTE. will order sta t venous US - planning for right BKA today - continue IV antibiotics per ID - follow blood sugars closely - will need PT/OT and possible rehab post surge ry - d/w at bedside 08/29/2022 - US showing possible hematoma in left calf. no DVT - s/p BKA - no phantom pain at this time - continue IV antibiotics - PT/OT. will need rehab - PM R eval - continue Meropenem and Daptomycin per ID - cultures from prostate noted - ok to transfer to floor - follow hgb and transfuse if hgb less than 7 g ms - Heparin SQ for VTE Electronically Signed by Wilbert Ramires MD on at 0659 RPT #:[id number] END OF REPORT 2022-08-28 17:45:00-00:00 [facility] ([facility]) Endocrinology Progress Note REPORT#:[id number] REPORT STATUS: Signed DATE:08/28/22 TIME: 1744 PATIENT: KARMA ROWLAND UNIT #: [id number] ROOM/BED: M325-1 : 63 AGE: 56 SEX: M ATTEND: David Ramires MD ADM AUTHOR: Braxton Chapin MD * ALL edits or amendments must be made on the el ectronic/computer document * Subjective Patient reports: no complaints Objective General VS: Last Documented: Result Date Time Pulse Ox 98 08/28 1730 B/P 152/70 08/28 1730 B/P Mean 101 08/28 1730 Pulse 91 08/28 1730 Temp 36.9 08/28 1600 O2 Delivery Room air 08/28 1235 Resp 11 08/28 1235 O2 Flow Rate 7 08/28 1222 PATIENT WEIGHT: Weight (lb): 165 Weight (oz): 2.02 Weight (kg): 74.900 Medications: Active Meds + DC'd Last 24 Hrs Cefazolin Sodium (KEFZOL OR ANCEF) 1 GM Q8H IV Sodium Chloride (SODIUM CHLORIDE) 10 ML Fentanyl Citrate (SUBLIMAZE) 0 .STK-MED ONE .ROU TE (DC) Norepinephrine Bitartrate (LEVOPHED BITARTATE) 0 .STK-MED ONE IV (DC) Phenylephrine HCl (YENNY-SYNEPHRINE 10MG/ML AMP) 0 .STK-MED ONE .ROUTE (DC ) Diphenhydramine HCl (BENADRYL) 12.5 MG PACU ONCE PRN IV (DC) Fentanyl Citrate (SUBLIMAZE) 100 MCG PACU Q10MIN PRN PRN IV (DC) Fentanyl Citrate (SUBLIMAZE) 50 MCG PACU Q10MIN PRN PRN IV (DC) Hydralazine HCl (APRESOLINE) 5 MG PACU Q10MIN NV N PRN IV (DC) Hydrocodone Bitart/Acetaminophen (NORCO 5/325) 1 TAB PACU ONCE PO (DC) Hydromorphone HCl (DILAUDID) 1 MG PACU Q10MIN NV N PRN IV (DC) Hydromorphone HCl (DILAUDID) 0.5 MG PACU Q5MIN P RN PRN IV (DC) Insulin Human Lispro (HUMALOG) 0 PACU ONCE PRN S UBQ (DC) Labetalol HCl (LABETALOL HCL) 5 MG PACU Q10MIN P RN PRN IV (DC) Meperidine HCl (MEPERIDINE HCL/PF) 12.5 MG PACU ONCE PRN IV (DC) Morphine Sulfate (morphine SULFATE) 2 MG PACU Q1 0MIN PRN PRN IV (DC) Ondansetron HCl (ZOFRAN) 4 MG PACU ONCE PRN IV ( DC) Promethazine HCl (PHENERGAN) 25 MG PACU ONCE PRN PO (DC) Ropivacaine (NAROPIN 0.5% 150 MG/30mL) 150 MG DIR PRN LOCAL (DC) Tramadol HCl (ULTRAM) 50 MG PACU ONCE PO (DC) Lidocaine HCl (LIDOCAINE HCL/PF) 0 .STK-MED ONE .ROUTE (DC) Ondansetron HCl (ZOFRAN) 0 .STK-MED ONE .ROUTE ( DC) Phenylephrine HCl (YENNY-SYNEPHRINE 10MG/ML AMP) 0 .STK-MED ONE .ROUTE (DC ) Fentanyl Citrate (SUBLIMAZE) 0 .STK-MED ONE .ROU TE (DC) Lidocaine HCl (XYLOCAINE) 0 .STK-MED ONE .ROUTE (DC) Midazolam HCl (VERSED) 0 .STK-MED ONE .ROUTE (DC ) Propofol (DIPRIVAN 200MG/20ML INJECTION) 20 ML . STK-MED ONE IV (DC) Insulin Glargine (Lantus/Semglee) 15 UNIT BEDTIM E SUBQ Acetaminophen (TYLENOL EXTRA STRENGTH) 1,000 MG PREOP ONCALL PO (DC) Gabapentin (NEURONTIN) 200 MG PREOP ONCALL PO (D C) Lactated Ringer's (LACTATED RINGERS) 1,000 ML NV EOP ONCALL IV (DC) Lidocaine HCl (LIDOCAINE HCL/PF) 2 ML PREOP ONCA LL LOCAL (DC) Lidocaine HCl (LIDOCAINE HCL/PF) 2 ML PREOP ONCA LL LOCAL (DC) Sodium Chloride (SODIUM CHLORIDE 0.9%) 500 ML NV EOP ONCALL IV (DC) Sodium Chloride (SODIUM CHLORIDE 0.9%) 500 ML NV EOP ONCALL IV (DC) Sodium Chloride (SODIUM CHLORIDE 0.9%) 1,000 ML PREOP ONCALL IV (DC) Sodium Chloride (SODIUM CHLORIDE) 5 ML ASDIR PRN IV (DC) Sodium Chloride (SODIUM CHLORIDE) 10 ML ASDIR NV N IV (DC) Sodium Chloride (SODIUM CHLORIDE 0.9%) 250 ML DIR PRN IV (DC) Meropenem (MEROPENEM) 500 MG Q6H IV Sterile Water (WATER FOR INJECTION) 10 ML Daptomycin (CUBICIN 500MG) 700 MG Q24H IV (CKD) Sodium Chloride (SODIUM CHLORIDE 0.9%) 50 ML Famotidine (PEPCID) 20 MG BID PO Lorazepam (ATIVAN) 1 MG ONCE PRN IV Sodium Chloride (SODIUM CHLORIDE) 0 ASDIR PRN IV Insulin Glargine (Lantus/Semglee) 25 UNIT BEDTIM E SUBQ (DC) Insulin Human Lispro (HUMALOG) 7 UNIT AC SUBQ Insulin Human Lispro (HUMALOG) 0 AC HS SUBQ Dextrose/Water (DEXTROSE 10% IN WATER) 125 ML DIR PRN IV (CKD) Dextrose/Water (DEXTROSE 10% IN WATER) 250 ML DIR PRN IV (CKD) Glucagon (GLUCAGON) 1 MG ASDIR PRN IM Dextrose/Water (Dextrose 10% 1,000 mL) 1,000 ML ASDIR IV Acetaminophen (TYLENOL) 650 MG Q6H PRN PRN PO Bisacodyl (DULCOLAX) 10 MG DAILY PRN PRN RECTAL Docusate Sodium (COLACE) 100 MG Q12H PRN PRN PO Ondansetron HCl (ZOFRAN) 4 MG Q6H PRN PRN IV Heparin Sodium (HEPARIN 5000 UNITS/ML) 5,000 UNI T Q8HR SUBQ Physical Exam General appearance: alert, awake Diagnosis, Assessment Plan Hospital course to date: Laboratory Tests: 08/28 08/28 08/28 08/28 1709 1302 1218 0624 Chemistry POC Glucose (70 - 110 MG/DL) 103 206 H 185 H 1 80 H 08/28 08/27 04 0420 2050 1825 Chemistry Sodium (134 - 147 mEq/L) 137 136 Potassium (3.4 - 5.0 mEq/L) 5.0 5.1 H Chloride (100 - 108 mEq/L) 109 H 109 H Carbon Dioxide (21 - 33 mEq/l) 21 20 L Anion Gap (0 - 20) 12 12 BUN (7 - 18 mg/dL) 30 H 30 H Creatinine (0.6 - 1.3 mg/dL) 1.4 H 1.2 Glomerular Filtr Rate (90 - 95) 58.3 L 70.1 L Glucose (70 - 110 mg/dL) 167 H 161 H POC Glucose (70 - 110 MG/DL) 87 Calcium (8.0 - 10.5 mg/dL) 7.7 L 7.5 L Ionized Calcium Mitzi (1.09 - 1.30 MMOL/L) 1.12 Phosphorus (2.5 - 4.9 MG/DL) 4.8 Magnesium (1.80 - 2.40 mg/dL) 1.89 Total Bilirubin (0.0 - 1.0 mg/dL) 0.40 AST (15 - 37 IUnit/L) 17 ALT (30 - 65 IUnit/L) 9 L Total Alk Phosphatase (20 - 125 IUnit/L) 111 Total Protein (6.4 - 8.2 g/dL) 5.8 L Albumin (3.4 - 5.0 g/dL) 1.30 L Hematology WBC (4.5 - 11.0 x10 3/uL) 13.8 H RBC (4.00 - 5.60 x10 6/uL) 2.83 L Hgb (12.5 - 16.9 g/dL) 8.0 L Hct (37.5 - 50.7 %) 24.0 L MCV (81.0 - 99.0 fL) 84.8 MCH (27.0 - 33.0 pg) 28.3 MCHC (33.0 - 37.0 g/dL) 33.3 RDW (11.5 - 14.5 %) 14.6 H Plt Count (150 - 400 x10 3/uL) 244 MPV (7.0 - 9.0 fL) 9.2 H Neut % (Auto) (56.0 - 77.0 %) 86.7 H Lymph % (Auto) (14.0 - 32.0 %) 8.2 L Boundary % (Auto) (4.8 - 9.0 %) 4.1 L Eos % (Auto) (0.3 - 3.7 %) 0.4 Baso % (Auto) (0.0 - 2.0 %) 0.1 Neut # (Auto) (2.0 - 7.6 x10 3/uL) 11.92 H Lymph # (Auto) (1.0 - 3.8 x10 3/uL) 1.13 Boundary # (Auto) (0.1 - 0.8 x10 3/uL) 0.57 Eos # (Auto) (0.0 - 0.2 x10 3/uL) 0.05 Baso # (Auto) (0.0 - 0.2 x10 3/uL) 0.01 Abs Immat Gran (auto) (0.00 - 0.03 x10 3/uL) 0. 07 H Add Manual Diff NO Immature Gran % (0.0 - 2.0 %) 0.5 Nucleated RBC % (0 - 0 %) 0.0 Nucleated RBCs # (Man) (0.0 - 0.1 x10 3/uL) 0.0 0 Microbiology: Date/Time Procedure - Status Source Growth 08/29 1347 Blood Culture - RECD BLOOD 08/29 1347 Blood Culture - RECD BLOOD Recent Impressions: ULTRASOUND - DUP VEIN UNI/LTD 08/28 0857 Report Impression - Status: SIGNED Entered: 08/28/2022 0927 IMPRESSION: 1. No evidence of venous thrombosis involving le ft lower extremity. 2. Approximately 8 x 2 x 1.3 cm complex fluid co llection along the left upper calf probably representing a smal l hematoma. Impression By: [email or web address] - Hakeem Soto RADIOLOGY - XR FLUOROSCOPY 0-60 MIN 08/28 1101 Report Impression - Status: SIGNED Entered: 08/28/2022 1120 IMPRESSION: Fluoroscopy dosage documentation. See also separ ate procedure notes. Impression By: [email or web address] - Bishop Atkins M.D. Laboratory Tests: 08/27 08/27 08/27 08/27 1728 1147 0824 0533 Chemistry Sodium (134 - 147 mEq/L) 137 Potassium (3.4 - 5.0 mEq/L) 5.3 H Chloride (100 - 108 mEq/L) 110 H Carbon Dioxide (21 - 33 mEq/l) 20 L Anion Gap (0 - 20) 12 BUN (7 - 18 mg/dL) 33 H Creatinine (0.6 - 1.3 mg/dL) 1.2 Glomerular Filtr Rate (90 - 95) 70.1 L Glucose (70 - 110 mg/dL) 285 H POC Glucose (70 - 110 MG/DL) 148 H 244 H 294 H Calcium (8.0 - 10.5 mg/dL) 7.2 L Phosphorus (2.5 - 4.9 MG/DL) 5.4 H Magnesium (1.80 - 2.40 mg/dL) 1.94 Total Bilirubin (0.0 - 1.0 mg/dL) 0.40 AST (15 - 37 IUnit/L) 12 L ALT (30 - 65 IUnit/L) 9 L Total Alk Phosphatase (20 - 125 IUnit/L) 111 Total Protein (6.4 - 8.2 g/dL) 5.7 L Albumin (3.4 - 5.0 g/dL) 1.30 L 08/27 08/26 0418 2041 Chemistry POC Glucose (70 - 110 MG/DL) 148 H Ionized Calcium Mitzi (1.09 - 1.30 MMOL/L) 1.08 L Hematology WBC (4.5 - 11.0 x10 3/uL) 15.9 H RBC (4.00 - 5.60 x10 6/uL) 3.07 L Hgb (12.5 - 16.9 g/dL) 8.6 L Hct (37.5 - 50.7 %) 25.9 L MCV (81.0 - 99.0 fL) 84.4 MCH (27.0 - 33.0 pg) 28.0 MCHC (33.0 - 37.0 g/dL) 33.2 RDW (11.5 - 14.5 %) 14.6 H Plt Count (150 - 400 x10 3/uL) 250 MPV (7.0 - 9.0 fL) 9.8 H Neut % (Auto) (56.0 - 77.0 %) 88.7 H Lymph % (Auto) (14.0 - 32.0 %) 7.0 L Boundary % (Auto) (4.8 - 9.0 %) 3.3 L Eos % (Auto) (0.3 - 3.7 %) 0.3 Baso % (Auto) (0.0 - 2.0 %) 0.1 Neut # (Auto) (2.0 - 7.6 x10 3/uL) 14.14 H Lymph # (Auto) (1.0 - 3.8 x10 3/uL) 1.11 Boundary # (Auto) (0.1 - 0.8 x10 3/uL) 0.52 Eos # (Auto) (0.0 - 0.2 x10 3/uL) 0.04 Baso # (Auto) (0.0 - 0.2 x10 3/uL) 0.02 Abs Immat Gran (auto) (0.00 - 0.03 x10 3/uL) 0. 10 H Add Manual Diff NO Immature Gran % (0.0 - 2.0 %) 0.6 Nucleated RBC % (0 - 0 %) 0.0 Nucleated RBCs # (Man) (0.0 - 0.1 x10 3/uL) 0.0 0 Microbiology: Date/Time Procedure - Status Source Growth 08/26 2216 Wound Culture - RES ABSCESS GRAM NEGATIVE JAKOB 08/26 2216 Anaerobic Culture - RES ABSCESS 08/26 2216 Gram Stain - RES ABSCESS Laboratory Tests: 08/26 08/26 08/25 0906 0430 2007 Chemistry Sodium (134 - 147 mEq/L) 136 Potassium (3.4 - 5.0 mEq/L) 4.8 Chloride (100 - 108 mEq/L) 109 H Carbon Dioxide (21 - 33 mEq/l) 21 Anion Gap (0 - 20) 11 BUN (7 - 18 mg/dL) 32 H Creatinine (0.6 - 1.3 mg/dL) 1.1 Glomerular Filtr Rate (90 - 95) 77.8 L Glucose (70 - 110 mg/dL) 151 H POC Glucose (70 - 110 MG/DL) 163 H 113 H Calcium (8.0 - 10.5 mg/dL) 7.7 L Ionized Calcium Mitzi (1.09 - 1.30 MMOL/L) 1.11 Phosphorus (2.5 - 4.9 MG/DL) 4.6 Magnesium (1.80 - 2.40 mg/dL) 1.89 Total Bilirubin (0.0 - 1.0 mg/dL) 0.50 AST (15 - 37 IUnit/L) 19 ALT (30 - 65 IUnit/L) 11 L Total Alk Phosphatase (20 - 125 IUnit/L) 149 H Total Protein (6.4 - 8.2 g/dL) 5.5 L Albumin (3.4 - 5.0 g/dL) 1.30 L Hematology WBC (4.5 - 11.0 x10 3/uL) 17.7 H RBC (4.00 - 5.60 x10 6/uL) 2.44 L Hgb (12.5 - 16.9 g/dL) 6.7 L Hct (37.5 - 50.7 %) 20.4 L MCV (81.0 - 99.0 fL) 83.6 MCH (27.0 - 33.0 pg) 27.5 MCHC (33.0 - 37.0 g/dL) 32.8 L RDW (11.5 - 14.5 %) 14.7 H Plt Count (150 - 400 x10 3/uL) 253 MPV (7.0 - 9.0 fL) 9.9 H Neut % (Auto) (56.0 - 77.0 %) 87.5 H Lymph % (Auto) (14.0 - 32.0 %) 7.4 L Boundary % (Auto) (4.8 - 9.0 %) 3.9 L Eos % (Auto) (0.3 - 3.7 %) 0.5 Baso % (Auto) (0.0 - 2.0 %) 0.1 Neut # (Auto) (2.0 - 7.6 x10 3/uL) 15.49 H Lymph # (Auto) (1.0 - 3.8 x10 3/uL) 1.31 Boundary # (Auto) (0.1 - 0.8 x10 3/uL) 0.69 Eos # (Auto) (0.0 - 0.2 x10 3/uL) 0.08 Baso # (Auto) (0.0 - 0.2 x10 3/uL) 0.01 Abs Immat Gran (auto) (0.00 - 0.03 x10 3/uL) 0. 11 H Add Manual Diff NO Immature Gran % (0.0 - 2.0 %) 0.6 Nucleated RBC % (0 - 0 %) 0.0 Nucleated RBCs # (Man) (0.0 - 0.1 x10 3/uL) 0.0 0 Laboratory Tests: 08/25 08/25 08/25 08/25 1723 1111 1044 1044 Chemistry Potassium (3.4 - 5.0 mEq/L) 4.5 POC Glucose (70 - 110 MG/DL) 132 H 143 H Total Creatine Kinase (46 - 171 Units/L) 17 L Urines Urine Color (YEL/STRAW) YELLOW Urine Appearance (CLEAR) TURBID H Urine pH (5.0 - 7.0) 5.0 Ur Specific [place] (1.005 - 1.030) 1.012 Urine Protein (NEGATIVE) 2+ H Urine Glucose (UA) (NEGATIVE) NEGATIVE Urine Ketones (NEGATIVE) NEGATIVE Urine Blood (NEGATIVE) 2+ H Urine Nitrite (NEGATIVE) NEGATIVE Urine Bilirubin (NEGATIVE) NEGATIVE Urine Urobilinogen (0.2 - 1.0 mg/dL) 0.2 Ur Leukocyte Esterase (NEGATIVE) 3+ H Urine RBC (0 - 3 RBC/HPF) 21-50 Urine WBC (0 - 3 WBC/HPF) >50 H Ur Squamous Epith Cells (NONE SEEN /HPF) NONE S EEN Ur Transition Epith Cell (NONE SEEN /HPF) 3+ H Urine Bacteria (NONE SEEN /HPF) TRACE Urine Mucus (NONE SEEN /LPF) TRACE 08/25 08/25 08/24 0750 0744 2130 Chemistry Sodium (134 - 147 mEq/L) 135 Potassium (3.4 - 5.0 mEq/L) 5.4 H Chloride (100 - 108 mEq/L) 110 H Carbon Dioxide (21 - 33 mEq/l) 19 L Anion Gap (0 - 20) 11 BUN (7 - 18 mg/dL) 25 H Creatinine (0.6 - 1.3 mg/dL) 1.1 Glomerular Filtr Rate (90 - 95) 77.8 L Glucose (70 - 110 mg/dL) 162 H POC Glucose (70 - 110 MG/DL) 166 H 140 H Calcium (8.0 - 10.5 mg/dL) 7.3 L Ionized Calcium Mitzi (1.09 - 1.30 MMOL/L) 0.96 L Phosphorus (2.5 - 4.9 MG/DL) 4.5 Magnesium (1.80 - 2.40 mg/dL) 1.88 Total Bilirubin (0.0 - 1.0 mg/dL) 0.50 AST (15 - 37 IUnit/L) 40 H ALT (30 - 65 IUnit/L) 21 L Total Alk Phosphatase (20 - 125 IUnit/L) 159 H Total Protein (6.4 - 8.2 g/dL) 5.6 L Albumin (3.4 - 5.0 g/dL) 1.30 L Hematology WBC (4.5 - 11.0 x10 3/uL) 17.9 H RBC (4.00 - 5.60 x10 6/uL) 2.64 L Hgb (12.5 - 16.9 g/dL) 7.3 L Hct (37.5 - 50.7 %) 22.6 L MCV (81.0 - 99.0 fL) 85.6 MCH (27.0 - 33.0 pg) 27.7 MCHC (33.0 - 37.0 g/dL) 32.3 L RDW (11.5 - 14.5 %) 15.1 H Plt Count (150 - 400 x10 3/uL) 226 MPV (7.0 - 9.0 fL) 10.7 H Neut % (Auto) (56.0 - 77.0 %) 86.3 H Lymph % (Auto) (14.0 - 32.0 %) 8.1 L Boundary % (Auto) (4.8 - 9.0 %) 4.3 L Eos % (Auto) (0.3 - 3.7 %) 0.5 Baso % (Auto) (0.0 - 2.0 %) 0.1 Neut # (Auto) (2.0 - 7.6 x10 3/uL) 15.44 H Lymph # (Auto) (1.0 - 3.8 x10 3/uL) 1.45 Boundary # (Auto) (0.1 - 0.8 x10 3/uL) 0.77 Eos # (Auto) (0.0 - 0.2 x10 3/uL) 0.09 Baso # (Auto) (0.0 - 0.2 x10 3/uL) 0.02 Abs Immat Gran (auto) (0.00 - 0.03 x10 3/uL) 0. 13 H Add Manual Diff NO Immature Gran % (0.0 - 2.0 %) 0.7 Nucleated RBC % (0 - 0 %) 0.0 Nucleated RBCs # (Man) (0.0 - 0.1 x10 3/uL) 0.0 0 Microbiology: Date/Time Procedure - Status Source Growth 08/25 104 Urine Culture - WKST URINE 08/25 104 Blood Culture - RECD BLOOD 08/26 1043 Blood Culture - RECD BLOOD Laboratory Tests: 08/20 08/20 08/20 08/20 08/20 1107 0756 0647 0554 0454 Chemistry Sodium (134 - 147 mEq/L) 137 Potassium (3.4 - 5.0 mEq/L) 3.7 Chloride (100 - 108 mEq/L) 107 Carbon Dioxide (21 - 33 mEq/l) 20 L Anion Gap (0 - 20) 14 BUN (7 - 18 mg/dL) 44 H Creatinine (0.6 - 1.3 mg/dL) 1.2 Glomerular Filtr Rate (90 - 95) 70.1 L Glucose (70 - 110 mg/dL) 212 H POC Glucose (70 - 110 MG/DL) 173 H 192 H 206 H 198 H Calcium (8.0 - 10.5 mg/dL) 7.3 L Ionized Calcium Mitzi (1.09 - 1.30 MMOL/L) 1.04 L Phosphorus (2.5 - 4.9 MG/DL) 3.4 Magnesium (1.80 - 2.40 mg/dL) 2.05 Total Bilirubin (0.0 - 1.0 mg/dL) 0.60 AST (15 - 37 IUnit/L) 51 H ALT (30 - 65 IUnit/L) 22 L Total Alk Phosphatase (20 - 125 IUnit/L) 178 H Total Protein (6.4 - 8.2 g/dL) 5.7 L Albumin (3.4 - 5.0 g/dL) 2.00 L Hematology WBC (4.5 - 11.0 x10 3/uL) 22.8 H RBC (4.00 - 5.60 x10 6/uL) 2.63 L Hgb (12.5 - 16.9 g/dL) 7.1 L Hct (37.5 - 50.7 %) 21.3 L MCV (81.0 - 99.0 fL) 81.0 MCH (27.0 - 33.0 pg) 27.0 MCHC (33.0 - 37.0 g/dL) 33.3 RDW (11.5 - 14.5 %) 14.7 H Plt Count (150 - 400 x10 3/uL) 190 MPV (7.0 - 9.0 fL) 10.0 H Neut % (Auto) (56.0 - 77.0 %) 87.2 H Lymph % (Auto) (14.0 - 32.0 %) 4.8 L Boundary % (Auto) (4.8 - 9.0 %) 2.9 L Eos % (Auto) (0.3 - 3.7 %) 0.0 L Baso % (Auto) (0.0 - 2.0 %) 0.2 Neut # (Auto) (2.0 - 7.6 x10 3/uL) 19.90 H Lymph # (Auto) (1.0 - 3.8 x10 3/uL) 1.10 Boundary # (Auto) (0.1 - 0.8 x10 3/uL) 0.66 Eos # (Auto) (0.0 - 0.2 x10 3/uL) 0.00 Baso # (Auto) (0.0 - 0.2 x10 3/uL) 0.04 Abs Immat Gran (auto) (0.00 - 0.03 1.12 H x10 3/uL) Add Manual Diff NO Immature Gran % (0.0 - 2.0 %) 4.9 H Nucleated RBC % (0 - 0 %) 0.0 Nucleated RBCs # (Man) (0.0 - 0.1 0.00 x10 3/uL) 08/20 2352 2322 2310 Chemistry Sodium (134 - 147 mEq/L) 132 L Potassium (3.4 - 5.0 mEq/L) 3.7 Chloride (100 - 108 mEq/L) 107 Carbon Dioxide (21 - 33 mEq/l) 21 Anion Gap (0 - 20) 8 BUN (7 - 18 mg/dL) 41 H Creatinine (0.6 - 1.3 mg/dL) 1.2 Glomerular Filtr Rate (90 - 95) 70.1 L Glucose (70 - 110 mg/dL) 184 H POC Glucose (70 - 110 MG/DL) 195 H 181 H 182 H 191 H Calcium (8.0 - 10.5 mg/dL) 7.1 L Phosphorus (2.5 - 4.9 MG/DL) 3.3 Magnesium (1.80 - 2.40 mg/dL) 2.09 Albumin (3.4 - 5.0 g/dL) 1.70 L Hematology Hgb (12.5 - 16.9 g/dL) 7.0 L Hct (37.5 - 50.7 %) 21.8 L 08/19 165 Chemistry Sodium (134 - 147 mEq/L) 133 L Potassium (3.4 - 5.0 mEq/L) 3.6 Chloride (100 - 108 mEq/L) 105 Carbon Dioxide (21 - 33 mEq/l) 21 Anion Gap (0 - 20) 10 BUN (7 - 18 mg/dL) 45 H Creatinine (0.6 - 1.3 mg/dL) 1.2 Glomerular Filtr Rate (90 - 95) 70.1 L Glucose (70 - 110 mg/dL) 247 H POC Glucose (70 - 110 MG/DL) 165 H 209 H 218 H 219 H Calcium (8.0 - 10.5 mg/dL) 7.6 L Phosphorus (2.5 - 4.9 MG/DL) 3.0 Magnesium (1.80 - 2.40 mg/dL) 2.03 Albumin (3.4 - 5.0 g/dL) 1.40 L Hematology WBC (4.5 - 11.0 x10 3/uL) 20.3 H RBC (4.00 - 5.60 x10 6/uL) 2.57 L Hgb (12.5 - 16.9 g/dL) 7.1 L Hct (37.5 - 50.7 %) 20.9 L MCV (81.0 - 99.0 fL) 81.3 MCH (27.0 - 33.0 pg) 27.6 MCHC (33.0 - 37.0 g/dL) 34.0 RDW (11.5 - 14.5 %) 14.3 Plt Count (150 - 400 x10 3/uL) 197 MPV (7.0 - 9.0 fL) 10.2 H Neut % (Auto) (56.0 - 77.0 %) 88.7 H Lymph % (Auto) (14.0 - 32.0 %) 3.8 L Boundary % (Auto) (4.8 - 9.0 %) 3.7 L Eos % (Auto) (0.3 - 3.7 %) 0.0 L Baso % (Auto) (0.0 - 2.0 %) 0.3 Neut # (Auto) (2.0 - 7.6 x10 3/uL) 17.97 H Lymph # (Auto) (1.0 - 3.8 x10 3/uL) 0.76 L Boundary # (Auto) (0.1 - 0.8 x10 3/uL) 0.74 Eos # (Auto) (0.0 - 0.2 x10 3/uL) 0.00 Baso # (Auto) (0.0 - 0.2 x10 3/uL) 0.07 Abs Immat Gran (auto) (0.00 - 0.03 0.71 H x10 3/uL) Add Manual Diff NO Immature Gran % (0.0 - 2.0 %) 3.5 H Nucleated RBC % (0 - 0 %) 0.0 Nucleated RBCs # (Man) (0.0 - 0.1 0.00 x10 3/uL) 08/19 08/19 1622 1601 Chemistry POC Glucose (70 - 110 MG/DL) 232 H Urines Urine Color (YEL/STRAW) YELLOW Urine Appearance (CLEAR) SL CLOUDY Urine pH (5.0 - 7.0) 5.0 Ur Specific [place] (1.005 - 1.030) 1.013 Urine Protein (NEGATIVE) 1+ H Urine Glucose (UA) (NEGATIVE) 3+ H Urine Ketones (NEGATIVE) NEGATIVE Urine Blood (NEGATIVE) 2+ H Urine Nitrite (NEGATIVE) NEGATIVE Urine Bilirubin (NEGATIVE) NEGATIVE Urine Urobilinogen (0.2 - 1.0 mg/dL) 0.2 Ur Leukocyte Esterase (NEGATIVE) 3+ H Urine RBC (0 - 3 RBC/HPF) 4-10 Urine WBC (0 - 3 WBC/HPF) 21-50 H Ur Squamous Epith Cells (NONE SEEN /HPF) 0-5 Urine Bacteria (NONE SEEN /HPF) TRACE Urine Mucus (NONE SEEN /LPF) TRACE Microbiology: Date/Time Procedure - Status Source Growth 08/20 1457 Blood Culture - ORD BLOOD 08/20 1458 Blood Culture - ORD BLOOD 08/19 1709 Blood Culture - ORD BLOOD 08/19 1709 Blood Culture - ORD BLOOD 08/19 1622 Urine Culture - RES URINE Laboratory Tests: 08/19 08/19 08/19 08/19 08/19 1338 1335 1233 1115 1115 Chemistry Sodium (134 - 147 mEq/L) 130 L Potassium (3.4 - 5.0 mEq/L) 3.6 Chloride (100 - 108 mEq/L) 107 Carbon Dioxide (21 - 33 mEq/l) 22 Anion Gap (0 - 20) 5 BUN (7 - 18 mg/dL) 39 H Creatinine (0.6 - 1.3 mg/dL) 1.1 Glomerular Filtr Rate (90 - 95) 77.8 L Glucose (70 - 110 mg/dL) 315 H POC Glucose (70 - 110 MG/DL) 340 H 363 H 326 H Calcium (8.0 - 10.5 mg/dL) 7.6 L Phosphorus (2.5 - 4.9 MG/DL) 2.2 L Magnesium (1.80 - 2.40 mg/dL) 2.06 B-Natriuretic Peptide (0 - 100 PG/ML) 96.0 Albumin (3.4 - 5.0 g/dL) 1.50 L 08/19 08/19 08/19 08/19 0805 0737 0737 0445 Chemistry Sodium (134 - 147 mEq/L) 130 L 130 L Potassium (3.4 - 5.0 mEq/L) 3.3 L 3.0 L Chloride (100 - 108 mEq/L) 103 102 Carbon Dioxide (21 - 33 mEq/l) 20 L 22 Anion Gap (0 - 20) 10 10 BUN (7 - 18 mg/dL) 42 H 43 H Creatinine (0.6 - 1.3 mg/dL) 1.2 1.3 Glomerular Filtr Rate (90 - 95) 70.1 L 63.7 L Glucose (70 - 110 mg/dL) 322 H 359 H POC Glucose (70 - 110 MG/DL) 292 H Calcium (8.0 - 10.5 mg/dL) 8.2 7.7 L Phosphorus (2.5 - 4.9 MG/DL) 2.6 2.9 Magnesium (1.80 - 2.40 mg/dL) 2.13 2.13 Iron (35 - 150 mcg/dL) 8 L TIBC (260 - 445 mcg/dL) 148 L % Saturation (14 - 34 %) 5.4 L Unsat Iron Binding (mcg/dL) 140 Ferritin (23.9 - 336.2 ng/mL) 2429.2 H Total Bilirubin (0.0 - 1.0 mg/dL) 0.60 AST (15 - 37 IUnit/L) 27 ALT (30 - 65 IUnit/L) 13 L Total Alk Phosphatase (20 - 125 IUnit/L) 150 H Total Protein (6.4 - 8.2 g/dL) 5.6 L Albumin (3.4 - 5.0 g/dL) 1.60 L 1.50 L Vitamin B12 (193 - 986 pg/mL) 5883 H Folate (3.1 - 17.5 ng/mL) 9.5 08/19 08/19 08/19 08/19 0340 0332 0330 0101 Chemistry POC Glucose (70 - 110 MG/DL) 332 H 296 H Hemoglobin A1c (4.8 - 6.0 %A1C) > 14.0 H Ionized Calcium Mitzi (1.09 - 1.30 MMOL/L) 1.07 L Hematology WBC (4.5 - 11.0 x10 3/uL) 21.3 H RBC (4.00 - 5.60 x10 6/uL) 2.80 L Hgb (12.5 - 16.9 g/dL) 7.6 L Hct (37.5 - 50.7 %) 22.3 L MCV (81.0 - 99.0 fL) 79.6 L MCH (27.0 - 33.0 pg) 27.1 MCHC (33.0 - 37.0 g/dL) 34.1 RDW (11.5 - 14.5 %) 14.0 Plt Count (150 - 400 x10 3/uL) 227 MPV (7.0 - 9.0 fL) 9.9 H Neut % (Auto) (56.0 - 77.0 %) 89.9 H Lymph % (Auto) (14.0 - 32.0 %) 4.3 L Boundary % (Auto) (4.8 - 9.0 %) 3.1 L Eos % (Auto) (0.3 - 3.7 %) 0.0 L Baso % (Auto) (0.0 - 2.0 %) 0.3 Neut # (Auto) (2.0 - 7.6 x10 3/uL) 19.17 H Lymph # (Auto) (1.0 - 3.8 x10 3/uL) 0.91 L Boundary # (Auto) (0.1 - 0.8 x10 3/uL) 0.67 Eos # (Auto) (0.0 - 0.2 x10 3/uL) 0.01 Baso # (Auto) (0.0 - 0.2 x10 3/uL) 0.07 Abs Immat Gran (auto) (0.00 - 0.03 x10 3/uL) 0. 51 H Add Manual Diff NO Immature Gran % (0.0 - 2.0 %) 2.4 H Nucleated RBC % (0 - 0 %) 0.0 Nucleated RBCs # (Man) (0.0 - 0.1 x10 3/uL) 0.0 0 08/18 08/18 08/18 08/18 2246 2157 1854 1653 Chemistry Sodium (134 - 147 mEq/L) 129 L Potassium (3.4 - 5.0 mEq/L) 3.3 L Chloride (100 - 108 mEq/L) 102 Carbon Dioxide (21 - 33 mEq/l) 20 L Anion Gap (0 - 20) 10 BUN (7 - 18 mg/dL) 44 H Creatinine (0.6 - 1.3 mg/dL) 1.3 Glomerular Filtr Rate (90 - 95) 63.7 L Glucose (70 - 110 mg/dL) 296 H POC Glucose (70 - 110 MG/DL) 265 H 226 H 223 H Calcium (8.0 - 10.5 mg/dL) 7.7 L Phosphorus (2.5 - 4.9 MG/DL) 2.8 Magnesium (1.80 - 2.40 mg/dL) 2.13 Albumin (3.4 - 5.0 g/dL) 1.70 L Microbiology: Date/Time Procedure - Status Source Growth 08/19 1210 Wound Culture - RES ABSCESS 08/19 121 Anaerobic Culture - RES ABSCESS 08/19 1210 Gram Stain - RES ABSCESS Recent Impressions: ULTRASOUND - [facility] [employer] UNI/LTD 08/19 0950 Report Impression - Status: SIGNED Entered: 08/19/2022 1056 IMPRESSION: No sonographic evidence for flow-limiting stenos is in the right lower extremity arterial system. Impression By: [email or web address] - Abraham Ross M.D. Laboratory Tests: 08/18 08/18 08/18 08/18 08/18 1430 1430 1404 1309 1203 Chemistry Sodium (134 - 147 mEq/L) 131 L Potassium (3.4 - 5.0 mEq/L) 3.4 Chloride (100 - 108 mEq/L) 101 Carbon Dioxide (21 - 33 mEq/l) 24 Anion Gap (0 - 20) 9 BUN (7 - 18 mg/dL) 58 H Creatinine (0.6 - 1.3 mg/dL) 1.4 H Glomerular Filtr Rate (90 - 95) 58.3 L Glucose (70 - 110 mg/dL) 207 H POC Glucose (70 - 110 MG/DL) 195 H 213 H 201 H Calcium (8.0 - 10.5 mg/dL) 7.8 L Phosphorus (2.5 - 4.9 MG/DL) 2.2 L Magnesium (1.80 - 2.40 mg/dL) 2.09 Albumin (3.4 - 5.0 g/dL) 1.60 L Triglycerides (40 - 150 mg/dL) 161 H Cholesterol (<200 mg/dL) 90 LDL Cholesterol [place] (0 - 100 mg/dL) 33.0 HDL Cholesterol (32 - 72 mg/dL) < 20.0 L Cholesterol/HDL Ratio (3.43 - 4.97 4.00 RATIO) TSH (0.42 - 5.47) 0.96 Free T4 (0.77 - 1.61 ng/dL) 0.7 L 08/18 08/18 08/18 08/18 08/18 1107 1004 0900 0823 0549 Chemistry POC Glucose (70 - 110 MG/DL) 223 H 304 H 405 H 449 H Hemoglobin A1c (4.8 - 6.0 %A1C) 13.4 H 08/18 08/18 08/18 0549 0305 0207 Blood Gas Puncture Site R Radial O2 Saturation (90 - 100 %) 97.9 ABG pH (7.35 - 7.45) 7.309 L ABG pCO2 (35.0 - 45 mmHg) 22.3 *L ABG pO2 (80 - 100.0 mmHg) 108.0 H ABG PO2/FiO2 Ratio (mm/Hg) 514.28 ABG HCO3 (22.0 - 26.0 MMOL/L) 11.2 *L ABG Total CO2 11.9 ABG Base Excess (-4.0 - 4.0 MMOL/L) -15.1 L Neto Test Positive O2 Delivery Device Room Air FiO2 (%) 21 Chemistry Sodium (134 - 147 mEq/L) 121 *L Potassium (3.4 - 5.0 mEq/L) 4.1 Chloride (100 - 108 mEq/L) 90 L Carbon Dioxide (21 - 33 mEq/l) 15 L Anion Gap (0 - 20) 20 BUN (7 - 18 mg/dL) 62 H Creatinine (0.6 - 1.3 mg/dL) 1.7 H Glomerular Filtr Rate (90 - 95) 46.2 L Glucose (70 - 110 mg/dL) 692 *H Calcium (8.0 - 10.5 mg/dL) 7.5 L Phosphorus (2.5 - 4.9 MG/DL) 4.8 Magnesium (1.80 - 2.40 mg/dL) 2.34 Albumin (3.4 - 5.0 g/dL) 1.60 L Serology Influenza Type A (PCR) (Negative) Negative Influenza Type B (PCR) (Negative) Negative Toxicology Acetone, Quant (Neg - <20 mg/dL) Large - 80-100 mg/dL 08/18 08/18 08/18 0205 0203 0203 Chemistry Sodium (134 - 147 mEq/L) 115 *L Potassium (3.4 - 5.0 mEq/L) 4.4 Chloride (100 - 108 mEq/L) 84 L Carbon Dioxide (21 - 33 mEq/l) 14 L Anion Gap (0 - 20) 21 H BUN (7 - 18 mg/dL) 60 H Creatinine (0.6 - 1.3 mg/dL) 1.9 H Glomerular Filtr Rate (90 - 95) 40.4 L Glucose (70 - 110 mg/dL) 709 *H Lactic Acid (0.4 - 1.9 mmol/L) 1.2 Calcium (8.0 - 10.5 mg/dL) 8.5 Total Bilirubin (0.0 - 1.0 mg/dL) 0.40 Direct Bilirubin (0.0 - 0.30 MG/DL) 0.20 Indirect Bilirubin (MG/DL) 0.20 AST (15 - 37 IUnit/L) 14 L ALT (30 - 65 IUnit/L) 10 L Total Alk Phosphatase (20 - 125 IUnit/L) 157 H Troponin I High Sens (0 - 54 ng/L) 4 Total Protein (6.4 - 8.2 g/dL) 6.4 Albumin (3.4 - 5.0 g/dL) 1.80 L Lipase (13 - 57 U/L) 24 Hematology WBC (4.5 - 11.0 x10 3/uL) 26.5 H RBC (4.00 - 5.60 x10 6/uL) 3.36 L Hgb (12.5 - 16.9 g/dL) 9.0 L Hct (37.5 - 50.7 %) 28.3 L MCV (81.0 - 99.0 fL) 84.2 MCH (27.0 - 33.0 pg) 26.8 L MCHC (33.0 - 37.0 g/dL) 31.8 L RDW (11.5 - 14.5 %) 14.5 Plt Count (150 - 400 x10 3/uL) 355 MPV (7.0 - 9.0 fL) 9.9 H Add Manual Diff YES Seg Neutrophils % (37 - 69 %) 70.0 H Band Neutrophils % (0.0 - 10.0 %) 12.7 H Lymphocytes % (Manual) (23 - 55 %) 3.7 L Monocytes % (Manual) (0 - 10 %) 9.1 Metamyelocytes (0.0 - 0.0 %) 2.7 H Myelocytes (0.0 - 0.0 %) 0.9 H Promyelocytes (0 - 0 %) 0.9 H Platelet Estimate (ADEQUATE THOUSAND) Adequate Plt Morphology Comment NORMAL Polychromasia 3+ Poikilocytosis 3+ Anisocytosis 1+ Macrocytosis 1+ Serology SARS-CoV-2 Ag (Rapid) (Negative) Negative Toxicology Salicylates (0.0 - 20.0 mg/dL) 5.6 Microbiology: Date/Time Procedure - Status Source Growth 08/18 0915 Wound Culture - ORD FOOT 08/18 0207 Wound Culture - RECD FOOT 08/18 0207 Group A Streptococcus Screen (VERONICA) - COMP THROAT 08/18 0207 Streptococcus Culture - COMP THROAT 08/18 0203 Blood Culture - RES BLOOD 08/18 0203 Blood Culture Gram Stain - RES BLOOD 08/18 0203 Blood Culture - RES BLOOD 08/18 0203 Blood Culture Gram Stain - RES BLOOD Recent Impressions: RADIOLOGY - XR CHEST 2 V 08/18 0201 Report Impression - Status: SIGNED Entered: 08/18/2022 0317 IMPRESSION: Ill-defined somewhat nodular opacity measuring 3 .2 cm laterally in the right mid lung suspicious for rounded pneumo ro given provided history, but underlying neoplasm can not be excl uded. Followup radiographs are recommended after appropriate tr eatment in order to document complete resolution and exclude an unde rlying process or neoplasm. Impression By: [email or web address] - Dom Adams M.D. RADIOLOGY - XR FOOT 3 + V RT 08/18 0238 Report Impression - Status: SIGNED Entered: 08/18/2022 0358 IMPRESSION: No acute osseous findings. No convincing evidenc e for osteomyelitis. MRI is more sensitive for detecti ng osteomyelitis. Impression By: Ankur Ladd M.D. CAT SCAN - CT ABD PELVIS W/CONT 08/18 0339 Report Impression - Status: SIGNED Entered: 08/18/2022 0546 IMPRESSION: 3.3 cm hypodensity in the left posterior prostat e or seminal vesicle. This could represent an abscess. Contra st-enhanced MRI of the pelvis would be helpful for further evaluati on. No acute intra-abdominal findings otherwise. Impression By: Ankur Ladd M.D. CAT SCAN - CT LOWER EXTRM W/O C RT 08/18 0645 Report Impression - Status: SIGNED Entered: 08/18/2022 08 IMPRESSION: Extensive soft tissue edema with mottled gas in the subcutaneous and intramuscular compartments of the foot abhishek tible with gas-forming infection. Disease extends into the visualized distal leg. Impression By: Jamel Dorantes M.D. 1. Diabetes mellitus type 2 uncontrolled with co mplications. 2. DKA 3. Cellulitis and gangrene of the right foot. 4. Sepsis 5. Altered mental status 6. High LFTs Blood sugar 167-107 mg/dL. HbA1c 13.4% White count 17.9 Sodium 121. Adjust insulin dose. Wound care and IV antibiotics. For wound debridement. Electronically Signed by Braxton Chapin MD on 11/14 at 1746 RPT #:[id number] END OF REPORT 2022-08-28 14:47:00-00:00 [facility]) Podiatry Progress Note REPORT#:[id number] REPORT STATUS: Signed DATE:08/28/22 TIME: 1447 PATIENT: KARMA ROWLAND UNIT #: [id number] ROOM/BED: [facility]25-1 : 63 AGE: 56 SEX: M ATTEND: Mikayla Ramires MD ADM AUTHOR: Reyhani,Liam X DPM * ALL edits or amendments must be made on the [employer]/computer document * Subjective Chief complaint: seen at bedside,. family memebers next to him denies having any pain foot covered and protected and offloaded drainage noted serosang. increased warmth Patient reports: no confusion, no cough, no fati jenifer, no heartburn Objective General VS: Last Documented: Result Date Time Pulse Ox 97 08/28 1330 B/P 131/61 08/28 1330 B/P Mean 88 08/28 1330 Pulse 84 08/28 1330 Temp 36.9 08/28 1300 O2 Delivery Room air 08/28 1235 Resp 11 08/28 1235 O2 Flow Rate 7 08/28 1222 PATIENT WEIGHT: Weight (lb): 165 Weight (oz): 2.02 Weight (kg): 74.900 Medications: Active Meds + DC'd Last 24 Hrs Cefazolin Sodium (KEFZOL OR ANCEF) 1 GM Q8H IV Sodium Chloride (SODIUM CHLORIDE) 10 ML Fentanyl Citrate (SUBLIMAZE) 0 .STK-MED ONE .ROU TE (DC) Norepinephrine Bitartrate (LEVOPHED BITARTATE) 0 .STK-MED ONE IV (DC) Phenylephrine HCl (YENNY-SYNEPHRINE 10MG/ML AMP) 0 .STK-MED ONE .ROUTE (DC ) Diphenhydramine HCl (BENADRYL) 12.5 MG PACU ONCE PRN IV (DC) Fentanyl Citrate (SUBLIMAZE) 100 MCG PACU Q10MIN PRN PRN IV (DC) Fentanyl Citrate (SUBLIMAZE) 50 MCG PACU Q10MIN PRN PRN IV (DC) Hydralazine HCl (APRESOLINE) 5 MG PACU Q10MIN NV N PRN IV (DC) Hydrocodone Bitart/Acetaminophen (NORCO 5/325) 1 TAB PACU ONCE PO (DC) Hydromorphone HCl (DILAUDID) 1 MG PACU Q10MIN NV N PRN IV (DC) Hydromorphone HCl (DILAUDID) 0.5 MG PACU Q5MIN P RN PRN IV (DC) Insulin Human Lispro (HUMALOG) 0 PACU ONCE PRN S UBQ (DC) Labetalol HCl (LABETALOL HCL) 5 MG PACU Q10MIN P RN PRN IV (DC) Meperidine HCl (MEPERIDINE HCL/PF) 12.5 MG PACU ONCE PRN IV (DC) Morphine Sulfate (morphine SULFATE) 2 MG PACU Q1 0MIN PRN PRN IV (DC) Ondansetron HCl (ZOFRAN) 4 MG PACU ONCE PRN IV ( DC) Promethazine HCl (PHENERGAN) 25 MG PACU ONCE PRN PO (DC) Ropivacaine (NAROPIN 0.5% 150 MG/30mL) 150 MG DIR PRN LOCAL (DC) Tramadol HCl (ULTRAM) 50 MG PACU ONCE PO (DC) Lidocaine HCl (LIDOCAINE HCL/PF) 0 .STK-MED ONE .ROUTE (DC) Ondansetron HCl (ZOFRAN) 0 .STK-MED ONE .ROUTE ( DC) Phenylephrine HCl (YENNY-SYNEPHRINE 10MG/ML AMP) 0 .STK-MED ONE .ROUTE (DC ) Fentanyl Citrate (SUBLIMAZE) 0 .STK-MED ONE .ROU TE (DC) Lidocaine HCl (XYLOCAINE) 0 .STK-MED ONE .ROUTE (DC) Midazolam HCl (VERSED) 0 .STK-MED ONE .ROUTE (DC ) Propofol (DIPRIVAN 200MG/20ML INJECTION) 20 ML . STK-MED ONE IV (DC) Insulin Glargine (Lantus/Semglee) 15 UNIT BEDTIM E SUBQ Acetaminophen (TYLENOL EXTRA STRENGTH) 1,000 MG PREOP ONCALL PO (DC) Gabapentin (NEURONTIN) 200 MG PREOP ONCALL PO (D C) Lactated Ringer's (LACTATED RINGERS) 1,000 ML NV EOP ONCALL IV (DC) Lidocaine HCl (LIDOCAINE HCL/PF) 2 ML PREOP ONCA LL LOCAL (DC) Lidocaine HCl (LIDOCAINE HCL/PF) 2 ML PREOP ONCA LL LOCAL (DC) Sodium Chloride (SODIUM CHLORIDE 0.9%) 500 ML NV EOP ONCALL IV (DC) Sodium Chloride (SODIUM CHLORIDE 0.9%) 500 ML NV EOP ONCALL IV (DC) Sodium Chloride (SODIUM CHLORIDE 0.9%) 1,000 ML PREOP ONCALL IV (DC) Sodium Chloride (SODIUM CHLORIDE) 5 ML ASDIR PRN IV (DC) Sodium Chloride (SODIUM CHLORIDE) 10 ML ASDIR NV N IV (DC) Sodium Chloride (SODIUM CHLORIDE 0.9%) 250 ML DIR PRN IV (DC) Meropenem (MEROPENEM) 500 MG Q6H IV Sterile Water (WATER FOR INJECTION) 10 ML Daptomycin (CUBICIN 500MG) 700 MG Q24H IV (CKD) Sodium Chloride (SODIUM CHLORIDE 0.9%) 50 ML Famotidine (PEPCID) 20 MG BID PO Lorazepam (ATIVAN) 1 MG ONCE PRN IV Sodium Chloride (SODIUM CHLORIDE) 0 ASDIR PRN IV Insulin Glargine (Lantus/Semglee) 25 UNIT BEDTIM E SUBQ (DC) Insulin Human Lispro (HUMALOG) 7 UNIT AC SUBQ Insulin Human Lispro (HUMALOG) 0 AC HS SUBQ Dextrose/Water (DEXTROSE 10% IN WATER) 125 ML DIR PRN IV (CKD) Dextrose/Water (DEXTROSE 10% IN WATER) 250 ML DIR PRN IV (CKD) Glucagon (GLUCAGON) 1 MG ASDIR PRN IM Dextrose/Water (Dextrose 10% 1,000 mL) 1,000 ML ASDIR IV Acetaminophen (TYLENOL) 650 MG Q6H PRN PRN PO Bisacodyl (DULCOLAX) 10 MG DAILY PRN PRN RECTAL Docusate Sodium (COLACE) 100 MG Q12H PRN PRN PO Ondansetron HCl (ZOFRAN) 4 MG Q6H PRN PRN IV Heparin Sodium (HEPARIN 5000 UNITS/ML) 5,000 UNI T Q8HR SUBQ I O: 24 hour I O ending at 0700: 04/06 0700 04/05 1900 Intake Total 79628.00 Output Total 89528 Balance 290.00 Intake, IV 160.00 Intake, Oral 1380 Intake, Other 27397 Number 2 Bowel Movements Output, Other 01584 Patient 74.9 kg Weight Weight Bed scale Measurement Method Dietitian nutrition assessment The data set between the solid lines has been im ported from the dietitian's assessment. BMI Calculated: 26.7 Nutrition related diagnosis: Overweight Nutrition diagnosis details: BMI 25-29.9 Nutrition problem: Increased nutrient needs Nutrition etiology: metabolic demand of wound , healing Nutrition signs and symptoms : recent BKA with need for , arginine and glutamine Nutrition prescription: 1) Recommend Cardiac ADA diet with 5 CHO/meal. 2) Supplement with Chinedu BID. Dietitian name: Judith Smith, DIET Assessment completed: 08/28/22 Physical Exam General appearance: alert, awake, oriented Wound/incision: Location: Right foot to right ankle. DP and PT pulses are very weak essentially nonp alpable. There is severe edema of the right foot to the right ankle, better. There is erythema of the right foot to the righ t ankle, much better. Not really any ascending lymphangitis past ther e. Crepitation is at the medial right hindfoot and the dorsal right midfoot are significantly less. There is no longer crepitation at the lateral r ight ankle. There is some bullae that are peeling medial an d lateral. Sensation is greatly decreased on the right janelle t. base of three wounds fibrotic. sero purulent drainage. bones and tendons exposed. Left foot has no ulcers but has OA changes at a nkle with some chronic edema. LE vascular pulse assess: Nonpalpable R posterior tibialis, Nonpalpable R dorsalis pedis Considered stroke alert: no Results Findings/Data: Laboratory Tests: 08/28 08/28 08/28 08/28 08/27 1302 1218 0624 0420 2049 Chemistry Sodium (134 - 147 mEq/L) 137 Potassium (3.4 - 5.0 mEq/L) 5.0 Chloride (100 - 108 mEq/L) 109 H Carbon Dioxide (21 - 33 mEq/l) 21 Anion Gap (0 - 20) 12 BUN (7 - 18 mg/dL) 30 H Creatinine (0.6 - 1.3 mg/dL) 1.4 H Glomerular Filtr Rate (90 - 95) 58.3 L Glucose (70 - 110 mg/dL) 167 H POC Glucose (70 - 110 MG/DL) 206 H 185 H 180 H 87 Calcium (8.0 - 10.5 mg/dL) 7.7 L Ionized Calcium Mitzi (1.09 - 1.30 MMOL/L) 1.12 Phosphorus (2.5 - 4.9 MG/DL) 4.8 Magnesium (1.80 - 2.40 mg/dL) 1.89 Total Bilirubin (0.0 - 1.0 mg/dL) 0.40 AST (15 - 37 IUnit/L) 17 ALT (30 - 65 IUnit/L) 9 L Total Alk Phosphatase (20 - 125 IUnit/L) 111 Total Protein (6.4 - 8.2 g/dL) 5.8 L Albumin (3.4 - 5.0 g/dL) 1.30 L Hematology WBC (4.5 - 11.0 x10 3/uL) 13.8 H RBC (4.00 - 5.60 x10 6/uL) 2.83 L Hgb (12.5 - 16.9 g/dL) 8.0 L Hct (37.5 - 50.7 %) 24.0 L MCV (81.0 - 99.0 fL) 84.8 MCH (27.0 - 33.0 pg) 28.3 MCHC (33.0 - 37.0 g/dL) 33.3 RDW (11.5 - 14.5 %) 14.6 H Plt Count (150 - 400 x10 3/uL) 244 MPV (7.0 - 9.0 fL) 9.2 H Neut % (Auto) (56.0 - 77.0 %) 86.7 H Lymph % (Auto) (14.0 - 32.0 %) 8.2 L Boundary % (Auto) (4.8 - 9.0 %) 4.1 L Eos % (Auto) (0.3 - 3.7 %) 0.4 Baso % (Auto) (0.0 - 2.0 %) 0.1 Neut # (Auto) (2.0 - 7.6 x10 3/uL) 11.92 H Lymph # (Auto) (1.0 - 3.8 x10 3/uL) 1.13 Boundary # (Auto) (0.1 - 0.8 x10 3/uL) 0.57 Eos # (Auto) (0.0 - 0.2 x10 3/uL) 0.05 Baso # (Auto) (0.0 - 0.2 x10 3/uL) 0.01 Abs Immat Gran (auto) (0.00 - 0.03 0.07 H x10 3/uL) Add Manual Diff NO Immature Gran % (0.0 - 2.0 %) 0.5 Nucleated RBC % (0 - 0 %) 0.0 Nucleated RBCs # (Man) (0.0 - 0.1 0.00 x10 3/uL) 08/27 08/27 1825 1728 Chemistry Sodium (134 - 147 mEq/L) 136 Potassium (3.4 - 5.0 mEq/L) 5.1 H Chloride (100 - 108 mEq/L) 109 H Carbon Dioxide (21 - 33 mEq/l) 20 L Anion Gap (0 - 20) 12 BUN (7 - 18 mg/dL) 30 H Creatinine (0.6 - 1.3 mg/dL) 1.2 Glomerular Filtr Rate (90 - 95) 70.1 L Glucose (70 - 110 mg/dL) 161 H POC Glucose (70 - 110 MG/DL) 148 H Calcium (8.0 - 10.5 mg/dL) 7.5 L Recent Impressions: ULTRASOUND - DUP VEIN UNI/LTD 08/28 0857 Report Impression - Status: SIGNED Entered: 08/28/2022 0927 IMPRESSION: 1. No evidence of venous thrombosis involving le ft lower extremity. 2. Approximately 8 x 2 x 1.3 cm complex fluid co llection along the left upper calf probably representing a smal l hematoma. Impression By: [email or web address] - Hakeem Soto RADIOLOGY - XR FLUOROSCOPY 0-60 MIN 08/28 1101 Report Impression - Status: SIGNED Entered: 08/28/2022 1120 IMPRESSION: Fluoroscopy dosage documentation. See also separ ate procedure notes. Impression By: [email or web address] - Bishop Atkins M.D. 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 IV antibiotics Monitor leukocytosis NIAS: minimal PVD right 08/18 wound culture: MRSA (This one is not accura te, it is of skin that was intact) 08/19 OR culture: MRSA blood cultures: MRSA Offloading boot ICU for now pulse lavage by physical therapy oralia wrap compression left ankle MRI: osteo plan for BKA right with Dr. Leroy today venous u/s left no dvt Electronically Signed by Liam Pedersen DPM on 0 08/28/22 at 1448 RPT #:[id number] END OF REPORT 2022-08-28 14:44:00-00:[address] [facility] ([facility]) Infectious Dis. Progress Note REPORT#:[id number] REPORT STATUS: Signed DATE:08/28/22 TIME: 1444 PATIENT: KARMA ROWLAND UNIT #: [id number] ROOM/BED: [address] : 61 AGE: 56 SEX: M ATTEND: Mikayla Ramires MD ADM AUTHOR: Merry Wolff MD * ALL edits or amendments must be made on the [employer]/computer document * Subjective Chief complaint: Follow-up on MRSA bacteremia, right lower extrem ity necrotizing soft tissue infection. HPI: PT is a 56yr old male with h istory of diabetes mellitus type 2, hypertension who was admitted with altered mental status and righ t-sided foot infection. According to him, he noticed a blister on his right foot around 3 days prior to presentation. His foot got progressively more sw ollen and erythema extended proximally to his lateral foot and ankle. CT abd omen and pelvis with contrast is concerning for possible prostate abscess. CT of lower extremity without contrast shows extensive sof t tissue edema with mottled gas in the subcutaneous and intramuscular compartments of the foot, comp atible with gas-forming infection. Patient's blood cultures have come ba ck positive for MRSA in 2 out of 2 sets. PT has had persistent (+)Ve cx for MR FREITAS 08/18- 08/22. He underwent a debridement of his foot on 08/19 and cx g rew MRSA. PT was started on Vancomycin and clindamycin on 08/18. His MRI showed a prosta te abscess. 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 08/25 PT is afebrile, his WBX is 17.9, he is awake and alert. at the bedside 08/26 plan for transrectal asp iration today and BKA on 08/28, pt is afebrile, WBC is 17.7, blood cx sent on 08/25 still positive, urine cx sent on 08/25 contaminated 08/27 s/p transrectal aspirati on and unroofing of prostate abscess 08/26, aspiration cx growing GNR, pt is afebrile, WBC down to 15.9 from 17.7, 08/28 Pt had right BKA today, afebrile, WBC 13.8 f rom 15.9 Nursing reports: No: agitated, cough, diarrhea, fever. Portions of this section wer e scribed by Jill Quintero on 08/28/22 at 1856 Objective General VS/I O: Vital Signs Date Temp Pulse Resp B/P B/P Mean Pulse Ox FiO2 04/05-08/28 97.5-98.5 80-97 7-25 97-158/54-73 6 9-105 93-100 Last Documented: Result Date Time Pulse Ox 95 04/06 1830 B/P 103/55 04/06 1830 B/P Mean 69 04/06 1830 Pulse 86 04/06 1830 Temp 98.4 04/06 1600 Resp 11 04/06 1253 O2 Delivery Room air / 1235 O2 Flow Rate 7 / 1222 Vital Signs: Date Time Temp Pulse Resp B/P B/P Pulse O2 O2 F low FiO2 Mean Ox Delivery Rate 04/06 1830 86 103/55 69 95 04/06 1800 95 144/65 93 98 04/06 1730 91 152/70 101 98 04/06 1700 90 148/67 96 98 04/06 1630 89 152/72 104 98 04/06 1600 98.4 04/06 1600 88 151/73 105 98 04/06 1530 86 133/65 94 98 04/06 1500 82 144/71 102 98 04/06 1430 83 135/69 97 98 04/06 1400 80 129/63 89 97 04/06 1330 84 131/61 88 97 04/06 1300 98.5 04/06 1300 81 119/58 81 96 04/06 1258 81 125/59 85 97 04/06 1253 82 11 114/57 80 95 04/06 1235 97.5 80 11 108/56 97 Room air 04/06 1230 80 12 97/57 97 04/06 1225 81 12 117/59 96 04/06 1222 7 04/06 1220 80 9 119/56 100 04/06 1215 80 10 117/61 100 04/06 1210 97.5 83 10 114/57 96 Simple 5 mask 04/06 0930 90 19 127/62 89 96 04/06 0900 86 17 124/64 87 96 04/06 0830 90 14 119/58 81 95 04/06 0800 98.4 04/06 0800 87 13 133/63 90 95 04/06 0745 85 15 130/63 90 95 04/06 0730 87 16 102/55 72 97 04/06 0715 87 14 119/60 84 95 04/06 0700 87 10 120/62 85 94 04/06 0645 87 14 115/60 82 94 04/06 0631 86 21 107/54 78 94 04/06 0615 94 25 129/63 91 96 04/06 0600 90 11 124/62 87 95 04/06 0545 90 10 125/62 88 95 04/06 0530 90 14 128/62 89 95 04/06 0515 91 10 125/64 87 95 04/06 0500 89 7 126/66 88 95 04/06 0445 90 12 128/65 89 94 04/06 0430 90 10 131/63 90 94 04/06 0415 89 15 126/61 88 95 04/06 0400 98.2 04/06 0400 136/65 93 95 04/06 0330 92 15 142/67 96 95 04/06 0315 96 25 112/59 81 95 04/06 0300 96 25 123/60 85 95 04/06 0245 97 18 124/58 84 95 04/06 0230 95 22 127/60 86 95 04/06 0201 92 19 123/57 80 04/06 0145 89 20 130/60 86 04/06 0130 87 18 113/58 81 04/06 0115 84 13 115/58 79 94 04/06 0100 85 13 122/60 84 95 04/06 0045 84 13 120/59 83 93 04/06 0030 85 12 117/59 82 93 04/06 0015 85 13 117/60 82 94 04/06 0000 98.0 04/06 0000 85 12 116/58 81 94 04/05 2300 86 19 130/59 88 96 04/05 2245 86 22 135/65 91 95 04/05 2230 88 24 140/65 97 96 04/05 2215 90 19 142/66 95 96 04/05 2200 90 14 128/60 87 96 04/05 5 87 19 129/59 85 95 04/05 0 84 12 122/57 82 94 04/05 2114 85 17 138/66 95 96 04/05 2099 85 13 142/66 95 96 04/05 2044 86 14 154/73 105 97 04/05 2029 86 14 144/66 98 97 04/05 2014 83 11 138/68 95 97 04/05 1999 97.9 04/05 1999 83 10 140/71 100 98 04/05 1945 84 12 140/69 99 97 04/05 1930 85 12 155/73 105 99 04/05 1915 85 14 154/73 105 100 04/05 1900 87 15 158/72 104 93 24 hour I O ending at 0700: 08/28 0700 04/05 1900 Intake Total 24636.00 Output Total 88853 Balance 290.00 Intake, IV 160.00 Intake, Oral 1380 Intake, Other 05633 Number 2 Bowel Movements Output, Other 39137 Patient 74.9 kg Weight Weight Bed scale Measurement Method PATIENT WEIGHT: Weight (lb): 165 Weight (oz): 2.02 Weight (kg): 74.900 Antibiotic start date: Antibiotic: clindamycin Start Date: 08/18-08/25 Antibiotic: Vancomycin Start Date: 08/18-08/25 Antibiotic: daptomycin Start Date:08/25 Antibiotic: Merrem Start Date:08/27 Antibiotic: Teflaro Start Date:08/25-08/27 Physical Exam General appearance: alert, awake, oriented Wound/incision: Location: right foot BKA Head/Eyes: atraumatic, normocephalic Neck: supple/no meningismus, no JVD Cardiovascular: normal heart sounds, regular rat e rhythm, no murmur Respiratory: clear to auscultation, aerating wel l, symmetric expansion Abdomen: non-tender, soft, no distention Genitourinary: urinary catheter ( on CBI) Extremities: edema, right BKA 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, 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 Considered stroke alert: no Skin: lesions, no rash Psychiatry: normal affect, normal mood Results Findings/Data: Laboratory Tests 08/28 08/28 08/28 08/28 08/27 1302 1218 0624 419 2049 Chemistry Sodium (134 - 147 mEq/L) 137 Potassium (3.4 - 5.0 mEq/L) 5.0 Chloride (100 - 108 mEq/L) 109 H Carbon Dioxide (21 - 33 mEq/l) 21 Anion Gap (0 - 20) 12 BUN (7 - 18 mg/dL) 30 H Creatinine (0.6 - 1.3 mg/dL) 1.4 H Glomerular Filtr Rate (90 - 95) 58.3 L Glucose (70 - 110 mg/dL) 167 H POC Glucose (70 - 110 MG/DL) 206 H 185 H 180 H 87 Calcium (8.0 - 10.5 mg/dL) 7.7 L Ionized Calcium Mitzi (1.09 - 1.30 1.12 MMOL/L) Phosphorus (2.5 - 4.9 MG/DL) 4.8 Magnesium (1.80 - 2.40 mg/dL) 1.89 Total Bilirubin (0.0 - 1.0 mg/dL) 0.40 AST (15 - 37 IUnit/L) 17 ALT (30 - 65 IUnit/L) 9 L Total Alk Phosphatase (20 - 125 111 IUnit/L) Total Protein (6.4 - 8.2 g/dL) 5.8 L Albumin (3.4 - 5.0 g/dL) 1.30 L 08/27 08/27 1825 1728 Chemistry Sodium (134 - 147 mEq/L) 136 Potassium (3.4 - 5.0 mEq/L) 5.1 H Chloride (100 - 108 mEq/L) 109 H Carbon Dioxide (21 - 33 mEq/l) 20 L Anion Gap (0 - 20) 12 BUN (7 - 18 mg/dL) 30 H Creatinine (0.6 - 1.3 mg/dL) 1.2 Glomerular Filtr Rate (90 - 95) 70.1 L Glucose (70 - 110 mg/dL) 161 H POC Glucose (70 - 110 MG/DL) 148 H Calcium (8.0 - 10.5 mg/dL) 7.5 L Laboratory Tests 08/29 419 Hematology WBC (4.5 - 11.0 x10 3/uL) 13.8 H RBC (4.00 - 5.60 x10 6/uL) 2.83 L Hgb (12.5 - 16.9 g/dL) 8.0 L Hct (37.5 - 50.7 %) 24.0 L MCV (81.0 - 99.0 fL) 84.8 MCH (27.0 - 33.0 pg) 28.3 MCHC (33.0 - 37.0 g/dL) 33.3 RDW (11.5 - 14.5 %) 14.6 H Plt Count (150 - 400 x10 3/uL) 244 MPV (7.0 - 9.0 fL) 9.2 H Neut % (Auto) (56.0 - 77.0 %) 86.7 H Lymph % (Auto) (14.0 - 32.0 %) 8.2 L Boundary % (Auto) (4.8 - 9.0 %) 4.1 L Eos % (Auto) (0.3 - 3.7 %) 0.4 Baso % (Auto) (0.0 - 2.0 %) 0.1 Neut # (Auto) (2.0 - 7.6 x10 3/uL) 11.92 H Lymph # (Auto) (1.0 - 3.8 x10 3/uL) 1.13 Boundary # (Auto) (0.1 - 0.8 x10 3/uL) 0.57 Eos # (Auto) (0.0 - 0.2 x10 3/uL) 0.05 Baso # (Auto) (0.0 - 0.2 x10 3/uL) 0.01 Abs Immat Gran (auto) (0.00 - 0.03 x10 3/uL) 0. 07 H Add Manual Diff NO Immature Gran % (0.0 - 2.0 %) 0.5 Nucleated RBC % (0 - 0 %) 0.0 Nucleated RBCs # (Man) (0.0 - 0.1 x10 3/uL) 0.0 0 Laboratory Tests: 08/28 08/28 08/28 08/28 08/27 1302 1218 0624 0420 2050 Chemistry Sodium (134 - 147 mEq/L) 137 Potassium (3.4 - 5.0 mEq/L) 5.0 Chloride (100 - 108 mEq/L) 109 H Carbon Dioxide (21 - 33 mEq/l) 21 Anion Gap (0 - 20) 12 BUN (7 - 18 mg/dL) 30 H Creatinine (0.6 - 1.3 mg/dL) 1.4 H Glomerular Filtr Rate (90 - 95) 58.3 L Glucose (70 - 110 mg/dL) 167 H POC Glucose (70 - 110 MG/DL) 206 H 185 H 180 H 87 Calcium (8.0 - 10.5 mg/dL) 7.7 L Ionized Calcium Mitzi (1.09 - 1.30 MMOL/L) 1.12 Phosphorus (2.5 - 4.9 MG/DL) 4.8 Magnesium (1.80 - 2.40 mg/dL) 1.89 Total Bilirubin (0.0 - 1.0 mg/dL) 0.40 AST (15 - 37 IUnit/L) 17 ALT (30 - 65 IUnit/L) 9 L Total Alk Phosphatase (20 - 125 IUnit/L) 111 Total Protein (6.4 - 8.2 g/dL) 5.8 L Albumin (3.4 - 5.0 g/dL) 1.30 L Hematology WBC (4.5 - 11.0 x10 3/uL) 13.8 H RBC (4.00 - 5.60 x10 6/uL) 2.83 L Hgb (12.5 - 16.9 g/dL) 8.0 L Hct (37.5 - 50.7 %) 24.0 L MCV (81.0 - 99.0 fL) 84.8 MCH (27.0 - 33.0 pg) 28.3 MCHC (33.0 - 37.0 g/dL) 33.3 RDW (11.5 - 14.5 %) 14.6 H Plt Count (150 - 400 x10 3/uL) 244 MPV (7.0 - 9.0 fL) 9.2 H Neut % (Auto) (56.0 - 77.0 %) 86.7 H Lymph % (Auto) (14.0 - 32.0 %) 8.2 L Boundary % (Auto) (4.8 - 9.0 %) 4.1 L Eos % (Auto) (0.3 - 3.7 %) 0.4 Baso % (Auto) (0.0 - 2.0 %) 0.1 Neut # (Auto) (2.0 - 7.6 x10 3/uL) 11.92 H Lymph # (Auto) (1.0 - 3.8 x10 3/uL) 1.13 Boundary # (Auto) (0.1 - 0.8 x10 3/uL) 0.57 Eos # (Auto) (0.0 - 0.2 x10 3/uL) 0.05 Baso # (Auto) (0.0 - 0.2 x10 3/uL) 0.01 Abs Immat Gran (auto) (0.00 - 0.03 0.07 H x10 3/uL) Add Manual Diff NO Immature Gran % (0.0 - 2.0 %) 0.5 Nucleated RBC % (0 - 0 %) 0.0 Nucleated RBCs # (Man) (0.0 - 0.1 0.00 x10 3/uL) 08/27 08/27 08/27 08/27 08/27 1825 1728 1147 0824 0533 Chemistry Sodium (134 - 147 mEq/L) 136 137 Potassium (3.4 - 5.0 mEq/L) 5.1 H 5.3 H Chloride (100 - 108 mEq/L) 109 H 110 H Carbon Dioxide (21 - 33 mEq/l) 20 L 20 L Anion Gap (0 - 20) 12 12 BUN (7 - 18 mg/dL) 30 H 33 H Creatinine (0.6 - 1.3 mg/dL) 1.2 1.2 Glomerular Filtr Rate (90 - 95) 70.1 L 70.1 L Glucose (70 - 110 mg/dL) 161 H 285 H POC Glucose (70 - 110 MG/DL) 148 H 244 H 294 H Calcium (8.0 - 10.5 mg/dL) 7.5 L 7.2 L Phosphorus (2.5 - 4.9 MG/DL) 5.4 H Magnesium (1.80 - 2.40 mg/dL) 1.94 Total Bilirubin (0.0 - 1.0 mg/dL) 0.40 AST (15 - 37 IUnit/L) 12 L ALT (30 - 65 IUnit/L) 9 L Total Alk Phosphatase (20 - 125 IUnit/L) 111 Total Protein (6.4 - 8.2 g/dL) 5.7 L Albumin (3.4 - 5.0 g/dL) 1.30 L 08/27 08/26 08/26 8108 2041 1739 Chemistry POC Glucose (70 - 110 MG/DL) 148 H 169 H Ionized Calcium Mitzi (1.09 - 1.30 MMOL/L) 1.08 L Hematology WBC (4.5 - 11.0 x10 3/uL) 15.9 H RBC (4.00 - 5.60 x10 6/uL) 3.07 L Hgb (12.5 - 16.9 g/dL) 8.6 L Hct (37.5 - 50.7 %) 25.9 L MCV (81.0 - 99.0 fL) 84.4 MCH (27.0 - 33.0 pg) 28.0 MCHC (33.0 - 37.0 g/dL) 33.2 RDW (11.5 - 14.5 %) 14.6 H Plt Count (150 - 400 x10 3/uL) 250 MPV (7.0 - 9.0 fL) 9.8 H Neut % (Auto) (56.0 - 77.0 %) 88.7 H Lymph % (Auto) (14.0 - 32.0 %) 7.0 L Boundary % (Auto) (4.8 - 9.0 %) 3.3 L Eos % (Auto) (0.3 - 3.7 %) 0.3 Baso % (Auto) (0.0 - 2.0 %) 0.1 Neut # (Auto) (2.0 - 7.6 x10 3/uL) 14.14 H Lymph # (Auto) (1.0 - 3.8 x10 3/uL) 1.11 Boundary # (Auto) (0.1 - 0.8 x10 3/uL) 0.52 Eos # (Auto) (0.0 - 0.2 x10 3/uL) 0.04 Baso # (Auto) (0.0 - 0.2 x10 3/uL) 0.02 Abs Immat Gran (auto) (0.00 - 0.03 x10 3/uL) 0. 10 H Add Manual Diff NO Immature Gran % (0.0 - 2.0 %) 0.6 Nucleated RBC % (0 - 0 %) 0.0 Nucleated RBCs # (Man) (0.0 - 0.1 x10 3/uL) 0.0 0 Microbiology: Date/Time Procedure - Status Source Growth 08/28 134 Blood Culture - RECD BLOOD 08/28 134 Blood Culture - RECD BLOOD 08/26 2216 Wound Culture - RES ABSCESS CITROBACTER FARMERI ENTEROCOCCUS 08/26 2216 Anaerobic Culture - RES ABSCESS 08/26 2216 Gram Stain - RES ABSCESS Recent Impressions: ULTRASOUND - DUP VEIN UNI/LTD 08/28 0857 Report Impression - Status: SIGNED Entered: 08/28/2022 0927 IMPRESSION: 1. No evidence of venous thrombosis involving le ft lower extremity. 2. Approximately 8 x 2 x 1.3 cm complex fluid co llection along the left upper calf probably representing a smal l hematoma. Impression By: [email or web address] - Hakeem Soto RADIOLOGY - XR FLUOROSCOPY 0-60 MIN 08/28 1101 Report Impression - Status: SIGNED Entered: 08/28/2022 1120 IMPRESSION: Fluoroscopy dosage documentation. See also separ ate procedure notes. Impression By: [email or web address] - Bishop Atkins M.D. Medication(s) Ordered: Anti-Infective Agents Sig/Jan Start time Last Medication Dose Route Stop Time Status Admin Cefazolin Sodium 1 GM Q8H 08/28 1215 AC 08/28 Sodium Chloride 10 ML IV 08/30 1315 1319 Meropenem 500 MG Q6H 08/27 1330 AC 08/28 Sterile Water 10 ML IV 09/03 1329 1329 Daptomycin 700 MG Q24H 08/25 1100 CKD 08/28 Sodium Chloride 50 ML IV 09/08 1059 1318 Antihistamine Drugs Sig/Jan Start time Last Medication Dose Route Stop Time Status Admin Diphenhydramine HCl 12.5 MG PACU ONCE PRN 08/28 1045 DC IV 08/28 203 Promethazine HCl 25 MG PACU ONCE PRN 08/28 1045 DC PO 08/28 2036 Autonomic Drugs Sig/Jan Start time Last Medication Dose Route Stop Time Status Admin Norepinephrine 0 .STK-MED ONE 08/28 1102 DC Bitartrate IV Phenylephrine HCl 0 .STK-MED ONE 08/28 1059 DC .ROUTE Phenylephrine HCl 0 .STK-MED ONE 08/28 1014 DC .ROUTE Blood Formation,Coagulation Sig/Jan Start time Last Medication Dose Route Stop Time Status Admin Heparin Sodium 5,000 UNIT Q8HR 08/18 0600 AC SUBQ 09/17 0559 1320 Cardiovascular Drugs Sig/Jan Start time Last Medication Dose Route Stop Time Status Admin Hydralazine HCl 5 MG PACU Q10MIN PRN PRN 08/28 1045 DC IV 08/28 203 Labetalol HCl 5 MG PACU Q10MIN PRN PRN 08/28 1 045 DC IV 08/28 203 Lidocaine HCl 0 .STK-MED ONE 08/28 1027 DC .ROUTE Lidocaine HCl 0 .STK-MED ONE 08/28 09 DC .ROUTE Lidocaine HCl 2 ML PREOP ONCALL 08/27 1929 AC LOCAL 09/26 2358 Lidocaine HCl 2 ML PREOP ONCALL 08/27 1929 AC LOCAL 09/26 235 Central Nervous System Agents Sig/Jan Start time Last Medication Dose Route Stop Time Status Admin Fentanyl Citrate 0 .STK-MED ONE 08/28 1155 DC .ROUTE Fentanyl Citrate 100 MCG PACU Q10MIN PRN PRN 1045 DC IV 08/28 203 Fentanyl Citrate 50 MCG PACU Q10MIN PRN PRN 1045 DC IV 08/28 203 Hydrocodone Bitart/ 1 TAB PACU ONCE 08/28 1045 DC Acetaminophen PO 08/29 2035 Hydromorphone HCl 1 MG PACU Q10MIN PRN PRN 04 6 1045 DC IV 08/29 2035 Hydromorphone HCl 0.5 MG PACU Q5MIN PRN PRN 1045 DC IV 08/28 203 Meperidine HCl 12.5 MG PACU ONCE PRN 08/28 1045 DC IV 08/28 203 Morphine Sulfate 2 MG PACU Q10MIN PRN PRN 08/28 1045 DC IV 08/28 203 Tramadol HCl 50 MG PACU ONCE 08/28 1045 DC PO 08/29 2035 Fentanyl Citrate 0 .STK-MED ONE 08/28 921 DC .ROUTE Midazolam HCl 0 .STK-MED ONE 08/28 921 DC .ROUTE Propofol 20 ML .STK-MED ONE 08/28 09 DC IV Acetaminophen 1,000 MG PREOP ONCALL 08/27 1929 CKD PO 09/26 2358 Gabapentin 200 MG PREOP ONCALL 04/05 1930 CKD PO 09/26 2359 Lorazepam 1 MG ONCE PRN 08/21 0900 AC 08/21 IV 09/20 0859 1143 Acetaminophen 650 MG Q6H PRN PRN 08/18 0945 AC 08/28 PO 09/17 0944 0255 Electrolytic, Caloric, And Daniel Sig/Jan Start time Last Medication Dose Route Stop Time Status Admin Lactated Ringer's 1,000 ML PREOP ONCALL 08/27 1 930 AC IV 09/26 2359 Sodium Chloride 500 ML PREOP ONCALL 08/27 1930 AC IV 09/26 2359 Sodium Chloride 500 ML PREOP ONCALL 08/27 1930 AC IV 09/26 2359 Sodium Chloride 1,000 ML PREOP ONCALL 08/27 193 0 AC IV 09/26 2359 Sodium Chloride 5 ML ASDIR PRN 08/27 1930 AC IV 09/26 1929 Sodium Chloride 10 ML ASDIR PRN 08/27 1930 AC IV 09/26 1929 Sodium Chloride 250 ML ASDIR PRN 08/27 1930 AC IV 09/26 1929 Sodium Chloride 0 ASDIR PRN 08/21 0900 AC IV 09/20 0859 Dextrose/Water 125 ML ASDIR PRN 08/20 1530 CKD IV 09/19 1529 Dextrose/Water 250 ML ASDIR PRN 08/20 1530 CKD IV 09/19 1529 Dextrose/Water 1,000 ML ASDIR 08/19 1015 AC IV 09/18 1014 Gastrointestinal Drugs Sig/Jan Start time Last Medication Dose Route Stop Time Status Admin Ondansetron HCl 4 MG PACU ONCE PRN 08/28 1045 D C IV 08/28 2036 Ondansetron HCl 0 .STK-MED ONE 08/28 1014 DC .ROUTE Famotidine 20 MG BID 08/21 2100 AC 08/28 PO 09/20 205 0841 Bisacodyl 10 MG DAILY PRN PRN 08/18 0945 AC RECTAL 09/17 0944 Docusate Sodium 100 MG Q12H PRN PRN 08/18 0945 AC 08/22 PO 09/17 0944 2109 Ondansetron HCl 4 MG Q6H PRN PRN 08/18 0945 AC IV 09/17 0944 Hormones And Synthetic Substit Sig/Jan Start time Last Medication Dose Route Stop Time Status Admin Insulin Human Lispro 0 PACU ONCE PRN 08/28 1045 DC SUBQ 04/06 2036 Insulin Glargine 15 UNIT BEDTIME 08/27 2100 AC 08/27 SUBQ 09/26 Insulin Glargine 25 UNIT BEDTIME 08/20 2100 DC 08/24 SUBQ 09/19 Insulin Human Lispro 7 UNIT AC 08/20 1630 AC /06 SUBQ 09/19 1629 1319 Insulin Human Lispro 0 AC HS 08/20 1630 AC 04/0 6 SUBQ 09/19 162 1319 Glucagon 1 MG ASDIR PRN 08/20 1530 AC IM 09/19 1529 Local Anesthetics (Parenteral) Sig/Jan Start time Last Medication Dose Route Stop Time Status Admin Ropivacaine 150 MG ASDIR PRN 08/28 1045 DC LOCAL 08/29 2035 Microbiology: 08/28 134 BLOOD: Blood Culture - RECD 08/28 134 BLOOD: Blood Culture - RECD 08/26 2216 ABSCESS: Wound Culture - RES CITROBACTER FARMERI ENTEROCOCCUS 08/26 2216 ABSCESS: Anaerobic Culture - RES 08/26 221 ABSCESS: Gram Stain - RES Recent Impressions: ULTRASOUND - DUP VEIN UNI/LTD 08/28 0857 Report Impression - Status: SIGNED Entered: 08/28/2022 0927 IMPRESSION: 1. No evidence of venous thrombosis involving le ft lower extremity. 2. Approximately 8 x 2 x 1.3 cm complex fluid co llection along the left upper calf probably representing a smal l hematoma. Impression By: [email or web address] - Hakeem Soto RADIOLOGY - XR FLUOROSCOPY 0-60 MIN 08/28 1101 Report Impression - Status: SIGNED Entered: 08/28/2022 1120 IMPRESSION: Fluoroscopy dosage documentation. See also separ ate procedure notes. Impression By: [email or web address] - Bishop Atkins M.D. Portions of this section wer e scribed by Jill Quintero on 08/28/22 at 1856 Treatment Prophylaxis Treatment Prophylaxis Lines: peripheral Portions of this section wer e scribed by Jill Quintero on 08/28/22 at 1444 Diagnosis, Assessment Plan Free Text A P: Assessment: *MRSA bacteremia -Initial blood cultures from 08/18/2022 positive for MRSA in 2 out of 2 sets. -Repeat blood cultures 08/21/2022 are already po sitive for MRSA in 2 out of 2 sets, suggesting persistent high-grade bacteremi a. -TTE 08/18/2022 negative for any obvious vegetat ions. *Severe sepsis due to above *Right lower extremity necrotizing fasciitis -MRI of foot (+)Ve for osteomyelitis -s/p debridement on 08/19: cx grew MRSA *DKA *Prostatic abscess *ERIKA *Hyponatremia *Diabetic neuropathy *Diabetes mellitus type 2 *Hypertension Plan: 08/25 -Discussed the possibility of amputation with david cavazos and family at bedside -Recommend JIMENA. -Repeat blood cultures x2 again today. -Continue to repeat serial blood cultures till b acteremia clears. -D/C clindamycin and vancomycin. -start on DAptomycin and Teflaro -check urine cx Discussed with Dr. Bass about MRI report 08/26 -plan for transrectal aspiration of abscess toda y -repeat blood cx are still (+)Ve; will repeat bl ood cx tomorrow -cont on daptomycin and Teflaro day #2 -Pt needs a JIMENA r/o endocarditis as pt has high grade persistent bacteremia -plan for Right BKA on 08/28 4/ -s/p transrectal aspiration and unroofing of abs cess; cx GNR; will follow - repeat blood cx today --cont on daptomycin and Teflaro day #3 -Pt needs a JIMENA r/o endocarditis as pt has high grade persistent bacteremia -plan for Right BKA on 08/28 08/28 s/p right BKA -repeat blood cx sent today -cont on Daptomycin day #4 -NEeds a JIMENA r/o endocarditis -prostate abscess: Coag (+)V e staph, citrobacter and Enterococcus; on Merrem day #2 Portions of this section wer e scribed by Jill Quintero on 08/28/22 at 1856 at 0836 RPT #:[id number] END OF REPORT 2022-08-28 12:06:00-00:00 [id number] [place] [id number] PATIENT NAME: KARMA ROWLAND ADMIT DATE: 08/18 ACCOUNT NO: [id number] ROOM NO: G.[id number] AGE: 56 REPORT TYPE: OPERATIVE REPORT SEX: M ADMITTING PHYSICIAN:Wilbert Ramires MD ATTENDING PHYSICIAN:Wilbert Ramires MD OPERATION DATE: 08/28/2022 PREOPERATIVE DIAGNOSIS: Right foot and ankle marlena grene. POSTOPERATIVE DIAGNOSIS: Right foot and ankle ga ngrene. PROCEDURE PERFORMED: Right below-knee amputation . SURGEON: ATTENDING SURGEON:: Nixon Leroy MD. ASSISTANTS: 1. JAMES Josue. 2. Letha, PGY-3. ANESTHESIA: General endotracheal anesthesia. 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 The mira ent went for an urgent debridement on presentation. The patient's extre mity was significantly damage from the infection and nonreconstructabl e from podiatry standpoint, thus a BKA was recommended. The patient was agreeable to pr oceed. Risks, benefits and alternatives were discussed with the pat ient. Risks include but not limited to pain, bleeding, damage to ne urovascular structures, infection, wound dehiscence, phantom pain, knee stiffness, inability to retur n to baseline activity level, need for further procedures, and anesthetic comp lications. Benefits include infection control and stable extremity for prost hetic fitting. Alternatives include no surgery, which wa s not indicated for this grossly infected extremity with possible risk of further clinical worsening . Extremity was marked by the surgeon, confirmed by the patient. Consent was o btained at bedside after the above has been reviewed. PROCEDURE IN DETAIL: The patient was taken from the ICU down to the operating room via stretcher. He was placed supine on the operating table. The patient was intubated under general endotracheal anesthe jaci. We began by placing a tourniquet around the thigh and a hip ro ll. The extremity was then prepped and draped in a sterile fashion. Timeout was perform ed to ensure the proper extremity and appropriate surgery, all were in a greement. We began by marking out our landmarks. We marked our proposed bony c ut approximately 10 cm distal from the tibial tubercle. We then created our flaps with an anterior two-thirds anterior incision and a flap approximately 1.5 t imes longer than the anterior cut. Timeout was performed to ensure the proper extremity and proper surgery, all were in agreement. We then elevated the extr emity and then inflated the tourniquet. We began by making a full-thickness incision with a 10 blade PATIENT NAME: KARMA ROWLAND [id number] circumferentially. There was some expression of purulent fluid distally near the borders of the demarcation. We then began to dissect on the anterolateral aspect of the lower leg. Once through th e anterior compartment musculature, we then identified the deep vessels. The vessels we re ligated and cut. The deep peroneal vessel was infiltrated with lid ocaine and then transected sharply and allowed to retract the soft tissues. We then com pleted further transection of the musculature medially. Once the tibia was exp osed, we then periosteally elevated proximally as well as posteriorly. An A rmy-[place] was placed posterior to the tibia to protect the soft tissues.. We th en used a large oscillating saw blade to transect the tibia completely. We t jeff identified the fibula and approximately 1 cm prior to this, we made our fi bular cut with a bone cutter. A bone hook was used to reflect the lower extrem ity and an amputation knife was used to complete the amputation posteriorly. We then placed the extremity and in a bag for pathology. We then evaluated th e wound. We then irrigated thoroughly debriding all ill-appearing t issue and any collections distally. We identified our distal tibial vessels and nerve. The vessels were ligated and the nerve was identified infiltrating with lidoc elizabeht and then transected to allow to retract the soft tissues. Once this was complete, we then debulked the area to allow a tension-free closure. We the n beveled the anterior aspect of the tibia and rasped to the bone. Three drill holes were placed. We then placed two [place] sutures with #5 Ethibond and t he fascia of the gastrocnemius. These were then placed through th e distal tibia and tied over bony bridge. We then irrigated thoroughly again. We then placed a deep drain. Next, we then began to close the wound in layers. The fascia was closed to the anterior tibial fashion with 0 Félix ryl followed by 2-0 Vicryl followed by rob. The extremity was cleansed and dried. A Xeroform was placed over the wounds following Kerlix and an A ce bandage. We then placed extremity in a knee immobilizer and secu red the Hemovac drain. The patient was then awoken and taken to recovery in stable cond ition. All counts were correct at the end of the procedure. ESTIMATED BLOOD LOSS: Approximately 50 mL. SPECIMENS REMOVED: Right lower leg to pathology. COMPLICATIONS: None. DRAINS: Hemovac x1 to the right lower extremity. TUBES: None. IMPLANTS: None. FLUIDS: 100 mL LR. URINE OUTPUT: NA. FINDINGS: As above. DISPOSITION: The patient will go to PACU. He is to be nonweightbearing to the right lower extremity. We will monitor VAC outpu t for possible removal postoperative day #1 or #2. Dictated By: Nixon Leroy MD PATIENT NAME: KARMA ROWLAND [id number] Date Dictated: 08/28/2022 12:06:09 Date Transcribed: 08/28/2022 13:10:48 YENI/TONI/YASMINE Receipt ID: [id number] Authenticated and Edited by Nixon Leroy MD On 10/15/22 8:24:59 PM Electronically Signed by Nixon Leroy MD on at 0827 PATIENT NAME: KARMA ROWLAND [id number] 30[birth year] 11:57:00-00:00 [facility]) Op/Inv Procedure Note - Brief REPORT#:[id number] REPORT STATUS: Signed DATE:08/28/22 TIME: 1157 PATIENT: KARMA ROWLAND UNIT #: [id number] ROOM/BED: [facility]-1 : 63 AGE: 56 SEX: M ATTEND: Mikayla Ramires MD ADM AUTHOR: Nixon Leroy MD * ALL edits or amendments must be made on the el ectronic/computer document * Op/Inv Proc Note - Brief TEXT Brief Op/Inv Procedure Note Note details: *PRE-PROCEDURE DIAGNOSIS: [] right foot and ankle gangrene *POST-PROCEDURE DIAGNOSIS: Same[] *PROCEDURE(S) PERFORMED: []1. right below knee amputation *PRIMARY SURGEON: []MD Alfred *ENVIRONMENTAL TECHNOLOGY PROFESSOR(S): []JAMES Josue, PGY-3 ANESTHETIC: []geta *ESTIMATED BLOOD LOSS in ml's: []50 mL *SPECIMEN(S) REMOVED: []right lower leg *COMPLICATIONS: None[] DRAIN(S): Hemovac x 1[] TUBE(S): None[] IMPLANT(S): None[] FLUIDS: []500 cc LR URINE OUTPUT: []n/a *FINDINGS: []as above DISPOSITION: To PACU[] NWB RLE monitor vac output will need consult for [employer] stump protector [id number] Electronically Signed by Nixon Leroy MD on 11/14 at 1206 RPT #:[id number] END OF REPORT 2022-08-28 09:52:00-00:[address] [facility] ([facility]) Cardiology Progress Note REPORT#:[id number] REPORT STATUS: Signed DATE:08/28/22 TIME: 951 PATIENT: KARMA ROWLAND UNIT #: [id number] ROOM/BED: [place] [id number] : 63 AGE: 56 SEX: M ATTEND: Mikayla Ramires MD ADM AUTHOR: Rohit Benitez CLAY MILLER * ALL edits or amendments must be made on the [employer]/computer document * Rohit Benitez 08/28/22 0952: Subjective Chief complaint: foot infection Free Text Subj Notes Free Text Subj Notes: Chart reviewed. No new events overnight. Plan fo r right BKA today. Objective General VS/I O: 24 hour I O ending at 0700: 08/28 0700 08/27 1900 Intake Total 31928.00 Output Total 47828 Balance 290.00 Intake, IV 160.00 Intake, Oral 1380 Intake, Other 70967 Number 2 Bowel Movements Output, Other 14966 Patient 165 lb Weight Weight Bed scale Measurement Method Vital Signs: Date Time Temp Pulse Resp B/P B/P Pulse O2 O2 F low FiO2 Mean Ox Delivery Rate 08/28 899 86 17 124/64 87 96 04/06 0800 87 13 133/63 90 95 04/06 0745 85 15 130/63 90 95 04/06 0730 87 16 102/55 72 97 04/06 0715 87 14 119/60 84 95 04/06 0700 87 10 120/62 85 94 04/06 0645 87 14 115/60 82 94 04/06 0631 86 21 107/54 78 94 04/06 0615 94 25 129/63 91 96 04/06 0600 90 11 124/62 87 95 04/06 0545 90 10 125/62 88 95 04/06 0530 90 14 128/62 89 95 04/06 0515 91 10 125/64 87 95 04/06 0500 89 7 126/66 88 95 04/06 0445 90 12 128/65 89 94 04/06 0430 90 10 131/63 90 94 04/06 0415 89 15 126/61 88 95 04/06 0400 98.2 04/06 0400 136/65 93 95 04/06 0330 92 15 142/67 96 95 04/06 0315 96 25 112/59 81 95 04/06 0300 96 25 123/60 85 95 04/06 0245 97 18 124/58 84 95 04/06 0230 95 22 127/60 86 95 04/06 0201 92 19 123/57 80 04/06 0145 89 20 130/60 86 04/06 0130 87 18 113/58 81 04/06 0115 84 13 115/58 79 94 04/06 0100 85 13 122/60 84 95 04/06 0045 84 13 120/59 83 93 04/06 0030 85 12 117/59 82 93 04/06 0015 85 13 117/60 82 94 04/06 0000 98.0 04/06 0000 85 12 116/58 81 94 04/05 2300 86 19 130/59 88 96 04/05 2245 86 22 135/65 91 95 04/05 2230 88 24 140/65 97 96 04/05 2215 90 19 142/66 95 96 04/05 2200 90 14 128/60 87 96 04/05 2145 87 19 129/59 85 95 04/05 2130 84 12 122/57 82 94 04/05 2115 85 17 138/66 95 96 04/05 2100 85 13 142/66 95 96 04/05 2045 86 14 154/73 105 97 04/05 2030 86 14 144/66 98 97 04/05 2014 83 11 138/68 95 97 04/05 1999 97.9 04/05 1999 83 10 140/71 100 98 04/05 1945 84 12 140/69 99 97 04/05 1930 85 12 155/73 105 99 04/05 1915 85 14 154/73 105 100 04/05 1900 87 15 158/72 104 93 04/05 1845 87 20 142/60 92 98 04/05 1830 88 19 153/75 108 100 04/05 1815 87 16 167/75 108 100 04/05 1800 89 21 148/69 100 95 04/05 1745 87 18 151/73 105 100 04/05 1730 85 15 153/77 106 100 04/05 1715 83 11 137/67 96 99 04/05 1700 84 14 137/63 91 100 04/05 1645 82 15 144/70 100 100 04/05 1631 116/69 87 98 04/05 1615 86 20 140/68 98 99 04/05 1600 98.4 04/05 1600 81 15 129/64 91 100 04/05 1545 80 18 140/65 94 99 04/05 1530 80 14 132/67 94 100 04/05 1515 81 17 135/67 95 100 04/05 1500 80 11 132/66 92 100 04/05 1445 80 11 121/63 84 100 04/05 1430 79 11 136/70 96 100 04/05 1415 80 12 128/69 93 100 04/05 1400 80 15 129/65 91 99 04/05 1345 84 17 145/69 99 100 04/05 1330 82 15 123/61 86 100 04/05 1315 80 12 124/59 82 100 04/05 1300 81 12 127/60 86 100 04/05 1245 83 18 124/67 90 100 04/05 1230 81 17 141/74 100 100 04/05 1215 83 17 135/72 98 100 04/05 1200 98.1 04/05 1200 83 19 130/67 91 98 04/05 1145 79 15 123/65 90 100 04/05 1130 82 16 130/67 92 100 04/05 1115 80 12 121/57 80 100 04/05 1100 80 13 124/59 85 100 04/05 1045 81 20 125/59 85 100 04/05 1030 84 18 132/64 92 89 04/05 1015 84 17 133/63 91 99 08/27 1000 82 12 132/61 88 97 PATIENT WEIGHT: Weight (lb): 165 Weight (oz): 2.02 Weight (kg): 74.900 Medications: Active Meds + DC'd Last 24 Hrs Fentanyl Citrate (SUBLIMAZE) 0 .STK-MED ONE .ROU TE (DC) Lidocaine HCl (XYLOCAINE) 0 .STK-MED ONE .ROUTE (DC) Midazolam HCl (VERSED) 0 .STK-MED ONE .ROUTE (DC ) Propofol (DIPRIVAN 200MG/20ML INJECTION) 20 ML . STK-MED ONE IV (DC) Insulin Glargine (Lantus/Semglee) 15 UNIT BEDTIM E SUBQ Acetaminophen (TYLENOL EXTRA STRENGTH) 1,000 MG PREOP ONCALL PO (CKD) Gabapentin (NEURONTIN) 200 MG PREOP ONCALL PO (C KD) Lactated Ringer's (LACTATED RINGERS) 1,000 ML NV EOP ONCALL IV Lidocaine HCl (LIDOCAINE HCL/PF) 2 ML PREOP ONCA LL LOCAL Lidocaine HCl (LIDOCAINE HCL/PF) 2 ML PREOP ONCA LL LOCAL Sodium Chloride (SODIUM CHLORIDE 0.9%) 500 ML NV EOP ONCALL IV Sodium Chloride (SODIUM CHLORIDE 0.9%) 500 ML NV EOP ONCALL IV Sodium Chloride (SODIUM CHLORIDE 0.9%) 1,000 ML PREOP ONCALL IV Sodium Chloride (SODIUM CHLORIDE) 5 ML ASDIR PRN IV Sodium Chloride (SODIUM CHLORIDE) 10 ML ASDIR NV N IV Sodium Chloride (SODIUM CHLORIDE 0.9%) 250 ML DIR PRN IV Meropenem (MEROPENEM) 500 MG Q6H IV Sterile Water (WATER FOR INJECTION) 10 ML Calcium Gluconate/Sodium Chloride (Calcium Gluco denny 1 GM/NS 50 mL) 50 ML ONCE ONE IV (DC) Sodium Polystyrene Sulfonate (KAYEXELATE) 30 GM ONCE ONE PO (DC) Ceftaroline Fosamil (TEFLARO) 600 MG Q8H IV (DC) Sodium Chloride (SODIUM CHLORIDE 0.9%) 100 ML Daptomycin (CUBICIN 500MG) 700 MG Q24H IV (CKD) Sodium Chloride (SODIUM CHLORIDE 0.9%) 50 ML Famotidine (PEPCID) 20 MG BID PO Lorazepam (ATIVAN) 1 MG ONCE PRN IV Sodium Chloride (SODIUM CHLORIDE) 0 ASDIR PRN IV Insulin Glargine (Lantus/Semglee) 25 UNIT BEDTIM E SUBQ (DC) Insulin Human Lispro (HUMALOG) 7 UNIT AC SUBQ Insulin Human Lispro (HUMALOG) 0 AC HS SUBQ Dextrose/Water (DEXTROSE 10% IN WATER) 125 ML DIR PRN IV (CKD) Dextrose/Water (DEXTROSE 10% IN WATER) 250 ML DIR PRN IV (CKD) Glucagon (GLUCAGON) 1 MG ASDIR PRN IM Dextrose/Water (Dextrose 10% 1,000 mL) 1,000 ML ASDIR IV Acetaminophen (TYLENOL) 650 MG Q6H PRN PRN PO Bisacodyl (DULCOLAX) 10 MG DAILY PRN PRN RECTAL Docusate Sodium (COLACE) 100 MG Q12H PRN PRN PO Ondansetron HCl (ZOFRAN) 4 MG Q6H PRN PRN IV Heparin Sodium (HEPARIN 5000 UNITS/ML) 5,000 UNI T Q8HR SUBQ Physical Exam General appearance: alert, awake, oriented Neck: no bruit/NL carotids, no JVD Cardiovascular: CV assessment: abnormal S1/S2, regular rate and rhythm, no ectopy Respiratory: clear to auscultation, no distress Lower extremity: LE assessment: edema 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 X 3 Considered stroke alert: no Wound/incision: Location: right foot Psychiatry: normal affect, normal judgment/insig ht, normal mood Results Findings/Data: Laboratory Tests 08/28 08/28 08/27 08/27 08/27 0624 0420 2050 1825 1728 Chemistry Sodium (134 - 147 mEq/L) 137 136 Potassium (3.4 - 5.0 mEq/L) 5.0 5.1 H Chloride (100 - 108 mEq/L) 109 H 109 H Carbon Dioxide (21 - 33 mEq/l) 21 20 L Anion Gap (0 - 20) 12 12 BUN (7 - 18 mg/dL) 30 H 30 H Creatinine (0.6 - 1.3 mg/dL) 1.4 H 1.2 Glomerular Filtr Rate (90 - 95) 58.3 L 70.1 L Glucose (70 - 110 mg/dL) 167 H 161 H POC Glucose (70 - 110 MG/DL) 180 H 87 148 H Calcium (8.0 - 10.5 mg/dL) 7.7 L 7.5 L Ionized Calcium Mitzi (1.09 - 1.30 MMOL/L) 1.12 Phosphorus (2.5 - 4.9 MG/DL) 4.8 Magnesium (1.80 - 2.40 mg/dL) 1.89 Total Bilirubin (0.0 - 1.0 mg/dL) 0.40 AST (15 - 37 IUnit/L) 17 ALT (30 - 65 IUnit/L) 9 L Total Alk Phosphatase (20 - 125 IUnit/L) 111 Total Protein (6.4 - 8.2 g/dL) 5.8 L Albumin (3.4 - 5.0 g/dL) 1.30 L 08/27 1147 Chemistry POC Glucose (70 - 110 MG/DL) 244 H Laboratory Tests 08/28 0420 Hematology WBC (4.5 - 11.0 x10 3/uL) 13.8 H RBC (4.00 - 5.60 x10 6/uL) 2.83 L Hgb (12.5 - 16.9 g/dL) 8.0 L Hct (37.5 - 50.7 %) 24.0 L MCV (81.0 - 99.0 fL) 84.8 MCH (27.0 - 33.0 pg) 28.3 MCHC (33.0 - 37.0 g/dL) 33.3 RDW (11.5 - 14.5 %) 14.6 H Plt Count (150 - 400 x10 3/uL) 244 MPV (7.0 - 9.0 fL) 9.2 H Neut % (Auto) (56.0 - 77.0 %) 86.7 H Lymph % (Auto) (14.0 - 32.0 %) 8.2 L Boundary % (Auto) (4.8 - 9.0 %) 4.1 L Eos % (Auto) (0.3 - 3.7 %) 0.4 Baso % (Auto) (0.0 - 2.0 %) 0.1 Neut # (Auto) (2.0 - 7.6 x10 3/uL) 11.92 H Lymph # (Auto) (1.0 - 3.8 x10 3/uL) 1.13 Boundary # (Auto) (0.1 - 0.8 x10 3/uL) 0.57 Eos # (Auto) (0.0 - 0.2 x10 3/uL) 0.05 Baso # (Auto) (0.0 - 0.2 x10 3/uL) 0.01 Abs Immat Gran (auto) (0.00 - 0.03 x10 3/uL) 0. 07 H Add Manual Diff NO Immature Gran % (0.0 - 2.0 %) 0.5 Nucleated RBC % (0 - 0 %) 0.0 Nucleated RBCs # (Man) (0.0 - 0.1 x10 3/uL) 0.0 0 Laboratory Tests 08/28 0420 Chemistry Magnesium (1.80 - 2.40 mg/dL) 1.89 Radiology data: Recent Impressions: ULTRASOUND - DUP VEIN UNI/LTD 08/28 856 Report Impression - Status: SIGNED Entered: 08/28/202204 IMPRESSION: 1. No evidence of venous thrombosis involving le ft lower extremity. 2. Approximately 8 x 2 x 1.3 cm complex fluid co llection along the left upper calf probably representing a smal l hematoma. Impression By: [id number] - Hakeem Soto Diagnosis, Assessment Plan Free Text DxA P Notes Free Text DxA P Notes: Impression: 1. Preop eval/cardiac clearance 2. Infected right foot gas gangrene 3. DKA 4. Sepsis 5. Hypertension 6. Anemia Recommendation: Patient presented for evalua tion of altered mental status, weakness and elevated blood sugar. Diagnosed with DKA and seps is. 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 Known cardiac history of hypertensio n and hyperlipidemia. Denies prior history of CAD, CHF or arrhythmia. EKG abn ormal, NSR with anterior infarct. Vital signs stable. No prior cardiac wo rk-up. -Check echocardiogram -Monitor telemetry for arrhythmia -Monitor blood pressure trend -Wound care and IV antibiotic therapy -Supportive care 08/19: Patient doing better postop, blood pressur e control, currently in sinus rhythm, lower extremity artery Doppler negative for any significant PAD, continue current management from primary team an d podiatry service, continue monitor on telemetry for arrhythmia postop, supp ortive care, discussed with patient and family as well as RN, will follow. 08/21: Patient overall doing well, awake and irish rt today. Blood pressure well controlled. Currently in sinus rhythm to sinus t achycardia, will continue to monitor. Echocardiogram shows LVEF of 55 to 69%, no regional wall motion abnormalities, grade 1 diastolic dysfunction, an d mildly dilated LA. continue antibiotic therapy and wound care. Supportive ca re. Plan of care discussed with patient, RN and Dr. Parham. 08/22: No Significant changes from cardiac stand point. Vital signs stable. Telemetry monitoring reviewed, sinus rhythm to s inus tachycardia. We will continue monitor, sinus tachycardia likely relat ed to underlying infection. Continue wound care and antibiotic therapy. Supp ortive care. Plan of care discussed with patient, RN and Dr. Parham. 08/23: Stable cardiac status. Blood pressure and heart rate well controlled. Continue monitor telemetry. Continue wound care. Plan to transfer to floor. Supportive care. Plan of care discussed with lori hart RN and Dr. Parham. 08/24: Patient overall doing well, remains stabl e from cardiac standpoint. Blood pressure and heart rat e well controlled. No new events noted on telemetry monitoring. Remains in sinus rhythm by physical examination. Continue wound care. Supportive care. Plan of care discussed patient, RN and Dr. Parham. 08/25: Remain stable from cardiac standpoint. Bl ood pressure well controlled. Currently in sinus rhythm by physical examinatio n. Possible plan for another wound debridement today. Pain management and sup portive care. Plan of care discussed with patient, RN and Dr. Parham. 08/26: Patient remains in sinus rhythm. Blood pr essure well controlled. Plan for aspiration of prostatic cyst today. Plan for right BKA on . We will continue monitor patient postoperatively. C ontinue antibiotic therapy. Supportive care. Plan of care discussed with lori hart RN and Dr. Parham. 08/27: Patient doing well st atus post aspiration of prostatic abscess and TURP. Currently on continuous bladder irrigation. Hemo dynamically stable. Blood pressure and heart rate well controlled. Remains in normal sinus rhythm. Plan for right BKA tomorrow. Melia red from cardiac standpoint to proceed with planned surgery. Supportive care. Plan of care discussed with patient, RN and Dr. Parham. 08/28: Stable cardiac status. Plan for right BKA today. Continue antibiotic therapy and wound care. Will monitor patient pos toperatively for arrhythmia. Continue monitor telemetry. Pain management and supportive care. Plan of care discussed with RN and Dr. Parham. Gianni Parham 08/29/22 1725: Diagnosis, Assessment Plan Additional comments: Patient was seen and examined at bedside , agree with above assessment and plan as documented by nurse practitioner. Will follow . Electronically Signed by Rohit Benitez CLAY MILLER on 0 08/28/22 at 1836 at 1732 RPT #:[id number] END OF REPORT 2022-08-28 08:03:00-00:00 [facility] Hospitalist Progress Note REPORT#:[id number] REPORT STATUS: Signed DATE:08/28/22 TIME: 08 PATIENT: KARMA ROWLAND UNIT #: [id number] ROOM/BED: [place] [id number] : 61 AGE: 56 SEX: M ATTEND: Mikayla Ramires MD ADM AUTHOR: Wilbert Ramires MD * ALL edits or amendments must be made on the [employer]/computer document * Subjective Chief complaint: AMS and right foot infection. s/p extensive debridement. (+) pain in left leg x3 days Review of Systems All systems rev neg: except as noted Objective General VS/I O: Vital Signs: Date Time Temp Pulse Resp B/P B/P Pulse O2 O2 Flow FiO2 Mean Ox Delivery Rate 08/28 0645 87 14 115/60 82 94 04/06 0631 86 21 107/54 78 94 04/06 0615 94 25 129/63 91 96 04/06 0600 90 11 124/62 87 95 04/06 0545 90 10 125/62 88 95 04/06 0530 90 14 128/62 89 95 04/06 0515 91 10 125/64 87 95 04/06 0500 89 7 126/66 88 95 04/06 0445 90 12 128/65 89 94 04/06 0430 90 10 131/63 90 94 04/06 0415 89 15 126/61 88 95 04/06 0400 98.2 04/06 0400 136/65 93 95 04/06 0330 92 15 142/67 96 95 04/06 0315 96 25 112/59 81 95 04/06 0300 96 25 123/60 85 95 04/06 0245 97 18 124/58 84 95 04/06 0230 95 22 127/60 86 95 04/06 0201 92 19 123/57 80 04/06 0145 89 20 130/60 86 04/06 0130 87 18 113/58 81 04/06 0115 84 13 115/58 79 94 04/06 0100 85 13 122/60 84 95 04/06 0045 84 13 120/59 83 93 04/06 0030 85 12 117/59 82 93 04/06 0015 85 13 117/60 82 94 04/06 0000 98.0 04/06 0000 85 12 116/58 81 94 04/05 2300 86 19 130/59 88 96 04/05 2245 86 22 135/65 91 95 04/05 2230 88 24 140/65 97 96 04/05 2215 90 19 142/66 95 96 04/05 2200 90 14 128/60 87 96 04/05 2145 87 19 129/59 85 95 04/05 2130 84 12 122/57 82 94 04/05 2115 85 17 138/66 95 96 04/05 2100 85 13 142/66 95 96 04/05 2045 86 14 154/73 105 97 04/05 2030 86 14 144/66 98 97 04/05 2014 83 11 138/68 95 97 04/05 1999 97.9 04/05 1999 83 10 140/71 100 98 04/05 1945 84 12 140/69 99 97 04/05 1930 85 12 155/73 105 99 04/05 1915 85 14 154/73 105 100 04/05 1900 87 15 158/72 104 93 04/05 1845 87 20 142/60 92 98 04/05 1830 88 19 153/75 108 100 04/05 1815 87 16 167/75 108 100 04/05 1800 89 21 148/69 100 95 04/05 1745 87 18 151/73 105 100 04/05 1730 85 15 153/77 106 100 04/05 1715 83 11 137/67 96 99 04/05 1700 84 14 137/63 91 100 04/05 1645 82 15 144/70 100 100 04/05 1631 116/69 87 98 04/05 1615 86 20 140/68 98 99 04/05 1600 98.4 04/05 1600 81 15 129/64 91 100 04/05 1545 80 18 140/65 94 99 04/05 1530 80 14 132/67 94 100 04/05 1515 81 17 135/67 95 100 04/05 1500 80 11 132/66 92 100 04/05 1445 80 11 121/63 84 100 04/05 1430 79 11 136/70 96 100 04/05 1415 80 12 128/69 93 100 04/05 1400 80 15 129/65 91 99 04/05 1345 84 17 145/69 99 100 04/05 1330 82 15 123/61 86 100 04/05 1315 80 12 124/59 82 100 04/05 1300 81 12 127/60 86 100 04/05 1245 83 18 124/67 90 100 04/05 1230 81 17 141/74 100 100 04/05 1215 83 17 135/72 98 100 04/05 1200 98.1 04/05 1200 83 19 130/67 91 98 04/05 1145 79 15 123/65 90 100 04/05 1130 82 16 130/67 92 100 04/05 1115 80 12 121/57 80 100 04/05 1100 80 13 124/59 85 100 04/05 1045 81 20 125/59 85 100 04/05 1030 84 18 132/64 92 89 04/05 1015 84 17 133/63 91 99 04/05 1000 82 12 132/61 88 97 04/05 0945 82 12 125/62 84 97 04/05 0930 82 13 130/64 90 98 04/05 0915 84 15 137/73 99 100 04/05 0900 87 19 140/67 97 96 04/05 0845 88 17 152/73 105 98 04/05 0830 82 15 148/70 100 99 04/05 0815 83 14 127/66 91 100 24 hour I O ending at 0700: 04/06 0700 04/05 1900 Intake Total 01101.00 Output Total 78671 Balance 290.00 Intake, IV 160.00 Intake, Oral 1380 Intake, Other 11070 Number 2 Bowel Movements Output, Other 56788 Patient 74.9 kg Weight Weight Bed scale Measurement Method PATIENT WEIGHT: Weight (lb): 165 Weight (oz): 2.02 Weight (kg): 74.900 Medications: Active Meds + DC'd Last 24 Hrs Insulin Glargine (Lantus/Semglee) 15 UNIT BEDTIM E SUBQ Acetaminophen (TYLENOL EXTRA STRENGTH) 1,000 MG PREOP ONCALL PO (CKD) Gabapentin (NEURONTIN) 200 MG PREOP ONCALL PO (C KD) Lactated Ringer's (LACTATED RINGERS) 1,000 ML NV EOP ONCALL IV Lidocaine HCl (LIDOCAINE HCL/PF) 2 ML PREOP ONCA LL LOCAL Lidocaine HCl (LIDOCAINE HCL/PF) 2 ML PREOP ONCA LL LOCAL Sodium Chloride (SODIUM CHLORIDE 0.9%) 500 ML NV EOP ONCALL IV Sodium Chloride (SODIUM CHLORIDE 0.9%) 500 ML NV EOP ONCALL IV Sodium Chloride (SODIUM CHLORIDE 0.9%) 1,000 ML PREOP ONCALL IV Sodium Chloride (SODIUM CHLORIDE) 5 ML ASDIR PRN IV Sodium Chloride (SODIUM CHLORIDE) 10 ML ASDIR NV N IV Sodium Chloride (SODIUM CHLORIDE 0.9%) 250 ML DIR PRN IV Meropenem (MEROPENEM) 500 MG Q6H IV Sterile Water (WATER FOR INJECTION) 10 ML Calcium Gluconate/Sodium Chloride (Calcium Gluco denny 1 GM/NS 50 mL) 50 ML ONCE ONE IV (DC) Sodium Polystyrene Sulfonate (KAYEXELATE) 30 GM ONCE ONE PO (DC) Ceftaroline Fosamil (TEFLARO) 600 MG Q8H IV (DC) Sodium Chloride (SODIUM CHLORIDE 0.9%) 100 ML Daptomycin (CUBICIN 500MG) 700 MG Q24H IV (CKD) Sodium Chloride (SODIUM CHLORIDE 0.9%) 50 ML Famotidine (PEPCID) 20 MG BID PO Lorazepam (ATIVAN) 1 MG ONCE PRN IV Sodium Chloride (SODIUM CHLORIDE) 0 ASDIR PRN IV Insulin Glargine (Lantus/Semglee) 25 UNIT BEDTIM E SUBQ (DC) Insulin Human Lispro (HUMALOG) 7 UNIT AC SUBQ Insulin Human Lispro (HUMALOG) 0 AC HS SUBQ Dextrose/Water (DEXTROSE 10% IN WATER) 125 ML DIR PRN IV (CKD) Dextrose/Water (DEXTROSE 10% IN WATER) 250 ML DIR PRN IV (CKD) Glucagon (GLUCAGON) 1 MG ASDIR PRN IM Dextrose/Water (Dextrose 10% 1,000 mL) 1,000 ML ASDIR IV Acetaminophen (TYLENOL) 650 MG Q6H PRN PRN PO Bisacodyl (DULCOLAX) 10 MG DAILY PRN PRN RECTAL Docusate Sodium (COLACE) 100 MG Q12H PRN PRN PO Ondansetron HCl (ZOFRAN) 4 MG Q6H PRN PRN IV Heparin Sodium (HEPARIN 5000 UNITS/ML) 5,000 UNI T Q8HR SUBQ Physical Exam General appearance: alert, awake, oriented Head/Eyes: normocephalic ENT: moist mucosal membranes Neck: no JVD Cardiovascular: regular rate rhythm, no heave Respiratory: aerating well, clear to auscultatio n, symmetric expansion, no distress Abdomen: non-tender, normal bowel sounds, soft, no distention Genitourinary: no bladder distention Extremities: R foot in dressing 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 X 3, 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 Considered stroke alert: no Skin: no rash Psychiatry: normal affect, normal judgment/insig ht, normal mood Results Findings/Data: Laboratory Tests 08/28 08/28 08/27 08/27 08/27 0624 0420 2050 1825 1728 Chemistry Sodium (134 - 147 mEq/L) 137 136 Potassium (3.4 - 5.0 mEq/L) 5.0 5.1 H Chloride (100 - 108 mEq/L) 109 H 109 H Carbon Dioxide (21 - 33 mEq/l) 21 20 L Anion Gap (0 - 20) 12 12 BUN (7 - 18 mg/dL) 30 H 30 H Creatinine (0.6 - 1.3 mg/dL) 1.4 H 1.2 Glomerular Filtr Rate (90 - 95) 58.3 L 70.1 L Glucose (70 - 110 mg/dL) 167 H 161 H POC Glucose (70 - 110 MG/DL) 180 H 87 148 H Calcium (8.0 - 10.5 mg/dL) 7.7 L 7.5 L Ionized Calcium Mitzi (1.09 - 1.30 1.12 MMOL/L) Phosphorus (2.5 - 4.9 MG/DL) 4.8 Magnesium (1.80 - 2.40 mg/dL) 1.89 Total Bilirubin (0.0 - 1.0 mg/dL) 0.40 AST (15 - 37 IUnit/L) 17 ALT (30 - 65 IUnit/L) 9 L Total Alk Phosphatase (20 - 125 111 IUnit/L) Total Protein (6.4 - 8.2 g/dL) 5.8 L Albumin (3.4 - 5.0 g/dL) 1.30 L 08/27 08/27 1147 0824 Chemistry POC Glucose (70 - 110 MG/DL) 244 H 294 H Laboratory Tests 08/28 0420 Hematology WBC (4.5 - 11.0 x10 3/uL) 13.8 H RBC (4.00 - 5.60 x10 6/uL) 2.83 L Hgb (12.5 - 16.9 g/dL) 8.0 L Hct (37.5 - 50.7 %) 24.0 L MCV (81.0 - 99.0 fL) 84.8 MCH (27.0 - 33.0 pg) 28.3 MCHC (33.0 - 37.0 g/dL) 33.3 RDW (11.5 - 14.5 %) 14.6 H Plt Count (150 - 400 x10 3/uL) 244 MPV (7.0 - 9.0 fL) 9.2 H Neut % (Auto) (56.0 - 77.0 %) 86.7 H Lymph % (Auto) (14.0 - 32.0 %) 8.2 L Boundary % (Auto) (4.8 - 9.0 %) 4.1 L Eos % (Auto) (0.3 - 3.7 %) 0.4 Baso % (Auto) (0.0 - 2.0 %) 0.1 Neut # (Auto) (2.0 - 7.6 x10 3/uL) 11.92 H Lymph # (Auto) (1.0 - 3.8 x10 3/uL) 1.13 Boundary # (Auto) (0.1 - 0.8 x10 3/uL) 0.57 Eos # (Auto) (0.0 - 0.2 x10 3/uL) 0.05 Baso # (Auto) (0.0 - 0.2 x10 3/uL) 0.01 Abs Immat Gran (auto) (0.00 - 0.03 x10 3/uL) 0. 07 H Add Manual Diff NO Immature Gran % (0.0 - 2.0 %) 0.5 Nucleated RBC % (0 - 0 %) 0.0 Nucleated RBCs # (Man) (0.0 - 0.1 x10 3/uL) 0.0 0 Diagnosis, Assessment Plan Free Text DxA P Notes Free text DxA P notes: DKA DM 2, poorly controlled severe gas gangrene, right foot/necrotizing fasc itis MRSA bacteremia ERIKA severe hyponatremia likely due to combination of severe hyperglycemia and dehydration from DKA sepsis due to foot infection DM neuropathy HTN anemia, acute due to blood loss Plans: - admit to ICU - continue IV fluids aggressively - monitor lytes and AG - IV insulin drip for now until gap closes - endo eval - keep on Vancomycin and Zosyn - podiatry eval - d.w Wojciech Hernandez - likely will need debridement - MRI of foot ordered - endo eval for management of DM. - HgbA1c of 13.4 - Urology consulted for hypodensity in prostate - ? abscess, not likely. not much symptoms - lovenox for VTE - check iron panel, TSH - fall precautions - not much pain needs likely due to neuropathy 08/19/2022 - blood cultures showing MRSA - Echo ordered - continue Vancomycin/Clinda and Meropenem. Id following - podiatry planning for I D today. Surgery on hal farias if needed to further debride his lower leg vs amputation. - WBC improving - will type and cross for blood and transfuse i f less than 7 gms - d.w at bedside - patient and is aware that he may require amputation if his tissues are non viable - remains on Insulin drip. blood sugars in the 200-300 range. AG has closed. endocrine is following. - keep in ICU 08/20/2022 - s/p extensive I D of right foot. - tissue cx showing MRSA - follow echo results - WBC remains elevated - continue IV antibiotics - MRI of pelvis pending to eval prostate lesion - MRI of foot pending to eval for osteo. - wean off insulin drip. Subq insulin and slidi ng scale. endo following - pain controlled - will likely need wound vac and half-way IV a ntibiotic therapy - d/w at bedside - PT/OT 08/21/2022 - continue IV antibitoics - wound care with pulse lavage. will likely nee d wound vac at some point - off insulin drip - tolerating diet. d/c IV fluids - pain controlled - awaiting MRI of his foot and pelvis - fall precautions - transfer to floor 08/22/2022 - continue Vanco and Clinda IV - pulse lavage for wound care - pain control - blood sugars reasonably controlled - mobilize - fall precautions - follow hgb and transfuse as needed - awaiting floor transfer 08/23/2022 - transfuse blood for anemia. no overt blood lo ss - continue IV antibiotics - mobilize - pulse lavage to wound. ? wound vac - continue to monitor blood sugars - floor transfer - d/w 08/24/2022 - follow hgb and transfuse as needed - IV antibiotics - anesthesia consult for MRI - blood sugars ok - pulse lavage - await podiatry eval for wound care - ? wound vac - d.w at bedside 08/25/22 Continue abx (Dapto and Teflaro) as per ID Updated Urology on MRI resul ts, Dr. Bass will review images and discuss with family for possible prostate/seminal vesicle abs cess Cont wound care as per Podiatry, may have debrid ement today BP and BS well controlled K+ high, repeat level Hgb 7.3 stable Discussed with at bedside 08/26/2022 - hgb low. will transfuse 2 units - d.w Dr. Pedersen - patient has lost so much ti ssues in his foot that his potential for wound closure and usabilit y of his foot is poor. Recommendations made to proceed with BKA - continue to monitor blood sugars - IV antibitoics - wound care - urology planning for aspiration of prostatic cyst seen on MRI. PSA normal - OOB 08/27/22 s/p transfusion planned for BKA IV antibiotics Wound care DM - managed with insulin DVT prophylaxis 08/28/2022 - noted left leg swelling and pain - patient on Heparin SQ for VTE. will order sta t venous US - planning for right BKA today - continue IV antibiotics per ID - follow blood sugars closely - will need PT/OT and possible rehab post surge ry - d/w at bedside Electronically Signed by Wilbert Ramires MD on at 0806 RPT #:[id number] END OF REPORT 2022-08-27 20:10:00-00:[address] [facility] ([facility]) Podiatry Progress Note REPORT#:[id number] REPORT STATUS: Signed DATE:08/27/22 TIME: 2009 PATIENT: KARAM ROWLAND UNIT #: [id number] ROOM/BED: [facility] : 61 AGE: 56 SEX: M ATTEND: Mikayla Ramires MD ADM AUTHOR: Liam Pedersen DPM * ALL edits or amendments must be made on the [employer] document * Subjective Chief complaint: seen at bedside,. family memebers next to him denies having any pain foot covered and protected and offloaded drainage noted serosang. increased warmth Patient reports: no confusion, no cough, no dizziness, no fever, no heartburn, no itching Comments: changes position of oralia wraps left ankle to left foot Objective General VS: Last Documented: Result Date Time Pulse Ox 93 08/27 1900 B/P 158/72 08/27 1900 B/P Mean 104 08/27 1900 Pulse 87 08/27 1900 Resp 15 08/27 1900 Temp 36.9 08/27 1600 O2 Delivery Room air 08/26 2100 O2 Flow Rate 6 08/26 2038 PATIENT WEIGHT: Weight (lb): 157 Weight (oz): 10.09 Weight (kg): 71.500 Medications: Active Meds + DC'd Last 24 Hrs Insulin Glargine (Lantus/Semglee) 15 UNIT BEDTIM E SUBQ Acetaminophen (TYLENOL EXTRA STRENGTH) 1,000 MG PREOP ONCALL PO (CKD) Gabapentin (NEURONTIN) 200 MG PREOP ONCALL PO (C KD) Lactated Ringer's (LACTATED RINGERS) 1,000 ML NV EOP ONCALL IV Lidocaine HCl (LIDOCAINE HCL/PF) 2 ML PREOP ONCA LL LOCAL Lidocaine HCl (LIDOCAINE HCL/PF) 2 ML PREOP ONCA LL LOCAL Sodium Chloride (SODIUM CHLORIDE 0.9%) 500 ML NV EOP ONCALL IV Sodium Chloride (SODIUM CHLORIDE 0.9%) 500 ML NV EOP ONCALL IV Sodium Chloride (SODIUM CHLORIDE 0.9%) 1,000 ML PREOP ONCALL IV Sodium Chloride (SODIUM CHLORIDE) 5 ML ASDIR PRN IV Sodium Chloride (SODIUM CHLORIDE) 10 ML ASDIR NV N IV Sodium Chloride (SODIUM CHLORIDE 0.9%) 250 ML DIR PRN IV Meropenem (MEROPENEM) 500 MG Q6H IV Sterile Water (WATER FOR INJECTION) 10 ML Calcium Gluconate/Sodium Chloride (Calcium Gluco denny 1 GM/NS 50 mL) 50 ML ONCE ONE IV (DC) Sodium Polystyrene Sulfonate (KAYEXELATE) 30 GM ONCE ONE PO (DC) Diphenhydramine HCl (BENADRYL) 12.5 MG PACU ONCE PRN IV (DC) Fentanyl Citrate (SUBLIMAZE) 100 MCG PACU Q10MIN PRN PRN IV (DC) Fentanyl Citrate (SUBLIMAZE) 50 MCG PACU Q10MIN PRN PRN IV (DC) Hydralazine HCl (APRESOLINE) 5 MG PACU Q10MIN P RN PRN IV (DC) Hydrocodone Bitart/Acetaminophen (NORCO 5/325) 1 TAB PACU ONCE PO (DC) Hydromorphone HCl (DILAUDID) 1 MG PACU Q10MIN NV N PRN IV (DC) Hydromorphone HCl (DILAUDID) 0.5 MG PACU Q5MIN P RN PRN IV (DC) Insulin Human Lispro (HUMALOG) 0 PACU ONCE PRN S UBQ (DC) Labetalol HCl (LABETALOL HCL) 5 MG PACU Q10MIN P RN PRN IV (DC) Lactated Ringer's (LACTATED RINGERS) 1,000 ML .Q 24H IV (DC) Meperidine HCl (MEPERIDINE HCL/PF) 12.5 MG PACU ONCE PRN IV (DC) Morphine Sulfate (morphine SULFATE) 2 MG PACU Q1 0MIN PRN PRN IV (DC) Ondansetron HCl (ZOFRAN) 4 MG PACU ONCE PRN IV ( DC) Promethazine HCl (PHENERGAN) 25 MG PACU ONCE PRN PO (DC) Ropivacaine (NAROPIN 0.5% 150 MG/30mL) 150 MG DIR PRN LOCAL (DC) Tramadol HCl (ULTRAM) 50 MG PACU ONCE PO (DC) Ceftaroline Fosamil (TEFLARO) 600 MG Q8H IV (DC) Sodium Chloride (SODIUM CHLORIDE 0.9%) 100 ML Daptomycin (CUBICIN 500MG) 700 MG Q24H IV (CKD) Sodium Chloride (SODIUM CHLORIDE 0.9%) 50 ML Famotidine (PEPCID) 20 MG BID PO Lorazepam (ATIVAN) 1 MG ONCE PRN IV Sodium Chloride (SODIUM CHLORIDE) 0 ASDIR PRN IV Insulin Glargine (Lantus/Semglee) 25 UNIT BEDTI ME SUBQ (DC) Insulin Human Lispro (HUMALOG) 7 UNIT AC SUBQ Insulin Human Lispro (HUMALOG) 0 AC HS SUBQ Dextrose/Water (DEXTROSE 10% IN WATER) 125 ML DIR PRN IV (CKD) Dextrose/Water (DEXTROSE 10% IN WATER) 250 ML DIR PRN IV (CKD) Glucagon (GLUCAGON) 1 MG ASDIR PRN IM Dextrose/Water (Dextrose 10% 1,000 mL) 1,000 ML ASDIR IV Acetaminophen (TYLENOL) 650 MG Q6H PRN PRN PO Bisacodyl (DULCOLAX) 10 MG DAILY PRN PRN RECTAL Docusate Sodium (COLACE) 100 MG Q12H PRN PRN PO Ondansetron HCl (ZOFRAN) 4 MG Q6H PRN PRN IV Heparin Sodium (HEPARIN 5000 UNITS/ML) 5,000 UNI T Q8HR SUBQ I O: 24 hour I O ending at 0700: 04/05 0700 04/04 1900 Intake Total 85237.00 950.00 Output Total 66168 850 Balance -1845.00 100.00 Intake, IV 805.00 250.00 Intake, Oral 250 Intake, Other 9900 Intake, 700 Packed Cells Output, Other 9850 Output, Urine 2950 850 Patient 71.5 kg Weight Weight Bed scale Measurement Method Dietitian nutrition assessment The data set between the solid lines has been im ported from the dietitian's assessment. BMI Calculated: 25.4 Nutrition related diagnosis: Nutrition diagnosis details: Nutrition problem: Nutrition etiology: Nutrition signs and symptoms: Nutrition prescription: Dietitian name: Assessment completed: Physical Exam General appearance: alert, awake, oriented Wound/incision: Location: Right foot to right ankle. DP and PT pulses are very weak essentially nonp alpable. There is severe edema of the right foot to the right ankle, better. There is erythema of the right foot to the righ t ankle, much better. Not really any ascending lymphangitis past ther e. Crepitation is at the medial right hindfoot and the dorsal right midfoot are significantly less. There is no longer crepitation at the lateral r ight ankle. There is some bullae that are peeling medial an d lateral. Sensation is greatly decreased on the right janelle t. base of three wounds fibrotic. sero purulent drainage. bones and tendons exposed. Left foot has no ulcers but has OA changes at a nkle with some chronic edema. LE vascular pulse assess: Nonpalpable R posterior tibialis, Nonpalpable R dorsalis pedis Considered stroke alert: no Results Findings/Data: Laboratory Tests: 08/27 08/27 08/27 08/27 08/27 1825 1728 1147 0824 0533 Chemistry Sodium (134 - 147 mEq/L) 136 137 Potassium (3.4 - 5.0 mEq/L) 5.1 H 5.3 H Chloride (100 - 108 mEq/L) 109 H 110 H Carbon Dioxide (21 - 33 mEq/l) 20 L 20 L Anion Gap (0 - 20) 12 12 BUN (7 - 18 mg/dL) 30 H 33 H Creatinine (0.6 - 1.3 mg/dL) 1.2 1.2 Glomerular Filtr Rate (90 - 95) 70.1 L 70.1 L Glucose (70 - 110 mg/dL) 161 H 285 H POC Glucose (70 - 110 MG/DL) 148 H 244 H 294 H Calcium (8.0 - 10.5 mg/dL) 7.5 L 7.2 L Phosphorus (2.5 - 4.9 MG/DL) 5.4 H Magnesium (1.80 - 2.40 mg/dL) 1.94 Total Bilirubin (0.0 - 1.0 mg/dL) 0.40 AST (15 - 37 IUnit/L) 12 L ALT (30 - 65 IUnit/L) 9 L Total Alk Phosphatase (20 - 125 IUnit/L) 111 Total Protein (6.4 - 8.2 g/dL) 5.7 L Albumin (3.4 - 5.0 g/dL) 1.30 L 08/278 2041 Chemistry POC Glucose (70 - 110 MG/DL) 148 H Ionized Calcium Mitzi (1.09 - 1.30 MMOL/L) 1.08 L Hematology WBC (4.5 - 11.0 x10 3/uL) 15.9 H RBC (4.00 - 5.60 x10 6/uL) 3.07 L Hgb (12.5 - 16.9 g/dL) 8.6 L Hct (37.5 - 50.7 %) 25.9 L MCV (81.0 - 99.0 fL) 84.4 MCH (27.0 - 33.0 pg) 28.0 MCHC (33.0 - 37.0 g/dL) 33.2 RDW (11.5 - 14.5 %) 14.6 H Plt Count (150 - 400 x10 3/uL) 250 MPV (7.0 - 9.0 fL) 9.8 H Neut % (Auto) (56.0 - 77.0 %) 88.7 H Lymph % (Auto) (14.0 - 32.0 %) 7.0 L Boundary % (Auto) (4.8 - 9.0 %) 3.3 L Eos % (Auto) (0.3 - 3.7 %) 0.3 Baso % (Auto) (0.0 - 2.0 %) 0.1 Neut # (Auto) (2.0 - 7.6 x10 3/uL) 14.14 H Lymph # (Auto) (1.0 - 3.8 x10 3/uL) 1.11 Boundary # (Auto) (0.1 - 0.8 x10 3/uL) 0.52 Eos # (Auto) (0.0 - 0.2 x10 3/uL) 0.04 Baso # (Auto) (0.0 - 0.2 x10 3/uL) 0.02 Abs Immat Gran (auto) (0.00 - 0.03 x10 3/uL) 0. 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 IV antibiotics Monitor leukocytosis NIAS: minimal PVD right 08/18 wound culture: MRSA (This one is not accura te, it is of skin that was intact) 08/19 OR culture: MRSA blood cultures: MRSA Offloading boot ICU for now pulse lavage by physical therapy oralia wrap compression left ankle MRI: osteo plan for BKA right with Dr. Leroy tomorrow Electronically Signed by Liam Pedersen DPM on 0 08/27/22 at 2012 RPT #:[id number] END OF REPORT 2022-08-27 18:19:00-00:[address] [facility] ([facility]) Endocrinology Progress Note REPORT#:[id number] REPORT STATUS: Signed DATE:08/27/22 TIME: 1818 PATIENT: KARMA ROWLAND UNIT #: [id number] ROOM/BED: [place] [id number] : 61 AGE: 56 SEX: M ATTEND: Mikayla Ramires MD ADM AUTHOR: Braxton Chapin MD * ALL edits or amendments must be made on the [employer]/computer document * Subjective Patient reports: no complaints Objective General VS: Last Documented: Result Date Time Temp 36.7 04/ 1200 Pulse Ox 98 / 0545 B/P 138/68 04/ 0545 B/P Mean 94 / 0545 Pulse 83 / 0545 Resp 15 08/27 0545 O2 Delivery Room air 08/26 2100 O2 Flow Rate 6 08/26 2038 PATIENT WEIGHT: Weight (lb): 157 Weight (oz): 10.09 Weight (kg): 71.500 Medications: Active Meds + DC'd Last 24 Hrs Meropenem (MEROPENEM) 500 MG Q6H IV Sterile Water (WATER FOR INJECTION) 10 ML Calcium Gluconate/Sodium Chloride (Calcium Gluco denny 1 GM/NS 50 mL) 50 ML ONCE ONE IV (DC) Sodium Polystyrene Sulfonate (KAYEXELATE) 30 GM ONCE ONE PO (DC) Midazolam HCl (VERSED) 0 .STK-MED ONE .ROUTE (DC ) Diphenhydramine HCl (BENADRYL) 12.5 MG PACU ONCE PRN IV (DC) Fentanyl Citrate (SUBLIMAZE) 100 MCG PACU Q10MIN PRN PRN IV (DC) Fentanyl Citrate (SUBLIMAZE) 50 MCG PACU Q10MIN PRN PRN IV (DC) Hydralazine HCl (APRESOLINE) 5 MG PACU Q10MIN NV N PRN IV (DC) Hydrocodone Bitart/Acetaminophen (NORCO 5/325) 1 TAB PACU ONCE PO (DC) Hydromorphone HCl (DILAUDID) 1 MG PACU Q10MIN NV N PRN IV (DC) Hydromorphone HCl (DILAUDID) 0.5 MG PACU Q5MIN P RN PRN IV (DC) Insulin Human Lispro (HUMALOG) 0 PACU ONCE PRN S UBQ (DC) Labetalol HCl (LABETALOL HCL) 5 MG PACU Q10MIN P RN PRN IV (DC) Lactated Ringer's (LACTATED RINGERS) 1,000 ML .Q 24H IV (DC) Meperidine HCl (MEPERIDINE HCL/PF) 12.5 MG PACU ONCE PRN IV (DC) Morphine Sulfate (morphine SULFATE) 2 MG PACU Q1 0MIN PRN PRN IV (DC) Ondansetron HCl (ZOFRAN) 4 MG PACU ONCE PRN IV ( DC) Promethazine HCl (PHENERGAN) 25 MG PACU ONCE PRN PO (DC) Ropivacaine (NAROPIN 0.5% 150 MG/30mL) 150 MG DIR PRN LOCAL (DC) Tramadol HCl (ULTRAM) 50 MG PACU ONCE PO (DC) Dexamethasone Sodium Phosphate (DECADRON) 0 .STK -MED ONE .ROUTE (DC) Fentanyl Citrate (SUBLIMAZE) 0 .STK-MED ONE .ROU TE (DC) Lidocaine HCl (XYLOCAINE) 0 .STK-MED ONE .ROUTE (DC) Midazolam HCl (VERSED) 0 .STK-MED ONE .ROUTE (DC ) Ondansetron HCl (ZOFRAN) 0 .STK-MED ONE .ROUTE ( DC) Propofol (DIPRIVAN 200MG/20ML INJECTION) 20 ML . STK-MED ONE IV (DC) Ceftaroline Fosamil (TEFLARO) 600 MG Q8H IV (DC) Sodium Chloride (SODIUM CHLORIDE 0.9%) 100 ML Daptomycin (CUBICIN 500MG) 700 MG Q24H IV (CKD) Sodium Chloride (SODIUM CHLORIDE 0.9%) 50 ML Famotidine (PEPCID) 20 MG BID PO Lorazepam (ATIVAN) 1 MG ONCE PRN IV Sodium Chloride (SODIUM CHLORIDE) 0 ASDIR PRN IV Insulin Glargine (Lantus/Semglee) 25 UNIT BEDTIM E SUBQ Insulin Human Lispro (HUMALOG) 7 UNIT AC SUBQ Insulin Human Lispro (HUMALOG) 0 AC HS SUBQ Dextrose/Water (DEXTROSE 10% IN WATER) 125 ML DIR PRN IV (CKD) Dextrose/Water (DEXTROSE 10% IN WATER) 250 ML DIR PRN IV (CKD) Glucagon (GLUCAGON) 1 MG ASDIR PRN IM Dextrose/Water (Dextrose 10% 1,000 mL) 1,000 ML ASDIR IV Acetaminophen (TYLENOL) 650 MG Q6H PRN PRN PO Bisacodyl (DULCOLAX) 10 MG DAILY PRN PRN RECTAL Docusate Sodium (COLACE) 100 MG Q12H PRN PRN PO Ondansetron HCl (ZOFRAN) 4 MG Q6H PRN PRN IV Heparin Sodium (HEPARIN 5000 UNITS/ML) 5,000 UNI T Q8HR SUBQ Physical Exam General appearance: alert, awake Diagnosis, Assessment Plan Hospital course to date: Laboratory Tests: 08/27 08/27 08/27 08/27 1728 1147 0824 0533 Chemistry Sodium (134 - 147 mEq/L) 137 Potassium (3.4 - 5.0 mEq/L) 5.3 H Chloride (100 - 108 mEq/L) 110 H Carbon Dioxide (21 - 33 mEq/l) 20 L Anion Gap (0 - 20) 12 BUN (7 - 18 mg/dL) 33 H Creatinine (0.6 - 1.3 mg/dL) 1.2 Glomerular Filtr Rate (90 - 95) 70.1 L Glucose (70 - 110 mg/dL) 285 H POC Glucose (70 - 110 MG/DL) 148 H 244 H 294 H Calcium (8.0 - 10.5 mg/dL) 7.2 L Phosphorus (2.5 - 4.9 MG/DL) 5.4 H Magnesium (1.80 - 2.40 mg/dL) 1.94 Total Bilirubin (0.0 - 1.0 mg/dL) 0.40 AST (15 - 37 IUnit/L) 12 L ALT (30 - 65 IUnit/L) 9 L Total Alk Phosphatase (20 - 125 IUnit/L) 111 Total Protein (6.4 - 8.2 g/dL) 5.7 L Albumin (3.4 - 5.0 g/dL) 1.30 L 08/27 08/26 0418 2041 Chemistry POC Glucose (70 - 110 MG/DL) 148 H Ionized Calcium Mitzi (1.09 - 1.30 MMOL/L) 1.08 L Hematology WBC (4.5 - 11.0 x10 3/uL) 15.9 H RBC (4.00 - 5.60 x10 6/uL) 3.07 L Hgb (12.5 - 16.9 g/dL) 8.6 L Hct (37.5 - 50.7 %) 25.9 L MCV (81.0 - 99.0 fL) 84.4 MCH (27.0 - 33.0 pg) 28.0 MCHC (33.0 - 37.0 g/dL) 33.2 RDW (11.5 - 14.5 %) 14.6 H Plt Count (150 - 400 x10 3/uL) 250 MPV (7.0 - 9.0 fL) 9.8 H Neut % (Auto) (56.0 - 77.0 %) 88.7 H Lymph % (Auto) (14.0 - 32.0 %) 7.0 L Boundary % (Auto) (4.8 - 9.0 %) 3.3 L Eos % (Auto) (0.3 - 3.7 %) 0.3 Baso % (Auto) (0.0 - 2.0 %) 0.1 Neut # (Auto) (2.0 - 7.6 x10 3/uL) 14.14 H Lymph # (Auto) (1.0 - 3.8 x10 3/uL) 1.11 Boundary # (Auto) (0.1 - 0.8 x10 3/uL) 0.52 Eos # (Auto) (0.0 - 0.2 x10 3/uL) 0.04 Baso # (Auto) (0.0 - 0.2 x10 3/uL) 0.02 Abs Immat Gran (auto) (0.00 - 0.03 x10 3/uL) 0. 10 H Add Manual Diff NO Immature Gran % (0.0 - 2.0 %) 0.6 Nucleated RBC % (0 - 0 %) 0.0 Nucleated RBCs # (Man) (0.0 - 0.1 x10 3/uL) 0.0 0 Microbiology: Date/Time Procedure - Status Source Growth 08/26 2216 Wound Culture - RES ABSCESS GRAM NEGATIVE JAKOB 08/26 2216 Anaerobic Culture - RES ABSCESS 08/26 2216 Gram Stain - RES ABSCESS Laboratory Tests: 08/26 08/26 08/25 0906 0430 2007 Chemistry Sodium (134 - 147 mEq/L) 136 Potassium (3.4 - 5.0 mEq/L) 4.8 Chloride (100 - 108 mEq/L) 109 H Carbon Dioxide (21 - 33 mEq/l) 21 Anion Gap (0 - 20) 11 BUN (7 - 18 mg/dL) 32 H Creatinine (0.6 - 1.3 mg/dL) 1.1 Glomerular Filtr Rate (90 - 95) 77.8 L Glucose (70 - 110 mg/dL) 151 H POC Glucose (70 - 110 MG/DL) 163 H 113 H Calcium (8.0 - 10.5 mg/dL) 7.7 L Ionized Calcium Mitzi (1.09 - 1.30 MMOL/L) 1.11 Phosphorus (2.5 - 4.9 MG/DL) 4.6 Magnesium (1.80 - 2.40 mg/dL) 1.89 Total Bilirubin (0.0 - 1.0 mg/dL) 0.50 AST (15 - 37 IUnit/L) 19 ALT (30 - 65 IUnit/L) 11 L Total Alk Phosphatase (20 - 125 IUnit/L) 149 H Total Protein (6.4 - 8.2 g/dL) 5.5 L Albumin (3.4 - 5.0 g/dL) 1.30 L Hematology WBC (4.5 - 11.0 x10 3/uL) 17.7 H RBC (4.00 - 5.60 x10 6/uL) 2.44 L Hgb (12.5 - 16.9 g/dL) 6.7 L Hct (37.5 - 50.7 %) 20.4 L MCV (81.0 - 99.0 fL) 83.6 MCH (27.0 - 33.0 pg) 27.5 MCHC (33.0 - 37.0 g/dL) 32.8 L RDW (11.5 - 14.5 %) 14.7 H Plt Count (150 - 400 x10 3/uL) 253 MPV (7.0 - 9.0 fL) 9.9 H Neut % (Auto) (56.0 - 77.0 %) 87.5 H Lymph % (Auto) (14.0 - 32.0 %) 7.4 L Boundary % (Auto) (4.8 - 9.0 %) 3.9 L Eos % (Auto) (0.3 - 3.7 %) 0.5 Baso % (Auto) (0.0 - 2.0 %) 0.1 Neut # (Auto) (2.0 - 7.6 x10 3/uL) 15.49 H Lymph # (Auto) (1.0 - 3.8 x10 3/uL) 1.31 Boundary # (Auto) (0.1 - 0.8 x10 3/uL) 0.69 Eos # (Auto) (0.0 - 0.2 x10 3/uL) 0.08 Baso # (Auto) (0.0 - 0.2 x10 3/uL) 0.01 Abs Immat Gran (auto) (0.00 - 0.03 x10 3/uL) 0. 11 H Add Manual Diff NO Immature Gran % (0.0 - 2.0 %) 0.6 Nucleated RBC % (0 - 0 %) 0.0 Nucleated RBCs # (Man) (0.0 - 0.1 x10 3/uL) 0.0 0 Laboratory Tests: 08/25 08/25 08/25 08/25 1723 1111 1044 1044 Chemistry Potassium (3.4 - 5.0 mEq/L) 4.5 POC Glucose (70 - 110 MG/DL) 132 H 143 H Total Creatine Kinase (46 - 171 Units/L) 17 L Urines Urine Color (YEL/STRAW) YELLOW Urine Appearance (CLEAR) TURBID H Urine pH (5.0 - 7.0) 5.0 Ur Specific [place] (1.005 - 1.030) 1.012 Urine Protein (NEGATIVE) 2+ H Urine Glucose (UA) (NEGATIVE) NEGATIVE Urine Ketones (NEGATIVE) NEGATIVE Urine Blood (NEGATIVE) 2+ H Urine Nitrite (NEGATIVE) NEGATIVE Urine Bilirubin (NEGATIVE) NEGATIVE Urine Urobilinogen (0.2 - 1.0 mg/dL) 0.2 Ur Leukocyte Esterase (NEGATIVE) 3+ H Urine RBC (0 - 3 RBC/HPF) 21-50 Urine WBC (0 - 3 WBC/HPF) >50 H Ur Squamous Epith Cells (NONE SEEN /HPF) NONE S EEN Ur Transition Epith Cell (NONE SEEN /HPF) 3+ H Urine Bacteria (NONE SEEN /HPF) TRACE Urine Mucus (NONE SEEN /LPF) TRACE 08/25 08/25 08/24 0750 0707 2130 Chemistry Sodium (134 - 147 mEq/L) 135 Potassium (3.4 - 5.0 mEq/L) 5.4 H Chloride (100 - 108 mEq/L) 110 H Carbon Dioxide (21 - 33 mEq/l) 19 L Anion Gap (0 - 20) 11 BUN (7 - 18 mg/dL) 25 H Creatinine (0.6 - 1.3 mg/dL) 1.1 Glomerular Filtr Rate (90 - 95) 77.8 L Glucose (70 - 110 mg/dL) 162 H POC Glucose (70 - 110 MG/DL) 166 H 140 H Calcium (8.0 - 10.5 mg/dL) 7.3 L Ionized Calcium Mitzi (1.09 - 1.30 MMOL/L) 0.96 L Phosphorus (2.5 - 4.9 MG/DL) 4.5 Magnesium (1.80 - 2.40 mg/dL) 1.88 Total Bilirubin (0.0 - 1.0 mg/dL) 0.50 AST (15 - 37 IUnit/L) 40 H ALT (30 - 65 IUnit/L) 21 L Total Alk Phosphatase (20 - 125 IUnit/L) 159 H Total Protein (6.4 - 8.2 g/dL) 5.6 L Albumin (3.4 - 5.0 g/dL) 1.30 L Hematology WBC (4.5 - 11.0 x10 3/uL) 17.9 H RBC (4.00 - 5.60 x10 6/uL) 2.64 L Hgb (12.5 - 16.9 g/dL) 7.3 L Hct (37.5 - 50.7 %) 22.6 L MCV (81.0 - 99.0 fL) 85.6 MCH (27.0 - 33.0 pg) 27.7 MCHC (33.0 - 37.0 g/dL) 32.3 L RDW (11.5 - 14.5 %) 15.1 H Plt Count (150 - 400 x10 3/uL) 226 MPV (7.0 - 9.0 fL) 10.7 H Neut % (Auto) (56.0 - 77.0 %) 86.3 H Lymph % (Auto) (14.0 - 32.0 %) 8.1 L Boundary % (Auto) (4.8 - 9.0 %) 4.3 L Eos % (Auto) (0.3 - 3.7 %) 0.5 Baso % (Auto) (0.0 - 2.0 %) 0.1 Neut # (Auto) (2.0 - 7.6 x10 3/uL) 15.44 H Lymph # (Auto) (1.0 - 3.8 x10 3/uL) 1.45 Boundary # (Auto) (0.1 - 0.8 x10 3/uL) 0.77 Eos # (Auto) (0.0 - 0.2 x10 3/uL) 0.09 Baso # (Auto) (0.0 - 0.2 x10 3/uL) 0.02 Abs Immat Gran (auto) (0.00 - 0.03 x10 3/uL) 0. 13 H Add Manual Diff NO Immature Gran % (0.0 - 2.0 %) 0.7 Nucleated RBC % (0 - 0 %) 0.0 Nucleated RBCs # (Man) (0.0 - 0.1 x10 3/uL) 0.0 0 Microbiology: Date/Time Procedure - Status Source Growth 08/25 104 Urine Culture - WKST URINE 08/25 104 Blood Culture - RECD BLOOD 08/26 1043 Blood Culture - RECD BLOOD Laboratory Tests: 08/20 08/20 08/20 08/20 08/20 1107 0756 0647 0554 0454 Chemistry Sodium (134 - 147 mEq/L) 137 Potassium (3.4 - 5.0 mEq/L) 3.7 Chloride (100 - 108 mEq/L) 107 Carbon Dioxide (21 - 33 mEq/l) 20 L Anion Gap (0 - 20) 14 BUN (7 - 18 mg/dL) 44 H Creatinine (0.6 - 1.3 mg/dL) 1.2 Glomerular Filtr Rate (90 - 95) 70.1 L Glucose (70 - 110 mg/dL) 212 H POC Glucose (70 - 110 MG/DL) 173 H 192 H 206 H 198 H Calcium (8.0 - 10.5 mg/dL) 7.3 L Ionized Calcium Mitzi (1.09 - 1.30 MMOL/L) 1.04 L Phosphorus (2.5 - 4.9 MG/DL) 3.4 Magnesium (1.80 - 2.40 mg/dL) 2.05 Total Bilirubin (0.0 - 1.0 mg/dL) 0.60 AST (15 - 37 IUnit/L) 51 H ALT (30 - 65 IUnit/L) 22 L Total Alk Phosphatase (20 - 125 IUnit/L) 178 H Total Protein (6.4 - 8.2 g/dL) 5.7 L Albumin (3.4 - 5.0 g/dL) 2.00 L Hematology WBC (4.5 - 11.0 x10 3/uL) 22.8 H RBC (4.00 - 5.60 x10 6/uL) 2.63 L Hgb (12.5 - 16.9 g/dL) 7.1 L Hct (37.5 - 50.7 %) 21.3 L MCV (81.0 - 99.0 fL) 81.0 MCH (27.0 - 33.0 pg) 27.0 MCHC (33.0 - 37.0 g/dL) 33.3 RDW (11.5 - 14.5 %) 14.7 H Plt Count (150 - 400 x10 3/uL) 190 MPV (7.0 - 9.0 fL) 10.0 H Neut % (Auto) (56.0 - 77.0 %) 87.2 H Lymph % (Auto) (14.0 - 32.0 %) 4.8 L Boundary % (Auto) (4.8 - 9.0 %) 2.9 L Eos % (Auto) (0.3 - 3.7 %) 0.0 L Baso % (Auto) (0.0 - 2.0 %) 0.2 Neut # (Auto) (2.0 - 7.6 x10 3/uL) 19.90 H Lymph # (Auto) (1.0 - 3.8 x10 3/uL) 1.10 Boundary # (Auto) (0.1 - 0.8 x10 3/uL) 0.66 Eos # (Auto) (0.0 - 0.2 x10 3/uL) 0.00 Baso # (Auto) (0.0 - 0.2 x10 3/uL) 0.04 Abs Immat Gran (auto) (0.00 - 0.03 1.12 H x10 3/uL) Add Manual Diff NO Immature Gran % (0.0 - 2.0 %) 4.9 H Nucleated RBC % (0 - 0 %) 0.0 Nucleated RBCs # (Man) (0.0 - 0.1 0.00 x10 3/uL) 08/20 08/20 08/19 08/19 08/19 0259 0101 2352 2322 2310 Chemistry Sodium (134 - 147 mEq/L) 132 L Potassium (3.4 - 5.0 mEq/L) 3.7 Chloride (100 - 108 mEq/L) 107 Carbon Dioxide (21 - 33 mEq/l) 21 Anion Gap (0 - 20) 8 BUN (7 - 18 mg/dL) 41 H Creatinine (0.6 - 1.3 mg/dL) 1.2 Glomerular Filtr Rate (90 - 95) 70.1 L Glucose (70 - 110 mg/dL) 184 H POC Glucose (70 - 110 MG/DL) 195 H 181 H 182 H 191 H Calcium (8.0 - 10.5 mg/dL) 7.1 L Phosphorus (2.5 - 4.9 MG/DL) 3.3 Magnesium (1.80 - 2.40 mg/dL) 2.09 Albumin (3.4 - 5.0 g/dL) 1.70 L Hematology Hgb (12.5 - 16.9 g/dL) 7.0 L Hct (37.5 - 50.7 %) 21.8 L 08/19 165 Chemistry Sodium (134 - 147 mEq/L) 133 L Potassium (3.4 - 5.0 mEq/L) 3.6 Chloride (100 - 108 mEq/L) 105 Carbon Dioxide (21 - 33 mEq/l) 21 Anion Gap (0 - 20) 10 BUN (7 - 18 mg/dL) 45 H Creatinine (0.6 - 1.3 mg/dL) 1.2 Glomerular Filtr Rate (90 - 95) 70.1 L Glucose (70 - 110 mg/dL) 247 H POC Glucose (70 - 110 MG/DL) 165 H 209 H 218 H 219 H Calcium (8.0 - 10.5 mg/dL) 7.6 L Phosphorus (2.5 - 4.9 MG/DL) 3.0 Magnesium (1.80 - 2.40 mg/dL) 2.03 Albumin (3.4 - 5.0 g/dL) 1.40 L Hematology WBC (4.5 - 11.0 x10 3/uL) 20.3 H RBC (4.00 - 5.60 x10 6/uL) 2.57 L Hgb (12.5 - 16.9 g/dL) 7.1 L Hct (37.5 - 50.7 %) 20.9 L MCV (81.0 - 99.0 fL) 81.3 MCH (27.0 - 33.0 pg) 27.6 MCHC (33.0 - 37.0 g/dL) 34.0 RDW (11.5 - 14.5 %) 14.3 Plt Count (150 - 400 x10 3/uL) 197 MPV (7.0 - 9.0 fL) 10.2 H Neut % (Auto) (56.0 - 77.0 %) 88.7 H Lymph % (Auto) (14.0 - 32.0 %) 3.8 L Boundary % (Auto) (4.8 - 9.0 %) 3.7 L Eos % (Auto) (0.3 - 3.7 %) 0.0 L Baso % (Auto) (0.0 - 2.0 %) 0.3 Neut # (Auto) (2.0 - 7.6 x10 3/uL) 17.97 H Lymph # (Auto) (1.0 - 3.8 x10 3/uL) 0.76 L Boundary # (Auto) (0.1 - 0.8 x10 3/uL) 0.74 Eos # (Auto) (0.0 - 0.2 x10 3/uL) 0.00 Baso # (Auto) (0.0 - 0.2 x10 3/uL) 0.07 Abs Immat Gran (auto) (0.00 - 0.03 0.71 H x10 3/uL) Add Manual Diff NO Immature Gran % (0.0 - 2.0 %) 3.5 H Nucleated RBC % (0 - 0 %) 0.0 Nucleated RBCs # (Man) (0.0 - 0.1 0.00 x10 3/uL) 08/19 08/19 1622 1601 Chemistry POC Glucose (70 - 110 MG/DL) 232 H Urines Urine Color (YEL/STRAW) YELLOW Urine Appearance (CLEAR) SL CLOUDY Urine pH (5.0 - 7.0) 5.0 Ur Specific [place] (1.005 - 1.030) 1.013 Urine Protein (NEGATIVE) 1+ H Urine Glucose (UA) (NEGATIVE) 3+ H Urine Ketones (NEGATIVE) NEGATIVE Urine Blood (NEGATIVE) 2+ H Urine Nitrite (NEGATIVE) NEGATIVE Urine Bilirubin (NEGATIVE) NEGATIVE Urine Urobilinogen (0.2 - 1.0 mg/dL) 0.2 Ur Leukocyte Esterase (NEGATIVE) 3+ H Urine RBC (0 - 3 RBC/HPF) 4-10 Urine WBC (0 - 3 WBC/HPF) 21-50 H Ur Squamous Epith Cells (NONE SEEN /HPF) 0-5 Urine Bacteria (NONE SEEN /HPF) TRACE Urine Mucus (NONE SEEN /LPF) TRACE Microbiology: Date/Time Procedure - Status Source Growth 08/20 1457 Blood Culture - ORD BLOOD 08/20 145 Blood Culture - ORD BLOOD 08/19 1709 Blood Culture - ORD BLOOD 08/19 1709 Blood Culture - ORD BLOOD 08/19 1622 Urine Culture - RES URINE Laboratory Tests: 08/19 08/19 08/19 08/19 08/19 1338 1335 1233 1115 1115 Chemistry Sodium (134 - 147 mEq/L) 130 L Potassium (3.4 - 5.0 mEq/L) 3.6 Chloride (100 - 108 mEq/L) 107 Carbon Dioxide (21 - 33 mEq/l) 22 Anion Gap (0 - 20) 5 BUN (7 - 18 mg/dL) 39 H Creatinine (0.6 - 1.3 mg/dL) 1.1 Glomerular Filtr Rate (90 - 95) 77.8 L Glucose (70 - 110 mg/dL) 315 H POC Glucose (70 - 110 MG/DL) 340 H 363 H 326 H Calcium (8.0 - 10.5 mg/dL) 7.6 L Phosphorus (2.5 - 4.9 MG/DL) 2.2 L Magnesium (1.80 - 2.40 mg/dL) 2.06 B-Natriuretic Peptide (0 - 100 PG/ML) 96.0 Albumin (3.4 - 5.0 g/dL) 1.50 L 08/19 08/19 08/19 08/19 0805 0737 0737 0445 Chemistry Sodium (134 - 147 mEq/L) 130 L 130 L Potassium (3.4 - 5.0 mEq/L) 3.3 L 3.0 L Chloride (100 - 108 mEq/L) 103 102 Carbon Dioxide (21 - 33 mEq/l) 20 L 22 Anion Gap (0 - 20) 10 10 BUN (7 - 18 mg/dL) 42 H 43 H Creatinine (0.6 - 1.3 mg/dL) 1.2 1.3 Glomerular Filtr Rate (90 - 95) 70.1 L 63.7 L Glucose (70 - 110 mg/dL) 322 H 359 H POC Glucose (70 - 110 MG/DL) 292 H Calcium (8.0 - 10.5 mg/dL) 8.2 7.7 L Phosphorus (2.5 - 4.9 MG/DL) 2.6 2.9 Magnesium (1.80 - 2.40 mg/dL) 2.13 2.13 Iron (35 - 150 mcg/dL) 8 L TIBC (260 - 445 mcg/dL) 148 L % Saturation (14 - 34 %) 5.4 L Unsat Iron Binding (mcg/dL) 140 Ferritin (23.9 - 336.2 ng/mL) 2429.2 H Total Bilirubin (0.0 - 1.0 mg/dL) 0.60 AST (15 - 37 IUnit/L) 27 ALT (30 - 65 IUnit/L) 13 L Total Alk Phosphatase (20 - 125 IUnit/L) 150 H Total Protein (6.4 - 8.2 g/dL) 5.6 L Albumin (3.4 - 5.0 g/dL) 1.60 L 1.50 L Vitamin B12 (193 - 986 pg/mL) 5883 H Folate (3.1 - 17.5 ng/mL) 9.5 08/19 08/19 08/19 08/19 0340 0332 0330 0101 Chemistry POC Glucose (70 - 110 MG/DL) 332 H 296 H Hemoglobin A1c (4.8 - 6.0 %A1C) > 14.0 H Ionized Calcium Mitzi (1.09 - 1.30 MMOL/L) 1.07 L Hematology WBC (4.5 - 11.0 x10 3/uL) 21.3 H RBC (4.00 - 5.60 x10 6/uL) 2.80 L Hgb (12.5 - 16.9 g/dL) 7.6 L Hct (37.5 - 50.7 %) 22.3 L MCV (81.0 - 99.0 fL) 79.6 L MCH (27.0 - 33.0 pg) 27.1 MCHC (33.0 - 37.0 g/dL) 34.1 RDW (11.5 - 14.5 %) 14.0 Plt Count (150 - 400 x10 3/uL) 227 MPV (7.0 - 9.0 fL) 9.9 H Neut % (Auto) (56.0 - 77.0 %) 89.9 H Lymph % (Auto) (14.0 - 32.0 %) 4.3 L Boundary % (Auto) (4.8 - 9.0 %) 3.1 L Eos % (Auto) (0.3 - 3.7 %) 0.0 L Baso % (Auto) (0.0 - 2.0 %) 0.3 Neut # (Auto) (2.0 - 7.6 x10 3/uL) 19.17 H Lymph # (Auto) (1.0 - 3.8 x10 3/uL) 0.91 L Boundary # (Auto) (0.1 - 0.8 x10 3/uL) 0.67 Eos # (Auto) (0.0 - 0.2 x10 3/uL) 0.01 Baso # (Auto) (0.0 - 0.2 x10 3/uL) 0.07 Abs Immat Gran (auto) (0.00 - 0.03 x10 3/uL) 0. 51 H Add Manual Diff NO Immature Gran % (0.0 - 2.0 %) 2.4 H Nucleated RBC % (0 - 0 %) 0.0 Nucleated RBCs # (Man) (0.0 - 0.1 x10 3/uL) 0.0 0 08/18 08/18 08/18 08/18 2246 2157 1854 1653 Chemistry Sodium (134 - 147 mEq/L) 129 L Potassium (3.4 - 5.0 mEq/L) 3.3 L Chloride (100 - 108 mEq/L) 102 Carbon Dioxide (21 - 33 mEq/l) 20 L Anion Gap (0 - 20) 10 BUN (7 - 18 mg/dL) 44 H Creatinine (0.6 - 1.3 mg/dL) 1.3 Glomerular Filtr Rate (90 - 95) 63.7 L Glucose (70 - 110 mg/dL) 296 H POC Glucose (70 - 110 MG/DL) 265 H 226 H 223 H Calcium (8.0 - 10.5 mg/dL) 7.7 L Phosphorus (2.5 - 4.9 MG/DL) 2.8 Magnesium (1.80 - 2.40 mg/dL) 2.13 Albumin (3.4 - 5.0 g/dL) 1.70 L Microbiology: Date/Time Procedure - Status Source Growth 08/19 1209 Wound Culture - RES ABSCESS 08/19 121 Anaerobic Culture - RES ABSCESS 08/19 121 Gram Stain - RES ABSCESS Recent Impressions: ULTRASOUND - DUP LE ART UNI/LTD 08/19 0950 Report Impression - Status: SIGNED Entered: 08/19/2022 1056 IMPRESSION: No sonographic evidence for flow-limiting stenos is in the right lower extremity arterial system. Impression By: [email or web address] - Abraham Ross M.D. Laboratory Tests: 08/18 08/18 08/18 08/18 08/18 1430 1430 1404 1309 1203 Chemistry Sodium (134 - 147 mEq/L) 131 L Potassium (3.4 - 5.0 mEq/L) 3.4 Chloride (100 - 108 mEq/L) 101 Carbon Dioxide (21 - 33 mEq/l) 24 Anion Gap (0 - 20) 9 BUN (7 - 18 mg/dL) 58 H Creatinine (0.6 - 1.3 mg/dL) 1.4 H Glomerular Filtr Rate (90 - 95) 58.3 L Glucose (70 - 110 mg/dL) 207 H POC Glucose (70 - 110 MG/DL) 195 H 213 H 201 H Calcium (8.0 - 10.5 mg/dL) 7.8 L Phosphorus (2.5 - 4.9 MG/DL) 2.2 L Magnesium (1.80 - 2.40 mg/dL) 2.09 Albumin (3.4 - 5.0 g/dL) 1.60 L Triglycerides (40 - 150 mg/dL) 161 H Cholesterol (<200 mg/dL) 90 LDL Cholesterol Measurd (0 - 100 mg/dL) 33.0 HDL Cholesterol (32 - 72 mg/dL) < 20.0 L Cholesterol/HDL Ratio (3.43 - 4.97 4.00 RATIO) TSH (0.42 - 5.47) 0.96 Free T4 (0.77 - 1.61 ng/dL) 0.7 L 08/18 08/18 08/18 08/18 08/18 1107 1004 0900 0823 0549 Chemistry POC Glucose (70 - 110 MG/DL) 223 H 304 H 405 H 449 H Hemoglobin A1c (4.8 - 6.0 %A1C) 13.4 H 08/18 08/18 08/18 0549 0305 0207 Blood Gas Puncture Site R Radial O2 Saturation (90 - 100 %) 97.9 ABG pH (7.35 - 7.45) 7.309 L ABG pCO2 (35.0 - 45 mmHg) 22.3 *L ABG pO2 (80 - 100.0 mmHg) 108.0 H ABG PO2/FiO2 Ratio (mm/Hg) 514.28 ABG HCO3 (22.0 - 26.0 MMOL/L) 11.2 *L ABG Total CO2 11.9 ABG Base Excess (-4.0 - 4.0 MMOL/L) -15.1 L Neto Test Positive O2 Delivery Device Room Air FiO2 (%) 21 Chemistry Sodium (134 - 147 mEq/L) 121 *L Potassium (3.4 - 5.0 mEq/L) 4.1 Chloride (100 - 108 mEq/L) 90 L Carbon Dioxide (21 - 33 mEq/l) 15 L Anion Gap (0 - 20) 20 BUN (7 - 18 mg/dL) 62 H Creatinine (0.6 - 1.3 mg/dL) 1.7 H Glomerular Filtr Rate (90 - 95) 46.2 L Glucose (70 - 110 mg/dL) 692 *H Calcium (8.0 - 10.5 mg/dL) 7.5 L Phosphorus (2.5 - 4.9 MG/DL) 4.8 Magnesium (1.80 - 2.40 mg/dL) 2.34 Albumin (3.4 - 5.0 g/dL) 1.60 L Serology Influenza Type A (PCR) (Negative) Negative Influenza Type B (PCR) (Negative) Negative Toxicology Acetone, Quant (Neg - <20 mg/dL) Large - 80-100 mg/dL 08/18 08/18 08/18 0205 0203 0203 Chemistry Sodium (134 - 147 mEq/L) 115 *L Potassium (3.4 - 5.0 mEq/L) 4.4 Chloride (100 - 108 mEq/L) 84 L Carbon Dioxide (21 - 33 mEq/l) 14 L Anion Gap (0 - 20) 21 H BUN (7 - 18 mg/dL) 60 H Creatinine (0.6 - 1.3 mg/dL) 1.9 H Glomerular Filtr Rate (90 - 95) 40.4 L Glucose (70 - 110 mg/dL) 709 *H Lactic Acid (0.4 - 1.9 mmol/L) 1.2 Calcium (8.0 - 10.5 mg/dL) 8.5 Total Bilirubin (0.0 - 1.0 mg/dL) 0.40 Direct Bilirubin (0.0 - 0.30 MG/DL) 0.20 Indirect Bilirubin (MG/DL) 0.20 AST (15 - 37 IUnit/L) 14 L ALT (30 - 65 IUnit/L) 10 L Total Alk Phosphatase (20 - 125 IUnit/L) 157 H Troponin I High Sens (0 - 54 ng/L) 4 Total Protein (6.4 - 8.2 g/dL) 6.4 Albumin (3.4 - 5.0 g/dL) 1.80 L Lipase (13 - 57 U/L) 24 Hematology WBC (4.5 - 11.0 x10 3/uL) 26.5 H RBC (4.00 - 5.60 x10 6/uL) 3.36 L Hgb (12.5 - 16.9 g/dL) 9.0 L Hct (37.5 - 50.7 %) 28.3 L MCV (81.0 - 99.0 fL) 84.2 MCH (27.0 - 33.0 pg) 26.8 L MCHC (33.0 - 37.0 g/dL) 31.8 L RDW (11.5 - 14.5 %) 14.5 Plt Count (150 - 400 x10 3/uL) 355 MPV (7.0 - 9.0 fL) 9.9 H Add Manual Diff YES Seg Neutrophils % (37 - 69 %) 70.0 H Band Neutrophils % (0.0 - 10.0 %) 12.7 H Lymphocytes % (Manual) (23 - 55 %) 3.7 L Monocytes % (Manual) (0 - 10 %) 9.1 Metamyelocytes (0.0 - 0.0 %) 2.7 H Myelocytes (0.0 - 0.0 %) 0.9 H Promyelocytes (0 - 0 %) 0.9 H Platelet Estimate (ADEQUATE THOUSAND) Adequate Plt Morphology Comment NORMAL Polychromasia 3+ Poikilocytosis 3+ Anisocytosis 1+ Macrocytosis 1+ Serology SARS-CoV-2 Ag (Rapid) (Negative) Negative Toxicology Salicylates (0.0 - 20.0 mg/dL) 5.6 Microbiology: Date/Time Procedure - Status Source Growth 08/18 914 Wound Culture - ORD FOOT 08/18 206 Wound Culture - RECD FOOT 08/18 206 Group A Streptococcus Screen (VERONICA) - COMP THROAT 08/18 206 Streptococcus Culture - COMP THROAT 08/18 202 Blood Culture - RES BLOOD 08/18 202 Blood Culture Gram Stain - RES BLOOD 08/18 202 Blood Culture - RES BLOOD 08/18 202 Blood Culture Gram Stain - RES BLOOD Recent Impressions: RADIOLOGY - XR CHEST 2 V 08/18 200 Report Impression - Status: SIGNED Entered: 08/18/2022 0317 IMPRESSION: Ill-defined somewhat nodular opacity measuring 3 .2 cm laterally in the right mid lung suspicious for rounded pneumo ro given provided history, but underlying neoplasm can not be excl uded. Followup radiographs are recommended after appropriate tr eatment in order to document complete resolution and exclude an unde rlying process or neoplasm. Impression By: [email or web address] Cr Adams M.D. RADIOLOGY - XR FOOT 3 + V RT 08/18 0238 Report Impression - Status: SIGNED Entered: 08/18/2022 0358 IMPRESSION: No acute osseous findings. No convincing evidenc e for osteomyelitis. MRI is more sensitive for detecti ng osteomyelitis. Impression By: Ankur Ladd M.D. CAT SCAN - CT ABD PELVIS W/CONT 08/18 0339 Report Impression - Status: SIGNED Entered: 08/18/2022 0546 IMPRESSION: 3.3 cm hypodensity in the left posterior prostat e or seminal vesicle. This could represent an abscess. Contra st-enhanced MRI of the pelvis would be helpful for further evaluati on. No acute intra-abdominal findings otherwise. Impression By: Ankur Ladd M.D. CAT SCAN - CT LOWER EXTRM W/O C RT 08/18 0645 Report Impression - Status: SIGNED Entered: 08/18/2022 0827 IMPRESSION: Extensive soft tissue edema with mottled gas in the subcutaneous and intramuscular compartments of the foot abhishek tible with gas-forming infection. Disease extends into the visualized distal leg. Impression By: Jamel Dorantes M.D. 1. Diabetes mellitus type 2 uncontrolled with co mplications. 2. DKA 3. Cellulitis and gangrene of the right foot. 4. Sepsis 5. Altered mental status 6. High LFTs Blood sugar 285-294 mg/dL. HbA1c 13.4% White count 17.9 Sodium 121. Adjust insulin dose. Wound care and IV antibiotics. For wound debridement. Electronically Signed by Braxton Chapin MD on 10/14 at 1820 RPT #:[id number] END OF REPORT 2022-08-27 16:51:00-00:00 [facility] ([facility]) Orthopaedic Progress Note REPORT#:[id number] REPORT STATUS: Signed DATE:08/27/22 TIME: 1650 PATIENT: KARMA ROWLAND UNIT #: [id number] ROOM/BED: [address] : 63 AGE: 56 SEX: M ATTEND: Mikayla Ramires MD ADM AUTHOR: Nixon Leroy MD * ALL edits or amendments must be made on the [employer]/computer document * Subjective Chief complaint: right foot/ankle infection HPI: 56 yo male evaluated at bedside. He is pending s urgery tomorrow for a right below-knee amputation. Patient did receive 2 uni ts of PRBCs for a low hemoglobin. He reports doing well. Family at bed side. Objective VS: Last Documented: Result Date Time Temp 36.7 08/27 1200 Pulse Ox 98 08/27 0545 B/P 138/68 08/27 0545 B/P Mean 94 08/27 0545 Pulse 83 08/27 0545 Resp 15 08/27 0545 O2 Delivery Room air 08/26 2100 O2 Flow Rate 6 08/26 2038 PATIENT WEIGHT: Weight (lb): 157 Weight (oz): 10.09 Weight (kg): 71.500 Physical Exam General appearance: alert, awake, oriented Ankle-right: multiple open surgical inci keisha to the medial, lateral and dorums of foot. lateral wound extends to lateral ankle. The lateral wounds have demarcated. packing in place. able to weakly fle x/ext toes/ankle. sensory and vascular exam limited due to extensive soft tiss ue damage and surgery Considered stroke alert: no Results Findings/data: Laboratory Tests 08/27 08/27 08/27 08/27 1147 0824 0533 0418 Chemistry Sodium (134 - 147 mEq/L) 137 Potassium (3.4 - 5.0 mEq/L) 5.3 H Chloride (100 - 108 mEq/L) 110 H Carbon Dioxide (21 - 33 mEq/l) 20 L Anion Gap (0 - 20) 12 BUN (7 - 18 mg/dL) 33 H Creatinine (0.6 - 1.3 mg/dL) 1.2 Glomerular Filtr Rate (90 - 95) 70.1 L Glucose (70 - 110 mg/dL) 285 H POC Glucose (70 - 110 MG/DL) 244 H 294 H Calcium (8.0 - 10.5 mg/dL) 7.2 L Ionized Calcium Mitzi (1.09 - 1.30 MMOL/L) 1.08 L Phosphorus (2.5 - 4.9 MG/DL) 5.4 H Magnesium (1.80 - 2.40 mg/dL) 1.94 Total Bilirubin (0.0 - 1.0 mg/dL) 0.40 AST (15 - 37 IUnit/L) 12 L ALT (30 - 65 IUnit/L) 9 L Total Alk Phosphatase (20 - 125 IUnit/L) 111 Total Protein (6.4 - 8.2 g/dL) 5.7 L Albumin (3.4 - 5.0 g/dL) 1.30 L 08/26 1739 Chemistry POC Glucose (70 - 110 MG/DL) 148 H 169 H Laboratory Tests 08/27 0418 Hematology WBC (4.5 - 11.0 x10 3/uL) 15.9 H RBC (4.00 - 5.60 x10 6/uL) 3.07 L Hgb (12.5 - 16.9 g/dL) 8.6 L Hct (37.5 - 50.7 %) 25.9 L MCV (81.0 - 99.0 fL) 84.4 MCH (27.0 - 33.0 pg) 28.0 MCHC (33.0 - 37.0 g/dL) 33.2 RDW (11.5 - 14.5 %) 14.6 H Plt Count (150 - 400 x10 3/uL) 250 MPV (7.0 - 9.0 fL) 9.8 H Neut % (Auto) (56.0 - 77.0 %) 88.7 H Lymph % (Auto) (14.0 - 32.0 %) 7.0 L Boundary % (Auto) (4.8 - 9.0 %) 3.3 L Eos % (Auto) (0.3 - 3.7 %) 0.3 Baso % (Auto) (0.0 - 2.0 %) 0.1 Neut # (Auto) (2.0 - 7.6 x10 3/uL) 14.14 H Lymph # (Auto) (1.0 - 3.8 x10 3/uL) 1.11 Boundary # (Auto) (0.1 - 0.8 x10 3/uL) 0.52 Eos # (Auto) (0.0 - 0.2 x10 3/uL) 0.04 Baso # (Auto) (0.0 - 0.2 x10 3/uL) 0.02 Abs Immat Gran (auto) (0.00 - 0.03 x10 3/uL) 0. 10 H Add Manual Diff NO Immature Gran % (0.0 - 2.0 %) 0.6 Nucleated RBC % (0 - 0 %) 0.0 Nucleated RBCs # (Man) (0.0 - 0.1 x10 3/uL) 0.0 0 Diagnosis, Assessment Plan Free text A P: 56 yo male with hx of DM and gas gangrene to rig ht foot and ankle s/p I D. 1. N.p.o. after midnight. Plan for OR on 3. 2. NWB RLE 3. Continue local wound care. 4. Continue antibiotics per ID recommendations. 5. DVT prophylaxis. 6. Elevate extremity when at rest, offload heels . 7. Type and screen. 8. Anesthesia preop evaluation 9. Plan is for right below-knee amputation. Disc ussed risk benefits alternative surgery. Risk include but no t limited to pain, bleeding, damage to neurovascular structures, wo und dehiscence, wound infection, need for procedures anesthetic complications. Benefits include infec tion source control. Alternatives include no surg augustin which is not indicated for this grossly affected right foot and ankle from ga s gangrene. All question and concerns addressed. We will plan for surgery on 08/28/2022. Electronically Signed by Nixon Leroy MD on 10/14 at 1654 RPT #:[id number] END OF REPORT 2022-08-27 15:20:00-00:[address] [facility] ([facility]) Hospitalist Progress Note REPORT#:[id number] REPORT STATUS: Signed DATE:08/27/22 TIME: 1520 PATIENT: KARMA ROWLAND UNIT #: [id number] ROOM/BED: [facility] : 63 AGE: 56 SEX: M ATTEND: Mikayla Ramires MD ADM AUTHOR: Musa Enriquez MD * ALL edits or amendments must be made on the el [employer]/computer document * Subjective Chief complaint: AMS and right foot infection. s/p extensive debridement. No acute issues. Review of Systems All systems rev neg: except as noted Objective General VS/I O: Vital Signs: Date Time Temp Pulse Resp B/P B/P Pulse O2 O2 Flow FiO2 Mean Ox Delivery Rate 04/05 1200 36.7 04/05 0800 36.7 04/05 0545 83 15 138/68 94 98 04/05 0530 85 16 132/69 92 98 04/05 0515 82 11 122/61 86 98 04/05 0500 82 13 125/60 85 99 04/05 0445 83 12 127/59 84 99 04/05 0430 83 13 130/63 91 100 04/05 0429 83 13 100 04/05 0415 84 16 132/63 90 98 04/05 0400 84 15 139/65 93 100 04/05 0345 81 12 122/62 87 99 04/05 0330 83 13 133/65 92 99 04/05 0315 82 12 121/61 86 98 04/05 0300 81 12 127/61 88 99 04/05 0245 81 11 131/63 88 99 04/05 0230 82 12 124/60 86 99 04/05 0215 83 11 119/60 84 98 04/05 0200 82 14 122/59 83 99 04/05 0145 83 12 136/65 93 98 04/05 0134 83 11 98 04/05 0130 84 12 136/61 90 99 04/05 0115 84 12 139/66 95 99 04/05 0100 36.6 04/05 0100 83 13 139/64 90 100 04/05 0049 84 13 100 04/05 0045 84 12 133/66 92 100 04/05 0034 83 11 99 04/05 0030 84 12 140/68 99 100 04/05 0019 83 11 100 04/05 0015 84 11 147/71 102 100 04/05 0004 83 11 100 04/05 0000 83 10 149/71 102 100 04/04 2349 84 11 100 04/04 2345 84 11 153/66 102 100 04/04 2334 86 12 100 04/04 2330 88 14 155/72 106 100 04/04 2315 93 16 157/77 110 100 04/04 2300 86 14 142/55 94 99 04/04 2245 89 15 155/76 109 100 04/04 2230 91 20 175/80 116 100 04/04 2215 92 16 159/80 113 99 04/04 2200 90 18 153/75 107 100 04/04 2149 85 18 99 04/04 2145 86 19 153/74 106 98 04/04 2130 82 14 148/71 102 99 04/04 2119 82 04/04 2115 81 15 137/67 96 98 04/04 2112 81 12 137/65 94 97 04/04 2110 96 04/04 2103 79 15 99 04/04 2100 36.8 79 13 139/67 95 99 Room air 04/04 2055 79 12 133/63 90 99 04/04 2050 79 15 126/62 86 96 04/04 2050 79 15 126/62 96 04/04 2049 79 14 95 04/04 2045 78 17 129/65 90 100 04/04 2045 78 17 129/65 100 04/04 2040 78 9 128/67 91 100 04/04 9 Simple 6 mask 04/04 2035 78 12 128/61 85 100 04/04 2000 36.8 04/04 1915 87 17 152/72 105 100 04/04 1900 87 18 156/74 106 100 04/04 1845 85 11 154/74 107 99 04/04 1844 85 10 147/70 102 99 04/04 1843 36.8 86 13 147/70 99 04/04 1830 124 19 160/72 104 97 04/04 1815 85 10 155/67 106 99 04/04 1800 87 24 142/88 109 99 04/04 1745 86 12 155/89 118 99 04/04 1731 88 15 146/107 123 98 04/04 1715 86 15 152/75 107 99 04/04 1700 87 16 150/74 106 100 04/04 1645 85 14 164/75 108 100 04/04 1630 86 13 159/75 108 100 04/04 1615 84 12 134/61 88 99 04/04 1613 36.7 87 14 138/63 100 04/04 1611 86 12 138/63 91 100 04 1600 36.6 04 1600 85 12 170/76 109 100 08/26 1553 36.6 86 14 151/74 100 04 1549 36.6 85 14 151/74 100 04/04 1545 86 15 151/74 106 100 08/26 1530 86 31 168/71 102 98 24 hour I O ending at 0700: 08/27 0700 08/26 1900 Intake Total 63518.00 950.00 Output Total 50301 850 Balance -1845.00 100.00 Intake, IV 805.00 250.00 Intake, Oral 250 Intake, Other 9900 Intake, 700 Packed Cells Output, Other 9850 Output, Urine 2950 850 Patient 71.5 kg Weight Weight Bed scale Measurement Method PATIENT WEIGHT: Weight (lb): 157 Weight (oz): 10.09 Weight (kg): 71.500 Medications: Active Meds + DC'd Last 24 Hrs Meropenem (MEROPENEM) 500 MG Q6H IV Sterile Water (WATER FOR INJECTION) 10 ML Calcium Gluconate/Sodium Chloride (Calcium Gluco denny 1 GM/NS 50 mL) 50 ML ONCE ONE IV (DC) Sodium Polystyrene Sulfonate (KAYEXELATE) 30 GM ONCE ONE PO (DC) Midazolam HCl (VERSED) 0 .STK-MED ONE .ROUTE (DC ) Diphenhydramine HCl (BENADRYL) 12.5 MG PACU ONCE PRN IV (DC) Fentanyl Citrate (SUBLIMAZE) 100 MCG PACU Q10MIN PRN PRN IV (DC) Fentanyl Citrate (SUBLIMAZE) 50 MCG PACU Q10MIN PRN PRN IV (DC) Hydralazine HCl (APRESOLINE) 5 MG PACU Q10MIN NV N PRN IV (DC) Hydrocodone Bitart/Acetaminophen (NORCO 5/325) 1 TAB PACU ONCE PO (DC) Hydromorphone HCl (DILAUDID) 1 MG PACU Q10MIN NV N PRN IV (DC) Hydromorphone HCl (DILAUDID) 0.5 MG PACU Q5MIN P RN PRN IV (DC) Insulin Human Lispro (HUMALOG) 0 PACU ONCE PRN S UBQ (DC) Labetalol HCl (LABETALOL HCL) 5 MG PACU Q10MIN PRN PRN IV (DC) Lactated Ringer's (LACTATED RINGERS) 1,000 ML .Q 24H IV (DC) Meperidine HCl (MEPERIDINE HCL/PF) 12.5 MG PACU ONCE PRN IV (DC) Morphine Sulfate (morphine SULFATE) 2 MG PACU Q1 0MIN PRN PRN IV (DC) Ondansetron HCl (ZOFRAN) 4 MG PACU ONCE PRN IV ( DC) Promethazine HCl (PHENERGAN) 25 MG PACU ONCE PRN PO (DC) Ropivacaine (NAROPIN 0.5% 150 MG/30mL) 150 MG DIR PRN LOCAL (DC) Tramadol HCl (ULTRAM) 50 MG PACU ONCE PO (DC) Dexamethasone Sodium Phosphate (DECADRON) 0 .STK -MED ONE .ROUTE (DC) Fentanyl Citrate (SUBLIMAZE) 0 .STK-MED ONE .ROU TE (DC) Lidocaine HCl (XYLOCAINE) 0 .STK-MED ONE .ROUTE (DC) Midazolam HCl (VERSED) 0 .STK-MED ONE .ROUTE (DC ) Ondansetron HCl (ZOFRAN) 0 .STK-MED ONE .ROUTE ( DC) Propofol (DIPRIVAN 200MG/20ML INJECTION) 20 ML . STK-MED ONE IV (DC) Ceftaroline Fosamil (TEFLARO) 600 MG Q8H IV (DC) Sodium Chloride (SODIUM CHLORIDE 0.9%) 100 ML Daptomycin (CUBICIN 500MG) 700 MG Q24H IV (CKD) Sodium Chloride (SODIUM CHLORIDE 0.9%) 50 ML Famotidine (PEPCID) 20 MG BID PO Lorazepam (ATIVAN) 1 MG ONCE PRN IV Sodium Chloride (SODIUM CHLORIDE) 0 ASDIR PRN IV Insulin Glargine (Lantus/Semglee) 25 UNIT BEDTIM E SUBQ Insulin Human Lispro (HUMALOG) 7 UNIT AC SUBQ Insulin Human Lispro (HUMALOG) 0 AC HS SUBQ Dextrose/Water (DEXTROSE 10% IN WATER) 125 ML DIR PRN IV (CKD) Dextrose/Water (DEXTROSE 10% IN WATER) 250 ML DIR PRN IV (CKD) Glucagon (GLUCAGON) 1 MG ASDIR PRN IM Dextrose/Water (Dextrose 10% 1,000 mL) 1,000 ML ASDIR IV Acetaminophen (TYLENOL) 650 MG Q6H PRN PRN PO Bisacodyl (DULCOLAX) 10 MG DAILY PRN PRN RECTAL Docusate Sodium (COLACE) 100 MG Q12H PRN PRN PO Ondansetron HCl (ZOFRAN) 4 MG Q6H PRN PRN IV Heparin Sodium (HEPARIN 5000 UNITS/ML) 5,000 UNI T Q8HR SUBQ Physical Exam Head/Eyes: normocephalic ENT: moist mucosal membranes Neck: no JVD Cardiovascular: regular rate rhythm, no heave Respiratory: aerating well, clear to auscultatio n, symmetric expansion, no distress Abdomen: non-tender, normal bowel sounds, soft, no distention Genitourinary: no bladder distention Extremities: R foot in dressing 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 X 3, 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 Considered stroke alert: no Skin: no rash Psychiatry: normal affect, normal judgment/insig ht, normal mood Diagnosis, Assessment Plan Free Text DxA P Notes Free text DxA P notes: DKA DM 2, poorly controlled severe gas gangrene, right foot/necrotizing fasc itis MRSA bacteremia ERIKA severe hyponatremia likely due to combination of severe hyperglycemia and dehydration from DKA sepsis due to foot infection DM neuropathy HTN anemia, acute due to blood loss Plans: - admit to ICU - continue IV fluids aggressively - monitor lytes and AG - IV insulin drip for now until gap closes - endo eval - keep on Vancomycin and Zosyn - podiatry eval - d.w Wojciech Hernandez - likely will need debridement - MRI of foot ordered - endo eval for management of DM. - HgbA1c of 13.4 - Urology consulted for hypodensity in prostate - ? abscess, not likely. not much symptoms - lovenox for VTE - check iron panel, TSH - fall precautions - not much pain needs likely due to neuropathy 08/19/2022 - blood cultures showing MRSA - Echo ordered - continue Vancomycin/Clinda and Meropenem. Id following - podiatry planning for I D today. Surgery on s dinora if needed to further debride his lower leg vs amputation. - WBC improving - will type and cross for blood and transfuse i f less than 7 gms - d.w at bedside - patient and is aware that he may require amputation if his tissues are non viable - remains on Insulin drip. blood sugars in the 200-300 range. AG has closed. endocrine is following. - keep in ICU 08/20/2022 - s/p extensive I D of right foot. - tissue cx showing MRSA - follow echo results - WBC remains elevated - continue IV antibiotics - MRI of pelvis pending to eval prostate lesion - MRI of foot pending to eval for osteo. - wean off insulin drip. Subq insulin and slidi ng scale. endo following - pain controlled - will likely need wound vac and half-way IV a ntibiotic therapy - d/w at bedside - PT/OT 08/21/2022 - continue IV antibitoics - wound care with pulse lavage. will likely nee d wound vac at some point - off insulin drip - tolerating diet. d/c IV fluids - pain controlled - awaiting MRI of his foot and pelvis - fall precautions - transfer to floor 08/22/2022 - continue Vanco and Clinda IV - pulse lavage for wound care - pain control - blood sugars reasonably controlled - mobilize - fall precautions - follow hgb and transfuse as needed - awaiting floor transfer 08/23/2022 - transfuse blood for anemia. no overt blood lo ss - continue IV antibiotics - mobilize - pulse lavage to wound. ? wound vac - continue to monitor blood sugars - floor transfer - d/w 08/24/2022 - follow hgb and transfuse as needed - IV antibiotics - anesthesia consult for MRI - blood sugars ok - pulse lavage - await podiatry eval for wound care - ? wound vac - d.w at bedside 08/25/22 Continue abx (Dapto and Teflaro) as per ID Updated Urology on MRI resul ts, Dr. Bass will review images and discuss with family for possible prostate/seminal vesicle abs cess Cont wound care as per Podiatry, may have debrid ement today BP and BS well controlled K+ high, repeat level Hgb 7.3 stable Discussed with at bedside 08/26/2022 - hgb low. will transfuse 2 units - d.w Dr. Pedersen - patient has lost so much ti ssues in his foot that his potential for wound closure and usabilit y of his foot is poor. Recommendations made to proceed with BKA - continue to monitor blood sugars - IV antibitoics - wound care - urology planning for aspiration of prostatic cyst seen on MRI. PSA normal - OOB 08/27/22 s/p transfusion planned for BKA IV antibiotics Wound care DM - managed with insulin DVT prophylaxis Electronically Signed by Musa Enriquez MD on 0 08/27/22 at 1522 RPT #:[id number] END OF REPORT 2022-08-27 15:13:00-00:[address] [facility] ([facility]) Infectious Dis. Progress Note REPORT#:[id number] REPORT STATUS: Signed DATE:08/27/22 TIME: 151 PATIENT: KARMA ROWLAND UNIT #: [id number] ROOM/BED: [place] [address] : 61 AGE: 56 SEX: M ATTEND: Mikayla Ramires MD ADM AUTHOR: Merry Wolff MD * ALL edits or amendments must be made on the [employer]/computer document * Subjective Chief complaint: Follow-up on MRSA bacteremia, right lower extrem ity necrotizing soft tissue infection. HPI: PT is a 56yr old male with h istory of diabetes mellitus type 2, hypertension who was admitted with altered mental status and righ t-sided foot infection. According to him, he noticed a blister on his right foot around 3 days prior to presentation. His foot got progressively more sw ollen and erythema extended proximally to his lateral foot and ankle. CT abd omen and pelvis with contrast is concerning for possible prostate abscess. CT of lower extremity without contrast shows extensive sof t tissue edema with mottled gas in the subcutaneous and intramuscular compartments of the foot, comp atible with gas-forming infection. Patient's blood cultures have come ba ck positive for MRSA in 2 out of 2 sets. PT has had persistent (+)Ve cx for MR 08/18- 08/22. He underwent a debridement of his foot on 08/19 and cx g rew MRSA. PT was started on Vancomycin and clindamycin on 08/18. His MRI showed a prosta te abscess. 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 08/25 PT is afebrile, his WBX is 17.9, he is awake and alert. at the bedside 08/26 plan for transrectal asp iration today and BKA on 08/28, pt is afebrile, WBC is 17.7, blood cx sent on 08/25 still positive, urine cx sent on 08/25 contaminated 08/27 s/p transrectal aspirati on and unroofing of prostate abscess 08/26, aspiration cx growing GNR, pt is afebrile, WBC down to 15.9 from 17.7, Patient reports: Yes: pain controlled. No: cough, diarrhea, fever , headache, nausea, shortness of breath, vomiting. Portions of this section wer e scribed by Jill Quintero on 08/27/22 at 1513 Objective General VS/I O: Vital Signs Date Temp Pulse Resp B/P B/P Mean Pulse Ox FiO2 /-08/27 97.8-98.2 78-124 9-31 119-175/55-10 7 83-123 95-100 Last Documented: Result Date Time Temp 98.1 04/ 1200 Pulse Ox 98 04/05 0545 B/P 138/68 04/05 0545 B/P Mean 94 04/05 0545 Pulse 83 04/05 0545 Resp 15 04/05 0545 O2 Delivery Room air 08/26 2100 O2 Flow Rate 6 08/26 2038 Vital Signs: Date Time Temp Pulse Resp B/P B/P Pulse O2 O2 F low FiO2 Mean Ox Delivery Rate 04/05 1200 98.1 04/05 0800 98.0 04/05 0545 83 15 138/68 94 98 04/05 0530 85 16 132/69 92 98 04/05 0515 82 11 122/61 86 98 04/05 0500 82 13 125/60 85 99 04/05 0445 83 12 127/59 84 99 04/05 0430 83 13 130/63 91 100 04/05 0429 83 13 100 04/05 0415 84 16 132/63 90 98 04/05 0400 84 15 139/65 93 100 04/05 0345 81 12 122/62 87 99 04/05 0330 83 13 133/65 92 99 04/05 0315 82 12 121/61 86 98 04/05 0300 81 12 127/61 88 99 04/05 0245 81 11 131/63 88 99 04/05 0230 82 12 124/60 86 99 04/05 0215 83 11 119/60 84 98 04/05 0200 82 14 122/59 83 99 04/05 0145 83 12 136/65 93 98 04/05 0134 83 11 98 04/05 0130 84 12 136/61 90 99 04/05 0115 84 12 139/66 95 99 04/05 0100 97.8 04/05 0100 83 13 139/64 90 100 04/05 0049 84 13 100 04/05 0045 84 12 133/66 92 100 04/05 0034 83 11 99 04/05 0030 84 12 140/68 99 100 04/05 0019 83 11 100 04/05 0015 84 11 147/71 102 100 04/05 0004 83 11 100 04/05 0000 83 10 149/71 102 100 04/04 2349 84 11 100 04/04 2345 84 11 153/66 102 100 04/04 2334 86 12 100 04/04 2330 88 14 155/72 106 100 04/04 2315 93 16 157/77 110 100 04/04 2300 86 14 142/55 94 99 04/04 2245 89 15 155/76 109 100 04/04 2230 91 20 175/80 116 100 04/04 2215 92 16 159/80 113 99 04/04 2200 90 18 153/75 107 100 04/04 2149 85 18 99 04/04 2145 86 19 153/74 106 98 04/04 2130 82 14 148/71 102 99 04/04 2119 82 04/04 2115 81 15 137/67 96 98 04/04 2112 81 12 137/65 94 97 04/04 2110 96 04/04 2103 79 15 99 04/04 2100 98.2 79 13 139/67 95 99 Room air 04/04 2055 79 12 133/63 90 99 04/04 0 79 15 126/62 86 96 04/04 0 79 15 126/62 96 04/04 2048 79 14 95 04/04 2044 78 17 129/65 90 100 04/04 2044 78 17 129/65 100 04/04 0 78 9 128/67 91 100 04/04 2038 Simple 6 mask 04/04 2034 78 12 128/61 85 100 04/04 2000 98.2 04/04 1915 87 17 152/72 105 100 04/04 1900 87 18 156/74 106 100 04/04 1845 85 11 154/74 107 99 04/04 1844 85 10 147/70 102 99 04/04 1843 98.2 86 13 147/70 99 04/04 1830 124 19 160/72 104 97 04/04 1815 85 10 155/67 106 99 04/04 1800 87 24 142/88 109 99 04/04 1745 86 12 155/89 118 99 04/04 1731 88 15 146/107 123 98 04/04 1715 86 15 152/75 107 99 04/04 1700 87 16 150/74 106 100 04/04 1645 85 14 164/75 108 100 04/04 1630 86 13 159/75 108 100 04/04 1615 84 12 134/61 88 99 04/04 1613 98.0 87 14 138/63 100 04/04 1611 86 12 138/63 91 100 04/04 1600 97.8 04/04 1600 85 12 170/76 109 100 04/04 1553 97.8 86 14 151/74 100 04/04 1549 97.8 85 14 151/74 100 04/04 1545 86 15 151/74 106 100 04/04 1530 86 31 168/71 102 98 24 hour I O ending at 0700: 04/05 0700 04/04 1900 Intake Total 78734.00 950.00 Output Total 65679 850 Balance -1845.00 100.00 Intake, IV 805.00 250.00 Intake, Oral 250 Intake, Other 9900 Intake, 700 Packed Cells Output, Other 9850 Output, Urine 2950 850 Patient 71.5 kg Weight Weight Bed scale Measurement Method PATIENT WEIGHT: Weight (lb): 157 Weight (oz): 10.09 Weight (kg): 71.500 Antibiotic start date: Antibiotic: clindamycin Start Date: 08/18-08/25 Antibiotic: Vancomycin Start Date: 08/18-08/25 Antibiotic: daptomycin Start Date:08/25 Antibiotic: Teflaro Start Date:08/25 Physical Exam General appearance: alert, awake, oriented Wound/incision: Location: right foot currently dressed Head/Eyes: atraumatic, normocephalic Neck: supple/no meningismus, no JVD Cardiovascular: normal heart sounds, regular rat e rhythm, no murmur Respiratory: clear to auscultation, aerating wel l, symmetric expansion Abdomen: non-tender, soft, no distention Genitourinary: urinary catheter ( on CBI) Extremities: edema, RLE pitting edema noted 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, 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 Considered stroke alert: no Skin: lesions, no rash Psychiatry: normal affect, normal mood Results Findings/Data: Laboratory Tests 08/27 08/27 08/27 08/27 08/26 1147 0824 0533 8948 2041 Chemistry Sodium (134 - 147 mEq/L) 137 Potassium (3.4 - 5.0 mEq/L) 5.3 H Chloride (100 - 108 mEq/L) 110 H Carbon Dioxide (21 - 33 mEq/l) 20 L Anion Gap (0 - 20) 12 BUN (7 - 18 mg/dL) 33 H Creatinine (0.6 - 1.3 mg/dL) 1.2 Glomerular Filtr Rate (90 - 95) 70.1 L Glucose (70 - 110 mg/dL) 285 H POC Glucose (70 - 110 MG/DL) 244 H 294 H 148 H Calcium (8.0 - 10.5 mg/dL) 7.2 L Ionized Calcium Mitzi (1.09 - 1.30 MMOL/L) 1.08 L Phosphorus (2.5 - 4.9 MG/DL) 5.4 H Magnesium (1.80 - 2.40 mg/dL) 1.94 Total Bilirubin (0.0 - 1.0 mg/dL) 0.40 AST (15 - 37 IUnit/L) 12 L ALT (30 - 65 IUnit/L) 9 L Total Alk Phosphatase (20 - 125 IUnit/L) 111 Total Protein (6.4 - 8.2 g/dL) 5.7 L Albumin (3.4 - 5.0 g/dL) 1.30 L 08/269 Chemistry POC Glucose (70 - 110 MG/DL) 169 H Laboratory Tests 08/278 Hematology WBC (4.5 - 11.0 x10 3/uL) 15.9 H RBC (4.00 - 5.60 x10 6/uL) 3.07 L Hgb (12.5 - 16.9 g/dL) 8.6 L Hct (37.5 - 50.7 %) 25.9 L MCV (81.0 - 99.0 fL) 84.4 MCH (27.0 - 33.0 pg) 28.0 MCHC (33.0 - 37.0 g/dL) 33.2 RDW (11.5 - 14.5 %) 14.6 H Plt Count (150 - 400 x10 3/uL) 250 MPV (7.0 - 9.0 fL) 9.8 H Neut % (Auto) (56.0 - 77.0 %) 88.7 H Lymph % (Auto) (14.0 - 32.0 %) 7.0 L Boundary % (Auto) (4.8 - 9.0 %) 3.3 L Eos % (Auto) (0.3 - 3.7 %) 0.3 Baso % (Auto) (0.0 - 2.0 %) 0.1 Neut # (Auto) (2.0 - 7.6 x10 3/uL) 14.14 H Lymph # (Auto) (1.0 - 3.8 x10 3/uL) 1.11 Boundary # (Auto) (0.1 - 0.8 x10 3/uL) 0.52 Eos # (Auto) (0.0 - 0.2 x10 3/uL) 0.04 Baso # (Auto) (0.0 - 0.2 x10 3/uL) 0.02 Abs Immat Gran (auto) (0.00 - 0.03 x10 3/uL) 0. 10 H Add Manual Diff NO Immature Gran % (0.0 - 2.0 %) 0.6 Nucleated RBC % (0 - 0 %) 0.0 Nucleated RBCs # (Man) (0.0 - 0.1 x10 3/uL) 0.0 0 Laboratory Tests: 08/27 08/27 08/27 08/27 08/26 1147 0824 8025 6977 2047 Chemistry Sodium (134 - 147 mEq/L) 137 Potassium (3.4 - 5.0 mEq/L) 5.3 H Chloride (100 - 108 mEq/L) 110 H Carbon Dioxide (21 - 33 mEq/l) 20 L Anion Gap (0 - 20) 12 BUN (7 - 18 mg/dL) 33 H Creatinine (0.6 - 1.3 mg/dL) 1.2 Glomerular Filtr Rate (90 - 95) 70.1 L Glucose (70 - 110 mg/dL) 285 H POC Glucose (70 - 110 MG/DL) 244 H 294 H 148 H Calcium (8.0 - 10.5 mg/dL) 7.2 L Ionized Calcium Mitzi (1.09 - 1.30 1.08 L MMOL/L) Phosphorus (2.5 - 4.9 MG/DL) 5.4 H Magnesium (1.80 - 2.40 mg/dL) 1.94 Total Bilirubin (0.0 - 1.0 mg/dL) 0.40 AST (15 - 37 IUnit/L) 12 L ALT (30 - 65 IUnit/L) 9 L Total Alk Phosphatase (20 - 125 IUnit/L) 111 Total Protein (6.4 - 8.2 g/dL) 5.7 L Albumin (3.4 - 5.0 g/dL) 1.30 L Hematology WBC (4.5 - 11.0 x10 3/uL) 15.9 H RBC (4.00 - 5.60 x10 6/uL) 3.07 L Hgb (12.5 - 16.9 g/dL) 8.6 L Hct (37.5 - 50.7 %) 25.9 L MCV (81.0 - 99.0 fL) 84.4 MCH (27.0 - 33.0 pg) 28.0 MCHC (33.0 - 37.0 g/dL) 33.2 RDW (11.5 - 14.5 %) 14.6 H Plt Count (150 - 400 x10 3/uL) 250 MPV (7.0 - 9.0 fL) 9.8 H Neut % (Auto) (56.0 - 77.0 %) 88.7 H Lymph % (Auto) (14.0 - 32.0 %) 7.0 L Boundary % (Auto) (4.8 - 9.0 %) 3.3 L Eos % (Auto) (0.3 - 3.7 %) 0.3 Baso % (Auto) (0.0 - 2.0 %) 0.1 Neut # (Auto) (2.0 - 7.6 x10 3/uL) 14.14 H Lymph # (Auto) (1.0 - 3.8 x10 3/uL) 1.11 Boundary # (Auto) (0.1 - 0.8 x10 3/uL) 0.52 Eos # (Auto) (0.0 - 0.2 x10 3/uL) 0.04 Baso # (Auto) (0.0 - 0.2 x10 3/uL) 0.02 Abs Immat Gran (auto) (0.00 - 0.03 0.10 H x10 3/uL) Add Manual Diff NO Immature Gran % (0.0 - 2.0 %) 0.6 Nucleated RBC % (0 - 0 %) 0.0 Nucleated RBCs # (Man) (0.0 - 0.1 0.00 x10 3/uL) 08/26 08/26 08/26 08/26 08/25 1739 1307 0906 0430 2007 Chemistry Sodium (134 - 147 mEq/L) 136 Potassium (3.4 - 5.0 mEq/L) 4.8 Chloride (100 - 108 mEq/L) 109 H Carbon Dioxide (21 - 33 mEq/l) 21 Anion Gap (0 - 20) 11 BUN (7 - 18 mg/dL) 32 H Creatinine (0.6 - 1.3 mg/dL) 1.1 Glomerular Filtr Rate (90 - 95) 77.8 L Glucose (70 - 110 mg/dL) 151 H POC Glucose (70 - 110 MG/DL) 169 H 166 H 163 H 113 H Calcium (8.0 - 10.5 mg/dL) 7.7 L Ionized Calcium Mitzi (1.09 - 1.30 MMOL/L) 1.11 Phosphorus (2.5 - 4.9 MG/DL) 4.6 Magnesium (1.80 - 2.40 mg/dL) 1.89 Total Bilirubin (0.0 - 1.0 mg/dL) 0.50 AST (15 - 37 IUnit/L) 19 ALT (30 - 65 IUnit/L) 11 L Total Alk Phosphatase (20 - 125 IUnit/L) 149 H Total Protein (6.4 - 8.2 g/dL) 5.5 L Albumin (3.4 - 5.0 g/dL) 1.30 L Hematology WBC (4.5 - 11.0 x10 3/uL) 17.7 H RBC (4.00 - 5.60 x10 6/uL) 2.44 L Hgb (12.5 - 16.9 g/dL) 6.7 L Hct (37.5 - 50.7 %) 20.4 L MCV (81.0 - 99.0 fL) 83.6 MCH (27.0 - 33.0 pg) 27.5 MCHC (33.0 - 37.0 g/dL) 32.8 L RDW (11.5 - 14.5 %) 14.7 H Plt Count (150 - 400 x10 3/uL) 253 MPV (7.0 - 9.0 fL) 9.9 H Neut % (Auto) (56.0 - 77.0 %) 87.5 H Lymph % (Auto) (14.0 - 32.0 %) 7.4 L Boundary % (Auto) (4.8 - 9.0 %) 3.9 L Eos % (Auto) (0.3 - 3.7 %) 0.5 Baso % (Auto) (0.0 - 2.0 %) 0.1 Neut # (Auto) (2.0 - 7.6 x10 3/uL) 15.49 H Lymph # (Auto) (1.0 - 3.8 x10 3/uL) 1.31 Boundary # (Auto) (0.1 - 0.8 x10 3/uL) 0.69 Eos # (Auto) (0.0 - 0.2 x10 3/uL) 0.08 Baso # (Auto) (0.0 - 0.2 x10 3/uL) 0.01 Abs Immat Gran (auto) (0.00 - 0.03 0.11 H x10 3/uL) Add Manual Diff NO Immature Gran % (0.0 - 2.0 %) 0.6 Nucleated RBC % (0 - 0 %) 0.0 Nucleated RBCs # (Man) (0.0 - 0.1 0.00 x10 3/uL) 08/25 1723 Chemistry POC Glucose (70 - 110 MG/DL) 132 H Microbiology: Date/Time Procedure - Status Source Growth 08/26 2216 Wound Culture - RES ABSCESS GRAM NEGATIVE JAKOB 08/26 2216 Anaerobic Culture - RES ABSCESS 08/26 2216 Gram Stain - RES ABSCESS Medication(s) Ordered: Anti-Infective Agents Sig/Jan Start time Last Medication Dose Route Stop Time Status Admin Meropenem 500 MG Q6H 08/27 1330 AC 08/27 Sterile Water 10 ML IV 09/03 1329 1435 Ceftaroline Fosamil 600 MG Q8H 08/25 1100 DC Sodium Chloride 100 ML IV 09/01 1059 1133 Daptomycin 700 MG Q24H 08/25 1100 CKD 08/27 Sodium Chloride 50 ML IV 09/08 1059 1134 Antihistamine Drugs Sig/Jan Start time Last Medication Dose Route Stop Time Status Admin Diphenhydramine HCl 12.5 MG PACU ONCE PRN 08/26 193 DC IV 08/27 0524 Promethazine HCl 25 MG PACU ONCE PRN 08/26 193 DC PO 08/27 0524 Blood Formation,Coagulation Sig/Jan Start time Last Medication Dose Route Stop Time Status Admin Heparin Sodium 5,000 UNIT Q8HR 08/18 0600 AC SUBQ 09/17 0559 1323 Cardiovascular Drugs Sig/Jan Start time Last Medication Dose Route Stop Time Status Admin Hydralazine HCl 5 MG PACU Q10MIN PRN PRN 08/26 193 DC IV 08/27 0524 Labetalol HCl 5 MG PACU Q10MIN PRN PRN 08/26 19 30 DC IV 08/27 0524 Lidocaine HCl 0 .STK-MED ONE 08/27 1919 DC .ROUTE Central Nervous System Agents Sig/Jan Start time Last Medication Dose Route Stop Time Status Admin Midazolam HCl 0 .STK-MED ONE 08/26 193 DC .ROUTE Fentanyl Citrate 100 MCG PACU Q10MIN PRN PRN 1929 DC IV 08/27 0424 Fentanyl Citrate 50 MCG PACU Q10MIN PRN PRN 193 DC IV 08/27 0524 Hydrocodone Bitart/ 1 TAB PACU ONCE 08/26 1929 DC Acetaminophen PO 08/27 0524 Hydromorphone HCl 1 MG PACU Q10MIN PRN PRN 04 4 0 DC IV 08/27 0524 Hydromorphone HCl 0.5 MG PACU Q5MIN PRN PRN 193 DC IV 08/27 0524 Meperidine HCl 12.5 MG PACU ONCE PRN 08/26 193 0 DC IV 08/27 0524 Morphine Sulfate 2 MG PACU Q10MIN PRN PRN 08/26 193 DC IV 08/27 0524 Tramadol HCl 50 MG PACU ONCE 08/26 193 DC PO 08/27 0524 Fentanyl Citrate 0 .STK-MED ONE 08/27 1919 DC .ROUTE Midazolam HCl 0 .STK-MED ONE 08/27 1919 DC .ROUTE Propofol 20 ML .STK-MED ONE 08/27 1919 DC IV Lorazepam 1 MG ONCE PRN 08/21 0900 AC 08/21 IV 09/20 0859 1143 Acetaminophen 650 MG Q6H PRN PRN 08/18 0945 AC 08/26 PO 09/17 0944 0003 Electrolytic, Caloric, And Daniel Sig/Jan Start time Last Medication Dose Route Stop Time Status Admin Calcium Gluconate/ 50 ML ONCE ONE 08/27 1230 DC 08/27 Sodium Chloride IV 08/27 1239 1321 Sodium Polystyrene 30 GM ONCE ONE 08/27 1230 DC 08/27 Sulfonate PO 08/27 1231 1314 Lactated Ringer's 1,000 ML .Q24H 08/26 1930 DC IV 08/27 0524 Sodium Chloride 0 ASDIR PRN 08/21 0900 AC IV 09/20 0859 Dextrose/Water 125 ML ASDIR PRN 08/20 1530 CKD IV 09/19 1529 Dextrose/Water 250 ML ASDIR PRN 08/20 1530 CKD IV 09/19 1529 Dextrose/Water 1,000 ML ASDIR 08/19 1015 AC IV 09/18 1014 Eye, Ear, Nose And Throat (Een Sig/Jan Start time Last Medication Dose Route Stop Time Status Admin Dexamethasone Sodium 0 .STK-MED ONE 08/27 1919 DC Phosphate .ROUTE Gastrointestinal Drugs Sig/Jan Start time Last Medication Dose Route Stop Time Status Admin Ondansetron HCl 4 MG PACU ONCE PRN 08/26 1930 D C IV 08/27 0524 Ondansetron HCl 0 .STK-MED ONE 08/27 1919 DC .ROUTE Famotidine 20 MG BID 08/21 2099 AC 08/27 PO 09/20 2058 0838 Bisacodyl 10 MG DAILY PRN PRN 08/18 0945 AC RECTAL 09/17 0944 Docusate Sodium 100 MG Q12H PRN PRN 08/18 0845 AC 08/22 PO 09/17 0944 210 Ondansetron HCl 4 MG Q6H PRN PRN 08/18 0945 AC IV 09/17 0944 Hormones And Synthetic Substit Sig/Jan Start time Last Medication Dose Route Stop Time Status Admin Insulin Human Lispro 0 PACU ONCE PRN 08/26 1930 DC SUBQ 08/27 0524 Insulin Glargine 25 UNIT BEDTIME 08/20 2100 AC 08/24 SUBQ 09/19 2059 2132 Insulin Human Lispro 7 UNIT AC 08/20 1630 AC 04 /05 SUBQ 09/19 1629 1157 Insulin Human Lispro 0 AC HS 08/20 1630 AC 04/0 5 SUBQ 09/19 1629 1157 Glucagon 1 MG ASDIR PRN 08/20 1530 AC IM 09/19 1529 Local Anesthetics (Parenteral) Sig/Jan Start time Last Medication Dose Route Stop Time Status Admin Ropivacaine 150 MG ASDIR PRN 08/26 1930 DC LOCAL 08/27 0524 Microbiology: 08/26 2216 ABSCESS: Wound Culture - RES GRAM NEGATIVE JAKOB 08/26 2216 ABSCESS: Anaerobic Culture - RES 08/26 221 ABSCESS: Gram Stain - RES 08/25 104 URINE: Urine Culture - COMP 08/25 104 BLOOD: Blood Culture - RES COAG POS STAPHYLOCOCCUS 08/25 1044 BLOOD: Blood Culture Gram Stain - RES 08/25 104 BLOOD: Blood Culture - RES COAG POS STAPHYLOCOCCUS 08/25 104 BLOOD: Blood Culture Gram Stain - RES Portions of this section wer e scribed by Jill Quintero on 08/27/22 at 1513 Treatment Prophylaxis Treatment Prophylaxis Lines: peripheral CVC/PICC documentation: The data below has been imported from nursing do cumentation. Any exceptions have been noted below under Provider comments. CVC/PICC insertion date/time: Provider comments on imported nursing data: [] Portions of this section wer e scribed by Jill Quintero on 08/27/22 at 1513 Diagnosis, Assessment Plan Free Text A P: Assessment: *MRSA bacteremia *Severe sepsis due to above *Right lower extremity necrotizing fasciitis -MRI of foot (+)Ve for osteomyelitis -s/p debridement on 08/19 *DKA *Prostatic abscess *ERIKA *Hyponatremia *Diabetic neuropathy *Diabetes mellitus type 2 *Hypertension -Initial blood cultures from 08/18/2022 positive for MRSA in 2 out of 2 sets. -Repeat blood cultures 08/21/2022 are already po sitive for MRSA in 2 out of 2 sets, suggesting persistent high-grade bacteremi a. -Wound culture also positive for MRSA -TTE 08/18/2022 negative for any obvious vegetat ions. -Went to the OR 08/19/2022 per podiatry for an I D. Plan: 08/25 -Discussed the possibility of amputation with david cavazos and family at bedside -Recommend JIMENA. -Repeat blood cultures x2 again today. -Continue to repeat serial blood cultures till b acteremia clears. -D/C clindamycin and vancomycin. -start on DAptomycin and Teflaro -check urine cx Discussed with Dr. Bass about MRI report 08/26 -plan for transrectal aspiration of abscess toda y -repeat blood cx are still (+)Ve; will repeat bl ood cx tomorrow -cont on daptomycin and Teflaro day #2 -Pt needs a JIMENA r/o endocarditis as pt has high grade persistent bacteremia -plan for Right BKA on 08/28 4 -s/p transrectal aspiration and unroofing of abs cess; cx GNR; will follow - repeat blood cx today --cont on daptomycin and Teflaro day #3 -Pt needs a JIMENA r/o endocarditis as pt has high grade persistent bacteremia -plan for Right BKA on 08/28 Portions of this section wer e scribed by Jill Quintero on 08/27/22 at 1513 at 1813 RPT #:[id number] END OF REPORT 2022-08-27 10:19:00-00:[address] [facility] ([facility] Cardiology Progress Note REPORT#:[id number] REPORT STATUS: Signed DATE:08/27/22 TIME: 1019 PATIENT: KARMA ROWLAND UNIT #: [id number] ROOM/BED: [facility]-1 : 63 AGE: 56 SEX: M ATTEND: Mikayla Ramires MD ADM AUTHOR: Rohit Benitez CLAY MILLER * ALL edits or amendments must be made on the el [employer]/computer document * Rohit Benitez 08/27/22 1019: Subjective Chief complaint: foot infection Free Text Subj Notes Free Text Subj Notes: Patient seen and evaluated. Resting in bed, on c ontinuous bladder irrigation. Denies chest pain or pressure. Telemetry sinus rhythm Objective General VS/I O: 24 hour I O ending at 0700: 04/ 0700 04 1900 Intake Total 05190.00 950.00 Output Total 71876 850 Balance -1845.00 100.00 Intake, IV 805.00 250.00 Intake, Oral 250 Intake, Other 9900 Intake, 700 Packed Cells Output, Other 9850 Output, Urine 2950 850 Patient 158 lb Weight Weight Bed scale Measurement Method Vital Signs: Date Time Temp Pulse Resp B/P B/P Pulse O2 O2 F low FiO2 Mean Ox Delivery Rate 08/27 0545 83 15 138/68 94 98 04/05 0530 85 16 132/69 92 98 04/05 0515 82 11 122/61 86 98 04/05 0500 82 13 125/60 85 99 04/05 0445 83 12 127/59 84 99 04/05 0430 83 13 130/63 91 100 04/05 0429 83 13 100 04/05 0415 84 16 132/63 90 98 04/05 0400 84 15 139/65 93 100 04/05 0345 81 12 122/62 87 99 04/05 0330 83 13 133/65 92 99 04/05 0315 82 12 121/61 86 98 04/05 0300 81 12 127/61 88 99 04/05 0245 81 11 131/63 88 99 04/05 0230 82 12 124/60 86 99 04/05 0215 83 11 119/60 84 98 04/05 0200 82 14 122/59 83 99 04/05 0145 83 12 136/65 93 98 04/05 0134 83 11 98 04/05 0130 84 12 136/61 90 99 04/05 0115 84 12 139/66 95 99 04/05 0100 97.8 04/05 0100 83 13 139/64 90 100 04/05 0049 84 13 100 04/05 0045 84 12 133/66 92 100 04/05 0034 83 11 99 04/05 0030 84 12 140/68 99 100 04/05 0019 83 11 100 04/05 0015 84 11 147/71 102 100 04/05 0004 83 11 100 04/05 0000 83 10 149/71 102 100 04/04 2349 84 11 100 04/04 2345 84 11 153/66 102 100 04/04 2334 86 12 100 04/04 2330 88 14 155/72 106 100 04/04 2315 93 16 157/77 110 100 04/04 2300 86 14 142/55 94 99 04/04 2245 89 15 155/76 109 100 04/04 2230 91 20 175/80 116 100 04/04 2215 92 16 159/80 113 99 04/04 2200 90 18 153/75 107 100 04/04 2149 85 18 99 04/04 2145 86 19 153/74 106 98 04/04 2130 82 14 148/71 102 99 04/04 2119 82 04/04 2115 81 15 137/67 96 98 04/04 2112 81 12 137/65 94 97 04/04 2110 96 04/04 2103 79 15 99 04/04 2100 98.2 79 13 139/67 95 99 Room air 04/04 2055 79 12 133/63 90 99 04/04 2050 79 15 126/62 86 96 04/04 2050 79 15 126/62 96 04/04 2049 79 14 95 04/04 2045 78 17 129/65 90 100 04/04 5 78 17 129/65 100 04/04 2040 78 9 128/67 91 100 04/04 2038 Simple 6 mask 04/04 5 78 12 128/61 85 100 04/04 1999 98.2 04/04 1915 87 17 152/72 105 100 04/04 1900 87 18 156/74 106 100 04/04 1845 85 11 154/74 107 99 04/04 1844 85 10 147/70 102 99 04/04 1843 98.2 86 13 147/70 99 04/04 1830 124 19 160/72 104 97 04/04 1815 85 10 155/67 106 99 04/04 1800 87 24 142/88 109 99 04/04 1745 86 12 155/89 118 99 04/04 1731 88 15 146/107 123 98 04/04 1715 86 15 152/75 107 99 04/04 1700 87 16 150/74 106 100 04/04 1645 85 14 164/75 108 100 04/04 1630 86 13 159/75 108 100 04/04 1615 84 12 134/61 88 99 04/04 1613 98.0 87 14 138/63 100 04/04 1611 86 12 138/63 91 100 04/04 1600 97.8 04/04 1600 85 12 170/76 109 100 04/04 1553 97.8 86 14 151/74 100 04/04 1549 97.8 85 14 151/74 100 04/04 1545 86 15 151/74 106 100 04/04 1530 86 31 168/71 102 98 04/04 1515 86 11 156/66 95 100 04/04 1500 83 14 145/68 98 100 04/04 1445 83 14 132/60 87 100 04/04 1430 85 12 150/69 99 100 04/04 1430 98.1 84 16 150/69 100 04/04 1412 83 12 152/67 96 100 04/04 1411 98.0 84 16 152/67 100 04/04 1300 82 19 152/65 94 100 04/04 1200 98.1 04/04 1200 80 16 138/64 92 100 04/04 1100 80 12 132/63 90 98 PATIENT WEIGHT: Weight (lb): 157 Weight (oz): 10.09 Weight (kg): 71.500 Medications: Active Meds + DC'd Last 24 Hrs Midazolam HCl (VERSED) 0 .STK-MED ONE .ROUTE (DC ) Diphenhydramine HCl (BENADRYL) 12.5 MG PACU ONCE PRN IV (DC) Fentanyl Citrate (SUBLIMAZE) 100 MCG PACU Q10MIN PRN PRN IV (DC) Fentanyl Citrate (SUBLIMAZE) 50 MCG PACU Q10MIN PRN PRN IV (DC) Hydralazine HCl (APRESOLINE) 5 MG PACU Q10MIN NV N PRN IV (DC) Hydrocodone Bitart/Acetaminophen (NORCO 5/325) 1 TAB PACU ONCE PO (DC) Hydromorphone HCl (DILAUDID) 1 MG PACU Q10MIN NV N PRN IV (DC) Hydromorphone HCl (DILAUDID) 0.5 MG PACU Q5MIN P RN PRN IV (DC) Insulin Human Lispro (HUMALOG) 0 PACU ONCE PRN S UBQ (DC) Labetalol HCl (LABETALOL HCL) 5 MG PACU Q10MIN P RN PRN IV (DC) Lactated Ringer's (LACTATED RINGERS) 1,000 ML .Q 24H IV (DC) Meperidine HCl (MEPERIDINE HCL/PF) 12.5 MG PACU ONCE PRN IV (DC) Morphine Sulfate (morphine SULFATE) 2 MG PACU Q1 0MIN PRN PRN IV (DC) Ondansetron HCl (ZOFRAN) 4 MG PACU ONCE PRN IV ( DC) Promethazine HCl (PHENERGAN) 25 MG PACU ONCE PRN PO (DC) Ropivacaine (NAROPIN 0.5% 150 MG/30mL) 150 MG DIR PRN LOCAL (DC) Tramadol HCl (ULTRAM) 50 MG PACU ONCE PO (DC) Dexamethasone Sodium Phosphate (DECADRON) 0 .STK -MED ONE .ROUTE (DC) Fentanyl Citrate (SUBLIMAZE) 0 .STK-MED ONE .ROU TE (DC) Lidocaine HCl (XYLOCAINE) 0 .STK-MED ONE .ROUTE (DC) Midazolam HCl (VERSED) 0 .STK-MED ONE .ROUTE (DC ) Ondansetron HCl (ZOFRAN) 0 .STK-MED ONE .ROUTE ( DC) Propofol (DIPRIVAN 200MG/20ML INJECTION) 20 ML . STK-MED ONE IV (DC) Ceftaroline Fosamil (TEFLARO) 600 MG Q8H IV (CKD ) Sodium Chloride (SODIUM CHLORIDE 0.9%) 100 ML Daptomycin (CUBICIN 500MG) 700 MG Q24H IV (CKD) Sodium Chloride (SODIUM CHLORIDE 0.9%) 50 ML Famotidine (PEPCID) 20 MG BID PO Lorazepam (ATIVAN) 1 MG ONCE PRN IV Sodium Chloride (SODIUM CHLORIDE) 0 ASDIR PRN IV Insulin Glargine (Lantus/Semglee) 25 UNIT BEDTIM E SUBQ Insulin Human Lispro (HUMALOG) 7 UNIT AC SUBQ Insulin Human Lispro (HUMALOG) 0 AC HS SUBQ Dextrose/Water (DEXTROSE 10% IN WATER) 125 ML DIR PRN IV (CKD) Dextrose/Water (DEXTROSE 10% IN WATER) 250 ML DIR PRN IV (CKD) Glucagon (GLUCAGON) 1 MG ASDIR PRN IM Dextrose/Water (Dextrose 10% 1,000 mL) 1,000 ML ASDIR IV Acetaminophen (TYLENOL) 650 MG Q6H PRN PRN PO Bisacodyl (DULCOLAX) 10 MG DAILY PRN PRN RECTAL Docusate Sodium (COLACE) 100 MG Q12H PRN PRN PO Ondansetron HCl (ZOFRAN) 4 MG Q6H PRN PRN IV Heparin Sodium (HEPARIN 5000 UNITS/ML) 5,000 UNI T Q8HR SUBQ Physical Exam General appearance: alert, awake, oriented Neck: no bruit/NL carotids, no JVD Cardiovascular: CV assessment: abnormal S1/S2, regular rate and rhythm, no ectopy Respiratory: clear to auscultation, no distress Lower extremity: LE assessment: edema 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 X 3 Considered stroke alert: no Wound/incision: Location: right foot Psychiatry: normal affect, normal judgment/insig ht, normal mood Results Findings/Data: Laboratory Tests 08/27 08/27 08/27 08/26 08/26 0824 0533 9072 2041 1739 Chemistry Sodium (134 - 147 mEq/L) 137 Potassium (3.4 - 5.0 mEq/L) 5.3 H Chloride (100 - 108 mEq/L) 110 H Carbon Dioxide (21 - 33 mEq/l) 20 L Anion Gap (0 - 20) 12 BUN (7 - 18 mg/dL) 33 H Creatinine (0.6 - 1.3 mg/dL) 1.2 Glomerular Filtr Rate (90 - 95) 70.1 L Glucose (70 - 110 mg/dL) 285 H POC Glucose (70 - 110 MG/DL) 294 H 148 H 169 H Calcium (8.0 - 10.5 mg/dL) 7.2 L Ionized Calcium Mitzi (1.09 - 1.30 MMOL/L) 1.08 L Phosphorus (2.5 - 4.9 MG/DL) 5.4 H Magnesium (1.80 - 2.40 mg/dL) 1.94 Total Bilirubin (0.0 - 1.0 mg/dL) 0.40 AST (15 - 37 IUnit/L) 12 L ALT (30 - 65 IUnit/L) 9 L Total Alk Phosphatase (20 - 125 IUnit/L) 111 Total Protein (6.4 - 8.2 g/dL) 5.7 L Albumin (3.4 - 5.0 g/dL) 1.30 L 08/26 1307 Chemistry POC Glucose (70 - 110 MG/DL) 166 H Laboratory Tests 08/27 0418 Hematology WBC (4.5 - 11.0 x10 3/uL) 15.9 H RBC (4.00 - 5.60 x10 6/uL) 3.07 L Hgb (12.5 - 16.9 g/dL) 8.6 L Hct (37.5 - 50.7 %) 25.9 L MCV (81.0 - 99.0 fL) 84.4 MCH (27.0 - 33.0 pg) 28.0 MCHC (33.0 - 37.0 g/dL) 33.2 RDW (11.5 - 14.5 %) 14.6 H Plt Count (150 - 400 x10 3/uL) 250 MPV (7.0 - 9.0 fL) 9.8 H Neut % (Auto) (56.0 - 77.0 %) 88.7 H Lymph % (Auto) (14.0 - 32.0 %) 7.0 L Boundary % (Auto) (4.8 - 9.0 %) 3.3 L Eos % (Auto) (0.3 - 3.7 %) 0.3 Baso % (Auto) (0.0 - 2.0 %) 0.1 Neut # (Auto) (2.0 - 7.6 x10 3/uL) 14.14 H Lymph # (Auto) (1.0 - 3.8 x10 3/uL) 1.11 Boundary # (Auto) (0.1 - 0.8 x10 3/uL) 0.52 Eos # (Auto) (0.0 - 0.2 x10 3/uL) 0.04 Baso # (Auto) (0.0 - 0.2 x10 3/uL) 0.02 Abs Immat Gran (auto) (0.00 - 0.03 x10 3/uL) 0 .10 H Add Manual Diff NO Immature Gran % (0.0 - 2.0 %) 0.6 Nucleated RBC % (0 - 0 %) 0.0 Nucleated RBCs # (Man) (0.0 - 0.1 x10 3/uL) 0.0 0 Laboratory Tests 08/27 0533 Chemistry Magnesium (1.80 - 2.40 mg/dL) 1.94 Diagnosis, Assessment Plan Free Text DxA P Notes Free Text DxA P Notes: Impression: 1. Preop eval/cardiac clearance 2. Infected right foot gas gangrene 3. DKA 4. Sepsis 5. Hypertension 6. Anemia Recommendation: Patient presented for evalua tion of altered mental status, weakness and elevated blood sugar. Diagnosed with DKA and seps is. 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 Known cardiac history of hypertensio n and hyperlipidemia. Denies prior history of CAD, CHF or arrhythmia. EKG abn ormal, NSR with anterior infarct. Vital signs stable. No prior cardiac wo rk-up. -Check echocardiogram -Monitor telemetry for arrhythmia -Monitor blood pressure trend -Wound care and IV antibiotic therapy -Supportive care 08/19: Patient doing better postop, blood pressur e control, currently in sinus rhythm, lower extremity artery Doppler negative for any significant PAD, continue current management from primary team an d podiatry service, continue monitor on telemetry for arrhythmia postop, supp ortive care, discussed with patient and family as well as RN, will follow. 08/21: Patient overall doing well, awake and irish rt today. Blood pressure well controlled. Currently in sinus rhythm to sinus t achycardia, will continue to monitor. Echocardiogram shows LVEF of 55 to 69%, no regional wall motion abnormalities, grade 1 diastolic dysfunction, an d mildly dilated LA. continue antibiotic therapy and wound care. Supportive ca re. Plan of care discussed with patient, RN and Dr. Parham. 08/22: No Significant changes from cardiac stand point. Vital signs stable. Telemetry monitoring reviewed, sinus rhythm to s inus tachycardia. We will continue monitor, sinus tachycardia likely relat ed to underlying infection. Continue wound care and antibiotic therapy. Supp ortive care. Plan of care discussed with patient, RN and Dr. Parham. 08/23: Stable cardiac status. Blood pressure and heart rate well controlled. Continue monitor telemetry. Continue wound care. Plan to transfer to floor. Supportive care. Plan of care discussed with lori hart RN and Dr. Parham. 08/24: Patient overall doing well, remains stabl e from cardiac standpoint. Blood pressure and heart rat e well controlled. No new events noted on telemetry monitoring. Remains in sinus rhythm by physical examination. Continue wound care. Supportive care. Plan of care discussed wi patient, RN and Dr. Parham. 08/25: Remain stable from cardiac standpoint. Bl ood pressure well controlled. Currently in sinus rhythm by physical examinatio n. Possible plan for another wound debridement today. Pain management and sup portive care. Plan of care discussed with patient, RN and Dr. Parham. 08/26: Patient remains in sinus rhythm. Blood pr essure well controlled. Plan for aspiration of prostatic cyst today. Plan for right BKA on . We will continue monitor patient postoperatively. C ontinue antibiotic therapy. Supportive care. Plan of care discussed with lori hart RN and Dr. Parham. 08/27: Patient doing well st atus post aspiration of prostatic abscess and TURP. Currently on continuous bladder irrigation. Hemo dynamically stable. Blood pressure and heart rate well controlled. Remains in normal sinus rhythm. Plan for right BKA tomorrow. Melia red from cardiac standpoint to proceed with planned surgery. Supportive care. Plan of care discussed with patient, RN and Dr. Parham. Gianni Parham 08/28/22 0846: Diagnosis, Assessment Plan Additional comments: Patient was seen and examined at bedside , agree with above assessment and plan as documented by nurse practitioner. Will follow . Electronically Signed by Rohit Benitez NP on 0 08/27/22 at 1937 at 0849 RPT #:[id number] END OF REPORT 2022-08-26 20:26:00-00:00 [id number] [place] [id number] PATIENT NAME: KARMA ROWLAND ADMIT DATE: 08/18 ACCOUNT NO: [id number] ROOM NO: G.458 AGE: 56 REPORT TYPE: OPERATIVE REPORT SEX: M ADMITTING PHYSICIAN:Wilbert Ramires MD ATTENDING PHYSICIAN:Wilbert Ramires MD OPERATION DATE: 08/26/2022 SURGEON: David Bass MD ENVIRONMENTAL TECHNOLOGY PROFESSOR: None. ANESTHESIA: General. PREOPERATIVE DIAGNOSIS: Prostate abscess. POSTOPERATIVE DIAGNOSIS: Prostate abscess. PROCEDURE PERFORMED: Transrectal ultrasound aspi ration of abscess and transurethral resection of prostate with unroofi ng of abscess. FINDINGS: On the left side, we were able to aspirate some pus from the patient's prostate transrectally and we were able to unroof the abscess transurethrally. PROCEDURE IN DETAIL: After s igning informed consent, the patient was taken back to the procedure room where he underwent general anesthetic, IV antibiotics, put in the dorsal lithotomy posi tion, prepped and draped in normal sterile fashion. We entered his rectum with the transrectal ultra sound probe, we were able to visualize what we believed to be the abscess or a cyst. We were able to use a 7-inch needle to aspirate some pus and sent this to microbiology. We then prepped and draped him for t ransurethral resection or unroofing of the prostate abscess. We entered his bladder with the visual obturator resectoscope he had normal anterior urethra. He had a small normal-appearing prostate. We switched to the resection loop and on the left side we began resecting down until we had unroofed the prostate and drained the abscess. W e then got hemostasis. We cauterized the base of the abscess. We irrigated out the chips. There were no other tumors or stones seen. We placed a wire in to the bladder, removed the resectoscope and placed a 22-German 3-wa y C[place]rena catheter over the wire, put 30 mL in the balloon. The patient tolerated the pro cedure well. There were no complications. He will be continued on continuou s bladder irrigation. Dictated By: David Bass MD Date Dictated: 08/26/2022 20:26:13 Date Transcribed: 08/26/2022 21:06:43 /[facility] PATIENT NAME: LASHAWN ROWLANDO [id number] Receipt ID: [id number] Authenticated by David Bass MD On 06:53:50 PM at 0653 PATIENT NAME: KARMA ROWLAND [id number] 0055-04-04 20:04:00-00:00 [facility] REPORT#:[id number] REPORT STATUS: Signed DATE:08/26/22 TIME: 2003 PATIENT: KARMA ROWLAND UNIT #: [id number] ROOM/BED: [facility]-1 : 63 AGE: 56 SEX: M ATTEND: Mikayla Ramires MD ADM AUTHOR: Liam Pedersen DPM * ALL edits or amendments must be made on the el [employer]/computer document * Subjective Chief complaint: seen at bedside,. family memebers next to him denies having any pain foot covered and protected and offloaded drainage noted serosang. increased warmth Patient reports: no diarrhea, no fever, no heada aixa, no itching, no nausea Comments: pt in ICU many questions answered again today but not anything like yesterday Objective General VS: Last Documented: Result Date Time Pulse Ox 100 08/26 1914 B/P 152/72 08/26 1914 B/P Mean 105 08/26 1914 Pulse 87 08/26 1914 Resp 17 08/26 1914 Temp 36.8 08/26 184 O2 Delivery Room air 08/24 1900 O2 Flow Rate 2 08/21 0800 PATIENT WEIGHT: Weight (lb): 160 Weight (oz): 15 Weight (kg): 72.575 Medications: Active Meds + DC'd Last 24 Hrs Midazolam HCl (VERSED) 0 .STK-MED ONE .ROUTE (DC ) Diphenhydramine HCl (BENADRYL) 12.5 MG PACU ONCE PRN IV Fentanyl Citrate (SUBLIMAZE) 100 MCG PACU Q10MIN PRN PRN IV Fentanyl Citrate (SUBLIMAZE) 50 MCG PACU Q10MIN PRN PRN IV Hydralazine HCl (APRESOLINE) 5 MG PACU Q10MIN NV N PRN IV Hydrocodone Bitart/Acetaminophen (NORCO 5/325) 1 TAB PACU ONCE PO (CKD) Hydromorphone HCl (DILAUDID) 1 MG PACU Q10MIN NV N PRN IV Hydromorphone HCl (DILAUDID) 0.5 MG PACU Q5MIN P RN PRN IV Insulin Human Lispro (HUMALOG) 0 PACU ONCE PRN S UBQ Labetalol HCl (LABETALOL HCL) 5 MG PACU Q10MIN P RN PRN IV Lactated Ringer's (LACTATED RINGERS) 1,000 ML .Q 24H IV Meperidine HCl (MEPERIDINE HCL/PF) 12.5 MG PACU ONCE PRN IV Morphine Sulfate (morphine SULFATE) 2 MG PACU Q1 0MIN PRN PRN IV Ondansetron HCl (ZOFRAN) 4 MG PACU ONCE PRN IV Promethazine HCl (PHENERGAN) 25 MG PACU ONCE PRN PO Ropivacaine (NAROPIN 0.5% 150 MG/30mL) 150 MG DIR PRN LOCAL Tramadol HCl (ULTRAM) 50 MG PACU ONCE PO (CKD) Dexamethasone Sodium Phosphate (DECADRON) 0 .STK -MED ONE .ROUTE (DC) Fentanyl Citrate (SUBLIMAZE) 0 .STK-MED ONE .RO ROBBY (DC) Lidocaine HCl (XYLOCAINE) 0 .STK-MED ONE .ROUTE (DC) Midazolam HCl (VERSED) 0 .STK-MED ONE .ROUTE (DC ) Ondansetron HCl (ZOFRAN) 0 .STK-MED ONE .ROUTE (DC) Propofol (DIPRIVAN 200MG/20ML INJECTION) 20 ML . STK-MED ONE IV (DC) Ceftaroline Fosamil (TEFLARO) 600 MG Q8H IV (CKD ) Sodium Chloride (SODIUM CHLORIDE 0.9%) 100 ML Daptomycin (CUBICIN 500MG) 700 MG Q24H IV (CKD) Sodium Chloride (SODIUM CHLORIDE 0.9%) 50 ML Famotidine (PEPCID) 20 MG BID PO Lorazepam (ATIVAN) 1 MG ONCE PRN IV Sodium Chloride (SODIUM CHLORIDE) 0 ASDIR PRN IV Insulin Glargine (Lantus/Semglee) 25 UNIT BEDTIM E SUBQ Insulin Human Lispro (HUMALOG) 7 UNIT AC SUBQ Insulin Human Lispro (HUMALOG) 0 AC HS SUBQ Dextrose/Water (DEXTROSE 10% IN WATER) 125 ML DIR PRN IV (CKD) Dextrose/Water (DEXTROSE 10% IN WATER) 250 ML DIR PRN IV (CKD) Glucagon (GLUCAGON) 1 MG ASDIR PRN IM Dextrose/Water (Dextrose 10% 1,000 mL) 1,000 ML ASDIR IV Acetaminophen (TYLENOL) 650 MG Q6H PRN PRN PO Bisacodyl (DULCOLAX) 10 MG DAILY PRN PRN RECTAL Docusate Sodium (COLACE) 100 MG Q12H PRN PRN PO Ondansetron HCl (ZOFRAN) 4 MG Q6H PRN PRN IV Heparin Sodium (HEPARIN 5000 UNITS/ML) 5,000 UNI T Q8HR SUBQ I O: 24 hour I O ending at 0700: 04/04 0700 04/03 1900 Intake Total 440.00 150.00 Output Total 750 725 Balance -310.00 -575.00 Intake, IV 200.00 150.00 Intake, Oral 240 Output, Urine 750 725 Dietitian nutrition assessment The data set between the solid lines has been im ported from the dietitian's assessment. BMI Calculated: 25.8 Nutrition related diagnosis: Nutrition diagnosis details: Nutrition problem: Nutrition etiology: Nutrition signs and symptoms: Nutrition prescription: Dietitian name: Assessment completed: Physical Exam Wound/incision: Location: Right foot to right ankle. DP and PT pulses are very weak essentially nonp alpable. There is severe edema of the right foot to the right ankle, better. There is erythema of the right foot to the righ t ankle, much better. Not really any ascending lymphangitis past ther e. Crepitation is at the medial right hindfoot and the dorsal right midfoot are significantly less. There is no longer crepitation at the lateral r ight ankle. There is some bullae that are peeling medial an d lateral. Sensation is greatly decreased on the right janelle t. base of three wounds fibrotic. sero purulent drainage. bones and tendons exposed. Left foot has no ulcers but has OA changes at a nkle with some chronic edema. 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 IV antibiotics Monitor leukocytosis NIAS: minimal PVD right 08/18 wound culture: MRSA (This one is not accura te, it is of skin that was intact) 08/19 OR culture: MRSA blood cultures: MRSA Offloading boot ICU for now pulse lavage by physical therapy oralia wrap compression left ankle MRI: osteo pt and family ultimately decided on BKA right. plan BKA with Dr. Leroy thursday/ Electronically Signed by Liam Pedersen DPM on 0 08/26/22 at 2015 RPT #:[id number] END OF REPORT 2022-08-26 17:30:00-00:00 [facility]) Endocrinology Progress Note REPORT#:[id number] REPORT STATUS: Signed DATE:08/26/22 TIME: 1730 PATIENT: KARMA ROWLAND UNIT #: [id number] ROOM/BED: [place] [id number] : 61 AGE: 56 SEX: M ATTEND: Mikayla Ramires MD ADM AUTHOR: Braxton Chapin MD * ALL edits or amendments must be made on the [employer]/computer document * Subjective Patient reports: no complaints Objective General VS: Last Documented: Result Date Time Pulse Ox 100 08/26 1613 B/P 138/63 08/26 1613 Temp 36.7 08/26 161 Pulse 87 08/26 1613 Resp 14 08/26 1613 B/P Mean 83 08/26 0600 O2 Delivery Room air 08/24 1900 O2 Flow Rate 2 08/21 0800 PATIENT WEIGHT: Weight (lb): 160 Weight (oz): 15 Weight (kg): 72.575 Medications: Active Meds + DC'd Last 24 Hrs Bupivacaine HCl (MARCAINE 0.5% VIAL) 0 .STK-MED ONE .ROUTE (DC) Gentamicin Sulfate (GARAMYCIN) 0 .STK-MED ONE .R OUTE (DC) Lidocaine HCl (LIDOCAINE HCL/PF) 0 .STK-MED ONE .ROUTE (DC) Fentanyl Citrate (SUBLIMAZE) 0 .STK-MED ONE .ROU TE (DC) Midazolam HCl (VERSED) 0 .STK-MED ONE .ROUTE (DC ) Propofol (DIPRIVAN 200MG/20ML INJECTION) 0 .STK- MED ONE IV (DC) Ceftaroline Fosamil (TEFLARO) 600 MG Q8H IV (CKD ) Sodium Chloride (SODIUM CHLORIDE 0.9%) 100 ML Daptomycin (CUBICIN 500MG) 700 MG Q24H IV (CKD) Sodium Chloride (SODIUM CHLORIDE 0.9%) 50 ML Famotidine (PEPCID) 20 MG BID PO Lorazepam (ATIVAN) 1 MG ONCE PRN IV Sodium Chloride (SODIUM CHLORIDE) 0 ASDIR PRN IV Insulin Glargine (Lantus/Semglee) 25 UNIT BEDTIM E SUBQ Insulin Human Lispro (HUMALOG) 7 UNIT AC SUBQ Insulin Human Lispro (HUMALOG) 0 AC HS SUBQ Dextrose/Water (DEXTROSE 10% IN WATER) 125 ML DIR PRN IV (CKD) Dextrose/Water (DEXTROSE 10% IN WATER) 250 ML DIR PRN IV (CKD) Glucagon (GLUCAGON) 1 MG ASDIR PRN IM Dextrose/Water (Dextrose 10% 1,000 mL) 1,000 ML ASDIR IV Acetaminophen (TYLENOL) 650 MG Q6H PRN PRN PO Bisacodyl (DULCOLAX) 10 MG DAILY PRN PRN RECTAL Docusate Sodium (COLACE) 100 MG Q12H PRN PRN PO Ondansetron HCl (ZOFRAN) 4 MG Q6H PRN PRN IV Heparin Sodium (HEPARIN 5000 UNITS/ML) 5,000 UNI T Q8HR SUBQ Physical Exam General appearance: alert, awake Diagnosis, Assessment Plan Hospital course to date: Laboratory Tests: 08/26 08/26 08/25 0906 0430 2007 Chemistry Sodium (134 - 147 mEq/L) 136 Potassium (3.4 - 5.0 mEq/L) 4.8 Chloride (100 - 108 mEq/L) 109 H Carbon Dioxide (21 - 33 mEq/l) 21 Anion Gap (0 - 20) 11 BUN (7 - 18 mg/dL) 32 H Creatinine (0.6 - 1.3 mg/dL) 1.1 Glomerular Filtr Rate (90 - 95) 77.8 L Glucose (70 - 110 mg/dL) 151 H POC Glucose (70 - 110 MG/DL) 163 H 113 H Calcium (8.0 - 10.5 mg/dL) 7.7 L Ionized Calcium Mitzi (1.09 - 1.30 MMOL/L) 1.11 Phosphorus (2.5 - 4.9 MG/DL) 4.6 Magnesium (1.80 - 2.40 mg/dL) 1.89 Total Bilirubin (0.0 - 1.0 mg/dL) 0.50 AST (15 - 37 IUnit/L) 19 ALT (30 - 65 IUnit/L) 11 L Total Alk Phosphatase (20 - 125 IUnit/L) 149 H Total Protein (6.4 - 8.2 g/dL) 5.5 L Albumin (3.4 - 5.0 g/dL) 1.30 L Hematology WBC (4.5 - 11.0 x10 3/uL) 17.7 H RBC (4.00 - 5.60 x10 6/uL) 2.44 L Hgb (12.5 - 16.9 g/dL) 6.7 L Hct (37.5 - 50.7 %) 20.4 L MCV (81.0 - 99.0 fL) 83.6 MCH (27.0 - 33.0 pg) 27.5 MCHC (33.0 - 37.0 g/dL) 32.8 L RDW (11.5 - 14.5 %) 14.7 H Plt Count (150 - 400 x10 3/uL) 253 MPV (7.0 - 9.0 fL) 9.9 H Neut % (Auto) (56.0 - 77.0 %) 87.5 H Lymph % (Auto) (14.0 - 32.0 %) 7.4 L Boundary % (Auto) (4.8 - 9.0 %) 3.9 L Eos % (Auto) (0.3 - 3.7 %) 0.5 Baso % (Auto) (0.0 - 2.0 %) 0.1 Neut # (Auto) (2.0 - 7.6 x10 3/uL) 15.49 H Lymph # (Auto) (1.0 - 3.8 x10 3/uL) 1.31 Boundary # (Auto) (0.1 - 0.8 x10 3/uL) 0.69 Eos # (Auto) (0.0 - 0.2 x10 3/uL) 0.08 Baso # (Auto) (0.0 - 0.2 x10 3/uL) 0.01 Abs Immat Gran (auto) (0.00 - 0.03 x10 3/uL) 0. 11 H Add Manual Diff NO Immature Gran % (0.0 - 2.0 %) 0.6 Nucleated RBC % (0 - 0 %) 0.0 Nucleated RBCs # (Man) (0.0 - 0.1 x10 3/uL) 0.0 0 Laboratory Tests: 08/25 08/25 08/25 08/25 1723 1111 1044 1044 Chemistry Potassium (3.4 - 5.0 mEq/L) 4.5 POC Glucose (70 - 110 MG/DL) 132 H 143 H Total Creatine Kinase (46 - 171 Units/L) 17 L Urines Urine Color (YEL/STRAW) YELLOW Urine Appearance (CLEAR) TURBID H Urine pH (5.0 - 7.0) 5.0 Ur Specific [place] (1.005 - 1.030) 1.012 Urine Protein (NEGATIVE) 2+ H Urine Glucose (UA) (NEGATIVE) NEGATIVE Urine Ketones (NEGATIVE) NEGATIVE Urine Blood (NEGATIVE) 2+ H Urine Nitrite (NEGATIVE) NEGATIVE Urine Bilirubin (NEGATIVE) NEGATIVE Urine Urobilinogen (0.2 - 1.0 mg/dL) 0.2 Ur Leukocyte Esterase (NEGATIVE) 3+ H Urine RBC (0 - 3 RBC/HPF) 21-50 Urine WBC (0 - 3 WBC/HPF) >50 H Ur Squamous Epith Cells (NONE SEEN /HPF) NONE S EEN Ur Transition Epith Cell (NONE SEEN /HPF) 3+ H Urine Bacteria (NONE SEEN /HPF) TRACE Urine Mucus (NONE SEEN /LPF) TRACE 08/25 08/25 08/24 0750 0744 2130 Chemistry Sodium (134 - 147 mEq/L) 135 Potassium (3.4 - 5.0 mEq/L) 5.4 H Chloride (100 - 108 mEq/L) 110 H Carbon Dioxide (21 - 33 mEq/l) 19 L Anion Gap (0 - 20) 11 BUN (7 - 18 mg/dL) 25 H Creatinine (0.6 - 1.3 mg/dL) 1.1 Glomerular Filtr Rate (90 - 95) 77.8 L Glucose (70 - 110 mg/dL) 162 H POC Glucose (70 - 110 MG/DL) 166 H 140 H Calcium (8.0 - 10.5 mg/dL) 7.3 L Ionized Calcium Mitzi (1.09 - 1.30 MMOL/L) 0.96 L Phosphorus (2.5 - 4.9 MG/DL) 4.5 Magnesium (1.80 - 2.40 mg/dL) 1.88 Total Bilirubin (0.0 - 1.0 mg/dL) 0.50 AST (15 - 37 IUnit/L) 40 H ALT (30 - 65 IUnit/L) 21 L Total Alk Phosphatase (20 - 125 IUnit/L) 159 H Total Protein (6.4 - 8.2 g/dL) 5.6 L Albumin (3.4 - 5.0 g/dL) 1.30 L Hematology WBC (4.5 - 11.0 x10 3/uL) 17.9 H RBC (4.00 - 5.60 x10 6/uL) 2.64 L Hgb (12.5 - 16.9 g/dL) 7.3 L Hct (37.5 - 50.7 %) 22.6 L MCV (81.0 - 99.0 fL) 85.6 MCH (27.0 - 33.0 pg) 27.7 MCHC (33.0 - 37.0 g/dL) 32.3 L RDW (11.5 - 14.5 %) 15.1 H Plt Count (150 - 400 x10 3/uL) 226 MPV (7.0 - 9.0 fL) 10.7 H Neut % (Auto) (56.0 - 77.0 %) 86.3 H Lymph % (Auto) (14.0 - 32.0 %) 8.1 L Boundary % (Auto) (4.8 - 9.0 %) 4.3 L Eos % (Auto) (0.3 - 3.7 %) 0.5 Baso % (Auto) (0.0 - 2.0 %) 0.1 Neut # (Auto) (2.0 - 7.6 x10 3/uL) 15.44 H Lymph # (Auto) (1.0 - 3.8 x10 3/uL) 1.45 Boundary # (Auto) (0.1 - 0.8 x10 3/uL) 0.77 Eos # (Auto) (0.0 - 0.2 x10 3/uL) 0.09 Baso # (Auto) (0.0 - 0.2 x10 3/uL) 0.02 Abs Immat Gran (auto) (0.00 - 0.03 x10 3/uL) 0. 13 H Add Manual Diff NO Immature Gran % (0.0 - 2.0 %) 0.7 Nucleated RBC % (0 - 0 %) 0.0 Nucleated RBCs # (Man) (0.0 - 0.1 x10 3/uL) 0.0 0 Microbiology: Date/Time Procedure - Status Source Growth 08/25 1044 Urine Culture - WKST URINE 08/26 1043 Blood Culture - RECD BLOOD 08/26 1043 Blood Culture - RECD BLOOD Laboratory Tests: 08/20 08/20 08/20 08/20 08/20 1107 0756 0647 0554 0454 Chemistry Sodium (134 - 147 mEq/L) 137 Potassium (3.4 - 5.0 mEq/L) 3.7 Chloride (100 - 108 mEq/L) 107 Carbon Dioxide (21 - 33 mEq/l) 20 L Anion Gap (0 - 20) 14 BUN (7 - 18 mg/dL) 44 H Creatinine (0.6 - 1.3 mg/dL) 1.2 Glomerular Filtr Rate (90 - 95) 70.1 L Glucose (70 - 110 mg/dL) 212 H POC Glucose (70 - 110 MG/DL) 173 H 192 H 206 H 198 H Calcium (8.0 - 10.5 mg/dL) 7.3 L Ionized Calcium Mitzi (1.09 - 1.30 MMOL/L) 1.04 L Phosphorus (2.5 - 4.9 MG/DL) 3.4 Magnesium (1.80 - 2.40 mg/dL) 2.05 Total Bilirubin (0.0 - 1.0 mg/dL) 0.60 AST (15 - 37 IUnit/L) 51 H ALT (30 - 65 IUnit/L) 22 L Total Alk Phosphatase (20 - 125 IUnit/L) 178 H Total Protein (6.4 - 8.2 g/dL) 5.7 L Albumin (3.4 - 5.0 g/dL) 2.00 L Hematology WBC (4.5 - 11.0 x10 3/uL) 22.8 H RBC (4.00 - 5.60 x10 6/uL) 2.63 L Hgb (12.5 - 16.9 g/dL) 7.1 L Hct (37.5 - 50.7 %) 21.3 L MCV (81.0 - 99.0 fL) 81.0 MCH (27.0 - 33.0 pg) 27.0 MCHC (33.0 - 37.0 g/dL) 33.3 RDW (11.5 - 14.5 %) 14.7 H Plt Count (150 - 400 x10 3/uL) 190 MPV (7.0 - 9.0 fL) 10.0 H Neut % (Auto) (56.0 - 77.0 %) 87.2 H Lymph % (Auto) (14.0 - 32.0 %) 4.8 L Boundary % (Auto) (4.8 - 9.0 %) 2.9 L Eos % (Auto) (0.3 - 3.7 %) 0.0 L Baso % (Auto) (0.0 - 2.0 %) 0.2 Neut # (Auto) (2.0 - 7.6 x10 3/uL) 19.90 H Lymph # (Auto) (1.0 - 3.8 x10 3/uL) 1.10 Boundary # (Auto) (0.1 - 0.8 x10 3/uL) 0.66 Eos # (Auto) (0.0 - 0.2 x10 3/uL) 0.00 Baso # (Auto) (0.0 - 0.2 x10 3/uL) 0.04 Abs Immat Gran (auto) (0.00 - 0.03 1.12 H x10 3/uL) Add Manual Diff NO Immature Gran % (0.0 - 2.0 %) 4.9 H Nucleated RBC % (0 - 0 %) 0.0 Nucleated RBCs # (Man) (0.0 - 0.1 0.00 x10 3/uL) 08/20 08/20 08/19 08/19 08/19 0259 0101 2352 2322 2310 Chemistry Sodium (134 - 147 mEq/L) 132 L Potassium (3.4 - 5.0 mEq/L) 3.7 Chloride (100 - 108 mEq/L) 107 Carbon Dioxide (21 - 33 mEq/l) 21 Anion Gap (0 - 20) 8 BUN (7 - 18 mg/dL) 41 H Creatinine (0.6 - 1.3 mg/dL) 1.2 Glomerular Filtr Rate (90 - 95) 70.1 L Glucose (70 - 110 mg/dL) 184 H POC Glucose (70 - 110 MG/DL) 195 H 181 H 182 H 191 H Calcium (8.0 - 10.5 mg/dL) 7.1 L Phosphorus (2.5 - 4.9 MG/DL) 3.3 Magnesium (1.80 - 2.40 mg/dL) 2.09 Albumin (3.4 - 5.0 g/dL) 1.70 L Hematology Hgb (12.5 - 16.9 g/dL) 7.0 L Hct (37.5 - 50.7 %) 21.8 L 08/193 1 2014 172 1652 Chemistry Sodium (134 - 147 mEq/L) 133 L Potassium (3.4 - 5.0 mEq/L) 3.6 Chloride (100 - 108 mEq/L) 105 Carbon Dioxide (21 - 33 mEq/l) 21 Anion Gap (0 - 20) 10 BUN (7 - 18 mg/dL) 45 H Creatinine (0.6 - 1.3 mg/dL) 1.2 Glomerular Filtr Rate (90 - 95) 70.1 L Glucose (70 - 110 mg/dL) 247 H POC Glucose (70 - 110 MG/DL) 165 H 209 H 218 H 219 H Calcium (8.0 - 10.5 mg/dL) 7.6 L Phosphorus (2.5 - 4.9 MG/DL) 3.0 Magnesium (1.80 - 2.40 mg/dL) 2.03 Albumin (3.4 - 5.0 g/dL) 1.40 L Hematology WBC (4.5 - 11.0 x10 3/uL) 20.3 H RBC (4.00 - 5.60 x10 6/uL) 2.57 L Hgb (12.5 - 16.9 g/dL) 7.1 L Hct (37.5 - 50.7 %) 20.9 L MCV (81.0 - 99.0 fL) 81.3 MCH (27.0 - 33.0 pg) 27.6 MCHC (33.0 - 37.0 g/dL) 34.0 RDW (11.5 - 14.5 %) 14.3 Plt Count (150 - 400 x10 3/uL) 197 MPV (7.0 - 9.0 fL) 10.2 H Neut % (Auto) (56.0 - 77.0 %) 88.7 H Lymph % (Auto) (14.0 - 32.0 %) 3.8 L Boundary % (Auto) (4.8 - 9.0 %) 3.7 L Eos % (Auto) (0.3 - 3.7 %) 0.0 L Baso % (Auto) (0.0 - 2.0 %) 0.3 Neut # (Auto) (2.0 - 7.6 x10 3/uL) 17.97 H Lymph # (Auto) (1.0 - 3.8 x10 3/uL) 0.76 L Boundary # (Auto) (0.1 - 0.8 x10 3/uL) 0.74 Eos # (Auto) (0.0 - 0.2 x10 3/uL) 0.00 Baso # (Auto) (0.0 - 0.2 x10 3/uL) 0.07 Abs Immat Gran (auto) (0.00 - 0.03 0.71 H x10 3/uL) Add Manual Diff NO Immature Gran % (0.0 - 2.0 %) 3.5 H Nucleated RBC % (0 - 0 %) 0.0 Nucleated RBCs # (Man) (0.0 - 0.1 0.00 x10 3/uL) 08/19 08/19 1622 1601 Chemistry POC Glucose (70 - 110 MG/DL) 232 H Urines Urine Color (YEL/STRAW) YELLOW Urine Appearance (CLEAR) SL CLOUDY Urine pH (5.0 - 7.0) 5.0 Ur Specific [place] (1.005 - 1.030) 1.013 Urine Protein (NEGATIVE) 1+ H Urine Glucose (UA) (NEGATIVE) 3+ H Urine Ketones (NEGATIVE) NEGATIVE Urine Blood (NEGATIVE) 2+ H Urine Nitrite (NEGATIVE) NEGATIVE Urine Bilirubin (NEGATIVE) NEGATIVE Urine Urobilinogen (0.2 - 1.0 mg/dL) 0.2 Ur Leukocyte Esterase (NEGATIVE) 3+ H Urine RBC (0 - 3 RBC/HPF) 4-10 Urine WBC (0 - 3 WBC/HPF) 21-50 H Ur Squamous Epith Cells (NONE SEEN /HPF) 0-5 Urine Bacteria (NONE SEEN /HPF) TRACE Urine Mucus (NONE SEEN /LPF) TRACE Microbiology: Date/Time Procedure - Status Source Growth 08/20 1457 Blood Culture - ORD BLOOD 08/20 1457 Blood Culture - ORD BLOOD 08/19 1709 Blood Culture - ORD BLOOD 08/19 1709 Blood Culture - ORD BLOOD 08/19 1622 Urine Culture - RES URINE Laboratory Tests: 08/19 08/19 08/19 08/19 08/19 1338 1335 1233 1115 1115 Chemistry Sodium (134 - 147 mEq/L) 130 L Potassium (3.4 - 5.0 mEq/L) 3.6 Chloride (100 - 108 mEq/L) 107 Carbon Dioxide (21 - 33 mEq/l) 22 Anion Gap (0 - 20) 5 BUN (7 - 18 mg/dL) 39 H Creatinine (0.6 - 1.3 mg/dL) 1.1 Glomerular Filtr Rate (90 - 95) 77.8 L Glucose (70 - 110 mg/dL) 315 H POC Glucose (70 - 110 MG/DL) 340 H 363 H 326 H Calcium (8.0 - 10.5 mg/dL) 7.6 L Phosphorus (2.5 - 4.9 MG/DL) 2.2 L Magnesium (1.80 - 2.40 mg/dL) 2.06 B-Natriuretic Peptide (0 - 100 PG/ML) 96.0 Albumin (3.4 - 5.0 g/dL) 1.50 L 08/19 08/19 08/19 08/19 0805 0737 0737 0445 Chemistry Sodium (134 - 147 mEq/L) 130 L 130 L Potassium (3.4 - 5.0 mEq/L) 3.3 L 3.0 L Chloride (100 - 108 mEq/L) 103 102 Carbon Dioxide (21 - 33 mEq/l) 20 L 22 Anion Gap (0 - 20) 10 10 BUN (7 - 18 mg/dL) 42 H 43 H Creatinine (0.6 - 1.3 mg/dL) 1.2 1.3 Glomerular Filtr Rate (90 - 95) 70.1 L 63.7 L Glucose (70 - 110 mg/dL) 322 H 359 H POC Glucose (70 - 110 MG/DL) 292 H Calcium (8.0 - 10.5 mg/dL) 8.2 7.7 L Phosphorus (2.5 - 4.9 MG/DL) 2.6 2.9 Magnesium (1.80 - 2.40 mg/dL) 2.13 2.13 Iron (35 - 150 mcg/dL) 8 L TIBC (260 - 445 mcg/dL) 148 L % Saturation (14 - 34 %) 5.4 L Unsat Iron Binding (mcg/dL) 140 Ferritin (23.9 - 336.2 ng/mL) 2429.2 H Total Bilirubin (0.0 - 1.0 mg/dL) 0.60 AST (15 - 37 IUnit/L) 27 ALT (30 - 65 IUnit/L) 13 L Total Alk Phosphatase (20 - 125 IUnit/L) 150 H Total Protein (6.4 - 8.2 g/dL) 5.6 L Albumin (3.4 - 5.0 g/dL) 1.60 L 1.50 L Vitamin B12 (193 - 986 pg/mL) 5883 H Folate (3.1 - 17.5 ng/mL) 9.5 08/19 08/19 08/19 08/19 0340 0332 0330 0101 Chemistry POC Glucose (70 - 110 MG/DL) 332 H 296 H Hemoglobin A1c (4.8 - 6.0 %A1C) > 14.0 H Ionized Calcium Mitzi (1.09 - 1.30 MMOL/L) 1.07 L Hematology WBC (4.5 - 11.0 x10 3/uL) 21.3 H RBC (4.00 - 5.60 x10 6/uL) 2.80 L Hgb (12.5 - 16.9 g/dL) 7.6 L Hct (37.5 - 50.7 %) 22.3 L MCV (81.0 - 99.0 fL) 79.6 L MCH (27.0 - 33.0 pg) 27.1 MCHC (33.0 - 37.0 g/dL) 34.1 RDW (11.5 - 14.5 %) 14.0 Plt Count (150 - 400 x10 3/uL) 227 MPV (7.0 - 9.0 fL) 9.9 H Neut % (Auto) (56.0 - 77.0 %) 89.9 H Lymph % (Auto) (14.0 - 32.0 %) 4.3 L Boundary % (Auto) (4.8 - 9.0 %) 3.1 L Eos % (Auto) (0.3 - 3.7 %) 0.0 L Baso % (Auto) (0.0 - 2.0 %) 0.3 Neut # (Auto) (2.0 - 7.6 x10 3/uL) 19.17 H Lymph # (Auto) (1.0 - 3.8 x10 3/uL) 0.91 L Boundary # (Auto) (0.1 - 0.8 x10 3/uL) 0.67 Eos # (Auto) (0.0 - 0.2 x10 3/uL) 0.01 Baso # (Auto) (0.0 - 0.2 x10 3/uL) 0.07 Abs Immat Gran (auto) (0.00 - 0.03 x10 3/uL) 0. 51 H Add Manual Diff NO Immature Gran % (0.0 - 2.0 %) 2.4 H Nucleated RBC % (0 - 0 %) 0.0 Nucleated RBCs # (Man) (0.0 - 0.1 x10 3/uL) 0.0 0 08/18 08/18 08/18 08/18 2246 2157 1854 1653 Chemistry Sodium (134 - 147 mEq/L) 129 L Potassium (3.4 - 5.0 mEq/L) 3.3 L Chloride (100 - 108 mEq/L) 102 Carbon Dioxide (21 - 33 mEq/l) 20 L Anion Gap (0 - 20) 10 BUN (7 - 18 mg/dL) 44 H Creatinine (0.6 - 1.3 mg/dL) 1.3 Glomerular Filtr Rate (90 - 95) 63.7 L Glucose (70 - 110 mg/dL) 296 H POC Glucose (70 - 110 MG/DL) 265 H 226 H 223 H Calcium (8.0 - 10.5 mg/dL) 7.7 L Phosphorus (2.5 - 4.9 MG/DL) 2.8 Magnesium (1.80 - 2.40 mg/dL) 2.13 Albumin (3.4 - 5.0 g/dL) 1.70 L Microbiology: Date/Time Procedure - Status Source Growth 08/19 1209 Wound Culture - RES ABSCESS 08/19 121 Anaerobic Culture - RES ABSCESS 08/19 1209 Gram Stain - RES ABSCESS Recent Impressions: ULTRASOUND - DUP LE ART UNI/LTD 08/19 0950 Report Impression - Status: SIGNED Entered: 08/19/2022 1056 IMPRESSION: No sonographic evidence for flow-limiting stenos is in the right lower extremity arterial system. Impression By: [email or web address] - Abraham Ross M.D. Laboratory Tests: 08/18 08/18 08/18 08/18 08/18 1430 1430 1404 1309 1203 Chemistry Sodium (134 - 147 mEq/L) 131 L Potassium (3.4 - 5.0 mEq/L) 3.4 Chloride (100 - 108 mEq/L) 101 Carbon Dioxide (21 - 33 mEq/l) 24 Anion Gap (0 - 20) 9 BUN (7 - 18 mg/dL) 58 H Creatinine (0.6 - 1.3 mg/dL) 1.4 H Glomerular Filtr Rate (90 - 95) 58.3 L Glucose (70 - 110 mg/dL) 207 H POC Glucose (70 - 110 MG/DL) 195 H 213 H 201 H Calcium (8.0 - 10.5 mg/dL) 7.8 L Phosphorus (2.5 - 4.9 MG/DL) 2.2 L Magnesium (1.80 - 2.40 mg/dL) 2.09 Albumin (3.4 - 5.0 g/dL) 1.60 L Triglycerides (40 - 150 mg/dL) 161 H Cholesterol (<200 mg/dL) 90 LDL Cholesterol Measurd (0 - 100 mg/dL) 33.0 HDL Cholesterol (32 - 72 mg/dL) < 20.0 L Cholesterol/HDL Ratio (3.43 - 4.97 4.00 RATIO) TSH (0.42 - 5.47) 0.96 Free T4 (0.77 - 1.61 ng/dL) 0.7 L 08/18 08/18 08/18 08/18 08/18 1107 1004 0900 0823 0549 Chemistry POC Glucose (70 - 110 MG/DL) 223 H 304 H 405 H 449 H Hemoglobin A1c (4.8 - 6.0 %A1C) 13.4 H 08/18 08/18 08/18 0549 0305 0207 Blood Gas Puncture Site R Radial O2 Saturation (90 - 100 %) 97.9 ABG pH (7.35 - 7.45) 7.309 L ABG pCO2 (35.0 - 45 mmHg) 22.3 *L ABG pO2 (80 - 100.0 mmHg) 108.0 H ABG PO2/FiO2 Ratio (mm/Hg) 514.28 ABG HCO3 (22.0 - 26.0 MMOL/L) 11.2 *L ABG Total CO2 11.9 ABG Base Excess (-4.0 - 4.0 MMOL/L) -15.1 L Neto Test Positive O2 Delivery Device Room Air FiO2 (%) 21 Chemistry Sodium (134 - 147 mEq/L) 121 *L Potassium (3.4 - 5.0 mEq/L) 4.1 Chloride (100 - 108 mEq/L) 90 L Carbon Dioxide (21 - 33 mEq/l) 15 L Anion Gap (0 - 20) 20 BUN (7 - 18 mg/dL) 62 H Creatinine (0.6 - 1.3 mg/dL) 1.7 H Glomerular Filtr Rate (90 - 95) 46.2 L Glucose (70 - 110 mg/dL) 692 *H Calcium (8.0 - 10.5 mg/dL) 7.5 L Phosphorus (2.5 - 4.9 MG/DL) 4.8 Magnesium (1.80 - 2.40 mg/dL) 2.34 Albumin (3.4 - 5.0 g/dL) 1.60 L Serology Influenza Type A (PCR) (Negative) Negative Influenza Type B (PCR) (Negative) Negative Toxicology Acetone, Quant (Neg - <20 mg/dL) Large - 80-100 mg/dL 08/18 08/18 08/18 0205 0203 0203 Chemistry Sodium (134 - 147 mEq/L) 115 *L Potassium (3.4 - 5.0 mEq/L) 4.4 Chloride (100 - 108 mEq/L) 84 L Carbon Dioxide (21 - 33 mEq/l) 14 L Anion Gap (0 - 20) 21 H BUN (7 - 18 mg/dL) 60 H Creatinine (0.6 - 1.3 mg/dL) 1.9 H Glomerular Filtr Rate (90 - 95) 40.4 L Glucose (70 - 110 mg/dL) 709 *H Lactic Acid (0.4 - 1.9 mmol/L) 1.2 Calcium (8.0 - 10.5 mg/dL) 8.5 Total Bilirubin (0.0 - 1.0 mg/dL) 0.40 Direct Bilirubin (0.0 - 0.30 MG/DL) 0.20 Indirect Bilirubin (MG/DL) 0.20 AST (15 - 37 IUnit/L) 14 L ALT (30 - 65 IUnit/L) 10 L Total Alk Phosphatase (20 - 125 IUnit/L) 157 H Troponin I High Sens (0 - 54 ng/L) 4 Total Protein (6.4 - 8.2 g/dL) 6.4 Albumin (3.4 - 5.0 g/dL) 1.80 L Lipase (13 - 57 U/L) 24 Hematology WBC (4.5 - 11.0 x10 3/uL) 26.5 H RBC (4.00 - 5.60 x10 6/uL) 3.36 L Hgb (12.5 - 16.9 g/dL) 9.0 L Hct (37.5 - 50.7 %) 28.3 L MCV (81.0 - 99.0 fL) 84.2 MCH (27.0 - 33.0 pg) 26.8 L MCHC (33.0 - 37.0 g/dL) 31.8 L RDW (11.5 - 14.5 %) 14.5 Plt Count (150 - 400 x10 3/uL) 355 MPV (7.0 - 9.0 fL) 9.9 H Add Manual Diff YES Seg Neutrophils % (37 - 69 %) 70.0 H Band Neutrophils % (0.0 - 10.0 %) 12.7 H Lymphocytes % (Manual) (23 - 55 %) 3.7 L Monocytes % (Manual) (0 - 10 %) 9.1 Metamyelocytes (0.0 - 0.0 %) 2.7 H Myelocytes (0.0 - 0.0 %) 0.9 H Promyelocytes (0 - 0 %) 0.9 H Platelet Estimate (ADEQUATE THOUSAND) Adequate Plt Morphology Comment NORMAL Polychromasia 3+ Poikilocytosis 3+ Anisocytosis 1+ Macrocytosis 1+ Serology SARS-CoV-2 Ag (Rapid) (Negative) Negative Toxicology Salicylates (0.0 - 20.0 mg/dL) 5.6 Microbiology: Date/Time Procedure - Status Source Growth 08/18 914 Wound Culture - ORD FOOT 08/18 206 Wound Culture - RECD FOOT 08/18 206 Group A Streptococcus Screen ([facility]) - COMP THROAT 08/18 206 Streptococcus Culture - COMP THROAT 08/18 202 Blood Culture - RES BLOOD 08/18 202 Blood Culture Gram Stain - RES BLOOD 08/18 202 Blood Culture - RES BLOOD 08/18 202 Blood Culture Gram Stain - RES BLOOD Recent Impressions: RADIOLOGY - XR CHEST 2 V 08/18 0201 Report Impression - Status: SIGNED Entered: 08/18/2022 0317 IMPRESSION: Ill-defined somewhat nodular opacity measuring 3 .2 cm laterally in the right mid lung suspicious for rounded pneumo ro given provided history, but underlying neoplasm can not be excl uded. Followup radiographs are recommended after appropriate tr eatment in order to document complete resolution and exclude an unde rlying process or neoplasm. Impression By: [email or web address] - Dom Adams M.D. RADIOLOGY - XR FOOT 3 + V RT 08/18 0238 Report Impression - Status: SIGNED Entered: 08/18/2022 0358 IMPRESSION: No acute osseous findings. No convincing evidenc e for osteomyelitis. MRI is more sensitive for detecti ng osteomyelitis. Impression By: Ankur Ladd M.D. CAT SCAN - CT ABD PELVIS W/CONT 08/18 0339 Report Impression - Status: SIGNED Entered: 08/18/2022 0546 IMPRESSION: 3.3 cm hypodensity in the left posterior prostat e or seminal vesicle. This could represent an abscess. Contra st-enhanced MRI of the pelvis would be helpful for further evaluati on. No acute intra-abdominal findings otherwise. Impression By: Ankur Ladd M.D. CAT SCAN - CT LOWER EXTRM W/O C RT 08/18 0645 Report Impression - Status: SIGNED Entered: 08/18/2022 0827 IMPRESSION: Extensive soft tissue edema with mottled gas in the subcutaneous and intramuscular compartments of the foot abhishek tible with gas-forming infection. Disease extends into the visualized distal leg. Impression By: Jamel Dorantes M.D. 1. Diabetes mellitus type 2 uncontrolled with co mplications. 2. DKA 3. Cellulitis and gangrene of the right foot. 4. Sepsis 5. Altered mental status 6. High LFTs Blood sugar 151-163. mg/dL.A gap 5 HbA1c 13.4% White count 17.9 Sodium 121. Adjust insulin dose. Wound care and IV antibiotics. For wound debridement. Electronically Signed by Braxton Chapin MD on 09/14 at 1731 RPT #:[id number] END OF REPORT 2022-08-26 15:50:00-00:00 [facility]) Cardiology Progress Note REPORT#:[id number] REPORT STATUS: Signed DATE:08/26/22 TIME: 1550 PATIENT: KARMA ROWLAND UNIT #: [id number] ROOM/BED: [place] [address] : 63 AGE: 56 SEX: M ATTEND: Mikayla Ramires MD ADM AUTHOR: Rohit Benitez CLAY MILLER * ALL edits or amendments must be made on the [employer]/computer document * Rohit Benitez 08/26/22 1550: Subjective Chief complaint: foot infection Free Text Subj Notes Free Text Subj Notes: Patient seen and evaluated. Resting in bed, no n ew cardiac complaint. Telemetry sinus rhythm Objective General VS/I O: 24 hour I O ending at 0700: 08/26 0700 08/25 1900 Intake Total 440.00 150.00 Output Total 750 725 Balance -310.00 -575.00 Intake, IV 200.00 150.00 Intake, Oral 240 Output, Urine 750 725 Vital Signs: Date Time Temp Pulse Resp B/P B/P Pulse O2 O2 F low FiO2 Mean Ox Delivery Rate 08/26 1430 98.1 84 16 150/69 100 08/26 1411 98.0 84 16 152/67 100 04/04 0600 84 19 121/58 83 99 04/04 0500 86 14 114/59 83 98 04/04 0400 98.2 04/04 0400 88 14 127/60 87 99 04/04 0300 89 17 130/59 88 97 04/04 0200 90 16 124/60 86 98 04/04 0100 92 13 129/61 88 99 04/04 0020 93 17 122/59 84 99 04/04 0000 98.4 04/04 0000 94 22 135/69 94 100 04/03 2300 92 15 129/60 86 99 04/03 2201 100 20 156/75 108 100 04/03 2100 96 17 138/62 89 100 04/03 2000 98.6 04/03 2000 95 18 149/69 99 100 04/03 1900 96 13 135/61 88 98 04/03 1800 98 17 153/70 101 100 04/03 1701 96 21 139/63 90 100 04/03 1600 98.7 04/03 1600 96 19 121/71 91 85 PATIENT WEIGHT: Weight (lb): 160 Weight (oz): 15 Weight (kg): 72.575 Medications: Active Meds + DC'd Last 24 Hrs Bupivacaine HCl (MARCAINE 0.5% VIAL) 0 .STK-MED ONE .ROUTE (DC) Gentamicin Sulfate (GARAMYCIN) 0 .STK-MED ONE .R OUTE (DC) Lidocaine HCl (LIDOCAINE HCL/PF) 0 .STK-MED ONE .ROUTE (DC) Fentanyl Citrate (SUBLIMAZE) 0 .STK-MED ONE .ROU TE (DC) Midazolam HCl (VERSED) 0 .STK-MED ONE .ROUTE (DC ) Propofol (DIPRIVAN 200MG/20ML INJECTION) 0 .STK- MED ONE IV (DC) Ceftaroline Fosamil (TEFLARO) 600 MG Q8H IV (CKD ) Sodium Chloride (SODIUM CHLORIDE 0.9%) 100 ML Daptomycin (CUBICIN 500MG) 700 MG Q24H IV (CKD) Sodium Chloride (SODIUM CHLORIDE 0.9%) 50 ML Famotidine (PEPCID) 20 MG BID PO Lorazepam (ATIVAN) 1 MG ONCE PRN IV Sodium Chloride (SODIUM CHLORIDE) 0 ASDIR PRN IV Insulin Glargine (Lantus/Semglee) 25 UNIT BEDTIM E SUBQ Insulin Human Lispro (HUMALOG) 7 UNIT AC SUBQ Insulin Human Lispro (HUMALOG) 0 AC HS SUBQ Dextrose/Water (DEXTROSE 10% IN WATER) 125 ML DIR PRN IV (CKD) Dextrose/Water (DEXTROSE 10% IN WATER) 250 ML DIR PRN IV (CKD) Glucagon (GLUCAGON) 1 MG ASDIR PRN IM Dextrose/Water (Dextrose 10% 1,000 mL) 1,000 ML ASDIR IV Acetaminophen (TYLENOL) 650 MG Q6H PRN PRN PO Bisacodyl (DULCOLAX) 10 MG DAILY PRN PRN RECTAL Docusate Sodium (COLACE) 100 MG Q12H PRN PRN PO Ondansetron HCl (ZOFRAN) 4 MG Q6H PRN PRN IV Heparin Sodium (HEPARIN 5000 UNITS/ML) 5,000 UNI T Q8HR SUBQ Physical Exam General appearance: alert, awake, oriented Neck: no bruit/NL carotids, no JVD Cardiovascular: CV assessment: abnormal S1/S2, regular rate and rhythm, no ectopy Respiratory: clear to auscultation, no distress Lower extremity: LE assessment: edema 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 X 3 Considered stroke alert: no Wound/incision: Location: right foot Psychiatry: normal affect, normal judgment/insig ht, normal mood Results Findings/Data: Laboratory Tests 08/26 08/26 08/25 08/25 0906 0430 2007 1723 Chemistry Sodium (134 - 147 mEq/L) 136 Potassium (3.4 - 5.0 mEq/L) 4.8 Chloride (100 - 108 mEq/L) 109 H Carbon Dioxide (21 - 33 mEq/l) 21 Anion Gap (0 - 20) 11 BUN (7 - 18 mg/dL) 32 H Creatinine (0.6 - 1.3 mg/dL) 1.1 Glomerular Filtr Rate (90 - 95) 77.8 L Glucose (70 - 110 mg/dL) 151 H POC Glucose (70 - 110 MG/DL) 163 H 113 H 132 H Calcium (8.0 - 10.5 mg/dL) 7.7 L Ionized Calcium Mitzi (1.09 - 1.30 MMOL/L) 1.11 Phosphorus (2.5 - 4.9 MG/DL) 4.6 Magnesium (1.80 - 2.40 mg/dL) 1.89 Total Bilirubin (0.0 - 1.0 mg/dL) 0.50 AST (15 - 37 IUnit/L) 19 ALT (30 - 65 IUnit/L) 11 L Total Alk Phosphatase (20 - 125 IUnit/L) 149 H Total Protein (6.4 - 8.2 g/dL) 5.5 L Albumin (3.4 - 5.0 g/dL) 1.30 L Laboratory Tests 08/26 0430 Hematology WBC (4.5 - 11.0 x10 3/uL) 17.7 H RBC (4.00 - 5.60 x10 6/uL) 2.44 L Hgb (12.5 - 16.9 g/dL) 6.7 L Hct (37.5 - 50.7 %) 20.4 L MCV (81.0 - 99.0 fL) 83.6 MCH (27.0 - 33.0 pg) 27.5 MCHC (33.0 - 37.0 g/dL) 32.8 L RDW (11.5 - 14.5 %) 14.7 H Plt Count (150 - 400 x10 3/uL) 253 MPV (7.0 - 9.0 fL) 9.9 H Neut % (Auto) (56.0 - 77.0 %) 87.5 H Lymph % (Auto) (14.0 - 32.0 %) 7.4 L Boundary % (Auto) (4.8 - 9.0 %) 3.9 L Eos % (Auto) (0.3 - 3.7 %) 0.5 Baso % (Auto) (0.0 - 2.0 %) 0.1 Neut # (Auto) (2.0 - 7.6 x10 3/uL) 15.49 H Lymph # (Auto) (1.0 - 3.8 x10 3/uL) 1.31 Boundary # (Auto) (0.1 - 0.8 x10 3/uL) 0.69 Eos # (Auto) (0.0 - 0.2 x10 3/uL) 0.08 Baso # (Auto) (0.0 - 0.2 x10 3/uL) 0.01 Abs Immat Gran (auto) (0.00 - 0.03 x10 3/uL) 0. 11 H Add Manual Diff NO Immature Gran % (0.0 - 2.0 %) 0.6 Nucleated RBC % (0 - 0 %) 0.0 Nucleated RBCs # (Man) (0.0 - 0.1 x10 3/uL) 0.0 0 Laboratory Tests 08/26 0430 Chemistry Magnesium (1.80 - 2.40 mg/dL) 1.89 Diagnosis, Assessment Plan Free Text DxA P Notes Free Text DxA P Notes: Impression: 1. Preop eval/cardiac clearance 2. Infected right foot gas gangrene 3. DKA 4. Sepsis 5. Hypertension 6. Anemia Recommendation: Patient presented for evalua tion of altered mental status, weakness and elevated blood sugar. Diagnosed with DKA and seps is. 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 Known cardiac history of hypertensio n and hyperlipidemia. Denies prior history of CAD, CHF or arrhythmia. EKG abn ormal, NSR with anterior infarct. Vital signs stable. No prior cardiac wo rk-up. -Check echocardiogram -Monitor telemetry for arrhythmia -Monitor blood pressure trend -Wound care and IV antibiotic therapy -Supportive care 08/19: Patient doing better postop, blood pressur e control, currently in sinus rhythm, lower extremity artery Doppler negative for any significant PAD, continue current management from primary team an d podiatry service, continue monitor on telemetry for arrhythmia postop, supp ortive care, discussed with patient and family as well as RN, will follow. 08/21: Patient overall doing well, awake and irish rt today. Blood pressure well controlled. Currently in sinus rhythm to sinus t achycardia, will continue to monitor. Echocardiogram shows LVEF of 55 to 69%, no regional wall motion abnormalities, grade 1 diastolic dysfunction, an d mildly dilated LA. continue antibiotic therapy and wound care. Supportive ca re. Plan of care discussed with patient, RN and Dr. Parham. 08/22: No Significant changes from cardiac stand point. Vital signs stable. Telemetry monitoring reviewed, sinus rhythm to s inus tachycardia. We will continue monitor, sinus tachycardia likely relat ed to underlying infection. Continue wound care and antibiotic therapy. Supp ortive care. Plan of care discussed with patient, RN and Dr. Parham. 08/23: Stable cardiac status. Blood pressure and heart rate well controlled. Continue monitor telemetry. Continue wound care. Plan to transfer to floor. Supportive care. Plan of care discussed with lori hart RN and Dr. Parham. 08/24: Patient overall doing well, remains stabl e from cardiac standpoint. Blood pressure and heart rat e well controlled. No new events noted on telemetry monitoring. Remains in sinus rhythm by physical examination. Continue wound care. Supportive care. Plan of care discussed christopher, RN and Dr. Parham. 08/25: Remain stable from cardiac standpoint. Bl ood pressure well controlled. Currently in sinus rhythm by physical examinatio n. Possible plan for another wound debridement today. Pain management and sup portive care. Plan of care discussed with patient, RN and Dr. Parham. 08/26: Patient remains in sinus rhythm. Blood pr essure well controlled. Plan for aspiration of prostatic cyst today. Plan for right BKA on . We will continue monitor patient postoperatively. C ontinue antibiotic therapy. Supportive care. Plan of care discussed with lori hart RN and Dr. Parham. Gianni Parham 08/27/22 0826: Diagnosis, Assessment Plan Additional comments: Patient was seen and examined at bedside , agree with above assessment and plan as documented by nurse practitioner. Will follow . Electronically Signed by Rohit Benitez NP on 0 08/26/22 at 1832 at 0829 RPT #:[id number] END OF REPORT 2022-08-26 15:05:00-00:[address] [facility] ([facility]) Infectious Dis. Progress Note REPORT#:[id number] REPORT STATUS: Signed DATE:08/26/22 TIME: 1505 PATIENT: KARMA ROWLAND UNIT #: [id number] ROOM/BED: [facility]25-1 : 63 AGE: 56 SEX: M ATTEND: Mikayla Ramires MD ADM AUTHOR: Merry Wolff MD * ALL edits or amendments must be made on the el [employer]/computer document * Subjective Chief complaint: Follow-up on MRSA bacteremia, right lower extrem ity necrotizing soft tissue infection. HPI: PT is a 56yr old male with h istory of diabetes mellitus type 2, hypertension who was admitted with altered mental status and righ t-sided foot infection. According to him, he noticed a blister on his right foot around 3 days prior to presentation. His foot got progressively more sw ollen and erythema extended proximally to his lateral foot and ankle. CT abd omen and pelvis with contrast is concerning for possible prostate abscess. CT of lower extremity without contrast shows extensive sof t tissue edema with mottled gas in the subcutaneous and intramuscular compartments of the foot, comp atible with gas-forming infection. Patient's blood cultures have come ba ck positive for MRSA in 2 out of 2 sets. PT has had persistent (+)Ve cx for MR FREITAS 08/18- 08/22. He underwent a debridement of his foot on 08/19 and cx g rew MRSA. PT was started on Vancomycin and clindamycin on 08/18. His MRI showed a prosta te abscess. 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 08/25 PT is afebrile, his WBX is 17.9, he is awake and alert. at the bedside 08/26 plan for transrectal asp iration today and BKA on 08/28, pt is afebrile, WBC is 17.7, blood cx sent on 08/25 still positive, urine cx sent on 08/25 contaminated Patient reports: Yes: pain controlled. No: cough, diarrhea, fever , headache, nausea, shortness of breath. Portions of this section wer e scribed by Jill Quintero on 08/26/22 at 1505 Objective General VS/I O: Vital Signs Date Temp Pulse Resp B/P B/P Mean Pulse Ox FiO2 08/25-08/26 98.0-98.7 84-100 13-22 114-156/58-7 5 83-108 85-100 Last Documented: Result Date Time Pulse Ox 100 / 1430 B/P 150/69 08/26 1430 Temp 98.1 08/26 1430 Pulse 84 08/26 1430 Resp 16 08/26 1430 B/P Mean 83 / 0600 O2 Delivery Room air 08/24 1900 O2 Flow Rate 2 08/21 0800 Vital Signs: Date Time Temp Pulse Resp B/P B/P Pulse O2 O2 F low FiO2 Mean Ox Delivery Rate 08/26 1430 98.1 84 16 150/69 100 08/26 1411 98.0 84 16 152/67 100 04/04 0600 84 19 121/58 83 99 04/04 0500 86 14 114/59 83 98 04/04 0400 98.2 04/04 0400 88 14 127/60 87 99 04/04 0300 89 17 130/59 88 97 04/04 0200 90 16 124/60 86 98 04/04 0100 92 13 129/61 88 99 04/04 0020 93 17 122/59 84 99 04/04 0000 98.4 04/04 0000 94 22 135/69 94 100 04/03 2300 92 15 129/60 86 99 04/03 2201 100 20 156/75 108 100 04/03 2100 96 17 138/62 89 100 04/03 2000 98.6 04/03 2000 95 18 149/69 99 100 04/03 1900 96 13 135/61 88 98 04/03 1800 98 17 153/70 101 100 04/03 1701 96 21 139/63 90 100 04/03 1600 98.7 04/03 1600 96 19 121/71 91 85 24 hour I O ending at 0700: 08/26 0700 08/25 1900 Intake Total 440.00 150.00 Output Total 750 725 Balance -310.00 -575.00 Intake, IV 200.00 150.00 Intake, Oral 240 Output, Urine 750 725 PATIENT WEIGHT: Weight (lb): 160 Weight (oz): 15 Weight (kg): 72.575 Antibiotic start date: Antibiotic: clindamycin Start Date: 08/18-08/25 Antibiotic: Vancomycin Start Date: 08/18-08/25 Antibiotic: daptomycin Start Date:08/25 Antibiotic: Teflaro Start Date:08/25 Physical Exam General appearance: alert, awake, oriented Wound/incision: Location: right foot currently dressed Head/Eyes: atraumatic, normocephalic Neck: supple/no meningismus, no JVD Cardiovascular: normal heart sounds, regular rat e rhythm, no murmur Respiratory: clear to auscultation, aerating wel l, symmetric expansion Abdomen: non-tender, soft, no distention Extremities: edema, RLE pitting edema noted 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, 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 Considered stroke alert: no Skin: lesions, no rash Psychiatry: normal affect, normal mood Results Findings/Data: Laboratory Tests 04/04 04/04 0408/25 1723 Chemistry Sodium (134 - 147 mEq/L) 136 Potassium (3.4 - 5.0 mEq/L) 4.8 Chloride (100 - 108 mEq/L) 109 H Carbon Dioxide (21 - 33 mEq/l) 21 Anion Gap (0 - 20) 11 BUN (7 - 18 mg/dL) 32 H Creatinine (0.6 - 1.3 mg/dL) 1.1 Glomerular Filtr Rate (90 - 95) 77.8 L Glucose (70 - 110 mg/dL) 151 H POC Glucose (70 - 110 MG/DL) 163 H 113 H 132 H Calcium (8.0 - 10.5 mg/dL) 7.7 L Ionized Calcium Mitzi (1.09 - 1.30 MMOL/L) 1.11 Phosphorus (2.5 - 4.9 MG/DL) 4.6 Magnesium (1.80 - 2.40 mg/dL) 1.89 Total Bilirubin (0.0 - 1.0 mg/dL) 0.50 AST (15 - 37 IUnit/L) 19 ALT (30 - 65 IUnit/L) 11 L Total Alk Phosphatase (20 - 125 IUnit/L) 149 H Total Protein (6.4 - 8.2 g/dL) 5.5 L Albumin (3.4 - 5.0 g/dL) 1.30 L Laboratory Tests 08/26 429 Hematology WBC (4.5 - 11.0 x10 3/uL) 17.7 H RBC (4.00 - 5.60 x10 6/uL) 2.44 L Hgb (12.5 - 16.9 g/dL) 6.7 L Hct (37.5 - 50.7 %) 20.4 L MCV (81.0 - 99.0 fL) 83.6 MCH (27.0 - 33.0 pg) 27.5 MCHC (33.0 - 37.0 g/dL) 32.8 L RDW (11.5 - 14.5 %) 14.7 H Plt Count (150 - 400 x10 3/uL) 253 MPV (7.0 - 9.0 fL) 9.9 H Neut % (Auto) (56.0 - 77.0 %) 87.5 H Lymph % (Auto) (14.0 - 32.0 %) 7.4 L Boundary % (Auto) (4.8 - 9.0 %) 3.9 L Eos % (Auto) (0.3 - 3.7 %) 0.5 Baso % (Auto) (0.0 - 2.0 %) 0.1 Neut # (Auto) (2.0 - 7.6 x10 3/uL) 15.49 H Lymph # (Auto) (1.0 - 3.8 x10 3/uL) 1.31 Boundary # (Auto) (0.1 - 0.8 x10 3/uL) 0.69 Eos # (Auto) (0.0 - 0.2 x10 3/uL) 0.08 Baso # (Auto) (0.0 - 0.2 x10 3/uL) 0.01 Abs Immat Gran (auto) (0.00 - 0.03 x10 3/uL) 0. 11 H Add Manual Diff NO Immature Gran % (0.0 - 2.0 %) 0.6 Nucleated RBC % (0 - 0 %) 0.0 Nucleated RBCs # (Man) (0.0 - 0.1 x10 3/uL) 0.0 0 Laboratory Tests: 08/26 08/26 08/25 08/25 0906 0430 2007 1723 Chemistry Sodium (134 - 147 mEq/L) 136 Potassium (3.4 - 5.0 mEq/L) 4.8 Chloride (100 - 108 mEq/L) 109 H Carbon Dioxide (21 - 33 mEq/l) 21 Anion Gap (0 - 20) 11 BUN (7 - 18 mg/dL) 32 H Creatinine (0.6 - 1.3 mg/dL) 1.1 Glomerular Filtr Rate (90 - 95) 77.8 L Glucose (70 - 110 mg/dL) 151 H POC Glucose (70 - 110 MG/DL) 163 H 113 H 132 H Calcium (8.0 - 10.5 mg/dL) 7.7 L Ionized Calcium Mitzi (1.09 - 1.30 MMOL/L) 1.11 Phosphorus (2.5 - 4.9 MG/DL) 4.6 Magnesium (1.80 - 2.40 mg/dL) 1.89 Total Bilirubin (0.0 - 1.0 mg/dL) 0.50 AST (15 - 37 IUnit/L) 19 ALT (30 - 65 IUnit/L) 11 L Total Alk Phosphatase (20 - 125 IUnit/L) 149 H Total Protein (6.4 - 8.2 g/dL) 5.5 L Albumin (3.4 - 5.0 g/dL) 1.30 L Hematology WBC (4.5 - 11.0 x10 3/uL) 17.7 H RBC (4.00 - 5.60 x10 6/uL) 2.44 L Hgb (12.5 - 16.9 g/dL) 6.7 L Hct (37.5 - 50.7 %) 20.4 L MCV (81.0 - 99.0 fL) 83.6 MCH (27.0 - 33.0 pg) 27.5 MCHC (33.0 - 37.0 g/dL) 32.8 L RDW (11.5 - 14.5 %) 14.7 H Plt Count (150 - 400 x10 3/uL) 253 MPV (7.0 - 9.0 fL) 9.9 H Neut % (Auto) (56.0 - 77.0 %) 87.5 H Lymph % (Auto) (14.0 - 32.0 %) 7.4 L Boundary % (Auto) (4.8 - 9.0 %) 3.9 L Eos % (Auto) (0.3 - 3.7 %) 0.5 Baso % (Auto) (0.0 - 2.0 %) 0.1 Neut # (Auto) (2.0 - 7.6 x10 3/uL) 15.49 H Lymph # (Auto) (1.0 - 3.8 x10 3/uL) 1.31 Boundary # (Auto) (0.1 - 0.8 x10 3/uL) 0.69 Eos # (Auto) (0.0 - 0.2 x10 3/uL) 0.08 Baso # (Auto) (0.0 - 0.2 x10 3/uL) 0.01 Abs Immat Gran (auto) (0.00 - 0.03 x10 3/uL) 0. 11 H Add Manual Diff NO Immature Gran % (0.0 - 2.0 %) 0.6 Nucleated RBC % (0 - 0 %) 0.0 Nucleated RBCs # (Man) (0.0 - 0.1 x10 3/uL) 0.0 0 04/03 04/03 04/03 04/03 1111 1044 1044 0750 Chemistry Sodium (134 - 147 mEq/L) 135 Potassium (3.4 - 5.0 mEq/L) 4.5 5.4 H Chloride (100 - 108 mEq/L) 110 H Carbon Dioxide (21 - 33 mEq/l) 19 L Anion Gap (0 - 20) 11 BUN (7 - 18 mg/dL) 25 H Creatinine (0.6 - 1.3 mg/dL) 1.1 Glomerular Filtr Rate (90 - 95) 77.8 L Glucose (70 - 110 mg/dL) 162 H POC Glucose (70 - 110 MG/DL) 143 H Calcium (8.0 - 10.5 mg/dL) 7.3 L Ionized Calcium Mitzi (1.09 - 1.30 MMOL/L) 0.96 L Phosphorus (2.5 - 4.9 MG/DL) 4.5 Magnesium (1.80 - 2.40 mg/dL) 1.88 Total Bilirubin (0.0 - 1.0 mg/dL) 0.50 AST (15 - 37 IUnit/L) 40 H ALT (30 - 65 IUnit/L) 21 L Total Alk Phosphatase (20 - 125 IUnit/L) 159 H Total Creatine Kinase (46 - 171 Units/L) 17 L Total Protein (6.4 - 8.2 g/dL) 5.6 L Albumin (3.4 - 5.0 g/dL) 1.30 L Hematology WBC (4.5 - 11.0 x10 3/uL) 17.9 H RBC (4.00 - 5.60 x10 6/uL) 2.64 L Hgb (12.5 - 16.9 g/dL) 7.3 L Hct (37.5 - 50.7 %) 22.6 L MCV (81.0 - 99.0 fL) 85.6 MCH (27.0 - 33.0 pg) 27.7 MCHC (33.0 - 37.0 g/dL) 32.3 L RDW (11.5 - 14.5 %) 15.1 H Plt Count (150 - 400 x10 3/uL) 226 MPV (7.0 - 9.0 fL) 10.7 H Neut % (Auto) (56.0 - 77.0 %) 86.3 H Lymph % (Auto) (14.0 - 32.0 %) 8.1 L Boundary % (Auto) (4.8 - 9.0 %) 4.3 L Eos % (Auto) (0.3 - 3.7 %) 0.5 Baso % (Auto) (0.0 - 2.0 %) 0.1 Neut # (Auto) (2.0 - 7.6 x10 3/uL) 15.44 H Lymph # (Auto) (1.0 - 3.8 x10 3/uL) 1.45 Boundary # (Auto) (0.1 - 0.8 x10 3/uL) 0.77 Eos # (Auto) (0.0 - 0.2 x10 3/uL) 0.09 Baso # (Auto) (0.0 - 0.2 x10 3/uL) 0.02 Abs Immat Gran (auto) (0.00 - 0.03 0.13 H x10 3/uL) Add Manual Diff NO Immature Gran % (0.0 - 2.0 %) 0.7 Nucleated RBC % (0 - 0 %) 0.0 Nucleated RBCs # (Man) (0.0 - 0.1 0.00 x10 3/uL) Urines Urine Color (YEL/STRAW) YELLOW Urine Appearance (CLEAR) TURBID H Urine pH (5.0 - 7.0) 5.0 Ur Specific [place] (1.005 - 1.030) 1.012 Urine Protein (NEGATIVE) 2+ H Urine Glucose (UA) (NEGATIVE) NEGATIVE Urine Ketones (NEGATIVE) NEGATIVE Urine Blood (NEGATIVE) 2+ H Urine Nitrite (NEGATIVE) NEGATIVE Urine Bilirubin (NEGATIVE) NEGATIVE Urine Urobilinogen (0.2 - 1.0 mg/dL) 0.2 Ur Leukocyte Esterase (NEGATIVE) 3+ H Urine RBC (0 - 3 RBC/HPF) 21-50 Urine WBC (0 - 3 WBC/HPF) >50 H Ur Squamous Epith Cells (NONE SEEN /HPF) NONE S EEN Ur Transition Epith Cell (NONE SEEN /HPF) 3+ H Urine Bacteria (NONE SEEN /HPF) TRACE Urine Mucus (NONE SEEN /LPF) TRACE 08/25 08/24 08/24 08/24 0744 2130 1748 1700 Chemistry POC Glucose (70 - 110 MG/DL) 166 H 140 H 136 H Toxicology Random Vancomycin (mcg/mL) 9.6 Microbiology: Date/Time Procedure - Status Source Growth 08/25 1044 Urine Culture - RES URINE 08/25 1044 Blood Culture - RES BLOOD 08/25 1044 Blood Culture Gram Stain - RES BLOOD 08/25 1044 Blood Culture - RES BLOOD 08/25 1044 Blood Culture Gram Stain - RES BLOOD Medication(s) Ordered: Anti-Infective Agents Sig/Jan Start time Last Medication Dose Route Stop Time Status Admin Gentamicin Sulfate 0 .STK-MED ONE 08/25 1804 DC .ROUTE Ceftaroline Fosamil 600 MG Q8H 08/25 1100 CKD 0 08/26 Sodium Chloride 100 ML IV 09/01 1059 1137 Daptomycin 700 MG Q24H 08/25 1100 CKD 08/26 Sodium Chloride 50 ML IV 09/08 1059 1131 Blood Formation,Coagulation Sig/Jan Start time Last Medication Dose Route Stop Time Status Admin Heparin Sodium 5,000 UNIT Q8HR 08/18 0600 AC SUBQ 09/17 0559 0550 Cardiovascular Drugs Sig/Jan Start time Last Medication Dose Route Stop Time Status Admin Lidocaine HCl 0 .STK-MED ONE 08/25 180 DC .ROUTE Central Nervous System Agents Sig/Jan Start time Last Medication Dose Route Stop Time Status Admin Fentanyl Citrate 0 .STK-MED ONE 08/25 1758 DC .ROUTE Midazolam HCl 0 .STK-MED ONE 08/25 1758 DC .ROUTE Propofol 0 .STK-MED ONE 08/25 1758 DC IV Lorazepam 1 MG ONCE PRN 08/21 0900 AC 08/21 IV 09/20 0859 1143 Acetaminophen 650 MG Q6H PRN PRN 08/18 0945 AC 08/26 PO 09/17 0944 0003 Electrolytic, Caloric, And Daniel Sig/Jan Start time Last Medication Dose Route Stop Time Status Admin Sodium Chloride 0 ASDIR PRN 08/21 0900 AC IV 09/20 0859 Dextrose/Water 125 ML ASDIR PRN 08/20 1530 CKD IV 09/19 1529 Dextrose/Water 250 ML ASDIR PRN 08/20 1530 CKD IV 09/19 1529 Dextrose/Water 1,000 ML ASDIR 08/19 1015 AC IV 09/18 1014 Gastrointestinal Drugs Sig/Jan Start time Last Medication Dose Route Stop Time Status Admin Famotidine 20 MG BID 08/21 2100 AC 08/26 PO 04/29 2059 0908 Bisacodyl 10 MG DAILY PRN PRN 08/18 0945 AC RECTAL 09/17 0944 Docusate Sodium 100 MG Q12H PRN PRN 08/18 0945 AC 08/22 PO 09/17 0944 2109 Ondansetron HCl 4 MG Q6H PRN PRN 08/18 0945 AC IV 09/17 0944 Hormones And Synthetic Substit Sig/Jan Start time Last Medication Dose Route Stop Time Status Admin Insulin Glargine 25 UNIT BEDTIME 08/20 2100 AC 08/24 SUBQ 09/19 205 2132 Insulin Human Lispro 7 UNIT AC 08/20 1630 AC SUBQ 09/19 1629 1755 Insulin Human Lispro 0 AC HS 08/20 1630 AC 04 2 SUBQ 09/19 1629 0805 Glucagon 1 MG ASDIR PRN 08/20 1530 AC IM 09/19 1529 Local Anesthetics (Parenteral) Sig/Jan Start time Last Medication Dose Route Stop Time Status Admin Bupivacaine HCl 0 .STK-MED ONE 08/25 1804 DC .ROUTE Microbiology: 08/25 1044 URINE: Urine Culture - RES 08/25 1044 BLOOD: Blood Culture - RES 08/25 1044 BLOOD: Blood Culture Gram Stain - RES 08/25 1044 BLOOD: Blood Culture - RES 08/25 1044 BLOOD: Blood Culture Gram Stain - RES Portions of this section wer e scribed by Jill Quintero on 08/26/22 at 1505 Treatment Prophylaxis Treatment Prophylaxis Lines: peripheral Portions of this section wer e scribed by Jill Quintero on 08/26/22 at 1505 Diagnosis, Assessment Plan Free Text A P: Assessment: *MRSA bacteremia *Severe sepsis due to above *Right lower extremity necrotizing fasciitis -MRI of foot (+)Ve for osteomyelitis -s/p debridement on 08/19 *DKA *Prostatic abscess *ERIKA *Hyponatremia *Diabetic neuropathy *Diabetes mellitus type 2 *Hypertension -Initial blood cultures from 08/18/2022 positive for MRSA in 2 out of 2 sets. -Repeat blood cultures 08/21/2022 are already po sitive for MRSA in 2 out of 2 sets, suggesting persistent high-grade bacteremi a. -Wound culture also positive for MRSA -TTE 08/18/2022 negative for any obvious vegetat ions. -Went to the OR 08/19/2022 per podiatry for an I D. Plan: 08/25 -Discussed the possibility of amputation with david cavazos and family at bedside -Recommend JIMENA. -Repeat blood cultures x2 again today. -Continue to repeat serial blood cultures till b acteremia clears. -D/C clindamycin and vancomycin. -start on DAptomycin and Teflaro -check urine cx Discussed with Dr. Bass about MRI report 08/26 -plan for transrectal aspiration of abscess toda y -repeat blood cx are still (+)Ve; will repeat bl ood cx tomorrow -cont on daptomycin and Teflaro day #2 -Pt needs a JIMENA r/o endocarditis as pt has high grade persistent bacteremia -plan for Right BKA on 08/28 Portions of this section wer e scribed by Jill Quintero on 08/26/22 at 1505 at 1812 RPT #:[id number] END OF REPORT 2022-08-26 10:10:00-00:00 [facility] ([facility]) Orthopaedic Consult Note REPORT#:[id number] REPORT STATUS: Signed DATE:08/26/22 TIME: 1010 PATIENT: KARMA ROWLAND UNIT #: [id number] ROOM/BED: M325-1 : 63 AGE: 56 SEX: M ATTEND: Mikayla Ramires MD ADM AUTHOR: Nixon Leroy MD * ALL edits or amendments must be made on the el [employer]/computer document * History of Present Illness Time At Bedside )( Time at bedside: 1011 Requesting clinician: Dr. Pedersen Reason for consult: right foot/ankle gas gangren e Chief complaint: right foot/ankle infection PCP: PCP: No Primary or Family Physician HPI: 56 yo male evaluated at beds [facility]. Patient presented to ER on 08/18 with worsening confusion over the last several days as well as wounds and worsening presentation to the right foot. Dr. 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 Patient went to OR for urgent debridement. He has been h [facility] [place] wound care manage wound. Patient is at high risk for amputati on from Infectious disease and podiatry standpoint. Called to evaluate and to discuss below knee amp utation. History - Adult longitudinal Additional medical history: DM 2 since age 33 DM neuropathy HTN hyperlipidemia Additional surgical history: as above Additional family history: reviewed and non contributory Alcohol use: Denies EtOH use Drug use: Denies recreational drugs Smoking status for patients 13 years old or olde r: Former Smoker Other social history: [place] resident, [place] support Allergies: Coded Allergies: No Known Allergies (03/23/11) Review of Systems All systems rev neg: except as marked (MSK-infec tion) Objective VS: Last Documented: Result Date Time Pulse Ox 99 04/ 0600 B/P 121/58 04/ 0600 B/P Mean 83 / 0600 Pulse 84 / 0600 Resp 19 / 0600 Temp 36.8 / 0400 O2 Delivery Room air 08/24 1900 O2 Flow Rate 2 08/21 0800 PATIENT WEIGHT: Weight (lb): 160 Weight (oz): 15 Weight (kg): 72.575 Medications: Active Meds + DC'd Last 24 Hrs Bupivacaine HCl (MARCAINE 0.5% VIAL) 0 .STK-MED ONE .ROUTE (DC) Gentamicin Sulfate (GARAMYCIN) 0 .STK-MED ONE .R OUTE (DC) Lidocaine HCl (LIDOCAINE HCL/PF) 0 .STK-MED ONE .ROUTE (DC) Fentanyl Citrate (SUBLIMAZE) 0 .STK-MED ONE .ROU TE (DC) Midazolam HCl (VERSED) 0 .STK-MED ONE .ROUTE (DC ) Propofol (DIPRIVAN 200MG/20ML INJECTION) 0 .STK- MED ONE IV (DC) Heparin Sodium (HEPARIN SODIUM) 0 .STK-MED ONE I V (DC) Ceftaroline Fosamil (TEFLARO) 600 MG Q8H IV (CK D) Sodium Chloride (SODIUM CHLORIDE 0.9%) 100 ML Daptomycin (CUBICIN 500MG) 700 MG Q24H IV (CKD) Sodium Chloride (SODIUM CHLORIDE 0.9%) 50 ML Famotidine (PEPCID) 20 MG BID PO Lorazepam (ATIVAN) 1 MG ONCE PRN IV Sodium Chloride (SODIUM CHLORIDE) 0 ASDIR PRN IV Insulin Glargine (Lantus/Semglee) 25 UNIT BEDTIM E SUBQ Insulin Human Lispro (HUMALOG) 7 UNIT AC SUBQ Insulin Human Lispro (HUMALOG) 0 AC HS SUBQ Dextrose/Water (DEXTROSE 10% IN WATER) 125 ML DIR PRN IV (CKD) Dextrose/Water (DEXTROSE 10% IN WATER) 250 ML DIR PRN IV (CKD) Glucagon (GLUCAGON) 1 MG ASDIR PRN IM Dextrose/Water (Dextrose 10% 1,000 mL) 1,000 ML ASDIR IV Acetaminophen (TYLENOL) 650 MG Q6H PRN PRN PO Bisacodyl (DULCOLAX) 10 MG DAILY PRN PRN RECTAL Docusate Sodium (COLACE) 100 MG Q12H PRN PRN PO Ondansetron HCl (ZOFRAN) 4 MG Q6H PRN PRN IV Heparin Sodium (HEPARIN 5000 UNITS/ML) 5,000 UNI T Q8HR SUBQ Physical Exam General appearance: alert, awake, oriented Ankle-right: multiple open surgical inci keisha to the medial, lateral and dorums of foot. lateral wound extends to lateral ankle. The lateral wounds have demarcated. packing in place. able to weakly fle x/ext toes/ankle. sensory and vascular exam limited due to extensive soft tiss ue damage and surgery Considered stroke alert: no Results Findings/data: Laboratory Tests 08/26 08/26 08/25 08/25 08/25 0906 0430 2007 1723 1111 Chemistry Sodium (134 - 147 mEq/L) 136 Potassium (3.4 - 5.0 mEq/L) 4.8 Chloride (100 - 108 mEq/L) 109 H Carbon Dioxide (21 - 33 mEq/l) 21 Anion Gap (0 - 20) 11 BUN (7 - 18 mg/dL) 32 H Creatinine (0.6 - 1.3 mg/dL) 1.1 Glomerular Filtr Rate (90 - 95) 77.8 L Glucose (70 - 110 mg/dL) 151 H POC Glucose (70 - 110 MG/DL) 163 H 113 H 132 H 143 H Calcium (8.0 - 10.5 mg/dL) 7.7 L Ionized Calcium Mitzi (1.09 - 1.30 1.11 MMOL/L) Phosphorus (2.5 - 4.9 MG/DL) 4.6 Magnesium (1.80 - 2.40 mg/dL) 1.89 Total Bilirubin (0.0 - 1.0 mg/dL) 0.50 AST (15 - 37 IUnit/L) 19 ALT (30 - 65 IUnit/L) 11 L Total Alk Phosphatase (20 - 125 149 H IUnit/L) Total Protein (6.4 - 8.2 g/dL) 5.5 L Albumin (3.4 - 5.0 g/dL) 1.30 L 08/25 08/25 1044 1044 Chemistry Potassium (3.4 - 5.0 mEq/L) 4.5 Total Creatine Kinase (46 - 171 Units/L) 17 L Laboratory Tests 08/26 0430 Hematology WBC (4.5 - 11.0 x10 3/uL) 17.7 H RBC (4.00 - 5.60 x10 6/uL) 2.44 L Hgb (12.5 - 16.9 g/dL) 6.7 L Hct (37.5 - 50.7 %) 20.4 L MCV (81.0 - 99.0 fL) 83.6 MCH (27.0 - 33.0 pg) 27.5 MCHC (33.0 - 37.0 g/dL) 32.8 L RDW (11.5 - 14.5 %) 14.7 H Plt Count (150 - 400 x10 3/uL) 253 MPV (7.0 - 9.0 fL) 9.9 H Neut % (Auto) (56.0 - 77.0 %) 87.5 H Lymph % (Auto) (14.0 - 32.0 %) 7.4 L Boundary % (Auto) (4.8 - 9.0 %) 3.9 L Eos % (Auto) (0.3 - 3.7 %) 0.5 Baso % (Auto) (0.0 - 2.0 %) 0.1 Neut # (Auto) (2.0 - 7.6 x10 3/uL) 15.49 H Lymph # (Auto) (1.0 - 3.8 x10 3/uL) 1.31 Boundary # (Auto) (0.1 - 0.8 x10 3/uL) 0.69 Eos # (Auto) (0.0 - 0.2 x10 3/uL) 0.08 Baso # (Auto) (0.0 - 0.2 x10 3/uL) 0.01 Abs Immat Gran (auto) (0.00 - 0.03 x10 3/uL) 0. 11 H Add Manual Diff NO Immature Gran % (0.0 - 2.0 %) 0.6 Nucleated RBC % (0 - 0 %) 0.0 Nucleated RBCs # (Man) (0.0 - 0.1 x10 3/uL) 0. 00 Laboratory Tests 08/25 1044 Urines Urine Color (YEL/STRAW) YELLOW Urine Appearance (CLEAR) TURBID H Urine pH (5.0 - 7.0) 5.0 Ur Specific [place] (1.005 - 1.030) 1.012 Urine Protein (NEGATIVE) 2+ H Urine Glucose (UA) (NEGATIVE) NEGATIVE Urine Ketones (NEGATIVE) NEGATIVE Urine Blood (NEGATIVE) 2+ H Urine Nitrite (NEGATIVE) NEGATIVE Urine Bilirubin (NEGATIVE) NEGATIVE Urine Urobilinogen (0.2 - 1.0 mg/dL) 0.2 Ur Leukocyte Esterase (NEGATIVE) 3+ H Urine RBC (0 - 3 RBC/HPF) 21-50 Urine WBC (0 - 3 WBC/HPF) >50 H Ur Squamous Epith Cells (NONE SEEN /HPF) NONE S EEN Ur Transition Epith Cell (NONE SEEN /HPF) 3+ H Urine Bacteria (NONE SEEN /HPF) TRACE Urine Mucus (NONE SEEN /LPF) TRACE Diagnosis, Assessment Plan Free Text A P: 56 yo male with hx of DM and gas gangrene to rig ht foot and ankle s/p I D. 1. Patient will benefit from BKA for infection c ontrol. Discussed with family and patient and are willing to proceed. 2. PT/OT- NWB RLE. 3. Continue abx per ID. 4. Continue local wound care. 5. DVT ppx. 6. Patient liason from [facility] onsulted. 7. Anesthesia pre op eval. 8. Will plan for right BKA on . Electronically Signed by Nixon Leroy MD on 09/14 at 1026 RPT #:[id number] END OF REPORT 2022-08-26 08:12:00-00:[address] [facility] ([facility]) Hospitalist Progress Note REPORT#:[id number] REPORT STATUS: Signed DATE:08/26/22 TIME: 0812 PATIENT: KARMA ROWLAND UNIT #: [id number] ROOM/BED: [facility] : 63 AGE: 56 SEX: M ATTEND: Mikayla Ramires MD ADM AUTHOR: Wilbert Ramires MD * ALL edits or amendments must be made on the el [employer]/computer document * Subjective Chief complaint: AMS and right foot infection. s/p extensive debridement. No acute issues. Pain controlled. p atient agreeable for BKA Review of Systems All systems rev neg: except as noted Objective General VS/I O: Vital Signs: Date Time Temp Pulse Resp B/P B/P Pulse O2 O2 Flow FiO2 Mean Ox Delivery Rate 04/04 0600 84 19 121/58 83 99 04/04 0500 86 14 114/59 83 98 04/04 0400 98.2 04/04 0400 88 14 127/60 87 99 04/04 0300 89 17 130/59 88 97 04/04 0200 90 16 124/60 86 98 04/04 0100 92 13 129/61 88 99 04/04 0020 93 17 122/59 84 99 04/04 0000 98.4 04/04 0000 94 22 135/69 94 100 04/03 2300 92 15 129/60 86 99 04/03 2201 100 20 156/75 108 100 04/03 2100 96 17 138/62 89 100 04/03 2000 98.6 04/03 2000 95 18 149/69 99 100 04/03 1900 96 13 135/61 88 98 04/03 1800 98 17 153/70 101 100 04/03 1701 96 21 139/63 90 100 04/03 1600 98.7 04/03 1600 96 19 121/71 91 85 04/03 1400 91 15 154/77 110 100 04/03 1300 89 19 154/66 95 100 04/03 1200 98.4 04/03 1200 83 19 145/68 98 100 04/03 1100 80 13 120/61 85 99 04/03 1000 81 11 118/61 84 98 04/03 0900 86 16 118/68 90 100 24 hour I O ending at 0700: 04/04 0700 04/03 1900 Intake Total 440.00 150.00 Output Total 750 725 Balance -310.00 -575.00 Intake, IV 200.00 150.00 Intake, Oral 240 Output, Urine 750 725 PATIENT WEIGHT: Weight (lb): 160 Weight (oz): 15 Weight (kg): 72.575 Medications: Active Meds + DC'd Last 24 Hrs Bupivacaine HCl (MARCAINE 0.5% VIAL) 0 .STK-MED ONE .ROUTE (DC) Gentamicin Sulfate (GARAMYCIN) 0 .STK-MED ONE .R OUTE (DC) Lidocaine HCl (LIDOCAINE HCL/PF) 0 .STK-MED ONE .ROUTE (DC) Fentanyl Citrate (SUBLIMAZE) 0 .STK-MED ONE .ROU TE (DC) Midazolam HCl (VERSED) 0 .STK-MED ONE .ROUTE (DC ) Propofol (DIPRIVAN 200MG/20ML INJECTION) 0 .STK- MED ONE IV (DC) Heparin Sodium (HEPARIN SODIUM) 0 .STK-MED ONE I V (DC) Ceftaroline Fosamil (TEFLARO) 600 MG Q8H IV (CKD ) Sodium Chloride (SODIUM CHLORIDE 0.9%) 100 ML Daptomycin (CUBICIN 500MG) 700 MG Q24H IV (CKD) Sodium Chloride (SODIUM CHLORIDE 0.9%) 50 ML Famotidine (PEPCID) 20 MG BID PO Lorazepam (ATIVAN) 1 MG ONCE PRN IV Sodium Chloride (SODIUM CHLORIDE) 0 ASDIR PRN IV Insulin Glargine (Lantus/Semglee) 25 UNIT BEDTIM E SUBQ Insulin Human Lispro (HUMALOG) 7 UNIT AC SUBQ Insulin Human Lispro (HUMALOG) 0 AC HS SUBQ Dextrose/Water (DEXTROSE 10% IN WATER) 125 ML DIR PRN IV (CKD) Dextrose/Water (DEXTROSE 10% IN WATER) 250 ML DIR PRN IV (CKD) Glucagon (GLUCAGON) 1 MG ASDIR PRN IM Dextrose/Water (Dextrose 10% 1,000 mL) 1,000 ML ASDIR IV Acetaminophen (TYLENOL) 650 MG Q6H PRN PRN PO Bisacodyl (DULCOLAX) 10 MG DAILY PRN PRN RECTAL Docusate Sodium (COLACE) 100 MG Q12H PRN PRN PO Ondansetron HCl (ZOFRAN) 4 MG Q6H PRN PRN IV Heparin Sodium (HEPARIN 5000 UNITS/ML) 5,000 UNI T Q8HR SUBQ Miscellaneous Information (VANCOMYCIN PHARMACY T O DOSE) 1 EACH ASDIR IV (DC) Physical Exam General appearance: alert, awake, oriented Head/Eyes: normocephalic ENT: moist mucosal membranes Neck: no JVD Cardiovascular: regular rate rhythm, no heave Respiratory: aerating well, clear to auscultatio n, symmetric expansion, no distress Abdomen: non-tender, normal bowel sounds, soft, no distention Genitourinary: no bladder distention Extremities: R foot in dressing 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 X 3, 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 Considered stroke alert: no Skin: no rash Psychiatry: normal affect, normal judgment/insig ht, normal mood Results Findings/Data: Laboratory Tests 08/26 1723 1111 1044 Chemistry Sodium (134 - 147 mEq/L) 136 Potassium (3.4 - 5.0 mEq/L) 4.8 Chloride (100 - 108 mEq/L) 109 H Carbon Dioxide (21 - 33 mEq/l) 21 Anion Gap (0 - 20) 11 BUN (7 - 18 mg/dL) 32 H Creatinine (0.6 - 1.3 mg/dL) 1.1 Glomerular Filtr Rate (90 - 95) 77.8 L Glucose (70 - 110 mg/dL) 151 H POC Glucose (70 - 110 MG/DL) 113 H 132 H 143 H Calcium (8.0 - 10.5 mg/dL) 7.7 L Ionized Calcium Mitzi (1.09 - 1.30 MMOL/L) 1.11 Phosphorus (2.5 - 4.9 MG/DL) 4.6 Magnesium (1.80 - 2.40 mg/dL) 1.89 Total Bilirubin (0.0 - 1.0 mg/dL) 0.50 AST (15 - 37 IUnit/L) 19 ALT (30 - 65 IUnit/L) 11 L Total Alk Phosphatase (20 - 125 IUnit/L) 149 H Total Creatine Kinase (46 - 171 Units/L) 17 L Total Protein (6.4 - 8.2 g/dL) 5.5 L Albumin (3.4 - 5.0 g/dL) 1.30 L 04/03 1044 Chemistry Potassium (3.4 - 5.0 mEq/L) 4.5 Laboratory Tests 08/26 0430 Hematology WBC (4.5 - 11.0 x10 3/uL) 17.7 H RBC (4.00 - 5.60 x10 6/uL) 2.44 L Hgb (12.5 - 16.9 g/dL) 6.7 L Hct (37.5 - 50.7 %) 20.4 L MCV (81.0 - 99.0 fL) 83.6 MCH (27.0 - 33.0 pg) 27.5 MCHC (33.0 - 37.0 g/dL) 32.8 L RDW (11.5 - 14.5 %) 14.7 H Plt Count (150 - 400 x10 3/uL) 253 MPV (7.0 - 9.0 fL) 9.9 H Neut % (Auto) (56.0 - 77.0 %) 87.5 H Lymph % (Auto) (14.0 - 32.0 %) 7.4 L Boundary % (Auto) (4.8 - 9.0 %) 3.9 L Eos % (Auto) (0.3 - 3.7 %) 0.5 Baso % (Auto) (0.0 - 2.0 %) 0.1 Neut # (Auto) (2.0 - 7.6 x10 3/uL) 15.49 H Lymph # (Auto) (1.0 - 3.8 x10 3/uL) 1.31 Boundary # (Auto) (0.1 - 0.8 x10 3/uL) 0.69 Eos # (Auto) (0.0 - 0.2 x10 3/uL) 0.08 Baso # (Auto) (0.0 - 0.2 x10 3/uL) 0.01 Abs Immat Gran (auto) (0.00 - 0.03 x10 3/uL) 0. 11 H Add Manual Diff NO Immature Gran % (0.0 - 2.0 %) 0.6 Nucleated RBC % (0 - 0 %) 0.0 Nucleated RBCs # (Man) (0.0 - 0.1 x10 3/uL) 0.0 0 Laboratory Tests 08/25 1044 Urines Urine Color (YEL/STRAW) YELLOW Urine Appearance (CLEAR) TURBID H Urine pH (5.0 - 7.0) 5.0 Ur Specific [place] (1.005 - 1.030) 1.012 Urine Protein (NEGATIVE) 2+ H Urine Glucose (UA) (NEGATIVE) NEGATIVE Urine Ketones (NEGATIVE) NEGATIVE Urine Blood (NEGATIVE) 2+ H Urine Nitrite (NEGATIVE) NEGATIVE Urine Bilirubin (NEGATIVE) NEGATIVE Urine Urobilinogen (0.2 - 1.0 mg/dL) 0.2 Ur Leukocyte Esterase (NEGATIVE) 3+ H Urine RBC (0 - 3 RBC/HPF) 21-50 Urine WBC (0 - 3 WBC/HPF) >50 H Ur Squamous Epith Cells (NONE SEEN /HPF) NONE S EEN Ur Transition Epith Cell (NONE SEEN /HPF) 3+ H Urine Bacteria (NONE SEEN /HPF) TRACE Urine Mucus (NONE SEEN /LPF) TRACE Diagnosis, Assessment Plan Free Text DxA P Notes Free text DxA P notes: DKA DM 2, poorly controlled severe gas gangrene, right foot/necrotizing fasc itis MRSA bacteremia ERIKA severe hyponatremia likely due to combination of severe hyperglycemia and dehydration from DKA sepsis due to foot infection DM neuropathy HTN anemia, acute due to blood loss Plans: - admit to ICU - continue IV fluids aggressively - monitor lytes and AG - IV insulin drip for now until gap closes - endo eval - keep on Vancomycin and Zosyn - podiatry eval - d.w Wojciech Hernandez - likely will need debridement - MRI of foot ordered - endo eval for management of DM. - HgbA1c of 13.4 - Urology consulted for hypodensity in prostate - ? abscess, not likely. not much symptoms - lovenox for VTE - check iron panel, TSH - fall precautions - not much pain needs likely due to neuropathy 08/19/2022 - blood cultures showing MRSA - Echo ordered - continue Vancomycin/Clinda and Meropenem. Id following - podiatry planning for I D today. Surgery on hal farias if needed to further debride his lower leg vs amputation. - WBC improving - will type and cross for blood and transfuse i f less than 7 gms - d.w at bedside - patient and is aware that he may require amputation if his tissues are non viable - remains on Insulin drip. blood sugars in the 200-300 range. AG has closed. endocrine is following. - keep in ICU 08/20/2022 - s/p extensive I D of right foot. - tissue cx showing MRSA - follow echo results - WBC remains elevated - continue IV antibiotics - MRI of pelvis pending to eval prostate lesion - MRI of foot pending to eval for osteo. - wean off insulin drip. Subq insulin and slidi ng scale. endo following - pain controlled - will likely need wound vac and half-way IV a ntibiotic therapy - d/w at bedside - PT/OT 08/21/2022 - continue IV antibitoics - wound care with pulse lavage. will likely nee d wound vac at some point - off insulin drip - tolerating diet. d/c IV fluids - pain controlled - awaiting MRI of his foot and pelvis - fall precautions - transfer to floor 08/22/2022 - continue Vanco and Clinda IV - pulse lavage for wound care - pain control - blood sugars reasonably controlled - mobilize - fall precautions - follow hgb and transfuse as needed - awaiting floor transfer 08/23/2022 - transfuse blood for anemia. no overt blood lo ss - continue IV antibiotics - mobilize - pulse lavage to wound. ? wound vac - continue to monitor blood sugars - floor transfer - d/w 08/24/2022 - follow hgb and transfuse as needed - IV antibiotics - anesthesia consult for MRI - blood sugars ok - pulse lavage - await podiatry eval for wound care - ? wound vac - d.w at bedside 08/25/22 Continue abx (Dapto and Teflaro) as per ID Updated Urology on MRI resul ts, Dr. Bass will review images and discuss with family for possible prostate/seminal vesicle abs cess Cont wound care as per Podiatry, may have debrid ement today BP and BS well controlled K+ high, repeat level Hgb 7.3 stable Discussed with at bedside 08/26/2022 - hgb low. will transfuse 2 units - d.w Dr. Pedersen - patient has lost so much ti ssues in his foot that his potential for wound closure and usabilit y of his foot is poor. Recommendations made to proceed with BKA - continue to monitor blood sugars - IV antibitoics - wound care - urology planning for aspiration of prostatic cyst seen on MRI. PSA normal - OOB Electronically Signed by Wilbert Ramires MD on at 0638 [facility] #:[id number] END OF REPORT 2022-08-25 21:29:00-00:[address] [facility] ([facility]) Podiatry Progress Note REPORT#:[id number] REPORT STATUS: Signed DATE:08/25/22 TIME: 2128 PATIENT: KARMA ROWLAND UNIT #: [id number] ROOM/BED: [address] : 61 AGE: 56 SEX: M ATTEND: Mikayla Ramires MD ADM AUTHOR: Liam PedersenM * ALL edits or amendments must be made on the [employer] document * Subjective Chief complaint: seen at bedside,. family memebers next to him denies having any pain foot covered and protected and offloaded drainage noted serosang. increased warmth Patient reports: no confusion, no constipation, no dizziness, no fatigue, no headache, no itching, no nausea Comments: pt in ICU i spent a total of over 2 hours came and met with pt and sister this am for a lo ng time. two more conversations later in day with more fa siddharth and relatives. events noted. Objective General VS: Last Documented: Result Date Time Temp 37.0 08/26 1999 Pulse Ox 100 08/26 1999 B/P 149/69 08/26 1999 B/P Mean 99 08/26 1999 Pulse 95 08/26 1999 Resp 18 08/26 1999 O2 Delivery Room air 08/24 1900 O2 Flow Rate 2 08/21 0800 PATIENT WEIGHT: Weight (lb): 160 Weight (oz): 15 Weight (kg): 72.575 Medications: Active Meds + DC'd Last 24 Hrs Bupivacaine HCl (MARCAINE 0.5% VIAL) 0 .STK-MED ONE .ROUTE (DC) Gentamicin Sulfate (GARAMYCIN) 0 .STK-MED ONE .R OUTE (DC) Lidocaine HCl (LIDOCAINE HCL/PF) 0 .STK-MED ONE .ROUTE (DC) Fentanyl Citrate (SUBLIMAZE) 0 .STK-MED ONE .ROU TE (DC) Midazolam HCl (VERSED) 0 .STK-MED ONE .ROUTE (DC ) Propofol (DIPRIVAN 200MG/20ML INJECTION) 0 .STK- MED ONE IV (DC) Heparin Sodium (HEPARIN SODIUM) 0 .STK-MED ONE I V (DC) Ceftaroline Fosamil (TEFLARO) 600 MG Q8H IV (CKD ) Sodium Chloride (SODIUM CHLORIDE 0.9%) 100 ML Daptomycin (CUBICIN 500MG) 700 MG Q24H IV (CKD) Sodium Chloride (SODIUM CHLORIDE 0.9%) 50 ML Famotidine (PEPCID) 20 MG BID PO Lorazepam (ATIVAN) 1 MG ONCE PRN IV Sodium Chloride (SODIUM CHLORIDE) 0 ASDIR PRN IV Insulin Glargine (Lantus/Semglee) 25 UNIT BEDTIM E SUBQ Insulin Human Lispro (HUMALOG) 7 UNIT AC SUBQ Insulin Human Lispro (HUMALOG) 0 AC HS SUBQ Dextrose/Water (DEXTROSE 10% IN WATER) 125 ML DIR PRN IV (CKD) Dextrose/Water (DEXTROSE 10% IN WATER) 250 ML DIR PRN IV (CKD) Glucagon (GLUCAGON) 1 MG ASDIR PRN IM Dextrose/Water (Dextrose 10% 1,000 mL) 1,000 ML ASDIR IV Acetaminophen (TYLENOL) 650 MG Q6H PRN PRN PO Bisacodyl (DULCOLAX) 10 MG DAILY PRN PRN RECTAL Docusate Sodium (COLACE) 100 MG Q12H PRN PRN PO Ondansetron HCl (ZOFRAN) 4 MG Q6H PRN PRN IV Heparin Sodium (HEPARIN 5000 UNITS/ML) 5,000 UNI T Q8HR SUBQ Miscellaneous Information (VANCOMYCIN PHARMACY T O DOSE) 1 EACH ASDIR IV (DC) I O: 24 hour I O ending at 0700: 04/03 0700 04/02 1900 Intake Total 1280 Output Total 700 850 Balance -700 430 Intake, Oral 1280 Number 3 Bowel Movements Output, Urine 700 850 Dietitian nutrition assessment The data set between the solid lines has been im ported from the dietitian's assessment. BMI Calculated: 25.8 Nutrition related diagnosis: Nutrition diagnosis details: Nutrition problem: Nutrition etiology: Nutrition signs and symptoms: Nutrition prescription: Dietitian name: Assessment completed: Physical Exam General appearance: alert, awake, oriented, plea delia, conversational, mental status normal Wound/incision: Location: Right foot to right ankle. DP and PT pulses are very weak essentially nonpa lpable. There is severe edema of the right foot to the r ight ankle, better. There is erythema of the right foot to the right ankle, much better. Not really any ascending lymphangitis past there . Crepitation is at the medial right hindfoot and the dorsal right midfoot are significantly less. There is no longer crepitation at the lateral ri ght ankle. There is some bullae that are peeling medial and lateral. Sensation is greatly decreased on the right foot . base of three wounds fibrotic. sero purulent drainage. bones and tendons exposed. Left foot has no ulcers but has OA changes at an kle with some chronic edema. LE vascular pulse assess: Nonpalpable R posterior tibialis, Nonpalpable R dorsalis pedis Considered stroke alert: no Results Findings/Data: Laboratory Tests: 08/25 1723 1111 1044 1044 Chemistry Potassium (3.4 - 5.0 mEq/L) 4.5 POC Glucose (70 - 110 MG/DL) 113 H 132 H 143 H Total Creatine Kinase (46 - 171 17 L Units/L) Urines Urine Color (YEL/STRAW) YELLOW Urine Appearance (CLEAR) TURBID H Urine pH (5.0 - 7.0) 5.0 Ur Specific [place] (1.005 - 1.030) 1.012 Urine Protein (NEGATIVE) 2+ H Urine Glucose (UA) (NEGATIVE) NEGATIVE Urine Ketones (NEGATIVE) NEGATIVE Urine Blood (NEGATIVE) 2+ H Urine Nitrite (NEGATIVE) NEGATIVE Urine Bilirubin (NEGATIVE) NEGATIVE Urine Urobilinogen (0.2 - 1.0 mg/dL) 0.2 Ur Leukocyte Esterase (NEGATIVE) 3+ H Urine RBC (0 - 3 RBC/HPF) 21-50 Urine WBC (0 - 3 WBC/HPF) >50 H Ur Squamous Epith Cells (NONE SEEN NONE SEEN /HPF) Ur Transition Epith Cell (NONE SEEN 3+ H /HPF) Urine Bacteria (NONE SEEN /HPF) TRACE Urine Mucus (NONE SEEN /LPF) TRACE 08/25 08/25 0750 0744 Chemistry Sodium (134 - 147 mEq/L) 135 Potassium (3.4 - 5.0 mEq/L) 5.4 H Chloride (100 - 108 mEq/L) 110 H Carbon Dioxide (21 - 33 mEq/l) 19 L Anion Gap (0 - 20) 11 BUN (7 - 18 mg/dL) 25 H Creatinine (0.6 - 1.3 mg/dL) 1.1 Glomerular Filtr Rate (90 - 95) 77.8 L Glucose (70 - 110 mg/dL) 162 H POC Glucose (70 - 110 MG/DL) 166 H Calcium (8.0 - 10.5 mg/dL) 7.3 L Ionized Calcium Mitzi (1.09 - 1.30 MMOL/L) 0.96 L Phosphorus (2.5 - 4.9 MG/DL) 4.5 Magnesium (1.80 - 2.40 mg/dL) 1.88 Total Bilirubin (0.0 - 1.0 mg/dL) 0.50 AST (15 - 37 IUnit/L) 40 H ALT (30 - 65 IUnit/L) 21 L Total Alk Phosphatase (20 - 125 IUnit/L) 159 H Total Protein (6.4 - 8.2 g/dL) 5.6 L Albumin (3.4 - 5.0 g/dL) 1.30 L Hematology WBC (4.5 - 11.0 x10 3/uL) 17.9 H RBC (4.00 - 5.60 x10 6/uL) 2.64 L Hgb (12.5 - 16.9 g/dL) 7.3 L Hct (37.5 - 50.7 %) 22.6 L MCV (81.0 - 99.0 fL) 85.6 MCH (27.0 - 33.0 pg) 27.7 MCHC (33.0 - 37.0 g/dL) 32.3 L RDW (11.5 - 14.5 %) 15.1 H Plt Count (150 - 400 x10 3/uL) 226 MPV (7.0 - 9.0 fL) 10.7 H Neut % (Auto) (56.0 - 77.0 %) 86.3 H Lymph % (Auto) (14.0 - 32.0 %) 8.1 L Boundary % (Auto) (4.8 - 9.0 %) 4.3 L Eos % (Auto) (0.3 - 3.7 %) 0.5 Baso % (Auto) (0.0 - 2.0 %) 0.1 Neut # (Auto) (2.0 - 7.6 x10 3/uL) 15.44 H Lymph # (Auto) (1.0 - 3.8 x10 3/uL) 1.45 Boundary # (Auto) (0.1 - 0.8 x10 3/uL) 0.77 Eos # (Auto) (0.0 - 0.2 x10 3/uL) 0.09 Baso # (Auto) (0.0 - 0.2 x10 3/uL) 0.02 Abs Immat Gran (auto) (0.00 - 0.03 x10 3/uL) 0. 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 IV antibiotics Monitor leukocytosis NIAS: minimal PVD right 08/18 wound culture: MRSA (This one is not accura te, it is of skin that was intact) 08/19 OR culture: MRSA blood cultures: MRSA Offloading boot ICU for now pulse lavage by physical therapy oralia wrap compression left ankle MRI: osteo of entire hindfoot essentially met with pt and family. had on OR schedule. pt and family ultimately decided on BKA right. consulted dr. Leroy for BKA. spoke with him dir ectly. Electronically Signed by Reyhani,Liam X DPM on 0 08/25/22 at 2135 RPT #:[id number] END OF REPORT 2022-08-25 18:38:00-00:[address] [facility] ([facility]) Endocrinology Progress Note REPORT#:[id number] REPORT STATUS: Signed DATE:08/25/22 TIME: 1837 PATIENT: KARMA ROWLAND UNIT #: [id number] ROOM/BED: [place] [id number] : 61 AGE: 56 SEX: M ATTEND: David Ramires MD ADM AUTHOR: Braxton Chapin MD * ALL edits or amendments must be made on the [employer]/computer document * Subjective Patient reports: no complaints Objective General VS: Last Documented: Result Date Time Pulse Ox 100 08/25 1800 B/P 153/70 08/25 1800 B/P Mean 101 08/25 1800 Pulse 98 08/25 1800 Resp 17 08/25 1800 Temp 37.1 08/25 1600 O2 Delivery Room air 08/24 1900 O2 Flow Rate 2 08/21 0800 PATIENT WEIGHT: Weight (lb): 160 Weight (oz): 15 Weight (kg): 72.575 Medications: Active Meds + DC'd Last 24 Hrs Bupivacaine HCl (MARCAINE 0.5% VIAL) 0 .STK-MED ONE .ROUTE (DC) Gentamicin Sulfate (GARAMYCIN) 0 .STK-MED ONE .R OUTE (DC) Lidocaine HCl (LIDOCAINE HCL/PF) 0 .STK-MED ONE .ROUTE (DC) Fentanyl Citrate (SUBLIMAZE) 0 .STK-MED ONE .ROU TE (DC) Midazolam HCl (VERSED) 0 .STK-MED ONE .ROUTE (D C) Propofol (DIPRIVAN 200MG/20ML INJECTION) 20 ML . STK-MED ONE IV (DC) Heparin Sodium (HEPARIN SODIUM) 0 .STK-MED ONE I V (DC) Ceftaroline Fosamil (TEFLARO) 600 MG Q8H IV (CKD ) Sodium Chloride (SODIUM CHLORIDE 0.9%) 100 ML Daptomycin (CUBICIN 500MG) 700 MG Q24H IV (CKD) Sodium Chloride (SODIUM CHLORIDE 0.9%) 50 ML Vancomycin HCl (VANCOMYCIN HCL) 1,000 MG ONCE ON E IV (DC) Sodium Chloride (SODIUM CHLORIDE 0.9%) 250 ML Famotidine (PEPCID) 20 MG BID PO Lorazepam (ATIVAN) 1 MG ONCE PRN IV Sodium Chloride (SODIUM CHLORIDE) 0 ASDIR PRN IV Insulin Glargine (Lantus/Semglee) 25 UNIT BEDTIM E SUBQ Insulin Human Lispro (HUMALOG) 7 UNIT AC SUBQ Insulin Human Lispro (HUMALOG) 0 AC HS SUBQ Dextrose/Water (DEXTROSE 10% IN WATER) 125 ML DIR PRN IV (CKD) Dextrose/Water (DEXTROSE 10% IN WATER) 250 ML DIR PRN IV (CKD) Glucagon (GLUCAGON) 1 MG ASDIR PRN IM Dextrose/Water (Dextrose 10% 1,000 mL) 1,000 ML ASDIR IV Acetaminophen (TYLENOL) 650 MG Q6H PRN PRN PO Bisacodyl (DULCOLAX) 10 MG DAILY PRN PRN RECTAL Docusate Sodium (COLACE) 100 MG Q12H PRN PRN PO Ondansetron HCl (ZOFRAN) 4 MG Q6H PRN PRN IV Heparin Sodium (HEPARIN 5000 UNITS/ML) 5,000 UNI T Q8HR SUBQ Miscellaneous Information (VANCOMYCIN PHARMACY T O DOSE) 1 EACH ASDIR IV (DC) Physical Exam General appearance: alert, awake Diagnosis, Assessment Plan Hospital course to date: Laboratory Tests: 08/25 08/25 08/25 08/25 1723 1111 1044 1044 Chemistry Potassium (3.4 - 5.0 mEq/L) 4.5 POC Glucose (70 - 110 MG/DL) 132 H 143 H Total Creatine Kinase (46 - 171 Units/L) 17 L Urines Urine Color (YEL/STRAW) YELLOW Urine Appearance (CLEAR) TURBID H Urine pH (5.0 - 7.0) 5.0 Ur Specific [place] (1.005 - 1.030) 1.012 Urine Protein (NEGATIVE) 2+ H Urine Glucose (UA) (NEGATIVE) NEGATIVE Urine Ketones (NEGATIVE) NEGATIVE Urine Blood (NEGATIVE) 2+ H Urine Nitrite (NEGATIVE) NEGATIVE Urine Bilirubin (NEGATIVE) NEGATIVE Urine Urobilinogen (0.2 - 1.0 mg/dL) 0.2 Ur Leukocyte Esterase (NEGATIVE) 3+ H Urine RBC (0 - 3 RBC/HPF) 21-50 Urine WBC (0 - 3 WBC/HPF) >50 H Ur Squamous Epith Cells (NONE SEEN /HPF) NONE S EEN Ur Transition Epith Cell (NONE SEEN /HPF) 3+ H Urine Bacteria (NONE SEEN /HPF) TRACE Urine Mucus (NONE SEEN /LPF) TRACE 08/25 08/25 08/24 0750 0744 2130 Chemistry Sodium (134 - 147 mEq/L) 135 Potassium (3.4 - 5.0 mEq/L) 5.4 H Chloride (100 - 108 mEq/L) 110 H Carbon Dioxide (21 - 33 mEq/l) 19 L Anion Gap (0 - 20) 11 BUN (7 - 18 mg/dL) 25 H Creatinine (0.6 - 1.3 mg/dL) 1.1 Glomerular Filtr Rate (90 - 95) 77.8 L Glucose (70 - 110 mg/dL) 162 H POC Glucose (70 - 110 MG/DL) 166 H 140 H Calcium (8.0 - 10.5 mg/dL) 7.3 L Ionized Calcium Mitzi (1.09 - 1.30 MMOL/L) 0.96 L Phosphorus (2.5 - 4.9 MG/DL) 4.5 Magnesium (1.80 - 2.40 mg/dL) 1.88 Total Bilirubin (0.0 - 1.0 mg/dL) 0.50 AST (15 - 37 IUnit/L) 40 H ALT (30 - 65 IUnit/L) 21 L Total Alk Phosphatase (20 - 125 IUnit/L) 159 H Total Protein (6.4 - 8.2 g/dL) 5.6 L Albumin (3.4 - 5.0 g/dL) 1.30 L Hematology WBC (4.5 - 11.0 x10 3/uL) 17.9 H RBC (4.00 - 5.60 x10 6/uL) 2.64 L Hgb (12.5 - 16.9 g/dL) 7.3 L Hct (37.5 - 50.7 %) 22.6 L MCV (81.0 - 99.0 fL) 85.6 MCH (27.0 - 33.0 pg) 27.7 MCHC (33.0 - 37.0 g/dL) 32.3 L RDW (11.5 - 14.5 %) 15.1 H Plt Count (150 - 400 x10 3/uL) 226 MPV (7.0 - 9.0 fL) 10.7 H Neut % (Auto) (56.0 - 77.0 %) 86.3 H Lymph % (Auto) (14.0 - 32.0 %) 8.1 L Boundary % (Auto) (4.8 - 9.0 %) 4.3 L Eos % (Auto) (0.3 - 3.7 %) 0.5 Baso % (Auto) (0.0 - 2.0 %) 0.1 Neut # (Auto) (2.0 - 7.6 x10 3/uL) 15.44 H Lymph # (Auto) (1.0 - 3.8 x10 3/uL) 1.45 Boundary # (Auto) (0.1 - 0.8 x10 3/uL) 0.77 Eos # (Auto) (0.0 - 0.2 x10 3/uL) 0.09 Baso # (Auto) (0.0 - 0.2 x10 3/uL) 0.02 Abs Immat Gran (auto) (0.00 - 0.03 x10 3/uL) 0. 13 H Add Manual Diff NO Immature Gran % (0.0 - 2.0 %) 0.7 Nucleated RBC % (0 - 0 %) 0.0 Nucleated RBCs # (Man) (0.0 - 0.1 x10 3/uL) 0.0 0 Microbiology: Date/Time Procedure - Status Source Growth 08/25 104 Urine Culture - WKST URINE 08/25 1044 Blood Culture - RECD BLOOD 08/25 1044 Blood Culture - RECD BLOOD Laboratory Tests: 08/20 08/20 08/20 08/20 08/20 1107 0756 0647 0554 0454 Chemistry Sodium (134 - 147 mEq/L) 137 Potassium (3.4 - 5.0 mEq/L) 3.7 Chloride (100 - 108 mEq/L) 107 Carbon Dioxide (21 - 33 mEq/l) 20 L Anion Gap (0 - 20) 14 BUN (7 - 18 mg/dL) 44 H Creatinine (0.6 - 1.3 mg/dL) 1.2 Glomerular Filtr Rate (90 - 95) 70.1 L Glucose (70 - 110 mg/dL) 212 H POC Glucose (70 - 110 MG/DL) 173 H 192 H 206 H 198 H Calcium (8.0 - 10.5 mg/dL) 7.3 L Ionized Calcium Mitzi (1.09 - 1.30 MMOL/L) 1.04 L Phosphorus (2.5 - 4.9 MG/DL) 3.4 Magnesium (1.80 - 2.40 mg/dL) 2.05 Total Bilirubin (0.0 - 1.0 mg/dL) 0.60 AST (15 - 37 IUnit/L) 51 H ALT (30 - 65 IUnit/L) 22 L Total Alk Phosphatase (20 - 125 IUnit/L) 178 H Total Protein (6.4 - 8.2 g/dL) 5.7 L Albumin (3.4 - 5.0 g/dL) 2.00 L Hematology WBC (4.5 - 11.0 x10 3/uL) 22.8 H RBC (4.00 - 5.60 x10 6/uL) 2.63 L Hgb (12.5 - 16.9 g/dL) 7.1 L Hct (37.5 - 50.7 %) 21.3 L MCV (81.0 - 99.0 fL) 81.0 MCH (27.0 - 33.0 pg) 27.0 MCHC (33.0 - 37.0 g/dL) 33.3 RDW (11.5 - 14.5 %) 14.7 H Plt Count (150 - 400 x10 3/uL) 190 MPV (7.0 - 9.0 fL) 10.0 H Neut % (Auto) (56.0 - 77.0 %) 87.2 H Lymph % (Auto) (14.0 - 32.0 %) 4.8 L Boundary % (Auto) (4.8 - 9.0 %) 2.9 L Eos % (Auto) (0.3 - 3.7 %) 0.0 L Baso % (Auto) (0.0 - 2.0 %) 0.2 Neut # (Auto) (2.0 - 7.6 x10 3/uL) 19.90 H Lymph # (Auto) (1.0 - 3.8 x10 3/uL) 1.10 Boundary # (Auto) (0.1 - 0.8 x10 3/uL) 0.66 Eos # (Auto) (0.0 - 0.2 x10 3/uL) 0.00 Baso # (Auto) (0.0 - 0.2 x10 3/uL) 0.04 Abs Immat Gran (auto) (0.00 - 0.03 1.12 H x10 3/uL) Add Manual Diff NO Immature Gran % (0.0 - 2.0 %) 4.9 H Nucleated RBC % (0 - 0 %) 0.0 Nucleated RBCs # (Man) (0.0 - 0.1 0.00 x10 3/uL) 08/20 08/20 08/19 08/19 08/19 0259 0101 2352 2322 2310 Chemistry Sodium (134 - 147 mEq/L) 132 L Potassium (3.4 - 5.0 mEq/L) 3.7 Chloride (100 - 108 mEq/L) 107 Carbon Dioxide (21 - 33 mEq/l) 21 Anion Gap (0 - 20) 8 BUN (7 - 18 mg/dL) 41 H Creatinine (0.6 - 1.3 mg/dL) 1.2 Glomerular Filtr Rate (90 - 95) 70.1 L Glucose (70 - 110 mg/dL) 184 H POC Glucose (70 - 110 MG/DL) 195 H 181 H 182 H 191 H Calcium (8.0 - 10.5 mg/dL) 7.1 L Phosphorus (2.5 - 4.9 MG/DL) 3.3 Magnesium (1.80 - 2.40 mg/dL) 2.09 Albumin (3.4 - 5.0 g/dL) 1.70 L Hematology Hgb (12.5 - 16.9 g/dL) 7.0 L Hct (37.5 - 50.7 %) 21.8 L 08/193 1 2014 1727 1652 Chemistry Sodium (134 - 147 mEq/L) 133 L Potassium (3.4 - 5.0 mEq/L) 3.6 Chloride (100 - 108 mEq/L) 105 Carbon Dioxide (21 - 33 mEq/l) 21 Anion Gap (0 - 20) 10 BUN (7 - 18 mg/dL) 45 H Creatinine (0.6 - 1.3 mg/dL) 1.2 Glomerular Filtr Rate (90 - 95) 70.1 L Glucose (70 - 110 mg/dL) 247 H POC Glucose (70 - 110 MG/DL) 165 H 209 H 218 H 219 H Calcium (8.0 - 10.5 mg/dL) 7.6 L Phosphorus (2.5 - 4.9 MG/DL) 3.0 Magnesium (1.80 - 2.40 mg/dL) 2.03 Albumin (3.4 - 5.0 g/dL) 1.40 L Hematology WBC (4.5 - 11.0 x10 3/uL) 20.3 H RBC (4.00 - 5.60 x10 6/uL) 2.57 L Hgb (12.5 - 16.9 g/dL) 7.1 L Hct (37.5 - 50.7 %) 20.9 L MCV (81.0 - 99.0 fL) 81.3 MCH (27.0 - 33.0 pg) 27.6 MCHC (33.0 - 37.0 g/dL) 34.0 RDW (11.5 - 14.5 %) 14.3 Plt Count (150 - 400 x10 3/uL) 197 MPV (7.0 - 9.0 fL) 10.2 H Neut % (Auto) (56.0 - 77.0 %) 88.7 H Lymph % (Auto) (14.0 - 32.0 %) 3.8 L Boundary % (Auto) (4.8 - 9.0 %) 3.7 L Eos % (Auto) (0.3 - 3.7 %) 0.0 L Baso % (Auto) (0.0 - 2.0 %) 0.3 Neut # (Auto) (2.0 - 7.6 x10 3/uL) 17.97 H Lymph # (Auto) (1.0 - 3.8 x10 3/uL) 0.76 L Boundary # (Auto) (0.1 - 0.8 x10 3/uL) 0.74 Eos # (Auto) (0.0 - 0.2 x10 3/uL) 0.00 Baso # (Auto) (0.0 - 0.2 x10 3/uL) 0.07 Abs Immat Gran (auto) (0.00 - 0.03 0.71 H x10 3/uL) Add Manual Diff NO Immature Gran % (0.0 - 2.0 %) 3.5 H Nucleated RBC % (0 - 0 %) 0.0 Nucleated RBCs # (Man) (0.0 - 0.1 0.00 x10 3/uL) 08/19 08/19 1622 1601 Chemistry POC Glucose (70 - 110 MG/DL) 232 H Urines Urine Color (YEL/STRAW) YELLOW Urine Appearance (CLEAR) SL CLOUDY Urine pH (5.0 - 7.0) 5.0 Ur Specific [place] (1.005 - 1.030) 1.013 Urine Protein (NEGATIVE) 1+ H Urine Glucose (UA) (NEGATIVE) 3+ H Urine Ketones (NEGATIVE) NEGATIVE Urine Blood (NEGATIVE) 2+ H Urine Nitrite (NEGATIVE) NEGATIVE Urine Bilirubin (NEGATIVE) NEGATIVE Urine Urobilinogen (0.2 - 1.0 mg/dL) 0.2 Ur Leukocyte Esterase (NEGATIVE) 3+ H Urine RBC (0 - 3 RBC/HPF) 4-10 Urine WBC (0 - 3 WBC/HPF) 21-50 H Ur Squamous Epith Cells (NONE SEEN /HPF) 0-5 Urine Bacteria (NONE SEEN /HPF) TRACE Urine Mucus (NONE SEEN /LPF) TRACE Microbiology: Date/Time Procedure - Status Source Growth 08/20 145 Blood Culture - ORD BLOOD 08/20 145 Blood Culture - ORD BLOOD 08/19 1709 Blood Culture - ORD BLOOD 08/19 1709 Blood Culture - ORD BLOOD 08/19 1622 Urine Culture - RES URINE Laboratory Tests: 08/19 08/19 08/19 08/19 08/19 1338 1335 1233 1115 1115 Chemistry Sodium (134 - 147 mEq/L) 130 L Potassium (3.4 - 5.0 mEq/L) 3.6 Chloride (100 - 108 mEq/L) 107 Carbon Dioxide (21 - 33 mEq/l) 22 Anion Gap (0 - 20) 5 BUN (7 - 18 mg/dL) 39 H Creatinine (0.6 - 1.3 mg/dL) 1.1 Glomerular Filtr Rate (90 - 95) 77.8 L Glucose (70 - 110 mg/dL) 315 H POC Glucose (70 - 110 MG/DL) 340 H 363 H 326 H Calcium (8.0 - 10.5 mg/dL) 7.6 L Phosphorus (2.5 - 4.9 MG/DL) 2.2 L Magnesium (1.80 - 2.40 mg/dL) 2.06 B-Natriuretic Peptide (0 - 100 PG/ML) 96.0 Albumin (3.4 - 5.0 g/dL) 1.50 L 08/19 08/19 08/19 08/19 0805 0709 0733 5218 Chemistry Sodium (134 - 147 mEq/L) 130 L 130 L Potassium (3.4 - 5.0 mEq/L) 3.3 L 3.0 L Chloride (100 - 108 mEq/L) 103 102 Carbon Dioxide (21 - 33 mEq/l) 20 L 22 Anion Gap (0 - 20) 10 10 BUN (7 - 18 mg/dL) 42 H 43 H Creatinine (0.6 - 1.3 mg/dL) 1.2 1.3 Glomerular Filtr Rate (90 - 95) 70.1 L 63.7 L Glucose (70 - 110 mg/dL) 322 H 359 H POC Glucose (70 - 110 MG/DL) 292 H Calcium (8.0 - 10.5 mg/dL) 8.2 7.7 L Phosphorus (2.5 - 4.9 MG/DL) 2.6 2.9 Magnesium (1.80 - 2.40 mg/dL) 2.13 2.13 Iron (35 - 150 mcg/dL) 8 L TIBC (260 - 445 mcg/dL) 148 L % Saturation (14 - 34 %) 5.4 L Unsat Iron Binding (mcg/dL) 140 Ferritin (23.9 - 336.2 ng/mL) 2429.2 H Total Bilirubin (0.0 - 1.0 mg/dL) 0.60 AST (15 - 37 IUnit/L) 27 ALT (30 - 65 IUnit/L) 13 L Total Alk Phosphatase (20 - 125 IUnit/L) 150 H Total Protein (6.4 - 8.2 g/dL) 5.6 L Albumin (3.4 - 5.0 g/dL) 1.60 L 1.50 L Vitamin B12 (193 - 986 pg/mL) 5883 H Folate (3.1 - 17.5 ng/mL) 9.5 08/19 08/19 08/19 08/19 0340 0332 0330 0101 Chemistry POC Glucose (70 - 110 MG/DL) 332 H 296 H Hemoglobin A1c (4.8 - 6.0 %A1C) > 14.0 H Ionized Calcium Mitzi (1.09 - 1.30 MMOL/L) 1.07 L Hematology WBC (4.5 - 11.0 x10 3/uL) 21.3 H RBC (4.00 - 5.60 x10 6/uL) 2.80 L Hgb (12.5 - 16.9 g/dL) 7.6 L Hct (37.5 - 50.7 %) 22.3 L MCV (81.0 - 99.0 fL) 79.6 L MCH (27.0 - 33.0 pg) 27.1 MCHC (33.0 - 37.0 g/dL) 34.1 RDW (11.5 - 14.5 %) 14.0 Plt Count (150 - 400 x10 3/uL) 227 MPV (7.0 - 9.0 fL) 9.9 H Neut % (Auto) (56.0 - 77.0 %) 89.9 H Lymph % (Auto) (14.0 - 32.0 %) 4.3 L Boundary % (Auto) (4.8 - 9.0 %) 3.1 L Eos % (Auto) (0.3 - 3.7 %) 0.0 L Baso % (Auto) (0.0 - 2.0 %) 0.3 Neut # (Auto) (2.0 - 7.6 x10 3/uL) 19.17 H Lymph # (Auto) (1.0 - 3.8 x10 3/uL) 0.91 L Boundary # (Auto) (0.1 - 0.8 x10 3/uL) 0.67 Eos # (Auto) (0.0 - 0.2 x10 3/uL) 0.01 Baso # (Auto) (0.0 - 0.2 x10 3/uL) 0.07 Abs Immat Gran (auto) (0.00 - 0.03 x10 3/uL) 0. 51 H Add Manual Diff NO Immature Gran % (0.0 - 2.0 %) 2.4 H Nucleated RBC % (0 - 0 %) 0.0 Nucleated RBCs # (Man) (0.0 - 0.1 x10 3/uL) 0.0 0 08/18 08/18 08/18 08/18 2246 2157 1854 1653 Chemistry Sodium (134 - 147 mEq/L) 129 L Potassium (3.4 - 5.0 mEq/L) 3.3 L Chloride (100 - 108 mEq/L) 102 Carbon Dioxide (21 - 33 mEq/l) 20 L Anion Gap (0 - 20) 10 BUN (7 - 18 mg/dL) 44 H Creatinine (0.6 - 1.3 mg/dL) 1.3 Glomerular Filtr Rate (90 - 95) 63.7 L Glucose (70 - 110 mg/dL) 296 H POC Glucose (70 - 110 MG/DL) 265 H 226 H 223 H Calcium (8.0 - 10.5 mg/dL) 7.7 L Phosphorus (2.5 - 4.9 MG/DL) 2.8 Magnesium (1.80 - 2.40 mg/dL) 2.13 Albumin (3.4 - 5.0 g/dL) 1.70 L Microbiology: Date/Time Procedure - Status Source Growth 08/19 121 Wound Culture - RES ABSCESS 08/19 1210 Anaerobic Culture - RES ABSCESS 08/19 1210 Gram Stain - RES ABSCESS Recent Impressions: ULTRASOUND - DUP LE [employer] UNI/LTD 08/19 0950 Report Impression - Status: SIGNED Entered: 08/19/2022 1056 IMPRESSION: No sonographic evidence for flow-limiting stenos is in the right lower extremity arterial system. Impression By: [email or web address] - Abraham Ross M.D. Laboratory Tests: 08/18 08/18 08/18 08/18 08/18 1430 1430 1404 1309 1203 Chemistry Sodium (134 - 147 mEq/L) 131 L Potassium (3.4 - 5.0 mEq/L) 3.4 Chloride (100 - 108 mEq/L) 101 Carbon Dioxide (21 - 33 mEq/l) 24 Anion Gap (0 - 20) 9 BUN (7 - 18 mg/dL) 58 H Creatinine (0.6 - 1.3 mg/dL) 1.4 H Glomerular Filtr Rate (90 - 95) 58.3 L Glucose (70 - 110 mg/dL) 207 H POC Glucose (70 - 110 MG/DL) 195 H 213 H 201 H Calcium (8.0 - 10.5 mg/dL) 7.8 L Phosphorus (2.5 - 4.9 MG/DL) 2.2 L Magnesium (1.80 - 2.40 mg/dL) 2.09 Albumin (3.4 - 5.0 g/dL) 1.60 L Triglycerides (40 - 150 mg/dL) 161 H Cholesterol (<200 mg/dL) 90 LDL Cholesterol Meas[place] (0 - 100 mg/dL) 33.0 HDL Cholesterol (32 - 72 mg/dL) < 20.0 L Cholesterol/HDL Ratio (3.43 - 4.97 4.00 RATIO) TSH (0.42 - 5.47) 0.96 Free T4 (0.77 - 1.61 ng/dL) 0.7 L 08/18 08/18 08/18 08/18 08/18 1107 1004 0900 0823 0549 Chemistry POC Glucose (70 - 110 MG/DL) 223 H 304 H 405 H 449 H Hemoglobin A1c (4.8 - 6.0 %A1C) 13.4 H 08/18 08/18 08/18 0549 0305 0207 Blood Gas Puncture Site R Radial O2 Saturation (90 - 100 %) 97.9 ABG pH (7.35 - 7.45) 7.309 L ABG pCO2 (35.0 - 45 mmHg) 22.3 *L ABG pO2 (80 - 100.0 mmHg) 108.0 H ABG PO2/FiO2 Ratio (mm/Hg) 514.28 ABG HCO3 (22.0 - 26.0 MMOL/L) 11.2 *L ABG Total CO2 11.9 ABG Base Excess (-4.0 - 4.0 MMOL/L) -15.1 L Neto Test Positive O2 Delivery Device Room Air FiO2 (%) 21 Chemistry Sodium (134 - 147 mEq/L) 121 *L Potassium (3.4 - 5.0 mEq/L) 4.1 Chloride (100 - 108 mEq/L) 90 L Carbon Dioxide (21 - 33 mEq/l) 15 L Anion Gap (0 - 20) 20 BUN (7 - 18 mg/dL) 62 H Creatinine (0.6 - 1.3 mg/dL) 1.7 H Glomerular Filtr Rate (90 - 95) 46.2 L Glucose (70 - 110 mg/dL) 692 *H Calcium (8.0 - 10.5 mg/dL) 7.5 L Phosphorus (2.5 - 4.9 MG/DL) 4.8 Magnesium (1.80 - 2.40 mg/dL) 2.34 Albumin (3.4 - 5.0 g/dL) 1.60 L Serology Influenza Type A (PCR) (Negative) Negative Influenza Type B (PCR) (Negative) Negative Toxicology Acetone, Quant (Neg - <20 mg/dL) Large - 80-100 mg/dL 08/18 08/18 08/18 0205 0203 0203 Chemistry Sodium (134 - 147 mEq/L) 115 *L Potassium (3.4 - 5.0 mEq/L) 4.4 Chloride (100 - 108 mEq/L) 84 L Carbon Dioxide (21 - 33 mEq/l) 14 L Anion Gap (0 - 20) 21 H BUN (7 - 18 mg/dL) 60 H Creatinine (0.6 - 1.3 mg/dL) 1.9 H Glomerular Filtr Rate (90 - 95) 40.4 L Glucose (70 - 110 mg/dL) 709 *H Lactic Acid (0.4 - 1.9 mmol/L) 1.2 Calcium (8.0 - 10.5 mg/dL) 8.5 Total Bilirubin (0.0 - 1.0 mg/dL) 0.40 Direct Bilirubin (0.0 - 0.30 MG/DL) 0.20 Indirect Bilirubin (MG/DL) 0.20 AST (15 - 37 IUnit/L) 14 L ALT (30 - 65 IUnit/L) 10 L Total Alk Phosphatase (20 - 125 IUnit/L) 157 H Troponin I High Sens (0 - 54 ng/L) 4 Total Protein (6.4 - 8.2 g/dL) 6.4 Albumin (3.4 - 5.0 g/dL) 1.80 L Lipase (13 - 57 U/L) 24 Hematology WBC (4.5 - 11.0 x10 3/uL) 26.5 H RBC (4.00 - 5.60 x10 6/uL) 3.36 L Hgb (12.5 - 16.9 g/dL) 9.0 L Hct (37.5 - 50.7 %) 28.3 L MCV (81.0 - 99.0 fL) 84.2 MCH (27.0 - 33.0 pg) 26.8 L MCHC (33.0 - 37.0 g/dL) 31.8 L RDW (11.5 - 14.5 %) 14.5 Plt Count (150 - 400 x10 3/uL) 355 MPV (7.0 - 9.0 fL) 9.9 H Add Manual Diff YES Seg Neutrophils % (37 - 69 %) 70.0 H Band Neutrophils % (0.0 - 10.0 %) 12.7 H Lymphocytes % (Manual) (23 - 55 %) 3.7 L Monocytes % (Manual) (0 - 10 %) 9.1 Metamyelocytes (0.0 - 0.0 %) 2.7 H Myelocytes (0.0 - 0.0 %) 0.9 H Promyelocytes (0 - 0 %) 0.9 H Platelet Estimate (ADEQUATE THOUSAND) Adequate Plt Morphology Comment NORMAL Polychromasia 3+ Poikilocytosis 3+ Anisocytosis 1+ Macrocytosis 1+ Serology SARS-CoV-2 Ag (Rapid) (Negative) Negative Toxicology Salicylates (0.0 - 20.0 mg/dL) 5.6 Microbiology: Date/Time Procedure - Status Source Growth 08/18 0915 Wound Culture - ORD FOOT 08/18 0207 Wound Culture - RECD FOOT 08/18 0207 Group A Streptococcus Screen (VERONICA) - COMP THROAT 08/18 0207 Streptococcus Culture - COMP THROAT 08/18 0203 Blood Culture - RES BLOOD 08/18 0203 Blood Culture Gram Stain - RES BLOOD 08/18 0203 Blood Culture - RES BLOOD 08/18 0203 Blood Culture Gram Stain - RES BLOOD Recent Impressions: RADIOLOGY - XR CHEST 2 V 08/18 0201 Report Impression - Status: SIGNED Entered: 08/18/2022 0317 IMPRESSION: Ill-defined somewhat nodular opacity measuring 3 .2 cm laterally in the right mid lung suspicious for rounded pneumo ro given provided history, but underlying neoplasm can not be excl uded. Followup radiographs are recommended after appropriate tr eatment in order to document complete resolution and exclude an unde rlying process or neoplasm. Impression By: [email or web address] - Dom Adams M.D. RADIOLOGY - XR FOOT 3 + V RT 08/18 0238 Report Impression - Status: SIGNED Entered: 08/18/2022 0358 IMPRESSION: No acute osseous findings. No convincing evidenc e for osteomyelitis. MRI is more sensitive for detecti ng osteomyelitis. Impression By: t.[email or web address] Ladd M.D. CAT SCAN - CT ABD PELVIS W/CONT 08/18 0339 Report Impression - Status: SIGNED Entered: 08/18/2022 0546 IMPRESSION: 3.3 cm hypodensity in the left posterior prostat e or seminal vesicle. This could represent an abscess. Contra st-enhanced MRI of the pelvis would be helpful for further evaluati on. No acute intra-abdominal findings otherwise. Impression By: Ankur Ladd M.D. CAT SCAN - CT LOWER EXTRM W/O C RT 08/18 0645 Report Impression - Status: SIGNED Entered: 08/18/2022 0827 IMPRESSION: Extensive soft tissue edema with mottled gas in the subcutaneous and intramuscular compartments of the foot abhishek tible with gas-forming infection. Disease extends into the visualized distal leg. Impression By: Jamel Dorantes M.D. 1. Diabetes mellitus type 2 uncontrolled with co mplications. 2. DKA 3. Cellulitis and gangrene of the right foot. 4. Sepsis 5. Altered mental status 6. High LFTs Blood sugar 162-143 mg/dL.A gap 5 HbA1c 13.4% White count 17.9 Sodium 121. Adjust insulin dose. Wound care and IV antibiotics. Electronically Signed by Braxton Chapin MD on 08/14 at 1840 RPT #:[id number] END OF REPORT 2022-08-25 16:09:00-00:00 [facility] ([facility]) Infectious Dis. Progress Note REPORT#:[id number] REPORT STATUS: Signed DATE:08/25/22 TIME: 160 PATIENT: KARMA ROWLAND UNIT #: [id number] ROOM/BED: [place] [id number] : 63 AGE: 56 SEX: M ATTEND: Mikayla Ramires MD ADM AUTHOR: Merry Wolff MD * ALL edits or amendments must be made on the el [employer]/computer document * Subjective Chief complaint: Follow-up on MRSA bacteremia, right lower extrem ity necrotizing soft tissue infection. HPI: PT is a 56yr old male with h istory of diabetes mellitus type 2, hypertension who was admitted with altered mental status and righ t-sided foot infection. According to him, he noticed a blister on his right foot around 3 days prior to presentation. His foot got progressively more sw ollen and erythema extended proximally to his lateral foot and ankle. CT abd omen and pelvis with contrast is concerning for possible prostate abscess. CT of lower extremity without contrast shows extensive sof t tissue edema with mottled gas in the subcutaneous and intramuscular compartments of the foot, comp atible with gas-forming infection. Patient's blood cultures have come ba ck positive for MRSA in 2 out of 2 sets. PT has had persistent (+)Ve cx for MR SA 08/18- 08/22. He underwent a debridement of his foot on 08/19 and cx g rew MRSA. PT was started on Vancomycin and clindamycin on 08/18. His MRI showed a prosta te abscess. 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 PT is afebrile, his WBX is 17.9, he is awake and alert. at the bedside Portions of this section wer e scribed by Jill Quintero on 08/25/22 at 2004 Objective General VS/I O: Vital Signs Date Temp Pulse Resp B/P B/P Mean Pulse Ox FiO2 04/-08/25 97.9-98.6 91-107 14-23 117-162/56-7 4 80-106 98-100 Last Documented: Result Date Time Temp 98.6 04/03 0800 Pulse Ox 98 04/03 0400 B/P 138/64 04/03 0400 B/P Mean 88 04/03 0400 Pulse 91 04/03 0400 Resp 15 04/03 0400 O2 Delivery Room air 04/ 1900 O2 Flow Rate 2 08/21 0800 Vital Signs: Date Time Temp Pulse Resp B/P B/P Pulse O2 O2 F low FiO2 Mean Ox Delivery Rate 04/03 0800 98.6 04/03 0400 97.9 91 15 138/64 88 98 04/03 0200 91 14 117/57 81 99 04/03 0100 93 16 120/56 81 98 04/03 0000 97 16 125/58 84 98 04/02 2300 100 15 120/58 81 98 04/02 2300 98.5 94 15 125/58 80 99 08/24 2200 107 21 162/74 106 100 08/24 2100 101 17 148/70 101 99 08/25 1999 99 23 130/60 86 98 08/24 1900 98.4 102 15 162/74 103 98 Room air 08/24 1900 97 18 117/58 83 100 08/24 1800 98 18 134/56 85 100 08/24 1700 96 15 132/64 91 99 24 hour I O ending at 0700: 08/25 0700 08/24 1900 Intake Total 1280 Output Total 700 850 Balance -700 430 Intake, Oral 1280 Number 3 Bowel Movements Output, Urine 700 850 PATIENT WEIGHT: Weight (lb): 160 Weight (oz): 15 Weight (kg): 72.575 Antibiotic start date: Antibiotic: clindamycin Start Date:08/18-08/25 Antibiotic: vancomycin 08/18-08/25 Start Date: Antibiotic: Daptomycin Start Date:08/25 Antibiotic: Teflaro Start Date:08/25 Physical Exam General appearance: alert, awake, oriented Wound/incision: Location: right foot currently dressed Head/Eyes: atraumatic, normocephalic Neck: supple/no meningismus, no JVD Cardiovascular: normal heart sounds, regular rat e rhythm, no murmur Respiratory: clear to auscultation, aerating wel l, symmetric expansion Abdomen: non-tender, soft, no distention Extremities: edema, RLE pitting edema noted 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, 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 Considered stroke alert: no Skin: lesions, no rash Psychiatry: normal affect, normal mood Results Findings/Data: Laboratory Tests 08/25 08/25 08/25 08/25 08/25 1111 1044 1044 0750 0744 Chemistry Sodium (134 - 147 mEq/L) 135 Potassium (3.4 - 5.0 mEq/L) 4.5 5.4 H Chloride (100 - 108 mEq/L) 110 H Carbon Dioxide (21 - 33 mEq/l) 19 L Anion Gap (0 - 20) 11 BUN (7 - 18 mg/dL) 25 H Creatinine (0.6 - 1.3 mg/dL) 1.1 Glomerular Filtr Rate (90 - 95) 77.8 L Glucose (70 - 110 mg/dL) 162 H POC Glucose (70 - 110 MG/DL) 143 H 166 H Calcium (8.0 - 10.5 mg/dL) 7.3 L Ionized Calcium Mitzi (1.09 - 1.30 MMOL/L) 0.96 L Phosphorus (2.5 - 4.9 MG/DL) 4.5 Magnesium (1.80 - 2.40 mg/dL) 1.88 Total Bilirubin (0.0 - 1.0 mg/dL) 0.50 AST (15 - 37 IUnit/L) 40 H ALT (30 - 65 IUnit/L) 21 L Total Alk Phosphatase (20 - 125 IUnit/L) 159 H Total Creatine Kinase (46 - 171 Units/L) 17 L Total Protein (6.4 - 8.2 g/dL) 5.6 L Albumin (3.4 - 5.0 g/dL) 1.30 L 08/24 08/24 2130 1748 Chemistry POC Glucose (70 - 110 MG/DL) 140 H 136 H Laboratory Tests 08/25 0750 Hematology WBC (4.5 - 11.0 x10 3/uL) 17.9 H RBC (4.00 - 5.60 x10 6/uL) 2.64 L Hgb (12.5 - 16.9 g/dL) 7.3 L Hct (37.5 - 50.7 %) 22.6 L MCV (81.0 - 99.0 fL) 85.6 MCH (27.0 - 33.0 pg) 27.7 MCHC (33.0 - 37.0 g/dL) 32.3 L RDW (11.5 - 14.5 %) 15.1 H Plt Count (150 - 400 x10 3/uL) 226 MPV (7.0 - 9.0 fL) 10.7 H Neut % (Auto) (56.0 - 77.0 %) 86.3 H Lymph % (Auto) (14.0 - 32.0 %) 8.1 L Boundary % (Auto) (4.8 - 9.0 %) 4.3 L Eos % (Auto) (0.3 - 3.7 %) 0.5 Baso % (Auto) (0.0 - 2.0 %) 0.1 Neut # (Auto) (2.0 - 7.6 x10 3/uL) 15.44 H Lymph # (Auto) (1.0 - 3.8 x10 3/uL) 1.45 Boundary # (Auto) (0.1 - 0.8 x10 3/uL) 0.77 Eos # (Auto) (0.0 - 0.2 x10 3/uL) 0.09 Baso # (Auto) (0.0 - 0.2 x10 3/uL) 0.02 Abs Immat Gran (auto) (0.00 - 0.03 x10 3/uL) 0 .13 H Add Manual Diff NO Immature Gran % (0.0 - 2.0 %) 0.7 Nucleated RBC % (0 - 0 %) 0.0 Nucleated RBCs # (Man) (0.0 - 0.1 x10 3/uL) 0.0 0 Laboratory Tests 08/24 1700 Toxicology Random Vancomycin (mcg/mL) 9.6 Laboratory Tests 08/25 1044 Urines Urine Color (YEL/STRAW) YELLOW Urine Appearance (CLEAR) TURBID H Urine pH (5.0 - 7.0) 5.0 Ur Specific [place] (1.005 - 1.030) 1.012 Urine Protein (NEGATIVE) 2+ H Urine Glucose (UA) (NEGATIVE) NEGATIVE Urine Ketones (NEGATIVE) NEGATIVE Urine Blood (NEGATIVE) 2+ H Urine Nitrite (NEGATIVE) NEGATIVE Urine Bilirubin (NEGATIVE) NEGATIVE Urine Urobilinogen (0.2 - 1.0 mg/dL) 0.2 Ur Leukocyte Esterase (NEGATIVE) 3+ H Urine RBC (0 - 3 RBC/HPF) 21-50 Urine WBC (0 - 3 WBC/HPF) >50 H Ur Squamous Epith Cells (NONE SEEN /HPF) NONE SEEN Ur Transition Epith Cell (NONE SEEN /HPF) 3+ H Urine Bacteria (NONE SEEN /HPF) TRACE Urine Mucus (NONE SEEN /LPF) TRACE Laboratory Tests: 08/25 08/25 08/25 08/25 1111 1044 1044 0750 Chemistry Sodium (134 - 147 mEq/L) 135 Potassium (3.4 - 5.0 mEq/L) 4.5 5.4 H Chloride (100 - 108 mEq/L) 110 H Carbon Dioxide (21 - 33 mEq/l) 19 L Anion Gap (0 - 20) 11 BUN (7 - 18 mg/dL) 25 H Creatinine (0.6 - 1.3 mg/dL) 1.1 Glomerular Filtr Rate (90 - 95) 77.8 L Glucose (70 - 110 mg/dL) 162 H POC Glucose (70 - 110 MG/DL) 143 H Calcium (8.0 - 10.5 mg/dL) 7.3 L Ionized Calcium Mitzi (1.09 - 1.30 MMOL/L) 0.96 L Phosphorus (2.5 - 4.9 MG/DL) 4.5 Magnesium (1.80 - 2.40 mg/dL) 1.88 Total Bilirubin (0.0 - 1.0 mg/dL) 0.50 AST (15 - 37 IUnit/L) 40 H ALT (30 - 65 IUnit/L) 21 L Total Alk Phosphatase (20 - 125 IUnit/L) 159 H Total Creatine Kinase (46 - 171 Units/L) 17 L Total Protein (6.4 - 8.2 g/dL) 5.6 L Albumin (3.4 - 5.0 g/dL) 1.30 L Hematology WBC (4.5 - 11.0 x10 3/uL) 17.9 H RBC (4.00 - 5.60 x10 6/uL) 2.64 L Hgb (12.5 - 16.9 g/dL) 7.3 L Hct (37.5 - 50.7 %) 22.6 L MCV (81.0 - 99.0 fL) 85.6 MCH (27.0 - 33.0 pg) 27.7 MCHC (33.0 - 37.0 g/dL) 32.3 L RDW (11.5 - 14.5 %) 15.1 H Plt Count (150 - 400 x10 3/uL) 226 MPV (7.0 - 9.0 fL) 10.7 H Neut % (Auto) (56.0 - 77.0 %) 86.3 H Lymph % (Auto) (14.0 - 32.0 %) 8.1 L Boundary % (Auto) (4.8 - 9.0 %) 4.3 L Eos % (Auto) (0.3 - 3.7 %) 0.5 Baso % (Auto) (0.0 - 2.0 %) 0.1 Neut # (Auto) (2.0 - 7.6 x10 3/uL) 15.44 H Lymph # (Auto) (1.0 - 3.8 x10 3/uL) 1.45 Boundary # (Auto) (0.1 - 0.8 x10 3/uL) 0.77 Eos # (Auto) (0.0 - 0.2 x10 3/uL) 0.09 Baso # (Auto) (0.0 - 0.2 x10 3/uL) 0.02 Abs Immat Gran (auto) (0.00 - 0.03 x10 3/uL) 0 .13 H Add Manual Diff NO Immature Gran % (0.0 - 2.0 %) 0.7 Nucleated RBC % (0 - 0 %) 0.0 Nucleated RBCs # (Man) (0.0 - 0.1 x10 3/uL) 0.0 0 Urines Urine Color (YEL/STRAW) YELLOW Urine Appearance (CLEAR) TURBID H Urine pH (5.0 - 7.0) 5.0 Ur Specific [place] (1.005 - 1.030) 1.012 Urine Protein (NEGATIVE) 2+ H Urine Glucose (UA) (NEGATIVE) NEGATIVE Urine Ketones (NEGATIVE) NEGATIVE Urine Blood (NEGATIVE) 2+ H Urine Nitrite (NEGATIVE) NEGATIVE Urine Bilirubin (NEGATIVE) NEGATIVE Urine Urobilinogen (0.2 - 1.0 mg/dL) 0.2 Ur Leukocyte Esterase (NEGATIVE) 3+ H Urine RBC (0 - 3 RBC/HPF) 21-50 Urine WBC (0 - 3 WBC/HPF) >50 H Ur Squamous Epith Cells (NONE SEEN /HPF) NONE S EEN Ur Transition Epith Cell (NONE SEEN /HPF) 3+ H Urine Bacteria (NONE SEEN /HPF) TRACE Urine Mucus (NONE SEEN /LPF) TRACE 08/25 08/24 08/24 08/24 08/24 0744 2130 1748 1700 1200 Chemistry POC Glucose (70 - 110 MG/DL) 166 H 140 H 136 H 129 H Toxicology Random Vancomycin (mcg/mL) 9.6 08/24 08/24 08/24 08/23 08/23 0749 0630 0307 2058 1930 Chemistry Sodium (134 - 147 mEq/L) 133 L Potassium (3.4 - 5.0 mEq/L) 4.4 Chloride (100 - 108 mEq/L) 107 Carbon Dioxide (21 - 33 mEq/l) 22 Anion Gap (0 - 20) 9 BUN (7 - 18 mg/dL) 38 H Creatinine (0.6 - 1.3 mg/dL) 1.3 Glomerular Filtr Rate (90 - 95) 63.7 L Glucose (70 - 110 mg/dL) 203 H POC Glucose (70 - 110 MG/DL) 195 H 189 H 161 H 146 H Calcium (8.0 - 10.5 mg/dL) 7.5 L Ionized Calcium Mitzi (1.09 - 1.30 MMOL/L) 1.09 Phosphorus (2.5 - 4.9 MG/DL) 4.1 Magnesium (1.80 - 2.40 mg/dL) 1.80 Total Bilirubin (0.0 - 1.0 mg/dL) 0.60 AST (15 - 37 IUnit/L) 35 ALT (30 - 65 IUnit/L) 18 L Total Alk Phosphatase (20 - 125 IUnit/L) 176 H Total Protein (6.4 - 8.2 g/dL) 5.8 L Albumin (3.4 - 5.0 g/dL) 1.50 L Hematology WBC (4.5 - 11.0 x10 3/uL) 16.3 H RBC (4.00 - 5.60 x10 6/uL) 2.71 L Hgb (12.5 - 16.9 g/dL) 7.4 L Hct (37.5 - 50.7 %) 22.7 L MCV (81.0 - 99.0 fL) 83.8 MCH (27.0 - 33.0 pg) 27.3 MCHC (33.0 - 37.0 g/dL) 32.6 L RDW (11.5 - 14.5 %) 14.9 H Plt Count (150 - 400 x10 3/uL) 212 MPV (7.0 - 9.0 fL) 10.4 H Neut % (Auto) (56.0 - 77.0 %) 85.7 H Lymph % (Auto) (14.0 - 32.0 %) 7.7 L Boundary % (Auto) (4.8 - 9.0 %) 4.7 L Eos % (Auto) (0.3 - 3.7 %) 0.6 Baso % (Auto) (0.0 - 2.0 %) 0.1 Neut # (Auto) (2.0 - 7.6 x10 3/uL) 13.99 H Lymph # (Auto) (1.0 - 3.8 x10 3/uL) 1.25 Boundary # (Auto) (0.1 - 0.8 x10 3/uL) 0.76 Eos # (Auto) (0.0 - 0.2 x10 3/uL) 0.09 Baso # (Auto) (0.0 - 0.2 x10 3/uL) 0.02 Abs Immat Gran (auto) (0.00 - 0.03 0.20 H x10 3/uL) Add Manual Diff NO Immature Gran % (0.0 - 2.0 %) 1.2 Nucleated RBC % (0 - 0 %) 0.0 Nucleated RBCs # (Man) (0.0 - 0.1 0.00 x10 3/uL) 08/23 1620 Chemistry POC Glucose (70 - 110 MG/DL) 126 H Microbiology: Date/Time Procedure - Status Source Growth 08/25 1044 Urine Culture - WKST URINE 08/25 1044 Blood Culture - RECD BLOOD 08/25 1044 Blood Culture - RECD BLOOD Medication(s) Ordered: Anti-Infective Agents Sig/Jan Start time Last Medication Dose Route Stop Time Status Admin Ceftaroline Fosamil 600 MG Q8H 08/25 1100 CKD 0 08/25 Sodium Chloride 100 ML IV 09/01 1059 1110 Daptomycin 700 MG Q24H 08/25 1100 CKD 08/25 Sodium Chloride 50 ML IV 09/08 1059 1110 Vancomycin HCl 1,000 MG ONCE ONE 08/24 1800 DC 08/24 Sodium Chloride 250 ML IV 08/24 1859 1814 Miscellaneous 1 EACH ASDIR 08/18 0545 DC Information IV 09/17 0544 Blood Formation,Coagulation Sig/Jan Start time Last Medication Dose Route Stop Time Status Admin Heparin Sodium 0 .STK-MED ONE 08/25 1103 DC IV Heparin Sodium 5,000 UNIT Q8HR 08/18 0600 AC SUBQ 09/17 0559 0550 Central Nervous System Agents Sig/Jan Start time Last Medication Dose Route Stop Time Status Admin Lorazepam 1 MG ONCE PRN 08/21 0900 AC 08/21 IV 09/20 0859 1143 Acetaminophen 650 MG Q6H PRN PRN 08/18 0945 AC 08/24 PO 09/17 0944 2139 Electrolytic, Caloric, And Daniel Sig/Jan Start time Last Medication Dose Route Stop Time Status Admin Sodium Chloride 0 ASDIR PRN 08/21 0900 AC IV 09/20 0859 Dextrose/Water 125 ML ASDIR PRN 08/20 1530 CKD IV 09/19 1529 Dextrose/Water 250 ML ASDIR PRN 08/20 1530 CKD IV 09/19 1529 Dextrose/Water 1,000 ML ASDIR 08/19 1015 AC IV 09/18 1014 Gastrointestinal Drugs Sig/Jan Start time Last Medication Dose Route Stop Time Status Admin Famotidine 20 MG BID 08/21 2100 AC 08/25 PO 09/20 2059 0809 Bisacodyl 10 MG DAILY PRN PRN 08/18 0945 AC RECTAL 09/17 0944 Docusate Sodium 100 MG Q12H PRN PRN 08/18 0945 AC 08/22 PO 09/17 0944 2109 Ondansetron HCl 4 MG Q6H PRN PRN 08/18 0945 AC IV 09/17 0944 Hormones And Synthetic Substit Sig/Jan Start time Last Medication Dose Route Stop Time Status Admin Insulin Glargine 25 UNIT BEDTIME 08/20 2100 AC 08/24 SUBQ 09/19 2059 2132 Insulin Human Lispro 7 UNIT AC 08/20 1630 AC SUBQ 09/19 1629 1755 Insulin Human Lispro 0 AC HS 08/20 1630 AC 04/0 2 SUBQ 09/19 1629 0805 Glucagon 1 MG ASDIR PRN 08/20 1530 AC IM 09/19 1529 Microbiology: 08/25 1044 URINE: Urine Culture - WKST 08/25 1044 BLOOD: Blood Culture - RECD 08/25 1044 BLOOD: Blood Culture - RECD 08/22 1730 BLOOD: Blood Culture - RES COAG POS STAPHYLOCOCCUS 08/22 1730 BLOOD: Blood Culture Gram Stain - RES 08/22 1721 BLOOD: Blood Culture - RES COAG POS STAPHYLOCOCCUS 08/22 1721 BLOOD: Blood Culture Gram Stain - RES Portions of this section wer e scribed by Jill Quintero on 08/26/22 at 1509 Treatment Prophylaxis Treatment Prophylaxis Lines: peripheral CVC/PICC documentation: The data below has been imported from nursing do cumentation. Any exceptions have been noted below under Provider comments. CVC/PICC insertion date/time: Provider comments on imported nursing data: [] Portions of this section janice kendall scribed by Jill Quintero on 08/25/22 at 2004 Diagnosis, Assessment Plan Free Text A P: Assessment: *MRSA bacteremia *Severe sepsis due to above *Right lower extremity necrotizing fasciitis -MRI of foot (+)Ve for osteomyelitis -s/p debridement on 08/19 *DKA *Prostatic abscess *ERIKA *Hyponatremia *Diabetic neuropathy *Diabetes mellitus type 2 *Hypertension -Initial blood cultures from 08/18/2022 positive for MRSA in 2 out of 2 sets. -Repeat blood cultures 08/21/2022 are already po sitive for MRSA in 2 out of 2 sets, suggesting persistent high-grade bacteremi a. -Wound culture also positive for MRSA -TTE 08/18/2022 negative for any obvious vegetat ions. -Went to the OR 08/19/2022 per podiatry for an I D. Plan: -Discussed the possibility of amputation with dvaid cavazos and family at bedside -Recommend JIMENA. -Repeat blood cultures x2 again today. -Continue to repeat serial blood cultures till b acteremia clears. -D/C clindamycin and vancomycin. -start on DAptomycin and Teflaro -check urine cx Discussed with Dr. Bass about MRI report Portions of this section janice kendall scribed by Jill Quintero on 08/26/22 at 1510 at 0816 RPT #:[id number] END OF REPORT 2022-08-25 15:40:00-00:00 [facility] Urology Progress Note REPORT#:[id number] REPORT STATUS: Signed DATE:08/25/22 TIME: 1540 PATIENT: KARMA ROWLAND UNIT #: [id number] ROOM/BED: [facility]25-1 : 61 AGE: 56 SEX: M ATTEND: Mikayla Ramires MD ADM AUTHOR: David Bass MD * ALL edits or amendments must be made on the el [employer]/computer document * Subjective Patient reports: no complaints Objective General VS/I O: Last Documented: Result Date Time Temp 37.0 08/25 08 Pulse Ox 98 08/26 399 B/P 138/64 08/250 B/P Mean 88 08/25 040 Pulse 91 08/25 0400 Resp 15 08/25 0400 O2 Delivery Room air 08/24 1900 O2 Flow Rate 2 08/21 0800 24 hour I O ending at 0700: 08/25 0708/24 1900 Intake Total 1280 Output Total 700 850 Balance -700 430 Intake, Oral 1280 Number 3 Bowel Movements Output, Urine 700 850 PATIENT WEIGHT: Weight (lb): 160 Weight (oz): 15 Weight (kg): 72.575 Physical Exam General appearance: alert, awake Abdomen: soft Results Findings/Data: Laboratory Tests: 08/25 08/25 08/25 08/25 1111 1044 1044 0750 Chemistry Sodium (134 - 147 mEq/L) 135 Potassium (3.4 - 5.0 mEq/L) 4.5 5.4 H Chloride (100 - 108 mEq/L) 110 H Carbon Dioxide (21 - 33 mEq/l) 19 L Anion Gap (0 - 20) 11 BUN (7 - 18 mg/dL) 25 H Creatinine (0.6 - 1.3 mg/dL) 1.1 Glomerular Filtr Rate (90 - 95) 77.8 L Glucose (70 - 110 mg/dL) 162 H POC Glucose (70 - 110 MG/DL) 143 H Calcium (8.0 - 10.5 mg/dL) 7.3 L Ionized Calcium Mitzi (1.09 - 1.30 MMOL/L) 0.96 L Phosphorus (2.5 - 4.9 MG/DL) 4.5 Magnesium (1.80 - 2.40 mg/dL) 1.88 Total Bilirubin (0.0 - 1.0 mg/dL) 0.50 AST (15 - 37 IUnit/L) 40 H ALT (30 - 65 IUnit/L) 21 L Total Alk Phosphatase (20 - 125 IUnit/L) 159 H Total Creatine Kinase (46 - 171 Units/L) 17 L Total Protein (6.4 - 8.2 g/dL) 5.6 L Albumin (3.4 - 5.0 g/dL) 1.30 L Hematology WBC (4.5 - 11.0 x10 3/uL) 17.9 H RBC (4.00 - 5.60 x10 6/uL) 2.64 L Hgb (12.5 - 16.9 g/dL) 7.3 L Hct (37.5 - 50.7 %) 22.6 L MCV (81.0 - 99.0 fL) 85.6 MCH (27.0 - 33.0 pg) 27.7 MCHC (33.0 - 37.0 g/dL) 32.3 L RDW (11.5 - 14.5 %) 15.1 H Plt Count (150 - 400 x10 3/uL) 226 MPV (7.0 - 9.0 fL) 10.7 H Neut % (Auto) (56.0 - 77.0 %) 86.3 H Lymph % (Auto) (14.0 - 32.0 %) 8.1 L Boundary % (Auto) (4.8 - 9.0 %) 4.3 L Eos % (Auto) (0.3 - 3.7 %) 0.5 Baso % (Auto) (0.0 - 2.0 %) 0.1 Neut # (Auto) (2.0 - 7.6 x10 3/uL) 15.44 H Lymph # (Auto) (1.0 - 3.8 x10 3/uL) 1.45 Boundary # (Auto) (0.1 - 0.8 x10 3/uL) 0.77 Eos # (Auto) (0.0 - 0.2 x10 3/uL) 0.09 Baso # (Auto) (0.0 - 0.2 x10 3/uL) 0.02 Abs Immat Gran (auto) (0.00 - 0.03 x10 3/uL) 0. 13 H Add Manual Diff NO Immature Gran % (0.0 - 2.0 %) 0.7 Nucleated RBC % (0 - 0 %) 0.0 Nucleated RBCs # (Man) (0.0 - 0.1 x10 3/uL) 0.0 0 Urines Urine Color (YEL/STRAW) YELLOW Urine Appearance (CLEAR) TURBID H Urine pH (5.0 - 7.0) 5.0 Ur Specific [place] (1.005 - 1.030) 1.012 Urine Protein (NEGATIVE) 2+ H Urine Glucose (UA) (NEGATIVE) NEGATIVE Urine Ketones (NEGATIVE) NEGATIVE Urine Blood (NEGATIVE) 2+ H Urine Nitrite (NEGATIVE) NEGATIVE Urine Bilirubin (NEGATIVE) NEGATIVE Urine Urobilinogen (0.2 - 1.0 mg/dL) 0.2 Ur Leukocyte Esterase (NEGATIVE) 3+ H Urine RBC (0 - 3 RBC/HPF) 21-50 Urine WBC (0 - 3 WBC/HPF) >50 H Ur Squamous Epith Cells (NONE SEEN /HPF) NONE S EEN Ur Transition Epith Cell (NONE SEEN /HPF) 3+ H Urine Bacteria (NONE SEEN /HPF) TRACE Urine Mucus (NONE SEEN /LPF) TRACE 08/25 08/24 08/24 08/24 0744 2130 1748 1700 Chemistry POC Glucose (70 - 110 MG/DL) 166 H 140 H 136 H Toxicology Random Vancomycin (mcg/mL) 9.6 Diagnosis, Assessment Plan Free Text A P: Concern for prostate hypodensity. PSA 0.9. prost ate cancer or abscess would most likely elevate his PSA. MRI of pelv is shows cystic structure on left near SV and lateral border of prostate. Will attempt aspiration vs unroofing. May not be accessible vis the urethra at 1542 RPT #:[id number] END OF REPORT 2022-08-25 11:03:00-00:00 [facility] ([facility]) Hospitalist Progress Note REPORT#:[id number] REPORT STATUS: Signed DATE:08/25/22 TIME: 1103 PATIENT: KARMA ROWLAND UNIT #: [id number] ROOM/BED: [facility]-1 : 61 AGE: 56 SEX: M ATTEND: Mikayla Ramires MD ADM AUTHOR: Meera Chavira DO * ALL edits or amendments must be made on the el [employer]/computer document * Subjective Chief complaint: AMS and right foot infection. s/p extensive debridement. No acute issues. Pain controlled. D iscussed with family at bedside. Review of Systems All systems rev neg: except as noted Objective General VS/I O: Vital Signs: Date Time Temp Pulse Resp B/P B/P Pulse O2 O2 F low FiO2 Mean Ox Delivery Rate 04/ 0400 97.9 91 15 138/64 88 98 04/03 0200 91 14 117/57 81 99 04/03 0100 93 16 120/56 81 98 04/03 0000 97 16 125/58 84 98 04/02 2300 100 15 120/58 81 98 04/02 2300 98.5 94 15 125/58 80 99 04/02 2200 107 21 162/74 106 100 04/02 2100 101 17 148/70 101 99 04/02 2000 99 23 130/60 86 98 04/02 1900 98.4 102 15 162/74 103 98 Room air 04/02 1900 97 18 117/58 83 100 04/02 1800 98 18 134/56 85 100 04/02 1700 96 15 132/64 91 99 04/02 1600 98.2 04/02 1600 96 18 134/60 87 99 04/02 1501 98 21 126/58 83 99 04/02 1401 102 25 159/74 102 99 04/02 1300 100 12 157/72 103 100 04/02 1200 98.1 04/02 1200 98 18 148/72 98 100 24 hour I O ending at 0700: 04/ 0700 04/02 1900 Intake Total 1280 Output Total 700 850 Balance -700 430 Intake, Oral 1280 Number 3 Bowel Movements Output, Urine 700 850 PATIENT WEIGHT: Weight (lb): 160 Weight (oz): 15 Weight (kg): 72.575 Medications: Active Meds + DC'd Last 24 Hrs Ceftaroline Fosamil (TEFLARO) 600 MG Q8H IV (CKD ) Sodium Chloride (SODIUM CHLORIDE 0.9%) 100 ML Daptomycin (CUBICIN 500MG) 700 MG Q24H IV (CKD) Sodium Chloride (SODIUM CHLORIDE 0.9%) 50 ML Vancomycin HCl (VANCOMYCIN HCL) 1,000 MG ONCE ON E IV (DC) Sodium Chloride (SODIUM CHLORIDE 0.9%) 250 ML Famotidine (PEPCID) 20 MG BID PO Lorazepam (ATIVAN) 1 MG ONCE PRN IV Sodium Chloride (SODIUM CHLORIDE) 0 ASDIR PRN IV Insulin Glargine (Lantus/Semglee) 25 UNIT BEDTIM E SUBQ Insulin Human Lispro (HUMALOG) 7 UNIT AC SUBQ Insulin Human Lispro (HUMALOG) 0 AC HS SUBQ Dextrose/Water (DEXTROSE 10% IN WATER) 125 ML DIR PRN IV (CKD) Dextrose/Water (DEXTROSE 10% IN WATER) 250 ML DIR PRN IV (CKD) Glucagon (GLUCAGON) 1 MG ASDIR PRN IM Dextrose/Water (Dextrose 10% 1,000 mL) 1,000 ML ASDIR IV Acetaminophen (TYLENOL) 650 MG Q6H PRN PRN PO Bisacodyl (DULCOLAX) 10 MG DAILY PRN PRN RECTAL Docusate Sodium (COLACE) 100 MG Q12H PRN PRN PO Ondansetron HCl (ZOFRAN) 4 MG Q6H PRN PRN IV Heparin Sodium (HEPARIN 5000 UNITS/ML) 5,000 UNI T Q8HR SUBQ Miscellaneous Information (VANCOMYCIN PHARMACY T O DOSE) 1 EACH ASDIR IV (DC) Physical Exam General appearance: no acute distress, no respir atory distress Head/Eyes: normocephalic ENT: moist mucosal membranes Neck: no JVD Cardiovascular: regular rate rhythm, no heave Respiratory: aerating well, clear to auscultatio n, symmetric expansion, no distress Abdomen: non-tender, normal bowel sounds, soft, no distention Genitourinary: no bladder distention Extremities: R foot in dressing 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 X 3, 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 Considered stroke alert: no Skin: no rash Psychiatry: normal affect, normal judgment/insig ht, normal mood Results Findings/Data: Laboratory Tests 08/25 08/25 08/24 08/24 08/24 0750 0744 2130 1748 1200 Chemistry Sodium (134 - 147 mEq/L) 135 Potassium (3.4 - 5.0 mEq/L) 5.4 H Chloride (100 - 108 mEq/L) 110 H Carbon Dioxide (21 - 33 mEq/l) 19 L Anion Gap (0 - 20) 11 BUN (7 - 18 mg/dL) 25 H Creatinine (0.6 - 1.3 mg/dL) 1.1 Glomerular Filtr Rate (90 - 95) 77.8 L Glucose (70 - 110 mg/dL) 162 H POC Glucose (70 - 110 MG/DL) 166 H 140 H 136 H 129 H Calcium (8.0 - 10.5 mg/dL) 7.3 L Ionized Calcium Mitzi (1.09 - 1.30 MMOL/L) 0.96 L Phosphorus (2.5 - 4.9 MG/DL) 4.5 Magnesium (1.80 - 2.40 mg/dL) 1.88 Total Bilirubin (0.0 - 1.0 mg/dL) 0.50 AST (15 - 37 IUnit/L) 40 H ALT (30 - 65 IUnit/L) 21 L Total Alk Phosphatase (20 - 125 IUnit/L) 159 H Total Protein (6.4 - 8.2 g/dL) 5.6 L Albumin (3.4 - 5.0 g/dL) 1.30 L Laboratory Tests 08/25 0750 Hematology WBC (4.5 - 11.0 x10 3/uL) 17.9 H RBC (4.00 - 5.60 x10 6/uL) 2.64 L Hgb (12.5 - 16.9 g/dL) 7.3 L Hct (37.5 - 50.7 %) 22.6 L MCV (81.0 - 99.0 fL) 85.6 MCH (27.0 - 33.0 pg) 27.7 MCHC (33.0 - 37.0 g/dL) 32.3 L RDW (11.5 - 14.5 %) 15.1 H Plt Count (150 - 400 x10 3/uL) 226 MPV (7.0 - 9.0 fL) 10.7 H Neut % (Auto) (56.0 - 77.0 %) 86.3 H Lymph % (Auto) (14.0 - 32.0 %) 8.1 L Boundary % (Auto) (4.8 - 9.0 %) 4.3 L Eos % (Auto) (0.3 - 3.7 %) 0.5 Baso % (Auto) (0.0 - 2.0 %) 0.1 Neut # (Auto) (2.0 - 7.6 x10 3/uL) 15.44 H Lymph # (Auto) (1.0 - 3.8 x10 3/uL) 1.45 Boundary # (Auto) (0.1 - 0.8 x10 3/uL) 0.77 Eos # (Auto) (0.0 - 0.2 x10 3/uL) 0.09 Baso # (Auto) (0.0 - 0.2 x10 3/uL) 0.02 Abs Immat Gran (auto) (0.00 - 0.03 x10 3/uL) 0. 13 H Add Manual Diff NO Immature Gran % (0.0 - 2.0 %) 0.7 Nucleated RBC % (0 - 0 %) 0.0 Nucleated RBCs # (Man) (0.0 - 0.1 x10 3/uL) 0.0 0 Laboratory Tests 08/24 1700 Toxicology Random Vancomycin (mcg/mL) 9.6 Diagnosis, Assessment Plan Free Text DxA P Notes Free text DxA P notes: DKA DM 2, poorly controlled severe gas gangrene, right foot/necrotizing fasc itis MRSA bacteremia ERIKA severe hyponatremia likely due to combination of severe hyperglycemia and dehydration from DKA sepsis due to foot infection DM neuropathy HTN anemia, acute due to blood loss Plans: - admit to ICU - continue IV fluids aggressively - monitor lytes and AG - IV insulin drip for now until gap closes - endo eval - keep on Vancomycin and Zosyn - podiatry eval - d.w Wojciech Hernandez - likely will need debridement - MRI of foot ordered - endo eval for management of DM. - HgbA1c of 13.4 - Urology consulted for hypodensity in prostate - ? abscess, not likely. not much symptoms - lovenox for VTE - check iron panel, TSH - fall precautions - not much pain needs likely due to neuropathy 08/19/2022 - blood cultures showing MRSA - Echo ordered - continue Vancomycin/Clinda and Meropenem. Id following - podiatry planning for I D today. Surgery on hal farias if needed to further debride his lower leg vs amputation. - WBC improving - will type and cross for blood and transfuse i f less than 7 gms - d.w at bedside - patient and is aware that he may require amputation if his tissues are non viable - remains on Insulin drip. blood sugars in the 200-300 range. AG has closed. endocrine is following. - keep in ICU 08/20/2022 - s/p extensive I D of right foot. - tissue cx showing MRSA - follow echo results - WBC remains elevated - continue IV antibiotics - MRI of pelvis pending to eval prostate lesion - MRI of foot pending to eval for osteo. - wean off insulin drip. Subq insulin and slidi ng scale. 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 will likely nee d wound vac at some point - off insulin drip - tolerating diet. d/c IV fluids - pain controlled - awaiting MRI of his foot and pelvis - fall precautions - transfer to floor 08/22/2022 - continue Vanco and Clinda IV - pulse lavage for wound care - pain control - blood sugars reasonably controlled - mobilize - fall precautions - follow hgb and transfuse as needed - awaiting floor transfer 08/23/2022 - transfuse blood for anemia. no overt blood lo ss - continue IV antibiotics - mobilize - pulse lavage to wound. ? wound vac - continue to monitor blood sugars - floor transfer - d/w 08/24/2022 - follow hgb and transfuse as needed - IV antibiotics - anesthesia consult for MRI - blood sugars ok - pulse lavage - await podiatry eval for wound care - ? wound vac - d.w at bedside 08/25/22 Continue abx (Dapto and Teflaro) as per ID Updated Urology on MRI resul ts, Dr. Bass will review images and discuss with family for possible prostate/seminal vesicle abs cess Cont wound care as per Podiatry, may have debrid ement today BP and BS well controlled K+ high, repeat level Hgb 7.3 stable Discussed with at bedside Electronically Signed by Meera Chavira DO on 3 at 1112 RPT #:[id number] END OF REPORT 2022-08-25 10:01:00-00:00 [facility] ([facility]) Cardiology Progress Note REPORT#:[id number] REPORT STATUS: Signed DATE:08/25/22 TIME: 1001 PATIENT: KARMA ROWLAND UNIT #: [id number] ROOM/BED: [facility]25-1 : 61 AGE: 56 SEX: M ATTEND: Mikayla Ramires MD ADM AUTHOR: Rohit Benitez CLAY MILLER * ALL edits or amendments must be made on the [employer]/computer document * EmmanuelRenettanirmalavielka Schmidt 08/25/22 1001: Subjective Chief complaint: foot infection Free Text Subj Notes Free Text Subj Notes: No new symptoms, feeling well. Receiving wound c are at bedside. Telemetry: Sinus rhythm Objective General VS/I O: 24 hour I O ending at 0700: 04/03 0700 04/02 1900 Intake Total 1280 Output Total 700 850 Balance -700 430 Intake, Oral 1280 Number 3 Bowel Movements Output, Urine 700 850 Vital Signs: Date Time Temp Pulse Resp B/P B/P Pulse O2 O2 Flow FiO2 Mean Ox Delivery Rate 04/ 0400 97.9 91 15 138/64 88 98 04/03 0200 91 14 117/57 81 99 04/03 0100 93 16 120/56 81 98 04/03 0000 97 16 125/58 84 98 04/02 2300 100 15 120/58 81 98 04/02 2300 98.5 94 15 125/58 80 99 04/02 2200 107 21 162/74 106 100 04/02 2100 101 17 148/70 101 99 04/02 2000 99 23 130/60 86 98 04/02 1900 98.4 102 15 162/74 103 98 Room air 04/02 1900 97 18 117/58 83 100 04/02 1800 98 18 134/56 85 100 04/02 1700 96 15 132/64 91 99 04/02 1600 98.2 04/02 1600 96 18 134/60 87 99 04/02 1501 98 21 126/58 83 99 04/02 1401 102 25 159/74 102 99 04/02 1300 100 12 157/72 103 100 04/02 1200 98.1 04/02 1200 98 18 148/72 98 100 04/02 1100 93 12 139/65 94 100 PATIENT WEIGHT: Weight (lb): 160 Weight (oz): 15 Weight (kg): 72.575 Medications: Active Meds + DC'd Last 24 Hrs Ceftaroline Fosamil (TEFLARO) 600 MG Q8H IV (CKD ) Sodium Chloride (SODIUM CHLORIDE 0.9%) 100 ML Daptomycin (CUBICIN 500MG) 700 MG Q24H IV (CKD) Sodium Chloride (SODIUM CHLORIDE 0.9%) 50 ML Vancomycin HCl (VANCOMYCIN HCL) 1,000 MG ONCE ON E IV (DC) Sodium Chloride (SODIUM CHLORIDE 0.9%) 250 ML Famotidine (PEPCID) 20 MG BID PO Lorazepam (ATIVAN) 1 MG ONCE PRN IV Sodium Chloride (SODIUM CHLORIDE) 0 ASDIR PRN IV Insulin Glargine (Lantus/Semglee) 25 UNIT BEDTIM E SUBQ Insulin Human Lispro (HUMALOG) 7 UNIT AC SUBQ Insulin Human Lispro (HUMALOG) 0 AC HS SUBQ Dextrose/Water (DEXTROSE 10% IN WATER) 125 ML DIR PRN IV (CKD) Dextrose/Water (DEXTROSE 10% IN WATER) 250 ML DIR PRN IV (CKD) Glucagon (GLUCAGON) 1 MG ASDIR PRN IM Dextrose/Water (Dextrose 10% 1,000 mL) 1,000 ML ASDIR IV Acetaminophen (TYLENOL) 650 MG Q6H PRN PRN PO Bisacodyl (DULCOLAX) 10 MG DAILY PRN PRN RECTAL Docusate Sodium (COLACE) 100 MG Q12H PRN PRN PO Ondansetron HCl (ZOFRAN) 4 MG Q6H PRN PRN IV Heparin Sodium (HEPARIN 5000 UNITS/ML) 5,000 UNI T Q8HR SUBQ Miscellaneous Information (VANCOMYCIN PHARMACY T O DOSE) 1 EACH ASDIR IV (DC) Physical Exam General appearance: alert, awake, oriented Neck: no bruit/NL carotids, no JVD Cardiovascular: CV assessment: abnormal S1/S2, regular rate and rhythm, no ectopy Respiratory: clear to auscultation, no distress Lower extremity: LE assessment: edema 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 X 3 Considered stroke alert: no Wound/incision: Location: right foot Psychiatry: normal affect, normal judgment/insig ht, normal mood Results Findings/Data: Laboratory Tests 08/25 08/25 08/24 08/24 08/24 0750 0744 2130 1748 1200 Chemistry Sodium (134 - 147 mEq/L) 135 Potassium (3.4 - 5.0 mEq/L) 5.4 H Chloride (100 - 108 mEq/L) 110 H Carbon Dioxide (21 - 33 mEq/l) 19 L Anion Gap (0 - 20) 11 BUN (7 - 18 mg/dL) 25 H Creatinine (0.6 - 1.3 mg/dL) 1.1 Glomerular Filtr Rate (90 - 95) 77.8 L Glucose (70 - 110 mg/dL) 162 H POC Glucose (70 - 110 MG/DL) 166 H 140 H 136 H 129 H Calcium (8.0 - 10.5 mg/dL) 7.3 L Ionized Calcium Mitzi (1.09 - 1.30 0.96 L MMOL/L) Phosphorus (2.5 - 4.9 MG/DL) 4.5 Magnesium (1.80 - 2.40 mg/dL) 1.88 Total Bilirubin (0.0 - 1.0 mg/dL) 0.50 AST (15 - 37 IUnit/L) 40 H ALT (30 - 65 IUnit/L) 21 L Total Alk Phosphatase (20 - 125 159 H IUnit/L) Total Protein (6.4 - 8.2 g/dL) 5.6 L Albumin (3.4 - 5.0 g/dL) 1.30 L Laboratory Tests 08/25 0750 Hematology WBC (4.5 - 11.0 x10 3/uL) 17.9 H RBC (4.00 - 5.60 x10 6/uL) 2.64 L Hgb (12.5 - 16.9 g/dL) 7.3 L Hct (37.5 - 50.7 %) 22.6 L MCV (81.0 - 99.0 fL) 85.6 MCH (27.0 - 33.0 pg) 27.7 MCHC (33.0 - 37.0 g/dL) 32.3 L RDW (11.5 - 14.5 %) 15.1 H Plt Count (150 - 400 x10 3/uL) 226 MPV (7.0 - 9.0 fL) 10.7 H Neut % (Auto) (56.0 - 77.0 %) 86.3 H Lymph % (Auto) (14.0 - 32.0 %) 8.1 L Boundary % (Auto) (4.8 - 9.0 %) 4.3 L Eos % (Auto) (0.3 - 3.7 %) 0.5 Baso % (Auto) (0.0 - 2.0 %) 0.1 Neut # (Auto) (2.0 - 7.6 x10 3/uL) 15.44 H Lymph # (Auto) (1.0 - 3.8 x10 3/uL) 1.45 Boundary # (Auto) (0.1 - 0.8 x10 3/uL) 0.77 Eos # (Auto) (0.0 - 0.2 x10 3/uL) 0.09 Baso # (Auto) (0.0 - 0.2 x10 3/uL) 0.02 Abs Immat Gran (auto) (0.00 - 0.03 x10 3/uL) 0. 13 H Add Manual Diff NO Immature Gran % (0.0 - 2.0 %) 0.7 Nucleated RBC % (0 - 0 %) 0.0 Nucleated RBCs # (Man) (0.0 - 0.1 x10 3/uL) 0.0 0 Laboratory Tests 08/24 1700 Toxicology Random Vancomycin (mcg/mL) 9.6 Laboratory Tests 08/25 0750 Chemistry Magnesium (1.80 - 2.40 mg/dL) 1.88 Diagnosis, Assessment Plan Free Text DxA P Notes Free Text DxA P Notes: Impression: 1. Preop eval/cardiac clearance 2. Infected right foot gas gangrene 3. DKA 4. Sepsis 5. Hypertension 6. Anemia Recommendation: Patient presented for evalua tion of altered mental status, weakness and elevated blood sugar. Diagnosed with DKA and seps is. 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 Known cardiac history of hypertensio n and hyperlipidemia. Denies prior history of CAD, CHF or arrhythmia. EKG abn ormal, NSR with anterior infarct. Vital signs stable. No prior cardiac wo rk-up. -Check echocardiogram -Monitor telemetry for arrhythmia -Monitor blood pressure trend -Wound care and IV antibiotic therapy -Supportive care 08/19: Patient doing better postop, blood pressur e control, currently in sinus rhythm, lower extremity artery Doppler negative for any significant PAD, continue current management from primary team an d podiatry service, continue monitor on telemetry for arrhythmia postop, supp ortive care, discussed with patient and family as well as RN, will follow. 08/21: Patient overall doing well, awake and irish rt today. Blood pressure well controlled. Currently in sinus rhythm to sinus t achycardia, will continue to monitor. Echocardiogram shows LVEF of 55 to 69%, no regional wall motion abnormalities, grade 1 diastolic dysfunction, an d mildly dilated LA. continue antibiotic therapy and wound care. Supportive ca re. Plan of care discussed with patient, RN and Dr. Parham. 08/22: No Significant changes from cardiac stand point. Vital signs stable. Telemetry monitoring reviewed, sinus rhythm to s inus tachycardia. We will continue monitor, sinus tachycardia likely relat ed to underlying infection. Continue wound care and antibiotic therapy. Supp ortive care. Plan of care discussed with patient, RN and Dr. Parham. 08/23: Stable cardiac status. Blood pressure and heart rate well controlled. Continue monitor telemetry. Continue wound care. Plan to transfer to floor. Supportive care. Plan of care discussed with lori hart RN and Dr. Parham. 08/24: Patient overall doing well, remains stabl e from cardiac standpoint. Blood pressure and heart rat e well controlled. No new events noted on telemetry monitoring. Remains in sinus rhythm by physical examination. Continue wound care. Supportive care. Plan of care discussed wi th patient, RN and Dr. Parham. 08/25: Remain stable from cardiac standpoint. Bl ood pressure well controlled. Currently in sinus rhythm by physical examinatio n. Possible plan for another wound debridement today. Pain management and sup portive care. Plan of care discussed with patient, RN and Dr. Parham. Gianni Parham 08/27/22 0826: Diagnosis, Assessment Plan Additional comments: Patient was seen and examined at bedside , agree with above assessment and plan as documented by nurse practitioner. Will follow . Electronically Signed by Rohit Benitez NP on 0 08/25/22 at 1733 at 0829 RPT #:[id number] END OF REPORT 2022-08-24 17:55:00-00:00 [facility]) Podiatry Progress Note REPORT#:[id number] REPORT STATUS: Signed DATE:08/24/22 TIME: 1755 PATIENT: KARMA ROWLAND UNIT #: [id number] ROOM/BED: M325-1 : 63 AGE: 56 SEX: M ATTEND: Mikayla Ramires MD ADM AUTHOR: Rosa Pratt DPCandelaria * ALL edits or amendments must be made on the el ectronic/computer document * Subjective Chief complaint: seen at bedside,. family memebers next to him denies having any pain foot covered and protected and offloaded drainage noted serosang. increased warmth Objective General VS: Last Documented: Result Date Time Temp 36.7 04/ 1200 Pulse Ox 99 / 0601 B/P 121/62 08/24 0601 B/P Mean 83 08/24 0601 Pulse 100 08/24 0601 Resp 19 08/24 0601 O2 Delivery Room air 08/23 0400 O2 Flow Rate 2 08/21 0800 PATIENT WEIGHT: Weight (lb): 160 Weight (oz): 15 Weight (kg): 72.575 Medications: Active Meds + DC'd Last 24 Hrs Famotidine (PEPCID) 20 MG BID PO Lorazepam (ATIVAN) 1 MG ONCE PRN IV Sodium Chloride (SODIUM CHLORIDE) 0 ASDIR PRN IV Insulin Glargine (Lantus/Semglee) 25 UNIT BEDTIM E SUBQ Insulin Human Lispro (HUMALOG) 7 UNIT AC SUBQ Insulin Human Lispro (HUMALOG) 0 AC HS SUBQ Dextrose/Water (DEXTROSE 10% IN WATER) 125 ML DIR PRN IV (CKD) Dextrose/Water (DEXTROSE 10% IN WATER) 250 ML DIR PRN IV (CKD) Glucagon (GLUCAGON) 1 MG ASDIR PRN IM Dextrose/Water (Dextrose 10% 1,000 mL) 1,000 ML ASDIR IV Acetaminophen (TYLENOL) 650 MG Q6H PRN PRN PO Bisacodyl (DULCOLAX) 10 MG DAILY PRN PRN RECTAL Docusate Sodium (COLACE) 100 MG Q12H PRN PRN PO Ondansetron HCl (ZOFRAN) 4 MG Q6H PRN PRN IV Heparin Sodium (HEPARIN 5000 UNITS/ML) 5,000 UNI T Q8HR SUBQ Miscellaneous Information (VANCOMYCIN PHARMACY T O DOSE) 1 EACH ASDIR IV (CKD) I O: 24 hour I O ending at 0700: 0402 0700 08/23 1900 Intake Total 480 1610.00 Output Total 750 1950 Balance -270 -340.00 Intake, IV 300.00 Intake, Oral 480 960 Intake, 350 Packed Cells Number 5 Bowel Movements Output, Urine 750 1950 Dietitian nutrition assessment The data set between the solid lines has been im ported from the dietitian's assessment. BMI Calculated: 25.8 Nutrition related diagnosis: Nutrition diagnosis details: Nutrition problem: Nutrition etiology: Nutrition signs and symptoms: Nutrition prescription: Dietitian name: Assessment completed: Physical Exam Wound/incision: Location: Right foot to right ankle. DP and PT pulses are very weak essentially nonp alpable. There is severe edema of the right foot to the right ankle, better. There is erythema of the right foot to the righ t ankle, much better. Not really any ascending lymphangitis past ther e. Crepitation is at the medial right hindfoot and the dorsal right midfoot are significantly less. There is no longer crepitation at the lateral r ight ankle. There is some bullae that are peeling medial an d lateral. Sensation is greatly decreased on the right janelle t. base of three wounds fibrotic. sero purulent drainage. bones and tendons exposed. LE vascular pulse assess: Nonpalpable R posterior tibialis, Nonpalpable R dorsalis pedis Considered stroke alert: no Results Findings/Data: Laboratory Tests: 08/24 08/24 08/24 08/24 1700 1200 0749 0630 Chemistry Sodium (134 - 147 mEq/L) 133 L Potassium (3.4 - 5.0 mEq/L) 4.4 Chloride (100 - 108 mEq/L) 107 Carbon Dioxide (21 - 33 mEq/l) 22 Anion Gap (0 - 20) 9 BUN (7 - 18 mg/dL) 38 H Creatinine (0.6 - 1.3 mg/dL) 1.3 Glomerular Filtr Rate (90 - 95) 63.7 L Glucose (70 - 110 mg/dL) 203 H POC Glucose (70 - 110 MG/DL) 129 H 195 H Calcium (8.0 - 10.5 mg/dL) 7.5 L Ionized Calcium Mitzi (1.09 - 1.30 MMOL/L) 1.09 Phosphorus (2.5 - 4.9 MG/DL) 4.1 Magnesium (1.80 - 2.40 mg/dL) 1.80 Total Bilirubin (0.0 - 1.0 mg/dL) 0.60 AST (15 - 37 IUnit/L) 35 ALT (30 - 65 IUnit/L) 18 L Total Alk Phosphatase (20 - 125 IUnit/L) 176 H Total Protein (6.4 - 8.2 g/dL) 5.8 L Albumin (3.4 - 5.0 g/dL) 1.50 L Hematology WBC (4.5 - 11.0 x10 3/uL) 16.3 H RBC (4.00 - 5.60 x10 6/uL) 2.71 L Hgb (12.5 - 16.9 g/dL) 7.4 L Hct (37.5 - 50.7 %) 22.7 L MCV (81.0 - 99.0 fL) 83.8 MCH (27.0 - 33.0 pg) 27.3 MCHC (33.0 - 37.0 g/dL) 32.6 L RDW (11.5 - 14.5 %) 14.9 H Plt Count (150 - 400 x10 3/uL) 212 MPV (7.0 - 9.0 fL) 10.4 H Neut % (Auto) (56.0 - 77.0 %) 85.7 H Lymph % (Auto) (14.0 - 32.0 %) 7.7 L Boundary % (Auto) (4.8 - 9.0 %) 4.7 L Eos % (Auto) (0.3 - 3.7 %) 0.6 Baso % (Auto) (0.0 - 2.0 %) 0.1 Neut # (Auto) (2.0 - 7.6 x10 3/uL) 13.99 H Lymph # (Auto) (1.0 - 3.8 x10 3/uL) 1.25 Boundary # (Auto) (0.1 - 0.8 x10 3/uL) 0.76 Eos # (Auto) (0.0 - 0.2 x10 3/uL) 0.09 Baso # (Auto) (0.0 - 0.2 x10 3/uL) 0.02 Abs Immat Gran (auto) (0.00 - 0.03 x10 3/uL) 0. 20 H Add Manual Diff NO Immature Gran % (0.0 - 2.0 %) 1.2 Nucleated RBC % (0 - 0 %) 0.0 Nucleated RBCs # (Man) (0.0 - 0.1 x10 3/uL) 0.0 0 Toxicology Random Vancomycin (mcg/mL) 9.6 08/24 08/23 08/23 0307 2057 1930 Chemistry POC Glucose (70 - 110 MG/DL) 189 H 161 H 146 H Results: labs reviewed Diagnosis, Assessment Plan Free Text A P: Gas gangrene right foot and right ankle (Gas in tissues/abscess) Diabetes with peripheral neuropathy Minimal peripheral vascular disease Leukocytosis Sepsis DKA s/p surgical debridement and washout CAT scan shows gas in 3 locations X-rays right foot show no osseous change packing with Iodoform. IV antibiotics Monitor leukocytosis NIAS: minimal PVD right 08/18 wound culture: MRSA (This one is not accura te, it is of skin that was intact) 08/19 OR culture: MRSA blood cultures: MRSA Offloading boot ICU for now pulse lavage by physical therapy MRI: osteo of entire hindfoot essentially discussed with Dr. Curtis..... extensive tissue loss and continued positive blood cultures.... if doesnt improve greatly in 1-2 da ys plan will be BKA. and sister and patient aware 08/24/22 seen at [facility] with family at risk for bka. continue wound care iv abx pain control d/w dr wojciech justin follow tomorrow Electronically Signed by Rosa Pratt DPM on 09/14 at 1823 RPT #:[id number] END OF REPORT 2022-08-24 16:19:00-00:00 [facility] ([facility]) Cardiology Progress Note REPORT#:[id number] REPORT STATUS: Signed DATE:08/24/22 TIME: 1619 PATIENT: KARMA ROWLAND UNIT #: [id number] ROOM/BED: M325-1 : 63 AGE: 56 SEX: M ATTEND: Mikayla Ramires MD ADM AUTHOR: Rohit Benitez CLAY MILLER * ALL edits or amendments must be made on the [employer]/computer document * Rohit Benitez 08/24/22 1619: Subjective Chief complaint: foot infection Free Text Subj Notes Free Text Subj Notes: No new symptoms, feeling well Telemetry: Sinus rhythm Objective General VS/I O: 24 hour I O ending at 0700: 08/24 0700 08/23 1900 Intake Total 480 1610.00 Output Total 750 1950 Balance -270 -340.00 Intake, IV 300.00 Intake, Oral 480 960 Intake, 350 Packed Cells Number 5 Bowel Movements Output, Urine 750 1950 Vital Signs: Date Time Temp Pulse Resp B/P B/P Pulse O2 O2 F low FiO2 Mean Ox Delivery Rate 08/24 1200 98.1 08/24 0800 98.0 / 0601 100 19 121/62 83 99 04/ 0500 93 15 123/73 93 100 04/ 0400 98.5 04/ 0400 86 15 111/58 81 97 04/ 0300 89 16 118/58 82 98 04/02 0200 92 13 131/63 90 99 04/02 0100 92 14 135/61 88 98 04/02 0038 92 04/02 0000 98.1 04/ 0000 95 19 137/61 93 99 04 2300 93 17 121/56 80 99 04 2200 94 17 127/63 89 97 04/ 2100 93 21 137/64 92 100 08/23 2000 98.2 08/24 1999 87 20 121/60 85 99 04/ 1901 95 21 124/60 84 99 04 1801 97 23 117/58 83 100 04/ 1700 97 22 119/56 80 98 PATIENT WEIGHT: Weight (lb): 160 Weight (oz): 15 Weight (kg): 72.575 Medications: Active Meds + DC'd Last 24 Hrs Vancomycin HCl (VANCOMYCIN HCL) 750 MG ONCE ONE IV (DC) Sodium Chloride (SODIUM CHLORIDE 0.9%) 250 ML Famotidine (PEPCID) 20 MG BID PO Lorazepam (ATIVAN) 1 MG ONCE PRN IV Sodium Chloride (SODIUM CHLORIDE) 0 ASDIR PRN IV Insulin Glargine (Lantus/Semglee) 25 UNIT BEDTIM E SUBQ Insulin Human Lispro (HUMALOG) 7 UNIT AC SUBQ Insulin Human Lispro (HUMALOG) 0 AC HS SUBQ Dextrose/Water (DEXTROSE 10% IN WATER) 125 ML DIR PRN IV (CKD) Dextrose/Water (DEXTROSE 10% IN WATER) 250 ML DIR PRN IV (CKD) Glucagon (GLUCAGON) 1 MG ASDIR PRN IM Dextrose/Water (Dextrose 10% 1,000 mL) 1,000 ML ASDIR IV Acetaminophen (TYLENOL) 650 MG Q6H PRN PRN PO Bisacodyl (DULCOLAX) 10 MG DAILY PRN PRN RECTAL Docusate Sodium (COLACE) 100 MG Q12H PRN PRN PO Ondansetron HCl (ZOFRAN) 4 MG Q6H PRN PRN IV Heparin Sodium (HEPARIN 5000 UNITS/ML) 5,000 UNI T Q8HR SUBQ Miscellaneous Information (VANCOMYCIN PHARMACY T O DOSE) 1 EACH ASDIR IV (CKD) Physical Exam General appearance: alert, awake, oriented Neck: no bruit/NL carotids, no JVD Cardiovascular: CV assessment: abnormal S1/S2, regular rate and rhythm, no ectopy Respiratory: clear to auscultation, no distress Lower extremity: LE assessment: edema 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 X 3 Considered stroke alert: no Wound/incision: Location: right foot Psychiatry: normal affect, normal judgment/insig ht, normal mood Results Findings/Data: Laboratory Tests 08/24 08/24 08/24 08/24 08/23 1200 0749 0630 030 2058 Chemistry Sodium (134 - 147 mEq/L) 133 L Potassium (3.4 - 5.0 mEq/L) 4.4 Chloride (100 - 108 mEq/L) 107 Carbon Dioxide (21 - 33 mEq/l) 22 Anion Gap (0 - 20) 9 BUN (7 - 18 mg/dL) 38 H Creatinine (0.6 - 1.3 mg/dL) 1.3 Glomerular Filtr Rate (90 - 95) 63.7 L Glucose (70 - 110 mg/dL) 203 H POC Glucose (70 - 110 MG/DL) 129 H 195 H 189 H 161 H Calcium (8.0 - 10.5 mg/dL) 7.5 L Ionized Calcium Mitzi (1.09 - 1.30 1.09 MMOL/L) Phosphorus (2.5 - 4.9 MG/DL) 4.1 Magnesium (1.80 - 2.40 mg/dL) 1.80 Total Bilirubin (0.0 - 1.0 mg/dL) 0.60 AST (15 - 37 IUnit/L) 35 ALT (30 - 65 IUnit/L) 18 L Total Alk Phosphatase (20 - 125 176 H IUnit/L) Total Protein (6.4 - 8.2 g/dL) 5.8 L Albumin (3.4 - 5.0 g/dL) 1.50 L 08/23 08/23 1930 1620 Chemistry POC Glucose (70 - 110 MG/DL) 146 H 126 H Laboratory Tests 08/24 0630 Hematology WBC (4.5 - 11.0 x10 3/uL) 16.3 H RBC (4.00 - 5.60 x10 6/uL) 2.71 L Hgb (12.5 - 16.9 g/dL) 7.4 L Hct (37.5 - 50.7 %) 22.7 L MCV (81.0 - 99.0 fL) 83.8 MCH (27.0 - 33.0 pg) 27.3 MCHC (33.0 - 37.0 g/dL) 32.6 L RDW (11.5 - 14.5 %) 14.9 H Plt Count (150 - 400 x10 3/uL) 212 MPV (7.0 - 9.0 fL) 10.4 H Neut % (Auto) (56.0 - 77.0 %) 85.7 H Lymph % (Auto) (14.0 - 32.0 %) 7.7 L Boundary % (Auto) (4.8 - 9.0 %) 4.7 L Eos % (Auto) (0.3 - 3.7 %) 0.6 Baso % (Auto) (0.0 - 2.0 %) 0.1 Neut # (Auto) (2.0 - 7.6 x10 3/uL) 13.99 H Lymph # (Auto) (1.0 - 3.8 x10 3/uL) 1.25 Boundary # (Auto) (0.1 - 0.8 x10 3/uL) 0.76 Eos # (Auto) (0.0 - 0.2 x10 3/uL) 0.09 Baso # (Auto) (0.0 - 0.2 x10 3/uL) 0.02 Abs Immat Gran (auto) (0.00 - 0.03 x10 3/uL) 0. 20 H Add Manual Diff NO Immature Gran % (0.0 - 2.0 %) 1.2 Nucleated RBC % (0 - 0 %) 0.0 Nucleated RBCs # (Man) (0.0 - 0.1 x10 3/uL) 0.0 0 Laboratory Tests 08/24 0630 Chemistry Magnesium (1.80 - 2.40 mg/dL) 1.80 Diagnosis, Assessment Plan Free Text DxA P Notes Free Text DxA P Notes: Impression: 1. Preop eval/cardiac clearance 2. Infected right foot gas gangrene 3. DKA 4. Sepsis 5. Hypertension 6. Anemia Recommendation: Patient presented for evalua tion of altered mental status, weakness and elevated blood sugar. Diagnosed with DKA and seps is. 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 Known cardiac history of hypertensio n and hyperlipidemia. Denies prior history of CAD, CHF or arrhythmia. EKG abn ormal, NSR with anterior infarct. Vital signs stable. No prior cardiac wo rk-up. -Check echocardiogram -Monitor telemetry for arrhythmia -Monitor blood pressure trend -Wound care and IV antibiotic therapy -Supportive care 08/19: Patient doing better postop, blood pressur e control, currently in sinus rhythm, lower extremity artery Doppler negative for any significant PAD, continue current management from primary team an d podiatry service, continue monitor on telemetry for arrhythmia postop, supp ortive care, discussed with patient and family as well as RN, will follow. 08/21: Patient overall doing well, awake and irish rt today. Blood pressure well controlled. Currently in sinus rhythm to sinus t achycardia, will continue to monitor. Echocardiogram shows LVEF of 55 to 69%, no regional wall motion abnormalities, grade 1 diastolic dysfunction, an d mildly dilated LA. continue antibiotic therapy and wound care. Supportive ca re. Plan of care discussed with patient, RN and Dr. Parham. 08/22: No Significant changes from cardiac stand point. Vital signs stable. Telemetry monitoring reviewed, sinus rhythm to s inus tachycardia. We will continue monitor, sinus tachycardia likely relat ed to underlying infection. Continue wound care and antibiotic therapy. Supp ortive care. Plan of care discussed with patient, RN and Dr. Parham. 08/23: Stable cardiac status. Blood pressure and heart rate well controlled. Continue monitor telemetry. Continue wound care. Plan to transfer to floor. Supportive care. Plan of care discussed with lori hart RN and Dr. Parham. 08/24: Patient overall doing well, remains stabl e from cardiac standpoint. Blood pressure and heart rat e well controlled. No new events noted on telemetry monitoring. Remains in sinus rhythm by physical examination. Continue wound care. Supportive care. Plan of care discussed wi th patient, RN and Dr. Parham. Gianni Parham 08/24/22 2216: Diagnosis, Assessment Plan Additional comments: Patient was seen and examined at bedside , agree with above assessment and plan as documented by nurse practitioner. Will follow . Electronically Signed by Rohit Benitez NP on 0 08/24/22 at 1824 at 2258 RPT #:[id number] END OF REPORT 2022-08-24 15:41:00-00:[address] [facility] ([facility]) Pharmacy Prog.Note-Vancomycin REPORT#:[id number] REPORT STATUS: Signed DATE:08/24/22 TIME: 1541 PATIENT: KARMA ROWLAND UNIT #: [id number] ROOM/BED: [place] [address] : 63 AGE: 56 SEX: M ATTEND: Mikayla Ramires MD ADM AUTHOR: Tolu Tobias h * ALL edits or amendments must be made on the el [employer]/computer document * See Addendum Vancomycin Vancomycin Medication Therapy Goal: AUC 400-600 mg*hr/L Indication for treatment: Empiric (now confirmed foot infection and bacter emia) Weight: Actual weight (kg): 72.575 VS and I/O: Vital Signs Date Temp Pulse Resp B/P B/P Mean Pulse Ox FiO2 08/21-08/24 36.7-37.4 86-107 11-24 89-159/53-73 65-104 90-100 72 hours ending at 0700 08/24 0708/23 19008/23 19008/21 07 1900 Intake 480 1610.00 15 650.00 340.00 950.00 Total Output 750 5865 759 5866 500 650 Total Balance -270 -340.00 -585 -750.00 -160.00 300.00 Intake, IV 300.00 15 50.00 100.00 300.00 Intake, 480 960 600 240 650 Oral Intake, 350 Packed Cells Number 5 Bowel Movements Output, 750 9536 495 2579 500 650 Urine Patient 72.575 kg Weight 72 Hour I O Total 08/24 07 Intake Total 2090.00 665.00 1290.00 Output Total 2700 2000 1150 Balance -610.00 -1335.00 140.00 Labs: Laboratory Tests: 08/23 08/22 08/21 0320 0830 2015 Toxicology Vancomycin Trough (10.0 - 20.0 mcg/mL) 27.2 *H Random Vancomycin (mcg/mL) 15.3 19.7 Laboratory Test : 08/24 08/23 08/23 08/22 0630 0350 0320 0440 Chemistry BUN (7 - 18 mg/dL) 38 H 45 H 37 H Creatinine (0.6 - 1.3 mg/dL) 1.3 1.5 H 1.3 Hematology WBC (4.5 - 11.0 x10 3/uL) 16.3 H 17.6 H 19.5 H Microbiology: 08/22 173 BLOOD: Blood Culture - RES COAG POS STAPHYLOCOCCUS 08/22 173 BLOOD: Blood Culture Gram Stain - RES 08/22 172 BLOOD: Blood Culture - RES 08/22 172 BLOOD: Blood Culture Gram Stain - RES Treatment plan: consult Regimen: HPI: Karma Rowland is a 3 8 yo male with PMH of DM and HTN who presented with AMS, DKA, and a progressively worsening right fo ot infection. Patient was started empirically on antibiotics. Pharmacy is consulted to dose vancomycin. Requesting Provider: Andrew London MD Indication: Empiric Vancomycin AUC Goal: 400-600 mcg*hr/mL Concomitant Antibiotics: 4/2 A/P: Labs and Vitals: WBC 16.3 (slight decrease) Afebrile with a Tmax of 37.4C over the past 24 hours Renal Function: BUN/SCr 38/1.3 (decrease from 45/1.5) Urine Output with 2700 mL document over the pas t 24 hours Estimated CrCl 59 mL/min (using adjusted body w eight) Microbiology: 08/22 Blood Cx x2: 2/ Coag Pos Staph (Updated ) 08/21 Blood Cx x2: 2/ MRSA (vanc VERONICA = 1) 08/19 Abscess Cx from right foot: Many MRSA (van c VERONICA = 1) 08/18 Blood Cx x2: 2/ MRSA (vanc VERONICA = 1) 08/18 Wound Cx from right foot: Many MRSA (vanc VERONICA = 1) 08/18 Rapid Strep: Negative Imagin/27 TTE: No valvular abnormalities 08/[address]: Extensive soft tissue edema with mottled gas in subcutaneous and intramuscular compartments comp atible with gas-forming infection 08/18 Right foot X-ray: No convincing evidence f or OM Dosing and Monitoring: -Random level this AM was 15.3, appears patient has ERIKA -Random level anticipated to fall <12 tomorrow AM however repeat blood cultures from yesterday are once again positive -BUN, SCr, and UOP have all improved -Patient received one time dose of vancomycin 7 50 mg yesterday afternoon -Plan right now is to dose vancomycin by level -Level has been ordered to be drawn this aftern oon Pharmacy will continue to monitor Thank you for this consult at 1542 Addendum 1: 08/24/22 1758 by Lenny Haynes [facility] 08/24 Update: Level @1700 = 9.6 mcg/ml, Ordered va nc 1gm IV x1 dose. at 1757 RPT #:[id number] END OF REPORT 2022-08-24 07:33:00-00:[address] [facility] ([facility]) Hospitalist Progress Note REPORT#:[id number] REPORT STATUS: Signed DATE:08/24/22 TIME: 732 PATIENT: KARMA ROWLAND UNIT #: [id number] ROOM/BED: [place] [address] : 61 AGE: 56 SEX: M ATTEND: Mikayla Ramires MD ADM AUTHOR: Wilbert Ramires MD * ALL edits or amendments must be made on the el [employer]/computer document * Subjective Chief complaint: AMS and right foot infection. doing ok. not much pain. s/p extensive debridement. off insulin drip. toelrating diet. no pain Review of Systems All systems rev neg: except as noted Objective General VS/I O: Vital Signs: Date Time Temp Pulse Resp B/P B/P Pulse O2 O2 F low FiO2 Mean Ox Delivery Rate 04/ 0601 100 19 121/62 83 99 04/02 0500 93 15 123/73 93 100 04/02 0400 98.5 04/02 0400 86 15 111/58 81 97 04/02 0300 89 16 118/58 82 98 04/02 0200 92 13 131/63 90 99 04/02 0100 92 14 135/61 88 98 04/02 0038 92 04/02 0000 98.1 04/02 0000 95 19 137/61 93 99 04/01 2300 93 17 121/56 80 99 04/01 2200 94 17 127/63 89 97 04/01 2100 93 21 137/64 92 100 04/01 2000 98.2 04/01 2000 87 20 121/60 85 99 04/01 1901 95 21 124/60 84 99 04/01 1801 97 23 117/58 83 100 04/01 1700 97 22 119/56 80 98 04/01 1600 99.3 04/01 1600 95 18 129/60 86 98 04/01 1500 97 16 128/60 87 98 04/01 1400 100 16 126/58 84 97 04/01 1300 99 16 132/61 88 97 04/01 1200 98.9 04/01 1200 96 23 139/64 92 97 04/01 1100 94 13 141/65 94 98 04/01 1013 97 04/01 1000 97 13 137/63 90 04/01 0900 100 24 149/66 95 98 04/01 0845 101 20 149/60 97 98 04/01 0830 99 22 159/72 104 98 04/01 0815 99 20 128/61 89 97 08/23 0800 99.2 08/23 0800 94 14 130/60 88 97 08/23 0745 93 13 131/62 89 97 24 hour I O ending at 0700: 08/24 0700 08/23 1900 Intake Total 480 1610.00 Output Total 750 1950 Balance -270 -340.00 Intake, IV 300.00 Intake, Oral 480 960 Intake, 350 Packed Cells Number 5 Bowel Movements Output, Urine 750 1950 PATIENT WEIGHT: Weight (lb): 160 Weight (oz): 15 Weight (kg): 72.575 Medications: Active Meds + DC'd Last 24 Hrs Vancomycin HCl (VANCOMYCIN HCL) 750 MG ONCE ONE IV (DC) Sodium Chloride (SODIUM CHLORIDE 0.9%) 250 ML Famotidine (PEPCID) 20 MG BID PO Lorazepam (ATIVAN) 1 MG ONCE PRN IV Sodium Chloride (SODIUM CHLORIDE) 0 ASDIR PRN IV Insulin Glargine (Lantus/Semglee) 25 UNIT BEDTIM E SUBQ Insulin Human Lispro (HUMALOG) 7 UNIT AC SUBQ Insulin Human Lispro (HUMALOG) 0 AC HS SUBQ Dextrose/Water (DEXTROSE 10% IN WATER) 125 ML DIR PRN IV (CKD) Dextrose/Water (DEXTROSE 10% IN WATER) 250 ML DIR PRN IV (CKD) Glucagon (GLUCAGON) 1 MG ASDIR PRN IM Dextrose/Water (Dextrose 10% 1,000 mL) 1,000 ML ASDIR IV Clindamycin Phosphate (CLEOCIN 900 MG/NS 50 ML) 50 ML Q8H IV (DC) Acetaminophen (TYLENOL) 650 MG Q6H PRN PRN PO Bisacodyl (DULCOLAX) 10 MG DAILY PRN PRN RECTAL Docusate Sodium (COLACE) 100 MG Q12H PRN PRN PO Hydrocodone Bitart/Acetaminophen (NORCO 5/325) 1 TAB Q4H PRN PRN PO (DC) Morphine Sulfate (morphine SULFATE) 2 MG Q4H NV N PRN IV (DC) Ondansetron HCl (ZOFRAN) 4 MG Q6H PRN PRN IV Heparin Sodium (HEPARIN 5000 UNITS/ML) 5,000 UNI T Q8HR SUBQ Miscellaneous Information (VANCOMYCIN PHARMACY T O DOSE) 1 EACH ASDIR IV (CKD) Physical Exam General appearance: alert, awake, oriented Head/Eyes: normocephalic ENT: moist mucosal membranes Neck: no JVD Cardiovascular: regular rate rhythm, no heave Respiratory: aerating well, clear to auscultatio n, symmetric expansion, no distress Abdomen: non-tender, normal bowel sounds, soft, no distention Genitourinary: no bladder distention Extremities: right foot markedly swollen with violacous disoloratoin of dorsum and lateral area extending t o ankle. There were blisters with some blisters were open. 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 X 3, 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 Considered stroke alert: no Skin: no rash Psychiatry: normal affect, normal judgment/insig ht, normal mood Results Findings/Data: Laboratory Tests 08/24 0307 2058 1930 1620 Chemistry Sodium (134 - 147 mEq/L) 133 L Potassium (3.4 - 5.0 mEq/L) 4.4 Chloride (100 - 108 mEq/L) 107 Carbon Dioxide (21 - 33 mEq/l) 22 Anion Gap (0 - 20) 9 BUN (7 - 18 mg/dL) 38 H Creatinine (0.6 - 1.3 mg/dL) 1.3 Glomerular Filtr Rate (90 - 95) 63.7 L Glucose (70 - 110 mg/dL) 203 H POC Glucose (70 - 110 MG/DL) 189 H 161 H 146 H 126 H Calcium (8.0 - 10.5 mg/dL) 7.5 L Ionized Calcium Mitzi (1.09 - 1.30 1.09 MMOL/L) Phosphorus (2.5 - 4.9 MG/DL) 4.1 Magnesium (1.80 - 2.40 mg/dL) 1.80 Total Bilirubin (0.0 - 1.0 mg/dL) 0.60 AST (15 - 37 IUnit/L) 35 ALT (30 - 65 IUnit/L) 18 L Total Alk Phosphatase (20 - 125 176 H IUnit/L) Total Protein (6.4 - 8.2 g/dL) 5.8 L Albumin (3.4 - 5.0 g/dL) 1.50 L 08/23 08/23 08/23 1326 1229 0812 Chemistry POC Glucose (70 - 110 MG/DL) 102 67 L 120 H Laboratory Tests 08/24 0630 Hematology WBC (4.5 - 11.0 x10 3/uL) 16.3 H RBC (4.00 - 5.60 x10 6/uL) 2.71 L Hgb (12.5 - 16.9 g/dL) 7.4 L Hct (37.5 - 50.7 %) 22.7 L MCV (81.0 - 99.0 fL) 83.8 MCH (27.0 - 33.0 pg) 27.3 MCHC (33.0 - 37.0 g/dL) 32.6 L RDW (11.5 - 14.5 %) 14.9 H Plt Count (150 - 400 x10 3/uL) 212 MPV (7.0 - 9.0 fL) 10.4 H Neut % (Auto) (56.0 - 77.0 %) 85.7 H Lymph % (Auto) (14.0 - 32.0 %) 7.7 L Boundary % (Auto) (4.8 - 9.0 %) 4.7 L Eos % (Auto) (0.3 - 3.7 %) 0.6 Baso % (Auto) (0.0 - 2.0 %) 0.1 Neut # (Auto) (2.0 - 7.6 x10 3/uL) 13.99 H Lymph # (Auto) (1.0 - 3.8 x10 3/uL) 1.25 Boundary # (Auto) (0.1 - 0.8 x10 3/uL) 0.76 Eos # (Auto) (0.0 - 0.2 x10 3/uL) 0.09 Baso # (Auto) (0.0 - 0.2 x10 3/uL) 0.02 Abs Immat Gran (auto) (0.00 - 0.03 x10 3/uL) 0. 20 H Add Manual Diff NO Immature Gran % (0.0 - 2.0 %) 1.2 Nucleated RBC % (0 - 0 %) 0.0 Nucleated RBCs # (Man) (0.0 - 0.1 x10 3/uL) 0.0 0 Diagnosis, Assessment Plan Free Text DxA P Notes Free text DxA P notes: DKA DM 2, poorly controlled severe gas gangrene, right foot/necrotizing fasc itis MRSA bacteremia ERIKA severe hyponatremia likely due to combination of severe hyperglycemia and dehydration from DKA sepsis due to foot infection DM neuropathy HTN anemia, acute due to blood loss Plans: - admit to ICU - continue IV fluids aggressively - monitor lytes and AG - IV insulin drip for now until gap closes - endo eval - keep on Vancomycin and Zosyn - podiatry eval - d.w Wojciech Hernandez - likely will need debridement - MRI of foot ordered - endo eval for management of DM. - HgbA1c of 13.4 - Urology consulted for hypodensity in prostate - ? abscess, not likely. not much symptoms - lovenox for VTE - check iron panel, TSH - fall precautions - not much pain needs likely due to neuropathy 08/19/2022 - blood cultures showing MRSA - Echo ordered - continue Vancomycin/Clinda and Meropenem. Id following - podiatry planning for I D today. Surgery on ahl farias if needed to further debride his lower leg vs amputation. - WBC improving - will type and cross for blood and transfuse i f less than 7 gms - d.w at bedside - patient and is aware that he may require amputation if his tissues are non viable - remains on Insulin drip. blood sugars in the 200-300 range. AG has closed. endocrine is following. - keep in ICU 08/20/2022 - s/p extensive I D of right foot. - tissue cx showing MRSA - follow echo results - WBC remains elevated - continue IV antibiotics - MRI of pelvis pending to eval prostate lesion - MRI of foot pending to eval for osteo. - wean off insulin drip. Subq insulin and slidi ng scale. 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 will likely nee d wound vac at some point - off insulin drip - tolerating diet. d/c IV fluids - pain controlled - awaiting MRI of his foot and pelvis - fall precautions - transfer to floor 08/22/2022 - continue Vanco and Clinda IV - pulse lavage for wound care - pain control - blood sugars reasonably controlled - mobilize - fall precautions - follow hgb and transfuse as needed - awaiting floor transfer 08/23/2022 - transfuse blood for anemia. no overt blood lo ss - continue IV antibiotics - mobilize - pulse lavage to wound. ? wound vac - continue to monitor blood sugars - floor transfer - d/w 08/24/2022 - follow hgb and transfuse as needed - IV antibiotics - anesthesia consult for MRI - blood sugars ok - pulse lavage - await podiatry eval for wound care - ? wound vac - d.w at bedside Electronically Signed by Wilbert Ramires MD on at 0734 RPT #:[id number] END OF REPORT 2022-08-23 15:24:00-00:[address] [facility] ([facility]) Pharmacy Prog.Note-Vancomycin REPORT#:[id number] REPORT STATUS: Signed DATE:08/23/22 TIME: 1524 PATIENT: KARMA ROWLAND UNIT #: [id number] ROOM/BED: [place] [address] : 61 AGE: 56 SEX: M ATTEND: Mikayla Ramires MD ADM AUTHOR: Tolu Tobias h * ALL edits or amendments must be made on the [employer]/computer document * Vancomycin Vancomycin Medication Therapy Goal: AUC 400-600 mg*hr/L Indication for treatment: Empiric (now confirmed foot infection and bacter emia) Weight: Actual weight (kg): 72.575 VS and I/O: Vital Signs Date Temp Pulse Resp B/P B/P Mean Pulse Ox FiO2 08/20-08/23 36.7-38.1 90-108 11-25 89-159/50-7 6 65-104 90-99 72 hours ending at 0700 08/23 0708/22 1900 08/22 1900 08/20 07 1900 Intake 15 650.00 340.00 950.00 1290.00 1122.80 Total Output 600 1400 839 348 7582 Total Balance -585 -750.00 -160.00 300.00 1290.00 -527 .20 Intake, IV 15 50.00 100.00 300.00 1190.00 1122.8 0 Intake, 600 240 650 100 Oral Output, 600 1400 971 821 8456 Urine Patient 72.575 kg 73 kg Weight Weight Bed scale Measuremen t Method 72 Hour I O Total 08/23 0700 08/22 0700 08/21 0700 Intake Total 665.00 1290.00 2412.80 Output Total 1999 1150 1650 Balance -1335.00 140.00 762.80 Labs: Laboratory Tests: 08/23 08/22 08/21 08/21 08/20 0320 0830 2015 1315 2240 Toxicology Vancomycin Peak (30 - 40 MCG/ML) 30.7 36.0 Vancomycin Trough (10.0 - 20.0 mcg/mL) 27.2 *H Random Vancomycin (mcg/mL) 15.3 19.7 Laboratory Test : 08/23 08/23 08/22 08/21 0350 0320 0440 0428 Chemistry BUN (7 - 18 mg/dL) 45 H 37 H 37 H Creatinine (0.6 - 1.3 mg/dL) 1.5 H 1.3 1.2 Hematology WBC (4.5 - 11.0 x10 3/uL) 17.6 H 19.5 H 19.0 H Microbiology: 08/22 1730 BLOOD: Blood Culture - RES 08/22 1730 BLOOD: Blood Culture Gram Stain - RES 08/22 1721 BLOOD: Blood Culture - RES 08/22 1721 BLOOD: Blood Culture Gram Stain - RES 08/21 0428 BLOOD: Blood Culture - RES STAPH AUREUS,METHICILLIN RESIS 08/21 0428 BLOOD: Blood Culture Gram Stain - RES 08/21 0428 BLOOD: Blood Culture - RES STAPH AUREUS,METHICILLIN RESIS 08/21 0428 BLOOD: Blood Culture Gram Stain - RES Treatment plan: consult Regimen: HPI: Karma Rowland is a [age] yo male with PMH of DM and HTN who presented with AMS, DKA, and a progressively worsening right fo ot infection. Patient was started empirically on antibiotics. Pharmacy is consulted to dose vancomycin. Requesting Provider: Andrew London MD Indication: Empiric Vancomycin AUC Goal: 400-600 mcg*hr/mL Concomitant Antibiotics: 08/23 A/P: Labs and Vitals: WBC 17.6 (slight decrease) Afebrile with a Tmax of 37.4C over the past 24 hours Renal Function: BUN/SCr 45/1.5 (increase from 37/1.3) Urine Output with 2000 mL document over the pas t 24 hours Estimated CrCl 51 mL/min (using adjusted body w eight) Microbiology: 08/22 Blood Cx x2: 2/4 Coag Pos Staph (Updated ) 08/21 Blood Cx x2: 2/4 MRSA (vanc VERONICA = 1) 08/19 Abscess Cx from right foot: Many MRSA (van c VERONICA = 1) 08/18 Blood Cx x2: 2/ MRSA (vanc VERONICA = 1) 08/18 Wound Cx from right foot: Many MRSA (vanc VERONICA = 1) 08/18 Rapid Strep: Negative Imagin/27 TTE: No valvular abnormalities 08/[address]: Extensive soft tissue edema with mottled gas in subcutaneous and intramuscular compartments comp atible with gas-forming infection 08/18 Right foot X-ray: No convincing evidence f or OM Dosing and Monitoring: -Random level this AM was 15.3, appears patient has ERIKA -Random level anticipated to fall <12 tomorrow AM however repeat blood cultures from yesterday are once again positive -Considering persistent MRSA bacteremia , will go ahead and be aggressive with vancomycin dosing -Have ordered a one time dose of vancomycin 750 mg ( 10 mg/kg) -Will plan to dose by level for now Pharmacy will continue to monitor Thank you for this consult at 1525 RPT #:[id number] END OF REPORT 2022-08-23 09:47:00-00:[address] [facility] ([facility]) Cardiology Progress Note REPORT#:[id number] REPORT STATUS: Signed DATE:08/23/22 TIME: 946 PATIENT: KARMA ROWLAND UNIT #: [id number] ROOM/BED: [address] : 61 AGE: 56 SEX: M ATTEND: David Ramires MD ADM AUTHOR: Rohit Benitez CLAY MILLER * ALL edits or amendments must be made on the el ectronic/computer document * Rohit Benitez 08/23/22 0947: Subjective Chief complaint: foot infection Free Text Subj Notes Free Text Subj Notes: Patient seen and evaluated. Overall doin g well, receiving wound care today. No new cardiac complaint. Telemetry sinus rhythm Objective General VS/I O: 24 hour I O ending at 0700: 08/23 0700 08/22 1900 Intake Total 15 650.00 Output Total 600 1400 Balance -585 -750.00 Intake, IV 15 50.00 Intake, Oral 600 Output, Urine 600 1400 Vital Signs: Date Time Temp Pulse Resp B/P B/P Pulse O2 O2 F low FiO2 Mean Ox Delivery Rate 08/23 0900 100 24 149/66 95 98 04/01 0845 101 20 149/60 97 98 04/01 0830 99 22 159/72 104 98 04/01 0815 99 20 128/61 89 97 04/01 0800 99.2 04/ 0800 94 14 130/60 88 97 04/01 0745 93 13 131/62 89 97 04/01 0730 93 12 132/63 91 98 04/01 0715 100 15 142/65 93 97 04/01 0700 93 13 114/58 81 98 04/01 0600 94 13 119/58 82 97 04/01 0500 96 13 123/58 83 97 04/01 0443 96 14 96 04/01 0400 99.4 Room air 04/ 0400 97 16 118/56 81 96 04/01 0300 96 16 132/60 86 97 04/01 0200 98 19 124/56 81 97 04/01 0100 97 15 116/58 81 96 04/01 0009 98 13 98 04/01 0000 99.0 Room air 04/01 0000 97 14 126/59 85 96 08/22 2300 98 18 121/62 86 99 08/22 2200 93 14 97/53 68 95 08/22 2100 97 15 111/60 79 97 08/22 2000 99.0 Room air 08/23 1999 100 17 108/59 79 96 08/22 1900 100 20 111/58 78 97 08/22 1800 93 14 105/59 78 97 08/22 1700 97 19 108/57 78 97 08/22 1600 98.7 08/22 1600 100 18 120/59 84 97 08/22 1500 96 15 91/55 65 96 08/22 1400 101 17 115/61 82 08/22 1300 105 24 117/58 83 08/22 1200 98.6 08/22 1200 101 13 121/68 89 96 08/22 1100 101 13 125/63 87 95 08/22 1000 104 13 132/64 88 96 PATIENT WEIGHT: Weight (lb): 160 Weight (oz): 15 Weight (kg): 72.575 Medications: Active Meds + DC'd Last 24 Hrs Famotidine (PEPCID) 20 MG BID PO Lorazepam (ATIVAN) 1 MG ONCE PRN IV Sodium Chloride (SODIUM CHLORIDE) 0 ASDIR PRN IV Insulin Glargine (Lantus/Semglee) 25 UNIT BEDTIM E SUBQ Insulin Human Lispro (HUMALOG) 7 UNIT AC SUBQ Insulin Human Lispro (HUMALOG) 0 AC HS SUBQ Dextrose/Water (DEXTROSE 10% IN WATER) 125 ML DIR PRN IV (CKD) Dextrose/Water (DEXTROSE 10% IN WATER) 250 ML DIR PRN IV (CKD) Glucagon (GLUCAGON) 1 MG ASDIR PRN IM Dextrose/Water (Dextrose 10% 1,000 mL) 1,000 ML ASDIR IV Clindamycin Phosphate (CLEOCIN 900 MG/NS 50 ML) 50 ML Q8H IV Acetaminophen (TYLENOL) 650 MG Q6H PRN PRN PO Bisacodyl (DULCOLAX) 10 MG DAILY PRN PRN RECTAL Docusate Sodium (COLACE) 100 MG Q12H PRN PRN PO Hydrocodone Bitart/Acetaminophen (NORCO 5/325) 1 TAB Q4H PRN PRN PO (DC) Morphine Sulfate (morphine SULFATE) 2 MG Q4H PRN PRN IV (DC) Ondansetron HCl (ZOFRAN) 4 MG Q6H PRN PRN IV Mupirocin (BACTROBAN 2% 22 GM OINTMENT) 1 APPLIC BID NASAL (DC) Heparin Sodium (HEPARIN 5000 UNITS/ML) 5,000 UNI T Q8HR SUBQ Miscellaneous Information (VANCOMYCIN PHARMACY T O DOSE) 1 EACH ASDIR IV (CKD) Physical Exam General appearance: alert, awake, oriented Neck: no bruit/NL carotids, no JVD Cardiovascular: CV assessment: abnormal S1/S2, regular rate and rhythm, no ectopy Respiratory: clear to auscultation, no distress Lower extremity: LE assessment: edema 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 X 3 Considered stroke alert: no Wound/incision: Location: right foot Psychiatry: normal affect, normal judgment/insig ht, normal mood Results Findings/Data: Laboratory Tests 08/23 0320 1942 1633 1148 Chemistry Sodium (134 - 147 mEq/L) 133 L Potassium (3.4 - 5.0 mEq/L) 3.8 Chloride (100 - 108 mEq/L) 105 Carbon Dioxide (21 - 33 mEq/l) 19 L Anion Gap (0 - 20) 13 BUN (7 - 18 mg/dL) 45 H Creatinine (0.6 - 1.3 mg/dL) 1.5 H Glomerular Filtr Rate (90 - 95) 53.6 L Glucose (70 - 110 mg/dL) 155 H POC Glucose (70 - 110 MG/DL) 120 H 163 H 146 H 92 Calcium (8.0 - 10.5 mg/dL) 6.8 L Ionized Calcium Mitzi (1.09 - 1.30 1.06 L MMOL/L) Phosphorus (2.5 - 4.9 MG/DL) 4.7 Magnesium (1.80 - 2.40 mg/dL) 1.71 L Total Bilirubin (0.0 - 1.0 mg/dL) 0.80 AST (15 - 37 IUnit/L) 36 ALT (30 - 65 IUnit/L) 19 L Total Alk Phosphatase (20 - 125 163 H IUnit/L) Total Protein (6.4 - 8.2 g/dL) 5.8 L Albumin (3.4 - 5.0 g/dL) 1.60 L Laboratory Tests 08/23 349 Hematology WBC (4.5 - 11.0 x10 3/uL) 17.6 H RBC (4.00 - 5.60 x10 6/uL) 2.52 L Hgb (12.5 - 16.9 g/dL) 6.7 L Hct (37.5 - 50.7 %) 20.8 L MCV (81.0 - 99.0 fL) 82.5 MCH (27.0 - 33.0 pg) 26.6 L MCHC (33.0 - 37.0 g/dL) 32.2 L RDW (11.5 - 14.5 %) 15.0 H Plt Count (150 - 400 x10 3/uL) 175 MPV (7.0 - 9.0 fL) 10.3 H Add Manual Diff YES Laboratory Tests 04/01 0320 Toxicology Random Vancomycin (mcg/mL) 15.3 Laboratory Tests 08/23 032 Chemistry Magnesium (1.80 - 2.40 mg/dL) 1.71 L Diagnosis, Assessment Plan Free Text DxA P Notes Free Text DxA P Notes: Impression: 1. Preop eval/cardiac clearance 2. Infected right foot gas gangrene 3. DKA 4. Sepsis 5. Hypertension 6. Anemia Recommendation: Patient presented for evalua tion of altered mental status, weakness and elevated blood sugar. Diagnosed with DKA and seps is. 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 Known cardiac history of hypertensio n and hyperlipidemia. Denies prior history of CAD, CHF or arrhythmia. EKG abn ormal, NSR with anterior infarct. Vital signs stable. No prior cardiac wo rk-up. -Check echocardiogram -Monitor telemetry for arrhythmia -Monitor blood pressure trend -Wound care and IV antibiotic therapy -Supportive care 08/19: Patient doing better postop, blood pressur e control, currently in sinus rhythm, lower extremity artery Doppler negative for any significant PAD, continue current management from primary team an d podiatry service, continue monitor on telemetry for arrhythmia postop, supp ortive care, discussed with patient and family as well as RN, will follow. 08/21: Patient overall doing well, awake and alert today. Blood pressure well controlled. Currently in sinus rhythm to sinus t achycardia, will continue to monitor. Echocardiogram shows LVEF of 55 to 69%, no regional wall motion abnormalities, grade 1 diastolic dysfunction, an d mildly dilated LA. continue antibiotic therapy and wound care. Supportive ca re. Plan of care discussed with patient, RN and Dr. Parham. 08/22: No Significant changes from cardiac stand point. Vital signs stable. Telemetry monitoring reviewed, sinus rhythm to s inus tachycardia. We will continue monitor, sinus tachycardia likely relat ed to underlying infection. Continue wound care and antibiotic therapy. Supp ortive care. Plan of care discussed with patient, RN and Dr. Parham. 08/23: Stable cardiac status. Blood pressure and heart rate well controlled. Continue monitor telemetry. Continue wound care. Plan to transfer to floor. Supportive care. Plan of care discussed with lori hart RN and Dr. Parham. Gianni Parham 08/24/22 8875: Diagnosis, Assessment Plan Additional comments: Patient was seen and examined at bedside , agree with above assessment and plan as documented by nurse practitioner. Will follow . Electronically Signed by Rohit Benitez NP on 0 08/23/22 at 1700 at 2257 RPT #:[id number] END OF REPORT 2022-08-23 08:08:00-00:00 [facility]L [facility] Hospitalist Progress Note REPORT#:[id number] REPORT STATUS: Signed DATE:08/23/22 TIME: 807 PATIENT: KARMA ROWLAND UNIT #: [id number] ROOM/BED: [place] [address] : 61 AGE: 56 SEX: M ATTEND: Mikayla Ramires MD ADM AUTHOR: Wilbert Ramires MD * ALL edits or amendments must be made on the [employer]/computer document * Subjective Chief complaint: AMS and right foot infection. doing ok. not much pain. s/p extensive debridement. off insulin drip. toelrating diet. no pain Review of Systems All systems rev neg: except as noted Objective General VS/I O: Vital Signs: Date Time Temp Pulse Resp B/P B/P Pulse O2 O2 F low FiO2 Mean Ox Delivery Rate 08/23 0600 94 13 119/58 82 97 08/23 0500 96 13 123/58 83 97 04/ 0443 96 14 96 04/ 0400 99.4 Room air 08/23 0400 97 16 118/56 81 96 04 0300 96 16 132/60 86 97 04/ 0200 98 19 124/56 81 97 04/ 0100 97 15 116/58 81 96 04/ 0009 98 13 98 04/ 0000 99.0 Room air 04 0000 97 14 126/59 85 96 08/22 2300 98 18 121/62 86 99 08/22 2200 93 14 97/53 68 95 08/22 2100 97 15 111/60 79 97 08/22 2000 99.0 Room air 08/22 2000 100 17 108/59 79 96 08/22 1900 100 20 111/58 78 97 08/22 1800 93 14 105/59 78 97 08/22 1700 97 19 108/57 78 97 08/22 1600 98.7 08/22 1600 100 18 120/59 84 97 08/22 1500 96 15 91/55 65 96 08/22 1400 101 17 115/61 82 08/22 1300 105 24 117/58 83 08/22 1200 98.6 08/22 1200 101 13 121/68 89 96 08/22 1100 101 13 125/63 87 95 08/22 1000 104 13 132/64 88 96 08/22 0900 106 17 126/57 82 94 24 hour I O ending at 0700: 08/23 0700 08/22 1900 Intake Total 15 650.00 Output Total 600 1400 Balance -585 -750.00 Intake, IV 15 50.00 Intake, Oral 600 Output, Urine 600 1400 PATIENT WEIGHT: Weight (lb): 160 Weight (oz): 15 Weight (kg): 72.575 Medications: Active Meds + DC'd Last 24 Hrs Famotidine (PEPCID) 20 MG BID PO Lorazepam (ATIVAN) 1 MG ONCE PRN IV Sodium Chloride (SODIUM CHLORIDE) 0 ASDIR PRN IV Insulin Glargine (Lantus/Semglee) 25 UNIT BEDTIM E SUBQ Insulin Human Lispro (HUMALOG) 7 UNIT AC SUBQ Insulin Human Lispro (HUMALOG) 0 AC HS SUBQ Dextrose/Water (DEXTROSE 10% IN WATER) 125 ML DIR PRN IV (CKD) Dextrose/Water (DEXTROSE 10% IN WATER) 250 ML DIR PRN IV (CKD) Glucagon (GLUCAGON) 1 MG ASDIR PRN IM Dextrose/Water (Dextrose 10% 1,000 mL) 1,000 ML ASDIR IV Clindamycin Phosphate (CLEOCIN 900 MG/NS 50 ML) 50 ML Q8H IV Acetaminophen (TYLENOL) 650 MG Q6H PRN PRN PO Bisacodyl (DULCOLAX) 10 MG DAILY PRN PRN RECTAL Docusate Sodium (COLACE) 100 MG Q12H PRN PRN PO Hydrocodone Bitart/Acetaminophen (NORCO 5/325) 1 TAB Q4H PRN PRN PO Morphine Sulfate (morphine SULFATE) 2 MG Q4H PRN PRN IV Ondansetron HCl (ZOFRAN) 4 MG Q6H PRN PRN IV Mupirocin (BACTROBAN 2% 22 GM OINTMENT) 1 APPLIC BID NASAL (DC) Heparin Sodium (HEPARIN 5000 UNITS/ML) 5,000 UNI T Q8HR SUBQ Miscellaneous Information (VANCOMYCIN PHARMACY T O DOSE) 1 EACH ASDIR IV (CKD) Physical Exam General appearance: alert, awake, oriented Head/Eyes: normocephalic ENT: moist mucosal membranes Neck: no JVD Cardiovascular: regular rate rhythm, no heave Respiratory: aerating well, clear to auscultatio n, symmetric expansion, no distress Abdomen: non-tender, normal bowel sounds, soft, no distention Genitourinary: no bladder distention Extremities: right foot markedly swollen with violacous disoloratoin of dorsum and lateral area extending t o ankle. There were blisters with some blisters were open. 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 X 3, 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 Considered stroke alert: no Skin: no rash Psychiatry: normal affect, normal judgment/insig ht, normal mood Results Findings/Data: Laboratory Tests 08/23 08/22 08/22 08/22 0320 1942 1633 1148 Chemistry Sodium (134 - 147 mEq/L) 133 L Potassium (3.4 - 5.0 mEq/L) 3.8 Chloride (100 - 108 mEq/L) 105 Carbon Dioxide (21 - 33 mEq/l) 19 L Anion Gap (0 - 20) 13 BUN (7 - 18 mg/dL) 45 H Creatinine (0.6 - 1.3 mg/dL) 1.5 H Glomerular Filtr Rate (90 - 95) 53.6 L Glucose (70 - 110 mg/dL) 155 H POC Glucose (70 - 110 MG/DL) 163 H 146 H 92 Calcium (8.0 - 10.5 mg/dL) 6.8 L Ionized Calcium Mitzi (1.09 - 1.30 MMOL/L) 1.06 L Phosphorus (2.5 - 4.9 MG/DL) 4.7 Magnesium (1.80 - 2.40 mg/dL) 1.71 L Total Bilirubin (0.0 - 1.0 mg/dL) 0.80 AST (15 - 37 IUnit/L) 36 ALT (30 - 65 IUnit/L) 19 L Total Alk Phosphatase (20 - 125 IUnit/L) 163 H Total Protein (6.4 - 8.2 g/dL) 5.8 L Albumin (3.4 - 5.0 g/dL) 1.60 L Laboratory Tests 08/23 0350 Hematology WBC (4.5 - 11.0 x10 3/uL) 17.6 H RBC (4.00 - 5.60 x10 6/uL) 2.52 L Hgb (12.5 - 16.9 g/dL) 6.7 L Hct (37.5 - 50.7 %) 20.8 L MCV (81.0 - 99.0 fL) 82.5 MCH (27.0 - 33.0 pg) 26.6 L MCHC (33.0 - 37.0 g/dL) 32.2 L RDW (11.5 - 14.5 %) 15.0 H Plt Count (150 - 400 x10 3/uL) 175 MPV (7.0 - 9.0 fL) 10.3 H Add Manual Diff YES Laboratory Tests 08/23 08/22 0320 0830 Toxicology Random Vancomycin (mcg/mL) 15.3 19.7 Diagnosis, Assessment Plan Free Text DxA P Notes Free text DxA P notes: DKA DM 2, poorly controlled severe gas gangrene, right foot/necrotizing fasc itis MRSA bacteremia ERIKA severe hyponatremia likely due to combination of severe hyperglycemia and dehydration from DKA sepsis due to foot infection DM neuropathy HTN anemia, acute due to blood loss Plans: - admit to ICU - continue IV fluids aggressively - monitor lytes and AG - IV insulin drip for now until gap closes - endo eval - keep on Vancomycin and Zosyn - podiatry eval - d.w Wojciech Hernandez - likely will need debridement - MRI of foot ordered - endo eval for management of DM. - HgbA1c of 13.4 - Urology consulted for hypodensity in prostate - ? abscess, not likely. not much symptoms - lovenox for VTE - check iron panel, TSH - fall precautions - not much pain needs likely due to neuropathy 08/19/2022 - blood cultures showing MRSA - Echo ordered - continue Vancomycin/Clinda and Meropenem. Id following - podiatry planning for I D today. Surgery on s tandby if needed to further debride his lower leg vs amputation. - WBC improving - will type and cross for blood and transfuse i f less than 7 gms - d.w at bedside - patient and is aware that he may require amputation if his tissues are non viable - remains on Insulin drip. blood sugars in the 200-300 range. AG has closed. endocrine is following. - keep in ICU 08/20/2022 - s/p extensive I D of right foot. - tissue cx showing MRSA - follow echo results - WBC remains elevated - continue IV antibiotics - MRI of pelvis pending to eval prostate lesion - MRI of foot pending to eval for osteo. - wean off insulin drip. Subq insulin and slidi ng scale. endo following - pain controlled - will likely need wound vac and half-way IV a ntibiotic therapy - d/w at bedside - PT/OT 08/21/2022 - continue IV antibitoics - wound care with pulse lavage. will likely nee d wound vac at some point - off insulin drip - tolerating diet. d/c IV fluids - pain controlled - awaiting MRI of his foot and pelvis - fall precautions - transfer to floor 08/22/2022 - continue Vanco and Clinda IV - pulse lavage for wound care - pain control - blood sugars reasonably controlled - mobilize - fall precautions - follow hgb and transfuse as needed - awaiting floor transfer 08/23/2022 - transfuse blood for anemia. no overt blood lo ss - continue IV antibiotics - mobilize - pulse lavage to wound. ? wound vac - continue to monitor blood sugars - floor transfer - d/w Electronically Signed by Wilbert Ramires MD on at 0809 RPT #:[id number] END OF REPORT 2022-08-22 21:25:00-00:00 [facility] ([facility]) Podiatry Progress Note REPORT#:[id number] REPORT STATUS: Signed DATE:08/22/22 TIME: 2124 PATIENT: KARMA ROWLAND UNIT #: [id number] ROOM/BED: [facility]-1 : 63 AGE: 56 SEX: M ATTEND: Mikayla Ramires MD ADM AUTHOR: Liam Pedersen DPM * ALL edits or amendments must be made on the el [employer]/computer document * Subjective Chief complaint: my foot is red and swollen Patient reports: no diarrhea, no fatigue, no hea rtburn, no itching Comments: pt with little pain pt in ICU Objective General VS: Last Documented: Result Date Time O2 Delivery Room air 08/23 1999 Temp 37.2 08/23 1999 Pulse Ox 97 08/22 1800 B/P 105/59 08/22 1800 B/P Mean 78 08/22 1800 Pulse 93 08/22 1800 Resp 14 08/22 1800 O2 Flow Rate 2 08/21 0800 PATIENT WEIGHT: Weight (lb): 160 Weight (oz): 15 Weight (kg): 72.575 Medications: Active Meds + DC'd Last 24 Hrs Famotidine (PEPCID) 20 MG BID PO Lorazepam (ATIVAN) 1 MG ONCE PRN IV Sodium Chloride (SODIUM CHLORIDE) 0 ASDIR PRN IV Insulin Glargine (Lantus/Semglee) 25 UNIT BEDTIM E SUBQ Insulin Human Lispro (HUMALOG) 7 UNIT AC SUBQ Insulin Human Lispro (HUMALOG) 0 AC HS SUBQ Dextrose/Water (DEXTROSE 10% IN WATER) 125 ML DIR PRN IV (CKD) Dextrose/Water (DEXTROSE 10% IN WATER) 250 ML DIR PRN IV (CKD) Glucagon (GLUCAGON) 1 MG ASDIR PRN IM Dextrose/Water (Dextrose 10% 1,000 mL) 1,000 ML ASDIR IV Vancomycin HCl (VANCOMYCIN HCL) 1,000 MG Q12H IV (DC) Sodium Chloride (SODIUM CHLORIDE 0.9%) 250 ML Clindamycin Phosphate (CLEOCIN 900 MG/NS 50 ML) 50 ML Q8H IV Acetaminophen (TYLENOL) 650 MG Q6H PRN PRN PO Bisacodyl (DULCOLAX) 10 MG DAILY PRN PRN RECTAL Docusate Sodium (COLACE) 100 MG Q12H PRN PRN PO Hydrocodone Bitart/Acetaminophen (NORCO 5/325) 1 TAB Q4H PRN PRN PO Morphine Sulfate (morphine SULFATE) 2 MG Q4H PRN PRN IV Ondansetron HCl (ZOFRAN) 4 MG Q6H PRN PRN IV Mupirocin (BACTROBAN 2% 22 GM OINTMENT) 1 APPLIC BID NASAL (DC) Heparin Sodium (HEPARIN 5000 UNITS/ML) 5,000 UNI T Q8HR SUBQ Miscellaneous Information (VANCOMYCIN PHARMACY T O DOSE) 1 EACH ASDIR IV (CKD) I O: 24 hour I O ending at 0700: 08/22 0700 08/21 1900 Intake Total 340.00 950.00 Output Total 500 650 Balance -160.00 300.00 Intake, IV 100.00 300.00 Intake, Oral 240 650 Output, Urine 500 650 Patient 72.575 kg Weight Dietitian nutrition assessment The data set between the solid lines has been im ported from the dietitian's assessment. BMI Calculated: 25.8 Nutrition related diagnosis: Nutrition diagnosis details: Nutrition problem: Nutrition etiology: Nutrition signs and symptoms: Nutrition prescription: Dietitian name: Assessment completed: Physical Exam General appearance: alert, awake, oriented Wound/incision: Location: Right foot to right ankle. DP and PT pulses are very weak essentially nonp alpable. There is severe edema of the right foot to the right ankle, better. There is erythema of the right foot to the righ t ankle, much better. Not really any ascending lymphangitis past ther e. Crepitation is at the medial right hindfoot and the dorsal right midfoot are significantly less. There is no longer crepitation at the lateral r ight ankle. There is some bullae that are peeling medial an d lateral. Sensation is greatly decreased on the right janelle t. base of three wounds fibrotic. sero purulent drainage. bones and tendons exposed. LE vascular pulse assess: Nonpalpable R posterior tibialis, Nonpalpable R dorsalis pedis Considered stroke alert: no Results Findings/Data: Laboratory Tests: 08/22 08/22 08/22 08/22 08/22 1942 1633 1148 0830 0747 Chemistry POC Glucose (70 - 110 MG/DL) 163 H 146 H 92 76 Toxicology Random Vancomycin (mcg/mL) 19.7 08/22 0440 Chemistry Sodium (134 - 147 mEq/L) 133 L Potassium (3.4 - 5.0 mEq/L) 4.1 Chloride (100 - 108 mEq/L) 105 Carbon Dioxide (21 - 33 mEq/l) 21 Anion Gap (0 - 20) 11 BUN (7 - 18 mg/dL) 37 H Creatinine (0.6 - 1.3 mg/dL) 1.3 Glomerular Filtr Rate (90 - 95) 63.7 L Glucose (70 - 110 mg/dL) 89 Calcium (8.0 - 10.5 mg/dL) 7.2 L Ionized Calcium Mitzi (1.09 - 1.30 MMOL/L) 1.00 L Phosphorus (2.5 - 4.9 MG/DL) 3.4 Magnesium (1.80 - 2.40 mg/dL) 1.70 L Total Bilirubin (0.0 - 1.0 mg/dL) 0.80 AST (15 - 37 IUnit/L) 30 ALT (30 - 65 IUnit/L) 15 L Total Alk Phosphatase (20 - 125 IUnit/L) 171 H Total Protein (6.4 - 8.2 g/dL) 5.6 L Albumin (3.4 - 5.0 g/dL) 1.70 L Hematology WBC (4.5 - 11.0 x10 3/uL) 19.5 H RBC (4.00 - 5.60 x10 6/uL) 2.61 L Hgb (12.5 - 16.9 g/dL) 7.1 L Hct (37.5 - 50.7 %) 21.6 L MCV (81.0 - 99.0 fL) 82.8 MCH (27.0 - 33.0 pg) 27.2 MCHC (33.0 - 37.0 g/dL) 32.9 L RDW (11.5 - 14.5 %) 15.0 H Plt Count (150 - 400 x10 3/uL) 128 L MPV (7.0 - 9.0 fL) 10.8 H Neut % (Auto) (56.0 - 77.0 %) 82.1 H Lymph % (Auto) (14.0 - 32.0 %) 9.0 L Boundary % (Auto) (4.8 - 9.0 %) 4.8 Eos % (Auto) (0.3 - 3.7 %) 0.4 Baso % (Auto) (0.0 - 2.0 %) 0.1 Neut # (Auto) (2.0 - 7.6 x10 3/uL) 15.98 H Lymph # (Auto) (1.0 - 3.8 x10 3/uL) 1.76 Boundary # (Auto) (0.1 - 0.8 x10 3/uL) 0.93 H Eos # (Auto) (0.0 - 0.2 x10 3/uL) 0.08 Baso # (Auto) (0.0 - 0.2 x10 3/uL) 0.02 Abs Immat Gran (auto) (0.00 - 0.03 x10 3/uL) 0. 70 H Add Manual Diff NO Immature Gran % (0.0 - 2.0 %) 3.6 H Nucleated RBC % (0 - 0 %) 0.0 Nucleated RBCs # (Man) (0.0 - 0.1 x10 3/uL) 0.0 0 Diagnosis, Assessment Plan Free Text A P: Gas gangrene right foot and right ankle (Gas in tissues/abscess) Diabetes with peripheral neuropathy Minimal peripheral vascular disease Leukocytosis Sepsis DKA s/p surgical debridement and washout CAT scan shows gas in 3 locations X-rays right foot show no osseous change packing with Iodoform. IV antibiotics Monitor leukocytosis NIAS: minimal PVD right 08/18 wound culture: MRSA (This one is not accura te, it is of skin that was intact) 08/19 OR culture: MRSA blood cultures: MRSA Offloading boot ICU for now pulse lavage by physical therapy MRI: osteo of entire hindfoot essentially discussed with Dr. Curtis..... extensive tissue loss and continued positive blood cultures.... if doesnt improve greatly in 1-2 da ys plan will be BKA. and sister and patient aware Electronically Signed by Liam Pedersen DPM on 0 08/22/22 at 3072 RPT #:[id number] END OF REPORT 2022-08-22 15:34:00-00:00 [facility] ([facility]) Infectious Dis. Progress Note REPORT#:[id number] REPORT STATUS: Signed DATE:08/22/22 TIME: 1534 PATIENT: KARMA ROWLAND UNIT #: [id number] ROOM[address]BED[address] : 63 AGE: 56 SEX: M ATTEND: Mikayla Ramires MD ADM AUTHOR: Anthony Curtis MD * ALL edits or amendments must be made on the [employer]/computer document * Subjective Chief complaint: Follow-up on MRSA bacteremia, right lower extrem ity necrotizing soft tissue infection. HPI: Patient is awake and alert. Denies acute or new complaints currently. No major overnight events. Objective General VS/I O: Vital Signs Date Temp Pulse Resp B/P B/P Mean Pulse Ox FiO2 08/21-08/22 98.7-99.4 95-107 11- 89-140/55-70 69-97 90-96 Last Documented: Result Date Time B/P 117/58 08/22 1300 B/P Mean 83 08/22 1300 Pulse 105 08/22 1300 Resp 24 08/22 1300 Pulse Ox 96 08/22 1200 Temp 98.7 08/22 0400 O2 Delivery Nasal cannula 08/21 0800 O2 Flow Rate 2 08/21 0800 Vital Signs: Date Time Temp Pulse Resp B/P B/P Pulse O2 O2 F low FiO2 Mean Ox Delivery Rate 08/22 1300 105 24 117/58 83 08/22 1200 101 13 121/68 89 96 08/22 1100 101 13 125/63 87 95 08/22 1000 104 13 132/64 88 96 08/22 0900 106 17 126/57 82 94 08/22 0800 107 19 140/70 97 93 08/22 0700 104 17 134/68 95 90 08/22 0600 97 13 103/56 75 91 08/22 0500 104 19 127/60 87 91 08/22 0400 98.7 08/22 0400 101 15 123/61 85 94 08/22 0300 95 13 107/59 78 93 08/22 0200 96 12 100/55 72 92 08/22 0100 97 12 107/59 78 94 / 0000 99.1 08/22 0000 100 12 118/62 83 92 08/21 2300 102 13 129/63 90 93 08/21 2200 97 12 93/57 70 93 08/21 2100 97 12 100/58 74 91 08/22 1999 99.4 08/22 1999 103 15 130/64 90 92 08/21 1900 96 13 102/58 78 93 08/21 1800 97 12 95/56 71 92 08/21 1700 99 11 89/56 69 94 08/21 1600 102 13 116/55 78 95 24 hour I O ending at 0700: 08/22 0700 08/21 1900 Intake Total 340.00 950.00 Output Total 500 650 Balance -160.00 300.00 Intake, IV 100.00 300.00 Intake, Oral 240 650 Output, Urine 500 650 Patient 72.575 kg Weight PATIENT WEIGHT: Weight (lb): 160 Weight (oz): 15 Weight (kg): 72.575 Physical Exam General appearance: alert, awake, no acute distr ess Wound/incision: Location: right foot currently dressed Cardiovascular: normal heart sounds, regular rat e rhythm, no murmur Respiratory: clear to auscultation, aerating wel l, symmetric expansion Abdomen: non-tender, soft, no distention Extremities: edema, RLE pitting edema noted 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 Rowland is a 56-year-old male with history of diabetes mellitus type 2, hypertension who was admitted with altered mental status and right-sided foot infection. According to him, he noticed a blister on his right foot around 3 days prior to presentation. His foot got progr essively more swollen and erythema extended proximally to his lateral foot and ankle. Here, patient was tachycardic and had a leukoc ytosis of 26.5. CT abdomen and pelvis with contrast is concerning for possible prostate abscess. CT of lower extremity without contrast shows extensive sof t tissue edema with mottled gas in the subcutaneous and intramuscular compartments of the foot, comp atible with gas-forming infection. Patient's blood cultures have come ba ck positive for MRSA in 2 out of 2 sets. Infectious disease consultation is r equested for antimicrobial recommendations. *MRSA bacteremia *Severe sepsis due to above *Right lower extremity necrotizing fasciitis *DKA *Prostatic abscess *ERIKA *Hyponatremia *Diabetic neuropathy *Diabetes mellitus type 2 *Hypertension -Fever curve improved; afebrile last 24 hours. -Leukocytosis of 19.5 on today's CBC noted. Over all, unchanged from the day before. -Hemoglobin A1c >14%. -Initial blood cultures from 08/18/2022 positive for MRSA in 2 out of 2 sets. -Repeat blood cultures 08/21/2022 are already po sitive for MSSA in 2 out of 2 sets, suggesting persistent high-grade bacteremi a. -Wound culture also positive for Staphylococcus aureus. -TTE 08/18/2022 negative for any obvious vegetat ions. -Went to the OR 08/19/2022 per podiatry for an I D. -Seen by urology for prostat ic mass versus abscess and had a pelvic MRI earlier today, which suggests prostatic abscess. Plan: -Patient has persistent high -grade MSSA bacteremia. Source is likely right foot /right lower extremity. Prostatic abscess is lik mumtaz another source as well. -Discussed the possibility of amputation with david cavazos and family at bedside today. -Would recommend unroofing of the prostatic absc ess. -Recommend JIMENA. -Repeat blood cultures x2 again today. -Continue to repeat serial blood cultures till b acteremia clears. -Continue clindamycin x 7 days total. -Continue vancomycin. -Further recommendations to follow based upon cl inical course. -Discussed with Dr. Pedersen. CURRENT ANTIMICROBIALS: Clindamycin + vancomycin, started 08/18/2022 Day 5 Electronically Signed by Anthony Curtis MD on 07/25 06/16 at 1540 RPT #:[id number] END OF REPORT 2022-08-22 14:16:00-00:00 [facility] ([facility]) Pharmacy Prog.Note-Vancomycin REPORT#:[id number] REPORT STATUS: Signed DATE:08/22/22 TIME: 1416 PATIENT: KARMA ROWLAND UNIT #: [id number] ROOM/BED: [facility]-1 : 61 AGE: 56 SEX: M ATTEND: Mikayla Ramires MD ADM AUTHOR: Tolu Tobias h * ALL edits or amendments must be made on the el ectronic/computer document * Vancomycin Vancomycin Medication Therapy Goal: AUC 400-600 mg*hr/L Indication for treatment: Empiric (now confirmed foot infection and bacter emia) Weight: Actual weight (kg): 72.575 VS and I/O: Vital Signs Date Temp Pulse Resp B/P B/P Mean Pulse Ox FiO2 08/19-08/22 36.5-38.1 66-108 10-27 70-161/44-79 54-113 90-100 72 hours ending at 0700 08/22 0708/21 0700 1900 Intake 340.00 950.00 1290.00 1122.80 1412.10 243 7.40 Total Output 674 927 7832 Total Balance -160.00 300.00 1290.00 -527.20 1412.10 2437.40 Intake, IV 100.00 300.00 1190.00 1122.80 1412.10 1837.40 Intake, 240 650 100 600 Oral Output, 918 525 5987 Urine Patient 72.575 kg 73 kg Weight Weight Bed scale Measuremen t Method 72 Hour I O Total 08/22 0708/21 0708/20 0700 Intake Total 1290.00 2412.80 3849.50 Output Total 1150 1650 Balance 140.00 762.80 3849.50 Labs: Laboratory Tests: 08/22 08/21 08/21 08/20 0830 2015 1315 2240 Toxicology Vancomycin Peak (30 - 40 MCG/ML) 30.7 36.0 Vancomycin Trough (10.0 - 20.0 mcg/mL) 27.2 *H Random Vancomycin (mcg/mL) 19.7 Laboratory Test : 08/22 08/21 08/20 08/19 08/19 0440 0428 0554 2310 1652 Chemistry BUN (7 - 18 mg/dL) 37 H 37 H 44 H 41 H 45 H Creatinine (0.6 - 1.3 mg/dL) 1.3 1.2 1.2 1.2 1. 2 Hematology WBC (4.5 - 11.0 x10 3/uL) 19.5 H 19.0 H 22.8 H 20.3 H Microbiology: 08/22 427 BLOOD: Blood Culture - RES COAG POS STAPHYLOCOCCUS 03/30 0428 BLOOD: Blood Culture Gram Stain - RES 08/22 427 BLOOD: Blood Culture - RES COAG POS STAPHYLOCOCCUS 08/22 427 BLOOD: Blood Culture Gram Stain - RES 08/19 171 BLOOD: Blood Culture - ORD 08/19 171 BLOOD: Blood Culture - ORD 08/19 1622 URINE: Urine Culture - COMP Treatment plan: consult Regimen: HPI: Karma Rowland is a [age] yo male with PMH of DM and HTN who presented with AMS, DKA, and a progressively worsening right fo ot infection. Patient was started empirically on antibiotics. Pharmacy is consulted to dose vancomycin. Requesting Provider: Andrew London MD Indication: Empiric Vancomycin AUC Goal: 400-600 mcg*hr/mL Concomitant Antibiotics: -Clindamycin 900 mg IV q8h 08/22 A/P: Labs and Vitals: WBC 19.5 (relatively unchanged) Febrile with a Tmax of 38.0C over the past 24 h ours Renal Function: BUN/SCr 37/1.3 (relatively unchanged) Urine Output with 1150 mL document over the pas t 24 hours Estimated CrCl 59 mL/min (using adjusted body w eight) Microbiology: 08/21 Blood Cx x2: 2/4 Coag Pos Staph (updated ) 08/19 Abscess Cx from right foot: Many MRSA (van c VERONICA = 1) 08/18 Blood Cx x2: 2/4 MRSA (vanc VERONICA = 1) 08/18 Wound Cx from right foot: Many MRSA (vanc VERONICA = 1) 08/18 Rapid Strep: Negative Imagin/27 TTE: No valvular abnormalities 08/[address]: Extensive soft tissue edema with mottled gas in subcutaneous and intramuscular compartments comp atible with gas-forming infection 08/18 Right foot X-ray: No convincing evidence f or OM Dosing and Monitoring: -Patient was on a maintenance regimen of vancom ycin 1000 mg q12h -Trough collected last night was unexpectedly h igh at 27.2 mcg/mL -Ordered a repeat level this AM just to double check, level was 19.7 mcg/mL -UOP has decreased, it is possible that patient is starting to have ERIKA -Estimated half life 25 hours but likely longer with ERIKA -Have ordered a repeat level with AM labs. Pharmacy will continue to monitor Thank you for this consult at 1417 RPT #:[id number] END OF REPORT 2022-08-22 10:48:00-00:[address] [facility] ([facility]) Cardiology Progress Note REPORT#:[id number] REPORT STATUS: Signed DATE:08/22/22 TIME: 1048 PATIENT: KARMA ROWLAND UNIT #: [id number] ROOM/BED: [place] [address] : 61 AGE: 56 SEX: M ATTEND: Mikayla Ramires MD ADM AUTHOR: Rohit Benitez CLAY MILLER * ALL edits or amendments must be made on the [employer] document * Rohit Benitez 08/22/22 1048: Subjective Chief complaint: foot infection Free Text Subj Notes Free Text Subj Notes: Patient seen and evaluated. Resting in b ed. Overall doing well without any new cardiac complaint. Telemetry sinus rhythm with sinus tachycardia Objective General VS/I O: 24 hour I O ending at 0700: 08/22 0700 08/21 1900 Intake Total 340.00 950.00 Output Total 500 650 Balance -160.00 300.00 Intake, IV 100.00 300.00 Intake, Oral 240 650 Output, Urine 500 650 Patient 160 lb Weight Vital Signs: Date Time Temp Pulse Resp B/P B/P Pulse O2 O2 F low FiO2 Mean Ox Delivery Rate 08/22 0600 97 13 103/56 75 91 08/22 0500 104 19 127/60 87 91 08/22 0400 98.7 08/22 0400 101 15 123/61 85 94 08/22 0300 95 13 107/59 78 93 08/22 0200 96 12 100/55 72 92 08/22 0100 97 12 107/59 78 94 08/22 0000 99.1 08/22 0000 100 12 118/62 83 92 08/21 2300 102 13 129/63 90 93 08/21 2200 97 12 93/57 70 93 08/21 2100 97 12 100/58 74 91 08/21 2000 99.4 08/21 2000 103 15 130/64 90 92 08/21 1900 96 13 102/58 78 93 08/21 1800 97 12 95/56 71 92 08/21 1700 99 11 89/56 69 94 08/21 1600 102 13 116/55 78 95 08/21 1500 106 15 123/60 83 94 08/21 1443 103 13 121/58 80 94 08/21 1411 100 12 107/59 78 94 08/21 1309 99 11 134/71 97 93 08/21 1200 98.7 08/21 1115 97 14 97 08/21 1100 105 21 99/56 73 PATIENT WEIGHT: Weight (lb): 160 Weight (oz): 15 Weight (kg): 72.575 Medications: Active Meds + DC'd Last 24 Hrs Famotidine (PEPCID) 20 MG BID PO Lorazepam (ATIVAN) 1 MG ONCE PRN IV Sodium Chloride (SODIUM CHLORIDE) 0 ASDIR PRN IV Insulin Glargine (Lantus/Semglee) 25 UNIT BEDTIM E SUBQ Insulin Human Lispro (HUMALOG) 7 UNIT AC SUBQ Insulin Human Lispro (HUMALOG) 0 AC HS SUBQ Dextrose/Water (DEXTROSE 10% IN WATER) 125 ML DIR PRN IV (CKD) Dextrose/Water (DEXTROSE 10% IN WATER) 250 ML DIR PRN IV (CKD) Glucagon (GLUCAGON) 1 MG ASDIR PRN IM Dextrose/Water (Dextrose 10% 1,000 mL) 1,000 ML ASDIR IV Vancomycin HCl (VANCOMYCIN HCL) 1,000 MG Q12H IV (DC) Sodium Chloride (SODIUM CHLORIDE 0.9%) 250 ML Clindamycin Phosphate (CLEOCIN 900 MG/NS 50 ML) 50 ML Q8H IV Famotidine (PEPCID) 20 MG Q12HR IV (DC) Acetaminophen (TYLENOL) 650 MG Q6H PRN PRN PO Bisacodyl (DULCOLAX) 10 MG DAILY PRN PRN RECTAL Docusate Sodium (COLACE) 100 MG Q12H PRN PRN PO Hydrocodone Bitart/Acetaminophen (NORCO 5/325) 1 TAB Q4H PRN PRN PO Morphine Sulfate (morphine SULFATE) 2 MG Q4H PRN PRN IV Ondansetron HCl (ZOFRAN) 4 MG Q6H PRN PRN IV Mupirocin (BACTROBAN 2% 22 GM OINTMENT) 1 APPLIC BID NASAL Heparin Sodium (HEPARIN 5000 UNITS/ML) 5,000 UNI T Q8HR SUBQ Miscellaneous Information (VANCOMYCIN PHARMACY T O DOSE) 1 EACH ASDIR IV (CKD) Physical Exam General appearance: alert, awake, oriented Neck: no bruit/NL carotids, no JVD Cardiovascular: CV assessment: abnormal S1/S2, regular rate and rhythm, no ectopy Respiratory: clear to auscultation, no distress Lower extremity: LE assessment: edema 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 X 3 Considered stroke alert: no Wound/incision: Location: right foot Psychiatry: normal affect, normal judgment/insig ht, normal mood Results Findings/Data: Laboratory Tests 08/2247 439 2014 1622 1108 Chemistry Sodium (134 - 147 mEq/L) 133 L Potassium (3.4 - 5.0 mEq/L) 4.1 Chloride (100 - 108 mEq/L) 105 Carbon Dioxide (21 - 33 mEq/l) 21 Anion Gap (0 - 20) 11 BUN (7 - 18 mg/dL) 37 H Creatinine (0.6 - 1.3 mg/dL) 1.3 Glomerular Filtr Rate (90 - 95) 63.7 L Glucose (70 - 110 mg/dL) 89 POC Glucose (70 - 110 MG/DL) 76 112 H 104 96 Calcium (8.0 - 10.5 mg/dL) 7.2 L Ionized Calcium Mitzi (1.09 - 1.30 1.00 L MMOL/L) Phosphorus (2.5 - 4.9 MG/DL) 3.4 Magnesium (1.80 - 2.40 mg/dL) 1.70 L Total Bilirubin (0.0 - 1.0 mg/dL) 0.80 AST (15 - 37 IUnit/L) 30 ALT (30 - 65 IUnit/L) 15 L Total Alk Phosphatase (20 - 125 IUnit/L) 171 H Total Protein (6.4 - 8.2 g/dL) 5.6 L Albumin (3.4 - 5.0 g/dL) 1.70 L Laboratory Tests 08/23 439 Hematology WBC (4.5 - 11.0 x10 3/uL) 19.5 H RBC (4.00 - 5.60 x10 6/uL) 2.61 L Hgb (12.5 - 16.9 g/dL) 7.1 L Hct (37.5 - 50.7 %) 21.6 L MCV (81.0 - 99.0 fL) 82.8 MCH (27.0 - 33.0 pg) 27.2 MCHC (33.0 - 37.0 g/dL) 32.9 L RDW (11.5 - 14.5 %) 15.0 H Plt Count (150 - 400 x10 3/uL) 128 L MPV (7.0 - 9.0 fL) 10.8 H Neut % (Auto) (56.0 - 77.0 %) 82.1 H Lymph % (Auto) (14.0 - 32.0 %) 9.0 L Boundary % (Auto) (4.8 - 9.0 %) 4.8 Eos % (Auto) (0.3 - 3.7 %) 0.4 Baso % (Auto) (0.0 - 2.0 %) 0.1 Neut # (Auto) (2.0 - 7.6 x10 3/uL) 15.98 H Lymph # (Auto) (1.0 - 3.8 x10 3/uL) 1.76 Boundary # (Auto) (0.1 - 0.8 x10 3/uL) 0.93 H Eos # (Auto) (0.0 - 0.2 x10 3/uL) 0.08 Baso # (Auto) (0.0 - 0.2 x10 3/uL) 0.02 Abs Immat Gran (auto) (0.00 - 0.03 x10 3/uL) 0. 70 H Add Manual Diff NO Immature Gran % (0.0 - 2.0 %) 3.6 H Nucleated RBC % (0 - 0 %) 0.0 Nucleated RBCs # (Man) (0.0 - 0.1 x10 3/uL) 0.0 0 Laboratory Tests 08/22 1315 Toxicology Vancomycin Peak (30 - 40 MCG/ML) 30.7 Vancomycin Trough (10.0 - 20.0 mcg/mL) 27.2 *H Random Vancomycin (mcg/mL) 19.7 Laboratory Tests 08/22 0440 Chemistry Magnesium (1.80 - 2.40 mg/dL) 1.70 L Radiology data: Recent Impressions: MAGNETIC RESONANCE IMAGING - MRI PELVIS W/O CON 08/22 2115 Report Impression - Status: SIGNED Entered: 08/22/2022 0830 IMPRESSION: 1. Markedly limited examination by motion artifa ct abdominal breathing, severely lowering sensitivity and spe cificity of the study. 2. Roughly 4.7 cm area of liquefaction in the le ft seminal vesicle suspicious for abscess, inseparable from the left posterolateral prostate capsule and peripheral z one. Recommend MR follow-up after antibiotic therapy to assess for evolution. 3. Normal size prostate with otherwise preserved transitional zone and right peripheral zone signal. 4. No pelvic adenopathy or free fluid. 5. Unremarkable bladder. Impression By: [email or web address] - Cezar shipman M.D. MAGNETIC RESONANCE IMAGING - MRI LOW EXT W/O CON T RT 08/22 2115 Report Impression - Status: SIGNED Entered: 08/21/2022 1358 Impression: 1. Large areas of deep ulceration of the medial and lateral soft tissues of the hindfoot. 2. Findings compatible with osteomyelitis of the talus, calcaneus, and navicular bone. 3. Lobulated, ill-defined 3.2 x 9.7 x 1.7 cm flu id collection in the plantar musculature of the foot. 4. 1.2 x 1.9 x 0.6 cm dorsal skin blister of the forefoot. Impression By: Hola - Abel Austin M.D. Diagnosis, Assessment Plan Free Text DxA P Notes Free Text DxA P Notes: Impression: 1. Preop eval/cardiac clearance 2. Infected right foot gas gangrene 3. DKA 4. Sepsis 5. Hypertension 6. Anemia Recommendation: Patient presented for evalua tion of altered mental status, weakness and elevated blood sugar. Diagnosed with DKA and seps is. 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 Known cardiac history of hypertensio n and hyperlipidemia. Denies prior history of CAD, CHF or arrhythmia. EKG abn ormal, NSR with anterior infarct. Vital signs stable. No prior cardiac wo rk-up. -Check echocardiogram -Monitor telemetry for arrhythmia -Monitor blood pressure trend -Wound care and IV antibiotic therapy -Supportive care 08/19: Patient doing better postop, blood pressur e control, currently in sinus rhythm, lower extremity artery Doppler negative for any significant PAD, continue current management from primary team an d podiatry service, continue monitor on telemetry for arrhythmia postop, supp ortive care, discussed with patient and family as well as RN, will follow. 08/21: Patient overall doing well, awake and irish rt today. Blood pressure well controlled. Currently in sinus rhythm to sinus t achycardia, will continue to monitor. Echocardiogram shows LVEF of 55 to 69%, no regional wall motion abnormalities, grade 1 diastolic dysfunction, an d mildly dilated LA. continue antibiotic therapy and wound care. Supportive ca re. Plan of care discussed with patient, RN and Dr. Parham. 08/22: No Significant changes from cardiac stand point. Vital signs stable. Telemetry monitoring reviewed, sinus rhythm to s inus tachycardia. We will continue monitor, sinus tachycardia likely relat ed to underlying infection. Continue wound care and antibiotic therapy. Supp ortive care. Plan of care discussed with patient, RN and Dr. Parham. Gianni Parham 08/24/22 2216: Diagnosis, Assessment Plan Additional comments: Patient was seen and examined at bedside , agree with above assessment and plan as documented by nurse practitioner. Will follow . Electronically Signed by Rohit Benitez NP on 0 08/22/22 at 1623 at 2257 RPT #:[id number] END OF REPORT 2022-08-22 09:43:00-00:00 [facility] Hospitalist Progress Note REPORT#:[id number] REPORT STATUS: Signed DATE:08/22/22 TIME: 09 PATIENT: KARMA ROWLAND UNIT #: [id number] ROOM[address]BED: [address] : 61 AGE: 56 SEX: M ATTEND: Mikayla Ramires MD ADM AUTHOR: Wilbert Ramires MD * ALL edits or amendments must be made on the [employer]/computer document * Subjective Chief complaint: AMS and right foot infection. doing ok. not much pain. s/p extensive debridement. off insulin drip. toelrating diet. no pain Review of Systems All systems rev neg: except as noted Objective General VS/I O: Vital Signs: Date Time Temp Pulse Resp B/P B/P Pulse O2 O2 F low FiO2 Mean Ox Delivery Rate 08/22 0600 97 13 103/56 75 91 08/22 0500 104 19 127/60 87 91 08/22 0400 98.7 08/22 0400 101 15 123/61 85 94 08/22 0300 95 13 107/59 78 93 08/22 0200 96 12 100/55 72 92 08/22 0100 97 12 107/59 78 94 08/22 0000 99.1 08/22 0000 100 12 118/62 83 92 08/21 2300 102 13 129/63 90 93 08/21 2200 97 12 93/57 70 93 08/21 2100 97 12 100/58 74 91 08/22 1999 99.4 08/22 1999 103 15 130/64 90 92 08/21 1900 96 13 102/58 78 93 08/21 1800 97 12 95/56 71 92 08/21 1700 99 11 89/56 69 94 08/21 1600 102 13 116/55 78 95 08/21 1500 106 15 123/60 83 94 08/21 1443 103 13 121/58 80 94 08/21 1411 100 12 107/59 78 94 08/21 1309 99 11 134/71 97 93 08/21 1200 98.7 08/21 1115 97 14 97 08/21 1100 105 21 99/56 73 08/21 1000 101 15 101/57 76 99 24 hour I O ending at 0700: 08/22 0700 08/21 1900 Intake Total 340.00 950.00 Output Total 500 650 Balance -160.00 300.00 Intake, IV 100.00 300.00 Intake, Oral 240 650 Output, Urine 500 650 Patient 72.575 kg Weight PATIENT WEIGHT: Weight (lb): 160 Weight (oz): 15 Weight (kg): 72.575 Medications: Active Meds + DC'd Last 24 Hrs Famotidine (PEPCID) 20 MG BID PO Lorazepam (ATIVAN) 1 MG ONCE PRN IV Sodium Chloride (SODIUM CHLORIDE) 0 ASDIR PRN IV Insulin Glargine (Lantus/Semglee) 25 UNIT BEDTIM E SUBQ Insulin Human Lispro (HUMALOG) 7 UNIT AC SUBQ Insulin Human Lispro (HUMALOG) 0 AC HS SUBQ Dextrose/Water (DEXTROSE 10% IN WATER) 125 ML DIR PRN IV (CKD) Dextrose/Water (DEXTROSE 10% IN WATER) 250 ML DIR PRN IV (CKD) Glucagon (GLUCAGON) 1 MG ASDIR PRN IM Dextrose/Water (Dextrose 10% 1,000 mL) 1,000 ML ASDIR IV Vancomycin HCl (VANCOMYCIN HCL) 1,000 MG Q12H IV (DC) Sodium Chloride (SODIUM CHLORIDE 0.9%) 250 ML Clindamycin Phosphate (CLEOCIN 900 MG/NS 50 ML) 50 ML Q8H IV Famotidine (PEPCID) 20 MG Q12HR IV (DC) Acetaminophen (TYLENOL) 650 MG Q6H PRN PRN PO Bisacodyl (DULCOLAX) 10 MG DAILY PRN PRN RECTAL Docusate Sodium (COLACE) 100 MG Q12H PRN PRN PO Hydrocodone Bitart/Acetaminophen (NORCO 5/325) 1 TAB Q4H PRN PRN PO Morphine Sulfate (morphine SULFATE) 2 MG Q4H PRN PRN IV Ondansetron HCl (ZOFRAN) 4 MG Q6H PRN PRN IV Mupirocin (BACTROBAN 2% 22 GM OINTMENT) 1 APPLIC BID NASAL Heparin Sodium (HEPARIN 5000 UNITS/ML) 5,000 UNI T Q8HR SUBQ Miscellaneous Information (VANCOMYCIN PHARMACY T O DOSE) 1 EACH ASDIR IV (CKD) Physical Exam General appearance: alert, awake, oriented Head/Eyes: normocephalic ENT: moist mucosal membranes Neck: no JVD Cardiovascular: regular rate rhythm, no heave Respiratory: aerating well, clear to auscultatio n, symmetric expansion, no distress Abdomen: non-tender, normal bowel sounds, soft, no distention Genitourinary: no bladder distention Extremities: right foot markedly swollen with violacous disoloratoin of dorsum and lateral area extending t o ankle. There were blisters with some blisters were open. 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 X 3, 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 Considered stroke alert: no Skin: no rash Psychiatry: normal affect, normal judgment/insig ht, normal mood Results Findings/Data: Laboratory Tests 08/22 08/22 08/21 08/21 08/21 0747 0440 2015 1622 1108 Chemistry Sodium (134 - 147 mEq/L) 133 L Potassium (3.4 - 5.0 mEq/L) 4.1 Chloride (100 - 108 mEq/L) 105 Carbon Dioxide (21 - 33 mEq/l) 21 Anion Gap (0 - 20) 11 BUN (7 - 18 mg/dL) 37 H Creatinine (0.6 - 1.3 mg/dL) 1.3 Glomerular Filtr Rate (90 - 95) 63.7 L Glucose (70 - 110 mg/dL) 89 POC Glucose (70 - 110 MG/DL) 76 112 H 104 96 Calcium (8.0 - 10.5 mg/dL) 7.2 L Ionized Calcium Mitzi (1.09 - 1.30 MMOL/L) 1.00 L Phosphorus (2.5 - 4.9 MG/DL) 3.4 Magnesium (1.80 - 2.40 mg/dL) 1.70 L Total Bilirubin (0.0 - 1.0 mg/dL) 0.80 AST (15 - 37 IUnit/L) 30 ALT (30 - 65 IUnit/L) 15 L Total Alk Phosphatase (20 - 125 IUnit/L) 171 H Total Protein (6.4 - 8.2 g/dL) 5.6 L Albumin (3.4 - 5.0 g/dL) 1.70 L Laboratory Tests 08/22 0440 Hematology WBC (4.5 - 11.0 x10 3/uL) 19.5 H RBC (4.00 - 5.60 x10 6/uL) 2.61 L Hgb (12.5 - 16.9 g/dL) 7.1 L Hct (37.5 - 50.7 %) 21.6 L MCV (81.0 - 99.0 fL) 82.8 MCH (27.0 - 33.0 pg) 27.2 MCHC (33.0 - 37.0 g/dL) 32.9 L RDW (11.5 - 14.5 %) 15.0 H Plt Count (150 - 400 x10 3/uL) 128 L MPV (7.0 - 9.0 fL) 10.8 H Neut % (Auto) (56.0 - 77.0 %) 82.1 H Lymph % (Auto) (14.0 - 32.0 %) 9.0 L Boundary % (Auto) (4.8 - 9.0 %) 4.8 Eos % (Auto) (0.3 - 3.7 %) 0.4 Baso % (Auto) (0.0 - 2.0 %) 0.1 Neut # (Auto) (2.0 - 7.6 x10 3/uL) 15.98 H Lymph # (Auto) (1.0 - 3.8 x10 3/uL) 1.76 Boundary # (Auto) (0.1 - 0.8 x10 3/uL) 0.93 H Eos # (Auto) (0.0 - 0.2 x10 3/uL) 0.08 Baso # (Auto) (0.0 - 0.2 x10 3/uL) 0.02 Abs Immat Gran (auto) (0.00 - 0.03 x10 3/uL) 0. 70 H Add Manual Diff NO Immature Gran % (0.0 - 2.0 %) 3.6 H Nucleated RBC % (0 - 0 %) 0.0 Nucleated RBCs # (Man) (0.0 - 0.1 x10 3/uL) 0. 00 Laboratory Tests 08/22 1315 Toxicology Vancomycin Peak (30 - 40 MCG/ML) 30.7 Vancomycin Trough (10.0 - 20.0 mcg/mL) 27.2 *H Random Vancomycin (mcg/mL) 19.7 Diagnosis, Assessment Plan Free Text DxA P Notes Free text DxA P notes: DKA DM 2, poorly controlled severe gas gangrene, right foot/necrotizing fasc itis MRSA bacteremia ERIKA severe hyponatremia likely due to combination of severe hyperglycemia and dehydration from DKA sepsis due to foot infection DM neuropathy HTN anemia, acute due to blood loss Plans: - admit to ICU - continue IV fluids aggressively - monitor lytes and AG - IV insulin drip for now until gap closes - endo eval - keep on Vancomycin and Zosyn - podiatry eval - d.w Wojciech Hernandez - likely will need debridement - MRI of foot ordered - endo eval for management of DM. - HgbA1c of 13.4 - Urology consulted for hypodensity in prostate - ? abscess, not likely. not much symptoms - lovenox for VTE - check iron panel, TSH - fall precautions - not much pain needs likely due to neuropathy 08/19/2022 - blood cultures showing MRSA - Echo ordered - continue Vancomycin/Clinda and Meropenem. Id following - podiatry planning for I D today. Surgery on s tandby if needed to further debride his lower leg vs amputation. - WBC improving - will type and cross for blood and transfuse i f less than 7 gms - d.w at bedside - patient and is aware that he may require amputation if his tissues are non viable - remains on Insulin drip. blood sugars in the 200-300 range. AG has closed. endocrine is following. - keep in ICU 08/20/2022 - s/p extensive I D of right foot. - tissue cx showing MRSA - follow echo results - WBC remains elevated - continue IV antibiotics - MRI of pelvis pending to eval prostate lesion - MRI of foot pending to eval for osteo. - wean off insulin drip. Subq insulin and slidi ng scale. 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 will likely nee d wound vac at some point - off insulin drip - tolerating diet. d/c IV fluids - pain controlled - awaiting MRI of his foot and pelvis - fall precautions - transfer to floor 08/22/2022 - continue Vanco and Clinda IV - pulse lavage for wound care - pain control - blood sugars reasonably controlled - mobilize - fall precautions - follow hgb and transfuse as needed - awaiting floor transfer Electronically Signed by Wilbert Ramires MD on at 0610 RPT #:[id number] END OF REPORT 2022-08-21 17:45:00-00:00 [facility] Pod[facility]ry Progress Note REPORT#:[id number] REPORT STATUS: Signed DATE:08/21/22 TIME: 5 PATIENT: KARMA ROWLAND UNIT #: [id number] ROOM/BED: [facility]25-1 : 61 AGE: 56 SEX: M ATTEND: Mikayla Ramires MD ADM AUTHOR: Liam Pedersen DPM * ALL edits or amendments must be made on the el [employer]/computer document * Subjective Chief complaint: my foot is red and swollen Patient reports: no cough, no dizziness, no feve r, no itching, no nausea Objective General VS: Last Documented: Result Date Time Temp 37.1 08/21 1200 Pulse Ox 97 08/21 1115 Pulse 97 08/21 1115 Resp 14 08/21 1115 B/P 99/56 08/21 1100 B/P Mean 73 08/21 1100 O2 Delivery Nasal cannula 08/21 0800 O2 Flow Rate 2 08/21 0800 PATIENT WEIGHT: Weight (lb): 160 Weight (oz): 15 Weight (kg): 72.575 Medications: Active Meds + DC'd Last 24 Hrs Famotidine (PEPCID) 20 MG BID PO Lorazepam (ATIVAN) 1 MG ONCE PRN IV Sodium Chloride (SODIUM CHLORIDE) 0 ASDIR PRN IV Insulin Glargine (Lantus/Semglee) 25 UNIT BEDTIM E SUBQ Insulin Human Lispro (HUMALOG) 7 UNIT AC SUBQ Insulin Human Lispro (HUMALOG) 0 AC HS SUBQ Dextrose/Water (DEXTROSE 10% IN WATER) 125 ML DIR PRN IV (CKD) Dextrose/Water (DEXTROSE 10% IN WATER) 250 ML DIR PRN IV (CKD) Glucagon (GLUCAGON) 1 MG ASDIR PRN IM Sodium Chloride (SODIUM CHLORIDE 0.9%) 1,000 ML .[id number] IV (DC) Dextrose/Water (DEXTROSE 10% IN WATER) 250 ML DIR PRN IV (DC) Dextrose/Water (DEXTROSE 10% IN WATER) 250 ML DIR PRN IV (DC) Dextrose/Water (Dextrose 10% 1,000 mL) 1,000 ML ASDIR IV Vancomycin HCl (VANCOMYCIN HCL) 1,000 MG Q12H IV Sodium Chloride (SODIUM CHLORIDE 0.9%) 250 ML Dextrose/Water (DEXTROSE 10% IN WATER) 250 ML DIR PRN IV (DC) Clindamycin Phosphate (CLEOCIN 900 MG/NS 50 ML) 50 ML Q8H IV Famotidine (PEPCID) 20 MG Q12HR IV (DC) Acetaminophen (TYLENOL) 650 MG Q6H PRN PRN PO Bisacodyl (DULCOLAX) 10 MG DAILY PRN PRN RECTAL Docusate Sodium (COLACE) 100 MG Q12H PRN PRN PO Hydrocodone Bitart/Acetaminophen (NORCO 5/325) 1 TAB Q4H PRN PRN PO Morphine Sulfate (morphine SULFATE) 2 MG Q4H PRN PRN IV Ondansetron HCl (ZOFRAN) 4 MG Q6H PRN PRN IV Mupirocin (BACTROBAN 2% 22 GM OINTMENT) 1 APPLIC BID NASAL Heparin Sodium (HEPARIN 5000 UNITS/ML) 5,000 UNI T Q8HR SUBQ Dextrose/Water (DEXTROSE 10% IN WATER) 250 ML DIR PRN IV (DC) Miscellaneous Information (VANCOMYCIN PHARMACY T O DOSE) 1 EACH ASDIR IV (CKD) I O: 24 hour I O ending at 0700: 08/21 0700 08/20 1900 Intake Total 1290.00 1122.80 Output Total 1650 Balance 1290.00 -527.20 Intake, IV 1190.00 1122.80 Intake, Oral 100 Output, Urine 1650 Patient 73 kg Weight Weight Bed scale Measurement Method Dietitian nutrition assessment The data set between the solid lines has been im ported from the dietitian's assessment. BMI Calculated: 26.0 Nutrition related diagnosis: Nutrition diagnosis details: Nutrition problem: Nutrition etiology: Nutrition signs and symptoms: Nutrition prescription: Dietitian name: Assessment completed: Physical Exam General appearance: alert, awake, oriented, plea delia, mental status normal Wound/incision: Location: Right foot to right ankle. DP and PT pulses are very weak essentially nonp alpable. There is severe edema of the right foot to the right ankle, better. There is erythema of the right foot to the righ t ankle, much better. Not really any ascending lymphangitis past ther e. Crepitation is at the medial right hindfoot and the dorsal right midfoot are significantly less. There is no longer crepitation at the lateral r ight ankle. There is some bullae that are peeling medial an d lateral. Sensation is greatly decreased on the right janelle t. base of three wounds fibrotic. sero purulent drainage. bones and tendons exposed. LE vascular pulse assess: Nonpalpable R posterior tibialis, Nonpalpable R dorsalis pedis Considered stroke alert: no Results Findings/Data: Laboratory Tests: 08/21 08/21 08/21 08/21 1622 1315 1108 0801 Chemistry POC Glucose (70 - 110 MG/DL) 104 96 123 H Toxicology Vancomycin Peak (30 - 40 MCG/ML) 30.7 08/21 08/20 08/20 0428 2240 8 Chemistry Sodium (134 - 147 mEq/L) 134 Potassium (3.4 - 5.0 mEq/L) 3.5 Chloride (100 - 108 mEq/L) 106 Carbon Dioxide (21 - 33 mEq/l) 22 Anion Gap (0 - 20) 10 BUN (7 - 18 mg/dL) 37 H Creatinine (0.6 - 1.3 mg/dL) 1.2 Glomerular Filtr Rate (90 - 95) 70.1 L Glucose (70 - 110 mg/dL) 120 H POC Glucose (70 - 110 MG/DL) 123 H Calcium (8.0 - 10.5 mg/dL) 7.4 L Ionized Calcium Mitzi (1.09 - 1.30 MMOL/L) 1.02 L Phosphorus (2.5 - 4.9 MG/DL) 2.6 Magnesium (1.80 - 2.40 mg/dL) 1.65 L Total Bilirubin (0.0 - 1.0 mg/dL) 0.60 AST (15 - 37 IUnit/L) 31 ALT (30 - 65 IUnit/L) 18 L Total Alk Phosphatase (20 - 125 IUnit/L) 172 H Total Protein (6.4 - 8.2 g/dL) 5.5 L Albumin (3.4 - 5.0 g/dL) 1.90 L Hematology WBC (4.5 - 11.0 x10 3/uL) 19.0 H RBC (4.00 - 5.60 x10 6/uL) 2.78 L Hgb (12.5 - 16.9 g/dL) 7.4 L Hct (37.5 - 50.7 %) 23.0 L MCV (81.0 - 99.0 fL) 82.7 MCH (27.0 - 33.0 pg) 26.6 L MCHC (33.0 - 37.0 g/dL) 32.2 L RDW (11.5 - 14.5 %) 15.0 H Plt Count (150 - 400 x10 3/uL) 155 MPV (7.0 - 9.0 fL) 10.1 H Add Manual Diff YES Seg Neutrophils % (37 - 69 %) 79.1 H Band Neutrophils % (0.0 - 10.0 %) 11.8 H Lymphocytes % (Manual) (23 - 55 %) 3.6 L Monocytes % (Manual) (0 - 10 %) 4.6 Basophils % (Manual) (0.0 - 2.0 %) 0.9 Platelet Estimate (ADEQUATE THOUSAND) Adequate Plt Morphology Comment LARGE PLATELETS Polychromasia 3+ Anisocytosis 2+ Macrocytosis 2+ Toxicology Vancomycin Peak (30 - 40 MCG/ML) 36.0 Diagnosis, Assessment Plan Free Text A P: Gas gangrene right foot and right ankle (Gas in tissues/abscess) Diabetes with peripheral neuropathy Minimal peripheral vascular disease Leukocytosis Sepsis DKA s/p surgical debridement and washout CAT scan shows gas in 3 locations X-rays right foot show no osseous change packing with Iodoform. IV antibiotics Monitor leukocytosis Discussed with internal medicine team NIAS: minimal PVD right 08/18 wound culture: MRSA (This one is not accura te, it is of skin that was intact) 08/19 OR culture: CPS blood cultures: MRSA Offloading boot ICU for now pulse lavage by physical therapy Electronically Signed by Liam Pedersen DPM on 0 08/21/22 at 1747 RPT #:[id number] END OF REPORT 2022-08-21 16:49:00-00:[address] [facility] ([facility]) Pharmacy Prog.Note-Vancomycin REPORT#:[id number] REPORT STATUS: Signed DATE:08/21/22 TIME: 1648 PATIENT: KARMA ROWLAND UNIT #: [id number] RO[address]BED: [address] : [birth year] AGE: 56 SEX: M ATTEND: Mikayla Ramires MD ADM AUTHOR: Tolu Tobias RP h * ALL edits or amendments must be made on the [employer] document * See Addendum Vancomycin Vancomycin Medication Therapy Goal: AUC 400-600 mg*hr/L Indication for treatment: Empiric (now confirmed foot infection and bacter emia) Weight: Actual weight (kg): 72.575 VS and I/O: Vital Signs Date Temp Pulse Resp B/P B/P Mean Pulse Ox FiO2 08/18-08/21 36.5-38.8 66-109 10-30 70-161/44-79 54-113 90-100 72 hours ending at 0700 08/21 0700 08/20 1900 08/20 0708/19 1900 08/18 0700 1900 Intake 1290.00 1122.80 1412.10 2437.40 3418.00 Total Output 1650 1600 Total Balance 1290.00 -527.20 1412.10 2437.40 1818.00 Intake, IV 1190.00 1122.80 1412.10 1837.40 2818. 00 Intake, 100 600 600 Oral Output, 1650 1600 Urine Patient 73 kg Weight Weight Bed scale Measuremen t Method 72 Hour I O Total 08/21 0708/20 0708/19 0700 Intake Total 2412.80 3849.50 3418.00 Output Total 1650 1600 Balance 762.80 3849.50 1818.00 Labs: Laboratory Tests: 08/21 08/20 1315 2240 Toxicology Vancomycin Peak (30 - 40 MCG/ML) 30.7 36.0 Laboratory Test : 08/21 08/20 08/19 08/19 08/19 0428 0554 2310 1652 1115 Chemistry BUN (7 - 18 mg/dL) 37 H 44 H 41 H 45 H 39 H Creatinine (0.6 - 1.3 mg/dL) 1.2 1.2 1.2 1.2 1. 1 Hematology WBC (4.5 - 11.0 x10 3/uL) 19.0 H 22.8 H 20.3 H 08/19 08/19 08/19 08/18 0737 0445 0340 2246 Chemistry BUN (7 - 18 mg/dL) 42 H 43 H 44 H Creatinine (0.6 - 1.3 mg/dL) 1.2 1.3 1.3 Hematology WBC (4.5 - 11.0 x10 3/uL) 21.3 H Microbiology: 08/218 BLOOD: Blood Culture - RECD 08/21 0428 BLOOD: Blood Culture - RECD 08/19 1710 BLOOD: Blood Culture - ORD 08/19 171 BLOOD: Blood Culture - ORD 08/19 1622 URINE: Urine Culture - COMP 08/19 121 ABSCESS: Wound Culture - RES STAPH AUREUS,METHICILLIN RESIS 08/19 121 ABSCESS: Anaerobic Culture - RES 08/19 121 ABSCESS: Gram Stain - RES Treatment plan: consult, cont current regimen/do se Regimen: HPI: Karma Rowland is a [age] yo male with PMH of DM and HTN who presented with AMS, DKA, and a progressively worsening right fo ot infection. Patient was started empirically on antibiotics. Pharmacy is consulted to dose vancomycin. Requesting Provider: Andrew London MD Indication: Empiric Vancomycin AUC Goal: 400-600 mcg*hr/mL Concomitant Antibiotics: -Clindamycin 900 mg IV q8h 08/21 A/P: Labs and Vitals: WBC 19.0 (slight decrease from 22.8) Febrile with a Tmax of 38.1C over the past 24 h ours Renal Function: BUN/SCr 37/1.2 (relatively unchanged) Urine Output with 1650 mL document over the pas t 24 hours Estimated CrCl 64 mL/min (using adjusted body w eight) Microbiology: 08/21 Blood Cx x2: Pending 08/19 Abscess Cx from right foot: Many GPC MRSA (vanc VERONICA = 1) 08/18 Blood Cx x2: 2/4 MRSA (vanc VERONICA = 1) 08/18 Wound Cx from right foot: Many MRSA (vanc VERONICA = 1) 08/18 Rapid Strep: Negative Imagin/27 TTE: No valvular abnormalities 08/[address]: Extensive soft tissue edema with mottled gas in subcutaneous and intramuscular compartments comp atible with gas-forming infection 08/18 Right foot X-ray: No convincing evidence f or OM Dosing and Monitoring: -Patient is currently on a maintenance regimen of 1000 mg q12h -Planning for AUC monitoring, peak collected th is afternoon, trough ordered to be drawn prior to tonight s dose Pharmacy will continue to monitor Thank you for this consult at 1650 Addendum 1: 08/21/222117 by Mario Yancey [facility] AUC resulted 705.85 mcg*hr/mL supratherapeutic. Dose has been held and cancelled. No new dose ordered. Electronically Signed by Mario Yancey [facility] on at 2118 RPT #:[id number] END OF REPORT 2022-08-21 14:21:00-00:[address] [facility] ([facility]) Infectious Dis. Progress Note REPORT#:[id number] REPORT STATUS: Signed DATE:08/21/22 TIME: 1421 PATIENT: KARMA ROWLAND UNIT #: [id number] ROOM/BED: [place] [address] : 61 AGE: 56 SEX: M ATTEND: Mikayla Ramires MD ADM AUTHOR: Anthony Curtis MD * ALL edits or amendments must be made on the [employer]/computer document * Subjective Chief complaint: Follow-up on MRSA bacteremia, right lower extrem ity necrotizing soft tissue infection. HPI: Patient just went down for an MRI and re ceived Ativan prior to that. Currently sedated under influence of Ativan. Review of sys tems limited. No major overnight events. Objective General VS/I O: Vital Signs Date Temp Pulse Resp B/P B/P Mean Pulse Ox FiO2 08/20-08/21 98.0-100.5 90-108 13-25 92-144/50-7 6 65-103 92-99 Last Documented: Result Date Time Temp 98.7 08/21 1200 Pulse Ox 97 08/21 1115 Pulse 97 08/21 1115 Resp 14 08/21 1115 B/P 99/56 08/21 1100 B/P Mean 73 08/21 1100 O2 Delivery Nasal cannula 08/21 0800 O2 Flow Rate 2 08/21 0800 Vital Signs: Date Time Temp Pulse Resp B/P B/P Pulse O2 O2 F low FiO2 Mean Ox Delivery Rate 08/21 1200 98.7 03/30 1115 97 14 97 03/30 1100 105 21 99/56 73 03/30 1000 101 15 101/57 76 99 03/30 0916 100 15 111/62 76 98 03/30 0915 101 15 97 03/30 0900 101 15 131/63 89 97 03/30 0845 105 19 140/73 100 96 03/30 0830 107 17 142/68 98 95 03/30 0815 100 14 125/64 84 98 03/30 0800 100.4 03/30 0800 Nasal 2 cannula 03/30 0800 102 15 122/66 89 96 03/30 0745 102 13 138/69 97 96 03/30 0730 104 13 144/73 103 96 03/30 0715 104 15 143/71 101 96 03/30 0700 104 14 140/74 101 96 03/30 0632 101 13 96 03/30 0630 101 14 127/67 89 96 03/30 0615 99 13 130/76 98 96 03/30 0600 99 14 129/75 97 95 03/30 0552 101 15 132/71 96 95 03/30 0535 98.0 03/30 0530 100 14 125/70 93 96 03/30 0515 100 15 124/66 88 96 03/30 0500 97 14 118/63 81 98 03/30 0445 97 13 111/60 81 98 03/30 0430 94 16 96/52 69 97 03/30 0415 93 14 106/62 78 97 03/30 0400 98.5 03/30 0400 92 14 93/57 71 97 03/30 0345 90 14 93/56 71 98 03/30 0330 92 14 114/60 79 97 03/30 0315 92 16 112/62 80 98 03/30 0300 98 25 127/67 92 95 03/30 0245 98 23 128/66 91 95 03/30 0230 93 17 115/65 85 98 03/30 0215 118/64 85 03/30 0215 92 15 98 03/30 0214 92 15 98 03/30 0200 99.0 03/30 0200 92 14 108/61 79 03/30 0145 92 16 102/60 76 94 03/30 0130 91 16 95/57 73 97 03/30 0115 15 108/66 83 97 03/30 0100 92 15 102/62 78 97 03/30 0045 92 16 103/62 76 97 03/30 0030 92 16 93/59 71 97 03/30 0015 92 17 92/57 70 97 03/30 0000 100.5 03/30 0000 92 17 93/55 65 97 / 2345 92 17 97/55 69 99 03/ 2330 93 17 93/55 71 98 / 2315 100 17 108/58 77 97 / 2300 102 17 125/61 83 97 / 2245 100 18 113/58 80 97 / 2230 99 17 112/57 80 93 03/ 2215 100 18 116/50 80 93 / 2200 106 24 137/71 96 95 08/20 2145 108 23 131/67 91 92 08/20 2130 107 21 134/66 94 94 08/20 2115 104 21 140/67 97 95 08/20 2100 103 18 127/65 89 96 08/20 2045 103 18 131/63 91 93 08/20 2030 101 17 121/58 83 94 08/20 2014 101 19 126/59 85 94 08/21 1999 98.7 08/21 1999 98 16 108/60 77 94 08/20 1945 97 16 110/57 75 95 / 1930 96 15 95/51 65 95 / 1915 96 17 96/52 70 95 08/20 1900 97 15 103/55 71 97 08/20 1815 101 20 100/58 79 95 / 1800 101 22 122/62 87 94 / 1745 100 22 116/59 84 95 / 1730 98 20 99/51 69 93 / 1715 97 17 111/59 79 95 / 1700 96 14 112/59 80 95 08/20 1645 94 15 109/55 74 95 08/20 1630 97 15 110/57 79 94 / 1615 95 14 110/59 77 96 / 1600 98.0 08/20 1600 92 14 101/55 71 95 08/20 1545 92 14 104/55 72 94 / 1530 92 14 114/57 80 94 / 1515 94 15 114/62 84 95 / 1500 93 15 108/57 78 95 08/20 1445 93 14 124/59 84 94 / 1430 91 14 121/60 82 95 24 hour I O ending at 0700: 08/21 0700 08/20 1900 Intake Total 1290.00 1122.80 Output Total 1650 Balance 1290.00 -527.20 Intake, IV 1190.00 1122.80 Intake, Oral 100 Output, Urine 1650 Patient 73 kg Weight Weight Bed scale Measurement Method PATIENT WEIGHT: Weight (lb): 160 Weight (oz): 15 Weight (kg): 73.000 Physical Exam General appearance: sleeping comfortably, no acu te distress Wound/incision: Location: right foot currently dressed Cardiovascular: normal heart sounds, regular rat e rhythm, no murmur Respiratory: clear to auscultation, aerating wel l, symmetric expansion Abdomen: non-tender, soft, no distention Extremities: edema, RLE pitting edema noted 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 Rowland is a 56-year-old male with history of diabetes mellitus type 2, hypertension who was admitted with altered mental status and right-sided foot infection. According to him, he noticed a blister on his right foot around 3 days prior to presentation. His foot got progr essively more swollen and erythema extended proximally to his lateral foot and ankle. Here, patient was tachycardic and had a leukoc ytosis of 26.5. CT abdomen and pelvis with contrast is concerning for possible prostate abscess. CT of lower extremity without contrast shows extensive sof t tissue edema with mottled gas in the subcutaneous and intramuscular compartments of the foot, comp atible with gas-forming infection. Patient's blood cultures have come ba ck positive for MRSA in 2 out of 2 sets. Infectious disease consultation is re quested for antimicrobial recommendations. *MRSA bacteremia *Severe sepsis due to above *Right lower extremity necrotizing fasciitis *DKA *Prostatic mass versus abscess *ERIKA *Hyponatremia *Diabetic neuropathy *Diabetes mellitus type 2 *Hypertension -Continues to have temperature spike; Tmax 100.4 F. -Leukocytosis of 19.0 on today's CBC noted. Down trending. -Hemoglobin A1c >14%. -Initial blood cultures from 08/18/2022 positive for MRSA in 2 out of 2 sets. -Repeat blood cultures obtained earlier this a.m . and currently pending x2. -Wound culture also positive for Staphylococcus aureus. -TTE 08/18/2022 negative for any obvious vegetat ions. -Went to the OR 08/19/2022 per podiatry for an I D. -Seen by urology for prostat ic mass versus abscess. Plans for pelvic MRI noted. Currently pending. Plan: -Follow blood cultures x2 from today. -Continue to repeat serial blood cultures till b acteremia clears. -Continue clindamycin x5 to 7 days total. -Continue vancomycin. -If patient has persistent bacteremia, he will n eed a JIMENA. -Further recommendations to follow based upon cl inical course. CURRENT ANTIMICROBIALS: Clindamycin + vancomycin, started 08/18/2022 Day 4 Electronically Signed by Anthony Curtis MD on 07/25 at 1425 RPT #:[id number] END OF REPORT 2022-08-21 09:33:00-00:[address] [facility] ([facility]) Cardiology Progress Note REPORT#:[id number] REPORT STATUS: Signed DATE:08/21/22 TIME: 932 PATIENT: KARMA ROWLAND UNIT #: [id number] ROOM/BED: [address] : 61 AGE: 56 SEX: M ATTEND: Mikayla Ramires MD ADM AUTHOR: Rohit Benitez CLAY MILLER * ALL edits or amendments must be made on the [employer]/computer document * Rohit Benitez 08/21/22 0933: Subjective Chief complaint: foot infection Free Text Subj Notes Free Text Subj Notes: Patient seen and evaluated. Resting in bed, awak e and alert in no apparent distress. Telemetry sinus rhythm Objective General VS/I O: 24 hour I O ending at 0700: 08/21 0700 08/20 1900 Intake Total 1290.00 1122.80 Output Total 1650 Balance 1290.00 -527.20 Intake, IV 1190.00 1122.80 Intake, Oral 100 Output, Urine 1650 Patient 161 lb Weight Weight Bed scale Measurement Method Vital Signs: Date Time Temp Pulse Resp B/P B/P Pulse O2 O2 F low FiO2 Mean Ox Delivery Rate 08/21 0632 101 13 96 08/21 629 101 14 127/67 89 96 03/30 0615 99 13 130/76 98 96 03/30 0600 99 14 129/75 97 95 03/30 0552 101 15 132/71 96 95 03/30 0535 98.0 03/30 0530 100 14 125/70 93 96 03/30 0515 100 15 124/66 88 96 03/30 0500 97 14 118/63 81 98 03/30 0445 97 13 111/60 81 98 03/30 0430 94 16 96/52 69 97 03/30 0415 93 14 106/62 78 97 03/30 0400 98.5 03/30 0400 92 14 93/57 71 97 03/30 0345 90 14 93/56 71 98 03/30 0330 92 14 114/60 79 97 03/30 0315 92 16 112/62 80 98 03/30 0300 98 25 127/67 92 95 03/30 0245 98 23 128/66 91 95 03/30 0230 93 17 115/65 85 98 03/30 0215 118/64 85 03/30 0215 92 15 98 03/30 0214 92 15 98 03/30 0200 99.0 03/30 0200 92 14 108/61 79 03/30 0145 92 16 102/60 76 94 03/30 0130 91 16 95/57 73 97 03/30 0115 15 108/66 83 97 03/30 0100 92 15 102/62 78 97 03/30 0045 92 16 103/62 76 97 03/30 0030 92 16 93/59 71 97 03/30 0015 92 17 92/57 70 97 03/30 0000 100.5 03/30 0000 92 17 93/55 65 97 03/29 2345 92 17 97/55 69 99 03/29 2330 93 17 93/55 71 98 03/29 2315 100 17 108/58 77 97 03/29 2300 102 17 125/61 83 97 03/29 2245 100 18 113/58 80 97 03/29 2230 99 17 112/57 80 93 03/29 2215 100 18 116/50 80 93 03/29 2200 106 24 137/71 96 95 03/29 2145 108 23 131/67 91 92 03/29 2130 107 21 134/66 94 94 03/29 2115 104 21 140/67 97 95 03/29 2100 103 18 127/65 89 96 03/29 2045 103 18 131/63 91 93 03/29 2030 101 17 121/58 83 94 08/20 2014 101 19 126/59 85 94 08/21 1999 98.7 08/21 1999 98 16 108/60 77 94 / 1945 97 16 110/57 75 95 / 1930 96 15 95/51 65 95 / 1915 96 17 96/52 70 95 / 1900 97 15 103/55 71 97 03/ 1815 101 20 100/58 79 95 /29 1800 101 22 122/62 87 94 / 1745 100 22 116/59 84 95 / 1730 98 20 99/51 69 93 / 1715 97 17 111/59 79 95 / 1700 96 14 112/59 80 95 / 1645 94 15 109/55 74 95 / 1630 97 15 110/57 79 94 / 1615 95 14 110/59 77 96 / 1600 98.0 08/20 1600 92 14 101/55 71 95 / 1545 92 14 104/55 72 94 / 1530 92 14 114/57 80 94 / 1515 94 15 114/62 84 95 / 1500 93 15 108/57 78 95 / 1445 93 14 124/59 84 94 / 1430 91 14 121/60 82 95 / 1415 92 13 116/58 78 95 / 1400 91 13 118/59 80 95 / 1345 90 14 124/60 81 95 08/20 1330 88 13 110/58 78 96 / 1315 88 15 113/56 79 95 / 1300 88 14 106/55 77 93 / 1245 95 23 132/64 92 97 / 1230 100 24 134/66 95 93 / 1215 100 21 152/78 108 95 08/20 1200 98.0 08/20 1200 94 19 145/74 102 96 / 1145 94 21 138/74 101 96 03/ 1130 93 19 153/77 108 96 03/29 1115 93 19 159/77 110 96 03/ 1100 88 19 149/79 106 96 03/ 1045 86 17 130/71 95 97 / 1030 86 20 143/73 101 98 / 1015 91 23 161/79 113 97 03/29 1000 86 18 139/73 100 97 08/20 0945 85 21 152/73 105 97 PATIENT WEIGHT: Weight (lb): 160 Weight (oz): 15 Weight (kg): 73.000 Medications: Active Meds + DC'd Last 24 Hrs Lorazepam (ATIVAN) 1 MG ONCE PRN IV Sodium Chloride (SODIUM CHLORIDE) 0 ASDIR PRN IV Insulin Glargine (Lantus/Semglee) 25 UNIT BEDTIM E SUBQ Calcium Gluconate/Sodium Chloride (Calcium Gluco denny 1 GM/NS 50 mL) 50 ML ONCE ONE IV (DC) Insulin Human Lispro (HUMALOG) 7 UNIT AC SUBQ Insulin Human Lispro (HUMALOG) 0 AC HS SUBQ Dextrose/Water (DEXTROSE 10% IN WATER) 125 ML DIR PRN IV (CKD) Dextrose/Water (DEXTROSE 10% IN WATER) 250 ML DIR PRN IV (CKD) Glucagon (GLUCAGON) 1 MG ASDIR PRN IM Insulin Human Lispro (HUMALOG) 0 AC HS SUBQ (DC) Insulin Glargine (Lantus/Semglee) 10 UNIT NOW ON E SUBQ (DC) Insulin Glargine (Lantus/Semglee) 15 UNIT BEDTIM E SUBQ (DC) Norepinephrine Bitartrate (NOREPINEPHRINE 8 MG/N S 250 ML) 250 ML TITRATE IV (DC) Albumin Human (ALBUMINAR 25%) 100 ML Q6H IV (DC) Sodium Chloride (SODIUM CHLORIDE 0.9%) 1,000 ML .[id number] IV (DC) Dextrose/Water (DEXTROSE 10% IN WATER) 250 ML DIR PRN IV (DC) Insulin Human Regular (HumuLIN R) 100 UNIT ASDIR IV (DC) Sodium Chloride (SODIUM CHLORIDE 0.9%) 99 ML Dextrose/Water (DEXTROSE 10% IN WATER) 250 ML DIR PRN IV (DC) Dextrose/Water (Dextrose 10% 1,000 mL) 1,000 ML ASDIR IV Insulin Human Regular (HumuLIN R) 100 UNIT ASDIR IV (DC) Sodium Chloride (SODIUM CHLORIDE 0.9%) 99 ML Vancomycin HCl (VANCOMYCIN HCL) 1,000 MG Q12H IV Sodium Chloride (SODIUM CHLORIDE 0.9%) 250 ML Meropenem (MEROPENEM) 500 MG Q6H IV (DC) Sterile Water (WATER FOR INJECTION) 10 ML Dextrose/Water (DEXTROSE 10% IN WATER) 250 ML DIR PRN IV (DC) Clindamycin Phosphate (CLEOCIN 900 MG/NS 50 ML) 50 ML Q8H IV Famotidine (PEPCID) 20 MG Q12HR IV Acetaminophen (TYLENOL) 650 MG Q6H PRN PRN PO Bisacodyl (DULCOLAX) 10 MG DAILY PRN PRN RECTAL Docusate Sodium (COLACE) 100 MG Q12H PRN PRN PO Hydrocodone Bitart/Acetaminophen (NORCO 5/325) 1 TAB Q4H PRN PRN PO Morphine Sulfate (morphine SULFATE) 2 MG Q4H PRN PRN IV Ondansetron HCl (ZOFRAN) 4 MG Q6H PRN PRN IV Mupirocin (BACTROBAN 2% 22 GM OINTMENT) 1 APPLIC BID NASAL Heparin Sodium (HEPARIN 5000 UNITS/ML) 5,000 UNI T Q8HR SUBQ Dextrose/Water (DEXTROSE 10% IN WATER) 250 ML DIR PRN IV (DC) Magnesium Sulfate (MAGNESIUM SULFATE 2GM/SWFI 50 ML) 50 ML ASDIR PRN IV ( DC) Magnesium Sulfate (MAGNESIUM SULFATE 4GM/SWFI 10 0ML) 100 ML ASDIR PRN IV (DC) Miscellaneous Information (VANCOMYCIN PHARMACY T O DOSE) 1 EACH ASDIR IV (CKD) Potassium Chloride (POTASSIUM CHLORIDE 20MEQ TAB .ER) 20 MEQ ASDIR PRN PO (DC) Potassium Chloride (POTASSIUM CHLORIDE 20MEQ TAB .ER) 40 MEQ ASDIR PRN PO (DC) Potassium Chloride (POTASSIUM CHLORIDE 20MEQ TAB .ER) 60 MEQ ASDIR PRN PO (DC) Potassium Chloride (KCL 20MEQ/SWFI 100ML) 100 ML ASDIR PRN IV (DC) Potassium Phosphate (POTASSIUM PHOSPHATE) 15 MM ASDIR PRN IV (DC) Sodium Chloride (SODIUM CHLORIDE 0.9%) 250 ML Physical Exam General appearance: alert, awake, oriented Neck: no bruit/NL carotids, no JVD Cardiovascular: CV assessment: abnormal S1/S2, regular rate an d rhythm, no ectopy Respiratory: clear to auscultation, no distress Lower extremity: LE assessment: edema 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 X 3 Considered stroke alert: no Wound/incision: Location: right foot Psychiatry: normal affect, normal judgment/insig ht, normal mood Results Findings/Data: Laboratory Tests 08/21 08/21 08/20 08/20 08/20 0801 [id number] 1636 1107 Chemistry Sodium (134 - 147 mEq/L) 134 Potassium (3.4 - 5.0 mEq/L) 3.5 Chloride (100 - 108 mEq/L) 106 Carbon Dioxide (21 - 33 mEq/l) 22 Anion Gap (0 - 20) 10 BUN (7 - 18 mg/dL) 37 H Creatinine (0.6 - 1.3 mg/dL) 1.2 Glomerular Filtr Rate (90 - 95) 70.1 L Glucose (70 - 110 mg/dL) 120 H POC Glucose (70 - 110 MG/DL) 123 H 123 H 201 H 173 H Calcium (8.0 - 10.5 mg/dL) 7.4 L Ionized Calcium Mitzi (1.09 - 1.30 MMOL/L) 1.02 L Phosphorus (2.5 - 4.9 MG/DL) 2.6 Magnesium (1.80 - 2.40 mg/dL) 1.65 L Total Bilirubin (0.0 - 1.0 mg/dL) 0.60 AST (15 - 37 IUnit/L) 31 ALT (30 - 65 IUnit/L) 18 L Total Alk Phosphatase (20 - 125 IUnit/L) 172 H Total Protein (6.4 - 8.2 g/dL) 5.5 L Albumin (3.4 - 5.0 g/dL) 1.90 L Laboratory Tests 08/22 427 Hematology WBC (4.5 - 11.0 x10 3/uL) 19.0 H RBC (4.00 - 5.60 x10 6/uL) 2.78 L Hgb (12.5 - 16.9 g/dL) 7.4 L Hct (37.5 - 50.7 %) 23.0 L MCV (81.0 - 99.0 fL) 82.7 MCH (27.0 - 33.0 pg) 26.6 L MCHC (33.0 - 37.0 g/dL) 32.2 L RDW (11.5 - 14.5 %) 15.0 H Plt Count (150 - 400 x10 3/uL) 155 MPV (7.0 - 9.0 fL) 10.1 H Add Manual Diff YES Seg Neutrophils % (37 - 69 %) 79.1 H Band Neutrophils % (0.0 - 10.0 %) 11.8 H Lymphocytes % (Manual) (23 - 55 %) 3.6 L Monocytes % (Manual) (0 - 10 %) 4.6 Basophils % (Manual) (0.0 - 2.0 %) 0.9 Platelet Estimate (ADEQUATE THOUSAND) Adequate Plt Morphology Comment LARGE PLATELETS Polychromasia 3+ Anisocytosis 2+ Macrocytosis 2+ Laboratory Tests 08/20 2240 Toxicology Vancomycin Peak (30 - 40 MCG/ML) 36.0 Laboratory Tests 08/21 0428 Chemistry Magnesium (1.80 - 2.40 mg/dL) 1.65 L Diagnosis, Assessment Plan Free Text DxA P Notes Free Text DxA P Notes: Impression: 1. Preop eval/cardiac clearance 2. Infected right foot gas gangrene 3. DKA 4. Sepsis 5. Hypertension 6. Anemia Recommendation: Patient presented for evalua tion of altered mental status, weakness and elevated blood sugar. Diagnosed with DKA and seps is. 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 Known cardiac history of hypertensio n and hyperlipidemia. Denies prior history of CAD, CHF or arrhythmia. EKG abn ormal, NSR with anterior infarct. Vital signs stable. No prior cardiac wo rk-up. -Check echocardiogram -Monitor telemetry for arrhythmia -Monitor blood pressure trend -Wound care and IV antibiotic therapy -Supportive care 08/19: Patient doing better postop, blood pressur e control, currently in sinus rhythm, lower extremity artery Doppler negative for any significant PAD, continue current management from primary team an d podiatry service, continue monitor on telemetry for arrhythmia postop, supp ortive care, discussed with patient and family as well as RN, will follow. 08/21: Patient overall doing well, awake and irish rt today. Blood pressure well controlled. Currently in sinus rhythm to sinus t achycardia, will continue to monitor. Echocardiogram shows LVEF of 55 to 69%, no regional wall motion abnormalities, grade 1 diastolic dysfunction, an d mildly dilated LA. continue antibiotic therapy and wound care. Supportive ca re. Plan of care discussed with patient, RN and Dr. Parham. Gianni Parham 08/24/22 9495: Diagnosis, Assessment Plan Additional comments: Patient was seen and examined at bedside , agree with above assessment and plan as documented by nurse practitioner. Will follow . Electronically Signed by Rohit Benitez NP on 0 08/21/22 at 7306 at 4907 RPT #:[id number] END OF REPORT 2022-08-21 08:31:00-00:00 [facility]L [facility] Hospitalist Progress Note REPORT#:[id number] REPORT STATUS: Signed DATE:08/21/22 TIME: 830 PATIENT: KARMA ROWLAND UNIT #: [id number] ROOM/BED: [place] [id number] : 61 AGE: 56 SEX: M ATTEND: Mikayla Ramires MD ADM AUTHOR: Wilbert Ramires MD * ALL edits or amendments must be made on the [employer]/computer document * Subjective Chief complaint: AMS and right foot infection. doing ok. not much pain. s/p extensive debridement. off insulin drip. toelrating diet. no pain Review of Systems All systems rev neg: except as noted Objective General VS/I O: Vital Signs: Date Time Temp Pulse Resp B/P B/P Pulse O2 O2 F low FiO2 Mean Ox Delivery Rate 08/21 0632 101 13 96 08/21 0630 101 14 127/67 89 96 08/21 0615 99 13 130/76 98 96 03/30 0600 99 14 129/75 97 95 08/21 0552 101 15 132/71 96 95 08/21 0535 98.0 08/21 0530 100 14 125/70 93 96 /30 0515 100 15 124/66 88 96 /30 0500 97 14 118/63 81 98 03/30 0445 97 13 111/60 81 98 03/30 0430 94 16 96/52 69 97 03/30 0415 93 14 106/62 78 97 03/30 0400 98.5 03/30 0400 92 14 93/57 71 97 03/30 0345 90 14 93/56 71 98 03/30 0330 92 14 114/60 79 97 03/30 0315 92 16 112/62 80 98 03/30 0300 98 25 127/67 92 95 03/30 0245 98 23 128/66 91 95 03/30 0230 93 17 115/65 85 98 03/30 0215 118/64 85 03/30 0215 92 15 98 03/30 0214 92 15 98 03/30 0200 99.0 03/30 0200 92 14 108/61 79 03/30 0145 92 16 102/60 76 94 03/30 0130 91 16 95/57 73 97 03/30 0115 15 108/66 83 97 03/30 0100 92 15 102/62 78 97 03/30 0045 92 16 103/62 76 97 03/30 0030 92 16 93/59 71 97 03/30 0015 92 17 92/57 70 97 03/30 0000 100.5 03/30 0000 92 17 93/55 65 97 03/29 2345 92 17 97/55 69 99 03/29 2330 93 17 93/55 71 98 03/29 2315 100 17 108/58 77 97 03/29 2300 102 17 125/61 83 97 03/29 2245 100 18 113/58 80 97 03/29 2230 99 17 112/57 80 93 03/29 2215 100 18 116/50 80 93 03/29 2200 106 24 137/71 96 95 03/29 2145 108 23 131/67 91 92 03/29 2130 107 21 134/66 94 94 03/29 2115 104 21 140/67 97 95 03/29 2100 103 18 127/65 89 96 03/29 2045 103 18 131/63 91 93 /29 2030 101 17 121/58 83 94 08/20 2014 101 19 126/59 85 94 /1999 98.7 08/21 1999 98 16 108/60 77 94 03/29 1945 97 16 110/57 75 95 03/29 1930 96 15 95/51 65 95 03/29 1915 96 17 96/52 70 95 03/29 1900 97 15 103/55 71 97 03/29 1815 101 20 100/58 79 95 03/29 1800 101 22 122/62 87 94 03/29 1745 100 22 116/59 84 95 03/29 1730 98 20 99/51 69 93 03/29 1715 97 17 111/59 79 95 03/29 1700 96 14 112/59 80 95 03/29 1645 94 15 109/55 74 95 03/29 1630 97 15 110/57 79 94 03/29 1615 95 14 110/59 77 96 08/20 1600 98.0 08/20 1600 92 14 101/55 71 95 08/20 1545 92 14 104/55 72 94 08/20 1530 92 14 114/57 80 94 08/20 1515 94 15 114/62 84 95 08/20 1500 93 15 108/57 78 95 08/20 1445 93 14 124/59 84 94 08/20 1430 91 14 121/60 82 95 08/20 1415 92 13 116/58 78 95 08/20 1400 91 13 118/59 80 95 08/20 1345 90 14 124/60 81 95 08/20 1330 88 13 110/58 78 96 08/20 1315 88 15 113/56 79 95 08/20 1300 88 14 106/55 77 93 08/20 1245 95 23 132/64 92 97 08/20 1230 100 24 134/66 95 93 08/20 1215 100 21 152/78 108 95 08/20 1200 98.0 08/20 1200 94 19 145/74 102 96 08/20 1145 94 21 138/74 101 96 08/20 1130 93 19 153/77 108 96 08/20 1115 93 19 159/77 110 96 08/20 1100 88 19 149/79 106 96 08/20 1045 86 17 130/71 95 97 08/20 1030 86 20 143/73 101 98 08/20 1015 91 23 161/79 113 97 08/20 1000 86 18 139/73 100 97 08/20 0945 85 21 152/73 105 97 08/20 0930 87 23 126/69 93 96 08/20 0915 81 15 122/68 90 97 08/20 0900 80 13 126/70 93 99 08/20 0845 80 12 121/67 86 96 24 hour I O ending at 0700: 08/21 0700 08/20 1900 Intake Total 1290.00 1122.80 Output Total 1650 Balance 1290.00 -527.20 Intake, IV 1190.00 1122.80 Intake, Oral 100 Output, Urine 1650 Patient 73 kg Weight Weight Bed scale Measurement Method PATIENT WEIGHT: Weight (lb): 160 Weight (oz): 15 Weight (kg): 73.000 Medications: Active Meds + DC'd Last 24 Hrs Insulin Glargine (Lantus/Semglee) 25 UNIT BEDTIM E SUBQ Calcium Gluconate/Sodium Chloride (Calcium Gluco denny 1 GM/NS 50 mL) 50 ML ONCE ONE IV (DC) Insulin Human Lispro (HUMALOG) 7 UNIT AC SUBQ Insulin Human Lispro (HUMALOG) 0 AC HS SUBQ Dextrose/Water (DEXTROSE 10% IN WATER) 125 ML DIR PRN IV (CKD) Dextrose/Water (DEXTROSE 10% IN WATER) 250 ML DIR PRN IV (CKD) Glucagon (GLUCAGON) 1 MG ASDIR PRN IM Insulin Human Lispro (HUMALOG) 0 AC HS SUBQ (DC) Insulin Glargine (Lantus/Semglee) 10 UNIT NOW ON E SUBQ (DC) Insulin Glargine (Lantus/Semglee) 15 UNIT BEDTIM E SUBQ (DC) Norepinephrine Bitartrate (NOREPINEPHRINE 8 MG/N S 250 ML) 250 ML TITRATE IV (DC) Albumin Human (ALBUMINAR 25%) 100 ML Q6H IV (DC) Sodium Chloride (SODIUM CHLORIDE 0.9%) 1,000 ML .[id number] IV (DC) Dextrose/Water (DEXTROSE 10% IN WATER) 250 ML DIR PRN IV (CKD) Insulin Human Regular (HumuLIN R) 100 UNIT ASDIR IV (DC) Sodium Chloride (SODIUM CHLORIDE 0.9%) 99 ML Dextrose/Water (DEXTROSE 10% IN WATER) 250 ML DIR PRN IV (CKD) Dextrose/Water (Dextrose 10% 1,000 mL) 1,000 ML ASDIR IV Insulin Human Regular (HumuLIN R) 100 UNIT ASDIR IV (DC) Sodium Chloride (SODIUM CHLORIDE 0.9%) 99 ML Vancomycin HCl (VANCOMYCIN HCL) 1,000 MG Q12H IV Sodium Chloride (SODIUM CHLORIDE 0.9%) 250 ML Meropenem (MEROPENEM) 500 MG Q6H IV (DC) Sterile Water (WATER FOR INJECTION) 10 ML Dextrose/Water (DEXTROSE 10% IN WATER) 250 ML DIR PRN IV (CKD) Clindamycin Phosphate (CLEOCIN 900 MG/NS 50 ML) 50 ML Q8H IV Famotidine (PEPCID) 20 MG Q12HR IV Acetaminophen (TYLENOL) 650 MG Q6H PRN PRN PO Bisacodyl (DULCOLAX) 10 MG DAILY PRN PRN RECTAL Docusate Sodium (COLACE) 100 MG Q12H PRN PRN PO Hydrocodone Bitart/Acetaminophen (NORCO 5/325) 1 TAB Q4H PRN PRN PO Morphine Sulfate (morphine SULFATE) 2 MG Q4H PRN PRN IV Ondansetron HCl (ZOFRAN) 4 MG Q6H PRN PRN IV Mupirocin (BACTROBAN 2% 22 GM OINTMENT) 1 APPLIC BID NASAL Heparin Sodium (HEPARIN 5000 UNITS/ML) 5,000 UNI T Q8HR SUBQ Dextrose/Water (DEXTROSE 10% IN WATER) 250 ML DIR PRN IV (CKD) Magnesium Sulfate (MAGNESIUM SULFATE 2GM/SWFI 50 ML) 50 ML ASDIR PRN IV ( DC) Magnesium Sulfate (MAGNESIUM SULFATE 4GM/SWFI 10 0ML) 100 ML ASDIR PRN IV (DC) Miscellaneous Information (VANCOMYCIN PHARMACY T O DOSE) 1 EACH ASDIR IV (CKD) Potassium Chloride (POTASSIUM CHLORIDE 20MEQ TAB .ER) 20 MEQ ASDIR PRN PO (DC) Potassium Chloride (POTASSIUM CHLORIDE 20MEQ TAB .ER) 40 MEQ ASDIR PRN PO (DC) Potassium Chloride (POTASSIUM CHLORIDE 20MEQ TAB .ER) 60 MEQ ASDIR PRN PO (DC) Potassium Chloride (KCL 20MEQ/SWFI 100ML) 100 ML ASDIR PRN IV (DC) Potassium Phosphate (POTASSIUM PHOSPHATE) 15 MM ASDIR PRN IV (DC) Sodium Chloride (SODIUM CHLORIDE 0.9%) 250 ML Physical Exam General appearance: alert, awake, oriented Head/Eyes: normocephalic ENT: moist mucosal membranes Neck: no JVD Cardiovascular: regular rate rhythm, no heave Respiratory: aerating well, clear to auscultatio n, symmetric expansion, no distress Abdomen: non-tender, normal bowel sounds, soft, no distention Genitourinary: no bladder distention Extremities: right foot markedly swollen with violacous disoloratoin of dorsum and lateral area extending t o ankle. There were blisters with some blisters were open. 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 X 3, 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 Considered stroke alert: no Skin: no rash Psychiatry: normal affect, normal judgment/insig ht, normal mood Results Findings/Data: Laboratory Tests 08/21 08/21 08/20 08/20 08/20 0801 0428 2028 1636 1107 Chemistry Sodium (134 - 147 mEq/L) 134 Potassium (3.4 - 5.0 mEq/L) 3.5 Chloride (100 - 108 mEq/L) 106 Carbon Dioxide (21 - 33 mEq/l) 22 Anion Gap (0 - 20) 10 BUN (7 - 18 mg/dL) 37 H Creatinine (0.6 - 1.3 mg/dL) 1.2 Glomerular Filtr Rate (90 - 95) 70.1 L Glucose (70 - 110 mg/dL) 120 H POC Glucose (70 - 110 MG/DL) 123 H 123 H 201 H 173 H Calcium (8.0 - 10.5 mg/dL) 7.4 L Ionized Calcium Mitzi (1.09 - 1.30 MMOL/L) 1.02 L Phosphorus (2.5 - 4.9 MG/DL) 2.6 Magnesium (1.80 - 2.40 mg/dL) 1.65 L Total Bilirubin (0.0 - 1.0 mg/dL) 0.60 AST (15 - 37 IUnit/L) 31 ALT (30 - 65 IUnit/L) 18 L Total Alk Phosphatase (20 - 125 IUnit/L) 172 H Total Protein (6.4 - 8.2 g/dL) 5.5 L Albumin (3.4 - 5.0 g/dL) 1.90 L Laboratory Tests 08/21 0428 Hematology WBC (4.5 - 11.0 x10 3/uL) 19.0 H RBC (4.00 - 5.60 x10 6/uL) 2.78 L Hgb (12.5 - 16.9 g/dL) 7.4 L Hct (37.5 - 50.7 %) 23.0 L MCV (81.0 - 99.0 fL) 82.7 MCH (27.0 - 33.0 pg) 26.6 L MCHC (33.0 - 37.0 g/dL) 32.2 L RDW (11.5 - 14.5 %) 15.0 H Plt Count (150 - 400 x10 3/uL) 155 MPV (7.0 - 9.0 fL) 10.1 H Add Manual Diff YES Seg Neutrophils % (37 - 69 %) 79.1 H Band Neutrophils % (0.0 - 10.0 %) 11.8 H Lymphocytes % (Manual) (23 - 55 %) 3.6 L Monocytes % (Manual) (0 - 10 %) 4.6 Basophils % (Manual) (0.0 - 2.0 %) 0.9 Platelet Estimate (ADEQUATE THOUSAND) Adequate Plt Morphology Comment LARGE PLATELETS Polychromasia 3+ Anisocytosis 2+ Macrocytosis 2+ Laboratory Tests 08/200 Toxicology Vancomycin Peak (30 - 40 MCG/ML) 36.0 Diagnosis, Assessment Plan Free Text DxA P Notes Free text DxA P notes: DKA DM 2, poorly controlled severe gas gangrene, right foot/necrotizing fasc itis MRSA bacteremia ERIKA severe hyponatremia likely due to combination of severe hyperglycemia and dehydration from DKA sepsis due to foot infection DM neuropathy HTN anemia, acute due to blood loss Plans: - admit to ICU - continue IV fluids aggressively - monitor lytes and AG - IV insulin drip for now until gap closes - endo eval - keep on Vancomycin and Zosyn - podiatry eval - d.w Wojciech Hernandez - likely will need debridement - MRI of foot ordered - endo eval for management of DM. - HgbA1c of 13.4 - Urology consulted for hypodensity in prostate - ? abscess, not likely. not much symptoms - lovenox for VTE - check iron panel, TSH - fall precautions - not much pain needs likely due to neuropathy 08/19/2022 - blood cultures showing MRSA - Echo ordered - continue Vancomycin/Clinda and Meropenem. Id following - podiatry planning for I D today. Surgery on s dinora if needed to further debride his lower leg vs amputation. - WBC improving - will type and cross for blood and transfuse i f less than 7 gms - d.w at bedside - patient and is aware that he may require amputation if his tissues are non viable - remains on Insulin drip. blood sugars in the 200-300 range. AG has closed. endocrine is following. - keep in ICU 08/20/2022 - s/p extensive I D of right foot. - tissue cx showing MRSA - follow echo results - WBC remains elevated - continue IV antibiotics - MRI of pelvis pending to eval prostate lesion - MRI of foot pending to eval for osteo. - wean off insulin drip. Subq insulin and slidi ng scale. endo following - pain controlled - will likely need wound vac and half-way IV a ntibiotic therapy - d/w at bedside - PT/OT 08/21/2022 - continue IV antibitoics - wound care with pulse lavage. will likely nee d wound vac at some point - off insulin drip - tolerating diet. d/c IV fluids - pain controlled - awaiting MRI of his foot and pelvis - fall precautions - transfer to floor Electronically Signed by Wilbert Ramires MD on at 0833 RPT #:[id number] END OF REPORT 2022-08-20 21:55:00-00:[address] [facility] ([facility]) Cardiology Progress Note REPORT#:[id number] REPORT STATUS: Signed DATE:08/20/22 TIME: 2154 PATIENT: KARMA ROWLAND UNIT #: [id number] ROOM/BED: [place] [address] : 61 AGE: 56 SEX: M ATTEND: Mikayla Ramires MD ADM AUTHOR: Gianni Parham MD * ALL edits or amendments must be made on the [employer] document * Subjective Chief complaint: foot infection Comments: No new symptoms, patient denies any chest pain Telemetry: Sinus rhythm Objective General VS/I O: 24 hour I O ending at 0700: 08/20 0700 08/19 1900 Intake Total 1412.10 2437.40 Output Total Balance 1412.10 2437.40 Intake, IV 1412.10 1837.40 Intake, Oral 600 Vital Signs: Date Time Temp Pulse Resp B/P B/P Pulse O2 O2 F low FiO2 Mean Ox Delivery Rate 08/20 2114 104 21 140/67 97 95 08/20 2099 103 18 127/65 89 96 08/20 2044 103 18 131/63 91 93 08/20 2029 101 17 121/58 83 94 08/20 2014 101 19 126/59 85 94 08/21 1999 98 16 108/60 77 94 08/20 1945 97 16 110/57 75 95 08/20 1930 96 15 95/51 65 95 08/20 1915 96 17 96/52 70 95 08/20 1900 97 15 103/55 71 97 08/20 1815 101 20 100/58 79 95 03/29 1800 101 22 122/62 87 94 03/29 1745 100 22 116/59 84 95 03/29 1730 98 20 99/51 69 93 03/29 1715 97 17 111/59 79 95 03/29 1700 96 14 112/59 80 95 03/29 1645 94 15 109/55 74 95 03/ 1630 97 15 110/57 79 94 03/29 1615 95 14 110/59 77 96 03/ 1600 98.0 03/ 1600 92 14 101/55 71 95 03/29 1545 92 14 104/55 72 94 03/29 1530 92 14 114/57 80 94 03/29 1515 94 15 114/62 84 95 03/29 1500 93 15 108/57 78 95 03/ 1445 93 14 124/59 84 94 03/ 1430 91 14 121/60 82 95 03/ 1415 92 13 116/58 78 95 03/ 1400 91 13 118/59 80 95 03/ 1345 90 14 124/60 81 95 03/ 1330 88 13 110/58 78 96 03/29 1315 88 15 113/56 79 95 03/29 1300 88 14 106/55 77 93 03/ 1245 95 23 132/64 92 97 03/29 1230 100 24 134/66 95 93 03/ 1215 100 21 152/78 108 95 03/ 1200 98.0 03/ 1200 94 19 145/74 102 96 03/ 1145 94 21 138/74 101 96 03/ 1130 93 19 153/77 108 96 03/ 1115 93 19 159/77 110 96 03/29 1100 88 19 149/79 106 96 03/29 1045 86 17 130/71 95 97 03/29 1030 86 20 143/73 101 98 03/ 1015 91 23 161/79 113 97 03/29 1000 86 18 139/73 100 97 03/29 0945 85 21 152/73 105 97 03/29 0930 87 23 126/69 93 96 03/ 0915 81 15 122/68 90 97 03/29 0900 80 13 126/70 93 99 03/ 0845 80 12 121/67 86 96 03/29 0830 81 13 122/67 88 97 03/ 0815 80 18 119/65 88 97 03/29 0800 98.4 03/29 0800 80 10 123/65 87 97 03/29 0745 80 15 126/68 92 98 03/29 0730 80 15 127/70 92 98 03/29 0715 83 23 139/74 100 97 03/29 0700 82 15 124/69 92 97 03/29 0645 80 16 123/66 90 97 03/29 0630 81 17 132/73 98 97 03/29 0615 85 21 141/63 90 95 03/29 0600 80 15 131/75 97 98 03/29 0545 80 12 119/68 88 98 03/29 0530 79 13 132/76 99 99 03/29 0515 75 14 122/69 90 98 03/29 0500 72 13 111/62 81 98 03/29 0445 67 12 94/58 70 96 03/29 0430 68 13 100/60 75 97 03/29 0415 68 12 100/57 73 97 03/29 0400 98.2 03/29 0400 72 12 113/68 86 97 03/29 0345 72 14 106/63 79 98 03/29 0330 72 107/60 78 96 03/29 0315 71 12 111/65 83 97 03/29 0300 73 13 109/64 82 98 03/29 0245 70 13 106/60 77 97 03/29 0230 69 13 93/57 70 97 03/29 0220 69 13 89/54 67 97 03/29 0215 69 14 95/57 71 97 03/29 0210 70 14 96/56 70 96 03/29 0205 70 13 96/58 71 97 03/29 0200 71 13 97/59 74 97 03/29 0155 71 13 96/58 72 98 03/29 0150 73 12 104/58 74 97 03/29 0145 75 15 116/64 85 98 03/29 0140 74 12 108/60 77 96 03/29 0135 75 11 117/67 87 98 03/29 0130 76 13 106/63 80 98 03/29 0125 71 13 101/59 75 98 03/29 0120 72 12 101/60 75 97 03/29 0115 72 13 108/62 80 98 03/29 0110 75 12 113/67 85 99 03/29 0105 74 13 121/68 87 98 03/29 0100 77 15 115/67 86 98 03/29 0055 72 13 107/64 81 98 03/29 0050 80 12 109/62 80 99 03/ 0045 74 11 115/69 88 99 03/ 0040 75 11 112/67 85 100 / 0035 73 11 106/62 79 98 / 0030 75 14 113/66 85 98 / 0025 77 12 115/67 86 99 / 0020 74 14 116/65 86 98 / 0015 75 13 121/70 91 99 / 0010 75 13 112/66 85 98 / 0005 75 12 112/65 83 98 / 0000 97.7 08/20 0000 77 13 110/64 83 98 / 2355 75 12 116/65 85 100 / 2350 96 27 105/60 77 98 03/ 2345 75 11 99/58 73 99 / 2340 74 13 99/56 72 98 / 2335 74 14 102/58 75 99 / 2330 72 12 101/56 72 97 / 2325 74 16 99/60 74 99 03/ 2320 73 11 97/58 73 98 / 2315 73 11 103/60 75 99 / 2310 73 16 91/57 70 98 / 2305 73 14 95/59 73 99 / 2300 73 11 99/60 75 99 / 2255 71 12 94/55 71 99 / 2250 69 14 86/54 66 98 / 2245 70 13 93/57 70 98 / 2240 71 13 96/57 71 98 / 2235 77 11 101/58 73 99 / 2230 70 11 87/52 65 98 / 2225 69 12 89/53 66 98 / 2220 71 13 88/54 67 97 / 2215 70 12 93/58 71 96 / 2210 69 11 89/55 67 97 / 2205 70 12 94/58 71 98 / 2200 72 13 105/61 78 98 PATIENT WEIGHT: Weight (lb): 171 Weight (oz): 4.79 Weight (kg): 77.700 Medications: Active Meds + DC'd Last 24 Hrs Insulin Glargine (Lantus/Semglee) 25 UNIT BEDTIM E SUBQ Calcium Gluconate/Sodium Chloride (Calcium Gluco denny 1 GM/NS 50 mL) 50 ML ONCE ONE IV (DC) Insulin Human Lispro (HUMALOG) 7 UNIT AC SUBQ Insulin Human Lispro (HUMALOG) 0 AC HS SUBQ Dextrose/Water (DEXTROSE 10% IN WATER) 125 ML A SDIR PRN IV (CKD) Dextrose/Water (DEXTROSE 10% IN WATER) 250 ML DIR PRN IV (CKD) Glucagon (GLUCAGON) 1 MG ASDIR PRN IM Insulin Human Lispro (HUMALOG) 0 AC HS SUBQ (DC ) Insulin Glargine (Lantus/Semglee) 10 UNIT NOW ON E SUBQ (DC) Insulin Glargine (Lantus/Semglee) 15 UNIT BEDTIM E SUBQ (DC) Norepinephrine Bitartrate (NOREPINEPHRINE 8 MG/N S 250 ML) 250 ML TITRATE IV (DC) Albumin Human (ALBUMINAR 25%) 100 ML Q6H IV (DC) Sodium Chloride (SODIUM CHLORIDE 0.9%) 1,000 ML .[id number] IV Dextrose/Water (DEXTROSE 10% IN WATER) 250 ML DIR PRN IV (CKD) Insulin Human Regular (HumuLIN R) 100 UNIT ASDIR IV (DC) Sodium Chloride (SODIUM CHLORIDE 0.9%) 99 ML Dextrose/Water (DEXTROSE 10% IN WATER) 250 ML DIR PRN IV (CKD) Dextrose/Water (Dextrose 10% 1,000 mL) 1,000 ML ASDIR IV Insulin Human Regular (HumuLIN R) 100 UNIT ASDIR IV (DC) Sodium Chloride (SODIUM CHLORIDE 0.9%) 99 ML Vancomycin HCl (VANCOMYCIN HCL) 1,000 MG Q12H IV Sodium Chloride (SODIUM CHLORIDE 0.9%) 250 ML Meropenem (MEROPENEM) 500 MG Q6H IV (DC) Sterile Water (WATER FOR INJECTION) 10 ML Dextrose/Water (DEXTROSE 10% IN WATER) 250 ML DIR PRN IV (CKD) Clindamycin Phosphate (CLEOCIN 900 MG/NS 50 ML) 50 ML Q8H IV Famotidine (PEPCID) 20 MG Q12HR IV Acetaminophen (TYLENOL) 650 MG Q6H PRN PRN PO Bisacodyl (DULCOLAX) 10 MG DAILY PRN PRN RECTAL Docusate Sodium (COLACE) 100 MG Q12H PRN PRN PO Hydrocodone Bitart/Acetaminophen (NORCO 5/325) 1 TAB Q4H PRN PRN PO Morphine Sulfate (morphine SULFATE) 2 MG Q4H PRN PRN IV Ondansetron HCl (ZOFRAN) 4 MG Q6H PRN PRN IV Mupirocin (BACTROBAN 2% 22 GM OINTMENT) 1 APPLI C BID NASAL Heparin Sodium (HEPARIN 5000 UNITS/ML) 5,000 UNI T Q8HR SUBQ Dextrose/Water (DEXTROSE 10% IN WATER) 250 ML DIR PRN IV (CKD) Magnesium Sulfate (MAGNESIUM SULFATE 2GM/SWFI 50 ML) 50 ML ASDIR PRN IV ( DC) Magnesium Sulfate (MAGNESIUM SULFATE 4GM/SWFI 10 0ML) 100 ML ASDIR PRN IV (DC) Miscellaneous Information (VANCOMYCIN PHARMACY T O DOSE) 1 EACH ASDIR IV (CKD) Potassium Chloride (POTASSIUM CHLORIDE 20MEQ TAB .ER) 20 MEQ ASDIR PRN PO (DC) Potassium Chloride (POTASSIUM CHLORIDE 20MEQ TAB .ER) 40 MEQ ASDIR PRN PO (DC) Potassium Chloride (POTASSIUM CHLORIDE 20MEQ TAB .ER) 60 MEQ ASDIR PRN PO (DC) Potassium Chloride (KCL 20MEQ/SWFI 100ML) 100 ML ASDIR PRN IV (DC) Potassium Phosphate (POTASSIUM PHOSPHATE) 15 MM ASDIR PRN IV (DC) Sodium Chloride (SODIUM CHLORIDE 0.9%) 250 ML Physical Exam General appearance: alert, awake, oriented Neck: no bruit/NL carotids, no JVD Cardiovascular: CV assessment: abnormal S1/S2, regular rate and rhythm, no ectopy Respiratory: clear to auscultation, no distress Lower extremity: LE assessment: edema 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 X 3 Considered stroke alert: no Wound/incision: Location: right foot Results Findings/Data: Laboratory Tests 08/20 1636 1107 0756 0647 Chemistry POC Glucose (70 - 110 MG/DL) 123 H 201 H 173 H 192 H 206 H 08/20 08/20 08/20 08/20 08/19 0554 0454 0259 0101 2352 Chemistry Sodium (134 - 147 mEq/L) 137 Potassium (3.4 - 5.0 mEq/L) 3.7 Chloride (100 - 108 mEq/L) 107 Carbon Dioxide (21 - 33 mEq/l) 20 L Anion Gap (0 - 20) 14 BUN (7 - 18 mg/dL) 44 H Creatinine (0.6 - 1.3 mg/dL) 1.2 Glomerular Filtr Rate (90 - 95) 70.1 L Glucose (70 - 110 mg/dL) 212 H POC Glucose (70 - 110 MG/DL) 198 H 195 H 181 H 182 H Calcium (8.0 - 10.5 mg/dL) 7.3 L Ionized Calcium Mitzi (1.09 - 1.30 MMOL/L) 1.04 L Phosphorus (2.5 - 4.9 MG/DL) 3.4 Magnesium (1.80 - 2.40 mg/dL) 2.05 Total Bilirubin (0.0 - 1.0 mg/dL) 0.60 AST (15 - 37 IUnit/L) 51 H ALT (30 - 65 IUnit/L) 22 L Total Alk Phosphatase (20 - 125 IUnit/L) 178 H Total Protein (6.4 - 8.2 g/dL) 5.7 L Albumin (3.4 - 5.0 g/dL) 2.00 L 08/19 08/19 08/19 7962 2310 2223 Chemistry Sodium (134 - 147 mEq/L) 132 L Potassium (3.4 - 5.0 mEq/L) 3.7 Chloride (100 - 108 mEq/L) 107 Carbon Dioxide (21 - 33 mEq/l) 21 Anion Gap (0 - 20) 8 BUN (7 - 18 mg/dL) 41 H Creatinine (0.6 - 1.3 mg/dL) 1.2 Glomerular Filtr Rate (90 - 95) 70.1 L Glucose (70 - 110 mg/dL) 184 H POC Glucose (70 - 110 MG/DL) 191 H 165 H Calcium (8.0 - 10.5 mg/dL) 7.1 L Phosphorus (2.5 - 4.9 MG/DL) 3.3 Magnesium (1.80 - 2.40 mg/dL) 2.09 Albumin (3.4 - 5.0 g/dL) 1.70 L Laboratory Tests 08/20 08/19 0554 2310 Hematology WBC (4.5 - 11.0 x10 3/uL) 22.8 H RBC (4.00 - 5.60 x10 6/uL) 2.63 L Hgb (12.5 - 16.9 g/dL) 7.1 L 7.0 L Hct (37.5 - 50.7 %) 21.3 L 21.8 L MCV (81.0 - 99.0 fL) 81.0 MCH (27.0 - 33.0 pg) 27.0 MCHC (33.0 - 37.0 g/dL) 33.3 RDW (11.5 - 14.5 %) 14.7 H Plt Count (150 - 400 x10 3/uL) 190 MPV (7.0 - 9.0 fL) 10.0 H Neut % (Auto) (56.0 - 77.0 %) 87.2 H Lymph % (Auto) (14.0 - 32.0 %) 4.8 L Boundary % (Auto) (4.8 - 9.0 %) 2.9 L Eos % (Auto) (0.3 - 3.7 %) 0.0 L Baso % (Auto) (0.0 - 2.0 %) 0.2 Neut # (Auto) (2.0 - 7.6 x10 3/uL) 19.90 H Lymph # (Auto) (1.0 - 3.8 x10 3/uL) 1.10 Boundary # (Auto) (0.1 - 0.8 x10 3/uL) 0.66 Eos # (Auto) (0.0 - 0.2 x10 3/uL) 0.00 Baso # (Auto) (0.0 - 0.2 x10 3/uL) 0.04 Abs Immat Gran (auto) (0.00 - 0.03 x10 3/uL) 1. 12 H Add Manual Diff NO Immature Gran % (0.0 - 2.0 %) 4.9 H Nucleated RBC % (0 - 0 %) 0.0 Nucleated RBCs # (Man) (0.0 - 0.1 x10 3/uL) 0.0 0 Laboratory Tests 08/20 08/19 0554 2310 Chemistry Magnesium (1.80 - 2.40 mg/dL) 2.05 2.09 Diagnosis, Assessment Plan Free Text DxA P Notes Free Text DxA P Notes: Impression: 1. Preop eval/cardiac clearance 2. Infected right foot gas gangrene 3. DKA 4. Sepsis 5. Hypertension 6. Anemia Recommendation: Patient presented for evalua tion of altered mental status, weakness and elevated blood sugar. Diagnosed with DKA and seps is. 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 Known cardiac history of hypertensio n and hyperlipidemia. Denies prior history of CAD, CHF or arrhythmia. EKG abn ormal, NSR with anterior infarct. Vital signs stable. No prior cardiac wo rk-up. -Check echocardiogram -Monitor telemetry for arrhythmia -Monitor blood pressure trend -Wound care and IV antibiotic therapy -Supportive care 08/19: Patient doing better postop, blood pressur e control, currently in sinus rhythm, lower extremity artery Doppler negative for any significant PAD, continue current management from primary team an d podiatry service, continue monitor on telemetry for arrhythmia postop, supp ortive care, discussed with patient and family as well as RN, will follow. 08/20: Stable cardiac status. Remained in sinus r hythm, blood pressure well controlled, continue supportive care, will follserafin wCristina at 2257 RPT #:[id number] END OF REPORT 2022-08-20 20:11:00-00:00 [facility]) Podiatry Progress Note REPORT#:[id number] REPORT STATUS: Signed DATE:08/20/22 TIME: 2010 PATIENT: KARMA ROWLAND UNIT #: [id number] ROOM/BED: [place] [id number] : 61 AGE: 56 SEX: M ATTEND: Mikayla Ramires MD ADM AUTHOR: Liam Pedersen DPM * ALL edits or amendments must be made on the [employer]/computer document * Subjective Chief complaint: my foot is red and swollen Nursing reports: no constipation, no dizziness, no fatigue, no headache, no itching Comments: per nursing.... blood cultures and abscess cultu res show MRSA pt in ICU Objective General VS: Last Documented: Result Date Time Pulse Ox 95 08/20 1815 B/P 100/58 08/20 181 B/P Mean 79 08/20 181 Pulse 101 08/20 1815 Resp 20 08/20 181 Temp 36.7 08/20 1600 O2 Delivery Nasal cannula 08/19 1419 O2 Flow Rate 2 08/19 1419 PATIENT WEIGHT: Weight (lb): Weight (oz): Weight (kg): 77.700 Medications: Active Meds + DC'd Last 24 Hrs Insulin Glargine (Lantus/Semglee) 25 UNIT BEDTIM E SUBQ Calcium Gluconate/Sodium Chloride (Calcium Gluco denny 1 GM/NS 50 mL) 50 ML ONCE ONE IV (DC) Insulin Human Lispro (HUMALOG) 7 UNIT AC SUBQ Insulin Human Lispro (HUMALOG) 0 AC HS SUBQ Dextrose/Water (DEXTROSE 10% IN WATER) 125 ML DIR PRN IV (CKD) Dextrose/Water (DEXTROSE 10% IN WATER) 250 ML A SDIR PRN IV (CKD) Glucagon (GLUCAGON) 1 MG ASDIR PRN IM Insulin Human Lispro (HUMALOG) 0 AC HS SUBQ (DC) Insulin Glargine (Lantus/Semglee) 10 UNIT NOW ON E SUBQ (DC) Insulin Glargine (Lantus/Semglee) 15 UNIT BEDTIM E SUBQ (DC) Norepinephrine Bitartrate (NOREPINEPHRINE 8 MG/N S 250 ML) 250 ML TITRATE IV (DC) Albumin Human (ALBUMINAR 25%) 100 ML Q6H IV (DC) Sodium Chloride (SODIUM CHLORIDE 0.9%) 1,000 ML .[id number] IV Dextrose/Water (DEXTROSE 10% IN WATER) 250 ML DIR PRN IV (CKD) Insulin Human Regular (HumuLIN R) 100 UNIT ASDIR IV (DC) Sodium Chloride (SODIUM CHLORIDE 0.9%) 99 ML Diphenhydramine HCl (BENADRYL) 12.5 MG PACU ONC E PRN IV (DC) Fentanyl Citrate (SUBLIMAZE) 100 MCG PACU Q10MIN PRN PRN IV (DC) Fentanyl Citrate (SUBLIMAZE) 50 MCG PACU Q10MIN PRN PRN IV (DC) Hydralazine HCl (APRESOLINE) 5 MG PACU Q10MIN NV N PRN IV (DC) Hydrocodone Bitart/Acetaminophen (NORCO 5/325) 1 TAB PACU ONCE PO (DC) Hydromorphone HCl (DILAUDID) 1 MG PACU Q10MIN NV N PRN IV (DC) Hydromorphone HCl (DILAUDID) 0.5 MG PACU Q5MIN P RN PRN IV (DC) Insulin Human Lispro (HUMALOG) 0 PACU ONCE PRN S UBQ (DC) Labetalol HCl (LABETALOL HCL) 5 MG PACU Q10MIN P RN PRN IV (DC) Meperidine HCl (MEPERIDINE HCL/PF) 12.5 MG PACU ONCE PRN IV (DC) Morphine Sulfate (morphine SULFATE) 2 MG PACU Q1 0MIN PRN PRN IV (DC) Ondansetron HCl (ZOFRAN) 4 MG PACU ONCE PRN IV ( DC) Promethazine HCl (PHENERGAN) 25 MG PACU ONCE PRN PO (DC) Ropivacaine (NAROPIN 0.5% 150 MG/30mL) 150 MG DIR PRN LOCAL (DC) Tramadol HCl (ULTRAM) 50 MG PACU ONCE PO (DC) Dextrose/Water (DEXTROSE 10% IN WATER) 250 ML DIR PRN IV (CKD) Dextrose/Water (Dextrose 10% 1,000 mL) 1,000 ML ASDIR IV Insulin Human Regular (HumuLIN R) 100 UNIT ASDIR IV (DC) Sodium Chloride (SODIUM CHLORIDE 0.9%) 99 ML Vancomycin HCl (VANCOMYCIN HCL) 1,000 MG Q12H IV Sodium Chloride (SODIUM CHLORIDE 0.9%) 250 ML Meropenem (MEROPENEM) 500 MG Q6H IV (DC) Sterile Water (WATER FOR INJECTION) 10 ML Dextrose/Water (DEXTROSE 10% IN WATER) 250 ML DIR PRN IV (CKD) Clindamycin Phosphate (CLEOCIN 900 MG/NS 50 ML) 50 ML Q8H IV Famotidine (PEPCID) 20 MG Q12HR IV Acetaminophen (TYLENOL) 650 MG Q6H PRN PRN PO Bisacodyl (DULCOLAX) 10 MG DAILY PRN PRN RECTAL Docusate Sodium (COLACE) 100 MG Q12H PRN PRN PO Hydrocodone Bitart/Acetaminophen (NORCO 5/325) 1 TAB Q4H PRN PRN PO Morphine Sulfate (morphine SULFATE) 2 MG Q4H PRN PRN IV Ondansetron HCl (ZOFRAN) 4 MG Q6H PRN PRN IV Mupirocin (BACTROBAN 2% 22 GM OINTMENT) 1 APPLIC BID NASAL Heparin Sodium (HEPARIN 5000 UNITS/ML) 5,000 UNI T Q8HR SUBQ Dextrose/Water (DEXTROSE 10% IN WATER) 250 ML DIR PRN IV (CKD) Magnesium Sulfate (MAGNESIUM SULFATE 2GM/SWFI 50 ML) 50 ML ASDIR PRN IV ( DC) Magnesium Sulfate (MAGNESIUM SULFATE 4GM/SWFI 10 0ML) 100 ML ASDIR PRN IV (DC) Miscellaneous Information (VANCOMYCIN PHARMACY T O DOSE) 1 EACH ASDIR IV (CKD) Potassium Chloride (POTASSIUM CHLORIDE 20MEQ TAB .ER) 20 MEQ ASDIR PRN PO (DC) Potassium Chloride (POTASSIUM CHLORIDE 20MEQ TAB .ER) 40 MEQ ASDIR PRN PO (DC) Potassium Chloride (POTASSIUM CHLORIDE 20MEQ TAB .ER) 60 MEQ ASDIR PRN PO (DC) Potassium Chloride (KCL 20MEQ/SWFI 100ML) 100 ML ASDIR PRN IV (DC) Potassium Phosphate (POTASSIUM PHOSPHATE) 15 MM ASDIR PRN IV (DC) Sodium Chloride (SODIUM CHLORIDE 0.9%) 250 ML I O: 24 hour I O ending at 0700: 08/20 0700 08/19 1900 Intake Total 1412.10 2437.40 Output Total Balance 1412.10 2437.40 Intake, IV 1412.10 1837.40 Intake, Oral 600 Dietitian nutrition assessment The data set between the solid lines has been im ported from the dietitian's assessment. BMI Calculated: 27.6 Nutrition related diagnosis: Nutrition diagnosis details: Nutrition problem: Nutrition etiology: Nutrition signs and symptoms: Nutrition prescription: Dietitian name: Assessment completed: Physical Exam General appearance: alert, awake, oriented Wound/incision: Location: Right foot to right ankle. DP and PT pulses are very weak essentially nonpa lpable. There is severe edema of the right foot to the r ight ankle, better. There is erythema of the right foot to the right ankle, much better. Not really any ascending lymphangitis past there . Crepitation is at the medial right hindfoot and the dorsal right midfoot are significantly less. There is no longer crepitation at the lateral ri ght ankle. There is some bullae that are peeling medial and lateral. Sensation is greatly decreased on the right foot . base of three wounds fibrotic. sero purulent drainage. bones and tendons exposed. LE vascular pulse assess: Nonpalpable R posterior tibialis, Nonpalpable R dorsalis pedis Considered stroke alert: no Results Findings/Data: Laboratory Tests: 08/20 08/20 08/20 08/20 08/20 1636 1107 0756 0647 0554 Chemistry Sodium (134 - 147 mEq/L) 137 Potassium (3.4 - 5.0 mEq/L) 3.7 Chloride (100 - 108 mEq/L) 107 Carbon Dioxide (21 - 33 mEq/l) 20 L Anion Gap (0 - 20) 14 BUN (7 - 18 mg/dL) 44 H Creatinine (0.6 - 1.3 mg/dL) 1.2 Glomerular Filtr Rate (90 - 95) 70.1 L Glucose (70 - 110 mg/dL) 212 H POC Glucose (70 - 110 MG/DL) 201 H 173 H 192 H 206 H Calcium (8.0 - 10.5 mg/dL) 7.3 L Ionized Calcium Mitzi (1.09 - 1.30 MMOL/L) 1.04 L Phosphorus (2.5 - 4.9 MG/DL) 3.4 Magnesium (1.80 - 2.40 mg/dL) 2.05 Total Bilirubin (0.0 - 1.0 mg/dL) 0.60 AST (15 - 37 IUnit/L) 51 H ALT (30 - 65 IUnit/L) 22 L Total Alk Phosphatase (20 - 125 IUnit/L) 178 H Total Protein (6.4 - 8.2 g/dL) 5.7 L Albumin (3.4 - 5.0 g/dL) 2.00 L Hematology WBC (4.5 - 11.0 x10 3/uL) 22.8 H RBC (4.00 - 5.60 x10 6/uL) 2.63 L Hgb (12.5 - 16.9 g/dL) 7.1 L Hct (37.5 - 50.7 %) 21.3 L MCV (81.0 - 99.0 fL) 81.0 MCH (27.0 - 33.0 pg) 27.0 MCHC (33.0 - 37.0 g/dL) 33.3 RDW (11.5 - 14.5 %) 14.7 H Plt Count (150 - 400 x10 3/uL) 190 MPV (7.0 - 9.0 fL) 10.0 H Neut % (Auto) (56.0 - 77.0 %) 87.2 H Lymph % (Auto) (14.0 - 32.0 %) 4.8 L Boundary % (Auto) (4.8 - 9.0 %) 2.9 L Eos % (Auto) (0.3 - 3.7 %) 0.0 L Baso % (Auto) (0.0 - 2.0 %) 0.2 Neut # (Auto) (2.0 - 7.6 x10 3/uL) 19.90 H Lymph # (Auto) (1.0 - 3.8 x10 3/uL) 1.10 Boundary # (Auto) (0.1 - 0.8 x10 3/uL) 0.66 Eos # (Auto) (0.0 - 0.2 x10 3/uL) 0.00 Baso # (Auto) (0.0 - 0.2 x10 3/uL) 0.04 Abs Immat Gran (auto) (0.00 - 0.03 1.12 H x10 3/uL) Add Manual Diff NO Immature Gran % (0.0 - 2.0 %) 4.9 H Nucleated RBC % (0 - 0 %) 0.0 Nucleated RBCs # (Man) (0.0 - 0.1 0.00 x10 3/uL) 08/20 08/20 08/20 08/19 08/19 0454 0259 0101 1542 2322 Chemistry POC Glucose (70 - 110 MG/DL) 198 H 195 H 181 H 182 H 191 H 08/19 08/19 08/19 08/19 2310 2226 2131 2014 Chemistry Sodium (134 - 147 mEq/L) 132 L Potassium (3.4 - 5.0 mEq/L) 3.7 Chloride (100 - 108 mEq/L) 107 Carbon Dioxide (21 - 33 mEq/l) 21 Anion Gap (0 - 20) 8 BUN (7 - 18 mg/dL) 41 H Creatinine (0.6 - 1.3 mg/dL) 1.2 Glomerular Filtr Rate (90 - 95) 70.1 L Glucose (70 - 110 mg/dL) 184 H POC Glucose (70 - 110 MG/DL) 165 H 209 H 218 H Calcium (8.0 - 10.5 mg/dL) 7.1 L Phosphorus (2.5 - 4.9 MG/DL) 3.3 Magnesium (1.80 - 2.40 mg/dL) 2.09 Albumin (3.4 - 5.0 g/dL) 1.70 L Hematology Hgb (12.5 - 16.9 g/dL) 7.0 L Hct (37.5 - 50.7 %) 21.8 L Microbiology: 08/20 1458 BLOOD: Blood Culture - ORD 08/20 1458 BLOOD: Blood Culture - ORD 08/19 1710 BLOOD: Blood Culture - ORD 08/19 1710 BLOOD: Blood Culture - ORD 08/19 1622 URINE: Urine Culture - RES 08/19 1210 ABSCESS: Wound Culture - RES COAG POS STAPHYLOCOCCUS 08/19 1210 ABSCESS: Anaerobic Culture - RES 08/19 1210 ABSCESS: Gram Stain - RES 08/18 0915 FOOT: Wound Culture - ORD 08/18 0207 FOOT: Wound Culture - RES STAPH AUREUS,METHICILLIN RESIS 08/18 0207 THROAT: Group A Streptococcus Screen (VERONICA) - COMP 08/18 0207 THROAT: Streptococcus Culture - COMP 08/18 0203 BLOOD: Blood Culture - COMP STAPH AUREUS,METHICILLIN RESIS 08/18 0203 BLOOD: Blood Culture Gram Stain - COM P 08/18 0203 BLOOD: Blood Culture - COMP STAPH AUREUS,METHICILLIN RESIS 08/18 0203 BLOOD: Blood Culture Gram Stain - COM P Recent Impressions-Last 72 Hrs RADIOLOGY - XR CHEST 2 V 08/18 0201 Report Impression - Status: SIGNED Entered: 08/18/2022316 IMPRESSION: Ill-defined somewhat nodular opacity measuring 3 .2 cm laterally in the right mid lung suspicious for rounded pneumo ro given provided history, but underlying neoplasm can not be excl uded. Followup radiographs are recommended after appropriate tr eatment in order to document complete resolution and exclude an unde rlying process or neoplasm. Impression By: [email or web address] - Dom Adams M.D. RADIOLOGY - XR FOOT 3 + V RT 08/18 0238 Report Impression - Status: SIGNED Entered: 08/18/2022 0358 IMPRESSION: No acute osseous findings. No convincing evidenc e for osteomyelitis. MRI is more sensitive for detecti ng osteomyelitis. Impression By: Ankur Ladd M.D. CAT SCAN - CT ABD PELVIS W/CONT 08/18 0339 Report Impression - Status: SIGNED Entered: 08/18/2022 0546 IMPRESSION: 3.3 cm hypodensity in the left posterior prostat e or seminal vesicle. This could represent an abscess. Contra st-enhanced MRI of the pelvis would be helpful for further evaluati on. No acute intra-abdominal findings otherwise. Impression By: TipWJJohn Ladd M.D. CAT SCAN - CT LOWER EXTRM W/O C RT 08/18 0645 Report Impression - Status: SIGNED Entered: 08/18/2022 0827 IMPRESSION: Extensive soft tissue edema with mottled gas in the subcutaneous and intramuscular compartments of the foot abhishek tible with gas-forming infection. Disease extends into the visualized distal leg. Impression By: Jamel Dorantes M.D. ULTRASOUND - [facility] [employer] 08/19 0950 Report Impression - Status: SIGNED Entered: 08/19/2022 1056 IMPRESSION: No sonographic evidence for flow-limiting stenos is in the right lower extremity arterial system. Impression By: [email or web address] Cr Ross M.D. Diagnosis, Assessment Plan Free Text A P: Gas gangrene right foot and right ankle (Gas in tissues/abscess) Diabetes with peripheral neuropathy Minimal peripheral vascular disease Leukocytosis Sepsis DKA s/p surgical debridement and washout CAT scan shows gas in 3 locations X-rays right foot show no osseous change packing with Iodoform. IV antibiotics Monitor leukocytosis Discussed with internal medicine team NIAS: minimal PVD right 08/18 wound culture: MRSA (This one is not accura te, it is of skin that was intact) 08/19 OR culture: CPS blood cultures: MRSA Offloading boot ICU for now pulse lavage by physical therapy Electronically Signed by Liam Pedersen DPM on 0 08/20/22 at 2017 RPT #:[id number] END OF REPORT 2022-08-20 19:36:00-00:[address] [facility] ([facility] Urology Progress Note REPORT#:[id number] REPORT STATUS: Signed DATE:08/20/22 TIME: 1935 PATIENT: KARMA ROWLAND UNIT #: [id number] ROOM/BED: [place] [address] : 63 AGE: 56 SEX: M ATTEND: David Ramires MD ADM AUTHOR: David Bass MD * ALL edits or amendments must be made on the [employer]/computer document * Subjective Patient reports: no complaints Objective General VS/I O: Last Documented: Result Date Time Pulse Ox 95 08/20 1815 B/P 100/58 08/20 1815 B/P Mean 79 08/20 1815 Pulse 101 08/20 1815 Resp 20 08/20 181 Temp 36.7 08/20 1600 O2 Delivery Nasal cannula 08/19 1419 O2 Flow Rate 2 08/19 1419 24 hour I O ending at 0700: 08/20 0700 08/19 1900 Intake Total 1412.10 2437.40 Output Total Balance 1412.10 2437.40 Intake, IV 1412.10 1837.40 Intake, Oral 600 PATIENT WEIGHT: Weight (lb): Weight (oz): Weight (kg): 77.700 Physical Exam General appearance: alert, awake Results Findings/Data: Laboratory Tests: 08/20 08/20 08/20 08/20 1636 1107 0756 0647 Chemistry POC Glucose (70 - 110 MG/DL) 201 H 173 H 192 H 206 H 08/20 08/20 08/20 08/20 0554 0454 0259 0101 Chemistry Sodium (134 - 147 mEq/L) 137 Potassium (3.4 - 5.0 mEq/L) 3.7 Chloride (100 - 108 mEq/L) 107 Carbon Dioxide (21 - 33 mEq/l) 20 L Anion Gap (0 - 20) 14 BUN (7 - 18 mg/dL) 44 H Creatinine (0.6 - 1.3 mg/dL) 1.2 Glomerular Filtr Rate (90 - 95) 70.1 L Glucose (70 - 110 mg/dL) 212 H POC Glucose (70 - 110 MG/DL) 198 H 195 H 181 H Calcium (8.0 - 10.5 mg/dL) 7.3 L Ionized Calcium Mitzi (1.09 - 1.30 MMOL/L) 1.04 L Phosphorus (2.5 - 4.9 MG/DL) 3.4 Magnesium (1.80 - 2.40 mg/dL) 2.05 Total Bilirubin (0.0 - 1.0 mg/dL) 0.60 AST (15 - 37 IUnit/L) 51 H ALT (30 - 65 IUnit/L) 22 L Total Alk Phosphatase (20 - 125 IUnit/L) 178 H Total Protein (6.4 - 8.2 g/dL) 5.7 L Albumin (3.4 - 5.0 g/dL) 2.00 L Hematology WBC (4.5 - 11.0 x10 3/uL) 22.8 H RBC (4.00 - 5.60 x10 6/uL) 2.63 L Hgb (12.5 - 16.9 g/dL) 7.1 L Hct (37.5 - 50.7 %) 21.3 L MCV (81.0 - 99.0 fL) 81.0 MCH (27.0 - 33.0 pg) 27.0 MCHC (33.0 - 37.0 g/dL) 33.3 RDW (11.5 - 14.5 %) 14.7 H Plt Count (150 - 400 x10 3/uL) 190 MPV (7.0 - 9.0 fL) 10.0 H Neut % (Auto) (56.0 - 77.0 %) 87.2 H Lymph % (Auto) (14.0 - 32.0 %) 4.8 L Boundary % (Auto) (4.8 - 9.0 %) 2.9 L Eos % (Auto) (0.3 - 3.7 %) 0.0 L Baso % (Auto) (0.0 - 2.0 %) 0.2 Neut # (Auto) (2.0 - 7.6 x10 3/uL) 19.90 H Lymph # (Auto) (1.0 - 3.8 x10 3/uL) 1.10 Boundary # (Auto) (0.1 - 0.8 x10 3/uL) 0.66 Eos # (Auto) (0.0 - 0.2 x10 3/uL) 0.00 Baso # (Auto) (0.0 - 0.2 x10 3/uL) 0.04 Abs Immat Gran (auto) (0.00 - 0.03 x10 3/uL) 1. 12 H Add Manual Diff NO Immature Gran % (0.0 - 2.0 %) 4.9 H Nucleated RBC % (0 - 0 %) 0.0 Nucleated RBCs # (Man) (0.0 - 0.1 x10 3/uL) 0.0 0 08/19 08/19 08/19 08/19 08/19 2352 2322 2310 2223 2131 Chemistry Sodium (134 - 147 mEq/L) 132 L Potassium (3.4 - 5.0 mEq/L) 3.7 Chloride (100 - 108 mEq/L) 107 Carbon Dioxide (21 - 33 mEq/l) 21 Anion Gap (0 - 20) 8 BUN (7 - 18 mg/dL) 41 H Creatinine (0.6 - 1.3 mg/dL) 1.2 Glomerular Filtr Rate (90 - 95) 70.1 L Glucose (70 - 110 mg/dL) 184 H POC Glucose (70 - 110 MG/DL) 182 H 191 H 165 H 209 H Calcium (8.0 - 10.5 mg/dL) 7.1 L Phosphorus (2.5 - 4.9 MG/DL) 3.3 Magnesium (1.80 - 2.40 mg/dL) 2.09 Albumin (3.4 - 5.0 g/dL) 1.70 L Hematology Hgb (12.5 - 16.9 g/dL) 7.0 L Hct (37.5 - 50.7 %) 21.8 L 08/19 2014 Chemistry POC Glucose (70 - 110 MG/DL) 218 H Diagnosis, Assessment Plan Free Text A P: Concern for prostate hypodensity. PSA 0.9. prost ate cancer or abscess would most likely elevate his PSA. Waiting on MRI of p francie to be completed at 1938 RPT #:[id number] END OF REPORT 2022-08-20 16:36:00-00:[address] [facility] ([facility]) Critical Care Progress Note REPORT#:[id number] REPORT STATUS: Signed DATE:08/20/22 TIME: 1636 PATIENT: KARMA ROWLAND UNIT #: [id number] ROOM/BED: [place] [id number] : 63 AGE: 56 SEX: M ATTEND: Mikayla Ramires MD ADM AUTHOR: Alma De La Rosa CLAY MILLER * ALL edits or amendments must be made on the [employer]/computer document * Subjective Chief complaint: RLE pain HPI: Karma Rowland is a 56 y/o M PMH of DM. Presented 08/18 with fever, AMS. He was found to have labs consisent with DKA with AGAP 21 and glucose 700+. RLE was very swollen/painful CT done concerning for gas gangrene. Review of Systems All systems rev neg: except as marked Objective General VS/I O Vital Signs Date Temp Pulse Resp B/P B/P Mean Pulse Ox FiO2 08/19-08/20 97.7-98.2 66-96 10-27 70-141/45-76 54-99 90-100 24 hour I O ending at 0700: 08/20 0700 08/19 1900 Intake Total 1412.10 2437.40 Output Total Balance 1412.10 2437.40 Intake, IV 1412.10 1837.40 Intake, Oral 600 PATIENT WEIGHT: Weight (lb): Weight (oz): Weight (kg): 77.700 Temperature maximum: 98.2 Physical Exam General appearance: alert, awake, oriented, no a cute distress Head/eyes: atraumatic, clear cornea, normocephal ic, PERRLA ENT: moist mucosal membranes, normal dentition, normal nose Neck: full range of motion, non-tender, no JVD, no masses or swelling Cardiovascular: decreased cap refill, tachycardi a, regular rate and rhythm Respiratory: aerating well, clear to auscultatio n, symmetric expansion Abdomen: soft, non-tender, normal bowel sounds Extremities: decreased range of motion, edema, m oves all Musculoskeletal decreased ROM 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, 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, no motor defici ts, no sensory deficits Considered stroke alert: no Skin: abnormal color, abnormal temperature Wound/incision: Location: right foot Site condition: dressing clean dry, dressing in tact Psychiatry: normal affect Results Findings/data: Laboratory Tests 08/20/22 0554: [Embedded Image Not Available] 08/19/22 2310: [Embedded Image Not Available] 08/19/22 1652: [Embedded Image Not Available] Microbiology: 08/20 1458 BLOOD: Blood Culture - ORD 08/20 1458 BLOOD: Blood Culture - ORD 08/19 1710 BLOOD: Blood Culture - ORD 08/19 1710 BLOOD: Blood Culture - ORD 08/19 1622 URINE: Urine Culture - RES 08/19 1210 ABSCESS: Wound Culture - RES COAG POS STAPHYLOCOCCUS 08/19 1210 ABSCESS: Anaerobic Culture - RES 08/19 1210 ABSCESS: Gram Stain - RES 08/18 0915 FOOT: Wound Culture - ORD 08/18 0207 FOOT: Wound Culture - RES STAPH AUREUS,METHICILLIN RESIS 08/18 0207 THROAT: Group A Streptococcus Screen (VERONICA) - COMP 08/18 0207 THROAT: Streptococcus Culture - COMP 08/18 0203 BLOOD: Blood Culture - COMP STAPH AUREUS,METHICILLIN RESIS 08/18 0203 BLOOD: Blood Culture Gram Stain - COM P 08/18 0203 BLOOD: Blood Culture - COMP STAPH AUREUS,METHICILLIN RESIS 08/18 0203 BLOOD: Blood Culture Gram Stain - COM P Results: labs reviewed, vital signs reviewed, vi brittny signs stable, rhythm personally rev'd, x-ray personally reviewed, cur damián med profile rev'd Diagnosis, Assessment Plan Free text A P: 56 year old male unknown PMH who presented 08/18 with fever, AMS. He was found to have labs consisent with DKA with AGAP 21 and glucose 700+. Problem list: * Acute post op pain * DKA * pseudohyponatremia * tachycardia/hypotension likely secondary to hy povolemia * ERIKA * microcytic anemia - iron deficency * gram positive bactermia likely MRSA * RLE necrotizing fascitis /gas gangrene 08/20/22: no overnight events . pt is awake, pain is controlled, toleratind diet, RA, hemodynamically stable. cont IVF for now. HH holding. transition off insulin gtt. afebrile. ok to tx to IMCU. Neuro: pain regimen per scale CV: cont IVF resuscitation. Pulm: no issues. wean NC to maintain SpO2>92% GI: no issues, advance diet. bowel regimen Renal: cont IVF, trend cr, serial chemistry, mon itor I O Heme: trend HH, will need outpatient eval for et iology ID: blood cx + CONS. merrem/ clindamycin Endo: insulin protocol + lantus per endocrinolog ist. gap closed. a1c>14. MUSK: s/p RLE debridement on 08/19 GI px: pepcid -- pt is anemi c with no clear source of bleeding will cont for now DVT px: hep sq Dispo: ICU I have spent 25 minutes crit ical care time assessing, reviewing labs and imaging and discussing plan of care with the critical ca re senior network security engineer. Electronically Signed by Alma De La Rosa CLAY MILLER on 0 08/20/22 at 1644 RPT #:[id number] END OF REPORT 2022-08-20 15:25:00-00:00 HCACL [facility] Endocrinology Progress Note REPORT#:[id number] REPORT STATUS: Signed DATE:08/20/22 TIME: 1525 PATIENT: KARMA ROWLAND UNIT #: [id number] ROOM/BED: [place] [id number] : 63 AGE: 56 SEX: M ATTEND: Mikayla Ramires MD ADM AUTHOR: Braxton Chapin MD * ALL edits or amendments must be made on the [employer]/computer document * Subjective Patient reports: no complaints Objective General VS: Last Documented: Result Date Time Pulse Ox 97 08/20 0700 B/P 124/69 08/20 0700 B/P Mean 92 08/20 0700 Pulse 82 08/20 0700 Resp 15 08/20 0700 Temp 36.8 08/20 0400 O2 Delivery Nasal cannula 08/19 1419 O2 Flow Rate 2 08/19 1419 PATIENT WEIGHT: Weight (lb): Weight (oz): Weight (kg): 77.700 Medications: Active Meds + DC'd Last 24 Hrs Insulin Glargine (Lantus/Semglee) 25 UNIT BEDTIM E SUBQ Insulin Human Lispro (HUMALOG) 0 AC HS SUBQ Insulin Glargine (Lantus/Semglee) 10 UNIT NOW ON E SUBQ (DC) Insulin Glargine (Lantus/Semglee) 15 UNIT BEDTIM E SUBQ (DC) Norepinephrine Bitartrate (NOREPINEPHRINE 8 MG/N S 250 ML) 250 ML TITRATE IV Sodium Chloride (SODIUM CHLORIDE 0.9%) 500 ML BARBARA LINNETTE ONCE ONE IV (DC) Albumin Human (ALBUMINAR 25%) 100 ML Q6H IV (DC) Sodium Chloride (SODIUM CHLORIDE 0.9%) 500 ML BARBARA LINNETTE ONCE ONE IV (DC) Sodium Chloride (SODIUM CHLORIDE 0.9%) 1,000 ML .[id number] IV Dextrose/Water (DEXTROSE 10% IN WATER) 250 ML DIR PRN IV (CKD) Insulin Human Regular (HumuLIN R) 100 UNIT ASDIR IV (DC) Sodium Chloride (SODIUM CHLORIDE 0.9%) 99 ML Diphenhydramine HCl (BENADRYL) 12.5 MG PACU ONCE PRN IV (DC) Fentanyl Citrate (SUBLIMAZE) 100 MCG PACU Q10MIN PRN PRN IV (DC) Fentanyl Citrate (SUBLIMAZE) 50 MCG PACU Q10MIN PRN PRN IV (DC) Hydralazine HCl (APRESOLINE) 5 MG PACU Q10MIN NV N PRN IV (DC) Hydrocodone Bitart/Acetaminophen (NORCO 5/325) 1 TAB PACU ONCE PO (DC) Hydromorphone HCl (DILAUDID) 1 MG PACU Q10MIN NV N PRN IV (DC) Hydromorphone HCl (DILAUDID) 0.5 MG PACU Q5MIN P RN PRN IV (DC) Insulin Human Lispro (HUMALOG) 0 PACU ONCE PRN S UBQ (DC) Labetalol HCl (LABETALOL HCL) 5 MG PACU Q10MIN P RN PRN IV (DC) Meperidine HCl (MEPERIDINE HCL/PF) 12.5 MG PACU ONCE PRN IV (DC) Morphine Sulfate (morphine SULFATE) 2 MG PACU Q1 0MIN PRN PRN IV (DC) Ondansetron HCl (ZOFRAN) 4 MG PACU ONCE PRN IV ( DC) Promethazine HCl (PHENERGAN) 25 MG PACU ONCE PRN PO (DC) Ropivacaine (NAROPIN 0.5% 150 MG/30mL) 150 MG DIR PRN LOCAL (DC) Tramadol HCl (ULTRAM) 50 MG PACU ONCE PO (DC) Dextrose/Water (DEXTROSE 10% IN WATER) 250 ML DIR PRN IV (CKD) Dextrose/Water (Dextrose 10% 1,000 mL) 1,000 ML ASDIR IV Insulin Human Regular (HumuLIN R) 100 UNIT ASDIR IV (DC) Sodium Chloride (SODIUM CHLORIDE 0.9%) 99 ML Vancomycin HCl (VANCOMYCIN HCL) 1,000 MG Q12H IV Sodium Chloride (SODIUM CHLORIDE 0.9%) 250 ML Meropenem (MEROPENEM) 500 MG Q6H IV (DC) Sterile Water (WATER FOR INJECTION) 10 ML Dextrose/Water (DEXTROSE 10% IN WATER) 250 ML DIR PRN IV (CKD) Clindamycin Phosphate (CLEOCIN 900 MG/NS 50 ML) 50 ML Q8H IV Famotidine (PEPCID) 20 MG Q12HR IV Acetaminophen (TYLENOL) 650 MG Q6H PRN PRN PO Bisacodyl (DULCOLAX) 10 MG DAILY PRN PRN RECTAL Docusate Sodium (COLACE) 100 MG Q12H PRN PRN PO Hydrocodone Bitart/Acetaminophen (NORCO 5/325) 1 TAB Q4H PRN PRN PO Morphine Sulfate (morphine SULFATE) 2 MG Q4H PRN PRN IV Ondansetron HCl (ZOFRAN) 4 MG Q6H PRN PRN IV Mupirocin (BACTROBAN 2% 22 GM OINTMENT) 1 APPLIC BID NASAL Heparin Sodium (HEPARIN 5000 UNITS/ML) 5,000 UNI T Q8HR SUBQ Dextrose/Water (DEXTROSE 10% IN WATER) 250 ML DIR PRN IV (CKD) Magnesium Sulfate (MAGNESIUM SULFATE 2GM/SWFI 50 ML) 50 ML ASDIR PRN IV Magnesium Sulfate (MAGNESIUM SULFATE 4GM/SWFI 10 0ML) 100 ML ASDIR PRN IV Miscellaneous Information (VANCOMYCIN PHARMACY T O DOSE) 1 EACH ASDIR IV (CKD) Potassium Chloride (POTASSIUM CHLORIDE 20MEQ TAB .ER) 20 MEQ ASDIR PRN PO Potassium Chloride (POTASSIUM CHLORIDE 20MEQ TAB .ER) 40 MEQ ASDIR PRN PO Potassium Chloride (POTASSIUM CHLORIDE 20MEQ TAB .ER) 60 MEQ ASDIR PRN PO (CKD) Potassium Chloride (KCL 20MEQ/SWFI 100ML) 100 ML ASDIR PRN IV Potassium Phosphate (POTASSIUM PHOSPHATE) 15 MM ASDIR PRN IV Sodium Chloride (SODIUM CHLORIDE 0.9%) 250 ML Physical Exam General appearance: alert, awake Diagnosis, Assessment Plan Hospital course to date: Laboratory Tests: 08/20 08/20 08/20 08/20 08/20 1107 0756 0647 0554 0454 Chemistry Sodium (134 - 147 mEq/L) 137 Potassium (3.4 - 5.0 mEq/L) 3.7 Chloride (100 - 108 mEq/L) 107 Carbon Dioxide (21 - 33 mEq/l) 20 L Anion Gap (0 - 20) 14 BUN (7 - 18 mg/dL) 44 H Creatinine (0.6 - 1.3 mg/dL) 1.2 Glomerular Filtr Rate (90 - 95) 70.1 L Glucose (70 - 110 mg/dL) 212 H POC Glucose (70 - 110 MG/DL) 173 H 192 H 206 H 198 H Calcium (8.0 - 10.5 mg/dL) 7.3 L Ionized Calcium Mitzi (1.09 - 1.30 MMOL/L) 1.04 L Phosphorus (2.5 - 4.9 MG/DL) 3.4 Magnesium (1.80 - 2.40 mg/dL) 2.05 Total Bilirubin (0.0 - 1.0 mg/dL) 0.60 AST (15 - 37 IUnit/L) 51 H ALT (30 - 65 IUnit/L) 22 L Total Alk Phosphatase (20 - 125 IUnit/L) 178 H Total Protein (6.4 - 8.2 g/dL) 5.7 L Albumin (3.4 - 5.0 g/dL) 2.00 L Hematology WBC (4.5 - 11.0 x10 3/uL) 22.8 H RBC (4.00 - 5.60 x10 6/uL) 2.63 L Hgb (12.5 - 16.9 g/dL) 7.1 L Hct (37.5 - 50.7 %) 21.3 L MCV (81.0 - 99.0 fL) 81.0 MCH (27.0 - 33.0 pg) 27.0 MCHC (33.0 - 37.0 g/dL) 33.3 RDW (11.5 - 14.5 %) 14.7 H Plt Count (150 - 400 x10 3/uL) 190 MPV (7.0 - 9.0 fL) 10.0 H Neut % (Auto) (56.0 - 77.0 %) 87.2 H Lymph % (Auto) (14.0 - 32.0 %) 4.8 L Boundary % (Auto) (4.8 - 9.0 %) 2.9 L Eos % (Auto) (0.3 - 3.7 %) 0.0 L Baso % (Auto) (0.0 - 2.0 %) 0.2 Neut # (Auto) (2.0 - 7.6 x10 3/uL) 19.90 H Lymph # (Auto) (1.0 - 3.8 x10 3/uL) 1.10 Boundary # (Auto) (0.1 - 0.8 x10 3/uL) 0.66 Eos # (Auto) (0.0 - 0.2 x10 3/uL) 0.00 Baso # (Auto) (0.0 - 0.2 x10 3/uL) 0.04 Abs Immat Gran (auto) (0.00 - 0.03 1.12 H x10 3/uL) Add Manual Diff NO Immature Gran % (0.0 - 2.0 %) 4.9 H Nucleated RBC % (0 - 0 %) 0.0 Nucleated RBCs # (Man) (0.0 - 0.1 0.00 x10 3/uL) 08/20 08/20 08/19 08/19 08/19 0259 0101 2352 2322 2310 Chemistry Sodium (134 - 147 mEq/L) 132 L Potassium (3.4 - 5.0 mEq/L) 3.7 Chloride (100 - 108 mEq/L) 107 Carbon Dioxide (21 - 33 mEq/l) 21 Anion Gap (0 - 20) 8 BUN (7 - 18 mg/dL) 41 H Creatinine (0.6 - 1.3 mg/dL) 1.2 Glomerular Filtr Rate (90 - 95) 70.1 L Glucose (70 - 110 mg/dL) 184 H POC Glucose (70 - 110 MG/DL) 195 H 181 H 182 H 191 H Calcium (8.0 - 10.5 mg/dL) 7.1 L Phosphorus (2.5 - 4.9 MG/DL) 3.3 Magnesium (1.80 - 2.40 mg/dL) 2.09 Albumin (3.4 - 5.0 g/dL) 1.70 L Hematology Hgb (12.5 - 16.9 g/dL) 7.0 L Hct (37.5 - 50.7 %) 21.8 L 08/19 172 165 Chemistry Sodium (134 - 147 mEq/L) 133 L Potassium (3.4 - 5.0 mEq/L) 3.6 Chloride (100 - 108 mEq/L) 105 Carbon Dioxide (21 - 33 mEq/l) 21 Anion Gap (0 - 20) 10 BUN (7 - 18 mg/dL) 45 H Creatinine (0.6 - 1.3 mg/dL) 1.2 Glomerular Filtr Rate (90 - 95) 70.1 L Glucose (70 - 110 mg/dL) 247 H POC Glucose (70 - 110 MG/DL) 165 H 209 H 218 H 219 H Calcium (8.0 - 10.5 mg/dL) 7.6 L Phosphorus (2.5 - 4.9 MG/DL) 3.0 Magnesium (1.80 - 2.40 mg/dL) 2.03 Albumin (3.4 - 5.0 g/dL) 1.40 L Hematology WBC (4.5 - 11.0 x10 3/uL) 20.3 H RBC (4.00 - 5.60 x10 6/uL) 2.57 L Hgb (12.5 - 16.9 g/dL) 7.1 L Hct (37.5 - 50.7 %) 20.9 L MCV (81.0 - 99.0 fL) 81.3 MCH (27.0 - 33.0 pg) 27.6 MCHC (33.0 - 37.0 g/dL) 34.0 RDW (11.5 - 14.5 %) 14.3 Plt Count (150 - 400 x10 3/uL) 197 MPV (7.0 - 9.0 fL) 10.2 H Neut % (Auto) (56.0 - 77.0 %) 88.7 H Lymph % (Auto) (14.0 - 32.0 %) 3.8 L Boundary % (Auto) (4.8 - 9.0 %) 3.7 L Eos % (Auto) (0.3 - 3.7 %) 0.0 L Baso % (Auto) (0.0 - 2.0 %) 0.3 Neut # (Auto) (2.0 - 7.6 x10 3/uL) 17.97 H Lymph # (Auto) (1.0 - 3.8 x10 3/uL) 0.76 L Boundary # (Auto) (0.1 - 0.8 x10 3/uL) 0.74 Eos # (Auto) (0.0 - 0.2 x10 3/uL) 0.00 Baso # (Auto) (0.0 - 0.2 x10 3/uL) 0.07 Abs Immat Gran (auto) (0.00 - 0.03 0.71 H x10 3/uL) Add Manual Diff NO Immature Gran % (0.0 - 2.0 %) 3.5 H Nucleated RBC % (0 - 0 %) 0.0 Nucleated RBCs # (Man) (0.0 - 0.1 0.00 x10 3/uL) 08/19 08/19 1622 1601 Chemistry POC Glucose (70 - 110 MG/DL) 232 H Urines Urine Color (YEL/STRAW) YELLOW Urine Appearance (CLEAR) SL CLOUDY Urine pH (5.0 - 7.0) 5.0 Ur Specific [place] (1.005 - 1.030) 1.013 Urine Protein (NEGATIVE) 1+ H Urine Glucose (UA) (NEGATIVE) 3+ H Urine Ketones (NEGATIVE) NEGATIVE Urine Blood (NEGATIVE) 2+ H Urine Nitrite (NEGATIVE) NEGATIVE Urine Bilirubin (NEGATIVE) NEGATIVE Urine Urobilinogen (0.2 - 1.0 mg/dL) 0.2 Ur Leukocyte Esterase (NEGATIVE) 3+ H Urine RBC (0 - 3 RBC/HPF) 4-10 Urine WBC (0 - 3 WBC/HPF) 21-50 H Ur Squamous Epith Cells (NONE SEEN /HPF) 0-5 Urine Bacteria (NONE SEEN /HPF) TRACE Urine Mucus (NONE SEEN /LPF) TRACE Microbiology: Date/Time Procedure - Status Source Growth 08/20 1457 Blood Culture - ORD BLOOD 08/20 1457 Blood Culture - ORD BLOOD 08/19 1709 Blood Culture - ORD BLOOD 08/19 1709 Blood Culture - ORD BLOOD 08/19 1622 Urine Culture - RES URINE Laboratory Tests: 08/19 08/19 08/19 08/19 08/19 1338 1335 1233 1115 1115 Chemistry Sodium (134 - 147 mEq/L) 130 L Potassium (3.4 - 5.0 mEq/L) 3.6 Chloride (100 - 108 mEq/L) 107 Carbon Dioxide (21 - 33 mEq/l) 22 Anion Gap (0 - 20) 5 BUN (7 - 18 mg/dL) 39 H Creatinine (0.6 - 1.3 mg/dL) 1.1 Glomerular Filtr Rate (90 - 95) 77.8 L Glucose (70 - 110 mg/dL) 315 H POC Glucose (70 - 110 MG/DL) 340 H 363 H 326 H Calcium (8.0 - 10.5 mg/dL) 7.6 L Phosphorus (2.5 - 4.9 MG/DL) 2.2 L Magnesium (1.80 - 2.40 mg/dL) 2.06 B-Natriuretic Peptide (0 - 100 PG/ML) 96.0 Albumin (3.4 - 5.0 g/dL) 1.50 L 08/19 08/19 08/19 08/19 0805 0737 0737 0445 Chemistry Sodium (134 - 147 mEq/L) 130 L 130 L Potassium (3.4 - 5.0 mEq/L) 3.3 L 3.0 L Chloride (100 - 108 mEq/L) 103 102 Carbon Dioxide (21 - 33 mEq/l) 20 L 22 Anion Gap (0 - 20) 10 10 BUN (7 - 18 mg/dL) 42 H 43 H Creatinine (0.6 - 1.3 mg/dL) 1.2 1.3 Glomerular Filtr Rate (90 - 95) 70.1 L 63.7 L Glucose (70 - 110 mg/dL) 322 H 359 H POC Glucose (70 - 110 MG/DL) 292 H Calcium (8.0 - 10.5 mg/dL) 8.2 7.7 L Phosphorus (2.5 - 4.9 MG/DL) 2.6 2.9 Magnesium (1.80 - 2.40 mg/dL) 2.13 2.13 Iron (35 - 150 mcg/dL) 8 L TIBC (260 - 445 mcg/dL) 148 L % Saturation (14 - 34 %) 5.4 L Unsat Iron Binding (mcg/dL) 140 Ferritin (23.9 - 336.2 ng/mL) 2429.2 H Total Bilirubin (0.0 - 1.0 mg/dL) 0.60 AST (15 - 37 IUnit/L) 27 ALT (30 - 65 IUnit/L) 13 L Total Alk Phosphatase (20 - 125 IUnit/L) 150 H Total Protein (6.4 - 8.2 g/dL) 5.6 L Albumin (3.4 - 5.0 g/dL) 1.60 L 1.50 L Vitamin B12 (193 - 986 pg/mL) 5883 H Folate (3.1 - 17.5 ng/mL) 9.5 08/19 08/19 08/19 08/19 0340 0332 0330 0101 Chemistry POC Glucose (70 - 110 MG/DL) 332 H 296 H Hemoglobin A1c (4.8 - 6.0 %A1C) > 14.0 H Ionized Calcium Mitzi (1.09 - 1.30 MMOL/L) 1.07 L Hematology WBC (4.5 - 11.0 x10 3/uL) 21.3 H RBC (4.00 - 5.60 x10 6/uL) 2.80 L Hgb (12.5 - 16.9 g/dL) 7.6 L Hct (37.5 - 50.7 %) 22.3 L MCV (81.0 - 99.0 fL) 79.6 L MCH (27.0 - 33.0 pg) 27.1 MCHC (33.0 - 37.0 g/dL) 34.1 RDW (11.5 - 14.5 %) 14.0 Plt Count (150 - 400 x10 3/uL) 227 MPV (7.0 - 9.0 fL) 9.9 H Neut % (Auto) (56.0 - 77.0 %) 89.9 H Lymph % (Auto) (14.0 - 32.0 %) 4.3 L Boundary % (Auto) (4.8 - 9.0 %) 3.1 L Eos % (Auto) (0.3 - 3.7 %) 0.0 L Baso % (Auto) (0.0 - 2.0 %) 0.3 Neut # (Auto) (2.0 - 7.6 x10 3/uL) 19.17 H Lymph # (Auto) (1.0 - 3.8 x10 3/uL) 0.91 L Boundary # (Auto) (0.1 - 0.8 x10 3/uL) 0.67 Eos # (Auto) (0.0 - 0.2 x10 3/uL) 0.01 Baso # (Auto) (0.0 - 0.2 x10 3/uL) 0.07 Abs Immat Gran (auto) (0.00 - 0.03 x10 3/uL) 0. 51 H Add Manual Diff NO Immature Gran % (0.0 - 2.0 %) 2.4 H Nucleated RBC % (0 - 0 %) 0.0 Nucleated RBCs # (Man) (0.0 - 0.1 x10 3/uL) 0.0 0 08/18 08/18 08/18 08/18 2246 2157 1854 1653 Chemistry Sodium (134 - 147 mEq/L) 129 L Potassium (3.4 - 5.0 mEq/L) 3.3 L Chloride (100 - 108 mEq/L) 102 Carbon Dioxide (21 - 33 mEq/l) 20 L Anion Gap (0 - 20) 10 BUN (7 - 18 mg/dL) 44 H Creatinine (0.6 - 1.3 mg/dL) 1.3 Glomerular Filtr Rate (90 - 95) 63.7 L Glucose (70 - 110 mg/dL) 296 H POC Glucose (70 - 110 MG/DL) 265 H 226 H 223 H Calcium (8.0 - 10.5 mg/dL) 7.7 L Phosphorus (2.5 - 4.9 MG/DL) 2.8 Magnesium (1.80 - 2.40 mg/dL) 2.13 Albumin (3.4 - 5.0 g/dL) 1.70 L Microbiology: Date/Time Procedure - Status Source Growth 08/19 1210 Wound Culture - RES ABSCESS 08/19 1210 Anaerobic Culture - RES ABSCESS 08/19 121 Gram Stain - RES ABSCESS Recent Impressions: ULTRASOUND - DUP LE ART UNI/LTD 08/19 0950 Report Impression - Status: SIGNED Entered: 08/19/2022 1056 IMPRESSION: No sonographic evidence for flow-limiting stenos is in the right lower extremity arterial system. Impression By: [email or web address] - Abraham Ross M.D. Laboratory Tests: 08/18 08/18 08/18 08/18 08/18 1430 1430 1404 1309 1203 Chemistry Sodium (134 - 147 mEq/L) 131 L Potassium (3.4 - 5.0 mEq/L) 3.4 Chloride (100 - 108 mEq/L) 101 Carbon Dioxide (21 - 33 mEq/l) 24 Anion Gap (0 - 20) 9 BUN (7 - 18 mg/dL) 58 H Creatinine (0.6 - 1.3 mg/dL) 1.4 H Glomerular Filtr Rate (90 - 95) 58.3 L Glucose (70 - 110 mg/dL) 207 H POC Glucose (70 - 110 MG/DL) 195 H 213 H 201 H Calcium (8.0 - 10.5 mg/dL) 7.8 L Phosphorus (2.5 - 4.9 MG/DL) 2.2 L Magnesium (1.80 - 2.40 mg/dL) 2.09 Albumin (3.4 - 5.0 g/dL) 1.60 L Triglycerides (40 - 150 mg/dL) 161 H Cholesterol (<200 mg/dL) 90 LDL Cholesterol Measurd (0 - 100 mg/dL) 33.0 HDL Cholesterol (32 - 72 mg/dL) < 20.0 L Cholesterol/HDL Ratio (3.43 - 4.97 4.00 RATIO) TSH (0.42 - 5.47) 0.96 Free T4 (0.77 - 1.61 ng/dL) 0.7 L 08/18 08/18 08/18 08/18 08/18 1107 1004 0900 0823 0549 Chemistry POC Glucose (70 - 110 MG/DL) 223 H 304 H 405 H 449 H Hemoglobin A1c (4.8 - 6.0 %A1C) 13.4 H 08/18 08/18 08/18 0549 0305 0207 Blood Gas Puncture Site R Radial O2 Saturation (90 - 100 %) 97.9 ABG pH (7.35 - 7.45) 7.309 L ABG pCO2 (35.0 - 45 mmHg) 22.3 *L ABG pO2 (80 - 100.0 mmHg) 108.0 H ABG PO2/FiO2 Ratio (mm/Hg) 514.28 ABG HCO3 (22.0 - 26.0 MMOL/L) 11.2 *L ABG Total CO2 11.9 ABG Base Excess (-4.0 - 4.0 MMOL/L) -15.1 L Neto Test Positive O2 Delivery Device Room Air FiO2 (%) 21 Chemistry Sodium (134 - 147 mEq/L) 121 *L Potassium (3.4 - 5.0 mEq/L) 4.1 Chloride (100 - 108 mEq/L) 90 L Carbon Dioxide (21 - 33 mEq/l) 15 L Anion Gap (0 - 20) 20 BUN (7 - 18 mg/dL) 62 H Creatinine (0.6 - 1.3 mg/dL) 1.7 H Glomerular Filtr Rate (90 - 95) 46.2 L Glucose (70 - 110 mg/dL) 692 *H Calcium (8.0 - 10.5 mg/dL) 7.5 L Phosphorus (2.5 - 4.9 MG/DL) 4.8 Magnesium (1.80 - 2.40 mg/dL) 2.34 Albumin (3.4 - 5.0 g/dL) 1.60 L Serology Influenza Type A (PCR) (Negative) Negative Influenza Type B (PCR) (Negative) Negative Toxicology Acetone, Quant (Neg - <20 mg/dL) Large - 80-100 mg/dL 08/18 08/18 08/18 0205 0203 0203 Chemistry Sodium (134 - 147 mEq/L) 115 *L Potassium (3.4 - 5.0 mEq/L) 4.4 Chloride (100 - 108 mEq/L) 84 L Carbon Dioxide (21 - 33 mEq/l) 14 L Anion Gap (0 - 20) 21 H BUN (7 - 18 mg/dL) 60 H Creatinine (0.6 - 1.3 mg/dL) 1.9 H Glomerular Filtr Rate (90 - 95) 40.4 L Glucose (70 - 110 mg/dL) 709 *H Lactic Acid (0.4 - 1.9 mmol/L) 1.2 Calcium (8.0 - 10.5 mg/dL) 8.5 Total Bilirubin (0.0 - 1.0 mg/dL) 0.40 Direct Bilirubin (0.0 - 0.30 MG/DL) 0.20 Indirect Bilirubin (MG/DL) 0.20 AST (15 - 37 IUnit/L) 14 L ALT (30 - 65 IUnit/L) 10 L Total Alk Phosphatase (20 - 125 IUnit/L) 157 H Troponin I High Sens (0 - 54 ng/L) 4 Total Protein (6.4 - 8.2 g/dL) 6.4 Albumin (3.4 - 5.0 g/dL) 1.80 L Lipase (13 - 57 U/L) 24 Hematology WBC (4.5 - 11.0 x10 3/uL) 26.5 H RBC (4.00 - 5.60 x10 6/uL) 3.36 L Hgb (12.5 - 16.9 g/dL) 9.0 L Hct (37.5 - 50.7 %) 28.3 L MCV (81.0 - 99.0 fL) 84.2 MCH (27.0 - 33.0 pg) 26.8 L MCHC (33.0 - 37.0 g/dL) 31.8 L RDW (11.5 - 14.5 %) 14.5 Plt Count (150 - 400 x10 3/uL) 355 MPV (7.0 - 9.0 fL) 9.9 H Add Manual Diff YES Seg Neutrophils % (37 - 69 %) 70.0 H Band Neutrophils % (0.0 - 10.0 %) 12.7 H Lymphocytes % (Manual) (23 - 55 %) 3.7 L Monocytes % (Manual) (0 - 10 %) 9.1 Metamyelocytes (0.0 - 0.0 %) 2.7 H Myelocytes (0.0 - 0.0 %) 0.9 H Promyelocytes (0 - 0 %) 0.9 H Platelet Estimate (ADEQUATE THOUSAND) Adequate Plt Morphology Comment NORMAL Polychromasia 3+ Poikilocytosis 3+ Anisocytosis 1+ Macrocytosis 1+ Serology SARS-CoV-2 Ag (Rapid) (Negative) Negative Toxicology Salicylates (0.0 - 20.0 mg/dL) 5.6 Microbiology: Date/Time Procedure - Status Source Growth 08/18 914 Wound Culture - ORD FOOT 08/18 206 Wound Culture - RECD FOOT 03/27 0207 Group A Streptococcus Screen (VERONICA) - COMP THROAT 08/18 020 Streptococcus Culture - COMP THROAT 08/18 020 Blood Culture - RES BLOOD 08/18 020 Blood Culture Gram Stain - RES BLOOD 08/18 020 Blood Culture - RES BLOOD 08/18 020 Blood Culture Gram Stain - RES BLOOD Recent Impressions: RADIOLOGY - XR CHEST 2 V 08/18 0201 Report Impression - Status: SIGNED Entered: 08/18/2022 0317 IMPRESSION: Ill-defined somewhat nodular opacity measuring 3 .2 cm laterally in the right mid lung suspicious for rounded pneumo ro given provided history, but underlying neoplasm can not be excl uded. Followup radiographs are recommended after appropriate tr eatment in order to document complete resolution and exclude an unde rlying process or neoplasm. Impression By: Mark - Dom Adams M.D. RADIOLOGY - XR FOOT 3 + V RT 08/18 0238 Report Impression - Status: SIGNED Entered: 08/18/2022 0358 IMPRESSION: No acute osseous findings. No convincing evidenc e for osteomyelitis. MRI is more sensitive for detecti ng osteomyelitis. Impression By: Ankur Ladd M.D. CAT SCAN - CT ABD PELVIS W/CONT 08/18 0339 Report Impression - Status: SIGNED Entered: 08/18/2022 0546 IMPRESSION: 3.3 cm hypodensity in the left posterior prostat e or seminal vesicle. This could represent an abscess. Contra st-enhanced MRI of the pelvis would be helpful for further evaluati on. No acute intra-abdominal findings otherwise. Impression By: Ankur Ladd M.D. CAT SCAN - CT LOWER EXTRM W/O C RT 08/18 0645 Report Impression - Status: SIGNED Entered: 08/18/2022 0827 IMPRESSION: Extensive soft tissue edema with mottled gas in the subcutaneous and intramuscular compartments of the foot abhishek tible with gas-forming infection. Disease extends into the visualized distal leg. Impression By: Jamel Dorantes M.D. 1. Diabetes mellitus type 2 uncontrolled with co mplications. 2. DKA 3. Cellulitis and gangrene of the right foot. 4. Sepsis 5. Altered mental status 6. High LFTs Blood sugar 212-173 mg/dL.A gap 5 HbA1c 13.4% White count 26.5 Sodium 121. Adjust insulin drip settings Increase mouth feedings Wound care and IV antibiotics. Electronically Signed by Braxton Chapin MD on at 1526 RPT #:[id number] END OF REPORT 2022-08-20 14:54:00-00:[address] [facility] ([facility]) Infectious Dis. Progress Note REPORT#:[id number] REPORT STATUS: Signed DATE:08/20/22 TIME: 145 PATIENT: KARMA ROWLAND UNIT #: [id number] ROOM/BED: [place] [id number] : 63 AGE: 56 SEX: M ATTEND: Mikayla Ramires MD ADM AUTHOR: Anthony Curtis MD * ALL edits or amendments must be made on the [employer]/computer document * Subjective Chief complaint: Follow-up on MRSA bacteremia, right lower extrem ity necrotizing soft tissue infection. HPI: Patient reports feeling better subjectively. Den ies acute or new complaints. No major overnight events. Objective General VS/I O: Vital Signs Date Temp Pulse Resp B/P B/P Mean Pulse Ox FiO2 08/19-08/20 97.7-98.4 66-96 10- 70-141/44-76 54-99 90-100 Last Documented: Result Date Time Pulse Ox 97 08/20 0700 B/P 124/69 08/20 0700 B/P Mean 92 08/20 0700 Pulse 82 08/20 0700 Resp 15 08/20 07 Temp 98.2 08/20 0400 O2 Delivery Nasal cannula 08/19 1419 O2 Flow Rate 2 08/19 1419 Vital Signs: Date Time Temp Pulse Resp B/P B/P Pulse O2 O2 F low FiO2 Mean Ox Delivery Rate 08/20 0700 82 15 124/69 92 97 08/20 0645 80 16 123/66 90 97 08/20 0630 81 17 132/73 98 97 08/20 0615 85 21 141/63 90 95 08/20 0600 80 15 131/75 97 98 08/20 0545 80 12 119/68 88 98 03/29 0530 79 13 132/76 99 99 03/29 0515 75 14 122/69 90 98 03/29 0500 72 13 111/62 81 98 03/29 0445 67 12 94/58 70 96 03/29 0430 68 13 100/60 75 97 03/29 0415 68 12 100/57 73 97 03/29 0400 98.2 03/29 0400 72 12 113/68 86 97 03/29 0345 72 14 106/63 79 98 03/29 0330 72 107/60 78 96 03/29 0315 71 12 111/65 83 97 03/29 0300 73 13 109/64 82 98 03/29 0245 70 13 106/60 77 97 03/29 0230 69 13 93/57 70 97 03/29 0220 69 13 89/54 67 97 03/29 0215 69 14 95/57 71 97 03/29 0210 70 14 96/56 70 96 03/29 0205 70 13 96/58 71 97 03/29 0200 71 13 97/59 74 97 03/29 0155 71 13 96/58 72 98 03/29 0150 73 12 104/58 74 97 03/29 0145 75 15 116/64 85 98 03/29 0140 74 12 108/60 77 96 03/29 0135 75 11 117/67 87 98 03/29 0130 76 13 106/63 80 98 03/29 0125 71 13 101/59 75 98 03/29 0120 72 12 101/60 75 97 03/29 0115 72 13 108/62 80 98 03/29 0110 75 12 113/67 85 99 03/29 0105 74 13 121/68 87 98 03/29 0100 77 15 115/67 86 98 03/29 0055 72 13 107/64 81 98 03/29 0050 80 12 109/62 80 99 03/29 0045 74 11 115/69 88 99 03/29 0040 75 11 112/67 85 100 03/29 0035 73 11 106/62 79 98 03/29 0030 75 14 113/66 85 98 03/29 0025 77 12 115/67 86 99 03/29 0020 74 14 116/65 86 98 03/29 0015 75 13 121/70 91 99 03/29 0010 75 13 112/66 85 98 03/29 0005 75 12 112/65 83 98 03/29 0000 97.7 03/29 0000 77 13 110/64 83 98 03/28 2355 75 12 116/65 85 100 03/28 2350 96 27 105/60 77 98 03/28 2345 75 11 99/58 73 99 03/28 2340 74 13 99/56 72 98 03/28 2335 74 14 102/58 75 99 03/28 2330 72 12 101/56 72 97 03/28 2325 74 16 99/60 74 99 03/28 2320 73 11 97/58 73 98 03/28 2315 73 11 103/60 75 99 03/28 2310 73 16 91/57 70 98 03/28 2305 73 14 95/59 73 99 03/28 2300 73 11 99/60 75 99 03/28 2255 71 12 94/55 71 99 03/28 2250 69 14 86/54 66 98 03/28 2245 70 13 93/57 70 98 03/28 2240 71 13 96/57 71 98 03/28 2235 77 11 101/58 73 99 03/28 2230 70 11 87/52 65 98 03/28 2225 69 12 89/53 66 98 03/28 2220 71 13 88/54 67 97 03/28 2215 70 12 93/58 71 96 03/28 2210 69 11 89/55 67 97 03/28 2205 70 12 94/58 71 98 03/28 2200 72 13 105/61 78 98 03/28 2155 72 11 98/59 74 97 03/28 2150 70 11 93/56 69 97 03/28 2145 73 12 93/56 70 98 03/28 2140 70 11 92/56 69 96 03/28 2135 71 11 98/60 74 96 03/28 2130 75 13 98/57 72 99 03/28 2125 69 13 85/54 65 96 03/28 2120 69 13 88/54 67 97 03/28 2115 70 13 94/56 70 97 03/28 2110 72 12 97/57 72 97 03/28 2105 78 17 102/60 75 97 03/28 2100 69 13 91/55 68 96 03/28 2055 71 12 97/57 72 96 03/28 2050 72 11 100/59 75 97 03/28 2045 98 03/28 2040 72 12 95/58 72 98 03/28 2035 71 13 95/54 68 97 03/28 2029 73 12 102/57 74 97 03/28 2025 75 10 112/57 77 97 03/28 2020 75 13 99/56 73 98 03/28 2015 78 13 101/59 74 97 03/28 2010 77 15 101/59 75 97 03/28 2007 76 14 101/60 76 98 03/28 2005 76 12 97/57 72 97 03/28 1999 98.0 03/28 2000 74 13 93/55 69 98 03/28 1959 74 12 91/52 66 97 03/28 1955 72 13 86/51 64 97 03/28 1950 73 12 83/50 62 96 03/28 1945 73 12 82/49 96 03/28 1940 75 12 87/50 64 97 03/28 1935 76 13 90/50 65 98 03/28 1930 77 12 89/54 67 98 03/28 1925 78 11 106/58 74 98 03/28 1920 81 14 99/54 71 98 03/28 1915 79 13 94/54 68 96 03/28 1910 78 11 87/51 65 97 03/28 1905 79 14 93/63 75 96 03/28 1901 81 15 113/62 75 96 03/28 1840 80 16 129/70 93 97 03/28 1835 80 18 126/62 88 97 03/28 1830 80 16 121/65 87 97 03/28 1825 80 16 137/60 87 97 03/28 1821 80 17 125/59 85 98 03/28 1815 80 15 99/61 75 97 03/28 1810 71 12 94/55 68 97 03/28 1805 68 15 81/52 61 97 03/28 1800 68 15 83/54 64 97 03/28 1755 67 14 80/51 61 95 03/28 1750 66 10 72/45 54 90 03/28 1745 69 15 80/52 62 97 03/28 1740 71 15 80/52 61 96 03/28 1735 71 15 82/52 62 96 03/28 1730 71 14 82/52 62 97 03/28 1725 71 15 78/50 60 97 03/28 1720 73 14 84/54 65 98 03/28 1715 73 16 81/49 61 97 03/28 1710 75 15 77/48 58 97 03/28 1705 75 15 77/49 59 97 03/28 1700 75 16 78/49 59 98 08/19 1655 75 16 70/47 55 97 08/19 1650 75 17 77/50 58 97 08/19 1645 75 17 75/49 58 97 08/19 1640 75 16 75/49 57 97 08/19 1635 75 16 79/46 58 96 08/19 1630 75 15 76/51 59 96 08/19 1625 75 16 75/52 60 96 08/19 1620 77 18 79/50 59 97 08/19 1615 75 15 79/52 62 96 08/19 1610 75 14 77/52 61 96 08/19 1605 75 15 78/50 59 95 08/19 1600 98.4 08/19 1600 76 14 78/51 60 98 08/19 1555 77 17 78/53 61 98 08/19 1550 78 18 78/50 60 97 08/19 1545 77 17 75/47 56 97 08/19 1540 76 18 76/46 56 95 08/19 1535 76 16 75/47 55 97 08/19 1534 79 20 74/44 54 94 08/19 1530 77 16 76/48 57 97 08/19 1525 79 17 85/53 65 97 08/19 1520 82 17 84/55 63 97 08/19 1516 83 17 83/53 64 97 08/19 1511 83 18 81/60 66 95 08/19 1505 83 20 82/50 62 95 08/19 1500 80 18 83/51 63 96 08/19 1455 81 18 86/54 66 96 24 hour I O ending at 0700: 08/20 0700 08/19 1900 Intake Total 1412.10 2437.40 Output Total Balance 1412.10 2437.40 Intake, IV 1412.10 1837.40 Intake, Oral 600 PATIENT WEIGHT: Weight (lb): Weight (oz): Weight (kg): 77.700 Physical Exam General appearance: alert, awake, no acute distr ess Wound/incision: Location: right foot currently dressed Cardiovascular: normal heart sounds, regular rat e rhythm, no murmur Respiratory: clear to auscultation, aerating wel l, symmetric expansion Abdomen: non-tender, soft, no distention Extremities: edema, RLE pitting edema noted 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 Rowland is a 56-year-old male with history of diabetes mellitus type 2, hypertension who was admitted with altered mental status and right-sided foot infection. According to him, he noticed a blister on his right foot around 3 days prior to presentation. His foot got progr essively more swollen and erythema extended proximally to his lateral foot and ankle. Here, patient was tachycardic and had a leukoc ytosis of 26.5. CT abdomen and pelvis with contrast is concerning for possible prostate abscess. CT of lower extremity without contrast shows extensive sof t tissue edema with mottled gas in the subcutaneous and intramuscular compartments of the foot, comp atible with gas-forming infection. Patient's blood cultures have come ba ck positive for MRSA in 2 out of 2 sets. Infectious disease consultation is re quested for antimicrobial recommendations. *MRSA bacteremia *Severe sepsis due to above *Right lower extremity necrotizing fasciitis *DKA *Prostatic mass versus abscess *ERIKA *Hyponatremia *Diabetic neuropathy *Diabetes mellitus type 2 *Hypertension -Afebrile. -Leukocytosis of 22.8 on today's CBC noted. -Hemoglobin A1c >14%. -Initial blood cultures from 08/18/2022 positive for MRSA in 2 out of 2 sets. -Wound culture also positive for Staphylococcus aureus. -TTE 08/18/2022 negative for any obvious vegetat ions. -Went to the OR 08/19/2022 per podiatry for an I D. -Seen by urology for prostat ic mass versus abscess. Plans for pelvic MRI noted. Currently pending. Plan: -Repeat blood cultures x2 today. -Continue to repeat serial blood cultures till b acteremia clears. -Discontinue meropenem. -Continue clindamycin x5 to 7 days total. -Continue vancomycin. -If patient has persistent bacteremia, he might need a JIMENA. -Further recommendations to follow based upon cl inical course. CURRENT ANTIMICROBIALS: Clindamycin + vancomycin, started 08/18/2022 Day 3 Electronically Signed by Anthony Curtis MD on 07/24 02/14 at 1457 RPT #:[id number] END OF REPORT 2022-08-20 13:23:00-00:00 [facility] General Surgery Progress Note REPORT#:[id number] REPORT STATUS: Signed DATE:08/20/22 TIME: 1323 PATIENT: KARMA ROWLAND UNIT #: [id number] ROOM/BED: [facility]-1 : 63 AGE: 56 SEX: M ATTEND: Mikayla Ramires MD ADM AUTHOR: Forrest Oswald MD * ALL edits or amendments must be made on the [employer]/computer document * Subjective Chief complaint: postop HPI: Pt is doing well. No complai nts. Right foot is much better. Denies any leg pain. Patient reports: Yes: feeling better, flatus, pain contro lled, tolerating diet. No: complaints, abdominal pain, ambulating, bowel movement, chest pain, constipation, diarrhea, fever, incisional pain, nausea, pain, shortness of breath, vomiting. Review of Systems Constitutional: Denies: chills, fatigue, fev er, generalized weakness, lethargy, malaise, recent wt loss, other. Skin: Denies: abrasion, bruising, contusion, diaphores is, ecchymosis, itching, laceration, rash, swelling, other. Allergy/Immun: Denies: allergic reaction, anaphylaxis, hives, i tching, rhinorrhea, sneezing, other. Eyes: Denies: redness, discharge, visual loss/blurred, itching, diplopia, eye pain, photophobia, swelling, other. ENT: Denies: ear drainage, ear ringing, earache, hear ing loss, mouth pain, nasal congestion, nose bleeding, sinus problem, sore t hroat, throat pain, throat swelling, tongue pain, tongue swelling, toothach e, voice change, other. Respiratory: Denies: OVIEDO (dyspnea on exertion), hemoptysis, n on productive cough, parox nocturnal dyspnea, pleurisy, pleuritic pain, pneumonia, productive cough (sputum ), SOB, wheezing, other. Cardiovascular: Denies: chest pain, OVIEDO (dyspnea on exer tion), edema, orthopnea, palpitations, parox nocturnal dyspnea, other. GI: Denies: abdominal pain, anorexia, constipation, diarrhea, dysphagia, GERD, hematemesis, hematochezia, h iatal hernia, melena, nausea, rectal pain, vomiting, other. : Denies: dysuria, flank pain, frequency, hematuria, nocturia, penile discharge, penile lesion, testicular pa in, testicular swelling, urgency, urinary retention, other. Objective General VS/I O: Last Documented: Result Date Time Pulse Ox 97 08/20 0700 B/P 124/69 08/20 0700 B/P Mean 92 08/20 0700 Pulse 82 08/20 0700 Resp 15 08/20 0700 Temp 98.2 08/20 0400 O2 Delivery Nasal cannula 08/19 1419 O2 Flow Rate 2 08/19 1419 Vital Signs Date Temp Pulse Resp B/P B/P Mean Pulse Ox FiO2 08/19-08/20 97.7-98.9 66-96 10-30 70-141/44-76 54-99 90-100 24 hour I O ending at 0700: 08/20 0700 08/19 1900 Intake Total 1412.10 2437.40 Output Total Balance 1412.10 2437.40 Intake, IV 1412.10 1837.40 Intake, Oral 600 PATIENT WEIGHT: Weight (lb): Weight (oz): Weight (kg): 77.700 Medications: Active Meds + DC'd Last 24 Hrs Insulin Glargine (Lantus/Semglee) 25 UNIT BEDTIM E SUBQ Insulin Human Lispro (HUMALOG) 0 AC HS SUBQ Insulin Glargine (Lantus/Semglee) 10 UNIT NOW ON E SUBQ (DC) Insulin Glargine (Lantus/Semglee) 15 UNIT BEDTIM E SUBQ (DC) Norepinephrine Bitartrate (NOREPINEPHRINE 8 MG/N S 250 ML) 250 ML TITRATE IV Sodium Chloride (SODIUM CHLORIDE 0.9%) 500 ML B OLUS ONCE ONE IV (DC) Albumin Human (ALBUMINAR 25%) 100 ML Q6H IV (DC) Sodium Chloride (SODIUM CHLORIDE 0.9%) 500 ML BARBARA LINNETTE ONCE ONE IV (DC) Sodium Chloride (SODIUM CHLORIDE 0.9%) 1,000 ML .[id number] IV Dextrose/Water (DEXTROSE 10% IN WATER) 250 ML DIR PRN IV (CKD) Insulin Human Regular (HumuLIN R) 100 UNIT ASDIR IV (DC) Sodium Chloride (SODIUM CHLORIDE 0.9%) 99 ML Diphenhydramine HCl (BENADRYL) 12.5 MG PACU ONCE PRN IV (DC) Fentanyl Citrate (SUBLIMAZE) 100 MCG PACU Q10MIN PRN PRN IV (DC) Fentanyl Citrate (SUBLIMAZE) 50 MCG PACU Q10MIN PRN PRN IV (DC) Hydralazine HCl (APRESOLINE) 5 MG PACU Q10MIN NV N PRN IV (DC) Hydrocodone Bitart/Acetaminophen (NORCO 5/325) 1 TAB PACU ONCE PO (DC) Hydromorphone HCl (DILAUDID) 1 MG PACU Q10MIN NV N PRN IV (DC) Hydromorphone HCl (DILAUDID) 0.5 MG PACU Q5MIN P RN PRN IV (DC) Insulin Human Lispro (HUMALOG) 0 PACU ONCE PRN S UBQ (DC) Labetalol HCl (LABETALOL HCL) 5 MG PACU Q10MIN P RN PRN IV (DC) Meperidine HCl (MEPERIDINE HCL/PF) 12.5 MG PACU ONCE PRN IV (DC) Morphine Sulfate (morphine SULFATE) 2 MG PACU Q1 0MIN PRN PRN IV (DC) Ondansetron HCl (ZOFRAN) 4 MG PACU ONCE PRN IV ( DC) Promethazine HCl (PHENERGAN) 25 MG PACU ONCE PRN PO (DC) Ropivacaine (NAROPIN 0.5% 150 MG/30mL) 150 MG DIR PRN LOCAL (DC) Tramadol HCl (ULTRAM) 50 MG PACU ONCE PO (DC) Dextrose/Water (DEXTROSE 10% IN WATER) 250 ML DIR PRN IV (CKD) Dextrose/Water (Dextrose 10% 1,000 mL) 1,000 ML ASDIR IV Insulin Human Regular (HumuLIN R) 100 UNIT ASDIR IV (DC) Sodium Chloride (SODIUM CHLORIDE 0.9%) 99 ML Vancomycin HCl (VANCOMYCIN HCL) 1,000 MG Q12H IV Sodium Chloride (SODIUM CHLORIDE 0.9%) 250 ML Meropenem (MEROPENEM) 500 MG Q6H IV Sterile Water (WATER FOR INJECTION) 10 ML Dextrose/Water (DEXTROSE 10% IN WATER) 250 ML DIR PRN IV (CKD) Clindamycin Phosphate (CLEOCIN 900 MG/NS 50 ML) 50 ML Q8H IV Famotidine (PEPCID) 20 MG Q12HR IV Acetaminophen (TYLENOL) 650 MG Q6H PRN PRN PO Bisacodyl (DULCOLAX) 10 MG DAILY PRN PRN RECTAL Docusate Sodium (COLACE) 100 MG Q12H PRN PRN PO Hydrocodone Bitart/Acetaminophen (NORCO 5/325) 1 TAB Q4H PRN PRN PO Morphine Sulfate (morphine SULFATE) 2 MG Q4H PRN PRN IV Ondansetron HCl (ZOFRAN) 4 MG Q6H PRN PRN IV Mupirocin (BACTROBAN 2% 22 GM OINTMENT) 1 APPLIC BID NASAL Heparin Sodium (HEPARIN 5000 UNITS/ML) 5,000 UNI T Q8HR SUBQ Dextrose/Water (DEXTROSE 10% IN WATER) 250 ML DIR PRN IV (CKD) Magnesium Sulfate (MAGNESIUM SULFATE 2GM/SWFI 50 ML) 50 ML ASDIR PRN IV Magnesium Sulfate (MAGNESIUM SULFATE 4GM/SWFI 10 0ML) 100 ML ASDIR PRN IV Miscellaneous Information (VANCOMYCIN PHARMACY T O DOSE) 1 EACH ASDIR IV (CKD) Potassium Chloride (POTASSIUM CHLORIDE 20MEQ TAB .ER) 20 MEQ ASDIR PRN PO Potassium Chloride (POTASSIUM CHLORIDE 20MEQ TAB .ER) 40 MEQ ASDIR PRN PO Potassium Chloride (POTASSIUM CHLORIDE 20MEQ TAB .ER) 60 MEQ ASDIR PRN PO (CKD) Potassium Chloride (KCL 20MEQ/SWFI 100ML) 100 ML ASDIR PRN IV Potassium Phosphate (POTASSIUM PHOSPHATE) 15 MM ASDIR PRN IV Sodium Chloride (SODIUM CHLORIDE 0.9%) 250 ML Nutrtion assessment: The data set between the solid lines has been im ported from the dietitian's assessment. BMI Calculated: 27.6 Nutrition related diagnosis: Nutrition diagnosis details: Nutrition problem: Nutrition etiology: Nutrition signs and symptoms: Nutrition prescription: Dietitian name: Assessment completed: Physical Exam General appearance: alert, awake, oriented, no a cute distress, pleasant, conversational, mental status normal, no respira tory distress Wound/incision: Location: right foot. Dressing in place. Nontender along t he lower leg and calf. HEENT: atraumatic, normocephalic Neck: supple/no meningismus Cardiovascular: regular rate and rhythm Chest: normal appearance Respiratory: aerating well Abdomen: non-tender, soft, no distention, no gua rding Extremities: moves all, right foot pain. dressin g in place. 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 x 3, CNII-XII intact, 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 Considered stroke alert: no Skin: normal color, normal temperature, normal t urgor Psychiatry: normal affect, normal judgment/insig ht, normal mood Results Findings/Data: Laboratory Tests 08/20/22 0554: [Embedded Image Not Available] 08/19/22 2310: [Embedded Image Not Available] 08/19/22 1652: [Embedded Image Not Available] Laboratory Tests 08/20 08/20 08/20 08/20 08/20 1107 0756 0647 0554 0454 Chemistry Carbon Dioxide (21 - 33 mEq/l) 20 L BUN (7 - 18 mg/dL) 44 H Creatinine (0.6 - 1.3 mg/dL) 1.2 Glomerular Filtr Rate (90 - 95) 70.1 L Glucose (70 - 110 mg/dL) 212 H POC Glucose (70 - 110 MG/DL) 173 H 192 H 206 H 198 H Calcium (8.0 - 10.5 mg/dL) 7.3 L Ionized Calcium Mitzi (1.09 - 1.30 1.04 L MMOL/L) Phosphorus (2.5 - 4.9 MG/DL) 3.4 Magnesium (1.80 - 2.40 mg/dL) 2.05 Total Bilirubin (0.0 - 1.0 mg/dL) 0.60 AST (15 - 37 IUnit/L) 51 H ALT (30 - 65 IUnit/L) 22 L Total Alk Phosphatase (20 - 125 178 H IUnit/L) Total Protein (6.4 - 8.2 g/dL) 5.7 L Albumin (3.4 - 5.0 g/dL) 2.00 L 08/20 08/20 08/19 08/19 08/19 0259 0101 2352 2322 2310 Chemistry Sodium (134 - 147 mEq/L) 132 L Potassium (3.4 - 5.0 mEq/L) 3.7 Chloride (100 - 108 mEq/L) 107 Carbon Dioxide (21 - 33 mEq/l) 21 Anion Gap (0 - 20) 8 BUN (7 - 18 mg/dL) 41 H Creatinine (0.6 - 1.3 mg/dL) 1.2 Glomerular Filtr Rate (90 - 95) 70.1 L Glucose (70 - 110 mg/dL) 184 H POC Glucose (70 - 110 MG/DL) 195 H 181 H 182 H 191 H Calcium (8.0 - 10.5 mg/dL) 7.1 L Phosphorus (2.5 - 4.9 MG/DL) 3.3 Magnesium (1.80 - 2.40 mg/dL) 2.09 Albumin (3.4 - 5.0 g/dL) 1.70 L 08/19 08/19 08/19 08/19 08/19 2223 2131 2015 1727 1652 Chemistry Sodium (134 - 147 mEq/L) 133 L Potassium (3.4 - 5.0 mEq/L) 3.6 Chloride (100 - 108 mEq/L) 105 Carbon Dioxide (21 - 33 mEq/l) 21 Anion Gap (0 - 20) 10 BUN (7 - 18 mg/dL) 45 H Creatinine (0.6 - 1.3 mg/dL) 1.2 Glomerular Filtr Rate (90 - 95) 70.1 L Glucose (70 - 110 mg/dL) 247 H POC Glucose (70 - 110 MG/DL) 165 H 209 H 218 H 219 H Calcium (8.0 - 10.5 mg/dL) 7.6 L Phosphorus (2.5 - 4.9 MG/DL) 3.0 Magnesium (1.80 - 2.40 mg/dL) 2.03 Albumin (3.4 - 5.0 g/dL) 1.40 L 08/19 08/19 08/19 08/19 1601 1451 1338 1335 Chemistry POC Glucose (70 - 110 MG/DL) 232 H 307 H 340 H 363 H Laboratory Tests 08/20 08/19 08/19 0554 2310 1652 Hematology WBC (4.5 - 11.0 x10 3/uL) 22.8 H 20.3 H RBC (4.00 - 5.60 x10 6/uL) 2.63 L 2.57 L Hgb (12.5 - 16.9 g/dL) 7.1 L 7.0 L 7.1 L Hct (37.5 - 50.7 %) 21.3 L 21.8 L 20.9 L MCV (81.0 - 99.0 fL) 81.0 81.3 MCH (27.0 - 33.0 pg) 27.0 27.6 MCHC (33.0 - 37.0 g/dL) 33.3 34.0 RDW (11.5 - 14.5 %) 14.7 H 14.3 Plt Count (150 - 400 x10 3/uL) 190 197 MPV (7.0 - 9.0 fL) 10.0 H 10.2 H Neut % (Auto) (56.0 - 77.0 %) 87.2 H 88.7 H Lymph % (Auto) (14.0 - 32.0 %) 4.8 L 3.8 L Boundary % (Auto) (4.8 - 9.0 %) 2.9 L 3.7 L Eos % (Auto) (0.3 - 3.7 %) 0.0 L 0.0 L Baso % (Auto) (0.0 - 2.0 %) 0.2 0.3 Neut # (Auto) (2.0 - 7.6 x10 3/uL) 19.90 H 17.9 7 H Lymph # (Auto) (1.0 - 3.8 x10 3/uL) 1.10 0.76 L Boundary # (Auto) (0.1 - 0.8 x10 3/uL) 0.66 0.74 Eos # (Auto) (0.0 - 0.2 x10 3/uL) 0.00 0.00 Baso # (Auto) (0.0 - 0.2 x10 3/uL) 0.04 0.07 Abs Immat Gran (auto) (0.00 - 0.03 x10 3/uL) 1. 12 H 0.71 H Add Manual Diff NO NO Immature Gran % (0.0 - 2.0 %) 4.9 H 3.5 H Nucleated RBC % (0 - 0 %) 0.0 0.0 Nucleated RBCs # (Man) (0.0 - 0.1 x10 3/uL) 0.0 0 0.00 Laboratory Tests 08/19 1622 Urines Urine Color (YEL/STRAW) YELLOW Urine Appearance (CLEAR) SL CLOUDY Urine pH (5.0 - 7.0) 5.0 Ur Specific [place] (1.005 - 1.030) 1.013 Urine Protein (NEGATIVE) 1+ H Urine Glucose (UA) (NEGATIVE) 3+ H Urine Ketones (NEGATIVE) NEGATIVE Urine Blood (NEGATIVE) 2+ H Urine Nitrite (NEGATIVE) NEGATIVE Urine Bilirubin (NEGATIVE) NEGATIVE Urine Urobilinogen (0.2 - 1.0 mg/dL) 0.2 Ur Leukocyte Esterase (NEGATIVE) 3+ H Urine RBC (0 - 3 RBC/HPF) 4-10 Urine WBC (0 - 3 WBC/HPF) 21-50 H Ur Squamous Epith Cells (NONE SEEN /HPF) 0-5 Urine Bacteria (NONE SEEN /HPF) TRACE Urine Mucus (NONE SEEN /LPF) TRACE Diagnosis, Assessment Plan Problem List/A P: 1. Right foot infection Free Text A P: Doing well. Continue current care. Leg is ok. No indications for surgery. Continue current care. at 1325 RPT #:[id number] END OF REPORT 2022-08-20 10:53:00-00:00 [facility] Hospitalist Progress Note REPORT#:[id number] REPORT STATUS: Signed DATE:08/20/22 TIME: 1053 PATIENT: KARMA ROWLAND UNIT #: [id number] ROOM/BED: [facility] : 63 AGE: 56 SEX: M ATTEND: Mikayla Ramires MD ADM AUTHOR: Wilbert Ramires MD * ALL edits or amendments must be made on the [employer]/computer document * Subjective Chief complaint: AMS and right foot infection. doing ok. not much pain. s/p extensive debridement. remains on insulin drip. Review of Systems All systems rev neg: except as noted Objective General VS/I O: Vital Signs: Date Time Temp Pulse Resp B/P B/P Pulse O2 O2 F low FiO2 Mean Ox Delivery Rate 03/ 0700 82 15 124/69 92 97 03/29 0645 80 16 123/66 90 97 03/29 0630 81 17 132/73 98 97 03/29 0615 85 21 141/63 90 95 03/29 0600 80 15 131/75 97 98 03/29 0545 80 12 119/68 88 98 03/29 0530 79 13 132/76 99 99 03/29 0515 75 14 122/69 90 98 03/29 0500 72 13 111/62 81 98 03/29 0445 67 12 94/58 70 96 03/29 0430 68 13 100/60 75 97 03/29 0415 68 12 100/57 73 97 03/29 0400 98.2 03/ 0400 72 12 113/68 86 97 03/29 0345 72 14 106/63 79 98 03/29 0330 72 107/60 78 96 03/29 0315 71 12 111/65 83 97 03/29 0300 73 13 109/64 82 98 03/29 0245 70 13 106/60 77 97 03/29 0230 69 13 93/57 70 97 03/29 0220 69 13 89/54 67 97 03/29 0215 69 14 95/57 71 97 03/29 0210 70 14 96/56 70 96 03/29 0205 70 13 96/58 71 97 03/29 0200 71 13 97/59 74 97 03/29 0155 71 13 96/58 72 98 03/29 0150 73 12 104/58 74 97 03/29 0145 75 15 116/64 85 98 03/29 0140 74 12 108/60 77 96 03/29 0135 75 11 117/67 87 98 03/29 0130 76 13 106/63 80 98 03/29 0125 71 13 101/59 75 98 03/29 0120 72 12 101/60 75 97 03/29 0115 72 13 108/62 80 98 03/29 0110 75 12 113/67 85 99 03/29 0105 74 13 121/68 87 98 03/29 0100 77 15 115/67 86 98 03/29 0055 72 13 107/64 81 98 03/29 0050 80 12 109/62 80 99 03/29 0045 74 11 115/69 88 99 03/29 0040 75 11 112/67 85 100 03/29 0035 73 11 106/62 79 98 03/29 0030 75 14 113/66 85 98 03/29 0025 77 12 115/67 86 99 03/29 0020 74 14 116/65 86 98 03/29 0015 75 13 121/70 91 99 03/29 0010 75 13 112/66 85 98 03/29 0005 75 12 112/65 83 98 03/29 0000 97.7 03/ 0000 77 13 110/64 83 98 03/28 2355 75 12 116/65 85 100 03/28 2350 96 27 105/60 77 98 03/28 2345 75 11 99/58 73 99 03/28 2340 74 13 99/56 72 98 03/28 2335 74 14 102/58 75 99 03/28 2330 72 12 101/56 72 97 03/28 2325 74 16 99/60 74 99 03/28 2320 73 11 97/58 73 98 03/28 2315 73 11 103/60 75 99 03/28 2310 73 16 91/57 70 98 03/28 2305 73 14 95/59 73 99 03/28 2300 73 11 99/60 75 99 03/28 2255 71 12 94/55 71 99 03/28 2250 69 14 86/54 66 98 03/28 2245 70 13 93/57 70 98 03/28 2240 71 13 96/57 71 98 03/28 2235 77 11 101/58 73 99 03/28 2230 70 11 87/52 65 98 03/28 2225 69 12 89/53 66 98 03/28 2220 71 13 88/54 67 97 03/28 2215 70 12 93/58 71 96 03/28 2210 69 11 89/55 67 97 03/28 2205 70 12 94/58 71 98 03/28 2200 72 13 105/61 78 98 03/28 2155 72 11 98/59 74 97 03/28 2150 70 11 93/56 69 97 03/28 2145 73 12 93/56 70 98 03/28 2140 70 11 92/56 69 96 03/28 2135 71 11 98/60 74 96 03/28 2130 75 13 98/57 72 99 03/28 2125 69 13 85/54 65 96 03/28 2120 69 13 88/54 67 97 03/28 2115 70 13 94/56 70 97 03/28 2110 72 12 97/57 72 97 03/28 2105 78 17 102/60 75 97 03/28 2100 69 13 91/55 68 96 03/28 2055 71 12 97/57 72 96 03/28 2050 72 11 100/59 75 97 03/28 2045 98 03/28 2040 72 12 95/58 72 98 03/28 2035 71 13 95/54 68 97 03/28 2030 73 12 102/57 74 97 03/28 2025 75 10 112/57 77 97 03/28 2020 75 13 99/56 73 98 03/28 2015 78 13 101/59 74 97 03/28 2010 77 15 101/59 75 97 03/28 2007 76 14 101/60 76 98 03/28 2005 76 12 97/57 72 97 03/28 1999 98.0 03/28 2000 74 13 93/55 69 98 03/28 1959 74 12 91/52 66 97 03/28 1955 72 13 86/51 64 97 03/28 1950 73 12 83/50 62 96 03/28 1945 73 12 82/49 96 03/28 1940 75 12 87/50 64 97 03/28 1935 76 13 90/50 65 98 03/28 1930 77 12 89/54 67 98 03/28 1925 78 11 106/58 74 98 03/28 1920 81 14 99/54 71 98 03/28 1915 79 13 94/54 68 96 03/28 1910 78 11 87/51 65 97 03/28 1905 79 14 93/63 75 96 03/28 1901 81 15 113/62 75 96 03/28 1840 80 16 129/70 93 97 03/28 1835 80 18 126/62 88 97 03/28 1830 80 16 121/65 87 97 03/28 1825 80 16 137/60 87 97 03/28 1821 80 17 125/59 85 98 03/28 1815 80 15 99/61 75 97 03/28 1810 71 12 94/55 68 97 03/28 1805 68 15 81/52 61 97 03/28 1800 68 15 83/54 64 97 03/28 1755 67 14 80/51 61 95 03/28 1750 66 10 72/45 54 90 03/28 1745 69 15 80/52 62 97 03/28 1740 71 15 80/52 61 96 03/28 1735 71 15 82/52 62 96 03/28 1730 71 14 82/52 62 97 03/28 1725 71 15 78/50 60 97 03/28 1720 73 14 84/54 65 98 03/28 1715 73 16 81/49 61 97 03/28 1710 75 15 77/48 58 97 03/28 1705 75 15 77/49 59 97 03/28 1700 75 16 78/49 59 98 03/28 1655 75 16 70/47 55 97 03/28 1650 75 17 77/50 58 97 03/28 1645 75 17 75/49 58 97 03/28 1640 75 16 75/49 57 97 03/28 1635 75 16 79/46 58 96 03/28 1630 75 15 76/51 59 96 03/28 1625 75 16 75/52 60 96 03/28 1620 77 18 79/50 59 97 03/28 1615 75 15 79/52 62 96 03/28 1610 75 14 77/52 61 96 03/28 1605 75 15 78/50 59 95 03/28 1600 98.4 03/28 1600 76 14 78/51 60 98 03/28 1555 77 17 78/53 61 98 03/28 1550 78 18 78/50 60 97 03/28 1545 77 17 75/47 56 97 03/28 1540 76 18 76/46 56 95 03/28 1535 76 16 75/47 55 97 03/28 1534 79 20 74/44 54 94 03/28 1530 77 16 76/48 57 97 03/28 1525 79 17 85/53 65 97 03/28 1520 82 17 84/55 63 97 03/28 1516 83 17 83/53 64 97 03/28 1511 83 18 81/60 66 95 03/28 1505 83 20 82/50 62 95 03/28 1500 80 18 83/51 63 96 03/28 1455 81 18 86/54 66 96 03/28 1450 82 14 87/50 63 96 03/28 1445 82 17 88/50 64 96 03/28 1440 82 16 85/54 65 96 03/28 1435 82 16 88/51 65 96 03/28 1430 84 16 89/54 68 96 08/19 1425 84 19 97/52 71 96 08/19 1420 85 19 99/56 74 95 08/19 1419 Nasal 2 cannula 08/19 1415 85 16 94/52 66 95 08/19 1410 85 16 94/50 67 95 08/19 1405 84 30 88/52 64 98 08/19 1400 83 18 91/51 66 98 08/19 1356 84 15 95/53 69 98 08/19 1355 84 98/55 72 99 03 1350 86 15 105/57 75 98 08/19 1340 98.9 81 15 101/55 72 98 Nasal 2 cannula 08/19 1335 81 18 94/52 66 98 08/19 1330 81 16 93/51 67 98 08/19 1325 79 16 83/53 64 98 08/19 1322 Simple 8 mask 08/19 1320 83 17 106/54 77 98 08/19 1315 84 18 104/57 78 99 08/19 1310 84 15 102/56 73 99 08/19 1305 83 15 96/54 70 99 08/19 1300 84 14 94/52 68 98 08/19 1255 81 15 90/50 64 95 08/19 1255 81 15 90/50 95 08/19 1251 82 18 91/51 64 100 08/19 1250 81 18 90/50 63 100 08/19 1245 81 16 90/55 68 100 08/19 1240 82 16 92/55 68 100 08/19 1240 82 16 92/55 100 Nasal 2 cannula 08/19 1239 82 15 91/50 64 100 08/19 1235 83 16 100 Nasal 2 cannula 08/19 1230 84 16 94/51 66 100 Nasal 2 cannula 08/19 1226 87 15 103/58 77 100 08/19 1225 86 15 100 Nasal 2 cannula 08/19 1220 87 14 100 Simple 6 mask 08/19 1215 87 16 107/55 75 100 Simple 8 mask 08/19 1210 88 16 100 Simple 8 mask 08/19 1209 99.9 90 19 107/55 78 100 Simple 8 mask 08/19 1100 101 18 103/56 76 95 24 hour I O ending at 0700: 08/20 0700 08/19 1900 Intake Total 1412.10 2437.40 Output Total Balance 1412.10 2437.40 Intake, IV 1412.10 1837.40 Intake, Oral 600 PATIENT WEIGHT: Weight (lb): Weight (oz): Weight (kg): 77.700 Medications: Active Meds + DC'd Last 24 Hrs Insulin Glargine (Lantus/Semglee) 25 UNIT BEDTIM E SUBQ Insulin Human Lispro (HUMALOG) 0 AC HS SUBQ Insulin Glargine (Lantus/Semglee) 10 UNIT NOW ON E SUBQ (DC) Insulin Glargine (Lantus/Semglee) 15 UNIT BEDTIM E SUBQ (DC) Norepinephrine Bitartrate (NOREPINEPHRINE 8 MG/N S 250 ML) 250 ML TITRATE IV Sodium Chloride (SODIUM CHLORIDE 0.9%) 500 ML BARBARA LINNETTE ONCE ONE IV (DC) Albumin Human (ALBUMINAR 25%) 100 ML Q6H IV (DC) Sodium Chloride (SODIUM CHLORIDE 0.9%) 500 ML BARBARA LINNETTE ONCE ONE IV (DC) Sodium Chloride (SODIUM CHLORIDE 0.9%) 1,000 ML .[id number] IV Dextrose/Water (DEXTROSE 10% IN WATER) 250 ML DIR PRN IV (CKD) Insulin Human Regular (HumuLIN R) 100 UNIT ASDIR IV (DC) Sodium Chloride (SODIUM CHLORIDE 0.9%) 99 ML Insulin Human Regular (HUMAN INSULIN REG) 10 UNI TS ONCE ONE IV (DC) Diphenhydramine HCl (BENADRYL) 12.5 MG PACU ONCE PRN IV (DC) Fentanyl Citrate (SUBLIMAZE) 100 MCG PACU Q10MIN PRN PRN IV (DC) Fentanyl Citrate (SUBLIMAZE) 50 MCG PACU Q10MIN PRN PRN IV (DC) Hydralazine HCl (APRESOLINE) 5 MG PACU Q10MIN NV N PRN IV (DC) Hydrocodone Bitart/Acetaminophen (NORCO 5/325) 1 TAB PACU ONCE PO (DC) Hydromorphone HCl (DILAUDID) 1 MG PACU Q10MIN NV N PRN IV (DC) Hydromorphone HCl (DILAUDID) 0.5 MG PACU Q5MIN P RN PRN IV (DC) Insulin Human Lispro (HUMALOG) 0 PACU ONCE PRN S UBQ (DC) Labetalol HCl (LABETALOL HCL) 5 MG PACU Q10MIN P RN PRN IV (DC) Meperidine HCl (MEPERIDINE HCL/PF) 12.5 MG PACU ONCE PRN IV (DC) Morphine Sulfate (morphine SULFATE) 2 MG PACU Q1 0MIN PRN PRN IV (DC) Ondansetron HCl (ZOFRAN) 4 MG PACU ONCE PRN IV ( DC) Promethazine HCl (PHENERGAN) 25 MG PACU ONCE PRN PO (DC) Ropivacaine (NAROPIN 0.5% 150 MG/30mL) 150 MG DIR PRN LOCAL (DC) Tramadol HCl (ULTRAM) 50 MG PACU ONCE PO (DC) Phenylephrine HCl (YENNY-SYNEPHRINE 10MG/ML AMP) 0 .STK-MED ONE .ROUTE (DC ) Acetaminophen (TYLENOL) 650 MG ONCE ONE RECTAL ( DC) Dextrose/Water (DEXTROSE 10% IN WATER) 250 ML DIR PRN IV (CKD) Dextrose/Water (Dextrose 10% 1,000 mL) 1,000 ML ASDIR IV Insulin Human Regular (HumuLIN R) 100 UNIT ASDIR IV (DC) Sodium Chloride (SODIUM CHLORIDE 0.9%) 99 ML Vancomycin HCl (VANCOMYCIN HCL) 1,000 MG Q12H IV Sodium Chloride (SODIUM CHLORIDE 0.9%) 250 ML Meropenem (MEROPENEM) 500 MG Q6H IV Sterile Water (WATER FOR INJECTION) 10 ML Dextrose/Water (DEXTROSE 10% IN WATER) 250 ML DIR PRN IV (CKD) Clindamycin Phosphate (CLEOCIN 900 MG/NS 50 ML) 50 ML Q8H IV Famotidine (PEPCID) 20 MG Q12HR IV Acetaminophen (TYLENOL) 650 MG Q6H PRN PRN PO Bisacodyl (DULCOLAX) 10 MG DAILY PRN PRN RECTAL Docusate Sodium (COLACE) 100 MG Q12H PRN PRN PO Hydrocodone Bitart/Acetaminophen (NORCO 5/325) 1 TAB Q4H PRN PRN PO Morphine Sulfate (morphine SULFATE) 2 MG Q4H PRN PRN IV Ondansetron HCl (ZOFRAN) 4 MG Q6H PRN PRN IV Mupirocin (BACTROBAN 2% 22 GM OINTMENT) 1 APPLIC BID NASAL Heparin Sodium (HEPARIN 5000 UNITS/ML) 5,000 UNI T Q8HR SUBQ Dextrose/Water (DEXTROSE 10% IN WATER) 250 ML DIR PRN IV (CKD) Magnesium Sulfate (MAGNESIUM SULFATE 2GM/SWFI 50 ML) 50 ML ASDIR PRN IV Magnesium Sulfate (MAGNESIUM SULFATE 4GM/SWFI 10 0ML) 100 ML ASDIR PRN IV Miscellaneous Information (VANCOMYCIN PHARMACY T O DOSE) 1 EACH ASDIR IV (CKD) Potassium Chloride (POTASSIUM CHLORIDE 20MEQ TAB .ER) 20 MEQ ASDIR PRN PO Potassium Chloride (POTASSIUM CHLORIDE 20MEQ TAB .ER) 40 MEQ ASDIR PRN PO Potassium Chloride (POTASSIUM CHLORIDE 20MEQ TAB .ER) 60 MEQ ASDIR PRN PO (CKD) Potassium Chloride (KCL 20MEQ/SWFI 100ML) 100 ML ASDIR PRN IV Potassium Phosphate (POTASSIUM PHOSPHATE) 15 MM ASDIR PRN IV Sodium Chloride (SODIUM CHLORIDE 0.9%) 250 ML Physical Exam General appearance: alert, awake, oriented Head/Eyes: normocephalic ENT: moist mucosal membranes Neck: no JVD Cardiovascular: regular rate rhythm, no heave Respiratory: aerating well, clear to auscultatio n, symmetric expansion, no distress Abdomen: non-tender, normal bowel sounds, soft, no distention Genitourinary: no bladder distention Extremities: right foot markedly swollen with violacous disoloratoin of dorsum and lateral area extending t o ankle. There were blisters with some blisters were open. 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 X 3, 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 Considered stroke alert: no Skin: no rash Psychiatry: normal affect, normal judgment/insig ht, normal mood Results Findings/Data: Laboratory Tests 08/20 08/20 08/20 08/20 08/20 0756 0647 0554 0454 0259 Chemistry Carbon Dioxide (21 - 33 mEq/l) 20 L BUN (7 - 18 mg/dL) 44 H Creatinine (0.6 - 1.3 mg/dL) 1.2 Glomerular Filtr Rate (90 - 95) 70.1 L Glucose (70 - 110 mg/dL) 212 H POC Glucose (70 - 110 MG/DL) 192 H 206 H 198 H 195 H Calcium (8.0 - 10.5 mg/dL) 7.3 L Ionized Calcium Mitzi (1.09 - 1.30 MMOL/L) 1.04 L Phosphorus (2.5 - 4.9 MG/DL) 3.4 Magnesium (1.80 - 2.40 mg/dL) 2.05 Total Bilirubin (0.0 - 1.0 mg/dL) 0.60 AST (15 - 37 IUnit/L) 51 H ALT (30 - 65 IUnit/L) 22 L Total Alk Phosphatase (20 - 125 IUnit/L) 178 H Total Protein (6.4 - 8.2 g/dL) 5.7 L Albumin (3.4 - 5.0 g/dL) 2.00 L 08/20 08/19 08/19 08/19 08/19 0101 2352 2322 2310 2223 Chemistry Sodium (134 - 147 mEq/L) 132 L Potassium (3.4 - 5.0 mEq/L) 3.7 Chloride (100 - 108 mEq/L) 107 Carbon Dioxide (21 - 33 mEq/l) 21 Anion Gap (0 - 20) 8 BUN (7 - 18 mg/dL) 41 H Creatinine (0.6 - 1.3 mg/dL) 1.2 Glomerular Filtr Rate (90 - 95) 70.1 L Glucose (70 - 110 mg/dL) 184 H POC Glucose (70 - 110 MG/DL) 181 H 182 H 191 H 165 H Calcium (8.0 - 10.5 mg/dL) 7.1 L Phosphorus (2.5 - 4.9 MG/DL) 3.3 Magnesium (1.80 - 2.40 mg/dL) 2.09 Albumin (3.4 - 5.0 g/dL) 1.70 L 08/19 1727 1652 1601 Chemistry Sodium (134 - 147 mEq/L) 133 L Potassium (3.4 - 5.0 mEq/L) 3.6 Chloride (100 - 108 mEq/L) 105 Carbon Dioxide (21 - 33 mEq/l) 21 Anion Gap (0 - 20) 10 BUN (7 - 18 mg/dL) 45 H Creatinine (0.6 - 1.3 mg/dL) 1.2 Glomerular Filtr Rate (90 - 95) 70.1 L Glucose (70 - 110 mg/dL) 247 H POC Glucose (70 - 110 MG/DL) 209 H 218 H 219 H 232 H Calcium (8.0 - 10.5 mg/dL) 7.6 L Phosphorus (2.5 - 4.9 MG/DL) 3.0 Magnesium (1.80 - 2.40 mg/dL) 2.03 Albumin (3.4 - 5.0 g/dL) 1.40 L 08/19 08/19 08/19 08/19 08/19 1451 1338 1335 1233 1115 Chemistry POC Glucose (70 - 110 MG/DL) 307 H 340 H 363 H 326 H B-Natriuretic Peptide (0 - 100 PG/ML) 96.0 08/19 1115 Chemistry Sodium (134 - 147 mEq/L) 130 L Potassium (3.4 - 5.0 mEq/L) 3.6 Chloride (100 - 108 mEq/L) 107 Carbon Dioxide (21 - 33 mEq/l) 22 Anion Gap (0 - 20) 5 BUN (7 - 18 mg/dL) 39 H Creatinine (0.6 - 1.3 mg/dL) 1.1 Glomerular Filtr Rate (90 - 95) 77.8 L Glucose (70 - 110 mg/dL) 315 H Calcium (8.0 - 10.5 mg/dL) 7.6 L Phosphorus (2.5 - 4.9 MG/DL) 2.2 L Magnesium (1.80 - 2.40 mg/dL) 2.06 Albumin (3.4 - 5.0 g/dL) 1.50 L Laboratory Tests 08/20 08/19 08/19 0554 2310 1652 Hematology WBC (4.5 - 11.0 x10 3/uL) 22.8 H 20.3 H RBC (4.00 - 5.60 x10 6/uL) 2.63 L 2.57 L Hgb (12.5 - 16.9 g/dL) 7.1 L 7.0 L 7.1 L Hct (37.5 - 50.7 %) 21.3 L 21.8 L 20.9 L MCV (81.0 - 99.0 fL) 81.0 81.3 MCH (27.0 - 33.0 pg) 27.0 27.6 MCHC (33.0 - 37.0 g/dL) 33.3 34.0 RDW (11.5 - 14.5 %) 14.7 H 14.3 Plt Count (150 - 400 x10 3/uL) 190 197 MPV (7.0 - 9.0 fL) 10.0 H 10.2 H Neut % (Auto) (56.0 - 77.0 %) 88.7 H Lymph % (Auto) (14.0 - 32.0 %) 3.8 L Boundary % (Auto) (4.8 - 9.0 %) 3.7 L Eos % (Auto) (0.3 - 3.7 %) 0.0 L Baso % (Auto) (0.0 - 2.0 %) 0.3 Neut # (Auto) (2.0 - 7.6 x10 3/uL) 17.97 H Lymph # (Auto) (1.0 - 3.8 x10 3/uL) 0.76 L Boundary # (Auto) (0.1 - 0.8 x10 3/uL) 0.74 Eos # (Auto) (0.0 - 0.2 x10 3/uL) 0.00 Baso # (Auto) (0.0 - 0.2 x10 3/uL) 0.07 Abs Immat Gran (auto) (0.00 - 0.03 x10 3/uL) 0. 71 H Add Manual Diff NO Immature Gran % (0.0 - 2.0 %) 3.5 H Nucleated RBC % (0 - 0 %) 0.0 Nucleated RBCs # (Man) (0.0 - 0.1 x10 3/uL) 0.0 0 Laboratory Tests 08/19 1622 Urines Urine Color (YEL/STRAW) YELLOW Urine Appearance (CLEAR) SL CLOUDY Urine pH (5.0 - 7.0) 5.0 Ur Specific [place] (1.005 - 1.030) 1.013 Urine Protein (NEGATIVE) 1+ H Urine Glucose (UA) (NEGATIVE) 3+ H Urine Ketones (NEGATIVE) NEGATIVE Urine Blood (NEGATIVE) 2+ H Urine Nitrite (NEGATIVE) NEGATIVE Urine Bilirubin (NEGATIVE) NEGATIVE Urine Urobilinogen (0.2 - 1.0 mg/dL) 0.2 Ur Leukocyte Esterase (NEGATIVE) 3+ H Urine RBC (0 - 3 RBC/HPF) 4-10 Urine WBC (0 - 3 WBC/HPF) 21-50 H Ur Squamous Epith Cells (NONE SEEN /HPF) 0-5 Urine Bacteria (NONE SEEN /HPF) TRACE Urine Mucus (NONE SEEN /LPF) TRACE Diagnosis, Assessment Plan Free Text DxA P Notes Free text DxA P notes: DKA DM 2, poorly controlled severe gas gangrene, right foot/necrotizing fasc itis MRSA bacteremia ERIKA severe hyponatremia likely due to combination of severe hyperglycemia and dehydration from DKA sepsis due to foot infection DM neuropathy HTN anemia, acute due to blood loss Plans: - admit to ICU - continue IV fluids aggressively - monitor lytes and AG - IV insulin drip for now until gap closes - endo eval - keep on Vancomycin and Zosyn - podiatry eval - d.w Wojciech Hernandez - likely will need debridement - MRI of foot ordered - endo eval for management of DM. - HgbA1c of 13.4 - Urology consulted for hypodensity in prostate - ? abscess, not likely. not much symptoms - lovenox for VTE - check iron panel, TSH - fall precautions - not much pain needs likely due to neuropathy 08/19/2022 - blood cultures showing MRSA - Echo ordered - continue Vancomycin/Clinda and Meropenem. Id following - podiatry planning for I D today. Surgery on s tandby if needed to further debride his lower leg vs amputation. - WBC improving - will type and cross for blood and transfuse i f less than 7 gms - d.w at bedside - patient and is aware that he may require amputation if his tissues are non viable - remains on Insulin drip. blood sugars in the 200-300 range. AG has closed. endocrine is following. - keep in ICU 08/20/2022 - s/p extensive I D of right foot. - tissue cx showing MRSA - follow echo results - WBC remains elevated - continue IV antibiotics - MRI of pelvis pending to eval prostate lesion - MRI of foot pending to eval for osteo. - wean off insulin drip. Subq insulin and slidi ng scale. endo following - pain controlled - will likely need wound vac and half-way IV a ntibiotic therapy - d/w at bedside - PT/OT Electronically Signed by Wilbert Ramires MD on at 1057 RPT #:[id number] END OF REPORT 2022-08-19 20:38:00-00:[address] [facility] ([facility]) Cardiology Progress Note REPORT#:[id number] REPORT STATUS: Signed DATE:08/19/22 TIME: 2037 PATIENT: KARMA ROWLAND UNIT #: [id number] ROOM/BED: [facility] : 61 AGE: 56 SEX: M ATTEND: Mikayla Ramires MD ADM AUTHOR: Gianni Parham MD * ALL edits or amendments must be made on the el [employer] document * Subjective Chief complaint: foot infection Comments: Status post surgery today, feeling better Telemetry: Sinus rhythm Objective General VS/I O: 24 hour I O ending at 0700: 08/19 0700 08/18 1900 Intake Total 3418.00 Output Total 1600 Balance 1818.00 Intake, IV 2818.00 Intake, Oral 600 Output, Urine 1600 Vital Signs: Date Time Temp Pulse Resp B/P B/P Pulse O2 O2 F low FiO2 Mean Ox Delivery Rate 08/19 1840 80 16 129/70 93 97 08/19 1835 80 18 126/62 88 97 08/19 1830 80 16 121/65 87 97 08/19 1825 80 16 137/60 87 97 08/19 1821 80 17 125/59 85 98 08/19 1815 80 15 99/61 75 97 08/19 1810 71 12 94/55 68 97 08/19 1805 68 15 81/52 61 97 08/19 1800 68 15 83/54 64 97 08/19 1755 67 14 80/51 61 95 08/19 1750 66 10 72/45 54 90 08/19 1745 69 15 80/52 62 97 08/19 1740 71 15 80/52 61 96 08/19 1735 71 15 82/52 62 96 08/19 1730 71 14 82/52 62 97 08/19 1725 71 15 78/50 60 97 08/19 1720 73 14 84/54 65 98 08/19 1715 73 16 81/49 61 97 08/19 1710 75 15 77/48 58 97 08/19 1705 75 15 77/49 59 97 08/19 1700 75 16 78/49 59 98 08/19 1655 75 16 70/47 55 97 08/19 1650 75 17 77/50 58 97 08/19 1645 75 17 75/49 58 97 08/19 1640 75 16 75/49 57 97 08/19 1635 75 16 79/46 58 96 03/28 1630 75 15 76/51 59 96 03/28 1625 75 16 75/52 60 96 03/28 1620 77 18 79/50 59 97 03/28 1615 75 15 79/52 62 96 03/28 1610 75 14 77/52 61 96 03/28 1605 75 15 78/50 59 95 03/28 1600 98.4 03/28 1600 76 14 78/51 60 98 03/28 1555 77 17 78/53 61 98 03/28 1550 78 18 78/50 60 97 03/28 1545 77 17 75/47 56 97 03/28 1540 76 18 76/46 56 95 03/28 1535 76 16 75/47 55 97 03/28 1534 79 20 74/44 54 94 03/28 1530 77 16 76/48 57 97 03/28 1525 79 17 85/53 65 97 03/28 1520 82 17 84/55 63 97 03/28 1516 83 17 83/53 64 97 03/28 1511 83 18 81/60 66 95 03/28 1505 83 20 82/50 62 95 03/28 1500 80 18 83/51 63 96 03/28 1455 81 18 86/54 66 96 03/28 1450 82 14 87/50 63 96 03/28 1445 82 17 88/50 64 96 03/28 1440 82 16 85/54 65 96 03/28 1435 82 16 88/51 65 96 03/28 1430 84 16 89/54 68 96 03/28 1425 84 19 97/52 71 96 03/28 1420 85 19 99/56 74 95 03/28 1419 Nasal 2 cannula / 1415 85 16 94/52 66 95 03/28 1410 85 16 94/50 67 95 03/28 1405 84 30 88/52 64 98 03/28 1400 83 18 91/51 66 98 03/28 1356 84 15 95/53 69 98 03/28 1355 84 98/55 72 99 03/28 1350 86 15 105/57 75 98 03/28 1340 98.9 81 15 101/55 72 98 Nasal 2 cannula 03/ 1335 81 18 94/52 66 98 03/28 1330 81 16 93/51 67 98 03/28 1325 79 16 83/53 64 98 03/28 1322 Simple 8 mask 03/28 1320 83 17 106/54 77 98 08/19 1315 84 18 104/57 78 99 08/19 1310 84 15 102/56 73 99 03 1305 83 15 96/54 70 99 / 1300 84 14 94/52 68 98 08/19 1255 81 15 90/50 64 95 / 1255 81 15 90/50 95 08/19 1251 82 18 91/51 64 100 03 1250 81 18 90/50 63 100 03 1245 81 16 90/55 68 100 03 1240 82 16 92/55 68 100 08/19 1240 82 16 92/55 100 Nasal 2 cannula 08/19 1239 82 15 91/50 64 100 08/19 1235 83 16 100 Nasal 2 cannula 08/19 1230 84 16 94/51 66 100 Nasal 2 cannula 08/19 1226 87 15 103/58 77 100 08/19 1225 86 15 100 Nasal 2 cannula 08/19 1220 87 14 100 Simple 6 mask 08/19 1215 87 16 107/55 75 100 Simple 8 mask 08/19 1210 88 16 100 Simple 8 mask 08/19 1209 99.9 90 19 107/55 78 100 Simple 8 mask 08/19 1100 101 18 103/56 76 95 08/19 1045 101 18 112/60 80 97 / 1030 101 19 115/60 82 96 08/19 1015 102 18 115/60 80 95 / 1000 101 20 110/58 78 95 08/19 0945 102 18 110/57 78 96 08/19 0930 101 18 106/55 74 95 08/19 0915 101 20 111/58 79 95 08/19 0900 101 19 112/56 79 94 08/19 0845 102 28 105/69 83 96 08/19 0830 101 20 110/59 81 96 08/19 0815 100 20 115/59 81 96 / 0800 101.9 08/19 0800 99 18 114/61 81 97 08/19 0745 98 17 113/60 79 95 / 0730 96 17 113/55 79 97 / 0715 94 15 107/55 76 95 / 0700 96 20 101/56 75 97 / 0600 91 16 114/58 80 95 03/ 0545 91 16 114/55 78 95 / 0530 95 21 119/59 81 96 08/19 0515 92 18 118/60 83 97 / 0514 94 15 96 / 0500 92 16 109/58 79 95 / 0445 91 17 109/59 80 96 08/19 0430 95 18 121/60 82 96 / 0415 91 16 112/59 81 96 / 0400 99.0 Room air / 0400 115/59 80 03/ 0345 89 19 107/55 76 96 / 0330 86 18 109/58 80 94 08/19 0315 87 18 109/53 78 94 / 0300 93 17 125/57 82 96 / 0245 89 19 100/56 75 94 / 0230 95 18 121/60 84 96 08/19 0215 93 17 117/58 83 96 08/19 0200 91 20 101/57 74 92 / 0145 92 20 103/57 75 93 08/19 0130 92 20 105/57 77 92 03/ 0115 91 19 100/55 75 92 / 0100 95 22 90/51 66 95 08/19 0045 97 22 97/56 70 94 08/19 0030 92 20 91/55 69 94 08/19 0015 98 20 105/59 77 95 / 0000 98.9 Room air 08/19 0000 94 19 97/55 73 91 08/18 2345 101 23 100/57 75 95 08/18 2330 97 21 101/55 75 95 08/18 2315 98 21 108/55 75 94 08/18 2300 101 21 112/61 80 95 08/18 2245 104 21 126/61 87 93 08/18 2230 103 19 116/57 80 91 08/18 2215 100 21 101/55 75 92 08/18 2200 100 21 105/57 76 92 08/18 2147 99 25 108/54 76 PATIENT WEIGHT: Weight (lb): Weight (oz): Weight (kg): 77.700 Medications: Active Meds + DC'd Last 24 Hrs Insulin Glargine (Lantus/Semglee) 15 UNIT BEDTIM E SUBQ Norepinephrine Bitartrate (NOREPINEPHRINE 8 MG/N S 250 ML) 250 ML TITRATE IV Sodium Chloride (SODIUM CHLORIDE 0.9%) 500 ML BARBARA LINNETTE ONCE ONE IV (DC) Albumin Human (ALBUMINAR 25%) 100 ML Q6H IV Sodium Chloride (SODIUM CHLORIDE 0.9%) 500 ML BARBARA LINNETTE ONCE ONE IV (DC) Sodium Chloride (SODIUM CHLORIDE 0.9%) 1,000 ML .[id number] IV Dextrose/Water (DEXTROSE 10% IN WATER) 250 ML DIR PRN IV (CKD) Insulin Human Regular (HumuLIN R) 100 UNIT ASDI R IV (CKD) Sodium Chloride (SODIUM CHLORIDE 0.9%) 99 ML Insulin Human Regular (HUMAN INSULIN REG) 10 UNI TS ONCE ONE IV (DC) Diphenhydramine HCl (BENADRYL) 12.5 MG PACU ONC E PRN IV Fentanyl Citrate (SUBLIMAZE) 100 MCG PACU Q10MIN PRN PRN IV Fentanyl Citrate (SUBLIMAZE) 50 MCG PACU Q10MIN PRN PRN IV Hydralazine HCl (APRESOLINE) 5 MG PACU Q10MIN NV N PRN IV Hydrocodone Bitart/Acetaminophen (NORCO 5/325) 1 TAB PACU ONCE PO (CKD) Hydromorphone HCl (DILAUDID) 1 MG PACU Q10MIN NV N PRN IV Hydromorphone HCl (DILAUDID) 0.5 MG PACU Q5MIN P RN PRN IV Insulin Human Lispro (HUMALOG) 0 PACU ONCE PRN S UBQ Labetalol HCl (LABETALOL HCL) 5 MG PACU Q10MIN PRN PRN IV Meperidine HCl (MEPERIDINE HCL/PF) 12.5 MG PACU ONCE PRN IV Morphine Sulfate (morphine SULFATE) 2 MG PACU Q1 0MIN PRN PRN IV Ondansetron HCl (ZOFRAN) 4 MG PACU ONCE PRN IV Promethazine HCl (PHENERGAN) 25 MG PACU ONCE PRN PO Ropivacaine (NAROPIN 0.5% 150 MG/30mL) 150 MG DIR PRN LOCAL Tramadol HCl (ULTRAM) 50 MG PACU ONCE PO (CKD) Phenylephrine HCl (YENNY-SYNEPHRINE 10MG/ML AMP) 0 .STK-MED ONE .ROUTE (DC ) Acetaminophen (TYLENOL) 650 MG ONCE ONE RECTAL ( DC) Bupivacaine HCl (MARCAINE 0.5%) 0 .STK-MED ONE . ROUTE (DC) Gentamicin Sulfate (GARAMYCIN) 0 .STK-MED ONE .R OUTE (DC) Lidocaine HCl (LIDOCAINE HCL/PF) 0 .STK-MED ONE .ROUTE (DC) Dextrose/Water (DEXTROSE 10% IN WATER) 250 ML DIR PRN IV (CKD) Dextrose/Water (Dextrose 10% 1,000 mL) 1,000 ML ASDIR IV Insulin Human Regular (HumuLIN R) 100 UNIT ASDIR IV (CKD) Sodium Chloride (SODIUM CHLORIDE 0.9%) 99 ML Glycopyrrolate (GLYCOPYRROLATE) 0 .STK-MED ONE . ROUTE (DC) Neostigmine Methylsulfate (PROSTIGMIN) 0 .STK-ME D ONE .ROUTE (DC) Dexamethasone Sodium Phosphate (DECADRON) 0 .STK -MED ONE .ROUTE (DC) Fentanyl Citrate (SUBLIMAZE) 0 .STK-MED ONE .ROU TE (DC) Ketorolac Tromethamine (TORADOL 30 MG) 0 .STK-ME D ONE .ROUTE (DC) Lidocaine HCl (XYLOCAINE) 0 .STK-MED ONE .ROUTE (DC) Midazolam HCl (VERSED) 0 .STK-MED ONE .ROUTE (DC ) Ondansetron HCl (ZOFRAN) 0 .STK-MED ONE .ROUTE ( DC) Propofol (DIPRIVAN 200MG/20ML INJECTION) 20 ML . STK-MED ONE IV (DC) Rocuronium Turner (ZEMURON) 0 .STK-MED ONE IV ( DC) Vancomycin HCl (VANCOMYCIN HCL) 1,000 MG Q24H IV (DC) Sodium Chloride (SODIUM CHLORIDE 0.9%) 250 ML Vancomycin HCl (VANCOMYCIN HCL) 1,000 MG Q12H IV Sodium Chloride (SODIUM CHLORIDE 0.9%) 250 ML Meropenem (MEROPENEM) 500 MG Q6H IV Sterile Water (WATER FOR INJECTION) 10 ML Dextrose/Water (DEXTROSE 10% IN WATER) 250 ML DIR PRN IV (CKD) Insulin Human Regular (HumuLIN R) 100 UNIT ASDIR IV (DC) Sodium Chloride (SODIUM CHLORIDE 0.9%) 99 ML Dextrose/Sodium Chloride (Dextrose 5% / 0.45% Na Cl) 1,000 ML .Q6H40M IV (DC) Clindamycin Phosphate (CLEOCIN 900 MG/NS 50 ML) 50 ML Q8H IV Famotidine (PEPCID) 20 MG Q12HR IV Acetaminophen (TYLENOL) 650 MG Q6H PRN PRN PO Bisacodyl (DULCOLAX) 10 MG DAILY PRN PRN RECTAL Docusate Sodium (COLACE) 100 MG Q12H PRN PRN PO Hydrocodone Bitart/Acetaminophen (NORCO 5/325) 1 TAB Q4H PRN PRN PO Morphine Sulfate (morphine SULFATE) 2 MG Q4H PRN PRN IV Ondansetron HCl (ZOFRAN) 4 MG Q6H PRN PRN IV Mupirocin (BACTROBAN 2% 22 GM OINTMENT) 1 APPLIC BID NASAL Heparin Sodium (HEPARIN 5000 UNITS/ML) 5,000 UNI T Q8HR SUBQ Dextrose/Water (DEXTROSE 10% IN WATER) 250 ML DIR PRN IV (CKD) Magnesium Sulfate (MAGNESIUM SULFATE 2GM/SWFI 50 ML) 50 ML ASDIR PRN IV Magnesium Sulfate (MAGNESIUM SULFATE 4GM/SWFI 10 0ML) 100 ML ASDIR PRN IV Miscellaneous Information (VANCOMYCIN PHARMACY T O DOSE) 1 EACH ASDIR IV (CKD) Potassium Chloride (POTASSIUM CHLORIDE 20MEQ TAB .ER) 20 MEQ ASDIR PRN PO Potassium Chloride (POTASSIUM CHLORIDE 20MEQ TAB .ER) 40 MEQ ASDIR PRN PO Potassium Chloride (POTASSIUM CHLORIDE 20MEQ TAB .ER) 60 MEQ ASDIR PRN PO (CKD) Potassium Chloride (KCL 20MEQ/SWFI 100ML) 100 ML ASDIR PRN IV Potassium Phosphate (POTASSIUM PHOSPHATE) 15 MM ASDIR PRN IV Sodium Chloride (SODIUM CHLORIDE 0.9%) 250 ML Physical Exam General appearance: alert, awake, oriented Neck: no bruit/NL carotids, no JVD Cardiovascular: CV assessment: abnormal S1/S2, regular rate and rhythm, no ectopy Respiratory: clear to auscultation, no distress Lower extremity: LE assessment: edema 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 X 3 Considered stroke alert: no Wound/incision: Location: right foot Results Findings/Data: Laboratory Tests 08/19 1727 1652 1601 1451 Chemistry Sodium (134 - 147 mEq/L) 133 L Potassium (3.4 - 5.0 mEq/L) 3.6 Chloride (100 - 108 mEq/L) 105 Carbon Dioxide (21 - 33 mEq/l) 21 Anion Gap (0 - 20) 10 BUN (7 - 18 mg/dL) 45 H Creatinine (0.6 - 1.3 mg/dL) 1.2 Glomerular Filtr Rate (90 - 95) 70.1 L Glucose (70 - 110 mg/dL) 247 H POC Glucose (70 - 110 MG/DL) 218 H 219 H 232 H 307 H Calcium (8.0 - 10.5 mg/dL) 7.6 L Phosphorus (2.5 - 4.9 MG/DL) 3.0 Magnesium (1.80 - 2.40 mg/dL) 2.03 Albumin (3.4 - 5.0 g/dL) 1.40 L 08/19 08/19 08/19 08/19 08/19 1338 1335 1233 1115 1115 Chemistry Sodium (134 - 147 mEq/L) 130 L Potassium (3.4 - 5.0 mEq/L) 3.6 Chloride (100 - 108 mEq/L) 107 Carbon Dioxide (21 - 33 mEq/l) 22 Anion Gap (0 - 20) 5 BUN (7 - 18 mg/dL) 39 H Creatinine (0.6 - 1.3 mg/dL) 1.1 Glomerular Filtr Rate (90 - 95) 77.8 L Glucose (70 - 110 mg/dL) 315 H POC Glucose (70 - 110 MG/DL) 340 H 363 H 326 H Calcium (8.0 - 10.5 mg/dL) 7.6 L Phosphorus (2.5 - 4.9 MG/DL) 2.2 L Magnesium (1.80 - 2.40 mg/dL) 2.06 B-Natriuretic Peptide (0 - 100 PG/ML) 96.0 Albumin (3.4 - 5.0 g/dL) 1.50 L 08/19 08/19 08/19 08/19 0805 0737 0737 0445 Chemistry Sodium (134 - 147 mEq/L) 130 L 130 L Potassium (3.4 - 5.0 mEq/L) 3.3 L 3.0 L Chloride (100 - 108 mEq/L) 103 102 Carbon Dioxide (21 - 33 mEq/l) 20 L 22 Anion Gap (0 - 20) 10 10 BUN (7 - 18 mg/dL) 42 H 43 H Creatinine (0.6 - 1.3 mg/dL) 1.2 1.3 Glomerular Filtr Rate (90 - 95) 70.1 L 63.7 L Glucose (70 - 110 mg/dL) 322 H 359 H POC Glucose (70 - 110 MG/DL) 292 H Calcium (8.0 - 10.5 mg/dL) 8.2 7.7 L Phosphorus (2.5 - 4.9 MG/DL) 2.6 2.9 Magnesium (1.80 - 2.40 mg/dL) 2.13 2.13 Iron (35 - 150 mcg/dL) 8 L TIBC (260 - 445 mcg/dL) 148 L % Saturation (14 - 34 %) 5.4 L Unsat Iron Binding (mcg/dL) 140 Ferritin (23.9 - 336.2 ng/mL) 2429.2 H Total Bilirubin (0.0 - 1.0 mg/dL) 0.60 AST (15 - 37 IUnit/L) 27 ALT (30 - 65 IUnit/L) 13 L Total Alk Phosphatase (20 - 125 IUnit/L) 150 H Total Protein (6.4 - 8.2 g/dL) 5.6 L Albumin (3.4 - 5.0 g/dL) 1.60 L 1.50 L Vitamin B12 (193 - 986 pg/mL) 5883 H Folate (3.1 - 17.5 ng/mL) 9.5 08/19 08/19 08/19 08/19 08/18 0340 0332 0330 0101 2246 Chemistry Sodium (134 - 147 mEq/L) 129 L Potassium (3.4 - 5.0 mEq/L) 3.3 L Chloride (100 - 108 mEq/L) 102 Carbon Dioxide (21 - 33 mEq/l) 20 L Anion Gap (0 - 20) 10 BUN (7 - 18 mg/dL) 44 H Creatinine (0.6 - 1.3 mg/dL) 1.3 Glomerular Filtr Rate (90 - 95) 63.7 L Glucose (70 - 110 mg/dL) 296 H POC Glucose (70 - 110 MG/DL) 332 H 296 H Hemoglobin A1c (4.8 - 6.0 %A1C) > 14.0 H Calcium (8.0 - 10.5 mg/dL) 7.7 L Ionized Calcium Mitzi (1.09 - 1.30 1.07 L MMOL/L) Phosphorus (2.5 - 4.9 MG/DL) 2.8 Magnesium (1.80 - 2.40 mg/dL) 2.13 Albumin (3.4 - 5.0 g/dL) 1.70 L 08/18 2157 Chemistry POC Glucose (70 - 110 MG/DL) 265 H Laboratory Tests 08/19 08/19 1652 0340 Hematology WBC (4.5 - 11.0 x10 3/uL) 20.3 H 21.3 H RBC (4.00 - 5.60 x10 6/uL) 2.57 L 2.80 L Hgb (12.5 - 16.9 g/dL) 7.1 L 7.6 L Hct (37.5 - 50.7 %) 20.9 L 22.3 L MCV (81.0 - 99.0 fL) 81.3 79.6 L MCH (27.0 - 33.0 pg) 27.6 27.1 MCHC (33.0 - 37.0 g/dL) 34.0 34.1 RDW (11.5 - 14.5 %) 14.3 14.0 Plt Count (150 - 400 x10 3/uL) 197 227 MPV (7.0 - 9.0 fL) 10.2 H 9.9 H Neut % (Auto) (56.0 - 77.0 %) 88.7 H 89.9 H Lymph % (Auto) (14.0 - 32.0 %) 3.8 L 4.3 L Boundary % (Auto) (4.8 - 9.0 %) 3.7 L 3.1 L Eos % (Auto) (0.3 - 3.7 %) 0.0 L 0.0 L Baso % (Auto) (0.0 - 2.0 %) 0.3 0.3 Neut # (Auto) (2.0 - 7.6 x10 3/uL) 17.97 H 19.1 7 H Lymph # (Auto) (1.0 - 3.8 x10 3/uL) 0.76 L 0.91 L Boundary # (Auto) (0.1 - 0.8 x10 3/uL) 0.74 0.67 Eos # (Auto) (0.0 - 0.2 x10 3/uL) 0.00 0.01 Baso # (Auto) (0.0 - 0.2 x10 3/uL) 0.07 0.07 Abs Immat Gran (auto) (0.00 - 0.03 x10 3/uL) 0. 71 H 0.51 H Add Manual Diff NO NO Immature Gran % (0.0 - 2.0 %) 3.5 H 2.4 H Nucleated RBC % (0 - 0 %) 0.0 0.0 Nucleated RBCs # (Man) (0.0 - 0.1 x10 3/uL) 0.0 0 0.00 Laboratory Tests 08/19 1622 Urines Urine Color (YEL/STRAW) YELLOW Urine Appearance (CLEAR) SL CLOUDY Urine pH (5.0 - 7.0) 5.0 Ur Specific [place] (1.005 - 1.030) 1.013 Urine Protein (NEGATIVE) 1+ H Urine Glucose (UA) (NEGATIVE) 3+ H Urine Ketones (NEGATIVE) NEGATIVE Urine Blood (NEGATIVE) 2+ H Urine Nitrite (NEGATIVE) NEGATIVE Urine Bilirubin (NEGATIVE) NEGATIVE Urine Urobilinogen (0.2 - 1.0 mg/dL) 0.2 Ur Leukocyte Esterase (NEGATIVE) 3+ H Urine RBC (0 - 3 RBC/HPF) 4-10 Urine WBC (0 - 3 WBC/HPF) 21-50 H Ur Squamous Epith Cells (NONE SEEN /HPF) 0-5 Urine Bacteria (NONE SEEN /HPF) TRACE Urine Mucus (NONE SEEN /LPF) TRACE Laboratory Tests 08/19 08/19 08/19 08/19 08/19 1652 1115 1115 0737 0445 Chemistry Magnesium (1.80 - 2.40 mg/dL) 2.03 2.06 2.13 2. 13 B-Natriuretic Peptide (0 - 100 PG/ML) 96.0 08/18 2246 Chemistry Magnesium (1.80 - 2.40 mg/dL) 2.13 Radiology data: Recent Impressions: ULTRASOUND - DUP [employer] 08/19 0950 Report Impression - Status: SIGNED Entered: 08/19/2022 1056 IMPRESSION: No sonographic evidence for flow-limiting stenos is in the right lower extremity arterial system. Impression By: [email or web address] - Abraham Ross M.D. Diagnosis, Assessment Plan Free Text DxA P Notes Free Text DxA P Notes: Impression: 1. Preop eval/cardiac clearance 2. Infected right foot gas gangrene 3. DKA 4. Sepsis 5. Hypertension 6. Anemia Recommendation: Patient presented for evalua tion of altered mental status, weakness and elevated blood sugar. Diagnosed with DKA and seps is. 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 Known cardiac history of hypertensio n and hyperlipidemia. Denies prior history of CAD, CHF or arrhythmia. EKG abn ormal, NSR with anterior infarct. Vital signs stable. No prior cardiac wo rk-up. -Check echocardiogram -Monitor telemetry for arrhythmia -Monitor blood pressure trend -Wound care and IV antibiotic therapy -Supportive care 08/19: Patient doing better postop, blood pressur e control, currently in sinus rhythm, lower extremity artery Doppler negative for any significant PAD, continue current management from primary team an d podiatry service, continue monitor on telemetry for arrhythmia postop, supp ortive care, discussed with patient and family as well as RN, will follow. at 1329 RPT #:[id number] END OF REPORT 2022-08-19 17:01:00-00:[address] [facility] ([facility]) Infectious Dis. Progress Note REPORT#:[id number] REPORT STATUS: Signed DATE:08/19/22 TIME: 1701 PATIENT: KARMA ROWLAND UNIT #: [id number] ROOM[address]BED: [address] : [address] AGE: 56 SEX: M ATTEND: Mikayla Ramires MD ADM AUTHOR: Anthony Curtis MD * ALL edits or amendments must be made on the [employer]/computer document * Subjective Chief complaint: Follow-up on MRSA bacteremia, right lower extrem ity necrotizing soft tissue infection. HPI: Had right lower extremity I D per podiatry earli er today. Patient seems more awake and alert. Denies acute or new complaints currently. No major overnight events. Objective General VS/I O: Vital Signs Date Temp Pulse Resp B/P B/P Mean Pulse Ox FiO2 08/18-08/19 98.9-99.9 75-109 14-30 74-126/44-69 54-87 91-100 Last Documented: Result Date Time Pulse Ox 95 08/19 1605 B/P 78/50 08/19 1605 B/P Mean 59 08/19 1605 Pulse 75 08/19 1605 Resp 15 08/19 1605 O2 Delivery Nasal cannula 08/19 1419 O2 Flow Rate 2 08/19 1419 Temp 98.9 08/19 1340 Vital Signs: Date Time Temp Pulse Resp B/P B/P Pulse O2 O2 F low FiO2 Mean Ox Delivery Rate 08/19 1605 75 15 78/50 59 95 08/19 1600 76 14 78/51 60 98 08/19 1555 77 17 78/53 61 98 08/19 1550 78 18 78/50 60 97 08/19 1545 77 17 75/47 56 97 08/19 1540 76 18 76/46 56 95 08/19 1535 76 16 75/47 55 97 08/19 1534 79 20 74/44 54 94 08/19 1530 77 16 76/48 57 97 08/19 1525 79 17 85/53 65 97 08/19 1520 82 17 84/55 63 97 08/19 1516 83 17 83/53 64 97 08/19 1511 83 18 81/60 66 95 08/19 1505 83 20 82/50 62 95 08/19 1500 80 18 83/51 63 96 08/19 1455 81 18 86/54 66 96 08/19 1450 82 14 87/50 63 96 08/19 1445 82 17 88/50 64 96 08/19 1440 82 16 85/54 65 96 08/19 1435 82 16 88/51 65 96 08/19 1430 84 16 89/54 68 96 08/19 1425 84 19 97/52 71 96 08/19 1420 85 19 99/56 74 95 08/19 1419 Nasal 2 cannula 08/19 1415 85 16 94/52 66 95 08/19 1410 85 16 94/50 67 95 08/19 1405 84 30 88/52 64 98 08/19 1400 83 18 91/51 66 98 08/19 1356 84 15 95/53 69 98 08/19 1355 84 98/55 72 99 08/19 1350 86 15 105/57 75 98 08/19 1340 98.9 81 15 101/55 72 98 Nasal 2 cannula 08/19 1335 81 18 94/52 66 98 08/19 1330 81 16 93/51 67 98 08/19 1325 79 16 83/53 64 98 08/19 1322 Simple 8 mask 08/19 1320 83 17 106/54 77 98 08/19 1315 84 18 104/57 78 99 03 1310 84 15 102/56 73 99 08/19 1305 83 15 96/54 70 99 08/19 1300 84 14 94/52 68 98 08/19 1255 81 15 90/50 64 95 03/ 1255 81 15 90/50 95 08/19 1251 82 18 91/51 64 100 08/19 1250 81 18 90/50 63 100 08/19 1245 81 16 90/55 68 100 08/19 1240 82 16 92/55 68 100 03 1240 82 16 92/55 100 Nasal 2 cannula 08/19 1239 82 15 91/50 64 100 08/19 1235 83 16 100 Nasal 2 cannula 08/19 1230 84 16 94/51 66 100 Nasal 2 cannula 08/19 1226 87 15 103/58 77 100 08/19 1225 86 15 100 Nasal 2 cannula 08/19 1220 87 14 100 Simple 6 mask 08/19 1215 87 16 107/55 75 100 Simple 8 mask 08/19 1210 88 16 100 Simple 8 mask 08/19 1209 99.9 90 19 107/55 78 100 Simple 8 mask 08/19 1100 101 18 103/56 76 95 08/19 1045 101 18 112/60 80 97 08/19 1030 101 19 115/60 82 96 08/19 1015 102 18 115/60 80 95 08/19 1000 101 20 110/58 78 95 08/19 0945 102 18 110/57 78 96 08/19 0930 101 18 106/55 74 95 08/19 0915 101 20 111/58 79 95 08/19 0900 101 19 112/56 79 94 08/19 0845 102 28 105/69 83 96 08/19 0830 101 20 110/59 81 96 08/19 0815 100 20 115/59 81 96 08/19 0800 99 18 114/61 81 97 / 0745 98 17 113/60 79 95 08/19 0730 96 17 113/55 79 97 / 0715 94 15 107/55 76 95 03/ 0700 96 20 101/56 75 97 03/ 0600 91 16 114/58 80 95 03/ 0545 91 16 114/55 78 95 / 0530 95 21 119/59 81 96 / 0515 92 18 118/60 83 97 03/ 0514 94 15 96 03/ 0500 92 16 109/58 79 95 03/28 0445 91 17 109/59 80 96 03/ 0430 95 18 121/60 82 96 / 0415 91 16 112/59 81 96 03/28 0400 99.0 Room air / 0400 115/59 80 03/28 0345 89 19 107/55 76 96 / 0330 86 18 109/58 80 94 / 0315 87 18 109/53 78 94 / 0300 93 17 125/57 82 96 03/28 0245 89 19 100/56 75 94 03/ 0230 95 18 121/60 84 96 / 0215 93 17 117/58 83 96 / 0200 91 20 101/57 74 92 / 0145 92 20 103/57 75 93 03/ 0130 92 20 105/57 77 92 03/ 0115 91 19 100/55 75 92 / 0100 95 22 90/51 66 95 / 0045 97 22 97/56 70 94 / 0030 92 20 91/55 69 94 / 0015 98 20 105/59 77 95 03/ 0000 98.9 Room air / 0000 94 19 97/55 73 91 03/ 2345 101 23 100/57 75 95 / 2330 97 21 101/55 75 95 03/ 2315 98 21 108/55 75 94 03/ 2300 101 21 112/61 80 95 03/ 2245 104 21 126/61 87 93 / 2230 103 19 116/57 80 91 / 2215 100 21 101/55 75 92 / 2200 100 21 105/57 76 92 03/ 2147 99 25 108/54 76 08/19 1999 99.6 Room air 08/19 1999 100 20 102/55 74 95 03/ 1930 104 20 107/59 79 96 03/27 1915 104 20 107/55 75 96 03/ 1900 109 20 119/63 84 96 03/ 1834 107 25 96 03/ 1830 103 26 107/55 75 97 03/27 1815 105 24 101/55 71 95 03/27 1800 101 21 104/52 71 96 03/ 1745 101 18 96/50 70 97 08/18 1730 102 24 107/57 77 93 08/18 1715 104 24 117/56 77 94 24 hour I O ending at 0700: 08/19 0700 08/18 1900 Intake Total 3418.00 Output Total 1600 Balance 1818.00 Intake, IV 2818.00 Intake, Oral 600 Output, Urine 1600 PATIENT WEIGHT: Weight (lb): Weight (oz): Weight (kg): 77.700 Physical Exam General appearance: alert, awake, no acute distr ess Wound/incision: Location: right foot currently dressed Cardiovascular: normal heart sounds, regular rat e rhythm, no murmur Respiratory: clear to auscultation, aerating wel l, symmetric expansion Abdomen: non-tender, soft, no distention Extremities: edema, RLE pitting edema noted 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 Rowland is a 56-year-old male with history of diabetes mellitus type 2, hypertension who was admitted with altered mental status and right-sided foot infection. According to him, he noticed a blister on his right foot around 3 days prior to presentation. His foot got progr essively more swollen and erythema extended proximally to his lateral foot and ankle. Here, patient was tachycardic and had a leukoc ytosis of 26.5. CT abdomen and pelvis with contrast is concerning for possible prostate abscess. CT of lower extremity without contrast shows extensive sof t tissue edema with mottled gas in the subcutaneous and intramuscular compartments of the foot, comp atible with gas-forming infection. Patient's blood cultures have come ba ck positive for MRSA in 2 out of 2 sets. Infectious disease consultation is re quested for antimicrobial recommendations. *MRSA bacteremia *Severe sepsis due to above *Right lower extremity necrotizing fasciitis *DKA *Prostatic mass versus abscess *ERIKA *Hyponatremia *Diabetic neuropathy *Diabetes mellitus type 2 *Hypertension -Afebrile. -Leukocytosis of 21.3 on today's CBC noted. Over all, slightly downtrending. -Hemoglobin A1c >14%. -Initial blood cultures from 08/18/2022 positive for MRSA in 2 out of 2 sets. -Wound culture also positive for Staphylococcus aureus. -TTE 08/18/2022 negative for any obvious vegetat ions. -Went to the OR today per podiatry for an I D. O perative note currently pending. -Seen by urology for prostat ic mass versus abscess. Plans for pelvic MRI noted. Plan: -Repeat blood cultures x2 today. -Continue to repeat serial blood cultures till b acteremia clears. -Presentation is likely due to MRSA infection only and the source is right foot. -If there is no additional growth, would likely stop meropenem by tomorrow. -Continue clindamycin x5 to 7 days total. -Continue vancomycin. -If patient has persistent bacteremia, he might need a JIMENA. -Continue supportive ICU care. CURRENT ANTIMICROBIALS: Clindamycin + meropenem + vancomycin, started Day 2 Electronically Signed by Anthony Curtis MD on 07/24 01/14 at 1710 RPT #:[id number] END OF REPORT 2022-08-19 16:20:00-00:00 HCACL [facility] Prog.Note-Vancomycin REPORT#:[id number] REPORT STATUS: Signed DATE:08/19/22 TIME: 1620 PATIENT: KARMA ROWLAND UNIT #: [id number] RO[address]BED: [address] : 61 AGE: 56 SEX: M ATTEND: David Ramires MD ADM AUTHOR: Tolu Tobias h * ALL edits or amendments must be made on the el [employer]/computer document * Vancomycin Vancomycin Medication Therapy Goal: AUC 400-600 mg*hr/L Indication for treatment: Empiric (now confirmed foot infection and bacter emia) Weight: Actual weight (kg): 77.7 VS and I/O: Vital Signs Date Temp Pulse Resp B/P B/P Mean Pulse Ox FiO2 08/18-08/19 36.6-37.7 75-135 14-30 74-156/44-78 54-96 91-100 72 hours ending at 0700 08/19 0700 08/18 1900 08/18 0700 08/17 1900 08/16 0700 1900 Intake 3418.00 Total Output 1600 Total Balance 1818.00 Intake, IV 2818.00 Intake, 600 Oral Output, 1600 Urine Patient 77.7 kg Weight Weight Stated/Rep orted Measuremen t Method 72 Hour I O Total 08/19 0700 08/18 0700 08/17 0700 Intake Total 3418.00 Output Total 1600 Balance 1818.00 Labs: Laboratory Test : 08/19 08/19 08/19 08/19 08/18 1115 0737 0445 0340 2246 Chemistry BUN (7 - 18 mg/dL) 39 H 42 H 43 H 44 H Creatinine (0.6 - 1.3 mg/dL) 1.1 1.2 1.3 1.3 Hematology WBC (4.5 - 11.0 x10 3/uL) 21.3 H 08/18 08/18 08/18 08/18 1430 0549 0205 0203 Chemistry BUN (7 - 18 mg/dL) 58 H 62 H 60 H Creatinine (0.6 - 1.3 mg/dL) 1.4 H 1.7 H 1.9 H Hematology WBC (4.5 - 11.0 x10 3/uL) 26.5 H Microbiology: 08/19 1210 ABSCESS: Wound Culture - RES 08/19 1210 ABSCESS: Anaerobic Culture - RES 08/19 1210 ABSCESS: Gram Stain - RES 08/18 0915 FOOT: Wound Culture - ORD 08/18 0207 FOOT: Wound Culture - RES COAG POS STAPHYLOCOCCUS 08/18 0207 THROAT: Group A Streptococcus Screen (VERONICA) - COMP 08/18 0207 THROAT: Streptococcus Culture - COMP 08/18 0203 BLOOD: Blood Culture - RES COAG POS STAPHYLOCOCCUS 08/18 0203 BLOOD: Blood Culture Gram Stain - RES 08/18 0203 BLOOD: Blood Culture - RES COAG POS STAPHYLOCOCCUS 08/18 0203 BLOOD: Blood Culture Gram Stain - RES Treatment plan: consult, change regimen Regimen: HPI: Karma Rowland is a [age] yo male with PMH of DM and HTN who presented with AMS, DKA, and a progressively worsening right fo ot infection. Patient was started empirically on antibiotics. Pharmacy is consulted to dose vancomycin. Requesting Provider: Andrew London MD Indication: Empiric Vancomycin AUC Goal: 400-600 mcg*hr/mL Concomitant Antibiotics: -Clindamycin 900 mg IV q8h -Meropenem 500 mg IV q6h 08/19 A/P: Labs and Vitals: WBC 21.3 (decrease from 26.5) Patient with a Tmax of 37.6C over the past 24 h ours Renal Function: BUN/SCr 39/1.1 (relatively unchanged in past 24 hours, improvement from admission) Urine Output with 1600 mL document over the pas t 24 hours Estimated CrCl 72 mL/min (using adjusted body w eight) Microbiology: 08/19 Abscess Cx from right foot: Many GPC on gr am stain (updated 08/19) 08/18 Blood Cx x2: 06/28 Coag Pos Staph (MRSA per Verigene) (updated 08/19) 08/18 Wound Cx from right foot: Many Coag Pos St aph (updated 08/19) 08/18 Rapid Strep: Negative Imagin/27 TTE: No valvular abnormalities 08/[address]: Extensive soft tissue edema with mottled gas in subcutaneous and intramuscular compartments comp atible with gas-forming infection 08/18 Right foot X-ray: No convincing evidence f or OM Dosing and Monitoring: -Patient received a loading dose of vancomycin yesterday, was set to start 1 g q24h today -Considering improving renal function and confi rmed MRSA bacteremia, have increased frequency to q12h -Patient with confirmed MRSA bacteremia, will p mariano for AUC monitoring provided stable renal function Pharmacy will continue to monitor Thank you for this consult at 1621 RPT #:[id number] END OF REPORT 2022-08-19 15:40:00-00:[address] [facility] ([facility]) Critical Care Progress Note REPORT#:[id number] REPORT STATUS: Signed DATE:08/19/22 TIME: 1540 PATIENT: KARMA ROWLAND UNIT #: [id number] ROOM/BED: [facility] : 63 AGE: 56 SEX: M ATTEND: David Ramires MD ADM AUTHOR: Alma De La Rosa CLAY MILLER * ALL edits or amendments must be made on the el [employer]/computer document * Subjective Chief complaint: RLE pain HPI: Karma Rowland is a 56 y/o M PMH of DM. Presented 08/18 with fever, AMS. He was found to have labs consisent with DKA with AGAP 21 and glucose 700+. RLE was very swollen/painful CT done concerning for gas gangrene. Review of Systems Musculoskeletal: Extremity pain: Reports: right lower. Extremity swelling: Reports: right lower. All systems rev neg: except as marked Objective General VS/I O Vital Signs Date Temp Pulse Resp B/P B/P Mean Pulse Ox FiO 2 08/18-08/19 98.9-99.9 79-109 14-26 83-126/50-71 66-87 91-100 24 hour I O ending at 0700: 08/19 0700 08/18 1900 Intake Total 3418.00 Output Total 1600 Balance 1818.00 Intake, IV 2818.00 Intake, Oral 600 Output, Urine 1600 PATIENT WEIGHT: Weight (lb): Weight (oz): Weight (kg): 77.700 Temperature maximum: 99.9 Physical Exam General appearance: alert, awake, oriented, no a cute distress Head/eyes: atraumatic, clear cornea, normocephal ic, PERRLA ENT: moist mucosal membranes, normal dentition, normal nose Neck: full range of motion, non-tender, no JVD, no masses or swelling Cardiovascular: decreased cap refill, tachycardi a, regular rate and rhythm Respiratory: aerating well, clear to auscultatio n, symmetric expansion Abdomen: soft, non-tender, normal bowel sounds Extremities: decreased range of motion, edema, m oves all Musculoskeletal decreased ROM 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, 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, no motor defici ts, no sensory deficits Considered stroke alert: no Skin: abnormal color, abnormal temperature Wound/incision: Location: right foot Site condition: dressing clean dry, dressing in tact Psychiatry: normal affect Results Findings/data: Laboratory Tests 08/19/22 1115: [Embedded Image Not Available] 08/19/22 0737: [Embedded Image Not Available] 08/19/22 0445: [Embedded Image Not Available] 08/19/22 0340: [Embedded Image Not Available] 08/18/22 2246: [Embedded Image Not Available] Microbiology: 08/19 121 ABSCESS: Wound Culture - RES 03/28 1210 ABSCESS: Anaerobic Culture - RES 08/19 1210 ABSCESS: Gram Stain - RES 08/18 0915 FOOT: Wound Culture - ORD 08/18 0207 FOOT: Wound Culture - RES COAG POS STAPHYLOCOCCUS 08/18 0207 THROAT: Group A Streptococcus Screen (VERONICA) - COMP 08/18 020 THROAT: Streptococcus Culture - COMP 08/18 020 BLOOD: Blood Culture - RES COAG POS STAPHYLOCOCCUS 08/18 0203 BLOOD: Blood Culture Gram Stain - RES 08/18 020 BLOOD: Blood Culture - RES COAG POS STAPHYLOCOCCUS 08/18 020 BLOOD: Blood Culture Gram Stain - RES Radiology data Recent Impressions: ULTRASOUND - DUP [employer] 08/19 0950 Report Impression - Status: SIGNED Entered: 08/19/2022 1056 IMPRESSION: No sonographic evidence for flow-limiting stenos is in the right lower extremity arterial system. Impression By: TipSG9 - bAraham Ross M.D. Results: labs reviewed, vital signs reviewed, vi brittny signs stable, rhythm personally rev'd, x-ray personally reviewed, nohemi reidt med profile rev'd Diagnosis, Assessment Plan Free text A P: 56 year old male unknown PMH who presented 08/18 with fever, AMS. He was found to have labs consisent with DKA with AGAP 21 and glucose 700+. Problem list: * Acute post op pain * DKA * pseudohyponatremia * tachycardia/hypotension likely secondary to hy povolemia * ERIKA * microcytic anemia - iron deficency * gram positive bactermia likely MRSA * RLE necrotizing fascitis /gas gangrene Neuro: pain regimen per scale CV: cont IVF resuscitation. levophed if needed t o keep MAP>65 Pulm: no issues. wean NC to maintain SpO2>92% GI: no issues, advance diet. bowel regimen Renal: cont IVF, trend cr, serial chemistry, mon itor I O Heme: trend HH, will need outpatient eval for et iology ID: blood cx + CONS. merrem/ clindamycin Endo: insulin protocol + lantus per endocrinolog ist. gap closed. a1c>14. MUSK: s/p RLE debridement on 08/19 GI px: pepcid DVT px: hep sq Dispo: ICU I have spent 35 minutes crit ical care time assessing, reviewing labs and imaging and discussing plan of care with the critical ok re senior network security engineer. Electronically Signed by Alma De La Rosa CLAY MILLER on 0 08/19/22 at 1611 RPT #:[id number] END OF REPORT 2022-08-19 15:15:00-00:00 [facility] ([facility]) Endocrinology Progress Note REPORT#:[id number] REPORT STATUS: Signed DATE:08/19/22 TIME: 1515 PATIENT: KARMA ROWLAND UNIT #: [id number] ROOM/BED: [place] [address] : 61 AGE: 56 SEX: M ATTEND: Mikayla Ramires MD ADM AUTHOR: Braxton Chapin MD * ALL edits or amendments must be made on the [employer]/computer document * Subjective Patient reports: no complaints Objective General VS: Last Documented: Result Date Time O2 Delivery Nasal cannula 08/19 1419 O2 Flow Rate 2 08/19 1419 Pulse Ox 98 08/19 1340 B/P 101/55 08/19 1340 Temp 37.2 08/19 1340 Pulse 81 08/19 1340 Resp 15 08/19 1340 B/P Mean 80 08/19 0600 PATIENT WEIGHT: Weight (lb): Weight (oz): Weight (kg): 77.700 Medications: Active Meds + DC'd Last 24 Hrs Insulin Human Regular (HUMAN INSULIN REG) 10 UNI TS ONCE ONE IV (DC) Diphenhydramine HCl (BENADRYL) 12.5 MG PACU ONCE PRN IV Fentanyl Citrate (SUBLIMAZE) 100 MCG PACU Q10MIN PRN PRN IV Fentanyl Citrate (SUBLIMAZE) 50 MCG PACU Q10MIN PRN PRN IV Hydralazine HCl (APRESOLINE) 5 MG PACU Q10MIN NV N PRN IV Hydrocodone Bitart/Acetaminophen (NORCO 5/325) 1 TAB PACU ONCE PO (CKD) Hydromorphone HCl (DILAUDID) 1 MG PACU Q10MIN NV N PRN IV Hydromorphone HCl (DILAUDID) 0.5 MG PACU Q5MIN P RN PRN IV Insulin Human Lispro (HUMALOG) 0 PACU ONCE PRN S UBQ Labetalol HCl (LABETALOL HCL) 5 MG PACU Q10MIN P RN PRN IV Meperidine HCl (MEPERIDINE HCL/PF) 12.5 MG PACU ONCE PRN IV Morphine Sulfate (morphine SULFATE) 2 MG PACU Q1 0MIN PRN PRN IV Ondansetron HCl (ZOFRAN) 4 MG PACU ONCE PRN IV Promethazine HCl (PHENERGAN) 25 MG PACU ONCE PRN PO Ropivacaine (NAROPIN 0.5% 150 MG/30mL) 150 MG DIR PRN LOCAL Tramadol HCl (ULTRAM) 50 MG PACU ONCE PO (CKD) Phenylephrine HCl (YENNY-SYNEPHRINE 10MG/ML AMP) 0 .STK-MED ONE .ROUTE (DC ) Acetaminophen (TYLENOL) 650 MG ONCE ONE RECTAL ( DC) Bupivacaine HCl (MARCAINE 0.5%) 0 .STK-MED ONE . ROUTE (DC) Gentamicin Sulfate (GARAMYCIN) 0 .STK-MED ONE .R OUTE (DC) Lidocaine HCl (LIDOCAINE HCL/PF) 0 .STK-MED ONE .ROUTE (DC) Dextrose/Water (DEXTROSE 10% IN WATER) 250 ML DIR PRN IV (CKD) Dextrose/Water (Dextrose 10% 1,000 mL) 1,000 ML ASDIR IV Insulin Human Regular (HumuLIN R) 100 UNIT ASDIR IV (CKD) Sodium Chloride (SODIUM CHLORIDE 0.9%) 99 ML Glycopyrrolate (GLYCOPYRROLATE) 0 .STK-MED ONE . ROUTE (DC) Neostigmine Methylsulfate (PROSTIGMIN) 0 .STK-ME D ONE .ROUTE (DC) Dexamethasone Sodium Phosphate (DECADRON) 0 .STK -MED ONE .ROUTE (DC) Fentanyl Citrate (SUBLIMAZE) 0 .STK-MED ONE .ROU TE (DC) Ketorolac Tromethamine (TORADOL 30 MG) 0 .STK-ME D ONE .ROUTE (DC) Lidocaine HCl (XYLOCAINE) 0 .STK-MED ONE .ROUTE (DC) Midazolam HCl (VERSED) 0 .STK-MED ONE .ROUTE (DC ) Ondansetron HCl (ZOFRAN) 0 .STK-MED ONE .ROUTE ( DC) Propofol (DIPRIVAN 200MG/20ML INJECTION) 20 ML . STK-MED ONE IV (DC) Rocuronium Turner (ZEMURON) 0 .STK-MED ONE IV ( DC) Vancomycin HCl (VANCOMYCIN HCL) 1,000 MG Q24H IV (DC) Sodium Chloride (SODIUM CHLORIDE 0.9%) 250 ML Vancomycin HCl (VANCOMYCIN HCL) 1,000 MG Q12H IV Sodium Chloride (SODIUM CHLORIDE 0.9%) 250 ML Meropenem (MEROPENEM) 500 MG Q6H IV Sterile Water (WATER FOR INJECTION) 10 ML Dextrose/Water (DEXTROSE 10% IN WATER) 250 ML DIR PRN IV (CKD) Insulin Human Regular (HumuLIN R) 100 UNIT ASDIR IV (DC) Sodium Chloride (SODIUM CHLORIDE 0.9%) 99 ML Dextrose/Sodium Chloride (Dextrose 5% / 0.45% Na Cl) 1,000 ML .Q6H40M IV (DC) Clindamycin Phosphate (CLEOCIN 900 MG/NS 50 ML) 50 ML Q8H IV Famotidine (PEPCID) 20 MG Q12HR IV Acetaminophen (TYLENOL) 650 MG Q6H PRN PRN PO Bisacodyl (DULCOLAX) 10 MG DAILY PRN PRN RECTAL Docusate Sodium (COLACE) 100 MG Q12H PRN PRN PO Hydrocodone Bitart/Acetaminophen (NORCO 5/325) 1 TAB Q4H PRN PRN PO Morphine Sulfate (morphine SULFATE) 2 MG Q4H PRN PRN IV Ondansetron HCl (ZOFRAN) 4 MG Q6H PRN PRN IV Mupirocin (BACTROBAN 2% 22 GM OINTMENT) 1 APPLIC BID NASAL Heparin Sodium (HEPARIN 5000 UNITS/ML) 5,000 UNI T Q8HR SUBQ Piperacillin Sod/Tazobactam Sod (ZOSYN 3.375GM) 3.375 GM Q8H IV (DC) Sodium Chloride (SODIUM CHLORIDE 0.9% 100 ML) 1 00 ML Dextrose/Water (DEXTROSE 10% IN WATER) 250 ML DIR PRN IV (CKD) Insulin Human Regular (HumuLIN R) 100 UNIT ASDIR IV (DC) Sodium Chloride (SODIUM CHLORIDE 0.9%) 99 ML Magnesium Sulfate (MAGNESIUM SULFATE 2GM/SWFI 50 ML) 50 ML ASDIR PRN IV Magnesium Sulfate (MAGNESIUM SULFATE 4GM/SWFI 10 0ML) 100 ML ASDIR PRN IV Miscellaneous Information (VANCOMYCIN PHARMACY T O DOSE) 1 EACH ASDIR IV (CKD) Potassium Chloride (POTASSIUM CHLORIDE 20MEQ TAB .ER) 20 MEQ ASDIR PRN PO Potassium Chloride (POTASSIUM CHLORIDE 20MEQ TAB .ER) 40 MEQ ASDIR PRN PO Potassium Chloride (POTASSIUM CHLORIDE 20MEQ TAB .ER) 60 MEQ ASDIR PRN PO (CKD) Potassium Chloride (KCL 20MEQ/SWFI 100ML) 100 ML ASDIR PRN IV Potassium Phosphate (POTASSIUM PHOSPHATE) 15 MM ASDIR PRN IV Sodium Chloride (SODIUM CHLORIDE 0.9%) 250 ML Physical Exam General appearance: alert, awake Diagnosis, Assessment Plan Hospital course to date: Laboratory Tests: 08/19 08/19 08/19 08/19 08/19 1338 1335 1233 1115 1115 Chemistry Sodium (134 - 147 mEq/L) 130 L Potassium (3.4 - 5.0 mEq/L) 3.6 Chloride (100 - 108 mEq/L) 107 Carbon Dioxide (21 - 33 mEq/l) 22 Anion Gap (0 - 20) 5 BUN (7 - 18 mg/dL) 39 H Creatinine (0.6 - 1.3 mg/dL) 1.1 Glomerular Filtr Rate (90 - 95) 77.8 L Glucose (70 - 110 mg/dL) 315 H POC Glucose (70 - 110 MG/DL) 340 H 363 H 326 H Calcium (8.0 - 10.5 mg/dL) 7.6 L Phosphorus (2.5 - 4.9 MG/DL) 2.2 L Magnesium (1.80 - 2.40 mg/dL) 2.06 B-Natriuretic Peptide (0 - 100 PG/ML) 96.0 Albumin (3.4 - 5.0 g/dL) 1.50 L 08/19 08/19 08/19 08/19 0805 0737 0737 0445 Chemistry Sodium (134 - 147 mEq/L) 130 L 130 L Potassium (3.4 - 5.0 mEq/L) 3.3 L 3.0 L Chloride (100 - 108 mEq/L) 103 102 Carbon Dioxide (21 - 33 mEq/l) 20 L 22 Anion Gap (0 - 20) 10 10 BUN (7 - 18 mg/dL) 42 H 43 H Creatinine (0.6 - 1.3 mg/dL) 1.2 1.3 Glomerular Filtr Rate (90 - 95) 70.1 L 63.7 L Glucose (70 - 110 mg/dL) 322 H 359 H POC Glucose (70 - 110 MG/DL) 292 H Calcium (8.0 - 10.5 mg/dL) 8.2 7.7 L Phosphorus (2.5 - 4.9 MG/DL) 2.6 2.9 Magnesium (1.80 - 2.40 mg/dL) 2.13 2.13 Iron (35 - 150 mcg/dL) 8 L TIBC (260 - 445 mcg/dL) 148 L % Saturation (14 - 34 %) 5.4 L Unsat Iron Binding (mcg/dL) 140 Ferritin (23.9 - 336.2 ng/mL) 2429.2 H Total Bilirubin (0.0 - 1.0 mg/dL) 0.60 AST (15 - 37 IUnit/L) 27 ALT (30 - 65 IUnit/L) 13 L Total Alk Phosphatase (20 - 125 IUnit/L) 150 H Total Protein (6.4 - 8.2 g/dL) 5.6 L Albumin (3.4 - 5.0 g/dL) 1.60 L 1.50 L Vitamin B12 (193 - 986 pg/mL) 5883 H Folate (3.1 - 17.5 ng/mL) 9.5 08/19 08/19 08/19 08/19 0340 0332 0330 0101 Chemistry POC Glucose (70 - 110 MG/DL) 332 H 296 H Hemoglobin A1c (4.8 - 6.0 %A1C) > 14.0 H Ionized Calcium Mitzi (1.09 - 1.30 MMOL/L) 1.07 L Hematology WBC (4.5 - 11.0 x10 3/uL) 21.3 H RBC (4.00 - 5.60 x10 6/uL) 2.80 L Hgb (12.5 - 16.9 g/dL) 7.6 L Hct (37.5 - 50.7 %) 22.3 L MCV (81.0 - 99.0 fL) 79.6 L MCH (27.0 - 33.0 pg) 27.1 MCHC (33.0 - 37.0 g/dL) 34.1 RDW (11.5 - 14.5 %) 14.0 Plt Count (150 - 400 x10 3/uL) 227 MPV (7.0 - 9.0 fL) 9.9 H Neut % (Auto) (56.0 - 77.0 %) 89.9 H Lymph % (Auto) (14.0 - 32.0 %) 4.3 L Boundary % (Auto) (4.8 - 9.0 %) 3.1 L Eos % (Auto) (0.3 - 3.7 %) 0.0 L Baso % (Auto) (0.0 - 2.0 %) 0.3 Neut # (Auto) (2.0 - 7.6 x10 3/uL) 19.17 H Lymph # (Auto) (1.0 - 3.8 x10 3/uL) 0.91 L Boundary # (Auto) (0.1 - 0.8 x10 3/uL) 0.67 Eos # (Auto) (0.0 - 0.2 x10 3/uL) 0.01 Baso # (Auto) (0.0 - 0.2 x10 3/uL) 0.07 Abs Immat Gran (auto) (0.00 - 0.03 x10 3/uL) 0. 51 H Add Manual Diff NO Immature Gran % (0.0 - 2.0 %) 2.4 H Nucleated RBC % (0 - 0 %) 0.0 Nucleated RBCs # (Man) (0.0 - 0.1 x10 3/uL) 0.0 0 08/18 08/18 08/18 08/18 2246 2157 1854 1653 Chemistry Sodium (134 - 147 mEq/L) 129 L Potassium (3.4 - 5.0 mEq/L) 3.3 L Chloride (100 - 108 mEq/L) 102 Carbon Dioxide (21 - 33 mEq/l) 20 L Anion Gap (0 - 20) 10 BUN (7 - 18 mg/dL) 44 H Creatinine (0.6 - 1.3 mg/dL) 1.3 Glomerular Filtr Rate (90 - 95) 63.7 L Glucose (70 - 110 mg/dL) 296 H POC Glucose (70 - 110 MG/DL) 265 H 226 H 223 H Calcium (8.0 - 10.5 mg/dL) 7.7 L Phosphorus (2.5 - 4.9 MG/DL) 2.8 Magnesium (1.80 - 2.40 mg/dL) 2.13 Albumin (3.4 - 5.0 g/dL) 1.70 L Microbiology: Date/Time Procedure - Status Source Growth 08/19 1209 Wound Culture - RES ABSCESS 08/19 1209 Anaerobic Culture - RES ABSCESS 08/19 1209 Gram Stain - RES ABSCESS Recent Impressions: ULTRASOUND - DUP LE [employer] UNI/LTD 08/19 0950 Report Impression - Status: SIGNED Entered: 08/19/2022 1056 IMPRESSION: No sonographic evidence for flow-limiting stenos is in the right lower extremity arterial system. Impression By: [email or web address] - Abraham Ross M.D. Laboratory Tests: 08/18 08/18 08/18 08/18 08/18 1430 1430 1404 1309 1203 Chemistry Sodium (134 - 147 mEq/L) 131 L Potassium (3.4 - 5.0 mEq/L) 3.4 Chloride (100 - 108 mEq/L) 101 Carbon Dioxide (21 - 33 mEq/l) 24 Anion Gap (0 - 20) 9 BUN (7 - 18 mg/dL) 58 H Creatinine (0.6 - 1.3 mg/dL) 1.4 H Glomerular Filtr Rate (90 - 95) 58.3 L Glucose (70 - 110 mg/dL) 207 H POC Glucose (70 - 110 MG/DL) 195 H 213 H 201 H Calcium (8.0 - 10.5 mg/dL) 7.8 L Phosphorus (2.5 - 4.9 MG/DL) 2.2 L Magnesium (1.80 - 2.40 mg/dL) 2.09 Albumin (3.4 - 5.0 g/dL) 1.60 L Triglycerides (40 - 150 mg/dL) 161 H Cholesterol (<200 mg/dL) 90 LDL Cholesterol Measurd (0 - 100 mg/dL) 33.0 HDL Cholesterol (32 - 72 mg/dL) < 20.0 L Cholesterol/HDL Ratio (3.43 - 4.97 4.00 RATIO) TSH (0.42 - 5.47) 0.96 Free T4 (0.77 - 1.61 ng/dL) 0.7 L 08/18 08/18 08/18 08/18 08/18 1107 1004 0900 0823 0549 Chemistry POC Glucose (70 - 110 MG/DL) 223 H 304 H 405 H 449 H Hemoglobin A1c (4.8 - 6.0 %A1C) 13.4 H 08/18 08/18 08/18 0549 0305 0207 Blood Gas Puncture Site R Radial O2 Saturation (90 - 100 %) 97.9 ABG pH (7.35 - 7.45) 7.309 L ABG pCO2 (35.0 - 45 mmHg) 22.3 *L ABG pO2 (80 - 100.0 mmHg) 108.0 H ABG PO2/FiO2 Ratio (mm/Hg) 514.28 ABG HCO3 (22.0 - 26.0 MMOL/L) 11.2 *L ABG Total CO2 11.9 ABG Base Excess (-4.0 - 4.0 MMOL/L) -15.1 L Neto Test Positive O2 Delivery Device Room Air FiO2 (%) 21 Chemistry Sodium (134 - 147 mEq/L) 121 *L Potassium (3.4 - 5.0 mEq/L) 4.1 Chloride (100 - 108 mEq/L) 90 L Carbon Dioxide (21 - 33 mEq/l) 15 L Anion Gap (0 - 20) 20 BUN (7 - 18 mg/dL) 62 H Creatinine (0.6 - 1.3 mg/dL) 1.7 H Glomerular Filtr Rate (90 - 95) 46.2 L Glucose (70 - 110 mg/dL) 692 *H Calcium (8.0 - 10.5 mg/dL) 7.5 L Phosphorus (2.5 - 4.9 MG/DL) 4.8 Magnesium (1.80 - 2.40 mg/dL) 2.34 Albumin (3.4 - 5.0 g/dL) 1.60 L Serology Influenza Type A (PCR) (Negative) Negative Influenza Type B (PCR) (Negative) Negative Toxicology Acetone, Quant (Neg - <20 mg/dL) Large - 80-100 mg/dL 08/18 08/18 08/18 0205 0203 0203 Chemistry Sodium (134 - 147 mEq/L) 115 *L Potassium (3.4 - 5.0 mEq/L) 4.4 Chloride (100 - 108 mEq/L) 84 L Carbon Dioxide (21 - 33 mEq/l) 14 L Anion Gap (0 - 20) 21 H BUN (7 - 18 mg/dL) 60 H Creatinine (0.6 - 1.3 mg/dL) 1.9 H Glomerular Filtr Rate (90 - 95) 40.4 L Glucose (70 - 110 mg/dL) 709 *H Lactic Acid (0.4 - 1.9 mmol/L) 1.2 Calcium (8.0 - 10.5 mg/dL) 8.5 Total Bilirubin (0.0 - 1.0 mg/dL) 0.40 Direct Bilirubin (0.0 - 0.30 MG/DL) 0.20 Indirect Bilirubin (MG/DL) 0.20 AST (15 - 37 IUnit/L) 14 L ALT (30 - 65 IUnit/L) 10 L Total Alk Phosphatase (20 - 125 IUnit/L) 157 H Troponin I High Sens (0 - 54 ng/L) 4 Total Protein (6.4 - 8.2 g/dL) 6.4 Albumin (3.4 - 5.0 g/dL) 1.80 L Lipase (13 - 57 U/L) 24 Hematology WBC (4.5 - 11.0 x10 3/uL) 26.5 H RBC (4.00 - 5.60 x10 6/uL) 3.36 L Hgb (12.5 - 16.9 g/dL) 9.0 L Hct (37.5 - 50.7 %) 28.3 L MCV (81.0 - 99.0 fL) 84.2 MCH (27.0 - 33.0 pg) 26.8 L MCHC (33.0 - 37.0 g/dL) 31.8 L RDW (11.5 - 14.5 %) 14.5 Plt Count (150 - 400 x10 3/uL) 355 MPV (7.0 - 9.0 fL) 9.9 H Add Manual Diff YES Seg Neutrophils % (37 - 69 %) 70.0 H Band Neutrophils % (0.0 - 10.0 %) 12.7 H Lymphocytes % (Manual) (23 - 55 %) 3.7 L Monocytes % (Manual) (0 - 10 %) 9.1 Metamyelocytes (0.0 - 0.0 %) 2.7 H Myelocytes (0.0 - 0.0 %) 0.9 H Promyelocytes (0 - 0 %) 0.9 H Platelet Estimate (ADEQUATE THOUSAND) Adequate Plt Morphology Comment NORMAL Polychromasia 3+ Poikilocytosis 3+ Anisocytosis 1+ Macrocytosis 1+ Serology SARS-CoV-2 Ag (Rapid) (Negative) Negative Toxicology Salicylates (0.0 - 20.0 mg/dL) 5.6 Microbiology: Date/Time Procedure - Status Source Growth 08/18 914 Wound Culture - ORD FOOT 08/18 206 Wound Culture - RECD FOOT 08/18 206 Group A Streptococcus Screen (VERONICA) - COMP THROAT 08/18 206 Streptococcus Culture - COMP THROAT 08/18 202 Blood Culture - RES BLOOD 08/18 202 Blood Culture Gram Stain - RES BLOOD 08/18 202 Blood Culture - RES BLOOD 08/18 202 Blood Culture Gram Stain - RES BLOOD Recent Impressions: RADIOLOGY - XR CHEST 2 V 08/18 0201 Report Impression - Status: SIGNED Entered: 08/18/2022 0317 IMPRESSION: Ill-defined somewhat nodular opacity measuring 3 .2 cm laterally in the right mid lung suspicious for rounded pneumo ro given provided history, but underlying neoplasm can not be excl uded. Followup radiographs are recommended after appropriate tr eatment in order to document complete resolution and exclude an unde rlying process or neoplasm. Impression By: [email or web address] - Dom Adams M.D. RADIOLOGY - XR FOOT 3 + V RT 08/18 0238 Report Impression - Status: SIGNED Entered: 08/18/2022 0358 IMPRESSION: No acute osseous findings. No convincing evidenc e for osteomyelitis. MRI is more sensitive for detecti ng osteomyelitis. Impression By: Ankur Ladd M.D. CAT SCAN - CT ABD PELVIS W/CONT 08/18 0339 Report Impression - Status: SIGNED Entered: 08/18/2022 0546 IMPRESSION: 3.3 cm hypodensity in the left posterior prostat e or seminal vesicle. This could represent an abscess. Contra st-enhanced MRI of the pelvis would be helpful for further evaluati on. No acute intra-abdominal findings otherwise. Impression By: Ankur Ladd M.D. CAT SCAN - CT LOWER EXTRM W/O C RT 08/18 0645 Report Impression - Status: SIGNED Entered: 08/18/2022 0827 IMPRESSION: Extensive soft tissue edema with mottled gas in the subcutaneous and intramuscular compartments of the foot abhishek tible with gas-forming infection. Disease extends into the visualized distal leg. Impression By: Jamel Dorantes M.D. 1. Diabetes mellitus type 2 uncontrolled with co mplications. 2. DKA 3. Cellulitis and gangrene of the right foot. 4. Sepsis 5. Altered mental status 6. High LFTs Blood sugar 315-292 mg/dL.A gap 5 HbA1c 13.4% White count 26.5 Sodium 121. Adjust insulin drip settings Start by mouth feedings Wound care and IV antibiotics. Electronically Signed by Braxton Chapin MD on at 1516 RPT #:[id number] END OF REPORT 2022-08-19 12:46:00-00:00 [id number] [place] [address] PATIENT NAME: KARMA ROWLAND ADMIT DATE: 08/18 ACCOUNT NO: [id number] ROOM NO: M325 AGE: 56 REPORT TYPE: OPERATIVE REPORT SEX: M ADMITTING PHYSICIAN:Wilbert Ramires MD ATTENDING PHYSICIAN:Wilbert Ramires MD OPERATION DATE: SURGEON: Liam Pedersen DPM ENVIRONMENTAL TECHNOLOGY PROFESSOR: No psych assistant. PREOPERATIVE DIAGNOSES: 1. Gas gangrene, right foot to right ankle. 2. Abscess, right foot to right ankle. 3. Sepsis. 4. Diabetes with peripheral neuropathy. 5. Peripheral vascular disease. 6. Ulceration, right foot to right ankle. POSTOPERATIVE DIAGNOSES: 1. Gas gangrene, right foot to right ankle. 2. Abscess, right foot to right ankle. 3. Sepsis. 4. Diabetes with peripheral neuropathy. 5. Peripheral vascular disease. 6. Ulceration, right foot to right ankle. PROCEDURE: Incisional and ex cisional debridement of right foot and right ankle. INDICATIONS FOR PROCEDURE: A very compli cated situation pleasant man. He is in the Intensive Care Unit. He stepped here because he has DKA. He has severe infection. I saw him yesterday. We found on CAT scan that he had gas in the tissues. He has severe infection. I discussed wi th his before the surgery. I discussed with her that there is high chance of loss of limb. He has quite severe infection on the CAT scan kierra perry an see continued gas in the tissues throughout the later al right ankle, the medial right foot and the dorsal right mid foot. Discussed with internal medicine team and discussed with cardiology team. We were able to get cardiac reuben arance late last night. We do order arterial studies have been done yet and al so significant issues with circulation. He has peripheral vascular disease and going to be contributing factor. Cardiology, Dr. Anne Parham is on the case to see what can we improve with that. He did also cleared him for surgery. All questions were answered before the surgery with him and his . ANESTHESIA: General anesthesia. HEMOSTASIS: No tourniquet was used. PATIENT NAME: KARMA ROWLAND [id number] PROCEDURE IN DETAIL: After informed consent was obtained, the patient's preoperative workup was completed, he was mulu t to the operating room and placed on the operating room table in supine pos ition. General anesthesia was performed by Anesthesia team. He was brought fro m the intensive care unit directly to the operating room. Right lower extr emity was prepped and draped. No tourniquet was used. I utilized the CAT scan data and films. We revie wed where we will make incisions and performed debridement in appropria te locations. I started the first one at the lateral aspect of his right ank le. I continues somewhat more inferiorly towards the right hindfoot. I debrided an area on the lateral aspect of the right ankle that was roughly 10 cm x 4 cm . It was skin, subcutaneous tissue, muscle and tendon de bridement. There was also some liquified bone there as well. I debrided the bone in that area only. The mid foot and the medial hindfoot, I do not have to d ebride any bone. From this area I found tunneling of bone cavities and significant purulent material and found gas bubbles. I eradicate all this and I debrided liquefied mate rial including skin, subcutaneous tissue, muscle, tendon and bone elizabeth t was liquified. I went up through some tunnels and ashlie e space more superiorly. I found at the end of it. The end of it was still in the more superior portion of the ankle underneath the flap of tissue that was raised. I took cultures of the most purulent material and sent t o microbiology for Gram stain as well as aerobic and anaerobic culture and sensit ivity. I irrigated copiously with a pulse supervising film or videotape editor machine as well as 80 mg of gentamicin. I obtained hemostasis. The bleeding of this area was poor, tendon and bone were complet mumtaz exposed. I packed it with 1-inch packing strips and placed a large dressin g. Attention was now dedicated to the right mid foot dorsally. I made an incision starting from the mid foot dorsally. I made an i ncisional and excisional debridement here as well. This debridement was s kin, subcutaneous tissue, muscle and tendon debridement. There was not any exposed bone. There was not any involved bone. It was roughly about 6 cm x 3 cm. I also opened up the pocket that came from the dorsal area that conne cted to the lateral ankle. I connected two of these and I debrided the subcutaneous tissue and muscle tendon layer of any liquefied material. I found some ad ditional pockets and I continues to incise and excised through the dors al forefoot as well. Then, I utilized the pulse supervising film or videotape editor machine with the sa line and gentamicin. I irrigated copiously. The bleeding here was poor as well. I then paid attention to the medial aspect of the right hindfoot. I excised the tissue and incised through the tissue here as we ll. This area was probably about 8 cm x 3 cm. Skin, subcutaneous tissue, mu scle and tendon were all debrided. There was no bone [TIME: 05:32] also go through the laciniate ligament to see if there was any purulence there . The purulence and the air bubbles were all mostly betw een the flexor retinaculum at the laciniate ligament and the skin level. There is quite a bit of space. I went through some tunneling. I opened up the t unnel and I opened up the pocket and eradicated any of the abscess. I debrided skin, subcutaneous ti ssue, muscle, tendon that was liquified that was necrotic. Irrigated copiously with saline and gentamicin irrigation with pulse supervising film or videotape editor machine. Make elliott re we had good hemostasis. Bleeding in the surgery was controlled as well. I packed the wound with packing strips. I placed a bulky dressing throughout the right foot and the right ankle. There was not any apparent involvement up into the leg that I could tell. We continue monitoring that. I talked to Janneth Caceres and Dr. Oswald from PATIENT NAME: KARMA ROWLAND [id number] General Surgery yesterday. If there is involveme nt of the infection going up his leg. We might need general surgery c onsultation. With today's procedure, I did not necessarily notice that. The ble eding was poor. I had discussion after surgery with Dr. Anne Parham with cardiology [facility]. We went through the arterial studies [TIME: 06:52] may have taken for angiogram. He is still at high risk for a below-kne e amputation if not more complicated situation. The patient was extubated and tr ansported back to the intensive care unit with vital signs stable and vascular status intact to right foot. He tolerated the procedure and anesthesia wel l, no apparent complications. All sponge and needle counts correct. FLUIDS: Less than a liter of crystalloid. BLOOD LOSS: Minimal. PATHOLOGY: None. MICROBIOLOGY: Abscessed tissue, right foot. COMPLICATIONS: None. INJECTABLES: None. I was present for all aspect s of procedure: After the surgery, I did go back to the intensive care unit and I spoke to the again and I went over with some of the findings. I will follow up with her tomor row as well. Dictated By: Liam Pedersen DPM Date Dictated: 08/19/2022 12:46:06 Date Transcribed: 08/19/2022 15:59:49 SHAYAN/IVÁN/YASMINE Receipt ID: [id number] Authenticated by Liam Pedersen DPM On 08/25/2022 09:42:00 PM at 0942 PATIENT NAME: KARMA ROWLAND [id number] 9[birth year] 07:13:00-00:00 [facility] Hospitalist Progress Note REPORT#:[id number] REPORT STATUS: Signed DATE:08/19/22 TIME: 712 PATIENT: KARMA ROWLAND UNIT #: [id number] ROOM/BED: [place] [address] : 63 AGE: 56 SEX: M ATTEND: Mikayla Ramires MD ADM AUTHOR: Wilbert Ramires MD * ALL edits or amendments must be made on the [employer]/computer document * Subjective Chief complaint: AMS and right foot infection. doing ok. not much pain. Review of Systems All systems rev neg: except as noted Objective General VS/I O: Vital Signs: Date Time Temp Pulse Resp B/P B/P Pulse O2 O2 F low FiO2 Mean Ox Delivery Rate 08/19 0600 91 16 114/58 80 95 08/19 0545 91 16 114/55 78 95 08/19 0530 95 21 119/59 81 96 08/19 0515 92 18 118/60 83 97 08/19 0514 94 15 96 08/19 0500 92 16 109/58 79 95 08/19 0445 91 17 109/59 80 96 08/19 0430 95 18 121/60 82 96 08/19 0415 91 16 112/59 81 96 08/19 0400 99.0 Room air 08/19 0400 115/59 80 08/19 0345 89 19 107/55 76 96 08/19 0330 86 18 109/58 80 94 08/19 0315 87 18 109/53 78 94 08/19 0300 93 17 125/57 82 96 08/19 0245 89 19 100/56 75 94 08/19 0230 95 18 121/60 84 96 08/19 0215 93 17 117/58 83 96 08/19 0200 91 20 101/57 74 92 / 0145 92 20 103/57 75 93 08/19 0130 92 20 105/57 77 92 08/19 0115 91 19 100/55 75 92 08/19 0100 95 22 90/51 66 95 08/19 0045 97 22 97/56 70 94 / 0030 92 20 91/55 69 94 08/19 0015 98 20 105/59 77 95 08/19 0000 98.9 Room air 08/19 0000 94 19 97/55 73 91 08/18 2345 101 23 100/57 75 95 08/18 2330 97 21 101/55 75 95 03 2315 98 21 108/55 75 94 03 2300 101 21 112/61 80 95 08/18 2245 104 21 126/61 87 93 08/18 2230 103 19 116/57 80 91 03/ 2215 100 21 101/55 75 92 / 2200 100 21 105/57 76 92 03/ 2147 99 25 108/54 76 08/19 1999 99.6 Room air 08/19 1999 100 20 102/55 74 95 03/ 1930 104 20 107/59 79 96 03/ 1915 104 20 107/55 75 96 03/ 1900 109 20 119/63 84 96 03/ 1834 107 25 96 03/ 1830 103 26 107/55 75 97 03/27 1815 105 24 101/55 71 95 03/27 1800 101 21 104/52 71 96 / 1745 101 18 96/50 70 97 03/ 1730 102 24 107/57 77 93 03/ 1715 104 24 117/56 77 94 03/27 1700 106 22 112/58 79 95 / 1645 108 26 106/71 81 96 / 1637 109 23 96 / 1630 107 21 116/58 80 96 03/ 1615 106 20 108/58 77 97 03/ 1600 98.9 109 22 101/58 72 96 Room air 08/18 1600 104 22 101/58 77 96 / 1545 101 21 97/56 73 95 03 1530 103 23 97/56 73 96 08/18 1515 101 23 99/56 74 96 /27 1500 100 23 104/55 78 95 /27 1445 113 25 111/58 80 97 /27 1430 101 19 95 / 1415 100 20 108/51 74 96 03/ 1400 105 20 103/58 75 98 03/27 1345 102 22 103/58 77 96 /27 1337 102 19 97 /27 1330 101 21 98/56 74 95 03/27 1315 103 21 95/53 69 95 03/27 1300 102 22 94/53 70 96 03/ 1245 104 22 104/57 76 96 03/27 1230 107 21 107/56 78 96 03/27 1215 108 21 102/57 76 95 03/27 1200 99.4 105 17 106/59 74 97 Room air / 1200 108 17 106/59 77 97 03/ 1145 109 22 111/57 80 96 03/27 1130 113 21 117/57 79 98 03/27 1115 109 19 114/56 80 96 08/18 1100 108 19 130/53 78 98 08/18 1046 110 20 156/65 93 100 08/18 1031 134 25 138/65 94 99 08/18 1016 109 28 141/67 96 93 08/18 1015 109 26 100 08/18 1000 108 27 127/64 89 100 08/18 0945 105 27 116/55 79 100 08/18 0930 135 26 120/57 82 99 08/18 0915 101 24 126/56 82 100 08/18 0900 98 16 112/59 77 100 08/18 0845 93 23 110/57 78 100 08/18 0830 95 21 112/59 81 100 08/18 0815 93 18 117/58 81 100 08/18 0800 99.5 117 21 113/69 83 98 Room air 08/18 0800 116 30 108/78 88 100 08/18 0745 86 27 104/69 77 99 08/18 0730 88 25 108/70 85 100 08/18 0718 83 14 101/56 73 100 24 hour I O ending at 0700: 08/19 0700 08/18 1900 Intake Total 3418.00 Output Total 1600 Balance 1818.00 Intake, IV 2818.00 Intake, Oral 600 Output, Urine 1600 PATIENT WEIGHT: Weight (lb): Weight (oz): Weight (kg): 77.700 Medications: Active Meds + DC'd Last 24 Hrs Vancomycin HCl (VANCOMYCIN HCL) 1,000 MG Q24H I V Sodium Chloride (SODIUM CHLORIDE 0.9%) 250 ML Meropenem (MEROPENEM) 500 MG Q6H IV Sterile Water (WATER FOR INJECTION) 10 ML Dextrose/Water (DEXTROSE 10% IN WATER) 250 ML DIR PRN IV (CKD) Insulin Human Regular (HumuLIN R) 100 UNIT ASDIR IV (CKD) Sodium Chloride (SODIUM CHLORIDE 0.9%) 99 ML Dextrose/Sodium Chloride (Dextrose 5% / 0.45% Na Cl) 1,000 ML .Q6H40M IV Clindamycin Phosphate (CLEOCIN 900 MG/NS 50 ML) 50 ML Q8H IV Famotidine (PEPCID) 20 MG Q12HR IV Clindamycin Phosphate (CLEOCIN 900 MG/NS 50 ML) 50 ML Q8H IV (CAN) Acetaminophen (TYLENOL) 650 MG Q6H PRN PRN PO Bisacodyl (DULCOLAX) 10 MG DAILY PRN PRN RECTAL Docusate Sodium (COLACE) 100 MG Q12H PRN PRN PO Hydrocodone Bitart/Acetaminophen (NORCO 5/325) 1 TAB Q4H PRN PRN PO Morphine Sulfate (morphine SULFATE) 2 MG Q4H PRN PRN IV Ondansetron HCl (ZOFRAN) 4 MG Q6H PRN PRN IV Mupirocin (BACTROBAN 2% 22 GM OINTMENT) 1 APPLIC BID NASAL Vancomycin HCl (VANCOMYCIN HCL) 1,750 MG ONCE ON E IV (DC) Sodium Chloride (NS 0.9%) 500 ML Heparin Sodium (HEPARIN 5000 UNITS/ML) 5,000 UNI T Q8HR SUBQ Piperacillin Sod/Tazobactam Sod (ZOSYN 3.375GM) 3.375 GM Q8H IV (DC) Sodium Chloride (SODIUM CHLORIDE 0.9% 100 ML) 1 00 ML Dextrose/Water (DEXTROSE 10% IN WATER) 250 ML DIR PRN IV (CKD) Dextrose/Water (Dextrose 10% 1,000 mL) 1,000 ML ASDIR IV (DC) Insulin Human Regular (HumuLIN R) 100 UNIT ASDIR IV (DC) Sodium Chloride (SODIUM CHLORIDE 0.9%) 99 ML Magnesium Sulfate (MAGNESIUM SULFATE 2GM/SWFI 50 ML) 50 ML ASDIR PRN IV Magnesium Sulfate (MAGNESIUM SULFATE 4GM/SWFI 10 0ML) 100 ML ASDIR PRN IV Miscellaneous Information (VANCOMYCIN PHARMACY T O DOSE) 1 EACH ASDIR IV (CKD) Potassium Chloride (POTASSIUM CHLORIDE 20MEQ TAB .ER) 20 MEQ ASDIR PRN PO Potassium Chloride (POTASSIUM CHLORIDE 20MEQ TAB .ER) 40 MEQ ASDIR PRN PO Potassium Chloride (POTASSIUM CHLORIDE 20MEQ TAB .ER) 60 MEQ ASDIR PRN PO (CKD) Potassium Chloride (KCL 20MEQ/SWFI 100ML) 100 ML ASDIR PRN IV Potassium Phosphate (POTASSIUM PHOSPHATE) 15 MM ASDIR PRN IV Sodium Chloride (SODIUM CHLORIDE 0.9%) 250 ML Sodium Chloride (SODIUM CHLORIDE 0.9%) 1,000 ML .Q5H IV (DC) Physical Exam General appearance: alert, awake, oriented Head/Eyes: normocephalic ENT: moist mucosal membranes Neck: no JVD Cardiovascular: regular rate rhythm, no heave Respiratory: aerating well, clear to auscultatio n, symmetric expansion, no distress Abdomen: non-tender, normal bowel sounds, soft, no distention Genitourinary: no bladder distention Extremities: right foot markedly swollen with violacous disoloratoin of dorsum and lateral area extending t o ankle. There were blisters with some blisters were open. 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 X 3, 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 Considered stroke alert: no Skin: no rash Psychiatry: normal affect, normal judgment/insig ht, normal mood Results Findings/Data: Laboratory Tests 08/19 08/19 08/19 08/19 08/19 [id number] Chemistry Sodium (134 - 147 mEq/L) 130 L Potassium (3.4 - 5.0 mEq/L) 3.0 L Chloride (100 - 108 mEq/L) 102 Carbon Dioxide (21 - 33 mEq/l) 22 Anion Gap (0 - 20) 10 BUN (7 - 18 mg/dL) 43 H Creatinine (0.6 - 1.3 mg/dL) 1.3 Glomerular Filtr Rate (90 - 95) 63.7 L Glucose (70 - 110 mg/dL) 359 H POC Glucose (70 - 110 MG/DL) 332 H 296 H Hemoglobin A1c (4.8 - 6.0 %A1C) > 14.0 H Calcium (8.0 - 10.5 mg/dL) 7.7 L Ionized Calcium Mitzi (1.09 - 1.30 1.07 L MMOL/L) Phosphorus (2.5 - 4.9 MG/DL) 2.9 Magnesium (1.80 - 2.40 mg/dL) 2.13 Total Bilirubin (0.0 - 1.0 mg/dL) 0.60 AST (15 - 37 IUnit/L) 27 ALT (30 - 65 IUnit/L) 13 L Total Alk Phosphatase (20 - 125 150 H IUnit/L) Total Protein (6.4 - 8.2 g/dL) 5.6 L Albumin (3.4 - 5.0 g/dL) 1.50 L 08/18 08/18 08/18 08/18 08/18 2246 2157 1854 1653 1503 Chemistry Sodium (134 - 147 mEq/L) 129 L Potassium (3.4 - 5.0 mEq/L) 3.3 L Chloride (100 - 108 mEq/L) 102 Carbon Dioxide (21 - 33 mEq/l) 20 L Anion Gap (0 - 20) 10 BUN (7 - 18 mg/dL) 44 H Creatinine (0.6 - 1.3 mg/dL) 1.3 Glomerular Filtr Rate (90 - 95) 63.7 L Glucose (70 - 110 mg/dL) 296 H POC Glucose (70 - 110 MG/DL) 265 H 226 H 223 H 186 H Calcium (8.0 - 10.5 mg/dL) 7.7 L Phosphorus (2.5 - 4.9 MG/DL) 2.8 Magnesium (1.80 - 2.40 mg/dL) 2.13 Albumin (3.4 - 5.0 g/dL) 1.70 L 08/18 08/18 08/18 08/18 08/18 1430 1430 1404 1309 1203 Chemistry Sodium (134 - 147 mEq/L) 131 L Potassium (3.4 - 5.0 mEq/L) 3.4 Chloride (100 - 108 mEq/L) 101 Carbon Dioxide (21 - 33 mEq/l) 24 Anion Gap (0 - 20) 9 BUN (7 - 18 mg/dL) 58 H Creatinine (0.6 - 1.3 mg/dL) 1.4 H Glomerular Filtr Rate (90 - 95) 58.3 L Glucose (70 - 110 mg/dL) 207 H POC Glucose (70 - 110 MG/DL) 195 H 213 H 201 H Calcium (8.0 - 10.5 mg/dL) 7.8 L Phosphorus (2.5 - 4.9 MG/DL) 2.2 L Magnesium (1.80 - 2.40 mg/dL) 2.09 Albumin (3.4 - 5.0 g/dL) 1.60 L Triglycerides (40 - 150 mg/dL) 161 H Cholesterol (<200 mg/dL) 90 LDL Cholesterol Measurd (0 - 100 mg/dL) 33.0 HDL Cholesterol (32 - 72 mg/dL) < 20.0 L Cholesterol/HDL Ratio (3.43 - 4.97 4.00 RATIO) TSH (0.42 - 5.47) 0.96 Free T4 (0.77 - 1.61 ng/dL) 0.7 L 08/18 08/18 08/18 08/18 1107 1004 0900 0823 Chemistry POC Glucose (70 - 110 MG/DL) 223 H 304 H 405 H 449 H Laboratory Tests 08/19 0340 Hematology WBC (4.5 - 11.0 x10 3/uL) 21.3 H RBC (4.00 - 5.60 x10 6/uL) 2.80 L Hgb (12.5 - 16.9 g/dL) 7.6 L Hct (37.5 - 50.7 %) 22.3 L MCV (81.0 - 99.0 fL) 79.6 L MCH (27.0 - 33.0 pg) 27.1 MCHC (33.0 - 37.0 g/dL) 34.1 RDW (11.5 - 14.5 %) 14.0 Plt Count (150 - 400 x10 3/uL) 227 MPV (7.0 - 9.0 fL) 9.9 H Neut % (Auto) (56.0 - 77.0 %) 89.9 H Lymph % (Auto) (14.0 - 32.0 %) 4.3 L Boundary % (Auto) (4.8 - 9.0 %) 3.1 L Eos % (Auto) (0.3 - 3.7 %) 0.0 L Baso % (Auto) (0.0 - 2.0 %) 0.3 Neut # (Auto) (2.0 - 7.6 x10 3/uL) 19.17 H Lymph # (Auto) (1.0 - 3.8 x10 3/uL) 0.91 L Boundary # (Auto) (0.1 - 0.8 x10 3/uL) 0.67 Eos # (Auto) (0.0 - 0.2 x10 3/uL) 0.01 Baso # (Auto) (0.0 - 0.2 x10 3/uL) 0.07 Abs Immat Gran (auto) (0.00 - 0.03 x10 3/uL) 0. 51 H Add Manual Diff NO Immature Gran % (0.0 - 2.0 %) 2.4 H Nucleated RBC % (0 - 0 %) 0.0 Nucleated RBCs # (Man) (0.0 - 0.1 x10 3/uL) 0.0 0 Diagnosis, Assessment Plan Free Text DxA P Notes Free text DxA P notes: DKA DM 2, poorly controlled severe gas gangrene, right foot/necrotizing fasc itis MRSA bacteremia ERIKA severe hyponatremia likely due to combination of severe hyperglycemia and dehydration from DKA sepsis due to foot infection DM neuropathy HTN anemia, acute due to blood loss Plans: - admit to ICU - continue IV fluids aggressively - monitor lytes and AG - IV insulin drip for now until gap closes - endo eval - keep on Vancomycin and Zosyn - podiatry eval - d.w Wojciech Hernandez - likely will need debridement - MRI of foot ordered - endo eval for management of DM. - HgbA1c of 13.4 - Urology consulted for hypodensity in prostate - ? abscess, not likely. not much symptoms - lovenox for VTE - check iron panel, TSH - fall precautions - not much pain needs likely due to neuropathy 08/19/2022 - blood cultures showing MRSA - Echo ordered - continue Vancomycin/Clinda and Meropenem. Id following - podiatry planning for I D today. Surgery on s dinora if needed to further debride his lower leg vs amputation. - WBC improving - will type and cross for blood and transfuse i f less than 7 gms - d.w at bedside - patient and is aware that he may require amputation if his tissues are non viable - remains on Insulin drip. blood sugars in the 200-300 range. AG has closed. endocrine is following. - keep in ICU Electronically Signed by Wilbert Ramires MD on at 0827 RPT #:[id number] END OF REPORT 2022-08-18 22:27:00-00:00 [id number] [place] [address] PATIENT NAME: KARMA ROWLAND ADMIT DATE: 08/18 ACCOUNT NO: [id number] ROOM NO: [facility] AGE: 56 REPORT TYPE: eECHOCARDIOGRAM REPORT SEX: M ADMITTING PHYSICIAN:Wilbert Ramires MD ATTENDING PHYSICIAN:Wilbert Ramires MD *[facility]* [address] [place] [id number] Transthoracic Echocardiogram Patient: Karma Rowland Study Date: 08/18/2022 BP: 156 / 65 Location: [facility] URN: [id number] : 1965 Age: 56 Height: 66 in / 167.6 cm Gender: M Weight: 170 .6 lb / 77.6 kg BMI/BSA: 27.6 kg/m 2 / 1.87 m 2 *Ordering Physician: * Rohit Benitez *Interpreting Physician: * Gianni Parham MD *Team Cdl Driver: * Nubia To Indications: Cardiac clearance. Study data: Transthoracic echocardiogram. Proced ure: Transthoracic echocardiography was performed. Image quality wa s fair. Complete 2D, complete spectral Doppler, and color Doppler. Lo cation: Bedside. Patient status: Inpatient. Patient room number: M325. Study status: Routine. Findings Left ventricle: The cavity size is normal. Wall thickness is at the upper limits of normal. Systolic function is nor mal. The estimated ejection fraction is 55-59%. Wall motion is norm al; there are no regional wall motion abnormalities. Doppler para meters are consistent with abnormal left ventricular relaxation (grade 1 diastolic PATIENT NAME: KARMA ROWLAND [id number] dysfunction). Right ventricle: The cavity size is normal. Syst olic function is normal. TAPSE measurement is estimated at 22 mm. Insufficient tricuspid regurgitation jet to estimate RVSP. Left atrium: The atrium is mildly dilated. Right atrium: The atrium is normal in size. Aorta: Aortic root: The aortic root is upper nor mal in size. Aortic valve: The valve is structurally normal. The valve is trileaflet. There is no evidence of stenosis. Th ere is no regurgitation. Mitral valve: The valve is structurally normal. There is no evidence of stenosis. There is no regurgitation. Tricuspid valve: The valve is structurally felisa l. There is trivial regurgitation. Pulmonic valve: Not well visualized. The valve i s structurally normal. There is physiologic regurgitation. Pericardium: A trivial pericardial effusion is i dentified posterior to the heart. Pulmonary arteries: The main pulmonary artery is normal-sized. Systemic veins: Inferior vena cava: The vessel is at the upper l imits of normal in size. The respirophasic diameter changes are in the no rmal range (= 50%). Measurements Left ventricle Value Ref SAMANTHA, LAX 4.9 cm 4.2 - 5.8 ESD, LAX 3.5 cm 2.5 - 4.0 ESD/bsa, LAX 1.9 cm/m 2 1.3 - 2.1 FS, LAX 29 % 25 - 43 ESD/bsa major 3.5 cm/m 2 --------- ax, A4C SAMANTHA/bsa minor 3.5 cm/m 2 --------- ax, A4C SMAANTHA major ax, 8.4 cm --------- A2C ESD major ax, 6.9 cm --------- A2C SAMANTHA/bsa major 4.5 cm/m 2 --------- ax, A2C ESD/bsa major 3.7 cm/m 2 --------- ax, A2C PW, ED 1.0 cm 0.6 - 1.0 IVS/PW, ED 1.04 --------- EF 56 % 52 - 72 E', lat yonatan, 8.9 cm/sec >=10.0 TDI E/e', lat yonatan, 10 --------- TDI E', med yonatan, 8.7 cm/sec >=7.0 TDI E/e', med yonatan, 10 --------- PATIENT NAME: KARMA ROWLAND [id number] TDI E', avg, TDI 8.8 cm/sec --------- E/e', avg, TDI 10 <=14 LVOT Value Ref Diam, S 2.14 cm --------- Area 3.6 cm 2 --------- Peak jayda, S 1.4 m/sec --------- Mean jayda, S 0.96 m/sec --------- VTI, S 17.5 cm --------- Peak grad, S 8 mm Hg --------- Mean grad, S 4 mm Hg --------- SV 62 ml --------- Qs 6.66 L/min --------- Qs/bsa 3.6 L/(min-m 2) --------- SV/bsa 33 ml/m 2 --------- Ventricular septum Value Ref IVS, ED 1.0 cm 0.6 - 1.0 Right ventricle Value Ref TAPSE, MM 2.2 cm 1.7 - 3.1 RVOT Value Ref Peak v, S 1.07 m/sec --------- Peak grad, S 5 mm Hg --------- Left atrium Value Ref AP dim, ES 3.44 cm 3.00 - 4.00 Vol/bsa, ES, 35 ml/m 2 12 - 37 1-p A4C Vol, ES, 2-p 71 ml --------- Vol/bsa, ES, 38 ml/m 2 16 - 34 2-p Vol/bsa, ES, 36 ml/m 2 16 - 34 A/L AP dim, ES MM 4.0 cm 3.0 - 4.0 LA/Ao root 1.01 --------- ratio, MM Right atrium Value Ref Area, ES 13 cm 2 10 - 18 SI dim, ES, A4C 5.5 cm 3.4 - 5.3 SI dim/bsa, ES, 2.9 cm/m 2 1.8 - 3.0 A4C Vol, ES, A/L 25 ml --------- Vol, ES, 1-p 26 ml --------- A4C Vol/bsa, ES, 14 ml/m 2 11 - 39 1-p A4C Aortic valve Value Ref Leaflet sep, MM 2.48 cm --------- PATIENT NAME: KARMA ROWLAND [id number] Peak v, S 1.43 m/sec --------- Mean v, S 1.12 m/sec --------- VTI, S 20.7 cm --------- Mean grad, S 5.3 mm Hg --------- Peak grad, S 8.2 mm Hg --------- LVOT/AV, VTI 0.84 --------- ratio SHRUTHI, VTI 3.02 cm 2 --------- LVOT/AV, Vpeak 0.97 --------- ratio SHRUTHI, Vmax 3.49 cm 2 --------- Mitral valve Value Ref Peak E 0.87 m/sec --------- Peak A 0.94 m/sec --------- Mean v, D 0.81 m/sec --------- VTI leaflet 25.4 cm --------- coapt Decel time 179 ms --------- PHT 53 ms --------- Mean grad, D 3.1 mm Hg --------- Peak grad, D 6.2 mm Hg --------- Peak E/A ratio 0.92 --------- MVA, PHT 4.2 cm 2 --------- Pulmonic valve Value Ref NV v, ED 1.07 m/sec --------- Aortic root Value Ref Root diam, ED 3.92 cm --------- MM Conclusions Summary: 1. Left ventricle: The cavity size is normal. Wa ll thickness is at the upper limits of normal. Systolic function is no rmal. The estimated ejection fraction is 55-59%. Wall motion is nor mal; there are no regional wall motion abnormalities. Doppler par ameters are consistent with abnormal left ventricular relaxation (grad e 1 diastolic dysfunction). 2. Left atrium: The atrium is mildly dilated. 3. Pericardium, extracardiac: A trivial pericard ial effusion is identified posterior to the heart. Prepared and electronically signed by Gianni Parham MD 08/18/2022 22:27 PATIENT NAME: KARMA ROWLAND [id number] at 2227 PATIENT NAME: KARMA ROWLAND [id number] 1896-03-27 19:00:00-00:00 [id number] [place] [address] PATIENT NAME: KARMA ROWLAND ADMIT DATE: 08/18 ACCOUNT NO: [id number] ROOM NO: G.458 AGE: 56 REPORT TYPE: CONSULTATION REPORT SEX: M ADMITTING PHYSICIAN:Wilbert Ramires MD ATTENDING PHYSICIAN:Wilbert Ramires MD CONSULTATION DATE:08/18/2022 CONSULTATION: Wilbert Ramires MD HISTORY OF PRESENT ILLNESS: This is a 56-year-ol d gentleman admitted with a right foot infection, altered mental status, who also had DKA. During workup, there is a questionable hypodensity in the prost ate. He denies any dysuria, urgency, frequency, hematuria. He is a poor hist orian. PAST MEDICAL HISTORY: Diabetes, neuropat hy, hypertension, hyperlipidemia, DKA. PAST SURGICAL HISTORY: Foot and ankle surgery. FAMILY HISTORY: Noncontributory. SOCIAL HISTORY: Denies current alcohol, tobacco or drug use. HOME MEDICATIONS: Reviewed from the JUL. ALLERGIES: NO KNOWN DRUG ALLERGIES. REVIEW OF SYSTEMS: A 14-point review of system w as obtained and is negative other than HPI. PHYSICAL EXAMINATION: VITAL SIGNS: Afebrile, T-max 37.5, heart rate 10 7, blood pressure 107/55, 96% on room air. GENERAL: Alert. No acute distress, nontoxic. HEENT: Confused. EXTREMITIES: Moving all extremities well. ABDOMEN: Soft, nontender, nondistended. No guard ing or rebound. LABORATORY DATA: White blood cell count 26.5, he moglobin 9, platelets 355. Creatinine 1.4. Urine pending. IMAGING STUDIES: CT scan of the abdomen and pelv is was reviewed in detail. There is a questionable 3 cm area in the left in ferior pelvis, imvolving the prostate and left seminal vesicle. ASSESSMENT AND PLAN: A 56-year-old male admitted without any particular urination issue. Persistant elevated white blood count. There is a question of hyperdensity in the prostate. We will get a P SA and order an MRI of the prostate. Discussed this wit h the patient and the family in detail and answered PATIENT NAME: KARMA ROWLAND [id number] all questions. Dictated By: David Bass MD Date Dictated: 08/18/2022 19:00:04 Date Transcribed: 08/18/2022 20:29:11 CHIRAG/MARIA ESTHER/JEMIMA Receipt ID: [id number] Authenticated and Edited by David Bass MD O n 09/16/22 4:52:30 PM at 0459 PATIENT NAME: MYESHA ROWLANDALDO [id number] 5613-03-27 17:07:00-00:[address] [facility] ([facility]) Infect Disease Consult Note REPORT#:[id number] REPORT STATUS: Signed DATE:08/18/22 TIME: 170 PATIENT: KARMA ROWLAND UNIT #: [id number] ROOM/BED: [place] [address] : 63 AGE: 56 SEX: M ATTEND: Mikayla Ramires MD ADM AUTHOR: Anthony Curtis MD * ALL edits or amendments must be made on the [employer]/computer document * History of Present Illness Requesting Clinician: Alma De La Rosa NP Reason for consult: RLE necrotizing fasciitis HPI: Mr. Rowland is a 56-year-old male with history of diabetes mellitus type 2, hypertension who was admitted [facility] today with altered mental status and right-sided foot infection. According to him , he noticed a blister on his right foot around 3 days ago. His foot got progr essively more swollen and erythema extended proximally to his lateral foot and ankle. He came to ED for further evaluation and management. Here, patient is afebrile (Tmax 99.5 F). However, he is tachycardic and has a leukocytosi s of 26.5. CT abdomen and pelvis with contrast is concerning for possible prostate abscess. CT of lower extremity without contrast s hows extensive soft tissue edema with mottled gas in the subcutaneous and intramu scular compartments of the foot, compatible with gas -forming infection. Patient's blood cultures hav e come back positive for MRSA in 2 out of 2 sets. He is cu rrently on combination of clindamycin, piperacillin -tazobactam and vancomycin. Infectious disease c onsultation is requested for antimicrobial recommendations. Patient has been seen by podiatry service and plan for taking him to the OR noted. 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 It w as somewhat limited due to patient's limited responses. The pertinent positives and negatives that I could gather are detailed in HPI. Objective General VS/I O: Vital Signs Date Temp Pulse Resp B/P B/P Mean Pulse Ox FiO2 08/18 97.8-99.5 82-135 14-30 87-156/51-78 65-96 93-100 Last Documented: Result Date Time Pulse Ox 96 08/18 1637 Pulse 109 08/18 1637 Resp 23 08/18 1637 B/P 116/58 08/18 1630 B/P Mean 80 08/18 1630 O2 Delivery Room air 08/18 1600 Temp 98.9 08/18 1600 Vital Signs: Date Time Temp Pulse Resp B/P B/P Pulse O2 O2 F low FiO2 Mean Ox Delivery Rate 08/18 1637 109 23 96 08/18 1630 107 21 116/58 80 96 08/18 1615 106 20 108/58 77 97 08/18 1600 98.9 109 22 101/58 72 96 Room air 08/18 1600 104 22 101/58 77 96 08/18 1545 101 21 97/56 73 95 08/18 1530 103 23 97/56 73 96 08/18 1515 101 23 99/56 74 96 08/18 1500 100 23 104/55 78 95 08/18 1445 113 25 111/58 80 97 08/18 1430 101 19 95 08/18 1415 100 20 108/51 74 96 08/18 1400 105 20 103/58 75 98 08/18 1345 102 22 103/58 77 96 08/18 1337 102 19 97 08/18 1330 101 21 98/56 74 95 08/18 1315 103 21 95/53 69 95 08/18 1300 102 22 94/53 70 96 08/18 1245 104 22 104/57 76 96 08/18 1230 107 21 107/56 78 96 08/18 1215 108 21 102/57 76 95 08/18 1200 99.4 105 17 106/59 74 97 Room air 08/18 1200 108 17 106/59 77 97 08/18 1145 109 22 111/57 80 96 08/18 1130 113 21 117/57 79 98 08/18 1115 109 19 114/56 80 96 03/ 1100 108 19 130/53 78 98 03/ 1046 110 20 156/65 93 100 03/ 1031 134 25 138/65 94 99 03/ 1016 109 28 141/67 96 93 / 1015 109 26 100 03/ 1000 108 27 127/64 89 100 03/ 0945 105 27 116/55 79 100 / 0930 135 26 120/57 82 99 03/ 0915 101 24 126/56 82 100 / 0900 98 16 112/59 77 100 03/ 0845 93 23 110/57 78 100 / 0830 95 21 112/59 81 100 / 0815 93 18 117/58 81 100 08/18 0800 99.5 117 21 113/69 83 98 Room air 08/18 0800 116 30 108/78 88 100 08/18 0745 86 27 104/69 77 99 03/ 0730 88 25 108/70 85 100 / 0718 83 14 101/56 73 100 / 0700 82 17 87/58 68 100 / 0530 85 16 107/58 75 98 / 0500 86 21 99/59 73 99 / 0430 89 20 94/55 70 99 / 0415 88 16 90/51 65 100 / 0400 91 28 110/56 80 97 / 0152 97.8 97 18 112/55 74 100 Room air 24 hour I O ending at 0700: 08/18 0700 08/17 1900 Intake Total Output Total Balance Patient 77.7 kg Weight Weight Stated/Reported Measurement Method PATIENT WEIGHT: Weight (lb): Weight (oz): Weight (kg): 77.700 Physical Exam General appearance: alert, awake, no acute distr ess Wound/incision: Location: right foot currently dressed Head/Eyes: atraumatic, normocephalic Neck: supple/no meningismus, no JVD Cardiovascular: tachycardia, no murmur Respiratory: clear to auscultation, aerating wel l, symmetric expansion Abdomen: non-tender, soft, no distention Extremities: edema, RLE pitting edema noted 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, 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 Considered stroke alert: no Skin: lesions, no rash Psychiatry: unable to evaluate Results Findings/Data: Laboratory Tests 08/18 0305 Blood Gas Puncture Site R Radial O2 Saturation (90 - 100 %) 97.9 ABG pH (7.35 - 7.45) 7.309 L ABG pCO2 (35.0 - 45 mmHg) 22.3 *L ABG pO2 (80 - 100.0 mmHg) 108.0 H ABG PO2/FiO2 Ratio (mm/Hg) 514.28 ABG HCO3 (22.0 - 26.0 MMOL/L) 11.2 *L ABG Total CO2 11.9 ABG Base Excess (-4.0 - 4.0 MMOL/L) -15.1 L Neto Test Positive O2 Delivery Device Room Air FiO2 (%) 21 Laboratory Tests 08/18 08/18 08/18 08/18 08/18 1430 1430 1404 1309 1203 Chemistry Sodium (134 - 147 mEq/L) 131 L Potassium (3.4 - 5.0 mEq/L) 3.4 Chloride (100 - 108 mEq/L) 101 Carbon Dioxide (21 - 33 mEq/l) 24 Anion Gap (0 - 20) 9 BUN (7 - 18 mg/dL) 58 H Creatinine (0.6 - 1.3 mg/dL) 1.4 H Glomerular Filtr Rate (90 - 95) 58.3 L Glucose (70 - 110 mg/dL) 207 H POC Glucose (70 - 110 MG/DL) 195 H 213 H 201 H Calcium (8.0 - 10.5 mg/dL) 7.8 L Phosphorus (2.5 - 4.9 MG/DL) 2.2 L Magnesium (1.80 - 2.40 mg/dL) 2.09 Albumin (3.4 - 5.0 g/dL) 1.60 L Triglycerides (40 - 150 mg/dL) 161 H Cholesterol (<200 mg/dL) 90 LDL Cholesterol Measurd (0 - 100 mg/dL) 33.0 HDL Cholesterol (32 - 72 mg/dL) < 20.0 L Cholesterol/HDL Ratio (3.43 - 4.97 4.00 RATIO) TSH (0.42 - 5.47) 0.96 Free T4 (0.77 - 1.61 ng/dL) 0.7 L 08/18 08/18 08/18 08/18 08/18 1107 1004 0900 0823 0549 Chemistry POC Glucose (70 - 110 MG/DL) 223 H 304 H 405 H 449 H Hemoglobin A1c (4.8 - 6.0 %A1C) 13.4 H 08/18 08/18 08/18 0549 0203 0203 Chemistry Sodium (134 - 147 mEq/L) 121 *L 115 *L Potassium (3.4 - 5.0 mEq/L) 4.1 4.4 Chloride (100 - 108 mEq/L) 90 L 84 L Carbon Dioxide (21 - 33 mEq/l) 15 L 14 L Anion Gap (0 - 20) 20 21 H BUN (7 - 18 mg/dL) 62 H 60 H Creatinine (0.6 - 1.3 mg/dL) 1.7 H 1.9 H Glomerular Filtr Rate (90 - 95) 46.2 L 40.4 L Glucose (70 - 110 mg/dL) 692 *H 709 *H Lactic Acid (0.4 - 1.9 mmol/L) 1.2 Calcium (8.0 - 10.5 mg/dL) 7.5 L 8.5 Phosphorus (2.5 - 4.9 MG/DL) 4.8 Magnesium (1.80 - 2.40 mg/dL) 2.34 Total Bilirubin (0.0 - 1.0 mg/dL) 0.40 Direct Bilirubin (0.0 - 0.30 MG/DL) 0.20 Indirect Bilirubin (MG/DL) 0.20 AST (15 - 37 IUnit/L) 14 L ALT (30 - 65 IUnit/L) 10 L Total Alk Phosphatase (20 - 125 IUnit/L) 157 H Troponin I High Sens (0 - 54 ng/L) 4 Total Protein (6.4 - 8.2 g/dL) 6.4 Albumin (3.4 - 5.0 g/dL) 1.60 L 1.80 L Lipase (13 - 57 U/L) 24 Laboratory Tests 08/18 0205 Hematology WBC (4.5 - 11.0 x10 3/uL) 26.5 H RBC (4.00 - 5.60 x10 6/uL) 3.36 L Hgb (12.5 - 16.9 g/dL) 9.0 L Hct (37.5 - 50.7 %) 28.3 L MCV (81.0 - 99.0 fL) 84.2 MCH (27.0 - 33.0 pg) 26.8 L MCHC (33.0 - 37.0 g/dL) 31.8 L RDW (11.5 - 14.5 %) 14.5 Plt Count (150 - 400 x10 3/uL) 355 MPV (7.0 - 9.0 fL) 9.9 H Add Manual Diff YES Seg Neutrophils % (37 - 69 %) 70.0 H Band Neutrophils % (0.0 - 10.0 %) 12.7 H Lymphocytes % (Manual) (23 - 55 %) 3.7 L Monocytes % (Manual) (0 - 10 %) 9.1 Metamyelocytes (0.0 - 0.0 %) 2.7 H Myelocytes (0.0 - 0.0 %) 0.9 H Promyelocytes (0 - 0 %) 0.9 H Platelet Estimate (ADEQUATE THOUSAND) Adequate Plt Morphology Comment NORMAL Polychromasia 3+ Poikilocytosis 3+ Anisocytosis 1+ Macrocytosis 1+ Laboratory Tests 08/18 08/18 0207 0205 Serology Influenza Type A (PCR) (Negative) Negative Influenza Type B (PCR) (Negative) Negative SARS-CoV-2 Ag (Rapid) (Negative) Negative Laboratory Tests 08/18 08/18 0549 0203 Toxicology Salicylates (0.0 - 20.0 mg/dL) 5.6 Acetone, Quant (Neg - <20 mg/dL) Large - 80-100 mg/dL Microbiology Date/Time Procedure - Status Source Growth 08/18 206 Group A Streptococcus Screen (VERONICA) - COMP THROAT 08/18 206 Streptococcus Culture - COMP THROAT Radiology data: Recent Impressions: RADIOLOGY - XR CHEST 2 V 08/18 0201 Report Impression - Status: SIGNED Entered: 08/18/2022 0317 IMPRESSION: Ill-defined somewhat nodular opacity measuring 3 .2 cm laterally in the right mid lung suspicious for rounded pneumo ro given provided history, but underlying neoplasm can not be excl uded. Followup radiographs are recommended after appropriate tr eatment in order to document complete resolution and exclude an unde rlying process or neoplasm. Impression By: Mark - Dom Adams M.D. RADIOLOGY - XR FOOT 3 + V RT 08/18 0238 Report Impression - Status: SIGNED Entered: 08/18/2022 0358 IMPRESSION: No acute osseous findings. No convincing evidenc e for osteomyelitis. MRI is more sensitive for detecti ng osteomyelitis. Impression By: Ankur Ladd M.D. CAT SCAN - CT ABD PELVIS W/CONT 08/18 0339 Report Impression - Status: SIGNED Entered: 08/18/2022 0546 IMPRESSION: 3.3 cm hypodensity in the left posterior prostat e or seminal vesicle. This could represent an abscess. Contra st-enhanced MRI of the pelvis would be helpful for further evaluati on. No acute intra-abdominal findings otherwise. Impression By: Ankur Ladd M.D. CAT SCAN - CT LOWER EXTRM W/O C RT 08/18 0645 Report Impression - Status: SIGNED Entered: 08/18/2022 08 IMPRESSION: Extensive soft tissue edema with mottled gas in the subcutaneous and intramuscular compartments of the foot abhishek tible with gas-forming infection. Disease extends into the visualized distal leg. Impression By: Jamel Dorantes M.D. Diagnosis, Assessment Plan Free Text DxA P Notes Free text DxA P notes: Assessment: Mr. Rowland is a 56-year-old male with: *MRSA bacteremia *Severe sepsis due to above *Right lower extremity necrotizing fasciitis *DKA *ERIKA *Hyponatremia *Diabetic neuropathy *Diabetes mellitus type 2 *Hypertension Plan: -Discontinue piperacillin-tazobactam. -Start meropenem at a renally adjusted dose. -Agree with vancomycin and clindamycin and would continue same for now. -Would recommend early surgical intervention. -Repeat blood cultures in a.m. to document clear ance of bacteremia. -Continue to repeat serial blood cultures till b acteremia clears. -Recommend TTE. -Further recommendations to follow based upon cl inical course. Thank you for the consult. We will follow the david cavazos with you. Electronically Signed by Anthony Curtis MD on 07/24 12/14 at 4421 RPT #:[id number] END OF REPORT 2022-08-18 17:04:00-00:[address] [facility] ([facility]) Endocrinology Progress Note REPORT#:[id number] REPORT STATUS: Signed DATE:03/27/23 TIME: 1704 PATIENT: KARMA ROWLAND UNIT #: [id number] ROOM/BED: [address] : 63 AGE: 56 SEX: M ATTEND: Mikayla Ramires MD ADM AUTHOR: Braxton Chapin MD * ALL edits or amendments must be made on the el [employer]/computer document * Subjective Patient reports: no complaints Objective General VS: Last Documented: Result Date Time Pulse Ox 96 08/18 1637 Pulse 109 08/18 1637 Resp 23 08/18 1637 B/P 116/58 08/18 1630 B/P Mean 80 08/18 1630 O2 Delivery Room air 08/18 1600 Temp 37.2 08/18 1600 PATIENT WEIGHT: Weight (lb): Weight (oz): Weight (kg): 77.700 Medications: Active Meds + DC'd Last 24 Hrs Vancomycin HCl (VANCOMYCIN HCL) 1,000 MG Q24H IV Sodium Chloride (SODIUM CHLORIDE 0.9%) 250 ML Dextrose/Water (DEXTROSE 10% IN WATER) 250 ML DIR PRN IV (CKD) Insulin Human Regular (HumuLIN R) 100 UNIT ASDIR IV (CKD) Sodium Chloride (SODIUM CHLORIDE 0.9%) 99 ML Dextrose/Sodium Chloride (Dextrose 5% / 0.45% Na Cl) 1,000 ML .Q6H40M IV Clindamycin Phosphate (CLEOCIN 900 MG/NS 50 ML) 50 ML Q8H IV Famotidine (PEPCID) 20 MG Q12HR IV Clindamycin Phosphate (CLEOCIN 900 MG/NS 50 ML) 50 ML Q8H IV (CAN) Acetaminophen (TYLENOL) 650 MG Q6H PRN PRN PO Bisacodyl (DULCOLAX) 10 MG DAILY PRN PRN RECTAL Docusate Sodium (COLACE) 100 MG Q12H PRN PRN PO Hydrocodone Bitart/Acetaminophen (NORCO 5/325) 1 TAB Q4H PRN PRN PO Morphine Sulfate (morphine SULFATE) 2 MG Q4H PRN PRN IV Ondansetron HCl (ZOFRAN) 4 MG Q6H PRN PRN IV Mupirocin (BACTROBAN 2% 22 GM OINTMENT) 1 APPLIC BID NASAL Vancomycin HCl (VANCOMYCIN HCL) 1,750 MG ONCE ON E IV (DC) Sodium Chloride (NS 0.9%) 500 ML Heparin Sodium (HEPARIN 5000 UNITS/ML) 5,000 UNI T Q8HR SUBQ Piperacillin Sod/Tazobactam Sod (ZOSYN 3.375GM) 3.375 GM Q8H IV Sodium Chloride (SODIUM CHLORIDE 0.9% 100 ML) 1 00 ML Dextrose/Water (DEXTROSE 10% IN WATER) 250 ML DIR PRN IV (CKD) Dextrose/Water (Dextrose 10% 1,000 mL) 1,000 ML ASDIR IV (DC) Insulin Human Regular (HumuLIN R) 100 UNIT ASDIR IV (DC) Sodium Chloride (SODIUM CHLORIDE 0.9%) 99 ML Magnesium Sulfate (MAGNESIUM SULFATE 2GM/SWFI 50 ML) 50 ML ASDIR PRN IV Magnesium Sulfate (MAGNESIUM SULFATE 4GM/SWFI 10 0ML) 100 ML ASDIR PRN IV Miscellaneous Information (VANCOMYCIN PHARMACY T O DOSE) 1 EACH ASDIR IV (CKD) Potassium Chloride (POTASSIUM CHLORIDE 20MEQ TAB .ER) 20 MEQ ASDIR PRN PO Potassium Chloride (POTASSIUM CHLORIDE 20MEQ TAB .ER) 40 MEQ ASDIR PRN PO Potassium Chloride (POTASSIUM CHLORIDE 20MEQ TAB .ER) 60 MEQ ASDIR PRN PO (CKD) Potassium Chloride (KCL 20MEQ/SWFI 100ML) 100 ML ASDIR PRN IV Potassium Phosphate (POTASSIUM PHOSPHATE) 15 MM ASDIR PRN IV Sodium Chloride (SODIUM CHLORIDE 0.9%) 250 ML Sodium Chloride (SODIUM CHLORIDE 0.9%) 1,000 ML .Q5H IV (DC) Sodium Chloride (SODIUM CHLORIDE 0.9%) 1,000 ML .Q10H IV (DC) Insulin Human Regular (HumuLIN R) 100 UNIT X1ED STA IV (DC) Sodium Chloride (SODIUM CHLORIDE 0.9%) 99 ML Iopamidol (ISOVUE-300 100ML) 100 ML .STK-MED ONE IV (DC) Sodium Chloride (SODIUM CHLORIDE 0.9%) 1,310 ML ONCE ONE IV (DC) Ondansetron HCl (ZOFRAN) 4 MG X1ED PRN PRN IV (D C) Ketorolac Tromethamine (TORADOL) 15 MG X1ED STA IV (DC) Sodium Chloride (SODIUM CHLORIDE 0.9%) 1,000 ML X1ED STA IV (DC) Physical Exam General appearance: lethargic, alert, awake Considered stroke alert: no Diagnosis, Assessment Plan Hospital course to date: Laboratory Tests: 08/18 08/18 08/18 08/18 08/18 1430 1430 1404 1309 1203 Chemistry Sodium (134 - 147 mEq/L) 131 L Potassium (3.4 - 5.0 mEq/L) 3.4 Chloride (100 - 108 mEq/L) 101 Carbon Dioxide (21 - 33 mEq/l) 24 Anion Gap (0 - 20) 9 BUN (7 - 18 mg/dL) 58 H Creatinine (0.6 - 1.3 mg/dL) 1.4 H Glomerular Filtr Rate (90 - 95) 58.3 L Glucose (70 - 110 mg/dL) 207 H POC Glucose (70 - 110 MG/DL) 195 H 213 H 201 H Calcium (8.0 - 10.5 mg/dL) 7.8 L Phosphorus (2.5 - 4.9 MG/DL) 2.2 L Magnesium (1.80 - 2.40 mg/dL) 2.09 Albumin (3.4 - 5.0 g/dL) 1.60 L Triglycerides (40 - 150 mg/dL) 161 H Cholesterol (<200 mg/dL) 90 LDL Cholesterol Measurd (0 - 100 mg/dL) 33.0 HDL Cholesterol (32 - 72 mg/dL) < 20.0 L Cholesterol/HDL Ratio (3.43 - 4.97 4.00 RATIO) TSH (0.42 - 5.47) 0.96 Free T4 (0.77 - 1.61 ng/dL) 0.7 L 08/18 08/18 08/18 08/18 08/18 1107 1004 0900 0823 0549 Chemistry POC Glucose (70 - 110 MG/DL) 223 H 304 H 405 H 449 H Hemoglobin A1c (4.8 - 6.0 %A1C) 13.4 H 08/18 08/18 08/18 0549 0305 0207 Blood Gas Puncture Site R Radial O2 Saturation (90 - 100 %) 97.9 ABG pH (7.35 - 7.45) 7.309 L ABG pCO2 (35.0 - 45 mmHg) 22.3 *L ABG pO2 (80 - 100.0 mmHg) 108.0 H ABG PO2/FiO2 Ratio (mm/Hg) 514.28 ABG HCO3 (22.0 - 26.0 MMOL/L) 11.2 *L ABG Total CO2 11.9 ABG Base Excess (-4.0 - 4.0 MMOL/L) -15.1 L Neto Test Positive O2 Delivery Device Room Air FiO2 (%) 21 Chemistry Sodium (134 - 147 mEq/L) 121 *L Potassium (3.4 - 5.0 mEq/L) 4.1 Chloride (100 - 108 mEq/L) 90 L Carbon Dioxide (21 - 33 mEq/l) 15 L Anion Gap (0 - 20) 20 BUN (7 - 18 mg/dL) 62 H Creatinine (0.6 - 1.3 mg/dL) 1.7 H Glomerular Filtr Rate (90 - 95) 46.2 L Glucose (70 - 110 mg/dL) 692 *H Calcium (8.0 - 10.5 mg/dL) 7.5 L Phosphorus (2.5 - 4.9 MG/DL) 4.8 Magnesium (1.80 - 2.40 mg/dL) 2.34 Albumin (3.4 - 5.0 g/dL) 1.60 L Serology Influenza Type A (PCR) (Negative) Negative Influenza Type B (PCR) (Negative) Negative Toxicology Acetone, Quant (Neg - <20 mg/dL) Large - 80-100 mg/dL 08/18 08/18 08/18 0205 0203 0203 Chemistry Sodium (134 - 147 mEq/L) 115 *L Potassium (3.4 - 5.0 mEq/L) 4.4 Chloride (100 - 108 mEq/L) 84 L Carbon Dioxide (21 - 33 mEq/l) 14 L Anion Gap (0 - 20) 21 H BUN (7 - 18 mg/dL) 60 H Creatinine (0.6 - 1.3 mg/dL) 1.9 H Glomerular Filtr Rate (90 - 95) 40.4 L Glucose (70 - 110 mg/dL) 709 *H Lactic Acid (0.4 - 1.9 mmol/L) 1.2 Calcium (8.0 - 10.5 mg/dL) 8.5 Total Bilirubin (0.0 - 1.0 mg/dL) 0.40 Direct Bilirubin (0.0 - 0.30 MG/DL) 0.20 Indirect Bilirubin (MG/DL) 0.20 AST (15 - 37 IUnit/L) 14 L ALT (30 - 65 IUnit/L) 10 L Total Alk Phosphatase (20 - 125 IUnit/L) 157 H Troponin I High Sens (0 - 54 ng/L) 4 Total Protein (6.4 - 8.2 g/dL) 6.4 Albumin (3.4 - 5.0 g/dL) 1.80 L Lipase (13 - 57 U/L) 24 Hematology WBC (4.5 - 11.0 x10 3/uL) 26.5 H RBC (4.00 - 5.60 x10 6/uL) 3.36 L Hgb (12.5 - 16.9 g/dL) 9.0 L Hct (37.5 - 50.7 %) 28.3 L MCV (81.0 - 99.0 fL) 84.2 MCH (27.0 - 33.0 pg) 26.8 L MCHC (33.0 - 37.0 g/dL) 31.8 L RDW (11.5 - 14.5 %) 14.5 Plt Count (150 - 400 x10 3/uL) 355 MPV (7.0 - 9.0 fL) 9.9 H Add Manual Diff YES Seg Neutrophils % (37 - 69 %) 70.0 H Band Neutrophils % (0.0 - 10.0 %) 12.7 H Lymphocytes % (Manual) (23 - 55 %) 3.7 L Monocytes % (Manual) (0 - 10 %) 9.1 Metamyelocytes (0.0 - 0.0 %) 2.7 H Myelocytes (0.0 - 0.0 %) 0.9 H Promyelocytes (0 - 0 %) 0.9 H Platelet Estimate (ADEQUATE THOUSAND) Adequate Plt Morphology Comment NORMAL Polychromasia 3+ Poikilocytosis 3+ Anisocytosis 1+ Macrocytosis 1+ Serology SARS-CoV-2 Ag (Rapid) (Negative) Negative Toxicology Salicylates (0.0 - 20.0 mg/dL) 5.6 Microbiology: Date/Time Procedure - Status Source Growth 08/18 914 Wound Culture - ORD FOOT 08/18 206 Wound Culture - RECD FOOT 08/18 206 Group A Streptococcus Screen (VERONICA) - COMP THROAT 08/18 206 Streptococcus Culture - COMP THROAT 08/18 202 Blood Culture - RES BLOOD 08/18 202 Blood Culture Gram Stain - RES BLOOD 03/27 0203 Blood Culture - RES BLOOD 08/18 0203 Blood Culture Gram Stain - RES BLOOD Recent Impressions: RADIOLOGY - XR CHEST 2 V 08/18 0201 Report Impression - Status: SIGNED Entered: 08/18/2022 0317 IMPRESSION: Ill-defined somewhat nodular opacity measuring 3 .2 cm laterally in the right mid lung suspicious for rounded pneumo ro given provided history, but underlying neoplasm can not be excl uded. Followup radiographs are recommended after appropriate tr eatment in order to document complete resolution and exclude an unde rlying process or neoplasm. Impression By: [email or web address] Cr Adams M.D. RADIOLOGY - XR FOOT 3 + V RT 08/18 0238 Report Impression - Status: SIGNED Entered: 08/18/2022 0358 IMPRESSION: No acute osseous findings. No convincing evidenc e for osteomyelitis. MRI is more sensitive for detecti ng osteomyelitis. Impression By: Ankur Ladd M.D. CAT SCAN - CT ABD PELVIS W/CONT 08/18 0339 Report Impression - Status: SIGNED Entered: 08/18/2022 0546 IMPRESSION: 3.3 cm hypodensity in the left posterior prostat e or seminal vesicle. This could represent an abscess. Contra st-enhanced MRI of the pelvis would be helpful for further evaluati on. No acute intra-abdominal findings otherwise. Impression By: Ankur Ladd M.D. CAT SCAN - CT LOWER EXTRM W/O C RT 08/18 0645 Report Impression - Status: SIGNED Entered: 08/18/2022 0827 IMPRESSION: Extensive soft tissue edema with mottled gas in the subcutaneous and intramuscular compartments of the foot abhishek tible with gas-forming infection. Disease extends into the visualized distal leg. Impression By: Jamel Dorantes M.D. 1. Diabetes mellitus type 2 uncontrolled with co mplications. 2. DKA 3. Cellulitis and gangrene of the right foot. 4. Sepsis 5. Altered mental status 6. High LFTs Blood sugar 994cr176 mg/dL.A gap 21 HbA1c 13.4% White count 26.5 Sodium 121. Adjust insulin drip settings Start by mouth feedings Wound care and IV antibiotics. Electronically Signed by Braxton Chapin MD on at 1707 RPT #:[id number] END OF REPORT 2022-08-18 16:05:00-00:[address] [facility] ([facility]) Cardiology Consultation REPORT#:[id number] REPORT STATUS: Signed DATE:08/18/22 TIME: 1605 PATIENT: KARMA ROWLAND UNIT #: [id number] ROOM/BED: [place] [id number] : 63 AGE: 56 SEX: M ATTEND: Mikayla Ramires MD ADM AUTHOR: Rohit Benitez CLAY MILLER * ALL edits or amendments must be made on the [employer]/computer document * Rohit Benitez 08/18/22 1605: History of Present Illness HPI Requesting Clinician: Reason for consult: Preop eval/cardiac clearance Chief complaint: foot infection PCP: PCP: No Primary or Family Physician HPI: Mr. Rowland is a 56-year-old male with past [facility] history of hypertension, diabetes with neuropathy, and hyperlipid emia. Patient presented for evaluation of altered mental status, we akness and elevated blood sugar. Diagnosed with DKA and sepsis, work-up show marlena grene of right foot. Denies chest pain, pressure or shortness of breath. Cardiology consulted for pr eop eval/cardiac clearance. History - Adult longitudinal Additional medical history: DM 2 since age 33 DM neuropathy HTN hyperlipidemia Additional surgical history: as above Additional family history: reviewed and non contributory Alcohol use: Denies EtOH use Drug use: Denies recreational drugs Smoking status for patients 13 years old or olde r: Never Smoker Other social history: Local resident, Good socia l support Allergies: Coded Allergies: No Known Allergies (03/23/11) Review of Systems Constitutional: generalized weakness. Cardiovascular: Denies: chest pain, dyspnea on exertion, palpita tions. Objective General VS/I O: Vital Signs: Date Time Temp Pulse Resp B/P B/P Pulse O2 O2 F low FiO2 Mean Ox Delivery Rate 08/18 1345 102 22 103/58 77 96 08/18 1337 102 19 97 08/18 1330 101 21 98/56 74 95 03 1315 103 21 95/53 69 95 03 1300 102 22 94/53 70 96 03 1245 104 22 104/57 76 96 03 1230 107 21 107/56 78 96 08/18 1215 108 21 102/57 76 95 03 1200 99.4 105 17 106/59 74 97 Room air 08/18 1200 108 17 106/59 77 97 03 1145 109 22 111/57 80 96 03 1130 113 21 117/57 79 98 03 1115 109 19 114/56 80 96 03 1100 108 19 130/53 78 98 03 1046 110 20 156/65 93 100 08/18 1031 134 25 138/65 94 99 08/18 1016 109 28 141/67 96 93 08/18 1015 109 26 100 08/18 1000 108 27 127/64 89 100 08/18 0945 105 27 116/55 79 100 08/18 0930 135 26 120/57 82 99 08/18 0915 101 24 126/56 82 100 08/18 0900 98 16 112/59 77 100 08/18 0845 93 23 110/57 78 100 08/18 0830 95 21 112/59 81 100 08/18 0815 93 18 117/58 81 100 08/18 0800 99.5 117 21 113/69 83 98 Room air 08/18 0800 116 30 108/78 88 100 08/18 0745 86 27 104/69 77 99 08/18 0730 88 25 108/70 85 100 08/18 0718 83 14 101/56 73 100 08/18 0700 82 17 87/58 68 100 08/18 0530 85 16 107/58 75 98 08/18 0500 86 21 99/59 73 99 08/18 0430 89 20 94/55 70 99 08/18 0415 88 16 90/51 65 100 08/18 0400 91 28 110/56 80 97 08/18 0152 97.8 97 18 112/55 74 100 Room air 24 hour I O ending at 0700: 08/18 0700 08/17 1900 Intake Total Output Total Balance Patient 171 lb Weight Weight Stated/Reported Measurement Method PATIENT WEIGHT: Weight (lb): Weight (oz): Weight (kg): 77.700 Medications: Active Meds + DC'd Last 24 Hrs Vancomycin HCl (VANCOMYCIN HCL) 1,000 MG Q24H IV Sodium Chloride (SODIUM CHLORIDE 0.9%) 250 ML Dextrose/Water (DEXTROSE 10% IN WATER) 250 ML DIR PRN IV (UNV) Insulin Human Regular (HumuLIN R) 100 UNIT ASDIR IV (CKD) Sodium Chloride (SODIUM CHLORIDE 0.9%) 99 ML Dextrose/Sodium Chloride (Dextrose 5% / 0.45% Na Cl) 1,000 ML .Q6H40M IV Clindamycin Phosphate (CLEOCIN 900 MG/NS 50 ML) 50 ML Q8H IV Famotidine (PEPCID) 20 MG Q12HR IV Clindamycin Phosphate (CLEOCIN 900 MG/NS 50 ML) 50 ML Q8H IV (CAN) Acetaminophen (TYLENOL) 650 MG Q6H PRN PRN PO Bisacodyl (DULCOLAX) 10 MG DAILY PRN PRN RECTAL Docusate Sodium (COLACE) 100 MG Q12H PRN PRN PO Hydrocodone Bitart/Acetaminophen (NORCO 5/325) 1 TAB Q4H PRN PRN PO Morphine Sulfate (morphine SULFATE) 2 MG Q4H PRN PRN IV Ondansetron HCl (ZOFRAN) 4 MG Q6H PRN PRN IV Mupirocin (BACTROBAN 2% 22 GM OINTMENT) 1 APPLIC BID NASAL Vancomycin HCl (VANCOMYCIN HCL) 1,750 MG ONCE ON E IV (DC) Sodium Chloride (NS 0.9%) 500 ML Heparin Sodium (HEPARIN 5000 UNITS/ML) 5,000 UNI T Q8HR SUBQ Piperacillin Sod/Tazobactam Sod (ZOSYN 3.375GM) 3.375 GM Q8H IV Sodium Chloride (SODIUM CHLORIDE 0.9% 100 ML) 1 00 ML Dextrose/Water (DEXTROSE 10% IN WATER) 250 ML DIR PRN IV (CKD) Dextrose/Water (Dextrose 10% 1,000 mL) 1,000 ML ASDIR IV (DC) Insulin Human Regular (HumuLIN R) 100 UNIT ASDIR IV (DCr) Sodium Chloride (SODIUM CHLORIDE 0.9%) 99 ML Magnesium Sulfate (MAGNESIUM SULFATE 2GM/SWFI 50 ML) 50 ML ASDIR PRN IV Magnesium Sulfate (MAGNESIUM SULFATE 4GM/SWFI 10 0ML) 100 ML ASDIR PRN IV Miscellaneous Information (VANCOMYCIN PHARMACY T O DOSE) 1 EACH ASDIR IV (CKD) Potassium Chloride (POTASSIUM CHLORIDE 20MEQ TAB .ER) 20 MEQ ASDIR PRN PO Potassium Chloride (POTASSIUM CHLORIDE 20MEQ TAB .ER) 40 MEQ ASDIR PRN PO Potassium Chloride (POTASSIUM CHLORIDE 20MEQ TAB .ER) 60 MEQ ASDIR PRN PO (CKD) Potassium Chloride (KCL 20MEQ/SWFI 100ML) 100 ML ASDIR PRN IV Potassium Phosphate (POTASSIUM PHOSPHATE) 15 MM ASDIR PRN IV Sodium Chloride (SODIUM CHLORIDE 0.9%) 250 ML Sodium Chloride (SODIUM CHLORIDE 0.9%) 1,000 ML .Q5H IV (DC) Sodium Chloride (SODIUM CHLORIDE 0.9%) 1,000 ML .Q10H IV (DC) Insulin Human Regular (HumuLIN R) 100 UNIT X1ED STA IV (DC) Sodium Chloride (SODIUM CHLORIDE 0.9%) 99 ML Iopamidol (ISOVUE-300 100ML) 100 ML .STK-MED ONE IV (DC) Sodium Chloride (SODIUM CHLORIDE 0.9%) 1,310 ML ONCE ONE IV (DC) Ondansetron HCl (ZOFRAN) 4 MG X1ED PRN PRN IV (D C) Ketorolac Tromethamine (TORADOL) 15 MG X1ED STA IV (DC) Sodium Chloride (SODIUM CHLORIDE 0.9%) 1,000 ML X1ED STA IV (DC) Physical Exam General appearance: confused, alert, awake, no a cute distress, no respiratory distress Neck: no bruit/NL carotids, no JVD Cardiovascular: CV assessment: abnormal S1/S2, regular rate and rhythm, no ectopy Respiratory: clear to auscultation, no distress Lower extremity: LE assessment: edema 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 Considered stroke alert: no Wound/incision: Location: right foot Results Findings/Data: Laboratory Tests 08/18 0305 Blood Gas Puncture Site R Radial O2 Saturation (90 - 100 %) 97.9 ABG pH (7.35 - 7.45) 7.309 L ABG pCO2 (35.0 - 45 mmHg) 22.3 *L ABG pO2 (80 - 100.0 mmHg) 108.0 H ABG PO2/FiO2 Ratio (mm/Hg) 514.28 ABG HCO3 (22.0 - 26.0 MMOL/L) 11.2 *L ABG Total CO2 11.9 ABG Base Excess (-4.0 - 4.0 MMOL/L) -15.1 L Neto Test Positive O2 Delivery Device Room Air FiO2 (%) 21 Laboratory Tests 08/18 08/18 08/18 08/18 08/18 1430 1430 1404 1309 1203 Chemistry Sodium (134 - 147 mEq/L) 131 L Potassium (3.4 - 5.0 mEq/L) 3.4 Chloride (100 - 108 mEq/L) 101 Carbon Dioxide (21 - 33 mEq/l) 24 Anion Gap (0 - 20) 9 BUN (7 - 18 mg/dL) 58 H Creatinine (0.6 - 1.3 mg/dL) 1.4 H Glomerular Filtr Rate (90 - 95) 58.3 L Glucose (70 - 110 mg/dL) 207 H POC Glucose (70 - 110 MG/DL) 195 H 213 H 201 H Calcium (8.0 - 10.5 mg/dL) 7.8 L Phosphorus (2.5 - 4.9 MG/DL) 2.2 L Magnesium (1.80 - 2.40 mg/dL) 2.09 Albumin (3.4 - 5.0 g/dL) 1.60 L Triglycerides (40 - 150 mg/dL) 161 H Cholesterol (<200 mg/dL) 90 LDL Cholesterol Measurd (0 - 100 mg/dL) 33.0 HDL Cholesterol (32 - 72 mg/dL) < 20.0 L Cholesterol/HDL Ratio (3.43 - 4.97 4.00 RATIO) TSH (0.42 - 5.47) 0.96 Free T4 (0.77 - 1.61 ng/dL) 0.7 L 08/18 08/18 08/18 08/18 08/18 1107 1004 0900 0823 0549 Chemistry POC Glucose (70 - 110 MG/DL) 223 H 304 H 405 H 449 H Hemoglobin A1c (4.8 - 6.0 %A1C) 13.4 H 08/18 08/18 08/18 0549 0203 0203 Chemistry Sodium (134 - 147 mEq/L) 121 *L 115 *L Potassium (3.4 - 5.0 mEq/L) 4.1 4.4 Chloride (100 - 108 mEq/L) 90 L 84 L Carbon Dioxide (21 - 33 mEq/l) 15 L 14 L Anion Gap (0 - 20) 20 21 H BUN (7 - 18 mg/dL) 62 H 60 H Creatinine (0.6 - 1.3 mg/dL) 1.7 H 1.9 H Glomerular Filtr Rate (90 - 95) 46.2 L 40.4 L Glucose (70 - 110 mg/dL) 692 *H 709 *H Lactic Acid (0.4 - 1.9 mmol/L) 1.2 Calcium (8.0 - 10.5 mg/dL) 7.5 L 8.5 Phosphorus (2.5 - 4.9 MG/DL) 4.8 Magnesium (1.80 - 2.40 mg/dL) 2.34 Total Bilirubin (0.0 - 1.0 mg/dL) 0.40 Direct Bilirubin (0.0 - 0.30 MG/DL) 0.20 Indirect Bilirubin (MG/DL) 0.20 AST (15 - 37 IUnit/L) 14 L ALT (30 - 65 IUnit/L) 10 L Total Alk Phosphatase (20 - 125 IUnit/L) 157 H Troponin I High Sens (0 - 54 ng/L) 4 Total Protein (6.4 - 8.2 g/dL) 6.4 Albumin (3.4 - 5.0 g/dL) 1.60 L 1.80 L Lipase (13 - 57 U/L) 24 Laboratory Tests 08/18 0205 Hematology WBC (4.5 - 11.0 x10 3/uL) 26.5 H RBC (4.00 - 5.60 x10 6/uL) 3.36 L Hgb (12.5 - 16.9 g/dL) 9.0 L Hct (37.5 - 50.7 %) 28.3 L MCV (81.0 - 99.0 fL) 84.2 MCH (27.0 - 33.0 pg) 26.8 L MCHC (33.0 - 37.0 g/dL) 31.8 L RDW (11.5 - 14.5 %) 14.5 Plt Count (150 - 400 x10 3/uL) 355 MPV (7.0 - 9.0 fL) 9.9 H Add Manual Diff YES Seg Neutrophils % (37 - 69 %) 70.0 H Band Neutrophils % (0.0 - 10.0 %) 12.7 H Lymphocytes % (Manual) (23 - 55 %) 3.7 L Monocytes % (Manual) (0 - 10 %) 9.1 Metamyelocytes (0.0 - 0.0 %) 2.7 H Myelocytes (0.0 - 0.0 %) 0.9 H Promyelocytes (0 - 0 %) 0.9 H Platelet Estimate (ADEQUATE THOUSAND) Adequate Plt Morphology Comment NORMAL Polychromasia 3+ Poikilocytosis 3+ Anisocytosis 1+ Macrocytosis 1+ Laboratory Tests 08/18 08/18 0207 0205 Serology Influenza Type A (PCR) (Negative) Negative Influenza Type B (PCR) (Negative) Negative SARS-CoV-2 Ag (Rapid) (Negative) Negative Laboratory Tests 08/18 08/18 0549 0203 Toxicology Salicylates (0.0 - 20.0 mg/dL) 5.6 Acetone, Quant (Neg - <20 mg/dL) Large - 80-100 mg/dL Microbiology Date/Time Procedure - Status Source Growth 08/18 206 Group A Streptococcus Screen (VERONICA) - COMP THROAT 08/18 206 Streptococcus Culture - COMP THROAT Laboratory Tests 08/18 08/18 1430 0549 Chemistry Magnesium (1.80 - 2.40 mg/dL) 2.09 2.34 Radiology Data: Recent Impressions: RADIOLOGY - XR CHEST 2 V 08/18 0201 Report Impression - Status: SIGNED Entered: 08/18/2022 0317 IMPRESSION: Ill-defined somewhat nodular opacity measuring 3 .2 cm laterally in the right mid lung suspicious for rounded pneumo ro given provided history, but underlying neoplasm can not be excl uded. Followup radiographs are recommended after appropriate tr eatment in order to document complete resolution and exclude an unde rlying process or neoplasm. Impression By: [email or web address] - Dom Adams M.D. RADIOLOGY - XR FOOT 3 + V RT 08/18 0238 Report Impression - Status: SIGNED Entered: 08/18/2022 0358 IMPRESSION: No acute osseous findings. No convincing evidenc e for osteomyelitis. MRI is more sensitive for detecti ng osteomyelitis. Impression By: [email or web address] - Jay Ladd M.D. CAT SCAN - CT ABD PELVIS W/CONT 08/18 0339 Report Impression - Status: SIGNED Entered: 08/18/2022 0546 IMPRESSION: 3.3 cm hypodensity in the left posterior prostat e or seminal vesicle. This could represent an abscess. Contra st-enhanced MRI of the pelvis would be helpful for further evaluati on. No acute intra-abdominal findings otherwise. Impression By: Ankur Ladd M.D. CAT SCAN - CT LOWER EXTRM W/O C RT 08/18 0645 Report Impression - Status: SIGNED Entered: 08/18/2022 0827 IMPRESSION: Extensive soft tissue edema with mottled gas in the subcutaneous and intramuscular compartments of the foot abhishek tible with gas-forming infection. Disease extends into the visualized distal leg. Impression By: Jamel Dorantes M.D. Diagnosis, Assessment Plan Free Text DxA P Notes Free Text DxA P Notes: Impression: 1. Preop eval/cardiac clearance 2. Infected right foot gas gangrene 3. DKA 4. Sepsis 5. Hypertension 6. Anemia Recommendation: Patient presented for evalua tion of altered mental status, weakness and elevated blood sugar. Diagnosed with DKA and seps is. 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 Known cardiac history of hypertensio n and hyperlipidemia. Denies prior history of CAD, CHF or arrhythmia. EKG abn ormal, NSR with anterior infarct. Vital signs stable. No prior cardiac wo rk-up. -Check echocardiogram -Monitor telemetry for arrhythmia -Monitor blood pressure trend -Wound care and IV antibiotic therapy -Supportive care Thank you for the kind refer ral. Plan of care discussed with family, RN and Dr. Parham. Gianni Parham 08/19/22 1032: Diagnosis, Assessment Plan Additional Comments: Patient was seen and examined at bedside , agree with above assessment and plan as documented by nurse practitioner with modifications. Patient presented with possible gas gangrene. Echocardiogram shows pres erved LVEF. Undergoing low to intermediate risk procedure. Okay to proceed. We will follow patient closely. Awaiting for lower extremity arterial Doppler fo r further evaluation. at 1033 Electronically Signed by Rohit Benitez NP on 0 08/19/22 at 5992 RPT #:[id number] END OF REPORT 2022-08-18 15:26:00-00:00 [id number] [address] PATIENT NAME: KARMA ROWLAND ADMIT DATE: 08/18 ACCOUNT NO: [id number] ROOM NO: [id number] AGE: 56 REPORT TYPE: CONSULTATION REPORT SEX: M ADMITTING PHYSICIAN:Wilbert Ramires MD ATTENDING PHYSICIAN:Wilbert Ramires MD CONSULTATION DATE: 08/18/2022 ENDOCRINE CONSULTATION PATIENT OF: Wilbert Ramires MD Thank you very much for referring this patient. HISTORY OF PRESENT ILLNESS: This is a 56-year-ol d gentleman, who is referred to me for evaluation of uncontrolled di abetes mellitus, diabetic ketoacidosis. The patient reportedly is a known diabetic for last 10 years and takes oral hypoglycemics at home. He comes to [facility] with a history of cellulitis and swelling of the right foot. He mcbride d also altered mental status and at the time of admission, his blood sugars w ere significantly elevated at 692 and anion gap was around 21. The patient also has a history of hypertension and hyperlipidemia. PHYSICAL EXAMINATION: GENERAL: Today, the patient is alert, awake. He looks slightly dehydrated. VITAL SIGNS: His heart rate is around 78, blood pressure is 110/70 mmHg. HEENT: Essentially unremarkable. NECK: Thyroid is palpable. Clinically, he is bennett r euthyroid. CHEST: Diminished bilateral vesicular breathing. He has mild bronchospasm. CARDIOVASCULAR: Both first and second heart soun ds. There is no third or fourth heart sounds. Ejection sound, grade II/ . EXTREMITIES: The patient has evidence of diabeti c sensorimotor neuropathy in both lower extremities and he has cellulitis and ulcers and blisters of the right foot. LABORATORY DATA: His sodium is 121, potassium is 4.1. Blood sugar is 692 and the anion gap was around 21. BUN and creatinine elevated at 62 and 1.7. His white count is elevated at 26.5 and hemoglobin 9 .0 with hematocrit of 28.3. CLINICAL IMPRESSION: Diabete s mellitus type 2, uncontrolled with complications; diabetic ketoacidosis, sepsis, gas gangr jamarcus of the right foot with cellulitis, hyponatremia, history of hypertension and anemia . PLAN: The plan at this time is to contin ue the insulin drip, monitor his blood sugars closely, and start him on the p.o. feedin gs. Thanks again for referring this patient. I will be following this patient with you. PATIENT NAME: KARMA ROWLAND [id number] Dictated By: Braxton Chapin MD Date Dictated: 08/18/2022 15:26:32 Date Transcribed: 08/18/2022 18:38:46 /[facility] [place] Receipt ID: [id number] Authenticated by Logan Chapin MD On 08:32:44 PM Electronically Signed by Braxton Chapin MD on at 0833 PATIENT NAME: KARMA ROWLAND [id number] 11:20:00-00:00 [facility] General Surgery Consult Note REPORT#:[id number] REPORT STATUS: Signed DATE:08/18/22 TIME: 1120 PATIENT: KARMA ROWLAND UNIT #: [id number] ROOM/BED: [place] [id number] : 63 AGE: 56 SEX: M ATTEND: Mikayla Ramires MD ADM AUTHOR: Forrest Oswald MD * ALL edits or amendments must be made on the [employer]/computer document * History of Present Illness Chief complaint: right foot infection HPI: Pt is a 56 yo m who was admi tted for DKA and sepsis. Workup showed signs of gas ganrene of the right foot. I have been a sked to see him for the possibility of extension into the lower leg. History - Adult longitudinal Additional medical history: DM 2 since age 33 DM neuropathy HTN hyperlipidemia Additional surgical history: as above Additional family history: reviewed and non contributory Alcohol use: Denies EtOH use Drug use: Denies recreational drugs Smoking status for patients 13 years old or olde r: Never Smoker Other social history: Local resident, [employer] support Medications: Current Hospital Medications: Anti-Infective Agents Sig/Jan Start time Last Medication Dose Route Stop Time Status Admin Vancomycin HCl 1,000 MG Q24H 08/19 0900 AC (VANCOMYCIN HCL) IV 08/25 0859 Sodium Chloride 250 ML (SODIUM CHLORIDE 0.9%) Clindamycin Phosphate 50 ML Q8H 08/18 1000 CAN (CLEOCIN 900 MG/NS IV 08/23 0959 50 ML) Vancomycin HCl 1,750 MG ONCE ONE 08/18 0800 DC 08/18 (VANCOMYCIN HCL) IV 08/18 0944 0824 Sodium Chloride 500 ML (NS 0.9%) Piperacillin Sod/ 3.375 GM Q8H 08/18 0600 AC Tazobactam Sod IV 08/25 0559 0616 (ZOSYN 3.375GM) Sodium Chloride 100 ML (SODIUM CHLORIDE 0.9% 100 ML) Miscellaneous 1 EACH ASDIR 08/18 0545 CKD Information IV 09/17 0544 (VANCOMYCIN PHARMACY TO DOSE) Blood Formation,Coagulation Sig/Jan Start time Last Medication Dose Route Stop Time Status Admin Heparin Sodium 5,000 UNIT Q8HR 08/18 0600 AC 0 08/18 (HEPARIN 5000 UNITS/ SUBQ 09/17 0559 0616 ML) Central Nervous System Agents Sig/Jan Start time Last Medication Dose Route Stop Time Status Admin Acetaminophen 650 MG Q6H PRN PRN 08/18 0945 AC (TYLENOL) PO 09/17 0944 Hydrocodone Bitart/ 1 TAB Q4H PRN PRN 08/18 094 5 AC Acetaminophen PO 08/23 0944 (NORCO 5/325) Morphine Sulfate 2 MG Q4H PRN PRN 08/18 0945 AC (morphine SULFATE) IV 08/23 0944 Magnesium Sulfate 50 ML ASDIR PRN 08/18 0545 AC (MAGNESIUM SULFATE IV 09/17 0544 2GM/SWFI 50ML) Magnesium Sulfate 100 ML ASDIR PRN 08/18 0545 A C (MAGNESIUM SULFATE IV 09/17 0544 4GM/SWFI 100ML) Ketorolac 15 MG X1ED STA 08/18 0150 DC 08/18 Tromethamine IV 08/18 015 0227 (TORADOL) Diagnostic Agents Sig/Jan Start time Last Medication Dose Route Stop Time Status Admin Iopamidol 100 ML .STK-MED ONE 08/18 0341 DC (ISOVUE-300 100ML) IV 08/18 034 0341 Electrolytic, Caloric, And Daniel Sig/Jan Start time Last Medication Dose Route Stop Time Status Admin Dextrose/Water 250 ML ASDIR PRN 08/18 0545 CKD (DEXTROSE 10% IN IV 09/17 0544 WATER) Dextrose/Water 1,000 ML ASDIR 08/18 0545 AC (Dextrose 10% 1,000 IV 09/17 0544 mL) Potassium Chloride 20 MEQ ASDIR PRN 08/18 0545 AC (POTASSIUM CHLORIDE PO 09/17 0544 20MEQ TAB.ER) Potassium Chloride 40 MEQ ASDIR PRN 08/18 0545 AC (POTASSIUM CHLORIDE PO 09/17 0544 20MEQ TAB.ER) Potassium Chloride 60 MEQ ASDIR PRN 08/18 0545 CKD (POTASSIUM CHLORIDE PO 09/17 0544 20MEQ TAB.ER) Potassium Chloride 100 ML ASDIR PRN 08/18 0545 AC (KCL 20MEQ/SWFI IV 09/17 0544 100ML) Potassium Phosphate 15 MM ASDIR PRN 08/18 0545 AC (POTASSIUM PHOSPHATE) IV 09/17 0544 Sodium Chloride 250 ML (SODIUM CHLORIDE 0.9%) Sodium Chloride 1,000 ML .Q5H 08/18 0545 AC (SODIUM CHLORIDE IV 09/17 0544 0925 0.9%) Sodium Chloride 1,000 ML .Q10H 08/18 0515 DC (SODIUM CHLORIDE IV 08/19 0412 0.9%) Sodium Chloride 1,310 ML ONCE ONE 08/18 0230 DC 08/18 (SODIUM CHLORIDE IV 08/18 0231 0228 0.9%) Sodium Chloride 1,000 ML X1ED STA 08/18 0150 DC 08/18 (SODIUM CHLORIDE IV 08/18 0249 0404 0.9%) Gastrointestinal Drugs Sig/Jan Start time Last Medication Dose Route Stop Time Status Admin Famotidine 20 MG Q12HR 08/18 1100 AC (PEPCID) IV 09/17 1059 Bisacodyl 10 MG DAILY PRN PRN 08/18 0945 AC (DULCOLAX) RECTAL 09/17 0944 Docusate Sodium 100 MG Q12H PRN PRN 08/18 0945 AC (COLACE) PO 09/17 0944 Ondansetron HCl 4 MG Q6H PRN PRN 08/18 0945 AC (ZOFRAN) IV 09/17 0944 Ondansetron HCl 4 MG X1ED PRN PRN 08/18 0200 DC 08/18 (ZOFRAN) IV 08/19 0159 0227 Hormones And Synthetic Substit Sig/Jan Start time Last Medication Dose Route Stop Time Status Admin Insulin Human Regular 100 UNIT ASDIR 08/18 0545 CKD (HumuLIN R) IV 09/17 0544 Sodium Chloride 99 ML (SODIUM CHLORIDE 0.9%) Insulin Human Regular 100 UNIT X1ED STA 08/18 0 412 DC 08/18 (HumuLIN R) IV 08/22 0811 0433 Sodium Chloride 99 ML (SODIUM CHLORIDE 0.9%) Skin And Mucous Membrane Agent Sig/Jan Start time Last Medication Dose Route Stop Time Status Admin Mupirocin 1 APPLIC BID 08/18 0900 AC 08/18 (BACTROBAN 2% 22 GM NASAL 08/22 2101 0924 OINTMENT) Allergies: Coded Allergies: No Known Allergies (03/23/11) Review of Systems Constitutional: malaise. Denies: chills, fat igue, fever, generalized weakness, lethargy, recent wt loss, other. Skin: Denies: abrasion, bruising, contusion, diaphores is, ecchymosis, itching, laceration, rash, swelling, other. Allergy/Immun: Denies: allergic reaction, anaphylaxis, hives, i tching, rhinorrhea, sneezing, other. Eyes: Denies: redness, discharge, visual loss/blurred, itching, diplopia, eye pain, photophobia, swelling, other. ENT: Denies: ear drainage, ear ringing, earache, hear ing loss, mouth pain, nasal congestion, nose bleeding, sinus problem, sore t hroat, throat pain, throat swelling, tongue pain, tongue swelling, toothach e, voice change, other. Respiratory: Denies: OVIEDO (dyspnea on exertion), hemoptysis, n on productive cough, parox nocturnal dyspnea, pleurisy, pleuritic pain, pneumonia, productive cough (sputum ), SOB, wheezing, other. Cardiovascular: Denies: chest pain, OVIEDO (dyspnea on exer tion), edema, orthopnea, palpitations, parox nocturnal dyspnea, other. GI: Denies: abdominal pain, anorexia, constipation, diarrhea, dysphagia, GERD, hematemesis, hematochezia, h iatal hernia, melena, nausea, rectal pain, vomiting, other. : Denies: dysuria, flank pain, frequency, hematuria, nocturia, penile discharge, penile lesion, testicular pa in, testicular swelling, urgency, urinary retention, other. Musculoskeletal: extremity pain (right foot). Heme: Denies: adenopathy, bleeding, bruising, petechia e, other. Endocrine: Denies: cold intolerance, heat intolerance, poly dipsia, polyphagia, polyuria, weight gain, weight loss, other. Neuro: Denies: bladder dysfunction, bowel dysfunction, change in LOC, confusion, dizziness, focal weakness, gait problem, headach e, lightheaded, numbness, seizure, slurred speech, spinning sensation, syn cope, unable to speak, vision change, weakness, other. Psych: Denies: agitation, anxiety, auditory hallucinati on, change in mental status, confusion, delusional, depre ssion, homicidal ideation, hostile, insomnia, stress , suicidal ideation, visual hallucination, other . Objective Physical Exam VS/I O Last Documented: Result Date Time Pulse Ox 100 08/18 1046 B/P 156/65 08/18 1046 B/P Mean 93 08/18 1046 Pulse 110 08/18 1046 Resp 20 08/18 1046 O2 Delivery Room air 08/18 0800 Temp 99.5 08/18 0800 Vital Signs Date Temp Pulse Resp B/P B/P Mean Pulse Ox FiO2 08/18 97.8-99.5 82-135 14-30 87-156/51-78 65-96 93-100 24 hour I O ending at 0700: 08/18 0700 08/17 1900 Intake Total Output Total Balance Patient 77.7 kg Weight Weight Stated/Reported Measurement Method PATIENT WEIGHT: Weight (lb): Weight (oz): Weight (kg): 77.700 General appearance: alert, awake, oriented, no a cute distress, pleasant, conversational, mental status normal, no respira tory distress Wound/incision: Location: right foot. Dressing in place. Nontender along t he lower leg and calf. HEENT: atraumatic, normocephalic Neck: supple/no meningismus Cardiovascular: regular rate and rhythm Chest: normal appearance Respiratory: aerating well Abdomen: non-tender, soft, no distention, no gua rding Extremities: moves all, right foot pain. dressin g in place. 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 x 3, CNII-XII intact, 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 Considered stroke alert: no Skin: normal color, normal temperature, normal t urgor Psychiatry: normal affect, normal judgment/insig ht, normal mood Results Findings/Data: Laboratory Tests: 08/18 08/18 08/18 08/18 08/18 1107 1004 0900 0823 0549 Chemistry POC Glucose (70 - 110 MG/DL) 223 H 304 H 405 H 449 H Hemoglobin A1c (4.8 - 6.0 %A1C) 13.4 H 08/18 08/18 08/18 0549 0305 0207 Blood Gas Puncture Site R Radial O2 Saturation (90 - 100 %) 97.9 ABG pH (7.35 - 7.45) 7.309 L ABG pCO2 (35.0 - 45 mmHg) 22.3 *L ABG pO2 (80 - 100.0 mmHg) 108.0 H ABG PO2/FiO2 Ratio (mm/Hg) 514.28 ABG HCO3 (22.0 - 26.0 MMOL/L) 11.2 *L ABG Total CO2 11.9 ABG Base Excess (-4.0 - 4.0 MMOL/L) -15.1 L Neto Test Positive O2 Delivery Device Room Air FiO2 (%) 21 Chemistry Sodium (134 - 147 mEq/L) 121 *L Potassium (3.4 - 5.0 mEq/L) 4.1 Chloride (100 - 108 mEq/L) 90 L Carbon Dioxide (21 - 33 mEq/l) 15 L Anion Gap (0 - 20) 20 BUN (7 - 18 mg/dL) 62 H Creatinine (0.6 - 1.3 mg/dL) 1.7 H Glomerular Filtr Rate (90 - 95) 46.2 L Glucose (70 - 110 mg/dL) 692 *H Calcium (8.0 - 10.5 mg/dL) 7.5 L Phosphorus (2.5 - 4.9 MG/DL) 4.8 Magnesium (1.80 - 2.40 mg/dL) 2.34 Albumin (3.4 - 5.0 g/dL) 1.60 L Serology Influenza Type A (PCR) (Negative) Negative Influenza Type B (PCR) (Negative) Negative Toxicology Acetone, Quant (Neg - <20 mg/dL) Large - 80-100 mg/dL 08/18 08/18 08/18 0205 0203 0203 Chemistry Sodium (134 - 147 mEq/L) 115 *L Potassium (3.4 - 5.0 mEq/L) 4.4 Chloride (100 - 108 mEq/L) 84 L Carbon Dioxide (21 - 33 mEq/l) 14 L Anion Gap (0 - 20) 21 H BUN (7 - 18 mg/dL) 60 H Creatinine (0.6 - 1.3 mg/dL) 1.9 H Glomerular Filtr Rate (90 - 95) 40.4 L Glucose (70 - 110 mg/dL) 709 *H Lactic Acid (0.4 - 1.9 mmol/L) 1.2 Calcium (8.0 - 10.5 mg/dL) 8.5 Total Bilirubin (0.0 - 1.0 mg/dL) 0.40 Direct Bilirubin (0.0 - 0.30 MG/DL) 0.20 Indirect Bilirubin (MG/DL) 0.20 AST (15 - 37 IUnit/L) 14 L ALT (30 - 65 IUnit/L) 10 L Total Alk Phosphatase (20 - 125 IUnit/L) 157 H Troponin I High Sens (0 - 54 ng/L) 4 Total Protein (6.4 - 8.2 g/dL) 6.4 Albumin (3.4 - 5.0 g/dL) 1.80 L Lipase (13 - 57 U/L) 24 Hematology WBC (4.5 - 11.0 x10 3/uL) 26.5 H RBC (4.00 - 5.60 x10 6/uL) 3.36 L Hgb (12.5 - 16.9 g/dL) 9.0 L Hct (37.5 - 50.7 %) 28.3 L MCV (81.0 - 99.0 fL) 84.2 MCH (27.0 - 33.0 pg) 26.8 L MCHC (33.0 - 37.0 g/dL) 31.8 L RDW (11.5 - 14.5 %) 14.5 Plt Count (150 - 400 x10 3/uL) 355 MPV (7.0 - 9.0 fL) 9.9 H Add Manual Diff YES Seg Neutrophils % (37 - 69 %) 70.0 H Band Neutrophils % (0.0 - 10.0 %) 12.7 H Lymphocytes % (Manual) (23 - 55 %) 3.7 L Monocytes % (Manual) (0 - 10 %) 9.1 Metamyelocytes (0.0 - 0.0 %) 2.7 H Myelocytes (0.0 - 0.0 %) 0.9 H Promyelocytes (0 - 0 %) 0.9 H Platelet Estimate (ADEQUATE THOUSAND) Adequate Plt Morphology Comment NORMAL Polychromasia 3+ Poikilocytosis 3+ Anisocytosis 1+ Macrocytosis 1+ Serology SARS-CoV-2 Ag (Rapid) (Negative) Negative Toxicology Salicylates (0.0 - 20.0 mg/dL) 5.6 Microbiology: Date/Time Procedure - Status Source Growth 08/18 0915 Wound Culture - ORD FOOT 08/18 206 Wound Culture - RECD FOOT 08/18 206 Group A Streptococcus Screen (VERONICA) - COMP THROAT 08/18 206 Streptococcus Culture - COMP THROAT 08/18 202 Blood Culture - RECD BLOOD 08/18 202 Blood Culture - RECD BLOOD Recent Impressions: RADIOLOGY - XR CHEST 2 V 08/18 0201 Report Impression - Status: SIGNED Entered: 08/18/2022 0317 IMPRESSION: Ill-defined somewhat nodular opacity measuring 3 .2 cm laterally in the right mid lung suspicious for rounded pneumo ro given provided history, but underlying neoplasm can not be excl uded. Followup radiographs are recommended after appropriate tr eatment in order to document complete resolution and exclude an unde rlying process or neoplasm. Impression By: [email or web address] - Dom Adams M.D. RADIOLOGY - XR FOOT 3 + V RT 08/18 0238 Report Impression - Status: SIGNED Entered: 08/18/2022 0358 IMPRESSION: No acute osseous findings. No convincing evidenc e for osteomyelitis. MRI is more sensitive for detecti ng osteomyelitis. Impression By: Ankur Ladd M.D. CAT SCAN - CT ABD PELVIS W/CONT 08/18 0339 Report Impression - Status: SIGNED Entered: 08/18/2022 0509 IMPRESSION: 3.3 cm hypodensity in the left posterior prostat e or seminal vesicle. This could represent an abscess. Contra st-enhanced MRI of the pelvis would be helpful for further evaluati on. No acute intra-abdominal findings otherwise. Impression By: Ankur Ladd M.D. CAT SCAN - CT LOWER EXTRM W/O C RT 08/18 0645 Report Impression - Status: SIGNED Entered: 08/18/2022826 IMPRESSION: Extensive soft tissue edema with mottled gas in the subcutaneous and intramuscular compartments of the foot abhishek tible with gas-forming infection. Disease extends into the visualized distal leg. Impression By: Jamel Dorantes M.D. Diagnosis, Assessment Plan Problem List/A P: 1. Right foot infection Plan discussed with: patient, collaborating MD Free Text DxA P Notes Free Text DxA P Notes: I have personally interviewe d and examined the pt. All charts, labs and imaging studies were reviewed. No discoloration of the leg. No tenderness of the lower leg. Discussed with Dr. Pedersen. I have recommen ded that the foot be treated first. Will see how the infe ction is after drainage/treatment. If the infection worsenes, may need amputation (BKA vs AKA). Will follow. at 1126 RPT #:[id number] END OF REPORT 2022-08-18 10:23:00-00:00 [facility] REPORT#:[id number] REPORT STATUS: Signed DATE:08/18/22 TIME: 1023 PATIENT: KARMA ROWLAND UNIT #: [id number] ROOM/BED: [place] [id number] : 63 AGE: 56 SEX: M ATTEND: Mikayla Ramires MD ADM AUTHOR: Liam Pedersen DPM * ALL edits or amendments must be made on the el [employer]/computer document * History of Present Illness Reason for consult: severe foot infection Chief complaint: my foot is red and swollen HPI: Thank you for the consultation I was asked to urgently come see patient who cam e in overnight last night. I came and saw him this morning in the intensive care unit History comes from patient from chart from alfonzo neal and from Dr. Ramires who I spoke with several times today. He is a 56 yo HAM with long h/o DM, and HTn who was admitted for above reasons. He was doing well until abou t 3 days ago when he noted blister to have formed on the dorsum of his foot. His foot stated progressively getting more swollen and the blisters started enlarging and exten ding to his lateral foot and ankle. He started feeling weak and nauseated. He w as noted to have altered mentation and was brought to our ER. He was noted to be in DKA with very high blood sugars. This is a very complicated situation. Patient is on an insulin drip. He is on IV antibiotics. I spent over 1 hour including examining him and reviewing the chart. He has had x-rays and CAT scan. CAT scan showed he had gas in the tissues. Patient does not understand really the severity. He does not know how long he has had areas of dr jaun around his ankle. He does not remember an ulcer being there. Does not really have much pain. He is quite numb. He denies any problems with his left foot. Only the right foot is evaluated up to the right ankle. History - Adult longitudinal Additional medical history: DM 2 since age 33 DM neuropathy HTN hyperlipidemia Additional surgical history: as above Additional family history: reviewed and non contributory Alcohol use: Denies EtOH use Drug use: Denies recreational drugs Smoking status for patients 13 years old or olde r: Never Smoker Other social history: Local resident, Good socia l support Allergies: Coded Allergies: No Known Allergies (03/23/11) Review of Systems Constitutional: chills, fatigue, fever, generalized weakness, le thargy, malaise. Skin: abrasion, bruising, ecchymosis. Allergy/Immun: Denies: allergic reaction. Respiratory: Denies: OVIEDO (dyspnea on exertion). Cardiovascular: edema. Musculoskeletal: arthritis, extremity pain. Neuro: numbness. Denies: seizure, slurred speech. Psych: Denies: agitation, auditory hallucination, confu keisha. All systems rev neg: except as marked Objective General VS: Last Documented: Result Date Time Pulse Ox 98 08/18 0430 B/P 107/58 08/18 0530 B/P Mean 75 08/18 529 Pulse 85 08/18 0430 Resp 16 08/18 529 O2 Delivery Room air 08/19 151 Temp 36.6 08/19 151 PATIENT WEIGHT: Weight (lb): Weight (oz): Weight (kg): 77.700 Medications: Active Meds + DC'd Last 24 Hrs Vancomycin HCl (VANCOMYCIN HCL) 1,000 MG Q24H IV Sodium Chloride (SODIUM CHLORIDE 0.9%) 250 ML Famotidine (PEPCID) 20 MG Q12HR IV Clindamycin Phosphate (CLEOCIN 900 MG/NS 50 ML) 50 ML Q8H IV (CAN) Acetaminophen (TYLENOL) 650 MG Q6H PRN PRN PO Bisacodyl (DULCOLAX) 10 MG DAILY PRN PRN RECTAL Docusate Sodium (COLACE) 100 MG Q12H PRN PRN PO Hydrocodone Bitart/Acetaminophen (NORCO 5/325) 1 TAB Q4H PRN PRN PO Morphine Sulfate (morphine SULFATE) 2 MG Q4H PRN PRN IV Ondansetron HCl (ZOFRAN) 4 MG Q6H PRN PRN IV Mupirocin (BACTROBAN 2% 22 GM OINTMENT) 1 APPLIC BID NASAL Vancomycin HCl (VANCOMYCIN HCL) 1,750 MG ONCE ON E IV (DC) Sodium Chloride (NS 0.9%) 500 ML Heparin Sodium (HEPARIN 5000 UNITS/ML) 5,000 UNI T Q8HR SUBQ Piperacillin Sod/Tazobactam Sod (ZOSYN 3.375GM) 3.375 GM Q8H IV Sodium Chloride (SODIUM CHLORIDE 0.9% 100 ML) 1 00 ML Dextrose/Water (DEXTROSE 10% IN WATER) 250 ML DIR PRN IV (CKD) Dextrose/Water (Dextrose 10% 1,000 mL) 1,000 ML ASDIR IV Insulin Human Regular (HumuLIN R) 100 UNIT ASDIR IV (CKD) Sodium Chloride (SODIUM CHLORIDE 0.9%) 99 ML Magnesium Sulfate (MAGNESIUM SULFATE 2GM/SWFI 50 ML) 50 ML ASDIR PRN IV Magnesium Sulfate (MAGNESIUM SULFATE 4GM/SWFI 10 0ML) 100 ML ASDIR PRN IV Miscellaneous Information (VANCOMYCIN PHARMACY T O DOSE) 1 EACH ASDIR IV (CKD) Potassium Chloride (POTASSIUM CHLORIDE 20MEQ TAB .ER) 20 MEQ ASDIR PRN PO Potassium Chloride (POTASSIUM CHLORIDE 20MEQ TAB .ER) 40 MEQ ASDIR PRN PO Potassium Chloride (POTASSIUM CHLORIDE 20MEQ TAB .ER) 60 MEQ ASDIR PRN PO (CKD) Potassium Chloride (KCL 20MEQ/SWFI 100ML) 100 ML ASDIR PRN IV Potassium Phosphate (POTASSIUM PHOSPHATE) 15 MM ASDIR PRN IV Sodium Chloride (SODIUM CHLORIDE 0.9%) 250 ML Sodium Chloride (SODIUM CHLORIDE 0.9%) 1,000 ML .Q5H IV Sodium Chloride (SODIUM CHLORIDE 0.9%) 1,000 ML .Q10H IV (DC) Insulin Human Regular (HumuLIN R) 100 UNIT X1ED STA IV (DC) Sodium Chloride (SODIUM CHLORIDE 0.9%) 99 ML Iopamidol (ISOVUE-300 100ML) 100 ML .STK-MED ONE IV (DC) Sodium Chloride (SODIUM CHLORIDE 0.9%) 1,310 ML ONCE ONE IV (DC) Ondansetron HCl (ZOFRAN) 4 MG X1ED PRN PRN IV (D C) Ketorolac Tromethamine (TORADOL) 15 MG X1ED STA IV (DC) Sodium Chloride (SODIUM CHLORIDE 0.9%) 1,000 ML X1ED STA IV (DC) I O: 24 hour I O ending at 0700: 08/18 0700 08/17 1900 Intake Total Output Total Balance Patient 77.7 kg Weight Weight Stated/Reported Measurement Method Dietitian nutrition assessment The data set between the solid lines has been im ported from the dietitian's assessment. BMI Calculated: 27.6 Nutrition related diagnosis: Nutrition diagnosis details: Nutrition problem: Nutrition etiology: Nutrition signs and symptoms: Nutrition prescription: Dietitian name: Assessment completed: Physical Exam General appearance: alert, a wake, oriented, conversational, mental status normal Wound/incision: Location: Right foot to right ankle. DP and PT pulses are very weak essentially nonpa lpable. There is severe edema of the right foot to the r ight ankle. There is erythema of the right foot to the right ankle. Not really any ascending lymphangitis past there . Crepitation is at the medial right hindfoot and the dorsal right midfoot. There is also crepitation at the lateral right a nkle. There is some bullae that are peeling medial and lateral. Sensation is greatly decreased on the right foot . LE vascular pulse assess: Nonpalpable R posterior tibialis, Nonpalpable R dorsalis pedis Feet Top - Top View (L) [Embedded Image Not Available] 1) Feet - Left Right View (L) [Embedded Image Not Available] 1) 2) Results Findings/Data: Laboratory Tests: 08/18 08/18 08/18 08/18 1004 0900 0823 0549 Chemistry POC Glucose (70 - 110 MG/DL) 304 H 405 H 449 H Hemoglobin A1c (4.8 - 6.0 %A1C) 13.4 H 08/18 08/18 08/18 0549 0305 0207 Blood Gas Puncture Site R Radial O2 Saturation (90 - 100 %) 97.9 ABG pH (7.35 - 7.45) 7.309 L ABG pCO2 (35.0 - 45 mmHg) 22.3 *L ABG pO2 (80 - 100.0 mmHg) 108.0 H ABG PO2/FiO2 Ratio (mm/Hg) 514.28 ABG HCO3 (22.0 - 26.0 MMOL/L) 11.2 *L ABG Total CO2 11.9 ABG Base Excess (-4.0 - 4.0 MMOL/L) -15.1 L Neto Test Positive O2 Delivery Device Room Air FiO2 (%) 21 Chemistry Sodium (134 - 147 mEq/L) 121 *L Potassium (3.4 - 5.0 mEq/L) 4.1 Chloride (100 - 108 mEq/L) 90 L Carbon Dioxide (21 - 33 mEq/l) 15 L Anion Gap (0 - 20) 20 BUN (7 - 18 mg/dL) 62 H Creatinine (0.6 - 1.3 mg/dL) 1.7 H Glomerular Filtr Rate (90 - 95) 46.2 L Glucose (70 - 110 mg/dL) 692 *H Calcium (8.0 - 10.5 mg/dL) 7.5 L Phosphorus (2.5 - 4.9 MG/DL) 4.8 Magnesium (1.80 - 2.40 mg/dL) 2.34 Albumin (3.4 - 5.0 g/dL) 1.60 L Serology Influenza Type A (PCR) (Negative) Negative Influenza Type B (PCR) (Negative) Negative Toxicology Acetone, Quant (Neg - <20 mg/dL) Large - 80-100 mg/dL 08/18 08/18 08/18 0205 0203 0203 Chemistry Sodium (134 - 147 mEq/L) 115 *L Potassium (3.4 - 5.0 mEq/L) 4.4 Chloride (100 - 108 mEq/L) 84 L Carbon Dioxide (21 - 33 mEq/l) 14 L Anion Gap (0 - 20) 21 H BUN (7 - 18 mg/dL) 60 H Creatinine (0.6 - 1.3 mg/dL) 1.9 H Glomerular Filtr Rate (90 - 95) 40.4 L Glucose (70 - 110 mg/dL) 709 *H Lactic Acid (0.4 - 1.9 mmol/L) 1.2 Calcium (8.0 - 10.5 mg/dL) 8.5 Total Bilirubin (0.0 - 1.0 mg/dL) 0.40 Direct Bilirubin (0.0 - 0.30 MG/DL) 0.20 Indirect Bilirubin (MG/DL) 0.20 AST (15 - 37 IUnit/L) 14 L ALT (30 - 65 IUnit/L) 10 L Total Alk Phosphatase (20 - 125 IUnit/L) 157 H Troponin I High Sens (0 - 54 ng/L) 4 Total Protein (6.4 - 8.2 g/dL) 6.4 Albumin (3.4 - 5.0 g/dL) 1.80 L Lipase (13 - 57 U/L) 24 Hematology WBC (4.5 - 11.0 x10 3/uL) 26.5 H RBC (4.00 - 5.60 x10 6/uL) 3.36 L Hgb (12.5 - 16.9 g/dL) 9.0 L Hct (37.5 - 50.7 %) 28.3 L MCV (81.0 - 99.0 fL) 84.2 MCH (27.0 - 33.0 pg) 26.8 L MCHC (33.0 - 37.0 g/dL) 31.8 L RDW (11.5 - 14.5 %) 14.5 Plt Count (150 - 400 x10 3/uL) 355 MPV (7.0 - 9.0 fL) 9.9 H Add Manual Diff YES Seg Neutrophils % (37 - 69 %) 70.0 H Band Neutrophils % (0.0 - 10.0 %) 12.7 H Lymphocytes % (Manual) (23 - 55 %) 3.7 L Monocytes % (Manual) (0 - 10 %) 9.1 Metamyelocytes (0.0 - 0.0 %) 2.7 H Myelocytes (0.0 - 0.0 %) 0.9 H Promyelocytes (0 - 0 %) 0.9 H Platelet Estimate (ADEQUATE THOUSAND) Adequate Plt Morphology Comment NORMAL Polychromasia 3+ Poikilocytosis 3+ Anisocytosis 1+ Macrocytosis 1+ Serology SARS-CoV-2 Ag (Rapid) (Negative) Negative Toxicology Salicylates (0.0 - 20.0 mg/dL) 5.6 Recent Impressions: RADIOLOGY - XR CHEST 2 V 08/18 0201 Report Impression - Status: SIGNED Entered: 08/18/2022 0317 IMPRESSION: Ill-defined somewhat nodular opacity measuring 3 .2 cm laterally in the right mid lung suspicious for rounded pneumo ro given provided history, but underlying neoplasm can not be excl uded. Followup radiographs are recommended after appropriate tr eatment in order to document complete resolution and exclude an unde rlying process or neoplasm. Impression By: [email or web address] - Dom Adams M.D. RADIOLOGY - XR FOOT 3 + V RT 08/18 0238 Report Impression - Status: SIGNED Entered: 08/18/2022 0358 IMPRESSION: No acute osseous findings. No convincing evidenc e for osteomyelitis. MRI is more sensitive for detecti ng osteomyelitis. Impression By: [email or web address] - Jay Ladd M.D. CAT SCAN - CT ABD PELVIS W/CONT 08/18 0339 Report Impression - Status: SIGNED Entered: 08/18/2022 0560 IMPRESSION: 3.3 cm hypodensity in the left posterior prostat e or seminal vesicle. This could represent an abscess. Contra st-enhanced MRI of the pelvis would be helpful for further evaluati on. No acute intra-abdominal findings otherwise. Impression By: Ankur - Jay Ladd M.D. CAT SCAN - CT LOWER EXTRM W/O C RT 08/18 0645 Report Impression - Status: SIGNED Entered: 08/18/2022826 IMPRESSION: Extensive soft tissue edema with mottled gas in the subcutaneous and intramuscular compartments of the foot abhishek tible with gas-forming infection. Disease extends into the visualized distal leg. Impression By: Jamel Dorantes M.D. 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 Keep patient n.p.o. Given the consultation Electronically Signed by Liam Pedersen DPM on 0 08/18/22 at 1030 RPT #:[id number] END OF REPORT 2022-08-18 09:23:00-00:00 [facility] REPORT#:[id number] REPORT STATUS: Signed DATE:08/18/22 TIME: 922 PATIENT: KARMA ROWLAND UNIT #: [id number] ROOM/BED: [facility] : 63 AGE: 56 SEX: M ATTEND: Mikayla Ramires MD ADM AUTHOR: Wilbert Ramires MD * ALL edits or amendments must be made on the el [employer]/computer document * History of Present Illness HPI Chief complaint: AMS and right foot infection PCP: PCP: No Primary or Family Physician HPI: 56 yo HAM with long h/o DM, and HTn who was admitted for above reasons. He was doing well until about 3 days ago when he noted blister to have formed on the dorsum of his foot. His foot stated prog ressively getting more swollen and the blisters started enlarging and extending to his lateral foot and ankle. He started feeling weak and nauseated. He w as noted to have altered mentation and was brought to our ER. He wa s noted to be in DKA with Blood sugars in the 700's. History Past Medical Surgical Hx Additional medical history: DM 2 since age 33 DM neuropathy HTN hyperlipidemia Additional surgical history: as above Family History Additional family history: reviewed and non contributory Social History Alcohol use: Denies EtOH use Drug use: Denies recreational drugs Smoking status for patients 13 years old or olde r: Never Smoker Other social history: Local resident, [place] support Medication/Allergy-Vaccine Hx Medications: please see JUL's Allergies: Coded Allergies: No Known Allergies (03/23/11) Review of Systems All systems rev neg: except as noted OBJECTIVE VS/I O: Vital Signs Date Temp Pulse Resp B/P B/P Mean Pulse Ox FiO2 08/18 97.8 85-97 16-28 90-112/51-59 65-80 97-10 0 Last Documented: Result Date Time Pulse Ox 98 08/18 0530 B/P 107/58 08/18 0530 B/P Mean 75 08/18 0530 Pulse 85 08/18 0530 Resp 16 08/18 0530 O2 Delivery Room air 08/18 0152 Temp 97.8 08/18 0152 24 hour I O ending at 0700: 08/18 0700 08/17 1900 Intake Total Output Total Balance Patient 77.7 kg Weight Weight Stated/Reported Measurement Method Patient Weight and BMI Weight (kg): 77.700 BMI: 27.6 Medications: Active Meds + DC'd Last 24 Hrs Vancomycin HCl (VANCOMYCIN HCL) 1,000 MG Q24H IV Sodium Chloride (SODIUM CHLORIDE 0.9%) 250 ML Clindamycin Phosphate (CLEOCIN 900 MG/NS 50 ML) 50 ML Q8H IV (CAN) Mupirocin (BACTROBAN 2% 22 GM OINTMENT) 1 APPLIC BID NASAL Vancomycin HCl (VANCOMYCIN HCL) 1,750 MG ONCE ON E IV Sodium Chloride (NS 0.9%) 500 ML Heparin Sodium (HEPARIN 5000 UNITS/ML) 5,000 UNI T Q8HR SUBQ Piperacillin Sod/Tazobactam Sod (ZOSYN 3.375GM) 3.375 GM Q8H IV Sodium Chloride (SODIUM CHLORIDE 0.9% 100 ML) 1 00 ML Dextrose/Water (DEXTROSE 10% IN WATER) 250 ML DIR PRN IV (CKD) Dextrose/Water (Dextrose 10% 1,000 mL) 1,000 ML ASDIR IV Insulin Human Regular (HumuLIN R) 100 UNIT ASDI R IV (CKD) Sodium Chloride (SODIUM CHLORIDE 0.9%) 99 ML Magnesium Sulfate (MAGNESIUM SULFATE 2GM/SWFI 50 ML) 50 ML ASDIR PRN IV Magnesium Sulfate (MAGNESIUM SULFATE 4GM/SWFI 10 0ML) 100 ML ASDIR PRN IV Miscellaneous Information (VANCOMYCIN PHARMACY T O DOSE) 1 EACH ASDIR IV (CKD) Potassium Chloride (POTASSIUM CHLORIDE 20MEQ TAB .ER) 20 MEQ ASDIR PRN PO Potassium Chloride (POTASSIUM CHLORIDE 20MEQ TAB .ER) 40 MEQ ASDIR PRN PO Potassium Chloride (POTASSIUM CHLORIDE 20MEQ TAB .ER) 60 MEQ ASDIR PRN PO (CKD) Potassium Chloride (KCL 20MEQ/SWFI 100ML) 100 ML ASDIR PRN IV Potassium Phosphate (POTASSIUM PHOSPHATE) 15 MM ASDIR PRN IV Sodium Chloride (SODIUM CHLORIDE 0.9%) 250 ML Sodium Chloride (SODIUM CHLORIDE 0.9%) 1,000 ML .Q5H IV Sodium Chloride (SODIUM CHLORIDE 0.9%) 1,000 ML .Q10H IV (DC) Insulin Human Regular (HumuLIN R) 100 UNIT X1ED STA IV (DC) Sodium Chloride (SODIUM CHLORIDE 0.9%) 99 ML Iopamidol (ISOVUE-300 100ML) 100 ML .STK-MED ONE IV (DC) Sodium Chloride (SODIUM CHLORIDE 0.9%) 1,310 ML ONCE ONE IV (DC) Ondansetron HCl (ZOFRAN) 4 MG X1ED PRN PRN IV (D C) Ketorolac Tromethamine (TORADOL) 15 MG X1ED STA IV (DC) Sodium Chloride (SODIUM CHLORIDE 0.9%) 1,000 ML X1ED STA IV (DC) General appearance: alert, awake, oriented Head/Eyes: normocephalic ENT: moist mucosal membranes Neck: no JVD Cardiovascular: regular rate rhythm, no heave Respiratory: aerating well, clear to auscultatio n, symmetric expansion, no distress Abdomen: non-tender, normal bowel sounds, soft, no distention Genitourinary: no bladder distention Extremities: right foot markedly swollen with violacous disoloratoin of dorsum and lateral area extending t o ankle. There were blisters with some blisters were open. 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 X 3, 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 Skin: no rash Psychiatry: normal affect, normal judgment/insig ht, normal mood Results Findings/Data: Laboratory Tests: 08/18 08/18 08/18 08/18 0900 0823 0549 0549 Chemistry Sodium (134 - 147 mEq/L) 121 *L Potassium (3.4 - 5.0 mEq/L) 4.1 Chloride (100 - 108 mEq/L) 90 L Carbon Dioxide (21 - 33 mEq/l) 15 L Anion Gap (0 - 20) 20 BUN (7 - 18 mg/dL) 62 H Creatinine (0.6 - 1.3 mg/dL) 1.7 H Glomerular Filtr Rate (90 - 95) 46.2 L Glucose (70 - 110 mg/dL) 692 *H POC Glucose (70 - 110 MG/DL) 405 H 449 H Hemoglobin A1c (4.8 - 6.0 %A1C) 13.4 H Calcium (8.0 - 10.5 mg/dL) 7.5 L Phosphorus (2.5 - 4.9 MG/DL) 4.8 Magnesium (1.80 - 2.40 mg/dL) 2.34 Albumin (3.4 - 5.0 g/dL) 1.60 L Toxicology Acetone, Quant (Neg - <20 mg/dL) Large - 80-100 mg/dL 08/18 08/18 08/18 08/18 0305 0207 0205 0203 Blood Gas Puncture Site R Radial O2 Saturation (90 - 100 %) 97.9 ABG pH (7.35 - 7.45) 7.309 L ABG pCO2 (35.0 - 45 mmHg) 22.3 *L ABG pO2 (80 - 100.0 mmHg) 108.0 H ABG PO2/FiO2 Ratio (mm/Hg) 514.28 ABG HCO3 (22.0 - 26.0 MMOL/L) 11.2 *L ABG Total CO2 11.9 ABG Base Excess (-4.0 - 4.0 MMOL/L) -15.1 L Neto Test Positive O2 Delivery Device Room Air FiO2 (%) 21 Chemistry Lactic Acid (0.4 - 1.9 mmol/L) 1.2 Hematology WBC (4.5 - 11.0 x10 3/uL) 26.5 H RBC (4.00 - 5.60 x10 6/uL) 3.36 L Hgb (12.5 - 16.9 g/dL) 9.0 L Hct (37.5 - 50.7 %) 28.3 L MCV (81.0 - 99.0 fL) 84.2 MCH (27.0 - 33.0 pg) 26.8 L MCHC (33.0 - 37.0 g/dL) 31.8 L RDW (11.5 - 14.5 %) 14.5 Plt Count (150 - 400 x10 3/uL) 355 MPV (7.0 - 9.0 fL) 9.9 H Add Manual Diff YES Seg Neutrophils % (37 - 69 %) 70.0 H Band Neutrophils % (0.0 - 10.0 %) 12.7 H Lymphocytes % (Manual) (23 - 55 %) 3.7 L Monocytes % (Manual) (0 - 10 %) 9.1 Metamyelocytes (0.0 - 0.0 %) 2.7 H Myelocytes (0.0 - 0.0 %) 0.9 H Promyelocytes (0 - 0 %) 0.9 H Platelet Estimate (ADEQUATE THOUSAND) Adequate Plt Morphology Comment NORMAL Polychromasia 3+ Poikilocytosis 3+ Anisocytosis 1+ Macrocytosis 1+ Serology Influenza Type A (PCR) (Negative) Negative Influenza Type B (PCR) (Negative) Negative SARS-CoV-2 Ag (Rapid) (Negative) Negative 08/18 202 Chemistry Sodium (134 - 147 mEq/L) 115 *L Potassium (3.4 - 5.0 mEq/L) 4.4 Chloride (100 - 108 mEq/L) 84 L Carbon Dioxide (21 - 33 mEq/l) 14 L Anion Gap (0 - 20) 21 H BUN (7 - 18 mg/dL) 60 H Creatinine (0.6 - 1.3 mg/dL) 1.9 H Glomerular Filtr Rate (90 - 95) 40.4 L Glucose (70 - 110 mg/dL) 709 *H Calcium (8.0 - 10.5 mg/dL) 8.5 Total Bilirubin (0.0 - 1.0 mg/dL) 0.40 Direct Bilirubin (0.0 - 0.30 MG/DL) 0.20 Indirect Bilirubin (MG/DL) 0.20 AST (15 - 37 IUnit/L) 14 L ALT (30 - 65 IUnit/L) 10 L Total Alk Phosphatase (20 - 125 IUnit/L) 157 H Troponin I High Sens (0 - 54 ng/L) 4 Total Protein (6.4 - 8.2 g/dL) 6.4 Albumin (3.4 - 5.0 g/dL) 1.80 L Lipase (13 - 57 U/L) 24 Toxicology Salicylates (0.0 - 20.0 mg/dL) 5.6 Laboratory Tests 08/18/22 0549: [Embedded Image Not Available] 08/18/22 0205: [Embedded Image Not Available] 08/18/22 0203: [Embedded Image Not Available] Diagnosis, Assessment Plan Free Text A P: DKA DM 2, poorly controlled severe gas gangrene, right foot ERIKA severe hyponatremia likely due to combination of severe hyperglycemia and dehydration from DKA sepsis due to foot infection DM neuropathy HTN anemia, acute due to blood loss Plans: - admit to ICU - continue IV fluids aggressively - monitor lytes and AG - IV insulin drip for now until gap closes - endo eval - keep on Vancomycin and Zosyn - podiatry eval - d.w Wojciech Hernandez - likely will need debridement - MRI of foot ordered - endo eval for management of DM. - HgbA1c of 13.4 - Urology consulted for hypodensity in prostate - ? abscess, not likely. not much symptoms - lovenox for VTE - check iron panel, TSH - fall precautions - not much pain needs likely due to neuropathy Plan discussed with: patient, consultants, nurse Time spent: Time spent on patient care (minutes): 60 Electronically Signed by Wilbert Ramires MD on at 0932 RPT #:[id number] END OF REPORT 2022-08-18 06:03:00-00:00 [facility]L [facility] ([facility]) Pharmacy Prog.Note-Vancomycin REPORT#:[id number] REPORT STATUS: Signed DATE:08/18/22 TIME: 06 PATIENT: KARMA ROWLAND UNIT #: [id number] ROOM/BED: [place] [address] : 63 AGE: 56 SEX: M ATTEND: Mikayla Ramires MD ADM AUTHOR: Beti Willoughby [facility] * ALL edits or amendments must be made on the el [employer]/computer document * Vancomycin Vancomycin Medication Therapy Goal: trough 12-18 mcg/mL Indication for treatment: Empiric Day of therapy: Day 1 Weight: Actual weight (kg): 77.7 (STATED/REPORTED) VS and I/O: Vital Signs Date Temp Pulse Resp B/P B/P Mean Pulse Ox FiO2 08/18 97.8 85-97 16-28 90-112/51-59 65-80 97-10 0 72 hours ending at 0700 08/18 0700 08/17 1900 08/17 0700 08/16 1900 08/15 0700 1900 Intake Total Output Total Balance Patient 77.7 kg Weight Weight Stated/Rep orted Measuremen t Method 72 Hour I O Total 08/18 0700 08/17 0700 08/16 0700 Intake Total Output Total Balance Labs: Laboratory Test : 08/18 08/18 0205 0203 Chemistry BUN (7 - 18 mg/dL) 60 H Creatinine (0.6 - 1.3 mg/dL) 1.9 H Hematology WBC (4.5 - 11.0 x10 3/uL) 26.5 H Microbiology: 08/18 206 FOOT: Wound Culture - RECD 08/18 206 THROAT: Group A Streptococcus Screen (VERONICA) - COMP 08/18 206 THROAT: Streptococcus Culture - COMP 08/18 202 BLOOD: Blood Culture - RECD 08/18 202 BLOOD: Blood Culture - RECD Pertinent tests: Recent Impressions: RADIOLOGY - XR CHEST 2 V 08/18 020 Report Impression - Status: SIGNED Entered: 08/18/2022316 IMPRESSION: Ill-defined somewhat nodular opacity measuring 3 .2 cm laterally in the right mid lung suspicious for rounded pneumo ro given provided history, but underlying neoplasm can not be excl uded. Followup radiographs are recommended after appropriate tr eatment in order to document complete resolution and exclude an unde rlying process or neoplasm. Impression By: [email or web address] - Dom Adams M.D. RADIOLOGY - XR FOOT 3 + V RT 08/18 0238 Report Impression - Status: SIGNED Entered: 08/18/2022 0358 IMPRESSION: No acute osseous findings. No convincing evidenc e for osteomyelitis. MRI is more sensitive for detecti ng osteomyelitis. Impression By: Ankur Ladd M.D. CAT SCAN - CT ABD PELVIS W/CONT 08/18 0339 Report Impression - Status: SIGNED Entered: 08/18/2022 0546 IMPRESSION: 3.3 cm hypodensity in the left posterior prostat e or seminal vesicle. This could represent an abscess. Contra st-enhanced MRI of the pelvis would be helpful for further evaluati on. No acute intra-abdominal findings otherwise. Impression By: Ankur Ladd M.D. Drug admin history: Medication(s) Ordered: Anti-Infective Agents Sig/Jan Start time Last Medication Dose Route Stop Time Status Admin Vancomycin HCl 1,750 MG ONCE ONE 08/18 0800 AC Sodium Chloride 500 ML IV 08/18 0944 Piperacillin Sod/ 3.375 GM Q8H 08/18 0600 AC Tazobactam Sod IV 08/25 0559 0616 Sodium Chloride 100 ML Miscellaneous 1 EACH ASDIR 08/18 0545 CKD Information IV 09/17 0544 Treatment plan: consult, initiation of therapy Rationale: 56 year old male with unknown PMH, presented to ER with fever and AMS. He was found to have labs consistent with DKA. Nursing noted blister, redness, and purple discoloration on right foot. Pharmacy con sulted to manage vancomycin. Consulting Provider: Andrew London MD Indication: Empiric Goal trough: 12-18 mcg/mL Other abx: zosyn 3.375gm IV q8h 08/18 A/P Labs and Vitals * afebrile with temp 97.8F * WBC 26.5 (elevated) * lactic acid 1.2 (WNL) Renal Function * BUN/SCr 62/1.7, eCrCl 46 mL/min (AdjBW) * no documented urine output at this time Microbiology * 08/18 Blood cultures: pending * 08/18 strep A culture: negative * 08/18 foot wound culture: pending Imaging * 08/18 chest x-ray: Ill-defined somewhat nodula r opacity measuring 3.2 cm laterally in the right mid l leonel suspicious for rounded pneumonia given provided history, but underlying neoplasm can not be excl uded. * 08/18 foot x-ray: No acute osseous findings. N o convincing evidence for osteomyelitis. * abd/pelvis CT: 3.3 cm hypodensity in the left posterior prostate or seminal vesicle. This could represent an abscess . Plan * loading dose of vancomycin 1750 mg ( 23 mg/kg) IV once * maintenance dose of vancomycin 1000 ( 13 mg/kg ) IV q24h * if renal function stable, plan for steady stat e trough before the 4th dose * f/u cultures * pharmacy will continue to follow and adjust as appropriate Thank you, Andrew London MD, for this consult. at 0704 RPT #:[id number] END OF REPORT 2022-08-18 05:37:00-00:00 HCACL [facility]) Critical Care Consult Note REPORT#:[id number] REPORT STATUS: Signed DATE:08/18/22 TIME: 05 PATIENT: KARMA ROWLAND UNIT #: [id number] ROOM/BED: [place] [address] : 63 AGE: 56 SEX: M ATTEND: Mikayla Ramires MD ADM AUTHOR: Andrew London MD * ALL edits or amendments must be made on the el [employer]/computer document * History - Adult longitudinal Allergies: Coded Allergies: No Known Allergies (03/23/11) Diagnosis, Assessment Plan Free text DxA P: 56 year old male unknown PMH who presented 08/18 with fever, AMS. He was found to have labs consisent with DKA with AGAP 21 and glucose 700+. 24 HR events: Physical exam: Awake, alert, lungs are melia r to auscultation, heart is regular rate and rhythm, abdomen is soft, extremities no edema Neuro: no issues CV: no issues Pulm: no issues GI: no issues Renal: *elevated cr - likely secondary to dka, cont IVF , trend cr Heme: *anemia - trend HH, will need outpatient eval fo r etiology ID: *leukocytosis - start empiric abx, check culture s Endo: *DKA - start protocol, check a1c, acetone MSK Nutr: NPO GI px: DVT px: hep sq Bowel regimen: Dispo: ICU I have seen and examined the patient and spent 3 9 minutes evaluating and managing the patient exclusive of time spent on procedures. Electronically Signed by Andrew London MD on 08/23 at 0703 RPT #:[id number] END OF REPORT 2022-08-18 05:14:00-00:[address] [facility] ([facility]) EMERGENCY PROVIDER REPORT REPORT#:[id number] REPORT STATUS: Signed DATE:08/18/22 TIME: 513 PATIENT: KARMA ROWLAND UNIT #: [id number] ROOM/BED: [place] [address] AGE: 56 SEX: M PCP PHYS: No Primary or Family Ph ysician SERVICE AUTHOR: Teodoro Perez MD * ALL edits or amendments must be made on the [employer]/computer document * HPI-General Illness Free Text HPI Notes Free Text HPI Notes 56 yo male with history of n on-insulin dependent diabetes comes to the emergency department with increasing confusion. Patient pr esents with family. He has generally declined over the last 3-4 day s, though he says that he has felt bad for about 2 weeks. Now having fevers, dizziness and some discomfort in the chest. He has not been compliant with mt dications for his diabetes. Also notes an open blister wound on the right foot. General Initial Greet Date/Time 08/18/22 0247 Presentation Chief Complaint Altered mental status Review of Systems ROS Statements All systems rev neg except as marked. Review of Systems Constitutional Reports: Chills, Weakness - generalized. Cardiovascular Reports: Chest pain. Skin Reports: Rash. Neurologic Reports: Dizziness. Past Medical History - Adult Stated Complaint DIZZY, ABD PAIN, CHEST PAIN, FE AMBIKA Allergies Coded Allergies: No Known Allergies (03/23/11) Review of Nursing Notes Rev avail, and agree Smoking status for patients 13 years old or olde r: Never Smoker Physical Exam Vital Signs Vital Signs First Documented: Result Date Time Pulse Ox 100 08/18 015 B/P 112/55 08/18 015 B/P Mean 74 08/19 151 O2 Delivery Room air 08/19 151 Temp 36.6 08/19 151 Pulse 97 08/18 015 Resp 18 08/19 151 Last Documented: Result Date Time Pulse Ox 99 08/18 0500 B/P 99/59 08/18 0500 B/P Mean 73 08/18 0500 Pulse 86 08/18 0500 Resp 21 08/18 0500 O2 Delivery Room air 08/19 151 Temp 36.6 08/19 151 Review of Vital Signs Reviewed, Vital signs norm al Physical Exam General/Const General/Const Awake, Alert, No acute distress, Well appearing, Cooperative, Not toxic appearing MS Head Head Atraumatic, Normocephalic Eyes Eyes No scleral icterus, Conjunctiva NL Ears/Nose/Throat Ears/Nose/Throat Airway patent, Pharynx NL Mouth Mucous membranes dry. MS Neck Neck Supple, No meningismus, No swelling Resp/Chest Respiratory/Chest Breath sounds NL, Breath soun ds = bilat, No respiratory distress, No rhonchi, No wheezing Text/Dict Notes Tachypnic Cardiovascular Cardiovascular Regular rhythm, Heart sounds NL, No murmurs, Peripheral circulation NL Heart Rate/Rhythm Tachycardia. Abdomen/GI Abdomen/GI Soft, Non-tender, No guarding, No re bound, No distention MS Lower Extrem Text/Dict Notes No lower extremity swelling. Open blister on the lateral aspect of the right foot. No streaking redness up the leg Skin Skin Warm, Dry, No swelling Text/Dict Notes Open blister wound on the right foot Neurologic Neurologic Oriented X3, Speech NL, No motor def icits, No sensory deficits Interpretation Diagnostics Lab Results Interpretation Results Laboratory Tests 08/18/22 0205: [Embedded Image Not Available] 08/18/22 0203: [Embedded Image Not Available] Laboratory Tests: 08/18 08/18 08/18 08/18 08/18 0430 0305 0207 0205 0203 Blood Gas Puncture Site R Radial O2 Saturation (90 - 100 %) 97.9 ABG pH (7.35 - 7.45) 7.309 L ABG pCO2 (35.0 - 45 mmHg) 22.3 *L ABG pO2 (80 - 100.0 mmHg) 108.0 H ABG PO2/FiO2 Ratio (mm/Hg) 514.28 ABG HCO3 (22.0 - 26.0 MMOL/L) 11.2 *L ABG Total CO2 11.9 ABG Base Excess (-4.0 - 4.0 -15.1 L MMOL/L) Neto Test Positive O2 Delivery Device Room Air FiO2 (%) 21 Chemistry POC Glucose (70 - 110 MG/DL) 597 H Lactic Acid (0.4 - 1.9 mmol/L) 1.2 Hematology WBC (4.5 - 11.0 x10 3/uL) 26.5 H RBC (4.00 - 5.60 x10 6/uL) 3.36 L Hgb (12.5 - 16.9 g/dL) 9.0 L Hct (37.5 - 50.7 %) 28.3 L MCV (81.0 - 99.0 fL) 84.2 MCH (27.0 - 33.0 pg) 26.8 L MCHC (33.0 - 37.0 g/dL) 31.8 L RDW (11.5 - 14.5 %) 14.5 Plt Count (150 - 400 x10 3/uL) 355 MPV (7.0 - 9.0 fL) 9.9 H Add Manual Diff YES Seg Neutrophils % (37 - 69 %) 70.0 H Band Neutrophils % (0.0 - 10.0 %) 12.7 H Lymphocytes % (Manual) (23 - 55 %) 3.7 L Monocytes % (Manual) (0 - 10 %) 9.1 Metamyelocytes (0.0 - 0.0 %) 2.7 H Myelocytes (0.0 - 0.0 %) 0.9 H Promyelocytes (0 - 0 %) 0.9 H Platelet Estimate (ADEQUATE Adequate THOUSAND) Plt Morphology Comment NORMAL Polychromasia 3+ Poikilocytosis 3+ Anisocytosis 1+ Macrocytosis 1+ Serology Influenza Type A (PCR) (Negative) Negative Influenza Type B (PCR) (Negative) Negative SARS-CoV-2 Ag (Rapid) (Negative) Negative 08/18 020 Chemistry Sodium (134 - 147 mEq/L) 115 *L Potassium (3.4 - 5.0 mEq/L) 4.4 Chloride (100 - 108 mEq/L) 84 L Carbon Dioxide (21 - 33 mEq/l) 14 L Anion Gap (0 - 20) 21 H BUN (7 - 18 mg/dL) 60 H Creatinine (0.6 - 1.3 mg/dL) 1.9 H Glomerular Filtr Rate (90 - 95) 40.4 L Glucose (70 - 110 mg/dL) 709 *H Calcium (8.0 - 10.5 mg/dL) 8.5 Total Bilirubin (0.0 - 1.0 mg/dL) 0.40 Direct Bilirubin (0.0 - 0.30 MG/DL) 0.20 Indirect Bilirubin (MG/DL) 0.20 AST (15 - 37 IUnit/L) 14 L ALT (30 - 65 IUnit/L) 10 L Total Alk Phosphatase (20 - 125 IUnit/L) 157 H Troponin I High Sens (0 - 54 ng/L) 4 Total Protein (6.4 - 8.2 g/dL) 6.4 Albumin (3.4 - 5.0 g/dL) 1.80 L Lipase (13 - 57 U/L) 24 Toxicology Salicylates (0.0 - 20.0 mg/dL) 5.6 Microbiology: Date/Time Procedure - Status Source Growth 08/18 206 Wound Culture - COMP FOOT STAPH AUREUS,METHICILLIN RESIS 08/18 206 Group A Streptococcus Screen (VERONICA) - COMP THROAT 08/18 206 Streptococcus Culture - COMP THROAT 08/18 202 Blood Culture - COMP BLOOD STAPH AUREUS,METHICILLIN RESIS 08/18 202 Blood Culture Gram Stain - COMP BLOOD 08/18 202 Blood Culture - COMP BLOOD STAPH AUREUS,METHICILLIN RESIS 08/18 202 Blood Culture Gram Stain - COMP BLOOD Recent Impressions: RADIOLOGY - XR CHEST 2 V 08/18 020 Report Impression - Status: SIGNED Entered: 08/18/2022 0317 IMPRESSION: Ill-defined somewhat nodular opacity measuring 3 .2 cm laterally in the right mid lung suspicious for rounded pneumo ro given provided history, but underlying neoplasm can not be excl uded. Followup radiographs are recommended after appropriate tr eatment in order to document complete resolution and exclude an unde rlying process or neoplasm. Impression By: [email or web address] - Dom Adams M.D. RADIOLOGY - XR FOOT 3 + V RT 08/18 0238 Report Impression - Status: SIGNED Entered: 08/18/2022 0358 IMPRESSION: No acute osseous findings. No convincing evidenc e for osteomyelitis. MRI is more sensitive for detecti ng osteomyelitis. Impression By: Ankur Ladd M.D. CAT SCAN - CT ABD PELVIS W/CONT 08/18 0339 Report Impression - Status: SIGNED Entered: 08/18/2022 0546 IMPRESSION: 3.3 cm hypodensity in the left posterior prostat e or seminal vesicle. This could represent an abscess. Contra st-enhanced MRI of the pelvis would be helpful for further evaluati on. No acute intra-abdominal findings otherwise. Impression By: Ankur Ladd M.D. Lab Imaging Statement Laboratory radiographic studies reviewed and con sidered in the medical decision-making. ECG #1 Interpretation Text/Dict Note Normal sinus rhythm with a rate of 97 bpm. Felisa l axis and normal intervals. No ST segment elevations or depressions. Has pako vated T waves in the lateral leads and T wave inversion noted in lead III. ECG Documented in MUSE Yes Date 08/18/22 Time 0143 Interpreted by and reviewed by me, Independently interpreted, ED physician Re-Evaluation MDM Free Text MDM Notes Free Text MDM Notes 56 yo male with history of DM, comes to the emergency department with family - confused with tachycardia and fever. Concerned p atient may have DKA based on presentation and history of medication non-compl iance. Will give fluids, and antibiotics for wound. Labs ordered. Re-Evaluation/Progress #1 Text/Dict Note Patient's labs confirm diagnosis of DKA, with markedly elevated WBC. CT of the abdomen ordered. Will start and insulin drip and admit patient to the ICU for continued management. ED Course Medication(s) Ordered Medication(s) Ordered: Central Nervous System Agents Sig/Jan Start time Last Medication Dose Route Stop Time Status Admin Ketorolac 15 MG X1ED STA 08/18 0150 DC 08/18 Tromethamine IV 08/18 015 0227 Diagnostic Agents Sig/Jan Start time Last Medication Dose Route Stop Time Status Admin Iopamidol 100 ML .STK-MED ONE 08/18 0341 DC IV 08/18 034 0341 Electrolytic, Caloric, And Daniel Sig/Jan Start time Last Medication Dose Route Stop Time Status Admin Sodium Chloride 1,000 ML .Q10H 08/18 0515 AC IV 08/19 0412 Sodium Chloride 1,310 ML ONCE ONE 08/18 0230 DC 08/18 IV 08/18 0231 0228 Sodium Chloride 1,000 ML X1ED STA 08/18 0150 DC 08/18 IV 08/18 0249 0404 Gastrointestinal Drugs Sig/Jan Start time Last Medication Dose Route Stop Time Status Admin Ondansetron HCl 4 MG X1ED PRN PRN 08/18 0200 DC 08/18 IV 08/19 0159 0227 Hormones And Synthetic Substit Sig/Jan Start time Last Medication Dose Route Stop Time Status Admin Insulin Human Regular 100 UNIT X1ED STA 08/18 0 412 CKD 08/18 Sodium Chloride 99 ML IV 08/22 0811 0433 Patient Discharge Departure Vital Signs/Condition Vital Signs First Documented: Result Date Time Pulse Ox 100 08/18 0152 B/P 112/55 08/18 0152 B/P Mean 74 08/18 0152 O2 Delivery Room air 08/18 0152 Temp 36.6 08/18 0152 Pulse 97 08/18 0152 Resp 18 08/18 0152 Last Documented: Result Date Time Pulse Ox 99 08/18 0500 B/P 99/59 08/18 0500 B/P Mean 73 08/18 0500 Pulse 86 08/18 0500 Resp 21 08/18 0500 O2 Delivery Room air 08/18 0152 Temp 36.6 08/18 0152 All vital signs available at the time of this en try have been reviewed. Clinical Impression Clinical Impression Primary Impression: DKA (diabetic ketoacidosis) Secondary Impressions: ERIKA (acute kidney injury) , Cellulitis of foot, right, Hyperglycemia Disposition Decision Admit Admit Physician Name Wilbert Ramires MD )( Admission Accepts Yes )( Accepted Time 512 )( Accepted Date 08/18/22 Discharge/Care Plan Admit Note I have spoken with the patie nt and/or caregivers. I have explained the patient's condition, diagnoses and kellen atment plan based on the information available to me at this time. I have answered the patient's and/ or caregiver's questions and addressed any concerns. The patient and/or careg sagrario have as good an understanding of the patient 's diagnosis, condition and treatment plan as can be expected at this point. The patient has been stabilized within the capability of the emergency department. The patient wi ll be transported for further care and management or will be moved to an observation or inpatient service. I have communicated with the staff or medical p yuki taking over this patient's care. Critical Care Time Spent (minutes): 37 Services Performed Patient management by me, Walter kendall spent at bedside, Reviewing test results, Reviewing imaging, Discussing mira ent care, Documentation in record, Time with fam/surrogate Separately billable procedures excluded from walter kendall. Patient was critically ill due to: DKA My treatment and management were: Fluids, antibiotics, Initiation of insulin drip and IV sodium bicarb. Electronically Signed by Teodoro Perez MD on at 2233 RPT #:[id number] END OF REPORT
--- NOTE | 2022-10-25 14:54 | RAD REPORT ---
EXAM DESCRIPTION: RAD - Chest Single View - 10/25/2022 2:35 pm CLINICAL HISTORY: SOB COMPARISON: No comparisons FINDINGS: Lines: None. Lungs: Diffuse prominence of the pulmonary interstitium. Pleural: Small left effusion. Cardiac: The heart size is within normal limits. Mediastinum: Within normal limits. Bones: No acute fractures. Other: None IMPRESSION: Diffuse prominence of the pulmonary interstitium this may reflect either edema or atypic al infectious process.
[2022-10-25 15:48] LABS: Absolute Lymphocytes (CBC) 1.1 K/uL (0.7-4.9); Hematocrit 23.9 % (39.6-49.0); Lymphocytes % 12.2 % (15.3-44.8); MCV 86.5 fL (80-100); MPV 7.1 fL (7.6-11.3); Protime INR 1.05; RBC Red Blood Cell Count 2.76 M/uL (4.33-5.43)
--- NOTE | 2022-10-25 16:15 | RAD REPORT ---
EXAM DESCRIPTION: CT - Chest Abd Pelvis Wo Con - 10/25/2022 4:00 pm CLINICAL HISTORY: Chest and abdomen pain. SWELLING COMPARISON: No comparisons TECHNIQUE: Approximately 100 mL nonionic IV contrast was administered to the patient. All CT scans are performed using dose optimization technique as appropriate and may include automated exposure control or mA/KV adjustment according to patient size. FINDINGS: Perihilar ground-glass opacities are present bilaterally.Atelectasis is present.Small bila teral pleural effusions.No intrathoracic adenopathy.Coronary artery calcifications. 7 mm right upper lobe pulmonary nodule on image 21, series 202. The liver, spleen, pancreas, adrenal glands and kidneys are within normal limits. Gallbladder wall th ickening which is likely reactive. No bowel obstruction. Mild ascites. Diffuse small bowel and colonic wall thickening likely due to und erlying fluid status . Normal appendix. No pathologic lymphadenopathy in the abdomen or pelvis. Fole y catheter in the bladder. Anasarca. Body wall edema. Mild ascites. No worrisome osseous finding. IMPRESSION: 1. Anasarca including body wall edema, ascites, and pleural effusions. Perihilar ground- glass opacities may reflect either edema or inflammation. 2. Right upper lobe pulmonary nodule. Recommend six-month follow-up chest CT .
[2022-10-25 16:42] LABS: Potassium 3.9 mEq/L (3.5-5.1); Troponin High Sensitivity 10.3 pg/mL (<58.9)
[2022-10-25] MEDS ORDERED: FUROSEMIDE 40 MG/4 ML VIAL ONE (18:02)
--- NOTE | 2022-10-25 18:24 | ER ---
Nurse's Notes [facility] Name: Delroy Quintero Age: 57 yrs Sex: Male : 1965 Arrival Date: 10/25/2022 Time: 13:19 Bed 15 Private MD: Diagnosis: Generalized edema Presentation: 10/25 13:42 Chief complaint: Patient states: Abdominal swelling and lower ext. swelling for 1 week. ll1 Had RLE amputation beginning of August. Has had lopez cath since. HGB yesterday 7.8, hct 25.3. Coronavirus screen: Client denies travel out of the [place] in the last 14 days. At this time, the client does not indicate any symptoms associated with coronavirus-19. Ebola Screen: Patient denies travel to an Ebola-affected area in the 21 days before illness onset. Initial Sepsis Screen: Does the patient meet any 2 criteria? No. Patient's initial sepsis screen is negative. Does the patient have a suspected source of infection? No. Patient's initial sepsis screen is negative. Risk Assessment: Do you want to hurt yourself or someone else? Patient reports no desire to harm self or others. Onset of symptoms was October 19, 2022. 13:42 Method Of Arrival: Wheelchair ll1 13:42 Acuity: GUS 2 ll1 Triage Assessment: 14:34 General: Appears uncomfortable, Behavior is calm, cooperative, appropriate for age. ll1 Pain: Denies pain. : Reports lopez. Musculoskeletal: Swelling present in right leg and left leg Reports swelling abdomen down, both legs. Historical: - Allergies: 13:45 No Known Allergies; ll1 - PMHx: 13:45 Diabetes mellitus; Hypertensive disorder; Anemia; ERIKA; ll1 - PSHx: 13:45 R BKA; ll1 - Immunization history:: Adult Immunizations up to date. - Social history:: Smoking status: Patient denies any tobacco usage or history of. Screenin:37 [facility] ED Fall Risk Assessment (Adult) History of falling in the last 3 months, kr3 including since admission No falls in past 3 months (0 pts). Abuse screen: Denies threats or abuse. Nutritional screening: No deficits noted. Tuberculosis screening: No symptoms or risk factors identified. Assessment: 15:40 General: Appears in no apparent distress. comfortable, Behavior is calm, cooperative, kr3 appropriate for age. Pain: Denies pain. Neuro: Level of Consciousness is awake, alert, obeys commands, Oriented to person, place, time, situation. Cardiovascular: Patient's skin is warm and dry. Respiratory: No deficits noted. GI: No deficits noted. : Reports pain scrotum. EENT: No signs and/or symptoms were reported regarding the EENT system. Derm: No signs and/or symptoms reported regarding the dermatologic system. Musculoskeletal: Reports BKE recently. 15:41 Neuro: No deficits noted. kr3 Vital Signs: 13:42 BP 148 / 82; Pulse 84; Resp 17; Temp 98.4; Pulse Ox 96% ; Weight 72.57 kg; Height 5 ft. ll1 6 in. ; Pain 3/10; 16:05 BP 175 / 88; Pulse 82; Resp 18; Pulse Ox 96% on R/A; kr3 17:15 BP 171 / 85; Pulse 82; Resp 18; Pulse Ox 98% on R/A; kr3 18:15 BP 178 / 88; Pulse 82; Resp 18; Pulse Ox 97% on R/A; kr3 13:42 Body Mass Index 25.82 (72.57 kg, 167.64 cm) ll1 13:42 Pain Scale: Adult ll1 ED Course: 13:21 Patient arrived in ED. rg4 13:42 Arm band placed on. ll1 13:43 Morgan Rodgers PA is PHCP. jmm 13:43 Dominik Cadena MD is Attending Physician. jmm 13:45 Triage completed. ll1 14:37 XRAY Chest (1 view) In Process Unspecified. EDMS 14:40 Patient placed in an exam room, on a stretcher. ll1 15:47 Inserted saline lock: 20 gauge in left upper arm, using aseptic technique. wm 16:01 CT Chest Abdomen Pelvis W/O Contrast In Process Unspecified. EDMS 16:57 Holli Dupont RN is Primary Nurse. kr3 18:22 Vianca Johnston PA-C is Hospitalizing Provider. jmm 19:37 sitting in wheelchair, his preference. kr3 19:46 Report given to SELENA Phillips 2nd floor. kr3 20:25 No provider procedures requiring assistance completed. Patient admitted, IV remains in kr3 place. Administered Medications: 18:09 Drug: Furosemide IVP 40 mg Route: IVP; Site: left antecubital; kr3 19:39 Follow up: Response: No adverse reaction kr3 Medication: 19:38 VIS not applicable for this client. kr3 Outcome: 18:23 Decision to Hospitalize by Provider. [facility] 20:23 Patient left the ED. wm 20:25 Admitted to Med/surg via wheelchair, room 212. kr3 20:25 Condition: stable 20:25 Instructed on the need for admit. Signatures: Dispatcher [employer] EDMS Morgan Rodgers PA PA jmm Garcia, Rubi rg4 Faisal Ritchie RN RN ll1 Janis Anderson Holli Dupont RN RN kr3 Corrections: (The following items were deleted from the chart) 13:47 13:42 Chief complaint: Patient states: Abdominal swelling and lower ext. swelling for 1 ll1 week. Had RLE amputation beginning of August. Has had lopez cath since. 1 17:00 16:57 General: Appears in no apparent distress. comfortable, Behavior is calm, kr3 cooperative, appropriate for age, kr3 17:00 16:57 Pain: Denies pain. kr3 kr3 17:00 16:57 Neuro: No deficits noted. kr3 kr3 17:00 16:57 Cardiovascular: Patient's skin is warm and dry. kr3 kr3 17:00 16:57 Neuro: Level of Consciousness is awake, alert, obeys commands, Oriented to kr3 person, place, time, situation, kr3 17:00 16:57 Respiratory: No deficits noted. kr3 kr3 17:00 16:57 GI: No deficits noted. kr3 kr3 17:00 16:57 : Reports pain scrotum, kr3 kr3 17:00 16:57 EENT: No signs and/or symptoms were reported regarding the EENT system. kr3 kr3 17:00 16:57 Derm: No signs and/or symptoms reported regarding the dermatologic system. kr3 kr3 17:00 16:57 Musculoskeletal: Reports BKE recently kr3 kr3
--- NOTE | 2022-10-25 18:24 | EDPHYS ---
Physician Documentation [facility] Name: Delroy Quintero Age: 57 yrs Sex: Male : 1965 Arrival Date: 10/25/2022 Time: 13:19 Bed 15 Private MD: ED Physician Dominik Cadena HPI: 10/25 13:47 This 57 yrs old Male presents to ER via Wheelchair with complaints of Feet jmm Swelling, Problem With Urinary Catheter. 13:47 Is a 57-year-old male with history of diabetes mellitus, hypertension, anemia that jmm presents emerged part with complaints of abdominal swelling, penile swelling, lower extremity swelling which been worsening since he had a surgery performed for his below the knee amputation of the right leg approximately a month and a half ago. Patient had a outpatient labs drawn and was advised to go to the ED for further evaluation.. Historical: - Allergies: 13:45 No Known Allergies; ll1 - PMHx: 13:45 Diabetes mellitus; Hypertensive disorder; Anemia; ERIKA; ll1 - PSHx: 13:45 R BKA; ll1 - Immunization history:: Adult Immunizations up to date. - Social history:: Smoking status: Patient denies any tobacco usage or history of. ROS: 13:47 Constitutional: Negative for fever, chills, and weight loss, Cardiovascular: Negative jmm for chest pain, palpitations, and edema, Respiratory: Negative for shortness of breath, cough, wheezing, and pleuritic chest pain. 13:47 Abdomen/GI: Positive for Swelling. 13:47 MS/extremity: Positive for swelling. 13:47 All other systems are negative. Exam: 13:47 Constitutional: This is a well developed, well nourished patient who is awake, alert, jmm and in no acute distress. Head/Face: atraumatic. Eyes: EOMI, no conjunctival erythema appreciated ENT: Moist Mucus Membranes Neck: Trachea midline, Supple Chest/axilla: Normal chest wall appearance and motion. Cardiovascular: Regular rate and rhythm. No edema appreciated Respiratory: Normal respirations, no respiratory distress appreciated 13:47 Back: Normal ROM Skin: General appearance color normal 13:47 Abdomen/GI: Inspection: distension, that is moderate. 13:47 Musculoskeletal/extremity: Mild swelling over the lower extremities. 13:47 Skin: Appearance: Color: normal in color, Temperature: 13:47 Neuro: Orientation: is normal, Mentation: is normal, Memory: is normal. 13:47 Psych: Behavior/mood is pleasant, cooperative. Vital Signs: 13:42 BP 148 / 82; Pulse 84; Resp 17; Temp 98.4; Pulse Ox 96% ; Weight 72.57 kg; Height 5 ft. ll1 6 in. ; Pain 3/10; 16:05 BP 175 / 88; Pulse 82; Resp 18; Pulse Ox 96% on R/A; kr3 17:15 BP 171 / 85; Pulse 82; Resp 18; Pulse Ox 98% on R/A; kr3 18:15 BP 178 / 88; Pulse 82; Resp 18; Pulse Ox 97% on R/A; kr3 13:42 Body Mass Index 25.82 (72.57 kg, 167.64 cm) ll1 13:42 Pain Scale: Adult ll1 MDM: 13:47 Patient medically screened. [facility] 16:50 Differential diagnosis: Edema, anemia. [facility] 16:50 Data reviewed: vital signs, nurses notes, lab test result(s), radiologic studies, CT [facility] scan. Consideration of Admission/Observation Escalation of care including admission/observation considered. Management of patient was discussed with the following: Hospitalist: Elina Johnston PA-C. I considered the following discharge prescriptions or medication management in the emergency department Medications were administered in the Emergency Department. See MAR. External Records Reviewed: Outpatient lab results. Counseling: I had a detailed discussion with the patient and/or guardian regarding: the historical points, exam findings, and any diagnostic results supporting the discharge/admit diagnosis, lab results, radiology results, the need for further work-up and treatment in the hospital. ED course: Hemoglobin is slightly improved from outpatient labs. Patient does have a history of anemia. Denies any black tarry stools or any known bleeding.. 10/25 13:51 Order name: Basic Metabolic Panel; Complete Time: 17:01 [facility] 10/25 13:51 Order name: CBC with Diff; Complete Time: 15:54 [facility] 10/25 13:51 Order name: NT PRO-BNP; Complete Time: 17:01 [facility] 10/25 13:51 Order name: PT-INR; Complete Time: 15:54 [facility] 10/25 13:51 Order name: Troponin HS; Complete Time: 17:01 [facility] 10/25 13:51 Order name: Type And Screen; Complete Time: 16:22 [facility] 10/25 18:35 Order name: ABO/RH no charge [facility] 10/25 13:51 Order name: XRAY Chest (1 view); Complete Time: 15:08 [facility] 10/25 15:09 Order name: CT Chest Abdomen Pelvis W/O Contrast; Complete Time: 16:18 [facility] 10/25 13:51 Order name: EKG; Complete Time: 13:51 [facility] 10/25 13:51 Order name: Cardiac monitoring; Complete Time: 17:19 [facility] 10/25 13:51 Order name: EKG - Nurse/Tech; Complete Time: 17:19 [facility] 10/25 13:51 Order name: IV Saline Lock; Complete Time: 15:48 [facility] 10/25 13:51 Order name: Labs collected and sent; Complete Time: 17:00 [facility] 10/25 13:51 Order name: O2 Per Protocol; Complete Time: 17:00 [facility] 10/25 13:51 Order name: O2 Sat Monitoring; Complete Time: 17:00 [facility] 10/25 15:45 Order name: Labs - recollect needed: RECOLLECT GREEN TOP HEMOLYZED; Complete Time: 17:00eb Administered Medications: 18:09 Drug: Furosemide IVP 40 mg Route: IVP; Site: left antecubital; kr3 19:39 Follow up: Response: No adverse reaction kr3 Disposition Summary: 10/25/22 18:23 Hospitalization Ordered Hospitalization Status: Inpatient Admission [facility] Provider: Vianca Johnston [facility] Condition: Stable [facility] Problem: new jm Symptoms: are unchanged [facility] Bed/Room Type: Standard [facility] Room Assignment: 212(10/25/22 19:13) mw Diagnosis - Generalized edema [facility] Forms: - Medication Reconciliation Form [facility] - SBAR form [facility] Signatures: Dispatcher [employer] EDAnsley Smalls RN RN Morgan Singh PA PA Trisha Gonzalez Lynsay, RN RN ll1 Holli Dupont RN RN kr3 Corrections: (The following items were deleted from the chart) 19:13 18:23 kar pritchett
--- NOTE | 2022-10-25 18:53 | P.HP ---
Certification for Inpatient Patient admitted to: Observation With expected LOS: <2 Midnights Patient will require the following post-hospital care: None Practitioner: I am a practitioner with admitting privileges, knowledge of patient current condition, hospital course, and medical plan of care. Services: Services provided to patient in accordance with Admission requirements found in Title 42 Section 412.3 of the Code of Federal Regulations Patient History Date of Service: 10/25/22 Reason for admission: Anasarca History of Present Illness: Mr. Quintero is a 57 year old male with past medical history of hypertension, insulin dependent type 2 diabetes, anemia and hyperlipidemia who presented to the emergency department with complaints of swelling all over. 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 He was discharged with a lopez catheter due to his immobilization. Home health has been seeing him and he reports compliance with his medications. Lopez catheter still in place. He is very edematous today, 4+ edema to the legs. Swelling noted in his abdomen and he reports to his penis as well. Chest xray showed "Diffuse prominence of the pulmonary interstitium this may reflect either edema or atypical infectious process." CT chest abdomen pelvis showed "Anasarca including body wall edema, ascites, and pleural effusions. Perihilar groundglass opacities may reflect either edema or inflammation." He does not believe he has a diagnosis of congestive heart failure, but he does a have an active prescription for 20 mg lasix daily. He was given 40 mg IV lasix in the ED. Patient is not short of breath or hypoxic. We will admit for further management. Allergies No Known Allergies Allergy (Unverified 10/25/22 19:23) Home medications list reviewed: Yes Home Medications: Amitriptyline [Elavil] 25 mg PO BEDTIME 10/25/22 Amoxicillin/Potassium Clav [Amox-Clav 500-125 mg Tablet] 1 each PO BID 10/25/22 Furosemide 20 mg PO DAILY 10/25/22 Gabapentin 100 mg PO TID 10/25/22 Hydralazine HCl 100 mg PO Q8H 10/25/22 Insulin Glargine,Hum.rec.anlog [Insulin Glargine] 23 unit SQ BEDTIME 10/25/22 Insulin Lispro [Humalog Kwikpen U-100] 10 unit SQ TID 10/25/22 Labetalol HCl [Trandate] 200 mg PO TID 10/25/22 Sodium Bicarbonate 650 mg PO BID 10/25/22 Zinc Oxide 1 appl TP DAILY 10/25/22 cloNIDine HCL [Clonidine HCl] 0.1 mg PO BID 10/25/22 - Past Medical/Surgical History Diabetic: Yes -: Type 2 Diabetes, Insulin-Dependent -: Hypertension -: Anemia -: BKA Psychosocial/ Personal History: Patient is . - Social History Smoking Status: Never smoker Alcohol use: No CD- Drugs: No Caffeine use: Yes Place of Residence: Home Review of Systems Other: generalized swelling Physical Examination - Vital Signs Temperature: 98.4 F Blood Pressure: 178/88 Pulse: 82 Respirations: 18 Pulse Ox (%): 97 - Physical Exam General: Alert, In no apparent distress HEENT: Atraumatic, EOMI, Sclerae nonicteric Neck: Supple, 2+ carotid pulse no bruit Respiratory: Clear to auscultation bilaterally, Normal air movement Cardiovascular: Regular rate/rhythm, Normal S1 S2, Edema Gastrointestinal: Normal bowel sounds, No tenderness Musculoskeletal: No tenderness Integumentary: No rashes Neurological: Normal speech, Normal affect - Studies Laboratory Data (last 24 hrs) 10/25/22 16:17: Sodium 137, Potassium 3.9, BUN 25 H, Creatinine 1.26, Glucose 161 H 10/25/22 15:28: PT 11.5, INR 1.05 10/25/22 15:28: WBC 9.00, Hgb 8.0 L, Hct 23.9 L, Plt Count 239 Assessment and Plan - Problems (Diagnosis) (1) Anasarca Current Visit: Yes Status: Acute (2) Hypertension Current Visit: Yes Status: Chronic Qualifiers: Hypertension type: primary hypertension Qualified Code(s): I10 - Essential (primary) hypertension (3) Anemia Current Visit: Yes Status: Chronic Qualifiers: Anemia type: iron deficiency (4) Type 2 diabetes mellitus Current Visit: Yes Status: Chronic Qualifiers: Diabetes mellitus oysterman insulin use: with retirement use Diabetes mellitus complication status: with hyperglycemia Qualified Code(s): E11.65 - Type 2 diabetes mellitus with hyperglycemia; Z79.4 - terminal clerk (current) use of insulin (5) CKD (chronic kidney disease) Current Visit: Yes Status: Chronic Qualifiers: Chronic kidney disease stage: stage 3 (moderate) Chronic kidney disease stage 3 subtype: stage 3a (GFR 45-59) Qualified Code(s): N18.31 - Chronic kidney disease, stage 3a - Plan Patient is admitted for further management of anasarca. Continue diuresis with IV lasix. Monitor intake and output. Fluid restriction. Daily weights. He is not hypoxic, requiring O2, or complaining of dyspnea. Reports anemia is chronic, he does not know why. Will check iron studies. Obtain echocardiogram. Monitor and replete electrolytes per protocol. Reconcile and continue home medications. Resume home eliquis for VTE prophylaxis. Unclear if he is taking this for post op reasons or something else. Discharge Plan: Home Plan to discharge in: 24 Hours - Advance Directives Does patient have a Living Will: No Does patient have a Durable POA for Healthcare: No - Code Status/Comfort Care Code Status Assessed: Yes Code Status: Full Code Physician Review: Patient Assessed, Agree with Above Assessment and Plan Critical Care: No Time Spent Managing Pts Care (In Minutes): 50
[2022-10-25] MEDS ORDERED: ONDANSETRON 4 MG/2 ML VIAL IV PRN (20:40)
[2022-10-25] MEDS: INSULIN -REGULAR HUMAN 50 UNIT/0.5 ML ML SQ SCH (21:34)
[2022-10-25] MEDS: HYDRALAZINE HCL 25 MG TABLET PO SCH (23:03)
[2022-10-25] MEDS: ACETAMINOPHEN 500 MG TAB PO PRN (23:05)
[2022-10-25 23:15] LABS: Specific Gravity 1.025 (1.005-1.030); Urine Bacteria None Seen /HPF (<20); Urine Bilirubin NEGATIVE (Negative); Urine Blood 3+ (OVER) (Negative); Urine Clarity Turbid (Clear); Urine Color Yellow (Yellow); Urine Glucose NEGATIVE (Negative); Urine Mucus 3+ /HPF (None Seen); Urine Protein 1+ (Negative); Urine RBC >50 /HPF (None Seen); Urine Urobilinogen Normal (Normal); Urine pH 5.5 (5.0-7.0)
[2022-10-25 23:17] LABS: Urine WBC Clump Occasional /HPF (None Seen)
[2022-10-26 04:40] LABS: Hematocrit 21.6 % (39.6-49.0); Lymphocytes % 13.5 % (15.3-44.8); MPV 6.9 fL (7.6-11.3); RBC Red Blood Cell Count 2.51 M/uL (4.33-5.43)
[2022-10-26 05:21] LABS: Ferritin 597.6 ng/mL (26-388); Magnesium 1.9 mg/dL (1.6-2.4); Potassium 3.5 mEq/L (3.5-5.1); Thyroid Stimulating Hormone 2.57 uIU/mL (0.358-3.740)
[2022-10-26] MEDS: HYDRALAZINE HCL 25 MG TABLET PO SCH ×3 (05:59→21:03)
[2022-10-26] MEDS ORDERED: POTASSIUM CL SA 10 MEQ TAB PO ONE (09:00)
[2022-10-26] MEDS: INSULIN LISPRO 100 UNIT/1 ML SQ SCH ×3 (09:11→16:47)
[2022-10-26] MEDS: INSULIN -REGULAR HUMAN 50 UNIT/0.5 ML ML SQ SCH ×4 (09:12→20:44)
[2022-10-26] MEDS: GABAPENTIN 100 MG CAP PO SCH ×3 (09:15→20:44)
[2022-10-26] MEDS: SODIUM BICARB 325 MG TAB PO SCH ×2 (09:15→20:43)
[2022-10-26] MEDS: cloNIDine HCL 0.1 MG TAB PO SCH ×2 (09:15→20:44)
[2022-10-26] MEDS: LABETALOL HCL 100 MG TAB PO SCH ×3 (09:15→20:43)
[2022-10-26] MEDS: FUROSEMIDE 40 MG/4 ML VIAL IV SCH ×2 (09:16→16:43)
[2022-10-26] MEDS: ENOXAPARIN 40 MG/0.4 ML SQ SCH (09:16)
--- NOTE | 2022-10-26 09:53 | P.PN ---
Subjective Date of Service: 10/26/22 Chief Complaint: Anasarca Subjective: No new changes, Improving Physical Examination - Vital Signs Temperature: 99.0 F Blood Pressure: 165/81 Pulse: 87 Respirations: 16 Pulse Ox (%): 95 - Physical Exam General: Alert, Oriented x3 HEENT: Atraumatic, Normocephalic Neck: Supple Cardiovascular: Regular rate/rhythm, Normal S1 S2 Gastrointestinal: Soft and benign Musculoskeletal: Swelling Neurological: Normal speech - Studies Laboratory Data (last 24 hrs) 10/25/22 16:17: Sodium 137, Potassium 3.9, BUN 25 H, Creatinine 1.26, Glucose 161 H 10/25/22 15:28: PT 11.5, INR 1.05 10/25/22 15:28: WBC 9.00, Hgb 8.0 L, Hct 23.9 L, Plt Count 239 Assessment And Plan - Plan Assessment and Plan - Problems (Diagnosis) (1) Anasarca Current Visit: Yes Status: Acute (2) Hypertension Current Visit: Yes Status: Chronic Qualifiers: Hypertension type: primary hypertension Qualified Code(s): I10 - Essential (primary) hypertension (3) Anemia Current Visit: Yes Status: Chronic Qualifiers: Anemia type: iron deficiency (4) Type 2 diabetes mellitus Current Visit: Yes Status: Chronic Qualifiers: Diabetes mellitus intermediate insulin use: with watermaster use Diabetes mellitus complication status: with hyperglycemia Qualified Code(s): E11.65 - Type 2 diabetes mellitus with hyperglycemia; Z79.4 - shelter (current) use of insulin (5) CKD (chronic kidney disease) Current Visit: Yes Status: Chronic Qualifiers: Chronic kidney disease stage: stage 3 (moderate) Chronic kidney disease stage 3 subtype: stage 3a (GFR 45-59) Qualified Code(s): N18.31 - Chronic kidney disease, stage 3a - Plan Improving volume status. Continue diuresis with IV lasix. Monitor intake and output. Fluid restriction. Daily weights. Iron studies pending. Will evaluate. We will consider nephrology consultation echocardiogram report pending. Monitor and replete electrolytes per protocol. Continue to follow volume status closely. Discharge Plan: Home. Physician Review: Patient Assessed, Agree with Above Assessment and Plan
[2022-10-26] MEDS: ACETAMINOPHEN 500 MG TAB PO PRN (10:54)
[2022-10-26] MEDS: AMITRIPTYLINE 25 MG TAB PO SCH (20:44)
[2022-10-26] MEDS ORDERED: INSULIN GLARGINE 100 UNIT/ML SQ SCH (21:00)
[2022-10-26 23:04] VITALS: BMI 29.5
[2022-10-27] MEDS ORDERED: D10W 250 ML IV PRN ×3 (03:12→03:13)
[2022-10-27] MEDS ORDERED: DEXTROSE 10%-WATER 500 ML IV ONE (03:20)
[2022-10-27 03:44] LABS: Absolute Lymphocytes (CBC) 1.2 K/uL (0.7-4.9); Hematocrit 21.6 % (39.6-49.0); Lymphocytes % 14.1 % (15.3-44.8); MCV 85.4 fL (80-100); MPV 7.2 fL (7.6-11.3); RBC Red Blood Cell Count 2.53 M/uL (4.33-5.43)
[2022-10-27 04:16] LABS: Potassium 3.5 mEq/L (3.5-5.1)
[2022-10-27] MEDS: HYDRALAZINE HCL 25 MG TABLET PO SCH ×3 (06:08→21:32)
[2022-10-27] MEDS: INSULIN -REGULAR HUMAN 50 UNIT/0.5 ML ML SQ SCH ×4 (07:30→21:00)
[2022-10-27] MEDS: INSULIN LISPRO 100 UNIT/1 ML SQ SCH (08:00)
[2022-10-27] MEDS ORDERED: D50W 25 GM/50 ML SYRINGE IV PRN (08:57)
[2022-10-27] MEDS ORDERED: GLUCAGON 1 MG/VIAL IM PRN (08:57)
[2022-10-27] MEDS ORDERED: POTASSIUM CL SA 10 MEQ TAB PO ONE (09:00)
[2022-10-27] MEDS: ENOXAPARIN 40 MG/0.4 ML SQ SCH (09:06)
[2022-10-27] MEDS: FUROSEMIDE 40 MG/4 ML VIAL IV SCH ×2 (09:06→17:42)
[2022-10-27] MEDS: cloNIDine HCL 0.1 MG TAB PO SCH ×2 (09:06→21:32)
[2022-10-27] MEDS: GABAPENTIN 100 MG CAP PO SCH ×3 (09:06→21:31)
[2022-10-27] MEDS: SODIUM BICARB 325 MG TAB PO SCH ×2 (09:07→21:31)
[2022-10-27] MEDS: LABETALOL HCL 100 MG TAB PO SCH ×3 (09:07→21:31)
[2022-10-27] MEDS ORDERED: D10W 125 ML IV PRN (09:08)
[2022-10-27] MEDS: ACETAMINOPHEN 500 MG TAB PO PRN (10:09)
--- NOTE | 2022-10-27 10:18 | EKG ---
Test Date: 2022-10-25 Test Time: 17:10:15 Sewer Bricklayer: KALEN MEASUREMENT RESULTS: Intervals: Rate: 82 AR: 140 QRSD: 88 QT: 384 QTc: 448 Blairs: P: 125 AR: 140 QRS: 92 T: 56 INTERPRETIVE STATEMENTS: Suspect arm lead reversal, interpretation assumes no reversal Unusual P axis, possible ectopic atrial rhythm Low voltage QRS Septal infarct, age undetermined Lateral infarct, age undetermined Abnormal ECG No previous ECG available for comparison Electronically Signed On 10-27-22 10:14:03 CDT by Jg Lira
--- NOTE | 2022-10-27 19:07 | P.PN ---
Subjective Date of Service: 10/27/22 Chief Complaint: Anasarca No acute events overnight. He believes that his edema is gradually improving. He denies any chest pain, palpitations, or shortness of breath. Review of Systems 10-point ROS is otherwise unremarkable Cardiovascular: Edema Physical Examination - Vital Signs Temperature: 98.4 F Blood Pressure: 165/79 Pulse: 84 Respirations: 18 Pulse Ox (%): 96 - Physical Exam General: Alert, In no apparent distress, Oriented x3 HEENT: Atraumatic, Sclerae nonicteric Neck: JVD not distended Respiratory: Diminished, Crackles/rales (bibasilar) Cardiovascular: Regular rate/rhythm, Normal S1 S2, No gallops, No rubs, No murmurs, Edema (2+ LLE) Gastrointestinal: Normal bowel sounds, Soft and benign, No tenderness, No rebound, No guarding, Distended Musculoskeletal: No clubbing, Other (S/P right BKA) Integumentary: No rashes Neurological: Normal speech, Normal affect Assessment And Plan - Plan # Anasarca - suspect due to Acute Decompensated Congestive Heart Failure with Unknown Ejection Fraction - Consult Cardiology - recommendations appreciated - Chest x-ray = "diffuse prominence of the pulmonary interstitium this may refl ect either edema or atypical infectious process." - CT chest/abdomen/pelvis = "1. Anasarca including body wall edema, ascites, and pleural effusions. Perihilar ground-glass opacities may reflect either edema or inflammation. 2. Right upper lobe pulmonary nodule. Recommend six-month follow- up chest CT." - Ordered transthoracic echocardiogram - NT-Pro BNP = 1683 - Diuresis with IV furosemide - Continue home labetalol, hydralazine - Daily weights - Strict I/O - Cardiac diet, 1.5 L fluid restriction, 2 g Na restriction # Hypoglycemia in Type II Diabetes Mellitus # Anemia of Chronic Kidney Disease - Hgb A1c was 6.1 % - but difficult to interpret given anemia - PRN dextrose for hypoglycemia - Basal-bolus insulin discontinued - Reduced correction scale from moderate to mild # Hypertension - Continue home clonidine, hydralazine, labetalol # Recent Right Lower Extremity [id number] 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
[2022-10-27] MEDS: AMITRIPTYLINE 25 MG TAB PO SCH (21:32)
[2022-10-28 04:00] LABS: Absolute Lymphocytes (CBC) 1.2 K/uL (0.7-4.9); Hematocrit 21.1 % (39.6-49.0); Lymphocytes % 16.8 % (15.3-44.8); MCV 86.1 fL (80-100); MPV 7.4 fL (7.6-11.3); RBC Red Blood Cell Count 2.45 M/uL (4.33-5.43)
[2022-10-28 04:18] LABS: Potassium 4.2 mEq/L (3.5-5.1)
[2022-10-28] MEDS: HYDRALAZINE HCL 25 MG TABLET PO SCH ×3 (05:41→21:43)
--- NOTE | 2022-10-28 07:03 | ECHO ---
HEIGHT: 5 ft 6 in WEIGHT: 183 lb 4.8 oz DATE OF STUDY: 10/27/[address]: Vianca Johnston 2-DIMENSIONAL: YES M.MODE: YES DOPPLER: YES COLOR FLOW: YES TDS: PORTABLE: YES DEFINITY: BUBBLE STUDY: DIAGNOSIS: ANASARCA, POSSIBLE CONGESTIVE HEART FAILURE CARDIAC HISTORY: CATHERIZATION: NO SURGERY: NO PROSTHETIC VALVE: NO PACEMAKER: NO MEASUREMENTS (cm) DIASTOLIC (NORMALS) SYSTOLIC (NORMALS) IVSd 1.2 (0.6-1.2) LA Diam 3.1 (1.9-4.0) LVEF 62% LVIDd 4.6 (3.5-5.7) LVIDs 3.0 (2.0-3.5) %FS 33% LVPWd 1.3 (0.6-1.2) Ao Diam 3.1 (2.0-3.7) 2 DIMENSIONAL ASSESSMENT: RIGHT ATRIUM: NORMAL LEFT ATRIUM: NORMAL RIGHT VENTRICLE: NORMAL LEFT VENTRICLE: LEFT VENTRICULAR HYPERTROPHY TRICUSPID VALVE: NORMAL MITRAL VALVE: NORMAL PULMONIC VALVE: NORMAL AORTIC VALVE: NORMAL PERICARDIAL EFFUSION: NONE AORTIC ROOT: NORMAL LEFT VENTRICULAR WALL MOTION: NORMAL DOPPLER/COLOR FLOW: TRACE TRICUSPID REGURGITATION COMMENTS: 1. TRACE PERICARDIAL EFFUSION 2. TRACE TRICUSPID REGURGITATION. NORMAL RIGHT VENTRICULAR SYSTOLIC PRESSURE. 3. LEFT VENTRICULAR HYPERTROPHY 4. NORMAL EJECTION FRACTION AND WALL MOTION TECHNOLOGIST: ISHAAN HOUSER
[2022-10-28] MEDS: INSULIN -REGULAR HUMAN 50 UNIT/0.5 ML ML SQ SCH ×4 (07:30→21:00)
[2022-10-28] MEDS: FUROSEMIDE 40 MG/4 ML VIAL IV SCH ×2 (10:05→16:45)
[2022-10-28] MEDS: ACETAMINOPHEN 500 MG TAB PO PRN ×2 (10:05→21:47)
[2022-10-28] MEDS: cloNIDine HCL 0.1 MG TAB PO SCH ×2 (10:06→21:43)
[2022-10-28] MEDS: GABAPENTIN 100 MG CAP PO SCH ×3 (10:06→21:43)
[2022-10-28] MEDS: ENOXAPARIN 40 MG/0.4 ML SQ SCH (10:06)
[2022-10-28] MEDS: SODIUM BICARB 325 MG TAB PO SCH ×2 (10:10→21:42)
[2022-10-28] MEDS: LABETALOL HCL 100 MG TAB PO SCH ×3 (10:10→21:43)
--- NOTE | 2022-10-28 17:26 | P.PN ---
Subjective Date of Service: 10/28/22 Chief Complaint: Anasarca No acute events overnight. He remains edematous, but it seems to be improving. Per Dr. Lira, he is unsure that his anasarca is from congestive heart failure. Will evaluate for nephrotic syndrome and liver disease. He denies any chest pain, palpitations, or shortness of breath. Review of Systems 10-point ROS is otherwise unremarkable Cardiovascular: Edema Physical Examination - Vital Signs Temperature: 97.1 F Blood Pressure: 175/78 Pulse: 76 Respirations: 20 Pulse Ox (%): 96 - Studies Laboratory Data (last 24 hrs) 10/28/22 02:27: Sodium 135 L D, Potassium 4.2 D, BUN 21 H, Creatinine 1.30, Gl ucose 240 H 10/28/22 02:27: WBC 7.00, Hgb 7.2 L, Hct 21.1 L, Plt Count 220 Assessment And Plan - Plan - Physical Exam General: Alert, In no apparent distress, Oriented x3 HEENT: Atraumatic, Sclerae nonicteric Neck: JVD not distended Respiratory: Diminished, Crackles/rales (bibasilar) Cardiovascular: Regular rate/rhythm, No murmurs, Edema (2+ LLE) Gastrointestinal: Normal bowel sounds, Soft and benign, No tenderness, Distended Musculoskeletal: No clubbing, Other (S/P right BKA) Integumentary: No rashes Neurological: Normal speech, Normal affect # Anasarca - Unclear Etiology - Consult Cardiology and spoke with Dr. Lira - recommendations appreciated - He does not believe anasarca to be secondary to congestive heart failure - 1+ proteinuria not consistent with nephrotic syndrome - Will order LFTs and albumin level - Chest x-ray = "diffuse prominence of the pulmonary interstitium this may reflect either edema or atypical infectious process." - CT chest/abdomen/pelvis = "1. Anasarca including body wall edema, ascites, and pleural effusions. Perihilar ground-glass opacities may reflect either edema or inflammation. 2. Right upper lobe pulmonary nodule. Recommend six-month follow- up chest CT." - Transthoracic echocardiogram = "1. Trace pericardial effusion. 2. Trace tricuspid regurgitation. Normal right ventricular systolic pressure. 3. Left ventricular hypertrophy. 4. Normal ejection fraction and wall motion." - NT-Pro BNP = 1683 - Diuresis with IV furosemide - Continue home labetalol, hydralazine - Daily weights - Strict I/O - Cardiac diet, 1.5 L fluid restriction, 2 g Na restriction # Hypoglycemia in Type II Diabetes Mellitus - improved # Anemia of Chronic Kidney Disease - Hgb A1c was 6.1 % - but difficult to interpret given anemia - PRN dextrose for hypoglycemia - Basal-bolus insulin discontinued - Reduced correction scale from moderate to mild # Hypertension - Continue home clonidine, hydralazine, labetalol # Recent Right Lower Extremity [id number] 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
[2022-10-28 18:48] LABS: Albumin 2.2 g/dL (3.4-5.0); Bilirubin Direct 0.2 mg/dL (0-0.2); Bilirubin Indirect, Calculated 0.2 mg/dL (0.2-0.8); Bilirubin Total 0.4 mg/dL (0.2-1.0); Protein, Total 6.9 g/dL (6.4-8.2)
[2022-10-28] MEDS: AMITRIPTYLINE 25 MG TAB PO SCH (21:43)
[2022-10-29 04:07] LABS: Absolute Lymphocytes (CBC) 1.1 K/uL (0.7-4.9); Hematocrit 20.8 % (39.6-49.0); Lymphocytes % 14.2 % (15.3-44.8); MPV 7.3 fL (7.6-11.3); RBC Red Blood Cell Count 2.42 M/uL (4.33-5.43)
[2022-10-29 04:27] LABS: Albumin 2.1 g/dL (3.4-5.0); Bilirubin Total 0.3 mg/dL (0.2-1.0); Potassium 4.1 mEq/L (3.5-5.1); Protein, Total 6.4 g/dL (6.4-8.2)
[2022-10-29] MEDS: HYDRALAZINE HCL 25 MG TABLET PO SCH ×3 (06:05→21:19)
[2022-10-29] MEDS: INSULIN -REGULAR HUMAN 50 UNIT/0.5 ML ML SQ SCH ×4 (07:30→21:00)
[2022-10-29] MEDS: ENOXAPARIN 40 MG/0.4 ML SQ SCH (09:48)
[2022-10-29] MEDS: SODIUM BICARB 325 MG TAB PO SCH (09:49)
[2022-10-29] MEDS: LABETALOL HCL 100 MG TAB PO SCH ×3 (09:49→21:19)
[2022-10-29] MEDS: GABAPENTIN 100 MG CAP PO SCH ×3 (09:49→21:19)
[2022-10-29] MEDS: cloNIDine HCL 0.1 MG TAB PO SCH ×2 (09:49→21:19)
[2022-10-29] MEDS: FUROSEMIDE 40 MG/4 ML VIAL IV SCH ×2 (09:50→16:56)
--- NOTE | 2022-10-29 12:23 | PN ---
Date of Progress Note: 10/28/2022 Mr. Quintero is 57, came in with acute kidney injury, creatinine 1.33, right BKA history, diabetes, hy pertension, anemia. Blood pressure is better controlled. He is on Lasix and diuresing well. His he moglobin is 7.3. Echocardiogram was perfectly normal without any diastolic dysfunction or systolic d ysfunction. based on his heart. Nephrology is involved. The case was discussed with Dr. Macario. Outpatient Lexiscan is reasonable down the road. I would definitely continue treatment for blood pressure for issues going on such as connective tissue disease or autoimmune disease s and I will leave that up to Dr. Macario to work on. I will sign off his case otherwise. MATHEUS/SARAHY Voice ID: [id number] Report ID: [id number]
--- NOTE | 2022-10-29 12:29 | CON ---
Date of Consultation: 10/27/2022 Reason For Consultation: Anasarca. History Of Present Illness: The patient is 57; has a history of right BKA, has a history of diabetes , hypertension, anemia, and has had history of acute kidney injury in the past. Came in with a creat inine of 1.33, hemoglobin 7.3. Chest x-ray showed possible congestive heart failure. The patient de nied any nausea, vomiting, diaphoresis, PND, orthopnea, pedal edema. Denied any chest pain, palpitat ion, syncope, fever or chills. Allergies: NONE. Review of Systems: Negative. Social History: Negative. Family History: Negative. Medications: At home include Lasix, clonidine, hydralazine, insulin, and labetalol. Physical Examination: Vital Signs: Stable, afebrile. HEENT: Negative. Neck: Supple with no bruit. Chest: Did not have any rales. Cardiac: Revealed a regular rhythm and rate with S4 gallops. Abdomen: Obese. Extremities: He is status post right BKA. His left leg showed significant 2 to 3+ edema. Laboratory Data: Creatinine is 1.23, hemoglobin is 7.3. Chest x-ray showed possible failure. EKG i s nonspecific. Impression And Plan: 1.Acute kidney injury, mild. 2.Hypertension, poorly controlled. 3.Diabetes. 4.Anemia. 5.Status post right [id number]. Echocardiogram is pending. I think he should have an ou tpatient Lexiscan eventually. I would get Nephrology involved in his care considering his diffuse ed candy. Continue his present regimen for now. May need to be more aggressive with Lasix on him for now . We will continue to follow. MATHEUS/SARAHY Voice ID: [id number] Report ID: [id number]
[2022-10-29] MEDS ORDERED: ALBUMIN HUMAN 25% 100 ML IV SCH (16:00)
--- NOTE | 2022-10-29 16:32 | P.CNS ---
Date of Consult: 10/29/22 Reason for Consult: Generalized edema, diuretic management Requesting Physician: Altaf Macario Chief Complaint: Anasarca History of Present Illness: Pt is a 57 year old male with past medical history of hypertension, insulin dependent type 2 diabetes with unspecified complications who presented to the emergency department with complaints of increased generalized edema. Patient had an MRSA infection of his RLE resulting in BKA at outside hospital just over 1 month ago. He was discharged with a lopez catheter for unclear reasons. Pt reports until recently he also had scrotal edema and CT scan done on admission showed mild ascited, anasarca/body wall edema. Allergies No Known Allergies Allergy (Unverified 10/25/22 19:23) Home Medications: Amitriptyline [Elavil] 25 mg PO BEDTIME 10/25/22 Amoxicillin/Potassium Clav [Amox-Clav 500-125 mg Tablet] 1 each PO BID 10/25/22 Furosemide 20 mg PO DAILY 10/25/22 Gabapentin 100 mg PO TID 10/25/22 Hydralazine HCl 100 mg PO Q8H 10/25/22 Insulin Glargine,Hum.rec.anlog [Insulin Glargine] 23 unit SQ BEDTIME 10/25/22 Insulin Lispro [Humalog Kwikpen U-100] 10 unit SQ TID 10/25/22 Labetalol HCl [Trandate] 200 mg PO TID 10/25/22 Sodium Bicarbonate 650 mg PO BID 10/25/22 Zinc Oxide 1 appl TP DAILY 10/25/22 cloNIDine HCL [Clonidine HCl] 0.1 mg PO BID 10/25/22 - Past Medical/Surgical History Diabetic: Yes -: Type 2 Diabetes, Insulin-Dependent -: Hypertension -: Anemia -: Hyperlipidemia -: BKA Psychosocial/ Personal History: Patient is . - Social History Alcohol use: No CD- Drugs: No Caffeine use: Yes Place of Residence: Home Review of Systems General: Weakness ENT: Unremarkable Respiratory: Shortness of Breath Cardiovascular: Edema, As per HPI Gastrointestinal: Unremarkable Genitourinary: Other (Lopez has not been exchanged since placement at OSH a month ago pt reports), As per HPI Musculoskeletal: Pedal edema, As per HPI Neurological: Weakness Physical Examination Temp Pulse Resp BP Pulse Ox 98.4 F 84 18 152/79 H 95 10/29/22 08:00 10/29/22 14:13 10/29/22 08:00 10/29/22 14:13 10/29/22 08:00 General: Alert, In no apparent distress, Oriented x3 HEENT: Atraumatic, Normocephalic Neck: Supple Respiratory: Normal air movement, Diminished Cardiovascular: Regular rate/rhythm, Edema Gastrointestinal: Soft and benign, No tenderness, Distended Musculoskeletal: Swelling, Other (Rt BKA) Integumentary: No rashes Neurological: Normal speech, Normal tone, Normal affect Conclusions/Impression: A/P) 1. Serum Cr raised above reference range, pt may certainly have developed some e arlier stage CKD II/IIIa in the setting of his chronic health conditions 2. Generalized edema, anasarca appears to be multifactorial but in the setting of low albumin state, hypoalbuminemia with recent illnesses, other. 3. Agree with IV lasix, will add IV albumin doses beforehand. Will monitor UOP and weights 4. Will check 24h urine protein and UPEP. 5. UA with abnormal findings including microcopic hematuria in the setting of indwelling bladder catheter. Will send off urine culture to assess for yeast and other. Will request lopez exchange, will hold off on voiding trial currently given plans for diuresis, pt may need to see Urology as OP for that. 6. HTN, BP mod elevated, if pt does have proteinuria and BP remain elevated, will see to add ACEi or ARB. Alejandro Angel MD, SHIRA
[2022-10-29] MEDS: ACETAMINOPHEN 500 MG TAB PO PRN (16:54)
--- NOTE | 2022-10-29 20:33 | P.PN ---
Subjective Date of Service: 10/29/22 Chief Complaint: Anasarca No acute events overnight. Although he reports good urine output, his anasarca is relatively unchanged compared to yesterday. Consulted Nephrology to evaluate anasarca and spoke with Dr. Angel, his recommendations are appreciated. He denies any chest pain, palpitations, or shortness of breath. Review of Systems 10-point ROS is otherwise unremarkable Cardiovascular: Edema Physical Examination - Vital Signs Temperature: 98 F Blood Pressure: 152/79 Pulse: 84 Respirations: 16 Pulse Ox (%): 97 Assessment And Plan - Plan - Physical Exam General: Alert, In no apparent distress, Oriented x3 HEENT: Atraumatic, Sclerae nonicteric Neck: JVD not distended Respiratory: Diminished, Crackles/rales (faint bibasilar) Cardiovascular: Regular rate/rhythm, No murmurs, Edema (2+ LLE) Gastrointestinal: Normal bowel sounds, Soft and benign, No tenderness, Distended Musculoskeletal: No clubbing, Other (S/P right BKA) Integumentary: No rashes Neurological: Normal speech, Normal affect # Anasarca with Hypoalbuminemia- Unclear Etiology - Consult Cardiology and spoke with Dr. Lira - recommendations appreciated - He does not believe anasarca to be secondary to congestive heart failure - 1+ proteinuria not consistent with nephrotic syndrome - Consulted Nephrology and spoke with Dr. Angel - recommendations appreciated - Chest x-ray = "diffuse prominence of the pulmonary interstitium this may reflect either edema or atypical infectious process." - CT chest/abdomen/pelvis = "1. Anasarca including body wall edema, ascites, and pleural effusions. Perihilar ground-glass opacities may reflect either edema or inflammation. 2. Right upper lobe pulmonary nodule. Recommend six-month follow- up chest CT." - Transthoracic echocardiogram = "1. Trace pericardial effusion. 2. Trace tricuspid regurgitation. Normal right ventricular systolic pressure. 3. Left ventricular hypertrophy. 4. Normal ejection fraction and wall motion." - NT-Pro BNP = 1683 - Diuresis with IV furosemide - Continue home labetalol, hydralazine - Daily weights - Strict I/O - Cardiac diet, 1.5 L fluid restriction, 2 g Na restriction # Hypoglycemia in Type II Diabetes Mellitus - improved # Anemia of Chronic Kidney Disease - Hgb A1c was 6.1 % - but difficult to interpret given anemia - PRN dextrose for hypoglycemia - Basal-bolus insulin discontinued - Reduced correction scale from moderate to mild # Hypertension - Continue home clonidine, hydralazine, labetalol # Recent Right Lower Extremity Abrpe-oqf-[id number] 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
[2022-10-29] MEDS: AMITRIPTYLINE 25 MG TAB PO SCH (21:19)
[2022-10-30 03:46] LABS: Hematocrit 20.7 % (39.6-49.0); MCV 85.6 fL (80-100); MPV 7.2 fL (7.6-11.3); RBC Red Blood Cell Count 2.41 M/uL (4.33-5.43)
[2022-10-30 04:00] LABS: Albumin 2.3 g/dL (3.4-5.0); Bilirubin Total 0.3 mg/dL (0.2-1.0); Potassium 4.1 mEq/L (3.5-5.1); Protein, Total 6.6 g/dL (6.4-8.2)
[2022-10-30] MEDS: HYDRALAZINE HCL 25 MG TABLET PO SCH ×3 (05:48→22:05)
[2022-10-30] MEDS: INSULIN -REGULAR HUMAN 50 UNIT/0.5 ML ML SQ SCH ×4 (07:30→21:00)
[2022-10-30] MEDS ORDERED: NA CHLORIDE 0.9% 250 ML IV SCH (08:00)
[2022-10-30] MEDS: ALBUMIN HUMAN 25% 100 ML IV SCH ×2 (08:41→15:59)
[2022-10-30] MEDS: FUROSEMIDE 40 MG/4 ML VIAL IV SCH ×2 (08:41→15:59)
[2022-10-30] MEDS: LABETALOL HCL 100 MG TAB PO SCH ×3 (08:42→22:04)
[2022-10-30] MEDS: ENOXAPARIN 40 MG/0.4 ML SQ SCH (08:42)
[2022-10-30] MEDS: GABAPENTIN 100 MG CAP PO SCH ×3 (08:42→22:05)
[2022-10-30] MEDS: cloNIDine HCL 0.1 MG TAB PO SCH ×2 (08:42→22:05)
[2022-10-30] MEDS: LOSARTAN POTASSIUM 50 MG TABLET PO SCH (14:21)
--- NOTE | 2022-10-30 16:09 | P.PN ---
(S) Pt reports peripheral edema improving on IV lasix, lopez removed and pt claims to be voiding without issues (O) Vitals reviewed in the EMR General: Alert, In no apparent distress, Oriented x3 HEENT: Atraumatic, Normocephalic Neck: Supple Respiratory: Normal air movement, Diminished Cardiovascular: Regular rate/rhythm, Edema Gastrointestinal: Soft and benign, No tenderness, mildly distended. Lopez removed Musculoskeletal: Swelling, Other (Rt BKA) Integumentary: No rashes Neurological: Normal speech, Normal tone, Normal affect Conclusions/Impression: A/P) 1. Serum Cr raised mildly above reference range, pt may certainly have developed some earlier stage CKD II/IIIa in the setting of his chronic health conditions 2. Generalized edema, anasarca appears to be multifactorial but in the setting of low albumin state, hypoalbuminemia with recent illnesses, other. 3. Agree with IV lasix, will add IV albumin doses beforehand. Will monitor UOP and weights 4. Will check 24h urine protein and UPEP. 5. UA with abnormal findings including microcopic hematuria in the setting of indwelling bladder catheter. Did send off urine culture to assess for yeast and other. Lopez has been removed, pt thus far tolerating voiding trial 6. HTN, BP mod elevated, will add ARB. Alejandro Angel MD, SHIRA
[2022-10-30 16:49] LABS: Hematocrit 24.4 % (39.6-49.0)
[2022-10-30] MEDS: ACETAMINOPHEN 500 MG TAB PO PRN (17:29)
--- NOTE | 2022-10-30 19:58 | P.PN ---
Subjective Date of Service: 10/30/22 Chief Complaint: Anasarca No acute events overnight. This morning, his hemoglobin was 6.9, so 1 unit of pRBCs was ordered. He denies any concerns at this time. Appreciate Nephrology recommendations - several studies remain pending at this time. He denies any chest pain, palpitations, or shortness of breath. Review of Systems 10-point ROS is otherwise unremarkable Cardiovascular: Edema Physical Examination - Vital Signs Temperature: 98.0 F Blood Pressure: 170/79 Pulse: 82 Respirations: 19 Pulse Ox (%): 95 Assessment And Plan - Plan - Physical Exam General: Alert, In no apparent distress, Oriented x3 HEENT: Atraumatic, Sclerae nonicteric Neck: JVD not distended Respiratory: Diminished, clear to auscultation bilaterally without wheezes, rhonchi, or rales Cardiovascular: Regular rate/rhythm, No murmurs, Edema (1-2+ LLE) Gastrointestinal: Normal bowel sounds, Soft and benign, No tenderness, Distended Musculoskeletal: No clubbing, Other (S/P right BKA) Integumentary: No rashes Neurological: Normal speech, Normal affect # Anasarca with Hypoalbuminemia- Unclear Etiology - Consult Cardiology and spoke with Dr. Lira - recommendations appreciated - He does not believe anasarca to be secondary to congestive heart failure - 1+ proteinuria not consistent with nephrotic syndrome - Consulted Nephrology and spoke with Dr. Angel - recommendations appreciated - Chest x-ray = "diffuse prominence of the pulmonary interstitium this may reflect either edema or atypical infectious process." - CT chest/abdomen/pelvis = "1. Anasarca including body wall edema, ascites, and pleural effusions. Perihilar ground-glass opacities may reflect either edema or inflammation. 2. Right upper lobe pulmonary nodule. Recommend six-month follow- up chest CT." - Transthoracic echocardiogram = "1. Trace pericardial effusion. 2. Trace tricuspid regurgitation. Normal right ventricular systolic pressure. 3. Left ventricular hypertrophy. 4. Normal ejection fraction and wall motion." - NT-Pro BNP = 1683 - Diuresis with IV furosemide Albumin to be given prior to furosemide - Continue home labetalol, hydralazine - Daily weights - Strict I/O - Cardiac diet, 1.5 L fluid restriction, 2 g Na restriction # Hypoglycemia in Type II Diabetes Mellitus - improved # Anemia of Chronic Kidney Disease - Hgb A1c was 6.1 % - but difficult to interpret given anemia -1 unit PRBCs transfused today for hemoglobin of 6.9 - PRN dextrose for hypoglycemia - Basal-bolus insulin discontinued - Reduced correction scale from moderate to mild # Hypertension - Continue home clonidine, hydralazine, labetalol # Recent Right Lower Extremity Dqana-vlv-Evez 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
[2022-10-30] MEDS: AMITRIPTYLINE 25 MG TAB PO SCH (22:05)
[2022-10-31 03:42] LABS: Absolute Lymphocytes (CBC) 1.1 K/uL (0.7-4.9); Lymphocytes % 14.7 % (15.3-44.8); MCV 84.8 fL (80-100); MPV 7.1 fL (7.6-11.3); RBC Red Blood Cell Count 2.83 M/uL (4.33-5.43)
[2022-10-31 03:49] LABS: Magnesium 1.9 mg/dL (1.6-2.4)
[2022-10-31] MEDS: HYDRALAZINE HCL 25 MG TABLET PO SCH ×3 (05:38→22:15)
[2022-10-31 06:59] VITALS: O2SAT 94
[2022-10-31] MEDS: INSULIN -REGULAR HUMAN 50 UNIT/0.5 ML ML SQ SCH ×4 (07:30→21:11)
[2022-10-31] MEDS: ENOXAPARIN 40 MG/0.4 ML SQ SCH (09:07)
[2022-10-31] MEDS: ALBUMIN HUMAN 25% 100 ML IV SCH (09:07)
[2022-10-31] MEDS: GABAPENTIN 100 MG CAP PO SCH ×3 (09:08→21:07)
[2022-10-31] MEDS: LOSARTAN POTASSIUM 50 MG TABLET PO SCH (09:08)
[2022-10-31] MEDS: FUROSEMIDE 40 MG/4 ML VIAL IV SCH ×2 (09:08→17:00)
[2022-10-31] MEDS: LABETALOL HCL 100 MG TAB PO SCH ×3 (09:08→21:07)
[2022-10-31] MEDS: cloNIDine HCL 0.1 MG TAB PO SCH ×2 (09:08→21:07)
--- NOTE | 2022-10-31 16:04 | P.PN ---
Subjective Date of Service: 10/31/22 Chief Complaint: Anasarca No acute events overnight. His edema seems to be improving with the albumin/furosemide. 24-hour urine collection was completed this morning. He has been working well with PT. He reports that his surgical rob in his right residual limb are due to be removed. General Surgery consulted. He denies any chest pain, palpitations, or shortness of breath. Review of Systems 10-point ROS is otherwise unremarkable Cardiovascular: Edema Physical Examination - Vital Signs Temperature: 99.2 F Blood Pressure: 148/72 Pulse: 89 Respirations: 20 Pulse Ox (%): 94 Assessment And Plan - Plan - Physical Exam General: Alert, In no apparent distress, Oriented x3 HEENT: Atraumatic, Sclerae nonicteric Neck: JVD not distended Respiratory: Diminished, clear to auscultation bilaterally without wheezes, rhonchi, or rales Cardiovascular: Regular rate/rhythm, No murmurs, Edema (1-2+ LLE) Gastrointestinal: Normal bowel sounds, Soft and benign, No tenderness, Distended Musculoskeletal: No clubbing, Other (S/P right BKA) Integumentary: No rashes Neurological: Normal speech, Normal affect # Anasarca with Hypoalbuminemia- Unclear Etiology - Consult Cardiology and spoke with Dr. Lira - recommendations appreciated - He does not believe anasarca to be secondary to congestive heart failure - 1+ proteinuria not consistent with nephrotic syndrome - Consulted Nephrology and spoke with Dr. Angel - recommendations appreciated - Chest x-ray = "diffuse prominence of the pulmonary interstitium this may reflect either edema or atypical infectious process." - CT chest/abdomen/pelvis = "1. Anasarca including body wall edema, ascites, and pleural effusions. Perihilar ground-glass opacities may reflect either edema or inflammation. 2. Right upper lobe pulmonary nodule. Recommend six-month follow- up chest CT." - Transthoracic echocardiogram = "1. Trace pericardial effusion. 2. Trace tricuspid regurgitation. Normal right ventricular systolic pressure. 3. Left ventricular hypertrophy. 4. Normal ejection fraction and wall motion." - NT-Pro BNP = 1683 - Diuresis with IV furosemide Albumin to be given prior to furosemide - Continue home labetalol, hydralazine - Daily weights - Strict I/O - Cardiac diet, 1.5 L fluid restriction, 2 g Na restriction # Hypoglycemia in Type II Diabetes Mellitus - improved # Anemia of Chronic Kidney Disease - Hgb A1c was 6.1 % - but difficult to interpret given anemia -1 unit PRBCs transfused on 10/30 for hemoglobin of 6.9 - PRN dextrose for hypoglycemia - Basal-bolus insulin discontinued - Reduced correction scale from moderate to mild # Hypertension - Continue home clonidine, hydralazine, labetalol # Recent Right Lower Extremity [id number] Amputation secondary to MRSA Infection - PT consulted - General Surgery consulted to remove rob - Continue home amitryptiline, gabanpentin # Right Pulmonary Nodule - Follow-up with PCP for further evaluation # Microscopic Hematuria - Follow-up with Urology as an outpatient Altaf Macario M.D.
[2022-10-31] MEDS: AMITRIPTYLINE 25 MG TAB PO SCH (21:07)
[2022-10-31] MEDS: ACETAMINOPHEN 500 MG TAB PO PRN (21:12)
[2022-11-01 03:57] LABS: Magnesium 1.9 mg/dL (1.6-2.4); Potassium 4.1 mEq/L (3.5-5.1)
[2022-11-01] MEDS: HYDRALAZINE HCL 25 MG TABLET PO SCH ×2 (06:32→14:41)
[2022-11-01] MEDS: INSULIN -REGULAR HUMAN 50 UNIT/0.5 ML ML SQ SCH ×2 (07:30→12:22)
[2022-11-01] MEDS: LABETALOL HCL 100 MG TAB PO SCH ×2 (08:11→14:42)
[2022-11-01] MEDS: FUROSEMIDE 40 MG/4 ML VIAL IV SCH (08:11)
[2022-11-01] MEDS: cloNIDine HCL 0.1 MG TAB PO SCH (08:12)
[2022-11-01] MEDS: LOSARTAN POTASSIUM 50 MG TABLET PO SCH (08:12)
[2022-11-01] MEDS: GABAPENTIN 100 MG CAP PO SCH ×2 (08:12→14:42)
[2022-11-01] MEDS: ENOXAPARIN 40 MG/0.4 ML SQ SCH (08:12)
--- NOTE | 2022-11-01 08:19 | P.DS ---
Admission Date: 10/28/22 Discharge Date: 11/01/22 Disposition: ROUTINE DISCHARGE Discharge Condition: GOOD Reason for Admission: Anasarca Consultations: 1. Nephrology 2. Cardiology 3. General Surgery Hospital Course: DIAGNOSES: # Anasarca with Hypoalbuminemia - Unclear Etiology # Hypoglycemia followed by Hyperglycemia in Type II Diabetes Mellitus - improved # Anemia of Chronic Kidney Disease # Hypertension # Recent Right Lower Extremity [id number] Amputation secondary to MRSA Infection # Right Pulmonary Nodule # Microscopic Hematuria HOSPITAL COURSE: Mr. 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 He was admitted to the Medicine service. Upon further evaluation, his chest x- ray revealed, "diffuse prominence of the pulmonary interstitium this may reflect either edema or atypical infectious process." His CT abdomen/pelvis revealed, "1. Anasarca including body wall edema, ascites, and pleural effusions. Perihilar ground-glass opacities may reflect either edema or inflammation. 2. Right upper lobe pulmonary nodule. Recommend six-month follow-up chest CT." Cardiology was consulted and he was evaluated by Dr. Lira. A transthoracic echocardiogram revealed, "1. Trace pericardial effusion. 2. Trace tricuspid regurgitation. Normal right ventricular systolic pressure. 3. Left ventricular hypertrophy. 4. Normal ejection fraction and wall motion." Dr. Lira did not feel that his anasarca was secondary to congestive heart failure. His LFTs and liver imaging on CT did not suggest liver disease. Nephrology was consulted and he was evaluated by Dr. Angel. He was treated with IV albumin followed by IV furosemide and, over the course of his hospitalization, his anasarca improved significantly. Today, his symptoms have completely resolved and his edema is mild. Dr. Angel initiated a thorough evaluation, and results are pending at the time of discharge - he will follow these results up with him in clinic. Dr. Angel has cleared him for discharge with furosemide 40 mg every morning/20 mg every afternoon, potassium chloride 10 mEq daily, and losartan 50 mg daily Of note, he experienced hypoglycemia during his hospitalization and his home insulin regimen was discontinued. He was restarted on low-dose insulin lispro based on the sliding scale doses that he had been receiving. He was advised to monitor his glucose levels and to follow-up with his PCP for insulin dose adjustments. Incidentally, he was found to have a right pulmonary nodule and microscopic hematuria. He was advised that both of these findings have the possibility to represent malignancy. For the pulmonary nodule, he was advised to schedule a CT scan with his PCP in 3 months. For the microscopic hematuria, he was advised to follow-up with his PCP for further evaluation +/- a Urology referral. General Surgery was consulted for retained rob in his residual limb. He was evaluated by Dr. Juarez, who recommended that he return to his clinic in 1 week to have the rob removed at that time. On 11/01/2022, he was seen on morning rounds and deemed medically stable for discharge. He was discharged with instructions to schedule follow-up appointments with his PCP (Dr. Velez), General Surgery ((Dr. Juarez), and with Nephrology (Dr. Angel). He was provided prescriptions for furosemide, potassium chloride, insulin lispro, and losartan. He was given the opportunity to ask questions and reported no further questions. Furthermore, all questions were answered to the best of my ability. A copy of this discharge summary will be sent to the above providers to facilitate continuity of care. Today, I personally spent 25 minutes on his case, of which greater than 50% of the time was spent in patient education, counseling, and coordination of care as described above. - Physical Exam General: Alert, In no apparent distress, Oriented x3 HEENT: Atraumatic, Sclerae nonicteric Neck: JVD not distended Respiratory: Diminished, clear to auscultation bilaterally without wheezes, rhonchi, or rales Cardiovascular: Regular rate/rhythm, No murmurs, Edema (1+ LLE) Gastrointestinal: Normal bowel sounds, Soft and benign, No tenderness, not distended Musculoskeletal: No clubbing, Other (S/P right BKA) Integumentary: No rashes Neurological: Normal speech, Normal affect Vital Signs/Physical Exam: Temp Pulse Resp BP Pulse Ox 98.5 F 79 17 158/75 H 96 11/01/22 04:00 11/01/22 04:00 11/01/22 04:00 11/01/22 04:00 11/01/22 04:00 Laboratory Data at Discharge: WBC 7.30 thou/uL (4.3-10.9) 10/31/22 03:11 Hgb 7.8 g/dL (13.6-17.9) L 11/01/22 02:54 Hct 23.0 % (39.6-49.0) L 11/01/22 02:54 Plt Count 237 thou/uL (152-406) 10/31/22 03:11 PT 11.5 SECONDS (9.5-12.5) 10/25/22 15:28 INR 1.05 10/25/22 15:28 Sodium 136 mEq/L (136-145) 11/01/22 02:54 Potassium 4.1 mEq/L (3.5-5.1) 11/01/22 02:54 BUN 25 mg/dL (7-18) H 11/01/22 02:54 Creatinine 1.34 mg/dL (0.70-1.30) H 11/01/22 02:54 Glucose 181 mg/dL (74-106) H 11/01/22 02:54 Phosphorus 4.0 mg/dL (2.5-4.9) 10/26/22 04:22 Magnesium 1.9 mg/dL (1.6-2.4) 11/01/22 02:54 Total Bilirubin 0.3 mg/dL (0.2-1.0) 10/30/22 03:04 AST 21 U/L (15-37) 10/30/22 03:04 ALT 44 U/L (16-61) 10/30/22 03:04 Alkaline Phosphatase 180 U/L (45-117) H 10/30/22 03:04 Triglycerides 111 mg/dL (<150) 10/26/22 04:22 Cholesterol 140 mg/dL (<200) 10/26/22 04:22 HDL Cholesterol 46 mg/dL (40-60) 10/26/22 04:22 Cholesterol/HDL Ratio 3.04 10/26/22 04:22 Home Medications: Amitriptyline [Elavil*] 25 mg PO BEDTIME 10/25/22 Gabapentin 100 mg PO TID 10/25/22 Hydralazine HCl 100 mg PO Q8H 10/25/22 Labetalol HCl [Trandate] 200 mg PO TID 10/25/22 Zinc Oxide 1 appl TP DAILY 10/25/22 cloNIDine HCL [Clonidine HCl] 0.1 mg PO BID 10/25/22 Furosemide See Rx Instructions .ROUTE .COMPLEX #90 tab 11/01/22 Insulin Lispro [Admelog Solostar] 2 unit SQ TIDWM #100 unit 11/01/22 Losartan Potassium [Cozaar*] 50 mg PO DAILY #30 tab 11/01/22 Potassium Chloride 10 meq PO DAILY #30 tab 11/01/22 New Medications: Insulin Lispro [Admelog Solostar] 2 unit SQ TIDWM #100 unit Losartan Potassium [Cozaar*] 50 mg PO DAILY #30 tab Furosemide See Rx Instructions .ROUTE .COMPLEX #90 tab Potassium Chloride 10 meq PO DAILY #30 tab Physician Discharge Instructions: 1. Please call and schedule a follow-up appointment with your PCP (Dr. Velez) in 3-5 days There was a spot located on your right lung. We need to exclude cancer as a possibility. Please schedule follow-up imaging with your PCP in about 3 months to make sure that it is not growing. On your urine study, there was a small amount of blood. Although there can be several causes for this, we must exclude a bladder/kidney cancer. Please follow-up with your PCP Your blood counts were low, suggesting that you have anemia. Please schedule follow-up appointment with your PCP. - Please monitor your sugar levels at home and keep a journal. Please bring to your PCP appointment so your insulin dose can be adjusted 2. Please call and schedule a follow-up appointment with Nephrology (Dr. Angel) in 5-7 days There are currently several of your urine studies that have not resulted yet. Please review results with Dr. Angel at this visit. Diet: Low sodium Activity: Fall precautions Followup: Deana Velez MD [Primary Care Provider] - Alejandro Angel [ACTIVE - CAN ADMIT] - Time spent managing pt's care (in minutes): 25
[2022-11-01 12:39] VITALS: BP 159/74; TEMP 98.5
--- NOTE | 2022-11-01 13:08 | P.CNS ---
Date of Consult: 11/01/22 PC: I was asked to see this 57-year-old male in regards to the care of his right BKA stump. HPC: Patient apparently had a right BKA done at another facility over [place] miles away. He has been able to keep his appointments. He was in for other issues and I was asked to review the stump and see whether the rob could be removed. PSHx: Amputation as described PMHx: Kidney failure Social Hx: No known allergies Sys R: Patient feels much better today, apparently was admitted for medical issues O/E: Vital signs are stable HEENT: Negative Chest: Chest movement equal bilaterally Abd: NAD Star: His right BKA suture line looks good. There is a space of approximately 1.5 cm that is starting to open a little bit. There is also a marginal area measuring about a half a centimeter that shows questionable skin viability. The wound however is healed very well, this suture line is clear. Impression: Patient is doing well status post BKA Plan: I removed selective rob along the staple line. These areas had obviously healed. There are still some areas that require external support. The patient has excellent movement however of his knee is able to lock it out, good flexion. He I emphasized and explained to him again how to wrap his leg. He is more than welcome to see me in the wound care center for follow-up if need be. Otherwise he can obtain his care through his primary care physician. Recommend stable stay in for at least another week, and then reevaluation about removal of the remainder.
== END 2022-11-01 14:40 | disposition home health service (06) | DRG 948 ==
LOC: ER 13:19 → ERHOLD 18:44 → 2ND 20:03 → OBSVTOIN 10-28 08:52
PROVIDERS: ADMIT Internal Medicine Nephrology; ATTEND Internal Medicine
PROC: 30233N1 Transfusion of Nonautologous Red Blood Cells into Peripheral Vein, Percutaneous Approach (ICD-10-PCS; principal; 2022-10-30)
DX: R60.1 Generalized edema (principal); N17.9 Acute kidney failure, unspecified; E88.09 Other disorders of plasma-protein metabolism, not elsewhere classified; E78.5 Hyperlipidemia, unspecified; D50.9 Iron deficiency anemia, unspecified; E11.22 Type 2 diabetes mellitus with diabetic chronic kidney disease; I12.9 Hypertensive chronic kidney disease with stage 1 through stage 4 chronic kidney disease, or unspecified chronic kidney disease; N18.31 Chronic kidney disease, stage 3a; E11.649 Type 2 diabetes mellitus with hypoglycemia without coma; R31.29 Other microscopic hematuria; R91.1 Solitary pulmonary nodule; D63.1 Anemia in chronic kidney disease; Z89.511 Acquired absence of right leg below knee
CPT/HCPCS: 36415; 36430; 71045; 71250; 74176; 80048; 80053; 80061; 80076; 81001; 82607; 82728; 82947; 83036; 83540; 83735; 83880; 84100; 84166; 84443; 84466; 84484; 85014; 85018; 85025; 85610; 86850; 86900; 86901; 86920; 87070; 87077; 87086; 87088; 87186; 87205; 93005; 93306; 96374; 97110; 97116; 97161; 97542; 99285; G0378; J1650; J1815; J1940; J7050; P9016; P9047

== ENCOUNTER → 2023-05-20 | Emergency (ER) | payer OTHER ==
--- OUTSIDE RECORDS SUMMARY | 2023-05-20 11:51 | XMS REPORT | Continuity of Care Document ---
Author Name Unknown Address [address] [facility]. [address] th[address] Address 1200 [facility] Carlos A. 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 Name Role Phone CEZAR LE Attending Clinician Unavailable LAKESHIA ERNST Attending Clinician Unavailable DEANA ONTIVEROS Attending Clinician UnaLYNDSEY Silveira Attending Clinician Unavailable LAB90 Attending Clinician Unavailable LIANA STEPHENS Attending Clinician Unavailable NUBIA FREEMAN Attending Clinician UnavailEVELIO Zamarripa Attending Clinician Unavailable JONATHAN ACEVEDO Attending Clinician Unavailable MARLENE BRAN Attending Clinician Unavailable Payers Payer Name Policy Type Policy Number Effective Date Expirati on Date Source ANA MARÍA VERA [facility]: [facility] [address] 9 [id number] 2022 00:00:00 Problems Condition Name Condition Details Condition Category Status Onset Date Resolution Date Last Treatment Date Treating Clinician Comments Source Well adult exam Well adult exam Disease Active 2022-05 00:00: 00 Nikia castro History of right below knee amputation (multi HCC) History of right below knee amputation (multi HCC) Disease Active 2022-05 00:00: 00 Nikia castro DM (diabetes mellitus) (multi HCC) DM (diabetes mellitus) (multi HCC) Disease Active 2022-05 00:00: 00 Nikia castro HTN (hypertens ion) HTN (hypertens ion) Disease Active 02-17 00:00: 00 Nikia castro Diabetes (multi HCC) Diabetes (multi HCC) Disease Active 02-17 00:00: 00 Nikia Liang - Externa l Anemia of chronic disease Anemia of chronic disease Disease Active 02-17 00:00: 00 Nikia Liang - Externa l Subclinica l hypothyroi dism Subclinica l hypothyroi dism Disease Active 02-17 00:00: 00 Nikia Heltona gloria Elevated liver function tests Elevated liver function tests Disease Active 02-17 00:00: 00 Nikia Liang - Externa l Social History Social Habit Start Date Stop Date Quantity Comments Source Gender identity Genesis Liang - External Sexual orientation Adonis Liang - External History of tobacco use Cigarette Smoker Nikia rivera - External Alcohol intake 2023-03-20 00:00:00 2023-03-20 00:00:00 Ex-drinker (finding) Nikia Liang - External History of Social function 2023-02-09 00:00:00 2023-02-09 00:00:00 Nikia Liang - External Tobacco use and exposure 2022-10-16 00:00:00 2022-10-16 00:00:00 Smokeless tobacco non-user Nikia Liang - External Sex Ass[birth year] At 1965 00:00:00 1965 00:00:00 Nikia Liang - External Smoking Status Start Date Stop Date Source Ex-smoker 2022-10-16 00:00:00 2022-10-16 00:00:00 Adonis Liang - External Medications Ordered Medication Name Filled Medication Name Start Date Stop Date Current Medication? Ordering Clinician Indication Dosage Frequency Signature (SIG) Comments Components Source Insulin Glargine (Lantus SoloStar) 100 UNIT/ML subcutaneou s Solution Pen-injecto r 2022-05 00:00: 00 Yes [id number] 15U Inject 15 units into the skin at bedtime. Nikia castro Potassium Chloride CR 10 MEQ oral Cap CR 2022-05 00:00: 00 03-20 00:00 :00 No Nikia castro Insulin Aspart (NovoLOG FlexPen) 100 UNIT/ML subcutaneou s Solution Pen-injecto r 2022-05 00:00: 00 Yes [id number] 10 units sc three times a day with every meal. Hold If blood sugar is less than 100. Nikia castro Insulin Aspart (NovoLOG FlexPen) 100 UNIT/ML subcutaneou s Solution Pen-injecto r 2022-05 018 00:00: 00 Yes [id number] 10 units sc three times a day with every meal. Hold If blood sugar is less than 100. Nikia Lopez l Gabapentin 100 MG oral Capsule 02-18 00:00: 00 Yes [id number] 100mg Take 1 capsule (100 mg total) by mouth 3 times daily. Nikia Lopez l Furosemide (LASIX) 20 MG oral Tablet 02-18 00:00: 00 Yes 20mg Take 1 tablet (20 mg total) by mouth 2 times daily. Nikia Lopez l Labetalol HCl 200 MG oral Tablet 02-18 00:00: 00 Yes 200mg Take 1 tablet (200 mg total) by mouth 3 times daily. Nikia Heltona gloria Insulin Glargine (Lantus SoloStar) 100 UNIT/ML subcutaneou s Solution Pen-injecto r 02-18 00:00: 00 Yes [id number] 23U Inject 23 units into the skin at bedtime. Nikia castro Gabapentin 100 MG oral Capsule 02-18 00:00: 00 Yes [id number] 100mg Take 1 capsule (100 mg total) by mouth 3 times daily. Nikia Lopez l Labetalol HCl 200 MG oral Tablet 02-18 00:00: 00 Yes 200mg Take 1 tablet (200 mg total) by mouth 3 times daily. Nikia Lopez l Furosemide (LASIX) 20 MG oral Tablet 02-18 00:00: 00 03-20 00:00 :00 No 20mg Take 1 tablet (20 mg total) by mouth 2 times daily. Nikia Heltona l Insulin Glargine (Lantus SoloStar) 100 UNIT/ML subcutaneou s Solution Pen-injecto r 02-18 00:00: 00 03-20 00:00 :00 No [id number] 23U Inject 23 units into the skin at bedtime. Nikia castro Losartan Potassium (COZAAR) 50 MG oral Tablet 02-17 00:00: 00 Yes 50mg Take 1 tablet (50 mg total) by mouth daily. Nikia castro Mupirocin (BACTROBAN) 2 % apply externally Ointment 02-17 00:00: 00 Yes [id number] Apply 1 applicatio n. topically 2 times daily. Nikia castro Losartan Potassium (COZAAR) 50 MG oral Tablet 02-17 00:00: 00 Yes 50mg Take 1 tablet (50 mg total) by mouth daily. Nikia castro Mupirocin (BACTROBAN) 2 % apply externally Ointment 02-17 00:00: 00 Yes [id number] Apply 1 applicatio n. topically 2 times daily. Nikia castro Amoxicillin -Pot Clavulanate 500-125 MG oral Tablet 10-21 00:00: 00 Yes [id number] 1{tbl} Take 1 tablet by mouth 2 times daily Nikia castro Clonidine HCl (CATAPRES) 0.1 MG oral Tablet 10-17 00:00: 00 Yes [id number] .1mg Take 1 tablet (0.1 mg total) by mouth 2 times daily Nikia castro hydrALAZINE HCl 100 MG oral Tablet 10-17 00:00: 00 Yes [id number] 100mg Take 1 tablet (100 mg total) by mouth 3 times daily Nikia castro Furosemide (LASIX) 20 MG oral Tablet 10-17 00:00: 00 Yes [id number] 20mg Take 1 tablet (20 mg total) by mouth daily Nikia castro Amitriptyli ne HCl 25 MG oral Tablet 10-17 00:00: 00 Yes [id number] 25mg Take 1 tablet (25 mg total) by mouth at bedtime Nikia castro Sodium Bicarbonate 650 MG oral Tablet 10-17 00:00: 00 Yes [id number] 650mg Take 1 tablet (650 mg total) by mouth 2 times daily Nikia castro Gabapentin 100 MG oral Capsule 10-17 00:00: 00 Yes [id number] 100mg Take 1 capsule (100 mg total) by mouth every 8 hours Nikia castro Clonidine HCl (CATAPRES) 0.1 MG oral Tablet 10-17 00:00: 00 Yes [id number] .1mg Take 1 tablet (0.1 mg total) by mouth 2 times daily Nikia castro hydrALAZINE HCl 100 MG oral Tablet 10-17 00:00: 00 Yes [id number] 100mg Take 1 tablet (100 mg total) by mouth 3 times daily Nikia castro Furosemide (LASIX) 20 MG oral Tablet 10-17 00:00: 00 Yes [id number] 20mg Take 1 tablet (20 mg total) by mouth daily Nikia castro Amitriptyli ne HCl 25 MG oral Tablet 10-17 00:00: 00 Yes [id number] 25mg Take 1 tablet (25 mg total) by mouth at bedtime Nikia castro Clonidine HCl (CATAPRES) 0.1 MG oral Tablet 10-17 00:00: 00 Yes [id number] .1mg Take 1 tablet (0.1 mg total) by mouth 2 times daily Nikia castro hydrALAZINE HCl 100 MG oral Tablet 10-17 00:00: 00 Yes [id number] 100mg Take 1 tablet (100 mg total) by mouth 3 times daily Nikia castro Amitriptyli ne HCl 25 MG oral Tablet 10-17 00:00: 00 Yes [id number] 25mg Take 1 tablet (25 mg total) by mouth at bedtime Nikia castro Clonidine HCl (CATAPRES) 0.1 MG oral Tablet 10-17 00:00: 00 Yes [id number] .1mg Take 1 tablet (0.1 mg total) by mouth 2 times daily Nikia castro hydrALAZINE HCl 100 MG oral Tablet 10-17 00:00: 00 Yes [id number] 100mg Take 1 tablet (100 mg total) by mouth 3 times daily Nikia castro Amitriptyli ne HCl 25 MG oral Tablet 10-17 00:00: 00 Yes [id number] 25mg Take 1 tablet (25 mg total) by mouth at bedtime Nikia castro Sodium Bicarbonate 650 MG oral Tablet 10-17 00:00: 00 Yes [id number] 650mg Take 1 tablet (650 mg total) by mouth 2 times daily Nikia castro Gabapentin 100 MG oral Capsule 10-17 00:00: 00 Yes [id number] 100mg Take 1 capsule (100 mg total) by mouth every 8 hours Nikia castro Labetalol HCl 200 MG oral Tablet 10-15 00:00: 00 Yes Nikia castro Labetalol HCl 200 MG oral Tablet 10-15 00:00: 00 Yes Nikia castro Gabapentin 100 MG oral Capsule 10-08 00:00: 00 10-17 00:00 :00 No 100mg Take 1 capsule (100 mg total) by mouth every 8 hours Nikia castro hydrALAZINE HCl 100 MG oral Tablet 09-27 00:00: 00 10-17 00:00 :00 No 100mg Take 1 tablet (100 mg total) by mouth daily Nikia castro Insulin Lispro, 1 Unit Dial, 100 UNIT/ML subcutaneou s Solution Pen-injecto r 09-25 00:00: 00 Yes INJECT 10 UNITS SUBCUTANEO USLY WITH EACH MEAL DIRECTED Nikia castro Insulin Lispro, 1 Unit Dial, 100 UNIT/ML subcutaneou s Solution Pen-injecto r 09-25 00:00: 00 Yes INJECT 10 UNITS SUBCUTANEO USLY WITH EACH MEAL DIRECTED Nikia castro predniSONE (DELTASONE) 10 MG oral tablet 09-24 00:00: 00 Yes 10mg Take 1 tablet (10 mg total) by mouth See Admin Instructio ns PLEASE SEE ATTACHED FOR DETAILED DIRECTIONS Nikia castro predniSONE (DELTASONE) 10 MG oral tablet 09-24 00:00: 00 Yes 10mg Take 1 tablet (10 mg total) by mouth See Admin Instructio ns PLEASE SEE ATTACHED FOR DETAILED DIRECTIONS Nikia castro Clonidine HCl (CATAPRES) 0.1 MG oral Tablet 09-24 00:00: 00 10-17 00:00 :00 No .1mg Take 1 tablet (0.1 mg total) by mouth 2 times daily Nikia castro Furosemide (LASIX) 20 MG oral Tablet 09-24 00:00: 00 10-17 00:00 :00 No 20mg Take 1 tablet (20 mg total) by mouth daily Nikia castro Amitriptyli ne HCl 25 MG oral Tablet 09-23 00:00: 00 10-17 00:00 :00 No 25mg Take 1 tablet (25 mg total) by mouth at bedtime Nikia castro Sodium Bicarbonate 650 MG oral Tablet 09-23 00:00: 00 10-17 00:00 :00 No 650mg Take 1 tablet (650 mg total) by mouth 2 times daily Nikia castro oxyCODONE-A cetaminophe n 10-325 MG oral Tablet 09-18 00:00: 00 Yes TAKE 1 TABLET BY MOUTH EVERY SIX HOURS NEEDED FOR PAIN (MAX 4/DAY) Nikia castro oxyCODONE-A cetaminophe n 10-325 MG oral Tablet 09-18 00:00: 00 Yes TAKE 1 TABLET BY MOUTH EVERY SIX HOURS NEEDED FOR PAIN (MAX 4/DAY) Nikia castro Vital Signs Vital Name Observation Time Observation Value Comments S reina Systolic blood pressure 2023-03-20 15:31:00 144 mm[Hg] Nikia Haley Diastolic blood pressure 2023-03-20 15:31:00 86 mm[Hg] Nikia Seybold - External Heart rate 2023-03-20 15:31:00 92 /min Nikia Seybold - External Body temperature 2023-03-20 15:31:00 36.61 Josey Nikia Seybold - External Respiratory rate 2023-03-20 15:31:00 15 /min Nikia Seybold - External Body height 2023-03-20 15:31:00 167.6 cm Nikia Seybold - External Body weight 2023-03-20 15:31:00 72.576 kg Nikia Seybold - External BMI 2023-03-20 15:31:00 25.82 kg/m2 Nikia Seybold - External Oxygen saturation in Arterial blood by Pulse oximetry 2023-03-20 15:31:00 99 /min Nikia Seybold - External Systolic blood pressure 2023-03-11 15:40:00 148 mm[Hg] Nikia Seybold - External Diastolic blood pressure 2023-03-11 15:40:00 87 mm[Hg] Nikia Seybold - External Heart rate 2023-03-11 15:40:00 88 /min Nikia Seybold - External Body temperature 2023-03-11 14:29:00 36.44 Josey Nikia Seybold - External Respiratory rate 2023-03-11 14:29:00 16 /min Nikia Seybold - External Systolic blood pressure 2022-10-24 21:33:00 163 mm[Hg] Nikia Seybold - External Diastolic blood pressure 2022-10-24 21:33:00 76 mm[Hg] Nikia Seybold - External Heart rate 2022-10-24 21:33:00 86 /min Nikia Seybold - External Body temperature 2022-10-24 21:33:00 36.89 Josey Nikia Seybold - External Respiratory rate 2022-10-24 21:33:00 19 /min Nikia Seybold - External Body height 2022-10-24 21:33:00 167.6 cm Nikia Seybold - External Body weight 2022-10-24 21:33:00 72.576 kg Nikia Seybold - External BMI 2022-10-24 21:33:00 25.82 kg/m2 Nikia Liang - External Oxygen saturation in Arterial blood by Pulse oximetry 2022-10-24 21:33:00 99 /min Nikia Liang - External Systolic blood pressure 2022-10-17 13:01:00 135 mm[Hg] Nikia Woodybold - External Diastolic blood pressure 2022-10-17 13:01:00 89 mm[Hg] Nikia Liang - External Heart rate 2022-10-17 13:01:00 87 /min Nikianorma Liang - External Body temperature 2022-10-17 13:01:00 36.61 Josey Nikia Liang - External Respiratory rate 2022-10-17 13:01:00 16 /min Nikia Liang - External Body height 2022-10-17 13:01:00 167.6 cm pt is in a wheel chair Nikia Liang - External Body weight 2022-10-17 13:01:00 72.576 kg Nikia Liang - External BMI 2022-10-17 13:01:00 25.82 kg/m2 Nikia Liang - External Oxygen saturation in Arterial blood by Pulse oximetry 2022-10-17 13:01:00 97 /min Nikia Liang - External Procedures Procedure Date / Time Performed Performing Clinic[facility] n [facility] 14:40:00 Deana Ontiveros charimiguel - External Encounters Start Date/Time End Date/Time Encounter Type Admission Type Attending [facility] Care Department Encounter ID Source 2023-06-08 08:30:00 2023-06-08 08:30:00 Outpatient CEZAR LE [id number] Nikia Liang 2023-05-06 08:30:00 2023-05-06 08:30:00 Outpatient CEZAR LE [id number] Nikai Liang 2023-04-27 08:15:00 2023-04-27 08:15:00 Outpatient LAKESHIA ERNST [id number] Nikia Liang 2023-04-21 00:00:00 2023-04-21 00:00:00 Out[facility]NST [id number] [facility]23-04-20 00:00:00 2023-04-20 00:00:00 Outpatient PREZAS, LAKESHIA NIKIA HARRINGTON [id number] Nikia Seybold 2023-04-19 00:00:00 2023-04-19 00:00:00 Outpatient RAMA, DEANA NIKIA HARRINGTON [id number] Nikia Seybold 2023-04-10 00:00:00 2023-04-10 00:00:00 Outpatient RAMA, DEANA NIKIA HARRINGTON [id number] Nikia Seybold 2023-04-09 00:00:00 2023-04-09 00:00:00 Outpatient RAMA, DEANASTEPHANIE [facility]ARR[facility] [id number] [facility] 2023-04-06 09:15:00 2023-04-06 09:15:00 Outpatient AKINADE, CEZARFRANCISCO HARRINGTON [id number] [facility] 2023-03-20 10:45:00 2023-03-20 10:45:00 Outpatient PREZAS, LAKESHIA [facility]IA [facility]ARR[facility] [id number] [facility] 2023-03-11 09:00:00 2023-03-11 09:00:00 Outpatient AKINADE, CEZARFRANCISCO HARRINGTON [id number] [facility] 2023-03-11 00:00:00 2023-03-11 00:00:00 Outpatient PREZAS, LAKESHIA HARRINGTON [id number] [facility] 2023-03-10 00:00:00 2023-03-10 00:00:00 Outpatient PREZAS, LAKESHIA HARRINGTON [id number] Nikia Seybold 2023-03-09 10:45:00 2023-03-09 10:45:00 Outpatient PREZAS, LAKESHIA HARRINGTON [id number] Nikia Seybold 2023-02-27 00:00:00 2023-02-27 00:00:00 Outpatient PREZAS, LAKESHIA HARRINGTON [id number] Nikia Seybold 2023-02-26 08:15:00 2023-02-26 08:15:00 Outpatient PREZAS, LAKESHIA HARRINGTON [id number] Nikia [facility] 2023-02-23 10:15:00 2023-02-23 10:15:00 Outpatient LYNDSEY NOVAK NIKIA HARRINGTON [id number] Nikia [facility] 2023-02-19 00:00:00 2023-02-19 00:00:00 Outpatient PREZAS, LAKESHIA NIKIA HARRINGTON [id number] Nikia [facility] 2023-02-18 00:00:00 2023-02-18 00:00:00 Outpatient PREZAS, LAKESHIA NIKIA HARRINGTON [id number] Nikia [facility] 2023-02-18 00:00:00 2023-02-18 00:00:00 Outpatient PREZAS, LAKESHIA NIKIA HARRINGTON [id number] Nikia [facility] 2023-02-18 00:00:00 2023-02-18 00:00:00 Outpatient PREZAS, LAKESHIA [facility] [id number] [facility] 09:35:00 2023-02-17 09:35:00 Outpatient LESLIE NIKIA HARRINGTON [id number] [facility] 2023-02-17 08:45:00 2023-02-17 08:45:00 Outpatient PREZAS, LAKESHIA NIKIA HARRINGTON [id number] [facility] 2023-02-15 00:00:00 2023-02-15 00:00:00 Outpatient DE[facility]IVEROS [id number] [facility] 2023-01-23 09:20:00 2023-01-23 09:20:00 Outpatient KATMATHIEULIANA NIKIA HARRINGTON [id number] [facility] 2023-01-21 00:00:00 2023-01-21 00:00:00 Outpatient [facility]ADEANA SHAW [id number] [facility] 2023-01-20 13:30:00 2023-01-20 13:30:00 Outpatient PREZAS, LAKESHIAKANA HARRINGTON [id number] [facility] 2022-12-26 00:00:00 2022-12-26 00:00:00 Out[facility]IVER[facility] [id number] [facility] 2022-12-25 15:30:00 2022-12-25 15:30:00 Outpatient NUBIA FREEMAN NIKIA HARRINGTON [id number] Nikia [facility] 2022-12-23 00:00:00 2022-12-23 00:00:00 Outpatient LAKESHIA ERNST NIKIA [facility]ARR[facility] [id number] [facility] 2022-12-23 00:00:00 2022-12-23 00:00:00 Outpatient DEANA ONTIVEROS [id number] [facility] 2022-12-01 00:00:00 2022-12-01 00:00:00 Outpatient DEANA ONTIVEROS [id number] Nikia [facility] 2022-11-28 11:30:00 2022-11-28 11:30:00 Outpatient LAKESHIA ERNST NIKIA HARRINGTON [id number] [facility] 2022-11-20 14:10:00 2022-11-20 14:10:00 Outpatient OMAREVELIO NIKIA HARRINGTON [id number] [facility] 2022-11-19 00:00:00 2022-11-19 00:00:00 Outpatient DEANA ONTIVEROS [id number] [facility] 2022-11-18 15:00:00 2022-11-18 15:00:00 Outpatient KRISTINAJONATHAN TRIMBLE [id number] [facility] 2022-11-18 00:00:00 2022-11-18 00:00:00 Outpatient KRISTINAJONATHAN TRIMBLE [id number] [facility] 2022-11-04 00:00:00 2022-11-04 00:00:00 Outpatient [facility]LENE BRAN [id number] [facility] 2022-10-27 00:00:00 2022-10-27 00:00:00 Outpatient DEANA ONTIVEROS [id number] [facility] 2022-10-24 16:30:00 2022-10-24 16:30:00 Outpatient DEANA ONTIVEROS [id number] [facility] 2022-10-21 00:00:00 2022-10-21 00:00:00 Outpatient DEANA ONTIVEROS [id number] Nikia Liang 2022-10-21 00:00:00 2022-10-21 00:00:00 Outpatient DEANA ONTIVEROS [id number] Nikia Liang 2022-10-17 09:20:00 2022-10-17 09:20:00 Outpatient [facility] NIKIA HARRINGTON [id number] Nikia Liang 2022-10-17 08:00:00 2022-10-17 08:00:00 Outpatient DEANA ONTIVEROS [id number] Nikia Liang 2022-10-17 00:00:00 2022-10-17 00:00:00 Outpatient DEANA ONTIVEROS [id number] Nikia Liang
--- NOTE | 2023-05-20 12:34 | ER ---
Nurse's Notes [facility] Name: Delroy Quintero Age: 57 yrs Sex: Male : 1965 Arrival Date: 05/20/2023 Time: 11:47 Bed 19 Private MD: Diagnosis: Cellulitis of right lower limb;Wound Dehiscence Presentation: 05/20 12:02 Chief complaint: Has been seeing Dr. Juarez in wound care clinic for chronic wound on hb right BKA, concerned it is infected. Coronavirus screen: At this time, the client does not indicate any symptoms associated with coronavirus-19. Ebola Screen: No symptoms or risks identified at this time. Initial Sepsis Screen: Does the patient meet any 2 criteria? No. Patient's initial sepsis screen is negative. Does the patient have a suspected source of infection? No. Patient's initial sepsis screen is negative. Risk Assessment: Do you want to hurt yourself or someone else? Patient reports no desire to harm self or others. Onset of symptoms was May 20, 2023. 12:02 Method Of Arrival: Wheelchair hb 12:02 Acuity: GUS 3 hb Historical: - Allergies: 12:04 No Known Allergies; hb - PMHx: 12:04 ERIKA; Anemia; diabetes mellitus; Hypertensive disorder; hb - PSHx: 12:04 R BKA; hb - Immunization history:: Adult Immunizations up to date. - Social history:: Smoking status: Patient denies any tobacco usage or history of. Screenin:17 [facility] ED Fall Risk Assessment (Adult) History of falling in the last 3 months, kc6 including since admission No falls in past 3 months (0 pts) Confusion or Disorientation No (0 pts) Intoxicated or Sedated No (0 pts) Impaired Gait No (0 pts) Mobility Assist Device Used No (0 pt) Altered Elimination No (0 pt) Score/Fall Risk Level 0 - 2 = Low Risk. Abuse screen: Denies threats or abuse. Denies injuries from another. Nutritional screening: No deficits noted. Tuberculosis screening: No symptoms or risk factors identified. Assessment: 12:55 General: Appears in no apparent distress. comfortable, Behavior is calm, cooperative, kc6 appropriate for age. Pain: Denies pain. Neuro: Level of Consciousness is awake, alert, obeys commands, Oriented to person, place, time, situation, Appropriate for age. Cardiovascular: Capillary refill < 3 seconds. Respiratory: Airway is patent Trachea midline Respiratory effort is even, unlabored, Respiratory pattern is regular, symmetrical. GI: No signs and/or symptoms were reported involving the gastrointestinal system. : No signs and/or symptoms were reported regarding the genitourinary system. EENT: No signs and/or symptoms were reported regarding the EENT system. Derm: Skin is pink, warm \T\ dry. Wound noted right leg. Musculoskeletal: No signs and/or symptoms reported regarding the musculoskeletal system. Capillary refill < 3 seconds. Vital Signs: 12:02 BP 118 / 65; Pulse 96; Resp 18; Temp 97.4(TE); Pulse Ox 100% on R/A; Weight 77.11 kg; hb Height 5 ft. 6 in. ; Pain 0/10; 12:02 Body Mass Index 27.44 (77.11 kg, 167.64 cm) hb 12:02 Pain Scale: Adult hb ED Course: 11:51 Patient arrived in ED. mg5 11:56 Cezar Sheppard MD is Attending Physician. ec2 12:04 Triage completed. hb 12:04 Arm band placed on. hb 12:06 Tahira Murcia, RN is Primary Nurse. kc6 12:17 Patient maintains SpO2 saturation greater than 95% on room air. kc6 12:18 Patient has correct armband on for positive identification. Bed in low position. Call kc6 light in reach. Side rails up X 1. Adult w/ patient. Client placed on continuous cardiac and pulse oximetry monitoring. NIBP monitoring applied. 12:34 Guero Juarez MD is Referral Physician. ec2 12:56 No provider procedures requiring assistance completed. Patient did not have IV access kc6 during this emergency room visit. Administered Medications: No medications were administered Medication: 12:57 VIS not applicable for this client. kc6 Outcome: 12:34 Discharge ordered by . ec2 12:56 Discharged to home via wheelchair, with significant other, kc6 12:56 Condition: good 12:56 Discharge instructions given to patient, Instructed on discharge instructions, follow up and referral plans. medication usage, wound care, Demonstrated understanding of instructions, follow-up care, medications, wound care, Prescriptions given X 1, 12:57 Patient left the ED. kc6 Signatures: Suki Ga RN RN Tahira Sanders RN RN kc6 Tiff Lentz mg5 Cezar Sheppard MD MD ec2
--- NOTE | 2023-05-20 12:34 | EDPHYS ---
Physician Documentation [facility] Name: Delroy Quintero Age: 57 yrs Sex: Male : 1965 Arrival Date: 05/20/2023 Time: 11:47 Bed 19 Private MD: ED Physician Cezar Sheppard HPI: 05/20 12:31 This 57 yrs old Male presents to ER via Wheelchair with complaints of Wound ec2 Check. 12:31 Patient arrives today for evaluation of his right stump. Patient had a BKA ec2 approximately 7 months ago, states that he had noted the wound coming apart and is having some drainage. Patient reports no fevers or chills, no pain at the area. He expressed concern about infection. He denies any redness to the area.. Historical: - Allergies: 12:04 No Known Allergies; hb - PMHx: 12:04 ERIKA; Anemia; diabetes mellitus; Hypertensive disorder; hb - PSHx: 12:04 R BKA; hb - Immunization history:: Adult Immunizations up to date. - Social history:: Smoking status: Patient denies any tobacco usage or history of. ROS: 12:31 Constitutional: as per hpi ec2 Exam: 12:31 Constitutional: GEN: NAD Head: atraumatic Eyes: EOMI Ears: External ears are ec2 normal. CV: regular rate LUNGS: no respiratory distress ABD: non-distended SKIN: Right stump with some wound dehiscence on the medial aspect of the stump, scant amount of serous drainage noted, no erythema, no warmth, no crepitus, no TTP. MSK: no evidence of trauma NEURO: moves all extremities equally Vital Signs: 12:02 BP 118 / 65; Pulse 96; Resp 18; Temp 97.4(TE); Pulse Ox 100% on R/A; Weight 77.11 kg; hb Height 5 ft. 6 in. ; Pain 0/10; 12:02 Body Mass Index 27.44 (77.11 kg, 167.64 cm) hb 12:02 Pain Scale: Adult hb MDM: 12:31 Data reviewed: vital signs. ED course: Patient arrives to have his right stump ec2 evaluated. Examination remarkable for skin findings noted above. Will start patient on antibiotics and have follow-up with his surgeon. Clinically does not appear like a significant infection given lack of erythema, no significant purulent discharge that I can appreciate, no tenderness to palpation, I have a low suspicion for osteomyelitis as well given the lack of systemic symptoms. Will discharge home and have follow-up with the surgeon. Return precautions given.. 12:34 Patient medically screened. ec2 Administered Medications: No medications were administered Disposition Summary: 05/20/23 12:34 Discharge Ordered Notes: Location: Home ec2 Condition: Stable ec2 Diagnosis - Cellulitis of right lower limb ec2 - Wound Dehiscence ec2 Followup: ec2 - With: Guero Juarez MD - When: - Reason: Continuance of care Discharge Instructions: - Discharge Summary Sheet ec2 - Cellulitis, Adult ec2 Forms: - Medication Reconciliation Form ec2 - Thank You Letter ec2 - Antibiotic Education ec2 - Prescription Opioid Use ec2 - Patient Portal Instructions ec2 - Leadership Thank You Letter ec2 Prescriptions: - Clindamycin HCl 150 mg Oral capsule - take 3 capsule ORAL route every 8 hours for 10 days; 90 capsule; Refills: 0, ec2 Product Selection Permitted Signatures: Suki Ga, SELENA RN Cezar Sheppard MD MD ec2
[2023-05-20 13:35] VITALS: BP 118/65; TEMP 97.4; O2SAT 100
== END ==
LOC: ER 11:47
DX: T87.81 Dehiscence of amputation stump (principal); L03.115 Cellulitis of right lower limb; Z89.511 Acquired absence of right leg below knee

== ENCOUNTER 2023-09-20 12:28 | Emergency (ER) | payer OTHER ==
--- OUTSIDE RECORDS SUMMARY | 2023-09-20 12:41 | XMS REPORT | Continuity of Care Document ---
Author Name Unknown Address [address] [facility] [address] [place] [address] [facility] thconnect Address [address] [facility] [address] [place] [address] Care Team Providers Care Electrical Power Engineer Name Role Phone LUCRECIA ONTIVEROS Attending Clinician Unava CEZAR Alicia Attending Clinician Unavailable LAKESHIA ERNST Attending Clinician Unavailable LYNDSEY NOVAK Attending Clinician Unavailable LAB90 Attending Clinician Unavailable LIANA STEPHENS Attending Clinician Unavailable NUBIA FREEMAN Attending Clinician UnavailEVELIO Zamarripa Attending Clinician Unavailable JONATHAN ACEVEDO Attending Clinician Unavailable MARLENE BRAN Attending Clinician Unavailable Mj Vences Attending Clinician Unavail able Wilbert Ramires Attending Clinician Unavailable Mj Vences Admitting Clinician Unavail Wilbert Sheth Admitting Clinician Unavailable Payers Payer Name Policy Type Policy Number Effective Date Expirati on Date Source [employer]ET[employer] MP [facility] [employer] 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 ON 9 [id number] 2023 00:00:00 Problems Condition Name Condition Details Condition Category Status Onset Date Resolution Date Last Treatment Date Treating Clinician Comments Source Well adult exam Well adult exam Disease Active 2022-05 00:00: 00 Nikia castro History of right below knee amputation (multi HCC) History of right below knee amputation (multi HCC) Disease Active 2022-05 00:00: 00 Nikia Seybold - Externa l DM (diabetes mellitus) (multi HCC) DM (diabetes mellitus) (multi HCC) Disease Active 2022-05 00:00: 00 Nikia Seybold - Externa l HTN (hypertens ion) HTN (hypertens ion) Disease Active 02-17 00:00: 00 Nikia Seybold - Externa l Diabetes (multi HCC) Diabetes (multi HCC) Disease Active 02-17 00:00: 00 Nikia Seybold - Externa l Anemia of chronic disease Anemia of chronic disease Disease Active 02-17 00:00: 00 Nikia Seybold - Externa l Subclinica l hypothyroi dism Subclinica l hypothyroi dism Disease Active 02-17 00:00: 00 Nikia Changold - Externa l Elevated liver function tests Elevated liver function tests Disease Active 02-17 00:00: 00 Nikia Seybold - Externa l Allergies, Adverse Reactions, Alerts Allergy Name Allergy Type Status Severity Reaction(s) Onset Date Inactive Date Treating Clinician Comments Source No Known Allergie s DA Active U 2010-05 00:00: 00 [facility] Social History Social Habit Start Date Stop [...] Source Ex-smoker 2022-10-16 00:00:00 2022-10-16 00:00:00 Adonis Haley Medications Ordered Medication Name Filled Medication Name Start Date Stop Date Current Medication? Ordering Clinician Indication Dosage Frequency Signature (SIG) Comments Components Source Insulin Glargine (Lantus SoloStar) 100 UNIT/ML subcutaneou s Solution Pen-injecto r 2022-05 00:00: 00 Yes [id number] 15U Inject 15 units into the skin at bedtime. Nikia castro Potassium Chloride CR 10 MEQ oral Cap CR 2022-05 00:00: 00 03-20 00:00 :00 No Nikia castro Insulin Aspart (NovoLOG FlexPen) 100 UNIT/ML subcutaneou s Solution Pen-injecto r 2022-05 00:00: 00 Yes [id number] 10 units sc three times a day with every meal. Hold If blood sugar is less than 100. Nikia castro Gabapentin 100 MG oral Capsule 02-18 00:00: 00 Yes [id number] 100mg Take 1 capsule (100 mg total) by mouth 3 times daily. Nikia castro Labetalol HCl 200 MG oral Tablet 02-18 00:00: 00 Yes 200mg Take 1 tablet (200 mg total) by mouth 3 times daily. Nikia castro Furosemide (LASIX) 20 MG oral Tablet 02-18 00:00: 00 03-20 00:00 :00 No 20mg Take 1 tablet (20 mg total) by mouth 2 times daily. Nikia castro Insulin Glargine (Lantus SoloStar) 100 UNIT/ML subcutaneou s Solution Pen-injecto r 02-18 00:00: 00 03-20 00:00 :00 No [id number] 23U Inject 23 units into the skin at bedtime. Nikia castro Losartan Potassium (COZAAR) 50 MG oral Tablet 02-17 00:00: 00 Yes 50mg Take 1 tablet (50 mg total) by mouth daily. Nikia castro Mupirocin (BACTROBAN) 2 % apply externally Ointment 02-17 00:00: 00 Yes [id number] Apply 1 applicatio n. topically 2 times daily. Nikia castro Amoxicillin -Pot Clavulanate 500-125 MG oral Tablet 10-21 00:00: 00 Yes [id number] 1{tbl} Take 1 tablet by mouth 2 times daily Nikia castro Amitriptyli ne HCl 25 MG oral Tablet 10-17 00:00: 00 Yes [id number] 25mg Take 1 tablet (25 mg total) by mouth at bedtime Nikia castro Clonidine HCl (CATAPRES) 0.1 MG oral Tablet 10-17 00:00: 00 Yes [id number] .1mg Take 1 tablet (0.1 mg total) by mouth 2 times daily Nikia castro hydrALAZINE HCl 100 MG oral Tablet 10-17 00:00: 00 Yes [id number] 100mg Take 1 tablet (100 mg total) by mouth 3 times daily Nikia castro Sodium Bicarbonate 650 MG oral Tablet 10-17 00:00: 00 Yes [id number] 650mg Take 1 tablet (650 mg total) by mouth 2 times daily Nikia castro Gabapentin 100 MG oral Capsule 10-17 00:00: 00 Yes [id number] 100mg Take 1 capsule (100 mg total) by mouth every 8 hours Nikia castro Furosemide (LASIX) 20 MG oral Tablet 10-17 00:00: 00 Yes [id number] 20mg Take 1 tablet (20 mg total) by mouth daily Nikia castro Labetalol HCl 200 MG oral [...] Vital Name Observation Time Observation Value Comments Hal huang Systolic blood pressure 2023-03-20 15:31:00 144 mm[Hg] Nikia Haley Diastolic blood pressure 2023-03-20 15:31:00 86 mm[Hg] Nikia Haley Heart rate 2023-03-20 15:31:00 92 /min Nikia [...] External BMI 2022-10-24 21:33:00 25.82 kg/m2 Nikia Seybold - External Oxygen saturation in Arterial blood by Pulse oximetry 2022-10-24 21:33:00 99 /min Nikia Seybold - External Systolic blood pressure 2022-10-17 13:01:00 135 mm[Hg] Nikia Seybold - External Diastolic blood pressure 2022-10-17 13:01:00 89 mm[Hg] Nikia Seybold - External Heart rate 2022-10-17 13:01:00 87 /min Nikia Seybold - External Body temperature 2022-10-17 13:01:00 36.61 Josey Nkiia Seybold - External Respiratory rate 2022-10-17 13:01:00 16 /min Nikia Seybold - External Body height 2022-10-17 13:01:00 167.6 cm pt is in a wheel chair Nikia Liang - External Body weight 2022-10-17 13:01:00 72.576 kg Nikia Woodybold - External BMI 2022-10-17 13:01:00 25.82 kg/m2 Nikia Seybold - External Oxygen saturation in Arterial blood by Pulse oximetry 2022-10-17 13:01:00 97 /min Niika Seybold - External Procedures Procedure Date / Time Performed Performing Clinicia n Source REFERRAL TO GENERAL [facility]- [facility] 2022-10-17 14:40:00 Lucrecia Ontiveros Nikia Seybold - External [id number] 2022-09-08 00:00:00 SHEILA [facility] [id number] 2022-09-08 00:00:00 KARZE [facility] [id number] 2022-09-03 00:00:00 GIBJE.01 [facility] [id number] 2022-09-03 00:00:00 GIBJE.01 [facility] [id number] 2022-09-03 00:00:00 GIBJE.01 [facility] [id number] 2022-09-03 00:00:00 GIBJE.01 [facility] [id number] 2022-09-03 00:00:00 GIBJE.01 [facility] [id number] 2022-08-28 00:00:00 JUAJE [facility] [id number] 2022-08-26 00:00:00 MANINDERCWHITNEY [facility] [id number] 2022-08-25 00:00:00 STEPHANIE [facility] [id number] 2022-08-19 00:00:00 JHOAN [facility] Encounters Start Date/Time End Date/Time Encounter Type Admission Type Attending [facility] Care Department Encounter ID Source 2023-09-29 15:45:00 2023-09-29 15:45:00 Outpatient LUCRECIA ONTIVEROS [id number] [facility] 2023-06-08 08:30:00 2023-06-08 08:30:00 Outpatient CEZAR LE [id number] [facility] 2023-05-20 00:00:00 2023-05-20 00:00:00 Outpatient LUCRECIA ONTIVEROS [id number] [facility] 2023-05-06 08:30:00 2023-05-06 08:30:00 Outpatient CEZAR LE [id number] [facility] 2023-04-27 08:15:00 2023-04-27 08:15:00 Outpatient LAKESHIA ERNST [id number] [facility] 2023-04-21 00:00:00 2023-04-21 00:00:00 Outpatient LAKESHIA ERNST [id number] [facility] 2023-04-20 00:00:00 2023-04-20 00:00:00 Outpatient PRELAKESHIA KHOURY [id number] [facility] 2023-04-19 00:00:00 2023-04-19 00:00:00 Outpatient LUCRECIA ONTIVEROS [id number] [facility] 2023-04-10 00:00:00 2023-04-10 00:00:00 Outpatient LUCRECIA ONTIVEROS [id number] [facility] 2023-04-09 00:00:2023-04-09 00:00:00 Outpatient RAMALUCRECIA NIKIA [id number] [facility] 2023-04-06 09:15:00 2023-04-06 09:15:00 Outpatient AKINADE, CEZAR [place]ARR[place] NIKIA [id number] [facility] 2023-03-20 10:45:00 2023-03-20 10:45:00 Outpatient PREZAS, LAKESHIA NIKIA NIKIA [id number] [facility] 2023-03-11 09:00:00 2023-03-11 09:00:00 Outpatient AKINADE, CEZAR HARRINGTON NIKIA [id number] [facility] 2023-03-11 00:00:00 2023-03-11 00:00:00 Outpatient PREZAS, LAKESHIA NIKIA NIKIA [id number] [facility] 2023-03-10 00:00:00 2023-03-10 00:00:00 Outpatient PREZAS, LAKESHIA NIKIA HARRINGTON [id number] [facility] 2023-03-09 10:45:00 2023-03-09 10:45:00 Outpatient PREZAS, LAKESHIA NIKIA NIKIA [id number] [facility] 2023-02-27 00:00:00 2023-02-27 00:00:00 Outpatient PREZAS, LAKESHIA HARRINGTON NIKIA [id number] [facility] 2023-02-26 08:15:00 2023-02-26 08:15:00 Outpatient PREZAS, LAKESHIA NIKIA HARR[place] [id number] [facility] 2023-02-23 10:15:00 2023-02-23 10:15:00 Outpatient SCARLETLYNDSEY NIKIA HARRINGTON [id number] [facility] 2023-02-19 00:00:00 2023-02-19 00:00:00 Outpatient PREZAS, LAKESHIA NIKIA HARR[place] [id number] [facility] 2023-02-18 00:00:00 2023-02-18 00:00:00 Outpatient PREZAS, LAKESHIA NIKIA HARR[place] [id number] [facility] 2023-02-18 00:00:00 2023-02-18 00:00:00 Outpatient PREZAS, LAKESHIA HARRINGTON NIKIA [id number] [facility] 2023-02-18 00:00:00 2023-02-18 00:00:00 Outpatient PREZAS, LAKESHIA HARRINGTON NIKIA [id number] Nikia Seybold 2023-02-17 09:35:00 2023-02-17 09:35:00 Outpatient LAB90 NIKIA HARRINGTON [id number] [facility] 2023-02-17 08:45:00 2023-02-17 08:45:00 Outpatient PREZAS, LAEKSHIA NIKIA HARR[place] [id number] [facility] 2023-02-15 00:00:00 2023-02-15 00:00:00 Outpatient RAMA, LUCRECIA NIKIA HARR[place] [id number] [facility] 2023-01-23 09:20:00 2023-01-23 09:20:00 Outpatient NOCAdonisLIANA NIKIA HARRINGTON [id number] [facility] 2023-01-21 00:00:00 2023-01-21 00:00:00 Outpatient RAMA, LUCRECIA HARRINGTON [id number] [facility] 2023-01-20 13:30:00 2023-01-20 13:30:00 Outpatient PREZAS, LAKESHIA NIKIA HARRINGTON [id number] [facility] 2022-12-26 00:00:00 2022-12-26 00:00:00 Outpatient RAMALUCRECIA SHAW [id number] [facility] 2022-12-25 15:30:00 2022-12-25 15:30:00 Outpatient LYDIA NUBIA HARRINGTON [id number] [facility] 2022-12-23 00:00:00 2022-12-23 00:00:00 Outpatient PREZAS, LAKESHIA NIKIA HARRINGTON [id number] [facility] 2022-12-23 00:00:00 2022-12-23 00:00:00 Outpatient LUCRECIA ONTIVEROS [id number] [facility] 2022-12-01 00:00:00 2022-12-01 00:00:00 Outpatient LUCRECIA ONTIVEROSSEY NIKIA [id number] [facility] 2022-11-28 11:30:00 2022-11-28 11:30:00 Outpatient LAKESHIA ERNST NIKIA HARRINGTON [id number] [facility] 2022-11-20 14:10:00 2022-11-20 14:10:00 Outpatient EVELIO NELSON NIKIA HARRINGTON [id number] [facility] 2022-11-19 00:00:00 2022-11-19 00:00:00 Outpatient RAMA LUCRECIA HARRINGTON [id number] [facility] 2022-11-18 15:00:00 2022-11-18 15:00:00 Outpatient KRISTINAJONATHAN TRIMBLE [id number] [facility] 2022-11-18 00:00:00 2022-11-18 00:00:00 Outpatient KRISTINAJONATHAN TRIMBLE [id number] [facility] 2022-11-04 00:00:00 2022-11-04 00:00:00 Outpatient MARLENE BRAN NIKIA HARRINGTON [id number] [facility] 2022-10-27 00:00:00 2022-10-27 00:00:00 Outpatient LUCERCIA ONTIVEROS [id number] [facility] 2022-10-24 16:30:00 2022-10-24 16:30:00 Outpatient LUCRECIA ONTIVEROS [id number] [facility] 2022-10-21 00:00:00 2022-10-21 00:00:00 Outpatient LUCRECIA ONTIVEROS [id number] [facility] 2022-10-21 00:00:00 2022-10-21 00:00:00 Outpatient LUCRECIA ONTIVEROS [id number] [facility] 2022-10-17 09:20:00 2022-10-17 09:20:00 Outpatient LESLIE HARRINGTON [id number] [facility] 2022-10-17 08:00:00 2022-10-17 08:00:00 Outpatient LUCRECIA ONTIVEROS [id number] [facility] 2022-10-17 00:00:00 2022-10-17 00:00:00 Outpatient LUCRECIA ONTIVEROS NIKIA [id number] [facility] 2022-09-02 17:20:00 2022-09-24 18:29:00 Inpatient Mj Neves [facility]ACL REHA [id number] 77 [facility] 2022-08-18 05:13:00 2022-09-02 16:55:00 Inpatient Wilbert Carbone HCACL INTE.02 [id number] [facility] Results Test Description Test Time Test Comments Results Result Co mments Source GLUCOSE [id number] 11:20:00* Test Item Value Reference Range Interpretation Comme nts GLUCOSE BEDSIDE (test code = GLUBED) 100 MG/DL 70-110 N Performed by cer tified splicer operator at [facility] CBC W/AUTO [id number] 07:55:00* Test Item Value Reference Range Interpretation Comme nts WHITE BLOOD CELL (test code = WBC) 13.1 x10 3/uL 4.5-11.0 H RED BLOOD CELL (test code = RBC) 2.67 x10 6/uL 4.00-5.60 L HEMOGLOBIN (test code = HGB) 7.6 g/dL 12.5-16.9 L HEMATOCRIT (test code = HCT) 25.0 % 37.5-50.7 L MEAN CELL VOLUME (test code = MCV) 93.6 fL 81.0-99.0 N MEAN CELL HGB (test code = MCH) 28.5 pg 27.0-33.0 N MEAN CELL HGB CONCETRATION (test code = MCHC) 30.4 g/dL 33.0-37.0 L RED CELL DISTRIBUTION WIDTH CV (test code = RDW) 16.4 % 11.5-14.5 H RED CELL DISTRIBUTION WIDTH SD (test code = RDW-SD) 55.4 fL 37.0-54.0 H PLATELET COUNT (test code = PLT) 285 x10 3/uL 150-400 N MEAN PLATELET VOLUME (test c ode = MPV) 9.6 fL 7.0-9.0 H NEUTROPHIL % (test code = NT%) 73.5 % 56.0-77.0 N IMMATURE GRANULOCYTE % (test code = IG%) 1.1 % 0.0-2.0 N LYMPHOCYTE % (test code = LY%) 14.8 % 14.0-32.0 N MONOCYTE % (test code = MO%) 7.6 % 4.8-9.0 N EOSINOPHIL % (test code = EO%) 3.0 % 0.3-3.7 N BASOPHIL % (test code = BA%) 0.0 % 0.0-2.0 N NUCLEATED RBC % (test code = NRBC%) 0.0 % 0-0 N NEUTROPHIL # (test code = NT#) 9.62 x10 3/uL 2.0-7.6 H IMMATURE GRANULOCYTE # (test code = IG#) 0.14 x10 3/uL 0.00-0.03 H LYMPHOCYTE # (test code = LY#) 1.93 x10 3/uL 1.0-3.8 N MONOCYTE # (test code = MO#) 0.99 x10 3/uL 0.1-0.8 H EOSINOPHIL # (test code = EO#) 0.39 x10 3/uL 0.0-0.2 H BASOPHIL # (test code = BA#) 0.00 x10 3/uL 0.0-0.2 N NUCLEATED RBC # (test code = NRBC#) 0.00 x10 3/uL 0.0-0.1 N MANUAL DIFF REQUIRED (test c ode = MDIFF) NO BASIC METABOLIC [id number] 07:33:00* Test Item Value Reference Range Interpretation Comme nts SODIUM (test code = NA) 144 mEq/L 134-147 N POTASSIUM (test code = K) 5.0 mEq/L 3.4-5.0 N CHLORIDE (test code = CL) 115 mEq/L 100-108 H CARBON DIOXIDE (test code = CO2) 19 mEq/l 21-33 L ANION GAP (test code = GAP) 15 0-20 N GLUCOSE (test code = GLU) 183 mg/dL 70-110 H BLOOD UREA NITROGEN (test code = BUN) 60 mg/dL 7-18 H GLOMERULAR FILTRATION RATE (test code = GFR) 46.2 90-95 L The Glomerular Filtration Rate is a calculated parameterbased on serum Creatinine, patient age and sex. GFR valuesless than 60 mL/min/1.73 square meters are indicative ofChronic Kidney Disease. Values less than 15 mL/min/1.73square meters indicate Kidney failure. The calculation forGFR is based on the CKD-EPI (2020) calculation. This formulais race indifferent and is the recommended formula for GFRby the National Kidney Foundation for Adults.The GFR will not calculate if the sex is unknown or if thepatient's age is <18 years. CREATININE (test code = CREAT) 1.7 mg/dL 0.6-1.3 H CALCIUM (test code = CA) 7.8 mg/dL 8.0-10.5 L [id number] 07:33:00* Test Item Value Reference Range Interpretation Comme nts PHOSPHOROUS (test code = PHOS) 5.4 MG/DL 2.5-4.9 H [id number] 07:33:00* Test Item Value Reference Range Interpretation Comme nts MAGNESIUM (test code = MAG) 2.18 mg/dL 1.80-2.40 N GLUCOSE [id number] 06:08:00* Test Item Value Reference Range Interpretation Comme nts GLUCOSE BEDSIDE (test code = GLUBED) 176 MG/DL 70-110 H Performed by [employer] splicer operator at [facility] GLUCOSE [id number] 19:52:00* Test Item Value Reference Range Interpretation Comme nts GLUCOSE BEDSIDE (test code = GLUBED) 194 MG/DL 70-110 H Performed by [employer] splicer operator at [facility] GLUCOSE [id number] 15:58:00* Test Item Value Reference Range Interpretation Comme nts GLUCOSE BEDSIDE (test code = GLUBED) 146 MG/DL 70-110 H Performed by [employer] tified splicer operator at [facility] GLUCOSE [id number] 11:33:00* Test Item Value Reference Range Interpretation Comme nts GLUCOSE BEDSIDE (test code = GLUBED) 231 MG/DL 70-110 H Performed by [facility] [employer] splicer operator at [facility] BASIC METABOLIC [id number] 08:11:00* Test Item Value Reference Range Interpretation Comme nts SODIUM (test code = NA) 138 mEq/L 134-147 N POTASSIUM (test code = K) 5.6 mEq/L 3.4-5.0 H CHLORIDE (test code = CL) 112 mEq/L 100-108 H CARBON DIOXIDE (test code = CO2) 19 mEq/l 21-33 L ANION GAP (test code = GAP) 13 0-20 N GLUCOSE (test code = GLU) 217 mg/dL 70-110 H BLOOD UREA NITROGEN (test code = BUN) 70 mg/dL 7-18 H GLOMERULAR FILTRATION RATE (test code = GFR) 35.8 90-95 L The Glomerular Filtration Rate is a calculated parameterbased on serum Creatinine, patient age and sex. GFR valuesless than 60 mL/min/1.73 square meters are indicative ofChronic Kidney Disease. Values less than 15 mL/min/1.73square meters indicate Kidney failure. The calculation forGFR is based on the CKD-EPI (2020) calculation. This formulais race indifferent and is the recommended formula for GFRby the National Kidney Foundation for Adults.The GFR will not calculate if the sex is unknown or if thepatient's age is <18 years. CREATININE (test code = CREAT) 2.1 mg/dL 0.6-1.3 H CALCIUM (test code = CA) 7.8 mg/dL 8.0-10.5 L [id number] 08:11:00* Test Item Value Reference Range Interpretation Comme nts PHOSPHOROUS (test code = PHOS) 5.2 MG/DL 2.5-4.9 H [id number] 08:11:00* Test Item Value Reference Range Interpretation Comme nts MAGNESIUM (test code = MAG) 2.22 mg/dL 1.80-2.40 N CBC W/AUTO [id number] 07:10:00* Test Item Value Reference Range Interpretation Comme nts WHITE BLOOD CELL (test code = WBC) 11.8 x10 3/uL 4.5-11.0 H RED BLOOD CELL (test code = RBC) 2.74 x10 6/uL 4.00-5.60 L HEMOGLOBIN (test code = HGB) 7.8 g/dL 12.5-16.9 L HEMATOCRIT (test code = HCT) 25.4 % 37.5-50.7 L MEAN CELL VOLUME (test code = MCV) 92.7 fL 81.0-99.0 N MEAN CELL HGB (test code = MCH) 28.5 pg 27.0-33.0 N MEAN CELL HGB CONCETRATION (test code = MCHC) 30.7 g/dL 33.0-37.0 L RED CELL DISTRIBUTION WIDTH CV (test code = RDW) 16.1 % 11.5-14.5 H RED CELL DISTRIBUTION WIDTH SD (test code = RDW-SD) 54.4 fL 37.0-54.0 H PLATELET COUNT (test code = PLT) 300 x10 3/uL 150-400 N MEAN PLATELET VOLUME (test code = MPV) 9.4 fL 7.0-9.0 H NEUTROPHIL % (test code = NT%) 84.8 % 56.0-77.0 H IMMATURE GRANULOCYTE % (test code = IG%) 0.9 % 0.0-2.0 N LYMPHOCYTE % (test code = LY%) 9.6 % 14.0-32.0 L MONOCYTE % (test code = MO%) 4.5 % 4.8-9.0 L EOSINOPHIL % (test code = EO%) 0.1 % 0.3-3.7 L BASOPHIL % (test code = BA%) 0.1 % 0.0-2.0 N NUCLEATED RBC % (test code = NRBC%) 0.0 % 0-0 N NEUTROPHIL # (test code = NT#) 10.02 x10 3/uL 2.0-7.6 H IMMATURE GRANULOCYTE # (test code = IG#) 0.11 x10 3/uL 0.00-0.03 H LYMPHOCYTE # (test code = LY#) 1.13 x10 3/uL 1.0-3.8 N MONOCYTE # (test code = MO#) 0.53 x10 3/uL 0.1-0.8 N EOSINOPHIL # (test code = EO#) 0.01 x10 3/uL 0.0-0.2 N BASOPHIL # (test code = BA#) 0.01 x10 3/uL 0.0-0.2 N NUCLEATED RBC # (test code = NRBC#) 0.00 x10 3/uL 0.0-0.1 N MANUAL DIFF REQUIRED (test code = MDIFF) NO GLUCOSE [id number] 06:01:00* Test Item Value Reference Range Interpretation Comme nts GLUCOSE BEDSIDE (test code = GLUBED) 226 MG/DL 70-110 H Performed by cer tified splicer operator at [facility] GLUCOSE [id number] 03:42:00* Test Item Value Reference Range Interpretation Comme nts GLUCOSE BEDSIDE (test code = GLUBED) 190 MG/DL 70-110 H Performed by cer tified splicer operator at [facility] GLUCOSE [id number] 18:59:00* Test Item Value Reference Range Interpretation Comme nts GLUCOSE BEDSIDE (test code = GLUBED) 156 MG/DL 70-110 H Performed by cer tified splicer operator at [facility] GLUCOSE [id number] 16:16:00* Test Item Value Reference Range Interpretation Comme nts GLUCOSE BEDSIDE (test code = GLUBED) 118 MG/DL 70-110 H Performed by cer tified splicer operator at [facility] GLUCOSE [id number] 11:22:00* Test Item Value Reference Range Interpretation Comme nts GLUCOSE BEDSIDE (test code = GLUBED) 170 MG/DL 70-110 H Performed by cer tified splicer operator at [facility] B-TYPE NATRIURETIC [id number] 07:36:00* Test Item Value Reference Range Interpretation Comme nts B-TYPE NATRIURETIC PEPTIDE ( test code = BNP) 251.0 PG/ML 0-100 H CBC W/AUTO [id number] 07:01:00* Test Item Value Reference Range Interpretation Comme nts WHITE BLOOD CELL (test code = WBC) 12.0 x10 3/uL 4.5-11.0 H RED BLOOD CELL (test code = RBC) 2.65 x10 6/uL 4.00-5.60 L HEMOGLOBIN (test code = HGB) 7.7 g/dL 12.5-16.9 L HEMATOCRIT (test code = HCT) 24.2 % 37.5-50.7 L MEAN CELL VOLUME (test code = MCV) 91.3 fL 81.0-99.0 N MEAN CELL HGB (test code = MCH) 29.1 pg 27.0-33.0 N MEAN CELL HGB CONCETRATION (test code = MCHC) 31.8 g/dL 33.0-37.0 L RED CELL DISTRIBUTION WIDTH CV (test code = RDW) 16.0 % 11.5-14.5 H RED CELL DISTRIBUTION WIDTH SD (test code = RDW-SD) 52.8 fL 37.0-54.0 N PLATELET COUNT (test code = PLT) 305 x10 3/uL 150-400 N MEAN PLATELET VOLUME (test c ode = MPV) 9.5 fL 7.0-9.0 H NEUTROPHIL % (test code = NT%) 81.7 % 56.0-77.0 H IMMATURE GRANULOCYTE % (test code = IG%) 1.1 % 0.0-2.0 N LYMPHOCYTE % (test code = LY%) 11.3 % 14.0-32.0 L MONOCYTE % (test code = MO%) 5.7 % 4.8-9.0 N EOSINOPHIL % (test code = EO%) 0.2 % 0.3-3.7 L BASOPHIL % (test code = BA%) 0.0 % 0.0-2.0 N NUCLEATED RBC % (test code = NRBC%) 0.0 % 0-0 N NEUTROPHIL # (test code = NT#) 9.79 x10 3/uL 2.0-7.6 H IMMATURE GRANULOCYTE # (test code = IG#) 0.13 x10 3/uL 0.00-0.03 H LYMPHOCYTE # (test code = LY#) 1.35 x10 3/uL 1.0-3.8 N MONOCYTE # (test code = MO#) 0.68 x10 3/uL 0.1-0.8 N EOSINOPHIL # (test code = EO#) 0.02 x10 3/uL 0.0-0.2 N BASOPHIL # (test code = BA#) 0.00 x10 3/uL 0.0-0.2 N NUCLEATED RBC # (test code = NRBC#) 0.00 x10 3/uL 0.0-0.1 N MANUAL DIFF REQUIRED (test c ode = MDIFF) NO GLUCOSE [id number] 06:33:00* Test Item Value Reference Range Interpretation Comme nts GLUCOSE BEDSIDE (test code = GLUBED) 251 MG/DL 70-110 H Performed by cer tified splicer operator at [facility] BASIC METABOLIC [id number] 05:27:00* Test Item Value Reference Range Interpretation Comme nts SODIUM (test code = NA) 138 mEq/L 134-147 N POTASSIUM (test code = K) 5.1 mEq/L 3.4-5.0 H CHLORIDE (test code = CL) 111 mEq/L 100-108 H CARBON DIOXIDE (test code = CO2) 20 mEq/l 21-33 L ANION GAP (test code = GAP) 12 0-20 N GLUCOSE (test code = GLU) 244 mg/dL 70-110 H BLOOD UREA NITROGEN (test code = BUN) 71 mg/dL 7-18 H GLOMERULAR FILTRATION RATE (test code = GFR) 43.1 90-95 L The Glomerular Filtration Rate is a calculated parameterbased on serum Creatinine, patient age and sex. GFR valuesless than 60 mL/min/1.73 square meters are indicative ofChronic Kidney Disease. Values less than 15 mL/min/1.73square meters indicate Kidney failure. The calculation forGFR is based on the CKD-EPI (2020) calculation. This formulais race indifferent and is the recommended formula for GFRby the National Kidney Foundation for Adults.The GFR will not calculate if the sex is unknown or if thepatient's age is <18 years. CREATININE (test code = CREAT) 1.8 mg/dL 0.6-1.3 H CALCIUM (test code = CA) 7.3 mg/dL 8.0-10.5 L [id number] 05:27:00* Test Item Value Reference Range Interpretation Comme nts ALBUMIN (test code = ALB) 1.80 g/dL 3.4-5.0 L [id number] 05:27:00* Test Item Value Reference Range Interpretation Comme nts PHOSPHOROUS (test code = PHOS) 5.0 MG/DL 2.5-4.9 H CREATINE KINASE (CK)2022-09-22 05:27:00* Test Item Value Reference Range Interpretation Comme nts CREATINE KINASE (CK) (test c ode = CK) 27 Units/L 46-171 L [id number] 05:27:00* Test Item Value Reference Range Interpretation Comme nts MAGNESIUM (test code = MAG) 2.13 mg/dL 1.80-2.40 N [id number] 05:27:00* Test Item Value Reference Range Interpretation Comme nts PREALBUMIN (test code = PREALB) 16.7 mg/dL 16.0-40.0 N GLUCOSE [id number] 21:01:00* Test Item Value Reference Range Interpretation Comme nts GLUCOSE BEDSIDE (test code = GLUBED) 251 MG/DL 70-110 H Performed by cer tified splicer operator at [facility] GLUCOSE [id number] 16:07:00* Test Item Value Reference Range Interpretation Comme nts GLUCOSE BEDSIDE (test code = GLUBED) 170 MG/DL 70-110 H Performed by cer tified splicer operator at [facility] GLUCOSE [id number] 14:50:00* Test Item Value Reference Range Interpretation Comme nts GLUCOSE BEDSIDE (test code = GLUBED) 167 MG/DL 70-110 H Performed by cer tified splicer operator at [facility] GLUCOSE [id number] 12:12:00* Test Item Value Reference Range Interpretation Comme nts GLUCOSE BEDSIDE (test code = GLUBED) 162 MG/DL 70-110 H Performed by cer tified splicer operator at [facility] BASIC METABOLIC [id number] 08:19:00* Test Item Value Reference Range Interpretation Comme nts SODIUM (test code = NA) 137 mEq/L 134-147 N POTASSIUM (test code = K) 4.6 mEq/L 3.4-5.0 N CHLORIDE (test code = CL) 107 mEq/L 100-108 N CARBON DIOXIDE (test code = CO2) 22 mEq/l 21-33 N ANION GAP (test code = GAP) 13 0-20 N GLUCOSE (test code = GLU) 148 mg/dL 70-110 H BLOOD UREA NITROGEN (test code = BUN) 75 mg/dL 7-18 H GLOMERULAR FILTRATION RATE (test code = GFR) 40.4 90-95 L The Glomerular Filtration Rate is a calculated parameterbased on serum Creatinine, patient age and sex. GFR valuesless than 60 mL/min/1.73 square meters are indicative ofChronic Kidney Disease. Values less than 15 mL/min/1.73square meters indicate Kidney failure. The calculation forGFR is based on the CKD-EPI (202) calculation. This formulais race indifferent and is the recommended formula for GFRby the National Kidney Foundation for Adults.The GFR will not calculate if the sex is unknown or if thepatient's age is <18 years. CREATININE (test code = CREAT) 1.9 mg/dL 0.6-1.3 H CALCIUM (test code = CA) 7.5 mg/dL 8.0-10.5 L [id number] 08:19:00* Test Item Value Reference Range Interpretation Comme nts PHOSPHOROUS (test code = PHOS) 5.0 MG/DL 2.5-4.9 H [id number] 08:19:00* Test Item Value Reference Range Interpretation Comme nts MAGNESIUM (test code = MAG) 2.06 mg/dL 1.80-2.40 N CBC W/AUTO [id number] 07:24:00* Test Item Value Reference Range Interpretation Comme nts WHITE BLOOD CELL (test code = WBC) 13.0 x10 3/uL 4.5-11.0 H RED BLOOD CELL (test code = RBC) 2.69 x10 6/uL 4.00-5.60 L HEMOGLOBIN (test code = HGB) 7.6 g/dL 12.5-16.9 L HEMATOCRIT (test code = HCT) 23.9 % 37.5-50.7 L MEAN CELL VOLUME (test code = MCV) 88.8 fL 81.0-99.0 N MEAN CELL HGB (test code = MCH) 28.3 pg 27.0-33.0 N MEAN CELL HGB CONCETRATION (test code = MCHC) 31.8 g/dL 33.0-37.0 L RED CELL DISTRIBUTION WIDTH CV (test code = RDW) 15.7 % 11.5-14.5 H RED CELL DISTRIBUTION WIDTH SD (test code = RDW-SD) 49.5 fL 37.0-54.0 N PLATELET COUNT (test code = PLT) 296 x10 3/uL 150-400 N MEAN PLATELET VOLUME (test code = MPV) 9.8 fL 7.0-9.0 H NEUTROPHIL % (test code = NT%) 82.2 % 56.0-77.0 H IMMATURE GRANULOCYTE % (test code = IG%) 0.9 % 0.0-2.0 N LYMPHOCYTE % (test code = LY%) 11.3 % 14.0-32.0 L MONOCYTE % (test code = MO%) 5.3 % 4.8-9.0 N EOSINOPHIL % (test code = EO%) 0.2 % 0.3-3.7 L BASOPHIL % (test code = BA%) 0.1 % 0.0-2.0 N NUCLEATED RBC % (test code = NRBC%) 0.0 % 0-0 N NEUTROPHIL # (test code = NT#) 10.70 x10 3/uL 2.0-7.6 H IMMATURE GRANULOCYTE # (test code = IG#) 0.12 x10 3/uL 0.00-0.03 H LYMPHOCYTE # (test code = LY#) 1.47 x10 3/uL 1.0-3.8 N MONOCYTE # (test code = MO#) 0.69 x10 3/uL 0.1-0.8 N EOSINOPHIL # (test code = EO#) 0.03 x10 3/uL 0.0-0.2 N BASOPHIL # (test code = BA#) 0.01 x10 3/uL 0.0-0.2 N NUCLEATED RBC # (test code = NRBC#) 0.00 x10 3/uL 0.0-0.1 N MANUAL DIFF REQUIRED (test code = MDIFF) NO GLUCOSE [id number] 05:59:00* Test Item Value Reference Range Interpretation Comme nts GLUCOSE BEDSIDE (test code = GLUBED) 155 MG/DL 70-110 H Performed by cer tified splicer operator at [facility] GLUCOSE [id number] 20:10:00* Test Item Value Reference Range Interpretation Comme nts GLUCOSE BEDSIDE (test code = GLUBED) 239 MG/DL 70-110 H Performed by cer tified splicer operator at [facility] GLUCOSE [id number] 16:14:00* Test Item Value Reference Range Interpretation Comme nts GLUCOSE BEDSIDE (test code = GLUBED) 159 MG/DL 70-110 H Performed by cer tified splicer operator at [facility] GLUCOSE [id number] 11:52:00* Test Item Value Reference Range Interpretation Comme nts GLUCOSE BEDSIDE (test code = GLUBED) 155 MG/DL 70-110 H Performed by cer tified splicer operator at [facility] GLUCOSE [id number] 09:34:00* Test Item Value Reference Range Interpretation Comme nts GLUCOSE BEDSIDE (test code = GLUBED) 299 MG/DL 70-110 H Performed by Bugsnag tified splicer operator at [facility] BASIC METABOLIC [id number] 08:04:00* Test Item Value Reference Range Interpretation Comme nts SODIUM (test code = NA) 136 mEq/L 134-147 N POTASSIUM (test code = K) 4.2 mEq/L 3.4-5.0 N CHLORIDE (test code = CL) 107 mEq/L 100-108 N CARBON DIOXIDE (test code = CO2) 21 mEq/l 21-33 N ANION GAP (test code = GAP) 12 0-20 N GLUCOSE (test code = GLU) 301 mg/dL 70-110 H BLOOD UREA NITROGEN (test code = BUN) 76 mg/dL 7-18 H GLOMERULAR FILTRATION RATE (test code = GFR) 33.9 90-95 L The Glomerular Filtration Rate is a calculated parameterbased on serum Creatinine, patient age and sex. GFR valuesless than 60 mL/min/1.73 square meters are indicative ofChronic Kidney Disease. Values less than 15 mL/min/1.73square meters indicate Kidney failure. The calculation forGFR is based on the CKD-EPI (202) calculation. This formulais race indifferent and is the recommended formula for GFRby the National Kidney Foundation for Adults.The GFR will not calculate if the sex is unknown or if thepatient's age is <18 years. CREATININE (test code = CREAT) 2.2 mg/dL 0.6-1.3 H CALCIUM (test code = CA) 7.4 mg/dL 8.0-10.5 L [id number] 08:04:00* Test Item Value Reference Range Interpretation Comme nts PHOSPHOROUS (test code = PHOS) 5.4 MG/DL 2.5-4.9 H [id number] 08:04:00* Test Item Value Reference Range Interpretation Comme nts MAGNESIUM (test code = MAG) 2.05 mg/dL 1.80-2.40 CBC W/AUTO [id number] 07:53:00* Test Item Value Reference Range Interpretation Comme nts WHITE BLOOD CELL (test code = WBC) 12.3 x10 3/uL 4.5-11.0 H RED BLOOD CELL (test code = RBC) 2.66 x10 6/uL 4.00-5.60 L HEMOGLOBIN (test code = HGB) 7.6 g/dL 12.5-16.9 L HEMATOCRIT (test code = HCT) 23.9 % 37.5-50.7 L MEAN CELL VOLUME (test code = MCV) 89.8 fL 81.0-99.0 N MEAN CELL HGB (test code = MCH) 28.6 pg 27.0-33.0 N MEAN CELL HGB CONCETRATION (test code = MCHC) 31.8 g/dL 33.0-37.0 L RED CELL DISTRIBUTION WIDTH CV (test code = RDW) 15.3 % 11.5-14.5 H RED CELL DISTRIBUTION WIDTH SD (test code = RDW-SD) 49.0 fL 37.0-54.0 N PLATELET COUNT (test code = PLT) 302 x10 3/uL 150-400 N MEAN PLATELET VOLUME (test c ode = MPV) 9.2 fL 7.0-9.0 H NEUTROPHIL % (test code = NT%) 79.7 % 56.0-77.0 H IMMATURE GRANULOCYTE % (test code = IG%) 0.8 % 0.0-2.0 N LYMPHOCYTE % (test code = LY%) 13.0 % 14.0-32.0 L MONOCYTE % (test code = MO%) 6.2 % 4.8-9.0 N EOSINOPHIL % (test code = EO%) 0.2 % 0.3-3.7 L BASOPHIL % (test code = BA%) 0.1 % 0.0-2.0 N NUCLEATED RBC % (test code = NRBC%) 0.0 % 0-0 N NEUTROPHIL # (test code = NT#) 9.84 x10 3/uL 2.0-7.6 H IMMATURE GRANULOCYTE # (test code = IG#) 0.10 x10 3/uL 0.00-0.03 H LYMPHOCYTE # (test code = LY#) 1.60 x10 3/uL 1.0-3.8 N MONOCYTE # (test code = MO#) 0.76 x10 3/uL 0.1-0.8 N EOSINOPHIL # (test code = EO#) 0.03 x10 3/uL 0.0-0.2 N BASOPHIL # (test code = BA#) 0.01 x10 3/uL 0.0-0.2 N NUCLEATED RBC # (test code = NRBC#) 0.00 x10 3/uL 0.0-0.1 N MANUAL DIFF REQUIRED (test c ode = MDIFF) NO GLUCOSE [id number] 05:15:00* Test Item Value Reference Range Interpretation Comme nts GLUCOSE BEDSIDE (test code = GLUBED) 277 MG/DL 70-110 H Performed by cer tified splicer operator at [facility] GLUCOSE [id number] 20:06:00* Test Item Value Reference Range Interpretation Comme nts GLUCOSE BEDSIDE (test code = GLUBED) 236 MG/DL 70-110 H Performed by cer tified splicer operator at [facility] GLUCOSE [id number] 16:11:00* Test Item Value Reference Range Interpretation Comme nts GLUCOSE BEDSIDE (test code = GLUBED) 224 MG/DL 70-110 H Performed by cer tified splicer operator at [facility] GLUCOSE [id number] 11:46:00* Test Item Value Reference Range Interpretation Comme nts GLUCOSE BEDSIDE (test code = GLUBED) 96 MG/DL 70-110 N Performed by cer tified splicer operator at [facility] CBC W/AUTO [id number] 07:51:00* Test Item Value Reference Range Interpretation Comme nts WHITE BLOOD CELL (test code = WBC) 13.3 x10 3/uL 4.5-11.0 H RED BLOOD CELL (test code = RBC) 2.79 x10 6/uL 4.00-5.60 L HEMOGLOBIN (test code = HGB) 8.0 g/dL 12.5-16.9 L HEMATOCRIT (test code = HCT) 25.0 % 37.5-50.7 L MEAN CELL VOLUME (test code = MCV) 89.6 fL 81.0-99.0 N MEAN CELL HGB (test code = MCH) 28.7 pg 27.0-33.0 N MEAN CELL HGB CONCETRATION (test code = MCHC) 32.0 g/dL 33.0-37.0 L RED CELL DISTRIBUTION WIDTH CV (test code = RDW) 14.9 % 11.5-14.5 H RED CELL DISTRIBUTION WIDTH SD (test code = RDW-SD) 48.2 fL 37.0-54.0 N PLATELET COUNT (test code = PLT) 347 x10 3/uL 150-400 N MEAN PLATELET VOLUME (test c ode = MPV) 9.1 fL 7.0-9.0 H NEUTROPHIL % (test code = NT%) 71.4 % 56.0-77.0 N IMMATURE GRANULOCYTE % (test code = IG%) 1.1 % 0.0-2.0 N LYMPHOCYTE % (test code = LY%) 16.5 % 14.0-32.0 N MONOCYTE % (test code = MO%) 8.4 % 4.8-9.0 N EOSINOPHIL % (test code = EO%) 2.4 % 0.3-3.7 N BASOPHIL % (test code = BA%) 0.2 % 0.0-2.0 N NUCLEATED RBC % (test code = NRBC%) 0.0 % 0-0 N NEUTROPHIL # (test code = NT#) 9.50 x10 3/uL 2.0-7.6 H IMMATURE GRANULOCYTE # (test code = IG#) 0.14 x10 3/uL 0.00-0.03 H LYMPHOCYTE # (test code = LY#) 2.19 x10 3/uL 1.0-3.8 N MONOCYTE # (test code = MO#) 1.11 x10 3/uL 0.1-0.8 H EOSINOPHIL # (test code = EO#) 0.32 x10 3/uL 0.0-0.2 H BASOPHIL # (test code = BA#) 0.02 x10 3/uL 0.0-0.2 N NUCLEATED RBC # (test code = NRBC#) 0.00 x10 3/uL 0.0-0.1 N MANUAL DIFF REQUIRED (test c ode = MDIFF) NO BASIC METABOLIC [id number] 07:34:00* Test Item Value Reference Range Interpretation Comme nts SODIUM (test code = NA) 139 mEq/L 134-147 N POTASSIUM (test code = K) 3.8 mEq/L 3.4-5.0 N CHLORIDE (test code = CL) 108 mEq/L 100-108 N CARBON DIOXIDE (test code = CO2) 22 mEq/l 21-33 N ANION GAP (test code = GAP) 13 0-20 N GLUCOSE (test code = GLU) 61 mg/dL 70-110 L BLOOD UREA NITROGEN (test code = BUN) 72 mg/dL 7-18 H GLOMERULAR FILTRATION RATE (test code = GFR) 32.1 90-95 L The Glomerular Filtration Rate is a calculated parameterbased on serum Creatinine, patient age and sex. GFR valuesless than 60 mL/min/1.73 square meters are indicative ofChronic Kidney Disease. Values less than 15 mL/min/1.73square meters indicate Kidney failure. The calculation forGFR is based on the CKD-EPI (202) calculation. This formulais race indifferent and is the recommended formula for GFRby the National Kidney Foundation for Adults.The GFR will not calculate if the sex is unknown or if thepatient's age is <18 years. CREATININE (test code = CREAT) 2.3 mg/dL 0.6-1.3 H CALCIUM (test code = CA) 7.5 mg/dL 8.0-10.5 L [id number] 07:34:00* Test Item Value Reference Range Interpretation Comme nts PHOSPHOROUS (test code = PHOS) 5.0 MG/DL 2.5-4.9 H [id number] 07:34:00* Test Item Value Reference Range Interpretation Comme nts MAGNESIUM (test code = MAG) 1.69 mg/dL 1.80-2.40 L GLUCOSE [id number] 05:10:00* Test Item Value Reference Range Interpretation Comme nts GLUCOSE BEDSIDE (test code = GLUBED) 162 MG/DL 70-110 H Performed by cer tified splicer operator at [facility] GLUCOSE [id number] 22:02:00* Test Item Value Reference Range Interpretation Comme nts GLUCOSE BEDSIDE (test code = GLUBED) 103 MG/DL 70-110 N Performed by cer tified splicer operator at [facility] GLUCOSE [id number] 20:07:00* Test Item Value Reference Range Interpretation Comme nts GLUCOSE BEDSIDE (test code = GLUBED) 70 MG/DL 70-110 N Performed by cer tified splicer operator at [facility] GLUCOSE [id number] 16:28:00* Test Item Value Reference Range Interpretation Comme nts GLUCOSE BEDSIDE (test code = GLUBED) 118 MG/DL 70-110 H Performed by cer tified splicer operator at [facility] ANTINUCLEAR ANTIBODIES [id number] 12:11:00* Test Item Value Reference Range Interpretation Comme nts FANNIE SCREEN (test code = ANASCR) Negative See_Comment Negative <1:80 B orderline 1:80 Positive >1:80ICAP nomenclature: AC-0For more information about Hep-2 cell patterns useANApatterns.org, the official website for theInternational Consensus on Antinuclear Antibody (FANNIE)Patterns (ICAP).Performed At: [address] [id number] Kyle L MD Ph:[phone] [Automated message] The system which generated this result transmitted reference range: (). The reference range was not used to interpret this result as normal/abnormal. COMPLEMENT [id number] 12:11:00* Test Item Value Reference Range Interpretation Comme nts COMPLEMENT C3 (test code = COMC3) 121 mg/dL 82-167 Performed At: [facility] [address] [id number] Castro MD Ph:[phone] COMPLEMENT [id number] 12:11:00* Test Item Value Reference Range Interpretation Comme nts COMPLEMENT C4 (test code = COMC4) 31 mg/dL 12-38 GLUCOSE [id number] 11:16:00* Test Item Value Reference Range Interpretation Comme nts GLUCOSE BEDSIDE (test code = GLUBED) 80 MG/DL 70-110 N Performed by cer tified splicer operator at [facility] GLUCOSE [id number] 09:18:00* Test Item Value Reference Range Interpretation Comme nts GLUCOSE BEDSIDE (test code = GLUBED) 171 MG/DL 70-110 H Performed by cer tified splicer operator at [facility] CBC W/AUTO [id number] 07:52:00* Test Item Value Reference Range Interpretation Comme nts WHITE BLOOD CELL (test code = WBC) 10.6 x10 3/uL 4.5-11.0 N RED BLOOD CELL (test code = RBC) 2.67 x10 6/uL 4.00-5.60 L HEMOGLOBIN (test code = HGB) 7.6 g/dL 12.5-16.9 L HEMATOCRIT (test code = HCT) 23.7 % 37.5-50.7 L MEAN CELL VOLUME (test code = MCV) 88.8 fL 81.0-99.0 N MEAN CELL HGB (test code = MCH) 28.5 pg 27.0-33.0 N MEAN CELL HGB CONCETRATION (test code = MCHC) 32.1 g/dL 33.0-37.0 L RED CELL DISTRIBUTION WIDTH CV (test code = RDW) 14.8 % 11.5-14.5 H RED CELL DISTRIBUTION WIDTH SD (test code = RDW-SD) 47.2 fL 37.0-54.0 N PLATELET COUNT (test code = PLT) 341 x10 3/uL 150-400 N MEAN PLATELET VOLUME (test c ode = MPV) 9.2 fL 7.0-9.0 H NEUTROPHIL % (test code = NT%) 74.6 % 56.0-77.0 N IMMATURE GRANULOCYTE % (test code = IG%) 0.9 % 0.0-2.0 N LYMPHOCYTE % (test code = LY%) 17.4 % 14.0-32.0 N MONOCYTE % (test code = MO%) 6.9 % 4.8-9.0 N EOSINOPHIL % (test code = EO%) 0.1 % 0.3-3.7 L BASOPHIL % (test code = BA%) 0.1 % 0.0-2.0 N NUCLEATED RBC % (test code = NRBC%) 0.0 % 0-0 N NEUTROPHIL # (test code = NT#) 7.91 x10 3/uL 2.0-7.6 H IMMATURE GRANULOCYTE # (test code = IG#) 0.10 x10 3/uL 0.00-0.03 H LYMPHOCYTE # (test code = LY#) 1.85 x10 3/uL 1.0-3.8 N MONOCYTE # (test code = MO#) 0.73 x10 3/uL 0.1-0.8 N EOSINOPHIL # (test code = EO#) 0.01 x10 3/uL 0.0-0.2 N BASOPHIL # (test code = BA#) 0.01 x10 3/uL 0.0-0.2 N NUCLEATED RBC # (test code = NRBC#) 0.00 x10 3/uL 0.0-0.1 N MANUAL DIFF REQUIRED (test c ode = MDIFF) NO BASIC METABOLIC [id number] 07:47:00* Test Item Value Reference Range Interpretation Comme nts SODIUM (test code = NA) 138 mEq/L 134-147 N POTASSIUM (test code = K) 4.1 mEq/L 3.4-5.0 N CHLORIDE (test code = CL) 108 mEq/L 100-108 N CARBON DIOXIDE (test code = CO2) 21 mEq/l 21-33 N ANION GAP (test code = GAP) 13 0-20 N GLUCOSE (test code = GLU) 201 mg/dL 70-110 H BLOOD UREA NITROGEN (test code = BUN) 66 mg/dL 7-18 H GLOMERULAR FILTRATION RATE (test code = GFR) 33.9 90-95 L The Glomerular Filtration Rate is a calculated parameterbased on serum Creatinine, patient age and sex. GFR valuesless than 60 mL/min/1.73 square meters are indicative ofChronic Kidney Disease. Values less than 15 mL/min/1.73square meters indicate Kidney failure. The calculation forGFR is based on the CKD-EPI (2020) calculation. This formulais race indifferent and is the recommended formula for GFRby the National Kidney Foundation for Adults.The GFR will not calculate if the sex is unknown or if thepatient's age is <18 years. CREATININE (test code = CREAT) 2.2 mg/dL 0.6-1.3 H CALCIUM (test code = CA) 7.5 mg/dL 8.0-10.5 L [id number] 07:47:00* Test Item Value Reference Range Interpretation Comme nts PHOSPHOROUS (test code = PHOS) 4.4 MG/DL 2.5-4.9 N [id number] 07:47:00* Test Item Value Reference Range Interpretation Comme nts MAGNESIUM (test code = MAG) 1.83 mg/dL 1.80-2.40 N GLUCOSE [id number] 05:52:00* Test Item Value Reference Range Interpretation Comme nts GLUCOSE BEDSIDE (test code = GLUBED) 203 MG/DL 70-110 H Performed by cer tified splicer operator at [facility] GLUCOSE [id number] 19:34:00* Test Item Value Reference Range Interpretation Comme nts GLUCOSE BEDSIDE (test code = GLUBED) 160 MG/DL 70-110 H Performed by cer tified splicer operator at [facility] GLUCOSE [id number] 16:16:00* Test Item Value Reference Range Interpretation Comme nts GLUCOSE BEDSIDE (test code = GLUBED) 75 MG/DL 70-110 N Performed by Bugsnag tified splicer operator at [facility] GLUCOSE [id number] 10:44:00* Test Item Value Reference Range Interpretation Comme nts GLUCOSE BEDSIDE (test code = GLUBED) 256 MG/DL 70-110 H Performed by Bugsnag tified splicer operator at [facility] GLUCOSE [id number] 10:03:00* Test Item Value Reference Range Interpretation Comme nts GLUCOSE BEDSIDE (test code = GLUBED) 287 MG/DL 70-110 H Performed by cer zari splicer operator at [facility] CBC W/AUTO [id number] 09:09:00* Test Item Value Reference Range Interpretation Comme nts WHITE BLOOD CELL (test code = WBC) 8.9 x10 3/uL 4.5-11.0 N RED BLOOD CELL (test code = RBC) 2.83 x10 6/uL 4.00-5.60 L HEMOGLOBIN (test code = HGB) 8.1 g/dL 12.5-16.9 L HEMATOCRIT (test code = HCT) 24.9 % 37.5-50.7 L MEAN CELL VOLUME (test code = MCV) 88.0 fL 81.0-99.0 N MEAN CELL HGB (test code = MCH) 28.6 pg 27.0-33.0 N MEAN CELL HGB CONCETRATION (test code = MCHC) 32.5 g/dL 33.0-37.0 L RED CELL DISTRIBUTION WIDTH CV (test code = RDW) 14.6 % 11.5-14.5 H RED CELL DISTRIBUTION WIDTH SD (test code = RDW-SD) 46.3 fL 37.0-54.0 N PLATELET COUNT (test code = PLT) 374 x10 3/uL 150-400 N MEAN PLATELET VOLUME (test c ode = MPV) 9.6 fL 7.0-9.0 H NEUTROPHIL % (test code = NT%) 85.2 % 56.0-77.0 H IMMATURE GRANULOCYTE % (test code = IG%) 1.6 % 0.0-2.0 N LYMPHOCYTE % (test code = LY%) 10.2 % 14.0-32.0 L MONOCYTE % (test code = MO%) 2.9 % 4.8-9.0 L EOSINOPHIL % (test code = EO%) 0.0 % 0.3-3.7 L BASOPHIL % (test code = BA%) 0.1 % 0.0-2.0 N NUCLEATED RBC % (test code = NRBC%) 0.0 % 0-0 N NEUTROPHIL # (test code = NT#) 7.58 x10 3/uL 2.0-7.6 N IMMATURE GRANULOCYTE # (test code = IG#) 0.14 x10 3/uL 0.00-0.03 H LYMPHOCYTE # (test code = LY#) 0.91 x10 3/uL 1.0-3.8 L MONOCYTE # (test code = MO#) 0.26 x10 3/uL 0.1-0.8 N EOSINOPHIL # (test code = EO#) 0.00 x10 3/uL 0.0-0.2 N BASOPHIL # (test code = BA#) 0.01 x10 3/uL 0.0-0.2 N NUCLEATED RBC # (test code = NRBC#) 0.00 x10 3/uL 0.0-0.1 N MANUAL DIFF REQUIRED (test c ode = MDIFF) NO BASIC METABOLIC [id number] 07:34:00* Test Item Value Reference Range Interpretation Comme nts SODIUM (test code = NA) 136 mEq/L 134-147 N POTASSIUM (test code = K) 4.5 mEq/L 3.4-5.0 N CHLORIDE (test code = CL) 107 mEq/L 100-108 N CARBON DIOXIDE (test code = CO2) 21 mEq/l 21-33 N ANION GAP (test code = GAP) 12 0-20 N GLUCOSE (test code = GLU) 285 mg/dL 70-110 H BLOOD UREA NITROGEN (test code = BUN) 66 mg/dL 7-18 H GLOMERULAR FILTRATION RATE (test code = GFR) 30.5 90-95 L The Glomerular Filtration Rate is a calculated parameterbased on serum Creatinine, patient age and sex. GFR valuesless than 60 mL/min/1.73 square meters are indicative ofChronic Kidney Disease. Values less than 15 mL/min/1.73square meters indicate Kidney failure. The calculation forGFR is based on the CKD-EPI (2020) calculation. This formulais race indifferent and is the recommended formula for GFRby the National Kidney Foundation for Adults.The GFR will not calculate if the sex is unknown or if thepatient's age is <18 years. CREATININE (test code = CREAT) 2.4 mg/dL 0.6-1.3 H CALCIUM (test code = CA) 7.4 mg/dL 8.0-10.5 L [id number] 07:34:00* Test Item Value Reference Range Interpretation Comme nts PHOSPHOROUS (test code = PHOS) 4.5 MG/DL 2.5-4.9 N [id number] 07:34:00* Test Item Value Reference Range Interpretation Comme nts MAGNESIUM (test code = MAG) 1.97 mg/dL 1.80-2.40 N GLUCOSE [id number] 06:16:00* Test Item Value Reference Range Interpretation Comme nts GLUCOSE BEDSIDE (test code = GLUBED) 286 MG/DL 70-110 H Performed by cer tified splicer operator at [facility] GLUCOSE [id number] 05:03:00* Test Item Value Reference Range Interpretation Comme nts GLUCOSE BEDSIDE (test code = GLUBED) 273 MG/DL 70-110 H Performed by cer [employer] splicer operator at [facility] GLUCOSE [id number] 00:02:00* Test Item Value Reference Range Interpretation Comme nts GLUCOSE BEDSIDE (test code = GLUBED) 291 MG/DL 70-110 H Performed by cer tified splicer operator at [facility] GLUCOSE [id number] 19:47:00* Test Item Value Reference Range Interpretation Comme nts GLUCOSE BEDSIDE (test code = GLUBED) 219 MG/DL 70-110 H Performed by cer tified splicer operator at [facility] GLUCOSE [id number] 16:01:00* Test Item Value Reference Range Interpretation Comme nts GLUCOSE BEDSIDE (test code = GLUBED) 62 MG/DL 70-110 L Performed by cer tified splicer operator at [facility] GLUCOSE [id number] 14:54:00* Test Item Value Reference Range Interpretation Comme nts GLUCOSE BEDSIDE (test code = GLUBED) 60 MG/DL 70-110 L Performed by cer tified splicer operator at [facility] GLUCOSE [id number] 11:23:00* Test Item Value Reference Range Interpretation Comme nts GLUCOSE BEDSIDE (test code = GLUBED) 148 MG/DL 70-110 H Performed by [employer] splicer operator at [facility] BASIC METABOLIC [id number] 08:08:00* Test Item Value Reference Range Interpretation Comme nts SODIUM (test code = NA) 135 mEq/L 134-147 N POTASSIUM (test code = K) 4.5 mEq/L 3.4-5.0 N CHLORIDE (test code = CL) 108 mEq/L 100-108 N CARBON DIOXIDE (test code = CO2) 20 mEq/l 21-33 L ANION GAP (test code = GAP) 11 0-20 N GLUCOSE (test code = GLU) 175 mg/dL 70-110 H BLOOD UREA NITROGEN (test code = BUN) 60 mg/dL 7-18 H GLOMERULAR FILTRATION RATE (test code = GFR) 26.5 90-95 L The Glomerular Filtration Rate is a calculated parameterbased on serum Creatinine, patient age and sex. GFR valuesless than 60 mL/min/1.73 square meters are indicative ofChronic Kidney Disease. Values less than 15 mL/min/1.73square meters indicate Kidney failure. The calculation forGFR is based on the CKD-EPI (2020) calculation. This formulais race indifferent and is the recommended formula for GFRby the National Kidney Foundation for Adults.The GFR will not calculate if the sex is unknown or if thepatient's age is <18 years. CREATININE (test code = CREAT) 2.7 mg/dL 0.6-1.3 H CALCIUM (test code = CA) 7.5 mg/dL 8.0-10.5 L [id number] 08:08:00* Test Item Value Reference Range Interpretation Comme nts PHOSPHOROUS (test code = PHOS) 4.6 MG/DL 2.5-4.9 N [id number] 08:08:00* Test Item Value Reference Range Interpretation Comme nts MAGNESIUM (test code = MAG) 1.93 mg/dL 1.80-2.40 N CBC W/AUTO [id number] 07:27:00* Test Item Value Reference Range Interpretation Comme nts WHITE BLOOD CELL (test code = WBC) 9.5 x10 3/uL 4.5-11.0 N RED BLOOD CELL (test code = RBC) 2.70 x10 6/uL 4.00-5.60 L HEMOGLOBIN (test code = HGB) 7.6 g/dL 12.5-16.9 L HEMATOCRIT (test code = HCT) 23.7 % 37.5-50.7 L MEAN CELL VOLUME (test code = MCV) 87.8 fL 81.0-99.0 MEAN CELL HGB (test code = MCH) 28.1 pg 27.0-33.0 N MEAN CELL HGB CONCETRATION (test code = MCHC) 32.1 g/dL 33.0-37.0 L RED CELL DISTRIBUTION WIDTH CV (test code = RDW) 14.6 % 11.5-14.5 H RED CELL DISTRIBUTION WIDTH SD (test code = RDW-SD) 46.5 fL 37.0-54.0 N PLATELET COUNT (test code = PLT) 360 x10 3/uL 150-400 N MEAN PLATELET VOLUME (test c ode = MPV) 9.6 fL 7.0-9.0 H NEUTROPHIL % (test code = NT%) 73.4 % 56.0-77.0 N IMMATURE GRANULOCYTE % (test code = IG%) 1.0 % 0.0-2.0 N LYMPHOCYTE % (test code = LY%) 18.6 % 14.0-32.0 N MONOCYTE % (test code = MO%) 6.7 % 4.8-9.0 N EOSINOPHIL % (test code = EO%) 0.2 % 0.3-3.7 L BASOPHIL % (test code = BA%) 0.1 % 0.0-2.0 N NUCLEATED RBC % (test code = NRBC%) 0.0 % 0-0 N NEUTROPHIL # (test code = NT#) 6.99 x10 3/uL 2.0-7.6 N IMMATURE GRANULOCYTE # (test code = IG#) 0.10 x10 3/uL 0.00-0.03 H LYMPHOCYTE # (test code = LY#) 1.77 x10 3/uL 1.0-3.8 N MONOCYTE # (test code = MO#) 0.64 x10 3/uL 0.1-0.8 N EOSINOPHIL # (test code = EO#) 0.02 x10 3/uL 0.0-0.2 N BASOPHIL # (test code = BA#) 0.01 x10 3/uL 0.0-0.2 N NUCLEATED RBC # (test code = NRBC#) 0.00 x10 3/uL 0.0-0.1 N MANUAL DIFF REQUIRED (test c ode = MDIFF) NO GLUCOSE [id number] 06:07:00* Test Item Value Reference Range Interpretation Comme nts GLUCOSE BEDSIDE (test code = GLUBED) 195 MG/DL 70-110 H Performed by cer tified splicer operator at [facility] GLUCOSE [id number] 20:10:00* Test Item Value Reference Range Interpretation Comme nts GLUCOSE BEDSIDE (test code = GLUBED) 124 MG/DL 70-110 H Performed by cer tified splicer operator at [facility] GLUCOSE [id number] 16:55:00* Test Item Value Reference Range Interpretation Comme nts GLUCOSE BEDSIDE (test code = GLUBED) 137 MG/DL 70-110 H Performed by cer tified splicer operator at [facility] URINALYSIS [id number] 13:55:00* Test Item Value Reference Range Interpretation Comme nts UA COLOR (test code = COLU) YELLOW YEL/STRAW UA APPEARANCE (test code = APPU) SL CLOUDY CLEAR UA GLUCOSE DIPSTICK (test co de = DGLUU) 2+ NEGATIVE A UA BILIRUBIN DIPSTICK (test code = BILU) NEGATIVE NEGATIVE UA KETONE DIPSTICK (test cod e = KETU) NEGATIVE NEGATIVE UA SPECIFIC GRAVITY (test co de = SGU) 1.013 1.005-1.030 N UA BLOOD DIPSTICK (test code = YOSI) 2+ NEGATIVE A UA PH DIPSTICK (test code = STEFFEN) 5.0 5.0-7.0 N UA PROTEIN DIPSTICK (test co de = PROU) 2+ NEGATIVE A UA UROBILINIOGEN DIPSTICK (t est code = URO) 0.2 mg/dL 0.2-1.0 UA NITRITE DIPSTICK (test co de = NOE) NEGATIVE NEGATIVE UA LEUKOCYTE ESTERASE DIPSTI CK (test code = LEUU) TRACE NEGATIVE A UA RBC (test code = RBCU) 21-50 RBC/HPF 0-3 UA WBC NO REFLEX (test code = WBCUCL) 4-9 WBC/HPF 0-3 A UA BACTERIA (test code = BACU) TRACE /HPF NONE SEEN UA SQUAMOUS CELLS (test code = SQU) 0-5 /HPF NONE SEEN UA TRANSITIONAL CELLS (test code = TRANU) TRACE /HPF NONE SEEN UA GRANULAR CAST (test code = GRANU) 3-5 /LPF NONE UA MUCUS (test code = MUCU) TRACE /LPF NONE SEEN UR PROTEIN [id number] 13:55:00* Test Item Value Reference Range Interpretation Comme [facility] UR PROTEIN RANDOM (test code = PROTU) 283 mg/dL UR CREATININE [id number] 13:55:00* Test Item Value Reference Range Interpretation Comme nts UR CREATININE RANDOM (test code = CREATU) 52.5 mg/dL The Reference Ra nge and Method Performance specificationshave not been established for this fluid. The test resultshould be correlated into the clinical context forinterpretation. GLUCOSE [id number] 12:06:00* Test Item Value Reference Range Interpretation Comme nts GLUCOSE BEDSIDE (test code = GLUBED) 126 MG/DL 70-110 H Performed by cer tified splicer operator at [facility] BASIC METABOLIC [id number] 08:02:00* Test Item Value Reference Range Interpretation Comme nts SODIUM (test code = NA) 132 mEq/L 134-147 L POTASSIUM (test code = K) 4.7 mEq/L 3.4-5.0 N CHLORIDE (test code = CL) 105 mEq/L 100-108 N CARBON DIOXIDE (test code = CO2) 17 mEq/l 21-33 L ANION GAP (test code = GAP) 15 0-20 N GLUCOSE (test code = GLU) 312 mg/dL 70-110 H BLOOD UREA NITROGEN (test code = BUN) 38 mg/dL 7-18 H GLOMERULAR FILTRATION RATE (test code = GFR) 24.3 90-95 L The Glomerular Filtration Rate is a calculated parameterbased on serum Creatinine, patient age and sex. GFR valuesless than 60 mL/min/1.73 square meters are indicative ofChronic Kidney Disease. Values less than 15 mL/min/1.73square meters indicate Kidney failure. The calculation forGFR is based on the CKD-EPI (202) calculation. This formulais race indifferent and is the recommended formula for GFRby the National Kidney Foundation for Adults.The GFR will not calculate if the sex is unknown or if thepatient's age is <18 years. CREATININE (test code = CREAT) 2.9 mg/dL 0.6-1.3 H CALCIUM (test code = CA) 7.2 mg/dL 8.0-10.5 L [id number] 08:02:00* Test Item Value Reference Range Interpretation Comme nts ALBUMIN (test code = ALB) 1.50 g/dL 3.4-5.0 L [id number] 08:02:00* Test Item Value Reference Range Interpretation Comme nts PHOSPHOROUS (test code = PHOS) 5.7 MG/DL 2.5-4.9 H CREATINE KINASE (CK)2022-09-15 08:02:00* Test Item Value Reference Range Interpretation Comme nts CREATINE KINASE (CK) (test c ode = CK) 26 Units/L 46-171 L [id number] 08:02:00* Test Item Value Reference Range Interpretation Comme nts MAGNESIUM (test code = MAG) 1.96 mg/dL 1.80-2.40 N [id number] 08:02:00* Test Item Value Reference Range Interpretation Comme nts PREALBUMIN (test code = PREALB) 8.0 mg/dL 16.0-40.0 L CBC W/AUTO [id number] 07:38:00* Test Item Value Reference Range Interpretation Comme nts WHITE BLOOD CELL (test code = WBC) 8.7 x10 3/uL 4.5-11.0 N RED BLOOD CELL (test code = RBC) 2.88 x10 6/uL 4.00-5.60 L HEMOGLOBIN (test code = HGB) 8.2 g/dL 12.5-16.9 L HEMATOCRIT (test code = HCT) 26.5 % 37.5-50.7 L MEAN CELL VOLUME (test code = MCV) 92.0 fL 81.0-99.0 N MEAN CELL HGB (test code = MCH) 28.5 pg 27.0-33.0 N MEAN CELL HGB CONCETRATION (test code = MCHC) 30.9 g/dL 33.0-37.0 L RED CELL DISTRIBUTION WIDTH CV (test code = RDW) 14.3 % 11.5-14.5 N RED CELL DISTRIBUTION WIDTH SD (test code = RDW-SD) 48.5 fL 37.0-54.0 N PLATELET COUNT (test code = PLT) 341 x10 3/uL 150-400 N MEAN PLATELET VOLUME (test c ode = MPV) 9.1 fL 7.0-9.0 H NEUTROPHIL % (test code = NT%) 84.9 % 56.0-77.0 H IMMATURE GRANULOCYTE % (test code = IG%) 0.5 % 0.0-2.0 N LYMPHOCYTE % (test code = LY%) 11.3 % 14.0-32.0 L MONOCYTE % (test code = MO%) 3.2 % 4.8-9.0 L EOSINOPHIL % (test code = EO%) 0.0 % 0.3-3.7 L BASOPHIL % (test code = BA%) 0.1 % 0.0-2.0 N NUCLEATED RBC % (test code = NRBC%) 0.0 % 0-0 N NEUTROPHIL # (test code = NT#) 7.35 x10 3/uL 2.0-7.6 N IMMATURE GRANULOCYTE # (test code = IG#) 0.04 x10 3/uL 0.00-0.03 H LYMPHOCYTE # (test code = LY#) 0.98 x10 3/uL 1.0-3.8 L MONOCYTE # (test code = MO#) 0.28 x10 3/uL 0.1-0.8 N EOSINOPHIL # (test code = EO#) 0.00 x10 3/uL 0.0-0.2 N BASOPHIL # (test code = BA#) 0.01 x10 3/uL 0.0-0.2 N NUCLEATED RBC # (test code = NRBC#) 0.00 x10 3/uL 0.0-0.1 N MANUAL DIFF REQUIRED (test c ode = MDIFF) NO GLUCOSE [id number] 05:41:00* Test Item Value Reference Range Interpretation Comme nts GLUCOSE BEDSIDE (test code = GLUBED) 309 MG/DL 70-110 H Performed by cer tified splicer operator at [facility] GLUCOSE [id number] 19:58:00* Test Item Value Reference Range Interpretation Comme nts GLUCOSE BEDSIDE (test code = GLUBED) 193 MG/DL 70-110 H Performed by cer tified splicer operator at [facility] GLUCOSE [id number] 16:03:00* Test Item Value Reference Range Interpretation Comme nts GLUCOSE BEDSIDE (test code = GLUBED) 60 MG/DL 70-110 L Performed by cer tified splicer operator at [facility] GLUCOSE [id number] 12:33:00* Test Item Value Reference Range Interpretation Comme nts GLUCOSE BEDSIDE (test code = GLUBED) 137 MG/DL 70-110 H Performed by cer tified splicer operator at [facility] GLUCOSE [id number] 07:47:00* Test Item Value Reference Range Interpretation Comme nts GLUCOSE BEDSIDE (test code = GLUBED) 290 MG/DL 70-110 H Performed by cer zari splicer operator at [facility] BASIC METABOLIC [id number] 07:42:00* Test Item Value Reference Range Interpretation Comme nts SODIUM (test code = NA) 132 mEq/L 134-147 L POTASSIUM (test code = K) 4.4 mEq/L 3.4-5.0 N CHLORIDE (test code = CL) 104 mEq/L 100-108 N CARBON DIOXIDE (test code = CO2) 19 mEq/l 21-33 L ANION GAP (test code = GAP) 14 0-20 N GLUCOSE (test code = GLU) 325 mg/dL 70-110 H BLOOD UREA NITROGEN (test code = BUN) 38 mg/dL 7-18 H GLOMERULAR FILTRATION RATE (test code = GFR) 25.4 90-95 L The Glomerular Filtration Rate is a calculated parameterbased on serum Creatinine, patient age and sex. GFR valuesless than 60 mL/min/1.73 square meters are indicative ofChronic Kidney Disease. Values less than 15 mL/min/1.73square meters indicate Kidney failure. The calculation forGFR is based on the CKD-EPI (202) calculation. This formulais race indifferent and is the recommended formula for GFRby the National Kidney Foundation for Adults.The GFR will not calculate if the sex is unknown or if thepatient's age is <18 years. CREATININE (test code = CREAT) 2.8 mg/dL 0.6-1.3 H CALCIUM (test code = CA) 7.5 mg/dL 8.0-10.5 L CBC W/AUTO [id number] 07:17:00* Test Item Value Reference Range Interpretation Comme nts WHITE BLOOD CELL (test code = WBC) 9.5 x10 3/uL 4.5-11.0 N RED BLOOD CELL (test code = RBC) 2.83 x10 6/uL 4.00-5.60 L HEMOGLOBIN (test code = HGB) 8.0 g/dL 12.5-16.9 L HEMATOCRIT (test code = HCT) 25.3 % 37.5-50.7 L MEAN CELL VOLUME (test code = MCV) 89.4 fL 81.0-99.0 N MEAN CELL HGB (test code = MCH) 28.3 pg 27.0-33.0 N MEAN CELL HGB CONCETRATION (test code = MCHC) 31.6 g/dL 33.0-37.0 L RED CELL DISTRIBUTION WIDTH CV (test code = RDW) 14.0 % 11.5-14.5 N RED CELL DISTRIBUTION WIDTH SD (test code = RDW-SD) 45.4 fL 37.0-54.0 N PLATELET COUNT (test code = PLT) 322 x10 3/uL 150-400 N MEAN PLATELET VOLUME (test c ode = MPV) 9.3 fL 7.0-9.0 H NEUTROPHIL % (test code = NT%) 80.2 % 56.0-77.0 H IMMATURE GRANULOCYTE % (test code = IG%) 0.7 % 0.0-2.0 N LYMPHOCYTE % (test code = LY%) 13.9 % 14.0-32.0 L MONOCYTE % (test code = MO%) 5.1 % 4.8-9.0 N EOSINOPHIL % (test code = EO%) 0.0 % 0.3-3.7 L BASOPHIL % (test code = BA%) 0.1 % 0.0-2.0 N NUCLEATED RBC % (test code = NRBC%) 0.0 % 0-0 N NEUTROPHIL # (test code = NT#) 7.58 x10 3/uL 2.0-7.6 N IMMATURE GRANULOCYTE # (test code = IG#) 0.07 x10 3/uL 0.00-0.03 H LYMPHOCYTE # (test code = LY#) 1.31 x10 3/uL 1.0-3.8 N MONOCYTE # (test code = MO#) 0.48 x10 3/uL 0.1-0.8 N EOSINOPHIL # (test code = EO#) 0.00 x10 3/uL 0.0-0.2 N BASOPHIL # (test code = BA#) 0.01 x10 3/uL 0.0-0.2 N NUCLEATED RBC # (test code = NRBC#) 0.00 x10 3/uL 0.0-0.1 N MANUAL DIFF REQUIRED (test c ode = MDIFF) NO GLUCOSE [id number] 05:52:00* Test Item Value Reference Range Interpretation Comme nts GLUCOSE BEDSIDE (test code = GLUBED) 334 MG/DL 70-110 H Performed by cer tified splicer operator at [facility] GLUCOSE [id number] 19:56:00* Test Item Value Reference Range Interpretation Comme nts GLUCOSE BEDSIDE (test code = GLUBED) 248 MG/DL 70-110 H Performed by cer tified splicer operator at [facility] GLUCOSE [id number] 17:45:00* Test Item Value Reference Range Interpretation Comme nts GLUCOSE BEDSIDE (test code = GLUBED) 130 MG/DL 70-110 H Performed by cer tified splicer operator at [facility] GLUCOSE [id number] 12:16:00* Test Item Value Reference Range Interpretation Comme nts GLUCOSE BEDSIDE (test code = GLUBED) 307 MG/DL 70-110 H Performed by cer tified splicer operator at [facility] CBC W/AUTO [id number] 08:13:00* Test Item Value Reference Range Interpretation Comme nts WHITE BLOOD CELL (test code = WBC) 9.8 x10 3/uL 4.5-11.0 N RED BLOOD CELL (test code = RBC) 2.90 x10 6/uL 4.00-5.60 L HEMOGLOBIN (test code = HGB) 8.2 g/dL 12.5-16.9 L HEMATOCRIT (test code = HCT) 25.4 % 37.5-50.7 L MEAN CELL VOLUME (test code = MCV) 87.6 fL 81.0-99.0 N MEAN CELL HGB (test code = MCH) 28.3 pg 27.0-33.0 N MEAN CELL HGB CONCETRATION (test code = MCHC) 32.3 g/dL 33.0-37.0 L RED CELL DISTRIBUTION WIDTH CV (test code = RDW) 13.7 % 11.5-14.5 N RED CELL DISTRIBUTION WIDTH SD (test code = RDW-SD) 44.0 fL 37.0-54.0 N PLATELET COUNT (test code = PLT) 288 x10 3/uL 150-400 N MEAN PLATELET VOLUME (test c ode = MPV) 10.0 fL 7.0-9.0 H NEUTROPHIL % (test code = NT%) 85.3 % 56.0-77.0 H IMMATURE GRANULOCYTE % (test code = IG%) 0.7 % 0.0-2.0 N LYMPHOCYTE % (test code = LY%) 10.4 % 14.0-32.0 L MONOCYTE % (test code = MO%) 3.5 % 4.8-9.0 L EOSINOPHIL % (test code = EO%) 0.0 % 0.3-3.7 L BASOPHIL % (test code = BA%) 0.1 % 0.0-2.0 N NUCLEATED RBC % (test code = NRBC%) 0.0 % 0-0 N NEUTROPHIL # (test code = NT#) 8.34 x10 3/uL 2.0-7.6 H IMMATURE GRANULOCYTE # (test code = IG#) 0.07 x10 3/uL 0.00-0.03 H LYMPHOCYTE # (test code = LY#) 1.02 x10 3/uL 1.0-3.8 N MONOCYTE # (test code = MO#) 0.34 x10 3/uL 0.1-0.8 N EOSINOPHIL # (test code = EO#) 0.00 x10 3/uL 0.0-0.2 N BASOPHIL # (test code = BA#) 0.01 x10 3/uL 0.0-0.2 N NUCLEATED RBC # (test code = NRBC#) 0.00 x10 3/uL 0.0-0.1 N MANUAL DIFF REQUIRED (test c ode = MDIFF) NO BASIC METABOLIC [id number] 07:31:00* Test Item Value Reference Range Interpretation Comme nts SODIUM (test code = NA) 133 mEq/L 134-147 L POTASSIUM (test code = K) 4.6 mEq/L 3.4-5.0 N CHLORIDE (test code = CL) 107 mEq/L 100-108 N CARBON DIOXIDE (test code = CO2) 19 mEq/l 21-33 L ANION GAP (test code = GAP) 12 0-20 N GLUCOSE (test code = GLU) 241 mg/dL 70-110 H BLOOD UREA NITROGEN (test code = BUN) 28 mg/dL 7-18 H GLOMERULAR FILTRATION RATE (test code = GFR) 26.5 90-95 L The Glomerular Filtration Rate is a calculated parameterbased on serum Creatinine, patient age and sex. GFR valuesless than 60 mL/min/1.73 square meters are indicative ofChronic Kidney Disease. Values less than 15 mL/min/1.73square meters indicate Kidney failure. The calculation forGFR is based on the CKD-EPI (2020) calculation. This formulais race indifferent and is the recommended formula for GFRby the National Kidney Foundation for Adults.The GFR will not calculate if the sex is unknown or if thepatient's age is <18 years. CREATININE (test code = CREAT) 2.7 mg/dL 0.6-1.3 H CALCIUM (test code = CA) 7.8 mg/dL 8.0-10.5 L [id number] 07:31:00* Test Item Value Reference Range Interpretation Comme nts PHOSPHOROUS (test code = PHOS) 4.7 MG/DL 2.5-4.9 N [id number] 07:31:00* Test Item Value Reference Range Interpretation Comme nts MAGNESIUM (test code = MAG) 1.92 mg/dL 1.80-2.40 N GLUCOSE [id number] 05:57:00* Test Item Value Reference Range Interpretation Comme nts GLUCOSE BEDSIDE (test code = GLUBED) 258 MG/DL 70-110 H Performed by cer tified splicer operator at [facility] GLUCOSE [id number] 20:29:00* Test Item Value Reference Range Interpretation Comme nts GLUCOSE BEDSIDE (test code = GLUBED) 223 MG/DL 70-110 H Performed by cer tified splicer operator at [facility] GLUCOSE [id number] 16:20:00* Test Item Value Reference Range Interpretation Comme nts GLUCOSE BEDSIDE (test code = GLUBED) 150 MG/DL 70-110 H Performed by cer tified splicer operator at [facility] UR SMEAR EOSINOPHIL [id number] 12:30:00* Test Item Value Reference Range Interpretation Comme nts UR SMEAR EOSINOPHIL COUNT (t est code = EOSCTU) NONE SEEN B-TYPE NATRIURETIC [id number] 12:00:00* Test Item Value Reference Range Interpretation Comme nts B-TYPE NATRIURETIC PEPTIDE ( test code = BNP) 297.0 PG/ML 0-100 H GLUCOSE [id number] 11:27:00* Test Item Value Reference Range Interpretation Comme nts GLUCOSE BEDSIDE (test code = GLUBED) 68 MG/DL 70-110 L Performed by cer tified splicer operator at [facility] CBC W/AUTO [id number] 07:35:00* Test Item Value Reference Range Interpretation Comme nts WHITE BLOOD CELL (test code = WBC) 8.8 x10 3/uL 4.5-11.0 N RED BLOOD CELL (test code = RBC) 2.73 x10 6/uL 4.00-5.60 L HEMOGLOBIN (test code = HGB) 7.7 g/dL 12.5-16.9 L HEMATOCRIT (test code = HCT) 23.7 % 37.5-50.7 L MEAN CELL VOLUME (test code = MCV) 86.8 fL 81.0-99.0 N MEAN CELL HGB (test code = MCH) 28.2 pg 27.0-33.0 N MEAN CELL HGB CONCETRATION (test code = MCHC) 32.5 g/dL 33.0-37.0 L RED CELL DISTRIBUTION WIDTH CV (test code = RDW) 13.8 % 11.5-14.5 N RED CELL DISTRIBUTION WIDTH SD (test code = RDW-SD) 43.8 fL 37.0-54.0 N PLATELET COUNT (test code = PLT) 248 x10 3/uL 150-400 N MEAN PLATELET VOLUME (test c ode = MPV) 9.7 fL 7.0-9.0 H NEUTROPHIL % (test code = NT%) 72.3 % 56.0-77.0 N IMMATURE GRANULOCYTE % (test code = IG%) 0.7 % 0.0-2.0 N LYMPHOCYTE % (test code = LY%) 15.0 % 14.0-32.0 N MONOCYTE % (test code = MO%) 7.9 % 4.8-9.0 N EOSINOPHIL % (test code = EO%) 3.8 % 0.3-3.7 H BASOPHIL % (test code = BA%) 0.3 % 0.0-2.0 N NUCLEATED RBC % (test code = NRBC%) 0.0 % 0-0 N NEUTROPHIL # (test code = NT#) 6.34 x10 3/uL 2.0-7.6 N IMMATURE GRANULOCYTE # (test code = IG#) 0.06 x10 3/uL 0.00-0.03 H LYMPHOCYTE # (test code = LY#) 1.31 x10 3/uL 1.0-3.8 N MONOCYTE # (test code = MO#) 0.69 x10 3/uL 0.1-0.8 N EOSINOPHIL # (test code = EO#) 0.33 x10 3/uL 0.0-0.2 H BASOPHIL # (test code = BA#) 0.03 x10 3/uL 0.0-0.2 N NUCLEATED RBC # (test code = NRBC#) 0.00 x10 3/uL 0.0-0.1 N MANUAL DIFF REQUIRED (test c ode = MDIFF) NO BASIC METABOLIC [id number] 07:27:00* Test Item Value Reference Range Interpretation Comme nts SODIUM (test code = NA) 134 mEq/L 134-147 N POTASSIUM (test code = K) 4.2 mEq/L 3.4-5.0 N CHLORIDE (test code = CL) 106 mEq/L 100-108 N CARBON DIOXIDE (test code = CO2) 20 mEq/l 21-33 L ANION GAP (test code = GAP) 12 0-20 N GLUCOSE (test code = GLU) 167 mg/dL 70-110 H BLOOD UREA NITROGEN (test code = BUN) 31 mg/dL 7-18 H GLOMERULAR FILTRATION RATE (test code = GFR) 30.5 90-95 L The Glomerular Filtration Rate is a calculated parameterbased on serum Creatinine, patient age and sex. GFR valuesless than 60 mL/min/1.73 square meters are indicative ofChronic Kidney Disease. Values less than 15 mL/min/1.73square meters indicate Kidney failure. The calculation forGFR is based on the CKD-EPI (2020) calculation. This formulais race indifferent and is the recommended formula for GFRby the National Kidney Foundation for Adults.The GFR will not calculate if the sex is unknown or if thepatient's age is <18 years. CREATININE (test code = CREAT) 2.4 mg/dL 0.6-1.3 H CALCIUM (test code = CA) 8.2 mg/dL 8.0-10.5 N [id number] 07:27:00* Test Item Value Reference Range Interpretation Comme nts PHOSPHOROUS (test code = PHOS) 4.4 MG/DL 2.5-4.9 N [id number] 07:27:00* Test Item Value Reference Range Interpretation Comme nts MAGNESIUM (test code = MAG) 1.86 mg/dL 1.80-2.40 N GLUCOSE [id number] 06:33:00* Test Item Value Reference Range Interpretation Comme nts GLUCOSE BEDSIDE (test code = GLUBED) 170 MG/DL 70-110 H Performed by ruel hameed splicer operator at [facility] - XR CHEST 1 [id number] 00:00:00 [facility] : 1965 Sex: MFAX: Mj Sierra [phone] [place]: St: ADM FAX: Rohit Benitez NP [phone] ---- Name: KARMA ROWLAND [facility] : 1965 Age/S: 56/M [address] [place] [address] Unit #: [id number] Loc: G.[address] [place] [id number] Phys: Rohit Benitez NP Acct: [id number] Dis Date: Status: ADM IN PHONE #: [phone] Exam Date: 09/12/2022 1418 FAX #: [phone] Reason: rales and leg edema EXAMS: CPT CODE: [id number] XR CHEST 1 V 40212 PROCEDURE INFORMATION: Exam: XR Chest Exam date and time: 09/12/2022 1:52 PM Age: 56 years old Clinical indication: Other: Rales; Additional info: Rales and leg edema TECHNIQUE: Imaging protocol: Radiologic exam of the chest. Views: 1 view. COMPARISON: CR XR CHEST 1V 09/05 2:30 PM FINDINGS: Tubes, catheters and devices: [...] Mj Vences; Rohit Benitez NP Technologist: RT Angela(Avinash) Trnscrd Date/Time/By: 09/12/2022 (2028) : By: [email or web address] Orig Print D/T: S: 09/12/2022 (2028) PAGE 1 Signed Report [id number] 22:00:00* Test Item Value Reference Range Interpretation Comme nts VANCOMYCIN (test code = VANCO) 16.7 mcg/mL GLUCOSE [id number] 19:49:00* Test Item Value Reference Range Interpretation Comme nts GLUCOSE BEDSIDE (test code = GLUBED) 150 MG/DL 70-110 H Performed by cer tified splicer operator at [facility] GLUCOSE [id number] 16:32:00* Test Item Value Reference Range Interpretation Comme nts GLUCOSE BEDSIDE (test code = GLUBED) 93 MG/DL 70-110 N Performed by cer tified splicer operator at [facility] [id number] 15:18:00* Test Item Value Reference Range Interpretation Comme nts VANCOMYCIN (test code = VANCO) 18.3 mcg/mL IMMUNOELECTROPHORESIS [id number] 14:11:00* Test Item Value Reference Range Interpretation Comme nts IMMUNOGLOBULIN A (test code = ADDI) 598 mg/dL 90-386 A IMMUNOGLOBULIN G (test code = IMMG) 2452 mg/dL 603-1613 A IMMUNOGLOBULIN M (test code = IMMM) 54 mg/dL 20-172 Performed At: DA [facility] [id number] [facility] [address] [place], [place] [id number] CN MD Ph:[phone] ed At: [facility] [address] [id number] Kyle L MD Ph:[phone] IMMUNOFIXATION SERUM (test code = IMMFIXS) Note: See_Comment Polyclonal increase detected in one or moreimmunoglobulins. [Automated message] The system which generated this result transmitted reference range: (). The reference range was not used to interpret this result as normal/abnormal. LACTIC DEHYDROGENASE(LDH)2022-09-11 14:11:00* Test Item Value Reference Range Interpretation Comme nts LACTIC DEHYDROGENASE(LDH) (t est code = LDH) 193 IUnits/L 87-241 N TOTAL IRON BINDING [id number] 14:11:00* Test Item Value Reference Range Interpretation Comme nts SERUM IRON (test code = IRON) 10 mcg/dL 35-150 L TOTAL IRON BINDING CAPACITY (test code = TIBC) 138 mcg/dL 260-445 L UIBC (test code = UIBC) 128 mcg/dL IRON SATURATION (test code = FESAT) 7.2 % 14-34 L [id number] 14:11:00* Test Item Value Reference Range Interpretation Comme nts FERRITIN (test code = COLEMAN) 700.5 ng/mL 23.9-336.2 H GLUCOSE [id number] 11:40:00* Test Item Value Reference Range Interpretation Comme nts GLUCOSE BEDSIDE (test code = GLUBED) 109 MG/DL 70-110 N Performed by cer tified splicer operator at [facility] CBC W/AUTO [id number] 09:23:00* Test Item Value Reference Range Interpretation Comme nts WHITE BLOOD CELL (test code = WBC) 7.9 x10 3/uL 4.5-11.0 N RED BLOOD CELL (test code = RBC) 2.94 x10 6/uL 4.00-5.60 L HEMOGLOBIN (test code = HGB) 8.3 g/dL 12.5-16.9 L HEMATOCRIT (test code = HCT) 25.8 % 37.5-50.7 L MEAN CELL VOLUME (test code = MCV) 87.8 fL 81.0-99.0 N MEAN CELL HGB (test code = MCH) 28.2 pg 27.0-33.0 N MEAN CELL HGB CONCETRATION (test code = MCHC) 32.2 g/dL 33.0-37.0 L RED CELL DISTRIBUTION WIDTH CV (test code = RDW) 13.7 % 11.5-14.5 N RED CELL DISTRIBUTION WIDTH SD (test code = RDW-SD) 44.0 fL 37.0-54.0 N PLATELET COUNT (test code = PLT) 269 x10 3/uL 150-400 N MEAN PLATELET VOLUME (test c ode = MPV) 9.8 fL 7.0-9.0 H NEUTROPHIL % (test code = NT%) 67.9 % 56.0-77.0 N IMMATURE GRANULOCYTE % (test code = IG%) 0.8 % 0.0-2.0 N LYMPHOCYTE % (test code = LY%) 16.1 % 14.0-32.0 N MONOCYTE % (test code = MO%) 9.1 % 4.8-9.0 H EOSINOPHIL % (test code = EO%) 5.6 % 0.3-3.7 H BASOPHIL % (test code = BA%) 0.5 % 0.0-2.0 N NUCLEATED RBC % (test code = NRBC%) 0.0 % 0-0 N NEUTROPHIL # (test code = NT#) 5.35 x10 3/uL 2.0-7.6 N IMMATURE GRANULOCYTE # (test code = IG#) 0.06 x10 3/uL 0.00-0.03 H LYMPHOCYTE # (test code = LY#) 1.27 x10 3/uL 1.0-3.8 N MONOCYTE # (test code = MO#) 0.72 x10 3/uL 0.1-0.8 N EOSINOPHIL # (test code = EO#) 0.44 x10 3/uL 0.0-0.2 H BASOPHIL # (test code = BA#) 0.04 x10 3/uL 0.0-0.2 N NUCLEATED RBC # (test code = NRBC#) 0.00 x10 3/uL 0.0-0.1 N MANUAL DIFF REQUIRED (test c ode = MDIFF) NO BASIC METABOLIC [id number] 07:56:00* Test Item Value Reference Range Interpretation Comme nts SODIUM (test code = NA) 134 mEq/L 134-147 N POTASSIUM (test code = K) 4.3 mEq/L 3.4-5.0 N CHLORIDE (test code = CL) 105 mEq/L 100-108 N CARBON DIOXIDE (test code = CO2) 22 mEq/l 21-33 N ANION GAP (test code = GAP) 12 0-20 N GLUCOSE (test code = GLU) 109 mg/dL 70-110 BLOOD UREA NITROGEN (test code = BUN) 26 mg/dL 7-18 H GLOMERULAR FILTRATION RATE (test code = GFR) 38.0 90-95 L The Glomerular Filtration Rate is a calculated parameterbased on serum Creatinine, patient age and sex. GFR valuesless than 60 mL/min/1.73 square meters are indicative ofChronic Kidney Disease. Values less than 15 mL/min/1.73square meters indicate Kidney failure. The calculation forGFR is based on the CKD-EPI (2020) calculation. This formulais race indifferent and is the recommended formula for GFRby the National Kidney Foundation for Adults.The GFR will not calculate if the sex is unknown or if thepatient's age is <18 years. CREATININE (test code = CREAT) 2.0 mg/dL 0.6-1.3 H CALCIUM (test code = CA) 8.3 mg/dL 8.0-10.5 N [id number] 07:56:00* Test Item Value Reference Range Interpretation Comme nts PHOSPHOROUS (test code = PHOS) 4.7 MG/DL 2.5-4.9 N [id number] 07:56:00* Test Item Value Reference Range Interpretation Comme nts MAGNESIUM (test code = MAG) 1.90 mg/dL 1.80-2.40 N GLUCOSE [id number] 05:55:00* Test Item Value Reference Range Interpretation Comme nts GLUCOSE BEDSIDE (test code = GLUBED) 127 MG/DL 70-110 H Performed by cer tified splicer operator at [facility] GLUCOSE [id number] 19:45:00* Test Item Value Reference Range Interpretation Comme nts GLUCOSE BEDSIDE (test code = GLUBED) 97 MG/DL 70-110 N Performed by cer tified splicer operator at [facility] GLUCOSE [id number] 17:28:00* Test Item Value Reference Range Interpretation Comme nts GLUCOSE BEDSIDE (test code = GLUBED) 75 MG/DL 70-110 N Performed by cer tified splicer operator at [facility] GLUCOSE [id number] 16:37:00* Test Item Value Reference Range Interpretation Comme nts GLUCOSE BEDSIDE (test code = GLUBED) 58 MG/DL 70-110 L Performed by cer tified splicer operator at [facility] [id number] 15:14:00* Test Item Value Reference Range Interpretation Comme nts VANCOMYCIN (test code = VANCO) 15.7 mcg/mL [id number] 15:13:00* Test Item Value Reference Range Interpretation Comme nts HAPTOGLOBIN (test code = HAPT) 292 mg/dL 29-370 Performed At: DA [id number] [facility] [address] [place], [place] [id number] CN MD Ph:[phone] SHORT SAMPLE - NOTIFIED NURSE LISA FOR RED TUBE. G.LAB.KAF04/ 1852GLUCOSE [id number] 10:19:00* Test Item Value Reference Range Interpretation Comme nts GLUCOSE BEDSIDE (test code = GLUBED) 213 MG/DL 70-110 H Performed by cer tified splicer operator at [facility] BASIC METABOLIC [id number] 08:33:00* Test Item Value Reference Range Interpretation Comme nts SODIUM (test code = NA) 135 mEq/L 134-147 N POTASSIUM (test code = K) 4.2 mEq/L 3.4-5.0 N CHLORIDE (test code = CL) 107 mEq/L 100-108 N CARBON DIOXIDE (test code = CO2) 21 mEq/l 21-33 N ANION GAP (test code = GAP) 11 0-20 N GLUCOSE (test code = GLU) 156 mg/dL 70-110 H BLOOD UREA NITROGEN (test code = BUN) 25 mg/dL 7-18 H GLOMERULAR FILTRATION RATE (test code = GFR) 40.4 90-95 L The Glomerular Filtration Rate is a calculated parameterbased on serum Creatinine, patient age and sex. GFR valuesless than 60 mL/min/1.73 square meters are indicative ofChronic Kidney Disease. Values less than 15 mL/min/1.73square meters indicate Kidney failure. The calculation forGFR is based on the CKD-EPI (2020) calculation. This formulais race indifferent and is the recommended formula for GFRby the National Kidney Foundation for Adults.The GFR will not calculate if the sex is unknown or if thepatient's age is <18 years. CREATININE (test code = CREAT) 1.9 mg/dL 0.6-1.3 H CALCIUM (test code = CA) 8.3 mg/dL 8.0-10.5 N [id number] 08:33:00* Test Item Value Reference Range Interpretation Comme nts PHOSPHOROUS (test code = PHOS) 4.6 MG/DL 2.5-4.9 N [id number] 08:33:00* Test Item Value Reference Range Interpretation Comme nts MAGNESIUM (test code = MAG) 1.89 mg/dL 1.80-2.40 N CBC W/AUTO [id number] 08:16:00* Test Item Value Reference Range Interpretation Comme nts WHITE BLOOD CELL (test code = WBC) 8.6 x10 3/uL 4.5-11.0 N RED BLOOD CELL (test code = RBC) 3.08 x10 6/uL 4.00-5.60 L HEMOGLOBIN (test code = HGB) 8.6 g/dL 12.5-16.9 L HEMATOCRIT (test code = HCT) 26.7 % 37.5-50.7 L MEAN CELL VOLUME (test code = MCV) 86.7 fL 81.0-99.0 N MEAN CELL HGB (test code = MCH) 27.9 pg 27.0-33.0 N MEAN CELL HGB CONCETRATION (test code = MCHC) 32.2 g/dL 33.0-37.0 L RED CELL DISTRIBUTION WIDTH CV (test code = RDW) 13.8 % 11.5-14.5 N RED CELL DISTRIBUTION WIDTH SD (test code = RDW-SD) 43.3 fL 37.0-54.0 N PLATELET COUNT (test code = PLT) 265 x10 3/uL 150-400 N MEAN PLATELET VOLUME (test c ode = MPV) 9.6 fL 7.0-9.0 H NEUTROPHIL % (test code = NT%) 69.4 % 56.0-77.0 N IMMATURE GRANULOCYTE % (test code = IG%) 0.7 % 0.0-2.0 N LYMPHOCYTE % (test code = LY%) 15.5 % 14.0-32.0 N MONOCYTE % (test code = MO%) 8.5 % 4.8-9.0 N EOSINOPHIL % (test code = EO%) 5.5 % 0.3-3.7 H BASOPHIL % (test code = BA%) 0.4 % 0.0-2.0 N NUCLEATED RBC % (test code = NRBC%) 0.0 % 0-0 N NEUTROPHIL # (test code = NT#) 5.94 x10 3/uL 2.0-7.6 N IMMATURE GRANULOCYTE # (test code = IG#) 0.06 x10 3/uL 0.00-0.03 H LYMPHOCYTE # (test code = LY#) 1.33 x10 3/uL 1.0-3.8 N MONOCYTE # (test code = MO#) 0.73 x10 3/uL 0.1-0.8 N EOSINOPHIL # (test code = EO#) 0.47 x10 3/uL 0.0-0.2 H BASOPHIL # (test code = BA#) 0.03 x10 3/uL 0.0-0.2 N NUCLEATED RBC # (test code = NRBC#) 0.00 x10 3/uL 0.0-0.1 N MANUAL DIFF REQUIRED (test c ode = MDIFF) NO GLUCOSE [id number] 06:02:00* Test Item Value Reference Range Interpretation Comme nts GLUCOSE BEDSIDE (test code = GLUBED) 154 MG/DL 70-110 H Performed by ruel hameed splicer operator at [facility] - US RETROPERITONEAL [id number] 00:00:00 [facility] : 1965 Sex: MName: KARMA ROWLAND [facility] : 1965 Age/S: 56 / M [address] [place] [address] Unit #: [id number] Loc: BEHZAD [place] [address] Phys: Barrera Ramírez MD Acct: [id number] Dis Date: Status: ADMIN PHONE #: [phone] Exam Date: 09/10/2022 1311 FAX #: [phone] Reason: ERIKA EXAMS: CPT CODE: [id number] US RETROPERITONEAL COM [id number] PROCEDURE INFORMATION: Exam: US Retroperitoneal; Complete;Kidneys and Bladder Exam date and time: 09/10/2022 12:25 PM Age: 56 years old Clinical indication: Condition or disease; Kidney or ureter condition; Acute renal insufficiency; Additional info: Erika TECHNIQUE: Imaging protocol: Real-time ultrasound of the retroperitoneum with image documentation. Complete exam focused on the kidneys and bladder. COMPARISON: CT ABD PELVIS W/CONT 08/18/2022 3:36 AM FINDINGS: Right kidney: The right kidney measures 11.5 cm. No mass, calculi or hydronephrosis. Left kidney: The left kidney measures 11.2 cm. No mass, calculi or hydronephrosis. Urinary bladder: A Foleycatheter is present within an empty bladder, precluding evaluation. IMPRESSION: No acute findings. * * at 1503 Reported and signedby: Bishop Mares M.D. CC: Barrera Ramírez MD; Mj Vences Technologist: Anisa Garnett RDMS(Vielka)(BR) Trnscb Date/Time: 09/10/2022 (1503) [email or web address] Orig Print D/T: S: 09/10/2022 (6313) Probe: PAGE 1 Signed ReportGLUCOSE [id number] 19:36:00* Test Item Value Reference Range Interpretation Comme nts GLUCOSE BEDSIDE (test code = GLUBED) 102 MG/DL 70-110 N Performed by cer tified splicer operator at [facility] GLUCOSE [id number] 16:18:00* Test Item Value Reference Range Interpretation Comme nts GLUCOSE BEDSIDE (test code = GLUBED) 109 MG/DL 70-110 N Performed by cer tified splicer operator at [facility] GLUCOSE [id number] 16:18:00* Test Item Value Reference Range Interpretation Comme nts GLUCOSE BEDSIDE (test code = GLUBED) 30 MG/DL 70-110 L Performed by cer tified splicer operator at [facility] [id number] 14:38:00* Test Item Value Reference Range Interpretation Comme nts VANCOMYCIN (test code = VANCO) 15.4 mcg/mL [id number] 13:34:00* Test Item Value Reference Range Interpretation Comme nts SURGICAL (test code = SR) R UN DATE: 09/09/22 [facility] - LAB PAGE 1 RUN TIME: 1335 Specimen Inquiry RUN USER: INTERFACE P ATIENT: KARMA ROWLAND [facility] #: [id number] AGE/SX: 56/M [facility]OM[facility]: Mj Vences MD : 61 BED: 1 DIS: STATUS: ADM IN TLOC: SPEC #: [id number] RECD: 09/08/22 STATUS: JC CORTEZ #: [id number] JULIENNE: 09/08/22- SUBM DR: Kassie Avitia MD ENTERED: 09/08/22 SP TYPE: SURGICAL OTHR DR: No Primary or Family Physician Wilbert Ramires MD, Mirza Z MD Blackburn, James PA Blackburn, Jeannie A NP Dar, Bilal MD Kaul,Braxton Lawrence,Roxie Trinidad,Aleah Parham,Napoleon Pedersen,Liam X DPMORDERED: [id number], ANATOMIC SPEC COPIES TO: No Primary or Family Physician Wilbert Ramires MD [address] [facility] [address] [place], [place] [id number] [place] [address] [facility] [phone] Guero Candelaria [address] [facility] [phone] Mirella Candelaria NP [address] [place] [id number] Kingsley Ng MD [address] [facility] [address] [place], [place] [phone] CONTINUED ON NEXT PAGE R UN DATE: 09/09/22 [facility] - LAB PAGE 2 RUN TIME: 1335 Specimen Inquiry RUN USER: INTERFACE S PEC #: [id number] PATIENT: KARMA ROWLAND #[id number] (Continued) COPIES TO: (Continued) Kassie Avitia MD [address], [address] [place] [address] Braxton Chapin MD [address] [facility] [address] [place] [address] Roxie Lawrence [address] [place] [phone] Aleah Trinidad MD [address] [facility] [address] [place] [address] OTHER PHONE [phone] (CELL) Napoleon Parham MD [address] [facility], [address] [place] [address] Liam Pedersen DPM [address] [facility], [address] [place] [phone] [email or web address] PROCEDURES: [id number] (09/08/22) TISSUES: A. RECTUM BIOPSY CLINICAL HISTORY GASTRITIS, GASTRIC POLYP FINAL DIAGNOSIS Rectum, polypectomy: Tubular adenoma. CONTINUED ON NEXT PAGE R UN DATE: 09/09/22 [facility] - LAB PAGE 3 RUN TIME: 1335 Specimen Inquiry RUN USER: INTERFACE S PEC #: [id number] PATIENT: KARMA ROWLAND #[id number] (Continued) GROSS DESCRIPTION Received in formalin and designated rectal polyp biopsy is 1 segment of pink-ramirez tissuemeasuring 0.2 cm. Submitted in 1 cassette. Technical component performed at [facility],[address] [place] [address] Unless gross only, the diagnosis is based [...] INFORMATION ANEMIA ----- Signed SIGNATURE ON FILE Wilfrid Patino 09/09/22 1334 END OF REPORT GLUCOSE [id number] 11:16:00* Test Item Value Reference Range Interpretation Comme nts GLUCOSE BEDSIDE (test code = GLUBED) 90 MG/DL 70-110 N Performed by ruel hameed splicer operator at [facility] BASIC METABOLIC [id number] 08:03:00* Test Item Value Reference Range Interpretation Comme nts SODIUM (test code = NA) 136 mEq/L 134-147 N POTASSIUM (test code = K) 4.2 mEq/L 3.4-5.0 N CHLORIDE (test code = CL) 107 mEq/L 100-108 N CARBON DIOXIDE (test code = CO2) 22 mEq/l 21-33 N ANION GAP (test code = GAP) 11 0-20 N GLUCOSE (test code = GLU) 125 mg/dL 70-110 H BLOOD UREA NITROGEN (test code = BUN) 23 mg/dL 7-18 H GLOMERULAR FILTRATION RATE (test code = GFR) 53.6 90-95 L The Glomerular Filtration Rate is a calculated parameterbased on serum Creatinine, patient age and sex. GFR valuesless than 60 mL/min/1.73 square meters are indicative ofChronic Kidney Disease. Values less than 15 mL/min/1.73square meters indicate Kidney failure. The calculation forGFR is based on the CKD-EPI (2020) calculation. This formulais race indifferent and is the recommended formula for GFRby the National Kidney Foundation for Adults.The GFR will not calculate if the sex is unknown or if thepatient's age is <18 years. CREATININE (test code = CREAT) 1.5 mg/dL 0.6-1.3 H CALCIUM (test code = CA) 8.2 mg/dL 8.0-10.5 N [id number] 08:03:00* Test Item Value Reference Range Interpretation Comme nts PHOSPHOROUS (test code = PHOS) 4.0 MG/DL 2.5-4.9 N [id number] 08:03:00* Test Item Value Reference Range Interpretation Comme nts MAGNESIUM (test code = MAG) 1.89 mg/dL 1.80-2.40 CBC W/AUTO [id number] 07:03:00* Test Item Value Reference Range Interpretation Comme nts WHITE BLOOD CELL (test code = WBC) 9.2 x10 3/uL 4.5-11.0 N RED BLOOD CELL (test code = RBC) 3.01 x10 6/uL 4.00-5.60 L HEMOGLOBIN (test code = HGB) 8.5 g/dL 12.5-16.9 L HEMATOCRIT (test code = HCT) 25.9 % 37.5-50.7 L MEAN CELL VOLUME (test code = MCV) 86.0 fL 81.0-99.0 N MEAN CELL HGB (test code = MCH) 28.2 pg 27.0-33.0 N MEAN CELL HGB CONCETRATION (test code = MCHC) 32.8 g/dL 33.0-37.0 L RED CELL DISTRIBUTION WIDTH CV (test code = RDW) 13.8 % 11.5-14.5 N RED CELL DISTRIBUTION WIDTH SD (test code = RDW-SD) 43.9 fL 37.0-54.0 N PLATELET COUNT (test code = PLT) 263 x10 3/uL 150-400 N MEAN PLATELET VOLUME (test c ode = MPV) 9.7 fL 7.0-9.0 H NEUTROPHIL % (test code = NT%) 69.1 % 56.0-77.0 N IMMATURE GRANULOCYTE % (test code = IG%) 0.5 % 0.0-2.0 N LYMPHOCYTE % (test code = LY%) 16.1 % 14.0-32.0 N MONOCYTE % (test code = MO%) 9.2 % 4.8-9.0 H EOSINOPHIL % (test code = EO%) 4.7 % 0.3-3.7 H BASOPHIL % (test code = BA%) 0.4 % 0.0-2.0 N NUCLEATED RBC % (test code = NRBC%) 0.0 % 0-0 N NEUTROPHIL # (test code = NT#) 6.38 x10 3/uL 2.0-7.6 N IMMATURE GRANULOCYTE # (test code = IG#) 0.05 x10 3/uL 0.00-0.03 H LYMPHOCYTE # (test code = LY#) 1.49 x10 3/uL 1.0-3.8 N MONOCYTE # (test code = MO#) 0.85 x10 3/uL 0.1-0.8 H EOSINOPHIL # (test code = EO#) 0.43 x10 3/uL 0.0-0.2 H BASOPHIL # (test code = BA#) 0.04 x10 3/uL 0.0-0.2 N NUCLEATED RBC # (test code = NRBC#) 0.00 x10 3/uL 0.0-0.1 N MANUAL DIFF REQUIRED (test c ode = MDIFF) NO GLUCOSE [id number] 05:56:00* Test Item Value Reference Range Interpretation Comme nts GLUCOSE BEDSIDE (test code = GLUBED) 128 MG/DL 70-110 H Performed by cer tified splicer operator at [facility] GLUCOSE [id number] 20:07:00* Test Item Value Reference Range Interpretation Comme nts GLUCOSE BEDSIDE (test code = GLUBED) 106 MG/DL 70-110 N Performed by cer tified splicer operator at [facility] RETIC COUNT (AUTOMATED)2022-09-08 19:16:00* Test Item Value Reference Range Interpretation Comme nts RETIC COUNT (AUTOMATED) (ozzy t code = RETICA) 1.3 % 0.3-2.3 N GLUCOSE [id number] 16:29:00* Test Item Value Reference Range Interpretation Comme nts GLUCOSE BEDSIDE (test code = GLUBED) 120 MG/DL 70-110 H Performed by cer tified splicer operator at [facility] GLUCOSE [id number] 13:31:00* Test Item Value Reference Range Interpretation Comme nts GLUCOSE BEDSIDE (test code = GLUBED) 101 MG/DL 70-110 N Performed by cer tified splicer operator at [facility] [id number] 11:14:00* Test Item Value Reference Range Interpretation Comme nts VANCOMYCIN (test code = VANCO) 15.8 mcg/mL COMMENTS: RN: vanc dose by level, draw vanc level on timeGLUCOSE BEDSIDE 2022-09-08 10:56:00* Test Item Value Reference Range Interpretation Comme nts GLUCOSE BEDSIDE (test code = GLUBED) 99 MG/DL 70-110 N Performed by cer zari splicer operator at [facility] BASIC METABOLIC [id number] 09:21:00* Test Item Value Reference Range Interpretation Comme nts SODIUM (test code = NA) 135 mEq/L 134-147 N POTASSIUM (test code = K) 4.6 mEq/L 3.4-5.0 N CHLORIDE (test code = CL) 107 mEq/L 100-108 N CARBON DIOXIDE (test code = CO2) 22 mEq/l 21-33 N ANION GAP (test code = GAP) 10 0-20 N GLUCOSE (test code = GLU) 100 mg/dL 70-110 N BLOOD UREA NITROGEN (test code = BUN) 22 mg/dL 7-18 H GLOMERULAR FILTRATION RATE (test code = GFR) 58.3 90-95 L The Glomerular Filtration Rate is a calculated parameterbased on serum Creatinine, patient age and sex. GFR valuesless than 60 mL/min/1.73 square meters are indicative ofChronic Kidney Disease. Values less than 15 mL/min/1.73square meters indicate Kidney failure. The calculation forGFR is based on the CKD-EPI (2020) calculation. This formulais race indifferent and is the recommended formula for GFRby the National Kidney Foundation for Adults.The GFR will not calculate if the sex is unknown or if thepatient's age is <18 years. CREATININE (test code = CREAT) 1.4 mg/dL 0.6-1.3 H CALCIUM (test code = CA) 8.1 mg/dL 8.0-10.5 N [id number] 09:21:00* Test Item Value Reference Range Interpretation Comme nts ALBUMIN (test code = ALB) 1.30 g/dL 3.4-5.0 L CREATINE KINASE (CK)2022-09-08 09:21:00* Test Item Value Reference Range Interpretation Comme nts CREATINE KINASE (CK) (test c ode = CK) 22 Units/L 46-171 L [id number] 09:21:00* Test Item Value Reference Range Interpretation Comme nts MAGNESIUM (test code = MAG) 1.58 mg/dL 1.80-2.40 L [id number] 09:21:00* Test Item Value Reference Range Interpretation Comme nts PREALBUMIN (test code = PREALB) < 5.0 mg/dL 16.0-40.0 L CBC W/AUTO [id number] 09:02:00* Test Item Value Reference Range Interpretation Comme nts WHITE BLOOD CELL (test code = WBC) 9.1 x10 3/uL 4.5-11.0 N RED BLOOD CELL (test code = RBC) 3.05 x10 6/uL 4.00-5.60 L HEMOGLOBIN (test code = HGB) 8.5 g/dL 12.5-16.9 L HEMATOCRIT (test code = HCT) 26.2 % 37.5-50.7 L MEAN CELL VOLUME (test code = MCV) 85.9 fL 81.0-99.0 N MEAN CELL HGB (test code = MCH) 27.9 pg 27.0-33.0 N MEAN CELL HGB CONCETRATION (test code = MCHC) 32.4 g/dL 33.0-37.0 L RED CELL DISTRIBUTION WIDTH CV (test code = RDW) 13.5 % 11.5-14.5 N RED CELL DISTRIBUTION WIDTH SD (test code = RDW-SD) 42.7 fL 37.0-54.0 N PLATELET COUNT (test code = PLT) 231 x10 3/uL 150-400 N MEAN PLATELET VOLUME (test c ode = MPV) 9.6 fL 7.0-9.0 H NEUTROPHIL % (test code = NT%) 73.3 % 56.0-77.0 N IMMATURE GRANULOCYTE % (test code = IG%) 0.7 % 0.0-2.0 N LYMPHOCYTE % (test code = LY%) 13.7 % 14.0-32.0 L MONOCYTE % (test code = MO%) 7.2 % 4.8-9.0 N EOSINOPHIL % (test code = EO%) 4.8 % 0.3-3.7 H BASOPHIL % (test code = BA%) 0.3 % 0.0-2.0 N NUCLEATED RBC % (test code = NRBC%) 0.0 % 0-0 N NEUTROPHIL # (test code = NT#) 6.64 x10 3/uL 2.0-7.6 N IMMATURE GRANULOCYTE # (test code = IG#) 0.06 x10 3/uL 0.00-0.03 H LYMPHOCYTE # (test code = LY#) 1.24 x10 3/uL 1.0-3.8 N MONOCYTE # (test code = MO#) 0.65 x10 3/uL 0.1-0.8 N EOSINOPHIL # (test code = EO#) 0.43 x10 3/uL 0.0-0.2 H BASOPHIL # (test code = BA#) 0.03 x10 3/uL 0.0-0.2 N NUCLEATED RBC # (test code = NRBC#) 0.00 x10 3/uL 0.0-0.1 N MANUAL DIFF REQUIRED (test c ode = MDIFF) NO GLUCOSE [id number] 06:36:00* Test Item Value Reference Range Interpretation Comme nts GLUCOSE BEDSIDE (test code = GLUBED) 101 MG/DL 70-110 N Performed by cer tified splicer operator at [facility] GLUCOSE [id number] 23:02:00* Test Item Value Reference Range Interpretation Comme nts GLUCOSE BEDSIDE (test code = GLUBED) 135 MG/DL 70-110 H Performed by cer tified splicer operator at [facility] GLUCOSE [id number] 21:22:00* Test Item Value Reference Range Interpretation Comme nts GLUCOSE BEDSIDE (test code = GLUBED) 127 MG/DL 70-110 H Performed by cer tified splicer operator at [facility] GLUCOSE [id number] 16:06:00* Test Item Value Reference Range Interpretation Comme nts GLUCOSE BEDSIDE (test code = GLUBED) 112 MG/DL 70-110 H Performed by cer tified splicer operator at [facility] GLUCOSE [id number] 11:51:00* Test Item Value Reference Range Interpretation Comme nts GLUCOSE BEDSIDE (test code = GLUBED) 51 MG/DL 70-110 L Performed by cer tified splicer operator at [facility] GLUCOSE [id number] 11:44:00* Test Item Value Reference Range Interpretation Comme nts GLUCOSE BEDSIDE (test code = GLUBED) 42 MG/DL 70-110 L Performed by cer tified splicer operator at [facility] [id number] 08:33:00* Test Item Value Reference Range Interpretation Comme nts VANCOMYCIN (test code = VANCO) 14.7 mcg/mL HGB [id number] 07:59:00* Test Item Value Reference Range Interpretation Comme nts HEMOGLOBIN (test code = HGB) 8.4 g/dL 12.5-16.9 L HEMATOCRIT (test code = HCT) 26.2 % 37.5-50.7 L [id number] 07:51:00* Test Item Value Reference Range Interpretation Comme nts CREATININE (test code = CREAT) 1.4 mg/dL 0.6-1.3 H GLUCOSE [id number] 06:34:00* Test Item Value Reference Range Interpretation Comme nts GLUCOSE BEDSIDE (test code = GLUBED) 135 MG/DL 70-110 H Performed by cer [employer] splicer operator at [facility] GLUCOSE [id number] 22:38:00* Test Item Value Reference Range Interpretation Comme nts GLUCOSE BEDSIDE (test code = GLUBED) 192 MG/DL 70-110 H Performed by [employer] splicer operator at [facility] GLUCOSE [id number] 21:31:00* Test Item Value Reference Range Interpretation Comme nts GLUCOSE BEDSIDE (test code = GLUBED) 211 MG/DL 70-110 H Performed by [employer] splicer operator at [facility] VANCOMYCIN [id number] 16:23:00* Test Item Value Reference Range Interpretation Comme nts VANCOMYCIN TROUGH (test code = VANCT) 18.9 mcg/mL 10.0-20.0 N 10-15 mcg/mL - Cellulitis, Urinary Tract Infection. 15-20 mcg/mL - Bacteremia, Infective Endocarditis, Meningitis, Osteomyelitis, Pneumonia, Severe Skin/Soft-Tissue Infection, Spinal Abscess. GLUCOSE [id number] 16:02:00* Test Item Value Reference Range Interpretation Comme nts GLUCOSE BEDSIDE (test code = GLUBED) 119 MG/DL 70-110 H Performed by cer [employer] splicer operator at [facility] GLUCOSE [id number] 11:03:00* Test Item Value Reference Range Interpretation Comme nts GLUCOSE BEDSIDE (test code = GLUBED) 92 MG/DL 70-110 N Performed by [employer] splicer operator at [facility] HGB [id number] 08:55:00* Test Item Value Reference Range Interpretation Comme nts HEMOGLOBIN (test code = HGB) 8.6 g/dL 12.5-16.9 L HEMATOCRIT (test code = HCT) 26.1 % 37.5-50.7 L [id number] 07:45:00* Test Item Value Reference Range Interpretation Comme nts CREATININE (test code = CREAT) 1.4 mg/dL 0.6-1.3 H GLUCOSE [id number] 06:18:00* Test Item Value Reference Range Interpretation Comme nts GLUCOSE BEDSIDE (test code = GLUBED) 124 MG/DL 70-110 H Performed by cer tified splicer operator at [facility] GLUCOSE [id number] 19:36:00* Test Item Value Reference Range Interpretation Comme nts GLUCOSE BEDSIDE (test code = GLUBED) 117 MG/DL 70-110 H Performed by cer tified splicer operator at [facility] GLUCOSE [id number] 16:51:00* Test Item Value Reference Range Interpretation Comme nts GLUCOSE BEDSIDE (test code = GLUBED) 123 MG/DL 70-110 H Performed by cer tified splicer operator at [facility] GLUCOSE [id number] 12:01:00* Test Item Value Reference Range Interpretation Comme nts GLUCOSE BEDSIDE (test code = GLUBED) 74 MG/DL 70-110 N Performed by cer tified splicer operator at [facility] HGB [id number] 07:54:00* Test Item Value Reference Range Interpretation Comme nts HEMOGLOBIN (test code = HGB) 7.1 g/dL 12.5-16.9 L HEMATOCRIT (test code = HCT) 22.7 % 37.5-50.7 L BASIC METABOLIC [id number] 07:40:00* Test Item Value Reference Range Interpretation Comme nts SODIUM (test code = NA) 134 mEq/L 134-147 N POTASSIUM (test code = K) 5.0 mEq/L 3.4-5.0 N CHLORIDE (test code = CL) 109 mEq/L 100-108 H CARBON DIOXIDE (test code = CO2) 21 mEq/l 21-33 N ANION GAP (test code = GAP) 9 0-20 N GLUCOSE (test code = GLU) 75 mg/dL 70-110 N BLOOD UREA NITROGEN (test code = BUN) 24 mg/dL 7-18 H GLOMERULAR FILTRATION RATE (test code = GFR) 63.7 90-95 L The Glomerular Filtration Rate is a calculated parameterbased on serum Creatinine, patient age and sex. GFR valuesless than 60 mL/min/1.73 square meters are indicative ofChronic Kidney Disease. Values less than 15 mL/min/1.73square meters indicate Kidney failure. The calculation forGFR is based on the CKD-EPI (202) calculation. This formulais race indifferent and is the recommended formula for GFRby the National Kidney Foundation for Adults.The GFR will not calculate if the sex is unknown or if thepatient's age is <18 years. CREATININE (test code = CREAT) 1.3 mg/dL 0.6-1.3 N CALCIUM (test code = CA) 7.9 mg/dL 8.0-10.5 L - XR CHEST 1 [id number] 00:00:00 [facility] : 1965 Sex: MFAX: Mj Sierra [phone] [place]: St: [facility] FAX: Rohit Benitez NP [phone] ---- Name: KARMA ROWLAND [facility] : 1965 Age/S: 56/M [address] [place] [address] Unit #: [id number] Loc: Cristina[address] [place] [address] Phys: Rohit Benitez NP Acct: [id number] Dis Date: Status: ADM IN PHONE #: [phone] Exam Date: 09/05/2022 1436 FAX #: [phone] Reason: sob EXAMS: CPT CODE: [id number] XR CHEST 1 V 23451 PROCEDURE INFORMATION: Exam: XR Chest Exam date [...] SVC. Pleural spaces: Unremarkable. No pleural effusion. No pneumothorax. Heart/Mediastinum: Heart size is within normal limits. Vasculature is unrem arkable. Bones/joints: Unremarkable. IMPRESSION: Minimal bibasilar pulmonary opacities at 1515 Reported and signed by: Jennifer Zheng CC: Mj Vences; Rohit Benitez NP Technologist: Jenaro Carrillo Date/Time/By: 09/05/2022 (1816) : By: Yared Orig Print D/T: S: 09/05/2022 (8626) PAGE 1 Signed Report - [facility] VEIN UNI/[id number] 00:00:00 [facility] : 1965 Sex: MName: KARMA ROWLAND [facility] : 1965 Age/S: 56 / M [address] [place] [address] Unit #: [id number] Loc: BEHZ[place] [address] Phys: Mj Vences MD Acct: [id number] Dis Date: Status: ADM IN PHONE #: [phone] Exam Date: 09/05/2022 1146 FAX #: [phone] Reason: R/0 DVT EXAMS: CPT CODE: [id number] DUP VEIN UNI/LTD 53047 PROCEDURE INFORMATION: Exam: US Duplex Left Lower Extrem ity Veins, Limited Exam date and time: 09/05/2022 11:22 [...] lower extremity veins. COMPARISON: US DUP VEIN UNI/LTD08/28/2022 8:40 AM FINDINGS: Left deep veins: Unremarkable. The [...] internal vascularity or peripheral hyperemia. May represent a hematoma. at 1332 Reported and signed by: Mert Ga M.D. CC: Mj Vences Technologist: Dave Gaines [facility] Date/Time: 09/05/2022 (2897) [email or web address] Orig Print D/T: S: 09/05/2022 (4982) Probe: PAGE 1 SignedReport GLUCOSE [id number] 20:54:00* Test Item Value Reference Range Interpretation Comme nts GLUCOSE BEDSIDE (test code = GLUBED) 103 MG/DL 70-110 N Performed by cer tified splicer operator at [facility] VANCOMYCIN [id number] 17:00:00* Test Item Value Reference Range Interpretation Comme nts VANCOMYCIN TROUGH (test code = VANCT) 12.8 mcg/mL 10.0-20.0 N 10-15 mcg/mL - Cellulitis, Urinary Tract Infection. 15-20 mcg/mL - Bacteremia, Infective Endocarditis, Meningitis, Osteomyelitis, Pneumonia, Severe Skin/Soft-Tissue Infection, Spinal Abscess. GLUCOSE [id number] 16:20:00* Test Item Value Reference Range Interpretation Comme nts GLUCOSE BEDSIDE (test code = GLUBED) 128 MG/DL 70-110 H Performed by cer tified splicer operator at [facility] HGB [id number] 11:42:00* Test Item Value Reference Range Interpretation Comme nts HEMOGLOBIN (test code = HGB) 7.7 g/dL 12.5-16.9 L HEMATOCRIT (test code = HCT) 23.7 % 37.5-50.7 L GLUCOSE [id number] 11:21:00* Test Item Value Reference Range Interpretation Comme nts GLUCOSE BEDSIDE (test code = GLUBED) 107 MG/DL 70-110 N Performed by cer tified splicer operator at [facility] GLUCOSE [id number] 08:28:00* Test Item Value Reference Range Interpretation Comme nts GLUCOSE BEDSIDE (test code = GLUBED) 99 MG/DL 70-110 N Performed by cer tified splicer operator at [facility] GLUCOSE [id number] 07:33:00* Test Item Value Reference Range Interpretation Comme nts GLUCOSE BEDSIDE (test code = GLUBED) 87 MG/DL 70-110 N Performed by cer tified splicer operator at [facility] HGB [id number] 07:27:00* Test Item Value Reference Range Interpretation Comme nts HEMOGLOBIN (test code = HGB) 6.8 g/dL 12.5-16.9 L HEMATOCRIT (test code = HCT) 21.2 % 37.5-50.7 L - XR ABDOMEN 1V (KUB)2022-09-04 00:00:00 [facility] : 1965 Sex: MFAX: Mj Sierra [phone] [place]: St: ADM Name: KARMA ROWLAND [facility] : 1965 Age/S:56/M [address] [place] [address] Unit #: [id number] Loc: [address] [address] Phys: Mj Vences MD Acct: [id number] Dis Date: Status: ADM IN PHONE #: [phone] Exam Date: 09/04/2022 1648 FAX #: [phone] Reason: DISTENDED ABDOMEN EXAMS: CPT CODE: [id number] XR ABDOMEN 1V (KU) [id number] PROCEDURE INFORMATION: Exam: XR Abdomen Exam date and time: 09/04/2022 4:48 PM Age: 56 years old Clinical indication: Abdominal distension. TECHNIQUE: Imaging protocol: Radiologic exam of the abdomen. Views: Frontal supine view of the abdomen. 1 View. COMPARISON: CT ABD PELVIS W/CONT 08/18/2022 3:36 AMFINDINGS: Gastrointestinal tract: There is a non-obstructive bowel gas pattern. There is no abnormal dilatation of bowel loops. There is no pneumatosis or mass effect. Bones/joints: Unremarkable. Soft tissues: No abnormal radiopaque densities. IMPRESSION: Benign appearance of the abdomen. at 1757 Reported and signed by: Roger Parra M.D. CC: Mj Vences Technologist: Josie Wyman Trnscrd Date/Time/By: 09/04/2022 (1756) : By: [email or web address] Orig Print D/T: S: 09/04/2022 (1756) PAGE 1 Signed ReportVANCOMYCIN [id number] 20:29:00* Test Item Value Reference Range Interpretation Comme nts VANCOMYCIN PEAK (test code = VANCP) 27.4 MCG/ML 30-40 L GLUCOSE [id number] 20:01:00* Test Item Value Reference Range Interpretation Comme nts GLUCOSE BEDSIDE (test code = GLUBED) 124 MG/DL 70-110 H Performed by cer tified splicer operator at [facility] GLUCOSE [id number] 16:44:00* Test Item Value Reference Range Interpretation Comme nts GLUCOSE BEDSIDE (test code = GLUBED) 135 MG/DL 70-110 H Performed by cer tified splicer operator at [facility] GLUCOSE [id number] 12:45:00* Test Item Value Reference Range Interpretation Comme nts GLUCOSE BEDSIDE (test code = GLUBED) 136 MG/DL 70-110 H Performed by cer tified splicer operator at [facility] GLUCOSE [id number] 12:05:00* Test Item Value Reference Range Interpretation Comme nts GLUCOSE BEDSIDE (test code = GLUBED) 50 MG/DL 70-110 L Performed by cer tified splicer operator at [facility] GLUCOSE [id number] 12:05:00* Test Item Value Reference Range Interpretation Comme nts GLUCOSE BEDSIDE (test code = GLUBED) 44 MG/DL 70-110 L Performed by cer tified splicer operator at [facility] CBC W/AUTO [id number] 07:41:00* Test Item Value Reference Range Interpretation Comme nts WHITE BLOOD CELL (test code = WBC) 8.7 x10 3/uL 4.5-11.0 N RED BLOOD CELL (test code = RBC) 2.92 x10 6/uL 4.00-5.60 L HEMOGLOBIN (test code = HGB) 8.0 g/dL 12.5-16.9 L HEMATOCRIT (test code = HCT) 25.5 % 37.5-50.7 L MEAN CELL VOLUME (test code = MCV) 87.3 fL 81.0-99.0 N MEAN CELL HGB (test code = MCH) 27.4 pg 27.0-33.0 N MEAN CELL HGB CONCETRATION (test code = MCHC) 31.4 g/dL 33.0-37.0 L RED CELL DISTRIBUTION WIDTH CV (test code = RDW) 13.9 % 11.5-14.5 N RED CELL DISTRIBUTION WIDTH SD (test code = RDW-SD) 44.7 fL 37.0-54.0 N PLATELET COUNT (test code = PLT) 188 x10 3/uL 150-400 N MEAN PLATELET VOLUME (test c ode = MPV) 10.1 fL 7.0-9.0 H NEUTROPHIL % (test code = NT%) 75.0 % 56.0-77.0 N IMMATURE GRANULOCYTE % (test code = IG%) 0.5 % 0.0-2.0 N LYMPHOCYTE % (test code = LY%) 15.1 % 14.0-32.0 N MONOCYTE % (test code = MO%) 6.8 % 4.8-9.0 N EOSINOPHIL % (test code = EO%) 2.3 % 0.3-3.7 N BASOPHIL % (test code = BA%) 0.3 % 0.0-2.0 N NUCLEATED RBC % (test code = NRBC%) 0.0 % 0-0 N NEUTROPHIL # (test code = NT#) 6.51 x10 3/uL 2.0-7.6 N IMMATURE GRANULOCYTE # (test code = IG#) 0.04 x10 3/uL 0.00-0.03 H LYMPHOCYTE # (test code = LY#) 1.31 x10 3/uL 1.0-3.8 N MONOCYTE # (test code = MO#) 0.59 x10 3/uL 0.1-0.8 N EOSINOPHIL # (test code = EO#) 0.20 x10 3/uL 0.0-0.2 N BASOPHIL # (test code = BA#) 0.03 x10 3/uL 0.0-0.2 N NUCLEATED RBC # (test code = NRBC#) 0.00 x10 3/uL 0.0-0.1 N MANUAL DIFF REQUIRED (test c ode = MDIFF) NO COMPREHENSIVE METABOLIC [id number] 07:30:00* Test Item Value Reference Range Interpretation Comme nts SODIUM (test code = NA) 135 mEq/L 134-147 N POTASSIUM (test code = K) 4.6 mEq/L 3.4-5.0 N CHLORIDE (test code = CL) 111 mEq/L 100-108 H CARBON DIOXIDE (test code = CO2) 22 mEq/l 21-33 N ANION GAP (test code = GAP) 6 0-20 N GLUCOSE (test code = GLU) 92 mg/dL 70-110 N BLOOD UREA NITROGEN (test code = BUN) 22 mg/dL 7-18 H GLOMERULAR FILTRATION RATE (test code = GFR) 77.8 90-95 L The Glomerular Filtration Rate is a calculated parameterbased on serum Creatinine, patient age and sex. GFR valuesless than 60 mL/min/1.73 square meters are indicative ofChronic Kidney Disease. Values less than 15 mL/min/1.73square meters indicate Kidney failure. The calculation forGFR is based on the CKD-EPI (202) calculation. This formulais race indifferent and is the recommended formula for GFRby the National Kidney Foundation for Adults.The GFR will not calculate if the sex is unknown or if thepatient's age is <18 years. CREATININE (test code = CREAT) 1.1 mg/dL 0.6-1.3 N TOTAL PROTEIN (test code = PROT) 6.7 g/dL 6.4-8.2 N ALBUMIN (test code = ALB) 1.30 g/dL 3.4-5.0 L CALCIUM (test code = CA) 7.9 mg/dL 8.0-10.5 L BILIRUBIN TOTAL (test code = BILT) 0.30 mg/dL 0.0-1.0 N SGOT/AST (test code = AST) 15 IUnit/L 15-37 N SGPT/ALT (test code = ALT) < 7 IUnit/L 30-65 L ALKALINE PHOSPHATASE TOTAL (test code = ALKP) 93 IUnit/L 20-125 N [id number] 07:30:00* Test Item Value Reference Range Interpretation Comme nts MAGNESIUM (test code = MAG) 1.89 mg/dL 1.80-2.40 N [id number] 07:30:00* Test Item Value Reference Range Interpretation Comme nts PREALBUMIN (test code = PREALB) < 5.0 mg/dL 16.0-40.0 L GLUCOSE [id number] 05:35:00* Test Item Value Reference Range Interpretation Comme nts GLUCOSE BEDSIDE (test code = GLUBED) 88 MG/DL 70-110 N Performed by cer tified splicer operator at [facility] GLUCOSE [id number] 19:45:00* Test Item Value Reference Range Interpretation Comme nts GLUCOSE BEDSIDE (test code = GLUBED) 210 MG/DL 70-110 H Performed by cer tified splicer operator at [facility] GLUCOSE [id number] 19:45:00* Test Item Value Reference Range Interpretation Comme nts GLUCOSE BEDSIDE (test code = GLUBED) 159 MG/DL 70-110 H Performed by cer tified splicer operator at [facility] GLUCOSE [id number] 17:45:00* Test Item Value Reference Range Interpretation Comme nts GLUCOSE BEDSIDE (test code = GLUBED) 102 MG/DL 70-110 N Performed by cer tified splicer operator at [facility] GLUCOSE [id number] 16:23:00* Test Item Value Reference Range Interpretation Comme nts GLUCOSE BEDSIDE (test code = GLUBED) 97 MG/DL 70-110 N Performed by cer tified splicer operator at [facility] GLUCOSE [id number] 15:40:00* Test Item Value Reference Range Interpretation Comme nts GLUCOSE BEDSIDE (test code = GLUBED) 257 MG/DL 70-110 H Performed by cer tified splicer operator at [facility] GLUCOSE [id number] 11:00:00* Test Item Value Reference Range Interpretation Comme nts GLUCOSE BEDSIDE (test code = GLUBED) 162 MG/DL 70-110 H Performed by cer tified splicer operator at [facility] GLUCOSE [id number] 10:22:00* Test Item Value Reference Range Interpretation Comme nts GLUCOSE BEDSIDE (test code = GLUBED) 62 MG/DL 70-110 L Performed by cer tified splicer operator at [facility] GLUCOSE [id number] 10:20:00* Test Item Value Reference Range Interpretation Comme nts GLUCOSE BEDSIDE (test code = GLUBED) 63 MG/DL 70-110 L Performed by cer tified splicer operator at [facility] GLUCOSE [id number] 06:41:00* Test Item Value Reference Range Interpretation Comme nts GLUCOSE BEDSIDE (test code = GLUBED) 77 MG/DL 70-110 N Performed by cer tified splicer operator at [facility] BASIC METABOLIC [id number] 05:46:00* Test Item Value Reference Range Interpretation Comme nts SODIUM (test code = NA) 134 mEq/L 134-147 N POTASSIUM (test code = K) 5.0 mEq/L 3.4-5.0 N CHLORIDE (test code = CL) 111 mEq/L 100-108 H CARBON DIOXIDE (test code = CO2) 21 mEq/l 21-33 N ANION GAP (test code = GAP) 7 0-20 N GLUCOSE (test code = GLU) 88 mg/dL 70-110 BLOOD UREA NITROGEN (test code = BUN) 26 mg/dL 7-18 H GLOMERULAR FILTRATION RATE (test code = GFR) 70.1 90-95 L The Glomerular Filtration Rate is a calculated parameterbased on serum Creatinine, patient age and sex. GFR valuesless than 60 mL/min/1.73 square meters are indicative ofChronic Kidney Disease. Values less than 15 mL/min/1.73square meters indicate Kidney failure. The calculation forGFR is based on the CKD-EPI (2020) calculation. This formulais race indifferent and is the recommended formula for GFRby the National Kidney Foundation for Adults.The GFR will not calculate if the sex is unknown or if thepatient's age is <18 years. CREATININE (test code = CREAT) 1.2 mg/dL 0.6-1.3 N CALCIUM (test code = CA) 7.4 mg/dL 8.0-10.5 L GLUCOSE [id number] 19:54:00* Test Item Value Reference Range Interpretation Comme [facility] GLUCOSE BEDSIDE (test code = GLUBED) 91 MG/DL 70-110 N Performed by cer tified splicer operator at [facility] GLUCOSE [id number] 17:17:00* Test Item Value Reference Range Interpretation Comme nts GLUCOSE BEDSIDE (test code = GLUBED) 127 MG/DL 70-110 H Performed by ruel arce at [facility] [id number] 11:20:00* Test Item Value Reference Range Interpretation Comme nts SURGICAL (test code = SR) R UN DATE: 09/01/22 [place] - LAB PAGE 1 RUN TIME: 1120 Specimen Inquiry RUN USER: INTERFACE P ATIENT: KARMA ROWLAND LOC: DONYA U #: [id number] AGE/SX: 56/M ROOM: [facility]: Wilbert Ramires MD : 61 BED: 1 DIS: STATUS: ADM IN TLOC: SPEC #: [id number] RECD: 08/29/22 STATUS: JC OCRTEZ #: [id number] JULIENNE: 08/28/22- SUBM DR: Nixon Leroy MD ENTERED: 08/29/22 SP TYPE: SURGICAL OTHR DR: No Primary or Family Physician Self Referred Anthony Curtis MD, Brent J MD Gibberman, Jeffrey B MD Hackney, Jeromy T MD Juarez, Jesus MD Kaul,Braxton Parham,Napoleon Pedersen,Liam X DPM Yo,In S MDORDERED: 13850, ANATOMIC SPEC CODES: [id number] - LEG, NOS COPIES TO: No Primary or Family Physician [place] [address] [facility] [address] [address] Andrew London MD [address] [place], [place] [address] Mj Vences MD [address] [place] [address] David Du MD [address] [facility] [place] [address] [email or web address] CONTINUED ON NEXT PAGE R UN DATE: 09/01/22 [facility] PAGE 2 RUN TIME: 1120 Specimen Inquiry RUN USER: INTERFACE S PEC #: [id number] PATIENT: KARMA ROWLAND #[id number] (Continued) COPIES TO: (Continued) Nixon Leroy MD [address] [place] [address] Braxton Chapin MD [address] [facility] [address] [place] [address] Napoleon Parham MD [address] [facility], [address] [address] Liam Pedersen DPM [address] [facility], [address] [place] [address] [email or web address] Forrest Oswald MD [address] [place], [place] [address] [place], [place] [address] PROCEDURES: [id number] (08/29/22) TISSUES: LEG, NOS - RIGHT BELOW [...] dimension. The resection margins appear grossly viable. Mobile Lab Technician sections of the resection margins are submitted in cassette A. CONTINUED ON NEXT PAGE R UN DATE: 09/01/22 [place] - LAB PAGE 3 RUN TIME: 1120 Specimen Inquiry RUN USER: INTERFACE S [facility] #: [id number] PATIENT: KARMA ROWLAND #[id number] (Continued) GROSS DESCRIPTION (Continued) Mobile Lab Technician sections of the gangrenous tissue are submitted in cassette B. Mobile Lab Technician sections of the vasculature are submitted in cassette C. [place] [address] Unless gross only, the diagnosis is based [...] Crane 09/01/22 1120 END OF REPORT GLUCOSE [id number] 11:15:00* Test Item Value Reference Range Interpretation Comme [facility] GLUCOSE BEDSIDE (test code = GLUBED) 118 MG/DL 70-110 H Performed by cer [employer] splicer operator at [facility] COVID 19 Asymptomatic IH [id number] 09:45:00* Test Item Value Reference Range Interpretation Comme nts COVID 19 Asymptomatic IH AG (test code = COVNONPUIAG) Negative Negative A negative resul t is presumptive and should be confirmedwith an FDA authorized molecular assay, if necessary forpatient management.A positive result does not rule out co-infections withother pathogens.This test detects both viable (live) and non-viable,SARS-CoV, and SARS-CoV-2. Test performance depends on theamount of virus (antigen) in the sample.This test has not been FDA cleared or approved; the test hasbeen authorized by FDA under an Emergency Use Authorization(EUA) for use by laboratories certified under the CLIA thatmeet the requirements to perform moderate, high or waivedcomplexity tests. GLUCOSE [id number] 07:16:00* Test Item Value Reference Range Interpretation Comme [facility] GLUCOSE BEDSIDE (test code = GLUBED) 145 MG/DL 70-110 H Performed by cer Personal[employer]ied splicer operator at [facility] CREATINE KINASE (CK)2022-09-01 05:19:00* Test Item Value Reference Range Interpretation Comme [facility] CREATINE KINASE (CK) (test c ode = CK) 79 Units/L 46-171 N GLUCOSE [id number] 19:34:00* Test Item Value Reference Range Interpretation Comme [facility] GLUCOSE BEDSIDE (test code = GLUBED) 176 MG/DL 70-110 H Performed by [facility] Personalingied splicer operator at [facility] HGB [id number] 18:22:00* Test Item Value Reference Range Interpretation Comme nts HEMOGLOBIN (test code = HGB) 9.1 g/dL 12.5-16.9 L HEMATOCRIT (test code = HCT) 28.2 % 37.5-50.7 L GLUCOSE [id number] 16:31:00* Test Item Value Reference Range Interpretation Comme nts GLUCOSE BEDSIDE (test code = GLUBED) 163 MG/DL 70-110 H Performed by cer tified splicer operator at [facility] GLUCOSE [id number] 12:53:00* Test Item Value Reference Range Interpretation Comme nts GLUCOSE BEDSIDE (test code = GLUBED) 76 MG/DL 70-110 N Performed by cer tified splicer operator at [facility] GLUCOSE [id number] 12:20:00* Test Item Value Reference Range Interpretation Comme nts GLUCOSE BEDSIDE (test code = GLUBED) 44 MG/DL 70-110 L Performed by cer tified splicer operator at [facility] CBC W/AUTO [id number] 07:49:00* Test Item Value Reference Range Interpretation Comme nts WHITE BLOOD CELL (test code = WBC) 8.7 x10 3/uL 4.5-11.0 N RED BLOOD CELL (test code = RBC) 2.50 x10 6/uL 4.00-5.60 L HEMOGLOBIN (test code = HGB) 6.9 g/dL 12.5-16.9 L HEMATOCRIT (test code = HCT) 21.7 % 37.5-50.7 L MEAN CELL VOLUME (test code = MCV) 86.8 fL 81.0-99.0 N MEAN CELL HGB (test code = MCH) 27.6 pg 27.0-33.0 N MEAN CELL HGB CONCETRATION (test code = MCHC) 31.8 g/dL 33.0-37.0 L RED CELL DISTRIBUTION WIDTH CV (test code = RDW) 14.3 % 11.5-14.5 N RED CELL DISTRIBUTION WIDTH SD (test code = RDW-SD) 45.4 fL 37.0-54.0 N PLATELET COUNT (test code = PLT) 208 x10 3/uL 150-400 N MEAN PLATELET VOLUME (test c ode = MPV) 9.4 fL 7.0-9.0 H NEUTROPHIL % (test code = NT%) 76.3 % 56.0-77.0 N IMMATURE GRANULOCYTE % (test code = IG%) 0.3 % 0.0-2.0 N LYMPHOCYTE % (test code = LY%) 16.8 % 14.0-32.0 N MONOCYTE % (test code = MO%) 4.8 % 4.8-9.0 N EOSINOPHIL % (test code = EO%) 1.6 % 0.3-3.7 N BASOPHIL % (test code = BA%) 0.2 % 0.0-2.0 N NUCLEATED RBC % (test code = NRBC%) 0.0 % 0-0 N NEUTROPHIL # (test code = NT#) 6.63 x10 3/uL 2.0-7.6 N IMMATURE GRANULOCYTE # (test code = IG#) 0.03 x10 3/uL 0.00-0.03 N LYMPHOCYTE # (test code = LY#) 1.46 x10 3/uL 1.0-3.8 N MONOCYTE # (test code = MO#) 0.42 x10 3/uL 0.1-0.8 N EOSINOPHIL # (test code = EO#) 0.14 x10 3/uL 0.0-0.2 N BASOPHIL # (test code = BA#) 0.02 x10 3/uL 0.0-0.2 N NUCLEATED RBC # (test code = NRBC#) 0.00 x10 3/uL 0.0-0.1 N MANUAL DIFF REQUIRED (test c ode = MDIFF) NO BASIC METABOLIC [id number] 07:34:00* Test Item Value Reference Range Interpretation Comme nts SODIUM (test code = NA) 136 mEq/L 134-147 N POTASSIUM (test code = K) 5.4 mEq/L 3.4-5.0 H CHLORIDE (test code = CL) 110 mEq/L 100-108 H CARBON DIOXIDE (test code = CO2) 22 mEq/l 21-33 N ANION GAP (test code = GAP) 9 0-20 N GLUCOSE (test code = GLU) 129 mg/dL 70-110 H BLOOD UREA NITROGEN (test code = BUN) 29 mg/dL 7-18 H GLOMERULAR FILTRATION RATE (test code = GFR) 70.1 90-95 L The Glomerular Filtration Rate is a calculated parameterbased on serum Creatinine, patient age and sex. GFR valuesless than 60 mL/min/1.73 square meters are indicative ofChronic Kidney Disease. Values less than 15 mL/min/1.73square meters indicate Kidney failure. The calculation forGFR is based on the CKD-EPI (2020) calculation. This formulais race indifferent and is the recommended formula for GFRby the National Kidney Foundation for Adults.The GFR will not calculate if the sex is unknown or if thepatient's age is <18 years. CREATININE (test code = CREAT) 1.2 mg/dL 0.6-1.3 N CALCIUM (test code = CA) 7.2 mg/dL 8.0-10.5 L GLUCOSE [id number] 07:31:00* Test Item Value Reference Range Interpretation Comme nts GLUCOSE BEDSIDE (test code = GLUBED) 110 MG/DL 70-110 N Performed by cer tified splicer operator at [facility] GLUCOSE [id number] 20:49:00* Test Item Value Reference Range Interpretation Comme nts GLUCOSE BEDSIDE (test code = GLUBED) 140 MG/DL 70-110 H Performed by cer tified splicer operator at [facility] GLUCOSE [id number] 17:11:00* Test Item Value Reference Range Interpretation Comme nts GLUCOSE BEDSIDE (test code = GLUBED) 109 MG/DL 70-110 N Performed by cer tified splicer operator at [facility] GLUCOSE [id number] 12:35:00* Test Item Value Reference Range Interpretation Comme nts GLUCOSE BEDSIDE (test code = GLUBED) 81 MG/DL 70-110 N Performed by cer tified splicer operator at [facility] GLUCOSE [id number] 08:38:00* Test Item Value Reference Range Interpretation Comme nts GLUCOSE BEDSIDE (test code = GLUBED) 83 MG/DL 70-110 N Performed by cer tified splicer operator at [facility] BASIC METABOLIC [id number] 06:17:00* Test Item Value Reference Range Interpretation Comme nts SODIUM (test code = NA) 136 mEq/L 134-147 N POTASSIUM (test code = K) 5.2 mEq/L 3.4-5.0 H CHLORIDE (test code = CL) 109 mEq/L 100-108 H CARBON DIOXIDE (test code = CO2) 23 mEq/l 21-33 N ANION GAP (test code = GAP) 9 0-20 N GLUCOSE (test code = GLU) 65 mg/dL 70-110 L BLOOD UREA NITROGEN (test code = BUN) 33 mg/dL 7-18 H GLOMERULAR FILTRATION RATE (test code = GFR) 63.7 90-95 L The Glomerular Filtration Rate is a calculated parameterbased on serum Creatinine, patient age and sex. GFR valuesless than 60 mL/min/1.73 square meters are indicative ofChronic Kidney Disease. Values less than 15 mL/min/1.73square meters indicate Kidney failure. The calculation forGFR is based on the CKD-EPI (202) calculation. This formulais race indifferent and is the recommended formula for GFRby the National Kidney Foundation for Adults.The GFR will not calculate if the sex is unknown or if thepatient's age is <18 years. CREATININE (test code = CREAT) 1.3 mg/dL 0.6-1.3 N CALCIUM (test code = CA) 7.3 mg/dL 8.0-10.5 L [id number] 06:17:00* Test Item Value Reference Range Interpretation Comme nts PHOSPHOROUS (test code = PHOS) 4.6 MG/DL 2.5-4.9 N [id number] 06:17:00* Test Item Value Reference Range Interpretation Comme nts MAGNESIUM (test code = MAG) 2.01 mg/dL 1.80-2.40 N CBC W/AUTO [id number] 06:07:00* Test Item Value Reference Range Interpretation Comme nts WHITE BLOOD CELL (test code = WBC) 12.6 x10 3/uL 4.5-11.0 H RED BLOOD CELL (test code = RBC) 2.55 x10 6/uL 4.00-5.60 L HEMOGLOBIN (test code = HGB) 7.2 g/dL 12.5-16.9 L HEMATOCRIT (test code = HCT) 22.7 % 37.5-50.7 L MEAN CELL VOLUME (test code = MCV) 89.0 fL 81.0-99.0 MEAN CELL HGB (test code = MCH) 28.2 pg 27.0-33.0 N MEAN CELL HGB CONCETRATION (test code = MCHC) 31.7 g/dL 33.0-37.0 L RED CELL DISTRIBUTION WIDTH CV (test code = RDW) 14.5 % 11.5-14.5 N RED CELL DISTRIBUTION WIDTH SD (test code = RDW-SD) 46.9 fL 37.0-54.0 N PLATELET COUNT (test code = PLT) 197 x10 3/uL 150-400 N MEAN PLATELET VOLUME (test c ode = MPV) 9.5 fL 7.0-9.0 H NEUTROPHIL % (test code = NT%) 78.7 % 56.0-77.0 H IMMATURE GRANULOCYTE % (test code = IG%) 0.6 % 0.0-2.0 N LYMPHOCYTE % (test code = LY%) 13.4 % 14.0-32.0 L MONOCYTE % (test code = MO%) 6.3 % 4.8-9.0 N EOSINOPHIL % (test code = EO%) 0.8 % 0.3-3.7 N BASOPHIL % (test code = BA%) 0.2 % 0.0-2.0 N NUCLEATED RBC % (test code = NRBC%) 0.0 % 0-0 N NEUTROPHIL # (test code = NT#) 9.96 x10 3/uL 2.0-7.6 H IMMATURE GRANULOCYTE # (test code = IG#) 0.08 x10 3/uL 0.00-0.03 H LYMPHOCYTE # (test code = LY#) 1.69 x10 3/uL 1.0-3.8 N MONOCYTE # (test code = MO#) 0.79 x10 3/uL 0.1-0.8 N EOSINOPHIL # (test code = EO#) 0.10 x10 3/uL 0.0-0.2 N BASOPHIL # (test code = BA#) 0.02 x10 3/uL 0.0-0.2 N NUCLEATED RBC # (test code = NRBC#) 0.00 x10 3/uL 0.0-0.1 N MANUAL DIFF REQUIRED (test c ode = MDIFF) NO GLUCOSE [id number] 20:22:00* Test Item Value Reference Range Interpretation Comme [facility] GLUCOSE BEDSIDE (test code = GLUBED) 81 MG/DL 70-110 N Performed by cer tified splicer operator at [facility] GLUCOSE [id number] 17:07:00* Test Item Value Reference Range Interpretation Comme [facility] GLUCOSE BEDSIDE (test code = GLUBED) 157 MG/DL 70-110 H Performed by cer tified splicer operator at [facility] [id number] 11:37:00* Test Item Value Reference Range Interpretation Comme nts PREALBUMIN (test code = PREALB) < 5.0 mg/dL 16.0-40.0 L GLUCOSE [id number] 10:52:00* Test Item Value Reference Range Interpretation Comme nts GLUCOSE BEDSIDE (test code = GLUBED) 105 MG/DL 70-110 N Performed by cer tified splicer operator at [facility] GLUCOSE [id number] 09:23:00* Test Item Value Reference Range Interpretation Comme nts GLUCOSE BEDSIDE (test code = GLUBED) 70 MG/DL 70-110 N Performed by cer tified splicer operator at [facility] GLUCOSE [id number] 08:54:00* Test Item Value Reference Range Interpretation Comme nts GLUCOSE BEDSIDE (test code = GLUBED) 70 MG/DL 70-110 N Performed by cer tified splicer operator at [facility] BASIC METABOLIC [id number] 06:45:00* Test Item Value Reference Range Interpretation Comme nts SODIUM (test code = NA) 136 mEq/L 134-147 N POTASSIUM (test code = K) 4.9 mEq/L 3.4-5.0 N CHLORIDE (test code = CL) 109 mEq/L 100-108 H CARBON DIOXIDE (test code = CO2) 23 mEq/l 21-33 N ANION GAP (test code = GAP) 9 0-20 N GLUCOSE (test code = GLU) 90 mg/dL 70-110 BLOOD UREA NITROGEN (test code = BUN) 31 mg/dL 7-18 H GLOMERULAR FILTRATION RATE (test code = GFR) 53.6 90-95 L The Glomerular Filtration Rate is a calculated parameterbased on serum Creatinine, patient age and sex. GFR valuesless than 60 mL/min/1.73 square meters are indicative ofChronic Kidney Disease. Values less than 15 mL/min/1.73square meters indicate Kidney failure. The calculation forGFR is based on the CKD-EPI (202) calculation. This formulais race indifferent and is the recommended formula for GFRby the National Kidney Foundation for Adults.The GFR will not calculate if the sex is unknown or if thepatient's age is <18 years. CREATININE (test code = CREAT) 1.5 mg/dL 0.6-1.3 H CALCIUM (test code = CA) 7.2 mg/dL 8.0-10.5 L [id number] 06:45:00* Test Item Value Reference Range Interpretation Comme nts PHOSPHOROUS (test code = PHOS) 5.2 MG/DL 2.5-4.9 H [id number] 06:45:00* Test Item Value Reference Range Interpretation Comme nts MAGNESIUM (test code = MAG) 1.91 mg/dL 1.80-2.40 N CBC W/AUTO [id number] 05:47:00* Test Item Value Reference Range Interpretation Comme nts WHITE BLOOD CELL (test code = WBC) 14.2 x10 3/uL 4.5-11.0 H RED BLOOD CELL (test code = RBC) 2.50 x10 6/uL 4.00-5.60 L HEMOGLOBIN (test code = HGB) 7.1 g/dL 12.5-16.9 L HEMATOCRIT (test code = HCT) 21.5 % 37.5-50.7 L MEAN CELL VOLUME (test code = MCV) 86.0 fL 81.0-99.0 N MEAN CELL HGB (test code = MCH) 28.4 pg 27.0-33.0 N MEAN CELL HGB CONCETRATION (test code = MCHC) 33.0 g/dL 33.0-37.0 N RED CELL DISTRIBUTION WIDTH CV (test code = RDW) 14.6 % 11.5-14.5 H RED CELL DISTRIBUTION WIDTH SD (test code = RDW-SD) 45.9 fL 37.0-54.0 N PLATELET COUNT (test code = PLT) 212 x10 3/uL 150-400 N MEAN PLATELET VOLUME (test code = MPV) 9.2 fL 7.0-9.0 H NEUTROPHIL % (test code = NT%) 83.2 % 56.0-77.0 H IMMATURE GRANULOCYTE % (test code = IG%) 0.6 % 0.0-2.0 N LYMPHOCYTE % (test code = LY%) 10.0 % 14.0-32.0 L MONOCYTE % (test code = MO%) 5.6 % 4.8-9.0 N EOSINOPHIL % (test code = EO%) 0.5 % 0.3-3.7 N BASOPHIL % (test code = BA%) 0.1 % 0.0-2.0 N NUCLEATED RBC % (test code = NRBC%) 0.0 % 0-0 N NEUTROPHIL # (test code = NT#) 11.78 x10 3/uL 2.0-7.6 H IMMATURE GRANULOCYTE # (test code = IG#) 0.08 x10 3/uL 0.00-0.03 H LYMPHOCYTE # (test code = LY#) 1.42 x10 3/uL 1.0-3.8 N MONOCYTE # (test code = MO#) 0.79 x10 3/uL 0.1-0.8 N EOSINOPHIL # (test code = EO#) 0.07 x10 3/uL 0.0-0.2 N BASOPHIL # (test code = BA#) 0.02 x10 3/uL 0.0-0.2 N NUCLEATED RBC # (test code = NRBC#) 0.00 x10 3/uL 0.0-0.1 N MANUAL DIFF REQUIRED (test code = MDIFF) NO GLUCOSE [id number] 20:27:00* Test Item Value Reference Range Interpretation Comme [facility] GLUCOSE BEDSIDE (test code = GLUBED) 145 MG/DL 70-110 H Performed by cer tified splicer operator at [facility] GLUCOSE [id number] 17:21:00* Test Item Value Reference Range Interpretation Comme [facility] GLUCOSE BEDSIDE (test code = GLUBED) 103 MG/DL 70-110 N Performed by cer tified splicer operator at [facility] [id number] 13:39:00* Test Item Value Reference Range Interpretation Comme [facility] SURGICAL (test code = SR) R UN DATE: 08/28/22 [place] - LAB PAGE 1 RUN TIME: 2419 Specimen Inquiry RUN USER: INTERFACE P ATIENT: KARMA ROWLAND LOC: LEANDRO U #: [id number] AGE/SX: 56/M ROOM: [facility] RE08/18/22REG DR: Wilbert Ramires MD : 63 BED: 1 DIS: STATUS: ADM IN TLOC: SPEC #: [id number] RECD: 08/27/22 STATUS: JC DIEGO #: [id number] JULIENNE: 08/26/22- DR: David uD MD ENTERED: 08/27/22-1017 SP TYPE: SURGICAL OTHR DR: No Primary or Family Physician Self Referred Anthony Curtis MD, Brent J MD Hackney, Jeromy T MD Juarez, Jesus MD Kaul, Kuldip K MD Patel, Snehalkumar A MD Reyhani, Sean X DPM DarekIn Hal MDORDERED: [id number], ANATOMIC SPEC COPIES TO: No Primary or Family Phys[place] [address] [facility] [address] [place] [address] Andrew London MD [address] [place] [address] David Du MD [address] [facility] [place] [address] [email or web address] Nixon Leroy MD [address] [place], [place] [id number] Braxton Chapin MD [address] [facility] [address] [place] [address] CONTINUED ON NEXT PAGE R UN DATE: 08/28/22 [place] - LAB PAGE 2 RUN TIME: 1339 Specimen Inquiry RUN USER: INTERFACE S PEC #: [id number] PATIENT: KARMA ROWLAND #[id number] (Continued) COPIES TO: (Continued) Napoleon Parham MD [address] [facility], [address] [place] [address] Liam Pedersen DPM [address] [facility] [address] [place] [address] [email or web address] Forrest Oswald MD [address] [place] [address] [address] [place] [address] PROCEDURES: [id number] (08/27/22-1017) TISSUES: A. CHIPS - PROSTATE TURP CLINICAL HISTORY SAME FINAL DIAGNOSIS Prostate chips, submitted: Fragments of fibromuscular tissue with abundant acute andchronic inflammation and some necrotic debris; background benign appearing prostate tissue. GROSS DESCRIPTION Received in formalin labeled prostate chips multiple yellow-ramirez tissue fragments weighing1.5 g and measuring 2 cm in aggregate submitted (A)-(B). Technical component performed at [facility],[address] [place] [address], [place] [address] Unless gross only, the diagnosis is based [...] ON NEXT PAGE R UN DATE: 08/28/22 [place] - LAB PAGE 3 RUN TIME: 1339 Specimen Inquiry RUN USER: INTERFACE S PEC #: [id number] PATIENT: KARMA ROWLAND #[id number] (Continued) CLINICAL INFORMATION PROSTATE ABSCESS ------ Signed SIGNATURE ON IESHA PatinoWilfrid 08/28/22 1339 END OF REPORT GLUCOSE [id number] 13:14:00* Test Item Value Reference Range Interpretation Comme [facility] GLUCOSE BEDSIDE (test code = GLUBED) 206 MG/DL 70-110 H Performed by [employer] splicer operator at [facility] GLUCOSE [id number] 12:29:00* Test Item Value Reference Range Interpretation Comme [facility] GLUCOSE BEDSIDE (test code = GLUBED) 185 MG/DL 70-110 H Performed by [employer] splicer operator at [facility] GLUCOSE [id number] 06:34:00* Test Item Value Reference Range Interpretation Comme [facility] GLUCOSE BEDSIDE (test code = GLUBED) 180 MG/DL 70-110 H Performed by [facility] [employer] splicer operator at [facility] COMPREHENSIVE METABOLIC [id number] 05:30:00* Test Item Value Reference Range Interpretation Comme [facility] SODIUM (test code = NA) 137 mEq/L 134-147 N POTASSIUM (test code = K) 5.0 mEq/L 3.4-5.0 N CHLORIDE (test code = CL) 109 mEq/L 100-108 H CARBON DIOXIDE (test code = CO2) 21 mEq/l 21-33 N ANION GAP (test code = GAP) 12 0-20 N GLUCOSE (test code = GLU) 167 mg/dL 70-110 H BLOOD UREA NITROGEN (test code = BUN) 30 mg/dL 7-18 H GLOMERULAR FILTRATION RATE (test code = GFR) 58.3 90-95 L The Glomerular Filtration Rate is a calculated parameterbased on serum Creatinine, patient age and sex. GFR valuesless than 60 mL/min/1.73 square meters are indicative ofChronic Kidney Disease. Values less than 15 mL/min/1.73square meters indicate Kidney failure. The calculation forGFR is based on the CKD-EPI (2020) calculation. This formulais race indifferent and is the recommended formula for GFRby the National Kidney Foundation for Adults.The GFR will not calculate if the sex is unknown or if thepatient's age is <18 years. CREATININE (test code = CREAT) 1.4 mg/dL 0.6-1.3 H TOTAL PROTEIN (test code = PROT) 5.8 g/dL 6.4-8.2 L ALBUMIN (test code = ALB) 1.30 g/dL 3.4-5.0 L CALCIUM (test code = CA) 7.7 mg/dL 8.0-10.5 L BILIRUBIN TOTAL (test code = BILT) 0.40 mg/dL 0.0-1.0 N SGOT/AST (test code = AST) 17 IUnit/L 15-37 N SGPT/ALT (test code = ALT) 9 IUnit/L 30-65 L ALKALINE PHOSPHATASE TOTAL (test code = ALKP) 111 IUnit/L 20-125 N [id number] 05:30:00* Test Item Value Reference Range Interpretation Comme nts PHOSPHOROUS (test code = PHOS) 4.8 MG/DL 2.5-4.9 N [id number] 05:30:00* Test Item Value Reference Range Interpretation Comme nts MAGNESIUM (test code = MAG) 1.89 mg/dL 1.80-2.40 N CALCIUM [id number] 05:30:00* Test Item Value Reference Range Interpretation Comme nts CALCIUM IONIZED (test code = KARLA) 1.12 MMOL/L 1.09-1.30 N CBC W/AUTO [id number] 04:46:00* Test Item Value Reference Range Interpretation Comme nts WHITE BLOOD CELL (test code = WBC) 13.8 x10 3/uL 4.5-11.0 H RED BLOOD CELL (test code = RBC) 2.83 x10 6/uL 4.00-5.60 L HEMOGLOBIN (test code = HGB) 8.0 g/dL 12.5-16.9 L HEMATOCRIT (test code = HCT) 24.0 % 37.5-50.7 L MEAN CELL VOLUME (test code = MCV) 84.8 fL 81.0-99.0 N MEAN CELL HGB (test code = MCH) 28.3 pg 27.0-33.0 N MEAN CELL HGB CONCETRATION (test code = MCHC) 33.3 g/dL 33.0-37.0 N RED CELL DISTRIBUTION WIDTH CV (test code = RDW) 14.6 % 11.5-14.5 H RED CELL DISTRIBUTION WIDTH SD (test code = RDW-SD) 45.1 fL 37.0-54.0 N PLATELET COUNT (test code = PLT) 244 x10 3/uL 150-400 N MEAN PLATELET VOLUME (test code = MPV) 9.2 fL 7.0-9.0 H NEUTROPHIL % (test code = NT%) 86.7 % 56.0-77.0 H IMMATURE GRANULOCYTE % (test code = IG%) 0.5 % 0.0-2.0 N LYMPHOCYTE % (test code = LY%) 8.2 % 14.0-32.0 L MONOCYTE % (test code = MO%) 4.1 % 4.8-9.0 L EOSINOPHIL % (test code = EO%) 0.4 % 0.3-3.7 N BASOPHIL % (test code = BA%) 0.1 % 0.0-2.0 N NUCLEATED RBC % (test code = NRBC%) 0.0 % 0-0 N NEUTROPHIL # (test code = NT#) 11.92 x10 3/uL 2.0-7.6 H IMMATURE GRANULOCYTE # (test code = IG#) 0.07 x10 3/uL 0.00-0.03 H LYMPHOCYTE # (test code = LY#) 1.13 x10 3/uL 1.0-3.8 N MONOCYTE # (test code = MO#) 0.57 x10 3/uL 0.1-0.8 N EOSINOPHIL # (test code = EO#) 0.05 x10 3/uL 0.0-0.2 N BASOPHIL # (test code = BA#) 0.01 x10 3/uL 0.0-0.2 N NUCLEATED RBC # (test code = NRBC#) 0.00 x10 3/uL 0.0-0.1 N MANUAL DIFF REQUIRED (test code = MDIFF) NO - XR FLUOROSCOPY 0-60 [id number] 00:00:00 [facility] : 1965 Sex: MFAX: Wilbert Krause MD [phone] [place]: St: ADM Name: KARMA ROWLAND [facility] : 1965 Age/S: 56/M [address] [place] [address] Unit #: [id number] Loc: G.M325 [place] [address] Phys: Wilbert Ramires MDAcct: [id number] Dis Date: Status: ADM IN PHONE #: [phone] Exam Date: 08/28/2022 1101 FAX #:[phone] Reason: RIGHT TIBFIB AMP EXAMS: CPT CODE: [id number] XR FLUOROSCOPY 0-60 MIN 90699 PROCEDURE INFORMATION: Exam: FL Fluoroscopy, Up to 1 Hour Physician Time; Radiologist Not Present For Fluoroscopy Exam date and time: 08/28/2022 10:51 AM Age: 56 years old Clinical indication: Pain; Pain:Or; Additional info: Right tibfib amp TECHNIQUE: Imaging protocol: Fluoroscopy , up to 1 hour physician or other qualified health health care manager time. This radiologist did not supervise this procedure. Exam supervised by facility personnel. Report for radiation dosage reporting and documentationonly. Other technique: Radiologist was not present during this procedure. COMPARISON: No relevant prior studies available. RADIATION DOSE METRICS: Fluoroscopy time (seconds): seconds= [...] M.D. CC: Wilbert Ramires MD Technologist: RT Kylie(Avinash) Trnscrd Date/Time/By: 08/28/2022 (112) : By: [email or web address] Orig Print D/T: S: 08/28/2022 (112) PAGE 1 Signed Report- OK ORR [id number] 00:00:00 [facility] : 1965 Sex: MName: KARMA ROWLAND [facility] : 1965 Age/S: 56 / M [address] [place] [address] Unit #: [id number] Loc: [facility] [place] [address] Phys: Wilbert Ramires MD Acct: [id number] Dis Date: Status: ADM IN PHONE #: [phone] Exam Date: 08/28/2022 0857 FAX #: [phone] Reason: Left leg swellingEXAMS: CPT CODE: [id number] DUP VEIN UNI/LTD [id number] PROCEDURE INFORMATION: Exam: US Duplex Left LowerExtremity Veins, Limited Exam date and time: 08/28/2022 8:40 AM Age: 56 years old Clinical indication: Left lower extremity edema TECHNIQUE: Imaging protocol: Real-time duplex ultrasound of the left extremity with 2-D fierro scale, color Doppler flow and spectral waveform analysis including responses to compression and other maneuvers (when performed) with image documentation. Limited exam focused onthe left lower extremity veins. COMPARISON: CT ABD [...] fluid collection along the left upper calf probablyrepresenting a small hematoma. No other soft tissue abnormalities are seen. IMPRESSION: 1. No eviden ce of venous thrombosis involving left lower extremity. 2. Approximately 8 x 2 x 1.3 cm complex fluid collection along the left upper calf probably representing a small hematoma. at 0927 Reported and signed by: Roger Parra M.D. CC: Wilbert Ramires MD Technologist: Dave Gaines Trnscb Date/Time: 08/28/2022 (926) [email or web address] Orig Print D/T: S: 08/28/2022 (926) Probe: PAGE 1 Signed Report GLUCOSE [id number] 21:01:00* Test Item Value Reference Range Interpretation Comme nts GLUCOSE BEDSIDE (test code = GLUBED) 87 MG/DL 70-110 N Performed by cer tified splicer operator at [facility] BASIC METABOLIC [id number] 19:03:00* Test Item Value Reference Range Interpretation Comme nts SODIUM (test code = NA) 136 mEq/L 134-147 N POTASSIUM (test code = K) 5.1 mEq/L 3.4-5.0 H CHLORIDE (test code = CL) 109 mEq/L 100-108 H CARBON DIOXIDE (test code = CO2) 20 mEq/l 21-33 L ANION GAP (test code = GAP) 12 0-20 N GLUCOSE (test code = GLU) 161 mg/dL 70-110 H BLOOD UREA NITROGEN (test code = BUN) 30 mg/dL 7-18 H GLOMERULAR FILTRATION RATE (test code = GFR) 70.1 90-95 L The Glomerular Filtration Rate is a calculated parameterbased on serum Creatinine, patient age and sex. GFR valuesless than 60 mL/min/1.73 square meters are indicative ofChronic Kidney Disease. Values less than 15 mL/min/1.73square meters indicate Kidney failure. The calculation forGFR is based on the CKD-EPI (2020) calculation. This formulais race indifferent and is the recommended formula for GFRby the National Kidney Foundation for Adults.The GFR will not calculate if the sex is unknown or if thepatient's age is <18 years. CREATININE (test code = CREAT) 1.2 mg/dL 0.6-1.3 N CALCIUM (test code = CA) 7.5 mg/dL 8.0-10.5 L GLUCOSE [id number] 17:42:00* Test Item Value Reference Range Interpretation Comme nts GLUCOSE BEDSIDE (test code = GLUBED) 148 MG/DL 70-110 H Performed by cer tified splicer operator at [facility] GLUCOSE [id number] 14:51:00* Test Item Value Reference Range Interpretation Comme nts GLUCOSE BEDSIDE (test code = GLUBED) 244 MG/DL 70-110 H Performed by cer tified splicer operator at [facility] GLUCOSE [id number] 08:35:00* Test Item Value Reference Range Interpretation Comme nts GLUCOSE BEDSIDE (test code = GLUBED) 294 MG/DL 70-110 H Performed by cer tified splicer operator at [facility] COMPREHENSIVE METABOLIC [id number] 06:21:00* Test Item Value Reference Range Interpretation Comme nts SODIUM (test code = NA) 137 mEq/L 134-147 N POTASSIUM (test code = K) 5.3 mEq/L 3.4-5.0 H CHLORIDE (test code = CL) 110 mEq/L 100-108 H CARBON DIOXIDE (test code = CO2) 20 mEq/l 21-33 L ANION GAP (test code = GAP) 12 0-20 N GLUCOSE (test code = GLU) 285 mg/dL 70-110 H BLOOD UREA NITROGEN (test code = BUN) 33 mg/dL 7-18 H GLOMERULAR FILTRATION RATE (test code = GFR) 70.1 90-95 L The Glomerular Filtration Rate is a calculated parameterbased on serum Creatinine, patient age and sex. GFR valuesless than 60 mL/min/1.73 square meters are indicative ofChronic Kidney Disease. Values less than 15 mL/min/1.73square meters indicate Kidney failure. The calculation forGFR is based on the CKD-EPI (202) calculation. This formulais race indifferent and is the recommended formula for GFRby the National Kidney Foundation for Adults.The GFR will not calculate if the sex is unknown or if thepatient's age is <18 years. CREATININE (test code = CREAT) 1.2 mg/dL 0.6-1.3 N TOTAL PROTEIN (test code = PROT) 5.7 g/dL 6.4-8.2 L ALBUMIN (test code = ALB) 1.30 g/dL 3.4-5.0 L CALCIUM (test code = CA) 7.2 mg/dL 8.0-10.5 L BILIRUBIN TOTAL (test code = BILT) 0.40 mg/dL 0.0-1.0 N SGOT/AST (test code = AST) 12 IUnit/L 15-37 L SGPT/ALT (test code = ALT) 9 IUnit/L 30-65 L ALKALINE PHOSPHATASE TOTAL (test code = ALKP) 111 IUnit/L 20-125 N . Recollection is necessary.[id number] 06:21:00* Test Item Value Reference Range Interpretation Comme nts PHOSPHOROUS (test code = PHOS) 5.4 MG/DL 2.5-4.9 H . Recollection is necessary.[id number] 06:21:00* Test Item Value Reference Range Interpretation Comme nts MAGNESIUM (test code = MAG) 1.94 mg/dL 1.80-2.40 N . Recollection is necessary.COMPREHENSIVE METABOLIC [id number] 04:43:00* Test Item Value Reference Range Interpretation Comme nts SODIUM (test code = NA) mEq/L 134-147 POTASSIUM (test code = K) mEq/L 3.4-5.0 CHLORIDE (test code = CL) mEq/L 100-108 CARBON DIOXIDE (test code = CO2) mEq/l 21-33 ANION GAP (test code = GAP) 0-20 GLUCOSE (test code = GLU) mg/dL 70-110 BLOOD UREA NITROGEN (test code = BUN) mg/dL 7-18 GLOMERULAR FILTRATION RATE ( test code = GFR) 90-95 CREATININE (test code = CREAT) mg/dL 0.6-1.3 TOTAL PROTEIN (test code = PROT) g/dL 6.4-8.2 ALBUMIN (test code = ALB) g/dL 3.4-5.0 CALCIUM (test code = CA) mg/dL 8.0-10.5 BILIRUBIN TOTAL (test code = BILT) mg/dL 0.0-1.0 SGOT/AST (test code = AST) IUnit/L 15-37 SGPT/ALT (test code = ALT) IUnit/L 30-65 ALKALINE PHOSPHATASE TOTAL ( test code = ALKP) IUnit/L 20-125 [id number] 04:43:00* Test Item Value Reference Range Interpretation Comme nts PHOSPHOROUS (test code = PHOS) MG/DL 2.5-4.9 [id number] 04:43:00* Test Item Value Reference Range Interpretation Comme nts MAGNESIUM (test code = MAG) mg/dL 1.80-2.40 CALCIUM [id number] 04:43:00* Test Item Value Reference Range Interpretation Comme nts CALCIUM IONIZED (test code = KARLA) 1.08 MMOL/L 1.09-1.30 L CBC W/AUTO [id number] 04:43:00* Test Item Value Reference Range Interpretation Comme nts WHITE BLOOD CELL (test code = WBC) 15.9 x10 3/uL 4.5-11.0 H RED BLOOD CELL (test code = RBC) 3.07 x10 6/uL 4.00-5.60 L HEMOGLOBIN (test code = HGB) 8.6 g/dL 12.5-16.9 L HEMATOCRIT (test code = HCT) 25.9 % 37.5-50.7 L MEAN CELL VOLUME (test code = MCV) 84.4 fL 81.0-99.0 N MEAN CELL HGB (test code = MCH) 28.0 pg 27.0-33.0 N MEAN CELL HGB CONCETRATION (test code = MCHC) 33.2 g/dL 33.0-37.0 N RED CELL DISTRIBUTION WIDTH CV (test code = RDW) 14.6 % 11.5-14.5 H RED CELL DISTRIBUTION WIDTH SD (test code = RDW-SD) 45.0 fL 37.0-54.0 N PLATELET COUNT (test code = PLT) 250 x10 3/uL 150-400 N MEAN PLATELET VOLUME (test code = MPV) 9.8 fL 7.0-9.0 H NEUTROPHIL % (test code = NT%) 88.7 % 56.0-77.0 H IMMATURE GRANULOCYTE % (test code = IG%) 0.6 % 0.0-2.0 N LYMPHOCYTE % (test code = LY%) 7.0 % 14.0-32.0 L MONOCYTE % (test code = MO%) 3.3 % 4.8-9.0 L EOSINOPHIL % (test code = EO%) 0.3 % 0.3-3.7 N BASOPHIL % (test code = BA%) 0.1 % 0.0-2.0 N NUCLEATED RBC % (test code = NRBC%) 0.0 % 0-0 N NEUTROPHIL # (test code = NT#) 14.14 x10 3/uL 2.0-7.6 H IMMATURE GRANULOCYTE # (test code = IG#) 0.10 x10 3/uL 0.00-0.03 H LYMPHOCYTE # (test code = LY#) 1.11 x10 3/uL 1.0-3.8 N MONOCYTE # (test code = MO#) 0.52 x10 3/uL 0.1-0.8 N EOSINOPHIL # (test code = EO#) 0.04 x10 3/uL 0.0-0.2 N BASOPHIL # (test code = BA#) 0.02 x10 3/uL 0.0-0.2 N NUCLEATED RBC # (test code = NRBC#) 0.00 x10 3/uL 0.0-0.1 N MANUAL DIFF REQUIRED (test code = MDIFF) NO GLUCOSE [id number] 00:32:00* Test Item Value Reference Range Interpretation Comme nts GLUCOSE BEDSIDE (test code = GLUBED) 166 MG/DL 70-110 H Performed by cer tified splicer operator at [facility] GLUCOSE [id number] 20:52:00* Test Item Value Reference Range Interpretation Comme nts GLUCOSE BEDSIDE (test code = GLUBED) 148 MG/DL 70-110 H Performed by cer tified splicer operator at [facility] GLUCOSE [id number] 17:53:00* Test Item Value Reference Range Interpretation Comme nts GLUCOSE BEDSIDE (test code = GLUBED) 169 MG/DL 70-110 H Performed by [facility]ified splic[facility] operator at [facility] GLUCOSE [id number] 09:17:00* Test Item Value Reference Range Interpretation Comme nts GLUCOSE BEDSIDE (test code = GLUBED) 163 MG/DL 70-110 H Performed by cer tified splicer operator at [facility] COMPREHENSIVE METABOLIC [id number] 06:16:00* Test Item Value Reference Range Interpretation Comme nts SODIUM (test code = NA) 136 mEq/L 134-147 N POTASSIUM (test code = K) 4.8 mEq/L 3.4-5.0 N CHLORIDE (test code = CL) 109 mEq/L 100-108 H CARBON DIOXIDE (test code = CO2) 21 mEq/l 21-33 N ANION GAP (test code = GAP) 11 0-20 N GLUCOSE (test code = GLU) 151 mg/dL 70-110 H BLOOD UREA NITROGEN (test code = BUN) 32 mg/dL 7-18 H GLOMERULAR FILTRATION RATE (test code = GFR) 77.8 90-95 L The Glomerular Filtration Rate is a calculated parameterbased on serum Creatinine, patient age and sex. GFR valuesless than 60 mL/min/1.73 square meters are indicative ofChronic Kidney Disease. Values less than 15 mL/min/1.73square meters indicate Kidney failure. The calculation forGFR is based on the CKD-EPI (202) calculation. This formulais race indifferent and is the recommended formula for GFRby the National Kidney Foundation for Adults.The GFR will not calculate if the sex is unknown or if thepatient's age is <18 years. CREATININE (test code = CREAT) 1.1 mg/dL 0.6-1.3 N TOTAL PROTEIN (test code = PROT) 5.5 g/dL 6.4-8.2 L ALBUMIN (test code = ALB) 1.30 g/dL 3.4-5.0 L CALCIUM (test code = CA) 7.7 mg/dL 8.0-10.5 L BILIRUBIN TOTAL (test code = BILT) 0.50 mg/dL 0.0-1.0 N SGOT/AST (test code = AST) 19 IUnit/L 15-37 SGPT/ALT (test code = ALT) 11 IUnit/L 30-65 L ALKALINE PHOSPHATASE TOTAL (test code = ALKP) 149 IUnit/L 20-125 H [id number] 06:16:00* Test Item Value Reference Range Interpretation Comme nts PHOSPHOROUS (test code = PHOS) 4.6 MG/DL 2.5-4.9 N [id number] 06:16:00* Test Item Value Reference Range Interpretation Comme nts MAGNESIUM (test code = MAG) 1.89 mg/dL 1.80-2.40 N CALCIUM [id number] 06:16:00* Test Item Value Reference Range Interpretation Comme nts CALCIUM IONIZED (test code = KARLA) 1.11 MMOL/L 1.09-1.30 N CBC W/AUTO [id number] 05:58:00* Test Item Value Reference Range Interpretation Comme nts WHITE BLOOD CELL (test code = WBC) 17.7 x10 3/uL 4.5-11.0 H RED BLOOD CELL (test code = RBC) 2.44 x10 6/uL 4.00-5.60 L HEMOGLOBIN (test code = HGB) 6.7 g/dL 12.5-16.9 L HEMATOCRIT (test code = HCT) 20.4 % 37.5-50.7 L MEAN CELL VOLUME (test code = MCV) 83.6 fL 81.0-99.0 N MEAN CELL HGB (test code = MCH) 27.5 pg 27.0-33.0 N MEAN CELL HGB CONCETRATION (test code = MCHC) 32.8 g/dL 33.0-37.0 L RED CELL DISTRIBUTION WIDTH CV (test code = RDW) 14.7 % 11.5-14.5 H RED CELL DISTRIBUTION WIDTH SD (test code = RDW-SD) 44.8 fL 37.0-54.0 N PLATELET COUNT (test code = PLT) 253 x10 3/uL 150-400 N MEAN PLATELET VOLUME (test code = MPV) 9.9 fL 7.0-9.0 H NEUTROPHIL % (test code = NT%) 87.5 % 56.0-77.0 H IMMATURE GRANULOCYTE % (test code = IG%) 0.6 % 0.0-2.0 N LYMPHOCYTE % (test code = LY%) 7.4 % 14.0-32.0 L MONOCYTE % (test code = MO%) 3.9 % 4.8-9.0 L EOSINOPHIL % (test code = EO%) 0.5 % 0.3-3.7 N BASOPHIL % (test code = BA%) 0.1 % 0.0-2.0 N NUCLEATED RBC % (test code = NRBC%) 0.0 % 0-0 N NEUTROPHIL # (test code = NT#) 15.49 x10 3/uL 2.0-7.6 H IMMATURE GRANULOCYTE # (test code = IG#) 0.11 x10 3/uL 0.00-0.03 H LYMPHOCYTE # (test code = LY#) 1.31 x10 3/uL 1.0-3.8 N MONOCYTE # (test code = MO#) 0.69 x10 3/uL 0.1-0.8 N EOSINOPHIL # (test code = EO#) 0.08 x10 3/uL 0.0-0.2 N BASOPHIL # (test code = BA#) 0.01 x10 3/uL 0.0-0.2 N NUCLEATED RBC # (test code = NRBC#) 0.00 x10 3/uL 0.0-0.1 N MANUAL DIFF REQUIRED (test code = MDIFF) NO GLUCOSE [id number] 20:19:00* Test Item Value Reference Range Interpretation Comme [facility] GLUCOSE BEDSIDE (test code = GLUBED) 113 MG/DL 70-110 H Performed by cer tified splicer operator at [facility] GLUCOSE [id number] 17:34:00* Test Item Value Reference Range Interpretation Comme nts GLUCOSE BEDSIDE (test code = GLUBED) 132 MG/DL 70-110 H Performed by ruel hameed splicer operator at [facility] UA RFLX MICR CULT IF [id number] 11:42:00* Test Item Value Reference Range Interpretation Comme nts UA COLOR (test code = COLU) YELLOW YEL/STRAW UA APPEARANCE (test code = APPU) TURBID CLEAR A UA GLUCOSE DIPSTICK (test co de = DGLUU) NEGATIVE NEGATIVE UA BILIRUBIN DIPSTICK (test code = BILU) NEGATIVE NEGATIVE UA KETONE DIPSTICK (test cod e = KETU) NEGATIVE NEGATIVE UA SPECIFIC GRAVITY (test co de = SGU) 1.012 1.005-1.030 N UA BLOOD DIPSTICK (test code = YOSI) 2+ NEGATIVE A UA PH DIPSTICK (test code = STEFFEN) 5.0 5.0-7.0 N UA PROTEIN DIPSTICK (test co de = PROU) 2+ NEGATIVE A UA UROBILINIOGEN DIPSTICK (test code = URO) 0.2 mg/dL 0.2-1.0 UA NITRITE DIPSTICK (test co de = NOE) NEGATIVE NEGATIVE UA LEUKOCYTE ESTERASE DIPSTI CK (test code = LEUU) 3+ NEGATIVE A UA WBC (test code = WBCU) >50 WBC/HPF 0-3 A UA RBC (test code = RBCU) 21-50 RBC/HPF 0-3 UA WBC NO REFLEX (test code = WBCUCL) >50 WBC/HPF 0-3 A UA BACTERIA (test code = BACU) TRACE /HPF NONE SEEN UA SQUAMOUS CELLS (test code = SQU) NONE SEEN /HPF NONE SEEN UA TRANSITIONAL CELLS (test code = TRANU) 3+ /HPF NONE SEEN A UA MUCUS (test code = MUCU) TRACE /LPF NONE SEEN Cath type: Temporary/indwellingIN date: 08/23/22IN time: 0930Elapse time: 47 Hrs 45 MinsIndication for culture: RiskForSepsis-no oth srcSpecimen Description: CLEAN CATCHCREATINE KINASE (CK)2022-08-25 11:39:00* Test Item Value Reference Range Interpretation Comme nts CREATINE KINASE (CK) (test c ode = CK) 17 Units/L 46-171 L [id number] 11:39:00* Test Item Value Reference Range Interpretation Comme nts POTASSIUM (test code = K) 4.5 mEq/L 3.4-5.0 N GLUCOSE [id number] 11:22:00* Test Item Value Reference Range Interpretation Comme nts GLUCOSE BEDSIDE (test code = GLUBED) 143 MG/DL 70-110 H Performed by cer tified splicer operator at [facility] COMPREHENSIVE METABOLIC [id number] 08:57:00* Test Item Value Reference Range Interpretation Comme nts SODIUM (test code = NA) 135 mEq/L 134-147 N POTASSIUM (test code = K) 5.4 mEq/L 3.4-5.0 H CHLORIDE (test code = CL) 110 mEq/L 100-108 H CARBON DIOXIDE (test code = CO2) 19 mEq/l 21-33 L ANION GAP (test code = GAP) 11 0-20 N GLUCOSE (test code = GLU) 162 mg/dL 70-110 H BLOOD UREA NITROGEN (test code = BUN) 25 mg/dL 7-18 H GLOMERULAR FILTRATION RATE (test code = GFR) 77.8 90-95 L The Glomerular Filtration Rate is a calculated parameterbased on serum Creatinine, patient age and sex. GFR valuesless than 60 mL/min/1.73 square meters are indicative ofChronic Kidney Disease. Values less than 15 mL/min/1.73square meters indicate Kidney failure. The calculation forGFR is based on the CKD-EPI (202) calculation. This formulais race indifferent and is the recommended formula for GFRby the National Kidney Foundation for Adults.The GFR will not calculate if the sex is unknown or if thepatient's age is <18 years. CREATININE (test code = CREAT) 1.1 mg/dL 0.6-1.3 N TOTAL PROTEIN (test code = PROT) 5.6 g/dL 6.4-8.2 L ALBUMIN (test code = ALB) 1.30 g/dL 3.4-5.0 L CALCIUM (test code = CA) 7.3 mg/dL 8.0-10.5 L BILIRUBIN TOTAL (test code = BILT) 0.50 mg/dL 0.0-1.0 N SGOT/AST (test code = AST) 40 IUnit/L 15-37 H SGPT/ALT (test code = ALT) 21 IUnit/L 30-65 L ALKALINE PHOSPHATASE TOTAL (test code = ALKP) 159 IUnit/L 20-125 H [id number] 08:57:00* Test Item Value Reference Range Interpretation Comme nts PHOSPHOROUS (test code = PHOS) 4.5 MG/DL 2.5-4.9 N [id number] 08:57:00* Test Item Value Reference Range Interpretation Comme nts MAGNESIUM (test code = MAG) 1.88 mg/dL 1.80-2.40 N CALCIUM [id number] 08:57:00* Test Item Value Reference Range Interpretation Comme nts CALCIUM IONIZED (test code = KARLA) 0.96 MMOL/L 1.09-1.30 L CBC W/AUTO [id number] 08:25:00* Test Item Value Reference Range Interpretation Comme nts WHITE BLOOD CELL (test code = WBC) 17.9 x10 3/uL 4.5-11.0 H RED BLOOD CELL (test code = RBC) 2.64 x10 6/uL 4.00-5.60 L HEMOGLOBIN (test code = HGB) 7.3 g/dL 12.5-16.9 L HEMATOCRIT (test code = HCT) 22.6 % 37.5-50.7 L MEAN CELL VOLUME (test code = MCV) 85.6 fL 81.0-99.0 N MEAN CELL HGB (test code = MCH) 27.7 pg 27.0-33.0 N MEAN CELL HGB CONCETRATION (test code = MCHC) 32.3 g/dL 33.0-37.0 L RED CELL DISTRIBUTION WIDTH CV (test code = RDW) 15.1 % 11.5-14.5 H RED CELL DISTRIBUTION WIDTH SD (test code = RDW-SD) 47.0 fL 37.0-54.0 N PLATELET COUNT (test code = PLT) 226 x10 3/uL 150-400 N MEAN PLATELET VOLUME (test code = MPV) 10.7 fL 7.0-9.0 H NEUTROPHIL % (test code = NT%) 86.3 % 56.0-77.0 H IMMATURE GRANULOCYTE % (test code = IG%) 0.7 % 0.0-2.0 N LYMPHOCYTE % (test code = LY%) 8.1 % 14.0-32.0 L MONOCYTE % (test code = MO%) 4.3 % 4.8-9.0 L EOSINOPHIL % (test code = EO%) 0.5 % 0.3-3.7 N BASOPHIL % (test code = BA%) 0.1 % 0.0-2.0 N NUCLEATED RBC % (test code = NRBC%) 0.0 % 0-0 N NEUTROPHIL # (test code = NT#) 15.44 x10 3/uL 2.0-7.6 H IMMATURE GRANULOCYTE # (test code = IG#) 0.13 x10 3/uL 0.00-0.03 H LYMPHOCYTE # (test code = LY#) 1.45 x10 3/uL 1.0-3.8 N MONOCYTE # (test code = MO#) 0.77 x10 3/uL 0.1-0.8 N EOSINOPHIL # (test code = EO#) 0.09 x10 3/uL 0.0-0.2 N BASOPHIL # (test code = BA#) 0.02 x10 3/uL 0.0-0.2 N NUCLEATED RBC # (test code = NRBC#) 0.00 x10 3/uL 0.0-0.1 N MANUAL DIFF REQUIRED (test code = MDIFF) NO GLUCOSE [id number] 07:56:00* Test Item Value Reference Range Interpretation Comme nts GLUCOSE BEDSIDE (test code = GLUBED) 166 MG/DL 70-110 H Performed by cer tified splicer operator at [facility] GLUCOSE [id number] 21:55:00* Test Item Value Reference Range Interpretation Comme nts GLUCOSE BEDSIDE (test code = GLUBED) 140 MG/DL 70-110 H Performed by cer tified splicer operator at [facility] GLUCOSE [id number] 17:59:00* Test Item Value Reference Range Interpretation Comme nts GLUCOSE BEDSIDE (test code = GLUBED) 136 MG/DL 70-110 H Performed by cer tified splicer operator at [facility] [id number] 17:29:00* Test Item Value Reference Range Interpretation Comme nts VANCOMYCIN (test code = VANCO) 9.6 mcg/mL GLUCOSE [id number] 12:11:00* Test Item Value Reference Range Interpretation Comme nts GLUCOSE BEDSIDE (test code = GLUBED) 129 MG/DL 70-110 H Performed by cer tified splicer operator at [facility] GLUCOSE [id number] 08:28:00* Test Item Value Reference Range Interpretation Comme nts GLUCOSE BEDSIDE (test code = GLUBED) 195 MG/DL 70-110 H Performed by ruel hameed splicer operator at [facility] CBC W/AUTO [id number] 07:32:00* Test Item Value Reference Range Interpretation Comme nts WHITE BLOOD CELL (test code = WBC) 16.3 x10 3/uL 4.5-11.0 H RED BLOOD CELL (test code = RBC) 2.71 x10 6/uL 4.00-5.60 L HEMOGLOBIN (test code = HGB) 7.4 g/dL 12.5-16.9 L HEMATOCRIT (test code = HCT) 22.7 % 37.5-50.7 L MEAN CELL VOLUME (test code = MCV) 83.8 fL 81.0-99.0 N MEAN CELL HGB (test code = MCH) 27.3 pg 27.0-33.0 N MEAN CELL HGB CONCETRATION (test code = MCHC) 32.6 g/dL 33.0-37.0 L RED CELL DISTRIBUTION WIDTH CV (test code = RDW) 14.9 % 11.5-14.5 H RED CELL DISTRIBUTION WIDTH SD (test code = RDW-SD) 45.4 fL 37.0-54.0 N PLATELET COUNT (test code = PLT) 212 x10 3/uL 150-400 N MEAN PLATELET VOLUME (test code = MPV) 10.4 fL 7.0-9.0 H NEUTROPHIL % (test code = NT%) 85.7 % 56.0-77.0 H IMMATURE GRANULOCYTE % (test code = IG%) 1.2 % 0.0-2.0 N LYMPHOCYTE % (test code = LY%) 7.7 % 14.0-32.0 L MONOCYTE % (test code = MO%) 4.7 % 4.8-9.0 L EOSINOPHIL % (test code = EO%) 0.6 % 0.3-3.7 N BASOPHIL % (test code = BA%) 0.1 % 0.0-2.0 N NUCLEATED RBC % (test code = NRBC%) 0.0 % 0-0 N NEUTROPHIL # (test code = NT#) 13.99 x10 3/uL 2.0-7.6 H IMMATURE GRANULOCYTE # (test code = IG#) 0.20 x10 3/uL 0.00-0.03 H LYMPHOCYTE # (test code = LY#) 1.25 x10 3/uL 1.0-3.8 N MONOCYTE # (test code = MO#) 0.76 x10 3/uL 0.1-0.8 N EOSINOPHIL # (test code = EO#) 0.09 x10 3/uL 0.0-0.2 N BASOPHIL # (test code = BA#) 0.02 x10 3/uL 0.0-0.2 N NUCLEATED RBC # (test code = NRBC#) 0.00 x10 3/uL 0.0-0.1 N MANUAL DIFF REQUIRED (test code = MDIFF) NO COMPREHENSIVE METABOLIC [id number] 07:09:00* Test Item Value Reference Range Interpretation Comme nts SODIUM (test code = NA) 133 mEq/L 134-147 L POTASSIUM (test code = K) 4.4 mEq/L 3.4-5.0 N CHLORIDE (test code = CL) 107 mEq/L 100-108 N CARBON DIOXIDE (test code = CO2) 22 mEq/l 21-33 N ANION GAP (test code = GAP) 9 0-20 N GLUCOSE (test code = GLU) 203 mg/dL 70-110 H BLOOD UREA NITROGEN (test code = BUN) 38 mg/dL 7-18 H GLOMERULAR FILTRATION RATE (test code = GFR) 63.7 90-95 L The Glomerular Filtration Rate is a calculated parameterbased on serum Creatinine, patient age and sex. GFR valuesless than 60 mL/min/1.73 square meters are indicative ofChronic Kidney Disease. Values less than 15 mL/min/1.73square meters indicate Kidney failure. The calculation forGFR is based on the CKD-EPI (2020) calculation. This formulais race indifferent and is the recommended formula for GFRby the National Kidney Foundation for Adults.The GFR will not calculate if the sex is unknown or if thepatient's age is <18 years. CREATININE (test code = CREAT) 1.3 mg/dL 0.6-1.3 N TOTAL PROTEIN (test code = PROT) 5.8 g/dL 6.4-8.2 L ALBUMIN (test code = ALB) 1.50 g/dL 3.4-5.0 L CALCIUM (test code = CA) 7.5 mg/dL 8.0-10.5 L BILIRUBIN TOTAL (test code = BILT) 0.60 mg/dL 0.0-1.0 N SGOT/AST (test code = AST) 35 IUnit/L 15-37 N SGPT/ALT (test code = ALT) 18 IUnit/L 30-65 L ALKALINE PHOSPHATASE TOTAL (test code = ALKP) 176 IUnit/L 20-125 H [id number] 07:09:00* Test Item Value Reference Range Interpretation Comme nts PHOSPHOROUS (test code = PHOS) 4.1 MG/DL 2.5-4.9 N [id number] 07:09:00* Test Item Value Reference Range Interpretation Comme nts MAGNESIUM (test code = MAG) 1.80 mg/dL 1.80-2.40 N CALCIUM [id number] 07:09:00* Test Item Value Reference Range Interpretation Comme nts CALCIUM IONIZED (test code = KARLA) 1.09 MMOL/L 1.09-1.30 N GLUCOSE [id number] 03:18:00* Test Item Value Reference Range Interpretation Comme nts GLUCOSE BEDSIDE (test code = GLUBED) 189 MG/DL 70-110 H Performed by cer tified splicer operator at [facility] GLUCOSE [id number] 21:11:00* Test Item Value Reference Range Interpretation Comme nts GLUCOSE BEDSIDE (test code = GLUBED) 161 MG/DL 70-110 H Performed by cer tified splicer operator at [facility] GLUCOSE [id number] 19:43:00* Test Item Value Reference Range Interpretation Comme nts GLUCOSE BEDSIDE (test code = GLUBED) 146 MG/DL 70-110 H Performed by cer tified splicer operator at [facility] GLUCOSE [id number] 16:31:00* Test Item Value Reference Range Interpretation Comme nts GLUCOSE BEDSIDE (test code = GLUBED) 126 MG/DL 70-110 H Performed by cer tified splicer operator at [facility] GLUCOSE [id number] 13:36:00* Test Item Value Reference Range Interpretation Comme nts GLUCOSE BEDSIDE (test code = GLUBED) 102 MG/DL 70-110 N Performed by cer tified splicer operator at [facility] GLUCOSE [id number] 12:40:00* Test Item Value Reference Range Interpretation Comme nts GLUCOSE BEDSIDE (test code = GLUBED) 67 MG/DL 70-110 L Performed by ruel hameed splicer operator at [facility] CBC W/AUTO [id number] 11:30:00* Test Item Value Reference Range Interpretation Comme nts WHITE BLOOD CELL (test code = WBC) 17.6 x10 3/uL 4.5-11.0 H RED BLOOD CELL (test code = RBC) 2.52 x10 6/uL 4.00-5.60 L HEMOGLOBIN (test code = HGB) 6.7 g/dL 12.5-16.9 L HEMATOCRIT (test code = HCT) 20.8 % 37.5-50.7 L MEAN CELL VOLUME (test code = MCV) 82.5 fL 81.0-99.0 N MEAN CELL HGB (test code = MCH) 26.6 pg 27.0-33.0 L MEAN CELL HGB CONCETRATION (test code = MCHC) 32.2 g/dL 33.0-37.0 L RED CELL DISTRIBUTION WIDTH CV (test code = RDW) 15.0 % 11.5-14.5 H RED CELL DISTRIBUTION WIDTH SD (test code = RDW-SD) 45.5 fL 37.0-54.0 N PLATELET COUNT (test code = PLT) 175 x10 3/uL 150-400 N MEAN PLATELET VOLUME (test c ode = MPV) 10.3 fL 7.0-9.0 H NEUTROPHIL % (test code = NT%) % 56.0-77.0 LYMPHOCYTE % (test code = LY%) % 14.0-32.0 NEUTROPHIL # (test code = NT#) x10 3/uL 2.0-7.6 LYMPHOCYTE # (test code = LY#) x10 3/uL 1.0-3.8 MANUAL DIFF REQUIRED (test c ode = MDIFF) YES WBC [id number] 11:30:00* Test Item Value Reference Range Interpretation Comme nts BAND NEUTROPHIL (test code = BAND) 0.0 % 0.0-10.0 N ANISOCYTOSIS (test code = ANISO) NORMAL PLATELET ESTIMATE (test code = PLTEST) Adequate THOUSAND ADEQUATE SEGMENTED NEUTROPHILS (test code = SEG) 89 % 37-69 H LYMPHOCYTE (test code = LYMPH) 8 % 23-55 L MONOCYTE (test code = MON) 2 % 0-10 N MYELOCYTE (test code = MYELO) 1 % 0.0-0.0 H POLYCHROMASIA (test code = POLC) 1+ GLUCOSE [id number] 08:23:00* Test Item Value Reference Range Interpretation Comme nts GLUCOSE BEDSIDE (test code = GLUBED) 120 MG/DL 70-110 H Performed by cer tified splicer operator at [facility] COMPREHENSIVE METABOLIC [id number] 03:59:00* Test Item Value Reference Range Interpretation Comme nts SODIUM (test code = NA) 133 mEq/L 134-147 L POTASSIUM (test code = K) 3.8 mEq/L 3.4-5.0 N CHLORIDE (test code = CL) 105 mEq/L 100-108 N CARBON DIOXIDE (test code = CO2) 19 mEq/l 21-33 L ANION GAP (test code = GAP) 13 0-20 N GLUCOSE (test code = GLU) 155 mg/dL 70-110 H BLOOD UREA NITROGEN (test code = BUN) 45 mg/dL 7-18 H GLOMERULAR FILTRATION RATE (test code = GFR) 53.6 90-95 L The Glomerular Filtration Rate is a calculated parameterbased on serum Creatinine, patient age and sex. GFR valuesless than 60 mL/min/1.73 square meters are indicative ofChronic Kidney Disease. Values less than 15 mL/min/1.73square meters indicate Kidney failure. The calculation forGFR is based on the CKD-EPI (202) calculation. This formulais race indifferent and is the recommended formula for GFRby the National Kidney Foundation for Adults.The GFR will not calculate if the sex is unknown or if thepatient's age is <18 years. CREATININE (test code = CREAT) 1.5 mg/dL 0.6-1.3 H TOTAL PROTEIN (test code = PROT) 5.8 g/dL 6.4-8.2 L ALBUMIN (test code = ALB) 1.60 g/dL 3.4-5.0 L CALCIUM (test code = CA) 6.8 mg/dL 8.0-10.5 L BILIRUBIN TOTAL (test code = BILT) 0.80 mg/dL 0.0-1.0 N SGOT/AST (test code = AST) 36 IUnit/L 15-37 N SGPT/ALT (test code = ALT) 19 IUnit/L 30-65 L ALKALINE PHOSPHATASE TOTAL (test code = ALKP) 163 IUnit/L 20-125 H [id number] 03:59:00* Test Item Value Reference Range Interpretation Comme nts PHOSPHOROUS (test code = PHOS) 4.7 MG/DL 2.5-4.9 [id number] 03:59:00* Test Item Value Reference Range Interpretation Comme nts MAGNESIUM (test code = MAG) 1.71 mg/dL 1.80-2.40 L CALCIUM [id number] 03:59:00* Test Item Value Reference Range Interpretation Comme nts CALCIUM IONIZED (test code = KARLA) 1.06 MMOL/L 1.09-1.30 L [id number] 03:54:00* Test Item Value Reference Range Interpretation Comme nts VANCOMYCIN (test code = VANCO) 15.3 mcg/mL GLUCOSE [id number] 19:53:00* Test Item Value Reference Range Interpretation Comme nts GLUCOSE BEDSIDE (test code = GLUBED) 163 MG/DL 70-110 H Performed by [employer] splicer operator at [facility] GLUCOSE [id number] 16:45:00* Test Item Value Reference Range Interpretation Comme nts GLUCOSE BEDSIDE (test code = GLUBED) 146 MG/DL 70-110 H Performed by [employer] splicer operator at [facility] GLUCOSE [id number] 11:58:00* Test Item Value Reference Range Interpretation Comme nts GLUCOSE BEDSIDE (test code = GLUBED) 92 MG/DL 70-110 N Performed by [employer] splicer operator at [facility] [id number] 09:36:00* Test Item Value Reference Range Interpretation Comme nts VANCOMYCIN (test code = VANCO) 19.7 mcg/mL GLUCOSE [id number] 07:58:00* Test Item Value Reference Range Interpretation Comme nts GLUCOSE BEDSIDE (test code = GLUBED) 76 MG/DL 70-110 N Performed by [employer] splicer operator at [facility] CBC W/AUTO [id number] 06:22:00* Test Item Value Reference Range Interpretation Comme nts WHITE BLOOD CELL (test code = WBC) 19.5 x10 3/uL 4.5-11.0 H RED BLOOD CELL (test code = RBC) 2.61 x10 6/uL 4.00-5.60 L HEMOGLOBIN (test code = HGB) 7.1 g/dL 12.5-16.9 L HEMATOCRIT (test code = HCT) 21.6 % 37.5-50.7 L MEAN CELL VOLUME (test code = MCV) 82.8 fL 81.0-99.0 N MEAN CELL HGB (test code = MCH) 27.2 pg 27.0-33.0 N MEAN CELL HGB CONCETRATION (test code = MCHC) 32.9 g/dL 33.0-37.0 L RED CELL DISTRIBUTION WIDTH CV (test code = RDW) 15.0 % 11.5-14.5 H RED CELL DISTRIBUTION WIDTH SD (test code = RDW-SD) 45.2 fL 37.0-54.0 N PLATELET COUNT (test code = PLT) 128 x10 3/uL 150-400 L MEAN PLATELET VOLUME (test code = MPV) 10.8 fL 7.0-9.0 H NEUTROPHIL % (test code = NT%) 82.1 % 56.0-77.0 H LYMPHOCYTE % (test code = LY%) 9.0 % 14.0-32.0 L NEUTROPHIL # (test code = NT#) 15.98 x10 3/uL 2.0-7.6 H LYMPHOCYTE # (test code = LY#) 1.76 x10 3/uL 1.0-3.8 N MANUAL DIFF REQUIRED (test code = MDIFF) NO SLIDE REVIEW ED, CONSISTENT WITH AUTO DIFF. IMMATURE GRANULOCYTE % (test code = IG%) 3.6 % 0.0-2.0 H MONOCYTE % (test code = MO%) 4.8 % 4.8-9.0 N EOSINOPHIL % (test code = EO%) 0.4 % 0.3-3.7 N BASOPHIL % (test code = BA%) 0.1 % 0.0-2.0 N NUCLEATED RBC % (test code = NRBC%) 0.0 % 0-0 N IMMATURE GRANULOCYTE # (test code = IG#) 0.70 x10 3/uL 0.00-0.03 H MONOCYTE # (test code = MO#) 0.93 x10 3/uL 0.1-0.8 H EOSINOPHIL # (test code = EO#) 0.08 x10 3/uL 0.0-0.2 N BASOPHIL # (test code = BA#) 0.02 x10 3/uL 0.0-0.2 N NUCLEATED RBC # (test code = NRBC#) 0.00 x10 3/uL 0.0-0.1 N COMPREHENSIVE METABOLIC [id number] 06:10:00* Test Item Value Reference Range Interpretation Comme nts SODIUM (test code = NA) 133 mEq/L 134-147 L POTASSIUM (test code = K) 4.1 mEq/L 3.4-5.0 N CHLORIDE (test code = CL) 105 mEq/L 100-108 N CARBON DIOXIDE (test code = CO2) 21 mEq/l 21-33 N ANION GAP (test code = GAP) 11 0-20 N GLUCOSE (test code = GLU) 89 mg/dL 70-110 BLOOD UREA NITROGEN (test code = BUN) 37 mg/dL 7-18 H GLOMERULAR FILTRATION RATE (test code = GFR) 63.7 90-95 L The Glomerular Filtration Rate is a calculated parameterbased on serum Creatinine, patient age and sex. GFR valuesless than 60 mL/min/1.73 square meters are indicative ofChronic Kidney Disease. Values less than 15 mL/min/1.73square meters indicate Kidney failure. The calculation forGFR is based on the CKD-EPI (202) calculation. This formulais race indifferent and is the recommended formula for GFRby the National Kidney Foundation for Adults.The GFR will not calculate if the sex is unknown or if thepatient's age is <18 years. CREATININE (test code = CREAT) 1.3 mg/dL 0.6-1.3 N TOTAL PROTEIN (test code = PROT) 5.6 g/dL 6.4-8.2 L ALBUMIN (test code = ALB) 1.70 g/dL 3.4-5.0 L CALCIUM (test code = CA) 7.2 mg/dL 8.0-10.5 L BILIRUBIN TOTAL (test code = BILT) 0.80 mg/dL 0.0-1.0 SGOT/AST (test code = AST) 30 IUnit/L 15-37 N SGPT/ALT (test code = ALT) 15 IUnit/L 30-65 L ALKALINE PHOSPHATASE TOTAL (test code = ALKP) 171 IUnit/L 20-125 H [id number] 06:10:00* Test Item Value Reference Range Interpretation Comme nts PHOSPHOROUS (test code = PHOS) 3.4 MG/DL 2.5-4.9 [id number] 06:10:00* Test Item Value Reference Range Interpretation Comme nts MAGNESIUM (test code = MAG) 1.70 mg/dL 1.80-2.40 L CALCIUM [id number] 06:10:00* Test Item Value Reference Range Interpretation Comme nts CALCIUM IONIZED (test code = KARLA) 1.00 MMOL/L 1.09-1.30 L - MRI PELVIS W/O [id number] 00:00:00 [facility] : 1965 Sex: MFAX: Wilbert Krause MD [phone] [place]: St: [facility] FAX: David Colvin MD [phone] --- Name: ESTELA ROWLAND [place] : 1965 Age/S: 56/M [address] [place] [address] Unit #: [id number] Loc: [address] [address] Phys: David Du MD Acct: [id number] Dis Date: Status: ADM IN PHONE #: Exam Date: 08/21/20222115 FAX #: [phone] Reason: assess for prostate abscess vs lesion EXAMS: CPT CODE: [id number] MRI PELVIS W/O CON 44300 PROCEDURE INFORMATION: Exam: MR Pelvis Without Contrast [...] No free pelvic fluid. Urinary bladder: No bladderfilling defects or diverticula. Reproductive: Approximately 4.7 x 3.6 x 2.7 cm lobulated focus of liquefaction is identified centered at the level of the left seminal vesicle, corresponding to the area of hypodensity detected by CT. Diffusion sequences could not be obtained due to motion limiting se nsitivity. Mild T2 hyperintense surrounding soft tissue edema is demonstrated. Small caliber rightseminal vesicle without focal lesion. The prostate gland measures roughly 4.5 x 3.6 x 3.5 cm (29 cc) with the left posterolateral peripheral zone inseparable from the described T2 hyperintense collection. Capsule indistinctness is noted at this level. Otherwise grossly preserved transitional zone and right peripheral zone signal. Lymph nodes: No pelvic adenopathy. 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 No joint effusions. No destructive bone lesion. Soft tissues: No inguinal hernia or masses. IMPRESSION: 1. Markedly limited examination by motion artifact abdominal breathing, severely lowering sensitivity and specificity of the study. 2. Roughly 4.7 cm [...] Signed Report (CONTINUED) FAX: Wilbert Krause MD [phone] [place]: St: ADM FAX: David Colvin MD [phone] Name: KARMA ROWLAND [facility] : 1965 Age/S: 56/M [address] [place] [address] Unit #: [id number] Loc: [facility] [place] [address] Phys: David Strange MD Acct: [id number] Dis Date: Status: ADM IN PHONE #: [phone] Exam Date: 08/21/20222115 FAX #: [phone] Reason: assess for prostate abscess vs lesion EXAMS: CPT CODE: [id number] MRI PELVIS W/O CON 06755 (Continued) at 0830 Reported and signed by: Cezar Wakefield M.D. CC: Wilbert Ramires MD; Daivd Du MD Technologist: RT Haile(R)(CT) Trnscrd Date/Time/By: 08/22/2022 (829) : By: TipERR2 Orig Print D/T: S: 08/22/2022 (829) PAGE 2 Signed ReportVANCOMYCIN [id number] 21:01:00* Test Item Value Reference Range Interpretation Comme nts VANCOMYCIN TROUGH (test code = VANCT) 27.2 mcg/mL 10.0-20.0 HH 10-15 mcg/mL - Cellulitis, Urinary Tract Infection. 15-20 mcg/mL - Bacteremia, Infective Endocarditis, Meningitis, Osteomyelitis, Pneumonia, Severe Skin/Soft-Tissue Infection, Spinal Abscess. COMMENTS: Please draw 30 minutes BEFORE giving dose of vancomycinGLUCOSE BEDSIDE 2022-08-21 20:26:00* Test Item Value Reference Range Interpretation Comme nts GLUCOSE BEDSIDE (test code = GLUBED) 112 MG/DL 70-110 H Performed by cer tified splicer operator at [facility] GLUCOSE [id number] 16:36:00* Test Item Value Reference Range Interpretation Comme nts GLUCOSE BEDSIDE (test code = GLUBED) 104 MG/DL 70-110 N Performed by cer tified splicer operator at [facility] GLUCOSE [id number] 14:51:00* Test Item Value Reference Range Interpretation Comme nts GLUCOSE BEDSIDE (test code = GLUBED) > 600 MG/DL 70-110 H Performed b y certified splicer operator at [facility] VANCOMYCIN [id number] 13:52:00* Test Item Value Reference Range Interpretation Comme nts VANCOMYCIN PEAK (test code = VANCP) 30.7 MCG/ML 30-40 N GLUCOSE [id number] 12:23:00* Test Item Value Reference Range Interpretation Comme nts GLUCOSE BEDSIDE (test code = GLUBED) 597 MG/DL 70-110 H Performed by cer tified splicer operator at [facility] GLUCOSE [id number] 11:20:00* Test Item Value Reference Range Interpretation Comme nts GLUCOSE BEDSIDE (test code = GLUBED) 96 MG/DL 70-110 N Performed by cer tified splicer operator at [facility] GLUCOSE [id number] 08:13:00* Test Item Value Reference Range Interpretation Comme nts GLUCOSE BEDSIDE (test code = GLUBED) 123 MG/DL 70-110 H Performed by cer tified splicer operator at [facility] CBC W/AUTO [id number] 06:04:00* Test Item Value Reference Range Interpretation Comme nts WHITE BLOOD CELL (test code = WBC) 19.0 x10 3/uL 4.5-11.0 H RED BLOOD CELL (test code = RBC) 2.78 x10 6/uL 4.00-5.60 L HEMOGLOBIN (test code = HGB) 7.4 g/dL 12.5-16.9 L HEMATOCRIT (test code = HCT) 23.0 % 37.5-50.7 L MEAN CELL VOLUME (test code = MCV) 82.7 fL 81.0-99.0 N MEAN CELL HGB (test code = MCH) 26.6 pg 27.0-33.0 L MEAN CELL HGB CONCETRATION (test code = MCHC) 32.2 g/dL 33.0-37.0 L RED CELL DISTRIBUTION WIDTH CV (test code = RDW) 15.0 % 11.5-14.5 H RED CELL DISTRIBUTION WIDTH SD (test code = RDW-SD) 45.7 fL 37.0-54.0 N PLATELET COUNT (test code = PLT) 155 x10 3/uL 150-400 N MEAN PLATELET VOLUME (test c ode = MPV) 10.1 fL 7.0-9.0 H NEUTROPHIL % (test code = NT%) % 56.0-77.0 LYMPHOCYTE % (test code = LY%) % 14.0-32.0 NEUTROPHIL # (test code = NT#) x10 3/uL 2.0-7.6 LYMPHOCYTE # (test code = LY#) x10 3/uL 1.0-3.8 MANUAL DIFF REQUIRED (test c ode = MDIFF) YES WBC [id number] 06:04:00* Test Item Value Reference Range Interpretation Comme nts BAND NEUTROPHIL (test code = BAND) 11.8 % 0.0-10.0 H ANISOCYTOSIS (test code = ANISO) 2+ PLATELET ESTIMATE (test code = PLTEST) Adequate THOUSAND ADEQUATE SEGMENTED NEUTROPHILS (test code = SEG) 79.1 % 37-69 H LYMPHOCYTE (test code = LYMPH) 3.6 % 23-55 L MONOCYTE (test code = MON) 4.6 % 0-10 N BASOPHIL (test code = BASO) 0.9 % 0.0-2.0 N POLYCHROMASIA (test code = POLC) 3+ MACROCYTOSIS (test code = MACR) 2+ PLATELET MORPHOLOGY (test code = PLTMORPH) LARGE PLATELETS COMPREHENSIVE METABOLIC [id number] 05:23:00* Test Item Value Reference Range Interpretation Comme nts SODIUM (test code = NA) 134 mEq/L 134-147 N POTASSIUM (test code = K) 3.5 mEq/L 3.4-5.0 N CHLORIDE (test code = CL) 106 mEq/L 100-108 N CARBON DIOXIDE (test code = CO2) 22 mEq/l 21-33 N ANION GAP (test code = GAP) 10 0-20 N GLUCOSE (test code = GLU) 120 mg/dL 70-110 H BLOOD UREA NITROGEN (test code = BUN) 37 mg/dL 7-18 H GLOMERULAR FILTRATION RATE (test code = GFR) 70.1 90-95 L The Glomerular Filtration Rate is a calculated parameterbased on serum Creatinine, patient age and sex. GFR valuesless than 60 mL/min/1.73 square meters are indicative ofChronic Kidney Disease. Values less than 15 mL/min/1.73square meters indicate Kidney failure. The calculation forGFR is based on the CKD-EPI (202) calculation. This formulais race indifferent and is the recommended formula for GFRby the National Kidney Foundation for Adults.The GFR will not calculate if the sex is unknown or if thepatient's age is <18 years. CREATININE (test code = CREAT) 1.2 mg/dL 0.6-1.3 N TOTAL PROTEIN (test code = PROT) 5.5 g/dL 6.4-8.2 L ALBUMIN (test code = ALB) 1.90 g/dL 3.4-5.0 L CALCIUM (test code = CA) 7.4 mg/dL 8.0-10.5 L BILIRUBIN TOTAL (test code = BILT) 0.60 mg/dL 0.0-1.0 N SGOT/AST (test code = AST) 31 IUnit/L 15-37 N SGPT/ALT (test code = ALT) 18 IUnit/L 30-65 L ALKALINE PHOSPHATASE TOTAL (test code = ALKP) 172 IUnit/L 20-125 H [id number] 05:23:00* Test Item Value Reference Range Interpretation Comme nts PHOSPHOROUS (test code = PHOS) 2.6 MG/DL 2.5-4.9 N [id number] 05:23:00* Test Item Value Reference Range Interpretation Comme nts MAGNESIUM (test code = MAG) 1.65 mg/dL 1.80-2.40 L CALCIUM [id number] 05:23:00* Test Item Value Reference Range Interpretation Comme nts CALCIUM IONIZED (test code = KARLA) 1.02 MMOL/L 1.09-1.30 L - MRI LOW EXT W/O CONT [id number] 00:00:00 [facility] : 1965 Sex: MFAX: Wilbert Krause MD [phone] [place]: St: [facility] FAX: Andrew London MD Name: KARMA ROWLAND [facility] : 1965 Age/S: 56/M [address] [place] [address] Unit #: [id number] Loc: G.M[address] [place] [address] Phys: Andrew London MD Acct: [id number] Dis Date: Status: ADM IN PHONE #: [phone] Exam Date: 2115 FAX #: [phone] Reason: osteomyelitis EXAMS: CPT CODE: [id number] MRI LOW EXT W/[place] [address] PROCEDURE INFORMATION: Exam: MR Right Lower Extremity [...] along the medial and lateral soft tissues ofthe hindfoot are seen. Multifocal geographic areas of [...] talofibular, and calcaneofibular ligaments are intact. Syndesmotic ligaments are intact. Moderate-severe inflammatory signal of the circumferential soft tissues about the ankle extending along the dorsum of the foot is seen. Dorsal skin blister of the forefoot is seen measuring approximately 1.2 x 1.9 x 0.6 cm. Lobulated, ill-defined fluid collection in the plantar musculature of [...] dorsal skin blister of the forefoot. at 1358 Reported and signed by: Abel Austin M.D. PAGE 1 Signed Report (CONTINUED) FAX: Wilbert Krause [facility] [phone] [place]: St: ADM FAX: Andrew London MD Name: KARMA ROWLAND [facility] : 1965 Age/S: 56/M [address] [place] [address] Bl Unit #: [id number] Loc: G.M325 [place] [address] Phys: Andrew London MD Acct: [id number] Dis Date: Status: ADM IN PHONE #: [phone] Exam Date: 08/21/20222115 FAX #: [phone] Reason: osteomyelitis EXAMS: CPT CODE: [id number] MRI LOW EXT W/[place] [address] (Continued) CC: Wilbert Ramires MD; Andrew London MD Technologist: Guero Hernandez RT(R)(CT) Trnscrd Date/Time/By: 08/21/2022 (7042) : By: TipSBL Orig Print D/T: S: 08/21/2022 (7282) PAGE 2 Signed ReportVANCOMYCIN [id number] 23:25:00* Test Item Value Reference Range Interpretation Comme nts VANCOMYCIN PEAK (test code = VANCP) 36.0 MCG/ML 30-40 N COMMENTS: Please draw one hour AFTER THE END of vancomycin infusionGLUCOSE [id number] 21:23:00* Test Item Value Reference Range Interpretation Comme nts GLUCOSE BEDSIDE (test code = GLUBED) 123 MG/DL 70-110 H Performed by cer tified splicer operator at [facility] GLUCOSE [id number] 16:48:00* Test Item Value Reference Range Interpretation Comme nts GLUCOSE BEDSIDE (test code = GLUBED) 201 MG/DL 70-110 H Performed by cer tified splicer operator at [facility] [id number] 14:38:00* Test Item Value Reference Range Interpretation Comme nts MAGNESIUM (test code = MAG) 2.05 mg/dL 1.80-2.40 N CALCIUM [id number] 14:38:00* Test Item Value Reference Range Interpretation Comme nts CALCIUM IONIZED (test code = KARLA) 1.04 MMOL/L 1.09-1.30 L COMPREHENSIVE METABOLIC [id number] 14:38:00* Test Item Value Reference Range Interpretation Comme nts SODIUM (test code = NA) 137 mEq/L 134-147 N POTASSIUM (test code = K) 3.7 mEq/L 3.4-5.0 N CHLORIDE (test code = CL) 107 mEq/L 100-108 N CARBON DIOXIDE (test code = CO2) 20 mEq/l 21-33 L ANION GAP (test code = GAP) 14 0-20 N GLUCOSE (test code = GLU) 212 mg/dL 70-110 H BLOOD UREA NITROGEN (test code = BUN) 44 mg/dL 7-18 H GLOMERULAR FILTRATION RATE (test code = GFR) 70.1 90-95 L The Glomerular Filtration Rate is a calculated parameterbased on serum Creatinine, patient age and sex. GFR valuesless than 60 mL/min/1.73 square meters are indicative ofChronic Kidney Disease. Values less than 15 mL/min/1.73square meters indicate Kidney failure. The calculation forGFR is based on the CKD-EPI (202) calculation. This formulais race indifferent and is the recommended formula for GFRby the National Kidney Foundation for Adults.The GFR will not calculate if the sex is unknown or if thepatient's age is <18 years. CREATININE (test code = CREAT) 1.2 mg/dL 0.6-1.3 N TOTAL PROTEIN (test code = PROT) 5.7 g/dL 6.4-8.2 L ALBUMIN (test code = ALB) 2.00 g/dL 3.4-5.0 L CALCIUM (test code = CA) 7.3 mg/dL 8.0-10.5 L BILIRUBIN TOTAL (test code = BILT) 0.60 mg/dL 0.0-1.0 N SGOT/AST (test code = AST) 51 IUnit/L 15-37 H SGPT/ALT (test code = ALT) 22 IUnit/L 30-65 L ALKALINE PHOSPHATASE TOTAL (test code = ALKP) 178 IUnit/L 20-125 H [id number] 14:38:00* Test Item Value Reference Range Interpretation Comme nts PHOSPHOROUS (test code = PHOS) 3.4 MG/DL 2.5-4.9 N GLUCOSE [id number] 11:18:00* Test Item Value Reference Range Interpretation Comme nts GLUCOSE BEDSIDE (test code = GLUBED) 173 MG/DL 70-110 H Performed by cer tified splicer operator at [facility] CBC W/AUTO [id number] 11:03:00* Test Item Value Reference Range Interpretation Comme nts WHITE BLOOD CELL (test code = WBC) 22.8 x10 3/uL 4.5-11.0 H RED BLOOD CELL (test code = RBC) 2.63 x10 6/uL 4.00-5.60 L HEMOGLOBIN (test code = HGB) 7.1 g/dL 12.5-16.9 L HEMATOCRIT (test code = HCT) 21.3 % 37.5-50.7 L MEAN CELL VOLUME (test code = MCV) 81.0 fL 81.0-99.0 N MEAN CELL HGB (test code = MCH) 27.0 pg 27.0-33.0 N MEAN CELL HGB CONCETRATION (test code = MCHC) 33.3 g/dL 33.0-37.0 N RED CELL DISTRIBUTION WIDTH CV (test code = RDW) 14.7 % 11.5-14.5 H RED CELL DISTRIBUTION WIDTH SD (test code = RDW-SD) 43.4 fL 37.0-54.0 N PLATELET COUNT (test code = PLT) 190 x10 3/uL 150-400 N MEAN PLATELET VOLUME (test code = MPV) 10.0 fL 7.0-9.0 H NEUTROPHIL % (test code = NT%) 87.2 % 56.0-77.0 H LYMPHOCYTE % (test code = LY%) 4.8 % 14.0-32.0 L NEUTROPHIL # (test code = NT#) 19.90 x10 3/uL 2.0-7.6 H LYMPHOCYTE # (test code = LY#) 1.10 x10 3/uL 1.0-3.8 N MANUAL DIFF REQUIRED (test code = MDIFF) NO SLIDE REVIEW ED, CONSISTENT WITH AUTO DIFF. IMMATURE GRANULOCYTE % (test code = IG%) 4.9 % 0.0-2.0 H MONOCYTE % (test code = MO%) 2.9 % 4.8-9.0 L EOSINOPHIL % (test code = EO%) 0.0 % 0.3-3.7 L BASOPHIL % (test code = BA%) 0.2 % 0.0-2.0 N NUCLEATED RBC % (test code = NRBC%) 0.0 % 0-0 N IMMATURE GRANULOCYTE # (test code = IG#) 1.12 x10 3/uL 0.00-0.03 H MONOCYTE # (test code = MO#) 0.66 x10 3/uL 0.1-0.8 N EOSINOPHIL # (test code = EO#) 0.00 x10 3/uL 0.0-0.2 N BASOPHIL # (test code = BA#) 0.04 x10 3/uL 0.0-0.2 N NUCLEATED RBC # (test code = NRBC#) 0.00 x10 3/uL 0.0-0.1 N GLUCOSE [id number] 08:10:00* Test Item Value Reference Range Interpretation Comme nts GLUCOSE BEDSIDE (test code = GLUBED) 192 MG/DL 70-110 H Performed by cer tified splicer operator at [facility] GLUCOSE [id number] 08:10:00* Test Item Value Reference Range Interpretation Comme nts GLUCOSE BEDSIDE (test code = GLUBED) 206 MG/DL 70-110 H Performed by cer tified splicer operator at [facility] GLUCOSE [id number] 06:40:00* Test Item Value Reference Range Interpretation Comme nts GLUCOSE BEDSIDE (test code = GLUBED) 198 MG/DL 70-110 H Performed by cer tified splicer operator at [facility] GLUCOSE [id number] 03:14:00* Test Item Value Reference Range Interpretation Comme nts GLUCOSE BEDSIDE (test code = GLUBED) 195 MG/DL 70-110 H Performed by cer tified splicer operator at [facility] GLUCOSE [id number] 03:14:00* Test Item Value Reference Range Interpretation Comme nts GLUCOSE BEDSIDE (test code = GLUBED) 181 MG/DL 70-110 H Performed by cer tified splicer operator at [facility] GLUCOSE [id number] 03:14:00* Test Item Value Reference Range Interpretation Comme nts GLUCOSE BEDSIDE (test code = GLUBED) 182 MG/DL 70-110 H Performed by cer tified splicer operator at [facility] GLUCOSE [id number] 03:14:00* Test Item Value Reference Range Interpretation Comme nts GLUCOSE BEDSIDE (test code = GLUBED) 191 MG/DL 70-110 H Performed by cer tified splicer operator at [facility] PSA TOTAL/[id number] 03:08:00* Test Item Value Reference Range Interpretation Comme nts PSA FREE (test code = PSAF) 0.04 ng/mL N/A Bassem ECLIA meth odology. PSA TOTAL (test code = PSAT) 0.9 ng/mL 0.0-4.0 Bassem ECLIA methodology.According to the [place] [employer], Serum PSAshould decrease and remain at undetectable levels afterradical prostatectomy. The AUA defines biochemicalrecurrence as an initial PSA value 0.2 ng/mL or greaterfollowed by a subsequent confirmatory PSA value 0.2 ng/mLor greater. Values obtained with different assay methods orkits cannot be used interchangeably. Results cannot beinterpreted as absolute evidence of the presence or absenceof malignant disease. % FREE PSA (test code = PSA%) 4.4 % See_Comment The table below lists the probability of prostate cancer formen with non-suspicious OG results and total PSA between4 and 10 ng/mL, by patient age (Hi et al, MARIPOSA 1998,279:1542). % Free PSA 50-64 yr 65-75 yr 0.00-10.00% 56% 55% 10.01-15.00% 24% 35% 15.01-20.00% 17% 23% 20.01-25.00% 10% 20% >25.00% 5% 9%Please note: Hi et al did not make specific recommendations regarding the use of percent free PSA for any other population of men.Performed At: [facility] [id number] Savage Castro MD Ph:[phone] [Automated message] The system which generated this result transmitted reference range: (). The reference range was not used to interpret this result as normal/abnormal. RENAL FUNCTION [id number] 01:04:00* Test Item Value Reference Range Interpretation Comme nts SODIUM (test code = NA) 132 mEq/L 134-147 L POTASSIUM (test code = K) 3.7 mEq/L 3.4-5.0 N CHLORIDE (test code = CL) 107 mEq/L 100-108 N CARBON DIOXIDE (test code = CO2) 21 mEq/l 21-33 N ANION GAP (test code = GAP) 8 0-20 N GLUCOSE (test code = GLU) 184 mg/dL 70-110 H BLOOD UREA NITROGEN (test code = BUN) 41 mg/dL 7-18 H GLOMERULAR FILTRATION RATE (test code = GFR) 70.1 90-95 L The Glomerular Filtration Rate is a calculated parameterbased on serum Creatinine, patient age and sex. GFR valuesless than 60 mL/min/1.73 square meters are indicative ofChronic Kidney Disease. Values less than 15 mL/min/1.73square meters indicate Kidney failure. The calculation forGFR is based on the CKD-EPI (2020) calculation. This formulais race indifferent and is the recommended formula for GFRby the National Kidney Foundation for Adults.The GFR will not calculate if the sex is unknown or if thepatient's age is <18 years. CREATININE (test code = CREAT) 1.2 mg/dL 0.6-1.3 N ALBUMIN (test code = ALB) 1.70 g/dL 3.4-5.0 L CALCIUM (test code = CA) 7.1 mg/dL 8.0-10.5 L PHOSPHOROUS (test code = PHOS) 3.3 MG/DL 2.5-4.9 N COMMENTS: Every 6 hours until anion gap </= 12 mEq/L, then every morning [id number] 01:04:00* Test Item Value Reference Range Interpretation Comme nts MAGNESIUM (test code = MAG) 2.09 mg/dL 1.80-2.40 N COMMENTS: Every 6 hours until anion gap </= 12 mEq/L, then every morningHGB HCT 2022-08-19 23:52:00* Test Item Value Reference Range Interpretation Comme nts HEMOGLOBIN (test code = HGB) 7.0 g/dL 12.5-16.9 L HEMATOCRIT (test code = HCT) 21.8 % 37.5-50.7 L GLUCOSE [id number] 23:02:00* Test Item Value Reference Range Interpretation Comme nts GLUCOSE BEDSIDE (test code = GLUBED) 165 MG/DL 70-110 H Performed by cer tified splicer operator at [facility] GLUCOSE [id number] 23:02:00* Test Item Value Reference Range Interpretation Comme nts GLUCOSE BEDSIDE (test code = GLUBED) 209 MG/DL 70-110 H Performed by cer tified splicer operator at [facility] GLUCOSE [id number] 20:27:00* Test Item Value Reference Range Interpretation Comme nts GLUCOSE BEDSIDE (test code = GLUBED) 218 MG/DL 70-110 H Performed by cer tified splicer operator at [facility] CBC W/AUTO [id number] 17:47:00* Test Item Value Reference Range Interpretation Comme nts WHITE BLOOD CELL (test code = WBC) 20.3 x10 3/uL 4.5-11.0 H RED BLOOD CELL (test code = RBC) 2.57 x10 6/uL 4.00-5.60 L HEMOGLOBIN (test code = HGB) 7.1 g/dL 12.5-16.9 L HEMATOCRIT (test code = HCT) 20.9 % 37.5-50.7 L MEAN CELL VOLUME (test code = MCV) 81.3 fL 81.0-99.0 N MEAN CELL HGB (test code = MCH) 27.6 pg 27.0-33.0 N MEAN CELL HGB CONCETRATION (test code = MCHC) 34.0 g/dL 33.0-37.0 N RED CELL DISTRIBUTION WIDTH CV (test code = RDW) 14.3 % 11.5-14.5 N RED CELL DISTRIBUTION WIDTH SD (test code = RDW-SD) 42.3 fL 37.0-54.0 N PLATELET COUNT (test code = PLT) 197 x10 3/uL 150-400 N MEAN PLATELET VOLUME (test code = MPV) 10.2 fL 7.0-9.0 H NEUTROPHIL % (test code = NT%) 88.7 % 56.0-77.0 H LYMPHOCYTE % (test code = LY%) 3.8 % 14.0-32.0 L NEUTROPHIL # (test code = NT#) 17.97 x10 3/uL 2.0-7.6 H LYMPHOCYTE # (test code = LY#) 0.76 x10 3/uL 1.0-3.8 L MANUAL DIFF REQUIRED (test code = MDIFF) NO SLIDE REVIEW ED, CONSISTENT WITH AUTO DIFF. IMMATURE GRANULOCYTE % (test code = IG%) 3.5 % 0.0-2.0 H MONOCYTE % (test code = MO%) 3.7 % 4.8-9.0 L EOSINOPHIL % (test code = EO%) 0.0 % 0.3-3.7 L BASOPHIL % (test code = BA%) 0.3 % 0.0-2.0 N NUCLEATED RBC % (test code = NRBC%) 0.0 % 0-0 N IMMATURE GRANULOCYTE # (test code = IG#) 0.71 x10 3/uL 0.00-0.03 H MONOCYTE # (test code = MO#) 0.74 x10 3/uL 0.1-0.8 N EOSINOPHIL # (test code = EO#) 0.00 x10 3/uL 0.0-0.2 N BASOPHIL # (test code = BA#) 0.07 x10 3/uL 0.0-0.2 N NUCLEATED RBC # (test code = NRBC#) 0.00 x10 3/uL 0.0-0.1 N GLUCOSE [id number] 17:38:00* Test Item Value Reference Range Interpretation Comme nts GLUCOSE BEDSIDE (test code = GLUBED) 219 MG/DL 70-110 H Performed by cer zari splicer operator at [facility] RENAL FUNCTION [id number] 17:21:00* Test Item Value Reference Range Interpretation Comme nts SODIUM (test code = NA) 133 mEq/L 134-147 L POTASSIUM (test code = K) 3.6 mEq/L 3.4-5.0 N CHLORIDE (test code = CL) 105 mEq/L 100-108 N CARBON DIOXIDE (test code = CO2) 21 mEq/l 21-33 N ANION GAP (test code = GAP) 10 0-20 N GLUCOSE (test code = GLU) 247 mg/dL 70-110 H BLOOD UREA NITROGEN (test code = BUN) 45 mg/dL 7-18 H GLOMERULAR FILTRATION RATE (test code = GFR) 70.1 90-95 L The Glomerular Filtration Rate is a calculated parameterbased on serum Creatinine, patient age and sex. GFR valuesless than 60 mL/min/1.73 square meters are indicative ofChronic Kidney Disease. Values less than 15 mL/min/1.73square meters indicate Kidney failure. The calculation forGFR is based on the CKD-EPI (202) calculation. This formulais race indifferent and is the recommended formula for GFRby the National Kidney Foundation for Adults.The GFR will not calculate if the sex is unknown or if thepatient's age is <18 years. CREATININE (test code = CREAT) 1.2 mg/dL 0.6-1.3 N ALBUMIN (test code = ALB) 1.40 g/dL 3.4-5.0 L CALCIUM (test code = CA) 7.6 mg/dL 8.0-10.5 L PHOSPHOROUS (test code = PHOS) 3.0 MG/DL 2.5-4.9 COMMENTS: Every 6 hours until anion gap </= 12 mEq/L, then every morning [id number] 17:21:00* Test Item Value Reference Range Interpretation Comme nts MAGNESIUM (test code = MAG) 2.03 mg/dL 1.80-2.40 N COMMENTS: Every 6 hours until anion gap </= 12 mEq/L, then every morningUA RFLX MICR CULT IF [id number] 16:51:00* Test Item Value Reference Range Interpretation Comme nts UA COLOR (test code = COLU) YELLOW YEL/STRAW UA APPEARANCE (test code = APPU) SL CLOUDY CLEAR UA GLUCOSE DIPSTICK (test co de = DGLUU) 3+ NEGATIVE A UA BILIRUBIN DIPSTICK (test code = BILU) NEGATIVE NEGATIVE UA KETONE DIPSTICK (test cod e = KETU) NEGATIVE NEGATIVE UA SPECIFIC GRAVITY (test co de = SGU) 1.013 1.005-1.030 N UA BLOOD DIPSTICK (test code = YOSI) 2+ NEGATIVE A UA PH DIPSTICK (test code = STEFFEN) 5.0 5.0-7.0 N UA PROTEIN DIPSTICK (test co de = PROU) 1+ NEGATIVE A UA UROBILINIOGEN DIPSTICK (t est code = URO) 0.2 mg/dL 0.2-1.0 UA NITRITE DIPSTICK (test co de = NOE) NEGATIVE NEGATIVE UA LEUKOCYTE ESTERASE DIPSTI CK (test code = LEUU) 3+ NEGATIVE A UA WBC (test code = WBCU) 21-50 WBC/HPF 0-3 A UA RBC (test code = RBCU) 4-10 RBC/HPF 0-3 UA WBC NO REFLEX (test code = WBCUCL) 21-50 WBC/HPF 0-3 A UA BACTERIA (test code = BACU) TRACE /HPF NONE SEEN UA SQUAMOUS CELLS (test code = SQU) 0-5 /HPF NONE SEEN UA MUCUS (test code = MUCU) TRACE /LPF NONE SEEN Indication for culture: RiskForSepsis-no oth srcSpecimen Description: Clean CatchGLUCOSE [id number] 16:12:00* Test Item Value Reference Range Interpretation Comme nts GLUCOSE BEDSIDE (test code = GLUBED) 232 MG/DL 70-110 H Performed by cer tified splicer operator at [facility] GLUCOSE [id number] 15:20:00* Test Item Value Reference Range Interpretation Comme nts GLUCOSE BEDSIDE (test code = GLUBED) 307 MG/DL 70-110 H Performed by cer tified splicer operator at [facility] GLUCOSE [id number] 13:53:00* Test Item Value Reference Range Interpretation Comme nts GLUCOSE BEDSIDE (test code = GLUBED) 340 MG/DL 70-110 H Performed by cer tified splicer operator at [facility] GLUCOSE [id number] 13:53:00* Test Item Value Reference Range Interpretation Comme nts GLUCOSE BEDSIDE (test code = GLUBED) 363 MG/DL 70-110 H Performed by cer tified splicer operator at [facility] GLUCOSE [id number] 12:46:00* Test Item Value Reference Range Interpretation Comme nts GLUCOSE BEDSIDE (test code = GLUBED) 326 MG/DL 70-110 H Performed by cer tified splicer operator at [facility] RENAL FUNCTION [id number] 11:45:00* Test Item Value Reference Range Interpretation Comme nts SODIUM (test code = NA) 130 mEq/L 134-147 L POTASSIUM (test code = K) 3.6 mEq/L 3.4-5.0 N CHLORIDE (test code = CL) 107 mEq/L 100-108 N CARBON DIOXIDE (test code = CO2) 22 mEq/l 21-33 N ANION GAP (test code = GAP) 5 0-20 N GLUCOSE (test code = GLU) 315 mg/dL 70-110 H BLOOD UREA NITROGEN (test code = BUN) 39 mg/dL 7-18 H GLOMERULAR FILTRATION RATE (test code = GFR) 77.8 90-95 L The Glomerular Filtration Rate is a calculated parameterbased on serum Creatinine, patient age and sex. GFR valuesless than 60 mL/min/1.73 square meters are indicative ofChronic Kidney Disease. Values less than 15 mL/min/1.73square meters indicate Kidney failure. The calculation forGFR is based on the CKD-EPI (202) calculation. This formulais race indifferent and is the recommended formula for GFRby the National Kidney Foundation for Adults.The GFR will not calculate if the sex is unknown or if thepatient's age is <18 years. CREATININE (test code = CREAT) 1.1 mg/dL 0.6-1.3 N ALBUMIN (test code = ALB) 1.50 g/dL 3.4-5.0 L CALCIUM (test code = CA) 7.6 mg/dL 8.0-10.5 L PHOSPHOROUS (test code = PHOS) 2.2 MG/DL 2.5-4.9 L COMMENTS: Every 6 hours until anion gap </= 12 mEq/L, then every morning [id number] 11:45:00* Test Item Value Reference Range Interpretation Comme nts MAGNESIUM (test code = MAG) 2.06 mg/dL 1.80-2.40 N COMMENTS: Every 6 hours until anion gap </= 12 mEq/L, then every morningB-TYPE NATRIURETIC [id number] 11:43:00* Test Item Value Reference Range Interpretation Comme nts B-TYPE NATRIURETIC PEPTIDE ( test code = BNP) 96.0 PG/ML 0-100 N TOTAL IRON BINDING [id number] 09:30:00* Test Item Value Reference Range Interpretation Comme [facility] SERUM IRON (test code = IRON) 8 mcg/dL 35-150 L TOTAL IRON BINDING CAPACITY (test code = TIBC) 148 mcg/dL 260-445 L UIBC (test code = UIBC) 140 mcg/dL IRON SATURATION (test code = FESAT) 5.4 % 14-34 L VITAMIN [id number] 09:30:00* Test Item Value Reference Range Interpretation Comme [facility] VITAMIN B12 (test code = VITB12) 5883 pg/mL 193-986 H FOLIC [id number] 09:30:00* Test Item Value Reference Range Interpretation Comme nts FOLIC ACID (test code = FOL) 9.5 ng/mL 3.1-17.5 N [id number] 09:30:00* Test Item Value Reference Range Interpretation Comme nts FERRITIN (test code = COLEMAN) 2429.2 ng/mL 23.9-336.2 H RENAL FUNCTION [id number] 09:05:00* Test Item Value Reference Range Interpretation Comme nts SODIUM (test code = NA) 130 mEq/L 134-147 L POTASSIUM (test code = K) 3.3 mEq/L 3.4-5.0 L CHLORIDE (test code = CL) 103 mEq/L 100-108 N CARBON DIOXIDE (test code = CO2) 20 mEq/l 21-33 L ANION GAP (test code = GAP) 10 0-20 N GLUCOSE (test code = GLU) 322 mg/dL 70-110 H BLOOD UREA NITROGEN (test code = BUN) 42 mg/dL 7-18 H GLOMERULAR FILTRATION RATE (test code = GFR) 70.1 90-95 L The Glomerular Filtration Rate is a calculated parameterbased on serum Creatinine, patient age and sex. GFR valuesless than 60 mL/min/1.73 square meters are indicative ofChronic Kidney Disease. Values less than 15 mL/min/1.73square meters indicate Kidney failure. The calculation forGFR is based on the CKD-EPI (2020) calculation. This formulais race indifferent and is the recommended formula for GFRby the National Kidney Foundation for Adults.The GFR will not calculate if the sex is unknown or if thepatient's age is <18 years. CREATININE (test code = CREAT) 1.2 mg/dL 0.6-1.3 N ALBUMIN (test code = ALB) 1.60 g/dL 3.4-5.0 L CALCIUM (test code = CA) 8.2 mg/dL 8.0-10.5 N PHOSPHOROUS (test code = PHOS) 2.6 MG/DL 2.5-4.9 N COMMENTS: Every 6 hours until anion gap </= 12 mEq/L, then every morning [id number] 09:05:00* Test Item Value Reference Range Interpretation Comme nts MAGNESIUM (test code = MAG) 2.13 mg/dL 1.80-2.40 N COMMENTS: Every 6 hours until anion gap </= 12 mEq/L, then every morningGLUCOSE [id number] 08:16:00* Test Item Value Reference Range Interpretation Comme nts GLUCOSE BEDSIDE (test code = GLUBED) 292 MG/DL 70-110 H Performed by cer zari splicer operator at [facility] COMPREHENSIVE METABOLIC [id number] 05:28:00* Test Item Value Reference Range Interpretation Comme nts SODIUM (test code = NA) 130 mEq/L 134-147 L POTASSIUM (test code = K) 3.0 mEq/L 3.4-5.0 L CHLORIDE (test code = CL) 102 mEq/L 100-108 N CARBON DIOXIDE (test code = CO2) 22 mEq/l 21-33 N ANION GAP (test code = GAP) 10 0-20 N GLUCOSE (test code = GLU) 359 mg/dL 70-110 H BLOOD UREA NITROGEN (test code = BUN) 43 mg/dL 7-18 H GLOMERULAR FILTRATION RATE (test code = GFR) 63.7 90-95 L The Glomerular Filtration Rate is a calculated parameterbased on serum Creatinine, patient age and sex. GFR valuesless than 60 mL/min/1.73 square meters are indicative ofChronic Kidney Disease. Values less than 15 mL/min/1.73square meters indicate Kidney failure. The calculation forGFR is based on the CKD-EPI (2020) calculation. This formulais race indifferent and is the recommended formula for GFRby the National Kidney Foundation for Adults.The GFR will not calculate if the sex is unknown or if thepatient's age is <18 years. CREATININE (test code = CREAT) 1.3 mg/dL 0.6-1.3 N TOTAL PROTEIN (test code = PROT) 5.6 g/dL 6.4-8.2 L ALBUMIN (test code = ALB) 1.50 g/dL 3.4-5.0 L CALCIUM (test code = CA) 7.7 mg/dL 8.0-10.5 L BILIRUBIN TOTAL (test code = BILT) 0.60 mg/dL 0.0-1.0 SGOT/AST (test code = AST) 27 IUnit/L 15-37 SGPT/ALT (test code = ALT) 13 IUnit/L 30-65 L ALKALINE PHOSPHATASE TOTAL (test code = ALKP) 150 IUnit/L 20-125 H [id number] 05:28:00* Test Item Value Reference Range Interpretation Comme nts PHOSPHOROUS (test code = PHOS) 2.9 MG/DL 2.5-4.9 N [id number] 05:28:00* Test Item Value Reference Range Interpretation Comme nts MAGNESIUM (test code = MAG) 2.13 mg/dL 1.80-2.40 N GLUCOSE [id number] 05:23:00* Test Item Value Reference Range Interpretation Comme nts GLUCOSE BEDSIDE (test code = GLUBED) 332 MG/DL 70-110 H Performed by cer tified splicer operator at [facility] [id number] 04:57:00* Test Item Value Reference Range Interpretation Comme nts HGBA1C% (test code = HGBA1C%) > 14.0 %A1C 4.8-6.0 H CBC W/AUTO [id number] 04:24:00* Test Item Value Reference Range Interpretation Comme nts WHITE BLOOD CELL (test code = WBC) 21.3 x10 3/uL 4.5-11.0 H RED BLOOD CELL (test code = RBC) 2.80 x10 6/uL 4.00-5.60 L HEMOGLOBIN (test code = HGB) 7.6 g/dL 12.5-16.9 L HEMATOCRIT (test code = HCT) 22.3 % 37.5-50.7 L MEAN CELL VOLUME (test code = MCV) 79.6 fL 81.0-99.0 L MEAN CELL HGB (test code = MCH) 27.1 pg 27.0-33.0 N MEAN CELL HGB CONCETRATION (test code = MCHC) 34.1 g/dL 33.0-37.0 N RED CELL DISTRIBUTION WIDTH CV (test code = RDW) 14.0 % 11.5-14.5 N RED CELL DISTRIBUTION WIDTH SD (test code = RDW-SD) 40.9 fL 37.0-54.0 N PLATELET COUNT (test code = PLT) 227 x10 3/uL 150-400 N MEAN PLATELET VOLUME (test code = MPV) 9.9 fL 7.0-9.0 H NEUTROPHIL % (test code = NT%) 89.9 % 56.0-77.0 H LYMPHOCYTE % (test code = LY%) 4.3 % 14.0-32.0 L NEUTROPHIL # (test code = NT#) 19.17 x10 3/uL 2.0-7.6 H LYMPHOCYTE # (test code = LY#) 0.91 x10 3/uL 1.0-3.8 L MANUAL DIFF REQUIRED (test code = MDIFF) NO SLIDE REVIEW ED, CONSISTENT WITH AUTO DIFF. IMMATURE GRANULOCYTE % (test code = IG%) 2.4 % 0.0-2.0 H MONOCYTE % (test code = MO%) 3.1 % 4.8-9.0 L EOSINOPHIL % (test code = EO%) 0.0 % 0.3-3.7 L BASOPHIL % (test code = BA%) 0.3 % 0.0-2.0 N NUCLEATED RBC % (test code = NRBC%) 0.0 % 0-0 N IMMATURE GRANULOCYTE # (test code = IG#) 0.51 x10 3/uL 0.00-0.03 H MONOCYTE # (test code = MO#) 0.67 x10 3/uL 0.1-0.8 N EOSINOPHIL # (test code = EO#) 0.01 x10 3/uL 0.0-0.2 N BASOPHIL # (test code = BA#) 0.07 x10 3/uL 0.0-0.2 N NUCLEATED RBC # (test code = NRBC#) 0.00 x10 3/uL 0.0-0.1 N COMPREHENSIVE METABOLIC [id number] 04:15:00* Test Item Value Reference Range Interpretation Comme nts SODIUM (test code = NA) mEq/L 134-147 POTASSIUM (test code = K) mEq/L 3.4-5.0 CHLORIDE (test code = CL) mEq/L 100-108 CARBON DIOXIDE (test code = CO2) mEq/l 21-33 ANION GAP (test code = GAP) 0-20 GLUCOSE (test code = GLU) mg/dL 70-110 BLOOD UREA NITROGEN (test code = BUN) mg/dL 7-18 GLOMERULAR FILTRATION RATE ( test code = GFR) 90-95 CREATININE (test code = CREAT) mg/dL 0.6-1.3 TOTAL PROTEIN (test code = PROT) g/dL 6.4-8.2 ALBUMIN (test code = ALB) g/dL 3.4-5.0 CALCIUM (test code = CA) mg/dL 8.0-10.5 BILIRUBIN TOTAL (test code = BILT) mg/dL 0.0-1.0 SGOT/AST (test code = AST) IUnit/L 15-37 SGPT/ALT (test code = ALT) IUnit/L 30-65 ALKALINE PHOSPHATASE TOTAL ( test code = ALKP) IUnit/L 20-125 [id number] 04:15:00* Test Item Value Reference Range Interpretation Comme nts PHOSPHOROUS (test code = PHOS) MG/DL 2.5-4.9 [id number] 04:15:00* Test Item Value Reference Range Interpretation Comme nts MAGNESIUM (test code = MAG) mg/dL 1.80-2.40 CALCIUM [id number] 04:15:00* Test Item Value Reference Range Interpretation Comme nts CALCIUM IONIZED (test code = KARLA) 1.07 MMOL/L 1.09-1.30 L GLUCOSE [id number] 01:14:00* Test Item Value Reference Range Interpretation Comme nts GLUCOSE BEDSIDE (test code = GLUBED) 296 MG/DL 70-110 H Performed by cer zari splicer operator at [facility] - DUP LE ART [id number]/[id number] 00:00:00 [facility] : 1965 Sex: MName: KARMA ROWLAND [facility] : 1965 Age/S: 56 / M [address] [place] [address] Unit #: [id number] Loc: [place] [address] Phys: Wilbert Ramires MD Acct: [id number] Dis Date: Status: ADM IN PHONE #: [phone] Exam Date: 08/19/2022 0950 FAX #: [phone] Reason: right LE gas gangrene EXAMS: CPT CODE: [id number] [facility] LE ART UNI/LTD [id number] PROCEDURE INFORMATION: Exam: US Duplex RightLower Extremity Arteries Or Arterial Bypass Grafts Exam date and time: 08/19/2022 9:25 AM Age: 56 years old Clinical indication: Condition or disease and screening exam; Pre op debridement; Other: Rlegas gangrene; Additional info: Right le gas gangrene TECHNIQUE: Imaging protocol: Right Real-time duplex scan of the arteries or arterial bypass grafts of the right lower extremity with 2-D fierro scale, color Doppler flow and spectral waveform analysis. Images documented and saved. COMPARISON: CT LOWER EXTRM W/O C RT 08/18/2022 6:29 AM FINDINGS: Right common femoral artery: The right common femoralartery demonstrates triphasic waveforms, 92 cm/s. Right superficial femoral artery: The right superficial femoral artery demonstrates triphasic waveforms, 117-123 cm/s. Right popliteal artery: The right popliteal artery demonstrates triphasic waveforms, 85 cm/s. Right calf/foot arteries: The right posterior tibial artery demonstrates triphasic waveforms, 115 cm/s. The right dorsalis pedis artery demonstrates triphasic waveforms, 39 cm/s. IMPRESSION: No sonographic evidence for flow- limiting stenosis in the right lower extremity arterial system. at 1056 Reported and signed by: Abraham Ross M.D. CC: Wilbert Jones chnologist: Ruth Phillips Trnsc[facility] Date/Time: 08/19/2022 (4051) Dilip.SG9 PAGE 1 Signed ReportGLUCOSE [id number] 23:47:00* Test Item Value Reference Range Interpretation Comme nts GLUCOSE BEDSIDE (test code = GLUBED) 265 MG/DL 70-110 H Performed by cer zari splicer operator at [facility] RENAL FUNCTION [id number] 23:19:00* Test Item Value Reference Range Interpretation Comme nts SODIUM (test code = NA) 129 mEq/L 134-147 L POTASSIUM (test code = K) 3.3 mEq/L 3.4-5.0 L CHLORIDE (test code = CL) 102 mEq/L 100-108 N CARBON DIOXIDE (test code = CO2) 20 mEq/l 21-33 L ANION GAP (test code = GAP) 10 0-20 N GLUCOSE (test code = GLU) 296 mg/dL 70-110 H BLOOD UREA NITROGEN (test code = BUN) 44 mg/dL 7-18 H GLOMERULAR FILTRATION RATE (test code = GFR) 63.7 90-95 L The Glomerular Filtration Rate is a calculated parameterbased on serum Creatinine, patient age and sex. GFR valuesless than 60 mL/min/1.73 square meters are indicative ofChronic Kidney Disease. Values less than 15 mL/min/1.73square meters indicate Kidney failure. The calculation forGFR is based on the CKD-EPI (2020) calculation. This formulais race indifferent and is the recommended formula for GFRby the National Kidney Foundation for Adults.The GFR will not calculate if the sex is unknown or if thepatient's age is <18 years. CREATININE (test code = CREAT) 1.3 mg/dL 0.6-1.3 N ALBUMIN (test code = ALB) 1.70 g/dL 3.4-5.0 L CALCIUM (test code = CA) 7.7 mg/dL 8.0-10.5 L PHOSPHOROUS (test code = PHOS) 2.8 MG/DL 2.5-4.9 COMMENTS: Every 6 hours until anion gap </= 12 mEq/L, then every morning [id number] 23:19:00* Test Item Value Reference Range Interpretation Comme [facility] MAGNESIUM (test code = MAG) 2.13 mg/dL 1.80-2.40 N COMMENTS: Every 6 hours until anion gap </= 12 mEq/L, then every morningGLUCOSE [id number] 20:07:00* Test Item Value Reference Range Interpretation Comme [facility] GLUCOSE BEDSIDE (test code = GLUBED) 226 MG/DL 70-110 H Performed by cer tified splicer operator at [facility] GLUCOSE [id number] 20:07:00* Test Item Value Reference Range Interpretation Comme [facility] GLUCOSE BEDSIDE (test code = GLUBED) 223 MG/DL 70-110 H Performed by cer tified splicer operator at [facility] GLUCOSE [id number] 20:07:00* Test Item Value Reference Range Interpretation Comme [facility] GLUCOSE BEDSIDE (test code = GLUBED) 186 MG/DL 70-110 H Performed by cer tified splicer operator at [facility] LIPID PROFILE (CORONARY RISK)2022-08-18 15:54:00* Test Item Value Reference Range Interpretation Comme [facility] TRIGLYCERIDES (test code = TRIG) 161 mg/dL 40-150 H CHOLESTEROL (test code = CHOL) 90 mg/dL <200 CHOLESTEROL/HDL RATIO (test code = CHOLHDL) 4.00 RATIO 3.43-4.97 N RISK ASSOCIATED WITH CHOL/HDL RATIOS: RISK MALE FEMALE1/2 AVERAGE 3.43 3.27AVERAGE 4.97 4.442X AVERAGE 9.55 7.053X AVERAGE 23.39 11.04 NOTE THAT THE REFERENCE VALUE IS RELATEDTO RISK LEVELS RECOMMENDED BY THE NATL.HEART, LUNG, AND BLOOD INST. HDL CHOLESTEROL (test code = HDL) < 20.0 mg/dL 32-72 L LIPOPROTEIN LDL (test code = LDL) 33.0 mg/dL 0-100 N <100 INUIFAZ68 0-129 NEAR OPTIMAL/ABOVE [id number] HIGH>UU=191 VERY HIGH*Guidelines provided by the National Cholesterol EducationProgram Adult Treatment Panel III T4 [id number] 15:54:00* Test Item Value Reference Range Interpretation Comme nts T4 FREE (test code = T4F) 0.7 ng/dL 0.77-1.61 L THYROID STIMULATING [id number] 15:54:00* Test Item Value Reference Range Interpretation Comme nts THYROID STIMULATING HORMONE (test code = TSH) 0.96 0.42-5.47 N Result s in jalen-International Units/mL RENAL FUNCTION [id number] 15:09:00* Test Item Value Reference Range Interpretation Comme nts SODIUM (test code = NA) 131 mEq/L 134-147 L POTASSIUM (test code = K) 3.4 mEq/L 3.4-5.0 N CHLORIDE (test code = CL) 101 mEq/L 100-108 CARBON DIOXIDE (test code = CO2) 24 mEq/l 21-33 ANION GAP (test code = GAP) 9 0-20 N GLUCOSE (test code = GLU) 207 mg/dL 70-110 H BLOOD UREA NITROGEN (test code = BUN) 58 mg/dL 7-18 H GLOMERULAR FILTRATION RATE (test code = GFR) 58.3 90-95 L The Glomerular Filtration Rate is a calculated parameterbased on serum Creatinine, patient age and sex. GFR valuesless than 60 mL/min/1.73 square meters are indicative ofChronic Kidney Disease. Values less than 15 mL/min/1.73square meters indicate Kidney failure. The calculation forGFR is based on the CKD-EPI (2020) calculation. This formulais race indifferent and is the recommended formula for GFRby the National Kidney Foundation for Adults.The GFR will not calculate if the sex is unknown or if thepatient's age is <18 years. CREATININE (test code = CREAT) 1.4 mg/dL 0.6-1.3 H ALBUMIN (test code = ALB) 1.60 g/dL 3.4-5.0 L CALCIUM (test code = CA) 7.8 mg/dL 8.0-10.5 L PHOSPHOROUS (test code = PHOS) 2.2 MG/DL 2.5-4.9 L COMMENTS: Every 6 hours until anion gap </= 12 mEq/L, then every morning [id number] 15:09:00* Test Item Value Reference Range Interpretation Comme nts MAGNESIUM (test code = MAG) 2.09 mg/dL 1.80-2.40 N COMMENTS: Every 6 hours until anion gap </= 12 mEq/L, then every morningGLUCOSE [id number] 14:15:00* Test Item Value Reference Range Interpretation Comme nts GLUCOSE BEDSIDE (test code = GLUBED) 195 MG/DL 70-110 H Performed by cer [employer] splicer operator at [facility] GLUCOSE [id number] 13:20:00* Test Item Value Reference Range Interpretation Comme nts GLUCOSE BEDSIDE (test code = GLUBED) 213 MG/DL 70-110 H Performed by cer [employer] splicer operator at [facility] GLUCOSE [id number] 12:14:00* Test Item Value Reference Range Interpretation Comme nts GLUCOSE BEDSIDE (test code = GLUBED) 201 MG/DL 70-110 H Performed by cer [employer] splicer operator at [facility] GLUCOSE [id number] 11:18:00* Test Item Value Reference Range Interpretation Comme nts GLUCOSE BEDSIDE (test code = GLUBED) 223 MG/DL 70-110 H Performed by cer [employer] splicer operator at [facility] GLUCOSE [id number] 10:19:00* Test Item Value Reference Range Interpretation Comme nts GLUCOSE BEDSIDE (test code = GLUBED) 304 MG/DL 70-110 H Performed by cer [employer] splicer operator at [facility] GLUCOSE [id number] 09:11:00* Test Item Value Reference Range Interpretation Comme nts GLUCOSE BEDSIDE (test code = GLUBED) 405 MG/DL 70-110 H Performed by [employer] splicer operator at [facility] GLUCOSE [id number] 08:34:00* Test Item Value Reference Range Interpretation Comme nts GLUCOSE BEDSIDE (test code = GLUBED) 449 MG/DL 70-110 H Performed by [employer] splicer operator at [facility] RENAL FUNCTION [id number] 06:41:00* Test Item Value Reference Range Interpretation Comme nts SODIUM (test code = NA) 121 mEq/L 134-147 LL Critical result called to ROSIBEL ALEX Aden [employer]KAF at 0640 08/18/22Nurse read back resut and tech confirmed it's correct? Y POTASSIUM (test code = K) 4.1 mEq/L 3.4-5.0 N CHLORIDE (test code = CL) 90 mEq/L 100-108 L CARBON DIOXIDE (test code = CO2) 15 mEq/l 21-33 L ANION GAP (test code = GAP) 20 0-20 N GLUCOSE (test code = GLU) 692 mg/dL 70-110 HH Critical result called to ROSIBEL ALEX Aden Clara.[employer].KAF at 0641 08/18/22Nurse read back resut and tech confirmed it's correct? Y BLOOD UREA NITROGEN (test code = BUN) 62 mg/dL 7-18 H GLOMERULAR FILTRATION RATE (test code = GFR) 46.2 90-95 L The Glomerular Filtration Rate is a calculated parameterbased on serum Creatinine, patient age and sex. GFR valuesless than 60 mL/min/1.73 square meters are indicative ofChronic Kidney Disease. Values less than 15 mL/min/1.73square meters indicate Kidney failure. The calculation forGFR is based on the CKD-EPI (2020) calculation. This formulais race indifferent and is the recommended formula for GFRby the National Kidney Foundation for Adults.The GFR will not calculate if the sex is unknown or if thepatient's age is <18 years. CREATININE (test code = CREAT) 1.7 mg/dL 0.6-1.3 H ALBUMIN (test code = ALB) 1.60 g/dL 3.4-5.0 L CALCIUM (test code = CA) 7.5 mg/dL 8.0-10.5 L PHOSPHOROUS (test code = PHOS) 4.8 MG/DL 2.5-4.9 N COMMENTS: Every 6 hours until anion gap </= 12 mEq/L, then every morning [id number] 06:41:00* Test Item Value Reference Range Interpretation Comme nts MAGNESIUM (test code = MAG) 2.34 mg/dL 1.80-2.40 N COMMENTS: Every 6 hours until anion gap </= 12 mEq/L, then every morningACETONE [id number] 06:41:00* Test Item Value Reference Range Interpretation Comme nts ACETONE QUANT (test code = ACETN) Large - 80-100 mg/dL mg/dL See_Comment [Automated message] The system which generated this result transmitted reference range: Neg - <20. The reference range was not used to interpret this result as normal/abnormal. COMMENTS: Every 6 hours until anion gap </= 12 mEq/L, then every sxkphinISVS8D% 2022-08-18 06:28:00* Test Item Value Reference Range Interpretation Comme nts HGBA1C% (test code = HGBA1C%) 13.4 %A1C 4.8-6.0 H [id number] 03:14:00* Test Item Value Reference Range Interpretation Comme nts SALICYLATE (test code = BANG) 5.6 mg/dL 0.0-20.0 N POC ARTERIAL BLOOD [id number] 03:10:00* Test Item Value Reference Range Interpretation Comme nts POC ARTERIAL BLOOD GAS PH (t est code = POCPHA) 7.309 7.35-7.45 L POC ARTERIAL BLOOD GAS PCO2 (test code = DMOENL9V) 22.3 mmHg 35.0-45 LL POC TCO2 ARTERIAL (test code = POCTCO2) 11.9 POC ARTERIAL BLOOD GAS PO2 ( test code = QOWTU4F) 108.0 mmHg 80-100.0 H POC HCO3 ARTERIAL (test code = EXFLJR2L) 11.2 MMOL/L 22.0-26.0 LL POC BASE EXCESS (test code = POCBEA) -15.1 MMOL/L -4.0-4.0 L POC O2 SATURATION (test code = POCO2S) 97.9 % 90-100 N FIO2 (test code = FIO2A) 21 % PaO2/FiO2 (test code = KYA6IPH3) 514.28 mm/Hg ABG DELIVERY (test code = ANDREA) Room Air ABG SITE (test code = SITEA) R Radial NETO'S TEST (test code = ALLENS) Positive COVID 19 INHOUSE [id number] 03:08:00* Test Item Value Reference Range Interpretation Comme nts COVID 19 INHOUSE AG (test code = [id number]) Negative Negative A negative resul t is presumptive and should be confirmedwith an FDA authorized molecular assay, if necessary forpatient management.A positive result does not rule out co-infections withother pathogens.This test detects both viable (live) and non-viable,SARS-CoV, and SARS-CoV-2. Test performance depends on theamount of virus (antigen) in the sample.This test has not been FDA cleared or approved; the test hasbeen authorized by FDA under an Emergency Use Authorization(EUA) for use by laboratories certified under the CLIA thatmeet the requirements to perform moderate, high or waivedcomplexity tests. INFLUENZA A [id number] 03:06:00* Test Item Value Reference Range Interpretation Comme nts INFLUENZA A (test code = FLUAPCR) Negative Negative INFLUENZA B (test code = FLUBPCR) Negative Negative WBC [id number] 03:04:00* Test Item Value Reference Range Interpretation Comme nts BAND NEUTROPHIL (test code = BAND) 12.7 % 0.0-10.0 H ANISOCYTOSIS (test code = ANISO) 1+ PLATELET ESTIMATE (test code = PLTEST) Adequate THOUSAND ADEQUATE SEGMENTED NEUTROPHILS (test code = SEG) 70.0 % 37-69 H LYMPHOCYTE (test code = LYMPH) 3.7 % 23-55 L MONOCYTE (test code = MON) 9.1 % 0-10 N METAMYELOCYTE (test code = META) 2.7 % 0.0-0.0 H MYELOCYTE (test code = MYELO) 0.9 % 0.0-0.0 H PROMYELOCYTE (test code = PROM) 0.9 % 0-0 H POLYCHROMASIA (test code = POLC) 3+ POIKILOCYTOSIS (test code = POIK) 3+ MACROCYTOSIS (test code = MACR) 1+ PLATELET MORPHOLOGY (test code = PLTMORPH) NORMAL CBC W/AUTO [id number] 03:04:00* Test Item Value Reference Range Interpretation Comme nts WHITE BLOOD CELL (test code = WBC) 26.5 x10 3/uL 4.5-11.0 H RED BLOOD CELL (test code = RBC) 3.36 x10 6/uL 4.00-5.60 L HEMOGLOBIN (test code = HGB) 9.0 g/dL 12.5-16.9 L HEMATOCRIT (test code = HCT) 28.3 % 37.5-50.7 L MEAN CELL VOLUME (test code = MCV) 84.2 fL 81.0-99.0 N MEAN CELL HGB (test code = MCH) 26.8 pg 27.0-33.0 L MEAN CELL HGB CONCETRATION (test code = MCHC) 31.8 g/dL 33.0-37.0 L RED CELL DISTRIBUTION WIDTH CV (test code = RDW) 14.5 % 11.5-14.5 N RED CELL DISTRIBUTION WIDTH SD (test code = RDW-SD) 44.0 fL 37.0-54.0 N PLATELET COUNT (test code = PLT) 355 x10 3/uL 150-400 N MEAN PLATELET VOLUME (test c ode = MPV) 9.9 fL 7.0-9.0 H NEUTROPHIL % (test code = NT%) % 56.0-77.0 LYMPHOCYTE % (test code = LY%) % 14.0-32.0 NEUTROPHIL # (test code = NT#) x10 3/uL 2.0-7.6 LYMPHOCYTE # (test code = LY#) x10 3/uL 1.0-3.8 MANUAL DIFF REQUIRED (test c ode = MDIFF) YES LACTIC [id number] 02:44:00* Test Item Value Reference Range Interpretation Comme nts LACTIC ACID (test code = LACT) 1.2 mmol/L 0.4-1.9 N BASIC METABOLIC [id number] 02:44:00* Test Item Value Reference Range Interpretation Comme nts SODIUM (test code = NA) 115 mEq/L 134-147 LL Critical [email or web address] [id number]/22urse read back resut and tech confirmed it's correct? Y POTASSIUM (test code = K) 4.4 mEq/L 3.4-5.0 N CHLORIDE (test code = CL) 84 mEq/L 100-108 L CARBON DIOXIDE (test code = CO2) 14 mEq/l 21-33 L ANION GAP (test code = GAP) 21 0-20 H GLUCOSE (test code = GLU) 709 mg/dL 70-110 HH Critical result called to [facility] at 0244 03/27/23Nurse read back resut and tech confirmed it's correct? Y BLOOD UREA NITROGEN (test code = BUN) 60 mg/dL 7-18 H GLOMERULAR FILTRATION RATE (test code = GFR) 40.4 90-95 L The Glomerular Filtration Rate is a calculated parameterbased on serum Creatinine, patient age and sex. GFR valuesless than 60 mL/min/1.73 square meters are indicative ofChronic Kidney Disease. Values less than 15 mL/min/1.73square meters indicate Kidney failure. The calculation forGFR is based on the CKD-EPI (2020) calculation. This formulais race indifferent and is the recommended formula for GFRby the National Kidney Foundation for Adults.The GFR will not calculate if the sex is unknown or if thepatient's age is <18 years. CREATININE (test code = CREAT) 1.9 mg/dL 0.6-1.3 H CALCIUM (test code = CA) 8.5 mg/dL 8.0-10.5 N HEPATIC FUNCTION [id number] 02:44:00* Test Item Value Reference Range Interpretation Comme nts TOTAL PROTEIN (test code = PROT) 6.4 g/dL 6.4-8.2 N ALBUMIN (test code = ALB) 1.80 g/dL 3.4-5.0 L BILIRUBIN TOTAL (test code = BILT) 0.40 mg/dL 0.0-1.0 N BILIRUBIN DIRECT (test code = BILD) 0.20 MG/DL 0.0-0.30 N BILIRUBIN INDIRECT (test cod e = BILIND) 0.20 MG/DL SGOT/AST (test code = AST) 14 IUnit/L 15-37 L SGPT/ALT (test code = ALT) 10 IUnit/L 30-65 L ALKALINE PHOSPHATASE TOTAL ( test code = ALKP) 157 IUnit/L 20-125 H [id number] 02:44:00* Test Item Value Reference Range Interpretation Comme nts LIPASE (test code = LIP) 24 U/L 13-57 N TROP-I HIGH [id number] 02:44:00* Test Item Value Reference Range Interpretation Comme nts TROP-I HIGH SENSITIVITY (test code = TROPIHS) 4 ng/L 0-54 N CAUTION: Units o f the current test methodology (ng/L) differfrom the prior test methodology (ng/mL) by a factor of 1000. 99th Percentile Upper Reference Limit (URL): Females: 34 ng/LMales: 54 ng/L In order to distinguish acute elevations of high sensitivitytroponin from other clinical conditions, the FourthUniversal Definition of Myocardial Infarction stressesclinical assessment and the demonstration of a rise and/orfall in serial troponin results above the URL. These results were obtained using [employer] IM TnIHreagent. Results from different methodologies should not becompared to one another as quantitative results and URLs mayvary by method. - CT LOWER EXTRM W/O C [id number] 00:00:00 [facility] : 1965 Sex: MName: KARMA ROWLAND [facility] : 1965 Age/S: 56 / M [address] [place] [address] Unit #: [id number] Loc: [place] [address] Phys: Andrew London MD Acct: [id number] Dis Date: Status: ADM IN PHONE #: [phone] Exam Date: 08/18/2022 0645 FAX #: [phone] Reason: soft tissue infection Report Has Been Amended EXAMS: CPT CODE: [id number] [place]TR[place] W/[place] [address] Addendum - 08/18/2022 SIGNED 08/18/2022 ADDENDUM: [id number] CT/CTLEWOCRT Notes: Critical findings were discussed with [...] Exam focused on the foot. Radiation optimization: All CT scans at this [...] known CT and 0 known cardiac nuclear med icine studies in the 12 months prior to the current study. COMPARISON: CR XR FOOT 3 + V RT 08/18/2022 2:35 AM FINDINGS: Limitations: Assessment of the soft tissues and vasculature may be limited by the lack of intravenous contrast. Bones/joints: There is no fracture, dislocation or bone destructivelesion. There are degenerative changes in the mid and hindfoot. Soft tissues: There is generalized subcutaneous edema in the foot and visualized leg. There are multifocal areas of superficial blistering. There is no discrete walled-off fluid collection within limitations of noncontrast technique. There is mottled soft tissue gas in the visualized subcutaneous tissues, dorsal and plantar PAGE 1 Signed Report (CONTINUED) Name: KARMA ROWLAND [facility] : 1965 Age/S: 56 / M [address] [place] [address] Unit #: [id number] Loc: [place] [address] Phys: Andrew London MD Acct: [id number] Dis Date: Status: ADM IN PHONE #: [phone] Exam Date: 08/18/2022 0645 FAX #: [phone] Reason: soft tissue infection Report Has Been Amended EXAMS: CPT CODE: [id number] [place] LOWER EXTRMW/[place] [address] (Continued) compartments of the foot with extension along the extensor and flexor tendon sheaths in the visualized leg. Notes: Call report initiated at 08/18/2022 8:25 AM CDT. IMPRESSION: Extensive soft tissue edema with mottled gas in the subcutaneous and intramuscular compartments of the foot compatible with gas-forming infection. Disease extends into the visualized distal leg. at 0826 Reported and signed by: Kendall Dorantes M.D. CC: Wilbert Ramires MD; Andrew London MD Technologist:RT Tricia(R)(CT) CTDI: DLP: Trnscb Date/Time: 08/18/2022 (825) t.CELINE.KWL Orig Print D/T: S: 08/18/2022 (826) PAGE 2 Signed Report- XR FOOT 3 + V [id number] 00:00:00 [facility] : 1965 Sex: MFAX: Angi Peña [place]: [address] St: REG Name: KARMA ROWLAND [facility] : 1965 Age/S: 56/M [address] [place] [address] Unit #: [id number] Loc: [place] [address] Phys: Angi Peña Acct: [id number] Dis Date: Status: REG ER PHONE #: [phone] Exam Date: 08/18/2022237 FAX #: Reason: DIABETIC FOOT WOUND R/O OSTEOMYLITIS EXAMS: CPT CODE: [id number] XR FOOT 3 + V RT [address]6824 PROCEDURE INFORMATION: Exam: XR Right Foot Exam date and time: 08/18/2022 2:35 AM Age: 56 years old Clinical indication: Other: Diabetic foot wound R/O osteomylitis TECHNIQUE: Imaging protocol: Radiologic exam of the right foot. Views: 3 or more views. AP Oblique Lateral COMPARISON: No relevant prior studies available. FINDINGS: Bones/joints: No osseous erosion or destruction [...] acute osseous findings. No convincing evidence for osteomyelitis. MRI is more sensitive for detecting osteomyelitis. at 0357 Reported and signed by: Jay Ladd M.D. CC:Angi Peña Technologist: RT Kush(Avinash) Trnscrd Date/Time/By: 08/18/2022 (035) : By: [email or web address] Orig Print D/T: S: 08/18/2022 (0359) PAGE 1 Signed Report- XR CHEST 2 [id number] 00:00[facility]00 [facility] 1965 Sex: MFAX: Angi Peña [place]: St: REG Name: KARMA ROWLAND [facility] : 1965 Age/S: 56/M [address] [place] [address] Unit #: [id number] Loc: [place] [address] Phys: Angi Peña Acct: [id number] Dis Date: Status: [facility] ER PHONE #: [phone] Exam Date: 08/18/2022200 FAX #: [phone] Reason: FEVER PAIN EXAMS: CPT CODE: [id number] XR CHEST 2 V 08276 PROCEDURE INFORMATION: Exam: XR Chest Exam date and time: 08/18/2022 1:58 AM Age: 56 years old Clinical indication: Fever and other: Fever pain TECHNIQUE: Imaging protocol: Radiologic exam of the chest. Views: 2 views. PA and Lateral COMPARISON: No relevant prior studies available. FINDINGS: Lungs: Well inflated lungs with ill-defined somewhat nodular opacity measuring 3.2 cm laterally in the right mid lung suspicious for rounded pneumonia given provided history, but underlying neoplasm can not be excluded. Pleural spaces:Unremarkable. No pleural effusion. No pneumothorax. Heart/Mediastinum: Normal without cardiomegaly or mass. Bones/joints: No acute osseous abnormality. IMPRESSION: Ill-defined somewhat nodular opacity measuring 3.2 cm laterally in the right mid lung suspicious for rounded pneumonia given provided history, but underlying neoplasm can not be excluded. Followup radiographs are recommended after appropriate treatment in order to document complete resolution and exclude an underlying process or neopl asm. at 0317 Reported and signed by: Dom Adams M.D. CC: Angi Peña Technologist: Nicolle Rosas RT(R) Trnscrd Date/Time/By: 08/18/2022 (316) : By: [email or web address] [facility] Print D/T: S: 08/18/2022 (316) PAGE 1 Signed Report- CT ABD PELVIS W/[id number] 00:00:00 [facility] : 1965 Sex: MName: KARMA ROWLAND [facility] : 1965 Age/S: 56 / M [address] [place] [address] Unit #: [id number] Loc: [place], [place] [address] Phys: Angi Peña Acct: [id number] Dis Date: Status: ADM IN PHONE #: [phone] Exam Date: 08/18/2022 033 FAX #: [phone] Reason: FEVER PAIN EXAMS: CPT CODE: [id number] CT ABD PELVIS W/CONT 47308 PROCEDURE INFORMATION: Exam: CT Abdomen And Pelvis [...] FINDINGS: Liver: No hepatic lesion or significant steatosis. Gallbladder and bile ducts: No gross abnormalities. No [...] moderate mesenteric and body wall edema is identified. No pneumoperitoneum identified. Vasculature: No abdominal aortic aneurysm. Lymph nodes: No threshold enlarged lymph nodes visualized. Urinary bladder: Unremarkable as visualized.Reproductive: 3.3 x 3.0 cm hypodensity in the left inferior pelvis is likely located within the left prostate or seminal vesicle. Bones/joints: No acute osseous abnormalities. No suspicious lytic or blastic osseous lesions. Soft tissues: No mass or fluid collection. IMPRESSION: PAGE 1 Signed Report (CONTINUED) Name: KARMA ROWLAND [facility] : 1965 Age/S: 56 / M [address] [place] [address] Unit #: [id number] Loc: [place] [address] Phys: Angi Peña Acct: [id number] DisDate: Status: ADM IN PHONE #: [phone] Exam Date: 08/18/2022338 FAX #: [phone] Reason: FEVER PAIN EXAMS: CPT CODE: [id number] CT ABD PELVIS W/CONT 05559 (Continued) 3.3 cm hypodensity in the left posterior prostate or seminal vesicle. This could represent an abscess. Contrast-enhanced MRI of the pelvis would be helpful for further evaluation. No acute intra-abdominal findings otherwise. at 0546 Reported and signed by: Jay Ladd M.D. CC: Angi Peña Technologist:RT Halima(R)(CT) CTDI: DLP: Trnscb Date/Time: 08/18/2022 (545) TipWJ3 Orig Print D/T: S: 08/18/2022 (30) PAGE 2 Signed Report Notes Date/Time Note Provider Source 2022-09-24 19:34:00 [id number] XfevtcPFj3v/LVRA26d4Gr9D9Np0102-15-78O18:34:00 [facility] ([facility])Podiatry Progress NoteREPORT#:[id number] REPORT STATUS: SignedDATE:09/24/22 TIME: 1933 PATIENT: KARMA ROWLAND UNIT #: [id number]#: [id number] [address] [birth year] AGE: 56 SEX: M ATTEND: Mj Vences [facility] AUTHOR: Liam Pedersen DPM * ALL edits or amendments must be made on the electronic/computer document * SubjectiveChief complaint:left heel ulcer. left ankle painPatient reports: no confusion, no dizziness, no fever, no heartburn, no itching,no nausea Objective GeneralVS:Last Documented: Result Date Time Pulse Ox 95 09/24 1632 B/P 156/74 09/24 1632 B/P Mean 101.6 09/24 1632 O2 Delivery Room air 09/24 1632 Temp 36.7 09/24 1632 Pulse 87 09/24 1632 Resp 17 09/24 1632 O2 Flow Rate 2 09/08 1322 PATIENT WEIGHT: Weight (lb): 167Weight (oz): 12.35Weight (kg): 76.100 Medications:Active Meds + DC'd Last 24 HrsPrednisone (predniSONE) 40 MG C BK PO (DCD) Clonidine HCl (CATAPRES) 0.1 MG Q12HR PO (DCD) Furosemide (LASIX) 20 MG DAILY PO (DCD) Insulin Glargine (Semglee) 22 UNIT BEDTIME SUBQ (DCD) Insulin Human Lispro (HUMALOG) 12 UNIT AC SUBQ (DCD) Sodium Bicarbonate (SODIUM BICARBONATE) 650 MG BID PO (DCD) Amlodipine Besylate (NORVASC) 10 MG DAILY PO (DC) Prednisone (predniSONE) 50 MG C BK PO (DC) Hydralazine HCl (APRESOLINE) 100 MG Q8HR PO (DCD) Carvedilol (COREG) 25 MG C BK DIN PO (DCD) Gabapentin (NEURONTIN) 100 MG Q8HR PO (DCD) Oxycodone/Acetaminophen (PERCOCET 5/325MG TAB) 2 TAB Q4H PRN PRN PO (DCD) Folic Acid (FOLIC ACID) 2 MG DAILY PO (DCD) Multivitamins (TAB-A-MOHAN) 1 TAB DAILY PO (DCD) Furosemide (LASIX 20MG INJ) 20 MG BLOOD-DOSE BETWEEN IV (DCD) Sodium Chloride (SODIUM CHLORIDE) 10 ML ASDIR IV (DCD) Pantoprazole Sodium (PROTONIX) 40 MG Q12HR IV (DCD) Polyethylene Glycol (MIRALAX) 17 GM DAILY PO (DCD) Sennosides (Senna Lax 8.6 MG TABLET) 8.6 MG DAILY PO (DCD) Sodium Chloride (SODIUM CHLORIDE) 10 ML ASDIR PRN IV (DCD) Amitriptyline HCl (ELAVIL) 25 MG BEDTIME PO (DCD) Zinc Oxide (ZINC OXIDE 30 GM OINTMENT) 1 APPLIC DAILY TOPICAL (DCD) Sterile Water (WATER FOR IRRIGATION) DRESSING CHANGE ASDIR PRN IRR (DCD) Insulin Human Lispro (HUMALOG) 0 AC HS SUBQ (DCD) Dextrose/Water (DEXTROSE 10% IN WATER) 125 ML ASDIR PRN IV (DCD) Dextrose/Water (DEXTROSE 10% IN WATER) 250 ML ASDIR PRN IV (DCD) Glucagon (GLUCAGON) 1 MG ASDIR PRN IM (DCD) Lidocaine (LIDODERM) 1 PATCH DAILY TOPICAL (DCD) Acetaminophen (TYLENOL) 650 MG Q6H PRN PRN PO (DCD) Bisacodyl (DULCOLAX) 10 MG DAILY PRN PRN RECTAL (DCD) Docusate Sodium (COLACE) 100 MG Q12H PRN PRN PO (DCD) Hydralazine HCl (APRESOLINE) 10 MG Q6H PRN PRN IV (DCD) Ondansetron HCl (ZOFRAN) 4 MG Q6H PRN PRN IV (DCD) I O:24 hour I O ending at 0700: 09/24 0700 09/23 1900 Intake Total 240 Output Total 1500 1300 Balance -1260 -1300 Intake, Oral 240 Number 0 Incontinent Voids Number Voids 0 Output, Urine 1500 1300 Dietitian nutrition assessmentThe data set between the solid lines has been imported from the dietitian's assessment. BMI Calculated: 27.1Nutrition related diagnosis: Nutrition diagnosis details: Nutrition problem: Altered nutrition labsNutrition etiology: DMNutrition signs and symptoms: HYPER/HYPOGLYCEMIA, A1C >14Nutrition prescription: CONTINUE RENAL DM DIETDietitian name: You Palmer, DIETAssessment completed: 09/18/22 Physical ExamGeneral appearance: alert, awake, orientedWound/incision: Location:left foot Site condition: dp/pt 2/4 left. light touch decreased left foot. ulcer starting at posterior left heel. eccymosis noted. early likely stage 1. left ankle has edema. pain with aggressive ROM left ankle. dorsal left midfoot is starting to have tissue injuryLE vascular pulse assess:2+ L posterior tibialis, 2+ L dorsalis pedis Considered stroke alert: noUlcer: Location: DTI dorsal left midfoot ResultsFindings/Data:Laboratory Tests: 09/24 09/24 09/24 09/24 1630 1052 [...] % (Auto) (14.0 - 32.0 %) 14.8 [place] % (Auto) (4.8 - 9.0 %) 7.6 Eos % (Auto) (0.3 - 3.7 %) 3.0 Baso % (Auto) (0.0 - 2.0 %) 0.0 Neut # (Auto) (2.0 - 7.6 x10 3/uL) 9.62 H Lymph # (Auto) (1.0 - 3.8 x10 3/uL) 1.93 Lenoir # (Auto) (0.1 - 0.8 x10 3/uL) 0.99 H Eos # (Auto) (0.0 - 0.2 x10 3/uL) 0.39 H Baso # (Auto) (0.0 - 0.2 x10 3/uL) 0.00 Abs Immat Gran (auto) (0.00 - 0.03 x10 3/uL) 0.14 H Add Manual Diff NO Immature Gran % (0.0 - 2.0 %) 1.1 Nucleated RBC % (0 - 0 %) 0.0 Nucleated RBCs # (Man) (0.0 - 0.1 x10 3/uL) 0.00 Diagnosis, Assessment PlanFree Text A P:DM with neuropathyearly decub ulcer left heelOA/edema left ankleearly ulcer/DTI dorsal left midfoot zinc oxide to foot and heelfoam to heelon IV abxon PO gabapentinoffloading bootace wraps to ankle, only when OOB with therapy.zinc oxide interchange with bactroban to dorsal left foot Consultants: cardiology, endocrinology, hospitalist, infectious disease, podiatry at 1934 RPT #:[id number] OF REPORTPRProgress uxin9260-57-80C53:34:00G.[id number] able for patient lcqrTHCOPQPXXRBEMV7625-19-44R92:35:19 [facility] 2022-09-24 16:05:00 [id number] fLea+[id number] 3FxmkyYeN+83xtSwc5ylAQhToNp0322-08-99W52:05:00 [facility] ([facility])Infectious Dis. Progress NoteREPORT#:[id number] REPORT STATUS: SignedDATE:09/24/22 TIME: 1605 PATIENT: KARMA ROWLAND UNIT #: [id number]#: [id number] [facility]OM[facility]ED: [facility]DOB: [birth year] AGE: 56 SEX: M ATTEND: Mj Vences [facility] AUTHOR: Anthony Curtis MD * ALL edits or amendments must be made on the electronic/computer document * SubjectiveChief complaint:Follow-up on MRSA bacteremia, prostatic abscess.HPI:Patient reports feeling better subjectively. Denies acute or new complaints. No major overnight events. Objective GeneralVS/I O:Vital SignsDate Temp Pulse Resp B/P B/P Mean Pulse Ox FeE541/02-/03 97.7-97.9 86-87 16 160-169/81-86 107.5-113.7 97 Last Documented: Result Date Time Pulse Ox 97 09/24 0009 B/P 160/81 / 0009 B/P Mean 107.5 / 0009 O2 Delivery Room air 09/24 000 Temp 97.9 / 0009 Pulse 87 / 0009 Resp 16 09/24 0009 O2 Flow Rate 2 09/08 1322 Vital Signs: Date Time Temp Pulse Resp B/P B/P Pulse O2 O2 Flow FiO2 Mean Ox Delivery Rate 09/24 000 97.9 87 16 160/81 107.5 97 Room air 09/23 1916 97.7 86 16 169/86 113.7 97 Room air 24 hour I O ending at 0700: 09/24 0700 / 1900 Intake Total 240 Output Total 1500 1300 Balance -1260 -1300 Intake, Oral 240 Number 0 Incontinent Voids Number Voids 0 Output, Urine 1500 1300 PATIENT WEIGHT: Weight (lb): 167Weight (oz): 12.35Weight (kg): 76.100 Physical ExamGeneral appearance: alert, awake, no acute distressCardiovascular: normal heart sounds, regular rate rhythmRespiratory: clear to auscultation, aerating wellAbdomen: non-tender, soft, no distentionExtremities: edema (in left leg and thigh improved), moves all, right BKA Left foot wound +dressing in placeNeuro/DIRECTOR OPERATING ROOM: alert, oriented X 3 Considered stroke alert: noSkin: dry, intact, no rashPsychiatry: normal affect, normal mood Diagnosis, Assessment PlanFree Text A P: Assessment: Patient is a 56-year-old male with history of diabetes mellitus type 2, hypertension who was admitted with altered mental status and right-sided foot infection. According to him, he noticed a blister on his right foot around 3 days prior to presentation. His foot got progressively more swollen and erythema extended proximally to his lateral foot and ankle. CT abdomen and pelvis with contrast is concerning for possible prostate abscess. CT of lower extremity without contrast shows extensive soft tissue edema with mottled gas inthe subcutaneous and intramuscular compartments of the foot, compatible with gas-forming infection. Patient's blood cultures have come back positive for MRSA in 2 out of 2 sets. Patient has had persistent positive cultures for MRSA. He underwent a debridement of his foot on 08/19/2022 and cultures grew MRSA. Patient was started on vancomycin and clindamycin on 08/18/2022. His MRI showeda prostate abscess. 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 Pt underwent a transrectal aspiration and unroofing of prostate abscess 08/26/2022 and culturesgrew Citrobacter, Enterococcus, MRSA. 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 JIMENA done 09/02/2022, which was negative for vegetations. Patient was transferred to Rehab on 09/02/2022. *MRSA bacteremia, refractory, now cleared*Prostatic abscess, s/p unroofing 08/26/2022*ERIKA*Hyponatremia*Diabetic neuropathy*Diabetes mellitus type 2*Hypertension*Anemia -Afebrile; although with an isolated low-grade temperature spike of 37.2 C.-Leukocytosis of 11.8 on today's CBC noted; overall, downtrending.-No recent cultures. Last blood cultures from 08/28/22 negative x2. Plan: -On daptomycin and meropenem.-Finishing treatment today.-Would finish treatment as planned and then monitor off antimicrobials.-Continue supportive care. at 1605 [facility] #:[id number] OF REPORTPRProgress knuh9528-02-50D69:05:00G.[id number] able for patient boirUWIVWJPGRSSPTV6133-56-05P42:06:07 [facility] 2022-09-24 15:22:00 [id number]+WvOBayiZ90dwjOe [id number]O98:22:00 [facility] ([facility])Pain Management Progress NoteREPORT#:[id number] REPORT STATUS: SignedDATE:09/24/22 TIME: 1521 PATIENT: KARMA ROWLAND UNIT #: [id number]#: [id number] [address] AGE: 56 SEX: M ATTEND: Mj Vences [facility] AUTHOR: Ben Klein * ALL edits or amendments must be made on the electronic/computer document * Ben Klein 09/24/22 152:SubjectiveChief complaint:Patient seen and examined. Chart/MAR reviewed. Patient is currently with good pain control medication alleviates pain when taken. No side effects noted with use. No aggravating neuropathy symptoms today. Patient being seen for Acute postoperative pain, right foot and anklegangrene, requiring BKA, Neuropathy, Constipation Patient is still requiring medications to help with managing currentproblems. No fever/chills, chest pain, orthopnea, nausea/vomiting, pruritus, orhallucinations.14 point ROS undertaken unremarkable except as noted Objective GeneralVS/I O:Vital SignsDate Temp Pulse Resp B/P B/P Mean Pulse Ox DoS631/02-/ 36.5-36.6 86-87 16 160-169/81-86 107.5-113.7 97 Last Documented: Result Date Time Pulse Ox 97 09/24 0009 B/P 160/81 09/24 0009 B/P Mean 107.5 09/24 0009 O2 Delivery Room air 09/24 8 Temp 36.6 09/24 000 Pulse 87 09/24 000 Resp 16 09/24 000 O2 Flow Rate 2 09/08 1322 24 hour I O ending at 0700: 09/24 0700 / 1900 Intake Total 240 Output Total 1500 1300 Balance -1260 -1300 Intake, Oral 240 Number 0 Incontinent Voids Number Voids 0 Output, Urine 1500 1300 PATIENT WEIGHT: Weight (lb): 167Weight (oz): 12.35Weight (kg): 76.100 Medications:Active Meds + DC'd Last 24 HrsPrednisone (predniSONE) 40 MG C BK PO Clonidine HCl (CATAPRES) 0.1 MG Q12HR PO Furosemide (LASIX) 20 MG DAILY PO Insulin Glargine (Semglee) 22 UNIT BEDTIME SUBQ Insulin Human Lispro (HUMALOG) 12 UNIT AC SUBQ Sodium Bicarbonate (SODIUM BICARBONATE) 650 MG BID PO Lactulose (LACTULOSE) 20 GM ONCE ONE PO (DC) Amlodipine Besylate (NORVASC) 10 MG DAILY PO (DC) Prednisone (predniSONE) 50 MG C BK PO (DC) Hydralazine HCl (APRESOLINE) 100 MG Q8HR PO Carvedilol (COREG) 25 MG C BK DIN PO Gabapentin (NEURONTIN) 100 MG Q8HR PO Oxycodone/Acetaminophen (PERCOCET 5/325MG TAB) 2 TAB Q4H PRN PRN PO Folic Acid (FOLIC ACID) 2 MG DAILY PO Multivitamins (TAB-A-MOHAN) 1 TAB DAILY PO Furosemide (LASIX 20MG INJ) 20 MG BLOOD-DOSE BETWEEN IV (CKD) Sodium Chloride (SODIUM CHLORIDE) 10 ML ASDIR IV Pantoprazole Sodium (PROTONIX) 40 MG Q12HR IV Polyethylene Glycol (MIRALAX) 17 GM DAILY PO Sennosides (Senna Lax 8.6 MG TABLET) 8.6 MG DAILY PO Sodium Chloride (SODIUM CHLORIDE) 10 ML ASDIR PRN IV Amitriptyline HCl (ELAVIL) 25 MG BEDTIME PO Zinc Oxide (ZINC OXIDE 30 GM OINTMENT) 1 APPLIC DAILY TOPICAL Sterile Water (WATER FOR IRRIGATION) DRESSING CHANGE ASDIR PRN IRR Insulin Human Lispro (HUMALOG) 0 AC HS SUBQ Dextrose/Water (DEXTROSE 10% IN WATER) 125 ML ASDIR PRN IV (CKD) Dextrose/Water (DEXTROSE 10% IN WATER) 250 ML ASDIR PRN IV (CKD) Glucagon (GLUCAGON) 1 MG ASDIR PRN IM Lidocaine (LIDODERM) 1 PATCH DAILY TOPICAL Acetaminophen (TYLENOL) 650 MG Q6H PRN PRN PO Bisacodyl (DULCOLAX) 10 MG DAILY PRN PRN RECTAL Docusate Sodium (COLACE) 100 MG Q12H PRN PRN PO Hydralazine HCl (APRESOLINE) 10 MG Q6H PRN PRN IV Ondansetron HCl (ZOFRAN) 4 MG Q6H PRN PRN IV Physical ExamGeneral appearance: alert, awake, oriented, no acute distressHead/eyes: atraumatic, EOMI, normocephalic, normal conjunctiva/sclera, PERRLAENT: normal nose, normal pharynx, moist mucosal membranesNeck: full range of motion, no lymphadenopathy, supple/no meningismusCardiovascular: regular rate rhythmRespiratory: aerating wellAbdomen: soft, non-tender, no distention, active bowel sounds in all quarants. 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: 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, no sensory deficits, CNII-XII grossly intact Considered stroke alert: noSkin: dry, intact, no rashLymphatics: axilla normalPsychiatry: normal affect, normal judgment/insight ResultsFindings/data:Laboratory Tests: 09/24 09/24 09/24 09/23 1052 0551 [...] % (Auto) (14.0 - 32.0 %) 14.8 Lenoir % (Auto) (4.8 - 9.0 %) 7.6 Eos % (Auto) (0.3 - 3.7 %) 3.0 Baso % (Auto) (0.0 - 2.0 %) 0.0 Neut # (Auto) (2.0 - 7.6 x10 3/uL) 9.62 H Lymph # (Auto) (1.0 - 3.8 x10 3/uL) 1.93 [place] # (Auto) (0.1 - 0.8 x10 3/uL) 0.99 H Eos # (Auto) (0.0 - 0.2 x10 3/uL) 0.39 H Baso # (Auto) (0.0 - 0.2 x10 3/uL) 0.00 Abs Immat Gran (auto) (0.00 - 0.03 x10 3/uL) 0.14 H Add Manual Diff NO Immature Gran % (0.0 - 2.0 %) 1.1 Nucleated RBC % (0 - 0 %) 0.0 Nucleated RBCs # (Man) (0.0 - 0.1 x10 3/uL) 0.00 Diagnosis, Assessment PlanFree text A P:A/P:Patient is a 56 year old male who presents with: Past Medical History: Prostate abscess, right foot foot and ankle gangrene, diabetes, hypertension, hyperlipidemiaPast Surgical History: TURP, right BKAFamily History: NoncontributorySocial History: Denies tobacco, alcohol, or drug useAllergies: NKDA Recent prostate abscess-Status post TURP with unroofing of abscess-IV antibiotics with vancomycin until 09-24-2022 Acute postoperative pain, right foot and ankle gangrene, requiring BKA-Patient is at risk for further amputations or loss of limb due to comorbid conditions-Status post right BKA 08/28/2022-DC Sheldon 10/325 1 tablet p.o. every 4 hours as needed pain scale 4 10-DC Dilaudid 0.5 mg IV daily as needed pain scale 7 10, second line therapy (09/13)-Tylenol 650 mg p.o. every 6 hours as needed pain scale 1 3-Percocet 10/325mg every 4 hours as needed, pain scale 4-10 (09/10)-Lidoderm patch to left ankle daily-IV antibiotics with vancomycin until [id number]-Local wound care-manageable Diabetic peripheral neuropathy-amitriptyline 25mg PO QHS-Gabapentin 100mg every 8 hours (09/10)-manageable Hypertension-We will monitor hypertension and tachycardia due to pain, and hypotension as well as bradycardia secondary over sedation with narcotics-Hydralazine as needed Elevated LFTs-08/20/22-AST 51, ALT 22-09/03/2022-AST 15, ALT 7-Patient will require close monitoring since he is using narcotics with Tylenol Impaired functional mobility, balance, gait, and endurance-PT/OT Antalgic/Impaired gait-PT/OT-Improve strength, endurance, self-care, gait, balance, ADLs-Fall precautions per unit protocol-Pain medications as outlined above Constipation-We will monitor while utilizing opioid narcotic medications.-Adequate fluid intake also discussed.-Colace 100 mg p.o. twice daily as needed-Dulcolax 10 mg rectally daily as needed-Senna lax 8.6mg daily-Miralax 17gm daily-manageable Disposition: percocet 10/325mg q6h prn pain , gabapentin 100mg q8h sent to [facility]/pharmacy #[id number] [address] [place] [place] [address] ([facility]) Patient has failed conservative medical therapy.Patient will require monitoring while utilize narcotic medications for any adverse effects, and will adjust as neededPlan of care discussed with patient and nurseAll diagnostics of last 24 hours been reviewed. Risks versus benefits of opioid medications were reviewed to include, but not limited to respiratory depression, accidental overdose, altered mental status, sudden , constipation which could result in bowel obstruction, seizures, withdrawal, dependency addiction, risk for falls. Case discussed with Dr Ng whom agrees. Thank you for the consultation. [place] [employer] OFFICER:-database searched, no information found Kingsley Ng 10/10/22 1305:Attestations Physician AttestationAgree w/findings plan:The patient was seen and examined by Ben Klein. I personally developed the care plan, which was continued by the mid-level provider. I was immediately available. at 1528 at 1308 RPT #:[id number] OF REPORTPRProgress [id number]:22:00G.[id number] able for patient [id number]:29:21 [facility] 2022-09-24 14:06:00 [id number]/[id number] [id number]+DceTuroGNRoIJ7986-77-46S63:06:00 [facility])Endocrinology Progress NoteREPORT#:[id number] REPORT STATUS: SignedDATE:09/24/22 TIME: 1406 PATIENT: KARMA ROWLAND UNIT #: [id number]#: [id number] [address] AGE: 56 SEX: M ATTEND: Mj Vences MDADM AUTHOR: Braxton Chapin MD * ALL edits or amendments must be made on the electronic/computer document * SubjectivePatient reports: no complaints Objective GeneralVS:Last Documented: Result Date Time Pulse Ox 97 09/24 8 B/P 160/81 09/24 8 B/P Mean 107.5 09/24 8 O2 Delivery Room air 09/24 8 Temp 36.6 09/24 8 Pulse 87 09/24 8 Resp 16 09/24 8 O2 Flow Rate 2 09/08 1322 PATIENT WEIGHT: Weight (lb): 167Weight (oz): 12.35Weight (kg): 76.100 Medications:Active Meds + DC'd Last 24 HrsPrednisone (predniSONE) 40 MG C BK PO Clonidine [...] Amlodipine Besylate (NORVASC) 10 MG DAILY PO (DC) Prednisone (predniSONE) 50 MG C BK PO (DC) Hydralazine HCl (APRESOLINE) 100 MG Q8HR PO Insulin Glargine (Semglee) 19 UNIT BEDTIME SUBQ (DC) Insulin Human Lispro (HUMALOG) 10 UNIT AC SUBQ (DC) Carvedilol (COREG) 25 MG C BK DIN PO Gabapentin (NEURONTIN) 100 MG Q8HR PO Oxycodone/Acetaminophen (PERCOCET 5/325MG TAB) 2 TAB Q4H PRN PRN PO Folic Acid (FOLIC ACID) 2 MG DAILY PO Multivitamins (TAB-A-MOHAN) 1 TAB DAILY PO Furosemide (LASIX 20MG INJ) 20 MG BLOOD-DOSE BETWEEN IV (CKD) Sodium Chloride (SODIUM CHLORIDE) 10 ML ASDIR IV Pantoprazole Sodium (PROTONIX) 40 MG Q12HR IV Polyethylene Glycol (MIRALAX) 17 GM DAILY PO Sennosides (Senna Lax 8.6 MG TABLET) 8.6 MG DAILY PO Sodium Chloride (SODIUM CHLORIDE) 10 ML ASDIR PRN IV Amitriptyline HCl (ELAVIL) 25 MG BEDTIME PO Zinc Oxide (ZINC OXIDE 30 GM OINTMENT) 1 APPLIC DAILY TOPICAL Sterile Water (WATER FOR IRRIGATION) DRESSING CHANGE ASDIR PRN IRR Insulin Human Lispro (HUMALOG) 0 AC HS SUBQ Dextrose/Water (DEXTROSE 10% IN WATER) 125 ML ASDIR PRN IV (CKD) Dextrose/Water (DEXTROSE 10% IN WATER) 250 ML ASDIR PRN IV (CKD) Glucagon (GLUCAGON) 1 MG ASDIR PRN IM Lidocaine (LIDODERM) 1 PATCH DAILY TOPICAL Acetaminophen (TYLENOL) 650 MG Q6H PRN PRN PO Bisacodyl (DULCOLAX) 10 MG DAILY PRN PRN RECTAL Docusate Sodium (COLACE) 100 MG Q12H PRN PRN PO Hydralazine HCl (APRESOLINE) 10 MG Q6H PRN PRN IV Ondansetron HCl (ZOFRAN) 4 MG Q6H PRN PRN IV Physical ExamGeneral appearance: alert, awake Diagnosis, Assessment PlanHospital course to date:Laboratory Tests: 09/24 09/24 09/24 09/23 1052 0551 [...] % (Auto) (14.0 - 32.0 %) 14.8 [place] % (Auto) (4.8 - 9.0 %) 7.6 Eos % (Auto) (0.3 - 3.7 %) 3.0 Baso % (Auto) (0.0 - 2.0 %) 0.0 Neut # (Auto) (2.0 - 7.6 x10 3/uL) 9.62 H Lymph # (Auto) (1.0 - 3.8 x10 3/uL) 1.93 [place] # (Auto) (0.1 - 0.8 x10 3/uL) 0.99 H Eos # (Auto) (0.0 - 0.2 x10 3/uL) 0.39 H Baso # (Auto) (0.0 - 0.2 x10 3/uL) 0.00 Abs Immat Gran (auto) (0.00 - 0.03 x10 3/uL) 0.14 H Add Manual Diff NO Immature Gran % (0.0 - 2.0 %) 1.1 Nucleated RBC % (0 - 0 %) 0.0 Nucleated RBCs # (Man) (0.0 - 0.1 x10 3/uL) 0.00 09/23 1520 Chemistry POC Glucose (70 - 110 MG/DL) 146 H Laboratory Tests: 09/23 09/23 09/23 09/23 09/22 1050 0516 0501 0331 1841Chemistry Sodium (134 - 147 mEq/L) 138 Potassium [...] 5.2 H Magnesium (1.80 - 2.40 mg/dL) 2.22Hematology WBC (4.5 - 11.0 x10 3/uL) 11.8 [...] (Auto) (14.0 - 32.0 %) 9.6 L [place] % (Auto) (4.8 - 9.0 %) 4.5 L Eos % (Auto) (0.3 - 3.7 %) 0.1 L Baso % (Auto) (0.0 - 2.0 %) 0.1 Neut # (Auto) (2.0 - 7.6 x10 3/uL) 10.02 H Lymph # (Auto) (1.0 - 3.8 x10 3/uL) 1.13 [place] # (Auto) (0.1 - 0.8 x10 3/uL) 0.53 Eos # (Auto) (0.0 - 0.2 x10 3/uL) 0.01 Baso # (Auto) (0.0 - 0.2 x10 3/uL) 0.01 Abs Immat Gran (auto) (0.00 - 0.03 0.11 Hx10 3/uL) Add Manual Diff NO Immature Gran % (0.0 - 2.0 %) 0.9 Nucleated RBC % (0 - 0 %) 0.0 Nucleated RBCs # (Man) (0.0 - 0.1 0.00x10 3/uL) 09/22 1537 Chemistry POC Glucose (70 [...] (Auto) (14.0 - 32.0 %) 11.3 L [place] % (Auto) (4.8 - 9.0 %) 5.7 Eos % (Auto) (0.3 - 3.7 %) 0.2 L Baso % (Auto) (0.0 - 2.0 %) 0.0 Neut # (Auto) (2.0 - 7.6 x10 3/uL) 9.79 H Lymph # (Auto) (1.0 - 3.8 x10 3/uL) 1.35 [place] # (Auto) (0.1 - 0.8 x10 3/uL) 0.68 Eos # (Auto) (0.0 - 0.2 x10 3/uL) 0.02 Baso # (Auto) (0.0 - 0.2 x10 3/uL) 0.00 Abs Immat Gran (auto) (0.00 - 0.03 x10 3/uL) 0.13 H Add Manual Diff NO Immature Gran % (0.0 - 2.0 %) 1.1 Nucleated RBC % (0 - 0 %) 0.0 Nucleated RBCs # (Man) (0.0 - 0.1 x10 3/uL) 0.00 Laboratory Tests: 09/21 09/21 09/21 09/21 09/21 1552 1437 1107 0530 0500Chemistry Sodium (134 - 147 mEq/L) 137 Potassium [...] 5.0 H Magnesium (1.80 - 2.40 mg/dL) 2.06Hematology WBC (4.5 - 11.0 x10 3/uL) 13.0 [...] (Auto) (14.0 - 32.0 %) 11.3 L [place] % (Auto) (4.8 - 9.0 %) 5.3 Eos % (Auto) (0.3 - 3.7 %) 0.2 L Baso % (Auto) (0.0 - 2.0 %) 0.1 Neut # (Auto) (2.0 - 7.6 x10 3/uL) 10.70 H Lymph # (Auto) (1.0 - 3.8 x10 3/uL) 1.47 [place] # (Auto) (0.1 - 0.8 x10 3/uL) 0.69 Eos # (Auto) (0.0 - 0.2 x10 3/uL) 0.03 Baso # (Auto) (0.0 - 0.2 x10 3/uL) 0.01 Abs Immat Gran (auto) (0.00 - 0.03 0.12 Hx10 3/uL) Add Manual Diff NO Immature Gran % (0.0 - 2.0 %) 0.9 Nucleated RBC % (0 - 0 %) 0.0 Nucleated RBCs # (Man) (0.0 - 0.1 0.00x10 3/uL) Laboratory Tests: 09/20 09/20 09/20 09/20 09/19 1140 0922 0505 0452 1921Chemistry Sodium (134 - 147 mEq/L) 136 Potassium [...] 5.4 H Magnesium (1.80 - 2.40 mg/dL) 2.05Hematology WBC (4.5 - 11.0 x10 3/uL) 12.3 [...] (Auto) (14.0 - 32.0 %) 13.0 L [place] % (Auto) (4.8 - 9.0 %) 6.2 Eos % (Auto) (0.3 - 3.7 %) 0.2 L Baso % (Auto) (0.0 - 2.0 %) 0.1 Neut # (Auto) (2.0 - 7.6 x10 3/uL) 9.84 H Lymph # (Auto) (1.0 - 3.8 x10 3/uL) 1.60 [place] # (Auto) (0.1 - 0.8 x10 3/uL) 0.76 Eos # (Auto) (0.0 - 0.2 x10 3/uL) 0.03 Baso # (Auto) (0.0 - 0.2 x10 3/uL) 0.01 Abs Immat Gran (auto) (0.00 - 0.03 0.10 Hx10 3/uL) Add Manual Diff NO Immature Gran % (0.0 - 2.0 %) 0.8 Nucleated RBC % (0 - 0 %) 0.0 Nucleated RBCs # (Man) (0.0 - 0.1 0.00x10 3/uL) Laboratory Tests: 09/19 09/19 09/19 09/18 09/18 1133 0501 0448 2151 1933Chemistry Sodium (134 - 147 mEq/L) 139 Potassium [...] H Magnesium (1.80 - 2.40 mg/dL) 1.69 LHematology WBC (4.5 - 11.0 x10 3/uL) 13.3 [...] % (Auto) (14.0 - 32.0 %) 16.5 [place] % (Auto) (4.8 - 9.0 %) 8.4 Eos % (Auto) (0.3 - 3.7 %) 2.4 Baso % (Auto) (0.0 - 2.0 %) 0.2 Neut # (Auto) (2.0 - 7.6 x10 3/uL) 9.50 H Lymph # (Auto) (1.0 - 3.8 x10 3/uL) 2.19 [place] # (Auto) (0.1 - 0.8 x10 3/uL) 1.11 H Eos # (Auto) (0.0 - 0.2 x10 3/uL) 0.32 H Baso # (Auto) (0.0 - 0.2 x10 3/uL) 0.02 Abs Immat Gran (auto) (0.00 - 0.03 0.14 Hx10 3/uL) Add Manual Diff NO Immature Gran % (0.0 - 2.0 %) 1.1 Nucleated RBC % (0 - 0 %) 0.0 Nucleated RBCs # (Man) (0.0 - 0.1 0.00x10 3/uL) 09/18 1611 Chemistry POC Glucose (70 [...] % (Auto) (14.0 - 32.0 %) 17.4 [place] % (Auto) (4.8 - 9.0 %) 6.9 Eos % (Auto) (0.3 - 3.7 %) 0.1 L Baso % (Auto) (0.0 - 2.0 %) 0.1 Neut # (Auto) (2.0 - 7.6 x10 3/uL) 7.91 H Lymph # (Auto) (1.0 - 3.8 x10 3/uL) 1.85 [place] # (Auto) (0.1 - 0.8 x10 3/uL) 0.73 Eos # (Auto) (0.0 - 0.2 x10 3/uL) 0.01 Baso # (Auto) (0.0 - 0.2 x10 3/uL) 0.01 Abs Immat Gran (auto) (0.00 - 0.03 x10 3/uL) 0.10 H Add Manual Diff NO Immature Gran % (0.0 - 2.0 %) 0.9 Nucleated RBC % (0 - 0 %) 0.0 Nucleated RBCs # (Man) (0.0 - 0.1 x10 3/uL) 0.00 Laboratory Tests: 09/17 09/17 09/17 09/17 09/17 [...] (Auto) (14.0 - 32.0 %) 10.2 L [place] % (Auto) (4.8 - 9.0 %) 2.9 L Eos % (Auto) (0.3 - 3.7 %) 0.0 L Baso % (Auto) (0.0 - 2.0 %) 0.1 Neut # (Auto) (2.0 - 7.6 x10 3/uL) 7.58 Lymph # (Auto) (1.0 - 3.8 x10 3/uL) 0.91 L [place] # (Auto) (0.1 - 0.8 x10 3/uL) 0.26 Eos # (Auto) (0.0 - 0.2 x10 3/uL) 0.00 Baso # (Auto) (0.0 - 0.2 x10 3/uL) 0.01 Abs Immat Gran (auto) (0.00 - 0.03 x10 3/uL) 0.14 H Add Manual Diff NO Immature Gran % (0.0 - 2.0 %) 1.6 Nucleated RBC % (0 - 0 %) 0.0 Nucleated RBCs # (Man) (0.0 - 0.1 x10 3/uL) 0.00 Laboratory Tests: 09/16 09/16 09/16 09/16 1549 1441 1110 0553 Chemistry POC Glucose (70 - 110 MG/DL) 62 L 60 L 148 H 195 H 09/16 09/15 0615 1937 Chemistry Sodium (134 - 147 mEq/L) [...] % (Auto) (14.0 - 32.0 %) 18.6 Lenoir % (Auto) (4.8 - 9.0 %) 6.7 Eos % (Auto) (0.3 - 3.7 %) 0.2 L Baso % (Auto) (0.0 - 2.0 %) 0.1 Neut # (Auto) (2.0 - 7.6 x10 3/uL) 6.99 Lymph # (Auto) (1.0 - 3.8 x10 3/uL) 1.77 [place] # (Auto) (0.1 - 0.8 x10 3/uL) 0.64 Eos # (Auto) (0.0 - 0.2 x10 3/uL) 0.02 Baso # (Auto) (0.0 - 0.2 x10 3/uL) 0.01 Abs Immat Gran (auto) (0.00 - 0.03 x10 3/uL) 0.10 H Add Manual Diff NO Immature Gran % (0.0 - 2.0 %) 1.0 Nucleated RBC % (0 - 0 %) 0.0 Nucleated RBCs # (Man) (0.0 - 0.1 x10 3/uL) 0.00 Laboratory Tests: 09/15 09/15 09/15 09/15 1640 1304 1154 0519 Chemistry POC Glucose (70 - 110 MG/DL) 137 H 126 H 309 H Urines Urine Color (YEL/STRAW) YELLOW Urine Appearance (CLEAR) SL CLOUDY Urine pH (5.0 - 7.0) 5.0 Ur Specific [place] (1.005 - 1.030) 1.013 Urine Protein (NEGATIVE) [...] (Auto) (14.0 - 32.0 %) 11.3 L [place] % (Auto) (4.8 - 9.0 %) 3.2 L Eos % (Auto) (0.3 - 3.7 %) 0.0 L Baso % (Auto) (0.0 - 2.0 %) 0.1 Neut # (Auto) (2.0 - 7.6 x10 3/uL) 7.35 Lymph # (Auto) (1.0 - 3.8 x10 3/uL) 0.98 L [place] # (Auto) (0.1 - 0.8 x10 3/uL) 0.28 Eos # (Auto) (0.0 - 0.2 x10 3/uL) 0.00 Baso # (Auto) (0.0 - 0.2 x10 3/uL) 0.01 Abs Immat Gran (auto) (0.00 - 0.03 x10 3/uL) 0.04 H Add Manual Diff NO Immature Gran % (0.0 - 2.0 %) 0.5 Nucleated RBC % (0 - 0 %) 0.0 Nucleated RBCs # (Man) (0.0 - 0.1 x10 3/uL) 0.00 Microbiology: Date/Time Procedure - Status Source Growth 09/15 514 MRSA DNA Surveillance Screen - COMP NASAL Laboratory Tests: 09/14 09/14 09/14 09/14 09/13 1130 0736 0526 0525 1937Chemistry Sodium (134 - 147 mEq/L) 132 L [...] H Calcium (8.0 - 10.5 mg/dL) 7.5 LHematology WBC (4.5 - 11.0 x10 3/uL) 9.5 [...] (Auto) (14.0 - 32.0 %) 13.9 L [place] % (Auto) (4.8 - 9.0 %) 5.1 Eos % (Auto) (0.3 - 3.7 %) 0.0 L Baso % (Auto) (0.0 - 2.0 %) 0.1 Neut # (Auto) (2.0 - 7.6 x10 3/uL) 7.58 Lymph # (Auto) (1.0 - 3.8 x10 3/uL) 1.31 [place] # (Auto) (0.1 - 0.8 x10 3/uL) 0.48 Eos # (Auto) (0.0 - 0.2 x10 3/uL) 0.00 Baso # (Auto) (0.0 - 0.2 x10 3/uL) 0.01 Abs Immat Gran (auto) (0.00 - 0.03 0.07 Hx10 3/uL) Add Manual Diff NO Immature Gran % (0.0 - 2.0 %) 0.7 Nucleated RBC % (0 - 0 %) 0.0 Nucleated RBCs # (Man) (0.0 - 0.1 0.00x10 3/uL) 09/13 1629 Chemistry POC Glucose (70 - 110 MG/DL) 130 H Laboratory Tests: 09/13 09/13 09/13 09/12 0599 2653 3033 2016 Chemistry Sodium (134 - 147 mEq/L) [...] (Auto) (14.0 - 32.0 %) 10.4 L [place] % (Auto) (4.8 - 9.0 %) 3.5 L Eos % (Auto) (0.3 - 3.7 %) 0.0 L Baso % (Auto) (0.0 - 2.0 %) 0.1 Neut # (Auto) (2.0 - 7.6 x10 3/uL) 8.34 H Lymph # (Auto) (1.0 - 3.8 x10 3/uL) 1.02 [place] # (Auto) (0.1 - 0.8 x10 3/uL) 0.34 Eos # (Auto) (0.0 - 0.2 x10 3/uL) 0.00 Baso # (Auto) (0.0 - 0.2 x10 3/uL) 0.01 Abs Immat Gran (auto) (0.00 - 0.03 x10 3/uL) 0.07 H Add Manual Diff NO Immature Gran % (0.0 - 2.0 %) 0.7 Nucleated RBC % (0 - 0 %) 0.0 Nucleated RBCs # (Man) (0.0 - 0.1 x10 3/uL) 0.00 Microbiology: Date/Time Procedure - Status Source Growth [...] % (Auto) (14.0 - 32.0 %) 15.0 [place] % (Auto) (4.8 - 9.0 %) 7.9 Eos % (Auto) (0.3 - 3.7 %) 3.8 H Baso % (Auto) (0.0 - 2.0 %) 0.3 Neut # (Auto) (2.0 - 7.6 x10 3/uL) 6.34 Lymph # (Auto) (1.0 - 3.8 x10 3/uL) 1.31 [place] # (Auto) (0.1 - 0.8 x10 3/uL) 0.69 Eos # (Auto) (0.0 - 0.2 x10 3/uL) 0.33 H Baso # (Auto) (0.0 - 0.2 x10 3/uL) 0.03 Abs Immat Gran (auto) (0.00 - 0.03 x10 3/uL) 0.06 H Add Manual Diff NO Immature Gran % (0.0 - 2.0 %) 0.7 Nucleated RBC % (0 - 0 %) 0.0 Nucleated RBCs # (Man) (0.0 - 0.1 x10 3/uL) 0.00 Toxicology Random Vancomycin (mcg/mL) 16.7 Laboratory Tests: 09/11 09/11 09/11 09/11 09/11 1532 1445 1114 0541 0445Chemistry Sodium (134 - 147 mEq/L) 134 Potassium [...] MG/DL) 4.7 Magnesium (1.80 - 2.40 mg/dL) 1.90Hematology WBC (4.5 - 11.0 x10 3/uL) 7.9 [...] % (Auto) (14.0 - 32.0 %) 16.1 [place] % (Auto) (4.8 - 9.0 %) 9.1 H Eos % (Auto) (0.3 - 3.7 %) 5.6 H Baso % (Auto) (0.0 - 2.0 %) 0.5 Neut # (Auto) (2.0 - 7.6 x10 3/uL) 5.35 Lymph # (Auto) (1.0 - 3.8 x10 3/uL) 1.27 [place] # (Auto) (0.1 - 0.8 x10 3/uL) 0.72 Eos # (Auto) (0.0 - 0.2 x10 3/uL) 0.44 H Baso # (Auto) (0.0 - 0.2 x10 3/uL) 0.04 Abs Immat Gran (auto) (0.00 - 0.03 0.06 Hx10 3/uL) Add Manual Diff NO Immature Gran % (0.0 - 2.0 %) 0.8 Nucleated RBC % (0 - 0 %) 0.0 Nucleated RBCs # (Man) (0.0 - 0.1 0.00x10 3/uL)Toxicology Random Vancomycin (mcg/mL) 18.3 09/10 1851 Chemistry POC Glucose (70 - 110 MG/DL) 97 Laboratory Tests: 09/10 09/10 09/10 09/10 09/10 1715 1625 1430 1007 0545Chemistry Sodium (134 - 147 mEq/L) 135 Potassium [...] MG/DL) 4.6 Magnesium (1.80 - 2.40 mg/dL) 1.89Hematology WBC (4.5 - 11.0 x10 3/uL) 8.6 [...] % (Auto) (14.0 - 32.0 %) 15.5 [place] % (Auto) (4.8 - 9.0 %) 8.5 Eos % (Auto) (0.3 - 3.7 %) 5.5 H Baso % (Auto) (0.0 - 2.0 %) 0.4 Neut # (Auto) (2.0 - 7.6 x10 3/uL) 5.94 Lymph # (Auto) (1.0 - 3.8 x10 3/uL) 1.33 [place] # (Auto) (0.1 - 0.8 x10 3/uL) 0.73 Eos # (Auto) (0.0 - 0.2 x10 3/uL) 0.47 H Baso # (Auto) (0.0 - 0.2 x10 3/uL) 0.03 Abs Immat Gran (auto) (0.00 - 0.03 0.06 Hx10 3/uL) Add Manual Diff NO Immature Gran % (0.0 - 2.0 %) 0.7 Nucleated RBC % (0 - 0 %) 0.0 Nucleated RBCs # (Man) (0.0 - 0.1 0.00x10 3/uL)Toxicology Random Vancomycin (mcg/mL) 15.7 09/10 09/09 0541 1911 Chemistry POC Glucose (70 - 110 MG/DL) 154 H 102 Recent Impressions:ULTRASOUND - US RETROPERITONEAL COM 09/10 1311 Report Impression - Status: SIGNED Entered: 09/10/2022 1503 IMPRESSION: No acute findings. Impression By: Yared Mares M.D. Laboratory Tests: 09/09 09/09 09/09 09/09 09/09 [...] % (Auto) (14.0 - 32.0 %) 16.1 [place] % (Auto) (4.8 - 9.0 %) 9.2 H Eos % (Auto) (0.3 - 3.7 %) 4.7 H Baso % (Auto) (0.0 - 2.0 %) 0.4 Neut # (Auto) (2.0 - 7.6 x10 3/uL) 6.38 Lymph # (Auto) (1.0 - 3.8 x10 3/uL) 1.49 [place] # (Auto) (0.1 - 0.8 x10 3/uL) 0.85 H Eos # (Auto) (0.0 - 0.2 x10 3/uL) 0.43 H Baso # (Auto) (0.0 - 0.2 x10 3/uL) 0.04 Abs Immat Gran (auto) (0.00 - 0.03 x10 3/uL) 0.05 H Add Manual Diff NO Immature Gran % (0.0 - 2.0 %) 0.5 Nucleated RBC % (0 - 0 %) 0.0 Nucleated RBCs # (Man) (0.0 - 0.1 x10 3/uL) 0.00 Retic Count (auto) (0.3 - 2.3 [...] (Auto) (14.0 - 32.0 %) 13.7 L [place] % (Auto) (4.8 - 9.0 %) 7.2 Eos % (Auto) (0.3 - 3.7 %) 4.8 H Baso % (Auto) (0.0 - 2.0 %) 0.3 Neut # (Auto) (2.0 - 7.6 x10 3/uL) 6.64 Lymph # (Auto) (1.0 - 3.8 x10 3/uL) 1.24 [place] # (Auto) (0.1 - 0.8 x10 3/uL) 0.65 Eos # (Auto) (0.0 - 0.2 x10 3/uL) 0.43 H Baso # (Auto) (0.0 - 0.2 x10 3/uL) 0.03 Abs Immat Gran (auto) (0.00 - 0.03 x10 3/uL) 0.06 H Add Manual Diff NO Immature Gran % (0.0 - 2.0 %) 0.7 Nucleated RBC % (0 - 0 %) 0.0 Nucleated RBCs # (Man) (0.0 - 0.1 x10 3/uL) 0.00 Laboratory Tests: 09/07 09/07 09/07 09/07 09/07 1554 1137 1127 0618 0510 Chemistry Creatinine (0.6 - 1.3 mg/dL) 1.4 H POC Glucose (70 - 110 MG/DL) 112 H 51 L 42 L 135 H Hematology Hgb (12.5 - 16.9 [...] 1739 Occult Blood - COMP STOOL Recent Impressions:RADIOLOGY - XR ABDOMEN 1V (KUB) 09/04 1648 Report Impression - Status: SIGNED Entered: 09/04/2022 1757 IMPRESSION: Benign appearance of the abdomen.Impression By: [email or web address] - Roger Parra M.D.ULTRASOUND - DUP VEIN UNI/LTD 09/05 1146 Report Impression - Status: SIGNED Entered: 09/05/2022 1333 IMPRESSION: 1. No evidence of deep vein thrombosis. 2. Complex heterogeneous hypoechoic fluid collection in the left calf region measuring 8.4 x 2.8 x 2.5 cm; there is no internal vascularity or peripheral hyperemia. May represent a hematoma.Impression By: [email or web address] - Mert Ga M.D.RADIOLOGY - XR CHEST 1 V 09/05 1432 Report Impression - Status: SIGNED Entered: 09/05/2022 1515 IMPRESSION: Minimal bibasilar pulmonary opacitiesImpression By: TipTDO Cr Mares M.D. Laboratory Tests: 09/04 09/04 09/04 09/04 09/04 [...] COLB STOOL 1.Diabetes mellitus type 2 uncontrolled complications.2. Status post right BKA3. Status post gangrene of the right foot.4. Sepsis5. Prostate abscess.6. Anemia7. Chronic renal failure.Blood sugar 183-100 mg/dL.H/H 8.11/17.Adjust insulin dose.PT and OT.If d/c ed,f/u 2 wks. at 1407 RPT #:[id number] OF REPORTPRProgress [id number]:06:00G.[id number] able for patient xbiuFYRGQFNUXWEOLC1171-32-93L37:08:41 [facility] 2022-09-24 10:48:00 [id number] Qn+[id number]:48:00 [facility] Dis[facility] SummaryREPORT#:[id number] REPORT STATUS: SignedDATE:09/24/22 TIME: 1048 PATIENT: KARMA ROWLAND UNIT #: [id number]#: [id number] [address] [birth year] AGE: 56 SEX: M ATTEND: Mj Vences MDADM AUTHOR: Guero Candelaria * ALL edits or amendments must be made on the electronic/computer document * Med Rec Med RecDischarge meds:Stop taking the following medications:HEPARIN SODIUM,PORCINE (HEPARIN SOD 1ML) 5,000 UNIT/ML VIAL 5,000 UNIT SUBCUTANEOUS EVERY 8 HOURS. Days = 14 Qty = 42 hydrALAZINE (APRESOLINE) 20 MG/ML AMPUL 10 MILLIGRAM INTRAVENOUS EVERY 6 HOURS NEEDED. as needed for SBP GREATER THAN 160 Days = 10 DOCUSATE SODIUM (COLACE) 100 MG CAP 100 MILLIGRAM ORAL EVERY 12 HR NEEDED. as needed for CONSTIPATION Days = 14 BISACODYL (DULCOLAX) 10 MG SUPP.RECT 10 MILLIGRAM RECTAL. DAILY NEEDED. as needed for CONSTIPATION, SECOND LINE Days = 14 ONDANSETRON (ONDANSETRON) 4 MG/2 ML VIAL 4 MILLIGRAM INTRAVENOUS EVERY 6 HOURS NEEDED. as needed for N/V IF NOT ONPO DIET Days = 14 INSULIN GLARGINE (LANTUS) 100 UNIT/ML VIAL 15 UNIT SUBCUTANEOUS BEDTIME. Days = 14 INSULIN LISPRO (HumaLOG) 100 UNIT/ML VIAL 0 UNIT SUBCUTANEOUS BEFORE MEALS AND AT BEDTIME. Days = 14 INSULIN LISPRO (HumaLOG) 100 UNIT/ML VIAL 5 UNIT SUBCUTANEOUS BEFORE MEALS. Days = 14 VANCOMYCIN (VANCOCIN) 1 GRAM VIAL 1 GRAM INTRAVENOUS EVERY 12 HOURS. Days = 7 CEFEPIME (MAXIPIME) 1 GRAM VIAL 1 GRAM INTRAVENOUS EVERY 6 HOURS. Days = 28 Start taking the following new medications:amLODIPine (NORVASC) 10 MG TAB 10 MILLIGRAM ORAL [...] Refills SODIUM BICARBONATE (SODIUM BICARBONATE) 650 MG TAB 650 MILLIGRAM ORAL TWICE DAILY. Qty = [...] Qty = 30 No Refills Objective Physical ExamVS:Last Documented: Result Date Time Pulse Ox 97 09/24 8 B/P 160/81 09/24 8 B/P Mean 107.5 09/24 8 O2 Delivery Room air 09/24 8 Temp 97.9 09/24 8 Pulse 87 05/03 0009 Resp 16 05/03 0009 O2 Flow Rate 2 09/08 1322 PATIENT WEIGHT: Weight (lb): 167Weight (oz): 12.35Weight (kg): 76.100 General appearance: alert, awakePsych: alert, normal affect, oriented x 3HEENT: anicteric, sclera clearNeck: supple, no JVDCardiovascular: S1/S2, no murmurRespiratory: aerating well, clear bilaterallyAbdomen: bowel sounds present, non-distended, soft, non-tenderSkin: no rash, R BKA HEALING. L ankle/foot wrapped with kerlixMusculoskeletal - general: Musculoskeletal - general: swelling (LLE, calve NT, homans neg), BUE 5/5, LLE4/5, R hip 3-Neuro/DIRECTOR OPERATING ROOM: alert, oriented X 3, CNII-XII intact Functional ProgressFunctional progress:The data set between the solid lines has been imported from multidisciplinary team documentation. FUNCTIONAL ACTIVITY ADMISSION STATUS DISCHARGE STATUS Toilet hygiene Partial/moderate (3) Partial/moderate (3) Toilet transfer Substantial/max (2) Partial/moderate (3) Eating Supervision/touch (4) Independent (6) Shower/bathing Partial/moderate (3) Setup or cleanup (5) Dressing upper body Partial/moderate (3) Independent (6) Dressing lower body Dependent (1) Partial/moderate (3) Transfer to/from bed to chair Substantial/max (2) Supervision/touch (4) Wheel 50ft w/ 2 turns Partial/moderate (3) Independent (6) Wheel 150 ft Partial/moderate (3) Independent (6) Walk 50 ft w/ 2 turns Walk 150 ft Four steps General Information General InformationDate of admission:Date of admission: 09/02/22 Discharge date: 09/24/22Admission diagnosis:Severe Gas gangrene right foot and right ankle associated with osteomyelitis andnecrotizing fasciitisS/p surgical debridement and washout4/6: S/p right Sebastián Friedmanificant impairment in self-care, ADLs and functional mobilityImpaired mobility and gaitPostoperative painDiabetic polyneuropathyDKA, DM 2, poorly controlled, A1c greater than 14PADMRSA bacteremia/sepsis-treated on acuteAKISevere hyponatremia-resolvedHTNAcute on chronic anemia requiring multiple transfusionsLeft calf hematomaEdema and clinical arthritis left ankleProstatic abscess 4: S/p transrectal ultrasound aspiration of abscess and transurethral resection of prostate and unroofing of abscessDischarge diagnosis:Severe Gas gangrene right foot and right ankle associated with osteomyelitis andnecrotizing fasciitisS/p surgical debridement and washout4/: S/p right Sebastián Friedmanificant impairment in self-care, ADLs and functional mobilityImpaired mobility and gaitAcute postoperative pain right BKADiabetic polyneuropathyDKA, DM 2, poorly controlled, A1c greater than 14PADMRSA bacteremia/sepsis-treated on acuteAKISevere hyponatremia-resolvedHTNAcute on chronic anemia requiring multiple transfusions, possible GI bleedLeft calf hematomaEdema and clinical arthritis left ankleEarly decubitus to left heel/DTI dorsal left midfootProstatic abscess 4: S/p transrectal ultrasound aspiration of abscess and transurethral resection of prostate and unroofing of abscess09/12: Echo: EF 55-59%, grade 1 diastolic dysfunction09/02: JIMENA negative for vegetationMRSA OF NARES09/08:s/p EGD and colonoscopy. EGD showed mild gastritis. Colonoscopy showed rectal polyp that was resected by snare (tubular adenoma)-repeat colonoscopy in 5 yearsHospital course:56 yo HAM with long h/o DM, and HTN who was admitted for fever, flulike symptomsand altered mental status on 08/18. He was doing well until about 3 days prior toadmission when he noted blister to have formed on the dorsum of his foot. His foot started progressively getting more swollen and the blisters started enlarging and extending to his lateral foot and ankle. He started feeling weak and nauseated. He was noted to have altered mentation and was brought to our ER.He was noted to be in DKA with Blood sugars greater than 600. He was seen by podiatry and surgery for BLE wounds and infection. He was treated in ICU for sepsis and DKA. He underwent incisional and excisional debridement of right footand right ankle by podiatry. Patient also found to have prostate abscess underwent transrectal ultrasound aspiration of abscess and transurethral resection of prostate and unroofing of abscess by urology Dr. Du. Endocrinology treated the DKA and blood sugars much improved. Patient's right foot was not salvageable and patient underwent right BKA by Dr. LEROY on 08/28. Patient blood cultures showed MRSA. Patient continued on antibiotics as per ID. MRI of the pelvis and foot completed. Patient required multiple PRBCs for anemia. Patient was found to have a possible small hematoma of the left calf onultrasound. He complains of pain and swelling of the left ankle. Patient hemodynamically stable and plans are to be transferred to stepdown unit. He is on heparin subcu for VTE. After surgery he is now being mobilized by PT and OT.He is wearing a maxine-tech orthotic for right knee/BKA protection. Prior to admission the patient was independent living in a single-story house with his spouse with a few steps up to front and back door. 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 is at bedside. Patient denies nausea, vomiting, fever, chills, chest pain, shortness of breath with dizziness. He is requiring IV Dilaudid for pain control. Mental status back to baseline. Pt is progressing slowly with therapy d/t weakness and pain, self care deficit, decreased endurance and balance, and decreased functional mobility. Pt requiring acute inpt rehab for multidisciplinary team of nursing, therapy, and physicians. Pt iswilling and able to partici- kathleen in 3 hr/day inpt rehab to d/c home safely. Pt's prior level of function was independent. While here, patient worked hard withtherapist and made good functional progress. He had worsening renal function for a while, nephrology worked diligently to get his creatinine to improve back down to 1.7. He will go home with C[place]rena and follow-up with nephrology next week. Endocrinology also worked hard to keep glucoses under control especially while patient was taking prednisone. He usually takes pills at home for his diabetes but will be on insulin for at least a short while while tapering from steroids. I discussed these issues with Dr. Chapin today and he will write prescriptions for all insulins. Patient to be discharged this afternoonConsultants: cardiology, endocrinology, hospitalist, infectious disease, podiatryPt. condition on discharge: improvedAllergies:Allergies:No Known Allergies (Coded, 03/23/11) Discharge Instructions Discharge InstructionsDischarge to: Home Health wPlan of CareAdditional Discharge Routines: PCP Follow-Up, Lead Press Operator Follow-UpDiet: DiabeticActivity: As ToleratedPrescriptions: e-prescribeDischarge management: greater than 30 mins Follow-up AppointmentsPCP: PCP: No Primary or Family Physician PCP follow up timeframe: In 1-2 weeksConsulting provider 1: Provider 1: Barrera Ramírez MD Specialty: Nephrology Cnggrybcaq provider 2: Provider 2: Napoleon aPrham MD Specialty: CardiologyInterventional Vxxzuavqhv provider 3: Provider 3: Nixon Leroy MD Specialty: Orthopaedic Surgery at 0507 RPT #:[id number] OF REPORTDSDischarge wmvvqjs3124-78-35Z60:48:00G.[id number] ailable for patient tijvUBZYKEERYRPDTA3596-55-09X77:08:27 [facility] 2022-09-24 10:31:00 [id number] [id number] [id number]+E5AVOGH0ufxh2na876623-94-04S24:31:00 [facility] HospitalCardiology Progress NoteREPORT#:[id number] REPORT STATUS: SignedDATE:09/24/22 TIME: 1031 PATIENT: KARMA ROWLAND UNIT #: [id number]#: [id number] [address] [birth year] AGE: 56 SEX: M ATTEND: Mj Vences MDADM AUTHOR: Rohit Benitez 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 Chart reviewed. No new symptoms, feeling well. Denies chest pain, palpitations, or shortness of breath. [facility]. Objective GeneralVS/I O:24 hour I O ending at 0700: 09/24 0700 09/23 1900 Intake Total 240 Output Total 1500 1300 Balance -1260 -1300 Intake, Oral 240 Number 0 Incontinent Voids Number Voids 0 Output, Urine 1500 1300 Vital Signs: Date Time Temp Pulse Resp B/P B/P Pulse O2 O2 Flow FiO2 Mean Ox Delivery Rate 09/24 0009 97.9 87 16 160/81 107.5 97 Room air 09/23 1916 97.7 86 16 169/86 113.7 97 Room air 09/23 1521 97.5 82 16 159/82 107.6 97 PATIENT WEIGHT: Weight (lb): 167Weight (oz): 12.35Weight (kg): 76.100 Medications:Active Meds + DC'd Last 24 HrsPrednisone (predniSONE) 40 MG C BK PO Clonidine [...] Amlodipine Besylate (NORVASC) 10 MG DAILY PO (DC) Prednisone (predniSONE) 50 MG C BK PO (DC) Hydralazine HCl (APRESOLINE) 100 MG Q8HR PO Insulin Glargine (Semglee) 19 UNIT BEDTIME SUBQ (DC) Insulin Human Lispro (HUMALOG) 10 UNIT AC SUBQ (DC) Carvedilol (COREG) 25 MG C BK DIN PO Gabapentin (NEURONTIN) 100 MG Q8HR PO Oxycodone/Acetaminophen (PERCOCET 5/325MG TAB) 2 TAB Q4H PRN PRN PO Folic Acid (FOLIC ACID) 2 MG DAILY PO Multivitamins (TAB-A-MOHAN) 1 TAB DAILY PO Furosemide (LASIX 20MG INJ) 20 MG BLOOD-DOSE BETWEEN IV (CKD) Sodium Chloride (SODIUM CHLORIDE) 10 ML ASDIR IV Pantoprazole Sodium (PROTONIX) 40 MG Q12HR IV Polyethylene Glycol (MIRALAX) 17 GM DAILY PO Sennosides (Senna Lax 8.6 MG TABLET) 8.6 MG DAILY PO Sodium Chloride (SODIUM CHLORIDE) 10 ML ASDIR PRN IV Amitriptyline HCl (ELAVIL) 25 MG BEDTIME PO Zinc Oxide (ZINC OXIDE 30 GM OINTMENT) 1 APPLIC DAILY TOPICAL Sterile Water (WATER FOR IRRIGATION) DRESSING CHANGE ASDIR PRN IRR Insulin Human Lispro (HUMALOG) 0 AC HS SUBQ Dextrose/Water (DEXTROSE 10% IN WATER) 125 ML ASDIR PRN IV (CKD) Dextrose/Water (DEXTROSE 10% IN WATER) 250 ML ASDIR PRN IV (CKD) Glucagon (GLUCAGON) 1 MG ASDIR PRN IM Lidocaine (LIDODERM) 1 PATCH DAILY TOPICAL Acetaminophen (TYLENOL) 650 MG Q6H PRN PRN PO Bisacodyl (DULCOLAX) 10 MG DAILY PRN PRN RECTAL Docusate Sodium (COLACE) 100 MG Q12H PRN PRN PO Hydralazine HCl (APRESOLINE) 10 MG Q6H PRN PRN IV Ondansetron HCl (ZOFRAN) 4 MG Q6H PRN PRN IV Physical ExamGeneral appearance: alert, awake, orientedNeck: no bruit/NL carotids, no JVDCardiovascular: CV assessment: regular rate and rhythm, no ectopy, no gallopRespiratory: clear to auscultation, no distressAbdomen: soft, non-tenderGenitourinary: urinary catheterLower extremity: LE assessment: edema, normal temperatureNeuro/DIRECTOR OPERATING ROOM: alert, oriented X 3 Considered stroke alert: noWound/incision: Location:right bkaPsychiatry: normal affect, normal judgment/insight, normal mood ResultsFindings/Data:Laboratory Tests 09/24 09/24 09/23 09/23 09/23 0551 [...] % (Auto) (14.0 - 32.0 %) 14.8 [place] % (Auto) (4.8 - 9.0 %) 7.6 Eos % (Auto) (0.3 - 3.7 %) 3.0 Baso % (Auto) (0.0 - 2.0 %) 0.0 Neut # (Auto) (2.0 - 7.6 x10 3/uL) 9.62 H Lymph # (Auto) (1.0 - 3.8 x10 3/uL) 1.93 Lenoir # (Auto) (0.1 - 0.8 x10 3/uL) 0.99 H Eos # (Auto) (0.0 - 0.2 x10 3/uL) 0.39 H Baso # (Auto) (0.0 - 0.2 x10 3/uL) 0.00 Abs Immat Gran (auto) (0.00 - 0.03 x10 3/uL) 0.14 H Add Manual Diff NO Immature Gran % (0.0 - 2.0 %) 1.1 Nucleated RBC % (0 - 0 %) 0.0 Nucleated RBCs # (Man) (0.0 - 0.1 x10 3/uL) 0.00 Laboratory Tests 09/24 0540 Chemistry Magnesium (1.80 - 2.40 mg/dL) 2.18 Diagnosis, Assessment PlanConsultants: cardiology, endocrinology, hospitalist, infectious disease, podiatry Free Text DxA P NotesFree Text DxA P Notes:Impression: 1. Debility2. Infected right foot status post BKA3. Bacteremia4. Diabetes5. Hypertension 6. Anemia7. Acute Diastolic CHF8. ERIKA 07/2022: Echocardiogram with normal LVEF, grade 1 diastolic dysfunction, mildly dilated LA, and no significant valvular abnormalities Recommendation: Patient initially presented with DKA and sepsis. Diagnosed with right foot infection, underwent I D, now status post BKA. Patient had persistent bacteremia with MRSA, underwent JIMENA with negative findings of endocarditis. Patient now transferred to rehab for physical therapy. Known cardiac history ofhypertension and hyperlipidemia. Vital signs stable. Echocardiogram with normal LVEF, grade 1 diastolic dysfunction, mildly dilated LA, and no significant valvular abnormalities. Continue to monitor blood pressure trend. Continue wound care and IV antibiotic therapy. Continue PT/OT. Supportive care. 09/04: Patient complaining of shortness of breath, abdominal distention and lowerextremity edema. Renal function and electrolytes stable. Will give one-time dose of IV Lasix 40 mg. Blood pressure stable. Pending abdominal x-ray. Monitor intake and output. Check BMP in the morning. Supportive care. Plan ofcare discussed with patient, RN and Dr. Parham. 09/05: Patient responded well to IV Lasix, good urine output and improvement in shortness of breath. Chest x-ray ordered. Currently on Lasix 20 mg p.o. daily. Continue monitor renal function and electrolytes. Pending lower extremity Doppler for lower extremity edema. Continue PT/OT. Supportive care. Plan of care discussed with patient, RN and Dr. Parham. 09/08: Blood pressure has been elevated, started on Coreg 3.125 mg twice daily. Continue monitor blood pressure trend and adjust medication as needed. Still having left lower extremity edema, venous Doppler negative for DVT. continue gentle diuresis with Lasix 20 mg p.o. daily. Recommend Joan wrap. Patient remains anemic, plan for EGD/colonoscopy today. Supportive care. Plan of care discussed with patient, family, RN and Dr. Parham. 09/09: Patient doing well status post EGD/colonoscopy, negative findings for GI bleed. Blood pressure improving, increased on Coreg to 12.5 mg twice daily. Elevated creatinine noted, nephrology following. No new cardiac complaint. Continue wound care. Continue PT/OT. Supportive care. Plan of care discussed with patient, RN and Dr. Parham. 09/10: Blood pressure remained stable on current regimen of Coreg. Patient continue to have left lower extremity edema. Currently on Lasix 20 mg daily. Creatinine 1.9 today, continue to monitor. Patient's albumin level was 1.3, it is possible that patient's lower extremity edema could be related to hypoalbuminemia leading to third spacing. Continue PT/OT. Supportive care. Plan of care discussed with patient, RN and Dr. Parham. 09/11: Patient doing well from cardiac standpoint. Blood pressure well controlled. Improvement in lower extremity edema with elevating leg while in bed. Creatinine 2.0 today. Denies shortness of breath. Will hold diuretic for now and monitor renal function. Supportive care. Plan of care discussed with patient, RN and Dr. Parham. 09/12: Creatinine remains elevated at 2.4 today, antibiotic regimen also being adjusted. Patient still with lower extremity edema and rales on physical examination. Will check chest x-ray and limited echocardiogram for further evaluation. Check BNP. Continue hold diuretic for now. Supportive care. Planof care discussed with patient, RN and Dr. Parham. 09/15: Repeat echocardiogram showed LVEF of 55 to 60%, no regional wall motion abnormalities, left ventricular diastolic function parameters are indeterminate,mildly dilated LA, and no pericardial effusion. BNP elevated 297. Continue to hold diuretic due to Elevated creatinine, nephrology following and may consider renal biopsy. Continue to monitor fluid volume status. Overall improvement in lower extremity with Joan wrap. Continue physical therapy. Supportive care. Plan of care discussed with patient, RN and Dr. Parham. 09/16: Blood pressure slightly elevated, started on hydralazine 25 mg every 8 hours. Continue carvedilol monitor blood pressure trend. Cr. 2.7 today, continue monitor. Tolerating physical therapy. Euvolemic by physical examination. Supportive care. Plan of care discussed with patient, RN and Dr. Parham. 09/17: Blood pressure remains elevated, likely related to steroid therapy. Hydralazine increased to 50 mg 3 times daily. Nephrology managing diuretic therapy. Continue monitor renal function and electrolytes. Improvement in lower extremity swelling. Patient denies chest pain or shortness of breath. Tolerating PT/OT. Supportive care. Plan of care discussed with patient, RN andDr. Parham. 09/18: Blood pressure remains elevated due to steroid therapy. Continue monitor blood pressure trend, hydralazine increased to 75 mg 3 times daily. Responding to diuretic regimen with Lasix, good urine output. Creatinine improving, 2.2 today. Continue to monitor fluid volume status. Continue physical therapy. Supportive care. Plan of care discussed with patient, RN and Dr. Parham. 09/19: Blood pressure improving, continue hydralazine and carvedilol. Overall improvement in fluid volume status. No new cardiac complaint. Continue steroidtaper per nephrology. Progressing in therapy. Discharge planning. Supportive care. Plan of care discussed with patient, RN and Dr. Parham. 09/20: Patient doing much better since started on steroid therapy, creatinine is slowly improving, blood pressure overall improving, nephrology is adjusting antihypertensive medication regimen, diuretic regimen per nephrology, overall stable cardiac status, discussed with patient and . 09/21: Creatinine now below 2, at 1.9, blood pressure better controlled with carvedilol and hydralazine, fluid status is improving, continue diuretic regimenper nephrology, supportive care, will follow. 09/22: Patient remains from cardiac standpoint. Blood pressure elevated, startedon amlodipine 10 mg daily. Continue steroid therapy and diuretic per nephrology. Creatinine 1.8 today. Tolerating physical therapy. Discharge planning. Supportive care. Plan of care discussed with patient, RN and Dr. Parham. 09/23: Blood pressure improving on current regimen. Continue to monitor renal function, creatinine 2.1 today with elevated potassium, received Kayexalate. Tolerating physical therapy. Supportive care. Plan of care discussed with patient, RN and Dr. Parham. 09/24: Patient doing well, overall improvement in fluid volume status. Renal function stable. Blood pressure marginally controlled. Discharge planning for today. Okay to DC from cardiac standpoint with outpatient follow-up. Supportive care. Plan of care discussed with patient, RN and Dr. Parham. Napoleon Parham 09/27/22 1304:Diagnosis, Assessment PlanAdditional comments:Agree with above assessment and plan as documented by nurse practitioner, continue current management, will follow. at 1818 at 1655 RPT #:[id number] OF REPORTPRProgress [id number]:31:00G.[id number] able for patient kcdtULZLXYDBKHLORC3235-32-44U14:19:12 [facility] 2022-09-24 08:06:00 [id number] tSViIiYQMvN4Zy8iL6w3lizfVOVOm KQCiPyXq0A7qYERF3rgrrRBfYsO1276-03-28O19:06:00 [facility])Gastroenterology Progress NoteREPORT#:[id number] REPORT STATUS: SignedDATE:09/24/22 TIME: 805 PATIENT: KARMA ROWLAND UNIT #: [id number]#: [id number] [address] [birth year] AGE: 56 SEX: M ATTEND: Mj Vences [facility] AUTHOR: Kassie Avitia MD * ALL edits or amendments must be made on the electronic/computer document * SubjectiveHPI:Patient is a 56-year-old male with history of diabetes mellitus type 2 and hypertension who was initially admitted for altered mental status and right-sided foot infection. 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 The patient is anemic with current Hgb 7.1. He has received a total of 3 units pRBCs during this hospitalization. KUB on 09/04 was negative for acute GI process. The patient denies overt GIB, dark tarry stools, nausea, abdominal pain, or vomiting. He has never had EGD orcolonoscopy. 09/06: No complaints today. Hemoglobin stable. No overt GI bleed. Plan for colonoscopy and endoscopy on Thursday 09/07: No complaints today. No overt GI bleed. Planning for colonoscopy and endoscopy tomorrow 09/08: EGD mild gastritis. colonoscopy rectal polyp s/p snare. No other abnormalities 09/09: doing well. Seen at the gym. No bleeding. 09/10: Doing well. No bleeding. tolerating diet. Movig bowels 09/11: doing well. States his leg swelling is better. Tolerating diet. having normal BM 09/12: dooing well. doing work-out at the gym. Tolerating diet. Normal BMs. Stable H/H4/-Sitting up in wheelchair, family at bedside. Denies n/v/abd pain/GIB 09/15: Doing well. H/H stable. No melena or BRBPR. No nausea or vomiting. Appetite is well 09/16: doing well. no complaints. eating well 09/17: stable H/H. No complaints. 09/18/22: H/H fluctuating but overall stable 09/19: H/H stable up to 8 today. No complaints. 09/20: Hemoglobin relatively stable. No complaint 09/21: no complaints. feeling well 09/22/2022: doing well. looking forward to be discharged 09/23/22: stable H/H no bleeding. 09/24: No new events. Patient anticipating discharge soon. Patient was constipated and was given laxatives and resulted in multiple bowel movements. Objective Physical ExamHEENT: atraumatic, normocephalicNeck: full range of motion, non-tenderRespiratory: symmetric expansion, no distressAbdomen: non-tender, normal bowel sounds, soft, no distention, no guardingExtremities: right BKA Considered stroke alert: noSkin: dry Diagnosis, Assessment PlanFree Text A P:1. Positive FOBT-and anemia: The patient denies overt GIB, dark tarry stools, nausea, abdominal pain, or vomiting. He is not on anticoagulation therapy.-Continue PPI. The patient has never had EGD or colonoscopy prior to this admissions/p EGD and colonoscopy. EGD showed mild gastritis. Colonoscopy showed rectal polyp that was resected by snare. no evidence of bleeding. Pathology of polyp came back as tubular adenoma. recommend repeating colonoscopy in 5 years Anemia likely secondary to chronic kidney disease and mild oozing from his stump.Can consider video capsule endoscopy as outpt if evidence of dropping H/HH/H remains stable Consider reducing frequency of H/H checktolerating diet and moving his bowelsConstipation; laxative as neededWill follow along Consultants: cardiology, endocrinology, hospitalist, infectious disease, podiatry at 0807 RPT #:[id number] OF REPORTPRProgress [id number]:06:00G.[id number] able for patient dwffAJCRCPZQLPADDZ6497-27-70M80:07:38 [facility] 2022-09-24 08:04:00 [id number] x/[id number]+Kjn07QEiKrg43lNI fUgDcn/RbmVj897bQ9lIADKYRzg5729-48-63K33:04:00 [facility] ([facility])Hospitalist Progress NoteREPORT#:[id number] REPORT STATUS: SignedDATE:09/24/22 TIME: 0804 PATIENT: KARMA ROWLAND UNIT #: [id number]#: [id number] [address] [birth year] AGE: 56 SEX: M ATTEND: Mj Vences AUTHOR: Wilbert Ramires MD * ALL edits or amendments must be made on the electronic/computer document * SubjectiveChief complaint:follow up s/p BKA. feels ok Review of SystemsAll systems rev neg: except as noted Objective GeneralVS/I O:Vital Signs: Date Time Temp Pulse Resp B/P B/P Pulse O2 O2 Flow FiO2 Mean Ox Delivery Rate 09/24 0009 [...] Urine 1500 1300 PATIENT WEIGHT: Weight (lb): 167Weight (oz): 12.35Weight (kg): 76.100 Medications:Active Meds + DC'd Last 24 HrsPrednisone (predniSONE) 40 MG C BK PO Furosemide [...] Human Lispro (HUMALOG) 10 UNIT AC SUBQ (DC) Carvedilol (COREG) 25 MG C BK DIN PO Gabapentin (NEURONTIN) 100 MG Q8HR PO Oxycodone/Acetaminophen (PERCOCET 5/325MG TAB) 2 TAB Q4H PRN PRN PO Folic Acid (FOLIC ACID) 2 MG DAILY PO Multivitamins (TAB-A-MOHAN) 1 TAB DAILY PO Furosemide (LASIX 20MG INJ) 20 MG BLOOD-DOSE BETWEEN IV (CKD) Sodium Chloride (SODIUM CHLORIDE) 10 ML ASDIR IV Pantoprazole Sodium (PROTONIX) 40 MG Q12HR IV Polyethylene Glycol (MIRALAX) 17 GM DAILY PO Sennosides (Senna Lax 8.6 MG TABLET) 8.6 MG DAILY PO Sodium Chloride (SODIUM CHLORIDE) 10 ML ASDIR PRN IV Amitriptyline HCl (ELAVIL) 25 MG BEDTIME PO Zinc Oxide (ZINC OXIDE 30 GM OINTMENT) 1 APPLIC DAILY TOPICAL Sterile Water (WATER FOR IRRIGATION) DRESSING CHANGE ASDIR PRN IRR Insulin Human Lispro (HUMALOG) 0 AC HS SUBQ Dextrose/Water (DEXTROSE 10% IN WATER) 125 ML ASDIR PRN IV (CKD) Dextrose/Water (DEXTROSE 10% IN WATER) 250 ML ASDIR PRN IV (CKD) Glucagon (GLUCAGON) 1 MG ASDIR PRN IM Lidocaine (LIDODERM) 1 PATCH DAILY TOPICAL Acetaminophen (TYLENOL) 650 MG Q6H PRN PRN PO Bisacodyl (DULCOLAX) 10 MG DAILY PRN PRN RECTAL Docusate Sodium (COLACE) 100 MG Q12H PRN PRN PO Hydralazine HCl (APRESOLINE) 10 MG Q6H PRN PRN IV Ondansetron HCl (ZOFRAN) 4 MG Q6H PRN PRN IV Physical ExamGeneral appearance: alert, awake, orientedHead/Eyes: atraumatic, normocephalicENT: moist mucosal membranesNeck: no JVDCardiovascular: normal heart sounds, regular rate rhythmRespiratory: aerating well, clear to auscultationAbdomen: non-tender, normal bowel soundsGenitourinary: no bladder distentionExtremities: edema (1+ pitting edema to thigh), moves all, normal capillary refillMusculoskeletal: normal inspectionNeuro/DIRECTOR OPERATING ROOM: alert, oriented X 3, 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 Considered stroke alert: noSkin: dry, intactPsychiatry: normal affect, normal judgment/insight ResultsFindings/Data:Laboratory Tests 09/24 09/24 09/23 09/23 09/23 0551 [...] % (Auto) (14.0 - 32.0 %) 14.8 [place] % (Auto) (4.8 - 9.0 %) 7.6 Eos % (Auto) (0.3 - 3.7 %) 3.0 Baso % (Auto) (0.0 - 2.0 %) 0.0 Neut # (Auto) (2.0 - 7.6 x10 3/uL) 9.62 H Lymph # (Auto) (1.0 - 3.8 x10 3/uL) 1.93 [place] # (Auto) (0.1 - 0.8 x10 3/uL) 0.99 H Eos # (Auto) (0.0 - 0.2 x10 3/uL) 0.39 H Baso # (Auto) (0.0 - 0.2 x10 3/uL) 0.00 Abs Immat Gran (auto) (0.00 - 0.03 x10 3/uL) 0.14 H Add Manual Diff NO Immature Gran % (0.0 - 2.0 %) 1.1 Nucleated RBC % (0 - 0 %) 0.0 Nucleated RBCs # (Man) (0.0 - 0.1 x10 3/uL) 0.00 Diagnosis, Assessment PlanConsultants: cardiology, endocrinology, hospitalist, infectious disease, podiatry Free Text DxA P NotesFree text DxA P notes:Gangrene of right foot s/p Below- knee amputation Prostate abscessMRSA bacteremiaHx of Diabetes, Diabetic neuropathyHTNAKI PLANS: Continue with PT/OT per primary Wound care and Abx as per IDHepain PPXIV ironBS better but likely to increase with re-initiation of steroids x3 days started by Nephrology for AIN - Endo adjusting insulinpain controlEdema about the same, Lasix as per renalHgb stabilized. continue to monitorcardio followingcreatine improvingK+ level okBP remains elevated on Hydralazine, Coreg and Norvasc - will stop norvasc and add Clonidine 0.1mg po bid. HR in the 80's. continue prn BP meds at 1459 RPT #:[id number] OF REPORTPRProgress [id number]:04:00G.[id number] able for patient wlouCEBNHQRXJLAYOT2914-00-29Z66:00:26 [facility] 2022-09-24 06:58:00 [id number] xvD31kBbgscozT6iLLcTVqOV43Y1589-59-02R23:58:00 [facility] ([facility] Progress NoteREPORT#:[id number] REPORT STATUS: SignedDATE:09/24/22 TIME: 0658 PATIENT: KARMA ROWLAND UNIT #: [id number]#: [id number] [address] [birth year] AGE: 56 SEX: M ATTEND: RuMj B [facility] AUTHOR: Barrera Ramírez MD * ALL edits or amendments must be made on the electronic/computer document * SubjectiveChief complaint:Infected footHPI:Patient seen and evaluated on 09/09/2022, note started, records reviewed and orders placed on 09/08/2022, 56-year-old male with history of diabetes mellitus type 2, hypertension and peripheral vascular disease who was initially admitted to acute care with altered mental status and right foot infection/gangrene, 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 Patient had persistent anemia requiring blood transfusion. His fecal occult blood was positive and his creatinine was 1.2 and increased to 1.4 today, laboratories today showed hemoglobin 8.5, platelet 231, blood count 9.1, sodium 135, potassium 4.6, CO2 22, BUN 22, creatinine 1.4. Renal consult was requested for evaluation management of elevated BUN and creatinine and if his decreased GFR iscontributing to his anemia. Patient reports:Yes: complaints. Comments:Patient seen and evaluated, HPI no change from initial, feels okay. Review of SystemsConstitutional:Reports: fatigue. Denies: chills, fever. Skin:Denies: abrasion, bruising. Allergy/Immun:Denies: hives, itching. Eyes:Denies: redness, discharge. ENT:Denies: ear drainage, ear ringing. Respiratory:Denies: hemoptysis, SOB. Cardiovascular:Denies: chest pain, palpitations. Objective GeneralVS/I O:Vital Signs: Date Time Temp Pulse Resp B/P B/P Pulse O2 O2 Flow FiO2 Mean Ox Delivery Rate 09/24 0009 [...] Urine 1500 1300 PATIENT WEIGHT: Weight (lb): 167Weight (oz): 12.35Weight (kg): 76.100 MedicationsActive Meds + DC'd Last 24 HrsInsulin Glargine (Semglee) 22 UNIT BEDTIME SUBQ Insulin [...] Human Lispro (HUMALOG) 10 UNIT AC SUBQ (DC) Carvedilol (COREG) 25 MG C BK DIN PO Gabapentin (NEURONTIN) 100 MG Q8HR PO Oxycodone/Acetaminophen (PERCOCET 5/325MG TAB) 2 TAB Q4H PRN PRN PO Folic Acid (FOLIC ACID) 2 MG DAILY PO Multivitamins (TAB-A-MOHAN) 1 TAB DAILY PO Furosemide (LASIX 20MG INJ) 20 MG BLOOD-DOSE BETWEEN IV (CKD) Sodium Chloride (SODIUM CHLORIDE) 10 ML ASDIR IV Pantoprazole Sodium (PROTONIX) 40 MG Q12HR IV Polyethylene Glycol (MIRALAX) 17 GM DAILY PO Sennosides (Senna Lax 8.6 MG TABLET) 8.6 MG DAILY PO Sodium Chloride (SODIUM CHLORIDE) 10 ML ASDIR PRN IV Amitriptyline HCl (ELAVIL) 25 MG BEDTIME PO Zinc Oxide (ZINC OXIDE 30 GM OINTMENT) 1 APPLIC DAILY TOPICAL Sterile Water (WATER FOR IRRIGATION) DRESSING CHANGE ASDIR PRN IRR Insulin Human Lispro (HUMALOG) 0 AC HS SUBQ Dextrose/Water (DEXTROSE 10% IN WATER) 125 ML ASDIR PRN IV (CKD) Dextrose/Water (DEXTROSE 10% IN WATER) 250 ML ASDIR PRN IV (CKD) Glucagon (GLUCAGON) 1 MG ASDIR PRN IM Lidocaine (LIDODERM) 1 PATCH DAILY TOPICAL Acetaminophen (TYLENOL) 650 MG Q6H PRN PRN PO Bisacodyl (DULCOLAX) 10 MG DAILY PRN PRN RECTAL Docusate Sodium (COLACE) 100 MG Q12H PRN PRN PO Hydralazine HCl (APRESOLINE) 10 MG Q6H PRN PRN IV Ondansetron HCl (ZOFRAN) 4 MG Q6H PRN PRN IV Physical ExamGeneral appearance: alert, no acute distressHead/eyes: atraumatic, normocephalicENT: normal noseNeck: non-tender, supple/no meningismusCardiovascular: normal heart sounds, no rubRespiratory: aerating well, symmetric expansionAbdomen: non-tender, softGenitourinary: no flank painExtremities: non-tender, no edemaMusculoskeletal: no CVA tenderness, no tendernessNeuro/DIRECTOR OPERATING ROOM: alert, 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 Considered stroke alert: noSkin: dry, intact ResultsFindings/Data:Laboratory Tests 09/24 09/23 09/23 09/23 09/23 0551 [...] 09/22 09/21 09/21 0617 0436 0436 2047 1552Chemistry Sodium (134 - 147 mEq/L) 138 Potassium [...] 167 H 162 H Laboratory Tests 09/23 05 0501 0436 Hematology WBC (4.5 - 11.0 [...] - 32.0 %) 9.6 L 11.3 L [place] % (Auto) (4.8 - 9.0 %) 4.5 L 5.7 Eos % (Auto) (0.3 - 3.7 %) 0.1 L 0.2 L Baso % (Auto) (0.0 - 2.0 %) 0.1 0.0 Neut # (Auto) (2.0 - 7.6 x10 3/uL) 10.02 H 9.79 H Lymph # (Auto) (1.0 - 3.8 x10 3/uL) 1.13 1.35 [place] # (Auto) (0.1 - 0.8 x10 3/uL) 0.53 0.68 Eos # (Auto) (0.0 - 0.2 x10 3/uL) 0.01 0.02 Baso # (Auto) (0.0 - 0.2 x10 3/uL) 0.01 0.00 Abs Immat Gran (auto) (0.00 - 0.03 x10 3/uL) 0.11 H 0.13 H Add Manual Diff NO NO Immature Gran % (0.0 - 2.0 %) 0.9 1.1 Nucleated RBC % (0 - 0 %) 0.0 0.0 Nucleated RBCs # (Man) (0.0 - 0.1 x10 3/uL) 0.00 0.00 Laboratory Tests 09/24 09/23 09/23 09/23 0551 1913 1520 1050 Chemistry POC Glucose (70 - 110 MG/DL) 176 H 194 H 146 H 231 H Diagnosis, Assessment PlanFree Text A P:Patient seen and evaluated, discussed with care team, images and laboratories reviewed.Diabetes mellitus: Insulin: Monitor blood sugar closely and adjust medications as needed, followed by endocrinology.Hypertension: Blood pressure is not well controlled, increase Coreg to 12.5 mg p.o. twice daily: Monitor blood pressure closely and adjust medications as neededRight foot gangrene/infection status post right BKAAnemia: Status post EGD and colonoscopy which were negative for active GI bleeding, patient had work-up in July 2022 which showed very high B12, normal folate, very low iron saturation but very high ferritin which was likely relatedto his infection, likely patient is very iron deficient, will repeat lab and give IV iron if needed. We will check serum immunofixation.Acute kidney injury: We will check renal bladder ultrasound, check postvoid residual, check urine protein creatinine ratioHypomagnesemia: We will supplement09/10/2022 laboratory this morning showed sodium 135, potassium 4.2, CO2 21, BUN 25, creatinine 1.9 continues to worsen, etiology unclear, however his development some eosinophilia not sure if he is developing AIN, suggest changingcefepime to a different class of antibiotic if possible, will check renal bladder ultrasound09/11/2022 laboratory this morning showed sodium 134, potassium 4.3, CO2 22, BUN 26, creatinine 2 up from 1.9, hopefully creatinine is plateauing, renal ultrasound negative.09/12/2022 laboratory this morning showed sodium 134, potassium 4.2, CO2 20, BUN 31, creatinine 2.4 continues to worsen, discussed with ID, AIN is probably the etiology of the unexplained deterioration of his renal function, antibiotics to be adjusted by infectious disease, will give Solu-Medrol 125 mg IV daily for 3 days. Significant lower extremity edema, will start Lasix 20 mg p.o. twice daily.09.13.23: pt was seen and examined. Very thirsty. serum creatinine is worsening today. Vancomycin was stopped yesterday and Solu medrol was started. Mild hypovolemic hyponatremia. Will DC lasix and monitor his renal functions. BP is well controlled. 23: pt was seen and examined. Feels better but still thirsty. I stopped hislasix. will start NS at 75 cc for one Leter only. serum creatinine is improving.Received three doses of Solu Medrol a well. BP is on the higher side, likely secondary to steroids. will monitor for now. mild hypovelmic hyponatremia. also could be secondary to hyperglycemia. 09/15/2022 we will give additional dose of Solu-Medrol 125 mg IV today, laboratory this morning showed sodium 132, potassium 4.7, CO2 17, chloride 105, BUN 38, creatinine 2.9, glucose 312, hemoglobin 8.2, platelet 341, blood count 8.7, needs better blood sugar control, if creatinine does not start improving the next couple days will plan for kidney biopsy09/16/2022 laboratory this morning showed sodium 135, potassium 4.5, CO2 20, BUN 60, creatinine 2.7, better down from 2.9, hemoglobin 7.6, platelet 360, blood count 9.5, will give prednisone 80 mg p.o. today, blood pressure is elevated, will add hydralazine 25 mg p.o. 3 times daily, scrotal and LE swelling will giveLasix 40 mg IV x blood pressure still elevated, will increase hydralazine to 50 mg p.o.3 times daily, will give 80 mg of prednisone today, urine output with Lasix 4125, laboratory this morning showed sodium 136, potassium 4.5, CO2 21, BUN 66, creatinine 2.4 down from 2.7, will give 3 more doses of IV Lasix 40 mg every 8 hours09/18/2022 laboratory this morning showed sodium 138, potassium 4.1, CO2 21, BUN 66, creatinine 2.2 continues to improve, urine output 2.7 L, hemoglobin 7.6, platelet 341, blood count 10.6, will give Lasix 40 mg IV every 8 for 3 doses, start prednisone 60 mg p.o. daily for 3 days, increase hydralazine to 75 mg p.o.3 times daily.09/19/2022 blood pressure better, sodium 139, potassium 3.8, CO2 22, BUN 72 up from 66, creatinine 2.3 up from 2.2, will hold off diuretics, urine output reported 2 L, magnesium 1.69 we will give magnesium sulfate 2 g IV x1, continue prednisone.09/20/2022 laboratory this morning showed sodium 136, potassium 4.2, CO2 21, BUN 76, creatinine 2.2 down from 2.3, hemoglobin 7.6, platelet 302, blood count 12.3, continue off diuretics09/21/2022 blood pressure still elevated will increase hydralazine to 100 mg p.o.3 times daily, hemoglobin 7.6, platelet 296, blood count 13, urine output reported 3025, will start prednisone 50 mg p.o. daily for 3 days, sodium 137, potassium 4.6, CO2 22, BUN 75, creatinine 1.9 down from 2.2 continues to improve.09/22/2022 laboratory this morning showed sodium 138, potassium 5.1, CO2 20, BUN 71, creatinine 1.8 down from 1.9 continues to improve, continue prednisone, hemoglobin 7.7, platelet 305, blood count 12, blood pressure still elevated willadd Norvasc 10 mg p.o. daily.09/23/2022 laboratory this morning showed sodium 138, potassium 5.6 we will give Kayexalate 30 g p.o. x2 doses, CO2 19 trending down, will start sodium bicarbonate 1 p.o. twice daily, BUN 70, creatinine 2.1, if creatinine continues to be elevated, will schedule kidney biopsy, hemoglobin 7.8, platelet 306, bloodcount 11. laboratory this morning showed sodium 144, potassium 5 better, CO2 19 continues sodium bicarbonate, BUN 60 down from 70, creatinine 1.7 down from 2.1,will start Lasix 20 mg p.o. daily, prednisone 40 mg p.o. daily starting tomorrow, okay for discharge home from renal standpoint on 40 mg of prednisone with 5 mgtaper every 4 days until off prednisone, sodium bicarbonate 650 mg p.o. 1 twice a day and Lasix 20 mg p.o. daily. Follow-up in clinic in 2 weeks with labs.Consultants: cardiology, endocrinology, hospitalist, infectious disease, podiatry at 0948 RPT #:[id number] OF REPORTPRProgress [id number]:58:00G.[id number] able for patient [id number]:48:34 [facility] 2022-09-23 19:59:00 [id number] [id number]+/[id number]/FEwF/yfJ4wuEhlQ OFKslbe8wED6SEgC/3HdbfXzV1Q4769-22-08I19:59:00 [facility] ([facility])Podiatry Progress NoteREPORT#:[id number] REPORT STATUS: SignedDATE:09/23/22 TIME: 1958 PATIENT: KARMA ROWLAND UNIT #: [id number]#: [id number] [address] AGE: 56 SEX: M ATTEND: Mj Vences AUTHOR: Liam Pedersen DPM * ALL edits or amendments must be made on the electronic/computer document * SubjectiveChief complaint:left heel ulcer. left ankle painPatient reports: no confusion, no dizziness, no fatigue, no itching, no nausea Objective GeneralVS:Last Documented: Result Date Time Pulse Ox 97 09/24 1915 B/P 169/86 09/24 1915 B/P Mean 113.7 09/24 1915 O2 Delivery Room air 09/24 1915 Temp 36.5 09/24 1915 Pulse 86 09/24 1915 Resp 16 09/24 1915 O2 Flow Rate 2 09/08 1322 PATIENT WEIGHT: Weight (lb): 167Weight (oz): 12.35Weight (kg): 76.100 Medications:Active Meds + DC'd Last 24 HrsInsulin Glargine (Semglee) 22 UNIT BEDTIME SUBQ Insulin [...] Human Lispro (HUMALOG) 10 UNIT AC SUBQ (DC) Carvedilol (COREG) 25 MG C BK DIN PO Gabapentin (NEURONTIN) 100 MG Q8HR PO Oxycodone/Acetaminophen (PERCOCET 5/325MG TAB) 2 TAB Q4H PRN PRN PO Folic Acid (FOLIC ACID) 2 MG DAILY PO Multivitamins (TAB-A-MOHAN) 1 TAB DAILY PO Furosemide (LASIX 20MG INJ) 20 MG BLOOD-DOSE BETWEEN IV (CKD) Sodium Chloride (SODIUM CHLORIDE) 10 ML ASDIR IV Pantoprazole Sodium (PROTONIX) 40 MG Q12HR IV Polyethylene Glycol (MIRALAX) 17 GM DAILY PO Sennosides (Senna Lax 8.6 MG TABLET) 8.6 MG DAILY PO Sodium Chloride (SODIUM CHLORIDE) 10 ML ASDIR PRN IV Amitriptyline HCl (ELAVIL) 25 MG BEDTIME PO Zinc Oxide (ZINC OXIDE 30 GM OINTMENT) 1 APPLIC DAILY TOPICAL Sterile Water (WATER FOR IRRIGATION) DRESSING CHANGE ASDIR PRN IRR Insulin Human Lispro (HUMALOG) 0 AC HS SUBQ Dextrose/Water (DEXTROSE 10% IN WATER) 125 ML ASDIR PRN IV (CKD) Dextrose/Water (DEXTROSE 10% IN WATER) 250 ML ASDIR PRN IV (CKD) Glucagon (GLUCAGON) 1 MG ASDIR PRN IM Lidocaine (LIDODERM) 1 PATCH DAILY TOPICAL Acetaminophen (TYLENOL) 650 MG Q6H PRN PRN PO Bisacodyl (DULCOLAX) 10 MG DAILY PRN PRN RECTAL Docusate Sodium (COLACE) 100 MG Q12H PRN PRN PO Hydralazine HCl (APRESOLINE) 10 MG Q6H PRN PRN IV Ondansetron HCl (ZOFRAN) 4 MG Q6H PRN PRN IV I O:24 hour I O ending at 0700: 05/02 0700 05/01 1900 Intake Total 240 1000 Output Total 700 Balance 240 300 Intake, Oral 240 1000 Number 0 Incontinent Voids Number Voids 0 Output, Urine 700 Output, 0 Urine/Stool Mix Dietitian nutrition assessmentThe data set between the solid lines has been imported from the dietitian's assessment. BMI Calculated: 27.1Nutrition related diagnosis: Nutrition diagnosis details: Nutrition problem: Altered nutrition labsNutrition etiology: DMNutrition signs and symptoms: HYPER/HYPOGLYCEMIA, A1C >14Nutrition prescription: CONTINUE RENAL DM DIETDietitian name: You Palmer DIETAssessment completed: 09/18/22 Physical ExamGeneral appearance: alert, awake, orientedWound/incision: Location:left foot Site condition: dp/pt 2/4 left. light touch decreased left foot. ulcer starting at posterior left heel. eccymosis noted. early likely stage 1. left ankle has edema. pain with aggressive ROM left ankle. dorsal left midfoot is starting to have tissue injuryLE vascular pulse assess:2+ L posterior tibialis, 2+ L dorsalis pedis Considered stroke alert: noUlcer: Location: DTI dorsal left midfoot ResultsFindings/Data:Laboratory Tests: 09/23 09/23 09/23 09/23 09/23 1913 1520 1050 0516 0501Chemistry Sodium (134 - 147 mEq/L) 138 Potassium [...] 5.2 H Magnesium (1.80 - 2.40 mg/dL) 2.22Hematology WBC (4.5 - 11.0 x10 3/uL) 11.8 [...] (Auto) (14.0 - 32.0 %) 9.6 L [place] % (Auto) (4.8 - 9.0 %) 4.5 L Eos % (Auto) (0.3 - 3.7 %) 0.1 L Baso % (Auto) (0.0 - 2.0 %) 0.1 Neut # (Auto) (2.0 - 7.6 x10 3/uL) 10.02 H Lymph # (Auto) (1.0 - 3.8 x10 3/uL) 1.13 [place] # (Auto) (0.1 - 0.8 x10 3/uL) 0.53 Eos # (Auto) (0.0 - 0.2 x10 3/uL) 0.01 Baso # (Auto) (0.0 - 0.2 x10 3/uL) 0.01 Abs Immat Gran (auto) (0.00 - 0.03 0.11 Hx10 3/uL) Add Manual Diff NO Immature Gran % (0.0 - 2.0 %) 0.9 Nucleated RBC % (0 - 0 %) 0.0 Nucleated RBCs # (Man) (0.0 - 0.1 0.00x10 3/uL) 09/23 0331 Chemistry POC Glucose (70 - 110 MG/DL) 190 H Diagnosis, Assessment PlanFree Text A P:DM with neuropathyearly decub ulcer left heelOA/edema left ankleearly ulcer/DTI dorsal left midfoot zinc oxide to foot and heelfoam to heelon IV abxon PO gabapentinoffloading bootace wraps to ankle, only when OOB with therapy.zinc oxide interchange with bactroban to dorsal left foot Consultants: cardiology, endocrinology, hospitalist, infectious disease, podiatry at 1959 RPT #:[id number] OF REPORTPRProgress [id number]:59:00G.[id number] able for patient spurFWJOZUFJOODYHX4500-15-24W19:00:10 [facility] 2022-09-23 15:10:00 [id number] [facility]/[id number] vgw2X9ZVkdlHWMef4xXj1gkzi0T7853-76-62A33:10:00 [facility] ([facility])Pain Management Progress NoteREPORT#:[id number] REPORT STATUS: SignedDATE:09/23/22 TIME: 1509 PATIENT: KARMA ROWLAND UNIT #: [id number]#: [id number] [address] [birth year] AGE: 56 SEX: M ATTEND: Mj Vences [facility] AUTHOR: Ben Klein * ALL edits or amendments must be made on the electronic/computer document * Ben Klein 09/23/221509:SubjectiveChief complaint:Patient seen and examined. Chart/MAR reviewed. Patient slept well overnight. No acute concerns. Pain control is good. No aggravating neuropathy symptoms or muscle spasms. Patient being seen for Acute postoperative pain, right foot and anklegangrene, requiring BKA, Neuropathy, Constipation Patient is still requiring medications to help with managing currentproblems. No fever/chills, chest pain, orthopnea, nausea/vomiting, pruritus, orhallucinations.14 point ROS undertaken unremarkable except as noted Objective GeneralVS/I O:Vital Signs Date Temp Pulse Resp B/P B/P Mean Pulse Ox FiO2 09/22-09/23 36.3-37.2 84-90 16-18 122-149/64-74 83.1-98.0 96-100 Last [...] 0 Urine/Stool Mix PATIENT WEIGHT: Weight (lb): 167Weight (oz): 12.35Weight (kg): 76.100 Medications:Active Meds + DC'd Last 24 HrsInsulin Glargine (Semglee) 22 UNIT BEDTIME SUBQ Insulin [...] Human Lispro (HUMALOG) 10 UNIT AC SUBQ (DC) Carvedilol (COREG) 25 MG C BK DIN PO Gabapentin (NEURONTIN) 100 MG Q8HR PO Oxycodone/Acetaminophen (PERCOCET 5/325MG TAB) 2 TAB Q4H PRN PRN PO Folic Acid (FOLIC ACID) 2 MG DAILY PO Multivitamins (TAB-A-MOHAN) 1 TAB DAILY PO Furosemide (LASIX 20MG INJ) 20 MG BLOOD-DOSE BETWEEN IV (CKD) Sodium Chloride (SODIUM CHLORIDE) 10 ML ASDIR IV Pantoprazole Sodium (PROTONIX) 40 MG Q12HR IV Polyethylene Glycol (MIRALAX) 17 GM DAILY PO Sennosides (Senna Lax 8.6 MG TABLET) 8.6 MG DAILY PO Sodium Chloride (SODIUM CHLORIDE) 10 ML ASDIR PRN IV Amitriptyline HCl (ELAVIL) 25 MG BEDTIME PO Zinc Oxide (ZINC OXIDE 30 GM OINTMENT) 1 APPLIC DAILY TOPICAL Sterile Water (WATER FOR IRRIGATION) DRESSING CHANGE ASDIR PRN IRR Insulin Human Lispro (HUMALOG) 0 AC HS SUBQ Dextrose/Water (DEXTROSE 10% IN WATER) 125 ML ASDIR PRN IV (CKD) Dextrose/Water (DEXTROSE 10% IN WATER) 250 ML ASDIR PRN IV (CKD) Glucagon (GLUCAGON) 1 MG ASDIR PRN IM Lidocaine (LIDODERM) 1 PATCH DAILY TOPICAL Acetaminophen (TYLENOL) 650 MG Q6H PRN PRN PO Bisacodyl (DULCOLAX) 10 MG DAILY PRN PRN RECTAL Docusate Sodium (COLACE) 100 MG Q12H PRN PRN PO Hydralazine HCl (APRESOLINE) 10 MG Q6H PRN PRN IV Ondansetron HCl (ZOFRAN) 4 MG Q6H PRN PRN IV Physical ExamGeneral appearance: alert, awake, oriented, no acute distressHead/eyes: atraumatic, EOMI, normocephalic, normal conjunctiva/sclera, PERRLAENT: normal nose, normal pharynx, moist mucosal membranesNeck: full range of motion, no lymphadenopathy, supple/no meningismusCardiovascular: regular rate rhythmRespiratory: aerating wellAbdomen: soft, non-tender, no distention, active bowel sounds in all quarants. 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: 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, no sensory deficits, CNII-XII grossly intact Considered stroke alert: noSkin: dry, intact, no rashLymphatics: axilla normalPsychiatry: normal affect, normal judgment/insight ResultsFindings/data:Laboratory Tests: 09/23 09/23 09/23 09/23 09/22 1050 0516 0501 0331 1841Chemistry Sodium (134 - 147 mEq/L) 138 Potassium [...] 5.2 H Magnesium (1.80 - 2.40 mg/dL) 2.22Hematology WBC (4.5 - 11.0 x10 3/uL) 11.8 [...] (Auto) (14.0 - 32.0 %) 9.6 L [place] % (Auto) (4.8 - 9.0 %) 4.5 L Eos % (Auto) (0.3 - 3.7 %) 0.1 L Baso % (Auto) (0.0 - 2.0 %) 0.1 Neut # (Auto) (2.0 - 7.6 x10 3/uL) 10.02 H Lymph # (Auto) (1.0 - 3.8 x10 3/uL) 1.13 [place] # (Auto) (0.1 - 0.8 x10 3/uL) 0.53 Eos # (Auto) (0.0 - 0.2 x10 3/uL) 0.01 Baso # (Auto) (0.0 - 0.2 x10 3/uL) 0.01 Abs Immat Gran (auto) (0.00 - 0.03 0.11 Hx10 3/uL) Add Manual Diff NO Immature Gran % (0.0 - 2.0 %) 0.9 Nucleated RBC % (0 - 0 %) 0.0 Nucleated RBCs # (Man) (0.0 - 0.1 0.00x10 3/uL) 09/22 1537 Chemistry POC Glucose (70 - 110 MG/DL) 118 H Diagnosis, Assessment PlanFree text A P:A/P:Patient is a 56 year old male who presents with: Past Medical History: Prostate abscess, right foot foot and ankle gangrene, diabetes, hypertension, hyperlipidemiaPast Surgical History: TURP, right BKAFamily History: NoncontributorySocial History: Denies tobacco, alcohol, or drug useAllergies: NKDA Recent prostate abscess-Status post TURP with unroofing of abscess-IV antibiotics with vancomycin until 09-24-2022 Acute postoperative pain, right foot and ankle gangrene, requiring BKA-Patient is at risk for further amputations or loss of limb due to comorbid conditions-Status post right BKA 08/28/2022-DC Sheldon 10/325 1 tablet p.o. every 4 hours as needed pain scale 4 10-DC Dilaudid 0.5 mg IV daily as needed pain scale 7 10, second line therapy (09/13)-Tylenol 650 mg p.o. every 6 hours as needed pain scale 1 3-Percocet 10/325mg every 4 hours as needed, pain scale 4-10 (09/10)-Lidoderm patch to left ankle daily-IV antibiotics with vancomycin until 09-24-2022-Local wound care-manageable Diabetic peripheral neuropathy-amitriptyline 25mg PO QHS-Gabapentin 100mg every 8 hours (09/10)-manageable Hypertension-We will monitor hypertension and tachycardia due to pain, and hypotension as well as bradycardia secondary over sedation with narcotics-Hydralazine as needed Elevated LFTs-08/20/22-AST 51, ALT 22-09/03/2022-AST 15, ALT 7-Patient will require close monitoring since he is using narcotics with Tylenol Impaired functional mobility, balance, gait, and endurance-PT/OT Antalgic/Impaired gait-PT/OT-Improve strength, endurance, self-care, gait, balance, ADLs-Fall precautions per unit protocol-Pain medications as outlined above Constipation-We will monitor while utilizing opioid narcotic medications.-Adequate fluid intake also discussed.-Colace 100 mg p.o. twice daily as needed-Dulcolax 10 mg rectally daily as needed-Senna lax 8.6mg daily-Miralax 17gm daily-manageable Disposition: percocet 10/325mg q6h prn pain , gabapentin 100mg q8h sent to [facility]/pharmacy #[id number] [place] [address] ([facility] [address]) Patient has failed conservative medical therapy.Patient will require monitoring while utilize narcotic medications for any adverse effects, and will adjust as neededPlan of care discussed with patient and nurseAll diagnostics of last 24 hours been reviewed. Risks versus benefits of opioid medications were reviewed to include, but not limited to respiratory depression, accidental overdose, altered mental status, sudden , constipation which could result in bowel obstruction, seizures, withdrawal, dependency addiction, risk for falls. Case discussed with Dr Ng whom agrees. Thank you for the consultation. [place] [employer] OFFICER:-database searched, no information found Kingsley Ng 10/09/22 1320:Attestations Physician AttestationAgree w/findings plan:The patient was seen and examined by Ben Klein. I personally developed the care plan, which was continued by the mid-level provider. I was immediately available. at 1512 at 1320 RPT #:[id number] OF REPORTPRProgress [id number]:10:00G.[id number] able for patient [id number]:12:54 [facility] 2022-09-23 14:49:00 [id number] FERi2gsAzznDjttZvtPlgZ8FWYO9025-51-33U99:49:00 [facility])Endocrinology Progress NoteREPORT#:[id number] REPORT STATUS: SignedDATE:09/23/22 TIME: 1449 PATIENT: KARMA ROWLAND UNIT #: [id number]#: [id number] [address] AGE: 56 SEX: M ATTEND: Mj Vences [facility] AUTHOR: Braxton Chapin MD * ALL edits or amendments must be made on the electronic/computer document * SubjectivePatient reports: no complaints Objective GeneralVS:Last Documented: Result Date Time Pulse Ox 98 09/23 724 B/P 149/69 09/23 724 B/P Mean 95.3 09/23 724 Temp 36.3 09/23 724 Pulse 88 09/23 724 Resp 17 05/02 0725 O2 Delivery Room air 09/22 2310 O2 Flow Rate 2 09/08 1322 PATIENT WEIGHT: Weight (lb): 167Weight (oz): 12.35Weight (kg): 76.100 Medications:Active Meds + DC'd Last 24 HrsSodium Bicarbonate (SODIUM BICARBONATE) 650 MG BID PO [...] Furosemide (LASIX 20MG INJ) 20 MG BLOOD-DOSE BETWEEN IV (CKD) Sodium Chloride (SODIUM CHLORIDE) 10 ML ASDIR IV Pantoprazole Sodium (PROTONIX) 40 MG Q12HR IV Polyethylene Glycol (MIRALAX) 17 GM DAILY PO Sennosides (Senna Lax 8.6 MG TABLET) 8.6 MG DAILY PO Sodium Chloride (SODIUM CHLORIDE) 10 ML ASDIR PRN IV Amitriptyline HCl (ELAVIL) 25 MG BEDTIME PO Zinc Oxide (ZINC OXIDE 30 GM OINTMENT) 1 APPLIC DAILY TOPICAL Sterile Water (WATER FOR IRRIGATION) DRESSING CHANGE ASDIR PRN IRR Insulin Human Lispro (HUMALOG) 0 AC HS SUBQ Dextrose/Water (DEXTROSE 10% IN WATER) 125 ML ASDIR PRN IV (CKD) Dextrose/Water (DEXTROSE 10% IN WATER) 250 ML ASDIR PRN IV (CKD) Glucagon (GLUCAGON) 1 MG ASDIR PRN IM Lidocaine (LIDODERM) 1 PATCH DAILY TOPICAL Acetaminophen (TYLENOL) 650 MG Q6H PRN PRN PO Bisacodyl (DULCOLAX) 10 MG DAILY PRN PRN RECTAL Docusate Sodium (COLACE) 100 MG Q12H PRN PRN PO Hydralazine HCl (APRESOLINE) 10 MG Q6H PRN PRN IV Ondansetron HCl (ZOFRAN) 4 MG Q6H PRN PRN IV Physical ExamGeneral appearance: alert, awake Diagnosis, Assessment [facility] to date:Laboratory Tests: 09/23 09/23 09/23 09/23 09/22 1050 0516 0501 0331 1841Chemistry Sodium (134 - 147 mEq/L) 138 Potassium [...] 5.2 H Magnesium (1.80 - 2.40 mg/dL) 2.22Hematology WBC (4.5 - 11.0 x10 3/uL) 11.8 [...] (Auto) (14.0 - 32.0 %) 9.6 L [place] % (Auto) (4.8 - 9.0 %) 4.5 L Eos % (Auto) (0.3 - 3.7 %) 0.1 L Baso % (Auto) (0.0 - 2.0 %) 0.1 Neut # (Auto) (2.0 - 7.6 x10 3/uL) 10.02 H Lymph # (Auto) (1.0 - 3.8 x10 3/uL) 1.13 [place] # (Auto) (0.1 - 0.8 x10 3/uL) 0.53 Eos # (Auto) (0.0 - 0.2 x10 3/uL) 0.01 Baso # (Auto) (0.0 - 0.2 x10 3/uL) 0.01 Abs Immat Gran (auto) (0.00 - 0.03 0.11 Hx10 3/uL) Add Manual Diff NO Immature Gran % (0.0 - 2.0 %) 0.9 Nucleated RBC % (0 - 0 %) 0.0 Nucleated RBCs # (Man) (0.0 - 0.1 0.00x10 3/uL) 09/22 1537 Chemistry POC Glucose (70 [...] (Auto) (14.0 - 32.0 %) 11.3 L [place] % (Auto) (4.8 - 9.0 %) 5.7 Eos % (Auto) (0.3 - 3.7 %) 0.2 L Baso % (Auto) (0.0 - 2.0 %) 0.0 Neut # (Auto) (2.0 - 7.6 x10 3/uL) 9.79 H Lymph # (Auto) (1.0 - 3.8 x10 3/uL) 1.35 [place] # (Auto) (0.1 - 0.8 x10 3/uL) 0.68 Eos # (Auto) (0.0 - 0.2 x10 3/uL) 0.02 Baso # (Auto) (0.0 - 0.2 x10 3/uL) 0.00 Abs Immat Gran (auto) (0.00 - 0.03 x10 3/uL) 0.13 H Add Manual Diff NO Immature Gran % (0.0 - 2.0 %) 1.1 Nucleated RBC % (0 - 0 %) 0.0 Nucleated RBCs # (Man) (0.0 - 0.1 x10 3/uL) 0.00 Laboratory Tests: 09/21 09/21 09/21 09/21 09/21 1552 1437 1107 0530 0500Chemistry Sodium (134 - 147 mEq/L) 137 Potassium [...] 5.0 H Magnesium (1.80 - 2.40 mg/dL) 2.06Hematology WBC (4.5 - 11.0 x10 3/uL) 13.0 [...] (Auto) (14.0 - 32.0 %) 11.3 L [place] % (Auto) (4.8 - 9.0 %) 5.3 Eos % (Auto) (0.3 - 3.7 %) 0.2 L Baso % (Auto) (0.0 - 2.0 %) 0.1 Neut # (Auto) (2.0 - 7.6 x10 3/uL) 10.70 H Lymph # (Auto) (1.0 - 3.8 x10 3/uL) 1.47 [place] # (Auto) (0.1 - 0.8 x10 3/uL) 0.69 Eos # (Auto) (0.0 - 0.2 x10 3/uL) 0.03 Baso # (Auto) (0.0 - 0.2 x10 3/uL) 0.01 Abs Immat Gran (auto) (0.00 - 0.03 0.12 Hx10 3/uL) Add Manual Diff NO Immature Gran % (0.0 - 2.0 %) 0.9 Nucleated RBC % (0 - 0 %) 0.0 Nucleated RBCs # (Man) (0.0 - 0.1 0.00x10 3/uL) Laboratory Tests: 09/20 09/20 09/20 09/20 09/19 1140 0922 0505 0458 1921Chemistry Sodium (134 - 147 mEq/L) 136 Potassium [...] 5.4 H Magnesium (1.80 - 2.40 mg/dL) 2.05Hematology WBC (4.5 - 11.0 x10 3/uL) 12.3 [...] (Auto) (14.0 - 32.0 %) 13.0 L [place] % (Auto) (4.8 - 9.0 %) 6.2 Eos % (Auto) (0.3 - 3.7 %) 0.2 L Baso % (Auto) (0.0 - 2.0 %) 0.1 Neut # (Auto) (2.0 - 7.6 x10 3/uL) 9.84 H Lymph # (Auto) (1.0 - 3.8 x10 3/uL) 1.60 [place] # (Auto) (0.1 - 0.8 x10 3/uL) 0.76 Eos # (Auto) (0.0 - 0.2 x10 3/uL) 0.03 Baso # (Auto) (0.0 - 0.2 x10 3/uL) 0.01 Abs Immat Gran (auto) (0.00 - 0.03 0.10 Hx10 3/uL) Add Manual Diff NO Immature Gran % (0.0 - 2.0 %) 0.8 Nucleated RBC % (0 - 0 %) 0.0 Nucleated RBCs # (Man) (0.0 - 0.1 0.00x10 3/uL) Laboratory Tests: 09/19 09/19 09/19 09/18 09/18 1133 0501 0448 2151 1933Chemistry Sodium (134 - 147 mEq/L) 139 Potassium [...] H Magnesium (1.80 - 2.40 mg/dL) 1.69 LHematology WBC (4.5 - 11.0 x10 3/uL) 13.3 [...] % (Auto) (14.0 - 32.0 %) 16.5 [place] % (Auto) (4.8 - 9.0 %) 8.4 Eos % (Auto) (0.3 - 3.7 %) 2.4 Baso % (Auto) (0.0 - 2.0 %) 0.2 Neut # (Auto) (2.0 - 7.6 x10 3/uL) 9.50 H Lymph # (Auto) (1.0 - 3.8 x10 3/uL) 2.19 [place] # (Auto) (0.1 - 0.8 x10 3/uL) 1.11 H Eos # (Auto) (0.0 - 0.2 x10 3/uL) 0.32 H Baso # (Auto) (0.0 - 0.2 x10 3/uL) 0.02 Abs Immat Gran (auto) (0.00 - 0.03 0.14 Hx10 3/uL) Add Manual Diff NO Immature Gran % (0.0 - 2.0 %) 1.1 Nucleated RBC % (0 - 0 %) 0.0 Nucleated RBCs # (Man) (0.0 - 0.1 0.00x10 3/uL) 09/18 161 Chemistry POC Glucose (70 [...] % (Auto) (14.0 - 32.0 %) 17.4 [place] % (Auto) (4.8 - 9.0 %) 6.9 Eos % (Auto) (0.3 - 3.7 %) 0.1 L Baso % (Auto) (0.0 - 2.0 %) 0.1 Neut # (Auto) (2.0 - 7.6 x10 3/uL) 7.91 H Lymph # (Auto) (1.0 - 3.8 x10 3/uL) 1.85 [place] # (Auto) (0.1 - 0.8 x10 3/uL) 0.73 Eos # (Auto) (0.0 - 0.2 x10 3/uL) 0.01 Baso # (Auto) (0.0 - 0.2 x10 3/uL) 0.01 Abs Immat Gran (auto) (0.00 - 0.03 x10 3/uL) 0.10 H Add Manual Diff NO Immature Gran % (0.0 - 2.0 %) 0.9 Nucleated RBC % (0 - 0 %) 0.0 Nucleated RBCs # (Man) (0.0 - 0.1 x10 3/uL) 0.00 Laboratory Tests: 09/17 09/17 09/17 09/17 09/17 [...] (Auto) (14.0 - 32.0 %) 10.2 L [place] % (Auto) (4.8 - 9.0 %) 2.9 L Eos % (Auto) (0.3 - 3.7 %) 0.0 L Baso % (Auto) (0.0 - 2.0 %) 0.1 Neut # (Auto) (2.0 - 7.6 x10 3/uL) 7.58 Lymph # (Auto) (1.0 - 3.8 x10 3/uL) 0.91 L [place] # (Auto) (0.1 - 0.8 x10 3/uL) 0.26 Eos # (Auto) (0.0 - 0.2 x10 3/uL) 0.00 Baso # (Auto) (0.0 - 0.2 x10 3/uL) 0.01 Abs Immat Gran (auto) (0.00 - 0.03 x10 3/uL) 0.14 H Add Manual Diff NO Immature Gran % (0.0 - 2.0 %) 1.6 Nucleated RBC % (0 - 0 %) 0.0 Nucleated RBCs # (Man) (0.0 - 0.1 x10 3/uL) 0.00 Laboratory Tests: 09/16 09/16 09/16 09/16 1549 1441 1110 0553 Chemistry POC Glucose (70 - 110 MG/DL) 62 L 60 L 148 H 195 H 09/16 09/15 0455 1937 Chemistry Sodium [...] % (Auto) (14.0 - 32.0 %) 18.6 [place] % (Auto) (4.8 - 9.0 %) 6.7 Eos % (Auto) (0.3 - 3.7 %) 0.2 L Baso % (Auto) (0.0 - 2.0 %) 0.1 Neut # (Auto) (2.0 - 7.6 x10 3/uL) 6.99 Lymph # (Auto) (1.0 - 3.8 x10 3/uL) 1.77 [place] # (Auto) (0.1 - 0.8 x10 3/uL) 0.64 Eos # (Auto) (0.0 - 0.2 x10 3/uL) 0.02 Baso # (Auto) (0.0 - 0.2 x10 3/uL) 0.01 Abs Immat Gran (auto) (0.00 - 0.03 x10 3/uL) 0.10 H Add Manual Diff NO Immature Gran % (0.0 - 2.0 %) 1.0 Nucleated RBC % (0 - 0 %) 0.0 Nucleated RBCs # (Man) (0.0 - 0.1 x10 3/uL) 0.00 Laboratory Tests: 09/15 09/15 09/15 09/15 1640 1304 1154 0519 Chemistry POC Glucose (70 - 110 MG/DL) 137 H 126 H 309 H Urines Urine Color (YEL/STRAW) YELLOW Urine Appearance (CLEAR) SL CLOUDY Urine pH (5.0 - 7.0) 5.0 Ur Specific [place] (1.005 - 1.030) 1.013 Urine Protein (NEGATIVE) [...] (Auto) (14.0 - 32.0 %) 11.3 L [place] % (Auto) (4.8 - 9.0 %) 3.2 L Eos % (Auto) (0.3 - 3.7 %) 0.0 L Baso % (Auto) (0.0 - 2.0 %) 0.1 Neut # (Auto) (2.0 - 7.6 x10 3/uL) 7.35 Lymph # (Auto) (1.0 - 3.8 x10 3/uL) 0.98 L [place] # (Auto) (0.1 - 0.8 x10 3/uL) 0.28 Eos # (Auto) (0.0 - 0.2 x10 3/uL) 0.00 Baso # (Auto) (0.0 - 0.2 x10 3/uL) 0.01 Abs Immat Gran (auto) (0.00 - 0.03 x10 3/uL) 0.04 H Add Manual Diff NO Immature Gran % (0.0 - 2.0 %) 0.5 Nucleated RBC % (0 - 0 %) 0.0 Nucleated RBCs # (Man) (0.0 - 0.1 x10 3/uL) 0.00 Microbiology: Date/Time Procedure - Status Source Growth 09/15 514 MRSA DNA Surveillance Screen - COMP NASAL Laboratory Tests: 09/14 09/14 09/14 09/14 09/13 1130 0741 0522 0537 1935Chemistry Sodium (134 - 147 mEq/L) 132 L [...] H Calcium (8.0 - 10.5 mg/dL) 7.5 LHematology WBC (4.5 - 11.0 x10 3/uL) 9.5 [...] (Auto) (14.0 - 32.0 %) 13.9 L [place] % (Auto) (4.8 - 9.0 %) 5.1 Eos % (Auto) (0.3 - 3.7 %) 0.0 L Baso % (Auto) (0.0 - 2.0 %) 0.1 Neut # (Auto) (2.0 - 7.6 x10 3/uL) 7.58 Lymph # (Auto) (1.0 - 3.8 x10 3/uL) 1.31 [place] # (Auto) (0.1 - 0.8 x10 3/uL) 0.48 Eos # (Auto) (0.0 - 0.2 x10 3/uL) 0.00 Baso # (Auto) (0.0 - 0.2 x10 3/uL) 0.01 Abs Immat Gran (auto) (0.00 - 0.03 0.07 Hx10 3/uL) Add Manual Diff NO Immature Gran % (0.0 - 2.0 %) 0.7 Nucleated RBC % (0 - 0 %) 0.0 Nucleated RBCs # (Man) (0.0 - 0.1 0.00x10 3/uL) 09/13 1629 Chemistry POC Glucose (70 [...] (Auto) (14.0 - 32.0 %) 10.4 L [place] % (Auto) (4.8 - 9.0 %) 3.5 L Eos % (Auto) (0.3 - 3.7 %) 0.0 L Baso % (Auto) (0.0 - 2.0 %) 0.1 Neut # (Auto) (2.0 - 7.6 x10 3/uL) 8.34 H Lymph # (Auto) (1.0 - 3.8 x10 3/uL) 1.02 [place] # (Auto) (0.1 - 0.8 x10 3/uL) 0.34 Eos # (Auto) (0.0 - 0.2 x10 3/uL) 0.00 Baso # (Auto) (0.0 - 0.2 x10 3/uL) 0.01 Abs Immat Gran (auto) (0.00 - 0.03 x10 3/uL) 0.07 H Add Manual Diff NO Immature Gran % (0.0 - 2.0 %) 0.7 Nucleated RBC % (0 - 0 %) 0.0 Nucleated RBCs # (Man) (0.0 - 0.1 x10 3/uL) 0.00 Microbiology: Date/Time Procedure - Status Source Growth [...] % (Auto) (14.0 - 32.0 %) 15.0 [place] % (Auto) (4.8 - 9.0 %) 7.9 Eos % (Auto) (0.3 - 3.7 %) 3.8 H Baso % (Auto) (0.0 - 2.0 %) 0.3 Neut # (Auto) (2.0 - 7.6 x10 3/uL) 6.34 Lymph # (Auto) (1.0 - 3.8 x10 3/uL) 1.31 [place] # (Auto) (0.1 - 0.8 x10 3/uL) 0.69 Eos # (Auto) (0.0 - 0.2 x10 3/uL) 0.33 H Baso # (Auto) (0.0 - 0.2 x10 3/uL) 0.03 Abs Immat Gran (auto) (0.00 - 0.03 x10 3/uL) 0.06 H Add Manual Diff NO Immature Gran % (0.0 - 2.0 %) 0.7 Nucleated RBC % (0 - 0 %) 0.0 Nucleated RBCs # (Man) (0.0 - 0.1 x10 3/uL) 0.00 Toxicology Random Vancomycin (mcg/mL) 16.7 Laboratory Tests: 09/11 09/11 09/11 09/11 09/11 1532 1445 1114 0541 0445Chemistry Sodium (134 - 147 mEq/L) 134 Potassium [...] MG/DL) 4.7 Magnesium (1.80 - 2.40 mg/dL) 1.90Hematology WBC (4.5 - 11.0 x10 3/uL) 7.9 [...] % (Auto) (14.0 - 32.0 %) 16.1 [place] % (Auto) (4.8 - 9.0 %) 9.1 H Eos % (Auto) (0.3 - 3.7 %) 5.6 H Baso % (Auto) (0.0 - 2.0 %) 0.5 Neut # (Auto) (2.0 - 7.6 x10 3/uL) 5.35 Lymph # (Auto) (1.0 - 3.8 x10 3/uL) 1.27 [place] # (Auto) (0.1 - 0.8 x10 3/uL) 0.72 Eos # (Auto) (0.0 - 0.2 x10 3/uL) 0.44 H Baso # (Auto) (0.0 - 0.2 x10 3/uL) 0.04 Abs Immat Gran (auto) (0.00 - 0.03 0.06 Hx10 3/uL) Add Manual Diff NO Immature Gran % (0.0 - 2.0 %) 0.8 Nucleated RBC % (0 - 0 %) 0.0 Nucleated RBCs # (Man) (0.0 - 0.1 0.00x10 3/uL)Toxicology Random Vancomycin (mcg/mL) 18.3 09/10 1851 Chemistry POC Glucose (70 - 110 MG/DL) 97 Laboratory Tests: 09/10 09/10 09/10 09/10 09/10 1715 1625 1430 1007 0545Chemistry Sodium (134 - 147 mEq/L) 135 Potassium [...] MG/DL) 4.6 Magnesium (1.80 - 2.40 mg/dL) 1.89Hematology WBC (4.5 - 11.0 x10 3/uL) 8.6 [...] % (Auto) (14.0 - 32.0 %) 15.5 [place] % (Auto) (4.8 - 9.0 %) 8.5 Eos % (Auto) (0.3 - 3.7 %) 5.5 H Baso % (Auto) (0.0 - 2.0 %) 0.4 Neut # (Auto) (2.0 - 7.6 x10 3/uL) 5.94 Lymph # (Auto) (1.0 - 3.8 x10 3/uL) 1.33 [place] # (Auto) (0.1 - 0.8 x10 3/uL) 0.73 Eos # (Auto) (0.0 - 0.2 x10 3/uL) 0.47 H Baso # (Auto) (0.0 - 0.2 x10 3/uL) 0.03 Abs Immat Gran (auto) (0.00 - 0.03 0.06 Hx10 3/uL) Add Manual Diff NO Immature Gran % (0.0 - 2.0 %) 0.7 Nucleated RBC % (0 - 0 %) 0.0 Nucleated RBCs # (Man) (0.0 - 0.1 0.00x10 3/uL)Toxicology Random Vancomycin (mcg/mL) 15.7 09/10 09/09 0541 1911 Chemistry POC Glucose (70 - 110 MG/DL) 154 H 102 Recent Impressions:ULTRASOUND - US RETROPERITONEAL COM 09/10 1311 Report Impression - Status: SIGNED Entered: 09/10/2022 1503 IMPRESSION: No acute findings. Impression By: Yared Mares M.D. Laboratory Tests: 09/09 09/09 09/09 09/09 09/09 [...] % (Auto) (14.0 - 32.0 %) 16.1 [place] % (Auto) (4.8 - 9.0 %) 9.2 H Eos % (Auto) (0.3 - 3.7 %) 4.7 H Baso % (Auto) (0.0 - 2.0 %) 0.4 Neut # (Auto) (2.0 - 7.6 x10 3/uL) 6.38 Lymph # (Auto) (1.0 - 3.8 x10 3/uL) 1.49 [place] # (Auto) (0.1 - 0.8 x10 3/uL) 0.85 H Eos # (Auto) (0.0 - 0.2 x10 3/uL) 0.43 H Baso # (Auto) (0.0 - 0.2 x10 3/uL) 0.04 Abs Immat Gran (auto) (0.00 - 0.03 x10 3/uL) 0.05 H Add Manual Diff NO Immature Gran % (0.0 - 2.0 %) 0.5 Nucleated RBC % (0 - 0 %) 0.0 Nucleated RBCs # (Man) (0.0 - 0.1 x10 3/uL) 0.00 Retic Count (auto) (0.3 - 2.3 [...] (Auto) (14.0 - 32.0 %) 13.7 L [place] % (Auto) (4.8 - 9.0 %) 7.2 Eos % (Auto) (0.3 - 3.7 %) 4.8 H Baso % (Auto) (0.0 - 2.0 %) 0.3 Neut # (Auto) (2.0 - 7.6 x10 3/uL) 6.64 Lymph # (Auto) (1.0 - 3.8 x10 3/uL) 1.24 [place] # (Auto) (0.1 - 0.8 x10 3/uL) 0.65 Eos # (Auto) (0.0 - 0.2 x10 3/uL) 0.43 H Baso # (Auto) (0.0 - 0.2 x10 3/uL) 0.03 Abs Immat Gran (auto) (0.00 - 0.03 x10 3/uL) 0.06 H Add Manual Diff NO Immature Gran % (0.0 - 2.0 %) 0.7 Nucleated RBC % (0 - 0 %) 0.0 Nucleated RBCs # (Man) (0.0 - 0.1 x10 3/uL) 0.00 Laboratory Tests: 09/07 09/07 09/07 09/07 09/07 1554 1137 1127 0618 0510 Chemistry Creatinine (0.6 - 1.3 mg/dL) 1.4 H POC Glucose (70 - 110 MG/DL) 112 H 51 L 42 L 135 H Hematology Hgb (12.5 - 16.9 [...] 1739 Occult Blood - COMP STOOL Recent Impressions:RADIOLOGY - XR ABDOMEN 1V (KUB) 09/04 1648 Report Impression - Status: SIGNED Entered: 09/04/2022 1757 IMPRESSION: Benign appearance of the abdomen.Impression By: [email or web address] - Roger Parra M.D.ULTRASOUND - [facility] VE[facility] UNI/LTD 09/05 1146 Report Impression - Status: SIGNED Entered: 09/05/2022 1333 IMPRESSION: 1. No evidence of deep vein thrombosis. 2. Complex heterogeneous hypoechoic fluid collection in the left calf region measuring 8.4 x 2.8 x 2.5 cm; there is no internal vascularity or peripheral hyperemia. May represent a hematoma.Impression By: [email or web address] - Mert Ga M.D.RADIOLOGY - XR CHEST 1 V 09/05 1432 Report Impression - Status: SIGNED Entered: 09/05/2022 1515 IMPRESSION: Minimal bibasilar pulmonary opacitiesImpression By: TipTDO Cr Mares M.D. Laboratory Tests: 09/04 09/04 09/04 09/04 09/04 [...] COLB STOOL 1.Diabetes mellitus type 2 uncontrolled complications.2. Status post right BKA3. Status post gangrene of the right foot.4. Sepsis5. Prostate abscess.6. Anemia7. Chronic renal failure.Blood sugar 217-231 mg/dL.H/H 8.6/.Adjust insulin dose.PT and OT. at 1452 RPT #:[id number] OF REPORTPRProgress enkg2798-49-81Q11:49:00G.[id number] able for patient ufjtOMXKITUBOAIPLO4083-94-85W85:52:39 [facility] 2022-09-23 14:48:00 [id number] fgnkoGsdGDWTgXkugQ7xcCu7ATV6b TzHIKQlHJ0oiHEduOe2X3YLjl+64660-95-90Q31:48:00 [facility] ([facility])Rehab Team ConferenceREPORT#:[id number] REPORT STATUS: SignedDATE:09/23/22 TIME: 1448 PATIENT: KARMA ROWLAND UNIT #: [id number]#: [id number] [address] [birth year] AGE: 56 SEX: M ATTEND: Mj Vences AUTHOR: Mj Vences MD * ALL edits or amendments must be made on the electronic/computer document * Rehabilitation Team Conference Weekly Team ConferenceTeam conf information:Date of conference: 09/23/22Conference type: InterimConference scribe: Columba Drew PTA INTERDISCIPLINARY TEAM MEETING PARTICIPANTS: TITLE NAME MD SELENA Butts, SELENA PT Anthony Ro, PT OT Williams Mckeon OT CM/TERESA Sinclair CM ST [facility] Amanda Lai, HAND RIGGER Staff (8) NO ATTENDEE Staff (9) NO ATTENDEE OTHER NAME CREDENTIALS 1 YOU PAMLER DIETITIAN 2 FUNCTIONAL CHANGE: TYPE ADMISSION TOTAL INTERIM TOTAL CHANGE Self care 20 34 14 Transfer 17 29 12 Mobility 8 8 0 Wheelchair distance: 200 FEET 400 FEET Mobility description: BOWEL AND BLADDER STATUS: Bowel continence admission rating: Bladder continence admission rating: Not applicableBowel and bladder team conference update: CONTINENT OF BOWEL LBM 5/. CAMARENA CATHETER DRAINING WELL W/O KINKS INTERDISCIPLINARY TEAM UPDATES: LYDIA team conference update: PT IS AOX4 SPEECH CLEAR. EXPRESSES WANTS AND NEEDS. ROOM AIR. CONTINENT OF BOWEL LBM 5/1. CAMARENA CATHETER DRAINING WELL W/O KINKS. STAND BY ASSIST WITH WC. ACHC, BG IS WNL. BEDTIME LANTUS GIVEN WITH SNACKS. DRESSING CLEAN, DRY AND INTACT TO AMPUTATION TO RIGHT KNEE, ROB INTACT. ABRASION POSTERIIOR TO LEFT HEEL, ZINC APPLIED AND OFFLOADING. SWALLOWS PILLS WHOLE. THIN LIQUIDS. PT USES CURRENT PAIN MEDS TO MANAGE PAIN. BED ALARM AND CALL LIGHT IN REACH. KNEE. PT team conference update: PT CONTINUES TO REQUIRE CGA TO MIN A FOR TXFRS AND REP/DEM INCR LT LE EDEMA-P.T. EDUC PT'S SPOUSE IN WRAPPING LT LE /PRACTICE AT NEXT TX. PT'S SPOUSE VERB INDEP W/STUMP DRSNG CHANGE AND WRAPPING. PT CONT TO BE UNSAFE W/STAND PVT TXFRS D/T LT LE KNEE INSTABILITY-REC SQUAT PVT OR SB FOR HOME TXFRS W/SPOUSE. REC HH P.T.,18"WC W/ELEV LEG RESTS,RW AND SB/GAIT BELT FOR DCOT team conference update: Pt progressing toward goals, show's improvements w adls and xfers Adls: Mod I to Mod assist, Xfers: Supervision Recc: HHOT, DME: drop arm bsc, sliding boardST team conference update: CM or SW team conference update: PATIENT IS FROM HOME WITH A SUPPORTIVE SPOUSE. PLAN TO DC TO HOME WITH NEEDED DME AND HOME HEALTH. PROVIDED FAMILY WITH INFORMATION ON SOCIAL SECURITY DISABILITY.Other discipline update 1: P.O INTAKE: >75% OF RENAL DIET.Other discipline update 2: Other discipline update 3: REHAB DC GOALS: Patient's identified discharge goal: "I WOULD LIKE TO GO HOME WITH MY FAMILY" PT: PATIENT WILL LIKE TO GET STRONGER TO DC HOME AND GO BACK TO WORK ONCE HE RECEIVED HIS PROSTHETIC OT: "get stronger" Eating discharge goal: Independent (6) Shower/bathe self discharge goal: Independent (6) Upper body dressing discharge goal: Independent (6) Lower body dressing discharge goal: Independent (6) Chair/bed to chair transfer discharge goal: Setup/clean-up only (5) Transfer on/off toilet or commode discharge goal: Supervise/touch asst (4) Walking 50 feet with two turns discharge goal: Med cond/safety concern Walking 150 feet discharge goal: Med cond/safety concern Four steps discharge goal: Med cond/safety concern Twelve steps discharge goal: Med cond/safety concern [place] 150 feet discharge goal: Independent (6) Goal 1 - Bowel function: PATIENT WILL REMAIN CONTINENT OF BOWELGoal 2 - Bladder function: PATIENT WILL REGAIN BLADDER CONTROLNursing goal 3: PATIENT WILL BE FREE FROM FALLS DURING STAYNursing goal 4: PATIENT WILL MAINTAIN SKIN INTEGRITYNursing goal 5: DISCHARGE PLANNING: Barriers to discharge: Fall risk, Endurance, Pain, Caregiver, NWB RLE, DIFFICULTY WITH TRANSFERSStrategies for D/C barriers: Fall recovery training, Evaluate pain control, Scheduled rest breaks, LE EX, WC MOB, TRANSFER TRAINING, CAREGIVER TRAINING Estimated length of stay in days: 17Anticipated discharge date: 09/24/22Discharge date adjustment comment: PENDING MEDICAL CLEARANCEIdentified financial and/or community resource needs: Family/Caregiver training days: PATIENT AND FAMILY WILL BE EDUCATED ON USE OF GAIT BELT TO LOWER PT TO THE FLOOR IN THE EVENT OF LOSS OF BALANCE TO PREVENT FALL OR INJURY. FAMILIY TRAINING SCHEDULED FOR 09/23/22Independence day (DATE): 09/23/22Expected discharge destination: HomeAnticipated services upon discharge: Physical therapy, Nursing, Occupational therapy, Home healthAnticipated discharge equipment: Drop arm bedside commode, sliding board, 18" WCW/ELEV LEG RESTS, RW Impairment group: amputation of limb NOTE Document ONLY ONE Impairment Group Amputation of limb: unilateral lower limb (R BKA)Etiologic diagnosis:Gas gangrene of right foot and ankle S/P R BKAReview of comorbidities:Postoperative anemia, ERIKA, DM, HTN, diabetic neuropathy, HLD Review/RecommendationsAttestation:This interdisciplinary team conference was led by me and I concur with all decisions made during the team conference and revisions to the individualized overall plan of care. IRF cont stay criteriaSee my note at 1449 RPT #:[id number] OF REPORTCLClinical [id number]:48:00G.[id number] able for patient buyqRYNPAWBJHPFCVC6531-31-64P40:49:37 [facility] 2022-09-23 14:25:00 [id number] qCmFpduVCY+TV46KMKNOEg4hQZ1C2 hTGKgi6oCq9hBjoLWolZza1Ycc33101-61-57G14:25:00 [facility] ([facility])Infectious Dis. Progress NoteREPORT#:[id number] REPORT STATUS: SignedDATE:09/23/22 TIME: 1425 PATIENT: KARMA ROWLAND UNIT #: [id number]#: [id number] ROOM/BED: 537-1DOB: [birth year] AGE: 56 SEX: M ATTEND: Mj Vences [facility] AUTHOR: Anthony Curtis MD * ALL edits or amendments must be made on the electronic/computer document * SubjectiveChief complaint:Follow-up on MRSA bacteremia, prostatic abscess.HPI:Patient reports feeling better subjectively. Denies acute or new complaints. No major overnight events. Objective GeneralVS/I O:Vital Signs Date Temp Pulse Resp B/P B/P Mean Pulse Ox FiO2 05/-09/23 97.3-99.0 84-90 16-18 122-149/64-74 83.1-98.0 96-100 Last Documented: Result Date Time Pulse Ox 98 / 0725 B/P 149/69 05/ 0725 B/P Mean 95.3 / 0725 Temp 97.3 / 0725 Pulse 88 / 0725 Resp 17 / 0725 O2 Delivery Room air 09/22 2310 O2 Flow Rate 2 09/08 1322 Vital Signs: Date Time Temp Pulse Resp B/P B/P Pulse O2 O2 Flow FiO2 Mean Ox Delivery Rate / 0725 97.3 88 17 149/69 95.3 98 05/01 2310 97.9 84 16 146/74 98.0 100 [...] 0 Urine/Stool Mix PATIENT WEIGHT: Weight (lb): 167Weight (oz): 12.35Weight (kg): 76.100 Physical ExamGeneral appearance: alert, awake, no acute distressCardiovascular: normal heart sounds, regular rate rhythmRespiratory: clear to auscultation, aerating wellAbdomen: non-tender, soft, no distentionExtremities: edema (in left leg and thigh improved), moves all, right BKA Left foot wound +dressing in placeNeuro/DIRECTOR OPERATING ROOM: alert, oriented X 3 Considered stroke alert: noSkin: dry, intact, no rashPsychiatry: normal affect, normal mood Diagnosis, Assessment PlanFree Text A P: Assessment: Patient is a 56-year-old male with history of diabetes mellitus type 2, hypertension who was admitted with altered mental status and right-sided foot infection. According to him, he noticed a blister on his right foot around 3 days prior to presentation. His foot got progressively more swollen and erythema extended proximally to his lateral foot and ankle. CT abdomen and pelvis with contrast is concerning for possible prostate abscess. CT of lower extremity without contrast shows extensive soft tissue edema with mottled gas inthe subcutaneous and intramuscular compartments of the foot, compatible with gas-forming infection. Patient's blood cultures have come back positive for MRSA in 2 out of 2 sets. Patient has had persistent positive cultures for MRSA. He underwent a debridement of his foot on 08/19/2022 and cultures grew MRSA. Patient was started on vancomycin and clindamycin on 08/18/2022. His MRI showeda prostate abscess. 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 Pt underwent a transrectal aspiration and unroofing of prostate abscess 08/26/2022 and culturesgrew Citrobacter, Enterococcus, MRSA. 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 JIMENA done 09/02/2022, which was negative for vegetations. Patient was transferred to Rehab on 09/02/2022. *MRSA bacteremia, refractory, now cleared*Prostatic abscess, s/p unroofing 08/26/2022*ERIKA*Hyponatremia*Diabetic neuropathy*Diabetes mellitus type 2*Hypertension*Anemia -Afebrile; although with an isolated low-grade temperature spike of 37.2 C.-Leukocytosis of 11.8 on today's CBC noted; overall, downtrending.-No recent cultures. Last blood cultures from 08/28/22 negative x2. Plan: -On daptomycin and meropenem.-Finishing treatment 09/24/2022 (stop after tomorrow's dosages).-Would finish treatment as planned and then monitor off antimicrobials.-Continue supportive care. at [address] [facility] #:[id number] OF REPORTPRProgress [id number]:25:00G.[id number] able for patient [id number]:26:43 [facility] 2022-09-23 13:51:00 [id number] I+fxJhtyR20+lGOzqC4oSyTZCDGEH Xr+qktbq3cmEg6Bj01smgc/[id number]:51:00 [facility] ([facility])Cardiology Progress NoteREPORT#:[id number] REPORT STATUS: SignedDATE:09/23/22 TIME: 135 PATIENT: KARMA ROWLAND UNIT #: [id number]#: [id number] [address] AGE: 56 SEX: M ATTEND: Mj Vences [facility] AUTHOR: Rohit Benitez RESEARCH MANUFACTURING OPERATOR * ALL edits or amendments must be made on the electronic/computer document * Rohit Benitez 09/23/22 1351:SubjectiveChief complaint:weakness Free Text Subj NotesFree Text Subj Notes:Patient seen and evaluated in the gym. Working with physical therapy, no new cardiac complaint. Objective GeneralVS/I O:24 hour I O ending at 0700: 09/23 [...] 96 Room air PATIENT WEIGHT: Weight (lb): 167Weight (oz): 12.35Weight (kg): 76.100 Medications:Active Meds + DC'd Last 24 HrsSodium Bicarbonate (SODIUM BICARBONATE) 650 MG BID PO [...] Furosemide (LASIX 20MG INJ) 20 MG BLOOD-DOSE BETWEEN IV (CKD) Sodium Chloride (SODIUM CHLORIDE) 10 ML ASDIR IV Pantoprazole Sodium (PROTONIX) 40 MG Q12HR IV Polyethylene Glycol (MIRALAX) 17 GM DAILY PO Sennosides (Senna Lax 8.6 MG TABLET) 8.6 MG DAILY PO Sodium Chloride (SODIUM CHLORIDE) 10 ML ASDIR PRN IV Amitriptyline HCl (ELAVIL) 25 MG BEDTIME PO Zinc Oxide (ZINC OXIDE 30 GM OINTMENT) 1 APPLIC DAILY TOPICAL Sterile Water (WATER FOR IRRIGATION) DRESSING CHANGE ASDIR PRN IRR Insulin Human Lispro (HUMALOG) 0 AC HS SUBQ Dextrose/Water (DEXTROSE 10% IN WATER) 125 ML ASDIR PRN IV (CKD) Dextrose/Water (DEXTROSE 10% IN WATER) 250 ML ASDIR PRN IV (CKD) Glucagon (GLUCAGON) 1 MG ASDIR PRN IM Lidocaine (LIDODERM) 1 PATCH DAILY TOPICAL Acetaminophen (TYLENOL) 650 MG Q6H PRN PRN PO Bisacodyl (DULCOLAX) 10 MG DAILY PRN PRN RECTAL Docusate Sodium (COLACE) 100 MG Q12H PRN PRN PO Hydralazine HCl (APRESOLINE) 10 MG Q6H PRN PRN IV Ondansetron HCl (ZOFRAN) 4 MG Q6H PRN PRN IV Physical ExamGeneral appearance: alert, awake, orientedNeck: no bruit/NL carotids, no JVDCardiovascular: CV assessment: regular rate and rhythm, no ectopy, no gallopRespiratory: clear to auscultation, no distressAbdomen: soft, non-tenderGenitourinary: urinary catheterLower extremity: LE assessment: edema, normal temperatureNeuro/DIRECTOR OPERATING ROOM: alert, oriented X 3 Considered stroke alert: noWound/incision: Location:right bkaPsychiatry: normal affect, normal judgment/insight, normal mood ResultsFindings/Data:Laboratory Tests 09/23 09/23 09/23 09/23 09/22 1050 [...] (Auto) (14.0 - 32.0 %) 9.6 L [place] % (Auto) (4.8 - 9.0 %) 4.5 L Eos % (Auto) (0.3 - 3.7 %) 0.1 L Baso % (Auto) (0.0 - 2.0 %) 0.1 Neut # (Auto) (2.0 - 7.6 x10 3/uL) 10.02 H Lymph # (Auto) (1.0 - 3.8 x10 3/uL) 1.13 Lenoir # (Auto) (0.1 - 0.8 x10 3/uL) 0.53 Eos # (Auto) (0.0 - 0.2 x10 3/uL) 0.01 Baso # (Auto) (0.0 - 0.2 x10 3/uL) 0.01 Abs Immat Gran (auto) (0.00 - 0.03 x10 3/uL) 0.11 H Add Manual Diff NO Immature Gran % (0.0 - 2.0 %) 0.9 Nucleated RBC % (0 - 0 %) 0.0 Nucleated RBCs # (Man) (0.0 - 0.1 x10 3/uL) 0.00 Laboratory Tests 09/23 0501 Chemistry Magnesium (1.80 - 2.40 mg/dL) 2.22 Diagnosis, Assessment PlanConsultants: cardiology, endocrinology, hospitalist, infectious disease, podiatry Free Text DxA P NotesFree Text DxA P Notes:Impression: 1. Debility2. Infected right foot status post BKA3. Bacteremia4. Diabetes5. Hypertension 6. Anemia7. Acute Diastolic CHF8. ERIKA 07/2022: Echocardiogram with normal LVEF, grade 1 diastolic dysfunction, mildly dilated LA, and no significant valvular abnormalities Recommendation: Patient initially presented with DKA and sepsis. Diagnosed with right foot infection, underwent I D, now status post BKA. Patient had persistent bacteremia with MRSA, underwent JIMENA with negative findings of endocarditis. Patient now transferred to rehab for physical therapy. Known cardiac history ofhypertension and hyperlipidemia. Vital signs stable. Echocardiogram with normal LVEF, grade 1 diastolic dysfunction, mildly dilated LA, and no significant valvular abnormalities. Continue to monitor blood pressure trend. Continue wound care and IV antibiotic therapy. Continue PT/OT. Supportive care. 09/04: Patient complaining of shortness of breath, abdominal distention and lowerextremity edema. Renal function and electrolytes stable. Will give one-time dose of IV Lasix 40 mg. Blood pressure stable. Pending abdominal x-ray. Monitor intake and output. Check BMP in the morning. Supportive care. Plan ofcare discussed with patient, RN and Dr. Parham. 09/05: Patient responded well to IV Lasix, good urine output and improvement in shortness of breath. Chest x-ray ordered. Currently on Lasix 20 mg p.o. daily. Continue monitor renal function and electrolytes. Pending lower extremity Doppler for lower extremity edema. Continue PT/OT. Supportive care. Plan of care discussed with patient, RN and Dr. Parham. 09/08: Blood pressure has been elevated, started on Coreg 3.125 mg twice daily. Continue monitor blood pressure trend and adjust medication as needed. Still having left lower extremity edema, venous Doppler negative for DVT. continue gentle diuresis with Lasix 20 mg p.o. daily. Recommend Joan wrap. Patient remains anemic, plan for EGD/colonoscopy today. Supportive care. Plan of care discussed with patient, family, RN and Dr. Parham. 09/09: Patient doing well status post EGD/colonoscopy, negative findings for GI bleed. Blood pressure improving, increased on Coreg to 12.5 mg twice daily. Elevated creatinine noted, nephrology following. No new cardiac complaint. Continue wound care. Continue PT/OT. Supportive care. Plan of care discussed with patient, RN and Dr. Parham. 09/10: Blood pressure remained stable on current regimen of Coreg. Patient continue to have left lower extremity edema. Currently on Lasix 20 mg daily. Creatinine 1.9 today, continue to monitor. Patient's albumin level was 1.3, it is possible that patient's lower extremity edema could be related to hypoalbuminemia leading to third spacing. Continue PT/OT. Supportive care. Plan of care discussed with patient, RN and Dr. Parham. 09/11: Patient doing well from cardiac standpoint. Blood pressure well controlled. Improvement in lower extremity edema with elevating leg while in bed. Creatinine 2.0 today. Denies shortness of breath. Will hold diuretic for now and monitor renal function. Supportive care. Plan of care discussed with patient, RN and Dr. Parham. 09/12: Creatinine remains elevated at 2.4 today, antibiotic regimen also being adjusted. Patient still with lower extremity edema and rales on physical examination. Will check chest x-ray and limited echocardiogram for further evaluation. Check BNP. Continue hold diuretic for now. Supportive care. Planof care discussed with patient, RN and Dr. Parham. 09/15: Repeat echocardiogram showed LVEF of 55 to 60%, no regional wall motion abnormalities, left ventricular diastolic function parameters are indeterminate,mildly dilated LA, and no pericardial effusion. BNP elevated 297. Continue to hold diuretic due to Elevated creatinine, nephrology following and may consider renal biopsy. Continue to monitor fluid volume status. Overall improvement in lower extremity with Joan wrap. Continue physical therapy. Supportive care. Plan of care discussed with patient, RN and Dr. Parham. 09/16: Blood pressure slightly elevated, started on hydralazine 25 mg every 8 hours. Continue carvedilol monitor blood pressure trend. Cr. 2.7 today, continue monitor. Tolerating physical therapy. Euvolemic by physical examination. Supportive care. Plan of care discussed with patient, RN and Dr. Parham. 09/17: Blood pressure remains elevated, likely related to steroid therapy. Hydralazine increased to 50 mg 3 times daily. Nephrology managing diuretic therapy. Continue monitor renal function and electrolytes. Improvement in lower extremity swelling. Patient denies chest pain or shortness of breath. Tolerating PT/OT. Supportive care. Plan of care discussed with patient, RN andDr. Parham. 09/18: Blood pressure remains elevated due to steroid therapy. Continue monitor blood pressure trend, hydralazine increased to 75 mg 3 times daily. Responding to diuretic regimen with Lasix, good urine output. Creatinine improving, 2.2 today. Continue to monitor fluid volume status. Continue physical therapy. Supportive care. Plan of care discussed with patient, RN and Dr. Parham. 09/19: Blood pressure improving, continue hydralazine and carvedilol. Overall improvement in fluid volume status. No new cardiac complaint. Continue steroidtaper per nephrology. Progressing in therapy. Discharge planning. Supportive care. Plan of care discussed with patient, RN and Dr. Parham. 09/20: Patient doing much better since started on steroid therapy, creatinine is slowly improving, blood pressure overall improving, nephrology is adjusting antihypertensive medication regimen, diuretic regimen per nephrology, overall stable cardiac status, discussed with patient and . 09/21: Creatinine now below 2, at 1.9, blood pressure better controlled with carvedilol and hydralazine, fluid status is improving, continue diuretic regimenper nephrology, supportive care, will follow. 09/22: Patient remains from cardiac standpoint. Blood pressure elevated, startedon amlodipine 10 mg daily. Continue steroid therapy and diuretic per nephrology. Creatinine 1.8 today. Tolerating physical therapy. Discharge planning. Supportive care. Plan of care discussed with patient, RN and Dr. Parham. 09/23: Blood pressure improving on current regimen. Continue to monitor renal function, creatinine 2.1 today with elevated potassium, received Kayexalate. Tolerating physical therapy. Supportive care. Plan of care discussed with patient, RN and Dr. Parham. Napoleon Parham 09/27/22 1304:Diagnosis, Assessment PlanAdditional comments:Patient was seen and examined at bedside, agree with above assessment and plan as documented by nurse practitioner. Will follow. at 1648 at 1655 RPT #:[id number] OF REPORTPRProgress [id number]:51:00G.[id number] able for patient xfjqLKCEAFGNXLRUJZ5599-60-89N78:04:51 [facility] 2022-09-23 10:57:00 [id number]VH+ hfAw6Wm3hD8FTqiMxH5yV6R4Sp09916-48-73P33:57:00 [facility] Centerist Progress NoteREPORT#:[id number] REPORT STATUS: SignedDATE:09/23/22 TIME: 1057 PATIENT: KARMA ROWLAND UNIT #: [id number]#: [id number] [address] [birth year] AGE: 56 SEX: M ATTEND: Mj Vences MDADM AUTHOR: Wilbert Ramires MD * ALL edits or amendments must be made on the electronic/computer document * SubjectiveChief complaint:follow up s/p BKA. feels ok Review of SystemsAll systems rev neg: except as noted Objective GeneralVS/I O:Vital Signs: Date Time Temp Pulse Resp B/P [...] 0 Urine/Stool Mix PATIENT WEIGHT: Weight (lb): 167Weight (oz): 12.35Weight (kg): 76.100 Medications:Active Meds + DC'd Last 24 HrsSodium Bicarbonate (SODIUM BICARBONATE) 650 MG BID PO [...] (DC) Sterile Water (WATER FOR INJECTION) 10 MLCarvedilol (COREG) 25 MG C BK DIN PO Gabapentin (NEURONTIN) 100 MG Q8HR PO Oxycodone/Acetaminophen (PERCOCET 5/325MG TAB) 2 TAB Q4H PRN PRN PO Folic Acid (FOLIC ACID) 2 MG DAILY PO Multivitamins (TAB-A-MOHAN) 1 TAB DAILY PO Furosemide (LASIX 20MG INJ) 20 MG BLOOD-DOSE BETWEEN IV (CKD) Sodium Chloride (SODIUM CHLORIDE) 10 ML ASDIR IV Pantoprazole Sodium (PROTONIX) 40 MG Q12HR IV Polyethylene Glycol (MIRALAX) 17 GM DAILY PO Sennosides (Senna Lax 8.6 MG TABLET) 8.6 MG DAILY PO Sodium Chloride (SODIUM CHLORIDE) 10 ML ASDIR PRN IV Amitriptyline HCl (ELAVIL) 25 MG BEDTIME PO Zinc Oxide (ZINC OXIDE 30 GM OINTMENT) 1 APPLIC DAILY TOPICAL Sterile Water (WATER FOR IRRIGATION) DRESSING CHANGE ASDIR PRN IRR Insulin Human Lispro (HUMALOG) 0 AC HS SUBQ Dextrose/Water (DEXTROSE 10% IN WATER) 125 ML ASDIR PRN IV (CKD) Dextrose/Water (DEXTROSE 10% IN WATER) 250 ML ASDIR PRN IV (CKD) Glucagon (GLUCAGON) 1 MG ASDIR PRN IM Lidocaine (LIDODERM) 1 PATCH DAILY TOPICAL Acetaminophen (TYLENOL) 650 MG Q6H PRN PRN PO Bisacodyl (DULCOLAX) 10 MG DAILY PRN PRN RECTAL Docusate Sodium (COLACE) 100 MG Q12H PRN PRN PO Hydralazine HCl (APRESOLINE) 10 MG Q6H PRN PRN IV Ondansetron HCl (ZOFRAN) 4 MG Q6H PRN PRN IV Physical ExamGeneral appearance: alert, awake, orientedHead/Eyes: atraumatic, normocephalicENT: moist mucosal membranesNeck: no JVDCardiovascular: normal heart sounds, regular rate rhythmRespiratory: aerating well, clear to auscultationAbdomen: non-tender, normal bowel soundsGenitourinary: no bladder distentionExtremities: edema (1+ pitting edema to thigh), moves all, normal capillary refillMusculoskeletal: normal inspectionNeuro/DIRECTOR OPERATING ROOM: alert, oriented X 3, 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 Considered stroke alert: noSkin: dry, intactPsychiatry: normal affect, normal judgment/insight ResultsFindings/Data:Laboratory Tests 09/23 09/23 09/23 09/22 09/22 0516 [...] (Auto) (14.0 - 32.0 %) 9.6 L [place] % (Auto) (4.8 - 9.0 %) 4.5 L Eos % (Auto) (0.3 - 3.7 %) 0.1 L Baso % (Auto) (0.0 - 2.0 %) 0.1 Neut # (Auto) (2.0 - 7.6 x10 3/uL) 10.02 H Lymph # (Auto) (1.0 - 3.8 x10 3/uL) 1.13 [place] # (Auto) (0.1 - 0.8 x10 3/uL) 0.53 Eos # (Auto) (0.0 - 0.2 x10 3/uL) 0.01 Baso # (Auto) (0.0 - 0.2 x10 3/uL) 0.01 Abs Immat Gran (auto) (0.00 - 0.03 x10 3/uL) 0.11 H Add Manual Diff NO Immature Gran % (0.0 - 2.0 %) 0.9 Nucleated RBC % (0 - 0 %) 0.0 Nucleated RBCs # (Man) (0.0 - 0.1 x10 3/uL) 0.00 Diagnosis, Assessment PlanConsultants: cardiology, endocrinology, hospitalist, infectious disease, podiatry Free Text DxA P NotesFree text DxA P notes:Gangrene of right foot s/p Below- knee amputation Prostate abscessMRSA bacteremiaHx of Diabetes, Diabetic neuropathyHTNAKI PLANS: Continue with PT/OT per primary Wound care and Abx as per IDHepain PPXIV ironBS better but likely to increase with re-initiation of steroids x3 days started by Nephrology for AIN - Endo adjusting insulinpain controlEdema about the same, Lasix as per renalHgb stabilized. continue to monitorBP elevated. continue to adjust medscardio followingK+ slightly up - give kayexalatecreatinine up a little - continue to trend at 0806 RPT #:[id number] OF REPORTPRProgress [id number]:57:00G.[id number] able for patient byzrRENWMDYFTGEETE2115-23-76S64:07:18 [facility] 2022-09-23 10:13:00 [id number] q/azTVVs4a0hQ+Mc8tHbMdpiij71419-41-25P87:13:00 [facility])Gastroenterology Progress NoteREPORT#:[id number] REPORT STATUS: SignedDATE:09/23/22 TIME: 1013 PATIENT: KARMA ROWLAND UNIT #: [id number]#: [id number] [address] [birth year] AGE: 56 SEX: M ATTEND: Mj Vences MDADM AUTHOR: Kassie Avitia MD * ALL edits or amendments must be made on the electronic/computer document * SubjectiveHPI:Patient is a 56-year-old male with history of diabetes mellitus type 2 and hypertension who was initially admitted for altered mental status and right-sided foot infection. 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 The patient is anemic with current Hgb 7.1. He has received a total of 3 units pRBCs during this hospitalization. KUB on 09/04 was negative for acute GI process. The patient denies overt GIB, dark tarry stools, nausea, abdominal pain, or vomiting. He has never had EGD orcolonoscopy. 09/06: No complaints today. Hemoglobin stable. No overt GI bleed. Plan for colonoscopy and endoscopy on Thursday 09/07: No complaints today. No overt GI bleed. Planning for colonoscopy and endoscopy tomorrow 09/08: EGD mild gastritis. colonoscopy rectal polyp s/p snare. No other abnormalities 09/09: doing well. Seen at the gym. No bleeding. 09/10: Doing well. No bleeding. tolerating diet. Movig bowels 09/11: doing well. States his leg swelling is better. Tolerating diet. having normal BM 09/12: dooing well. doing work-out at the gym. Tolerating diet. Normal BMs. Stable H/H4-Sitting up in wheelchair, family at bedside. Denies n/v/abd pain/GIB 09/15: Doing well. H/H stable. No melena or BRBPR. No nausea or vomiting. Appetite is well 09/16: doing well. no complaints. eating well 09/17: stable H/H. No complaints. 09/18/22: H/H fluctuating but overall stable 09/19: H/H stable up to 8 today. No complaints. 09/20: Hemoglobin relatively stable. No complaint 09/21: no complaints. feeling well 09/22/2022: doing well. looking forward to be discharged 09/23/22: stable H/H no bleeding. Objective Physical ExamHEENT: atraumatic, normocephalicNeck: full range of motion, non-tenderRespiratory: symmetric expansion, no distressAbdomen: non-tender, normal bowel sounds, soft, no distention, no guardingExtremities: right BKA Considered stroke alert: noSkin: dry Diagnosis, Assessment PlanFree Text A P:1. Positive FOBT-and anemia: The patient denies overt GIB, dark tarry stools, nausea, abdominal pain, or vomiting. He is not on anticoagulation therapy.-Continue PPI. The patient has never had EGD or colonoscopy prior to this admissions/p EGD and colonoscopy. EGD showed mild gastritis. Colonoscopy showed rectal polyp that was resected by snare. no evidence of bleeding. Pathology of polyp came back as tubular adenoma. recommend repeating colonoscopy in 5 years Anemia likely secondary to chronic kidney disease and mild oozing from his stump.Can consider video capsule endoscopy as outpt if evidence of dropping H/HH/H remains stable Consider reducing frequency of H/H checktolerating diet and moving his bowelsWill follow along Consultants: cardiology, endocrinology, hospitalist, infectious disease, podiatry at 1014 RPT #:[id number] OF REPORTPRProgress [id number]:13:00G.[id number] able for patient gpqpAOSLTWKHOZUTWV6106-49-76K41:15:03 [facility] 2022-09-23 08:22:00 [id number] O/5twOUWTJSkDvpBvnE9gWVLG4SIa GQ80Uw0KJUf91Mp/YhN30le0EcX5722-12-41A81:22:00 [facility] ([facility]Re[facility] Progress NoteREPORT#:[id number] REPORT STATUS: SignedDATE:09/23/22 TIME: 821 PATIENT: KARMA ROWLAND UNIT #: [id number]#: [id number] [address]: [birth year] AGE: 56 SEX: M ATTEND: Mj Vences MDADM AUTHOR: Mj Vences MD * ALL edits or amendments must be made on the electronic/computer document * SubjectiveChief complaint:Rehab follow-upPatient doing well, making good progressBKA without bleedingEdema improvingEating 75-100% at bedside+ BMDenies DICKENS/N/V/D/CP14 systems reviewed and neg. except that above.History of present illness:56 yo HAM with long h/o DM, and HTN who was admitted for fever, flulike symptomsand altered mental status on 08/18. He was doing well until about 3 days prior toadmission when he noted blister to have formed on the dorsum of his foot. His foot started progressively getting more swollen and the blisters started enlarging and extending to his lateral foot and ankle. He started feeling weak and nauseated. He was noted to have altered mentation and was brought to our ER.He was noted to be in DKA with Blood sugars greater than 600. He was seen by podiatry and surgery for BLE wounds and infection. He was treated in ICU for sepsis and DKA. He underwent incisional and excisional debridement of right footand right ankle by podiatry. Patient also found to have prostate abscess underwent transrectal ultrasound aspiration of abscess and transurethral resection of prostate and unroofing of abscess by urology Dr. Du. Endocrinology treated the DKA and blood sugars much improved. Patient's right foot was not salvageable and patient underwent right BKA by Dr. LEROY on 08/28. Patient blood cultures showed MRSA. Patient continued on antibiotics as per ID. MRI of the pelvis and foot completed. Patient required multiple PRBCs for anemia. Patient was found to have a possible small hematoma of the left calf onultrasound. He complains of pain and swelling of the left ankle. Patient hemodynamically stable and plans are to be transferred to stepdown unit. He is on heparin subcu for VTE. After surgery he is now being mobilized by PT and OT.He is wearing a maxine-tech orthotic for right knee/BKA protection. Prior to admission the patient was independent living in a single-story house with his spouse with a few steps up to front and back door. 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 is at bedside. Patient denies nausea, vomiting, fever, chills, chest pain, shortness of breath with dizziness. He is requiring IV Dilaudid for pain control. Mental status back to baseline. Pt is progressing slowly with therapy d/t weakness and pain, self care deficit, decreased endurance and balance, and decreased functional mobility. Pt requiring acute inpt rehab for multidisciplinary team of nursing, therapy, and physicians. Pt iswilling and able to partici- kathleen in 3 hr/day inpt rehab to d/c home safely. Pt's prior level of function was independent. Objective GeneralVS:Vital Signs: Date Time Temp Pulse Resp B/P B/P Pulse O2 O2 Flow FiO2 Mean Ox Delivery Rate 09/23 0725 97.3 88 17 149/69 95.3 98 / 2310 97.9 84 16 146/74 98.0 100 Room air 09/22 1844 97.9 90 16 122/64 83.1 96 Room air 09/22 1541 99.0 85 18 127/71 89.4 96 Room air PATIENT WEIGHT: Weight (lb): 167Weight (oz): 12.35Weight (kg): 76.100 Medications:Active Meds + DC'd Last 24 HrsSodium Bicarbonate (SODIUM BICARBONATE) 650 MG BID PO [...] Furosemide (LASIX 20MG INJ) 20 MG BLOOD-DOSE BETWEEN IV (CKD) Sodium Chloride (SODIUM CHLORIDE) 10 ML ASDIR IV Pantoprazole Sodium (PROTONIX) 40 MG Q12HR IV Polyethylene Glycol (MIRALAX) 17 GM DAILY PO Sennosides (Senna Lax 8.6 MG TABLET) 8.6 MG DAILY PO Sodium Chloride (SODIUM CHLORIDE) 10 ML ASDIR PRN IV Amitriptyline HCl (ELAVIL) 25 MG BEDTIME PO Zinc Oxide (ZINC OXIDE 30 GM OINTMENT) 1 APPLIC DAILY TOPICAL Sterile Water (WATER FOR IRRIGATION) DRESSING CHANGE ASDIR PRN IRR Insulin Human Lispro (HUMALOG) 0 AC HS SUBQ Dextrose/Water (DEXTROSE 10% IN WATER) 125 ML ASDIR PRN IV (CKD) Dextrose/Water (DEXTROSE 10% IN WATER) 250 ML ASDIR PRN IV (CKD) Glucagon (GLUCAGON) 1 MG ASDIR PRN IM Lidocaine (LIDODERM) 1 PATCH DAILY TOPICAL Acetaminophen (TYLENOL) 650 MG Q6H PRN PRN PO Bisacodyl (DULCOLAX) 10 MG DAILY PRN PRN RECTAL Docusate Sodium (COLACE) 100 MG Q12H PRN PRN PO Hydralazine HCl (APRESOLINE) 10 MG Q6H PRN PRN IV Ondansetron HCl (ZOFRAN) 4 MG Q6H PRN PRN IV Physical ExamGeneral appearance: alert, awake, no acute distressPsych: alert, normal affect, oriented x 3HEENT: anicteric, sclera clearNeck: supple, no JVDCardiovascular: S1/S2, no murmurRespiratory: aerating well, clear bilaterallyAbdomen: bowel sounds present, non-distended, soft, non-tenderSkin: no rash, R BKA HEALING. L ankle/foot wrapped with kerlixMusculoskeletal - general: Musculoskeletal - general: swelling (LLE, calve NT, homans neg), BUE 5/5, LLE4/5, R hip 3-Neuro/DIRECTOR OPERATING ROOM: alert, oriented X 3, CNII-XII intact ResultsFindings/Data:Laboratory Tests: 09/23 09/23 09/23 09/23 1050 0516 0501 0331Chemistry Sodium (134 - 147 mEq/L) 138 Potassium [...] 5.2 H Magnesium (1.80 - 2.40 mg/dL) 2.22Hematology WBC (4.5 - 11.0 x10 3/uL) 11.8 [...] (Auto) (14.0 - 32.0 %) 9.6 L [place] % (Auto) (4.8 - 9.0 %) 4.5 L Eos % (Auto) (0.3 - 3.7 %) 0.1 L Baso % (Auto) (0.0 - 2.0 %) 0.1 Neut # (Auto) (2.0 - 7.6 x10 3/uL) 10.02 H Lymph # (Auto) (1.0 - 3.8 x10 3/uL) 1.13 [place] # (Auto) (0.1 - 0.8 x10 3/uL) 0.53 Eos # (Auto) (0.0 - 0.2 x10 3/uL) 0.01 Baso # (Auto) (0.0 - 0.2 x10 3/uL) 0.01 Abs Immat Gran (auto) (0.00 - 0.03 x10 3/uL) 0.11 H Add Manual Diff NO Immature Gran % (0.0 - 2.0 %) 0.9 Nucleated RBC % (0 - 0 %) 0.0 Nucleated RBCs # (Man) (0.0 - 0.1 x10 3/uL) 0.00 09/22 09/22 1841 1537 Chemistry POC Glucose (70 - 110 MG/DL) 156 H 118 H Diagnosis, Assessment PlanFree Text A P:Assessment:Severe Gas gangrene right foot and right ankle associated with osteomyelitis andnecrotizing fasciitisS/p surgical debridement and washout08/28: S/p right BKA-Dr. Friedmanificant impairment in self-care, ADLs and functional mobilityImpaired mobility and gaitAcute postoperative pain right BKADiabetic polyneuropathyDKA, DM 2, poorly controlled, A1c greater than 14PADMRSA bacteremia/sepsis-treated on acuteAKISevere hyponatremia-resolvedHTNAcute on chronic anemia requiring multiple transfusions, possible GI bleedLeft calf hematomaEdema and clinical arthritis left ankleEarly decubitus to left heel/DTI dorsal left midfootProstatic abscess 08/26: S/p transrectal ultrasound aspiration of abscess and transurethral resection of prostate and unroofing of abscess09/12: Echo: EF 55-59%, grade 1 diastolic dysfunction09/02: JIMENA negative for vegetationMRSA OF NARES09/08:s/p EGD and colonoscopy. EGD showed mild gastritis. Colonoscopy showed rectal polyp that was resected by snare (tubular adenoma)-repeat colonoscopy in 5 years Plan:-PLOF: Independent with transfers and gait-Amputee rehab program-Continue PT and OT-15/12 rehabilitation nursing care.-Case management for safe discharge planning.-Decubitus prevention-Early decubitus to left heel/DTI dorsal left midfoot-zinc oxide to the foot, foam, offloading, podiatry managing-DVT prophylaxis-SCD left leg-Strict fall and safety precautions-Work on bed mobility, transfer training, ADLs, pre-gait and gait exercises-Increase endurance and strength-Monitor pain with therapies-OOB to chair-Monitor p.o. intake and nutrition, albumin 1.3, 1.8, prealbumin less than 5, 16.7 dietary consultation, protein supplements to promote jqwgviz-Xxcfovuz-H2x 14, tight glycemia control- endocrine on board, insulin adjustments-Endocrinology, ID, podiatry, cardiology, IM consulted-Pain management adjusting pain medications-Anemia, patient required multiple units of PRBCs on acute, FOBT positive-IV Protonix-consult GI-serial H H-no evidence of gross bleeding-discussed with Dr. TrinidadVxvlbsok-Daeiyqkgwjgl-mwwirjlrt tlhazldo-QDC-bswtvw-CW Senokot and MiraLAX, DSP-MRSA OF NARES on Bactroban protocol-LLE edema-venous Doppler with complex heterogeneous hypoechoic fluid collectionin the left calf region measuring 8.4, 2.8, 2.5 cm suggestive of hematoma. On low-dose Lasix. Joan wrap LLE-LE edema could be related to hypoalbuminemia leading to third spacing-edema improving-Generalized edema-some shortness of breath and abdominal distention-cardiology gave a dose of IV Lasix-monitor urine output, daily weights-SOB resolved-09/05-venous Doppler of LLE-negative for DVT-Joan wrap dressing and sabncpsqi-Kutefb-khvoqefvdl 8.3, 7.7, 8.2, 7.6, 8, 7.7 transfused 2 units of PRBC on 09/05-09/08: s/p EGD and colonoscopy. EGD showed mild gastritis. Colonoscopy showed rectal polyp that was resected by snare. Anemia likely secondary to chronic kidney disease. Consult renal.-Pathology of polyp came back as tubular adenoma. recommend repeating colonoscopy in 5 years as per GI-Renal ultrasound negative-MRSA bacteremia and prostatic abscess-WBC 12-monitor on Merrem and Daptomycin til 09/24 as per ID-Lasix as per nephrology-Completed Solu-Medrol on prednisone-09/12: Echo-EF 55-60%, indeterminate diastolic function parameters as per cardio-BP elevated. continue to adjust meds-BS better but likely to increase with re-initiation of steroids x3 days startedby Nephrology for AIN-Endo adjusting insulin-Car transfer training 09/23-Labs reviewed-hemoglobin stable at 7.8-GI recommends decrease checking H H and video capsule endoscopy as outpatient-09/23/2022 laboratory this morning showed sodium 138, potassium 5.6 we will give Kayexalate 30 g p.o. x2 doses, CO2 19 trending down, will start sodium bicarbonate 1 p.o. twice daily, BUN 70, creatinine 2.1, if creatinine continues to be elevated, will schedule kidney biopsy, hemoglobin 7.8, platelet 306, bloodcount 11.8-as per renal-Nutritional indices improved-Right AXR-ljxozaj-nzgnflwn resolved, dressings changed today-no bleeding after heparin discontinued, SCD to left leg-Advance therapies as tolerated-discussed treatment plan with patient and -Patient progressing with therapies and is contact-guard assist with transfers for control and safety, wheelchair mobility 40 feet modified independent.-Patient may need kidney biopsy as per renal-If patient's kidney function are not improving tomorrow, renal suggest transferring to medicine since he will need kidney biopsy. If kidney function significantly better tomorrow, he can go home and follow-up as outpatient. Discussed with renal. Progress: PERFORMING MOVEO AT 8% INCLINE PERFORMING 2 MIN SQUATS X 4 HAVING GOOD CONTROL UNTIL ABOUT 45-15 SEC LEFT INSET HAVING LIMITED ENDURANCE. PERFORMING SIT TO STANDS IN //BARS X 5 WITH SBA, NEEDING CUES TO TAKE HIS TIME, REST BETWEEN ATTEMPTS D/T LIMITED ENDURANCE. ATTEMPTING HEEL RAISES IN // BARS 3 X 10-15 WITH LIMITED HEEL LIFT OFF AT THISTIME. PM RPlease see team note.Plan and goals discussed with the patient. I agree with the teams findingELOS- [09/24] on IV antibiotics until 09/24 if medically clearedDC-Home with -Home healthDME-sliding board, wheelchair, drop arm bedside commode-DME to be delivered tomorrow Total time 34 minutes greater than 50% of the time spent examining patient, discussing with patient about BKA site healing, renal function, on steroids, medical issues, anemia, discharge plans, rehab plan of care, goals, therapies, progress, labs, medications. EMR and MAR is reviewed. All questions answeredOrders: Procedure Date/time Status OT EXERCISE 15MIN 09/23 UNK Complete OT ADL 09/23 UNK Complete Consultants: cardiology, endocrinology, hospitalist, infectious disease, podiatryRehab attestation:Face to face exam completed. Treatment plan discussed with patient. Meets continued stay criteria. Agree with interdisciplinary treatment plan. at 1448 RPT #:[id number] OF REPORTPRProgress [id number]:22:00G.[id number] able for patient ekooETFSQFPKCFGSHT5043-14-18S07:49:17 [facility] 2022-09-23 07:17:00 [id number] [id number]+E15KwZeo0i [id number]-14U29:17:00 [facility] HospitalNeph[facility] Progress NoteREPORT#:[id number] REPORT STATUS: SignedDATE:09/23/22 TIME: 716 PATIENT: KARMA ROWLAND UNIT #: [id number]#: [id number] [address] [birth year] AGE: 56 SEX: M ATTEND: Mj Vences [facility] AUTHOR: Barrera Ramírez MD * ALL edits or amendments must be made on the electronic/computer document * SubjectiveChief complaint:Infected footHPI:Patient seen and evaluated on 09/09/2022, note started, records reviewed and orders placed on 09/08/2022, 56-year-old male with history of diabetes mellitus type 2, hypertension and peripheral vascular disease who was initially admitted to acute care with altered mental status and right foot infection/gangrene, 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 Patient had persistent anemia requiring blood transfusion. His fecal occult blood was positive and his creatinine was 1.2 and increased to 1.4 today, laboratories today showed hemoglobin 8.5, platelet 231, blood count 9.1, sodium 135, potassium 4.6, CO2 22, BUN 22, creatinine 1.4. Renal consult was requested for evaluation management of elevated BUN and creatinine and if his decreased GFR iscontributing to his anemia. Patient reports:Yes: complaints. Comments:Patient seen and evaluated, HPI no change from initial, feels okay. Review of SystemsConstitutional:Reports: fatigue. Denies: chills, fever. Skin:Reports: swelling. Denies: abrasion, bruising. Allergy/Immun:Denies: hives, itching. Eyes:Denies: redness, discharge. ENT:Denies: ear drainage, ear ringing. Respiratory:Denies: hemoptysis, SOB. Cardiovascular:Denies: chest pain. Objective GeneralVS/I O:Vital Signs: Date Time Temp Pulse Resp B/P [...] 0 Urine/Stool Mix PATIENT WEIGHT: Weight (lb): 167Weight (oz): 12.35Weight (kg): 76.100 MedicationsActive Meds + DC'd Last 24 HrsAmlodipine Besylate (NORVASC) 10 MG DAILY PO Prednisone (predniSONE) 50 MG C BK PO Hydralazine HCl (APRESOLINE) 100 MG Q8HR PO Insulin Glargine (Semglee) 19 UNIT BEDTIME SUBQ Insulin Human Lispro (HUMALOG) 10 UNIT AC SUBQ Meropenem (MEROPENEM) 500 MG Q8H IV (DC) Sterile Water (WATER FOR INJECTION) 10 MLCarvedilol (COREG) 25 MG C BK DIN PO Gabapentin (NEURONTIN) 100 MG Q8HR PO Oxycodone/Acetaminophen (PERCOCET 5/325MG TAB) 2 TAB Q4H PRN PRN PO Folic Acid (FOLIC ACID) 2 MG DAILY PO Multivitamins (TAB-A-MOHAN) 1 TAB DAILY PO Furosemide (LASIX 20MG INJ) 20 MG BLOOD-DOSE BETWEEN IV (CKD) Sodium Chloride (SODIUM CHLORIDE) 10 ML ASDIR IV Pantoprazole Sodium (PROTONIX) 40 MG Q12HR IV Polyethylene Glycol (MIRALAX) 17 GM DAILY PO Sennosides (Senna Lax 8.6 MG TABLET) 8.6 MG DAILY PO Sodium Chloride (SODIUM CHLORIDE) 10 ML ASDIR PRN IV Amitriptyline HCl (ELAVIL) 25 MG BEDTIME PO Zinc Oxide (ZINC OXIDE 30 GM OINTMENT) 1 APPLIC DAILY TOPICAL Sterile Water (WATER FOR IRRIGATION) DRESSING CHANGE ASDIR PRN IRR Insulin Human Lispro (HUMALOG) 0 AC HS SUBQ Dextrose/Water (DEXTROSE 10% IN WATER) 125 ML ASDIR PRN IV (CKD) Dextrose/Water (DEXTROSE 10% IN WATER) 250 ML ASDIR PRN IV (CKD) Glucagon (GLUCAGON) 1 MG ASDIR PRN IM Lidocaine (LIDODERM) 1 PATCH DAILY TOPICAL Acetaminophen (TYLENOL) 650 MG Q6H PRN PRN PO Bisacodyl (DULCOLAX) 10 MG DAILY PRN PRN RECTAL Docusate Sodium (COLACE) 100 MG Q12H PRN PRN PO Hydralazine HCl (APRESOLINE) 10 MG Q6H PRN PRN IV Ondansetron HCl (ZOFRAN) 4 MG Q6H PRN PRN IV Physical ExamGeneral appearance: alert, no acute distressHead/eyes: atraumatic, normocephalicENT: normal noseNeck: non-tender, supple/no meningismusCardiovascular: normal heart sounds, no rubRespiratory: aerating well, symmetric expansionAbdomen: non-tender, softGenitourinary: no flank painExtremities: non-tender, no edemaMusculoskeletal: no CVA tenderness, no tendernessNeuro/DIRECTOR OPERATING ROOM: alert, 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 Considered stroke alert: noSkin: dry, intact ResultsFindings/Data:Laboratory Tests 09/23 09/23 09/22 09/22 09/22 0516 0331 1841 1537 1057 Chemistry POC Glucose (70 - 110 MG/DL) 226 H 190 H 156 H 118 H 170 H 09/22 09/22 09/22 09/21 09/21 0617 0436 0436 2047 1552Chemistry Sodium (134 - 147 mEq/L) 138 Potassium [...] - 77.0 %) 84.8 H 81.7 H 82.2 H Lymph % (Auto) (14.0 - 32.0 %) 9.6 L 11.3 L 11.3 L [place] % (Auto) (4.8 - 9.0 %) 4.5 L 5.7 5.3 Eos % (Auto) (0.3 - 3.7 %) 0.1 L 0.2 L 0.2 L Baso % (Auto) (0.0 - 2.0 %) 0.1 0.0 0.1 Neut # (Auto) (2.0 - 7.6 x10 3/uL) 10.02 H 9.79 H 10.70 H Lymph # (Auto) (1.0 - 3.8 x10 3/uL) 1.13 1.35 1.47 Len[place] # (Auto) (0.1 - 0.8 x10 3/uL) 0.53 0.68 0.69 Eos # (Auto) (0.0 - 0.2 x10 3/uL) 0.01 0.02 0.03 Baso # (Auto) (0.0 - 0.2 x10 3/uL) 0.01 0.00 0.01 Abs Immat Gran (auto) (0.00 - 0.03 x10 3/uL) 0.11 H 0.13 H 0.12 H Add Manual Diff NO NO NO Immature Gran % (0.0 - 2.0 %) 0.9 1.1 0.9 Nucleated RBC % (0 - 0 %) 0.0 0.0 0.0 Nucleated RBCs # (Man) (0.0 - 0.1 x10 3/uL) 0.00 0.00 0.00 Laboratory Tests 0509/23 05 0331 1841 1537 1057 Chemistry POC Glucose [...] (Auto) (14.0 - 32.0 %) 9.6 L Len[place] % (Auto) (4.8 - 9.0 %) 4.5 L Eos % (Auto) (0.3 - 3.7 %) 0.1 L Baso % (Auto) (0.0 - 2.0 %) 0.1 Neut # (Auto) (2.0 - 7.6 x10 3/uL) 10.02 H Lymph # (Auto) (1.0 - 3.8 x10 3/uL) 1.13 Lenoir # (Auto) (0.1 - 0.8 x10 3/uL) 0.53 Eos # (Auto) (0.0 - 0.2 x10 3/uL) 0.01 Baso # (Auto) (0.0 - 0.2 x10 3/uL) 0.01 Abs Immat Gran (auto) (0.00 - 0.03 x10 3/uL) 0.11 H Add Manual Diff NO Immature Gran % (0.0 - 2.0 %) 0.9 Nucleated RBC % (0 - 0 %) 0.0 Nucleated RBCs # (Man) (0.0 - 0.1 x10 3/uL) 0.00 Diagnosis, Assessment PlanFree Text A P:Patient seen and evaluated, discussed with care team, images and laboratories reviewed.Diabetes mellitus: Insulin: Monitor blood sugar closely and adjust medications as needed, followed by endocrinology.Hypertension: Blood pressure is not well controlled, increase Coreg to 12.5 mg p.o. twice daily: Monitor blood pressure closely and adjust medications as neededRight foot gangrene/infection status post right BKAAnemia: Status post EGD and colonoscopy which were negative for active GI bleeding, patient had work-up in July 2022 which showed very high B12, normal folate, very low iron saturation but very high ferritin which was likely relatedto his infection, likely patient is very iron deficient, will repeat lab and give IV iron if needed. We will check serum immunofixation.Acute kidney injury: We will check renal bladder ultrasound, check postvoid residual, check urine protein creatinine ratioHypomagnesemia: We will supplement09/10/2022 laboratory this morning showed sodium 135, potassium 4.2, CO2 21, BUN 25, creatinine 1.9 continues to worsen, etiology unclear, however his development some eosinophilia not sure if he is developing AIN, suggest changingcefepime to a different class of antibiotic if possible, will check renal bladder ultrasound09/11/2022 laboratory this morning showed sodium 134, potassium 4.3, CO2 22, BUN 26, creatinine 2 up from 1.9, hopefully creatinine is plateauing, renal ultrasound negative.09/12/2022 laboratory this morning showed sodium 134, potassium 4.2, CO2 20, BUN 31, creatinine 2.4 continues to worsen, discussed with ID, AIN is probably the etiology of the unexplained deterioration of his renal function, antibiotics to be adjusted by infectious disease, will give Solu-Medrol 125 mg IV daily for 3 days. Significant lower extremity edema, will start Lasix 20 mg p.o. twice daily.09.13.22: pt was seen and examined. Very thirsty. serum creatinine is worsening today. Vancomycin was stopped yesterday and Solu medrol was started. Mild hypovolemic hyponatremia. Will DC lasix and monitor his renal functions. BP is well controlled. 23: pt was seen and examined. Feels better but still thirsty. I stopped hislasix. will start NS at 75 cc for one Leter only. serum creatinine is improving.Received three doses of Solu Medrol a well. BP is on the higher side, likely secondary to steroids. will monitor for now. mild hypovelmic hyponatremia. also could be secondary to hyperglycemia. 09/15/2022 we will give additional dose of Solu-Medrol 125 mg IV today, laboratory this morning showed sodium 132, potassium 4.7, CO2 17, chloride 105, BUN 38, creatinine 2.9, glucose 312, hemoglobin 8.2, platelet 341, blood count 8.7, needs better blood sugar control, if creatinine does not start improving the next couple days will plan for kidney biopsy09/16/2022 laboratory this morning showed sodium 135, potassium 4.5, CO2 20, BUN 60, creatinine 2.7, better down from 2.9, hemoglobin 7.6, platelet 360, blood count 9.5, will give prednisone 80 mg p.o. today, blood pressure is elevated, will add hydralazine 25 mg p.o. 3 times daily, scrotal and LE swelling will giveLasix 40 mg IV x blood pressure still elevated, will increase hydralazine to 50 mg p.o.3 times daily, will give 80 mg of prednisone today, urine output with Lasix 4125, laboratory this morning showed sodium 136, potassium 4.5, CO2 21, BUN 66, creatinine 2.4 down from 2.7, will give 3 more doses of IV Lasix 40 mg every 8 hours09/18/2022 laboratory this morning showed sodium 138, potassium 4.1, CO2 21, BUN 66, creatinine 2.2 continues to improve, urine output 2.7 L, hemoglobin 7.6, platelet 341, blood count 10.6, will give Lasix 40 mg IV every 8 for 3 doses, start prednisone 60 mg p.o. daily for 3 days, increase hydralazine to 75 mg p.o.3 times daily.09/19/2022 blood pressure better, sodium 139, potassium 3.8, CO2 22, BUN 72 up from 66, creatinine 2.3 up from 2.2, will hold off diuretics, urine output reported 2 L, magnesium 1.69 we will give magnesium sulfate 2 g IV x1, continue prednisone.09/20/2022 laboratory this morning showed sodium 136, potassium 4.2, CO2 21, BUN 76, creatinine 2.2 down from 2.3, hemoglobin 7.6, platelet 302, blood count 12.3, continue off diuretics09/21/2022 blood pressure still elevated will increase hydralazine to 100 mg p.o.3 times daily, hemoglobin 7.6, platelet 296, blood count 13, urine output reported 3025, will start prednisone 50 mg p.o. daily for 3 days, sodium 137, potassium 4.6, CO2 22, BUN 75, creatinine 1.9 down from 2.2 continues to improve.09/22/2022 laboratory this morning showed sodium 138, potassium 5.1, CO2 20, BUN 71, creatinine 1.8 down from 1.9 continues to improve, continue prednisone, hemoglobin 7.7, platelet 305, blood count 12, blood pressure still elevated willadd Norvasc 10 mg p.o. daily.09/23/2022 laboratory this morning showed sodium 138, potassium 5.6 we will give Kayexalate 30 g p.o. x2 doses, CO2 19 trending down, will start sodium bicarbonate 1 p.o. twice daily, BUN 70, creatinine 2.1, if creatinine continues to be elevated, will schedule kidney biopsy, hemoglobin 7.8, platelet 306, bloodcount 11.8Consultants: cardiology, endocrinology, hospitalist, infectious disease, podiatry at 0930 RPT #:[id number] OF REPORTPRProgress [id number]:17:00G.[id number] able for patient xhezMLUZJGQPMGECIE1587-86-78P27:30:54 [facility] 2022-09-22 20:43:00 [id number] PHwKUDGElmqTTgFguHY/FjU1+Wb1196-43-28J48:43:00 [facility] ([facility])Podiatry Progress NoteREPORT#:[id number] REPORT STATUS: SignedDATE:09/22/22 TIME: 2042 PATIENT: KARMA ROWLAND UNIT #: [id number]#: [id number] [place] [facility]DOB: [birth year] AGE: 56 SEX: M ATTEND: Mj Vences MDADM AUTHOR: Liam Pedersen DPM * ALL edits or amendments must be made on the electronic/computer document * SubjectiveChief complaint:left heel ulcer. left ankle painPatient reports: no confusion, no constipation, no dizziness, no headache, no itching Objective GeneralVS:Last Documented: Result Date Time Pulse Ox 96 09/23 1843 B/P 122/64 09/23 1843 B/P Mean 83.1 09/23 1843 O2 Delivery Room air 09/23 1843 Temp 36.6 09/23 1843 Pulse 90 09/23 1843 Resp 16 09/23 1843 O2 Flow Rate 2 09/08 1322 PATIENT WEIGHT: Weight (lb): 167Weight (oz): 12.35Weight (kg): 76.100 Medications:Active Meds + DC'd Last 24 HrsAmlodipine Besylate (NORVASC) 10 MG DAILY PO Prednisone (predniSONE) 50 MG C BK PO Hydralazine HCl (APRESOLINE) 100 MG Q8HR PO Insulin Glargine (Semglee) 19 UNIT BEDTIME SUBQ Insulin Human Lispro (HUMALOG) 10 UNIT AC SUBQ Meropenem (MEROPENEM) 500 MG Q8H IV (DC) Sterile Water (WATER FOR INJECTION) 10 MLCarvedilol (COREG) 25 MG C BK DIN PO Gabapentin (NEURONTIN) 100 MG Q8HR PO Oxycodone/Acetaminophen (PERCOCET 5/325MG TAB) 2 TAB Q4H PRN PRN PO Folic Acid (FOLIC ACID) 2 MG DAILY PO Multivitamins (TAB-A-MOHAN) 1 TAB DAILY PO Furosemide (LASIX 20MG INJ) 20 MG BLOOD-DOSE BETWEEN IV (CKD) Sodium Chloride (SODIUM CHLORIDE) 10 ML ASDIR IV Pantoprazole Sodium (PROTONIX) 40 MG Q12HR IV Polyethylene Glycol (MIRALAX) 17 GM DAILY PO Sennosides (Senna Lax 8.6 MG TABLET) 8.6 MG DAILY PO Sodium Chloride (SODIUM CHLORIDE) 10 ML ASDIR PRN IV Amitriptyline HCl (ELAVIL) 25 MG BEDTIME PO Zinc Oxide (ZINC OXIDE 30 GM OINTMENT) 1 APPLIC DAILY TOPICAL Sterile Water (WATER FOR IRRIGATION) DRESSING CHANGE ASDIR PRN IRR Insulin Human Lispro (HUMALOG) 0 AC HS SUBQ Dextrose/Water (DEXTROSE 10% IN WATER) 125 ML ASDIR PRN IV (CKD) Dextrose/Water (DEXTROSE 10% IN WATER) 250 ML ASDIR PRN IV (CKD) Glucagon (GLUCAGON) 1 MG ASDIR PRN IM Lidocaine (LIDODERM) 1 PATCH DAILY TOPICAL Acetaminophen (TYLENOL) 650 MG Q6H PRN PRN PO Bisacodyl (DULCOLAX) 10 MG DAILY PRN PRN RECTAL Docusate Sodium (COLACE) 100 MG Q12H PRN PRN PO Hydralazine HCl (APRESOLINE) 10 MG Q6H PRN PRN IV Ondansetron HCl (ZOFRAN) 4 MG Q6H PRN PRN IV I O:24 hour I O ending at 0700: 05/01 0700 09/21 1900 Intake Total Output Total 2100 Balance -2100 Number 1 Bowel Movements Number 0 Incontinent Voids Number Voids 0 Output, Urine 2100 Dietitian nutrition assessmentThe data set between the solid lines has been imported from the dietitian's assessment. BMI Calculated: 27.1Nutrition related diagnosis: Nutrition diagnosis details: Nutrition problem: Altered nutrition labsNutrition etiology: DMNutrition signs and symptoms: HYPER/HYPOGLYCEMIA, A1C >14Nutrition prescription: CONTINUE RENAL DM DIETDietitian name: You Umanzorrufino, DIETAssessment completed: 09/18/22 Physical ExamGeneral appearance: alert, awake, oriented, pleasant, no respiratory distressWound/incision: Location:left foot Site condition: dp/pt 2/4 left. light touch decreased left foot. ulcer starting at posterior left heel. eccymosis noted. early likely stage 1. left ankle has edema. pain with aggressive ROM left ankle. dorsal left midfoot is starting to have tissue injuryLE vascular pulse assess:2+ L posterior tibialis, 2+ L dorsalis pedis Considered stroke alert: noUlcer: Location: DTI dorsal left midfoot ResultsFindings/Data:Laboratory Tests: 09/22 09/22 09/22 09/22 09/22 1841 1537 1057 0617 0436Chemistry POC Glucose (70 - 110 MG/DL) 156 H 118 H 170 H 251 H B-Natriuretic Peptide (0 - 100 251.0 HPG/ML) 09/22 09/21 0436 2047 Chemistry Sodium (134 [...] (Auto) (14.0 - 32.0 %) 11.3 L Len[place] % (Auto) (4.8 - 9.0 %) 5.7 Eos % (Auto) (0.3 - 3.7 %) 0.2 L Baso % (Auto) (0.0 - 2.0 %) 0.0 Neut # (Auto) (2.0 - 7.6 x10 3/uL) 9.79 H Lymph # (Auto) (1.0 - 3.8 x10 3/uL) 1.35 Lenoir # (Auto) (0.1 - 0.8 x10 3/uL) 0.68 Eos # (Auto) (0.0 - 0.2 x10 3/uL) 0.02 Baso # (Auto) (0.0 - 0.2 x10 3/uL) 0.00 Abs Immat Gran (auto) (0.00 - 0.03 x10 3/uL) 0.13 H Add Manual Diff NO Immature Gran % (0.0 - 2.0 %) 1.1 Nucleated RBC % (0 - 0 %) 0.0 Nucleated RBCs # (Man) (0.0 - 0.1 x10 3/uL) 0.00 Diagnosis, Assessment PlanFree Text A P:DM with neuropathyearly decub ulcer left heelOA/edema left ankleearly ulcer/DTI dorsal left midfoot zinc oxide to foot and heelfoam to heelon IV abxon PO gabapentinoffloading bootace wraps to ankle, only when OOB with therapy.zinc oxide interchange with bactroban to dorsal left foot Consultants: cardiology, endocrinology, hospitalist, infectious disease, podiatry at 3838 RPT #:[id number] OF REPORTPRProgress [id number]:43:00G.[id number] able for patient [id number]:46:26 [facility] 2022-09-22 17:39:00 [id number]/ [id number] pm+NHifVKcdULY7I6VlkY1d1ky23709-47-00B96:39:00 [facility] ([facility])Endocrinology Progress NoteREPORT#:[id number] REPORT STATUS: SignedDATE:09/22/22 TIME: 1739 PATIENT: KARMA ROWLAND UNIT #: [id number]#: [id number] [address] [birth year] AGE: 56 SEX: M ATTEND: Mj Vences MDADM AUTHOR: Braxton Chapin MD * ALL edits or amendments must be made on the electronic/computer document * SubjectivePatient reports: no complaints Objective GeneralVS:Last Documented: Result Date Time Pulse Ox 96 09/22 1541 B/P 127/71 09/22 1541 B/P Mean 89.4 09/22 1541 O2 Delivery Room air 09/22 1541 Temp 37.2 09/22 1541 Pulse 85 09/22 1541 Resp 18 09/22 1541 O2 Flow Rate 2 09/08 1322 PATIENT WEIGHT: Weight (lb): 167Weight (oz): 12.35Weight (kg): 76.100 Medications:Active Meds + DC'd Last 24 HrsAmlodipine Besylate (NORVASC) 10 MG DAILY PO Prednisone (predniSONE) 50 MG C BK PO Hydralazine HCl (APRESOLINE) 100 MG Q8HR PO Insulin Glargine (Semglee) 19 UNIT BEDTIME SUBQ Insulin Human Lispro (HUMALOG) 10 UNIT AC SUBQ Meropenem (MEROPENEM) 500 MG Q8H IV (DC) Sterile Water (WATER FOR INJECTION) 10 MLCarvedilol (COREG) 25 MG C BK DIN PO Gabapentin (NEURONTIN) 100 MG Q8HR PO Oxycodone/Acetaminophen (PERCOCET 5/325MG TAB) 2 TAB Q4H PRN PRN PO Folic Acid (FOLIC ACID) 2 MG DAILY PO Multivitamins (TAB-A-MOHAN) 1 TAB DAILY PO Furosemide (LASIX 20MG INJ) 20 MG BLOOD-DOSE BETWEEN IV (CKD) Sodium Chloride (SODIUM CHLORIDE) 10 ML ASDIR IV Pantoprazole Sodium (PROTONIX) 40 MG Q12HR IV Polyethylene Glycol (MIRALAX) 17 GM DAILY PO Sennosides (Senna Lax 8.6 MG TABLET) 8.6 MG DAILY PO Sodium Chloride (SODIUM CHLORIDE) 10 ML ASDIR PRN IV Amitriptyline HCl (ELAVIL) 25 MG BEDTIME PO Zinc Oxide (ZINC OXIDE 30 GM OINTMENT) 1 APPLIC DAILY TOPICAL Sterile Water (WATER FOR IRRIGATION) DRESSING CHANGE ASDIR PRN IRR Insulin Human Lispro (HUMALOG) 0 AC HS SUBQ Dextrose/Water (DEXTROSE 10% IN WATER) 125 ML ASDIR PRN IV (CKD) Dextrose/Water (DEXTROSE 10% IN WATER) 250 ML ASDIR PRN IV (CKD) Glucagon (GLUCAGON) 1 MG ASDIR PRN IM Lidocaine (LIDODERM) 1 PATCH DAILY TOPICAL Acetaminophen (TYLENOL) 650 MG Q6H PRN PRN PO Bisacodyl (DULCOLAX) 10 MG DAILY PRN PRN RECTAL Docusate Sodium (COLACE) 100 MG Q12H PRN PRN PO Hydralazine HCl (APRESOLINE) 10 MG Q6H PRN PRN IV Ondansetron HCl (ZOFRAN) 4 MG Q6H PRN PRN IV Physical ExamGeneral appearance: alert, awake Diagnosis, Assessment PlanHospital course to date:Laboratory Tests: 09/22 09/22 09/22 09/22 1537 1057 [...] (Auto) (14.0 - 32.0 %) 11.3 L [place] % (Auto) (4.8 - 9.0 %) 5.7 Eos % (Auto) (0.3 - 3.7 %) 0.2 L Baso % (Auto) (0.0 - 2.0 %) 0.0 Neut # (Auto) (2.0 - 7.6 x10 3/uL) 9.79 H Lymph # (Auto) (1.0 - 3.8 x10 3/uL) 1.35 [place] # (Auto) (0.1 - 0.8 x10 3/uL) 0.68 Eos # (Auto) (0.0 - 0.2 x10 3/uL) 0.02 Baso # (Auto) (0.0 - 0.2 x10 3/uL) 0.00 Abs Immat Gran (auto) (0.00 - 0.03 x10 3/uL) 0.13 H Add Manual Diff NO Immature Gran % (0.0 - 2.0 %) 1.1 Nucleated RBC % (0 - 0 %) 0.0 Nucleated RBCs # (Man) (0.0 - 0.1 x10 3/uL) 0.00 Laboratory Tests: 09/21 09/21 09/21 09/21 09/21 1552 1437 1107 0530 0500Chemistry Sodium (134 - 147 mEq/L) 137 Potassium [...] 5.0 H Magnesium (1.80 - 2.40 mg/dL) 2.06Hematology WBC (4.5 - 11.0 x10 3/uL) 13.0 [...] (Auto) (14.0 - 32.0 %) 11.3 L [place] % (Auto) (4.8 - 9.0 %) 5.3 Eos % (Auto) (0.3 - 3.7 %) 0.2 L Baso % (Auto) (0.0 - 2.0 %) 0.1 Neut # (Auto) (2.0 - 7.6 x10 3/uL) 10.70 H Lymph # (Auto) (1.0 - 3.8 x10 3/uL) 1.47 [place] # (Auto) (0.1 - 0.8 x10 3/uL) 0.69 Eos # (Auto) (0.0 - 0.2 x10 3/uL) 0.03 Baso # (Auto) (0.0 - 0.2 x10 3/uL) 0.01 Abs Immat Gran (auto) (0.00 - 0.03 0.12 Hx10 3/uL) Add Manual Diff NO Immature Gran % (0.0 - 2.0 %) 0.9 Nucleated RBC % (0 - 0 %) 0.0 Nucleated RBCs # (Man) (0.0 - 0.1 0.00x10 3/uL) Laboratory Tests: 09/20 09/20 09/20 09/20 09/19 1140 0922 0505 0458 1921Chemistry Sodium (134 - 147 mEq/L) 136 Potassium [...] 5.4 H Magnesium (1.80 - 2.40 mg/dL) 2.05Hematology WBC (4.5 - 11.0 x10 3/uL) 12.3 [...] (Auto) (14.0 - 32.0 %) 13.0 L [place] % (Auto) (4.8 - 9.0 %) 6.2 Eos % (Auto) (0.3 - 3.7 %) 0.2 L Baso % (Auto) (0.0 - 2.0 %) 0.1 Neut # (Auto) (2.0 - 7.6 x10 3/uL) 9.84 H Lymph # (Auto) (1.0 - 3.8 x10 3/uL) 1.60 [place] # (Auto) (0.1 - 0.8 x10 3/uL) 0.76 Eos # (Auto) (0.0 - 0.2 x10 3/uL) 0.03 Baso # (Auto) (0.0 - 0.2 x10 3/uL) 0.01 Abs Immat Gran (auto) (0.00 - 0.03 0.10 Hx10 3/uL) Add Manual Diff NO Immature Gran % (0.0 - 2.0 %) 0.8 Nucleated RBC % (0 - 0 %) 0.0 Nucleated RBCs # (Man) (0.0 - 0.1 0.00x10 3/uL) Laboratory Tests: 09/19 09/19 09/19 09/18 09/18 1133 0501 0448 2151 1933Chemistry Sodium (134 - 147 mEq/L) 139 Potassium [...] H Magnesium (1.80 - 2.40 mg/dL) 1.69 LHematology WBC (4.5 - 11.0 x10 3/uL) 13.3 [...] % (Auto) (14.0 - 32.0 %) 16.5 [place] % (Auto) (4.8 - 9.0 %) 8.4 Eos % (Auto) (0.3 - 3.7 %) 2.4 Baso % (Auto) (0.0 - 2.0 %) 0.2 Neut # (Auto) (2.0 - 7.6 x10 3/uL) 9.50 H Lymph # (Auto) (1.0 - 3.8 x10 3/uL) 2.19 [place] # (Auto) (0.1 - 0.8 x10 3/uL) 1.11 H Eos # (Auto) (0.0 - 0.2 x10 3/uL) 0.32 H Baso # (Auto) (0.0 - 0.2 x10 3/uL) 0.02 Abs Immat Gran (auto) (0.00 - 0.03 0.14 Hx10 3/uL) Add Manual Diff NO Immature Gran % (0.0 - 2.0 %) 1.1 Nucleated RBC % (0 - 0 %) 0.0 Nucleated RBCs # (Man) (0.0 - 0.1 0.00x10 3/uL) 09/18 1611 Chemistry POC Glucose (70 [...] % (Auto) (14.0 - 32.0 %) 17.4 [place] % (Auto) (4.8 - 9.0 %) 6.9 Eos % (Auto) (0.3 - 3.7 %) 0.1 L Baso % (Auto) (0.0 - 2.0 %) 0.1 Neut # (Auto) (2.0 - 7.6 x10 3/uL) 7.91 H Lymph # (Auto) (1.0 - 3.8 x10 3/uL) 1.85 [place] # (Auto) (0.1 - 0.8 x10 3/uL) 0.73 Eos # (Auto) (0.0 - 0.2 x10 3/uL) 0.01 Baso # (Auto) (0.0 - 0.2 x10 3/uL) 0.01 Abs Immat Gran (auto) (0.00 - 0.03 x10 3/uL) 0.10 H Add Manual Diff NO Immature Gran % (0.0 - 2.0 %) 0.9 Nucleated RBC % (0 - 0 %) 0.0 Nucleated RBCs # (Man) (0.0 - 0.1 x10 3/uL) 0.00 Laboratory Tests: 09/17 09/17 09/17 09/17 09/17 [...] (Auto) (14.0 - 32.0 %) 10.2 L [place] % (Auto) (4.8 - 9.0 %) 2.9 L Eos % (Auto) (0.3 - 3.7 %) 0.0 L Baso % (Auto) (0.0 - 2.0 %) 0.1 Neut # (Auto) (2.0 - 7.6 x10 3/uL) 7.58 Lymph # (Auto) (1.0 - 3.8 x10 3/uL) 0.91 L [place] # (Auto) (0.1 - 0.8 x10 3/uL) 0.26 Eos # (Auto) (0.0 - 0.2 x10 3/uL) 0.00 Baso # (Auto) (0.0 - 0.2 x10 3/uL) 0.01 Abs Immat Gran (auto) (0.00 - 0.03 x10 3/uL) 0.14 H Add Manual Diff NO Immature Gran % (0.0 - 2.0 %) 1.6 Nucleated RBC % (0 - 0 %) 0.0 Nucleated RBCs # (Man) (0.0 - 0.1 x10 3/uL) 0.00 Laboratory Tests: 09/16 09/16 09/16 09/16 1549 1441 1110 0553 Chemistry POC Glucose (70 - 110 MG/DL) 62 L 60 L 148 H 195 H 09/16 09/15 0455 1937 Chemistry Sodium [...] % (Auto) (14.0 - 32.0 %) 18.6 Lenoir % (Auto) (4.8 - 9.0 %) 6.7 Eos % (Auto) (0.3 - 3.7 %) 0.2 L Baso % (Auto) (0.0 - 2.0 %) 0.1 Neut # (Auto) (2.0 - 7.6 x10 3/uL) 6.99 Lymph # (Auto) (1.0 - 3.8 x10 3/uL) 1.77 Lenoir # (Auto) (0.1 - 0.8 x10 3/uL) 0.64 Eos # (Auto) (0.0 - 0.2 x10 3/uL) 0.02 Baso # (Auto) (0.0 - 0.2 x10 3/uL) 0.01 Abs Immat Gran (auto) (0.00 - 0.03 x10 3/uL) 0.10 H Add Manual Diff NO Immature Gran % (0.0 - 2.0 %) 1.0 Nucleated RBC % (0 - 0 %) 0.0 Nucleated RBCs # (Man) (0.0 - 0.1 x10 3/uL) 0.00 Laboratory Tests: 09/15 09/15 09/15 09/15 1640 1304 1154 0519 Chemistry POC Glucose (70 - 110 MG/DL) 137 H 126 H 309 H Urines Urine Color (YEL/STRAW) YELLOW Urine Appearance (CLEAR) SL CLOUDY Urine pH (5.0 - 7.0) 5.0 Ur Specific [place] (1.005 - 1.030) 1.013 Urine Protein (NEGATIVE) [...] (Auto) (14.0 - 32.0 %) 11.3 L [place] % (Auto) (4.8 - 9.0 %) 3.2 L Eos % (Auto) (0.3 - 3.7 %) 0.0 L Baso % (Auto) (0.0 - 2.0 %) 0.1 Neut # (Auto) (2.0 - 7.6 x10 3/uL) 7.35 Lymph # (Auto) (1.0 - 3.8 x10 3/uL) 0.98 L [place] # (Auto) (0.1 - 0.8 x10 3/uL) 0.28 Eos # (Auto) (0.0 - 0.2 x10 3/uL) 0.00 Baso # (Auto) (0.0 - 0.2 x10 3/uL) 0.01 Abs Immat Gran (auto) (0.00 - 0.03 x10 3/uL) 0.04 H Add Manual Diff NO Immature Gran % (0.0 - 2.0 %) 0.5 Nucleated RBC % (0 - 0 %) 0.0 Nucleated RBCs # (Man) (0.0 - 0.1 x10 3/uL) 0.00 Microbiology: Date/Time Procedure - Status Source Growth 09/15 0515 MRSA DNA Surveillance Screen - COMP NASAL Laboratory Tests: 09/14 09/14 09/14 09/14 09/13 1130 0736 0505 0563 1937Chemistry Sodium (134 - 147 mEq/L) 132 L [...] H Calcium (8.0 - 10.5 mg/dL) 7.5 LHematology WBC (4.5 - 11.0 x10 3/uL) 9.5 [...] (Auto) (14.0 - 32.0 %) 13.9 L [place] % (Auto) (4.8 - 9.0 %) 5.1 Eos % (Auto) (0.3 - 3.7 %) 0.0 L Baso % (Auto) (0.0 - 2.0 %) 0.1 Neut # (Auto) (2.0 - 7.6 x10 3/uL) 7.58 Lymph # (Auto) (1.0 - 3.8 x10 3/uL) 1.31 [place] # (Auto) (0.1 - 0.8 x10 3/uL) 0.48 Eos # (Auto) (0.0 - 0.2 x10 3/uL) 0.00 Baso # (Auto) (0.0 - 0.2 x10 3/uL) 0.01 Abs Immat Gran (auto) (0.00 - 0.03 0.07 Hx10 3/uL) Add Manual Diff NO Immature Gran % (0.0 - 2.0 %) 0.7 Nucleated RBC % (0 - 0 %) 0.0 Nucleated RBCs # (Man) (0.0 - 0.1 0.00x10 3/uL) 09/13 1629 Chemistry POC Glucose (70 [...] (Auto) (14.0 - 32.0 %) 10.4 L [place] % (Auto) (4.8 - 9.0 %) 3.5 L Eos % (Auto) (0.3 - 3.7 %) 0.0 L Baso % (Auto) (0.0 - 2.0 %) 0.1 Neut # (Auto) (2.0 - 7.6 x10 3/uL) 8.34 H Lymph # (Auto) (1.0 - 3.8 x10 3/uL) 1.02 [place] # (Auto) (0.1 - 0.8 x10 3/uL) 0.34 Eos # (Auto) (0.0 - 0.2 x10 3/uL) 0.00 Baso # (Auto) (0.0 - 0.2 x10 3/uL) 0.01 Abs Immat Gran (auto) (0.00 - 0.03 x10 3/uL) 0.07 H Add Manual Diff NO Immature Gran % (0.0 - 2.0 %) 0.7 Nucleated RBC % (0 - 0 %) 0.0 Nucleated RBCs # (Man) (0.0 - 0.1 x10 3/uL) 0.00 Microbiology: Date/Time Procedure - Status Source Growth [...] % (Auto) (14.0 - 32.0 %) 15.0 Lenoir % (Auto) (4.8 - 9.0 %) 7.9 Eos % (Auto) (0.3 - 3.7 %) 3.8 H Baso % (Auto) (0.0 - 2.0 %) 0.3 Neut # (Auto) (2.0 - 7.6 x10 3/uL) 6.34 Lymph # (Auto) (1.0 - 3.8 x10 3/uL) 1.31 [place] # (Auto) (0.1 - 0.8 x10 3/uL) 0.69 Eos # (Auto) (0.0 - 0.2 x10 3/uL) 0.33 H Baso # (Auto) (0.0 - 0.2 x10 3/uL) 0.03 Abs Immat Gran (auto) (0.00 - 0.03 x10 3/uL) 0.06 H Add Manual Diff NO Immature Gran % (0.0 - 2.0 %) 0.7 Nucleated RBC % (0 - 0 %) 0.0 Nucleated RBCs # (Man) (0.0 - 0.1 x10 3/uL) 0.00 Toxicology Random Vancomycin (mcg/mL) 16.7 Laboratory Tests: 09/11 09/11 09/11 09/11 09/11 1532 1445 1114 0541 0445Chemistry Sodium (134 - 147 mEq/L) 134 Potassium [...] MG/DL) 4.7 Magnesium (1.80 - 2.40 mg/dL) 1.90Hematology WBC (4.5 - 11.0 x10 3/uL) 7.9 [...] % (Auto) (14.0 - 32.0 %) 16.1 [place]oir % (Auto) (4.8 - 9.0 %) 9.1 H Eos % (Auto) (0.3 - 3.7 %) 5.6 H Baso % (Auto) (0.0 - 2.0 %) 0.5 Neut # (Auto) (2.0 - 7.6 x10 3/uL) 5.35 Lymph # (Auto) (1.0 - 3.8 x10 3/uL) 1.27 [place] # (Auto) (0.1 - 0.8 x10 3/uL) 0.72 Eos # (Auto) (0.0 - 0.2 x10 3/uL) 0.44 H Baso # (Auto) (0.0 - 0.2 x10 3/uL) 0.04 Abs Immat Gran (auto) (0.00 - 0.03 0.06 Hx10 3/uL) Add Manual Diff NO Immature Gran % (0.0 - 2.0 %) 0.8 Nucleated RBC % (0 - 0 %) 0.0 Nucleated RBCs # (Man) (0.0 - 0.1 0.00x10 3/uL)Toxicology Random Vancomycin (mcg/mL) 18.3 09/10 1851 Chemistry POC Glucose (70 - 110 MG/DL) 97 Laboratory Tests: 09/10 09/10 09/10 09/10 09/10 1715 1625 1430 1007 0545Chemistry Sodium (134 - 147 mEq/L) 135 Potassium [...] MG/DL) 4.6 Magnesium (1.80 - 2.40 mg/dL) 1.89Hematology WBC (4.5 - 11.0 x10 3/uL) 8.6 [...] % (Auto) (14.0 - 32.0 %) 15.5 [place] % (Auto) (4.8 - 9.0 %) 8.5 Eos % (Auto) (0.3 - 3.7 %) 5.5 H Baso % (Auto) (0.0 - 2.0 %) 0.4 Neut # (Auto) (2.0 - 7.6 x10 3/uL) 5.94 Lymph # (Auto) (1.0 - 3.8 x10 3/uL) 1.33 [place] # (Auto) (0.1 - 0.8 x10 3/uL) 0.73 Eos # (Auto) (0.0 - 0.2 x10 3/uL) 0.47 H Baso # (Auto) (0.0 - 0.2 x10 3/uL) 0.03 Abs Immat Gran (auto) (0.00 - 0.03 0.06 Hx10 3/uL) Add Manual Diff NO Immature Gran % (0.0 - 2.0 %) 0.7 Nucleated RBC % (0 - 0 %) 0.0 Nucleated RBCs # (Man) (0.0 - 0.1 0.00x10 3/uL)Toxicology Random Vancomycin (mcg/mL) 15.7 09/10 09/09 0541 1911 Chemistry POC Glucose (70 - 110 MG/DL) 154 H 102 Recent Impressions:ULTRASOUND - US RETROPERITONEAL COM 09/10 1311 Report Impression - Status: SIGNED Entered: 09/10/2022 1503 IMPRESSION: No acute findings. Impression By: Yared Mares M.D. Laboratory Tests: 09/09 09/09 09/09 09/09 09/09 [...] % (Auto) (14.0 - 32.0 %) 16.1 [place] % (Auto) (4.8 - 9.0 %) 9.2 H Eos % (Auto) (0.3 - 3.7 %) 4.7 H Baso % (Auto) (0.0 - 2.0 %) 0.4 Neut # (Auto) (2.0 - 7.6 x10 3/uL) 6.38 Lymph # (Auto) (1.0 - 3.8 x10 3/uL) 1.49 [place] # (Auto) (0.1 - 0.8 x10 3/uL) 0.85 H Eos # (Auto) (0.0 - 0.2 x10 3/uL) 0.43 H Baso # (Auto) (0.0 - 0.2 x10 3/uL) 0.04 Abs Immat Gran (auto) (0.00 - 0.03 x10 3/uL) 0.05 H Add Manual Diff NO Immature Gran % (0.0 - 2.0 %) 0.5 Nucleated RBC % (0 - 0 %) 0.0 Nucleated RBCs # (Man) (0.0 - 0.1 x10 3/uL) 0.00 Retic Count (auto) (0.3 - 2.3 [...] (Auto) (14.0 - 32.0 %) 13.7 L [place] % (Auto) (4.8 - 9.0 %) 7.2 Eos % (Auto) (0.3 - 3.7 %) 4.8 H Baso % (Auto) (0.0 - 2.0 %) 0.3 Neut # (Auto) (2.0 - 7.6 x10 3/uL) 6.64 Lymph # (Auto) (1.0 - 3.8 x10 3/uL) 1.24 [place] # (Auto) (0.1 - 0.8 x10 3/uL) 0.65 Eos # (Auto) (0.0 - 0.2 x10 3/uL) 0.43 H Baso # (Auto) (0.0 - 0.2 x10 3/uL) 0.03 Abs Immat Gran (auto) (0.00 - 0.03 x10 3/uL) 0.06 H Add Manual Diff NO Immature Gran % (0.0 - 2.0 %) 0.7 Nucleated RBC % (0 - 0 %) 0.0 Nucleated RBCs # (Man) (0.0 - 0.1 x10 3/uL) 0.00 Laboratory Tests: 09/07 09/07 09/07 09/07 09/07 1554 1137 1127 0618 0510 Chemistry Creatinine (0.6 - 1.3 mg/dL) 1.4 H POC Glucose (70 - 110 MG/DL) 112 H 51 L 42 L 135 H Hematology Hgb (12.5 - 16.9 [...] 1739 Occult Blood - COMP STOOL Recent Impressions:RADIOLOGY - XR ABDOMEN 1V (KUB) 09/04 1648 Report Impression - Status: SIGNED Entered: 09/04/2022 819 IMPRESSION: Benign appearance of the abdomen.Impression By: [email or web address] - Roger Parra M.D.ULTRASOUND - DUP VEIN UNI/LTD 09/05 1146 Report Impression - Status: SIGNED Entered: 09/05/2022 1333 IMPRESSION: 1. No evidence of deep vein thrombosis. 2. Complex heterogeneous hypoechoic fluid collection in the left calf region measuring 8.4 x 2.8 x 2.5 cm; there is no internal vascularity or peripheral hyperemia. May represent a hematoma.Impression By: TipABJames - Mert Ga M.D.RADIOLOGY - XR CHEST 1 V 09/05 1432 Report Impression - Status: SIGNED Entered: 09/05/2022 1515 IMPRESSION: Minimal bibasilar pulmonary opacitiesImpression By: Yared Marse M.D. Laboratory Tests: 09/04 09/04 09/04 09/04 09/04 [...] COLB STOOL 1.Diabetes mellitus type 2 uncontrolled complications.2. Status post right BKA3. Status post gangrene of the right foot.4. Sepsis5. Prostate abscess.6. AnemiaBlood sugar 244-251 mg/dL.H/H 8.11/17.Adjust insulin dose.PT and OT. at 1740 RPT #:[id number] OF REPORTPRProgress [id number]:39:00G.[id number] able for patient [id number]:40:36 [facility] 2022-09-22 14:43:00 [id number] [id number] [id number]6-95W01:43:00 [facility] ([facility])Infectious Dis. Progress NoteREPORT#:[id number] REPORT STATUS: SignedDATE:09/22/22 TIME: 1443 PATIENT: KARMA ROWLAND UNIT #: [id number]#: [id number] [address] AGE: 56 SEX: M ATTEND: Mj Vences [facility] AUTHOR: Anthony Curtis MD * ALL edits or amendments must be made on the electronic/computer document * SubjectiveChief complaint:Follow-up on MRSA bacteremia, prostatic abscess.HPI:Patient reports feeling better subjectively. Denies acute or new complaints. No major overnight events. Objective GeneralVS/I O:Vital SignsDate Temp Pulse Resp B/P B/P Mean Pulse Ox LtB154/30-09/22 97.3-99.0 81-90 14-20 122-179/64-88 83.1-118.4 96-98 Last Documented: Result Date Time Pulse Ox 96 09/22 1844 B/P 122/64 09/22 1844 B/P Mean 83.1 09/22 1844 O2 Delivery Room air 09/22 1844 [...] Output, Urine 2100 PATIENT WEIGHT: Weight (lb): 167Weight (oz): 12.35Weight (kg): 76.100 Physical ExamGeneral appearance: awake, no acute distressCardiovascular: normal heart sounds, regular rate rhythmRespiratory: clear to auscultation, aerating wellAbdomen: non-tender, soft, no distentionExtremities: edema (in left leg and thigh improved), moves all, right BKA Left foot wound +dressing in placeNeuro/DIRECTOR OPERATING ROOM: alert, oriented X 3 Considered stroke alert: noSkin: dry, intact, no rashPsychiatry: normal affect, normal mood Diagnosis, Assessment PlanFree Text A P: Assessment: Patient is a 56-year-old male with history of diabetes mellitus type 2, hypertension who was admitted with altered mental status and right-sided foot infection. According to him, he noticed a blister on his right foot around 3 days prior to presentation. His foot got progressively more swollen and erythema extended proximally to his lateral foot and ankle. CT abdomen and pelvis with contrast is concerning for possible prostate abscess. CT of lower extremity without contrast shows extensive soft tissue edema with mottled gas inthe subcutaneous and intramuscular compartments of the foot, compatible with gas-forming infection. Patient's blood cultures have come back positive for MRSA in 2 out of 2 sets. Patient has had persistent positive cultures for MRSA. He underwent a debridement of his foot on 08/19/2022 and cultures grew MRSA. Patient was started on vancomycin and clindamycin on 08/18/2022. His MRI showeda prostate abscess. 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 Pt underwent a transrectal aspiration and unroofing of prostate abscess 08/26/2022 and culturesgrew Citrobacter, Enterococcus, MRSA. 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 JIMENA done 09/02/2022, which was negative for vegetations. Patient was transferred to Rehab on 09/02/2022. *MRSA bacteremia, refractory, now cleared*Prostatic abscess, s/p unroofing 08/26/2022*ERIKA*Hyponatremia*Diabetic neuropathy*Diabetes mellitus type 2*Hypertension*Anemia -Afebrile; although with an isolated low-grade temperature spike of 37.2 C.-Leukocytosis of 12.0 on today's CBC noted; overall, downtrending.-No recent cultures. Last blood cultures from 08/28/22 negative x2. Plan: -On daptomycin and meropenem.-Finishing treatment 09/24/2022.-Would finish treatment as planned and then monitor off antimicrobials.-Continue supportive care. at 2010 RPT #:[id number] OF REPORTPRProgress [id number]:43:00G.[id number] able for patient [id number]:11:32 [facility] 2022-09-22 13:59:00 [id number]/tnnkFhhV QJ1CtMH2GwOAZF4kUkm9MRUvbop2954-10-04U64:59:00 [facility] ([facility])Pain Management Progress NoteREPORT#:[id number] REPORT STATUS: SignedDATE:09/22/22 TIME: 135 PATIENT: KARMA ROWLAND UNIT #: [id number]#: [id number] [address] AGE: 56 SEX: M ATTEND: Mj Vences [facility] AUTHOR: Ben Klein * ALL edits or amendments must be made on the electronic/computer document * Ben Klein 09/22/22 1359:SubjectiveChief complaint:Patient seen and examined. Chart/MAR reviewed. Patient feels well this morning. Events noted. Pain control improving. No aggravating neuropathy symptoms or muscle spasms. Patient being seen for Acute postoperative pain, right foot and anklegangrene, requiring BKA, Neuropathy, Constipation Patient is still requiring medications to help with managing currentproblems. No fever/chills, chest pain, orthopnea, nausea/vomiting, pruritus, orhallucinations.14 point ROS undertaken unremarkable except as noted Objective GeneralVS/I O:Vital SignsDate Temp Pulse Resp B/P B/P Mean Pulse Ox NnV220/30-05/ 36.3-36.7 80-90 14-20 155-179/76-88 102.5-118.4 97-98 Last Documented: Result Date Time Pulse Ox 97 09/22 0708 B/P 158/80 05 0708 B/P Mean 106.1 09/22 0708 O2 Delivery Room air 09/22 0708 Temp 36.6 09/22 0708 Pulse 89 / 0708 Resp 18 09/22 0708 O2 Flow Rate 2 09/08 1322 24 hour I O ending at 0700: 09/22 0700 09/21 1900 Intake Total Output Total 2100 Balance -2100 Number 1 Bowel Movements Number 0 Incontinent Voids Number Voids 0 Output, Urine 2100 PATIENT WEIGHT: Weight (lb): 167Weight (oz): 12.35Weight (kg): 76.100 Medications:Active Meds + DC'd Last 24 HrsAmlodipine Besylate (NORVASC) 10 MG DAILY PO Prednisone (predniSONE) 50 MG C BK PO Hydralazine HCl (APRESOLINE) 100 MG Q8HR PO Insulin Glargine (Semglee) 19 UNIT BEDTIME SUBQ Daptomycin (CUBICIN 500MG) 500 MG Q24H IV (DC) Sodium Chloride (SODIUM CHLORIDE 0.9%) 50 MLInsulin Human Lispro (HUMALOG) 10 UNIT AC SUBQ Meropenem (MEROPENEM) 500 MG Q8H IV (DC) Sterile Water (WATER FOR INJECTION) 10 MLCarvedilol (COREG) 25 MG C BK DIN PO Gabapentin (NEURONTIN) 100 MG Q8HR PO Oxycodone/Acetaminophen (PERCOCET 5/325MG TAB) 2 TAB Q4H PRN PRN PO Folic Acid (FOLIC ACID) 2 MG DAILY PO Multivitamins (TAB-A-MOHAN) 1 TAB DAILY PO Furosemide (LASIX 20MG INJ) 20 MG BLOOD-DOSE BETWEEN IV (CKD) Sodium Chloride (SODIUM CHLORIDE) 10 ML ASDIR IV Pantoprazole Sodium (PROTONIX) 40 MG Q12HR IV Polyethylene Glycol (MIRALAX) 17 GM DAILY PO Sennosides (Senna Lax 8.6 MG TABLET) 8.6 MG DAILY PO Sodium Chloride (SODIUM CHLORIDE) 10 ML ASDIR PRN IV Amitriptyline HCl (ELAVIL) 25 MG BEDTIME PO Zinc Oxide (ZINC OXIDE 30 GM OINTMENT) 1 APPLIC DAILY TOPICAL Sterile Water (WATER FOR IRRIGATION) DRESSING CHANGE ASDIR PRN IRR Insulin Human Lispro (HUMALOG) 0 AC HS SUBQ Dextrose/Water (DEXTROSE 10% IN WATER) 125 ML ASDIR PRN IV (CKD) Dextrose/Water (DEXTROSE 10% IN WATER) 250 ML ASDIR PRN IV (CKD) Glucagon (GLUCAGON) 1 MG ASDIR PRN IM Lidocaine (LIDODERM) 1 PATCH DAILY TOPICAL Acetaminophen (TYLENOL) 650 MG Q6H PRN PRN PO Bisacodyl (DULCOLAX) 10 MG DAILY PRN PRN RECTAL Docusate Sodium (COLACE) 100 MG Q12H PRN PRN PO Hydralazine HCl (APRESOLINE) 10 MG Q6H PRN PRN IV Ondansetron HCl (ZOFRAN) 4 MG Q6H PRN PRN IV Physical ExamGeneral appearance: alert, awake, oriented, no acute distressHead/eyes: atraumatic, EOMI, normocephalic, normal conjunctiva/sclera, PERRLAENT: normal pharynx, moist mucosal membranesNeck: full range of motion, no lymphadenopathy, supple/no meningismusCardiovascular: regular rate rhythmRespiratory: aerating wellAbdomen: soft, non-tender, no distention, active bowel sounds in all quarants. 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: 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, no sensory deficits, CNII-XII grossly intact Considered stroke alert: noSkin: dry, intact, no rashLymphatics: axilla normalPsychiatry: normal affect, normal judgment/insight ResultsFindings/data:Laboratory Tests: 09/22 09/22 09/22 09/22 1057 0617 0436 0436Chemistry Sodium (134 - 147 mEq/L) 138 Potassium [...] 1.80 L Prealbumin (16.0 - 40.0 mg/dL) 16.7Hematology WBC (4.5 - 11.0 x10 3/uL) 12.0 [...] (Auto) (14.0 - 32.0 %) 11.3 L [place] % (Auto) (4.8 - 9.0 %) 5.7 Eos % (Auto) (0.3 - 3.7 %) 0.2 L Baso % (Auto) (0.0 - 2.0 %) 0.0 Neut # (Auto) (2.0 - 7.6 x10 3/uL) 9.79 H Lymph # (Auto) (1.0 - 3.8 x10 3/uL) 1.35 [place] # (Auto) (0.1 - 0.8 x10 3/uL) 0.68 Eos # (Auto) (0.0 - 0.2 x10 3/uL) 0.02 Baso # (Auto) (0.0 - 0.2 x10 3/uL) 0.00 Abs Immat Gran (auto) (0.00 - 0.03 0.13 Hx10 3/uL) Add Manual Diff NO Immature Gran % (0.0 - 2.0 %) 1.1 Nucleated RBC % (0 - 0 %) 0.0 Nucleated RBCs # (Man) (0.0 - 0.1 x10 3/uL) 0.00 09/21 09/21 09/21 2047 1552 1437 Chemistry POC Glucose (70 - 110 MG/DL) 251 H 170 H 167 H Diagnosis, Assessment PlanFree text A P:A/P:Patient is a 56 year old male who presents with: Past Medical History: Prostate abscess, right foot foot and ankle gangrene, diabetes, hypertension, hyperlipidemiaPast Surgical History: TURP, right BKAFamily History: NoncontributorySocial History: Denies tobacco, alcohol, or drug useAllergies: NKDA Recent prostate abscess-Status post TURP with unroofing of abscess-IV antibiotics with vancomycin until 09-24-2022 Acute postoperative pain, right foot and ankle gangrene, requiring BKA-Patient is at risk for further amputations or loss of limb due to comorbid conditions-Status post right BKA 08/28/2022-DC Sheldon 10/325 1 tablet p.o. every 4 hours as needed pain scale 4 10-DC Dilaudid 0.5 mg IV daily as needed pain scale 7 10, second line therapy (09/13)-Tylenol 650 mg p.o. every 6 hours as needed pain scale 1 3-Percocet 10/325mg every 4 hours as needed, pain scale 4-10 (09/10)-Lidoderm patch to left ankle daily-IV antibiotics with vancomycin until 09-24-2022-Local wound care-manageable Diabetic peripheral neuropathy-amitriptyline 25mg PO QHS-Gabapentin 100mg every 8 hours (09/10)-manageable Hypertension-We will monitor hypertension and tachycardia due to pain, and hypotension as well as bradycardia secondary over sedation with narcotics-Hydralazine as needed Elevated LFTs-08/20/22-AST 51, ALT 22-09/03/2022-AST 15, ALT 7-Patient will require close monitoring since he is using narcotics with Tylenol Impaired functional mobility, balance, gait, and endurance-PT/OT Antalgic/Impaired gait-PT/OT-Improve strength, endurance, self-care, gait, balance, ADLs-Fall precautions per unit protocol-Pain medications as outlined above Constipation-We will monitor while utilizing opioid narcotic medications.-Adequate fluid intake also discussed.-Colace 100 mg p.o. twice daily as needed-Dulcolax 10 mg rectally daily as needed-Senna lax 8.6mg daily-Miralax 17gm daily-manageable Disposition: percocet 10/325mg q6h prn pain , gabapentin 100mg q8h sent to [facility]/pharmacy #[id number] [facility] [place] [address] [address] Patient has failed conservative medical therapy.Patient will require monitoring while utilize narcotic medications for any adverse effects, and will adjust as neededPlan of care discussed with patient and nurseAll diagnostics of last 24 hours been reviewed. Risks versus benefits of opioid medications were reviewed to include, but not limited to respiratory depression, accidental overdose, altered mental status, sudden , constipation which could result in bowel obstruction, seizures, withdrawal, dependency addiction, risk for falls. Case discussed with Dr Ng whom agrees. Thank you for the consultation. [place] [employer] OFFICER:-database searched, no information found Kingsley Ng 10/09/22 0636:Attestations Physician AttestationAgree w/findings plan:The patient was seen and examined by Ben Klein. I personally developed the care plan, which was continued by the mid-level provider. I was immediately available. at 1400 at 0642 RPT #:[id number] OF REPORTPRProgress [id number] able for patient [id number]:00:41 HCACL 2022-09-22 12:46:00 [id number] [id number]:46:00 [facility] ([facility])Gastroenterology Progress NoteREPORT#:[id number] REPORT STATUS: SignedDATE:09/22/22 TIME: 1246 PATIENT: KARMA ROWLAND UNIT #: [id number]#: [id number] [address] [birth year] AGE: 56 SEX: M ATTEND: Mj Vences MDADM AUTHOR: Kassie Avitia MD * ALL edits or amendments must be made on the electronic/computer document * SubjectiveHPI:Patient is a 56-year-old male with history of diabetes mellitus type 2 and hypertension who was initially admitted for altered mental status and right-sided foot infection. 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 The patient is anemic with current Hgb 7.1. He has received a total of 3 units pRBCs during this hospitalization. KUB on 09/04 was negative for acute GI process. The patient denies overt GIB, dark tarry stools, nausea, abdominal pain, or vomiting. He has never had EGD orcolonoscopy. 09/06: No complaints today. Hemoglobin stable. No overt GI bleed. Plan for colonoscopy and endoscopy on Thursday 09/07: No complaints today. No overt GI bleed. Planning for colonoscopy and endoscopy tomorrow 09/08: EGD mild gastritis. colonoscopy rectal polyp s/p snare. No other abnormalities 09/09: doing well. Seen at the gym. No bleeding. 09/10: Doing well. No bleeding. tolerating diet. Movig bowels 09/11: doing well. States his leg swelling is better. Tolerating diet. having normal BM 09/12: dooing well. doing work-out at the gym. Tolerating diet. Normal BMs. Stable H/-Sitting up in wheelchair, family at bedside. Denies n/v/abd pain/GIB 09/15: Doing well. H/H stable. No melena or BRBPR. No nausea or vomiting. Appetite is well 09/16: doing well. no complaints. eating well 09/17: stable H/H. No complaints. 09/18/22: H/H fluctuating but overall stable 09/19: H/H stable up to 8 today. No complaints. 09/20: Hemoglobin relatively stable. No complaint 09/21: no complaints. feeling well 09/22/2022: doing well. looking forward to be discharged Objective Physical ExamHEENT: atraumatic, normocephalicNeck: full range of motion, non-tenderRespiratory: symmetric expansion, no distressAbdomen: non-tender, normal bowel sounds, soft, no distention, no guardingExtremities: right BKA Considered stroke alert: noSkin: dry Diagnosis, Assessment PlanFree Text A P:1. Positive FOBT-and anemia: The patient denies overt GIB, dark tarry stools, nausea, abdominal pain, or vomiting. He is not on anticoagulation therapy.-Continue PPI. The patient has never had EGD or colonoscopy prior to this admissions/p EGD and colonoscopy. EGD showed mild gastritis. Colonoscopy showed rectal polyp that was resected by snare. no evidence of bleeding. Pathology of polyp came back as tubular adenoma. recommend repeating colonoscopy in 5 years Anemia likely secondary to chronic kidney disease and mild oozing from his stump.Can consider video capsule endoscopy as outpt if evidence of dropping H/HH/H remains stable Consider reducing frequency of H/H checkWill follow along Consultants: cardiology, endocrinology, hospitalist, infectious disease, podiatry at 1247 RPT #:[id number] OF REPORTPRProgress [id number]:46:00G.[id number] able for patient [id number]:47:53 [facility] 2022-09-22 10:45:00 [id number] LM[id number]:45:00 [facility] ([facility])Cardiology Progress NoteREPORT#:[id number] REPORT STATUS: SignedDATE:09/22/22 TIME: 1045 PATIENT: KARMA ROWLAND UNIT #: [id number]#: [id number] [address] [birth year] AGE: 56 SEX: M ATTEND: Mj Vences [facility] AUTHOR: Rohit Benitez RESEARCH MANUFACTURING OPERATOR * ALL edits or amendments must be made on the electronic/computer document * Rohit Benitez 09/22/22 1045:SubjectiveChief complaint:weakness Free Text Subj NotesFree Text Subj Notes:Patient seen and evaluated in the gym, working with therapy. No new cardiac complaints. Objective GeneralVS/I O:24 hour I O ending at 0700: 09/22 [...] 14 155/76 102.5 97 Room air 09/21 210 86 169/86 114.0 98 Room air 09/21 2105 87 171/86 114.5 98 Room air 09/215 98.1 90 20 179/88 118.4 98 Room air 09/21 1554 97.5 80 18 169/83 111.6 97 PATIENT WEIGHT: Weight (lb): 167Weight (oz): 12.35Weight (kg): 76.100 Medications:Active Meds + DC'd Last 24 HrsAmlodipine Besylate (NORVASC) 10 MG DAILY PO Prednisone (predniSONE) 50 MG C BK PO Hydralazine HCl (APRESOLINE) 100 MG Q8HR PO Insulin Glargine (Semglee) 19 UNIT BEDTIME SUBQ Daptomycin (CUBICIN 500MG) 500 MG Q24H IV (DC) Sodium Chloride (SODIUM CHLORIDE 0.9%) 50 MLInsulin Human Lispro (HUMALOG) 10 UNIT AC SUBQ Meropenem (MEROPENEM) 500 MG Q8H IV Sterile Water (WATER FOR INJECTION) 10 MLCarvedilol (COREG) 25 MG C BK DIN PO Gabapentin (NEURONTIN) 100 MG Q8HR PO Oxycodone/Acetaminophen (PERCOCET 5/325MG TAB) 2 TAB Q4H PRN PRN PO Folic Acid (FOLIC ACID) 2 MG DAILY PO Multivitamins (TAB-A-MOAHN) 1 TAB DAILY PO Furosemide (LASIX 20MG INJ) 20 MG BLOOD-DOSE BETWEEN IV (CKD) Sodium Chloride (SODIUM CHLORIDE) 10 ML ASDIR IV Pantoprazole Sodium (PROTONIX) 40 MG Q12HR IV Polyethylene Glycol (MIRALAX) 17 GM DAILY PO Sennosides (Senna Lax 8.6 MG TABLET) 8.6 MG DAILY PO Sodium Chloride (SODIUM CHLORIDE) 10 ML ASDIR PRN IV Amitriptyline HCl (ELAVIL) 25 MG BEDTIME PO Zinc Oxide (ZINC OXIDE 30 GM OINTMENT) 1 APPLIC DAILY TOPICAL Sterile Water (WATER FOR IRRIGATION) DRESSING CHANGE ASDIR PRN IRR Insulin Human Lispro (HUMALOG) 0 AC HS SUBQ Dextrose/Water (DEXTROSE 10% IN WATER) 125 ML ASDIR PRN IV (CKD) Dextrose/Water (DEXTROSE 10% IN WATER) 250 ML ASDIR PRN IV (CKD) Glucagon (GLUCAGON) 1 MG ASDIR PRN IM Lidocaine (LIDODERM) 1 PATCH DAILY TOPICAL Acetaminophen (TYLENOL) 650 MG Q6H PRN PRN PO Bisacodyl (DULCOLAX) 10 MG DAILY PRN PRN RECTAL Docusate Sodium (COLACE) 100 MG Q12H PRN PRN PO Hydralazine HCl (APRESOLINE) 10 MG Q6H PRN PRN IV Ondansetron HCl (ZOFRAN) 4 MG Q6H PRN PRN IV Physical ExamGeneral appearance: alert, awake, orientedNeck: no bruit/NL carotids, no JVDCardiovascular: CV assessment: regular rate and rhythm, no ectopy, no gallopRespiratory: clear to auscultation, no distressAbdomen: soft, non-tenderGenitourinary: urinary catheterLower extremity: LE assessment: edema, normal temperatureNeuro/DIRECTOR OPERATING ROOM: alert, oriented X 3 Considered stroke alert: noWound/incision: Location:right bkaPsychiatry: normal affect, normal judgment/insight, normal mood ResultsFindings/Data:Laboratory Tests 09/22 09/22 09/22 09/21 0617 0436 [...] (Auto) (14.0 - 32.0 %) 11.3 L [place] % (Auto) (4.8 - 9.0 %) 5.7 Eos % (Auto) (0.3 - 3.7 %) 0.2 L Baso % (Auto) (0.0 - 2.0 %) 0.0 Neut # (Auto) (2.0 - 7.6 x10 3/uL) 9.79 H Lymph # (Auto) (1.0 - 3.8 x10 3/uL) 1.35 [place] # (Auto) (0.1 - 0.8 x10 3/uL) 0.68 Eos # (Auto) (0.0 - 0.2 x10 3/uL) 0.02 Baso # (Auto) (0.0 - 0.2 x10 3/uL) 0.00 Abs Immat Gran (auto) (0.00 - 0.03 x10 3/uL) 0.13 H Add Manual Diff NO Immature Gran % (0.0 - 2.0 %) 1.1 Nucleated RBC % (0 - 0 %) 0.0 Nucleated RBCs # (Man) (0.0 - 0.1 x10 3/uL) 0.00 Laboratory Tests 09/22 09/22 0436 0436 Chemistry Magnesium (1.80 - 2.40 mg/dL) 2.13 B-Natriuretic Peptide (0 - 100 PG/ML) 251.0 H Diagnosis, Assessment PlanConsultants: cardiology, endocrinology, hospitalist, infectious disease, podiatry Free Text DxA P NotesFree Text DxA P Notes:Impression: 1. Debility2. Infected right foot status post BKA3. Bacteremia4. Diabetes5. Hypertension 6. Anemia7. Acute Diastolic CHF8. ERIKA 07/2022: Echocardiogram with normal LVEF, grade 1 diastolic dysfunction, mildly dilated LA, and no significant valvular abnormalities Recommendation: Patient initially presented with DKA and sepsis. Diagnosed with right foot infection, underwent I D, now status post BKA. Patient had persistent bacteremia with MRSA, underwent JIMENA with negative findings of endocarditis. Patient now transferred to rehab for physical therapy. Known cardiac history ofhypertension and hyperlipidemia. Vital signs stable. Echocardiogram with normal LVEF, grade 1 diastolic dysfunction, mildly dilated LA, and no significant valvular abnormalities. Continue to monitor blood pressure trend. Continue wound care and IV antibiotic therapy. Continue PT/OT. Supportive care. 09/04: Patient complaining of shortness of breath, abdominal distention and lowerextremity edema. Renal function and electrolytes stable. Will give one-time dose of IV Lasix 40 mg. Blood pressure stable. Pending abdominal x-ray. Monitor intake and output. Check BMP in the morning. Supportive care. Plan ofcare discussed with patient, RN and Dr. Parham. 09/05: Patient responded well to IV Lasix, good urine output and improvement in shortness of breath. Chest x-ray ordered. Currently on Lasix 20 mg p.o. daily. Continue monitor renal function and electrolytes. Pending lower extremity Doppler for lower extremity edema. Continue PT/OT. Supportive care. Plan of care discussed with patient, RN and Dr. Parham. 09/08: Blood pressure has been elevated, started on Coreg 3.125 mg twice daily. Continue monitor blood pressure trend and adjust medication as needed. Still having left lower extremity edema, venous Doppler negative for DVT. continue gentle diuresis with Lasix 20 mg p.o. daily. Recommend Joan wrap. Patient remains anemic, plan for EGD/colonoscopy today. Supportive care. Plan of care discussed with patient, family, RN and Dr. Parham. 09/09: Patient doing well status post EGD/colonoscopy, negative findings for GI bleed. Blood pressure improving, increased on Coreg to 12.5 mg twice daily. Elevated creatinine noted, nephrology following. No new cardiac complaint. Continue wound care. Continue PT/OT. Supportive care. Plan of care discussed with patient, RN and Dr. Parham. 09/10: Blood pressure remained stable on current regimen of Coreg. Patient continue to have left lower extremity edema. Currently on Lasix 20 mg daily. Creatinine 1.9 today, continue to monitor. Patient's albumin level was 1.3, it is possible that patient's lower extremity edema could be related to hypoalbuminemia leading to third spacing. Continue PT/OT. Supportive care. Plan of care discussed with patient, RN and Dr. Parham. 09/11: Patient doing well from cardiac standpoint. Blood pressure well controlled. Improvement in lower extremity edema with elevating leg while in bed. Creatinine 2.0 today. Denies shortness of breath. Will hold diuretic for now and monitor renal function. Supportive care. Plan of care discussed with patient, RN and Dr. Parham. 09/12: Creatinine remains elevated at 2.4 today, antibiotic regimen also being adjusted. Patient still with lower extremity edema and rales on physical examination. Will check chest x-ray and limited echocardiogram for further evaluation. Check BNP. Continue hold diuretic for now. Supportive care. Planof care discussed with patient, RN and Dr. Parham. 09/15: Repeat echocardiogram showed LVEF of 55 to 60%, no regional wall motion abnormalities, left ventricular diastolic function parameters are indeterminate,mildly dilated LA, and no pericardial effusion. BNP elevated 297. Continue to hold diuretic due to Elevated creatinine, nephrology following and may consider renal biopsy. Continue to monitor fluid volume status. Overall improvement in lower extremity with Joan wrap. Continue physical therapy. Supportive care. Plan of care discussed with patient, RN and Dr. Parham. 09/16: Blood pressure slightly elevated, started on hydralazine 25 mg every 8 hours. Continue carvedilol monitor blood pressure trend. Cr. 2.7 today, continue monitor. Tolerating physical therapy. Euvolemic by physical examination. Supportive care. Plan of care discussed with patient, RN and Dr. Parham. 09/17: Blood pressure remains elevated, likely related to steroid therapy. Hydralazine increased to 50 mg 3 times daily. Nephrology managing diuretic therapy. Continue monitor renal function and electrolytes. Improvement in lower extremity swelling. Patient denies chest pain or shortness of breath. Tolerating PT/OT. Supportive care. Plan of care discussed with patient, RN andDr. Parham. 09/18: Blood pressure remains elevated due to steroid therapy. Continue monitor blood pressure trend, hydralazine increased to 75 mg 3 times daily. Responding to diuretic regimen with Lasix, good urine output. Creatinine improving, 2.2 today. Continue to monitor fluid volume status. Continue physical therapy. Supportive care. Plan of care discussed with patient, RN and Dr. Parham. 09/19: Blood pressure improving, continue hydralazine and carvedilol. Overall improvement in fluid volume status. No new cardiac complaint. Continue steroidtaper per nephrology. Progressing in therapy. Discharge planning. Supportive care. Plan of care discussed with patient, RN and Dr. Parham. 09/20: Patient doing much better since started on steroid therapy, creatinine is slowly improving, blood pressure overall improving, nephrology is adjusting antihypertensive medication regimen, diuretic regimen per nephrology, overall stable cardiac status, discussed with patient and . 09/21: Creatinine now below 2, at 1.9, blood pressure better controlled with carvedilol and hydralazine, fluid status is improving, continue diuretic regimenper nephrology, supportive care, will follow. 09/22: Patient remains from cardiac standpoint. Blood pressure elevated, startedon amlodipine 10 mg daily. Continue steroid therapy and diuretic per nephrology. Creatinine 1.8 today. Tolerating physical therapy. Discharge planning. Supportive care. Plan of care discussed with patient, RN and Dr. Parham. Napoleon Parham 09/27/22 1304:Diagnosis, Assessment PlanAdditional comments:Agree with above assessment and plan as documented by nurse practitioner, continue current management, will follow. at 1848 at 1655 RPT #:[id number] OF REPORTPRProgress [id number]:45:00G.[id number] able for patient [id number]:48:21 [facility] 2022-09-22 09:57:00 [id number] [id number]+2hp3dDQ27GNBL8412-01-52V52:57:00 [facility]Re[facility] Progress NoteREPORT#:[id number] REPORT STATUS: SignedDATE:09/22/22 TIME: 956 PATIENT: KARMA ROWLAND UNIT #: [id number]#: [id number] [address] [birth year] AGE: 56 SEX: M [facility]END[facility]ences [facility] AUTHOR: Mj Vences MD * ALL edits or amendments must be made on the electronic/computer document * SubjectiveChief complaint:Rehab follow-upFall last night without injuryStates edema improvingEating 75-100% at bedside+ BMDenies DICKENS/N/V/D/CP14 systems reviewed and neg. except that above.History of present illness:56 yo HAM with long h/o DM, and HTN who was admitted for fever, flulike symptomsand altered mental status on 08/18. He was doing well until about 3 days prior toadmission when he noted blister to have formed on the dorsum of his foot. His foot started progressively getting more swollen and the blisters started enlarging and extending to his lateral foot and ankle. He started feeling weak and nauseated. He was noted to have altered mentation and was brought to our ER.He was noted to be in DKA with Blood sugars greater than 600. He was seen by podiatry and surgery for BLE wounds and infection. He was treated in ICU for sepsis and DKA. He underwent incisional and excisional debridement of right footand right ankle by podiatry. Patient also found to have prostate abscess underwent transrectal ultrasound aspiration of abscess and transurethral resection of prostate and unroofing of abscess by urology Dr. Du. Endocrinology treated the DKA and blood sugars much improved. Patient's right foot was not salvageable and patient underwent right BKA by Dr. LEROY on 08/28. Patient blood cultures showed MRSA. Patient continued on antibiotics as per ID. MRI of the pelvis and foot completed. Patient required multiple PRBCs for anemia. Patient was found to have a possible small hematoma of the left calf onultrasound. He complains of pain and swelling of the left ankle. Patient hemodynamically stable and plans are to be transferred to stepdown unit. He is on heparin subcu for VTE. After surgery he is now being mobilized by PT and OT.He is wearing a maxine-tech orthotic for right knee/BKA protection. Prior to admission the patient was independent living in a single-story house with his spouse with a few steps up to front and back door. 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 is at bedside. Patient denies nausea, vomiting, fever, chills, chest pain, shortness of breath with dizziness. He is requiring IV Dilaudid for pain control. Mental status back to baseline. Pt is progressing slowly with therapy d/t weakness and pain, self care deficit, decreased endurance and balance, and decreased functional mobility. Pt requiring acute inpt rehab for multidisciplinary team of nursing, therapy, and physicians. Pt iswilling and able to partici- kathleen in 3 hr/day inpt rehab to d/c home safely. Pt's prior level of function was independent. Objective GeneralVS:Vital Signs: Date Time Temp Pulse Resp B/P B/P Pulse O2 O2 Flow FiO2 Mean Ox Delivery Rate 09/22 0708 97.9 89 18 158/80 106.1 97 Room air 09/22 0036 97.3 81 14 155/76 102.5 97 Room air 09/21 2108 86 169/86 114.0 98 Room air 09/21 2106 87 171/86 114.5 98 Room air 09/21 2045 98.1 90 20 179/88 118.4 98 Room air 09/21 1554 97.5 80 18 169/83 111.6 97 PATIENT WEIGHT: Weight (lb): 167Weight (oz): 12.35Weight (kg): 76.100 Medications:Active Meds + DC'd Last 24 HrsAmlodipine Besylate (NORVASC) 10 MG DAILY PO Prednisone (predniSONE) 50 MG C BK PO Hydralazine HCl (APRESOLINE) 100 MG Q8HR PO Insulin Glargine (Semglee) 19 UNIT BEDTIME SUBQ Daptomycin (CUBICIN 500MG) 500 MG Q24H IV (DC) Sodium Chloride (SODIUM CHLORIDE 0.9%) 50 MLInsulin Human Lispro (HUMALOG) 10 UNIT AC SUBQ Meropenem (MEROPENEM) 500 MG Q8H IV Sterile Water (WATER FOR INJECTION) 10 MLCarvedilol (COREG) 25 MG C BK DIN PO Gabapentin (NEURONTIN) 100 MG Q8HR PO Oxycodone/Acetaminophen (PERCOCET 5/325MG TAB) 2 TAB Q4H PRN PRN PO Folic Acid (FOLIC ACID) 2 MG DAILY PO Multivitamins (TAB-A-MOHAN) 1 TAB DAILY PO Furosemide (LASIX 20MG INJ) 20 MG BLOOD-DOSE BETWEEN IV (CKD) Sodium Chloride (SODIUM CHLORIDE) 10 ML ASDIR IV Pantoprazole Sodium (PROTONIX) 40 MG Q12HR IV Polyethylene Glycol (MIRALAX) 17 GM DAILY PO Sennosides (Senna Lax 8.6 MG TABLET) 8.6 MG DAILY PO Sodium Chloride (SODIUM CHLORIDE) 10 ML ASDIR PRN IV Amitriptyline HCl (ELAVIL) 25 MG BEDTIME PO Zinc Oxide (ZINC OXIDE 30 GM OINTMENT) 1 APPLIC DAILY TOPICAL Sterile Water (WATER FOR IRRIGATION) DRESSING CHANGE ASDIR PRN IRR Insulin Human Lispro (HUMALOG) 0 AC HS SUBQ Dextrose/Water (DEXTROSE 10% IN WATER) 125 ML ASDIR PRN IV (CKD) Dextrose/Water (DEXTROSE 10% IN WATER) 250 ML ASDIR PRN IV (CKD) Glucagon (GLUCAGON) 1 MG ASDIR PRN IM Lidocaine (LIDODERM) 1 PATCH DAILY TOPICAL Acetaminophen (TYLENOL) 650 MG Q6H PRN PRN PO Bisacodyl (DULCOLAX) 10 MG DAILY PRN PRN RECTAL Docusate Sodium (COLACE) 100 MG Q12H PRN PRN PO Hydralazine HCl (APRESOLINE) 10 MG Q6H PRN PRN IV Ondansetron HCl (ZOFRAN) 4 MG Q6H PRN PRN IV Physical ExamGeneral appearance: alert, awake, no acute distressPsych: alert, normal affect, oriented x 3HEENT: anicteric, sclera clearNeck: supple, no JVDCardiovascular: S1/S2, no murmurRespiratory: aerating well, clear bilaterallyAbdomen: bowel sounds present, non-distended, soft, non-tenderSkin: no rash, R BKA HEALING. L ankle/foot wrapped with kerlixMusculoskeletal - general: Musculoskeletal - general: swelling (LLE, calve NT, homans neg), BUE 5/5, LLE4/5, R hip 3-Neuro/DIRECTOR OPERATING ROOM: alert, oriented X 3, CNII-XII intact ResultsFindings/Data:Laboratory Tests: 09/22 09/22 09/22 09/21 09/21 0617 0436 0436 2047 1552Chemistry Sodium (134 - 147 mEq/L) 138 Potassium [...] 1.80 L Prealbumin (16.0 - 40.0 mg/dL) 16.7Hematology WBC (4.5 - 11.0 x10 3/uL) 12.0 [...] (Auto) (14.0 - 32.0 %) 11.3 L [place] % (Auto) (4.8 - 9.0 %) 5.7 Eos % (Auto) (0.3 - 3.7 %) 0.2 L Baso % (Auto) (0.0 - 2.0 %) 0.0 Neut # (Auto) (2.0 - 7.6 x10 3/uL) 9.79 H Lymph # (Auto) (1.0 - 3.8 x10 3/uL) 1.35 [place] # (Auto) (0.1 - 0.8 x10 3/uL) 0.68 Eos # (Auto) (0.0 - 0.2 x10 3/uL) 0.02 Baso # (Auto) (0.0 - 0.2 x10 3/uL) 0.00 Abs Immat Gran (auto) (0.00 - 0.03 0.13 Hx10 3/uL) Add Manual Diff NO Immature Gran % (0.0 - 2.0 %) 1.1 Nucleated RBC % (0 - 0 %) 0.0 Nucleated RBCs # (Man) (0.0 - 0.1 0.00x10 3/uL) 09/21 09/21 1437 1107 Chemistry POC Glucose (70 - 110 MG/DL) 167 H 162 H Diagnosis, Assessment PlanFree Text A P:Assessment:Severe Gas gangrene right foot and right ankle associated with osteomyelitis andnecrotizing fasciitisS/p surgical debridement and washout08/28: S/p right SATHYAA-Dr. Greenberggnificant impairment in self-care, ADLs and functional mobilityImpaired mobility and gaitAcute postoperative pain right BKADiabetic polyneuropathyDKA, DM 2, poorly controlled, A1c greater than 14PADMRSA bacteremia/sepsis-treated on acuteAKISevere hyponatremia-resolvedHTNAcute on chronic anemia requiring multiple transfusions, possible GI bleedLeft calf hematomaEdema and clinical arthritis left ankleEarly decubitus to left heel/DTI dorsal left midfootProstatic abscess 08/26: S/p transrectal ultrasound aspiration of abscess and transurethral resection of prostate and unroofing of abscess09/12: Echo: EF 55-59%, grade 1 diastolic dysfunction09/02: JIMENA negative for vegetationMRSA OF NARES09/08:s/p EGD and colonoscopy. EGD showed mild gastritis. Colonoscopy showed rectal polyp that was resected by snare (tubular adenoma)-repeat colonoscopy in 5 years Plan:-PLOF: Independent with transfers and gait-Amputee rehab program-Continue PT and OT-15/12 rehabilitation nursing care.-Case management for safe discharge planning.-Decubitus prevention-Early decubitus to left heel/DTI dorsal left midfoot-zinc oxide to the foot, foam, offloading, podiatry managing-DVT prophylaxis-SCD left leg-Strict fall and safety precautions-Work on bed mobility, transfer training, ADLs, pre-gait and gait exercises-Increase endurance and strength-Monitor pain with therapies-OOB to chair-Monitor p.o. intake and nutrition, albumin 1.3, 1.8, prealbumin less than 5, 16.7 dietary consultation, protein supplements to promote cchxrla-Tuvzwxwo-Y4g 14, tight glycemia control- endocrine on board, insulin adjustments-Endocrinology, ID, podiatry, cardiology, IM consulted-Pain management adjusting pain medications-Anemia, patient required multiple units of PRBCs on acute, FOBT positive-IV Protonix-consult GI-serial H H-no evidence of gross bleeding-discussed with Dr. TrinidadBbnjzmnu-Jrfiujvvdlbx-gvovqjmas bydqnpkz-JOG-slbgbc-CW Senokot and MiraLAX, DSP-MRSA OF NARES on Bactroban protocol-LLE edema-venous Doppler with complex heterogeneous hypoechoic fluid collectionin the left calf region measuring 8.4, 2.8, 2.5 cm suggestive of hematoma. On low-dose Lasix. Joan wrap LLE-LE edema could be related to hypoalbuminemia leading to third spacing-edema improving-Generalized edema-some shortness of breath and abdominal distention-cardiology gave a dose of IV Lasix-monitor urine output, daily weights-SOB resolved-09/05-venous Doppler of LLE-negative for DVT-Joan wrap dressing and jioqxicwd-Omseer-fdekssjgij 8.3, 7.7, 8.2, 7.6, 8, 7.7 transfused 2 units of PRBC on 09/05-09/08: s/p EGD and colonoscopy. EGD showed mild gastritis. Colonoscopy showed rectal polyp that was resected by snare. Anemia likely secondary to chronic kidney disease. Consult renal.-Pathology of polyp came back as tubular adenoma. recommend repeating colonoscopy in 5 years as per GI-Consider video capsule endoscopy as outpt if evidence of dropping H/H-Renal ultrasound negative-09/22/2022 laboratory this morning showed sodium 138, potassium 5.1, CO2 20, BUN 71, creatinine 1.8 down from 1.9 continues to improve, continue prednisone, hemoglobin 7.7, platelet 305, blood count 12, blood pressure still elevated willadd Norvasc 10 mg p.o. daily-as per renal-MRSA bacteremia and prostatic abscess-WBC 12-monitor on Merrem and Daptomycin til 09/24 as per ID-Lasix as per nephrology-Completed Solu-Medrol on prednisone-09/12: Echo-EF 55-60%, indeterminate diastolic function parameters as per cardio-BP elevated. continue to adjust meds-BS better but likely to increase with re-initiation of steroids x3 days startedby Nephrology for AIN-Endo adjusting insulin-Car transfer training 09/23-Labs reviewed-hemoglobin stable at 7.7-GI recommends decrease checking H H and video capsule endoscopy as outpatient-Nutritional indices improved-Right YWW-libxmpq-mhmcityi resolved, dressings changed today-no bleeding after heparin discontinued, SCD to left leg-Advance therapies as tolerated-discussed treatment plan with patient and -Patient progressing with therapies and is contact-guard assist with transfers for control and safety, wheelchair mobility 40 feet modified independent. Progress: PERFORMING MOVEO AT 8% INCLINE PERFORMING 2 MIN SQUATS X 4 HAVING GOOD CONTROL UNTIL ABOUT 45-15 SEC LEFT INSET HAVING LIMITED ENDURANCE. PERFORMING SIT TO STANDS IN //BARS X 5 WITH SBA, NEEDING CUES TO TAKE HIS TIME, REST BETWEEN ATTEMPTS D/T LIMITED ENDURANCE. ATTEMPTING HEEL RAISES IN // BARS 3 X 10-15 WITH LIMITED HEEL LIFT OFF AT THISTIME. PM RPlease see team note.Plan and goals discussed with the patient. I agree with the teams findingELOS- [09/24] on IV antibiotics until C-Home with -Home healthDME-bedside commode, sliding board, wheelchair, drop arm bedside commode Total time 34 minutes greater than 50% of the time spent examining patient, discussing with patient about BKA site healing, improvement in renal function, on steroids, medical issues, anemia, discharge plans, rehab plan of care, goals,therapies, progress, labs, medications. EMR and MAR is reviewed. All questionsansweredOrders: Procedure Date/time Status OT FUNCTIONAL TRN 15 MIN 09/22 UNK Complete OT EXERCISE 15MIN 09/22 UNK Complete Consultants: cardiology, endocrinology, hospitalist, infectious disease, podiatryRehab attestation:Face to face exam completed. Treatment plan discussed with patient. Meets continued stay criteria. Agree with interdisciplinary treatment plan. at 1527 [facility] #:[id number] OF REPORTPRProgress [id number]:57:00G.[id number] able for patient fzrkXJMJBVFECDWWGF9292-23-52I51:27:59 HCACL 2022-09-22 07:30:00 [id number]/C OmuucfU9VGRP2Pz9E89PWGuSDr1DN t8kpfwGlWMVfiBVw0FZNkmwVdim6557-66-51V15:30:00 [facility] ([facility])Nephrology Progress NoteREPORT#:[id number] REPORT STATUS: SignedDATE:09/22/22 TIME: 729 PATIENT: KARMA ROWLAND UNIT #: [id number]#: [id number] [address] AGE: 56 SEX: M ATTEND: Mj Vences [facility] AUTHOR: Barrera Ramírez MD * ALL edits or amendments must be made on the electronic/computer document * SubjectiveChief complaint:Infected footHPI:Patient seen and evaluated on 09/09/2022, note started, records reviewed and orders placed on 09/08/2022, 56-year-old male with history of diabetes mellitus type 2, hypertension and peripheral vascular disease who was initially admitted to acute care with altered mental status and right foot infection/gangrene, 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 Patient had persistent anemia requiring blood transfusion. His fecal occult blood was positive and his creatinine was 1.2 and increased to 1.4 today, laboratories today showed hemoglobin 8.5, platelet 231, blood count 9.1, sodium 135, potassium 4.6, CO2 22, BUN 22, creatinine 1.4. Renal consult was requested for evaluation management of elevated BUN and creatinine and if his decreased GFR iscontributing to his anemia. Patient reports:Yes: complaints. Comments:Patient seen and evaluated, HPI no change from initial, feels okay. Review of SystemsConstitutional:Reports: fatigue. Denies: chills, fever. Skin:Denies: abrasion, bruising. Allergy/Immun:Denies: hives, itching. Eyes:Denies: redness, discharge. ENT:Denies: ear drainage, ear ringing. Respiratory:Denies: hemoptysis, SOB. Cardiovascular:Denies: chest pain. Objective GeneralVS/I O:Vital Signs: Date Time Temp Pulse Resp B/P B/P Pulse O2 O2 Flow FiO2 Mean Ox Delivery Rate 09/22 0708 36.6 89 18 158/80 106.1 97 Room [...] Output, Urine 2100 PATIENT WEIGHT: Weight (lb): 167Weight (oz): 12.35Weight (kg): 76.100 MedicationsActive Meds + DC'd Last 24 HrsPrednisone (predniSONE) 50 MG C BK PO Hydralazine HCl (APRESOLINE) 100 MG Q8HR PO Insulin Glargine (Semglee) 19 UNIT BEDTIME SUBQ Daptomycin (CUBICIN 500MG) 500 MG Q24H IV (DC) Sodium Chloride (SODIUM CHLORIDE 0.9%) 50 MLHydralazine HCl (APRESOLINE) 75 MG Q8HR PO (DC) Insulin Human Lispro (HUMALOG) 10 UNIT AC SUBQ Meropenem (MEROPENEM) 500 MG Q8H IV Sterile Water (WATER FOR INJECTION) 10 MLCarvedilol (COREG) 25 MG C BK DIN PO Gabapentin (NEURONTIN) 100 MG Q8HR PO Oxycodone/Acetaminophen (PERCOCET 5/325MG TAB) 2 TAB Q4H PRN PRN PO Folic Acid (FOLIC ACID) 2 MG DAILY PO Multivitamins (TAB-A-MOHAN) 1 TAB DAILY PO Furosemide (LASIX 20MG INJ) 20 MG BLOOD-DOSE BETWEEN IV (CKD) Sodium Chloride (SODIUM CHLORIDE) 10 ML ASDIR IV Pantoprazole Sodium (PROTONIX) 40 MG Q12HR IV Polyethylene Glycol (MIRALAX) 17 GM DAILY PO Sennosides (Senna Lax 8.6 MG TABLET) 8.6 MG DAILY PO Sodium Chloride (SODIUM CHLORIDE) 10 ML ASDIR PRN IV Amitriptyline HCl (ELAVIL) 25 MG BEDTIME PO Zinc Oxide (ZINC OXIDE 30 GM OINTMENT) 1 APPLIC DAILY TOPICAL Sterile Water (WATER FOR IRRIGATION) DRESSING CHANGE ASDIR PRN IRR Insulin Human Lispro (HUMALOG) 0 AC HS SUBQ Dextrose/Water (DEXTROSE 10% IN WATER) 125 ML ASDIR PRN IV (CKD) Dextrose/Water (DEXTROSE 10% IN WATER) 250 ML ASDIR PRN IV (CKD) Glucagon (GLUCAGON) 1 MG ASDIR PRN IM Lidocaine (LIDODERM) 1 PATCH DAILY TOPICAL Acetaminophen (TYLENOL) 650 MG Q6H PRN PRN PO Bisacodyl (DULCOLAX) 10 MG DAILY PRN PRN RECTAL Docusate Sodium (COLACE) 100 MG Q12H PRN PRN PO Hydralazine HCl (APRESOLINE) 10 MG Q6H PRN PRN IV Ondansetron HCl (ZOFRAN) 4 MG Q6H PRN PRN IV Physical ExamGeneral appearance: alert, no acute distressHead/eyes: atraumatic, normocephalicENT: normal noseNeck: non-tender, supple/no meningismusCardiovascular: normal heart sounds, no rubRespiratory: aerating well, symmetric expansionAbdomen: non-tender, softGenitourinary: no flank painExtremities: non-tender, no edemaMusculoskeletal: no CVA tenderness, no tendernessNeuro/DIRECTOR OPERATING ROOM: alert, 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 Considered stroke alert: noSkin: dry, intact ResultsFindings/Data:Laboratory Tests 09/22 09/22 09/21 09/21 09/21 0617 0436 2047 1552 1437Chemistry Sodium (134 - 147 mEq/L) 138 Potassium [...] Total Creatine Kinase (46 - 171 27 LUnits/L) Albumin (3.4 - 5.0 g/dL) 1.80 L [...] - 77.0 %) 81.7 H 82.2 H 79.7 H Lymph % (Auto) (14.0 - 32.0 %) 11.3 L 11.3 L 13.0 L [place] % (Auto) (4.8 - 9.0 %) 5.7 5.3 6.2 Eos % (Auto) (0.3 - 3.7 %) 0.2 L 0.2 L 0.2 L Baso % (Auto) (0.0 - 2.0 %) 0.0 0.1 0.1 Neut # (Auto) (2.0 - 7.6 x10 3/uL) 9.79 H 10.70 H 9.84 H Lymph # (Auto) (1.0 - 3.8 x10 3/uL) 1.35 1.47 1.60 [place] # (Auto) (0.1 - 0.8 x10 3/uL) 0.68 0.69 0.76 Eos # (Auto) (0.0 - 0.2 x10 3/uL) 0.02 0.03 0.03 Baso # (Auto) (0.0 - 0.2 x10 3/uL) 0.00 0.01 0.01 Abs Immat Gran (auto) (0.00 - 0.03 x10 3/uL) 0.13 H 0.12 H 0.10 H Add Manual Diff NO NO NO Immature Gran % (0.0 - 2.0 %) 1.1 0.9 0.8 Nucleated RBC % (0 - 0 %) 0.0 0.0 0.0 Nucleated RBCs # (Man) (0.0 - 0.1 x10 3/uL) 0.00 0.00 0.00 Laboratory Tests 09/22 09/22 09/21 09/21 09/21 0617 0436 2047 1552 1437Chemistry Sodium (134 - 147 mEq/L) 138 Potassium [...] Total Creatine Kinase (46 - 171 27 LUnits/L) Albumin (3.4 - 5.0 g/dL) 1.80 L [...] (Auto) (14.0 - 32.0 %) 11.3 L [place] % (Auto) (4.8 - 9.0 %) 5.7 Eos % (Auto) (0.3 - 3.7 %) 0.2 L Baso % (Auto) (0.0 - 2.0 %) 0.0 Neut # (Auto) (2.0 - 7.6 x10 3/uL) 9.79 H Lymph # (Auto) (1.0 - 3.8 x10 3/uL) 1.35 [place] # (Auto) (0.1 - 0.8 x10 3/uL) 0.68 Eos # (Auto) (0.0 - 0.2 x10 3/uL) 0.02 Baso # (Auto) (0.0 - 0.2 x10 3/uL) 0.00 Abs Immat Gran (auto) (0.00 - 0.03 x10 3/uL) 0.13 H Add Manual Diff NO Immature Gran % (0.0 - 2.0 %) 1.1 Nucleated RBC % (0 - 0 %) 0.0 Nucleated RBCs # (Man) (0.0 - 0.1 x10 3/uL) 0.00 Diagnosis, Assessment PlanFree Text A P:Patient seen and evaluated, discussed with care team, images and laboratories reviewed.Diabetes mellitus: Insulin: Monitor blood sugar closely and adjust medications as needed, followed by endocrinology.Hypertension: Blood pressure is not well controlled, increase Coreg to 12.5 mg p.o. twice daily: Monitor blood pressure closely and adjust medications as neededRight foot gangrene/infection status post right BKAAnemia: Status post EGD and colonoscopy which were negative for active GI bleeding, patient had work-up in July 2022 which showed very high B12, normal folate, very low iron saturation but very high ferritin which was likely relatedto his infection, likely patient is very iron deficient, will repeat lab and give IV iron if needed. We will check serum immunofixation.Acute kidney injury: We will check renal bladder ultrasound, check postvoid residual, check urine protein creatinine ratioHypomagnesemia: We will supplement09/10/2022 laboratory this morning showed sodium 135, potassium 4.2, CO2 21, BUN 25, creatinine 1.9 continues to worsen, etiology unclear, however his development some eosinophilia not sure if he is developing AIN, suggest changingcefepime to a different class of antibiotic if possible, will check renal bladder ultrasound09/11/2022 laboratory this morning showed sodium 134, potassium 4.3, CO2 22, BUN 26, creatinine 2 up from 1.9, hopefully creatinine is plateauing, renal ultrasound negative.09/12/2022 laboratory this morning showed sodium 134, potassium 4.2, CO2 20, BUN 31, creatinine 2.4 continues to worsen, discussed with ID, AIN is probably the etiology of the unexplained deterioration of his renal function, antibiotics to be adjusted by infectious disease, will give Solu-Medrol 125 mg IV daily for 3 days. Significant lower extremity edema, will start Lasix 20 mg p.o. twice daily.09.13.22: pt was seen and examined. Very thirsty. serum creatinine is worsening today. Vancomycin was stopped yesterday and Solu medrol was started. Mild hypovolemic hyponatremia. Will DC lasix and monitor his renal functions. BP is well controlled. 23: pt was seen and examined. Feels better but still thirsty. I stopped hislasix. will start NS at 75 cc for one Leter only. serum creatinine is improving.Received three doses of Solu Medrol a well. BP is on the higher side, likely secondary to steroids. will monitor for now. mild hypovelmic hyponatremia. also could be secondary to hyperglycemia. 09/15/2022 we will give additional dose of Solu-Medrol 125 mg IV today, laboratory this morning showed sodium 132, potassium 4.7, CO2 17, chloride 105, BUN 38, creatinine 2.9, glucose 312, hemoglobin 8.2, platelet 341, blood count 8.7, needs better blood sugar control, if creatinine does not start improving the next couple days will plan for kidney biopsy09/16/2022 laboratory this morning showed sodium 135, potassium 4.5, CO2 20, BUN 60, creatinine 2.7, better down from 2.9, hemoglobin 7.6, platelet 360, blood count 9.5, will give prednisone 80 mg p.o. today, blood pressure is elevated, will add hydralazine 25 mg p.o. 3 times daily, scrotal and LE swelling will giveLasix 40 mg IV x blood pressure still elevated, will increase hydralazine to 50 mg p.o.3 times daily, will give 80 mg of prednisone today, urine output with Lasix 4125, laboratory this morning showed sodium 136, potassium 4.5, CO2 21, BUN 66, creatinine 2.4 down from 2.7, will give 3 more doses of IV Lasix 40 mg every 8 hours09/18/2022 laboratory this morning showed sodium 138, potassium 4.1, CO2 21, BUN 66, creatinine 2.2 continues to improve, urine output 2.7 L, hemoglobin 7.6, platelet 341, blood count 10.6, will give Lasix 40 mg IV every 8 for 3 doses, start prednisone 60 mg p.o. daily for 3 days, increase hydralazine to 75 mg p.o.3 times daily.09/19/2022 blood pressure better, sodium 139, potassium 3.8, CO2 22, BUN 72 up from 66, creatinine 2.3 up from 2.2, will hold off diuretics, urine output reported 2 L, magnesium 1.69 we will give magnesium sulfate 2 g IV x1, continue prednisone.09/20/2022 laboratory this morning showed sodium 136, potassium 4.2, CO2 21, BUN 76, creatinine 2.2 down from 2.3, hemoglobin 7.6, platelet 302, blood count 12.3, continue off diuretics09/21/2022 blood pressure still elevated will increase hydralazine to 100 mg p.o.3 times daily, hemoglobin 7.6, platelet 296, blood count 13, urine output reported 3025, will start prednisone 50 mg p.o. daily for 3 days, sodium 137, potassium 4.6, CO2 22, BUN 75, creatinine 1.9 down from 2.2 continues to improve.09/22/2022 laboratory this morning showed sodium 138, potassium 5.1, CO2 20, BUN 71, creatinine 1.8 down from 1.9 continues to improve, continue prednisone, hemoglobin 7.7, platelet 305, blood count 12, blood pressure still elevated willadd Norvasc 10 mg p.o. daily.Consultants: cardiology, endocrinology, hospitalist, infectious disease, podiatry at 0947 RPT #:[id number] OF REPORTPRProgress [id number]:30:00G.[id number] able for patient oarlVJQRCCNYYKLDPZ9677-06-12Z74:50:22 [facility] 2022-09-22 07:17:00 [id number] H7zwMzuF4WavQNGC5oggEFdVRogEC me5AqlhhGLANu4FaAOgetLWkuEZ3322-70-27B46:17:00 [facility] HospitalHospital[facility] Progress NoteREPORT#:[id number] REPORT STATUS: SignedDATE:09/22/22 TIME: 07 PATIENT: KARMA ROWLAND UNIT #: [id number]#: [id number] [address] [birth year] AGE: 56 SEX: M ATTEND: Mj Vences [facility] AUTHOR: Wilbert Ramires MD * ALL edits or amendments must be made on the electronic/computer document * SubjectiveChief complaint:Edema LLE improved but still present Review of SystemsAll systems rev neg: except as noted Objective GeneralVS/I O:Vital Signs: Date Time Temp Pulse Resp B/P [...] 1900 Intake Total Output Total 2100 Balance -2099 Number 1 Bowel Movements Number 0 Incontinent Voids Number Voids 0 Output, Urine 2100 PATIENT WEIGHT: Weight (lb): 167Weight (oz): 12.35Weight (kg): 76.100 Medications:Active Meds + DC'd Last 24 HrsPrednisone (predniSONE) 50 MG C BK PO Hydralazine HCl (APRESOLINE) 100 MG Q8HR PO Insulin Glargine (Semglee) 19 UNIT BEDTIME SUBQ Daptomycin (CUBICIN 500MG) 500 MG Q24H IV (DC) Sodium Chloride (SODIUM CHLORIDE 0.9%) 50 MLHydralazine HCl (APRESOLINE) 75 MG Q8HR PO (DC) Insulin Human Lispro (HUMALOG) 10 UNIT AC SUBQ Meropenem (MEROPENEM) 500 MG Q8H IV Sterile Water (WATER FOR INJECTION) 10 MLCarvedilol (COREG) 25 MG C BK DIN PO Gabapentin (NEURONTIN) 100 MG Q8HR PO Oxycodone/Acetaminophen (PERCOCET 5/325MG TAB) 2 TAB Q4H PRN PRN PO Folic Acid (FOLIC ACID) 2 MG DAILY PO Multivitamins (TAB-A-MOHAN) 1 TAB DAILY PO Furosemide (LASIX 20MG INJ) 20 MG BLOOD-DOSE BETWEEN IV (CKD) Sodium Chloride (SODIUM CHLORIDE) 10 ML ASDIR IV Pantoprazole Sodium (PROTONIX) 40 MG Q12HR IV Polyethylene Glycol (MIRALAX) 17 GM DAILY PO Sennosides (Senna Lax 8.6 MG TABLET) 8.6 MG DAILY PO Sodium Chloride (SODIUM CHLORIDE) 10 ML ASDIR PRN IV Amitriptyline HCl (ELAVIL) 25 MG BEDTIME PO Zinc Oxide (ZINC OXIDE 30 GM OINTMENT) 1 APPLIC DAILY TOPICAL Sterile Water (WATER FOR IRRIGATION) DRESSING CHANGE ASDIR PRN IRR Insulin Human Lispro (HUMALOG) 0 AC HS SUBQ Dextrose/Water (DEXTROSE 10% IN WATER) 125 ML ASDIR PRN IV (CKD) Dextrose/Water (DEXTROSE 10% IN WATER) 250 ML ASDIR PRN IV (CKD) Glucagon (GLUCAGON) 1 MG ASDIR PRN IM Lidocaine (LIDODERM) 1 PATCH DAILY TOPICAL Acetaminophen (TYLENOL) 650 MG Q6H PRN PRN PO Bisacodyl (DULCOLAX) 10 MG DAILY PRN PRN RECTAL Docusate Sodium (COLACE) 100 MG Q12H PRN PRN PO Hydralazine HCl (APRESOLINE) 10 MG Q6H PRN PRN IV Ondansetron HCl (ZOFRAN) 4 MG Q6H PRN PRN IV Physical ExamGeneral appearance: alert, awake, orientedHead/Eyes: atraumatic, normocephalicENT: moist mucosal membranesNeck: no JVDCardiovascular: normal heart sounds, regular rate rhythmRespiratory: aerating well, clear to auscultationAbdomen: non-tender, normal bowel soundsGenitourinary: no bladder distentionExtremities: edema (1+ pitting edema to thigh), moves all, normal capillary refillMusculoskeletal: normal inspectionNeuro/DIRECTOR OPERATING ROOM: alert, oriented X 3, 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 Considered stroke alert: noSkin: dry, intactPsychiatry: normal affect, normal judgment/insight ResultsFindings/Data:Laboratory Tests 09/22 09/22 09/21 09/21 09/21 0617 [...] (Auto) (14.0 - 32.0 %) 11.3 L [place] % (Auto) (4.8 - 9.0 %) 5.7 Eos % (Auto) (0.3 - 3.7 %) 0.2 L Baso % (Auto) (0.0 - 2.0 %) 0.0 Neut # (Auto) (2.0 - 7.6 x10 3/uL) 9.79 H Lymph # (Auto) (1.0 - 3.8 x10 3/uL) 1.35 [place] # (Auto) (0.1 - 0.8 x10 3/uL) 0.68 Eos # (Auto) (0.0 - 0.2 x10 3/uL) 0.02 Baso # (Auto) (0.0 - 0.2 x10 3/uL) 0.00 Abs Immat Gran (auto) (0.00 - 0.03 x10 3/uL) 0.13 H Add Manual Diff NO Immature Gran % (0.0 - 2.0 %) 1.1 Nucleated RBC % (0 - 0 %) 0.0 Nucleated RBCs # (Man) (0.0 - 0.1 x10 3/uL) 0.00 Diagnosis, Assessment PlanConsultants: cardiology, endocrinology, hospitalist, infectious disease, podiatry Free Text DxA P NotesFree text DxA P notes:Gangrene of right foot s/p Below- knee amputation Prostate abscessMRSA bacteremiaHx of Diabetes, Diabetic neuropathyHTNAKI PLANS: Continue with PT/OT per primary Wound care and Abx as per IDHepain PPXIV ironBS better but likely to increase with re-initiation of steroids x3 days started by Nephrology for AIN - Endo adjusting insulinpain controlcreatinine improving so farEdema about the same, Lasix as per renalHgb stabilized. continue to monitorBP elevated. continue to adjust medscardio following at 1102 RPT #:[id number] OF REPORTPRProgress wzgp3710-80-75E63:17:00G.[id number] able for patient sjjtXDBAPJNFKUSLLR7981-09-04A67:03:24 [facility] 2022-09-21 20:34:00 [id number]/iL jmwBxFcl3Hbd+Q0lHcnBYmZHtNdLp lViEnZBcJY8pZkaH83m9yoaIerc7181-45-89H71:34:00 [facility] ([facility])Endocrinology Progress NoteREPORT#:[id number] REPORT STATUS: SignedDATE:09/21/22 TIME: 2033 PATIENT: KARMA ROWLAND UNIT #: [id number]#: [id number] [address] AGE: 56 SEX: M ATTEND: Mj Vences MDADM AUTHOR: Braxton Chapin MD * ALL edits or amendments must be made on the electronic/computer document * SubjectivePatient reports: no complaints Objective GeneralVS:Last Documented: Result Date Time Pulse Ox 97 09/21 1554 B/P 169/83 09/21 1554 B/P Mean 111.6 09/21 1554 Temp 36.4 09/21 1554 Pulse 80 09/21 1554 Resp 18 09/21 1554 O2 Delivery Room air 09/20 2321 O2 Flow Rate 2 09/08 1322 PATIENT WEIGHT: Weight (lb): 167Weight (oz): 12.35Weight (kg): 76.100 Medications:Active Meds + DC'd Last 24 HrsPrednisone (predniSONE) 50 MG C BK PO Hydralazine HCl (APRESOLINE) 100 MG Q8HR PO Insulin Glargine (Semglee) 19 UNIT BEDTIME SUBQ Prednisone (predniSONE) 60 MG DAILY 0600 PO (DC) Daptomycin (CUBICIN 500MG) 500 MG Q24H IV (DC) Sodium Chloride (SODIUM CHLORIDE 0.9%) 50 MLHydralazine HCl (APRESOLINE) 75 MG Q8HR PO (DC) Insulin Human Lispro (HUMALOG) 10 UNIT AC SUBQ Meropenem (MEROPENEM) 500 MG Q8H IV Sterile Water (WATER FOR INJECTION) 10 MLCarvedilol (COREG) 25 MG C BK DIN PO Gabapentin (NEURONTIN) 100 MG Q8HR PO Oxycodone/Acetaminophen (PERCOCET 5/325MG TAB) 2 TAB Q4H PRN PRN PO Folic Acid (FOLIC ACID) 2 MG DAILY PO Multivitamins (TAB-A-MOHAN) 1 TAB DAILY PO Furosemide (LASIX 20MG INJ) 20 MG BLOOD-DOSE BETWEEN IV (CKD) Sodium Chloride (SODIUM CHLORIDE) 10 ML ASDIR IV Pantoprazole Sodium (PROTONIX) 40 MG Q12HR IV Polyethylene Glycol (MIRALAX) 17 GM DAILY PO Sennosides (Senna Lax 8.6 MG TABLET) 8.6 MG DAILY PO Sodium Chloride (SODIUM CHLORIDE) 10 ML ASDIR PRN IV Amitriptyline HCl (ELAVIL) 25 MG BEDTIME PO Zinc Oxide (ZINC OXIDE 30 GM OINTMENT) 1 APPLIC DAILY TOPICAL Sterile Water (WATER FOR IRRIGATION) DRESSING CHANGE ASDIR PRN IRR Insulin Human Lispro (HUMALOG) 0 AC HS SUBQ Dextrose/Water (DEXTROSE 10% IN WATER) 125 ML ASDIR PRN IV (CKD) Dextrose/Water (DEXTROSE 10% IN WATER) 250 ML ASDIR PRN IV (CKD) Glucagon (GLUCAGON) 1 MG ASDIR PRN IM Lidocaine (LIDODERM) 1 PATCH DAILY TOPICAL Acetaminophen (TYLENOL) 650 MG Q6H PRN PRN PO Bisacodyl (DULCOLAX) 10 MG DAILY PRN PRN RECTAL Docusate Sodium (COLACE) 100 MG Q12H PRN PRN PO Hydralazine HCl (APRESOLINE) 10 MG Q6H PRN PRN IV Ondansetron HCl (ZOFRAN) 4 MG Q6H PRN PRN IV Physical ExamGeneral appearance: alert, awake Diagnosis, Assessment PlanHospital course to date:Laboratory Tests: 09/21 09/21 09/21 09/21 09/21 1552 1437 1107 0530 0500Chemistry Sodium (134 - 147 mEq/L) 137 Potassium [...] 5.0 H Magnesium (1.80 - 2.40 mg/dL) 2.06Hematology WBC (4.5 - 11.0 x10 3/uL) 13.0 [...] (Auto) (14.0 - 32.0 %) 11.3 L [place] % (Auto) (4.8 - 9.0 %) 5.3 Eos % (Auto) (0.3 - 3.7 %) 0.2 L Baso % (Auto) (0.0 - 2.0 %) 0.1 Neut # (Auto) (2.0 - 7.6 x10 3/uL) 10.70 H Lymph # (Auto) (1.0 - 3.8 x10 3/uL) 1.47 [place] # (Auto) (0.1 - 0.8 x10 3/uL) 0.69 Eos # (Auto) (0.0 - 0.2 x10 3/uL) 0.03 Baso # (Auto) (0.0 - 0.2 x10 3/uL) 0.01 Abs Immat Gran (auto) (0.00 - 0.03 0.12 Hx10 3/uL) Add Manual Diff NO Immature Gran % (0.0 - 2.0 %) 0.9 Nucleated RBC % (0 - 0 %) 0.0 Nucleated RBCs # (Man) (0.0 - 0.1 0.00x10 3/uL) Laboratory Tests: 09/20 09/20 09/20 09/20 09/19 1140 0922 0505 0459 1921Chemistry Sodium (134 - 147 mEq/L) 136 Potassium [...] 5.4 H Magnesium (1.80 - 2.40 mg/dL) 2.05Hematology WBC (4.5 - 11.0 x10 3/uL) 12.3 [...] (Auto) (14.0 - 32.0 %) 13.0 L [place] % (Auto) (4.8 - 9.0 %) 6.2 Eos % (Auto) (0.3 - 3.7 %) 0.2 L Baso % (Auto) (0.0 - 2.0 %) 0.1 Neut # (Auto) (2.0 - 7.6 x10 3/uL) 9.84 H Lymph # (Auto) (1.0 - 3.8 x10 3/uL) 1.60 [place] # (Auto) (0.1 - 0.8 x10 3/uL) 0.76 Eos # (Auto) (0.0 - 0.2 x10 3/uL) 0.03 Baso # (Auto) (0.0 - 0.2 x10 3/uL) 0.01 Abs Immat Gran (auto) (0.00 - 0.03 0.10 Hx10 3/uL) Add Manual Diff NO Immature Gran % (0.0 - 2.0 %) 0.8 Nucleated RBC % (0 - 0 %) 0.0 Nucleated RBCs # (Man) (0.0 - 0.1 0.00x10 3/uL) Laboratory Tests: 09/19 09/19 09/19 09/18 09/18 1133 0501 0448 2151 1933Chemistry Sodium (134 - 147 mEq/L) 139 Potassium [...] H Magnesium (1.80 - 2.40 mg/dL) 1.69 LHematology WBC (4.5 - 11.0 x10 3/uL) 13.3 [...] % (Auto) (14.0 - 32.0 %) 16.5 [place] % (Auto) (4.8 - 9.0 %) 8.4 Eos % (Auto) (0.3 - 3.7 %) 2.4 Baso % (Auto) (0.0 - 2.0 %) 0.2 Neut # (Auto) (2.0 - 7.6 x10 3/uL) 9.50 H Lymph # (Auto) (1.0 - 3.8 x10 3/uL) 2.19 [place] # (Auto) (0.1 - 0.8 x10 3/uL) 1.11 H Eos # (Auto) (0.0 - 0.2 x10 3/uL) 0.32 H Baso # (Auto) (0.0 - 0.2 x10 3/uL) 0.02 Abs Immat Gran (auto) (0.00 - 0.03 0.14 Hx10 3/uL) Add Manual Diff NO Immature Gran % (0.0 - 2.0 %) 1.1 Nucleated RBC % (0 - 0 %) 0.0 Nucleated RBCs # (Man) (0.0 - 0.1 0.00x10 3/uL) 09/18 1611 Chemistry POC Glucose (70 [...] % (Auto) (14.0 - 32.0 %) 17.4 [place] % (Auto) (4.8 - 9.0 %) 6.9 Eos % (Auto) (0.3 - 3.7 %) 0.1 L Baso % (Auto) (0.0 - 2.0 %) 0.1 Neut # (Auto) (2.0 - 7.6 x10 3/uL) 7.91 H Lymph # (Auto) (1.0 - 3.8 x10 3/uL) 1.85 [place] # (Auto) (0.1 - 0.8 x10 3/uL) 0.73 Eos # (Auto) (0.0 - 0.2 x10 3/uL) 0.01 Baso # (Auto) (0.0 - 0.2 x10 3/uL) 0.01 Abs Immat Gran (auto) (0.00 - 0.03 x10 3/uL) 0.10 H Add Manual Diff NO Immature Gran % (0.0 - 2.0 %) 0.9 Nucleated RBC % (0 - 0 %) 0.0 Nucleated RBCs # (Man) (0.0 - 0.1 x10 3/uL) 0.00 Laboratory Tests: 09/17 09/17 09/17 09/17 09/17 [...] (Auto) (14.0 - 32.0 %) 10.2 L [place] % (Auto) (4.8 - 9.0 %) 2.9 L Eos % (Auto) (0.3 - 3.7 %) 0.0 L Baso % (Auto) (0.0 - 2.0 %) 0.1 Neut # (Auto) (2.0 - 7.6 x10 3/uL) 7.58 Lymph # (Auto) (1.0 - 3.8 x10 3/uL) 0.91 L [place] # (Auto) (0.1 - 0.8 x10 3/uL) 0.26 Eos # (Auto) (0.0 - 0.2 x10 3/uL) 0.00 Baso # (Auto) (0.0 - 0.2 x10 3/uL) 0.01 Abs Immat Gran (auto) (0.00 - 0.03 x10 3/uL) 0.14 H Add Manual Diff NO Immature Gran % (0.0 - 2.0 %) 1.6 Nucleated RBC % (0 - 0 %) 0.0 Nucleated RBCs # (Man) (0.0 - 0.1 x10 3/uL) 0.00 Laboratory Tests: 09/16 09/16 09/16 09/16 1549 1441 1110 0553 Chemistry POC Glucose (70 - 110 MG/DL) 62 L 60 L 148 H 195 H 09/16 09/15 0455 1937 Chemistry Sodium [...] % (Auto) (14.0 - 32.0 %) 18.6 [place] % (Auto) (4.8 - 9.0 %) 6.7 Eos % (Auto) (0.3 - 3.7 %) 0.2 L Baso % (Auto) (0.0 - 2.0 %) 0.1 Neut # (Auto) (2.0 - 7.6 x10 3/uL) 6.99 Lymph # (Auto) (1.0 - 3.8 x10 3/uL) 1.77 [place] # (Auto) (0.1 - 0.8 x10 3/uL) 0.64 Eos # (Auto) (0.0 - 0.2 x10 3/uL) 0.02 Baso # (Auto) (0.0 - 0.2 x10 3/uL) 0.01 Abs Immat Gran (auto) (0.00 - 0.03 x10 3/uL) 0.10 H Add Manual Diff NO Immature Gran % (0.0 - 2.0 %) 1.0 Nucleated RBC % (0 - 0 %) 0.0 Nucleated RBCs # (Man) (0.0 - 0.1 x10 3/uL) 0.00 Laboratory Tests: 09/15 09/15 09/15 09/15 1640 1304 1154 0519 Chemistry POC Glucose (70 - 110 MG/DL) 137 H 126 H 309 H Urines Urine Color (YEL/STRAW) YELLOW Urine Appearance (CLEAR) SL CLOUDY Urine pH (5.0 - 7.0) 5.0 Ur Specific [place] (1.005 - 1.030) 1.013 Urine Protein (NEGATIVE) [...] (Auto) (14.0 - 32.0 %) 11.3 L [place] % (Auto) (4.8 - 9.0 %) 3.2 L Eos % (Auto) (0.3 - 3.7 %) 0.0 L Baso % (Auto) (0.0 - 2.0 %) 0.1 Neut # (Auto) (2.0 - 7.6 x10 3/uL) 7.35 Lymph # (Auto) (1.0 - 3.8 x10 3/uL) 0.98 L [place] # (Auto) (0.1 - 0.8 x10 3/uL) 0.28 Eos # (Auto) (0.0 - 0.2 x10 3/uL) 0.00 Baso # (Auto) (0.0 - 0.2 x10 3/uL) 0.01 Abs Immat Gran (auto) (0.00 - 0.03 x10 3/uL) 0.04 H Add Manual Diff NO Immature Gran % (0.0 - 2.0 %) 0.5 Nucleated RBC % (0 - 0 %) 0.0 Nucleated RBCs # (Man) (0.0 - 0.1 x10 3/uL) 0.00 Microbiology: Date/Time Procedure - Status Source Growth 09/15 05 MRSA DNA Surveillance Screen - COMP NASAL Laboratory Tests: 09/14 09/14 09/14 09/14 09/13 1130 0736 0526 0525 1937Chemistry Sodium (134 - 147 mEq/L) 132 L [...] H Calcium (8.0 - 10.5 mg/dL) 7.5 LHematology WBC (4.5 - 11.0 x10 3/uL) 9.5 [...] (Auto) (14.0 - 32.0 %) 13.9 L [place] % (Auto) (4.8 - 9.0 %) 5.1 Eos % (Auto) (0.3 - 3.7 %) 0.0 L Baso % (Auto) (0.0 - 2.0 %) 0.1 Neut # (Auto) (2.0 - 7.6 x10 3/uL) 7.58 Lymph # (Auto) (1.0 - 3.8 x10 3/uL) 1.31 [place] # (Auto) (0.1 - 0.8 x10 3/uL) 0.48 Eos # (Auto) (0.0 - 0.2 x10 3/uL) 0.00 Baso # (Auto) (0.0 - 0.2 x10 3/uL) 0.01 Abs Immat Gran (auto) (0.00 - 0.03 0.07 Hx10 3/uL) Add Manual Diff NO Immature Gran % (0.0 - 2.0 %) 0.7 Nucleated RBC % (0 - 0 %) 0.0 Nucleated RBCs # (Man) (0.0 - 0.1 0.00x10 3/uL) 09/13 1629 Chemistry POC Glucose (70 - 110 MG/DL) 130 H Laboratory Tests: 09/13 09/13 09/13 09/12 1105 0558 1295 2016 Chemistry Sodium (134 - 147 mEq/L) [...] (Auto) (14.0 - 32.0 %) 10.4 L [place] % (Auto) (4.8 - 9.0 %) 3.5 L Eos % (Auto) (0.3 - 3.7 %) 0.0 L Baso % (Auto) (0.0 - 2.0 %) 0.1 Neut # (Auto) (2.0 - 7.6 x10 3/uL) 8.34 H Lymph # (Auto) (1.0 - 3.8 x10 3/uL) 1.02 [place] # (Auto) (0.1 - 0.8 x10 3/uL) 0.34 Eos # (Auto) (0.0 - 0.2 x10 3/uL) 0.00 Baso # (Auto) (0.0 - 0.2 x10 3/uL) 0.01 Abs Immat Gran (auto) (0.00 - 0.03 x10 3/uL) 0.07 H Add Manual Diff NO Immature Gran % (0.0 - 2.0 %) 0.7 Nucleated RBC % (0 - 0 %) 0.0 Nucleated RBCs # (Man) (0.0 - 0.1 x10 3/uL) 0.00 Microbiology: Date/Time Procedure - Status Source Growth 09/13 7142 MRSA DNA Surveillance Screen - RECD NASAL [...] % (Auto) (14.0 - 32.0 %) 15.0 [place] % (Auto) (4.8 - 9.0 %) 7.9 Eos % (Auto) (0.3 - 3.7 %) 3.8 H Baso % (Auto) (0.0 - 2.0 %) 0.3 Neut # (Auto) (2.0 - 7.6 x10 3/uL) 6.34 Lymph # (Auto) (1.0 - 3.8 x10 3/uL) 1.31 [place] # (Auto) (0.1 - 0.8 x10 3/uL) 0.69 Eos # (Auto) (0.0 - 0.2 x10 3/uL) 0.33 H Baso # (Auto) (0.0 - 0.2 x10 3/uL) 0.03 Abs Immat Gran (auto) (0.00 - 0.03 x10 3/uL) 0.06 H Add Manual Diff NO Immature Gran % (0.0 - 2.0 %) 0.7 Nucleated RBC % (0 - 0 %) 0.0 Nucleated RBCs # (Man) (0.0 - 0.1 x10 3/uL) 0.00 Toxicology Random Vancomycin (mcg/mL) 16.7 Laboratory Tests: 09/11 09/11 09/11 09/11 09/11 1532 1445 1114 0541 0445Chemistry Sodium (134 - 147 mEq/L) 134 Potassium [...] MG/DL) 4.7 Magnesium (1.80 - 2.40 mg/dL) 1.90Hematology WBC (4.5 - 11.0 x10 3/uL) 7.9 [...] % (Auto) (14.0 - 32.0 %) 16.1 [place] % (Auto) (4.8 - 9.0 %) 9.1 H Eos % (Auto) (0.3 - 3.7 %) 5.6 H Baso % (Auto) (0.0 - 2.0 %) 0.5 Neut # (Auto) (2.0 - 7.6 x10 3/uL) 5.35 Lymph # (Auto) (1.0 - 3.8 x10 3/uL) 1.27 [place] # (Auto) (0.1 - 0.8 x10 3/uL) 0.72 Eos # (Auto) (0.0 - 0.2 x10 3/uL) 0.44 H Baso # (Auto) (0.0 - 0.2 x10 3/uL) 0.04 Abs Immat Gran (auto) (0.00 - 0.03 0.06 Hx10 3/uL) Add Manual Diff NO Immature Gran % (0.0 - 2.0 %) 0.8 Nucleated RBC % (0 - 0 %) 0.0 Nucleated RBCs # (Man) (0.0 - 0.1 0.00x10 3/uL)Toxicology Random Vancomycin (mcg/mL) 18.3 09/10 1851 Chemistry POC Glucose (70 - 110 MG/DL) 97 Laboratory Tests: 09/10 09/10 09/10 09/10 09/10 1715 1625 1430 1007 0545Chemistry Sodium (134 - 147 mEq/L) 135 Potassium [...] MG/DL) 4.6 Magnesium (1.80 - 2.40 mg/dL) 1.89Hematology WBC (4.5 - 11.0 x10 3/uL) 8.6 [...] % (Auto) (14.0 - 32.0 %) 15.5 [place] % (Auto) (4.8 - 9.0 %) 8.5 Eos % (Auto) (0.3 - 3.7 %) 5.5 H Baso % (Auto) (0.0 - 2.0 %) 0.4 Neut # (Auto) (2.0 - 7.6 x10 3/uL) 5.94 Lymph # (Auto) (1.0 - 3.8 x10 3/uL) 1.33 [place] # (Auto) (0.1 - 0.8 x10 3/uL) 0.73 Eos # (Auto) (0.0 - 0.2 x10 3/uL) 0.47 H Baso # (Auto) (0.0 - 0.2 x10 3/uL) 0.03 Abs Immat Gran (auto) (0.00 - 0.03 0.06 Hx10 3/uL) Add Manual Diff NO Immature Gran % (0.0 - 2.0 %) 0.7 Nucleated RBC % (0 - 0 %) 0.0 Nucleated RBCs # (Man) (0.0 - 0.1 0.00x10 3/uL)Toxicology Random Vancomycin (mcg/mL) 15.7 09/10 09/09 0041 5111 Chemistry POC Glucose (70 - 110 MG/DL) 154 H 102 Recent Impressions:ULTRASOUND - US RETROPERITONEAL COM 09/10 1311 Report Impression - Status: SIGNED Entered: 09/10/2022 1503 IMPRESSION: No acute findings. Impression By: Yared Mares M.D. Laboratory Tests: 09/09 09/09 09/09 09/09 09/09 [...] % (Auto) (14.0 - 32.0 %) 16.1 [place] % (Auto) (4.8 - 9.0 %) 9.2 H Eos % (Auto) (0.3 - 3.7 %) 4.7 H Baso % (Auto) (0.0 - 2.0 %) 0.4 Neut # (Auto) (2.0 - 7.6 x10 3/uL) 6.38 Lymph # (Auto) (1.0 - 3.8 x10 3/uL) 1.49 [place] # (Auto) (0.1 - 0.8 x10 3/uL) 0.85 H Eos # (Auto) (0.0 - 0.2 x10 3/uL) 0.43 H Baso # (Auto) (0.0 - 0.2 x10 3/uL) 0.04 Abs Immat Gran (auto) (0.00 - 0.03 x10 3/uL) 0.05 H Add Manual Diff NO Immature Gran % (0.0 - 2.0 %) 0.5 Nucleated RBC % (0 - 0 %) 0.0 Nucleated RBCs # (Man) (0.0 - 0.1 x10 3/uL) 0.00 Retic Count (auto) (0.3 - 2.3 [...] (Auto) (14.0 - 32.0 %) 13.7 L [place] % (Auto) (4.8 - 9.0 %) 7.2 Eos % (Auto) (0.3 - 3.7 %) 4.8 H Baso % (Auto) (0.0 - 2.0 %) 0.3 Neut # (Auto) (2.0 - 7.6 x10 3/uL) 6.64 Lymph # (Auto) (1.0 - 3.8 x10 3/uL) 1.24 [place] # (Auto) (0.1 - 0.8 x10 3/uL) 0.65 Eos # (Auto) (0.0 - 0.2 x10 3/uL) 0.43 H Baso # (Auto) (0.0 - 0.2 x10 3/uL) 0.03 Abs Immat Gran (auto) (0.00 - 0.03 x10 3/uL) 0.06 H Add Manual Diff NO Immature Gran % (0.0 - 2.0 %) 0.7 Nucleated RBC % (0 - 0 %) 0.0 Nucleated RBCs # (Man) (0.0 - 0.1 x10 3/uL) 0.00 Laboratory Tests: 09/07 09/07 09/07 09/07 09/07 1554 1137 1127 0618 0510 Chemistry Creatinine (0.6 - 1.3 mg/dL) 1.4 H POC Glucose (70 - 110 MG/DL) 112 H 51 L 42 L 135 H Hematology Hgb (12.5 - 16.9 [...] 1739 Occult Blood - COMP STOOL Recent Impressions:RADIOLOGY - XR ABDOMEN 1V (KUB) 09/04 1648 Report Impression - Status: SIGNED Entered: 09/04/2022 1757 IMPRESSION: Benign appearance of the abdomen.Impression By: [email or web address] - Roger Parra M.D.ULTRASOUND - DUP VEIN UNI/LTD 09/05 1146 Report Impression - Status: SIGNED Entered: 09/05/2022 1333 IMPRESSION: 1. No evidence of deep vein thrombosis. 2. Complex heterogeneous hypoechoic fluid collection in the left calf region measuring 8.4 x 2.8 x 2.5 cm; there is no internal vascularity or peripheral hyperemia. May represent a hematoma.Impression By: [email or web address] - Mert Ga M.D.RADIOLOGY - XR CHEST 1 V 09/05 1432 Report Impression - Status: SIGNED Entered: 09/05/2022 1515 IMPRESSION: Minimal bibasilar pulmonary opacitiesImpression By: TipTDO - Bishop Mares M.D. Laboratory Tests: 09/04 09/04 09/04 09/04 09/04 [...] COLB STOOL 1.Diabetes mellitus type 2 uncontrolled complications.2. Status post right BKA3. Status post gangrene of the right foot.4. Sepsis5. Prostate abscess.6. AnemiaBlood sugar 148-170 mg/dL.H/H 8.11/17.Adjust insulin dose.PT and OT. at 2035 RPT #:[id number] OF REPORTPRProgress [id number]:34:00G.[id number] able for patient neunNWFVTIJWHTATAC1342-43-47X80:35:53 [facility] 2022-09-21 19:23:00 [id number] [id number] f9M6PgiAOVt+u/SL5xD08UwIFTO0077-28-45X34:23:00 [facility] HospitalCard[facility] Progress NoteREPORT#:[id number] REPORT STATUS: SignedDATE:09/21/22 TIME: 1922 PATIENT: KARMA ROWLAND UNIT #: [id number]#: [id number] [address] AGE: 56 SEX: M ATTEND: Mj Vences MDADM AUTHOR: Napoleon Parham MD * ALL edits or amendments must be made on the electronic/computer document * SubjectiveChief complaint:weaknessComments:No new symptoms, reports significant improvement in leg swelling Objective GeneralVS/I O:24 hour I O ending at 0700: 09/21 0700 09/20 1900 Intake Total 120 Output Total 925 2100 Balance -805 -2100 Intake, Oral 120 Number 0 0 Incontinent Voids Number Voids 0 0 Output, Urine 925 2100 Vital Signs: Date Time Temp Pulse Resp B/P B/P Pulse O2 O2 Flow FiO2 Mean Ox Delivery Rate 09/21 1554 97.5 80 18 169/83 111.6 97 09/21 0715 97.9 80 16 148/79 102.3 98 09/20 2321 97.3 84 14 161/79 105.9 98 Room air PATIENT WEIGHT: Weight (lb): 167Weight (oz): 12.35Weight (kg): 76.100 Medications:Active Meds + DC'd Last 24 HrsPrednisone (predniSONE) 50 MG C BK PO Hydralazine HCl (APRESOLINE) 100 MG Q8HR PO Insulin Glargine (Semglee) 19 UNIT BEDTIME SUBQ Prednisone (predniSONE) 60 MG DAILY 0600 PO (DC) Daptomycin (CUBICIN 500MG) 500 MG Q24H IV (DC) Sodium Chloride (SODIUM CHLORIDE 0.9%) 50 MLHydralazine HCl (APRESOLINE) 75 MG Q8HR PO (DC) Insulin Human Lispro (HUMALOG) 10 UNIT AC SUBQ Meropenem (MEROPENEM) 500 MG Q8H IV Sterile Water (WATER FOR INJECTION) 10 MLCarvedilol (COREG) 25 MG C BK DIN PO Gabapentin (NEURONTIN) 100 MG Q8HR PO Oxycodone/Acetaminophen (PERCOCET 5/325MG TAB) 2 TAB Q4H PRN PRN PO Folic Acid (FOLIC ACID) 2 MG DAILY PO Multivitamins (TAB-A-MOHAN) 1 TAB DAILY PO Furosemide (LASIX 20MG INJ) 20 MG BLOOD-DOSE BETWEEN IV (CKD) Sodium Chloride (SODIUM CHLORIDE) 10 ML ASDIR IV Pantoprazole Sodium (PROTONIX) 40 MG Q12HR IV Polyethylene Glycol (MIRALAX) 17 GM DAILY PO Sennosides (Senna Lax 8.6 MG TABLET) 8.6 MG DAILY PO Sodium Chloride (SODIUM CHLORIDE) 10 ML ASDIR PRN IV Amitriptyline HCl (ELAVIL) 25 MG BEDTIME PO Zinc Oxide (ZINC OXIDE 30 GM OINTMENT) 1 APPLIC DAILY TOPICAL Sterile Water (WATER FOR IRRIGATION) DRESSING CHANGE ASDIR PRN IRR Insulin Human Lispro (HUMALOG) 0 AC HS SUBQ Dextrose/Water (DEXTROSE 10% IN WATER) 125 ML ASDIR PRN IV (CKD) Dextrose/Water (DEXTROSE 10% IN WATER) 250 ML ASDIR PRN IV (CKD) Glucagon (GLUCAGON) 1 MG ASDIR PRN IM Lidocaine (LIDODERM) 1 PATCH DAILY TOPICAL Acetaminophen (TYLENOL) 650 MG Q6H PRN PRN PO Bisacodyl (DULCOLAX) 10 MG DAILY PRN PRN RECTAL Docusate Sodium (COLACE) 100 MG Q12H PRN PRN PO Hydralazine HCl (APRESOLINE) 10 MG Q6H PRN PRN IV Ondansetron HCl (ZOFRAN) 4 MG Q6H PRN PRN IV Physical ExamGeneral appearance: alert, awake, orientedNeck: no bruit/NL carotids, no JVDCardiovascular: CV assessment: regular rate and rhythm, no ectopy, no gallopRespiratory: clear to auscultation, no distressAbdomen: soft, non-tenderGenitourinary: urinary catheterLower extremity: LE assessment: edema, normal temperatureNeuro/DIRECTOR OPERATING ROOM: alert, oriented X 3 Considered stroke alert: noWound/incision: Location:right bkaPsychiatry: normal affect, normal judgment/insight, normal mood ResultsFindings/Data:Laboratory Tests 09/21 09/21 09/21 09/21 09/21 1552 [...] (Auto) (14.0 - 32.0 %) 11.3 L [place] % (Auto) (4.8 - 9.0 %) 5.3 Eos % (Auto) (0.3 - 3.7 %) 0.2 L Baso % (Auto) (0.0 - 2.0 %) 0.1 Neut # (Auto) (2.0 - 7.6 x10 3/uL) 10.70 H Lymph # (Auto) (1.0 - 3.8 x10 3/uL) 1.47 [place] # (Auto) (0.1 - 0.8 x10 3/uL) 0.69 Eos # (Auto) (0.0 - 0.2 x10 3/uL) 0.03 Baso # (Auto) (0.0 - 0.2 x10 3/uL) 0.01 Abs Immat Gran (auto) (0.00 - 0.03 x10 3/uL) 0.12 H Add Manual Diff NO Immature Gran % (0.0 - 2.0 %) 0.9 Nucleated RBC % (0 - 0 %) 0.0 Nucleated RBCs # (Man) (0.0 - 0.1 x10 3/uL) 0.00 Laboratory Tests 09/21 0500 Chemistry Magnesium (1.80 - 2.40 mg/dL) 2.06 Diagnosis, Assessment PlanConsultants: cardiology, endocrinology, hospitalist, infectious disease, podiatry Free Text DxA P NotesFree Text DxA P Notes:Impression: 1. Debility2. Infected right foot status post BKA3. Bacteremia4. Diabetes5. Hypertension 6. Anemia7. Acute Diastolic CHF 07/2022: Echocardiogram with normal LVEF, grade 1 diastolic dysfunction, mildly dilated LA, and no significant valvular abnormalities Recommendation: Patient initially presented with DKA and sepsis. Diagnosed with right foot infection, underwent I D, now status post BKA. Patient had persistent bacteremia with MRSA, underwent JIMENA with negative findings of endocarditis. Patient now transferred to rehab for physical therapy. Known cardiac history ofhypertension and hyperlipidemia. Vital signs stable. Echocardiogram with normal LVEF, grade 1 diastolic dysfunction, mildly dilated LA, and no significant valvular abnormalities. Continue to monitor blood pressure trend. Continue wound care and IV antibiotic therapy. Continue PT/OT. Supportive care. 09/04: Patient complaining of shortness of breath, abdominal distention and lowerextremity edema. Renal function and electrolytes stable. Will give one-time dose of IV Lasix 40 mg. Blood pressure stable. Pending abdominal x-ray. Monitor intake and output. Check BMP in the morning. Supportive care. Plan ofcare discussed with patient, RN and Dr. Parham. 09/05: Patient responded well to IV Lasix, good urine output and improvement in shortness of breath. Chest x-ray ordered. Currently on Lasix 20 mg p.o. daily. Continue monitor renal function and electrolytes. Pending lower extremity Doppler for lower extremity edema. Continue PT/OT. Supportive care. Plan of care discussed with patient, RN and Dr. Parham. 09/08: Blood pressure has been elevated, started on Coreg 3.125 mg twice daily. Continue monitor blood pressure trend and adjust medication as needed. Still having left lower extremity edema, venous Doppler negative for DVT. continue gentle diuresis with Lasix 20 mg p.o. daily. Recommend Joan wrap. Patient remains anemic, plan for EGD/colonoscopy today. Supportive care. Plan of care discussed with patient, family, RN and Dr. Parham. 09/09: Patient doing well status post EGD/colonoscopy, negative findings for GI bleed. Blood pressure improving, increased on Coreg to 12.5 mg twice daily. Elevated creatinine noted, nephrology following. No new cardiac complaint. Continue wound care. Continue PT/OT. Supportive care. Plan of care discussed with patient, RN and Dr. Parham. 09/10: Blood pressure remained stable on current regimen of Coreg. Patient continue to have left lower extremity edema. Currently on Lasix 20 mg daily. Creatinine 1.9 today, continue to monitor. Patient's albumin level was 1.3, it is possible that patient's lower extremity edema could be related to hypoalbuminemia leading to third spacing. Continue PT/OT. Supportive care. Plan of care discussed with patient, RN and Dr. Parham. 09/11: Patient doing well from cardiac standpoint. Blood pressure well controlled. Improvement in lower extremity edema with elevating leg while in bed. Creatinine 2.0 today. Denies shortness of breath. Will hold diuretic for now and monitor renal function. Supportive care. Plan of care discussed with patient, RN and Dr. Parham. 09/12: Creatinine remains elevated at 2.4 today, antibiotic regimen also being adjusted. Patient still with lower extremity edema and rales on physical examination. Will check chest x-ray and limited echocardiogram for further evaluation. Check BNP. Continue hold diuretic for now. Supportive care. Planof care discussed with patient, RN and Dr. Parham. 09/15: Repeat echocardiogram showed LVEF of 55 to 60%, no regional wall motion abnormalities, left ventricular diastolic function parameters are indeterminate,mildly dilated LA, and no pericardial effusion. BNP elevated 297. Continue to hold diuretic due to Elevated creatinine, nephrology following and may consider renal biopsy. Continue to monitor fluid volume status. Overall improvement in lower extremity with Joan wrap. Continue physical therapy. Supportive care. Plan of care discussed with patient, RN and Dr. Parham. 09/16: Blood pressure slightly elevated, started on hydralazine 25 mg every 8 hours. Continue carvedilol monitor blood pressure trend. Cr. 2.7 today, continue monitor. Tolerating physical therapy. Euvolemic by physical examination. Supportive care. Plan of care discussed with patient, RN and Dr. Parham. 09/17: Blood pressure remains elevated, likely related to steroid therapy. Hydralazine increased to 50 mg 3 times daily. Nephrology managing diuretic therapy. Continue monitor renal function and electrolytes. Improvement in lower extremity swelling. Patient denies chest pain or shortness of breath. Tolerating PT/OT. Supportive care. Plan of care discussed with patient, RN andDr. Parham. 09/18: Blood pressure remains elevated due to steroid therapy. Continue monitor blood pressure trend, hydralazine increased to 75 mg 3 times daily. Responding to diuretic regimen with Lasix, good urine output. Creatinine improving, 2.2 today. Continue to monitor fluid volume status. Continue physical therapy. Supportive care. Plan of care discussed with patient, RN and Dr. Parham. 09/19: Blood pressure improving, continue hydralazine and carvedilol. Overall improvement in fluid volume status. No new cardiac complaint. Continue steroidtaper per nephrology. Progressing in therapy. Discharge planning. Supportive care. Plan of care discussed with patient, RN and Dr. Parham. 09/20: Patient doing much better since started on steroid therapy, creatinine is slowly improving, blood pressure overall improving, nephrology is adjusting antihypertensive medication regimen, diuretic regimen per nephrology, overall stable cardiac status, discussed with patient and . 09/21: Creatinine now below 2, at 1.9, blood pressure better controlled with carvedilol and hydralazine, fluid status is improving, continue diuretic regimenper nephrology, supportive care, will follow. at 1925 RPT #:[id number] OF REPORTPRProgress [id number]:23:00G.[id number] able for patient [id number]:25:37 [facility] 2022-09-21 13:11:00 [id number] pe1MHGpfPpDmNshTYNaaNCpJjHKNo DmujDNH8KLf3kEh2EKMaK/[id number]:11:00 [facility] Progress NoteREPORT#:[id number] REPORT STATUS: SignedDATE:09/21/22 TIME: 1311 PATIENT: KARMA ROWLAND UNIT #: [id number]#: [id number] [address] [birth year] AGE: 56 SEX: M ATTEND: Mj Vences [facility] AUTHOR: Kassie Avitia MD * ALL edits or amendments must be made on the electronic/computer document * SubjectiveHPI:Patient is a 56-year-old male with history of diabetes mellitus type 2 and hypertension who was initially admitted for altered mental status and right-sided foot infection. 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 The patient is anemic with current Hgb 7.1. He has received a total of 3 units pRBCs during this hospitalization. KUB on 09/04 was negative for acute GI process. The patient denies overt GIB, dark tarry stools, nausea, abdominal pain, or vomiting. He has never had EGD orcolonoscopy. 09/06: No complaints today. Hemoglobin stable. No overt GI bleed. Plan for colonoscopy and endoscopy on Thursday 09/07: No complaints today. No overt GI bleed. Planning for colonoscopy and endoscopy tomorrow 09/08: EGD mild gastritis. colonoscopy rectal polyp s/p snare. No other abnormalities 09/09: doing well. Seen at the gym. No bleeding. 09/10: Doing well. No bleeding. tolerating diet. Movig bowels 09/11: doing well. States his leg swelling is better. Tolerating diet. having normal BM 09/12: dooing well. doing work-out at the gym. Tolerating diet. Normal BMs. Stable H/H4-Sitting up in wheelchair, family at bedside. Denies n/v/abd pain/GIB 09/15: Doing well. H/H stable. No melena or BRBPR. No nausea or vomiting. Appetite is well 09/16: doing well. no complaints. eating well 09/17: stable H/H. No complaints. 09/18/22: H/H fluctuating but overall stable 09/19: H/H stable up to 8 today. No complaints. 09/20: Hemoglobin relatively stable. No complaint 09/21: no complaints. feeling well Objective Physical ExamHEENT: atraumatic, normocephalicNeck: full range of motion, non-tenderRespiratory: symmetric expansion, no distressAbdomen: non-tender, normal bowel sounds, soft, no distention, no guardingExtremities: right BKA Considered stroke alert: noSkin: dry Diagnosis, Assessment PlanFree Text A P:1. Positive FOBT-and anemia: The patient denies overt GIB, dark tarry stools, nausea, abdominal pain, or vomiting. He is not on anticoagulation therapy.-Continue PPI. The patient has never had EGD or colonoscopy prior to this admissions/p EGD and colonoscopy. EGD showed mild gastritis. Colonoscopy showed rectal polyp that was resected by snare. no evidence of bleeding. Pathology of polyp came back as tubular adenoma. recommend repeating colonoscopy in 5 years Anemia likely secondary to chronic kidney disease and mild oozing from his stump.Can consider video capsule endoscopy as outpt if evidence of dropping H/HH/H remains stable Consider reducing frequency of H/H checkWill follow along Consultants: cardiology, endocrinology, hospitalist, infectious disease, podiatry at 1312 RPT #:[id number] OF REPORTPRProgress [id number]:11:00G.[id number] able for patient uoxmGMZXNBQGQDUROP4091-18-89Q00:12:37 [facility] 2022-09-21 11:24:00 [id number] pemyppNvNqvE+SwSukR7gpLfXhOm4 dfCVXYhXh/5pzMJBNTzZ9wiGs1K2813-24-65B59:24:00 [facility] ([facility])Pain Management Progress NoteREPORT#:[id number] REPORT STATUS: SignedDATE:09/21/22 TIME: 1124 PATIENT: KARMA ROWLAND UNIT #: [id number]#: [id number] [address] [birth year] AGE: 56 SEX: M ATTEND: Mj Vences MDA AUTHOR: Ben Klein * ALL edits or amendments must be made on the electronic/computer document * Ben Klein 09/21/22 1124:SubjectiveChief complaint:Patient seen and examined. Chart/MAR reviewed. Patient is making satisfactory progress. No acute concerns. No bothersome musclespasms or neuropathy symptoms to report. Patient being seen for Acute postoperative pain, right foot and anklegangrene, requiring BKA, Neuropathy, Constipation Patient is still requiring medications to help with managing currentproblems. No fever/chills, chest pain, orthopnea, nausea/vomiting, pruritus, orhallucinations.14 point ROS undertaken unremarkable except as noted Objective GeneralVS/I O:Vital SignsDate Temp Pulse Resp B/P B/P Mean Pulse Ox OaK137/-09/21 36.3-36.6 80-88 14-18 148-168/79-84 102.3-112.0 97-98 Last [...] Urine 925 2100 PATIENT WEIGHT: Weight (lb): 167Weight (oz): 12.35Weight (kg): 76.100 Medications:Active Meds + DC'd Last 24 HrsPrednisone (predniSONE) 50 MG C BK PO Hydralazine HCl (APRESOLINE) 100 MG Q8HR PO Insulin Glargine (Semglee) 19 UNIT BEDTIME SUBQ Insulin Glargine (Semglee) 17 UNIT BEDTIME SUBQ (DC) Prednisone (predniSONE) 60 MG DAILY 0600 PO (DC) Daptomycin (CUBICIN 500MG) 500 MG Q24H IV Sodium Chloride (SODIUM CHLORIDE 0.9%) 50 MLHydralazine HCl (APRESOLINE) 75 MG Q8HR PO (DC) Insulin Human Lispro (HUMALOG) 10 UNIT AC SUBQ Meropenem (MEROPENEM) 500 MG Q8H IV Sterile Water (WATER FOR INJECTION) 10 MLCarvedilol (COREG) 25 MG C BK DIN PO Gabapentin (NEURONTIN) 100 MG Q8HR PO Oxycodone/Acetaminophen (PERCOCET 5/325MG TAB) 2 TAB Q4H PRN PRN PO Folic Acid (FOLIC ACID) 2 MG DAILY PO Multivitamins (TAB-A-MOHAN) 1 TAB DAILY PO Furosemide (LASIX 20MG INJ) 20 MG BLOOD-DOSE BETWEEN IV (CKD) Sodium Chloride (SODIUM CHLORIDE) 10 ML ASDIR IV Pantoprazole Sodium (PROTONIX) 40 MG Q12HR IV Polyethylene Glycol (MIRALAX) 17 GM DAILY PO Sennosides (Senna Lax 8.6 MG TABLET) 8.6 MG DAILY PO Sodium Chloride (SODIUM CHLORIDE) 10 ML ASDIR PRN IV Amitriptyline HCl (ELAVIL) 25 MG BEDTIME PO Zinc Oxide (ZINC OXIDE 30 GM OINTMENT) 1 APPLIC DAILY TOPICAL Sterile Water (WATER FOR IRRIGATION) DRESSING CHANGE ASDIR PRN IRR Insulin Human Lispro (HUMALOG) 0 AC HS SUBQ Dextrose/Water (DEXTROSE 10% IN WATER) 125 ML ASDIR PRN IV (CKD) Dextrose/Water (DEXTROSE 10% IN WATER) 250 ML ASDIR PRN IV (CKD) Glucagon (GLUCAGON) 1 MG ASDIR PRN IM Lidocaine (LIDODERM) 1 PATCH DAILY TOPICAL Acetaminophen (TYLENOL) 650 MG Q6H PRN PRN PO Bisacodyl (DULCOLAX) 10 MG DAILY PRN PRN RECTAL Docusate Sodium (COLACE) 100 MG Q12H PRN PRN PO Hydralazine HCl (APRESOLINE) 10 MG Q6H PRN PRN IV Ondansetron HCl (ZOFRAN) 4 MG Q6H PRN PRN IV Physical ExamGeneral appearance: alert, awake, oriented, no acute distressHead/eyes: atraumatic, EOMI, normocephalic, normal conjunctiva/sclera, PERRLAENT: normal ear left, normal ear rightNeck: full range of motion, no lymphadenopathy, supple/no meningismusCardiovascular: regular rate rhythmRespiratory: aerating wellAbdomen: soft, non-tender, no distention, active bowel sounds in all quarants. 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: 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, no sensory deficits, CNII-XII grossly intact Considered stroke alert: noSkin: dry, intact, no rashLymphatics: axilla normalPsychiatry: normal affect, normal judgment/insight ResultsFindings/data:Laboratory Tests: 09/21 09/21 09/20 09/20 0530 0500 1958 1555Chemistry Sodium (134 - 147 mEq/L) 137 Potassium [...] 5.0 H Magnesium (1.80 - 2.40 mg/dL) 2.06Hematology WBC (4.5 - 11.0 x10 3/uL) 13.0 [...] (Auto) (14.0 - 32.0 %) 11.3 L [place] % (Auto) (4.8 - 9.0 %) 5.3 Eos % (Auto) (0.3 - 3.7 %) 0.2 L Baso % (Auto) (0.0 - 2.0 %) 0.1 Neut # (Auto) (2.0 - 7.6 x10 3/uL) 10.70 H Lymph # (Auto) (1.0 - 3.8 x10 3/uL) 1.47 [place] # (Auto) (0.1 - 0.8 x10 3/uL) 0.69 Eos # (Auto) (0.0 - 0.2 x10 3/uL) 0.03 Baso # (Auto) (0.0 - 0.2 x10 3/uL) 0.01 Abs Immat Gran (auto) (0.00 - 0.03 x10 3/uL) 0.12 H Add Manual Diff NO Immature Gran % (0.0 - 2.0 %) 0.9 Nucleated RBC % (0 - 0 %) 0.0 Nucleated RBCs # (Man) (0.0 - 0.1 x10 3/uL) 0.00 09/20 1140 Chemistry POC Glucose (70 - 110 MG/DL) 155 H Diagnosis, Assessment PlanFree text A P:A/P:Patient is a 56 year old male who presents with: Past Medical History: Prostate abscess, right foot foot and ankle gangrene, diabetes, hypertension, hyperlipidemiaPast Surgical History: TURP, right BKAFamily History: NoncontributorySocial History: Denies tobacco, alcohol, or drug useAllergies: NKDA Recent prostate abscess-Status post TURP with unroofing of abscess-IV antibiotics with vancomycin until 09-24-2022 Acute postoperative pain, right foot and ankle gangrene, requiring BKA-Patient is at risk for further amputations or loss of limb due to comorbid conditions-Status post right BKA 08/28/2022-DC Sheldon 10/325 1 tablet p.o. every 4 hours as needed pain scale 4 10-DC Dilaudid 0.5 mg IV daily as needed pain scale 7 10, second line therapy (09/13)-Tylenol 650 mg p.o. every 6 hours as needed pain scale 1 3-Percocet 10/325mg every 4 hours as needed, pain scale 4-10 (09/10)-Lidoderm patch to left ankle daily-IV antibiotics with vancomycin until 09-24-2022-Local wound care-manageable Diabetic peripheral neuropathy-amitriptyline 25mg PO QHS-Gabapentin 100mg every 8 hours (09/10)-manageable Hypertension-We will monitor hypertension and tachycardia due to pain, and hypotension as well as bradycardia secondary over sedation with narcotics-Hydralazine as needed Elevated LFTs-08/20/22-AST 51, ALT 22-09/03/2022-AST 15, ALT 7-Patient will require close monitoring since he is using narcotics with Tylenol Impaired functional mobility, balance, gait, and endurance-PT/OT Antalgic/Impaired gait-PT/OT-Improve strength, endurance, self-care, gait, balance, ADLs-Fall precautions per unit protocol-Pain medications as outlined above Constipation-We will monitor while utilizing opioid narcotic medications.-Adequate fluid intake also discussed.-Colace 100 mg p.o. twice daily as needed-Dulcolax 10 mg rectally daily as needed-Senna lax 8.6mg daily-Miralax 17gm daily-manageable Disposition: percocet 10/325mg q6h prn pain , gabapentin 100mg q8h [facility] to [facility][id number] [facility] [address] ([facility] [address]) Patient has failed conservative medical therapy.Patient will require monitoring while utilize narcotic medications for any adverse effects, and will adjust as neededPlan of care discussed with patient and nurseAll diagnostics of last 24 hours been reviewed. Risks versus benefits of opioid medications were reviewed to include, but not limited to respiratory depression, accidental overdose, altered mental status, sudden , constipation which could result in bowel obstruction, seizures, withdrawal, dependency addiction, risk for falls. Case discussed with Dr Ng whom agrees. Thank you for the consultation. [place] DIS[employer] HEARING OFFICER:-database searched, no information found Kingsley Ng 10/08/22 2230:Attestations Physician AttestationAgree w/findings plan:The patient was seen and examined by Ben Klein. I personally developed the care plan, which was continued by the mid-level provider. I was immediately available. at 1129 at 2231 RPT #:[id number] OF REPORTPRProgress [id number]:24:00G.[id number] able for patient aaaoKAIPITWUCNCSRG4266-92-26Q62:29:38 [facility] 2022-09-21 10:32:00 [id number] nN4yuUnq7JKGMh9y3S1NePJmklmmE x+eEJmMau+VlRpVP/Cyf3zVM33g9176-47-43A74:32:00 [facility] ([facility])Hospitalist Progress NoteREPORT#:[id number] REPORT STATUS: SignedDATE:09/21/22 TIME: 1032 PATIENT: KARMA ROWLAND UNIT #: [id number]#: [id number] [address] [birth year] AGE: 56 SEX: M ATTEND: Mj [facility]ences [facility] AUTHOR: Wilbert Ramires MD * ALL edits or amendments must be made on the electronic/computer document * SubjectiveChief complaint:Edema LLE improved but still present Review of SystemsAll systems rev neg: except as noted Objective GeneralVS/I O:Vital Signs: Date Time Temp Pulse Resp B/P B/P Pulse O2 O2 Flow FiO2 Mean Ox Delivery Rate 09/21 0715 [...] Urine 925 2100 PATIENT WEIGHT: Weight (lb): 167Weight (oz): 12.35Weight (kg): 76.100 Medications:Active Meds + DC'd Last 24 HrsPrednisone (predniSONE) 50 MG C BK PO Hydralazine HCl (APRESOLINE) 100 MG Q8HR PO Insulin Glargine (Semglee) 19 UNIT BEDTIME SUBQ Insulin Glargine (Semglee) 17 UNIT BEDTIME SUBQ (DC) Prednisone (predniSONE) 60 MG DAILY 0600 PO (DC) Daptomycin (CUBICIN 500MG) 500 MG Q24H IV Sodium Chloride (SODIUM CHLORIDE 0.9%) 50 MLHydralazine HCl (APRESOLINE) 75 MG Q8HR PO (DC) Insulin Human Lispro (HUMALOG) 10 UNIT AC SUBQ Meropenem (MEROPENEM) 500 MG Q8H IV Sterile Water (WATER FOR INJECTION) 10 MLCarvedilol (COREG) 25 MG C BK DIN PO Gabapentin (NEURONTIN) 100 MG Q8HR PO Oxycodone/Acetaminophen (PERCOCET 5/325MG TAB) 2 TAB Q4H PRN PRN PO Folic Acid (FOLIC ACID) 2 MG DAILY PO Multivitamins (TAB-A-MOHAN) 1 TAB DAILY PO Furosemide (LASIX 20MG INJ) 20 MG BLOOD-DOSE BETWEEN IV (CKD) Sodium Chloride (SODIUM CHLORIDE) 10 ML ASDIR IV Pantoprazole Sodium (PROTONIX) 40 MG Q12HR IV Polyethylene Glycol (MIRALAX) 17 GM DAILY PO Sennosides (Senna Lax 8.6 MG TABLET) 8.6 MG DAILY PO Sodium Chloride (SODIUM CHLORIDE) 10 ML ASDIR PRN IV Amitriptyline HCl (ELAVIL) 25 MG BEDTIME PO Zinc Oxide (ZINC OXIDE 30 GM OINTMENT) 1 APPLIC DAILY TOPICAL Sterile Water (WATER FOR IRRIGATION) DRESSING CHANGE ASDIR PRN IRR Insulin Human Lispro (HUMALOG) 0 AC HS SUBQ Dextrose/Water (DEXTROSE 10% IN WATER) 125 ML ASDIR PRN IV (CKD) Dextrose/Water (DEXTROSE 10% IN WATER) 250 ML ASDIR PRN IV (CKD) Glucagon (GLUCAGON) 1 MG ASDIR PRN IM Lidocaine (LIDODERM) 1 PATCH DAILY TOPICAL Acetaminophen (TYLENOL) 650 MG Q6H PRN PRN PO Bisacodyl (DULCOLAX) 10 MG DAILY PRN PRN RECTAL Docusate Sodium (COLACE) 100 MG Q12H PRN PRN PO Hydralazine HCl (APRESOLINE) 10 MG Q6H PRN PRN IV Ondansetron HCl (ZOFRAN) 4 MG Q6H PRN PRN IV Physical ExamGeneral appearance: alert, awake, orientedHead/Eyes: atraumatic, normocephalicENT: moist mucosal membranesNeck: no JVDCardiovascular: normal heart sounds, regular rate rhythmRespiratory: aerating well, clear to auscultationAbdomen: non-tender, normal bowel soundsGenitourinary: no bladder distentionExtremities: edema (1+ pitting edema to thigh), moves all, normal capillary refillMusculoskeletal: normal inspectionNeuro/DIRECTOR OPERATING ROOM: alert, oriented X 3, 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 Considered stroke alert: noSkin: dry, intactPsychiatry: normal affect, normal judgment/insight ResultsFindings/Data:Laboratory Tests 09/21 09/21 09/20 09/20 09/20 0530 [...] (Auto) (14.0 - 32.0 %) 11.3 L [place] % (Auto) (4.8 - 9.0 %) 5.3 Eos % (Auto) (0.3 - 3.7 %) 0.2 L Baso % (Auto) (0.0 - 2.0 %) 0.1 Neut # (Auto) (2.0 - 7.6 x10 3/uL) 10.70 H Lymph # (Auto) (1.0 - 3.8 x10 3/uL) 1.47 Lenoir # (Auto) (0.1 - 0.8 x10 3/uL) 0.69 Eos # (Auto) (0.0 - 0.2 x10 3/uL) 0.03 Baso # (Auto) (0.0 - 0.2 x10 3/uL) 0.01 Abs Immat Gran (auto) (0.00 - 0.03 x10 3/uL) 0.12 H Add Manual Diff NO Immature Gran % (0.0 - 2.0 %) 0.9 Nucleated RBC % (0 - 0 %) 0.0 Nucleated RBCs # (Man) (0.0 - 0.1 x10 3/uL) 0.00 Diagnosis, Assessment PlanConsultants: cardiology, endocrinology, hospitalist, infectious disease, podiatry Free Text DxA P NotesFree text DxA P notes:Gangrene of right foot s/p Below- knee amputation Prostate abscessMRSA bacteremiaHx of Diabetes, Diabetic neuropathyHTNAKI PLANS: Continue with PT/OT per primary Wound care and Abx as per IDHepain PPXIV ironBS better but likely to increase with re-initiation of steroids x3 days started by Nephrology for AIN - Endo adjusting insulinpain controlcreatinine stable. renal followingEdema about the same, Lasix as per renalHgb stabilized. continue to monitorBP elevated. continue to adjust meds at 1402 RPT #:[id number] OF REPORTPRProgress [id number]:32:00G.[id number] able for patient ymktFAOXAYLWXPPHAB5770-64-00E91:02:41 [facility] 2022-09-21 10:25:00 [id number] DnzRlhLwZpOA6/3eD/JulxMJ3K3ml dK4KHBkccXOjBVognTTrV5UKVuO0856-63-17G46:25:00 [facility])Podiatry Progress NoteREPORT#:[id number] REPORT STATUS: SignedDATE:09/21/22 TIME: 1025 PATIENT: KARMA ROWLAND UNIT #: [id number]#: [id number] [address] [birth year] AGE: 56 SEX: M ATTEND: Mj Vences [facility] AUTHOR: Francisco Singh DPM * ALL edits or amendments must be made on the electronic/computer document * SubjectiveChief complaint:left heel ulcer. left ankle painHPI:Patient seen at bedside this morning. No acute overnight events. No changes since yesterday. Review of SystemsConstitutional:Denies: chills, fatigue, fever, generalized weakness. Respiratory:Denies: OVIEDO (dyspnea on exertion), hemoptysis, non productive cough, SOB, wheezing. Cardiovascular:Denies: chest pain, OVIEDO (dyspnea on exertion), palpitations. GI:Denies: abdominal pain, constipation, diarrhea, nausea, vomiting. Neuro:Denies: change in LOC, confusion, dizziness, headache, lightheaded. Objective GeneralVS:Last Documented: Result Date Time Pulse Ox 98 09/21 0715 B/P 148/79 09/21 0715 B/P Mean 102.3 09/21 0715 Temp 97.9 09/21 0715 Pulse 80 09/21 0715 Resp 16 09/21 0715 O2 Delivery Room air 09/20 2321 O2 Flow Rate 2 09/08 1322 PATIENT WEIGHT: Weight (lb): 167Weight (oz): 12.35Weight (kg): 76.100 Medications:Active Meds + DC'd Last 24 HrsPrednisone (predniSONE) 50 MG C BK PO Hydralazine HCl (APRESOLINE) 100 MG Q8HR PO Insulin Glargine (Semglee) 19 UNIT BEDTIME SUBQ Insulin Glargine (Semglee) 17 UNIT BEDTIME SUBQ (DC) Prednisone (predniSONE) 60 MG DAILY 0600 PO (DC) Daptomycin (CUBICIN 500MG) 500 MG Q24H IV Sodium Chloride (SODIUM CHLORIDE 0.9%) 50 MLHydralazine HCl (APRESOLINE) 75 MG Q8HR PO (DC) Insulin Human Lispro (HUMALOG) 10 UNIT AC SUBQ Meropenem (MEROPENEM) 500 MG Q8H IV Sterile Water (WATER FOR INJECTION) 10 MLCarvedilol (COREG) 25 MG C BK DIN PO Gabapentin (NEURONTIN) 100 MG Q8HR PO Oxycodone/Acetaminophen (PERCOCET 5/325MG TAB) 2 TAB Q4H PRN PRN PO Folic Acid (FOLIC ACID) 2 MG DAILY PO Multivitamins (TAB-A-MOHAN) 1 TAB DAILY PO Furosemide (LASIX 20MG INJ) 20 MG BLOOD-DOSE BETWEEN IV (CKD) Sodium Chloride (SODIUM CHLORIDE) 10 ML ASDIR IV Pantoprazole Sodium (PROTONIX) 40 MG Q12HR IV Polyethylene Glycol (MIRALAX) 17 GM DAILY PO Sennosides (Senna Lax 8.6 MG TABLET) 8.6 MG DAILY PO Sodium Chloride (SODIUM CHLORIDE) 10 ML ASDIR PRN IV Amitriptyline HCl (ELAVIL) 25 MG BEDTIME PO Zinc Oxide (ZINC OXIDE 30 GM OINTMENT) 1 APPLIC DAILY TOPICAL Sterile Water (WATER FOR IRRIGATION) DRESSING CHANGE ASDIR PRN IRR Insulin Human Lispro (HUMALOG) 0 AC HS SUBQ Dextrose/Water (DEXTROSE 10% IN WATER) 125 ML ASDIR PRN IV (CKD) Dextrose/Water (DEXTROSE 10% IN WATER) 250 ML ASDIR PRN IV (CKD) Glucagon (GLUCAGON) 1 MG ASDIR PRN IM Lidocaine (LIDODERM) 1 PATCH DAILY TOPICAL Acetaminophen (TYLENOL) 650 MG Q6H PRN PRN PO Bisacodyl (DULCOLAX) 10 MG DAILY PRN PRN RECTAL Docusate Sodium (COLACE) 100 MG Q12H PRN PRN PO Hydralazine HCl (APRESOLINE) 10 MG Q6H PRN PRN IV Ondansetron HCl (ZOFRAN) 4 MG Q6H PRN PRN IV I O:24 hour I O ending at 0700: 09/21 0700 09/20 1900 Intake Total 120 Output Total 925 2100 Balance -805 -2100 Intake, Oral 120 Number 0 0 Incontinent Voids Number Voids 0 0 Output, Urine 925 2100 Dietitian nutrition assessmentThe data set between the solid lines has been imported from the dietitian's assessment. BMI Calculated: 27.1Nutrition related diagnosis: Nutrition diagnosis details: Nutrition problem: Altered nutrition labsNutrition etiology: DMNutrition signs and symptoms: HYPER/HYPOGLYCEMIA, A1C >14Nutrition prescription: CONTINUE RENAL DM DIETDietitian name: You Palmer, DIETAssessment completed: 09/18/22 Physical ExamGeneral appearance: no acute distress, no respiratory distressWound/incision: Location:left foot Site condition: dp/pt 2/4 left. light touch decreased left foot. ulcer starting at posterior left heel. eccymosis noted. early likely stage 1. left ankle has edema. pain with aggressive ROM left ankle. dorsal left midfoot is starting to have tissue injuryLE vascular pulse assess:2+ L posterior tibialis, 2+ L dorsalis pedis Considered stroke alert: noUlcer: Location: DTI dorsal left midfoot ResultsFindings/Data:Laboratory Tests: 09/21 09/21 09/20 09/20 0530 0500 1958 1555Chemistry Sodium (134 - 147 mEq/L) 137 Potassium [...] 5.0 H Magnesium (1.80 - 2.40 mg/dL) 2.06Hematology WBC (4.5 - 11.0 x10 3/uL) 13.0 [...] (Auto) (14.0 - 32.0 %) 11.3 L Lenoir % (Auto) (4.8 - 9.0 %) 5.3 Eos % (Auto) (0.3 - 3.7 %) 0.2 L Baso % (Auto) (0.0 - 2.0 %) 0.1 Neut # (Auto) (2.0 - 7.6 x10 3/uL) 10.70 H Lymph # (Auto) (1.0 - 3.8 x10 3/uL) 1.47 Lenoir # (Auto) (0.1 - 0.8 x10 3/uL) 0.69 Eos # (Auto) (0.0 - 0.2 x10 3/uL) 0.03 Baso # (Auto) (0.0 - 0.2 x10 3/uL) 0.01 Abs Immat Gran (auto) (0.00 - 0.03 x10 3/uL) 0.12 H Add Manual Diff NO Immature Gran % (0.0 - 2.0 %) 0.9 Nucleated RBC % (0 - 0 %) 0.0 Nucleated RBCs # (Man) (0.0 - 0.1 x10 3/uL) 0.00 04/29 1140 Chemistry POC Glucose (70 - 110 MG/DL) 155 H Diagnosis, Assessment PlanFree Text A P:DM with neuropathyearly decub ulcer left heelOA/edema left ankleearly ulcer/DTI dorsal left midfoot Labs reviewed. VSSzinc oxide to foot and heelfoam to heelon IV abxon PO gabapentinoffloading bootace wraps to ankle, only when OOB with therapy.zinc oxide interchange with bactroban to dorsal left foot Dr. Pedersen will follow at 1720 RPT #:[id number] OF REPORTPRProgress [id number]:25:00G.[id number] able for patient iuzaEKGKJBFVYOMMWK8300-55-97D28:21:06 [facility] 2022-09-21 07:39:00 [id number] ZJtl7w7UA+/xOlG5UzT4fQDo/aw9b 7M5MZz2Q1o54Wqaq63inbI3vU+j2170-29-05M96:39:00 [facility]Ne[facility] Progress NoteREPORT#:[id number] REPORT STATUS: SignedDATE:09/21/22 TIME: 0739 PATIENT: KARMA ROWLAND UNIT #: [id number]#: [id number] [address] [birth year] AGE: 56 SEX: M ATTEND: Mj Vences MDADM AUTHOR: Barrera Ramírez MD * ALL edits or amendments must be made on the electronic/computer document * SubjectiveChief complaint:Infected footHPI:Patient seen and evaluated on 09/09/2022, note started, records reviewed and orders placed on 09/08/2022, 56-year-old male with history of diabetes mellitus type 2, hypertension and peripheral vascular disease who was initially admitted to acute care with altered mental status and right foot infection/gangrene, 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 Patient had persistent anemia requiring blood transfusion. His fecal occult blood was positive and his creatinine was 1.2 and increased to 1.4 today, laboratories today showed hemoglobin 8.5, platelet 231, blood count 9.1, sodium 135, potassium 4.6, CO2 22, BUN 22, creatinine 1.4. Renal consult was requested for evaluation management of elevated BUN and creatinine and if his decreased GFR iscontributing to his anemia. Patient reports:Yes: complaints. Comments:Patient seen and evaluated, HPI no change from initial, feels okay. Review of SystemsConstitutional:Reports: fatigue. Denies: chills, fever. Skin:Denies: abrasion, bruising. Allergy/Immun:Denies: hives, itching. Eyes:Denies: redness, discharge. ENT:Denies: ear drainage, ear ringing. Respiratory:Denies: non productive cough, SOB. Cardiovascular:Denies: chest pain. Objective GeneralVS/I O:Vital Signs: Date Time Temp Pulse Resp B/P B/P Pulse O2 O2 Flow FiO2 Mean Ox Delivery Rate 09/21 0715 [...] Urine 925 2100 PATIENT WEIGHT: Weight (lb): 167Weight (oz): 12.35Weight (kg): 76.100 MedicationsActive Meds + DC'd Last 24 HrsInsulin Glargine (Semglee) 19 UNIT BEDTIME SUBQ Insulin Glargine (Semglee) 17 UNIT BEDTIME SUBQ (DC) Prednisone (predniSONE) 60 MG DAILY 0600 PO (DC) Daptomycin (CUBICIN 500MG) 500 MG Q24H IV Sodium Chloride (SODIUM CHLORIDE 0.9%) 50 MLHydralazine HCl (APRESOLINE) 75 MG Q8HR PO Insulin Human Lispro (HUMALOG) 10 UNIT AC SUBQ Meropenem (MEROPENEM) 500 MG Q8H IV Sterile Water (WATER FOR INJECTION) 10 MLCarvedilol (COREG) 25 MG C BK DIN PO Gabapentin (NEURONTIN) 100 MG Q8HR PO Oxycodone/Acetaminophen (PERCOCET 5/325MG TAB) 2 TAB Q4H PRN PRN PO Folic Acid (FOLIC ACID) 2 MG DAILY PO Multivitamins (TAB-A-MOHAN) 1 TAB DAILY PO Furosemide (LASIX 20MG INJ) 20 MG BLOOD-DOSE BETWEEN IV (CKD) Sodium Chloride (SODIUM CHLORIDE) 10 ML ASDIR IV Pantoprazole Sodium (PROTONIX) 40 MG Q12HR IV Polyethylene Glycol (MIRALAX) 17 GM DAILY PO Sennosides (Senna Lax 8.6 MG TABLET) 8.6 MG DAILY PO Sodium Chloride (SODIUM CHLORIDE) 10 ML ASDIR PRN IV Amitriptyline HCl (ELAVIL) 25 MG BEDTIME PO Zinc Oxide (ZINC OXIDE 30 GM OINTMENT) 1 APPLIC DAILY TOPICAL Sterile Water (WATER FOR IRRIGATION) DRESSING CHANGE ASDIR PRN IRR Insulin Human Lispro (HUMALOG) 0 AC HS SUBQ Dextrose/Water (DEXTROSE 10% IN WATER) 125 ML ASDIR PRN IV (CKD) Dextrose/Water (DEXTROSE 10% IN WATER) 250 ML ASDIR PRN IV (CKD) Glucagon (GLUCAGON) 1 MG ASDIR PRN IM Lidocaine (LIDODERM) 1 PATCH DAILY TOPICAL Acetaminophen (TYLENOL) 650 MG Q6H PRN PRN PO Bisacodyl (DULCOLAX) 10 MG DAILY PRN PRN RECTAL Docusate Sodium (COLACE) 100 MG Q12H PRN PRN PO Hydralazine HCl (APRESOLINE) 10 MG Q6H PRN PRN IV Ondansetron HCl (ZOFRAN) 4 MG Q6H PRN PRN IV Physical ExamGeneral appearance: alert, no acute distressHead/eyes: atraumatic, normocephalicENT: normal noseNeck: non-tender, supple/no meningismusCardiovascular: normal heart sounds, no rubRespiratory: aerating well, symmetric expansionAbdomen: non-tender, softGenitourinary: no flank painExtremities: non-tender, no edemaMusculoskeletal: no CVA tenderness, no tendernessNeuro/DIRECTOR OPERATING ROOM: alert, 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 Considered stroke alert: noSkin: dry, intact ResultsFindings/Data:Laboratory Tests 09/21 09/20 09/20 09/20 09/20 0530 [...] - 77.0 %) 82.2 H 79.7 H 71.4 Lymph % (Auto) (14.0 - 32.0 %) 11.3 L 13.0 L 16.5 Lenoir % (Auto) (4.8 - 9.0 %) 5.3 6.2 8.4 Eos % (Auto) (0.3 - 3.7 %) 0.2 L 0.2 L 2.4 Baso % (Auto) (0.0 - 2.0 %) 0.1 0.1 0.2 Neut # (Auto) (2.0 - 7.6 x10 3/uL) 10.70 H 9.84 H 9.50 H Lymph # (Auto) (1.0 - 3.8 x10 3/uL) 1.47 1.60 2.19 Lenoir # (Auto) (0.1 - 0.8 x10 3/uL) 0.69 0.76 1.11 H Eos # (Auto) (0.0 - 0.2 x10 3/uL) 0.03 0.03 0.32 H Baso # (Auto) (0.0 - 0.2 x10 3/uL) 0.01 0.01 0.02 Abs Immat Gran (auto) (0.00 - 0.03 x10 3/uL) 0.12 H 0.10 H 0.14 H Add Manual Diff NO NO NO Immature Gran % (0.0 - 2.0 %) 0.9 0.8 1.1 Nucleated RBC % (0 - 0 %) 0.0 0.0 0.0 Nucleated RBCs # (Man) (0.0 - 0.1 x10 3/uL) 0.00 0.00 0.00 Laboratory Tests 09/21 09/20 09/20 [...] (Auto) (14.0 - 32.0 %) 11.3 L Len[place] % (Auto) (4.8 - 9.0 %) 5.3 Eos % (Auto) (0.3 - 3.7 %) 0.2 L Baso % (Auto) (0.0 - 2.0 %) 0.1 Neut # (Auto) (2.0 - 7.6 x10 3/uL) 10.70 H Lymph # (Auto) (1.0 - 3.8 x10 3/uL) 1.47 Lenoir # (Auto) (0.1 - 0.8 x10 3/uL) 0.69 Eos # (Auto) (0.0 - 0.2 x10 3/uL) 0.03 Baso # (Auto) (0.0 - 0.2 x10 3/uL) 0.01 Abs Immat Gran (auto) (0.00 - 0.03 x10 3/uL) 0.12 H Add Manual Diff NO Immature Gran % (0.0 - 2.0 %) 0.9 Nucleated RBC % (0 - 0 %) 0.0 Nucleated RBCs # (Man) (0.0 - 0.1 x10 3/uL) 0.00 Diagnosis, Assessment PlanFree Text A P:Patient seen and evaluated, discussed with care team, images and laboratories reviewed.Diabetes mellitus: Insulin: Monitor blood sugar closely and adjust medications as needed, followed by endocrinology.Hypertension: Blood pressure is not well controlled, increase Coreg to 12.5 mg p.o. twice daily: Monitor blood pressure closely and adjust medications as neededRight foot gangrene/infection status post right BKAAnemia: Status post EGD and colonoscopy which were negative for active GI bleeding, patient had work-up in July 2022 which showed very high B12, normal folate, very low iron saturation but very high ferritin which was likely relatedto his infection, likely patient is very iron deficient, will repeat lab and give IV iron if needed. We will check serum immunofixation.Acute kidney injury: We will check renal bladder ultrasound, check postvoid residual, check urine protein creatinine ratioHypomagnesemia: We will supplement09/10/2022 laboratory this morning showed sodium 135, potassium 4.2, CO2 21, BUN 25, creatinine 1.9 continues to worsen, etiology unclear, however his development some eosinophilia not sure if he is developing AIN, suggest changingcefepime to a different class of antibiotic if possible, will check renal bladder ultrasound09/11/2022 laboratory this morning showed sodium 134, potassium 4.3, CO2 22, BUN 26, creatinine 2 up from 1.9, hopefully creatinine is plateauing, renal ultrasound negative.09/12/2022 laboratory this morning showed sodium 134, potassium 4.2, CO2 20, BUN 31, creatinine 2.4 continues to worsen, discussed with ID, AIN is probably the etiology of the unexplained deterioration of his renal function, antibiotics to be adjusted by infectious disease, will give Solu-Medrol 125 mg IV daily for 3 days. Significant lower extremity edema, will start Lasix 20 mg p.o. twice daily.09.13.22: pt was seen and examined. Very thirsty. serum creatinine is worsening today. Vancomycin was stopped yesterday and Solu medrol was started. Mild hypovolemic hyponatremia. Will DC lasix and monitor his renal functions. BP is well controlled. 09.14.22: pt was seen and examined. Feels better but still thirsty. I stopped hislasix. will start NS at 75 cc for one Leter only. serum creatinine is improving.Received three doses of Solu Medrol a well. BP is on the higher side, likely secondary to steroids. will monitor for now. mild hypovelmic hyponatremia. also could be secondary to hyperglycemia. 09/15/2022 we will give additional dose of Solu-Medrol 125 mg IV today, laboratory this morning showed sodium 132, potassium 4.7, CO2 17, chloride 105, BUN 38, creatinine 2.9, glucose 312, hemoglobin 8.2, platelet 341, blood count 8.7, needs better blood sugar control, if creatinine does not start improving the next couple days will plan for kidney biopsy09/16/2022 laboratory this morning showed sodium 135, potassium 4.5, CO2 20, BUN 60, creatinine 2.7, better down from 2.9, hemoglobin 7.6, platelet 360, blood count 9.5, will give prednisone 80 mg p.o. today, blood pressure is elevated, will add hydralazine 25 mg p.o. 3 times daily, scrotal and LE swelling will giveLasix 40 mg IV x blood pressure still elevated, will increase hydralazine to 50 mg p.o.3 times daily, will give 80 mg of prednisone today, urine output with Lasix 4125, laboratory this morning showed sodium 136, potassium 4.5, CO2 21, BUN 66, creatinine 2.4 down from 2.7, will give 3 more doses of IV Lasix 40 mg every 8 hours09/18/2022 laboratory this morning showed sodium 138, potassium 4.1, CO2 21, BUN 66, creatinine 2.2 continues to improve, urine output 2.7 L, hemoglobin 7.6, platelet 341, blood count 10.6, will give Lasix 40 mg IV every 8 for 3 doses, start prednisone 60 mg p.o. daily for 3 days, increase hydralazine to 75 mg p.o.3 times daily.09/19/2022 blood pressure better, sodium 139, potassium 3.8, CO2 22, BUN 72 up from 66, creatinine 2.3 up from 2.2, will hold off diuretics, urine output reported 2 L, magnesium 1.69 we will give magnesium sulfate 2 g IV x1, continue prednisone.09/20/2022 laboratory this morning showed sodium 136, potassium 4.2, CO2 21, BUN 76, creatinine 2.2 down from 2.3, hemoglobin 7.6, platelet 302, blood count 12.3, continue off diuretics09/21/2022 blood pressure still elevated will increase hydralazine to 100 mg p.o.3 times daily, hemoglobin 7.6, platelet 296, blood count 13, urine output reported 3025, will start prednisone 50 mg p.o. daily for 3 days, sodium 137, potassium 4.6, CO2 22, BUN 75, creatinine 1.9 down from 2.2 continues to improve.Consultants: cardiology, endocrinology, hospitalist, infectious disease, podiatry at 1247 RPT #:[id number] OF REPORTPRProgress qdfj0980-69-95X35:39:00G.[id number] able for patient ybkaCAJCMCMELZYXRI3965-54-58M63:47:15 [facility] 2022-09-21 06:03:00 [id number] JgYi72vZmpNqBK9IDl0bFVXOYwHA+ bse1uLhjP8hLWWUnpwTiUUZdnRY4398-52-07W66:03:00 [facility]Re[facility] Progress NoteREPORT#:[id number] REPORT STATUS: SignedDATE:09/21/22 TIME: 06 PATIENT: KARMA ROWLAND UNIT #: [id number]#: [id number] [address] [birth year] AGE: 56 SEX: M ATTEND: Mj Vences MDADM AUTHOR: Guero Candelaria * ALL edits or amendments must be made on the electronic/computer document * SubjectiveChief complaint:Rehab follow-upDoing betterStates edema improvingEating 75-100% at bedside+ BMDenies DICKENS/N/V/D/CP14 systems reviewed and neg. except that above.History of present illness:56 yo HAM with long h/o DM, and HTN who was admitted for fever, flulike symptomsand altered mental status on 08/18. He was doing well until about 3 days prior toadmission when he noted blister to have formed on the dorsum of his foot. His foot started progressively getting more swollen and the blisters started enlarging and extending to his lateral foot and ankle. He started feeling weak and nauseated. He was noted to have altered mentation and was brought to our ER.He was noted to be in DKA with Blood sugars greater than 600. He was seen by podiatry and surgery for BLE wounds and infection. He was treated in ICU for sepsis and DKA. He underwent incisional and excisional debridement of right footand right ankle by podiatry. Patient also found to have prostate abscess underwent transrectal ultrasound aspiration of abscess and transurethral resection of prostate and unroofing of abscess by urology Dr. Du. Endocrinology treated the DKA and blood sugars much improved. Patient's right foot was not salvageable and patient underwent right BKA by Dr. LEROY on 08/28. Patient blood cultures showed MRSA. Patient continued on antibiotics as per ID. MRI of the pelvis and foot completed. Patient required multiple PRBCs for anemia. Patient was found to have a possible small hematoma of the left calf onultrasound. He complains of pain and swelling of the left ankle. Patient hemodynamically stable and plans are to be transferred to stepdown unit. He is on heparin subcu for VTE. After surgery he is now being mobilized by PT and OT.He is wearing a maxine-tech orthotic for right knee/BKA protection. Prior to admission the patient was independent living in a single-story house with his spouse with a few steps up to front and back door. 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 is at bedside. Patient denies nausea, vomiting, fever, chills, chest pain, shortness of breath with dizziness. He is requiring IV Dilaudid for pain control. Mental status back to baseline. Pt is progressing slowly with therapy d/t weakness and pain, self care deficit, decreased endurance and balance, and decreased functional mobility. Pt requiring acute inpt rehab for multidisciplinary team of nursing, therapy, and physicians. Pt iswilling and able to partici- kathleen in 3 hr/day inpt rehab to d/c home safely. Pt's prior level of function was independent. Objective GeneralVS:Vital Signs: Date Time Temp Pulse Resp B/P B/P Pulse O2 O2 Flow FiO2 Mean Ox Delivery Rate 09/20 2321 97.3 84 14 161/79 105.9 98 Room air 09/20 1924 97.3 88 14 164/84 110.9 97 Room air 09/20 1552 97.9 80 18 168/84 112.0 97 Room air 09/20 0719 97.7 86 18 149/74 98.7 100 Room air PATIENT WEIGHT: Weight (lb): 167Weight (oz): 12.35Weight (kg): 76.100 Medications:Active Meds + DC'd Last 24 HrsInsulin Glargine (Semglee) 19 UNIT BEDTIME SUBQ Insulin Glargine (Semglee) 17 UNIT BEDTIME SUBQ (DC) Prednisone (predniSONE) 60 MG DAILY 0600 PO (DC) Daptomycin (CUBICIN 500MG) 500 MG Q24H IV Sodium Chloride (SODIUM CHLORIDE 0.9%) 50 MLHydralazine HCl (APRESOLINE) 75 MG Q8HR PO Insulin Human Lispro (HUMALOG) 10 UNIT AC SUBQ Meropenem (MEROPENEM) 500 MG Q8H IV Sterile Water (WATER FOR INJECTION) 10 MLCarvedilol (COREG) 25 MG C BK DIN PO Gabapentin (NEURONTIN) 100 MG Q8HR PO Oxycodone/Acetaminophen (PERCOCET 5/325MG TAB) 2 TAB Q4H PRN PRN PO Folic Acid (FOLIC ACID) 2 MG DAILY PO Multivitamins (TAB-A-MOHAN) 1 TAB DAILY PO Furosemide (LASIX 20MG INJ) 20 MG BLOOD-DOSE BETWEEN IV (CKD) Sodium Chloride (SODIUM CHLORIDE) 10 ML ASDIR IV Pantoprazole Sodium (PROTONIX) 40 MG Q12HR IV Polyethylene Glycol (MIRALAX) 17 GM DAILY PO Sennosides (Senna Lax 8.6 MG TABLET) 8.6 MG DAILY PO Sodium Chloride (SODIUM CHLORIDE) 10 ML ASDIR PRN IV Amitriptyline HCl (ELAVIL) 25 MG BEDTIME PO Zinc Oxide (ZINC OXIDE 30 GM OINTMENT) 1 APPLIC DAILY TOPICAL Sterile Water (WATER FOR IRRIGATION) DRESSING CHANGE ASDIR PRN IRR Insulin Human Lispro (HUMALOG) 0 AC HS SUBQ Dextrose/Water (DEXTROSE 10% IN WATER) 125 ML ASDIR PRN IV (CKD) Dextrose/Water (DEXTROSE 10% IN WATER) 250 ML ASDIR PRN IV (CKD) Glucagon (GLUCAGON) 1 MG ASDIR PRN IM Lidocaine (LIDODERM) 1 PATCH DAILY TOPICAL Acetaminophen (TYLENOL) 650 MG Q6H PRN PRN PO Bisacodyl (DULCOLAX) 10 MG DAILY PRN PRN RECTAL Docusate Sodium (COLACE) 100 MG Q12H PRN PRN PO Hydralazine HCl (APRESOLINE) 10 MG Q6H PRN PRN IV Ondansetron HCl (ZOFRAN) 4 MG Q6H PRN PRN IV Functional ProgressFunctional progress:PT daily note comment: S: PT MET IN ROOM IN AGREEABLE TO INITIATE SESSION, NO REPORTS OF PAIN O: PERFORMING MOBILITY MOD I 400 FT WITHOUT DIFFICULTY AT THIS TIME. PERFORMING MOVEO AT 8% INCLINE PERFORMING 2 MIN SQUATS X 4 HAVING GOOD CONTROL UNTIL ABOUT 45-15 SEC LEFT INSET HAVING LIMITED ENDURANCE. PERFORMING SIT TO STANDS IN //BARS X 5 WITH SBA, NEEDING CUES TO TAKE HIS TIME, REST BETWEEN ATTEMPTS D/T LIMITED ENDURANCE. ATTEMPTING HEEL RAISES IN // BARS 3 X 10-15 WITH LIMITED HEEL LIFT OFF AT THISTIME. ALSO PERFORMING LAQS WITH 4# ANKLE WEIGHT ON LLE WITH QUAD SET SQUEEZE AT FULL EXTENSION PERFORMING 4 X 10. PT EDUCATED ON HEP WITH RLE QUAD SETS FOR LIMITING ATROPHY WITH RLE WHEN READY TO INITIATE PROTHETIC TRAINING FOR MOBILITY. PT PERFORMING PIVOT TRANSFERS NEEDING CGA FOR SAFETYAND CONTROL. ATTEMPTING HOP STEPS IN // BARS INITIALLY NEEDING SBA BUT HAVING LIMITED ENDURANCE HAIVNG KNEE BUCKLE BECOMING TOTAL DEPENDENT NEEDING ASSIST BACK TO W/C. SECOND ATTEMPT PERFORMING HOP STEPS IN // BARS PERFORMING 4 STEPS FORWARD/BACKWARD WITH MIN A FOR SAFETY. Physical ExamGeneral appearance: alert, awakePsych: alert, normal affect, oriented x 3HEENT: anicteric, sclera clearNeck: supple, no JVDCardiovascular: S1/S2, no murmurRespiratory: aerating well, clear bilaterallyAbdomen: bowel sounds present, non-distended, soft, non-tenderSkin: no rash, R BKA HEALING. L ankle/foot wrapped with kerlixMusculoskeletal - general: Musculoskeletal - general: swelling (LLE, calve NT, homans neg), BUE 5/5, LLE4/5, R hip 3-Neuro/DIRECTOR OPERATING ROOM: alert, oriented X 3, CNII-XII intact ResultsFindings/Data:Laboratory Tests 09/21 09/20 09/20 09/20 09/20 0530 [...] (14.0 - 32.0 %) 13.0 L 16.5 Len[place] % (Auto) (4.8 - 9.0 %) 6.2 8.4 Eos % (Auto) (0.3 - 3.7 %) 0.2 L 2.4 Baso % (Auto) (0.0 - 2.0 %) 0.1 0.2 Neut # (Auto) (2.0 - 7.6 x10 3/uL) 9.84 H 9.50 H Lymph # (Auto) (1.0 - 3.8 x10 3/uL) 1.60 2.19 [place] # (Auto) (0.1 - 0.8 x10 3/uL) 0.76 1.11 H Eos # (Auto) (0.0 - 0.2 x10 3/uL) 0.03 0.32 H Baso # (Auto) (0.0 - 0.2 x10 3/uL) 0.01 0.02 Abs Immat Gran (auto) (0.00 - 0.03 x10 3/uL) 0.10 H 0.14 H Add Manual Diff NO NO Immature Gran % (0.0 - 2.0 %) 0.8 1.1 Nucleated RBC % (0 - 0 %) 0.0 0.0 Nucleated RBCs # (Man) (0.0 - 0.1 x10 3/uL) 0.00 0.00 Diagnosis, Assessment PlanFree Text A P:Assessment:Severe Gas gangrene right foot and right ankle associated with osteomyelitis andnecrotizing fasciitisS/p surgical debridement and washout08/28: S/p right BKA-Dr. Greenberggnificant impairment in self-care, ADLs and functional mobilityImpaired mobility and gaitAcute postoperative pain right BKADiabetic polyneuropathyDKA, DM 2, poorly controlled, A1c greater than 14PADMRSA bacteremia/sepsis-treated on acuteAKISevere hyponatremia-resolvedHTNAcute on chronic anemia requiring multiple transfusions, possible GI bleedLeft calf hematomaEdema and clinical arthritis left ankleEarly decubitus to left heel/DTI dorsal left midfootProstatic abscess 08/26: S/p transrectal ultrasound aspiration of abscess and transurethral resection of prostate and unroofing of abscess09/12: Echo: EF 55-59%, grade 1 diastolic dysfunction09/02: JIMENA negative for vegetationMRSA OF NARES4:s/p EGD and colonoscopy. EGD showed mild gastritis. Colonoscopy showed rectal polyp that was resected by snare (tubular adenoma)-repeat colonoscopy in 5 years Plan:-PLOF: Independent with transfers and gait-Amputee rehab program-Continue PT and OT-15/12 rehabilitation nursing care.-Case management for safe discharge planning.-Decubitus prevention-Early decubitus to left heel/DTI dorsal left midfoot-zinc oxide to the foot, foam, offloading, podiatry managing-DVT prophylaxis-SCD left leg-Strict fall and safety precautions-Work on bed mobility, transfer training, ADLs, pre-gait and gait exercises-Increase endurance and strength-Monitor pain with therapies-OOB to chair-Monitor p.o. intake and nutrition, albumin 1.3, prealbumin less than 5, dietaryconsultation, protein supplements to promote vzjrstn-Skqqthue-K0c 14, tight glycemia control- endocrine on board, insulin adjustments-Endocrinology, ID, podiatry, cardiology, IM consulted-Pain management adjusting pain medications-Anemia, patient required multiple units of PRBCs on acute, FOBT positive-IV Protonix-consult GI-serial H H-no evidence of gross bleeding-discussed with Dr. TrinidadYpinrjdl-Pvwjosfltipz-pagutcxhm lblfldey-BVK-nglxep-CW Senokot and MiraLAX, DSP-MRSA OF NARES on Bactroban protocol-LLE edema-venous Doppler with complex heterogeneous hypoechoic fluid collectionin the left calf region measuring 8.4, 2.8, 2.5 cm suggestive of hematoma. On low-dose Lasix. Joan wrap LLE-LE edema could be related to hypoalbuminemia leading to third spacing-edema improving-Generalized edema-some shortness of breath and abdominal distention-cardiology gave a dose of IV Lasix-monitor urine output, daily weights-SOB resolved-09/05-venous Doppler of LLE-negative for DVT-Joan wrap dressing and mlpeswyvv-Jhkxby-msaeemgqqr 8.3, 7.7, 8.2, 7.6, 8 transfused 2 units of PRBC on 09/05-09/08: s/p EGD and colonoscopy. EGD showed mild gastritis. Colonoscopy showed rectal polyp that was resected by snare. Anemia likely secondary to chronic kidney disease. Consult renal.-Pathology of polyp came back as tubular adenoma. recommend repeating colonoscopy in 5 years as per GI-Consider video capsule endoscopy as outpt if evidence of dropping H/H-Renal ultrasound negative-09/19/2022 blood pressure better, sodium 139, potassium 3.8, CO2 22, BUN 72 up from 66, creatinine 2.3 up from 2.2, will hold off diuretics, urine output reported 2 L, magnesium 1.69 we will give magnesium sulfate 2 g IV x1, continue prednisone-as per renal-MRSA bacteremia and prostatic abscess-WBC 13.3-monitor on Merrem and Daptomycintil 09/24 as per ID-Lasix as per nephrology-Completed Qwak-Zfkyqf-3/21: Echo-EF 55-60%, indeterminate diastolic function parameters as per cardio-BP continues to be elevated, Hydralazine increased to 75 mg TID, cont Metoprolol to 25 mg BID-BS better but likely to increase with re-initiation of steroids x3 days startedby Nephrology for AIN-Endo adjusting insulin-Car transfer training 09/23-BUN climbing, but creatinine improving. Diuretics per renal-Check labs 09/21-Advance therapies as tolerated-discussed treatment plan with patient and -Right EZW-kgpgojx-jxeekcna resolved, dressings changed today-no bleeding after heparin discontinued, SCD to left leg-Patient continue to make progress. Emphasizing transfers with rolling walker and residual limb care. PM RPlease see team note.Plan and goals discussed with the patient. I agree with the teams findingELOS- [09/24] on IV antibiotics until C-Home with -Home healthDME-bedside commode, sliding board, wheelchair, drop arm bedside commode Total time 33 minutes greater than 50% of the time spent examining patient, discussing with patient about improvement in renal function, on steroids, medical issues, anemia, discharge plans, rehab plan of care, goals, therapies, progress, labs, medications. EMR and MAR is reviewed. All questions answeredRehab attestation:Face to face exam completed. Treatment plan discussed with patient. Meets continued stay criteria. Agree with interdisciplinary treatment plan. at 1650 RPT #:[id number] OF REPORTPRProgress [id number]:03:00G.[id number] able for patient [id number]:51:10 [facility] 2022-09-20 18:00:00 [id number]:00:00 [facility] HospitalCardiology Progress NoteREPORT#:[id number] REPORT STATUS: SignedDATE:09/20/22 TIME: 1800 PATIENT: KARMA ROWLAND UNIT #: [id number]#: [id number] ROOM[facility]BED: [facility] [place]DOB: [birth year] AGE: 56 SEX: M ATTEND: Mj Vences MDADM AUTHOR: Napoleon Parham MD * ALL edits or amendments must be made on the electronic/computer document * SubjectiveChief complaint:weaknessComments:No new symptoms, feeling better Objective GeneralVS/I O:24 hour I O ending at 0700: 09/20 0700 09/19 1900 Intake Total 240 960 Output Total 750 1500 Balance -510 -540 Intake, Oral 240 960 Number 0 0 Incontinent Voids Number Voids 0 0 Output, Urine 750 1500 Vital Signs: Date Time Temp Pulse Resp B/P B/P Pulse O2 O2 Flow FiO2 Mean Ox Delivery Rate 09/20 1552 97.9 80 18 168/84 112.0 97 Room air 09/20 0719 97.7 86 18 149/74 98.7 100 Room air 09/20 0003 97.9 85 16 147/75 99.3 98 09/19 1919 98.1 90 16 157/43 81.1 98 PATIENT WEIGHT: Weight (lb): 167Weight (oz): 12.35Weight (kg): 76.100 Medications:Active Meds + DC'd Last 24 HrsInsulin Glargine (Semglee) 19 UNIT BEDTIME SUBQ Insulin Glargine (Semglee) 17 UNIT BEDTIME SUBQ (DC) Prednisone (predniSONE) 60 MG DAILY 0600 PO Daptomycin (CUBICIN 500MG) 500 MG Q24H IV Sodium Chloride (SODIUM CHLORIDE 0.9%) 50 MLHydralazine HCl (APRESOLINE) 75 MG Q8HR PO Insulin Human Lispro (HUMALOG) 10 UNIT AC SUBQ Meropenem (MEROPENEM) 500 MG Q8H IV Sterile Water (WATER FOR INJECTION) 10 MLCarvedilol (COREG) 25 MG C BK DIN PO Gabapentin (NEURONTIN) 100 MG Q8HR PO Oxycodone/Acetaminophen (PERCOCET 5/325MG TAB) 2 TAB Q4H PRN PRN PO Folic Acid (FOLIC ACID) 2 MG DAILY PO Multivitamins (TAB-A-MOHAN) 1 TAB DAILY PO Furosemide (LASIX 20MG INJ) 20 MG BLOOD-DOSE BETWEEN IV (CKD) Sodium Chloride (SODIUM CHLORIDE) 10 ML ASDIR IV Pantoprazole Sodium (PROTONIX) 40 MG Q12HR IV Polyethylene Glycol (MIRALAX) 17 GM DAILY PO Sennosides (Senna Lax 8.6 MG TABLET) 8.6 MG DAILY PO Sodium Chloride (SODIUM CHLORIDE) 10 ML ASDIR PRN IV Amitriptyline HCl (ELAVIL) 25 MG BEDTIME PO Zinc Oxide (ZINC OXIDE 30 GM OINTMENT) 1 APPLIC DAILY TOPICAL Sterile Water (WATER FOR IRRIGATION) DRESSING CHANGE ASDIR PRN IRR Insulin Human Lispro (HUMALOG) 0 AC HS SUBQ Dextrose/Water (DEXTROSE 10% IN WATER) 125 ML ASDIR PRN IV (CKD) Dextrose/Water (DEXTROSE 10% IN WATER) 250 ML ASDIR PRN IV (CKD) Glucagon (GLUCAGON) 1 MG ASDIR PRN IM Lidocaine (LIDODERM) 1 PATCH DAILY TOPICAL Acetaminophen (TYLENOL) 650 MG Q6H PRN PRN PO Bisacodyl (DULCOLAX) 10 MG DAILY PRN PRN RECTAL Docusate Sodium (COLACE) 100 MG Q12H PRN PRN PO Hydralazine HCl (APRESOLINE) 10 MG Q6H PRN PRN IV Ondansetron HCl (ZOFRAN) 4 MG Q6H PRN PRN IV Physical ExamGeneral appearance: alert, awake, oriented, no acute distressNeck: no bruit/NL carotids, no JVDCardiovascular: CV assessment: regular rate and rhythm, no ectopy, no gallopRespiratory: clear to auscultation, no distressAbdomen: soft, non-tenderGenitourinary: urinary catheterLower extremity: LE assessment: edema, normal temperatureNeuro/DIRECTOR OPERATING ROOM: alert, oriented X 3 Considered stroke alert: noWound/incision: Location:right bkaPsychiatry: normal affect, normal judgment/insight, normal mood ResultsFindings/Data:Laboratory Tests 09/20 09/20 09/20 09/20 09/20 1555 [...] (Auto) (14.0 - 32.0 %) 13.0 L [place] % (Auto) (4.8 - 9.0 %) 6.2 Eos % (Auto) (0.3 - 3.7 %) 0.2 L Baso % (Auto) (0.0 - 2.0 %) 0.1 Neut # (Auto) (2.0 - 7.6 x10 3/uL) 9.84 H Lymph # (Auto) (1.0 - 3.8 x10 3/uL) 1.60 [place] # (Auto) (0.1 - 0.8 x10 3/uL) 0.76 Eos # (Auto) (0.0 - 0.2 x10 3/uL) 0.03 Baso # (Auto) (0.0 - 0.2 x10 3/uL) 0.01 Abs Immat Gran (auto) (0.00 - 0.03 x10 3/uL) 0.10 H Add Manual Diff NO Immature Gran % (0.0 - 2.0 %) 0.8 Nucleated RBC % (0 - 0 %) 0.0 Nucleated RBCs # (Man) (0.0 - 0.1 x10 3/uL) 0.00 Laboratory Tests 09/20 0505 Chemistry Magnesium (1.80 - 2.40 mg/dL) 2.05 Diagnosis, Assessment PlanConsultants: cardiology, endocrinology, hospitalist, infectious disease, podiatry Free Text DxA P NotesFree Text DxA P Notes:Impression: 1. Debility2. Infected right foot status post BKA3. Bacteremia4. Diabetes5. Hypertension 6. Anemia7. Acute Diastolic CHF 07/2022: Echocardiogram with normal LVEF, grade 1 diastolic dysfunction, mildly dilated LA, and no significant valvular abnormalities Recommendation: Patient initially presented with DKA and sepsis. Diagnosed with right foot infection, underwent I D, now status post BKA. Patient had persistent bacteremia with MRSA, underwent JIMENA with negative findings of endocarditis. Patient now transferred to rehab for physical therapy. Known cardiac history ofhypertension and hyperlipidemia. Vital signs stable. Echocardiogram with normal LVEF, grade 1 diastolic dysfunction, mildly dilated LA, and no significant valvular abnormalities. Continue to monitor blood pressure trend. Continue wound care and IV antibiotic therapy. Continue PT/OT. Supportive care. 09/04: Patient complaining of shortness of breath, abdominal distention and lowerextremity edema. Renal function and electrolytes stable. Will give one-time dose of IV Lasix 40 mg. Blood pressure stable. Pending abdominal x-ray. Monitor intake and output. Check BMP in the morning. Supportive care. Plan ofcare discussed with patient, RN and Dr. Parham. 09/05: Patient responded well to IV Lasix, good urine output and improvement in shortness of breath. Chest x-ray ordered. Currently on Lasix 20 mg p.o. daily. Continue monitor renal function and electrolytes. Pending lower extremity Doppler for lower extremity edema. Continue PT/OT. Supportive care. Plan of care discussed with patient, RN and Dr. Parham. 09/08: Blood pressure has been elevated, started on Coreg 3.125 mg twice daily. Continue monitor blood pressure trend and adjust medication as needed. Still having left lower extremity edema, venous Doppler negative for DVT. continue gentle diuresis with Lasix 20 mg p.o. daily. Recommend Joan wrap. Patient remains anemic, plan for EGD/colonoscopy today. Supportive care. Plan of care discussed with patient, family, RN and Dr. Parham. 09/09: Patient doing well status post EGD/colonoscopy, negative findings for GI bleed. Blood pressure improving, increased on Coreg to 12.5 mg twice daily. Elevated creatinine noted, nephrology following. No new cardiac complaint. Continue wound care. Continue PT/OT. Supportive care. Plan of care discussed with patient, RN and Dr. Parham. 09/10: Blood pressure remained stable on current regimen of Coreg. Patient continue to have left lower extremity edema. Currently on Lasix 20 mg daily. Creatinine 1.9 today, continue to monitor. Patient's albumin level was 1.3, it is possible that patient's lower extremity edema could be related to hypoalbuminemia leading to third spacing. Continue PT/OT. Supportive care. Plan of care discussed with patient, RN and Dr. Parham. 09/11: Patient doing well from cardiac standpoint. Blood pressure well controlled. Improvement in lower extremity edema with elevating leg while in bed. Creatinine 2.0 today. Denies shortness of breath. Will hold diuretic for now and monitor renal function. Supportive care. Plan of care discussed with patient, RN and Dr. Parham. 09/12: Creatinine remains elevated at 2.4 today, antibiotic regimen also being adjusted. Patient still with lower extremity edema and rales on physical examination. Will check chest x-ray and limited echocardiogram for further evaluation. Check BNP. Continue hold diuretic for now. Supportive care. Planof care discussed with patient, RN and Dr. Parham. 09/15: Repeat echocardiogram showed LVEF of 55 to 60%, no regional wall motion abnormalities, left ventricular diastolic function parameters are indeterminate,mildly dilated LA, and no pericardial effusion. BNP elevated 297. Continue to hold diuretic due to Elevated creatinine, nephrology following and may consider renal biopsy. Continue to monitor fluid volume status. Overall improvement in lower extremity with Joan wrap. Continue physical therapy. Supportive care. Plan of care discussed with patient, RN and Dr. Parham. 09/16: Blood pressure slightly elevated, started on hydralazine 25 mg every 8 hours. Continue carvedilol monitor blood pressure trend. Cr. 2.7 today, continue monitor. Tolerating physical therapy. Euvolemic by physical examination. Supportive care. Plan of care discussed with patient, RN and Dr. Parham. 09/17: Blood pressure remains elevated, likely related to steroid therapy. Hydralazine increased to 50 mg 3 times daily. Nephrology managing diuretic therapy. Continue monitor renal function and electrolytes. Improvement in lower extremity swelling. Patient denies chest pain or shortness of breath. Tolerating PT/OT. Supportive care. Plan of care discussed with patient, RN andDr. Parham. 09/18: Blood pressure remains elevated due to steroid therapy. Continue monitor blood pressure trend, hydralazine increased to 75 mg 3 times daily. Responding to diuretic regimen with Lasix, good urine output. Creatinine improving, 2.2 today. Continue to monitor fluid volume status. Continue physical therapy. Supportive care. Plan of care discussed with patient, RN and Dr. Parham. 09/19: Blood pressure improving, continue hydralazine and carvedilol. Overall improvement in fluid volume status. No new cardiac complaint. Continue steroidtaper per nephrology. Progressing in therapy. Discharge planning. Supportive care. Plan of care discussed with patient, RN and Dr. Parham. 09/20: Patient doing much better since started on steroid therapy, creatinine is slowly improving, blood pressure overall improving, nephrology is adjusting antihypertensive medication regimen, diuretic regimen per nephrology, overall stable cardiac status, discussed with patient and . at 1923 [facility] #:[id number] OF REPORTPRProgress [id number]:00:00G.[id number] able for patient [id number]:24:07 [facility] 2022-09-20 16:11:00 [id number] [id number]+[id number]:11:00 [facility] ([facility])Endocrinology Progress NoteREPORT#:[id number] REPORT STATUS: SignedDATE:09/20/22 TIME: 1611 PATIENT: KARMA ROWLAND UNIT #: [id number]#: [id number] [address] [birth year] AGE: 56 SEX: M ATTEND: Mj Vences MDADM AUTHOR: Braxton Chapin MD * ALL edits or amendments must be made on the electronic/computer document * SubjectivePatient reports: no complaints Objective GeneralVS:Last Documented: Result Date Time Pulse Ox 97 09/20 1552 B/P 168/84 09/20 1552 B/P Mean 112.0 09/20 1552 O2 Delivery Room air 09/20 1552 Temp 36.6 09/20 1552 Pulse 80 09/20 1552 Resp 18 09/20 1552 O2 Flow Rate 2 09/08 1322 PATIENT WEIGHT: Weight (lb): 167Weight (oz): 12.35Weight (kg): 76.100 Medications:Active Meds + DC'd Last 24 HrsInsulin Glargine (Semglee) 17 UNIT BEDTIME SUBQ Prednisone (predniSONE) 60 MG DAILY 0600 PO Daptomycin (CUBICIN 500MG) 500 MG Q24H IV Sodium Chloride (SODIUM CHLORIDE 0.9%) 50 MLHydralazine HCl (APRESOLINE) 75 MG Q8HR PO Insulin Human Lispro (HUMALOG) 10 UNIT AC SUBQ Meropenem (MEROPENEM) 500 MG Q8H IV Sterile Water (WATER FOR INJECTION) 10 MLCarvedilol (COREG) 25 MG C BK DIN PO Gabapentin (NEURONTIN) 100 MG Q8HR PO Oxycodone/Acetaminophen (PERCOCET 5/325MG TAB) 2 TAB Q4H PRN PRN PO Folic Acid (FOLIC ACID) 2 MG DAILY PO Multivitamins (TAB-A-MOHAN) 1 TAB DAILY PO Furosemide (LASIX 20MG INJ) 20 MG BLOOD-DOSE BETWEEN IV (CKD) Sodium Chloride (SODIUM CHLORIDE) 10 ML ASDIR IV Pantoprazole Sodium (PROTONIX) 40 MG Q12HR IV Polyethylene Glycol (MIRALAX) 17 GM DAILY PO Sennosides (Senna Lax 8.6 MG TABLET) 8.6 MG DAILY PO Sodium Chloride (SODIUM CHLORIDE) 10 ML ASDIR PRN IV Amitriptyline HCl (ELAVIL) 25 MG BEDTIME PO Zinc Oxide (ZINC OXIDE 30 GM OINTMENT) 1 APPLIC DAILY TOPICAL Sterile Water (WATER FOR IRRIGATION) DRESSING CHANGE ASDIR PRN IRR Insulin Human Lispro (HUMALOG) 0 AC HS SUBQ Dextrose/Water (DEXTROSE 10% IN WATER) 125 ML ASDIR PRN IV (CKD) Dextrose/Water (DEXTROSE 10% IN WATER) 250 ML ASDIR PRN IV (CKD) Glucagon (GLUCAGON) 1 MG ASDIR PRN IM Lidocaine (LIDODERM) 1 PATCH DAILY TOPICAL Acetaminophen (TYLENOL) 650 MG Q6H PRN PRN PO Bisacodyl (DULCOLAX) 10 MG DAILY PRN PRN RECTAL Docusate Sodium (COLACE) 100 MG Q12H PRN PRN PO Hydralazine HCl (APRESOLINE) 10 MG Q6H PRN PRN IV Ondansetron HCl (ZOFRAN) 4 MG Q6H PRN PRN IV Physical ExamGeneral appearance: alert, awake Diagnosis, Assessment PlanHospital course to date:Laboratory Tests: 09/20 09/20 09/20 09/20 09/19 1140 0922 0505 0458 1921Chemistry Sodium (134 - 147 mEq/L) 136 Potassium [...] 5.4 H Magnesium (1.80 - 2.40 mg/dL) 2.05Hematology WBC (4.5 - 11.0 x10 3/uL) 12.3 [...] (Auto) (14.0 - 32.0 %) 13.0 L [place] % (Auto) (4.8 - 9.0 %) 6.2 Eos % (Auto) (0.3 - 3.7 %) 0.2 L Baso % (Auto) (0.0 - 2.0 %) 0.1 Neut # (Auto) (2.0 - 7.6 x10 3/uL) 9.84 H Lymph # (Auto) (1.0 - 3.8 x10 3/uL) 1.60 [place] # (Auto) (0.1 - 0.8 x10 3/uL) 0.76 Eos # (Auto) (0.0 - 0.2 x10 3/uL) 0.03 Baso # (Auto) (0.0 - 0.2 x10 3/uL) 0.01 Abs Immat Gran (auto) (0.00 - 0.03 0.10 Hx10 3/uL) Add Manual Diff NO Immature Gran % (0.0 - 2.0 %) 0.8 Nucleated RBC % (0 - 0 %) 0.0 Nucleated RBCs # (Man) (0.0 - 0.1 0.00x10 3/uL) Laboratory Tests: 09/19 09/19 09/19 09/18 09/18 1133 0501 9786 3092 1933Chemistry Sodium (134 - 147 mEq/L) 139 Potassium [...] H Magnesium (1.80 - 2.40 mg/dL) 1.69 LHematology WBC (4.5 - 11.0 x10 3/uL) 13.3 [...] % (Auto) (14.0 - 32.0 %) 16.5 [place] % (Auto) (4.8 - 9.0 %) 8.4 Eos % (Auto) (0.3 - 3.7 %) 2.4 Baso % (Auto) (0.0 - 2.0 %) 0.2 Neut # (Auto) (2.0 - 7.6 x10 3/uL) 9.50 H Lymph # (Auto) (1.0 - 3.8 x10 3/uL) 2.19 [place] # (Auto) (0.1 - 0.8 x10 3/uL) 1.11 H Eos # (Auto) (0.0 - 0.2 x10 3/uL) 0.32 H Baso # (Auto) (0.0 - 0.2 x10 3/uL) 0.02 Abs Immat Gran (auto) (0.00 - 0.03 0.14 Hx10 3/uL) Add Manual Diff NO Immature Gran % (0.0 - 2.0 %) 1.1 Nucleated RBC % (0 - 0 %) 0.0 Nucleated RBCs # (Man) (0.0 - 0.1 0.00x10 3/uL) 09/18 1611 Chemistry POC Glucose (70 [...] % (Auto) (14.0 - 32.0 %) 17.4 [place] % (Auto) (4.8 - 9.0 %) 6.9 Eos % (Auto) (0.3 - 3.7 %) 0.1 L Baso % (Auto) (0.0 - 2.0 %) 0.1 Neut # (Auto) (2.0 - 7.6 x10 3/uL) 7.91 H Lymph # (Auto) (1.0 - 3.8 x10 3/uL) 1.85 [place] # (Auto) (0.1 - 0.8 x10 3/uL) 0.73 Eos # (Auto) (0.0 - 0.2 x10 3/uL) 0.01 Baso # (Auto) (0.0 - 0.2 x10 3/uL) 0.01 Abs Immat Gran (auto) (0.00 - 0.03 x10 3/uL) 0.10 H Add Manual Diff NO Immature Gran % (0.0 - 2.0 %) 0.9 Nucleated RBC % (0 - 0 %) 0.0 Nucleated RBCs # (Man) (0.0 - 0.1 x10 3/uL) 0.00 Laboratory Tests: 09/17 09/17 09/17 09/17 09/17 [...] (Auto) (14.0 - 32.0 %) 10.2 L [place] % (Auto) (4.8 - 9.0 %) 2.9 L Eos % (Auto) (0.3 - 3.7 %) 0.0 L Baso % (Auto) (0.0 - 2.0 %) 0.1 Neut # (Auto) (2.0 - 7.6 x10 3/uL) 7.58 Lymph # (Auto) (1.0 - 3.8 x10 3/uL) 0.91 L [place] # (Auto) (0.1 - 0.8 x10 3/uL) 0.26 Eos # (Auto) (0.0 - 0.2 x10 3/uL) 0.00 Baso # (Auto) (0.0 - 0.2 x10 3/uL) 0.01 Abs Immat Gran (auto) (0.00 - 0.03 x10 3/uL) 0.14 H Add Manual Diff NO Immature Gran % (0.0 - 2.0 %) 1.6 Nucleated RBC % (0 - 0 %) 0.0 Nucleated RBCs # (Man) (0.0 - 0.1 x10 3/uL) 0.00 Laboratory Tests: 09/16 09/16 09/16 09/16 1549 1441 1110 0553 Chemistry POC Glucose (70 - 110 MG/DL) 62 L 60 L 148 H 195 H 09/16 09/15 0455 1937 Chemistry Sodium [...] % (Auto) (14.0 - 32.0 %) 18.6 [place] % (Auto) (4.8 - 9.0 %) 6.7 Eos % (Auto) (0.3 - 3.7 %) 0.2 L Baso % (Auto) (0.0 - 2.0 %) 0.1 Neut # (Auto) (2.0 - 7.6 x10 3/uL) 6.99 Lymph # (Auto) (1.0 - 3.8 x10 3/uL) 1.77 [place] # (Auto) (0.1 - 0.8 x10 3/uL) 0.64 Eos # (Auto) (0.0 - 0.2 x10 3/uL) 0.02 Baso # (Auto) (0.0 - 0.2 x10 3/uL) 0.01 Abs Immat Gran (auto) (0.00 - 0.03 x10 3/uL) 0.10 H Add Manual Diff NO Immature Gran % (0.0 - 2.0 %) 1.0 Nucleated RBC % (0 - 0 %) 0.0 Nucleated RBCs # (Man) (0.0 - 0.1 x10 3/uL) 0.00 Laboratory Tests: 09/15 09/15 09/15 09/15 1640 1304 1154 0519 Chemistry POC Glucose (70 - 110 MG/DL) 137 H 126 H 309 H Urines Urine Color (YEL/STRAW) YELLOW Urine Appearance (CLEAR) SL CLOUDY Urine pH (5.0 - 7.0) 5.0 Ur Specific [place] (1.005 - 1.030) 1.013 Urine Protein (NEGATIVE) [...] (Auto) (14.0 - 32.0 %) 11.3 L [place] % (Auto) (4.8 - 9.0 %) 3.2 L Eos % (Auto) (0.3 - 3.7 %) 0.0 L Baso % (Auto) (0.0 - 2.0 %) 0.1 Neut # (Auto) (2.0 - 7.6 x10 3/uL) 7.35 Lymph # (Auto) (1.0 - 3.8 x10 3/uL) 0.98 L [place] # (Auto) (0.1 - 0.8 x10 3/uL) 0.28 Eos # (Auto) (0.0 - 0.2 x10 3/uL) 0.00 Baso # (Auto) (0.0 - 0.2 x10 3/uL) 0.01 Abs Immat Gran (auto) (0.00 - 0.03 x10 3/uL) 0.04 H Add Manual Diff NO Immature Gran % (0.0 - 2.0 %) 0.5 Nucleated RBC % (0 - 0 %) 0.0 Nucleated RBCs # (Man) (0.0 - 0.1 x10 3/uL) 0.00 Microbiology: Date/Time Procedure - Status Source Growth 09/15 514 MRSA DNA Surveillance Screen - COMP NASAL Laboratory Tests: 09/14 09/14 09/14 09/14 09/13 1130 0736 0557 0588 1937Chemistry Sodium (134 - 147 mEq/L) 132 L [...] H Calcium (8.0 - 10.5 mg/dL) 7.5 LHematology WBC (4.5 - 11.0 x10 3/uL) 9.5 [...] (Auto) (14.0 - 32.0 %) 13.9 L [place] % (Auto) (4.8 - 9.0 %) 5.1 Eos % (Auto) (0.3 - 3.7 %) 0.0 L Baso % (Auto) (0.0 - 2.0 %) 0.1 Neut # (Auto) (2.0 - 7.6 x10 3/uL) 7.58 Lymph # (Auto) (1.0 - 3.8 x10 3/uL) 1.31 [place] # (Auto) (0.1 - 0.8 x10 3/uL) 0.48 Eos # (Auto) (0.0 - 0.2 x10 3/uL) 0.00 Baso # (Auto) (0.0 - 0.2 x10 3/uL) 0.01 Abs Immat Gran (auto) (0.00 - 0.03 0.07 Hx10 3/uL) Add Manual Diff NO Immature Gran % (0.0 - 2.0 %) 0.7 Nucleated RBC % (0 - 0 %) 0.0 Nucleated RBCs # (Man) (0.0 - 0.1 0.00x10 3/uL) 09/13 1629 Chemistry POC Glucose (70 [...] (Auto) (14.0 - 32.0 %) 10.4 L [place] % (Auto) (4.8 - 9.0 %) 3.5 L Eos % (Auto) (0.3 - 3.7 %) 0.0 L Baso % (Auto) (0.0 - 2.0 %) 0.1 Neut # (Auto) (2.0 - 7.6 x10 3/uL) 8.34 H Lymph # (Auto) (1.0 - 3.8 x10 3/uL) 1.02 [place] # (Auto) (0.1 - 0.8 x10 3/uL) 0.34 Eos # (Auto) (0.0 - 0.2 x10 3/uL) 0.00 Baso # (Auto) (0.0 - 0.2 x10 3/uL) 0.01 Abs Immat Gran (auto) (0.00 - 0.03 x10 3/uL) 0.07 H Add Manual Diff NO Immature Gran % (0.0 - 2.0 %) 0.7 Nucleated RBC % (0 - 0 %) 0.0 Nucleated RBCs # (Man) (0.0 - 0.1 x10 3/uL) 0.00 Microbiology: Date/Time Procedure - Status Source Growth 09/135 MRSA DNA Surveillance Screen - RECD NASAL [...] % (Auto) (14.0 - 32.0 %) 15.0 [place] % (Auto) (4.8 - 9.0 %) 7.9 Eos % (Auto) (0.3 - 3.7 %) 3.8 H Baso % (Auto) (0.0 - 2.0 %) 0.3 Neut # (Auto) (2.0 - 7.6 x10 3/uL) 6.34 Lymph # (Auto) (1.0 - 3.8 x10 3/uL) 1.31 [place] # (Auto) (0.1 - 0.8 x10 3/uL) 0.69 Eos # (Auto) (0.0 - 0.2 x10 3/uL) 0.33 H Baso # (Auto) (0.0 - 0.2 x10 3/uL) 0.03 Abs Immat Gran (auto) (0.00 - 0.03 x10 3/uL) 0.06 H Add Manual Diff NO Immature Gran % (0.0 - 2.0 %) 0.7 Nucleated RBC % (0 - 0 %) 0.0 Nucleated RBCs # (Man) (0.0 - 0.1 x10 3/uL) 0.00 Toxicology Random Vancomycin (mcg/mL) 16.7 Laboratory Tests: 09/11 09/11 09/11 09/11 09/11 1532 1445 1114 0541 0445Chemistry Sodium (134 - 147 mEq/L) 134 Potassium [...] MG/DL) 4.7 Magnesium (1.80 - 2.40 mg/dL) 1.90Hematology WBC (4.5 - 11.0 x10 3/uL) 7.9 [...] % (Auto) (14.0 - 32.0 %) 16.1 [place] % (Auto) (4.8 - 9.0 %) 9.1 H Eos % (Auto) (0.3 - 3.7 %) 5.6 H Baso % (Auto) (0.0 - 2.0 %) 0.5 Neut # (Auto) (2.0 - 7.6 x10 3/uL) 5.35 Lymph # (Auto) (1.0 - 3.8 x10 3/uL) 1.27 [place] # (Auto) (0.1 - 0.8 x10 3/uL) 0.72 Eos # (Auto) (0.0 - 0.2 x10 3/uL) 0.44 H Baso # (Auto) (0.0 - 0.2 x10 3/uL) 0.04 Abs Immat Gran (auto) (0.00 - 0.03 0.06 Hx10 3/uL) Add Manual Diff NO Immature Gran % (0.0 - 2.0 %) 0.8 Nucleated RBC % (0 - 0 %) 0.0 Nucleated RBCs # (Man) (0.0 - 0.1 0.00x10 3/uL)Toxicology Random Vancomycin (mcg/mL) 18.3 09/10 1851 Chemistry POC Glucose (70 - 110 MG/DL) 97 Laboratory Tests: 09/10 09/10 09/10 09/10 09/10 1715 1625 1430 1007 0545Chemistry Sodium (134 - 147 mEq/L) 135 Potassium [...] MG/DL) 4.6 Magnesium (1.80 - 2.40 mg/dL) 1.89Hematology WBC (4.5 - 11.0 x10 3/uL) 8.6 [...] % (Auto) (14.0 - 32.0 %) 15.5 [place] % (Auto) (4.8 - 9.0 %) 8.5 Eos % (Auto) (0.3 - 3.7 %) 5.5 H Baso % (Auto) (0.0 - 2.0 %) 0.4 Neut # (Auto) (2.0 - 7.6 x10 3/uL) 5.94 Lymph # (Auto) (1.0 - 3.8 x10 3/uL) 1.33 [place] # (Auto) (0.1 - 0.8 x10 3/uL) 0.73 Eos # (Auto) (0.0 - 0.2 x10 3/uL) 0.47 H Baso # (Auto) (0.0 - 0.2 x10 3/uL) 0.03 Abs Immat Gran (auto) (0.00 - 0.03 0.06 Hx10 3/uL) Add Manual Diff NO Immature Gran % (0.0 - 2.0 %) 0.7 Nucleated RBC % (0 - 0 %) 0.0 Nucleated RBCs # (Man) (0.0 - 0.1 0.00x10 3/uL)Toxicology Random Vancomycin (mcg/mL) 15.7 09/10 09/09 0541 1911 Chemistry POC Glucose (70 - 110 MG/DL) 154 H 102 Recent Impressions:ULTRASOUND - US RETROPERITONEAL COM 09/10 1311 Report Impression - Status: SIGNED Entered: 09/10/2022 8113 IMPRESSION: No acute findings. Impression By: Yared Mares M.D. Laboratory Tests: 04/09/09 1606 1526 1403 1049 0524 Chemistry POC [...] % (Auto) (14.0 - 32.0 %) 16.1 [place] % (Auto) (4.8 - 9.0 %) 9.2 H Eos % (Auto) (0.3 - 3.7 %) 4.7 H Baso % (Auto) (0.0 - 2.0 %) 0.4 Neut # (Auto) (2.0 - 7.6 x10 3/uL) 6.38 Lymph # (Auto) (1.0 - 3.8 x10 3/uL) 1.49 [place] # (Auto) (0.1 - 0.8 x10 3/uL) 0.85 H Eos # (Auto) (0.0 - 0.2 x10 3/uL) 0.43 H Baso # (Auto) (0.0 - 0.2 x10 3/uL) 0.04 Abs Immat Gran (auto) (0.00 - 0.03 x10 3/uL) 0.05 H Add Manual Diff NO Immature Gran % (0.0 - 2.0 %) 0.5 Nucleated RBC % (0 - 0 %) 0.0 Nucleated RBCs # (Man) (0.0 - 0.1 x10 3/uL) 0.00 Retic Count (auto) (0.3 - 2.3 [...] (Auto) (14.0 - 32.0 %) 13.7 L [place] % (Auto) (4.8 - 9.0 %) 7.2 Eos % (Auto) (0.3 - 3.7 %) 4.8 H Baso % (Auto) (0.0 - 2.0 %) 0.3 Neut # (Auto) (2.0 - 7.6 x10 3/uL) 6.64 Lymph # (Auto) (1.0 - 3.8 x10 3/uL) 1.24 [place] # (Auto) (0.1 - 0.8 x10 3/uL) 0.65 Eos # (Auto) (0.0 - 0.2 x10 3/uL) 0.43 H Baso # (Auto) (0.0 - 0.2 x10 3/uL) 0.03 Abs Immat Gran (auto) (0.00 - 0.03 x10 3/uL) 0.06 H Add Manual Diff NO Immature Gran % (0.0 - 2.0 %) 0.7 Nucleated RBC % (0 - 0 %) 0.0 Nucleated RBCs # (Man) (0.0 - 0.1 x10 3/uL) 0.00 Laboratory Tests: 09/07 09/07 09/07 09/07 09/07 1554 1137 1127 0618 0510 Chemistry Creatinine (0.6 - 1.3 mg/dL) 1.4 H POC Glucose (70 - 110 MG/DL) 112 H 51 L 42 L 135 H Hematology Hgb (12.5 - 16.9 [...] 1739 Occult Blood - COMP STOOL Recent Impressions:RADIOLOGY - XR ABDOMEN 1V (KUB) 04/13 1648 Report Impression - Status: SIGNED Entered: 09/04/2022 1757 IMPRESSION: Benign appearance of the abdomen.Impression By: [email or web address] - Roger Parra M.D.ULTRASOUND - DUP VEIN UNI/LTD 09/05 1146 Report Impression - Status: SIGNED Entered: 09/05/2022 1333 IMPRESSION: 1. No evidence of deep vein thrombosis. 2. Complex heterogeneous hypoechoic fluid collection in the left calf region measuring 8.4 x 2.8 x 2.5 cm; there is no internal vascularity or peripheral hyperemia. May represent a hematoma.Impression By: [email or web address] - Mert Ga M.D.RADIOLOGY - XR CHEST 1 V 09/05 1432 Report Impression - Status: SIGNED Entered: 09/05/2022 1515 IMPRESSION: Minimal bibasilar pulmonary opacitiesImpression By: TipTDO Cr Mares M.D. Laboratory Tests: 09/04 09/04 09/04 09/04 09/04 [...] COLB STOOL 1.Diabetes mellitus type 2 uncontrolled complications.2. Status post right BKA3. Status post gangrene of the right foot.4. Sepsis5. Prostate abscess.6. AnemiaBlood sugar 301-155 mg/dL.H/H 8.11/17.Adjust insulin dose.PT and OT. at 1611 RPT #:[id number] OF REPORTPRProgress [id number]:11:00G.[id number] able for patient oywiMDINIPXIKZLHZP6095-70-47E83:12:13 [facility] 2022-09-20 13:40:00 [id number] J+buvAjk4pE+Ch3gT7fPb8kRXkTC3 QlMHGmyEKMW0ytKZshwu1MDuZ271981-27-04K60:40:00 [facility])Gastroenterology Progress NoteREPORT#:[id number] REPORT STATUS: SignedDATE:09/20/22 TIME: 1340 PATIENT: KARMA ROWLAND UNIT #: [id number]#: [id number] [address] AGE: 56 SEX: M ATTEND: Mj Vences MDADM AUTHOR: Kassie Avitia MD * ALL edits or amendments must be made on the electronic/computer document * SubjectiveHPI:Patient is a 56-year-old male with history of diabetes mellitus type 2 and hypertension who was initially admitted for altered mental status and right-sided foot infection. 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 The patient is anemic with current Hgb 7.1. He has received a total of 3 units pRBCs during this hospitalization. KUB on 09/04 was negative for acute GI process. The patient denies overt GIB, dark tarry stools, nausea, abdominal pain, or vomiting. He has never had EGD orcolonoscopy. 09/06: No complaints today. Hemoglobin stable. No overt GI bleed. Plan for colonoscopy and endoscopy on Thursday 09/07: No complaints today. No overt GI bleed. Planning for colonoscopy and endoscopy tomorrow 09/08: EGD mild gastritis. colonoscopy rectal polyp s/p snare. No other abnormalities 09/09: doing well. Seen at the gym. No bleeding. 09/10: Doing well. No bleeding. tolerating diet. Movig bowels 09/11: doing well. States his leg swelling is better. Tolerating diet. having normal BM 09/12: dooing well. doing work-out at the gym. Tolerating diet. Normal BMs. Stable H/-Sitting up in wheelchair, family at bedside. Denies n/v/abd pain/GIB 09/15: Doing well. H/H stable. No melena or BRBPR. No nausea or vomiting. Appetite is well 09/16: doing well. no complaints. eating well 09/17: stable H/H. No complaints. 09/18/22: H/H fluctuating but overall stable 09/19: H/H stable up to 8 today. No complaints. 09/20: Hemoglobin relatively stable. No complaint Objective Physical ExamHEENT: atraumatic, normocephalicNeck: full range of motion, non-tenderRespiratory: symmetric expansion, no distressAbdomen: non-tender, normal bowel sounds, soft, no distention, no guardingExtremities: right BKA Considered stroke alert: noSkin: dry Diagnosis, Assessment PlanFree Text A P:1. Positive FOBT-and anemia: The patient denies overt GIB, dark tarry stools, nausea, abdominal pain, or vomiting. He is not on anticoagulation therapy.-Continue PPI. The patient has never had EGD or colonoscopy prior to this admissions/p EGD and colonoscopy. EGD showed mild gastritis. Colonoscopy showed rectal polyp that was resected by snare. no evidence of bleeding. Pathology of polyp came back as tubular adenoma. recommend repeating colonoscopy in 5 years Anemia likely secondary to chronic kidney disease and mild oozing from his stump.Can consider video capsule endoscopy as outpt if evidence of dropping H/HH/H remains stable Consider reducing frequency of H/H checkWill follow along Consultants: cardiology, endocrinology, hospitalist, infectious disease, podiatry at 1341 RPT #:[id number] OF REPORTPRProgress [id number]:40:00G.[id number] able for patient ztcmYDPTPFFSPVVNGC4962-87-96T89:42:40 [facility] 2022-09-20 10:45:00 [id number] Psjhzb6VVjcLMqbjkJkJHs/jemF1i Jv834WykWPFrHy3tTxZ/rc7275G0841-41-05N88:45:00 [facility]Hospital[facility] Progress NoteREPORT#:[id number] REPORT STATUS: SignedDATE:09/20/22 TIME: 1045 PATIENT: KARMA ROWLAND UNIT #: [id number]#: [id number] [address] AGE: 56 SEX: M ATTEND: Mj Vences [facility] AUTHOR: Wilbert Ramires MD * ALL edits or amendments must be made on the electronic/computer document * SubjectiveChief complaint:Edema LLE improved but still present Review of SystemsAll systems rev neg: except as noted Objective GeneralVS/I O:Vital Signs: Date Time Temp Pulse Resp B/P B/P Pulse O2 O2 Flow FiO2 Mean Ox Delivery Rate 09/20 0719 [...] Urine 750 1500 PATIENT WEIGHT: Weight (lb): 167Weight (oz): 12.35Weight (kg): 76.100 Medications:Active Meds + DC'd Last 24 HrsInsulin Glargine (Semglee) 17 UNIT BEDTIME SUBQ Prednisone (predniSONE) 60 MG DAILY 0600 PO Daptomycin (CUBICIN 500MG) 500 MG Q24H IV Sodium Chloride (SODIUM CHLORIDE 0.9%) 50 MLHydralazine HCl (APRESOLINE) 75 MG Q8HR PO Insulin Human Lispro (HUMALOG) 10 UNIT AC SUBQ Insulin Glargine (Semglee) 20 UNIT BEDTIME SUBQ (DC) Meropenem (MEROPENEM) 500 MG Q8H IV Sterile Water (WATER FOR INJECTION) 10 MLCarvedilol (COREG) 25 MG C BK DIN PO Gabapentin (NEURONTIN) 100 MG Q8HR PO Oxycodone/Acetaminophen (PERCOCET 5/325MG TAB) 2 TAB Q4H PRN PRN PO Folic Acid (FOLIC ACID) 2 MG DAILY PO Multivitamins (TAB-A-MOHAN) 1 TAB DAILY PO Furosemide (LASIX 20MG INJ) 20 MG BLOOD-DOSE BETWEEN IV (CKD) Sodium Chloride (SODIUM CHLORIDE) 10 ML ASDIR IV Pantoprazole Sodium (PROTONIX) 40 MG Q12HR IV Polyethylene Glycol (MIRALAX) 17 GM DAILY PO Sennosides (Senna Lax 8.6 MG TABLET) 8.6 MG DAILY PO Sodium Chloride (SODIUM CHLORIDE) 10 ML ASDIR PRN IV Amitriptyline HCl (ELAVIL) 25 MG BEDTIME PO Zinc Oxide (ZINC OXIDE 30 GM OINTMENT) 1 APPLIC DAILY TOPICAL Sterile Water (WATER FOR IRRIGATION) DRESSING CHANGE ASDIR PRN IRR Insulin Human Lispro (HUMALOG) 0 AC HS SUBQ Dextrose/Water (DEXTROSE 10% IN WATER) 125 ML ASDIR PRN IV (CKD) Dextrose/Water (DEXTROSE 10% IN WATER) 250 ML ASDIR PRN IV (CKD) Glucagon (GLUCAGON) 1 MG ASDIR PRN IM Lidocaine (LIDODERM) 1 PATCH DAILY TOPICAL Acetaminophen (TYLENOL) 650 MG Q6H PRN PRN PO Bisacodyl (DULCOLAX) 10 MG DAILY PRN PRN RECTAL Docusate Sodium (COLACE) 100 MG Q12H PRN PRN PO Hydralazine HCl (APRESOLINE) 10 MG Q6H PRN PRN IV Ondansetron HCl (ZOFRAN) 4 MG Q6H PRN PRN IV Physical ExamGeneral appearance: alert, awake, orientedHead/Eyes: atraumatic, normocephalicENT: moist mucosal membranesNeck: no JVDCardiovascular: normal heart sounds, regular rate rhythmRespiratory: aerating well, clear to auscultationAbdomen: non-tender, normal bowel soundsGenitourinary: no bladder distentionExtremities: edema (1+ pitting edema to thigh), moves all, normal capillary refillMusculoskeletal: normal inspectionNeuro/DIRECTOR OPERATING ROOM: alert, oriented X 3, 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 Considered stroke alert: noSkin: dry, intactPsychiatry: normal affect, normal judgment/insight ResultsFindings/Data:Laboratory Tests 09/20 09/20 09/20 09/19 09/19 0922 [...] (Auto) (14.0 - 32.0 %) 13.0 L [place] % (Auto) (4.8 - 9.0 %) 6.2 Eos % (Auto) (0.3 - 3.7 %) 0.2 L Baso % (Auto) (0.0 - 2.0 %) 0.1 Neut # (Auto) (2.0 - 7.6 x10 3/uL) 9.84 H Lymph # (Auto) (1.0 - 3.8 x10 3/uL) 1.60 [place] # (Auto) (0.1 - 0.8 x10 3/uL) 0.76 Eos # (Auto) (0.0 - 0.2 x10 3/uL) 0.03 Baso # (Auto) (0.0 - 0.2 x10 3/uL) 0.01 Abs Immat Gran (auto) (0.00 - 0.03 x10 3/uL) 0.10 H Add Manual Diff NO Immature Gran % (0.0 - 2.0 %) 0.8 Nucleated RBC % (0 - 0 %) 0.0 Nucleated RBCs # (Man) (0.0 - 0.1 x10 3/uL) 0.00 Diagnosis, Assessment PlanConsultants: cardiology, endocrinology, hospitalist, infectious disease, podiatry Free Text DxA P NotesFree text DxA P notes:Gangrene of right foot s/p Below- knee amputation Prostate abscessMRSA bacteremiaHx of Diabetes, Diabetic neuropathyHTNAKI PLANS: Continue with PT/OT per primary Wound care and Abx as per IDHepain PPXIV ironBP continues to be elevated, Hydralazine increased to 75 mg TID, cont Metoprololto 25 mg BIDBS better but likely to increase with re-initiation of steroids x3 days started by Nephrology for AIN - Endo adjusting insulinpain controlCr at 2.2, Nephrology following, re-started Prednisone 60 mg for 2 daysEdema about the same, Lasix as per renalHgb stabilized. continue to monitor at 1045 RPT #:[id number] OF REPORTPRProgress [id number]:45:00G.[id number] able for patient oxlcAKBSFNABVMNRET2410-83-48S86:48:39 [facility] 2022-09-20 10:32:00 [id number] EW4w4yZOpkqkVG/GvSXUY45fhXTIe YptYSyLyUIQJVxCkn5dUpS9XROl0967-57-47R18:32:00 [facility])Podiatry Progress NoteREPORT#:[id number] REPORT STATUS: SignedDATE:09/20/22 TIME: 1032 PATIENT: KARMA ROWLAND UNIT #: [id number]#: [id number] [address] [birth year] AGE: 56 SEX: M ATTEND: Mj Vences [facility] AUTHOR: Francisco Singh DPM * ALL edits or amendments must be made on the electronic/computer document * SubjectiveChief complaint:left heel ulcer.left ankle painHPI:Patient seen at bedside this morning. No acute overnight events. No changes since yesterday. Review of SystemsConstitutional:Denies: chills, fatigue, fever, generalized weakness. Respiratory:Denies: OVIEDO (dyspnea on exertion), hemoptysis, non productive cough, productive cough (sputum), SOB. Cardiovascular:Denies: chest pain, OVIEDO (dyspnea on exertion), palpitations. GI:Denies: abdominal pain, constipation, diarrhea, nausea, vomiting. Neuro:Denies: change in LOC, confusion, dizziness, headache, lightheaded. Objective GeneralVS:Last Documented: Result Date Time Pulse Ox 100 09/20 718 B/P 149/74 09/20 718 B/P Mean 98.7 09/20 718 O2 Delivery Room air 09/20 718 Temp 97.7 09/20 718 Pulse 86 09/20 718 Resp 18 09/20 718 O2 Flow Rate 2 09/08 1322 PATIENT WEIGHT: Weight (lb): 167Weight (oz): 12.35Weight (kg): 76.100 Medications:Active Meds + DC'd Last 24 HrsInsulin Glargine (Semglee) 17 UNIT BEDTIME SUBQ Prednisone (predniSONE) 60 MG DAILY 0600 PO Daptomycin (CUBICIN 500MG) 500 MG Q24H IV Sodium Chloride (SODIUM CHLORIDE 0.9%) 50 MLHydralazine HCl (APRESOLINE) 75 MG Q8HR PO Insulin Human Lispro (HUMALOG) 10 UNIT AC SUBQ Insulin Glargine (Semglee) 20 UNIT BEDTIME SUBQ (DC) Meropenem (MEROPENEM) 500 MG Q8H IV Sterile Water (WATER FOR INJECTION) 10 MLCarvedilol (COREG) 25 MG C BK DIN PO Gabapentin (NEURONTIN) 100 MG Q8HR PO Oxycodone/Acetaminophen (PERCOCET 5/325MG TAB) 2 TAB Q4H PRN PRN PO Folic Acid (FOLIC ACID) 2 MG DAILY PO Multivitamins (TAB-A-MOHAN) 1 TAB DAILY PO Furosemide (LASIX 20MG INJ) 20 MG BLOOD-DOSE BETWEEN IV (CKD) Sodium Chloride (SODIUM CHLORIDE) 10 ML ASDIR IV Pantoprazole Sodium (PROTONIX) 40 MG Q12HR IV Polyethylene Glycol (MIRALAX) 17 GM DAILY PO Sennosides (Senna Lax 8.6 MG TABLET) 8.6 MG DAILY PO Sodium Chloride (SODIUM CHLORIDE) 10 ML ASDIR PRN IV Amitriptyline HCl (ELAVIL) 25 MG BEDTIME PO Zinc Oxide (ZINC OXIDE 30 GM OINTMENT) 1 APPLIC DAILY TOPICAL Sterile Water (WATER FOR IRRIGATION) DRESSING CHANGE ASDIR PRN IRR Insulin Human Lispro (HUMALOG) 0 AC HS SUBQ Dextrose/Water (DEXTROSE 10% IN WATER) 125 ML ASDIR PRN IV (CKD) Dextrose/Water (DEXTROSE 10% IN WATER) 250 ML ASDIR PRN IV (CKD) Glucagon (GLUCAGON) 1 MG ASDIR PRN IM Lidocaine (LIDODERM) 1 PATCH DAILY TOPICAL Acetaminophen (TYLENOL) 650 MG Q6H PRN PRN PO Bisacodyl (DULCOLAX) 10 MG DAILY PRN PRN RECTAL Docusate Sodium (COLACE) 100 MG Q12H PRN PRN PO Hydralazine HCl (APRESOLINE) 10 MG Q6H PRN PRN IV Ondansetron HCl (ZOFRAN) 4 MG Q6H PRN PRN IV I O:24 hour I O ending at 0700: 04/29 0700 09/19 1900 Intake Total 240 960 Output Total 750 1500 Balance -510 -540 Intake, Oral 240 960 Number 0 0 Incontinent Voids Number Voids 0 0 Output, Urine 750 1500 Dietitian nutrition assessmentThe data set between the solid lines has been imported from the dietitian's assessment. BMI Calculated: 27.1Nutrition related diagnosis: Nutrition diagnosis details: Nutrition problem: Altered nutrition labsNutrition etiology: DMNutrition signs and symptoms: HYPER/HYPOGLYCEMIA, A1C >14Nutrition prescription: CONTINUE RENAL DM DIETDietitian name: You Palmer, DIETAssessment completed: 09/18/22 Physical ExamGeneral appearance: alert, awake, oriented, no acute distress, pleasant, conversational, mental status normal, no respiratory distressWound/incision: Location:left foot Site condition: dp/pt 2/4 left. light touch decreased left foot. ulcer starting at posterior left heel. eccymosis noted. early likely stage 1. left ankle has edema. pain with aggressive ROM left ankle. dorsal left midfoot is starting to have tissue injuryLE vascular pulse assess:2+ L posterior tibialis, 2+ L dorsalis pedis Considered stroke alert: noUlcer: Location: DTI dorsal left midfoot ResultsFindings/Data:Laboratory Tests: 09/20 09/20 09/20 09/19 09/19 0922 0505 0458 1921 1544Chemistry Sodium (134 - 147 mEq/L) 136 Potassium [...] 5.4 H Magnesium (1.80 - 2.40 mg/dL) 2.05Hematology WBC (4.5 - 11.0 x10 3/uL) 12.3 [...] (Auto) (14.0 - 32.0 %) 13.0 L [place] % (Auto) (4.8 - 9.0 %) 6.2 Eos % (Auto) (0.3 - 3.7 %) 0.2 L Baso % (Auto) (0.0 - 2.0 %) 0.1 Neut # (Auto) (2.0 - 7.6 x10 3/uL) 9.84 H Lymph # (Auto) (1.0 - 3.8 x10 3/uL) 1.60 [place] # (Auto) (0.1 - 0.8 x10 3/uL) 0.76 Eos # (Auto) (0.0 - 0.2 x10 3/uL) 0.03 Baso # (Auto) (0.0 - 0.2 x10 3/uL) 0.01 Abs Immat Gran (auto) (0.00 - 0.03 0.10 Hx10 3/uL) Add Manual Diff NO Immature Gran % (0.0 - 2.0 %) 0.8 Nucleated RBC % (0 - 0 %) 0.0 Nucleated RBCs # (Man) (0.0 - 0.1 0.00x10 3/uL) 09/19 1133 Chemistry POC Glucose (70 - 110 MG/DL) 96 Diagnosis, Assessment PlanFree Text A P:DM with neuropathyearly decub ulcer left heelOA/edema left ankleearly ulcer/DTI dorsal left midfoot Labs reviewedzinc oxide to foot and heelfoam to heelon IV abxon PO gabapentinoffloading bootace wraps to ankle, only when OOB with therapy.zinc oxide interchange with bactroban to dorsal left foot Covering for Dr. Hassansultants: cardiology, endocrinology, hospitalist, infectious disease, podiatry at 1620 RPT #:[id number] OF REPORTPRProgress [id number]:32:00G.[id number] able for patient [id number]:20:42 [facility] 2022-09-20 09:08:00 [id number] [id number]/[id number]:08:00 [facility] HospitalNephrology Progress NoteREPORT#:[id number] REPORT STATUS: SignedDATE:09/20/22 TIME: 0908 PATIENT: KARMA ROWLAND UNIT #: [id number]#: [id number] [address] [birth year] AGE: 56 SEX: M ATTEND: Mj Vences MDADM AUTHOR: Barrera Ramírez MD * ALL edits or amendments must be made on the electronic/computer document * SubjectiveChief complaint:Infected footHPI:Patient seen and evaluated on 09/09/2022, note started, records reviewed and orders placed on 09/08/2022, 56-year-old male with history of diabetes mellitus type 2, hypertension and peripheral vascular disease who was initially admitted to acute care with altered mental status and right foot infection/gangrene, 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 Patient had persistent anemia requiring blood transfusion. His fecal occult blood was positive and his creatinine was 1.2 and increased to 1.4 today, laboratories today showed hemoglobin 8.5, platelet 231, blood count 9.1, sodium 135, potassium 4.6, CO2 22, BUN 22, creatinine 1.4. Renal consult was requested for evaluation management of elevated BUN and creatinine and if his decreased GFR iscontributing to his anemia. Patient reports:Yes: complaints. Comments:Patient seen and evaluated, HPI no change from initial, feels okay. Review of SystemsConstitutional:Reports: fatigue. Denies: chills, fever. Skin:Denies: abrasion, bruising. Allergy/Immun:Denies: hives, itching. Eyes:Denies: redness, discharge. ENT:Denies: ear drainage, ear ringing. Respiratory:Denies: hemoptysis, SOB. Cardiovascular:Denies: chest pain. Objective GeneralVS/I O:Vital Signs: Date Time Temp Pulse Resp B/P B/P Pulse O2 O2 Flow FiO2 Mean Ox Delivery Rate 09/20 0719 [...] Urine 750 1500 PATIENT WEIGHT: Weight (lb): 167Weight (oz): 12.35Weight (kg): 76.100 MedicationsActive Meds + DC'd Last 24 HrsInsulin Glargine (Semglee) 17 UNIT BEDTIME SUBQ Magnesium Sulfate (MAGNESIUM SULFATE 2GM/SWFI 50ML) 50 ML ONCE ONE IV (DC) Prednisone (predniSONE) 60 MG DAILY 0600 PO Daptomycin (CUBICIN 500MG) 500 MG Q24H IV Sodium Chloride (SODIUM CHLORIDE 0.9%) 50 MLHydralazine HCl (APRESOLINE) 75 MG Q8HR PO Insulin Human Lispro (HUMALOG) 10 UNIT AC SUBQ Insulin Glargine (Semglee) 20 UNIT BEDTIME SUBQ (DC) Meropenem (MEROPENEM) 500 MG Q8H IV Sterile Water (WATER FOR INJECTION) 10 MLCarvedilol (COREG) 25 MG C BK DIN PO Gabapentin (NEURONTIN) 100 MG Q8HR PO Oxycodone/Acetaminophen (PERCOCET 5/325MG TAB) 2 TAB Q4H PRN PRN PO Folic Acid (FOLIC ACID) 2 MG DAILY PO Multivitamins (TAB-A-MOHAN) 1 TAB DAILY PO Furosemide (LASIX 20MG INJ) 20 MG BLOOD-DOSE BETWEEN IV (CKD) Sodium Chloride (SODIUM CHLORIDE) 10 ML ASDIR IV Pantoprazole Sodium (PROTONIX) 40 MG Q12HR IV Polyethylene Glycol (MIRALAX) 17 GM DAILY PO Sennosides (Senna Lax 8.6 MG TABLET) 8.6 MG DAILY PO Sodium Chloride (SODIUM CHLORIDE) 10 ML ASDIR PRN IV Amitriptyline HCl (ELAVIL) 25 MG BEDTIME PO Zinc Oxide (ZINC OXIDE 30 GM OINTMENT) 1 APPLIC DAILY TOPICAL Sterile Water (WATER FOR IRRIGATION) DRESSING CHANGE ASDIR PRN IRR Insulin Human Lispro (HUMALOG) 0 AC HS SUBQ Dextrose/Water (DEXTROSE 10% IN WATER) 125 ML ASDIR PRN IV (CKD) Dextrose/Water (DEXTROSE 10% IN WATER) 250 ML ASDIR PRN IV (CKD) Glucagon (GLUCAGON) 1 MG ASDIR PRN IM Lidocaine (LIDODERM) 1 PATCH DAILY TOPICAL Acetaminophen (TYLENOL) 650 MG Q6H PRN PRN PO Bisacodyl (DULCOLAX) 10 MG DAILY PRN PRN RECTAL Docusate Sodium (COLACE) 100 MG Q12H PRN PRN PO Hydralazine HCl (APRESOLINE) 10 MG Q6H PRN PRN IV Ondansetron HCl (ZOFRAN) 4 MG Q6H PRN PRN IV Physical ExamGeneral appearance: alert, no acute distressHead/eyes: atraumatic, normocephalicENT: normal noseNeck: non-tender, supple/no meningismusCardiovascular: normal heart sounds, no rubRespiratory: aerating well, symmetric expansionAbdomen: non-tender, softGenitourinary: no flank painExtremities: non-tender, no edemaMusculoskeletal: no CVA tenderness, no tendernessNeuro/DIRECTOR OPERATING ROOM: alert, 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 Considered stroke alert: noSkin: dry, intact ResultsFindings/Data:Laboratory Tests 09/20 09/20 09/19 09/19 09/19 0505 [...] (Auto) (14.0 - 32.0 %) 13.0 L [place] % (Auto) (4.8 - 9.0 %) 6.2 Eos % (Auto) (0.3 - 3.7 %) 0.2 L Baso % (Auto) (0.0 - 2.0 %) 0.1 Neut # (Auto) (2.0 - 7.6 x10 3/uL) 9.84 H Lymph # (Auto) (1.0 - 3.8 x10 3/uL) 1.60 [place] # (Auto) (0.1 - 0.8 x10 3/uL) 0.76 Eos # (Auto) (0.0 - 0.2 x10 3/uL) 0.03 Baso # (Auto) (0.0 - 0.2 x10 3/uL) 0.01 Abs Immat Gran (auto) (0.00 - 0.03 x10 3/uL) 0.10 H Add Manual Diff NO Immature Gran % (0.0 - 2.0 %) 0.8 Nucleated RBC % (0 - 0 %) 0.0 Nucleated RBCs # (Man) (0.0 - 0.1 x10 3/uL) 0.00 Diagnosis, Assessment PlanFree Text A P:Patient seen and evaluated, discussed with care team, images and laboratories reviewed.Diabetes mellitus: Insulin: Monitor blood sugar closely and adjust medications as needed, followed by endocrinology.Hypertension: Blood pressure is not well controlled, increase Coreg to 12.5 mg p.o. twice daily: Monitor blood pressure closely and adjust medications as neededRight foot gangrene/infection status post right BKAAnemia: Status post EGD and colonoscopy which were negative for active GI bleeding, patient had work-up in July 2022 which showed very high B12, normal folate, very low iron saturation but very high ferritin which was likely relatedto his infection, likely patient is very iron deficient, will repeat lab and give IV iron if needed. We will check serum immunofixation.Acute kidney injury: We will check renal bladder ultrasound, check postvoid residual, check urine protein creatinine ratioHypomagnesemia: We will supplement09/10/2022 laboratory this morning showed sodium 135, potassium 4.2, CO2 21, BUN 25, creatinine 1.9 continues to worsen, etiology unclear, however his development some eosinophilia not sure if he is developing AIN, suggest changingcefepime to a different class of antibiotic if possible, will check renal bladder ultrasound09/11/2022 laboratory this morning showed sodium 134, potassium 4.3, CO2 22, BUN 26, creatinine 2 up from 1.9, hopefully creatinine is plateauing, renal ultrasound negative.09/12/2022 laboratory this morning showed sodium 134, potassium 4.2, CO2 20, BUN 31, creatinine 2.4 continues to worsen, discussed with ID, AIN is probably the etiology of the unexplained deterioration of his renal function, antibiotics to be adjusted by infectious disease, will give Solu-Medrol 125 mg IV daily for 3 days. Significant lower extremity edema, will start Lasix 20 mg p.o. twice daily.23: pt was seen and examined. Very thirsty. serum creatinine is worsening today. Vancomycin was stopped yesterday and Solu medrol was started. Mild hypovolemic hyponatremia. Will DC lasix and monitor his renal functions. BP is well controlled. 09.14.22: pt was seen and examined. Feels better but still thirsty. I stopped hislasix. will start NS at 75 cc for one Leter only. serum creatinine is improving.Received three doses of Solu Medrol a well. BP is on the higher side, likely secondary to steroids. will monitor for now. mild hypovelmic hyponatremia. also could be secondary to hyperglycemia. 09/15/2022 we will give additional dose of Solu-Medrol 125 mg IV today, laboratory this morning showed sodium 132, potassium 4.7, CO2 17, chloride 105, BUN 38, creatinine 2.9, glucose 312, hemoglobin 8.2, platelet 341, blood count 8.7, needs better blood sugar control, if creatinine does not start improving the next couple days will plan for kidney biopsy09/16/2022 laboratory this morning showed sodium 135, potassium 4.5, CO2 20, BUN 60, creatinine 2.7, better down from 2.9, hemoglobin 7.6, platelet 360, blood count 9.5, will give prednisone 80 mg p.o. today, blood pressure is elevated, will add hydralazine 25 mg p.o. 3 times daily, scrotal and LE swelling will giveLasix 40 mg IV x blood pressure still elevated, will increase hydralazine to 50 mg p.o.3 times daily, will give 80 mg of prednisone today, urine output with Lasix 4125, laboratory this morning showed sodium 136, potassium 4.5, CO2 21, BUN 66, creatinine 2.4 down from 2.7, will give 3 more doses of IV Lasix 40 mg every 8 hours09/18/2022 laboratory this morning showed sodium 138, potassium 4.1, CO2 21, BUN 66, creatinine 2.2 continues to improve, urine output 2.7 L, hemoglobin 7.6, platelet 341, blood count 10.6, will give Lasix 40 mg IV every 8 for 3 doses, start prednisone 60 mg p.o. daily for 3 days, increase hydralazine to 75 mg p.o.3 times daily.09/19/2022 blood pressure better, sodium 139, potassium 3.8, CO2 22, BUN 72 up from 66, creatinine 2.3 up from 2.2, will hold off diuretics, urine output reported 2 L, magnesium 1.69 we will give magnesium sulfate 2 g IV x1, continue prednisone.09/20/2022 laboratory this morning showed sodium 136, potassium 4.2, CO2 21, BUN 76, creatinine 2.2 down from 2.3, hemoglobin 7.6, platelet 302, blood count 12.3, continue off diureticsConsultants: cardiology, endocrinology, hospitalist, infectious disease, podiatry at 1137 RPT #:[id number] OF REPORTPRProgress [id number]:08:00G.[id number] able for patient szljEIGRTDJYHBWWMS0388-56-38H99:38:03 [facility] 2022-09-20 08:44:00 [id number] mhEveQuclEVHeR9hbiW4aXPDui89113-53-33Q43:44:00 [facility] ([facility])Pain Management Progress NoteREPORT#:[id number] REPORT STATUS: SignedDATE:09/20/22 TIME: 0844 PATIENT: KARMA ROWLAND UNIT #: [id number]#: [id number] [address] [birth year] AGE: 56 SEX: M ATTEND: Mj Vences [facility] AUTHOR: Ben Klein * ALL edits or amendments must be made on the electronic/computer document * Ben Klein 09/20/22 0844:SubjectiveChief complaint:Patient seen and examined. Chart/MAR reviewed. Patient patient feels well this morning. Events noted. Pain control improving. No bothersome muscle spasms or neuropathy symptoms to report. Patient being seen for Acute postoperative pain, right foot and anklegangrene, requiring BKA, Neuropathy, Constipation Patient is still requiring medications to help with managing currentproblems. No fever/chills, chest pain, orthopnea, nausea/vomiting, pruritus, orhallucinations.14 point ROS undertaken unremarkable except as noted Objective GeneralVS/I O:Vital Signs Date Temp Pulse Resp B/P B/P Mean Pulse Ox FiO2 09/19-09/20 36.5-36.7 85-90 16-18 143-157/43-75 81.1-99.3 95-100 Last Documented: Result Date Time Pulse Ox 100 09/20 718 B/P 149/74 09/20 718 B/P Mean 98.7 09/20 718 O2 Delivery Room air 09/20 718 Temp 36.5 09/20 07 Pulse 86 09/20 0719 Resp 18 09/20 07 O2 Flow Rate 2 09/08 1322 24 hour I O ending at 0700: 09/20 0700 09/19 1900 Intake Total 240 960 Output Total 750 1500 Balance -510 -540 Intake, Oral 240 960 Number 0 0 Incontinent Voids Number Voids 0 0 Output, Urine 750 1500 PATIENT WEIGHT: Weight (lb): 167Weight (oz): 12.35Weight (kg): 76.100 Medications:Active Meds + DC'd Last 24 HrsInsulin Glargine (Semglee) 17 UNIT BEDTIME SUBQ Magnesium Sulfate (MAGNESIUM SULFATE 2GM/SWFI 50ML) 50 ML ONCE ONE IV (DC) Prednisone (predniSONE) 60 MG DAILY 0600 PO Daptomycin (CUBICIN 500MG) 500 MG Q24H IV Sodium Chloride (SODIUM CHLORIDE 0.9%) 50 MLHydralazine HCl (APRESOLINE) 75 MG Q8HR PO Insulin Human Lispro (HUMALOG) 10 UNIT AC SUBQ Insulin Glargine (Semglee) 20 UNIT BEDTIME SUBQ (DC) Meropenem (MEROPENEM) 500 MG Q8H IV Sterile Water (WATER FOR INJECTION) 10 MLCarvedilol (COREG) 25 MG C BK DIN PO Gabapentin (NEURONTIN) 100 MG Q8HR PO Oxycodone/Acetaminophen (PERCOCET 5/325MG TAB) 2 TAB Q4H PRN PRN PO Folic Acid (FOLIC ACID) 2 MG DAILY PO Multivitamins (TAB-A-MOHAN) 1 TAB DAILY PO Furosemide (LASIX 20MG INJ) 20 MG BLOOD-DOSE BETWEEN IV (CKD) Sodium Chloride (SODIUM CHLORIDE) 10 ML ASDIR IV Pantoprazole Sodium (PROTONIX) 40 MG Q12HR IV Polyethylene Glycol (MIRALAX) 17 GM DAILY PO Sennosides (Senna Lax 8.6 MG TABLET) 8.6 MG DAILY PO Sodium Chloride (SODIUM CHLORIDE) 10 ML ASDIR PRN IV Amitriptyline HCl (ELAVIL) 25 MG BEDTIME PO Zinc Oxide (ZINC OXIDE 30 GM OINTMENT) 1 APPLIC DAILY TOPICAL Sterile Water (WATER FOR IRRIGATION) DRESSING CHANGE ASDIR PRN IRR Insulin Human Lispro (HUMALOG) 0 AC HS SUBQ Dextrose/Water (DEXTROSE 10% IN WATER) 125 ML ASDIR PRN IV (CKD) Dextrose/Water (DEXTROSE 10% IN WATER) 250 ML ASDIR PRN IV (CKD) Glucagon (GLUCAGON) 1 MG ASDIR PRN IM Lidocaine (LIDODERM) 1 PATCH DAILY TOPICAL Acetaminophen (TYLENOL) 650 MG Q6H PRN PRN PO Bisacodyl (DULCOLAX) 10 MG DAILY PRN PRN RECTAL Docusate Sodium (COLACE) 100 MG Q12H PRN PRN PO Hydralazine HCl (APRESOLINE) 10 MG Q6H PRN PRN IV Ondansetron HCl (ZOFRAN) 4 MG Q6H PRN PRN IV Physical ExamGeneral appearance: alert, awake, orientedHead/eyes: atraumatic, EOMI, normocephalic, normal conjunctiva/sclera, PERRLAENT: normal ear leftNeck: full range of motion, no lymphadenopathy, supple/no meningismusCardiovascular: regular rate rhythmRespiratory: aerating wellAbdomen: soft, non-tender, no distention, active bowel sounds in all quarants. 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: 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, no sensory deficits, CNII-XII grossly intact Considered stroke alert: noSkin: dry, intact, no rashLymphatics: axilla normalPsychiatry: normal affect ResultsFindings/data:Laboratory Tests: 09/20 09/20 09/19 09/19 09/19 0505 0458 1921 1544 1133Chemistry Sodium (134 - 147 mEq/L) 136 Potassium [...] 5.4 H Magnesium (1.80 - 2.40 mg/dL) 2.05Hematology WBC (4.5 - 11.0 x10 3/uL) 12.3 [...] (Auto) (14.0 - 32.0 %) 13.0 L [place] % (Auto) (4.8 - 9.0 %) 6.2 Eos % (Auto) (0.3 - 3.7 %) 0.2 L Baso % (Auto) (0.0 - 2.0 %) 0.1 Neut # (Auto) (2.0 - 7.6 x10 3/uL) 9.84 H Lymph # (Auto) (1.0 - 3.8 x10 3/uL) 1.60 [place] # (Auto) (0.1 - 0.8 x10 3/uL) 0.76 Eos # (Auto) (0.0 - 0.2 x10 3/uL) 0.03 Baso # (Auto) (0.0 - 0.2 x10 3/uL) 0.01 Abs Immat Gran (auto) (0.00 - 0.03 0.10 Hx10 3/uL) Add Manual Diff NO Immature Gran % (0.0 - 2.0 %) 0.8 Nucleated RBC % (0 - 0 %) 0.0 Nucleated RBCs # (Man) (0.0 - 0.1 0.00x10 3/uL) Diagnosis, Assessment PlanFree text A P:A/P:Patient is a 56 year old male who presents with: Past Medical History: Prostate abscess, right foot foot and ankle gangrene, diabetes, hypertension, hyperlipidemiaPast Surgical History: TURP, right BKAFamily History: NoncontributorySocial History: Denies tobacco, alcohol, or drug useAllergies: NKDA Recent prostate abscess-Status post TURP with unroofing of abscess-IV antibiotics with vancomycin until 09-24-2022 Acute postoperative pain, right foot and ankle gangrene, requiring BKA-Patient is at risk for further amputations or loss of limb due to comorbid conditions-Status post right BKA 08/28/2022-DC Sheldon 10/325 1 tablet p.o. every 4 hours as needed pain scale 4 10-DC Dilaudid 0.5 mg IV daily as needed pain scale 7 10, second line therapy (09/13)-Tylenol 650 mg p.o. every 6 hours as needed pain scale 1 3-Percocet 10/325mg every 4 hours as needed, pain scale 4-10 (09/10)-Lidoderm patch to left ankle daily-IV antibiotics with vancomycin until 0-6-2165-Local wound care-manageable Diabetic peripheral neuropathy-amitriptyline 25mg PO QHS-Gabapentin 100mg every 8 hours (09/10)-manageable Hypertension-We will monitor hypertension and tachycardia due to pain, and hypotension as well as bradycardia secondary over sedation with narcotics-Hydralazine as needed Elevated LFTs-08/20/22-AST 51, ALT 22-09/03/2022-AST 15, ALT 7-Patient will require close monitoring since he is using narcotics with Tylenol Impaired functional mobility, balance, gait, and endurance-PT/OT Antalgic/Impaired gait-PT/OT-Improve strength, endurance, self-care, gait, balance, ADLs-Fall precautions per unit protocol-Pain medications as outlined above Constipation-We will monitor while utilizing opioid narcotic medications.-Adequate fluid intake also discussed.-Colace 100 mg p.o. twice daily as needed-Dulcolax 10 mg rectally daily as needed-Senna lax 8.6mg daily-Miralax 17gm daily-manageable Disposition: percocet 10/325mg q6h prn pain , gabapentin 100mg q8h sent to [facility]/pharmacy #[id number] [address] [address] [address] [facility] [place] [address] [address] Patient has failed conservative medical therapy.Patient will require monitoring while utilize narcotic medications for any adverse effects, and will adjust as neededPlan of care discussed with patient and nurseAll diagnostics of last 24 hours been reviewed. Risks versus benefits of opioid medications were reviewed to include, but not limited to respiratory depression, accidental overdose, altered mental status, sudden , constipation which could result in bowel obstruction, seizures, withdrawal, dependency addiction, risk for falls. Case discussed with Dr Ng whom agrees. Thank you for the consultation. [place] DIS[employer] HEARING OFFICER:-database searched, no information found Kingsley Ng 10/08/222044:Attestations Physician AttestationAgree w/findings plan:The patient was seen and examined by Ben Klein. I personally developed the care plan, which was continued by the mid-level provider. I was immediately available. at 1124 at 2046 RPT #:[id number] OF REPORTPRProgress [id number]:44:00G.[id number] able for patient ecfyPHFKMMTMULUKXP2853-53-16Q26:24:38 [facility] 2022-09-20 06:21:00 [id number]+Wfs9Mq3hC 8iVNJ+zpYIQUOBiomZL1O40dVqc3925-19-73P07:21:00 [facility] HospitalRe[facility] Progress NoteREPORT#:[id number] REPORT STATUS: SignedDATE:09/20/22 TIME: 06 PATIENT: KARMA ROWLAND UNIT #: [id number]#: [id number] [address] [birth year] AGE: 56 SEX: M ATTEND[facility] Mj Vences [facility] AUTHOR: Guero Candelaria * ALL edits or amendments must be made on the electronic/computer document * SubjectiveChief complaint:Rehab follow-upDoing betterBKA site without bleedingGeneralized and scrotal edema slowly improvingBP improvedEating 75-100% at bedside+ BMDenies DICKENS/N/V/D/CP14 systems reviewed and neg. except that above.History of present illness:56 yo HAM with long h/o DM, and HTN who was admitted for fever, flulike symptomsand altered mental status on 08/18. He was doing well until about 3 days prior toadmission when he noted blister to have formed on the dorsum of his foot. His foot started progressively getting more swollen and the blisters started enlarging and extending to his lateral foot and ankle. He started feeling weak and nauseated. He was noted to have altered mentation and was brought to our ER.He was noted to be in DKA with Blood sugars greater than 600. He was seen by podiatry and surgery for BLE wounds and infection. He was treated in ICU for sepsis and DKA. He underwent incisional and excisional debridement of right footand right ankle by podiatry. Patient also found to have prostate abscess underwent transrectal ultrasound aspiration of abscess and transurethral resection of prostate and unroofing of abscess by urology Dr. Du. Endocrinology treated the DKA and blood sugars much improved. Patient's right foot was not salvageable and patient underwent right BKA by Dr. LEROY on 08/28. Patient blood cultures showed MRSA. Patient continued on antibiotics as per ID. MRI of the pelvis and foot completed. Patient required multiple PRBCs for anemia. Patient was found to have a possible small hematoma of the left calf onultrasound. He complains of pain and swelling of the left ankle. Patient hemodynamically stable and plans are to be transferred to stepdown unit. He is on heparin subcu for VTE. After surgery he is now being mobilized by PT and OT.He is wearing a maxine-tech orthotic for right knee/BKA protection. Prior to admission the patient was independent living in a single-story house with his spouse with a few steps up to front and back door. 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 is at bedside. Patient denies nausea, vomiting, fever, chills, chest pain, shortness of breath with dizziness. He is requiring IV Dilaudid for pain control. Mental status back to baseline. Pt is progressing slowly with therapy d/t weakness and pain, self care deficit, decreased endurance and balance, and decreased functional mobility. Pt requiring acute inpt rehab for multidisciplinary team of nursing, therapy, and physicians. Pt iswilling and able to partici- kathleen in 3 hr/day inpt rehab to d/c home safely. Pt's prior level of function was independent. Objective GeneralVS:Vital Signs: Date Time Temp Pulse Resp B/P B/P Pulse O2 O2 Flow FiO2 Mean Ox Delivery Rate 09/20 0003 97.9 85 16 147/75 99.3 98 09/19 1919 98.1 90 16 157/43 81.1 98 09/19 1528 97.9 86 18 143/74 96.9 95 Room air 09/19 0655 98.4 90 17 138/68 91.6 98 Room air PATIENT WEIGHT: Weight (lb): 167Weight (oz): 12.35Weight (kg): 76.100 Medications:Active Meds + DC'd Last 24 HrsInsulin Glargine (Semglee) 17 UNIT BEDTIME SUBQ Magnesium Sulfate (MAGNESIUM SULFATE 2GM/SWFI 50ML) 50 ML ONCE ONE IV (DC) Prednisone (predniSONE) 60 MG DAILY 0600 PO Daptomycin (CUBICIN 500MG) 500 MG Q24H IV Sodium Chloride (SODIUM CHLORIDE 0.9%) 50 MLHydralazine HCl (APRESOLINE) 75 MG Q8HR PO Insulin Human Lispro (HUMALOG) 10 UNIT AC SUBQ Insulin Glargine (Semglee) 20 UNIT BEDTIME SUBQ (DC) Meropenem (MEROPENEM) 500 MG Q8H IV Sterile Water (WATER FOR INJECTION) 10 MLCarvedilol (COREG) 25 MG C BK DIN PO Gabapentin (NEURONTIN) 100 MG Q8HR PO Oxycodone/Acetaminophen (PERCOCET 5/325MG TAB) 2 TAB Q4H PRN PRN PO Folic Acid (FOLIC ACID) 2 MG DAILY PO Multivitamins (TAB-A-MOHAN) 1 TAB DAILY PO Furosemide (LASIX 20MG INJ) 20 MG BLOOD-DOSE BETWEEN IV (CKD) Sodium Chloride (SODIUM CHLORIDE) 10 ML ASDIR IV Pantoprazole Sodium (PROTONIX) 40 MG Q12HR IV Polyethylene Glycol (MIRALAX) 17 GM DAILY PO Sennosides (Senna Lax 8.6 MG TABLET) 8.6 MG DAILY PO Sodium Chloride (SODIUM CHLORIDE) 10 ML ASDIR PRN IV Amitriptyline HCl (ELAVIL) 25 MG BEDTIME PO Zinc Oxide (ZINC OXIDE 30 GM OINTMENT) 1 APPLIC DAILY TOPICAL Sterile Water (WATER FOR IRRIGATION) DRESSING CHANGE ASDIR PRN IRR Insulin Human Lispro (HUMALOG) 0 AC HS SUBQ Dextrose/Water (DEXTROSE 10% IN WATER) 125 ML ASDIR PRN IV (CKD) Dextrose/Water (DEXTROSE 10% IN WATER) 250 ML ASDIR PRN IV (CKD) Glucagon (GLUCAGON) 1 MG ASDIR PRN IM Lidocaine (LIDODERM) 1 PATCH DAILY TOPICAL Acetaminophen (TYLENOL) 650 MG Q6H PRN PRN PO Bisacodyl (DULCOLAX) 10 MG DAILY PRN PRN RECTAL Docusate Sodium (COLACE) 100 MG Q12H PRN PRN PO Hydralazine HCl (APRESOLINE) 10 MG Q6H PRN PRN IV Ondansetron HCl (ZOFRAN) 4 MG Q6H PRN PRN IV Functional ProgressFunctional progress: PT daily note comment: S. PATIENT REPORTED DEC SWELLING TO LE AND IMPROVED KIDNEY FUNCTION , STATES HE IS HAPPY TO IMPROVE WITH STAND PIVOT TRANSFERS USING RW. PATIENT REPORTS FEELING STRONGER AND STAES HIS IS FEELING MORE COMFORTABLE WITH JOAN WRAPPING R STUMP O. PATIENT SUPINE IN BED WORKED ON LE EX TO INCREASE STRNEGTH, EDUCATED SPOUSE ON STUMP WRAPPING, SPOUSE REPORTED MULTIPLE DRS HAVE EXAMINED STUMP TODAY. PATIENT ABLE TO SIT U PEOB WITH MOD [...] PIVOT TRANSFERS TO [employer]OVE[employer]. REQUIRD MOD A FORSIT TO STANDS USING AND CGA FOR PIVOT TO [employer]. PATIENT WORKED ON LE STRNEGTHENING AT 10DEGREE INCLINE 10 REPSX 6 STEPS, INCREAESD TO 15 DEGREES 2 X 10 REPS. LOCKED AT 6 POSITION . PATIENT WORKED ON STAND PIVOT FROM [employer] HIGHER SURFACE TO WC WITH MIN A FOR SAFETY . 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 P, CONTINUE WITH POC WITH AN EMPHASIS ON TRANSFERS WITH RW RESIDUAL LIMB CARE . CRR TRANSFERS AND STRENGTHENING Physical ExamGeneral appearance: alert, awakePsych: alert, normal affect, oriented x 3HEENT: anicteric, sclera clearNeck: supple, no JVDCardiovascular: S1/S2, no murmurRespiratory: aerating well, clear bilaterallyAbdomen: bowel sounds present, non-distended, soft, non-tenderSkin: no rash, R BKA HEALING. L ankle/foot wrapped with kerlixMusculoskeletal - general: Musculoskeletal - general: swelling (LLE, calve NT, homans neg), BUE 5/5, LLE4/5, R hip 3-Neuro/DIRECTOR OPERATING ROOM: alert, oriented X 3, CNII-XII intact ResultsFindings/Data:Laboratory Tests 09/20 09/19 09/19 09/19 09/19 0458 [...] (Auto) (14.0 - 32.0 %) 16.5 17.4 Lenoir % (Auto) (4.8 - 9.0 %) 8.4 6.9 Eos % (Auto) (0.3 - 3.7 %) 2.4 0.1 L Baso % (Auto) (0.0 - 2.0 %) 0.2 0.1 Neut # (Auto) (2.0 - 7.6 x10 3/uL) 9.50 H 7.91 H Lymph # (Auto) (1.0 - 3.8 x10 3/uL) 2.19 1.85 Lenoir # (Auto) (0.1 - 0.8 x10 3/uL) 1.11 H 0.73 Eos # (Auto) (0.0 - 0.2 x10 3/uL) 0.32 H 0.01 Baso # (Auto) (0.0 - 0.2 x10 3/uL) 0.02 0.01 Abs Immat Gran (auto) (0.00 - 0.03 x10 3/uL) 0.14 H 0.10 H Add Manual Diff NO NO Immature Gran % (0.0 - 2.0 %) 1.1 0.9 Nucleated RBC % (0 - 0 %) 0.0 0.0 Nucleated RBCs # (Man) (0.0 - 0.1 x10 3/uL) 0.00 0.00 Diagnosis, Assessment PlanFree Text A P:Assessment:Severe Gas gangrene right foot and right ankle associated with osteomyelitis andnecrotizing fasciitisS/p surgical debridement and washout4: S/p right BKA-Dr. Greenberggnificant impairment in self-care, ADLs and functional mobilityImpaired mobility and gaitAcute postoperative pain right BKADiabetic polyneuropathyDKA, DM 2, poorly controlled, A1c greater than 14PADMRSA bacteremia/sepsis-treated on acuteAKISevere hyponatremia-resolvedHTNAcute on chronic anemia requiring multiple transfusions, possible GI bleedLeft calf hematomaEdema and clinical arthritis left ankleEarly decubitus to left heel/DTI dorsal left midfootProstatic abscess 08/26: S/p transrectal ultrasound aspiration of abscess and transurethral resection of prostate and unroofing of abscess09/12: Echo: EF 55-59%, grade 1 diastolic dysfunction09/02: JIMENA negative for vegetationMRSA OF NARES4:s/p EGD and colonoscopy. EGD showed mild gastritis. Colonoscopy showed rectal polyp that was resected by snare (tubular adenoma)-repeat colonoscopy in 5 years Plan:-PLOF: Independent with transfers and gait-Amputee rehab program-Continue PT and OT-15/12 rehabilitation nursing care.-Case management for safe discharge planning.-Decubitus prevention-Early decubitus to left heel/DTI dorsal left midfoot-zinc oxide to the foot, foam, offloading, podiatry managing-DVT prophylaxis-SCD left leg-Strict fall and safety precautions-Work on bed mobility, transfer training, ADLs, pre-gait and gait exercises-Increase endurance and strength-Monitor pain with therapies-OOB to chair-Monitor p.o. intake and nutrition, albumin 1.3, prealbumin less than 5, dietaryconsultation, protein supplements to promote gjvwndt-Wutbwdfy-I0c 14, tight glycemia control- endocrine on board, insulin adjustments-Endocrinology, ID, podiatry, cardiology, IM consulted-Pain management adjusting pain medications-Anemia, patient required multiple units of PRBCs on acute, FOBT positive-IV Protonix-consult GI-serial H H-no evidence of gross bleeding-discussed with Dr. TrinidadSuyeoepo-Wrknvavbycsf-xyxsiisns qkmcwqrw-VAF-cxsafm-CW Senokot and MiraLAX, DSP-MRSA OF NARES on Bactroban protocol-LLE edema-venous Doppler with complex heterogeneous hypoechoic fluid collectionin the left calf region measuring 8.4, 2.8, 2.5 cm suggestive of hematoma. On low-dose Lasix. Joan wrap LLE-LE edema could be related to hypoalbuminemia leading to third spacing-edema improving-Generalized edema-some shortness of breath and abdominal distention-cardiology gave a dose of IV Lasix-monitor urine output, daily weights-SOB resolved-09/05-venous Doppler of LLE-negative for DVT-Joan wrap dressing and eruoqqegi-Nlvoeu-birldfecrq 8.3, 7.7, 8.2, 7.6, 8 transfused 2 units of PRBC on 09/05-09/08: s/p EGD and colonoscopy. EGD showed mild gastritis. Colonoscopy showed rectal polyp that was resected by snare. Anemia likely secondary to chronic kidney disease. Consult renal.-Pathology of polyp came back as tubular adenoma. recommend repeating colonoscopy in 5 years as per GI-Consider video capsule endoscopy as outpt if evidence of dropping H/H-Renal ultrasound negative-09/19/2022 blood pressure better, sodium 139, potassium 3.8, CO2 22, BUN 72 up from 66, creatinine 2.3 up from 2.2, will hold off diuretics, urine output reported 2 L, magnesium 1.69 we will give magnesium sulfate 2 g IV x1, continue prednisone-as per renal-MRSA bacteremia and prostatic abscess-WBC 13.3-monitor on Merrem and Daptomycintil 09/24 as per ID-Lasix as per nephrology-Completed Tdxj-Ohercx-1/21: Echo-EF 55-60%, indeterminate diastolic function parameters as per cardio-BP continues to be elevated, Hydralazine increased to 75 mg TID, cont Metoprolol to 25 mg BID-BS better but likely to increase with re-initiation of steroids x3 days startedby Nephrology for AIN-Endo adjusting insulin-Car transfer training 09/23-Creatinine continues to improve-discussed with patient and about renal issues are improving-Advance therapies as tolerated-discussed treatment plan with patient and -Right LKI-nwieyvf-zcsgqzog resolved, dressings changed today-no bleeding after heparin discontinued, SCD to left leg-Patient continue to make progress. Emphasizing transfers with rolling walker and residual limb care. PM RPlease see team note.Plan and goals discussed with the patient. I agree with the teams findingELOS- [09/24] on IV antibiotics until 3DC-Home with -Home healthDME-bedside commode, sliding board, wheelchair, drop arm bedside commode Total time 33 minutes greater than 50% of the time spent examining patient, discussing with patient about BKA incision improving, no bleeding, improvement in renal function, on steroids, medical issues, anemia, amputee rehab, dischargeplans, rehab plan of care, goals, therapies, progress, labs, medications. EMR and MAR is reviewed. All questions answeredConsultants: cardiology, endocrinology, hospitalist, infectious disease, podiatryRehab attestation:Face to face exam completed. Treatment plan discussed with patient. Meets continued stay criteria. Agree with interdisciplinary treatment plan. at 1340 [facility] #:[id number] OF REPORTPRProgress alwq1134-93-23Y73:21:00G.[id number] able for patient eblxIYUIKJDAAJKPYA9618-80-85A44:40:40 [facility] 2022-09-19 20:22:00 [id number] +lJHOG+g/vhPt0ajlynYEbwWuHqWa mUUTG4OcEpocSoU0IOv+rF4QShn9382-02-12N04:22:00 [facility] Progress NoteREPORT#:[id number] REPORT STATUS: SignedDATE:09/19/22 TIME: 2021 PATIENT: KARMA ROWLAND UNIT #: [id number]#: [id number] [place] [facility] [place]DOB: [birth year] AGE: 56 SEX: M ATTEND: Mj Vences MDADM AUTHOR: Liam Pedersen DPM * ALL edits or amendments must be made on the electronic/computer document * SubjectiveChief complaint:left heel ulcer. left ankle painPatient reports: no confusion, no diarrhea, no fatigue, no heartburn Objective GeneralVS:Last Documented: Result Date Time Pulse Ox 98 09/19 1918 B/P 157/43 09/19 1918 B/P Mean 81.1 09/19 1918 Temp 36.7 09/19 1918 Pulse 90 09/19 1918 Resp 16 09/19 1918 O2 Delivery Room air 09/19 1528 O2 Flow Rate 2 09/08 1322 PATIENT WEIGHT: Weight (lb): 167Weight (oz): 12.35Weight (kg): 76.100 Medications:Active Meds + DC'd Last 24 HrsInsulin Glargine (Semglee) 17 UNIT BEDTIME SUBQ Magnesium Sulfate (MAGNESIUM SULFATE 2GM/SWFI 50ML) 50 ML ONCE ONE IV (DC) Prednisone (predniSONE) 60 MG DAILY 0600 PO Daptomycin (CUBICIN 500MG) 500 MG Q24H IV Sodium Chloride (SODIUM CHLORIDE 0.9%) 50 MLFurosemide (LASIX 40 mg/4 mL INJECTION) 40 MG Q8HR IV (DC) Hydralazine HCl (APRESOLINE) 75 MG Q8HR PO Insulin Human Lispro (HUMALOG) 10 UNIT AC SUBQ Insulin Glargine (Semglee) 20 UNIT BEDTIME SUBQ (DC) Meropenem (MEROPENEM) 500 MG Q8H IV Sterile Water (WATER FOR INJECTION) 10 MLCarvedilol (COREG) 25 MG C BK DIN PO Gabapentin (NEURONTIN) 100 MG Q8HR PO Oxycodone/Acetaminophen (PERCOCET 5/325MG TAB) 2 TAB Q4H PRN PRN PO Folic Acid (FOLIC ACID) 2 MG DAILY PO Multivitamins (TAB-A-MOHAN) 1 TAB DAILY PO Furosemide (LASIX 20MG INJ) 20 MG BLOOD-DOSE BETWEEN IV (CKD) Sodium Chloride (SODIUM CHLORIDE) 10 ML ASDIR IV Pantoprazole Sodium (PROTONIX) 40 MG Q12HR IV Polyethylene Glycol (MIRALAX) 17 GM DAILY PO Sennosides (Senna Lax 8.6 MG TABLET) 8.6 MG DAILY PO Sodium Chloride (SODIUM CHLORIDE) 10 ML ASDIR PRN IV Amitriptyline HCl (ELAVIL) 25 MG BEDTIME PO Zinc Oxide (ZINC OXIDE 30 GM OINTMENT) 1 APPLIC DAILY TOPICAL Sterile Water (WATER FOR IRRIGATION) DRESSING CHANGE ASDIR PRN IRR Insulin Human Lispro (HUMALOG) 0 AC HS SUBQ Dextrose/Water (DEXTROSE 10% IN WATER) 125 ML ASDIR PRN IV (CKD) Dextrose/Water (DEXTROSE 10% IN WATER) 250 ML ASDIR PRN IV (CKD) Glucagon (GLUCAGON) 1 MG ASDIR PRN IM Lidocaine (LIDODERM) 1 PATCH DAILY TOPICAL Acetaminophen (TYLENOL) 650 MG Q6H PRN PRN PO Bisacodyl (DULCOLAX) 10 MG DAILY PRN PRN RECTAL Docusate Sodium (COLACE) 100 MG Q12H PRN PRN PO Hydralazine HCl (APRESOLINE) 10 MG Q6H PRN PRN IV Ondansetron HCl (ZOFRAN) 4 MG Q6H PRN PRN IV I O:24 hour I O ending at 0700: 09/19 0700 09/18 1900 Intake Total 100 480 Output Total 1999 Balance 100 -1520 Intake, Oral 100 480 Number 2 Bowel Movements Number 0 Incontinent Voids Number Voids 0 Output, Urine 2000 Dietitian nutrition assessmentThe data set between the solid lines has been imported from the dietitian's assessment. BMI Calculated: 27.1Nutrition related diagnosis: Nutrition diagnosis details: Nutrition problem: Altered nutrition labsNutrition etiology: DMNutrition signs and symptoms: HYPER/HYPOGLYCEMIA, A1C >14Nutrition prescription: CONTINUE RENAL DM DIETDietitian name: You Palmer, DIETAssessment completed: 09/18/22 Physical ExamGeneral appearance: alert, awake, orientedWound/incision: Location:left foot Site condition: dp/pt 2/4 left. light touch decreased left foot. ulcer starting at posterior left heel. eccymosis noted. early likely stage 1. left ankle has edema. pain with aggressive ROM left ankle. dorsal left midfoot is starting to have tissue injuryLE vascular pulse assess:2+ L posterior tibialis, 2+ L dorsalis pedis Considered stroke alert: noUlcer: Location: DTI dorsal left midfoot ResultsFindings/Data:Laboratory Tests: 09/19 09/19 09/19 09/19 09/19 1921 1544 1133 0501 0448Chemistry Sodium (134 - 147 mEq/L) 139 Potassium [...] H Magnesium (1.80 - 2.40 mg/dL) 1.69 LHematology WBC (4.5 - 11.0 x10 3/uL) 13.3 [...] % (Auto) (14.0 - 32.0 %) 16.5 Lenoir % (Auto) (4.8 - 9.0 %) 8.4 Eos % (Auto) (0.3 - 3.7 %) 2.4 Baso % (Auto) (0.0 - 2.0 %) 0.2 Neut # (Auto) (2.0 - 7.6 x10 3/uL) 9.50 H Lymph # (Auto) (1.0 - 3.8 x10 3/uL) 2.19 Lenoir # (Auto) (0.1 - 0.8 x10 3/uL) 1.11 H Eos # (Auto) (0.0 - 0.2 x10 3/uL) 0.32 H Baso # (Auto) (0.0 - 0.2 x10 3/uL) 0.02 Abs Immat Gran (auto) (0.00 - 0.03 0.14 Hx10 3/uL) Add Manual Diff NO Immature Gran % (0.0 - 2.0 %) 1.1 Nucleated RBC % (0 - 0 %) 0.0 Nucleated RBCs # (Man) (0.0 - 0.1 0.00x10 3/uL) 09/18 2150 Chemistry POC Glucose (70 - 110 MG/DL) 103 Diagnosis, Assessment PlanFree Text A P:DM with neuropathyearly decub ulcer left heelOA/edema left ankleearly ulcer/DTI dorsal left midfoot zinc oxide to foot and heelfoam to heelon IV abxon PO gabapentinoffloading bootace wraps to ankle, only when OOB with therapy.zinc oxide interchange with bactroban to dorsal left footConsultants: cardiology, endocrinology, hospitalist, infectious disease, podiatry at 2023 RPT #:[id number] OF REPORTPRProgress sbmn7732-28-28W02:22:00G.[id number] able for patient amisOEXLYWUQZSHFCF4043-47-30V08:23:43 [facility] 2022-09-19 15:29:00 [id number] 9XE3I7ZhzuwVjhfRTllptVubBG3Az pwTpLjgvIaRHzQ57gPawwTz/tWe4833-85-54G15:29:00 [facility] ([facility])Pain Management Progress NoteREPORT#:[id number] REPORT STATUS: SignedDATE:09/19/22 TIME: 1528 PATIENT: KARMA ROWLAND UNIT #: [id number]#: [id number] [address] [birth year] AGE: 56 SEX: M ATTEND: Mj Vences [facility] AUTHOR: Ben Klein * ALL edits or amendments must be made on the electronic/computer document * Ben Klein 09/19/22 1529:SubjectiveChief complaint:Patient seen and examined. Chart/MAR reviewed. Patient slept well overnight. No acute concerns. Pain control is good. No aggravating neuropathy symptoms. Patient being seen for Acute postoperative pain, right foot and anklegangrene, requiring BKA, Neuropathy, Constipation Patient is still requiring medications to help with managing currentproblems. No fever/chills, chest pain, orthopnea, nausea/vomiting, pruritus, orhallucinations.14 point ROS undertaken unremarkable except as noted Objective GeneralVS/I O:Vital Signs Date Temp Pulse Resp B/P B/P [...] Output, Urine 1999 PATIENT WEIGHT: Weight (lb): 167Weight (oz): 12.35Weight (kg): 76.100 Medications:Active Meds + DC'd Last 24 HrsInsulin Glargine (Semglee) 17 UNIT BEDTIME SUBQ Magnesium Sulfate (MAGNESIUM SULFATE 2GM/SWFI 50ML) 50 ML ONCE ONE IV (DC) Prednisone (predniSONE) 60 MG DAILY 0600 PO Daptomycin (CUBICIN 500MG) 500 MG Q24H IV Sodium Chloride (SODIUM CHLORIDE 0.9%) 50 MLFurosemide (LASIX 40 mg/4 mL INJECTION) 40 MG Q8HR IV (DC) Hydralazine HCl (APRESOLINE) 75 MG Q8HR PO Insulin Human Lispro (HUMALOG) 10 UNIT AC SUBQ Insulin Glargine (Semglee) 20 UNIT BEDTIME SUBQ (DC) Meropenem (MEROPENEM) 500 MG Q8H IV Sterile Water (WATER FOR INJECTION) 10 MLCarvedilol (COREG) 25 MG C BK DIN PO Gabapentin (NEURONTIN) 100 MG Q8HR PO Oxycodone/Acetaminophen (PERCOCET 5/325MG TAB) 2 TAB Q4H PRN PRN PO Folic Acid (FOLIC ACID) 2 MG DAILY PO Multivitamins (TAB-A-MOHAN) 1 TAB DAILY PO Furosemide (LASIX 20MG INJ) 20 MG BLOOD-DOSE BETWEEN IV (CKD) Sodium Chloride (SODIUM CHLORIDE) 10 ML ASDIR IV Pantoprazole Sodium (PROTONIX) 40 MG Q12HR IV Polyethylene Glycol (MIRALAX) 17 GM DAILY PO Sennosides (Senna Lax 8.6 MG TABLET) 8.6 MG DAILY PO Sodium Chloride (SODIUM CHLORIDE) 10 ML ASDIR PRN IV Amitriptyline HCl (ELAVIL) 25 MG BEDTIME PO Zinc Oxide (ZINC OXIDE 30 GM OINTMENT) 1 APPLIC DAILY TOPICAL Sterile Water (WATER FOR IRRIGATION) DRESSING CHANGE ASDIR PRN IRR Insulin Human Lispro (HUMALOG) 0 AC HS SUBQ Dextrose/Water (DEXTROSE 10% IN WATER) 125 ML ASDIR PRN IV (CKD) Dextrose/Water (DEXTROSE 10% IN WATER) 250 ML ASDIR PRN IV (CKD) Glucagon (GLUCAGON) 1 MG ASDIR PRN IM Lidocaine (LIDODERM) 1 PATCH DAILY TOPICAL Acetaminophen (TYLENOL) 650 MG Q6H PRN PRN PO Bisacodyl (DULCOLAX) 10 MG DAILY PRN PRN RECTAL Docusate Sodium (COLACE) 100 MG Q12H PRN PRN PO Hydralazine HCl (APRESOLINE) 10 MG Q6H PRN PRN IV Ondansetron HCl (ZOFRAN) 4 MG Q6H PRN PRN IV Physical ExamGeneral appearance: alert, awake, oriented, no acute distressHead/eyes: atraumatic, EOMI, normocephalic, normal conjunctiva/sclera, PERRLAENT: normal pharynx, moist mucosal membranesNeck: full range of motion, no lymphadenopathy, supple/no meningismusCardiovascular: regular rate rhythmRespiratory: clear to auscultation, no distressAbdomen: soft, non-tender, no distention, active bowel sounds in all quarants. 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: 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, no sensory deficits, CNII-XII grossly intact Considered stroke alert: noSkin: dry, intact, no rashLymphatics: axilla normalPsychiatry: normal affect ResultsFindings/data:Laboratory Tests: 09/19 09/19 09/19 09/18 09/18 1133 0501 0448 2151 1933Chemistry Sodium (134 - 147 mEq/L) 139 Potassium [...] H Magnesium (1.80 - 2.40 mg/dL) 1.69 LHematology WBC (4.5 - 11.0 x10 3/uL) 13.3 [...] % (Auto) (14.0 - 32.0 %) 16.5 Lenoir % (Auto) (4.8 - 9.0 %) 8.4 Eos % (Auto) (0.3 - 3.7 %) 2.4 Baso % (Auto) (0.0 - 2.0 %) 0.2 Neut # (Auto) (2.0 - 7.6 x10 3/uL) 9.50 H Lymph # (Auto) (1.0 - 3.8 x10 3/uL) 2.19 Lenoir # (Auto) (0.1 - 0.8 x10 3/uL) 1.11 H Eos # (Auto) (0.0 - 0.2 x10 3/uL) 0.32 H Baso # (Auto) (0.0 - 0.2 x10 3/uL) 0.02 Abs Immat Gran (auto) (0.00 - 0.03 0.14 Hx10 3/uL) Add Manual Diff NO Immature Gran % (0.0 - 2.0 %) 1.1 Nucleated RBC % (0 - 0 %) 0.0 Nucleated RBCs # (Man) (0.0 - 0.1 0.00x10 3/uL) 09/18 1611 Chemistry POC Glucose (70 - 110 MG/DL) 118 H Diagnosis, Assessment PlanFree text A P:A/P:Patient is a 56 year old male who presents with: Past Medical History: Prostate abscess, right foot foot and ankle gangrene, diabetes, hypertension, hyperlipidemiaPast Surgical History: TURP, right BKAFamily History: NoncontributorySocial History: Denies tobacco, alcohol, or drug useAllergies: NKDA Recent prostate abscess-Status post TURP with unroofing of abscess-IV antibiotics with vancomycin until 09-24-2022 Acute postoperative pain, right foot and ankle gangrene, requiring BKA-Patient is at risk for further amputations or loss of limb due to comorbid conditions-Status post right BKA 08/28/2022-DC Sheldon 10/325 1 tablet p.o. every 4 hours as needed pain scale 4 10-DC Dilaudid 0.5 mg IV daily as needed pain scale 7 10, second line therapy (09/13)-Tylenol 650 mg p.o. every 6 hours as needed pain scale 1 3-Percocet 10/325mg every 4 hours as needed, pain scale 4-10 (09/10)-Lidoderm patch to left ankle daily-IV antibiotics with vancomycin until 09-24-2022-Local wound care-manageable Diabetic peripheral neuropathy-amitriptyline 25mg PO QHS-Gabapentin 100mg every 8 hours (09/10)-manageable Hypertension-We will monitor hypertension and tachycardia due to pain, and hypotension as well as bradycardia secondary over sedation with narcotics-Hydralazine as needed Elevated LFTs-08/20/22-AST 51, ALT 22-09/03/2022-AST 15, ALT 7-Patient will require close monitoring since he is using narcotics with Tylenol Impaired functional mobility, balance, gait, and endurance-PT/OT Antalgic/Impaired gait-PT/OT-Improve strength, endurance, self-care, gait, balance, ADLs-Fall precautions per unit protocol-Pain medications as outlined above Constipation-We will monitor while utilizing opioid narcotic medications.-Adequate fluid intake also discussed.-Colace 100 mg p.o. twice daily as needed-Dulcolax 10 mg rectally daily as needed-Senna lax 8.6mg daily-Miralax 17gm daily-manageable Disposition: percocet 10/325mg q6h prn pain , gabapentin 100mg q8h sent to [facility]/pharmacy #[id number] [facility] [place] [address] ([facility]) Patient has failed conservative medical therapy.Patient will require monitoring while utilize narcotic medications for any adverse effects, and will adjust as neededPlan of care discussed with patient and nurseAll diagnostics of last 24 hours been reviewed. Risks versus benefits of opioid medications were reviewed to include, but not limited to respiratory depression, accidental overdose, altered mental status, sudden , constipation which could result in bowel obstruction, seizures, withdrawal, dependency addiction, risk for falls. Case discussed with Dr Ng whom agrees. Thank you for the consultation. [place] DISABILITY HEARING OFFICER:-database searched, no information found Kingsley gN 10/07/22 1701:Attestations Physician AttestationAgree w/findings plan:The patient was seen and examined by Ben Klein. I personally developed the care plan, which was continued by the mid-level provider. I was immediately available. at 1530 at 1708 RPT #:[id number] OF REPORTPRProgress fcxy1094-03-49M42:29:00G.[id number] able for patient dczjWNTRDQQFSCLIDT6498-30-77M67:30:36 [facility] 2022-09-19 14:59:00 [id number] CKCrKwSlUvWff+f0FhYOkqh3XzsO+ ouSWNY0YDzWjpXHFTHGLNx9a7ZP9556-42-97F79:59:00 [facility] ([facility])Endocrinology Progress NoteREPORT#:[id number] REPORT STATUS: SignedDATE:09/19/22 TIME: 1459 PATIENT: KARMA ROWLAND UNIT #: [id number]#: [id number] [address] [birth year] AGE: 56 SEX: M ATTEND: Mj Vences MDADM AUTHOR: Braxton Chapin MD * ALL edits or amendments must be made on the electronic/computer document * SubjectivePatient reports: no complaints Objective GeneralVS:Last Documented: Result Date Time Pulse Ox 98 09/19 654 B/P 138/68 09/19 654 B/P Mean 91.6 09/19 06 O2 Delivery Room air 09/19 654 Temp 36.9 09/19 06 Pulse 90 09/19 0655 Resp 17 09/19 654 O2 Flow Rate 2 09/08 1322 PATIENT WEIGHT: Weight (lb): 167Weight (oz): 12.35Weight (kg): 76.100 Medications:Active Meds + DC'd Last 24 HrsMagnesium Sulfate (MAGNESIUM SULFATE 2GM/SWFI 50ML) 50 ML ONCE ONE IV (DC) Prednisone (predniSONE) 60 MG DAILY 0600 PO Daptomycin (CUBICIN 500MG) 500 MG Q24H IV Sodium Chloride (SODIUM CHLORIDE 0.9%) 50 MLFurosemide (LASIX 40 mg/4 mL INJECTION) 40 MG Q8HR IV (DC) Hydralazine HCl (APRESOLINE) 75 MG Q8HR PO Insulin Human Lispro (HUMALOG) 10 UNIT AC SUBQ Insulin Glargine (Semglee) 20 UNIT BEDTIME SUBQ Meropenem (MEROPENEM) 500 MG Q8H IV Sterile Water (WATER FOR INJECTION) 10 MLCarvedilol (COREG) 25 MG C BK DIN PO Gabapentin (NEURONTIN) 100 MG Q8HR PO Oxycodone/Acetaminophen (PERCOCET 5/325MG TAB) 2 TAB Q4H PRN PRN PO Folic Acid (FOLIC ACID) 2 MG DAILY PO Multivitamins (TAB-A-MOHAN) 1 TAB DAILY PO Furosemide (LASIX 20MG INJ) 20 MG BLOOD-DOSE BETWEEN IV (CKD) Sodium Chloride (SODIUM CHLORIDE) 10 ML ASDIR IV Pantoprazole Sodium (PROTONIX) 40 MG Q12HR IV Polyethylene Glycol (MIRALAX) 17 GM DAILY PO Sennosides (Senna Lax 8.6 MG TABLET) 8.6 MG DAILY PO Sodium Chloride (SODIUM CHLORIDE) 10 ML ASDIR PRN IV Amitriptyline HCl (ELAVIL) 25 MG BEDTIME PO Zinc Oxide (ZINC OXIDE 30 GM OINTMENT) 1 APPLIC DAILY TOPICAL Sterile Water (WATER FOR IRRIGATION) DRESSING CHANGE ASDIR PRN IRR Insulin Human Lispro (HUMALOG) 0 AC HS SUBQ Dextrose/Water (DEXTROSE 10% IN WATER) 125 ML ASDIR PRN IV (CKD) Dextrose/Water (DEXTROSE 10% IN WATER) 250 ML ASDIR PRN IV (CKD) Glucagon (GLUCAGON) 1 MG ASDIR PRN IM Lidocaine (LIDODERM) 1 PATCH DAILY TOPICAL Acetaminophen (TYLENOL) 650 MG Q6H PRN PRN PO Bisacodyl (DULCOLAX) 10 MG DAILY PRN PRN RECTAL Docusate Sodium (COLACE) 100 MG Q12H PRN PRN PO Hydralazine HCl (APRESOLINE) 10 MG Q6H PRN PRN IV Ondansetron HCl (ZOFRAN) 4 MG Q6H PRN PRN IV Physical ExamGeneral appearance: alert, awake Diagnosis, Assessment PlanHospital course to date:Laboratory Tests: 09/19 09/19 09/19 09/18 09/18 1133 0501 0448 2151 1933Chemistry Sodium (134 - 147 mEq/L) 139 Potassium [...] H Magnesium (1.80 - 2.40 mg/dL) 1.69 LHematology WBC (4.5 - 11.0 x10 3/uL) 13.3 [...] % (Auto) (14.0 - 32.0 %) 16.5 Lenoir % (Auto) (4.8 - 9.0 %) 8.4 Eos % (Auto) (0.3 - 3.7 %) 2.4 Baso % (Auto) (0.0 - 2.0 %) 0.2 Neut # (Auto) (2.0 - 7.6 x10 3/uL) 9.50 H Lymph # (Auto) (1.0 - 3.8 x10 3/uL) 2.19 Lenoir # (Auto) (0.1 - 0.8 x10 3/uL) 1.11 H Eos # (Auto) (0.0 - 0.2 x10 3/uL) 0.32 H Baso # (Auto) (0.0 - 0.2 x10 3/uL) 0.02 Abs Immat Gran (auto) (0.00 - 0.03 0.14 Hx10 3/uL) Add Manual Diff NO Immature Gran % (0.0 - 2.0 %) 1.1 Nucleated RBC % (0 - 0 %) 0.0 Nucleated RBCs # (Man) (0.0 - 0.1 0.00x10 3/uL) 09/18 1611 Chemistry POC Glucose (70 [...] % (Auto) (14.0 - 32.0 %) 17.4 Lenoir % (Auto) (4.8 - 9.0 %) 6.9 Eos % (Auto) (0.3 - 3.7 %) 0.1 L Baso % (Auto) (0.0 - 2.0 %) 0.1 Neut # (Auto) (2.0 - 7.6 x10 3/uL) 7.91 H Lymph # (Auto) (1.0 - 3.8 x10 3/uL) 1.85 Lenoir # (Auto) (0.1 - 0.8 x10 3/uL) 0.73 Eos # (Auto) (0.0 - 0.2 x10 3/uL) 0.01 Baso # (Auto) (0.0 - 0.2 x10 3/uL) 0.01 Abs Immat Gran (auto) (0.00 - 0.03 x10 3/uL) 0.10 H Add Manual Diff NO Immature Gran % (0.0 - 2.0 %) 0.9 Nucleated RBC % (0 - 0 %) 0.0 Nucleated RBCs # (Man) (0.0 - 0.1 x10 3/uL) 0.00 Laboratory Tests: 09/17 09/17 09/17 09/17 09/17 [...] (Auto) (14.0 - 32.0 %) 10.2 L [place] % (Auto) (4.8 - 9.0 %) 2.9 L Eos % (Auto) (0.3 - 3.7 %) 0.0 L Baso % (Auto) (0.0 - 2.0 %) 0.1 Neut # (Auto) (2.0 - 7.6 x10 3/uL) 7.58 Lymph # (Auto) (1.0 - 3.8 x10 3/uL) 0.91 L [place] # (Auto) (0.1 - 0.8 x10 3/uL) 0.26 Eos # (Auto) (0.0 - 0.2 x10 3/uL) 0.00 Baso # (Auto) (0.0 - 0.2 x10 3/uL) 0.01 Abs Immat Gran (auto) (0.00 - 0.03 x10 3/uL) 0.14 H Add Manual Diff NO Immature Gran % (0.0 - 2.0 %) 1.6 Nucleated RBC % (0 - 0 %) 0.0 Nucleated RBCs # (Man) (0.0 - 0.1 x10 3/uL) 0.00 Laboratory Tests: 09/16 09/16 09/16 09/16 1549 1441 1110 0553 Chemistry POC Glucose (70 - 110 MG/DL) 62 L 60 L 148 H 195 H 09/16 09/15 0455 1937 Chemistry Sodium [...] % (Auto) (14.0 - 32.0 %) 18.6 [place] % (Auto) (4.8 - 9.0 %) 6.7 Eos % (Auto) (0.3 - 3.7 %) 0.2 L Baso % (Auto) (0.0 - 2.0 %) 0.1 Neut # (Auto) (2.0 - 7.6 x10 3/uL) 6.99 Lymph # (Auto) (1.0 - 3.8 x10 3/uL) 1.77 [place] # (Auto) (0.1 - 0.8 x10 3/uL) 0.64 Eos # (Auto) (0.0 - 0.2 x10 3/uL) 0.02 Baso # (Auto) (0.0 - 0.2 x10 3/uL) 0.01 Abs Immat Gran (auto) (0.00 - 0.03 x10 3/uL) 0.10 H Add Manual Diff NO Immature Gran % (0.0 - 2.0 %) 1.0 Nucleated RBC % (0 - 0 %) 0.0 Nucleated RBCs # (Man) (0.0 - 0.1 x10 3/uL) 0.00 Laboratory Tests: 09/15 09/15 09/15 09/15 1640 1304 1154 0519 Chemistry POC Glucose (70 - 110 MG/DL) 137 H 126 H 309 H Urines Urine Color (YEL/STRAW) YELLOW Urine Appearance (CLEAR) SL CLOUDY Urine pH (5.0 - 7.0) 5.0 Ur Specific [place] (1.005 - 1.030) 1.013 Urine Protein (NEGATIVE) [...] Random Total Protein (mg/dL) 283 09/15 09/14 0565 4291 Chemistry Sodium (134 - 147 mEq/L) 132 [...] (Auto) (14.0 - 32.0 %) 11.3 L [place] % (Auto) (4.8 - 9.0 %) 3.2 L Eos % (Auto) (0.3 - 3.7 %) 0.0 L Baso % (Auto) (0.0 - 2.0 %) 0.1 Neut # (Auto) (2.0 - 7.6 x10 3/uL) 7.35 Lymph # (Auto) (1.0 - 3.8 x10 3/uL) 0.98 L [place] # (Auto) (0.1 - 0.8 x10 3/uL) 0.28 Eos # (Auto) (0.0 - 0.2 x10 3/uL) 0.00 Baso # (Auto) (0.0 - 0.2 x10 3/uL) 0.01 Abs Immat Gran (auto) (0.00 - 0.03 x10 3/uL) 0.04 H Add Manual Diff NO Immature Gran % (0.0 - 2.0 %) 0.5 Nucleated RBC % (0 - 0 %) 0.0 Nucleated RBCs # (Man) (0.0 - 0.1 x10 3/uL) 0.00 Microbiology: Date/Time Procedure - Status Source Growth 09/15 0515 MRSA DNA Surveillance Screen - COMP NASAL Laboratory Tests: 09/14 09/14 09/14 09/14 09/13 1130 0700 0543 3170 1937Chemistry Sodium (134 - 147 mEq/L) 132 L [...] H Calcium (8.0 - 10.5 mg/dL) 7.5 LHematology WBC (4.5 - 11.0 x10 3/uL) 9.5 [...] (Auto) (14.0 - 32.0 %) 13.9 L [place] % (Auto) (4.8 - 9.0 %) 5.1 Eos % (Auto) (0.3 - 3.7 %) 0.0 L Baso % (Auto) (0.0 - 2.0 %) 0.1 Neut # (Auto) (2.0 - 7.6 x10 3/uL) 7.58 Lymph # (Auto) (1.0 - 3.8 x10 3/uL) 1.31 [place] # (Auto) (0.1 - 0.8 x10 3/uL) 0.48 Eos # (Auto) (0.0 - 0.2 x10 3/uL) 0.00 Baso # (Auto) (0.0 - 0.2 x10 3/uL) 0.01 Abs Immat Gran (auto) (0.00 - 0.03 0.07 Hx10 3/uL) Add Manual Diff NO Immature Gran % (0.0 - 2.0 %) 0.7 Nucleated RBC % (0 - 0 %) 0.0 Nucleated RBCs # (Man) (0.0 - 0.1 0.00x10 3/uL) 04/22 1629 Chemistry POC Glucose (70 - 110 MG/DL) 130 H Laboratory Tests: 09/13 09/13 09/13 09/12 1105 0552 0459 2016 Chemistry Sodium (134 - 147 mEq/L) [...] (Auto) (14.0 - 32.0 %) 10.4 L [place] % (Auto) (4.8 - 9.0 %) 3.5 L Eos % (Auto) (0.3 - 3.7 %) 0.0 L Baso % (Auto) (0.0 - 2.0 %) 0.1 Neut # (Auto) (2.0 - 7.6 x10 3/uL) 8.34 H Lymph # (Auto) (1.0 - 3.8 x10 3/uL) 1.02 [place] # (Auto) (0.1 - 0.8 x10 3/uL) 0.34 Eos # (Auto) (0.0 - 0.2 x10 3/uL) 0.00 Baso # (Auto) (0.0 - 0.2 x10 3/uL) 0.01 Abs Immat Gran (auto) (0.00 - 0.03 x10 3/uL) 0.07 H Add Manual Diff NO Immature Gran % (0.0 - 2.0 %) 0.7 Nucleated RBC % (0 - 0 %) 0.0 Nucleated RBCs # (Man) (0.0 - 0.1 x10 3/uL) 0.00 Microbiology: Date/Time Procedure - Status Source Growth [...] % (Auto) (14.0 - 32.0 %) 15.0 [place] % (Auto) (4.8 - 9.0 %) 7.9 Eos % (Auto) (0.3 - 3.7 %) 3.8 H Baso % (Auto) (0.0 - 2.0 %) 0.3 Neut # (Auto) (2.0 - 7.6 x10 3/uL) 6.34 Lymph # (Auto) (1.0 - 3.8 x10 3/uL) 1.31 [place] # (Auto) (0.1 - 0.8 x10 3/uL) 0.69 Eos # (Auto) (0.0 - 0.2 x10 3/uL) 0.33 H Baso # (Auto) (0.0 - 0.2 x10 3/uL) 0.03 Abs Immat Gran (auto) (0.00 - 0.03 x10 3/uL) 0.06 H Add Manual Diff NO Immature Gran % (0.0 - 2.0 %) 0.7 Nucleated RBC % (0 - 0 %) 0.0 Nucleated RBCs # (Man) (0.0 - 0.1 x10 3/uL) 0.00 Toxicology Random Vancomycin (mcg/mL) 16.7 Laboratory Tests: 09/11 09/11 09/11 09/11 09/11 1532 1445 1114 0541 0445Chemistry Sodium (134 - 147 mEq/L) 134 Potassium [...] MG/DL) 4.7 Magnesium (1.80 - 2.40 mg/dL) 1.90Hematology WBC (4.5 - 11.0 x10 3/uL) 7.9 [...] % (Auto) (14.0 - 32.0 %) 16.1 [place] % (Auto) (4.8 - 9.0 %) 9.1 H Eos % (Auto) (0.3 - 3.7 %) 5.6 H Baso % (Auto) (0.0 - 2.0 %) 0.5 Neut # (Auto) (2.0 - 7.6 x10 3/uL) 5.35 Lymph # (Auto) (1.0 - 3.8 x10 3/uL) 1.27 [place] # (Auto) (0.1 - 0.8 x10 3/uL) 0.72 Eos # (Auto) (0.0 - 0.2 x10 3/uL) 0.44 H Baso # (Auto) (0.0 - 0.2 x10 3/uL) 0.04 Abs Immat Gran (auto) (0.00 - 0.03 0.06 Hx10 3/uL) Add Manual Diff NO Immature Gran % (0.0 - 2.0 %) 0.8 Nucleated RBC % (0 - 0 %) 0.0 Nucleated RBCs # (Man) (0.0 - 0.1 0.00x10 3/uL)Toxicology Random Vancomycin (mcg/mL) 18.3 09/10 1851 Chemistry POC Glucose (70 - 110 MG/DL) 97 Laboratory Tests: 09/10 09/10 09/10 09/10 09/10 1715 1625 1430 1007 0545Chemistry Sodium (134 - 147 mEq/L) 135 Potassium [...] MG/DL) 4.6 Magnesium (1.80 - 2.40 mg/dL) 1.89Hematology WBC (4.5 - 11.0 x10 3/uL) 8.6 [...] % (Auto) (14.0 - 32.0 %) 15.5 [place] % (Auto) (4.8 - 9.0 %) 8.5 Eos % (Auto) (0.3 - 3.7 %) 5.5 H Baso % (Auto) (0.0 - 2.0 %) 0.4 Neut # (Auto) (2.0 - 7.6 x10 3/uL) 5.94 Lymph # (Auto) (1.0 - 3.8 x10 3/uL) 1.33 [place] # (Auto) (0.1 - 0.8 x10 3/uL) 0.73 Eos # (Auto) (0.0 - 0.2 x10 3/uL) 0.47 H Baso # (Auto) (0.0 - 0.2 x10 3/uL) 0.03 Abs Immat Gran (auto) (0.00 - 0.03 0.06 Hx10 3/uL) Add Manual Diff NO Immature Gran % (0.0 - 2.0 %) 0.7 Nucleated RBC % (0 - 0 %) 0.0 Nucleated RBCs # (Man) (0.0 - 0.1 0.00x10 3/uL)Toxicology Random Vancomycin (mcg/mL) 15.7 09/10 09/09 0541 1911 Chemistry POC Glucose (70 - 110 MG/DL) 154 H 102 Recent Impressions:ULTRASOUND - US RETROPERITONEAL COM 09/10 1311 Report Impression - Status: SIGNED Entered: 09/10/2022 1503 IMPRESSION: No acute findings. Impression By: Yared Mares M.D. Laboratory Tests: 09/09 09/09 09/09 09/09 09/09 [...] % (Auto) (14.0 - 32.0 %) 16.1 [place] % (Auto) (4.8 - 9.0 %) 9.2 H Eos % (Auto) (0.3 - 3.7 %) 4.7 H Baso % (Auto) (0.0 - 2.0 %) 0.4 Neut # (Auto) (2.0 - 7.6 x10 3/uL) 6.38 Lymph # (Auto) (1.0 - 3.8 x10 3/uL) 1.49 [place] # (Auto) (0.1 - 0.8 x10 3/uL) 0.85 H Eos # (Auto) (0.0 - 0.2 x10 3/uL) 0.43 H Baso # (Auto) (0.0 - 0.2 x10 3/uL) 0.04 Abs Immat Gran (auto) (0.00 - 0.03 x10 3/uL) 0.05 H Add Manual Diff NO Immature Gran % (0.0 - 2.0 %) 0.5 Nucleated RBC % (0 - 0 %) 0.0 Nucleated RBCs # (Man) (0.0 - 0.1 x10 3/uL) 0.00 Retic Count (auto) (0.3 - 2.3 [...] (Auto) (14.0 - 32.0 %) 13.7 L [place] % (Auto) (4.8 - 9.0 %) 7.2 Eos % (Auto) (0.3 - 3.7 %) 4.8 H Baso % (Auto) (0.0 - 2.0 %) 0.3 Neut # (Auto) (2.0 - 7.6 x10 3/uL) 6.64 Lymph # (Auto) (1.0 - 3.8 x10 3/uL) 1.24 [place] # (Auto) (0.1 - 0.8 x10 3/uL) 0.65 Eos # (Auto) (0.0 - 0.2 x10 3/uL) 0.43 H Baso # (Auto) (0.0 - 0.2 x10 3/uL) 0.03 Abs Immat Gran (auto) (0.00 - 0.03 x10 3/uL) 0.06 H Add Manual Diff NO Immature Gran % (0.0 - 2.0 %) 0.7 Nucleated RBC % (0 - 0 %) 0.0 Nucleated RBCs # (Man) (0.0 - 0.1 x10 3/uL) 0.00 Laboratory Tests: 09/07 09/07 09/07 09/07 09/07 1554 1137 1127 0618 0510 Chemistry Creatinine (0.6 - 1.3 mg/dL) 1.4 H POC Glucose (70 - 110 MG/DL) 112 H 51 L 42 L 135 H Hematology Hgb (12.5 - 16.9 [...] 1739 Occult Blood - COMP STOOL Recent Impressions:RADIOLOGY - XR ABDOMEN 1V (KUB) 09/04 1648 Report Impression - Status: SIGNED Entered: 09/04/2022 1757 IMPRESSION: Benign appearance of the abdomen.Impression By: [email or web address] - Roger Parra M.D.ULTRASOUND - [facility]I/LTD 09/05 1146 Report Impression - Status: SIGNED Entered: 09/05/2022 1333 IMPRESSION: 1. No evidence of deep vein thrombosis. 2. Complex heterogeneous hypoechoic fluid collection in the left calf region measuring 8.4 x 2.8 x 2.5 cm; there is no internal vascularity or peripheral hyperemia. May represent a hematoma.Impression By: [id number] - Mert Ga M.D.RADIOLOGY - XR CHEST 1 V 09/05 1432 Report Impression - Status: SIGNED Entered: 09/05/2022 1515 IMPRESSION: Minimal bibasilar pulmonary opacitiesImpression By: Yared Mares M.D. Laboratory Tests: 09/04 09/04 09/04 09/04 09/04 [...] COLB STOOL 1.Diabetes mellitus type 2 uncontrolled complications.2. Status post right BKA3. Status post gangrene of the right foot.4. Sepsis5. Prostate abscess.6. AnemiaBlood sugar 61-162 mg/dL.H/H 8.11/17.Adjust insulin dose.PT and OT. at 1500 RPT #:[id number] OF REPORTPRProgress [id number]:59:00G.[id number] able for patient unluQJEOUUFGDYDFGB9307-24-99O09:01:00 [facility] 2022-09-19 14:14:00 [id number] /[id number] sKXnWb/R+YxQ+B3DmJthVAuzBUW3395-19-26H07:14:00 [facility] ([facility]Re[facility] Progress NoteREPORT#:[id number] REPORT STATUS: SignedDATE:09/19/22 TIME: 1414 PATIENT: KARMA ROWLAND UNIT #: [id number]#: [id number] [address] [birth year] AGE: 56 SEX: M ATTEND: Mj Vences AUTHOR: Mj Vences MD * ALL edits or amendments must be made on the electronic/computer document * SubjectiveChief complaint:Rehab follow-upFeels good todayBKA site without bleedingGeneralized and scrotal edema slowly improvingBP improvedEating 75-100% at bedside+ BMDenies DICKENS/N/V/D/CP14 systems reviewed and neg. except that above.History of present illness:56 yo HAM with long h/o DM, and HTN who was admitted for fever, flulike symptomsand altered mental status on 08/18. He was doing well until about 3 days prior toadmission when he noted blister to have formed on the dorsum of his foot. His foot started progressively getting more swollen and the blisters started enlarging and extending to his lateral foot and ankle. He started feeling weak and nauseated. He was noted to have altered mentation and was brought to our ER.He was noted to be in DKA with Blood sugars greater than 600. He was seen by podiatry and surgery for BLE wounds and infection. He was treated in ICU for sepsis and DKA. He underwent incisional and excisional debridement of right footand right ankle by podiatry. Patient also found to have prostate abscess underwent transrectal ultrasound aspiration of abscess and transurethral resection of prostate and unroofing of abscess by urology Dr. Du. Endocrinology treated the DKA and blood sugars much improved. Patient's right foot was not salvageable and patient underwent right BKA by Dr. LEROY on 08/28. Patient blood cultures showed MRSA. Patient continued on antibiotics as per ID. MRI of the pelvis and foot completed. Patient required multiple PRBCs for anemia. Patient was found to have a possible small hematoma of the left calf onultrasound. He complains of pain and swelling of the left ankle. Patient hemodynamically stable and plans are to be transferred to stepdown unit. He is on heparin subcu for VTE. After surgery he is now being mobilized by PT and OT.He is wearing a maxine-tech orthotic for right knee/BKA protection. Prior to admission the patient was independent living in a single-story house with his spouse with a few steps up to front and back door. 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 is at bedside. Patient denies nausea, vomiting, fever, chills, chest pain, shortness of breath with dizziness. He is requiring IV Dilaudid for pain control. Mental status back to baseline. Pt is progressing slowly with therapy d/t weakness and pain, self care deficit, decreased endurance and balance, and decreased functional mobility. Pt requiring acute inpt rehab for multidisciplinary team of nursing, therapy, and physicians. Pt iswilling and able to partici- kathleen in 3 hr/day inpt rehab to d/c home safely. Pt's prior level of function was independent. Objective GeneralVS:Vital Signs: Date Time Temp Pulse Resp B/P B/P Pulse O2 O2 Flow FiO2 Mean Ox Delivery Rate 09/19 0655 98.4 90 17 138/68 91.6 98 Room air 09/19 0003 97.9 86 18 140/75 96.5 98 09/18 1935 97.7 83 16 135/67 89.9 98 Room air 09/18 1441 77 18 157/80 105.5 98 Room air PATIENT WEIGHT: Weight (lb): 167Weight (oz): 12.35Weight (kg): 76.100 Medications:Active Meds + DC'd Last 24 HrsMagnesium Sulfate (MAGNESIUM SULFATE 2GM/SWFI 50ML) 50 ML ONCE ONE IV (DC) Prednisone (predniSONE) 60 MG DAILY 0600 PO Daptomycin (CUBICIN 500MG) 500 MG Q24H IV Sodium Chloride (SODIUM CHLORIDE 0.9%) 50 MLFurosemide (LASIX 40 mg/4 mL INJECTION) 40 MG Q8HR IV (DC) Hydralazine HCl (APRESOLINE) 75 MG Q8HR PO Daptomycin (CUBICIN 500MG) 500 MG Q48H IV (DC) Sodium Chloride (SODIUM CHLORIDE 0.9%) 50 MLInsulin Human Lispro (HUMALOG) 10 UNIT AC SUBQ Insulin Glargine (Semglee) 20 UNIT BEDTIME SUBQ Meropenem (MEROPENEM) 500 MG Q8H IV Sterile Water (WATER FOR INJECTION) 10 MLCarvedilol (COREG) 25 MG C BK DIN PO Gabapentin (NEURONTIN) 100 MG Q8HR PO Oxycodone/Acetaminophen (PERCOCET 5/325MG TAB) 2 TAB Q4H PRN PRN PO Folic Acid (FOLIC ACID) 2 MG DAILY PO Multivitamins (TAB-A-MOHAN) 1 TAB DAILY PO Furosemide (LASIX 20MG INJ) 20 MG BLOOD-DOSE BETWEEN IV (CKD) Sodium Chloride (SODIUM CHLORIDE) 10 ML ASDIR IV Pantoprazole Sodium (PROTONIX) 40 MG Q12HR IV Polyethylene Glycol (MIRALAX) 17 GM DAILY PO Sennosides (Senna Lax 8.6 MG TABLET) 8.6 MG DAILY PO Sodium Chloride (SODIUM CHLORIDE) 10 ML ASDIR PRN IV Amitriptyline HCl (ELAVIL) 25 MG BEDTIME PO Zinc Oxide (ZINC OXIDE 30 GM OINTMENT) 1 APPLIC DAILY TOPICAL Sterile Water (WATER FOR IRRIGATION) DRESSING CHANGE ASDIR PRN IRR Insulin Human Lispro (HUMALOG) 0 AC HS SUBQ Dextrose/Water (DEXTROSE 10% IN WATER) 125 ML ASDIR PRN IV (CKD) Dextrose/Water (DEXTROSE 10% IN WATER) 250 ML ASDIR PRN IV (CKD) Glucagon (GLUCAGON) 1 MG ASDIR PRN IM Lidocaine (LIDODERM) 1 PATCH DAILY TOPICAL Acetaminophen (TYLENOL) 650 MG Q6H PRN PRN PO Bisacodyl (DULCOLAX) 10 MG DAILY PRN PRN RECTAL Docusate Sodium (COLACE) 100 MG Q12H PRN PRN PO Hydralazine HCl (APRESOLINE) 10 MG Q6H PRN PRN IV Ondansetron HCl (ZOFRAN) 4 MG Q6H PRN PRN IV Physical ExamGeneral appearance: alert, awake, no acute distressPsych: alert, normal affect, oriented x 3HEENT: anicteric, sclera clearNeck: supple, no JVDCardiovascular: S1/S2, no murmurRespiratory: aerating well, clear bilaterallyAbdomen: bowel sounds present, non-distended, soft, non-tenderSkin: no rash, R BKA HEALING. L ankle/foot wrapped with kerlixMusculoskeletal - general: Musculoskeletal - general: swelling (LLE, calve NT, homans neg), BUE 5/5, LLE4/5, R hip 3-Neuro/DIRECTOR OPERATING ROOM: alert, oriented X 3, CNII-XII intact ResultsFindings/Data:Laboratory Tests: 09/19 09/19 09/19 09/18 09/18 1133 0501 7983 4117 1933Chemistry Sodium (134 - 147 mEq/L) 139 Potassium [...] H Magnesium (1.80 - 2.40 mg/dL) 1.69 LHematology WBC (4.5 - 11.0 x10 3/uL) 13.3 [...] % (Auto) (14.0 - 32.0 %) 16.5 [place] % (Auto) (4.8 - 9.0 %) 8.4 Eos % (Auto) (0.3 - 3.7 %) 2.4 Baso % (Auto) (0.0 - 2.0 %) 0.2 Neut # (Auto) (2.0 - 7.6 x10 3/uL) 9.50 H Lymph # (Auto) (1.0 - 3.8 x10 3/uL) 2.19 [place] # (Auto) (0.1 - 0.8 x10 3/uL) 1.11 H Eos # (Auto) (0.0 - 0.2 x10 3/uL) 0.32 H Baso # (Auto) (0.0 - 0.2 x10 3/uL) 0.02 Abs Immat Gran (auto) (0.00 - 0.03 0.14 Hx10 3/uL) Add Manual Diff NO Immature Gran % (0.0 - 2.0 %) 1.1 Nucleated RBC % (0 - 0 %) 0.0 Nucleated RBCs # (Man) (0.0 - 0.1 0.00x10 3/uL) 09/18 1611 Chemistry POC Glucose (70 - 110 MG/DL) 118 H Diagnosis, Assessment PlanFree Text A P:Assessment:Severe Gas gangrene right foot and right ankle associated with osteomyelitis andnecrotizing fasciitisS/p surgical debridement and washout08/28: S/p right BKA-Dr. Greenberggnificant impairment in self-care, ADLs and functional mobilityImpaired mobility and gaitAcute postoperative pain right BKADiabetic polyneuropathyDKA, DM 2, poorly controlled, A1c greater than 14PADMRSA bacteremia/sepsis-treated on acuteAKISevere hyponatremia-resolvedHTNAcute on chronic anemia requiring multiple transfusions, possible GI bleedLeft calf hematomaEdema and clinical arthritis left ankleEarly decubitus to left heel/DTI dorsal left midfootProstatic abscess 08/26: S/p transrectal ultrasound aspiration of abscess and transurethral resection of prostate and unroofing of abscess09/12: Echo: EF 55-59%, grade 1 diastolic dysfunction09/02: JIMENA negative for vegetationMRSA OF NARES09/08:s/p EGD and colonoscopy. EGD showed mild gastritis. Colonoscopy showed rectal polyp that was resected by snare (tubular adenoma)-repeat colonoscopy in 5 years Plan:-PLOF: Independent with transfers and gait-Amputee rehab program-Continue PT and OT-15/12 rehabilitation nursing care.-Case management for safe discharge planning.-Decubitus prevention-Early decubitus to left heel/DTI dorsal left midfoot-zinc oxide to the foot, foam, offloading, podiatry managing-DVT prophylaxis-SCD left leg-Strict fall and safety precautions-Work on bed mobility, transfer training, ADLs, pre-gait and gait exercises-Increase endurance and strength-Monitor pain with therapies-OOB to chair-Monitor p.o. intake and nutrition, albumin 1.3, prealbumin less than 5, dietaryconsultation, protein supplements to promote ssmnazt-Glrdidpc-M5k 14, tight glycemia control- endocrine on board, insulin adjustments-Endocrinology, ID, podiatry, cardiology, IM consulted-Pain management adjusting pain medications-Anemia, patient required multiple units of PRBCs on acute, FOBT positive-IV Protonix-consult GI-serial H H-no evidence of gross bleeding-discussed with Dr. TrinidadEqoywrps-Icwcpesdogmh-iqusattpt wvmhzvun-ETY-lpqarw-CW Senokot and MiraLAX, DSP-MRSA OF NARES on Bactroban protocol-LLE edema-venous Doppler with complex heterogeneous hypoechoic fluid collectionin the left calf region measuring 8.4, 2.8, 2.5 cm suggestive of hematoma. On low-dose Lasix. Joan wrap LLE-LE edema could be related to hypoalbuminemia leading to third spacing-edema improving-Generalized edema-some shortness of breath and abdominal distention-cardiology gave a dose of IV Lasix-monitor urine output, daily weights-SOB resolved-09/05-venous Doppler of LLE-negative for DVT-Joan wrap dressing and elhffmofl-Teuthq-imvtgiikpu 8.3, 7.7, 8.2, 7.6, 8 transfused 2 units of PRBC on 09/05-09/08: s/p EGD and colonoscopy. EGD showed mild gastritis. Colonoscopy showed rectal polyp that was resected by snare. Anemia likely secondary to chronic kidney disease. Consult renal.-Pathology of polyp came back as tubular adenoma. recommend repeating colonoscopy in 5 years as per GI-Consider video capsule endoscopy as outpt if evidence of dropping H/H-Renal ultrasound negative-09/19/2022 blood pressure better, sodium 139, potassium 3.8, CO2 22, BUN 72 up from 66, creatinine 2.3 up from 2.2, will hold off diuretics, urine output reported 2 L, magnesium 1.69 we will give magnesium sulfate 2 g IV x1, continue prednisone-as per renal-MRSA bacteremia and prostatic abscess-WBC 13.3-monitor on Merrem and Daptomycintil 09/24 as per ID-Lasix as per nephrology-Completed Dwdr-Enzthh-0/21: Echo-EF 55-60%, indeterminate diastolic function parameters as per cardio-BP continues to be elevated, Hydralazine increased to 75 mg TID, cont Metoprolol to 25 mg BID-BS better but likely to increase with re-initiation of steroids x3 days startedby Nephrology for AIN-Endo adjusting insulin-Car transfer training 09/23-Creatinine continues to improve-discussed with patient and about renal issues are improving-Advance therapies as tolerated-discussed treatment plan with patient and -Right PPE-fdmcvts-qongjxhn resolved, dressings changed today-no bleeding after heparin discontinued, SCD to left leg-Patient continue to make progress. Emphasizing transfers with [...] RW DURING STAND PIVOT TRANSFERS TO [place]. PM RPlease see team note.Plan and goals discussed with the patient. I agree with the teams findingELOS- [09/24] on IV antibiotics until C-Home with -Home healthDME-bedside commode, sliding board, wheelchair, drop arm bedside commode Total time 33 minutes greater than 50% of the time spent examining patient, discussing with patient about BKA incision improving, no bleeding, improvement in renal function, on steroids, medical issues, anemia, amputee rehab, dischargeplans, rehab plan of care, goals, therapies, progress, labs, medications. EMR and MAR is reviewed. All questions answeredConsultants: cardiology, endocrinology, hospitalist, infectious disease, podiatryRehab attestation:Face to face exam completed. Treatment plan discussed with patient. Meets continued stay criteria. Agree with interdisciplinary treatment plan. at 1424 RPT #:[id number] OF REPORTPRProgress [id number]:14:00G.[id number] able for patient [id number]:24:21 [facility] 2022-09-19 13:22:00 [id number] MWeemF+i6yKasRa+eTXnKbqksaKza bOBmwFbQW0AQpsMAhh9aYlv3wao0734-78-80L77:22:00 [facility] HospitalHospitalist Progress NoteREPORT#:[id number] REPORT STATUS: SignedDATE:09/19/22 TIME: 1322 PATIENT: KARMA ROWLAND UNIT #: [id number]#: [id number] [address] [birth year] AGE: 56 SEX: M ATTEND: Mj Vences [facility] AUTHOR: Meera Chavira DO * ALL edits or amendments must be made on the electronic/computer document * SubjectiveChief complaint:Edema LLE improved but still present Objective GeneralVS/I O:Vital Signs: Date Time Temp Pulse Resp B/P [...] Output, Urine 1999 PATIENT WEIGHT: Weight (lb): 167Weight (oz): 12.35Weight (kg): 76.100 Medications:Active Meds + DC'd Last 24 HrsMagnesium Sulfate (MAGNESIUM SULFATE 2GM/SWFI 50ML) 50 ML ONCE ONE IV (DC) Prednisone (predniSONE) 60 MG DAILY 0600 PO Daptomycin (CUBICIN 500MG) 500 MG Q24H IV Sodium Chloride (SODIUM CHLORIDE 0.9%) 50 MLFurosemide (LASIX 40 mg/4 mL INJECTION) 40 MG Q8HR IV (DC) Hydralazine HCl (APRESOLINE) 75 MG Q8HR PO Daptomycin (CUBICIN 500MG) 500 MG Q48H IV (DC) Sodium Chloride (SODIUM CHLORIDE 0.9%) 50 MLInsulin Human Lispro (HUMALOG) 10 UNIT AC SUBQ Heparin Sodium (HEPARIN 5000 UNITS/ML) 5,000 UNIT Q12HR SUBQ (DC) Insulin Glargine (Semglee) 20 UNIT BEDTIME SUBQ Meropenem (MEROPENEM) 500 MG Q8H IV Sterile Water (WATER FOR INJECTION) 10 MLCarvedilol (COREG) 25 MG C BK DIN PO Gabapentin (NEURONTIN) 100 MG Q8HR PO Oxycodone/Acetaminophen (PERCOCET 5/325MG TAB) 2 TAB Q4H PRN PRN PO Folic Acid (FOLIC ACID) 2 MG DAILY PO Multivitamins (TAB-A-MOHAN) 1 TAB DAILY PO Furosemide (LASIX 20MG INJ) 20 MG BLOOD-DOSE BETWEEN IV (CKD) Sodium Chloride (SODIUM CHLORIDE) 10 ML ASDIR IV Pantoprazole Sodium (PROTONIX) 40 MG Q12HR IV Polyethylene Glycol (MIRALAX) 17 GM DAILY PO Sennosides (Senna Lax 8.6 MG TABLET) 8.6 MG DAILY PO Sodium Chloride (SODIUM CHLORIDE) 10 ML ASDIR PRN IV Amitriptyline HCl (ELAVIL) 25 MG BEDTIME PO Zinc Oxide (ZINC OXIDE 30 GM OINTMENT) 1 APPLIC DAILY TOPICAL Sterile Water (WATER FOR IRRIGATION) DRESSING CHANGE ASDIR PRN IRR Insulin Human Lispro (HUMALOG) 0 AC HS SUBQ Dextrose/Water (DEXTROSE 10% IN WATER) 125 ML ASDIR PRN IV (CKD) Dextrose/Water (DEXTROSE 10% IN WATER) 250 ML ASDIR PRN IV (CKD) Glucagon (GLUCAGON) 1 MG ASDIR PRN IM Lidocaine (LIDODERM) 1 PATCH DAILY TOPICAL Acetaminophen (TYLENOL) 650 MG Q6H PRN PRN PO Bisacodyl (DULCOLAX) 10 MG DAILY PRN PRN RECTAL Docusate Sodium (COLACE) 100 MG Q12H PRN PRN PO Hydralazine HCl (APRESOLINE) 10 MG Q6H PRN PRN IV Ondansetron HCl (ZOFRAN) 4 MG Q6H PRN PRN IV Physical ExamGeneral appearance: alert, awake, oriented, no acute distress, pleasant, conversational, mental status normal, no respiratory distressHead/Eyes: atraumatic, normocephalicENT: moist mucosal membranesNeck: no JVDCardiovascular: normal heart sounds, regular rate rhythmRespiratory: aerating well, clear to auscultationAbdomen: non-tender, normal bowel soundsGenitourinary: no bladder distentionExtremities: edema (1+ pitting edema to thigh), moves all, normal capillary refillMusculoskeletal: normal inspectionNeuro/DIRECTOR OPERATING ROOM: alert, oriented X 3, 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 Considered stroke alert: noSkin: dry, intactPsychiatry: normal affect, normal judgment/insight ResultsFindings/Data:Laboratory Tests 09/19 09/19 09/19 09/18 09/18 1133 [...] % (Auto) (14.0 - 32.0 %) 16.5 [place] % (Auto) (4.8 - 9.0 %) 8.4 Eos % (Auto) (0.3 - 3.7 %) 2.4 Baso % (Auto) (0.0 - 2.0 %) 0.2 Neut # (Auto) (2.0 - 7.6 x10 3/uL) 9.50 H Lymph # (Auto) (1.0 - 3.8 x10 3/uL) 2.19 [place] # (Auto) (0.1 - 0.8 x10 3/uL) 1.11 H Eos # (Auto) (0.0 - 0.2 x10 3/uL) 0.32 H Baso # (Auto) (0.0 - 0.2 x10 3/uL) 0.02 Abs Immat Gran (auto) (0.00 - 0.03 x10 3/uL) 0.14 H Add Manual Diff NO Immature Gran % (0.0 - 2.0 %) 1.1 Nucleated RBC % (0 - 0 %) 0.0 Nucleated RBCs # (Man) (0.0 - 0.1 x10 3/uL) 0.00 Diagnosis, Assessment PlanConsultants: cardiology, endocrinology, hospitalist, infectious disease, podiatry Free Text DxA P NotesFree text DxA P notes:Gangrene of right foot s/p Below- knee amputation Prostate abscessMRSA bacteremiaHx of Diabetes, Diabetic neuropathyHTNAKI PLANS: Continue with PT/OT per primary Wound care and Abx as per IDHepain PPXIV ironBP continues to be elevated, Hydralazine increased to 75 mg TID, cont Metoprololto 25 mg BIDBS better but likely to increase with re-initiation of steroids x3 days started by Nephrology for AIN - Endo adjusting insulinpain controlCr at 2.2, Nephrology following, re-started Prednisone 60 mg for 2 daysEdema about the same, Lasix as per renalHgb stabilized. continue to monitor at 1323 RPT #:[id number] OF REPORTPRProgress [id number]:22:00G.[id number] able for patient nisxHEHVRHURFHRCEL2204-05-56U03:24:11 [facility] 2022-09-19 10:38:00 [id number]/ [id number]/2+yLVasEHPBiu n8KEZank4102YTr2uGqssd7yvdK2786-41-43K79:38:00 [facility] ([facility])Cardiology Progress NoteREPORT#:[id number] REPORT STATUS: SignedDATE:09/19/22 TIME: 1038 PATIENT: KARMA ROWLAND UNIT #: [id number]#: [id number] [address] [birth year] AGE: 56 SEX: M ATTEND: Mj Vences MDADM AUTHOR: Rohit Benitez RESEARCH MANUFACTURING OPERATOR * ALL edits or amendments must be made on the electronic/computer document * Rohit Benitez 09/19/22 1038:SubjectiveChief complaint:weakness Free Text Subj NotesFree Text Subj Notes:Patient seen and evaluated. Chart reviewed. No new symptoms, feeling well. Denies chest pain, or shortness of breath. Objective GeneralVS/I O:24 hour I O ending at 0700: 09/19 [...] 98 Room air PATIENT WEIGHT: Weight (lb): 167Weight (oz): 12.35Weight (kg): 76.100 Medications:Active Meds + DC'd Last 24 HrsMagnesium Sulfate (MAGNESIUM SULFATE 2GM/SWFI 50ML) 50 ML ONCE ONE IV (DC) Prednisone (predniSONE) 60 MG DAILY 0600 PO Daptomycin (CUBICIN 500MG) 500 MG Q24H IV Sodium Chloride (SODIUM CHLORIDE 0.9%) 50 MLFurosemide (LASIX 40 mg/4 mL INJECTION) 40 MG Q8HR IV (DC) Hydralazine HCl (APRESOLINE) 75 MG Q8HR PO Daptomycin (CUBICIN 500MG) 500 MG Q48H IV (DC) Sodium Chloride (SODIUM CHLORIDE 0.9%) 50 MLInsulin Human Lispro (HUMALOG) 10 UNIT AC SUBQ Heparin Sodium (HEPARIN 5000 UNITS/ML) 5,000 UNIT Q12HR SUBQ (DC) Insulin Glargine (Semglee) 20 UNIT BEDTIME SUBQ Meropenem (MEROPENEM) 500 MG Q8H IV Sterile Water (WATER FOR INJECTION) 10 MLCarvedilol (COREG) 25 MG C BK DIN PO Gabapentin (NEURONTIN) 100 MG Q8HR PO Oxycodone/Acetaminophen (PERCOCET 5/325MG TAB) 2 TAB Q4H PRN PRN PO Folic Acid (FOLIC ACID) 2 MG DAILY PO Multivitamins (TAB-A-MOHAN) 1 TAB DAILY PO Furosemide (LASIX 20MG INJ) 20 MG BLOOD-DOSE BETWEEN IV (CKD) Sodium Chloride (SODIUM CHLORIDE) 10 ML ASDIR IV Pantoprazole Sodium (PROTONIX) 40 MG Q12HR IV Polyethylene Glycol (MIRALAX) 17 GM DAILY PO Sennosides (Senna Lax 8.6 MG TABLET) 8.6 MG DAILY PO Sodium Chloride (SODIUM CHLORIDE) 10 ML ASDIR PRN IV Amitriptyline HCl (ELAVIL) 25 MG BEDTIME PO Zinc Oxide (ZINC OXIDE 30 GM OINTMENT) 1 APPLIC DAILY TOPICAL Sterile Water (WATER FOR IRRIGATION) DRESSING CHANGE ASDIR PRN IRR Insulin Human Lispro (HUMALOG) 0 AC HS SUBQ Dextrose/Water (DEXTROSE 10% IN WATER) 125 ML ASDIR PRN IV (CKD) Dextrose/Water (DEXTROSE 10% IN WATER) 250 ML ASDIR PRN IV (CKD) Glucagon (GLUCAGON) 1 MG ASDIR PRN IM Lidocaine (LIDODERM) 1 PATCH DAILY TOPICAL Acetaminophen (TYLENOL) 650 MG Q6H PRN PRN PO Bisacodyl (DULCOLAX) 10 MG DAILY PRN PRN RECTAL Docusate Sodium (COLACE) 100 MG Q12H PRN PRN PO Hydralazine HCl (APRESOLINE) 10 MG Q6H PRN PRN IV Ondansetron HCl (ZOFRAN) 4 MG Q6H PRN PRN IV Physical ExamGeneral appearance: alert, awake, orientedNeck: no bruit/NL carotids, no JVDCardiovascular: CV assessment: regular rate and rhythm, no ectopy, no gallopRespiratory: clear to auscultation, no distressAbdomen: soft, non-tenderLower extremity: LE assessment: edema, normal temperatureNeuro/DIRECTOR OPERATING ROOM: alert, oriented X 3 Considered stroke alert: noWound/incision: Location:right bkaPsychiatry: normal affect, normal judgment/insight, normal mood ResultsFindings/Data:Laboratory Tests 09/19 09/19 09/18 09/18 09/18 0501 [...] % (Auto) (14.0 - 32.0 %) 16.5 Lenoir % (Auto) (4.8 - 9.0 %) 8.4 Eos % (Auto) (0.3 - 3.7 %) 2.4 Baso % (Auto) (0.0 - 2.0 %) 0.2 Neut # (Auto) (2.0 - 7.6 x10 3/uL) 9.50 H Lymph # (Auto) (1.0 - 3.8 x10 3/uL) 2.19 Lenoir # (Auto) (0.1 - 0.8 x10 3/uL) 1.11 H Eos # (Auto) (0.0 - 0.2 x10 3/uL) 0.32 H Baso # (Auto) (0.0 - 0.2 x10 3/uL) 0.02 Abs Immat Gran (auto) (0.00 - 0.03 x10 3/uL) 0.14 H Add Manual Diff NO Immature Gran % (0.0 - 2.0 %) 1.1 Nucleated RBC % (0 - 0 %) 0.0 Nucleated RBCs # (Man) (0.0 - 0.1 x10 3/uL) 0.00 Laboratory Tests 09/19 0501 Chemistry Magnesium (1.80 - 2.40 mg/dL) 1.69 L Diagnosis, Assessment PlanConsultants: cardiology, endocrinology, hospitalist, infectious disease, podiatry Free Text DxA P NotesFree Text DxA P Notes:Impression: 1. Debility2. Infected right foot status post BKA3. Bacteremia4. Diabetes5. Hypertension 6. Anemia7. Acute Diastolic CHF 07/2022: Echocardiogram with normal LVEF, grade 1 diastolic dysfunction, mildly dilated LA, and no significant valvular abnormalities Recommendation: Patient initially presented with DKA and sepsis. Diagnosed with right foot infection, underwent I D, now status post BKA. Patient had persistent bacteremia with MRSA, underwent JIMENA with negative findings of endocarditis. Patient now transferred to rehab for physical therapy. Known cardiac history ofhypertension and hyperlipidemia. Vital signs stable. Echocardiogram with normal LVEF, grade 1 diastolic dysfunction, mildly dilated LA, and no significant valvular abnormalities. Continue to monitor blood pressure trend. Continue wound care and IV antibiotic therapy. Continue PT/OT. Supportive care. 09/04: Patient complaining of shortness of breath, abdominal distention and lowerextremity edema. Renal function and electrolytes stable. Will give one-time dose of IV Lasix 40 mg. Blood pressure stable. Pending abdominal x-ray. Monitor intake and output. Check BMP in the morning. Supportive care. Plan ofcare discussed with patient, RN and Dr. Parham. 09/05: Patient responded well to IV Lasix, good urine output and improvement in shortness of breath. Chest x-ray ordered. Currently on Lasix 20 mg p.o. daily. Continue monitor renal function and electrolytes. Pending lower extremity Doppler for lower extremity edema. Continue PT/OT. Supportive care. Plan of care discussed with patient, RN and Dr. Parham. 09/08: Blood pressure has been elevated, started on Coreg 3.125 mg twice daily. Continue monitor blood pressure trend and adjust medication as needed. Still having left lower extremity edema, venous Doppler negative for DVT. continue gentle diuresis with Lasix 20 mg p.o. daily. Recommend Joan wrap. Patient remains anemic, plan for EGD/colonoscopy today. Supportive care. Plan of care discussed with patient, family, RN and Dr. Parham. 09/09: Patient doing well status post EGD/colonoscopy, negative findings for GI bleed. Blood pressure improving, increased on Coreg to 12.5 mg twice daily. Elevated creatinine noted, nephrology following. No new cardiac complaint. Continue wound care. Continue PT/OT. Supportive care. Plan of care discussed with patient, RN and Dr. Parham. 09/10: Blood pressure remained stable on current regimen of Coreg. Patient continue to have left lower extremity edema. Currently on Lasix 20 mg daily. Creatinine 1.9 today, continue to monitor. Patient's albumin level was 1.3, it is possible that patient's lower extremity edema could be related to hypoalbuminemia leading to third spacing. Continue PT/OT. Supportive care. Plan of care discussed with patient, RN and Dr. Parham. 09/11: Patient doing well from cardiac standpoint. Blood pressure well controlled. Improvement in lower extremity edema with elevating leg while in bed. Creatinine 2.0 today. Denies shortness of breath. Will hold diuretic for now and monitor renal function. Supportive care. Plan of care discussed with patient, RN and Dr. Parham. 09/12: Creatinine remains elevated at 2.4 today, antibiotic regimen also being adjusted. Patient still with lower extremity edema and rales on physical examination. Will check chest x-ray and limited echocardiogram for further evaluation. Check BNP. Continue hold diuretic for now. Supportive care. Planof care discussed with patient, RN and Dr. Parham. 09/15: Repeat echocardiogram showed LVEF of 55 to 60%, no regional wall motion abnormalities, left ventricular diastolic function parameters are indeterminate,mildly dilated LA, and no pericardial effusion. BNP elevated 297. Continue to hold diuretic due to Elevated creatinine, nephrology following and may consider renal biopsy. Continue to monitor fluid volume status. Overall improvement in lower extremity with Joan wrap. Continue physical therapy. Supportive care. Plan of care discussed with patient, RN and Dr. Parham. 09/16: Blood pressure slightly elevated, started on hydralazine 25 mg every 8 hours. Continue carvedilol monitor blood pressure trend. Cr. 2.7 today, continue monitor. Tolerating physical therapy. Euvolemic by physical examination. Supportive care. Plan of care discussed with patient, RN and Dr. Parham. 09/17: Blood pressure remains elevated, likely related to steroid therapy. Hydralazine increased to 50 mg 3 times daily. Nephrology managing diuretic therapy. Continue monitor renal function and electrolytes. Improvement in lower extremity swelling. Patient denies chest pain or shortness of breath. Tolerating PT/OT. Supportive care. Plan of care discussed with patient, RN andDr. Parham. 09/18: Blood pressure remains elevated due to steroid therapy. Continue monitor blood pressure trend, hydralazine increased to 75 mg 3 times daily. Responding to diuretic regimen with Lasix, good urine output. Creatinine improving, 2.2 today. Continue to monitor fluid volume status. Continue physical therapy. Supportive care. Plan of care discussed with patient, RN and Dr. Parham. 09/19: Blood pressure improving, continue hydralazine and carvedilol. Overall improvement in fluid volume status. No new cardiac complaint. Continue steroidtaper per nephrology. Progressing in therapy. Discharge planning. Supportive care. Plan of care discussed with patient, RN and Dr. Parham. Napoleon Parham 09/20/22 1653:Diagnosis, Assessment PlanAdditional comments:Patient was seen and examined at bedside, agree with above assessment and plan as documented by nurse practitioner. Will follow up at 1537 at 1654 RPT #:[id number] OF REPORTPRProgress [id number]:38:00G.[id number] able for patient wjylDLEUIYGOQAHAAG0354-00-80W53:37:37 [facility] 2022-09-19 10:32:00 [id number] JZlRRZRMb4/Dvd2aVUwulpCEIeHCP LcAoY6YuoznO4N9N+wZ+ZD4QUs58130-69-27E96:32:00 [facility] ([facility])Infectious Dis. Progress NoteREPORT#:[id number] REPORT STATUS: SignedDATE:09/19/22 TIME: 1032 PATIENT: KARMA ROWLAND UNIT #: [id number]#: [id number] [address] [birth year] AGE: 56 SEX: M ATTEND: Mj Vences MDADM AUTHOR: Linda Anderson MD * ALL edits or amendments must be made on the electronic/computer document * SubjectiveHPI:PT is a 56yr old male with history of diabetes mellitus type 2, hypertension whowas admitted with altered mental status and right-sided foot infection. According to him, he noticed a blister on his right foot around 3 days prior to presentation. His foot got progressively more swollen and erythema extended proximally to his lateral foot and ankle. CT abdomen and pelvis with contrast is concerning for possible prostate abscess. CT of lower extremity without contrast shows extensive soft tissue edema with mottled gas in the subcutaneous and intramuscular compartments of the foot, compatible with gas-forming infection. Patient's blood cultures have come back positive for MRSA in 2 out of 2 sets. PT has had persistent (+)Ve cx for MRSA 08/18- 08/22. He underwent a debridement of his foot on 08/19 and cx grew MRSA. PT was started on Vancomycin and clindamycin on 08/18. His MRI showed a prostate abscess. 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 Pt underwent a transrectal aspiration and unroofing of prostate abscess 08/26 and cx grew Citrobacter, Enterococcus, MRSA. He also hada BKA of right leg 08/28. JIMENA done 09/02. Pt was transferred to Rehab on 09/02. Patient reports:No: cough, diarrhea, fever, headache, nausea, shortness of breath, vomiting. Portions of this section were scribed by Jill Quintero on 09/19/22 at 1032 Objective GeneralVS/I O:Vital SignsDate Temp Pulse Resp B/P B/P Mean Pulse Ox WoW749/27-09/19 97.7-98.4 77-90 16-18 135-157/67-80 89.9-105.5 98 Last [...] Output, Urine 1999 PATIENT WEIGHT: Weight (lb): 167Weight (oz): 12.35Weight (kg): 76.100 Medications:Active Meds + DC'd Last 24 HrsInsulin Glargine (Semglee) 17 UNIT BEDTIME SUBQ Magnesium Sulfate (MAGNESIUM SULFATE 2GM/SWFI 50ML) 50 ML ONCE ONE IV (DC) Prednisone (predniSONE) 60 MG DAILY 0600 PO Daptomycin (CUBICIN 500MG) 500 MG Q24H IV Sodium Chloride (SODIUM CHLORIDE 0.9%) 50 MLFurosemide (LASIX 40 mg/4 mL INJECTION) 40 MG Q8HR IV (DC) Hydralazine HCl (APRESOLINE) 75 MG Q8HR PO Insulin Human Lispro (HUMALOG) 10 UNIT AC SUBQ Insulin Glargine (Semglee) 20 UNIT BEDTIME SUBQ (DC) Meropenem (MEROPENEM) 500 MG Q8H IV Sterile Water (WATER FOR INJECTION) 10 MLCarvedilol (COREG) 25 MG C BK DIN PO Gabapentin (NEURONTIN) 100 MG Q8HR PO Oxycodone/Acetaminophen (PERCOCET 5/325MG TAB) 2 TAB Q4H PRN PRN PO Folic Acid (FOLIC ACID) 2 MG DAILY PO Multivitamins (TAB-A-MOHAN) 1 TAB DAILY PO Furosemide (LASIX 20MG INJ) 20 MG BLOOD-DOSE BETWEEN IV (CKD) Sodium Chloride (SODIUM CHLORIDE) 10 ML ASDIR IV Pantoprazole Sodium (PROTONIX) 40 MG Q12HR IV Polyethylene Glycol (MIRALAX) 17 GM DAILY PO Sennosides (Senna Lax 8.6 MG TABLET) 8.6 MG DAILY PO Sodium Chloride (SODIUM CHLORIDE) 10 ML ASDIR PRN IV Amitriptyline HCl (ELAVIL) 25 MG BEDTIME PO Zinc Oxide (ZINC OXIDE 30 GM OINTMENT) 1 APPLIC DAILY TOPICAL Sterile Water (WATER FOR IRRIGATION) DRESSING CHANGE ASDIR PRN IRR Insulin Human Lispro (HUMALOG) 0 AC HS SUBQ Dextrose/Water (DEXTROSE 10% IN WATER) 125 ML ASDIR PRN IV (CKD) Dextrose/Water (DEXTROSE 10% IN WATER) 250 ML ASDIR PRN IV (CKD) Glucagon (GLUCAGON) 1 MG ASDIR PRN IM Lidocaine (LIDODERM) 1 PATCH DAILY TOPICAL Acetaminophen (TYLENOL) 650 MG Q6H PRN PRN PO Bisacodyl (DULCOLAX) 10 MG DAILY PRN PRN RECTAL Docusate Sodium (COLACE) 100 MG Q12H PRN PRN PO Hydralazine HCl (APRESOLINE) 10 MG Q6H PRN PRN IV Ondansetron HCl (ZOFRAN) 4 MG Q6H PRN PRN IV Antibiotic start date:Antibiotic: vancomycinStart Date:09/03-09/12Antibiotic: daptomycin Start Date:08/28-09/03, restarted on 09/12 Antibiotic: cefepime Start Date:09/01-09/12 Antibiotic: merremStart Date:08/27-09/01, 09/12- Physical ExamGeneral appearance: alert, awake, orientedHead/Eyes: atraumatic, clear cornea, EOMI, normal conjunctiva/sclera, normal eyelids/periorb, normocephalic, PERRLENT: moist mucosal membranes, normal dentitionNeck: full range of motionCardiovascular: normal heart sounds, regular rate rhythmRespiratory: clear to auscultation, aerating wellAbdomen: non-tender, normal bowel sounds, softExtremities: edema (in left leg and thigh improved), moves all, right BKA Left foot wound +dressing in placeNeuro/DIRECTOR OPERATING ROOM: alert, oriented X 3 Considered stroke alert: noSkin: dry, intact ResultsFindings/Data:Laboratory Tests 09/19 09/19 09/18 09/18 09/18 0501 [...] % (Auto) (14.0 - 32.0 %) 16.5 Lenoir % (Auto) (4.8 - 9.0 %) 8.4 Eos % (Auto) (0.3 - 3.7 %) 2.4 Baso % (Auto) (0.0 - 2.0 %) 0.2 Neut # (Auto) (2.0 - 7.6 x10 3/uL) 9.50 H Lymph # (Auto) (1.0 - 3.8 x10 3/uL) 2.19 Lenoir # (Auto) (0.1 - 0.8 x10 3/uL) 1.11 H Eos # (Auto) (0.0 - 0.2 x10 3/uL) 0.32 H Baso # (Auto) (0.0 - 0.2 x10 3/uL) 0.02 Abs Immat Gran (auto) (0.00 - 0.03 x10 3/uL) 0.14 H Add Manual Diff NO Immature Gran % (0.0 - 2.0 %) 1.1 Nucleated RBC % (0 - 0 %) 0.0 Nucleated RBCs # (Man) (0.0 - 0.1 x10 3/uL) 0.00 Laboratory Tests: 09/19 09/19 09/18 09/18 0501 [...] % (Auto) (14.0 - 32.0 %) 16.5 Lenoir % (Auto) (4.8 - 9.0 %) 8.4 Eos % (Auto) (0.3 - 3.7 %) 2.4 Baso % (Auto) (0.0 - 2.0 %) 0.2 Neut # (Auto) (2.0 - 7.6 x10 3/uL) 9.50 H Lymph # (Auto) (1.0 - 3.8 x10 3/uL) 2.19 Lenoir # (Auto) (0.1 - 0.8 x10 3/uL) 1.11 H Eos # (Auto) (0.0 - 0.2 x10 3/uL) 0.32 H Baso # (Auto) (0.0 - 0.2 x10 3/uL) 0.02 Abs Immat Gran (auto) (0.00 - 0.03 x10 3/uL) 0.14 H Add Manual Diff NO Immature Gran % (0.0 - 2.0 %) 1.1 Nucleated RBC % (0 - 0 %) 0.0 Nucleated RBCs # (Man) (0.0 - 0.1 x10 3/uL) 0.00 09/18 09/18 09/18 09/18 1611 1102 0906 [...] % (Auto) (14.0 - 32.0 %) 17.4 Lenoir % (Auto) (4.8 - 9.0 %) 6.9 Eos % (Auto) (0.3 - 3.7 %) 0.1 L Baso % (Auto) (0.0 - 2.0 %) 0.1 Neut # (Auto) (2.0 - 7.6 x10 3/uL) 7.91 H Lymph # (Auto) (1.0 - 3.8 x10 3/uL) 1.85 Lenoir # (Auto) (0.1 - 0.8 x10 3/uL) 0.73 Eos # (Auto) (0.0 - 0.2 x10 3/uL) 0.01 Baso # (Auto) (0.0 - 0.2 x10 3/uL) 0.01 Abs Immat Gran (auto) (0.00 - 0.03 x10 3/uL) 0.10 H Add Manual Diff NO Immature Gran % (0.0 - 2.0 %) 0.9 Nucleated RBC % (0 - 0 %) 0.0 Nucleated RBCs # (Man) (0.0 - 0.1 x10 3/uL) 0.00 Medication(s) Ordered:Anti-Infective Agents Sig/Jan Start time Last Medication Dose [...] Sodium 5,000 UNIT Q12HR 09/15 2100 DC 09/18 SUBQ 10/15 205 0934 Cardiovascular Drugs Sig/Jan Start time Last [...] TAB Q4H PRN PRN 09/10 0715 AC 09/19 Acetaminophen PO 10/10 1300 0911 Amitriptyline HCl 25 MG BEDTIME 09/04 2100 AC 09/18 PO 10/04 2059 2145 Acetaminophen 650 [...] 10 ML ASDIR PRN 09/05 0630 AC 09/15 IV 10/05 0629 0912 Sterile Water [...] Sodium 40 MG Q12HR 09/05 0900 AC 09/19 IV 10/05 0859 0911 Polyethylene Glycol 17 GM DAILY 09/05 09 AC 09/17 PO 10/05 0859 0901 Sennosides 8.6 MG DAILY 04/14 0900 AC 09/19 PO 10/05 0859 0912 Bisacodyl [...] Time Status Admin Prednisone 60 MG DAILY 09/19 0600 AC 09/19 PO 09/21 0601 0455 Insulin Human Lispro 10 UNIT AC 09/16 0730 AC 09/19 SUBQ 10/16 0729 0911 Insulin Glargine 20 UNIT BEDTIME 09/15 2100 AC 09/18 SUBQ 10/15 205 2147 Insulin Human Lispro 0 AC 09/03 1630 AC 09/17 SUBQ 10/03 1629 1233 Glucagon 1 MG [...] Oxide 1 APPLIC DAILY 09/04 09 AC 09/19 TOPICAL 10/04 0859 0915 Vitamins Sig/Jan Start time Last Medication Dose Route Stop Time Status Admin Folic Acid 2 MG DAILY 09/09 09 AC 09/19 PO 10/09 0859 0912 Multivitamins 1 TAB DAILY 09/09 09 AC 09/19 PO 10/09 0859 0912 Dose Instructions:(1)Sterile Water: DRESSING CHANGE Portions of this section were scribed by Jill Quintero on 09/19/22 at 1032 Treatment Prophylaxis Treatment ProphylaxisLines: PICC Portions of this section were scribed by Jill Quintero on 09/19/22 at 1032 Diagnosis, Assessment PlanFree Text A P:*MRSA bacteremia-Initial blood cultures from 08/18/2022 positive for MRSA in 2 out of 2 sets.-Repeat blood cultures 08/21/2022 are already positive for MRSA in 2 out of 2 sets, suggesting persistent high-grade bacteremia.-TTE 08/18/2022 negative for any obvious vegetations.-08/28 neg-JIMENA 09/02 neg*Prostatic abscess-s/p transrectal aspiration and unroofing on 08/26-cx MRSA, citrobacter (r-cefazolin) Enterococcus raffinosus (S-amp,pcn, vancomycin), bacteriodes*ERIKA-nephrology following; worsening; adjust abx (changed vancomycin and cefepime tomerrem and daptomycin )*Hyponatremia*Diabetic neuropathy*Diabetes mellitus type 2*Hypertension*anemia 09/19no changes overnighton Merrem and Dapotomycin til reat improvingswelling improvedConsultants: cardiology, endocrinology, hospitalist, infectious disease, podiatry Portions of this section were scribed by Jill Quintero on 09/19/22 at 1554 at 2342 RPT #:[id number] OF REPORTPRProgress lken3486-17-17F23:32:00G.[id number] able for patient hvmsPAWFZGGDYWUGHP2877-91-96D60:42:32 [facility] 2022-09-19 09:11:00 [id number] CtELBKkNOZVjMZmnJNWcUIC4OyCt0 Dgvzl53VUE5IalaXAt1ZB8W6RH08996-45-09Z85:11:00 [facility])Gastroenterology Progress NoteREPORT#:[id number] REPORT STATUS: SignedDATE:09/19/22 TIME: 910 PATIENT: KARMA ROWLAND UNIT #: [id number]#: [id number] [address] [birth year] AGE: 56 SEX: M ATTEND: Mj Vences [facility] AUTHOR: Kassie Avitia MD * ALL edits or amendments must be made on the electronic/computer document * SubjectiveHPI:Patient is a 56-year-old male with history of diabetes mellitus type 2 and hypertension who was initially admitted for altered mental status and right-sided foot infection. 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 The patient is anemic with current Hgb 7.1. He has received a total of 3 units pRBCs during this hospitalization. KUB on 09/04 was negative for acute GI process. The patient denies overt GIB, dark tarry stools, nausea, abdominal pain, or vomiting. He has never had EGD orcolonoscopy. 09/06: No complaints today. Hemoglobin stable. No overt GI bleed. Plan for colonoscopy and endoscopy on Thursday 09/07: No complaints today. No overt GI bleed. Planning for colonoscopy and endoscopy tomorrow 09/08: EGD mild gastritis. colonoscopy rectal polyp s/p snare. No other abnormalities 09/09: doing well. Seen at the gym. No bleeding. 09/10: Doing well. No bleeding. tolerating diet. Movig bowels 09/11: doing well. States his leg swelling is better. Tolerating diet. having normal BM 09/12: dooing well. doing work-out at the gym. Tolerating diet. Normal BMs. Stable H/H4-Sitting up in wheelchair, family at bedside. Denies n/v/abd pain/GIB 09/15: Doing well. H/H stable. No melena or BRBPR. No nausea or vomiting. Appetite is well 09/16: doing well. no complaints. eating well 09/17: stable H/H. No complaints. 09/18/22: H/H fluctuating but overall stable 09/19: H/H stable up to 8 today. No complaints. Objective Physical ExamHEENT: atraumatic, normocephalicNeck: full range of motion, non-tenderRespiratory: symmetric expansion, no distressAbdomen: non-tender, normal bowel sounds, soft, no distention, no guardingExtremities: right BKA Considered stroke alert: noSkin: dry Diagnosis, Assessment PlanFree Text A P:1. Positive FOBT-and anemia: The patient denies overt GIB, dark tarry stools, nausea, abdominal pain, or vomiting. He is not on anticoagulation therapy.-Continue PPI. The patient has never had EGD or colonoscopy prior to this admissions/p EGD and colonoscopy. EGD showed mild gastritis. Colonoscopy showed rectal polyp that was resected by snare. no evidence of bleeding. Pathology of polyp came back as tubular adenoma. recommend repeating colonoscopy in 5 years Anemia likely secondary to chronic kidney disease and mild oozing from his stump.Can consider video capsule endoscopy as outpt if evidence of dropping H/HH/H remains stable Consider reducing frequency of H/H checkWill follow along Consultants: cardiology, endocrinology, hospitalist, infectious disease, podiatry at 0912 RPT #:[id number] OF REPORTPRProgress pfon1175-27-93A19:11:00G.[id number] able for patient tzfqDJATITEXQCNVNZ5413-34-35L30:13:00 [facility] 2022-09-19 07:38:00 [id number] p7+EMEtoCeWPZi5qfeNeY/WWbo0OM t6/lSPZ2Vfial8K1ebQ4edHVgM+1252-85-13D18:38:00 [facility] Progress NoteREPORT#:[id number] REPORT STATUS: SignedDATE:09/19/22 TIME: 0738 PATIENT: KARMA ROWLAND UNIT #: [id number]#: [id number] [address] [birth year] AGE: 56 SEX: M ATTEND: Mj Vences AUTHOR: Barrera Ramírez MD * ALL edits or amendments must be made on the electronic/computer document * SubjectiveChief complaint:Infected footHPI:Patient seen and evaluated on 09/09/2022, note started, records reviewed and orders placed on 09/08/2022, 56-year-old male with history of diabetes mellitus type 2, hypertension and peripheral vascular disease who was initially admitted to acute care with altered mental status and right foot infection/gangrene, 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 Patient had persistent anemia requiring blood transfusion. His fecal occult blood was positive and his creatinine was 1.2 and increased to 1.4 today, laboratories today showed hemoglobin 8.5, platelet 231, blood count 9.1, sodium 135, potassium 4.6, CO2 22, BUN 22, creatinine 1.4. Renal consult was requested for evaluation management of elevated BUN and creatinine and if his decreased GFR iscontributing to his anemia. Patient reports:Yes: complaints. Comments:Patient seen and evaluated, HPI no change from initial, feels okay. Review of SystemsConstitutional:Reports: fatigue. Denies: chills, fever. Skin:Reports: swelling. Denies: abrasion, bruising, rash. Allergy/Immun:Denies: hives, itching. Eyes:Denies: redness, discharge. ENT:Denies: ear drainage, ear ringing. Respiratory:Denies: hemoptysis, SOB. Cardiovascular:Denies: chest pain. Objective GeneralVS/I O:Vital Signs: Date Time Temp Pulse Resp B/P [...] Output, Urine 1999 PATIENT WEIGHT: Weight (lb): 167Weight (oz): 12.35Weight (kg): 76.100 MedicationsActive Meds + DC'd Last 24 HrsPrednisone (predniSONE) 60 MG DAILY 0600 PO Daptomycin (CUBICIN 500MG) 500 MG Q24H IV Sodium Chloride (SODIUM CHLORIDE 0.9%) 50 MLFurosemide (LASIX 40 mg/4 mL INJECTION) 40 MG Q8HR IV (DC) Hydralazine HCl (APRESOLINE) 75 MG Q8HR PO Hydralazine HCl (APRESOLINE) 50 MG Q8HR PO (DC) Daptomycin (CUBICIN 500MG) 500 MG Q48H IV (DC) Sodium Chloride (SODIUM CHLORIDE 0.9%) 50 MLInsulin Human Lispro (HUMALOG) 10 UNIT AC SUBQ Heparin Sodium (HEPARIN 5000 UNITS/ML) 5,000 UNIT Q12HR SUBQ (DC) Insulin Glargine (Semglee) 20 UNIT BEDTIME SUBQ Meropenem (MEROPENEM) 500 MG Q8H IV Sterile Water (WATER FOR INJECTION) 10 MLCarvedilol (COREG) 25 MG C BK DIN PO Gabapentin (NEURONTIN) 100 MG Q8HR PO Oxycodone/Acetaminophen (PERCOCET 5/325MG TAB) 2 TAB Q4H PRN PRN PO Folic Acid (FOLIC ACID) 2 MG DAILY PO Multivitamins (TAB-A-MOHAN) 1 TAB DAILY PO Furosemide (LASIX 20MG INJ) 20 MG BLOOD-DOSE BETWEEN IV (CKD) Sodium Chloride (SODIUM CHLORIDE) 10 ML ASDIR IV Pantoprazole Sodium (PROTONIX) 40 MG Q12HR IV Polyethylene Glycol (MIRALAX) 17 GM DAILY PO Sennosides (Senna Lax 8.6 MG TABLET) 8.6 MG DAILY PO Sodium Chloride (SODIUM CHLORIDE) 10 ML ASDIR PRN IV Amitriptyline HCl (ELAVIL) 25 MG BEDTIME PO Zinc Oxide (ZINC OXIDE 30 GM OINTMENT) 1 APPLIC DAILY TOPICAL Sterile Water (WATER FOR IRRIGATION) DRESSING CHANGE ASDIR PRN IRR Insulin Human Lispro (HUMALOG) 0 AC HS SUBQ Dextrose/Water (DEXTROSE 10% IN WATER) 125 ML ASDIR PRN IV (CKD) Dextrose/Water (DEXTROSE 10% IN WATER) 250 ML ASDIR PRN IV (CKD) Glucagon (GLUCAGON) 1 MG ASDIR PRN IM Lidocaine (LIDODERM) 1 PATCH DAILY TOPICAL Acetaminophen (TYLENOL) 650 MG Q6H PRN PRN PO Bisacodyl (DULCOLAX) 10 MG DAILY PRN PRN RECTAL Docusate Sodium (COLACE) 100 MG Q12H PRN PRN PO Hydralazine HCl (APRESOLINE) 10 MG Q6H PRN PRN IV Ondansetron HCl (ZOFRAN) 4 MG Q6H PRN PRN IV Physical ExamGeneral appearance: alert, no acute distressHead/eyes: atraumatic, normocephalicENT: normal noseNeck: non-tender, supple/no meningismusCardiovascular: normal heart sounds, no rubRespiratory: aerating well, symmetric expansionAbdomen: non-tender, softGenitourinary: no flank painExtremities: non-tender, no edemaMusculoskeletal: no CVA tenderness, no tendernessNeuro/DIRECTOR OPERATING ROOM: alert, 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 Considered stroke alert: noSkin: dry, intact ResultsFindings/Data:Laboratory Tests 09/19 09/19 09/18 09/18 09/18 0501 [...] MG/DL) 291 H 219 H 62 L 60 L Calcium (8.0 - 10.5 mg/dL) 7.4 [...] (14.0 - 32.0 %) 17.4 10.2 L [place] % (Auto) (4.8 - 9.0 %) 6.9 2.9 L Eos % (Auto) (0.3 - 3.7 %) 0.1 L 0.0 L Baso % (Auto) (0.0 - 2.0 %) 0.1 0.1 Neut # (Auto) (2.0 - 7.6 x10 3/uL) 7.91 H 7.58 Lymph # (Auto) (1.0 - 3.8 x10 3/uL) 1.85 0.91 L [place] # (Auto) (0.1 - 0.8 x10 3/uL) 0.73 0.26 Eos # (Auto) (0.0 - 0.2 x10 3/uL) 0.01 0.00 Baso # (Auto) (0.0 - 0.2 x10 3/uL) 0.01 0.01 Abs Immat Gran (auto) (0.00 - 0.03 x10 3/uL) 0.10 H 0.14 H Add Manual Diff NO NO Immature Gran % (0.0 - 2.0 %) 0.9 1.6 Nucleated RBC % (0 - 0 %) 0.0 0.0 Nucleated RBCs # (Man) (0.0 - 0.1 x10 3/uL) 0.00 0.00 Laboratory Tests 09/19 09/19 09/18 09/18 [...] 110 MG/DL) 80 171 H Diagnosis, Assessment PlanFree Text A P:Patient seen and evaluated, discussed with care team, images and laboratories reviewed.Diabetes mellitus: Insulin: Monitor blood sugar closely and adjust medications as needed, followed by endocrinology.Hypertension: Blood pressure is not well controlled, increase Coreg to 12.5 mg p.o. twice daily: Monitor blood pressure closely and adjust medications as neededRight foot gangrene/infection status post right BKAAnemia: Status post EGD and colonoscopy which were negative for active GI bleeding, patient had work-up in July 2022 which showed very high B12, normal folate, very low iron saturation but very high ferritin which was likely relatedto his infection, likely patient is very iron deficient, will repeat lab and give IV iron if needed. We will check serum immunofixation.Acute kidney injury: We will check renal bladder ultrasound, check postvoid residual, check urine protein creatinine ratioHypomagnesemia: We will supplement09/10/2022 laboratory this morning showed sodium 135, potassium 4.2, CO2 21, BUN 25, creatinine 1.9 continues to worsen, etiology unclear, however his development some eosinophilia not sure if he is developing AIN, suggest changingcefepime to a different class of antibiotic if possible, will check renal bladder ultrasound09/11/2022 laboratory this morning showed sodium 134, potassium 4.3, CO2 22, BUN 26, creatinine 2 up from 1.9, hopefully creatinine is plateauing, renal ultrasound negative.09/12/2022 laboratory this morning showed sodium 134, potassium 4.2, CO2 20, BUN 31, creatinine 2.4 continues to worsen, discussed with ID, AIN is probably the etiology of the unexplained deterioration of his renal function, antibiotics to be adjusted by infectious disease, will give Solu-Medrol 125 mg IV daily for 3 days. Significant lower extremity edema, will start Lasix 20 mg p.o. twice daily.09.13.22: pt was seen and examined. Very thirsty. serum creatinine is worsening today. Vancomycin was stopped yesterday and Solu medrol was started. Mild hypovolemic hyponatremia. Will DC lasix and monitor his renal functions. BP is well controlled. 23: pt was seen and examined. Feels better but still thirsty. I stopped hislasix. will start NS at 75 cc for one Leter only. serum creatinine is improving.Received three doses of Solu Medrol a well. BP is on the higher side, likely secondary to steroids. will monitor for now. mild hypovelmic hyponatremia. also could be secondary to hyperglycemia. 09/15/2022 we will give additional dose of Solu-Medrol 125 mg IV today, laboratory this morning showed sodium 132, potassium 4.7, CO2 17, chloride 105, BUN 38, creatinine 2.9, glucose 312, hemoglobin 8.2, platelet 341, blood count 8.7, needs better blood sugar control, if creatinine does not start improving the next couple days will plan for kidney biopsy09/16/2022 laboratory this morning showed sodium 135, potassium 4.5, CO2 20, BUN 60, creatinine 2.7, better down from 2.9, hemoglobin 7.6, platelet 360, blood count 9.5, will give prednisone 80 mg p.o. today, blood pressure is elevated, will add hydralazine 25 mg p.o. 3 times daily, scrotal and LE swelling will giveLasix 40 mg IV x blood pressure still elevated, will increase hydralazine to 50 mg p.o.3 times daily, will give 80 mg of prednisone today, urine output with Lasix 4125, laboratory this morning showed sodium 136, potassium 4.5, CO2 21, BUN 66, creatinine 2.4 down from 2.7, will give 3 more doses of IV Lasix 40 mg every 8 hours09/18/2022 laboratory this morning showed sodium 138, potassium 4.1, CO2 21, BUN 66, creatinine 2.2 continues to improve, urine output 2.7 L, hemoglobin 7.6, platelet 341, blood count 10.6, will give Lasix 40 mg IV every 8 for 3 doses, start prednisone 60 mg p.o. daily for 3 days, increase hydralazine to 75 mg p.o.3 times daily.09/19/2022 blood pressure better, sodium 139, potassium 3.8, CO2 22, BUN 72 up from 66, creatinine 2.3 up from 2.2, will hold off diuretics, urine output reported 2 L, magnesium 1.69 we will give magnesium sulfate 2 g IV x1, continue prednisone.Consultants: cardiology, endocrinology, hospitalist, infectious disease, podiatry at 0920 RPT #:[id number] OF REPORTPRProgress [id number]:38:00G.[id number] able for patient itqiAPZQPFKCGGJJSX7579-45-25I82:20:32 [facility] 2022-09-18 17:41:00 [id number]+ [id number]/IP5TtD00sVg sNK3N4O04IYx1xKum8m9BOqn2cc0603-39-87W60:41:00 [facility])Endocrinology Progress NoteREPORT#:[id number] REPORT STATUS: SignedDATE:09/18/22 TIME: 1740 PATIENT: KARMA ROWLAND UNIT #: [id number]#: [id number] [address] AGE: 56 SEX: M ATTEND: Mj Vences MDADM AUTHOR: Braxton Chapin MD * ALL edits or amendments must be made on the electronic/computer document * SubjectivePatient reports: no complaints Objective GeneralVS:Last Documented: Result Date Time Pulse Ox 98 09/18 1441 B/P 157/80 09/18 1441 B/P Mean 105.5 09/18 1441 O2 Delivery Room air 09/18 1441 Pulse 77 09/18 1441 Resp 18 09/18 1441 Temp 36.7 09/18 0649 O2 Flow Rate 2 09/08 1322 PATIENT WEIGHT: Weight (lb): 167Weight (oz): 12.35Weight (kg): 76.100 Medications:Active Meds + DC'd Last 24 HrsPrednisone (predniSONE) 60 MG DAILY 0600 PO Daptomycin (CUBICIN 500MG) 500 MG Q24H IV Sodium Chloride (SODIUM CHLORIDE 0.9%) 50 MLFurosemide (LASIX 40 mg/4 mL INJECTION) 40 MG Q8HR IV Hydralazine HCl (APRESOLINE) 75 MG Q8HR PO Furosemide (LASIX 40 mg/4 mL INJECTION) 40 MG Q8HR IV (DC) Hydralazine HCl (APRESOLINE) 50 MG Q8HR PO (DC) Daptomycin (CUBICIN 500MG) 500 MG Q48H IV (DC) Sodium Chloride (SODIUM CHLORIDE 0.9%) 50 MLInsulin Human Lispro (HUMALOG) 10 UNIT AC SUBQ Heparin Sodium (HEPARIN 5000 UNITS/ML) 5,000 UNIT Q12HR SUBQ (DC) Insulin Glargine (Semglee) 20 UNIT BEDTIME SUBQ Meropenem (MEROPENEM) 500 MG Q8H IV Sterile Water (WATER FOR INJECTION) 10 MLCarvedilol (COREG) 25 MG C BK DIN PO Gabapentin (NEURONTIN) 100 MG Q8HR PO Oxycodone/Acetaminophen (PERCOCET 5/325MG TAB) 2 TAB Q4H PRN PRN PO Folic Acid (FOLIC ACID) 2 MG DAILY PO Multivitamins (TAB-A-MOHAN) 1 TAB DAILY PO Furosemide (LASIX 20MG INJ) 20 MG BLOOD-DOSE BETWEEN IV (CKD) Sodium Chloride (SODIUM CHLORIDE) 10 ML ASDIR IV Pantoprazole Sodium (PROTONIX) 40 MG Q12HR IV Polyethylene Glycol (MIRALAX) 17 GM DAILY PO Sennosides (Senna Lax 8.6 MG TABLET) 8.6 MG DAILY PO Sodium Chloride (SODIUM CHLORIDE) 10 ML ASDIR PRN IV Amitriptyline HCl (ELAVIL) 25 MG BEDTIME PO Zinc Oxide (ZINC OXIDE 30 GM OINTMENT) 1 APPLIC DAILY TOPICAL Sterile Water (WATER FOR IRRIGATION) DRESSING CHANGE ASDIR PRN IRR Insulin Human Lispro (HUMALOG) 0 AC HS SUBQ Dextrose/Water (DEXTROSE 10% IN WATER) 125 ML ASDIR PRN IV (CKD) Dextrose/Water (DEXTROSE 10% IN WATER) 250 ML ASDIR PRN IV (CKD) Glucagon (GLUCAGON) 1 MG ASDIR PRN IM Lidocaine (LIDODERM) 1 PATCH DAILY TOPICAL Acetaminophen (TYLENOL) 650 MG Q6H PRN PRN PO Bisacodyl (DULCOLAX) 10 MG DAILY PRN PRN RECTAL Docusate Sodium (COLACE) 100 MG Q12H PRN PRN PO Hydralazine HCl (APRESOLINE) 10 MG Q6H PRN PRN IV Ondansetron HCl (ZOFRAN) 4 MG Q6H PRN PRN IV Physical ExamGeneral appearance: alert, awake Diagnosis, Assessment PlanHospital course to date:Laboratory Tests: 09/18 09/18 09/18 09/18 1611 1102 [...] % (Auto) (14.0 - 32.0 %) 17.4 [place] % (Auto) (4.8 - 9.0 %) 6.9 Eos % (Auto) (0.3 - 3.7 %) 0.1 L Baso % (Auto) (0.0 - 2.0 %) 0.1 Neut # (Auto) (2.0 - 7.6 x10 3/uL) 7.91 H Lymph # (Auto) (1.0 - 3.8 x10 3/uL) 1.85 [place] # (Auto) (0.1 - 0.8 x10 3/uL) 0.73 Eos # (Auto) (0.0 - 0.2 x10 3/uL) 0.01 Baso # (Auto) (0.0 - 0.2 x10 3/uL) 0.01 Abs Immat Gran (auto) (0.00 - 0.03 x10 3/uL) 0.10 H Add Manual Diff NO Immature Gran % (0.0 - 2.0 %) 0.9 Nucleated RBC % (0 - 0 %) 0.0 Nucleated RBCs # (Man) (0.0 - 0.1 x10 3/uL) 0.00 Laboratory Tests: 09/17 09/17 09/17 09/17 09/17 [...] (Auto) (14.0 - 32.0 %) 10.2 L [place] % (Auto) (4.8 - 9.0 %) 2.9 L Eos % (Auto) (0.3 - 3.7 %) 0.0 L Baso % (Auto) (0.0 - 2.0 %) 0.1 Neut # (Auto) (2.0 - 7.6 x10 3/uL) 7.58 Lymph # (Auto) (1.0 - 3.8 x10 3/uL) 0.91 L [place] # (Auto) (0.1 - 0.8 x10 3/uL) 0.26 Eos # (Auto) (0.0 - 0.2 x10 3/uL) 0.00 Baso # (Auto) (0.0 - 0.2 x10 3/uL) 0.01 Abs Immat Gran (auto) (0.00 - 0.03 x10 3/uL) 0.14 H Add Manual Diff NO Immature Gran % (0.0 - 2.0 %) 1.6 Nucleated RBC % (0 - 0 %) 0.0 Nucleated RBCs # (Man) (0.0 - 0.1 x10 3/uL) 0.00 Laboratory Tests: 09/16 09/16 09/16 09/16 1549 1441 1110 0553 Chemistry POC Glucose (70 - 110 MG/DL) 62 L 60 L 148 H 195 H 09/16 09/15 0455 1937 Chemistry Sodium [...] % (Auto) (14.0 - 32.0 %) 18.6 [place] % (Auto) (4.8 - 9.0 %) 6.7 Eos % (Auto) (0.3 - 3.7 %) 0.2 L Baso % (Auto) (0.0 - 2.0 %) 0.1 Neut # (Auto) (2.0 - 7.6 x10 3/uL) 6.99 Lymph # (Auto) (1.0 - 3.8 x10 3/uL) 1.77 [place] # (Auto) (0.1 - 0.8 x10 3/uL) 0.64 Eos # (Auto) (0.0 - 0.2 x10 3/uL) 0.02 Baso # (Auto) (0.0 - 0.2 x10 3/uL) 0.01 Abs Immat Gran (auto) (0.00 - 0.03 x10 3/uL) 0.10 H Add Manual Diff NO Immature Gran % (0.0 - 2.0 %) 1.0 Nucleated RBC % (0 - 0 %) 0.0 Nucleated RBCs # (Man) (0.0 - 0.1 x10 3/uL) 0.00 Laboratory Tests: 09/15 09/15 09/15 09/15 1640 1304 1154 0519 Chemistry POC Glucose (70 - 110 MG/DL) 137 H 126 H 309 H Urines Urine Color (YEL/STRAW) YELLOW Urine Appearance (CLEAR) SL CLOUDY Urine pH (5.0 - 7.0) 5.0 Ur Specific [place] (1.005 - 1.030) 1.013 Urine Protein (NEGATIVE) [...] (Auto) (14.0 - 32.0 %) 11.3 L [place] % (Auto) (4.8 - 9.0 %) 3.2 L Eos % (Auto) (0.3 - 3.7 %) 0.0 L Baso % (Auto) (0.0 - 2.0 %) 0.1 Neut # (Auto) (2.0 - 7.6 x10 3/uL) 7.35 Lymph # (Auto) (1.0 - 3.8 x10 3/uL) 0.98 L [place] # (Auto) (0.1 - 0.8 x10 3/uL) 0.28 Eos # (Auto) (0.0 - 0.2 x10 3/uL) 0.00 Baso # (Auto) (0.0 - 0.2 x10 3/uL) 0.01 Abs Immat Gran (auto) (0.00 - 0.03 x10 3/uL) 0.04 H Add Manual Diff NO Immature Gran % (0.0 - 2.0 %) 0.5 Nucleated RBC % (0 - 0 %) 0.0 Nucleated RBCs # (Man) (0.0 - 0.1 x10 3/uL) 0.00 Microbiology: Date/Time Procedure - Status Source Growth 09/15 0415 MRSA DNA Surveillance Screen - COMP NASAL Laboratory Tests: 09/14 09/14 09/14 09/14 09/13 1130 0736 0526 0526 1937Chemistry Sodium (134 - 147 mEq/L) 132 L [...] H Calcium (8.0 - 10.5 mg/dL) 7.5 LHematology WBC (4.5 - 11.0 x10 3/uL) 9.5 [...] (Auto) (14.0 - 32.0 %) 13.9 L [place] % (Auto) (4.8 - 9.0 %) 5.1 Eos % (Auto) (0.3 - 3.7 %) 0.0 L Baso % (Auto) (0.0 - 2.0 %) 0.1 Neut # (Auto) (2.0 - 7.6 x10 3/uL) 7.58 Lymph # (Auto) (1.0 - 3.8 x10 3/uL) 1.31 [place] # (Auto) (0.1 - 0.8 x10 3/uL) 0.48 Eos # (Auto) (0.0 - 0.2 x10 3/uL) 0.00 Baso # (Auto) (0.0 - 0.2 x10 3/uL) 0.01 Abs Immat Gran (auto) (0.00 - 0.03 0.07 Hx10 3/uL) Add Manual Diff NO Immature Gran % (0.0 - 2.0 %) 0.7 Nucleated RBC % (0 - 0 %) 0.0 Nucleated RBCs # (Man) (0.0 - 0.1 0.00x10 3/uL) 09/13 1629 Chemistry POC Glucose (70 [...] (Auto) (14.0 - 32.0 %) 10.4 L [place] % (Auto) (4.8 - 9.0 %) 3.5 L Eos % (Auto) (0.3 - 3.7 %) 0.0 L Baso % (Auto) (0.0 - 2.0 %) 0.1 Neut # (Auto) (2.0 - 7.6 x10 3/uL) 8.34 H Lymph # (Auto) (1.0 - 3.8 x10 3/uL) 1.02 [place] # (Auto) (0.1 - 0.8 x10 3/uL) 0.34 Eos # (Auto) (0.0 - 0.2 x10 3/uL) 0.00 Baso # (Auto) (0.0 - 0.2 x10 3/uL) 0.01 Abs Immat Gran (auto) (0.00 - 0.03 x10 3/uL) 0.07 H Add Manual Diff NO Immature Gran % (0.0 - 2.0 %) 0.7 Nucleated RBC % (0 - 0 %) 0.0 Nucleated RBCs # (Man) (0.0 - 0.1 x10 3/uL) 0.00 Microbiology: Date/Time Procedure - Status Source Growth [...] % (Auto) (14.0 - 32.0 %) 15.0 [place] % (Auto) (4.8 - 9.0 %) 7.9 Eos % (Auto) (0.3 - 3.7 %) 3.8 H Baso % (Auto) (0.0 - 2.0 %) 0.3 Neut # (Auto) (2.0 - 7.6 x10 3/uL) 6.34 Lymph # (Auto) (1.0 - 3.8 x10 3/uL) 1.31 [place] # (Auto) (0.1 - 0.8 x10 3/uL) 0.69 Eos # (Auto) (0.0 - 0.2 x10 3/uL) 0.33 H Baso # (Auto) (0.0 - 0.2 x10 3/uL) 0.03 Abs Immat Gran (auto) (0.00 - 0.03 x10 3/uL) 0.06 H Add Manual Diff NO Immature Gran % (0.0 - 2.0 %) 0.7 Nucleated RBC % (0 - 0 %) 0.0 Nucleated RBCs # (Man) (0.0 - 0.1 x10 3/uL) 0.00 Toxicology Random Vancomycin (mcg/mL) 16.7 Laboratory Tests: 09/11 09/11 09/11 09/11 09/11 1532 1445 1114 0541 0445Chemistry Sodium (134 - 147 mEq/L) 134 Potassium [...] MG/DL) 4.7 Magnesium (1.80 - 2.40 mg/dL) 1.90Hematology WBC (4.5 - 11.0 x10 3/uL) 7.9 [...] % (Auto) (14.0 - 32.0 %) 16.1 [place] % (Auto) (4.8 - 9.0 %) 9.1 H Eos % (Auto) (0.3 - 3.7 %) 5.6 H Baso % (Auto) (0.0 - 2.0 %) 0.5 Neut # (Auto) (2.0 - 7.6 x10 3/uL) 5.35 Lymph # (Auto) (1.0 - 3.8 x10 3/uL) 1.27 [place] # (Auto) (0.1 - 0.8 x10 3/uL) 0.72 Eos # (Auto) (0.0 - 0.2 x10 3/uL) 0.44 H Baso # (Auto) (0.0 - 0.2 x10 3/uL) 0.04 Abs Immat Gran (auto) (0.00 - 0.03 0.06 Hx10 3/uL) Add Manual Diff NO Immature Gran % (0.0 - 2.0 %) 0.8 Nucleated RBC % (0 - 0 %) 0.0 Nucleated RBCs # (Man) (0.0 - 0.1 0.00x10 3/uL)Toxicology Random Vancomycin (mcg/mL) 18.3 09/10 1851 Chemistry POC Glucose (70 - 110 MG/DL) 97 Laboratory Tests: 09/10 09/10 09/10 09/10 09/10 1715 1625 1430 1007 0545Chemistry Sodium (134 - 147 mEq/L) 135 Potassium [...] MG/DL) 4.6 Magnesium (1.80 - 2.40 mg/dL) 1.89Hematology WBC (4.5 - 11.0 x10 3/uL) 8.6 [...] % (Auto) (14.0 - 32.0 %) 15.5 [place] % (Auto) (4.8 - 9.0 %) 8.5 Eos % (Auto) (0.3 - 3.7 %) 5.5 H Baso % (Auto) (0.0 - 2.0 %) 0.4 Neut # (Auto) (2.0 - 7.6 x10 3/uL) 5.94 Lymph # (Auto) (1.0 - 3.8 x10 3/uL) 1.33 [place] # (Auto) (0.1 - 0.8 x10 3/uL) 0.73 Eos # (Auto) (0.0 - 0.2 x10 3/uL) 0.47 H Baso # (Auto) (0.0 - 0.2 x10 3/uL) 0.03 Abs Immat Gran (auto) (0.00 - 0.03 0.06 Hx10 3/uL) Add Manual Diff NO Immature Gran % (0.0 - 2.0 %) 0.7 Nucleated RBC % (0 - 0 %) 0.0 Nucleated RBCs # (Man) (0.0 - 0.1 0.00x10 3/uL)Toxicology Random Vancomycin (mcg/mL) 15.7 09/10 09/09 0541 1911 Chemistry POC Glucose (70 - 110 MG/DL) 154 H 102 Recent Impressions:ULTRASOUND - US RETROPERITONEAL COM 09/10 1311 Report Impression - Status: SIGNED Entered: 09/10/2022 1503 IMPRESSION: No acute findings. Impression By: Yared Mares M.D. Laboratory Tests: 09/09 09/09 09/09 09/09 09/09 [...] % (Auto) (14.0 - 32.0 %) 16.1 [place] % (Auto) (4.8 - 9.0 %) 9.2 H Eos % (Auto) (0.3 - 3.7 %) 4.7 H Baso % (Auto) (0.0 - 2.0 %) 0.4 Neut # (Auto) (2.0 - 7.6 x10 3/uL) 6.38 Lymph # (Auto) (1.0 - 3.8 x10 3/uL) 1.49 [place] # (Auto) (0.1 - 0.8 x10 3/uL) 0.85 H Eos # (Auto) (0.0 - 0.2 x10 3/uL) 0.43 H Baso # (Auto) (0.0 - 0.2 x10 3/uL) 0.04 Abs Immat Gran (auto) (0.00 - 0.03 x10 3/uL) 0.05 H Add Manual Diff NO Immature Gran % (0.0 - 2.0 %) 0.5 Nucleated RBC % (0 - 0 %) 0.0 Nucleated RBCs # (Man) (0.0 - 0.1 x10 3/uL) 0.00 Retic Count (auto) (0.3 - 2.3 [...] (Auto) (14.0 - 32.0 %) 13.7 L [place] % (Auto) (4.8 - 9.0 %) 7.2 Eos % (Auto) (0.3 - 3.7 %) 4.8 H Baso % (Auto) (0.0 - 2.0 %) 0.3 Neut # (Auto) (2.0 - 7.6 x10 3/uL) 6.64 Lymph # (Auto) (1.0 - 3.8 x10 3/uL) 1.24 [place] # (Auto) (0.1 - 0.8 x10 3/uL) 0.65 Eos # (Auto) (0.0 - 0.2 x10 3/uL) 0.43 H Baso # (Auto) (0.0 - 0.2 x10 3/uL) 0.03 Abs Immat Gran (auto) (0.00 - 0.03 x10 3/uL) 0.06 H Add Manual Diff NO Immature Gran % (0.0 - 2.0 %) 0.7 Nucleated RBC % (0 - 0 %) 0.0 Nucleated RBCs # (Man) (0.0 - 0.1 x10 3/uL) 0.00 Laboratory Tests: 09/07 09/07 09/07 09/07 09/07 1554 1137 1127 0618 0510 Chemistry Creatinine (0.6 - 1.3 mg/dL) 1.4 H POC Glucose (70 - 110 MG/DL) 112 H 51 L 42 L 135 H Hematology Hgb (12.5 - 16.9 [...] 1739 Occult Blood - COMP STOOL Recent Impressions:RADIOLOGY - XR ABDOMEN 1V (KUB) 09/04 1648 Report Impression - Status: SIGNED Entered: 09/04/2022 102 IMPRESSION: Benign appearance of the abdomen.Impression By: [email or web address] - Roger Parra M.D.ULTRASOUND - DUP VEIN UNI/LTD 09/05 1146 Report Impression - Status: SIGNED Entered: 09/05/2022 1333 IMPRESSION: 1. No evidence of deep vein thrombosis. 2. Complex heterogeneous hypoechoic fluid collection in the left calf region measuring 8.4 x 2.8 x 2.5 cm; there is no internal vascularity or peripheral hyperemia. May represent a hematoma.Impression By: [email or web address] - Mert Ga M.D.RADIOLOGY - XR CHEST 1 V 09/05 1432 Report Impression - Status: SIGNED Entered: 09/05/2022 1515 IMPRESSION: Minimal bibasilar pulmonary opacitiesImpression By: TipTDO Cr Mares M.D. Laboratory Tests: 09/04 09/04 09/04 09/04 09/04 [...] COLB STOOL 1.Diabetes mellitus type 2 uncontrolled complications.2. Status post right BKA3. Status post gangrene of the right foot.4. Sepsis5. Prostate abscess.6. AnemiaBlood sugar 201-80 mg/dL.H/H 8.11/17.Adjust insulin dose.PT and OT. at 1742 RPT #:[id number] OF REPORTPRProgress [id number]:41:00G.[id number] able for patient idaoNMRGLOAPVJTALA0576-38-08F66:42:53 [facility] 2022-09-18 17:39:00 [id number] lA9jTMZFiN5forpfRP5+h4AEOcs08 DPbifcp+yyCs1jTLK36T0pGHDYP1255-97-29G28:39:00 [facility])Podiatry Progress NoteREPORT#:[id number] REPORT STATUS: SignedDATE:09/18/22 TIME: 173 PATIENT: KARMA ROWLAND UNIT #: [id number]#: [id number] [address] [birth year] AGE: 56 SEX: M ATTEND: Mj Vences [facility] AUTHOR: Liam Pedersen DPM * ALL edits or amendments must be made on the electronic/computer document * SubjectiveChief complaint:left heel ulcer. left ankle painPatient reports: no confusion, no constipation, no dizziness, no fever, no itching Objective GeneralVS:Last Documented: Result Date Time Pulse Ox 98 09/18 1441 B/P 157/80 09/18 1441 B/P Mean 105.5 09/18 1441 O2 Delivery Room air 09/18 1441 Pulse 77 09/18 1441 Resp 18 09/18 1441 Temp 36.7 09/18 0649 O2 Flow Rate 2 09/08 1322 PATIENT WEIGHT: Weight (lb): 167Weight (oz): 12.35Weight (kg): 76.100 Medications:Active Meds + DC'd Last 24 HrsPrednisone (predniSONE) 60 MG DAILY 0600 PO Daptomycin (CUBICIN 500MG) 500 MG Q24H IV Sodium Chloride (SODIUM CHLORIDE 0.9%) 50 MLFurosemide (LASIX 40 mg/4 mL INJECTION) 40 MG Q8HR IV Hydralazine HCl (APRESOLINE) 75 MG Q8HR PO Furosemide (LASIX 40 mg/4 mL INJECTION) 40 MG Q8HR IV (DC) Hydralazine HCl (APRESOLINE) 50 MG Q8HR PO (DC) Daptomycin (CUBICIN 500MG) 500 MG Q48H IV (DC) Sodium Chloride (SODIUM CHLORIDE 0.9%) 50 MLInsulin Human Lispro (HUMALOG) 10 UNIT AC SUBQ Heparin Sodium (HEPARIN 5000 UNITS/ML) 5,000 UNIT Q12HR SUBQ (DC) Insulin Glargine (Semglee) 20 UNIT BEDTIME SUBQ Meropenem (MEROPENEM) 500 MG Q8H IV Sterile Water (WATER FOR INJECTION) 10 MLCarvedilol (COREG) 25 MG C BK DIN PO Gabapentin (NEURONTIN) 100 MG Q8HR PO Oxycodone/Acetaminophen (PERCOCET 5/325MG TAB) 2 TAB Q4H PRN PRN PO Folic Acid (FOLIC ACID) 2 MG DAILY PO Multivitamins (TAB-A-MOHAN) 1 TAB DAILY PO Furosemide (LASIX 20MG INJ) 20 MG BLOOD-DOSE BETWEEN IV (CKD) Sodium Chloride (SODIUM CHLORIDE) 10 ML ASDIR IV Pantoprazole Sodium (PROTONIX) 40 MG Q12HR IV Polyethylene Glycol (MIRALAX) 17 GM DAILY PO Sennosides (Senna Lax 8.6 MG TABLET) 8.6 MG DAILY PO Sodium Chloride (SODIUM CHLORIDE) 10 ML ASDIR PRN IV Amitriptyline HCl (ELAVIL) 25 MG BEDTIME PO Zinc Oxide (ZINC OXIDE 30 GM OINTMENT) 1 APPLIC DAILY TOPICAL Sterile Water (WATER FOR IRRIGATION) DRESSING CHANGE ASDIR PRN IRR Insulin Human Lispro (HUMALOG) 0 AC HS SUBQ Dextrose/Water (DEXTROSE 10% IN WATER) 125 ML ASDIR PRN IV (CKD) Dextrose/Water (DEXTROSE 10% IN WATER) 250 ML ASDIR PRN IV (CKD) Glucagon (GLUCAGON) 1 MG ASDIR PRN IM Lidocaine (LIDODERM) 1 PATCH DAILY TOPICAL Acetaminophen (TYLENOL) 650 MG Q6H PRN PRN PO Bisacodyl (DULCOLAX) 10 MG DAILY PRN PRN RECTAL Docusate Sodium (COLACE) 100 MG Q12H PRN PRN PO Hydralazine HCl (APRESOLINE) 10 MG Q6H PRN PRN IV Ondansetron HCl (ZOFRAN) 4 MG Q6H PRN PRN IV I O:24 hour I O ending at 0700: 09/18 0700 09/17 1900 Intake Total 200 835 Output Total 2700 Balance -2500 835 Intake, Oral 200 835 Number 0 Incontinent Voids Number Voids 0 Output, Urine 2700 Patient 76.1 kg Weight Weight Bed scale Measurement Method Dietitian nutrition assessmentThe data set between the solid lines has been imported from the dietitian's assessment. BMI Calculated: 27.1Nutrition related diagnosis: Nutrition diagnosis details: Nutrition problem: Altered nutrition labsNutrition etiology: DMNutrition signs and symptoms: HYPER/HYPOGLYCEMIA, A1C >14Nutrition prescription: CONTINUE RENAL DM DIETDietitian name: You Spencer DIETAssessment completed: 09/18/22 Physical ExamGeneral appearance: alert, awake, orientedWound/incision: Location:left foot Site condition: dp/pt 2/4 left. light touch decreased left foot. ulcer starting at posterior left heel. eccymosis noted. early likely stage 1. left ankle has edema. pain with aggressive ROM left ankle. dorsal left midfoot is starting to have tissue injuryLE vascular pulse assess:2+ L posterior tibialis, 2+ L dorsalis pedis Considered stroke alert: noUlcer: Location: DTI dorsal left midfoot ResultsFindings/Data:Laboratory Tests: 09/18 09/18 09/18 09/18 1611 1102 [...] % (Auto) (14.0 - 32.0 %) 17.4 Lenoir % (Auto) (4.8 - 9.0 %) 6.9 Eos % (Auto) (0.3 - 3.7 %) 0.1 L Baso % (Auto) (0.0 - 2.0 %) 0.1 Neut # (Auto) (2.0 - 7.6 x10 3/uL) 7.91 H Lymph # (Auto) (1.0 - 3.8 x10 3/uL) 1.85 Lenoir # (Auto) (0.1 - 0.8 x10 3/uL) 0.73 Eos # (Auto) (0.0 - 0.2 x10 3/uL) 0.01 Baso # (Auto) (0.0 - 0.2 x10 3/uL) 0.01 Abs Immat Gran (auto) (0.00 - 0.03 x10 3/uL) 0.10 H Add Manual Diff NO Immature Gran % (0.0 - 2.0 %) 0.9 Nucleated RBC % (0 - 0 %) 0.0 Nucleated RBCs # (Man) (0.0 - 0.1 x10 3/uL) 0.00 Diagnosis, Assessment PlanFree Text A P:DM with neuropathyearly decub ulcer left heelOA/edema left ankleearly ulcer/DTI dorsal left midfoot zinc oxide to foot and heelfoam to heelon IV abxon PO gabapentinoffloading bootace wraps to ankle, only when OOB with therapy.zinc oxide interchange with bactroban to dorsal left footConsultants: cardiology, endocrinology, hospitalist, infectious disease, podiatry at 1741 RPT #:[id number] OF REPORTPRProgress [id number]:39:00G.[id number] able for patient voflMSJVYKSAPIMCUS7477-08-42K51:41:43 [facility] 2022-09-18 15:52:00 [id number] G7yilm9G4N7RR/+nXOEoma/L7TXuC tdTb88vl4fE6+qq2ndEoshLZ3/s4506-40-88X07:52:00 [facility] Progress NoteREPORT#:[id number] REPORT STATUS: SignedDATE:09/18/22 TIME: 1552 PATIENT: KARMA ROWLAND UNIT #: [id number]#: [id number] [address] AGE: 56 SEX: M [facility]END[facility] AUTHOR: Kassie Avitia MD * ALL edits or amendments must be made on the electronic/computer document * SubjectiveHPI:Patient is a 56-year-old male with history of diabetes mellitus type 2 and hypertension who was initially admitted for altered mental status and right-sided foot infection. 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 He subsequently underwent right BKA on 4/6/23, and is now in rehab receiving physical therapy and wound care. The patient is anemic with current Hgb 7.1. He has received a total of 3 units pRBCs during this hospitalization. KUB on 09/04 was negative for acute GI process. The patient denies overt GIB, dark tarry stools, nausea, abdominal pain, or vomiting. He has never had EGD orcolonoscopy. 09/06: No complaints today. Hemoglobin stable. No overt GI bleed. Plan for colonoscopy and endoscopy on Thursday 09/07: No complaints today. No overt GI bleed. Planning for colonoscopy and endoscopy tomorrow 09/08: EGD mild gastritis. colonoscopy rectal polyp s/p snare. No other abnormalities 09/09: doing well. Seen at the gym. No bleeding. 09/10: Doing well. No bleeding. tolerating diet. Movig bowels 09/11: doing well. States his leg swelling is better. Tolerating diet. having normal BM 09/12: dooing well. doing work-out at the gym. Tolerating diet. Normal BMs. Stable H/H4-Sitting up in wheelchair, family at bedside. Denies n/v/abd pain/GIB 09/15: Doing well. H/H stable. No melena or BRBPR. No nausea or vomiting. Appetite is well 09/16: doing well. no complaints. eating well 09/17: stable H/H. No complaints. 09/18/22: H/H fluctuating but overall stable Objective Physical ExamHEENT: atraumatic, normocephalicNeck: full range of motion, non-tenderRespiratory: symmetric expansion, no distressAbdomen: non-tender, normal bowel sounds, soft, no distention, no guardingExtremities: right BKA Considered stroke alert: noSkin: dry Diagnosis, Assessment PlanFree Text A P:1. Positive FOBT-and anemia: The patient denies overt GIB, dark tarry stools, nausea, abdominal pain, or vomiting. He is not on anticoagulation therapy.-Continue PPI. The patient has never had EGD or colonoscopy prior to this admissions/p EGD and colonoscopy. EGD showed mild gastritis. Colonoscopy showed rectal polyp that was resected by snare. no evidence of bleeding. Pathology of polyp came back as tubular adenoma. recommend repeating colonoscopy in 5 years Anemia likely secondary to chronic kidney disease.Can consider video capsule endoscopy as outpt if evidence of dropping H/HH/H remains stable Consider not checking H H dailyWill follow along Consultants: cardiology, endocrinology, hospitalist, infectious disease, podiatry at 1553 RPT #:[id number] OF REPORTPRProgress [id number]:52:00G.[id number] able for patient liwqPVCZIAJMVSMOEW4799-55-06Y70:54:21 [facility] 2022-09-18 15:49:00 [id number] dNQ3loIHHqJJDIghX7+Rmgd/0d5IK i1SCb9+fFZVqfExHYhrwEu5M1hS2873-36-41V10:49:00 [facility] ([facility])Pain Management Progress NoteREPORT#:[id number] REPORT STATUS: SignedDATE:09/18/22 TIME: 1548 PATIENT: KARMA ROWLAND UNIT #: [id number]#: [id number] [address] [birth year] AGE: 56 SEX: M ATTEND: Mj Vences [facility] AUTHOR: Ben Klein * ALL edits or amendments must be made on the electronic/computer document * Ben Klein 09/18/22 1549:SubjectiveChief complaint:Patient seen and examined. Chart/MAR reviewed. Patient slept well overnight. No acute concerns. Pain control is good. No aggravating neuropathy symptoms. Patient being seen for Acute postoperative pain, right foot and ankle gangrene, requiring BKA, Neuropathy, Constipation Patient is still requiring medications to help with managing current problems. No fever/chills, chest pain, orthopnea, nausea/vomiting, pruritus, or hallucinations.14 point ROS undertaken unremarkable except as noted Objective GeneralVS/I O:Vital SignsDate Temp Pulse Resp B/P B/P Mean Pulse Ox OiC083/26-09/18 36.5-36.7 77-90 14-18 153-178/80-88 105.5-116.7 98 Last [...] scale Measurement Method PATIENT WEIGHT: Weight (lb): 167Weight (oz): 12.35Weight (kg): 76.100 Medications:Active Meds + DC'd Last 24 HrsPrednisone (predniSONE) 60 MG DAILY 0600 PO Daptomycin (CUBICIN 500MG) 500 MG Q24H IV Sodium Chloride (SODIUM CHLORIDE 0.9%) 50 MLFurosemide (LASIX 40 mg/4 mL INJECTION) 40 MG Q8HR IV Hydralazine HCl (APRESOLINE) 75 MG Q8HR PO Furosemide (LASIX 40 mg/4 mL INJECTION) 40 MG Q8HR IV (DC) Hydralazine HCl (APRESOLINE) 50 MG Q8HR PO (DC) Daptomycin (CUBICIN 500MG) 500 MG Q48H IV (DC) Sodium Chloride (SODIUM CHLORIDE 0.9%) 50 MLInsulin Human Lispro (HUMALOG) 10 UNIT AC SUBQ Heparin Sodium (HEPARIN 5000 UNITS/ML) 5,000 UNIT Q12HR SUBQ (DC) Insulin Glargine (Semglee) 20 UNIT BEDTIME SUBQ Meropenem (MEROPENEM) 500 MG Q8H IV Sterile Water (WATER FOR INJECTION) 10 MLCarvedilol (COREG) 25 MG C BK DIN PO Gabapentin (NEURONTIN) 100 MG Q8HR PO Oxycodone/Acetaminophen (PERCOCET 5/325MG TAB) 2 TAB Q4H PRN PRN PO Folic Acid (FOLIC ACID) 2 MG DAILY PO Multivitamins (TAB-A-MOHAN) 1 TAB DAILY PO Furosemide (LASIX 20MG INJ) 20 MG BLOOD-DOSE BETWEEN IV (CKD) Sodium Chloride (SODIUM CHLORIDE) 10 ML ASDIR IV Pantoprazole Sodium (PROTONIX) 40 MG Q12HR IV Polyethylene Glycol (MIRALAX) 17 GM DAILY PO Sennosides (Senna Lax 8.6 MG TABLET) 8.6 MG DAILY PO Sodium Chloride (SODIUM CHLORIDE) 10 ML ASDIR PRN IV Amitriptyline HCl (ELAVIL) 25 MG BEDTIME PO Zinc Oxide (ZINC OXIDE 30 GM OINTMENT) 1 APPLIC DAILY TOPICAL Sterile Water (WATER FOR IRRIGATION) DRESSING CHANGE ASDIR PRN IRR Insulin Human Lispro (HUMALOG) 0 AC HS SUBQ Dextrose/Water (DEXTROSE 10% IN WATER) 125 ML ASDIR PRN IV (CKD) Dextrose/Water (DEXTROSE 10% IN WATER) 250 ML ASDIR PRN IV (CKD) Glucagon (GLUCAGON) 1 MG ASDIR PRN IM Lidocaine (LIDODERM) 1 PATCH DAILY TOPICAL Acetaminophen (TYLENOL) 650 MG Q6H PRN PRN PO Bisacodyl (DULCOLAX) 10 MG DAILY PRN PRN RECTAL Docusate Sodium (COLACE) 100 MG Q12H PRN PRN PO Hydralazine HCl (APRESOLINE) 10 MG Q6H PRN PRN IV Ondansetron HCl (ZOFRAN) 4 MG Q6H PRN PRN IV Physical ExamGeneral appearance: alert, awake, oriented, no acute distressHead/eyes: atraumatic, EOMI, normocephalic, normal conjunctiva/sclera, PERRLAENT: normal pharynx, moist mucosal membranesNeck: full range of motion, no lymphadenopathy, supple/no meningismusCardiovascular: regular rate rhythmRespiratory: clear to auscultation, no distressAbdomen: soft, non-tender, no distention, active bowel sounds in all quarants. 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: 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, no sensory deficits, CNII-XII grossly intact Considered stroke alert: noSkin: dry, intact, no rash ResultsFindings/data:Laboratory Tests: 09/18 09/18 09/18 09/18 1102 0906 [...] % (Auto) (14.0 - 32.0 %) 17.4 Lenoir % (Auto) (4.8 - 9.0 %) 6.9 Eos % (Auto) (0.3 - 3.7 %) 0.1 L Baso % (Auto) (0.0 - 2.0 %) 0.1 Neut # (Auto) (2.0 - 7.6 x10 3/uL) 7.91 H Lymph # (Auto) (1.0 - 3.8 x10 3/uL) 1.85 Lenoir # (Auto) (0.1 - 0.8 x10 3/uL) 0.73 Eos # (Auto) (0.0 - 0.2 x10 3/uL) 0.01 Baso # (Auto) (0.0 - 0.2 x10 3/uL) 0.01 Abs Immat Gran (auto) (0.00 - 0.03 x10 3/uL) 0.10 H Add Manual Diff NO Immature Gran % (0.0 - 2.0 %) 0.9 Nucleated RBC % (0 - 0 %) 0.0 Nucleated RBCs # (Man) (0.0 - 0.1 x10 3/uL) 0.00 09/17 09/17 1904 1554 Chemistry POC Glucose (70 - 110 MG/DL) 160 H 75 Diagnosis, Assessment PlanFree text A P:A/P:Patient is a 56 year old male who presents with: Past Medical History: Prostate abscess, right foot foot and ankle gangrene, diabetes, hypertension, hyperlipidemiaPast Surgical History: TURP, right BKAFamily History: NoncontributorySocial History: Denies tobacco, alcohol, or drug useAllergies: NKDA Recent prostate abscess-Status post TURP with unroofing of abscess-IV antibiotics with vancomycin until 09-24-2022 Acute postoperative pain, right foot and ankle gangrene, requiring BKA-Patient is at risk for further amputations or loss of limb due to comorbid conditions-Status post right BKA 08/28/2022-DC Sheldon 10/325 1 tablet p.o. every 4 hours as needed pain scale 4 10-DC Dilaudid 0.5 mg IV daily as needed pain scale 7 10, second line therapy (09/13)-Tylenol 650 mg p.o. every 6 hours as needed pain scale 1 3-Percocet 10/325mg every 4 hours as needed, pain scale 4-10 (09/10)-Lidoderm patch to left ankle daily-IV antibiotics with vancomycin until 09-24-2022-Local wound care-manageable Diabetic peripheral neuropathy-amitriptyline 25mg PO QHS-Gabapentin 100mg every 8 hours (09/10)-manageable Hypertension-We will monitor hypertension and tachycardia due to pain, and hypotension as well as bradycardia secondary over sedation with narcotics-Hydralazine as needed Elevated LFTs-08/20/22-AST 51, ALT 22-09/03/2022-AST 15, ALT 7-Patient will require close monitoring since he is using narcotics with Tylenol Impaired functional mobility, balance, gait, and endurance-PT/OT Antalgic/Impaired gait-PT/OT-Improve strength, endurance, self-care, gait, balance, ADLs-Fall precautions per unit protocol-Pain medications as outlined above Constipation-We will monitor while utilizing opioid narcotic medications.-Adequate fluid intake also discussed.-Colace 100 mg p.o. twice daily as needed-Dulcolax 10 mg rectally daily as needed-Senna lax 8.6mg daily-Miralax 17gm daily-manageable Disposition: percocet 10/325mg q6h prn pain , gabapentin 100mg q8h sent to [facility]/pharmacy #[id number] [facility] [place] [address] ([facility] [address]) Patient has failed conservative medical therapy.Patient will require monitoring while utilize narcotic medications for any adverse effects, and will adjust as neededPlan of care discussed with patient and nurseAll diagnostics of last 24 hours been reviewed. Risks versus benefits of opioid medications were reviewed to include, but not limited to respiratory depression, accidental overdose, altered mental status, sudden , constipation which could result in bowel obstruction, seizures, withdrawal, dependency addiction, risk for falls. Case discussed with Dr Ng whom agrees. Thank you for the consultation. [place] DIS[employer]ARING OFFICER:-database searched, no information found Kingsley Ng 10/07/22 0726:Attestations Physician AttestationAgree w/findings plan:The patient was seen and examined by Ben Klein. I personally developed the care plan, which was continued by the mid-level provider. I was immediately available. at 1553 at 0755 RPT #:[id number] OF REPORTPRProgress [id number]:49:00G.[id number] able for patient jmhjKDPKPJIJOKAERG7405-29-97U36:54:11 [facility] 2022-09-18 13:35:00 [id number] fi1B6oVWMylBRaCMR0Zibt/V89VqQ hR4QFlvtCmYFzwObNFtqJCMy2UR5117-10-44O00:35:00 [facility] ([facility]ospital[facility] Progress NoteREPORT#:[id number] REPORT STATUS: SignedDATE:09/18/22 TIME: 1335 PATIENT: KARMA ROWLAND UNIT #: [id number]#: [id number] [address] AGE: 56 SEX: M ATTEND: Mj Vences [facility] AUTHOR: Meera Chavira DO * ALL edits or amendments must be made on the electronic/computer document * SubjectiveChief complaint:Edema LLE improved but still present Review of SystemsCardiovascular:Reports: edema. All systems rev neg: except as noted Objective GeneralVS/I O:Vital Signs: Date Time Temp Pulse Resp B/P [...] scale Measurement Method PATIENT WEIGHT: Weight (lb): 167Weight (oz): 12.35Weight (kg): 76.100 Medications:Active Meds + DC'd Last 24 HrsPrednisone (predniSONE) 60 MG DAILY 0600 PO Furosemide (LASIX 40 mg/4 mL INJECTION) 40 MG Q8HR IV Hydralazine HCl (APRESOLINE) 75 MG Q8HR PO Furosemide (LASIX 40 mg/4 mL INJECTION) 40 MG Q8HR IV (DC) Hydralazine HCl (APRESOLINE) 50 MG Q8HR PO (DC) Daptomycin (CUBICIN 500MG) 500 MG Q48H IV Sodium Chloride (SODIUM CHLORIDE 0.9%) 50 MLInsulin Human Lispro (HUMALOG) 10 UNIT AC SUBQ Heparin Sodium (HEPARIN 5000 UNITS/ML) 5,000 UNIT Q12HR SUBQ (DCr) Insulin Glargine (Semglee) 20 UNIT BEDTIME SUBQ Meropenem (MEROPENEM) 500 MG Q8H IV Sterile Water (WATER FOR INJECTION) 10 MLCarvedilol (COREG) 25 MG C BK DIN PO Gabapentin (NEURONTIN) 100 MG Q8HR PO Oxycodone/Acetaminophen (PERCOCET 5/325MG TAB) 2 TAB Q4H PRN PRN PO Folic Acid (FOLIC ACID) 2 MG DAILY PO Multivitamins (TAB-A-MOHAN) 1 TAB DAILY PO Furosemide (LASIX 20MG INJ) 20 MG BLOOD-DOSE BETWEEN IV (CKD) Sodium Chloride (SODIUM CHLORIDE) 10 ML ASDIR IV Pantoprazole Sodium (PROTONIX) 40 MG Q12HR IV Polyethylene Glycol (MIRALAX) 17 GM DAILY PO Sennosides (Senna Lax 8.6 MG TABLET) 8.6 MG DAILY PO Sodium Chloride (SODIUM CHLORIDE) 10 ML ASDIR PRN IV Amitriptyline HCl (ELAVIL) 25 MG BEDTIME PO Zinc Oxide (ZINC OXIDE 30 GM OINTMENT) 1 APPLIC DAILY TOPICAL Sterile Water (WATER FOR IRRIGATION) DRESSING CHANGE ASDIR PRN IRR Insulin Human Lispro (HUMALOG) 0 AC HS SUBQ Dextrose/Water (DEXTROSE 10% IN WATER) 125 ML ASDIR PRN IV (CKD) Dextrose/Water (DEXTROSE 10% IN WATER) 250 ML ASDIR PRN IV (CKD) Glucagon (GLUCAGON) 1 MG ASDIR PRN IM Lidocaine (LIDODERM) 1 PATCH DAILY TOPICAL Acetaminophen (TYLENOL) 650 MG Q6H PRN PRN PO Bisacodyl (DULCOLAX) 10 MG DAILY PRN PRN RECTAL Docusate Sodium (COLACE) 100 MG Q12H PRN PRN PO Hydralazine HCl (APRESOLINE) 10 MG Q6H PRN PRN IV Ondansetron HCl (ZOFRAN) 4 MG Q6H PRN PRN IV Physical ExamGeneral appearance: alert, awake, oriented, no acute distress, pleasant, conversational, mental status normal, no respiratory distressHead/Eyes: atraumatic, normocephalicENT: moist mucosal membranesNeck: no JVDCardiovascular: normal heart sounds, regular rate rhythmRespiratory: aerating well, clear to auscultationAbdomen: non-tender, normal bowel soundsGenitourinary: no bladder distentionExtremities: edema (1+ pitting edema to thigh), moves all, normal capillary refillMusculoskeletal: normal inspectionNeuro/DIRECTOR OPERATING ROOM: alert, oriented X 3, 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 Considered stroke alert: noSkin: dry, intactPsychiatry: normal affect, normal judgment/insight ResultsFindings/Data:Laboratory Tests 09/18 09/18 09/18 09/18 09/17 1102 [...] % (Auto) (14.0 - 32.0 %) 17.4 Lenoir % (Auto) (4.8 - 9.0 %) 6.9 Eos % (Auto) (0.3 - 3.7 %) 0.1 L Baso % (Auto) (0.0 - 2.0 %) 0.1 Neut # (Auto) (2.0 - 7.6 x10 3/uL) 7.91 H Lymph # (Auto) (1.0 - 3.8 x10 3/uL) 1.85 Lenoir # (Auto) (0.1 - 0.8 x10 3/uL) 0.73 Eos # (Auto) (0.0 - 0.2 x10 3/uL) 0.01 Baso # (Auto) (0.0 - 0.2 x10 3/uL) 0.01 Abs Immat Gran (auto) (0.00 - 0.03 x10 3/uL) 0.10 H Add Manual Diff NO Immature Gran % (0.0 - 2.0 %) 0.9 Nucleated RBC % (0 - 0 %) 0.0 Nucleated RBCs # (Man) (0.0 - 0.1 x10 3/uL) 0.00 Diagnosis, Assessment PlanConsultants: cardiology, endocrinology, hospitalist, infectious disease, podiatry Free Text DxA P NotesFree text DxA P notes:Gangrene of right foot s/p Below- knee amputation Prostate abscessMRSA bacteremiaHx of Diabetes, Diabetic neuropathyHTNAKI PLANS: Continue with PT/OT per primary Wound care and Abx as per IDHepain PPXIV ironBP continues to be elevated, Hydralazine increased to 75 mg TID, cont Metoprololto 25 mg BIDBS better but likely to increase with re-initiation of steroids x3 days started by Nephrology for AIN - Endo adjusting insulinpain controlCr at 2.2, Nephrology following, re-started Prednisone 60 mg for 3 daysLasix x 3 more doses for edemaHgb stabilized. continue to monitor at 1338 [facility] #:[id number] OF REPORTPRProgress [id number]:35:00G.[id number] able for patient jxdkLQBFSUWKSOFTWU9657-89-16F29:38:21 [facility] 2022-09-18 11:41:00 [id number] b5ueL0KiwlIIJB8dw6/Hk0NfcFHob if9s8C8cP/ftWFaWMH8gWB7Q6WU2794-77-57X46:41:00 [facility] ([facility])Rehab Progress NoteREPORT#:[id number] REPORT STATUS: SignedDATE:09/18/22 TIME: 1141 PATIENT: KARMA ROWLAND UNIT #: [id number]#: [id number] [address] AGE: 56 SEX: M ATTEND: Mj Vences AUTHOR: Mj Vences MD * ALL edits or amendments must be made on the electronic/computer document * SubjectiveChief complaint:Rehab follow-upFeels good todayBKA site with bleedingEdema slowly improvingSlightly elevated blood pressureEating 75-100% at bedside+ BMDenies DICKENS/N/V/D/CP14 systems reviewed and neg. except that above.History of present illness:56 yo HAM with long h/o DM, and HTN who was admitted for fever, flulike symptomsand altered mental status on 08/18. He was doing well until about 3 days prior toadmission when he noted blister to have formed on the dorsum of his foot. His foot started progressively getting more swollen and the blisters started enlarging and extending to his lateral foot and ankle. He started feeling weak and nauseated. He was noted to have altered mentation and was brought to our ER.He was noted to be in DKA with Blood sugars greater than 600. He was seen by podiatry and surgery for BLE wounds and infection. He was treated in ICU for sepsis and DKA. He underwent incisional and excisional debridement of right footand right ankle by podiatry. Patient also found to have prostate abscess underwent transrectal ultrasound aspiration of abscess and transurethral resection of prostate and unroofing of abscess by urology Dr. Du. Endocrinology treated the DKA and blood sugars much improved. Patient's right foot was not salvageable and patient underwent right BKA by Dr. LEROY on 08/28. Patient blood cultures showed MRSA. Patient continued on antibiotics as per ID. MRI of the pelvis and foot completed. Patient required multiple PRBCs for anemia. Patient was found to have a possible small hematoma of the left calf onultrasound. He complains of pain and swelling of the left ankle. Patient hemodynamically stable and plans are to be transferred to stepdown unit. He is on heparin subcu for VTE. After surgery he is now being mobilized by PT and OT.He is wearing a maxine-tech orthotic for right knee/BKA protection. Prior to admission the patient was independent living in a single-story house with his spouse with a few steps up to front and back door. 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 is at bedside. Patient denies nausea, vomiting, fever, chills, chest pain, shortness of breath with dizziness. He is requiring IV Dilaudid for pain control. Mental status back to baseline. Pt is progressing slowly with therapy d/t weakness and pain, self care deficit, decreased endurance and balance, and decreased functional mobility. Pt requiring acute inpt rehab for multidisciplinary team of nursing, therapy, and physicians. Pt iswilling and able to partici- kathleen in 3 hr/day inpt rehab to d/c home safely. Pt's prior level of function was independent. Objective GeneralVS:Vital Signs: Date Time Temp Pulse Resp B/P B/P Pulse O2 O2 Flow FiO2 Mean Ox Delivery Rate 09/18 0649 98.1 85 18 169/85 112.9 98 Room air 09/18 0524 79 14 169/88 114.7 98 09/18 0022 97.9 81 16 153/82 105.7 98 Room air 09/17 1837 97.7 90 16 178/86 116.7 98 Room air PATIENT WEIGHT: Weight (lb): 167Weight (oz): 12.35Weight (kg): 76.100 Medications:Active Meds + DC'd Last 24 HrsPrednisone (predniSONE) 60 MG DAILY 0600 PO Furosemide (LASIX 40 mg/4 mL INJECTION) 40 MG Q8HR IV Hydralazine HCl (APRESOLINE) 75 MG Q8HR PO Furosemide (LASIX 40 mg/4 mL INJECTION) 40 MG Q8HR IV (DC) Hydralazine HCl (APRESOLINE) 50 MG Q8HR PO (DC) Daptomycin (CUBICIN 500MG) 500 MG Q48H IV Sodium Chloride (SODIUM CHLORIDE 0.9%) 50 MLInsulin Human Lispro (HUMALOG) 10 UNIT AC SUBQ Heparin Sodium (HEPARIN 5000 UNITS/ML) 5,000 UNIT Q12HR SUBQ Insulin Glargine (Semglee) 20 UNIT BEDTIME SUBQ Meropenem (MEROPENEM) 500 MG Q8H IV Sterile Water (WATER FOR INJECTION) 10 MLCarvedilol (COREG) 25 MG C BK DIN PO Gabapentin (NEURONTIN) 100 MG Q8HR PO Oxycodone/Acetaminophen (PERCOCET 5/325MG TAB) 2 TAB Q4H PRN PRN PO Folic Acid (FOLIC ACID) 2 MG DAILY PO Multivitamins (TAB-A-MOHAN) 1 TAB DAILY PO Furosemide (LASIX 20MG INJ) 20 MG BLOOD-DOSE BETWEEN IV (CKD) Sodium Chloride (SODIUM CHLORIDE) 10 ML ASDIR IV Pantoprazole Sodium (PROTONIX) 40 MG Q12HR IV Polyethylene Glycol (MIRALAX) 17 GM DAILY PO Sennosides (Senna Lax 8.6 MG TABLET) 8.6 MG DAILY PO Sodium Chloride (SODIUM CHLORIDE) 10 ML ASDIR PRN IV Amitriptyline HCl (ELAVIL) 25 MG BEDTIME PO Zinc Oxide (ZINC OXIDE 30 GM OINTMENT) 1 APPLIC DAILY TOPICAL Sterile Water (WATER FOR IRRIGATION) DRESSING CHANGE ASDIR PRN IRR Insulin Human Lispro (HUMALOG) 0 AC HS SUBQ Dextrose/Water (DEXTROSE 10% IN WATER) 125 ML ASDIR PRN IV (CKD) Dextrose/Water (DEXTROSE 10% IN WATER) 250 ML ASDIR PRN IV (CKD) Glucagon (GLUCAGON) 1 MG ASDIR PRN IM Lidocaine (LIDODERM) 1 PATCH DAILY TOPICAL Acetaminophen (TYLENOL) 650 MG Q6H PRN PRN PO Bisacodyl (DULCOLAX) 10 MG DAILY PRN PRN RECTAL Docusate Sodium (COLACE) 100 MG Q12H PRN PRN PO Hydralazine HCl (APRESOLINE) 10 MG Q6H PRN PRN IV Ondansetron HCl (ZOFRAN) 4 MG Q6H PRN PRN IV Physical ExamGeneral appearance: alert, awake, no acute distressPsych: alert, normal affect, oriented x 3HEENT: anicteric, sclera clearNeck: supple, no JVDCardiovascular: S1/S2, no murmurRespiratory: aerating well, clear bilaterallyAbdomen: bowel sounds present, non-distended, soft, non-tenderSkin: no rash, R BKA HEALING. L ankle/foot wrapped with kerlixMusculoskeletal - general: Musculoskeletal - general: swelling (LLE, calve NT, homans neg), BUE 5/5, LLE4/5, R hip 3-Neuro/DIRECTOR OPERATING ROOM: alert, oriented X 3, CNII-XII intact ResultsFindings/Data:Laboratory Tests: 09/18 09/18 09/18 09/18 1102 0906 [...] % (Auto) (14.0 - 32.0 %) 17.4 [place] % (Auto) (4.8 - 9.0 %) 6.9 Eos % (Auto) (0.3 - 3.7 %) 0.1 L Baso % (Auto) (0.0 - 2.0 %) 0.1 Neut # (Auto) (2.0 - 7.6 x10 3/uL) 7.91 H Lymph # (Auto) (1.0 - 3.8 x10 3/uL) 1.85 [place] # (Auto) (0.1 - 0.8 x10 3/uL) 0.73 Eos # (Auto) (0.0 - 0.2 x10 3/uL) 0.01 Baso # (Auto) (0.0 - 0.2 x10 3/uL) 0.01 Abs Immat Gran (auto) (0.00 - 0.03 x10 3/uL) 0.10 H Add Manual Diff NO Immature Gran % (0.0 - 2.0 %) 0.9 Nucleated RBC % (0 - 0 %) 0.0 Nucleated RBCs # (Man) (0.0 - 0.1 x10 3/uL) 0.00 09/17 09/17 1904 1554 Chemistry POC Glucose (70 - 110 MG/DL) 160 H 75 Radiology data:Recent Impressions:RADIOLOGY - XR CHEST 1 V 09/12 1418 Report Impression - Status: SIGNED Entered: 09/12/20222028 IMPRESSION: Worsening opacities in the right mid and lower lung reyes. Mildly improved left retrocardiac opacities. Impression By: [email or web address] - Abel Browne M.D. Diagnosis, Assessment PlanFree Text A P:Assessment:Severe Gas gangrene right foot and right ankle associated with osteomyelitis andnecrotizing fasciitisS/p surgical debridement and washout4/6: S/p right MIGUEL ANGEL-Dr. Friedmanificant impairment in self-care, ADLs and functional mobilityImpaired mobility and gaitAcute postoperative pain right BKADiabetic polyneuropathyDKA, DM 2, poorly controlled, A1c greater than 14PADMRSA bacteremia/sepsis-treated on acuteAKISevere hyponatremia-resolvedHTNAcute on chronic anemia requiring multiple transfusions, possible GI bleedLeft calf hematomaEdema and clinical arthritis left ankleEarly decubitus to left heel/DTI dorsal left midfootProstatic abscess 08/26: S/p transrectal ultrasound aspiration of abscess and transurethral resection of prostate and unroofing of abscess09/12: Echo: EF 55-59%, grade 1 diastolic dysfunction09/02: JIMENA negative for vegetationMRSA OF NARES09/08:s/p EGD and colonoscopy. EGD showed mild gastritis. Colonoscopy showed rectal polyp that was resected by snare (tubular adenoma)-repeat colonoscopy in 5 years Plan:-PLOF: Independent with transfers and gait-Amputee rehab program-Continue PT and OT-15/12 rehabilitation nursing care.-Case management for safe discharge planning.-Decubitus prevention-Early decubitus to left heel/DTI dorsal left midfoot-zinc oxide to the foot, foam, offloading, podiatry managing-DVT prophylaxis-subcutaneous heparin-heparin stopped due to bleeding at the BKAsite-SCD to left leg-Strict fall and safety precautions-Work on bed mobility, transfer training, ADLs, pre-gait and gait exercises-Increase endurance and strength-Monitor pain with therapies-OOB to chair-Monitor p.o. intake and nutrition, albumin 1.3, prealbumin less than 5, dietaryconsultation, protein supplements to promote addvxzb-Yoyxtqqy-V6f 14, tight glycemia control- endocrine on board, insulin adjustments-Endocrinology, ID, podiatry, cardiology, IM consulted-Pain management adjusting pain medications-Anemia, patient required multiple units of PRBCs on acute, FOBT positive-IV Protonix-consult GI-serial H H-no evidence of gross bleeding-discussed with Dr. TrinidadLegctoom-Xmipqeezmtfw-pdwmjvywc hflklfxs-ILG-tmhmhm-CW Senokot and MiraLAX, DSP-MRSA OF NARES on Bactroban protocol-LLE edema-venous Doppler with complex heterogeneous hypoechoic fluid collectionin the left calf region measuring 8.4, 2.8, 2.5 cm suggestive of hematoma. On low-dose Lasix. Joan wrap LLE-LE edema could be related to hypoalbuminemia leading to third spacing-edema improving-Generalized edema-some shortness of breath and abdominal distention-cardiology gave a dose of IV Lasix-monitor urine output, daily weights-SOB resolved-09/05-venous Doppler of LLE-negative for DVT-Joan wrap dressing and tznuhwqqd-Etuzsz-ybjajqkjlz 8.3, 7.7, 8.2, 7.6 transfused 2 units of PRBC on 09/05-09/08: s/p EGD and colonoscopy. EGD showed mild gastritis. Colonoscopy showed rectal polyp that was resected by snare. Anemia likely secondary to chronic kidney disease. Consult renal.-Pathology of polyp came back as tubular adenoma. recommend repeating colonoscopy in 5 years as per GI-Consider video capsule endoscopy as outpt if evidence of dropping H/H-Renal ultrasound negative-09/18/2022 laboratory this morning showed sodium 138, potassium 4.1, CO2 21, BUN66, creatinine 2.2 continues to improve, urine output 2.7 L, hemoglobin 7.6, platelet 341, blood count 10.6, will give Lasix 40 mg IV every 8 for 3 doses, start prednisone 60 mg p.o. daily for 3 days, increase hydralazine to 75 mg p.o.3 times daily-as per renal-on Merrem and Daptomycin til 09/24 as per ID-Lasix as per nephrology-Completed Ukvp-Gskyya-Xaaay LLE swelling (not new) and low albumin. may benefit from albumin infusion+ Dwhoe-XYF-ehcwgdmau opacities in the right mid and lower lung field. Improved left retrocardiac opacities-BNP 297-09/12: Echo-EF 55-60%, indeterminate diastolic function parameters as per cardio-Blood pressure remains elevated, likely related to steroid therapy. Hydralazine increased to 75 mg 3 times daily. Nephrology managing diuretic therapy. Continue monitor renal function and electrolytes. Improvement in lowerextremity swelling. Patient denies chest pain or shortness of breath. -Car transfer training 09/23-Creatinine continues to improve-discussed with patient and about renal issues are improving-Advance therapies as tolerated-discussed treatment plan with patient and -Patient progressing towards all goals and continues to work on upper and lower extremity strengthening, balance and family training. Therapist working with nurse to monitor drainage from BKA and continue wound care.-Right BOG-znamcei-ugfglcqd resolved, dressings changed today-Fresh blood, no odor-no signs of infection-Rob intact-DC heparin subcu monitor-continue MAXINE-TECH-if bleeding does not improve will get culture and Dr. Leroy (surgeon) to evaluate. Hemoglobin 7.6, repeat a.m. Progress: PT WORKED ON TXFR TRNG FROM MULTIPLE SURFACES SQUAT PIVOT W/CGA TO LT/RT,STAND PIVOT W/RW AND MIN/MOD A FOR RW POSITIONING,BALANCE AND SAFETY W/WC LOCKING/POSITIONING FROM BED<>WC AND WC TO MAT. PM RPlease see team note.Plan and goals discussed with the patient. I agree with the teams findingELOS- [09/24] on IV antibiotics until C-Home with -Home healthDME-bedside commode, sliding board, wheelchair, drop arm bedside commode Total time 33 minutes greater than 50% of the time spent examining patient, discussing with patient about BKA incision, improvement in renal function, on steroids, medical issues, anemia, amputee rehab, discharge plans, rehab plan of care, goals, therapies, progress, labs, medications. EMR and MAR is reviewed. All questions answeredOrders: Procedure Date/time Status Sequential Compression Device 09/18 1519 Active OT EXERCISE 15MIN 09/18 UNK Complete OT ADL 09/18 UNK Complete Consultants: cardiology, endocrinology, hospitalist, infectious disease, podiatryRehab attestation:Face to face exam completed. Treatment plan discussed with patient. Meets continued stay criteria. Agree with interdisciplinary treatment plan. at 1521 [facility] #:[id number] OF REPORTPRProgress [id number]:41:00G.[id number] able for patient corcTQPBXVEZOKIACF3118-90-78S77:21:46 HCACL 2022-09-18 10:45:00 [id number] xEPApzh2N6dZLXBW1sFZnYrpnq90753-98-36Y51:45:00 [facility] ([facility])Cardiology Progress NoteREPORT#:[id number] REPORT STATUS: SignedDATE:09/18/22 TIME: 1045 PATIENT: KARMA ROWLAND UNIT #: [id number] [address] [birth year] AGE: 56 SEX: M ATTEND: Mj Vences [facility] AUTHOR: Rohit Benitez RESEARCH MANUFACTURING OPERATOR * ALL edits or amendments must be made on the electronic/computer document * Rohit Benitez 09/18/22 1045:SubjectiveChief complaint:weakness Free Text Subj NotesFree Text Subj Notes:Patient seen and evaluated. Doing well, denies chest pain or shortness of breath. Objective GeneralVS/I O:24 hour I O ending at 0700: 09/18 [...] 98 Room air PATIENT WEIGHT: Weight (lb): 167Weight (oz): 12.35Weight (kg): 76.100 Medications:Active Meds + DC'd Last 24 HrsPrednisone (predniSONE) 60 MG DAILY 0600 PO Furosemide (LASIX 40 mg/4 mL INJECTION) 40 MG Q8HR IV Hydralazine HCl (APRESOLINE) 75 MG Q8HR PO Furosemide (LASIX 40 mg/4 mL INJECTION) 40 MG Q8HR IV (DC) Hydralazine HCl (APRESOLINE) 50 MG Q8HR PO (DC) Daptomycin (CUBICIN 500MG) 500 MG Q48H IV Sodium Chloride (SODIUM CHLORIDE 0.9%) 50 MLInsulin Human Lispro (HUMALOG) 10 UNIT AC SUBQ Heparin Sodium (HEPARIN 5000 UNITS/ML) 5,000 UNIT Q12HR SUBQ Insulin Glargine (Semglee) 20 UNIT BEDTIME SUBQ Meropenem (MEROPENEM) 500 MG Q8H IV Sterile Water (WATER FOR INJECTION) 10 MLCarvedilol (COREG) 25 MG C BK DIN PO Gabapentin (NEURONTIN) 100 MG Q8HR PO Oxycodone/Acetaminophen (PERCOCET 5/325MG TAB) 2 TAB Q4H PRN PRN PO Folic Acid (FOLIC ACID) 2 MG DAILY PO Multivitamins (TAB-A-MOHAN) 1 TAB DAILY PO Furosemide (LASIX 20MG INJ) 20 MG BLOOD-DOSE BETWEEN IV (CKD) Sodium Chloride (SODIUM CHLORIDE) 10 ML ASDIR IV Pantoprazole Sodium (PROTONIX) 40 MG Q12HR IV Polyethylene Glycol (MIRALAX) 17 GM DAILY PO Sennosides (Senna Lax 8.6 MG TABLET) 8.6 MG DAILY PO Sodium Chloride (SODIUM CHLORIDE) 10 ML ASDIR PRN IV Amitriptyline HCl (ELAVIL) 25 MG BEDTIME PO Zinc Oxide (ZINC OXIDE 30 GM OINTMENT) 1 APPLIC DAILY TOPICAL Sterile Water (WATER FOR IRRIGATION) DRESSING CHANGE ASDIR PRN IRR Insulin Human Lispro (HUMALOG) 0 AC HS SUBQ Dextrose/Water (DEXTROSE 10% IN WATER) 125 ML ASDIR PRN IV (CKD) Dextrose/Water (DEXTROSE 10% IN WATER) 250 ML ASDIR PRN IV (CKD) Glucagon (GLUCAGON) 1 MG ASDIR PRN IM Lidocaine (LIDODERM) 1 PATCH DAILY TOPICAL Acetaminophen (TYLENOL) 650 MG Q6H PRN PRN PO Bisacodyl (DULCOLAX) 10 MG DAILY PRN PRN RECTAL Docusate Sodium (COLACE) 100 MG Q12H PRN PRN PO Hydralazine HCl (APRESOLINE) 10 MG Q6H PRN PRN IV Ondansetron HCl (ZOFRAN) 4 MG Q6H PRN PRN IV Physical ExamGeneral appearance: alert, awake, orientedNeck: no bruit/NL carotids, no JVDCardiovascular: CV assessment: regular rate and rhythm, no ectopy, no gallopRespiratory: clear to auscultation, no distressAbdomen: soft, non-tenderLower extremity: LE assessment: edema, normal temperatureNeuro/DIRECTOR OPERATING ROOM: alert, oriented X 3 Considered stroke alert: noWound/incision: Location:right bkaPsychiatry: normal affect, normal judgment/insight, normal mood ResultsFindings/Data:Laboratory Tests 09/18 09/18 09/18 09/17 09/17 0906 [...] % (Auto) (14.0 - 32.0 %) 17.4 Lenoir % (Auto) (4.8 - 9.0 %) 6.9 Eos % (Auto) (0.3 - 3.7 %) 0.1 L Baso % (Auto) (0.0 - 2.0 %) 0.1 Neut # (Auto) (2.0 - 7.6 x10 3/uL) 7.91 H Lymph # (Auto) (1.0 - 3.8 x10 3/uL) 1.85 Lenoir # (Auto) (0.1 - 0.8 x10 3/uL) 0.73 Eos # (Auto) (0.0 - 0.2 x10 3/uL) 0.01 Baso # (Auto) (0.0 - 0.2 x10 3/uL) 0.01 Abs Immat Gran (auto) (0.00 - 0.03 x10 3/uL) 0.10 H Add Manual Diff NO Immature Gran % (0.0 - 2.0 %) 0.9 Nucleated RBC % (0 - 0 %) 0.0 Nucleated RBCs # (Man) (0.0 - 0.1 x10 3/uL) 0.00 Laboratory Tests 09/18 0505 Chemistry Magnesium (1.80 - 2.40 mg/dL) 1.83 Diagnosis, Assessment PlanConsultants: cardiology, endocrinology, hospitalist, infectious disease, podiatry Free Text DxA P NotesFree Text DxA P Notes:Impression: 1. Debility2. Infected right foot status post BKA3. Bacteremia4. Diabetes5. Hypertension 6. Anemia7. Acute Diastolic CHF 07/2022: Echocardiogram with normal LVEF, grade 1 diastolic dysfunction, mildly dilated LA, and no significant valvular abnormalities Recommendation: Patient initially presented with DKA and sepsis. Diagnosed with right foot infection, underwent I D, now status post BKA. Patient had persistent bacteremia with MRSA, underwent JIMENA with negative findings of endocarditis. Patient now transferred to rehab for physical therapy. Known cardiac history ofhypertension and hyperlipidemia. Vital signs stable. Echocardiogram with normal LVEF, grade 1 diastolic dysfunction, mildly dilated LA, and no significant valvular abnormalities. Continue to monitor blood pressure trend. Continue wound care and IV antibiotic therapy. Continue PT/OT. Supportive care. 09/04: Patient complaining of shortness of breath, abdominal distention and lowerextremity edema. Renal function and electrolytes stable. Will give one-time dose of IV Lasix 40 mg. Blood pressure stable. Pending abdominal x-ray. Monitor intake and output. Check BMP in the morning. Supportive care. Plan ofcare discussed with patient, RN and Dr. Parham. 09/05: Patient responded well to IV Lasix, good urine output and improvement in shortness of breath. Chest x-ray ordered. Currently on Lasix 20 mg p.o. daily. Continue monitor renal function and electrolytes. Pending lower extremity Doppler for lower extremity edema. Continue PT/OT. Supportive care. Plan of care discussed with patient, RN and Dr. Parham. 09/08: Blood pressure has been elevated, started on Coreg 3.125 mg twice daily. Continue monitor blood pressure trend and adjust medication as needed. Still having left lower extremity edema, venous Doppler negative for DVT. continue gentle diuresis with Lasix 20 mg p.o. daily. Recommend Joan wrap. Patient remains anemic, plan for EGD/colonoscopy today. Supportive care. Plan of care discussed with patient, family, RN and Dr. Parham. 09/09: Patient doing well status post EGD/colonoscopy, negative findings for GI bleed. Blood pressure improving, increased on Coreg to 12.5 mg twice daily. Elevated creatinine noted, nephrology following. No new cardiac complaint. Continue wound care. Continue PT/OT. Supportive care. Plan of care discussed with patient, RN and Dr. Parham. 09/10: Blood pressure remained stable on current regimen of Coreg. Patient continue to have left lower extremity edema. Currently on Lasix 20 mg daily. Creatinine 1.9 today, continue to monitor. Patient's albumin level was 1.3, it is possible that patient's lower extremity edema could be related to hypoalbuminemia leading to third spacing. Continue PT/OT. Supportive care. Plan of care discussed with patient, RN and Dr. Parham. 09/11: Patient doing well from cardiac standpoint. Blood pressure well controlled. Improvement in lower extremity edema with elevating leg while in bed. Creatinine 2.0 today. Denies shortness of breath. Will hold diuretic for now and monitor renal function. Supportive care. Plan of care discussed with patient, RN and Dr. Parham. 09/12: Creatinine remains elevated at 2.4 today, antibiotic regimen also being adjusted. Patient still with lower extremity edema and rales on physical examination. Will check chest x-ray and limited echocardiogram for further evaluation. Check BNP. Continue hold diuretic for now. Supportive care. Planof care discussed with patient, RN and Dr. Parham. 09/15: Repeat echocardiogram showed LVEF of 55 to 60%, no regional wall motion abnormalities, left ventricular diastolic function parameters are indeterminate,mildly dilated LA, and no pericardial effusion. BNP elevated 297. Continue to hold diuretic due to Elevated creatinine, nephrology following and may consider renal biopsy. Continue to monitor fluid volume status. Overall improvement in lower extremity with Joan wrap. Continue physical therapy. Supportive care. Plan of care discussed with patient, RN and Dr. Parham. 09/16: Blood pressure slightly elevated, started on hydralazine 25 mg every 8 hours. Continue carvedilol monitor blood pressure trend. Cr. 2.7 today, continue monitor. Tolerating physical therapy. Euvolemic by physical examination. Supportive care. Plan of care discussed with patient, RN and Dr. Parham. 09/17: Blood pressure remains elevated, likely related to steroid therapy. Hydralazine increased to 50 mg 3 times daily. Nephrology managing diuretic therapy. Continue monitor renal function and electrolytes. Improvement in lower extremity swelling. Patient denies chest pain or shortness of breath. Tolerating PT/OT. Supportive care. Plan of care discussed with patient, RN andDr. Parham. 09/18: Blood pressure remains elevated due to steroid therapy. Continue monitor blood pressure trend, hydralazine increased to 75 mg 3 times daily. Responding to diuretic regimen with Lasix, good urine output. Creatinine improving, 2.2 today. Continue to monitor fluid volume status. Continue physical therapy. Supportive care. Plan of care discussed with patient, RN and Dr. Parham. Napoleon Parham 09/19/22 0915:Diagnosis, Assessment PlanAdditional comments:Patient was seen and examined at bedside, agree with above assessment and plan as documented by nurse practitioner. Will follow. at 1946 at 0916 [facility] #:[id number] OF REPORTPRProgress [id number]:45:00G.[id number] able for patient mhkrPGRGOVLWYVMUSG6547-60-13A03:46:49 [facility] 2022-09-18 10:37:00 [id number] 5w3+[id number] 2MPLxlySEFH8MY5gKiA87/Ft0n92881-05-70E23:37:00 [facility] ([facility])Infectious Dis. Progress NoteREPORT#:[id number] REPORT STATUS: SignedDATE:09/18/22 TIME: 1037 PATIENT: KARMA ROWLAND UNIT #: [id number]#: [id number] [address] [birth year] AGE: 56 SEX: M ATTEND: Mj Vences [facility] AUTHOR: iLnda Anderson MD * ALL edits or amendments must be made on the electronic/computer document * SubjectiveHPI:PT is a 56yr old male with history of diabetes mellitus type 2, hypertension whowas admitted with altered mental status and right-sided foot infection. According to him, he noticed a blister on his right foot around 3 days prior to presentation. His foot got progressively more swollen and erythema extended proximally to his lateral foot and ankle. CT abdomen and pelvis with contrast is concerning for possible prostate abscess. CT of lower extremity without contrast shows extensive soft tissue edema with mottled gas in the subcutaneous and intramuscular compartments of the foot, compatible with gas-forming infection. Patient's blood cultures have come back positive for MRSA in 2 out of 2 sets. PT has had persistent (+)Ve cx for MRSA 08/18- 08/22. He underwent a debridement of his foot on 08/19 and cx grew MRSA. PT was started on Vancomycin and clindamycin on 08/18. His MRI showed a prostate abscess. 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 Pt underwent a transrectal aspiration and unroofing of prostate abscess 08/26 and cx grew Citrobacter, Enterococcus, MRSA. He also hada BKA of right leg 08/28. JIMENA done 09/02. Pt was transferred to Rehab on 09/02. Patient reports:No: cough, diarrhea, fever, headache, nausea, vomiting. Comments:Pt states the swelling in his legs has gone down Portions of this section were scribed by Jill Quintero on 09/18/22 at 2035 Objective GeneralVS/I O:Vital SignsDate Temp Pulse Resp B/P B/P Mean Pulse Ox JxS217/-09/18 97.7-98.1 79-90 14-18 153-178/82-88 105.7-116.7 98 Last [...] scale Measurement Method PATIENT WEIGHT: Weight (lb): 167Weight (oz): 12.35Weight (kg): 76.100 Antibiotic start date:Antibiotic: vancomycinStart Date:09/03-09/12Antibiotic: daptomycin Start Date:08/28-09/03, restarted on 09/12 Antibiotic: cefepime Start Date:09/01-09/12 Antibiotic: merremStart Date:08/27-09/01, 09/12- Physical ExamGeneral appearance: alert, awake, orientedHead/Eyes: atraumatic, clear cornea, EOMI, normal conjunctiva/sclera, normal eyelids/periorb, normocephalic, PERRLENT: moist mucosal membranes, normal dentitionNeck: full range of motionCardiovascular: normal heart sounds, regular rate rhythmRespiratory: clear to auscultation, aerating wellAbdomen: non-tender, normal bowel sounds, softExtremities: edema (in left leg and thigh improved), moves all, right BKA Left foot wound +dressing in placeNeuro/DIRECTOR OPERATING ROOM: alert, oriented X 3 Considered stroke alert: noSkin: dry, intact ResultsFindings/Data:Laboratory Tests 09/18 09/18 09/18 09/17 09/17 0906 [...] % (Auto) (14.0 - 32.0 %) 17.4 Lenoir % (Auto) (4.8 - 9.0 %) 6.9 Eos % (Auto) (0.3 - 3.7 %) 0.1 L Baso % (Auto) (0.0 - 2.0 %) 0.1 Neut # (Auto) (2.0 - 7.6 x10 3/uL) 7.91 H Lymph # (Auto) (1.0 - 3.8 x10 3/uL) 1.85 Lenoir # (Auto) (0.1 - 0.8 x10 3/uL) 0.73 Eos # (Auto) (0.0 - 0.2 x10 3/uL) 0.01 Baso # (Auto) (0.0 - 0.2 x10 3/uL) 0.01 Abs Immat Gran (auto) (0.00 - 0.03 x10 3/uL) 0.10 H Add Manual Diff NO Immature Gran % (0.0 - 2.0 %) 0.9 Nucleated RBC % (0 - 0 %) 0.0 Nucleated RBCs # (Man) (0.0 - 0.1 x10 3/uL) 0.00 Laboratory Tests: 09/18 09/18 09/18 09/17 0906 0540 0505 1904Chemistry Sodium (134 - 147 mEq/L) 138 Potassium [...] MG/DL) 4.4 Magnesium (1.80 - 2.40 mg/dL) 1.83Hematology WBC (4.5 - 11.0 x10 3/uL) 10.6 [...] % (Auto) (14.0 - 32.0 %) 17.4 Lenoir % (Auto) (4.8 - 9.0 %) 6.9 Eos % (Auto) (0.3 - 3.7 %) 0.1 L Baso % (Auto) (0.0 - 2.0 %) 0.1 Neut # (Auto) (2.0 - 7.6 x10 3/uL) 7.91 H Lymph # (Auto) (1.0 - 3.8 x10 3/uL) 1.85 Lenoir # (Auto) (0.1 - 0.8 x10 3/uL) 0.73 Eos # (Auto) (0.0 - 0.2 x10 3/uL) 0.01 Baso # (Auto) (0.0 - 0.2 x10 3/uL) 0.01 Abs Immat Gran (auto) (0.00 - 0.03 x10 3/uL) 0.10 H Add Manual Diff NO Immature Gran % (0.0 - 2.0 %) 0.9 Nucleated RBC % (0 - 0 %) 0.0 Nucleated RBCs # (Man) (0.0 - 0.1 x10 3/uL) 0.00 09/17 09/17 09/17 09/17 09/17 1554 1027 [...] (Auto) (14.0 - 32.0 %) 10.2 L Lenoir % (Auto) (4.8 - 9.0 %) 2.9 L Eos % (Auto) (0.3 - 3.7 %) 0.0 L Baso % (Auto) (0.0 - 2.0 %) 0.1 Neut # (Auto) (2.0 - 7.6 x10 3/uL) 7.58 Lymph # (Auto) (1.0 - 3.8 x10 3/uL) 0.91 L Lenoir # (Auto) (0.1 - 0.8 x10 3/uL) 0.26 Eos # (Auto) (0.0 - 0.2 x10 3/uL) 0.00 Baso # (Auto) (0.0 - 0.2 x10 3/uL) 0.01 Abs Immat Gran (auto) (0.00 - 0.03 x10 3/uL) 0.14 H Add Manual Diff NO Immature Gran % (0.0 - 2.0 %) 1.6 Nucleated RBC % (0 - 0 %) 0.0 Nucleated RBCs # (Man) (0.0 - 0.1 x10 3/uL) 0.00 09/16 09/16 1441 1110 Chemistry POC Glucose (70 - 110 MG/DL) 60 L 148 H Medication(s) Ordered:Anti-Infective Agents Sig/Jan Start time Last Medication Dose [...] Sodium 5,000 UNIT Q12HR 09/15 2100 AC 09/18 SUBQ 10/15 205 0934 Cardiovascular Drugs Sig/Jan Start time Last [...] TAB Q4H PRN PRN 09/10 0715 AC 09/18 Acetaminophen PO 10/10 1300 0931 Amitriptyline HCl 25 MG BEDTIME 09/04 2100 AC 09/17 PO 10/04 205 2107 Acetaminophen 650 [...] 10 ML ASDIR PRN 09/05 0630 AC 09/15 IV 10/05 0629 0912 Sterile Water [...] Sodium 40 MG Q12HR 09/05 0900 AC 09/18 IV 10/05 0859 0935 Polyethylene Glycol 17 GM DAILY 09/05 0900 AC 09/17 PO 10/05 0859 0901 Sennosides 8.6 MG DAILY 09/05 0900 AC 09/18 PO 10/05 0859 0934 [...] Lispro 10 UNIT AC 09/16 0730 AC 09/18 SUBQ 10/16 0729 0932 Insulin Glargine 20 UNIT BEDTIME 09/15 2100 AC 09/17 SUBQ 10/15 205 2108 Insulin Human Lispro 0 AC HS 09/03 1630 AC 09/17 SUBQ 10/03 1629 1233 Glucagon 1 MG [...] Acid 2 MG DAILY 09/09 899 AC 09/18 PO 10/09 0859 0935 Multivitamins 1 TAB DAILY 09/09 899 AC 09/18 PO 10/09 0859 0952 Dose Instructions:(1)Sterile Water: DRESSING CHANGE Portions of this section were scribed by Jill Quintero on 09/18/22 at 2036 Treatment Prophylaxis Treatment ProphylaxisLines: PICCCVC/PICC documentation:The data below has been imported from nursing documentation. Any exceptions have been noted below under Provider comments. CVC/PICC insertion date/time: PICC single lumen Arm upper Right Inserted 09/02/22 1720 Provider comments on imported nursing data: [] Portions of this section were scribed by Jill Quintero on 09/18/22 at 1037 Diagnosis, Assessment PlanFree Text A P:*MRSA bacteremia-Initial blood cultures from 08/18/2022 positive for MRSA in 2 out of 2 sets.-Repeat blood cultures 08/21/2022 are already positive for MRSA in 2 out of 2 sets, suggesting persistent high-grade bacteremia.-TTE 08/18/2022 negative for any obvious vegetations.-08/28 neg-JIMENA 09/02 neg*Prostatic abscess-s/p transrectal aspiration and unroofing on 08/26-cx MRSA, citrobacter (r-cefazolin) Enterococcus raffinosus (S-amp,pcn, vancomycin), bacteriodes*ERIKA-nephrology following; worsening*Hyponatremia*Diabetic neuropathy*Diabetes mellitus type 2*Hypertension*anemia 09/08-cont on Cefepime and vancomycin til 5/3 for treatment of Prostate abscess-follow esr and crp-EGD today 09/09-on cefepime and vancomycin til 5/3 for treatment of prostate abscess 09/10on cefepime and vancomycin til 5/3 for treatment of prostate abscesscheck esr and crp in am 09/11on cefepime and vancomycin til /3 for treatment of prostate abscess; if pt is discharge before 09/24 can change to oral abx 09/12on cefepime and vancomycin til /3 for treatment of prostate abscess; will change to Merrem 500mg Iv Q12hrs and Daptomycin as creat is worsening 09/15on Merrem and Daptomycin til 5/3creat still elevated: nephrology following 09/16On Merrem and Daptomycin til 5/3monitor creat. ; improving; nephrology followingfollow esr and crp 09/17On Merrem and Daptomycin til 5/3monitor creat. ; improving; nephrology followingfollow esr and crpremains afebrile; WBC normal 09/18no changes overnighton Merrem and Dapotomycin til 5/3creat improvingswelling improvedConsultants: cardiology, endocrinology, hospitalist, infectious disease, podiatry Portions of this section were scribed by Jill Quintero on 09/18/22 at 2036 at 2300 RPT #:[id number] OF REPORTPRProgress [id number]:37:00G.[id number] able for patient okwlDHLEZMXYYACSNW8391-36-35B48:00:23 [facility] 2022-09-18 07:55:00 [id number]+U UqLEMxXHb0T5+ToXCQ5R+ZEMm+pTj SoHp7HKS+77cj2S7StkUjF1XilM7743-19-18K78:55:00 [facility] ([facility])Nephrology Progress NoteREPORT#:[id number] REPORT STATUS: SignedDATE:09/18/22 TIME: 0755 PATIENT: KARMA ROWLAND UNIT #: [id number]#: [id number] [address] [birth year] AGE: 56 SEX: M ATTEND: Mj Vences AUTHOR: Barrera Ramírez MD * ALL edits or amendments must be made on the electronic/computer document * SubjectiveChief complaint:Infected footHPI:Patient seen and evaluated on 09/09/2022, note started, records reviewed and orders placed on 09/08/2022, 56-year-old male with history of diabetes mellitus type 2, hypertension and peripheral vascular disease who was initially admitted to acute care with altered mental status and right foot infection/gangrene, 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 Patient had persistent anemia requiring blood transfusion. His fecal occult blood was positive and his creatinine was 1.2 and increased to 1.4 today, laboratories today showed hemoglobin 8.5, platelet 231, blood count 9.1, sodium 135, potassium 4.6, CO2 22, BUN 22, creatinine 1.4. Renal consult was requested for evaluation management of elevated BUN and creatinine and if his decreased GFR iscontributing to his anemia. Patient reports:Yes: complaints. Comments:Patient seen and evaluated, HPI no change from initial, feels okay. Review of SystemsConstitutional:Reports: fatigue. Denies: chills, fever. Skin:Reports: swelling. Denies: rash. Allergy/Immun:Denies: hives, itching. Eyes:Denies: redness, discharge. ENT:Denies: ear drainage, ear ringing. Respiratory:Denies: hemoptysis, SOB. Cardiovascular:Denies: chest pain. Objective GeneralVS/I O:Vital Signs: Date Time Temp Pulse Resp B/P [...] scale Measurement Method PATIENT WEIGHT: Weight (lb): 167Weight (oz): 12.35Weight (kg): 76.100 MedicationsActive Meds + DC'd Last 24 HrsFurosemide (LASIX 40 mg/4 mL INJECTION) 40 MG Q8HR IV (DC) Hydralazine HCl (APRESOLINE) 50 MG Q8HR PO Furosemide (LASIX 40 mg/4 mL INJECTION) 40 MG Q8HR IV (DC) Daptomycin (CUBICIN 500MG) 500 MG Q48H IV Sodium Chloride (SODIUM CHLORIDE 0.9%) 50 MLInsulin Human Lispro (HUMALOG) 10 UNIT AC SUBQ Heparin Sodium (HEPARIN 5000 UNITS/ML) 5,000 UNIT Q12HR SUBQ Insulin Glargine (Semglee) 20 UNIT BEDTIME SUBQ Meropenem (MEROPENEM) 500 MG Q8H IV Sterile Water (WATER FOR INJECTION) 10 MLCarvedilol (COREG) 25 MG C BK DIN PO Gabapentin (NEURONTIN) 100 MG Q8HR PO Oxycodone/Acetaminophen (PERCOCET 5/325MG TAB) 2 TAB Q4H PRN PRN PO Folic Acid (FOLIC ACID) 2 MG DAILY PO Multivitamins (TAB-A-MOHAN) 1 TAB DAILY PO Furosemide (LASIX 20MG INJ) 20 MG BLOOD-DOSE BETWEEN IV (CKD) Sodium Chloride (SODIUM CHLORIDE) 10 ML ASDIR IV Pantoprazole Sodium (PROTONIX) 40 MG Q12HR IV Polyethylene Glycol (MIRALAX) 17 GM DAILY PO Sennosides (Senna Lax 8.6 MG TABLET) 8.6 MG DAILY PO Sodium Chloride (SODIUM CHLORIDE) 10 ML ASDIR PRN IV Amitriptyline HCl (ELAVIL) 25 MG BEDTIME PO Zinc Oxide (ZINC OXIDE 30 GM OINTMENT) 1 APPLIC DAILY TOPICAL Sterile Water (WATER FOR IRRIGATION) DRESSING CHANGE ASDIR PRN IRR Insulin Human Lispro (HUMALOG) 0 AC HS SUBQ Dextrose/Water (DEXTROSE 10% IN WATER) 125 ML ASDIR PRN IV (CKD) Dextrose/Water (DEXTROSE 10% IN WATER) 250 ML ASDIR PRN IV (CKD) Glucagon (GLUCAGON) 1 MG ASDIR PRN IM Lidocaine (LIDODERM) 1 PATCH DAILY TOPICAL Acetaminophen (TYLENOL) 650 MG Q6H PRN PRN PO Bisacodyl (DULCOLAX) 10 MG DAILY PRN PRN RECTAL Docusate Sodium (COLACE) 100 MG Q12H PRN PRN PO Hydralazine HCl (APRESOLINE) 10 MG Q6H PRN PRN IV Ondansetron HCl (ZOFRAN) 4 MG Q6H PRN PRN IV Physical ExamGeneral appearance: alert, no acute distressHead/eyes: atraumatic, normocephalicENT: normal noseNeck: non-tender, supple/no meningismusCardiovascular: normal heart sounds, no rubRespiratory: aerating well, symmetric expansionAbdomen: non-tender, softGenitourinary: no flank painExtremities: non-tender, no edemaMusculoskeletal: no CVA tenderness, no tendernessNeuro/DIRECTOR OPERATING ROOM: alert, 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 Considered stroke alert: noSkin: dry, intact ResultsFindings/Data:Laboratory Tests 09/18 09/18 09/17 09/17 09/17 0540 [...] 09/17 09/17 09/17 09/17 09/16 0951 0601 0951 1150 0505 Chemistry Sodium (134 - 147 mEq/L) 136 [...] MG/DL) 219 H 62 L 60 L 148 H 195 H 09/16 09/15 09/15 09/15 [...] - 32.0 %) 17.4 10.2 L 18.6 [place] % (Auto) (4.8 - 9.0 %) 6.9 2.9 L 6.7 Eos % (Auto) (0.3 - 3.7 %) 0.1 L 0.0 L 0.2 L Baso % (Auto) (0.0 - 2.0 %) 0.1 0.1 0.1 Neut # (Auto) (2.0 - 7.6 x10 3/uL) 7.91 H 7.58 6.99 Lymph # (Auto) (1.0 - 3.8 x10 3/uL) 1.85 0.91 L 1.77 [place] # (Auto) (0.1 - 0.8 x10 3/uL) 0.73 0.26 0.64 Eos # (Auto) (0.0 - 0.2 x10 3/uL) 0.01 0.00 0.02 Baso # (Auto) (0.0 - 0.2 x10 3/uL) 0.01 0.01 0.01 Abs Immat Gran (auto) (0.00 - 0.03 x10 3/uL) 0.10 H 0.14 H 0.10 H Add Manual Diff NO NO NO Immature Gran % (0.0 - 2.0 %) 0.9 1.6 1.0 Nucleated RBC % (0 - 0 %) 0.0 0.0 0.0 Nucleated RBCs # (Man) (0.0 - 0.1 x10 3/uL) 0.00 0.00 0.00 Laboratory Tests 09/16 0455 Immunology Complement C3 (82 - 167 mg/dL) 121 Complement C4 (12 - 38 mg/dL) 31 Laboratory Tests 09/15 1304 Urines Urine Color (YEL/STRAW) YELLOW Urine Appearance (CLEAR) SL CLOUDY Urine pH (5.0 - 7.0) 5.0 Ur Specific [place] (1.005 - 1.030) 1.013 Urine Protein (NEGATIVE) [...] % (Auto) (14.0 - 32.0 %) 17.4 [place] % (Auto) (4.8 - 9.0 %) 6.9 Eos % (Auto) (0.3 - 3.7 %) 0.1 L Baso % (Auto) (0.0 - 2.0 %) 0.1 Neut # (Auto) (2.0 - 7.6 x10 3/uL) 7.91 H Lymph # (Auto) (1.0 - 3.8 x10 3/uL) 1.85 [place] # (Auto) (0.1 - 0.8 x10 3/uL) 0.73 Eos # (Auto) (0.0 - 0.2 x10 3/uL) 0.01 Baso # (Auto) (0.0 - 0.2 x10 3/uL) 0.01 Abs Immat Gran (auto) (0.00 - 0.03 x10 3/uL) 0.10 H Add Manual Diff NO Immature Gran % (0.0 - 2.0 %) 0.9 Nucleated RBC % (0 - 0 %) 0.0 Nucleated RBCs # (Man) (0.0 - 0.1 x10 3/uL) 0.00 Diagnosis, Assessment PlanFree Text A P:Patient seen and evaluated, discussed with care team, images and laboratories reviewed.Diabetes mellitus: Insulin: Monitor blood sugar closely and adjust medications as needed, followed by endocrinology.Hypertension: Blood pressure is not well controlled, increase Coreg to 12.5 mg p.o. twice daily: Monitor blood pressure closely and adjust medications as neededRight foot gangrene/infection status post right BKAAnemia: Status post EGD and colonoscopy which were negative for active GI bleeding, patient had work-up in July 2022 which showed very high B12, normal folate, very low iron saturation but very high ferritin which was likely relatedto his infection, likely patient is very iron deficient, will repeat lab and give IV iron if needed. We will check serum immunofixation.Acute kidney injury: We will check renal bladder ultrasound, check postvoid residual, check urine protein creatinine ratioHypomagnesemia: We will supplement09/10/2022 laboratory this morning showed sodium 135, potassium 4.2, CO2 21, BUN 25, creatinine 1.9 continues to worsen, etiology unclear, however his development some eosinophilia not sure if he is developing AIN, suggest changingcefepime to a different class of antibiotic if possible, will check renal bladder ultrasound09/11/2022 laboratory this morning showed sodium 134, potassium 4.3, CO2 22, BUN 26, creatinine 2 up from 1.9, hopefully creatinine is plateauing, renal ultrasound negative.09/12/2022 laboratory this morning showed sodium 134, potassium 4.2, CO2 20, BUN 31, creatinine 2.4 continues to worsen, discussed with ID, AIN is probably the etiology of the unexplained deterioration of his renal function, antibiotics to be adjusted by infectious disease, will give Solu-Medrol 125 mg IV daily for 3 days. Significant lower extremity edema, will start Lasix 20 mg p.o. twice daily.09.13.23: pt was seen and examined. Very thirsty. serum creatinine is worsening today. Vancomycin was stopped yesterday and Solu medrol was started. Mild hypovolemic hyponatremia. Will DC lasix and monitor his renal functions. BP is well controlled. 09.14.23: pt was seen and examined. Feels better but still thirsty. I stopped hislasix. will start NS at 75 cc for one Leter only. serum creatinine is improving.Received three doses of Solu Medrol a well. BP is on the higher side, likely secondary to steroids. will monitor for now. mild hypovelmic hyponatremia. also could be secondary to hyperglycemia. 09/15/2022 we will give additional dose of Solu-Medrol 125 mg IV today, laboratory this morning showed sodium 132, potassium 4.7, CO2 17, chloride 105, BUN 38, creatinine 2.9, glucose 312, hemoglobin 8.2, platelet 341, blood count 8.7, needs better blood sugar control, if creatinine does not start improving the next couple days will plan for kidney biopsy09/16/2022 laboratory this morning showed sodium 135, potassium 4.5, CO2 20, BUN 60, creatinine 2.7, better down from 2.9, hemoglobin 7.6, platelet 360, blood count 9.5, will give prednisone 80 mg p.o. today, blood pressure is elevated, will add hydralazine 25 mg p.o. 3 times daily, scrotal and LE swelling will giveLasix 40 mg IV x blood pressure still elevated, will increase hydralazine to 50 mg p.o.3 times daily, will give 80 mg of prednisone today, urine output with Lasix 4125, laboratory this morning showed sodium 136, potassium 4.5, CO2 21, BUN 66, creatinine 2.4 down from 2.7, will give 3 more doses of IV Lasix 40 mg every 8 hours09/18/2022 laboratory this morning showed sodium 138, potassium 4.1, CO2 21, BUN 66, creatinine 2.2 continues to improve, urine output 2.7 L, hemoglobin 7.6, platelet 341, blood count 10.6, will give Lasix 40 mg IV every 8 for 3 doses, start prednisone 60 mg p.o. daily for 3 days, increase hydralazine to 75 mg p.o.3 times daily.Consultants: cardiology, endocrinology, hospitalist, infectious disease, podiatry at [address] [facility] #:[id number] OF REPORTPRProgress [id number]:55:00G.[id number] able for patient bnryMLEDQFIBURWCKC4494-94-41I68:06:21 [facility] 2022-09-17 20:38:00 [id number] A2n8t3Bk7ZS7breO+3EH/QNjnSpcf j0QedJ07nWcYyEou/dDCFxN+vNF8582-39-43M99:38:00 [facility]Pod[facility] Progress NoteREPORT#:[id number] REPORT STATUS: SignedDATE:09/17/22 TIME: 2037 PATIENT: KARMA ROWLAND UNIT #: [id number]#: [id number] [place] [facility] [place]: [birth year] AGE: 56 SEX: M ATTEND: Mj Vences [facility] AUTHOR: Liam Pedersen DPM * ALL edits or amendments must be made on the electronic/computer document * SubjectiveChief complaint:left heel ulcer. left ankle painPatient reports: no confusion, no cough, no diarrhea, no fatigue, no fever, no heartburn, no itching, no nausea Objective GeneralVS:Last Documented: Result Date Time Pulse Ox 98 09/17 1836 B/P 178/86 09/17 1836 B/P Mean 116.7 09/17 1836 O2 Delivery Room air 09/17 1836 Temp 36.5 09/17 1836 Pulse 90 09/17 1836 Resp 16 09/17 1836 O2 Flow Rate 2 09/08 1322 PATIENT WEIGHT: Weight (lb): 178Weight (oz): 7.43Weight (kg): 80.950 Medications:Active Meds + DC'd Last 24 HrsFurosemide (LASIX 40 mg/4 mL INJECTION) 40 MG Q8HR IV Hydralazine HCl (APRESOLINE) 50 MG Q8HR PO Furosemide (LASIX 40 mg/4 mL INJECTION) 40 MG Q8HR IV (DC) Prednisone (predniSONE) 80 MG ONCE ONE PO (DC) Furosemide (LASIX 40 mg/4 mL INJECTION) 40 MG Q8HR IV (DC) Hydralazine HCl (APRESOLINE) 25 MG Q8HR PO (DC) Daptomycin (CUBICIN 500MG) 500 MG Q48H IV Sodium Chloride (SODIUM CHLORIDE 0.9%) 50 MLInsulin Human Lispro (HUMALOG) 10 UNIT AC SUBQ Heparin Sodium (HEPARIN 5000 UNITS/ML) 5,000 UNIT Q12HR SUBQ Insulin Glargine (Semglee) 20 UNIT BEDTIME SUBQ Meropenem (MEROPENEM) 500 MG Q8H IV Sterile Water (WATER FOR INJECTION) 10 MLCarvedilol (COREG) 25 MG C BK DIN PO Gabapentin (NEURONTIN) 100 MG Q8HR PO Oxycodone/Acetaminophen (PERCOCET 5/325MG TAB) 2 TAB Q4H PRN PRN PO Folic Acid (FOLIC ACID) 2 MG DAILY PO Multivitamins (TAB-A-MOHAN) 1 TAB DAILY PO Furosemide (LASIX 20MG INJ) 20 MG BLOOD-DOSE BETWEEN IV (CKD) Sodium Chloride (SODIUM CHLORIDE) 10 ML ASDIR IV Pantoprazole Sodium (PROTONIX) 40 MG Q12HR IV Polyethylene Glycol (MIRALAX) 17 GM DAILY PO Sennosides (Senna Lax 8.6 MG TABLET) 8.6 MG DAILY PO Sodium Chloride (SODIUM CHLORIDE) 10 ML ASDIR PRN IV Amitriptyline HCl (ELAVIL) 25 MG BEDTIME PO Zinc Oxide (ZINC OXIDE 30 GM OINTMENT) 1 APPLIC DAILY TOPICAL Sterile Water (WATER FOR IRRIGATION) DRESSING CHANGE ASDIR PRN IRR Insulin Human Lispro (HUMALOG) 0 AC HS SUBQ Dextrose/Water (DEXTROSE 10% IN WATER) 125 ML ASDIR PRN IV (CKD) Dextrose/Water (DEXTROSE 10% IN WATER) 250 ML ASDIR PRN IV (CKD) Glucagon (GLUCAGON) 1 MG ASDIR PRN IM Lidocaine (LIDODERM) 1 PATCH DAILY TOPICAL Acetaminophen (TYLENOL) 650 MG Q6H PRN PRN PO Bisacodyl (DULCOLAX) 10 MG DAILY PRN PRN RECTAL Docusate Sodium (COLACE) 100 MG Q12H PRN PRN PO Hydralazine HCl (APRESOLINE) 10 MG Q6H PRN PRN IV Ondansetron HCl (ZOFRAN) 4 MG Q6H PRN PRN IV I O:24 hour I O ending at 0700: 09/17 0700 09/16 1900 Intake Total 60 1485 Output Total 2175 1950 Balance -2115 -465 Intake, Oral 60 1485 Number 1 Bowel Movements Number 0 0 Incontinent Voids Number Voids 0 0 Output, Urine 2174 1950 Patient 80.95 kg Weight Weight Bed scale Measurement Method Dietitian nutrition assessmentThe data set between the solid lines has been imported from the dietitian's assessment. BMI Calculated: 28.8Nutrition related diagnosis: Nutrition diagnosis details: Nutrition problem: Altered nutrition labsNutrition etiology: DMNutrition signs and symptoms: HYPER/HYPOGLYCEMIA, A1C >14Nutrition prescription: CONTINUE DM DIETDietitian name: You Palmer, DIETAssessment completed: 09/09/22 Physical ExamGeneral appearance: alert, awake, orientedWound/incision: Location:left foot Site condition: dp/pt 2/4 left. light touch decreased left foot. ulcer starting at posterior left heel. eccymosis noted. early likely stage 1. left ankle has edema. pain with aggressive ROM left ankle. dorsal left midfoot is starting to have tissue injuryLE vascular pulse assess:2+ L posterior tibialis, 2+ L dorsalis pedis Considered stroke alert: noUlcer: Location: DTI dorsal left midfoot ResultsFindings/Data:Laboratory Tests: 09/17 09/17 09/17 09/17 09/17 1904 [...] (Auto) (14.0 - 32.0 %) 10.2 L [place] % (Auto) (4.8 - 9.0 %) 2.9 L Eos % (Auto) (0.3 - 3.7 %) 0.0 L Baso % (Auto) (0.0 - 2.0 %) 0.1 Neut # (Auto) (2.0 - 7.6 x10 3/uL) 7.58 Lymph # (Auto) (1.0 - 3.8 x10 3/uL) 0.91 L [place] # (Auto) (0.1 - 0.8 x10 3/uL) 0.26 Eos # (Auto) (0.0 - 0.2 x10 3/uL) 0.00 Baso # (Auto) (0.0 - 0.2 x10 3/uL) 0.01 Abs Immat Gran (auto) (0.00 - 0.03 x10 3/uL) 0.14 H Add Manual Diff NO Immature Gran % (0.0 - 2.0 %) 1.6 Nucleated RBC % (0 - 0 %) 0.0 Nucleated RBCs # (Man) (0.0 - 0.1 x10 3/uL) 0.00 Diagnosis, Assessment PlanFree Text A P:DM with neuropathyearly decub ulcer left heelOA/edema left ankleearly ulcer/DTI dorsal left midfoot zinc oxide to foot and heelfoam to heelon IV abxon PO gabapentinoffloading bootace wraps to ankle, only when OOB with therapy. zinc oxide interchange with bactroban ( applied to dorsal left midfoot early ulcer)Consultants: cardiology, endocrinology, hospitalist, infectious disease, podiatry at 2039 RPT #:[id number] OF REPORTPRProgress [id number]:38:00G.[id number] able for patient zpopIGNGYNGDTDWXCR2875-04-95K66:39:35 [facility] 2022-09-17 18:25:00 [id number] qHXG9TSieUdy6k37Qt9rSfLxKFUJZ r25+d29JmvbOg76biI34LbGuyu32640-74-39V94:25:00 [facility] ([facility])Endocrinology Progress NoteREPORT#:[id number] REPORT STATUS: SignedDATE:09/17/22 TIME: 1824 PATIENT: KARMA ROWLAND UNIT #: [id number]#: [id number] [address] [birth year] AGE: 56 SEX: M ATTEND: Mj Vences MDADM AUTHOR: Braxton Chapin MD * ALL edits or amendments must be made on the electronic/computer document * SubjectivePatient reports: no complaints Objective GeneralVS:Last Documented: Result Date Time Pulse Ox 96 09/17 0955 B/P 184/87 09/17 0955 B/P Mean 119.5 09/17 0955 O2 Delivery Room air 09/17 0955 Pulse 87 09/17 0955 Resp 19 09/17 0955 Temp 36.4 09/17 0636 O2 Flow Rate 2 09/08 1322 PATIENT WEIGHT: Weight (lb): 178Weight (oz): 7.43Weight (kg): 80.950 Medications:Active Meds + DC'd Last 24 HrsFurosemide (LASIX 40 mg/4 mL INJECTION) 40 MG Q8HR IV Hydralazine HCl (APRESOLINE) 50 MG Q8HR PO Furosemide (LASIX 40 mg/4 mL INJECTION) 40 MG Q8HR IV (DC) Prednisone (predniSONE) 80 MG ONCE ONE PO (DC) Furosemide (LASIX 40 mg/4 mL INJECTION) 40 MG Q8HR IV (DC) Hydralazine HCl (APRESOLINE) 25 MG Q8HR PO (DC) Daptomycin (CUBICIN 500MG) 500 MG Q48H IV Sodium Chloride (SODIUM CHLORIDE 0.9%) 50 MLInsulin Human Lispro (HUMALOG) 10 UNIT AC SUBQ Heparin Sodium (HEPARIN 5000 UNITS/ML) 5,000 UNIT Q12HR SUBQ Insulin Glargine (Semglee) 20 UNIT BEDTIME SUBQ Meropenem (MEROPENEM) 500 MG Q8H IV Sterile Water (WATER FOR INJECTION) 10 MLCarvedilol (COREG) 25 MG C BK DIN PO Gabapentin (NEURONTIN) 100 MG Q8HR PO Oxycodone/Acetaminophen (PERCOCET 5/325MG TAB) 2 TAB Q4H PRN PRN PO Folic Acid (FOLIC ACID) 2 MG DAILY PO Multivitamins (TAB-A-MOHAN) 1 TAB DAILY PO Furosemide (LASIX 20MG INJ) 20 MG BLOOD-DOSE BETWEEN IV (CKD) Sodium Chloride (SODIUM CHLORIDE) 10 ML ASDIR IV Pantoprazole Sodium (PROTONIX) 40 MG Q12HR IV Polyethylene Glycol (MIRALAX) 17 GM DAILY PO Sennosides (Senna Lax 8.6 MG TABLET) 8.6 MG DAILY PO Sodium Chloride (SODIUM CHLORIDE) 10 ML ASDIR PRN IV Amitriptyline HCl (ELAVIL) 25 MG BEDTIME PO Zinc Oxide (ZINC OXIDE 30 GM OINTMENT) 1 APPLIC DAILY TOPICAL Sterile Water (WATER FOR IRRIGATION) DRESSING CHANGE ASDIR PRN IRR Insulin Human Lispro (HUMALOG) 0 AC HS SUBQ Dextrose/Water (DEXTROSE 10% IN WATER) 125 ML ASDIR PRN IV (CKD) Dextrose/Water (DEXTROSE 10% IN WATER) 250 ML ASDIR PRN IV (CKD) Glucagon (GLUCAGON) 1 MG ASDIR PRN IM Lidocaine (LIDODERM) 1 PATCH DAILY TOPICAL Acetaminophen (TYLENOL) 650 MG Q6H PRN PRN PO Bisacodyl (DULCOLAX) 10 MG DAILY PRN PRN RECTAL Docusate Sodium (COLACE) 100 MG Q12H PRN PRN PO Hydralazine HCl (APRESOLINE) 10 MG Q6H PRN PRN IV Ondansetron HCl (ZOFRAN) 4 MG Q6H PRN PRN IV Physical ExamGeneral appearance: alert, awake Diagnosis, Assessment PlanHospital course to date:Laboratory Tests: 09/17 09/17 09/17 09/17 09/17 1554 [...] (Auto) (14.0 - 32.0 %) 10.2 L [place] % (Auto) (4.8 - 9.0 %) 2.9 L Eos % (Auto) (0.3 - 3.7 %) 0.0 L Baso % (Auto) (0.0 - 2.0 %) 0.1 Neut # (Auto) (2.0 - 7.6 x10 3/uL) 7.58 Lymph # (Auto) (1.0 - 3.8 x10 3/uL) 0.91 L [place] # (Auto) (0.1 - 0.8 x10 3/uL) 0.26 Eos # (Auto) (0.0 - 0.2 x10 3/uL) 0.00 Baso # (Auto) (0.0 - 0.2 x10 3/uL) 0.01 Abs Immat Gran (auto) (0.00 - 0.03 x10 3/uL) 0.14 H Add Manual Diff NO Immature Gran % (0.0 - 2.0 %) 1.6 Nucleated RBC % (0 - 0 %) 0.0 Nucleated RBCs # (Man) (0.0 - 0.1 x10 3/uL) 0.00 Laboratory Tests: 09/16 09/16 09/16 09/16 1549 1441 1110 0553 Chemistry POC Glucose (70 - 110 MG/DL) 62 L 60 L 148 H 195 H 09/16 09/15 0455 1937 Chemistry Sodium [...] % (Auto) (14.0 - 32.0 %) 18.6 [place] % (Auto) (4.8 - 9.0 %) 6.7 Eos % (Auto) (0.3 - 3.7 %) 0.2 L Baso % (Auto) (0.0 - 2.0 %) 0.1 Neut # (Auto) (2.0 - 7.6 x10 3/uL) 6.99 Lymph # (Auto) (1.0 - 3.8 x10 3/uL) 1.77 [place] # (Auto) (0.1 - 0.8 x10 3/uL) 0.64 Eos # (Auto) (0.0 - 0.2 x10 3/uL) 0.02 Baso # (Auto) (0.0 - 0.2 x10 3/uL) 0.01 Abs Immat Gran (auto) (0.00 - 0.03 x10 3/uL) 0.10 H Add Manual Diff NO Immature Gran % (0.0 - 2.0 %) 1.0 Nucleated RBC % (0 - 0 %) 0.0 Nucleated RBCs # (Man) (0.0 - 0.1 x10 3/uL) 0.00 Laboratory Tests: 09/15 09/15 09/15 09/15 1640 1304 1154 0519 Chemistry POC Glucose (70 - 110 MG/DL) 137 H 126 H 309 H Urines Urine Color (YEL/STRAW) YELLOW Urine Appearance (CLEAR) SL CLOUDY Urine pH (5.0 - 7.0) 5.0 Ur Specific [place] (1.005 - 1.030) 1.013 Urine Protein (NEGATIVE) [...] (Auto) (14.0 - 32.0 %) 11.3 L [place] % (Auto) (4.8 - 9.0 %) 3.2 L Eos % (Auto) (0.3 - 3.7 %) 0.0 L Baso % (Auto) (0.0 - 2.0 %) 0.1 Neut # (Auto) (2.0 - 7.6 x10 3/uL) 7.35 Lymph # (Auto) (1.0 - 3.8 x10 3/uL) 0.98 L [place] # (Auto) (0.1 - 0.8 x10 3/uL) 0.28 Eos # (Auto) (0.0 - 0.2 x10 3/uL) 0.00 Baso # (Auto) (0.0 - 0.2 x10 3/uL) 0.01 Abs Immat Gran (auto) (0.00 - 0.03 x10 3/uL) 0.04 H Add Manual Diff NO Immature Gran % (0.0 - 2.0 %) 0.5 Nucleated RBC % (0 - 0 %) 0.0 Nucleated RBCs # (Man) (0.0 - 0.1 x10 3/uL) 0.00 Microbiology: Date/Time Procedure - Status Source Growth 09/15 0515 MRSA DNA Surveillance Screen - COMP NASAL Laboratory Tests: 09/14 09/14 09/14 09/14 09/13 1130 0736 0509 0555 1937Chemistry Sodium (134 - 147 mEq/L) 132 L [...] H Calcium (8.0 - 10.5 mg/dL) 7.5 LHematology WBC (4.5 - 11.0 x10 3/uL) 9.5 [...] (Auto) (14.0 - 32.0 %) 13.9 L [place] % (Auto) (4.8 - 9.0 %) 5.1 Eos % (Auto) (0.3 - 3.7 %) 0.0 L Baso % (Auto) (0.0 - 2.0 %) 0.1 Neut # (Auto) (2.0 - 7.6 x10 3/uL) 7.58 Lymph # (Auto) (1.0 - 3.8 x10 3/uL) 1.31 [place] # (Auto) (0.1 - 0.8 x10 3/uL) 0.48 Eos # (Auto) (0.0 - 0.2 x10 3/uL) 0.00 Baso # (Auto) (0.0 - 0.2 x10 3/uL) 0.01 Abs Immat Gran (auto) (0.00 - 0.03 0.07 Hx10 3/uL) Add Manual Diff NO Immature Gran % (0.0 - 2.0 %) 0.7 Nucleated RBC % (0 - 0 %) 0.0 Nucleated RBCs # (Man) (0.0 - 0.1 0.00x10 3/uL) 09/13 1629 Chemistry POC Glucose (70 - 110 MG/DL) 130 H Laboratory Tests: 09/13 09/13 09/13 09/12 1105 0599 0455 2016 Chemistry Sodium (134 - 147 [...] (Auto) (14.0 - 32.0 %) 10.4 L [place] % (Auto) (4.8 - 9.0 %) 3.5 L Eos % (Auto) (0.3 - 3.7 %) 0.0 L Baso % (Auto) (0.0 - 2.0 %) 0.1 Neut # (Auto) (2.0 - 7.6 x10 3/uL) 8.34 H Lymph # (Auto) (1.0 - 3.8 x10 3/uL) 1.02 [place] # (Auto) (0.1 - 0.8 x10 3/uL) 0.34 Eos # (Auto) (0.0 - 0.2 x10 3/uL) 0.00 Baso # (Auto) (0.0 - 0.2 x10 3/uL) 0.01 Abs Immat Gran (auto) (0.00 - 0.03 x10 3/uL) 0.07 H Add Manual Diff NO Immature Gran % (0.0 - 2.0 %) 0.7 Nucleated RBC % (0 - 0 %) 0.0 Nucleated RBCs # (Man) (0.0 - 0.1 x10 3/uL) 0.00 Microbiology: Date/Time Procedure - Status Source Growth [...] % (Auto) (14.0 - 32.0 %) 15.0 [place] % (Auto) (4.8 - 9.0 %) 7.9 Eos % (Auto) (0.3 - 3.7 %) 3.8 H Baso % (Auto) (0.0 - 2.0 %) 0.3 Neut # (Auto) (2.0 - 7.6 x10 3/uL) 6.34 Lymph # (Auto) (1.0 - 3.8 x10 3/uL) 1.31 [place] # (Auto) (0.1 - 0.8 x10 3/uL) 0.69 Eos # (Auto) (0.0 - 0.2 x10 3/uL) 0.33 H Baso # (Auto) (0.0 - 0.2 x10 3/uL) 0.03 Abs Immat Gran (auto) (0.00 - 0.03 x10 3/uL) 0.06 H Add Manual Diff NO Immature Gran % (0.0 - 2.0 %) 0.7 Nucleated RBC % (0 - 0 %) 0.0 Nucleated RBCs # (Man) (0.0 - 0.1 x10 3/uL) 0.00 Toxicology Random Vancomycin (mcg/mL) 16.7 Laboratory Tests: 09/11 09/11 09/11 09/11 09/11 1532 1445 1114 [id number] [id number] Sodium (134 - 147 mEq/L) 134 Potassium [...] MG/DL) 4.7 Magnesium (1.80 - 2.40 mg/dL) 1.90Hematology WBC (4.5 - 11.0 x10 3/uL) 7.9 [...] % (Auto) (14.0 - 32.0 %) 16.1 [place] % (Auto) (4.8 - 9.0 %) 9.1 H Eos % (Auto) (0.3 - 3.7 %) 5.6 H Baso % (Auto) (0.0 - 2.0 %) 0.5 Neut # (Auto) (2.0 - 7.6 x10 3/uL) 5.35 Lymph # (Auto) (1.0 - 3.8 x10 3/uL) 1.27 [place] # (Auto) (0.1 - 0.8 x10 3/uL) 0.72 Eos # (Auto) (0.0 - 0.2 x10 3/uL) 0.44 H Baso # (Auto) (0.0 - 0.2 x10 3/uL) 0.04 Abs Immat Gran (auto) (0.00 - 0.03 0.06 Hx10 3/uL) Add Manual Diff NO Immature Gran % (0.0 - 2.0 %) 0.8 Nucleated RBC % (0 - 0 %) 0.0 Nucleated RBCs # (Man) (0.0 - 0.1 0.00x10 3/uL)Toxicology Random Vancomycin (mcg/mL) 18.3 09/10 1851 Chemistry POC Glucose (70 - 110 MG/DL) 97 Laboratory Tests: 09/10 09/10 09/10 09/10 09/10 1715 1625 1430 1007 0545Chemistry Sodium (134 - 147 mEq/L) 135 Potassium [...] MG/DL) 4.6 Magnesium (1.80 - 2.40 mg/dL) 1.89Hematology WBC (4.5 - 11.0 x10 3/uL) 8.6 [...] % (Auto) (14.0 - 32.0 %) 15.5 [place] % (Auto) (4.8 - 9.0 %) 8.5 Eos % (Auto) (0.3 - 3.7 %) 5.5 H Baso % (Auto) (0.0 - 2.0 %) 0.4 Neut # (Auto) (2.0 - 7.6 x10 3/uL) 5.94 Lymph # (Auto) (1.0 - 3.8 x10 3/uL) 1.33 [place] # (Auto) (0.1 - 0.8 x10 3/uL) 0.73 Eos # (Auto) (0.0 - 0.2 x10 3/uL) 0.47 H Baso # (Auto) (0.0 - 0.2 x10 3/uL) 0.03 Abs Immat Gran (auto) (0.00 - 0.03 0.06 Hx10 3/uL) Add Manual Diff NO Immature Gran % (0.0 - 2.0 %) 0.7 Nucleated RBC % (0 - 0 %) 0.0 Nucleated RBCs # (Man) (0.0 - 0.1 0.00x10 3/uL)Toxicology Random Vancomycin (mcg/mL) 15.7 09/10 09/09 0541 1911 Chemistry POC Glucose (70 - 110 MG/DL) 154 H 102 Recent Impressions:ULTRASOUND - US RETROPERITONEAL COM 09/10 1311 Report Impression - Status: SIGNED Entered: 09/10/2022 1503 IMPRESSION: No acute findings. Impression By: Yared - Bishop Mares M.D. Laboratory Tests: 09/09 09/09 09/09 09/09 09/09 [...] % (Auto) (14.0 - 32.0 %) 16.1 Len[place] % (Auto) (4.8 - 9.0 %) 9.2 H Eos % (Auto) (0.3 - 3.7 %) 4.7 H Baso % (Auto) (0.0 - 2.0 %) 0.4 Neut # (Auto) (2.0 - 7.6 x10 3/uL) 6.38 Lymph # (Auto) (1.0 - 3.8 x10 3/uL) 1.49 Lenoir # (Auto) (0.1 - 0.8 x10 3/uL) 0.85 H Eos # (Auto) (0.0 - 0.2 x10 3/uL) 0.43 H Baso # (Auto) (0.0 - 0.2 x10 3/uL) 0.04 Abs Immat Gran (auto) (0.00 - 0.03 x10 3/uL) 0.05 H Add Manual Diff NO Immature Gran % (0.0 - 2.0 %) 0.5 Nucleated RBC % (0 - 0 %) 0.0 Nucleated RBCs # (Man) (0.0 - 0.1 x10 3/uL) 0.00 Retic Count (auto) (0.3 - 2.3 [...] (Auto) (14.0 - 32.0 %) 13.7 L Lenoir % (Auto) (4.8 - 9.0 %) 7.2 Eos % (Auto) (0.3 - 3.7 %) 4.8 H Baso % (Auto) (0.0 - 2.0 %) 0.3 Neut # (Auto) (2.0 - 7.6 x10 3/uL) 6.64 Lymph # (Auto) (1.0 - 3.8 x10 3/uL) 1.24 Lenoir # (Auto) (0.1 - 0.8 x10 3/uL) 0.65 Eos # (Auto) (0.0 - 0.2 x10 3/uL) 0.43 H Baso # (Auto) (0.0 - 0.2 x10 3/uL) 0.03 Abs Immat Gran (auto) (0.00 - 0.03 x10 3/uL) 0.06 H Add Manual Diff NO Immature Gran % (0.0 - 2.0 %) 0.7 Nucleated RBC % (0 - 0 %) 0.0 Nucleated RBCs # (Man) (0.0 - 0.1 x10 3/uL) 0.00 Laboratory Tests: 09/07 09/07 09/07 09/07 09/07 1554 1137 1127 0618 0510 Chemistry Creatinine (0.6 - 1.3 mg/dL) 1.4 H POC Glucose (70 - 110 MG/DL) 112 H 51 L 42 L 135 H Hematology Hgb (12.5 - 16.9 [...] 1739 Occult Blood - COMP STOOL Recent Impressions:RADIOLOGY - XR ABDOMEN 1V (KUB) 09/04 1648 Report Impression - Status: SIGNED Entered: 09/04/2022 1757 IMPRESSION: Benign appearance of the abdomen.Impression By: [email or web address] - Roger Parra M.D.ULTRASOUND - DUP VEIN UNI/LTD 09/05 1146 Report Impression - Status: SIGNED Entered: 09/05/2022 1333 IMPRESSION: 1. No evidence of deep vein thrombosis. 2. Complex heterogeneous hypoechoic fluid collection in the left calf region measuring 8.4 x 2.8 x 2.5 cm; there is no internal vascularity or peripheral hyperemia. May represent a hematoma.Impression By: [id number] - Mert Ga M.D.RADIOLOGY - XR CHEST 1 V 09/05 1432 Report Impression - Status: SIGNED Entered: 09/05/2022 1515 IMPRESSION: Minimal bibasilar pulmonary opacitiesImpression By: Yared Mares M.D. Laboratory Tests: 09/04 09/04 09/04 09/04 09/04 [...] COLB STOOL 1.Diabetes mellitus type 2 uncontrolled complications.2. Status post right BKA3. Status post gangrene of the right foot.4. Sepsis5. Prostate abscess.6. AnemiaBlood sugar 285-256 mg/dL.H/H 8.11/17.Adjust insulin dose.PT and OT. at 1826 RPT #:[id number] OF REPORTPRProgress [id number]:25:00G.[id number] able for patient wvrpJJTZYGPIXFLTNU0736-34-83H68:26:23 [facility] 2022-09-17 15:00:00 [id number] chfNZKOv51ZhpqP65Jlk34o16GYUc dBJokaCCcbYWAtkgaLiNtzCURKd3118-16-17P43:00:00 [facility] ([facility])Gastroenterology Progress NoteREPORT#:[id number] REPORT STATUS: SignedDATE:09/17/22 TIME: 1500 PATIENT: KARMA ROWLAND UNIT #: [id number]#: [id number] [address] [birth year] AGE: 56 SEX: M ATTEND: Mj Vences MDADM AUTHOR: Kassie Avitia MD * ALL edits or amendments must be made on the electronic/computer document * SubjectiveHPI:Patient is a 56-year-old male with history of diabetes mellitus type 2 and hypertension who was initially admitted for altered mental status and right-sided foot infection. 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 The patient is anemic with current Hgb 7.1. He has received a total of 3 units pRBCs during this hospitalization. KUB on 09/04 was negative for acute GI process. The patient denies overt GIB, dark tarry stools, nausea, abdominal pain, or vomiting. He has never had EGD orcolonoscopy. 09/06: No complaints today. Hemoglobin stable. No overt GI bleed. Plan for colonoscopy and endoscopy on Thursday 09/07: No complaints today. No overt GI bleed. Planning for colonoscopy and endoscopy tomorrow 09/08: EGD mild gastritis. colonoscopy rectal polyp s/p snare. No other abnormalities 09/09: doing well. Seen at the gym. No bleeding. 09/10: Doing well. No bleeding. tolerating diet. Movig bowels 09/11: doing well. States his leg swelling is better. Tolerating diet. having normal BM 09/12: dooing well. doing work-out at the gym. Tolerating diet. Normal BMs. Stable H/-Sitting up in wheelchair, family at bedside. Denies n/v/abd pain/GIB 09/15: Doing well. H/H stable. No melena or BRBPR. No nausea or vomiting. Appetite is well 09/16: doing well. no complaints. eating well 09/17: stable H/H. No complaints. Objective Physical ExamHEENT: atraumatic, normocephalicNeck: full range of motion, non-tenderRespiratory: symmetric expansion, no distressAbdomen: non-tender, normal bowel sounds, soft, no distention, no guardingExtremities: right BKA Considered stroke alert: noSkin: dry Diagnosis, Assessment PlanFree Text A P:1. Positive FOBT-and anemia: The patient denies overt GIB, dark tarry stools, nausea, abdominal pain, or vomiting. He is not on anticoagulation therapy.-Continue PPI. The patient has never had EGD or colonoscopy prior to this admissions/p EGD and colonoscopy. EGD showed mild gastritis. Colonoscopy showed rectal polyp that was resected by snare. no evidence of bleeding. Pathology of polyp came back as tubular adenoma. recommend repeating colonoscopy in 5 years Anemia likely secondary to chronic kidney disease.Can consider video capsule endoscopy as outpt if evidence of dropping H/HH/H remains stable Consider checking blood work Q3 days since H/H is stableWill follow along Consultants: cardiology, endocrinology, hospitalist, infectious disease, podiatry at 1500 RPT #:[id number] OF REPORTPRProgress [id number]:00:00G.[id number] able for patient srxcLOZDMSRZULVMEA9389-77-37V10:00:57 [facility] 2022-09-17 13:09:00 [id number] Dm/ru8uTRW4pegSvZHxc2nogbB0Ho SwlCGtv3261Jzmf3o29n4eLYjqQ6650-32-12V58:09:00 [facility] ([facility])Pain Management Progress NoteREPORT#:[id number] REPORT STATUS: SignedDATE:09/17/22 TIME: 1309 PATIENT: KARMA ROWLAND UNIT #: [id number]#: [id number] [address] [birth year] AGE: 56 SEX: M ATTEND: Mj Vences AUTHOR: Ben Klein * ALL edits or amendments must be made on the electronic/computer document * Ben Klein 09/17/22 1309:SubjectiveChief complaint:Patient seen and examined. Chart/MAR reviewed. Patient resting comfortably. No acute concerns. Pain control is good today. Patient being seen for Acute postoperative pain, right foot and ankle gangrene, requiring BKA, Constipation Patient is still requiring medications to help with managing currentproblems. Patient is requiring IV narcotics to help manage breakthrough pain No fever/chills, chest pain, orthopnea, nausea/vomiting, pruritus, orhallucinations.14 point ROS undertaken unremarkable except as noted Objective GeneralVS/I O:Vital Signs Date Temp Pulse Resp B/P B/P Mean Pulse Ox FiO2 09/16-09/17 36.4 77-92 16-19 155-184/76-87 103.8-119.5 92-97 Last Documented: Result Date Time Pulse Ox 96 09/17 0955 B/P 184/87 09/17 0955 B/P Mean 119.5 09/17 0955 O2 Delivery Room air 09/17 0955 Pulse 87 09/17 0955 Resp 19 09/17 0955 Temp 36.4 09/17 0636 O2 Flow Rate [...] scale Measurement Method PATIENT WEIGHT: Weight (lb): 178Weight (oz): 7.43Weight (kg): 80.950 Medications:Active Meds + DC'd Last 24 HrsFurosemide (LASIX 40 mg/4 mL INJECTION) 40 MG Q8HR IV Hydralazine HCl (APRESOLINE) 50 MG Q8HR PO Furosemide (LASIX 40 mg/4 mL INJECTION) 40 MG Q8HR IV (DC) Prednisone (predniSONE) 80 MG ONCE ONE PO (DC) Furosemide (LASIX 40 mg/4 mL INJECTION) 40 MG Q8HR IV (DC) Hydralazine HCl (APRESOLINE) 25 MG Q8HR PO (DC) Daptomycin (CUBICIN 500MG) 500 MG Q48H IV Sodium Chloride (SODIUM CHLORIDE 0.9%) 50 MLInsulin Human Lispro (HUMALOG) 10 UNIT AC SUBQ Heparin Sodium (HEPARIN 5000 UNITS/ML) 5,000 UNIT Q12HR SUBQ Insulin Glargine (Semglee) 20 UNIT BEDTIME SUBQ Meropenem (MEROPENEM) 500 MG Q8H IV Sterile Water (WATER FOR INJECTION) 10 MLCarvedilol (COREG) 25 MG C BK DIN PO Gabapentin (NEURONTIN) 100 MG Q8HR PO Oxycodone/Acetaminophen (PERCOCET 5/325MG TAB) 2 TAB Q4H PRN PRN PO Folic Acid (FOLIC ACID) 2 MG DAILY PO Multivitamins (TAB-A-MOHAN) 1 TAB DAILY PO Furosemide (LASIX 20MG INJ) 20 MG BLOOD-DOSE BETWEEN IV (CKD) Sodium Chloride (SODIUM CHLORIDE) 10 ML ASDIR IV Pantoprazole Sodium (PROTONIX) 40 MG Q12HR IV Polyethylene Glycol (MIRALAX) 17 GM DAILY PO Sennosides (Senna Lax 8.6 MG TABLET) 8.6 MG DAILY PO Sodium Chloride (SODIUM CHLORIDE) 10 ML ASDIR PRN IV Amitriptyline HCl (ELAVIL) 25 MG BEDTIME PO Zinc Oxide (ZINC OXIDE 30 GM OINTMENT) 1 APPLIC DAILY TOPICAL Sterile Water (WATER FOR IRRIGATION) DRESSING CHANGE ASDIR PRN IRR Insulin Human Lispro (HUMALOG) 0 AC HS SUBQ Dextrose/Water (DEXTROSE 10% IN WATER) 125 ML ASDIR PRN IV (CKD) Dextrose/Water (DEXTROSE 10% IN WATER) 250 ML ASDIR PRN IV (CKD) Glucagon (GLUCAGON) 1 MG ASDIR PRN IM Lidocaine (LIDODERM) 1 PATCH DAILY TOPICAL Acetaminophen (TYLENOL) 650 MG Q6H PRN PRN PO Bisacodyl (DULCOLAX) 10 MG DAILY PRN PRN RECTAL Docusate Sodium (COLACE) 100 MG Q12H PRN PRN PO Hydralazine HCl (APRESOLINE) 10 MG Q6H PRN PRN IV Ondansetron HCl (ZOFRAN) 4 MG Q6H PRN PRN IV Physical ExamGeneral appearance: alert, awake, oriented, no acute distressHead/eyes: atraumatic, EOMI, normocephalic, normal conjunctiva/sclera, PERRLAENT: normal ear left, normal ear right, normal nose, normal pharynx, moist mucosal membranesNeck: full range of motion, no lymphadenopathy, supple/no meningismusCardiovascular: regular rate rhythmRespiratory: clear to auscultation, no distress, aerating wellAbdomen: soft, non-tender, no distention, active bowel sounds in all quarants. Abdomen quadrantsLLQ normal bowel sounds, LUQ normal bowel sounds, RLQ normal bowel sounds, RUQ normal bowel soundsExtremities: moves all, no edema, pedal pulsesNeuro/DIRECTOR OPERATING ROOM: 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, no sensory deficits, CNII-XII grossly intact Considered stroke alert: noSkin: dry, normal turgor, no rash, warm ResultsFindings/data:Laboratory Tests: 09/17 09/17 09/17 09/17 09/17 1027 0951 0601 0451 0450Chemistry Sodium (134 - 147 mEq/L) 136 Potassium [...] MG/DL) 4.5 Magnesium (1.80 - 2.40 mg/dL) 1.97Hematology WBC (4.5 - 11.0 x10 3/uL) 8.9 [...] (Auto) (14.0 - 32.0 %) 10.2 L [place] % (Auto) (4.8 - 9.0 %) 2.9 L Eos % (Auto) (0.3 - 3.7 %) 0.0 L Baso % (Auto) (0.0 - 2.0 %) 0.1 Neut # (Auto) (2.0 - 7.6 x10 3/uL) 7.58 Lymph # (Auto) (1.0 - 3.8 x10 3/uL) 0.91 L [place] # (Auto) (0.1 - 0.8 x10 3/uL) 0.26 Eos # (Auto) (0.0 - 0.2 x10 3/uL) 0.00 Baso # (Auto) (0.0 - 0.2 x10 3/uL) 0.01 Abs Immat Gran (auto) (0.00 - 0.03 0.14 Hx10 3/uL) Add Manual Diff NO Immature Gran % (0.0 - 2.0 %) 1.6 Nucleated RBC % (0 - 0 %) 0.0 Nucleated RBCs # (Man) (0.0 - 0.1 0.00x10 3/uL) 09/16 09/16 09/16 09/16 2345 1931 1549 1441 Chemistry POC Glucose (70 - 110 MG/DL) 291 H 219 H 62 L 60 L Diagnosis, Assessment PlanFree text A P:A/P:Patient is a 56 year old male who presents with: Past Medical History: Prostate abscess, right foot foot and ankle gangrene, diabetes, hypertension, hyperlipidemiaPast Surgical History: TURP, right BKAFamily History: NoncontributorySocial History: Denies tobacco, alcohol, or drug useAllergies: NKDA Recent prostate abscess-Status post TURP with unroofing of abscess-IV antibiotics with vancomycin until 09-24-2022 Acute postoperative pain, right foot and ankle gangrene, requiring BKA-Patient is at risk for further amputations or loss of limb due to comorbid conditions-Status post right BKA 08/28/2022-DC Sheldon 10/325 1 tablet p.o. every 4 hours as needed pain scale 4 10-DC Dilaudid 0.5 mg IV daily as needed pain scale 7 10, second line therapy (09/13)-Tylenol 650 mg p.o. every 6 hours as needed pain scale 1 3-Percocet 10/325mg every 4 hours as needed, pain scale 4-10 (09/10)-Lidoderm patch to left ankle daily-IV antibiotics with vancomycin until 0-2-4647-Local wound care-manageable Diabetic peripheral neuropathy-amitriptyline 25mg PO QHS-Gabapentin 100mg every 8 hours (09/10)-manageable Hypertension-We will monitor hypertension and tachycardia due to pain, and hypotension as well as bradycardia secondary over sedation with narcotics-Hydralazine as needed Elevated LFTs-08/20/22-AST 51, ALT 22-09/03/2022-AST 15, ALT 7-Patient will require close monitoring since he is using narcotics with Tylenol Impaired functional mobility, balance, gait, and endurance-PT/OT Antalgic/Impaired gait-PT/OT-Improve strength, endurance, self-care, gait, balance, ADLs-Fall precautions per unit protocol-Pain medications as outlined above Constipation-We will monitor while utilizing opioid narcotic medications.-Adequate fluid intake also discussed.-Colace 100 mg p.o. twice daily as needed-Dulcolax 10 mg rectally daily as needed-Senna lax 8.6mg daily-Miralax 17gm daily-manageable Disposition: percocet 10/325mg q6h prn pain , gabapentin 100mg q8h sent to [facility]/pharmacy #[id number] [facility] [place] [address] ([facility] [address]) Patient has failed conservative medical therapy.Patient will require monitoring while utilize narcotic medications for any adverse effects, and will adjust as neededPlan of care discussed with patient and nurseAll diagnostics of last 24 hours been reviewed. Risks versus benefits of opioid medications were reviewed to include, but not limited to respiratory depression, accidental overdose, altered mental status, sudden , constipation which could result in bowel obstruction, seizures, withdrawal, dependency addiction, risk for falls. Case discussed with Dr Ng whom agrees. Thank you for the consultation. [place] [employer] OFFICER:-database searched, no information found Kingsley Ng 10/04/22 1731:Attestations Physician AttestationAgree w/findings plan:The patient was seen and examined by Ben Klein. I personally developed the care plan, which was continued by the mid-level provider. I was immediately available. at 1902 at 1737 RPT #:[id number] OF REPORTPRProgress rbzx3024-86-51K93:09:00G.[id number] able for patient vpgeETGYELDOKGXWTF6118-36-51V34:03:12 [facility] 2022-09-17 12:37:00 [id number] VdPRYqA7zFmQKWp8hu3B2QKovP9w1 ZAGurCSVZm7SdScfP6iiEJSoCDa5228-14-61Y35:37:00 [facility] HospitalHospital[facility] Progress NoteREPORT#:[id number] REPORT STATUS: SignedDATE:09/17/22 TIME: 1237 PATIENT: KARMA ROWLAND UNIT #: [id number]#: [id number] [address] [birth year] AGE: 56 SEX: M ATTEND: Mj Vences [facility] AUTHOR: Meera Chavira DO * ALL edits or amendments must be made on the electronic/computer document * SubjectiveChief complaint:Increasing edema LE to thighs and lower abdomen Review of SystemsCardiovascular:Reports: edema. All systems rev neg: except as noted Objective GeneralVS/I O:Vital Signs: Date Time Temp Pulse Resp B/P B/P Pulse O2 O2 Flow FiO2 Mean Ox Delivery Rate 09/17 0955 [...] scale Measurement Method PATIENT WEIGHT: Weight (lb): 178Weight (oz): 7.43Weight (kg): 80.950 Medications:Active Meds + DC'd Last 24 HrsFurosemide (LASIX 40 mg/4 mL INJECTION) 40 MG Q8HR IV Hydralazine HCl (APRESOLINE) 50 MG Q8HR PO Furosemide (LASIX 40 mg/4 mL INJECTION) 40 MG Q8HR IV (DC) Prednisone (predniSONE) 80 MG ONCE ONE PO (DC) Furosemide (LASIX 40 mg/4 mL INJECTION) 40 MG Q8HR IV (DC) Hydralazine HCl (APRESOLINE) 25 MG Q8HR PO (DC) Daptomycin (CUBICIN 500MG) 500 MG Q48H IV Sodium Chloride (SODIUM CHLORIDE 0.9%) 50 MLInsulin Human Lispro (HUMALOG) 10 UNIT AC SUBQ Heparin Sodium (HEPARIN 5000 UNITS/ML) 5,000 UNIT Q12HR SUBQ Insulin Glargine (Semglee) 20 UNIT BEDTIME SUBQ Meropenem (MEROPENEM) 500 MG Q8H IV Sterile Water (WATER FOR INJECTION) 10 MLCarvedilol (COREG) 25 MG C BK DIN PO Gabapentin (NEURONTIN) 100 MG Q8HR PO Oxycodone/Acetaminophen (PERCOCET 5/325MG TAB) 2 TAB Q4H PRN PRN PO Folic Acid (FOLIC ACID) 2 MG DAILY PO Multivitamins (TAB-A-MOHAN) 1 TAB DAILY PO Furosemide (LASIX 20MG INJ) 20 MG BLOOD-DOSE BETWEEN IV (CKD) Sodium Chloride (SODIUM CHLORIDE) 10 ML ASDIR IV Pantoprazole Sodium (PROTONIX) 40 MG Q12HR IV Polyethylene Glycol (MIRALAX) 17 GM DAILY PO Sennosides (Senna Lax 8.6 MG TABLET) 8.6 MG DAILY PO Sodium Chloride (SODIUM CHLORIDE) 10 ML ASDIR PRN IV Amitriptyline HCl (ELAVIL) 25 MG BEDTIME PO Zinc Oxide (ZINC OXIDE 30 GM OINTMENT) 1 APPLIC DAILY TOPICAL Sterile Water (WATER FOR IRRIGATION) DRESSING CHANGE ASDIR PRN IRR Insulin Human Lispro (HUMALOG) 0 AC HS SUBQ Dextrose/Water (DEXTROSE 10% IN WATER) 125 ML ASDIR PRN IV (CKD) Dextrose/Water (DEXTROSE 10% IN WATER) 250 ML ASDIR PRN IV (CKD) Glucagon (GLUCAGON) 1 MG ASDIR PRN IM Lidocaine (LIDODERM) 1 PATCH DAILY TOPICAL Acetaminophen (TYLENOL) 650 MG Q6H PRN PRN PO Bisacodyl (DULCOLAX) 10 MG DAILY PRN PRN RECTAL Docusate Sodium (COLACE) 100 MG Q12H PRN PRN PO Hydralazine HCl (APRESOLINE) 10 MG Q6H PRN PRN IV Ondansetron HCl (ZOFRAN) 4 MG Q6H PRN PRN IV Physical ExamGeneral appearance: alert, awake, oriented, no acute distress, pleasant, conversational, mental status normal, no respiratory distressHead/Eyes: atraumatic, normocephalicENT: moist mucosal membranesNeck: no JVDCardiovascular: normal heart sounds, regular rate rhythmRespiratory: aerating well, clear to auscultationAbdomen: non-tender, normal bowel soundsGenitourinary: no bladder distentionExtremities: edema (1+ pitting edema to thigh), moves all, normal capillary refillMusculoskeletal: normal inspectionNeuro/DIRECTOR OPERATING ROOM: alert, oriented X 3, 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 Considered stroke alert: noSkin: dry, intactPsychiatry: normal affect, normal judgment/insight ResultsFindings/Data:Laboratory Tests 09/17 09/17 09/17 09/17 09/17 1027 0951 0601 0453 045 Chemistry Sodium (134 - 147 mEq/L) 136 [...] MG/DL) 291 H 219 H 62 L 60 L Laboratory Tests 09/17 0450 Hematology WBC [...] (Auto) (14.0 - 32.0 %) 10.2 L [place] % (Auto) (4.8 - 9.0 %) 2.9 L Eos % (Auto) (0.3 - 3.7 %) 0.0 L Baso % (Auto) (0.0 - 2.0 %) 0.1 Neut # (Auto) (2.0 - 7.6 x10 3/uL) 7.58 Lymph # (Auto) (1.0 - 3.8 x10 3/uL) 0.91 L [place] # (Auto) (0.1 - 0.8 x10 3/uL) 0.26 Eos # (Auto) (0.0 - 0.2 x10 3/uL) 0.00 Baso # (Auto) (0.0 - 0.2 x10 3/uL) 0.01 Abs Immat Gran (auto) (0.00 - 0.03 x10 3/uL) 0.14 H Add Manual Diff NO Immature Gran % (0.0 - 2.0 %) 1.6 Nucleated RBC % (0 - 0 %) 0.0 Nucleated RBCs # (Man) (0.0 - 0.1 x10 3/uL) 0.00 Diagnosis, Assessment PlanConsultants: cardiology, endocrinology, hospitalist, infectious disease, podiatry Free Text DxA P NotesFree text DxA P notes:Gangrene of right foot s/p Below- knee amputation Prostate abscessMRSA bacteremiaHx of Diabetes, Diabetic neuropathyHTNAKI PLANS: Continue with PT/OT per primary Wound care and Abx as per IDHepain PPXIV ironBP continues to be elevated, add Hydralazine. cont Metoprolol to 25 mg BIDBS above target due to recent steroids started by Nephrology for AIN - Endo adjusting insulinpain controlcreatinine continuing to trend downHgb stabilized. continue to monitor at 1240 RPT #:[id number] OF REPORTPRProgress qwdx5115-47-20C77:37:00G.[id number] able for patient yijwVRQHFDMEUXUQQM9531-75-68H64:40:34 [facility] 2022-09-17 12:10:00 [id number] CxiPab7m1bd9Y6RKTKSnswpAZgJjA wRU06b+YQuuaqeSd8PDC+aGsb329569-68-54D53:10:00 [facility] ([facility])Infectious Dis. Progress NoteREPORT#:[id number] REPORT STATUS: SignedDATE:09/17/22 TIME: 1210 PATIENT: KARMA ROWLAND UNIT #: [id number]#: [id number] [place] [facility] [place]: [birth year] AGE: 56 SEX: M ATTEND: Mj Vences [facility] AUTHOR: Linda Anderson MD * ALL edits or amendments must be made on the electronic/computer document * SubjectiveHPI:PT is a 56yr old male with history of diabetes mellitus type 2, hypertension whowas admitted with altered mental status and right-sided foot infection. According to him, he noticed a blister on his right foot around 3 days prior to presentation. His foot got progressively more swollen and erythema extended proximally to his lateral foot and ankle. CT abdomen and pelvis with contrast is concerning for possible prostate abscess. CT of lower extremity without contrast shows extensive soft tissue edema with mottled gas in the subcutaneous and intramuscular compartments of the foot, compatible with gas-forming infection. Patient's blood cultures have come back positive for MRSA in 2 out of 2 sets. PT has had persistent (+)Ve cx for MRSA 08/18- 08/22. He underwent a debridement of his foot on 08/19 and cx grew MRSA. PT was started on Vancomycin and clindamycin on 08/18. His MRI showed a prostate abscess. 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 Pt underwent a transrectal aspiration and unroofing of prostate abscess 08/26 and cx grew Citrobacter, Enterococcus, MRSA. He also hada BKA of right leg 08/28. JIMENA done 09/02. Pt was transferred to Rehab on 09/02. Patient reports:No: cough, diarrhea, fever, headache, nausea, shortness of breath, vomiting. Portions of this section were scribed by Jill Quintero on 09/17/22 at 1210 Objective GeneralVS/I O:Vital Signs Date Temp Pulse Resp B/P B/P Mean Pulse Ox FiO2 09/16-09/17 97.5 77-92 16-19 155-184/76-87 103.8-119.5 92-97 Last Documented: Result Date Time Pulse Ox 96 09/17 0955 B/P 184/87 09/17 0955 B/P Mean 119.5 09/17 0955 O2 Delivery Room air 09/17 0955 Pulse 87 09/17 0955 Resp 19 09/17 0955 Temp 97.5 09/17 0636 O2 Flow Rate 2 09/08 1322 Vital Signs: Date Time Temp Pulse Resp B/P B/P Pulse O2 O2 Flow FiO2 Mean Ox Delivery Rate 09/17 0955 [...] scale Measurement Method PATIENT WEIGHT: Weight (lb): 178Weight (oz): 7.43Weight (kg): 80.950 Antibiotic start date:Antibiotic: vancomycinStart Date:09/03-09/12Antibiotic: daptomycin Start Date:08/28-09/03, restarted on 09/12 Antibiotic: cefepime Start Date:09/01-09/12 Antibiotic: merremStart Date:08/27-09/01, 09/12- Physical ExamHead/Eyes: atraumatic, clear cornea, EOMI, normal conjunctiva/sclera, normal eyelids/periorb, normocephalic, PERRLENT: moist mucosal membranes, normal dentitionNeck: full range of motionCardiovascular: normal heart sounds, regular rate rhythmRespiratory: clear to auscultation, aerating wellAbdomen: non-tender, normal bowel sounds, softExtremities: moves all, right BKA Left foot wound +dressing in placeNeuro/DIRECTOR OPERATING ROOM: alert, oriented X 3 Considered stroke alert: noSkin: dry, intact ResultsFindings/Data:Laboratory Tests 09/17 09/17 09/17 09/17 09/17 1027 0951 0601 0450 0450 Chemistry Sodium (134 - 147 mEq/L) [...] MG/DL) 291 H 219 H 62 L 60 L Laboratory Tests 09/17 0450 Hematology WBC [...] (Auto) (14.0 - 32.0 %) 10.2 L [place] % (Auto) (4.8 - 9.0 %) 2.9 L Eos % (Auto) (0.3 - 3.7 %) 0.0 L Baso % (Auto) (0.0 - 2.0 %) 0.1 Neut # (Auto) (2.0 - 7.6 x10 3/uL) 7.58 Lymph # (Auto) (1.0 - 3.8 x10 3/uL) 0.91 L [place] # (Auto) (0.1 - 0.8 x10 3/uL) 0.26 Eos # (Auto) (0.0 - 0.2 x10 3/uL) 0.00 Baso # (Auto) (0.0 - 0.2 x10 3/uL) 0.01 Abs Immat Gran (auto) (0.00 - 0.03 x10 3/uL) 0.14 H Add Manual Diff NO Immature Gran % (0.0 - 2.0 %) 1.6 Nucleated RBC % (0 - 0 %) 0.0 Nucleated RBCs # (Man) (0.0 - 0.1 x10 3/uL) 0.00 Laboratory Tests: 09/17 09/17 09/17 09/17 09/17 1027 0951 0601 0451 0450Chemistry Sodium (134 - 147 mEq/L) 136 Potassium [...] MG/DL) 4.5 Magnesium (1.80 - 2.40 mg/dL) 1.97Hematology WBC (4.5 - 11.0 x10 3/uL) 8.9 [...] (Auto) (14.0 - 32.0 %) 10.2 L [place] % (Auto) (4.8 - 9.0 %) 2.9 L Eos % (Auto) (0.3 - 3.7 %) 0.0 L Baso % (Auto) (0.0 - 2.0 %) 0.1 Neut # (Auto) (2.0 - 7.6 x10 3/uL) 7.58 Lymph # (Auto) (1.0 - 3.8 x10 3/uL) 0.91 L [place] # (Auto) (0.1 - 0.8 x10 3/uL) 0.26 Eos # (Auto) (0.0 - 0.2 x10 3/uL) 0.00 Baso # (Auto) (0.0 - 0.2 x10 3/uL) 0.01 Abs Immat Gran (auto) (0.00 - 0.03 0.14 Hx10 3/uL) Add Manual Diff NO Immature Gran % (0.0 - 2.0 %) 1.6 Nucleated RBC % (0 - 0 %) 0.0 Nucleated RBCs # (Man) (0.0 - 0.1 0.00x10 3/uL) 09/16 09/16 09/16 09/16 09/16 2345 1931 1549 1441 1110 Chemistry POC Glucose (70 - 110 MG/DL) 291 H 219 H 62 L 60 L 148 H 09/16 09/16 09/15 09/15 [...] % (Auto) (14.0 - 32.0 %) 18.6 [place] % (Auto) (4.8 - 9.0 %) 6.7 Eos % (Auto) (0.3 - 3.7 %) 0.2 L Baso % (Auto) (0.0 - 2.0 %) 0.1 Neut # (Auto) (2.0 - 7.6 x10 3/uL) 6.99 Lymph # (Auto) (1.0 - 3.8 x10 3/uL) 1.77 [place] # (Auto) (0.1 - 0.8 x10 3/uL) 0.64 Eos # (Auto) (0.0 - 0.2 x10 3/uL) 0.02 Baso # (Auto) (0.0 - 0.2 x10 3/uL) 0.01 Abs Immat Gran (auto) (0.00 - 0.03 x10 3/uL) 0.10 H Add Manual Diff NO Immature Gran % (0.0 - 2.0 %) 1.0 Nucleated RBC % (0 - 0 %) 0.0 Nucleated RBCs # (Man) (0.0 - 0.1 x10 3/uL) 0.00 Immunology Complement C3 (82 - 167 mg/dL) 121 Complement C4 (12 - 38 mg/dL) 09/15 1304 Urines Urine Color (YEL/STRAW) YELLOW Urine Appearance (CLEAR) SL CLOUDY Urine pH (5.0 - 7.0) 5.0 Ur Specific [place] (1.005 - 1.030) 1.013 Urine Protein (NEGATIVE) [...] U Random Total Protein (mg/dL) 283 Medication(s) Ordered:Anti-Infective Agents Sig/Jan Start time Last Medication Dose [...] Sodium 5,000 UNIT Q12HR 09/15 2100 AC 09/17 SUBQ 10/15 205 0900 Cardiovascular Drugs Sig/Jan Start time Last Medication [...] TAB Q4H PRN PRN 09/10 0715 AC 09/16 Acetaminophen PO 10/10 1300 1910 Amitriptyline HCl 25 MG BEDTIME 09/04 2100 AC 09/16 PO 10/04 2058 205 Acetaminophen 650 [...] 10 ML ASDIR PRN 09/05 0630 AC 09/15 IV 10/05 0629 0912 Sterile Water [...] Sodium 40 MG Q12HR 09/05 0900 AC 09/17 IV 10/05 0859 0859 Polyethylene Glycol 17 GM DAILY 09/05 0900 AC 09/17 PO 10/05 0859 0901 Sennosides 8.6 [...] Lispro 10 UNIT AC 09/16 0730 AC 09/17 SUBQ 10/16 0729 0859 Insulin Glargine 20 UNIT BEDTIME 09/15 2100 AC 09/16 SUBQ 10/15 Insulin Human Lispro 0 HS 09/03 1630 AC 09/17 SUBQ 10/03 1629 0859 Glucagon 1 MG ASDIR PRN 09/03 1515 AC IM 10/03 1514 Local Anesthetics (Parenteral) Sig/Jan Start time Last Medication Dose Route Stop Time Status Admin Lidocaine 1 PATCH DAILY 09/03 899 AC 09/17 TOPICAL 10/03 0859 0901 Skin And Mucous Membrane Agent Sig/Jan Start time Last Medication Dose Route Stop Time Status Admin Zinc Oxide 1 APPLIC DAILY 09/04 899 AC 09/17 TOPICAL 10/04 0859 0901 Vitamins Sig/Jan Start time Last Medication Dose Route Stop Time Status Admin Folic Acid 2 MG DAILY 09/09 899 AC 09/17 PO 10/09 0859 0900 Multivitamins 1 TAB DAILY 09/09 899 AC 09/17 PO 10/09 0859 0900 Dose Instructions:(1)Sterile Water: DRESSING CHANGE Microbiology:09/15 0515 NASAL: MRSA DNA Surveillance Screen - COMP Portions of this section were scribed by Jill Quintero on 09/17/22 at 1210 Treatment Prophylaxis Treatment ProphylaxisLines: PICC Portions of this section were scribed by Jill Quintero on 09/17/22 at 1210 Diagnosis, Assessment PlanFree Text A P:*MRSA bacteremia-Initial blood cultures from 08/18/2022 positive for MRSA in 2 out of 2 sets.-Repeat blood cultures 08/21/2022 are already positive for MRSA in 2 out of 2 sets, suggesting persistent high-grade bacteremia.-TTE 08/18/2022 negative for any obvious vegetations.-08/28 neg-JIMENA 09/02 neg*Prostatic abscess-s/p transrectal aspiration and unroofing on 08/26-cx MRSA, citrobacter (r-cefazolin) Enterococcus raffinosus (S-amp,pcn, vancomycin), bacteriodes*ERIKA-nephrology following; worsening*Hyponatremia*Diabetic neuropathy*Diabetes mellitus type 2*Hypertension*anemia 09/08-cont on Cefepime and vancomycin til 5/3 for treatment of Prostate abscess-follow esr and crp-EGD today 09/09-on cefepime and vancomycin til 5/3 for treatment of prostate abscess 09/10on cefepime and vancomycin til 5/3 for treatment of prostate abscesscheck esr and crp in am 09/11on cefepime and vancomycin til 5/3 for treatment of prostate abscess; if pt is discharge before 09/24 can change to oral abx 09/12on cefepime and vancomycin til /3 for treatment of prostate abscess; will change to Merrem 500mg Iv Q12hrs and Daptomycin as creat is worsening Merrem and Daptomycin til 5/3creat still elevated: nephrology following Merrem and Daptomycin til 5/3monitor creat. ; improving; nephrology followingfollow esr and crp Merrem and Daptomycin til 5/3monitor creat. ; improving; nephrology followingfollow esr and crpremains afebrile; WBC normalConsultants: cardiology, endocrinology, hospitalist, infectious disease, podiatry Portions of this section were scribed by Jill Quintero on 09/17/22 at 1514 at 2343 RPT #:[id number] OF REPORTPRProgress [id number]:10:00G.[id number] able for patient avpoYNPNYMRXZHQDDU1055-64-90N93:43:52 [facility] 2022-09-17 10:34:00 [id number] [id number]-93F03:34:00 [facility] ([facility])Cardiology Progress NoteREPORT#:[id number] REPORT STATUS: SignedDATE:09/17/22 TIME: 1034 PATIENT: KARMA ROWLAND UNIT #: [id number]#: [id number] [place] [facility] [place]DOB: [birth year] AGE: 56 SEX: M ATTEND: Mj Vences AUTHOR: Rohit Benitez 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 Resting in bed, feels weak today. Blood pressure elevated. Denies chest pain or pressure. Objective GeneralVS/I O:24 hour I O ending at 0700: 09/17 0700 09/16 1900 Intake Total 60 1485 Output Total 2175 1950 Balance -2115 -465 Intake, Oral 60 1485 Number 1 Bowel Movements Number 0 0 Incontinent Voids Number Voids 0 0 Output, Urine 217 1950 Patient 178 lb Weight Weight Bed scale Measurement Method Vital Signs: Date Time Temp Pulse Resp B/P B/P Pulse O2 O2 Flow FiO2 Mean Ox Delivery Rate 09/17 0955 87 19 184/87 119.5 96 Room air 09/17 0636 97.5 87 18 169/84 112.5 97 Room air 09/16 2345 97.5 89 16 155/82 106.2 92 09/16 1838 97.5 92 17 161/83 108.7 95 Room air 09/16 1440 77 17 159/76 103.8 96 Room air PATIENT WEIGHT: Weight (lb): 178Weight (oz): 7.43Weight (kg): 80.950 Medications:Active Meds + DC'd Last 24 HrsFurosemide (LASIX 40 mg/4 mL INJECTION) 40 MG Q8HR IV Hydralazine HCl (APRESOLINE) 50 MG Q8HR PO Furosemide (LASIX 40 mg/4 mL INJECTION) 40 MG Q8HR IV (DC) Prednisone (predniSONE) 80 MG ONCE ONE PO (DC) Furosemide (LASIX 40 mg/4 mL INJECTION) 40 MG Q8HR IV (DC) Hydralazine HCl (APRESOLINE) 25 MG Q8HR PO (DC) Daptomycin (CUBICIN 500MG) 500 MG Q48H IV Sodium Chloride (SODIUM CHLORIDE 0.9%) 50 MLInsulin Human Lispro (HUMALOG) 10 UNIT AC SUBQ Heparin Sodium (HEPARIN 5000 UNITS/ML) 5,000 UNIT Q12HR SUBQ Insulin Glargine (Semglee) 20 UNIT BEDTIME SUBQ Meropenem (MEROPENEM) 500 MG Q8H IV Sterile Water (WATER FOR INJECTION) 10 MLCarvedilol (COREG) 25 MG C BK DIN PO Gabapentin (NEURONTIN) 100 MG Q8HR PO Oxycodone/Acetaminophen (PERCOCET 5/325MG TAB) 2 TAB Q4H PRN PRN PO Folic Acid (FOLIC ACID) 2 MG DAILY PO Multivitamins (TAB-A-MOHAN) 1 TAB DAILY PO Furosemide (LASIX 20MG INJ) 20 MG BLOOD-DOSE BETWEEN IV (CKD) Sodium Chloride (SODIUM CHLORIDE) 10 ML ASDIR IV Pantoprazole Sodium (PROTONIX) 40 MG Q12HR IV Polyethylene Glycol (MIRALAX) 17 GM DAILY PO Sennosides (Senna Lax 8.6 MG TABLET) 8.6 MG DAILY PO Sodium Chloride (SODIUM CHLORIDE) 10 ML ASDIR PRN IV Amitriptyline HCl (ELAVIL) 25 MG BEDTIME PO Zinc Oxide (ZINC OXIDE 30 GM OINTMENT) 1 APPLIC DAILY TOPICAL Sterile Water (WATER FOR IRRIGATION) DRESSING CHANGE ASDIR PRN IRR Insulin Human Lispro (HUMALOG) 0 AC HS SUBQ Dextrose/Water (DEXTROSE 10% IN WATER) 125 ML ASDIR PRN IV (CKD) Dextrose/Water (DEXTROSE 10% IN WATER) 250 ML ASDIR PRN IV (CKD) Glucagon (GLUCAGON) 1 MG ASDIR PRN IM Lidocaine (LIDODERM) 1 PATCH DAILY TOPICAL Acetaminophen (TYLENOL) 650 MG Q6H PRN PRN PO Bisacodyl (DULCOLAX) 10 MG DAILY PRN PRN RECTAL Docusate Sodium (COLACE) 100 MG Q12H PRN PRN PO Hydralazine HCl (APRESOLINE) 10 MG Q6H PRN PRN IV Ondansetron HCl (ZOFRAN) 4 MG Q6H PRN PRN IV Physical ExamGeneral appearance: alert, awake, orientedNeck: no bruit/NL carotids, no JVDCardiovascular: CV assessment: regular rate and rhythm, no ectopy, no gallopRespiratory: clear to auscultation, no distressAbdomen: soft, non-tenderLower extremity: LE assessment: edema, normal temperatureNeuro/DIRECTOR OPERATING ROOM: alert, oriented X 3 Considered stroke alert: noWound/incision: Location:right bkaPsychiatry: normal affect, normal judgment/insight, normal mood ResultsFindings/Data:Laboratory Tests 09/17 09/17 09/17 09/17 09/16 0951 0601 4751 0450 2345 Chemistry Sodium (134 - 147 [...] MG/DL) 219 H 62 L 60 L 148 H Laboratory Tests 09/17 0450 Hematology WBC [...] (Auto) (14.0 - 32.0 %) 10.2 L [place] % (Auto) (4.8 - 9.0 %) 2.9 L Eos % (Auto) (0.3 - 3.7 %) 0.0 L Baso % (Auto) (0.0 - 2.0 %) 0.1 Neut # (Auto) (2.0 - 7.6 x10 3/uL) 7.58 Lymph # (Auto) (1.0 - 3.8 x10 3/uL) 0.91 L [place] # (Auto) (0.1 - 0.8 x10 3/uL) 0.26 Eos # (Auto) (0.0 - 0.2 x10 3/uL) 0.00 Baso # (Auto) (0.0 - 0.2 x10 3/uL) 0.01 Abs Immat Gran (auto) (0.00 - 0.03 x10 3/uL) 0.14 H Add Manual Diff NO Immature Gran % (0.0 - 2.0 %) 1.6 Nucleated RBC % (0 - 0 %) 0.0 Nucleated RBCs # (Man) (0.0 - 0.1 x10 3/uL) 0.00 Laboratory Tests 09/17 0450 Chemistry Magnesium (1.80 - 2.40 mg/dL) 1.97 Diagnosis, Assessment PlanConsultants: cardiology, endocrinology, hospitalist, infectious disease, podiatry Free Text DxA P NotesFree Text DxA P Notes:Impression: 1. Debility2. Infected right foot status post BKA3. Bacteremia4. Diabetes5. Hypertension 6. Anemia7. Acute Diastolic CHF 07/2022: Echocardiogram with normal LVEF, grade 1 diastolic dysfunction, mildly dilated LA, and no significant valvular abnormalities Recommendation: Patient initially presented with DKA and sepsis. Diagnosed with right foot infection, underwent I D, now status post BKA. Patient had persistent bacteremia with MRSA, underwent JIMENA with negative findings of endocarditis. Patient now transferred to rehab for physical therapy. Known cardiac history ofhypertension and hyperlipidemia. Vital signs stable. Echocardiogram with normal LVEF, grade 1 diastolic dysfunction, mildly dilated LA, and no significant valvular abnormalities. Continue to monitor blood pressure trend. Continue wound care and IV antibiotic therapy. Continue PT/OT. Supportive care. 09/04: Patient complaining of shortness of breath, abdominal distention and lowerextremity edema. Renal function and electrolytes stable. Will give one-time dose of IV Lasix 40 mg. Blood pressure stable. Pending abdominal x-ray. Monitor intake and output. Check BMP in the morning. Supportive care. Plan ofcare discussed with patient, RN and Dr. Parham. 09/05: Patient responded well to IV Lasix, good urine output and improvement in shortness of breath. Chest x-ray ordered. Currently on Lasix 20 mg p.o. daily. Continue monitor renal function and electrolytes. Pending lower extremity Doppler for lower extremity edema. Continue PT/OT. Supportive care. Plan of care discussed with patient, RN and Dr. Parham. 09/08: Blood pressure has been elevated, started on Coreg 3.125 mg twice daily. Continue monitor blood pressure trend and adjust medication as needed. Still having left lower extremity edema, venous Doppler negative for DVT. continue gentle diuresis with Lasix 20 mg p.o. daily. Recommend Joan wrap. Patient remains anemic, plan for EGD/colonoscopy today. Supportive care. Plan of care discussed with patient, family, RN and Dr. Parham. 09/09: Patient doing well status post EGD/colonoscopy, negative findings for GI bleed. Blood pressure improving, increased on Coreg to 12.5 mg twice daily. Elevated creatinine noted, nephrology following. No new cardiac complaint. Continue wound care. Continue PT/OT. Supportive care. Plan of care discussed with patient, RN and Dr. Parham. 09/10: Blood pressure remained stable on current regimen of Coreg. Patient continue to have left lower extremity edema. Currently on Lasix 20 mg daily. Creatinine 1.9 today, continue to monitor. Patient's albumin level was 1.3, it is possible that patient's lower extremity edema could be related to hypoalbuminemia leading to third spacing. Continue PT/OT. Supportive care. Plan of care discussed with patient, RN and Dr. Parham. 09/11: Patient doing well from cardiac standpoint. Blood pressure well controlled. Improvement in lower extremity edema with elevating leg while in bed. Creatinine 2.0 today. Denies shortness of breath. Will hold diuretic for now and monitor renal function. Supportive care. Plan of care discussed with patient, RN and Dr. Parham. 09/12: Creatinine remains elevated at 2.4 today, antibiotic regimen also being adjusted. Patient still with lower extremity edema and rales on physical examination. Will check chest x-ray and limited echocardiogram for further evaluation. Check BNP. Continue hold diuretic for now. Supportive care. Planof care discussed with patient, RN and Dr. Parham. 09/15: Repeat echocardiogram showed LVEF of 55 to 60%, no regional wall motion abnormalities, left ventricular diastolic function parameters are indeterminate,mildly dilated LA, and no pericardial effusion. BNP elevated 297. Continue to hold diuretic due to Elevated creatinine, nephrology following and may consider renal biopsy. Continue to monitor fluid volume status. Overall improvement in lower extremity with Joan wrap. Continue physical therapy. Supportive care. Plan of care discussed with patient, RN and Dr. Parham. 09/16: Blood pressure slightly elevated, started on hydralazine 25 mg every 8 hours. Continue carvedilol monitor blood pressure trend. Cr. 2.7 today, continue monitor. Tolerating physical therapy. Euvolemic by physical examination. Supportive care. Plan of care discussed with patient, RN and Dr. Parham. 09/17: Blood pressure remains elevated, likely related to steroid therapy. Hydralazine increased to 50 mg 3 times daily. Nephrology managing diuretic therapy. Continue monitor renal function and electrolytes. Improvement in lower extremity swelling. Patient denies chest pain or shortness of breath. Tolerating PT/OT. Supportive care. Plan of care discussed with patient, RN andDr. Parham. Napoleon Parhma 09/18/22 0859:Diagnosis, Assessment PlanAdditional comments:Agree with above assessment and plan as documented by nurse practitioner, continue current management, will follow. at 1751 at 0903 RPT #:[id number] OF REPORTPRProgress [id number]:34:00G.[id number] able for patient [id number]:51:44 [facility] 2022-09-17 07:13:00 [id number] iE7Nl+FKK3A7SDhwjZnCDVPEsQ/7308-02-80B76:13:00 [facility] ([facility] Progress NoteREPORT#:[id number] REPORT STATUS: SignedDATE:09/17/22 TIME: 07 PATIENT: KARMA ROWLAND UNIT #: [id number]#: [id number] [place] [facility] [place]: [birth year] AGE: 56 SEX: M ATTEND: Mj Vences [facility] AUTHOR: Barrera Ramírez MD * ALL edits or amendments must be made on the electronic/computer document * SubjectiveChief complaint:Infected footHPI:Patient seen and evaluated on 09/09/2022, note started, records reviewed and orders placed on 09/08/2022, 56-year-old male with history of diabetes mellitus type 2, hypertension and peripheral vascular disease who was initially admitted to acute care with altered mental status and right foot infection/gangrene, 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 Patient had persistent anemia requiring blood transfusion. His fecal occult blood was positive and his creatinine was 1.2 and increased to 1.4 today, laboratories today showed hemoglobin 8.5, platelet 231, blood count 9.1, sodium 135, potassium 4.6, CO2 22, BUN 22, creatinine 1.4. Renal consult was requested for evaluation management of elevated BUN and creatinine and if his decreased GFR iscontributing to his anemia. Patient reports:Yes: complaints. Comments:Patient seen and evaluated, HPI no change from initial, feels okay. Review of SystemsConstitutional:Reports: fatigue. Denies: chills, fever. Skin:Reports: swelling. Denies: abrasion, bruising. Allergy/Immun:Denies: hives, itching. Eyes:Denies: redness, discharge. ENT:Denies: ear drainage, ear ringing. Respiratory:Denies: hemoptysis, SOB. Cardiovascular:Denies: chest pain. Objective GeneralVS/I O:Vital Signs: Date Time Temp Pulse Resp B/P B/P Pulse O2 O2 Flow FiO2 Mean Ox Delivery Rate 09/17 0636 [...] Intake Total 60 1485 Output Total 2175 1949 Balance -2115 -465 Intake, Oral 60 1485 Number 1 Bowel Movements Number 0 0 Incontinent Voids Number Voids 0 0 Output, Urine 2174 1949 Patient 80.95 kg Weight Weight Bed scale Measurement Method PATIENT WEIGHT: Weight (lb): 178Weight (oz): 7.43Weight (kg): 80.950 MedicationsActive Meds + DC'd Last 24 HrsFurosemide (LASIX 40 mg/4 mL INJECTION) 40 MG Q8HR IV (DC) Hydralazine HCl (APRESOLINE) 25 MG Q8HR PO Daptomycin (CUBICIN 500MG) 500 MG Q48H IV Sodium Chloride (SODIUM CHLORIDE 0.9%) 50 MLPrednisone (predniSONE) 80 MG ONCE ONE PO (DC) Insulin Human Lispro (HUMALOG) 10 UNIT AC SUBQ Heparin Sodium (HEPARIN 5000 UNITS/ML) 5,000 UNIT Q12HR SUBQ Insulin Glargine (Semglee) 20 UNIT BEDTIME SUBQ Meropenem (MEROPENEM) 500 MG Q8H IV Sterile Water (WATER FOR INJECTION) 10 MLCarvedilol (COREG) 25 MG C BK DIN PO Gabapentin (NEURONTIN) 100 MG Q8HR PO Oxycodone/Acetaminophen (PERCOCET 5/325MG TAB) 2 TAB Q4H PRN PRN PO Ferric Sodium Gluconate Complex (FERRLECIT) 125 MG DAILY IV (DC) Sodium Chloride (SODIUM CHLORIDE 0.9%) 100 MLFolic Acid (FOLIC ACID) 2 MG DAILY PO Multivitamins (TAB-A-MOHAN) 1 TAB DAILY PO Furosemide (LASIX 20MG INJ) 20 MG BLOOD-DOSE BETWEEN IV (CKD) Sodium Chloride (SODIUM CHLORIDE) 10 ML ASDIR IV Pantoprazole Sodium (PROTONIX) 40 MG Q12HR IV Polyethylene Glycol (MIRALAX) 17 GM DAILY PO Sennosides (Senna Lax 8.6 MG TABLET) 8.6 MG DAILY PO Sodium Chloride (SODIUM CHLORIDE) 10 ML ASDIR PRN IV Amitriptyline HCl (ELAVIL) 25 MG BEDTIME PO Zinc Oxide (ZINC OXIDE 30 GM OINTMENT) 1 APPLIC DAILY TOPICAL Sterile Water (WATER FOR IRRIGATION) DRESSING CHANGE ASDIR PRN IRR Insulin Human Lispro (HUMALOG) 0 AC HS SUBQ Dextrose/Water (DEXTROSE 10% IN WATER) 125 ML ASDIR PRN IV (CKD) Dextrose/Water (DEXTROSE 10% IN WATER) 250 ML ASDIR PRN IV (CKD) Glucagon (GLUCAGON) 1 MG ASDIR PRN IM Lidocaine (LIDODERM) 1 PATCH DAILY TOPICAL Acetaminophen (TYLENOL) 650 MG Q6H PRN PRN PO Bisacodyl (DULCOLAX) 10 MG DAILY PRN PRN RECTAL Docusate Sodium (COLACE) 100 MG Q12H PRN PRN PO Hydralazine HCl (APRESOLINE) 10 MG Q6H PRN PRN IV Ondansetron HCl (ZOFRAN) 4 MG Q6H PRN PRN IV Physical ExamGeneral appearance: alert, no acute distressHead/eyes: atraumatic, normocephalicENT: normal noseNeck: non-tender, supple/no meningismusCardiovascular: normal heart sounds, no rubRespiratory: aerating well, symmetric expansionAbdomen: non-tender, softGenitourinary: no flank painExtremities: non-tender, no edemaMusculoskeletal: no CVA tenderness, no tendernessNeuro/DIRECTOR OPERATING ROOM: alert, 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 Considered stroke alert: noSkin: dry, intact ResultsFindings/Data:Laboratory Tests 09/17 09/17 09/16 09/16 09/16 0601 [...] 09/15 09/15 09/14 1640 1154 0519 0515 1931Chemistry Sodium (134 - 147 mEq/L) 132 L [...] Total Creatine Kinase (46 - 171 26 LUnits/L) Albumin (3.4 - 5.0 g/dL) 1.50 L Prealbumin (16.0 - 40.0 mg/dL) 8.0 L 09/14 09/14 09/14 1543 1130 0736 Chemistry POC Glucose (70 - 110 MG/DL) 60 L 137 H 290 H Laboratory Tests 09/16 09/15 0455 0515 Hematology WBC (4.5 - 11.0 [...] (14.0 - 32.0 %) 18.6 11.3 L [place] % (Auto) (4.8 - 9.0 %) 6.7 3.2 L Eos % (Auto) (0.3 - 3.7 %) 0.2 L 0.0 L Baso % (Auto) (0.0 - 2.0 %) 0.1 0.1 Neut # (Auto) (2.0 - 7.6 x10 3/uL) 6.99 7.35 Lymph # (Auto) (1.0 - 3.8 x10 3/uL) 1.77 0.98 L [place] # (Auto) (0.1 - 0.8 x10 3/uL) 0.64 0.28 Eos # (Auto) (0.0 - 0.2 x10 3/uL) 0.02 0.00 Baso # (Auto) (0.0 - 0.2 x10 3/uL) 0.01 0.01 Abs Immat Gran (auto) (0.00 - 0.03 x10 3/uL) 0.10 H 0.04 H Add Manual Diff NO NO Immature Gran % (0.0 - 2.0 %) 1.0 0.5 Nucleated RBC % (0 - 0 %) 0.0 0.0 Nucleated RBCs # (Man) (0.0 - 0.1 x10 3/uL) 0.00 0.00 Laboratory Tests 09/15 1304 Urines Urine Color (YEL/STRAW) YELLOW Urine Appearance (CLEAR) SL CLOUDY Urine pH (5.0 - 7.0) 5.0 Ur Specific [place] (1.005 - 1.030) 1.013 Urine Protein (NEGATIVE) [...] MG/DL) 60 L 148 H Diagnosis, Assessment PlanFree Text A P:Patient seen and evaluated, discussed with care team, images and laboratories reviewed.Diabetes mellitus: Insulin: Monitor blood sugar closely and adjust medications as needed, followed by endocrinology.Hypertension: Blood pressure is not well controlled, increase Coreg to 12.5 mg p.o. twice daily: Monitor blood pressure closely and adjust medications as neededRight foot gangrene/infection status post right BKAAnemia: Status post EGD and colonoscopy which were negative for active GI bleeding, patient had work-up in July 2022 which showed very high B12, normal folate, very low iron saturation but very high ferritin which was likely relatedto his infection, likely patient is very iron deficient, will repeat lab and give IV iron if needed. We will check serum immunofixation.Acute kidney injury: We will check renal bladder ultrasound, check postvoid residual, check urine protein creatinine ratioHypomagnesemia: We will supplement09/10/2022 laboratory this morning showed sodium 135, potassium 4.2, CO2 21, BUN 25, creatinine 1.9 continues to worsen, etiology unclear, however his development some eosinophilia not sure if he is developing AIN, suggest changingcefepime to a different class of antibiotic if possible, will check renal bladder ultrasound09/11/2022 laboratory this morning showed sodium 134, potassium 4.3, CO2 22, BUN 26, creatinine 2 up from 1.9, hopefully creatinine is plateauing, renal ultrasound negative.09/12/2022 laboratory this morning showed sodium 134, potassium 4.2, CO2 20, BUN 31, creatinine 2.4 continues to worsen, discussed with ID, AIN is probably the etiology of the unexplained deterioration of his renal function, antibiotics to be adjusted by infectious disease, will give Solu-Medrol 125 mg IV daily for 3 days. Significant lower extremity edema, will start Lasix 20 mg p.o. twice daily.09.13.22: pt was seen and examined. Very thirsty. serum creatinine is worsening today. Vancomycin was stopped yesterday and Solu medrol was started. Mild hypovolemic hyponatremia. Will DC lasix and monitor his renal functions. BP is well controlled. 09.14.22: pt was seen and examined. Feels better but still thirsty. I stopped hislasix. will start NS at 75 cc for one Leter only. serum creatinine is improving.Received three doses of Solu Medrol a well. BP is on the higher side, likely secondary to steroids. will monitor for now. mild hypovelmic hyponatremia. also could be secondary to hyperglycemia. 09/15/2022 we will give additional dose of Solu-Medrol 125 mg IV today, laboratory this morning showed sodium 132, potassium 4.7, CO2 17, chloride 105, BUN 38, creatinine 2.9, glucose 312, hemoglobin 8.2, platelet 341, blood count 8.7, needs better blood sugar control, if creatinine does not start improving the next couple days will plan for kidney biopsy09/16/2022 laboratory this morning showed sodium 135, potassium 4.5, CO2 20, BUN 60, creatinine 2.7, better down from 2.9, hemoglobin 7.6, platelet 360, blood count 9.5, will give prednisone 80 mg p.o. today, blood pressure is elevated, will add hydralazine 25 mg p.o. 3 times daily, scrotal and LE swelling will giveLasix 40 mg IV x blood pressure still elevated, will increase hydralazine to 50 mg p.o.3 times daily, will give 80 mg of prednisone today, urine output with Lasix 4125, laboratory this morning showed sodium 136, potassium 4.5, CO2 21, BUN 66, creatinine 2.4 down from 2.7, will give 3 more doses of IV Lasix 40 mg every 8 hoursConsultants: cardiology, endocrinology, hospitalist, infectious disease, podiatry at 0925 RPT #:[id number] OF REPORTPRProgress [id number]:13:00G.[id number] able for patient fcosTWPWQAJMNAIGGX1207-17-13J95:25:27 [facility] 2022-09-17 07:13:00 [id number] WKGuwKWg/U5+OeIs8tO0Eizm1uJFB mTlZKbNCPEe7Co4w3x5p9JMqH2L6529-43-04J33:13:00 [facility] ([facility])Rehab Progress NoteREPORT#:[id number] REPORT STATUS: SignedDATE:09/17/22 TIME: 0713 PATIENT: KARMA ROWLAND UNIT #: [id number]#: [id number] [address] [birth year] AGE: 56 SEX: M ATTEND: Mj Vences MDADM AUTHOR: Guero Candelaria * ALL edits or amendments must be made on the electronic/computer document * SubjectiveChief complaint:Rehab follow-upFeels good todayMaking good progressStill has edema of BLE and scrotumEating 75-100% at bedside+ BMDenies DICKENS/N/V/D/CP14 systems reviewed and neg. except that above.History of present illness:56 yo HAM with long h/o DM, and HTN who was admitted for fever, flulike symptomsand altered mental status on 08/18. He was doing well until about 3 days prior toadmission when he noted blister to have formed on the dorsum of his foot. His foot started progressively getting more swollen and the blisters started enlarging and extending to his lateral foot and ankle. He started feeling weak and nauseated. He was noted to have altered mentation and was brought to our ER.He was noted to be in DKA with Blood sugars greater than 600. He was seen by podiatry and surgery for BLE wounds and infection. He was treated in ICU for sepsis and DKA. He underwent incisional and excisional debridement of right footand right ankle by podiatry. Patient also found to have prostate abscess underwent transrectal ultrasound aspiration of abscess and transurethral resection of prostate and unroofing of abscess by urology Dr. Du. Endocrinology treated the DKA and blood sugars much improved. Patient's right foot was not salvageable and patient underwent right BKA by Dr. LEROY on 08/28. Patient blood cultures showed MRSA. Patient continued on antibiotics as per ID. MRI of the pelvis and foot completed. Patient required multiple PRBCs for anemia. Patient was found to have a possible small hematoma of the left calf onultrasound. He complains of pain and swelling of the left ankle. Patient hemodynamically stable and plans are to be transferred to stepdown unit. He is on heparin subcu for VTE. After surgery he is now being mobilized by PT and OT.He is wearing a maxine-tech orthotic for right knee/BKA protection. Prior to admission the patient was independent living in a single-story house with his spouse with a few steps up to front and back door. 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 is at bedside. Patient denies nausea, vomiting, fever, chills, chest pain, shortness of breath with dizziness. He is requiring IV Dilaudid for pain control. Mental status back to baseline. Pt is progressing slowly with therapy d/t weakness and pain, self care deficit, decreased endurance and balance, and decreased functional mobility. Pt requiring acute inpt rehab for multidisciplinary team of nursing, therapy, and physicians. Pt iswilling and able to partici- kathleen in 3 hr/day inpt rehab to d/c home safely. Pt's prior level of function was independent. Objective GeneralVS:Vital Signs: Date Time Temp Pulse Resp B/P B/P Pulse O2 O2 Flow FiO2 Mean Ox Delivery Rate 09/17 0636 97.5 87 18 169/84 112.5 97 Room air 09/16 2345 97.5 89 16 155/82 106.2 92 09/16 1838 97.5 92 17 161/83 108.7 95 Room air 09/16 1440 77 17 159/76 103.8 96 Room air 09/16 0722 97.3 77 18 159/79 105.3 96 Room air PATIENT WEIGHT: Weight (lb): 178Weight (oz): 7.43Weight (kg): 80.950 Medications:Active Meds + DC'd Last 24 HrsFurosemide (LASIX 40 mg/4 mL INJECTION) 40 MG Q8HR IV (DC) Hydralazine HCl (APRESOLINE) 25 MG Q8HR PO Daptomycin (CUBICIN 500MG) 500 MG Q48H IV Sodium Chloride (SODIUM CHLORIDE 0.9%) 50 MLPrednisone (predniSONE) 80 MG ONCE ONE PO (DC) Insulin Human Lispro (HUMALOG) 10 UNIT AC SUBQ Heparin Sodium (HEPARIN 5000 UNITS/ML) 5,000 UNIT Q12HR SUBQ Insulin Glargine (Semglee) 20 UNIT BEDTIME SUBQ Meropenem (MEROPENEM) 500 MG Q8H IV Sterile Water (WATER FOR INJECTION) 10 MLCarvedilol (COREG) 25 MG C BK DIN PO Gabapentin (NEURONTIN) 100 MG Q8HR PO Oxycodone/Acetaminophen (PERCOCET 5/325MG TAB) 2 TAB Q4H PRN PRN PO Ferric Sodium Gluconate Complex (FERRLECIT) 125 MG DAILY IV (DC) Sodium Chloride (SODIUM CHLORIDE 0.9%) 100 MLFolic Acid (FOLIC ACID) 2 MG DAILY PO Multivitamins (TAB-A-MOHAN) 1 TAB DAILY PO Furosemide (LASIX 20MG INJ) 20 MG BLOOD-DOSE BETWEEN IV (CKD) Sodium Chloride (SODIUM CHLORIDE) 10 ML ASDIR IV Pantoprazole Sodium (PROTONIX) 40 MG Q12HR IV Polyethylene Glycol (MIRALAX) 17 GM DAILY PO Sennosides (Senna Lax 8.6 MG TABLET) 8.6 MG DAILY PO Sodium Chloride (SODIUM CHLORIDE) 10 ML ASDIR PRN IV Amitriptyline HCl (ELAVIL) 25 MG BEDTIME PO Zinc Oxide (ZINC OXIDE 30 GM OINTMENT) 1 APPLIC DAILY TOPICAL Sterile Water (WATER FOR IRRIGATION) DRESSING CHANGE ASDIR PRN IRR Insulin Human Lispro (HUMALOG) 0 AC HS SUBQ Dextrose/Water (DEXTROSE 10% IN WATER) 125 ML ASDIR PRN IV (CKD) Dextrose/Water (DEXTROSE 10% IN WATER) 250 ML ASDIR PRN IV (CKD) Glucagon (GLUCAGON) 1 MG ASDIR PRN IM Lidocaine (LIDODERM) 1 PATCH DAILY TOPICAL Acetaminophen (TYLENOL) 650 MG Q6H PRN PRN PO Bisacodyl (DULCOLAX) 10 MG DAILY PRN PRN RECTAL Docusate Sodium (COLACE) 100 MG Q12H PRN PRN PO Hydralazine HCl (APRESOLINE) 10 MG Q6H PRN PRN IV Ondansetron HCl (ZOFRAN) 4 MG Q6H PRN PRN IV Functional ProgressFunctional progress:PT daily note comment: S. PATIENT REPORTED INCREASED SWELLIN TO ABDOMEN AND SCROTUM, STATES HE HAS NOT BEEN THIS SWOLLEN EVER. REPORTS GETTING STRONGER O. PATIENT WORKED ON BED MOB, ABLE TO SIT UP EOB WITH AMADO,W ORKED ON ROLLING AND SITTING UP EOB WITH USE OF RAILS. PATIENT WORKED ON SQUAT PIVOT TRANSFER WITH SET UP TO LEFT AND CGA FOR STEADYING. PATIENT WORKED ON WC MOB WITH MOD I 200 FEET . IN THE GYM PATIENT WORKED ON TRANSFER TO MOVEO WITH MIN A FOR STAND PIVOT, WORKED ON MOVEO LEG PRESS AT 7.5 INCLINE, AT 6 LEVEL. 10 REPSX 5 SETS. PATIENT WORKED ON SQUAT PIVOT TRANSFERS TO WITH CGA FROM HIGHER SURFACE. THIS PM PATIENT WORKED ON BED MBO TO EOB WITH AMADO, APPLIED MAXINE TECH TO RLE AND ABLE TO TRANSFER SQUAT PIVOT WITH CGA TO LEFT SIDE. PATIENT WORKED ON WC MOB TO GYM, SIT TO STANDS IN PARALLEL BARS WITH MIN A. PATIENT GIVEN CUES TO SCOOT TO EDGE OF WC, MOVE TRUNK FORARD AND PUSH OF WC WITHMIN A TO STAND, PATIENT WORKED ON STI TO STANDS X 5, WORKED ON STAND PIVOT WITH PARALLEL BARS X 3 WITH CGA FOR SAFETY.PATIENT WORKED ON MOVEO AT 10 DEGREE INCLINE. 10 REPS X 5SETS. PATIENT WORKED ON STAND PIVOT TRANSFERS TO WITH CGA FOR SAFETY AND SET UP OF SLIDING BOARD, EDUCATED SPOUSE ON USE OF SB, SPOUSE WAS ABLE TO SE TUP SB AND ASSIST PATIENT WITH TRANSFERS TO BED. PATIENT WORKED ON JOAN WRAP FIGURE 8 OF R STUMP WITH ASSISTANCE X 3 TIMES. EDUCATED ON FIGURE 8, AVOID EXCESSIVE PRESSURE AND WRINKLES.PATIENT LEFT SUPINE IN BED WITH CALL BUTTON IN REACH AND ALARM ENGAGED A. PATIENT IS PROGRESSING WITH PT, REQUIRES CGA FOR TRANSFERS USING SB, WC MOB AMADO, SPOUSE IS ASSISTING WITH TRANSFERS AND JOAN WRAP OF STUMP, P,C ONTINUE WITH POC WITH AN EMPHASIS ON TRANSFERS AND WC MOB CONTINUE WITH POC Special rehabilitation precautions: Diet Safety/fall Isolation contact Non-weight bearing RLE R BKA Patient had a fall or an intercepted fall this shift: No Anticipated discharge equipment: Drop arm bedside commode sliding board Barriers to discharge: Fall risk Endurance Pain Caregiver NWB RLE DIFFICULTY WITH TRANSFERS Strategies for D/C barriers: Fall recovery training Evaluate pain control Scheduled rest breaks LE EX WC MOB TRANSFER TRAINING CAREGIVER TRAINING Physical ExamGeneral appearance: alert, awakePsych: alert, normal affect, oriented x 3HEENT: anicteric, sclera clearNeck: supple, no JVDCardiovascular: S1/S2, no murmurRespiratory: aerating well, clear bilaterallyAbdomen: bowel sounds present, non-distended, soft, non-tenderSkin: no rash, R BKA HEALING. L ankle/foot wrapped with kerlixMusculoskeletal - general: Musculoskeletal - general: swelling (LLE, calve NT, homans neg), BUE 5/5, LLE4/5, R hip 3-Neuro/DIRECTOR OPERATING ROOM: alert, oriented X 3, CNII-XII intact ResultsFindings/Data:Laboratory Tests 09/17 09/17 09/17 09/17 09/17 1027 [...] MG/DL) 291 H 219 H 62 L 60 L 148 H 09/16 09/16 09/15 09/15 [...] 09/15 09/15 09/14 09/14 09/14 0519 0515 1 1543 1130 Chemistry Sodium (134 - 147 [...] 40.0 mg/dL) 8.0 L Laboratory Tests 09/17 0455 0515 Hematology WBC (4.5 - 11.0 [...] 32.0 %) 10.2 L 18.6 11.3 L [place] % (Auto) (4.8 - 9.0 %) 2.9 L 6.7 3.2 L Eos % (Auto) (0.3 - 3.7 %) 0.0 L 0.2 L 0.0 L Baso % (Auto) (0.0 - 2.0 %) 0.1 0.1 0.1 Neut # (Auto) (2.0 - 7.6 x10 3/uL) 7.58 6.99 7.35 Lymph # (Auto) (1.0 - 3.8 x10 3/uL) 0.91 L 1.77 0.98 L [place] # (Auto) (0.1 - 0.8 x10 3/uL) 0.26 0.64 0.28 Eos # (Auto) (0.0 - 0.2 x10 3/uL) 0.00 0.02 0.00 Baso # (Auto) (0.0 - 0.2 x10 3/uL) 0.01 0.01 0.01 Abs Immat Gran (auto) (0.00 - 0.03 x10 3/uL) 0.14 H 0.10 H 0.04 H Add Manual Diff NO NO NO Immature Gran % (0.0 - 2.0 %) 1.6 1.0 0.5 Nucleated RBC % (0 - 0 %) 0.0 0.0 0.0 Nucleated RBCs # (Man) (0.0 - 0.1 x10 3/uL) 0.00 0.00 0.00 Laboratory Tests 09/16 0455 Immunology Complement C3 (82 - 167 mg/dL) 121 Complement C4 (12 - 38 mg/dL) 31 Laboratory Tests 09/15 1304 Urines Urine Color (YEL/STRAW) YELLOW Urine Appearance (CLEAR) SL CLOUDY Urine pH (5.0 - 7.0) 5.0 Ur Specific [place] (1.005 - 1.030) 1.013 Urine Protein (NEGATIVE) [...] Surveillance Screen - COMP NASAL Diagnosis, Assessment PlanFree Text A P:Assessment:Severe Gas gangrene right foot and right ankle associated with osteomyelitis andnecrotizing fasciitisS/p surgical debridement and washout08/28: S/p right SATHYAA-Dr. LeroySignificant impairment in self-care, ADLs and functional mobilityImpaired mobility and gaitAcute postoperative pain right BKADiabetic polyneuropathyDKA, DM 2, poorly controlled, A1c greater than 14PADMRSA bacteremia/sepsis-treated on acuteAKISevere hyponatremia-resolvedHTNAcute on chronic anemia requiring multiple transfusions, possible GI bleedLeft calf hematomaEdema and clinical arthritis left ankleEarly decubitus to left heel/DTI dorsal left midfootProstatic abscess 08/26: S/p transrectal ultrasound aspiration of abscess and transurethral resection of prostate and unroofing of abscess09/12: Echo: EF 55-59%, grade 1 diastolic dysfunction09/02: JIMENA negative for vegetationMRSA OF NARES09/08:s/p EGD and colonoscopy. EGD showed mild gastritis. Colonoscopy showed rectal polyp that was resected by snare (tubular adenoma)-repeat colonoscopy in 5 years Plan:-PLOF: Independent with transfers and gait-Amputee rehab program-Continue PT and OT-15/12 rehabilitation nursing care.-Case management for safe discharge planning.-Decubitus prevention-Early decubitus to left heel/DTI dorsal left midfoot-zinc oxide to the foot, foam, offloading, podiatry managing-DVT prophylaxis-subcutaneous heparin-Strict fall and safety precautions-Work on bed mobility, transfer training, ADLs, pre-gait and gait exercises-Increase endurance and strength-Monitor pain with therapies-OOB to chair-Monitor p.o. intake and nutrition, albumin 1.3, prealbumin less than 5, dietaryconsultation, protein supplements to promote ejteptl-Uipqsnop-E5z 14, tight glycemia control- endocrine on board, insulin adjustments-Endocrinology, ID, podiatry, cardiology, IM consulted-Pain management adjusting pain medications-Anemia, patient required multiple units of PRBCs on acute, FOBT positive-IV Protonix-consult GI-serial H H-no evidence of gross bleeding-discussed with Dr. TrinidadEitxodgg-Adtsjiqibycl-iqegeyqzg pktwcimt-ENC-acliew-CW Senokot and MiraLAX, DSP-Right TNS-tvjrqic-gpoqhocn resolved, dressings changed wtdjo-poxqcgo-mvwxtgof SEP-OOEP-WPQH OF NARES on Bactroban protocol-LLE edema-venous Doppler with complex heterogeneous hypoechoic fluid collectionin the left calf region measuring 8.4, 2.8, 2.5 cm suggestive of hematoma. On low-dose Lasix. Joan wrap LLE-LE edema could be related to hypoalbuminemia leading to third spacing-edema improving-Generalized edema-some shortness of breath and abdominal distention-cardiology gave a dose of IV Lasix-monitor urine output, daily weights-SOB resolved-09/05-venous Doppler of LLE-negative for DVT-Joan wrap dressing and ujsfetsqh-Xpskxe-gunmkpnxgn 8.3, 7.7, 8.2, transfused 2 units of PRBC on 09/05-09/08: s/p EGD and colonoscopy. EGD showed mild gastritis. Colonoscopy showed rectal polyp that was resected by snare. Anemia likely secondary to chronic kidney disease. Consult renal.-Pathology of polyp came back as tubular adenoma. recommend repeating colonoscopy in 5 years as per GI-Consider video capsule endoscopy as outpt if evidence of dropping H/H-Renal ultrasound negative-09/16/2022 laboratory this morning showed sodium 135, potassium 4.5, CO2 20, BUN60, creatinine 2.7, better down from 2.9, hemoglobin 7.6, platelet 360, blood count 9.5, will give prednisone 80 mg p.o. today, blood pressure is elevated, will add hydralazine 25 mg p.o. 3 times daily, scrotal and LE swelling will giveLasix 40 mg IV x 3-as per renal-on Merrem and Daptomycin til 09/24 as per ID-Lasix as per nephrology-Completed Dfgl-Mynqkc-Mjxbg LLE swelling (not new) and low albumin. may benefit from albumin infusion+ Sdynn-QWI-chigentvh opacities in the right mid and lower lung field. Improved left retrocardiac opacities-BNP 297-09/12: Echo-EF 55-60%, indeterminate diastolic function parameters as per cardio-09/16: Blood pressure slightly elevated, started on hydralazine 25 mg every 8 hours. Continue carvedilol monitor blood pressure trend. Cr. 2.7 today, continue monitor. Tolerating physical therapy. Euvolemic by physical examination as per cardio. -Advance therapies as tolerated-discussed treatment plan with patient and -Patient progressing well in therapy. Patient with improved transfers and endurance.-Car transfer training 09/23-Discussed with patient and about renal issues that seem to be improving PM RPlease see team note.Plan and goals discussed with the patient. I agree with the teams findingELOS- [09/24] on IV antibiotics until 3DC-Home with -Home healthDME-bedside commode, sliding board, wheelchair, drop arm bedside commode Total time 33 minutes greater than 50% of the time spent examining patient, discussing with patient about slight improvement in renal function, on steroids,medical issues, anemia, amputee rehab, discharge plans, rehab plan of care, goals, therapies, progress, labs, medications. EMR and MAR is reviewed. All questions answeredRehab attestation:Face to face exam completed. Treatment plan discussed with patient. Meets continued stay criteria. Agree with interdisciplinary treatment plan. at 1847 RPT #:[id number] OF REPORTPRProgress [id number]:13:00G.[id number] able for patient mvrvRHSIUEOHUOJQSZ2264-68-92A65:48:06 [facility] 2022-09-16 20:09:00 [id number] kBfSV/UaLQYrKJws4O3qtpCZ0KO2141-12-50U61:09:00 [facility])Podiatry Progress NoteREPORT#:[id number] REPORT STATUS: SignedDATE:09/16/22 TIME: 2008 PATIENT: KARMA ROWLAND UNIT #: [id number]#: [id number] [address] [birth year] AGE: 56 SEX: M ATTEND: Mj Vences [facility] AUTHOR: Liam Pedersen DPM * ALL edits or amendments must be made on the electronic/computer document * SubjectiveChief complaint:left heel ulcer. left ankle painPatient reports: no confusion, no cough, no fatigue, no fever, no headache, no itching Objective GeneralVS:Last Documented: Result Date Time Pulse Ox 95 09/16 1837 B/P 161/83 09/16 1837 B/P Mean 108.7 09/16 1837 O2 Delivery Room air 09/16 1837 Temp 36.4 09/16 1837 Pulse 92 09/16 1837 Resp 17 09/16 1837 O2 Flow Rate 2 09/08 1322 PATIENT WEIGHT: Weight (lb): 165Weight (oz): 5.55Weight (kg): 75.000 Medications:Active Meds + DC'd Last 24 HrsFurosemide (LASIX 40 mg/4 mL INJECTION) 40 MG Q8HR IV Hydralazine HCl (APRESOLINE) 25 MG Q8HR PO Daptomycin (CUBICIN 500MG) 500 MG Q48H IV Sodium Chloride (SODIUM CHLORIDE 0.9%) 50 MLPrednisone (predniSONE) 80 MG ONCE ONE PO (DC) Insulin Human Lispro (HUMALOG) 10 UNIT AC SUBQ Heparin Sodium (HEPARIN 5000 UNITS/ML) 5,000 UNIT Q12HR SUBQ Insulin Glargine (Semglee) 20 UNIT BEDTIME SUBQ Meropenem (MEROPENEM) 500 MG Q8H IV Sterile Water (WATER FOR INJECTION) 10 MLCarvedilol (COREG) 25 MG C BK DIN PO Gabapentin (NEURONTIN) 100 MG Q8HR PO Oxycodone/Acetaminophen (PERCOCET 5/325MG TAB) 2 TAB Q4H PRN PRN PO Ferric Sodium Gluconate Complex (FERRLECIT) 125 MG DAILY IV (DC) Sodium Chloride (SODIUM CHLORIDE 0.9%) 100 MLFolic Acid (FOLIC ACID) 2 MG DAILY PO Multivitamins (TAB-A-MOHAN) 1 TAB DAILY PO Furosemide (LASIX 20MG INJ) 20 MG BLOOD-DOSE BETWEEN IV (CKD) Sodium Chloride (SODIUM CHLORIDE) 10 ML ASDIR IV Pantoprazole Sodium (PROTONIX) 40 MG Q12HR IV Polyethylene Glycol (MIRALAX) 17 GM DAILY PO Sennosides (Senna Lax 8.6 MG TABLET) 8.6 MG DAILY PO Sodium Chloride (SODIUM CHLORIDE) 10 ML ASDIR PRN IV Amitriptyline HCl (ELAVIL) 25 MG BEDTIME PO Zinc Oxide (ZINC OXIDE 30 GM OINTMENT) 1 APPLIC DAILY TOPICAL Sterile Water (WATER FOR IRRIGATION) DRESSING CHANGE ASDIR PRN IRR Insulin Human Lispro (HUMALOG) 0 AC HS SUBQ Dextrose/Water (DEXTROSE 10% IN WATER) 125 ML ASDIR PRN IV (CKD) Dextrose/Water (DEXTROSE 10% IN WATER) 250 ML ASDIR PRN IV (CKD) Glucagon (GLUCAGON) 1 MG ASDIR PRN IM Lidocaine (LIDODERM) 1 PATCH DAILY TOPICAL Acetaminophen (TYLENOL) 650 MG Q6H PRN PRN PO Bisacodyl (DULCOLAX) 10 MG DAILY PRN PRN RECTAL Docusate Sodium (COLACE) 100 MG Q12H PRN PRN PO Hydralazine HCl (APRESOLINE) 10 MG Q6H PRN PRN IV Ondansetron HCl (ZOFRAN) 4 MG Q6H PRN PRN IV I O:24 hour I O ending at 0700: 09/16 0700 09/15 1900 Intake Total 200 1060 Output Total 1600 1400 Balance -1400 -340 Intake, Oral 200 1060 Number 0 0 Incontinent Voids Number Voids 0 0 Output, Urine 1600 1400 Dietitian nutrition assessmentThe data set between the solid lines has been imported from the dietitian's assessment. BMI Calculated: 26.7Nutrition related diagnosis: Nutrition diagnosis details: Nutrition problem: Altered nutrition labsNutrition etiology: DMNutrition signs and symptoms: HYPER/HYPOGLYCEMIA, A1C >14Nutrition prescription: CONTINUE DM DIETDietitian name: You Palmer, DIETAssessment completed: 09/09/22 Physical ExamGeneral appearance: alert, awake, orientedWound/incision: Location:left foot Site condition: dp/pt 2/4 left. light touch decreased left foot. ulcer starting at posterior left heel. eccymosis noted. early likely stage 1. left ankle has edema. pain with aggressive ROM left ankle. dorsal left midfoot is starting to have tissue injuryLE vascular pulse assess:2+ L posterior tibialis, 2+ L dorsalis pedis Considered stroke alert: noUlcer: Location: DTI dorsal left midfoot ResultsFindings/Data:Laboratory Tests: 09/16 09/16 09/16 09/16 09/16 1931 1549 1441 1110 0553 Chemistry POC Glucose (70 - 110 MG/DL) 219 H 62 L 60 L 148 H 195 H 09/16 0455 Chemistry Sodium [...] % (Auto) (14.0 - 32.0 %) 18.6 [place] % (Auto) (4.8 - 9.0 %) 6.7 Eos % (Auto) (0.3 - 3.7 %) 0.2 L Baso % (Auto) (0.0 - 2.0 %) 0.1 Neut # (Auto) (2.0 - 7.6 x10 3/uL) 6.99 Lymph # (Auto) (1.0 - 3.8 x10 3/uL) 1.77 [place] # (Auto) (0.1 - 0.8 x10 3/uL) 0.64 Eos # (Auto) (0.0 - 0.2 x10 3/uL) 0.02 Baso # (Auto) (0.0 - 0.2 x10 3/uL) 0.01 Abs Immat Gran (auto) (0.00 - 0.03 x10 3/uL) 0.10 H Add Manual Diff NO Immature Gran % (0.0 - 2.0 %) 1.0 Nucleated RBC % (0 - 0 %) 0.0 Nucleated RBCs # (Man) (0.0 - 0.1 x10 3/uL) 0.00 Diagnosis, Assessment PlanFree Text A P:DM with neuropathyearly decub ulcer left heelOA/edema left ankleearly ulcer/DTI dorsal left midfoot zinc oxide to foot and heelfoam to heelon IV abxon PO gabapentinoffloading bootace wraps to ankle, only when OOB with therapy. zinc oxide interchange with bactroban ( applied to dorsal left midfoot early ulcer)Consultants: cardiology, endocrinology, hospitalist, infectious disease, podiatry at 2009 RPT #:[id number] OF REPORTPRProgress [id number]:09:00G.[id number] able for patient [id number]:10:56 [facility] 2022-09-16 17:23:00 [id number] 2XxiUorVsALf3oCSF6psjys26GX9708-87-40U05:23:00 [facility])Endocrinology Progress NoteREPORT#:[id number] REPORT STATUS: SignedDATE:09/16/22 TIME: 1722 PATIENT: KARMA ROWLAND UNIT #: [id number]#: [id number] [address] [birth year] AGE: 56 SEX: M ATTEND: Mj Vences MDADM AUTHOR: Braxton Chapin MD * ALL edits or amendments must be made on the electronic/computer document * SubjectivePatient reports: no complaints Objective GeneralVS:Last Documented: Result Date Time Pulse Ox 96 09/16 1440 B/P 159/76 09/16 1440 B/P Mean 103.8 09/16 1440 O2 Delivery Room air 09/16 1440 Pulse 77 09/16 1440 Resp 17 09/16 1440 Temp 36.3 09/16 0722 O2 Flow Rate 2 09/08 1322 PATIENT WEIGHT: Weight (lb): 165Weight (oz): 5.55Weight (kg): 75.000 Medications:Active Meds + DC'd Last 24 HrsFurosemide (LASIX 40 mg/4 mL INJECTION) 40 MG Q8HR IV Hydralazine HCl (APRESOLINE) 25 MG Q8HR PO Daptomycin (CUBICIN 500MG) 500 MG Q48H IV Sodium Chloride (SODIUM CHLORIDE 0.9%) 50 MLPrednisone (predniSONE) 80 MG ONCE ONE PO (DC) Insulin Human Lispro (HUMALOG) 10 UNIT AC SUBQ Heparin Sodium (HEPARIN 5000 UNITS/ML) 5,000 UNIT Q12HR SUBQ Insulin Glargine (Semglee) 20 UNIT BEDTIME SUBQ Meropenem (MEROPENEM) 500 MG Q8H IV Sterile Water (WATER FOR INJECTION) 10 MLInsulin Glargine (Semglee) 14 UNIT BEDTIME SUBQ (DC) Insulin Human Lispro (HUMALOG) 7 UNIT AC SUBQ (DC) Carvedilol (COREG) 25 MG C BK DIN PO Gabapentin (NEURONTIN) 100 MG Q8HR PO Oxycodone/Acetaminophen (PERCOCET 5/325MG TAB) 2 TAB Q4H PRN PRN PO Ferric Sodium Gluconate Complex (FERRLECIT) 125 MG DAILY IV (DC) Sodium Chloride (SODIUM CHLORIDE 0.9%) 100 MLFolic Acid (FOLIC ACID) 2 MG DAILY PO Multivitamins (TAB-A-MOHAN) 1 TAB DAILY PO Furosemide (LASIX 20MG INJ) 20 MG BLOOD-DOSE BETWEEN IV (CKD) Sodium Chloride (SODIUM CHLORIDE) 10 ML ASDIR IV Pantoprazole Sodium (PROTONIX) 40 MG Q12HR IV Polyethylene Glycol (MIRALAX) 17 GM DAILY PO Sennosides (Senna Lax 8.6 MG TABLET) 8.6 MG DAILY PO Sodium Chloride (SODIUM CHLORIDE) 10 ML ASDIR PRN IV Amitriptyline HCl (ELAVIL) 25 MG BEDTIME PO Zinc Oxide (ZINC OXIDE 30 GM OINTMENT) 1 APPLIC DAILY TOPICAL Sterile Water (WATER FOR IRRIGATION) DRESSING CHANGE ASDIR PRN IRR Insulin Human Lispro (HUMALOG) 0 AC HS SUBQ Dextrose/Water (DEXTROSE 10% IN WATER) 125 ML ASDIR PRN IV (CKD) Dextrose/Water (DEXTROSE 10% IN WATER) 250 ML ASDIR PRN IV (CKD) Glucagon (GLUCAGON) 1 MG ASDIR PRN IM Lidocaine (LIDODERM) 1 PATCH DAILY TOPICAL Acetaminophen (TYLENOL) 650 MG Q6H PRN PRN PO Bisacodyl (DULCOLAX) 10 MG DAILY PRN PRN RECTAL Docusate Sodium (COLACE) 100 MG Q12H PRN PRN PO Hydralazine HCl (APRESOLINE) 10 MG Q6H PRN PRN IV Ondansetron HCl (ZOFRAN) 4 MG Q6H PRN PRN IV Physical ExamGeneral appearance: alert, awake Diagnosis, Assessment PlanHospital course to date:Laboratory Tests: 09/16 09/16 09/16 09/16 1549 1441 1110 0553 Chemistry POC Glucose (70 - 110 MG/DL) 62 L 60 L 148 H 195 H 09/16 09/15 0455 1937 Chemistry Sodium [...] % (Auto) (14.0 - 32.0 %) 18.6 [place] % (Auto) (4.8 - 9.0 %) 6.7 Eos % (Auto) (0.3 - 3.7 %) 0.2 L Baso % (Auto) (0.0 - 2.0 %) 0.1 Neut # (Auto) (2.0 - 7.6 x10 3/uL) 6.99 Lymph # (Auto) (1.0 - 3.8 x10 3/uL) 1.77 [place] # (Auto) (0.1 - 0.8 x10 3/uL) 0.64 Eos # (Auto) (0.0 - 0.2 x10 3/uL) 0.02 Baso # (Auto) (0.0 - 0.2 x10 3/uL) 0.01 Abs Immat Gran (auto) (0.00 - 0.03 x10 3/uL) 0.10 H Add Manual Diff NO Immature Gran % (0.0 - 2.0 %) 1.0 Nucleated RBC % (0 - 0 %) 0.0 Nucleated RBCs # (Man) (0.0 - 0.1 x10 3/uL) 0.00 Laboratory Tests: 09/15 09/15 09/15 09/15 1640 1304 1154 0519 Chemistry POC Glucose (70 - 110 MG/DL) 137 H 126 H 309 H Urines Urine Color (YEL/STRAW) YELLOW Urine Appearance (CLEAR) SL CLOUDY Urine pH (5.0 - 7.0) 5.0 Ur Specific [place] (1.005 - 1.030) 1.013 Urine Protein (NEGATIVE) [...] (Auto) (14.0 - 32.0 %) 11.3 L [place] % (Auto) (4.8 - 9.0 %) 3.2 L Eos % (Auto) (0.3 - 3.7 %) 0.0 L Baso % (Auto) (0.0 - 2.0 %) 0.1 Neut # (Auto) (2.0 - 7.6 x10 3/uL) 7.35 Lymph # (Auto) (1.0 - 3.8 x10 3/uL) 0.98 L [place] # (Auto) (0.1 - 0.8 x10 3/uL) 0.28 Eos # (Auto) (0.0 - 0.2 x10 3/uL) 0.00 Baso # (Auto) (0.0 - 0.2 x10 3/uL) 0.01 Abs Immat Gran (auto) (0.00 - 0.03 x10 3/uL) 0.04 H Add Manual Diff NO Immature Gran % (0.0 - 2.0 %) 0.5 Nucleated RBC % (0 - 0 %) 0.0 Nucleated RBCs # (Man) (0.0 - 0.1 x10 3/uL) 0.00 Microbiology: Date/Time Procedure - Status Source Growth 09/15 0515 MRSA DNA Surveillance Screen - COMP NASAL Laboratory Tests: 09/14 09/14 09/14 09/14 09/13 1130 0736 0526 0525 1937Chemistry Sodium (134 - 147 mEq/L) 132 L [...] H Calcium (8.0 - 10.5 mg/dL) 7.5 LHematology WBC (4.5 - 11.0 x10 3/uL) 9.5 [...] (Auto) (14.0 - 32.0 %) 13.9 L [place] % (Auto) (4.8 - 9.0 %) 5.1 Eos % (Auto) (0.3 - 3.7 %) 0.0 L Baso % (Auto) (0.0 - 2.0 %) 0.1 Neut # (Auto) (2.0 - 7.6 x10 3/uL) 7.58 Lymph # (Auto) (1.0 - 3.8 x10 3/uL) 1.31 Lenoir # (Auto) (0.1 - 0.8 x10 3/uL) 0.48 Eos # (Auto) (0.0 - 0.2 x10 3/uL) 0.00 Baso # (Auto) (0.0 - 0.2 x10 3/uL) 0.01 Abs Immat Gran (auto) (0.00 - 0.03 0.07 Hx10 3/uL) Add Manual Diff NO Immature Gran % (0.0 - 2.0 %) 0.7 Nucleated RBC % (0 - 0 %) 0.0 Nucleated RBCs # (Man) (0.0 - 0.1 0.00x10 3/uL) 09/13 1629 Chemistry POC Glucose (70 - 110 MG/DL) 130 H Laboratory Tests: 09/1321 1105 0512 0455 2016 Chemistry Sodium (134 - 147 [...] (Auto) (14.0 - 32.0 %) 10.4 L Lenoir % (Auto) (4.8 - 9.0 %) 3.5 L Eos % (Auto) (0.3 - 3.7 %) 0.0 L Baso % (Auto) (0.0 - 2.0 %) 0.1 Neut # (Auto) (2.0 - 7.6 x10 3/uL) 8.34 H Lymph # (Auto) (1.0 - 3.8 x10 3/uL) 1.02 Lenoir # (Auto) (0.1 - 0.8 x10 3/uL) 0.34 Eos # (Auto) (0.0 - 0.2 x10 3/uL) 0.00 Baso # (Auto) (0.0 - 0.2 x10 3/uL) 0.01 Abs Immat Gran (auto) (0.00 - 0.03 x10 3/uL) 0.07 H Add Manual Diff NO Immature Gran % (0.0 - 2.0 %) 0.7 Nucleated RBC % (0 - 0 %) 0.0 Nucleated RBCs # (Man) (0.0 - 0.1 x10 3/uL) 0.00 Microbiology: Date/Time Procedure - Status Source Growth [...] % (Auto) (14.0 - 32.0 %) 15.0 Lenoir % (Auto) (4.8 - 9.0 %) 7.9 Eos % (Auto) (0.3 - 3.7 %) 3.8 H Baso % (Auto) (0.0 - 2.0 %) 0.3 Neut # (Auto) (2.0 - 7.6 x10 3/uL) 6.34 Lymph # (Auto) (1.0 - 3.8 x10 3/uL) 1.31 Lenoir # (Auto) (0.1 - 0.8 x10 3/uL) 0.69 Eos # (Auto) (0.0 - 0.2 x10 3/uL) 0.33 H Baso # (Auto) (0.0 - 0.2 x10 3/uL) 0.03 Abs Immat Gran (auto) (0.00 - 0.03 x10 3/uL) 0.06 H Add Manual Diff NO Immature Gran % (0.0 - 2.0 %) 0.7 Nucleated RBC % (0 - 0 %) 0.0 Nucleated RBCs # (Man) (0.0 - 0.1 x10 3/uL) 0.00 Toxicology Random Vancomycin (mcg/mL) 16.7 Laboratory Tests: 09/11 09/11 09/11 09/11 09/11 1532 1445 1114 0541 0445Chemistry Sodium (134 - 147 mEq/L) 134 Potassium [...] MG/DL) 4.7 Magnesium (1.80 - 2.40 mg/dL) 1.90Hematology WBC (4.5 - 11.0 x10 3/uL) 7.9 [...] % (Auto) (14.0 - 32.0 %) 16.1 Lenoir % (Auto) (4.8 - 9.0 %) 9.1 H Eos % (Auto) (0.3 - 3.7 %) 5.6 H Baso % (Auto) (0.0 - 2.0 %) 0.5 Neut # (Auto) (2.0 - 7.6 x10 3/uL) 5.35 Lymph # (Auto) (1.0 - 3.8 x10 3/uL) 1.27 [place]oir # (Auto) (0.1 - 0.8 x10 3/uL) 0.72 Eos # (Auto) (0.0 - 0.2 x10 3/uL) 0.44 H Baso # (Auto) (0.0 - 0.2 x10 3/uL) 0.04 Abs Immat Gran (auto) (0.00 - 0.03 0.06 Hx10 3/uL) Add Manual Diff NO Immature Gran % (0.0 - 2.0 %) 0.8 Nucleated RBC % (0 - 0 %) 0.0 Nucleated RBCs # (Man) (0.0 - 0.1 0.00x10 3/uL)Toxicology Random Vancomycin (mcg/mL) 18.3 09/10 1851 Chemistry POC Glucose (70 - 110 MG/DL) 97 Laboratory Tests: 09/10 09/10 09/10 09/10 09/10 1715 1625 1430 1007 0545Chemistry Sodium (134 - 147 mEq/L) 135 Potassium [...] MG/DL) 4.6 Magnesium (1.80 - 2.40 mg/dL) 1.89Hematology WBC (4.5 - 11.0 x10 3/uL) 8.6 [...] % (Auto) (14.0 - 32.0 %) 15.5 Lenoir % (Auto) (4.8 - 9.0 %) 8.5 Eos % (Auto) (0.3 - 3.7 %) 5.5 H Baso % (Auto) (0.0 - 2.0 %) 0.4 Neut # (Auto) (2.0 - 7.6 x10 3/uL) 5.94 Lymph # (Auto) (1.0 - 3.8 x10 3/uL) 1.33 Lenoir # (Auto) (0.1 - 0.8 x10 3/uL) 0.73 Eos # (Auto) (0.0 - 0.2 x10 3/uL) 0.47 H Baso # (Auto) (0.0 - 0.2 x10 3/uL) 0.03 Abs Immat Gran (auto) (0.00 - 0.03 0.06 Hx10 3/uL) Add Manual Diff NO Immature Gran % (0.0 - 2.0 %) 0.7 Nucleated RBC % (0 - 0 %) 0.0 Nucleated RBCs # (Man) (0.0 - 0.1 0.00x10 3/uL)Toxicology Random Vancomycin (mcg/mL) 15.7 09/10 09/09 0541 1911 Chemistry POC Glucose (70 - 110 MG/DL) 154 H 102 Recent Impressions:ULTRASOUND - US RETROPERITONEAL COM 09/10 1311 Report Impression - Status: SIGNED Entered: 09/10/2022 1503 IMPRESSION: No acute findings. Impression By: Yared Mares M.D. Laboratory Tests: 09/09 09/09 09/09 09/09 09/09 [...] % (Auto) (14.0 - 32.0 %) 16.1 Lenoir % (Auto) (4.8 - 9.0 %) 9.2 H Eos % (Auto) (0.3 - 3.7 %) 4.7 H Baso % (Auto) (0.0 - 2.0 %) 0.4 Neut # (Auto) (2.0 - 7.6 x10 3/uL) 6.38 Lymph # (Auto) (1.0 - 3.8 x10 3/uL) 1.49 Lenoir # (Auto) (0.1 - 0.8 x10 3/uL) 0.85 H Eos # (Auto) (0.0 - 0.2 x10 3/uL) 0.43 H Baso # (Auto) (0.0 - 0.2 x10 3/uL) 0.04 Abs Immat Gran (auto) (0.00 - 0.03 x10 3/uL) 0.05 H Add Manual Diff NO Immature Gran % (0.0 - 2.0 %) 0.5 Nucleated RBC % (0 - 0 %) 0.0 Nucleated RBCs # (Man) (0.0 - 0.1 x10 3/uL) 0.00 Retic Count (auto) (0.3 - 2.3 [...] (Auto) (14.0 - 32.0 %) 13.7 L Lenoir % (Auto) (4.8 - 9.0 %) 7.2 Eos % (Auto) (0.3 - 3.7 %) 4.8 H Baso % (Auto) (0.0 - 2.0 %) 0.3 Neut # (Auto) (2.0 - 7.6 x10 3/uL) 6.64 Lymph # (Auto) (1.0 - 3.8 x10 3/uL) 1.24 [place]oir # (Auto) (0.1 - 0.8 x10 3/uL) 0.65 Eos # (Auto) (0.0 - 0.2 x10 3/uL) 0.43 H Baso # (Auto) (0.0 - 0.2 x10 3/uL) 0.03 Abs Immat Gran (auto) (0.00 - 0.03 x10 3/uL) 0.06 H Add Manual Diff NO Immature Gran % (0.0 - 2.0 %) 0.7 Nucleated RBC % (0 - 0 %) 0.0 Nucleated RBCs # (Man) (0.0 - 0.1 x10 3/uL) 0.00 Laboratory Tests: 09/07 09/07 09/07 09/07 09/07 1554 1137 1127 0618 0510 Chemistry Creatinine (0.6 - 1.3 mg/dL) 1.4 H POC Glucose (70 - 110 MG/DL) 112 H 51 L 42 L 135 H Hematology Hgb (12.5 - 16.9 [...] 1739 Occult Blood - COMP STOOL Recent Impressions:RADIOLOGY - XR ABDOMEN 1V (KUB) 09/04 1648 Report Impression - Status: SIGNED Entered: 09/04/2022 1757 IMPRESSION: Benign appearance of the abdomen.Impression By: [email or web address] - Roger Parra M.D.ULTRASOUND - [facility] VEIN UNI/LTD 09/05 1146 Report Impression - Status: SIGNED Entered: 09/05/2022 1333 IMPRESSION: 1. No evidence of deep vein thrombosis. 2. Complex heterogeneous hypoechoic fluid collection in the left calf region measuring 8.4 x 2.8 x 2.5 cm; there is no internal vascularity or peripheral hyperemia. May represent a hematoma.Impression By: [email or web address] - Mert Ga M.D.RADIOLOGY - XR CHEST 1 V 09/05 1432 Report Impression - Status: SIGNED Entered: 09/05/2022 1515 IMPRESSION: Minimal bibasilar pulmonary opacitiesImpression By: Yared Mares, M.D. Laboratory Tests: 09/04 09/04 09/04 09/04 09/04 [...] COLB STOOL 1.Diabetes mellitus type 2 uncontrolled complications.2. Status post right BKA3. Status post gangrene of the right foot.4. Sepsis5. Prostate abscess.6. AnemiaBlood sugar 175-148 mg/dL.H/H 8.11/17.Adjust insulin dose.PT and OT. at 1724 RPT #:[id number] OF REPORTPRProgress [id number]:23:00G.[id number] able for patient vpkwPJYWKLUARNNLJC9107-60-16O22:24:39 [facility] 2022-09-16 15:04:00 [id number] 1yZXlsigY6MB9gOVpkPik3NvalzMt qx4xccbp1z7PNEgPhBtKd1qsPDv5155-42-20H60:04:00 [facility] HospitalRehab Team ConferenceREPORT#:[id number] REPORT STATUS: SignedDATE:09/16/22 TIME: 1504 PATIENT: KARMA ROWLAND UNIT #: [id number]#: [id number] ROOM/BED: 537-1DOB: [birth year] AGE: 56 SEX: M ATTEND: Mj Vences MDADM AUTHOR: Mj Vences MD * ALL edits or amendments must be made on the electronic/computer document * Rehabilitation Team Conference Weekly Team ConferenceTeam conf information:Date of conference: 09/16/22Conference type: InterimConference scribe: Columba Drew PTA INTERDISCIPLINARY TEAM MEETING PARTICIPANTS: TITLE NAME MD jM Vences, RN Crysatl Castro, SELENA PT Anthony Ro, PT OT Williams Mckeon, OT CM/TERESA Sinclair CM ST NO ATTENDEE PPSC Amanda Lai, KEVIN Staff (8) NO ATTENDEE Staff (9) NO ATTENDEE OTHER NAME CREDENTIALS 1 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 PAIN NOTED 01/01 PERCOCET ADMIN, HELPS DECREASE PAIN. ABRASION ON TOP OF LEFT FOOT IS OPEN TO AIR. SWELLING NOTED TO LEFT FOOT, PT IS CONTINUING TO ELEVATE FOOT. BLOOD SUGARS ARE WNL. PLEASE MAKE ADJUSTMENT TO INSULINS. DAILY WT 184.3, INCREASE OF WT GAIN FROM ADMISSION 154.4. ABNORMAL LABS 09/15: ALBUMIN 1.50L, BUN38H, CREAT 2.9H, HGB 8.2. LABS TO BE DRAWN THIS AM. PT team conference update: PATIENT IS PROGRESSING WITH PT, REQUIRES MOD I FOR BED MOB, TRANSFERS WITH CGA LEVEL, WC MOB AMADO 200 FEET . STANDS WITH RW AND MODA. WILL NEED WC, FAMILY PLANS ON BUILDING A RAMP. 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 Adls: Mod I to Max assist, Xfers: set up/ supervision Recc: HHOT, Dme: Drop arm bsc, sliding boardST team conference update: CM or TERESA team conference update: PATIENT IS FROM HOME WITH A SUPPORTIVE SPOUSE. PLAN TO DC TO HOME WITH NEEDED DME AND HOME HEALTH. PROVIDED FAMILY WITH INFORMATION ON SOCIAL SECURITY DISABILITY.Other discipline update 1: P.O INTAKE: 75-100% OF RENAL 3 CARB DIET.Other discipline update 2: Other discipline update 3: REHAB DC GOALS: Patient's identified discharge goal: "I WOULD LIKE TO GO HOME WITH MY FAMILY" PT: PATIENT WILL LIKE TO GET STRONGER TO DC HOME AND GO BACK TO WORK ONCE HE RECEIVED HIS PROSTHETIC OT: "get stronger" Eating discharge goal: Independent (6) Shower/bathe self discharge goal: Independent (6) Upper body dressing discharge goal: Independent (6) Lower body dressing discharge goal: Independent (6) Chair/bed to chair transfer discharge goal: Setup/clean-up only (5) Transfer on/off toilet or commode discharge goal: Supervise/touch asst (4) Walking 50 feet with two turns discharge goal: Med cond/safety concern Walking 150 feet discharge goal: Med cond/safety concern Four steps discharge goal: Med cond/safety concern Twelve steps discharge goal: Med cond/safety concern [place] 150 feet discharge goal: Independent (6) Goal 1 - Bowel function: PATIENT WILL REMAIN CONTINENT OF BOWELGoal 2 - Bladder function: PATIENT WILL REGAIN BLADDER CONTROLNursing goal 3: PATIENT WILL BE FREE FROM FALLS DURING STAYNursing goal 4: PATIENT WILL MAINTAIN SKIN INTEGRITYNursing goal 5: DISCHARGE PLANNING: Barriers to discharge: Fall risk, Endurance, Pain, Caregiver, NWB RLE, DIFFICULTY WITH TRANSFERSStrategies for D/C barriers: Fall recovery training, Evaluate pain control, Scheduled rest breaks, LE EX, WC MOB, TRANSFER TRAINING, CAREGIVER TRAINING Estimated length of stay in days: 17Anticipated discharge date: 09/24/22Discharge date adjustment comment: PATIENT ON IV ANTIBIOTICS UNTIL 09/24/22Identified financial and/or community resource needs: Family/Caregiver training days: PATIENT AND FAMILY WILL BE EDUCATED ON USE OF GAIT BELT TO LOWER PT TO THE FLOOR IN THE EVENT OF LOSS OF BALANCE TO PREVENT FALL OR INJURY. 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 IRF cont stay criteriaSee my note at 1504 RPT #:[id number] OF REPORTCLClinical itrp2686-07-44Q19:04:00G.[id number] able for patient iavfJYQBLVGGVPPEYI8197-46-17D34:04:46 [facility] 2022-09-16 14:29:00 [id number] g4uBI/4a9ee9/vaP92OArUTdlpqj9 7SgVNOjAOFmclwlvlPEsQHNC+Ur4129-87-37T27:29:00 [facility] HospitalGastroenterology Progress NoteREPORT#:[id number] REPORT STATUS: SignedDATE:09/16/22 TIME: 1429 PATIENT: KARMA ROWLAND UNIT #: [id number]#: [id number] [address] [birth year] AGE: 56 SEX: M ATTEND: Mj Vences MDADM AUTHOR: Kassie Avitia MD * ALL edits or amendments must be made on the electronic/computer document * SubjectiveHPI:Patient is a 56-year-old male with history of diabetes mellitus type 2 and hypertension who was initially admitted for altered mental status and right-sided foot infection. 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 The patient is anemic with current Hgb 7.1. He has received a total of 3 units pRBCs during this hospitalization. KUB on 09/04 was negative for acute GI process. The patient denies overt GIB, dark tarry stools, nausea, abdominal pain, or vomiting. He has never had EGD orcolonoscopy. 09/06: No complaints today. Hemoglobin stable. No overt GI bleed. Plan for colonoscopy and endoscopy on Thursday 09/07: No complaints today. No overt GI bleed. Planning for colonoscopy and endoscopy tomorrow 09/08: EGD mild gastritis. colonoscopy rectal polyp s/p snare. No other abnormalities 09/09: doing well. Seen at the gym. No bleeding. 09/10: Doing well. No bleeding. tolerating diet. Movig bowels 09/11: doing well. States his leg swelling is better. Tolerating diet. having normal BM 09/12: dooing well. doing work-out at the gym. Tolerating diet. Normal BMs. Stable H/-Sitting up in wheelchair, family at bedside. Denies n/v/abd pain/GIB 09/15: Doing well. H/H stable. No melena or BRBPR. No nausea or vomiting. Appetite is well 09/16: doing well. no complaints. eating well Objective Physical ExamHEENT: atraumatic, normocephalicNeck: full range of motion, non-tenderRespiratory: symmetric expansion, no distressAbdomen: non-tender, normal bowel sounds, soft, no distention, no guardingExtremities: right BKA Considered stroke alert: noSkin: dry Diagnosis, Assessment PlanFree Text A P:1. Positive FOBT-and anemia: The patient denies overt GIB, dark tarry stools, nausea, abdominal pain, or vomiting. He is not on anticoagulation therapy.-Continue PPI. The patient has never had EGD or colonoscopy prior to this admissions/p EGD and colonoscopy. EGD showed mild gastritis. Colonoscopy showed rectal polyp that was resected by snare. no evidence of bleeding. Pathology of polyp came back as tubular adenoma. recommend repeating colonoscopy in 5 years Anemia likely secondary to chronic kidney disease.Can consider video capsule endoscopy as outpt if evidence of dropping H/HH/H remains stable Will follow along Consultants: cardiology, endocrinology, hospitalist, infectious disease, podiatry at 1429 RPT #:[id number] OF REPORTPRProgress gsjq1531-81-01T75:29:00G.[id number] able for patient xkldEUFKPQPVWIKNYW7587-34-21U21:29:51 [facility] 2022-09-16 11:19:00 [id number] wgA7aPf66yN3JItg/rx/yqN/wgnuI dCHnZxYz4/T4y93VzR/MCDK1uzD8016-14-58L46:19:00 [facility] ([facility])Infectious Dis. Progress NoteREPORT#:[id number] REPORT STATUS: SignedDATE:09/16/22 TIME: 1119 PATIENT: KARMA ROWLAND UNIT #: [id number]#: [id number] [address] [birth year] AGE: 56 SEX: M ATTEND: Mj Vences [facility] AUTHOR: Linda Anderson MD * ALL edits or amendments must be made on the electronic/computer document * SubjectiveHPI:PT is a 56yr old male with history of diabetes mellitus type 2, hypertension whowas admitted with altered mental status and right-sided foot infection. According to him, he noticed a blister on his right foot around 3 days prior to presentation. His foot got progressively more swollen and erythema extended proximally to his lateral foot and ankle. CT abdomen and pelvis with contrast is concerning for possible prostate abscess. CT of lower extremity without contrast shows extensive soft tissue edema with mottled gas in the subcutaneous and intramuscular compartments of the foot, compatible with gas-forming infection. Patient's blood cultures have come back positive for MRSA in 2 out of 2 sets. PT has had persistent (+)Ve cx for MRSA 08/18- 08/22. He underwent a debridement of his foot on 08/19 and cx grew MRSA. PT was started on Vancomycin and clindamycin on 08/18. His MRI showed a prostate abscess. 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 Pt underwent a transrectal aspiration and unroofing of prostate abscess 08/26 and cx grew Citrobacter, Enterococcus, MRSA. He also hada BKA of right leg 08/28. JIMENA done 09/02. Pt was transferred to Rehab on 09/02. Patient reports:No: cough, diarrhea, fever, headache, nausea, shortness of breath, vomiting. Portions of this section were scribed by Jill Quintero on 09/16/22 at 1119 Objective GeneralAntibiotic start date:Antibiotic: vancomycinStart Date:09/03-09/12Antibiotic: daptomycin Start Date:08/28-09/03, restarted on 09/12 Antibiotic: cefepime Start Date:09/01-09/12 Antibiotic: merremStart Date:08/27-09/01, 09/12- Physical ExamHead/Eyes: atraumatic, clear cornea, EOMI, normal conjunctiva/sclera, normal eyelids/periorb, normocephalic, PERRLENT: moist mucosal membranes, normal dentitionNeck: full range of motionCardiovascular: normal heart sounds, regular rate rhythmRespiratory: clear to auscultation, aerating wellAbdomen: non-tender, normal bowel sounds, softExtremities: moves all, right BKA Left foot wound +dressing in placeNeuro/DIRECTOR OPERATING ROOM: alert, oriented X 3 Considered stroke alert: noSkin: dry, intact Portions of this section were scribed by Jill Quintero on 09/16/22 at 1119 Treatment Prophylaxis Treatment ProphylaxisLines: PICC Portions of this section were scribed by Jill Quintero on 09/16/22 at 1119 Diagnosis, Assessment PlanFree Text A P:*MRSA bacteremia-Initial blood cultures from 08/18/2022 positive for MRSA in 2 out of 2 sets.-Repeat blood cultures 08/21/2022 are already positive for MRSA in 2 out of 2 sets, suggesting persistent high-grade bacteremia.-TTE 08/18/2022 negative for any obvious vegetations.-08/28 neg-JIMENA 09/02 neg*Prostatic abscess-s/p transrectal aspiration and unroofing on 08/26-cx MRSA, citrobacter (r-cefazolin) Enterococcus raffinosus (S-amp,pcn, vancomycin), bacteriodes*ERIKA-nephrology following; worsening*Hyponatremia*Diabetic neuropathy*Diabetes mellitus type 2*Hypertension*anemia 09/08-cont on Cefepime and vancomycin til 5/3 for treatment of Prostate abscess-follow esr and crp-EGD today 09/09-on cefepime and vancomycin til 5/3 for treatment of prostate abscess 09/10on cefepime and vancomycin til 5/3 for treatment of prostate abscesscheck esr and crp in am 09/11on cefepime and vancomycin til 5/3 for treatment of prostate abscess; if pt is discharge before 09/24 can change to oral abx cefepime and vancomycin til 5/3 for treatment of prostate abscess; will change to Merrem 500mg Iv Q12hrs and Daptomycin as creat is worsening Merrem and Daptomycin til 5/3creat still elevated: nephrology following Merrem and Daptomycin til 5/3monitor creat. ; improving; nephrology followingfollow esr and crp Consultants: cardiology, endocrinology, hospitalist, infectious disease, podiatry Portions of this section were scribed by Jill Quintero on 09/16/22 at 1915 at 2255 RPT #:[id number] OF REPORTPRProgress [id number]:19:00G.[id number] able for patient yllyTBWDCPCKRHRMFX8389-88-38S60:55:34 [facility] 2022-09-16 09:52:00 [id number] Of0np7F5R+LkFlAIB/EJ5LNaC5Fz0 gUflqY243K6srT58yvUP2eVrtxk0247-42-70C13:52:00 [facility] ([facility])Cardiology Progress NoteREPORT#:[id number] REPORT STATUS: SignedDATE:09/16/22 TIME: 951 PATIENT: KARMA ROWLAND UNIT #: [id number]#: [id number] [address] [birth year] AGE: 56 SEX: M ATTEND: Mj Vences MDADM AUTHOR: Rohit Benitez RESEARCH MANUFACTURING OPERATOR * ALL edits or amendments must be made on the electronic/computer document * Rohit Benitez 09/16/22 0952:SubjectiveChief complaint:weakness Free Text Subj NotesFree Text Subj Notes:Patient seen and evaluated in the gym. Working with physical therapy, no new cardiac complaint. Objective GeneralVS/I O:24 hour I O ending at 0700: 09/16 0700 09/15 1900 Intake Total 200 1060 Output Total 1600 1400 Balance -1400 -340 Intake, Oral 200 1060 Number 0 0 Incontinent Voids Number Voids 0 0 Output, Urine 1600 1400 Vital Signs: Date Time Temp Pulse Resp B/P B/P Pulse O2 O2 Flow FiO2 Mean Ox Delivery Rate 09/16 0722 97.3 77 18 159/79 105.3 96 Room air 09/16 0004 97.5 78 16 147/78 101.2 95 09/15 1939 97.5 77 18 167/84 111.5 96 09/15 1651 97.3 77 18 163/75 104.3 95 PATIENT WEIGHT: Weight (lb): 165Weight (oz): 5.55Weight (kg): 75.000 Medications:Active Meds + DC'd Last 24 HrsHydralazine HCl (APRESOLINE) 25 MG Q8HR PO Daptomycin (CUBICIN 500MG) 500 MG Q48H IV Sodium Chloride (SODIUM CHLORIDE 0.9%) 50 MLPrednisone (predniSONE) 80 MG ONCE ONE PO (DC) Insulin Human Lispro (HUMALOG) 10 UNIT AC SUBQ Heparin Sodium (HEPARIN 5000 UNITS/ML) 5,000 UNIT Q12HR SUBQ Insulin Glargine (Semglee) 20 UNIT BEDTIME SUBQ Meropenem (MEROPENEM) 500 MG Q8H IV Sterile Water (WATER FOR INJECTION) 10 MLInsulin Glargine (Semglee) 14 UNIT BEDTIME SUBQ (DC) Insulin Human Lispro (HUMALOG) 7 UNIT AC SUBQ (DC) Carvedilol (COREG) 25 MG C BK DIN PO Daptomycin (CUBICIN 500MG) 500 MG Q24H IV (DC) Sodium Chloride (SODIUM CHLORIDE 0.9%) 50 MLMeropenem (MEROPENEM) 500 MG Q12H IV (DC) Sterile Water (WATER FOR INJECTION) 10 MLGabapentin (NEURONTIN) 100 MG Q8HR PO Oxycodone/Acetaminophen (PERCOCET 5/325MG TAB) 2 TAB Q4H PRN PRN PO Ferric Sodium Gluconate Complex (FERRLECIT) 125 MG DAILY IV Sodium Chloride (SODIUM CHLORIDE 0.9%) 100 MLFolic Acid (FOLIC ACID) 2 MG DAILY PO Multivitamins (TAB-A-MOHAN) 1 TAB DAILY PO Furosemide (LASIX 20MG INJ) 20 MG BLOOD-DOSE BETWEEN IV (CKD) Sodium Chloride (SODIUM CHLORIDE) 10 ML ASDIR IV Pantoprazole Sodium (PROTONIX) 40 MG Q12HR IV Polyethylene Glycol (MIRALAX) 17 GM DAILY PO Sennosides (Senna Lax 8.6 MG TABLET) 8.6 MG DAILY PO Sodium Chloride (SODIUM CHLORIDE) 10 ML ASDIR PRN IV Amitriptyline HCl (ELAVIL) 25 MG BEDTIME PO Zinc Oxide (ZINC OXIDE 30 GM OINTMENT) 1 APPLIC DAILY TOPICAL Sterile Water (WATER FOR IRRIGATION) DRESSING CHANGE ASDIR PRN IRR Insulin Human Lispro (HUMALOG) 0 AC HS SUBQ Dextrose/Water (DEXTROSE 10% IN WATER) 125 ML ASDIR PRN IV (CKD) Dextrose/Water (DEXTROSE 10% IN WATER) 250 ML ASDIR PRN IV (CKD) Glucagon (GLUCAGON) 1 MG ASDIR PRN IM Lidocaine (LIDODERM) 1 PATCH DAILY TOPICAL Heparin Sodium (HEPARIN 5000 UNITS/ML) 5,000 UNIT Q8HR SUBQ (DC) Acetaminophen (TYLENOL) 650 MG Q6H PRN PRN PO Bisacodyl (DULCOLAX) 10 MG DAILY PRN PRN RECTAL Docusate Sodium (COLACE) 100 MG Q12H PRN PRN PO Hydralazine HCl (APRESOLINE) 10 MG Q6H PRN PRN IV Ondansetron HCl (ZOFRAN) 4 MG Q6H PRN PRN IV Physical ExamGeneral appearance: alert, awake, orientedNeck: no bruit/NL carotids, no JVDCardiovascular: CV assessment: regular rate and rhythm, no ectopy, no gallopRespiratory: clear to auscultation, no distressAbdomen: soft, non-tenderLower extremity: LE assessment: edema, normal temperatureNeuro/DIRECTOR OPERATING ROOM: alert, oriented X 3 Considered stroke alert: noWound/incision: Location:right bkaPsychiatry: normal affect, normal judgment/insight, normal mood ResultsFindings/Data:Laboratory Tests 09/16 09/16 09/15 09/15 09/15 0553 [...] % (Auto) (14.0 - 32.0 %) 18.6 [place] % (Auto) (4.8 - 9.0 %) 6.7 Eos % (Auto) (0.3 - 3.7 %) 0.2 L Baso % (Auto) (0.0 - 2.0 %) 0.1 Neut # (Auto) (2.0 - 7.6 x10 3/uL) 6.99 Lymph # (Auto) (1.0 - 3.8 x10 3/uL) 1.77 [place] # (Auto) (0.1 - 0.8 x10 3/uL) 0.64 Eos # (Auto) (0.0 - 0.2 x10 3/uL) 0.02 Baso # (Auto) (0.0 - 0.2 x10 3/uL) 0.01 Abs Immat Gran (auto) (0.00 - 0.03 x10 3/uL) 0.10 H Add Manual Diff NO Immature Gran % (0.0 - 2.0 %) 1.0 Nucleated RBC % (0 - 0 %) 0.0 Nucleated RBCs # (Man) (0.0 - 0.1 x10 3/uL) 0.00 Laboratory Tests 09/15 1304 Urines Urine Color (YEL/STRAW) YELLOW Urine Appearance (CLEAR) SL CLOUDY Urine pH (5.0 - 7.0) 5.0 Ur Specific [place] (1.005 - 1.030) 1.013 Urine Protein (NEGATIVE) [...] (1.80 - 2.40 mg/dL) 1.93 Diagnosis, Assessment PlanConsultants: cardiology, endocrinology, hospitalist, infectious disease, podiatry Free Text DxA P NotesFree Text DxA P Notes:Impression: 1. Debility2. Infected right foot status post BKA3. Bacteremia4. Diabetes5. Hypertension 6. Anemia7. Acute Diastolic CHF 07/2022: Echocardiogram with normal LVEF, grade 1 diastolic dysfunction, mildly dilated LA, and no significant valvular abnormalities Recommendation: Patient initially presented with DKA and sepsis. Diagnosed with right foot infection, underwent I D, now status post BKA. Patient had persistent bacteremia with MRSA, underwent JIMENA with negative findings of endocarditis. Patient now transferred to rehab for physical therapy. Known cardiac history ofhypertension and hyperlipidemia. Vital signs stable. Echocardiogram with normal LVEF, grade 1 diastolic dysfunction, mildly dilated LA, and no significant valvular abnormalities. Continue to monitor blood pressure trend. Continue wound care and IV antibiotic therapy. Continue PT/OT. Supportive care. 09/04: Patient complaining of shortness of breath, abdominal distention and lowerextremity edema. Renal function and electrolytes stable. Will give one-time dose of IV Lasix 40 mg. Blood pressure stable. Pending abdominal x-ray. Monitor intake and output. Check BMP in the morning. Supportive care. Plan ofcare discussed with patient, RN and Dr. Parham. 09/05: Patient responded well to IV Lasix, good urine output and improvement in shortness of breath. Chest x-ray ordered. Currently on Lasix 20 mg p.o. daily. Continue monitor renal function and electrolytes. Pending lower extremity Doppler for lower extremity edema. Continue PT/OT. Supportive care. Plan of care discussed with patient, RN and Dr. Parham. 09/08: Blood pressure has been elevated, started on Coreg 3.125 mg twice daily. Continue monitor blood pressure trend and adjust medication as needed. Still having left lower extremity edema, venous Doppler negative for DVT. continue gentle diuresis with Lasix 20 mg p.o. daily. Recommend Joan wrap. Patient remains anemic, plan for EGD/colonoscopy today. Supportive care. Plan of care discussed with patient, family, RN and Dr. Parham. 09/09: Patient doing well status post EGD/colonoscopy, negative findings for GI bleed. Blood pressure improving, increased on Coreg to 12.5 mg twice daily. Elevated creatinine noted, nephrology following. No new cardiac complaint. Continue wound care. Continue PT/OT. Supportive care. Plan of care discussed with patient, RN and Dr. Parham. 09/10: Blood pressure remained stable on current regimen of Coreg. Patient continue to have left lower extremity edema. Currently on Lasix 20 mg daily. Creatinine 1.9 today, continue to monitor. Patient's albumin level was 1.3, it is possible that patient's lower extremity edema could be related to hypoalbuminemia leading to third spacing. Continue PT/OT. Supportive care. Plan of care discussed with patient, RN and Dr. Parham. 09/11: Patient doing well from cardiac standpoint. Blood pressure well controlled. Improvement in lower extremity edema with elevating leg while in bed. Creatinine 2.0 today. Denies shortness of breath. Will hold diuretic for now and monitor renal function. Supportive care. Plan of care discussed with patient, RN and Dr. Parham. 09/12: Creatinine remains elevated at 2.4 today, antibiotic regimen also being adjusted. Patient still with lower extremity edema and rales on physical examination. Will check chest x-ray and limited echocardiogram for further evaluation. Check BNP. Continue hold diuretic for now. Supportive care. Planof care discussed with patient, RN and Dr. Parham. 09/15: Repeat echocardiogram showed LVEF of 55 to 60%, no regional wall motion abnormalities, left ventricular diastolic function parameters are indeterminate,mildly dilated LA, and no pericardial effusion. BNP elevated 297. Continue to hold diuretic due to Elevated creatinine, nephrology following and may consider renal biopsy. Continue to monitor fluid volume status. Overall improvement in lower extremity with Joan wrap. Continue physical therapy. Supportive care. Plan of care discussed with patient, RN and Dr. Parham. 09/16: Blood pressure slightly elevated, started on hydralazine 25 mg every 8 hours. Continue carvedilol monitor blood pressure trend. Cr. 2.7 today, continue monitor. Tolerating physical therapy. Euvolemic by physical examination. Supportive care. Plan of care discussed with patient, RN and Dr. Parham. Napoleon Parham 09/18/22 0859:Diagnosis, Assessment PlanAdditional comments:Agree with above assessment and plan as documented by nurse practitioner, continue current management, will follow. at 1617 at 0902 RPT #:[id number] OF REPORTPRProgress [id number]:52:00G.[id number] able for patient gjmeEPWYVQDSXMEEWQ4878-98-10L69:17:49 [facility] 2022-09-16 08:17:00 [id number] [id number] aadVwhcVwyfs9XYORtWvAdG+rJa2214-02-91P91:17:00 [facility] HospitalNephrology Progress NoteREPORT#:[id number] REPORT STATUS: SignedDATE:09/16/22 TIME: 08 PATIENT: KARMA ROWLAND UNIT #: [id number]#: [id number] [address] [birth year] AGE: 56 SEX: M ATTEND: Mj Vecnes [facility] AUTHOR: Barrera Ramírez MD * ALL edits or amendments must be made on the electronic/computer document * SubjectiveChief complaint:Infected footHPI:Patient seen and evaluated on 09/09/2022, note started, records reviewed and orders placed on 09/08/2022, 56-year-old male with history of diabetes mellitus type 2, hypertension and peripheral vascular disease who was initially admitted to acute care with altered mental status and right foot infection/gangrene, 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 Patient had persistent anemia requiring blood transfusion. His fecal occult blood was positive and his creatinine was 1.2 and increased to 1.4 today, laboratories today showed hemoglobin 8.5, platelet 231, blood count 9.1, sodium 135, potassium 4.6, CO2 22, BUN 22, creatinine 1.4. Renal consult was requested for evaluation management of elevated BUN and creatinine and if his decreased GFR iscontributing to his anemia. Patient reports:Yes: complaints. Comments:Patient seen and evaluated, HPI no change from initial, scrotal and LE swelling Review of SystemsConstitutional:Reports: fatigue. Denies: chills, fever. Skin:Reports: swelling. Denies: abrasion, bruising. Allergy/Immun:Denies: hives, itching. Eyes:Denies: redness, discharge. ENT:Denies: ear drainage, ear ringing. Respiratory:Denies: hemoptysis, SOB. Cardiovascular:Denies: chest pain. Objective GeneralVS/I O:Vital Signs: Date Time Temp Pulse Resp B/P B/P Pulse O2 O2 Flow FiO2 Mean Ox Delivery Rate 09/16 0722 [...] Urine 1600 1400 PATIENT WEIGHT: Weight (lb): 165Weight (oz): 5.55Weight (kg): 75.000 MedicationsActive Meds + DC'd Last 24 HrsDaptomycin (CUBICIN 500MG) 500 MG Q48H IV Sodium Chloride (SODIUM CHLORIDE 0.9%) 50 MLInsulin Human Lispro (HUMALOG) 10 UNIT AC SUBQ Heparin Sodium (HEPARIN 5000 UNITS/ML) 5,000 UNIT Q12HR SUBQ Insulin Glargine (Semglee) 20 UNIT BEDTIME SUBQ Meropenem (MEROPENEM) 500 MG Q8H IV Sterile Water (WATER FOR INJECTION) 10 MLInsulin Glargine (Semglee) 14 UNIT BEDTIME SUBQ (DC) Insulin Human Lispro (HUMALOG) 7 UNIT AC SUBQ (DC) Carvedilol (COREG) 25 MG C BK DIN PO Daptomycin (CUBICIN 500MG) 500 MG Q24H IV (DC) Sodium Chloride (SODIUM CHLORIDE 0.9%) 50 MLMeropenem (MEROPENEM) 500 MG Q12H IV (DC) Sterile Water (WATER FOR INJECTION) 10 MLGabapentin (NEURONTIN) 100 MG Q8HR PO Oxycodone/Acetaminophen (PERCOCET 5/325MG TAB) 2 TAB Q4H PRN PRN PO Ferric Sodium Gluconate Complex (FERRLECIT) 125 MG DAILY IV Sodium Chloride (SODIUM CHLORIDE 0.9%) 100 MLFolic Acid (FOLIC ACID) 2 MG DAILY PO Multivitamins (TAB-A-MOHAN) 1 TAB DAILY PO Furosemide (LASIX 20MG INJ) 20 MG BLOOD-DOSE BETWEEN IV (CKD) Sodium Chloride (SODIUM CHLORIDE) 10 ML ASDIR IV Pantoprazole Sodium (PROTONIX) 40 MG Q12HR IV Polyethylene Glycol (MIRALAX) 17 GM DAILY PO Sennosides (Senna Lax 8.6 MG TABLET) 8.6 MG DAILY PO Sodium Chloride (SODIUM CHLORIDE) 10 ML ASDIR PRN IV Amitriptyline HCl (ELAVIL) 25 MG BEDTIME PO Zinc Oxide (ZINC OXIDE 30 GM OINTMENT) 1 APPLIC DAILY TOPICAL Sterile Water (WATER FOR IRRIGATION) DRESSING CHANGE ASDIR PRN IRR Insulin Human Lispro (HUMALOG) 0 AC HS SUBQ Dextrose/Water (DEXTROSE 10% IN WATER) 125 ML ASDIR PRN IV (CKD) Dextrose/Water (DEXTROSE 10% IN WATER) 250 ML ASDIR PRN IV (CKD) Glucagon (GLUCAGON) 1 MG ASDIR PRN IM Lidocaine (LIDODERM) 1 PATCH DAILY TOPICAL Heparin Sodium (HEPARIN 5000 UNITS/ML) 5,000 UNIT Q8HR SUBQ (DC) Acetaminophen (TYLENOL) 650 MG Q6H PRN PRN PO Bisacodyl (DULCOLAX) 10 MG DAILY PRN PRN RECTAL Docusate Sodium (COLACE) 100 MG Q12H PRN PRN PO Hydralazine HCl (APRESOLINE) 10 MG Q6H PRN PRN IV Ondansetron HCl (ZOFRAN) 4 MG Q6H PRN PRN IV Physical ExamGeneral appearance: alert, no acute distressHead/eyes: atraumatic, normocephalicENT: normal noseNeck: non-tender, supple/no meningismusCardiovascular: normal heart sounds, no rubRespiratory: aerating well, symmetric expansionAbdomen: non-tender, softGenitourinary: no flank painExtremities: non-tender, no edemaMusculoskeletal: no CVA tenderness, no tendernessNeuro/DIRECTOR OPERATING ROOM: alert, 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 Considered stroke alert: noSkin: dry, intact ResultsFindings/Data:Laboratory Tests 09/16 09/16 09/15 09/15 09/15 0553 [...] 09/15 09/15 09/14 09/14 09/14 0519 0515 1 1543 1130 Chemistry Sodium (134 - 147 [...] L 09/14 09/14 09/14 09/13 09/13 0736 0592 0525 1930 1629 Chemistry Sodium (134 - 147 mEq/L) [...] Laboratory Tests 09/16 09/15 09/14 0455 0515 0525 Hematology WBC (4.5 - 11.0 x10 [...] 32.0 %) 18.6 11.3 L 13.9 L [place] % (Auto) (4.8 - 9.0 %) 6.7 3.2 L 5.1 Eos % (Auto) (0.3 - 3.7 %) 0.2 L 0.0 L 0.0 L Baso % (Auto) (0.0 - 2.0 %) 0.1 0.1 0.1 Neut # (Auto) (2.0 - 7.6 x10 3/uL) 6.99 7.35 7.58 Lymph # (Auto) (1.0 - 3.8 x10 3/uL) 1.77 0.98 L 1.31 [place] # (Auto) (0.1 - 0.8 x10 3/uL) 0.64 0.28 0.48 Eos # (Auto) (0.0 - 0.2 x10 3/uL) 0.02 0.00 0.00 Baso # (Auto) (0.0 - 0.2 x10 3/uL) 0.01 0.01 0.01 Abs Immat Gran (auto) (0.00 - 0.03 x10 3/uL) 0.10 H 0.04 H 0.07 H Add Manual Diff NO NO NO Immature Gran % (0.0 - 2.0 %) 1.0 0.5 0.7 Nucleated RBC % (0 - 0 %) 0.0 0.0 0.0 Nucleated RBCs # (Man) (0.0 - 0.1 x10 3/uL) 0.00 0.00 0.00 Laboratory Tests 09/15 1304 Urines Urine Color (YEL/STRAW) YELLOW Urine Appearance (CLEAR) SL CLOUDY Urine pH (5.0 - 7.0) 5.0 Ur Specific [place] (1.005 - 1.030) 1.013 Urine Protein (NEGATIVE) [...] % (Auto) (14.0 - 32.0 %) 18.6 [place] % (Auto) (4.8 - 9.0 %) 6.7 Eos % (Auto) (0.3 - 3.7 %) 0.2 L Baso % (Auto) (0.0 - 2.0 %) 0.1 Neut # (Auto) (2.0 - 7.6 x10 3/uL) 6.99 Lymph # (Auto) (1.0 - 3.8 x10 3/uL) 1.77 [place] # (Auto) (0.1 - 0.8 x10 3/uL) 0.64 Eos # (Auto) (0.0 - 0.2 x10 3/uL) 0.02 Baso # (Auto) (0.0 - 0.2 x10 3/uL) 0.01 Abs Immat Gran (auto) (0.00 - 0.03 x10 3/uL) 0.10 H Add Manual Diff NO Immature Gran % (0.0 - 2.0 %) 1.0 Nucleated RBC % (0 - 0 %) 0.0 Nucleated RBCs # (Man) (0.0 - 0.1 x10 3/uL) 0.00 Laboratory Tests 09/15 1304 Urines Urine Color (YEL/STRAW) YELLOW Urine Appearance (CLEAR) SL CLOUDY Urine pH (5.0 - 7.0) 5.0 Ur Specific [place] (1.005 - 1.030) 1.013 Urine Protein (NEGATIVE) [...] Random Total Protein (mg/dL) 283 Diagnosis, Assessment PlanFree Text A P:Patient seen and evaluated, discussed with care team, images and laboratories reviewed.Diabetes mellitus: Insulin: Monitor blood sugar closely and adjust medications as needed, followed by endocrinology.Hypertension: Blood pressure is not well controlled, increase Coreg to 12.5 mg p.o. twice daily: Monitor blood pressure closely and adjust medications as neededRight foot gangrene/infection status post right BKAAnemia: Status post EGD and colonoscopy which were negative for active GI bleeding, patient had work-up in July 2022 which showed very high B12, normal folate, very low iron saturation but very high ferritin which was likely relatedto his infection, likely patient is very iron deficient, will repeat lab and give IV iron if needed. We will check serum immunofixation.Acute kidney injury: We will check renal bladder ultrasound, check postvoid residual, check urine protein creatinine ratioHypomagnesemia: We will supplement09/10/2022 laboratory this morning showed sodium 135, potassium 4.2, CO2 21, BUN 25, creatinine 1.9 continues to worsen, etiology unclear, however his development some eosinophilia not sure if he is developing AIN, suggest changingcefepime to a different class of antibiotic if possible, will check renal bladder ultrasound09/11/2022 laboratory this morning showed sodium 134, potassium 4.3, CO2 22, BUN 26, creatinine 2 up from 1.9, hopefully creatinine is plateauing, renal ultrasound negative.09/12/2022 laboratory this morning showed sodium 134, potassium 4.2, CO2 20, BUN 31, creatinine 2.4 continues to worsen, discussed with ID, AIN is probably the etiology of the unexplained deterioration of his renal function, antibiotics to be adjusted by infectious disease, will give Solu-Medrol 125 mg IV daily for 3 days. Significant lower extremity edema, will start Lasix 20 mg p.o. twice daily.23: pt was seen and examined. Very thirsty. serum creatinine is worsening today. Vancomycin was stopped yesterday and Solu medrol was started. Mild hypovolemic hyponatremia. Will DC lasix and monitor his renal functions. BP is well controlled. 23: pt was seen and examined. Feels better but still thirsty. I stopped hislasix. will start NS at 75 cc for one Leter only. serum creatinine is improving.Received three doses of Solu Medrol a well. BP is on the higher side, likely secondary to steroids. will monitor for now. mild hypovelmic hyponatremia. also could be secondary to hyperglycemia. 09/15/2022 we will give additional dose of Solu-Medrol 125 mg IV today, laboratory this morning showed sodium 132, potassium 4.7, CO2 17, chloride 105, BUN 38, creatinine 2.9, glucose 312, hemoglobin 8.2, platelet 341, blood count 8.7, needs better blood sugar control, if creatinine does not start improving the next couple days will plan for kidney biopsy09/16/2022 laboratory this morning showed sodium 135, potassium 4.5, CO2 20, BUN 60, creatinine 2.7, better down from 2.9, hemoglobin 7.6, platelet 360, blood count 9.5, will give prednisone 80 mg p.o. today, blood pressure is elevated, will add hydralazine 25 mg p.o. 3 times daily, scrotal and LE swelling will giveLasix 40 mg IV x 3Consultants: cardiology, endocrinology, hospitalist, infectious disease, podiatry at 1046 RPT #:[id number] OF REPORTPRProgress [id number]:17:00G.[id number] able for patient ugclJCNLAESHEXQQKA2991-34-86R23:46:21 [facility] 2022-09-16 07:51:00 [id number] kiRqMeFvY65PJdSfLKs1YXd9cwW4358-82-87T66:51:00 [facility] HospitalHospitalist Progress NoteREPORT#:[id number] REPORT STATUS: SignedDATE:09/16/22 TIME: 075 PATIENT: KARMA ROWLAND UNIT #: [id number]#: [id number] [address] [birth year] AGE: 56 SEX: M ATTEND: Mj Vences [facility] AUTHOR: Wilbert Ramires MD * ALL edits or amendments must be made on the electronic/computer document * SubjectiveChief complaint:No acute complaints Review of SystemsAll systems rev neg: except as noted Objective GeneralVS/I O:Vital Signs: Date Time Temp Pulse Resp B/P B/P Pulse O2 O2 Flow FiO2 Mean Ox Delivery Rate 09/16 0722 [...] Urine 1600 1400 PATIENT WEIGHT: Weight (lb): 165Weight (oz): 5.55Weight (kg): 75.000 Medications:Active Meds + DC'd Last 24 HrsDaptomycin (CUBICIN 500MG) 500 MG Q48H IV Sodium Chloride (SODIUM CHLORIDE 0.9%) 50 MLInsulin Human Lispro (HUMALOG) 10 UNIT AC SUBQ Heparin Sodium (HEPARIN 5000 UNITS/ML) 5,000 UNIT Q12HR SUBQ Insulin Glargine (Semglee) 20 UNIT BEDTIME SUBQ Meropenem (MEROPENEM) 500 MG Q8H IV Sterile Water (WATER FOR INJECTION) 10 MLInsulin Glargine (Semglee) 14 UNIT BEDTIME SUBQ (DC) Insulin Human Lispro (HUMALOG) 7 UNIT AC SUBQ (DC) Carvedilol (COREG) 25 MG C BK DIN PO Daptomycin (CUBICIN 500MG) 500 MG Q24H IV (DC) Sodium Chloride (SODIUM CHLORIDE 0.9%) 50 MLMeropenem (MEROPENEM) 500 MG Q12H IV (DC) Sterile Water (WATER FOR INJECTION) 10 MLGabapentin (NEURONTIN) 100 MG Q8HR PO Oxycodone/Acetaminophen (PERCOCET 5/325MG TAB) 2 TAB Q4H PRN PRN PO Ferric Sodium Gluconate Complex (FERRLECIT) 125 MG DAILY IV Sodium Chloride (SODIUM CHLORIDE 0.9%) 100 MLFolic Acid (FOLIC ACID) 2 MG DAILY PO Multivitamins (TAB-A-MOHAN) 1 TAB DAILY PO Furosemide (LASIX 20MG INJ) 20 MG BLOOD-DOSE BETWEEN IV (CKD) Sodium Chloride (SODIUM CHLORIDE) 10 ML ASDIR IV Pantoprazole Sodium (PROTONIX) 40 MG Q12HR IV Polyethylene Glycol (MIRALAX) 17 GM DAILY PO Sennosides (Senna Lax 8.6 MG TABLET) 8.6 MG DAILY PO Sodium Chloride (SODIUM CHLORIDE) 10 ML ASDIR PRN IV Amitriptyline HCl (ELAVIL) 25 MG BEDTIME PO Zinc Oxide (ZINC OXIDE 30 GM OINTMENT) 1 APPLIC DAILY TOPICAL Sterile Water (WATER FOR IRRIGATION) DRESSING CHANGE ASDIR PRN IRR Insulin Human Lispro (HUMALOG) 0 AC HS SUBQ Dextrose/Water (DEXTROSE 10% IN WATER) 125 ML ASDIR PRN IV (CKD) Dextrose/Water (DEXTROSE 10% IN WATER) 250 ML ASDIR PRN IV (CKD) Glucagon (GLUCAGON) 1 MG ASDIR PRN IM Lidocaine (LIDODERM) 1 PATCH DAILY TOPICAL Heparin Sodium (HEPARIN 5000 UNITS/ML) 5,000 UNIT Q8HR SUBQ (DC) Acetaminophen (TYLENOL) 650 MG Q6H PRN PRN PO Bisacodyl (DULCOLAX) 10 MG DAILY PRN PRN RECTAL Docusate Sodium (COLACE) 100 MG Q12H PRN PRN PO Hydralazine HCl (APRESOLINE) 10 MG Q6H PRN PRN IV Ondansetron HCl (ZOFRAN) 4 MG Q6H PRN PRN IV Physical ExamGeneral appearance: alert, awake, orientedHead/Eyes: atraumatic, normocephalicENT: moist mucosal membranesNeck: no JVDCardiovascular: normal heart sounds, regular rate rhythmRespiratory: aerating well, clear to auscultationAbdomen: non-tender, normal bowel soundsGenitourinary: no bladder distentionExtremities: moves all, normal capillary refillMusculoskeletal: normal inspectionNeuro/DIRECTOR OPERATING ROOM: alert, oriented X 3, 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 Considered stroke alert: noSkin: dry, intactPsychiatry: normal affect, normal judgment/insight ResultsFindings/Data:Laboratory Tests 09/16 09/15 09/15 09/15 0553 1937 [...] % (Auto) (14.0 - 32.0 %) 18.6 [place] % (Auto) (4.8 - 9.0 %) 6.7 Eos % (Auto) (0.3 - 3.7 %) 0.2 L Baso % (Auto) (0.0 - 2.0 %) 0.1 Neut # (Auto) (2.0 - 7.6 x10 3/uL) 6.99 Lymph # (Auto) (1.0 - 3.8 x10 3/uL) 1.77 [place] # (Auto) (0.1 - 0.8 x10 3/uL) 0.64 Eos # (Auto) (0.0 - 0.2 x10 3/uL) 0.02 Baso # (Auto) (0.0 - 0.2 x10 3/uL) 0.01 Abs Immat Gran (auto) (0.00 - 0.03 x10 3/uL) 0.10 H Add Manual Diff NO Immature Gran % (0.0 - 2.0 %) 1.0 Nucleated RBC % (0 - 0 %) 0.0 Nucleated RBCs # (Man) (0.0 - 0.1 x10 3/uL) 0.00 Laboratory Tests 09/15 1304 Urines Urine Color (YEL/STRAW) YELLOW Urine Appearance (CLEAR) SL CLOUDY Urine pH (5.0 - 7.0) 5.0 Ur Specific [place] (1.005 - 1.030) 1.013 Urine Protein (NEGATIVE) [...] Random Total Protein (mg/dL) 283 Diagnosis, Assessment PlanConsultants: cardiology, endocrinology, hospitalist, infectious disease, podiatry Free Text DxA P NotesFree text DxA P notes:Gangrene of right foot s/p Below- knee amputation Prostate abscessMRSA bacteremiaHx of Diabetes, Diabetic neuropathyHTNAKI PLANS: Continue with PT/OT per primary Wound care as directedHepain PPXIV ironBP improving now with increased dose: Metoprolol to 25 mg BIDBS better with insulin adjustment. Likely due to steroids started by Nephrologyfor AINpain controlcreatinine continuint to trend downHgb trending down as well. no overt bleeding. continue to monitor at 0538 RPT #:[id number] OF REPORTPRProgress [id number]:51:00G.[id number] able for patient [id number]:38:54 [facility] 2022-09-16 07:30:00 [id number] xYwvHWbclYO/fU8B/WZFKo1l7Cf7072-75-22T10:30:00 [facility] ([facility])Rehab Progress NoteREPORT#:[id number] REPORT STATUS: SignedDATE:09/16/22 TIME: 07 PATIENT: KARMA ROWLAND UNIT #: [id number]#: [id number] [place] [facility] [place]: [birth year] AGE: 56 SEX: M ATTEND: Mj Vences [facility] AUTHOR: Mj Vences MD * ALL edits or amendments must be made on the electronic/computer document * SubjectiveChief complaint:Rehab follow-upPatient feeling well working with therapyMaking good progressStill has edema of BLE and scrotumEating 75-100% at bedside+ BMDenies DICKNES/N/V/D/CP14 systems reviewed and neg. except that above.History of present illness:56 yo HAM with long h/o DM, and HTN who was admitted for fever, flulike symptomsand altered mental status on 08/18. He was doing well until about 3 days prior toadmission when he noted blister to have formed on the dorsum of his foot. His foot started progressively getting more swollen and the blisters started enlarging and extending to his lateral foot and ankle. He started feeling weak and nauseated. He was noted to have altered mentation and was brought to our ER.He was noted to be in DKA with Blood sugars greater than 600. He was seen by podiatry and surgery for BLE wounds and infection. He was treated in ICU for sepsis and DKA. He underwent incisional and excisional debridement of right footand right ankle by podiatry. Patient also found to have prostate abscess underwent transrectal ultrasound aspiration of abscess and transurethral resection of prostate and unroofing of abscess by urology Dr. Du. Endocrinology treated the DKA and blood sugars much improved. Patient's right foot was not salvageable and patient underwent right BKA by Dr. LEROY on 08/28. Patient blood cultures showed MRSA. Patient continued on antibiotics as per ID. MRI of the pelvis and foot completed. Patient required multiple PRBCs for anemia. Patient was found to have a possible small hematoma of the left calf onultrasound. He complains of pain and swelling of the left ankle. Patient hemodynamically stable and plans are to be transferred to stepdown unit. He is on heparin subcu for VTE. After surgery he is now being mobilized by PT and OT.He is wearing a maxine-tech orthotic for right knee/BKA protection. Prior to admission the patient was independent living in a single-story house with his spouse with a few steps up to front and back door. 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 is at bedside. Patient denies nausea, vomiting, fever, chills, chest pain, shortness of breath with dizziness. He is requiring IV Dilaudid for pain control. Mental status back to baseline. Pt is progressing slowly with therapy d/t weakness and pain, self care deficit, decreased endurance and balance, and decreased functional mobility. Pt requiring acute inpt rehab for multidisciplinary team of nursing, therapy, and physicians. Pt iswilling and able to partici- kathleen in 3 hr/day inpt rehab to d/c home safely. Pt's prior level of function was independent. Objective GeneralVS:Vital Signs: Date Time Temp Pulse Resp B/P B/P Pulse O2 O2 Flow FiO2 Mean Ox Delivery Rate 09/16 0722 97.3 77 18 159/79 105.3 96 Room air 09/16 0004 97.5 78 16 147/78 101.2 95 09/15 1939 97.5 77 18 167/84 111.5 96 09/15 1651 97.3 77 18 163/75 104.3 95 PATIENT WEIGHT: Weight (lb): 165Weight (oz): 5.55Weight (kg): 75.000 Medications:Active Meds + DC'd Last 24 HrsFurosemide (LASIX 40 mg/4 mL INJECTION) 40 MG Q8HR IV Hydralazine HCl (APRESOLINE) 25 MG Q8HR PO Daptomycin (CUBICIN 500MG) 500 MG Q48H IV Sodium Chloride (SODIUM CHLORIDE 0.9%) 50 MLPrednisone (predniSONE) 80 MG ONCE ONE PO (DC) Insulin Human Lispro (HUMALOG) 10 UNIT AC SUBQ Heparin Sodium (HEPARIN 5000 UNITS/ML) 5,000 UNIT Q12HR SUBQ Insulin Glargine (Semglee) 20 UNIT BEDTIME SUBQ Meropenem (MEROPENEM) 500 MG Q8H IV Sterile Water (WATER FOR INJECTION) 10 MLInsulin Glargine (Semglee) 14 UNIT BEDTIME SUBQ (DC) Insulin Human Lispro (HUMALOG) 7 UNIT AC SUBQ (DC) Carvedilol (COREG) 25 MG C BK DIN PO Gabapentin (NEURONTIN) 100 MG Q8HR PO Oxycodone/Acetaminophen (PERCOCET 5/325MG TAB) 2 TAB Q4H PRN PRN PO Ferric Sodium Gluconate Complex (FERRLECIT) 125 MG DAILY IV (DC) Sodium Chloride (SODIUM CHLORIDE 0.9%) 100 MLFolic Acid (FOLIC ACID) 2 MG DAILY PO Multivitamins (TAB-A-MOHAN) 1 TAB DAILY PO Furosemide (LASIX 20MG INJ) 20 MG BLOOD-DOSE BETWEEN IV (CKD) Sodium Chloride (SODIUM CHLORIDE) 10 ML ASDIR IV Pantoprazole Sodium (PROTONIX) 40 MG Q12HR IV Polyethylene Glycol (MIRALAX) 17 GM DAILY PO Sennosides (Senna Lax 8.6 MG TABLET) 8.6 MG DAILY PO Sodium Chloride (SODIUM CHLORIDE) 10 ML ASDIR PRN IV Amitriptyline HCl (ELAVIL) 25 MG BEDTIME PO Zinc Oxide (ZINC OXIDE 30 GM OINTMENT) 1 APPLIC DAILY TOPICAL Sterile Water (WATER FOR IRRIGATION) DRESSING CHANGE ASDIR PRN IRR Insulin Human Lispro (HUMALOG) 0 AC HS SUBQ Dextrose/Water (DEXTROSE 10% IN WATER) 125 ML ASDIR PRN IV (CKD) Dextrose/Water (DEXTROSE 10% IN WATER) 250 ML ASDIR PRN IV (CKD) Glucagon (GLUCAGON) 1 MG ASDIR PRN IM Lidocaine (LIDODERM) 1 PATCH DAILY TOPICAL Acetaminophen (TYLENOL) 650 MG Q6H PRN PRN PO Bisacodyl (DULCOLAX) 10 MG DAILY PRN PRN RECTAL Docusate Sodium (COLACE) 100 MG Q12H PRN PRN PO Hydralazine HCl (APRESOLINE) 10 MG Q6H PRN PRN IV Ondansetron HCl (ZOFRAN) 4 MG Q6H PRN PRN IV Physical ExamGeneral appearance: alert, awake, no acute distressPsych: alert, normal affect, oriented x 3HEENT: anicteric, sclera clearNeck: supple, no JVDCardiovascular: S1/S2, no murmurRespiratory: aerating well, clear bilaterallyAbdomen: bowel sounds present, non-distended, soft, non-tenderSkin: no rash, R BKA HEALING. L ankle/foot wrapped with kerlixMusculoskeletal - general: Musculoskeletal - general: swelling (LLE, calve NT, homans neg), BUE 5/5, LLE4/5, R hip 3-Neuro/DIRECTOR OPERATING ROOM: alert, oriented X 3, CNII-XII intact ResultsFindings/Data:Laboratory Tests: 09/16 09/16 09/16 09/15 09/15 1110 0553 0455 1937 1640Chemistry Sodium (134 - 147 mEq/L) 135 Potassium [...] MG/DL) 4.6 Magnesium (1.80 - 2.40 mg/dL) 1.93Hematology WBC (4.5 - 11.0 x10 3/uL) 9.5 [...] % (Auto) (14.0 - 32.0 %) 18.6 [place] % (Auto) (4.8 - 9.0 %) 6.7 Eos % (Auto) (0.3 - 3.7 %) 0.2 L Baso % (Auto) (0.0 - 2.0 %) 0.1 Neut # (Auto) (2.0 - 7.6 x10 3/uL) 6.99 Lymph # (Auto) (1.0 - 3.8 x10 3/uL) 1.77 [place] # (Auto) (0.1 - 0.8 x10 3/uL) 0.64 Eos # (Auto) (0.0 - 0.2 x10 3/uL) 0.02 Baso # (Auto) (0.0 - 0.2 x10 3/uL) 0.01 Abs Immat Gran (auto) (0.00 - 0.03 0.10 Hx10 3/uL) Add Manual Diff NO Immature Gran % (0.0 - 2.0 %) 1.0 Nucleated RBC % (0 - 0 %) 0.0 Nucleated RBCs # (Man) (0.0 - 0.1 0.00x10 3/uL) Diagnosis, Assessment PlanFree Text A P:Assessment:Severe Gas gangrene right foot and right ankle associated with osteomyelitis andnecrotizing fasciitisS/p surgical debridement and washout08/28: S/p right BKA-Dr. Greenberggnificant impairment in self-care, ADLs and functional mobilityImpaired mobility and gaitAcute postoperative pain right BKADiabetic polyneuropathyDKA, DM 2, poorly controlled, A1c greater than 14PADMRSA bacteremia/sepsis-treated on acuteAKISevere hyponatremia-resolvedHTNAcute on chronic anemia requiring multiple transfusions, possible GI bleedLeft calf hematomaEdema and clinical arthritis left ankleEarly decubitus to left heel/DTI dorsal left midfootProstatic abscess 08/26: S/p transrectal ultrasound aspiration of abscess and transurethral resection of prostate and unroofing of abscess09/12: Echo: EF 55-59%, grade 1 diastolic dysfunction09/02: JIMENA negative for vegetationMRSA OF NARES09/08:s/p EGD and colonoscopy. EGD showed mild gastritis. Colonoscopy showed rectal polyp that was resected by snare (tubular adenoma)-repeat colonoscopy in 5 years Plan:-PLOF: Independent with transfers and gait-Amputee rehab program-Continue PT and OT-15/12 rehabilitation nursing care.-Case management for safe discharge planning.-Decubitus prevention-Early decubitus to left heel/DTI dorsal left midfoot-zinc oxide to the foot, foam, offloading, podiatry managing-DVT prophylaxis-subcutaneous heparin-Strict fall and safety precautions-Work on bed mobility, transfer training, ADLs, pre-gait and gait exercises-Increase endurance and strength-Monitor pain with therapies-OOB to chair-Monitor p.o. intake and nutrition, albumin 1.3, prealbumin less than 5, dietaryconsultation, protein supplements to promote xqaqofp-Iroygwdh-L9i 14, tight glycemia control- endocrine on board, insulin adjustments-Endocrinology, ID, podiatry, cardiology, IM consulted-Pain management adjusting pain medications-Anemia, patient required multiple units of PRBCs on acute, FOBT positive-IV Protonix-consult GI-serial H H-no evidence of gross bleeding-discussed with Dr. TrinidadCyhnurro-Dpwfqpsiqhyv-tcvsnrvyy bhzvgnca-RXF-rfafvq-CW Senokot and MiraLAX, DSP-Right HTL-bxeyswy-gdwbrlfb resolved, dressings changed tfhjp-unjgmzs-txkvuaqc DNL-RSVI-UPIZ OF NARES on Bactroban protocol-LLE edema-venous Doppler with complex heterogeneous hypoechoic fluid collectionin the left calf region measuring 8.4, 2.8, 2.5 cm suggestive of hematoma. On low-dose Lasix. Joan wrap LLE-LE edema could be related to hypoalbuminemia leading to third spacing-edema improving-Generalized edema-some shortness of breath and abdominal distention-cardiology gave a dose of IV Lasix-monitor urine output, daily weights-SOB resolved-09/05-venous Doppler of LLE-negative for DVT-Joan wrap dressing and hbcpmvbmy-Nuilet-oawbcbqkkc 8.3, 7.7, 8.2, transfused 2 units of PRBC on 09/05-09/08: s/p EGD and colonoscopy. EGD showed mild gastritis. Colonoscopy showed rectal polyp that was resected by snare. Anemia likely secondary to chronic kidney disease. Consult renal.-Pathology of polyp came back as tubular adenoma. recommend repeating colonoscopy in 5 years as per GI-Consider video capsule endoscopy as outpt if evidence of dropping H/H-Renal ultrasound negative-09/16/2022 laboratory this morning showed sodium 135, potassium 4.5, CO2 20, BUN60, creatinine 2.7, better down from 2.9, hemoglobin 7.6, platelet 360, blood count 9.5, will give prednisone 80 mg p.o. today, blood pressure is elevated, will add hydralazine 25 mg p.o. 3 times daily, scrotal and LE swelling will giveLasix 40 mg IV x 3-as per renal-on Merrem and Daptomycin til / as per ID-Lasix as per nephrology-Completed Aksf-Tedtlz-Rjgxe LLE swelling (not new) and low albumin. may benefit from albumin infusion+ Scwac-WEH-bqdtlbeef opacities in the right mid and lower lung field. Improved left retrocardiac opacities-BNP 297-09/12: Echo-EF 55-60%, indeterminate diastolic function parameters as per cardio-09/16: Blood pressure slightly elevated, started on hydralazine 25 mg every 8 hours. Continue carvedilol monitor blood pressure trend. Cr. 2.7 today, continue monitor. Tolerating physical therapy. Euvolemic by physical examination as per cardio. -Advance therapies as tolerated-discussed treatment plan with patient and -Patient progressing well in therapy. Patient with improved transfers and endurance.-Car transfer training 09/23-Discussed with patient and about renal issues that seem to be improving-Team conference-making good functional progress Progress: ENERGY CONSERVATION, WC MOBILITY, AND BRACE POSITIONING. PATIENT MIN A FOR DONNING SHORTS AND SBA FOR SUPINE TO SIT. PATIENT SET UP/CGA FOR SLIDE BOARD TRANSFER FROM BED TO WC. PATIENT PROPELLED WC 200' X 2 WITH MOD I USING MANUEL UE TO PROPEL. PATIENT TOLERATED SEATED EXERCISE X 20 IN ALL PLANES WITH 3# ANKLE WEIGHT.PATIENT PERFROMED PUSH UP ON WC X 5 WITH VC FOR SEQUEINCING AND SBA. PATIENT MIN A FOR SIT TO STAND X 5 IN PARALLEL BARS. PM RPlease see team note.Plan and goals discussed with the patient. I agree with the teams findingELOS- [09/24] on IV antibiotics until 3DC-Home with -Home healthDME-bedside commode, sliding board, wheelchair, drop arm bedside commode Total time 33 minutes greater than 50% of the time spent examining patient, discussing with patient and about team conference, slight improvement in renal function, on steroids, medical issues, anemia, amputee rehab, discharge plans, rehab plan of care, goals, therapies, progress, labs, medications. EMR and MAR is reviewed. All questions answeredOrders: Procedure Date/time Status OT EXERCISE 15MIN 09/16 UNK Complete Consultants: cardiology, endocrinology, hospitalist, infectious disease, podiatryRehab attestation:Face to face exam completed. Treatment plan discussed with patient. Meets continued stay criteria. Agree with interdisciplinary treatment plan. at 1503 RPT #:[id number] OF REPORTPRProgress [id number]:30:00G.[id number] able for patient rksoGMSSQZLGOBESZL1482-80-90O59:04:06 [facility] 2022-09-16 05:43:00 [id number]+LVlg dMvtHDuF9xAyqPsBQSelgCoYevJB0 qOWRlMdI+Ixs8ZZ86WrevwUo4s57129-05-57V26:43:00 [facility] ([facility])Pain Management Progress NoteREPORT#:[id number] REPORT STATUS: SignedDATE:09/16/22 TIME: 0543 PATIENT: KARMA ROWLAND UNIT #: [id number]#: [id number] [address] [birth year] AGE: 56 SEX: M ATTEND: Mj Vences [facility] AUTHOR: Charlie Quiroga RESEARCH MANUFACTURING OPERATOR * ALL edits or amendments must be made on the electronic/computer document * Charlie Quiroga 09/16/22 0543:SubjectiveChief complaint:Patient seen and examined. Chart/MAR reviewed. Patient is with adequate pain control this morning. Slept well. Pain relieving medications are effective when taken. No side effects at this time. Patient being seen for Acute postoperative pain, right foot and anklegangrene, requiring BKA, Constipation Patient is still requiring medications to help with managing currentproblems. Patient is requiring IV narcotics to help manage breakthrough pain No fever/chills, chest pain, orthopnea, nausea/vomiting, pruritus, orhallucinations.14 point ROS undertaken unremarkable except as noted Objective GeneralVS/I O:Vital SignsDate Temp Pulse Resp B/P B/P Mean Pulse Ox UcG725/24-09/16 97.3-97.5 77-78 16-18 147-167/75-84 101.2-111.5 95-96 Last [...] Output, Urine 1400 PATIENT WEIGHT: Weight (lb): 165Weight (oz): 5.55Weight (kg): 75.000 Medications:Active Meds + DC'd Last 24 HrsDaptomycin (CUBICIN 500MG) 500 MG Q48H IV Sodium Chloride (SODIUM CHLORIDE 0.9%) 50 MLInsulin Human Lispro (HUMALOG) 10 UNIT AC SUBQ Heparin Sodium (HEPARIN 5000 UNITS/ML) 5,000 UNIT Q12HR SUBQ Insulin Glargine (Semglee) 20 UNIT BEDTIME SUBQ Meropenem (MEROPENEM) 500 MG Q8H IV Sterile Water (WATER FOR INJECTION) 10 MLMethylprednisolone Sodium Succinate (Solu-Medrol 125 MG Vial) 125 MG ONCE ONE IV (DC) Insulin Glargine (Semglee) 14 UNIT BEDTIME SUBQ (DC) Insulin Human Lispro (HUMALOG) 7 UNIT AC SUBQ (DC) Carvedilol (COREG) 25 MG C BK DIN PO Daptomycin (CUBICIN 500MG) 500 MG Q24H IV (DC) Sodium Chloride (SODIUM CHLORIDE 0.9%) 50 MLMeropenem (MEROPENEM) 500 MG Q12H IV (DC) Sterile Water (WATER FOR INJECTION) 10 MLGabapentin (NEURONTIN) 100 MG Q8HR PO Oxycodone/Acetaminophen (PERCOCET 5/325MG TAB) 2 TAB Q4H PRN PRN PO Ferric Sodium Gluconate Complex (FERRLECIT) 125 MG DAILY IV Sodium Chloride (SODIUM CHLORIDE 0.9%) 100 MLFolic Acid (FOLIC ACID) 2 MG DAILY PO Multivitamins (TAB-A-MOHAN) 1 TAB DAILY PO Furosemide (LASIX 20MG INJ) 20 MG BLOOD-DOSE BETWEEN IV (CKD) Sodium Chloride (SODIUM CHLORIDE) 10 ML ASDIR IV Pantoprazole Sodium (PROTONIX) 40 MG Q12HR IV Polyethylene Glycol (MIRALAX) 17 GM DAILY PO Sennosides (Senna Lax 8.6 MG TABLET) 8.6 MG DAILY PO Sodium Chloride (SODIUM CHLORIDE) 10 ML ASDIR PRN IV Amitriptyline HCl (ELAVIL) 25 MG BEDTIME PO Zinc Oxide (ZINC OXIDE 30 GM OINTMENT) 1 APPLIC DAILY TOPICAL Sterile Water (WATER FOR IRRIGATION) DRESSING CHANGE ASDIR PRN IRR Insulin Human Lispro (HUMALOG) 0 AC HS SUBQ Dextrose/Water (DEXTROSE 10% IN WATER) 125 ML ASDIR PRN IV (CKD) Dextrose/Water (DEXTROSE 10% IN WATER) 250 ML ASDIR PRN IV (CKD) Glucagon (GLUCAGON) 1 MG ASDIR PRN IM Lidocaine (LIDODERM) 1 PATCH DAILY TOPICAL Heparin Sodium (HEPARIN 5000 UNITS/ML) 5,000 UNIT Q8HR SUBQ (DC) Acetaminophen (TYLENOL) 650 MG Q6H PRN PRN PO Bisacodyl (DULCOLAX) 10 MG DAILY PRN PRN RECTAL Docusate Sodium (COLACE) 100 MG Q12H PRN PRN PO Hydralazine HCl (APRESOLINE) 10 MG Q6H PRN PRN IV Ondansetron HCl (ZOFRAN) 4 MG Q6H PRN PRN IV Physical ExamGeneral appearance: alert, awake, oriented, no acute distressHead/eyes: atraumatic, EOMI, normocephalic, normal conjunctiva/sclera, PERRLAENT: normal ear left, normal ear right, normal nose, normal pharynx, moist mucosal membranesNeck: full range of motion, no lymphadenopathy, supple/no meningismusCardiovascular: regular rate rhythmRespiratory: clear to auscultation, no distress, aerating wellAbdomen: soft, non-tender, no distention, active bowel sounds in all quarants. Abdomen quadrantsLLQ normal bowel sounds, LUQ normal bowel sounds, RLQ normal bowel sounds, RUQ normal bowel soundsExtremities: moves all, no edema, pedal pulsesNeuro/DIRECTOR OPERATING ROOM: 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, no sensory deficits, CNII-XII grossly intact Considered stroke alert: noSkin: dry, normal turgor, no rash, warmPsychiatry: normal affect ResultsFindings/data:Laboratory Tests: 09/15 09/15 09/15 09/15 1937 1640 1304 1154 Chemistry POC Glucose (70 - 110 MG/DL) 124 H 137 H 126 H Urines Urine Color (YEL/STRAW) YELLOW Urine Appearance (CLEAR) SL CLOUDY Urine pH (5.0 - 7.0) 5.0 Ur Specific [place] (1.005 - 1.030) 1.013 Urine Protein (NEGATIVE) [...] Random Total Protein (mg/dL) 283 Diagnosis, Assessment PlanFree text A P:A/P:Patient is a 56 year old male who presents with: Recent prostate abscess-Status post TURP with unroofing of abscess-IV antibiotics with vancomycin until 09-24-2022 Acute postoperative pain, right foot and ankle gangrene, requiring BKA-Patient is at risk for further amputations or loss of limb due to comorbid conditions-Status post right BKA 08/28/2022-DC Sheldon 10/325 1 tablet p.o. every 4 hours as needed pain scale 4 10-DC Dilaudid 0.5 mg IV daily as needed pain scale 7 10, second line therapy (09/13)-Tylenol 650 mg p.o. every 6 hours as needed pain scale 1 3-Percocet 10/325mg every 4 hours as needed, pain scale 4-10 (09/10)-Lidoderm patch to left ankle daily-IV antibiotics with vancomycin until 1-8-4352-Local wound care-manageable Diabetic peripheral neuropathy-amitriptyline 25mg PO QHS-Gabapentin 100mg every 8 hours (09/10)-manageable Hypertension-We will monitor hypertension and tachycardia due to pain, and hypotension as well as bradycardia secondary over sedation with narcotics-Hydralazine as needed Elevated LFTs-08/20/22-AST 51, ALT 22-09/03/2022-AST 15, ALT 7-Patient will require close monitoring since he is using narcotics with Tylenol Impaired functional mobility, balance, gait, and endurance-PT/OT Antalgic/Impaired gait-PT/OT-Improve strength, endurance, self-care, gait, balance, ADLs-Fall precautions per unit protocol-Pain medications as outlined above Constipation-We will monitor while utilizing opioid narcotic medications.-Adequate fluid intake also discussed.-Colace 100 mg p.o. twice daily as needed-Dulcolax 10 mg rectally daily as needed-Senna lax 8.6mg daily-Miralax 17gm daily-manageable Disposition: Past Medical History: Prostate abscess, right foot foot and ankle gangrene, diabetes, hypertension, hyperlipidemiaPast Surgical History: TURP, right BKAFamily History: NoncontributorySocial History: Denies tobacco, alcohol, or drug useAllergies: NKDA Patient has failed conservative medical therapy.Patient will require monitoring while utilize narcotic medications for any adverse effects, and will adjust as neededPlan of care discussed with patient and nurseAll diagnostics of last 24 hours been reviewed. Risks versus benefits of opioid medications were reviewed to include, but not limited to respiratory depression, accidental overdose, altered mental status, sudden , constipation which could result in bowel obstruction, seizures, withdrawal, dependency addiction, risk for falls. Case discussed with Dr Ng whom agrees. Thank you for the consultation. [place] DISABILITY HEARING OFFICER:-database searched, no information found Kingsley Ng 10/04/22 1646:Attestations Physician AttestationAgree w/findings plan:The patient was seen and examined by Charlie Quiroga. I personally developed thecare plan, which was continued by the mid-level provider. I was immediately available. at 0725 at 1648 RPT #:[id number] OF REPORTPRProgress dffm9317-30-86W45:43:00G.[id number] able for patient ayjsGRTAUNDGGRFGDD8457-48-18G35:26:10 [facility] 2022-09-15 20:52:00 [id number] aU5JBUJUCWNcNCOmwFGRUqH39aMkP 5b7cRG5ma9zZzCAl4WrUoIEZjEB3948-62-59N90:52:00 [facility])Podiatry Progress NoteREPORT#:[id number] REPORT STATUS: SignedDATE:09/15/22 TIME: 2051 PATIENT: KARMA ROWLAND UNIT #: [id number]#: [id number] [address] [birth year] AGE: 56 SEX: M ATTEND: Mj Vences [facility] AUTHOR: Liam Pedersen DPM * ALL edits or amendments must be made on the electronic/computer document * SubjectiveChief complaint:left heel ulcer. left ankle painPatient reports: no chest pain, no cough, no diarrhea, no dizziness, no headache, no itching, no nausea Objective GeneralVS:Last Documented: Result Date Time Pulse Ox 96 09/15 1938 B/P 167/84 09/15 1938 B/P Mean 111.5 09/15 1938 Temp 36.4 09/15 1938 Pulse 77 09/15 1938 Resp 18 09/15 1938 O2 Delivery Nasal cannula 09/14 2330 O2 Flow Rate 2 09/08 1322 PATIENT WEIGHT: Weight (lb): 165Weight (oz): 5.55Weight (kg): 75.000 Medications:Active Meds + DC'd Last 24 HrsDaptomycin (CUBICIN 500MG) 500 MG Q48H IV Sodium Chloride (SODIUM CHLORIDE 0.9%) 50 MLInsulin Human Lispro (HUMALOG) 10 UNIT AC SUBQ Heparin Sodium (HEPARIN 5000 UNITS/ML) 5,000 UNIT Q12HR SUBQ Insulin Glargine (Semglee) 20 UNIT BEDTIME SUBQ Meropenem (MEROPENEM) 500 MG Q8H IV Sterile Water (WATER FOR INJECTION) 10 MLMethylprednisolone Sodium Succinate (Solu-Medrol 125 MG Vial) 125 MG ONCE ONE IV (DC) Insulin Glargine (Semglee) 14 UNIT BEDTIME SUBQ (DC) Insulin Human Lispro (HUMALOG) 7 UNIT AC SUBQ (DC) Carvedilol (COREG) 25 MG C BK DIN PO Daptomycin (CUBICIN 500MG) 500 MG Q24H IV (DC) Sodium Chloride (SODIUM CHLORIDE 0.9%) 50 MLMeropenem (MEROPENEM) 500 MG Q12H IV (DC) Sterile Water (WATER FOR INJECTION) 10 MLGabapentin (NEURONTIN) 100 MG Q8HR PO Oxycodone/Acetaminophen (PERCOCET 5/325MG TAB) 2 TAB Q4H PRN PRN PO Ferric Sodium Gluconate Complex (FERRLECIT) 125 MG DAILY IV Sodium Chloride (SODIUM CHLORIDE 0.9%) 100 MLFolic Acid (FOLIC ACID) 2 MG DAILY PO Multivitamins (TAB-A-MOHAN) 1 TAB DAILY PO Furosemide (LASIX 20MG INJ) 20 MG BLOOD-DOSE BETWEEN IV (CKD) Sodium Chloride (SODIUM CHLORIDE) 10 ML ASDIR IV Pantoprazole Sodium (PROTONIX) 40 MG Q12HR IV Polyethylene Glycol (MIRALAX) 17 GM DAILY PO Sennosides (Senna Lax 8.6 MG TABLET) 8.6 MG DAILY PO Sodium Chloride (SODIUM CHLORIDE) 10 ML ASDIR PRN IV Amitriptyline HCl (ELAVIL) 25 MG BEDTIME PO Zinc Oxide (ZINC OXIDE 30 GM OINTMENT) 1 APPLIC DAILY TOPICAL Sterile Water (WATER FOR IRRIGATION) DRESSING CHANGE ASDIR PRN IRR Insulin Human Lispro (HUMALOG) 0 AC HS SUBQ Dextrose/Water (DEXTROSE 10% IN WATER) 125 ML ASDIR PRN IV (CKD) Dextrose/Water (DEXTROSE 10% IN WATER) 250 ML ASDIR PRN IV (CKD) Glucagon (GLUCAGON) 1 MG ASDIR PRN IM Lidocaine (LIDODERM) 1 PATCH DAILY TOPICAL Heparin Sodium (HEPARIN 5000 UNITS/ML) 5,000 UNIT Q8HR SUBQ (DC) Acetaminophen (TYLENOL) 650 MG Q6H PRN PRN PO Bisacodyl (DULCOLAX) 10 MG DAILY PRN PRN RECTAL Docusate Sodium (COLACE) 100 MG Q12H PRN PRN PO Hydralazine HCl (APRESOLINE) 10 MG Q6H PRN PRN IV Ondansetron HCl (ZOFRAN) 4 MG Q6H PRN PRN IV I O:24 hour I O ending at 0700: 09/15 0700 09/14 1900 Intake Total Output Total 1000 Balance -1000 Number 0 Incontinent Voids Number Voids 0 Output, Urine 1000 Dietitian nutrition assessmentThe data set between the solid lines has been imported from the dietitian's assessment. BMI Calculated: 26.7Nutrition related diagnosis: Nutrition diagnosis details: Nutrition problem: Altered nutrition labsNutrition etiology: DMNutrition signs and symptoms: HYPER/HYPOGLYCEMIA, A1C >14Nutrition prescription: CONTINUE DM DIETDietitian name: You Palmer, DIETAssessment completed: 09/09/22 Physical ExamGeneral appearance: alert, awake, oriented, conversational, mental status normalWound/incision: Location:left foot Site condition: dp/pt 2/4 left. light touch decreased left foot. ulcer starting at posterior left heel. eccymosis noted. early likely stage 1. left ankle has edema. pain with aggressive ROM left ankle. dorsal left midfoot is starting to have tissue injuryLE vascular pulse assess:2+ L posterior tibialis, 2+ L dorsalis pedis Considered stroke alert: noUlcer: Location: DTI dorsal left midfoot ResultsFindings/Data:Laboratory Tests: 09/15 09/15 09/15 09/15 1937 1640 1304 1154 Chemistry POC Glucose (70 - 110 MG/DL) 124 H 137 H 126 H Urines Urine Color (YEL/STRAW) YELLOW Urine Appearance (CLEAR) SL CLOUDY Urine pH (5.0 - 7.0) 5.0 Ur Specific [place] (1.005 - 1.030) 1.013 Urine Protein (NEGATIVE) [...] Random Total Protein (mg/dL) 283 09/15 09/15 9519 0178 Chemistry Sodium (134 - 147 mEq/L) 132 [...] (Auto) (14.0 - 32.0 %) 11.3 L [place] % (Auto) (4.8 - 9.0 %) 3.2 L Eos % (Auto) (0.3 - 3.7 %) 0.0 L Baso % (Auto) (0.0 - 2.0 %) 0.1 Neut # (Auto) (2.0 - 7.6 x10 3/uL) 7.35 Lymph # (Auto) (1.0 - 3.8 x10 3/uL) 0.98 L [place] # (Auto) (0.1 - 0.8 x10 3/uL) 0.28 Eos # (Auto) (0.0 - 0.2 x10 3/uL) 0.00 Baso # (Auto) (0.0 - 0.2 x10 3/uL) 0.01 Abs Immat Gran (auto) (0.00 - 0.03 x10 3/uL) 0.04 H Add Manual Diff NO Immature Gran % (0.0 - 2.0 %) 0.5 Nucleated RBC % (0 - 0 %) 0.0 Nucleated RBCs # (Man) (0.0 - 0.1 x10 3/uL) 0.00 Diagnosis, Assessment PlanFree Text A P:DM with neuropathyearly decub ulcer left heelOA/edema left ankleearly ulcer/DTI dorsal left midfoot zinc oxide to foot and heelfoam to heelon IV abxon PO gabapentinoffloading bootace wraps to ankle, only when OOB with therapy. zinc oxide interchange with bactroban ( applied to dorsal left midfoot early ulcer)Consultants: cardiology, endocrinology, hospitalist, infectious disease, podiatry at 2053 RPT #:[id number] OF REPORTPRProgress otut4805-36-03P33:52:00G.[id number] able for patient ojbbCXVSKFXYTPQGWC7473-62-57R46:54:00 [facility] 2022-09-15 17:24:00 [id number]/ZXeji zkOV2xeNddvqVlIWOVlZpcI60y9j0 tFtyhebsmqa/87ElVmpGI03dbC95356-65-11P14:24:00 [facility])Endocrinology Progress NoteREPORT#:[id number] REPORT STATUS: SignedDATE:09/15/22 TIME: 1723 PATIENT: KARMA ROWLAND UNIT #: [id number]#: [id number] [address] [birth year] AGE: 56 SEX: M ATTEND: Mj Vences MDADM AUTHOR: Braxton Chapin MD * ALL edits or amendments must be made on the electronic/computer document * SubjectivePatient reports: no complaints Objective GeneralVS:Last Documented: Result Date Time Pulse Ox 95 09/15 1651 B/P 163/75 09/15 1651 B/P Mean 104.3 09/15 1651 Temp 36.3 09/15 1651 Pulse 77 09/15 1651 Resp 18 09/15 1651 O2 Delivery Nasal cannula 09/14 2331 O2 Flow Rate 2 09/08 1322 PATIENT WEIGHT: Weight (lb): 165Weight (oz): 5.55Weight (kg): 75.000 Medications:Active Meds + DC'd Last 24 HrsDaptomycin (CUBICIN 500MG) 500 MG Q48H IV Sodium Chloride (SODIUM CHLORIDE 0.9%) 50 MLHeparin Sodium (HEPARIN 5000 UNITS/ML) 5,000 UNIT Q12HR SUBQ Meropenem (MEROPENEM) 500 MG Q8H IV Sterile Water (WATER FOR INJECTION) 10 MLMethylprednisolone Sodium Succinate (Solu-Medrol 125 MG Vial) 125 MG ONCE ONE IV (DC) Insulin Glargine (Semglee) 14 UNIT BEDTIME SUBQ Insulin Human Lispro (HUMALOG) 7 UNIT AC SUBQ Carvedilol (COREG) 25 MG C BK DIN PO Daptomycin (CUBICIN 500MG) 500 MG Q24H IV (DC) Sodium Chloride (SODIUM CHLORIDE 0.9%) 50 MLMeropenem (MEROPENEM) 500 MG Q12H IV (DC) Sterile Water (WATER FOR INJECTION) 10 MLGabapentin (NEURONTIN) 100 MG Q8HR PO Oxycodone/Acetaminophen (PERCOCET 5/325MG TAB) 2 TAB Q4H PRN PRN PO Ferric Sodium Gluconate Complex (FERRLECIT) 125 MG DAILY IV Sodium Chloride (SODIUM CHLORIDE 0.9%) 100 MLFolic Acid (FOLIC ACID) 2 MG DAILY PO Multivitamins (TAB-A-MOHAN) 1 TAB DAILY PO Furosemide (LASIX 20MG INJ) 20 MG BLOOD-DOSE BETWEEN IV (CKD) Sodium Chloride (SODIUM CHLORIDE) 10 ML ASDIR IV Pantoprazole Sodium (PROTONIX) 40 MG Q12HR IV Polyethylene Glycol (MIRALAX) 17 GM DAILY PO Sennosides (Senna Lax 8.6 MG TABLET) 8.6 MG DAILY PO Sodium Chloride (SODIUM CHLORIDE) 10 ML ASDIR PRN IV Amitriptyline HCl (ELAVIL) 25 MG BEDTIME PO Zinc Oxide (ZINC OXIDE 30 GM OINTMENT) 1 APPLIC DAILY TOPICAL Sterile Water (WATER FOR IRRIGATION) DRESSING CHANGE ASDIR PRN IRR Insulin Human Lispro (HUMALOG) 0 AC HS SUBQ Dextrose/Water (DEXTROSE 10% IN WATER) 125 ML ASDIR PRN IV (CKD) Dextrose/Water (DEXTROSE 10% IN WATER) 250 ML ASDIR PRN IV (CKD) Glucagon (GLUCAGON) 1 MG ASDIR PRN IM Lidocaine (LIDODERM) 1 PATCH DAILY TOPICAL Heparin Sodium (HEPARIN 5000 UNITS/ML) 5,000 UNIT Q8HR SUBQ (DC) Acetaminophen (TYLENOL) 650 MG Q6H PRN PRN PO Bisacodyl (DULCOLAX) 10 MG DAILY PRN PRN RECTAL Docusate Sodium (COLACE) 100 MG Q12H PRN PRN PO Hydralazine HCl (APRESOLINE) 10 MG Q6H PRN PRN IV Ondansetron HCl (ZOFRAN) 4 MG Q6H PRN PRN IV Physical ExamGeneral appearance: alert, awake Diagnosis, Assessment PlanHospital course to date:Laboratory Tests: 09/15 09/15 09/15 09/15 1640 1304 1154 0519 Chemistry POC Glucose (70 - 110 MG/DL) 137 H 126 H 309 H Urines Urine Color (YEL/STRAW) YELLOW Urine Appearance (CLEAR) SL CLOUDY Urine pH (5.0 - 7.0) 5.0 Ur Specific [place] (1.005 - 1.030) 1.013 Urine Protein (NEGATIVE) [...] (Auto) (14.0 - 32.0 %) 11.3 L [place] % (Auto) (4.8 - 9.0 %) 3.2 L Eos % (Auto) (0.3 - 3.7 %) 0.0 L Baso % (Auto) (0.0 - 2.0 %) 0.1 Neut # (Auto) (2.0 - 7.6 x10 3/uL) 7.35 Lymph # (Auto) (1.0 - 3.8 x10 3/uL) 0.98 L [place] # (Auto) (0.1 - 0.8 x10 3/uL) 0.28 Eos # (Auto) (0.0 - 0.2 x10 3/uL) 0.00 Baso # (Auto) (0.0 - 0.2 x10 3/uL) 0.01 Abs Immat Gran (auto) (0.00 - 0.03 x10 3/uL) 0.04 H Add Manual Diff NO Immature Gran % (0.0 - 2.0 %) 0.5 Nucleated RBC % (0 - 0 %) 0.0 Nucleated RBCs # (Man) (0.0 - 0.1 x10 3/uL) 0.00 Microbiology: Date/Time Procedure - Status Source Growth 09/15 0515 MRSA DNA Surveillance Screen - COMP NASAL Laboratory Tests: 09/14 09/14 09/14 09/14 09/13 1130 0736 0550 0504 1937Chemistry Sodium (134 - 147 mEq/L) 132 L [...] H Calcium (8.0 - 10.5 mg/dL) 7.5 LHematology WBC (4.5 - 11.0 x10 3/uL) 9.5 [...] (Auto) (14.0 - 32.0 %) 13.9 L [place] % (Auto) (4.8 - 9.0 %) 5.1 Eos % (Auto) (0.3 - 3.7 %) 0.0 L Baso % (Auto) (0.0 - 2.0 %) 0.1 Neut # (Auto) (2.0 - 7.6 x10 3/uL) 7.58 Lymph # (Auto) (1.0 - 3.8 x10 3/uL) 1.31 [place] # (Auto) (0.1 - 0.8 x10 3/uL) 0.48 Eos # (Auto) (0.0 - 0.2 x10 3/uL) 0.00 Baso # (Auto) (0.0 - 0.2 x10 3/uL) 0.01 Abs Immat Gran (auto) (0.00 - 0.03 0.07 Hx10 3/uL) Add Manual Diff NO Immature Gran % (0.0 - 2.0 %) 0.7 Nucleated RBC % (0 - 0 %) 0.0 Nucleated RBCs # (Man) (0.0 - 0.1 0.00x10 3/uL) 09/13 1629 Chemistry POC Glucose (70 [...] (Auto) (14.0 - 32.0 %) 10.4 L [place] % (Auto) (4.8 - 9.0 %) 3.5 L Eos % (Auto) (0.3 - 3.7 %) 0.0 L Baso % (Auto) (0.0 - 2.0 %) 0.1 Neut # (Auto) (2.0 - 7.6 x10 3/uL) 8.34 H Lymph # (Auto) (1.0 - 3.8 x10 3/uL) 1.02 [place] # (Auto) (0.1 - 0.8 x10 3/uL) 0.34 Eos # (Auto) (0.0 - 0.2 x10 3/uL) 0.00 Baso # (Auto) (0.0 - 0.2 x10 3/uL) 0.01 Abs Immat Gran (auto) (0.00 - 0.03 x10 3/uL) 0.07 H Add Manual Diff NO Immature Gran % (0.0 - 2.0 %) 0.7 Nucleated RBC % (0 - 0 %) 0.0 Nucleated RBCs # (Man) (0.0 - 0.1 x10 3/uL) 0.00 Microbiology: Date/Time Procedure - Status Source Growth [...] % (Auto) (14.0 - 32.0 %) 15.0 [place] % (Auto) (4.8 - 9.0 %) 7.9 Eos % (Auto) (0.3 - 3.7 %) 3.8 H Baso % (Auto) (0.0 - 2.0 %) 0.3 Neut # (Auto) (2.0 - 7.6 x10 3/uL) 6.34 Lymph # (Auto) (1.0 - 3.8 x10 3/uL) 1.31 [place] # (Auto) (0.1 - 0.8 x10 3/uL) 0.69 Eos # (Auto) (0.0 - 0.2 x10 3/uL) 0.33 H Baso # (Auto) (0.0 - 0.2 x10 3/uL) 0.03 Abs Immat Gran (auto) (0.00 - 0.03 x10 3/uL) 0.06 H Add Manual Diff NO Immature Gran % (0.0 - 2.0 %) 0.7 Nucleated RBC % (0 - 0 %) 0.0 Nucleated RBCs # (Man) (0.0 - 0.1 x10 3/uL) 0.00 Toxicology Random Vancomycin (mcg/mL) 16.7 Laboratory Tests: 09/11 09/11 09/11 09/11 09/11 1532 1445 1114 0541 0445Chemistry Sodium (134 - 147 mEq/L) 134 Potassium [...] MG/DL) 4.7 Magnesium (1.80 - 2.40 mg/dL) 1.90Hematology WBC (4.5 - 11.0 x10 3/uL) 7.9 [...] % (Auto) (14.0 - 32.0 %) 16.1 [place] % (Auto) (4.8 - 9.0 %) 9.1 H Eos % (Auto) (0.3 - 3.7 %) 5.6 H Baso % (Auto) (0.0 - 2.0 %) 0.5 Neut # (Auto) (2.0 - 7.6 x10 3/uL) 5.35 Lymph # (Auto) (1.0 - 3.8 x10 3/uL) 1.27 [place] # (Auto) (0.1 - 0.8 x10 3/uL) 0.72 Eos # (Auto) (0.0 - 0.2 x10 3/uL) 0.44 H Baso # (Auto) (0.0 - 0.2 x10 3/uL) 0.04 Abs Immat Gran (auto) (0.00 - 0.03 0.06 Hx10 3/uL) Add Manual Diff NO Immature Gran % (0.0 - 2.0 %) 0.8 Nucleated RBC % (0 - 0 %) 0.0 Nucleated RBCs # (Man) (0.0 - 0.1 0.00x10 3/uL)Toxicology Random Vancomycin (mcg/mL) 18.3 09/10 1851 Chemistry POC Glucose (70 - 110 MG/DL) 97 Laboratory Tests: 09/10 09/10 09/10 09/10 09/10 1715 1625 1430 1007 0545Chemistry Sodium (134 - 147 mEq/L) 135 Potassium [...] MG/DL) 4.6 Magnesium (1.80 - 2.40 mg/dL) 1.89Hematology WBC (4.5 - 11.0 x10 3/uL) 8.6 [...] % (Auto) (14.0 - 32.0 %) 15.5 [place] % (Auto) (4.8 - 9.0 %) 8.5 Eos % (Auto) (0.3 - 3.7 %) 5.5 H Baso % (Auto) (0.0 - 2.0 %) 0.4 Neut # (Auto) (2.0 - 7.6 x10 3/uL) 5.94 Lymph # (Auto) (1.0 - 3.8 x10 3/uL) 1.33 [place] # (Auto) (0.1 - 0.8 x10 3/uL) 0.73 Eos # (Auto) (0.0 - 0.2 x10 3/uL) 0.47 H Baso # (Auto) (0.0 - 0.2 x10 3/uL) 0.03 Abs Immat Gran (auto) (0.00 - 0.03 0.06 Hx10 3/uL) Add Manual Diff NO Immature Gran % (0.0 - 2.0 %) 0.7 Nucleated RBC % (0 - 0 %) 0.0 Nucleated RBCs # (Man) (0.0 - 0.1 0.00x10 3/uL)Toxicology Random Vancomycin (mcg/mL) 15.7 09/10 09/09 0541 1911 Chemistry POC Glucose (70 - 110 MG/DL) 154 H 102 Recent Impressions:ULTRASOUND - US RETROPERITONEAL COM 09/10 1311 Report Impression - Status: SIGNED Entered: 09/10/2022 1503 IMPRESSION: No acute findings. Impression By: Yared Mares M.D. Laboratory Tests: 09/09 09/09 09/09 09/09 09/09 [...] % (Auto) (14.0 - 32.0 %) 16.1 [place] % (Auto) (4.8 - 9.0 %) 9.2 H Eos % (Auto) (0.3 - 3.7 %) 4.7 H Baso % (Auto) (0.0 - 2.0 %) 0.4 Neut # (Auto) (2.0 - 7.6 x10 3/uL) 6.38 Lymph # (Auto) (1.0 - 3.8 x10 3/uL) 1.49 [place] # (Auto) (0.1 - 0.8 x10 3/uL) 0.85 H Eos # (Auto) (0.0 - 0.2 x10 3/uL) 0.43 H Baso # (Auto) (0.0 - 0.2 x10 3/uL) 0.04 Abs Immat Gran (auto) (0.00 - 0.03 x10 3/uL) 0.05 H Add Manual Diff NO Immature Gran % (0.0 - 2.0 %) 0.5 Nucleated RBC % (0 - 0 %) 0.0 Nucleated RBCs # (Man) (0.0 - 0.1 x10 3/uL) 0.00 Retic Count (auto) (0.3 - 2.3 [...] (Auto) (14.0 - 32.0 %) 13.7 L [place] % (Auto) (4.8 - 9.0 %) 7.2 Eos % (Auto) (0.3 - 3.7 %) 4.8 H Baso % (Auto) (0.0 - 2.0 %) 0.3 Neut # (Auto) (2.0 - 7.6 x10 3/uL) 6.64 Lymph # (Auto) (1.0 - 3.8 x10 3/uL) 1.24 [place] # (Auto) (0.1 - 0.8 x10 3/uL) 0.65 Eos # (Auto) (0.0 - 0.2 x10 3/uL) 0.43 H Baso # (Auto) (0.0 - 0.2 x10 3/uL) 0.03 Abs Immat Gran (auto) (0.00 - 0.03 x10 3/uL) 0.06 H Add Manual Diff NO Immature Gran % (0.0 - 2.0 %) 0.7 Nucleated RBC % (0 - 0 %) 0.0 Nucleated RBCs # (Man) (0.0 - 0.1 x10 3/uL) 0.00 Laboratory Tests: 09/07 09/07 09/07 09/07 09/07 1554 1137 1127 0618 0510 Chemistry Creatinine (0.6 - 1.3 mg/dL) 1.4 H POC Glucose (70 - 110 MG/DL) 112 H 51 L 42 L 135 H Hematology Hgb (12.5 - 16.9 [...] 173 Occult Blood - COMP STOOL Recent Impressions:RADIOLOGY - XR ABDOMEN 1V (KUB) 09/04 1648 Report Impression - Status: SIGNED Entered: 09/04/20221756 IMPRESSION: Benign appearance of the abdomen.Impression By: [email or web address] - Roger Parra M.D.ULTRASOUND - DUP VEIN UNI/LTD 09/05 1146 Report Impression - Status: SIGNED Entered: 09/05/2022 1333 IMPRESSION: 1. No evidence of deep vein thrombosis. 2. Complex heterogeneous hypoechoic fluid collection in the left calf region measuring 8.4 x 2.8 x 2.5 cm; there is no internal vascularity or peripheral hyperemia. May represent a hematoma.Impression By: [email or web address] - Mert Ga M.D.RADIOLOGY - XR CHEST 1 V 09/05 1432 Report Impression - Status: SIGNED Entered: 09/05/2022 1515 IMPRESSION: Minimal bibasilar pulmonary opacitiesImpression By: TipTDO Cr Mares M.D. Laboratory Tests: 09/04 09/04 09/04 09/04 09/04 [...] COLB STOOL 1.Diabetes mellitus type 2 uncontrolled complications.2. Status post right BKA3. Status post gangrene of the right foot.4. Sepsis5. Prostate abscess.6. AnemiaBlood sugar 312-309 mg/dL.H/H 8.11/17.Adjust insulin dose.PT and OT. at 1724 RPT #:[id number] OF REPORTPRProgress [id number]:24:00G.[id number] able for patient fzmlDFZMAZBZTEEGFJ6859-40-11H19:25:25 [facility] 2022-09-15 16:24:00 [id number] n/giM64NJ+yTvUoZR6ngz+Lhzv0MI dytEx6UGpn/LXtRXQowGWfdCuca4199-10-32S25:24:00 [facility] Progress NoteREPORT#:[id number] REPORT STATUS: SignedDATE:09/15/22 TIME: 162 PATIENT: KARMA ROWLAND UNIT #: [id number]#: [id number] [address] [birth year] AGE: 56 SEX: M [facility] AUTHOR: Kassie Avitia MD * ALL edits or amendments must be made on the electronic/computer document * SubjectiveHPI:Patient is a 56-year-old male with history of diabetes mellitus type 2 and hypertension who was initially admitted for altered mental status and right-sided foot infection. 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 The patient is anemic with current Hgb 7.1. He has received a total of 3 units pRBCs during this hospitalization. KUB on 09/04 was negative for acute GI process. The patient denies overt GIB, dark tarry stools, nausea, abdominal pain, or vomiting. He has never had EGD orcolonoscopy. 09/06: No complaints today. Hemoglobin stable. No overt GI bleed. Plan for colonoscopy and endoscopy on Thursday 09/07: No complaints today. No overt GI bleed. Planning for colonoscopy and endoscopy tomorrow 09/08: EGD mild gastritis. colonoscopy rectal polyp s/p snare. No other abnormalities 09/09: doing well. Seen at the gym. No bleeding. 09/10: Doing well. No bleeding. tolerating diet. Movig bowels 09/11: doing well. States his leg swelling is better. Tolerating diet. having normal BM 09/12: dooing well. doing work-out at the gym. Tolerating diet. Normal BMs. Stable H/-Sitting up in wheelchair, family at bedside. Denies n/v/abd pain/GIB 09/15: Doing well. H/H stable. No melena or BRBPR. No nausea or vomiting. Appetite is well Objective Physical ExamHEENT: atraumatic, normocephalicNeck: full range of motion, non-tenderRespiratory: symmetric expansion, no distressAbdomen: non-tender, normal bowel sounds, soft, no distention, no guardingExtremities: right BKA Considered stroke alert: noSkin: dry Diagnosis, Assessment PlanFree Text A P:1. Positive FOBT-and anemia: The patient denies overt GIB, dark tarry stools, nausea, abdominal pain, or vomiting. He is not on anticoagulation therapy.-Continue PPI. The patient has never had EGD or colonoscopy prior to this admissions/p EGD and colonoscopy. EGD showed mild gastritis. Colonoscopy showed rectal polyp that was resected by snare. no evidence of bleeding. Pathology of polyp came back as tubular adenoma. recommend repeating colonoscopy in 5 years Anemia likely secondary to chronic kidney disease.Can consider video capsule endoscopy as outpt if evidence of dropping H/HH/H remains stable Will follow along Consultants: cardiology, endocrinology, hospitalist, infectious disease, podiatry at 1625 RPT #:[id number] OF REPORTPRProgress [id number]:24:00G.[id number] able for patient zcqdLUVBDZNHTBSHIO6050-41-96B22:26:05 [facility] 2022-09-15 11:52:00 [id number] WGbo2JSM/PO500OWDpQU7ROI+c9rY RzPYs+dRGeFaMNeC/u0lNb8tewp1450-19-79D62:52:00 [facility] ([facility])Infectious Dis. Progress NoteREPORT#:[id number] REPORT STATUS: SignedDATE:09/15/22 TIME: 1152 PATIENT: KARMA ROWLAND UNIT #: [id number]#: [id number] [place] [facility] [place]: [birth year] AGE: 56 SEX: M [facility]END[facility] AUTHOR: Linda Anderson MD * ALL edits or amendments must be made on the electronic/computer document * SubjectiveHPI:PT is a 56yr old male with history of diabetes mellitus type 2, hypertension whowas admitted with altered mental status and right-sided foot infection. According to him, he noticed a blister on his right foot around 3 days prior to presentation. His foot got progressively more swollen and erythema extended proximally to his lateral foot and ankle. CT abdomen and pelvis with contrast is concerning for possible prostate abscess. CT of lower extremity without contrast shows extensive soft tissue edema with mottled gas in the subcutaneous and intramuscular compartments of the foot, compatible with gas-forming infection. Patient's blood cultures have come back positive for MRSA in 2 out of 2 sets. PT has had persistent (+)Ve cx for MRSA 08/18- 08/22. He underwent a debridement of his foot on 08/19 and cx grew MRSA. PT was started on Vancomycin and clindamycin on 08/18. His MRI showed a prostate abscess. 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 Pt underwent a transrectal aspiration and unroofing of prostate abscess 08/26 and cx grew Citrobacter, Enterococcus, MRSA. He also hada BKA of right leg 08/28. JIMENA done 09/02. Pt was transferred to Rehab on 09/02. 09/11 doing well, no fever, no chills09/12 doing well, working with PT in hallwayPatient reports:No: cough, diarrhea, fever, headache, nausea, shortness of breath, vomiting. Portions of this section were scribed by Jill Quintero on 09/15/22 at 1152 Objective GeneralVS/I O:Vital Signs Date Temp Pulse Resp B/P B/P Mean Pulse Ox FiO2 09/14 97.5 81-82 18 139-156/73-82 95.2-106.7 94-95 Last Documented: Result Date Time Pulse Ox 94 09/14 2330 B/P 139/73 09/14 2330 B/P Mean 95.2 09/14 2330 O2 Delivery Nasal cannula 09/14 2330 Temp 97.5 09/14 2330 Pulse 81 09/14 2330 Resp 18 09/14 2330 O2 Flow Rate 2 09/08 1322 Vital Signs: Date Time Temp Pulse Resp B/P B/P Pulse O2 O2 Flow FiO2 Mean Ox Delivery Rate 09/14 2330 97.5 81 18 139/73 95.2 94 Nasal cannula 09/14 193 97.5 82 18 156/82 106.7 95 Room air 24 hour I O ending at 0700: 09/15 0700 09/14 1900 Intake Total Output Total 1000 Balance -1000 Number 0 Incontinent Voids Number Voids 0 Output, Urine 1000 PATIENT WEIGHT: Weight (lb): 165Weight (oz): 5.55Weight (kg): 75.000 Antibiotic start date:Antibiotic: vancomycinStart Date:09/03-09/12Antibiotic: daptomycin Start Date:08/28-09/03, restarted on 09/12 Antibiotic: cefepime Start Date:09/01-09/12 Antibiotic: merremStart Date:08/27-09/01, 09/12- Physical ExamGeneral appearance: alert, awake, orientedHead/Eyes: atraumatic, clear cornea, EOMI, normal conjunctiva/sclera, normal eyelids/periorb, normocephalic, PERRLENT: moist mucosal membranes, normal dentitionNeck: full range of motionCardiovascular: normal heart sounds, regular rate rhythmRespiratory: clear to auscultation, aerating wellAbdomen: non-tender, normal bowel sounds, softExtremities: moves all, right BKA Left foot wound +dressing in placeNeuro/DIRECTOR OPERATING ROOM: alert, oriented X 3 Considered stroke alert: noSkin: dry, intact ResultsFindings/Data:Laboratory Tests 09/15 09/15 09/14 09/14 0519 0515 [...] (Auto) (14.0 - 32.0 %) 11.3 L [place] % (Auto) (4.8 - 9.0 %) 3.2 L Eos % (Auto) (0.3 - 3.7 %) 0.0 L Baso % (Auto) (0.0 - 2.0 %) 0.1 Neut # (Auto) (2.0 - 7.6 x10 3/uL) 7.35 Lymph # (Auto) (1.0 - 3.8 x10 3/uL) 0.98 L [place] # (Auto) (0.1 - 0.8 x10 3/uL) 0.28 Eos # (Auto) (0.0 - 0.2 x10 3/uL) 0.00 Baso # (Auto) (0.0 - 0.2 x10 3/uL) 0.01 Abs Immat Gran (auto) (0.00 - 0.03 x10 3/uL) 0.04 H Add Manual Diff NO Immature Gran % (0.0 - 2.0 %) 0.5 Nucleated RBC % (0 - 0 %) 0.0 Nucleated RBCs # (Man) (0.0 - 0.1 x10 3/uL) 0.00 Microbiology Date/Time Procedure - Status Source Growth [...] (Auto) (14.0 - 32.0 %) 11.3 L [place] % (Auto) (4.8 - 9.0 %) 3.2 L Eos % (Auto) (0.3 - 3.7 %) 0.0 L Baso % (Auto) (0.0 - 2.0 %) 0.1 Neut # (Auto) (2.0 - 7.6 x10 3/uL) 7.35 Lymph # (Auto) (1.0 - 3.8 x10 3/uL) 0.98 L [place] # (Auto) (0.1 - 0.8 x10 3/uL) 0.28 Eos # (Auto) (0.0 - 0.2 x10 3/uL) 0.00 Baso # (Auto) (0.0 - 0.2 x10 3/uL) 0.01 Abs Immat Gran (auto) (0.00 - 0.03 x10 3/uL) 0.04 H Add Manual Diff NO Immature Gran % (0.0 - 2.0 %) 0.5 Nucleated RBC % (0 - 0 %) 0.0 Nucleated RBCs # (Man) (0.0 - 0.1 x10 3/uL) 0.00 09/14 09/14 09/14 09/14 1130 0736 0526 0525Chemistry Sodium (134 - 147 mEq/L) 132 L [...] H Calcium (8.0 - 10.5 mg/dL) 7.5 LHematology WBC (4.5 - 11.0 x10 3/uL) 9.5 [...] (Auto) (14.0 - 32.0 %) 13.9 L [place] % (Auto) (4.8 - 9.0 %) 5.1 Eos % (Auto) (0.3 - 3.7 %) 0.0 L Baso % (Auto) (0.0 - 2.0 %) 0.1 Neut # (Auto) (2.0 - 7.6 x10 3/uL) 7.58 Lymph # (Auto) (1.0 - 3.8 x10 3/uL) 1.31 [place] # (Auto) (0.1 - 0.8 x10 3/uL) 0.48 Eos # (Auto) (0.0 - 0.2 x10 3/uL) 0.00 Baso # (Auto) (0.0 - 0.2 x10 3/uL) 0.01 Abs Immat Gran (auto) (0.00 - 0.03 x10 3/uL) 0.07 H Add Manual Diff NO Immature Gran % (0.0 - 2.0 %) 0.7 Nucleated RBC % (0 - 0 %) 0.0 Nucleated RBCs # (Man) (0.0 - 0.1 x10 3/uL) 0.00 09/13 1629 Chemistry POC Glucose (70 - 110 MG/DL) 248 H 130 H Microbiology: Date/Time Procedure - Status Source Growth 09/15 0515 MRSA DNA Surveillance Screen - COMP NASAL Medication(s) Ordered:Anti-Infective Agents Sig/Jan Start time Last Medication Dose [...] Sodium 5,000 UNIT Q8HR 09/02 2200 AC 09/15 SUBQ 10/02 2159 0505 Cardiovascular Drugs Sig/Jan [...] TAB Q4H PRN PRN 09/10 0715 AC 09/15 Acetaminophen PO 10/10 1300 0910 Amitriptyline HCl 25 MG BEDTIME 09/04 2100 AC 09/14 PO 10/04 2059 2119 Acetaminophen 650 MG Q6H PRN PRN 09/01 1330 AC PO 10/01 1329 Electrolytic, Caloric, And Daniel Sig/Jan Start time Last Medication Dose Route Stop Time Status Admin Furosemide 20 MG BLOOD-DOSE BETWEEN 09/05 1245 CKD IV 10/05 1244 Sodium Chloride 10 ML ASDIR 09/05 1245 AC IV 10/05 1244 Sodium Chloride 10 ML ASDIR PRN 09/05 0630 AC 09/15 IV 10/05 0629 0912 Sterile Water [...] Sodium 40 MG Q12HR 09/05 09 AC 09/15 IV 10/05 0859 0911 Polyethylene Glycol 17 GM DAILY 09/05 899 AC 09/15 PO 10/05 0859 0912 Sennosides 8.6 MG DAILY 09/05 09 AC 09/15 PO 10/05 0859 0908 Bisacodyl [...] Methylprednisolone 125 MG ONCE ONE 09/15 0745 DC 09/15 Sodium Succinate IV 09/15 0746 1053 Insulin Glargine 14 UNIT BEDTIME 09/14 2100 AC 09/14 SUBQ 10/14 205 2118 Insulin Human Lispro 7 UNIT AC 09/14 0730 AC 09/15 SUBQ 10/14 0729 0913 Insulin Glargine 10 UNIT BEDTIME 09/13 2100 DC 09/13 SUBQ 10/13 2059 2121 Methylprednisolone 125 MG DAILY 1400 09/12 1400 DC 09/14 Sodium Succinate IV 09/14 1401 1609 Insulin Human Lispro 0 HS 09/03 1630 AC 09/15 SUBQ 10/03 1629 0912 Glucagon 1 MG ASDIR PRN 09/03 1515 AC IM 10/03 1514 Local Anesthetics (Parenteral) Sig/Jan Start time Last Medication Dose Route Stop Time Status Admin Lidocaine 1 PATCH DAILY 09/03 899 AC 09/15 TOPICAL 10/03 0859 0912 Skin And Mucous Membrane Agent Sig/Jan Start time Last Medication Dose Route Stop Time Status Admin Zinc Oxide 1 APPLIC DAILY 09/04 899 AC 09/15 TOPICAL 10/04 0859 0911 Vitamins Sig/Jan Start time Last Medication Dose Route Stop Time Status Admin Folic Acid 2 MG DAILY 09/09 899 AC 09/15 PO 10/09 0859 0909 Multivitamins 1 TAB DAILY 09/09 0900 AC 09/15 PO 10/09 0859 0911 Dose Instructions:(1)Sterile Water: DRESSING CHANGE Microbiology:09/15 0515 NASAL: MRSA DNA Surveillance Screen - COMP09/13 0455 NASAL: MRSA DNA Surveillance Screen - COMP Recent Impressions:RADIOLOGY - XR CHEST 1 V 09/12 1418 Report Impression - Status: SIGNED Entered: 09/12/20222028 IMPRESSION: Worsening opacities in the right mid and lower lung reyes. Mildly improved left retrocardiac opacities. Impression By: [email or web address] - Abel Browne M.D. Portions of this section were scribed by Jill Quintero on 09/15/22 at 1152 Treatment Prophylaxis Treatment ProphylaxisLines: PICC Portions of this section were scribed by Jill Quintero on 09/15/22 at 1152 Diagnosis, Assessment PlanFree Text A P:*MRSA bacteremia-Initial blood cultures from 08/18/2022 positive for MRSA in 2 out of 2 sets.-Repeat blood cultures 08/21/2022 are already positive for MRSA in 2 out of 2 sets, suggesting persistent high-grade bacteremia.-TTE 08/18/2022 negative for any obvious vegetations.-08/28 neg-JIMENA 09/02 neg*Prostatic abscess-s/p transrectal aspiration and unroofing on 08/26-cx MRSA, citrobacter (r-cefazolin) Enterococcus raffinosus (S-amp,pcn, vancomycin), bacteriodes*ERIKA-nephrology following; worsening*Hyponatremia*Diabetic neuropathy*Diabetes mellitus type 2*Hypertension*anemia 09/08-cont on Cefepime and vancomycin til 5/3 for treatment of Prostate abscess-follow esr and crp-EGD today 09/09-on cefepime and vancomycin til 5/3 for treatment of prostate abscess 09/10on cefepime and vancomycin til 5/3 for treatment of prostate abscesscheck esr and crp in am 09/11on cefepime and vancomycin til 5/3 for treatment of prostate abscess; if pt is discharge before 09/24 can change to oral abx 09/12on cefepime and vancomycin til 5/3 for treatment of prostate abscess; will change to Merrem 500mg Iv Q12hrs and Daptomycin as creat is worsening 09/15on Merrem and Daptomycin til 3creat still elevated: nephrology following Consultants: cardiology, endocrinology, hospitalist, infectious disease, podiatry Portions of this section were scribed by Jill Quintero on 09/15/22 at 1152 at 2335 RPT #:[id number] OF REPORTPRProgress ylvd2926-05-56O92:52:00G.[id number] able for patient dkpuTVYBUZBBQLNUMJ5460-82-98U11:35:52 [facility] 2022-09-15 11:03:00 [id number] 9wesRli8V6psBa8NmtZaojb1UhCAq /rxPo/xQZXswY6aGCDzR80irVtE1773-78-79I97:03:00 [facility] HospitalHospital[facility] Progress NoteREPORT#:[id number] REPORT STATUS: SignedDATE:09/15/22 TIME: 1103 PATIENT: KARMA ROWLAND UNIT #: [id number]#: [id number] [address] [birth year] AGE: 56 SEX: M ATTEND: Mj Vences [facility] AUTHOR: Meera Chavira DO * ALL edits or amendments must be made on the electronic/computer document * SubjectiveChief complaint:No acute complaints Review of SystemsAll systems rev neg: except as noted Objective GeneralVS/I O:Vital Signs: Date Time Temp Pulse Resp B/P [...] Output, Urine 1000 PATIENT WEIGHT: Weight (lb): 165Weight (oz): 5.55Weight (kg): 75.000 Medications:Active Meds + DC'd Last 24 HrsMethylprednisolone Sodium Succinate (Solu-Medrol 125 MG Vial) 125 [...] IV Sodium Chloride (SODIUM CHLORIDE 0.9%) 50 MLMeropenem (MEROPENEM) 500 MG Q12H IV Sterile Water (WATER FOR INJECTION) 10 MLGabapentin (NEURONTIN) 100 MG Q8HR PO Oxycodone/Acetaminophen (PERCOCET 5/325MG TAB) 2 TAB Q4H PRN PRN PO Ferric Sodium Gluconate Complex (FERRLECIT) 125 MG DAILY IV Sodium Chloride (SODIUM CHLORIDE 0.9%) 100 MLFolic Acid (FOLIC ACID) 2 MG DAILY PO Multivitamins (TAB-A-MOHAN) 1 TAB DAILY PO Furosemide (LASIX 20MG INJ) 20 MG BLOOD-DOSE BETWEEN IV (CKD) Sodium Chloride (SODIUM CHLORIDE) 10 ML ASDIR IV Pantoprazole Sodium (PROTONIX) 40 MG Q12HR IV Polyethylene Glycol (MIRALAX) 17 GM DAILY PO Sennosides (Senna Lax 8.6 MG TABLET) 8.6 MG DAILY PO Sodium Chloride (SODIUM CHLORIDE) 10 ML ASDIR PRN IV Amitriptyline HCl (ELAVIL) 25 MG BEDTIME PO Zinc Oxide (ZINC OXIDE 30 GM OINTMENT) 1 APPLIC DAILY TOPICAL Sterile Water (WATER FOR IRRIGATION) DRESSING CHANGE ASDIR PRN IRR Insulin Human Lispro (HUMALOG) 0 AC HS SUBQ Dextrose/Water (DEXTROSE 10% IN WATER) 125 ML ASDIR PRN IV (CKD) Dextrose/Water (DEXTROSE 10% IN WATER) 250 ML ASDIR PRN IV (CKD) Glucagon (GLUCAGON) 1 MG ASDIR PRN IM Lidocaine (LIDODERM) 1 PATCH DAILY TOPICAL Heparin Sodium (HEPARIN 5000 UNITS/ML) 5,000 UNIT Q8HR SUBQ Acetaminophen (TYLENOL) 650 MG Q6H PRN PRN PO Bisacodyl (DULCOLAX) 10 MG DAILY PRN PRN RECTAL Docusate Sodium (COLACE) 100 MG Q12H PRN PRN PO Hydralazine HCl (APRESOLINE) 10 MG Q6H PRN PRN IV Ondansetron HCl (ZOFRAN) 4 MG Q6H PRN PRN IV Physical ExamGeneral appearance: alert, awake, oriented, no acute distress, pleasant, mental status normal, no respiratory distressHead/Eyes: atraumatic, normocephalicENT: moist mucosal membranesNeck: no JVDCardiovascular: normal heart sounds, regular rate rhythmRespiratory: aerating well, clear to auscultationAbdomen: non-tender, normal bowel soundsGenitourinary: no bladder distentionExtremities: moves all, normal capillary refillMusculoskeletal: normal inspectionNeuro/DIRECTOR OPERATING ROOM: alert, oriented X 3, 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 Considered stroke alert: noSkin: dry, intactPsychiatry: normal affect, normal judgment/insight ResultsFindings/Data:Laboratory Tests 09/15 09/15 09/14 09/14 09/14 0519 [...] (Auto) (14.0 - 32.0 %) 11.3 L [place] % (Auto) (4.8 - 9.0 %) 3.2 L Eos % (Auto) (0.3 - 3.7 %) 0.0 L Baso % (Auto) (0.0 - 2.0 %) 0.1 Neut # (Auto) (2.0 - 7.6 x10 3/uL) 7.35 Lymph # (Auto) (1.0 - 3.8 x10 3/uL) 0.98 L [place] # (Auto) (0.1 - 0.8 x10 3/uL) 0.28 Eos # (Auto) (0.0 - 0.2 x10 3/uL) 0.00 Baso # (Auto) (0.0 - 0.2 x10 3/uL) 0.01 Abs Immat Gran (auto) (0.00 - 0.03 x10 3/uL) 0.04 H Add Manual Diff NO Immature Gran % (0.0 - 2.0 %) 0.5 Nucleated RBC % (0 - 0 %) 0.0 Nucleated RBCs # (Man) (0.0 - 0.1 x10 3/uL) 0.00 Microbiology Date/Time Procedure - Status Source Growth 09/15 514 MRSA DNA Surveillance Screen - COMP NASAL Diagnosis, Assessment PlanConsultants: cardiology, endocrinology, hospitalist, infectious disease, podiatry Free Text DxA P NotesFree text DxA P notes:Gangrene of right foot s/p Below- knee amputation Prostate abscessMRSA bacteremiaHx of Diabetes, Diabetic neuropathyHTNAKI PLANS: Continue with PT/OT per primary Wound care as directedHepain PPXIV ironBP improving now with increased dose: Metoprolol to 25 mg BIDBS better with insulin adjustment. Likely due to steroids started by Nephrologyfor AINtrend renal function closelyCr trending to 2.9, appreciate Nephrology inputpain control at 1105 RPT #:[id number] OF REPORTPRProgress [id number]:03:00G.[id number] able for patient sjbdZSOUQWJQIZVGJJ3942-08-18W83:06:48 [facility] 2022-09-15 09:43:00 [id number]+ftr5wB/qWk1Ddj1 hCwCAWkvTwe6VzLT1/ZJ3HRq9x25917-19-12X99:43:00 [facility])Rehab Progress NoteREPORT#:[id number] REPORT STATUS: SignedDATE:09/15/22 TIME: 0943 PATIENT: KARMA ROWLAND UNIT #: [id number]#: [id number] [address] [birth year] AGE: 56 SEX: M ATTEND: Mj Vences AUTHOR: Mj Vences MD * ALL edits or amendments must be made on the electronic/computer document * SubjectiveChief complaint:Rehab follow-upDoing well, up in wheelchair working with therapyReports thigh and pelvic area edemaEating 75-100% at bedside+ BMDenies DICKENS/N/V/D/CP14 systems reviewed and neg. except that above.History of present illness:56 yo HAM with long h/o DM, and HTN who was admitted for fever, flulike symptomsand altered mental status on 08/18. He was doing well until about 3 days prior toadmission when he noted blister to have formed on the dorsum of his foot. His foot started progressively getting more swollen and the blisters started enlarging and extending to his lateral foot and ankle. He started feeling weak and nauseated. He was noted to have altered mentation and was brought to our ER.He was noted to be in DKA with Blood sugars greater than 600. He was seen by podiatry and surgery for BLE wounds and infection. He was treated in ICU for sepsis and DKA. He underwent incisional and excisional debridement of right footand right ankle by podiatry. Patient also found to have prostate abscess underwent transrectal ultrasound aspiration of abscess and transurethral resection of prostate and unroofing of abscess by urology Dr. Du. Endocrinology treated the DKA and blood sugars much improved. Patient's right foot was not salvageable and patient underwent right BKA by Dr. LEROY on 08/28. Patient blood cultures showed MRSA. Patient continued on antibiotics as per ID. MRI of the pelvis and foot completed. Patient required multiple PRBCs for anemia. Patient was found to have a possible small hematoma of the left calf onultrasound. He complains of pain and swelling of the left ankle. Patient hemodynamically stable and plans are to be transferred to stepdown unit. He is on heparin subcu for VTE. After surgery he is now being mobilized by PT and OT.He is wearing a maxine-tech orthotic for right knee/BKA protection. Prior to admission the patient was independent living in a single-story house with his spouse with a few steps up to front and back door. 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 is at bedside. Patient denies nausea, vomiting, fever, chills, chest pain, shortness of breath with dizziness. He is requiring IV Dilaudid for pain control. Mental status back to baseline. Pt is progressing slowly with therapy d/t weakness and pain, self care deficit, decreased endurance and balance, and decreased functional mobility. Pt requiring acute inpt rehab for multidisciplinary team of nursing, therapy, and physicians. Pt iswilling and able to partici- kathleen in 3 hr/day inpt rehab to d/c home safely. Pt's prior level of function was independent. Objective GeneralVS:Vital Signs: Date Time Temp Pulse Resp B/P B/P Pulse O2 O2 Flow FiO2 Mean Ox Delivery Rate 09/14 2331 97.5 81 18 139/73 95.2 94 Nasal cannula 09/14 1932 97.5 82 18 156/82 106.7 95 Room air PATIENT WEIGHT: Weight (lb): 165Weight (oz): 5.55Weight (kg): 75.000 Medications:Active Meds + DC'd Last 24 HrsMethylprednisolone Sodium Succinate (Solu-Medrol 125 MG Vial) 125 [...] IV Sodium Chloride (SODIUM CHLORIDE 0.9%) 50 MLMeropenem (MEROPENEM) 500 MG Q12H IV Sterile Water (WATER FOR INJECTION) 10 MLGabapentin (NEURONTIN) 100 MG Q8HR PO Oxycodone/Acetaminophen (PERCOCET 5/325MG TAB) 2 TAB Q4H PRN PRN PO Ferric Sodium Gluconate Complex (FERRLECIT) 125 MG DAILY IV Sodium Chloride (SODIUM CHLORIDE 0.9%) 100 MLFolic Acid (FOLIC ACID) 2 MG DAILY PO Multivitamins (TAB-A-MOHAN) 1 TAB DAILY PO Furosemide (LASIX 20MG INJ) 20 MG BLOOD-DOSE BETWEEN IV (CKD) Sodium Chloride (SODIUM CHLORIDE) 10 ML ASDIR IV Pantoprazole Sodium (PROTONIX) 40 MG Q12HR IV Polyethylene Glycol (MIRALAX) 17 GM DAILY PO Sennosides (Senna Lax 8.6 MG TABLET) 8.6 MG DAILY PO Sodium Chloride (SODIUM CHLORIDE) 10 ML ASDIR PRN IV Amitriptyline HCl (ELAVIL) 25 MG BEDTIME PO Zinc Oxide (ZINC OXIDE 30 GM OINTMENT) 1 APPLIC DAILY TOPICAL Sterile Water (WATER FOR IRRIGATION) DRESSING CHANGE ASDIR PRN IRR Insulin Human Lispro (HUMALOG) 0 AC HS SUBQ Dextrose/Water (DEXTROSE 10% IN WATER) 125 ML ASDIR PRN IV (CKD) Dextrose/Water (DEXTROSE 10% IN WATER) 250 ML ASDIR PRN IV (CKD) Glucagon (GLUCAGON) 1 MG ASDIR PRN IM Lidocaine (LIDODERM) 1 PATCH DAILY TOPICAL Heparin Sodium (HEPARIN 5000 UNITS/ML) 5,000 UNIT Q8HR SUBQ Acetaminophen (TYLENOL) 650 MG Q6H PRN PRN PO Bisacodyl (DULCOLAX) 10 MG DAILY PRN PRN RECTAL Docusate Sodium (COLACE) 100 MG Q12H PRN PRN PO Hydralazine HCl (APRESOLINE) 10 MG Q6H PRN PRN IV Ondansetron HCl (ZOFRAN) 4 MG Q6H PRN PRN IV Physical ExamGeneral appearance: alert, awake, no acute distressPsych: alert, normal affect, oriented x 3HEENT: anicteric, sclera clearNeck: supple, no JVDCardiovascular: S1/S2, no murmurRespiratory: aerating well, clear bilaterallyAbdomen: bowel sounds present, non-distended, soft, non-tenderSkin: no rash, R BKA HEALING. L ankle/foot wrapped with kerlixMusculoskeletal - general: Musculoskeletal - general: swelling (LLE, calve NT, homans neg), BUE 5/5, LLE4/5, R hip 3-Neuro/DIRECTOR OPERATING ROOM: alert, oriented X 3, CNII-XII intact ResultsFindings/Data:Laboratory Tests: 09/15 09/15 09/14 09/14 09/14 0519 0515 1931 1543 1130Chemistry Sodium (134 - 147 mEq/L) 132 L [...] L Prealbumin (16.0 - 40.0 mg/dL) 8.0 LHematology WBC (4.5 - 11.0 x10 3/uL) 8.7 [...] (Auto) (14.0 - 32.0 %) 11.3 L [place] % (Auto) (4.8 - 9.0 %) 3.2 L Eos % (Auto) (0.3 - 3.7 %) 0.0 L Baso % (Auto) (0.0 - 2.0 %) 0.1 Neut # (Auto) (2.0 - 7.6 x10 3/uL) 7.35 Lymph # (Auto) (1.0 - 3.8 x10 3/uL) 0.98 L [place] # (Auto) (0.1 - 0.8 x10 3/uL) 0.28 Eos # (Auto) (0.0 - 0.2 x10 3/uL) 0.00 Baso # (Auto) (0.0 - 0.2 x10 3/uL) 0.01 Abs Immat Gran (auto) (0.00 - 0.03 0.04 Hx10 3/uL) Add Manual Diff NO Immature Gran % (0.0 - 2.0 %) 0.5 Nucleated RBC % (0 - 0 %) 0.0 Nucleated RBCs # (Man) (0.0 - 0.1 0.00x10 3/uL) Microbiology:04/24 0515 NASAL: MRSA DNA Surveillance Screen - RECD Radiology data:Recent Impressions:ULTRASOUND - US RETROPERITONEAL COM 09/10 1311 Report Impression - Status: SIGNED Entered: 09/10/2022 1503 IMPRESSION: No acute findings. Impression By: Yared Mares M.D.RADIOLOGY - XR CHEST 1 V 09/12 1418 Report Impression - Status: SIGNED Entered: 09/12/20222028 IMPRESSION: Worsening opacities in the right mid and lower lung reyes. Mildly improved left retrocardiac opacities. Impression By: [email or web address] - Abel Browne M.D. Diagnosis, Assessment PlanFree Text A P:Assessment:Severe Gas gangrene right foot and right ankle associated with osteomyelitis andnecrotizing fasciitisS/p surgical debridement and washout08/28: S/p right BKA-Dr. LeroySignificant impairment in self-care, ADLs and functional mobilityImpaired mobility and gaitAcute postoperative pain right BKADiabetic polyneuropathyDKA, DM 2, poorly controlled, A1c greater than 14PADMRSA bacteremia/sepsis-treated on acuteAKISevere hyponatremia-resolvedHTNAcute on chronic anemia requiring multiple transfusions, possible GI bleedLeft calf hematomaEdema and clinical arthritis left ankleEarly decubitus to left heel/DTI dorsal left midfootProstatic abscess 08/26: S/p transrectal ultrasound aspiration of abscess and transurethral resection of prostate and unroofing of abscess09/12: Echo: EF 55-59%, grade 1 diastolic dysfunction09/02: JIMENA negative for vegetationMRSA OF NARES09/08:s/p EGD and colonoscopy. EGD showed mild gastritis. Colonoscopy showed rectal polyp that was resected by snare (tubular adenoma)-repeat colonoscopy in 5 years Plan:-PLOF: Independent with transfers and gait-Amputee rehab program-Continue PT and OT-15/12 rehabilitation nursing care.-Case management for safe discharge planning.-Decubitus prevention-Early decubitus to left heel/DTI dorsal left midfoot-zinc oxide to the foot, foam, offloading, podiatry managing-DVT prophylaxis-subcutaneous heparin-Strict fall and safety precautions-Work on bed mobility, transfer training, ADLs, pre-gait and gait exercises-Increase endurance and strength-Monitor pain with therapies-OOB to chair-Monitor p.o. intake and nutrition, albumin 1.3, prealbumin less than 5, dietaryconsultation, protein supplements to promote jedjrtl-Syikgptm-K0a 14, tight glycemia control- endocrine on board, insulin adjustments-Endocrinology, ID, podiatry, cardiology, IM consulted-Pain management adjusting pain medications-Anemia, patient required multiple units of PRBCs on acute, FOBT positive-IV Protonix-consult GI-serial H H-no evidence of gross bleeding-discussed with Dr. TrinidadNgofzsca-Nwhpvsigkwmj-uyvzrhzrm ltwpvyek-LLG-usdyqv-CW Senokot and MiraLAX, DSP-Right XFW-fuquvvt-zjvxwagf resolved, dressings changed thwgv-eqpxefk-simqcsld GMD-MSFQ-EZGC OF NARES on Bactroban protocol-LLE edema-venous Doppler with complex heterogeneous hypoechoic fluid collectionin the left calf region measuring 8.4, 2.8, 2.5 cm suggestive of hematoma. On low-dose Lasix. Joan wrap LLE-LE edema could be related to hypoalbuminemia leading to third spacing-edema improving-Generalized edema-some shortness of breath and abdominal distention-cardiology gave a dose of IV Lasix-monitor urine output, daily weights-SOB resolved-09/05-venous Doppler of LLE-negative for DVT-Joan wrap dressing and vjgspcxnq-Bsrbgv-cfgxhsqkqb 8.3, 7.7, 8.2, transfused 2 units of PRBC on 09/05-09/08: s/p EGD and colonoscopy. EGD showed mild gastritis. Colonoscopy showed rectal polyp that was resected by snare. Anemia likely secondary to chronic kidney disease. Consult renal.-Pathology of polyp came back as tubular adenoma. recommend repeating colonoscopy in 5 years as per GI-Consider video capsule endoscopy as outpt if evidence of dropping H/H-Renal ultrasound negative-09/15/2022 we will give additional dose of Solu-Medrol 125 mg IV today, laboratory this morning showed sodium 132, potassium 4.7, CO2 17, chloride 105, BUN 38, creatinine 2.9, glucose 312, hemoglobin 8.2, platelet 341, blood count 8.7, needs better blood sugar control, if creatinine does not start improving the next couple days will plan for kidney biopsy-as per renal-on Merrem and Daptomycin til 5/3 as per ID-Lasix discontinued.-On Fney-Tgvbgb-Vngpg LLE swelling (not new) and low albumin. may benefit from albumin infusion+ Xmrbn-PVK-qjwzijsnx opacities in the right mid and lower lung field. Improved left retrocardiac opacities-BNP 297-09/12: Echo-EF 55-60%, indeterminate diastolic function parameters as per cardio-Advance therapies as tolerated-discussed treatment plan with patient and -Patient progressing well in therapy. Patient with improved transfers and endurance.-May need kidney biopsy-Discussed with patient and about renal issues-Team conference-making good functional progress Progress: ENERGY CONSERVATION, WC MOBILITY, AND BRACE POSITIONING. PATIENT MIN A FOR DONNING SHORTS AND SBA FOR SUPINE TO SIT. PATIENT SET UP FOR SLIDE BOARD TRANSFER FROM BED TO WC. PATIENT PROPELLED WC 200' X 2 WITH MOD I USING MANUEL UE TO PROPEL. PATIENT TOLERATED SEATED EXERCISE X 20 IN ALL PLANES WITH 3# ANKLE WEIGHT.PATIENT PERFROMED PUSH UP ON WC X 5 WITH VC FOR SEQUEINCING AND SBA. PATIENT MIN A FOR SIT TO STAND X 5 IN PARALLEL BARS. PM RPlease see team note.Plan and goals discussed with the patient. I agree with the teams findingELOS- [09/19]DC-Home with -Home healthDME-bedside commode, sliding board, wheelchair, Total time 33 minutes greater than 50% of the time spent examining patient, discussing with patient and about impaired renal function, may need kidney biopsy, medical issues, anemia, amputee rehab, plan of care, goals, therapies, progress, labs, medications. EMR and MAR is reviewed. All questions answeredConsultants: cardiology, endocrinology, hospitalist, infectious disease, podiatryRehab attestation:Face to face exam completed. Treatment plan discussed with patient. Meets continued stay criteria. Agree with interdisciplinary treatment plan. at 1336 RPT #:[id number] OF REPORTPRProgress [id number]:43:00G.[id number] able for patient tmhmPFDURUIWUVSRRG4823-87-26F83:36:59 [facility] 2022-09-15 09:41:00 [id number] [id number] Zz2c+L6tB+p6dEU8Imtp1WcPtyF2440-36-69V23:41:00 [facility] ([facility])Cardiology Progress NoteREPORT#:[id number] REPORT STATUS: SignedDATE:09/15/22 TIME: 940 PATIENT: KARMA ROWLAND UNIT #: [id number]#: [id number] [address] [birth year] AGE: 56 SEX: M ATTEND: Mj Vences MDADM AUTHOR: Rohit Benitez RESEARCH MANUFACTURING OPERATOR * ALL edits or amendments must be made on the electronic/computer document * Rohit Benitez 09/15/22 0941:SubjectiveChief complaint:weakness Free Text Subj NotesFree Text Subj Notes:Patient seen and evaluated. Chart reviewed. No new symptoms, feeling well. Denies chest pain, palpitations, or shortness of breath. Objective GeneralVS/I O:24 hour I O ending at 0700: 09/15 [...] 95 Room air PATIENT WEIGHT: Weight (lb): 165Weight (oz): 5.55Weight (kg): 75.000 Medications:Active Meds + DC'd Last 24 HrsMethylprednisolone Sodium Succinate (Solu-Medrol 125 MG Vial) 125 [...] IV Sodium Chloride (SODIUM CHLORIDE 0.9%) 50 MLMeropenem (MEROPENEM) 500 MG Q12H IV Sterile Water (WATER FOR INJECTION) 10 MLGabapentin (NEURONTIN) 100 MG Q8HR PO Oxycodone/Acetaminophen (PERCOCET 5/325MG TAB) 2 TAB Q4H PRN PRN PO Ferric Sodium Gluconate Complex (FERRLECIT) 125 MG DAILY IV Sodium Chloride (SODIUM CHLORIDE 0.9%) 100 MLFolic Acid (FOLIC ACID) 2 MG DAILY PO Multivitamins (TAB-A-MOHAN) 1 TAB DAILY PO Furosemide (LASIX 20MG INJ) 20 MG BLOOD-DOSE BETWEEN IV (CKD) Sodium Chloride (SODIUM CHLORIDE) 10 ML ASDIR IV Pantoprazole Sodium (PROTONIX) 40 MG Q12HR IV Polyethylene Glycol (MIRALAX) 17 GM DAILY PO Sennosides (Senna Lax 8.6 MG TABLET) 8.6 MG DAILY PO Sodium Chloride (SODIUM CHLORIDE) 10 ML ASDIR PRN IV Amitriptyline HCl (ELAVIL) 25 MG BEDTIME PO Zinc Oxide (ZINC OXIDE 30 GM OINTMENT) 1 APPLIC DAILY TOPICAL Sterile Water (WATER FOR IRRIGATION) DRESSING CHANGE ASDIR PRN IRR Insulin Human Lispro (HUMALOG) 0 AC HS SUBQ Dextrose/Water (DEXTROSE 10% IN WATER) 125 ML ASDIR PRN IV (CKD) Dextrose/Water (DEXTROSE 10% IN WATER) 250 ML ASDIR PRN IV (CKD) Glucagon (GLUCAGON) 1 MG ASDIR PRN IM Lidocaine (LIDODERM) 1 PATCH DAILY TOPICAL Heparin Sodium (HEPARIN 5000 UNITS/ML) 5,000 UNIT Q8HR SUBQ Acetaminophen (TYLENOL) 650 MG Q6H PRN PRN PO Bisacodyl (DULCOLAX) 10 MG DAILY PRN PRN RECTAL Docusate Sodium (COLACE) 100 MG Q12H PRN PRN PO Hydralazine HCl (APRESOLINE) 10 MG Q6H PRN PRN IV Ondansetron HCl (ZOFRAN) 4 MG Q6H PRN PRN IV Physical ExamGeneral appearance: alert, awake, orientedNeck: no bruit/NL carotids, no JVDCardiovascular: CV assessment: regular rate and rhythm, no ectopy, no gallopRespiratory: clear to auscultation, no distressAbdomen: soft, non-tenderLower extremity: LE assessment: edema, normal temperatureNeuro/DIRECTOR OPERATING ROOM: alert, oriented X 3 Considered stroke alert: noWound/incision: Location:right bkaPsychiatry: normal affect, normal judgment/insight, normal mood ResultsFindings/Data:Laboratory Tests 09/15 09/15 09/14 09/14 09/14 0519 [...] 40.0 mg/dL) 8.0 L Laboratory Tests 09/15 0415 Hematology WBC (4.5 - 11.0 x10 [...] (Auto) (14.0 - 32.0 %) 11.3 L [place] % (Auto) (4.8 - 9.0 %) 3.2 L Eos % (Auto) (0.3 - 3.7 %) 0.0 L Baso % (Auto) (0.0 - 2.0 %) 0.1 Neut # (Auto) (2.0 - 7.6 x10 3/uL) 7.35 Lymph # (Auto) (1.0 - 3.8 x10 3/uL) 0.98 L [place] # (Auto) (0.1 - 0.8 x10 3/uL) 0.28 Eos # (Auto) (0.0 - 0.2 x10 3/uL) 0.00 Baso # (Auto) (0.0 - 0.2 x10 3/uL) 0.01 Abs Immat Gran (auto) (0.00 - 0.03 x10 3/uL) 0.04 H Add Manual Diff NO Immature Gran % (0.0 - 2.0 %) 0.5 Nucleated RBC % (0 - 0 %) 0.0 Nucleated RBCs # (Man) (0.0 - 0.1 x10 3/uL) 0.00 Laboratory Tests 09/15 0515 Chemistry Magnesium (1.80 - 2.40 mg/dL) 1.96 Diagnosis, Assessment PlanConsultants: cardiology, endocrinology, hospitalist, infectious disease, podiatry Free Text DxA P NotesFree Text DxA P Notes:Impression: 1. Debility2. Infected right foot status post BKA3. Bacteremia4. Diabetes5. Hypertension 6. Anemia7. Acute Diastolic CHF 07/2022: Echocardiogram with normal LVEF, grade 1 diastolic dysfunction, mildly dilated LA, and no significant valvular abnormalities Recommendation: Patient initially presented with DKA and sepsis. Diagnosed with right foot infection, underwent I D, now status post BKA. Patient had persistent bacteremia with MRSA, underwent JIMENA with negative findings of endocarditis. Patient now transferred to rehab for physical therapy. Known cardiac history ofhypertension and hyperlipidemia. Vital signs stable. Echocardiogram with normal LVEF, grade 1 diastolic dysfunction, mildly dilated LA, and no significant valvular abnormalities. Continue to monitor blood pressure trend. Continue wound care and IV antibiotic therapy. Continue PT/OT. Supportive care. 09/04: Patient complaining of shortness of breath, abdominal distention and lowerextremity edema. Renal function and electrolytes stable. Will give one-time dose of IV Lasix 40 mg. Blood pressure stable. Pending abdominal x-ray. Monitor intake and output. Check BMP in the morning. Supportive care. Plan ofcare discussed with patient, RN and Dr. Parham. 09/05: Patient responded well to IV Lasix, good urine output and improvement in shortness of breath. Chest x-ray ordered. Currently on Lasix 20 mg p.o. daily. Continue monitor renal function and electrolytes. Pending lower extremity Doppler for lower extremity edema. Continue PT/OT. Supportive care. Plan of care discussed with patient, RN and Dr. aPrham. 09/08: Blood pressure has been elevated, started on Coreg 3.125 mg twice daily. Continue monitor blood pressure trend and adjust medication as needed. Still having left lower extremity edema, venous Doppler negative for DVT. continue gentle diuresis with Lasix 20 mg p.o. daily. Recommend Joan wrap. Patient remains anemic, plan for EGD/colonoscopy today. Supportive care. Plan of care discussed with patient, family, RN and Dr. Parham. 09/09: Patient doing well status post EGD/colonoscopy, negative findings for GI bleed. Blood pressure improving, increased on Coreg to 12.5 mg twice daily. Elevated creatinine noted, nephrology following. No new cardiac complaint. Continue wound care. Continue PT/OT. Supportive care. Plan of care discussed with patient, RN and Dr. Parham. 09/10: Blood pressure remained stable on current regimen of Coreg. Patient continue to have left lower extremity edema. Currently on Lasix 20 mg daily. Creatinine 1.9 today, continue to monitor. Patient's albumin level was 1.3, it is possible that patient's lower extremity edema could be related to hypoalbuminemia leading to third spacing. Continue PT/OT. Supportive care. Plan of care discussed with patient, RN and Dr. Parham. 09/11: Patient doing well from cardiac standpoint. Blood pressure well controlled. Improvement in lower extremity edema with elevating leg while in bed. Creatinine 2.0 today. Denies shortness of breath. Will hold diuretic for now and monitor renal function. Supportive care. Plan of care discussed with patient, RN and Dr. Parham. 09/12: Creatinine remains elevated at 2.4 today, antibiotic regimen also being adjusted. Patient still with lower extremity edema and rales on physical examination. Will check chest x-ray and limited echocardiogram for further evaluation. Check BNP. Continue hold diuretic for now. Supportive care. Planof care discussed with patient, RN and Dr. Parham. 09/15: Repeat echocardiogram showed LVEF of 55 to 60%, no regional wall motion abnormalities, left ventricular diastolic function parameters are indeterminate,mildly dilated LA, and no pericardial effusion. BNP elevated 297. Continue to hold diuretic due to Elevated creatinine, nephrology following and may consider renal biopsy. Continue to monitor fluid volume status. Overall improvement in lower extremity with Joan wrap. Continue physical therapy. Supportive care. Plan of care discussed with patient, RN and Dr. Parham. Napoleon Parham 09/18/22 0859:Diagnosis, Assessment PlanAdditional comments:Patient was seen and examined at bedside, agree with above assessment and plan as documented by nurse practitioner. Will follow. at 1654 at 0902 RPT #:[id number] OF REPORTPRProgress pmrk1333-15-96P39:41:00G.[id number] able for patient qsuoEZYNQFDQOKSNFC7470-49-67I12:55:00 [facility] 2022-09-15 07:33:00 [id number] 9cXiSWyeAhUoc9R0aYFi+Pk18x5Jy 8onfD9QQ7tKJKK9RCmNOhUry9Sq3513-07-93I82:33:00 [facility] ([facility] Progress NoteREPORT#:[id number] REPORT STATUS: SignedDATE:09/15/22 TIME: 732 PATIENT: KARMA ROWLAND UNIT #: [id number]#: [id number] [address] [birth year] AGE: 56 SEX: M ATTEND: Mj Vences [facility] AUTHOR: Barrera Ramírez MD * ALL edits or amendments must be made on the electronic/computer document * SubjectiveChief complaint:Infected footHPI:Patient seen and evaluated on 09/09/2022, note started, records reviewed and orders placed on 09/08/2022, 56-year-old male with history of diabetes mellitus type 2, hypertension and peripheral vascular disease who was initially admitted to acute care with altered mental status and right foot infection/gangrene, 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 Patient had persistent anemia requiring blood transfusion. His fecal occult blood was positive and his creatinine was 1.2 and increased to 1.4 today, laboratories today showed hemoglobin 8.5, platelet 231, blood count 9.1, sodium 135, potassium 4.6, CO2 22, BUN 22, creatinine 1.4. Renal consult was requested for evaluation management of elevated BUN and creatinine and if his decreased GFR iscontributing to his anemia. Patient reports:Yes: complaints. Comments:Patient seen and evaluated, HPI no change from initial, feels okay. Review of SystemsConstitutional:Reports: fatigue. Denies: chills, fever. Skin:Denies: abrasion, bruising. Allergy/Immun:Denies: hives, itching. Eyes:Denies: redness, discharge. ENT:Denies: ear drainage, ear ringing. Respiratory:Denies: hemoptysis, SOB. Cardiovascular:Denies: chest pain. Objective GeneralVS/I O:Vital Signs: Date Time Temp Pulse Resp B/P [...] Output, Urine 1000 PATIENT WEIGHT: Weight (lb): 165Weight (oz): 5.55Weight (kg): 75.000 MedicationsActive Meds + DC'd Last 24 HrsInsulin Glargine (Semglee) 14 UNIT BEDTIME SUBQ Insulin Human Lispro (HUMALOG) 7 UNIT AC SUBQ Insulin Glargine (Semglee) 10 UNIT BEDTIME SUBQ (DC) Carvedilol (COREG) 25 MG C BK DIN PO Methylprednisolone Sodium Succinate (Solu-Medrol 125 MG Vial) 125 MG DAILY 1400 IV (DC) Daptomycin (CUBICIN 500MG) 500 MG Q24H IV Sodium Chloride (SODIUM CHLORIDE 0.9%) 50 MLMeropenem (MEROPENEM) 500 MG Q12H IV Sterile Water (WATER FOR INJECTION) 10 MLGabapentin (NEURONTIN) 100 MG Q8HR PO Oxycodone/Acetaminophen (PERCOCET 5/325MG TAB) 2 TAB Q4H PRN PRN PO Ferric Sodium Gluconate Complex (FERRLECIT) 125 MG DAILY IV Sodium Chloride (SODIUM CHLORIDE 0.9%) 100 MLFolic Acid (FOLIC ACID) 2 MG DAILY PO Multivitamins (TAB-A-MOHAN) 1 TAB DAILY PO Furosemide (LASIX 20MG INJ) 20 MG BLOOD-DOSE BETWEEN IV (CKD) Sodium Chloride (SODIUM CHLORIDE) 10 ML ASDIR IV Pantoprazole Sodium (PROTONIX) 40 MG Q12HR IV Polyethylene Glycol (MIRALAX) 17 GM DAILY PO Sennosides (Senna Lax 8.6 MG TABLET) 8.6 MG DAILY PO Sodium Chloride (SODIUM CHLORIDE) 10 ML ASDIR PRN IV Amitriptyline HCl (ELAVIL) 25 MG BEDTIME PO Zinc Oxide (ZINC OXIDE 30 GM OINTMENT) 1 APPLIC DAILY TOPICAL Sterile Water (WATER FOR IRRIGATION) DRESSING CHANGE ASDIR PRN IRR Insulin Human Lispro (HUMALOG) 0 AC HS SUBQ Dextrose/Water (DEXTROSE 10% IN WATER) 125 ML ASDIR PRN IV (CKD) Dextrose/Water (DEXTROSE 10% IN WATER) 250 ML ASDIR PRN IV (CKD) Glucagon (GLUCAGON) 1 MG ASDIR PRN IM Lidocaine (LIDODERM) 1 PATCH DAILY TOPICAL Heparin Sodium (HEPARIN 5000 UNITS/ML) 5,000 UNIT Q8HR SUBQ Acetaminophen (TYLENOL) 650 MG Q6H PRN PRN PO Bisacodyl (DULCOLAX) 10 MG DAILY PRN PRN RECTAL Docusate Sodium (COLACE) 100 MG Q12H PRN PRN PO Hydralazine HCl (APRESOLINE) 10 MG Q6H PRN PRN IV Ondansetron HCl (ZOFRAN) 4 MG Q6H PRN PRN IV Physical ExamGeneral appearance: alert, no acute distressHead/eyes: atraumatic, normocephalicENT: normal noseNeck: non-tender, supple/no meningismusCardiovascular: normal heart sounds, no rubRespiratory: aerating well, symmetric expansionAbdomen: non-tender, softGenitourinary: no flank painExtremities: non-tender, no edemaMusculoskeletal: no CVA tenderness, no tendernessNeuro/DIRECTOR OPERATING ROOM: alert, 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 Considered stroke alert: noSkin: dry, intact ResultsFindings/Data:Laboratory Tests 09/15 09/14 09/14 09/14 09/14 0519 193 1543 1130 0736 Chemistry POC Glucose (70 - 110 MG/DL) 309 H 193 H 60 L 137 H 290 H 09/14 09/14 09/13 09/13 [...] - 32.0 %) 13.9 L 10.4 L Lenoir % (Auto) (4.8 - 9.0 %) 5.1 3.5 L Eos % (Auto) (0.3 - 3.7 %) 0.0 L 0.0 L Baso % (Auto) (0.0 - 2.0 %) 0.1 0.1 Neut # (Auto) (2.0 - 7.6 x10 3/uL) 7.58 8.34 H Lymph # (Auto) (1.0 - 3.8 x10 3/uL) 1.31 1.02 Lenoir # (Auto) (0.1 - 0.8 x10 3/uL) 0.48 0.34 Eos # (Auto) (0.0 - 0.2 x10 3/uL) 0.00 0.00 Baso # (Auto) (0.0 - 0.2 x10 3/uL) 0.01 0.01 Abs Immat Gran (auto) (0.00 - 0.03 x10 3/uL) 0.07 H 0.07 H Add Manual Diff NO NO Immature Gran % (0.0 - 2.0 %) 0.7 0.7 Nucleated RBC % (0 - 0 %) 0.0 0.0 Nucleated RBCs # (Man) (0.0 - 0.1 x10 3/uL) 0.00 0.00 Eos Smear Total Cells NONE SEEN Microbiology Date/Time Procedure - Status Source Growth 09/13 454 MRSA DNA Surveillance Screen - COMP NASAL Laboratory Tests 09/15 09/14 09/14 09/14 09/14 0519 1931 1543 1130 0736 Chemistry POC Glucose (70 - 110 MG/DL) 309 H 193 H 60 L 137 H 290 H Diagnosis, Assessment PlanFree Text A P:Patient seen and evaluated, discussed with care team, images and laboratories reviewed.Diabetes mellitus: Insulin: Monitor blood sugar closely and adjust medications as needed, followed by endocrinology.Hypertension: Blood pressure is not well controlled, increase Coreg to 12.5 mg p.o. twice daily: Monitor blood pressure closely and adjust medications as neededRight foot gangrene/infection status post right BKAAnemia: Status post EGD and colonoscopy which were negative for active GI bleeding, patient had work-up in July 2022 which showed very high B12, normal folate, very low iron saturation but very high ferritin which was likely relatedto his infection, likely patient is very iron deficient, will repeat lab and give IV iron if needed. We will check serum immunofixation.Acute kidney injury: We will check renal bladder ultrasound, check postvoid residual, check urine protein creatinine ratioHypomagnesemia: We will supplement09/10/2022 laboratory this morning showed sodium 135, potassium 4.2, CO2 21, BUN 25, creatinine 1.9 continues to worsen, etiology unclear, however his development some eosinophilia not sure if he is developing AIN, suggest changingcefepime to a different class of antibiotic if possible, will check renal bladder ultrasound09/11/2022 laboratory this morning showed sodium 134, potassium 4.3, CO2 22, BUN 26, creatinine 2 up from 1.9, hopefully creatinine is plateauing, renal ultrasound negative.09/12/2022 laboratory this morning showed sodium 134, potassium 4.2, CO2 20, BUN 31, creatinine 2.4 continues to worsen, discussed with ID, AIN is probably the etiology of the unexplained deterioration of his renal function, antibiotics to be adjusted by infectious disease, will give Solu-Medrol 125 mg IV daily for 3 days. Significant lower extremity edema, will start Lasix 20 mg p.o. twice daily.09.13.22: pt was seen and examined. Very thirsty. serum creatinine is worsening today. Vancomycin was stopped yesterday and Solu medrol was started. Mild hypovolemic hyponatremia. Will DC lasix and monitor his renal functions. BP is well controlled. 09.14.22: pt was seen and examined. Feels better but still thirsty. I stopped hislasix. will start NS at 75 cc for one Leter only. serum creatinine is improving.Received three doses of Solu Medrol a well. BP is on the higher side, likely secondary to steroids. will monitor for now. mild hypovelmic hyponatremia. also could be secondary to hyperglycemia. 09/15/2022 we will give additional dose of Solu-Medrol 125 mg IV today, laboratory this morning showed sodium 132, potassium 4.7, CO2 17, chloride 105, BUN 38, creatinine 2.9, glucose 312, hemoglobin 8.2, platelet 341, blood count 8.7, needs better blood sugar control, if creatinine does not start improving the next couple days will plan for kidney biopsyConsultants: cardiology, endocrinology, hospitalist, infectious disease, podiatry at [address] [facility] #:[id number] OF REPORTPRProgress [id number]:33:00G.[id number] able for patient [id number]:22:12 [facility] 2022-09-15 06:25:00 [id number] AbLwxDNl5tBpVFXNTHB0q1jmVo1gt 5sth2wCvuIvZZmc2c9WghZKc69g7268-03-44R73:25:00 [facility] ([facility])Pain Management Progress NoteREPORT#:[id number] REPORT STATUS: SignedDATE:09/15/22 TIME: 624 PATIENT: KARMA ROWLAND UNIT #: [id number]#: [id number] [address] [birth year] AGE: 56 SEX: M ATTEND: Mj Vences [facility] AUTHOR: Charlie Quiroga RESEARCH MANUFACTURING OPERATOR * ALL edits or amendments must be made on the electronic/computer document * Charlie Quiroga 09/15/2225:SubjectiveChief complaint:Patient seen and examined. Chart/MAR reviewed. Patient is currently with good pain control. Medication alleviates pain when taken. No side effects noted with the pain medication at this time. Patient being seen for Acute postoperative pain, right foot and anklegangrene, requiring BKA, Constipation Patient is still requiring medications to help with managing currentproblems. Patient is requiring IV narcotics to help manage breakthrough pain No fever/chills, chest pain, orthopnea, nausea/vomiting, pruritus, orhallucinations.14 point ROS undertaken unremarkable except as noted Objective GeneralVS/I O:Vital Signs Date Temp Pulse Resp B/P B/P Mean Pulse Ox FiO2 09/14 97.5-97.9 81-82 16-18 139-156/73-82 95.2-106.7 94-95 Last Documented: Result Date Time Pulse Ox 94 09/14 2330 B/P 139/73 09/14 2330 B/P Mean 95.2 09/14 2330 O2 Delivery Nasal cannula 09/14 2330 Temp 97.5 09/14 2330 Pulse 81 09/14 2330 Resp 18 09/14 2330 O2 Flow Rate 2 09/08 1322 24 hour I O ending at 0700: 09/15 0700 09/14 1900 Intake Total Output Total 1000 Balance -1000 Number 0 Incontinent Voids Number Voids 0 Output, Urine 1000 PATIENT WEIGHT: Weight (lb): 165Weight (oz): 5.55Weight (kg): 75.000 Medications:Active Meds + DC'd Last 24 HrsInsulin Glargine (Semglee) 14 UNIT BEDTIME SUBQ Insulin Human Lispro (HUMALOG) 7 UNIT AC SUBQ Insulin Glargine (Semglee) 10 UNIT BEDTIME SUBQ (DC) Carvedilol (COREG) 25 MG C BK DIN PO Methylprednisolone Sodium Succinate (Solu-Medrol 125 MG Vial) 125 MG DAILY 1400 IV (DC) Daptomycin (CUBICIN 500MG) 500 MG Q24H IV Sodium Chloride (SODIUM CHLORIDE 0.9%) 50 MLMeropenem (MEROPENEM) 500 MG Q12H IV Sterile Water (WATER FOR INJECTION) 10 MLGabapentin (NEURONTIN) 100 MG Q8HR PO Oxycodone/Acetaminophen (PERCOCET 5/325MG TAB) 2 TAB Q4H PRN PRN PO Ferric Sodium Gluconate Complex (FERRLECIT) 125 MG DAILY IV Sodium Chloride (SODIUM CHLORIDE 0.9%) 100 MLFolic Acid (FOLIC ACID) 2 MG DAILY PO Multivitamins (TAB-A-MOHAN) 1 TAB DAILY PO Furosemide (LASIX 20MG INJ) 20 MG BLOOD-DOSE BETWEEN IV (CKD) Sodium Chloride (SODIUM CHLORIDE) 10 ML ASDIR IV Pantoprazole Sodium (PROTONIX) 40 MG Q12HR IV Polyethylene Glycol (MIRALAX) 17 GM DAILY PO Sennosides (Senna Lax 8.6 MG TABLET) 8.6 MG DAILY PO Sodium Chloride (SODIUM CHLORIDE) 10 ML ASDIR PRN IV Amitriptyline HCl (ELAVIL) 25 MG BEDTIME PO Zinc Oxide (ZINC OXIDE 30 GM OINTMENT) 1 APPLIC DAILY TOPICAL Sterile Water (WATER FOR IRRIGATION) DRESSING CHANGE ASDIR PRN IRR Insulin Human Lispro (HUMALOG) 0 AC HS SUBQ Dextrose/Water (DEXTROSE 10% IN WATER) 125 ML ASDIR PRN IV (CKD) Dextrose/Water (DEXTROSE 10% IN WATER) 250 ML ASDIR PRN IV (CKD) Glucagon (GLUCAGON) 1 MG ASDIR PRN IM Lidocaine (LIDODERM) 1 PATCH DAILY TOPICAL Heparin Sodium (HEPARIN 5000 UNITS/ML) 5,000 UNIT Q8HR SUBQ Acetaminophen (TYLENOL) 650 MG Q6H PRN PRN PO Bisacodyl (DULCOLAX) 10 MG DAILY PRN PRN RECTAL Docusate Sodium (COLACE) 100 MG Q12H PRN PRN PO Hydralazine HCl (APRESOLINE) 10 MG Q6H PRN PRN IV Ondansetron HCl (ZOFRAN) 4 MG Q6H PRN PRN IV Physical ExamGeneral appearance: alert, awake, oriented, no respiratory distressHead/eyes: atraumatic, EOMI, normocephalic, normal conjunctiva/sclera, PERRLAENT: normal ear left, normal ear right, normal nose, normal pharynx, moist mucosal membranesNeck: full range of motion, no lymphadenopathy, supple/no meningismusCardiovascular: regular rate rhythmRespiratory: clear to auscultation, no distress, aerating wellAbdomen: soft, non-tender, no distention, active bowel sounds in all quarants. Abdomen quadrantsLLQ normal bowel sounds, LUQ normal bowel sounds, RLQ normal bowel sounds, RUQ normal bowel soundsExtremities: moves all, no edema, pedal pulsesNeuro/DIRECTOR OPERATING ROOM: 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, no sensory deficits, CNII-XII grossly intact Considered stroke alert: noSkin: dry, normal turgor, no rashPsychiatry: normal affect ResultsFindings/data:Laboratory Tests: 09/15 09/14 09/14 09/14 09/14 0519 1931 1543 1130 0736 Chemistry POC Glucose (70 - 110 MG/DL) 309 H 193 H 60 L 137 H 290 H Microbiology: Date/Time Procedure - Status Source Growth 09/15 0500 MRSA DNA Surveillance Screen - COLB NASAL Diagnosis, Assessment PlanFree text A P:A/P:Patient is a 56 year old male who presents with: Recent prostate abscess-Status post TURP with unroofing of abscess-IV antibiotics with vancomycin until 09-24-2022 Acute postoperative pain, right foot and ankle gangrene, requiring BKA-Patient is at risk for further amputations or loss of limb due to comorbid conditions-Status post right BKA 08/28/2022-DC Sheldon 10/325 1 tablet p.o. every 4 hours as needed pain scale 4 10-DC Dilaudid 0.5 mg IV daily as needed pain scale 7 10, second line therapy (09/13)-Tylenol 650 mg p.o. every 6 hours as needed pain scale 1 3-Percocet 10/325mg every 4 hours as needed, pain scale 4-10 (09/10)-Lidoderm patch to left ankle daily-IV antibiotics with vancomycin until 1-6-9501-Local wound care-manageable Diabetic peripheral neuropathy-amitriptyline 25mg PO QHS-Gabapentin 100mg every 8 hours (09/10)-manageable Hypertension-We will monitor hypertension and tachycardia due to pain, and hypotension as well as bradycardia secondary over sedation with narcotics-Hydralazine as needed Elevated LFTs-08/20/22-AST 51, ALT 22-09/03/2022-AST 15, ALT 7-Patient will require close monitoring since he is using narcotics with Tylenol Impaired functional mobility, balance, gait, and endurance-PT/OT Antalgic/Impaired gait-PT/OT-Improve strength, endurance, self-care, gait, balance, ADLs-Fall precautions per unit protocol-Pain medications as outlined above Constipation-We will monitor while utilizing opioid narcotic medications.-Adequate fluid intake also discussed.-Colace 100 mg p.o. twice daily as needed-Dulcolax 10 mg rectally daily as needed-Senna lax 8.6mg daily-Miralax 17gm daily-manageable Disposition: Past Medical History: Prostate abscess, right foot foot and ankle gangrene, diabetes, hypertension, hyperlipidemiaPast Surgical History: TURP, right BKAFamily History: NoncontributorySocial History: Denies tobacco, alcohol, or drug useAllergies: NKDA Patient has failed conservative medical therapy.Patient will require monitoring while utilize narcotic medications for any adverse effects, and will adjust as neededPlan of care discussed with patient and nurseAll diagnostics of last 24 hours been reviewed. Risks versus benefits of opioid medications were reviewed to include, but not limited to respiratory depression, accidental overdose, altered mental status, sudden , constipation which could result in bowel obstruction, seizures, withdrawal, dependency addiction, risk for falls. Case discussed with Dr Ng whom agrees. Thank you for the consultation. [place] DISABILITY HEARING OFFICER:-database searched, no information found Kingsley Ng 10/04/22 1356:Attestations Physician AttestationAgree w/findings plan:The patient was seen and examined by Charlie Quiroga. I personally developed thecare plan, which was continued by the mid-level provider. I was immediately available. at 0708 at 1400 [facility] #:[id number] OF REPORTPRProgress [id number]:25:00G.[id number] able for patient uygcTRVDHFTLSMGUNG8571-59-75E75:08:30 [facility] 2022-09-14 17:43:00 [id number]/ LM9OSCNy3gKKGw7HEPluJLQD6MU6524-43-60K09:43:00 [facility] Progress NoteREPORT#:[id number] REPORT STATUS: SignedDATE:09/14/22 TIME: 1742 PATIENT: KARMA ROWLAND UNIT #: [id number]#: [id number] [address] [birth year] AGE: 57 SEX: M ATTEND: Mj Vences [facility] AUTHOR: Tiara Tillman RESEARCH MANUFACTURING OPERATOR * ALL edits or amendments must be made on the electronic/computer document * Tiara Tillman 09/14/22 1743:SubjectiveHPI:Patient is a 56-year-old male with history of diabetes mellitus type 2 and hypertension who was initially admitted for altered mental status and right-sided foot infection. 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 The patient is anemic with current Hgb 7.1. He has received a total of 3 units pRBCs during this hospitalization. KUB on 09/04 was negative for acute GI process. The patient denies overt GIB, dark tarry stools, nausea, abdominal pain, or vomiting. He has never had EGD orcolonoscopy. 09/06: No complaints today. Hemoglobin stable. No overt GI bleed. Plan for colonoscopy and endoscopy on Thursday 09/07: No complaints today. No overt GI bleed. Planning for colonoscopy and endoscopy tomorrow 09/08: EGD mild gastritis. colonoscopy rectal polyp s/p snare. No other abnormalities 09/09: doing well. Seen at the gym. No bleeding. 09/10: Doing well. No bleeding. tolerating diet. Movig bowels 09/11: doing well. States his leg swelling is better. Tolerating diet. having normal BM 09/12: dooing well. doing work-out at the gym. Tolerating diet. Normal BMs. Stable H/-Sitting up in wheelchair, family at bedside. Denies n/v/abd pain/GIB Objective Physical ExamHEENT: atraumatic, normocephalicNeck: full range of motion, non-tenderRespiratory: symmetric expansion, no distressAbdomen: non-tender, normal bowel sounds, soft, no distention, no guardingExtremities: right BKA Considered stroke alert: noSkin: dry Diagnosis, Assessment PlanFree Text A P:1. Positive FOBT-and anemia: The patient denies overt GIB, dark tarry stools, nausea, abdominal pain, or vomiting. He is not on anticoagulation therapy.-Continue PPI. The patient has never had EGD or colonoscopy prior to this admissions/p EGD and colonoscopy. EGD showed mild gastritis. Colonoscopy showed rectal polyp that was resected by snare. no evidence of bleeding. Pathology of polyp came back as tubular adenoma. recommend repeating colonoscopy in 5 years Anemia likely secondary to chronic kidney disease.Can consider video capsule endoscopy as outpt if evidence of dropping H/HWill follow along Consultants: cardiology, endocrinology, hospitalist, infectious disease, podiatry Aleah Trinidad 10/31/22 1409:Diagnosis, Assessment PlanFree Text A P:Case discussed, along with examination and interview with LE Low. I agree with the plan and management as noted. at 8087 at 1409 RPT #:[id number] OF REPORTPRProgress [id number]:43:00G.[id number] able for patient owojUXKMDTBVZLHZLK6171-70-62W43:45:25 [facility] 2022-09-14 15:56:00 [id number]/3qdEEW+KUAeJXJ V+qAaULvxu3UXLL4QD/mUOXgUsJ4183-99-63R03:56:00 [facility] Progress NoteREPORT#:[id number] REPORT STATUS: SignedDATE:09/14/22 TIME: 155 PATIENT: KARMA ROWLAND UNIT #: [id number]#: [id number] [address] [birth year] AGE: 56 SEX: M ATTEND: Mj Vences MDADM AUTHOR: Braxton Chapin MD * ALL edits or amendments must be made on the electronic/computer document * SubjectivePatient reports: no complaints Objective GeneralVS:Last Documented: Result Date Time Pulse Ox 95 09/14 0734 B/P 150/76 09/14 0734 B/P Mean 101.0 09/14 0734 O2 Delivery Room air 09/14 07 Temp 36.6 09/14 0734 Pulse 82 09/14 0734 Resp 16 09/14 0734 O2 Flow Rate 2 09/08 1322 PATIENT WEIGHT: Weight (lb): 165Weight (oz): 5.55Weight (kg): 75.000 Medications:Active Meds + DC'd Last 24 HrsInsulin Human Lispro (HUMALOG) 7 UNIT AC SUBQ Insulin Glargine (Semglee) 10 UNIT BEDTIME SUBQ Carvedilol (COREG) 25 MG C BK DIN PO Furosemide (LASIX) 20 MG BID 9A 5P PO (DC) Methylprednisolone Sodium Succinate (Solu-Medrol 125 MG Vial) 125 MG DAILY 1400 IV (DC) Daptomycin (CUBICIN 500MG) 500 MG Q24H IV Sodium Chloride (SODIUM CHLORIDE 0.9%) 50 MLMeropenem (MEROPENEM) 500 MG Q12H IV Sterile Water (WATER FOR INJECTION) 10 MLGabapentin (NEURONTIN) 100 MG Q8HR PO Oxycodone/Acetaminophen (PERCOCET 5/325MG TAB) 2 TAB Q4H PRN PRN PO Ferric Sodium Gluconate Complex (FERRLECIT) 125 MG DAILY IV Sodium Chloride (SODIUM CHLORIDE 0.9%) 100 MLFolic Acid (FOLIC ACID) 2 MG DAILY PO Multivitamins (TAB-A-MOHAN) 1 TAB DAILY PO Insulin Glargine (Semglee) 5 UNIT BEDTIME SUBQ (DC) Furosemide (LASIX 20MG INJ) 20 MG BLOOD-DOSE BETWEEN IV (CKD) Sodium Chloride (SODIUM CHLORIDE) 10 ML ASDIR IV Pantoprazole Sodium (PROTONIX) 40 MG Q12HR IV Polyethylene Glycol (MIRALAX) 17 GM DAILY PO Sennosides (Senna Lax 8.6 MG TABLET) 8.6 MG DAILY PO Sodium Chloride (SODIUM CHLORIDE) 10 ML ASDIR PRN IV Amitriptyline HCl (ELAVIL) 25 MG BEDTIME PO Zinc Oxide (ZINC OXIDE 30 GM OINTMENT) 1 APPLIC DAILY TOPICAL Sterile Water (WATER FOR IRRIGATION) DRESSING CHANGE ASDIR PRN IRR Insulin Human Lispro (HUMALOG) 0 AC HS SUBQ Dextrose/Water (DEXTROSE 10% IN WATER) 125 ML ASDIR PRN IV (CKD) Dextrose/Water (DEXTROSE 10% IN WATER) 250 ML ASDIR PRN IV (CKD) Glucagon (GLUCAGON) 1 MG ASDIR PRN IM Lidocaine (LIDODERM) 1 PATCH DAILY TOPICAL Insulin Human Lispro (HUMALOG) 5 UNIT AC SUBQ (DC) Heparin Sodium (HEPARIN 5000 UNITS/ML) 5,000 UNIT Q8HR SUBQ Acetaminophen (TYLENOL) 650 MG Q6H PRN PRN PO Bisacodyl (DULCOLAX) 10 MG DAILY PRN PRN RECTAL Docusate Sodium (COLACE) 100 MG Q12H PRN PRN PO Hydralazine HCl (APRESOLINE) 10 MG Q6H PRN PRN IV Ondansetron HCl (ZOFRAN) 4 MG Q6H PRN PRN IV Physical ExamGeneral appearance: alert, awake Diagnosis, Assessment PlanHospital course to date:Laboratory Tests: 09/14 09/14 09/14 09/14 09/13 1130 0736 0525 0576 1937Chemistry Sodium (134 - 147 mEq/L) 132 L [...] H Calcium (8.0 - 10.5 mg/dL) 7.5 LHematology WBC (4.5 - 11.0 x10 3/uL) 9.5 [...] (Auto) (14.0 - 32.0 %) 13.9 L [place] % (Auto) (4.8 - 9.0 %) 5.1 Eos % (Auto) (0.3 - 3.7 %) 0.0 L Baso % (Auto) (0.0 - 2.0 %) 0.1 Neut # (Auto) (2.0 - 7.6 x10 3/uL) 7.58 Lymph # (Auto) (1.0 - 3.8 x10 3/uL) 1.31 [place] # (Auto) (0.1 - 0.8 x10 3/uL) 0.48 Eos # (Auto) (0.0 - 0.2 x10 3/uL) 0.00 Baso # (Auto) (0.0 - 0.2 x10 3/uL) 0.01 Abs Immat Gran (auto) (0.00 - 0.03 0.07 Hx10 3/uL) Add Manual Diff NO Immature Gran % (0.0 - 2.0 %) 0.7 Nucleated RBC % (0 - 0 %) 0.0 Nucleated RBCs # (Man) (0.0 - 0.1 0.00x10 3/uL) 09/13 1629 Chemistry POC Glucose (70 [...] (Auto) (14.0 - 32.0 %) 10.4 L [place] % (Auto) (4.8 - 9.0 %) 3.5 L Eos % (Auto) (0.3 - 3.7 %) 0.0 L Baso % (Auto) (0.0 - 2.0 %) 0.1 Neut # (Auto) (2.0 - 7.6 x10 3/uL) 8.34 H Lymph # (Auto) (1.0 - 3.8 x10 3/uL) 1.02 Lenoir # (Auto) (0.1 - 0.8 x10 3/uL) 0.34 Eos # (Auto) (0.0 - 0.2 x10 3/uL) 0.00 Baso # (Auto) (0.0 - 0.2 x10 3/uL) 0.01 Abs Immat Gran (auto) (0.00 - 0.03 x10 3/uL) 0.07 H Add Manual Diff NO Immature Gran % (0.0 - 2.0 %) 0.7 Nucleated RBC % (0 - 0 %) 0.0 Nucleated RBCs # (Man) (0.0 - 0.1 x10 3/uL) 0.00 Microbiology: Date/Time Procedure - Status Source Growth [...] % (Auto) (14.0 - 32.0 %) 15.0 Lenoir % (Auto) (4.8 - 9.0 %) 7.9 Eos % (Auto) (0.3 - 3.7 %) 3.8 H Baso % (Auto) (0.0 - 2.0 %) 0.3 Neut # (Auto) (2.0 - 7.6 x10 3/uL) 6.34 Lymph # (Auto) (1.0 - 3.8 x10 3/uL) 1.31 [place]oir # (Auto) (0.1 - 0.8 x10 3/uL) 0.69 Eos # (Auto) (0.0 - 0.2 x10 3/uL) 0.33 H Baso # (Auto) (0.0 - 0.2 x10 3/uL) 0.03 Abs Immat Gran (auto) (0.00 - 0.03 x10 3/uL) 0.06 H Add Manual Diff NO Immature Gran % (0.0 - 2.0 %) 0.7 Nucleated RBC % (0 - 0 %) 0.0 Nucleated RBCs # (Man) (0.0 - 0.1 x10 3/uL) 0.00 Toxicology Random Vancomycin (mcg/mL) 16.7 Laboratory Tests: 09/11 09/11 09/11 09/11 09/11 1532 1445 1114 0541 0445Chemistry Sodium (134 - 147 mEq/L) 134 Potassium [...] MG/DL) 4.7 Magnesium (1.80 - 2.40 mg/dL) 1.90Hematology WBC (4.5 - 11.0 x10 3/uL) 7.9 [...] % (Auto) (14.0 - 32.0 %) 16.1 Lenoir % (Auto) (4.8 - 9.0 %) 9.1 H Eos % (Auto) (0.3 - 3.7 %) 5.6 H Baso % (Auto) (0.0 - 2.0 %) 0.5 Neut # (Auto) (2.0 - 7.6 x10 3/uL) 5.35 Lymph # (Auto) (1.0 - 3.8 x10 3/uL) 1.27 Lenoir # (Auto) (0.1 - 0.8 x10 3/uL) 0.72 Eos # (Auto) (0.0 - 0.2 x10 3/uL) 0.44 H Baso # (Auto) (0.0 - 0.2 x10 3/uL) 0.04 Abs Immat Gran (auto) (0.00 - 0.03 0.06 Hx10 3/uL) Add Manual Diff NO Immature Gran % (0.0 - 2.0 %) 0.8 Nucleated RBC % (0 - 0 %) 0.0 Nucleated RBCs # (Man) (0.0 - 0.1 0.00x10 3/uL)Toxicology Random Vancomycin (mcg/mL) 18.3 09/10 1851 Chemistry POC Glucose (70 - 110 MG/DL) 97 Laboratory Tests: 09/10 09/10 09/10 09/10 09/10 1715 1625 1430 1007 0545Chemistry Sodium (134 - 147 mEq/L) 135 Potassium [...] MG/DL) 4.6 Magnesium (1.80 - 2.40 mg/dL) 1.89Hematology WBC (4.5 - 11.0 x10 3/uL) 8.6 [...] % (Auto) (14.0 - 32.0 %) 15.5 Lenoir % (Auto) (4.8 - 9.0 %) 8.5 Eos % (Auto) (0.3 - 3.7 %) 5.5 H Baso % (Auto) (0.0 - 2.0 %) 0.4 Neut # (Auto) (2.0 - 7.6 x10 3/uL) 5.94 Lymph # (Auto) (1.0 - 3.8 x10 3/uL) 1.33 [place] # (Auto) (0.1 - 0.8 x10 3/uL) 0.73 Eos # (Auto) (0.0 - 0.2 x10 3/uL) 0.47 H Baso # (Auto) (0.0 - 0.2 x10 3/uL) 0.03 Abs Immat Gran (auto) (0.00 - 0.03 0.06 Hx10 3/uL) Add Manual Diff NO Immature Gran % (0.0 - 2.0 %) 0.7 Nucleated RBC % (0 - 0 %) 0.0 Nucleated RBCs # (Man) (0.0 - 0.1 0.00x10 3/uL)Toxicology Random Vancomycin (mcg/mL) 15.7 09/10 09/09 0541 1911 Chemistry POC Glucose (70 - 110 MG/DL) 154 H 102 Recent Impressions:ULTRASOUND - US RETROPERITONEAL COM 09/10 1311 Report Impression - Status: SIGNED Entered: 09/10/2022 1503 IMPRESSION: No acute findings. Impression By: Yared Mares M.D. Laboratory Tests: 09/09 09/09 09/09 09/09 09/09 [...] % (Auto) (14.0 - 32.0 %) 16.1 [place] % (Auto) (4.8 - 9.0 %) 9.2 H Eos % (Auto) (0.3 - 3.7 %) 4.7 H Baso % (Auto) (0.0 - 2.0 %) 0.4 Neut # (Auto) (2.0 - 7.6 x10 3/uL) 6.38 Lymph # (Auto) (1.0 - 3.8 x10 3/uL) 1.49 [place] # (Auto) (0.1 - 0.8 x10 3/uL) 0.85 H Eos # (Auto) (0.0 - 0.2 x10 3/uL) 0.43 H Baso # (Auto) (0.0 - 0.2 x10 3/uL) 0.04 Abs Immat Gran (auto) (0.00 - 0.03 x10 3/uL) 0.05 H Add Manual Diff NO Immature Gran % (0.0 - 2.0 %) 0.5 Nucleated RBC % (0 - 0 %) 0.0 Nucleated RBCs # (Man) (0.0 - 0.1 x10 3/uL) 0.00 Retic Count (auto) (0.3 - 2.3 [...] (Auto) (14.0 - 32.0 %) 13.7 L [place] % (Auto) (4.8 - 9.0 %) 7.2 Eos % (Auto) (0.3 - 3.7 %) 4.8 H Baso % (Auto) (0.0 - 2.0 %) 0.3 Neut # (Auto) (2.0 - 7.6 x10 3/uL) 6.64 Lymph # (Auto) (1.0 - 3.8 x10 3/uL) 1.24 [place] # (Auto) (0.1 - 0.8 x10 3/uL) 0.65 Eos # (Auto) (0.0 - 0.2 x10 3/uL) 0.43 H Baso # (Auto) (0.0 - 0.2 x10 3/uL) 0.03 Abs Immat Gran (auto) (0.00 - 0.03 x10 3/uL) 0.06 H Add Manual Diff NO Immature Gran % (0.0 - 2.0 %) 0.7 Nucleated RBC % (0 - 0 %) 0.0 Nucleated RBCs # (Man) (0.0 - 0.1 x10 3/uL) 0.00 Laboratory Tests: 09/07 09/07 09/07 09/07 09/07 1554 1137 1127 0618 0510 Chemistry Creatinine (0.6 - 1.3 mg/dL) 1.4 H POC Glucose (70 - 110 MG/DL) 112 H 51 L 42 L 135 H Hematology Hgb (12.5 - 16.9 g/dL) 8.4 L Hct (37.5 - 50.7 %) 26.2 L Toxicology Random Vancomycin (mcg/mL) 14.7 04/15 04/15 2226 2108 Chemistry POC Glucose (70 - [...] 1739 Occult Blood - COMP STOOL Recent Impressions:RADIOLOGY - XR ABDOMEN 1V (KUB) 09/04 1648 Report Impression - Status: SIGNED Entered: 09/04/2022 1757 IMPRESSION: Benign appearance of the abdomen.Impression By: [id number] - Roger Parra M.D.ULTRASOUND - DUP VEIN UNI/LTD 09/05 1146 Report Impression - Status: SIGNED Entered: 09/05/2022 1333 IMPRESSION: 1. No evidence of deep vein thrombosis. 2. Complex heterogeneous hypoechoic fluid collection in the left calf region measuring 8.4 x 2.8 x 2.5 cm; there is no internal vascularity or peripheral hyperemia. May represent a hematoma.Impression By: Kacey Ga M.D.RADIOLOGY - XR CHEST 1 V 09/05 1432 Report Impression - Status: SIGNED Entered: 09/05/2022 1515 IMPRESSION: Minimal bibasilar pulmonary opacitiesImpression By: Yared Mares M.D. Laboratory Tests: 09/04 09/04 09/04 09/04 09/04 [...] COLB STOOL 1.Diabetes mellitus type 2 uncontrolled complications.2. Status post right BKA3. Status post gangrene of the right foot.4. Sepsis5. Prostate abscess.6. AnemiaBlood sugar 385-137 mg/dL.H/H 8.11/17.Adjust insulin dose.PT and OT. at 1557 RPT #:[id number] OF REPORTPRProgress [id number]:56:00G.[id number] able for patient bvaaFFLHEZDSFJSXTL7706-78-55Z26:57:44 [facility] 2022-09-14 15:33:00 [id number] dTikoxZK4+BTC1pXUkbjUkR7AdaJ5 K4aQ1c/YpZsfY0CdtR4YqSQSlYJ3238-28-47F09:33:00 [facility] ([facility])Hospitalist Progress NoteREPORT#:[id number] REPORT STATUS: SignedDATE:09/14/22 TIME: 1533 PATIENT: KARMA ROWLAND UNIT #: [id number]#: [id number] [address] AGE: 56 SEX: M ATTEND: Mj Vences MDADM AUTHOR: Meera Chavira DO * ALL edits or amendments must be made on the electronic/computer document * SubjectiveChief complaint:BS better Review of SystemsAll systems rev neg: except as noted Objective GeneralVS/I O:Vital Signs: Date Time Temp Pulse Resp B/P B/P Pulse O2 O2 Flow FiO2 Mean Ox Delivery Rate 09/14 0734 [...] Output, Urine 900 PATIENT WEIGHT: Weight (lb): 165Weight (oz): 5.55Weight (kg): 75.000 Medications:Active Meds + DC'd Last 24 HrsInsulin Human Lispro (HUMALOG) 7 UNIT AC SUBQ Insulin Glargine (Semglee) 10 UNIT BEDTIME SUBQ Carvedilol (COREG) 25 MG C BK DIN PO Furosemide (LASIX) 20 MG BID 9A 5P PO (DC) Methylprednisolone Sodium Succinate (Solu-Medrol 125 MG Vial) 125 MG DAILY 1400 IV (DC) Daptomycin (CUBICIN 500MG) 500 MG Q24H IV Sodium Chloride (SODIUM CHLORIDE 0.9%) 50 MLMeropenem (MEROPENEM) 500 MG Q12H IV Sterile Water (WATER FOR INJECTION) 10 MLGabapentin (NEURONTIN) 100 MG Q8HR PO Oxycodone/Acetaminophen (PERCOCET 5/325MG TAB) 2 TAB Q4H PRN PRN PO Ferric Sodium Gluconate Complex (FERRLECIT) 125 MG DAILY IV Sodium Chloride (SODIUM CHLORIDE 0.9%) 100 MLFolic Acid (FOLIC ACID) 2 MG DAILY PO Multivitamins (TAB-A-MOHAN) 1 TAB DAILY PO Insulin Glargine (Semglee) 5 UNIT BEDTIME SUBQ (DC) Furosemide (LASIX 20MG INJ) 20 MG BLOOD-DOSE BETWEEN IV (CKD) Sodium Chloride (SODIUM CHLORIDE) 10 ML ASDIR IV Pantoprazole Sodium (PROTONIX) 40 MG Q12HR IV Polyethylene Glycol (MIRALAX) 17 GM DAILY PO Sennosides (Senna Lax 8.6 MG TABLET) 8.6 MG DAILY PO Sodium Chloride (SODIUM CHLORIDE) 10 ML ASDIR PRN IV Amitriptyline HCl (ELAVIL) 25 MG BEDTIME PO Zinc Oxide (ZINC OXIDE 30 GM OINTMENT) 1 APPLIC DAILY TOPICAL Sterile Water (WATER FOR IRRIGATION) DRESSING CHANGE ASDIR PRN IRR Insulin Human Lispro (HUMALOG) 0 AC HS SUBQ Dextrose/Water (DEXTROSE 10% IN WATER) 125 ML ASDIR PRN IV (CKD) Dextrose/Water (DEXTROSE 10% IN WATER) 250 ML ASDIR PRN IV (CKD) Glucagon (GLUCAGON) 1 MG ASDIR PRN IM Lidocaine (LIDODERM) 1 PATCH DAILY TOPICAL Insulin Human Lispro (HUMALOG) 5 UNIT AC SUBQ (DC) Heparin Sodium (HEPARIN 5000 UNITS/ML) 5,000 UNIT Q8HR SUBQ Acetaminophen (TYLENOL) 650 MG Q6H PRN PRN PO Bisacodyl (DULCOLAX) 10 MG DAILY PRN PRN RECTAL Docusate Sodium (COLACE) 100 MG Q12H PRN PRN PO Hydralazine HCl (APRESOLINE) 10 MG Q6H PRN PRN IV Ondansetron HCl (ZOFRAN) 4 MG Q6H PRN PRN IV Dietitian nutrition assessment Physical ExamGeneral appearance: alert, awake, oriented, no acute distress, pleasant, conversational, mental status normal, no respiratory distressHead/Eyes: atraumatic, normocephalicENT: moist mucosal membranesNeck: no JVDCardiovascular: normal heart sounds, regular rate rhythmRespiratory: aerating well, clear to auscultationAbdomen: non-tender, normal bowel soundsGenitourinary: no bladder distentionExtremities: moves all, normal capillary refillMusculoskeletal: normal inspection, painless range of motionNeuro/DIRECTOR OPERATING ROOM: alert, oriented X 3, 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 Considered stroke alert: noSkin: dry, intactPsychiatry: normal affect, normal judgment/insight ResultsFindings/Data:Laboratory Tests 09/14 09/14 09/14 09/14 09/13 1130 [...] (Auto) (14.0 - 32.0 %) 13.9 L [place] % (Auto) (4.8 - 9.0 %) 5.1 Eos % (Auto) (0.3 - 3.7 %) 0.0 L Baso % (Auto) (0.0 - 2.0 %) 0.1 Neut # (Auto) (2.0 - 7.6 x10 3/uL) 7.58 Lymph # (Auto) (1.0 - 3.8 x10 3/uL) 1.31 [place] # (Auto) (0.1 - 0.8 x10 3/uL) 0.48 Eos # (Auto) (0.0 - 0.2 x10 3/uL) 0.00 Baso # (Auto) (0.0 - 0.2 x10 3/uL) 0.01 Abs Immat Gran (auto) (0.00 - 0.03 x10 3/uL) 0.07 H Add Manual Diff NO Immature Gran % (0.0 - 2.0 %) 0.7 Nucleated RBC % (0 - 0 %) 0.0 Nucleated RBCs # (Man) (0.0 - 0.1 x10 3/uL) 0.00 Diagnosis, Assessment PlanConsultants: cardiology, endocrinology, hospitalist, infectious disease, podiatry Free Text DxA P NotesFree text DxA P notes:Gangrene of right foot s/p Below- knee amputation Prostate abscessMRSA bacteremiaHx of Diabetes, Diabetic neuropathyHTNAKI PLANS: Continue with PT/OT per primary Wound care as directedHepain PPXIV ironBP consistently high, increase Metoprolol to 25 mg BIDBS better with insulin adjustment. Likely due to steroids started by Nephrologyfor AINtrend renal function closely, check BMP in ampain control at 1536 RPT #:[id number] OF REPORTPRProgress [id number]:33:00G.[id number] able for patient gqebDKRAWWSDXULVFV9507-81-76S61:37:13 [facility] 2022-09-14 11:38:00 [id number] x+yMoDZXFEPlWu7o4u3lWS6AAwVvP RWxhnRE066RFV4sZs7BYwGdxvHH6387-76-98U38:38:00 [facility] ([facility])Nephrology Progress NoteREPORT#:[id number] REPORT STATUS: SignedDATE:09/14/22 TIME: 1138 PATIENT: KARMA ROWLAND UNIT #: [id number]#: [id number] [address] [birth year] AGE: 56 SEX: M ATTEND: Mj Vences MDADM AUTHOR: Elodia Neri MD * ALL edits or amendments must be made on the electronic/computer document * SubjectiveChief complaint:Infected footHPI:Patient seen and evaluated on 09/09/2022, note started, records reviewed and orders placed on 09/08/2022, 56-year-old male with history of diabetes mellitus type 2, hypertension and peripheral vascular disease who was initially admitted to acute care with altered mental status and right foot infection/gangrene, 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 Patient had persistent anemia requiring blood transfusion. His fecal occult blood was positive and his creatinine was 1.2 and increased to 1.4 today, laboratories today showed hemoglobin 8.5, platelet 231, blood count 9.1, sodium 135, potassium 4.6, CO2 22, BUN 22, creatinine 1.4. Renal consult was requested for evaluation management of elevated BUN and creatinine and if his decreased GFR iscontributing to his anemia. Review of SystemsROS comments:Constitutional:Reports: fatigue. Denies: chills, fever. Skin:Reports: swelling. Denies: rash. Allergy/Immun:Denies: hives, itching. Eyes:Denies: redness, discharge. ENT:Denies: ear drainage, ear ringing. Respiratory:Denies: hemoptysis, SOB. Cardiovascular:Denies: chest pain. Objective GeneralVS/I O:Vital Signs: Date Time Temp Pulse Resp B/P B/P Pulse O2 O2 Flow FiO2 Mean Ox Delivery Rate 09/14 0734 [...] Output, Urine 900 PATIENT WEIGHT: Weight (lb): 165Weight (oz): 5.55Weight (kg): 75.000 MedicationsActive Meds + DC'd Last 24 HrsInsulin Human Lispro (HUMALOG) 7 UNIT AC SUBQ Insulin Glargine (Semglee) 10 UNIT BEDTIME SUBQ Carvedilol (COREG) 25 MG C BK DIN PO Furosemide (LASIX) 20 MG BID 9A 5P PO (DC) Methylprednisolone Sodium Succinate (Solu-Medrol 125 MG Vial) 125 MG DAILY 1400 IV Daptomycin (CUBICIN 500MG) 500 MG Q24H IV Sodium Chloride (SODIUM CHLORIDE 0.9%) 50 MLMeropenem (MEROPENEM) 500 MG Q12H IV Sterile Water (WATER FOR INJECTION) 10 MLHydromorphone HCl (DILAUDID) 0.5 MG DAILY PRN PRN IV (DC) Gabapentin (NEURONTIN) 100 MG Q8HR PO Oxycodone/Acetaminophen (PERCOCET 5/325MG TAB) 2 TAB Q4H PRN PRN PO Ferric Sodium Gluconate Complex (FERRLECIT) 125 MG DAILY IV Sodium Chloride (SODIUM CHLORIDE 0.9%) 100 MLFolic Acid (FOLIC ACID) 2 MG DAILY PO Multivitamins (TAB-A-MOHAN) 1 TAB DAILY PO Carvedilol (COREG) 12.5 MG C BK DIN PO (DC) Insulin Glargine (Semglee) 5 UNIT BEDTIME SUBQ (DC) Furosemide (LASIX 20MG INJ) 20 MG BLOOD-DOSE BETWEEN IV (CKD) Sodium Chloride (SODIUM CHLORIDE) 10 ML ASDIR IV Pantoprazole Sodium (PROTONIX) 40 MG Q12HR IV Polyethylene Glycol (MIRALAX) 17 GM DAILY PO Sennosides (Senna Lax 8.6 MG TABLET) 8.6 MG DAILY PO Sodium Chloride (SODIUM CHLORIDE) 10 ML ASDIR PRN IV Amitriptyline HCl (ELAVIL) 25 MG BEDTIME PO Zinc Oxide (ZINC OXIDE 30 GM OINTMENT) 1 APPLIC DAILY TOPICAL Sterile Water (WATER FOR IRRIGATION) DRESSING CHANGE ASDIR PRN IRR Insulin Human Lispro (HUMALOG) 0 AC HS SUBQ Dextrose/Water (DEXTROSE 10% IN WATER) 125 ML ASDIR PRN IV (CKD) Dextrose/Water (DEXTROSE 10% IN WATER) 250 ML ASDIR PRN IV (CKD) Glucagon (GLUCAGON) 1 MG ASDIR PRN IM Lidocaine (LIDODERM) 1 PATCH DAILY TOPICAL Insulin Human Lispro (HUMALOG) 5 UNIT AC SUBQ (DC) Heparin Sodium (HEPARIN 5000 UNITS/ML) 5,000 UNIT Q8HR SUBQ Acetaminophen (TYLENOL) 650 MG Q6H PRN PRN PO Bisacodyl (DULCOLAX) 10 MG DAILY PRN PRN RECTAL Docusate Sodium (COLACE) 100 MG Q12H PRN PRN PO Hydralazine HCl (APRESOLINE) 10 MG Q6H PRN PRN IV Ondansetron HCl (ZOFRAN) 4 MG Q6H PRN PRN IV Physical ExamGeneral appearance: alert, awake, orientedHead/eyes: atraumatic, normocephalicENT: normal noseNeck: non-tender, supple/no meningismusCardiovascular: normal heart sounds, no rubRespiratory: aerating well, symmetric expansionAbdomen: non-tender, softGenitourinary: no flank painExtremities: non-tender, no edemaMusculoskeletal: no CVA tenderness, no tendernessNeuro/DIRECTOR OPERATING ROOM: alert, 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 Considered stroke alert: noSkin: dry, intact Diagnosis, Assessment PlanFree Text A P:Patient seen and evaluated, discussed with care team, images and laboratories reviewed.Diabetes mellitus: Insulin: Monitor blood sugar closely and adjust medications as needed, followed by endocrinology.Hypertension: Blood pressure is not well controlled, increase Coreg to 12.5 mg p.o. twice daily: Monitor blood pressure closely and adjust medications as neededRight foot gangrene/infection status post right BKAAnemia: Status post EGD and colonoscopy which were negative for active GI bleeding, patient had work-up in July 2022 which showed very high B12, normal folate, very low iron saturation but very high ferritin which was likely relatedto his infection, likely patient is very iron deficient, will repeat lab and give IV iron if needed. We will check serum immunofixation.Acute kidney injury: We will check renal bladder ultrasound, check postvoid residual, check urine protein creatinine ratioHypomagnesemia: We will supplement09/10/2022 laboratory this morning showed sodium 135, potassium 4.2, CO2 21, BUN 25, creatinine 1.9 continues to worsen, etiology unclear, however his development some eosinophilia not sure if he is developing AIN, suggest changingcefepime to a different class of antibiotic if possible, will check renal bladder ultrasound09/11/2022 laboratory this morning showed sodium 134, potassium 4.3, CO2 22, BUN 26, creatinine 2 up from 1.9, hopefully creatinine is plateauing, renal ultrasound negative.09/12/2022 laboratory this morning showed sodium 134, potassium 4.2, CO2 20, BUN 31, creatinine 2.4 continues to worsen, discussed with ID, AIN is probably the etiology of the unexplained deterioration of his renal function, antibiotics to be adjusted by infectious disease, will give Solu-Medrol 125 mg IV daily for 3 days. Significant lower extremity edema, will start Lasix 20 mg p.o. twice daily.23: pt was seen and examined. Very thirsty. serum creatinine is worsening today. Vancomycin was stopped yesterday and Solu medrol was started. Mild hypovolemic hyponatremia. Will DC lasix and monitor his renal functions. BP is well controlled. 23: pt was seen and examined. Feels better but still thirsty. I stopped hislasix. will start NS at 75 cc for one Leter only. serum creatinine is improving.Received three doses of Solu Medrol a well. BP is on the higher side, likely secondary to steroids. will monitor for now. mild hypovelmic hyponatremia. also could be secondary to hyperglycemia. Consultants: cardiology, endocrinology, hospitalist, infectious disease, podiatry at 1140 RPT #:[id number] OF REPORTPRProgress [id number]:38:00G.[id number] able for patient lfkwSWDTTNOVIOUTPU6711-05-22F75:41:02 [facility] 2022-09-14 10:34:00 [id number] SImrhuvybfr9C5GtyyVRBrzVF/Koki Ssqcro9mbz3AtubrzRMivPmOhK20004-98-48W13:34:00 [facility] ([facility])Podiatry Progress NoteREPORT#:[id number] REPORT STATUS: SignedDATE:09/14/22 TIME: 1034 PATIENT: KARMA ROWLAND UNIT #: [id number]#: [id number] [address] [birth year] AGE: 56 SEX: M ATTEND: Mj Vences MDADM AUTHOR: Liam Pedersen DPM * ALL edits or amendments must be made on the electronic/computer document * SubjectiveChief complaint:left heel ulcer. left ankle painPatient reports: no confusion, no cough, no dizziness, no fever, no heartburn, no nausea Objective GeneralVS:Last Documented: Result Date Time Pulse Ox 95 09/14 733 B/P 150/76 09/14 733 B/P Mean 101.0 09/14 733 O2 Delivery Room air 09/14 733 Temp 36.6 09/14 733 Pulse 82 09/14 733 Resp 16 09/14 733 O2 Flow Rate 2 09/08 1322 PATIENT WEIGHT: Weight (lb): 165Weight (oz): 5.55Weight (kg): 75.000 Medications:Active Meds + DC'd Last 24 HrsInsulin Human Lispro (HUMALOG) 7 UNIT AC SUBQ Insulin Glargine (Semglee) 10 UNIT BEDTIME SUBQ Carvedilol (COREG) 25 MG C BK DIN PO Furosemide (LASIX) 20 MG BID 9A 5P PO (DC) Methylprednisolone Sodium Succinate (Solu-Medrol 125 MG Vial) 125 MG DAILY 1400 IV Daptomycin (CUBICIN 500MG) 500 MG Q24H IV Sodium Chloride (SODIUM CHLORIDE 0.9%) 50 MLMeropenem (MEROPENEM) 500 MG Q12H IV Sterile Water (WATER FOR INJECTION) 10 MLHydromorphone HCl (DILAUDID) 0.5 MG DAILY PRN PRN IV (DC) Gabapentin (NEURONTIN) 100 MG Q8HR PO Oxycodone/Acetaminophen (PERCOCET 5/325MG TAB) 2 TAB Q4H PRN PRN PO Ferric Sodium Gluconate Complex (FERRLECIT) 125 MG DAILY IV Sodium Chloride (SODIUM CHLORIDE 0.9%) 100 MLFolic Acid (FOLIC ACID) 2 MG DAILY PO Multivitamins (TAB-A-MOHAN) 1 TAB DAILY PO Carvedilol (COREG) 12.5 MG C BK DIN PO (DC) Insulin Glargine (Semglee) 5 UNIT BEDTIME SUBQ (DC) Furosemide (LASIX 20MG INJ) 20 MG BLOOD-DOSE BETWEEN IV (CKD) Sodium Chloride (SODIUM CHLORIDE) 10 ML ASDIR IV Pantoprazole Sodium (PROTONIX) 40 MG Q12HR IV Polyethylene Glycol (MIRALAX) 17 GM DAILY PO Sennosides (Senna Lax 8.6 MG TABLET) 8.6 MG DAILY PO Sodium Chloride (SODIUM CHLORIDE) 10 ML ASDIR PRN IV Amitriptyline HCl (ELAVIL) 25 MG BEDTIME PO Zinc Oxide (ZINC OXIDE 30 GM OINTMENT) 1 APPLIC DAILY TOPICAL Sterile Water (WATER FOR IRRIGATION) DRESSING CHANGE ASDIR PRN IRR Insulin Human Lispro (HUMALOG) 0 AC HS SUBQ Dextrose/Water (DEXTROSE 10% IN WATER) 125 ML ASDIR PRN IV (CKD) Dextrose/Water (DEXTROSE 10% IN WATER) 250 ML ASDIR PRN IV (CKD) Glucagon (GLUCAGON) 1 MG ASDIR PRN IM Lidocaine (LIDODERM) 1 PATCH DAILY TOPICAL Insulin Human Lispro (HUMALOG) 5 UNIT AC SUBQ (DC) Heparin Sodium (HEPARIN 5000 UNITS/ML) 5,000 UNIT Q8HR SUBQ Acetaminophen (TYLENOL) 650 MG Q6H PRN PRN PO Bisacodyl (DULCOLAX) 10 MG DAILY PRN PRN RECTAL Docusate Sodium (COLACE) 100 MG Q12H PRN PRN PO Hydralazine HCl (APRESOLINE) 10 MG Q6H PRN PRN IV Ondansetron HCl (ZOFRAN) 4 MG Q6H PRN PRN IV I O:24 hour I O ending at 0700: 09/14 0700 09/13 1900 Intake Total 250 Output Total 900 Balance -650 Intake, Oral 250 Number 0 Incontinent Voids Number Voids 0 Output, Urine 900 Dietitian nutrition assessmentThe data set between the solid lines has been imported from the dietitian's assessment. BMI Calculated: 26.7Nutrition related diagnosis: Nutrition diagnosis details: Nutrition problem: Altered nutrition labsNutrition etiology: DMNutrition signs and symptoms: HYPER/HYPOGLYCEMIA, A1C >14Nutrition prescription: CONTINUE DM DIETDietitian name: You Palmer, DIETAssessment completed: 09/09/22 Physical ExamGeneral appearance: alert, awake, orientedWound/incision: Location:left foot Site condition: dp/pt 2/4 left. light touch decreased left foot. ulcer starting at posterior left heel. eccymosis noted. early likely stage 1. left ankle has edema. pain with aggressive ROM left ankle. dorsal left midfoot is starting to have tissue injuryLE vascular pulse assess:2+ L posterior tibialis, 2+ L dorsalis pedis Considered stroke alert: noUlcer: Location: DTI dorsal left midfoot ResultsFindings/Data:Laboratory Tests: 09/14 09/14 09/14 09/13 0736 0526 0525 1937Chemistry Sodium (134 - 147 mEq/L) 132 L [...] H Calcium (8.0 - 10.5 mg/dL) 7.5 LHematology WBC (4.5 - 11.0 x10 3/uL) 9.5 [...] (Auto) (14.0 - 32.0 %) 13.9 L [place] % (Auto) (4.8 - 9.0 %) 5.1 Eos % (Auto) (0.3 - 3.7 %) 0.0 L Baso % (Auto) (0.0 - 2.0 %) 0.1 Neut # (Auto) (2.0 - 7.6 x10 3/uL) 7.58 Lymph # (Auto) (1.0 - 3.8 x10 3/uL) 1.31 [place] # (Auto) (0.1 - 0.8 x10 3/uL) 0.48 Eos # (Auto) (0.0 - 0.2 x10 3/uL) 0.00 Baso # (Auto) (0.0 - 0.2 x10 3/uL) 0.01 Abs Immat Gran (auto) (0.00 - 0.03 x10 3/uL) 0.07 H Add Manual Diff NO Immature Gran % (0.0 - 2.0 %) 0.7 Nucleated RBC % (0 - 0 %) 0.0 Nucleated RBCs # (Man) (0.0 - 0.1 x10 3/uL) 0.00 09/13 09/13 1629 1105 Chemistry POC Glucose (70 - 110 MG/DL) 130 H 307 H Diagnosis, Assessment PlanFree Text A P:DM with neuropathyearly decub ulcer left heelOA/edema left ankleearly ulcer/DTI dorsal left midfoot zinc oxide to foot and heelfoam to heelon IV abxon PO gabapentinoffloading bootace wraps to ankle, only when OOB with therapy. zinc oxide applied to dorsal left midfoot early ulcerConsultants: cardiology, endocrinology, hospitalist, infectious disease, podiatry at 1035 RPT #:[id number] OF REPORTPRProgress rpdk2063-09-57V85:34:00G.[id number] able for patient ubbnNFODWECIRGMPYQ1589-78-80P08:36:03 [facility] 2022-09-14 07:15:00 [id number] 4kXfPWbeSaIIhbSqieEBUcEw7VbtI FgLqIzqyLo8khX4y0de1PzR64tf9943-86-57E62:15:00 [facility] Progress NoteREPORT#:[id number] REPORT STATUS: SignedDATE:09/14/22 TIME: 0715 PATIENT: KARMA ROWLAND UNIT #: [id number]#: [id number] [address] [birth year] AGE: 56 SEX: M ATTEND: Mj Vences MDADM AUTHOR: Guero Candelaria * ALL edits or amendments must be made on the electronic/computer document * SubjectiveChief complaint:Rehab follow-upDoing wellReports thigh and pelvic area edemaEating 75-100% at bedside+ BMDenies DICKENS/N/V/D/CP14 systems reviewed and neg. except that above.History of present illness:56 yo HAM with long h/o DM, and HTN who was admitted for fever, flulike symptomsand altered mental status on 08/18. He was doing well until about 3 days prior toadmission when he noted blister to have formed on the dorsum of his foot. His foot started progressively getting more swollen and the blisters started enlarging and extending to his lateral foot and ankle. He started feeling weak and nauseated. He was noted to have altered mentation and was brought to our ER.He was noted to be in DKA with Blood sugars greater than 600. He was seen by podiatry and surgery for BLE wounds and infection. He was treated in ICU for sepsis and DKA. He underwent incisional and excisional debridement of right footand right ankle by podiatry. Patient also found to have prostate abscess underwent transrectal ultrasound aspiration of abscess and transurethral resection of prostate and unroofing of abscess by urology Dr. Du. Endocrinology treated the DKA and blood sugars much improved. Patient's right foot was not salvageable and patient underwent right BKA by Dr. LEROY on 08/28. Patient blood cultures showed MRSA. Patient continued on antibiotics as per ID. MRI of the pelvis and foot completed. Patient required multiple PRBCs for anemia. Patient was found to have a possible small hematoma of the left calf onultrasound. He complains of pain and swelling of the left ankle. Patient hemodynamically stable and plans are to be transferred to stepdown unit. He is on heparin subcu for VTE. After surgery he is now being mobilized by PT and OT.He is wearing a maxine-tech orthotic for right knee/BKA protection. Prior to admission the patient was independent living in a single-story house with his spouse with a few steps up to front and back door. 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 is at bedside. Patient denies nausea, vomiting, fever, chills, chest pain, shortness of breath with dizziness. He is requiring IV Dilaudid for pain control. Mental status back to baseline. Pt is progressing slowly with therapy d/t weakness and pain, self care deficit, decreased endurance and balance, and decreased functional mobility. Pt requiring acute inpt rehab for multidisciplinary team of nursing, therapy, and physicians. Pt iswilling and able to partici- kathleen in 3 hr/day inpt rehab to d/c home safely. Pt's prior level of function was independent. Objective GeneralVS:Vital Signs: Date Time Temp Pulse Resp B/P B/P Pulse O2 O2 Flow FiO2 Mean Ox Delivery Rate 09/14 0038 98.1 83 16 161/84 109.8 96 09/13 1935 97.5 85 162/81 107.6 95 09/13 1632 97.5 78 18 131/77 95.0 95 Room air 09/13 1108 97.3 88 18 148/78 101.3 90 Room air PATIENT WEIGHT: Weight (lb): 165Weight (oz): 5.55Weight (kg): 75.000 Medications:Active Meds + DC'd Last 24 HrsInsulin Human Lispro (HUMALOG) 7 UNIT AC SUBQ Insulin Glargine (Semglee) 10 UNIT BEDTIME SUBQ Carvedilol (COREG) 25 MG C BK DIN PO Furosemide (LASIX) 20 MG BID 9A 5P PO (DC) Methylprednisolone Sodium Succinate (Solu-Medrol 125 MG Vial) 125 MG DAILY 1400 IV Daptomycin (CUBICIN 500MG) 500 MG Q24H IV Sodium Chloride (SODIUM CHLORIDE 0.9%) 50 MLMeropenem (MEROPENEM) 500 MG Q12H IV Sterile Water (WATER FOR INJECTION) 10 MLHydromorphone HCl (DILAUDID) 0.5 MG DAILY PRN PRN IV (DC) Gabapentin (NEURONTIN) 100 MG Q8HR PO Oxycodone/Acetaminophen (PERCOCET 5/325MG TAB) 2 TAB Q4H PRN PRN PO Ferric Sodium Gluconate Complex (FERRLECIT) 125 MG DAILY IV Sodium Chloride (SODIUM CHLORIDE 0.9%) 100 MLFolic Acid (FOLIC ACID) 2 MG DAILY PO Multivitamins (TAB-A-MOHAN) 1 TAB DAILY PO Carvedilol (COREG) 12.5 MG C BK DIN PO (DC) Insulin Glargine (Semglee) 5 UNIT BEDTIME SUBQ (DC) Furosemide (LASIX 20MG INJ) 20 MG BLOOD-DOSE BETWEEN IV (CKD) Sodium Chloride (SODIUM CHLORIDE) 10 ML ASDIR IV Pantoprazole Sodium (PROTONIX) 40 MG Q12HR IV Polyethylene Glycol (MIRALAX) 17 GM DAILY PO Sennosides (Senna Lax 8.6 MG TABLET) 8.6 MG DAILY PO Sodium Chloride (SODIUM CHLORIDE) 10 ML ASDIR PRN IV Amitriptyline HCl (ELAVIL) 25 MG BEDTIME PO Zinc Oxide (ZINC OXIDE 30 GM OINTMENT) 1 APPLIC DAILY TOPICAL Sterile Water (WATER FOR IRRIGATION) DRESSING CHANGE ASDIR PRN IRR Insulin Human Lispro (HUMALOG) 0 AC HS SUBQ Dextrose/Water (DEXTROSE 10% IN WATER) 125 ML ASDIR PRN IV (CKD) Dextrose/Water (DEXTROSE 10% IN WATER) 250 ML ASDIR PRN IV (CKD) Glucagon (GLUCAGON) 1 MG ASDIR PRN IM Lidocaine (LIDODERM) 1 PATCH DAILY TOPICAL Insulin Human Lispro (HUMALOG) 5 UNIT AC SUBQ (DC) Heparin Sodium (HEPARIN 5000 UNITS/ML) 5,000 UNIT Q8HR SUBQ Acetaminophen (TYLENOL) 650 MG Q6H PRN PRN PO Bisacodyl (DULCOLAX) 10 MG DAILY PRN PRN RECTAL Docusate Sodium (COLACE) 100 MG Q12H PRN PRN PO Hydralazine HCl (APRESOLINE) 10 MG Q6H PRN PRN IV Ondansetron HCl (ZOFRAN) 4 MG Q6H PRN PRN IV Dietitian nutrition assessmentThe data set between the solid lines has been imported from the dietitian's assessment. BMI Calculated: 26.7Nutrition related diagnosis: Nutrition diagnosis details: Nutrition problem: Altered nutrition labsNutrition etiology: DMNutrition signs and symptoms: HYPER/HYPOGLYCEMIA, A1C >14Nutrition prescription: CONTINUE DM DIETDietitian name: You Palmer, DIETAssessment completed: 09/09/22 Functional ProgressFunctional progress:PT daily note comment: s. patient agreed to PT, reported continued swelling to le, and low back pain 01/01/ O. PATIENT SUPINE IN BED, WORKED ON L EEX IN SUPINE ACROSS ALL PLANES, PATIENT WORKED ON BED MOB, CUES TO ROLL TO LEFT AND PUSH OF WITH ELBOW, ABLE TO SIT UP EOB WITH CGA FOR SAFETY , WORKED ON SQUAT PIVOT TRANSFERS WITH WC SET UP TO LEFT, EDUCATED ON LOCKING BRAKES AND MIN A FOR SQUAT PIVOT TRANSFER TO , PATIENT WORKED ON WC PROPULSION AROUND THE UNIT WITH MOD I, 200 FEET X 2. PATIENT WORKED ONLEE X IN WC TO INCREASE LE STRENGTH, [...] SITTING UP IN WC WITH CALL BUTTON INREACH, INSTRUCTIONS TO CALL FOR ASSISTANCE/. A. PATIENT IS PROGRESSING WITH PT, REQUIRES MIN AFOR TRANSFERS AND IMPROVING STANDING IN PARALLEL BARSWITH CGA . Physical ExamGeneral appearance: alert, awakePsych: alert, normal affect, oriented x 3HEENT: anicteric, sclera clearNeck: supple, no JVDCardiovascular: S1/S2, no murmurRespiratory: aerating well, clear bilaterallyAbdomen: bowel sounds present, non-distended, soft, non-tenderSkin: no rash, R BKA HEALING. L ankle/foot wrapped with kerlixMusculoskeletal - general: Musculoskeletal - general: swelling (LLE, calve NT, homans neg), BUE 5/5, LLE4/5, R hip 3-Neuro/DIRECTOR OPERATING ROOM: alert, oriented X 3, CNII-XII intact ResultsFindings/Data:Laboratory Tests 09/14 1629 1105 0543 Chemistry POC Glucose (70 [...] (1.80 - 2.40 mg/dL) 1.86 Laboratory Tests 09/13 09/12 09/12 0455 1115 0420 Hematology WBC (4.5 - [...] (14.0 - 32.0 %) 10.4 L 15.0 Lenoir % (Auto) (4.8 - 9.0 %) 3.5 L 7.9 Eos % (Auto) (0.3 - 3.7 %) 0.0 L 3.8 H Baso % (Auto) (0.0 - 2.0 %) 0.1 0.3 Neut # (Auto) (2.0 - 7.6 x10 3/uL) 8.34 H 6.34 Lymph # (Auto) (1.0 - 3.8 x10 3/uL) 1.02 1.31 Lenoir # (Auto) (0.1 - 0.8 x10 3/uL) 0.34 0.69 Eos # (Auto) (0.0 - 0.2 x10 3/uL) 0.00 0.33 H Baso # (Auto) (0.0 - 0.2 x10 3/uL) 0.01 0.03 Abs Immat Gran (auto) (0.00 - 0.03 x10 3/uL) 0.07 H 0.06 H Add Manual Diff NO NO Immature Gran % (0.0 - 2.0 %) 0.7 0.7 Nucleated RBC % (0 - 0 %) 0.0 0.0 Nucleated RBCs # (Man) (0.0 - 0.1 x10 3/uL) 0.00 0.00 Eos Smear Total Cells NONE SEEN Laboratory Tests 09/110 1445 Toxicology Random Vancomycin (mcg/mL) 16.7 18.3 Microbiology Date/Time Procedure - Status Source Growth 09/13 0455 MRSA DNA Surveillance Screen - COMP NASAL Recent Impressions:RADIOLOGY - XR CHEST 1 V 09/12 1418 Report Impression - Status: SIGNED Entered: 09/12/20222028 IMPRESSION: Worsening opacities in the right mid and lower lung reyes. Mildly improved left retrocardiac opacities. Impression By: [email or web address] - Abel Browne M.D. Diagnosis, Assessment PlanFree Text A P:Assessment:Severe Gas gangrene right foot and right ankle associated with osteomyelitis andnecrotizing fasciitisS/p surgical debridement and washout4/6: S/p right BKA-Dr. LeroySignificant impairment in self-care, ADLs and functional mobilityImpaired mobility and gaitAcute postoperative pain right BKADiabetic polyneuropathyDKA, DM 2, poorly controlled, A1c greater than 14PADMRSA bacteremia/sepsis-treated on acuteAKISevere hyponatremia-resolvedHTNAcute on chronic anemia requiring multiple transfusions, possible GI bleedLeft calf hematomaEdema and clinical arthritis left ankleEarly decubitus to left heel/DTI dorsal left midfootProstatic abscess 08/26: S/p transrectal ultrasound aspiration of abscess and transurethral resection of prostate and unroofing of abscessEcho: EF 55-59%, grade 1 diastolic dysfunction09/02: JIMENA negative for vegetationMRSA OF NARES09/08:s/p EGD and colonoscopy. EGD showed mild gastritis. Colonoscopy showed rectal polyp that was resected by snare (tubular adenoma)-repeat colonoscopy in 5 years Plan:-PLOF: Independent with transfers and gait-Amputee rehab program-Continue PT and OT-15/12 rehabilitation nursing care.-Case management for safe discharge planning.-Decubitus prevention-Early decubitus to left heel/DTI dorsal left midfoot-zinc oxide to the foot, foam, offloading, podiatry managing-DVT prophylaxis-subcutaneous heparin-Strict fall and safety precautions-Work on bed mobility, transfer training, ADLs, pre-gait and gait exercises-Increase endurance and strength-Monitor pain with therapies-OOB to chair-Monitor p.o. intake and nutrition, albumin 1.3, prealbumin less than 5, dietaryconsultation, protein supplements to promote eypuydk-Qcuwmgsb-V1u 14, tight glycemia control- endocrine on board, insulin adjustments-Endocrinology, ID, podiatry, cardiology, IM consulted-Pain management adjusting pain medications-Anemia, patient required multiple units of PRBCs on acute, FOBT positive-IV Protonix-consult GI-serial H H-no evidence of gross bleeding-discussed with Dr. TrinidadPcaxyqio-Ighwixykdkpq-ccjrhjfnr uaslibmd-YOM-svkgew-CW Senokot and MiraLAX, DSP-Right XQE-ipfooqt-waqtbyup resolved, dressings changed wzpuu-hvxpmbg-cgwudnxb IJR-VRTA-KSKH OF NARES on Bactroban protocol-LLE edema-venous Doppler with complex heterogeneous hypoechoic fluid collectionin the left calf region measuring 8.4, 2.8, 2.5 cm suggestive of hematoma. On low-dose Lasix. Joan wrap LLE-LE edema could be related to hypoalbuminemia leading to third spacing-edema improving-Generalized edema-some shortness of breath and abdominal distention-cardiology gave a dose of IV Lasix-monitor urine output, daily weights-SOB resolved-09/05-venous Doppler of LLE-negative for DVT-Joan wrap dressing and rarueipeu-Szxabg-dybmajsmee 8.3, 7.7, transfused 2 units of PRBC on 09/05-09/08: s/p EGD and colonoscopy. EGD showed mild gastritis. Colonoscopy showed rectal polyp that was resected by snare. Anemia likely secondary to chronic kidney disease. Consult renal.-Pathology of polyp came back as tubular adenoma. recommend repeating colonoscopy in 5 years as per GI-Consider video capsule endoscopy as outpt if evidence of dropping H/H-Renal ultrasound negative-09/12/2022 laboratory this morning showed sodium 134, potassium 4.2, CO2 20, BUN31, creatinine 2.4 continues to worsen, discussed with ID, AIN is probably the etiology of the unexplained deterioration of his renal function, antibiotics to be adjusted by infectious disease, will give Solu-Medrol 125 mg IV daily for 3 days. Significant lower extremity edema, will start Lasix 20 mg p.o. twice daily-as per renal-Continue antibiotics per ID-Vanco discontinued due to evaded BUN/creatinine-Lasix discontinued.-Started on Solu-Medrol x3 doses-Noted LLE swelling (not new) and low albumin. may benefit from albumin infusion+ Lasix-CXR, BNP and Echo per cardiology-Advance therapies as tolerated-discussed treatment plan with patient and -Patient progressing with therapies, requires multiple rest breaks. PM RPlease see team note.Plan and goals discussed with the patient. I agree with the teams findingELOS- [09/19]DC-Home with -Home healthDME-bedside commode, sliding board, wheelchair, Total time 33 minutes greater than 50% of the time spent examining patient, discussing with patient about impaired renal function, medical issues, anemia, amputee rehab, plan of care, goals, therapies, progress, labs, medications. EMRand MAR is reviewed. All questions answeredRehab attestation:Face to face exam completed. Treatment plan discussed with patient. Meets continued stay criteria. Agree with interdisciplinary treatment plan. at 2016 RPT #:[id number] OF REPORTPRProgress [id number]:15:00G.[id number] able for patient [id number]:17:00 [facility]ACL 2022-09-14 06:12:00 [id number] [id number]/en82oq 2gyfC[id number]:12:00 [facility] ([facility])Pain Management Progress NoteREPORT#:[id number] REPORT STATUS: SignedDATE:09/14/22 TIME: 611 PATIENT: KARMA ROWLAND UNIT #: [id number]#: [id number] [address] AGE: 56 SEX: M ATTEND: Mj Vences [facility] AUTHOR: Charlie Quiroga RESEARCH MANUFACTURING OPERATOR * ALL edits or amendments must be made on the electronic/computer document * Charlie Quiroga 09/14/22 0612:SubjectiveChief complaint:Patient seen and examined. Chart/MAR reviewed. Patient is doing well so far today. Pain was tolerable last night. Continues to need breakthrough pain medication. Medications effective when taken. Patient being seen for Acute postoperative pain, right foot and anklegangrene, requiring BKA, Constipation Patient is still requiring medications to help with managing currentproblems. Patient is requiring IV narcotics to help manage breakthrough pain No fever/chills, chest pain, orthopnea, nausea/vomiting, pruritus, orhallucinations.14 point ROS undertaken unremarkable except as noted Objective GeneralVS/I O:Vital SignsDate Temp Pulse Resp B/P B/P Mean Pulse Ox VxO412/22-09/14 97.3-98.4 78-88 16-18 131-162/77-84 95.0-109.8 90-97 Last Documented: Result Date Time Pulse Ox 96 09/14 0038 B/P 161/84 09/14 37 B/P Mean 109.8 09/14 37 Temp 98.1 09/14 37 Pulse 83 09/14 37 Resp 16 09/14 37 O2 Delivery Room air 09/13 1632 O2 Flow Rate 2 09/08 1322 24 hour I O ending at 0700: 09/14 0700 09/13 1900 Intake Total 250 Output Total 900 Balance -650 Intake, Oral 250 Number 0 Incontinent Voids Number Voids 0 Output, Urine 900 PATIENT WEIGHT: Weight (lb): 165Weight (oz): 5.55Weight (kg): 75.000 Medications:Active Meds + DC'd Last 24 HrsInsulin Human Lispro (HUMALOG) 7 UNIT AC SUBQ Insulin Glargine (Semglee) 10 UNIT BEDTIME SUBQ Carvedilol (COREG) 25 MG C BK DIN PO Furosemide (LASIX) 20 MG BID 9A 5P PO (DC) Methylprednisolone Sodium Succinate (Solu-Medrol 125 MG Vial) 125 MG DAILY 1400 IV Daptomycin (CUBICIN 500MG) 500 MG Q24H IV Sodium Chloride (SODIUM CHLORIDE 0.9%) 50 MLMeropenem (MEROPENEM) 500 MG Q12H IV Sterile Water (WATER FOR INJECTION) 10 MLHydromorphone HCl (DILAUDID) 0.5 MG DAILY PRN PRN IV (DC) Gabapentin (NEURONTIN) 100 MG Q8HR PO Oxycodone/Acetaminophen (PERCOCET 5/325MG TAB) 2 TAB Q4H PRN PRN PO Ferric Sodium Gluconate Complex (FERRLECIT) 125 MG DAILY IV Sodium Chloride (SODIUM CHLORIDE 0.9%) 100 MLFolic Acid (FOLIC ACID) 2 MG DAILY PO Multivitamins (TAB-A-MOHAN) 1 TAB DAILY PO Carvedilol (COREG) 12.5 MG C BK DIN PO (DC) Insulin Glargine (Semglee) 5 UNIT BEDTIME SUBQ (DC) Furosemide (LASIX 20MG INJ) 20 MG BLOOD-DOSE BETWEEN IV (CKD) Sodium Chloride (SODIUM CHLORIDE) 10 ML ASDIR IV Pantoprazole Sodium (PROTONIX) 40 MG Q12HR IV Polyethylene Glycol (MIRALAX) 17 GM DAILY PO Sennosides (Senna Lax 8.6 MG TABLET) 8.6 MG DAILY PO Sodium Chloride (SODIUM CHLORIDE) 10 ML ASDIR PRN IV Amitriptyline HCl (ELAVIL) 25 MG BEDTIME PO Zinc Oxide (ZINC OXIDE 30 GM OINTMENT) 1 APPLIC DAILY TOPICAL Sterile Water (WATER FOR IRRIGATION) DRESSING CHANGE ASDIR PRN IRR Insulin Human Lispro (HUMALOG) 0 AC HS SUBQ Dextrose/Water (DEXTROSE 10% IN WATER) 125 ML ASDIR PRN IV (CKD) Dextrose/Water (DEXTROSE 10% IN WATER) 250 ML ASDIR PRN IV (CKD) Glucagon (GLUCAGON) 1 MG ASDIR PRN IM Lidocaine (LIDODERM) 1 PATCH DAILY TOPICAL Insulin Human Lispro (HUMALOG) 5 UNIT AC SUBQ (DC) Heparin Sodium (HEPARIN 5000 UNITS/ML) 5,000 UNIT Q8HR SUBQ Acetaminophen (TYLENOL) 650 MG Q6H PRN PRN PO Bisacodyl (DULCOLAX) 10 MG DAILY PRN PRN RECTAL Docusate Sodium (COLACE) 100 MG Q12H PRN PRN PO Hydralazine HCl (APRESOLINE) 10 MG Q6H PRN PRN IV Ondansetron HCl (ZOFRAN) 4 MG Q6H PRN PRN IV Physical ExamGeneral appearance: alert, awake, oriented, mental status normalHead/eyes: atraumatic, EOMI, normocephalic, normal conjunctiva/sclera, PERRLAENT: normal ear left, normal ear right, normal nose, normal pharynx, moist mucosal membranesNeck: full range of motion, no lymphadenopathy, supple/no meningismusCardiovascular: regular rate rhythmRespiratory: clear to auscultation, no distress, aerating wellAbdomen: soft, non-tender, no distention, active bowel sounds in all quarants. Abdomen quadrantsLLQ normal bowel sounds, LUQ normal bowel sounds, RLQ normal bowel sounds, RUQ normal bowel soundsExtremities: moves all, no edema, pedal pulsesNeuro/DIRECTOR OPERATING ROOM: 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, no sensory deficits, CNII-XII grossly intact Considered stroke alert: noSkin: dry, normal color, normal turgor, no rashPsychiatry: normal affect ResultsFindings/data:Laboratory Tests: 09/14 09/13 09/13 09/13 0526 1937 1629 1105 Chemistry POC Glucose (70 - 110 MG/DL) 334 H 248 H 130 H 307 H Diagnosis, Assessment PlanFree text A P:A/P:Patient is a 56 year old male who presents with: Recent prostate abscess-Status post TURP with unroofing of abscess-IV antibiotics with vancomycin until 09-24-2022 Acute postoperative pain, right foot and ankle gangrene, requiring BKA-Patient is at risk for further amputations or loss of limb due to comorbid conditions-Status post right BKA 08/28/2022-DC Sheldon 10/325 1 tablet p.o. every 4 hours as needed pain scale 4 10-DC Dilaudid 0.5 mg IV daily as needed pain scale 7 10, second line therapy (09/13)-Tylenol 650 mg p.o. every 6 hours as needed pain scale 1 3-Percocet 10/325mg every 4 hours as needed, pain scale 4-10 (09/10)-Lidoderm patch to left ankle daily-IV antibiotics with vancomycin until 09-24-2022-Local wound care-manageable Diabetic peripheral neuropathy-amitriptyline 25mg PO QHS-Gabapentin 100mg every 8 hours (09/10)-manageable Hypertension-We will monitor hypertension and tachycardia due to pain, and hypotension as well as bradycardia secondary over sedation with narcotics-Hydralazine as needed Elevated LFTs-08/20/22-AST 51, ALT 22-09/03/2022-AST 15, ALT 7-Patient will require close monitoring since he is using narcotics with Tylenol Impaired functional mobility, balance, gait, and endurance-PT/OT Antalgic/Impaired gait-PT/OT-Improve strength, endurance, self-care, gait, balance, ADLs-Fall precautions per unit protocol-Pain medications as outlined above Constipation-We will monitor while utilizing opioid narcotic medications.-Adequate fluid intake also discussed.-Colace 100 mg p.o. twice daily as needed-Dulcolax 10 mg rectally daily as needed-Senna lax 8.6mg daily-Miralax 17gm daily-manageable Disposition: Past Medical History: Prostate abscess, right foot foot and ankle gangrene, diabetes, hypertension, hyperlipidemiaPast Surgical History: TURP, right BKAFamily History: NoncontributorySocial History: Denies tobacco, alcohol, or drug useAllergies: NKDA Patient has failed conservative medical therapy.Patient will require monitoring while utilize narcotic medications for any adverse effects, and will adjust as neededPlan of care discussed with patient and nurseAll diagnostics of last 24 hours been reviewed. Risks versus benefits of opioid medications were reviewed to include, but not limited to respiratory depression, accidental overdose, altered mental status, sudden , constipation which could result in bowel obstruction, seizures, withdrawal, dependency addiction, risk for falls. Case discussed with Dr Ng whom agrees. Thank you for the consultation. [place] DISABILITY HEARING OFFICER:-database searched, no information found Kingsley Ng 10/04/22 1309:Attestations Physician AttestationAgree w/findings plan:The patient was seen and examined by Charlie Quiroga. I personally developed thecare plan, which was continued by the mid-level provider. I was immediately available. at 0741 at 1318 RPT #:[id number] OF REPORTPRProgress [id number]:12:00G.[id number] able for patient [id number]:41:22 [facility] 2022-09-13 16:50:00 [id number] BrUxPj1PQtUVWT+KMVQGYXdL+yY2263-16-12O32:50:00 [facility])Endocrinology Progress NoteREPORT#:[id number] REPORT STATUS: SignedDATE:09/13/22 TIME: 1650 PATIENT: KARMA ROWLAND UNIT #: [id number]#: [id number] [address] [birth year] AGE: 56 SEX: M ATTEND: Mj Vences [facility] AUTHOR: Braxton Chapin MD * ALL edits or amendments must be made on the electronic/computer document * SubjectivePatient reports: no complaints Objective GeneralVS:Last Documented: Result Date Time Pulse Ox 95 09/13 1632 B/P 131/77 09/13 1632 B/P Mean 95.0 09/13 1632 O2 Delivery Room air 09/13 1632 Temp 36.4 09/13 1632 Pulse 78 09/13 1632 Resp 18 09/13 1632 O2 Flow Rate 2 09/08 1322 PATIENT WEIGHT: Weight (lb): 165Weight (oz): 5.55Weight (kg): 75.000 Medications:Active Meds + DC'd Last 24 HrsCarvedilol (COREG) 25 MG C BK DIN PO Furosemide (LASIX) 20 MG BID 9A 5P PO (DC) Methylprednisolone Sodium Succinate (Solu-Medrol 125 MG Vial) 125 MG DAILY 1400 IV Daptomycin (CUBICIN 500MG) 500 MG Q24H IV Sodium Chloride (SODIUM CHLORIDE 0.9%) 50 MLMeropenem (MEROPENEM) 500 MG Q12H IV Sterile Water (WATER FOR INJECTION) 10 MLHydromorphone HCl (DILAUDID) 0.5 MG DAILY PRN PRN IV (DC) Gabapentin (NEURONTIN) 100 MG Q8HR PO Oxycodone/Acetaminophen (PERCOCET 5/325MG TAB) 2 TAB Q4H PRN PRN PO Ferric Sodium Gluconate Complex (FERRLECIT) 125 MG DAILY IV Sodium Chloride (SODIUM CHLORIDE 0.9%) 100 MLFolic Acid (FOLIC ACID) 2 MG DAILY PO Multivitamins (TAB-A-MOHAN) 1 TAB DAILY PO Carvedilol (COREG) 12.5 MG C BK DIN PO (DC) Insulin Glargine (Semglee) 5 UNIT BEDTIME SUBQ Furosemide (LASIX 20MG INJ) 20 MG BLOOD-DOSE BETWEEN IV (CKD) Sodium Chloride (SODIUM CHLORIDE) 10 ML ASDIR IV Pantoprazole Sodium (PROTONIX) 40 MG Q12HR IV Polyethylene Glycol (MIRALAX) 17 GM DAILY PO Sennosides (Senna Lax 8.6 MG TABLET) 8.6 MG DAILY PO Sodium Chloride (SODIUM CHLORIDE) 10 ML ASDIR PRN IV Amitriptyline HCl (ELAVIL) 25 MG BEDTIME PO Zinc Oxide (ZINC OXIDE 30 GM OINTMENT) 1 APPLIC DAILY TOPICAL Sterile Water (WATER FOR IRRIGATION) DRESSING CHANGE ASDIR PRN IRR Insulin Human Lispro (HUMALOG) 0 AC HS SUBQ Dextrose/Water (DEXTROSE 10% IN WATER) 125 ML ASDIR PRN IV (CKD) Dextrose/Water (DEXTROSE 10% IN WATER) 250 ML ASDIR PRN IV (CKD) Glucagon (GLUCAGON) 1 MG ASDIR PRN IM Lidocaine (LIDODERM) 1 PATCH DAILY TOPICAL Insulin Human Lispro (HUMALOG) 5 UNIT AC SUBQ Heparin Sodium (HEPARIN 5000 UNITS/ML) 5,000 UNIT Q8HR SUBQ Acetaminophen (TYLENOL) 650 MG Q6H PRN PRN PO Bisacodyl (DULCOLAX) 10 MG DAILY PRN PRN RECTAL Docusate Sodium (COLACE) 100 MG Q12H PRN PRN PO Hydralazine HCl (APRESOLINE) 10 MG Q6H PRN PRN IV Ondansetron HCl (ZOFRAN) 4 MG Q6H PRN PRN IV Physical ExamGeneral appearance: alert, awake Diagnosis, Assessment PlanHospital course to date:Laboratory Tests: 09/13 09/13 09/13 09/12 1105 0589 0459 2016 Chemistry Sodium (134 - 147 mEq/L) [...] (Auto) (14.0 - 32.0 %) 10.4 L Lenoir % (Auto) (4.8 - 9.0 %) 3.5 L Eos % (Auto) (0.3 - 3.7 %) 0.0 L Baso % (Auto) (0.0 - 2.0 %) 0.1 Neut # (Auto) (2.0 - 7.6 x10 3/uL) 8.34 H Lymph # (Auto) (1.0 - 3.8 x10 3/uL) 1.02 Lenoir # (Auto) (0.1 - 0.8 x10 3/uL) 0.34 Eos # (Auto) (0.0 - 0.2 x10 3/uL) 0.00 Baso # (Auto) (0.0 - 0.2 x10 3/uL) 0.01 Abs Immat Gran (auto) (0.00 - 0.03 x10 3/uL) 0.07 H Add Manual Diff NO Immature Gran % (0.0 - 2.0 %) 0.7 Nucleated RBC % (0 - 0 %) 0.0 Nucleated RBCs # (Man) (0.0 - 0.1 x10 3/uL) 0.00 Microbiology: Date/Time Procedure - Status Source Growth [...] % (Auto) (14.0 - 32.0 %) 15.0 Lenoir % (Auto) (4.8 - 9.0 %) 7.9 Eos % (Auto) (0.3 - 3.7 %) 3.8 H Baso % (Auto) (0.0 - 2.0 %) 0.3 Neut # (Auto) (2.0 - 7.6 x10 3/uL) 6.34 Lymph # (Auto) (1.0 - 3.8 x10 3/uL) 1.31 Lenoir # (Auto) (0.1 - 0.8 x10 3/uL) 0.69 Eos # (Auto) (0.0 - 0.2 x10 3/uL) 0.33 H Baso # (Auto) (0.0 - 0.2 x10 3/uL) 0.03 Abs Immat Gran (auto) (0.00 - 0.03 x10 3/uL) 0.06 H Add Manual Diff NO Immature Gran % (0.0 - 2.0 %) 0.7 Nucleated RBC % (0 - 0 %) 0.0 Nucleated RBCs # (Man) (0.0 - 0.1 x10 3/uL) 0.00 Toxicology Random Vancomycin (mcg/mL) 16.7 Laboratory Tests: 09/11 09/11 09/11 09/11 09/11 1532 1445 1114 0541 0445Chemistry Sodium (134 - 147 mEq/L) 134 Potassium [...] MG/DL) 4.7 Magnesium (1.80 - 2.40 mg/dL) 1.90Hematology WBC (4.5 - 11.0 x10 3/uL) 7.9 [...] % (Auto) (14.0 - 32.0 %) 16.1 Lenoir % (Auto) (4.8 - 9.0 %) 9.1 H Eos % (Auto) (0.3 - 3.7 %) 5.6 H Baso % (Auto) (0.0 - 2.0 %) 0.5 Neut # (Auto) (2.0 - 7.6 x10 3/uL) 5.35 Lymph # (Auto) (1.0 - 3.8 x10 3/uL) 1.27 Lenoir # (Auto) (0.1 - 0.8 x10 3/uL) 0.72 Eos # (Auto) (0.0 - 0.2 x10 3/uL) 0.44 H Baso # (Auto) (0.0 - 0.2 x10 3/uL) 0.04 Abs Immat Gran (auto) (0.00 - 0.03 0.06 Hx10 3/uL) Add Manual Diff NO Immature Gran % (0.0 - 2.0 %) 0.8 Nucleated RBC % (0 - 0 %) 0.0 Nucleated RBCs # (Man) (0.0 - 0.1 0.00x10 3/uL)Toxicology Random Vancomycin (mcg/mL) 18.3 09/10 1851 Chemistry POC Glucose (70 - 110 MG/DL) 97 Laboratory Tests: 09/10 09/10 09/10 09/10 09/10 1715 1625 1430 1007 0545Chemistry Sodium (134 - 147 mEq/L) 135 Potassium [...] MG/DL) 4.6 Magnesium (1.80 - 2.40 mg/dL) 1.89Hematology WBC (4.5 - 11.0 x10 3/uL) 8.6 [...] % (Auto) (14.0 - 32.0 %) 15.5 Lenoir % (Auto) (4.8 - 9.0 %) 8.5 Eos % (Auto) (0.3 - 3.7 %) 5.5 H Baso % (Auto) (0.0 - 2.0 %) 0.4 Neut # (Auto) (2.0 - 7.6 x10 3/uL) 5.94 Lymph # (Auto) (1.0 - 3.8 x10 3/uL) 1.33 Lenoir # (Auto) (0.1 - 0.8 x10 3/uL) 0.73 Eos # (Auto) (0.0 - 0.2 x10 3/uL) 0.47 H Baso # (Auto) (0.0 - 0.2 x10 3/uL) 0.03 Abs Immat Gran (auto) (0.00 - 0.03 0.06 Hx10 3/uL) Add Manual Diff NO Immature Gran % (0.0 - 2.0 %) 0.7 Nucleated RBC % (0 - 0 %) 0.0 Nucleated RBCs # (Man) (0.0 - 0.1 0.00x10 3/uL)Toxicology Random Vancomycin (mcg/mL) 15.7 09/10 09/09 0541 1911 Chemistry POC Glucose (70 - 110 MG/DL) 154 H 102 Recent Impressions:ULTRASOUND - US RETROPERITONEAL COM 09/10 1311 Report Impression - Status: SIGNED Entered: 09/10/2022 1503 IMPRESSION: No acute findings. Impression By: Yared Mares M.D. Laboratory Tests: 09/09 09/09 09/09 09/09 09/09 [...] % (Auto) (14.0 - 32.0 %) 16.1 Lenoir % (Auto) (4.8 - 9.0 %) 9.2 H Eos % (Auto) (0.3 - 3.7 %) 4.7 H Baso % (Auto) (0.0 - 2.0 %) 0.4 Neut # (Auto) (2.0 - 7.6 x10 3/uL) 6.38 Lymph # (Auto) (1.0 - 3.8 x10 3/uL) 1.49 Lenoir # (Auto) (0.1 - 0.8 x10 3/uL) 0.85 H Eos # (Auto) (0.0 - 0.2 x10 3/uL) 0.43 H Baso # (Auto) (0.0 - 0.2 x10 3/uL) 0.04 Abs Immat Gran (auto) (0.00 - 0.03 x10 3/uL) 0.05 H Add Manual Diff NO Immature Gran % (0.0 - 2.0 %) 0.5 Nucleated RBC % (0 - 0 %) 0.0 Nucleated RBCs # (Man) (0.0 - 0.1 x10 3/uL) 0.00 Retic Count (auto) (0.3 - 2.3 [...] (Auto) (14.0 - 32.0 %) 13.7 L [place] % (Auto) (4.8 - 9.0 %) 7.2 Eos % (Auto) (0.3 - 3.7 %) 4.8 H Baso % (Auto) (0.0 - 2.0 %) 0.3 Neut # (Auto) (2.0 - 7.6 x10 3/uL) 6.64 Lymph # (Auto) (1.0 - 3.8 x10 3/uL) 1.24 [place] # (Auto) (0.1 - 0.8 x10 3/uL) 0.65 Eos # (Auto) (0.0 - 0.2 x10 3/uL) 0.43 H Baso # (Auto) (0.0 - 0.2 x10 3/uL) 0.03 Abs Immat Gran (auto) (0.00 - 0.03 x10 3/uL) 0.06 H Add Manual Diff NO Immature Gran % (0.0 - 2.0 %) 0.7 Nucleated RBC % (0 - 0 %) 0.0 Nucleated RBCs # (Man) (0.0 - 0.1 x10 3/uL) 0.00 Laboratory Tests: 09/07 09/07 09/07 09/07 09/07 1554 [id number] Chemistry Creatinine (0.6 - 1.3 mg/dL) 1.4 H POC Glucose (70 - 110 MG/DL) 112 H 51 L 42 L 135 H Hematology Hgb (12.5 - 16.9 [...] 173 Occult Blood - COMP STOOL Recent Impressions:RADIOLOGY - XR ABDOMEN 1V (KUB) 09/04 1648 Report Impression - Status: SIGNED Entered: 09/04/2022 1757 IMPRESSION: Benign appearance of the abdomen.Impression By: [email or web address] - Roger Parra M.D.ULTRASOUND - DUP VEIN UNI/LTD 09/05 1146 Report Impression - Status: SIGNED Entered: 09/05/2022 1333 IMPRESSION: 1. No evidence of deep vein thrombosis. 2. Complex heterogeneous hypoechoic fluid collection in the left calf region measuring 8.4 x 2.8 x 2.5 cm; there is no internal vascularity or peripheral hyperemia. May represent a hematoma.Impression By: [email or web address] - Mert Ga M.D.RADIOLOGY - XR CHEST 1 V 09/05 1432 Report Impression - Status: SIGNED Entered: 09/05/2022 1515 IMPRESSION: Minimal bibasilar pulmonary opacitiesImpression By: TipTDO Cr Mares M.D. Laboratory Tests: 09/04 09/04 09/04 09/04 09/04 [...] COLB STOOL 1.Diabetes mellitus type 2 uncontrolled complications.2. Status post right BKA3. Status post gangrene of the right foot.4. Sepsis5. Prostate abscess.6. AnemiaBlood sugar 241-307 mg/dL.H/H 8.11/17.Adjust insulin dose.PT and OT. at 1651 RPT #:[id number] OF REPORTPRProgress oxfx0404-21-27Z79:50:00G.[id number] able for patient gwwoUTLARFQCBTGZPN9120-03-37B02:51:40 [facility] 2022-09-13 16:00:00 [id number] BeJk/8shMJ67Pjs56XvzPda058V+U QSB5ivupD4ddDIczlUNTcnDKkJF8433-47-28F72:00:00 [facility] ([facility])Podiatry Progress NoteREPORT#:[id number] REPORT STATUS: SignedDATE:09/13/22 TIME: 1600 PATIENT: KARMA ROWLAND UNIT #: [id number]#: [id number] [address] AGE: 56 SEX: M ATTEND: Mj Vences MDADM AUTHOR: Liam Pedersen DPM * ALL edits or amendments must be made on the electronic/computer document * SubjectiveChief complaint:left heel ulcer. left ankle painPatient reports: no confusion, no diarrhea, no dizziness, no fatigue, no heartburn, no nausea Objective GeneralVS:Last Documented: Result Date Time Pulse Ox 90 09/13 1108 B/P 148/78 09/13 1108 B/P Mean 101.3 09/13 1108 O2 Delivery Room air 09/13 1108 Temp 36.3 09/13 1108 Pulse 88 09/13 1108 Resp 18 09/13 1108 O2 Flow Rate 2 09/08 1322 PATIENT WEIGHT: Weight (lb): 165Weight (oz): 5.55Weight (kg): 75.000 Medications:Active Meds + DC'd Last 24 HrsCarvedilol (COREG) 25 MG C BK DIN PO Furosemide (LASIX) 20 MG BID 9A 5P PO (DC) Methylprednisolone Sodium Succinate (Solu-Medrol 125 MG Vial) 125 MG DAILY 1400 IV Daptomycin (CUBICIN 500MG) 500 MG Q24H IV Sodium Chloride (SODIUM CHLORIDE 0.9%) 50 MLMeropenem (MEROPENEM) 500 MG Q12H IV Sterile Water (WATER FOR INJECTION) 10 MLHydromorphone HCl (DILAUDID) 0.5 MG DAILY PRN PRN IV (DC) Gabapentin (NEURONTIN) 100 MG Q8HR PO Oxycodone/Acetaminophen (PERCOCET 5/325MG TAB) 2 TAB Q4H PRN PRN PO Ferric Sodium Gluconate Complex (FERRLECIT) 125 MG DAILY IV Sodium Chloride (SODIUM CHLORIDE 0.9%) 100 MLFolic Acid (FOLIC ACID) 2 MG DAILY PO Multivitamins (TAB-A-MOHAN) 1 TAB DAILY PO Carvedilol (COREG) 12.5 MG C BK DIN PO (DC) Insulin Glargine (Semglee) 5 UNIT BEDTIME SUBQ Furosemide (LASIX 20MG INJ) 20 MG BLOOD-DOSE BETWEEN IV (CKD) Sodium Chloride (SODIUM CHLORIDE) 10 ML ASDIR IV Pantoprazole Sodium (PROTONIX) 40 MG Q12HR IV Polyethylene Glycol (MIRALAX) 17 GM DAILY PO Sennosides (Senna Lax 8.6 MG TABLET) 8.6 MG DAILY PO Sodium Chloride (SODIUM CHLORIDE) 10 ML ASDIR PRN IV Amitriptyline HCl (ELAVIL) 25 MG BEDTIME PO Zinc Oxide (ZINC OXIDE 30 GM OINTMENT) 1 APPLIC DAILY TOPICAL Sterile Water (WATER FOR IRRIGATION) DRESSING CHANGE ASDIR PRN IRR Insulin Human Lispro (HUMALOG) 0 AC HS SUBQ Dextrose/Water (DEXTROSE 10% IN WATER) 125 ML ASDIR PRN IV (CKD) Dextrose/Water (DEXTROSE 10% IN WATER) 250 ML ASDIR PRN IV (CKD) Glucagon (GLUCAGON) 1 MG ASDIR PRN IM Lidocaine (LIDODERM) 1 PATCH DAILY TOPICAL Insulin Human Lispro (HUMALOG) 5 UNIT AC SUBQ Heparin Sodium (HEPARIN 5000 UNITS/ML) 5,000 UNIT Q8HR SUBQ Acetaminophen (TYLENOL) 650 MG Q6H PRN PRN PO Bisacodyl (DULCOLAX) 10 MG DAILY PRN PRN RECTAL Docusate Sodium (COLACE) 100 MG Q12H PRN PRN PO Hydralazine HCl (APRESOLINE) 10 MG Q6H PRN PRN IV Ondansetron HCl (ZOFRAN) 4 MG Q6H PRN PRN IV I O:24 hour I O ending at 0700: 09/13 0700 09/12 1900 Intake Total 720 Output Total 1000 1350 Balance -1000 -630 Intake, Oral 720 Number 2 Bowel Movements Number 0 0 Incontinent Voids Number Voids 0 0 Output, Urine 1000 1350 Dietitian nutrition assessmentThe data set between the solid lines has been imported from the dietitian's assessment. BMI Calculated: 26.7Nutrition related diagnosis: Nutrition diagnosis details: Nutrition problem: Altered nutrition labsNutrition etiology: DMNutrition signs and symptoms: HYPER/HYPOGLYCEMIA, A1C >14Nutrition prescription: CONTINUE DM DIETDietitian name: You Palmer, DIETAssessment completed: 09/09/22 Physical ExamGeneral appearance: alert, awake, orientedWound/incision: Location:left foot Site condition: dp/pt 2/4 left. light touch decreased left foot. ulcer starting at posterior left heel. eccymosis noted. early likely stage 1. left ankle has edema. pain with aggressive ROM left ankle., dorsal left midfoot is starting to have tissue injuryLE vascular pulse assess:2+ L posterior tibialis, 2+ L dorsalis pedis Considered stroke alert: noUlcer: Location: DTI dorsal left midfoot Diagnosis, Assessment PlanFree Text A P:DM with neuropathyearly decub ulcer left heelOA/edema left ankleearly ulcer/DTI dorsal left midfoot zinc oxide to foot and heelfoam to heelon IV abxon PO gabapentinoffloading bootace wraps to ankle, only when OOB with therapy. zinc oxide applied to dorsal left midfoot early ulcerConsultants: cardiology, endocrinology, hospitalist, infectious disease, podiatry at 1601 RPT #:[id number] OF REPORTPRProgress hltt2490-75-49Q18:00:00G.[id number] able for patient tdhyRUISHYKTASQTVA5746-47-03E19:01:39 [facility] 2022-09-13 15:53:00 [id number] 7HpnLCJ39lazLxfKi5udVHk/O/Izx 3+uYrGh83xRxaOMm2D7i/yeiAKm7067-14-19O72:53:00 [facility] ([facility])Nephrology Progress NoteREPORT#:[id number] REPORT STATUS: SignedDATE:09/13/22 TIME: 1553 PATIENT: KARMA ROWLAND UNIT #: [id number]#: [id number] [address] [birth year] AGE: 56 SEX: M ATTEND: Mj Vences [facility] AUTHOR: Elodia Neri MD * ALL edits or amendments must be made on the electronic/computer document * SubjectiveChief complaint:Infected footHPI:Patient seen and evaluated on 09/09/2022, note started, records reviewed and orders placed on 09/08/2022, 56-year-old male with history of diabetes mellitus type 2, hypertension and peripheral vascular disease who was initially admitted to acute care with altered mental status and right foot infection/gangrene, 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 Patient had persistent anemia requiring blood transfusion. His fecal occult blood was positive and his creatinine was 1.2 and increased to 1.4 today, laboratories today showed hemoglobin 8.5, platelet 231, blood count 9.1, sodium 135, potassium 4.6, CO2 22, BUN 22, creatinine 1.4. Renal consult was requested for evaluation management of elevated BUN and creatinine and if his decreased GFR iscontributing to his anemia. Review of SystemsROS comments:Constitutional:Reports: fatigue. Denies: chills, fever. Skin:Reports: swelling. Denies: rash. Allergy/Immun:Denies: hives, itching. Eyes:Denies: redness, discharge. ENT:Denies: ear drainage, ear ringing. Respiratory:Denies: hemoptysis, SOB. Cardiovascular:Denies: chest pain. Objective GeneralVS/I O:Vital Signs: Date Time Temp Pulse Resp B/P B/P Pulse O2 O2 Flow FiO2 Mean Ox Delivery Rate 09/13 1108 [...] Urine 1000 1350 PATIENT WEIGHT: Weight (lb): 165Weight (oz): 5.55Weight (kg): 75.000 MedicationsActive Meds + DC'd Last 24 HrsCarvedilol (COREG) 25 MG C BK DIN PO Furosemide (LASIX) 20 MG BID 9A 5P PO Methylprednisolone Sodium Succinate (Solu-Medrol 125 MG Vial) 125 MG DAILY 1400 IV Daptomycin (CUBICIN 500MG) 500 MG Q24H IV Sodium Chloride (SODIUM CHLORIDE 0.9%) 50 MLMeropenem (MEROPENEM) 500 MG Q12H IV Sterile Water (WATER FOR INJECTION) 10 MLHydromorphone HCl (DILAUDID) 0.5 MG DAILY PRN PRN IV (DC) Gabapentin (NEURONTIN) 100 MG Q8HR PO Oxycodone/Acetaminophen (PERCOCET 5/325MG TAB) 2 TAB Q4H PRN PRN PO Ferric Sodium Gluconate Complex (FERRLECIT) 125 MG DAILY IV Sodium Chloride (SODIUM CHLORIDE 0.9%) 100 MLFolic Acid (FOLIC ACID) 2 MG DAILY PO Multivitamins (TAB-A-MOHAN) 1 TAB DAILY PO Carvedilol (COREG) 12.5 MG C BK DIN PO (DC) Insulin Glargine (Semglee) 5 UNIT BEDTIME SUBQ Furosemide (LASIX 20MG INJ) 20 MG BLOOD-DOSE BETWEEN IV (CKD) Sodium Chloride (SODIUM CHLORIDE) 10 ML ASDIR IV Pantoprazole Sodium (PROTONIX) 40 MG Q12HR IV Polyethylene Glycol (MIRALAX) 17 GM DAILY PO Sennosides (Senna Lax 8.6 MG TABLET) 8.6 MG DAILY PO Sodium Chloride (SODIUM CHLORIDE) 10 ML ASDIR PRN IV Amitriptyline HCl (ELAVIL) 25 MG BEDTIME PO Zinc Oxide (ZINC OXIDE 30 GM OINTMENT) 1 APPLIC DAILY TOPICAL Sterile Water (WATER FOR IRRIGATION) DRESSING CHANGE ASDIR PRN IRR Insulin Human Lispro (HUMALOG) 0 AC HS SUBQ Dextrose/Water (DEXTROSE 10% IN WATER) 125 ML ASDIR PRN IV (CKD) Dextrose/Water (DEXTROSE 10% IN WATER) 250 ML ASDIR PRN IV (CKD) Glucagon (GLUCAGON) 1 MG ASDIR PRN IM Lidocaine (LIDODERM) 1 PATCH DAILY TOPICAL Insulin Human Lispro (HUMALOG) 5 UNIT AC SUBQ Heparin Sodium (HEPARIN 5000 UNITS/ML) 5,000 UNIT Q8HR SUBQ Acetaminophen (TYLENOL) 650 MG Q6H PRN PRN PO Bisacodyl (DULCOLAX) 10 MG DAILY PRN PRN RECTAL Docusate Sodium (COLACE) 100 MG Q12H PRN PRN PO Hydralazine HCl (APRESOLINE) 10 MG Q6H PRN PRN IV Ondansetron HCl (ZOFRAN) 4 MG Q6H PRN PRN IV Physical ExamGeneral appearance: alert, awakeHead/eyes: atraumatic, normocephalicENT: normal noseNeck: non-tender, supple/no meningismusCardiovascular: normal heart sounds, no rubRespiratory: aerating well, symmetric expansionAbdomen: non-tender, softGenitourinary: no flank painExtremities: non-tender, no edemaMusculoskeletal: no CVA tenderness, no tendernessNeuro/DIRECTOR OPERATING ROOM: alert, 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 Considered stroke alert: noSkin: dry, intact Diagnosis, Assessment PlanFree Text A P:Patient seen and evaluated, discussed with care team, images and laboratories reviewed.Diabetes mellitus: Insulin: Monitor blood sugar closely and adjust medications as needed, followed by endocrinology.Hypertension: Blood pressure is not well controlled, increase Coreg to 12.5 mg p.o. twice daily: Monitor blood pressure closely and adjust medications as neededRight foot gangrene/infection status post right BKAAnemia: Status post EGD and colonoscopy which were negative for active GI bleeding, patient had work-up in July 2022 which showed very high B12, normal folate, very low iron saturation but very high ferritin which was likely relatedto his infection, likely patient is very iron deficient, will repeat lab and give IV iron if needed. We will check serum immunofixation.Acute kidney injury: We will check renal bladder ultrasound, check postvoid residual, check urine protein creatinine ratioHypomagnesemia: We will supplement09/10/2022 laboratory this morning showed sodium 135, potassium 4.2, CO2 21, BUN 25, creatinine 1.9 continues to worsen, etiology unclear, however his development some eosinophilia not sure if he is developing AIN, suggest changingcefepime to a different class of antibiotic if possible, will check renal bladder ultrasound09/11/2022 laboratory this morning showed sodium 134, potassium 4.3, CO2 22, BUN 26, creatinine 2 up from 1.9, hopefully creatinine is plateauing, renal ultrasound negative.09/12/2022 laboratory this morning showed sodium 134, potassium 4.2, CO2 20, BUN 31, creatinine 2.4 continues to worsen, discussed with ID, AIN is probably the etiology of the unexplained deterioration of his renal function, antibiotics to be adjusted by infectious disease, will give Solu-Medrol 125 mg IV daily for 3 days. Significant lower extremity edema, will start Lasix 20 mg p.o. twice daily.23: pt was seen and examined. Very thirsty. serum creatinine is worsening today. Vancomycin was stopped yesterday and Solu medrol was started. Mild hypovolemic hyponatremia. Will DC lasix and monitor his renal functions. BP is well controlled. Consultants: cardiology, endocrinology, hospitalist, infectious disease, podiatry at 1556 [facility] #:[id number] OF REPORTPRProgress kftg7106-93-16A44:53:00G.[id number] able for patient icnlJFBNROEAUKQVVE3090-39-66T03:57:08 [facility] 2022-09-13 15:16:00 [id number] uzdf13Rj+TQyITouj6PABBYZw26Vj NM5FU8pWUGLliaMS4vzZdClC67c9359-50-15V94:16:00 [facility] ([facility])Hospitalist Progress NoteREPORT#:[id number] REPORT STATUS: SignedDATE:09/13/22 TIME: 1516 PATIENT: KARMA ROWLAND UNIT #: [id number]#: [id number] [address] [birth year] AGE: 56 SEX: M ATTEND: Mj Vences [facility] AUTHOR: Meera Chavira DO * ALL edits or amendments must be made on the electronic/computer document * SubjectiveChief complaint:Pt notes his BS is high. Objective GeneralVS/I O:Vital Signs: Date Time Temp Pulse Resp B/P B/P Pulse O2 O2 Flow FiO2 Mean Ox Delivery Rate 09/13 1108 [...] Urine 1000 1350 PATIENT WEIGHT: Weight (lb): 165Weight (oz): 5.55Weight (kg): 75.000 Medications:Active Meds + DC'd Last 24 HrsCarvedilol (COREG) 25 MG C BK DIN PO Furosemide (LASIX) 20 MG BID 9A 5P PO Methylprednisolone Sodium Succinate (Solu-Medrol 125 MG Vial) 125 MG DAILY 1400 IV Daptomycin (CUBICIN 500MG) 500 MG Q24H IV Sodium Chloride (SODIUM CHLORIDE 0.9%) 50 MLMeropenem (MEROPENEM) 500 MG Q12H IV Sterile Water (WATER FOR INJECTION) 10 MLHydromorphone HCl (DILAUDID) 0.5 MG DAILY PRN PRN IV (DC) Gabapentin (NEURONTIN) 100 MG Q8HR PO Oxycodone/Acetaminophen (PERCOCET 5/325MG TAB) 2 TAB Q4H PRN PRN PO Ferric Sodium Gluconate Complex (FERRLECIT) 125 MG DAILY IV Sodium Chloride (SODIUM CHLORIDE 0.9%) 100 MLFolic Acid (FOLIC ACID) 2 MG DAILY PO Multivitamins (TAB-A-MOHAN) 1 TAB DAILY PO Carvedilol (COREG) 12.5 MG C BK DIN PO (DC) Insulin Glargine (Semglee) 5 UNIT BEDTIME SUBQ Furosemide (LASIX 20MG INJ) 20 MG BLOOD-DOSE BETWEEN IV (CKD) Sodium Chloride (SODIUM CHLORIDE) 10 ML ASDIR IV Pantoprazole Sodium (PROTONIX) 40 MG Q12HR IV Polyethylene Glycol (MIRALAX) 17 GM DAILY PO Sennosides (Senna Lax 8.6 MG TABLET) 8.6 MG DAILY PO Sodium Chloride (SODIUM CHLORIDE) 10 ML ASDIR PRN IV Amitriptyline HCl (ELAVIL) 25 MG BEDTIME PO Zinc Oxide (ZINC OXIDE 30 GM OINTMENT) 1 APPLIC DAILY TOPICAL Sterile Water (WATER FOR IRRIGATION) DRESSING CHANGE ASDIR PRN IRR Insulin Human Lispro (HUMALOG) 0 AC HS SUBQ Dextrose/Water (DEXTROSE 10% IN WATER) 125 ML ASDIR PRN IV (CKD) Dextrose/Water (DEXTROSE 10% IN WATER) 250 ML ASDIR PRN IV (CKD) Glucagon (GLUCAGON) 1 MG ASDIR PRN IM Lidocaine (LIDODERM) 1 PATCH DAILY TOPICAL Insulin Human Lispro (HUMALOG) 5 UNIT AC SUBQ Heparin Sodium (HEPARIN 5000 UNITS/ML) 5,000 UNIT Q8HR SUBQ Acetaminophen (TYLENOL) 650 MG Q6H PRN PRN PO Bisacodyl (DULCOLAX) 10 MG DAILY PRN PRN RECTAL Docusate Sodium (COLACE) 100 MG Q12H PRN PRN PO Hydralazine HCl (APRESOLINE) 10 MG Q6H PRN PRN IV Ondansetron HCl (ZOFRAN) 4 MG Q6H PRN PRN IV Physical ExamGeneral appearance: alert, awake, oriented, no acute distress, pleasant, conversational, mental status normal, no respiratory distressHead/Eyes: atraumatic, normocephalicENT: moist mucosal membranesNeck: no JVDCardiovascular: normal heart sounds, regular rate rhythmRespiratory: aerating well, clear to auscultationAbdomen: non-tender, normal bowel soundsGenitourinary: no bladder distentionExtremities: moves all, normal capillary refillMusculoskeletal: normal inspection, painless range of motionNeuro/DIRECTOR OPERATING ROOM: alert, oriented X 3, 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 Considered stroke alert: noSkin: dry, intactPsychiatry: normal affect, normal judgment/insight ResultsFindings/Data:Laboratory Tests 09/13 09/13 09/13 09/12 09/12 1105 0557 9 2016 160 Chemistry Sodium (134 - 147 mEq/L) 133 [...] (1.80 - 2.40 mg/dL) 1.92 Laboratory Tests 09/139 Hematology WBC (4.5 - 11.0 x10 3/uL) [...] (Auto) (14.0 - 32.0 %) 10.4 L [place] % (Auto) (4.8 - 9.0 %) 3.5 L Eos % (Auto) (0.3 - 3.7 %) 0.0 L Baso % (Auto) (0.0 - 2.0 %) 0.1 Neut # (Auto) (2.0 - 7.6 x10 3/uL) 8.34 H Lymph # (Auto) (1.0 - 3.8 x10 3/uL) 1.02 [place] # (Auto) (0.1 - 0.8 x10 3/uL) 0.34 Eos # (Auto) (0.0 - 0.2 x10 3/uL) 0.00 Baso # (Auto) (0.0 - 0.2 x10 3/uL) 0.01 Abs Immat Gran (auto) (0.00 - 0.03 x10 3/uL) 0.07 H Add Manual Diff NO Immature Gran % (0.0 - 2.0 %) 0.7 Nucleated RBC % (0 - 0 %) 0.0 Nucleated RBCs # (Man) (0.0 - 0.1 x10 3/uL) 0.00 Diagnosis, Assessment PlanConsultants: cardiology, endocrinology, hospitalist, infectious disease, podiatry Free Text DxA P NotesFree text DxA P notes:Gangrene of right foot s/p Below- knee amputation Prostate abscessMRSA bacteremiaHx of Diabetes, Diabetic neuropathyHTNAKI PLANS: Continue with PT/OT per primary Wound care as directedHepain PPXIV ironBP consistently high, increase Metoprolol to 25 mg BIDBS high today, yesterday was low. Likely due to steroids. IF BS remains elevated, will adjust insulin but likely related to short course of high dose steroids started by Nephrology for AINtrend renal function closely, check labs in ampain control at 1520 RPT #:[id number] OF REPORTPRProgress pwnm0435-40-84G39:16:00G.[id number] able for patient mewiLLAMQLVYPEGEPO9533-45-33H67:20:45 [facility] 2022-09-13 15:08:00 [id number] tpO/f3qkoCBPaaR9DnNacs6Dt/DUB XgOyk3xaQJaqjwVFw+8hFmknu8i4533-17-50R93:08:42384 2-[address] [place] [address] PATIENT NAME: KARMA ROWLAND ADMIT DATE: 09/02/22ACCOUNT NO: [id number] ROOM NO: G.537 AGE: 56 REPORT TYPE: eECHOCARDIOGRAM REPORT SEX: M ADMITTING PHYSICIAN:Mj Vences MD ATTENDING PHYSICIAN:Mj Vences MD *[place], [place] [address]Phone: Kqo: [phone] Limited Transthoracic Echocardiogram Patient: Consuelo Rowlandudy Date: 09/12/2022 BP: 136 / 76 Location: COCCLURN: [id number] : 1965 Age: 56 Height: 66 in / 167.6 cmAccession#: [id number] Gender: M Weight: 164.7 lb / 74.8 kgBMI/BSA: 26.6 kg/m 2 / 1.88 m 2 *Ordering Physician: * Rohit Benitez *Interpreting Physician: * Napoleon Parham MD*Fruit Or Nut Picker: * HÉCTOR Ivy Indications: EVAL LV SYSTOLIC/DIASTOLIC FUNCTION. Study data: Transthoracic echocardiogram, limited study. Procedure:Transthoracic echocardiography was performed. Images were obtained usinga Zwipe cardiac ultrasound machine. Image quality was good. Limited 2D andlimited spectral Doppler. Location: Bedside. Patient status:Inpatient. Patient room number: 537. Study status: Routine. Findings Left ventricle: The cavity size is normal. Wall thickness is increased.Systolic function is normal. The estimated ejection fraction is 55-60%.Wall motion is normal; there are no regional wall motion abnormalities.Left ventricular diastolic function parameters are indeterminate.Left atrium: The atrium is mildly dilated.PATIENT NAME: KARMA ROWLAND Right atrium: The atrium is normal in size.Aorta: Aortic root: The aortic root is normal in size.Aortic valve: The valve is structurally normal. The valve istrileaflet.Mitral valve: The valve is structurally normal. There is noevidence of stenosis. There is trivial regurgitation.Tricuspid valve: The valve is structurally normal. There is noregurgitation.Pericardium: There is no pericardial effusion.Systemic veins:Inferior vena cava: The vessel is normal in size. The respirophasicdiameter changes are in the normal range (= 50%). Measurements Left ventricle Value [...] 0.13 m/sec --------- Peak A 1.06 m/sec ---------PATIENT NAME: ROWLANDKARMA LYNNE Mean v, D 0.82 m/sec --------- VTI [...] increased. Systolic function is normal. The estimated ejection fraction is 55-60%. Wall motion is normal; there are no regional wall motion abnormalities. Left ventricular diastolic function parameters are indeterminate.2. Left atrium: The atrium is mildly dilated.3. Pericardium, extracardiac: There is no pericardial effusion. Prepared and electronically signed by Napoleon Parham MD09/13/2022 15:08 at 1508 PATIENT NAME: KARMA ROWLAND :08:0 0G.[id number] for patient ecftLHSSGOQDVGSSNR4714-87-92B20:09:03 [facility] 2022-09-13 07:46:00 [id number] BCqetuj5dyOYH8B1NeNQi6topIjFg iF+By3Ggo7ES5q0anomHHj/L5dq2902-78-99R59:46:00 [facility] ([facility])Pain Management Progress NoteREPORT#:[id number] REPORT STATUS: SignedDATE:09/13/22 TIME: 0746 PATIENT: KARMA ROWLAND UNIT #: [id number]#: [id number] [address] [birth year] AGE: 56 SEX: M ATTEND: Mj Vences [facility] AUTHOR: Charlie Quiroga NP * ALL edits or amendments must be made on the electronic/computer document * SubjectiveChief complaint:Patient seen and examined. Chart/MAR reviewed. Patient states pain still occurs, but the pain medications are appropriately relieving the pain and without side effects. Ready to stop IV pain medications. Patient being seen for Acute postoperative pain, right foot and anklegangrene, requiring BKA, Constipation Patient is still requiring medications to help with managing currentproblems. Patient is requiring IV narcotics to help manage breakthrough pain No fever/chills, chest pain, orthopnea, nausea/vomiting, pruritus, orhallucinations.14 point ROS undertaken unremarkable except as noted Objective GeneralVS/I O:Vital Signs Date Temp Pulse Resp B/P B/P Mean Pulse Ox FiO2 09/12-09/13 97.5-98.4 80-86 18 146-157/74-80 98.7-105.3 93-97 Last Documented: Result Date Time Pulse Ox 97 09/13 0658 B/P 146/79 09/13 0658 B/P Mean 101.3 09/13 0658 O2 Delivery Room air 09/13 06 Temp 98.4 09/13 0658 Pulse 80 09/13 0658 Resp 18 09/13 0658 O2 Flow Rate 2 09/08 1322 24 hour I O ending at 0700: 09/13 0700 09/12 1900 Intake Total 720 Output Total 1000 1350 Balance -1000 -630 Intake, Oral 720 Number 2 Bowel Movements Number 0 0 Incontinent Voids Number Voids 0 0 Output, Urine 1000 1350 PATIENT WEIGHT: Weight (lb): 165Weight (oz): 5.55Weight (kg): 75.000 Medications:Active Meds + DC'd Last 24 HrsFurosemide (LASIX) 20 MG BID 9A 5P PO Methylprednisolone Sodium Succinate (Solu-Medrol 125 MG Vial) 125 MG DAILY 1400 IV Daptomycin (CUBICIN 500MG) 500 MG Q24H IV Sodium Chloride (SODIUM CHLORIDE 0.9%) 50 MLMeropenem (MEROPENEM) 500 MG Q12H IV Sterile Water (WATER FOR INJECTION) 10 MLHydromorphone HCl (DILAUDID) 0.5 MG DAILY PRN PRN IV Cefepime HCl (MAXIPIME) 1 GM Q8H IV (DC) Sodium Chloride (SODIUM CHLORIDE) 10 MLGabapentin (NEURONTIN) 100 MG Q8HR PO Hydromorphone HCl (DILAUDID) 0.5 MG Q12H PRN PRN IV (DC) Oxycodone/Acetaminophen (PERCOCET 5/325MG TAB) 2 TAB Q4H PRN PRN PO Ferric Sodium Gluconate Complex (FERRLECIT) 125 MG DAILY IV Sodium Chloride (SODIUM CHLORIDE 0.9%) 100 MLFolic Acid (FOLIC ACID) 2 MG DAILY PO Multivitamins (TAB-A-MOHAN) 1 TAB DAILY PO Carvedilol (COREG) 12.5 MG C BK DIN PO Insulin Glargine (Semglee) 5 UNIT BEDTIME SUBQ Furosemide (LASIX 20MG INJ) 20 MG BLOOD-DOSE BETWEEN IV (CKD) Sodium Chloride (SODIUM CHLORIDE) 10 ML ASDIR IV Pantoprazole Sodium (PROTONIX) 40 MG Q12HR IV Polyethylene Glycol (MIRALAX) 17 GM DAILY PO Sennosides (Senna Lax 8.6 MG TABLET) 8.6 MG DAILY PO Sodium Chloride (SODIUM CHLORIDE) 10 ML ASDIR PRN IV Amitriptyline HCl (ELAVIL) 25 MG BEDTIME PO Zinc Oxide (ZINC OXIDE 30 GM OINTMENT) 1 APPLIC DAILY TOPICAL Sterile Water (WATER FOR IRRIGATION) DRESSING CHANGE ASDIR PRN IRR Insulin Human Lispro (HUMALOG) 0 AC HS SUBQ Dextrose/Water (DEXTROSE 10% IN WATER) 125 ML ASDIR PRN IV (CKD) Dextrose/Water (DEXTROSE 10% IN WATER) 250 ML ASDIR PRN IV (CKD) Glucagon (GLUCAGON) 1 MG ASDIR PRN IM Lidocaine (LIDODERM) 1 PATCH DAILY TOPICAL Insulin Human Lispro (HUMALOG) 5 UNIT AC SUBQ Miscellaneous Information (VANCOMYCIN PHARMACY TO DOSE) 1 EACH ASDIR IV (DC) Heparin Sodium (HEPARIN 5000 UNITS/ML) 5,000 UNIT Q8HR SUBQ Acetaminophen (TYLENOL) 650 MG Q6H PRN PRN PO Bisacodyl (DULCOLAX) 10 MG DAILY PRN PRN RECTAL Docusate Sodium (COLACE) 100 MG Q12H PRN PRN PO Hydralazine HCl (APRESOLINE) 10 MG Q6H PRN PRN IV Ondansetron HCl (ZOFRAN) 4 MG Q6H PRN PRN IV Physical ExamGeneral appearance: alert, awake, oriented, no acute distressHead/eyes: atraumatic, EOMI, normocephalic, normal conjunctiva/sclera, PERRLAENT: normal ear left, normal ear right, normal nose, normal pharynx, moist mucosal membranesNeck: full range of motion, no lymphadenopathy, supple/no meningismusCardiovascular: regular rate rhythmRespiratory: clear to auscultation, no distress, aerating wellAbdomen: soft, non-tender, no distention, active bowel sounds in all quarants. Abdomen quadrantsLLQ normal bowel sounds, LUQ normal bowel sounds, RLQ normal bowel sounds, RUQ normal bowel soundsExtremities: moves all, no edema, pedal pulsesNeuro/DIRECTOR OPERATING ROOM: 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, no sensory deficits, CNII-XII grossly intact Considered stroke alert: noSkin: dry, normal color, normal turgorPsychiatry: normal affect ResultsFindings/data:Laboratory Tests: 09/13 09/13 09/12 09/12 09/12 0543 0455 2016 1606 1115Chemistry Sodium (134 - 147 mEq/L) 133 L [...] B-Natriuretic Peptide (0 - 100 PG/ML) 297.0 HHematology Eos Smear Total Cells NONE SEEN 09/12 1105 Chemistry POC Glucose (70 - 110 MG/DL) 68 L Microbiology: Date/Time Procedure - Status Source Growth 09/13 0455 MRSA DNA Surveillance Screen - RECD NASAL Recent Impressions:RADIOLOGY - XR CHEST 1 V 09/12 1418 Report Impression - Status: SIGNED Entered: 09/12/20222028 IMPRESSION: Worsening opacities in the right mid and lower lung reyes. Mildly improved left retrocardiac opacities. Impression By: [email or web address] - Abel Browne M.D. Diagnosis, Assessment PlanFree text A P:A/P:Patient is a 56 year old male who presents with: Recent prostate abscess-Status post TURP with unroofing of abscess-IV antibiotics with vancomycin until 09-24-2022 Acute postoperative pain, right foot and ankle gangrene, requiring BKA-Patient is at risk for further amputations or loss of limb due to comorbid conditions-Status post right BKA 08/28/2022-DC Sheldon 10/325 1 tablet p.o. every 4 hours as needed pain scale 4 10-Tylenol 650 mg p.o. every 6 hours as needed pain scale 1 3-DC Dilaudid 0.5 mg IV daily as needed pain scale 7 10, second line therapy (09/13)-Percocet 10/325mg every 4 hours as needed, pain scale 4-10 (09/10)-Lidoderm patch to left ankle daily-IV antibiotics with vancomycin until 09-24-2022-Local wound care-manageable Diabetic peripheral neuropathy-amitriptyline 25mg PO QHS-Gabapentin 100mg every 8 hours (09/10)-manageable Hypertension-We will monitor hypertension and tachycardia due to pain, and hypotension as well as bradycardia secondary over sedation with narcotics-Hydralazine as needed Elevated LFTs-08/20/22-AST 51, ALT 22-09/03/2022-AST 15, ALT 7-Patient will require close monitoring since he is using narcotics with Tylenol Impaired functional mobility, balance, gait, and endurance-PT/OT Antalgic/Impaired gait-PT/OT-Improve strength, endurance, self-care, gait, balance, ADLs-Fall precautions per unit protocol-Pain medications as outlined above Constipation-We will monitor while utilizing opioid narcotic medications.-Adequate fluid intake also discussed.-Colace 100 mg p.o. twice daily as needed-Dulcolax 10 mg rectally daily as needed-Senna lax 8.6mg daily-Miralax 17gm daily-manageable Disposition: Past Medical History: Prostate abscess, right foot foot and ankle gangrene, diabetes, hypertension, hyperlipidemiaPast Surgical History: TURP, right BKAFamily History: NoncontributorySocial History: Denies tobacco, alcohol, or drug useAllergies: NKDA Patient has failed conservative medical therapy.Patient will require monitoring while utilize narcotic medications for any adverse effects, and will adjust as neededPlan of care discussed with patient and nurseAll diagnostics of last 24 hours been reviewed. Risks versus benefits of opioid medications were reviewed to include, but not limited to respiratory depression, accidental overdose, altered mental status, sudden , constipation which could result in bowel obstruction, seizures, withdrawal, dependency addiction, risk for falls. Case discussed with Dr Ng whom agrees. Thank you for the consultation. [place] DISABILITY HEARING OFFICER:-database searched, no information found at 1453 at 1149 RPT #:[id number] OF REPORTPRProgress [id number]:46:00G.[id number] able for patient ggzsANYJYGNXDAZOTK8106-15-95I69:53:30 [facility] 2022-09-13 06:34:00 [id number] ZVA7orPF9xutU8Y19PbM/aohh0zRh 8Fjv1/8khTgbJZD8E4omETo0wiA0233-78-51R99:34:00 [facility] ([facility])Rehab Progress NoteREPORT#:[id number] REPORT STATUS: SignedDATE:09/13/22 TIME: 633 PATIENT: KARMA ROWLAND UNIT #: [id number]#: [id number] ROOM/BED: G537-1DOB: [birth year] AGE: 56 SEX: M ATTEND: Mj Vences MDADM AUTHOR: Guero Candelaria * ALL edits or amendments must be made on the electronic/computer document * SubjectiveChief complaint:Rehab follow-upDoing wellReports thigh and pelvic area edemaEating 75-100% at bedside+ BMDenies DICKENS/N/V/D/CP14 systems reviewed and neg. except that above.History of present illness:56 yo HAM with long h/o DM, and HTN who was admitted for fever, flulike symptomsand altered mental status on 08/18. He was doing well until about 3 days prior toadmission when he noted blister to have formed on the dorsum of his foot. His foot started progressively getting more swollen and the blisters started enlarging and extending to his lateral foot and ankle. He started feeling weak and nauseated. He was noted to have altered mentation and was brought to our ER.He was noted to be in DKA with Blood sugars greater than 600. He was seen by podiatry and surgery for BLE wounds and infection. He was treated in ICU for sepsis and DKA. He underwent incisional and excisional debridement of right footand right ankle by podiatry. Patient also found to have prostate abscess underwent transrectal ultrasound aspiration of abscess and transurethral resection of prostate and unroofing of abscess by urology Dr. Du. Endocrinology treated the DKA and blood sugars much improved. Patient's right foot was not salvageable and patient underwent right BKA by Dr. LEROY on 08/28. Patient blood cultures showed MRSA. Patient continued on antibiotics as per ID. MRI of the pelvis and foot completed. Patient required multiple PRBCs for anemia. Patient was found to have a possible small hematoma of the left calf onultrasound. He complains of pain and swelling of the left ankle. Patient hemodynamically stable and plans are to be transferred to stepdown unit. He is on heparin subcu for VTE. After surgery he is now being mobilized by PT and OT.He is wearing a maxine-tech orthotic for right knee/BKA protection. Prior to admission the patient was independent living in a single-story house with his spouse with a few steps up to front and back door. 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 is at bedside. Patient denies nausea, vomiting, fever, chills, chest pain, shortness of breath with dizziness. He is requiring IV Dilaudid for pain control. Mental status back to baseline. Pt is progressing slowly with therapy d/t weakness and pain, self care deficit, decreased endurance and balance, and decreased functional mobility. Pt requiring acute inpt rehab for multidisciplinary team of nursing, therapy, and physicians. Pt iswilling and able to partici- kathleen in 3 hr/day inpt rehab to d/c home safely. Pt's prior level of function was independent. Objective GeneralVS:Vital Signs: Date Time Temp Pulse Resp B/P B/P Pulse O2 O2 Flow FiO2 Mean Ox Delivery Rate 09/12 2315 97.9 86 18 148/74 98.7 93 09/12 1920 97.9 85 18 157/80 105.3 97 09/12 1522 97.5 82 18 152/80 103.8 94 Room air 09/12 0647 97.9 83 17 136/76 96.2 95 Room air PATIENT WEIGHT: Weight (lb): 165Weight (oz): 5.55Weight (kg): 75.000 Medications:Active Meds + DC'd Last 24 HrsFurosemide (LASIX) 20 MG BID 9A 5P PO Methylprednisolone Sodium Succinate (Solu-Medrol 125 MG Vial) 125 MG DAILY 1400 IV Daptomycin (CUBICIN 500MG) 500 MG Q24H IV Sodium Chloride (SODIUM CHLORIDE 0.9%) 50 MLMeropenem (MEROPENEM) 500 MG Q12H IV Sterile Water (WATER FOR INJECTION) 10 MLHydromorphone HCl (DILAUDID) 0.5 MG DAILY PRN PRN IV Cefepime HCl (MAXIPIME) 1 GM Q8H IV (DC) Sodium Chloride (SODIUM CHLORIDE) 10 MLGabapentin (NEURONTIN) 100 MG Q8HR PO Hydromorphone HCl (DILAUDID) 0.5 MG Q12H PRN PRN IV (DC) Oxycodone/Acetaminophen (PERCOCET 5/325MG TAB) 2 TAB Q4H PRN PRN PO Ferric Sodium Gluconate Complex (FERRLECIT) 125 MG DAILY IV Sodium Chloride (SODIUM CHLORIDE 0.9%) 100 MLFolic Acid (FOLIC ACID) 2 MG DAILY PO Multivitamins (TAB-A-MOHAN) 1 TAB DAILY PO Carvedilol (COREG) 12.5 MG C BK DIN PO Insulin Glargine (Semglee) 5 UNIT BEDTIME SUBQ Furosemide (LASIX 20MG INJ) 20 MG BLOOD-DOSE BETWEEN IV (CKD) Sodium Chloride (SODIUM CHLORIDE) 10 ML ASDIR IV Pantoprazole Sodium (PROTONIX) 40 MG Q12HR IV Polyethylene Glycol (MIRALAX) 17 GM DAILY PO Sennosides (Senna Lax 8.6 MG TABLET) 8.6 MG DAILY PO Sodium Chloride (SODIUM CHLORIDE) 10 ML ASDIR PRN IV Amitriptyline HCl (ELAVIL) 25 MG BEDTIME PO Zinc Oxide (ZINC OXIDE 30 GM OINTMENT) 1 APPLIC DAILY TOPICAL Sterile Water (WATER FOR IRRIGATION) DRESSING CHANGE ASDIR PRN IRR Insulin Human Lispro (HUMALOG) 0 AC HS SUBQ Dextrose/Water (DEXTROSE 10% IN WATER) 125 ML ASDIR PRN IV (CKD) Dextrose/Water (DEXTROSE 10% IN WATER) 250 ML ASDIR PRN IV (CKD) Glucagon (GLUCAGON) 1 MG ASDIR PRN IM Lidocaine (LIDODERM) 1 PATCH DAILY TOPICAL Insulin Human Lispro (HUMALOG) 5 UNIT AC SUBQ Miscellaneous Information (VANCOMYCIN PHARMACY TO DOSE) 1 EACH ASDIR IV (DC) Heparin Sodium (HEPARIN 5000 UNITS/ML) 5,000 UNIT Q8HR SUBQ Acetaminophen (TYLENOL) 650 MG Q6H PRN PRN PO Bisacodyl (DULCOLAX) 10 MG DAILY PRN PRN RECTAL Docusate Sodium (COLACE) 100 MG Q12H PRN PRN PO Hydralazine HCl (APRESOLINE) 10 MG Q6H PRN PRN IV Ondansetron HCl (ZOFRAN) 4 MG Q6H PRN PRN IV Functional ProgressFunctional progress:PT daily note comment: s. patient agreed to PT, reported continued swelling to le, and low back pain 8// O. PATIENT SUPINE IN BED, WORKED ON L EEX IN SUPINE ACROSS ALL PLANES, PATIENT WORKED ON BED MOB, CUES TO ROLL TO LEFT AND PUSH OF WITH ELBOW, ABLE TO SIT UP EOB WITH CGA FOR SAFETY , WORKED ON SQUAT PIVOT TRANSFERS WITH WC SET UP TO LEFT, EDUCATED ON LOCKING BRAKES AND MIN A FOR SQUAT PIVOT TRANSFER TO WC, PATIENT WORKED ON WC PROPULSION AROUND THE UNIT WITH MOD I, 200 FEET X 2. PATIENT WORKED ONLEE X IN WC TO INCREASE LE STRENGTH, [...] SITTING UP IN WC WITH CALL BUTTON INREACH, INSTRUCTIONS TO CALL FOR ASSISTANCE/. A. PATIENT IS PROGRESSING WITH PT, REQUIRES MIN AFOR TRANSFERS AND IMPROVING STANDING IN PARALLEL BARSWITH CGA . Physical ExamGeneral appearance: alert, awakePsych: alert, normal affect, oriented x 3HEENT: anicteric, sclera clearNeck: supple, no JVDCardiovascular: S1/S2, no murmurRespiratory: aerating well, clear bilaterallyAbdomen: bowel sounds present, non-distended, soft, non-tenderSkin: no rash, R BKA HEALING. L ankle/foot wrapped with kerlixMusculoskeletal - general: Musculoskeletal - general: swelling (LLE, calve NT, homans neg), BUE 5/5, LLE4/5, R hip 3-Neuro/DIRECTOR OPERATING ROOM: alert, oriented X 3, CNII-XII intact ResultsFindings/Data:Laboratory Tests: 09/1343 2016 1606 1115 1105Chemistry POC Glucose (70 - 110 MG/DL) 258 H 223 H 150 H 68 L B-Natriuretic Peptide (0 - 100 297.0 HPG/ML)Hematology Eos Smear Total Cells NONE SEEN Microbiology:09/13 0500 NASAL: MRSA DNA Surveillance Screen - COLB Diagnosis, Assessment PlanProblem List/A P: 1. Gangrene of right foot 2. Below-knee amputation of right lower extremity 3. MRSA bacteremia 4. Cellulitis of foot, right 5. DKA (diabetic ketoacidosis) 6. Hyperglycemia 7. ERIKA (acute kidney injury) 8. Postoperative pain 9. Acute anemia 10. Prostate abscess 11. Impaired functional mobility, balance, gait, and endurance Free Text A P:Assessment:Severe Gas gangrene right foot and right ankle associated with osteomyelitis andnecrotizing fasciitisS/p surgical debridement and washout08/28: S/p right BKA-Dr. Friedmanificant impairment in self-care, ADLs and functional mobilityImpaired mobility and gaitAcute postoperative pain right BKADiabetic polyneuropathyDKA, DM 2, poorly controlled, A1c greater than 14PADMRSA bacteremia/sepsis-treated on acuteAKISevere hyponatremia-resolvedHTNAcute on chronic anemia requiring multiple transfusions, possible GI bleedLeft calf hematomaEdema and clinical arthritis left ankleEarly decubitus to left heel/DTI dorsal left midfootProstatic abscess 08/26: S/p transrectal ultrasound aspiration of abscess and transurethral resection of prostate and unroofing of abscessEcho: EF 55-59%, grade 1 diastolic dysfunction09/02: JIMENA negative for vegetationMRSA OF NARES09/08:s/p EGD and colonoscopy. EGD showed mild gastritis. Colonoscopy showed rectal polyp that was resected by snare (tubular adenoma)-repeat colonoscopy in 5 years Plan:-PLOF: Independent with transfers and gait-Amputee rehab program-Continue PT and OT-15/12 rehabilitation nursing care.-Case management for safe discharge planning.-Decubitus prevention-Early decubitus to left heel/DTI dorsal left midfoot-zinc oxide to the foot, foam, offloading, podiatry managing-DVT prophylaxis-subcutaneous heparin-Strict fall and safety precautions-Work on bed mobility, transfer training, ADLs, pre-gait and gait exercises-Increase endurance and strength-Monitor pain with therapies-OOB to chair-Monitor p.o. intake and nutrition, albumin 1.3, prealbumin less than 5, dietaryconsultation, protein supplements to promote zjzwecn-Hronmnxb-U5u 14, tight glycemia control- endocrine on board, insulin adjustments-Endocrinology, ID, podiatry, cardiology, IM consulted-Pain management adjusting pain medications-Anemia, patient required multiple units of PRBCs on acute, FOBT positive-IV Protonix-consult GI-serial H H-no evidence of gross bleeding-discussed with Dr. TrinidadQveicysd-Cuapbdabcjph-hflbnkwle alxauise-MUB-obzyfa-CW Senokot and MiraLAX, DSP-Right DEV-ipjkqpn-ncrtsonu resolved, dressings changed irboa-gwfhbhd-mjqmltll FRG-ITKT-KJGX OF NARES on Bactroban protocol-LLE edema-venous Doppler with complex heterogeneous hypoechoic fluid collectionin the left calf region measuring 8.4, 2.8, 2.5 cm suggestive of hematoma. On low-dose Lasix. Joan wrap LLE-LE edema could be related to hypoalbuminemia leading to third spacing-edema improving-Generalized edema-some shortness of breath and abdominal distention-cardiology gave a dose of IV Lasix-monitor urine output, daily weights-SOB resolved-09/05-venous Doppler of LLE-negative for DVT-Joan wrap dressing and elevation-Chest x-ray with minimal basilar pulmonary wqjkyrbvd-Bwferm-xpgoplnvrw 8.3, 7.7, transfused 2 units of PRBC on 09/05-09/08: s/p EGD and colonoscopy. EGD showed mild gastritis. Colonoscopy showed rectal polyp that was resected by snare. Anemia likely secondary to chronic kidney disease. Consult renal.-Pathology of polyp came back as tubular adenoma. recommend repeating colonoscopy in 5 years as per GI-Consider video capsule endoscopy as outpt if evidence of dropping H/H-Chemistries good, creatinine 2.0, 2.4, magnesium normal-Renal ultrasound negative-09/12/2022 laboratory this morning showed sodium 134, potassium 4.2, CO2 20, BUN31, creatinine 2.4 continues to worsen, discussed with ID, AIN is probably the etiology of the unexplained deterioration of his renal function, antibiotics to be adjusted by infectious disease, will give Solu-Medrol 125 mg IV daily for 3 days. Significant lower extremity edema, will start Lasix 20 mg p.o. twice daily-as per renal-Continue antibiotics per ID-on cefepime and vancomycin until 09/24 for treatment of prostatic abscess-Camarena as per -Noted LLE swelling (not new) and low albumin. may benefit from albumin infusion+ Lasix-CXR, BNP and Echo per cardiology gentle diuresis per cardio and renal-Advance therapies as tolerated-discussed treatment plan with patient and -Patient progressing with therapies, requires multiple rest breaks. Some back pain improved with pain medications. Mild dizziness and blood pressure 162/79 with no increase in symptoms during sessions. Patient making steady progress towards goals. PM RPlease see team note.Plan and goals discussed with the patient. I agree with the teams findingELOS- [09/19]DC-Home with -Home healthDME-bedside commode, sliding board, wheelchair, Total time 33 minutes greater than 50% of the time spent examining patient, discussing with patient about work-up for edema, medical issues, anemia, GI recommendations, amputee rehab plan of care, goals, therapies, progress, labs, medications. EMR and MAR is reviewed. All questions answeredRehab attestation:Face to face exam completed. Treatment plan discussed with patient. Meets continued stay criteria. Agree with interdisciplinary treatment plan. at 2051 RPT #:[id number] OF REPORTPRProgress cbhm0257-17-82A32:34:00G.[id number] able for patient qoezUGUVDASRLCOMFY4739-45-29E39:52:01 [facility] 2022-09-12 20:28:00 [id number] fkc3Jn6dl/12vsOYaQJW8jY2evabW tLw8SfkvoiqUDqNUtK/JckXOkvP6199-88-71J72:28:00 [facility])Podiatry Progress NoteREPORT#:[id number] REPORT STATUS: SignedDATE:09/12/22 TIME: 2027 PATIENT: KARMA ROWLAND UNIT #: [id number]#: [id number] [address] [birth year] AGE: 56 SEX: M ATTEND: Mj eVnces [facility] AUTHOR: Liam Pedersen DPM * ALL edits or amendments must be made on the electronic/computer document * SubjectiveChief complaint:left heel ulcer. left ankle painPatient reports: no constipation, no cough, no dizziness, no fever, no nausea Objective GeneralVS:Last Documented: Result Date Time Pulse Ox 97 09/13 1919 B/P 157/80 09/13 1919 B/P Mean 105.3 09/13 1919 Temp 36.6 09/13 1919 Pulse 85 09/13 1919 Resp 18 09/13 1919 O2 Delivery Room air 09/12 152 O2 Flow Rate 2 09/08 1322 PATIENT WEIGHT: Weight (lb): 165Weight (oz): 5.55Weight (kg): 75.000 Medications:Active Meds + DC'd Last 24 HrsFurosemide (LASIX) 20 MG BID 9A 5P PO Methylprednisolone Sodium Succinate (Solu-Medrol 125 MG Vial) 125 MG DAILY 1400 IV Daptomycin (CUBICIN 500MG) 500 MG Q24H IV Sodium Chloride (SODIUM CHLORIDE 0.9%) 50 MLMeropenem (MEROPENEM) 500 MG Q12H IV Sterile Water (WATER FOR INJECTION) 10 MLHydromorphone HCl (DILAUDID) 0.5 MG DAILY PRN PRN IV Vancomycin HCl (VANCOMYCIN HCL) 500 MG ONCE ONE IV (DC) Sodium Chloride (SODIUM CHLORIDE 0.9% 100 ML) 100 MLCefepime HCl (MAXIPIME) 1 GM Q8H IV (DC) Sodium Chloride (SODIUM CHLORIDE) 10 MLGabapentin (NEURONTIN) 100 MG Q8HR PO Hydromorphone HCl (DILAUDID) 0.5 MG Q12H PRN PRN IV (DC) Oxycodone/Acetaminophen (PERCOCET 5/325MG TAB) 2 TAB Q4H PRN PRN PO Ferric Sodium Gluconate Complex (FERRLECIT) 125 MG DAILY IV Sodium Chloride (SODIUM CHLORIDE 0.9%) 100 MLFolic Acid (FOLIC ACID) 2 MG DAILY PO Multivitamins (TAB-A-MOHAN) 1 TAB DAILY PO Carvedilol (COREG) 12.5 MG C BK DIN PO Insulin Glargine (Semglee) 5 UNIT BEDTIME SUBQ Furosemide (LASIX 20MG INJ) 20 MG BLOOD-DOSE BETWEEN IV (CKD) Sodium Chloride (SODIUM CHLORIDE) 10 ML ASDIR IV Pantoprazole Sodium (PROTONIX) 40 MG Q12HR IV Polyethylene Glycol (MIRALAX) 17 GM DAILY PO Sennosides (Senna Lax 8.6 MG TABLET) 8.6 MG DAILY PO Sodium Chloride (SODIUM CHLORIDE) 10 ML ASDIR PRN IV Amitriptyline HCl (ELAVIL) 25 MG BEDTIME PO Zinc Oxide (ZINC OXIDE 30 GM OINTMENT) 1 APPLIC DAILY TOPICAL Sterile Water (WATER FOR IRRIGATION) DRESSING CHANGE ASDIR PRN IRR Insulin Human Lispro (HUMALOG) 0 AC HS SUBQ Dextrose/Water (DEXTROSE 10% IN WATER) 125 ML ASDIR PRN IV (CKD) Dextrose/Water (DEXTROSE 10% IN WATER) 250 ML ASDIR PRN IV (CKD) Glucagon (GLUCAGON) 1 MG ASDIR PRN IM Lidocaine (LIDODERM) 1 PATCH DAILY TOPICAL Insulin Human Lispro (HUMALOG) 5 UNIT AC SUBQ Miscellaneous Information (VANCOMYCIN PHARMACY TO DOSE) 1 EACH ASDIR IV (DC) Heparin Sodium (HEPARIN 5000 UNITS/ML) 5,000 UNIT Q8HR SUBQ Acetaminophen (TYLENOL) 650 MG Q6H PRN PRN PO Bisacodyl (DULCOLAX) 10 MG DAILY PRN PRN RECTAL Docusate Sodium (COLACE) 100 MG Q12H PRN PRN PO Hydralazine HCl (APRESOLINE) 10 MG Q6H PRN PRN IV Ondansetron HCl (ZOFRAN) 4 MG Q6H PRN PRN IV I O:24 hour I O ending at 0700: 09/12 0700 09/11 1900 Intake Total 100.00 960 Output Total 850 375 Balance -750.00 585 Intake, IV 100.00 Intake, Oral 960 Number 0 0 Incontinent Voids Number Voids 0 0 Output, Urine 850 375 Dietitian nutrition assessmentThe data set between the solid lines has been imported from the dietitian's assessment. BMI Calculated: 26.7Nutrition related diagnosis: Nutrition diagnosis details: Nutrition problem: Altered nutrition labsNutrition etiology: DMNutrition signs and symptoms: HYPER/HYPOGLYCEMIA, A1C >14Nutrition prescription: CONTINUE DM DIETDietitian name: You Palmer DIETAssessment completed: 09/09/22 Physical ExamGeneral appearance: alert, awake, orientedWound/incision: Location:left foot Site condition: dp/pt 2/4 left. light touch decreased left foot. ulcer starting at posterior left heel. eccymosis noted. early likely stage 1. left ankle has edema. pain with aggressive ROM left ankle.LE vascular pulse assess:2+ L posterior tibialis, 2+ L dorsalis pedis Considered stroke alert: noUlcer: Location: DTI dorsal left midfoot ResultsFindings/Data:Laboratory Tests: 09/12 09/12 09/12 09/12 1606 1115 [...] % (Auto) (14.0 - 32.0 %) 15.0 [place] % (Auto) (4.8 - 9.0 %) 7.9 Eos % (Auto) (0.3 - 3.7 %) 3.8 H Baso % (Auto) (0.0 - 2.0 %) 0.3 Neut # (Auto) (2.0 - 7.6 x10 3/uL) 6.34 Lymph # (Auto) (1.0 - 3.8 x10 3/uL) 1.31 [place] # (Auto) (0.1 - 0.8 x10 3/uL) 0.69 Eos # (Auto) (0.0 - 0.2 x10 3/uL) 0.33 H Baso # (Auto) (0.0 - 0.2 x10 3/uL) 0.03 Abs Immat Gran (auto) (0.00 - 0.03 x10 3/uL) 0.06 H Add Manual Diff NO Immature Gran % (0.0 - 2.0 %) 0.7 Nucleated RBC % (0 - 0 %) 0.0 Nucleated RBCs # (Man) (0.0 - 0.1 x10 3/uL) 0.00 Toxicology Random Vancomycin (mcg/mL) 16.7 Diagnosis, Assessment PlanFree Text A P:DM with neuropathyearly decub ulcer left heelOA/edema left ankleDTI dorsal left midfoot zinc oxide to foot and heelfoam to heelon IV abxon PO gabapentinoffloading bootace wraps to ankle, only when OOB with therapy. Consultants: cardiology, endocrinology, hospitalist, infectious disease, podiatry at 2030 RPT #:[id number] OF REPORTPRProgress qgfs1066-33-80Y53:28:00G.[id number] able for patient lfamVVYVLZFNHYQKMM3831-33-08B58:30:38 [facility] 2022-09-12 18:02:00 [id number] O3H8u3c+MWQ7g32YQrOQQRLnc/Jbk WJrIs/WIvG53YghLXJraDjwBbW46286-25-93B22:02:00 [facility] ([facility])Endocrinology Progress NoteREPORT#:[id number] REPORT STATUS: SignedDATE:09/12/22 TIME: 180 PATIENT: KARMA ROWLAND UNIT #: [id number]#: [id number] [address] [birth year] AGE: 56 SEX: M ATTEND: Mj Vences [facility] AUTHOR: Braxton Chapin MD * ALL edits or amendments must be made on the electronic/computer document * SubjectivePatient reports: no complaints Objective GeneralVS:Last Documented: Result Date Time Pulse Ox 94 09/12 1522 B/P 152/80 09/12 1522 B/P Mean 103.8 09/12 1522 O2 Delivery Room air 09/12 1522 Temp 36.4 09/12 1522 Pulse 82 09/12 1522 Resp 18 09/12 1522 O2 Flow Rate 2 09/08 1322 PATIENT WEIGHT: Weight (lb): 165Weight (oz): 5.55Weight (kg): 75.000 Medications:Active Meds + DC'd Last 24 HrsFurosemide (LASIX) 20 MG BID 9A 5P PO Methylprednisolone Sodium Succinate (Solu-Medrol 125 MG Vial) 125 MG DAILY 1400 IV Daptomycin (CUBICIN 500MG) 500 MG Q24H IV Sodium Chloride (SODIUM CHLORIDE 0.9%) 50 MLMeropenem (MEROPENEM) 500 MG Q12H IV Sterile Water (WATER FOR INJECTION) 10 MLHydromorphone HCl (DILAUDID) 0.5 MG DAILY PRN PRN IV Vancomycin HCl (VANCOMYCIN HCL) 500 MG ONCE ONE IV (DC) Sodium Chloride (SODIUM CHLORIDE 0.9% 100 ML) 100 MLCefepime HCl (MAXIPIME) 1 GM Q8H IV (DC) Sodium Chloride (SODIUM CHLORIDE) 10 MLGabapentin (NEURONTIN) 100 MG Q8HR PO Hydromorphone HCl (DILAUDID) 0.5 MG Q12H PRN PRN IV (DC) Oxycodone/Acetaminophen (PERCOCET 5/325MG TAB) 2 TAB Q4H PRN PRN PO Ferric Sodium Gluconate Complex (FERRLECIT) 125 MG DAILY IV Sodium Chloride (SODIUM CHLORIDE 0.9%) 100 MLFolic Acid (FOLIC ACID) 2 MG DAILY PO Multivitamins (TAB-A-MOHAN) 1 TAB DAILY PO Carvedilol (COREG) 12.5 MG C BK DIN PO Insulin Glargine (Semglee) 5 UNIT BEDTIME SUBQ Furosemide (LASIX 20MG INJ) 20 MG BLOOD-DOSE BETWEEN IV (CKD) Sodium Chloride (SODIUM CHLORIDE) 10 ML ASDIR IV Pantoprazole Sodium (PROTONIX) 40 MG Q12HR IV Polyethylene Glycol (MIRALAX) 17 GM DAILY PO Sennosides (Senna Lax 8.6 MG TABLET) 8.6 MG DAILY PO Sodium Chloride (SODIUM CHLORIDE) 10 ML ASDIR PRN IV Amitriptyline HCl (ELAVIL) 25 MG BEDTIME PO Zinc Oxide (ZINC OXIDE 30 GM OINTMENT) 1 APPLIC DAILY TOPICAL Sterile Water (WATER FOR IRRIGATION) DRESSING CHANGE ASDIR PRN IRR Insulin Human Lispro (HUMALOG) 0 AC HS SUBQ Dextrose/Water (DEXTROSE 10% IN WATER) 125 ML ASDIR PRN IV (CKD) Dextrose/Water (DEXTROSE 10% IN WATER) 250 ML ASDIR PRN IV (CKD) Glucagon (GLUCAGON) 1 MG ASDIR PRN IM Lidocaine (LIDODERM) 1 PATCH DAILY TOPICAL Insulin Human Lispro (HUMALOG) 5 UNIT AC SUBQ Miscellaneous Information (VANCOMYCIN PHARMACY TO DOSE) 1 EACH ASDIR IV (DC) Heparin Sodium (HEPARIN 5000 UNITS/ML) 5,000 UNIT Q8HR SUBQ Acetaminophen (TYLENOL) 650 MG Q6H PRN PRN PO Bisacodyl (DULCOLAX) 10 MG DAILY PRN PRN RECTAL Docusate Sodium (COLACE) 100 MG Q12H PRN PRN PO Hydralazine HCl (APRESOLINE) 10 MG Q6H PRN PRN IV Ondansetron HCl (ZOFRAN) 4 MG Q6H PRN PRN IV Physical ExamGeneral appearance: alert, awake Diagnosis, Assessment PlanHospital course to date:Laboratory Tests: 09/12 09/12 09/12 09/12 1606 1115 [...] % (Auto) (14.0 - 32.0 %) 15.0 Lenoir % (Auto) (4.8 - 9.0 %) 7.9 Eos % (Auto) (0.3 - 3.7 %) 3.8 H Baso % (Auto) (0.0 - 2.0 %) 0.3 Neut # (Auto) (2.0 - 7.6 x10 3/uL) 6.34 Lymph # (Auto) (1.0 - 3.8 x10 3/uL) 1.31 Lenoir # (Auto) (0.1 - 0.8 x10 3/uL) 0.69 Eos # (Auto) (0.0 - 0.2 x10 3/uL) 0.33 H Baso # (Auto) (0.0 - 0.2 x10 3/uL) 0.03 Abs Immat Gran (auto) (0.00 - 0.03 x10 3/uL) 0.06 H Add Manual Diff NO Immature Gran % (0.0 - 2.0 %) 0.7 Nucleated RBC % (0 - 0 %) 0.0 Nucleated RBCs # (Man) (0.0 - 0.1 x10 3/uL) 0.00 Toxicology Random Vancomycin (mcg/mL) 16.7 Laboratory Tests: 09/11 09/11 09/11 09/11 09/11 1532 1445 1114 0541 0445Chemistry Sodium (134 - 147 mEq/L) 134 Potassium [...] MG/DL) 4.7 Magnesium (1.80 - 2.40 mg/dL) 1.90Hematology WBC (4.5 - 11.0 x10 3/uL) 7.9 [...] % (Auto) (14.0 - 32.0 %) 16.1 Lenoir % (Auto) (4.8 - 9.0 %) 9.1 H Eos % (Auto) (0.3 - 3.7 %) 5.6 H Baso % (Auto) (0.0 - 2.0 %) 0.5 Neut # (Auto) (2.0 - 7.6 x10 3/uL) 5.35 Lymph # (Auto) (1.0 - 3.8 x10 3/uL) 1.27 Lenoir # (Auto) (0.1 - 0.8 x10 3/uL) 0.72 Eos # (Auto) (0.0 - 0.2 x10 3/uL) 0.44 H Baso # (Auto) (0.0 - 0.2 x10 3/uL) 0.04 Abs Immat Gran (auto) (0.00 - 0.03 0.06 Hx10 3/uL) Add Manual Diff NO Immature Gran % (0.0 - 2.0 %) 0.8 Nucleated RBC % (0 - 0 %) 0.0 Nucleated RBCs # (Man) (0.0 - 0.1 0.00x10 3/uL)Toxicology Random Vancomycin (mcg/mL) 18.3 09/10 1851 Chemistry POC Glucose (70 - 110 MG/DL) 97 Laboratory Tests: 09/10 09/10 09/10 09/10 09/10 1715 1625 1430 1007 0545Chemistry Sodium (134 - 147 mEq/L) 135 Potassium [...] MG/DL) 4.6 Magnesium (1.80 - 2.40 mg/dL) 1.89Hematology WBC (4.5 - 11.0 x10 3/uL) 8.6 [...] % (Auto) (14.0 - 32.0 %) 15.5 Lenoir % (Auto) (4.8 - 9.0 %) 8.5 Eos % (Auto) (0.3 - 3.7 %) 5.5 H Baso % (Auto) (0.0 - 2.0 %) 0.4 Neut # (Auto) (2.0 - 7.6 x10 3/uL) 5.94 Lymph # (Auto) (1.0 - 3.8 x10 3/uL) 1.33 Lenoir # (Auto) (0.1 - 0.8 x10 3/uL) 0.73 Eos # (Auto) (0.0 - 0.2 x10 3/uL) 0.47 H Baso # (Auto) (0.0 - 0.2 x10 3/uL) 0.03 Abs Immat Gran (auto) (0.00 - 0.03 0.06 Hx10 3/uL) Add Manual Diff NO Immature Gran % (0.0 - 2.0 %) 0.7 Nucleated RBC % (0 - 0 %) 0.0 Nucleated RBCs # (Man) (0.0 - 0.1 0.00x10 3/uL)Toxicology Random Vancomycin (mcg/mL) 15.7 09/10 09/09 0541 1911 Chemistry POC Glucose (70 - 110 MG/DL) 154 H 102 Recent Impressions:ULTRASOUND - US RETROPERITONEAL COM 09/10 1311 Report Impression - Status: SIGNED Entered: 09/10/2022 1503 IMPRESSION: No acute findings. Impression By: Yared Mares M.D. Laboratory Tests: 09/09 09/09 09/09 09/09 09/09 [...] % (Auto) (14.0 - 32.0 %) 16.1 Lenoir % (Auto) (4.8 - 9.0 %) 9.2 H Eos % (Auto) (0.3 - 3.7 %) 4.7 H Baso % (Auto) (0.0 - 2.0 %) 0.4 Neut # (Auto) (2.0 - 7.6 x10 3/uL) 6.38 Lymph # (Auto) (1.0 - 3.8 x10 3/uL) 1.49 Lenoir # (Auto) (0.1 - 0.8 x10 3/uL) 0.85 H Eos # (Auto) (0.0 - 0.2 x10 3/uL) 0.43 H Baso # (Auto) (0.0 - 0.2 x10 3/uL) 0.04 Abs Immat Gran (auto) (0.00 - 0.03 x10 3/uL) 0.05 H Add Manual Diff NO Immature Gran % (0.0 - 2.0 %) 0.5 Nucleated RBC % (0 - 0 %) 0.0 Nucleated RBCs # (Man) (0.0 - 0.1 x10 3/uL) 0.00 Retic Count (auto) (0.3 - 2.3 [...] (Auto) (14.0 - 32.0 %) 13.7 L Lenoir % (Auto) (4.8 - 9.0 %) 7.2 Eos % (Auto) (0.3 - 3.7 %) 4.8 H Baso % (Auto) (0.0 - 2.0 %) 0.3 Neut # (Auto) (2.0 - 7.6 x10 3/uL) 6.64 Lymph # (Auto) (1.0 - 3.8 x10 3/uL) 1.24 Lenoir # (Auto) (0.1 - 0.8 x10 3/uL) 0.65 Eos # (Auto) (0.0 - 0.2 x10 3/uL) 0.43 H Baso # (Auto) (0.0 - 0.2 x10 3/uL) 0.03 Abs Immat Gran (auto) (0.00 - 0.03 x10 3/uL) 0.06 H Add Manual Diff NO Immature Gran % (0.0 - 2.0 %) 0.7 Nucleated RBC % (0 - 0 %) 0.0 Nucleated RBCs # (Man) (0.0 - 0.1 x10 3/uL) 0.00 Laboratory Tests: 09/07 09/07 09/07 09/07 09/07 1554 1137 1127 0618 0510 Chemistry Creatinine (0.6 - 1.3 mg/dL) 1.4 H POC Glucose (70 - 110 MG/DL) 112 H 51 L 42 L 135 H Hematology Hgb (12.5 - 16.9 [...] 1739 Occult Blood - COMP STOOL Recent Impressions:RADIOLOGY - XR ABDOMEN 1V (KUB) 09/04 1648 Report Impression - Status: SIGNED Entered: 09/04/2022 1757 IMPRESSION: Benign appearance of the abdomen.Impression By: [email or web address] - Roger Parra M.D.ULTRASOUND - [facility]/LTD 09/05 1146 Report Impression - Status: SIGNED Entered: 09/05/2022 1333 IMPRESSION: 1. No evidence of deep vein thrombosis. 2. Complex heterogeneous hypoechoic fluid collection in the left calf region measuring 8.4 x 2.8 x 2.5 cm; there is no internal vascularity or peripheral hyperemia. May represent a hematoma.Impression By: [email or web address] - Mert Ga M.D.RADIOLOGY - XR CHEST 1 V 09/05 1432 Report Impression - Status: SIGNED Entered: 09/05/2022 1515 IMPRESSION: Minimal bibasilar pulmonary opacitiesImpression By: TipTDO Cr Mares M.D. Laboratory Tests: 09/04 09/04 09/04 09/04 09/04 [...] COLB STOOL 1.Diabetes mellitus type 2 uncontrolled complications.2. Status post right BKA3. Status post gangrene of the right foot.4. Sepsis5. Prostate abscess.6. AnemiaBlood sugar 167-68 mg/dL.H/H 8.11/17.Adjust insulin dose.PT and OT. at 1803 RPT #:[id number] OF REPORTPRProgress [id number]:02:00G.[id number] able for patient rhqrWPCKWTTKELRZOW0436-57-73J99:04:10 [facility] 2022-09-12 09:52:00 [id number] zuRwDUQ8qW+O+dn86nZC8WPurA0Nm yeDW/08sbMPHf1FLSLGK6Ekx5So9848-10-63J58:52:00 [facility] HospitalHospitalist Progress NoteREPORT#:[id number] REPORT STATUS: SignedDATE:09/12/22 TIME: 951 PATIENT: KARMA ROWLAND UNIT #: [id number]#: [id number] [address] [birth year] AGE: 56 SEX: M ATTEND: Mj Vences MDADM AUTHOR: Wilbert Ramires MD * ALL edits or amendments must be made on the electronic/computer document * See AddendumSubjectiveChief complaint:admitted to rehab. participating with therapy Review of SystemsAll systems rev neg: except as noted Objective GeneralVS/I O:Vital Signs: Date Time Temp Pulse Resp B/P B/P Pulse O2 O2 Flow FiO2 Mean Ox Delivery Rate 09/12 0647 [...] Urine 850 375 PATIENT WEIGHT: Weight (lb): 165Weight (oz): 5.55Weight (kg): 75.000 Medications:Active Meds + DC'd Last 24 HrsHydromorphone HCl (DILAUDID) 0.5 MG DAILY PRN PRN IV Vancomycin HCl (VANCOMYCIN HCL) 500 MG ONCE ONE IV (DC) Sodium Chloride (SODIUM CHLORIDE 0.9% 100 ML) 100 MLCefepime HCl (MAXIPIME) 1 GM Q8H IV Sodium Chloride (SODIUM CHLORIDE) 10 MLGabapentin (NEURONTIN) 100 MG Q8HR PO Hydromorphone HCl (DILAUDID) 0.5 MG Q12H PRN PRN IV (DC) Oxycodone/Acetaminophen (PERCOCET 5/325MG TAB) 2 TAB Q4H PRN PRN PO Ferric Sodium Gluconate Complex (FERRLECIT) 125 MG DAILY IV Sodium Chloride (SODIUM CHLORIDE 0.9%) 100 MLFolic Acid (FOLIC ACID) 2 MG DAILY PO Multivitamins (TAB-A-MOHAN) 1 TAB DAILY PO Carvedilol (COREG) 12.5 MG C BK DIN PO Insulin Glargine (Semglee) 5 UNIT BEDTIME SUBQ Furosemide (LASIX 20MG INJ) 20 MG BLOOD-DOSE BETWEEN IV (CKD) Sodium Chloride (SODIUM CHLORIDE) 10 ML ASDIR IV Furosemide (LASIX) 20 MG DAILY PO (DC) Pantoprazole Sodium (PROTONIX) 40 MG Q12HR IV Polyethylene Glycol (MIRALAX) 17 GM DAILY PO Sennosides (Senna Lax 8.6 MG TABLET) 8.6 MG DAILY PO Sodium Chloride (SODIUM CHLORIDE) 10 ML ASDIR PRN IV Amitriptyline HCl (ELAVIL) 25 MG BEDTIME PO Zinc Oxide (ZINC OXIDE 30 GM OINTMENT) 1 APPLIC DAILY TOPICAL Sterile Water (WATER FOR IRRIGATION) DRESSING CHANGE ASDIR PRN IRR Insulin Human Lispro (HUMALOG) 0 AC HS SUBQ Dextrose/Water (DEXTROSE 10% IN WATER) 125 ML ASDIR PRN IV (CKD) Dextrose/Water (DEXTROSE 10% IN WATER) 250 ML ASDIR PRN IV (CKD) Glucagon (GLUCAGON) 1 MG ASDIR PRN IM Lidocaine (LIDODERM) 1 PATCH DAILY TOPICAL Insulin Human Lispro (HUMALOG) 5 UNIT AC SUBQ Miscellaneous Information (VANCOMYCIN PHARMACY TO DOSE) 1 EACH ASDIR IV (CKD) Heparin Sodium (HEPARIN 5000 UNITS/ML) 5,000 UNIT Q8HR SUBQ Acetaminophen (TYLENOL) 650 MG Q6H PRN PRN PO Bisacodyl (DULCOLAX) 10 MG DAILY PRN PRN RECTAL Docusate Sodium (COLACE) 100 MG Q12H PRN PRN PO Hydralazine HCl (APRESOLINE) 10 MG Q6H PRN PRN IV Ondansetron HCl (ZOFRAN) 4 MG Q6H PRN PRN IV Physical ExamGeneral appearance: alert, awake, orientedHead/Eyes: atraumatic, clear corneaNeck: full range of motion, non-tenderCardiovascular: normal capillary refill, normal heart sounds, regular rate rhythmRespiratory: aerating well, clear to auscultationAbdomen: non-tender, normal bowel soundsGenitourinary: no flank painExtremities: moves all, normal capillary refillMusculoskeletal: normal inspection, painless range of motionNeuro/DIRECTOR OPERATING ROOM: alert, oriented X 3, 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 Considered stroke alert: noSkin: dry, intactPsychiatry: normal affect, normal judgment/insight ResultsFindings/Data:Laboratory Tests 09/12 09/12 09/11 09/11 09/11 0604 [...] % (Auto) (14.0 - 32.0 %) 15.0 Lenoir % (Auto) (4.8 - 9.0 %) 7.9 Eos % (Auto) (0.3 - 3.7 %) 3.8 H Baso % (Auto) (0.0 - 2.0 %) 0.3 Neut # (Auto) (2.0 - 7.6 x10 3/uL) 6.34 Lymph # (Auto) (1.0 - 3.8 x10 3/uL) 1.31 [place] # (Auto) (0.1 - 0.8 x10 3/uL) 0.69 Eos # (Auto) (0.0 - 0.2 x10 3/uL) 0.33 H Baso # (Auto) (0.0 - 0.2 x10 3/uL) 0.03 Abs Immat Gran (auto) (0.00 - 0.03 x10 3/uL) 0.06 H Add Manual Diff NO Immature Gran % (0.0 - 2.0 %) 0.7 Nucleated RBC % (0 - 0 %) 0.0 Nucleated RBCs # (Man) (0.0 - 0.1 x10 3/uL) 0.00 Laboratory Tests 09/11 09/11 2130 1445 Toxicology Random Vancomycin (mcg/mL) 16.7 18.3 Diagnosis, Assessment PlanConsultants: cardiology, endocrinology, hospitalist, infectious disease, podiatry Free Text DxA P NotesFree text DxA P notes:Gangrene of right foot s/p Below- knee amputation Prostate abscessMRSA bacteremiaHx of Diabetes, Diabetic neuropathyHTNAKI PLANS: Continue with PT/OT per primary Fall precautionsNutritional supportfall precautionsbowel regimenWound care as directedHepain PPXContinue with supportive / care follow hgb closely and transfuse as neededlabs noted. watch HgbIV ironBP improving. cntinue to adjust BP meds depending on trendsnoted worsening renal function. renal followingcheck urine eosinophils - vanco held. on Cefepimetrend renal function closelypain control at 0955 Addendum 1: 09/12/22 1058 by Wilbert Ramires MD noted LLE swelling (not new) and low albumin. may benefit from albumin infusion + Lasix CXR and Echo per cardiology gentle diuresis per cardio and renal at 1059 RPT #:[id number] OF REPORTPRProgress [id number]:52:00G.[id number] able for patient iqonROBIJCUXHUPKKG7619-90-58J82:55:30 [facility] 2022-09-12 09:19:00 [id number] 2Tu0lPPluGXDl+BgFxpDdMdOlV01d Gl0kQDuyd+apQ1oVptQFpXkR4f70358-04-57R46:19:00 [facility] ([facility])Rehab Progress NoteREPORT#:[id number] REPORT STATUS: SignedDATE:09/12/22 TIME: 918 PATIENT: KARMA ROWLAND UNIT #: [id number]#: [id number] [place] [facility] [place]DOB: [birth year] AGE: 56 SEX: M ATTEND: Mj Vences MDADM AUTHOR: Mj Vences MD * ALL edits or amendments must be made on the electronic/computer document * SubjectiveChief complaint:Rehab follow-upDoing wellPatient worried about edemaEating 75-100% at bedside+ BMDenies DICKENS/N/V/D/CP14 systems reviewed and neg. except that above.History of present illness:56 yo HAM with long h/o DM, and HTN who was admitted for fever, flulike symptomsand altered mental status on 08/18. He was doing well until about 3 days prior toadmission when he noted blister to have formed on the dorsum of his foot. His foot started progressively getting more swollen and the blisters started enlarging and extending to his lateral foot and ankle. He started feeling weak and nauseated. He was noted to have altered mentation and was brought to our ER.He was noted to be in DKA with Blood sugars greater than 600. He was seen by podiatry and surgery for BLE wounds and infection. He was treated in ICU for sepsis and DKA. He underwent incisional and excisional debridement of right footand right ankle by podiatry. Patient also found to have prostate abscess underwent transrectal ultrasound aspiration of abscess and transurethral resection of prostate and unroofing of abscess by urology Dr. Du. Endocrinology treated the DKA and blood sugars much improved. Patient's right foot was not salvageable and patient underwent right BKA by Dr. LEROY on 08/28. Patient blood cultures showed MRSA. Patient continued on antibiotics as per ID. MRI of the pelvis and foot completed. Patient required multiple PRBCs for anemia. Patient was found to have a possible small hematoma of the left calf onultrasound. He complains of pain and swelling of the left ankle. Patient hemodynamically stable and plans are to be transferred to stepdown unit. He is on heparin subcu for VTE. After surgery he is now being mobilized by PT and OT.He is wearing a maxine-tech orthotic for right knee/BKA protection. Prior to admission the patient was independent living in a single-story house with his spouse with a few steps up to front and back door. 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 is at bedside. Patient denies nausea, vomiting, fever, chills, chest pain, shortness of breath with dizziness. He is requiring IV Dilaudid for pain control. Mental status back to baseline. Pt is progressing slowly with therapy d/t weakness and pain, self care deficit, decreased endurance and balance, and decreased functional mobility. Pt requiring acute inpt rehab for multidisciplinary team of nursing, therapy, and physicians. Pt iswilling and able to partici- kathleen in 3 hr/day inpt rehab to d/c home safely. Pt's prior level of function was independent. Objective GeneralVS:Vital Signs: Date Time Temp Pulse Resp B/P B/P Pulse O2 O2 Flow FiO2 Mean Ox Delivery Rate 09/12 0647 97.9 83 17 136/76 96.2 95 Room air 09/11 2339 98.1 82 14 113/62 78.7 97 09/11 1841 97.7 82 18 151/80 103.5 95 Room air 09/11 1531 98.1 74 18 145/76 99.3 96 Room air 09/11 1144 83 162/79 106.3 PATIENT WEIGHT: Weight (lb): 165Weight (oz): 5.55Weight (kg): 75.000 Medications:Active Meds + DC'd Last 24 HrsHydromorphone HCl (DILAUDID) 0.5 MG DAILY PRN PRN IV Vancomycin HCl (VANCOMYCIN HCL) 500 MG ONCE ONE IV (DC) Sodium Chloride (SODIUM CHLORIDE 0.9% 100 ML) 100 MLCefepime HCl (MAXIPIME) 1 GM Q8H IV Sodium Chloride (SODIUM CHLORIDE) 10 MLGabapentin (NEURONTIN) 100 MG Q8HR PO Hydromorphone HCl (DILAUDID) 0.5 MG Q12H PRN PRN IV (DC) Oxycodone/Acetaminophen (PERCOCET 5/325MG TAB) 2 TAB Q4H PRN PRN PO Ferric Sodium Gluconate Complex (FERRLECIT) 125 MG DAILY IV Sodium Chloride (SODIUM CHLORIDE 0.9%) 100 MLFolic Acid (FOLIC ACID) 2 MG DAILY PO Multivitamins (TAB-A-MOHAN) 1 TAB DAILY PO Carvedilol (COREG) 12.5 MG C BK DIN PO Insulin Glargine (Semglee) 5 UNIT BEDTIME SUBQ Furosemide (LASIX 20MG INJ) 20 MG BLOOD-DOSE BETWEEN IV (CKD) Sodium Chloride (SODIUM CHLORIDE) 10 ML ASDIR IV Furosemide (LASIX) 20 MG DAILY PO (DC) Pantoprazole Sodium (PROTONIX) 40 MG Q12HR IV Polyethylene Glycol (MIRALAX) 17 GM DAILY PO Sennosides (Senna Lax 8.6 MG TABLET) 8.6 MG DAILY PO Sodium Chloride (SODIUM CHLORIDE) 10 ML ASDIR PRN IV Amitriptyline HCl (ELAVIL) 25 MG BEDTIME PO Zinc Oxide (ZINC OXIDE 30 GM OINTMENT) 1 APPLIC DAILY TOPICAL Sterile Water (WATER FOR IRRIGATION) DRESSING CHANGE ASDIR PRN IRR Insulin Human Lispro (HUMALOG) 0 AC HS SUBQ Dextrose/Water (DEXTROSE 10% IN WATER) 125 ML ASDIR PRN IV (CKD) Dextrose/Water (DEXTROSE 10% IN WATER) 250 ML ASDIR PRN IV (CKD) Glucagon (GLUCAGON) 1 MG ASDIR PRN IM Lidocaine (LIDODERM) 1 PATCH DAILY TOPICAL Insulin Human Lispro (HUMALOG) 5 UNIT AC SUBQ Miscellaneous Information (VANCOMYCIN PHARMACY TO DOSE) 1 EACH ASDIR IV (CKD) Heparin Sodium (HEPARIN 5000 UNITS/ML) 5,000 UNIT Q8HR SUBQ Acetaminophen (TYLENOL) 650 MG Q6H PRN PRN PO Bisacodyl (DULCOLAX) 10 MG DAILY PRN PRN RECTAL Docusate Sodium (COLACE) 100 MG Q12H PRN PRN PO Hydralazine HCl (APRESOLINE) 10 MG Q6H PRN PRN IV Ondansetron HCl (ZOFRAN) 4 MG Q6H PRN PRN IV Physical ExamGeneral appearance: alert, awake, no acute distressPsych: alert, normal affect, oriented x 3HEENT: anicteric, sclera clearNeck: supple, no JVDCardiovascular: S1/S2, no murmurRespiratory: aerating well, clear bilaterallyAbdomen: bowel sounds present, non-distended, soft, non-tenderSkin: no rash, R BKA HEALING. L ankle/foot wrapped with kerlixMusculoskeletal - general: Musculoskeletal - general: swelling (LLE, calve NT, homans neg), BUE 5/5, LLE4/5, R hip 3-Neuro/DIRECTOR OPERATING ROOM: alert, oriented X 3, CNII-XII intact ResultsFindings/Data:Laboratory Tests: 09/12 09/12 09/11 09/11 09/11 0604 0420 2130 1933 1532Chemistry Sodium (134 - 147 mEq/L) 134 Potassium [...] MG/DL) 4.4 Magnesium (1.80 - 2.40 mg/dL) 1.86Hematology WBC (4.5 - 11.0 x10 3/uL) 8.8 [...] % (Auto) (14.0 - 32.0 %) 15.0 Lenoir % (Auto) (4.8 - 9.0 %) 7.9 Eos % (Auto) (0.3 - 3.7 %) 3.8 H Baso % (Auto) (0.0 - 2.0 %) 0.3 Neut # (Auto) (2.0 - 7.6 x10 3/uL) 6.34 Lymph # (Auto) (1.0 - 3.8 x10 3/uL) 1.31 Lenoir # (Auto) (0.1 - 0.8 x10 3/uL) 0.69 Eos # (Auto) (0.0 - 0.2 x10 3/uL) 0.33 H Baso # (Auto) (0.0 - 0.2 x10 3/uL) 0.03 Abs Immat Gran (auto) (0.00 - 0.03 0.06 Hx10 3/uL) Add Manual Diff NO Immature Gran % (0.0 - 2.0 %) 0.7 Nucleated RBC % (0 - 0 %) 0.0 Nucleated RBCs # (Man) (0.0 - 0.1 0.00x10 3/uL)Toxicology Random Vancomycin (mcg/mL) 16.7 09/11 09/11 1445 1114 Chemistry POC Glucose (70 - 110 MG/DL) 109 Toxicology Random Vancomycin (mcg/mL) 18.3 Radiology data:Recent Impressions:RADIOLOGY - XR CHEST 1 V 09/05 1432 Report Impression - Status: SIGNED Entered: 09/05/2022 1515 IMPRESSION: Minimal bibasilar pulmonary opacitiesImpression By: Yared Mares M.D.ULTRASOUND - US RETROPERITONEAL COM 09/10 1311 Report Impression - Status: SIGNED Entered: 09/10/2022 1503 IMPRESSION: No acute findings. Impression By: Yared Mares M.D. Diagnosis, Assessment PlanProblem List/A P: 1. Gangrene of right foot 2. Below-knee amputation of right lower extremity 3. MRSA bacteremia 4. Cellulitis of foot, right 5. DKA (diabetic ketoacidosis) 6. Hyperglycemia 7. ERIKA (acute kidney injury) 8. Postoperative pain 9. Acute anemia 10. Prostate abscess 11. Impaired functional mobility, balance, gait, and endurance Free Text A P:Assessment:Severe Gas gangrene right foot and right ankle associated with osteomyelitis andnecrotizing fasciitisS/p surgical debridement and washout4/6: S/p right BKA-Dr. LeryoSignificant impairment in self-care, ADLs and functional mobilityImpaired mobility and gaitAcute postoperative pain right BKADiabetic polyneuropathyDKA, DM 2, poorly controlled, A1c greater than 14PADMRSA bacteremia/sepsis-treated on acuteAKISevere hyponatremia-resolvedHTNAcute on chronic anemia requiring multiple transfusions, possible GI bleedLeft calf hematomaEdema and clinical arthritis left ankleEarly decubitus to left heel/DTI dorsal left midfootProstatic abscess 08/26: S/p transrectal ultrasound aspiration of abscess and transurethral resection of prostate and unroofing of abscessEcho: EF 55-59%, grade 1 diastolic dysfunction09/02: JIMENA negative for vegetationMRSA OF NARES09/08:s/p EGD and colonoscopy. EGD showed mild gastritis. Colonoscopy showed rectal polyp that was resected by snare (tubular adenoma)-repeat colonoscopy in 5 years Plan:-PLOF: Independent with transfers and gait-Amputee rehab program-Continue PT and OT-15/12 rehabilitation nursing care.-Case management for safe discharge planning.-Decubitus prevention-Early decubitus to left heel/DTI dorsal left midfoot-zinc oxide to the foot, foam, offloading, podiatry managing-DVT prophylaxis-subcutaneous heparin-Strict fall and safety precautions-Work on bed mobility, transfer training, ADLs, pre-gait and gait exercises-Increase endurance and strength-Monitor pain with therapies-OOB to chair-Monitor p.o. intake and nutrition, albumin 1.3, prealbumin less than 5, dietaryconsultation, protein supplements to promote kkrilsh-Wcparyma-L9m 14, tight glycemia control- endocrine on board, insulin adjustments-Endocrinology, ID, podiatry, cardiology, IM consulted-Pain management adjusting pain medications-Anemia, patient required multiple units of PRBCs on acute, FOBT positive-IV Protonix-consult GI-serial H H-no evidence of gross bleeding-discussed with Dr. TrinidadQxpmwuvp-Ahfddgwuwdtp-ajbaherko dmohrafg-TKC-gplfst-CW Senokot and MiraLAX, DSP-Right FIB-thivtbe-mgpmcvue resolved, dressings changed cdfkt-yphdscn-jukmnvbv GIT-WQRJ-HZBE OF NARES on Bactroban protocol-LLE edema-venous Doppler with complex heterogeneous hypoechoic fluid collectionin the left calf region measuring 8.4, 2.8, 2.5 cm suggestive of hematoma. On low-dose Lasix. Joan wrap LLE-LE edema could be related to hypoalbuminemia leading to third spacing-edema improving-Generalized edema-some shortness of breath and abdominal distention-cardiology gave a dose of IV Lasix-monitor urine output, daily weights-SOB resolved-09/05-venous Doppler of LLE-negative for DVT-Joan wrap dressing and elevation-Chest x-ray with minimal basilar pulmonary qqdngbkcx-Lxhzys-lwhlyqfhbr 8.3, 7.7, transfused 2 units of PRBC on 09/05-09/08: s/p EGD and colonoscopy. EGD showed mild gastritis. Colonoscopy showed rectal polyp that was resected by snare. Anemia likely secondary to chronic kidney disease. Consult renal.-Pathology of polyp came back as tubular adenoma. recommend repeating colonoscopy in 5 years as per GI-Consider video capsule endoscopy as outpt if evidence of dropping H/H-Chemistries good, creatinine 2.0, 2.4, magnesium normal-Renal ultrasound negative-09/12/2022 laboratory this morning showed sodium 134, potassium 4.2, CO2 20, BUN31, creatinine 2.4 continues to worsen, discussed with ID, AIN is probably the etiology of the unexplained deterioration of his renal function, antibiotics to be adjusted by infectious disease, will give Solu-Medrol 125 mg IV daily for 3 days. Significant lower extremity edema, will start Lasix 20 mg p.o. twice daily-as per renal-Continue antibiotics per ID-on cefepime and vancomycin until 09/24 for treatment of prostatic abscess-Camarena as per -Noted LLE swelling (not new) and low albumin. may benefit from albumin infusion+ Lasix-CXR, BNP and Echo per cardiology gentle diuresis per cardio and renal-Advance therapies as tolerated-discussed treatment plan with patient and -Patient progressing with therapies, requires multiple rest breaks. Some back pain improved with pain medications. Mild dizziness and blood pressure 162/79 with no increase in symptoms during sessions. Patient making steady progress towards goals. Progress: PT PARTCIPATED IN 90' OF SKILLED PT TODAY. PT EDUCATED ON RLE NWB STATUS, POSTURE, AND SAFETY PRECAUTIONS TO INCREASE AWARENESS THROUGHOUT SESSION. PT PROPELLED W/C WITH B/L UE, SPV, 160 FEET, 40 FEET, 220, 100 FEET, and 60 FEET. PT PERFORMED SEATED W/C PUSHUPS (5 REPS X2), HIP ADDWITH BALL (10 REPS X2, 3"), AND HIP ABD (10 REPS X2, 3" WITH GREEN THERABAND). PM RPlease see team note.Plan and goals discussed with the patient. I agree with the teams findingELOS- [09/19]DC-Home with -Home healthDME-bedside commode, sliding board, wheelchair, Total time 33 minutes greater than 50% of the time spent examining patient, discussing with patient and about work-up for edema, medical issues, anemia, GI recommendations, amputee rehab plan of care, goals, therapies, progress, labs, medications. EMR and MAR is reviewed. All questions answeredConsultants: cardiology, endocrinology, hospitalist, infectious disease, podiatryRehab attestation:Face to face exam completed. Treatment plan discussed with patient. Meets continued stay criteria. Agree with interdisciplinary treatment plan. at 1324 RPT #:[id number] OF REPORTPRProgress [id number]:19:00G.[id number] able for patient oslfJXVYEISNYRNTOU9028-47-46E99:24:32 [facility] 2022-09-12 09:16:00 [id number] twiSXtytNmFKTH9FSqS7tGv5G+MQC VpkPwmyWz9tLUVUjKQj/RnuAOUX9206-19-72Z67:16:00 [facility] ([facility])Cardiology Progress NoteREPORT#:[id number] REPORT STATUS: SignedDATE:09/12/22 TIME: 915 PATIENT: KARMA ROWLAND UNIT #: [id number]#: [id number] [address] AGE: 56 SEX: M ATTEND: Mj Vences MDADM AUTHOR: Rohit Benitez RESEARCH MANUFACTURING OPERATOR * ALL edits or amendments must be made on the electronic/computer document * Rohit Benitez 09/12/22 0916:SubjectiveChief complaint:weakness Free Text Subj NotesFree Text Subj Notes:Patient seen and evaluated. Overall feeling well, denies chest pain or shortness of breath. Objective GeneralVS/I O:24 hour I O ending at 0700: 09/12 0700 09/11 1900 Intake Total 100.00 960 Output Total 850 375 Balance -750.00 585 Intake, IV 100.00 Intake, Oral 960 Number 0 0 Incontinent Voids Number Voids 0 0 Output, Urine 850 375 Vital Signs: Date Time Temp Pulse Resp B/P B/P Pulse O2 O2 Flow FiO2 Mean Ox Delivery Rate 09/12 0647 97.9 83 17 136/76 96.2 95 Room air 09/11 2339 98.1 82 14 113/62 78.7 97 09/11 1841 97.7 82 18 151/80 103.5 95 Room air 09/11 1531 98.1 74 18 145/76 99.3 96 Room air 09/11 1144 83 162/79 106.3 PATIENT WEIGHT: Weight (lb): 165Weight (oz): 5.55Weight (kg): 75.000 Medications:Active Meds + DC'd Last 24 HrsHydromorphone HCl (DILAUDID) 0.5 MG DAILY PRN PRN IV Vancomycin HCl (VANCOMYCIN HCL) 500 MG ONCE ONE IV (DC) Sodium Chloride (SODIUM CHLORIDE 0.9% 100 ML) 100 MLCefepime HCl (MAXIPIME) 1 GM Q8H IV Sodium Chloride (SODIUM CHLORIDE) 10 MLGabapentin (NEURONTIN) 100 MG Q8HR PO Hydromorphone HCl (DILAUDID) 0.5 MG Q12H PRN PRN IV (DC) Oxycodone/Acetaminophen (PERCOCET 5/325MG TAB) 2 TAB Q4H PRN PRN PO Ferric Sodium Gluconate Complex (FERRLECIT) 125 MG DAILY IV Sodium Chloride (SODIUM CHLORIDE 0.9%) 100 MLFolic Acid (FOLIC ACID) 2 MG DAILY PO Multivitamins (TAB-A-MOHAN) 1 TAB DAILY PO Carvedilol (COREG) 12.5 MG C BK DIN PO Insulin Glargine (Semglee) 5 UNIT BEDTIME SUBQ Furosemide (LASIX 20MG INJ) 20 MG BLOOD-DOSE BETWEEN IV (CKD) Sodium Chloride (SODIUM CHLORIDE) 10 ML ASDIR IV Furosemide (LASIX) 20 MG DAILY PO (DC) Pantoprazole Sodium (PROTONIX) 40 MG Q12HR IV Polyethylene Glycol (MIRALAX) 17 GM DAILY PO Sennosides (Senna Lax 8.6 MG TABLET) 8.6 MG DAILY PO Sodium Chloride (SODIUM CHLORIDE) 10 ML ASDIR PRN IV Amitriptyline HCl (ELAVIL) 25 MG BEDTIME PO Zinc Oxide (ZINC OXIDE 30 GM OINTMENT) 1 APPLIC DAILY TOPICAL Sterile Water (WATER FOR IRRIGATION) DRESSING CHANGE ASDIR PRN IRR Insulin Human Lispro (HUMALOG) 0 AC HS SUBQ Dextrose/Water (DEXTROSE 10% IN WATER) 125 ML ASDIR PRN IV (CKD) Dextrose/Water (DEXTROSE 10% IN WATER) 250 ML ASDIR PRN IV (CKD) Glucagon (GLUCAGON) 1 MG ASDIR PRN IM Lidocaine (LIDODERM) 1 PATCH DAILY TOPICAL Insulin Human Lispro (HUMALOG) 5 UNIT AC SUBQ Miscellaneous Information (VANCOMYCIN PHARMACY TO DOSE) 1 EACH ASDIR IV (CKD) Heparin Sodium (HEPARIN 5000 UNITS/ML) 5,000 UNIT Q8HR SUBQ Acetaminophen (TYLENOL) 650 MG Q6H PRN PRN PO Bisacodyl (DULCOLAX) 10 MG DAILY PRN PRN RECTAL Docusate Sodium (COLACE) 100 MG Q12H PRN PRN PO Hydralazine HCl (APRESOLINE) 10 MG Q6H PRN PRN IV Ondansetron HCl (ZOFRAN) 4 MG Q6H PRN PRN IV Physical ExamGeneral appearance: alert, awake, orientedNeck: no bruit/NL carotids, no JVDCardiovascular: CV assessment: regular rate and rhythm, no ectopy, no gallopRespiratory: clear to auscultation, no distressAbdomen: soft, non-tenderLower extremity: LE assessment: edema, normal temperatureNeuro/DIRECTOR OPERATING ROOM: alert, oriented X 3 Considered stroke alert: noWound/incision: Location:right bkaPsychiatry: normal affect, normal judgment/insight, normal mood ResultsFindings/Data:Laboratory Tests 09/12 09/12 09/11 09/11 09/11 0604 [...] % (Auto) (14.0 - 32.0 %) 15.0 Lenoir % (Auto) (4.8 - 9.0 %) 7.9 Eos % (Auto) (0.3 - 3.7 %) 3.8 H Baso % (Auto) (0.0 - 2.0 %) 0.3 Neut # (Auto) (2.0 - 7.6 x10 3/uL) 6.34 Lymph # (Auto) (1.0 - 3.8 x10 3/uL) 1.31 Lenoir # (Auto) (0.1 - 0.8 x10 3/uL) 0.69 Eos # (Auto) (0.0 - 0.2 x10 3/uL) 0.33 H Baso # (Auto) (0.0 - 0.2 x10 3/uL) 0.03 Abs Immat Gran (auto) (0.00 - 0.03 x10 3/uL) 0.06 H Add Manual Diff NO Immature Gran % (0.0 - 2.0 %) 0.7 Nucleated RBC % (0 - 0 %) 0.0 Nucleated RBCs # (Man) (0.0 - 0.1 x10 3/uL) 0.00 Laboratory Tests 09/11 09/11 2130 1445 Toxicology Random Vancomycin (mcg/mL) 16.7 18.3 Laboratory Tests 09/12 0420 Chemistry Magnesium (1.80 - 2.40 mg/dL) 1.86 Diagnosis, Assessment PlanConsultants: cardiology, endocrinology, hospitalist, infectious disease, podiatry Free Text DxA P NotesFree Text DxA P Notes:Impression: 1. Debility2. Infected right foot status post BKA3. Bacteremia4. Diabetes5. Hypertension 6. Anemia 07/2022: Echocardiogram with normal LVEF, grade 1 diastolic dysfunction, mildly dilated LA, and no significant valvular abnormalities Recommendation: Patient initially presented with DKA and sepsis. Diagnosed with right foot infection, underwent I D, now status post BKA. Patient had persistent bacteremia with MRSA, underwent JIMENA with negative findings of endocarditis. Patient now transferred to rehab for physical therapy. Known cardiac history ofhypertension and hyperlipidemia. Vital signs stable. Echocardiogram with normal LVEF, grade 1 diastolic dysfunction, mildly dilated LA, and no significant valvular abnormalities. Continue to monitor blood pressure trend. Continue wound care and IV antibiotic therapy. Continue PT/OT. Supportive care. 09/04: Patient complaining of shortness of breath, abdominal distention and lowerextremity edema. Renal function and electrolytes stable. Will give one-time dose of IV Lasix 40 mg. Blood pressure stable. Pending abdominal x-ray. Monitor intake and output. Check BMP in the morning. Supportive care. Plan ofcare discussed with patient, RN and Dr. Parham. 09/05: Patient responded well to IV Lasix, good urine output and improvement in shortness of breath. Chest x-ray ordered. Currently on Lasix 20 mg p.o. daily. Continue monitor renal function and electrolytes. Pending lower extremity Doppler for lower extremity edema. Continue PT/OT. Supportive care. Plan of care discussed with patient, RN and Dr. Parham. 09/08: Blood pressure has been elevated, started on Coreg 3.125 mg twice daily. Continue monitor blood pressure trend and adjust medication as needed. Still having left lower extremity edema, venous Doppler negative for DVT. continue gentle diuresis with Lasix 20 mg p.o. daily. Recommend Joan wrap. Patient remains anemic, plan for EGD/colonoscopy today. Supportive care. Plan of care discussed with patient, family, RN and Dr. Parham. 09/09: Patient doing well status post EGD/colonoscopy, negative findings for GI bleed. Blood pressure improving, increased on Coreg to 12.5 mg twice daily. Elevated creatinine noted, nephrology following. No new cardiac complaint. Continue wound care. Continue PT/OT. Supportive care. Plan of care discussed with patient, RN and Dr. Parham. 09/10: Blood pressure remained stable on current regimen of Coreg. Patient continue to have left lower extremity edema. Currently on Lasix 20 mg daily. Creatinine 1.9 today, continue to monitor. Patient's albumin level was 1.3, it is possible that patient's lower extremity edema could be related to hypoalbuminemia leading to third spacing. Continue PT/OT. Supportive care. Plan of care discussed with patient, RN and Dr. Parham. 09/11: Patient doing well from cardiac standpoint. Blood pressure well controlled. Improvement in lower extremity edema with elevating leg while in bed. Creatinine 2.0 today. Denies shortness of breath. Will hold diuretic for now and monitor renal function. Supportive care. Plan of care discussed with patient, RN and Dr. Parham. 09/12: Creatinine remains elevated at 2.4 today, antibiotic regimen also being adjusted. Patient still with lower extremity edema and rales on physical examination. Will check chest x-ray and limited echocardiogram for further evaluation. Check BNP. Continue hold diuretic for now. Supportive care. Planof care discussed with patient, RN and Dr. Parham. Napoleon Parham 09/13/22 2998:Diagnosis, Assessment PlanAdditional comments:Patient was seen and examined at bedside, agree with above assessment and plan as documented by nurse practitioner. Discussed with patient, and primary team, will follow. at 1605 at 1502 RPT #:[id number] OF REPORTPRProgress [id number]:16:00G.[id number] able for patient fcijUEQNINXYSXOOFK4881-02-51G64:06:03 [facility] 2022-09-12 09:11:00 [id number]/Kjwpn oroOL1IKjm38Cu3UquefR9DMGdx3875-28-65E08:11:00 [facility] Progress NoteREPORT#:[id number] REPORT STATUS: SignedDATE:09/12/22 TIME: 0911 PATIENT: KARMA ROWLAND UNIT #: [id number]#: [id number] [address] [birth year] AGE: 56 SEX: M ATTEND: Mj Vences MDADM AUTHOR: Kassie Avitia MD * ALL edits or amendments must be made on the electronic/computer document * SubjectiveHPI:Patient is a 56-year-old male with history of diabetes mellitus type 2 and hypertension who was initially admitted for altered mental status and right-sided foot infection. 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 The patient is anemic with current Hgb 7.1. He has received a total of 3 units pRBCs during this hospitalization. KUB on 09/04 was negative for acute GI process. The patient denies overt GIB, dark tarry stools, nausea, abdominal pain, or vomiting. He has never had EGD orcolonoscopy. 09/06: No complaints today. Hemoglobin stable. No overt GI bleed. Plan for colonoscopy and endoscopy on Thursday 09/07: No complaints today. No overt GI bleed. Planning for colonoscopy and endoscopy tomorrow 09/08: EGD mild gastritis. colonoscopy rectal polyp s/p snare. No other abnormalities 09/09: doing well. Seen at the gym. No bleeding. 09/10: Doing well. No bleeding. tolerating diet. Movig bowels 09/11: doing well. States his leg swelling is better. Tolerating diet. having normal BM 09/12: dooing well. doing work-out at the gym. Tolerating diet. Normal BMs. Stable H/H Objective Physical ExamHEENT: atraumatic, normocephalicNeck: full range of motion, non-tenderRespiratory: symmetric expansion, no distressAbdomen: non-tender, normal bowel sounds, soft, no distention, no guardingExtremities: right BKA Considered stroke alert: noSkin: dry Diagnosis, Assessment PlanFree Text A P:1. Positive FOBT-and anemia: The patient denies overt GIB, dark tarry stools, nausea, abdominal pain, or vomiting. He is not on anticoagulation therapy.-Continue PPI. The patient has never had EGD or colonoscopy prior to this admissions/p EGD and colonoscopy. EGD showed mild gastritis. Colonoscopy showed rectal polyp that was resected by snare. no evidence of bleeding. Pathology of polyp came back as tubular adenoma. recommend repeating colonoscopy in 5 years Anemia likely secondary to chronic kidney disease.Can consider video capsule endoscopy as outpt if evidence of dropping H/HWill follow along Consultants: cardiology, endocrinology, hospitalist, infectious disease, podiatry at 0913 RPT #:[id number] OF REPORTPRProgress [id number]:11:00G.[id number] able for patient szvtXQAOPNOWYTRUQK0429-49-38W61:13:31 [facility] 2022-09-12 08:35:00 [id number]/kCr3KUO fMVKvumoSrUFytyqdIRjYGrd2qc3421-52-86E98:35:00 [facility] ([facility])Infectious Dis. Progress NoteREPORT#:[id number] REPORT STATUS: SignedDATE:09/12/22 TIME: 0835 PATIENT: KARMA ROWLAND UNIT #: [id number]#: [id number] [address] [birth year] AGE: 56 SEX: M ATTEND: RuMj Bandar [facility] AUTHOR: Merry Wolff MD * ALL edits or amendments must be made on the electronic/computer document * SubjectiveHPI:PT is a 56yr old male with history of diabetes mellitus type 2, hypertension whowas admitted with altered mental status and right-sided foot infection. According to him, he noticed a blister on his right foot around 3 days prior to presentation. His foot got progressively more swollen and erythema extended proximally to his lateral foot and ankle. CT abdomen and pelvis with contrast is concerning for possible prostate abscess. CT of lower extremity without contrast shows extensive soft tissue edema with mottled gas in the subcutaneous and intramuscular compartments of the foot, compatible with gas-forming infection. Patient's blood cultures have come back positive for MRSA in 2 out of 2 sets. PT has had persistent (+)Ve cx for MRSA 08/18- 08/22. He underwent a debridement of his foot on 08/19 and cx grew MRSA. PT was started on Vancomycin and clindamycin on 08/18. His MRI showed a prostate abscess. 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 Pt underwent a transrectal aspiration and unroofing of prostate abscess 08/26 and cx grew Citrobacter, Enterococcus, MRSA. He also hada BKA of right leg 08/28. JIMENA done 09/02. Pt was transferred to Rehab on 09/02. 09/11 doing well, no fever, no chills09/12 doing well, working with PT in Business[employer]itePatient reports:No: cough, diarrhea, fever, headache, nausea, shortness of breath, vomiting. Portions of this section were scribed by Jill Quintero on 09/12/22 at 1209 Objective GeneralVS/I O:Vital SignsDate Temp Pulse Resp B/P B/P Mean Pulse Ox SqK096/20-09/12 97.7-98.1 74-83 14-18 113-162/62-80 78.7-106.3 95-97 Last Documented: Result Date Time Pulse Ox 95 09/12 0647 B/P 136/76 09/12 0647 B/P Mean 96.2 09/12 0647 O2 Delivery Room air 09/12 0647 Temp 97.9 09/12 0647 Pulse 83 09/12 0647 Resp 17 09/12 0647 O2 Flow Rate 2 09/08 1322 Vital Signs: Date Time Temp Pulse Resp B/P B/P Pulse O2 O2 Flow FiO2 Mean Ox Delivery Rate 09/12 0647 [...] Urine 850 375 PATIENT WEIGHT: Weight (lb): 165Weight (oz): 5.55Weight (kg): 75.000 Antibiotic start date:Antibiotic: vancomycinStart Date:09/03 Antibiotic: daptomycin Start Date:08/28-09/03 Antibiotic: cefepime Start Date:09/01- Antibiotic: merremStart Date:08/27-09/01 Physical ExamGeneral appearance: alert, awake, orientedHead/Eyes: atraumatic, clear cornea, EOMI, normal conjunctiva/sclera, normal eyelids/periorb, normocephalic, PERRLENT: moist mucosal membranes, normal dentitionNeck: full range of motionCardiovascular: normal heart sounds, regular rate rhythmRespiratory: clear to auscultation, aerating wellAbdomen: non-tender, normal bowel sounds, softExtremities: moves all, right BKA Left foot wound +dressing in placeNeuro/DIRECTOR OPERATING ROOM: alert, oriented X 3 Considered stroke alert: noSkin: dry, intact ResultsFindings/Data:Laboratory Tests 09/12 09/12 09/11 09/11 09/11 0604 [...] % (Auto) (14.0 - 32.0 %) 15.0 Lenoir % (Auto) (4.8 - 9.0 %) 7.9 Eos % (Auto) (0.3 - 3.7 %) 3.8 H Baso % (Auto) (0.0 - 2.0 %) 0.3 Neut # (Auto) (2.0 - 7.6 x10 3/uL) 6.34 Lymph # (Auto) (1.0 - 3.8 x10 3/uL) 1.31 Lenoir # (Auto) (0.1 - 0.8 x10 3/uL) 0.69 Eos # (Auto) (0.0 - 0.2 x10 3/uL) 0.33 H Baso # (Auto) (0.0 - 0.2 x10 3/uL) 0.03 Abs Immat Gran (auto) (0.00 - 0.03 x10 3/uL) 0.06 H Add Manual Diff NO Immature Gran % (0.0 - 2.0 %) 0.7 Nucleated RBC % (0 - 0 %) 0.0 Nucleated RBCs # (Man) (0.0 - 0.1 x10 3/uL) 0.00 Laboratory Tests 09/11 09/11 2130 1445 Toxicology Random Vancomycin (mcg/mL) 16.7 18.3 Portions of this section were scribed by Jill Quintero on 09/12/22 at 0835 Treatment Prophylaxis Treatment ProphylaxisLines: PICCCVC/PICC documentation:The data below has been imported from nursing documentation. Any exceptions have been noted below under Provider comments. CVC/PICC insertion date/time: PICC single lumen Arm upper Right Inserted 09/02/22 1720 Provider comments on imported nursing data: [] Portions of this section were scribed by Jill Quintero on 09/12/22 at 0835 Diagnosis, Assessment PlanFree Text A P:*MRSA bacteremia-Initial blood cultures from 08/18/2022 positive for MRSA in 2 out of 2 sets.-Repeat blood cultures 08/21/2022 are already positive for MRSA in 2 out of 2 sets, suggesting persistent high-grade bacteremia.-TTE 08/18/2022 negative for any obvious vegetations.-08/28 neg-JIMENA 09/02 neg*Prostatic abscess-s/p transrectal aspiration and unroofing on 08/26-cx MRSA, citrobacter (r-cefazolin) Enterococcus raffinosus (S-amp,pcn, vancomycin), bacteriodes*ERIKA-nephrology following; worsening*Hyponatremia*Diabetic neuropathy*Diabetes mellitus type 2*Hypertension*anemia 4/17-cont on Cefepime and vancomycin til 5/3 for treatment of Prostate abscess-follow esr and crp-EGD today 09/09-on cefepime and vancomycin til 5/3 for treatment of prostate abscess 09/10on cefepime and vancomycin til 5/3 for treatment of prostate abscesscheck esr and crp in am 09/11on cefepime and vancomycin til 5/3 for treatment of prostate abscess; if pt is discharge before 09/24 can change to oral abx 09/12on cefepime and vancomycin til 5/3 for treatment of prostate abscess; will change to Merrem 500mg Iv Q12hrs and Daptomycin as creat is worsening Consultants: cardiology, endocrinology, hospitalist, infectious disease, podiatry Portions of this section were scribed by Jill Quintero on 09/12/22 at 1209 at 1621 RPT #:[id number] OF REPORTPRProgress [id number]:35:00G.[id number] able for patient irzyCOSGTPQYLZCHJS0416-78-30W02:22:06 [facility] 2022-09-12 07:08:00 [id number] J/kZ4fNh520vVCi/oY6o3WXcj+VyJ 0TIOqvwe7IgfFAofgKdBZYCwONn8184-47-75Z81:08:00 [facility] ([facility])Pain Management Progress NoteREPORT#:[id number] REPORT STATUS: SignedDATE:09/12/22 TIME: 07 PATIENT: KARMA ROWLAND UNIT #: [id number]#: [id number] [address] [birth year] AGE: 56 SEX: M ATTEND: Mj Vences [facility] AUTHOR: Charlie Quiroga RESEARCH MANUFACTURING OPERATOR * ALL edits or amendments must be made on the electronic/computer document * Charlie Quiroga 09/12/22 0708:SubjectiveChief complaint:Patient seen and examined. Chart/MAR reviewed. Patient had adequate pain control last night. Medications are effective for painwhen needed. No side effects noted at this time. Will continue to wean IV pain medications. Patient being seen for Acute postoperative pain, right foot and anklegangrene, requiring BKA, Constipation Patient is still requiring medications to help with managing currentproblems. Patient is requiring IV narcotics to help manage breakthrough pain No fever/chills, chest pain, orthopnea, nausea/vomiting, pruritus, orhallucinations.14 point ROS undertaken unremarkable except as noted Objective GeneralVS/I O:Vital SignsDate Temp Pulse Resp B/P B/P Mean Pulse Ox LfA987/20-09/12 97.7-98.1 74-83 14-18 113-162/62-80 78.7-106.3 95-97 Last Documented: Result Date Time Pulse Ox 95 09/12 0647 B/P 136/76 09/12 0647 B/P Mean 96.2 09/12 0647 O2 Delivery Room air 09/12 0647 Temp 97.9 09/12 0647 Pulse 83 09/12 0647 Resp 17 09/12 0647 O2 Flow Rate 2 09/08 1322 24 hour I O ending at 0700: 09/12 0700 09/11 1900 Intake Total 100.00 960 Output Total 850 375 Balance -750.00 585 Intake, IV 100.00 Intake, Oral 960 Number 0 0 Incontinent Voids Number Voids 0 0 Output, Urine 850 375 PATIENT WEIGHT: Weight (lb): 165Weight (oz): 5.55Weight (kg): 75.000 Medications:Active Meds + DC'd Last 24 HrsVancomycin HCl (VANCOMYCIN HCL) 500 MG ONCE ONE IV (DC) Sodium Chloride (SODIUM CHLORIDE 0.9% 100 ML) 100 MLCefepime HCl (MAXIPIME) 1 GM Q8H IV Sodium Chloride (SODIUM CHLORIDE) 10 MLGabapentin (NEURONTIN) 100 MG Q8HR PO Hydromorphone HCl (DILAUDID) 0.5 MG Q12H PRN PRN IV Oxycodone/Acetaminophen (PERCOCET 5/325MG TAB) 2 TAB Q4H PRN PRN PO Ferric Sodium Gluconate Complex (FERRLECIT) 125 MG DAILY IV Sodium Chloride (SODIUM CHLORIDE 0.9%) 100 MLFolic Acid (FOLIC ACID) 2 MG DAILY PO Multivitamins (TAB-A-MOHAN) 1 TAB DAILY PO Carvedilol (COREG) 12.5 MG C BK DIN PO Insulin Glargine (Semglee) 5 UNIT BEDTIME SUBQ Furosemide (LASIX 20MG INJ) 20 MG BLOOD-DOSE BETWEEN IV (CKD) Sodium Chloride (SODIUM CHLORIDE) 10 ML ASDIR IV Furosemide (LASIX) 20 MG DAILY PO (DC) Pantoprazole Sodium (PROTONIX) 40 MG Q12HR IV Polyethylene Glycol (MIRALAX) 17 GM DAILY PO Sennosides (Senna Lax 8.6 MG TABLET) 8.6 MG DAILY PO Sodium Chloride (SODIUM CHLORIDE) 10 ML ASDIR PRN IV Amitriptyline HCl (ELAVIL) 25 MG BEDTIME PO Zinc Oxide (ZINC OXIDE 30 GM OINTMENT) 1 APPLIC DAILY TOPICAL Sterile Water (WATER FOR IRRIGATION) DRESSING CHANGE ASDIR PRN IRR Insulin Human Lispro (HUMALOG) 0 AC HS SUBQ Dextrose/Water (DEXTROSE 10% IN WATER) 125 ML ASDIR PRN IV (CKD) Dextrose/Water (DEXTROSE 10% IN WATER) 250 ML ASDIR PRN IV (CKD) Glucagon (GLUCAGON) 1 MG ASDIR PRN IM Lidocaine (LIDODERM) 1 PATCH DAILY TOPICAL Insulin Human Lispro (HUMALOG) 5 UNIT AC SUBQ Miscellaneous Information (VANCOMYCIN PHARMACY TO DOSE) 1 EACH ASDIR IV (CKD) Heparin Sodium (HEPARIN 5000 UNITS/ML) 5,000 UNIT Q8HR SUBQ Acetaminophen (TYLENOL) 650 MG Q6H PRN PRN PO Bisacodyl (DULCOLAX) 10 MG DAILY PRN PRN RECTAL Docusate Sodium (COLACE) 100 MG Q12H PRN PRN PO Hydralazine HCl (APRESOLINE) 10 MG Q6H PRN PRN IV Ondansetron HCl (ZOFRAN) 4 MG Q6H PRN PRN IV Physical ExamGeneral appearance: alert, awake, oriented, pleasantHead/eyes: atraumatic, EOMI, normocephalic, normal conjunctiva/sclera, PERRLAENT: normal ear left, normal ear right, normal nose, normal pharynx, moist mucosal membranesNeck: full range of motion, no lymphadenopathy, supple/no meningismusCardiovascular: regular rate rhythmRespiratory: clear to auscultation, no distress, aerating wellAbdomen: soft, non-tender, no distention, active bowel sounds in all quarants. Abdomen quadrantsLLQ normal bowel sounds, LUQ normal bowel sounds, RLQ normal bowel sounds, RUQ normal bowel soundsExtremities: moves all, no edema, pedal pulsesNeuro/DIRECTOR OPERATING ROOM: 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, no sensory deficits, CNII-XII grossly intact Considered stroke alert: noSkin: normal color, normal turgorPsychiatry: normal affect ResultsFindings/data:Laboratory Tests: 09/12 09/11 09/11 09/11 09/11 0604 2130 1933 1532 1445 Chemistry POC Glucose (70 - 110 MG/DL) 170 H 150 H 93 Toxicology Random Vancomycin (mcg/mL) 16.7 18.3 09/11 1114 Chemistry POC Glucose (70 - 110 MG/DL) 109 Diagnosis, Assessment PlanFree text A P:A/P:Patient is a 56 year old male who presents with: Recent prostate abscess-Status post TURP with unroofing of abscess-IV antibiotics with vancomycin until 09-24-2022 Acute postoperative pain, right foot and ankle gangrene, requiring BKA-Patient is at risk for further amputations or loss of limb due to comorbid conditions-Status post right BKA 08/28/2022-DC Sheldon 10/325 1 tablet p.o. every 4 hours as needed pain scale 4 10-Tylenol 650 mg p.o. every 6 hours as needed pain scale 1 3-reduce Dilaudid 0.5 mg IV daily as needed pain scale 7 10, second line therapy (09/12)-Percocet 10/325mg every 4 hours as needed, pain scale 4-10 (09/10)-Lidoderm patch to left ankle daily-IV antibiotics with vancomycin until 09-24-2022-Local wound care-manageable Diabetic peripheral neuropathy-amitriptyline 25mg PO QHS-Gabapentin 100mg every 8 hours (09/10)-manageable Hypertension-We will monitor hypertension and tachycardia due to pain, and hypotension as well as bradycardia secondary over sedation with narcotics-Hydralazine as needed Elevated LFTs-08/20/22-AST 51, ALT 22-09/03/2022-AST 15, ALT 7-Patient will require close monitoring since he is using narcotics with Tylenol Impaired functional mobility, balance, gait, and endurance-PT/OT Antalgic/Impaired gait-PT/OT-Improve strength, endurance, self-care, gait, balance, ADLs-Fall precautions per unit protocol-Pain medications as outlined above Constipation-We will monitor while utilizing opioid narcotic medications.-Adequate fluid intake also discussed.-Colace 100 mg p.o. twice daily as needed-Dulcolax 10 mg rectally daily as needed-Senna lax 8.6mg daily-Miralax 17gm daily-manageable Disposition: Past Medical History: Prostate abscess, right foot foot and ankle gangrene, diabetes, hypertension, hyperlipidemiaPast Surgical History: TURP, right BKAFamily History: NoncontributorySocial History: Denies tobacco, alcohol, or drug useAllergies: NKDA Patient has failed conservative medical therapy.Patient will require monitoring while utilize narcotic medications for any adverse effects, and will adjust as neededPlan of care discussed with patient and nurseAll diagnostics of last 24 hours been reviewed. Risks versus benefits of opioid medications were reviewed to include, but not limited to respiratory depression, accidental overdose, altered mental status, sudden , constipation which could result in bowel obstruction, seizures, withdrawal, dependency addiction, risk for falls. Case discussed with Dr Ng whom agrees. Thank you for the consultation. [place] DIS[employer] HEARING OFFICER:-database searched, no information found Kingsley Ng 09/30/22 0831:Attestations Physician AttestationAgree w/findings plan:The patient was seen and examined by Charlie Quiroga. I personally saw the patient and developed the care plan, which was continued by the mid-level provider. at 1051 at 0835 [facility] #:[id number] OF REPORTPRProgress [id number]:08:00G.[id number] able for patient vlmdEWUBXYPMDQRMVY8041-19-98T70:51:39 [facility] 2022-09-12 06:09:00 [id number] WwaEf0Kquv9rS70cl7+gaR1yaHlMF tSZsO7CG+vEmwsfWdQ40g+p6kl69179-48-84Q51:09:00 [facility] ([facility]ITALNephrology Progress NoteREPORT#:[id number] REPORT STATUS: SignedDATE:09/12/22 TIME: 0609 PATIENT: KARMA ROWLAND UNIT #: [id number]#: [id number] [address] [birth year] AGE: 56 SEX: M ATTEND: Mj Vences MDADM AUTHOR: Barrera Ramírez MD * ALL edits or amendments must be made on the electronic/computer document * SubjectiveChief complaint:Infected footHPI:Patient seen and evaluated on 09/09/2022, note started, records reviewed and orders placed on 09/08/2022, 56-year-old male with history of diabetes mellitus type 2, hypertension and peripheral vascular disease who was initially admitted to acute care with altered mental status and right foot infection/gangrene, 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 Patient had persistent anemia requiring blood transfusion. His fecal occult blood was positive and his creatinine was 1.2 and increased to 1.4 today, laboratories today showed hemoglobin 8.5, platelet 231, blood count 9.1, sodium 135, potassium 4.6, CO2 22, BUN 22, creatinine 1.4. Renal consult was requested for evaluation management of elevated BUN and creatinine and if his decreased GFR iscontributing to his anemia. Patient reports:Yes: complaints. Comments:Patient seen and evaluated, HPI no change from initial, feels okay. Review of SystemsConstitutional:Reports: fatigue. Denies: chills, fever. Skin:Reports: swelling. Denies: rash. Allergy/Immun:Denies: hives, itching. Eyes:Denies: redness, discharge. ENT:Denies: ear drainage, ear ringing. Respiratory:Denies: hemoptysis, SOB. Cardiovascular:Denies: chest pain. Objective GeneralVS/I O:Vital Signs: Date Time Temp Pulse Resp B/P B/P Pulse O2 O2 Flow FiO2 Mean Ox Delivery Rate 09/11 2339 [...] Urine 850 375 PATIENT WEIGHT: Weight (lb): 165Weight (oz): 5.55Weight (kg): 75.000 MedicationsActive Meds + DC'd Last 24 HrsVancomycin HCl (VANCOMYCIN HCL) 500 MG ONCE ONE IV (DC) Sodium Chloride (SODIUM CHLORIDE 0.9% 100 ML) 100 MLCefepime HCl (MAXIPIME) 1 GM Q8H IV Sodium Chloride (SODIUM CHLORIDE) 10 MLGabapentin (NEURONTIN) 100 MG Q8HR PO Hydromorphone HCl (DILAUDID) 0.5 MG Q12H PRN PRN IV Oxycodone/Acetaminophen (PERCOCET 5/325MG TAB) 2 TAB Q4H PRN PRN PO Ferric Sodium Gluconate Complex (FERRLECIT) 125 MG DAILY IV Sodium Chloride (SODIUM CHLORIDE 0.9%) 100 MLFolic Acid (FOLIC ACID) 2 MG DAILY PO Multivitamins (TAB-A-MOHAN) 1 TAB DAILY PO Carvedilol (COREG) 12.5 MG C BK DIN PO Insulin Glargine (Semglee) 5 UNIT BEDTIME SUBQ Furosemide (LASIX 20MG INJ) 20 MG BLOOD-DOSE BETWEEN IV (CKD) Sodium Chloride (SODIUM CHLORIDE) 10 ML ASDIR IV Furosemide (LASIX) 20 MG DAILY PO (DC) Pantoprazole Sodium (PROTONIX) 40 MG Q12HR IV Polyethylene Glycol (MIRALAX) 17 GM DAILY PO Sennosides (Senna Lax 8.6 MG TABLET) 8.6 MG DAILY PO Sodium Chloride (SODIUM CHLORIDE) 10 ML ASDIR PRN IV Amitriptyline HCl (ELAVIL) 25 MG BEDTIME PO Zinc Oxide (ZINC OXIDE 30 GM OINTMENT) 1 APPLIC DAILY TOPICAL Sterile Water (WATER FOR IRRIGATION) DRESSING CHANGE ASDIR PRN IRR Insulin Human Lispro (HUMALOG) 0 AC HS SUBQ Dextrose/Water (DEXTROSE 10% IN WATER) 125 ML ASDIR PRN IV (CKD) Dextrose/Water (DEXTROSE 10% IN WATER) 250 ML ASDIR PRN IV (CKD) Glucagon (GLUCAGON) 1 MG ASDIR PRN IM Lidocaine (LIDODERM) 1 PATCH DAILY TOPICAL Insulin Human Lispro (HUMALOG) 5 UNIT AC SUBQ Miscellaneous Information (VANCOMYCIN PHARMACY TO DOSE) 1 EACH ASDIR IV (CKD) Heparin Sodium (HEPARIN 5000 UNITS/ML) 5,000 UNIT Q8HR SUBQ Acetaminophen (TYLENOL) 650 MG Q6H PRN PRN PO Bisacodyl (DULCOLAX) 10 MG DAILY PRN PRN RECTAL Docusate Sodium (COLACE) 100 MG Q12H PRN PRN PO Hydralazine HCl (APRESOLINE) 10 MG Q6H PRN PRN IV Ondansetron HCl (ZOFRAN) 4 MG Q6H PRN PRN IV Physical ExamGeneral appearance: alert, no acute distressHead/eyes: atraumatic, normocephalicENT: normal noseNeck: non-tender, supple/no meningismusCardiovascular: normal heart sounds, no rubRespiratory: aerating well, symmetric expansionAbdomen: non-tender, softGenitourinary: no flank painExtremities: pitting edema, non-tenderMusculoskeletal: no CVA tenderness, no tendernessNeuro/DIRECTOR OPERATING ROOM: alert, 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 Considered stroke alert: noSkin: dry, intact ResultsFindings/Data:Laboratory Tests 09/11 09/11 09/11 09/11 09/11 1933 [...] (Auto) (14.0 - 32.0 %) 16.1 15.5 Len[place] % (Auto) (4.8 - 9.0 %) 9.1 H 8.5 Eos % (Auto) (0.3 - 3.7 %) 5.6 H 5.5 H Baso % (Auto) (0.0 - 2.0 %) 0.5 0.4 Neut # (Auto) (2.0 - 7.6 x10 3/uL) 5.35 5.94 Lymph # (Auto) (1.0 - 3.8 x10 3/uL) 1.27 1.33 Lenoir # (Auto) (0.1 - 0.8 x10 3/uL) 0.72 0.73 Eos # (Auto) (0.0 - 0.2 x10 3/uL) 0.44 H 0.47 H Baso # (Auto) (0.0 - 0.2 x10 3/uL) 0.04 0.03 Abs Immat Gran (auto) (0.00 - 0.03 x10 3/uL) 0.06 H 0.06 H Add Manual Diff NO NO Immature Gran % (0.0 - 2.0 %) 0.8 0.7 Nucleated RBC % (0 - 0 %) 0.0 0.0 Nucleated RBCs # (Man) (0.0 - 0.1 x10 3/uL) 0.00 0.00 Laboratory Tests 09/11 09/11 09/10 09/09 2130 1445 1430 1403 Toxicology Random Vancomycin (mcg/mL) 16.7 18.3 15.7 15.4 Recent Impressions:ULTRASOUND - US RETROPERITONEAL COM 09/10 1311 Report Impression - Status: SIGNED Entered: 09/10/2022 1503 IMPRESSION: No acute findings. Impression By: Yared Mares M.D. Laboratory Tests 09/11 09/11 09/11 1933 1532 1114 Chemistry POC Glucose (70 - 110 MG/DL) 150 H 93 109 Laboratory Tests 09/11 09/11 2130 1445 Toxicology Random Vancomycin (mcg/mL) 16.7 18.3 Diagnosis, Assessment PlanFree Text A P:Patient seen and evaluated, discussed with care team, images and laboratories reviewed.Diabetes mellitus: Insulin: Monitor blood sugar closely and adjust medications as needed, followed by endocrinology.Hypertension: Blood pressure is not well controlled, increase Coreg to 12.5 mg p.o. twice daily: Monitor blood pressure closely and adjust medications as neededRight foot gangrene/infection status post right BKAAnemia: Status post EGD and colonoscopy which were negative for active GI bleeding, patient had work-up in July 2022 which showed very high B12, normal folate, very low iron saturation but very high ferritin which was likely relatedto his infection, likely patient is very iron deficient, will repeat lab and give IV iron if needed. We will check serum immunofixation.Acute kidney injury: We will check renal bladder ultrasound, check postvoid residual, check urine protein creatinine ratioHypomagnesemia: We will supplement09/10/2022 laboratory this morning showed sodium 135, potassium 4.2, CO2 21, BUN 25, creatinine 1.9 continues to worsen, etiology unclear, however his development some eosinophilia not sure if he is developing AIN, suggest changingcefepime to a different class of antibiotic if possible, will check renal bladder ultrasound09/11/2022 laboratory this morning showed sodium 134, potassium 4.3, CO2 22, BUN 26, creatinine 2 up from 1.9, hopefully creatinine is plateauing, renal ultrasound negative.09/12/2022 laboratory this morning showed sodium 134, potassium 4.2, CO2 20, BUN 31, creatinine 2.4 continues to worsen, discussed with ID, AIN is probably the etiology of the unexplained deterioration of his renal function, antibiotics to be adjusted by infectious disease, will give Solu-Medrol 125 mg IV daily for 3 days. Significant lower extremity edema, will start Lasix 20 mg p.o. twice dailyConsultants: cardiology, endocrinology, hospitalist, infectious disease, podiatry at 1045 RPT #:[id number] OF REPORTPRProgress [id number]:09:00G.[id number] able for patient ddepXMXRAGYSMMVOIU2221-23-67Q43:45:38 [facility] 2022-09-11 17:23:00 [id number] yYRBb2W+ylbJMJysQDgwdNJMceFJg e2uQxC05J6g1QqRkdRsI3sSvEn29617-18-27N13:23:00 [facility] HospitalEnd[facility] Progress NoteREPORT#:[id number] REPORT STATUS: SignedDATE:09/11/22 TIME: 172 PATIENT: KARMA ROWLAND UNIT #: [id number]#: [id number] [address] [birth year] AGE: 56 SEX: M ATTEND: Mj Vences MDADM AUTHOR: Braxton Chapin MD * ALL edits or amendments must be made on the electronic/computer document * SubjectivePatient reports: no complaints Objective GeneralVS:Last Documented: Result Date Time Pulse Ox 96 09/11 1531 B/P 145/76 09/11 1531 B/P Mean 99.3 09/11 1531 O2 Delivery Room air 09/11 1531 Temp 36.7 09/11 1531 Pulse 74 09/11 1531 Resp 18 09/11 1531 O2 Flow Rate 2 09/08 1322 PATIENT WEIGHT: Weight (lb): 165Weight (oz): 5.55Weight (kg): 75.000 Medications:Active Meds + DC'd Last 24 HrsCefepime HCl (MAXIPIME) 1 GM Q8H IV Sodium Chloride (SODIUM CHLORIDE) 10 MLGabapentin (NEURONTIN) 100 MG Q8HR PO Hydromorphone HCl (DILAUDID) 0.5 MG Q12H PRN PRN IV Oxycodone/Acetaminophen (PERCOCET 5/325MG TAB) 2 TAB Q4H PRN PRN PO Ferric Sodium Gluconate Complex (FERRLECIT) 125 MG DAILY IV Sodium Chloride (SODIUM CHLORIDE 0.9%) 100 MLFolic Acid (FOLIC ACID) 2 MG DAILY PO Multivitamins (TAB-A-MOHAN) 1 TAB DAILY PO Carvedilol (COREG) 12.5 MG C BK DIN PO Insulin Glargine (Semglee) 5 UNIT BEDTIME SUBQ Furosemide (LASIX 20MG INJ) 20 MG BLOOD-DOSE BETWEEN IV (CKD) Sodium Chloride (SODIUM CHLORIDE) 10 ML ASDIR IV Furosemide (LASIX) 20 MG DAILY PO Pantoprazole Sodium (PROTONIX) 40 MG Q12HR IV Polyethylene Glycol (MIRALAX) 17 GM DAILY PO Sennosides (Senna Lax 8.6 MG TABLET) 8.6 MG DAILY PO Sodium Chloride (SODIUM CHLORIDE) 10 ML ASDIR PRN IV Amitriptyline HCl (ELAVIL) 25 MG BEDTIME PO Zinc Oxide (ZINC OXIDE 30 GM OINTMENT) 1 APPLIC DAILY TOPICAL Sterile Water (WATER FOR IRRIGATION) DRESSING CHANGE ASDIR PRN IRR Insulin Human Lispro (HUMALOG) 0 AC HS SUBQ Dextrose/Water (DEXTROSE 10% IN WATER) 125 ML ASDIR PRN IV (CKD) Dextrose/Water (DEXTROSE 10% IN WATER) 250 ML ASDIR PRN IV (CKD) Glucagon (GLUCAGON) 1 MG ASDIR PRN IM Lidocaine (LIDODERM) 1 PATCH DAILY TOPICAL Insulin Human Lispro (HUMALOG) 5 UNIT AC SUBQ Miscellaneous Information (VANCOMYCIN PHARMACY TO DOSE) 1 EACH ASDIR IV (CKD) Heparin Sodium (HEPARIN 5000 UNITS/ML) 5,000 UNIT Q8HR SUBQ Acetaminophen (TYLENOL) 650 MG Q6H PRN PRN PO Bisacodyl (DULCOLAX) 10 MG DAILY PRN PRN RECTAL Docusate Sodium (COLACE) 100 MG Q12H PRN PRN PO Hydralazine HCl (APRESOLINE) 10 MG Q6H PRN PRN IV Ondansetron HCl (ZOFRAN) 4 MG Q6H PRN PRN IV Physical ExamGeneral appearance: alert, awake Diagnosis, Assessment PlanHospital course to date:Laboratory Tests: 09/11 09/11 09/11 09/11 09/11 1532 1445 1114 0541 0445Chemistry Sodium (134 - 147 mEq/L) 134 Potassium [...] MG/DL) 4.7 Magnesium (1.80 - 2.40 mg/dL) 1.90Hematology WBC (4.5 - 11.0 x10 3/uL) 7.9 [...] % (Auto) (14.0 - 32.0 %) 16.1 Lenoir % (Auto) (4.8 - 9.0 %) 9.1 H Eos % (Auto) (0.3 - 3.7 %) 5.6 H Baso % (Auto) (0.0 - 2.0 %) 0.5 Neut # (Auto) (2.0 - 7.6 x10 3/uL) 5.35 Lymph # (Auto) (1.0 - 3.8 x10 3/uL) 1.27 [place] # (Auto) (0.1 - 0.8 x10 3/uL) 0.72 Eos # (Auto) (0.0 - 0.2 x10 3/uL) 0.44 H Baso # (Auto) (0.0 - 0.2 x10 3/uL) 0.04 Abs Immat Gran (auto) (0.00 - 0.03 0.06 Hx10 3/uL) Add Manual Diff NO Immature Gran % (0.0 - 2.0 %) 0.8 Nucleated RBC % (0 - 0 %) 0.0 Nucleated RBCs # (Man) (0.0 - 0.1 0.00x10 3/uL)Toxicology Random Vancomycin (mcg/mL) 18.3 09/10 1851 Chemistry POC Glucose (70 - 110 MG/DL) 97 Laboratory Tests: 09/10 09/10 09/10 09/10 09/10 1715 1625 1430 1007 0545Chemistry Sodium (134 - 147 mEq/L) 135 Potassium [...] MG/DL) 4.6 Magnesium (1.80 - 2.40 mg/dL) 1.89Hematology WBC (4.5 - 11.0 x10 3/uL) 8.6 [...] % (Auto) (14.0 - 32.0 %) 15.5 Lenoir % (Auto) (4.8 - 9.0 %) 8.5 Eos % (Auto) (0.3 - 3.7 %) 5.5 H Baso % (Auto) (0.0 - 2.0 %) 0.4 Neut # (Auto) (2.0 - 7.6 x10 3/uL) 5.94 Lymph # (Auto) (1.0 - 3.8 x10 3/uL) 1.33 Lenoir # (Auto) (0.1 - 0.8 x10 3/uL) 0.73 Eos # (Auto) (0.0 - 0.2 x10 3/uL) 0.47 H Baso # (Auto) (0.0 - 0.2 x10 3/uL) 0.03 Abs Immat Gran (auto) (0.00 - 0.03 0.06 Hx10 3/uL) Add Manual Diff NO Immature Gran % (0.0 - 2.0 %) 0.7 Nucleated RBC % (0 - 0 %) 0.0 Nucleated RBCs # (Man) (0.0 - 0.1 0.00x10 3/uL)Toxicology Random Vancomycin (mcg/mL) 15.7 09/10 09/09 0541 1911 Chemistry POC Glucose (70 - 110 MG/DL) 154 H 102 Recent Impressions:ULTRASOUND - US RETROPERITONEAL COM 09/10 1311 Report Impression - Status: SIGNED Entered: 09/10/2022 1503 IMPRESSION: No acute findings. Impression By: Yared Mares M.D. Laboratory Tests: 09/09 09/09 09/09 09/09 09/09 [...] % (Auto) (14.0 - 32.0 %) 16.1 Lenoir % (Auto) (4.8 - 9.0 %) 9.2 H Eos % (Auto) (0.3 - 3.7 %) 4.7 H Baso % (Auto) (0.0 - 2.0 %) 0.4 Neut # (Auto) (2.0 - 7.6 x10 3/uL) 6.38 Lymph # (Auto) (1.0 - 3.8 x10 3/uL) 1.49 Lenoir # (Auto) (0.1 - 0.8 x10 3/uL) 0.85 H Eos # (Auto) (0.0 - 0.2 x10 3/uL) 0.43 H Baso # (Auto) (0.0 - 0.2 x10 3/uL) 0.04 Abs Immat Gran (auto) (0.00 - 0.03 x10 3/uL) 0.05 H Add Manual Diff NO Immature Gran % (0.0 - 2.0 %) 0.5 Nucleated RBC % (0 - 0 %) 0.0 Nucleated RBCs # (Man) (0.0 - 0.1 x10 3/uL) 0.00 Retic Count (auto) (0.3 - 2.3 [...] (Auto) (14.0 - 32.0 %) 13.7 L Lenoir % (Auto) (4.8 - 9.0 %) 7.2 Eos % (Auto) (0.3 - 3.7 %) 4.8 H Baso % (Auto) (0.0 - 2.0 %) 0.3 Neut # (Auto) (2.0 - 7.6 x10 3/uL) 6.64 Lymph # (Auto) (1.0 - 3.8 x10 3/uL) 1.24 Lenoir # (Auto) (0.1 - 0.8 x10 3/uL) 0.65 Eos # (Auto) (0.0 - 0.2 x10 3/uL) 0.43 H Baso # (Auto) (0.0 - 0.2 x10 3/uL) 0.03 Abs Immat Gran (auto) (0.00 - 0.03 x10 3/uL) 0.06 H Add Manual Diff NO Immature Gran % (0.0 - 2.0 %) 0.7 Nucleated RBC % (0 - 0 %) 0.0 Nucleated RBCs # (Man) (0.0 - 0.1 x10 3/uL) 0.00 Laboratory Tests: 09/07 09/07 09/07 09/07 09/07 1554 1137 1127 0618 0510 Chemistry Creatinine (0.6 - 1.3 mg/dL) 1.4 H POC Glucose (70 - 110 MG/DL) 112 H 51 L 42 L 135 H Hematology Hgb (12.5 - 16.9 [...] 1739 Occult Blood - COMP STOOL Recent Impressions:RADIOLOGY - XR ABDOMEN 1V (KUB) 09/04 1648 Report Impression - Status: SIGNED Entered: 09/04/2022 1757 IMPRESSION: Benign appearance of the abdomen.Impression By: [email or web address] - Roger Parra M.D.ULTRASOUND - [facility] UNI/LTD 09/05 1146 Report Impression - Status: SIGNED Entered: 09/05/2022 1333 IMPRESSION: 1. No evidence of deep vein thrombosis. 2. Complex heterogeneous hypoechoic fluid collection in the left calf region measuring 8.4 x 2.8 x 2.5 cm; there is no internal vascularity or peripheral hyperemia. May represent a hematoma.Impression By: [id number] - Mert Ga M.D.RADIOLOGY - XR CHEST 1 V 09/05 1432 Report Impression - Status: SIGNED Entered: 09/05/2022 1515 IMPRESSION: Minimal bibasilar pulmonary opacitiesImpression By: Yared Mares M.D. Laboratory Tests: 09/04 09/04 09/04 09/04 09/04 [...] COLB STOOL 1.Diabetes mellitus type 2 uncontrolled complications.2. Status post right BKA3. Status post gangrene of the right foot.4. Sepsis5. Prostate abscess.6. AnemiaBlood sugar 109-130 mg/dL.H/H 8.11/17.Adjust insulin dose.PT and OT. at 1724 RPT #:[id number] OF REPORTPRProgress [id number]:23:00G.[id number] able for patient kazmOZPZTSVGSADFWB6381-84-76L38:24:45 [facility] 2022-09-11 16:34:00 [id number] ItnW+4CMmaTANvnF+/dYQSVka6OBc 3x9QEi2H4AHpbYGzwDb9wYhp6Ke4611-08-02U07:34:00 [facility] Prog.Note-VancomycinREPORT#:[id number] REPORT STATUS: SignedDATE:09/11/22 TIME: 1634 PATIENT: KARMA ROWLAND UNIT #: [id number]#: [id number] [address] [birth year] AGE: 56 SEX: M ATTEND: Mj Vences [facility] AUTHOR: Joselyn Stock [facility] * ALL edits or amendments must be made on the electronic/computer document * See AddendumVancomycin Vancomycin Medication TherapyGoal: Random 15-20 mcg/mLIndication for treatment:OM and MRSA BacteremiaVS and I/O:Vital SignsDate Temp Pulse Resp B/P B/P Mean Pulse Ox UaK190/-09/11 97.3-98.2 70-91 15-18 133-168/64-83 87.1-110.6 94-99 72 hours ending at 0700 09/11 0700 09/10 1900 09/10 0700 09/09 1900 09/09 09/08 0700 1900Intake 715 250.00TotalOutput 1000 850TotalBalance -1000 715 -850 250.00 Intake, IV 250.00Intake, 715OralNumber 1BowelMovementsNumber 0 0IncontinentVoidsNumber 0 0VoidsOutput, 1000 850Urine 72 Hour I O Total 09/11 0700 09/10 0700 09/09 0700 Intake Total 715 250.00 Output Total 1000 850 Balance -1000 715 -600.00 Labs:Laboratory Tests: 09/11 09/10 09/09 1445 1430 1403 Toxicology Random Vancomycin (mcg/mL) 18.3 15.7 15.4 Laboratory Test : 09/11 09/10 09/09 0445 0545 0500 Chemistry BUN (7 - 18 mg/dL) 26 H 25 H 23 H Creatinine (0.6 - 1.3 mg/dL) 2.0 H 1.9 H 1.5 H Hematology WBC (4.5 - 11.0 x10 3/uL) 7.9 8.6 9.2 Treatment plan: consultRegimen:56yo male with PMH of T2DM and HTN who was admitted with AMS and right-sided foot infection. According to him, he noticed a blister on his right foot around3 days prior to presentation on 08/18. His foot got progressively more swollen and erythema extended proximally to his lateral foot and ankle. Patient's BCx had persistent BCx for MRSA 08/18- 08/22. He underwent a debridement of his foot on 08/19 and Cx grew MRSA. Pt was started on Vancomycin and clindamycin on 08/18.Patient is s/p ICU stay with merrem/daptomycin. ID adjusted regimen to cefepime/vancomycin. Pharmacy consulted to dose vancomycin. Consulting provider: Doris Wolffication: Osteomyelitis of the Talus, Calcaneus, and Navicular Bone; MRSA Bacteremia; Prostatic AbscessGoal Random: 15-20 mcg/mLConcomitant Abx: CefepimeDuration of Therapy: 09/24/22 Assessment:Labs/Vitals* Afebrile/24hrs, WBC 7.9, BUN/SCr 26/2, UOP/24hrs -1LMicro* MRSA nares (09/03) positive* WCx (08/26) Citrobacter Farmeri (R Ampicillin, Cefazolin), Enterococcus Raffinosus (R Tetracycline), MRSAImaging* CT Abd/Pelvis (08/18) possible abscess* RLE MRI (08/21) osteomyelitis of the talus, calcaneus, navicular boneLevel* Random (09/07 @0510) 14.7 mcg/mL; s/p Vanc 1gm IV x1 09/05 @2009; Calculated half-life = 35.8hrs* Random (09/08 @1045) 15.8 mcg/mL; s/p Vanc 750mg IV x1 09/07 @1102* Given patient's renal function has been elevated, yet stable, Vancomycin 500mgIV q24h was initiated* Random (09/09 @1403) 15.4 mcg/mL; s/p Vanc 500mg IV x1 09/08 @1403* Random (09/10 @1430) 15.7 mcg/mL; s/p Vanc 500mg IV x1 09/09 @1553* Random (09/11 @1445) 18.3 mcg/mL; s/p Vanc 500mg IV x1 09/07 @1627 Plan:* Patient's renal function worsened today and vanc is accumulating, therefore will continue to dose by random level* Draw random level 09/11 @2100 to assess clearance at 1642 Addendum 1: 09/11/222306 by Beti Willoughby [facility] * level drawn @2130 ( 29 hrs after prev dose); resulted 16.7 mcg/mL (therapeutic)* will give vancomycin 500 mg IV once, plan for random 30hr level 09/13 0500* pharmacy will continue to follow and adjust as appropriate at 2307 RPT #:[id number] OF REPORTPRProgress fvkq0789-55-14B15:34:00G.[id number] able for patient zhfeZPOUHVLMPUOSQV5501-55-50I80:43:09 [facility] 2022-09-11 11:30:00 [id number] FkFX40JpXBCkmzeueWeixl6Qvm7qR FBGhCnk2NnrHM/Gb5LTmd/Co2u97719-23-34C61:30:00 [facility] HospitalHospital[facility] Progress NoteREPORT#:[id number] REPORT STATUS: SignedDATE:09/11/22 TIME: 1130 PATIENT: KARMA ROWLAND UNIT #: [id number]#: [id number] [address] [birth year] AGE: 56 SEX: M ATTEND: Mj Vences MDA AUTHOR: Wilbert Ramires MD * ALL edits or amendments must be made on the electronic/computer document * SubjectiveChief complaint:admitted to rehab. participating with therapy Review of SystemsAll systems rev neg: except as noted Objective GeneralVS/I O:Vital Signs: Date Time Temp Pulse Resp B/P B/P Pulse O2 O2 Flow FiO2 Mean Ox Delivery Rate 09/11 0540 97.7 81 18 137/71 92.8 96 Nasal cannula 09/104 97.5 77 16 152/78 102.5 96 09/10 1855 97.5 70 17 153/79 103.6 97 Room air 09/10 1627 97.9 75 18 147/78 100.9 99 Room air 24 hour I O ending at 0700: 09/11 0700 09/10 1900 Intake Total Output Total 1000 Balance -1000 Number 0 Incontinent Voids Number Voids 0 Output, Urine 1000 PATIENT WEIGHT: Weight (lb): 165Weight (oz): 5.55Weight (kg): 75.000 Medications:Active Meds + DC'd Last 24 HrsVancomycin HCl (VANCOMYCIN HCL) 500 MG ONCE ONE IV (DC) Sodium Chloride (SODIUM CHLORIDE 0.9% 100 ML) 100 MLCefepime HCl (MAXIPIME) 1 GM Q8H IV Sodium Chloride (SODIUM CHLORIDE) 10 MLGabapentin (NEURONTIN) 100 MG Q8HR PO Hydromorphone HCl (DILAUDID) 0.5 MG Q12H PRN PRN IV Oxycodone/Acetaminophen (PERCOCET 5/325MG TAB) 2 TAB Q4H PRN PRN PO Ferric Sodium Gluconate Complex (FERRLECIT) 125 MG DAILY IV Sodium Chloride (SODIUM CHLORIDE 0.9%) 100 MLFolic Acid (FOLIC ACID) 2 MG DAILY PO Multivitamins (TAB-A-MOHAN) 1 TAB DAILY PO Carvedilol (COREG) 12.5 MG C BK DIN PO Insulin Glargine (Semglee) 5 UNIT BEDTIME SUBQ Furosemide (LASIX 20MG INJ) 20 MG BLOOD-DOSE BETWEEN IV (CKD) Sodium Chloride (SODIUM CHLORIDE) 10 ML ASDIR IV Furosemide (LASIX) 20 MG DAILY PO Pantoprazole Sodium (PROTONIX) 40 MG Q12HR IV Polyethylene Glycol (MIRALAX) 17 GM DAILY PO Sennosides (Senna Lax 8.6 MG TABLET) 8.6 MG DAILY PO Sodium Chloride (SODIUM CHLORIDE) 10 ML ASDIR PRN IV Amitriptyline HCl (ELAVIL) 25 MG BEDTIME PO Zinc Oxide (ZINC OXIDE 30 GM OINTMENT) 1 APPLIC DAILY TOPICAL Sterile Water (WATER FOR IRRIGATION) DRESSING CHANGE ASDIR PRN IRR Insulin Human Lispro (HUMALOG) 0 AC HS SUBQ Dextrose/Water (DEXTROSE 10% IN WATER) 125 ML ASDIR PRN IV (CKD) Dextrose/Water (DEXTROSE 10% IN WATER) 250 ML ASDIR PRN IV (CKD) Glucagon (GLUCAGON) 1 MG ASDIR PRN IM Lidocaine (LIDODERM) 1 PATCH DAILY TOPICAL Insulin Human Lispro (HUMALOG) 5 UNIT AC SUBQ Miscellaneous Information (VANCOMYCIN PHARMACY TO DOSE) 1 EACH ASDIR IV (CKD) Heparin Sodium (HEPARIN 5000 UNITS/ML) 5,000 UNIT Q8HR SUBQ Acetaminophen (TYLENOL) 650 MG Q6H PRN PRN PO Bisacodyl (DULCOLAX) 10 MG DAILY PRN PRN RECTAL Docusate Sodium (COLACE) 100 MG Q12H PRN PRN PO Hydralazine HCl (APRESOLINE) 10 MG Q6H PRN PRN IV Ondansetron HCl (ZOFRAN) 4 MG Q6H PRN PRN IV Physical ExamGeneral appearance: alert, awake, orientedHead/Eyes: atraumatic, clear corneaNeck: full range of motion, non-tenderCardiovascular: normal capillary refill, normal heart sounds, regular rate rhythmRespiratory: aerating well, clear to auscultationAbdomen: non-tender, normal bowel soundsGenitourinary: no flank painExtremities: moves all, normal capillary refillMusculoskeletal: normal inspection, painless range of motionNeuro/DIRECTOR OPERATING ROOM: alert, oriented X 3, 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 Considered stroke alert: noSkin: dry, intactPsychiatry: normal affect, normal judgment/insight Diagnosis, Assessment PlanConsultants: cardiology, endocrinology, hospitalist, infectious disease, podiatry Free Text DxA P NotesFree text DxA P notes:Gangrene of right foot s/p Below- knee amputation Prostate abscessMRSA bacteremiaHx of Diabetes, Diabetic neuropathyHTN PLANS: Continue with ABx as dierected- currently on Daptomycin and CefepimeContinue with PT/OT per primary Fall precautionsNutritional supportpain controlfall precautionsbowel regimenWound care as directedHepain PPXContinue with supportive / care follow hgb closely and transfuse as neededblood sugars dipping down - endo followinglabs noted. watch HgbIV ironBP improving. cntinue to adjust BP meds depending on trends at 1131 RPT #:[id number] OF REPORTPRProgress [id number]:30:00G.[id number] able for patient xocyRIMIEDGHILVFXV1753-78-44N70:31:38 [facility] 2022-09-11 10:41:00 [id number] HmEpxrQkfJ3P/BDhsnJwUO71MN0um cxL6dzGpYQOOpdVOWW88XvSNg1O9615-77-42Q53:41:00 [facility])Rehab Progress NoteREPORT#:[id number] REPORT STATUS: SignedDATE:09/11/22 TIME: 1041 PATIENT: KARMA ROWLAND UNIT #: [id number]#: [id number] [address] [birth year] AGE: 56 SEX: M ATTEND: Mj Vences AUTHOR: Mj Vences MD * ALL edits or amendments must be made on the electronic/computer document * SubjectiveChief complaint:Rehab follow-upPatient doing well, sitting up in wheelchairDecrease edema of LLE+ BMEating 75-100% at bedsideDenies DICKENS/N/V/D/CP14 systems reviewed and neg. except that above.History of present illness:56 yo HAM with long h/o DM, and HTN who was admitted for fever, flulike symptomsand altered mental status on 08/18. He was doing well until about 3 days prior toadmission when he noted blister to have formed on the dorsum of his foot. His foot started progressively getting more swollen and the blisters started enlarging and extending to his lateral foot and ankle. He started feeling weak and nauseated. He was noted to have altered mentation and was brought to our ER.He was noted to be in DKA with Blood sugars greater than 600. He was seen by podiatry and surgery for BLE wounds and infection. He was treated in ICU for sepsis and DKA. He underwent incisional and excisional debridement of right footand right ankle by podiatry. Patient also found to have prostate abscess underwent transrectal ultrasound aspiration of abscess and transurethral resection of prostate and unroofing of abscess by urology Dr. Du. Endocrinology treated the DKA and blood sugars much improved. Patient's right foot was not salvageable and patient underwent right BKA by Dr. LEROY on 08/28. Patient blood cultures showed MRSA. Patient continued on antibiotics as per ID. MRI of the pelvis and foot completed. Patient required multiple PRBCs for anemia. Patient was found to have a possible small hematoma of the left calf onultrasound. He complains of pain and swelling of the left ankle. Patient hemodynamically stable and plans are to be transferred to stepdown unit. He is on heparin subcu for VTE. After surgery he is now being mobilized by PT and OT.He is wearing a maxine-tech orthotic for right knee/BKA protection. Prior to admission the patient was independent living in a single-story house with his spouse with a few steps up to front and back door. 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 is at bedside. Patient denies nausea, vomiting, fever, chills, chest pain, shortness of breath with dizziness. He is requiring IV Dilaudid for pain control. Mental status back to baseline. Pt is progressing slowly with therapy d/t weakness and pain, self care deficit, decreased endurance and balance, and decreased functional mobility. Pt requiring acute inpt rehab for multidisciplinary team of nursing, therapy, and physicians. Pt iswilling and able to partici- kathleen in 3 hr/day inpt rehab to d/c home safely. Pt's prior level of function was independent. Objective GeneralVS:Vital Signs: Date Time Temp Pulse Resp B/P B/P Pulse O2 O2 Flow FiO2 Mean Ox Delivery Rate 09/11 1531 98.1 74 18 145/76 99.3 96 Room air 09/11 1144 83 162/79 106.3 09/11 0640 97.7 81 18 137/71 92.8 96 Nasal cannula 09/10 2314 97.5 77 16 152/78 102.5 96 09/10 1855 97.5 70 17 153/79 103.6 97 Room air PATIENT WEIGHT: Weight (lb): 165Weight (oz): 5.55Weight (kg): 75.000 Medications:Active Meds + DC'd Last 24 HrsCefepime HCl (MAXIPIME) 1 GM Q8H IV Sodium Chloride (SODIUM CHLORIDE) 10 MLGabapentin (NEURONTIN) 100 MG Q8HR PO Hydromorphone HCl (DILAUDID) 0.5 MG Q12H PRN PRN IV Oxycodone/Acetaminophen (PERCOCET 5/325MG TAB) 2 TAB Q4H PRN PRN PO Ferric Sodium Gluconate Complex (FERRLECIT) 125 MG DAILY IV Sodium Chloride (SODIUM CHLORIDE 0.9%) 100 MLFolic Acid (FOLIC ACID) 2 MG DAILY PO Multivitamins (TAB-A-MOHAN) 1 TAB DAILY PO Carvedilol (COREG) 12.5 MG C BK DIN PO Insulin Glargine (Semglee) 5 UNIT BEDTIME SUBQ Furosemide (LASIX 20MG INJ) 20 MG BLOOD-DOSE BETWEEN IV (CKD) Sodium Chloride (SODIUM CHLORIDE) 10 ML ASDIR IV Furosemide (LASIX) 20 MG DAILY PO Pantoprazole Sodium (PROTONIX) 40 MG Q12HR IV Polyethylene Glycol (MIRALAX) 17 GM DAILY PO Sennosides (Senna Lax 8.6 MG TABLET) 8.6 MG DAILY PO Sodium Chloride (SODIUM CHLORIDE) 10 ML ASDIR PRN IV Amitriptyline HCl (ELAVIL) 25 MG BEDTIME PO Zinc Oxide (ZINC OXIDE 30 GM OINTMENT) 1 APPLIC DAILY TOPICAL Sterile Water (WATER FOR IRRIGATION) DRESSING CHANGE ASDIR PRN IRR Insulin Human Lispro (HUMALOG) 0 AC HS SUBQ Dextrose/Water (DEXTROSE 10% IN WATER) 125 ML ASDIR PRN IV (CKD) Dextrose/Water (DEXTROSE 10% IN WATER) 250 ML ASDIR PRN IV (CKD) Glucagon (GLUCAGON) 1 MG ASDIR PRN IM Lidocaine (LIDODERM) 1 PATCH DAILY TOPICAL Insulin Human Lispro (HUMALOG) 5 UNIT AC SUBQ Miscellaneous Information (VANCOMYCIN PHARMACY TO DOSE) 1 EACH ASDIR IV (CKD) Heparin Sodium (HEPARIN 5000 UNITS/ML) 5,000 UNIT Q8HR SUBQ Acetaminophen (TYLENOL) 650 MG Q6H PRN PRN PO Bisacodyl (DULCOLAX) 10 MG DAILY PRN PRN RECTAL Docusate Sodium (COLACE) 100 MG Q12H PRN PRN PO Hydralazine HCl (APRESOLINE) 10 MG Q6H PRN PRN IV Ondansetron HCl (ZOFRAN) 4 MG Q6H PRN PRN IV Physical ExamGeneral appearance: alert, awake, no acute distressPsych: alert, normal affect, oriented x 3HEENT: anicteric, sclera clearNeck: supple, no JVDCardiovascular: S1/S2, no murmurRespiratory: aerating well, clear bilaterallyAbdomen: bowel sounds present, non-distended, soft, non-tenderSkin: no rash, R BKA HEALING. L ankle/foot wrapped with kerlixMusculoskeletal - general: Musculoskeletal - general: swelling (LLE, calve NT, homans neg), BUE 5/5, LLE4/5, R hip 3-Neuro/DIRECTOR OPERATING ROOM: alert, oriented X 3, CNII-XII intact ResultsFindings/Data:Laboratory Tests: 09/11 09/11 09/11 09/11 09/11 1532 1445 1114 0541 0445Chemistry Sodium (134 - 147 mEq/L) 134 Potassium [...] MG/DL) 4.7 Magnesium (1.80 - 2.40 mg/dL) 1.90Hematology WBC (4.5 - 11.0 x10 3/uL) 7.9 [...] % (Auto) (14.0 - 32.0 %) 16.1 Lenoir % (Auto) (4.8 - 9.0 %) 9.1 H Eos % (Auto) (0.3 - 3.7 %) 5.6 H Baso % (Auto) (0.0 - 2.0 %) 0.5 Neut # (Auto) (2.0 - 7.6 x10 3/uL) 5.35 Lymph # (Auto) (1.0 - 3.8 x10 3/uL) 1.27 Lenoir # (Auto) (0.1 - 0.8 x10 3/uL) 0.72 Eos # (Auto) (0.0 - 0.2 x10 3/uL) 0.44 H Baso # (Auto) (0.0 - 0.2 x10 3/uL) 0.04 Abs Immat Gran (auto) (0.00 - 0.03 0.06 Hx10 3/uL) Add Manual Diff NO Immature Gran % (0.0 - 2.0 %) 0.8 Nucleated RBC % (0 - 0 %) 0.0 Nucleated RBCs # (Man) (0.0 - 0.1 0.00x10 3/uL)Toxicology Random Vancomycin (mcg/mL) 18.3 09/10 1851 Chemistry POC Glucose (70 - 110 MG/DL) 97 Radiology data:Recent Impressions:ULTRASOUND - DUP VEIN UNI/LTD 09/05 1146 Report Impression - Status: SIGNED Entered: 09/05/2022 1333 IMPRESSION: 1. No evidence of deep vein thrombosis. 2. Complex heterogeneous hypoechoic fluid collection in the left calf region measuring 8.4 x 2.8 x 2.5 cm; there is no internal vascularity or peripheral hyperemia. May represent a hematoma.Impression By: Kacey Ga M.D.RADIOLOGY - XR CHEST 1 V 09/05 1432 Report Impression - Status: SIGNED Entered: 09/05/2022 1515 IMPRESSION: Minimal bibasilar pulmonary opacitiesImpression By: Yared Mares M.D.ULTRASOUND - US RETROPERITONEAL COM 09/10 1311 Report Impression - Status: SIGNED Entered: 09/10/2022 1503 IMPRESSION: No acute findings. Impression By: Yared - Bishop Mares M.D. Diagnosis, Assessment PlanProblem List/A P: 1. Gangrene of right foot 2. Below-knee amputation of right lower extremity 3. MRSA bacteremia 4. Cellulitis of foot, right 5. DKA (diabetic ketoacidosis) 6. Hyperglycemia 7. ERIKA (acute kidney injury) 8. Postoperative pain 9. Acute anemia 10. Prostate abscess 11. Impaired functional mobility, balance, gait, and endurance Free Text A P:Assessment:Severe Gas gangrene right foot and right ankle associated with osteomyelitis andnecrotizing fasciitisS/p surgical debridement and washout4/6: S/p right BKA-Dr. Greenberggnificant impairment in self-care, ADLs and functional mobilityImpaired mobility and gaitAcute postoperative pain right BKADiabetic polyneuropathyDKA, DM 2, poorly controlled, A1c greater than 14PADMRSA bacteremia/sepsis-treated on acuteAKISevere hyponatremia-resolvedHTNAcute on chronic anemia requiring multiple transfusions, possible GI bleedLeft calf hematomaEdema and clinical arthritis left ankleEarly decubitus to left heel/DTI dorsal left midfootProstatic abscess 08/26: S/p transrectal ultrasound aspiration of abscess and transurethral resection of prostate and unroofing of abscessEcho: EF 55-59%, grade 1 diastolic dysfunction4: JIMENA negative for vegetationMRSA OF NARES09/08:s/p EGD and colonoscopy. EGD showed mild gastritis. Colonoscopy showed rectal polyp that was resected by snare. Plan:-PLOF: Independent with transfers and gait-Amputee rehab program-Continue PT and OT-15/12 rehabilitation nursing care.-Case management for safe discharge planning.-Decubitus prevention-Early decubitus to left heel/DTI dorsal left midfoot-zinc oxide to the foot, foam, offloading, podiatry managing-DVT prophylaxis-subcutaneous heparin-Strict fall and safety precautions-Work on bed mobility, transfer training, ADLs, pre-gait and gait exercises-Increase endurance and strength-Monitor pain with therapies-OOB to chair-Monitor p.o. intake and nutrition, albumin 1.3, prealbumin less than 5, dietaryconsultation, protein supplements to promote jzkwicu-Tkduzjcs-A5u 14, tight glycemia control- endocrine on board, insulin adjustments-Endocrinology, ID, podiatry, cardiology, IM consulted-Pain management adjusting pain medications-Anemia, patient required multiple units of PRBCs on acute, FOBT positive-IV Protonix-consult GI-serial H H-no evidence of gross bleeding-discussed with Dr. TrinidadAvuhdzxy-Xdokvvsnoyqd-pjmybbnqv rhdhozhg-YIO-skqwxz-CW Senokot and MiraLAX, DSP-Right MGF-hebjmrt-jvhtnkmt resolved, dressings changed jkjwo-tmdnuqj-vtxgthqq AID-IINQ-TSAW OF NARES on Bactroban protocol-LLE edema-venous Doppler with complex heterogeneous hypoechoic fluid collectionin the left calf region measuring 8.4, 2.8, 2.5 cm suggestive of hematoma. On low-dose Lasix. Joan wrap LLE-LE edema could be related to hypoalbuminemia leading to third spacing-edema improving-Generalized edema-some shortness of breath and abdominal distention-cardiology gave a dose of IV Lasix-monitor urine output, daily weights-SOB resolved-09/05-venous Doppler of LLE-negative for DVT-Joan wrap dressing and elevation-Chest x-ray with minimal basilar pulmonary tzdktcwsq-Wrucsh-zdzexrfnuq 8.3, transfused 2 units of PRBC on 09/05-09/08: s/p EGD and colonoscopy. EGD showed mild gastritis. Colonoscopy showed rectal polyp that was resected by snare. Anemia likely secondary to chronic kidney disease. Consult renal.-Chemistries good, creatinine 2.0, magnesium 1.9-Renal ultrasound negative-09/11/2022 laboratory this morning showed sodium 134, potassium 4.3, CO2 22, BUN26, creatinine 2 up from 1.9, hopefully creatinine is plateauing, renal ultrasound negative-as per renal-Continue antibiotics per ID-on cefepime and vancomycin until 09/24 for treatment of prostatic abscess-Advance therapies as tolerated-discussed treatment plan with patient and -Patient progressing with therapies, requires multiple rest breaks. Some back pain improved with pain medications. Mild dizziness and blood pressure 162/79 with no increase in symptoms during sessions. Patient making steady progress towards goals. Progress: PT PARTCIPATED IN 90' OF SKILLED PT TODAY. PT EDUCATED ON RLE NWB STATUS, POSTURE, AND SAFETY PRECAUTIONS TO INCREASE AWARENESS THROUGHOUT SESSION. PT PROPELLED W/C WITH B/L UE, SPV, 160 FEET, 40 FEET, 220, 100 FEET, and 60 FEET. PT PERFORMED SEATED W/C PUSHUPS (5 REPS X2), HIP ADDWITH BALL (10 REPS X2, 3"), AND HIP ABD (10 REPS X2, 3" WITH GREEN THERABAND). PM RPlease see team note.Plan and goals discussed with the patient. I agree with the teams findingELOS- [09/19]DC-Home with -Home healthDME-bedside commode, sliding board, wheelchair, Total time 33 minutes greater than 50% of the time spent examining patient, discussing with patient and about medical issues, amputee rehab plan of care, goals, therapies, progress, labs, medications. EMR and MAR is reviewed. All questions answeredOrders: Procedure Date/time Status MRSA SCREEN SURV 09/15 0500 Active MRSA SCREEN SURV 09/13 0500 Active Joan Bandage: Apply 09/11 1304 Active PT WHEELCHAIR TRAINING 09/11 UNK Complete PT EXERCISE 15 MIN 09/11 UNK Complete OT FUNCTIONAL TRN 15 MIN 09/11 UNK Complete OT EXERCISE 15MIN 09/11 UNK Complete OT ADL 09/11 UNK Complete Consultants: cardiology, endocrinology, hospitalist, infectious disease, podiatryRehab attestation:Face to face exam completed. Treatment plan discussed with patient. Meets continued stay criteria. Agree with interdisciplinary treatment plan. at 1731 [facility] #:[id number] OF REPORTPRProgress [id number]:41:00G.[id number] able for patient nedaVIWCCJVHEGDCCM4425-79-58H62:31:36 [facility] 2022-09-11 09:29:00 [id number]JFRV ykYbfPRcXaBpxrxTfJr1a2hflb/3600-59-27O37:29:00 [facility] ([facility])Cardiology Progress NoteREPORT#:[id number] REPORT STATUS: SignedDATE:09/11/22 TIME: 928 PATIENT: KARMA ROWLAND UNIT #: [id number]#: [id number] [place] [facility]DOB: [birth year] AGE: 56 SEX: M ATTEND: Mj Vences [facility] AUTHOR: Rohit Benitez RESEARCH MANUFACTURING OPERATOR * ALL edits or amendments must be made on the electronic/computer document * Rohit Benitez 09/11/22 0929:SubjectiveChief complaint:weakness Free Text Subj NotesFree Text Subj Notes:Patient seen and evaluated. Overall doing well, no cardiac complaint. Improvement in leg swelling. Objective GeneralVS/I O:24 hour I O ending at 0700: 09/11 0700 09/10 1900 Intake Total Output Total 1000 Balance -1000 Number 0 Incontinent Voids Number Voids 0 Output, Urine 1000 Vital Signs: Date Time Temp Pulse Resp B/P B/P Pulse O2 O2 Flow FiO2 Mean Ox Delivery Rate 09/11 0640 97.7 81 18 137/71 92.8 96 Nasal cannula 09/10 2314 97.5 77 16 152/78 102.5 96 09/10 1855 97.5 70 17 153/79 103.6 97 Room air 09/10 1627 97.9 75 18 147/78 100.9 99 Room air PATIENT WEIGHT: Weight (lb): 165Weight (oz): 5.55Weight (kg): 75.000 Medications:Active Meds + DC'd Last 24 HrsVancomycin HCl (VANCOMYCIN HCL) 500 MG ONCE ONE IV (DC) Sodium Chloride (SODIUM CHLORIDE 0.9% 100 ML) 100 MLCefepime HCl (MAXIPIME) 1 GM Q8H IV Sodium Chloride (SODIUM CHLORIDE) 10 MLGabapentin (NEURONTIN) 100 MG Q8HR PO Hydromorphone HCl (DILAUDID) 0.5 MG Q12H PRN PRN IV Oxycodone/Acetaminophen (PERCOCET 5/325MG TAB) 2 TAB Q4H PRN PRN PO Ferric Sodium Gluconate Complex (FERRLECIT) 125 MG DAILY IV Sodium Chloride (SODIUM CHLORIDE 0.9%) 100 MLFolic Acid (FOLIC ACID) 2 MG DAILY PO Multivitamins (TAB-A-MOHAN) 1 TAB DAILY PO Carvedilol (COREG) 12.5 MG C BK DIN PO Insulin Glargine (Semglee) 5 UNIT BEDTIME SUBQ Furosemide (LASIX 20MG INJ) 20 MG BLOOD-DOSE BETWEEN IV (CKD) Sodium Chloride (SODIUM CHLORIDE) 10 ML ASDIR IV Furosemide (LASIX) 20 MG DAILY PO Pantoprazole Sodium (PROTONIX) 40 MG Q12HR IV Polyethylene Glycol (MIRALAX) 17 GM DAILY PO Sennosides (Senna Lax 8.6 MG TABLET) 8.6 MG DAILY PO Sodium Chloride (SODIUM CHLORIDE) 10 ML ASDIR PRN IV Amitriptyline HCl (ELAVIL) 25 MG BEDTIME PO Zinc Oxide (ZINC OXIDE 30 GM OINTMENT) 1 APPLIC DAILY TOPICAL Sterile Water (WATER FOR IRRIGATION) DRESSING CHANGE ASDIR PRN IRR Insulin Human Lispro (HUMALOG) 0 AC HS SUBQ Dextrose/Water (DEXTROSE 10% IN WATER) 125 ML ASDIR PRN IV (CKD) Dextrose/Water (DEXTROSE 10% IN WATER) 250 ML ASDIR PRN IV (CKD) Glucagon (GLUCAGON) 1 MG ASDIR PRN IM Lidocaine (LIDODERM) 1 PATCH DAILY TOPICAL Insulin Human Lispro (HUMALOG) 5 UNIT AC SUBQ Miscellaneous Information (VANCOMYCIN PHARMACY TO DOSE) 1 EACH ASDIR IV (CKD) Heparin Sodium (HEPARIN 5000 UNITS/ML) 5,000 UNIT Q8HR SUBQ Acetaminophen (TYLENOL) 650 MG Q6H PRN PRN PO Bisacodyl (DULCOLAX) 10 MG DAILY PRN PRN RECTAL Docusate Sodium (COLACE) 100 MG Q12H PRN PRN PO Hydralazine HCl (APRESOLINE) 10 MG Q6H PRN PRN IV Ondansetron HCl (ZOFRAN) 4 MG Q6H PRN PRN IV Physical ExamGeneral appearance: alert, awake, orientedNeck: no bruit/NL carotids, no JVDCardiovascular: CV assessment: regular rate and rhythm, no ectopy, no gallopRespiratory: clear to auscultation, no distressAbdomen: soft, non-tenderLower extremity: LE assessment: edema, normal temperatureNeuro/DIRECTOR OPERATING ROOM: alert, oriented X 3 Considered stroke alert: noWound/incision: Location:right bkaPsychiatry: normal affect, normal judgment/insight, normal mood ResultsFindings/Data:Laboratory Tests 09/11 09/11 09/10 09/10 09/10 0541 [...] % (Auto) (14.0 - 32.0 %) 16.1 Lenoir % (Auto) (4.8 - 9.0 %) 9.1 H Eos % (Auto) (0.3 - 3.7 %) 5.6 H Baso % (Auto) (0.0 - 2.0 %) 0.5 Neut # (Auto) (2.0 - 7.6 x10 3/uL) 5.35 Lymph # (Auto) (1.0 - 3.8 x10 3/uL) 1.27 Lenoir # (Auto) (0.1 - 0.8 x10 3/uL) 0.72 Eos # (Auto) (0.0 - 0.2 x10 3/uL) 0.44 H Baso # (Auto) (0.0 - 0.2 x10 3/uL) 0.04 Abs Immat Gran (auto) (0.00 - 0.03 x10 3/uL) 0.06 H Add Manual Diff NO Immature Gran % (0.0 - 2.0 %) 0.8 Nucleated RBC % (0 - 0 %) 0.0 Nucleated RBCs # (Man) (0.0 - 0.1 x10 3/uL) 0.00 Laboratory Tests 09/10 1430 Toxicology Random Vancomycin (mcg/mL) 15.7 Laboratory Tests 09/11 0445 Chemistry Magnesium (1.80 - 2.40 mg/dL) 1.90 Radiology data:Recent Impressions:ULTRASOUND - US RETROPERITONEAL COM 09/10 1311 Report Impression - Status: SIGNED Entered: 09/10/2022 1503 IMPRESSION: No acute findings. Impression By: Yared Mares M.D. Diagnosis, Assessment PlanConsultants: cardiology, endocrinology, hospitalist, infectious disease, podiatry Free Text DxA P NotesFree Text DxA P Notes:Impression: 1. Debility2. Infected right foot status post BKA3. Bacteremia4. Diabetes5. Hypertension 6. Anemia 07/2022: Echocardiogram with normal LVEF, grade 1 diastolic dysfunction, mildly dilated LA, and no significant valvular abnormalities Recommendation: Patient initially presented with DKA and sepsis. Diagnosed with right foot infection, underwent I D, now status post BKA. Patient had persistent bacteremia with MRSA, underwent JIMENA with negative findings of endocarditis. Patient now transferred to rehab for physical therapy. Known cardiac history ofhypertension and hyperlipidemia. Vital signs stable. Echocardiogram with normal LVEF, grade 1 diastolic dysfunction, mildly dilated LA, and no significant valvular abnormalities. Continue to monitor blood pressure trend. Continue wound care and IV antibiotic therapy. Continue PT/OT. Supportive care. 09/04: Patient complaining of shortness of breath, abdominal distention and lowerextremity edema. Renal function and electrolytes stable. Will give one-time dose of IV Lasix 40 mg. Blood pressure stable. Pending abdominal x-ray. Monitor intake and output. Check BMP in the morning. Supportive care. Plan ofcare discussed with patient, RN and Dr. Parham. 09/05: Patient responded well to IV Lasix, good urine output and improvement in shortness of breath. Chest x-ray ordered. Currently on Lasix 20 mg p.o. daily. Continue monitor renal function and electrolytes. Pending lower extremity Doppler for lower extremity edema. Continue PT/OT. Supportive care. Plan of care discussed with patient, RN and Dr. Parham. 09/08: Blood pressure has been elevated, started on Coreg 3.125 mg twice daily. Continue monitor blood pressure trend and adjust medication as needed. Still having left lower extremity edema, venous Doppler negative for DVT. continue gentle diuresis with Lasix 20 mg p.o. daily. Recommend Joan wrap. Patient remains anemic, plan for EGD/colonoscopy today. Supportive care. Plan of care discussed with patient, family, RN and Dr. Parham. 09/09: Patient doing well status post EGD/colonoscopy, negative findings for GI bleed. Blood pressure improving, increased on Coreg to 12.5 mg twice daily. Elevated creatinine noted, nephrology following. No new cardiac complaint. Continue wound care. Continue PT/OT. Supportive care. Plan of care discussed with patient, RN and Dr. Parham. 09/10: Blood pressure remained stable on current regimen of Coreg. Patient continue to have left lower extremity edema. Currently on Lasix 20 mg daily. Creatinine 1.9 today, continue to monitor. Patient's albumin level was 1.3, it is possible that patient's lower extremity edema could be related to hypoalbuminemia leading to third spacing. Continue PT/OT. Supportive care. Plan of care discussed with patient, RN and Dr. Parham. 09/11: Patient doing well from cardiac standpoint. Blood pressure well controlled. Improvement in lower extremity edema with elevating leg while in bed. Creatinine 2.0 today. Denies shortness of breath. Will hold diuretic for now and monitor renal function. Supportive care. Plan of care discussed with patient, RN and Dr. Parham. Napoleon Parham 09/13/22 1457:Diagnosis, Assessment PlanAdditional comments:Patient was seen and examined at bedside, agree with above assessment and plan as documented by nurse practitioner with modifications. Physical examination reveals pulmonary rales and lower extremity edema. Low albumin level. Could bethird spacing. Creatinine keeps going up. Hold Lasix. Will discuss with nephrology. at 1823 at 1502 RPT #:[id number] OF REPORTPRProgress dzue0517-20-16B25:29:00G.[id number] able for patient fomtSBXXADTNUUKTEI0214-77-96H38:23:40 [facility] 2022-09-11 09:23:00 [id number] rpgwLzUAVbKbmVzMWS9Djz1vqpkCY kfOfRqb1XlaW3+Kvif/Nuif/EWi8706-87-05D72:23:00 [facility] ([facility])Infectious Dis. Progress NoteREPORT#:[id number] REPORT STATUS: SignedDATE:09/11/22 TIME: 922 PATIENT: KARMA ROWLAND UNIT #: [id number]#: [id number] [address]: [birth year] AGE: 56 SEX: M ATTEND: Mj Vences [facility] AUTHOR: Merry Wolff MD * ALL edits or amendments must be made on the electronic/computer document * SubjectiveHPI:PT is a 56yr old male with history of diabetes mellitus type 2, hypertension whowas admitted with altered mental status and right-sided foot infection. According to him, he noticed a blister on his right foot around 3 days prior to presentation. His foot got progressively more swollen and erythema extended proximally to his lateral foot and ankle. CT abdomen and pelvis with contrast is concerning for possible prostate abscess. CT of lower extremity without contrast shows extensive soft tissue edema with mottled gas in the subcutaneous and intramuscular compartments of the foot, compatible with gas-forming infection. Patient's blood cultures have come back positive for MRSA in 2 out of 2 sets. PT has had persistent (+)Ve cx for MRSA 08/18- 08/22. He underwent a debridement of his foot on 08/19 and cx grew MRSA. PT was started on Vancomycin and clindamycin on 08/18. His MRI showed a prostate abscess. 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 Pt underwent a transrectal aspiration and unroofing of prostate abscess 08/26 and cx grew Citrobacter, Enterococcus, MRSA. He also hada BKA of right leg 08/28. JIMENA done 09/02. Pt was transferred to Rehab on 09/02. 09/11 doing well, no fever, no chillsPatient reports:Yes: pain controlled. No: cough, diarrhea, fever, headache, nausea, shortness of breath. Portions of this section were scribed by Jill Quintero on 09/11/22 at 1457 Objective GeneralVS/I O:Vital SignsDate Temp Pulse Resp B/P B/P Mean Pulse Ox HuK374/-09/11 97.5-97.9 70-81 16-18 137-153/71-79 92.8-103.6 96-99 Last [...] O2 Flow FiO2 Mean Ox Delivery Rate 09/11 0640 [...] Output, Urine 1000 PATIENT WEIGHT: Weight (lb): 165Weight (oz): 5.55Weight (kg): 75.000 Antibiotic start date:Antibiotic: vancomycinStart Date:09/03 Antibiotic: daptomycin Start Date:08/28-09/03 Antibiotic: cefepime Start Date:09/01- Antibiotic: merremStart Date:08/27-09/01 Physical ExamGeneral appearance: alert, awake, orientedHead/Eyes: atraumatic, clear cornea, EOMI, normal conjunctiva/sclera, normal eyelids/periorb, normocephalic, PERRLENT: moist mucosal membranes, normal dentitionNeck: full range of motionCardiovascular: normal heart sounds, regular rate rhythmRespiratory: clear to auscultation, aerating wellAbdomen: non-tender, normal bowel sounds, softExtremities: moves all, right BKA Left foot wound +dressing in placeNeuro/DIRECTOR OPERATING ROOM: alert, oriented X 3 Considered stroke alert: noSkin: dry, intact ResultsFindings/Data:Laboratory Tests 09/11 09/11 09/10 09/10 09/10 0541 [...] 1.90 09/10 09/10 09/10 09/10 09/09 1430 [facility] 0543 0547 1911Chemistry Sodium (134 - 147 mEq/L) 135 Potassium [...] MG/DL) 4.6 Magnesium (1.80 - 2.40 mg/dL) 1.89Hematology WBC (4.5 - 11.0 x10 3/uL) 8.6 [...] % (Auto) (14.0 - 32.0 %) 15.5 [place] % (Auto) (4.8 - 9.0 %) 8.5 Eos % (Auto) (0.3 - 3.7 %) 5.5 H Baso % (Auto) (0.0 - 2.0 %) 0.4 Neut # (Auto) (2.0 - 7.6 x10 3/uL) 5.94 Lymph # (Auto) (1.0 - 3.8 x10 3/uL) 1.33 Len[place] # (Auto) (0.1 - 0.8 x10 3/uL) 0.73 Eos # (Auto) (0.0 - 0.2 x10 3/uL) 0.47 H Baso # (Auto) (0.0 - 0.2 x10 3/uL) 0.03 Abs Immat Gran (auto) (0.00 - 0.03 0.06 Hx10 3/uL) Add Manual Diff NO Immature Gran % (0.0 - 2.0 %) 0.7 Nucleated RBC % (0 - 0 %) 0.0 Nucleated RBCs # (Man) (0.0 - 0.1 0.00x10 3/uL)Toxicology Random Vancomycin (mcg/mL) 15.7 09/09 09/09 09/09 09/09 1606 1526 1403 1049 Chemistry POC Glucose (70 - 110 MG/DL) 109 30 L 90 Toxicology Random Vancomycin (mcg/mL) 15.4 Recent Imp[facility]10 1311 Report Impression - Status: SIGNED Entered: 09/10/2022 1503 IMPRESSION: No acute findings. Impression By: Yared Mares M.D. Medication(s) Ordered:Anti-Infective Agents Sig/Jan Start time Last Medication Dose Route Stop Time Status Admin Vancomycin HCl 500 MG ONCE ONE 09/10 1600 DC 09/10 Sodium Chloride 100 ML IV 09/10 1659 1627 Cefepime HCl 1 GM Q8H 09/10 1500 AC 09/11 Sodium Chloride 10 ML IV 09/13 2359 0617 Miscellaneous 1 EACH ASDIR 09/03 0130 CKD Information IV 10/03 0129 Blood Formation,Coagulation Sig/Jan Start time Last Medication Dose Route Stop Time Status Admin Ferric Sodium 125 MG DAILY 09/09 09 AC 09/11 Gluconate Complex IV 09/16 0959 0921 Sodium Chloride 100 ML Heparin Sodium 5,000 UNIT Q8HR 09/02 2200 AC 09/11 SUBQ 10/02 2159 0611 Cardiovascular Drugs Sig/Jan [...] HCl 0.5 MG Q12H PRN PRN 09/10 0715 AC 09/10 IV 09/21 1300 2315 Oxycodone/ 2 TAB Q4H PRN PRN 09/10 0715 AC 09/10 Acetaminophen PO 10/10 1300 1359 Amitriptyline HCl 25 MG BEDTIME 09/04 2100 AC 09/10 PO 10/04 205 210 Acetaminophen 650 MG Q6H PRN PRN 09/01 [...] 10 ML ASDIR PRN 09/05 0630 AC 09/10 IV 10/05 0629 2114 Sterile Water [...] Sodium 40 MG Q12HR 09/05 09 AC 09/11 IV 10/05 0859 0920 Polyethylene Glycol 17 GM DAILY 09/05 09 AC 09/11 PO 10/05 0859 0918 Sennosides 8.6 [...] Glargine 5 UNIT BEDTIME 09/07 2100 AC 09/07 SUBQ 10/07 2059 2233 Insulin Human Lispro 0 AC HS 09/03 1630 AC 09/10 SUBQ 10/03 1629 1134 Glucagon 1 MG ASDIR PRN 09/03 1515 AC IM 10/03 1514 Insulin Human Lispro 5 UNIT AC 09/03 0730 AC 09/11 SUBQ 10/03 0729 0917 Local Anesthetics (Parenteral) Sig/Jan Start time Last Medication Dose Route Stop Time Status Admin Lidocaine 1 PATCH DAILY 09/03 09 AC 09/11 TOPICAL 10/03 0859 0918 Skin And Mucous Membrane Agent Sig/Jan Start time Last Medication Dose Route Stop Time Status Admin Zinc Oxide 1 APPLIC DAILY 09/04 09 AC 09/11 TOPICAL 10/04 0859 0920 Vitamins Sig/Jan Start time Last Medication Dose Route Stop Time Status Admin Folic Acid 2 MG DAILY 09/09 899 AC 09/11 PO 10/09 0859 0920 Multivitamins 1 TAB DAILY 09/09 09 AC 09/11 PO 10/09 0859 0920 Dose Instructions:(1)Sterile Water: DRESSING CHANGE Recent Impressions:[facility]10 1311 Report Impression - Status: SIGNED Entered: 09/10/2022 1503 IMPRESSION: No acute findings. Impression By: Yared Mares M.D. Portions of this section were scribed by Jill Quintero on 09/11/22 at 0923 Treatment Prophylaxis Treatment ProphylaxisLines: PICC Portions of this section were scribed by Jill Quintero on 09/11/22 at 0923 Diagnosis, Assessment PlanFree Text A P:*MRSA bacteremia-Initial blood cultures from 08/18/2022 positive for MRSA in 2 out of 2 sets.-Repeat blood cultures 08/21/2022 are already positive for MRSA in 2 out of 2 sets, suggesting persistent high-grade bacteremia.-TTE 08/18/2022 negative for any obvious vegetations.-08/28 neg-JIMENA 09/02 neg*Prostatic abscess-s/p transrectal aspiration and unroofing on 08/26-cx MRSA, citrobacter (r-cefazolin) Enterococcus raffinosus (S-amp,pcn, vancomycin), bacteriodes*ERIKA*Hyponatremia*Diabetic neuropathy*Diabetes mellitus type 2*Hypertension*anemia 09/08-cont on Cefepime and vancomycin til 5/3 for treatment of Prostate abscess-follow esr and crp-EGD today 09/09-on cefepime and vancomycin til 5/3 for treatment of prostate abscess 09/10on cefepime and vancomycin til 5/3 for treatment of prostate abscesscheck esr and crp in am 09/11on cefepime and vancomycin til 5/3 for treatment of prostate abscess; if pt is discharge before 5/3 can change to oral abxConsultants: cardiology, endocrinology, hospitalist, infectious disease, podiatry Portions of this section were scribed by Jill Quintero on 09/11/22 at 1457 at 0744 RPT #:[id number] OF REPORTPRProgress lfvw2170-87-79E16:23:00G.[id number] able for patient exkoUUHHNJRKKIAHGS8001-49-54L51:45:52 [facility] 2022-09-11 08:03:00 [id number] Di+MClaRynyf+mKvVSC6IPGm7CgLG Ai3NiLL3W43Yn/MF4+3/LK/Zrd35379-35-62G00:03:00 [facility] ([facility])Podiatry Progress NoteREPORT#:[id number] REPORT STATUS: SignedDATE:09/11/22 TIME: 0803 PATIENT: KARMA ROWLAND UNIT #: [id number]#: [id number] [address] AGE: 56 SEX: M ATTEND: Mj Vences MDADM AUTHOR: Liam Pedersen DPM * ALL edits or amendments must be made on the electronic/computer document * SubjectiveChief complaint:left heel ulcer. left ankle painPatient reports: no confusion, no cough, no dizziness, no fever, no heartburn, no itchingComments:pt with great attitude has less pain and swelling.happy with therapy Objective GeneralVS:Last Documented: Result Date Time Pulse Ox 96 09/11 0640 B/P 137/71 09/11 0640 B/P Mean 92.8 09/11 0640 O2 Delivery Nasal cannula 09/11 0640 Temp 36.5 09/11 0640 Pulse 81 09/11 0640 Resp 18 09/11 0640 O2 Flow Rate 2 09/08 1322 PATIENT WEIGHT: Weight (lb): 165Weight (oz): 5.55Weight (kg): 75.000 Medications:Active Meds + DC'd Last 24 HrsVancomycin HCl (VANCOMYCIN HCL) 500 MG ONCE ONE IV (DC) Sodium Chloride (SODIUM CHLORIDE 0.9% 100 ML) 100 MLCefepime HCl (MAXIPIME) 1 GM Q8H IV Sodium Chloride (SODIUM CHLORIDE) 10 MLGabapentin (NEURONTIN) 100 MG Q8HR PO Hydromorphone HCl (DILAUDID) 0.5 MG Q12H PRN PRN IV Oxycodone/Acetaminophen (PERCOCET 5/325MG TAB) 2 TAB Q4H PRN PRN PO Ferric Sodium Gluconate Complex (FERRLECIT) 125 MG DAILY IV Sodium Chloride (SODIUM CHLORIDE 0.9%) 100 MLFolic Acid (FOLIC ACID) 2 MG DAILY PO Multivitamins (TAB-A-MOHAN) 1 TAB DAILY PO Carvedilol (COREG) 12.5 MG C BK DIN PO Insulin Glargine (Semglee) 5 UNIT BEDTIME SUBQ Furosemide (LASIX 20MG INJ) 20 MG BLOOD-DOSE BETWEEN IV (CKD) Sodium Chloride (SODIUM CHLORIDE) 10 ML ASDIR IV Furosemide (LASIX) 20 MG DAILY PO Pantoprazole Sodium (PROTONIX) 40 MG Q12HR IV Polyethylene Glycol (MIRALAX) 17 GM DAILY PO Sennosides (Senna Lax 8.6 MG TABLET) 8.6 MG DAILY PO Sodium Chloride (SODIUM CHLORIDE) 10 ML ASDIR PRN IV Amitriptyline HCl (ELAVIL) 25 MG BEDTIME PO Zinc Oxide (ZINC OXIDE 30 GM OINTMENT) 1 APPLIC DAILY TOPICAL Sterile Water (WATER FOR IRRIGATION) DRESSING CHANGE ASDIR PRN IRR Insulin Human Lispro (HUMALOG) 0 AC HS SUBQ Dextrose/Water (DEXTROSE 10% IN WATER) 125 ML ASDIR PRN IV (CKD) Dextrose/Water (DEXTROSE 10% IN WATER) 250 ML ASDIR PRN IV (CKD) Glucagon (GLUCAGON) 1 MG ASDIR PRN IM Lidocaine (LIDODERM) 1 PATCH DAILY TOPICAL Insulin Human Lispro (HUMALOG) 5 UNIT AC SUBQ Miscellaneous Information (VANCOMYCIN PHARMACY TO DOSE) 1 EACH ASDIR IV (CKD) Heparin Sodium (HEPARIN 5000 UNITS/ML) 5,000 UNIT Q8HR SUBQ Cefepime HCl (MAXIPIME) 1 GM Q6H IV (DC) Sodium Chloride (SODIUM CHLORIDE) 10 MLAcetaminophen (TYLENOL) 650 MG Q6H PRN PRN PO Bisacodyl (DULCOLAX) 10 MG DAILY PRN PRN RECTAL Docusate Sodium (COLACE) 100 MG Q12H PRN PRN PO Hydralazine HCl (APRESOLINE) 10 MG Q6H PRN PRN IV Ondansetron HCl (ZOFRAN) 4 MG Q6H PRN PRN IV I O:24 hour I O ending at 0700: 09/11 0700 09/10 1900 Intake Total Output Total 1000 Balance -1000 Number 0 Incontinent Voids Number Voids 0 Output, Urine 1000 Dietitian nutrition assessmentThe data set between the solid lines has been imported from the dietitian's assessment. BMI Calculated: 26.7Nutrition related diagnosis: Nutrition diagnosis details: Nutrition problem: Altered nutrition labsNutrition etiology: DMNutrition signs and symptoms: HYPER/HYPOGLYCEMIA, A1C >14Nutrition prescription: CONTINUE DM DIETDietitian name: You Palmer, DIETAssessment completed: 09/09/22 Physical ExamGeneral appearance: alert, awake, oriented, conversational, mental status normalWound/incision: Location:left foot Site condition: dp/pt 2/4 left. light touch decreased left foot. ulcer starting at posterior left heel. eccymosis noted. early likely stage 1. left ankle has edema. pain with aggressive ROM left ankle.LE vascular pulse assess:2+ L posterior tibialis, 2+ L dorsalis pedis Considered stroke alert: noUlcer: Location: DTI dorsal left midfoot ResultsFindings/Data:Laboratory Tests: 09/11 09/11 09/10 09/10 09/10 0541 [...] H Toxicology Random Vancomycin (mcg/mL) 15.7 Recent Impressions:ULTRASOUND - US RETROPERITONEAL COM 09/10 1311 Report Impression - Status: SIGNED Entered: 09/10/2022 1503 IMPRESSION: No acute findings. Impression By: Yared Mares M.D. Diagnosis, Assessment PlanFree Text A P:DM with neuropathyearly decub ulcer left heelOA/edema left ankleDTI dorsal left midfoot zinc oxide to foot and heelfoam to heelon IV abxon PO gabapentinoffloading bootace wraps to ankle, only when OOB with therapy. Consultants: cardiology, endocrinology, hospitalist, infectious disease, podiatry at 0804 RPT #:[id number] OF REPORTPRProgress [id number]:03:00G.[id number] able for patient xlxpGJANTCDEJLWVJW5110-21-41Q84:05:34 [facility] 2022-09-11 07:59:00 [id number] EpmwWVpKnEhp1CqC8hjOlBxKQtDT/ EpRybXS10sWqOc8ug5QkciPc7mi0668-39-76P51:59:00 [facility] Progress NoteREPORT#:[id number] REPORT STATUS: SignedDATE:09/11/22 TIME: 0759 PATIENT: KARMA ROWLAND UNIT #: [id number]#: [id number] [address] AGE: 56 SEX: M ATTEND: Mj Vences MDADM AUTHOR: Kassie Avitia MD * ALL edits or amendments must be made on the electronic/computer document * SubjectiveHPI:Patient is a 56-year-old male with history of diabetes mellitus type 2 and hypertension who was initially admitted for altered mental status and right-sided foot infection. 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 The patient is anemic with current Hgb 7.1. He has received a total of 3 units pRBCs during this hospitalization. KUB on 09/04 was negative for acute GI process. The patient denies overt GIB, dark tarry stools, nausea, abdominal pain, or vomiting. He has never had EGD orcolonoscopy. 09/06: No complaints today. Hemoglobin stable. No overt GI bleed. Plan for colonoscopy and endoscopy on Thursday 09/07: No complaints today. No overt GI bleed. Planning for colonoscopy and endoscopy tomorrow 09/08: EGD mild gastritis. colonoscopy rectal polyp s/p snare. No other abnormalities 09/09: doing well. Seen at the gym. No bleeding. 09/10: Doing well. No bleeding. tolerating diet. Movig bowels 09/11: doing well. States his leg swelling is better. Tolerating diet. having normal BM Objective Physical ExamHEENT: atraumatic, normocephalicNeck: full range of motion, non-tenderRespiratory: symmetric expansion, no distressAbdomen: non-tender, normal bowel sounds, soft, no distention, no guardingExtremities: right BKA Considered stroke alert: noSkin: dry Diagnosis, Assessment PlanFree Text A P:1. Positive FOBT-and anemia: The patient denies overt GIB, dark tarry stools, nausea, abdominal pain, or vomiting. He is not on anticoagulation therapy.-Continue PPI. The patient has never had EGD or colonoscopy prior to this admissions/p EGD and colonoscopy. EGD showed mild gastritis. Colonoscopy showed rectal polyp that was resected by snare. no evidence of bleeding. Pathology of polyp came back as tubular adenoma. recommend repeating colonoscopy in 5 years Anemia likely secondary to chronic kidney disease.Can consider video capsule endoscopy as outpt Will follow Consultants: cardiology, endocrinology, hospitalist, infectious disease, podiatry at 0800 RPT #:[id number] OF REPORTPRProgress tloq1941-99-88X97:59:00G.[id number] able for patient iqefIBNVHAIMJHMNET8666-09-27A78:00:44 [facility] 2022-09-11 07:35:00 [id number] IPNnfk05YiwrJV/rvEV9a2AygzqOS tLEJRE8O/2wS6csSr8cZIGhimuN9192-26-56T07:35:00 [facility] ([facility])Nephrology Progress NoteREPORT#:[id number] REPORT STATUS: SignedDATE:09/11/22 TIME: 07 PATIENT: KARMA ROWLAND UNIT #: [id number]#: [id number] [address] [birth year] AGE: 56 SEX: M ATTEND: Mj Vences [facility] AUTHOR: Barrera Ramírez MD * ALL edits or amendments must be made on the electronic/computer document * SubjectiveChief complaint:Infected footHPI:Patient seen and evaluated on 09/09/2022, note started, records reviewed and orders placed on 09/08/2022, 56-year-old male with history of diabetes mellitus type 2, hypertension and peripheral vascular disease who was initially admitted to acute care with altered mental status and right foot infection/gangrene, 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 Patient had persistent anemia requiring blood transfusion. His fecal occult blood was positive and his creatinine was 1.2 and increased to 1.4 today, laboratories today showed hemoglobin 8.5, platelet 231, blood count 9.1, sodium 135, potassium 4.6, CO2 22, BUN 22, creatinine 1.4. Renal consult was requested for evaluation management of elevated BUN and creatinine and if his decreased GFR iscontributing to his anemia. Patient reports:Yes: complaints. Comments:Patient seen and evaluated, HPI no change from initial, feels okay. Review of SystemsConstitutional:Reports: fatigue. Denies: chills, fever. Skin:Reports: swelling. Denies: rash. Allergy/Immun:Denies: hives, itching. Eyes:Denies: redness, discharge. ENT:Denies: ear drainage, ear ringing. Respiratory:Denies: hemoptysis, SOB. Cardiovascular:Denies: chest pain. Objective GeneralVS/I O:Vital Signs: Date Time Temp Pulse Resp B/P B/P Pulse O2 O2 Flow FiO2 Mean Ox Delivery Rate 09/11 0640 [...] Output, Urine 1000 PATIENT WEIGHT: Weight (lb): 165Weight (oz): 5.55Weight (kg): 75.000 MedicationsActive Meds + DC'd Last 24 HrsVancomycin HCl (VANCOMYCIN HCL) 500 MG ONCE ONE IV (DC) Sodium Chloride (SODIUM CHLORIDE 0.9% 100 ML) 100 MLCefepime HCl (MAXIPIME) 1 GM Q8H IV Sodium Chloride (SODIUM CHLORIDE) 10 MLGabapentin (NEURONTIN) 100 MG Q8HR PO Hydromorphone HCl (DILAUDID) 0.5 MG Q12H PRN PRN IV Oxycodone/Acetaminophen (PERCOCET 5/325MG TAB) 2 TAB Q4H PRN PRN PO Ferric Sodium Gluconate Complex (FERRLECIT) 125 MG DAILY IV Sodium Chloride (SODIUM CHLORIDE 0.9%) 100 MLFolic Acid (FOLIC ACID) 2 MG DAILY PO Multivitamins (TAB-A-MOHAN) 1 TAB DAILY PO Carvedilol (COREG) 12.5 MG C BK DIN PO Insulin Glargine (Semglee) 5 UNIT BEDTIME SUBQ Furosemide (LASIX 20MG INJ) 20 MG BLOOD-DOSE BETWEEN IV (CKD) Sodium Chloride (SODIUM CHLORIDE) 10 ML ASDIR IV Furosemide (LASIX) 20 MG DAILY PO Pantoprazole Sodium (PROTONIX) 40 MG Q12HR IV Polyethylene Glycol (MIRALAX) 17 GM DAILY PO Sennosides (Senna Lax 8.6 MG TABLET) 8.6 MG DAILY PO Sodium Chloride (SODIUM CHLORIDE) 10 ML ASDIR PRN IV Amitriptyline HCl (ELAVIL) 25 MG BEDTIME PO Zinc Oxide (ZINC OXIDE 30 GM OINTMENT) 1 APPLIC DAILY TOPICAL Sterile Water (WATER FOR IRRIGATION) DRESSING CHANGE ASDIR PRN IRR Insulin Human Lispro (HUMALOG) 0 AC HS SUBQ Dextrose/Water (DEXTROSE 10% IN WATER) 125 ML ASDIR PRN IV (CKD) Dextrose/Water (DEXTROSE 10% IN WATER) 250 ML ASDIR PRN IV (CKD) Glucagon (GLUCAGON) 1 MG ASDIR PRN IM Lidocaine (LIDODERM) 1 PATCH DAILY TOPICAL Insulin Human Lispro (HUMALOG) 5 UNIT AC SUBQ Miscellaneous Information (VANCOMYCIN PHARMACY TO DOSE) 1 EACH ASDIR IV (CKD) Heparin Sodium (HEPARIN 5000 UNITS/ML) 5,000 UNIT Q8HR SUBQ Cefepime HCl (MAXIPIME) 1 GM Q6H IV (DC) Sodium Chloride (SODIUM CHLORIDE) 10 MLAcetaminophen (TYLENOL) 650 MG Q6H PRN PRN PO Bisacodyl (DULCOLAX) 10 MG DAILY PRN PRN RECTAL Docusate Sodium (COLACE) 100 MG Q12H PRN PRN PO Hydralazine HCl (APRESOLINE) 10 MG Q6H PRN PRN IV Ondansetron HCl (ZOFRAN) 4 MG Q6H PRN PRN IV Physical ExamGeneral appearance: alert, no acute distressHead/eyes: atraumatic, normocephalicENT: normal noseNeck: non-tender, supple/no meningismusCardiovascular: normal heart sounds, no rubRespiratory: aerating well, symmetric expansionAbdomen: non-tender, softGenitourinary: no flank painExtremities: pitting edema, non-tenderMusculoskeletal: no CVA tenderness, no tendernessNeuro/DIRECTOR OPERATING ROOM: alert, 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 Considered stroke alert: noSkin: dry, intact ResultsFindings/Data:Laboratory Tests 09/11 09/10 09/10 09/10 09/10 0541 1851 1715 1625 1007 Chemistry POC Glucose (70 - 110 MG/DL) 127 H 97 75 58 L 213 H 09/10 09/10 09/09 09/09 09/09 0545 [...] 09/09 09/08 09/08 1049 0524 0500 1954 182Chemistry Sodium (134 - 147 mEq/L) 136 Potassium [...] 700.5 H Lactate Dehydrogenase (87 - 241 193IUnits/L) 09/08 09/08 09/08 1611 1318 1033 Chemistry POC Glucose (70 - 110 MG/DL) 120 H 101 99 Laboratory Tests 09/10 09/09 09/08 09/08 0545 0500 2039 1828 Hematology WBC (4.5 - 11.0 x10 [...] (Auto) (14.0 - 32.0 %) 15.5 16.1 [place] % (Auto) (4.8 - 9.0 %) 8.5 9.2 H Eos % (Auto) (0.3 - 3.7 %) 5.5 H 4.7 H Baso % (Auto) (0.0 - 2.0 %) 0.4 0.4 Neut # (Auto) (2.0 - 7.6 x10 3/uL) 5.94 6.38 Lymph # (Auto) (1.0 - 3.8 x10 3/uL) 1.33 1.49 [place] # (Auto) (0.1 - 0.8 x10 3/uL) 0.73 0.85 H Eos # (Auto) (0.0 - 0.2 x10 3/uL) 0.47 H 0.43 H Baso # (Auto) (0.0 - 0.2 x10 3/uL) 0.03 0.04 Abs Immat Gran (auto) (0.00 - 0.03 x10 3/uL) 0.06 H 0.05 H Add Manual Diff NO NO Immature Gran % (0.0 - 2.0 %) 0.7 0.5 Nucleated RBC % (0 - 0 %) 0.0 0.0 Nucleated RBCs # (Man) (0.0 - 0.1 x10 3/uL) 0.00 0.00 Retic Count (auto) (0.3 - 2.3 %) 1.3 Haptoglobin (29 - 370 mg/dL) 292 Laboratory Tests 09/10 09/09 09/08 1430 1403 1045 Toxicology Random Vancomycin (mcg/mL) 15.7 15.4 15.8 Recent Impressions:ULTRASOUND - US RETROPERITONEAL COM 09/10 1311 Report Impression - Status: SIGNED Entered: 09/10/2022 1503 IMPRESSION: No acute findings. Impression By: Yared Mares M.D. Laboratory Tests 09/11 09/10 09/10 09/10 09/10 0541 1851 1715 1625 1007 Chemistry POC Glucose (70 - 110 MG/DL) 127 H 97 75 58 L 213 H Laboratory Tests 09/10 1430 Toxicology Random Vancomycin (mcg/mL) 15.7 Diagnosis, Assessment PlanFree Text A P:Patient seen and evaluated, discussed with care team, images and laboratories reviewed.Diabetes mellitus: Insulin: Monitor blood sugar closely and adjust medications as needed, followed by endocrinology.Hypertension: Blood pressure is not well controlled, increase Coreg to 12.5 mg p.o. twice daily: Monitor blood pressure closely and adjust medications as neededRight foot gangrene/infection status post right BKAAnemia: Status post EGD and colonoscopy which were negative for active GI bleeding, patient had work-up in July 2022 which showed very high B12, normal folate, very low iron saturation but very high ferritin which was likely relatedto his infection, likely patient is very iron deficient, will repeat lab and give IV iron if needed. We will check serum immunofixation.Acute kidney injury: We will check renal bladder ultrasound, check postvoid residual, check urine protein creatinine ratioHypomagnesemia: We will supplement09/10/2022 laboratory this morning showed sodium 135, potassium 4.2, CO2 21, BUN 25, creatinine 1.9 continues to worsen, etiology unclear, however his development some eosinophilia not sure if he is developing AIN, suggest changingcefepime to a different class of antibiotic if possible, will check renal bladder ultrasound09/11/2022 laboratory this morning showed sodium 134, potassium 4.3, CO2 22, BUN 26, creatinine 2 up from 1.9, hopefully creatinine is plateauing, renal ultrasound negative.Consultants: cardiology, endocrinology, hospitalist, infectious disease, podiatry at 0939 RPT #:[id number] OF REPORTPRProgress [id number]:35:00G.[id number] able for patient akgqIFQFJCFOOIPCAO0592-96-02K98:40:21 [facility] 2022-09-11 06:12:00 [id number] kXm0o898NpGJm+PlpQ4j4inEj57Vt ZGwZxd2EZCjrwTTVxWTHcJuZkVq4694-59-46N48:12:00 [facility] ([facility])Pain Management Progress NoteREPORT#:[id number] REPORT STATUS: SignedDATE:09/11/22 TIME: 611 PATIENT: KARMA ROWLAND UNIT #: [id number]#: [id number] [address] [birth year] AGE: 56 SEX: M ATTEND: Mj Vences [facility] AUTHOR: Charlie Quiroga RESEARCH MANUFACTURING OPERATOR * ALL edits or amendments must be made on the electronic/computer document * Charlie Quiroga 09/11/2212:SubjectiveChief complaint:Patient seen and examined. Chart/MAR reviewed. Patient did better with pain control after medications were adjusted. Had a BM yesterday morning. No side effects. Patient being seen for Acute postoperative pain, right foot and anklegangrene, requiring BKA, Constipation Patient is still requiring medications to help with managing currentproblems. Patient is requiring IV narcotics to help manage breakthrough pain No fever/chills, chest pain, orthopnea, nausea/vomiting, pruritus, orhallucinations.14 point ROS undertaken unremarkable except as noted Objective GeneralVS/I O:Vital Signs Date Temp Pulse Resp B/P B/P Mean Pulse Ox FiO2 09/10 97.5-98.2 70-80 16-18 147-153/71-79 96.5-103.6 96-99 Last Documented: Result Date Time Pulse Ox 96 09/10 2314 B/P 152/78 09/10 2314 B/P Mean 102.5 04/19 2314 Temp 97.5 09/10 2313 Pulse 77 09/10 2313 Resp 16 09/10 2313 O2 Delivery Room air 09/10 1855 O2 Flow Rate 2 09/08 1322 24 hour I O ending at 0700: 09/11 0700 09/10 1900 Intake Total Output Total 350 Balance -350 Number 0 Incontinent Voids Number Voids 0 Output, Urine 350 PATIENT WEIGHT: Weight (lb): 165Weight (oz): 5.55Weight (kg): 75.000 Medications:Active Meds + DC'd Last 24 HrsVancomycin HCl (VANCOMYCIN HCL) 500 MG ONCE ONE IV (DC) Sodium Chloride (SODIUM CHLORIDE 0.9% 100 ML) 100 MLCefepime HCl (MAXIPIME) 1 GM Q8H IV Sodium Chloride (SODIUM CHLORIDE) 10 MLGabapentin (NEURONTIN) 100 MG Q8HR PO Hydromorphone HCl (DILAUDID) 0.5 MG Q12H PRN PRN IV Oxycodone/Acetaminophen (PERCOCET 5/325MG TAB) 2 TAB Q4H PRN PRN PO Ferric Sodium Gluconate Complex (FERRLECIT) 125 MG DAILY IV Sodium Chloride (SODIUM CHLORIDE 0.9%) 100 MLFolic Acid (FOLIC ACID) 2 MG DAILY PO Multivitamins (TAB-A-MOHAN) 1 TAB DAILY PO Carvedilol (COREG) 12.5 MG C BK DIN PO Hydromorphone HCl (DILAUDID) 0.5 MG Q6H PRN PRN IV (DC) Insulin Glargine (Semglee) 5 UNIT BEDTIME SUBQ Furosemide (LASIX 20MG INJ) 20 MG BLOOD-DOSE BETWEEN IV (CKD) Sodium Chloride (SODIUM CHLORIDE) 10 ML ASDIR IV Furosemide (LASIX) 20 MG DAILY PO Pantoprazole Sodium (PROTONIX) 40 MG Q12HR IV Polyethylene Glycol (MIRALAX) 17 GM DAILY PO Sennosides (Senna Lax 8.6 MG TABLET) 8.6 MG DAILY PO Sodium Chloride (SODIUM CHLORIDE) 10 ML ASDIR PRN IV Amitriptyline HCl (ELAVIL) 25 MG BEDTIME PO Zinc Oxide (ZINC OXIDE 30 GM OINTMENT) 1 APPLIC DAILY TOPICAL Sterile Water (WATER FOR IRRIGATION) DRESSING CHANGE ASDIR PRN IRR Insulin Human Lispro (HUMALOG) 0 AC HS SUBQ Dextrose/Water (DEXTROSE 10% IN WATER) 125 ML ASDIR PRN IV (CKD) Dextrose/Water (DEXTROSE 10% IN WATER) 250 ML ASDIR PRN IV (CKD) Glucagon (GLUCAGON) 1 MG ASDIR PRN IM Hydrocodone Bitart/Acetaminophen (NORCO 10/325) 1 TAB Q4H PRN PRN PO (DC) Lidocaine (LIDODERM) 1 PATCH DAILY TOPICAL Insulin Human Lispro (HUMALOG) 5 UNIT AC SUBQ Miscellaneous Information (VANCOMYCIN PHARMACY TO DOSE) 1 EACH ASDIR IV (CKD) Heparin Sodium (HEPARIN 5000 UNITS/ML) 5,000 UNIT Q8HR SUBQ Cefepime HCl (MAXIPIME) 1 GM Q6H IV (DC) Sodium Chloride (SODIUM CHLORIDE) 10 MLAcetaminophen (TYLENOL) 650 MG Q6H PRN PRN PO Bisacodyl (DULCOLAX) 10 MG DAILY PRN PRN RECTAL Docusate Sodium (COLACE) 100 MG Q12H PRN PRN PO Hydralazine HCl (APRESOLINE) 10 MG Q6H PRN PRN IV Ondansetron HCl (ZOFRAN) 4 MG Q6H PRN PRN IV Physical ExamGeneral appearance: alert, awake, oriented, pleasantHead/eyes: atraumatic, EOMI, normocephalic, normal conjunctiva/sclera, PERRLAENT: normal ear left, normal ear right, normal nose, normal pharynx, moist mucosal membranesNeck: full range of motion, no lymphadenopathy, supple/no meningismusCardiovascular: regular rate rhythmRespiratory: clear to auscultation, no distress, aerating wellAbdomen: soft, non-tender, no distention, active bowel sounds in all quarants. Abdomen quadrantsLLQ normal bowel sounds, LUQ normal bowel sounds, RLQ normal bowel sounds, RUQ normal bowel soundsExtremities: moves all, no edema, pedal pulsesNeuro/DIRECTOR OPERATING ROOM: 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, no sensory deficits, CNII-XII grossly intact Considered stroke alert: noSkin: normal turgorPsychiatry: normal affect ResultsFindings/data:Laboratory Tests: 09/11 09/10 09/10 09/10 09/10 0541 1851 1715 1625 1430 Chemistry POC Glucose (70 - 110 MG/DL) 127 H 97 75 58 L Toxicology Random Vancomycin (mcg/mL) 15.7 09/10 1007 Chemistry POC Glucose (70 - 110 MG/DL) 213 H Recent Impressions:ULTRASOUND - US RETROPERITONEAL COM 09/10 1311 Report Impression - Status: SIGNED Entered: 09/10/2022 1503 IMPRESSION: No acute findings. Impression By: Yared - Bishop Mares M.D. Diagnosis, Assessment PlanFree text A P:A/P:Patient is a 56 year old male who presents with: Recent prostate abscess-Status post TURP with unroofing of abscess-IV antibiotics with vancomycin until 09-24-2022 Acute postoperative pain, right foot and ankle gangrene, requiring BKA-Patient is at risk for further amputations or loss of limb due to comorbid conditions-Status post right BKA 08/28/2022-DC Sheldon 10/325 1 tablet p.o. every 4 hours as needed pain scale 4 10-Tylenol 650 mg p.o. every 6 hours as needed pain scale 1 3-Dilaudid 0.5 mg IV every 12 hours as needed pain scale 7 10, second line therapy-patient will require close monitoring while using IV narcotics for any deleterious effect-Percocet 10/325mg every 4 hours as needed, pain scale 4-10 (09/10)-Lidoderm patch to left ankle daily-IV antibiotics with vancomycin until 09-24-2022-Local wound care-manageable Diabetic peripheral neuropathy-amitriptyline 25mg PO QHS-Gabapentin 100mg every 8 hours (09/10)-manageable Hypertension-We will monitor hypertension and tachycardia due to pain, and hypotension as well as bradycardia secondary over sedation with narcotics-Hydralazine as needed Elevated LFTs-08/20/22-AST 51, ALT 22-09/03/2022-AST 15, ALT 7-Patient will require close monitoring since he is using narcotics with Tylenol Impaired functional mobility, balance, gait, and endurance-PT/OT Antalgic/Impaired gait-PT/OT-Improve strength, endurance, self-care, gait, balance, ADLs-Fall precautions per unit protocol-Pain medications as outlined above Constipation-We will monitor while utilizing opioid narcotic medications.-Adequate fluid intake also discussed.-Colace 100 mg p.o. twice daily as needed-Dulcolax 10 mg rectally daily as needed-Senna lax 8.6mg daily-Miralax 17gm daily-manageable Disposition: Past Medical History: Prostate abscess, right foot foot and ankle gangrene, diabetes, hypertension, hyperlipidemiaPast Surgical History: TURP, right BKAFamily History: NoncontributorySocial History: Denies tobacco, alcohol, or drug useAllergies: NKDA Patient has failed conservative medical therapy.Patient will require monitoring while utilize narcotic medications for any adverse effects, and will adjust as neededPlan of care discussed with patient and nurseAll diagnostics of last 24 hours been reviewed. Risks versus benefits of opioid medications were reviewed to include, but not limited to respiratory depression, accidental overdose, altered mental status, sudden , constipation which could result in bowel obstruction, seizures, withdrawal, dependency addiction, risk for falls. Case discussed with Dr Ng whom agrees. Thank you for the consultation. [place] DISABILITY HEARING OFFICER:-database searched, no information found Kingsley Ng 09/29/22 1745:Attestations Physician AttestationAgree w/findings plan:The patient was seen and examined by Charlie Quiroga. I personally developed thecare plan, which was continued by the mid-level provider. I was immediately available. at 1247 at 1741 RPT #:[id number] OF REPORTPRProgress [id number]:12:00G.[id number] able for patient hejvFKFHYQFQYKMOIY8658-93-41E38:48:26 [facility] 2022-09-10 19:53:00 [id number] [id number]X73:53:00 [facility])Podiatry Progress NoteREPORT#:[id number] REPORT STATUS: SignedDATE:09/10/22 TIME: 1952 PATIENT: KARMA ROWLAND UNIT #: [id number]#: [id number] [address] AGE: 56 SEX: M ATTEND: Mj Vences MDADM AUTHOR: Liam PedersenM * ALL edits or amendments must be made on the electronic/computer document * SubjectiveChief complaint:left heel ulcer. left ankle painPatient reports: no confusion, no cough, no diarrhea, no fever, no heartburn, nonausea Objective GeneralVS:Last Documented: Result Date Time Pulse Ox 97 09/10 1854 B/P 153/79 09/10 1854 B/P Mean 103.6 09/10 1854 O2 Delivery Room air 09/10 1854 Temp 36.4 09/10 1854 Pulse 70 09/10 1854 Resp 17 09/10 1854 O2 Flow Rate 2 09/08 1322 PATIENT WEIGHT: Weight (lb): 165Weight (oz): 5.55Weight (kg): 75.000 Medications:Active Meds + DC'd Last 24 HrsVancomycin HCl (VANCOMYCIN HCL) 500 MG ONCE ONE IV (DC) Sodium Chloride (SODIUM CHLORIDE 0.9% 100 ML) 100 MLCefepime HCl (MAXIPIME) 1 GM Q8H IV Sodium Chloride (SODIUM CHLORIDE) 10 MLGabapentin (NEURONTIN) 100 MG Q8HR PO Hydromorphone HCl (DILAUDID) 0.5 MG Q12H PRN PRN IV Oxycodone/Acetaminophen (PERCOCET 5/325MG TAB) 2 TAB Q4H PRN PRN PO Ferric Sodium Gluconate Complex (FERRLECIT) 125 MG DAILY IV Sodium Chloride (SODIUM CHLORIDE 0.9%) 100 MLFolic Acid (FOLIC ACID) 2 MG DAILY PO Multivitamins (TAB-A-MOHAN) 1 TAB DAILY PO Carvedilol (COREG) 12.5 MG C BK DIN PO Hydromorphone HCl (DILAUDID) 0.5 MG Q6H PRN PRN IV (DC) Insulin Glargine (Lantus/Semglee) 5 UNIT BEDTIME SUBQ Furosemide (LASIX 20MG INJ) 20 MG BLOOD-DOSE BETWEEN IV (CKD) Sodium Chloride (SODIUM CHLORIDE) 10 ML ASDIR IV Furosemide (LASIX) 20 MG DAILY PO Pantoprazole Sodium (PROTONIX) 40 MG Q12HR IV Polyethylene Glycol (MIRALAX) 17 GM DAILY PO Sennosides (Senna Lax 8.6 MG TABLET) 8.6 MG DAILY PO Sodium Chloride (SODIUM CHLORIDE) 10 ML ASDIR PRN IV Amitriptyline HCl (ELAVIL) 25 MG BEDTIME PO Zinc Oxide (ZINC OXIDE 30 GM OINTMENT) 1 APPLIC DAILY TOPICAL Sterile Water (WATER FOR IRRIGATION) DRESSING CHANGE ASDIR PRN IRR Insulin Human Lispro (HUMALOG) 0 AC HS SUBQ Dextrose/Water (DEXTROSE 10% IN WATER) 125 ML ASDIR PRN IV (CKD) Dextrose/Water (DEXTROSE 10% IN WATER) 250 ML ASDIR PRN IV (CKD) Glucagon (GLUCAGON) 1 MG ASDIR PRN IM Hydrocodone Bitart/Acetaminophen (NORCO 10/325) 1 TAB Q4H PRN PRN PO (DC) Lidocaine (LIDODERM) 1 PATCH DAILY TOPICAL Insulin Human Lispro (HUMALOG) 5 UNIT AC SUBQ Miscellaneous Information (VANCOMYCIN PHARMACY TO DOSE) 1 EACH ASDIR IV (CKD) Heparin Sodium (HEPARIN 5000 UNITS/ML) 5,000 UNIT Q8HR SUBQ Cefepime HCl (MAXIPIME) 1 GM Q6H IV (DC) Sodium Chloride (SODIUM CHLORIDE) 10 MLAcetaminophen (TYLENOL) 650 MG Q6H PRN PRN PO Bisacodyl (DULCOLAX) 10 MG DAILY PRN PRN RECTAL Docusate Sodium (COLACE) 100 MG Q12H PRN PRN PO Hydralazine HCl (APRESOLINE) 10 MG Q6H PRN PRN IV Ondansetron HCl (ZOFRAN) 4 MG Q6H PRN PRN IV I O:24 hour I O ending at 0700: 09/10 0700 09/09 1900 Intake Total 715 Output Total Balance 715 Intake, Oral 715 Dietitian nutrition assessmentThe data set between the solid lines has been imported from the dietitian's assessment. BMI Calculated: 26.7Nutrition related diagnosis: Nutrition diagnosis details: Nutrition problem: Altered nutrition labsNutrition etiology: DMNutrition signs and symptoms: HYPER/HYPOGLYCEMIA, A1C >14Nutrition prescription: CONTINUE DM DIETDietitian name: You Palmer, DIETAssessment completed: 09/09/22 Physical ExamGeneral appearance: alert, awake, orientedWound/incision: Location:left foot Site condition: dp/pt 2/4 left. light touch decreased left foot. ulcer starting at posterior left heel. eccymosis noted. early likely stage 1. left ankle has edema. pain with aggressive ROM left ankle.LE vascular pulse assess:2+ L posterior tibialis, 2+ L dorsalis pedis Considered stroke alert: noUlcer: Location: DTI dorsal left midfoot ResultsFindings/Data:Laboratory Tests: 09/10 09/10 09/10 09/10 09/10 1851 1715 1625 1430 1007 Chemistry POC Glucose (70 - 110 MG/DL) 97 75 58 L 213 H Toxicology Random Vancomycin (mcg/mL) 15.7 09/10 09/10 0545 0541 Chemistry Sodium (134 - 147 [...] % (Auto) (14.0 - 32.0 %) 15.5 Len[place] % (Auto) (4.8 - 9.0 %) 8.5 Eos % (Auto) (0.3 - 3.7 %) 5.5 H Baso % (Auto) (0.0 - 2.0 %) 0.4 Neut # (Auto) (2.0 - 7.6 x10 3/uL) 5.94 Lymph # (Auto) (1.0 - 3.8 x10 3/uL) 1.33 Lenoir # (Auto) (0.1 - 0.8 x10 3/uL) 0.73 Eos # (Auto) (0.0 - 0.2 x10 3/uL) 0.47 H Baso # (Auto) (0.0 - 0.2 x10 3/uL) 0.03 Abs Immat Gran (auto) (0.00 - 0.03 x10 3/uL) 0.06 H Add Manual Diff NO Immature Gran % (0.0 - 2.0 %) 0.7 Nucleated RBC % (0 - 0 %) 0.0 Nucleated RBCs # (Man) (0.0 - 0.1 x10 3/uL) 0.00 Recent Impressions:ULTRASOUND - US RETROPERITONEAL COM 09/10 1311 Report Impression - Status: SIGNED Entered: 09/10/2022 7951 IMPRESSION: No acute findings. Impression By: Yared Mares M.D. Diagnosis, Assessment PlanFree Text A P:DM with neuropathyearly decub ulcer left heelOA/edema left ankleDTI dorsal left midfoot zinc oxide to foot and heelfoam to heelon IV abxoffloading bootace wraps to ankle, only when OOB with therapy. Consultants: cardiology, endocrinology, hospitalist, infectious disease, podiatry at 1954 RPT #:[id number] OF REPORTPRProgress [id number]:53:00G.[id number] able for patient kaduEOMGSWRVXIPAUU8642-56-46L00:54:51 [facility] 2022-09-10 17:52:00 [id number]5w+7 TfM8djyYX2Tvjgn7pcH0XIwUOu19276-85-86K17:52:00 [facility])Endocrinology Progress NoteREPORT#:[id number] REPORT STATUS: SignedDATE:09/10/22 TIME: 1751 PATIENT: KARMA ROWLAND UNIT #: [id number]#: [id number] [address] AGE: 56 SEX: M ATTEND: Mj Vences MDADM AUTHOR: Braxton Chapin MD * ALL edits or amendments must be made on the electronic/computer document * SubjectivePatient reports: no complaints Objective GeneralVS:Last Documented: Result Date Time Pulse Ox 99 09/10 162 B/P 147/78 09/10 162 B/P Mean 100.9 09/10 162 O2 Delivery Room air 09/10 162 Temp 36.6 09/10 1627 Pulse 75 09/10 1627 Resp 18 09/10 1627 O2 Flow Rate 2 09/08 1322 PATIENT WEIGHT: Weight (lb): 165Weight (oz): 5.55Weight (kg): 75.000 Medications:Active Meds + DC'd Last 24 HrsVancomycin HCl (VANCOMYCIN HCL) 500 MG ONCE ONE IV (DC) Sodium Chloride (SODIUM CHLORIDE 0.9% 100 ML) 100 MLCefepime HCl (MAXIPIME) 1 GM Q8H IV Sodium Chloride (SODIUM CHLORIDE) 10 MLGabapentin (NEURONTIN) 100 MG Q8HR PO Hydromorphone HCl (DILAUDID) 0.5 MG Q12H PRN PRN IV Oxycodone/Acetaminophen (PERCOCET 5/325MG TAB) 2 TAB Q4H PRN PRN PO Ferric Sodium Gluconate Complex (FERRLECIT) 125 MG DAILY IV Sodium Chloride (SODIUM CHLORIDE 0.9%) 100 MLFolic Acid (FOLIC ACID) 2 MG DAILY PO Multivitamins (TAB-A-MOHAN) 1 TAB DAILY PO Carvedilol (COREG) 12.5 MG C BK DIN PO Hydromorphone HCl (DILAUDID) 0.5 MG Q6H PRN PRN IV (DC) Insulin Glargine (Lantus/Semglee) 5 UNIT BEDTIME SUBQ Furosemide (LASIX 20MG INJ) 20 MG BLOOD-DOSE BETWEEN IV (CKD) Sodium Chloride (SODIUM CHLORIDE) 10 ML ASDIR IV Furosemide (LASIX) 20 MG DAILY PO Pantoprazole Sodium (PROTONIX) 40 MG Q12HR IV Polyethylene Glycol (MIRALAX) 17 GM DAILY PO Sennosides (Senna Lax 8.6 MG TABLET) 8.6 MG DAILY PO Sodium Chloride (SODIUM CHLORIDE) 10 ML ASDIR PRN IV Amitriptyline HCl (ELAVIL) 25 MG BEDTIME PO Zinc Oxide (ZINC OXIDE 30 GM OINTMENT) 1 APPLIC DAILY TOPICAL Sterile Water (WATER FOR IRRIGATION) DRESSING CHANGE ASDIR PRN IRR Insulin Human Lispro (HUMALOG) 0 AC HS SUBQ Dextrose/Water (DEXTROSE 10% IN WATER) 125 ML ASDIR PRN IV (CKD) Dextrose/Water (DEXTROSE 10% IN WATER) 250 ML ASDIR PRN IV (CKD) Glucagon (GLUCAGON) 1 MG ASDIR PRN IM Hydrocodone Bitart/Acetaminophen (NORCO 10/325) 1 TAB Q4H PRN PRN PO (DC) Lidocaine (LIDODERM) 1 PATCH DAILY TOPICAL Insulin Human Lispro (HUMALOG) 5 UNIT AC SUBQ Miscellaneous Information (VANCOMYCIN PHARMACY TO DOSE) 1 EACH ASDIR IV (CKD) Heparin Sodium (HEPARIN 5000 UNITS/ML) 5,000 UNIT Q8HR SUBQ Cefepime HCl (MAXIPIME) 1 GM Q6H IV (DC) Sodium Chloride (SODIUM CHLORIDE) 10 MLAcetaminophen (TYLENOL) 650 MG Q6H PRN PRN PO Bisacodyl (DULCOLAX) 10 MG DAILY PRN PRN RECTAL Docusate Sodium (COLACE) 100 MG Q12H PRN PRN PO Hydralazine HCl (APRESOLINE) 10 MG Q6H PRN PRN IV Ondansetron HCl (ZOFRAN) 4 MG Q6H PRN PRN IV Physical ExamGeneral appearance: alert, awake Diagnosis, Assessment PlanHospital course to date:Laboratory Tests: 09/10 09/10 09/10 09/10 09/10 1715 1625 1430 1007 0545Chemistry Sodium (134 - 147 mEq/L) 135 Potassium [...] MG/DL) 4.6 Magnesium (1.80 - 2.40 mg/dL) 1.89Hematology WBC (4.5 - 11.0 x10 3/uL) 8.6 [...] % (Auto) (14.0 - 32.0 %) 15.5 Lenoir % (Auto) (4.8 - 9.0 %) 8.5 Eos % (Auto) (0.3 - 3.7 %) 5.5 H Baso % (Auto) (0.0 - 2.0 %) 0.4 Neut # (Auto) (2.0 - 7.6 x10 3/uL) 5.94 Lymph # (Auto) (1.0 - 3.8 x10 3/uL) 1.33 Lenoir # (Auto) (0.1 - 0.8 x10 3/uL) 0.73 Eos # (Auto) (0.0 - 0.2 x10 3/uL) 0.47 H Baso # (Auto) (0.0 - 0.2 x10 3/uL) 0.03 Abs Immat Gran (auto) (0.00 - 0.03 0.06 Hx10 3/uL) Add Manual Diff NO Immature Gran % (0.0 - 2.0 %) 0.7 Nucleated RBC % (0 - 0 %) 0.0 Nucleated RBCs # (Man) (0.0 - 0.1 0.00x10 3/uL)Toxicology Random Vancomycin (mcg/mL) 15.7 09/10 09/09 0541 1911 Chemistry POC Glucose (70 - 110 MG/DL) 154 H 102 Recent Impressions:ULTRASOUND - US RETROPERITONEAL COM 09/10 1311 Report Impression - Status: SIGNED Entered: 09/10/2022 1503 IMPRESSION: No acute findings. Impression By: Yared Mares M.D. Laboratory Tests: 09/09 09/09 09/09 09/09 09/09 [...] % (Auto) (14.0 - 32.0 %) 16.1 Lenoir % (Auto) (4.8 - 9.0 %) 9.2 H Eos % (Auto) (0.3 - 3.7 %) 4.7 H Baso % (Auto) (0.0 - 2.0 %) 0.4 Neut # (Auto) (2.0 - 7.6 x10 3/uL) 6.38 Lymph # (Auto) (1.0 - 3.8 x10 3/uL) 1.49 Lenoir # (Auto) (0.1 - 0.8 x10 3/uL) 0.85 H Eos # (Auto) (0.0 - 0.2 x10 3/uL) 0.43 H Baso # (Auto) (0.0 - 0.2 x10 3/uL) 0.04 Abs Immat Gran (auto) (0.00 - 0.03 x10 3/uL) 0.05 H Add Manual Diff NO Immature Gran % (0.0 - 2.0 %) 0.5 Nucleated RBC % (0 - 0 %) 0.0 Nucleated RBCs # (Man) (0.0 - 0.1 x10 3/uL) 0.00 Retic Count (auto) (0.3 - 2.3 [...] (Auto) (14.0 - 32.0 %) 13.7 L Lenoir % (Auto) (4.8 - 9.0 %) 7.2 Eos % (Auto) (0.3 - 3.7 %) 4.8 H Baso % (Auto) (0.0 - 2.0 %) 0.3 Neut # (Auto) (2.0 - 7.6 x10 3/uL) 6.64 Lymph # (Auto) (1.0 - 3.8 x10 3/uL) 1.24 Lenoir # (Auto) (0.1 - 0.8 x10 3/uL) 0.65 Eos # (Auto) (0.0 - 0.2 x10 3/uL) 0.43 H Baso # (Auto) (0.0 - 0.2 x10 3/uL) 0.03 Abs Immat Gran (auto) (0.00 - 0.03 x10 3/uL) 0.06 H Add Manual Diff NO Immature Gran % (0.0 - 2.0 %) 0.7 Nucleated RBC % (0 - 0 %) 0.0 Nucleated RBCs # (Man) (0.0 - 0.1 x10 3/uL) 0.00 Laboratory Tests: 09/07 09/07 09/07 09/07 09/07 1554 1137 1127 0618 0510 Chemistry Creatinine (0.6 - 1.3 mg/dL) 1.4 H POC Glucose (70 - 110 MG/DL) 112 H 51 L 42 L 135 H Hematology Hgb (12.5 - 16.9 g/dL) 8.4 L Hct (37.5 - 50.7 %) 26.2 L Toxicology Random Vancomycin (mcg/mL) 14.7 09/06 09/06 0926 2108 Chemistry POC Glucose (70 - 110 [...] 1739 Occult Blood - COMP STOOL Recent Impressions:RADIOLOGY - XR ABDOMEN 1V (KUB) 09/04 1648 Report Impression - Status: SIGNED Entered: 09/04/2022 1757 IMPRESSION: Benign appearance of the abdomen.Impression By: [email or web address] - Roger Parra M.D.ULTRASOUND - [facility]/LTD 09/05 1146 Report Impression - Status: SIGNED Entered: 09/05/2022 1333 IMPRESSION: 1. No evidence of deep vein thrombosis. 2. Complex heterogeneous hypoechoic fluid collection in the left calf region measuring 8.4 x 2.8 x 2.5 cm; there is no internal vascularity or peripheral hyperemia. May represent a hematoma.Impression By: TipABJames - Mert Ga M.D.RADIOLOGY - XR CHEST 1 V 09/05 1432 Report Impression - Status: SIGNED Entered: 09/05/2022 1515 IMPRESSION: Minimal bibasilar pulmonary opacitiesImpression By: Yared Mares M.D. Laboratory Tests: 09/04 09/04 09/04 09/04 09/04 [...] COLB STOOL 1.Diabetes mellitus type 2 uncontrolled complications.2. Status post right BKA3. Status post gangrene of the right foot.4. Sepsis5. Prostate abscess.6. AnemiaBlood sugar 156-213 mg/dL.H/H 8.6/26.1Adjust insulin dose.PT and OT. at 1752 RPT #:[id number] OF REPORTPRProgress [id number]:52:00G.[id number] able for patient pbmlTPGGBVLWVVBBWF4321-37-61J39:53:20 [facility] 2022-09-10 15:59:00 [id number] 5r9GFbAIrOM1DHf7/gnk4LBGmOs2107-79-50S72:59:00 [facility] ([facility])Infectious Dis. Progress NoteREPORT#:[id number] REPORT STATUS: SignedDATE:09/10/22 TIME: 1559 PATIENT: KARMA ROWLAND UNIT #: [id number]#: [id number] [address] [birth year] AGE: 56 SEX: M ATTEND: Mj Vences [facility] AUTHOR: Merry Wolff MD * ALL edits or amendments must be made on the electronic/computer document * SubjectiveHPI:PT is a 56yr old male with history of diabetes mellitus type 2, hypertension whowas admitted with altered mental status and right-sided foot infection. According to him, he noticed a blister on his right foot around 3 days prior to presentation. His foot got progressively more swollen and erythema extended proximally to his lateral foot and ankle. CT abdomen and pelvis with contrast is concerning for possible prostate abscess. CT of lower extremity without contrast shows extensive soft tissue edema with mottled gas in the subcutaneous and intramuscular compartments of the foot, compatible with gas-forming infection. Patient's blood cultures have come back positive for MRSA in 2 out of 2 sets. PT has had persistent (+)Ve cx for MRSA 08/18- 08/22. He underwent a debridement of his foot on 08/19 and cx grew MRSA. PT was started on Vancomycin and clindamycin on 08/18. His MRI showed a prostate abscess. 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 Pt underwent a transrectal aspiration and unroofing of prostate abscess 08/26 and cx grew Citrobacter, Enterococcus, MRSA. He also hada BKA of right leg 08/28. JIMENA done 09/02. Pt was transferred to Rehab on 09/02. 09/08 doing well, no changes overnight, plan for EGD/colon today09/09 doing well, dressing changed from right BKA; rob intact, no drainage, no erythema no swelling 09/10doing well, doing well, NADPatient reports:No: cough, diarrhea, fever, headache, nausea, shortness of breath. Portions of this section were scribed by Jill Quintero on 09/10/22 at 1604 Objective GeneralVS/I O:Vital SignsDate Temp Pulse Resp B/P B/P Mean Pulse Ox HwA555/18-09/10 97.3-98.2 80-84 17-18 146-165/71-83 96.5-110.6 95-97 Last [...] O2 Flow FiO2 Mean Ox Delivery Rate 09/10 0710 98.2 80 18 147/71 96.5 96 Room air 09/09 2334 97.5 82 17 146/73 97.2 97 Room air 09/09 2116 84 95 Room air 09/09 1852 97.3 82 17 165/83 110.6 24 hour I O ending at 0700: 09/10 0700 09/09 1900 Intake Total 715 Output Total Balance 715 Intake, Oral 715 PATIENT WEIGHT: Weight (lb): 165Weight (oz): 5.55Weight (kg): 75.000 Antibiotic start date:Antibiotic: vancomycinStart Date:09/03 Antibiotic: daptomycin Start Date:08/28-09/03 Antibiotic: cefepime Start Date:09/01- Antibiotic: merremStart Date:08/27-09/01 Physical ExamGeneral appearance: alert, awake, orientedHead/Eyes: atraumatic, clear cornea, EOMI, normal conjunctiva/sclera, normal eyelids/periorb, normocephalic, PERRLENT: moist mucosal membranes, normal dentitionNeck: full range of motionCardiovascular: normal heart sounds, regular rate rhythmRespiratory: clear to auscultation, aerating wellAbdomen: non-tender, normal bowel sounds, softExtremities: moves all, right BKA Left foot wound +dressing in placeNeuro/DIRECTOR OPERATING ROOM: alert, oriented X 3 Considered stroke alert: noSkin: dry, intact ResultsFindings/Data:Laboratory Tests 09/10 09/10 09/10 09/09 09/09 1007 0545 0516 1911 1606 Chemistry Sodium (134 - 147 [...] 110 MG/DL) 213 H 154 H 102 109 Calcium (8.0 - 10.5 mg/dL) 8.3 Phosphorus [...] % (Auto) (14.0 - 32.0 %) 15.5 Lenoir % (Auto) (4.8 - 9.0 %) 8.5 Eos % (Auto) (0.3 - 3.7 %) 5.5 H Baso % (Auto) (0.0 - 2.0 %) 0.4 Neut # (Auto) (2.0 - 7.6 x10 3/uL) 5.94 Lymph # (Auto) (1.0 - 3.8 x10 3/uL) 1.33 Lenoir # (Auto) (0.1 - 0.8 x10 3/uL) 0.73 Eos # (Auto) (0.0 - 0.2 x10 3/uL) 0.47 H Baso # (Auto) (0.0 - 0.2 x10 3/uL) 0.03 Abs Immat Gran (auto) (0.00 - 0.03 x10 3/uL) 0.06 H Add Manual Diff NO Immature Gran % (0.0 - 2.0 %) 0.7 Nucleated RBC % (0 - 0 %) 0.0 Nucleated RBCs # (Man) (0.0 - 0.1 x10 3/uL) 0.00 Laboratory Tests 09/10 143 Toxicology Random Vancomycin (mcg/mL) 15.7 Laboratory Tests: 09/10 09/10 09/10 09/10 1430 [facility] 0545 0541 Chemistry Sodium (134 - 147 [...] % (Auto) (14.0 - 32.0 %) 15.5 Lenoir % (Auto) (4.8 - 9.0 %) 8.5 Eos % (Auto) (0.3 - 3.7 %) 5.5 H Baso % (Auto) (0.0 - 2.0 %) 0.4 Neut # (Auto) (2.0 - 7.6 x10 3/uL) 5.94 Lymph # (Auto) (1.0 - 3.8 x10 3/uL) 1.33 [place] # (Auto) (0.1 - 0.8 x10 3/uL) 0.73 Eos # (Auto) (0.0 - 0.2 x10 3/uL) 0.47 H Baso # (Auto) (0.0 - 0.2 x10 3/uL) 0.03 Abs Immat Gran (auto) (0.00 - 0.03 x10 3/uL) 0.06 H Add Manual Diff NO Immature Gran % (0.0 - 2.0 %) 0.7 Nucleated RBC % (0 - 0 %) 0.0 Nucleated RBCs # (Man) (0.0 - 0.1 x10 3/uL) 0.00 Toxicology Random Vancomycin (mcg/mL) 15.7 09/09 09/09 09/09 09/09 09/09 1911 1606 1526 1403 1049 Chemistry POC Glucose (70 - 110 MG/DL) 102 109 30 L 90 Toxicology Random Vancomycin (mcg/mL) 15.4 18 18 09/08 09/08 0524 0500 2040 1955 Chemistry [...] % (Auto) (14.0 - 32.0 %) 16.1 [place]oir % (Auto) (4.8 - 9.0 %) 9.2 H Eos % (Auto) (0.3 - 3.7 %) 4.7 H Baso % (Auto) (0.0 - 2.0 %) 0.4 Neut # (Auto) (2.0 - 7.6 x10 3/uL) 6.38 Lymph # (Auto) (1.0 - 3.8 x10 3/uL) 1.49 [place] # (Auto) (0.1 - 0.8 x10 3/uL) 0.85 H Eos # (Auto) (0.0 - 0.2 x10 3/uL) 0.43 H Baso # (Auto) (0.0 - 0.2 x10 3/uL) 0.04 Abs Immat Gran (auto) (0.00 - 0.03 x10 3/uL) 0.05 H Add Manual Diff NO Immature Gran % (0.0 - 2.0 %) 0.5 Nucleated RBC % (0 - 0 %) 0.0 Nucleated RBCs # (Man) (0.0 - 0.1 x10 3/uL) 0.00 Haptoglobin (29 - 370 mg/dL) 292 09/08 [...] (auto) (0.3 - 2.3 %) 1.3 Recent Impressions:ULTRASOUND - US RETROPERITONEAL COM 09/10 1311 Report Impression - Status: SIGNED Entered: 09/10/2022 1503 IMPRESSION: No acute findings. Impression By: Yared Mares M.D. Medication(s) Ordered:Anti-Infective Agents Sig/Jan Start time Last Medication Dose Route Stop Time Status Admin Vancomycin HCl 500 MG ONCE ONE 09/10 1600 AC Sodium Chloride 100 ML IV 09/10 1659 Cefepime HCl 1 GM Q8H 09/10 1500 AC 09/10 Sodium Chloride 10 ML IV 09/13 2359 1410 Vancomycin HCl 500 MG ONCE ONE 09/09 1530 DC 09/09 Sodium Chloride 100 ML IV 09/09 1629 [...] Sodium 5,000 UNIT Q8HR 09/02 2200 AC 09/10 SUBQ 10/02 2159 1409 Cardiovascular Drugs Sig/Jan [...] HCl 0.5 MG Q12H PRN PRN 09/10 0715 AC IV 09/21 1300 Oxycodone/ 2 TAB Q4H PRN PRN 09/10 0715 AC 09/10 Acetaminophen PO 10/10 1300 1359 Hydromorphone HCl 0.5 MG Q6H PRN PRN 09/08 1345 DC 09/09 IV 09/21 1300 2124 Amitriptyline HCl 25 MG BEDTIME 09/04 2100 AC 09/09 PO 10/04 205 2120 Hydrocodone Bitart/ 1 TAB Q4H PRN PRN 09/03 1400 DC 09/09 Acetaminophen PO 10/18 1300 2309 Acetaminophen 650 MG Q6H PRN PRN 09/01 1330 AC PO 10/01 1329 Electrolytic, Caloric, And Daniel Sig/Jan Start time Last Medication Dose Route Stop Time Status Admin Furosemide 20 MG BLOOD-DOSE BETWEEN 09/05 1245 CKD IV 10/05 1244 Sodium Chloride 10 ML ASDIR 09/05 1245 AC IV 10/05 1244 Furosemide 20 MG DAILY 09/05 09 AC 09/10 PO 10/05 0859 0840 Sodium Chloride 10 ML ASDIR PRN 09/05 0630 AC 09/10 IV 10/05 0629 0842 Sterile Water [...] Sodium 40 MG Q12HR 09/05 0900 AC 09/10 IV 10/05 0859 0841 Polyethylene Glycol 17 GM DAILY 09/05 0900 AC 09/07 PO 10/05 0859 0849 Sennosides 8.6 MG DAILY 09/05 0900 AC 09/10 PO 10/05 0859 0838 Bisacodyl [...] Glargine 5 UNIT BEDTIME 09/07 2100 AC 09/07 SUBQ 10/07 205 2233 Insulin Human Lispro 0 AC HS 09/03 1630 AC 09/10 SUBQ 10/03 1629 1134 Glucagon 1 MG ASDIR PRN 09/03 1515 AC IM 10/03 1514 Insulin Human Lispro 5 UNIT AC 09/03 0730 AC 09/10 SUBQ 10/03 0729 1134 Local Anesthetics (Parenteral) [...] AC 09/10 PO 10/09 0859 0838 Dose Instructions:(1)Sterile Water: DRESSING CHANGE Recent Imp[facility]10 1311 Report Impression - Status: SIGNED Entered: 09/10/2022 1503 IMPRESSION: No acute findings. Impression By: Yared Mares M.D. Portions of this section were scribed by Jill Quintero on 09/10/22 at 1604 Treatment Prophylaxis Treatment ProphylaxisLines: PICCCVC/PICC documentation:The data below has been imported from nursing documentation. Any exceptions have been noted below under Provider comments. CVC/PICC insertion date/time: PICC single lumen Arm upper Right Inserted 09/02/22 1720 Provider comments on imported nursing data: [] Portions of this section were scribed by Jill Quintero on 09/10/22 at 1604 Diagnosis, Assessment PlanFree Text A P:*MRSA bacteremia-Initial blood cultures from 08/18/2022 positive for MRSA in 2 out of 2 sets.-Repeat blood cultures 08/21/2022 are already positive for MRSA in 2 out of 2 sets, suggesting persistent high-grade bacteremia.-TTE 08/18/2022 negative for any obvious vegetations.-08/28 neg-JIMENA 09/02 neg*Prostatic abscess-s/p transrectal aspiration and unroofing on 08/26-cx MRSA, citrobacter (r-cefazolin) Enterococcus raffinosus (S-amp,pcn, vancomycin), bacteriodes*ERIKA*Hyponatremia*Diabetic neuropathy*Diabetes mellitus type 2*Hypertension*anemia 09/08-cont on Cefepime and vancomycin til 5/3 for treatment of Prostate abscess-follow esr and crp-EGD today 09/09-on cefepime and vancomycin til 5/3 for treatment of prostate abscess 09/10on cefepime and vancomycin til 5/3 for treatment of prostate abscesscheck esr and crp in amConsultants: cardiology, endocrinology, hospitalist, infectious disease, podiatry Portions of this section were scribed by Jill Quintero on 09/10/22 at 1604 at 1735 RPT #:[id number] OF REPORTPRProgress [id number]:59:00G.[id number] able for patient ilunXXAAVIRNHPPWST0739-16-83R06:41:57 [facility] 2022-09-10 15:50:00 [id number] LHjTZ9rYhu3Ak1FK+YX5z5UZpax+b mkFCplbVhX91kWR0tz6GvIOmZst0006-64-95U74:50:00 [facility])Pharmacy Prog.Note-VancomycinREPORT#:[id number] REPORT STATUS: SignedDATE:09/10/22 TIME: 1550 PATIENT: KARMA ROWLAND UNIT #: [id number]#: [id number] ROOM[facility]BED: [facility] [place]DOB: [birth year] AGE: 56 SEX: M ATTEND: Mj Vences [facility] AUTHOR: Joselyn Stock [facility] * ALL edits or amendments must be made on the electronic/computer document * Vancomycin Vancomycin Medication TherapyGoal: Random 15-20 mcg/mLIndication for treatment:OM and MRSA BacteremiaVS and I/O:Vital SignsDate Temp Pulse Resp B/P B/P Mean Pulse Ox QrV178/-09/10 97.3-98.8 79-98 10-20 131-177/64-90 87.1-118.8 94-99 72 hours ending at 0700 09/10 0700 09/09 1900 09/09 0700 09/08 1900 09/08 09/07 0700 1900Intake 715 250.00 2000TotalOutput 850 600TotalBalance 715 -850 250.00 1400 Intake, IV 250.00Intake, 715 2000OralNumber 1 2BowelMovementsNumber 0 0IncontinentVoidsNumber 0 0VoidsOutput, 850 600Urine 72 Hour I O Total 09/10 0700 09/09 0700 09/08 0700 Intake Total 715 250.00 2000 Output Total 850 600 Balance 715 -600.00 1400 Labs:Laboratory Tests: 09/10 09/09 09/08 1430 1403 1045 Toxicology Random Vancomycin (mcg/mL) 15.7 15.4 15.8 Laboratory Test : 09/10 09/09 09/08 0545 0500 0615 Chemistry BUN (7 - 18 mg/dL) 25 H 23 H 22 H Creatinine (0.6 - 1.3 mg/dL) 1.9 H 1.5 H 1.4 H Hematology WBC (4.5 - 11.0 x10 3/uL) 8.6 9.2 9.1 Treatment plan: consultRegimen:56yo male with PMH of T2DM and HTN who was admitted with AMS and right-sided foot infection. According to him, he noticed a blister on his right foot around3 days prior to presentation on 08/18. His foot got progressively more swollen and erythema extended proximally to his lateral foot and ankle. Patient's BCx had persistent BCx for MRSA 08/18- 08/22. He underwent a debridement of his foot on 08/19 and Cx grew MRSA. Pt was started on Vancomycin and clindamycin on 08/18.Patient is s/p ICU stay with merrem/daptomycin. ID adjusted regimen to cefepime/vancomycin. Pharmacy consulted to dose vancomycin. Consulting provider: Doris Wolffication: Osteomyelitis of the Talus, Calcaneus, and Navicular Bone; MRSA Bacteremia; Prostatic AbscessGoal Random: 15-20 mcg/mLConcomitant Abx: CefepimeDuration of Therapy: 09/24/22 Assessment:Labs/Vitals* Afebrile/24hrs, WBC 8.6, BUN/SCr 25/1.9, UOP/24hrs not documentedMicro* MRSA nares (09/03) positive* WCx (08/26) Citrobacter Farmeri (R Ampicillin, Cefazolin), Enterococcus Raffinosus (R Tetracycline), MRSAImaging* CT Abd/Pelvis (08/18) possible abscess* RLE MRI (08/21) osteomyelitis of the talus, calcaneus, navicular boneLevel* Peak (09/03) 27.7 mcg/mL; Trough (09/04) 12.8 mcg/mL; Calculated AUC 462 mcg*hr/mL, therefore tehrapeutic on Vancomycin 1gm IV q24h* Trough (09/06)* Random (09/07 @0510) 14.7 mcg/mL; s/p Vanc 1gm IV x1 09/05 @2009; Calculated half-life = 35.8hrs* Random (09/08 @1045) 15.8 mcg/mL; s/p Vanc 750mg IV x1 09/07 @1102* Given patient's renal function has been elevated, yet stable, Vancomycin 500mgIV q24h was initiated* Random (09/09 @1403) 15.4 mcg/mL; s/p Vanc 500mg IV x1 09/08 @1403* Random (09/09 @1430) 15.7 mcg/mL; s/p Vanc 500mg IV x1 09/09 @1553 Plan:* Patient's renal function worsened today, therefore will continue to dose by random level; will give Vancomycin 500mg IV x1* Draw random level 09/11 @1500 at 1553 RPT #:[id number] OF REPORTPRProgress [id number]:50:00G.[id number] able for patient bbpxIYQVUMMPNKDSYQ1712-48-54Q80:54:10 [facility] 2022-09-10 14:42:00 [id number] Lcp1WaWKXyJyAKdYoWBYCk3GC6TyY 2KCTX66K+S/+Hnj82ccI7iO2UAR4839-75-50S71:42:00 [facility])Gastroenterology Progress NoteREPORT#:[id number] REPORT STATUS: SignedDATE:09/10/22 TIME: 1442 PATIENT: KARMA ROWLAND UNIT #: [id number]#: [id number] [address] [birth year] AGE: 56 SEX: M ATTEND: Mj Vences [facility] AUTHOR: Kassie Avitia MD * ALL edits or amendments must be made on the electronic/computer document * SubjectiveHPI:Patient is a 56-year-old male with history of diabetes mellitus type 2 and hypertension who was initially admitted for altered mental status and right-sided foot infection. 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 The patient is anemic with current Hgb 7.1. He has received a total of 3 units pRBCs during this hospitalization. KUB on 09/04 was negative for acute GI process. The patient denies overt GIB, dark tarry stools, nausea, abdominal pain, or vomiting. He has never had EGD orcolonoscopy. 09/06: No complaints today. Hemoglobin stable. No overt GI bleed. Plan for colonoscopy and endoscopy on Thursday 09/07: No complaints today. No overt GI bleed. Planning for colonoscopy and endoscopy tomorrow 09/08: EGD mild gastritis. colonoscopy rectal polyp s/p snare. No other abnormalities 09/09: doing well. Seen at the gym. No bleeding. 09/10: Doing well. No bleeding. tolerating diet. Movig bowels Objective Physical ExamHEENT: atraumatic, normocephalicNeck: full range of motion, non-tenderRespiratory: symmetric expansion, no distressAbdomen: non-tender, normal bowel sounds, soft, no distention, no guardingExtremities: right BKA Considered stroke alert: noSkin: dry Diagnosis, Assessment PlanFree Text A P:1. Positive FOBT-and anemia: The patient denies overt GIB, dark tarry stools, nausea, abdominal pain, or vomiting. He is not on anticoagulation therapy.-Continue PPI. The patient has never had EGD or colonoscopy prior to this admissions/p EGD and colonoscopy. EGD showed mild gastritis. Colonoscopy showed rectal polyp that was resected by snare. no evidence of bleeding. Pathology of polyp came back as tubular adenoma. recommend repeating colonoscopy in 5 years Anemia likely secondary to chronic kidney disease.Can consider video capsule endoscopy as outpt Will follow Consultants: cardiology, endocrinology, hospitalist, infectious disease, podiatry at 1444 RPT #:[id number] OF REPORTPRProgress [id number]:42:00G.[id number] able for patient jvziLWSVWEHJRSTNEB2687-44-54K74:44:47 [facility] 2022-09-10 10:50:00 [id number] [id number] hceSt9knATAZRdMyIlQepLgRw5n7279-74-13T97:50:00 [facility] HospitalHospital[facility] Progress NoteREPORT#:[id number] REPORT STATUS: SignedDATE:09/10/22 TIME: 1050 PATIENT: KARMA ROWLAND UNIT #: [id number]#: [id number] [address] [birth year] AGE: 56 SEX: M ATTEND: Mj Vences [facility] AUTHOR: Wilbert Ramires MD * ALL edits or amendments must be made on the electronic/computer document * SubjectiveChief complaint:admitted to rehab. participating with therapy Review of SystemsAll systems rev neg: except as noted Objective GeneralVS/I O:Vital Signs: Date Time Temp Pulse Resp B/P B/P Pulse O2 O2 Flow FiO2 Mean Ox Delivery Rate 09/10 0710 [...] Intake, Oral 715 PATIENT WEIGHT: Weight (lb): 165Weight (oz): 5.55Weight (kg): 75.000 Medications:Active Meds + DC'd Last 24 HrsCefepime HCl (MAXIPIME) 1 GM Q8H IV Sodium Chloride (SODIUM CHLORIDE) 10 MLGabapentin (NEURONTIN) 100 MG Q8HR PO Hydromorphone HCl (DILAUDID) 0.5 MG Q12H PRN PRN IV Oxycodone/Acetaminophen (PERCOCET 5/325MG TAB) 2 TAB Q4H PRN PRN PO Vancomycin HCl (VANCOMYCIN HCL) 500 MG ONCE ONE IV (DC) Sodium Chloride (SODIUM CHLORIDE 0.9% 100 ML) 100 MLFerric Sodium Gluconate Complex (FERRLECIT) 125 MG DAILY IV Sodium Chloride (SODIUM CHLORIDE 0.9%) 100 MLFolic Acid (FOLIC ACID) 2 MG DAILY PO Multivitamins (TAB-A-MOHAN) 1 TAB DAILY PO Carvedilol (COREG) 12.5 MG C BK DIN PO Hydromorphone HCl (DILAUDID) 0.5 MG Q6H PRN PRN IV (DC) Vancomycin HCl (VANCOMYCIN HCL) 500 MG Q24H IV (DC) Sodium Chloride (SODIUM CHLORIDE 0.9% 100 ML) 100 MLInsulin Glargine (Lantus/Semglee) 5 UNIT BEDTIME SUBQ Furosemide (LASIX 20MG INJ) 20 MG BLOOD-DOSE BETWEEN IV (CKD) Sodium Chloride (SODIUM CHLORIDE) 10 ML ASDIR IV Furosemide (LASIX) 20 MG DAILY PO Pantoprazole Sodium (PROTONIX) 40 MG Q12HR IV Polyethylene Glycol (MIRALAX) 17 GM DAILY PO Sennosides (Senna Lax 8.6 MG TABLET) 8.6 MG DAILY PO Sodium Chloride (SODIUM CHLORIDE) 10 ML ASDIR PRN IV Amitriptyline HCl (ELAVIL) 25 MG BEDTIME PO Zinc Oxide (ZINC OXIDE 30 GM OINTMENT) 1 APPLIC DAILY TOPICAL Sterile Water (WATER FOR IRRIGATION) DRESSING CHANGE ASDIR PRN IRR Insulin Human Lispro (HUMALOG) 0 AC HS SUBQ Dextrose/Water (DEXTROSE 10% IN WATER) 125 ML ASDIR PRN IV (CKD) Dextrose/Water (DEXTROSE 10% IN WATER) 250 ML ASDIR PRN IV (CKD) Glucagon (GLUCAGON) 1 MG ASDIR PRN IM Hydrocodone Bitart/Acetaminophen (NORCO 10/325) 1 TAB Q4H PRN PRN PO (DC) Lidocaine (LIDODERM) 1 PATCH DAILY TOPICAL Insulin Human Lispro (HUMALOG) 5 UNIT AC SUBQ Miscellaneous Information (VANCOMYCIN PHARMACY TO DOSE) 1 EACH ASDIR IV (CKD) Heparin Sodium (HEPARIN 5000 UNITS/ML) 5,000 UNIT Q8HR SUBQ Cefepime HCl (MAXIPIME) 1 GM Q6H IV (DC) Sodium Chloride (SODIUM CHLORIDE) 10 MLAcetaminophen (TYLENOL) 650 MG Q6H PRN PRN PO Bisacodyl (DULCOLAX) 10 MG DAILY PRN PRN RECTAL Docusate Sodium (COLACE) 100 MG Q12H PRN PRN PO Hydralazine HCl (APRESOLINE) 10 MG Q6H PRN PRN IV Ondansetron HCl (ZOFRAN) 4 MG Q6H PRN PRN IV Physical ExamGeneral appearance: alert, awake, orientedHead/Eyes: atraumatic, clear corneaNeck: full range of motion, non-tenderCardiovascular: normal capillary refill, normal heart sounds, regular rate rhythmRespiratory: aerating well, clear to auscultationAbdomen: non-tender, normal bowel soundsGenitourinary: no flank painExtremities: moves all, normal capillary refillMusculoskeletal: normal inspection, painless range of motionNeuro/DIRECTOR OPERATING ROOM: alert, oriented X 3, 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 Considered stroke alert: noSkin: dry, intactPsychiatry: normal affect, normal judgment/insight ResultsFindings/Data:Laboratory Tests 09/10 09/10 09/10 09/09 09/09 1007 [...] 110 MG/DL) 213 H 154 H 102 109 Calcium (8.0 - 10.5 mg/dL) 8.3 Phosphorus [...] % (Auto) (14.0 - 32.0 %) 15.5 Len[place] % (Auto) (4.8 - 9.0 %) 8.5 Eos % (Auto) (0.3 - 3.7 %) 5.5 H Baso % (Auto) (0.0 - 2.0 %) 0.4 Neut # (Auto) (2.0 - 7.6 x10 3/uL) 5.94 Lymph # (Auto) (1.0 - 3.8 x10 3/uL) 1.33 Lenoir # (Auto) (0.1 - 0.8 x10 3/uL) 0.73 Eos # (Auto) (0.0 - 0.2 x10 3/uL) 0.47 H Baso # (Auto) (0.0 - 0.2 x10 3/uL) 0.03 Abs Immat Gran (auto) (0.00 - 0.03 x10 3/uL) 0.06 H Add Manual Diff NO Immature Gran % (0.0 - 2.0 %) 0.7 Nucleated RBC % (0 - 0 %) 0.0 Nucleated RBCs # (Man) (0.0 - 0.1 x10 3/uL) 0.00 Laboratory Tests 09/09 1403 Toxicology Random Vancomycin (mcg/mL) 15.4 Diagnosis, Assessment PlanConsultants: cardiology, endocrinology, hospitalist, infectious disease, podiatry Free Text DxA P NotesFree text DxA P notes:Gangrene of right foot s/p Below- knee amputation Prostate abscessMRSA bacteremiaHx of Diabetes, Diabetic neuropathyHTN PLANS: Continue with ABx as dierected- currently on Daptomycin and CefepimeContinue with PT/OT per primary Fall precautionsNutritional supportpain controlfall precautionsbowel regimenWound care as directedHepain PPXContinue with supportive / care follow hgb closely and transfuse as neededblood sugars dipping down - endo followinglabs noted. watch HgbIV ironBP remains not at target. increase Coreg at 1130 RPT #:[id number] OF REPORTPRProgress [id number]:50:00G.[id number] able for patient eyuxPMLHMCATWMNRUC8994-92-34O03:30:38 [facility] 2022-09-10 10:36:00 [id number] I/2BK8t2vQKtW8xggRTqbVjFIlxqy skbrPYlCm93Da3fnEZOc10C1i+K0745-71-38D10:36:00 [facility] ([facility])Cardiology Progress NoteREPORT#:[id number] REPORT STATUS: SignedDATE:09/10/22 TIME: 1036 PATIENT: KARMA ROWLAND UNIT #: [id number]#: [id number] [address] [birth year] AGE: 56 SEX: M ATTEND: Mj Vences [facility] AUTHOR: Rohit Benitez [employer]ING [employer]PERATOR * ALL edits or amendments must be made on the electronic/computer document * Rohit Benitez 09/10/22 1036:SubjectiveChief complaint:weakness Free Text Subj NotesFree Text Subj Notes:Patient seen and evaluated in the gym. Overall doing well without shortness of breath or chest pain. Continued to have lower extremity edema. Objective GeneralVS/I O:24 hour I O ending at 0700: 09/10 0700 09/09 1900 Intake Total 715 Output Total Balance 715 Intake, Oral 715 Vital Signs: Date Time Temp Pulse Resp B/P B/P Pulse O2 O2 Flow FiO2 Mean Ox Delivery Rate 09/10 0710 98.2 80 18 147/71 96.5 96 Room air 09/09 2334 97.5 82 17 146/73 97.2 97 Room air 09/09 2116 84 95 Room air 09/09 1852 97.3 82 17 165/83 110.6 09/09 1529 97.7 79 18 168/80 109.3 98 Room air PATIENT WEIGHT: Weight (lb): 165Weight (oz): 5.55Weight (kg): 75.000 Medications:Active Meds + DC'd Last 24 HrsCefepime HCl (MAXIPIME) 1 GM Q8H IV Sodium Chloride (SODIUM CHLORIDE) 10 MLGabapentin (NEURONTIN) 100 MG Q8HR PO Hydromorphone HCl (DILAUDID) 0.5 MG Q12H PRN PRN IV Oxycodone/Acetaminophen (PERCOCET 5/325MG TAB) 2 TAB Q4H PRN PRN PO Vancomycin HCl (VANCOMYCIN HCL) 500 MG ONCE ONE IV (DC) Sodium Chloride (SODIUM CHLORIDE 0.9% 100 ML) 100 MLFerric Sodium Gluconate Complex (FERRLECIT) 125 MG DAILY IV Sodium Chloride (SODIUM CHLORIDE 0.9%) 100 MLFolic Acid (FOLIC ACID) 2 MG DAILY PO Multivitamins (TAB-A-MOHAN) 1 TAB DAILY PO Carvedilol (COREG) 12.5 MG C BK DIN PO Hydromorphone HCl (DILAUDID) 0.5 MG Q6H PRN PRN IV (DC) Vancomycin HCl (VANCOMYCIN HCL) 500 MG Q24H IV (DC) Sodium Chloride (SODIUM CHLORIDE 0.9% 100 ML) 100 MLInsulin Glargine (Lantus/Semglee) 5 UNIT BEDTIME SUBQ Furosemide (LASIX 20MG INJ) 20 MG BLOOD-DOSE BETWEEN IV (CKD) Sodium Chloride (SODIUM CHLORIDE) 10 ML ASDIR IV Furosemide (LASIX) 20 MG DAILY PO Pantoprazole Sodium (PROTONIX) 40 MG Q12HR IV Polyethylene Glycol (MIRALAX) 17 GM DAILY PO Sennosides (Senna Lax 8.6 MG TABLET) 8.6 MG DAILY PO Sodium Chloride (SODIUM CHLORIDE) 10 ML ASDIR PRN IV Amitriptyline HCl (ELAVIL) 25 MG BEDTIME PO Zinc Oxide (ZINC OXIDE 30 GM OINTMENT) 1 APPLIC DAILY TOPICAL Sterile Water (WATER FOR IRRIGATION) DRESSING CHANGE ASDIR PRN IRR Insulin Human Lispro (HUMALOG) 0 AC HS SUBQ Dextrose/Water (DEXTROSE 10% IN WATER) 125 ML ASDIR PRN IV (CKD) Dextrose/Water (DEXTROSE 10% IN WATER) 250 ML ASDIR PRN IV (CKD) Glucagon (GLUCAGON) 1 MG ASDIR PRN IM Hydrocodone Bitart/Acetaminophen (NORCO 10/325) 1 TAB Q4H PRN PRN PO (DC) Lidocaine (LIDODERM) 1 PATCH DAILY TOPICAL Insulin Human Lispro (HUMALOG) 5 UNIT AC SUBQ Miscellaneous Information (VANCOMYCIN PHARMACY TO DOSE) 1 EACH ASDIR IV (CKD) Heparin Sodium (HEPARIN 5000 UNITS/ML) 5,000 UNIT Q8HR SUBQ Cefepime HCl (MAXIPIME) 1 GM Q6H IV (DC) Sodium Chloride (SODIUM CHLORIDE) 10 MLAcetaminophen (TYLENOL) 650 MG Q6H PRN PRN PO Bisacodyl (DULCOLAX) 10 MG DAILY PRN PRN RECTAL Docusate Sodium (COLACE) 100 MG Q12H PRN PRN PO Hydralazine HCl (APRESOLINE) 10 MG Q6H PRN PRN IV Ondansetron HCl (ZOFRAN) 4 MG Q6H PRN PRN IV Physical ExamGeneral appearance: alert, awake, orientedNeck: no bruit/NL carotids, no JVDCardiovascular: CV assessment: regular rate and rhythm, no ectopy, no gallopRespiratory: clear to auscultation, no distressAbdomen: soft, non-tenderLower extremity: LE assessment: edema, normal temperatureNeuro/DIRECTOR OPERATING ROOM: alert, oriented X 3 Considered stroke alert: noWound/incision: Location:right bkaPsychiatry: normal affect, normal judgment/insight, normal mood ResultsFindings/Data:Laboratory Tests 09/10 09/10 09/10 09/09 09/09 1007 [...] 110 MG/DL) 213 H 154 H 102 109 Calcium (8.0 - 10.5 mg/dL) 8.3 Phosphorus [...] % (Auto) (14.0 - 32.0 %) 15.5 Lenoir % (Auto) (4.8 - 9.0 %) 8.5 Eos % (Auto) (0.3 - 3.7 %) 5.5 H Baso % (Auto) (0.0 - 2.0 %) 0.4 Neut # (Auto) (2.0 - 7.6 x10 3/uL) 5.94 Lymph # (Auto) (1.0 - 3.8 x10 3/uL) 1.33 [place] # (Auto) (0.1 - 0.8 x10 3/uL) 0.73 Eos # (Auto) (0.0 - 0.2 x10 3/uL) 0.47 H Baso # (Auto) (0.0 - 0.2 x10 3/uL) 0.03 Abs Immat Gran (auto) (0.00 - 0.03 x10 3/uL) 0.06 H Add Manual Diff NO Immature Gran % (0.0 - 2.0 %) 0.7 Nucleated RBC % (0 - 0 %) 0.0 Nucleated RBCs # (Man) (0.0 - 0.1 x10 3/uL) 0.00 Laboratory Tests 09/09 1403 Toxicology Random Vancomycin (mcg/mL) 15.4 Laboratory Tests 09/10 0545 Chemistry Magnesium (1.80 - 2.40 mg/dL) 1.89 Diagnosis, Assessment PlanConsultants: cardiology, endocrinology, hospitalist, infectious disease, podiatry Free Text DxA P NotesFree Text DxA P Notes:Impression: 1. Debility2. Infected right foot status post BKA3. Bacteremia4. Diabetes5. Hypertension 6. Anemia 07/2022: Echocardiogram with normal LVEF, grade 1 diastolic dysfunction, mildly dilated LA, and no significant valvular abnormalities Recommendation: Patient initially presented with DKA and sepsis. Diagnosed with right foot infection, underwent I D, now status post BKA. Patient had persistent bacteremia with MRSA, underwent JIMENA with negative findings of endocarditis. Patient now transferred to rehab for physical therapy. Known cardiac history ofhypertension and hyperlipidemia. Vital signs stable. Echocardiogram with normal LVEF, grade 1 diastolic dysfunction, mildly dilated LA, and no significant valvular abnormalities. Continue to monitor blood pressure trend. Continue wound care and IV antibiotic therapy. Continue PT/OT. Supportive care. 09/04: Patient complaining of shortness of breath, abdominal distention and lowerextremity edema. Renal function and electrolytes stable. Will give one-time dose of IV Lasix 40 mg. Blood pressure stable. Pending abdominal x-ray. Monitor intake and output. Check BMP in the morning. Supportive care. Plan ofcare discussed with patient, RN and Dr. Parham. 09/05: Patient responded well to IV Lasix, good urine output and improvement in shortness of breath. Chest x-ray ordered. Currently on Lasix 20 mg p.o. daily. Continue monitor renal function and electrolytes. Pending lower extremity Doppler for lower extremity edema. Continue PT/OT. Supportive care. Plan of care discussed with patient, RN and Dr. Parham. 09/08: Blood pressure has been elevated, started on Coreg 3.125 mg twice daily. Continue monitor blood pressure trend and adjust medication as needed. Still having left lower extremity edema, venous Doppler negative for DVT. continue gentle diuresis with Lasix 20 mg p.o. daily. Recommend Joan wrap. Patient remains anemic, plan for EGD/colonoscopy today. Supportive care. Plan of care discussed with patient, family, RN and Dr. Parham. 09/09: Patient doing well status post EGD/colonoscopy, negative findings for GI bleed. Blood pressure improving, increased on Coreg to 12.5 mg twice daily. Elevated creatinine noted, nephrology following. No new cardiac complaint. Continue wound care. Continue PT/OT. Supportive care. Plan of care discussed with patient, RN and Dr. Parham. 09/10: Blood pressure remained stable on current regimen of Coreg. Patient continue to have left lower extremity edema. Currently on Lasix 20 mg daily. Creatinine 1.9 today, continue to monitor. Patient's albumin level was 1.3, it is possible that patient's lower extremity edema could be related to hypoalbuminemia leading to third spacing. Continue PT/OT. Supportive care. Plan of care discussed with patient, RN and Dr. Parham. Napoleon Parham 09/11/22 0807:Diagnosis, Assessment PlanAdditional comments:Patient was seen and examined at bedside, agree with above assessment and plan as documented by nurse practitioner. Will follow. at 1810 at 0823 RPT #:[id number] OF REPORTPRProgress [id number]:36:00G.[id number] able for patient vmcdWKIOGSNXDOTVSS2716-11-58S25:10:46 [facility] 2022-09-10 07:33:00 [id number] U7976JckyfGphi87t+mi67aqZ8Eww T1ea824/WB9BzrZASFRxE/tzFjp8727-05-63K63:33:00 [facility] HospitalNe[facility] Progress NoteREPORT#:[id number] REPORT STATUS: SignedDATE:09/10/22 TIME: 732 PATIENT: KARMA ROWLAND UNIT #: [id number]#: [id number] [address] [birth year] AGE: 56 SEX: M ATTEND: Mj Vences [facility] AUTHOR: Barrera Ramírez MD * ALL edits or amendments must be made on the electronic/computer document * SubjectiveChief complaint:Infected footHPI:Patient seen and evaluated on 09/09/2022, note started, records reviewed and orders placed on 09/08/2022, 56-year-old male with history of diabetes mellitus type 2, hypertension and peripheral vascular disease who was initially admitted to acute care with altered mental status and right foot infection/gangrene, 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 Patient had persistent anemia requiring blood transfusion. His fecal occult blood was positive and his creatinine was 1.2 and increased to 1.4 today, laboratories today showed hemoglobin 8.5, platelet 231, blood count 9.1, sodium 135, potassium 4.6, CO2 22, BUN 22, creatinine 1.4. Renal consult was requested for evaluation management of elevated BUN and creatinine and if his decreased GFR iscontributing to his anemia. Patient reports:Yes: complaints. Comments:Patient seen and evaluated, HPI no change from initial, feels okay. Review of SystemsConstitutional:Reports: fatigue. Denies: chills, fever. Skin:Denies: rash. Allergy/Immun:Denies: hives, itching. Eyes:Denies: redness, discharge. ENT:Denies: ear drainage, ear ringing. Respiratory:Denies: hemoptysis, SOB. Cardiovascular:Denies: chest pain. Objective GeneralVS/I O:Vital Signs: Date Time Temp Pulse Resp B/P B/P Pulse O2 O2 Flow FiO2 Mean Ox Delivery Rate 09/10 0710 [...] Intake, Oral 715 PATIENT WEIGHT: Weight (lb): 165Weight (oz): 5.55Weight (kg): 75.000 MedicationsActive Meds + DC'd Last 24 HrsGabapentin (NEURONTIN) 100 MG Q8HR PO Hydromorphone HCl (DILAUDID) 0.5 MG Q12H PRN PRN IV Oxycodone/Acetaminophen (PERCOCET 5/325MG TAB) 2 TAB Q4H PRN PRN PO Vancomycin HCl (VANCOMYCIN HCL) 500 MG ONCE ONE IV (DC) Sodium Chloride (SODIUM CHLORIDE 0.9% 100 ML) 100 MLFerric Sodium Gluconate Complex (FERRLECIT) 125 MG DAILY IV Sodium Chloride (SODIUM CHLORIDE 0.9%) 100 MLFolic Acid (FOLIC ACID) 2 MG DAILY PO Multivitamins (TAB-A-MOHAN) 1 TAB DAILY PO Carvedilol (COREG) 12.5 MG C BK DIN PO Hydromorphone HCl (DILAUDID) 0.5 MG Q6H PRN PRN IV (DC) Vancomycin HCl (VANCOMYCIN HCL) 500 MG Q24H IV (DC) Sodium Chloride (SODIUM CHLORIDE 0.9% 100 ML) 100 MLInsulin Glargine (Lantus/Semglee) 5 UNIT BEDTIME SUBQ Furosemide (LASIX 20MG INJ) 20 MG BLOOD-DOSE BETWEEN IV (CKD) Sodium Chloride (SODIUM CHLORIDE) 10 ML ASDIR IV Furosemide (LASIX) 20 MG DAILY PO Pantoprazole Sodium (PROTONIX) 40 MG Q12HR IV Polyethylene Glycol (MIRALAX) 17 GM DAILY PO Sennosides (Senna Lax 8.6 MG TABLET) 8.6 MG DAILY PO Sodium Chloride (SODIUM CHLORIDE) 10 ML ASDIR PRN IV Amitriptyline HCl (ELAVIL) 25 MG BEDTIME PO Mupirocin (BACTROBAN 2% 22 GM OINTMENT) 1 APPLIC BID NASAL (DC) Zinc Oxide (ZINC OXIDE 30 GM OINTMENT) 1 APPLIC DAILY TOPICAL Sterile Water (WATER FOR IRRIGATION) DRESSING CHANGE ASDIR PRN IRR Insulin Human Lispro (HUMALOG) 0 AC HS SUBQ Dextrose/Water (DEXTROSE 10% IN WATER) 125 ML ASDIR PRN IV (CKD) Dextrose/Water (DEXTROSE 10% IN WATER) 250 ML ASDIR PRN IV (CKD) Glucagon (GLUCAGON) 1 MG ASDIR PRN IM Hydrocodone Bitart/Acetaminophen (NORCO 10/325) 1 TAB Q4H PRN PRN PO (DC) Lidocaine (LIDODERM) 1 PATCH DAILY TOPICAL Insulin Human Lispro (HUMALOG) 5 UNIT AC SUBQ Miscellaneous Information (VANCOMYCIN PHARMACY TO DOSE) 1 EACH ASDIR IV (CKD) Heparin Sodium (HEPARIN 5000 UNITS/ML) 5,000 UNIT Q8HR SUBQ Cefepime HCl (MAXIPIME) 1 GM Q6H IV Sodium Chloride (SODIUM CHLORIDE) 10 MLAcetaminophen (TYLENOL) 650 MG Q6H PRN PRN PO Bisacodyl (DULCOLAX) 10 MG DAILY PRN PRN RECTAL Docusate Sodium (COLACE) 100 MG Q12H PRN PRN PO Hydralazine HCl (APRESOLINE) 10 MG Q6H PRN PRN IV Ondansetron HCl (ZOFRAN) 4 MG Q6H PRN PRN IV Physical ExamGeneral appearance: alert, no acute distressHead/eyes: atraumatic, normocephalicENT: normal noseNeck: non-tender, supple/no meningismusCardiovascular: normal heart sounds, no rubRespiratory: aerating well, symmetric expansionAbdomen: non-tender, softGenitourinary: no flank painExtremities: pitting edema, non-tenderMusculoskeletal: no CVA tenderness, no tendernessNeuro/DIRECTOR OPERATING ROOM: alert, 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 Considered stroke alert: noSkin: dry, intact ResultsFindings/Data:Laboratory Tests 09/10 09/09 09/09 09/09 09/09 0541 [...] 09/08 09/08 09/08 1611 1318 1033 0616 0615Chemistry Sodium (134 - 147 mEq/L) 135 Potassium [...] Total Creatine Kinase (46 - 171 22 LUnits/L) Albumin (3.4 - 5.0 g/dL) 1.30 L [...] (14.0 - 32.0 %) 16.1 13.7 L [place] % (Auto) (4.8 - 9.0 %) 9.2 H 7.2 Eos % (Auto) (0.3 - 3.7 %) 4.7 H 4.8 H Baso % (Auto) (0.0 - 2.0 %) 0.4 0.3 Neut # (Auto) (2.0 - 7.6 x10 3/uL) 6.38 6.64 Lymph # (Auto) (1.0 - 3.8 x10 3/uL) 1.49 1.24 [place] # (Auto) (0.1 - 0.8 x10 3/uL) 0.85 H 0.65 Eos # (Auto) (0.0 - 0.2 x10 3/uL) 0.43 H 0.43 H Baso # (Auto) (0.0 - 0.2 x10 3/uL) 0.04 0.03 Abs Immat Gran (auto) (0.00 - 0.03 x10 3/uL) 0.05 H 0.06 H Add Manual Diff NO NO Immature Gran % (0.0 - 2.0 %) 0.5 0.7 Nucleated RBC % (0 - 0 %) 0.0 0.0 Nucleated RBCs # (Man) (0.0 - 0.1 x10 3/uL) 0.00 0.00 Retic Count (auto) (0.3 - 2.3 %) 1.3 Laboratory Tests 09/09 09/08 1403 1045 Toxicology Random Vancomycin (mcg/mL) 15.4 15.8 Laboratory Tests 09/10 09/09 09/09 09/09 09/09 0541 1911 1606 1526 1049 Chemistry POC Glucose (70 - 110 MG/DL) 154 H 102 109 30 L 90 Laboratory Tests 09/09 1403 Toxicology Random Vancomycin (mcg/mL) 15.4 Diagnosis, Assessment PlanFree Text A P:Patient seen and evaluated, discussed with care team, images and laboratories reviewed.Diabetes mellitus: Insulin: Monitor blood sugar closely and adjust medications as needed, followed by endocrinology.Hypertension: Blood pressure is not well controlled, increase Coreg to 12.5 mg p.o. twice daily: Monitor blood pressure closely and adjust medications as neededRight foot gangrene/infection status post right BKAAnemia: Status post EGD and colonoscopy which were negative for active GI bleeding, patient had work-up in July 2022 which showed very high B12, normal folate, very low iron saturation but very high ferritin which was likely relatedto his infection, likely patient is very iron deficient, will repeat lab and give IV iron if needed. We will check serum immunofixation.Acute kidney injury: We will check renal bladder ultrasound, check postvoid residual, check urine protein creatinine ratioHypomagnesemia: We will supplement09/09/2022 laboratory this morning showed sodium 135, potassium 4.2, CO2 21, BUN 25, creatinine 1.9 continues to worsen, etiology unclear, however his development some eosinophilia not sure if he is developing AIN, suggest changingcefepime to a different class of antibiotic if possible, will check renal bladder ultrasoundConsultants: cardiology, endocrinology, hospitalist, infectious disease, podiatry at 0933 RPT #:[id number] OF REPORTPRProgress [id number]:00G.[id number] able for patient [id number]:34:20 [facility] 2022-09-10 06:03:00 [id number] [id number]:03:00 [facility] ([facility])Rehab Progress NoteREPORT#:[id number] REPORT STATUS: SignedDATE:09/10/22 TIME: 06 PATIENT: KARMA ROWLAND UNIT #: [id number]#: [id number] [address] [birth year] AGE: 56 SEX: M ATTEND: Mj Vences [facility] AUTHOR: Guero Candelaria * ALL edits or amendments must be made on the electronic/computer document * SubjectiveChief complaint:Rehab follow-upDoing better+ BMEating 75-100%Denies DICKENS/N/V/D/CP14 systems reviewed and neg. except that above.History of present illness:56 yo HAM with long h/o DM, and HTN who was admitted for fever, flulike symptomsand altered mental status on 08/18. He was doing well until about 3 days prior toadmission when he noted blister to have formed on the dorsum of his foot. His foot started progressively getting more swollen and the blisters started enlarging and extending to his lateral foot and ankle. He started feeling weak and nauseated. He was noted to have altered mentation and was brought to our ER.He was noted to be in DKA with Blood sugars greater than 600. He was seen by podiatry and surgery for BLE wounds and infection. He was treated in ICU for sepsis and DKA. He underwent incisional and excisional debridement of right footand right ankle by podiatry. Patient also found to have prostate abscess underwent transrectal ultrasound aspiration of abscess and transurethral resection of prostate and unroofing of abscess by urology Dr. Du. Endocrinology treated the DKA and blood sugars much improved. Patient's right foot was not salvageable and patient underwent right BKA by Dr. LEROY on 08/28. Patient blood cultures showed MRSA. Patient continued on antibiotics as per ID. MRI of the pelvis and foot completed. Patient required multiple PRBCs for anemia. Patient was found to have a possible small hematoma of the left calf onultrasound. He complains of pain and swelling of the left ankle. Patient hemodynamically stable and plans are to be transferred to stepdown unit. He is on heparin subcu for VTE. After surgery he is now being mobilized by PT and OT.He is wearing a maxine-tech orthotic for right knee/BKA protection. Prior to admission the patient was independent living in a single-story house with his spouse with a few steps up to front and back door. 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 is at bedside. Patient denies nausea, vomiting, fever, chills, chest pain, shortness of breath with dizziness. He is requiring IV Dilaudid for pain control. Mental status back to baseline. Pt is progressing slowly with therapy d/t weakness and pain, self care deficit, decreased endurance and balance, and decreased functional mobility. Pt requiring acute inpt rehab for multidisciplinary team of nursing, therapy, and physicians. Pt iswilling and able to partici- kathleen in 3 hr/day inpt rehab to d/c home safely. Pt's prior level of function was independent. Objective GeneralVS:Vital Signs: Date Time Temp Pulse Resp B/P B/P Pulse O2 O2 Flow FiO2 Mean Ox Delivery Rate 09/09 2334 97.5 82 17 146/73 97.2 97 Room air 09/09 2116 84 95 Room air 09/09 1852 97.3 82 17 165/83 110.6 09/09 1529 97.7 79 18 168/80 109.3 98 Room air 09/09 0709 98.2 88 17 140/71 93.7 94 Room air PATIENT WEIGHT: Weight (lb): 165Weight (oz): 5.55Weight (kg): 75.000 Medications:Active Meds + DC'd Last 24 HrsVancomycin HCl (VANCOMYCIN HCL) 500 MG ONCE ONE IV (DC) Sodium Chloride (SODIUM CHLORIDE 0.9% 100 ML) 100 MLFerric Sodium Gluconate Complex (FERRLECIT) 125 MG DAILY IV Sodium Chloride (SODIUM CHLORIDE 0.9%) 100 MLFolic Acid (FOLIC ACID) 2 MG DAILY PO Multivitamins (TAB-A-MOHAN) 1 TAB DAILY PO Carvedilol (COREG) 12.5 MG C BK DIN PO Hydromorphone HCl (DILAUDID) 0.5 MG Q6H PRN PRN IV Vancomycin HCl (VANCOMYCIN HCL) 500 MG Q24H IV (DC) Sodium Chloride (SODIUM CHLORIDE 0.9% 100 ML) 100 MLInsulin Glargine (Lantus/Semglee) 5 UNIT BEDTIME SUBQ Furosemide (LASIX 20MG INJ) 20 MG BLOOD-DOSE BETWEEN IV (CKD) Sodium Chloride (SODIUM CHLORIDE) 10 ML ASDIR IV Furosemide (LASIX) 20 MG DAILY PO Pantoprazole Sodium (PROTONIX) 40 MG Q12HR IV Polyethylene Glycol (MIRALAX) 17 GM DAILY PO Sennosides (Senna Lax 8.6 MG TABLET) 8.6 MG DAILY PO Sodium Chloride (SODIUM CHLORIDE) 10 ML ASDIR PRN IV Amitriptyline HCl (ELAVIL) 25 MG BEDTIME PO Mupirocin (BACTROBAN 2% 22 GM OINTMENT) 1 APPLIC BID NASAL (DC) Zinc Oxide (ZINC OXIDE 30 GM OINTMENT) 1 APPLIC DAILY TOPICAL Sterile Water (WATER FOR IRRIGATION) DRESSING CHANGE ASDIR PRN IRR Insulin Human Lispro (HUMALOG) 0 AC HS SUBQ Dextrose/Water (DEXTROSE 10% IN WATER) 125 ML ASDIR PRN IV (CKD) Dextrose/Water (DEXTROSE 10% IN WATER) 250 ML ASDIR PRN IV (CKD) Glucagon (GLUCAGON) 1 MG ASDIR PRN IM Hydrocodone Bitart/Acetaminophen (NORCO 10/325) 1 TAB Q4H PRN PRN PO Lidocaine (LIDODERM) 1 PATCH DAILY TOPICAL Insulin Human Lispro (HUMALOG) 5 UNIT AC SUBQ Miscellaneous Information (VANCOMYCIN PHARMACY TO DOSE) 1 EACH ASDIR IV (CKD) Heparin Sodium (HEPARIN 5000 UNITS/ML) 5,000 UNIT Q8HR SUBQ Cefepime HCl (MAXIPIME) 1 GM Q6H IV Sodium Chloride (SODIUM CHLORIDE) 10 MLAcetaminophen (TYLENOL) 650 MG Q6H PRN PRN PO Bisacodyl (DULCOLAX) 10 MG DAILY PRN PRN RECTAL Docusate Sodium (COLACE) 100 MG Q12H PRN PRN PO Hydralazine HCl (APRESOLINE) 10 MG Q6H PRN PRN IV Ondansetron HCl (ZOFRAN) 4 MG Q6H PRN PRN IV Functional ProgressFunctional progress:PT daily note comment: s patient reported decreased swelling to bilateral le, states he feels fatigue from the clean out prep for colonoscopy. REPORTS PAIN 5/10 O. PATIENT SUPINE IN BED WORKED ON LE EX ACROSS ALL PLANES, HIP ABD, SLR, KNEE FLEXION . WORKED ON BED MOB, ABLE TO SIT UP EOB WITH SBA FOR SAFETY USES RAILS, WORKED ON SQUAT PIVOT TRANSFERS TO WITH MIN A, MAXINE TECH ON ,RLE STUMP JOAN WRAPPED, EDUCATED SPOUSE ON FIGURE 8. PATIENT WORKED ON MOB WITH SBA FOR SAFETY , IN THE GYM PATIENT OWRKED ON SIT TO STANDS WITH MOD A, CUES TO PUSHOFF FROM ARMREST. PATIENT WORKED ON DYNAMIC BALANCE EX, HIP FLEX, HIP EXT 10X 1. WORKED ON SIT TO STANDS X5, STATIC STANDING , WEIGHT WHIFTING SIDE TO SIDE. PATIENT WORKED ON WC MOB BACK TO ROOM AND LEFT WITH CALL BUTTON IN REACH A. PATIENT IS PROGRESSING WITH PT, REQUIRES MIN AFOR STAND PIVOT TRANSFERS, WC MOB IMPROVING AND LIMITED BY DEC ACTIVITY TOLERANCE AND WEAKNESS P, CONTINUE WITH POC WITH AN EMPHASIS ON TRANSFERS AND WC MOB, FAMILY TRAINING FOR FIGURE 8 JOAN WRAP Physical ExamGeneral appearance: alert, awakePsych: alert, normal affect, oriented x 3HEENT: anicteric, sclera clearNeck: supple, no JVDCardiovascular: S1/S2, no murmurRespiratory: aerating well, clear bilaterallyAbdomen: bowel sounds present, non-distended, soft, non-tenderSkin: no rash, R BKA HEALING. L ankle/foot wrapped with kerlixMusculoskeletal - general: Musculoskeletal - general: swelling (LLE, calve NT, homans neg), BUE 5/5, LLE4/5, R hip 3-Neuro/DIRECTOR OPERATING ROOM: alert, oriented X 3, CNII-XII intact ResultsFindings/Data:Laboratory Tests: 09/10 09/09 09/09 09/09 09/09 0541 1911 1606 1526 1403 Chemistry POC Glucose (70 - 110 MG/DL) 154 H 102 109 30 L Toxicology Random Vancomycin (mcg/mL) 15.4 09/09 1049 Chemistry POC Glucose (70 - 110 MG/DL) 90 Diagnosis, Assessment PlanProblem List/A P: 1. Gangrene of right foot 2. Below-knee amputation of right lower extremity 3. MRSA bacteremia 4. Cellulitis of foot, right 5. DKA (diabetic ketoacidosis) 6. Hyperglycemia 7. ERIKA (acute kidney injury) 8. Postoperative pain 9. Acute anemia 10. Prostate abscess 11. Impaired functional mobility, balance, gait, and endurance Free Text A P:Assessment:Severe Gas gangrene right foot and right ankle associated with osteomyelitis andnecrotizing fasciitisS/p surgical debridement and washout4/6: S/p right BKA-Dr. LeroySignificant impairment in self-care, ADLs and functional mobilityImpaired mobility and gaitAcute postoperative pain right BKADiabetic polyneuropathyDKA, DM 2, poorly controlled, A1c greater than 14PADMRSA bacteremia/sepsis-treated on acuteAKISevere hyponatremia-resolvedHTNAcute on chronic anemia requiring multiple transfusions, possible GI bleedLeft calf hematomaEdema and clinical arthritis left ankleEarly decubitus to left heel/DTI dorsal left midfootProstatic abscess 08/26: S/p transrectal ultrasound aspiration of abscess and transurethral resection of prostate and unroofing of abscessEcho: EF 55-59%, grade 1 diastolic dysfunction09/02: JIMENA negative for vegetationMRSA OF NARES09/08:s/p EGD and colonoscopy. EGD showed mild gastritis. Colonoscopy showed rectal polyp that was resected by snare. Plan:-PLOF: Independent with transfers and gait-Amputee rehab program-Continue PT and OT-15/12 rehabilitation nursing care.-Case management for safe discharge planning.-Decubitus prevention-Early decubitus to left heel/DTI dorsal left midfoot-zinc oxide to the foot, foam, offloading, podiatry managing-DVT prophylaxis-subcutaneous heparin-Strict fall and safety precautions-Work on bed mobility, transfer training, ADLs, pre-gait and gait exercises-Increase endurance and strength-Monitor pain with therapies-OOB to chair-Monitor p.o. intake and nutrition, albumin 1.3, prealbumin less than 5, dietaryconsultation, protein supplements to promote healing-Continue antibiotics per ID-on cefepime and vancomycin until 10/11 for treatmentof prostatic abscess-Tight glycemia control- endocrine on board, insulin adjustments-Endocrinology, ID, podiatry, cardiology, IM consulted-Pain management adjusting pain medications-Anemia, patient required multiple units of PRBCs on acute, FOBT positive-IV Protonix-consult GI-serial H H-no evidence of gross bleeding-discussed with Dr. TrinidadLaawyikr-Enkfevntiuiz-rhllplksk dmhlvdou-BRI-iyuuqx-CW Senokot and MiraLAX, DSP-Right LKO-lczehim-bngjnbzb resolved, dressings changed wltnm-nmoowoo-mdlwjsnv EVZ-ATDW-ZQXL OF NARES on Bactroban protocol-LLE edema-venous Doppler with complex heterogeneous hypoechoic fluid collectionin the left calf region measuring 8.4, 2.8, 2.5 cm suggestive of hematoma. HoldLasix x3 days. Joan wrap calf-Generalized edema-some shortness of breath and abdominal distention-cardiology gave a dose of IV Lasix-monitor urine output, daily weights-Chest x-ray with minimal basilar pulmonary ynysswpsj-Dcqnjw-qbgxruirtl 8.5, transfused 2 units of PRBC on 09/05-09/08: s/p EGD and colonoscopy. EGD showed mild gastritis. Colonoscopy showed rectal polyp that was resected by snare. Anemia likely secondary to chronic kidney disease. Consult renal.-Chemistries good, creatinine 1.5, magnesium 1.89-Advance therapies as tolerated-discussed treatment plan with patient and -Patient continues to perform well with therapies. Patient is highly motivated but requires rest breaks due to becoming easily fatigued. Patient working on sliding board and stand pivot transfers PM RPlease see team note.Plan and goals discussed with the patient. I agree with the teams findingELOS- [09/19]DC-Home with -Home healthDME-bedside commode, sliding board, wheelchair, Total time 33 minutes greater than 50% of the time spent examining patient, discussing with patient about team conference, anemia, EGD and colonoscopy, holdanticoagulants for a few days, amputee rehab plan of care, goals, therapies, progress, labs, medications. EMR and MAR is reviewed. All questions answeredRehab attestation:Face to face exam completed. Treatment plan discussed with patient. Meets continued stay criteria. Agree with interdisciplinary treatment plan. at 1500 RPT #:[id number] OF REPORTPRProgress [id number]:03:00G.[id number] able for patient [id number]:01:33 [facility] 2022-09-10 05:42:00 [id number] [id number]:42:00 [facility] ([facility])Pain Management Progress NoteREPORT#:[id number] REPORT STATUS: SignedDATE:09/10/22 TIME: 0542 PATIENT: KARMA ROWLAND UNIT #: [id number]#: [id number] [address] [birth year] AGE: 56 SEX: M ATTEND: Mj Vences [facility] AUTHOR: Charlie Quiroga RESEARCH MANUFACTURING OPERATOR * ALL edits or amendments must be made on the electronic/computer document * Charlie Quiroga 09/10/22 0542:SubjectiveChief complaint:Patient seen and examined. Chart/MAR reviewed. Patient states the pain is not controlled with the use of the Sheldon. He still requires the IV dilaudid. I explained I'll adjust medications, but need to wean the IV pain medication. Patient being seen for Acute postoperative pain, right foot and anklegangrene, requiring BKA, Constipation Patient is still requiring medications to help with managing currentproblems. Patient is requiring IV narcotics to help manage breakthrough pain No fever/chills, chest pain, orthopnea, nausea/vomiting, pruritus, orhallucinations.14 point ROS undertaken unremarkable except as noted Objective GeneralVS/I O:Vital Signs Date Temp Pulse Resp B/P B/P Mean Pulse Ox FiO2 09/09 97.3-98.2 79-88 17-18 140-168/71-83 93.7-110.6 94-98 Last Documented: Result Date Time Pulse [...] Intake, Oral 715 PATIENT WEIGHT: Weight (lb): 165Weight (oz): 5.55Weight (kg): 75.000 Medications:Active Meds + DC'd Last 24 HrsVancomycin HCl (VANCOMYCIN HCL) 500 MG ONCE ONE IV (DC) Sodium Chloride (SODIUM CHLORIDE 0.9% 100 ML) 100 MLFerric Sodium Gluconate Complex (FERRLECIT) 125 MG DAILY IV Sodium Chloride (SODIUM CHLORIDE 0.9%) 100 MLFolic Acid (FOLIC ACID) 2 MG DAILY PO Multivitamins (TAB-A-MOHAN) 1 TAB DAILY PO Carvedilol (COREG) 12.5 MG C BK DIN PO Hydromorphone HCl (DILAUDID) 0.5 MG Q6H PRN PRN IV Vancomycin HCl (VANCOMYCIN HCL) 500 MG Q24H IV (DC) Sodium Chloride (SODIUM CHLORIDE 0.9% 100 ML) 100 MLInsulin Glargine (Lantus/Semglee) 5 UNIT BEDTIME SUBQ Furosemide (LASIX 20MG INJ) 20 MG BLOOD-DOSE BETWEEN IV (CKD) Sodium Chloride (SODIUM CHLORIDE) 10 ML ASDIR IV Furosemide (LASIX) 20 MG DAILY PO Pantoprazole Sodium (PROTONIX) 40 MG Q12HR IV Polyethylene Glycol (MIRALAX) 17 GM DAILY PO Sennosides (Senna Lax 8.6 MG TABLET) 8.6 MG DAILY PO Sodium Chloride (SODIUM CHLORIDE) 10 ML ASDIR PRN IV Amitriptyline HCl (ELAVIL) 25 MG BEDTIME PO Mupirocin (BACTROBAN 2% 22 GM OINTMENT) 1 APPLIC BID NASAL (DC) Zinc Oxide (ZINC OXIDE 30 GM OINTMENT) 1 APPLIC DAILY TOPICAL Sterile Water (WATER FOR IRRIGATION) DRESSING CHANGE ASDIR PRN IRR Insulin Human Lispro (HUMALOG) 0 AC HS SUBQ Dextrose/Water (DEXTROSE 10% IN WATER) 125 ML ASDIR PRN IV (CKD) Dextrose/Water (DEXTROSE 10% IN WATER) 250 ML ASDIR PRN IV (CKD) Glucagon (GLUCAGON) 1 MG ASDIR PRN IM Hydrocodone Bitart/Acetaminophen (NORCO 10/325) 1 TAB Q4H PRN PRN PO Lidocaine (LIDODERM) 1 PATCH DAILY TOPICAL Insulin Human Lispro (HUMALOG) 5 UNIT AC SUBQ Miscellaneous Information (VANCOMYCIN PHARMACY TO DOSE) 1 EACH ASDIR IV (CKD) Heparin Sodium (HEPARIN 5000 UNITS/ML) 5,000 UNIT Q8HR SUBQ Cefepime HCl (MAXIPIME) 1 GM Q6H IV Sodium Chloride (SODIUM CHLORIDE) 10 MLAcetaminophen (TYLENOL) 650 MG Q6H PRN PRN PO Bisacodyl (DULCOLAX) 10 MG DAILY PRN PRN RECTAL Docusate Sodium (COLACE) 100 MG Q12H PRN PRN PO Hydralazine HCl (APRESOLINE) 10 MG Q6H PRN PRN IV Ondansetron HCl (ZOFRAN) 4 MG Q6H PRN PRN IV Physical ExamGeneral appearance: alert, awake, oriented, no respiratory distressHead/eyes: atraumatic, EOMI, normocephalic, normal conjunctiva/sclera, PERRLAENT: normal ear left, normal ear right, normal nose, normal pharynx, moist mucosal membranesNeck: full range of motion, no lymphadenopathy, supple/no meningismusCardiovascular: regular rate rhythmRespiratory: clear to auscultation, no distress, aerating wellAbdomen: soft, non-tender, no distention, active bowel sounds in all quarants. Abdomen quadrantsLLQ normal bowel sounds, LUQ normal bowel sounds, RLQ normal bowel sounds, RUQ normal bowel soundsExtremities: moves all, no edema, pedal pulsesNeuro/DIRECTOR OPERATING ROOM: 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, no sensory deficits, CNII-XII grossly intact Considered stroke alert: noSkin: dry, normal color, normal turgorPsychiatry: normal affect ResultsFindings/data:Laboratory Tests: 09/09 09/09 09/09 09/09 09/09 1911 1606 1526 1403 1049 Chemistry POC Glucose (70 - 110 MG/DL) 102 109 30 L 90 Toxicology Random Vancomycin (mcg/mL) 15.4 Diagnosis, Assessment PlanFree text A P:A/P:Patient is a 56 year old male who presents with: Recent prostate abscess-Status post TURP with unroofing of abscess-IV antibiotics with vancomycin until - Acute postoperative pain, right foot and ankle gangrene, requiring BKA-Patient is at risk for further amputations or loss of limb due to comorbid conditions-Status post right BKA 08/28/2022-DC Sheldon 10/325 1 tablet p.o. every 4 hours as needed pain scale 4 10-Tylenol 650 mg p.o. every 6 hours as needed pain scale 1 3-reduce Dilaudid 0.5 mg IV every 12 hours as needed pain scale 7 10, second linetherapy-patient will require close monitoring while using IV narcotics for any deleterious effect-Start Percocet 10/325mg every 4 hours as needed, pain scale 4-10 (09/10)-Lidoderm patch to left ankle daily-IV antibiotics with vancomycin until 8-4-8131-Local wound care-manageable Diabetic peripheral neuropathy-amitriptyline 25mg PO QHS-Start Gabapentin 100mg every 8 hours (09/10)-manageable Hypertension-We will monitor hypertension and tachycardia due to pain, and hypotension as well as bradycardia secondary over sedation with narcotics-Hydralazine as needed Elevated LFTs-08/20/22-AST 51, ALT 22-09/03/2022-AST 15, ALT 7-Patient will require close monitoring since he is using narcotics with Tylenol Impaired functional mobility, balance, gait, and endurance-PT/OT Antalgic/Impaired gait-PT/OT-Improve strength, endurance, self-care, gait, balance, ADLs-Fall precautions per unit protocol-Pain medications as outlined above Constipation-We will monitor while utilizing opioid narcotic medications.-Adequate fluid intake also discussed.-Colace 100 mg p.o. twice daily as needed-Dulcolax 10 mg rectally daily as needed-Senna lax 8.6mg daily-Miralax 17gm daily-manageable Disposition: Past Medical History: Prostate abscess, right foot foot and ankle gangrene, diabetes, hypertension, hyperlipidemiaPast Surgical History: TURP, right BKAFamily History: NoncontributorySocial History: Denies tobacco, alcohol, or drug useAllergies: NKDA Patient has failed conservative medical therapy.Patient will require monitoring while utilize narcotic medications for any adverse effects, and will adjust as neededPlan of care discussed with patient and nurseAll diagnostics of last 24 hours been reviewed. Risks versus benefits of opioid medications were reviewed to include, but not limited to respiratory depression, accidental overdose, altered mental status, sudden , constipation which could result in bowel obstruction, seizures, withdrawal, dependency addiction, risk for falls. Case discussed with Dr Ng whom agrees. Thank you for the consultation. [place] DISABILITY HEARING OFFICER:-database searched, no information found Kingsley Ng 09/28/222001:Attestations Physician AttestationAgree w/findings plan:The patient was seen and examined by Charlie Quiroga. I personally developed thecare plan, which was continued by the mid-level provider. I was immediately available. at 1607 at 2002 RPT #:[id number] OF REPORTPRProgress [id number]:42:00G.[id number] able for patient keskLQXUEMWLNONXFO0065-13-00Q27:07:36 [facility] 2022-09-09 16:51:00 [id number] 0UhNExmtIH7+u/Dbg431qkGZF/kJp 0QF9eH+AKE1QIJ0VoO9jeefg7Fg1183-80-82C30:51:00 [facility] ([facility])Endocrinology Progress NoteREPORT#:[id number] REPORT STATUS: SignedDATE:09/09/22 TIME: 165 PATIENT: KARMA ROWLAND UNIT #: [id number]#: [id number] [address] [birth year] AGE: 56 SEX: M ATTEND: Mj Vences MDADM AUTHOR: Braxton Chapin MD * ALL edits or amendments must be made on the electronic/computer document * SubjectivePatient reports: no complaints Objective GeneralVS:Last Documented: Result Date Time Pulse Ox 98 09/09 1529 B/P 168/80 09/09 1529 B/P Mean 109.3 09/09 1529 O2 Delivery Room air 09/09 1529 Temp 36.5 09/09 1529 Pulse 79 09/09 1529 Resp 18 09/09 1529 O2 Flow Rate 2 09/08 1322 PATIENT WEIGHT: Weight (lb): 165Weight (oz): 5.55Weight (kg): 75.000 Medications:Active Meds + DC'd Last 24 HrsVancomycin HCl (VANCOMYCIN HCL) 500 MG ONCE ONE IV (DC) Sodium Chloride (SODIUM CHLORIDE 0.9% 100 ML) 100 MLFerric Sodium Gluconate Complex (FERRLECIT) 125 MG DAILY IV Sodium Chloride (SODIUM CHLORIDE 0.9%) 100 MLFolic Acid (FOLIC ACID) 2 MG DAILY PO Multivitamins (TAB-A-MOHAN) 1 TAB DAILY PO Carvedilol (COREG) 12.5 MG C BK DIN PO Magnesium Sulfate (MAGNESIUM SULFATE 2GM/SWFI 50ML) 50 ML ONCE ONE IV (DC) Hydromorphone HCl (DILAUDID) 0.5 MG Q6H PRN PRN IV Vancomycin HCl (VANCOMYCIN HCL) 500 MG Q24H IV (DC) Sodium Chloride (SODIUM CHLORIDE 0.9% 100 ML) 100 MLCarvedilol (COREG) 3.125 MG C BK DIN PO (DC) Insulin Glargine (Lantus/Semglee) 5 UNIT BEDTIME SUBQ Furosemide (LASIX 20MG INJ) 20 MG BLOOD-DOSE BETWEEN IV (CKD) Sodium Chloride (SODIUM CHLORIDE) 10 ML ASDIR IV Furosemide (LASIX) 20 MG DAILY PO Pantoprazole Sodium (PROTONIX) 40 MG Q12HR IV Polyethylene Glycol (MIRALAX) 17 GM DAILY PO Sennosides (Senna Lax 8.6 MG TABLET) 8.6 MG DAILY PO Sodium Chloride (SODIUM CHLORIDE) 10 ML ASDIR PRN IV Amitriptyline HCl (ELAVIL) 25 MG BEDTIME PO Mupirocin (BACTROBAN 2% 22 GM OINTMENT) 1 APPLIC BID NASAL (DC) Zinc Oxide (ZINC OXIDE 30 GM OINTMENT) 1 APPLIC DAILY TOPICAL Sterile Water (WATER FOR IRRIGATION) DRESSING CHANGE ASDIR PRN IRR Insulin Human Lispro (HUMALOG) 0 AC HS SUBQ Dextrose/Water (DEXTROSE 10% IN WATER) 125 ML ASDIR PRN IV (CKD) Dextrose/Water (DEXTROSE 10% IN WATER) 250 ML ASDIR PRN IV (CKD) Glucagon (GLUCAGON) 1 MG ASDIR PRN IM Hydrocodone Bitart/Acetaminophen (NORCO 10/325) 1 TAB Q4H PRN PRN PO Lidocaine (LIDODERM) 1 PATCH DAILY TOPICAL Insulin Human Lispro (HUMALOG) 5 UNIT AC SUBQ Miscellaneous Information (VANCOMYCIN PHARMACY TO DOSE) 1 EACH ASDIR IV (CKD) Heparin Sodium (HEPARIN 5000 UNITS/ML) 5,000 UNIT Q8HR SUBQ Cefepime HCl (MAXIPIME) 1 GM Q6H IV Sodium Chloride (SODIUM CHLORIDE) 10 MLAcetaminophen (TYLENOL) 650 MG Q6H PRN PRN PO Bisacodyl (DULCOLAX) 10 MG DAILY PRN PRN RECTAL Docusate Sodium (COLACE) 100 MG Q12H PRN PRN PO Hydralazine HCl (APRESOLINE) 10 MG Q6H PRN PRN IV Ondansetron HCl (ZOFRAN) 4 MG Q6H PRN PRN IV Physical ExamGeneral appearance: alert, awake Diagnosis, Assessment PlanHospital course to date:Laboratory Tests: 09/09 09/09 09/09 09/09 09/09 1606 [...] % (Auto) (14.0 - 32.0 %) 16.1 Len[place] % (Auto) (4.8 - 9.0 %) 9.2 H Eos % (Auto) (0.3 - 3.7 %) 4.7 H Baso % (Auto) (0.0 - 2.0 %) 0.4 Neut # (Auto) (2.0 - 7.6 x10 3/uL) 6.38 Lymph # (Auto) (1.0 - 3.8 x10 3/uL) 1.49 Lenoir # (Auto) (0.1 - 0.8 x10 3/uL) 0.85 H Eos # (Auto) (0.0 - 0.2 x10 3/uL) 0.43 H Baso # (Auto) (0.0 - 0.2 x10 3/uL) 0.04 Abs Immat Gran (auto) (0.00 - 0.03 x10 3/uL) 0.05 H Add Manual Diff NO Immature Gran % (0.0 - 2.0 %) 0.5 Nucleated RBC % (0 - 0 %) 0.0 Nucleated RBCs # (Man) (0.0 - 0.1 x10 3/uL) 0.00 Retic Count (auto) (0.3 - 2.3 [...] (Auto) (14.0 - 32.0 %) 13.7 L Lenoir % (Auto) (4.8 - 9.0 %) 7.2 Eos % (Auto) (0.3 - 3.7 %) 4.8 H Baso % (Auto) (0.0 - 2.0 %) 0.3 Neut # (Auto) (2.0 - 7.6 x10 3/uL) 6.64 Lymph # (Auto) (1.0 - 3.8 x10 3/uL) 1.24 [place]oir # (Auto) (0.1 - 0.8 x10 3/uL) 0.65 Eos # (Auto) (0.0 - 0.2 x10 3/uL) 0.43 H Baso # (Auto) (0.0 - 0.2 x10 3/uL) 0.03 Abs Immat Gran (auto) (0.00 - 0.03 x10 3/uL) 0.06 H Add Manual Diff NO Immature Gran % (0.0 - 2.0 %) 0.7 Nucleated RBC % (0 - 0 %) 0.0 Nucleated RBCs # (Man) (0.0 - 0.1 x10 3/uL) 0.00 Laboratory Tests: 09/07 09/07 09/07 09/07 09/07 1554 1137 1127 0618 0510 Chemistry Creatinine (0.6 - 1.3 mg/dL) 1.4 H POC Glucose (70 - 110 MG/DL) 112 H 51 L 42 L 135 H Hematology Hgb (12.5 - 16.9 [...] 1739 Occult Blood - COMP STOOL Recent Impressions:RADIOLOGY - XR ABDOMEN 1V (KUB) 09/04 1648 Report Impression - Status: SIGNED Entered: 09/04/2022 1757 IMPRESSION: Benign appearance of the abdomen.Impression By: [email or web address] - Roger Parra M.D.ULTRASOUND - DUP VEIN UNI/LTD 09/05 1146 Report Impression - Status: SIGNED Entered: 09/05/2022 1333 IMPRESSION: 1. No evidence of deep vein thrombosis. 2. Complex heterogeneous hypoechoic fluid collection in the left calf region measuring 8.4 x 2.8 x 2.5 cm; there is no internal vascularity or peripheral hyperemia. May represent a hematoma.Impression By: [email or web address] - Mert Ga M.D.RADIOLOGY - XR CHEST 1 V 09/05 1432 Report Impression - Status: SIGNED Entered: 09/05/2022 1515 IMPRESSION: Minimal bibasilar pulmonary opacitiesImpression By: TipTDO - Bishop Mares M.D. Laboratory Tests: 09/04 09/04 09/04 09/04 09/04 [...] COLB STOOL 1.Diabetes mellitus type 2 uncontrolled complications.2. Status post right BKA3. Status post gangrene of the right foot.4. Sepsis5. Prostate abscess.6. AnemiaBlood sugar 125-90 mg/dL.H/H 8.11/17.1Adjust insulin dose.PT and OT. at 1652 RPT #:[id number] OF REPORTPRProgress [id number]:51:00G.[id number] able for patient vzshEVTIQDOBIWFYIH2957-64-29A17:52:43 [facility] 2022-09-09 15:26:00 [id number] iQ4w7Sqp+Qgr+10kGvmwHHC08rC6X da4sbszW3nEhi91nGvJVRooNDNB6172-61-39V55:26:00 [facility] HospitalRehab Team ConferenceREPORT#:[id number] REPORT STATUS: SignedDATE:09/09/22 TIME: 1526 PATIENT: KARMA ROWLAND UNIT #: [id number]#: [id number] [address] [birth year] AGE: 56 SEX: M ATTEND: Mj Vences MDAKENNY AUTHOR: Mj Vences MD * ALL edits or amendments must be made on the electronic/computer document * Rehabilitation Team Conference Weekly Team ConferenceTeam conf information:Date of conference: 09/09/22Conference type: InitialConference scribe: Columba Drew PTA INTERDISCIPLINARY TEAM MEETING PARTICIPANTS: TITLE NAME MD SELENA Butts, SELENA PT Anthony Ro, PT LEXX Yancey OT CM/TRINO Burger NO [facility]ENDEE [facility] Amanda Lai, HAND RIGGER Staff (8) NO ATTENDEE Staff (9) NO ATTENDEE OTHER NAME CREDENTIALS 1 YOU KOVACSITIAN 2 FUNCTIONAL CHANGE: TYPE ADMISSION TOTAL INTERIM TOTAL CHANGE Self care 20 27 7 Transfer 17 22 5 Mobility 8 8 0 Wheelchair distance: Mobility description: BOWEL AND BLADDER STATUS: Bowel continence admission rating: Bladder continence admission rating: Not applicableBowel and bladder team conference update: CONTINENT OF BOWEL CAMARENA TO BSD PATENT INTERDISCIPLINARY TEAM UPDATES: LYDIA team conference update: AAOX4 ABLE TO FEED SELF WITH SET UP 1 PERSON ASSIST WITH DRESS AND HYGINEPT team conference update: PROGRESSING WITH PT, S/P R BKA, REQUIRES JM FRO BEDMBO, TRANSFERS WITH CGA USING SLIDING BOARD, WILL NEED WC FOR DC, SPOUSE IS PRESENT AND SUPPORTIVE. REPORTS INCREASED SWELLING TO LLEOT team conference update: Pt progressing toward goals, limited by R BKA, pain, deficits w adls and mobility Adls: I to Total assist, Xfers: Moderate assist Rec: Drop arm BSC, sliding board, HHOTST team conference update: CM or SW team conference update: PATIENT IS FROM HOME WITH A SUPPORTIVE SPOUSE. PLAN TO DC TO HOME WITH NEEDED DME AND HOME HEALTHOther discipline update 1: P.O INTAKE: 75-100% OF RENAL 3 CARB DIET.Other discipline update 2: Other discipline update 3: REHAB DC GOALS: Patient's identified discharge goal: "I WOULD LIKE TO GO HOME WITH MY FAMILY" PT: PATIENT WILL LIKE TO GET STRONGER TO DC HOME AND GO BACK TO WORK ONCE HE RECEIVED HIS PROSTHETIC OT: "get stronger" Eating discharge goal: Independent (6) Shower/bathe self discharge goal: Independent (6) Upper body dressing discharge goal: Independent (6) Lower body dressing discharge goal: Independent (6) Chair/bed to chair transfer discharge goal: Setup/clean-up only (5) Transfer on/off toilet or commode discharge goal: Supervise/touch asst (4) Walking 50 feet with two turns discharge goal: Med cond/safety concern Walking 150 feet discharge goal: Med cond/safety concern Four steps discharge goal: Med cond/safety concern Twelve steps discharge goal: Med cond/safety concern [place] 150 feet discharge goal: Independent (6) Goal 1 - Bowel function: PATIENT WILL REMAIN CONTINENT OF BOWELGoal 2 - Bladder function: PATIENT WILL REGAIN BLADDER CONTROLNursing goal 3: PATIENT WILL BE FREE FROM FALLS DURING STAYNursing goal 4: PATIENT WILL MAINTAIN SKIN INTEGRITYNursing goal 5: DISCHARGE PLANNING: Barriers to discharge: Fall risk, Endurance, Pain, Caregiver, NWB RLE, DIFFICULTY WITH TRANSFERSStrategies for D/C barriers: Fall recovery training, Evaluate pain control, Scheduled rest breaks, LE EX, WC MOB, TRANSFER TRAINING, CAREGIVER TRAINING Estimated length of stay in days: 17Anticipated discharge date: 09/19/22Discharge date adjustment comment: Identified financial and/or community resource needs: Family/Caregiver training days: [place] day (DATE): 09/18/22Expected discharge destination: HomeAnticipated services upon discharge: Physical therapy, Nursing, Occupational therapy, Home healthAnticipated discharge equipment: Drop arm bedside commode, sliding board Impairment group: amputation of limb NOTE Document ONLY ONE Impairment Group Amputation of limb: unilateral lower limb (R BKA)Etiologic diagnosis:Gas gangrene of right foot and ankle S/P R BKAReview of comorbidities:Postoperative anemia, ERIKA, DM, HTN, diabetic neuropathy, HLD Review/RecommendationsAttestation:This interdisciplinary team conference was led by me and I concur with all decisions made during the team conference and revisions to the individualized overall plan of care. IRF cont stay criteriaSee my note at 1526 RPT #:[id number] OF REPORTCLClinical [id number]:26:00G.[id number] able for patient bpzcILEKKGRDRVRQSW2349-23-28D54:27:31 [facility] 2022-09-09 12:13:00 [id number]+ WVKJA8djWiIgXhSBhUr0+NtGy0nSZ tB5cuCpG/nC/hSRaqkkm/r744Kc6079-92-57P53:13:00 [facility])Podiatry Progress NoteREPORT#:[id number] REPORT STATUS: SignedDATE:09/09/22 TIME: 1213 PATIENT: KARMA ROWLAND UNIT #: [id number]#: [id number] [address] [birth year] AGE: 56 SEX: M ATTEND: Mj Vences AUTHOR: Liam Pedersen DPM * ALL edits or amendments must be made on the electronic/computer document * SubjectiveChief complaint:left heel ulcer. left ankle painPatient reports: no chest pain, no cough, no dizziness, no fatigue, no headache,no nausea Objective GeneralVS:Last Documented: Result Date Time Pulse Ox 94 09/09 708 B/P 140/71 09/09 708 B/P Mean 93.7 09/09 708 O2 Delivery Room air 09/09 708 Temp 36.8 09/09 07 Pulse 88 09/09 0709 Resp 17 09/09 708 O2 Flow Rate 2 09/08 1322 PATIENT WEIGHT: Weight (lb): 165Weight (oz): 5.55Weight (kg): 75.000 Medications:Active Meds + DC'd Last 24 HrsFerric Sodium Gluconate Complex (FERRLECIT) 125 MG DAILY IV Sodium Chloride (SODIUM CHLORIDE 0.9%) 100 MLFolic Acid (FOLIC ACID) 2 MG DAILY PO Multivitamins (TAB-A-MOHAN) 1 TAB DAILY PO Carvedilol (COREG) 12.5 MG C BK DIN PO Magnesium Sulfate (MAGNESIUM SULFATE 2GM/SWFI 50ML) 50 ML ONCE ONE IV (DC) Hydromorphone HCl (DILAUDID) 0.5 MG Q6H PRN PRN IV Vancomycin HCl (VANCOMYCIN HCL) 500 MG Q24H IV (DC) Sodium Chloride (SODIUM CHLORIDE 0.9% 100 ML) 100 MLPropofol (DIPRIVAN 200MG/20ML INJECTION) 20 ML .STK-MED ONE IV (DC) Fentanyl Citrate (SUBLIMAZE) 0 .STK-MED ONE .ROUTE (DC) Propofol (DIPRIVAN 200MG/20ML INJECTION) 20 ML .STK-MED ONE IV (DC) Lidocaine HCl (XYLOCAINE) 0 .STK-MED ONE .ROUTE (DC) Fentanyl Citrate (SUBLIMAZE) 100 MCG PACU Q10MIN PRN PRN IV (DC) Fentanyl Citrate (SUBLIMAZE) 50 MCG PACU Q10MIN PRN PRN IV (DC) Hydralazine HCl (APRESOLINE) 2 MG PACU Q10MIN PRN PRN IV (DC) Insulin Human Lispro (HUMALOG) 0 PACU ONCE PRN SUBQ (DC) Labetalol HCl (LABETALOL HCL) 5 MG PACU Q10MIN PRN PRN IV (DC) Ondansetron HCl (ZOFRAN) 4 MG PACU ONCE PRN IV (DC) Carvedilol (COREG) 3.125 MG C BK DIN PO (DC) Insulin Glargine (Lantus/Semglee) 5 UNIT BEDTIME SUBQ Furosemide (LASIX 20MG INJ) 20 MG BLOOD-DOSE BETWEEN IV (CKD) Sodium Chloride (SODIUM CHLORIDE) 10 ML ASDIR IV Furosemide (LASIX) 20 MG DAILY PO Pantoprazole Sodium (PROTONIX) 40 MG Q12HR IV Polyethylene Glycol (MIRALAX) 17 GM DAILY PO Sennosides (Senna Lax 8.6 MG TABLET) 8.6 MG DAILY PO Sodium Chloride (SODIUM CHLORIDE) 10 ML ASDIR PRN IV Amitriptyline HCl (ELAVIL) 25 MG BEDTIME PO Mupirocin (BACTROBAN 2% 22 GM OINTMENT) 1 APPLIC BID NASAL (DC) Zinc Oxide (ZINC OXIDE 30 GM OINTMENT) 1 APPLIC DAILY TOPICAL Sterile Water (WATER FOR IRRIGATION) DRESSING CHANGE ASDIR PRN IRR Insulin Human Lispro (HUMALOG) 0 AC HS SUBQ Dextrose/Water (DEXTROSE 10% IN WATER) 125 ML ASDIR PRN IV (CKD) Dextrose/Water (DEXTROSE 10% IN WATER) 250 ML ASDIR PRN IV (CKD) Glucagon (GLUCAGON) 1 MG ASDIR PRN IM Hydrocodone Bitart/Acetaminophen (NORCO 10/325) 1 TAB Q4H PRN PRN PO Hydromorphone HCl (DILAUDID) 1 MG Q6H PRN PRN IV (DC) Lidocaine (LIDODERM) 1 PATCH DAILY TOPICAL Insulin Human Lispro (HUMALOG) 5 UNIT AC SUBQ Miscellaneous Information (VANCOMYCIN PHARMACY TO DOSE) 1 EACH ASDIR IV (CKD) Heparin Sodium (HEPARIN 5000 UNITS/ML) 5,000 UNIT Q8HR SUBQ (r) Cefepime HCl (MAXIPIME) 1 GM Q6H IV Sodium Chloride (SODIUM CHLORIDE) 10 MLAcetaminophen (TYLENOL) 650 MG Q6H PRN PRN PO Bisacodyl (DULCOLAX) 10 MG DAILY PRN PRN RECTAL Docusate Sodium (COLACE) 100 MG Q12H PRN PRN PO Hydralazine HCl (APRESOLINE) 10 MG Q6H PRN PRN IV Ondansetron HCl (ZOFRAN) 4 MG Q6H PRN PRN IV I O:24 hour I O ending at 0700: 09/09 0700 09/08 1900 Intake Total 250.00 Output Total 850 Balance -850 250.00 Intake, IV 250.00 Number 1 Bowel Movements Number 0 Incontinent Voids Number Voids 0 Output, Urine 850 Dietitian nutrition assessmentThe data set between the solid lines has been imported from the dietitian's assessment. BMI Calculated: 26.7Nutrition related diagnosis: Nutrition diagnosis details: Nutrition problem: Altered nutrition labsNutrition etiology: DMNutrition signs and symptoms: HYPER/HYPOGLYCEMIA, A1C >14Nutrition prescription: CONTINUE DM DIETDietitian name: Klaus Kaiser, DIETAssessment completed: 09/03/22 Physical ExamGeneral appearance: alert, awake, oriented, pleasant, no respiratory distressWound/incision: Location:left foot Site condition: dp/pt 2/4 left. light touch decreased left foot. ulcer starting at posterior left heel. eccymosis noted. early likely stage 1. left ankle has edema. pain with aggressive ROM left ankle.LE vascular pulse assess:2+ L posterior tibialis, 2+ L dorsalis pedis Considered stroke alert: noUlcer: Location: DTI dorsal left midfoot ResultsFindings/Data:Laboratory Tests: 09/09 09/09 09/09 09/08 1049 0524 0500 1955 Chemistry Sodium (134 - 147 mEq/L) [...] % (Auto) (14.0 - 32.0 %) 16.1 Lenoir % (Auto) (4.8 - 9.0 %) 9.2 H Eos % (Auto) (0.3 - 3.7 %) 4.7 H Baso % (Auto) (0.0 - 2.0 %) 0.4 Neut # (Auto) (2.0 - 7.6 x10 3/uL) 6.38 Lymph # (Auto) (1.0 - 3.8 x10 3/uL) 1.49 Lenoir # (Auto) (0.1 - 0.8 x10 3/uL) 0.85 H Eos # (Auto) (0.0 - 0.2 x10 3/uL) 0.43 H Baso # (Auto) (0.0 - 0.2 x10 3/uL) 0.04 Abs Immat Gran (auto) (0.00 - 0.03 x10 3/uL) 0.05 H Add Manual Diff NO Immature Gran % (0.0 - 2.0 %) 0.5 Nucleated RBC % (0 - 0 %) 0.0 Nucleated RBCs # (Man) (0.0 - 0.1 x10 3/uL) 0.00 09/08 09/08 09/08 1828 1611 1318 Chemistry [...] (0.3 - 2.3 %) 1.3 Diagnosis, Assessment PlanFree Text A P:DM with neuropathyearly decub ulcer left heelOA/edema left ankleDTI dorsal left midfoot zinc oxide to foot and heelfoam to heelon IV abxoffloading bootace wraps to ankle, only when OOB with therapy. Consultants: cardiology, endocrinology, hospitalist, infectious disease, podiatry at 1214 RPT #:[id number] OF REPORTPRProgress [id number]:13:00G.[id number] able for patient cnfxNLHCDULXJALMUW2777-57-42Y94:15:09 [facility] 2022-09-09 11:45:00 [id number] [id number] RqB6pHXqxy11O2e0PJYrdVSr4HY6892-11-95K57:45:00 [facility] ([facility])Infectious Dis. Progress NoteREPORT#:[id number] REPORT STATUS: SignedDATE:09/09/22 TIME: 1145 PATIENT: KARMA ROWLAND UNIT #: [id number]#: [id number] [place] [facility] [place]: [birth year] AGE: 56 SEX: M ATTEND: Mj Vences [facility] AUTHOR: Merry Wolff MD * ALL edits or amendments must be made on the electronic/computer document * SubjectiveHPI:PT is a 56yr old male with history of diabetes mellitus type 2, hypertension whowas admitted with altered mental status and right-sided foot infection. According to him, he noticed a blister on his right foot around 3 days prior to presentation. His foot got progressively more swollen and erythema extended proximally to his lateral foot and ankle. CT abdomen and pelvis with contrast is concerning for possible prostate abscess. CT of lower extremity without contrast shows extensive soft tissue edema with mottled gas in the subcutaneous and intramuscular compartments of the foot, compatible with gas-forming infection. Patient's blood cultures have come back positive for MRSA in 2 out of 2 sets. PT has had persistent (+)Ve cx for MRSA 08/18- 08/22. He underwent a debridement of his foot on 08/19 and cx grew MRSA. PT was started on Vancomycin and clindamycin on 08/18. His MRI showed a prostate abscess. 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 Pt underwent a transrectal aspiration and unroofing of prostate abscess 08/26 and cx grew Citrobacter, Enterococcus, MRSA. He also hada BKA of right leg 08/28. JMIENA done 09/02. Pt was transferred to Rehab on 09/02. 09/08 doing well, no changes overnight, plan for EGD/colon today09/09 doing well, dressing changed from right BKA; rob intact, no drainage, no erythema no swellingPatient reports:Yes: pain controlled. No: cough, diarrhea, fever, headache, nausea, shortness of breath, vomiting. Portions of this section were scribed by Jill Quintero on 09/09/22 at 1145 Objective GeneralVS/I O:Vital SignsDate Temp Pulse Resp B/P B/P Mean Pulse Ox OiX196/-09/09 97.7-98.2 80-91 10- 131-170/64-86 87.1-106.2 94-99 Last Documented: Result Date Time Pulse Ox 94 09/09 0709 B/P 140/71 09/09 0709 B/P Mean 93.7 09/09 0709 O2 Delivery Room air 09/09 0709 Temp 98.2 09/09 0709 Pulse 88 09/09 0709 Resp 17 09/09 0709 O2 Flow Rate 2 09/08 1322 Vital Signs: Date Time Temp Pulse Resp B/P B/P Pulse O2 O2 Flow FiO2 Mean Ox Delivery Rate 09/09 0709 [...] Output, Urine 850 PATIENT WEIGHT: Weight (lb): 165Weight (oz): 5.55Weight (kg): 75.000 Antibiotic start date:Antibiotic: vancomycinStart Date:09/03 Antibiotic: daptomycin Start Date:08/28-09/03 Antibiotic: cefepime Start Date:09/01- Antibiotic: merremStart Date:08/27-09/01 Physical ExamGeneral appearance: alert, awake, orientedHead/Eyes: atraumatic, clear cornea, EOMI, normal conjunctiva/sclera, normal eyelids/periorb, normocephalic, PERRLENT: moist mucosal membranes, normal dentitionNeck: full range of motionCardiovascular: normal heart sounds, regular rate rhythmRespiratory: clear to auscultation, aerating wellAbdomen: non-tender, normal bowel sounds, softExtremities: moves all, right BKA Left foot wound +dressing in placeNeuro/DIRECTOR OPERATING ROOM: alert, oriented X 3 Considered stroke alert: noSkin: dry, intact ResultsFindings/Data:Laboratory Tests 09/09 09/09 09/09 09/08 09/08 1049 0524 0500 1954 1828Chemistry Sodium (134 - 147 mEq/L) 136 Potassium [...] 700.5 H Lactate Dehydrogenase (87 - 241 193IUnits/L) 09/08 09/08 1611 1318 Chemistry POC Glucose [...] % (Auto) (14.0 - 32.0 %) 16.1 [place] % (Auto) (4.8 - 9.0 %) 9.2 H Eos % (Auto) (0.3 - 3.7 %) 4.7 H Baso % (Auto) (0.0 - 2.0 %) 0.4 Neut # (Auto) (2.0 - 7.6 x10 3/uL) 6.38 Lymph # (Auto) (1.0 - 3.8 x10 3/uL) 1.49 [place] # (Auto) (0.1 - 0.8 x10 3/uL) 0.85 H Eos # (Auto) (0.0 - 0.2 x10 3/uL) 0.43 H Baso # (Auto) (0.0 - 0.2 x10 3/uL) 0.04 Abs Immat Gran (auto) (0.00 - 0.03 x10 3/uL) 0.05 H Add Manual Diff NO Immature Gran % (0.0 - 2.0 %) 0.5 Nucleated RBC % (0 - 0 %) 0.0 Nucleated RBCs # (Man) (0.0 - 0.1 x10 3/uL) 0.00 Retic Count (auto) (0.3 - 2.3 %) 1.3 Laboratory Tests: 09/09 09/09 09/09 09/08 09/08 1049 0524 0500 0641 7268Chemistry Sodium (134 - 147 mEq/L) 136 Potassium [...] 700.5 H Lactate Dehydrogenase (87 - 241 193IUnits/L)Hematology WBC (4.5 - 11.0 x10 3/uL) 9.2 [...] % (Auto) (14.0 - 32.0 %) 16.1 [place] % (Auto) (4.8 - 9.0 %) 9.2 H Eos % (Auto) (0.3 - 3.7 %) 4.7 H Baso % (Auto) (0.0 - 2.0 %) 0.4 Neut # (Auto) (2.0 - 7.6 x10 3/uL) 6.38 Lymph # (Auto) (1.0 - 3.8 x10 3/uL) 1.49 [place] # (Auto) (0.1 - 0.8 x10 3/uL) 0.85 H Eos # (Auto) (0.0 - 0.2 x10 3/uL) 0.43 H Baso # (Auto) (0.0 - 0.2 x10 3/uL) 0.04 Abs Immat Gran (auto) (0.00 - 0.03 0.05 Hx10 3/uL) Add Manual Diff NO Immature Gran % (0.0 - 2.0 %) 0.5 Nucleated RBC % (0 - 0 %) 0.0 Nucleated RBCs # (Man) (0.0 - 0.1 0.00x10 3/uL) Retic Count (auto) (0.3 - 2.3 [...] (Auto) (14.0 - 32.0 %) 13.7 L [place] % (Auto) (4.8 - 9.0 %) 7.2 Eos % (Auto) (0.3 - 3.7 %) 4.8 H Baso % (Auto) (0.0 - 2.0 %) 0.3 Neut # (Auto) (2.0 - 7.6 x10 3/uL) 6.64 Lymph # (Auto) (1.0 - 3.8 x10 3/uL) 1.24 [place] # (Auto) (0.1 - 0.8 x10 3/uL) 0.65 Eos # (Auto) (0.0 - 0.2 x10 3/uL) 0.43 H Baso # (Auto) (0.0 - 0.2 x10 3/uL) 0.03 Abs Immat Gran (auto) (0.00 - 0.03 x10 3/uL) 0.06 H Add Manual Diff NO Immature Gran % (0.0 - 2.0 %) 0.7 Nucleated RBC % (0 - 0 %) 0.0 Nucleated RBCs # (Man) (0.0 - 0.1 x10 3/uL) 0.00 Medication(s) Ordered:Anti-Infective Agents Sig/Jan Start time Last Medication Dose Route Stop Time Status Admin Vancomycin HCl 500 MG Q24H 09/08 1300 DC 09/08 Sodium Chloride 100 ML IV 09/25 1259 1403 Miscellaneous 1 EACH ASDIR 09/03 0130 CKD Information IV 10/03 0129 Cefepime HCl 1 GM Q6H 09/02 2100 AC 09/09 Sodium Chloride 10 ML IV 09/13 2059 0740 Blood Formation,Coagulation Sig/Jan Start time Last Medication Dose Route Stop Time Status Admin Ferric Sodium 125 MG DAILY 09/09 0900 AC 09/09 Gluconate Complex IV 09/16 0959 1006 Sodium Chloride 100 ML Heparin Sodium 5,000 UNIT Q8HR 09/02 2200 r 09/06 SUBQ 10/02 2159 0531 Cardiovascular Drugs Sig/Jan Start time Last Medication Dose Route Stop Time Status Admin Carvedilol 12.5 MG C BK DIN 09/09 0800 AC 09/09 PO 10/08 0759 0742 Lidocaine HCl 0 .STK-MED ONE 09/08 1232 DC .ROUTE Hydralazine HCl 2 MG PACU Q10MIN PRN PRN 09/08 0915 DC IV 09/08 1711 Labetalol HCl 5 MG PACU Q10MIN PRN PRN 09/08 0915 DC IV 09/08 1711 Carvedilol 3.125 MG C BK DIN 09/08 0800 DC 09/08 PO 10/08 0759 0746 Hydralazine HCl 10 [...] Citrate 100 MCG PACU Q10MIN PRN PRN 09/08 0915 DC IV 09/08 1711 Fentanyl Citrate 50 MCG PACU Q10MIN PRN PRN 09/08 0915 DC IV 09/08 1711 Amitriptyline HCl 25 MG BEDTIME 09/04 2100 AC 09/08 PO 10/04 2059 2041 Hydrocodone Bitart/ 1 TAB Q4H PRN PRN 09/03 1400 AC 09/08 Acetaminophen PO 10/18 1300 1850 Hydromorphone HCl 1 MG Q6H PRN PRN 09/03 1400 DC 09/07 IV 10/18 1300 2256 Acetaminophen 650 [...] 10 ML ASDIR PRN 09/05 0630 AC 09/09 IV 10/05 0629 0741 Sterile Water See Dose ASDIR PRN 09/03 2030 AC Insts (1) IRR 10/03 202 Dextrose/Water 125 ML ASDIR PRN 09/03 1515 CKD IV 10/03 1514 Dextrose/Water 250 ML ASDIR PRN 09/03 1515 CKD IV 10/03 1514 Gastrointestinal Drugs Sig/Jan Start time Last Medication Dose Route Stop Time Status Admin Ondansetron HCl 4 MG PACU ONCE PRN 09/08 0915 DC IV 09/08 1711 Pantoprazole Sodium 40 MG Q12HR 09/05 09 AC 09/09 IV 10/05 0859 0741 Polyethylene Glycol 17 GM DAILY 09/05 09 AC 09/07 PO 10/05 0859 0849 Sennosides 8.6 MG DAILY 09/05 09 AC 09/07 PO 10/05 0859 0848 Bisacodyl [...] Glargine 5 UNIT BEDTIME 09/07 2100 AC 09/07 SUBQ 10/07 2059 2233 Insulin Human Lispro 0 AC HS 09/03 1630 AC 09/06 SUBQ 10/03 1629 2229 Glucagon 1 MG ASDIR PRN 09/03 1515 IM 10/03 1514 Insulin Human Lispro 5 UNIT AC 09/03 0730 AC 09/09 SUBQ 10/03 0729 0743 Local Anesthetics (Parenteral) Sig/Jan Start time Last Medication Dose Route Stop Time Status Admin Lidocaine 1 PATCH DAILY 09/03 09 AC 09/09 TOPICAL 10/03 0859 0743 Skin And Mucous Membrane Agent Sig/Jan Start time Last Medication Dose Route Stop Time Status Admin Mupirocin 1 APPLIC BID 09/04 2100 DC 09/09 NASAL 09/09 0901 0744 Zinc Oxide 1 APPLIC DAILY 09/04 09 AC 09/09 TOPICAL 10/04 0859 0744 Vitamins Sig/Jan Start time Last Medication Dose Route Stop Time Status Admin Folic Acid 2 MG DAILY 09/09 09 AC 09/09 PO 10/09 0859 0741 Multivitamins 1 TAB DAILY 09/09 09 AC 09/09 PO 10/09 0859 0741 Dose Instructions:(1)Sterile Water: DRESSING CHANGE Portions of this section were scribed by Jill Quintero on 09/09/22 at 1145 Diagnosis, Assessment PlanFree Text A P:*MRSA bacteremia-Initial blood cultures from 08/18/2022 positive for MRSA in 2 out of 2 sets.-Repeat blood cultures 08/21/2022 are already positive for MRSA in 2 out of 2 sets, suggesting persistent high-grade bacteremia.-TTE 08/18/2022 negative for any obvious vegetations.-08/28 neg-JIMENA 09/02 neg*Prostatic abscess-s/p transrectal aspiration and unroofing on 08/26-cx MRSA, citrobacter (r-cefazolin) Enterococcus raffinosus (S-amp,pcn, vancomycin), bacteriodes*ERIKA*Hyponatremia*Diabetic neuropathy*Diabetes mellitus type 2*Hypertension*anemia 09/08-cont on Cefepime and vancomycin til 5/3 for treatment of Prostate abscess-follow esr and crp-EGD today 09/09-on cefepime and vancomycin til 5/3 for treatment of prostate abscess Consultants: cardiology, endocrinology, hospitalist, infectious disease, podiatry Portions of this section were scribed by Jill Quintero on 09/09/22 at 1145 at 2050 [facility] #:[id number] OF REPORTPRProgress [id number]:45:00G.[id number] able for patient nzmeLLBZATNRFFKTCS8042-70-76G18:50:51 [facility] 2022-09-09 11:38:00 [id number] NSe2LoBXWu6TVsKzEFcg7B7gX7Hhb XvfTQIzuEtBCs86GfHV+3VupJl07206-77-53K81:38:00 [facility] ([facility])Gastroenterology Progress NoteREPORT#:[id number] REPORT STATUS: SignedDATE:09/09/22 TIME: 1138 PATIENT: KARMA ROWLAND UNIT #: [id number]#: [id number] ROOM/BED: 537-1DOB: [birth year] AGE: 56 SEX: M ATTEND: Mj Vences [facility] AUTHOR: Kassie Avitia MD * ALL edits or amendments must be made on the electronic/computer document * SubjectiveHPI:Patient is a 56-year-old male with history of diabetes mellitus type 2 and hypertension who was initially admitted for altered mental status and right-sided foot infection. 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 The patient is anemic with current Hgb 7.1. He has received a total of 3 units pRBCs during this hospitalization. KUB on 09/04 was negative for acute GI process. The patient denies overt GIB, dark tarry stools, nausea, abdominal pain, or vomiting. He has never had EGD orcolonoscopy. 09/06: No complaints today. Hemoglobin stable. No overt GI bleed. Plan for colonoscopy and endoscopy on Thursday 09/07: No complaints today. No overt GI bleed. Planning for colonoscopy and endoscopy tomorrow 09/08: EGD mild gastritis. colonoscopy rectal polyp s/p snare. No other abnormalities 09/09: doing well. Seen at the gym. No bleeding. Objective Physical ExamHEENT: atraumatic, normocephalicNeck: full range of motion, non-tenderRespiratory: symmetric expansion, no distressAbdomen: non-tender, normal bowel sounds, soft, no distention, no guardingExtremities: right BKA Considered stroke alert: noSkin: dry Diagnosis, Assessment PlanFree Text A P:1. Positive FOBT-and anemia: The patient denies overt GIB, dark tarry stools, nausea, abdominal pain, or vomiting. He is not on anticoagulation therapy.-Continue PPI. The patient has never had EGD or colonoscopys/p EGD and colonoscopy. EGD showed mild gastritis. Colonoscopy showed rectal polyp that was resected by snare. no evidence of bleeding. Anemia likely secondary to chronic kidney disease.Can consider video capsule endoscopy as outpt Will follow Consultants: cardiology, endocrinology, hospitalist, infectious disease, podiatry at 1140 RPT #:[id number] OF REPORTPRProgress [id number]:38:00G.[id number] able for patient acxjIPKVIEUBHJCBDX3937-88-45V04:40:29 [facility] 2022-09-09 10:43:00 [id number] iw5wRSCd3QQRUOft4PAZ+82EVuw2p 2/gslsMI19YoUBRoIndCXnNG9CS4890-11-75U45:43:00 [facility] Prog.Note-VancomycinREPORT#:[id number] REPORT STATUS: SignedDATE:09/09/22 TIME: 1043 PATIENT: KARMA ROWLAND UNIT #: [id number]#: [id number] [address] [birth year] AGE: 56 SEX: M ATTEND: Mj Vences [facility] AUTHOR: Joselyn Stock [facility] * ALL edits or amendments must be made on the electronic/computer document * Vancomycin Vancomycin Medication TherapyGoal: Random 15-20 mcg/mLIndication for treatment:OM and MRSA BacteremiaVS and I/O:Vital Signs Date Temp Pulse Resp B/P B/P Mean Pulse Ox FiO2 09/06-09/09 97.3-98.8 80-98 10-20 131-177/64-90 0.0-118.8 94-99 72 hours ending at 0700 09/09 0700 09/08 1900 09/08 0700 09/07 1900 09/07 09/06 0700 1900Intake 250.00 2000TotalOutput 997 238 4112 1000TotalBalance -850 250.00 1400 -1500 -1000 Intake, IV 250.00Intake, 2000OralNumber 1 2BowelMovementsNumber 0 0 0 0IncontinentVoidsNumber 0 0 0 0VoidsOutput, 906 328 1109 1000Urine 72 Hour I O Total 09/09 0700 09/08 0700 09/07 0700 Intake Total 250.00 2000 Output Total 271 437 8061 Balance -600.00 1400 -2500 Labs:Laboratory Tests: 09/08 09/07 09/06 1045 0510 1553 Toxicology Vancomycin Trough (10.0 - 20.0 mcg/mL) 18.9 Random Vancomycin (mcg/mL) 15.8 14.7 Laboratory Test : 09/09 09/08 09/07 0500 0615 0510 Chemistry BUN (7 - 18 mg/dL) 23 H 22 H Creatinine (0.6 - 1.3 mg/dL) 1.5 H 1.4 H 1.4 H Hematology WBC (4.5 - 11.0 x10 3/uL) 9.2 9.1 Treatment plan: consultRegimen:56yo male with PMH of T2DM and HTN who was admitted with AMS and right-sided foot infection. According to him, he noticed a blister on his right foot around3 days prior to presentation on 08/18. His foot got progressively more swollen and erythema extended proximally to his lateral foot and ankle. Patient's BCx had persistent BCx for MRSA 08/18- 08/22. He underwent a debridement of his foot on 08/19 and Cx grew MRSA. Pt was started on Vancomycin and clindamycin on 08/18.Patient is s/p ICU stay with merrem/daptomycin. ID adjusted regimen to cefepime/vancomycin. Pharmacy consulted to dose vancomycin. Consulting provider: Doris Wolffication: Osteomyelitis of the Talus, Calcaneus, and Navicular Bone; MRSA Bacteremia; Prostatic AbscessGoal Random: 15-20 mcg/mLConcomitant Abx: CefepimeDuration of Therapy: 09/24/22 Assessment:Labs/Vitals* Afebrile/24hrs, WBC 9.2, BUN/SCr 10/0.9, UOP/24hrs 2 voidsMicro* MRSA nares (09/03) positive* WCx (08/26) Citrobacter Farmeri (R Ampicillin, Cefazolin), Enterococcus Raffinosus (R Tetracycline), MRSAImaging* CT Abd/Pelvis (08/18) possible abscess* RLE MRI (08/21) osteomyelitis of the talus, calcaneus, navicular boneLevel* Peak (09/03) 27.7 mcg/mL; Trough (09/04) 12.8 mcg/mL; Calculated AUC 462 mcg*hr/mL, therefore tehrapeutic on Vancomycin 1gm IV q24h* Trough (09/06)* Random (09/07 @0510) 14.7 mcg/mL; s/p Vanc 1gm IV x1 09/05 @2009; Calculated half-life = 35.8hrs* Random (09/08 @1045) 15.8 mcg/mL; s/p Vanc 750mg IV x1 09/07 @1102* Given patient's renal function has been elevated, yet stable, Vancomycin 500mgIV q24h was initiated* Random (09/09 @1403) 15.4 mcg/mL; s/p Vanc 500mg IV x1 09/08 @1403 Plan:* Considering risk for accumulation, will dose by level for at least one more day; Give Vancomycin 500mg IV x1* Draw random level 09/10 @1500; possibly transition to AUC-based dosing tomorrow based on level at 1526 RPT #:[id number] OF REPORTPRProgress [id number]:43:00G.[id number] able for patient okkqVSXQWMCDOXBARG7406-68-01B90:27:31 [facility] 2022-09-09 10:42:00 [id number] g0GRzdEFqgg523YxX39VMQNm3+znt hB6sGjTG9qINEDjodoEDJdxC1e79340-72-54H47:42:00 [facility] ([facility]Re[facility] Progress NoteREPORT#:[id number] REPORT STATUS: SignedDATE:09/09/22 TIME: 1042 PATIENT: KARMA ROWLAND UNIT #: [id number]#: [id number] [place] [facility] [place]DOB: [birth year] AGE: 56 SEX: M ATTEND: Mj Vences [facility] AUTHOR: Mj Vences MD * ALL edits or amendments must be made on the electronic/computer document * SubjectiveChief complaint:Rehabilitation follow-upPatient doing well todayWorking with therapyDoing better+ BMEating 75-100%Denies DICKENS/N/V/D/CP14 systems reviewed and neg. except that above.History of present illness:56 yo HAM with long h/o DM, and HTN who was admitted for fever, flulike symptomsand altered mental status on 08/18. He was doing well until about 3 days prior toadmission when he noted blister to have formed on the dorsum of his foot. His foot started progressively getting more swollen and the blisters started enlarging and extending to his lateral foot and ankle. He started feeling weak and nauseated. He was noted to have altered mentation and was brought to our ER.He was noted to be in DKA with Blood sugars greater than 600. He was seen by podiatry and surgery for BLE wounds and infection. He was treated in ICU for sepsis and DKA. He underwent incisional and excisional debridement of right footand right ankle by podiatry. Patient also found to have prostate abscess underwent transrectal ultrasound aspiration of abscess and transurethral resection of prostate and unroofing of abscess by urology Dr. Du. Endocrinology treated the DKA and blood sugars much improved. Patient's right foot was not salvageable and patient underwent right BKA by Dr. LEROY on 08/28. Patient blood cultures showed MRSA. Patient continued on antibiotics as per ID. MRI of the pelvis and foot completed. Patient required multiple PRBCs for anemia. Patient was found to have a possible small hematoma of the left calf onultrasound. He complains of pain and swelling of the left ankle. Patient hemodynamically stable and plans are to be transferred to stepdown unit. He is on heparin subcu for VTE. After surgery he is now being mobilized by PT and OT.He is wearing a maxine-tech orthotic for right knee/BKA protection. Prior to admission the patient was independent living in a single-story house with his spouse with a few steps up to front and back door. 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 is at bedside. Patient denies nausea, vomiting, fever, chills, chest pain, shortness of breath with dizziness. He is requiring IV Dilaudid for pain control. Mental status back to baseline. Pt is progressing slowly with therapy d/t weakness and pain, self care deficit, decreased endurance and balance, and decreased functional mobility. Pt requiring acute inpt rehab for multidisciplinary team of nursing, therapy, and physicians. Pt iswilling and able to partici- kathleen in 3 hr/day inpt rehab to d/c home safely. Pt's prior level of function was independent. Objective GeneralVS:Vital Signs: Date Time Temp Pulse Resp B/P B/P Pulse O2 O2 Flow FiO2 Mean Ox Delivery Rate 09/09 0709 98.2 88 17 140/71 93.7 94 Room air 09/09 0021 97.7 87 16 133/64 87.1 96 09/08 2004 97.9 91 15 150/73 98.9 96 09/08 1632 88 159/80 106.2 98 09/08 1345 98.2 85 12 163/85 96 Room air PATIENT WEIGHT: Weight (lb): 165Weight (oz): 5.55Weight (kg): 75.000 Medications:Active Meds + DC'd Last 24 HrsFerric Sodium Gluconate Complex (FERRLECIT) 125 MG DAILY IV Sodium Chloride (SODIUM CHLORIDE 0.9%) 100 MLFolic Acid (FOLIC ACID) 2 MG DAILY PO Multivitamins (TAB-A-MOHAN) 1 TAB DAILY PO Carvedilol (COREG) 12.5 MG C BK DIN PO Magnesium Sulfate (MAGNESIUM SULFATE 2GM/SWFI 50ML) 50 ML ONCE ONE IV (DC) Hydromorphone HCl (DILAUDID) 0.5 MG Q6H PRN PRN IV Vancomycin HCl (VANCOMYCIN HCL) 500 MG Q24H IV (DC) Sodium Chloride (SODIUM CHLORIDE 0.9% 100 ML) 100 MLCarvedilol (COREG) 3.125 MG C BK DIN PO (DC) Insulin Glargine (Lantus/Semglee) 5 UNIT BEDTIME SUBQ Furosemide (LASIX 20MG INJ) 20 MG BLOOD-DOSE BETWEEN IV (CKD) Sodium Chloride (SODIUM CHLORIDE) 10 ML ASDIR IV Furosemide (LASIX) 20 MG DAILY PO Pantoprazole Sodium (PROTONIX) 40 MG Q12HR IV Polyethylene Glycol (MIRALAX) 17 GM DAILY PO Sennosides (Senna Lax 8.6 MG TABLET) 8.6 MG DAILY PO Sodium Chloride (SODIUM CHLORIDE) 10 ML ASDIR PRN IV Amitriptyline HCl (ELAVIL) 25 MG BEDTIME PO Mupirocin (BACTROBAN 2% 22 GM OINTMENT) 1 APPLIC BID NASAL (DC) Zinc Oxide (ZINC OXIDE 30 GM OINTMENT) 1 APPLIC DAILY TOPICAL Sterile Water (WATER FOR IRRIGATION) DRESSING CHANGE ASDIR PRN IRR Insulin Human Lispro (HUMALOG) 0 AC HS SUBQ Dextrose/Water (DEXTROSE 10% IN WATER) 125 ML ASDIR PRN IV (CKD) Dextrose/Water (DEXTROSE 10% IN WATER) 250 ML ASDIR PRN IV (CKD) Glucagon (GLUCAGON) 1 MG ASDIR PRN IM Hydrocodone Bitart/Acetaminophen (NORCO 10/325) 1 TAB Q4H PRN PRN PO Lidocaine (LIDODERM) 1 PATCH DAILY TOPICAL Insulin Human Lispro (HUMALOG) 5 UNIT AC SUBQ Miscellaneous Information (VANCOMYCIN PHARMACY TO DOSE) 1 EACH ASDIR IV (CKD) Heparin Sodium (HEPARIN 5000 UNITS/ML) 5,000 UNIT Q8HR SUBQ Cefepime HCl (MAXIPIME) 1 GM Q6H IV Sodium Chloride (SODIUM CHLORIDE) 10 MLAcetaminophen (TYLENOL) 650 MG Q6H PRN PRN PO Bisacodyl (DULCOLAX) 10 MG DAILY PRN PRN RECTAL Docusate Sodium (COLACE) 100 MG Q12H PRN PRN PO Hydralazine HCl (APRESOLINE) 10 MG Q6H PRN PRN IV Ondansetron HCl (ZOFRAN) 4 MG Q6H PRN PRN IV Physical ExamGeneral appearance: alert, awake, no acute distressPsych: alert, normal affect, oriented x 3HEENT: anicteric, sclera clearNeck: supple, no JVDCardiovascular: S1/S2, no murmurRespiratory: aerating well, clear bilaterallyAbdomen: bowel sounds present, non-distended, soft, non-tenderSkin: no rash, R BKA HEALING. L ankle/foot wrapped with kerlixMusculoskeletal - general: Musculoskeletal - general: swelling (LLE, calve NT, homans neg), BUE 5/5, LLE4/5, R hip 3-Neuro/DIRECTOR OPERATING ROOM: alert, oriented X 3, CNII-XII intact ResultsFindings/Data:Laboratory Tests: 09/09 09/09 09/09 09/08 09/08 1049 0524 0500 1955 1828Chemistry Sodium (134 - 147 mEq/L) 136 Potassium [...] 700.5 H Lactate Dehydrogenase (87 - 241 193IUnits/L)Hematology WBC (4.5 - 11.0 x10 3/uL) 9.2 [...] % (Auto) (14.0 - 32.0 %) 16.1 [place] % (Auto) (4.8 - 9.0 %) 9.2 H Eos % (Auto) (0.3 - 3.7 %) 4.7 H Baso % (Auto) (0.0 - 2.0 %) 0.4 Neut # (Auto) (2.0 - 7.6 x10 3/uL) 6.38 Lymph # (Auto) (1.0 - 3.8 x10 3/uL) 1.49 Lenoir # (Auto) (0.1 - 0.8 x10 3/uL) 0.85 H Eos # (Auto) (0.0 - 0.2 x10 3/uL) 0.43 H Baso # (Auto) (0.0 - 0.2 x10 3/uL) 0.04 Abs Immat Gran (auto) (0.00 - 0.03 0.05 Hx10 3/uL) Add Manual Diff NO Immature Gran % (0.0 - 2.0 %) 0.5 Nucleated RBC % (0 - 0 %) 0.0 Nucleated RBCs # (Man) (0.0 - 0.1 0.00x10 3/uL) Retic Count (auto) (0.3 - 2.3 %) 1.3 09/08 1611 Chemistry POC Glucose (70 - 110 MG/DL) 120 H Diagnosis, Assessment PlanProblem List/A P: 1. Gangrene of right foot 2. Below-knee amputation of right lower extremity 3. MRSA bacteremia 4. Cellulitis of foot, right 5. DKA (diabetic ketoacidosis) 6. Hyperglycemia 7. ERIKA (acute kidney injury) 8. Postoperative pain 9. Acute anemia 10. Prostate abscess 11. Impaired functional mobility, balance, gait, and endurance Free Text A P:Assessment:Severe Gas gangrene right foot and right ankle associated with osteomyelitis andnecrotizing fasciitisS/p surgical debridement and washout4/6: S/p right BKA-Dr. Greenberggnificant impairment in self-care, ADLs and functional mobilityImpaired mobility and gaitAcute postoperative pain right BKADiabetic polyneuropathyDKA, DM 2, poorly controlled, A1c greater than 14PADMRSA bacteremia/sepsis-treated on acuteAKISevere hyponatremia-resolvedHTNAcute on chronic anemia requiring multiple transfusions, possible GI bleedLeft calf hematomaEdema and clinical arthritis left ankleEarly decubitus to left heel/DTI dorsal left midfootProstatic abscess 08/26: S/p transrectal ultrasound aspiration of abscess and transurethral resection of prostate and unroofing of abscessEcho: EF 55-59%, grade 1 diastolic dysfunction09/02: JIMENA negative for vegetationMRSA OF NARES09/08:s/p EGD and colonoscopy. EGD showed mild gastritis. Colonoscopy showed rectal polyp that was resected by snare. Plan:-PLOF: Independent with transfers and gait-Amputee rehab program-Continue PT and OT-15/12 rehabilitation nursing care.-Case management for safe discharge planning.-Decubitus prevention-Early decubitus to left heel/DTI dorsal left midfoot-zinc oxide to the foot, foam, offloading, podiatry managing-DVT prophylaxis-subcutaneous heparin-Strict fall and safety precautions-Work on bed mobility, transfer training, ADLs, pre-gait and gait exercises-Increase endurance and strength-Monitor pain with therapies-OOB to chair-Monitor p.o. intake and nutrition, albumin 1.3, prealbumin less than 5, dietaryconsultation, protein supplements to promote healing-Continue antibiotics per ID-on cefepime and vancomycin until 10/11 for treatmentof prostatic abscess-Tight glycemia control- endocrine on board, insulin adjustments-Endocrinology, ID, podiatry, cardiology, IM consulted-Pain management adjusting pain medications-Anemia, patient required multiple units of PRBCs on acute, FOBT positive-IV Protonix-consult GI-serial H H-no evidence of gross bleeding-discussed with Dr. TrinidadFgtsdjew-Qurgoljrdziz-hcvkseahm peotpjrk-CSO-rwnnwa-CW Senokot and MiraLAX, DSP-Right WDO-thyzyau-awvkefsm resolved, dressings changed qtohh-zzhebci-nsnwzllq AGP-IJPQ-IKQF OF NARES on Bactroban protocol-LLE edema-venous Doppler with complex heterogeneous hypoechoic fluid collectionin the left calf region measuring 8.4, 2.8, 2.5 cm suggestive of hematoma. HoldLasix x3 days. Joan wrap calf-Generalized edema-some shortness of breath and abdominal distention-cardiology gave a dose of IV Lasix-monitor urine output, daily weights-Chest x-ray with minimal basilar pulmonary vqohflooo-Fxqcek-ihltrohezb 8.5, transfused 2 units of PRBC on 09/05-09/08: s/p EGD and colonoscopy. EGD showed mild gastritis. Colonoscopy showed rectal polyp that was resected by snare. Anemia likely secondary to chronic kidney disease. Consult renal.-Chemistries good, creatinine 1.5, magnesium 1.89-Advance therapies as tolerated-discussed treatment plan with patient and -Patient continues to perform well with therapies. Patient is highly motivated but requires rest breaks due to becoming easily fatigued. Patient working on sliding board and stand pivot transfers-Team conference Progress: PATIENT IS PROGRESSING WITH PT, REQUIRES MIN A FOR STAND PIVOT TRANSFERS, WC MOB IMPROVING AND LIMITED BY DEC ACTIVITY TOLERANCE AND WEAKNESS PM RPlease see team note.Plan and goals discussed with the patient. I agree with the teams findingELOS- [09/19]DC-Home with -Home healthDME-bedside commode, sliding board, wheelchair, Total time 33 minutes greater than 50% of the time spent examining patient, discussing with patient about team conference, anemia, EGD and colonoscopy, holdanticoagulants for a few days, amputee rehab plan of care, goals, therapies, progress, labs, medications. EMR and MAR is reviewed. All questions answeredOrders: Procedure Date/time Status OT EXERCISE 15MIN 09/09 UNK Complete Consultants: cardiology, endocrinology, hospitalist, infectious disease, podiatryRehab attestation:Face to face exam completed. Treatment plan discussed with patient. Meets continued stay criteria. Agree with interdisciplinary treatment plan. at 1526 [facility] #:[id number] OF REPORTPRProgress [id number]:42:00G.[id number] able for patient nicnOPIEXBISTSEFUW0415-20-63V45:26:51 [facility] 09:56:00 [id number] blKKw0piNDiJ3vZ1YYoG6nPpdrR2Q +e1Vu9RSq4VozFTfKBdHhPX8hP42352-92-88F52:56:00 [facility] ([facility])Cardiology Progress NoteREPORT#:[id number] REPORT STATUS: SignedDATE:09/09/22 TIME: 09 PATIENT: KARMA ROWLAND UNIT #: [id number]#: [id number] [address] [birth year] AGE: 56 SEX: M ATTEND: Mj Vences [facility] AUTHOR: Rohit Benitez RESEARCH MANUFACTURING OPERATOR * ALL edits or amendments must be made on the electronic/computer document * Rohit Benitez 09/09/22 0956:SubjectiveChief complaint:weakness Free Text Subj NotesFree Text Subj Notes:Patient seen and evaluated. Chart reviewed. No new symptoms, feeling well. Denies chest pain, palpitations, or shortness of breath. Objective GeneralVS/I O:24 hour I O ending at 0700: 09/09 0700 09/08 1900 Intake Total 250.00 Output Total 850 Balance -850 250.00 Intake, IV 250.00 Number 1 Bowel Movements Number 0 Incontinent Voids Number Voids 0 Output, Urine 850 Vital Signs: Date Time Temp Pulse Resp B/P B/P Pulse O2 O2 Flow FiO2 Mean Ox Delivery Rate 09/09 0709 [...] 99 Room air PATIENT WEIGHT: Weight (lb): 165Weight (oz): 5.55Weight (kg): 75.000 Medications:Active Meds + DC'd Last 24 HrsFerric Sodium Gluconate Complex (FERRLECIT) 125 MG DAILY IV Sodium Chloride (SODIUM CHLORIDE 0.9%) 100 MLFolic Acid (FOLIC ACID) 2 MG DAILY PO Multivitamins (TAB-A-MOHAN) 1 TAB DAILY PO Carvedilol (COREG) 12.5 MG C BK DIN PO Magnesium Sulfate (MAGNESIUM SULFATE 2GM/SWFI 50ML) 50 ML ONCE ONE IV (DC) Hydromorphone HCl (DILAUDID) 0.5 MG Q6H PRN PRN IV Vancomycin HCl (VANCOMYCIN HCL) 500 MG Q24H IV Sodium Chloride (SODIUM CHLORIDE 0.9% 100 ML) 100 MLPropofol (DIPRIVAN 200MG/20ML INJECTION) 20 ML .STK-MED ONE IV (DC) Fentanyl Citrate (SUBLIMAZE) 0 .STK-MED ONE .ROUTE (DC) Propofol (DIPRIVAN 200MG/20ML INJECTION) 20 ML .STK-MED ONE IV (DC) Lidocaine HCl (XYLOCAINE) 0 .STK-MED ONE .ROUTE (DC) Fentanyl Citrate (SUBLIMAZE) 100 MCG PACU Q10MIN PRN PRN IV (DC) Fentanyl Citrate (SUBLIMAZE) 50 MCG PACU Q10MIN PRN PRN IV (DC) Hydralazine HCl (APRESOLINE) 2 MG PACU Q10MIN PRN PRN IV (DC) Insulin Human Lispro (HUMALOG) 0 PACU ONCE PRN SUBQ (DC) Labetalol HCl (LABETALOL HCL) 5 MG PACU Q10MIN PRN PRN IV (DC) Ondansetron HCl (ZOFRAN) 4 MG PACU ONCE PRN IV (DC) Carvedilol (COREG) 3.125 MG C BK DIN PO (DC) Insulin Glargine (Lantus/Semglee) 5 UNIT BEDTIME SUBQ Furosemide (LASIX 20MG INJ) 20 MG BLOOD-DOSE BETWEEN IV (CKD) Sodium Chloride (SODIUM CHLORIDE) 10 ML ASDIR IV Furosemide (LASIX) 20 MG DAILY PO Pantoprazole Sodium (PROTONIX) 40 MG Q12HR IV Polyethylene Glycol (MIRALAX) 17 GM DAILY PO Sennosides (Senna Lax 8.6 MG TABLET) 8.6 MG DAILY PO Sodium Chloride (SODIUM CHLORIDE) 10 ML ASDIR PRN IV Amitriptyline HCl (ELAVIL) 25 MG BEDTIME PO Mupirocin (BACTROBAN 2% 22 GM OINTMENT) 1 APPLIC BID NASAL (DC) Zinc Oxide (ZINC OXIDE 30 GM OINTMENT) 1 APPLIC DAILY TOPICAL Sterile Water (WATER FOR IRRIGATION) DRESSING CHANGE ASDIR PRN IRR Insulin Human Lispro (HUMALOG) 0 AC HS SUBQ Dextrose/Water (DEXTROSE 10% IN WATER) 125 ML ASDIR PRN IV (CKD) Dextrose/Water (DEXTROSE 10% IN WATER) 250 ML ASDIR PRN IV (CKD) Glucagon (GLUCAGON) 1 MG ASDIR PRN IM Hydrocodone Bitart/Acetaminophen (NORCO 10/325) 1 TAB Q4H PRN PRN PO Hydromorphone HCl (DILAUDID) 1 MG Q6H PRN PRN IV (DC) Lidocaine (LIDODERM) 1 PATCH DAILY TOPICAL Insulin Human Lispro (HUMALOG) 5 UNIT AC SUBQ Miscellaneous Information (VANCOMYCIN PHARMACY TO DOSE) 1 EACH ASDIR IV (CKD) Heparin Sodium (HEPARIN 5000 UNITS/ML) 5,000 UNIT Q8HR SUBQ (r) Cefepime HCl (MAXIPIME) 1 GM Q6H IV Sodium Chloride (SODIUM CHLORIDE) 10 MLAcetaminophen (TYLENOL) 650 MG Q6H PRN PRN PO Bisacodyl (DULCOLAX) 10 MG DAILY PRN PRN RECTAL Docusate Sodium (COLACE) 100 MG Q12H PRN PRN PO Hydralazine HCl (APRESOLINE) 10 MG Q6H PRN PRN IV Ondansetron HCl (ZOFRAN) 4 MG Q6H PRN PRN IV Physical ExamGeneral appearance: alert, awake, orientedNeck: no bruit/NL carotids, no JVDCardiovascular: CV assessment: regular rate and rhythm, no ectopy, no gallopRespiratory: clear to auscultation, no distressAbdomen: soft, non-tenderLower extremity: LE assessment: edema, normal temperatureNeuro/DIRECTOR OPERATING ROOM: alert, oriented X 3 Considered stroke alert: noWound/incision: Location:right bkaPsychiatry: normal affect, normal judgment/insight, normal mood ResultsFindings/Data:Laboratory Tests 09/09 09/09 09/08 09/08 0524 0500 [...] % (Auto) (14.0 - 32.0 %) 16.1 [place] % (Auto) (4.8 - 9.0 %) 9.2 H Eos % (Auto) (0.3 - 3.7 %) 4.7 H Baso % (Auto) (0.0 - 2.0 %) 0.4 Neut # (Auto) (2.0 - 7.6 x10 3/uL) 6.38 Lymph # (Auto) (1.0 - 3.8 x10 3/uL) 1.49 Lenoir # (Auto) (0.1 - 0.8 x10 3/uL) 0.85 H Eos # (Auto) (0.0 - 0.2 x10 3/uL) 0.43 H Baso # (Auto) (0.0 - 0.2 x10 3/uL) 0.04 Abs Immat Gran (auto) (0.00 - 0.03 x10 3/uL) 0.05 H Add Manual Diff NO Immature Gran % (0.0 - 2.0 %) 0.5 Nucleated RBC % (0 - 0 %) 0.0 Nucleated RBCs # (Man) (0.0 - 0.1 x10 3/uL) 0.00 Retic Count (auto) (0.3 - 2.3 %) 1.3 Laboratory Tests 09/08 1045 Toxicology Random Vancomycin (mcg/mL) 15.8 Laboratory Tests 09/09 0500 Chemistry Magnesium (1.80 - 2.40 mg/dL) 1.89 Diagnosis, Assessment PlanConsultants: cardiology, endocrinology, hospitalist, infectious disease, podiatry Free Text DxA P NotesFree Text DxA P Notes:Impression: 1. Debility2. Infected right foot status post BKA3. Bacteremia4. Diabetes5. Hypertension 6. Anemia 07/2022: Echocardiogram with normal LVEF, grade 1 diastolic dysfunction, mildly dilated LA, and no significant valvular abnormalities Recommendation: Patient initially presented with DKA and sepsis. Diagnosed with right foot infection, underwent I D, now status post BKA. Patient had persistent bacteremia with MRSA, underwent JIMENA with negative findings of endocarditis. Patient now transferred to rehab for physical therapy. Known cardiac history ofhypertension and hyperlipidemia. Vital signs stable. Echocardiogram with normal LVEF, grade 1 diastolic dysfunction, mildly dilated LA, and no significant valvular abnormalities. Continue to monitor blood pressure trend. Continue wound care and IV antibiotic therapy. Continue PT/OT. Supportive care. 09/04: Patient complaining of shortness of breath, abdominal distention and lowerextremity edema. Renal function and electrolytes stable. Will give one-time dose of IV Lasix 40 mg. Blood pressure stable. Pending abdominal x-ray. Monitor intake and output. Check BMP in the morning. Supportive care. Plan ofcare discussed with patient, RN and Dr. Parham. 09/05: Patient responded well to IV Lasix, good urine output and improvement in shortness of breath. Chest x-ray ordered. Currently on Lasix 20 mg p.o. daily. Continue monitor renal function and electrolytes. Pending lower extremity Doppler for lower extremity edema. Continue PT/OT. Supportive care. Plan of care discussed with patient, RN and Dr. Parham. 09/08: Blood pressure has been elevated, started on Coreg 3.125 mg twice daily. Continue monitor blood pressure trend and adjust medication as needed. Still having left lower extremity edema, venous Doppler negative for DVT. continue gentle diuresis with Lasix 20 mg p.o. daily. Recommend Joan wrap. Patient remains anemic, plan for EGD/colonoscopy today. Supportive care. Plan of care discussed with patient, family, RN and Dr. Parham. 09/09: Patient doing well status post EGD/colonoscopy, negative findings for GI bleed. Blood pressure improving, increased on Coreg to 12.5 mg twice daily. Elevated creatinine noted, nephrology following. No new cardiac complaint. Continue wound care. Continue PT/OT. Supportive care. Plan of care discussed with patient, RN and Dr. Parham. Napoleon Parham 09/09/22 2223:Diagnosis, Assessment PlanAdditional comments:Patient was seen and examined at bedside, agree with above assessment and plan as documented by nurse practitioner with modifications. Patient continued to have left lower extremity edema and bilateral pulmonary rales. Continue with diuresis. Monitor I's and O's. We will follow. at 1704 at 2224 [facility] #:[id number] OF REPORTPRProgress [id number]:56:00G.[id number] able for patient [id number]:04:35 [facility] 2022-09-09 09:38:00 [id number]+[id number] d2WWSDzwot+xH4ZiqrXQIhw9Yn99108-38-54Z73:38:00 [facility] ([facility])Hospitalist Progress NoteREPORT#:[id number] REPORT STATUS: SignedDATE:09/09/22 TIME: 937 PATIENT: KARMA ROWLAND UNIT #: [id number]#: [id number] [address] [birth year] AGE: 56 SEX: M ATTEND: Mj Vences [facility] AUTHOR: Wilbert Ramires MD * ALL edits or amendments must be made on the electronic/computer document * SubjectiveChief complaint:admitted to rehab. participating with therapy Review of SystemsAll systems rev neg: except as noted Objective GeneralVS/I O:Vital Signs: Date Time Temp Pulse Resp B/P B/P Pulse O2 O2 Flow FiO2 Mean Ox Delivery Rate 09/09 0709 [...] Output, Urine 850 PATIENT WEIGHT: Weight (lb): 165Weight (oz): 5.55Weight (kg): 75.000 Medications:Active Meds + DC'd Last 24 HrsFerric Sodium Gluconate Complex (FERRLECIT) 125 MG DAILY IV Sodium Chloride (SODIUM CHLORIDE 0.9%) 100 MLFolic Acid (FOLIC ACID) 2 MG DAILY PO Multivitamins (TAB-A-MOHAN) 1 TAB DAILY PO Carvedilol (COREG) 12.5 MG C BK DIN PO Magnesium Sulfate (MAGNESIUM SULFATE 2GM/SWFI 50ML) 50 ML ONCE ONE IV (DC) Hydromorphone HCl (DILAUDID) 0.5 MG Q6H PRN PRN IV Vancomycin HCl (VANCOMYCIN HCL) 500 MG Q24H IV Sodium Chloride (SODIUM CHLORIDE 0.9% 100 ML) 100 MLPropofol (DIPRIVAN 200MG/20ML INJECTION) 20 ML .STK-MED ONE IV (DC) Fentanyl Citrate (SUBLIMAZE) 0 .STK-MED ONE .ROUTE (DC) Propofol (DIPRIVAN 200MG/20ML INJECTION) 20 ML .STK-MED ONE IV (DC) Lidocaine HCl (XYLOCAINE) 0 .STK-MED ONE .ROUTE (DC) Fentanyl Citrate (SUBLIMAZE) 100 MCG PACU Q10MIN PRN PRN IV (DC) Fentanyl Citrate (SUBLIMAZE) 50 MCG PACU Q10MIN PRN PRN IV (DC) Hydralazine HCl (APRESOLINE) 2 MG PACU Q10MIN PRN PRN IV (DC) Insulin Human Lispro (HUMALOG) 0 PACU ONCE PRN SUBQ (DC) Labetalol HCl (LABETALOL HCL) 5 MG PACU Q10MIN PRN PRN IV (DC) Ondansetron HCl (ZOFRAN) 4 MG PACU ONCE PRN IV (DC) Carvedilol (COREG) 3.125 MG C BK DIN PO (DC) Insulin Glargine (Lantus/Semglee) 5 UNIT BEDTIME SUBQ Furosemide (LASIX 20MG INJ) 20 MG BLOOD-DOSE BETWEEN IV (CKD) Sodium Chloride (SODIUM CHLORIDE) 10 ML ASDIR IV Furosemide (LASIX) 20 MG DAILY PO Pantoprazole Sodium (PROTONIX) 40 MG Q12HR IV Polyethylene Glycol (MIRALAX) 17 GM DAILY PO Sennosides (Senna Lax 8.6 MG TABLET) 8.6 MG DAILY PO Sodium Chloride (SODIUM CHLORIDE) 10 ML ASDIR PRN IV Amitriptyline HCl (ELAVIL) 25 MG BEDTIME PO Mupirocin (BACTROBAN 2% 22 GM OINTMENT) 1 APPLIC BID NASAL (DC) Zinc Oxide (ZINC OXIDE 30 GM OINTMENT) 1 APPLIC DAILY TOPICAL Sterile Water (WATER FOR IRRIGATION) DRESSING CHANGE ASDIR PRN IRR Insulin Human Lispro (HUMALOG) 0 AC HS SUBQ Dextrose/Water (DEXTROSE 10% IN WATER) 125 ML ASDIR PRN IV (CKD) Dextrose/Water (DEXTROSE 10% IN WATER) 250 ML ASDIR PRN IV (CKD) Glucagon (GLUCAGON) 1 MG ASDIR PRN IM Hydrocodone Bitart/Acetaminophen (NORCO 10/325) 1 TAB Q4H PRN PRN PO Hydromorphone HCl (DILAUDID) 1 MG Q6H PRN PRN IV (DC) Lidocaine (LIDODERM) 1 PATCH DAILY TOPICAL Insulin Human Lispro (HUMALOG) 5 UNIT AC SUBQ Miscellaneous Information (VANCOMYCIN PHARMACY TO DOSE) 1 EACH ASDIR IV (CKD) Heparin Sodium (HEPARIN 5000 UNITS/ML) 5,000 UNIT Q8HR SUBQ (r) Cefepime HCl (MAXIPIME) 1 GM Q6H IV Sodium Chloride (SODIUM CHLORIDE) 10 MLAcetaminophen (TYLENOL) 650 MG Q6H PRN PRN PO Bisacodyl (DULCOLAX) 10 MG DAILY PRN PRN RECTAL Docusate Sodium (COLACE) 100 MG Q12H PRN PRN PO Hydralazine HCl (APRESOLINE) 10 MG Q6H PRN PRN IV Ondansetron HCl (ZOFRAN) 4 MG Q6H PRN PRN IV Physical ExamGeneral appearance: alert, awake, orientedHead/Eyes: atraumatic, clear corneaNeck: full range of motion, non-tenderCardiovascular: normal capillary refill, normal heart sounds, regular rate rhythmRespiratory: aerating well, clear to auscultationAbdomen: non-tender, normal bowel soundsGenitourinary: no flank painExtremities: moves all, normal capillary refillMusculoskeletal: normal inspection, painless range of motionNeuro/DIRECTOR OPERATING ROOM: alert, oriented X 3, 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 Considered stroke alert: noSkin: dry, intactPsychiatry: normal affect, normal judgment/insight ResultsFindings/Data:Laboratory Tests 09/09 09/09 09/08 09/08 09/08 0524 0500 1955 1828 1611Chemistry Sodium (134 - 147 mEq/L) 136 Potassium [...] 700.5 H Lactate Dehydrogenase (87 - 241 193IUnits/L) 09/08 09/08 1318 1033 Chemistry POC Glucose [...] % (Auto) (14.0 - 32.0 %) 16.1 Lenoir % (Auto) (4.8 - 9.0 %) 9.2 H Eos % (Auto) (0.3 - 3.7 %) 4.7 H Baso % (Auto) (0.0 - 2.0 %) 0.4 Neut # (Auto) (2.0 - 7.6 x10 3/uL) 6.38 Lymph # (Auto) (1.0 - 3.8 x10 3/uL) 1.49 [place] # (Auto) (0.1 - 0.8 x10 3/uL) 0.85 H Eos # (Auto) (0.0 - 0.2 x10 3/uL) 0.43 H Baso # (Auto) (0.0 - 0.2 x10 3/uL) 0.04 Abs Immat Gran (auto) (0.00 - 0.03 x10 3/uL) 0.05 H Add Manual Diff NO Immature Gran % (0.0 - 2.0 %) 0.5 Nucleated RBC % (0 - 0 %) 0.0 Nucleated RBCs # (Man) (0.0 - 0.1 x10 3/uL) 0.00 Retic Count (auto) (0.3 - 2.3 %) 1.3 Laboratory Tests 09/08 1045 Toxicology Random Vancomycin (mcg/mL) 15.8 Diagnosis, Assessment PlanConsultants: cardiology, endocrinology, hospitalist, infectious disease, podiatry Free Text DxA P NotesFree text DxA P notes:Gangrene of right foot s/p Below- knee amputation Prostate abscessMRSA bacteremiaHx of Diabetes, Diabetic neuropathyHTN PLANS: Continue with ABx as dierected- currently on Daptomycin and CefepimeContinue with PT/OT per primary Fall precautionsNutritional supportpain controlfall precautionsbowel regimenWound care as directedHepain PPXContinue with supportive / care follow hgb closely and transfuse as neededblood sugars dipping down - endo followingBP improving. continue current BP meds and adjust as neededlabs noted. watch HgbIV iron at 1130 RPT #:[id number] OF REPORTPRProgress [id number]:38:00G.[id number] able for patient lvbmJPKOQFULQGVDMT0949-73-16U90:30:49 [facility] 2022-09-09 05:32:00 [id number] AWQK7dHdNskNeMuTI9B+/[id number]:32:00 [facility] ([facility])Pain Management Progress NoteREPORT#:[id number] REPORT STATUS: SignedDATE:09/09/22 TIME: 531 PATIENT: KARMA ROWLAND UNIT #: [id number]#: [id number] [address] [birth year] AGE: 56 SEX: M ATTEND: Mj Vences [facility] AUTHOR: Charlie Quiroga RESEARCH MANUFACTURING OPERATOR * ALL edits or amendments must be made on the electronic/computer document * Charlie Quiroga 09/09/22 0532:SubjectiveChief complaint:Patient seen and examined. Chart/MAR reviewed. Patient is doing well so far today. Pain tolerable last night. Medications effective when taken. Patient being seen for Acute postoperative pain, right foot and anklegangrene, requiring BKA, Constipation Patient is still requiring medications to help with managing currentproblems. Patient is requiring IV narcotics to help manage breakthrough pain No fever/chills, chest pain, orthopnea, nausea/vomiting, pruritus, orhallucinations.14 point ROS undertaken unremarkable except as noted Objective GeneralVS/I O:Vital SignsDate Temp Pulse Resp B/P B/P Mean Pulse Ox RdS850/-09/09 97.7-98.2 80-92 10-20 131-170/64-86 87.1-106.2 95-99 Last Documented: Result Date Time Pulse Ox 96 09/09 0021 B/P 133/64 09/09 0021 B/P Mean 87.1 09/09 0021 Temp 97.7 09/09 0021 Pulse 87 09/09 0021 Resp 16 09/09 0021 O2 Delivery Room air 09/08 1345 O2 Flow Rate 2 04/17 1322 24 hour I O ending at 0700: 09/09 0700 09/08 1900 Intake Total 250.00 Output Total 850 Balance -850 250.00 Intake, IV 250.00 Number 1 Bowel Movements Number 0 Incontinent Voids Number Voids 0 Output, Urine 850 PATIENT WEIGHT: Weight (lb): 165Weight (oz): 5.55Weight (kg): 75.000 Medications:Active Meds + DC'd Last 24 HrsCarvedilol (COREG) 12.5 MG C BK DIN PO Magnesium Sulfate (MAGNESIUM SULFATE 2GM/SWFI 50ML) 50 ML ONCE ONE IV (DC) Hydromorphone HCl (DILAUDID) 0.5 MG Q6H PRN PRN IV Vancomycin HCl (VANCOMYCIN HCL) 500 MG Q24H IV Sodium Chloride (SODIUM CHLORIDE 0.9% 100 ML) 100 MLPropofol (DIPRIVAN 200MG/20ML INJECTION) 20 ML .STK-MED ONE IV (DC) Fentanyl Citrate (SUBLIMAZE) 0 .STK-MED ONE .ROUTE (DC) Propofol (DIPRIVAN 200MG/20ML INJECTION) 20 ML .STK-MED ONE IV (DC) Lidocaine HCl (XYLOCAINE) 0 .STK-MED ONE .ROUTE (DC) Fentanyl Citrate (SUBLIMAZE) 100 MCG PACU Q10MIN PRN PRN IV (DC) Fentanyl Citrate (SUBLIMAZE) 50 MCG PACU Q10MIN PRN PRN IV (DC) Hydralazine HCl (APRESOLINE) 2 MG PACU Q10MIN PRN PRN IV (DC) Insulin Human Lispro (HUMALOG) 0 PACU ONCE PRN SUBQ (DC) Labetalol HCl (LABETALOL HCL) 5 MG PACU Q10MIN PRN PRN IV (DC) Ondansetron HCl (ZOFRAN) 4 MG PACU ONCE PRN IV (DC) Carvedilol (COREG) 3.125 MG C BK DIN PO (DC) Polyethylene Glycol/Electrolytes (GOLYTELY) 2,000 ML ONCE ONE PO (DC) Insulin Glargine (Lantus/Semglee) 5 UNIT BEDTIME SUBQ Furosemide (LASIX 20MG INJ) 20 MG BLOOD-DOSE BETWEEN IV (CKD) Sodium Chloride (SODIUM CHLORIDE) 10 ML ASDIR IV Furosemide (LASIX) 20 MG DAILY PO Pantoprazole Sodium (PROTONIX) 40 MG Q12HR IV Polyethylene Glycol (MIRALAX) 17 GM DAILY PO Sennosides (Senna Lax 8.6 MG TABLET) 8.6 MG DAILY PO Sodium Chloride (SODIUM CHLORIDE) 10 ML ASDIR PRN IV Amitriptyline HCl (ELAVIL) 25 MG BEDTIME PO Mupirocin (BACTROBAN 2% 22 GM OINTMENT) 1 APPLIC BID NASAL Zinc Oxide (ZINC OXIDE 30 GM OINTMENT) 1 APPLIC DAILY TOPICAL Sterile Water (WATER FOR IRRIGATION) DRESSING CHANGE ASDIR PRN IRR Insulin Human Lispro (HUMALOG) 0 AC HS SUBQ Dextrose/Water (DEXTROSE 10% IN WATER) 125 ML ASDIR PRN IV (CKD) Dextrose/Water (DEXTROSE 10% IN WATER) 250 ML ASDIR PRN IV (CKD) Glucagon (GLUCAGON) 1 MG ASDIR PRN IM Hydrocodone Bitart/Acetaminophen (NORCO 10/325) 1 TAB Q4H PRN PRN PO Hydromorphone HCl (DILAUDID) 1 MG Q6H PRN PRN IV (DC) Lidocaine (LIDODERM) 1 PATCH DAILY TOPICAL Insulin Human Lispro (HUMALOG) 5 UNIT AC SUBQ Miscellaneous Information (VANCOMYCIN PHARMACY TO DOSE) 1 EACH ASDIR IV (CKD) Heparin Sodium (HEPARIN 5000 UNITS/ML) 5,000 UNIT Q8HR SUBQ (DA) Cefepime HCl (MAXIPIME) 1 GM Q6H IV Sodium Chloride (SODIUM CHLORIDE) 10 MLAcetaminophen (TYLENOL) 650 MG Q6H PRN PRN PO Bisacodyl (DULCOLAX) 10 MG DAILY PRN PRN RECTAL Docusate Sodium (COLACE) 100 MG Q12H PRN PRN PO Hydralazine HCl (APRESOLINE) 10 MG Q6H PRN PRN IV Ondansetron HCl (ZOFRAN) 4 MG Q6H PRN PRN IV Physical ExamGeneral appearance: alert, awake, oriented, no acute distressHead/eyes: atraumatic, EOMI, normocephalic, normal conjunctiva/sclera, PERRLAENT: normal ear left, normal ear right, normal nose, normal pharynx, moist mucosal membranesNeck: full range of motion, no lymphadenopathy, supple/no meningismusCardiovascular: regular rate rhythmRespiratory: clear to auscultation, no distress, aerating wellAbdomen: soft, non-tender, no distention, active bowel sounds in all quarants. Abdomen quadrantsLLQ normal bowel sounds, LUQ normal bowel sounds, RLQ normal bowel sounds, RUQ normal bowel soundsExtremities: moves all, no edema, pedal pulsesNeuro/DIRECTOR OPERATING ROOM: 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, no sensory deficits, CNII-XII grossly intact Considered stroke alert: noSkin: dry, normal colorPsychiatry: normal affect ResultsFindings/data:Laboratory Tests: 09/08 1828 1611 1318 1045Chemistry POC Glucose (70 - 110 MG/DL) 106 120 H 101 Iron (35 - 150 mcg/dL) 10 L TIBC (260 - 445 mcg/dL) 138 L % Saturation (14 - 34 %) 7.2 L Unsat Iron Binding (mcg/dL) 128 Ferritin (23.9 - 336.2 ng/mL) 700.5 H Lactate Dehydrogenase (87 - 241 193IUnits/L)Hematology Retic Count (auto) (0.3 - 2.3 %) 1.3Toxicology Random Vancomycin (mcg/mL) 15.8 09/08 09/08 09/08 [...] (Auto) (14.0 - 32.0 %) 13.7 L Lenoir % (Auto) (4.8 - 9.0 %) 7.2 Eos % (Auto) (0.3 - 3.7 %) 4.8 H Baso % (Auto) (0.0 - 2.0 %) 0.3 Neut # (Auto) (2.0 - 7.6 x10 3/uL) 6.64 Lymph # (Auto) (1.0 - 3.8 x10 3/uL) 1.24 [place] # (Auto) (0.1 - 0.8 x10 3/uL) 0.65 Eos # (Auto) (0.0 - 0.2 x10 3/uL) 0.43 H Baso # (Auto) (0.0 - 0.2 x10 3/uL) 0.03 Abs Immat Gran (auto) (0.00 - 0.03 x10 3/uL) 0.06 H Add Manual Diff NO Immature Gran % (0.0 - 2.0 %) 0.7 Nucleated RBC % (0 - 0 %) 0.0 Nucleated RBCs # (Man) (0.0 - 0.1 x10 3/uL) 0.00 Diagnosis, Assessment PlanFree text A P:A/P:Patient is a 56 year old male who presents with: Recent prostate abscess-Status post TURP with unroofing of abscess-IV antibiotics with vancomycin until 09-24-2022 Acute postoperative pain, right foot and ankle gangrene, requiring BKA-Patient is at risk for further amputations or loss of limb due to comorbid conditions-Status post right BKA 08/28/2022-Tylenol 650 mg p.o. every 6 hours as needed pain scale 1 3-Sheldon 10/325 1 tablet p.o. every 4 hours as needed pain scale 4 10-Dilaudid 0.5 mg IV every 6 hours as needed pain scale 7 10, second line therapy-patient will require close monitoring while using IV narcotics for any deleterious effect-Lidoderm patch to left ankle daily-IV antibiotics with vancomycin until 9-3-9062-Local wound care-manageable Diabetic peripheral neuropathy-patient is based on adrenal insufficiency-amitriptyline 25mg PO QHS-manageable Uncontrolled diabetes, diabetes with complications, recent DKA-Hemoglobin A1c 13.4-Recent right foot and ankle gangrene-Insulin sliding scale, FSBS, good glycemic control Hypertension-We will monitor hypertension and tachycardia due to pain, and hypotension as well as bradycardia secondary over sedation with narcotics-Hydralazine as needed Elevated LFTs-08/20/22-AST 51, ALT 22-09/03/2022-AST 15, ALT 7-Patient will require close monitoring since he is using narcotics with Tylenol Impaired functional mobility, balance, gait, and endurance-PT/OT Constipation-We will monitor while utilizing opioid narcotic medications.-Adequate fluid intake also discussed.-Colace 100 mg p.o. twice daily as needed-Dulcolax 10 mg rectally daily as needed-Senna lax 8.6mg daily-Miralax 17gm daily-manageable Disposition: Past Medical History: Prostate abscess, right foot foot and ankle gangrene, diabetes, hypertension, hyperlipidemiaPast Surgical History: TURP, right BKAFamily History: NoncontributorySocial History: Denies tobacco, alcohol, or drug useAllergies: NKDA Patient has failed conservative medical therapy.Patient will require monitoring while utilize narcotic medications for any adverse effects, and will adjust as neededPlan of care discussed with patient and nurseAll diagnostics of last 24 hours been reviewed. Risks versus benefits of opioid medications were reviewed to include, but not limited to respiratory depression, accidental overdose, altered mental status, sudden , constipation which could result in bowel obstruction, seizures, withdrawal, dependency addiction, risk for falls. Case discussed with Dr Ng whom agrees. Thank you for the consultation. [place] DISABILITY HEARING OFFICER:-database searched, no information found Kingsley Ng 09/28/22 1928:Attestations Physician AttestationAgree w/findings plan:The patient was seen and examined by Charlie Quiroga. I personally developed thecare plan, which was continued by the mid-level provider. I was immediately available. at 1617 at 1929 RPT #:[id number] OF REPORTPRProgress [id number]:32:00G.[id number] able for patient [id number]:18:06 [facility] 2022-09-08 20:33:00 [id number]/dq1zjQVw l+[id number]+[id number]:33:00 [facility])Podiatry Progress NoteREPORT#:[id number] REPORT STATUS: SignedDATE:09/08/22 TIME: 2032 PATIENT: KARMA ROWLAND UNIT #: [id number]#: [id number] [address] [birth year] AGE: 56 SEX: M ATTEND: Mj Vences [facility] AUTHOR: Liam Pedersen DPJude * ALL edits or amendments must be made on the electronic/computer document * SubjectiveChief complaint:left heel ulcer. left ankle painPatient reports: no confusion, no diarrhea, no headache, no itching, no nauseaComments:keeps joan wraps on even when sleeping.i advised him against it. pt seen early this am. with him but she' s asleep.so history only from pt and staff. events noted. has been happy with his progress with therapy. Objective GeneralVS:Last Documented: Result Date Time Pulse Ox 96 09/09 2003 B/P 150/73 09/09 2003 B/P Mean 98.9 09/09 2003 Temp 36.6 09/09 2003 Pulse 91 09/09 2003 Resp 15 09/09 2003 O2 Delivery Room air 09/08 1345 O2 Flow Rate 2 09/08 1322 PATIENT WEIGHT: Weight (lb): 165Weight (oz): 5.55Weight (kg): 75.000 Medications:Active Meds + DC'd Last 24 HrsCarvedilol (COREG) 12.5 MG C BK DIN PO Magnesium Sulfate (MAGNESIUM SULFATE 2GM/SWFI 50ML) 50 ML ONCE ONE IV (DC) Hydromorphone HCl (DILAUDID) 0.5 MG Q6H PRN PRN IV Vancomycin HCl (VANCOMYCIN HCL) 500 MG Q24H IV Sodium Chloride (SODIUM CHLORIDE 0.9% 100 ML) 100 MLPropofol (DIPRIVAN 200MG/20ML INJECTION) 20 ML .STK-MED ONE IV (DC) Fentanyl Citrate (SUBLIMAZE) 0 .STK-MED ONE .ROUTE (DC) Propofol (DIPRIVAN 200MG/20ML INJECTION) 20 ML .STK-MED ONE IV (DC) Lidocaine HCl (XYLOCAINE) 0 .STK-MED ONE .ROUTE (DC) Fentanyl Citrate (SUBLIMAZE) 100 MCG PACU Q10MIN PRN PRN IV (DC) Fentanyl Citrate (SUBLIMAZE) 50 MCG PACU Q10MIN PRN PRN IV (DC) Hydralazine HCl (APRESOLINE) 2 MG PACU Q10MIN PRN PRN IV (DC) Insulin Human Lispro (HUMALOG) 0 PACU ONCE PRN SUBQ (DC) Labetalol HCl (LABETALOL HCL) 5 MG PACU Q10MIN PRN PRN IV (DC) Ondansetron HCl (ZOFRAN) 4 MG PACU ONCE PRN IV (DC) Carvedilol (COREG) 3.125 MG C BK DIN PO (DC) Polyethylene Glycol/Electrolytes (GOLYTELY) 2,000 ML ONCE ONE PO (DC) Insulin Glargine (Lantus/Semglee) 5 UNIT BEDTIME SUBQ Furosemide (LASIX 20MG INJ) 20 MG BLOOD-DOSE BETWEEN IV (CKD) Sodium Chloride (SODIUM CHLORIDE) 10 ML ASDIR IV Furosemide (LASIX) 20 MG DAILY PO Pantoprazole Sodium (PROTONIX) 40 MG Q12HR IV Polyethylene Glycol (MIRALAX) 17 GM DAILY PO Sennosides (Senna Lax 8.6 MG TABLET) 8.6 MG DAILY PO Sodium Chloride (SODIUM CHLORIDE) 10 ML ASDIR PRN IV Amitriptyline HCl (ELAVIL) 25 MG BEDTIME PO Mupirocin (BACTROBAN 2% 22 GM OINTMENT) 1 APPLIC BID NASAL Zinc Oxide (ZINC OXIDE 30 GM OINTMENT) 1 APPLIC DAILY TOPICAL Sterile Water (WATER FOR IRRIGATION) DRESSING CHANGE ASDIR PRN IRR Insulin Human Lispro (HUMALOG) 0 AC HS SUBQ Dextrose/Water (DEXTROSE 10% IN WATER) 125 ML ASDIR PRN IV (CKD) Dextrose/Water (DEXTROSE 10% IN WATER) 250 ML ASDIR PRN IV (CKD) Glucagon (GLUCAGON) 1 MG ASDIR PRN IM Hydrocodone Bitart/Acetaminophen (NORCO 10/325) 1 TAB Q4H PRN PRN PO Hydromorphone HCl (DILAUDID) 1 MG Q6H PRN PRN IV (DC) Lidocaine (LIDODERM) 1 PATCH DAILY TOPICAL Insulin Human Lispro (HUMALOG) 5 UNIT AC SUBQ Miscellaneous Information (VANCOMYCIN PHARMACY TO DOSE) 1 EACH ASDIR IV (CKD) Heparin Sodium (HEPARIN 5000 UNITS/ML) 5,000 UNIT Q8HR SUBQ (DA) Cefepime HCl (MAXIPIME) 1 GM Q6H IV Sodium Chloride (SODIUM CHLORIDE) 10 MLAcetaminophen (TYLENOL) 650 MG Q6H PRN PRN PO Bisacodyl (DULCOLAX) 10 MG DAILY PRN PRN RECTAL Docusate Sodium (COLACE) 100 MG Q12H PRN PRN PO Hydralazine HCl (APRESOLINE) 10 MG Q6H PRN PRN IV Ondansetron HCl (ZOFRAN) 4 MG Q6H PRN PRN IV I O:24 hour I O ending at 0700: 17 0700 04/ 1900 Intake Total 2000 Output Total 600 Balance 1400 Intake, Oral 2000 Number 2 Bowel Movements Number 0 Incontinent Voids Number Voids 0 Output, Urine 600 Dietitian nutrition assessmentThe data set between the solid lines has been imported from the dietitian's assessment. BMI Calculated: 26.7Nutrition related diagnosis: Nutrition diagnosis details: Nutrition problem: Altered nutrition labsNutrition etiology: DMNutrition signs and symptoms: HYPER/HYPOGLYCEMIA, A1C >14Nutrition prescription: CONTINUE DM DIETDietitian name: Klaus Kaiser, DIETAssessment completed: 09/03/22 Physical ExamGeneral appearance: alert, awake, oriented, pleasant, conversational, mental status normalWound/incision: Location:left foot Site condition: dp/pt 2/4 left. light touch decreased left foot. ulcer starting at posterior left heel. eccymosis noted. early likely stage 1. left ankle has edema. pain with aggressive ROM left ankle.LE vascular pulse assess:2+ L posterior tibialis, 2+ L dorsalis pedis Considered stroke alert: noUlcer: Location: DTI dorsal left midfoot ResultsFindings/Data:Laboratory Tests: 09/08 09/08 09/08 09/08 09/08 1955 1828 1611 1318 1045Chemistry POC Glucose (70 - 110 MG/DL) 106 120 H 101 Iron (35 - 150 mcg/dL) 10 L TIBC (260 - 445 mcg/dL) 138 L % Saturation (14 - 34 %) 7.2 L Unsat Iron Binding (mcg/dL) 128 Ferritin (23.9 - 336.2 ng/mL) 700.5 H Lactate Dehydrogenase (87 - 241 193IUnits/L)Hematology Retic Count (auto) (0.3 - 2.3 %) 1.3Toxicology Random Vancomycin (mcg/mL) 15.8 09/08 09/08 09/08 [...] (Auto) (14.0 - 32.0 %) 13.7 L Len[place] % (Auto) (4.8 - 9.0 %) 7.2 Eos % (Auto) (0.3 - 3.7 %) 4.8 H Baso % (Auto) (0.0 - 2.0 %) 0.3 Neut # (Auto) (2.0 - 7.6 x10 3/uL) 6.64 Lymph # (Auto) (1.0 - 3.8 x10 3/uL) 1.24 Lenoir # (Auto) (0.1 - 0.8 x10 3/uL) 0.65 Eos # (Auto) (0.0 - 0.2 x10 3/uL) 0.43 H Baso # (Auto) (0.0 - 0.2 x10 3/uL) 0.03 Abs Immat Gran (auto) (0.00 - 0.03 x10 3/uL) 0.06 H Add Manual Diff NO Immature Gran % (0.0 - 2.0 %) 0.7 Nucleated RBC % (0 - 0 %) 0.0 Nucleated RBCs # (Man) (0.0 - 0.1 x10 3/uL) 0.00 09/07 2110 Chemistry POC Glucose (70 - 110 MG/DL) 127 H Diagnosis, Assessment PlanFree Text A P:DM with neuropathyearly decub ulcer left heelOA/edema left ankleDTI dorsal left midfoot zinc oxide to foot and heelfoam to heelon IV abxoffloading bootace wraps to ankle, only when OOB with therapy. Consultants: cardiology, endocrinology, hospitalist, infectious disease, podiatry at 2035 RPT #:[id number] OF REPORTPRProgress wbvo7707-76-79I36:33:00G.UNHL78596771-9588SZFmotp able for patient bojdODZNFQAJIDFYKL9090-70-97O77:36:11 [facility] 2022-09-08 17:06:00 [id number] e0373+ffEKPmL8E9w4XyYZv86Glk7 67yQKIQ+A5pzlt1adrnv37TzQkv2809-15-80I91:06:00 [facility])Nephrology Consultation NoteREPORT#:[id number] REPORT STATUS: SignedDATE:09/08/22 TIME: 1706 PATIENT: KARMA ROWLAND UNIT #: [id number]#: [id number] [address] AGE: 56 SEX: M ATTEND: Mj Vences MDADM AUTHOR: Barrera Ramírez MD * ALL edits or amendments must be made on the electronic/computer document * History of Present IllnessRequesting clinician: David Vences for consult:Elevated creatinine/?Anemia due to decreased GFRChief complaint:Infected footHPI:Patient seen and evaluated on 09/09/2022, note started, records reviewed and orders placed on 09/08/2022, 56-year-old male with history of diabetes mellitus type 2, hypertension and peripheral vascular disease who was initially admitted to acute care with altered mental status and right foot infection/gangrene, 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 Patient had persistent anemia requiring blood transfusion. His fecal occult blood was positive and his creatinine was 1.2 and increased to 1.4 today, laboratories today showed hemoglobin 8.5, platelet 231, blood count 9.1, sodium 135, potassium 4.6, CO2 22, BUN 22, creatinine 1.4. Renal consult was requested for evaluation management of elevated BUN and creatinine and if his decreased GFR iscontributing to his anemia. History - Adult longitudinalAdditional medical history:DM 2 since age 33 DM neuropathy HTN hyperlipidemiaAdditional surgical history:as aboveAdditional family history:reviewed and non contributoryAlcohol use: Denies EtOH useDrug use: Denies recreational drugsSmoking status for patients 13 years old or older: Never SmokerOther social history: Local resident, Good social supportAllergies:Coded Allergies:No Known Allergies (03/23/11) Review of SystemsConstitutional:Reports: fatigue. Denies: chills, fever. Skin:Reports: swelling. Denies: rash. Allergy/Immun:Denies: hives, itching. Eyes:Denies: redness, discharge. ENT:Denies: ear drainage, ear ringing. Respiratory:Denies: hemoptysis, SOB. Cardiovascular:Denies: chest pain. GI:Denies: abdominal pain, nausea, vomiting. :Denies: dysuria, flank pain. Musculoskeletal:Reports: extremity pain. Denies: arthritis. Heme:Denies: bleeding, bruising. Endocrine:Denies: cold intolerance, heat intolerance. Neuro:Denies: change in LOC, seizure. Psych:Denies: agitation, anxiety. Objective GeneralVS/I O:Vital Signs: Date Time Temp Pulse Resp B/P B/P Pulse O2 O2 Flow FiO2 Mean Ox Delivery Rate 09/08 1632 [...] Output, Urine 600 PATIENT WEIGHT: Weight (lb): 165Weight (oz): 5.55Weight (kg): 75.000 Medications:Active Meds + DC'd Last 24 HrsHydromorphone HCl (DILAUDID) 0.5 MG Q6H PRN PRN IV Vancomycin HCl (VANCOMYCIN HCL) 500 MG Q24H IV Sodium Chloride (SODIUM CHLORIDE 0.9% 100 ML) 100 MLPropofol (DIPRIVAN 200MG/20ML INJECTION) 20 ML .STK-MED ONE IV (DC) Fentanyl Citrate (SUBLIMAZE) 0 .STK-MED ONE .ROUTE (DC) Propofol (DIPRIVAN 200MG/20ML INJECTION) 20 ML .STK-MED ONE IV (DC) Lidocaine HCl (XYLOCAINE) 0 .STK-MED ONE .ROUTE (DC) Fentanyl Citrate (SUBLIMAZE) 100 MCG PACU Q10MIN PRN PRN IV (DC) Fentanyl Citrate (SUBLIMAZE) 50 MCG PACU Q10MIN PRN PRN IV (DC) Hydralazine HCl (APRESOLINE) 2 MG PACU Q10MIN PRN PRN IV (DC) Insulin Human Lispro (HUMALOG) 0 PACU ONCE PRN SUBQ (DC) Labetalol HCl (LABETALOL HCL) 5 MG PACU Q10MIN PRN PRN IV (DC) Ondansetron HCl (ZOFRAN) 4 MG PACU ONCE PRN IV (DC) Carvedilol (COREG) 3.125 MG C BK DIN PO Polyethylene Glycol/Electrolytes (GOLYTELY) 2,000 ML ONCE ONE PO (DC) Insulin Glargine (Lantus/Semglee) 5 UNIT BEDTIME SUBQ Polyethylene Glycol/Electrolytes (GOLYTELY) 2,000 ML ONCE ONE PO (DC) Furosemide (LASIX 20MG INJ) 20 MG BLOOD-DOSE BETWEEN IV (CKD) Sodium Chloride (SODIUM CHLORIDE) 10 ML ASDIR IV Furosemide (LASIX) 20 MG DAILY PO Pantoprazole Sodium (PROTONIX) 40 MG Q12HR IV Polyethylene Glycol (MIRALAX) 17 GM DAILY PO Sennosides (Senna Lax 8.6 MG TABLET) 8.6 MG DAILY PO Sodium Chloride (SODIUM CHLORIDE) 10 ML ASDIR PRN IV Amitriptyline HCl (ELAVIL) 25 MG BEDTIME PO Mupirocin (BACTROBAN 2% 22 GM OINTMENT) 1 APPLIC BID NASAL Zinc Oxide (ZINC OXIDE 30 GM OINTMENT) 1 APPLIC DAILY TOPICAL Sterile Water (WATER FOR IRRIGATION) DRESSING CHANGE ASDIR PRN IRR Insulin Human Lispro (HUMALOG) 0 AC HS SUBQ Dextrose/Water (DEXTROSE 10% IN WATER) 125 ML ASDIR PRN IV (CKD) Dextrose/Water (DEXTROSE 10% IN WATER) 250 ML ASDIR PRN IV (CKD) Glucagon (GLUCAGON) 1 MG ASDIR PRN IM Hydrocodone Bitart/Acetaminophen (NORCO 10/325) 1 TAB Q4H PRN PRN PO Hydromorphone HCl (DILAUDID) 1 MG Q6H PRN PRN IV (DC) Lidocaine (LIDODERM) 1 PATCH DAILY TOPICAL Insulin Human Lispro (HUMALOG) 5 UNIT AC SUBQ Miscellaneous Information (VANCOMYCIN PHARMACY TO DOSE) 1 EACH ASDIR IV (CKD) Heparin Sodium (HEPARIN 5000 UNITS/ML) 5,000 UNIT Q8HR SUBQ (DA) Cefepime HCl (MAXIPIME) 1 GM Q6H IV Sodium Chloride (SODIUM CHLORIDE) 10 MLAcetaminophen (TYLENOL) 650 MG Q6H PRN PRN PO Bisacodyl (DULCOLAX) 10 MG DAILY PRN PRN RECTAL Docusate Sodium (COLACE) 100 MG Q12H PRN PRN PO Hydralazine HCl (APRESOLINE) 10 MG Q6H PRN PRN IV Ondansetron HCl (ZOFRAN) 4 MG Q6H PRN PRN IV Physical ExamGeneral appearance: alert, no acute distressHead/eyes: atraumatic, normocephalicENT: normal noseNeck: non-tender, supple/no meningismusCardiovascular: normal heart sounds, no rubRespiratory: aerating well, symmetric expansionAbdomen: non-tender, softGenitourinary: no flank painExtremities: pitting edema, non-tenderMusculoskeletal: no CVA tenderness, no tendernessNeuro/DIRECTOR OPERATING ROOM: alert, 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 Considered stroke alert: noSkin: dry, intact ResultsFindings/Data:Laboratory Tests 09/08 09/08 09/08 09/08 09/08 1611 1318 1033 0616 0615Chemistry Sodium (134 - 147 mEq/L) 135 Potassium [...] Total Creatine Kinase (46 - 171 22 LUnits/L) Albumin (3.4 - 5.0 g/dL) 1.30 L [...] Laboratory Tests 09/08 09/07 09/06 0615 0510 0521 Hematology WBC (4.5 - 11.0 x10 3/uL) [...] (Auto) (14.0 - 32.0 %) 13.7 L Lenoir % (Auto) (4.8 - 9.0 %) 7.2 Eos % (Auto) (0.3 - 3.7 %) 4.8 H Baso % (Auto) (0.0 - 2.0 %) 0.3 Neut # (Auto) (2.0 - 7.6 x10 3/uL) 6.64 Lymph # (Auto) (1.0 - 3.8 x10 3/uL) 1.24 Lenoir # (Auto) (0.1 - 0.8 x10 3/uL) 0.65 Eos # (Auto) (0.0 - 0.2 x10 3/uL) 0.43 H Baso # (Auto) (0.0 - 0.2 x10 3/uL) 0.03 Abs Immat Gran (auto) (0.00 - 0.03 x10 3/uL) 0.06 H Add Manual Diff NO Immature Gran % (0.0 - 2.0 %) 0.7 Nucleated RBC % (0 - 0 %) 0.0 Nucleated RBCs # (Man) (0.0 - 0.1 x10 3/uL) 0.00 Laboratory Tests 09/08 09/07 09/06 1045 0510 1553 Toxicology Vancomycin Trough (10.0 - 20.0 mcg/mL) 18.9 Random Vancomycin (mcg/mL) 15.8 14.7 Laboratory Tests 09/08 09/08 09/08 09/08 09/08 1611 1318 1033 0616 0615Chemistry Sodium (134 - 147 mEq/L) 135 Potassium [...] Total Creatine Kinase (46 - 171 22 LUnits/L) Albumin (3.4 - 5.0 g/dL) 1.30 L Prealbumin (16.0 - 40.0 mg/dL) < 5.0 L 09/07 09/07 2238 2110 Chemistry POC Glucose (70 - 110 [...] (Auto) (14.0 - 32.0 %) 13.7 L Len[place] % (Auto) (4.8 - 9.0 %) 7.2 Eos % (Auto) (0.3 - 3.7 %) 4.8 H Baso % (Auto) (0.0 - 2.0 %) 0.3 Neut # (Auto) (2.0 - 7.6 x10 3/uL) 6.64 Lymph # (Auto) (1.0 - 3.8 x10 3/uL) 1.24 [place] # (Auto) (0.1 - 0.8 x10 3/uL) 0.65 Eos # (Auto) (0.0 - 0.2 x10 3/uL) 0.43 H Baso # (Auto) (0.0 - 0.2 x10 3/uL) 0.03 Abs Immat Gran (auto) (0.00 - 0.03 x10 3/uL) 0.06 H Add Manual Diff NO Immature Gran % (0.0 - 2.0 %) 0.7 Nucleated RBC % (0 - 0 %) 0.0 Nucleated RBCs # (Man) (0.0 - 0.1 x10 3/uL) 0.00 Laboratory Tests 09/08 1045 Toxicology Random Vancomycin (mcg/mL) 15.8 Diagnosis, Assessment PlanConsultants: cardiology, endocrinology, hospitalist, infectious disease, podiatry Free Text DxA P NotesFree text DxA P notes:Patient seen and evaluated, discussed with care team, images and laboratories reviewed.Diabetes mellitus: Insulin: Monitor blood sugar closely and adjust medications as needed, followed by endocrinology.Hypertension: Blood pressure is not well controlled, increase Coreg to 12.5 mg p.o. twice daily: Monitor blood pressure closely and adjust medications as neededRight foot gangrene/infection status post right BKAAnemia: Status post EGD and colonoscopy which were negative for active GI bleeding, patient had work-up in July 2022 which showed very high B12, normal folate, very low iron saturation but very high ferritin which was likely relatedto his infection, likely patient is very iron deficient, will repeat lab and give IV iron if needed. We will check serum immunofixation.Acute kidney injury: We will check renal bladder ultrasound, check postvoid residual, check urine protein creatinine ratioHypomagnesemia: We will supplement at 0939 RPT #:[id number] OF REPORTSOAfaljwtfvssx0861-87-51T55:06:00G.PDOC2 [id number] for patient swjkHUNYWHLOHWJRJS4984-25-32Y37:40:21 [facility] 2022-09-08 16:52:00 [id number] dNFt6sHBkEcWGvakhSnelg4QNRnoS yOAeqCZCBHm8vBzA/SkT394BsAt1772-11-66C77:52:00 [facility] ([facility])Endocrinology Progress NoteREPORT#:[id number] REPORT STATUS: SignedDATE:09/08/22 TIME: 1651 PATIENT: KARMA ROWLAND UNIT #: [id number]#: [id number] [address] [birth year] AGE: 56 SEX: M ATTEND: Mj Vences [facility] AUTHOR: Braxton Chapin MD * ALL edits or amendments must be made on the electronic/computer document * SubjectivePatient reports: no complaints Objective GeneralVS:Last Documented: Result Date Time Pulse Ox 98 09/08 1632 B/P 159/80 09/08 1632 B/P Mean 106.2 09/08 1632 Pulse 88 09/08 1632 O2 Delivery Room air 09/08 1345 Temp 36.8 09/08 1345 Resp 12 09/08 1345 O2 Flow Rate 2 09/08 1322 PATIENT WEIGHT: Weight (lb): 165Weight (oz): 5.55Weight (kg): 75.000 Medications:Active Meds + DC'd Last 24 HrsHydromorphone HCl (DILAUDID) 0.5 MG Q6H PRN PRN IV Vancomycin HCl (VANCOMYCIN HCL) 500 MG Q24H IV Sodium Chloride (SODIUM CHLORIDE 0.9% 100 ML) 100 MLPropofol (DIPRIVAN 200MG/20ML INJECTION) 20 ML .STK-MED ONE IV (DC) Fentanyl Citrate (SUBLIMAZE) 0 .STK-MED ONE .ROUTE (DC) Propofol (DIPRIVAN 200MG/20ML INJECTION) 20 ML .STK-MED ONE IV (DC) Lidocaine HCl (XYLOCAINE) 0 .STK-MED ONE .ROUTE (DC) Fentanyl Citrate (SUBLIMAZE) 100 MCG PACU Q10MIN PRN PRN IV (DC) Fentanyl Citrate (SUBLIMAZE) 50 MCG PACU Q10MIN PRN PRN IV (DC) Hydralazine HCl (APRESOLINE) 2 MG PACU Q10MIN PRN PRN IV (DC) Insulin Human Lispro (HUMALOG) 0 PACU ONCE PRN SUBQ (DC) Labetalol HCl (LABETALOL HCL) 5 MG PACU Q10MIN PRN PRN IV (DC) Ondansetron HCl (ZOFRAN) 4 MG PACU ONCE PRN IV (DC) Carvedilol (COREG) 3.125 MG C BK DIN PO Polyethylene Glycol/Electrolytes (GOLYTELY) 2,000 ML ONCE ONE PO (DC) Insulin Glargine (Lantus/Semglee) 5 UNIT BEDTIME SUBQ Polyethylene Glycol/Electrolytes (GOLYTELY) 2,000 ML ONCE ONE PO (DC) Furosemide (LASIX 20MG INJ) 20 MG BLOOD-DOSE BETWEEN IV (CKD) Sodium Chloride (SODIUM CHLORIDE) 10 ML ASDIR IV Furosemide (LASIX) 20 MG DAILY PO Pantoprazole Sodium (PROTONIX) 40 MG Q12HR IV Polyethylene Glycol (MIRALAX) 17 GM DAILY PO Sennosides (Senna Lax 8.6 MG TABLET) 8.6 MG DAILY PO Sodium Chloride (SODIUM CHLORIDE) 10 ML ASDIR PRN IV Amitriptyline HCl (ELAVIL) 25 MG BEDTIME PO Mupirocin (BACTROBAN 2% 22 GM OINTMENT) 1 APPLIC BID NASAL Zinc Oxide (ZINC OXIDE 30 GM OINTMENT) 1 APPLIC DAILY TOPICAL Sterile Water (WATER FOR IRRIGATION) DRESSING CHANGE ASDIR PRN IRR Insulin Human Lispro (HUMALOG) 0 AC HS SUBQ Dextrose/Water (DEXTROSE 10% IN WATER) 125 ML ASDIR PRN IV (CKD) Dextrose/Water (DEXTROSE 10% IN WATER) 250 ML ASDIR PRN IV (CKD) Glucagon (GLUCAGON) 1 MG ASDIR PRN IM Hydrocodone Bitart/Acetaminophen (NORCO 10/325) 1 TAB Q4H PRN PRN PO Hydromorphone HCl (DILAUDID) 1 MG Q6H PRN PRN IV (DC) Lidocaine (LIDODERM) 1 PATCH DAILY TOPICAL Insulin Human Lispro (HUMALOG) 5 UNIT AC SUBQ Miscellaneous Information (VANCOMYCIN PHARMACY TO DOSE) 1 EACH ASDIR IV (CKD) Heparin Sodium (HEPARIN 5000 UNITS/ML) 5,000 UNIT Q8HR SUBQ (DA) Cefepime HCl (MAXIPIME) 1 GM Q6H IV Sodium Chloride (SODIUM CHLORIDE) 10 MLAcetaminophen (TYLENOL) 650 MG Q6H PRN PRN PO Bisacodyl (DULCOLAX) 10 MG DAILY PRN PRN RECTAL Docusate Sodium (COLACE) 100 MG Q12H PRN PRN PO Hydralazine HCl (APRESOLINE) 10 MG Q6H PRN PRN IV Ondansetron HCl (ZOFRAN) 4 MG Q6H PRN PRN IV Physical ExamGeneral appearance: alert, awake Diagnosis, Assessment PlanHospital course to date:Laboratory Tests: 09/08 09/08 09/08 09/08 09/08 1611 [...] (Auto) (14.0 - 32.0 %) 13.7 L [place] % (Auto) (4.8 - 9.0 %) 7.2 Eos % (Auto) (0.3 - 3.7 %) 4.8 H Baso % (Auto) (0.0 - 2.0 %) 0.3 Neut # (Auto) (2.0 - 7.6 x10 3/uL) 6.64 Lymph # (Auto) (1.0 - 3.8 x10 3/uL) 1.24 [place] # (Auto) (0.1 - 0.8 x10 3/uL) 0.65 Eos # (Auto) (0.0 - 0.2 x10 3/uL) 0.43 H Baso # (Auto) (0.0 - 0.2 x10 3/uL) 0.03 Abs Immat Gran (auto) (0.00 - 0.03 x10 3/uL) 0.06 H Add Manual Diff NO Immature Gran % (0.0 - 2.0 %) 0.7 Nucleated RBC % (0 - 0 %) 0.0 Nucleated RBCs # (Man) (0.0 - 0.1 x10 3/uL) 0.00 Laboratory Tests: 09/07 09/07 09/07 09/07 09/07 1554 1137 1127 0618 0510 Chemistry Creatinine (0.6 - 1.3 mg/dL) 1.4 H POC Glucose (70 - 110 MG/DL) 112 H 51 L 42 L 135 H Hematology Hgb (12.5 - 16.9 [...] 1739 Occult Blood - COMP STOOL Recent Impressions:RADIOLOGY - XR ABDOMEN 1V (KUB) 09/04 1648 Report Impression - Status: SIGNED Entered: 09/04/2022 1757 IMPRESSION: Benign appearance of the abdomen.Impression By: [email or web address] - Roger Parra M.D.ULTRASOUND - DUP VEIN UNI/LTD 09/05 1146 Report Impression - Status: SIGNED Entered: 09/05/2022 1333 IMPRESSION: 1. No evidence of deep vein thrombosis. 2. Complex heterogeneous hypoechoic fluid collection in the left calf region measuring 8.4 x 2.8 x 2.5 cm; there is no internal vascularity or peripheral hyperemia. May represent a hematoma.Impression By: [email or web address] - Mert Ga M.D.RADIOLOGY - XR CHEST 1 V 09/05 1432 Report Impression - Status: SIGNED Entered: 09/05/2022 1515 IMPRESSION: Minimal bibasilar pulmonary opacitiesImpression By: TipTDO - Bishop Mares M.D. Laboratory Tests: 09/04 09/04 09/04 09/04 09/04 [...] COLB STOOL 1.Diabetes mellitus type 2 uncontrolled complications.2. Status post right BKA3. Status post gangrene of the right foot.4. Sepsis5. Prostate abscess.6. AnemiaBlood sugar 99-100 mg/dL.H/H 8.6/26.1Adjust insulin dose.PT and OT. at 1653 RPT #:[id number] OF REPORTPRProgress vmyd0780-54-78A34:52:00G.IRVL46551983-3831FRLqdym able for patient chgnKNJJWQCMZIHVOZ2693-25-53W05:53:26 [facility] 2022-09-08 13:04:00 [id number] TOJfTKZq66qbNZXV4okUNj277jjK1 DSDqXz9bdWPGVXT1QzMNwRLWzkY1987-78-05A64:04:00 [facility] ([facility])Gastroenterology Progress NoteREPORT#:[id number] REPORT STATUS: SignedDATE:09/08/22 TIME: 1304 PATIENT: KARMA ROWLAND UNIT #: [id number]#: [id number] [address] AGE: 56 SEX: M ATTEND: Mj Vences MDADM AUTHOR: Kassie Avitia MD * ALL edits or amendments must be made on the electronic/computer document * SubjectiveHPI:Patient is a 56-year-old male with history of diabetes mellitus type 2 and hypertension who was initially admitted for altered mental status and right-sided foot infection. 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 The patient is anemic with current Hgb 7.1. He has received a total of 3 units pRBCs during this hospitalization. KUB on 09/04 was negative for acute GI process. The patient denies overt GIB, dark tarry stools, nausea, abdominal pain, or vomiting. He has never had EGD orcolonoscopy. 09/06: No complaints today. Hemoglobin stable. No overt GI bleed. Plan for colonoscopy and endoscopy on Thursday 09/07: No complaints today. No overt GI bleed. Planning for colonoscopy and endoscopy tomorrow 09/08: EGD mild gastritis. colonoscopy rectal polyp s/p snare. No other abnormalities Objective Physical ExamHEENT: atraumatic, normocephalicNeck: full range of motion, non-tenderRespiratory: symmetric expansion, no distressAbdomen: non-tender, normal bowel sounds, soft, no distention, no guardingExtremities: right BKA Considered stroke alert: noSkin: dry Diagnosis, Assessment PlanFree Text A P:1. Positive FOBT-KUB on 09/04 was negative for acute GI process. The patient denies overt GIB, dark tarry stools, nausea, abdominal pain, or vomiting. He isnot on anticoagulation therapy.-Continue PPI. The patient has never had EGD or colonoscopy-Planning for EGD and colonoscopy tomorrow-Clear liquid diet today. N.p.o. after midnight tonight. Prep ordereds/p EGD and colonoscopy. EGD showed mild gastritis. Colonoscopy showed rectal polyp that was resected by snare. Anemia likely secondary to chronic kidney disease. 2. Acute on chronic anemia-no overt GIB with current Hgb 7.1. He has received a total of 3 units pRBCs during this hospitalization-Monitor H/H-Monitor for GIB-Transfuse if HGB <7.0 Consultants: cardiology, endocrinology, hospitalist, infectious disease, podiatry at 1306 RPT #:[id number] OF REPORTPRProgress siid3036-36-03Z64:04:00G.[id number] able for patient ommcVJXXXFDADGMLZE1123-59-95O46:06:25 [facility] 2022-09-08 12:48:00 [id number] 86mBVPHYvIdkPB1ABzByLy31KgSkO A3/j+UYsK7+71wdZSCSWC3iW9Iw5929-03-47O32:48:51275 7-[address] [address] PATIENT NAME: KARMA ROWLAND ADMIT DATE: 09/02/22ACCOUNT NO: [id number] [place]OM [place]: [facility] [place] AGE: 56 REPORT TYPE: ENDOSCOPY REPORT SEX: M ADMITTING PHYSICIAN:Mj Vences MD ATTENDING PHYSICIAN:Mj Vences MD Gastroenterology Pat ient Name: Karma Rowland Procedure Date: 09/08/2022 12:48 PMMRN: [id number] of : 1965 Procedure: ColonoscopyIndications: Iron deficiency anemia secondary to chronic blood lossProviders: Silvio Argueta MD: Mj Vences,Requesting Provider: Medicines: Monitored Anesthesia CareProcedure: Pre-Anesthesia Assessment: - Prior to the procedure, a History and Physical was performed, and patient medications, allergies and sensitivities were reviewed. The patient's tolerance of previous anesthesia was reviewed. - The risks and benefits of the procedure and the sedation options and risks were discussed with the patient. All questions were answered and informed consent was obtained. - Patient identification and proposed procedure were verified prior to the procedure by the physician, the nurse, the casting plug assembler and the hazardous materials waste technician. The procedure was verified in the procedure room. - Pre-procedure physical examination revealed no contraindications to sedation. - ASA Grade Assessment: III - A patient with severe systemic disease. - After reviewing the risks and benefits, the patient was deemed in satisfactory condition to undergo the procedure. - Monitored anesthesia care under the supervision of a RESPIRATORY THERAPY DIRECTOR was determined to be medically necessary for this procedure based on review of the patient's medical history, medications, and prior anesthesia history. After I obtained informed consent, the scope was passed under direct vision. Throughout the procedure, the patient's blood pressure, pulse, and oxygen saturations were monitored continuously. The Colonoscope was introduced through the anus and advanced to the cecum, identified by appendiceal PATIENT NAME: KARMA ROWLAND orifice and ileocecal valve. The colonoscopy was performed without difficulty. The patient tolerated the procedure well. The quality of the bowel preparation was good. Findings: The perianal and digital rectal examinations were normal. The colon (entire examined portion) appeared normal. A 6 mm polyp was found in the rectum. The polyp was sessile. The polyp was removed with a cold snare. Resection and retrieval were complete. Internal hemorrhoids were found during retroflexion. The hemorrhoids were medium-sized. Complications: No immediate complications. Estim ated Blood Loss: Estimated blood loss: none.Impression: - The entire examined colon is normal. - One 6 mm polyp in the rectum, removed with a cold snare. Resected and retrieved. - Internal hemorrhoids.Recommendation: - Return patient to [facility] for [facility] care. - Resume previous diet. - Continue present medications. - Await pathology results. - Repeat colonoscopy in 5 years for surveillance. Procedure Code(s): --- Professional --- 57016, Colonoscopy, flexible; with removal of tumor(s), polyp(s), or other lesion(s) by snare techniqueDiagnosis Code(s): --- Professional --- K64.8, Other hemorrhoids K62.1, Rectal polyp D50.0, Iron deficiency anemia secondary to blood loss (chronic) CPT copyright 2020 [employer]. All rights reserved. The codes documented in this report are preliminary and upon meteorological engineer review may be revised to meet current compliance requirements. Kassie Avitia MD09/08/2022 1:04:26 PMNumber of Addenda: 0 Note Initiated On: 09/08/2022 12:48 PMProvation {[id number]}.pdf ProVation FT PDF PATIENT NAME: KARMA ROWLAND at 1304 PATIENT NAME: KARMA ROWLAND tuaphpn3701-72-95S33:04:00G.UGF90257594-2117ZCZrq ilable for patient beohERMAPTPGPIDGPC4489-15-75M12:05:05 [facility] 2022-09-08 12:23:00 [id number] AIQaCIArBFHlenVTGK3CG6+6+WKlc YtcNwzw0tbiJYoVFbBEkzE4Vfy40922-99-87S68:23:00 [facility])Infectious Dis. Progress NoteREPORT#:[id number] REPORT STATUS: SignedDATE:09/08/22 TIME: 1223 PATIENT: KARMA ROWLAND UNIT #: [id number]#: [id number] [address] [birth year] AGE: 56 SEX: M ATTEND: Mj Vences [facility] AUTHOR: Merry Wolff MD * ALL edits or amendments must be made on the electronic/computer document * SubjectiveHPI:PT is a 56yr old male with history of diabetes mellitus type 2, hypertension whowas admitted with altered mental status and right-sided foot infection. According to him, he noticed a blister on his right foot around 3 days prior to presentation. His foot got progressively more swollen and erythema extended proximally to his lateral foot and ankle. CT abdomen and pelvis with contrast is concerning for possible prostate abscess. CT of lower extremity without contrast shows extensive soft tissue edema with mottled gas in the subcutaneous and intramuscular compartments of the foot, compatible with gas-forming infection. Patient's blood cultures have come back positive for MRSA in 2 out of 2 sets. PT has had persistent (+)Ve cx for MRSA 08/18- 08/22. He underwent a debridement of his foot on 08/19 and cx grew MRSA. PT was started on Vancomycin and clindamycin on 08/18. His MRI showed a prostate abscess. 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 Pt underwent a transrectal aspiration and unroofing of prostate abscess 08/26 and cx grew Citrobacter, Enterococcus, MRSA. He also hada BKA of right leg 08/28. JIMENA done 09/02. Pt was transferred to Rehab on 09/02. 09/08 doing well, no changes overnight, plan for EGD/colon todayPatient reports:Yes: pain controlled. No: cough, diarrhea, fever, headache, nausea, shortness of breath. Portions of this section were scribed by Jill Quintero on 09/08/22 at 1623 Objective GeneralVS/I O:Vital SignsDate Temp Pulse Resp B/P B/P Mean Pulse Ox FrW801/-09/08 97.3-98.8 80-98 10-20 131-175/71-88 102.1-116.8 95-99 Last [...] O2 Flow FiO2 Mean Ox Delivery Rate 09/08 1345 [...] Output, Urine 600 PATIENT WEIGHT: Weight (lb): 165Weight (oz): 5.55Weight (kg): 75.000 Antibiotic start date:Antibiotic: vancomycinStart Date:09/03 Antibiotic: daptomycin Start Date:08/28-09/03 Antibiotic: cefepime Start Date:09/01- Antibiotic: merremStart Date:08/27-09/01 Physical ExamGeneral appearance: alert, awake, orientedHead/Eyes: atraumatic, clear cornea, EOMI, normal conjunctiva/sclera, normal eyelids/periorb, normocephalic, PERRLENT: moist mucosal membranes, normal dentitionNeck: full range of motionCardiovascular: normal heart sounds, regular rate rhythmRespiratory: clear to auscultation, aerating wellAbdomen: non-tender, normal bowel sounds, softExtremities: moves all, right BKA Left foot wound +dressing in placeNeuro/DIRECTOR OPERATING ROOM: alert, oriented X 3 Considered stroke alert: noSkin: dry, intact ResultsFindings/Data:Laboratory Tests 09/08 09/08 09/08 09/07 09/07 1033 0616 0615 2238 2110Chemistry Sodium (134 - 147 mEq/L) 135 Potassium [...] Total Creatine Kinase (46 - 171 22 LUnits/L) Albumin (3.4 - 5.0 g/dL) 1.30 L [...] (Auto) (14.0 - 32.0 %) 13.7 L [place] % (Auto) (4.8 - 9.0 %) 7.2 Eos % (Auto) (0.3 - 3.7 %) 4.8 H Baso % (Auto) (0.0 - 2.0 %) 0.3 Neut # (Auto) (2.0 - 7.6 x10 3/uL) 6.64 Lymph # (Auto) (1.0 - 3.8 x10 3/uL) 1.24 [place] # (Auto) (0.1 - 0.8 x10 3/uL) 0.65 Eos # (Auto) (0.0 - 0.2 x10 3/uL) 0.43 H Baso # (Auto) (0.0 - 0.2 x10 3/uL) 0.03 Abs Immat Gran (auto) (0.00 - 0.03 x10 3/uL) 0.06 H Add Manual Diff NO Immature Gran % (0.0 - 2.0 %) 0.7 Nucleated RBC % (0 - 0 %) 0.0 Nucleated RBCs # (Man) (0.0 - 0.1 x10 3/uL) 0.00 Laboratory Tests 09/08 1045 Toxicology Random Vancomycin [...] (Auto) (14.0 - 32.0 %) 13.7 L [place] % (Auto) (4.8 - 9.0 %) 7.2 Eos % (Auto) (0.3 - 3.7 %) 4.8 H Baso % (Auto) (0.0 - 2.0 %) 0.3 Neut # (Auto) (2.0 - 7.6 x10 3/uL) 6.64 Lymph # (Auto) (1.0 - 3.8 x10 3/uL) 1.24 [place] # (Auto) (0.1 - 0.8 x10 3/uL) 0.65 Eos # (Auto) (0.0 - 0.2 x10 3/uL) 0.43 H Baso # (Auto) (0.0 - 0.2 x10 3/uL) 0.03 Abs Immat Gran (auto) (0.00 - 0.03 x10 3/uL) 0.06 H Add Manual Diff NO Immature Gran % (0.0 - 2.0 %) 0.7 Nucleated RBC % (0 - 0 %) 0.0 Nucleated RBCs # (Man) (0.0 - 0.1 x10 3/uL) 0.00 Toxicology Random Vancomycin (mcg/mL) 15.8 09/07 09/07 09/07 09/07 09/07 2238 2110 1554 1137 1127 Chemistry POC Glucose (70 - 110 MG/DL) 135 H 127 H 112 H 51 L 42 L 09/07 09/07 09/06 09/06 09/06 0618 0510 2226 2108 1553Chemistry Creatinine (0.6 - 1.3 mg/dL) 1.4 H POC Glucose (70 - 110 MG/DL) 135 H 192 H 211 HHematology Hgb (12.5 - 16.9 g/dL) 8.4 L Hct (37.5 - 50.7 %) 26.2 LToxicology Vancomycin Trough (10.0 - 20.0 mcg/mL) 18.9 Random Vancomycin (mcg/mL) 14.7 09/06 1547 Chemistry POC Glucose (70 - 110 MG/DL) 119 H Medication(s) Ordered:Anti-Infective Agents Sig/Jan Start time Last Medication Dose Route Stop Time Status Admin Vancomycin HCl 500 MG Q24H 09/08 1300 AC Sodium Chloride 100 ML IV 09/25 1259 Miscellaneous 1 EACH ASDIR 09/03 0130 CKD Information IV 10/03 0129 Cefepime HCl 1 GM Q6H 09/02 2100 AC 09/08 Sodium Chloride 10 ML IV 09/13 205 0747 Blood Formation,Coagulation Sig/Jan Start time Last Medication Dose Route Stop Time Status Admin Heparin Sodium 5,000 UNIT Q8HR 09/02 2200 DA 09/06 SUBQ 10/02 2159 0531 Cardiovascular Drugs Sig/Jan Start time Last Medication Dose Route Stop Time Status Admin Hydralazine HCl 2 MG PACU Q10MIN PRN PRN 09/08 0915 AC IV 09/08 1711 Labetalol HCl 5 MG PACU Q10MIN PRN PRN 09/08 0915 AC IV 09/08 1711 Carvedilol 3.125 MG C BK DIN 09/08 0800 AC 09/08 PO 10/08 0759 0746 Hydralazine HCl 10 MG Q6H PRN PRN 09/01 1330 AC IV 10/01 1329 Central Nervous System Agents Sig/Jan Start time Last Medication Dose Route Stop Time Status Admin Fentanyl Citrate 100 MCG PACU Q10MIN PRN PRN 09/08 0915 AC IV 09/08 1711 Fentanyl Citrate 50 MCG PACU Q10MIN PRN PRN 09/08 0915 AC IV 09/08 1711 Amitriptyline HCl 25 MG BEDTIME 09/04 2100 AC 09/07 PO 10/04 2059 2231 Hydrocodone Bitart/ 1 TAB Q4H PRN PRN 09/03 1400 AC 09/07 Acetaminophen PO 10/18 1300 1454 Hydromorphone HCl 1 MG Q6H PRN PRN 09/03 1400 AC 09/07 IV 10/18 1300 2256 Acetaminophen 650 [...] 10 ML ASDIR PRN 09/05 0630 AC 09/08 IV 10/05 0629 0747 Sterile Water See Dose ASDIR PRN 09/03 2030 AC Insts (1) IRR 10/03 202 Dextrose/Water 125 ML ASDIR PRN 09/03 1515 CKD IV 10/03 1514 Dextrose/Water 250 ML ASDIR PRN 09/03 1515 CKD IV 10/03 1514 Gastrointestinal Drugs Sig/Jan Start time Last Medication Dose Route Stop Time Status Admin Ondansetron HCl 4 MG PACU ONCE PRN 09/08 0915 AC IV 09/08 1711 Polyethylene Glycol/ 2,000 ML ONCE ONE 09/08 0700 DC 09/08 Electrolytes PO 09/08 0701 0706 Polyethylene Glycol/ 2,000 ML ONCE ONE 09/07 1800 DC 09/07 Electrolytes PO 09/07 1801 1921 Pantoprazole Sodium 40 MG Q12HR 09/05 0900 AC 09/08 IV 10/05 0859 0747 Polyethylene Glycol 17 GM DAILY 09/05 0900 AC 09/07 PO 10/05 0859 0849 Sennosides [...] Glargine 5 UNIT BEDTIME 09/07 2100 AC 09/07 SUBQ 10/07 2059 2233 Insulin Glargine 7 UNIT BEDTIME 09/05 2100 DC 09/06 SUBQ 10/05 2059 2229 Insulin Human Lispro 0 HS 09/03 1630 AC 09/06 SUBQ 10/03 1629 2229 Glucagon 1 MG ASDIR PRN 09/03 1515 AC IM 10/03 1514 Insulin Human Lispro 5 UNIT 09/03 0730 AC 09/07 SUBQ 10/03 0729 0848 Local Anesthetics [...] AC 09/07 TOPICAL 10/04 0859 0852 Dose Instructions:(1)Sterile Water: DRESSING CHANGE Recent Impressions:RADIOLOGY - XR CHEST 1 V 09/05 1432 Report Impression - Status: SIGNED Entered: 09/05/2022 1515 IMPRESSION: Minimal bibasilar pulmonary opacitiesImpression By: Yared Mares M.D. Portions of this section were scribed by Jill Quintero on 09/08/22 at 1623 Diagnosis, Assessment PlanFree Text A P:*MRSA bacteremia-Initial blood cultures from 08/18/2022 positive for MRSA in 2 out of 2 sets.-Repeat blood cultures 08/21/2022 are already positive for MRSA in 2 out of 2 sets, suggesting persistent high-grade bacteremia.-TTE 08/18/2022 negative for any obvious vegetations.-08/28 neg-JIMENA 09/02 neg*Prostatic abscess-s/p transrectal aspiration and unroofing on 08/26-cx MRSA, citrobacter (r-cefazolin) Enterococcus raffinosus (S-amp,pcn, vancomycin), bacteriodes*ERIKA*Hyponatremia*Diabetic neuropathy*Diabetes mellitus type 2*Hypertension*anemia 09/08-cont on Cefepime and vancomycin til 09/24 for treatment of Prostate abscess-follow esr and crp-EGD today Consultants: cardiology, endocrinology, hospitalist, infectious disease, podiatry Portions of this section were scribed by Jill Quintero on 09/08/22 at 1223 at 1135 RPT #:[id number] OF REPORTPRProgress [id number]:23:00G.[id number] able for patient dtzvKREPJRFFOSGYEI2896-79-72U53:36:47 [facility] 2022-09-08 12:08:00 [id number] xNarX2TxT2uPFr+rul2sj2M5pAAAS 2RZpO3zShJWYDQOWcS/RtTEdFSt7952-87-24B86:08:00 [facility] ([facility])Cardiology Progress NoteREPORT#:[id number] REPORT STATUS: SignedDATE:09/08/22 TIME: 1208 PATIENT: KARMA ROWLAND UNIT #: [id number]#: [id number] [address] AGE: 56 SEX: M ATTEND: Mj Vences MDADM AUTHOR: Rohit Benitez RESEARCH MANUFACTURING OPERATOR * ALL edits or amendments must be made on the electronic/computer document * Rohit Benitez 09/08/22 1208:SubjectiveChief complaint:weakness Free Text Subj NotesFree Text Subj Notes:Patient seen and evaluated. Sitting up in the wheelchair, currently n.p.o. withplan for EGD today. Continue to have lower extremity edema. Denies chest pain or shortness of breath. Objective GeneralVS/I O:24 hour I O ending at 0700: 09/08 0700 09/07 1900 Intake Total 2000 Output Total 600 Balance 1400 Intake, Oral 2000 Number 2 Bowel Movements Number 0 Incontinent Voids Number Voids 0 Output, Urine 600 Vital Signs: Date Time Temp Pulse Resp B/P B/P Pulse O2 O2 Flow FiO2 Mean Ox Delivery Rate 09/08 0711 98.1 92 20 151/78 102.1 09/07 2358 91 160/78 105 09/07 2335 98.8 91 14 163/82 108.9 95 09/07 2215 98 158/88 111 09/07 2000 97.3 87 17 175/88 116.8 97 09/07 1556 97.5 93 15 177/90 118.8 98 PATIENT WEIGHT: Weight (lb): 165Weight (oz): 5.55Weight (kg): 75.000 Medications:Active Meds + DC'd Last 24 HrsFentanyl Citrate (SUBLIMAZE) 100 MCG PACU Q10MIN PRN PRN IV Fentanyl Citrate (SUBLIMAZE) 50 MCG PACU Q10MIN PRN PRN IV Hydralazine HCl (APRESOLINE) 2 MG PACU Q10MIN PRN PRN IV Insulin Human Lispro (HUMALOG) 0 PACU ONCE PRN SUBQ Labetalol HCl (LABETALOL HCL) 5 MG PACU Q10MIN PRN PRN IV Ondansetron HCl (ZOFRAN) 4 MG PACU ONCE PRN IV Carvedilol (COREG) 3.125 MG C BK DIN PO Polyethylene Glycol/Electrolytes (GOLYTELY) 2,000 ML ONCE ONE PO (DC) Insulin Glargine (Lantus/Semglee) 5 UNIT BEDTIME SUBQ Polyethylene Glycol/Electrolytes (GOLYTELY) 2,000 ML ONCE ONE PO (DC) Insulin Glargine (Lantus/Semglee) 7 UNIT BEDTIME SUBQ (DC) Furosemide (LASIX 20MG INJ) 20 MG BLOOD-DOSE BETWEEN IV (CKD) Sodium Chloride (SODIUM CHLORIDE) 10 ML ASDIR IV Furosemide (LASIX) 20 MG DAILY PO Pantoprazole Sodium (PROTONIX) 40 MG Q12HR IV Polyethylene Glycol (MIRALAX) 17 GM DAILY PO Sennosides (Senna Lax 8.6 MG TABLET) 8.6 MG DAILY PO Sodium Chloride (SODIUM CHLORIDE) 10 ML ASDIR PRN IV Amitriptyline HCl (ELAVIL) 25 MG BEDTIME PO Mupirocin (BACTROBAN 2% 22 GM OINTMENT) 1 APPLIC BID NASAL Zinc Oxide (ZINC OXIDE 30 GM OINTMENT) 1 APPLIC DAILY TOPICAL Sterile Water (WATER FOR IRRIGATION) DRESSING CHANGE ASDIR PRN IRR Insulin Human Lispro (HUMALOG) 0 AC HS SUBQ Dextrose/Water (DEXTROSE 10% IN WATER) 125 ML ASDIR PRN IV (CKD) Dextrose/Water (DEXTROSE 10% IN WATER) 250 ML ASDIR PRN IV (CKD) Glucagon (GLUCAGON) 1 MG ASDIR PRN IM Hydrocodone Bitart/Acetaminophen (NORCO 10/325) 1 TAB Q4H PRN PRN PO Hydromorphone HCl (DILAUDID) 1 MG Q6H PRN PRN IV Lidocaine (LIDODERM) 1 PATCH DAILY TOPICAL Insulin Human Lispro (HUMALOG) 5 UNIT AC SUBQ Miscellaneous Information (VANCOMYCIN PHARMACY TO DOSE) 1 EACH ASDIR IV (CKD) Heparin Sodium (HEPARIN 5000 UNITS/ML) 5,000 UNIT Q8HR SUBQ (DA) Cefepime HCl (MAXIPIME) 1 GM Q6H IV Sodium Chloride (SODIUM CHLORIDE) 10 MLAcetaminophen (TYLENOL) 650 MG Q6H PRN PRN PO Bisacodyl (DULCOLAX) 10 MG DAILY PRN PRN RECTAL Docusate Sodium (COLACE) 100 MG Q12H PRN PRN PO Hydralazine HCl (APRESOLINE) 10 MG Q6H PRN PRN IV Ondansetron HCl (ZOFRAN) 4 MG Q6H PRN PRN IV Physical ExamGeneral appearance: alert, awake, orientedNeck: no bruit/NL carotids, no JVDCardiovascular: CV assessment: regular rate and rhythm, no ectopy, no gallopRespiratory: clear to auscultation, no distressAbdomen: soft, non-tenderLower extremity: LE assessment: edema, normal temperatureNeuro/DIRECTOR OPERATING ROOM: alert, oriented X 3 Considered stroke alert: noWound/incision: Location:right bkaPsychiatry: normal affect, normal judgment/insight, normal mood ResultsFindings/Data:Laboratory Tests 09/08 09/08 09/08 09/07 09/07 1033 0616 0615 2230 0Chemistry Sodium (134 - 147 mEq/L) 135 Potassium [...] (Auto) (14.0 - 32.0 %) 13.7 L [place] % (Auto) (4.8 - 9.0 %) 7.2 Eos % (Auto) (0.3 - 3.7 %) 4.8 H Baso % (Auto) (0.0 - 2.0 %) 0.3 Neut # (Auto) (2.0 - 7.6 x10 3/uL) 6.64 Lymph # (Auto) (1.0 - 3.8 x10 3/uL) 1.24 [place] # (Auto) (0.1 - 0.8 x10 3/uL) 0.65 Eos # (Auto) (0.0 - 0.2 x10 3/uL) 0.43 H Baso # (Auto) (0.0 - 0.2 x10 3/uL) 0.03 Abs Immat Gran (auto) (0.00 - 0.03 x10 3/uL) 0.06 H Add Manual Diff NO Immature Gran % (0.0 - 2.0 %) 0.7 Nucleated RBC % (0 - 0 %) 0.0 Nucleated RBCs # (Man) (0.0 - 0.1 x10 3/uL) 0.00 Laboratory Tests 09/08 1045 Toxicology Random Vancomycin (mcg/mL) 15.8 Laboratory Tests 09/08 0615 Chemistry Magnesium (1.80 - 2.40 mg/dL) 1.58 L Diagnosis, Assessment PlanConsultants: cardiology, endocrinology, hospitalist, infectious disease, podiatry Free Text DxA P NotesFree Text DxA P Notes:Impression: 1. Debility2. Infected right foot status post BKA3. Bacteremia4. Diabetes5. Hypertension 6. Anemia 07/2022: Echocardiogram with normal LVEF, grade 1 diastolic dysfunction, mildly dilated LA, and no significant valvular abnormalities Recommendation: Patient initially presented with DKA and sepsis. Diagnosed with right foot infection, underwent I D, now status post BKA. Patient had persistent bacteremia with MRSA, underwent JIMENA with negative findings of endocarditis. Patient now transferred to rehab for physical therapy. Known cardiac history ofhypertension and hyperlipidemia. Vital signs stable. Echocardiogram with normal LVEF, grade 1 diastolic dysfunction, mildly dilated LA, and no significant valvular abnormalities. Continue to monitor blood pressure trend. Continue wound care and IV antibiotic therapy. Continue PT/OT. Supportive care. 09/04: Patient complaining of shortness of breath, abdominal distention and lowerextremity edema. Renal function and electrolytes stable. Will give one-time dose of IV Lasix 40 mg. Blood pressure stable. Pending abdominal x-ray. Monitor intake and output. Check BMP in the morning. Supportive care. Plan ofcare discussed with patient, RN and Dr. Parham. 09/05: Patient responded well to IV Lasix, good urine output and improvement in shortness of breath. Chest x-ray ordered. Currently on Lasix 20 mg p.o. daily. Continue monitor renal function and electrolytes. Pending lower extremity Doppler for lower extremity edema. Continue PT/OT. Supportive care. Plan of care discussed with patient, RN and Dr. Parham. 09/08: Blood pressure has been elevated, started on Coreg 3.125 mg twice daily. Continue monitor blood pressure trend and adjust medication as needed. Still having left lower extremity edema, venous Doppler negative for DVT. continue gentle diuresis with Lasix 20 mg p.o. daily. Recommend Joan wrap. Patient remains anemic, plan for EGD/colonoscopy today. Supportive care. Plan of care discussed with patient, family, RN and Dr. Parham. Napoleon Parham 09/09/22 2223:Diagnosis, Assessment PlanAdditional comments:Agree with above assessment and plan as documented by nurse practitioner, continue current management, will follow. at 1803 at 2224 RPT #:[id number] OF REPORTPRProgress [id number]:08:00G.[id number] able for patient wesiKIWVTEWNRGDZQC0356-14-86O55:05:51 [facility] 2022-09-08 12:04:00 [id number]+Bw OBi6dZzZm15krrU+mAkDrOLoGfYTb lmiOKNRpErDiSD1l9aFBlafiq6x7805-12-25G49:04:00 [facility] Prog.Note-VancomycinREPORT#:[id number] REPORT STATUS: SignedDATE:09/08/22 TIME: 1204 PATIENT: KARMA ROWLAND UNIT #: [id number]#: [id number] [address] AGE: 56 SEX: M ATTEND: Mj Vences [facility] AUTHOR: Elizabeth Collado [facility] * ALL edits or amendments must be made on the electronic/computer document * Vancomycin Vancomycin Medication TherapyGoal: AUC 400-600 mg*hr/LIndication for treatment:OM and MRSA BacteremiaCurrent therapy:vancomycin 750mg IV Q24h on 09/07cefepime 1gm IV Q6h Day of therapy:8Weight: Actual weight (kg): 75Labs:Laboratory Tests: 09/08 09/07 09/06 1045 0510 1553 [...] admin history: Lab Lab Level SCr Info Drawer In Stitch Bonding Machine Med Dose Interaction/Dialysis Date/Time Date/Time Notes: Treatment plan: consult, change regimenRegimen:Mr Karma Rowland is a 56yr old male with history of diabetes mellitus type 2,hypertension who was admitted with altered mental status and right-sided foot infection. According to him, he noticed a blister on his right foot around 3 days prior to presentation on 08/18. His foot got progressively more swollen anderythema extended proximally to his lateral foot and ankle. CT abdomen and pelvis with contrast is concerning for possible prostate abscess. CT of lower extremity without contrast shows extensive soft tissue edema with mottled gas inthe subcutaneous and intramuscular compartments of the foot, compatible with gas-forming infection. Patient's blood cultures have come back positive for MRSA in 2 out of 2 sets. PT has had persistent (+)Ve cx for MRSA 08/18- 08/22. He underwent a debridement of his foot on 08/19 and cx grew MRSA. PT was started onVancomycin and clindamycin on 08/18. His MRI showed a prostate abscess. 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 Patient is s/p ICU stay with merrem/daptomycin. ID adjusting regimen to cefepime/vancomycin. Pharmacy consulted todose vancomycin. Consulting provider: Dr. Padillaication: OM and MRSA BacteremiaGoal: AUC 400-600 mcg*hr/ml A/P 09/08:* [facility]hab 09/01* Tmax: 98.8 F, WBC 9.1 WNL* Renal: Cr: 1.4 (unchaged x past 3 days), estCrCl 52mL/min, urine output: 600 mL/24 hrs documented* Micro: 08/26 prostate abscess: C farmeri, MRSA, E raffinosus. 08/18, 08/19, 08/21, 08/22, 08/25 blood MRSRA. 08/28 blood - NGTD, MRSA screen neg* Imagin/30 MRI - OM of talus, caeianeus and navicular bone; JIMENA - negativefor endocarditis * Regimen: End date 09/24 per ID. Pt was on vanc 08/18 to 08/24. Regimen then adjusted to daptomycin and teflaro on 08/25. Vanc restarted on 09/01 with vancomycin 1 g IV q24h. * Monitoring: Vanc peak on 09/03 at 1830 = 27.7 mcg/ml, Trough: 12.8. Theapeutic (AUC = 462) t1/2: 24 hrs. Repeat trough 09/07 was 18.9 mcg/ml, supratherapeutic. Patient was changed to dose per level on 09/06. Today random level was 15.8mcg/mL @10:45 09/08, therapeutic; however with surrogate trough 12.8mcg/mL will now try to put pt on a scheduled regimen of vancomycin 500mg IV Q24h as scr unchanged over the last 3 days and will reorder vanc trough before the 3rd dose* Pharmacy will monitor and adjust vanc dose to goal at 1217 RPT #:[id number] OF REPORTPRProgress [id number]:04:00G.[id number] able for patient ziteLXCNLGKZAVUDPF7898-79-84Q08:17:40 [facility] 2022-09-08 10:47:00 [id number] +iwga9eNoh6Te7hDzotua4nhNc5Ks 8oc7ZDNOIjGtXxYg3FXCk1VIllM0809-19-50Q91:47:93683 7-[address] [place] [address] PATIENT NAME: KARMA ROWLAND ADMIT DATE: 09/02/22ACCOUNT NO: [id number] ROOM NO: G.537 AGE: 56 REPORT TYPE: ENDOSCOPY REPORT SEX: M ADMITTING PHYSICIAN:Mj Vences MD ATTENDING PHYSICIAN:Mj Vences MD Gastroenterology Pat ient Name: Karma Rowland Procedure Date: 09/08/2022 10:47 AMMRN: [id number] of : 1965 Procedure: Upper GI endoscopyIndications: Iron deficiency anemia secondary to chronic blood lossProviders: Silvio Argueta MD: Mj Vences,Requesting Provider: Medicines: Monitored Anesthesia CareProcedure: Pre-Anesthesia Assessment: - Prior to the procedure, a History and Physical was performed, and patient medications, allergies and sensitivities were reviewed. The patient's tolerance of previous anesthesia was reviewed. - The risks and benefits of the procedure and the sedation options and risks were discussed with the patient. All questions were answered and informed consent was obtained. - Patient identification and proposed procedure were verified prior to the procedure by the physician, the nurse, the casting plug assembler and the hazardous materials waste technician. The procedure was verified in the procedure room. - Pre-procedure physical examination revealed no contraindications to sedation. - ASA Grade Assessment: III - A patient with severe systemic disease. - After reviewing the risks and benefits, the patient was deemed in satisfactory condition to undergo the procedure. - Monitored anesthesia care under the supervision of a RESPIRATORY THERAPY DIRECTOR was determined to be medically necessary for this procedure based on review of the patient's medical history, medications, and prior anesthesia history. After obtaining informed consent, the endoscope was passed under direct vision. Throughout the procedure, the patient's blood pressure, pulse, and oxygen saturations were monitored continuously. The Endoscope was introduced through the mouth, and advanced to the second part of duodenum. The upper GI endoscopy was PATIENT NAME: KARMA ROWLAND accomplished without difficulty. The patient tolerated the procedure well. Findings: The examined esophagus was normal. Diffuse mildly erythematous mucosa without bleeding was found in the gastric antrum. The examined duodenum was normal. Complications: No immediate complications. Estim ated Blood Loss: Estimated blood loss: none.Impression: - Normal esophagus. - Erythematous mucosa in the antrum. - Normal examined duodenum. - No specimens collected.Recommendation: - Return patient to [facility] [place] for ongoing care. - Resume previous diet. - Continue present medications. Procedure Code(s): --- Professional --- 44801, Esophagogastroduodenoscopy, flexible, transoral; diagnostic, including collection of specimen(s) by brushing or washing, when performed (separate procedure)Diagnosis Code(s): --- Professional --- K31.89, Other diseases of stomach and duodenum D50.0, Iron deficiency anemia secondary to blood loss (chronic) CPT copyright 2020 [employer]. All rights reserved. The codes documented in this report are preliminary and upon meteorological engineer review may be revised to meet current compliance requirements. Kassie Avitia MD09/08/2022 1:02:49 PMNumber of Addenda: 0 Note Initiated On: 09/08/2022 10:47 AMProvation {[id number]}.pdf ProVation FT PDF at 1303 PATIENT NAME: KARMA ROWLAND vmvlpgl8619-50-57T69:03:00G.[id number] ilable for patient hbsuXZJURGVPPUKGHB4586-78-99L22:03:34 [facility] 2022-09-08 10:07:00 [id number] QnWKguLU2mSuYFoyuE1ShZdxIpnaD 5ID8hJnfcyObZGNiKHFe6keJpWK1608-31-82A70:07:78179 0-[address] [address] PATIENT NAME: KARMA ROWLAND ADMIT DATE: 09/02/22ACCOUNT NO: [id number] ROOM NO: G.537 AGE: 56 REPORT TYPE: eELECTROCARDIOGRAM REPORT SEX: M ADMITTING PHYSICIAN:Mj Vences MD ATTENDING PHYSICIAN:Mj Vences MD Order:[id number] Reason : PREOP EVAL Test Date/Time Stamp:ThuSep 08 2022 10:07:52Blood Pressure : / mmHGVent. Rate : 087 BPM Atrial Rate : 087 BPM P-R Int : 160 ms QRS Dur : 084 ms QT Int : 362 ms P-R-T Axes : 039 007 016 degrees QTc Int : 435 ms Sinus rhythm with fusion complexesOtherwise normal ECGWhen compared with ECG of 18-AUG-2022 01:43,Significant changes have occurredConfirmed by NAPOLEON PARHAM MD ([id number]) on 09/11/2022 5:46:20 PM Referred By: Mj Vences Confirmed by:JITENDRA PARHAM MD at 1746 PATIENT NAME: KARMA ROWLAND .[id number] AVAvailable for patient nsauQMTVSJDBUEZWGQ3531-56-12S62:46:38 [facility] 2022-09-08 09:57:00 [id number] bAGgaYervmPPAV7+kW8uSECiRg/iW ClaDTym8w/b/9WP4ElFNyEGL0QV9291-35-32Z96:57:00 [facility])Rehab Progress NoteREPORT#:[id number] REPORT STATUS: SignedDATE:09/08/22 TIME: 956 PATIENT: KARMA ROWLAND UNIT #: [id number]#: [id number] [address] [birth year] AGE: 56 SEX: M ATTEND[facility]j [facility] AUTHOR: Mj Vences MD * ALL edits or amendments must be made on the electronic/computer document * SubjectiveChief complaint:Rehabilitation follow-upTo go down for endoscopyDoing better+ BMEatingDenies DICKENS/N/V/D/CP14 systems reviewed and neg. except that above.History of present illness:56 yo HAM with long h/o DM, and HTN who was admitted for fever, flulike symptomsand altered mental status on 08/18. He was doing well until about 3 days prior toadmission when he noted blister to have formed on the dorsum of his foot. His foot started progressively getting more swollen and the blisters started enlarging and extending to his lateral foot and ankle. He started feeling weak and nauseated. He was noted to have altered mentation and was brought to our ER.He was noted to be in DKA with Blood sugars greater than 600. He was seen by podiatry and surgery for BLE wounds and infection. He was treated in ICU for sepsis and DKA. He underwent incisional and excisional debridement of right footand right ankle by podiatry. Patient also found to have prostate abscess underwent transrectal ultrasound aspiration of abscess and transurethral resection of prostate and unroofing of abscess by urology Dr. Du. Endocrinology treated the DKA and blood sugars much improved. Patient's right foot was not salvageable and patient underwent right BKA by Dr. LEROY on 08/28. Patient blood cultures showed MRSA. Patient continued on antibiotics as per ID. MRI of the pelvis and foot completed. Patient required multiple PRBCs for anemia. Patient was found to have a possible small hematoma of the left calf onultrasound. He complains of pain and swelling of the left ankle. Patient hemodynamically stable and plans are to be transferred to stepdown unit. He is on heparin subcu for VTE. After surgery he is now being mobilized by PT and OT.He is wearing a maxnie-tech orthotic for right knee/BKA protection. Prior to admission the patient was independent living in a single-story house with his spouse with a few steps up to front and back door. 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 is at bedside. Patient denies nausea, vomiting, fever, chills, chest pain, shortness of breath with dizziness. He is requiring IV Dilaudid for pain control. Mental status back to baseline. Pt is progressing slowly with therapy d/t weakness and pain, self care deficit, decreased endurance and balance, and decreased functional mobility. Pt requiring acute inpt rehab for multidisciplinary team of nursing, therapy, and physicians. Pt iswilling and able to partici- kathleen in 3 hr/day inpt rehab to d/c home safely. Pt's prior level of function was independent. Objective GeneralVS:Vital Signs: Date Time Temp Pulse Resp B/P B/P Pulse O2 O2 Flow FiO2 Mean Ox Delivery Rate 09/08 0711 98.1 92 20 151/78 102.1 09/07 2358 91 160/78 105 09/07 2335 98.8 91 14 163/82 108.9 95 09/07 2215 98 158/88 111 09/07 2000 97.3 87 17 175/88 116.8 97 09/07 1556 97.5 93 15 177/90 118.8 98 09/07 1129 98.1 87 15 155/74 100.6 96 PATIENT WEIGHT: Weight (lb): 165Weight (oz): 5.55Weight (kg): 75.000 Medications:Active Meds + DC'd Last 24 HrsFentanyl Citrate (SUBLIMAZE) 100 MCG PACU Q10MIN PRN PRN IV Fentanyl Citrate (SUBLIMAZE) 50 MCG PACU Q10MIN PRN PRN IV Hydralazine HCl (APRESOLINE) 2 MG PACU Q10MIN PRN PRN IV Insulin Human Lispro (HUMALOG) 0 PACU ONCE PRN SUBQ Labetalol HCl (LABETALOL HCL) 5 MG PACU Q10MIN PRN PRN IV Ondansetron HCl (ZOFRAN) 4 MG PACU ONCE PRN IV Carvedilol (COREG) 3.125 MG C BK DIN PO Polyethylene Glycol/Electrolytes (GOLYTELY) 2,000 ML ONCE ONE PO (DC) Insulin Glargine (Lantus/Semglee) 5 UNIT BEDTIME SUBQ Polyethylene Glycol/Electrolytes (GOLYTELY) 2,000 ML ONCE ONE PO (DC) Vancomycin HCl (VANCOMYCIN HCL) 750 MG ONCE ONE IV (DC) Sodium Chloride (SODIUM CHLORIDE 0.9%) 250 MLInsulin Glargine (Lantus/Semglee) 7 UNIT BEDTIME SUBQ (DC) Furosemide (LASIX 20MG INJ) 20 MG BLOOD-DOSE BETWEEN IV (CKD) Sodium Chloride (SODIUM CHLORIDE) 10 ML ASDIR IV Furosemide (LASIX) 20 MG DAILY PO Pantoprazole Sodium (PROTONIX) 40 MG Q12HR IV Polyethylene Glycol (MIRALAX) 17 GM DAILY PO Sennosides (Senna Lax 8.6 MG TABLET) 8.6 MG DAILY PO Sodium Chloride (SODIUM CHLORIDE) 10 ML ASDIR PRN IV Amitriptyline HCl (ELAVIL) 25 MG BEDTIME PO Mupirocin (BACTROBAN 2% 22 GM OINTMENT) 1 APPLIC BID NASAL Zinc Oxide (ZINC OXIDE 30 GM OINTMENT) 1 APPLIC DAILY TOPICAL Sterile Water (WATER FOR IRRIGATION) DRESSING CHANGE ASDIR PRN IRR Insulin Human Lispro (HUMALOG) 0 AC HS SUBQ Dextrose/Water (DEXTROSE 10% IN WATER) 125 ML ASDIR PRN IV (CKD) Dextrose/Water (DEXTROSE 10% IN WATER) 250 ML ASDIR PRN IV (CKD) Glucagon (GLUCAGON) 1 MG ASDIR PRN IM Hydrocodone Bitart/Acetaminophen (NORCO 10/325) 1 TAB Q4H PRN PRN PO Hydromorphone HCl (DILAUDID) 1 MG Q6H PRN PRN IV Lidocaine (LIDODERM) 1 PATCH DAILY TOPICAL Insulin Human Lispro (HUMALOG) 5 UNIT AC SUBQ Miscellaneous Information (VANCOMYCIN PHARMACY TO DOSE) 1 EACH ASDIR IV (CKD) Heparin Sodium (HEPARIN 5000 UNITS/ML) 5,000 UNIT Q8HR SUBQ (DA) Cefepime HCl (MAXIPIME) 1 GM Q6H IV Sodium Chloride (SODIUM CHLORIDE) 10 MLAcetaminophen (TYLENOL) 650 MG Q6H PRN PRN PO Bisacodyl (DULCOLAX) 10 MG DAILY PRN PRN RECTAL Docusate Sodium (COLACE) 100 MG Q12H PRN PRN PO Hydralazine HCl (APRESOLINE) 10 MG Q6H PRN PRN IV Ondansetron HCl (ZOFRAN) 4 MG Q6H PRN PRN IV Physical ExamGeneral appearance: alert, awake, no acute distressPsych: alert, normal affect, oriented x 3HEENT: anicteric, sclera clearNeck: supple, no JVDCardiovascular: S1/S2, no murmurRespiratory: aerating well, clear bilaterallyAbdomen: bowel sounds present, non-distended, soft, non-tenderSkin: no rash, R BKA wrapped healing. L ankle/foot wrapped with kerlixMusculoskeletal - general: Musculoskeletal - general: swelling (LLE, calve NT, homans neg), BUE 5/5, LLE4/5, R hip 3-Neuro/DIRECTOR OPERATING ROOM: alert, oriented X 3, CNII-XII intact ResultsFindings/Data:Laboratory Tests: 09/08 09/08 09/07 09/07 09/07 0616 0615 2238 2110 1554Chemistry Sodium (134 - 147 mEq/L) 135 Potassium [...] 110 MG/DL) 101 135 H 127 H 112 H Calcium (8.0 - 10.5 mg/dL) 8.1 Magnesium (1.80 - 2.40 mg/dL) 1.58 L Total Creatine Kinase (46 - 171 Units/L) 22 L Albumin (3.4 - 5.0 g/dL) 1.30 L Prealbumin (16.0 - 40.0 mg/dL) < 5.0 LHematology WBC (4.5 - 11.0 x10 3/uL) 9.1 [...] (Auto) (14.0 - 32.0 %) 13.7 L [place] % (Auto) (4.8 - 9.0 %) 7.2 Eos % (Auto) (0.3 - 3.7 %) 4.8 H Baso % (Auto) (0.0 - 2.0 %) 0.3 Neut # (Auto) (2.0 - 7.6 x10 3/uL) 6.64 Lymph # (Auto) (1.0 - 3.8 x10 3/uL) 1.24 [place] # (Auto) (0.1 - 0.8 x10 3/uL) 0.65 Eos # (Auto) (0.0 - 0.2 x10 3/uL) 0.43 H Baso # (Auto) (0.0 - 0.2 x10 3/uL) 0.03 Abs Immat Gran (auto) (0.00 - 0.03 0.06 Hx10 3/uL) Add Manual Diff NO Immature Gran % (0.0 - 2.0 %) 0.7 Nucleated RBC % (0 - 0 %) 0.0 Nucleated RBCs # (Man) (0.0 - 0.1 0.00x10 3/uL) 09/07 09/07 1137 1127 Chemistry POC Glucose (70 - 110 MG/DL) 51 L 42 L Radiology data:Recent Impressions:RADIOLOGY - XR ABDOMEN 1V (KUB) 09/04 1648 Report Impression - Status: SIGNED Entered: 09/04/2022 1757 IMPRESSION: Benign appearance of the abdomen.Impression By: [email or web address] - Roger Parra M.D.ULTRASOUND - DUP VEIN UNI/LTD 09/05 1146 Report Impression - Status: SIGNED Entered: 09/05/2022 1333 IMPRESSION: 1. No evidence of deep vein thrombosis. 2. Complex heterogeneous hypoechoic fluid collection in the left calf region measuring 8.4 x 2.8 x 2.5 cm; there is no internal vascularity or peripheral hyperemia. May represent a hematoma.Impression By: [email or web address] - Mert Ga M.D.RADIOLOGY - XR CHEST 1 V 09/05 1432 Report Impression - Status: SIGNED Entered: 09/05/2022 1515 IMPRESSION: Minimal bibasilar pulmonary opacitiesImpression By: Yared Mares M.D. Diagnosis, Assessment PlanProblem List/A P: 1. Gangrene of right foot 2. Below-knee amputation of right lower extremity 3. MRSA bacteremia 4. Cellulitis of foot, right 5. DKA (diabetic ketoacidosis) 6. Hyperglycemia 7. ERIKA (acute kidney injury) 8. Postoperative pain 9. Acute anemia 10. Prostate abscess 11. Impaired functional mobility, balance, gait, and endurance Free Text A P:Assessment:Severe Gas gangrene right foot and right ankle associated with osteomyelitis andnecrotizing fasciitisS/p surgical debridement and washout4/6: S/p right BKA-Dr. Greenberggnificant impairment in self-care, ADLs and functional mobilityImpaired mobility and gaitAcute postoperative pain right BKADiabetic polyneuropathyDKA, DM 2, poorly controlled, A1c greater than 14PADMRSA bacteremia/sepsis-treated on acuteAKISevere hyponatremia-resolvedHTNAcute on chronic anemia requiring multiple transfusions, possible GI bleedLeft calf hematomaEdema and clinical arthritis left ankleEarly decubitus to left heel/DTI dorsal left midfootProstatic abscess 08/26: S/p transrectal ultrasound aspiration of abscess and transurethral resection of prostate and unroofing of abscessEcho: EF 55-59%, grade 1 diastolic dysfunction09/02: JIMENA negative for vegetationMRSA OF NARES09/08:s/p EGD and colonoscopy. EGD showed mild gastritis. Colonoscopy showed rectal polyp that was resected by snare. Plan:-PLOF: Independent with transfers and gait-Amputee rehab program-Continue PT and OT-15/12 rehabilitation nursing care.-Case management for safe discharge planning.-Decubitus prevention-Early decubitus to left heel/DTI dorsal left midfoot-zinc oxide to the foot, foam, offloading, podiatry managing-DVT prophylaxis-subcutaneous heparin-Strict fall and safety precautions-Work on bed mobility, transfer training, ADLs, pre-gait and gait exercises-Increase endurance and strength-Monitor pain with therapies-OOB to chair-Monitor p.o. intake and nutrition, albumin 1.3, prealbumin less than 5, dietaryconsultation, protein supplements to promote healing-Continue antibiotics per ID-Tight glycemia control- endocrine on board, insulin adjustments-Endocrinology, ID, podiatry, cardiology, IM consulted-Pain management adjusting pain medications-Anemia, patient required multiple units of PRBCs on acute, FOBT positive-IV Protonix-consult GI-serial H H-no evidence of gross bleeding-discussed with Dr. TrinidadJmtvbynl-Dqwpglnslxrk-uevwgfxcz yuxrrtzr-NGH-syieqa-CW Senokot and MiraLAX, DSP-Right SFQ-bfexxgo-fqoujrnp resolved, dressings changed qanqf-fdyjtnd-tdhycppr RKB-UPGR-CXGP OF NARES on Bactroban protocol-LLE edema-venous Doppler with complex heterogeneous hypoechoic fluid collectionin the left calf region measuring 8.4, 2.8, 2.5 cm suggestive of hematoma. HoldLasix x3 days. Joan wrap calf-Generalized edema-some shortness of breath and abdominal distention-cardiology gave a dose of IV Lasix-monitor urine output, daily weights-Chest x-ray with minimal basilar pulmonary wmqwsynui-Lhqrrd-ujujqknpug 8.5, transfused 2 units of PRBC on 09/05-09/08: s/p EGD and colonoscopy. EGD showed mild gastritis. Colonoscopy showed rectal polyp that was resected by snare. Anemia likely secondary to chronic kidney disease. Consult renal.-Chemistries good, creatinine 1.4, magnesium 1.58-Advance therapies as tolerated-discussed treatment plan with patient and -Patient continues to perform well with therapies. Patient is highly motivated but requires rest breaks due to becoming easily fatigued. Patient working on sliding board and stand pivot transfers-Team conference Progress: Pt. PERFORMED SCOOTPIVOT TRANSFER TO WITH SBA FOR SAFETY. Pt. INSTRUCTED ON WC PUSH UPS FOR STRENGTHENING, 3x5,UEs. Pt. INSTRUCTED ON SIT TO STAND AT // WITH MOD A TO MAX A. Pt. LEFT IN WC AT END OF Tx. AND EDUCATED ON IMPORTANCE OF STAYING OUT OF BED WHEN POSSIBLE. Pt. LEFT WITH ALL NEEDS IN REACH. Pt. PERFORMED SUPINE TO SIT IN BED WITHIND, SLIDE BOARD TRANSFER TO WITH SBA. Pt. PROPELLED FOR 200 FT 3 TIMES FOR ENDURANCE TRAINING, WITH SBA. PM RPlease see team note.Plan and goals discussed with the patient. I agree with the teams findingELOS- []DC-DME- Total time 33 minutes greater than 50% of the time spent examining patient, leftcalf hematoma, anemia, EGD and colonoscopy, hold anticoagulants for a few days, amputee rehab plan of care, goals, therapies, progress, labs, medications. EMR and MAR is reviewed. All questions answeredOrders: Procedure Date/time Status PHYSICIAN CONSULT 09/08 1540 Active PREALBUMIN 09/08 0515 Complete CREATINE KINASE (CK) 09/08 06 Complete ALBUMIN 09/08 614 Complete OT ADL 09/08 UNK Complete Consultants: cardiology, endocrinology, hospitalist, infectious disease, podiatryRehab attestation:Face to face exam completed. Treatment plan discussed with patient. Meets continued stay criteria. Agree with interdisciplinary treatment plan. at 1541 RPT #:[id number] OF REPORTPRProgress [id number]:57:00G.[id number] able for patient leqvBUUILMWEKNJTOE6204-37-98Y34:42:15 [facility] 2022-09-08 06:36:00 [id number] luzgOQfEuev30UTqRMp4+/JlvC8f+ DbdUgcyp636+s9Mx7iAFahedu7S1224-48-03M28:36:00 [facility] HospitalHospitalist Progress NoteREPORT#:[id number] REPORT STATUS: SignedDATE:09/08/22 TIME: 06 PATIENT: KARMA ROWLAND UNIT #: [id number]#: [id number] [address] AGE: 56 SEX: M ATTEND: Mj Vences [facility] AUTHOR: Wilbert Ramires MD * ALL edits or amendments must be made on the electronic/computer document * SubjectiveChief complaint:admitted to rehab. participating with therapy Review of SystemsAll systems rev neg: except as noted Objective GeneralVS/I O:Vital Signs: Date Time Temp Pulse Resp B/P B/P Pulse O2 O2 Flow FiO2 Mean Ox Delivery Rate 09/07 2358 91 160/78 105 09/075 98.8 91 14 163/82 108.9 95 09/07 2215 98 158/88 111 09/08 1999 97.3 87 17 175/88 116.8 97 09/07 [...] Output, Urine 300 PATIENT WEIGHT: Weight (lb): 165Weight (oz): 5.55Weight (kg): 75.000 Medications:Active Meds + DC'd Last 24 HrsPolyethylene Glycol/Electrolytes (GOLYTELY) 2,000 ML ONCE ONE PO Insulin Glargine (Lantus/Semglee) 5 UNIT BEDTIME SUBQ Polyethylene Glycol/Electrolytes (GOLYTELY) 2,000 ML ONCE ONE PO (DC) Vancomycin HCl (VANCOMYCIN HCL) 750 MG ONCE ONE IV (DC) Sodium Chloride (SODIUM CHLORIDE 0.9%) 250 MLInsulin Glargine (Lantus/Semglee) 7 UNIT BEDTIME SUBQ (DC) Furosemide (LASIX 20MG INJ) 20 MG BLOOD-DOSE BETWEEN IV (CKD) Sodium Chloride (SODIUM CHLORIDE) 10 ML ASDIR IV Furosemide (LASIX) 20 MG DAILY PO Pantoprazole Sodium (PROTONIX) 40 MG Q12HR IV Polyethylene Glycol (MIRALAX) 17 GM DAILY PO Sennosides (Senna Lax 8.6 MG TABLET) 8.6 MG DAILY PO Sodium Chloride (SODIUM CHLORIDE) 10 ML ASDIR PRN IV Amitriptyline HCl (ELAVIL) 25 MG BEDTIME PO Mupirocin (BACTROBAN 2% 22 GM OINTMENT) 1 APPLIC BID NASAL Zinc Oxide (ZINC OXIDE 30 GM OINTMENT) 1 APPLIC DAILY TOPICAL Sterile Water (WATER FOR IRRIGATION) DRESSING CHANGE ASDIR PRN IRR Insulin Human Lispro (HUMALOG) 0 AC HS SUBQ Dextrose/Water (DEXTROSE 10% IN WATER) 125 ML ASDIR PRN IV (CKD) Dextrose/Water (DEXTROSE 10% IN WATER) 250 ML ASDIR PRN IV (CKD) Glucagon (GLUCAGON) 1 MG ASDIR PRN IM Hydrocodone Bitart/Acetaminophen (NORCO 10/325) 1 TAB Q4H PRN PRN PO Hydromorphone HCl (DILAUDID) 1 MG Q6H PRN PRN IV Lidocaine (LIDODERM) 1 PATCH DAILY TOPICAL Insulin Human Lispro (HUMALOG) 5 UNIT AC SUBQ Miscellaneous Information (VANCOMYCIN PHARMACY TO DOSE) 1 EACH ASDIR IV (CKD) Heparin Sodium (HEPARIN 5000 UNITS/ML) 5,000 UNIT Q8HR SUBQ (DA) Cefepime HCl (MAXIPIME) 1 GM Q6H IV Sodium Chloride (SODIUM CHLORIDE) 10 MLAcetaminophen (TYLENOL) 650 MG Q6H PRN PRN PO Bisacodyl (DULCOLAX) 10 MG DAILY PRN PRN RECTAL Docusate Sodium (COLACE) 100 MG Q12H PRN PRN PO Hydralazine HCl (APRESOLINE) 10 MG Q6H PRN PRN IV Ondansetron HCl (ZOFRAN) 4 MG Q6H PRN PRN IV Physical ExamGeneral appearance: alert, awake, orientedHead/Eyes: atraumatic, clear corneaNeck: full range of motion, non-tenderCardiovascular: normal capillary refill, normal heart sounds, regular rate rhythmRespiratory: aerating well, clear to auscultationAbdomen: non-tender, normal bowel soundsGenitourinary: no flank painExtremities: moves all, normal capillary refillMusculoskeletal: normal inspection, painless range of motionNeuro/DIRECTOR OPERATING ROOM: alert, oriented X 3, 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 Considered stroke alert: noSkin: dry, intactPsychiatry: normal affect, normal judgment/insight ResultsFindings/Data:Laboratory Tests 09/08 09/07 09/07 09/07 09/07 0616 2238 2110 1554 1137 Chemistry POC Glucose (70 - 110 MG/DL) 101 135 H 127 H 112 H 51 L 09/07 1127 Chemistry POC Glucose (70 - 110 MG/DL) 42 L Diagnosis, Assessment PlanConsultants: cardiology, endocrinology, hospitalist, infectious disease, podiatry Free Text DxA P NotesFree text DxA P notes:Gangrene of right foot s/p Below- knee amputation Prostate abscessMRSA bacteremiaHx of Diabetes, Diabetic neuropathyHTN PLANS: Continue with ABx as dierected- currently on Daptomycin and CefepimeContinue with PT/OT per primary Fall precautionsNutritional supportpain controlfall precautionsbowel regimenWound care as directedHepain PPXContinue with supportive / care follow hgb closely and transfuse as neededblood sugars dipping down - endo followingBP trending up, add BP meds and follow at 0559 RPT #:[id number] OF REPORTPRProgress [id number]:36:00G.[id number] able for patient eedyKEJPXDKZGUKOVM3154-95-12G62:59:53 [facility] 2022-09-08 06:22:00 [id number] t6bXi2dhs6kZwEJw1r3ebE9JgQ21474-46-02Y80:22:00 [facility] ([facility])Pain Management Progress NoteREPORT#:[id number] REPORT STATUS: SignedDATE:09/08/22 TIME: 621 PATIENT: KARMA ROWLAND UNIT #: [id number]#: [id number] [address] [birth year] AGE: 56 SEX: M ATTEND: Mj Vences [facility] AUTHOR: Charlie Quiroga RESEARCH MANUFACTURING OPERATOR * ALL edits or amendments must be made on the electronic/computer document * Charlie Quiroga 09/08/22 0622:SubjectiveChief complaint:Patient seen and examined. Chart/MAR reviewed. Patient slept well last night. Had adequate pain coverage at todays visit and yesterday. No side effects noted with the pain medications. Pending an EGD today. Will reduce IV pain medication some. Patient being seen for Acute postoperative pain, right foot and anklegangrene, requiring BKA, Constipation Patient is still requiring medications to help with managing currentproblems. Patient is requiring IV narcotics to help manage breakthrough pain No fever/chills, chest pain, orthopnea, nausea/vomiting, pruritus, orhallucinations.14 point ROS undertaken unremarkable except as noted Objective GeneralVS/I O:Vital Signs Date Temp Pulse Resp B/P B/P Mean Pulse Ox FiO2 09/07 97.3-98.8 87-98 - 148-177/74-90 98.6-118.8 95-98 Last Documented: Result Date Time B/P 160/78 09/07 2357 B/P Mean 105 09/07 2358 Pulse 91 09/07 2358 Pulse Ox 95 09/07 2335 Temp 98.8 09/07 2335 Resp 14 09/07 2335 O2 Delivery Room air 09/06 1545 24 hour I O ending at 0700: 09/08 0700 09/07 1900 Intake Total 2000 Output Total 300 Balance 1700 Intake, Oral 2000 Number 0 Incontinent Voids Number Voids 0 Output, Urine 300 PATIENT WEIGHT: Weight (lb): 165Weight (oz): 5.55Weight (kg): 75.000 Medications:Active Meds + DC'd Last 24 HrsPolyethylene Glycol/Electrolytes (GOLYTELY) 2,000 ML ONCE ONE PO Insulin Glargine (Lantus/Semglee) 5 UNIT BEDTIME SUBQ Polyethylene Glycol/Electrolytes (GOLYTELY) 2,000 ML ONCE ONE PO (DC) Vancomycin HCl (VANCOMYCIN HCL) 750 MG ONCE ONE IV (DC) Sodium Chloride (SODIUM CHLORIDE 0.9%) 250 MLInsulin Glargine (Lantus/Semglee) 7 UNIT BEDTIME SUBQ (DC) Furosemide (LASIX 20MG INJ) 20 MG BLOOD-DOSE BETWEEN IV (CKD) Sodium Chloride (SODIUM CHLORIDE) 10 ML ASDIR IV Furosemide (LASIX) 20 MG DAILY PO Pantoprazole Sodium (PROTONIX) 40 MG Q12HR IV Polyethylene Glycol (MIRALAX) 17 GM DAILY PO Sennosides (Senna Lax 8.6 MG TABLET) 8.6 MG DAILY PO Sodium Chloride (SODIUM CHLORIDE) 10 ML ASDIR PRN IV Amitriptyline HCl (ELAVIL) 25 MG BEDTIME PO Mupirocin (BACTROBAN 2% 22 GM OINTMENT) 1 APPLIC BID NASAL Zinc Oxide (ZINC OXIDE 30 GM OINTMENT) 1 APPLIC DAILY TOPICAL Sterile Water (WATER FOR IRRIGATION) DRESSING CHANGE ASDIR PRN IRR Insulin Human Lispro (HUMALOG) 0 AC HS SUBQ Dextrose/Water (DEXTROSE 10% IN WATER) 125 ML ASDIR PRN IV (CKD) Dextrose/Water (DEXTROSE 10% IN WATER) 250 ML ASDIR PRN IV (CKD) Glucagon (GLUCAGON) 1 MG ASDIR PRN IM Hydrocodone Bitart/Acetaminophen (NORCO 10/325) 1 TAB Q4H PRN PRN PO Hydromorphone HCl (DILAUDID) 1 MG Q6H PRN PRN IV Lidocaine (LIDODERM) 1 PATCH DAILY TOPICAL Insulin Human Lispro (HUMALOG) 5 UNIT AC SUBQ Miscellaneous Information (VANCOMYCIN PHARMACY TO DOSE) 1 EACH ASDIR IV (CKD) Heparin Sodium (HEPARIN 5000 UNITS/ML) 5,000 UNIT Q8HR SUBQ (DA) Cefepime HCl (MAXIPIME) 1 GM Q6H IV Sodium Chloride (SODIUM CHLORIDE) 10 MLAcetaminophen (TYLENOL) 650 MG Q6H PRN PRN PO Bisacodyl (DULCOLAX) 10 MG DAILY PRN PRN RECTAL Docusate Sodium (COLACE) 100 MG Q12H PRN PRN PO Hydralazine HCl (APRESOLINE) 10 MG Q6H PRN PRN IV Ondansetron HCl (ZOFRAN) 4 MG Q6H PRN PRN IV Physical ExamGeneral appearance: alert, awake, oriented, no respiratory distressHead/eyes: atraumatic, EOMI, normocephalic, normal conjunctiva/sclera, PERRLAENT: normal ear left, normal ear right, normal nose, normal pharynx, moist mucosal membranesNeck: full range of motion, no lymphadenopathy, supple/no meningismusCardiovascular: regular rate rhythmRespiratory: clear to auscultation, no distress, aerating wellAbdomen: soft, non-tender, no distention, active bowel sounds in all quarants. Abdomen quadrantsLLQ normal bowel sounds, LUQ normal bowel sounds, RLQ normal bowel sounds, RUQ normal bowel soundsExtremities: moves all, no edema, pedal pulsesNeuro/DIRECTOR OPERATING ROOM: 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, no sensory deficits, CNII-XII grossly intact Considered stroke alert: noSkin: dryPsychiatry: normal affect ResultsFindings/data:Laboratory Tests: 09/07 09/07 09/07 09/07 09/07 2238 2110 1554 1137 1127 Chemistry POC Glucose (70 - 110 MG/DL) 135 H 127 H 112 H 51 L 42 L Diagnosis, Assessment PlanFree text A P:A/P:Patient is a 56 year old male who presents with: Recent prostate abscess-Status post TURP with unroofing of abscess-IV antibiotics with vancomycin until 09-24-2022 Acute postoperative pain, right foot and ankle gangrene, requiring BKA-Patient is at risk for further amputations or loss of limb due to comorbid conditions-Status post right BKA 08/28/2022-Tylenol 650 mg p.o. every 6 hours as needed pain scale 1 3-Sheldon 10/325 1 tablet p.o. every 4 hours as needed pain scale 4 10-reduce Dilaudid 0.5 mg IV every 6 hours as needed pain scale 7 10, second line therapy-patient will require close monitoring while using IV narcotics for any deleterious effect-Lidoderm patch to left ankle daily-IV antibiotics with vancomycin until 09-24-2022-Local wound care-manageable Diabetic peripheral neuropathy-patient is based on adrenal insufficiency-amitriptyline 25mg PO QHS-manageable Uncontrolled diabetes, diabetes with complications, recent DKA-Hemoglobin A1c 13.4-Recent right foot and ankle gangrene-Insulin sliding scale, FSBS, good glycemic control Hypertension-We will monitor hypertension and tachycardia due to pain, and hypotension as well as bradycardia secondary over sedation with narcotics-Hydralazine as needed Elevated LFTs-08/20/22-AST 51, ALT 22-09/03/2022-AST 15, ALT 7-Patient will require close monitoring since he is using narcotics with Tylenol Impaired functional mobility, balance, gait, and endurance-PT/OT Constipation-We will monitor while utilizing opioid narcotic medications.-Adequate fluid intake also discussed.-Colace 100 mg p.o. twice daily as needed-Dulcolax 10 mg rectally daily as needed-Senna lax 8.6mg daily-Miralax 17gm daily-manageable Disposition: Past Medical History: Prostate abscess, right foot foot and ankle gangrene, diabetes, hypertension, hyperlipidemiaPast Surgical History: TURP, right BKAFamily History: NoncontributorySocial History: Denies tobacco, alcohol, or drug useAllergies: NKDA Patient has failed conservative medical therapy.Patient will require monitoring while utilize narcotic medications for any adverse effects, and will adjust as neededPlan of care discussed with patient and nurseAll diagnostics of last 24 hours been reviewed. Risks versus benefits of opioid medications were reviewed to include, but not limited to respiratory depression, accidental overdose, altered mental status, sudden , constipation which could result in bowel obstruction, seizures, withdrawal, dependency addiction, risk for falls. Case discussed with Dr Ng whom agrees. Thank you for the consultation. [place] DISABILITY HEARING OFFICER:-database searched, no information found Kingsley Ng 09/26/22 1257:Attestations Physician AttestationAgree w/findings plan:The patient was seen and examined by Charlie Quiroga. I personally developed thecare plan, which was continued by the mid-level provider. I was immediately available. at 1440 at 1259 RPT #:[id number] OF REPORTPRProgress [id number]:22:00G.[id number] able for patient [id number]:40:23 [facility] 2022-09-07 19:10:00 [id number] Ype/DmwU8+TzrsDTQfcTn/2ajdI6827-39-06O94:10:00 [facility] ([facility])Pain Management Progress NoteREPORT#:[id number] REPORT STATUS: SignedDATE:09/07/22 TIME: 1909 PATIENT: KARMA ROWLAND UNIT #: [id number]#: [id number] [address] [birth year] AGE: 56 SEX: M ATTEND: Mj Vences [facility] AUTHOR: Ben Klein * ALL edits or amendments must be made on the electronic/computer document * Ben Klein 09/07/221909:SubjectiveChief complaint:Patient seen and examined. Chart/MAR reviewed. Patient resting comfortably. No acute concerns. Pain control is good today. BKA discomfort is manageable with alternating oral and IV narcotics. No bothersomeneuropathy symptoms, and he is sleeping better. Patient being seen for Acute postoperative pain, right foot and anklegangrene, requiring BKA, Constipation Patient is still requiring medications to help with managing currentproblems. Patient is requiring IV narcotics to help manage breakthrough pain No fever/chills, chest pain, orthopnea, nausea/vomiting, pruritus, orhallucinations.14 point ROS undertaken unremarkable except as noted Objective GeneralVS/I O:Vital Signs Date Temp Pulse Resp B/P B/P Mean Pulse Ox FiO2 09/06-09/07 36.4-36.7 87-93 15-18 148-177/74-90 0.0-118.8 95-98 [...] Urine 1500 1000 PATIENT WEIGHT: Weight (lb): 165Weight (oz): 5.55Weight (kg): 75.000 Medications:Active Meds + DC'd Last 24 HrsPolyethylene Glycol/Electrolytes (GOLYTELY) 2,000 ML ONCE ONE PO Insulin Glargine (Lantus/Semglee) 5 UNIT BEDTIME SUBQ Polyethylene Glycol/Electrolytes (GOLYTELY) 2,000 ML ONCE ONE PO (DC) Vancomycin HCl (VANCOMYCIN HCL) 750 MG ONCE ONE IV (DC) Sodium Chloride (SODIUM CHLORIDE 0.9%) 250 MLInsulin Glargine (Lantus/Semglee) 7 UNIT BEDTIME SUBQ (DC) Furosemide (LASIX 20MG INJ) 20 MG BLOOD-DOSE BETWEEN IV (CKD) Sodium Chloride (SODIUM CHLORIDE) 10 ML ASDIR IV Furosemide (LASIX) 20 MG DAILY PO Pantoprazole Sodium (PROTONIX) 40 MG Q12HR IV Polyethylene Glycol (MIRALAX) 17 GM DAILY PO Sennosides (Senna Lax 8.6 MG TABLET) 8.6 MG DAILY PO Sodium Chloride (SODIUM CHLORIDE) 10 ML ASDIR PRN IV Amitriptyline HCl (ELAVIL) 25 MG BEDTIME PO Mupirocin (BACTROBAN 2% 22 GM OINTMENT) 1 APPLIC BID NASAL Zinc Oxide (ZINC OXIDE 30 GM OINTMENT) 1 APPLIC DAILY TOPICAL Sterile Water (WATER FOR IRRIGATION) DRESSING CHANGE ASDIR PRN IRR Insulin Human Lispro (HUMALOG) 0 AC HS SUBQ Dextrose/Water (DEXTROSE 10% IN WATER) 125 ML ASDIR PRN IV (CKD) Dextrose/Water (DEXTROSE 10% IN WATER) 250 ML ASDIR PRN IV (CKD) Glucagon (GLUCAGON) 1 MG ASDIR PRN IM Hydrocodone Bitart/Acetaminophen (NORCO 10/325) 1 TAB Q4H PRN PRN PO Hydromorphone HCl (DILAUDID) 1 MG Q6H PRN PRN IV Lidocaine (LIDODERM) 1 PATCH DAILY TOPICAL Insulin Human Lispro (HUMALOG) 5 UNIT AC SUBQ Miscellaneous Information (VANCOMYCIN PHARMACY TO DOSE) 1 EACH ASDIR IV (CKD) Heparin Sodium (HEPARIN 5000 UNITS/ML) 5,000 UNIT Q8HR SUBQ (DA) Cefepime HCl (MAXIPIME) 1 GM Q6H IV Sodium Chloride (SODIUM CHLORIDE) 10 MLAcetaminophen (TYLENOL) 650 MG Q6H PRN PRN PO Bisacodyl (DULCOLAX) 10 MG DAILY PRN PRN RECTAL Docusate Sodium (COLACE) 100 MG Q12H PRN PRN PO Hydralazine HCl (APRESOLINE) 10 MG Q6H PRN PRN IV Ondansetron HCl (ZOFRAN) 4 MG Q6H PRN PRN IV Physical ExamGeneral appearance: alert, awake, oriented, no acute distressHead/eyes: atraumatic, EOMI, normocephalic, normal conjunctiva/sclera, PERRLAENT: normal ear left, normal ear right, normal nose, normal pharynx, moist mucosal membranesNeck: full range of motion, no lymphadenopathy, supple/no meningismusCardiovascular: regular rate rhythmRespiratory: clear to auscultation, no distress, aerating wellAbdomen: soft, non-tender, no distention, active bowel sounds in all quarants. Abdomen quadrantsLLQ normal bowel sounds, LUQ normal bowel sounds, RLQ normal bowel sounds, RUQ normal bowel soundsExtremities: moves all, no edema, pedal pulsesNeuro/DIRECTOR OPERATING ROOM: 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, no sensory deficits, CNII-XII grossly intact Considered stroke alert: noSkin: dry, intact, no rashPsychiatry: normal affect ResultsFindings/data:Laboratory Tests: 09/07 09/07 09/07 09/07 09/07 1554 1137 1127 0618 0510 Chemistry Creatinine (0.6 - 1.3 mg/dL) 1.4 H POC Glucose (70 - 110 MG/DL) 112 H 51 L 42 L 135 H Hematology Hgb (12.5 - 16.9 g/dL) 8.4 L Hct (37.5 - 50.7 %) 26.2 L Toxicology Random Vancomycin (mcg/mL) 14.7 09/06 09/06 2226 2108 Chemistry POC Glucose (70 - 110 MG/DL) 192 H 211 H Diagnosis, Assessment PlanFree text A P:A/P:Patient is a 56 year old male who presents with: Past Medical History: Prostate abscess, right foot foot and ankle gangrene, diabetes, hypertension, hyperlipidemiaPast Surgical History: TURP, right BKAFamily History: NoncontributorySocial History: Denies tobacco, alcohol, or drug useAllergies: NKDA Recent prostate abscess-Status post TURP with unroofing of abscess-IV antibiotics with vancomycin until 09-24-2022 Acute postoperative pain, right foot and ankle gangrene, requiring BKA-Patient is at risk for further amputations or loss of limb due to comorbid conditions-Status post right BKA 08/28/2022-Tylenol 650 mg p.o. every 6 hours as needed pain scale 1 3-Sheldon 10/325 1 tablet p.o. every 4 hours as needed pain scale 4 10-Dilaudid 1 mg IV every 6 hours as needed pain scale 7 10, second line therapy-patient will require close monitoring while using IV narcotics for any deleterious effect-Lidoderm patch to left ankle daily-IV antibiotics with vancomycin until 09-24-2022-Local wound care-manageable Diabetic peripheral neuropathy-patient is based on adrenal insufficiency-amitriptyline 25mg PO QHS-manageable Uncontrolled diabetes, diabetes with complications, recent DKA-Hemoglobin A1c 13.4-Recent right foot and ankle gangrene-Insulin sliding scale, FSBS, good glycemic control Hypertension-We will monitor hypertension and tachycardia due to pain, and hypotension as well as bradycardia secondary over sedation with narcotics-Hydralazine as needed Elevated LFTs-08/20/22-AST 51, ALT 22-09/03/2022-AST 15, ALT 7-Patient will require close monitoring since he is using narcotics with Tylenol Impaired functional mobility, balance, gait, and endurance-PT/OT Constipation-We will monitor while utilizing opioid narcotic medications.-Adequate fluid intake also discussed.-Colace 100 mg p.o. twice daily as needed-Dulcolax 10 mg rectally daily as needed-manageable Patient has failed conservative medical therapy.Patient will require monitoring while utilize narcotic medications for any adverse effects, and will adjust as neededPlan of care discussed with patient and nurseAll diagnostics of last 24 hours been reviewed. Risks versus benefits of opioid medications were reviewed to include, but not limited to respiratory depression, accidental overdose, altered mental status, sudden , constipation which could result in bowel obstruction, seizures, withdrawal, dependency addiction, risk for falls. Case discussed with Dr Ng whom agrees. Thank you for the consultation. [place] [employer] OFFICER:-database searched, no information found Kingsley Ng 09/24/22 1631:Attestations Physician AttestationAgree w/findings plan:The patient was seen and examined by Ben Klein. I personally developed the care plan, which was continued by the mid-level provider. I was immediately available. at 1911 at 1637 RPT #:[id number] OF REPORTPRProgress dqrx0103-91-09M82:10:00G.YKVG10911315-0715JGMfeva able for patient ofgrJARDJWPVXXPOYB8027-42-10M40:11:51 [facility] 2022-09-07 16:24:00 [id number] HOPRdTV4TjXnMPG3EdjikVDshly4s pDkIumScem3quOmugfUfpciITQi6190-61-28X88:24:00 [facility] ([facility])Endocrinology Progress NoteREPORT#:[id number] REPORT STATUS: SignedDATE:09/07/22 TIME: 1624 PATIENT: KARMA ROWLAND UNIT #: [id number]#: [id number] [address] [birth year] AGE: 56 SEX: M ATTEND: Mj Vences MDADM AUTHOR: Braxton Chapin MD * ALL edits or amendments must be made on the electronic/computer document * SubjectivePatient reports: no complaints Objective GeneralVS:Last Documented: Result Date Time Pulse Ox 98 09/07 1556 B/P 177/90 09/07 1556 B/P Mean 118.8 09/07 1556 Temp 36.4 09/07 1556 Pulse 93 09/07 1556 Resp 15 09/07 1556 O2 Delivery Room air 09/06 1545 PATIENT WEIGHT: Weight (lb): 165Weight (oz): 5.55Weight (kg): 75.000 Medications:Active Meds + DC'd Last 24 HrsPolyethylene Glycol/Electrolytes (GOLYTELY) 2,000 ML ONCE ONE PO Polyethylene Glycol/Electrolytes (GOLYTELY) 2,000 ML ONCE ONE PO Vancomycin HCl (VANCOMYCIN HCL) 750 MG ONCE ONE IV (DC) Sodium Chloride (SODIUM CHLORIDE 0.9%) 250 MLInsulin Glargine (Lantus/Semglee) 7 UNIT BEDTIME SUBQ Furosemide (LASIX 20MG INJ) 20 MG BLOOD-DOSE BETWEEN IV (CKD) Sodium Chloride (SODIUM CHLORIDE) 10 ML ASDIR IV Furosemide (LASIX) 20 MG DAILY PO Pantoprazole Sodium (PROTONIX) 40 MG Q12HR IV Polyethylene Glycol (MIRALAX) 17 GM DAILY PO Sennosides (Senna Lax 8.6 MG TABLET) 8.6 MG DAILY PO Sodium Chloride (SODIUM CHLORIDE) 10 ML ASDIR PRN IV Amitriptyline HCl (ELAVIL) 25 MG BEDTIME PO Mupirocin (BACTROBAN 2% 22 GM OINTMENT) 1 APPLIC BID NASAL Zinc Oxide (ZINC OXIDE 30 GM OINTMENT) 1 APPLIC DAILY TOPICAL Sterile Water (WATER FOR IRRIGATION) DRESSING CHANGE ASDIR PRN IRR Insulin Human Lispro (HUMALOG) 0 AC HS SUBQ Dextrose/Water (DEXTROSE 10% IN WATER) 125 ML ASDIR PRN IV (CKD) Dextrose/Water (DEXTROSE 10% IN WATER) 250 ML ASDIR PRN IV (CKD) Glucagon (GLUCAGON) 1 MG ASDIR PRN IM Vancomycin HCl (VANCOMYCIN HCL) 1,000 MG Q24H IV (DC) Sodium Chloride (SODIUM CHLORIDE 0.9%) 250 MLHydrocodone Bitart/Acetaminophen (NORCO 10/325) 1 TAB Q4H PRN PRN PO Hydromorphone HCl (DILAUDID) 1 MG Q6H PRN PRN IV Lidocaine (LIDODERM) 1 PATCH DAILY TOPICAL Insulin Human Lispro (HUMALOG) 5 UNIT AC SUBQ Miscellaneous Information (VANCOMYCIN PHARMACY TO DOSE) 1 EACH ASDIR IV (CKD) Heparin Sodium (HEPARIN 5000 UNITS/ML) 5,000 UNIT Q8HR SUBQ (DA) Cefepime HCl (MAXIPIME) 1 GM Q6H IV Sodium Chloride (SODIUM CHLORIDE) 10 MLAcetaminophen (TYLENOL) 650 MG Q6H PRN PRN PO Bisacodyl (DULCOLAX) 10 MG DAILY PRN PRN RECTAL Docusate Sodium (COLACE) 100 MG Q12H PRN PRN PO Hydralazine HCl (APRESOLINE) 10 MG Q6H PRN PRN IV Ondansetron HCl (ZOFRAN) 4 MG Q6H PRN PRN IV Physical ExamGeneral appearance: alert, awake Diagnosis, Assessment PlanHospital course to date:Laboratory Tests: 09/07 09/07 09/07 09/07 09/07 1554 1137 1127 0618 0510 Chemistry Creatinine (0.6 - 1.3 mg/dL) 1.4 H POC Glucose (70 - 110 MG/DL) 112 H 51 L 42 L 135 H Hematology Hgb (12.5 - 16.9 [...] 1739 Occult Blood - COMP STOOL Recent Impressions:RADIOLOGY - XR ABDOMEN 1V (KUB) 09/04 1648 Report Impression - Status: SIGNED Entered: 09/04/2022 1757 IMPRESSION: Benign appearance of the abdomen.Impression By: [email or web address] - Roger Parra M.D.ULTRASOUND - [facility] 09/05 1146 Report Impression - Status: SIGNED Entered: 09/05/2022 1333 IMPRESSION: 1. No evidence of deep vein thrombosis. 2. Complex heterogeneous hypoechoic fluid collection in the left calf region measuring 8.4 x 2.8 x 2.5 cm; there is no internal vascularity or peripheral hyperemia. May represent a hematoma.Impression By: [email or web address] - Mert Ga M.D.RADIOLOGY - XR CHEST 1 V 09/05 1432 Report Impression - Status: SIGNED Entered: 09/05/2022 1515 IMPRESSION: Minimal bibasilar pulmonary opacitiesImpression By: Yared Mares M.D. Laboratory Tests: 09/04 09/04 09/04 09/04 09/04 [...] COLB STOOL 1.Diabetes mellitus type 2 uncontrolled complications.2. Status post right BKA3. Status post gangrene of the right foot.4. Sepsis5. Prostate abscess.6. AnemiaBlood sugar 135-51 mg/dL.H/H 8.6/26.1Adjust insulin dose.PT and OT. at 1625 RPT #:[id number] OF REPORTPRProgress ehma8003-74-03N30:24:00G.[id number] able for patient ilstSQWOVNFDPEBXXS1449-69-19Q35:26:05 [facility] 2022-09-07 13:01:00 [id number] GuXHQ2zcNVM4NQqV1lC/gZeqbYpOJ DxcM1BWGSrfnB14pgtk4c36kLBT0913-68-37J58:01:00 [facility] ([facility])Hospitalist Progress NoteREPORT#:[id number] REPORT STATUS: SignedDATE:09/07/22 TIME: 1301 PATIENT: KARMA ROWLAND UNIT #: [id number]#: [id number] [address] [birth year] AGE: 56 SEX: M ATTEND: Mj Vences [facility] AUTHOR: Musa Enriquez MD * ALL edits or amendments must be made on the electronic/computer document * SubjectiveChief complaint:admitted to rehab. participating with therapyHPI:no new issues Review of SystemsAll systems rev neg: except as noted Objective GeneralVS/I O:Vital Signs: Date Time Temp Pulse Resp B/P B/P Pulse O2 O2 Flow FiO2 Mean Ox Delivery Rate 09/07 1129 [...] Urine 1500 1000 PATIENT WEIGHT: Weight (lb): 165Weight (oz): 5.55Weight (kg): 75.000 Medications:Active Meds + DC'd Last 24 HrsPolyethylene Glycol/Electrolytes (GOLYTELY) 2,000 ML ONCE ONE PO Polyethylene Glycol/Electrolytes (GOLYTELY) 2,000 ML ONCE ONE PO Vancomycin HCl (VANCOMYCIN HCL) 750 MG ONCE ONE IV (DC) Sodium Chloride (SODIUM CHLORIDE 0.9%) 250 MLInsulin Glargine (Lantus/Semglee) 7 UNIT BEDTIME SUBQ Furosemide (LASIX 20MG INJ) 20 MG BLOOD-DOSE BETWEEN IV (CKD) Sodium Chloride (SODIUM CHLORIDE) 10 ML ASDIR IV Furosemide (LASIX) 20 MG DAILY PO Pantoprazole Sodium (PROTONIX) 40 MG Q12HR IV Polyethylene Glycol (MIRALAX) 17 GM DAILY PO Sennosides (Senna Lax 8.6 MG TABLET) 8.6 MG DAILY PO Sodium Chloride (SODIUM CHLORIDE) 10 ML ASDIR PRN IV Amitriptyline HCl (ELAVIL) 25 MG BEDTIME PO Mupirocin (BACTROBAN 2% 22 GM OINTMENT) 1 APPLIC BID NASAL Zinc Oxide (ZINC OXIDE 30 GM OINTMENT) 1 APPLIC DAILY TOPICAL Sterile Water (WATER FOR IRRIGATION) DRESSING CHANGE ASDIR PRN IRR Insulin Human Lispro (HUMALOG) 0 AC HS SUBQ Dextrose/Water (DEXTROSE 10% IN WATER) 125 ML ASDIR PRN IV (CKD) Dextrose/Water (DEXTROSE 10% IN WATER) 250 ML ASDIR PRN IV (CKD) Glucagon (GLUCAGON) 1 MG ASDIR PRN IM Vancomycin HCl (VANCOMYCIN HCL) 1,000 MG Q24H IV (DC) Sodium Chloride (SODIUM CHLORIDE 0.9%) 250 MLHydrocodone Bitart/Acetaminophen (NORCO 10/325) 1 TAB Q4H PRN PRN PO Hydromorphone HCl (DILAUDID) 1 MG Q6H PRN PRN IV Lidocaine (LIDODERM) 1 PATCH DAILY TOPICAL Insulin Human Lispro (HUMALOG) 5 UNIT AC SUBQ Miscellaneous Information (VANCOMYCIN PHARMACY TO DOSE) 1 EACH ASDIR IV (CKD) Heparin Sodium (HEPARIN 5000 UNITS/ML) 5,000 UNIT Q8HR SUBQ (DA) Cefepime HCl (MAXIPIME) 1 GM Q6H IV Sodium Chloride (SODIUM CHLORIDE) 10 MLAcetaminophen (TYLENOL) 650 MG Q6H PRN PRN PO Bisacodyl (DULCOLAX) 10 MG DAILY PRN PRN RECTAL Docusate Sodium (COLACE) 100 MG Q12H PRN PRN PO Hydralazine HCl (APRESOLINE) 10 MG Q6H PRN PRN IV Ondansetron HCl (ZOFRAN) 4 MG Q6H PRN PRN IV Physical ExamHead/Eyes: atraumatic, clear corneaNeck: full range of motion, non-tenderCardiovascular: normal capillary refill, normal heart sounds, regular rate rhythmRespiratory: aerating well, clear to auscultationAbdomen: non-tender, normal bowel soundsGenitourinary: no flank painExtremities: moves all, normal capillary refillMusculoskeletal: normal inspection, painless range of motionNeuro/DIRECTOR OPERATING ROOM: alert, oriented X 3, 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 Considered stroke alert: noSkin: dry, intactPsychiatry: normal affect, normal judgment/insight ResultsFindings/Data:Laboratory Tests 09/07 09/07 09/07 09/07 09/06 1137 1127 0618 0510 2226 Chemistry Creatinine (0.6 - 1.3 mg/dL) 1.4 H POC Glucose (70 - 110 MG/DL) 51 L 42 L 135 H 192 H 09/06 09/06 2108 1547 Chemistry POC Glucose (70 - 110 MG/DL) 211 H 119 H Laboratory Tests 09/07 0510 Hematology Hgb (12.5 - 16.9 g/dL) 8.4 L Hct (37.5 - 50.7 %) 26.2 L Laboratory Tests 09/07 09/06 0510 1553 Toxicology Vancomycin Trough (10.0 - 20.0 mcg/mL) 18.9 Random Vancomycin (mcg/mL) 14.7 Diagnosis, Assessment Plan Free Text DxA P NotesFree text DxA P notes:Gangrene of right foot s/p Below- knee amputation Prostate abscessMRSA bacteremiaHx of Diabetes, Diabetic neuropathy PLANS: Continue with ABx as dierected- currently on Daptomycin and CefepimeContinue with PT/OT per primary Fall precautionsNutritional supportpain controlTight glycemia control- endocrine on board, insulin adjustmentsWound care as directedHepain PPXContinue with supportive / care follow hgb closely and transfuse as needed 09/07/22 sugars low - will monitor HB stable planned for endoscope Doing well continue with pt ot at 1505 RPT #:[id number] OF REPORTPRProgress bboa6689-53-40L35:01:00G.[id number] able for patient hodiCMZTHHAHVLKESV3157-20-06Z20:05:41 [facility] 2022-09-07 10:08:00 [id number] qvz5aPP7e2a/iPSJxJ4FXLOmoczug WMWfCaE53M1WdiYHyGvhPZw4WWr0895-55-00Y50:08:00 [facility] ([facility])Gastroenterology Progress NoteREPORT#:[id number] REPORT STATUS: SignedDATE:09/07/22 TIME: 1008 PATIENT: KARMA ROWLAND UNIT #: [id number]#: [id number] [address] [birth year] AGE: 56 SEX: M ATTEND: Mj Vences MDADM AUTHOR: Kassie Avitia MD * ALL edits or amendments must be made on the electronic/computer document * SubjectiveHPI:Patient is a 56-year-old male with history of diabetes mellitus type 2 and hypertension who was initially admitted for altered mental status and right-sided foot infection. 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 The patient is anemic with current Hgb 7.1. He has received a total of 3 units pRBCs during this hospitalization. KUB on 09/04 was negative for acute GI process. The patient denies overt GIB, dark tarry stools, nausea, abdominal pain, or vomiting. He has never had EGD orcolonoscopy. 09/06: No complaints today. Hemoglobin stable. No overt GI bleed. Plan for colonoscopy and endoscopy on Thursday 09/07: No complaints today. No overt GI bleed. Planning for colonoscopy and endoscopy tomorrow Objective GeneralVS/I O:Last Documented: Result Date Time Pulse Ox 96 [...] Urine 1500 1000 PATIENT WEIGHT: Weight (lb): 165Weight (oz): 5.55Weight (kg): 75.000 Physical ExamHEENT: atraumatic, normocephalicNeck: full range of motion, non-tenderRespiratory: symmetric expansion, no distressAbdomen: non-tender, normal bowel sounds, soft, no distention, no guardingExtremities: right BKA Considered stroke alert: noSkin: dry Diagnosis, Assessment PlanFree Text A P:1. Positive FOBT-KUB on 09/04 was negative for acute GI process. The patient denies overt GIB, dark tarry stools, nausea, abdominal pain, or vomiting. He isnot on anticoagulation therapy.-Continue PPI. The patient has never had EGD or colonoscopy-Planning for EGD and colonoscopy tomorrow-Clear liquid diet today. N.p.o. after midnight tonight. Prep ordered2. Acute on chronic anemia-no overt GIB with current Hgb 7.1. He has received a total of 3 units pRBCs during this hospitalization-Monitor H/H-Monitor for GIB-Transfuse if HGB <7.0 Consultants: cardiology, endocrinology, hospitalist, infectious disease, podiatry at 1009 RPT #:[id number] OF REPORTPRProgress cbic7276-48-61K18:08:00G.CDPL35522020-8052XVOdlpc able for patient kealVGQWUAJFQOYYWW2669-43-15P88:09:48 [facility] 2022-09-07 10:08:00 [id number] 84xurDruUrX7pnhEjjQCyo7kh2L/G tRw2BqIMX55iluiRJLh4QcywNXV3166-60-96Q73:08:00 [facility] ([facility])Pharmacy Prog.Note-VancomycinREPORT#:[id number] REPORT STATUS: SignedDATE:09/07/22 TIME: 1008 PATIENT: KARMA ROWLAND UNIT #: [id number]#: [id number] [address] [birth year] AGE: 56 SEX: M ATTEND: Mj Vences MDADM AUTHOR: Willie Rivera [facility] * ALL edits or amendments must be made on the electronic/computer document * Vancomycin Vancomycin Medication TherapyGoal: AUC 400-600 mg*hr/LIndication for treatment:OM and MRSA BacteremiaSite of infection: knownDay of therapy:7Weight: Actual weight (kg): 75VS and I/O:Vital SignsDate Temp Pulse Resp B/P B/P Mean Pulse Ox VvZ287/13-09/07 97.3-99.1 84-101 13-19 139-167/67-83 0.0-109.8 95-100 72 hours ending at 0700 09/07 0700 09/06 1900 09/06 0700 09/05 19009/05 0700 1900Intake 1420.00 1220 250TotalOutput 1500 1000 2050 1000 900TotalBalance -1500 -1000 -630.00 1220 -750 -900 Intake, IV 720.00 500Intake, 720 250OralIntake, 700PackedCellsNumber 1BowelMovementsNumber 0 0 0 0IncontinentVoidsNumber 0 0 0 0VoidsOutput, 1500 1000 2050 1000 900Urine 72 Hour I O Total 09/07 0700 09/06 0709/05 0700 Intake Total 2640.00 250 Output Total 2500 2050 1900 Balance -2500 590.00 -1650 Labs:Laboratory Tests: 09/07 09/06 09/04 0510 1553 1630 Toxicology Vancomycin Trough (10.0 - 20.0 mcg/mL) 18.9 12.8 Random Vancomycin (mcg/mL) 14.7 Laboratory Test : 09/07 09/06 09/05 0510 0538 0615 Chemistry BUN (7 - 18 mg/dL) 24 H Creatinine (0.6 - 1.3 mg/dL) 1.4 H 1.4 H 1.3 Microbiology:09/04 1739 STOOL: Occult Blood - COMP Drug admin history: Lab Lab Level SCr Info Drawer In Stitch Bonding Machine Med Dose Interaction/Dialysis Date/Time Date/Time Notes: Treatment plan: consult, cont current regimen/doseRationale:56yr old male with history of diabetes mellitus [...] extremity without contrast shows extensive soft tissue edema with mottled gas in the subcutaneous and intramuscular compartments of the foot, compatible with gas-forming infection. Patient's blood cultures have come back positive for MRSA in2 out of 2 sets. PT has had persistent (+)Ve cx for MRSA 08/18- 08/22. He underwent a debridement of his foot on 08/19 and cx grew MRSA. PT was started onVancomycin and clindamycin on 08/18. His MRI showed a prostate abscess. 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 Patient is s/p ICU stay with merrem/daptomycin. ID adjusting regimen to cefepime/vancomycin. Pharmacy consulted todose vancomycin. Consulting provider: Dr. Padillaication: MRSA BacteremiaGoal: AUC 400-600 mcg*hr/ml A/P 09/07:* [facility] transferred [facility] rehab 09/01* tmax: 97.9, WBC 8.4 (09/07) * Renal: Cr: 1.4 (increased from 1.1 on 09/03), clcr: 56 ml/min, urine output: 2500 mL/24 hrs documented* Micro: 08/26 prostate abscess: C farmeri, MRSA, E raffinosus. 08/18, 08/19, 08/21, 08/22, 08/25 blood MRSRA. 08/28 blood - NGTD, MRSA screen neg* Imagin/30 MRI - OM of talus, caeianeus and navicular bone; JIMENA - negativefor endocarditis * Regimen: End date 09/24 per ID. Pt was on vanc 08/18 to 08/24. Regimen then adjusted to daptomycin and teflaro on 08/25. Vanc restarted on 09/01 with vancomycin 1 g IV q24h. * Monitoring: Vanc peak on 09/03 at 1830 = 27.7 mcg/ml, Trough: 12.8. Theapeutic (AUC = 462) t1/2: 24 hrs. Repeat trough 09/07 was 18.9 mcg/ml, supratherapeutic. Patient is now dose per level. Today random level was 14.7 mcg/ml, therapeutic. Estimated half-life 36 hours. One time dose of 750 mg vancomycin ordered. Re-check level in 24 hours to continue pulse dosing.* at 1011 RPT #:[id number] OF REPORTPRProgress hgwz8121-34-97N57:08:00G.[id number] able for patient rysuBUJTLYPASJYVNQ7516-18-91K16:12:08 [facility] 2022-09-07 06:25:00 [id number] imNgnbhomEsz8+KLsVNDZW98HELTg MYEkPeIzMNbni/HFgKAydYYilgv9561-15-05W19:25:00 [facility] Progress NoteREPORT#:[id number] REPORT STATUS: SignedDATE:09/07/22 TIME: 624 PATIENT: KARMA ROWLAND UNIT #: [id number]#: [id number] [address] [birth year] AGE: 56 SEX: M ATTEND: Mj Vences MDADM AUTHOR: Guero Candelaria * ALL edits or amendments must be made on the electronic/computer document * Guero Candelaria 09/07/22 0625:SubjectiveChief complaint:Rehabilitation follow-upDoing better+ BMEatingDenies DICKENS/N/V/D/CP14 systems reviewed and neg. except that above.History of present illness:56 yo HAM with long h/o DM, and HTN who was admitted for fever, flulike symptomsand altered mental status on 08/18. He was doing well until about 3 days prior toadmission when he noted blister to have formed on the dorsum of his foot. His foot started progressively getting more swollen and the blisters started enlarging and extending to his lateral foot and ankle. He started feeling weak and nauseated. He was noted to have altered mentation and was brought to our ER.He was noted to be in DKA with Blood sugars greater than 600. He was seen by podiatry and surgery for BLE wounds and infection. He was treated in ICU for sepsis and DKA. He underwent incisional and excisional debridement of right footand right ankle by podiatry. Patient also found to have prostate abscess underwent transrectal ultrasound aspiration of abscess and transurethral resection of prostate and unroofing of abscess by urology Dr. Du. Endocrinology treated the DKA and blood sugars much improved. Patient's right foot was not salvageable and patient underwent right BKA by Dr. LEROY on 08/28. Patient blood cultures showed MRSA. Patient continued on antibiotics as per ID. MRI of the pelvis and foot completed. Patient required multiple PRBCs for anemia. Patient was found to have a possible small hematoma of the left calf onultrasound. He complains of pain and swelling of the left ankle. Patient hemodynamically stable and plans are to be transferred to stepdown unit. He is on heparin subcu for VTE. After surgery he is now being mobilized by PT and OT.He is wearing a maxine-tech orthotic for right knee/BKA protection. Prior to admission the patient was independent living in a single-story house with his spouse with a few steps up to front and back door. 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 is at bedside. Patient denies nausea, vomiting, fever, chills, chest pain, shortness of breath with dizziness. He is requiring IV Dilaudid for pain control. Mental status back to baseline. Pt is progressing slowly with therapy d/t weakness and pain, self care deficit, decreased endurance and balance, and decreased functional mobility. Pt requiring acute inpt rehab for multidisciplinary team of nursing, therapy, and physicians. Pt iswilling and able to partici- kathleen in 3 hr/day inpt rehab to d/c home safely. Pt's prior level of function was independent. Objective GeneralVS:Vital Signs: Date Time Temp Pulse Resp B/P B/P Pulse O2 O2 Flow FiO2 Mean Ox Delivery Rate 09/06 2320 97.9 90 18 158/83 0.0 96 09/06 192 97.9 91 17 155/76 102.4 95 09/06 1545 98.4 89 18 157/77 103.5 97 Room air 04/15 0718 98.1 88 18 156/77 103.1 100 Room air PATIENT WEIGHT: Weight (lb): 165Weight (oz): 5.55Weight (kg): 75.000 Medications:Active Meds + DC'd Last 24 HrsVancomycin HCl (VANCOMYCIN HCL) 750 MG ONCE ONE IV Sodium Chloride (SODIUM CHLORIDE 0.9%) 250 MLInsulin Glargine (Lantus/Semglee) 7 UNIT BEDTIME SUBQ Furosemide (LASIX 20MG INJ) 20 MG BLOOD-DOSE BETWEEN IV (CKD) Sodium Chloride (SODIUM CHLORIDE) 10 ML ASDIR IV Sodium Chloride (SODIUM CHLORIDE 0.9%) 500 ML ONCE ONE IV (DC) Furosemide (LASIX) 20 MG DAILY PO Pantoprazole Sodium (PROTONIX) 40 MG Q12HR IV Polyethylene Glycol (MIRALAX) 17 GM DAILY PO Sennosides (Senna Lax 8.6 MG TABLET) 8.6 MG DAILY PO Sodium Chloride (SODIUM CHLORIDE) 10 ML ASDIR PRN IV Amitriptyline HCl (ELAVIL) 25 MG BEDTIME PO Mupirocin (BACTROBAN 2% 22 GM OINTMENT) 1 APPLIC BID NASAL Zinc Oxide (ZINC OXIDE 30 GM OINTMENT) 1 APPLIC DAILY TOPICAL Sterile Water (WATER FOR IRRIGATION) DRESSING CHANGE ASDIR PRN IRR Insulin Human Lispro (HUMALOG) 0 AC HS SUBQ Dextrose/Water (DEXTROSE 10% IN WATER) 125 ML ASDIR PRN IV (CKD) Dextrose/Water (DEXTROSE 10% IN WATER) 250 ML ASDIR PRN IV (CKD) Glucagon (GLUCAGON) 1 MG ASDIR PRN IM Vancomycin HCl (VANCOMYCIN HCL) 1,000 MG Q24H IV (DC) Sodium Chloride (SODIUM CHLORIDE 0.9%) 250 MLHydrocodone Bitart/Acetaminophen (NORCO 10/325) 1 TAB Q4H PRN PRN PO Hydromorphone HCl (DILAUDID) 1 MG Q6H PRN PRN IV Lidocaine (LIDODERM) 1 PATCH DAILY TOPICAL Insulin Human Lispro (HUMALOG) 5 UNIT AC SUBQ Miscellaneous Information (VANCOMYCIN PHARMACY TO DOSE) 1 EACH ASDIR IV (CKD) Heparin Sodium (HEPARIN 5000 UNITS/ML) 5,000 UNIT Q8HR SUBQ (DA) Cefepime HCl (MAXIPIME) 1 GM Q6H IV Sodium Chloride (SODIUM CHLORIDE) 10 MLAcetaminophen (TYLENOL) 650 MG Q6H PRN PRN PO Bisacodyl (DULCOLAX) 10 MG DAILY PRN PRN RECTAL Docusate Sodium (COLACE) 100 MG Q12H PRN PRN PO Hydralazine HCl (APRESOLINE) 10 MG Q6H PRN PRN IV Ondansetron HCl (ZOFRAN) 4 MG Q6H PRN PRN IV Functional ProgressFunctional progress:PT daily note comment: s. PATIENT AGREED TO PT, REPORTED FEELING SLEEPY TODAY , REPORTED NOT SLEEPING WELL. O. PATIENT WORKED ON LE EX IN SUPINE ACROSS ALL PLANES, SLR, HIP ABD, KNEE FLEX, ANKLE PUMPS WITH LLE. WORKED ON BED MOB ROLLING SIDE TO SIDE WITH USE OF RAIL CGA, ABLE TO MOVE LE TO EOB, REQUIRED ASSIST WITH UPPER TRUNK TO SIT UP EOB WITH CUES TO USE LEFT ELBOW AND WRIST TO PUSH OFF.WORKED ON SLIDING BOARD TRANSFERS, EDUCATED ON SET UP OF SB, PATIENT WORKED ON JM FOR SCOOTING TRANSFERS TO WC. EDUCATED ON WC MOBILITY , TURNS, REACHING BACK ON ARM REST TO PROPEL WC, WORKED ON SIT TO STANDS IN PARALLEL BARS WITH MAXA, WITH CUES TO PUSH OF WC, SHIFT COM WITHIN BASE OF SUPPORT. STOOD 3 X 10 SEC. PATIENT WORKED ON TRANSFERS BACK TO BED WITH MIN A FOR SETUP AND SCOOTING ASSIST. EDUCATED ON OFFLOADING LLE WITH BOOT TO ALLOW PRESSURE ULCER TO HEAL. A. PATIENT IS PROGRESSING WITH PT, REQUIRES JM FOR BED MOB AND TRANSFERS, IMPROVEMENTS WITH WC PROPULSION , DEMONSTRATED DEC ACTIVITY TOLERANCE DUE TO LOW HGB P, CONTINUE WITH POC WITH AN EMPHASIS ON TRANSFERS AND STRENGTHENING Physical ExamGeneral appearance: alert, awakePsych: alert, normal affect, oriented x 3HEENT: anicteric, sclera clearNeck: supple, no JVDCardiovascular: S1/S2, no murmurRespiratory: aerating well, clear bilaterallyAbdomen: bowel sounds present, non-distended, soft, non-tenderSkin: no rash, R BKA wrapped healing. L ankle/foot wrapped with kerlixMusculoskeletal - general: Musculoskeletal - general: swelling (LLE, calve NT, homans neg), BUE 5/5, LLE4/5, R hip 3-Neuro/DIRECTOR OPERATING ROOM: alert, oriented X 3, CNII-XII intact ResultsFindings/Data:Laboratory Tests: 09/06 09/06 09/06 09/06 09/06 2226 2108 1553 1547 1051 Chemistry POC Glucose (70 - 110 MG/DL) 192 H 211 H 119 H 92 Toxicology Vancomycin Trough (10.0 - 20.0 mcg/mL) 18.9 Diagnosis, Assessment PlanProblem List/A P: 1. Gangrene of right foot 2. Below-knee amputation of right lower extremity 3. MRSA bacteremia 4. Cellulitis of foot, right 5. DKA (diabetic ketoacidosis) 6. Hyperglycemia 7. ERIKA (acute kidney injury) 8. Postoperative pain 9. Acute anemia 10. Prostate abscess 11. Impaired functional mobility, balance, gait, and endurance Free Text A P:Assessment:Severe Gas gangrene right foot and right ankle associated with osteomyelitis andnecrotizing fasciitisS/p surgical debridement and washout08/28: S/p right BKA-Dr. LeroySignificant impairment in self-care, ADLs and functional mobilityImpaired mobility and gaitAcute postoperative pain right BKADiabetic polyneuropathyDKA, DM 2, poorly controlled, A1c greater than 14PADMRSA bacteremia/sepsis-treated on acuteAKISevere hyponatremia-resolvedHTNAcute on chronic anemia requiring multiple transfusions, possible GI bleedLeft calf hematomaEdema and clinical arthritis left ankleEarly decubitus to left heel/DTI dorsal left midfootProstatic abscess 08/26: S/p transrectal ultrasound aspiration of abscess and transurethral resection of prostate and unroofing of abscessEcho: EF 55-59%, grade 1 diastolic dysfunction09/02: JIMENA negative for vegetationMRSA OF NARESLeft calf hematoma Plan:-PLOF: Independent with transfers and gait-Amputee rehab program-Continue PT and OT-15/12 rehabilitation nursing care.-Case management for safe discharge planning.-Decubitus prevention-Early decubitus to left heel/DTI dorsal left midfoot-zinc oxide to the foot, foam, offloading, podiatry managing-DVT prophylaxis-subcutaneous heparin-Strict fall and safety precautions-Work on bed mobility, transfer training, ADLs, pre-gait and gait exercises-Increase endurance and strength-Monitor pain with therapies-OOB to chair-Monitor p.o. intake and nutrition, albumin 1.3, prealbumin less than 5, dietaryconsultation, protein supplements to promote healing-Continue antibiotics per ID-Tight glycemia control- endocrine on board, insulin adjustments-Endocrinology, ID, podiatry, cardiology, IM consulted-Pain management adjusting pain medications-Labs reviewed-Anemia, patient required multiple units of PRBCs on acute, FOBT positive-IV Protonix-consult GI-serial H H-no evidence of gross bleeding-discussed with Dr. TrinidadOfqwnlak-Xielarldtamx-vwkwauehk kchnniml-XTG-fjkzzo-CW Senokot and MiraLAX, DSP-Right ULW-ytfimiz-nyvfwwzk resolved, dressings changed mxlct-tnoxvzh-kkiutdbi DLP-JGQM-GNJD OF NARES on Bactroban protocol-LLE edema-venous Doppler with complex heterogeneous hypoechoic fluid collectionin the left calf region measuring 8.4, 2.8, 2.5 cm suggestive of hematoma. HoldLasix x3 days. Joan wrap calf-Generalized edema-some shortness of breath and abdominal distention-cardiology gave a dose of IV Lasix-monitor urine output, daily weights-Chest x-ray with minimal basilar pulmonary glnlcxoex-Baqnym-wtbdhzmiym 2 units of PRBC on 09/05-Advance therapies as tolerated-discussed treatment plan with patient and -Patient progressing but limited due to weakness requiring min assist with transfers with standby assist. Continue plan of care with emphasis on sliding board transfers. Total time 33 minutes greater than 50% of the time spent examining patient, leftcalf hematoma, anemia, hold anticoagulants for a few days, amputee rehab plan ofcare, goals, therapies, progress, labs, medications. EMR and MAR is reviewed. All questions answeredRehab attestation:Face to face exam completed. Treatment plan discussed with patient. Meets continued stay criteria. Agree with interdisciplinary treatment plan. Mj Vences 09/07/22 1044:Attestations Physician AttestationAgree w/findings plan:Patient seen and examined. Agree with the findings and plan as documented by TEJAS Tran Planning for colonoscopy and endoscopy tomorrow at 1044 at 1716 RPT #:[id number] OF REPORTPRProgress whcx1434-68-81X79:25:00G.[id number] able for patient kuezXXXVVEPLNXUTFB3553-50-99G88:46:24 [facility] 2022-09-06 17:38:00 [id number] WGvaso3ZYhiXNGuB4bcbrWj5e6mpK eCE9mGY+X51V5BedlC9x+Pqn2Xc0312-86-00J61:38:00 [facility] HospitalEndocrinology Progress NoteREPORT#:[id number] REPORT STATUS: SignedDATE:09/06/22 TIME: 1737 PATIENT: KARMA ROWLAND UNIT #: [id number]#: [id number] [address] AGE: 56 SEX: M ATTEND: Mj Vences MDADM AUTHOR: Braxton Chapin MD * ALL edits or amendments must be made on the electronic/computer document * SubjectivePatient reports: no complaints Objective GeneralVS:Last Documented: Result Date Time Pulse Ox 97 09/06 1545 B/P 157/77 09/06 1545 B/P Mean 103.5 09/06 1545 O2 Delivery Room air 09/06 1545 Temp 36.9 09/06 1545 Pulse 89 09/06 1545 Resp 18 09/06 1545 PATIENT WEIGHT: Weight (lb): 165Weight (oz): 5.55Weight (kg): 75.000 Medications:Active Meds + DC'd Last 24 HrsInsulin Glargine (Lantus/Semglee) 7 UNIT BEDTIME SUBQ Furosemide (LASIX 20MG INJ) 20 MG BLOOD-DOSE BETWEEN IV (CKD) Sodium Chloride (SODIUM CHLORIDE) 10 ML ASDIR IV Sodium Chloride (SODIUM CHLORIDE 0.9%) 500 ML ONCE ONE IV (DC) Furosemide (LASIX) 20 MG DAILY PO Pantoprazole Sodium (PROTONIX) 40 MG Q12HR IV Polyethylene Glycol (MIRALAX) 17 GM DAILY PO Sennosides (Senna Lax 8.6 MG TABLET) 8.6 MG DAILY PO Sodium Chloride (SODIUM CHLORIDE) 10 ML ASDIR PRN IV Amitriptyline HCl (ELAVIL) 25 MG BEDTIME PO Mupirocin (BACTROBAN 2% 22 GM OINTMENT) 1 APPLIC BID NASAL Zinc Oxide (ZINC OXIDE 30 GM OINTMENT) 1 APPLIC DAILY TOPICAL Sterile Water (WATER FOR IRRIGATION) DRESSING CHANGE ASDIR PRN IRR Insulin Human Lispro (HUMALOG) 0 AC HS SUBQ Dextrose/Water (DEXTROSE 10% IN WATER) 125 ML ASDIR PRN IV (CKD) Dextrose/Water (DEXTROSE 10% IN WATER) 250 ML ASDIR PRN IV (CKD) Glucagon (GLUCAGON) 1 MG ASDIR PRN IM Vancomycin HCl (VANCOMYCIN HCL) 1,000 MG Q24H IV (DC) Sodium Chloride (SODIUM CHLORIDE 0.9%) 250 MLHydrocodone Bitart/Acetaminophen (NORCO 10/325) 1 TAB Q4H PRN PRN PO Hydromorphone HCl (DILAUDID) 1 MG Q6H PRN PRN IV Lidocaine (LIDODERM) 1 PATCH DAILY TOPICAL Insulin Human Lispro (HUMALOG) 5 UNIT AC SUBQ Miscellaneous Information (VANCOMYCIN PHARMACY TO DOSE) 1 EACH ASDIR IV (CKD) Heparin Sodium (HEPARIN 5000 UNITS/ML) 5,000 UNIT Q8HR SUBQ (DA) Cefepime HCl (MAXIPIME) 1 GM Q6H IV Sodium Chloride (SODIUM CHLORIDE) 10 MLAcetaminophen (TYLENOL) 650 MG Q6H PRN PRN PO Bisacodyl (DULCOLAX) 10 MG DAILY PRN PRN RECTAL Docusate Sodium (COLACE) 100 MG Q12H PRN PRN PO Hydralazine HCl (APRESOLINE) 10 MG Q6H PRN PRN IV Ondansetron HCl (ZOFRAN) 4 MG Q6H PRN PRN IV Physical ExamGeneral appearance: alert, awake Diagnosis, Assessment PlanHospital course to date:Laboratory Tests: 09/06 09/06 09/06 09/06 09/06 1553 [...] 1739 Occult Blood - COMP STOOL Recent Impressions:RADIOLOGY - XR ABDOMEN 1V (KUB) 09/04 1648 Report Impression - Status: SIGNED Entered: 09/04/2022 1757 IMPRESSION: Benign appearance of the abdomen.Impression By: [email or web address] - Roger Parra M.D.ULTRASOUND - [facility] 09/05 1146 Report Impression - Status: SIGNED Entered: 09/05/2022 1333 IMPRESSION: 1. No evidence of deep vein thrombosis. 2. Complex heterogeneous hypoechoic fluid collection in the left calf region measuring 8.4 x 2.8 x 2.5 cm; there is no internal vascularity or peripheral hyperemia. May represent a hematoma.Impression By: [email or web address] - Mert Ga M.D.RADIOLOGY - XR CHEST 1 V 09/05 1432 Report Impression - Status: SIGNED Entered: 09/05/2022 1515 IMPRESSION: Minimal bibasilar pulmonary opacitiesImpression By: Yared Mares M.D. Laboratory Tests: 09/04 09/04 09/04 09/04 09/04 [...] COLB STOOL 1.Diabetes mellitus type 2 uncontrolled complications.2. Status post right BKA3. Status post gangrene of the right foot.4. Sepsis5. Prostate abscess.6. AnemiaBlood sugar 124-92 mg/dL.H/H 8.6/26.1Adjust insulin dose.PT and OT. at 1739 RPT #:[id number] OF REPORTPRProgress [id number]:38:00G.[id number] able for patient qwfqKLSQDKWWQMYSAH5827-02-66P69:39:58 [facility] 2022-09-06 14:33:00 [id number] m4mgBlIf0HblbTMaZg5H0WWu0RIm3 V566GdgSfHfi1SzUd+4XHguwiW91596-48-52D82:33:00 [facility] HospitalGastroenterology Progress NoteREPORT#:[id number] REPORT STATUS: SignedDATE:09/06/22 TIME: 1433 PATIENT: KARMA ROWLAND UNIT #: [id number]#: [id number] [place]DOB: [birth year] AGE: 56 SEX: M ATTEND: Mj Vences [facility] AUTHOR: Kassie Avitia MD * ALL edits or amendments must be made on the electronic/computer document * SubjectiveHPI:Patient is a 56-year-old male with history of diabetes mellitus type 2 and hypertension who was initially admitted for altered mental status and right-sided foot infection. 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 The patient is anemic with current Hgb 7.1. He has received a total of 3 units pRBCs during this hospitalization. KUB on 09/04 was negative for acute GI process. The patient denies overt GIB, dark tarry stools, nausea, abdominal pain, or vomiting. He has never had EGD orcolonoscopy. 09/06: No complaints today. Hemoglobin stable. No overt GI bleed. Plan for colonoscopy and endoscopy on Thursday Objective Physical ExamHEENT: atraumatic, normocephalicNeck: full range of motion, non-tenderRespiratory: symmetric expansion, no distressAbdomen: non-tender, normal bowel sounds, soft, no distention, no guardingExtremities: right BKA Considered stroke alert: noSkin: dry Diagnosis, Assessment PlanFree Text A P:1. Positive FOBT-KUB on 09/04 was negative for acute GI process. The patient denies overt GIB, dark tarry stools, nausea, abdominal pain, or vomiting. He isnot on anticoagulation therapy.-Continue PPI. The patient has never had EGD or colonoscopy-Planning for EGD and colonoscopy on Thursday.-Clear liquid diet on Thursday. N.p.o. after midnight on Thursday. Will order prep2. Acute on chronic anemia-no overt GIB with current Hgb 7.1. He has received a total of 3 units pRBCs during this hospitalization-Monitor H/H-Monitor for GIB-Transfuse if HGB <7.0 Consultants: cardiology, endocrinology, hospitalist, infectious disease, podiatry at 1435 RPT #:[id number] OF REPORTPRProgress [id number]:33:00G.[id number] able for patient htddIKVJKQMVYLBSYW8836-17-51S37:35:39 [facility] 2022-09-06 12:30:00 [id number]+ MU2n6aRei3RPXLMBdd1OLOgXbqnQS qZ9AKM9WB4WWGPp4uRlSjYBh+ew6179-55-74U24:30:[address] [facility]Hospital[facility] Progress NoteREPORT#:[id number] REPORT STATUS: SignedDATE:09/06/22 TIME: 1230 PATIENT: KARMA ROWLAND UNIT #: [id number]#: [id number] [address] [birth year] AGE: 56 SEX: M ATTEND: Mj Vences [facility] AUTHOR: Musa Enriquez MD * ALL edits or amendments must be made on the electronic/computer document * SubjectiveChief complaint:admitted to rehab. participating with therapyHPI:no new issues Review of SystemsAll systems rev neg: except as noted Objective GeneralVS/I O:Vital Signs: Date Time Temp Pulse Resp B/P B/P Pulse O2 O2 Flow FiO2 Mean Ox Delivery Rate 09/06 1545 36.9 89 18 157/77 103.5 97 Room air 09/06 0718 36.7 88 18 156/77 103.1 100 Room air 09/06 0127 36.6 89 15 150/75 99.6 96 09/06 0004 36.7 94 15 149/73 98.4 96 09/05 2303 36.7 94 15 151/72 98.2 96 09/05 2245 37.3 93 15 154/74 100.5 95 09/059 36.9 93 15 144/68 93.7 99 09/054 36.9 92 15 149/70 96.1 95 09/05 2230 37.1 94 15 158/75 102.7 97 04/14 2227 36.9 96 16 150/73 98.5 95 09/05 [...] Output, Urine 2049 PATIENT WEIGHT: Weight (lb): 165Weight (oz): 5.55Weight (kg): 75.000 Medications:Active Meds + DC'd Last 24 HrsInsulin Glargine (Lantus/Semglee) 7 UNIT BEDTIME SUBQ Furosemide (LASIX 20MG INJ) 20 MG BLOOD-DOSE BETWEEN IV (CKD) Sodium Chloride (SODIUM CHLORIDE) 10 ML ASDIR IV Sodium Chloride (SODIUM CHLORIDE 0.9%) 500 ML ONCE ONE IV (DC) Furosemide (LASIX) 20 MG DAILY PO Pantoprazole Sodium (PROTONIX) 40 MG Q12HR IV Polyethylene Glycol (MIRALAX) 17 GM DAILY PO Sennosides (Senna Lax 8.6 MG TABLET) 8.6 MG DAILY PO Sodium Chloride (SODIUM CHLORIDE) 10 ML ASDIR PRN IV Amitriptyline HCl (ELAVIL) 25 MG BEDTIME PO Mupirocin (BACTROBAN 2% 22 GM OINTMENT) 1 APPLIC BID NASAL Zinc Oxide (ZINC OXIDE 30 GM OINTMENT) 1 APPLIC DAILY TOPICAL Sterile Water (WATER FOR IRRIGATION) DRESSING CHANGE ASDIR PRN IRR Insulin Human Lispro (HUMALOG) 0 AC HS SUBQ Dextrose/Water (DEXTROSE 10% IN WATER) 125 ML ASDIR PRN IV (CKD) Dextrose/Water (DEXTROSE 10% IN WATER) 250 ML ASDIR PRN IV (CKD) Glucagon (GLUCAGON) 1 MG ASDIR PRN IM Vancomycin HCl (VANCOMYCIN HCL) 1,000 MG Q24H IV Sodium Chloride (SODIUM CHLORIDE 0.9%) 250 MLHydrocodone Bitart/Acetaminophen (NORCO 10/325) 1 TAB Q4H PRN PRN PO Hydromorphone HCl (DILAUDID) 1 MG Q6H PRN PRN IV Lidocaine (LIDODERM) 1 PATCH DAILY TOPICAL Insulin Human Lispro (HUMALOG) 5 UNIT AC SUBQ Miscellaneous Information (VANCOMYCIN PHARMACY TO DOSE) 1 EACH ASDIR IV (CKD) Heparin Sodium (HEPARIN 5000 UNITS/ML) 5,000 UNIT Q8HR SUBQ (DA) Cefepime HCl (MAXIPIME) 1 GM Q6H IV Sodium Chloride (SODIUM CHLORIDE) 10 MLAcetaminophen (TYLENOL) 650 MG Q6H PRN PRN PO Bisacodyl (DULCOLAX) 10 MG DAILY PRN PRN RECTAL Docusate Sodium (COLACE) 100 MG Q12H PRN PRN PO Hydralazine HCl (APRESOLINE) 10 MG Q6H PRN PRN IV Ondansetron HCl (ZOFRAN) 4 MG Q6H PRN PRN IV Physical ExamHead/Eyes: atraumatic, clear corneaNeck: full range of motion, non-tenderCardiovascular: normal capillary refill, normal heart sounds, regular rate rhythmRespiratory: aerating well, clear to auscultationAbdomen: non-tender, normal bowel soundsGenitourinary: no flank painExtremities: moves all, normal capillary refillMusculoskeletal: normal inspection, painless range of motionNeuro/DIRECTOR OPERATING ROOM: alert, oriented X 3, 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 Considered stroke alert: noSkin: dry, intactPsychiatry: normal affect, normal judgment/insight ResultsFindings/Data:Laboratory Tests 09/06 09/06 09/06 09/06 09/05 1547 [...] Diagnosis, Assessment Plan Free Text DxA P NotesFree text DxA P notes:Gangrene of right foot s/p Below- knee amputation Prostate abscessMRSA bacteremiaHx of Diabetes, Diabetic neuropathy PLANS: Continue with ABx as dierected- currently on Daptomycin and CefepimeContinue with PT/OT per primary Fall precautionsNutritional supportpain controlTight glycemia control- endocrine on board, insulin adjustmentsWound care as directedHepain PPXContinue with supportive / care follow hgb closely and transfuse as needed 09/06/22 Doing well continue with pt ot at 1624 RPT #:[id number] OF REPORTPRProgress vjme0439-95-00K54:30:00G.[id number] able for patient rxajHIGMWCXUXHEDIK1130-64-57E79:24:56 [facility] 2022-09-06 09:10:00 [id number] ZXG2qCYHy2odUgcJFRFdNYJjyJ91F UBr6MN8semg02iRGOAbMhEgVUa70191-45-00X15:10:00 [facility] HospitalPharm[facility] Prog.Note-VancomycinREPORT#:[id number] REPORT STATUS: SignedDATE:09/06/22 TIME: 0910 PATIENT: KARMA ROWLAND UNIT #: [id number]#: [id number] [address] [birth year] AGE: 56 SEX: M ATTEND: Mj Vences MDA AUTHOR: Hyun Pichardo [facility] * ALL edits or amendments must be made on the electronic/computer document * See AddendumVancomycin Vancomycin Medication TherapyGoal: AUC 400-600 mg*hr/LIndication for treatment:OM and MRSA BacteremiaLabs:Laboratory Tests: 09/04 09/03 1630 1836 Toxicology Vancomycin Peak (30 - 40 MCG/ML) 27.4 L Vancomycin Trough (10.0 - 20.0 mcg/mL) 12.8 Laboratory Test : 09/06 09/05 0538 0615 Chemistry BUN (7 - 18 mg/dL) 24 H Creatinine (0.6 - 1.3 mg/dL) 1.4 H 1.3 Microbiology:09/04 1739 STOOL: Occult Blood - COMP Treatment plan: cont current regimen/doseRationale:56yr old male with history of diabetes mellitus [...] extremity without contrast shows extensive soft tissue edema with mottled gas in the subcutaneous and intramuscular compartments of the foot, compatible with gas-forming infection. Patient's blood cultures have come back positive for MRSA in2 out of 2 sets. PT has had persistent (+)Ve cx for MRSA 08/18- 08/22. He underwent a debridement of his foot on 08/19 and cx grew MRSA. PT was started onVancomycin and clindamycin on 08/18. His MRI showed a prostate abscess. 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 Patient is s/p ICU stay with merrem/daptomycin. ID adjusting regimen to cefepime/vancomycin. Pharmacy consulted todose vancomycin. Consulting provider: Dr. Padillaication: MRSA BacteremiaGoal: AUC 400-600 mcg*hr/ml A/P 09/06:* [facility] rehab 09/01* tmax: 37.3, WBC 8.7 (09/03) * Renal: Cr: 1.4 (increased from 1.1 on 09/03), clcr: 61 ml/min, urine output: 2050 mL/24 hrs documented* Micro: 08/26 prostate abscess: C farmeri, MRSA, E raffinosus. 08/18, 08/19, 08/21, 08/22, 08/25 blood MRSRA. 08/28 blood - NGTD, MRSA screen neg* Imagin/30 MRI - OM of talus, caeianeus and navicular bone; JIMENA - negativefor endocarditis * Regimen: End date 09/24 per ID. Pt was on vanc 08/18 to 08/24. Regimen then adjusted to daptomycin and teflaro on 08/25. Vanc restarted on 09/01 with vancomycin 1 g IV q24h. * Monitoring: Vanc peak on 09/03 at 1830 = 27.7 mcg/ml, Trough: 12.8. Theapeutic (AUC = 462) t1/2: 24 hrs* Will order trough today @ 1600 as creatinine is increasing (urint output stillseems ok) aiming for trough of 13 at 0927 Addendum 1: 09/06/22 1640 by Hyun Pichardo [facility] Vancomycin trough: 18.9 (supratherapeutic), Vancomycin held for today. Random ordered with AM labs tomorrow as unsure if renal function will continue to get worse or start to improve. Will dose based on level tomorrow am. at 1641 RPT #:[id number] OF REPORTPRProgress eanx1929-49-27G29:10:00G.[id number] able for patient eqtpPWIIQOVTIEKBNM2561-00-83Z26:27:27 [facility] 2022-09-06 07:31:00 [id number] 4NXEWnUIhoxiVLehHiOy/t84eT35f M+OHOBVNwJslNnqjpT+E4Of4sve5897-71-98N17:31:00 [facility] ([facility])Pain Management Progress NoteREPORT#:[id number] REPORT STATUS: SignedDATE:09/06/22 TIME: 730 PATIENT: KARMA ROWLAND UNIT #: [id number]#: [id number] [address] [birth year] AGE: 56 SEX: M ATTEND: Mj Vences MDA AUTHOR: Ben Klein * ALL edits or amendments must be made on the electronic/computer document * Ben Klein 09/06/22 0731:SubjectiveChief complaint:Patient seen and examined. Chart/MAR reviewed. Patient is feeling better this evening. is at bedside. BKA discomfort is manageable with alternating oral and IV narcotics. No bothersome neuropathy symptoms, and he is sleeping better. Patient being seen for Acute postoperative pain, right foot and anklegangrene, requiring BKA, Constipation Patient is still requiring medications to help with managing currentproblems. Patient is requiring IV narcotics to help manage breakthrough pain No fever/chills, chest pain, orthopnea, nausea/vomiting, pruritus, orhallucinations.14 point ROS undertaken unremarkable except as noted Objective GeneralVS/I O:Vital SignsDate Temp Pulse Resp B/P B/P Mean Pulse Ox UeA329/14-09/06 36.3-37.3 88-101 15-19 144-166/68-82 93.7-109.8 95-100 Last Documented: Result Date Time Pulse Ox 100 09/06 0718 B/P 156/77 09/06 0718 B/P Mean 103.1 09/06 0718 O2 Delivery Room air 09/06 717 Temp 36.7 09/06 07 Pulse 88 09/06 0718 Resp 18 09/06 0718 24 hour I O ending at 0700: 09/06 0700 09/05 1900 Intake Total 1420.00 1220 Output Total 2049 Balance -630.00 1220 Intake, IV 720.00 500 Intake, Oral 720 Intake, 700 Packed Cells Number 1 Bowel Movements Number 0 Incontinent Voids Number Voids 0 Output, Urine 2049 PATIENT WEIGHT: Weight (lb): 165Weight (oz): 5.55Weight (kg): 75.000 Medications:Active Meds + DC'd Last 24 HrsInsulin Glargine (Lantus/Semglee) 7 UNIT BEDTIME SUBQ Furosemide (LASIX 20MG INJ) 20 MG BLOOD-DOSE BETWEEN IV (CKD) Sodium Chloride (SODIUM CHLORIDE) 10 ML ASDIR IV Sodium Chloride (SODIUM CHLORIDE 0.9%) 500 ML ONCE ONE IV Furosemide (LASIX) 20 MG DAILY PO Pantoprazole Sodium (PROTONIX) 40 MG Q12HR IV Polyethylene Glycol (MIRALAX) 17 GM DAILY PO Sennosides (Senna Lax 8.6 MG TABLET) 8.6 MG DAILY PO Sodium Chloride (SODIUM CHLORIDE) 10 ML ASDIR PRN IV Amitriptyline HCl (ELAVIL) 25 MG BEDTIME PO Mupirocin (BACTROBAN 2% 22 GM OINTMENT) 1 APPLIC BID NASAL Zinc Oxide (ZINC OXIDE 30 GM OINTMENT) 1 APPLIC DAILY TOPICAL Insulin Glargine (Lantus/Semglee) 10 UNIT BEDTIME SUBQ (DC) Sterile Water (WATER FOR IRRIGATION) DRESSING CHANGE ASDIR PRN IRR Insulin Human Lispro (HUMALOG) 0 AC HS SUBQ Dextrose/Water (DEXTROSE 10% IN WATER) 125 ML ASDIR PRN IV (CKD) Dextrose/Water (DEXTROSE 10% IN WATER) 250 ML ASDIR PRN IV (CKD) Glucagon (GLUCAGON) 1 MG ASDIR PRN IM Vancomycin HCl (VANCOMYCIN HCL) 1,000 MG Q24H IV Sodium Chloride (SODIUM CHLORIDE 0.9%) 250 MLHydrocodone Bitart/Acetaminophen (NORCO 10/325) 1 TAB Q4H PRN PRN PO Hydromorphone HCl (DILAUDID) 1 MG Q6H PRN PRN IV Lidocaine (LIDODERM) 1 PATCH DAILY TOPICAL Insulin Human Lispro (HUMALOG) 5 UNIT AC SUBQ Miscellaneous Information (VANCOMYCIN PHARMACY TO DOSE) 1 EACH ASDIR IV (CKD) Heparin Sodium (HEPARIN 5000 UNITS/ML) 5,000 UNIT Q8HR SUBQ Cefepime HCl (MAXIPIME) 1 GM Q6H IV Sodium Chloride (SODIUM CHLORIDE) 10 MLAcetaminophen (TYLENOL) 650 MG Q6H PRN PRN PO Bisacodyl (DULCOLAX) 10 MG DAILY PRN PRN RECTAL Docusate Sodium (COLACE) 100 MG Q12H PRN PRN PO Hydralazine HCl (APRESOLINE) 10 MG Q6H PRN PRN IV Ondansetron HCl (ZOFRAN) 4 MG Q6H PRN PRN IV Physical ExamGeneral appearance: alert, awake, oriented, no acute distressHead/eyes: atraumatic, EOMI, normocephalic, normal conjunctiva/sclera, PERRLAENT: normal ear left, normal nose, normal pharynx, moist mucosal membranesNeck: full range of motion, no lymphadenopathy, supple/no meningismusCardiovascular: regular rate rhythmRespiratory: clear to auscultation, no distress, aerating wellAbdomen: soft, non-tender, no distention, active bowel sounds in all quarants. Abdomen quadrantsLLQ normal bowel sounds, LUQ normal bowel sounds, RLQ normal bowel sounds, RUQ normal bowel soundsExtremities: moves all, no edema, pedal pulsesNeuro/DIRECTOR OPERATING ROOM: 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, no sensory deficits, CNII-XII grossly intact Considered stroke alert: noSkin: dry, intact, no rash ResultsFindings/data:Laboratory Tests: 09/06 09/05 09/05 09/05 0536 1910 1623 1149 Chemistry POC Glucose (70 - 110 MG/DL) 124 H 117 H 123 H 74 Recent Impressions:ULTRASOUND - DUP VEIN UNI/LTD 09/05 1146 Report Impression - Status: SIGNED Entered: 09/05/2022 1333 IMPRESSION: 1. No evidence of deep vein thrombosis. 2. Complex heterogeneous hypoechoic fluid collection in the left calf region measuring 8.4 x 2.8 x 2.5 cm; there is no internal vascularity or peripheral hyperemia. May represent a hematoma.Impression By: [email or web address] - Mert Ga M.D.RADIOLOGY - XR CHEST 1 V 09/05 1432 Report Impression - Status: SIGNED Entered: 09/05/2022 1515 IMPRESSION: Minimal bibasilar pulmonary opacitiesImpression By: Yared Mares M.D. Diagnosis, Assessment PlanFree text A P:A/P:Patient is a 56 year old male who presents with: Past Medical History: Prostate abscess, right foot foot and ankle gangrene, diabetes, hypertension, hyperlipidemiaPast Surgical History: TURP, right BKAFamily History: NoncontributorySocial History: Denies tobacco, alcohol, or drug useAllergies: NKDA Recent prostate abscess-Status post TURP with unroofing of abscess-IV antibiotics with vancomycin until 09-24-2022 Acute postoperative pain, right foot and ankle gangrene, requiring BKA-Patient is at risk for further amputations or loss of limb due to comorbid conditions-Status post right BKA 08/28/2022-Tylenol 650 mg p.o. every 6 hours as needed pain scale 1 3-Sheldon 10/325 1 tablet p.o. every 4 hours as needed pain scale 4 10-Dilaudid 1 mg IV every 6 hours as needed pain scale 7 10, second line therapy-patient will require close monitoring while using IV narcotics for any deleterious effect-Lidoderm patch to left ankle daily-IV antibiotics with vancomycin until 3-7-5121-Local wound care-manageable Diabetic peripheral neuropathy-patient is based on adrenal insufficiency-amitriptyline 25mg PO QHS-manageable Uncontrolled diabetes, diabetes with complications, recent DKA-Hemoglobin A1c 13.4-Recent right foot and ankle gangrene-Insulin sliding scale, FSBS, good glycemic control Hypertension-We will monitor hypertension and tachycardia due to pain, and hypotension as well as bradycardia secondary over sedation with narcotics-Hydralazine as needed Elevated LFTs-08/20/22-AST 51, ALT 22-09/03/2022-AST 15, ALT 7-Patient will require close monitoring since he is using narcotics with Tylenol Impaired functional mobility, balance, gait, and endurance-PT/OT Constipation-We will monitor while utilizing opioid narcotic medications.-Adequate fluid intake also discussed.-Colace 100 mg p.o. twice daily as needed-Dulcolax 10 mg rectally daily as needed-manageable Patient has failed conservative medical therapy.Patient will require monitoring while utilize narcotic medications for any adverse effects, and will adjust as neededPlan of care discussed with patient and nurseAll diagnostics of last 24 hours been reviewed. Risks versus benefits of opioid medications were reviewed to include, but not limited to respiratory depression, accidental overdose, altered mental status, sudden , constipation which could result in bowel obstruction, seizures, withdrawal, dependency addiction, risk for falls. Case discussed with Dr Ng whom agrees. Thank you for the consultation. [place] DIS[employer] HEARING OFFICER:-database searched, no information found Kingsley Ng 09/23/22 1734:Attestations Physician AttestationAgree w/findings plan:The patient was seen and examined by Ben Klein. I personally developed the care plan, which was continued by the mid-level provider. I was immediately available. at 1816 at 1737 RPT #:[id number] OF REPORTPRProgress [id number]:31:00G.[id number] able for patient [id number]:17:22 [facility] 2022-09-06 06:24:00 [id number]/ly/0 [id number]/fWI/HLRyIK6ATPxn Cm2ZZa+1spc4RwVhMgAEU9tief61321-31-21A51:24:00 [facility])Rehab Progress NoteREPORT#:[id number] REPORT STATUS: SignedDATE:09/06/22 TIME: 623 PATIENT: KARMA ROWLAND UNIT #: [id number]#: [id number] [address] [birth year] AGE: 56 SEX: M ATTEND: Mj Vences MDADM AUTHOR: Guero Candelaria * ALL edits or amendments must be made on the electronic/computer document * Guero Candelaria 09/06/22 0624:SubjectiveChief complaint:Rehabilitation follow-upDoing better+ BMPatient very motivatedEatingDenies DICKENS/N/V/D/CP14 systems reviewed and neg. except that above.History of present illness:56 yo HAM with long h/o DM, and HTN who was admitted for fever, flulike symptomsand altered mental status on 08/18. He was doing well until about 3 days prior toadmission when he noted blister to have formed on the dorsum of his foot. His foot started progressively getting more swollen and the blisters started enlarging and extending to his lateral foot and ankle. He started feeling weak and nauseated. He was noted to have altered mentation and was brought to our ER.He was noted to be in DKA with Blood sugars greater than 600. He was seen by podiatry and surgery for BLE wounds and infection. He was treated in ICU for sepsis and DKA. He underwent incisional and excisional debridement of right footand right ankle by podiatry. Patient also found to have prostate abscess underwent transrectal ultrasound aspiration of abscess and transurethral resection of prostate and unroofing of abscess by urology Dr. Du. Endocrinology treated the DKA and blood sugars much improved. Patient's right foot was not salvageable and patient underwent right BKA by Dr. LEROY on 08/28. Patient blood cultures showed MRSA. Patient continued on antibiotics as per ID. MRI of the pelvis and foot completed. Patient required multiple PRBCs for anemia. Patient was found to have a possible small hematoma of the left calf onultrasound. He complains of pain and swelling of the left ankle. Patient hemodynamically stable and plans are to be transferred to stepdown unit. He is on heparin subcu for VTE. After surgery he is now being mobilized by PT and OT.He is wearing a maxine-tech orthotic for right knee/BKA protection. Prior to admission the patient was independent living in a single-story house with his spouse with a few steps up to front and back door. 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 is at bedside. Patient denies nausea, vomiting, fever, chills, chest pain, shortness of breath with dizziness. He is requiring IV Dilaudid for pain control. Mental status back to baseline. Pt is progressing slowly with therapy d/t weakness and pain, self care deficit, decreased endurance and balance, and decreased functional mobility. Pt requiring acute inpt rehab for multidisciplinary team of nursing, therapy, and physicians. Pt iswilling and able to partici- kathelen in 3 hr/day inpt rehab to d/c home safely. Pt's prior level of function was independent. Objective GeneralVS:Vital Signs: Date Time Temp Pulse Resp B/P B/P Pulse O2 O2 Flow FiO2 Mean Ox Delivery Rate 09/067 97.9 89 15 150/75 99.6 96 09/06 0004 98.1 94 15 149/73 98.4 96 09/05 2303 98.1 94 15 151/72 98.2 96 09/055 99.1 93 15 154/74 100.5 95 09/05 2238 98.4 93 15 144/68 93.7 99 09/054 98.4 92 15 149/70 96.1 95 09/050 98.8 94 15 158/75 102.7 97 09/057 98.4 96 16 150/73 98.5 95 09/052 98.2 09/05 1849 91 151/75 100.6 96 [...] 97 Room air PATIENT WEIGHT: Weight (lb): 165Weight (oz): 5.55Weight (kg): 75.000 Medications:Active Meds + DC'd Last 24 HrsInsulin Glargine (Lantus/Semglee) 7 UNIT BEDTIME SUBQ Furosemide (LASIX 20MG INJ) 20 MG BLOOD-DOSE BETWEEN IV (CKD) Sodium Chloride (SODIUM CHLORIDE) 10 ML ASDIR IV Sodium Chloride (SODIUM CHLORIDE 0.9%) 500 ML ONCE ONE IV Furosemide (LASIX) 20 MG DAILY PO Pantoprazole Sodium (PROTONIX) 40 MG Q12HR IV Polyethylene Glycol (MIRALAX) 17 GM DAILY PO Sennosides (Senna Lax 8.6 MG TABLET) 8.6 MG DAILY PO Sodium Chloride (SODIUM CHLORIDE) 10 ML ASDIR PRN IV Amitriptyline HCl (ELAVIL) 25 MG BEDTIME PO Mupirocin (BACTROBAN 2% 22 GM OINTMENT) 1 APPLIC BID NASAL Zinc Oxide (ZINC OXIDE 30 GM OINTMENT) 1 APPLIC DAILY TOPICAL Insulin Glargine (Lantus/Semglee) 10 UNIT BEDTIME SUBQ (DC) Sterile Water (WATER FOR IRRIGATION) DRESSING CHANGE ASDIR PRN IRR Insulin Human Lispro (HUMALOG) 0 AC HS SUBQ Dextrose/Water (DEXTROSE 10% IN WATER) 125 ML ASDIR PRN IV (CKD) Dextrose/Water (DEXTROSE 10% IN WATER) 250 ML ASDIR PRN IV (CKD) Glucagon (GLUCAGON) 1 MG ASDIR PRN IM Vancomycin HCl (VANCOMYCIN HCL) 1,000 MG Q24H IV Sodium Chloride (SODIUM CHLORIDE 0.9%) 250 MLHydrocodone Bitart/Acetaminophen (NORCO 10/325) 1 TAB Q4H PRN PRN PO Hydromorphone HCl (DILAUDID) 1 MG Q6H PRN PRN IV Lidocaine (LIDODERM) 1 PATCH DAILY TOPICAL Insulin Human Lispro (HUMALOG) 5 UNIT AC SUBQ Miscellaneous Information (VANCOMYCIN PHARMACY TO DOSE) 1 EACH ASDIR IV (CKD) Heparin Sodium (HEPARIN 5000 UNITS/ML) 5,000 UNIT Q8HR SUBQ Cefepime HCl (MAXIPIME) 1 GM Q6H IV Sodium Chloride (SODIUM CHLORIDE) 10 MLAcetaminophen (TYLENOL) 650 MG Q6H PRN PRN PO Bisacodyl (DULCOLAX) 10 MG DAILY PRN PRN RECTAL Docusate Sodium (COLACE) 100 MG Q12H PRN PRN PO Hydralazine HCl (APRESOLINE) 10 MG Q6H PRN PRN IV Ondansetron HCl (ZOFRAN) 4 MG Q6H PRN PRN IV Functional ProgressFunctional progress:PT daily note comment: s. PATIENT AGREED TO PT, REPORTED FEELING SLEEPY TODAY , REPORTED NOT SLEEPING WELL. O. PATIENT WORKED ON LE EX IN SUPINE ACROSS ALL PLANES, SLR, HIP ABD, KNEE FLEX, ANKLE PUMPS WITH LLE. WORKED ON BED MOB ROLLING SIDE TO SIDE WITH USE OF RAIL CGA, ABLE TO MOVE LE TO EOB, REQUIRED ASSIST WITH UPPER TRUNK TO SIT UP EOB WITH CUES TO USE LEFT ELBOW AND WRIST TO PUSH OFF.WORKED ON SLIDING BOARD TRANSFERS, EDUCATED ON SET UP OF SB, PATIENT WORKED ON JM FOR SCOOTING TRANSFERS TO . EDUCATED ON WC MOBILITY , TURNS, REACHING BACK ON ARM REST TO PROPEL WC, WORKED ON SIT TO STANDS IN PARALLEL BARS WITH MAXA, WITH CUES TO PUSH OF WC, SHIFT COM WITHIN BASE OF SUPPORT. STOOD 3 X 10 SEC. PATIENT WORKED ON TRANSFERS BACK TO BED WITH MIN A FOR SETUP AND SCOOTING ASSIST. EDUCATED ON OFFLOADING LLE WITH BOOT TO ALLOW PRESSURE ULCER TO HEAL. A. PATIENT IS PROGRESSING WITH PT, REQUIRES JM FOR BED MOB AND TRANSFERS, IMPROVEMENTS WITH WC PROPULSION , DEMONSTRATED DEC ACTIVITY TOLERANCE DUE TO LOW HGB P, CONTINUE WITH POC WITH AN EMPHASIS ON TRANSFERS AND STRENGTHENING Physical ExamGeneral appearance: alert, awake, orientedPsych: alert, normal affect, oriented x 3HEENT: anicteric, sclera clearNeck: supple, no JVDCardiovascular: S1/S2, no murmurRespiratory: aerating well, clear bilaterallyAbdomen: bowel sounds present, non-distended, soft, non-tenderSkin: no rash, R BKA wrapped healing. L ankle/foot wrapped with kerlixMusculoskeletal - general: Musculoskeletal - general: swelling (LLE, calve NT, homans neg), BUE 5/5, LLE4/5, R hip 3-Neuro/DIRECTOR OPERATING ROOM: alert, oriented X 3, CNII-XII intact ResultsFindings/Data:Laboratory Tests 09/06 09/05 09/05 09/05 09/05 0536 [...] (8.0 - 10.5 mg/dL) 7.9 L 09/04 09/04 09/04 09/04 09/04 2042 1557 1100 0816 0721 Chemistry POC Glucose (70 - 110 MG/DL) 103 128 H 107 99 87 09/03 09/03 09/03 09/03 09/03 1944 1622 [...] 1739 Occult Blood - COMP STOOL Recent Impressions:RADIOLOGY - XR ABDOMEN 1V (KUB) 09/04 1648 Report Impression - Status: SIGNED Entered: 09/04/2022 1757 IMPRESSION: Benign appearance of the abdomen.Impression By: [email or web address] - Roger Parra M.D.ULTRASOUND - DUP VEIN UNI/LTD 09/05 1146 Report Impression - Status: SIGNED Entered: 09/05/2022 1333 IMPRESSION: 1. No evidence of deep vein thrombosis. 2. Complex heterogeneous hypoechoic fluid collection in the left calf region measuring 8.4 x 2.8 x 2.5 cm; there is no internal vascularity or peripheral hyperemia. May represent a hematoma.Impression By: [email or web address] - Mert Ga M.D.RADIOLOGY - XR CHEST 1 V 09/05 1432 Report Impression - Status: SIGNED Entered: 09/05/2022 1515 IMPRESSION: Minimal bibasilar pulmonary opacitiesImpression By: TipTDO - Bishop Mares M.D. Diagnosis, Assessment PlanProblem List/A P: 1. Gangrene of right foot 2. Below-knee amputation of right lower extremity 3. MRSA bacteremia 4. Cellulitis of foot, right 5. DKA (diabetic ketoacidosis) 6. Hyperglycemia 7. ERIKA (acute kidney injury) 8. Postoperative pain 9. Acute anemia 10. Prostate abscess 11. Impaired functional mobility, balance, gait, and endurance Free Text A P:Assessment:Severe Gas gangrene right foot and right ankle associated with osteomyelitis andnecrotizing fasciitisS/p surgical debridement and washout4/6: S/p right BKA-Dr. Greenberggnificant impairment in self-care, ADLs and functional mobilityImpaired mobility and gaitAcute postoperative pain right BKA, left foot and ankle Diabetic polyneuropathyDKA, DM 2, poorly controlled, A1c greater than 14PADMRSA bacteremia/sepsis-treated on acuteAKISevere hyponatremia-resolvedHTNAcute on chronic anemia requiring multiple transfusions, possible GI bleedLeft calf hematomaEdema and clinical arthritis left ankleEarly decubitus to left heel/DTI dorsal left midfootProstatic abscess 08/26: S/p transrectal ultrasound aspiration of abscess and transurethral resection of prostate and unroofing of abscessEcho: EF 55-59%, grade 1 diastolic dysfunction09/02: JIMENA negative for vegetationMRSA OF NARESLeft calf hematoma Plan:-PLOF: Independent with transfers and gait-Amputee rehab program-Continue PT and OT-15/12 rehabilitation nursing care.-Case management for safe discharge planning.-Decubitus prevention-Early decubitus to left heel/DTI dorsal left midfoot-zinc oxide to the foot, foam, offloading, podiatry managing-DVT prophylaxis-subcutaneous heparin-Strict fall and safety precautions-Work on bed mobility, transfer training, ADLs, pre-gait and gait exercises-Increase endurance and strength-Monitor pain with therapies-OOB to chair-Monitor p.o. intake and nutrition, albumin 1.3, prealbumin less than 5, dietaryconsultation, protein supplements to promote healing-Continue antibiotics per ID-Tight glycemia control- endocrine on board, insulin adjustments-Endocrinology, ID, podiatry, cardiology, IM consulted-Pain management adjusting pain medications-Labs reviewed-Anemia, patient required multiple units of PRBCs on acute, FOBT positive-IV Protonix-consult GI-serial H H-no evidence of gross bleeding-discussed with Dr. TrinidadHbmknvzt-Mpzfxmuohiqj-oqsqqdlaj ojxczayj-QSZ-qnachg-CW Senokot and MiraLAX, DSP-Right FBU-ckjgbkn-gxsnomkh resolved, dressings changed texxb-qpnbuwg-ulewccju VOV-KIBC-QLSK OF NARES on Bactroban protocol-LLE edema-venous Doppler with complex heterogeneous hypoechoic fluid collectionin the left calf region measuring 8.4, 2.8, 2.5 cm suggestive of hematoma. HoldLasix x3 days. Joan wrap calf-Generalized edema-some shortness of breath and abdominal distention-cardiology gave a dose of IV Lasix-monitor urine output, daily weights-Chest x-ray with minimal basilar pulmonary rnnnonjhm-Dzrgpu-jfxwlkfyof 2 units of PRBC on 09/05-Advance therapies as tolerated-discussed treatment plan with patient and -Patient progressing but limited due to weakness requiring min assist with transfers with standby assist. Continue plan of care with emphasis on sliding board transfers. Total time 33 minutes greater than 50% of the time spent examining patient, discussing probable left calf hematoma per ultrasound, anemia, possible GI bleed, transfusion, edema, amputation rehab, rehab plan of care, goals, therapies, progress, labs, medications. EMR and MAR is reviewed. All questions answeredConsultants: cardiology, endocrinology, hospitalist, infectious disease, podiatryRehab attestation:Face to face exam completed. Treatment plan discussed with patient. Meets continued stay criteria. Agree with interdisciplinary treatment plan. Mj Vences 09/06/22 0857:Attestations Physician AttestationAgree w/findings plan:Patient seen and examined. Agree with the findings and plan as documented by ÁNGEL Tran edema- hematoma on US-hold heparin, joan wraps-monitor. ?GIB-appreciate GI input at 0858 at 2017 RPT #:[id number] OF REPORTPRProgress [id number]:24:00G.[id number] able for patient voawKOOJEWFCMKPDHA5644-12-75B71:58:34 [facility] 2022-09-05 18:58:00 [id number] iq0mZnl5Q64hJqflr8iqn47xh/B5833-70-52Q58:58:00 [facility] ([facility])Podiatry Progress NoteREPORT#:[id number] REPORT STATUS: SignedDATE:09/05/22 TIME: 1857 PATIENT: KARMA ROWLAND UNIT #: [id number]#: [id number] [place] [facility] [place]: [birth year] AGE: 56 SEX: M ATTEND: Mj Vences MDADM AUTHOR: Reyhani,Liam X DPM * ALL edits or amendments must be made on the electronic/computer document * SubjectiveChief complaint:left heel ulcer. left ankle painPatient reports: no chest pain, no cough, no dizziness, no heartburn, no itchingComments:doing well with therapy Objective GeneralVS:Last Documented: Result Date Time Pulse Ox 96 09/05 1848 B/P 151/75 09/05 1848 B/P Mean 100.6 09/05 1848 Pulse 91 09/05 1848 Temp 36.3 09/05 1644 Resp 17 09/05 1615 O2 Delivery Room air 09/05 1443 PATIENT WEIGHT: Weight (lb): 165Weight (oz): 5.55Weight (kg): 75.000 Medications:Active Meds + DC'd Last 24 HrsInsulin Glargine (Lantus/Semglee) 7 UNIT BEDTIME SUBQ Furosemide (LASIX 20MG INJ) 20 MG BLOOD-DOSE BETWEEN IV (CKD) Sodium Chloride (SODIUM CHLORIDE) 10 ML ASDIR IV Sodium Chloride (SODIUM CHLORIDE 0.9%) 500 ML ONCE ONE IV Furosemide (LASIX) 20 MG DAILY PO Pantoprazole Sodium (PROTONIX) 40 MG Q12HR IV Polyethylene Glycol (MIRALAX) 17 GM DAILY PO Sennosides (Senna Lax 8.6 MG TABLET) 8.6 MG DAILY PO Sodium Chloride (SODIUM CHLORIDE) 10 ML ASDIR PRN IV Pantoprazole (PROTONIX) 40 MG DAILY 0600 PO (DC) Amitriptyline HCl (ELAVIL) 25 MG BEDTIME PO Mupirocin (BACTROBAN 2% 22 GM OINTMENT) 1 APPLIC BID NASAL Zinc Oxide (ZINC OXIDE 30 GM OINTMENT) 1 APPLIC DAILY TOPICAL Insulin Glargine (Lantus/Semglee) 10 UNIT BEDTIME SUBQ (DC) Sterile Water (WATER FOR IRRIGATION) DRESSING CHANGE ASDIR PRN IRR Insulin Human Lispro (HUMALOG) 0 AC HS SUBQ Dextrose/Water (DEXTROSE 10% IN WATER) 125 ML ASDIR PRN IV (CKD) Dextrose/Water (DEXTROSE 10% IN WATER) 250 ML ASDIR PRN IV (CKD) Glucagon (GLUCAGON) 1 MG ASDIR PRN IM Vancomycin HCl (VANCOMYCIN HCL) 1,000 MG Q24H IV Sodium Chloride (SODIUM CHLORIDE 0.9%) 250 MLHydrocodone Bitart/Acetaminophen (NORCO 10/325) 1 TAB Q4H PRN PRN PO Hydromorphone HCl (DILAUDID) 1 MG Q6H PRN PRN IV Lidocaine (LIDODERM) 1 PATCH DAILY TOPICAL Insulin Human Lispro (HUMALOG) 5 UNIT AC SUBQ Miscellaneous Information (VANCOMYCIN PHARMACY TO DOSE) 1 EACH ASDIR IV (CKD) Heparin Sodium (HEPARIN 5000 UNITS/ML) 5,000 UNIT Q8HR SUBQ Cefepime HCl (MAXIPIME) 1 GM Q6H IV Sodium Chloride (SODIUM CHLORIDE) 10 MLAcetaminophen (TYLENOL) 650 MG Q6H PRN PRN PO Bisacodyl (DULCOLAX) 10 MG DAILY PRN PRN RECTAL Docusate Sodium (COLACE) 100 MG Q12H PRN PRN PO Hydralazine HCl (APRESOLINE) 10 MG Q6H PRN PRN IV Ondansetron HCl (ZOFRAN) 4 MG Q6H PRN PRN IV I O:24 hour I O ending at 0700: 09/05 0700 09/04 1900 Intake Total 250 Output Total 1000 900 Balance -750 -900 Intake, Oral 250 Number 0 Incontinent Voids Number Voids 0 Output, Urine 1000 900 Dietitian nutrition assessmentThe data set between the solid lines has been imported from the dietitian's assessment. BMI Calculated: 26.7Nutrition related diagnosis: Nutrition diagnosis details: Nutrition problem: Altered nutrition labsNutrition etiology: DMNutrition signs and symptoms: HYPER/HYPOGLYCEMIA, A1C >14Nutrition prescription: CONTINUE DM DIETDietitian name: Klaus Kaiser DIETAssessment completed: 09/03/22 Physical ExamGeneral appearance: alert, awake, orientedWound/incision: Location:left foot Site condition: dp/pt 2/4 left. light touch decreased left foot. ulcer starting at posterior left heel. eccymosis noted. early likely stage 1. left ankle has edema. pain with aggressive ROM left ankle.LE vascular pulse assess:2+ L posterior tibialis, 2+ L dorsalis pedis Considered stroke alert: noUlcer: Location: DTI dorsal left midfoot ResultsFindings/Data:Laboratory Tests: 09/05 09/05 09/05 09/04 1623 1149 [...] (37.5 - 50.7 %) 22.7 L Recent Impressions:ULTRASOUND - DUP VEIN UNI/LTD 09/05 1146 Report Impression - Status: SIGNED Entered: 09/05/2022 1333 IMPRESSION: 1. No evidence of deep vein thrombosis. 2. Complex heterogeneous hypoechoic fluid collection in the left calf region measuring 8.4 x 2.8 x 2.5 cm; there is no internal vascularity or peripheral hyperemia. May represent a hematoma.Impression By: TipABJames - Mert Ga M.D.RADIOLOGY - XR CHEST 1 V 09/05 1432 Report Impression - Status: SIGNED Entered: 09/05/2022 1515 IMPRESSION: Minimal bibasilar pulmonary opacitiesImpression By: Yared Mares M.D. Diagnosis, Assessment PlanFree Text A P:DM with neuropathyearly decub ulcer left heelOA/edema left ankleDTI dorsal left midfoot zinc oxide to foot and heelfoam to heelon IV abxoffloading bootace wraps to ankle Consultants: cardiology, endocrinology, hospitalist, infectious disease, podiatry at 1859 RPT #:[id number] OF REPORTPRProgress qpzf6727-16-21M60:58:00G.[id number] able for patient nzuwXMWPXDEODAVZPO7422-46-86R93:59:43 [facility] 2022-09-05 15:15:00 [id number] FKxx5moyn6qwQ/h1MBp6tQ+tzSzWe Vurkk+I8nzvzhwWoIOU30KZFvS+5414-44-17Y75:15:00 [facility])Endocrinology Progress NoteREPORT#:[id number] REPORT STATUS: SignedDATE:09/05/22 TIME: 151 PATIENT: KARMA ROWLAND UNIT #: [id number]#: [id number] [address] [birth year] AGE: 56 SEX: M ATTEND: Mj Vences MDADM AUTHOR: Braxton Chapin MD * ALL edits or amendments must be made on the electronic/computer document * SubjectivePatient reports: no complaints Objective GeneralVS:Last Documented: Result Date Time Pulse Ox 96 09/05 144 B/P 156/75 09/05 144 B/P Mean 102.0 09/05 144 O2 Delivery Room air 09/05 144 Temp 36.9 09/05 144 Pulse 93 09/05 1443 Resp 19 09/05 144 PATIENT WEIGHT: Weight (lb): 165Weight (oz): 5.55Weight (kg): 75.000 Medications:Active Meds + DC'd Last 24 HrsFurosemide (LASIX 20MG INJ) 20 MG BLOOD-DOSE BETWEEN IV (CKD) Sodium Chloride (SODIUM CHLORIDE) 10 ML ASDIR IV Sodium Chloride (SODIUM CHLORIDE 0.9%) 500 ML ONCE ONE IV Furosemide (LASIX) 20 MG DAILY PO Pantoprazole Sodium (PROTONIX) 40 MG Q12HR IV Polyethylene Glycol (MIRALAX) 17 GM DAILY PO Sennosides (Senna Lax 8.6 MG TABLET) 8.6 MG DAILY PO Sodium Chloride (SODIUM CHLORIDE) 10 ML ASDIR PRN IV Pantoprazole (PROTONIX) 40 MG DAILY 0600 PO (DC) Amitriptyline HCl (ELAVIL) 25 MG BEDTIME PO Mupirocin (BACTROBAN 2% 22 GM OINTMENT) 1 APPLIC BID NASAL Furosemide (LASIX 40 mg/4 mL INJECTION) 40 MG ONCE ONE IV (DC) Bisacodyl (DULCOLAX) 10 MG ONCE ONE RECTAL (DC) Zinc Oxide (ZINC OXIDE 30 GM OINTMENT) 1 APPLIC DAILY TOPICAL Insulin Glargine (Lantus/Semglee) 10 UNIT BEDTIME SUBQ Sterile Water (WATER FOR IRRIGATION) DRESSING CHANGE ASDIR PRN IRR Insulin Human Lispro (HUMALOG) 0 AC HS SUBQ Dextrose/Water (DEXTROSE 10% IN WATER) 125 ML ASDIR PRN IV (CKD) Dextrose/Water (DEXTROSE 10% IN WATER) 250 ML ASDIR PRN IV (CKD) Glucagon (GLUCAGON) 1 MG ASDIR PRN IM Vancomycin HCl (VANCOMYCIN HCL) 1,000 MG Q24H IV Sodium Chloride (SODIUM CHLORIDE 0.9%) 250 MLHydrocodone Bitart/Acetaminophen (NORCO 10/325) 1 TAB Q4H PRN PRN PO Hydromorphone HCl (DILAUDID) 1 MG Q6H PRN PRN IV Lidocaine (LIDODERM) 1 PATCH DAILY TOPICAL Insulin Human Lispro (HUMALOG) 5 UNIT AC SUBQ Miscellaneous Information (VANCOMYCIN PHARMACY TO DOSE) 1 EACH ASDIR IV (CKD) Heparin Sodium (HEPARIN 5000 UNITS/ML) 5,000 UNIT Q8HR SUBQ Cefepime HCl (MAXIPIME) 1 GM Q6H IV Sodium Chloride (SODIUM CHLORIDE) 10 MLAcetaminophen (TYLENOL) 650 MG Q6H PRN PRN PO Bisacodyl (DULCOLAX) 10 MG DAILY PRN PRN RECTAL Dextrose/Water (DEXTROSE 10% IN WATER) 125 ML ASDIR PRN IV (DC) Dextrose/Water (DEXTROSE 10% IN WATER) 250 ML ASDIR PRN IV (DC) Docusate Sodium (COLACE) 100 MG Q12H PRN PRN PO Glucagon (GLUCAGON) 1 MG ASDIR PRN IM (DC) Hydralazine HCl (APRESOLINE) 10 MG Q6H PRN PRN IV Ondansetron HCl (ZOFRAN) 4 MG Q6H PRN PRN IV Physical ExamGeneral appearance: alert, awake Diagnosis, Assessment PlanHospital course to date:Laboratory Tests: 09/05 09/05 09/04 09/04 09/04 1149 [...] 1739 Occult Blood - COMP STOOL Recent Impressions:RADIOLOGY - XR ABDOMEN 1V (KUB) 09/04 1648 Report Impression - Status: SIGNED Entered: 09/04/2022 1757 IMPRESSION: Benign appearance of the abdomen.Impression By: [email or web address] - Roger Parra M.D.ULTRASOUND - [facility] 09/05 1146 Report Impression - Status: SIGNED Entered: 09/05/2022 1333 IMPRESSION: 1. No evidence of deep vein thrombosis. 2. Complex heterogeneous hypoechoic fluid collection in the left calf region measuring 8.4 x 2.8 x 2.5 cm; there is no internal vascularity or peripheral hyperemia. May represent a hematoma.Impression By: [email or web address] - Mert Ga M.D.RADIOLOGY - XR CHEST 1 V 09/05 1432 Report Impression - Status: SIGNED Entered: 09/05/2022 1515 IMPRESSION: Minimal bibasilar pulmonary opacitiesImpression By: Yared Mares M.D. Laboratory Tests: 09/04 09/04 09/04 09/04 09/04 [...] COLB STOOL 1.Diabetes mellitus type 2 uncontrolled complications.2. Status post right BKA3. Status post gangrene of the right foot.4. Sepsis5. Prostate abscess.6. AnemiaBlood sugar 75-74 mg/dL.Adjust insulin dose.PT and OT. at 1516 RPT #:[id number] OF REPORTPRProgress ayom5042-15-09L91:15:00G.[id number] able for patient slivYXRKIDEBIRGYKC0162-24-54Y87:16:43 [facility] 2022-09-05 15:04:00 [id number] dCJtTrpUnVy61aB9/U9VkyxEuJhHa o4HABCjbAGee54NMTErp1oxoW6w6103-31-01X77:04:00 [facility] ([facility])Pain Management Progress NoteREPORT#:[id number] REPORT STATUS: SignedDATE:09/05/22 TIME: 1504 PATIENT: KARMA ROWLAND UNIT #: [id number]#: [id number] [address] [birth year] AGE: 56 SEX: M ATTEND: Mj Vences [facility] AUTHOR: Ben Klein * ALL edits or amendments must be made on the electronic/computer document * Ben Klein 09/05/22 1504:SubjectiveChief complaint:Patient seen and examined. Chart/MAR reviewed. Patient is doing well. Reports right BKA discomfort is okay with current medications. He is alternating oral and IV. Patient also slept better. Last night and neuropathy symptoms are improved after starting amitriptyline. Patient being seen for Acute postoperative pain, right foot and anklegangrene, requiring BKA, Constipation Patient is still requiring medications to help with managing currentproblems. Patient is requiring IV narcotics to help manage breakthrough pain No fever/chills, chest pain, orthopnea, nausea/vomiting, pruritus, orhallucinations.14 point ROS undertaken unremarkable except as noted Objective GeneralVS/I O:Vital SignsDate Temp Pulse Resp B/P B/P Mean Pulse Ox SbI654/13-09/05 36.5-37.1 84-93 13-19 139-167/67-80 91.0-108.7 96-99 Last [...] Urine 1000 900 PATIENT WEIGHT: Weight (lb): 165Weight (oz): 5.55Weight (kg): 75.000 Medications:Active Meds + DC'd Last 24 HrsFurosemide (LASIX 20MG INJ) 20 MG BLOOD-DOSE BETWEEN IV (CKD) Sodium Chloride (SODIUM CHLORIDE) 10 ML ASDIR IV Sodium Chloride (SODIUM CHLORIDE 0.9%) 500 ML ONCE ONE IV Furosemide (LASIX) 20 MG DAILY PO Pantoprazole Sodium (PROTONIX) 40 MG Q12HR IV Polyethylene Glycol (MIRALAX) 17 GM DAILY PO Sennosides (Senna Lax 8.6 MG TABLET) 8.6 MG DAILY PO Sodium Chloride (SODIUM CHLORIDE) 10 ML ASDIR PRN IV Pantoprazole (PROTONIX) 40 MG DAILY 0600 PO (DC) Amitriptyline HCl (ELAVIL) 25 MG BEDTIME PO Mupirocin (BACTROBAN 2% 22 GM OINTMENT) 1 APPLIC BID NASAL Furosemide (LASIX 40 mg/4 mL INJECTION) 40 MG ONCE ONE IV (DC) Bisacodyl (DULCOLAX) 10 MG ONCE ONE RECTAL (DC) Zinc Oxide (ZINC OXIDE 30 GM OINTMENT) 1 APPLIC DAILY TOPICAL Insulin Glargine (Lantus/Semglee) 10 UNIT BEDTIME SUBQ Sterile Water (WATER FOR IRRIGATION) DRESSING CHANGE ASDIR PRN IRR Insulin Human Lispro (HUMALOG) 0 AC HS SUBQ Dextrose/Water (DEXTROSE 10% IN WATER) 125 ML ASDIR PRN IV (CKD) Dextrose/Water (DEXTROSE 10% IN WATER) 250 ML ASDIR PRN IV (CKD) Glucagon (GLUCAGON) 1 MG ASDIR PRN IM Vancomycin HCl (VANCOMYCIN HCL) 1,000 MG Q24H IV Sodium Chloride (SODIUM CHLORIDE 0.9%) 250 MLHydrocodone Bitart/Acetaminophen (NORCO 10/325) 1 TAB Q4H PRN PRN PO Hydromorphone HCl (DILAUDID) 1 MG Q6H PRN PRN IV Lidocaine (LIDODERM) 1 PATCH DAILY TOPICAL Insulin Human Lispro (HUMALOG) 5 UNIT AC SUBQ Miscellaneous Information (VANCOMYCIN PHARMACY TO DOSE) 1 EACH ASDIR IV (CKD) Heparin Sodium (HEPARIN 5000 UNITS/ML) 5,000 UNIT Q8HR SUBQ Cefepime HCl (MAXIPIME) 1 GM Q6H IV Sodium Chloride (SODIUM CHLORIDE) 10 MLAcetaminophen (TYLENOL) 650 MG Q6H PRN PRN PO Bisacodyl (DULCOLAX) 10 MG DAILY PRN PRN RECTAL Dextrose/Water (DEXTROSE 10% IN WATER) 125 ML ASDIR PRN IV (DC) Dextrose/Water (DEXTROSE 10% IN WATER) 250 ML ASDIR PRN IV (DC) Docusate Sodium (COLACE) 100 MG Q12H PRN PRN PO Glucagon (GLUCAGON) 1 MG ASDIR PRN IM (DC) Hydralazine HCl (APRESOLINE) 10 MG Q6H PRN PRN IV Ondansetron HCl (ZOFRAN) 4 MG Q6H PRN PRN IV Physical ExamGeneral appearance: alert, awake, oriented, no acute distressHead/eyes: atraumatic, EOMI, normocephalic, normal conjunctiva/sclera, PERRLAENT: normal nose, normal pharynx, moist mucosal membranesNeck: full range of motion, no lymphadenopathy, supple/no meningismusCardiovascular: regular rate rhythmRespiratory: clear to auscultation, no distressAbdomen: soft, non-tender, no distention, active bowel sounds in all quarants. Abdomen quadrantsLLQ normal bowel sounds, LUQ normal bowel sounds, RLQ normal bowel sounds, RUQ normal bowel soundsExtremities: moves all, no edema, pedal pulsesNeuro/DIRECTOR OPERATING ROOM: 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, no sensory deficits, CNII-XII grossly intact Considered stroke alert: noSkin: dry, intact, no rash ResultsFindings/data:Laboratory Tests: 09/05 09/05 09/04 09/04 09/04 1149 [...] 1739 Occult Blood - COMP STOOL Recent Impressions:RADIOLOGY - XR ABDOMEN 1V (KUB) 09/04 1648 Report Impression - Status: SIGNED Entered: 09/04/2022 1757 IMPRESSION: Benign appearance of the abdomen.Impression By: [email or web address] - Roger Parra M.D.ULTRASOUND - [place] [facility] 09/05 1146 Report Impression - Status: SIGNED Entered: 09/05/2022 1333 IMPRESSION: 1. No evidence of deep vein thrombosis. 2. Complex heterogeneous hypoechoic fluid collection in the left calf region measuring 8.4 x 2.8 x 2.5 cm; there is no internal vascularity or peripheral hyperemia. May represent a hematoma.Impression By: [email or web address] - Mert Ga M.D. Diagnosis, Assessment PlanFree text A P:A/P:Patient is a 56 year old male who presents with: Past Medical History: Prostate abscess, right foot foot and ankle gangrene, diabetes, hypertension, hyperlipidemiaPast Surgical History: TURP, right BKAFamily History: NoncontributorySocial History: Denies tobacco, alcohol, or drug useAllergies: NKDA Recent prostate abscess-Status post TURP with unroofing of abscess-IV antibiotics with vancomycin until 09-24-2022 Acute postoperative pain, right foot and ankle gangrene, requiring BKA-Patient is at risk for further amputations or loss of limb due to comorbid conditions-Status post right BKA 08/28/2022-Tylenol 650 mg p.o. every 6 hours as needed pain scale 1 3-Sheldon 10/325 1 tablet p.o. every 4 hours as needed pain scale 4 10-Dilaudid 1 mg IV every 6 hours as needed pain scale 7 10, second line therapy-patient will require close monitoring while using IV narcotics for any deleterious effect-Lidoderm patch to left ankle daily-IV antibiotics with vancomycin until 09-24-2022-Local wound care-manageable Diabetic peripheral neuropathy-patient is based on adrenal insufficiency-amitriptyline 25mg PO QHS- Uncontrolled diabetes, diabetes with complications, recent DKA-Hemoglobin A1c 13.4-Recent right foot and ankle gangrene-Insulin sliding scale, FSBS, good glycemic control Hypertension-We will monitor hypertension and tachycardia due to pain, and hypotension as well as bradycardia secondary over sedation with narcotics-Hydralazine as needed- Elevated LFTs-08/20/22-AST 51, ALT 22-09/03/2022-AST 15, ALT 7-Patient will require close monitoring since he is using narcotics with Tylenol Impaired functional mobility, balance, gait, and endurance-PT/OT Constipation-We will monitor while utilizing opioid narcotic medications.-Adequate fluid intake also discussed.-Colace 100 mg p.o. twice daily as needed-Dulcolax 10 mg rectally daily as needed-manageable Patient has failed conservative medical therapy.Patient will require monitoring while utilize narcotic medications for any adverse effects, and will adjust as neededPlan of care discussed with patient and nurseAll diagnostics of last 24 hours been reviewed. Risks versus benefits of opioid medications were reviewed to include, but not limited to respiratory depression, accidental overdose, altered mental status, sudden , constipation which could result in bowel obstruction, seizures, withdrawal, dependency addiction, risk for falls. Case discussed with Dr Ng whom agrees. Thank you for the consultation. [place] DISABILITY HEARING OFFICER:-database searched, no information found Kingsley Ng 09/23/22 0654:Attestations Physician AttestationAgree w/findings plan:The patient was seen and examined by Ben Klein. I personally developed the care plan, which was continued by the mid-level provider. I was immediately available. at 1507 at 0657 RPT #:[id number] OF REPORTPRProgress wwpo1264-08-45T47:04:00G.[id number] able for patient baknNOZVRFESPQOHES9073-61-13I50:07:52 [facility] 2022-09-05 14:26:00 [id number] EHwpUF0ZgEJUSCclULcynrlBPhWhZ bDUzwb/PvQ+qeg1pCo6j6/Dc7y66344-71-42D25:26:00 [facility] ([facility]) Consultation NoteREPORT#:[id number] REPORT STATUS: SignedDATE:09/05/22 TIME: 142 PATIENT: KARMA ROWLAND UNIT #: [id number]#: [id number] [place] [facility] [place]DOB: [birth year] AGE: 56 SEX: M ATTEND: Mj Vences MDADM AUTHOR: Tiara Tillman RESEARCH MANUFACTURING OPERATOR * ALL edits or amendments must be made on the electronic/computer document * Tiara Tillman 09/05/22 1426:History of Present IllnessReason for consult:1. Positive FOBT2. Acute on chronic anemia with pRBCS transfused on 08/23, 08/26, and PI:Patient is a 56-year-old male with history of diabetes mellitus type 2 and hypertension who was initially admitted for altered mental status and right-sided foot infection. 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 The patient is anemic with current Hgb 7.1. He has received a total of 3 units pRBCs during this hospitalization. KUB on 09/04 was negative for acute GI process. The patient denies overt GIB, dark tarry stools, nausea, abdominal pain, or vomiting. He has never had EGD orcolonoscopy. History - Adult longitudinalAdditional medical history:DM 2 since age 33 DM neuropathy HTN hyperlipidemiaAdditional surgical history:as aboveAdditional family history:reviewed and non contributoryAlcohol use: Denies EtOH useDrug use: Denies recreational drugsSmoking status for patients 13 years old or older: Never SmokerOther social history: Local resident, Good social supportAllergies:Coded Allergies:No Known Allergies (03/23/11) Review of SystemsConstitutional:Denies: chills, fever. Skin:Denies: laceration, rash. Allergy/Immun:Denies: allergic reaction, anaphylaxis. Eyes:Denies: redness, discharge. ENT:Denies: mouth pain, sinus problem. GI:Denies: abdominal pain, hematemesis, hematochezia, melena, nausea, vomiting. Objective Physical ExamVS/I O:Last Documented: Result Date Time Pulse Ox 97 [...] Urine 1000 900 PATIENT WEIGHT: Weight (lb): 165Weight (oz): 5.55Weight (kg): 75.000 Medications:Active Meds + DC'd Last 24 HrsFurosemide (LASIX 20MG INJ) 20 MG BLOOD-DOSE BETWEEN IV (CKD) Sodium Chloride (SODIUM CHLORIDE) 10 ML ASDIR IV Sodium Chloride (SODIUM CHLORIDE 0.9%) 500 ML ONCE ONE IV Furosemide (LASIX) 20 MG DAILY PO Pantoprazole Sodium (PROTONIX) 40 MG Q12HR IV Polyethylene Glycol (MIRALAX) 17 GM DAILY PO Sennosides (Senna Lax 8.6 MG TABLET) 8.6 MG DAILY PO Sodium Chloride (SODIUM CHLORIDE) 10 ML ASDIR PRN IV Pantoprazole (PROTONIX) 40 MG DAILY 0600 PO (DC) Amitriptyline HCl (ELAVIL) 25 MG BEDTIME PO Mupirocin (BACTROBAN 2% 22 GM OINTMENT) 1 APPLIC BID NASAL Furosemide (LASIX 40 mg/4 mL INJECTION) 40 MG ONCE ONE IV (DC) Bisacodyl (DULCOLAX) 10 MG ONCE ONE RECTAL (DC) Zinc Oxide (ZINC OXIDE 30 GM OINTMENT) 1 APPLIC DAILY TOPICAL Insulin Glargine (Lantus/Semglee) 10 UNIT BEDTIME SUBQ Sterile Water (WATER FOR IRRIGATION) DRESSING CHANGE ASDIR PRN IRR Insulin Human Lispro (HUMALOG) 0 AC HS SUBQ Dextrose/Water (DEXTROSE 10% IN WATER) 125 ML ASDIR PRN IV (CKD) Dextrose/Water (DEXTROSE 10% IN WATER) 250 ML ASDIR PRN IV (CKD) Glucagon (GLUCAGON) 1 MG ASDIR PRN IM Vancomycin HCl (VANCOMYCIN HCL) 1,000 MG Q24H IV Sodium Chloride (SODIUM CHLORIDE 0.9%) 250 MLHydrocodone Bitart/Acetaminophen (NORCO 10/325) 1 TAB Q4H PRN PRN PO Hydromorphone HCl (DILAUDID) 1 MG Q6H PRN PRN IV Lidocaine (LIDODERM) 1 PATCH DAILY TOPICAL Insulin Human Lispro (HUMALOG) 5 UNIT AC SUBQ Miscellaneous Information (VANCOMYCIN PHARMACY TO DOSE) 1 EACH ASDIR IV (CKD) Heparin Sodium (HEPARIN 5000 UNITS/ML) 5,000 UNIT Q8HR SUBQ Cefepime HCl (MAXIPIME) 1 GM Q6H IV Sodium Chloride (SODIUM CHLORIDE) 10 MLAcetaminophen (TYLENOL) 650 MG Q6H PRN PRN PO Bisacodyl (DULCOLAX) 10 MG DAILY PRN PRN RECTAL Dextrose/Water (DEXTROSE 10% IN WATER) 125 ML ASDIR PRN IV (DC) Dextrose/Water (DEXTROSE 10% IN WATER) 250 ML ASDIR PRN IV (DC) Docusate Sodium (COLACE) 100 MG Q12H PRN PRN PO Glucagon (GLUCAGON) 1 MG ASDIR PRN IM (DC) Hydralazine HCl (APRESOLINE) 10 MG Q6H PRN PRN IV Ondansetron HCl (ZOFRAN) 4 MG Q6H PRN PRN IV General appearance: alert, awake, orientedHEENT: atraumatic, normocephalicNeck: full range of motion, non-tenderRespiratory: symmetric expansion, no distressAbdomen: non-tender, normal bowel sounds, soft, no distention, no guardingExtremities: right BKA Considered stroke alert: noSkin: dry ResultsFindings/Data:Laboratory Tests 09/05/22 0615:[Embedded Image Not Available]Laboratory Tests 09/05 09/05 09/04 09/04 1149 0615 [...] 1739 Occult Blood - COMP STOOL Radiology data:Recent Impressions:RADIOLOGY - XR ABDOMEN 1V (KUB) 09/04 1648 Report Impression - Status: SIGNED Entered: 09/04/2022 1757 IMPRESSION: Benign appearance of the abdomen.Impression By: [email or web address] - Roger Parra M.D.ULTRASOUND - [facility] [facility] 09/05 1146 Report Impression - Status: SIGNED Entered: 09/05/2022 1333 IMPRESSION: 1. No evidence of deep vein thrombosis. 2. Complex heterogeneous hypoechoic fluid collection in the left calf region measuring 8.4 x 2.8 x 2.5 cm; there is no internal vascularity or peripheral hyperemia. May represent a hematoma.Impression By: [email or web address] - Mert Ga M.D. Results: labs reviewed Diagnosis, Assessment PlanConsultants: cardiology, endocrinology, hospitalist, infectious disease, podiatry Free Text DxA P NotesFree Text DxA P Notes:1. Positive FOBT-KUB on 09/04 was negative for acute GI process. The patient denies overt GIB, dark tarry stools, nausea, abdominal pain, or vomiting. He isnot on anticoagulation therapy.-Continue PPI. The patient has never had EGD or colonoscopy, so may benefit fromendoscopic workup to rule out peptic ulcer disease vs vascular lesion vs malignancy2. Acute on chronic anemia-no overt GIB with current Hgb 7.1. He has received a total of 3 units pRBCs during this hospitalization-Monitor H/H-Monitor for GIB-Transfuse if HGB <7.03. Gangrene to right foot s/p right BKA4. Prostate abscess5. MRSA bacteremia6. History of DM Aleah Trinidad 10/06/22 0718:Diagnosis, Assessment Plan Free Text DxA P NotesFree Text DxA P Notes:Case discussed, along with examinatio and interview with LE Low.I agree with the plan and management as noted. at 1447 at 0718 RPT #:[id number] OF REPORTLIRerxzwrfgxll3002-60-34K72:26:00G.PDOC2 [id number] for patient lcftNHRVQOYVQSMZJG7408-70-76V15:48:27 [facility] 2022-09-05 14:25:00 [id number] iELVvO1JhNQaQmEfumHE94NTMQ0KX IEBDnX66uJt9d4YmzhXuDd9jzuS3879-34-88J21:25:00 [facility] ([facility])Infectious Dis. Progress NoteREPORT#:[id number] REPORT STATUS: SignedDATE:09/05/22 TIME: 1425 PATIENT: KARMA ROWLAND UNIT #: [id number]#: [id number] [address] [birth year] AGE: 56 SEX: M ATTEND: Mj Vences [facility] AUTHOR: Merry Wolff MD * ALL edits or amendments must be made on the electronic/computer document * SubjectiveHPI:PT is a 56yr old male with history of diabetes mellitus type 2, hypertension whowas admitted with altered mental status and right-sided foot infection. According to him, he noticed a blister on his right foot around 3 days prior to presentation. His foot got progressively more swollen and erythema extended proximally to his lateral foot and ankle. CT abdomen and pelvis with contrast is concerning for possible prostate abscess. CT of lower extremity without contrast shows extensive soft tissue edema with mottled gas in the subcutaneous and intramuscular compartments of the foot, compatible with gas-forming infection. Patient's blood cultures have come back positive for MRSA in 2 out of 2 sets. PT has had persistent (+)Ve cx for MRSA 08/18- 08/22. He underwent a debridement of his foot on 08/19 and cx grew MRSA. PT was started on Vancomycin and clindamycin on 08/18. His MRI showed a prostate abscess. 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 Pt underwent a transrectal aspiration and unroofing of prostate abscess 08/26 and cx grew Citrobacter, Enterococcus, MRSA. He also hada BKA of right leg 08/28. JIMENA done 09/02. Pt was transferred to Rehab on 09/02. 09/05 doing well, no changes overnightPatient reports:No: cough, diarrhea, fever, headache, nausea, shortness of breath, vomiting. Portions of this section were scribed by Jill Quintero on 09/05/22 at 1428 Objective GeneralVS/I O:Vital SignsDate Temp Pulse Resp B/P B/P Mean Pulse Ox AhV671/-09/05 97.7-98.8 84-89 13-18 139-167/67-80 91.0-108.7 97-99 Last Documented: Result Date Time Pulse Ox 97 09/05 0742 B/P 148/70 09/05 0742 B/P Mean 96.2 09/05 0742 O2 Delivery Room air 09/05 0742 Temp 98.8 09/05 0742 Pulse 89 09/05 0742 Resp 18 09/05 0742 Vital Signs: Date Time Temp Pulse Resp B/P B/P Pulse O2 O2 Flow FiO2 Mean Ox Delivery Rate 09/05 0742 [...] Urine 1000 900 PATIENT WEIGHT: Weight (lb): 165Weight (oz): 5.55Weight (kg): 75.000 Antibiotic start date:Antibiotic: daptomycin Start Date:08/28- Antibiotic: cefepime Start Date:09/01- Antibiotic: merremStart Date:08/27-09/01 Physical ExamHead/Eyes: atraumatic, clear cornea, EOMI, normal conjunctiva/sclera, normal eyelids/periorb, normocephalic, PERRLENT: moist mucosal membranes, normal dentitionNeck: full range of motionCardiovascular: normal heart sounds, regular rate rhythmRespiratory: clear to auscultation, aerating wellAbdomen: non-tender, normal bowel sounds, softExtremities: moves all, right BKA Left foot wound +dressing in placeNeuro/DIRECTOR OPERATING ROOM: alert, oriented X 3 Considered stroke alert: noSkin: dry, intact Portions of this section were scribed by Jill Quintero on 09/05/22 at 1428 Diagnosis, Assessment PlanFree Text A P:*MRSA bacteremia-Initial blood cultures from 08/18/2022 positive for MRSA in 2 out of 2 sets.-Repeat blood cultures 08/21/2022 are already positive for MRSA in 2 out of 2 sets, suggesting persistent high-grade bacteremia.-TTE 08/18/2022 negative for any obvious vegetations.-08/28 neg-JIMENA 09/02 neg*Prostatic abscess-s/p transrectal aspiration and unroofing on 08/26-cx MRSA, citrobacter (r-cefazolin) Enterococcus raffinosus (S-amp,pcn, vancomycin), bacteriodes*ERIKA*Hyponatremia*Diabetic neuropathy*Diabetes mellitus type 2*Hypertension 09/05-cont on Cefepime and Daptomycin til 09/24 for treatment of Prostate abscess-follow esr and crpConsultants: cardiology, endocrinology, hospitalist, infectious disease, podiatry Portions of this section were scribed by iJll Quintero on 09/05/22 at 1428 at 1108 [facility] #:[id number] OF REPORTPRProgress jenr6493-41-21I75:25:00G.[id number] able for patient rftyAOQHRQASAREWNP4742-14-44Z09:05:00 [facility] 2022-09-05 11:05:00 [id number] Gy9BSz0ZazWB6zs2wAX9K6/KISfi5 ZUmvoehoB3oc0Kzlh0VwK6rxg978482-46-16B77:05:00 [facility] ([facility]ospital[facility] Progress NoteREPORT#:[id number] REPORT STATUS: SignedDATE:09/05/22 TIME: 1105 PATIENT: KARMA ROWLAND UNIT #: [id number]#: [id number] [place]ED[place] [facility] [place]DOB: [birth year] AGE: 56 SEX: M ATTEND: Mj Vences [facility] AUTHOR: Wilbert Ramires MD * ALL edits or amendments must be made on the electronic/computer document * SubjectiveChief complaint:admitted to rehab. participating with therapy Review of SystemsAll systems rev neg: except as noted Objective GeneralVS/I O:Vital Signs: Date Time Temp Pulse Resp B/P B/P Pulse O2 O2 Flow FiO2 Mean Ox Delivery Rate 09/05 0742 [...] Urine 1000 900 PATIENT WEIGHT: Weight (lb): 165Weight (oz): 5.55Weight (kg): 75.000 Medications:Active Meds + DC'd Last 24 HrsFurosemide (LASIX) 20 MG DAILY PO Pantoprazole Sodium (PROTONIX) 40 MG Q12HR IV Polyethylene Glycol (MIRALAX) 17 GM DAILY PO Sennosides (Senna Lax 8.6 MG TABLET) 8.6 MG DAILY PO Sodium Chloride (SODIUM CHLORIDE) 10 ML ASDIR PRN IV Pantoprazole (PROTONIX) 40 MG DAILY 0600 PO (DC) Amitriptyline HCl (ELAVIL) 25 MG BEDTIME PO Mupirocin (BACTROBAN 2% 22 GM OINTMENT) 1 APPLIC BID NASAL Furosemide (LASIX 40 mg/4 mL INJECTION) 40 MG ONCE ONE IV (DC) Bisacodyl (DULCOLAX) 10 MG ONCE ONE RECTAL (DC) Zinc Oxide (ZINC OXIDE 30 GM OINTMENT) 1 APPLIC DAILY TOPICAL Insulin Glargine (Lantus/Semglee) 10 UNIT BEDTIME SUBQ Sterile Water (WATER FOR IRRIGATION) DRESSING CHANGE ASDIR PRN IRR Insulin Human Lispro (HUMALOG) 0 AC HS SUBQ Dextrose/Water (DEXTROSE 10% IN WATER) 125 ML ASDIR PRN IV (CKD) Dextrose/Water (DEXTROSE 10% IN WATER) 250 ML ASDIR PRN IV (CKD) Glucagon (GLUCAGON) 1 MG ASDIR PRN IM Vancomycin HCl (VANCOMYCIN HCL) 1,000 MG Q24H IV Sodium Chloride (SODIUM CHLORIDE 0.9%) 250 MLHydrocodone Bitart/Acetaminophen (NORCO 10/325) 1 TAB Q4H PRN PRN PO Hydromorphone HCl (DILAUDID) 1 MG Q6H PRN PRN IV Lidocaine (LIDODERM) 1 PATCH DAILY TOPICAL Insulin Human Lispro (HUMALOG) 5 UNIT AC SUBQ Miscellaneous Information (VANCOMYCIN PHARMACY TO DOSE) 1 EACH ASDIR IV (CKD) Heparin Sodium (HEPARIN 5000 UNITS/ML) 5,000 UNIT Q8HR SUBQ Cefepime HCl (MAXIPIME) 1 GM Q6H IV Sodium Chloride (SODIUM CHLORIDE) 10 MLAcetaminophen (TYLENOL) 650 MG Q6H PRN PRN PO Bisacodyl (DULCOLAX) 10 MG DAILY PRN PRN RECTAL Dextrose/Water (DEXTROSE 10% IN WATER) 125 ML ASDIR PRN IV (DC) Dextrose/Water (DEXTROSE 10% IN WATER) 250 ML ASDIR PRN IV (DC) Docusate Sodium (COLACE) 100 MG Q12H PRN PRN PO Glucagon (GLUCAGON) 1 MG ASDIR PRN IM (DC) Hydralazine HCl (APRESOLINE) 10 MG Q6H PRN PRN IV Ondansetron HCl (ZOFRAN) 4 MG Q6H PRN PRN IV Physical ExamGeneral appearance: alert, awake, orientedHead/Eyes: atraumatic, clear corneaNeck: full range of motion, non-tenderCardiovascular: normal capillary refill, normal heart sounds, regular rate rhythmRespiratory: aerating well, clear to auscultationAbdomen: non-tender, normal bowel soundsGenitourinary: no flank painExtremities: moves all, normal capillary refillMusculoskeletal: normal inspection, painless range of motionNeuro/DIRECTOR OPERATING ROOM: alert, oriented X 3, 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 Considered stroke alert: noSkin: dry, intactPsychiatry: normal affect, normal judgment/insight ResultsFindings/Data:Laboratory Tests 09/05 1557 Chemistry Sodium (134 - 147 mEq/L) [...] Occult Blood - COMP STOOL Diagnosis, Assessment PlanConsultants: cardiology, endocrinology, hospitalist, infectious disease, podiatry Free Text DxA P NotesFree text DxA P notes:Gangrene of right foot s/p Below- knee amputation Prostate abscessMRSA bacteremiaHx of Diabetes, Diabetic neuropathy PLANS: Continue with ABx as dierected- currently on Daptomycin and CefepimeContinue with PT/OT per primary Fall precautionsNutritional supportpain controlTight glycemia control- endocrine on board, insulin adjustmentsWound care as directedHepain PPXContinue with supportive / care follow hgb closely and transfuse as needed at 1106 RPT #:[id number] OF REPORTPRProgress [id number]:05:00G.[id number] able for patient [id number]:06:42 [facility]ACL 2022-09-05 11:02:00 [id number] JBMoFUVQShb7cO/HE9Kgk+LthGDpA [id number]1G50:02:00 [facility] ([facility])Cardiology Progress NoteREPORT#:[id number] REPORT STATUS: SignedDATE:09/05/22 TIME: 1102 PATIENT: KARMA ROWLAND UNIT #: [id number]#: [id number] [address] [birth year] AGE: 56 SEX: M ATTEND: Mj Vences [facility] AUTHOR: Rohit Benitez RESEARCH MANUFACTURING OPERATOR * ALL edits or amendments must be made on the electronic/computer document * Rohit Benitez 09/05/22 1102:SubjectiveChief complaint:weakness Free Text Subj NotesFree Text Subj Notes:Patient seen and evaluated. Pending lower extremity ultrasound. Overall improvement in shortness of breath. Objective GeneralVS/I O:24 hour I O ending at 0700: 09/05 0700 09/04 1900 Intake Total 250 Output Total 1000 900 Balance -750 -900 Intake, Oral 250 Number 0 Incontinent Voids Number Voids 0 Output, Urine 1000 900 Vital Signs: Date Time Temp Pulse Resp B/P B/P Pulse O2 O2 Flow FiO2 Mean Ox Delivery Rate 09/05 0742 98.8 89 18 148/70 96.2 97 Room air 09/04 2334 84 13 139/67 91.0 99 09/04 1703 97.7 89 18 154/70 98.1 98 Room air 09/04 1556 97.9 85 18 167/80 108.7 98 Room air PATIENT WEIGHT: Weight (lb): 165Weight (oz): 5.55Weight (kg): 75.000 Medications:Active Meds + DC'd Last 24 HrsFurosemide (LASIX) 20 MG DAILY PO Pantoprazole Sodium (PROTONIX) 40 MG Q12HR IV Polyethylene Glycol (MIRALAX) 17 GM DAILY PO Sennosides (Senna Lax 8.6 MG TABLET) 8.6 MG DAILY PO Sodium Chloride (SODIUM CHLORIDE) 10 ML ASDIR PRN IV Pantoprazole (PROTONIX) 40 MG DAILY 0600 PO (DC) Amitriptyline HCl (ELAVIL) 25 MG BEDTIME PO Mupirocin (BACTROBAN 2% 22 GM OINTMENT) 1 APPLIC BID NASAL Furosemide (LASIX 40 mg/4 mL INJECTION) 40 MG ONCE ONE IV (DC) Bisacodyl (DULCOLAX) 10 MG ONCE ONE RECTAL (DC) Zinc Oxide (ZINC OXIDE 30 GM OINTMENT) 1 APPLIC DAILY TOPICAL Insulin Glargine (Lantus/Semglee) 10 UNIT BEDTIME SUBQ Sterile Water (WATER FOR IRRIGATION) DRESSING CHANGE ASDIR PRN IRR Insulin Human Lispro (HUMALOG) 0 AC HS SUBQ Dextrose/Water (DEXTROSE 10% IN WATER) 125 ML ASDIR PRN IV (CKD) Dextrose/Water (DEXTROSE 10% IN WATER) 250 ML ASDIR PRN IV (CKD) Glucagon (GLUCAGON) 1 MG ASDIR PRN IM Vancomycin HCl (VANCOMYCIN HCL) 1,000 MG Q24H IV Sodium Chloride (SODIUM CHLORIDE 0.9%) 250 MLHydrocodone Bitart/Acetaminophen (NORCO 10/325) 1 TAB Q4H PRN PRN PO Hydromorphone HCl (DILAUDID) 1 MG Q6H PRN PRN IV Lidocaine (LIDODERM) 1 PATCH DAILY TOPICAL Insulin Human Lispro (HUMALOG) 5 UNIT AC SUBQ Miscellaneous Information (VANCOMYCIN PHARMACY TO DOSE) 1 EACH ASDIR IV (CKD) Heparin Sodium (HEPARIN 5000 UNITS/ML) 5,000 UNIT Q8HR SUBQ Cefepime HCl (MAXIPIME) 1 GM Q6H IV Sodium Chloride (SODIUM CHLORIDE) 10 MLAcetaminophen (TYLENOL) 650 MG Q6H PRN PRN PO Bisacodyl (DULCOLAX) 10 MG DAILY PRN PRN RECTAL Dextrose/Water (DEXTROSE 10% IN WATER) 125 ML ASDIR PRN IV (DC) Dextrose/Water (DEXTROSE 10% IN WATER) 250 ML ASDIR PRN IV (DC) Docusate Sodium (COLACE) 100 MG Q12H PRN PRN PO Glucagon (GLUCAGON) 1 MG ASDIR PRN IM (DC) Hydralazine HCl (APRESOLINE) 10 MG Q6H PRN PRN IV Ondansetron HCl (ZOFRAN) 4 MG Q6H PRN PRN IV Physical ExamGeneral appearance: alert, awake, orientedNeck: no bruit/NL carotids, no JVDCardiovascular: CV assessment: regular rate and rhythm, no ectopy, no gallopRespiratory: clear to auscultation, no distressAbdomen: soft, non-tenderLower extremity: LE assessment: edema, normal temperatureNeuro/DIRECTOR OPERATING ROOM: alert, oriented X 3 Considered stroke alert: noWound/incision: Location:right bkaPsychiatry: normal affect, normal judgment/insight, normal mood ResultsFindings/Data:Laboratory Tests 09/052 1557 Chemistry Sodium (134 - [...] 1739 Occult Blood - COMP STOOL Radiology data:Recent Impressions:RADIOLOGY - XR ABDOMEN 1V (KUB) 09/04 1648 Report Impression - Status: SIGNED Entered: 09/04/2022 721 IMPRESSION: Benign appearance of the abdomen.Impression By: [email or web address] Cr Parra M.D. Diagnosis, Assessment PlanConsultants: cardiology, endocrinology, hospitalist, infectious disease, podiatry Free Text DxA P NotesFree Text DxA P Notes:Impression: 1. Debility2. Infected right foot status post BKA3. Bacteremia4. Diabetes5. Hypertension 6. Anemia 07/2022: Echocardiogram with normal LVEF, grade 1 diastolic dysfunction, mildly dilated LA, and no significant valvular abnormalities Recommendation: Patient initially presented with DKA and sepsis. Diagnosed with right foot infection, underwent I D, now status post BKA. Patient had persistent bacteremia with MRSA, underwent JIMENA with negative findings of endocarditis. Patient now transferred to rehab for physical therapy. Known cardiac history ofhypertension and hyperlipidemia. Vital signs stable. Echocardiogram with normal LVEF, grade 1 diastolic dysfunction, mildly dilated LA, and no significant valvular abnormalities. Continue to monitor blood pressure trend. Continue wound care and IV antibiotic therapy. Continue PT/OT. Supportive care. 09/04: Patient complaining of shortness of breath, abdominal distention and lowerextremity edema. Renal function and electrolytes stable. Will give one-time dose of IV Lasix 40 mg. Blood pressure stable. Pending abdominal x-ray. Monitor intake and output. Check BMP in the morning. Supportive care. Plan ofcare discussed with patient, RN and Dr. Parham. 09/05: Patient responded well to IV Lasix, good urine output and improvement in shortness of breath. Chest x-ray ordered. Currently on Lasix 20 mg p.o. daily. Continue monitor renal function and electrolytes. Pending lower extremity Doppler for lower extremity edema. Continue PT/OT. Supportive care. Plan of care discussed with patient, RN and Dr. Parham. Napoleon Parham 09/06/22 1633:Diagnosis, Assessment PlanAdditional comments:Patient was seen and examined at bedside, agree with above assessment and plan as documented by nurse practitioner. Will follow. at 1601 at 1638 [facility] #:[id number] OF REPORTPRProgress [id number]:02:00G.[id number] able for patient dkrhVLTHCMRVPVFPQN4709-53-03E94:01:42 [facility] 2022-09-05 06:16:00 [id number] k7eLI+Tf2ptpWHii894sBJtliEN2304-11-87W92:16:00 [facility] ([facility])Rehab Progress NoteREPORT#:[id number] REPORT STATUS: SignedDATE:09/05/22 TIME: 0616 PATIENT: KARMA ROWLAND UNIT #: [id number]#: [id number] [address] [birth year] AGE: 56 SEX: M [facility] AUTHOR: Mj Vences MD * ALL edits or amendments must be made on the electronic/computer document * SubjectiveChief complaint:Rehabilitation follow-upDoing better, feels some abdominal distention but no painLeft leg with edemaHad BM as per patient and RNPatient very motivatedEatingDenies nausea, vomiting, fever, chills, chest pain, shortness of breathHistory of present illness:56 yo HAM with long h/o DM, and HTN who was admitted for fever, flulike symptomsand altered mental status on 08/18. He was doing well until about 3 days prior toadmission when he noted blister to have formed on the dorsum of his foot. His foot started progressively getting more swollen and the blisters started enlarging and extending to his lateral foot and ankle. He started feeling weak and nauseated. He was noted to have altered mentation and was brought to our ER.He was noted to be in DKA with Blood sugars greater than 600. He was seen by podiatry and surgery for BLE wounds and infection. He was treated in ICU for sepsis and DKA. He underwent incisional and excisional debridement of right footand right ankle by podiatry. Patient also found to have prostate abscess underwent transrectal ultrasound aspiration of abscess and transurethral resection of prostate and unroofing of abscess by urology Dr. Du. Endocrinology treated the DKA and blood sugars much improved. Patient's right foot was not salvageable and patient underwent right BKA by Dr. LEROY on 08/28. Patient blood cultures showed MRSA. Patient continued on antibiotics as per ID. MRI of the pelvis and foot completed. Patient required multiple PRBCs for anemia. Patient was found to have a possible small hematoma of the left calf onultrasound. He complains of pain and swelling of the left ankle. Patient hemodynamically stable and plans are to be transferred to stepdown unit. He is on heparin subcu for VTE. After surgery he is now being mobilized by PT and OT.He is wearing a maxine-tech orthotic for right knee/BKA protection. Prior to admission the patient was independent living in a single-story house with his spouse with a few steps up to front and back door. 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 is at bedside. Patient denies nausea, vomiting, fever, chills, chest pain, shortness of breath with dizziness. He is requiring IV Dilaudid for pain control. Mental status back to baseline. Pt is progressing slowly with therapy d/t weakness and pain, self care deficit, decreased endurance and balance, and decreased functional mobility. Pt requiring acute inpt rehab for multidisciplinary team of nursing, therapy, and physicians. Pt iswilling and able to partici- kathleen in 3 hr/day inpt rehab to d/c home safely. Pt's prior level of function was independent. Objective GeneralVS:Vital Signs: Date Time Temp Pulse Resp B/P B/P Pulse O2 O2 Flow FiO2 Mean Ox Delivery Rate 09/04 2334 84 13 139/67 91.0 99 09/04 1703 97.7 89 18 154/70 98.1 98 Room air 09/04 1556 97.9 85 18 167/80 108.7 98 Room air 09/04 0718 97.5 80 18 133/69 90.3 99 Room air PATIENT WEIGHT: Weight (lb): 165Weight (oz): 5.55Weight (kg): 75.000 Medications:Active Meds + DC'd Last 24 HrsFurosemide (LASIX) 20 MG DAILY PO Polyethylene Glycol (MIRALAX) 17 GM DAILY PO Sennosides (Senna Lax 8.6 MG TABLET) 8.6 MG DAILY PO Pantoprazole (PROTONIX) 40 MG DAILY 0600 PO Amitriptyline HCl (ELAVIL) 25 MG BEDTIME PO Mupirocin (BACTROBAN 2% 22 GM OINTMENT) 1 APPLIC BID NASAL Furosemide (LASIX 40 mg/4 mL INJECTION) 40 MG ONCE ONE IV (DC) Bisacodyl (DULCOLAX) 10 MG ONCE ONE RECTAL (DC) Zinc Oxide (ZINC OXIDE 30 GM OINTMENT) 1 APPLIC DAILY TOPICAL Insulin Glargine (Lantus/Semglee) 10 UNIT BEDTIME SUBQ Sterile Water (WATER FOR IRRIGATION) DRESSING CHANGE ASDIR PRN IRR Insulin Human Lispro (HUMALOG) 0 AC HS SUBQ Dextrose/Water (DEXTROSE 10% IN WATER) 125 ML ASDIR PRN IV (CKD) Dextrose/Water (DEXTROSE 10% IN WATER) 250 ML ASDIR PRN IV (CKD) Glucagon (GLUCAGON) 1 MG ASDIR PRN IM Vancomycin HCl (VANCOMYCIN HCL) 1,000 MG Q24H IV Sodium Chloride (SODIUM CHLORIDE 0.9%) 250 MLHydrocodone Bitart/Acetaminophen (NORCO 10/325) 1 TAB Q4H PRN PRN PO Hydromorphone HCl (DILAUDID) 1 MG Q6H PRN PRN IV Lidocaine (LIDODERM) 1 PATCH DAILY TOPICAL Insulin Human Lispro (HUMALOG) 5 UNIT AC SUBQ Miscellaneous Information (VANCOMYCIN PHARMACY TO DOSE) 1 EACH ASDIR IV (CKD) Heparin Sodium (HEPARIN 5000 UNITS/ML) 5,000 UNIT Q8HR SUBQ Cefepime HCl (MAXIPIME) 1 GM Q6H IV Sodium Chloride (SODIUM CHLORIDE) 10 MLAcetaminophen (TYLENOL) 650 MG Q6H PRN PRN PO Bisacodyl (DULCOLAX) 10 MG DAILY PRN PRN RECTAL Dextrose/Water (DEXTROSE 10% IN WATER) 125 ML ASDIR PRN IV (DC) Dextrose/Water (DEXTROSE 10% IN WATER) 250 ML ASDIR PRN IV (DC) Docusate Sodium (COLACE) 100 MG Q12H PRN PRN PO Glucagon (GLUCAGON) 1 MG ASDIR PRN IM (DC) Hydralazine HCl (APRESOLINE) 10 MG Q6H PRN PRN IV Ondansetron HCl (ZOFRAN) 4 MG Q6H PRN PRN IV Physical ExamGeneral appearance: alert, awake, no acute distressPsych: alert, normal affect, oriented x 3HEENT: anicteric, sclera clearNeck: supple, no JVDCardiovascular: S1/S2, no murmurRespiratory: aerating well, clear bilaterallyAbdomen: bowel sounds present, non-distended, soft, non-tenderSkin: no rash, R BKA wrapped healing. L ankle/foot wrapped with kerlixMusculoskeletal - general: Musculoskeletal - general: swelling (LLE, calve NT, homans neg), BUE 5/5, LLE4/5, R hip 3-Neuro/DIRECTOR OPERATING ROOM: alert, oriented X 3, CNII-XII intact ResultsFindings/Data:Laboratory Tests: 09/04 09/04 09/04 09/04 09/04 2042 1630 1557 1100 1031 Chemistry POC Glucose (70 - 110 MG/DL) 103 128 H 107 Hematology Hgb (12.5 - 16.9 g/dL) 7.7 L Hct (37.5 - 50.7 %) 23.7 L Toxicology Vancomycin Trough (10.0 - 20.0 mcg/mL) 12.8 09/04 09/04 0816 0721 Chemistry POC Glucose (70 - 110 MG/DL) 99 87 Microbiology:09/04 1739 STOOL: Occult Blood -positive Laboratory Tests 09/02 09/02 09/02 09/02 09/03 1513 1732 1908 1929 0415Chemistry Sodium (134 - 147 mEq/L) 135 Potassium [...] 1.30 Prealbumin (16.0 - 40.0 mg/dL) < 5.0Hematology WBC (4.5 - 11.0 x10 3/uL) 8.7 [...] % (Auto) (14.0 - 32.0 %) 15.1 [place] % (Auto) (4.8 - 9.0 %) 6.8 Eos % (Auto) (0.3 - 3.7 %) 2.3 Baso % (Auto) (0.0 - 2.0 %) 0.3 Neut # (Auto) (2.0 - 7.6 x10 3/uL) 6.51 Lymph # (Auto) (1.0 - 3.8 x10 3/uL) 1.31 [place] # (Auto) (0.1 - 0.8 x10 3/uL) 0.59 Eos # (Auto) (0.0 - 0.2 x10 3/uL) 0.20 Baso # (Auto) (0.0 - 0.2 x10 3/uL) 0.03 Abs Immat Gran (auto) (0.00 - 0.03 0.04x10 3/uL) Add Manual Diff NO Immature Gran % (0.0 - 2.0 %) 0.5 Nucleated RBC % (0 - 0 %) 0.0 Nucleated RBCs # (Man) (0.0 - 0.1 x10 3/uL) 0.00 09/03 09/03 09/03 09/03 09/03 0415 0518 [...] 09/05 09/05 09/05 1630 2042 0615 0615 1149Chemistry Sodium (134 - 147 mEq/L) 134 Potassium [...] 103 74 Calcium (8.0 - 10.5 mg/dL) 7.9Hematology Hgb (12.5 - 16.9 g/dL) 7.1 Hct (37.5 - 50.7 %) 22.7Toxicology Vancomycin Trough (10.0 - 20.0 mcg/mL) 12.8 Radiology data:Recent Impressions:RADIOLOGY - XR ABDOMEN 1V (KUB) 09/04 1648 Report Impression - Status: SIGNED Entered: 09/04/2022 8834 IMPRESSION: Benign appearance of the abdomen.Impression By: [email or web address] - Roger Parra M.D. Diagnosis, Assessment PlanProblem List/A P: 1. Gangrene of right foot 2. Below-knee amputation of right lower extremity 3. MRSA bacteremia 4. Cellulitis of foot, right 5. DKA (diabetic ketoacidosis) 6. Hyperglycemia 7. ERIKA (acute kidney injury) 8. Postoperative pain 9. Acute anemia 10. Prostate abscess 11. Impaired functional mobility, balance, gait, and endurance Free Text A P:Assessment:Severe Gas gangrene right foot and right ankle associated with osteomyelitis andnecrotizing fasciitisS/p surgical debridement and washout4: S/p right BKA-Dr. Greenberggnificant impairment in self-care, ADLs and functional mobilityImpaired mobility and gaitAcute postoperative pain right BKA, left foot and ankle Diabetic polyneuropathyDKA, DM 2, poorly controlled, A1c greater than 14PADMRSA bacteremia/sepsis-treated on acuteAKISevere hyponatremia-resolvedHTNAcute on chronic anemia requiring multiple transfusions, possible GI bleedLeft calf hematomaEdema and clinical arthritis left ankleEarly decubitus to left heel/DTI dorsal left midfootProstatic abscess 08/26: S/p transrectal ultrasound aspiration of abscess and transurethral resection of prostate and unroofing of abscessEcho: EF 55-59%, grade 1 diastolic dysfunction09/02: JIMENA negative for vegetationMRSA OF [place] edema Plan:-PLOF: Independent with transfers and gait-Amputee rehab program-Continue PT and OT-15/12 rehabilitation nursing care.-Case management for safe discharge planning.-Decubitus prevention-Early decubitus to left heel/DTI dorsal left midfoot-zinc oxide to the foot, foam, offloading, podiatry managing-DVT prophylaxis-subcutaneous heparin-Strict fall and safety precautions-Work on bed mobility, transfer training, ADLs, pre-gait and gait exercises-Increase endurance and strength-Monitor pain with therapies-OOB to chair-Monitor p.o. intake and nutrition, albumin 1.3, prealbumin less than 5, dietaryconsultation, protein supplements to promote healing-Continue antibiotics per ID-Tight glycemia control- endocrine on board, insulin adjustments-Endocrinology, ID, podiatry, cardiology, IM consulted-Pain management adjusting pain medications-Labs reviewed-WBC normal, hemoglobin 8, 6.8, 7.7, 7.1 platelets normal, chemistries good, creatinine 1.1, magnesium normal-Anemia, patient required multiple units of PRBCs on acute, FOBT positive-Start IV Protonix-consult GI-serial H H-no evidence of gross bleeding-discussedwith Dr. TrinidadJelvyswb-Bfmncgankjtv-lxcbhrojr qzvemdob-HID-bvxpux-CW Senokot and MiraLAX, DSP-Right XHM-buthgui-mlgrpwil resolved, dressings changed fypmp-byssoxl-bjzffebu LGA-PRHQ-PRFT OF NARES on Bactroban protocol-LLE edema-check venous Doppler-Generalized edema-some shortness of breath and abdominal distention-cardiology gave a dose of IV Lasix-monitor urine output, daily weights-Chest x-ray pending ordered by wnvvsp-Uskpfv-tgajepssjf 2 units of PRBC-discussed with medicine-see orders-Advance therapies as tolerated-discussed treatment plan with patient and -Patient progressing [...] AND SCOOTING ASSIST. PATIENT WORKED ON WC MOBWITH JM 150 FEET X 2 ASSIST FOR TURNS. PATIENT WORKED ON TRANSFERS BACK TO BED WITH USE OF SB, WITH MIN A FOR SAFETY, SET UP AND SCOOTING ASSIST, REQUIRED ASSIST WITH LE TO LAY SUPINE AND LEFT LLE IN OFFLOAD BOOT Total time 35 minutes greater than 50% of the time spent examining patient, discussing with patient and about anemia, possible GI bleed, transfusion, edema, amputation rehab, rehab plan of care, goals, therapies, progress, labs, medications. EMR and MAR is reviewed. All questions answeredOrders: Procedure Date/time Status HGB HCT 09/05 0400 Active PT FUNCTIONAL TRN 15 MIN 09/04 UNK Complete PT EXERCISE 15 MIN 09/04 UNK Complete OT FUNCTIONAL TRN 15 MIN 09/04 UNK Complete OT EXERCISE 15MIN 09/04 UNK Complete Consultants: cardiology, endocrinology, hospitalist, infectious disease, podiatryRehab attestation:Face to face exam completed. Treatment plan discussed with patient. Meets continued stay criteria. Agree with interdisciplinary treatment plan. at 1308 RPT #:[id number] OF REPORTPRProgress [id number]:16:00G.[id number] able for patient ggumRYVGADTIDJUNPC1807-50-73R55:09:05 [facility]ACL 2022-09-04 17:38:00 [id number] r6NhxYsMghRcZOEce+og91P1C6hKA RnIc+lWjN7JwxFsHWna8eaQW/OA0053-53-70D88:38:00 [facility])Endocrinology Progress NoteREPORT#:[id number] REPORT STATUS: SignedDATE:09/04/22 TIME: 1738 PATIENT: KARMA ROWLAND UNIT #: [id number]#: [id number] [address] [birth year] AGE: 56 SEX: M ATTEND: Mj Vences [facility] AUTHOR: Braxton Chapin MD * ALL edits or amendments must be made on the electronic/computer document * SubjectivePatient reports: no complaints Objective GeneralVS:Last Documented: Result Date Time Pulse Ox 98 09/04 1702 B/P 154/70 09/04 1702 B/P Mean 98.1 09/04 1702 O2 Delivery Room air 09/04 1702 Temp 36.5 09/04 1702 Pulse 89 09/04 170 Resp 18 09/04 1702 PATIENT WEIGHT: Weight (lb): 165Weight (oz): 5.55Weight (kg): 75.000 Medications:Active Meds + DC'd Last 24 HrsPolyethylene Glycol (MIRALAX) 17 GM DAILY PO Sennosides (Senna Lax 8.6 MG TABLET) 8.6 MG DAILY PO Amitriptyline HCl (ELAVIL) 25 MG BEDTIME PO Mupirocin (BACTROBAN 2% 22 GM OINTMENT) 1 APPLIC BID NASAL Furosemide (LASIX 40 mg/4 mL INJECTION) 40 MG ONCE ONE IV (DC) Bisacodyl (DULCOLAX) 10 MG ONCE ONE RECTAL (DC) Zinc Oxide (ZINC OXIDE 30 GM OINTMENT) 1 APPLIC DAILY TOPICAL Insulin Glargine (Lantus/Semglee) 10 UNIT BEDTIME SUBQ Sterile Water (WATER FOR IRRIGATION) DRESSING CHANGE ASDIR PRN IRR Insulin Human Lispro (HUMALOG) 0 AC HS SUBQ Dextrose/Water (DEXTROSE 10% IN WATER) 125 ML ASDIR PRN IV (CKD) Dextrose/Water (DEXTROSE 10% IN WATER) 250 ML ASDIR PRN IV (CKD) Glucagon (GLUCAGON) 1 MG ASDIR PRN IM Vancomycin HCl (VANCOMYCIN HCL) 1,000 MG Q24H IV Sodium Chloride (SODIUM CHLORIDE 0.9%) 250 MLHydrocodone Bitart/Acetaminophen (NORCO 10/325) 1 TAB Q4H PRN PRN PO Hydromorphone HCl (DILAUDID) 1 MG Q6H PRN PRN IV Lidocaine (LIDODERM) 1 PATCH DAILY TOPICAL Insulin Human Lispro (HUMALOG) 5 UNIT AC SUBQ Miscellaneous Information (VANCOMYCIN PHARMACY TO DOSE) 1 EACH ASDIR IV (CKD) Heparin Sodium (HEPARIN 5000 UNITS/ML) 5,000 UNIT Q8HR SUBQ Cefepime HCl (MAXIPIME) 1 GM Q6H IV Sodium Chloride (SODIUM CHLORIDE) 10 MLAcetaminophen (TYLENOL) 650 MG Q6H PRN PRN PO Bisacodyl (DULCOLAX) 10 MG DAILY PRN PRN RECTAL Dextrose/Water (DEXTROSE 10% IN WATER) 125 ML ASDIR PRN IV (DC) Dextrose/Water (DEXTROSE 10% IN WATER) 250 ML ASDIR PRN IV (DC) Docusate Sodium (COLACE) 100 MG Q12H PRN PRN PO Glucagon (GLUCAGON) 1 MG ASDIR PRN IM (DC) Hydralazine HCl (APRESOLINE) 10 MG Q6H PRN PRN IV Ondansetron HCl (ZOFRAN) 4 MG Q6H PRN PRN IV Physical ExamGeneral appearance: alert, awake Diagnosis, Assessment PlanHospital course to date:Laboratory Tests: 09/04 09/04 09/04 09/04 09/04 1630 [...] COLB STOOL 1.Diabetes mellitus type 2 uncontrolled complications.2. Status post right BKA3. Status post gangrene of the right foot.4. Sepsis5. Prostate abscess.6. AnemiaBlood sugar 87-10 7 mg/dL.Adjust insulin dose.PT and OT. Consultants: cardiology, endocrinology, hospitalist, infectious disease, podiatry at 1740 RPT #:[id number] OF REPORTPRProgress [id number]:38:00G.[id number] able for patient lgdtHZDOKGRZTYJSXC7554-35-12E38:41:14 [facility] 2022-09-04 15:24:00 [id number] Z/+0ijVfH8jrOs015ISF+a+E8S/Ny hZ6olyRvsSbK1dyVDsDUoek3taL6408-69-85T15:24:00 [facility] ([facility])Infectious Dis. Progress NoteREPORT#:[id number] REPORT STATUS: SignedDATE:09/04/22 TIME: 1524 PATIENT: KARMA ROWLAND UNIT #: [id number]#: [id number] ROOM/BED: 537-1DOB: [birth year] AGE: 56 SEX: M ATTEND: Mj Vences AUTHOR: Merry Wolff MD * ALL edits or amendments must be made on the electronic/computer document * SubjectiveHPI:PT is a 56yr old male with history of diabetes mellitus type 2, hypertension whowas admitted with altered mental status and right-sided foot infection. According to him, he noticed a blister on his right foot around 3 days prior to presentation. His foot got progressively more swollen and erythema extended proximally to his lateral foot and ankle. CT abdomen and pelvis with contrast is concerning for possible prostate abscess. CT of lower extremity without contrast shows extensive soft tissue edema with mottled gas in the subcutaneous and intramuscular compartments of the foot, compatible with gas-forming infection. Patient's blood cultures have come back positive for MRSA in 2 out of 2 sets. PT has had persistent (+)Ve cx for MRSA 08/18- 08/22. He underwent a debridement of his foot on 08/19 and cx grew MRSA. PT was started on Vancomycin and clindamycin on 08/18. His MRI showed a prostate abscess. 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 Pt underwent a transrectal aspiration and unroofing of prostate abscess 08/26 and cx grew Citrobacter, Enterococcus, MRSA. He also hada BKA of right leg 08/28. JIMENA done 09/02. Pt was transferred to Rehab on 09/02. 09/03 Pt is doing well, blood sugars are on the low side today09/04 Portions of this section were scribed by Jill Quintero on 09/04/22 at 1524 Objective GeneralVS/I O:Vital SignsDate Temp Pulse Resp B/P B/P Mean Pulse Ox FfT825/12-09/04 97.5-98.1 80-92 16-18 128-159/65-79 85.6-104.5 96-100 Last Documented: Result Date Time Pulse Ox 99 09/04 0618 B/P 133/69 09/04 717 B/P Mean 90.3 09/04 717 O2 Delivery Room air 09/04 717 Temp 97.5 09/04 717 Pulse 80 09/04 0618 Resp 18 09/04 717 Vital Signs: Date Time Temp Pulse Resp B/P B/P Pulse O2 O2 Flow FiO2 Mean Ox Delivery Rate 09/04 717 97.5 80 18 133/69 90.3 99 Room air 09/038 97.5 82 16 128/65 85.6 96 09/03 [...] scale Measurement Method PATIENT WEIGHT: Weight (lb): 165Weight (oz): 5.55Weight (kg): 75.000 Antibiotic start date:Antibiotic: daptomycin Start Date:08/28- Antibiotic: cefepime Start Date:09/01- Antibiotic: merremStart Date:08/27-09/01 Physical ExamGeneral appearance: alert, awake, orientedHead/Eyes: atraumatic, clear cornea, EOMI, normal conjunctiva/sclera, normal eyelids/periorb, normocephalic, PERRLENT: moist mucosal membranes, normal dentitionNeck: full range of motionCardiovascular: normal heart sounds, regular rate rhythmRespiratory: clear to auscultation, aerating wellAbdomen: non-tender, normal bowel sounds, softExtremities: moves all, right BKA Left foot wound +dressing in placeNeuro/DIRECTOR OPERATING ROOM: alert, oriented X 3 Considered stroke alert: noSkin: dry, intact ResultsFindings/Data:Laboratory Tests 09/04 09/04 09/04 09/03 09/03 1100 0816 0721 1944 1622 Chemistry POC Glucose (70 - 110 MG/DL) 107 99 87 124 H 135 H Laboratory Tests 09/04 09/04 1031 0540 Hematology Hgb (12.5 - 16.9 g/dL) 7.7 L 6.8 L Hct (37.5 - 50.7 %) 23.7 L 21.2 L Laboratory Tests 09/03 1836 Toxicology [...] 09/03 09/03 09/02 09/02 1116 0518 0415 1929 1908Chemistry Sodium (134 - 147 mEq/L) 135 Potassium [...] Prealbumin (16.0 - 40.0 mg/dL) < 5.0 LHematology WBC (4.5 - 11.0 x10 3/uL) 8.7 [...] % (Auto) (14.0 - 32.0 %) 15.1 [place] % (Auto) (4.8 - 9.0 %) 6.8 Eos % (Auto) (0.3 - 3.7 %) 2.3 Baso % (Auto) (0.0 - 2.0 %) 0.3 Neut # (Auto) (2.0 - 7.6 x10 3/uL) 6.51 Lymph # (Auto) (1.0 - 3.8 x10 3/uL) 1.31 [place] # (Auto) (0.1 - 0.8 x10 3/uL) 0.59 Eos # (Auto) (0.0 - 0.2 x10 3/uL) 0.20 Baso # (Auto) (0.0 - 0.2 x10 3/uL) 0.03 Abs Immat Gran (auto) (0.00 - 0.03 0.04 Hx10 3/uL) Add Manual Diff NO Immature Gran % (0.0 - 2.0 %) 0.5 Nucleated RBC % (0 - 0 %) 0.0 Nucleated RBCs # (Man) (0.0 - 0.1 0.00x10 3/uL) 09/02 1732 Chemistry POC Glucose (70 - 110 MG/DL) 102 Microbiology: Date/Time Procedure - Status Source Growth 09/04 1037 Occult Blood - COLB STOOL 09/03 0415 MRSA DNA Surveillance Screen - COMP NASAL Medication(s) Ordered:Anti-Infective Agents Sig/Jan Start time Last Medication Dose Route Stop Time Status Admin Vancomycin HCl 1,000 MG Q24H 09/03 1500 AC 09/03 Sodium Chloride 250 ML IV 09/24 2359 1702 Miscellaneous 1 EACH ASDIR 09/03 0130 CKD Information IV 10/03 0129 Cefepime HCl 1 GM Q6H 09/02 2100 AC 09/04 Sodium Chloride 10 ML IV 09/13 2058 0814 Blood Formation,Coagulation Sig/Jan Start time Last Medication Dose Route Stop Time Status Admin Heparin Sodium 5,000 UNIT Q8HR 09/02 2200 AC 09/04 SUBQ 10/02 215 0533 Cardiovascular Drugs Sig/Jan Start time Last Medication Dose Route Stop Time Status Admin Hydralazine HCl 10 MG Q6H PRN PRN 09/01 1330 AC IV 10/01 1329 Central Nervous System Agents Sig/Jan Start time Last Medication Dose Route Stop Time Status Admin Hydrocodone Bitart/ 1 TAB Q4H PRN PRN 09/03 1400 AC 09/04 Acetaminophen PO 10/18 1300 0815 Hydromorphone HCl 1 MG Q6H PRN PRN 09/03 1400 AC 09/03 IV 10/18 1300 2221 Acetaminophen 650 [...] Admin Polyethylene Glycol 17 GM DAILY 09/05 0900 AC PO 10/05 0859 Sennosides 8.6 MG DAILY 09/05 0900 AC PO 10/05 0859 Bisacodyl 10 MG [...] Lispro 5 UNIT AC 09/03 0730 AC 09/03 SUBQ 10/03 0729 1641 Insulin Human Lispro 0 AC HS 09/02 2100 DC SUBQ 10/02 205 Glucagon 1 MG ASDIR [...] AC 09/04 TOPICAL 10/04 0859 1340 Dose Instructions:(1)Sterile Water: DRESSING CHANGE Microbiology:09/04 1037 STOOL: Occult Blood - COLB09/03 0415 NASAL: MRSA DNA Surveillance Screen - COMP Portions of this section were scribed by Jill Quintero on 09/04/22 at 1524 Diagnosis, Assessment PlanFree Text A P:*MRSA bacteremia-Initial blood cultures from 08/18/2022 positive for MRSA in 2 out of 2 sets.-Repeat blood cultures 08/21/2022 are already positive for MRSA in 2 out of 2 sets, suggesting persistent high-grade bacteremia.-TTE 08/18/2022 negative for any obvious vegetations.-08/28 neg-JIMENA 09/02 pending results*Prostatic abscess-s/p transrectal aspiration and unroofing on 08/26-cx MRSA, citrobacter (r-cefazolin) Enterococcus raffinosus (S-amp,pcn, vancomycin), bacteriodes*ERIKA*Hyponatremia*Diabetic neuropathy*Diabetes mellitus type 2*Hypertension 09/03Follow JIMENA results; may need 6 weeks of daptomycin if (+)VE-cont on Cefepime and Daptomycin til 09/24 for treatment of Prostate abscess-follow esr and crpConsultants: cardiology, endocrinology, hospitalist, infectious disease, podiatry Portions of this section were scribed by Jill Quintero on 09/04/22 at 1524 at 1700 RPT #:[id number] OF REPORTPRProgress [id number]:24:00G.[id number] able for patient rtjuUKAQVPKRHJBJGS9291-16-84R12:02:20 [facility] 2022-09-04 15:13:00 [id number] vUmtZubE4MTy7rdv3uN6f4Ml16/yK qV6WqP162fhxR2Zwe5D5argY2wl6836-82-36K01:13:00 [facility] ([facility])Pain Management Progress NoteREPORT#:[id number] REPORT STATUS: SignedDATE:09/04/22 TIME: 1512 PATIENT: KARMA ROWLAND UNIT #: [id number]#: [id number] [address] [birth year] AGE: 56 SEX: M ATTEND: Mj Vences [facility] AUTHOR: Ben Klein * ALL edits or amendments must be made on the electronic/computer document * Ben Klein 09/04/22 1513:SubjectiveChief complaint:Patient seen and examined. Chart/MAR reviewed. Patient is working with physical therapy. Jeannie explaine to use the Sheldon more often to help with his BKA discomfort. He is still requiring IV narcotics as well. He does express some burning/stinging in his leg today, moderate intensity, discomfort at rest, no exacerbate factors or alleviating factors. We discussedstarting something for neuropathy. Patient being seen for Acute postoperative pain, right foot and ankle gangrene, requiring BKA, Constipation Patient is still requiring medications to help with managing current problems. Patient is requiring IV narcotics to help manage breakthrough pain No fever/chills, chest pain, orthopnea, nausea/vomiting, pruritus, or hallucinations.14 point ROS undertaken unremarkable except as noted Objective GeneralVS/I O:Vital SignsDate Temp Pulse Resp B/P B/P Mean Pulse Ox IyF715/12-09/04 36.4-36.7 80-92 16-18 128-159/65-79 85.6-104.5 96-100 Last Documented: Result Date Time Pulse Ox 99 09/04 717 B/P 133/69 09/04 717 B/P Mean 90.3 09/04 717 O2 Delivery Room air 09/04 717 Temp 36.4 09/04 717 Pulse 80 09/04 717 Resp 18 09/04 717 24 hour I O ending at 0700: 09/04 0700 09/03 1900 Intake Total 598 Output Total 400 Balance 198 Intake, Oral 598 Number 0 Incontinent Voids Number Voids 0 Output, Urine 400 Patient 75 kg Weight Weight Bed scale Measurement Method PATIENT WEIGHT: Weight (lb): 165Weight (oz): 5.55Weight (kg): 75.000 Medications:Active Meds + DC'd Last 24 HrsPolyethylene Glycol (MIRALAX) 17 GM DAILY PO Sennosides (Senna Lax 8.6 MG TABLET) 8.6 MG DAILY PO Mupirocin (BACTROBAN 2% 22 GM OINTMENT) 1 APPLIC BID NASAL (UNV) Bisacodyl (DULCOLAX) 10 MG ONCE ONE RECTAL (UNV) Zinc Oxide (ZINC OXIDE 30 GM OINTMENT) 1 APPLIC DAILY TOPICAL Insulin Glargine (Lantus/Semglee) 10 UNIT BEDTIME SUBQ Sterile Water (WATER FOR IRRIGATION) DRESSING CHANGE ASDIR PRN IRR Insulin Human Lispro (HUMALOG) 0 AC HS SUBQ Dextrose/Water (DEXTROSE 10% IN WATER) 125 ML ASDIR PRN IV (CKD) Dextrose/Water (DEXTROSE 10% IN WATER) 250 ML ASDIR PRN IV (CKD) Glucagon (GLUCAGON) 1 MG ASDIR PRN IM Vancomycin HCl (VANCOMYCIN HCL) 1,000 MG Q24H IV Sodium Chloride (SODIUM CHLORIDE 0.9%) 250 MLHydrocodone Bitart/Acetaminophen (NORCO 10/325) 1 TAB Q4H PRN PRN PO Hydromorphone HCl (DILAUDID) 1 MG Q6H PRN PRN IV Lidocaine (LIDODERM) 1 PATCH DAILY TOPICAL Insulin Human Lispro (HUMALOG) 5 UNIT AC SUBQ Miscellaneous Information (VANCOMYCIN PHARMACY TO DOSE) 1 EACH ASDIR IV (CKD) Heparin Sodium (HEPARIN 5000 UNITS/ML) 5,000 UNIT Q8HR SUBQ Cefepime HCl (MAXIPIME) 1 GM Q6H IV Sodium Chloride (SODIUM CHLORIDE) 10 MLInsulin Human Lispro (HUMALOG) 0 AC HS SUBQ (DC) Acetaminophen (TYLENOL) 650 MG Q6H PRN PRN PO Bisacodyl (DULCOLAX) 10 MG DAILY PRN PRN RECTAL Dextrose/Water (DEXTROSE 10% IN WATER) 125 ML ASDIR PRN IV (CKD) Dextrose/Water (DEXTROSE 10% IN WATER) 250 ML ASDIR PRN IV (CKD) Docusate Sodium (COLACE) 100 MG Q12H PRN PRN PO Glucagon (GLUCAGON) 1 MG ASDIR PRN IM Hydralazine HCl (APRESOLINE) 10 MG Q6H PRN PRN IV Ondansetron HCl (ZOFRAN) 4 MG Q6H PRN PRN IV Physical ExamGeneral appearance: alert, awake, oriented, no acute distressHead/eyes: atraumatic, EOMI, normocephalic, normal conjunctiva/sclera, PERRLAENT: normal pharynx, moist mucosal membranesNeck: full range of motion, no lymphadenopathy, supple/no meningismusCardiovascular: regular rate rhythmRespiratory: clear to auscultation, no distressAbdomen: soft, non-tender, no distention, active bowel sounds in all quarants. Abdomen quadrantsLLQ normal bowel sounds, LUQ normal bowel sounds, RLQ normal bowel sounds, RUQ normal bowel soundsExtremities: moves all, no edema, pedal pulsesNeuro/DIRECTOR OPERATING ROOM: 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, no sensory deficits, CNII-XII grossly intact Considered stroke alert: noSkin: dry, intact, no rash ResultsFindings/data:Laboratory Tests: 09/04 09/04 09/04 09/04 09/04 1100 [...] Occult Blood - COLB STOOL Diagnosis, Assessment PlanFree text A P:A/P:Patient is a 56 year old male who presents with: Past Medical History: Prostate abscess, right foot foot and ankle gangrene, diabetes, hypertension, hyperlipidemiaPast Surgical History: TURP, right BKAFamily History: NoncontributorySocial History: Denies tobacco, alcohol, or drug useAllergies: NKDA Recent prostate abscess-Status post TURP with unroofing of abscess-IV antibiotics with vancomycin until 09-24-2022 Acute postoperative pain, right foot and ankle gangrene, requiring BKA-Patient is at risk for further amputations or loss of limb due to comorbid conditions-Status post right BKA 08/28/2022-Tylenol 650 mg p.o. every 6 hours as needed pain scale 1 3-Sheldon 10/325 1 tablet p.o. every 4 hours as needed pain scale 4 10-Dilaudid 1 mg IV every 6 hours as needed pain scale 7 10, second line therapy-patient will require close monitoring while using IV narcotics for any deleterious effect-Lidoderm patch to left ankle daily-IV antibiotics with vancomycin until 09-24-2022-Local wound care-manageable Diabetic peripheral neuropathy-patient is based on adrenal insufficiency-will start amitriptyline 25mg PO QHS- Uncontrolled diabetes, diabetes with complications, recent DKA-Hemoglobin A1c 13.4-Recent right foot and ankle gangrene-Insulin sliding scale, FSBS, good glycemic control Hypertension-We will monitor hypertension and tachycardia due to pain, and hypotension as well as bradycardia secondary over sedation with narcotics-Hydralazine as needed- Elevated LFTs-08/20/22-AST 51, ALT 22-09/03/2022-AST 15, ALT 7-Patient will require close monitoring since he is using narcotics with Tylenol Impaired functional mobility, balance, gait, and endurance-PT/OT Constipation-We will monitor while utilizing opioid narcotic medications.-Adequate fluid intake also discussed.-Colace 100 mg p.o. twice daily as needed-Dulcolax 10 mg rectally daily as needed-manageable Patient has failed conservative medical therapy.Patient will require monitoring while utilize narcotic medications for any adverse effects, and will adjust as neededPlan of care discussed with patient and nurseAll diagnostics of last 24 hours been reviewed. Risks versus benefits of opioid medications were reviewed to include, but not limited to respiratory depression, accidental overdose, altered mental status, sudden , constipation which could result in bowel obstruction, seizures, withdrawal, dependency addiction, risk for falls. Case discussed with Dr Ng whom agrees. Thank you for the consultation. [place] DISABILITY HEARING OFFICER:-database searched, no information found Kingsley Ng 09/23/22 0653:Attestations Physician AttestationAgree w/findings plan:The patient was seen and examined by Ben Klein. I personally developed the care plan, which was continued by the mid-level provider. I was immediately available. at 1526 at 0656 RPT #:[id number] OF REPORTPRProgress [id number]:13:00G.[id number] able for patient jsbkTLPYYXHFMOVTJD8582-60-79O14:29:46 [facility] 2022-09-04 12:35:00 [id number]+Pf u2bSHFoAFL7rVFg7qjXcOS5IoEDW5 QQHSIhXZ+CJHwfNABpucpbVceFw9608-60-89P42:35:00 [facility] Prog.Note-VancomycinREPORT#:[id number] REPORT STATUS: SignedDATE:09/04/22 TIME: 1235 PATIENT: KARMA ROWLAND UNIT #: [id number]#: [id number] [address] [birth year] AGE: 56 SEX: M ATTEND: Mj Vences [facility] AUTHOR: Wilian Jasso donna * ALL edits or amendments must be made on the electronic/computer document * Vancomycin Vancomycin Medication TherapyGoal: AUC 400-600 mg*hr/LIndication for treatment:OM and MRSA BacteremiaCurrent therapy:vanc 1 g IV Q24HVS and I/O:Vital SignsDate Temp Pulse Resp B/P B/P Mean Pulse Ox OpT017/-09/04 97.3-99.1 80-92 16-18 116-164/50-85 72.3-111.0 94-100 72 hours ending at 0700 09/04 0700 09/03 1900 09/03 0700 09/02 1900 09/02 09/01 0700 1900Intake 598 240TotalOutput 400 850TotalBalance 198 -610 Intake, 598 240OralNumber 0 0IncontinentVoidsNumber 0 1VoidsOutput, 400 850UrinePatient 75 kgWeightWeight Bed scaleMeasurementMethod 72 Hour I O Total 09/04 0700 09/03 0700 09/02 0700 Intake Total 598 240 Output Total 400 850 Balance 198 -610 Labs:Laboratory Tests: 09/03 183 Toxicology Vancomycin Peak (30 - 40 MCG/ML) 27.4 L Laboratory Test : 09/03 414 Chemistry BUN (7 - 18 mg/dL) 22 H Creatinine (0.6 - 1.3 mg/dL) 1.1 Hematology WBC (4.5 - 11.0 x10 3/uL) 8.7 Microbiology:09/04 1037 STOOL: Occult Blood - COLB09/03 0415 NASAL: MRSA DNA Surveillance Screen - COMP Treatment plan: consult, cont current regimen/doseRegimen:56yr old male with history of diabetes mellitus [...] extremity without contrast shows extensive soft tissue edema with mottled gas in the subcutaneous and intramuscular compartments of the foot, compatible with gas-forming infection. Patient's blood cultures have come back positive for MRSA in2 out of 2 sets. PT has had persistent (+)Ve cx for MRSA 08/18- 08/22. He underwent a debridement of his foot on 08/19 and cx grew MRSA. PT was started onVancomycin and clindamycin on 08/18. His MRI showed a prostate abscess. 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 Patient is s/p ICU stay with merrem/daptomycin. ID adjusting regimen to cefepime/vancomycin. Pharmacy consulted todose vancomycin. Consulting provider: Dr. Padillaication: MRSA BacteremiaGoal: AUC 400-600 mcg*hr/ml A/P 09/03:* [facility] transferred [facility] rehab. * Afebrile, WBC 8.7 * 09/03 BUN 22, SCr 1.1, eCrCl 66 ml/min, UOP 400 ml/24hrs* Micro: 08/26 prostate abscess: C farmeri, MRSA, E raffinosus. 08/18, 08/19, 08/21, 08/22, 08/25 blood MRSRA. 08/28 blood - NGTD, MRSA screen neg* Imagin/30 MRI - OM of talus, caeianeus and navicular bone; JIMENA - negativefor endocarditis * Regimen: End date 09/24 per ID. Pt was on vanc 08/18 to 08/24. Regimen then adjusted to daptomycin and teflaro on 08/25. Vanc restarted on 09/01 with vancomycin 1 g IV q24h. * Monitoring: Vanc peak on 09/03 at 1830 = 27.7 mcg/ml, drawn 30 mins after infusion. Vanc trough to be due 09/04 at 1630 (d/w RN) AUC Goal 400-600 mcg*hr/ml.* Pharmacy will monitor and adjust dose as needed. Thanks for the consult. at 1237 RPT #:[id number] OF REPORTPRProgress vbjd2604-42-89G11:35:00G.[id number] able for patient hhlbKETBQQCWOXOVDB7363-16-11P12:38:09 [facility] 2022-09-04 10:37:00 [id number] IQKxGI2/Miw72esKjzjt9DoRkdpo1 5rKHNpAPvS1F9hxJCzlbxYyBA7q1207-52-55F75:37:00 [facility] ([facility])Cardiology Progress NoteREPORT#:[id number] REPORT STATUS: SignedDATE:09/04/22 TIME: 1037 PATIENT: KARMA ROWLAND UNIT #: [id number]#: [id number] [address] [birth year] AGE: 56 SEX: M ATTEND: Mj Vences MDADM AUTHOR: Rohit Benitez RESEARCH MANUFACTURING OPERATOR * ALL edits or amendments must be made on the electronic/computer document * Rohit Benitez 09/04/22 1037:SubjectiveChief complaint:weakness Free Text Subj NotesFree Text Subj Notes:Patient seen and evaluated. Resting in bed, complaining of abdominal distentionand leg swelling. Denies chest pain or pressure. Objective GeneralVS/I O:24 hour I O ending at 0700: 09/04 0700 09/03 1900 Intake Total 598 Output Total 400 Balance 198 Intake, Oral 598 Number 0 Incontinent Voids Number Voids 0 Output, Urine 400 Patient 165 lb Weight Weight Bed scale Measurement Method Vital Signs: Date Time Temp Pulse Resp B/P B/P Pulse O2 O2 Flow FiO2 Mean Ox Delivery Rate 09/04 717 97.5 80 18 133/69 90.3 99 Room air 09/03 2328 97.5 82 16 128/65 85.6 96 09/03 1920 98.1 92 16 154/79 103.6 97 09/03 1621 97.5 89 17 159/77 104.5 100 PATIENT WEIGHT: Weight (lb): 165Weight (oz): 5.55Weight (kg): 75.000 Medications:Active Meds + DC'd Last 24 HrsZinc Oxide (ZINC OXIDE 30 GM OINTMENT) 1 APPLIC DAILY TOPICAL Insulin Glargine (Lantus/Semglee) 10 UNIT BEDTIME SUBQ Sterile Water (WATER FOR IRRIGATION) DRESSING CHANGE ASDIR PRN IRR Insulin Human Lispro (HUMALOG) 0 AC HS SUBQ Dextrose/Water (DEXTROSE 10% IN WATER) 125 ML ASDIR PRN IV (CKD) Dextrose/Water (DEXTROSE 10% IN WATER) 250 ML ASDIR PRN IV (CKD) Glucagon (GLUCAGON) 1 MG ASDIR PRN IM Vancomycin HCl (VANCOMYCIN HCL) 1,000 MG Q24H IV Sodium Chloride (SODIUM CHLORIDE 0.9%) 250 MLHydrocodone Bitart/Acetaminophen (NORCO 10/325) 1 TAB Q4H PRN PRN PO Hydromorphone HCl (DILAUDID) 1 MG Q6H PRN PRN IV Lidocaine (LIDODERM) 1 PATCH DAILY TOPICAL Insulin Human Lispro (HUMALOG) 5 UNIT AC SUBQ Miscellaneous Information (VANCOMYCIN PHARMACY TO DOSE) 1 EACH ASDIR IV (CKD) Heparin Sodium (HEPARIN 5000 UNITS/ML) 5,000 UNIT Q8HR SUBQ Cefepime HCl (MAXIPIME) 1 GM Q6H IV Sodium Chloride (SODIUM CHLORIDE) 10 MLInsulin Glargine (Lantus/Semglee) 15 UNIT BEDTIME SUBQ (DC) Insulin Human Lispro (HUMALOG) 0 AC HS SUBQ (DC) Vancomycin HCl (VANCOMYCIN HCL) 1,000 MG DAILY 1400 IV (DC) Sodium Chloride (SODIUM CHLORIDE 0.9%) 250 MLHydromorphone HCl (DILAUDID) 1 MG Q3H PRN PRN IV (DC) Hydromorphone HCl (DILAUDID) 0.5 MG Q3H PRN PRN IV (DC) Acetaminophen (TYLENOL) 650 MG Q6H PRN PRN PO Bisacodyl (DULCOLAX) 10 MG DAILY PRN PRN RECTAL Dextrose/Water (DEXTROSE 10% IN WATER) 125 ML ASDIR PRN IV (CKD) Dextrose/Water (DEXTROSE 10% IN WATER) 250 ML ASDIR PRN IV (CKD) Docusate Sodium (COLACE) 100 MG Q12H PRN PRN PO Glucagon (GLUCAGON) 1 MG ASDIR PRN IM Hydralazine HCl (APRESOLINE) 10 MG Q6H PRN PRN IV Ondansetron HCl (ZOFRAN) 4 MG Q6H PRN PRN IV Physical ExamGeneral appearance: alert, awake, orientedNeck: no bruit/NL carotids, no JVDCardiovascular: CV assessment: regular rate and rhythm, no ectopy, no gallopRespiratory: clear to auscultation, no distressAbdomen: soft, non-tenderLower extremity: LE assessment: edema, normal temperatureNeuro/DIRECTOR OPERATING ROOM: alert, oriented X 3 Considered stroke alert: noWound/incision: Location:right bkaPsychiatry: normal affect, normal judgment/insight, normal mood ResultsFindings/Data:Laboratory Tests 09/04 09/04 09/03 09/03 09/03 0816 [...] - 40 MCG/ML) 27.4 L Diagnosis, Assessment PlanConsultants: cardiology, endocrinology, hospitalist, infectious disease, podiatry Free Text DxA P NotesFree Text DxA P Notes:Impression: 1. Debility2. Infected right foot status post BKA3. Bacteremia4. Diabetes5. Hypertension 6. Anemia Recommendation: Patient initially presented with DKA and sepsis. Diagnosed with right foot infection, underwent I D, now status post BKA. Patient had persistent bacteremia with MRSA, underwent JIMENA with negative findings of endocarditis. Patient now transferred to rehab for physical therapy. Known cardiac history ofhypertension and hyperlipidemia. Vital signs stable. Echocardiogram with normal LVEF, grade 1 diastolic dysfunction, mildly dilated LA, and no significant valvular abnormalities. Continue to monitor blood pressure trend. Continue wound care and IV antibiotic therapy. Continue PT/OT. Supportive care. 09/04: Patient complaining of shortness of breath, abdominal distention and lowerextremity edema. Renal function and electrolytes stable. Will give one-time dose of IV Lasix 40 mg. Blood pressure stable. Pending abdominal x-ray. Monitor intake and output. Check BMP in the morning. Supportive care. Plan ofcare discussed with patient, RN and Dr. Parham. Napoleon Parham 09/06/22 1632:Diagnosis, Assessment PlanAdditional comments:Patient was seen and examined at bedside, agree with above assessment and plan as documented by nurse practitioner. Monitor I's and O's. Will follow. at 1831 at 1637 RPT #:[id number] OF REPORTPRProgress [id number]:37:00G.[id number] able for patient lblyWXVBHRJFIMAEVD4110-65-79U61:31:43 [facility] 2022-09-04 10:31:00 [id number]+MWRq dL6UYxjTJROWM0irlqFE88dTQCBDm 8ob9VXI0oZw9kTpTXftnpHmFK2/7502-07-83F17:31:00 [facility] ([facility])Rehab Progress NoteREPORT#:[id number] REPORT STATUS: SignedDATE:09/04/22 TIME: 1031 PATIENT: KARMA ROWLAND UNIT #: [id number]#: [id number] [address] [birth year] AGE: 56 SEX: M ATTEND: Mj Vences [facility] AUTHOR: Mj Vences MD * ALL edits or amendments must be made on the electronic/computer document * SubjectiveChief complaint:Rehabilitation follow-upPatient complaining of decreased appetite and abdominal fullness, no painPlaced on stool softenersPatient very motivatedEatingDenies nausea, vomiting, fever, chills, chest pain, shortness of breathHistory of present illness:56 yo HAM with long h/o DM, and HTN who was admitted for fever, flulike symptomsand altered mental status on 08/18. He was doing well until about 3 days prior toadmission when he noted blister to have formed on the dorsum of his foot. His foot started progressively getting more swollen and the blisters started enlarging and extending to his lateral foot and ankle. He started feeling weak and nauseated. He was noted to have altered mentation and was brought to our ER.He was noted to be in DKA with Blood sugars greater than 600. He was seen by podiatry and surgery for BLE wounds and infection. He was treated in ICU for sepsis and DKA. He underwent incisional and excisional debridement of right footand right ankle by podiatry. Patient also found to have prostate abscess underwent transrectal ultrasound aspiration of abscess and transurethral resection of prostate and unroofing of abscess by urology Dr. Du. Endocrinology treated the DKA and blood sugars much improved. Patient's right foot was not salvageable and patient underwent right BKA by Dr. LEROY on 08/28. Patient blood cultures showed MRSA. Patient continued on antibiotics as per ID. MRI of the pelvis and foot completed. Patient required multiple PRBCs for anemia. Patient was found to have a possible small hematoma of the left calf onultrasound. He complains of pain and swelling of the left ankle. Patient hemodynamically stable and plans are to be transferred to stepdown unit. He is on heparin subcu for VTE. After surgery he is now being mobilized by PT and OT.He is wearing a maxine-tech orthotic for right knee/BKA protection. Prior to admission the patient was independent living in a single-story house with his spouse with a few steps up to front and back door. 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 is at bedside. Patient denies nausea, vomiting, fever, chills, chest pain, shortness of breath with dizziness. He is requiring IV Dilaudid for pain control. Mental status back to baseline. Pt is progressing slowly with therapy d/t weakness and pain, self care deficit, decreased endurance and balance, and decreased functional mobility. Pt requiring acute inpt rehab for multidisciplinary team of nursing, therapy, and physicians. Pt iswilling and able to partici- kathleen in 3 hr/day inpt rehab to d/c home safely. Pt's prior level of function was independent. Objective GeneralVS:Vital Signs: Date Time Temp Pulse Resp B/P B/P Pulse O2 O2 Flow FiO2 Mean Ox Delivery Rate 09/04 0718 97.5 80 18 133/69 90.3 99 Room air 09/03 2328 97.5 82 16 128/65 85.6 96 09/03 1920 98.1 92 16 154/79 103.6 97 09/03 1621 97.5 89 17 159/77 104.5 100 PATIENT WEIGHT: Weight (lb): 165Weight (oz): 5.55Weight (kg): 75.000 Medications:Active Meds + DC'd Last 24 HrsZinc Oxide (ZINC OXIDE 30 GM OINTMENT) 1 APPLIC DAILY TOPICAL Insulin Glargine (Lantus/Semglee) 10 UNIT BEDTIME SUBQ Sterile Water (WATER FOR IRRIGATION) DRESSING CHANGE ASDIR PRN IRR Insulin Human Lispro (HUMALOG) 0 AC HS SUBQ Dextrose/Water (DEXTROSE 10% IN WATER) 125 ML ASDIR PRN IV (CKD) Dextrose/Water (DEXTROSE 10% IN WATER) 250 ML ASDIR PRN IV (CKD) Glucagon (GLUCAGON) 1 MG ASDIR PRN IM Vancomycin HCl (VANCOMYCIN HCL) 1,000 MG Q24H IV Sodium Chloride (SODIUM CHLORIDE 0.9%) 250 MLHydrocodone Bitart/Acetaminophen (NORCO 10/325) 1 TAB Q4H PRN PRN PO Hydromorphone HCl (DILAUDID) 1 MG Q6H PRN PRN IV Lidocaine (LIDODERM) 1 PATCH DAILY TOPICAL Insulin Human Lispro (HUMALOG) 5 UNIT AC SUBQ Miscellaneous Information (VANCOMYCIN PHARMACY TO DOSE) 1 EACH ASDIR IV (CKD) Heparin Sodium (HEPARIN 5000 UNITS/ML) 5,000 UNIT Q8HR SUBQ Cefepime HCl (MAXIPIME) 1 GM Q6H IV Sodium Chloride (SODIUM CHLORIDE) 10 MLInsulin Glargine (Lantus/Semglee) 15 UNIT BEDTIME SUBQ (DC) Insulin Human Lispro (HUMALOG) 0 AC HS SUBQ (DC) Vancomycin HCl (VANCOMYCIN HCL) 1,000 MG DAILY 1400 IV (DC) Sodium Chloride (SODIUM CHLORIDE 0.9%) 250 MLHydromorphone HCl (DILAUDID) 1 MG Q3H PRN PRN IV (DC) Hydromorphone HCl (DILAUDID) 0.5 MG Q3H PRN PRN IV (DC) Acetaminophen (TYLENOL) 650 MG Q6H PRN PRN PO Bisacodyl (DULCOLAX) 10 MG DAILY PRN PRN RECTAL Dextrose/Water (DEXTROSE 10% IN WATER) 125 ML ASDIR PRN IV (CKD) Dextrose/Water (DEXTROSE 10% IN WATER) 250 ML ASDIR PRN IV (CKD) Docusate Sodium (COLACE) 100 MG Q12H PRN PRN PO Glucagon (GLUCAGON) 1 MG ASDIR PRN IM Hydralazine HCl (APRESOLINE) 10 MG Q6H PRN PRN IV Ondansetron HCl (ZOFRAN) 4 MG Q6H PRN PRN IV Physical ExamGeneral appearance: alert, awake, no acute distressPsych: alert, normal affect, oriented x 3HEENT: anicteric, sclera clearNeck: supple, no JVDCardiovascular: S1/S2, no murmurRespiratory: aerating well, clear bilaterallyAbdomen: bowel sounds present, non-distended, soft, non-tenderSkin: no rash, R BKA wrapped with kerlix and JOAN. 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: alert, oriented X 3, CNII-XII intact ResultsFindings/Data:Laboratory Tests 09/02 09/02 09/02 09/02 09/03 1513 1732 1908 1929 0415Chemistry Sodium (134 - 147 mEq/L) 135 Potassium [...] 1.30 Prealbumin (16.0 - 40.0 mg/dL) < 5.0Hematology WBC (4.5 - 11.0 x10 3/uL) 8.7 [...] % (Auto) (14.0 - 32.0 %) 15.1 [place] % (Auto) (4.8 - 9.0 %) 6.8 Eos % (Auto) (0.3 - 3.7 %) 2.3 Baso % (Auto) (0.0 - 2.0 %) 0.3 Neut # (Auto) (2.0 - 7.6 x10 3/uL) 6.51 Lymph # (Auto) (1.0 - 3.8 x10 3/uL) 1.31 [place] # (Auto) (0.1 - 0.8 x10 3/uL) 0.59 Eos # (Auto) (0.0 - 0.2 x10 3/uL) 0.20 Baso # (Auto) (0.0 - 0.2 x10 3/uL) 0.03 Abs Immat Gran (auto) (0.00 - 0.03 0.04x10 3/uL) Add Manual Diff NO Immature Gran % (0.0 - 2.0 %) 0.5 Nucleated RBC % (0 - 0 %) 0.0 Nucleated RBCs # (Man) (0.0 - 0.1 x10 3/uL) 0.00 09/03 09/03 09/03 09/03 09/03 0415 0518 [...] 23.7 Toxicology Vancomycin Trough Cancelled Diagnosis, Assessment PlanProblem List/A P: 1. Gangrene of right foot 2. Below-knee amputation of right lower extremity 3. MRSA bacteremia 4. Cellulitis of foot, right 5. DKA (diabetic ketoacidosis) 6. Hyperglycemia 7. ERIKA (acute kidney injury) 8. Postoperative pain 9. Acute anemia 10. Prostate abscess 11. Impaired functional mobility, balance, gait, and endurance Free Text A P:Severe Gas gangrene right foot and right ankle associated with osteomyelitis andnecrotizing fasciitisS/p surgical debridement and washout08/28: S/p right BKA-Dr. Greenberggnificant impairment in self-care, ADLs and functional mobilityImpaired mobility and gaitPostoperative painDiabetic polyneuropathyDKA, DM 2, poorly controlled, A1c greater than 14PADMRSA bacteremia/sepsis-treated on acuteAKISevere hyponatremia-resolvedHTNAcute on chronic anemia requiring multiple transfusionsLeft calf hematomaEdema and clinical arthritis left ankleEarly decubitus to left heel/DTI dorsal left midfootProstatic abscess 08/26: S/p transrectal ultrasound aspiration of abscess and transurethral resection of prostate and unroofing of abscess09/02: JIMENA negative for vegetationMRSA OF NARES Plan:-PLOF: Independent with transfers and gait-Amputee rehab program-Continue PT and OT-15/12 rehabilitation nursing care.-Case management for safe discharge planning.-Decubitus prevention-Early decubitus to left heel/DTI dorsal left midfoot-zinc oxide to the foot, foam, offloading, podiatry managing-DVT prophylaxis-subcutaneous heparin-Strict fall and safety precautions-Work on bed mobility, transfer training, ADLs, pre-gait and gait exercises-Increase endurance and strength-Monitor pain with therapies-OOB to chair-Monitor p.o. intake and nutrition, albumin 1.3, prealbumin less than 5, dietaryconsultation, protein supplements to promote healing-Continue antibiotics per ID-Tight glycemia control- endocrine on board, insulin adjustments-Endocrinology, ID, podiatry, cardiology, IM consulted-Consult pain management-Labs reviewed-WBC normal, hemoglobin 8, 6.8, 7.7 platelets normal, chemistries good, creatinine 1.1, magnesium normal-Anemia, repeat H H improved, patient did require multiple units of PRBCs on acute, check FOBT-Right WJP-htfuraj-hciiesnc resolved, dressings changed ebqoe-tpcpdha-hxqppiig sDA-WDUR-HFNW OF NARES on Bactroban lwpuqeib-Swhlxlbccxnn-iqwyffdpw fullness-check KUB-add Senokot and MiraLAX, DSP-Advance therapies as tolerated-Patient benefiting from therapies and improving mobility and strength, requiresmax assist for transfers due to weakness and amputation Progress: PATIENT WORKED ON BED MOB, ABLE TO SIT UP EOB WITH MIN A, TRANSFERS TO WC WITH MAX A KEEPING RLE NWB. FLOT TECH ONE. PATIENT WORKED ON WC MOB WITH MOD A FOR TURNS ANDPROPULSION ,IN THE GYM PATIENT WORKED ON LEEX IN SITTING TO INCREASE STRENGTH, WC PUSHUPS TO IMPROVE UE STRENGTH, PATIENT WORKED ON SIT TO STANDS IN PARALLEL BARS WITH [place] A AND STATIC STANDING BALANCE WITH MOD A. PATIENT WORKED ON TRANSFERS TO TOILET WITH MAX A TO LEFT AND MOD A TO R. EDUCATED ON USE OF SB Total time 35 minutes greater than 50% of the time spent examining patient, discussing with patient about constipation, anemia, amputation rehab, rehab planof care, goals, therapies, progress, labs, medications. All questions answeredOrders: Procedure Date/time Status HGB HCT 09/05 0400 Active XR ABDOMEN AP 1V 09/04 1156 Active FECAL OCCULT BLOOD 09/04 1037 Active OT FUNCTIONAL TRN 15 MIN 09/04 UNK Complete OT EXERCISE 15MIN 09/04 UNK Complete Consultants: cardiology, endocrinology, hospitalist, infectious disease, podiatryRehab attestation:Face to face exam completed. Treatment plan discussed with patient. Meets continued stay criteria. Agree with interdisciplinary treatment plan. at 1524 RPT #:[id number] OF REPORTPRProgress [id number]:31:00G.[id number] able for patient gizqYNPQPEPDKXRSWE0978-55-49A17:26:26 [facility] 2022-09-04 09:02:00 [id number] [id number] YTBF50gaRItzZej0ifcET7TZIC76617-42-78Q25:02:00 [facility])Hospitalist Progress NoteREPORT#:[id number] REPORT STATUS: SignedDATE:09/04/22 TIME: 09 PATIENT: KARMA ROWLAND UNIT #: [id number]#: [id number] [address] AGE: 56 SEX: M ATTEND: Mj Vences MDADM AUTHOR: Wilbert Ramires MD * ALL edits or amendments must be made on the electronic/computer document * SubjectiveChief complaint:admitted to rehab. participating with therapy Review of SystemsAll systems rev neg: except as noted Objective GeneralVS/I O:Vital Signs: Date Time Temp Pulse Resp B/P B/P Pulse O2 O2 Flow FiO2 Mean Ox Delivery Rate 09/04 0718 [...] scale Measurement Method PATIENT WEIGHT: Weight (lb): 165Weight (oz): 5.55Weight (kg): 75.000 Medications:Active Meds + DC'd Last 24 HrsZinc Oxide (ZINC OXIDE 30 GM OINTMENT) 1 APPLIC DAILY TOPICAL Insulin Glargine (Lantus/Semglee) 10 UNIT BEDTIME SUBQ Sterile Water (WATER FOR IRRIGATION) DRESSING CHANGE ASDIR PRN IRR Insulin Human Lispro (HUMALOG) 0 AC HS SUBQ Dextrose/Water (DEXTROSE 10% IN WATER) 125 ML ASDIR PRN IV (CKD) Dextrose/Water (DEXTROSE 10% IN WATER) 250 ML ASDIR PRN IV (CKD) Glucagon (GLUCAGON) 1 MG ASDIR PRN IM Vancomycin HCl (VANCOMYCIN HCL) 1,000 MG Q24H IV Sodium Chloride (SODIUM CHLORIDE 0.9%) 250 MLHydrocodone Bitart/Acetaminophen (NORCO 10/325) 1 TAB Q4H PRN PRN PO Hydromorphone HCl (DILAUDID) 1 MG Q6H PRN PRN IV Lidocaine (LIDODERM) 1 PATCH DAILY TOPICAL Insulin Human Lispro (HUMALOG) 5 UNIT AC SUBQ Miscellaneous Information (VANCOMYCIN PHARMACY TO DOSE) 1 EACH ASDIR IV (CKD) Heparin Sodium (HEPARIN 5000 UNITS/ML) 5,000 UNIT Q8HR SUBQ Cefepime HCl (MAXIPIME) 1 GM Q6H IV Sodium Chloride (SODIUM CHLORIDE) 10 MLInsulin Glargine (Lantus/Semglee) 15 UNIT BEDTIME SUBQ (DC) Insulin Human Lispro (HUMALOG) 0 AC HS SUBQ (DC) Vancomycin HCl (VANCOMYCIN HCL) 1,000 MG DAILY 1400 IV (DC) Sodium Chloride (SODIUM CHLORIDE 0.9%) 250 MLHydromorphone HCl (DILAUDID) 1 MG Q3H PRN PRN IV (DC) Hydromorphone HCl (DILAUDID) 0.5 MG Q3H PRN PRN IV (DC) Acetaminophen (TYLENOL) 650 MG Q6H PRN PRN PO Bisacodyl (DULCOLAX) 10 MG DAILY PRN PRN RECTAL Dextrose/Water (DEXTROSE 10% IN WATER) 125 ML ASDIR PRN IV (CKD) Dextrose/Water (DEXTROSE 10% IN WATER) 250 ML ASDIR PRN IV (CKD) Docusate Sodium (COLACE) 100 MG Q12H PRN PRN PO Glucagon (GLUCAGON) 1 MG ASDIR PRN IM Hydralazine HCl (APRESOLINE) 10 MG Q6H PRN PRN IV Ondansetron HCl (ZOFRAN) 4 MG Q6H PRN PRN IV Physical ExamGeneral appearance: alert, awake, orientedHead/Eyes: atraumatic, clear corneaNeck: full range of motion, non-tenderCardiovascular: normal capillary refill, normal heart sounds, regular rate rhythmRespiratory: aerating well, clear to auscultationAbdomen: non-tender, normal bowel soundsGenitourinary: no flank painExtremities: moves all, normal capillary refillMusculoskeletal: normal inspection, painless range of motionNeuro/DIRECTOR OPERATING ROOM: alert, oriented X 3, 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 Considered stroke alert: noSkin: dry, intactPsychiatry: normal affect, normal judgment/insight ResultsFindings/Data:Laboratory Tests 09/04 09/04 09/03 09/03 09/03 0816 [...] - 40 MCG/ML) 27.4 L Diagnosis, Assessment PlanConsultants: cardiology, endocrinology, hospitalist, infectious disease, podiatry Free Text DxA P NotesFree text DxA P notes:Gangrene of right foot s/p Below- knee amputation Prostate abscessMRSA bacteremiaHx of Diabetes, Diabetic neuropathy PLANS: Continue with ABx as dierected- currently on Daptomycin and CefepimeContinue with PT/OT per primary Fall precautionsNutritional supportpain controlTight glycemia control- endocrine on board, insulin adjustmentsWound care as directedHepain PPXContinue with supportive / care at 1105 RPT #:[id number] OF REPORTPRProgress [id number]:02:00G.[id number] able for patient raulRBRTYJDTLITFOY1819-79-29O99:06:01 [facility] 08:56:00 [id number] 1VBbtba/gYPoSnF5iKUau33100/JF ynYp+AzJYZmTRG/RBEirW/jK+[id number]:56:78771 3-0011 [place] [id number] PATIENT NAME: KARMA ROWLAND ADMIT DATE: 08/18/22ACCOUNT NO: [id number] ROOM NO: [facility] [place] AGE: 56 REPORT TYPE: eTRANSESOPHAGEAL ECHO REPORT SEX: M ADMITTING PHYSICIAN:Wilbert Ramires MD ATTENDING PHYSICIAN:Wilbert Ramires MD *[place] [id number]: Jgt: [phone] Transesophageal Echocardiogram Patient: Consuelo Rowlandudjyotsna Date: 09/02/2022 BP: 138 / 65 [id number] 1965 Age: 56 Height: 66 in / 167.6 cmAccession#: [id number] Gender: M Weight: 153.7 lb / 69.9 kgBMI/BSA: 24.9 kg/m 2 / 1.79 m 2 *Ordering Physician: * Rohit Benitez *Interpreting Physician: * Napoleon Parham MD*Fruit Or Nut Picker: * Sarah Lam Indications: Endocarditis Acute/subacute bacterial. Study data: Consent: The risks, benefits, and alternatives to theprocedure were explained to the patient and informed consent wasobtained. Procedure: Initial setup: [facility].Intravenous access was obtained. SurfaceECG leads and pulse oximetric signals were monitored. Sedation. Moderatesedation was administered by cardiology staff. Transesophagealechocardiography was performed. Topical anesthesia was obtained usingbenzocaine spray. A transesophageal probe (SN: [id number]) was inserted bythe attending charity fundraiser without difficulty. Images were obtainedusing a Zwipe cardiac ultrasound machine. Image quality was adequate. Thetransesophageal probe was removed. Limited 2D, limited spectralDoppler, and color Doppler. Location: [facility]. Patient status:Inpatient. Patient room number: [place] 11. Study status: Routine. Studycompletion: The patient tolerated the procedure well. There were noPATIENT NAME: KARMA ROWLAND complications. Findings Left ventricle: The cavity size is normal. Wall thickness is at theupper limits of normal. Systolic function is normal. The estimatedejection fraction is 55-59%.Right ventricle: The cavity size is normal. Systolic function isnormal.Left atrium: The atrium is mildly dilated. The appendage is of normalsize. Emptying velocity is normal. There is no evidence of a thrombusin the atrial cavity or appendage. No spontaneous echo contrast isobserved.Right atrium: The atrium is normal in size.Aorta: A single aortic arch is present. Brachiocephalic branching isnormal. The right innominate artery is the first aortic branch. Theaorta is normal size, calcified, and non-diseased.Aortic valve: The valve is structurally normal. The valve istrileaflet. Cusp separation is normal. There is no evidence of avegetation. There is no evidence of stenosis. There is noregurgitation.Mitral valve: The valve is structurally normal. There is noevidence of a vegetation. There is no evidence of stenosis. There istrivial regurgitation.Tricuspid valve: The valve is structurally normal. There is noevidence of a vegetation. There is trivial regurgitation.Pulmonic valve: Not well visualized. The valve is structurallynormal. There is no evidence of a vegetation. There is noregurgitation.Pericardium: A trivial pericardial effusion is identified posterior tothe heart.Pulmonary arteries:Main pulmonary artery: The artery is of normal size.Systemic veins:Inferior vena cava: The vessel is at the upper limits of normal in size. Conclusions Summary: 1. Left ventricle: The cavity size is normal. Wall thickness is at the upper limits of normal. Systolic function is normal. The estimated ejection fraction is 55-59%.2. Left atrium: The atrium is mildly dilated. There is no evidence of a thrombus in the atrial cavity or appendage. No spontaneous echo contrast is observed.3. Aortic valve: There is no evidence of a vegetation.4. Mitral valve: There is no evidence of a vegetation. There is trivial regurgitation.5. Tricuspid valve: There is no evidence of a vegetation. There is trivial regurgitation.6. Pulmonic valve: There is no evidence of a vegetation.PATIENT NAME: KARMA ROWLAND 7. Pericardium, extracardiac: A trivial pericardial effusion is identified posterior to the heart. Prepared and electronically signed by Napoleon Parham MD09/04/2022 08:56 at 0856 PATIENT NAME: KARMA ROWLAND bdrlsae2063-73-70U18:56:00G.[id number] ilable for patient usmzIMFCKUODZRZHZS4646-54-72I62:57:14 [facility] 2022-09-04 07:49:00 [id number] 8kcsEFca4gsU/+BaS/g0mjgscMzD6 E1k7/FN35eh/fYyzI/kH6bi3nfs4085-99-28W09:49:00 [facility] ([facility])Podiatry Progress NoteREPORT#:[id number] REPORT STATUS: SignedDATE:09/04/22 TIME: 07 PATIENT: KARMA ROWLAND UNIT #: [id number]#: [id number] [address] AGE: 56 SEX: M ATTEND: Mj Vences MDADM AUTHOR: Liam Pedersen DPM * ALL edits or amendments must be made on the electronic/computer document * SubjectiveChief complaint:left heel ulcer. left ankle painPatient reports: no chest pain, no cough, no dizziness, no fever, no heartburn, no itchingComments:dressing placed last night.excellent job.did well with PT yesterday Objective GeneralVS:Last Documented: Result Date Time Pulse Ox 99 09/04 717 B/P 133/69 09/04 717 B/P Mean 90.3 09/04 717 O2 Delivery Room air 09/04 717 Temp 36.4 09/04 717 Pulse 80 09/04 717 Resp 18 09/04 717 PATIENT WEIGHT: Weight (lb): 165Weight (oz): 5.55Weight (kg): 75.000 Medications:Active Meds + DC'd Last 24 HrsZinc Oxide (ZINC OXIDE 30 GM OINTMENT) 1 APPLIC DAILY TOPICAL Insulin Glargine (Lantus/Semglee) 10 UNIT BEDTIME SUBQ Sterile Water (WATER FOR IRRIGATION) DRESSING CHANGE ASDIR PRN IRR Insulin Human Lispro (HUMALOG) 0 AC HS SUBQ Dextrose/Water (DEXTROSE 10% IN WATER) 125 ML ASDIR PRN IV (CKD) Dextrose/Water (DEXTROSE 10% IN WATER) 250 ML ASDIR PRN IV (CKD) Glucagon (GLUCAGON) 1 MG ASDIR PRN IM Vancomycin HCl (VANCOMYCIN HCL) 1,000 MG Q24H IV Sodium Chloride (SODIUM CHLORIDE 0.9%) 250 MLHydrocodone Bitart/Acetaminophen (NORCO 10/325) 1 TAB Q4H PRN PRN PO Hydromorphone HCl (DILAUDID) 1 MG Q6H PRN PRN IV Lidocaine (LIDODERM) 1 PATCH DAILY TOPICAL Insulin Human Lispro (HUMALOG) 5 UNIT AC SUBQ Miscellaneous Information (VANCOMYCIN PHARMACY TO DOSE) 1 EACH ASDIR IV (CKD) Heparin Sodium (HEPARIN 5000 UNITS/ML) 5,000 UNIT Q8HR SUBQ Cefepime HCl (MAXIPIME) 1 GM Q6H IV Sodium Chloride (SODIUM CHLORIDE) 10 MLInsulin Glargine (Lantus/Semglee) 15 UNIT BEDTIME SUBQ (DC) Insulin Human Lispro (HUMALOG) 0 AC HS SUBQ (DC) Vancomycin HCl (VANCOMYCIN HCL) 1,000 MG DAILY 1400 IV (DC) Sodium Chloride (SODIUM CHLORIDE 0.9%) 250 MLHydromorphone HCl (DILAUDID) 1 MG Q3H PRN PRN IV (DC) Hydromorphone HCl (DILAUDID) 0.5 MG Q3H PRN PRN IV (DC) Acetaminophen (TYLENOL) 650 MG Q6H PRN PRN PO Bisacodyl (DULCOLAX) 10 MG DAILY PRN PRN RECTAL Dextrose/Water (DEXTROSE 10% IN WATER) 125 ML ASDIR PRN IV (CKD) Dextrose/Water (DEXTROSE 10% IN WATER) 250 ML ASDIR PRN IV (CKD) Docusate Sodium (COLACE) 100 MG Q12H PRN PRN PO Glucagon (GLUCAGON) 1 MG ASDIR PRN IM Hydralazine HCl (APRESOLINE) 10 MG Q6H PRN PRN IV Ondansetron HCl (ZOFRAN) 4 MG Q6H PRN PRN IV I O:24 hour I O ending at 0700: 13 0700 09/03 1900 Intake Total 598 Output Total 400 Balance 198 Intake, Oral 598 Number 0 Incontinent Voids Number Voids 0 Output, Urine 400 Patient 75 kg Weight Weight Bed scale Measurement Method Dietitian nutrition assessmentThe data set between the solid lines has been imported from the dietitian's assessment. BMI Calculated: 26.7Nutrition related diagnosis: Nutrition diagnosis details: Nutrition problem: Altered nutrition labsNutrition etiology: DMNutrition signs and symptoms: HYPER/HYPOGLYCEMIA, A1C >14Nutrition prescription: CONTINUE DM DIETDietitian name: Klaus Kaiser, DIETAssessment completed: 09/03/22 Physical ExamGeneral appearance: alert, awake, orientedWound/incision: Location:left foot Site condition: dp/pt 2/4 left. light touch decreased left foot. ulcer starting at posterior left heel. eccymosis noted. early likely stage 1. left ankle has edema. pain with aggressive ROM left ankle.LE vascular pulse assess:2+ L posterior tibialis, 2+ L dorsalis pedis Considered stroke alert: noUlcer: Location: DTI dorsal left midfoot ResultsFindings/Data:Laboratory Tests: 09/04 09/04 09/03 09/03 09/03 0721 [...] H 50 L 44 L Diagnosis, Assessment PlanFree Text A P:DM with neuropathyearly decub ulcer left heelOA/edema left ankleDTI dorsal left midfoot zinc oxide to foot and heelfoam to heelon IV abxoffloading bootace wraps to ankle Consultants: cardiology, endocrinology, hospitalist, infectious disease, podiatry at 0750 RPT #:[id number] OF REPORTPRProgress [id number]:49:00G.[id number] able for patient kuxuLFWWAYYBXMZXZF5997-80-92C31:51:12 [facility] 2022-09-03 20:06:00 [id number] NKfJuBLRcCJX2z0OBYUeqz6fpzi6861-93-11S28:06:00 [facility] ([facility])Podiatry Consult NoteREPORT#:[id number] REPORT STATUS: SignedDATE:09/03/22 TIME: 2005 PATIENT: KARMA ROWLAND UNIT #: [id number]#: [id number] [address] AGE: 56 SEX: M ATTEND: Mj Vences MDADM AUTHOR: Liam Pedersen DPM * ALL edits or amendments must be made on the electronic/computer document * History of Present IllnessChief complaint:left heel ulcer.left ankle painHPI:thank you dr. Vences and team.56 yo HAM with long h/o DM, and HTN who was admitted for fever, flulike symptomsand altered mental status on 08/18. He was doing well until about 3 days prior toadmission when he noted blister to have formed on the dorsum of his foot. His foot started progressively getting more swollen and the blisters started enlarging and extending to his lateral foot and ankle. He started feeling weak and nauseated. He was noted to have altered mentation and was brought to our ER.He was noted to be in DKA with Blood sugars greater than 600. I saw him in ICU and took him to OR for dibridemet and washout. He was treated in ICU for sepsis and DKA. He underwent incisional and excisional debridement of right footand right ankle to right foot. Patient also found to have prostate abscess underwent transrectal ultrasound aspiration of abscess and transurethral resection of prostate and unroofing of abscess by urology Dr. Du. Endocrinology treated the DKA and blood sugars much improved. Patient's right foot was not salvageable and patient underwent right BKA by Dr. LEROY on 08/28. Patient blood cultures showed MRSA. Patient continued on antibiotics as per ID. MRI of the pelvis and foot completed. Patient required multiple PRBCs for anemia. Patient was found to have a possible small hematoma of the left calf onultrasound. H He is requiring IV Dilaudid for pain control. Mental status back to baseline. Pt is progressing slowly with therapy d/t weakness and pain, self care deficit, decreased endurance and balance, and decreased functional mobility. Pt requiringacute inpt rehab for multidisciplinary team of nursing, therapy, and physicians. at atime of admission no ulcer left heel.some pain left ankle.and swelling.now new ulcer left heel. History - Adult longitudinalAdditional medical history:DM 2 since age 33 DM neuropathy HTN hyperlipidemiaAdditional surgical history:as aboveAdditional family history:reviewed and non contributoryAlcohol use: Denies EtOH useDrug use: Denies recreational drugsSmoking status for patients 13 years old or older: Never SmokerOther social history: Local resident, Good social supportAllergies:Coded Allergies:No Known Allergies (03/23/11) Review of SystemsConstitutional:fatigue, generalized weakness. Denies: fever. Skin:abrasion, bruising, contusion. Cardiovascular:edema. Musculoskeletal:joint pain, joint swelling. Neuro:numbness. Denies: seizure. Psych:Denies: agitation, anxiety. All systems rev neg: except as marked Objective GeneralVS:Last Documented: Result Date Time Pulse Ox 97 09/04 1919 B/P 154/79 09/04 1919 B/P Mean 103.6 09/04 1919 Temp 36.7 09/04 1919 Pulse 92 09/04 1919 Resp 16 09/04 1919 O2 Delivery Room air 09/03 0018 PATIENT WEIGHT: Weight (lb): 165Weight (oz): 5.55Weight (kg): 75.000 Medications:Active Meds + DC'd Last 24 HrsInsulin Glargine (Lantus/Semglee) 10 UNIT BEDTIME SUBQ Insulin Human Lispro (HUMALOG) 0 AC HS SUBQ Dextrose/Water (DEXTROSE 10% IN WATER) 125 ML ASDIR PRN IV (CKD) Dextrose/Water (DEXTROSE 10% IN WATER) 250 ML ASDIR PRN IV (CKD) Glucagon (GLUCAGON) 1 MG ASDIR PRN IM Vancomycin HCl (VANCOMYCIN HCL) 1,000 MG Q24H IV Sodium Chloride (SODIUM CHLORIDE 0.9%) 250 MLHydrocodone Bitart/Acetaminophen (NORCO 10/325) 1 TAB Q4H PRN PRN PO Hydromorphone HCl (DILAUDID) 1 MG Q6H PRN PRN IV Lidocaine (LIDODERM) 1 PATCH DAILY TOPICAL Insulin Human Lispro (HUMALOG) 5 UNIT AC SUBQ Miscellaneous Information (VANCOMYCIN PHARMACY TO DOSE) 1 EACH ASDIR IV (CKD) Heparin Sodium (HEPARIN 5000 UNITS/ML) 5,000 UNIT Q8HR SUBQ (CKD) Cefepime HCl (MAXIPIME) 1 GM Q6H IV Sodium Chloride (SODIUM CHLORIDE) 10 MLInsulin Glargine (Lantus/Semglee) 15 UNIT BEDTIME SUBQ (DC) Insulin Human Lispro (HUMALOG) 0 AC HS SUBQ (DC) Vancomycin HCl (VANCOMYCIN HCL) 1,000 MG DAILY 1400 IV (DC) Sodium Chloride (SODIUM CHLORIDE 0.9%) 250 MLHydromorphone HCl (DILAUDID) 1 MG Q3H PRN PRN IV (DC) Hydromorphone HCl (DILAUDID) 0.5 MG Q3H PRN PRN IV (DC) Acetaminophen (TYLENOL) 650 MG Q6H PRN PRN PO Bisacodyl (DULCOLAX) 10 MG DAILY PRN PRN RECTAL Dextrose/Water (DEXTROSE 10% IN WATER) 125 ML ASDIR PRN IV (CKD) Dextrose/Water (DEXTROSE 10% IN WATER) 250 ML ASDIR PRN IV (CKD) Docusate Sodium (COLACE) 100 MG Q12H PRN PRN PO Glucagon (GLUCAGON) 1 MG ASDIR PRN IM Hydralazine HCl (APRESOLINE) 10 MG Q6H PRN PRN IV Ondansetron HCl (ZOFRAN) 4 MG Q6H PRN PRN IV I O:24 hour I O ending at 0700: 04/12 0700 04/11 1900 Intake Total 240 Output Total 850 Balance -610 Intake, Oral 240 Number 0 Incontinent Voids Number Voids 1 Output, Urine 850 Dietitian nutrition assessmentThe data set between the solid lines has been imported from the dietitian's assessment. BMI Calculated: 26.7Nutrition related diagnosis: Nutrition diagnosis details: Nutrition problem: Altered nutrition labsNutrition etiology: DMNutrition signs and symptoms: HYPER/HYPOGLYCEMIA, A1C >14Nutrition prescription: CONTINUE DM DIETDietitian name: Klaus Kaiser, DIETAssessment completed: 09/03/22 Physical ExamGeneral appearance: alert, awake, oriented, pleasant, no respiratory distressWound/incision: Location:left foot Site condition: dp/pt 2/4 left. light touch decreased left foot. ulcer starting at posterior left heel. eccymosis noted. early likely stage 1. left ankle has edema. pain with aggressive ROM left ankle.LE vascular pulse assess:2+ L posterior tibialis, 2+ L dorsalis pedisFeet - Bottom View (L)[Embedded Image Not Available] 1) Ulcer: Location: DTI dorsal left midfoot ResultsFindings/Data:Laboratory Tests: 09/03 09/03 09/03 09/03 09/03 1944 [...] % (Auto) (14.0 - 32.0 %) 15.1 Lenoir % (Auto) (4.8 - 9.0 %) 6.8 Eos % (Auto) (0.3 - 3.7 %) 2.3 Baso % (Auto) (0.0 - 2.0 %) 0.3 Neut # (Auto) (2.0 - 7.6 x10 3/uL) 6.51 Lymph # (Auto) (1.0 - 3.8 x10 3/uL) 1.31 Lenoir # (Auto) (0.1 - 0.8 x10 3/uL) 0.59 Eos # (Auto) (0.0 - 0.2 x10 3/uL) 0.20 Baso # (Auto) (0.0 - 0.2 x10 3/uL) 0.03 Abs Immat Gran (auto) (0.00 - 0.03 x10 3/uL) 0.04 H Add Manual Diff NO Immature Gran % (0.0 - 2.0 %) 0.5 Nucleated RBC % (0 - 0 %) 0.0 Nucleated RBCs # (Man) (0.0 - 0.1 x10 3/uL) 0.00 Diagnosis, Assessment PlanFree Text A P:DM with neuropathyearly decub ulcer left heelOA/edema left ankleDTI dorsal left midfoot zinc oxidefoam to heelon IV abxoffloading bootace wraps to anklediscussed with primary team/PMR Consultants: cardiology, endocrinology, hospitalist, infectious disease, podiatry at 2015 RPT #:[id number] OF REPORTYXVxenwybytoyd9849-80-48H83:06:00G.PDOC2 [id number] for patient atddCFVKNANFDAAHXX3418-21-47H35:16:29 [facility] 2022-09-03 15:03:00 [id number] 8OX2jxJh8EcutNsOfbU0i+sHSODk/ nQrObWKRhC4+2OouQRj7S/hAZIN1052-12-52R82:03:58170 2-[address] [place] [address] PATIENT NAME: KARMA ROWLAND ADMIT DATE: 09/02/22ACCOUNT NO: [id number] [place] [facility] [place]GE: 56 REPORT TYPE: CONSULTATION REPORT SEX: M ADMITTING PHYSICIAN:Mj Vences MD ATTENDING PHYSICIAN:Mj Vences MD CONSULTATION DATE: 09/03/2022 ENDOCRINE CONSULTATION PATIENT OF: Dr. Vences. Thank you very much for referring this patient. HISTORY OF PRESENT ILLNESS: This is a 56-year-old gentleman who is very well known to me from his previous hospital admission. The patient was transferred from medical floor to the rehab. The patient has significant history of gangrene of the right foot. The patient underwent below-knee amputation. The patient also a known diabetic for last 10 years and is presently on the Humalog and Lantus combination. He also has history of prostate abscess. The patient also has history of anemia. PHYSICAL EXAMINATION:GENERAL: Today, the patient is alert, awake, little bit apprehensive, is thin built.VITAL SIGNS: His heart rate is around 70, blood pressure is 120/70 mmHg.HEENT: Essentially unremarkable.NECK: Thyroid is palpable. Clinically, he is near euthyroid.CHEST: Bilateral vesicular breathing. He has mild bronchospasm.CARDIAC: Both first and second heart sounds. There is no third or fourth heartsound. 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 The stump looks okay. The wound is healing. LABORATORY DATA: His blood sugars have been between 92 and 88 mg/dL. CLINICAL IMPRESSION: Diabetes mellitus type 2, uncontrolled with complications;status post sepsis, status post gangrene of the right foot, status post below-knee amputation, prostate abscess and anemia. PLAN: The plan at this time is to increase p.o. intake, rehab, PT and OT and adjust insulin dose. Thanks for referring this patient. We will be following this patient with you. Dictated By: Braxton Chapin MD Date Dictated: 09/03/2022 15:03:13 PATIENT NAME: KARMA ROWLAND Date Transcribed: 09/03/2022 15:14:17/Agustin #: [id number] ID: [id number] by Logan Chapin MD On 09/03/2022 08:07:20 PM at 0807 PATIENT NAME: KARMA ROWLAND :14:00G.ME [id number] for patient lcxeVTPRXQVIMGSZVW9080-56-91W66:07:47 [facility] 2022-09-03 14:45:00 [id number]/lRD 8CSKWJNWah/LZMT6PtSV5fkbTU/lZ FVMkIwObD0ZlALs1q4amSi3GKjz1018-88-27M81:45:00 [facility] ([facility])Hospitalist ConsultationREPORT#:[id number] REPORT STATUS: SignedDATE:09/03/22 TIME: 1445 PATIENT: KARMA ROWLAND UNIT #: [id number]#: [id number] [address] AGE: 56 SEX: M ATTEND: Mj Vences MDADM AUTHOR: Tessie Junior * ALL edits or amendments must be made on the electronic/computer document * History of Present IllnessReason for consult:Medical ManagementChief complaint:admitted to rehabPCP:PCP: No Primary or Family Physician HPI: Leon [...] abscess underwent transrectal ultrasound aspiration of abscess andtransurethral resection of prostate and unroofing of abscess by urology Dr. Du. Endocrinology treated the DKA and blood sugars much improved. Patient's right foot was not salvageable and patient underwent right BKA by Dr. [...] is on heparin subcu for VTE. After surgery he is now being mobilized by PT and OT. He is wearing a maxine-tech orthotic for right knee/BKA protection. Prior to admission the patient was independent living in a single-story house with hisspouse with a few steps up to front and back door. 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 is at bedside. Patient denies nausea, vomiting, fever, chills, chest pain, shortness of breath with dizziness. He is requiring IV Dilaudid for pain control. Mental status back to baseline History - Adult longitudinalAdditional medical history:DM 2 since age 33 DM neuropathy HTN hyperlipidemiaAdditional surgical history:as aboveAdditional family history:reviewed and non contributoryAlcohol use: Denies EtOH useDrug use: Denies recreational drugsSmoking status for patients 13 years old or older: Never SmokerOther social history: Local resident, Good social supportAllergies:Coded Allergies:No Known Allergies (03/23/11) Review of SystemsAll systems rev neg: except as marked ObjectiveVS/I OLast Documented: Result Date Time Pulse Ox 100 09/03 700 B/P 118/65 09/03 700 B/P Mean 82.6 09/03 07 Temp 97.3 09/03 07 Pulse 84 09/03 0701 Resp 16 09/03 07 O2 Delivery Room air 09/03 0018 24 hour I O ending at 0700: 09/03 0700 09/02 1900 Intake Total 240 Output Total 850 Balance -610 Intake, Oral 240 Number 0 Incontinent Voids Number Voids 1 Output, Urine 850 General appearance: alert, awakeHead/Eyes: atraumatic, clear corneaNeck: full range of motion, non-tenderCardiovascular: normal capillary refill, normal heart sounds, regular rate rhythmRespiratory: aerating well, clear to auscultationAbdomen: non-tender, normal bowel soundsGenitourinary: no flank painExtremities: moves all, normal capillary refillMusculoskeletal: normal inspection, painless range of motionNeuro/DIRECTOR OPERATING ROOM: alert, oriented X 3, 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 Considered stroke alert: noSkin: dry, intactPsychiatry: normal affect, normal judgment/insight Diagnosis, Assessment PlanConsultants: cardiology, endocrinology, hospitalist, infectious disease, podiatry Free Text DxA P NotesFree Text DxA P Notes:ASSESSMENT:Gangrene of right foot s/p Below- knee amputation Prostate abscessMRSA bacteremiaHx of Diabetes, Diabetic neuropathy PLANS: Continue with ABx as dierected- currently on Daptomycin and CefepimeContinue with PT/OT per primary Fall precautionsNutritional supportpain controlTight glycemia control- endocrine on board, insulin adjustmentsWound care as directedHepain PPXContinue with supportive / care at 2154 RPT #:[id number] OF REPORTDOGowpbzuejsap1537-72-17E64:45:00G.PDOC2 [id number] for patient avrwCBOTMPCNYNXFXZ2101-62-83Q58:55:06 [facility] 2022-09-03 14:27:00 [id number] mX3dqsJyn+gDTr70cmEMVGfpfLHfb mHUOE4EhJChpz5ucB57BsBuro6P2263-41-57U02:27:00 [facility] ([facility])Infectious Dis. Progress NoteREPORT#:[id number] REPORT STATUS: SignedDATE:09/03/22 TIME: 7 PATIENT: KARMA ROWLAND UNIT #: [id number]#: [id number] [address] [birth year] AGE: 56 SEX: M ATTEND: [facility]j [facility]ences [facility] AUTHOR: Merry Wolff MD * ALL edits or amendments must be made on the electronic/computer document * SubjectiveHPI:PT is a 56yr old male with history of diabetes mellitus type 2, hypertension whowas admitted with altered mental status and right-sided foot infection. According to him, he noticed a blister on his right foot around 3 days prior to presentation. His foot got progressively more swollen and erythema extended proximally to his lateral foot and ankle. CT abdomen and pelvis with contrast is concerning for possible prostate abscess. CT of lower extremity without contrast shows extensive soft tissue edema with mottled gas in the subcutaneous and intramuscular compartments of the foot, compatible with gas-forming infection. Patient's blood cultures have come back positive for MRSA in 2 out of 2 sets. PT has had persistent (+)Ve cx for MRSA 08/18- 08/22. He underwent a debridement of his foot on 08/19 and cx grew MRSA. PT was started on Vancomycin and clindamycin on 08/18. His MRI showed a prostate abscess. 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 Pt underwent a transrectal aspiration and unroofing of prostate abscess 08/26 and cx grew Citrobacter, Enterococcus, MRSA. He also hada BKA of right leg 08/28. JIMENA done 09/02. Pt was transferred to Rehab on 09/02. 09/03 Pt is doing well, blood sugars are on the low side todayPatient reports:No: cough, diarrhea, fever, headache, nausea, shortness of breath, vomiting. Portions of this section were scribed by Jill Quintero on 09/03/22 at 1501 Objective GeneralVS/I O:Vital SignsDate Temp Pulse Resp B/P B/P Mean Pulse Ox QaT738/11-09/03 97.3-99.1 81-87 16-17 116-164/50-85 72.3-111.0 94-100 Last [...] 0701 97.3 84 16 118/65 82.6 100 / 0018 97.3 81 16 157/75 102.4 98 [...] (lb): Weight (oz): Weight (kg): Antibiotic start date:Antibiotic: daptomycin Start Date:08/28- Antibiotic: cefepime Start Date:09/01- Antibiotic: merremStart Date:08/27-09/01 Physical ExamGeneral appearance: alert, awake, orientedHead/Eyes: atraumatic, clear cornea, EOMI, normal conjunctiva/sclera, normal eyelids/periorb, normocephalic, PERRLENT: moist mucosal membranes, normal dentitionNeck: full range of motionCardiovascular: normal heart sounds, regular rate rhythmRespiratory: clear to auscultation, aerating wellAbdomen: non-tender, normal bowel sounds, softExtremities: moves all, right BKA Left foot wound +dressing in placeNeuro/DIRECTOR OPERATING ROOM: alert, oriented X 3Skin: dry, intact ResultsFindings/Data:Laboratory Tests 09/03 09/03 09/03 09/03 09/03 1233 1143 1116 0518 0415Chemistry Sodium (134 - 147 mEq/L) 135 Potassium [...] 110 MG/DL) 210 H 159 H 102 257 H Laboratory Tests 09/03 0415 Hematology [...] % (Auto) (14.0 - 32.0 %) 15.1 Lenoir % (Auto) (4.8 - 9.0 %) 6.8 Eos % (Auto) (0.3 - 3.7 %) 2.3 Baso % (Auto) (0.0 - 2.0 %) 0.3 Neut # (Auto) (2.0 - 7.6 x10 3/uL) 6.51 Lymph # (Auto) (1.0 - 3.8 x10 3/uL) 1.31 Lenoir # (Auto) (0.1 - 0.8 x10 3/uL) 0.59 Eos # (Auto) (0.0 - 0.2 x10 3/uL) 0.20 Baso # (Auto) (0.0 - 0.2 x10 3/uL) 0.03 Abs Immat Gran (auto) (0.00 - 0.03 x10 3/uL) 0.04 H Add Manual Diff NO Immature Gran % (0.0 - 2.0 %) 0.5 Nucleated RBC % (0 - 0 %) 0.0 Nucleated RBCs # (Man) (0.0 - 0.1 x10 3/uL) 0.00 Microbiology Date/Time Procedure - Status Source Growth 09/03 6506 MRSA DNA Surveillance Screen - COMP NASAL Laboratory Tests: 09/03 09/03 09/03 09/03 09/03 1233 1143 1116 0518 0415Chemistry Sodium (134 - 147 mEq/L) 135 Potassium [...] Prealbumin (16.0 - 40.0 mg/dL) < 5.0 LHematology WBC (4.5 - 11.0 x10 3/uL) 8.7 [...] % (Auto) (14.0 - 32.0 %) 15.1 Lenoir % (Auto) (4.8 - 9.0 %) 6.8 Eos % (Auto) (0.3 - 3.7 %) 2.3 Baso % (Auto) (0.0 - 2.0 %) 0.3 Neut # (Auto) (2.0 - 7.6 x10 3/uL) 6.51 Lymph # (Auto) (1.0 - 3.8 x10 3/uL) 1.31 Lenoir # (Auto) (0.1 - 0.8 x10 3/uL) 0.59 Eos # (Auto) (0.0 - 0.2 x10 3/uL) 0.20 Baso # (Auto) (0.0 - 0.2 x10 3/uL) 0.03 Abs Immat Gran (auto) (0.00 - 0.03 0.04 Hx10 3/uL) Add Manual Diff NO Immature Gran % (0.0 - 2.0 %) 0.5 Nucleated RBC % (0 - 0 %) 0.0 Nucleated RBCs # (Man) (0.0 - 0.1 0.00x10 3/uL) 09/02 09/02 09/02 09/02 1929 1908 1732 1513 Chemistry POC Glucose (70 - 110 MG/DL) 210 H 159 H 102 257 H Microbiology: Date/Time Procedure - Status Source Growth 09/03 0415 MRSA DNA Surveillance Screen - COMP NASAL Medication(s) Ordered:Anti-Infective Agents Sig/Jan Start time Last Medication Dose Route Stop Time Status Admin Vancomycin HCl 1,000 MG Q24H 09/03 1500 CKD Sodium Chloride 250 ML IV 09/24 2359 Miscellaneous 1 EACH ASDIR 09/03 0130 CKD Information IV 10/03 0129 Cefepime HCl 1 GM Q6H 09/02 2100 AC 09/03 Sodium Chloride 10 ML IV 09/13 2058 0809 Vancomycin HCl 1,000 MG DAILY 1400 09/02 1400 DC Sodium Chloride 250 ML IV 09/08 1459 Blood Formation,Coagulation Sig/Jan Start time Last Medication Dose Route Stop Time Status Admin Heparin Sodium 5,000 UNIT Q8HR 09/02 2200 CKD 09/03 SUBQ 10/02 2159 0458 Cardiovascular Drugs Sig/Jan Start time Last Medication Dose Route Stop Time Status Admin Hydralazine HCl 10 MG Q6H PRN PRN 09/01 1330 AC IV 10/01 1329 Central Nervous System Agents Sig/Jan Start time Last Medication Dose Route Stop Time Status Admin Hydrocodone Bitart/ 1 TAB Q4H PRN PRN 09/03 1400 AC Acetaminophen PO 10/18 1300 Hydromorphone HCl 1 MG Q6H PRN PRN 09/03 1400 AC IV 10/18 1300 Hydromorphone HCl 1 MG Q3H PRN PRN 09/01 1415 DC 09/03 IV 09/06 1414 1019 Hydromorphone HCl [...] Lispro 5 UNIT AC 09/03 0730 CKD 09/03 SUBQ 10/03 0729 0747 Insulin Glargine 15 UNIT BEDTIME 09/02 2100 CKD 09/02 SUBQ 10/02 2058 2120 Insulin Human Lispro 0 AC HS 09/02 2100 AC SUBQ 10/02 205 Glucagon 1 MG ASDIR PRN 09/01 1330 AC IM 10/01 1329 Local Anesthetics (Parenteral) Sig/Jan Start time Last Medication Dose Route Stop Time Status Admin Lidocaine 1 PATCH DAILY 09/03 0900 AC 09/03 TOPICAL 10/03 0859 0810 Microbiology:09/03 0415 NASAL: MRSA DNA Surveillance Screen - COMP Portions of this section were scribed by Jill Quintero on 09/03/22 at 1508 Diagnosis, Assessment PlanFree Text A P:*MRSA bacteremia-Initial blood cultures from 08/18/2022 positive for MRSA in 2 out of 2 sets.-Repeat blood cultures 08/21/2022 are already positive for MRSA in 2 out of 2 sets, suggesting persistent high-grade bacteremia.-TTE 08/18/2022 negative for any obvious vegetations.-08/28 neg-JIMENA 09/02 pending results*Prostatic abscess-s/p transrectal aspiration and unroofing on 08/26-cx MRSA, citrobacter (r-cefazolin) Enterococcus raffinosus (S-amp,pcn, vancomycin), bacteriodes*ERIKA*Hyponatremia*Diabetic neuropathy*Diabetes mellitus type 2*Hypertension 09/03Follow JIMENA results; may need 6 weeks of daptomycin if (+)VE-cont on Cefepime and Daptomycin til 09/24 for treatment of Prostate abscess-follow esr and crpConsultants: cardiology, endocrinology, hospitalist, infectious disease, podiatry Portions of this section were scribed by Jill Quintero on 09/03/22 at 1501 at 2013 RPT #:[id number] OF REPORTPRProgress ucvb8528-86-46A02:27:00G.IUMK61484724-4629UNMuzjx able for patient bzufDTEAFXRHTRLJJD3448-35-02A31:15:18 [facility] 2022-09-03 11:38:00 [id number] 7NP5kIC3a0MV1a9aoNuUl1TR2+aLZ ZVrmZo6w9+Iln4/HlFC5S2t6yJM5115-31-39B88:38:00 [facility] ([facility])Pharmacy Prog.Note-VancomycinREPORT#:[id number] REPORT STATUS: SignedDATE:09/03/22 TIME: 1138 PATIENT: KARMA ROWLAND UNIT #: [id number]#: [id number] ROOM/BED: 537-1DOB: [birth year] AGE: 56 SEX: M ATTEND: Mj Vences [facility] AUTHOR: Wilian Jasso [facility] * ALL edits or amendments must be made on the electronic/computer document * Vancomycin Vancomycin Medication TherapyGoal: AUC 400-600 mg*hr/LIndication for treatment:OM and MRSA Bacteremia Current therapy:vanc 1 g IV Q24HVS and I/O:Vital SignsDate Temp Pulse Resp B/P B/P Mean Pulse Ox YkP204/-09/03 97.3-99.1 81-87 16-17 116-164/50-85 72.3-111.0 94-100 72 hours ending at 0700 09/03 0700 09/02 1900 09/02 0700 09/01 1900 09/01 08/31 0700 1900Intake 240TotalOutput 850TotalBalance -610 Intake, 240OralNumber 0IncontinentVoidsNumber 1VoidsOutput, 850Urine 72 Hour I O Total 09/03 0700 09/02 0700 09/01 0700 Intake Total 240 Output Total 850 Balance -610 Labs:Laboratory Test : 09/03 414 Chemistry BUN (7 - 18 mg/dL) 22 H Creatinine (0.6 - 1.3 mg/dL) 1.1 Hematology WBC (4.5 - 11.0 x10 3/uL) 8.7 Microbiology:09/03 414 NASAL: MRSA DNA Surveillance Screen - RECD Treatment plan: consult, cont current regimen/doseRegimen: PT is a 56yr old male with [...] extremity without contrast shows extensive soft tissue edema with mottled gas in the subcutaneous and intramuscular compartments of the foot, compatible with gas-forming infection. Patient's blood cultures have come back positive for MRSA in2 out of 2 sets. PT has had persistent (+)Ve cx for MRSA 08/18- 08/22. He underwent a debridement of his foot on 08/19 and cx grew MRSA. PT was started onVancomycin and clindamycin on 08/18. His MRI showed a prostate abscess. 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 Patient is s/p ICU stay with merrem/daptomycin. ID adjusting regimen to cefepime/vancomycin. Pharmacy consulted todose vancomycin. Consulting provider: Dr. Padillaication: MRSA BacteremiaGoal: AUC 400-600 mcg*hr/ml A/P 09/03:* [facility] rehab. D/w RN to enter weight. Weight 09/02 70 kg. * Afebrile, WBC 8.7 * BUN 22, SCr 1.1, eCrCl 66 ml/min, UOP 1650 ml/24hrs* Micro: 08/26 prostate abscess: C farmeri, MRSA, E raffinosus. 08/18, 08/19, 08/21, 08/22, 08/25 blood MRSRA. 08/28 blood - NGTD. * Imagin/30 MRI - OM of talus, caeianeus and navicular bone; follow up JIMENA result * Regimen: End date 09/24 per ID. Pt was on vanc 08/18 to 08/24. Regimen then adjusted to daptomycin and teflaro on 08/25. Pt restarted on vanc 09/01 with vancomycin 1 g IV q24h. * Monitoring: Renal function stable. Plan for AUC monitoring with peak on 09/03 1700 and trough on 09/04 at 1430. AUC Goal 400-600 mcg*hr/ml.* Pharmacy will monitor and adjust dose as needed. Thanks for the consult. at 1159 RPT #:[id number] OF REPORTPRProgress psmg7730-26-65T13:38:00G.[id number] able for patient ktnnTGDSQYMZKBZHZT0906-95-69K07:02:33 [facility] 2022-09-03 11:21:00 [id number] VDJGJXUtI15reLzZXMWQU1ZSJNB6y dwCPiPPJSZW/KykhutgBr7n63Qh3623-44-39L57:21:00 [facility] ([facility])Cardiology Progress NoteREPORT#:[id number] REPORT STATUS: SignedDATE:09/03/22 TIME: 1121 PATIENT: KARMA ROWLAND UNIT #: [id number]#: [id number] [address] [birth year] AGE: 56 SEX: M ATTEND: Mj Vences MDADM AUTHOR: Rohit Benitez RESEARCH MANUFACTURING OPERATOR * ALL edits or amendments must be made on the electronic/computer document * Rohit Benitez 09/03/22 1121:SubjectiveChief complaint:weakness Free Text Subj NotesFree Text Subj Notes:Patient seen and evaluated. Transferred to rehab. Chart reviewed. No new symptoms, feeling well. Denies chest pain, palpitations, or shortness of breath. Objective GeneralVS/I O:24 hour I O ending at 0700: 09/03 [...] WEIGHT: Weight (lb): Weight (oz): Weight (kg): Medications:Active Meds + DC'd Last 24 HrsLidocaine (LIDODERM) 1 PATCH DAILY TOPICAL Insulin Human Lispro (HUMALOG) 5 UNIT AC SUBQ (CKD) Miscellaneous Information (VANCOMYCIN PHARMACY TO DOSE) 1 EACH ASDIR IV (CKD) Heparin Sodium (HEPARIN 5000 UNITS/ML) 5,000 UNIT Q8HR SUBQ (CKD) Cefepime HCl (MAXIPIME) 1 GM Q6H IV Sodium Chloride (SODIUM CHLORIDE) 10 MLInsulin Glargine (Lantus/Semglee) 15 UNIT BEDTIME SUBQ (CKD) Insulin Human Lispro (HUMALOG) 0 AC HS SUBQ Vancomycin HCl (VANCOMYCIN HCL) 1,000 MG DAILY 1400 IV (CKD) Sodium Chloride (SODIUM CHLORIDE 0.9%) 250 MLHydromorphone HCl (DILAUDID) 1 MG Q3H PRN PRN IV Hydromorphone HCl (DILAUDID) 0.5 MG Q3H PRN PRN IV Acetaminophen (TYLENOL) 650 MG Q6H PRN PRN PO Bisacodyl (DULCOLAX) 10 MG DAILY PRN PRN RECTAL Dextrose/Water (DEXTROSE 10% IN WATER) 125 ML ASDIR PRN IV (CKD) Dextrose/Water (DEXTROSE 10% IN WATER) 250 ML ASDIR PRN IV (CKD) Docusate Sodium (COLACE) 100 MG Q12H PRN PRN PO Glucagon (GLUCAGON) 1 MG ASDIR PRN IM Hydralazine HCl (APRESOLINE) 10 MG Q6H PRN PRN IV Ondansetron HCl (ZOFRAN) 4 MG Q6H PRN PRN IV Physical ExamGeneral appearance: alert, awake, orientedNeck: no bruit/NL carotids, no JVDCardiovascular: CV assessment: regular rate and rhythm, no ectopy, no gallopRespiratory: clear to auscultation, no distressAbdomen: soft, non-tenderLower extremity: LE assessment: normal temperature, no edemaNeuro/DIRECTOR OPERATING ROOM: alert, oriented X 3Wound/incision: Location:right bkaPsychiatry: normal affect, normal judgment/insight, normal mood ResultsFindings/Data:Laboratory Tests 09/03 09/03 09/02 09/02 09/02 0518 6820 1929 1908 1732Chemistry Sodium (134 - 147 mEq/L) 135 Potassium [...] % (Auto) (14.0 - 32.0 %) 15.1 [place] % (Auto) (4.8 - 9.0 %) 6.8 Eos % (Auto) (0.3 - 3.7 %) 2.3 Baso % (Auto) (0.0 - 2.0 %) 0.3 Neut # (Auto) (2.0 - 7.6 x10 3/uL) 6.51 Lymph # (Auto) (1.0 - 3.8 x10 3/uL) 1.31 Lenoir # (Auto) (0.1 - 0.8 x10 3/uL) 0.59 Eos # (Auto) (0.0 - 0.2 x10 3/uL) 0.20 Baso # (Auto) (0.0 - 0.2 x10 3/uL) 0.03 Abs Immat Gran (auto) (0.00 - 0.03 x10 3/uL) 0.04 H Add Manual Diff NO Immature Gran % (0.0 - 2.0 %) 0.5 Nucleated RBC % (0 - 0 %) 0.0 Nucleated RBCs # (Man) (0.0 - 0.1 x10 3/uL) 0.00 Laboratory Tests 09/03 0415 Chemistry Magnesium (1.80 - 2.40 mg/dL) 1.89 Diagnosis, Assessment PlanConsultants: cardiology, endocrinology, hospitalist, infectious disease, podiatry Free Text DxA P NotesFree Text DxA P Notes:Impression: 1. Debility2. Infected right foot status post BKA3. Bacteremia4. Diabetes5. Hypertension 6. Anemia Recommendation: Patient initially presented with DKA and sepsis. Diagnosed with right foot infection, underwent I D, now status post BKA. Patient had persistent bacteremia with MRSA, underwent JIMENA with negative findings of endocarditis. Patient now transferred to rehab for physical therapy. Known cardiac history ofhypertension and hyperlipidemia. Vital signs stable. Echocardiogram with normal LVEF, grade 1 diastolic dysfunction, mildly dilated LA, and no significant valvular abnormalities. Continue to monitor blood pressure trend. Continue wound care and IV antibiotic therapy. Continue PT/OT. Supportive care. Plan of care discussed with patient, RN and Dr. Parham. Napoleon Parham 09/06/22 1632:Diagnosis, Assessment PlanAdditional comments:Patient was seen and examined at bedside, agree with above assessment and plan as documented by nurse practitioner. Will follow. at 2019 at 1637 RPT #:[id number] OF REPORTPRProgress [id number]:21:00G.[id number] able for patient zjoaMYNWEOIHFRUBDP0214-03-79V72:19:19 [facility] 2022-09-03 11:21:00 [id number] R+lE08UMoRfqpdtvufnK5AkMMNS3245-48-86L98:21:00 [facility] ([facility])Pain Management Consult NoteREPORT#:[id number] REPORT STATUS: SignedDATE:09/03/22 TIME: 112 PATIENT: KARMA ROWLAND UNIT #: [id number]#: [id number] [address] [birth year] AGE: 56 SEX: M ATTEND: Mj Vences [facility] AUTHOR: Ben Klein PA * ALL edits or amendments must be made on the electronic/computer document * Ben Klein 09/03/22 1121:History of Present IllnessPrimary Care Physician:Attending: Mj Vences MDHPI:Patient is a 56-year-old male who was initially admitted in for AMS from DKA, and right foot infection. Review of SystemsAdditional notes:14 point ROS undertaken unremarkable except as noted in HPI, past medical and surgical history History Past HistoryMedications:Home Medications:Medication Dose/Rte/Freq Days Qty Entered Last Max Daily Dose Reviewed HEPARIN SODIUM,PORCINE 5,000 UNIT SUBQ 14 42 09/01/22 (HEPARIN SOD 1ML) Q8HR 1008Strength: 5,000 UNIT/MLVIAL hydrALAZINE (APRESOLINE) 10 MG IV 10 09/01/22Strength: 20 MG/ML AMPUL Q6H PRN PRN SBP 1009 GREATER THAN 160 DOCUSATE SODIUM 100 MG PO 14 09/01/22 (COLACE) Q12H PRN PRN 1009Strength: 100 MG CAP CONSTIPATION BISACODYL (DULCOLAX) 10 MG RECTAL 14 09/01/22Strength: 10 MG SUPP.RECT DAILY PRN PRN 1009 CONSTIPATION, SECOND LINE ONDANSETRON 4 MG IV 14 09/01/22Strength: 4 MG/2 ML VIAL Q6H PRN PRN N/V IF 1009 NOT ON PO DIET INSULIN GLARGINE 15 UNIT SUBQ 14 09/01/22 (LANTUS) BEDTIME 1009Strength: 100 UNIT/ML VIAL INSULIN LISPRO (HumaLOG) 0 UNIT SUBQ AC HS 14 09/01/22Strength: 100 UNIT/ML VIAL 1010 INSULIN LISPRO (HumaLOG) 5 UNIT SUBQ AC 14 09/01/22Strength: 100 UNIT/ML VIAL 1010 VANCOMYCIN (VANCOCIN) 1 GM IV Q12H 7 09/02/22Strength: 1 GRAM VIAL 1405 CEFEPIME (MAXIPIME) 1 GM IV Q6HR 28 09/02/22Strength: 1 GRAM VIAL 1405 Current Hospital Medications:Anti-Infective Agents Sig/Jan Start time Last Medication Dose Route Stop Time Status Admin Miscellaneous 1 EACH ASDIR 09/03 0130 CKD Information IV 10/03 0129 (VANCOMYCIN PHARMACY TO DOSE) Cefepime HCl 1 GM Q6H 09/02 2100 AC 09/03 (MAXIPIME) IV 09/13 205 0809 Sodium Chloride 10 ML (SODIUM CHLORIDE) Vancomycin HCl 1,000 MG DAILY 1400 09/02 1400 CKD (VANCOMYCIN HCL) IV 09/08 1459 Sodium Chloride 250 ML (SODIUM CHLORIDE 0.9%) Blood Formation,Coagulation Sig/Jan Start time Last Medication Dose Route Stop Time Status Admin Heparin Sodium 5,000 UNIT Q8HR 09/02 2200 CKD 09/03 (HEPARIN 5000 UNITS/ SUBQ 10/02 2159 0458 ML) Cardiovascular Drugs Sig/Jan Start time Last Medication Dose Route Stop Time Status Admin Hydralazine HCl 10 MG Q6H PRN PRN 09/01 1330 AC (APRESOLINE) IV 10/01 1329 Central Nervous System Agents Sig/Jan Start time Last Medication Dose Route Stop Time Status Admin Hydromorphone HCl 1 MG Q3H PRN PRN 09/01 1415 AC 09/03 (DILAUDID) IV 09/06 1414 1019 Hydromorphone [...] Lispro 5 UNIT AC 09/03 0730 CKD 09/03 (HUMALOG) SUBQ 10/03 0729 0747 Insulin [...] AC 09/03 (LIDODERM) TOPICAL 10/03 0859 0810 Allergies:Coded Allergies:No Known Allergies (03/23/11) Objective Physical ExamVS/I O:Last Documented: Result Date Time Pulse Ox 100 09/03 07 B/P 118/65 09/03 07 B/P Mean 82.6 09/03 0701 Temp 36.3 09/03 07 Pulse 84 09/03 0701 Resp 16 09/03 0701 O2 Delivery Room air 09/03 0018 24 hour I O ending at 0700: 09/03 0700 09/02 1900 Intake Total 240 Output Total 850 Balance -610 Intake, Oral 240 Number 0 Incontinent Voids Number Voids 1 Output, Urine 850 PATIENT WEIGHT: Weight (lb): Weight (oz): Weight (kg): ResultsFindings/data:Laboratory Tests: 09/03 09/03 09/02 09/02 0518 0415 1929 1908Chemistry Sodium (134 - 147 mEq/L) 135 Potassium [...] Prealbumin (16.0 - 40.0 mg/dL) < 5.0 LHematology WBC (4.5 - 11.0 x10 3/uL) 8.7 [...] % (Auto) (14.0 - 32.0 %) 15.1 Lenoir % (Auto) (4.8 - 9.0 %) 6.8 Eos % (Auto) (0.3 - 3.7 %) 2.3 Baso % (Auto) (0.0 - 2.0 %) 0.3 Neut # (Auto) (2.0 - 7.6 x10 3/uL) 6.51 Lymph # (Auto) (1.0 - 3.8 x10 3/uL) 1.31 [place]oir # (Auto) (0.1 - 0.8 x10 3/uL) 0.59 Eos # (Auto) (0.0 - 0.2 x10 3/uL) 0.20 Baso # (Auto) (0.0 - 0.2 x10 3/uL) 0.03 Abs Immat Gran (auto) (0.00 - 0.03 x10 3/uL) 0.04 H Add Manual Diff NO Immature Gran % (0.0 - 2.0 %) 0.5 Nucleated RBC % (0 - 0 %) 0.0 Nucleated RBCs # (Man) (0.0 - 0.1 x10 3/uL) 0.00 09/02 09/02 1732 1513 Chemistry POC Glucose (70 - 110 MG/DL) 102 257 H Microbiology: Date/Time Procedure - Status Source Growth 09/03 0415 MRSA DNA Surveillance Screen - RECD NASAL Diagnosis, Assessment PlanFree text A P:A/P:Patient is a 56 year old male who presents with: Past Medical History: Prostate abscess, right foot foot and ankle gangrene, diabetes, hypertension, hyperlipidemiaPast Surgical History: TURP, right BKAFamily History: NoncontributorySocial History: Denies tobacco, alcohol, or drug useAllergies: NKDA Recent prostate abscess-Status post TURP with unroofing of abscess-IV antibiotics with vancomycin until 09-24-2022 Acute postoperative pain, right foot and ankle gangrene, requiring BKA-Patient is at risk for further amputations or loss of limb due to comorbid conditions-Status post right BKA 08/28/2022-Tylenol 650 mg p.o. every 6 hours as needed pain scale 1 3-Sheldon 10/325 1 tablet p.o. every 4 hours as needed pain scale 4 10-Dilaudid 1 mg IV every 6 hours as needed pain scale 7 10, second line therapy-patient will require close monitoring while using IV narcotics for any deleterious effect-Lidoderm patch to left ankle daily-IV antibiotics with vancomycin until 2-7-5911-Local wound care Uncontrolled diabetes, diabetes with complications, recent DKA-Hemoglobin A1c 13.4-Recent right foot and ankle gangrene-Insulin sliding scale, FSBS, good glycemic control Hypertension-We will monitor hypertension and tachycardia due to pain, and hypotension as well as bradycardia secondary over sedation with narcotics-Hydralazine as needed- Elevated LFTs-08/20/22-AST 51, ALT 22-09/03/2022-AST 15, ALT 7-Patient will require close monitoring since he is using narcotics with Tylenol Impaired functional mobility, balance, gait, and endurance-PT/OT Constipation-We will monitor while utilizing opioid narcotic medications.-Adequate fluid intake also discussed.-Colace 100 mg p.o. twice daily as needed-Dulcolax 10 mg rectally daily as needed- Patient has failed conservative medical therapy.Patient will require monitoring while utilize narcotic medications for any adverse effects, and will adjust as neededPlan of care discussed with patient and nurseAll diagnostics of last 24 hours been reviewed. Risks versus benefits of opioid medications were reviewed to include, but not limited to respiratory depression, accidental overdose, altered mental status, sudden , constipation which could result in bowel obstruction, seizures, withdrawal, dependency addiction, risk for falls. Case discussed with Dr Ng whom agrees. Thank you for the consultation. [place] DISABILITY HEARING OFFICER:-database searched, no information found Kingsley Ng 09/21/22 2355:Attestations Physician AttestationAgree w/findings plan:The patient was seen and examined by Ben Klein. I personally developed the care plan, which was continued by the mid-level provider. I was immediately available. at 2048 at 2358 RPT #:[id number] OF REPORTKRKglqetpiszng1926-96-29Z30:21:00G.PDOC2 [id number] for patient xnxrNBIUMUMMJYUKMQ3476-63-69Z28:48:51 [facility] 2022-09-03 08:22:00 [id number] XjrEs43Rzeng2mapEic+LJKnv8KI/ jLeZm9vaQin5gqyRuot8f/OBlyA4031-10-40O67:22:00 [facility])Rehab Indiv Overall POCREPORT#:[id number] REPORT STATUS: SignedDATE:09/03/22 TIME: 821 PATIENT: KARMA ROWLAND UNIT #: [id number]#: [id number] [address] [birth year] AGE: 56 SEX: M ATTEND: Mj Vences AUTHOR: Mj Vences MD * ALL edits or amendments must be made on the electronic/computer document * Individualized Overall POC HPIImpairment group: amputation of limb NOTE Document ONLY ONE Impairment Group Amputation of limb: unilateral lower limb (R BKA)Etiologic diagnosis:Gas gangrene of right foot andankle S/P R BKA Medical Expected CourseExpected DC destination:Expected DC destination: Home Problem List/A P: 1. Gangrene of right foot 2. Below-knee amputation of right lower extremity 3. MRSA bacteremia Permanent Comment Treated prior to admission to Rehab 4. Cellulitis of foot, right 5. DKA (diabetic ketoacidosis) 6. Hyperglycemia 7. ERIKA (acute kidney injury) 8. Postoperative pain 9. Acute anemia 10. Prostate abscess 11. Impaired functional mobility, balance, gait, and endurance Medical prognosis: goodMedical prognosis details: pt motivation, family/caregiver support, cognition, D/C planExpected course of Tx:-PLOF: Independent with transfers and gait-Amputee rehab program-Comprehensive inpatient rehabilitation with physical, occupational and speech therapy 3 hours a day for 5 to 6 days per week.-15/12 rehabilitation physician supervision.-15/12 rehabilitation nursing care.-Case management for safe discharge planning.-Rehab MD to monitor comorbidities and functional progress.-Decubitus prevention-DVT prophylaxis-subcu heparin-Strict fall and safety precautions-Work on bed mobility, transfer training, ADLs, pre-gait and gait exercises-Increase endurance and strength-Monitor pain with therapies-OOB to chair-Monitor p.o. intake and nutrition-Glycemic control, blood sugars improved as per endocrinology-Continue antibiotics per ID-Endocrinology, ID, podiatry, cardiology, IM, pain consulted-Continue wound care, NWB RLE-Amputee rehabilitation-Advance therapies as tolerated Functional Expected CourseFunctional expected course:The data set between the solid lines has been imported from multidisciplinary team documentation: ANTICIPATED SERVICES IN ACUTE INPATIENT REHAB: DISCIPLINE Physical Therapy Occupational Therapy Speech TherapyINTENSITY (minutes/day) 90 90FREQUENCY (days/week) 7 5DURATION (# of days) 17 17 EXPECTED FUNCTIONAL [...] Med cond/safety concern object discharge goal: CARE [place] 50 feet Independent (6) with two turns discharge goal: CARE [place] 150 Independent (6) feet discharge goal: CARE Toileting hygiene Supervise/touch asst (4) discharge goal: CARE Transfer on/off toilet Supervise/touch asst (4) or commode discharge goal: CARE Eating discharge goal: Independent (6) CARE Oral hygiene Independent (6) discharge goal: CARE Shower/bathe Independent (6) self discharge goal: CARE Upper body Independent (6) dressing discharge goal: CARE Lower body Independent (6) dressing discharge goal: CARE Putting on/taking Independent (6) off footwear discharge goal: Bowel function goal: PATIENT WILL REMAIN CONTINENT OF BOWELBladder function goal: PATIENT WILL REGAIN BLADDER CONTROL ELOS Attestation:Based upon the review of clinical staff recommendations of frequency, duration and intensity and individual assessment of this patient, I estimate the following: See H P Estimated length of stay:17 days MD Review/RecommendationAttestation:Based upon my physical evaluation of the patient and input from the interdisciplinary team members I have developed this interdisciplinary overall plan of care and determined the admission to the IRF is reasonable and necessary.The IOPOC will be updated weekly and modified under my direction. Patient can be expected to actively participate in, and benefit from, an intensive rehab therapy program whose intensity is not provided in lower levels of care.Complex acute rehab needs: Custom therapy tx plan, Mgt of complex Co-morb, Med adjustment/mgmt., New medical diagnosis, Postsurgery req mgt/care, Nutritional compromise, Hospitalist consult, VTE Risk at 0545 RPT #:[id number] OF REPORTCLClinical [id number]:22:00G.[id number] able for patient izfkUJPSRCGDGHZEMM1033-58-01J86:46:21 [facility] 2022-09-03 04:56:00 [id number] [id number]+WyU5402-60-18O88:56:00 [facility] ([facility])Rehab History PhysicalREPORT#:[id number] REPORT STATUS: SignedDATE:09/03/22 TIME: 455 PATIENT: KARMA ROWLAND UNIT #: [id number]#: [id number] [address] [birth year] AGE: 56 SEX: M ATTEND: Mj Vences MDADM AUTHOR: Guero Candelaria * ALL edits or amendments must be made on the electronic/computer document * See AddendumGuero Candelaria 09/03/22 0456:HPI HPIHPI:56 yo HAM with long h/o DM, and HTN who was admitted for fever, flulike symptomsand altered mental status on 08/18. He was doing well until about 3 days prior toadmission when he noted blister to have formed on the dorsum of his foot. His foot started progressively getting more swollen and the blisters started enlarging and extending to his lateral foot and ankle. He started feeling weak and nauseated. He was noted to have altered mentation and was brought to our ER.He was noted to be in DKA with Blood sugars greater than 600. He was seen by podiatry and surgery for BLE wounds and infection. He was treated in ICU for sepsis and DKA. He underwent incisional and excisional debridement of right footand right ankle by podiatry. Patient also found to have prostate abscess underwent transrectal ultrasound aspiration of abscess and transurethral resection of prostate and unroofing of abscess by urology Dr. Du. Endocrinology treated the DKA and blood sugars much improved. Patient's right foot was not salvageable and patient underwent right BKA by Dr. LEROY on 08/28. Patient blood cultures showed MRSA. Patient continued on antibiotics as per ID. MRI of the pelvis and foot completed. Patient required multiple PRBCs for anemia. Patient was found to have a possible small hematoma of the left calf onultrasound. He complains of pain and swelling of the left ankle. Patient hemodynamically stable and plans are to be transferred to stepdown unit. He is on heparin subcu for VTE. After surgery he is now being mobilized by PT and OT.He is wearing a maxine-tech orthotic for right knee/BKA protection. Prior to admission the patient was independent living in a single-story house with his spouse with a few steps up to front and back door. 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 is at bedside. Patient denies nausea, vomiting, fever, chills, chest pain, shortness of breath with dizziness. He is requiring IV Dilaudid for pain control. Mental status back to baseline. Pt is progressing slowly with therapy d/t weakness and pain, self care deficit, decreased endurance and balance, and decreased functional mobility. Pt requiring acute inpt rehab for multidisciplinary team of nursing, therapy, and physicians. Pt iswilling and able to partici- kathleen in 3 hr/day inpt rehab to d/c home safely. Pt's prior level of function was independent.Impairment group: amputation of limb NOTE Document ONLY ONE Impairment Group Amputation of limb: unilateral lower limb (R BKA)Etiologic diagnosis:Gas gangrene of right foot and ankle HistoryAdditional medical history:DM 2 since age 33 DM neuropathy HTN hyperlipidemiaAdditional surgical history:as aboveAdditional family history:reviewed and non contributoryAlcohol use: Denies EtOH useDrug use: Denies recreational drugsSmoking status for patients 13 years old or older: Never SmokerOther social history: Local resident, Good social supportMedications:Home Medications:HEPARIN SODIUM,PORCINE (HEPARIN SOD 1ML) 5,000 UNIT SUBQ Q8HR hydrALAZINE (APRESOLINE) 10 MG IV Q6H PRN PRN SBP GREATER THAN 160 DOCUSATE SODIUM (COLACE) 100 [...] Q12H CEFEPIME (MAXIPIME) 1 GM IV Q6HR Allergies:Coded Allergies:No Known Allergies (03/23/11) ROS ROSConstitutional:Reports: generalized weakness. Musculoskeletal:Reports: extremity pain. All systems rev neg: except as marked Objective Physical ExamVS:Last Documented: Result Date Time Pulse Ox 100 09/03 700 B/P 118/65 09/03 700 B/P Mean 82.6 09/03 700 Temp 97.3 09/03 700 Pulse 84 09/03 700 Resp 16 09/03 700 O2 Delivery Room air 09/03 0018 PATIENT WEIGHT: Weight (lb): Weight (oz): Weight (kg): General appearance: alert, awake, orientedPsych: alert, normal affect, oriented x 3HEENT: anicteric, sclera clearNeck: supple, no JVDCardiovascular: S1/S2, no murmurRespiratory: aerating well, clear bilaterallyAbdomen: bowel sounds present, non-distended, softSkin: no rash, R BKA wrapped with kerlix and JOAN. 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: alert, oriented X 3, CNII-XII intact ResultsFindings/Data:Laboratory Tests 09/03 09/03 09/02 09/02 09/02 0518 0415 1929 1908 1732Chemistry Sodium (134 - 147 mEq/L) 135 Potassium [...] L Total Alk Phosphatase (20 - 125 93IUnit/L) Total Protein (6.4 - 8.2 g/dL) 6.7 [...] % (Auto) (14.0 - 32.0 %) 15.1 [place]oir % (Auto) (4.8 - 9.0 %) 6.8 Eos % (Auto) (0.3 - 3.7 %) 2.3 Baso % (Auto) (0.0 - 2.0 %) 0.3 Neut # (Auto) (2.0 - 7.6 x10 3/uL) 6.51 Lymph # (Auto) (1.0 - 3.8 x10 3/uL) 1.31 [place] # (Auto) (0.1 - 0.8 x10 3/uL) 0.59 Eos # (Auto) (0.0 - 0.2 x10 3/uL) 0.20 Baso # (Auto) (0.0 - 0.2 x10 3/uL) 0.03 Abs Immat Gran (auto) (0.00 - 0.03 x10 3/uL) 0.04 H Add Manual Diff NO Immature Gran % (0.0 - 2.0 %) 0.5 Nucleated RBC % (0 - 0 %) 0.0 Nucleated RBCs # (Man) (0.0 - 0.1 x10 3/uL) 0.00 Diagnosis, Assessment Plan Diagnosis, Assessment PlanProblem List/A P: 1. Below-knee amputation of right lower extremity 2. Postoperative pain 3. Impaired mobility 4. Acute anemia 5. MRSA bacteremia 6. Cellulitis of foot, right 7. ERIKA (acute kidney injury) 8. Hyperglycemia 9. DKA (diabetic ketoacidosis) Free Text A P:Severe Gas gangrene right foot and right ankle associated with osteomyelitis andnecrotizing fasciitisS/p surgical debridement and washout08/28: S/p right BKA-Dr. Greenberggnificant impairment in self-care, ADLs and functional mobilityImpaired mobility and gaitPostoperative painDiabetic polyneuropathyDKA, DM 2, poorly controlled, A1c greater than 14PADMRSA bacteremia/sepsis-treated on acuteAKISevere hyponatremia-resolvedHTNAcute on chronic anemia requiring multiple transfusionsLeft calf hematomaEdema and clinical arthritis left ankleProstatic abscess 08/26: S/p transrectal ultrasound aspiration of abscess and transurethral resection of prostate and unroofing of abscess Plan:-PLOF: Independent with transfers and gait-Amputee rehab program-Comprehensive inpatient rehabilitation with physical, occupational and speech therapy 3 hours a day for 5 to 6 days per week.-15/12 rehabilitation physician supervision.-15/12 rehabilitation nursing care.-Case management for safe discharge planning.-Rehab MD to monitor comorbidities and functional progress.-Decubitus prevention-DVT prophylaxis-Strict fall and safety precautions-Work on bed mobility, transfer training, ADLs, pre-gait and gait exercises-Increase endurance and strength-Monitor pain with therapies-OOB to chair-Monitor p.o. intake and nutrition-Continue antibiotics per ID-Tight glucose control-Endocrinology, ID, podiatry, cardiology, IM consulted-Consult pain management-Continue wound care-Advance therapies as tolerated Total time 65 minutes greater than 50% of the time spent examining patient, discussing inpatient rehab requirements, plan of care, goals, therapies, labs, medications. All questions answeredReview of comorbidities:Postoperative anemia, ERIKA, DM, HTN, diabetic neuropathy, HLDCompare to PAS:POST ADMISSION PHYSICIAN EVALUATION ASSESSMENT: 1. Comparison of findings with the preadmission assessment are compatible with the post admission physician evaluation.2. Review of the patient's prior and current medical and functional conditions have been extensively reviewed and documented in this H F, and discussed with the referring physicians, patient and family. At this time, there has been no change in the patient's current medical or functional conditions and plans to go ahead with rehab are to begin today. Estimated length of stay:17 days Acute Rehab Attestation NOTE Attestation is for MD [facility] acute rehab needs: Custom therapy tx plan, Mgt of complex Co-morb, Med adjustment/mgmt., New medical diagnosis, Postsurgery req mgt/care, Nutritional compromise, Hospitalist consult, VTE Risk AlexmannMj 09/03/22 0820:HPI HPI NOTE Document ONLY ONE Impairment Group Diagnosis, Assessment Plan Diagnosis, Assessment PlanProblem List/A P: 1. Gangrene of right foot 2. Below-knee amputation of right lower extremity 3. MRSA bacteremia Permanent Comment Treated prior to admission to Rehab 4. Cellulitis of foot, right 5. DKA (diabetic ketoacidosis) 6. Hyperglycemia 7. ERIKA (acute kidney injury) 8. Postoperative pain 9. Acute anemia 10. Prostate abscess 11. Impaired functional mobility, balance, gait, and endurance Orders: Procedure Date/time Status HGB HCT 09/04 0400 Active PHYSICIAN CONSULT 09/03 0813 Active Information Only 09/02 1702 Active Consultants: cardiology, endocrinology, hospitalist, infectious disease, podiatryPlan discussed with: patient, collaborating MD, consultants, nurse, interdisc care team Code Status/Resusc. DiscussionResuscitation discussion: Discussed with: patientCode status: full code Acute Rehab Attestation NOTE Attestation is for onlyKhalif MD attestation:Based upon my evaluation, the patient's medical management and rehabilitation needs require an inpatient stay and close physician involvement. Patient can be expected to actively participate in, and benefit from, an intensive rehab therapy program whose intensity is not provided in lower levels of care. Significant barriers that can only be addressed in an acute inpatient rehab program, including, but not limited to:See preadmission screen.Complex acute rehab needs: Custom therapy tx plan, Mgt of complex Co-morb, Med adjustment/mgmt., New medical diagnosis, Postsurgery req mgt/care, Nutritional compromise, Hospitalist consult, VTE Risk Attestations Physician AttestationAgree w/findings plan:Patient seen and examined. Agree with the findings and plan as documented by DAVID Tran at 0822 at 1047 Addendum 1: 09/03/22 0826 by Mj Vences MD Correction:Impairment group: amputation of limb NOTE Document ONLY ONE Impairment Group Amputation of limb: unilateral lower limb (R BKA)Etiologic diagnosis:Gas gangrene of right foot andankle S/P R BKA at 0826 RPT #:[id number] OF REPORTHPHistory and physical [id number]:56:00G.[id number] AVAvailable for patient [id number]:22:17 [facility] 2022-09-02 15:11:00 [id number]+nIwRYbWhR [id number]+[id number]:11:00 [facility])Endocrinology Progress NoteREPORT#:[id number] REPORT STATUS: SignedDATE:09/02/22 TIME: 1511 PATIENT: KARMA ROWLAND UNIT #: [id number] [address] [birth year] AGE: 56 SEX: M ATTEND: Wilbert Ramires [facility] AUTHOR: Braxton Chapin MD * ALL edits or amendments must be made on the electronic/computer document * SubjectivePatient reports: no complaints Objective GeneralVS:Last Documented: Result Date Time Pulse Ox 100 09/02 1244 B/P 149/70 09/02 1244 O2 Delivery Nasal cannula 09/02 1244 O2 Flow Rate 2 09/02 1244 Pulse 79 09/02 1244 Resp 18 09/02 1244 B/P Mean 0.0 09/03 519 Temp 36.4 09/03 519 PATIENT WEIGHT: Weight (lb): 154Weight (oz): 5.18Weight (kg): 70.000 Medications:Active Meds + DC'd Last 24 HrsFentanyl Citrate (SUBLIMAZE) 0 .STK-MED ONE IV (DC) Midazolam HCl (VERSED) 0 .STK-MED ONE IV (DC) Dextrose/Water (DEXTROSE 10% IN WATER) 250 ML .STK-MED ONE IV (DC) Benzocaine/Butamben/Tetracaine HCl (CETACAINE) 0 .STK-MED ONE MM (DC) Fentanyl Citrate (SUBLIMAZE) 0 .STK-MED ONE IV (DC) Midazolam HCl (VERSED) 0 .STK-MED ONE IV (DC) Acetaminophen (TYLENOL) 0 .STK-MED ONE PO (DC) Benzocaine/Butamben/Tetracaine HCl (CETACAINE) 0 .STK-MED ONE MM (DC) Sodium Chloride (SODIUM CHLORIDE) 10 ML BID IV Benzocaine/Butamben/Tetracaine HCl (CETACAINE) 1 APPLIC ASDIR PRN MM (DC) Flumazenil (ROMAZICON) 0.2 MG ASDIR PRN IV (DC) Midazolam HCl (VERSED) 2 MG ASDIR PRN IV (DC) Naloxone HCl (NARCAN) 0.4 MG ASDIR PRN IV (DC) Vancomycin HCl (VANCOMYCIN HCL) 1,000 MG Q24H IV Sodium Chloride (SODIUM CHLORIDE 0.9%) 250 MLSodium Chloride (SODIUM CHLORIDE) 10 ML ASDIR PRN IV Cefepime HCl (MAXIPIME) 1 GM Q6H IV Sodium Chloride (SODIUM CHLORIDE) 10 MLMiscellaneous Information (VANCOMYCIN PHARMACY TO DOSE) 1 EACH ASDIR IV (CKD) Hydralazine HCl (APRESOLINE) 10 MG Q6H PRN PRN IV Insulin Glargine (Lantus/Semglee) 15 UNIT BEDTIME SUBQ Insulin Human Lispro (HUMALOG) 5 UNIT AC SUBQ Lidocaine (LIDODERM) 1 PATCH DAILY TOPICAL Hydromorphone HCl (DILAUDID) 1 MG Q3H PRN PRN IV Hydromorphone HCl (DILAUDID) 0.5 MG Q3H PRN PRN IV Lorazepam (ATIVAN) 1 MG ONCE PRN IV Sodium Chloride (SODIUM CHLORIDE) 0 ASDIR PRN IV Insulin Human Lispro (HUMALOG) 0 AC HS SUBQ Dextrose/Water (DEXTROSE 10% IN WATER) 125 ML ASDIR PRN IV (CKD) Dextrose/Water (DEXTROSE 10% IN WATER) 250 ML ASDIR PRN IV (CKD) Glucagon (GLUCAGON) 1 MG ASDIR PRN IM Dextrose/Water (Dextrose 10% 1,000 mL) 1,000 ML ASDIR IV Acetaminophen (TYLENOL) 650 MG Q6H PRN PRN PO Bisacodyl (DULCOLAX) 10 MG DAILY PRN PRN RECTAL Docusate Sodium (COLACE) 100 MG Q12H PRN PRN PO Ondansetron HCl (ZOFRAN) 4 MG Q6H PRN PRN IV Heparin Sodium (HEPARIN 5000 UNITS/ML) 5,000 UNIT Q8HR SUBQ Physical ExamGeneral appearance: alert, awake Diagnosis, Assessment PlanHospital course to date:Laboratory Tests: 09/02 09/02 09/02 09/02 09/02 1048 [...] 09/01 09/01 09/01 1704 1104 0852 0704 0345Chemistry POC Glucose (70 - 110 MG/DL) 127 H 118 H 145 H Total Creatine Kinase (46 - 171 79Units/L)Serology SARS-CoV-2 Ag (Rapid) (Negative) Negative 04/09 1916 Chemistry POC Glucose (70 - 110 MG/DL) 176 H Laboratory Tests: 08/31 08/31 08/31 08/31 08/30 1240 1203 0714 0642 1943Chemistry Sodium (134 - 147 mEq/L) 136 Potassium [...] H Calcium (8.0 - 10.5 mg/dL) 7.2 LHematology WBC (4.5 - 11.0 x10 3/uL) 8.7 [...] % (Auto) (14.0 - 32.0 %) 16.8 [place] % (Auto) (4.8 - 9.0 %) 4.8 Eos % (Auto) (0.3 - 3.7 %) 1.6 Baso % (Auto) (0.0 - 2.0 %) 0.2 Neut # (Auto) (2.0 - 7.6 x10 3/uL) 6.63 Lymph # (Auto) (1.0 - 3.8 x10 3/uL) 1.46 [place] # (Auto) (0.1 - 0.8 x10 3/uL) 0.42 Eos # (Auto) (0.0 - 0.2 x10 3/uL) 0.14 Baso # (Auto) (0.0 - 0.2 x10 3/uL) 0.02 Abs Immat Gran (auto) (0.00 - 0.03 0.03x10 3/uL) Add Manual Diff NO Immature Gran % (0.0 - 2.0 %) 0.3 Nucleated RBC % (0 - 0 %) 0.0 Nucleated RBCs # (Man) (0.0 - 0.1 0.00x10 3/uL) 08/30 1650 Chemistry POC Glucose (70 - 110 MG/DL) 109 Laboratory Tests: 08/30 08/30 08/30 08/30 08/29 165 1218 0803 0545 2011Chemistry Sodium (134 - 147 mEq/L) 136 Potassium [...] MG/DL) 4.6 Magnesium (1.80 - 2.40 mg/dL) 2.01Hematology WBC (4.5 - 11.0 x10 3/uL) 12.6 [...] (Auto) (14.0 - 32.0 %) 13.4 L [place] % (Auto) (4.8 - 9.0 %) 6.3 Eos % (Auto) (0.3 - 3.7 %) 0.8 Baso % (Auto) (0.0 - 2.0 %) 0.2 Neut # (Auto) (2.0 - 7.6 x10 3/uL) 9.96 H Lymph # (Auto) (1.0 - 3.8 x10 3/uL) 1.69 [place] # (Auto) (0.1 - 0.8 x10 3/uL) 0.79 Eos # (Auto) (0.0 - 0.2 x10 3/uL) 0.10 Baso # (Auto) (0.0 - 0.2 x10 3/uL) 0.02 Abs Immat Gran (auto) (0.00 - 0.03 0.08 Hx10 3/uL) Add Manual Diff NO Immature Gran % (0.0 - 2.0 %) 0.6 Nucleated RBC % (0 - 0 %) 0.0 Nucleated RBCs # (Man) (0.0 - 0.1 0.00x10 3/uL) Laboratory Tests: 08/29 08/29 08/29 08/29 [...] (Auto) (14.0 - 32.0 %) 10.0 L [place] % (Auto) (4.8 - 9.0 %) 5.6 Eos % (Auto) (0.3 - 3.7 %) 0.5 Baso % (Auto) (0.0 - 2.0 %) 0.1 Neut # (Auto) (2.0 - 7.6 x10 3/uL) 11.78 H Lymph # (Auto) (1.0 - 3.8 x10 3/uL) 1.42 [place] # (Auto) (0.1 - 0.8 x10 3/uL) 0.79 Eos # (Auto) (0.0 - 0.2 x10 3/uL) 0.07 Baso # (Auto) (0.0 - 0.2 x10 3/uL) 0.02 Abs Immat Gran (auto) (0.00 - 0.03 x10 3/uL) 0.08 H Add Manual Diff NO Immature Gran % (0.0 - 2.0 %) 0.6 Nucleated RBC % (0 - 0 %) 0.0 Nucleated RBCs # (Man) (0.0 - 0.1 x10 3/uL) 0.00 Laboratory Tests: 08/28 08/28 08/28 08/28 1709 1302 1218 0624 Chemistry POC Glucose (70 - 110 MG/DL) 103 206 H 185 H 180 H 0408/270 2049 1825 Chemistry Sodium (134 - 147 mEq/L) [...] (Auto) (14.0 - 32.0 %) 8.2 L [place] % (Auto) (4.8 - 9.0 %) 4.1 L Eos % (Auto) (0.3 - 3.7 %) 0.4 Baso % (Auto) (0.0 - 2.0 %) 0.1 Neut # (Auto) (2.0 - 7.6 x10 3/uL) 11.92 H Lymph # (Auto) (1.0 - 3.8 x10 3/uL) 1.13 [place] # (Auto) (0.1 - 0.8 x10 3/uL) 0.57 Eos # (Auto) (0.0 - 0.2 x10 3/uL) 0.05 Baso # (Auto) (0.0 - 0.2 x10 3/uL) 0.01 Abs Immat Gran (auto) (0.00 - 0.03 x10 3/uL) 0.07 H Add Manual Diff NO Immature Gran % (0.0 - 2.0 %) 0.5 Nucleated RBC % (0 - 0 %) 0.0 Nucleated RBCs # (Man) (0.0 - 0.1 x10 3/uL) 0.00 Microbiology: Date/Time Procedure - Status Source Growth 08/29 1347 Blood Culture - RECD BLOOD 08/28 134 Blood Culture - RECD BLOOD Recent Impressions:ULTRASOUND - DUP VEIN UNI/LTD 08/28 0857 Report Impression - Status: SIGNED Entered: 08/28/2022 0927 IMPRESSION: 1. No evidence of venous thrombosis involving left lower extremity. 2. Approximately 8 x 2 x 1.3 cm complex fluid collection along the left upper calf probably representing a small hematoma. Impression By: [email or web address] - Roger Parra M.D.RADIOLOGY - XR FLUOROSCOPY 0-60 MIN 08/28 1101 Report Impression - Status: SIGNED Entered: 08/28/2022 1120 IMPRESSION: Fluoroscopy dosage documentation. See also separate procedure notes. Impression By: [email or web address] - Bishop [...] (Auto) (14.0 - 32.0 %) 7.0 L [place] % (Auto) (4.8 - 9.0 %) 3.3 L Eos % (Auto) (0.3 - 3.7 %) 0.3 Baso % (Auto) (0.0 - 2.0 %) 0.1 Neut # (Auto) (2.0 - 7.6 x10 3/uL) 14.14 H Lymph # (Auto) (1.0 - 3.8 x10 3/uL) 1.11 [place] # (Auto) (0.1 - 0.8 x10 3/uL) 0.52 Eos # (Auto) (0.0 - 0.2 x10 3/uL) 0.04 Baso # (Auto) (0.0 - 0.2 x10 3/uL) 0.02 Abs Immat Gran (auto) (0.00 - 0.03 x10 3/uL) 0.10 H Add Manual Diff NO Immature Gran % (0.0 - 2.0 %) 0.6 Nucleated RBC % (0 - 0 %) 0.0 Nucleated RBCs # (Man) (0.0 - 0.1 x10 3/uL) 0.00 Microbiology: Date/Time Procedure - Status Source Growth [...] (Auto) (14.0 - 32.0 %) 7.4 L [place] % (Auto) (4.8 - 9.0 %) 3.9 L Eos % (Auto) (0.3 - 3.7 %) 0.5 Baso % (Auto) (0.0 - 2.0 %) 0.1 Neut # (Auto) (2.0 - 7.6 x10 3/uL) 15.49 H Lymph # (Auto) (1.0 - 3.8 x10 3/uL) 1.31 [place] # (Auto) (0.1 - 0.8 x10 3/uL) 0.69 Eos # (Auto) (0.0 - 0.2 x10 3/uL) 0.08 Baso # (Auto) (0.0 - 0.2 x10 3/uL) 0.01 Abs Immat Gran (auto) (0.00 - 0.03 x10 3/uL) 0.11 H Add Manual Diff NO Immature Gran % (0.0 - 2.0 %) 0.6 Nucleated RBC % (0 - 0 %) 0.0 Nucleated RBCs # (Man) (0.0 - 0.1 x10 3/uL) 0.00 Laboratory Tests: 08/25 08/25 08/25 08/25 1723 1111 1044 1044 Chemistry Potassium (3.4 - 5.0 mEq/L) 4.5 POC Glucose (70 - 110 MG/DL) 132 H 143 H Total Creatine Kinase (46 - 171 Units/L) 17 L Urines Urine Color (YEL/STRAW) YELLOW Urine Appearance (CLEAR) TURBID H Urine pH (5.0 - 7.0) 5.0 Ur Specific [place] (1.005 - 1.030) 1.012 Urine Protein (NEGATIVE) [...] (Auto) (14.0 - 32.0 %) 8.1 L [place] % (Auto) (4.8 - 9.0 %) 4.3 L Eos % (Auto) (0.3 - 3.7 %) 0.5 Baso % (Auto) (0.0 - 2.0 %) 0.1 Neut # (Auto) (2.0 - 7.6 x10 3/uL) 15.44 H Lymph # (Auto) (1.0 - 3.8 x10 3/uL) 1.45 [place] # (Auto) (0.1 - 0.8 x10 3/uL) 0.77 Eos # (Auto) (0.0 - 0.2 x10 3/uL) 0.09 Baso # (Auto) (0.0 - 0.2 x10 3/uL) 0.02 Abs Immat Gran (auto) (0.00 - 0.03 x10 3/uL) 0.13 H Add Manual Diff NO Immature Gran % (0.0 - 2.0 %) 0.7 Nucleated RBC % (0 - 0 %) 0.0 Nucleated RBCs # (Man) (0.0 - 0.1 x10 3/uL) 0.00 Microbiology: Date/Time Procedure - Status Source Growth 08/26 1043 Urine Culture - WKST URINE 08/26 1043 Blood Culture - RECD BLOOD 08/26 1043 Blood Culture - RECD BLOOD Laboratory Tests: 08/20 08/20 08/20 08/20 08/20 1107 0756 0647 0554 0454Chemistry Sodium (134 - 147 mEq/L) 137 Potassium [...] L Albumin (3.4 - 5.0 g/dL) 2.00 LHematology WBC (4.5 - 11.0 x10 3/uL) 22.8 [...] (Auto) (14.0 - 32.0 %) 4.8 L [place] % (Auto) (4.8 - 9.0 %) 2.9 L Eos % (Auto) (0.3 - 3.7 %) 0.0 L Baso % (Auto) (0.0 - 2.0 %) 0.2 Neut # (Auto) (2.0 - 7.6 x10 3/uL) 19.90 H Lymph # (Auto) (1.0 - 3.8 x10 3/uL) 1.10 [place] # (Auto) (0.1 - 0.8 x10 3/uL) 0.66 Eos # (Auto) (0.0 - 0.2 x10 3/uL) 0.00 Baso # (Auto) (0.0 - 0.2 x10 3/uL) 0.04 Abs Immat Gran (auto) (0.00 - 0.03 1.12 Hx10 3/uL) Add Manual Diff NO Immature Gran % (0.0 - 2.0 %) 4.9 H Nucleated RBC % (0 - 0 %) 0.0 Nucleated RBCs # (Man) (0.0 - 0.1 0.00x10 3/uL) 08/20 08/20 08/19 08/19 08/19 0259 [...] - 50.7 %) 21.8 L 08/19 172 1652Chemistry Sodium (134 - 147 mEq/L) 133 L [...] 2.03 Albumin (3.4 - 5.0 g/dL) 1.40 LHematology WBC (4.5 - 11.0 x10 3/uL) 20.3 [...] (Auto) (14.0 - 32.0 %) 3.8 L [place] % (Auto) (4.8 - 9.0 %) 3.7 L Eos % (Auto) (0.3 - 3.7 %) 0.0 L Baso % (Auto) (0.0 - 2.0 %) 0.3 Neut # (Auto) (2.0 - 7.6 x10 3/uL) 17.97 H Lymph # (Auto) (1.0 - 3.8 x10 3/uL) 0.76 L [place] # (Auto) (0.1 - 0.8 x10 3/uL) 0.74 Eos # (Auto) (0.0 - 0.2 x10 3/uL) 0.00 Baso # (Auto) (0.0 - 0.2 x10 3/uL) 0.07 Abs Immat Gran (auto) (0.00 - 0.03 0.71 Hx10 3/uL) Add Manual Diff NO Immature Gran % (0.0 - 2.0 %) 3.5 H Nucleated RBC % (0 - 0 %) 0.0 Nucleated RBCs # (Man) (0.0 - 0.1 0.00x10 3/uL) 08/19 08/19 1622 1601 Chemistry POC Glucose (70 - 110 MG/DL) 232 H Urines Urine Color (YEL/STRAW) YELLOW Urine Appearance (CLEAR) SL CLOUDY Urine pH (5.0 - 7.0) 5.0 Ur Specific [place] (1.005 - 1.030) 1.013 Urine Protein (NEGATIVE) [...] Date/Time Procedure - Status Source Growth 08/20 5258 Blood Culture - ORD BLOOD 08/20 145 [...] (Auto) (14.0 - 32.0 %) 4.3 L [place] % (Auto) (4.8 - 9.0 %) 3.1 L Eos % (Auto) (0.3 - 3.7 %) 0.0 L Baso % (Auto) (0.0 - 2.0 %) 0.3 Neut # (Auto) (2.0 - 7.6 x10 3/uL) 19.17 H Lymph # (Auto) (1.0 - 3.8 x10 3/uL) 0.91 L [place] # (Auto) (0.1 - 0.8 x10 3/uL) 0.67 Eos # (Auto) (0.0 - 0.2 x10 3/uL) 0.01 Baso # (Auto) (0.0 - 0.2 x10 3/uL) 0.07 Abs Immat Gran (auto) (0.00 - 0.03 x10 3/uL) 0.51 H Add Manual Diff NO Immature Gran % (0.0 - 2.0 %) 2.4 H Nucleated RBC % (0 - 0 %) 0.0 Nucleated RBCs # (Man) (0.0 - 0.1 x10 3/uL) 0.00 08/18 08/18 08/18 08/18 2246 2157 1854 [...] 121 Wound Culture - RES ABSCESS 08/19 1209 Anaerobic Culture - RES ABSCESS 08/19 1209 Gram Stain - RES ABSCESS Recent Impressions:ULTRASOUND - DUP LE ART UNI/LTD 08/19 0950 Report Impression - Status: SIGNED Entered: 08/19/2022 1056 IMPRESSION: No sonographic evidence for flow-limiting stenosis in the right lower extremity arterial system. Impression By: [email or web address] - Abraham Ross M.D. Laboratory Tests: 08/18 08/18 08/18 08/18 08/18 1430 1430 1404 1309 1203Chemistry Sodium (134 - 147 mEq/L) 131 L [...] 20.0 L Cholesterol/HDL Ratio (3.43 - 4.97 4.00RATIO) TSH (0.42 - 5.47) 0.96 Free T4 (0.77 - 1.61 ng/dL) 0.7 L 08/18 08/18 08/18 08/18 08/18 1107 1004 0900 0823 0549 Chemistry POC Glucose (70 - 110 MG/DL) 223 H 304 H 405 H 449 H Hemoglobin A1c (4.8 - 6.0 %A1C) 13.4 H 08/18 08/18 08/18 0549 0305 0207Blood Gas Puncture Site R Radial O2 Saturation [...] O2 Delivery Device Room Air FiO2 (%) 21Chemistry Sodium (134 - 147 mEq/L) 121 *L [...] 2.34 Albumin (3.4 - 5.0 g/dL) 1.60 LSerology Influenza Type A (PCR) (Negative) Negative Influenza Type B (PCR) (Negative) NegativeToxicology Acetone, Quant (Neg - <20 mg/dL) Large [...] 206 Streptococcus Culture - COMP THROAT 08/18 020 Blood Culture - RES BLOOD 08/18 020 Blood Culture Gram Stain - RES BLOOD 08/18 020 Blood Culture - RES BLOOD 08/18 020 Blood Culture Gram Stain - RES BLOOD Recent Impressions:RADIOLOGY - XR CHEST 2 V 08/18 0201 Report Impression - Status: SIGNED Entered: 08/18/2022 0317 IMPRESSION: Ill-defined somewhat nodular opacity measuring 3.2 cm laterally in the right mid lung suspicious for rounded pneumonia given provided history, but underlying neoplasm can not be excluded. Followup radiographs are recommended after appropriate treatment in order to document complete resolution and exclude an underlying process or neoplasm. Impression By: [id number] Cr Adams M.D.RADIOLOGY - XR FOOT 3 + V RT 08/18 0238 Report Impression - Status: SIGNED Entered: 08/18/2022 0358 IMPRESSION: No acute osseous findings. No convincing evidence for osteomyelitis. MRI is more sensitive for detecting osteomyelitis.Impression By: Ankur Ladd M.D.CAT SCAN - CT ABD PELVIS W/CONT 08/18 0339 Report Impression - Status: SIGNED Entered: 08/18/2022 0546 IMPRESSION: 3.3 cm hypodensity in the left posterior prostate or seminal vesicle. This could represent an abscess. Contrast-enhanced MRI of the pelvis would be helpful for further evaluation.No acute intra-abdominal findings otherwise.Impression By: Ankur Ladd M.D.CAT SCAN - CT LOWER EXTRM W/O C RT 08/18 0645 Report Impression - Status: SIGNED Entered: 08/18/2022 0827 IMPRESSION: Extensive soft tissue edema with mottled gas in the subcutaneous and intramuscular compartments of the foot compatible with gas-forming infection. Disease extends into the visualized distal leg. Impression By: Jamel Dorantes M.D. 1. 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 DKA3. Cellulitis and gangrene of the right foot. Status post BKA4. Sepsis5. Altered mental status6. High LFTsBlood sugar 88-162 mg/dL.HbA1c 13.4%Adjust insulin dose.Wound care and IV antibiotics.S/P wound debridement. at 1513 RPT #:[id number] OF REPORTPRProgress [id number]:11:00G.[id number] able for patient yuhgSEVFKKECJIPIDU6609-44-52J48:13:24 [facility] 2022-09-02 14:20:00 [id number] xxnwk+E1JwMtlzywyEEU15Uz0+hPe Xm6UA2EVj+XOnAJHaMlXRZfadby7064-74-01O64:20:00 [facility] HospitalHospitalist Progress NoteREPORT#:[id number] REPORT STATUS: SignedDATE:09/02/22 TIME: 1420 PATIENT: KARMA ROWLAND UNIT #: [id number]#: [id number] [address] [birth year] AGE: 56 SEX: M ATTEND: Wilbert Ramires [facility] AUTHOR: Tessie Junior * ALL edits or amendments must be made on the electronic/computer document * SubjectiveChief complaint:AMS and right foot infection. s/p extensivedebridement. s/p BKA. pain controlled Review of SystemsAll systems rev neg: except as noted Objective GeneralVS/I O:Vital Signs: Date Time Temp Pulse Resp B/P B/P Pulse O2 O2 Flow FiO2 Mean Ox Delivery Rate 09/02 1244 79 18 149/70 100 Nasal 2 cannula 09/02 0904 81 152/70 95 09/02 0520 97.5 79 17 132/65 0.0 98 Room air 09/02 0500 80 131/63 90 97 09/02 0400 81 10 128/61 88 97 09/02 0300 84 129/64 90 94 09/02 0200 83 125/58 84 89 09/02 0100 82 10 151/70 100 95 04 0000 88 11 147/73 104 94 09/01 2340 98.2 83 19 127/69 0.0 95 Room air 09/01 2200 84 133/65 90 100 09/01 2100 96 18 168/80 115 96 09/01 2001 98.6 85 15 141/70 93 98 09/02 1999 85 20 135/64 92 96 09/01 1900 85 20 164/75 108 09/01 1800 89 15 171/82 118 09/01 1745 86 14 156/75 108 09/01 1500 85 12 158/76 109 98 24 hour I O ending at 0700: 09/02 0700 09/01 1900 Intake Total 240 Output Total 750 1325 Balance -750 -1085 Intake, Oral 240 Output, Urine 750 1325 PATIENT WEIGHT: Weight (lb): 154Weight (oz): 5.18Weight (kg): 70.000 Medications:Active Meds + DC'd Last 24 HrsFentanyl Citrate (SUBLIMAZE) 0 .STK-MED ONE IV (DC) Midazolam HCl (VERSED) 0 .STK-MED ONE IV (DC) Dextrose/Water (DEXTROSE 10% IN WATER) 250 ML .STK-MED ONE IV (DC) Benzocaine/Butamben/Tetracaine HCl (CETACAINE) 0 .STK-MED ONE MM (DC) Fentanyl Citrate (SUBLIMAZE) 0 .STK-MED ONE IV (DC) Midazolam HCl (VERSED) 0 .STK-MED ONE IV (DC) Acetaminophen (TYLENOL) 0 .STK-MED ONE PO (DC) Benzocaine/Butamben/Tetracaine HCl (CETACAINE) 0 .STK-MED ONE MM (DC) Sodium Chloride (SODIUM CHLORIDE) 10 ML BID IV Benzocaine/Butamben/Tetracaine HCl (CETACAINE) 1 APPLIC ASDIR PRN MM (CKD) Flumazenil (ROMAZICON) 0.2 MG ASDIR PRN IV Midazolam HCl (VERSED) 2 MG ASDIR PRN IV Naloxone HCl (NARCAN) 0.4 MG ASDIR PRN IV Vancomycin HCl (VANCOMYCIN HCL) 1,000 MG Q24H IV Sodium Chloride (SODIUM CHLORIDE 0.9%) 250 MLSodium Chloride (SODIUM CHLORIDE) 10 ML ASDIR PRN IV Cefepime HCl (MAXIPIME) 1 GM Q6H IV Sodium Chloride (SODIUM CHLORIDE) 10 MLMiscellaneous Information (VANCOMYCIN PHARMACY TO DOSE) 1 EACH ASDIR IV (CKD) Hydralazine HCl (APRESOLINE) 10 MG Q6H PRN PRN IV Insulin Glargine (Lantus/Semglee) 15 UNIT BEDTIME SUBQ Insulin Human Lispro (HUMALOG) 5 UNIT AC SUBQ Lidocaine (LIDODERM) 1 PATCH DAILY TOPICAL Hydromorphone HCl (DILAUDID) 1 MG Q3H PRN PRN IV Hydromorphone HCl (DILAUDID) 0.5 MG Q3H PRN PRN IV Lorazepam (ATIVAN) 1 MG ONCE PRN IV Sodium Chloride (SODIUM CHLORIDE) 0 ASDIR PRN IV Insulin Human Lispro (HUMALOG) 0 AC HS SUBQ Dextrose/Water (DEXTROSE 10% IN WATER) 125 ML ASDIR PRN IV (CKD) Dextrose/Water (DEXTROSE 10% IN WATER) 250 ML ASDIR PRN IV (CKD) Glucagon (GLUCAGON) 1 MG ASDIR PRN IM Dextrose/Water (Dextrose 10% 1,000 mL) 1,000 ML ASDIR IV Acetaminophen (TYLENOL) 650 MG Q6H PRN PRN PO Bisacodyl (DULCOLAX) 10 MG DAILY PRN PRN RECTAL Docusate Sodium (COLACE) 100 MG Q12H PRN PRN PO Ondansetron HCl (ZOFRAN) 4 MG Q6H PRN PRN IV Heparin Sodium (HEPARIN 5000 UNITS/ML) 5,000 UNIT Q8HR SUBQ Physical ExamHead/Eyes: normocephalicENT: moist mucosal membranesNeck: no JVDCardiovascular: regular rate rhythm, no heaveRespiratory: aerating well, clear to auscultation, symmetric expansion, no distressAbdomen: non-tender, normal bowel sounds, soft, no distentionGenitourinary: no bladder distentionExtremities: R foot in dressingNeuro/DIRECTOR OPERATING ROOM: alert, oriented X 3, 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 Considered stroke alert: noSkin: no rashPsychiatry: normal affect, normal judgment/insight, normal mood ResultsFindings/Data:Laboratory Tests 09/02 09/02 09/02 09/02 09/02 1048 [...] Diagnosis, Assessment Plan Free Text DxA P NotesFree text DxA P notes:DKADM 2, poorly controlledsevere gas gangrene, right foot/necrotizing fascitis - s/p BKAMRSA bacteremiaAKIsevere hyponatremia likely due to combination of severe hyperglycemia and dehydration from DKAsepsis due to foot infectionDM neuropathyHTNanemia, acute due to blood lossleft calf hematomaprostatic abscess with Citrobacter and enterococcus Plans: - admit to ICU - continue [...] planning for I D today. Surgery on standby if needed to further debride his lower leg vs amputation. - WBC improving - will type and cross for blood and transfuse if less than 7 gms - d.w at [...] wean off insulin drip. Subq insulin and sliding scale. endo following - pain controlled - will likely need wound vac and alf IV antibiotic therapy - d/w at bedside - PT/OT 08/21/2022 - continue IV antibitoics - wound care with pulse lavage. will likely need wound vac at some point - off [...] transfuse blood for anemia. no overt blood loss - continue IV antibiotics - mobilize - pulse lavage to wound. ? wound vac - continue to monitor blood sugars - floor transfer - d/w 08/24/2022 - follow hgb and transfuse as needed - IV antibiotics - anesthesia consult for MRI - blood sugars ok - pulse lavage - await podiatry eval for wound care - ? wound vac - d.w at bedside 08/25/22Continue abx (Dapto and Teflaro) as per IDUpdated Urology on MRI results, Dr. Du will review images and discuss with family for possible prostate/seminal vesicle abscessCont wound care as per Podiatry, may have debridement today BP and BS well controlled K+ high, repeat levelHgb 7.3 stableDiscussed with at bedside 08/26/2022 - hgb low. will transfuse 2 units - d.w Dr. Pedersen - patient has lost so much tissues in his foot that his potential for wound closure and usability of his foot is poor. Recommendations made to proceed with BKA - continue to monitor blood sugars - IV antibitoics - wound care - urology planning for aspiration of prostatic cyst seen on MRI. PSA normal - OOB 08/27/22s/p transfusion planned for BKA IV antibiotics Wound care DM - managed with insulin DVT prophylaxis 08/28/2022 - noted left leg swelling and pain - patient on Heparin SQ for VTE. will order stat venous US - planning for right BKA today - continue IV antibiotics per ID - follow blood sugars closely - will need PT/OT and possible rehab post surgery - d/w at bedside 08/29/2022 - US [...] and transfuse if hgb less than 7 gms - Heparin SQ for VTE 08/30/22 s/p BKA. doing well IV antibiotics PT/ OT possible rehab monitor hb transfer to floor / IMCU 08/31/2022 S/p BKA doing okay pain is controlledIV antibiotic therapyPT OTNoted hemoglobin low at 6.8 will transfuse monitor PRBCPotassium was high as well give KayexalateRecheck lab work later today discussed with nurse.If stable overall in the next 24 hours can be transferred/downgraded to regular floor.DM control. 09/01/22VSS on RAlabs pending- hyperkalemia yesterday -s/p kayexalate M7Rvolevnl with Vanc and Cefepine per IDNeeds JIMENA prior to discharge Cardiology on board. Approved to rehab, can transfer after JIMENA and BMP 09/02/22TEE today to r/o endocarditis, awaiting results- if (+), will need abx for 6 weeks endocarditisContinue with Vanc and Cefepine per ID, - through 09/24/22PICC line pendingWound care as directedGlycemia control- Endo on boardrepeat AM labsC/w PT/OTplan to transfer [facility] at 2269 RPT #:[id number] OF REPORTPRProgress [id number]:20:00G.[id number] able for patient [id number]:59:52 HCACL 2022-09-02 12:26:00 [id number] [id number] jLDOtuBl7ukzeQOaiQTSDbGydn33928-73-96B19:26:00 [facility] ([facility])Podiatry Progress NoteREPORT#:[id number] REPORT STATUS: SignedDATE:09/02/22 TIME: 1226 PATIENT: KARMA ROWLAND UNIT #: [id number]#: [id number] [address] [birth year] AGE: 56 SEX: M ATTEND: Wilbert Ramires MDADM AUTHOR: Liam Pedersen DPM * ALL edits or amendments must be made on the electronic/computer document * SubjectiveChief complaint:seen at bedside,. family memebers next to him denies having any pain foot covered and protected and offloaded drainage noted serosang. increased warmthPatient reports: no cough, no dizziness, no fever, no heartburnComments:also discussed with dr. Leroy pt getting EEG today Objective GeneralVS:Last Documented: Result Date Time Pulse Ox 95 09/02 09 B/P 152/70 09/02 09 Pulse 81 09/02 09 B/P Mean 0.0 09/02 0520 O2 Delivery Room air 09/02 05 Temp 36.4 09/02 0520 Resp 17 09/02 05 O2 Flow Rate 7 08/28 1222 PATIENT WEIGHT: Weight (lb): 154Weight (oz): 5.18Weight (kg): 70.000 Medications:Active Meds + DC'd Last 24 HrsFentanyl Citrate (SUBLIMAZE) 0 .STK-MED ONE .ROUTE (DC) Midazolam HCl (VERSED) 0 .STK-MED ONE .ROUTE (DC) Dextrose/Water (DEXTROSE 10% IN WATER) 250 ML .STK-MED ONE IV (DC) Benzocaine/Butamben/Tetracaine HCl (CETACAINE) 0 .STK-MED ONE MM (DC) Fentanyl Citrate (SUBLIMAZE) 0 .STK-MED ONE .ROUTE (DC) Midazolam HCl (VERSED) 0 .STK-MED ONE .ROUTE (DC) Acetaminophen (TYLENOL) 0 .STK-MED ONE PO (DC) Benzocaine/Butamben/Tetracaine HCl (CETACAINE) 0 .STK-MED ONE MM (DC) Sodium Chloride (SODIUM CHLORIDE) 10 ML BID IV Benzocaine/Butamben/Tetracaine HCl (CETACAINE) 1 APPLIC ASDIR PRN MM (CKD) Flumazenil (ROMAZICON) 0.2 MG ASDIR PRN IV Midazolam HCl (VERSED) 2 MG ASDIR PRN IV Naloxone HCl (NARCAN) 0.4 MG ASDIR PRN IV Vancomycin HCl (VANCOMYCIN HCL) 1,000 MG Q24H IV Sodium Chloride (SODIUM CHLORIDE 0.9%) 250 MLSodium Chloride (SODIUM CHLORIDE) 10 ML ASDIR PRN IV Cefepime HCl (MAXIPIME) 1 GM Q6H IV Sodium Chloride (SODIUM CHLORIDE) 10 MLMiscellaneous Information (VANCOMYCIN PHARMACY TO DOSE) 1 EACH ASDIR IV (CKD) Hydralazine HCl (APRESOLINE) 10 MG Q6H PRN PRN IV Insulin Glargine (Lantus/Semglee) 15 UNIT BEDTIME SUBQ Insulin Human Lispro (HUMALOG) 5 UNIT AC SUBQ Lidocaine (LIDODERM) 1 PATCH DAILY TOPICAL Hydromorphone HCl (DILAUDID) 1 MG Q3H PRN PRN IV Hydromorphone HCl (DILAUDID) 0.5 MG Q3H PRN PRN IV Lorazepam (ATIVAN) 1 MG ONCE PRN IV Sodium Chloride (SODIUM CHLORIDE) 0 ASDIR PRN IV Insulin Human Lispro (HUMALOG) 0 AC HS SUBQ Dextrose/Water (DEXTROSE 10% IN WATER) 125 ML ASDIR PRN IV (CKD) Dextrose/Water (DEXTROSE 10% IN WATER) 250 ML ASDIR PRN IV (CKD) Glucagon (GLUCAGON) 1 MG ASDIR PRN IM Dextrose/Water (Dextrose 10% 1,000 mL) 1,000 ML ASDIR IV Acetaminophen (TYLENOL) 650 MG Q6H PRN PRN PO Bisacodyl (DULCOLAX) 10 MG DAILY PRN PRN RECTAL Docusate Sodium (COLACE) 100 MG Q12H PRN PRN PO Ondansetron HCl (ZOFRAN) 4 MG Q6H PRN PRN IV Heparin Sodium (HEPARIN 5000 UNITS/ML) 5,000 UNIT Q8HR SUBQ I O:24 hour I O ending at 0700: 04/11 0700 09/01 1900 Intake Total 240 Output Total 750 1325 Balance -750 -1085 Intake, Oral 240 Output, Urine 750 1325 Dietitian nutrition assessmentThe data set between the solid lines has been imported from the dietitian's assessment. BMI Calculated: 24.9Nutrition related diagnosis: OverweightNutrition diagnosis details: BMI 25-29.9Nutrition problem: Increased nutrient needsNutrition etiology: metabolic demand of wound , healingNutrition signs and symptoms: recent BKA with need for , arginine and glutamineNutrition prescription: 1) Recommend Cardiac ADA diet with 5 CHO/meal. 2) Supplement with Chinedu BID.Dietitian name: Judith Smith, DIETAssessment completed: 08/28/22 Physical ExamWound/incision: Location:Right foot s/p BKA DP and PT pulses very weak left foot. Sensation is greatly decreased on the left foot. Left foot has no ulcers but has OA changes at ankle with some chronic edema.LE vascular pulse assess:Nonpalpable R posterior tibialis, Nonpalpable L posterior tibialis, Nonpalpable R dorsalis pedis, Nonpalpable L dorsalis pedis Considered stroke alert: no Diagnosis, Assessment PlanFree Text A P:Gas gangrene right foot s/p BKADiabetes with peripheral neuropathyMinimal peripheral vascular diseeseSepsisDKAEdema and arthritis left ankle IV antibioticsMonitor leukocytosisNIAS: minimal PVD right08/19 OR culture: MRSAblood cultures: MRSAdc lavageace wrap compression left anklevenous u/s left no dvt at 7951 RPT #:[id number] OF REPORTPRProgress [id number]:26:00G.[id number] able for patient qtxxOMKMMTRFDYXXIU0647-04-26S73:10:14 [facility] 2022-09-02 10:35:00 [id number] UzMSsQizsUZjcY4krHlsyB6QYFNT9 H0msHuBBwk9PUGl4rzK0jwAwLtx1238-62-49C41:35:00 [facility] ([facility]ITALCard[facility] Progress NoteREPORT#:[id number] REPORT STATUS: SignedDATE:09/02/22 TIME: 1035 PATIENT: KARMA ROWLAND UNIT #: [id number]#: [id number] [address] [birth year] AGE: 56 SEX: M ATTEND: Wilbert Ramires [facility] AUTHOR: Rohit Benitez RESEARCH MANUFACTURING OPERATOR * ALL edits or amendments must be made on the electronic/computer document * Rohit Benitez 09/02/22 1035:SubjectiveChief complaint:foot infection Free Text Subj NotesFree Text Subj Notes:Patient seen and evaluated. Plan for JIMENA today. No new cardiac complaint. Objective GeneralVS/I O:24 hour I O ending at 0700: 09/02 0700 09/01 1900 Intake Total 240 Output Total 750 1325 Balance -750 -1085 Intake, Oral 240 Output, Urine 750 1325 Vital Signs: Date Time Temp Pulse Resp B/P B/P Pulse O2 O2 Flow FiO2 Mean Ox Delivery Rate 09/02 0904 [...] 2001 98.6 85 15 141/70 93 98 09/02 1999 85 20 135/64 92 96 09/01 1900 85 20 164/75 108 09/01 1800 89 15 171/82 118 09/01 1745 86 14 156/75 108 09/01 1500 85 12 158/76 109 98 09/01 1407 84 11 170/81 116 99 09/01 1300 85 16 99 09/01 1200 84 99 09/01 1105 97.9 86 15 141/67 0.0 99 09/01 1100 86 141/67 97 98 PATIENT WEIGHT: Weight (lb): 154Weight (oz): 5.18Weight (kg): 70.000 Medications:Active Meds + DC'd Last 24 HrsDextrose/Water (DEXTROSE 10% IN WATER) 250 ML .STK-MED ONE IV (DC) Benzocaine/Butamben/Tetracaine HCl (CETACAINE) 0 .STK-MED ONE MM (DC) Fentanyl Citrate (SUBLIMAZE) 0 .STK-MED ONE .ROUTE (DC) Midazolam HCl (VERSED) 0 .STK-MED ONE .ROUTE (DC) Acetaminophen (TYLENOL) 0 .STK-MED ONE PO (DC) Benzocaine/Butamben/Tetracaine HCl (CETACAINE) 0 .STK-MED ONE MM (DC) Sodium Chloride (SODIUM CHLORIDE) 10 ML BID IV Benzocaine/Butamben/Tetracaine HCl (CETACAINE) 1 APPLIC ASDIR PRN MM (CKD) Flumazenil (ROMAZICON) 0.2 MG ASDIR PRN IV Midazolam HCl (VERSED) 2 MG ASDIR PRN IV Naloxone HCl (NARCAN) 0.4 MG ASDIR PRN IV Vancomycin HCl (VANCOMYCIN HCL) 1,000 MG Q24H IV Sodium Chloride (SODIUM CHLORIDE 0.9%) 250 MLLidocaine HCl (LIDOCAINE 1% 5ML) 5 ML ONCE ONE LOCAL (DC) Sodium Chloride (SODIUM CHLORIDE) 10 ML ASDIR PRN IV Cefepime HCl (MAXIPIME) 1 GM Q6H IV Sodium Chloride (SODIUM CHLORIDE) 10 MLMiscellaneous Information (VANCOMYCIN PHARMACY TO DOSE) 1 EACH ASDIR IV (CKD) Hydralazine HCl (APRESOLINE) 10 MG Q6H PRN PRN IV Insulin Glargine (Lantus/Semglee) 15 UNIT BEDTIME SUBQ Insulin Human Lispro (HUMALOG) 5 UNIT AC SUBQ Lidocaine (LIDODERM) 1 PATCH DAILY TOPICAL Hydromorphone HCl (DILAUDID) 1 MG Q3H PRN PRN IV Hydromorphone HCl (DILAUDID) 0.5 MG Q3H PRN PRN IV Lorazepam (ATIVAN) 1 MG ONCE PRN IV Sodium Chloride (SODIUM CHLORIDE) 0 ASDIR PRN IV Insulin Human Lispro (HUMALOG) 0 AC HS SUBQ Dextrose/Water (DEXTROSE 10% IN WATER) 125 ML ASDIR PRN IV (CKD) Dextrose/Water (DEXTROSE 10% IN WATER) 250 ML ASDIR PRN IV (CKD) Glucagon (GLUCAGON) 1 MG ASDIR PRN IM Dextrose/Water (Dextrose 10% 1,000 mL) 1,000 ML ASDIR IV Acetaminophen (TYLENOL) 650 MG Q6H PRN PRN PO Bisacodyl (DULCOLAX) 10 MG DAILY PRN PRN RECTAL Docusate Sodium (COLACE) 100 MG Q12H PRN PRN PO Ondansetron HCl (ZOFRAN) 4 MG Q6H PRN PRN IV Heparin Sodium (HEPARIN 5000 UNITS/ML) 5,000 UNIT Q8HR SUBQ Physical ExamGeneral appearance: alert, awake, orientedNeck: no bruit/NL carotids, no JVDCardiovascular: CV assessment: abnormal S1/S2, regular rate and rhythm, no ectopyRespiratory: clear to auscultation, no distressLower extremity: LE assessment: edemaNeuro/DIRECTOR OPERATING ROOM: alert, oriented X 3 Considered stroke alert: noWound/incision: Location:right bkaPsychiatry: normal affect, normal judgment/insight, normal mood ResultsFindings/Data:Laboratory Tests 09/02 09/02 09/02 09/02 09/01 1011 [...] Diagnosis, Assessment Plan Free Text DxA P NotesFree Text DxA P Notes:Impression: 1. Preop eval/cardiac clearance2. Infected right foot gas gangrene3. DKA4. Sepsis5. Hypertension 6. Anemia Recommendation: Patient presented for evaluation of altered mental status, weakness and elevatedblood sugar. Diagnosed with DKA and sepsis. 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 Known cardiac history of hypertension and hyperlipidemia. Denies prior history of CAD, CHF or arrhythmia. EKG abnormal, NSR with anterior infarct. Vital signs stable. No prior cardiac work-up. -Check echocardiogram-Monitor telemetry for arrhythmia-Monitor blood pressure trend-Wound care and IV antibiotic therapy-Supportive care 08/19: Patient doing better postop, blood pressure control, currently in sinus rhythm, lower extremity artery Doppler negative for any significant PAD, continue current management from primary team and podiatry service, continue monitor on telemetry for arrhythmia postop, supportive care, discussed with patient and family as well as RN, will follow. 08/21: Patient overall doing well, awake and alert today. Blood pressure well controlled. Currently in sinus rhythm to sinus tachycardia, will continue to monitor. Echocardiogram shows LVEF of 55 to 69%, no regional wall motion abnormalities, grade 1 diastolic dysfunction, and mildly dilated LA. continue antibiotic therapy and wound care. Supportive care. Plan of care discussed with patient, RN and Dr. Parham. 08/22: No Significant changes from cardiac standpoint. Vital signs stable. Telemetry monitoring reviewed, sinus rhythm to sinus tachycardia. We will continue monitor, sinus tachycardia likely related to underlying infection. Continue wound care and antibiotic therapy. Supportive care. Plan of care discussed with patient, RN and Dr. Parham. 08/23: Stable cardiac status. Blood pressure and heart rate well controlled. Continue monitor telemetry. Continue wound care. Plan to transfer to floor. Supportive care. Plan of care discussed with patient, RN and Dr. Parham. 08/24: Patient overall doing well, remains stable from cardiac standpoint. Blood pressure and heart rate well controlled. No new events noted on telemetrymonitoring. Remains in sinus rhythm by physical examination. Continue wound care. Supportive care. Plan of care discussed with patient, RN and Dr. Parham. 08/25: Remain stable from cardiac standpoint. Blood pressure well controlled. Currently in sinus rhythm by physical examination. Possible plan for another wound debridement today. Pain management and supportive care. Plan of care discussed with patient, RN and Dr. Parham. 08/26: Patient remains in sinus rhythm. Blood pressure well controlled. Plan for aspiration of prostatic cyst today. Plan for right BKA on . We will continue monitor patient postoperatively. Continue antibiotic therapy. Supportive care. Plan of care discussed with patient, RN and Dr. Parham. 08/27: Patient doing well status post aspiration of prostatic abscess and TURP. Currently on continuous bladder irrigation. Hemodynamically stable. Blood pressure and heart rate well controlled. Remains in normal sinus rhythm. Plan for right BKA tomorrow. Cleared from cardiac standpoint to proceed with plannedsurgery. Supportive care. Plan of care discussed with patient, RN and Dr. Parham. 08/28: Stable cardiac status. Plan for right BKA today. Continue antibiotic therapy and wound care. Will monitor patient postoperatively for arrhythmia. Continue monitor telemetry. Pain management and supportive care. Plan of care discussed with RN and Dr. Parham. 08/29: Patient doing well, blood pressure controlled, s/p right BKA, stable cardiac status, continue current management, will follow. 09/01: Patient with ongoing bacteremia, ID recommend JIMENA to rule out endocarditis. Continue antibiotic therapy and wound care. Blood pressure and heart rate well controlled. Remains in normal sinus rhythm. Plan for JIMENA tomorrow, further recommendation will be based on findings. Supportive care. Plan of care discussed with patient, RN and Dr. Parham. 09/02: Plan for JIMENA today to rule out endocarditis. Vital signs stable. Currently in sinus rhythm by physical examination. Discharge planning for rehab. Supportive care. Plan of care discussed with patient, RN and Dr. Parham. Napoleon Parham 09/06/22 1631:Diagnosis, Assessment PlanAdditional comments:Patient was seen and examined at bedside, agree with above assessment and plan as documented by nurse practitioner with modifications. JMIENA negative for vegetation. Discussed with primary team and ID service. at 2023 at 1637 RPT #:[id number] OF REPORTPRProgress [id number]:35:00G.[id number] able for patient xuzdRLFIPYHEDBAJVW2189-21-95I70:23:53 [facility] 2022-09-02 06:18:00 [id number] NhsulH9B/zCy9F/n8i54VDFDAAKSb XC71JCfH0G+PfQWg4W6n60X75dA1209-26-16R68:18:00 [facility] ([facility])Rehab Progress NoteREPORT#:[id number] REPORT STATUS: SignedDATE:09/02/22 TIME: 617 PATIENT: KARMA ROWLAND UNIT #: [id number]#: [id number] [address] [birth year] AGE: 56 SEX: M ATTEND: Wilbert Ramires [facility] AUTHOR: Mj Vences MD * ALL edits or amendments must be made on the electronic/computer document * SubjectiveChief complaint:Rehab bgxoiq-js-HRFCWzueg wellIn bed, NADPatient going for TEEUrine is clearWife in roomDenies DICKENS/N/V/D/CP14 systems reviewed and neg. except that above. Objective GeneralVS:Vital Signs: Date Time Temp Pulse Resp B/P B/P Pulse O2 O2 Flow FiO2 Mean Ox Delivery Rate 09/02 0520 97.5 79 17 132/65 0.0 98 Room air 09/02 0500 80 131/63 90 97 09/02 0400 81 10 128/61 88 97 09/02 0300 84 129/64 90 94 09/02 0200 83 125/58 84 89 09/02 0100 82 10 151/70 100 95 09/02 0000 88 11 147/73 104 94 04/10 2340 98.2 83 19 127/69 0.0 95 Room air 04/10 2200 84 133/65 90 100 04/10 2100 96 18 168/80 115 96 04/10 2001 98.6 85 15 141/70 93 98 04/10 [...] 132/64 92 98 04/10 0826 80 94 04/10 0800 84 12 153/72 104 99 04/10 0708 98.4 83 12 129/63 0.0 99 04/10 0700 84 15 129/63 90 98 PATIENT WEIGHT: Weight (lb): 154Weight (oz): 1.65Weight (kg): 69.900 Medications:Active Meds + DC'd Last 24 HrsSodium Chloride (SODIUM CHLORIDE) 10 ML BID IV Benzocaine/Butamben/Tetracaine HCl (CETACAINE) 1 APPLIC ASDIR PRN MM (CKD) Flumazenil (ROMAZICON) 0.2 MG ASDIR PRN IV Midazolam HCl (VERSED) 2 MG ASDIR PRN IV Naloxone HCl (NARCAN) 0.4 MG ASDIR PRN IV Vancomycin HCl (VANCOMYCIN HCL) 1,000 MG Q24H IV Sodium Chloride (SODIUM CHLORIDE 0.9%) 250 MLLidocaine HCl (LIDOCAINE 1% 5ML) 5 ML ONCE ONE LOCAL (DC) Sodium Chloride (SODIUM CHLORIDE) 10 ML ASDIR PRN IV Cefepime HCl (MAXIPIME) 1 GM Q6H IV Sodium Chloride (SODIUM CHLORIDE) 10 MLMiscellaneous Information (VANCOMYCIN PHARMACY TO DOSE) 1 EACH ASDIR IV (CKD) Hydralazine HCl (APRESOLINE) 10 MG Q6H PRN PRN IV Insulin Glargine (Lantus/Semglee) 15 UNIT BEDTIME SUBQ Insulin Human Lispro (HUMALOG) 5 UNIT AC SUBQ Lidocaine (LIDODERM) 1 PATCH DAILY TOPICAL Hydromorphone HCl (DILAUDID) 1 MG Q3H PRN PRN IV Hydromorphone HCl (DILAUDID) 0.5 MG Q3H PRN PRN IV Meropenem (MEROPENEM) 500 MG Q6H IV (DC) Sterile Water (WATER FOR INJECTION) 10 MLDaptomycin (CUBICIN 500MG) 700 MG Q24H IV (DC) Sodium Chloride (SODIUM CHLORIDE 0.9%) 50 MLLorazepam (ATIVAN) 1 MG ONCE PRN IV Sodium Chloride (SODIUM CHLORIDE) 0 ASDIR PRN IV Insulin Human Lispro (HUMALOG) 0 AC HS SUBQ Dextrose/Water (DEXTROSE 10% IN WATER) 125 ML ASDIR PRN IV (CKD) Dextrose/Water (DEXTROSE 10% IN WATER) 250 ML ASDIR PRN IV (CKD) Glucagon (GLUCAGON) 1 MG ASDIR PRN IM Dextrose/Water (Dextrose 10% 1,000 mL) 1,000 ML ASDIR IV Acetaminophen (TYLENOL) 650 MG Q6H PRN PRN PO Bisacodyl (DULCOLAX) 10 MG DAILY PRN PRN RECTAL Docusate Sodium (COLACE) 100 MG Q12H PRN PRN PO Ondansetron HCl (ZOFRAN) 4 MG Q6H PRN PRN IV Heparin Sodium (HEPARIN 5000 UNITS/ML) 5,000 UNIT Q8HR SUBQ Physical ExamGeneral appearance: alert, awake, no acute distressPsych: alert, normal affect, oriented x 3HEENT: anicteric, mucosal membranes moist, pupils reactive to light, sclera clearNeck: non-tender, supple, no JVDCardiovascular: regular rate rhythm, S1/A6Vaonnwqqbud: aerating well, clear bilaterally, clear to auscultationAbdomen: bowel sounds present, non-distended, softSkin: R BKA wrapped with kerlix and JOAN, removed incision healing well, some small blisters on distal limb, no erythema. DSGings replaced. Left foot/ankle wrappedMusculoskeletal - general: Musculoskeletal - general: MMT BUE 5/5, LLE 4/5, R hip 3-, R knee in maxine-techorthoticNeuro/DIRECTOR OPERATING ROOM: alert, oriented X 3, CNII-XII intact ResultsFindings/Data:Laboratory Tests: 09/02 09/01 09/01 09/01 09/01 0430 [...] (70 - 110 MG/DL) 145 H Radiology data:Recent Impressions:ULTRASOUND - DUP VEIN UNI/LTD 08/28 0857 Report Impression - Status: SIGNED Entered: 08/28/2022 0927 IMPRESSION: 1. No evidence of venous thrombosis involving left lower extremity. 2. Approximately 8 x 2 x 1.3 cm complex fluid collection along the left upper calf probably representing a small hematoma. Impression By: [email or web address] - Roger Parra M.D.RADIOLOGY - XR FLUOROSCOPY 0-60 MIN 08/28 1101 Report Impression - Status: SIGNED Entered: 08/28/2022 1120 IMPRESSION: Fluoroscopy dosage documentation. See also separate procedure notes. Impression By: [email or web address] - Bishop Atkins M.D. Diagnosis, Assessment PlanFree Text A P:Assessment: Severe Gas gangrene right foot and right ankle associated with osteomyelitis andnecrotizing fasciitisS/p surgical debridement and washout08/28: S/p right SATHYAA-Dr. LeroySignificant impairment in self-care, ADLs and functional mobilityImpaired mobility and gaitPostoperative painDiabetic polyneuropathyDKA, DM 2, poorly controlledMinimal PADMRSA bacteremia/sepsisAKISevere hyponatremia-resolvedHTNAcute on chronic anemia requiring multiple transfusionsLeft calf hematomaEdema and clinical arthritis left ankleProstatic abscess 08/26: S/p transrectal ultrasound aspiration of abscess and transurethral resection of prostate and unroofing of abscess Echo: EF 55-59%, grade 1 diastolic dysfunctionHypoalbuminemia Plan:-Continue PT and OT-Case management for safe discharge planning.-Decubitus prevention-Nutrition, monitor the patient's p.o. intake, albumin 1.3, check prealbumin, dietary consultation, protein supplements promote healing-Strict fall and safety precaution-DVT prophylaxis-subcutaneous heparin-GI prophylaxis on Pepcid-Early mobilization-OOB to chair-Work on bed mobility, transfer training, ADLs, pre-gait and gait exercises as tolerable. -Increase endurance and strength-Pain management-patient requiring IV Dilaudid-Glycemic control as per endo-blood sugars much improved-Monitor labs-WBC trending down, hemoglobin 9.1, s/p PRBC transfusions, sodium normal, creatinine 1.2, potassium elevating given Kayexalate, awaiting potassiumlevel-Has received multiple units of PRBCs-serial H/H-ID requesting JIMENA to rule out endocarditis, continue ABX-Patient on CBI and urine is clear-DC CBI if okay with -Edema and clinical arthritis left ankle-Lidoderm patch and Joan wrap-NWB right BKA, continue Maxine-tech orthotic-incision healing well, some blisters on distal limb, no erythema or signs of infection, dressings reapplied-Right BKA amputee rehab-Excellent candidate for inpatient rehab-Patient and would like to stay here at [facility] rehab.-Patient approved for IRF. -Awaiting results of JIMENA-Urine clear-asked RN to DC CBI if okay with -Preadmission screen completed.-USYLP-rvuifquz-Pgvsyv CBC Progress: Bed Mobility - Rolling: Minimal Assistance Bed Mobility - Supine to Sit: Moderate Assistance Bed Mobility - Sit to Supine: Moderate Assistance Scooting: Moderate Assistance Sit to Stand: Dependent Static Sitting: Minimal Assistance Dynamic Sitting: Minimal Assistance Static Standing: Dependent Dynamic Standing: Not Tested Functional Exercises: SUPINE EXERCISES Total time was 34 minutes > 50% with patient performing physical examination, discussing with patient and about JIMENA, transfer to rehab, rehab plan of care, goals, therapies, progress, medications, labs. All questions answeredOrders: Procedure Date/time Status CBC W/AUTO DIFF 09/02 622 Active Rehab attestation:. at 1118 RPT #:[id number] OF REPORTPRProgress [id number]:18:00G.[id number] able for patient xtxvCFLQXDOEAMWYTM1026-19-21E52:18:26 [facility] 2022-09-01 18:12:00 [id number] ZPUHznBD1YGZ5SOVeKTvFELQjd5Vv r469SjlJbgKvBs3HuxkeAC6Kgvl1111-97-65S09:12:00 [facility] HospitalEnd[facility] Progress NoteREPORT#:[id number] REPORT STATUS: SignedDATE:09/01/22 TIME: 1811 PATIENT: KARMA ROWLAND UNIT #: [id number]#: [id number] [address] [birth year] AGE: 56 SEX: M ATTEND: Wilbert Ramires MDADM AUTHOR: Braxton Chapin MD * ALL edits or amendments must be made on the electronic/computer document * SubjectivePatient reports: no complaints Objective GeneralVS:Last Documented: Result Date Time B/P 171/82 09/01 1800 B/P Mean 118 09/01 1800 Pulse 89 09/01 1800 Resp 15 09/01 1800 Pulse Ox 98 09/01 1500 Temp 36.6 09/01 1105 O2 Delivery Room air 08/31 1929 O2 Flow Rate 7 08/28 1222 PATIENT WEIGHT: Weight (lb): 154Weight (oz): 1.65Weight (kg): 69.900 Medications:Active Meds + DC'd Last 24 HrsSodium Chloride (SODIUM CHLORIDE) 10 ML BID IV Benzocaine/Butamben/Tetracaine HCl (CETACAINE) 1 APPLIC ASDIR PRN MM (CKD) Flumazenil (ROMAZICON) 0.2 MG ASDIR PRN IV Midazolam HCl (VERSED) 2 MG ASDIR PRN IV Naloxone HCl (NARCAN) 0.4 MG ASDIR PRN IV Vancomycin HCl (VANCOMYCIN HCL) 1,000 MG Q24H IV Sodium Chloride (SODIUM CHLORIDE 0.9%) 250 MLLidocaine HCl (LIDOCAINE 1% 5ML) 5 ML ONCE ONE LOCAL (DC) Sodium Chloride (SODIUM CHLORIDE) 10 ML ASDIR PRN IV Cefepime HCl (MAXIPIME) 1 GM Q6H IV Sodium Chloride (SODIUM CHLORIDE) 10 MLMiscellaneous Information (VANCOMYCIN PHARMACY TO DOSE) 1 EACH ASDIR IV (CKD) Hydralazine HCl (APRESOLINE) 10 MG Q6H PRN PRN IV Insulin Glargine (Lantus/Semglee) 15 UNIT BEDTIME SUBQ Insulin Human Lispro (HUMALOG) 5 UNIT AC SUBQ Lidocaine (LIDODERM) 1 PATCH DAILY TOPICAL Hydromorphone HCl (DILAUDID) 1 MG Q3H PRN PRN IV Hydromorphone HCl (DILAUDID) 0.5 MG Q3H PRN PRN IV Meropenem (MEROPENEM) 500 MG Q6H IV (DC) Sterile Water (WATER FOR INJECTION) 10 MLDaptomycin (CUBICIN 500MG) 700 MG Q24H IV (DC) Sodium Chloride (SODIUM CHLORIDE 0.9%) 50 MLLorazepam (ATIVAN) 1 MG ONCE PRN IV Sodium Chloride (SODIUM CHLORIDE) 0 ASDIR PRN IV Insulin Human Lispro (HUMALOG) 0 AC HS SUBQ Dextrose/Water (DEXTROSE 10% IN WATER) 125 ML ASDIR PRN IV (CKD) Dextrose/Water (DEXTROSE 10% IN WATER) 250 ML ASDIR PRN IV (CKD) Glucagon (GLUCAGON) 1 MG ASDIR PRN IM Dextrose/Water (Dextrose 10% 1,000 mL) 1,000 ML ASDIR IV Acetaminophen (TYLENOL) 650 MG Q6H PRN PRN PO Bisacodyl (DULCOLAX) 10 MG DAILY PRN PRN RECTAL Docusate Sodium (COLACE) 100 MG Q12H PRN PRN PO Ondansetron HCl (ZOFRAN) 4 MG Q6H PRN PRN IV Heparin Sodium (HEPARIN 5000 UNITS/ML) 5,000 UNIT Q8HR SUBQ Physical ExamGeneral appearance: alert, awake Diagnosis, Assessment PlanHospital course to date:Laboratory Tests: 09/01 09/01 09/01 09/01 09/01 1704 1104 0852 0704 0345Chemistry POC Glucose (70 - 110 MG/DL) 127 H 118 H 145 H Total Creatine Kinase (46 - 171 79Units/L)Serology SARS-CoV-2 Ag (Rapid) (Negative) Negative 09/01 1915 Chemistry POC Glucose (70 - 110 MG/DL) 176 H Laboratory Tests: 08/31 08/31 08/31 08/31 08/30 1240 1203 0714 0642 1943Chemistry Sodium (134 - 147 mEq/L) 136 Potassium [...] H Calcium (8.0 - 10.5 mg/dL) 7.2 LHematology WBC (4.5 - 11.0 x10 3/uL) 8.7 [...] % (Auto) (14.0 - 32.0 %) 16.8 [place] % (Auto) (4.8 - 9.0 %) 4.8 Eos % (Auto) (0.3 - 3.7 %) 1.6 Baso % (Auto) (0.0 - 2.0 %) 0.2 Neut # (Auto) (2.0 - 7.6 x10 3/uL) 6.63 Lymph # (Auto) (1.0 - 3.8 x10 3/uL) 1.46 [place] # (Auto) (0.1 - 0.8 x10 3/uL) 0.42 Eos # (Auto) (0.0 - 0.2 x10 3/uL) 0.14 Baso # (Auto) (0.0 - 0.2 x10 3/uL) 0.02 Abs Immat Gran (auto) (0.00 - 0.03 0.03x10 3/uL) Add Manual Diff NO Immature Gran % (0.0 - 2.0 %) 0.3 Nucleated RBC % (0 - 0 %) 0.0 Nucleated RBCs # (Man) (0.0 - 0.1 0.00x10 3/uL) 08/30 165 Chemistry POC Glucose (70 - 110 MG/DL) 109 Laboratory Tests: 08/30 08/30 08/30 08/30 08/29 1651 1218 0896 0545 2011Chemistry Sodium (134 - 147 mEq/L) 136 Potassium [...] MG/DL) 4.6 Magnesium (1.80 - 2.40 mg/dL) 2.01Hematology WBC (4.5 - 11.0 x10 3/uL) 12.6 [...] (Auto) (14.0 - 32.0 %) 13.4 L [place] % (Auto) (4.8 - 9.0 %) 6.3 Eos % (Auto) (0.3 - 3.7 %) 0.8 Baso % (Auto) (0.0 - 2.0 %) 0.2 Neut # (Auto) (2.0 - 7.6 x10 3/uL) 9.96 H Lymph # (Auto) (1.0 - 3.8 x10 3/uL) 1.69 [place] # (Auto) (0.1 - 0.8 x10 3/uL) 0.79 Eos # (Auto) (0.0 - 0.2 x10 3/uL) 0.10 Baso # (Auto) (0.0 - 0.2 x10 3/uL) 0.02 Abs Immat Gran (auto) (0.00 - 0.03 0.08 Hx10 3/uL) Add Manual Diff NO Immature Gran % (0.0 - 2.0 %) 0.6 Nucleated RBC % (0 - 0 %) 0.0 Nucleated RBCs # (Man) (0.0 - 0.1 0.00x10 3/uL) Laboratory Tests: 08/29 08/29 08/29 08/29 [...] (Auto) (14.0 - 32.0 %) 10.0 L [place] % (Auto) (4.8 - 9.0 %) 5.6 Eos % (Auto) (0.3 - 3.7 %) 0.5 Baso % (Auto) (0.0 - 2.0 %) 0.1 Neut # (Auto) (2.0 - 7.6 x10 3/uL) 11.78 H Lymph # (Auto) (1.0 - 3.8 x10 3/uL) 1.42 [place] # (Auto) (0.1 - 0.8 x10 3/uL) 0.79 Eos # (Auto) (0.0 - 0.2 x10 3/uL) 0.07 Baso # (Auto) (0.0 - 0.2 x10 3/uL) 0.02 Abs Immat Gran (auto) (0.00 - 0.03 x10 3/uL) 0.08 H Add Manual Diff NO Immature Gran % (0.0 - 2.0 %) 0.6 Nucleated RBC % (0 - 0 %) 0.0 Nucleated RBCs # (Man) (0.0 - 0.1 x10 3/uL) 0.00 Laboratory Tests: 08/28 08/28 08/28 08/28 1709 1302 1218 0624 Chemistry POC Glucose (70 - 110 MG/DL) 103 206 H 185 H 180 H 08/28 08/27 08/27 0420 2050 1825 [...] (Auto) (14.0 - 32.0 %) 8.2 L [place] % (Auto) (4.8 - 9.0 %) 4.1 L Eos % (Auto) (0.3 - 3.7 %) 0.4 Baso % (Auto) (0.0 - 2.0 %) 0.1 Neut # (Auto) (2.0 - 7.6 x10 3/uL) 11.92 H Lymph # (Auto) (1.0 - 3.8 x10 3/uL) 1.13 [place] # (Auto) (0.1 - 0.8 x10 3/uL) 0.57 Eos # (Auto) (0.0 - 0.2 x10 3/uL) 0.05 Baso # (Auto) (0.0 - 0.2 x10 3/uL) 0.01 Abs Immat Gran (auto) (0.00 - 0.03 x10 3/uL) 0.07 H Add Manual Diff NO Immature Gran % (0.0 - 2.0 %) 0.5 Nucleated RBC % (0 - 0 %) 0.0 Nucleated RBCs # (Man) (0.0 - 0.1 x10 3/uL) 0.00 Microbiology: Date/Time Procedure - Status Source Growth 08/29 1347 Blood Culture - RECD BLOOD 08/28 134 Blood Culture - RECD BLOOD Recent Impressions:ULTRASOUND - DUP VEIN UNI/LTD 08/28 0857 Report Impression - Status: SIGNED Entered: 08/28/2022 0927 IMPRESSION: 1. No evidence of venous thrombosis involving left lower extremity. 2. Approximately 8 x 2 x 1.3 cm complex fluid collection along the left upper calf probably representing a small hematoma. Impression By: [email or web address] - Roger Parra M.D.RADIOLOGY - XR FLUOROSCOPY 0-60 MIN 08/28 1101 Report Impression - Status: SIGNED Entered: 08/28/2022 1120 IMPRESSION: Fluoroscopy dosage documentation. See also separate procedure notes. Impression By: [email or web address] - Bishop Atkins M.D. Laboratory Tests: 08/27 08/27 08/27 08/27 1728 1147 0824 0561 Chemistry Sodium (134 - 147 mEq/L) 137 [...] (Auto) (14.0 - 32.0 %) 7.0 L [place] % (Auto) (4.8 - 9.0 %) 3.3 L Eos % (Auto) (0.3 - 3.7 %) 0.3 Baso % (Auto) (0.0 - 2.0 %) 0.1 Neut # (Auto) (2.0 - 7.6 x10 3/uL) 14.14 H Lymph # (Auto) (1.0 - 3.8 x10 3/uL) 1.11 [place] # (Auto) (0.1 - 0.8 x10 3/uL) 0.52 Eos # (Auto) (0.0 - 0.2 x10 3/uL) 0.04 Baso # (Auto) (0.0 - 0.2 x10 3/uL) 0.02 Abs Immat Gran (auto) (0.00 - 0.03 x10 3/uL) 0.10 H Add Manual Diff NO Immature Gran % (0.0 - 2.0 %) 0.6 Nucleated RBC % (0 - 0 %) 0.0 Nucleated RBCs # (Man) (0.0 - 0.1 x10 3/uL) 0.00 Microbiology: Date/Time Procedure - Status Source Growth [...] (Auto) (14.0 - 32.0 %) 7.4 L [place] % (Auto) (4.8 - 9.0 %) 3.9 L Eos % (Auto) (0.3 - 3.7 %) 0.5 Baso % (Auto) (0.0 - 2.0 %) 0.1 Neut # (Auto) (2.0 - 7.6 x10 3/uL) 15.49 H Lymph # (Auto) (1.0 - 3.8 x10 3/uL) 1.31 [place] # (Auto) (0.1 - 0.8 x10 3/uL) 0.69 Eos # (Auto) (0.0 - 0.2 x10 3/uL) 0.08 Baso # (Auto) (0.0 - 0.2 x10 3/uL) 0.01 Abs Immat Gran (auto) (0.00 - 0.03 x10 3/uL) 0.11 H Add Manual Diff NO Immature Gran % (0.0 - 2.0 %) 0.6 Nucleated RBC % (0 - 0 %) 0.0 Nucleated RBCs # (Man) (0.0 - 0.1 x10 3/uL) 0.00 Laboratory Tests: 08/25 08/25 08/25 08/25 1723 1111 1044 1044 Chemistry Potassium (3.4 - 5.0 mEq/L) 4.5 POC Glucose (70 - 110 MG/DL) 132 H 143 H Total Creatine Kinase (46 - 171 Units/L) 17 L Urines Urine Color (YEL/STRAW) YELLOW Urine Appearance (CLEAR) TURBID H Urine pH (5.0 - 7.0) 5.0 Ur Specific [place] (1.005 - 1.030) 1.012 Urine Protein (NEGATIVE) [...] (Auto) (14.0 - 32.0 %) 8.1 L [place] % (Auto) (4.8 - 9.0 %) 4.3 L Eos % (Auto) (0.3 - 3.7 %) 0.5 Baso % (Auto) (0.0 - 2.0 %) 0.1 Neut # (Auto) (2.0 - 7.6 x10 3/uL) 15.44 H Lymph # (Auto) (1.0 - 3.8 x10 3/uL) 1.45 [place] # (Auto) (0.1 - 0.8 x10 3/uL) 0.77 Eos # (Auto) (0.0 - 0.2 x10 3/uL) 0.09 Baso # (Auto) (0.0 - 0.2 x10 3/uL) 0.02 Abs Immat Gran (auto) (0.00 - 0.03 x10 3/uL) 0.13 H Add Manual Diff NO Immature Gran % (0.0 - 2.0 %) 0.7 Nucleated RBC % (0 - 0 %) 0.0 Nucleated RBCs # (Man) (0.0 - 0.1 x10 3/uL) 0.00 Microbiology: Date/Time Procedure - Status Source Growth 08/26 1043 Urine Culture - WKST URINE 08/26 1043 Blood Culture - RECD BLOOD 08/26 1043 Blood Culture - RECD BLOOD Laboratory Tests: 08/20 08/20 08/20 08/20 08/20 1107 0756 0647 0554 0454Chemistry Sodium (134 - 147 mEq/L) 137 Potassium [...] L Albumin (3.4 - 5.0 g/dL) 2.00 LHematology WBC (4.5 - 11.0 x10 3/uL) 22.8 [...] (Auto) (14.0 - 32.0 %) 4.8 L [place] % (Auto) (4.8 - 9.0 %) 2.9 L Eos % (Auto) (0.3 - 3.7 %) 0.0 L Baso % (Auto) (0.0 - 2.0 %) 0.2 Neut # (Auto) (2.0 - 7.6 x10 3/uL) 19.90 H Lymph # (Auto) (1.0 - 3.8 x10 3/uL) 1.10 [place] # (Auto) (0.1 - 0.8 x10 3/uL) 0.66 Eos # (Auto) (0.0 - 0.2 x10 3/uL) 0.00 Baso # (Auto) (0.0 - 0.2 x10 3/uL) 0.04 Abs Immat Gran (auto) (0.00 - 0.03 1.12 Hx10 3/uL) Add Manual Diff NO Immature Gran % (0.0 - 2.0 %) 4.9 H Nucleated RBC % (0 - 0 %) 0.0 Nucleated RBCs # (Man) (0.0 - 0.1 0.00x10 3/uL) 08/20 08/20 08/19 08/19 08/19 0259 [...] (37.5 - 50.7 %) 21.8 L 08/19 1652Chemistry Sodium (134 - 147 mEq/L) 133 L [...] 2.03 Albumin (3.4 - 5.0 g/dL) 1.40 LHematology WBC (4.5 - 11.0 x10 3/uL) 20.3 [...] (Auto) (14.0 - 32.0 %) 3.8 L [place] % (Auto) (4.8 - 9.0 %) 3.7 L Eos % (Auto) (0.3 - 3.7 %) 0.0 L Baso % (Auto) (0.0 - 2.0 %) 0.3 Neut # (Auto) (2.0 - 7.6 x10 3/uL) 17.97 H Lymph # (Auto) (1.0 - 3.8 x10 3/uL) 0.76 L [place] # (Auto) (0.1 - 0.8 x10 3/uL) 0.74 Eos # (Auto) (0.0 - 0.2 x10 3/uL) 0.00 Baso # (Auto) (0.0 - 0.2 x10 3/uL) 0.07 Abs Immat Gran (auto) (0.00 - 0.03 0.71 Hx10 3/uL) Add Manual Diff NO Immature Gran % (0.0 - 2.0 %) 3.5 H Nucleated RBC % (0 - 0 %) 0.0 Nucleated RBCs # (Man) (0.0 - 0.1 0.00x10 3/uL) 08/19 08/19 1622 1601 Chemistry POC Glucose (70 - 110 MG/DL) 232 H Urines Urine Color (YEL/STRAW) YELLOW Urine Appearance (CLEAR) SL CLOUDY Urine pH (5.0 - 7.0) 5.0 Ur Specific [place] (1.005 - 1.030) 1.013 Urine Protein (NEGATIVE) [...] (Auto) (14.0 - 32.0 %) 4.3 L [place] % (Auto) (4.8 - 9.0 %) 3.1 L Eos % (Auto) (0.3 - 3.7 %) 0.0 L Baso % (Auto) (0.0 - 2.0 %) 0.3 Neut # (Auto) (2.0 - 7.6 x10 3/uL) 19.17 H Lymph # (Auto) (1.0 - 3.8 x10 3/uL) 0.91 L [place] # (Auto) (0.1 - 0.8 x10 3/uL) 0.67 Eos # (Auto) (0.0 - 0.2 x10 3/uL) 0.01 Baso # (Auto) (0.0 - 0.2 x10 3/uL) 0.07 Abs Immat Gran (auto) (0.00 - 0.03 x10 3/uL) 0.51 H Add Manual Diff NO Immature Gran % (0.0 - 2.0 %) 2.4 H Nucleated RBC % (0 - 0 %) 0.0 Nucleated RBCs # (Man) (0.0 - 0.1 x10 3/uL) 0.00 08/18 08/18 08/18 08/18 2246 2157 1854 [...] Microbiology: Date/Time Procedure - Status Source Growth 03/28 1210 Wound Culture - RES ABSCESS 08/19 1210 Anaerobic Culture - RES ABSCESS 08/19 1210 Gram Stain - RES ABSCESS Recent Impressions:ULTRASOUND - DUP KRZYSZTOF DAGO UNI/LTD 08/19 0950 Report Impression - Status: SIGNED Entered: 08/19/2022 1056 IMPRESSION: No sonographic evidence for flow-limiting stenosis in the right lower extremity arterial system. Impression By: [email or web address] - Abraham Ross M.D. Laboratory Tests: 08/18 08/18 08/18 08/18 08/18 1430 1430 1404 1309 1203Chemistry Sodium (134 - 147 mEq/L) 131 L [...] 20.0 L Cholesterol/HDL Ratio (3.43 - 4.97 4.00RATIO) TSH (0.42 - 5.47) 0.96 Free T4 (0.77 - 1.61 ng/dL) 0.7 L 08/18 08/18 08/18 08/18 08/18 1107 1004 0900 0823 0549 Chemistry POC Glucose (70 - 110 MG/DL) 223 H 304 H 405 H 449 H Hemoglobin A1c (4.8 - 6.0 %A1C) 13.4 H 08/18 08/18 08/18 0549 0305 0207Blood Gas Puncture Site R Radial O2 Saturation [...] O2 Delivery Device Room Air FiO2 (%) 21Chemistry Sodium (134 - 147 mEq/L) 121 *L [...] 2.34 Albumin (3.4 - 5.0 g/dL) 1.60 LSerology Influenza Type A (PCR) (Negative) Negative Influenza Type B (PCR) (Negative) NegativeToxicology Acetone, Quant (Neg - <20 mg/dL) Large [...] Culture Gram Stain - RES BLOOD Recent Impressions:RADIOLOGY - XR CHEST 2 V 08/18 0201 Report Impression - Status: SIGNED Entered: 08/18/2022 0317 IMPRESSION: Ill-defined somewhat nodular opacity measuring 3.2 cm laterally in the right mid lung suspicious for rounded pneumonia given provided history, but underlying neoplasm can not be excluded. Followup radiographs are recommended after appropriate treatment in order to document complete resolution and exclude an underlying process or neoplasm. Impression By: [email or web address] Cr Adams M.D.RADIOLOGY - XR FOOT 3 + V RT 08/18 0238 Report Impression - Status: SIGNED Entered: 08/18/2022 0358 IMPRESSION: No acute osseous findings. No convincing evidence for osteomyelitis. MRI is more sensitive for detecting osteomyelitis.Impression By: Ankur Ladd M.D.CAT SCAN - CT ABD PELVIS W/CONT 08/18 0339 Report Impression - Status: SIGNED Entered: 08/18/2022 0546 IMPRESSION: 3.3 cm hypodensity in the left posterior prostate or seminal vesicle. This could represent an abscess. Contrast-enhanced MRI of the pelvis would be helpful for further evaluation.No acute intra-abdominal findings otherwise.Impression By: Ankur Ladd M.D.CAT SCAN - CT LOWER EXTRM W/O C RT 08/18 0645 Report Impression - Status: SIGNED Entered: 08/18/2022 0827 IMPRESSION: Extensive soft tissue edema with mottled gas in the subcutaneous and intramuscular compartments of the foot compatible with gas-forming infection. Disease extends into the visualized distal leg. Impression By: Jamel Dorantes M.D. 1. 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 DKA3. Cellulitis and gangrene of the right foot.4. Sepsis5. Altered mental status6. High LFTsBlood sugar 145-118 mg/dL.HbA1c 13.4%Adjust insulin dose.Wound care and IV antibiotics.S/P wound debridement. at 1813 RPT #:[id number] OF REPORTPRProgress [id number]:12:00G.[id number] able for patient mlatOALYKDYUMGSCHO2058-36-20S80:14:27 [facility] 2022-09-01 15:30:00 [id number] tRhtvgP7WSdOlKYddtN712fsXTNf4 5U/oB8/2shp+4LmD/cV95JELgr24166-79-77Z93:30:00 [facility] HospitalPodiatry Progress NoteREPORT#:[id number] REPORT STATUS: SignedDATE:09/01/22 TIME: 1530 PATIENT: KARMA ROWLAND UNIT #: [id number]#: [id number] [address] AGE: 56 SEX: M ATTEND: Wilbert Ramires MDADM AUTHOR: Liam Pedersen DPM * ALL edits or amendments must be made on the electronic/computer document * SubjectiveChief complaint:seen at bedside,. family memebers next to him denies having any pain foot covered and protected and offloaded drainage noted serosang. increased warmthPatient reports: no confusion, no diarrhea, no fatigue, no headache, no nausea Objective GeneralVS:Last Documented: Result Date Time Pulse Ox 99 09/01 1105 B/P 141/67 09/01 1105 B/P Mean 0.0 09/01 1105 Temp 36.6 09/01 1105 Pulse 86 09/01 1105 Resp 15 09/01 1105 O2 Delivery Room air 08/31 192 O2 Flow Rate 7 08/28 1222 PATIENT WEIGHT: Weight (lb): 154Weight (oz): 1.65Weight (kg): 69.900 Medications:Active Meds + DC'd Last 24 HrsSodium Chloride (SODIUM CHLORIDE) 10 ML BID IV Benzocaine/Butamben/Tetracaine HCl (CETACAINE) 1 APPLIC ASDIR PRN MM (CKD) Flumazenil (ROMAZICON) 0.2 MG ASDIR PRN IV Midazolam HCl (VERSED) 2 MG ASDIR PRN IV Naloxone HCl (NARCAN) 0.4 MG ASDIR PRN IV Vancomycin HCl (VANCOMYCIN HCL) 1,000 MG Q24H IV Sodium Chloride (SODIUM CHLORIDE 0.9%) 250 MLLidocaine HCl (LIDOCAINE 1% 5ML) 5 ML ONCE ONE LOCAL (DC) Sodium Chloride (SODIUM CHLORIDE) 10 ML ASDIR PRN IV Cefepime HCl (MAXIPIME) 1 GM Q6H IV Sodium Chloride (SODIUM CHLORIDE) 10 MLMiscellaneous Information (VANCOMYCIN PHARMACY TO DOSE) 1 EACH ASDIR IV (CKD) Hydralazine HCl (APRESOLINE) 10 MG Q6H PRN PRN IV Insulin Glargine (Lantus/Semglee) 15 UNIT BEDTIME SUBQ Insulin Human Lispro (HUMALOG) 5 UNIT AC SUBQ Lidocaine (LIDODERM) 1 PATCH DAILY TOPICAL Hydromorphone HCl (DILAUDID) 1 MG Q3H PRN PRN IV Hydromorphone HCl (DILAUDID) 0.5 MG Q3H PRN PRN IV Meropenem (MEROPENEM) 500 MG Q6H IV (DC) Sterile Water (WATER FOR INJECTION) 10 MLDaptomycin (CUBICIN 500MG) 700 MG Q24H IV (DC) Sodium Chloride (SODIUM CHLORIDE 0.9%) 50 MLLorazepam (ATIVAN) 1 MG ONCE PRN IV Sodium Chloride (SODIUM CHLORIDE) 0 ASDIR PRN IV Insulin Human Lispro (HUMALOG) 0 AC HS SUBQ Dextrose/Water (DEXTROSE 10% IN WATER) 125 ML ASDIR PRN IV (CKD) Dextrose/Water (DEXTROSE 10% IN WATER) 250 ML ASDIR PRN IV (CKD) Glucagon (GLUCAGON) 1 MG ASDIR PRN IM Dextrose/Water (Dextrose 10% 1,000 mL) 1,000 ML ASDIR IV Acetaminophen (TYLENOL) 650 MG Q6H PRN PRN PO Bisacodyl (DULCOLAX) 10 MG DAILY PRN PRN RECTAL Docusate Sodium (COLACE) 100 MG Q12H PRN PRN PO Ondansetron HCl (ZOFRAN) 4 MG Q6H PRN PRN IV Heparin Sodium (HEPARIN 5000 UNITS/ML) 5,000 UNIT Q8HR SUBQ I O:24 hour I O ending at 0700: 09/01 0700 08/31 1900 Intake Total 400 Output Total Balance 400 Intake, IV 50 Intake, 350 Packed Cells Number 2 Bowel Movements Dietitian nutrition assessmentThe data set between the solid lines has been imported from the dietitian's assessment. BMI Calculated: 24.9Nutrition related diagnosis: OverweightNutrition diagnosis details: BMI 25-29.9Nutrition problem: Increased nutrient needsNutrition etiology: metabolic demand of wound , healingNutrition signs and symptoms: recent BKA with need for , arginine and glutamineNutrition prescription: 1) Recommend Cardiac ADA diet with 5 CHO/meal. 2) Supplement with Chinedu BID.Dietitian name: Judith Smith, DIETAssessment completed: 08/28/22 Physical ExamGeneral appearance: alert, awake, oriented, pleasant, conversationalWound/incision: Location:Right foot s/p BKA DP and PT pulses very weak left foot. Sensation is greatly decreased on the left foot. Left foot has no ulcers but has OA changes at ankle with some chronic edema.LE vascular pulse assess:Nonpalpable R posterior tibialis, Nonpalpable L posterior tibialis, Nonpalpable R dorsalis pedis, Nonpalpable L dorsalis pedis Considered stroke alert: no ResultsFindings/Data:Laboratory Tests: 09/01 09/01 09/01 09/01 08/31 1104 0852 0704 0345 1916Chemistry POC Glucose (70 - 110 MG/DL) 118 H 145 H 176 H Total Creatine Kinase (46 - 171 79Units/L)Serology SARS-CoV-2 Ag (Rapid) (Negative) Negative 08/31 08/31 1810 1618 Chemistry POC Glucose (70 - 110 MG/DL) 163 H Hematology Hgb (12.5 - 16.9 g/dL) 9.1 L Hct (37.5 - 50.7 %) 28.2 L Diagnosis, Assessment PlanFree Text A P:Gas gangrene right foot s/p BKADiabetes with peripheral neuropathyMinimal peripheral vascular diseeseSepsisDKAEdema and arthritis left ankle IV antibioticsMonitor leukocytosisNIAS: minimal PVD right08/19 OR culture: MRSAblood cultures: MRSAdc lavageace wrap compression left anklevenous u/s left no dvt at 1532 RPT #:[id number] OF REPORTPRProgress [id number]:30:00G.[id number] able for patient npgjSUEQSDNAITKNPG1682-46-38Q29:32:41 [facility] 2022-09-01 12:15:00 [id number] g/rRPrERJ3vXE6yblIC8eIq5+cX/i 10vttpha+rHKGh29DSqSCPT5Gcc0132-12-29F07:15:00 [facility] ([facility])Infectious Dis. Progress NoteREPORT#:[id number] REPORT STATUS: SignedDATE:09/01/22 TIME: 1215 PATIENT: KARMA ROWLAND UNIT #: [id number]#: [id number] [address] [birth year] AGE: 56 SEX: M ATTEND: Wilbert Ramires [facility] AUTHOR: Merry Wolff MD * ALL edits or amendments must be made on the electronic/computer document * SubjectiveChief complaint:Follow-up on MRSA bacteremia, right lower extremity necrotizing soft tissue infection.HPI:PT is a 56yr old male with history of diabetes mellitus type 2, hypertension whowas admitted with altered mental status and right-sided foot infection. According to him, he noticed a blister on his right foot around 3 days prior to presentation. His foot got progressively more swollen and erythema extended proximally to his lateral foot and ankle. CT abdomen and pelvis with contrast is concerning for possible prostate abscess. CT of lower extremity without contrast shows extensive soft tissue edema with mottled gas in the subcutaneous and intramuscular compartments of the foot, compatible with gas-forming infection. Patient's blood cultures have come back positive for MRSA in 2 out of 2 sets. PT has had persistent (+)Ve cx for MRSA 08/18- 08/22. He underwent a debridement of his foot on 08/19 and cx grew MRSA. PT was started on Vancomycin and clindamycin on 08/18. His MRI showed a prostate abscess. 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 08/25 PT is afebrile, his WBX is 17.9, he is awake and alert. at the bedside 08/26 plan for transrectal aspiration today and BKA on 08/28, pt is afebrile, WBC is17.7, blood cx sent on 08/25 still positive, urine cx sent on 08/25 contaminated 08/27 s/p transrectal aspiration and unroofing of prostate abscess 08/26, aspirationcx growing GNR, pt is afebrile, WBC down to 15.9 from 17.7, 08/28 Pt had right BKA today, afebrile, WBC 13.8 from 15.9 08/29 pt doing well, awake, alert, afebrile, family at bedside, states he only hasa little bit of pain 09/01 is in IMCU, doing well, afebrilePatient reports:No: cough, diarrhea, fever, headache, nausea, shortness of breath. Portions of this section were scribed by Jill Quintero on 09/01/22 at 1215 Objective GeneralVS/I O:Vital Signs Date Temp Pulse Resp B/P B/P Mean Pulse Ox FiO2 08/31-09/01 97.5-98.5 79-97 10-17 115-195/59-88 0.0-124 90-100 Last Documented: Result Date Time Pulse Ox 99 04/ 1105 B/P 141/67 04/ 1105 B/P Mean 0.0 09/01 1105 Temp 97.9 04/ 1105 Pulse 86 04/ 1105 Resp 15 04 1105 O2 Delivery Room air 08/31 1929 O2 Flow Rate 7 08/28 1222 Vital Signs: Date Time Temp Pulse Resp B/P B/P Pulse O2 O2 Flow FiO2 Mean Ox Delivery Rate 09/01 1105 [...] 132/63 90 97 04/09 2100 139/64 92 / 2059 89 10 96 / 2000 92 14 167/77 111 99 08/31 1929 98.3 94 16 151/69 96 100 Room air 08/31 1900 96 151/69 99 98 / 1835 97 14 180/85 122 99 / 1804 15 08/31 1800 95 184/86 124 99 04/09 1620 97.5 95 16 195/88 0.0 99 04/09 1435 97.9 90 14 150/70 98 04/09 1430 98.1 89 14 147/69 98 04/ 1425 97.8 90 15 157/83 99 / 1419 98.3 90 14 155/68 90 24 hour I O ending at 0700: 09/01 0700 08/31 1900 Intake Total 400 Output Total Balance 400 Intake, IV 50 Intake, 350 Packed Cells Number 2 Bowel Movements PATIENT WEIGHT: Weight (lb): 154Weight (oz): 1.65Weight (kg): 69.900 Antibiotic start date:Antibiotic: clindamycin Start Date: 08/18-08/25 Antibiotic: Vancomycin Start Date: 08/18-08/25 Antibiotic: TeflaroStart Date:08/25-08/27 Antibiotic: daptomycin Start Date:08/25 Antibiotic: Merrem Start Date:08/27 Physical ExamGeneral appearance: alert, awake, orientedWound/incision: Location:right BKAHead/Eyes: atraumatic, normocephalicNeck: supple/no meningismus, no JVDCardiovascular: normal heart sounds, regular rate rhythm, no murmurRespiratory: clear to auscultation, aerating well, symmetric expansionAbdomen: non-tender, soft, no distentionGenitourinary: urinary catheter ( on CBI)Extremities: edema, right BKANeuro/DIRECTOR OPERATING ROOM: alert, 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 Considered stroke alert: noSkin: lesions, no rashPsychiatry: normal affect, normal mood ResultsFindings/Data:Laboratory Tests 09/01 09/01 09/01 08/31 08/31 1104 0704 0345 1916 1618Chemistry POC Glucose (70 - 110 MG/DL) 118 H 145 H 176 H 163 H Total Creatine Kinase (46 - 171 79Units/L) 08/31 1240 Chemistry POC Glucose (70 - 110 MG/DL) 76 Laboratory Tests 08/31 1810 Hematology Hgb (12.5 - 16.9 g/dL) 9.1 L Hct (37.5 - 50.7 %) 28.2 L Laboratory Tests 09/01 0852 Serology SARS-CoV-2 Ag (Rapid) (Negative) Negative Laboratory Tests: 09/01 09/01 09/01 09/01 08/31 1104 0852 0704 0345 1916Chemistry POC Glucose (70 - 110 MG/DL) 118 H 145 H 176 H Total Creatine Kinase (46 - 171 Units/L) 79Serology SARS-CoV-2 Ag (Rapid) (Negative) Negative 08/31 08/31 08/31 08/31 08/31 1810 1618 1240 1203 0714 Chemistry POC [...] % (Auto) (14.0 - 32.0 %) 16.8 [place] % (Auto) (4.8 - 9.0 %) 4.8 Eos % (Auto) (0.3 - 3.7 %) 1.6 Baso % (Auto) (0.0 - 2.0 %) 0.2 Neut # (Auto) (2.0 - 7.6 x10 3/uL) 6.63 Lymph # (Auto) (1.0 - 3.8 x10 3/uL) 1.46 [place] # (Auto) (0.1 - 0.8 x10 3/uL) 0.42 Eos # (Auto) (0.0 - 0.2 x10 3/uL) 0.14 Baso # (Auto) (0.0 - 0.2 x10 3/uL) 0.02 Abs Immat Gran (auto) (0.00 - 0.03 x10 3/uL) 0.03 Add Manual Diff NO Immature Gran % (0.0 - 2.0 %) 0.3 Nucleated RBC % (0 - 0 %) 0.0 Nucleated RBCs # (Man) (0.0 - 0.1 x10 3/uL) 0.00 Medication(s) Ordered:Anti-Infective Agents Sig/Jan Start time Last Medication Dose [...] Sodium 5,000 UNIT Q8HR 08/18 0600 AC 09/01 SUBQ 09/17 0559 0606 Cardiovascular Drugs [...] 1 MG Q3H PRN PRN 08/28 1815 AC 09/01 IV 09/02 1814 0804 Hydromorphone HCl [...] ML BID 09/01 2100 AC IV 10/01 205 Sodium Chloride 10 ML ASDIR PRN 09/01 [...] Lispro 5 UNIT AC 08/30 0730 AC 09/01 SUBQ 09/29 0729 0759 Insulin Human Lispro 0 AC HS 08/20 1630 AC 08/28 SUBQ 09/19 1629 1319 Glucagon 1 MG ASDIR PRN 08/20 1530 AC IM 09/19 1529 Local Anesthetics (Parenteral) Sig/Jan Start time Last Medication Dose Route Stop Time Status Admin Lidocaine 1 PATCH DAILY 08/29 1230 AC 09/01 TOPICAL 09/28 1229 0757 Portions of this section were scribed by Jill Quintero on 09/01/22 at 1215 Treatment Prophylaxis Treatment ProphylaxisLines: peripheralCVC/PICC documentation:The data below has been imported from nursing documentation. Any exceptions have been noted below under Provider comments. CVC/PICC insertion date/time: Provider comments on imported nursing data: [] Portions of this section were scribed by Jill Quintero on 09/01/22 at 1215 Diagnosis, Assessment PlanFree Text A P:Assessment: *MRSA bacteremia-Initial blood cultures from 08/18/2022 positive for MRSA in 2 out of 2 sets.-Repeat blood cultures 08/21/2022 are already positive for MRSA in 2 out of 2 sets, suggesting persistent high-grade bacteremia.-TTE 08/18/2022 negative for any obvious vegetations.-08/28 neg*Severe sepsis due to above*Right lower extremity necrotizing fasciitis-MRI of foot (+)Ve for osteomyelitis-s/p debridement on 08/19: cx grew MRSA*DKA*Prostatic abscess-s/p transrectal aspiration and unroofing on 08/26-cx MRSA, citrobacter (r-cefazolin) Enterococcus raffinosus (S-amp,pcn, vancomycin), bacteriodes*ERIKA*Hyponatremia*Diabetic neuropathy*Diabetes mellitus type 2*Hypertension Plan:08/25-Discussed the possibility of amputation with patient and family at bedside -Recommend JIMENA. -Repeat blood cultures x2 again today.-Continue to repeat serial blood cultures till bacteremia clears. -D/C clindamycin and vancomycin. -start on DAptomycin and Teflaro-check urine cx Discussed with Dr. Du about MRI report 08/26-plan for transrectal aspiration of abscess today-repeat blood cx are still (+)Ve; will repeat blood cx tomorrow-cont on daptomycin and Teflaro day #2-Pt needs a JIMENA r/o endocarditis as pt has high grade persistent bacteremia-plan for Right BKA on 08/28 4/-s/p transrectal aspiration and unroofing of abscess; cx GNR; will follow- repeat blood cx today--cont on daptomycin and Teflaro day #3-Pt needs a JIMENA r/o endocarditis as pt has high grade persistent bacteremia-plan for Right BKA on 08/28 08/28s/p right BKA-repeat blood cx sent today-cont on Daptomycin day #4 -NEeds a JIMENA r/o endocarditis-prostate abscess: Coag (+)Ve staph, citrobacter and Enterococcus; on Merrem day#2 4/7follow repeat blood cx from 08/28; pt need atleast 14 days from neg bloodcx needs a JIMENA r/o endocarditis; if (+)Ve need 6 weeks , if not able to do willneed4 weeks-prostate abscess cx MRSA,citrobacter, Enterococcus; cont on Merrem and Daptomycin until cx are final day#3 out of 2-3 weeks 09/01- blood cx from 08/28 neg-pending a JIMENA; discussed with [facility] about doing a JIMENA; if (+)(Ve will needabx for 6 weeks endocarditis-change Merrem to Cefepime and Daptomycin to Vancomycin ; will need 28 days for treatment for prostate abscess til 09/24 Portions of this section were scribed by Jill Quintero on 09/01/22 at 1215 at 0859 RPT #:[id number] OF REPORTPRProgress [id number]:15:[id number] able for patient [id number]:00:07 [facility] 2022-09-01 11:35:00 [id number] 49+[id number] fWcEynrvlUeahxBG4B/[id number]:35:00 [facility] [facility] HospitalPharmacy Prog.Note-VancomycinREPORT#:[id number] REPORT STATUS: SignedDATE:09/01/22 TIME: 1135 PATIENT: KARMA ROWLAND UNIT #: [id number]#: [id number] [address] [birth year] AGE: 56 SEX: M ATTEND: Wilbert Ramires [facility] AUTHOR: Willie Rivera [facility] * ALL edits or amendments must be made on the electronic/computer document * See AddendumVancomycin Vancomycin Medication TherapyGoal: AUC 400-600 mg*hr/LIndication for treatment:Empiric (now confirmed foot infection and bacteremia)Site of infection: knownCurrent therapy:CEFEPIME AND VANCOMYCINDay of therapy:1Weight: Actual weight (kg): 69.9VS and I/O:Vital Signs Date Temp Pulse Resp B/P B/P Mean Pulse Ox FiO2 08/29-09/01 97.5-98.6 78-99 10-22 110-195/56-88 0.0-124 90-100 72 hours ending at 0700 09/01 0708/31 1900Intake 400 270.00 1020.00TotalOutput 500 750 4975TotalBalance 400 -500 -480.00 -3955.00 Intake, IV 50 30.00 80.00Intake, 240 240OralIntake, 400OralSupplementIntake, 300OtherIntake, 350PackedCellsNumber 2 2 1BowelMovementsOutput, 0DrainageOutput, 500 750 4975Urine 72 Hour I O Total 09/01 0708/31 07 Intake Total 400 1290.00 Output Total 500 5725 Balance 400 -500 -4435.00 Labs:Laboratory Test : 08/31 08/30 0642 0545 Chemistry BUN (7 - 18 mg/dL) 29 H 33 H Creatinine (0.6 - 1.3 mg/dL) 1.2 1.3 Hematology WBC (4.5 - 11.0 x10 3/uL) 8.7 12.6 H Drug admin history: Lab Lab Level SCr Info Drawer In Stitch Bonding Machine Med Dose Interaction/Dialysis Date/Time Date/Time Notes: Treatment plan: consult, initiation of therapyRationale:HPI: PT is a 56yr old male with history of diabetes mellitus type 2, hypertension who was admitted with altered mental status and right-sided foot infection. According to him, he noticed a blister on his right foot around 3 days prior to presentation on 08/18. His foot got progressively more swollen anderythema extended proximally to his lateral foot and ankle. CT abdomen and pelvis with contrast is concerning for possible prostate abscess. CT of lower extremity without contrast shows extensive soft tissue edema with mottled gas inthe subcutaneous and intramuscular compartments of the foot, compatible with gas-forming infection. Patient's blood cultures have come back positive for MRSA in 2 out of 2 sets. PT has had persistent (+)Ve cx for MRSA 08/18- 08/22. He underwent a debridement of his foot on 08/19 and cx grew MRSA. PT was started onVancomycin and clindamycin on 08/18. His MRI showed a prostate abscess. 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 Patient is s/p ICU stay with merrem/daptomycin. ID adjusting regimen to cefepime/vancomycin. Pharmacy consulted todose vancomycin. Consulting provider: Dr. Padillaication: bacteremiaGoal: AUC 400-600 AP:afebrile, WBC 8.7 (08/31), BUN 29, SCr 1.2, eCrCl 66 ml/min. UOP 1325 ml/24hrs.Micro: 08/26 prostate abscess: C farmeri, MRSA, E raffinosus. 08/18, 08/19, 08/21,08/22, 08/25 blood MRSRA. 08/28 blood NGTD. Imaging: JIMENA planned.Regimen: Day 1. Patient received daptomycin on 08/31. Will skip loading dose ofvancomycin and initiate maintenance dose at the time next daptomycin dose was due. Initiate 1gm vancomycin iv q24h. Monitoring: May take longer to achieve steady state since no load given. Plan for peak and trough after 4th dose for AUC calculations. Goal 400-600.Pharmacy will monitor and adjust dose as needed. Thanks for the consult. at 1142 Addendum 1: 09/02/22 0840 by Willie Rivera [facility] afebrile, no CBC drawn today , SCR 1.2, eCrCl 61 ml/min. UOP 2075 ml/24hrs. Day 2. Initiated on 1gm vancomycin iv q24h. Trough prior to 4th dose. Possible transition to AUC if renal continues to be stable. at 0837 RPT #:[id number] OF REPORTPRProgress [id number]:35:00G.[id number] able for patient khsfVSLNXSQQJOBPKX3943-65-86J72:42:37 [facility] 2022-09-01 11:08:00 [id number] NWj+BdgodqgqzJrrpLeh0Y/UUPu/J OJJcXDNW5dyir/UnI4xfclKR5Nw8158-85-08K27:08:00 [facility])Cardiology Progress NoteREPORT#:[id number] REPORT STATUS: SignedDATE:09/01/22 TIME: 1108 PATIENT: KARMA ROWLAND UNIT #: [id number]#: [id number] [address] [birth year] AGE: 56 SEX: M ATTEND: Wilbert Ramires [facility] AUTHOR: Rohit Benitez [employer] * ALL edits or amendments must be made on the electronic/computer document * Rohit Benitez 09/01/22 1108:SubjectiveChief complaint:foot infection Free Text Subj NotesFree Text Subj Notes:Patient seen and evaluated. Chart reviewed. No new symptoms, feeling well. Denies chest pain, palpitations, or shortness of breath. Telemetry: Sinus rhythm Objective GeneralVS/I O:24 hour I O ending at 0700: 09/01 0700 08/31 1900 Intake Total 400 Output Total Balance 400 Intake, IV 50 Intake, 350 Packed Cells Number 2 Bowel Movements Vital Signs: Date Time Temp Pulse Resp B/P B/P Pulse O2 O2 Flow FiO2 Mean Ox Delivery Rate 09/01 1105 [...] 04/10 0100 91 12 141/67 97 97 09/01 0032 98.1 90 16 138/66 90 99 04 0000 88 16 138/66 95 98 04/ 2300 87 13 134/64 92 98 04/ 2200 85 10 132/63 90 97 04/09 2100 139/64 92 04/ 2059 89 10 96 04/ 2000 92 14 167/77 111 99 04/ 1929 98.3 94 16 151/69 96 100 Room air 04/ 1900 96 151/69 99 98 04/ 1835 97 14 180/85 122 99 04/ 1804 15 04/ 1800 95 184/86 124 99 04/ 1620 97.5 95 16 195/88 0.0 99 04/ 1435 97.9 90 14 150/70 98 04/ 1430 98.1 89 14 147/69 98 04/ 1425 97.8 90 15 157/83 99 04/ 1419 98.3 90 14 155/68 90 04/ 1208 98.1 91 12 145/66 0.0 98 PATIENT WEIGHT: Weight (lb): 154Weight (oz): 1.65Weight (kg): 69.900 Medications:Active Meds + DC'd Last 24 HrsVancomycin HCl (VANCOMYCIN HCL) 1,000 MG Q24H IV Sodium Chloride (SODIUM CHLORIDE 0.9%) 250 MLCefepime HCl (MAXIPIME) 1 GM Q6H IV Sodium Chloride (SODIUM CHLORIDE) 10 MLMiscellaneous Information (VANCOMYCIN PHARMACY TO DOSE) 1 EACH ASDIR IV (CKD) Hydralazine HCl (APRESOLINE) 10 MG Q6H PRN PRN IV Sodium Polystyrene Sulfonate (KAYEXELATE) 30 GM ONCE ONE PO (DC) Insulin Glargine (Lantus/Semglee) 15 UNIT BEDTIME SUBQ Insulin Human Lispro (HUMALOG) 5 UNIT AC SUBQ Lidocaine (LIDODERM) 1 PATCH DAILY TOPICAL Hydromorphone HCl (DILAUDID) 1 MG Q3H PRN PRN IV Hydromorphone HCl (DILAUDID) 0.5 MG Q3H PRN PRN IV Meropenem (MEROPENEM) 500 MG Q6H IV (DC) Sterile Water (WATER FOR INJECTION) 10 MLDaptomycin (CUBICIN 500MG) 700 MG Q24H IV (DC) Sodium Chloride (SODIUM CHLORIDE 0.9%) 50 MLLorazepam (ATIVAN) 1 MG ONCE PRN IV Sodium Chloride (SODIUM CHLORIDE) 0 ASDIR PRN IV Insulin Human Lispro (HUMALOG) 0 AC HS SUBQ Dextrose/Water (DEXTROSE 10% IN WATER) 125 ML ASDIR PRN IV (CKD) Dextrose/Water (DEXTROSE 10% IN WATER) 250 ML ASDIR PRN IV (CKD) Glucagon (GLUCAGON) 1 MG ASDIR PRN IM Dextrose/Water (Dextrose 10% 1,000 mL) 1,000 ML ASDIR IV Acetaminophen (TYLENOL) 650 MG Q6H PRN PRN PO Bisacodyl (DULCOLAX) 10 MG DAILY PRN PRN RECTAL Docusate Sodium (COLACE) 100 MG Q12H PRN PRN PO Ondansetron HCl (ZOFRAN) 4 MG Q6H PRN PRN IV Heparin Sodium (HEPARIN 5000 UNITS/ML) 5,000 UNIT Q8HR SUBQ Physical ExamGeneral appearance: alert, awake, orientedNeck: no bruit/NL carotids, no JVDCardiovascular: CV assessment: abnormal S1/S2, regular rate and rhythm, no ectopyRespiratory: clear to auscultation, no distressLower extremity: LE assessment: edemaNeuro/DIRECTOR OPERATING ROOM: alert, oriented X 3 Considered stroke alert: noWound/incision: Location:right bkaPsychiatry: normal affect, normal judgment/insight, normal mood ResultsFindings/Data:Laboratory Tests 09/01 09/01 08/31 08/31 08/31 0704 [...] Diagnosis, Assessment Plan Free Text DxA P NotesFree Text DxA P Notes:Impression: 1. Preop eval/cardiac clearance2. Infected right foot gas gangrene3. DKA4. Sepsis5. Hypertension 6. Anemia Recommendation: Patient presented for evaluation of altered mental status, weakness and elevatedblood sugar. Diagnosed with DKA and sepsis. 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 Known cardiac history of hypertension and hyperlipidemia. Denies prior history of CAD, CHF or arrhythmia. EKG abnormal, NSR with anterior infarct. Vital signs stable. No prior cardiac work-up. -Check echocardiogram-Monitor telemetry for arrhythmia-Monitor blood pressure trend-Wound care and IV antibiotic therapy-Supportive care 08/19: Patient doing better postop, blood pressure control, currently in sinus rhythm, lower extremity artery Doppler negative for any significant PAD, continue current management from primary team and podiatry service, continue monitor on telemetry for arrhythmia postop, supportive care, discussed with patient and family as well as RN, will follow. 08/21: Patient overall doing well, awake and alert today. Blood pressure well controlled. Currently in sinus rhythm to sinus tachycardia, will continue to monitor. Echocardiogram shows LVEF of 55 to 69%, no regional wall motion abnormalities, grade 1 diastolic dysfunction, and mildly dilated LA. continue antibiotic therapy and wound care. Supportive care. Plan of care discussed with patient, RN and Dr. Pahram. 08/22: No Significant changes from cardiac standpoint. Vital signs stable. Telemetry monitoring reviewed, sinus rhythm to sinus tachycardia. We will continue monitor, sinus tachycardia likely related to underlying infection. Continue wound care and antibiotic therapy. Supportive care. Plan of care discussed with patient, RN and Dr. Parham. 08/23: Stable cardiac status. Blood pressure and heart rate well controlled. Continue monitor telemetry. Continue wound care. Plan to transfer to floor. Supportive care. Plan of care discussed with patient, RN and Dr. Parham. 08/24: Patient overall doing well, remains stable from cardiac standpoint. Blood pressure and heart rate well controlled. No new events noted on telemetrymonitoring. Remains in sinus rhythm by physical examination. Continue wound care. Supportive care. Plan of care discussed with patient, RN and Dr. Parham. 08/25: Remain stable from cardiac standpoint. Blood pressure well controlled. Currently in sinus rhythm by physical examination. Possible plan for another wound debridement today. Pain management and supportive care. Plan of care discussed with patient, RN and Dr. Parham. 08/26: Patient remains in sinus rhythm. Blood pressure well controlled. Plan for aspiration of prostatic cyst today. Plan for right BKA on . We will continue monitor patient postoperatively. Continue antibiotic therapy. Supportive care. Plan of care discussed with patient, RN and Dr. Parham. 08/27: Patient doing well status post aspiration of prostatic abscess and TURP. Currently on continuous bladder irrigation. Hemodynamically stable. Blood pressure and heart rate well controlled. Remains in normal sinus rhythm. Plan for right BKA tomorrow. Cleared from cardiac standpoint to proceed with plannedsurgery. Supportive care. Plan of care discussed with patient, RN and Dr. Parham. 08/28: Stable cardiac status. Plan for right BKA today. Continue antibiotic therapy and wound care. Will monitor patient postoperatively for arrhythmia. Continue monitor telemetry. Pain management and supportive care. Plan of care discussed with RN and Dr. Parham. 08/29: Patient doing well, blood pressure controlled, s/p right BKA, stable cardiac status, continue current management, will follow. 09/01: Patient with ongoing bacteremia, ID recommend JIMENA to rule out endocarditis. Continue antibiotic therapy and wound care. Blood pressure and heart rate well controlled. Remains in normal sinus rhythm. Plan for JIMENA tomorrow, further recommendation will be based on findings. Supportive care. Plan of care discussed with patient, RN and Dr. Parham. Napoleon Parham 09/06/22 1631:Diagnosis, Assessment PlanAdditional comments:Patient was seen and examined at bedside, agree with above assessment and plan as documented by nurse practitioner with modifications. We will proceed with JIMENA tomorrow. Continue supportive care. Will follow. at 1811 at 1637 [facility] #:[id number] OF REPORTPRProgress [id number]:08:00G.[id number] able for patient qmhtGRSOEMNAEYDIHF5527-96-69T06:12:06 [facility] 2022-09-01 10:17:00 [id number] Qsa/Ggl9wcWAx688owuOnvZiANrJz [id number]0073-53-18R21:17:00 [facility] ([facility])Hospitalist Progress NoteREPORT#:[id number] REPORT STATUS: SignedDATE:09/01/22 TIME: 1017 PATIENT: KARMA ROWLAND UNIT #: [id number]#: [id number] [address] [birth year] AGE: 56 SEX: M ATTEND: Wilbert Ramires MDADM AUTHOR: Tessie Junior * ALL edits or amendments must be made on the electronic/computer document * SubjectiveChief complaint:AMS and right foot infection. s/p extensivedebridement. s/p BKA. pain controlled Objective GeneralVS/I O:Vital Signs: Date Time Temp Pulse Resp B/P B/P Pulse O2 O2 Flow FiO2 Mean Ox Delivery Rate 09/01 1105 [...] 132/63 90 97 04/09 2100 139/64 92 / 2059 89 10 96 / 2000 92 14 167/77 111 99 / 1929 98.3 94 16 151/69 96 100 Room air 08/31 1900 96 151/69 99 98 / 1835 97 14 180/85 122 99 08/31 1804 15 08/31 1800 95 184/86 124 99 08/31 1620 97.5 95 16 195/88 0.0 99 24 hour I O ending at 0700: 09/01 0700 08/31 1900 Intake Total 400 Output Total Balance 400 Intake, IV 50 Intake, 350 Packed Cells Number 2 Bowel Movements PATIENT WEIGHT: Weight (lb): 154Weight (oz): 1.65Weight (kg): 69.900 Medications:Active Meds + DC'd Last 24 HrsSodium Chloride (SODIUM CHLORIDE) 10 ML BID IV Benzocaine/Butamben/Tetracaine HCl (CETACAINE) 1 APPLIC ASDIR PRN MM (CKD) Flumazenil (ROMAZICON) 0.2 MG ASDIR PRN IV Midazolam HCl (VERSED) 2 MG ASDIR PRN IV Naloxone HCl (NARCAN) 0.4 MG ASDIR PRN IV Vancomycin HCl (VANCOMYCIN HCL) 1,000 MG Q24H IV Sodium Chloride (SODIUM CHLORIDE 0.9%) 250 MLLidocaine HCl (LIDOCAINE 1% 5ML) 5 ML ONCE ONE LOCAL (DC) Sodium Chloride (SODIUM CHLORIDE) 10 ML ASDIR PRN IV Cefepime HCl (MAXIPIME) 1 GM Q6H IV Sodium Chloride (SODIUM CHLORIDE) 10 MLMiscellaneous Information (VANCOMYCIN PHARMACY TO DOSE) 1 EACH ASDIR IV (CKD) Hydralazine HCl (APRESOLINE) 10 MG Q6H PRN PRN IV Insulin Glargine (Lantus/Semglee) 15 UNIT BEDTIME SUBQ Insulin Human Lispro (HUMALOG) 5 UNIT AC SUBQ Lidocaine (LIDODERM) 1 PATCH DAILY TOPICAL Hydromorphone HCl (DILAUDID) 1 MG Q3H PRN PRN IV Hydromorphone HCl (DILAUDID) 0.5 MG Q3H PRN PRN IV Meropenem (MEROPENEM) 500 MG Q6H IV (DC) Sterile Water (WATER FOR INJECTION) 10 MLDaptomycin (CUBICIN 500MG) 700 MG Q24H IV (DC) Sodium Chloride (SODIUM CHLORIDE 0.9%) 50 MLLorazepam (ATIVAN) 1 MG ONCE PRN IV Sodium Chloride (SODIUM CHLORIDE) 0 ASDIR PRN IV Insulin Human Lispro (HUMALOG) 0 AC HS SUBQ Dextrose/Water (DEXTROSE 10% IN WATER) 125 ML ASDIR PRN IV (CKD) Dextrose/Water (DEXTROSE 10% IN WATER) 250 ML ASDIR PRN IV (CKD) Glucagon (GLUCAGON) 1 MG ASDIR PRN IM Dextrose/Water (Dextrose 10% 1,000 mL) 1,000 ML ASDIR IV Acetaminophen (TYLENOL) 650 MG Q6H PRN PRN PO Bisacodyl (DULCOLAX) 10 MG DAILY PRN PRN RECTAL Docusate Sodium (COLACE) 100 MG Q12H PRN PRN PO Ondansetron HCl (ZOFRAN) 4 MG Q6H PRN PRN IV Heparin Sodium (HEPARIN 5000 UNITS/ML) 5,000 UNIT Q8HR SUBQ Physical ExamHead/Eyes: normocephalicENT: moist mucosal membranesNeck: no JVDCardiovascular: regular rate rhythm, no heaveRespiratory: aerating well, clear to auscultation, symmetric expansion, no distressAbdomen: non-tender, normal bowel sounds, soft, no distentionGenitourinary: no bladder distentionExtremities: R foot in dressingNeuro/DIRECTOR OPERATING ROOM: alert, oriented X 3, 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 Considered stroke alert: noSkin: no rashPsychiatry: normal affect, normal judgment/insight, normal mood ResultsFindings/Data:Laboratory Tests 09/01 09/01 09/01 08/31 08/31 1104 0704 0345 1916 1618Chemistry POC Glucose (70 - 110 MG/DL) 118 H 145 H 176 H 163 H Total Creatine Kinase (46 - 171 79Units/L) Laboratory Tests 08/31 1810 Hematology Hgb (12.5 - 16.9 g/dL) 9.1 L Hct (37.5 - 50.7 %) 28.2 L Laboratory Tests 09/01 0852 Serology SARS-CoV-2 Ag (Rapid) (Negative) Negative Diagnosis, Assessment Plan Free Text DxA P NotesFree text DxA P notes:DKADM 2, poorly controlledsevere gas gangrene, right foot/necrotizing fascitis - s/p BKAMRSA bacteremiaAKIsevere hyponatremia likely due to combination of severe hyperglycemia and dehydration from DKAsepsis due to foot infectionDM neuropathyHTNanemia, acute due to blood lossleft calf hematomaprostatic abscess with Citrobacter and enterococcus Plans: - admit to ICU - continue [...] planning for I D today. Surgery on standby if needed to further debride his lower leg vs amputation. - WBC improving - will type and cross for blood and transfuse if less than 7 gms - d.w at [...] wean off insulin drip. Subq insulin and sliding scale. 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 will likely need wound vac at some point - off [...] transfuse blood for anemia. no overt blood loss - continue IV antibiotics - mobilize - pulse lavage to wound. ? wound vac - continue to monitor blood sugars - floor transfer - d/w 08/24/2022 - follow hgb and transfuse as needed - IV antibiotics - anesthesia consult for MRI - blood sugars ok - pulse lavage - await podiatry eval for wound care - ? wound vac - d.w at bedside 08/25/22Continue abx (Dapto and Teflaro) as per IDUpdated Urology on MRI results, Dr. Du will review images and discuss with family for possible prostate/seminal vesicle abscessCont wound care as per Podiatry, may have debridement today BP and BS well controlled K+ high, repeat levelHgb 7.3 stableDiscussed with at bedside 08/26/2022 - hgb low. will transfuse 2 units - d.w Dr. Pedersen - patient has lost so much tissues in his foot that his potential for wound closure and usability of his foot is poor. Recommendations made to proceed with BKA - continue to monitor blood sugars - IV antibitoics - wound care - urology planning for aspiration of prostatic cyst seen on MRI. PSA normal - OOB 08/27/22s/p transfusion planned for BKA IV antibiotics Wound care DM - managed with insulin DVT prophylaxis 08/28/2022 - noted left leg swelling and pain - patient on Heparin SQ for VTE. will order stat venous US - planning for right BKA today - continue IV antibiotics per ID - follow blood sugars closely - will need PT/OT and possible rehab post surgery - d/w at bedside 08/29/2022 - US [...] and transfuse if hgb less than 7 gms - Heparin SQ for VTE 08/30/22 s/p BKA. doing well IV antibiotics PT/ OT possible rehab monitor hb transfer to floor / IMCU 08/31/2022 S/p BKA doing okay pain is controlledIV antibiotic therapyPT OTNoted hemoglobin low at 6.8 will transfuse monitor PRBCPotassium was high as well give KayexalateRecheck lab work later today discussed with nurse.If stable overall in the next 24 hours can be transferred/downgraded to regular floor.DM control. 09/01/22VSS on RAlabs pending- hyperkalemia yesterday -s/p kayexalate I7Hqepyhcs with Vanc and Cefepine per IDNeeds JIMENA prior to discharge Cardiology on board. Approved to rehab, can transfer after JIMENA and BMP at 1543 RPT #:[id number] OF REPORTPRProgress [id number]:17:00G.[id number] able for patient ijbiFOKCCSPBCFXWNU2929-82-52L64:43:44 [facility] 2022-09-01 10:14:00 [id number] L+lc6hrNCAgwm+PuS86cvaom3r78v cOEQjScNbh64IFfqffFFpMCteA92202-21-08M15:14:00 [facility] Discharge SummaryREPORT#:[id number] REPORT STATUS: SignedDATE:09/01/22 TIME: 1014 PATIENT: KARMA ROWLAND UNIT #: [id number]#: [id number] [address] [birth year] AGE: 56 SEX: M ATTEND: Wilbert Ramires MDADM AUTHOR: Tessie Junior * ALL edits or amendments must be made on the electronic/computer document * General InformationDischarge date: 09/01/22Discharge diagnosis:MRSA bacteremia/spesisSevere Gas gangrene right foot and right ankle associated with osteomyelitis andnecrotizing fasciitisS/p surgical debridement and washoutS/p Right BKA DM 2, poorly controlledHyperkalemiaHospital course:DKADM 2, poorly controlledsevere gas gangrene, right foot/necrotizing fascitis - s/p BKAMRSA bacteremiaAKIsevere hyponatremia likely due to combination of severe hyperglycemia and dehydration from DKAsepsis due to foot infectionDM neuropathyHTNanemia, acute due to blood lossleft calf hematomaprostatic abscess with Citrobacter and enterococcus Plans: - admit to ICU - continue [...] planning for I D today. Surgery on standby if needed to further debride his lower leg vs amputation. - WBC improving - will type and cross for blood and transfuse if less than 7 gms - d.w at [...] wean off insulin drip. Subq insulin and sliding scale. 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 will likely need wound vac at some point - off [...] transfuse blood for anemia. no overt blood loss - continue IV antibiotics - mobilize - pulse lavage to wound. ? wound vac - continue to monitor blood sugars - floor transfer - d/w 08/24/2022 - follow hgb and transfuse as needed - IV antibiotics - anesthesia consult for MRI - blood sugars ok - pulse lavage - await podiatry eval for wound care - ? wound vac - d.w at bedside 08/25/22Continue abx (Dapto and Teflaro) as per IDUpdated Urology on MRI results, Dr. Du will review images and discuss with family for possible prostate/seminal vesicle abscessCont wound care as per Podiatry, may have debridement today BP and BS well controlled K+ high, repeat levelHgb 7.3 stableDiscussed with at bedside 08/26/2022 - hgb low. will transfuse 2 units - d.w Dr. Pedersen - patient has lost so much tissues in his foot that his potential for wound closure and usability of his foot is poor. Recommendations made to proceed with BKA - continue to monitor blood sugars - IV antibitoics - wound care - urology planning for aspiration of prostatic cyst seen on MRI. PSA normal - OOB 08/27/22s/p transfusion planned for BKA IV antibiotics Wound care DM - managed with insulin DVT prophylaxis 08/28/2022 - noted left leg swelling and pain - patient on Heparin SQ for VTE. will order stat venous US - planning for right BKA today - continue IV antibiotics per ID - follow blood sugars closely - will need PT/OT and possible rehab post surgery - d/w at bedside 08/29/2022 - US [...] and transfuse if hgb less than 7 gms - Heparin SQ for VTE 08/30/22 s/p BKA. doing well IV antibiotics PT/ OT possible rehab monitor hb transfer to floor / IMCU 08/31/2022 S/p BKA doing okay pain is controlledIV antibiotic therapyPT OTNoted hemoglobin low at 6.8 will transfuse monitor PRBCPotassium was high as well give KayexalateRecheck lab work later today discussed with nurse.If stable overall in the next 24 hours can be transferred/downgraded to regular floor.DM control.Pt. condition on discharge: fair Free Text DxA P NotesFree text DxA P notes:DKADM 2, poorly controlledsevere gas gangrene, right foot/necrotizing fascitis - s/p BKAMRSA bacteremiaAKIsevere hyponatremia likely due to combination of severe hyperglycemia and dehydration from DKAsepsis due to foot infectionDM neuropathyHTNanemia, acute due to blood lossleft calf hematomaprostatic abscess with Citrobacter and enterococcus Plans: - admit to ICU - continue [...] planning for I D today. Surgery on standby if needed to further debride his lower leg vs amputation. - WBC improving - will type and cross for blood and transfuse if less than 7 gms - d.w at [...] wean off insulin drip. Subq insulin and sliding scale. endo following - pain controlled - will likely need wound vac and alf IV antibiotic therapy - d/w at bedside - PT/OT 08/21/2022 - continue IV antibitoics - wound care with pulse lavage. will likely need wound vac at some point - off [...] transfuse blood for anemia. no overt blood loss - continue IV antibiotics - mobilize - pulse lavage to wound. ? wound vac - continue to monitor blood sugars - floor transfer - d/w 08/24/2022 - follow hgb and transfuse as needed - IV antibiotics - anesthesia consult for MRI - blood sugars ok - pulse lavage - await podiatry eval for wound care - ? wound vac - d.w at bedside 08/25/22Continue abx (Dapto and Teflaro) as per IDUpdated Urology on MRI results, Dr. Du will review images and discuss with family for possible prostate/seminal vesicle abscessCont wound care as per Podiatry, may have debridement today BP and BS well controlled K+ high, repeat levelHgb 7.3 stableDiscussed with at bedside 08/26/2022 - hgb low. will transfuse 2 units - d.w Dr. Pedersen - patient has lost so much tissues in his foot that his potential for wound closure and usability of his foot is poor. Recommendations made to proceed with BKA - continue to monitor blood sugars - IV antibitoics - wound care - urology planning for aspiration of prostatic cyst seen on MRI. PSA normal - OOB 08/27/22s/p transfusion planned for BKA IV antibiotics Wound care DM - managed with insulin DVT prophylaxis 08/28/2022 - noted left leg swelling and pain - patient on Heparin SQ for VTE. will order stat venous US - planning for right BKA today - continue IV antibiotics per ID - follow blood sugars closely - will need PT/OT and possible rehab post surgery - d/w at bedside 08/29/2022 - US [...] and transfuse if hgb less than 7 gms - Heparin SQ for VTE 08/30/22 s/p BKA. doing well IV antibiotics PT/ OT possible rehab monitor hb transfer to floor / IMCU 08/31/2022 S/p BKA doing okay pain is controlledIV antibiotic therapyPT OTNoted hemoglobin low at 6.8 will transfuse monitor PRBCPotassium was high as well give KayexalateRecheck lab work later today discussed with nurse.If stable overall in the next 24 hours can be transferred/downgraded to regular floor.DM control. Med Rec Med RecDischarge meds:Start taking the following new medications:HEPARIN SODIUM,PORCINE (HEPARIN SOD 1ML) 5,000 UNIT/ML VIAL 5,000 UNIT SUBCUTANEOUS EVERY 8 HOURS. Days = 14 Qty = 42 No Refills hydrALAZINE (APRESOLINE) 20 MG/ML AMPUL 10 MILLIGRAM INTRAVENOUS EVERY 6 HOURS NEEDED. as needed for SBP GREATER THAN 160 Days = 10 No Refills DOCUSATE SODIUM (COLACE) 100 MG CAP 100 MILLIGRAM ORAL EVERY 12 HR NEEDED. as needed for CONSTIPATION Days = 14 No Refills BISACODYL (DULCOLAX) 10 MG SUPP.RECT 10 MILLIGRAM RECTAL. DAILY NEEDED. as needed for CONSTIPATION, SECOND LINE Days = 14 No Refills ONDANSETRON (ONDANSETRON) 4 MG/2 ML VIAL 4 MILLIGRAM INTRAVENOUS EVERY 6 HOURS NEEDED. as needed for N/V IF NOT ONPO DIET Days = 14 No Refills INSULIN GLARGINE (LANTUS) 100 UNIT/ML VIAL 15 UNIT SUBCUTANEOUS BEDTIME. Days = 14 No Refills INSULIN LISPRO (HumaLOG) 100 UNIT/ML VIAL 0 UNIT SUBCUTANEOUS BEFORE MEALS AND AT BEDTIME. Days = 14 No Refills Instructions: Check printout INSULIN LISPRO (HumaLOG) 100 UNIT/ML VIAL 5 UNIT SUBCUTANEOUS BEFORE MEALS. Days = 14 No Refills DAPTOmycin (CUBICIN) 500 MG VIAL 750 MILLIGRAM INTRAVENOUS EVERY 24 HOURS. Days = 7 No Refills MEROPENEM (MERREM) 500 MG VIAL 500 MILLIGRAM INTRAVENOUS EVERY 6 HOURS. Days = 3 No Refills ObjectiveVS/I OLast Documented: Result Date Time Pulse Ox 94 09/01 825 Pulse 80 09/01 825 B/P 153/72 09/01 08 B/P Mean 104 09/01 08 Resp 12 09/01 08 Temp 98.4 09/01 0708 O2 Delivery Room air 08/31 1928 O2 Flow Rate 7 08/28 1222 24 hour I O ending at 0700: 09/01 0700 08/31 1900 Intake Total 400 Output Total Balance 400 Intake, IV 50 Intake, 350 Packed Cells Number 2 Bowel Movements Head/Eyes: normocephalicENT: moist mucosal membranesNeck: no JVDCardiovascular: regular rate rhythm, no heaveRespiratory: aerating well, clear to auscultation, symmetric expansion, no distressAbdomen: non-tender, normal bowel sounds, soft, no distentionGenitourinary: no bladder distentionExtremities: R foot in dressingNeuro/DIRECTOR OPERATING ROOM: alert, oriented X 3, 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 Considered stroke alert: noSkin: no rashPsychiatry: normal affect, normal judgment/insight, normal mood ResultsFindings/Data:Laboratory Tests: 09/01 09/01 09/01 08/31 08/31 0852 0704 0345 1916 1810Chemistry POC Glucose (70 - 110 MG/DL) 145 H 176 H Total Creatine Kinase (46 - 171 79Units/L)Hematology Hgb (12.5 - 16.9 g/dL) 9.1 L Hct (37.5 - 50.7 %) 28.2 LSerology SARS-CoV-2 Ag (Rapid) (Negative) Negative 08/31 08/31 08/31 1618 1240 1203 Chemistry POC Glucose (70 - 110 MG/DL) 163 H 76 44 L Discharge Instructions PCPPCP follow-up:PCP: No Primary or Family Physician Discharge to: Inpatient Rehab FacilityAdditional Discharge Routines: NoneDiet: Diabetic at 1017 RPT #:[id number] OF REPORTDSDischarge [id number]:14:00G.[id number] ailable for patient [id number]:17:25 [facility] 2022-09-01 09:12:00 [id number]:12:00 [facility] ([facility])Rehab Preadmission ScreenREPORT#: REPORT STATUS:DATE:09/01/22 TIME: 911 PATIENT: KARMA ROWLAND UNIT #: ROOM: BED:: 63 AGE: 56 SEX: M ATTEND: Mj Vences MDPROJECTED ADM AUTHOR: Mj Vences MDREP SRV REP SRV TM: 09* ALL edits or amendments must be made on the electronic/computer document * IRF Preadmission Screen Information From [facility] documentation:The data set between the solid lines has been imported from [facility] documentation. PREADMISSION INFORMATION: DEMOGRAPHICS: Assessment date: 09/01/22Assessment time: 531Patient has an Advanced Directive: NoContent of advance directive/living will/plan of care: Copy of advance directive on chart: Referring physician[facility] care provider: NONE LISTEDConsulting physician(s): DR. VENCES REHAB DR. RAMIRES ATTENDING DR. CURTIS MEDICAL DR. LONDON MEDICAL DR. DU MEDICAL DR. LEROY SURGICAL DR. CHAPIN MEDICAL DR. David PARHAM CARDIOGLY DR. PEDERSEN MEDICAL DR. OSWALD SURGICALReferral contact name: RAYSHAWN SIMPSONRefjose alberto contact number: [phone] setting: Acute hospitalRoom number: 458 IMPAIRMENT GROUP: Impairment group: Amp bilat LE below knee Etiologic diagnosis: GAS GANGRENE RIGHT FOOT AND ANKLE REVIEW OF MED CONDITIONS: Date of onset: 08/18/22Current surgery date and type: 08/28/22 RIGHT BELOW KNEE AMPUTATION 08/19/22 irrigation and debridement right footActive comorbid conditions: POST OP ANEMIA, ERIKA, DM, HTN, DIABETIC NEUROPATHY, HLDPast medical and surgical history: DM 2 since age 33 DM neuropathy HTN hyperlipidemiaHad major surgery within 100 days of admission: YesRisk for medical/clinical complications: Anemia, Arrhythmia, BP fluctuation, Blood sugar fluctuation, Cardiac instability, Constipation, DVT, Depression, Electrolyte imbalance, Hypoxia, Incisional dehiscence, Infection, Injury d/t falls, Nutritional compromise, Pain, Renal insuff/failure, Skin breakdown, Respiratory insufficiency, Urinary retentionAcute hospital stay summary: 56 yo HAM with [...] enlarging and extending to his lateral foot andankle. He started feeling weak and nauseated. He was noted to have altered mentation and was brought to our ER. He was noted to be in DKA with Blood sugarsgreater than 600. He was seen by podiatry and surgery for BLE wounds and infection. He was treated in ICU for sepsis and DKA. He underwent incisional and excisional debridement of right foot and right ankle by podiatry. Patient also found to have prostate abscess underwent transrectal ultrasound aspiration of abscess and transurethral resection of prostate and unroofing of abscess by urology Dr. Du. Endocrinology treated the DKA and blood sugars much improved. Patient's right foot was not salvageable and patient underwent right BKA by Dr. [...] ankle. Patient hemodynamically stable and plans are christopher transferred to stepdown unit. He is on heparin subcu for VTE. After surgeryhe is now being mobilized by PT and OT. He is wearing a maxine-tech orthotic for right knee/BKA protection. Hemovac drain still in place. Prior to admission the patient was independent living in a single-story house with his spouse with a few steps up to front and back door. 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 is at bedside. Patient denies nausea, vomiting, fever, chills, chest pain,shortness of breath with dizziness. He is requiring IV Dilaudid for pain control. Mental status back to baseline. Pt is progressing slowly with therapy d/t weakness and pain, self care deficit, decreased endurance and balance, and decreased functional mobility. Pt requiring acute inpt rehab for multidisciplinary team of nursing, [...] in 6 Wt lbs 154.000 BMI SUPPORTING DIAGNOSTICS/LABS/RADIOLOGY/CARDIOLOGY: Date: 08/31/22 08/31/22 WBC: 8.7 HGB: 9.1 6.9 HCT: 28.2 21.7 Ca: 7.2 7.3 Na: 136 136 K+: 5.4 5.4 Glu: 163 129 M.01 BUN: 29 29 Creat: 1.2 1.2 Tot protein: Alb: PTT: PT: INR: PLT: 208 Additional labs: Cultures: 08/28/22 BLOOD NO GROWTH AFTER 72 HOURS 08/26/22 ABCESS MODERATE NUMBER OF GRAM POSITIVE COCCI RARE GRAM POSITIVE BACILLI MODERATE NUMBER OF WBC'S ORGANISM CITROBACTER FARMERI, ETEROCOCCUS RAFFINOSUS, STAPHAUREUS METHICILLIN RESIST 08/25/22 URINE YHHPVFRJDJDZ19/03/23 BLOOD COAG POS STAPHYLOCCUS 08/22/22 BLOOD GRAM POS COCCI/STAPH/METHICILLIN RESIST 08/18/22 WOUND/FOOT STAPH AUREUS/MRSAImagin08/28/22 FLUOROSCOPY RADIATION DOSE METRICS: Fluoroscopy time (seconds): seconds= 1.1 Number of fluoro spot images: images= 2 Reference air kerma (APOLONIA): 0.7 mGy FINDINGS: Procedural imaging: Fluoroscopic assistance was provided. Radiologist was not present duringthe procedure. Intraoperative review of these images was performed by the operating physician. Please refer to the procedure report for further details. Notes: Fluoroscopy supervised by facility personnel. See also separate procedure report. IMPRESSION: Fluoroscopy dosage documentation. See also separate procedure notes. 08/28/22 VENOUS DOPPLER IMPRESSION: 1. No evidence of venous thrombosis involvingleft lower extremity. 2. Approximately 8 x 2 x 1.3 cm complex fluid collection along the left upper calf probably representing a small hematoma. 08/21/22 PELVIS MRI IMPRESSION: 1. Markedly limited examination by motion artifact abdominal breathing, severely lowering sensitivity and specificity of the study. 2. Roughly 4.7 cm area of liquefaction in the left seminal vesicle suspicious for abscess, inseparable from the left posterolateral prostate capsule and peripheral zone. Recommend MR follow-up after antibiotic therapy to assess for evolution. 3. Normal size prostate with otherwise preserved transitional zone and right peripheral zone signal. 4. No pelvic adenopathy or free fluid. 5. Unremarkable bladder. 08/21/22 EXTREMITY MRI Impression: 1. Large areas of deep ulceration of the medial and lateral soft tissues of the hindfoot. 2. Findings compatible with osteomyelitis of the talus, calcaneus, and navicular bone. 3. Lobulated, ill-defined 3.2 x 9.7 x 1.7 cm fluid collection in the plantar musculature of the foot. 4. 1.2 x 1.9 x 0.6 cm dorsal skin blister of the forefoot. 08/19/22 EXTREMITY ARTERIAL IMPRESSION: No sonographicevidence for flow-limiting stenosis in the right lower extremity arterial system. 08/18/[address] IMPRESSION: Extensive soft tissue edema with mottled gas in the subcutaneous and intramuscular compartments of the foot compatible with gas-forming infection. Disease extends into the visualized distal leg. 08/18/22 ABD/PELVIS CT IMPRESSION: 3.3 cm hypodensity in the left posterior prostate or seminal vesicle. This could represent an abscess. Contrast-enhanced MRI of the pelvis wouldbe helpful for further evaluation. No acute intra-abdominal findings otherwise. 08/18/22 FOOT X RAY IMPRESSION: No acute osseous findings. No convincing evidence for osteomyelitis. MRI is more sensitivefor detecting osteomyelitis. 08/18/22 CXR IMPRESSION: Ill-definedsomewhat nodular opacity measuring 3.2 cm laterally in the right mid lung suspicious for rounded pneumonia given provided history, but underlying neoplasm can not be excluded. Followup radiographs are recommended after appropriate treatment in order to document complete resolution and excludean underlying process or neoplasm. Other supporting diagnostics: RESPIRATORY STATUS: Respiratory treatments: O2 liters per minute: Respiratory status: ROOM AIR NEUROLOGIC STATUS: Neurologic status: Alert, Oriented to person, Oriented to place, Oriented to timePatient's mood and behavior: AppropriateHand dominance: Right BOWEL/BLADDER: Continent of bladder for developmental age: YesNumber of bladder accidents in last 48 hours: Catheter type: Insertion date: Bladder aids: Bladder comment: Continent of bowel for developmental age: YesNumber of bowel accidents in last 48 hours: Date of last BM: 09/01/22Colostomy: Ileostomy: Bowel aids: DULCOLAX COLACEBowel comment: SKIN: Skin alteration: Present/Exists SKIN ALTERATION 1: Type: Surgical woundLocation: Generalized rightStage: Description: RIGHT BKA SKIN ALTERATION 2: Type: Location: Stage: Description: SKIN ALTERATION 3: Type: Location: Stage: Description: SKIN ALTERATION 4: Type: Location: Stage: Description: EATING/NUTRITIONAL: Nutritional intake: CONSISTENT CARB DIET, 5 CARB SERVINGS/MEALEating compensatory strategies: Medication administration: Medications whole, IV, Subcutaneous, Topicals REHAB NEEDS: Special rehabilitation needs: IV/PICC/CVC, Respiratory therapySpecial rehabilitation precautions: Diet, Safety/fall, Isolation contact, Non-weight bearing RLERehabilitation precaution detail: WEIGHT BEARING MRSA/ISOLATION FALLS PRO-TECH BRACE AT ALL TIMES FUNCTIONAL ASSESSMENT: FUNC. TASK PRIOR LOF CURRENT LOF EXPECTED LOF Bathing Independent Substantial/max asst Independent U.B. Dressing Independent Substantial/max asst Independent L.B. Dressing Independent Substantial/max asst Independent Bed/Ch Transf. Independent Total assistance Independent Toilet Transfer Independent Total assistance Independent Stairs Independent Total assistance Independent Locomotion Independent Total assistance Independent Locomotion prior device use: NoneDescription of prior level of locomotion: NO ADLocomotion current device: RW/FWWLocomotion current distance traveled without a rest break: NOT TESTEDDescription of current level of locomotion: NOT TESTEDDescription of expected level of locomotion: MOD IND WITH WALKER Language and Cognition: KINYARWANDA A 0 X 4Add'l functional comment: ROLLING MIN A SUP/SIT MOD A SIT/SUP MOD A SCOOTING MOD A SIT/STAND DEPENDENT Prior device use: NonePrior device use additional information: PRE-HOSPITAL: Pre-hospital services utilized: None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Education history: Return to work/school plan: YESMarital status: MarriedHobbies/leisure activities: Prior living situation: HomeLiving with: FamilyLiving with comment: SPOUSE ANTICIPATED DC PLAN/POST IRF: Primary support contact: DONTAE Callahan to patient: SPOUSEPhone number 1: [phone] number 2: Caregiver availability: Caregiver can provide: Patient/caregiver goals/preferences: Expected discharge destination: HomeExpected discharge physical layout: Onestory W/SEAT, Shower onlyNumber of external stairs: Number of internal stairs: Railing details: Grab bars location: Barriers to discharge: EnduranceOptions discussed with patient: YesOptions discussed with caregiver: YesPatient agrees with program requirements: Yes ACTIVITY TOLERANCE: Current treatment interventions: Occupational therapy, Physical therapy, Respiratory therapyPatient able to tolerate 3 hours of therapy a day: YesPatient able to tolerate 15 hours of therapy a week: Altered therapy schedule comment: ACUTE INPATIENT REHAB PLAN: Estimated length of stay in days: 17Anticipated services in acute inpatient rehab: Rehab nursing 15/12, manager agency,early childhood education worker, Occupational therapy, Physical therapy, Dietitian, Res[facility] therapyEs[facility] documents reviewed prior to admission decision: Acute History/Physical, Consult notes, Operative reports, Progress notes, Lab/diagnostics, Therapy notes, Vital signs, Other ancillary notes CRS ELECTRONIC SIGNATURE: CRS #1 electronic signature: OSCAR PAYNE credentials: RNDate: 09/01/22Time: 0729 CRS #2 electronic signature: NANCY credentials: Date: Time: CRS #3 electronic signature: NANCY credentials: Date: Time: Provider Pre-Admit SummaryAcute IP rehab admit: criteria metMD determinationBased upon my evaluation and review of the supporting assessment documentation and consultation with the preadmission outreach clinician, I have determined, prior to admitting this patient, that there is reasonable expectation that at the time of admission to the IRF, the patient's medical management and rehabilitation needs require an inpatient stay and close physician involvement. Patient can be expected to actively participate in, and benefit from, and intensive rehab therapy program whose intensity is not provided in lower levels of care. Significant barriers that can only be addressed in an acute inpatient rehab program, including, but not limited to:Date of onset: 08/18/22Current surgery date and type: 08/28/22 RIGHT BELOW KNEE AMPUTATION 08/19/22 irrigation and debridement right footActive comorbid conditions: POST OP ANEMIA, ERIKA, DM, HTN, DIABETIC NEUROPATHY, HLDPast medical and surgical history: DM 2 since age 33 DM neuropathy HTN hyperlipidemiaHad major surgery within 100 days of admission: YesRisk for medical/clinical complications: Anemia, Arrhythmia, BP fluctuation, Blood sugar fluctuation, Cardiac instability, Constipation, DVT, Depression, Electrolyte imbalance, Hypoxia, Incisional dehiscence, Infection, Injury d/t falls, Nutritional compromise, Pain, Renal insuff/failure, Skin breakdown, Respiratory insufficiency, Urinary retention Complex acute rehab needs: Custom therapy tx plan, Mgt of complex Co-morb, Med adjustment/mgmt., New medical diagnosis, Postsurgery req mgt/care, Nutritional compromise, Hospitalist consult, VTE RiskAcute hospital stay: [facility] , IRF consult on Acute care at 0914 RPT #:[id number] OF REPORTCLClinical [id number]:12:00G.[id number] able for patient [id number]:14:25 [facility] 2022-09-01 06:28:00 [id number] EQW[id number]:28:00 [facility] HospitalRe[facility] Progress NoteREPORT#:[id number] REPORT STATUS: SignedDATE:09/01/22 TIME: 06 PATIENT: KARMA ROWLAND UNIT #: [id number]#: [id number] ROOM/BED: [facility] [place]DOB: [birth year] AGE: 56 SEX: M ATTEND: Wilbert Ramires MDADM AUTHOR: Mj Vences MD * ALL edits or amendments must be made on the electronic/computer document * SubjectiveChief complaint:Rehab qywbqv-vy-HLWVRkdmr wellIn bed, NADStates pain fairly well controlledUrine is clearWife in roomDenies DICKENS/N/V/D/CP14 systems reviewed and neg. except that above. Objective GeneralVS:Vital Signs: Date Time Temp Pulse Resp B/P B/P Pulse O2 O2 Flow FiO2 Mean Ox Delivery Rate 09/01 0600 81 115/59 83 99 04/ 0500 80 17 126/65 90 97 04/ 0435 98.5 79 16 126/65 85 99 04/10 0400 83 16 128/64 90 97 04/10 0300 86 14 126/59 85 97 04/10 0200 87 148/70 101 97 04/10 0100 91 12 141/67 97 97 04/10 0032 98.1 90 16 138/66 90 99 04/10 0000 88 16 138/66 95 98 04/09 2300 87 13 134/64 92 98 04/ 2200 85 10 132/63 90 97 04/09 2100 139/64 92 08/31 2059 89 10 96 / 2000 92 14 167/77 111 99 04/ 1929 98.3 94 16 151/69 96 100 Room air 04/ 1900 96 151/69 99 98 04/09 1835 97 14 180/85 122 99 04/ 1804 15 04/09 1800 95 184/86 124 99 04/09 1620 97.5 95 16 195/88 0.0 99 04/09 1435 97.9 90 14 150/70 98 04/09 1430 98.1 89 14 147/69 98 04/09 1425 97.8 90 15 157/83 99 04/ 1419 98.3 90 14 155/68 90 04/09 1208 98.1 91 12 145/66 0.0 98 04/09 0715 98.1 79 14 144/69 0.0 99 PATIENT WEIGHT: Weight (lb): 154Weight (oz): 1.65Weight (kg): 69.900 Medications:Active Meds + DC'd Last 24 HrsHydralazine HCl (APRESOLINE) 10 MG Q6H PRN PRN IV Sodium Polystyrene Sulfonate (KAYEXELATE) 30 GM ONCE ONE PO (DC) Sodium Polystyrene Sulfonate (KAYEXELATE) 30 GM ONCE ONE PO (DC) Insulin Glargine (Lantus/Semglee) 15 UNIT BEDTIME SUBQ Insulin Human Lispro (HUMALOG) 5 UNIT AC SUBQ Lidocaine (LIDODERM) 1 PATCH DAILY TOPICAL Hydromorphone HCl (DILAUDID) 1 MG Q3H PRN PRN IV Hydromorphone HCl (DILAUDID) 0.5 MG Q3H PRN PRN IV Meropenem (MEROPENEM) 500 MG Q6H IV Sterile Water (WATER FOR INJECTION) 10 MLDaptomycin (CUBICIN 500MG) 700 MG Q24H IV (CKD) Sodium Chloride (SODIUM CHLORIDE 0.9%) 50 MLFamotidine (PEPCID) 20 MG BID PO (DC) Lorazepam (ATIVAN) 1 MG ONCE PRN IV Sodium Chloride (SODIUM CHLORIDE) 0 ASDIR PRN IV Insulin Human Lispro (HUMALOG) 0 AC HS SUBQ Dextrose/Water (DEXTROSE 10% IN WATER) 125 ML ASDIR PRN IV (CKD) Dextrose/Water (DEXTROSE 10% IN WATER) 250 ML ASDIR PRN IV (CKD) Glucagon (GLUCAGON) 1 MG ASDIR PRN IM Dextrose/Water (Dextrose 10% 1,000 mL) 1,000 ML ASDIR IV Acetaminophen (TYLENOL) 650 MG Q6H PRN PRN PO Bisacodyl (DULCOLAX) 10 MG DAILY PRN PRN RECTAL Docusate Sodium (COLACE) 100 MG Q12H PRN PRN PO Ondansetron HCl (ZOFRAN) 4 MG Q6H PRN PRN IV Heparin Sodium (HEPARIN 5000 UNITS/ML) 5,000 UNIT Q8HR SUBQ Physical ExamGeneral appearance: alert, awake, no acute distressPsych: alert, normal affect, oriented x 3HEENT: anicteric, mucosal membranes moist, pupils reactive to light, sclera clearNeck: non-tender, supple, no JVDCardiovascular: regular rate rhythm, S1/O9Fiqwitgwbag: aerating well, clear bilaterally, clear to auscultationAbdomen: bowel sounds present, non-distended, softSkin: R BKA wrapped with kerlix and JOAN, removed incision healing well, some small blisters on distal limb, no erythema. DSGings replaced. Left foot/ankle wrappedMusculoskeletal - general: Musculoskeletal - general: MMT BUE 5/5, LLE 4/5, R hip 3-, R knee in maxine-techorthoticNeuro/DIRECTOR OPERATING ROOM: alert, oriented X 3, CNII-XII intact ResultsFindings/Data:Laboratory Tests: 09/01 08/31 08/31 08/31 08/31 0345 1916 1810 1618 1240Chemistry POC Glucose (70 - 110 MG/DL) 176 H 163 H 76 Total Creatine Kinase (46 - 171 79Units/L)Hematology Hgb (12.5 - 16.9 g/dL) 9.1 L [...] % (Auto) (14.0 - 32.0 %) 16.8 [place] % (Auto) (4.8 - 9.0 %) 4.8 Eos % (Auto) (0.3 - 3.7 %) 1.6 Baso % (Auto) (0.0 - 2.0 %) 0.2 Neut # (Auto) (2.0 - 7.6 x10 3/uL) 6.63 Lymph # (Auto) (1.0 - 3.8 x10 3/uL) 1.46 [place] # (Auto) (0.1 - 0.8 x10 3/uL) 0.42 Eos # (Auto) (0.0 - 0.2 x10 3/uL) 0.14 Baso # (Auto) (0.0 - 0.2 x10 3/uL) 0.02 Abs Immat Gran (auto) (0.00 - 0.03 x10 3/uL) 0.03 Add Manual Diff NO Immature Gran % (0.0 - 2.0 %) 0.3 Nucleated RBC % (0 - 0 %) 0.0 Nucleated RBCs # (Man) (0.0 - 0.1 x10 3/uL) 0.00 Radiology data:Recent Impressions:ULTRASOUND - DUP VEIN UNI/LTD 08/28 0857 Report Impression - Status: SIGNED Entered: 08/28/2022 0927 IMPRESSION: 1. No evidence of venous thrombosis involving left lower extremity. 2. Approximately 8 x 2 x 1.3 cm complex fluid collection along the left upper calf probably representing a small hematoma. Impression By: [email or web address] - Roger Parra M.D.RADIOLOGY - XR FLUOROSCOPY 0-60 MIN 08/28 1101 Report Impression - Status: SIGNED Entered: 08/28/2022 1120 IMPRESSION: Fluoroscopy dosage documentation. See also separate procedure notes. Impression By: TipMSR - Bishop Atkins M.D. Diagnosis, Assessment PlanFree Text A P:Assessment: Severe Gas gangrene right foot and right ankle associated with osteomyelitis andnecrotizing fasciitisS/p surgical debridement and washout08/28: S/p right BKA-Dr. Friedmanificant impairment in self-care, ADLs and functional mobilityImpaired mobility and gaitPostoperative painDiabetic polyneuropathyDKA, DM 2, poorly controlledMinimal PADMRSA bacteremia/sepsisAKISevere hyponatremia-resolvedHTNAcute on chronic anemia requiring multiple transfusionsLeft calf hematomaEdema and clinical arthritis left ankleProstatic abscess 08/26: S/p transrectal ultrasound aspiration of abscess and transurethral resection of prostate and unroofing of abscess Echo: EF 55-59%, grade 1 diastolic dysfunctionHypoalbuminemia Plan:-Continue PT and OT-Case management for safe discharge planning.-Decubitus prevention-Nutrition, monitor the patient's p.o. intake, albumin 1.3, check prealbumin, dietary consultation, protein supplements promote healing-Strict fall and safety precaution-DVT prophylaxis-subcutaneous heparin-GI prophylaxis on Pepcid-Early mobilization-OOB to chair-Work on bed mobility, transfer training, ADLs, pre-gait and gait exercises as tolerable. -Increase endurance and strength-Pain management-patient requiring IV Dilaudid-Glycemic control as per endo-blood sugars much improved-Monitor labs-WBC trending down, hemoglobin 9.1, s/p PRBC transfusions, sodium normal, creatinine 1.2, potassium elevating given Kayexalate, awaiting potassiumlevel-Has received multiple units of PRBCs-serial H/H-ID requesting JIMENA to rule out endocarditis, continue ABX-Patient on CBI and urine is clear-DC CBI if okay with -Edema and clinical arthritis left ankle-Lidoderm patch and Joan wrap-NWB right BKA, continue Maxine-tech orthotic-incision healing well, some blisters on distal limb, no erythema or signs of infection, dressings reapplied-Right BKA amputee rehab-Excellent candidate for inpatient rehab, admit preauthorization if okay with rehabilitation admissions. Referral to [facility]. rehab ordered. Patient and would like to stay here at [facility] rehab.-Patient approved for IRF. Patient to admit today if okay with all providers. -Urine clear-asked RN to DC CBI if okay with -Preadmission screen completed.-COVID-negative Progress: Bed Mobility - Rolling: Minimal Assistance Bed Mobility - Supine to Sit: Moderate Assistance Bed Mobility - Sit to Supine: Moderate Assistance Scooting: Moderate Assistance Sit to Stand: Dependent Static Sitting: Minimal Assistance Dynamic Sitting: Minimal Assistance Static Standing: Dependent Dynamic Standing: Not Tested Functional Exercises: SUPINE EXERCISES Total time was 34 minutes > 50% with patient performing physical examination, discussing with patient and about transfer to rehab, rehab plan of care, goals, therapies, progress, medications, labs. All questions answeredOrders: Procedure Date/time Status EXERCISE 15 MIN 09/01 113 Active ADL 15 MIN 09/01 113 Active Rehab attestation:. at 1139 RPT #:[id number] OF REPORTPRProgress [id number]:28:00G.[id number] able for patient vttzKUNWZSCKTTJBKK1359-94-72B38:39:56 [facility] 2022-08-31 15:30:00 [id number] [id number]+ptJXAVW0zgFros7MS+IHhF2Yq U0nOjQWsxh1hroCec8tk6RK17MG6558-06-98Y52:30:00 [facility])Endocrinology Progress NoteREPORT#:[id number] REPORT STATUS: SignedDATE:08/31/22 TIME: 1530 PATIENT: KARMA ROWLAND UNIT #: [id number]#: [id number] [address] [birth year] AGE: 56 SEX: M ATTEND: Wilbert Ramires MDADM AUTHOR: Braxton Chapin MD * ALL edits or amendments must be made on the electronic/computer document * SubjectivePatient reports: no complaints Objective GeneralVS:Last Documented: Result Date Time Pulse Ox 98 08/31 1435 B/P 150/70 08/31 1435 Temp 36.6 08/31 1435 Pulse 90 08/31 1435 Resp 14 08/31 1435 B/P Mean 0.0 08/31 1208 O2 Delivery Room air 08/31 0516 O2 Flow Rate 7 08/28 1222 PATIENT WEIGHT: Weight (lb): 154Weight (oz): 1.65Weight (kg): 69.900 Medications:Active Meds + DC'd Last 24 HrsSodium Polystyrene Sulfonate (KAYEXELATE) 30 GM ONCE ONE PO (DC) Sodium Polystyrene Sulfonate (KAYEXELATE) 30 GM ONCE ONE PO (DC) Insulin Glargine (Lantus/Semglee) 15 UNIT BEDTIME SUBQ Insulin Human Lispro (HUMALOG) 5 UNIT AC SUBQ Lidocaine (LIDODERM) 1 PATCH DAILY TOPICAL Insulin Glargine (Lantus/Semglee) 20 UNIT BEDTIME SUBQ (DC) Hydromorphone HCl (DILAUDID) 1 MG Q3H PRN PRN IV Hydromorphone HCl (DILAUDID) 0.5 MG Q3H PRN PRN IV Meropenem (MEROPENEM) 500 MG Q6H IV Sterile Water (WATER FOR INJECTION) 10 MLDaptomycin (CUBICIN 500MG) 700 MG Q24H IV (CKD) Sodium Chloride (SODIUM CHLORIDE 0.9%) 50 MLFamotidine (PEPCID) 20 MG BID PO (DC) Lorazepam (ATIVAN) 1 MG ONCE PRN IV Sodium Chloride (SODIUM CHLORIDE) 0 ASDIR PRN IV Insulin Human Lispro (HUMALOG) 0 AC HS SUBQ Dextrose/Water (DEXTROSE 10% IN WATER) 125 ML ASDIR PRN IV (CKD) Dextrose/Water (DEXTROSE 10% IN WATER) 250 ML ASDIR PRN IV (CKD) Glucagon (GLUCAGON) 1 MG ASDIR PRN IM Dextrose/Water (Dextrose 10% 1,000 mL) 1,000 ML ASDIR IV Acetaminophen (TYLENOL) 650 MG Q6H PRN PRN PO Bisacodyl (DULCOLAX) 10 MG DAILY PRN PRN RECTAL Docusate Sodium (COLACE) 100 MG Q12H PRN PRN PO Ondansetron HCl (ZOFRAN) 4 MG Q6H PRN PRN IV Heparin Sodium (HEPARIN 5000 UNITS/ML) 5,000 UNIT Q8HR SUBQ Physical ExamGeneral appearance: alert, awake Diagnosis, Assessment PlanHospital course to date:Laboratory Tests: 08/31 08/31 08/31 08/31 08/30 1240 1203 0714 0642 1943Chemistry Sodium (134 - 147 mEq/L) 136 Potassium [...] H Calcium (8.0 - 10.5 mg/dL) 7.2 LHematology WBC (4.5 - 11.0 x10 3/uL) 8.7 [...] % (Auto) (14.0 - 32.0 %) 16.8 [place] % (Auto) (4.8 - 9.0 %) 4.8 Eos % (Auto) (0.3 - 3.7 %) 1.6 Baso % (Auto) (0.0 - 2.0 %) 0.2 Neut # (Auto) (2.0 - 7.6 x10 3/uL) 6.63 Lymph # (Auto) (1.0 - 3.8 x10 3/uL) 1.46 [place] # (Auto) (0.1 - 0.8 x10 3/uL) 0.42 Eos # (Auto) (0.0 - 0.2 x10 3/uL) 0.14 Baso # (Auto) (0.0 - 0.2 x10 3/uL) 0.02 Abs Immat Gran (auto) (0.00 - 0.03 0.03x10 3/uL) Add Manual Diff NO Immature Gran % (0.0 - 2.0 %) 0.3 Nucleated RBC % (0 - 0 %) 0.0 Nucleated RBCs # (Man) (0.0 - 0.1 0.00x10 3/uL) 08/30 165 Chemistry POC Glucose (70 - 110 MG/DL) 109 Laboratory Tests: 08/30 08/30 08/30 08/30 08/29 1651 1218 0827 0545 2011Chemistry Sodium (134 - 147 mEq/L) 136 Potassium [...] MG/DL) 4.6 Magnesium (1.80 - 2.40 mg/dL) 2.01Hematology WBC (4.5 - 11.0 x10 3/uL) 12.6 [...] (Auto) (14.0 - 32.0 %) 13.4 L [place] % (Auto) (4.8 - 9.0 %) 6.3 Eos % (Auto) (0.3 - 3.7 %) 0.8 Baso % (Auto) (0.0 - 2.0 %) 0.2 Neut # (Auto) (2.0 - 7.6 x10 3/uL) 9.96 H Lymph # (Auto) (1.0 - 3.8 x10 3/uL) 1.69 [place] # (Auto) (0.1 - 0.8 x10 3/uL) 0.79 Eos # (Auto) (0.0 - 0.2 x10 3/uL) 0.10 Baso # (Auto) (0.0 - 0.2 x10 3/uL) 0.02 Abs Immat Gran (auto) (0.00 - 0.03 0.08 Hx10 3/uL) Add Manual Diff NO Immature Gran % (0.0 - 2.0 %) 0.6 Nucleated RBC % (0 - 0 %) 0.0 Nucleated RBCs # (Man) (0.0 - 0.1 0.00x10 3/uL) Laboratory Tests: 08/29 08/29 08/29 08/29 [...] (Auto) (14.0 - 32.0 %) 10.0 L [place] % (Auto) (4.8 - 9.0 %) 5.6 Eos % (Auto) (0.3 - 3.7 %) 0.5 Baso % (Auto) (0.0 - 2.0 %) 0.1 Neut # (Auto) (2.0 - 7.6 x10 3/uL) 11.78 H Lymph # (Auto) (1.0 - 3.8 x10 3/uL) 1.42 [place] # (Auto) (0.1 - 0.8 x10 3/uL) 0.79 Eos # (Auto) (0.0 - 0.2 x10 3/uL) 0.07 Baso # (Auto) (0.0 - 0.2 x10 3/uL) 0.02 Abs Immat Gran (auto) (0.00 - 0.03 x10 3/uL) 0.08 H Add Manual Diff NO Immature Gran % (0.0 - 2.0 %) 0.6 Nucleated RBC % (0 - 0 %) 0.0 Nucleated RBCs # (Man) (0.0 - 0.1 x10 3/uL) 0.00 Laboratory Tests: 08/28 08/28 08/28 08/28 1709 1302 1218 0624 Chemistry POC Glucose (70 - 110 MG/DL) 103 206 H 185 H 180 H 08/280 2049 1825 Chemistry Sodium (134 - 147 mEq/L) [...] (Auto) (14.0 - 32.0 %) 8.2 L [place] % (Auto) (4.8 - 9.0 %) 4.1 L Eos % (Auto) (0.3 - 3.7 %) 0.4 Baso % (Auto) (0.0 - 2.0 %) 0.1 Neut # (Auto) (2.0 - 7.6 x10 3/uL) 11.92 H Lymph # (Auto) (1.0 - 3.8 x10 3/uL) 1.13 [place] # (Auto) (0.1 - 0.8 x10 3/uL) 0.57 Eos # (Auto) (0.0 - 0.2 x10 3/uL) 0.05 Baso # (Auto) (0.0 - 0.2 x10 3/uL) 0.01 Abs Immat Gran (auto) (0.00 - 0.03 x10 3/uL) 0.07 H Add Manual Diff NO Immature Gran % (0.0 - 2.0 %) 0.5 Nucleated RBC % (0 - 0 %) 0.0 Nucleated RBCs # (Man) (0.0 - 0.1 x10 3/uL) 0.00 Microbiology: Date/Time Procedure - Status Source Growth 08/29 1347 Blood Culture - RECD BLOOD 08/28 134 Blood Culture - RECD BLOOD Recent Impressions:ULTRASOUND - DUP VEIN UNI/LTD 08/28 0857 Report Impression - Status: SIGNED Entered: 08/28/2022 0927 IMPRESSION: 1. No evidence of venous thrombosis involving left lower extremity. 2. Approximately 8 x 2 x 1.3 cm complex fluid collection along the left upper calf probably representing a small hematoma. Impression By: [email or web address] - Roger Parra M.D.RADIOLOGY - XR FLUOROSCOPY 0-60 MIN 08/28 1101 Report Impression - Status: SIGNED Entered: 08/28/2022 1120 IMPRESSION: Fluoroscopy dosage documentation. See also separate procedure notes. Impression By: [email or web address] - Bishop Atkins M.D. Laboratory Tests: 08/27 08/27 08/27 08/27 8968 0907 5845 6225 Chemistry Sodium (134 - 147 mEq/L) 137 [...] - 5.0 g/dL) 1.30 L 08/27 08/26 1078 2041 Chemistry POC Glucose (70 - 110 [...] (Auto) (14.0 - 32.0 %) 7.0 L [place] % (Auto) (4.8 - 9.0 %) 3.3 L Eos % (Auto) (0.3 - 3.7 %) 0.3 Baso % (Auto) (0.0 - 2.0 %) 0.1 Neut # (Auto) (2.0 - 7.6 x10 3/uL) 14.14 H Lymph # (Auto) (1.0 - 3.8 x10 3/uL) 1.11 [place] # (Auto) (0.1 - 0.8 x10 3/uL) 0.52 Eos # (Auto) (0.0 - 0.2 x10 3/uL) 0.04 Baso # (Auto) (0.0 - 0.2 x10 3/uL) 0.02 Abs Immat Gran (auto) (0.00 - 0.03 x10 3/uL) 0.10 H Add Manual Diff NO Immature Gran % (0.0 - 2.0 %) 0.6 Nucleated RBC % (0 - 0 %) 0.0 Nucleated RBCs # (Man) (0.0 - 0.1 x10 3/uL) 0.00 Microbiology: Date/Time Procedure - Status Source Growth [...] (Auto) (14.0 - 32.0 %) 7.4 L [place] % (Auto) (4.8 - 9.0 %) 3.9 L Eos % (Auto) (0.3 - 3.7 %) 0.5 Baso % (Auto) (0.0 - 2.0 %) 0.1 Neut # (Auto) (2.0 - 7.6 x10 3/uL) 15.49 H Lymph # (Auto) (1.0 - 3.8 x10 3/uL) 1.31 [place] # (Auto) (0.1 - 0.8 x10 3/uL) 0.69 Eos # (Auto) (0.0 - 0.2 x10 3/uL) 0.08 Baso # (Auto) (0.0 - 0.2 x10 3/uL) 0.01 Abs Immat Gran (auto) (0.00 - 0.03 x10 3/uL) 0.11 H Add Manual Diff NO Immature Gran % (0.0 - 2.0 %) 0.6 Nucleated RBC % (0 - 0 %) 0.0 Nucleated RBCs # (Man) (0.0 - 0.1 x10 3/uL) 0.00 Laboratory Tests: 08/25 08/25 08/25 08/25 1723 1111 1044 1044 Chemistry Potassium (3.4 - 5.0 mEq/L) 4.5 POC Glucose (70 - 110 MG/DL) 132 H 143 H Total Creatine Kinase (46 - 171 Units/L) 17 L Urines Urine Color (YEL/STRAW) YELLOW Urine Appearance (CLEAR) TURBID H Urine pH (5.0 - 7.0) 5.0 Ur Specific [place] (1.005 - 1.030) 1.012 Urine Protein (NEGATIVE) [...] (Auto) (14.0 - 32.0 %) 8.1 L [place] % (Auto) (4.8 - 9.0 %) 4.3 L Eos % (Auto) (0.3 - 3.7 %) 0.5 Baso % (Auto) (0.0 - 2.0 %) 0.1 Neut # (Auto) (2.0 - 7.6 x10 3/uL) 15.44 H Lymph # (Auto) (1.0 - 3.8 x10 3/uL) 1.45 [place] # (Auto) (0.1 - 0.8 x10 3/uL) 0.77 Eos # (Auto) (0.0 - 0.2 x10 3/uL) 0.09 Baso # (Auto) (0.0 - 0.2 x10 3/uL) 0.02 Abs Immat Gran (auto) (0.00 - 0.03 x10 3/uL) 0.13 H Add Manual Diff NO Immature Gran % (0.0 - 2.0 %) 0.7 Nucleated RBC % (0 - 0 %) 0.0 Nucleated RBCs # (Man) (0.0 - 0.1 x10 3/uL) 0.00 Microbiology: Date/Time Procedure - Status Source Growth 08/26 1043 Urine Culture - WKST URINE 08/26 1043 Blood Culture - RECD BLOOD 08/26 1043 Blood Culture - RECD BLOOD Laboratory Tests: 08/20 08/20 08/20 08/20 08/20 1107 0756 0647 0554 0454Chemistry Sodium (134 - 147 mEq/L) 137 Potassium [...] L Albumin (3.4 - 5.0 g/dL) 2.00 LHematology WBC (4.5 - 11.0 x10 3/uL) 22.8 [...] (Auto) (14.0 - 32.0 %) 4.8 L [place] % (Auto) (4.8 - 9.0 %) 2.9 L Eos % (Auto) (0.3 - 3.7 %) 0.0 L Baso % (Auto) (0.0 - 2.0 %) 0.2 Neut # (Auto) (2.0 - 7.6 x10 3/uL) 19.90 H Lymph # (Auto) (1.0 - 3.8 x10 3/uL) 1.10 [place] # (Auto) (0.1 - 0.8 x10 3/uL) 0.66 Eos # (Auto) (0.0 - 0.2 x10 3/uL) 0.00 Baso # (Auto) (0.0 - 0.2 x10 3/uL) 0.04 Abs Immat Gran (auto) (0.00 - 0.03 1.12 Hx10 3/uL) Add Manual Diff NO Immature Gran % (0.0 - 2.0 %) 4.9 H Nucleated RBC % (0 - 0 %) 0.0 Nucleated RBCs # (Man) (0.0 - 0.1 0.00x10 3/uL) 08/20 08/20 08/19 08/19 08/19 0259 [...] (37.5 - 50.7 %) 21.8 L 08/193 2130 2014 172 1652Chemistry Sodium (134 - 147 mEq/L) 133 L [...] 2.03 Albumin (3.4 - 5.0 g/dL) 1.40 LHematology WBC (4.5 - 11.0 x10 3/uL) 20.3 [...] (Auto) (14.0 - 32.0 %) 3.8 L [place] % (Auto) (4.8 - 9.0 %) 3.7 L Eos % (Auto) (0.3 - 3.7 %) 0.0 L Baso % (Auto) (0.0 - 2.0 %) 0.3 Neut # (Auto) (2.0 - 7.6 x10 3/uL) 17.97 H Lymph # (Auto) (1.0 - 3.8 x10 3/uL) 0.76 L [place] # (Auto) (0.1 - 0.8 x10 3/uL) 0.74 Eos # (Auto) (0.0 - 0.2 x10 3/uL) 0.00 Baso # (Auto) (0.0 - 0.2 x10 3/uL) 0.07 Abs Immat Gran (auto) (0.00 - 0.03 0.71 Hx10 3/uL) Add Manual Diff NO Immature Gran % (0.0 - 2.0 %) 3.5 H Nucleated RBC % (0 - 0 %) 0.0 Nucleated RBCs # (Man) (0.0 - 0.1 0.00x10 3/uL) 08/19 08/19 1622 1601 Chemistry POC Glucose (70 - 110 MG/DL) 232 H Urines Urine Color (YEL/STRAW) YELLOW Urine Appearance (CLEAR) SL CLOUDY Urine pH (5.0 - 7.0) 5.0 Ur Specific [place] (1.005 - 1.030) 1.013 Urine Protein (NEGATIVE) [...] (Auto) (14.0 - 32.0 %) 4.3 L [place] % (Auto) (4.8 - 9.0 %) 3.1 L Eos % (Auto) (0.3 - 3.7 %) 0.0 L Baso % (Auto) (0.0 - 2.0 %) 0.3 Neut # (Auto) (2.0 - 7.6 x10 3/uL) 19.17 H Lymph # (Auto) (1.0 - 3.8 x10 3/uL) 0.91 L [place] # (Auto) (0.1 - 0.8 x10 3/uL) 0.67 Eos # (Auto) (0.0 - 0.2 x10 3/uL) 0.01 Baso # (Auto) (0.0 - 0.2 x10 3/uL) 0.07 Abs Immat Gran (auto) (0.00 - 0.03 x10 3/uL) 0.51 H Add Manual Diff NO Immature Gran % (0.0 - 2.0 %) 2.4 H Nucleated RBC % (0 - 0 %) 0.0 Nucleated RBCs # (Man) (0.0 - 0.1 x10 3/uL) 0.00 08/18 08/18 08/18 08/18 2246 2157 1854 [...] 1209 Gram Stain - RES ABSCESS Recent Impressions:ULTRASOUND - DUP LE ART UNI/LTD 08/19 0950 Report Impression - Status: SIGNED Entered: 08/19/2022 1056 IMPRESSION: No sonographic evidence for flow-limiting stenosis in the right lower extremity arterial system. Impression By: [email or web address] - Abraham Ross M.D. Laboratory Tests: 08/18 08/18 08/18 08/18 08/18 1430 1430 1404 1309 1203Chemistry Sodium (134 - 147 mEq/L) 131 L [...] 20.0 L Cholesterol/HDL Ratio (3.43 - 4.97 4.00RATIO) TSH (0.42 - 5.47) 0.96 Free T4 (0.77 - 1.61 ng/dL) 0.7 L 08/18 08/18 08/18 08/18 08/18 1107 1004 0900 0823 0549 Chemistry POC Glucose (70 - 110 MG/DL) 223 H 304 H 405 H 449 H Hemoglobin A1c (4.8 - 6.0 %A1C) 13.4 H 08/18 08/18 08/18 0549 0305 0207Blood Gas Puncture Site R Radial O2 Saturation [...] O2 Delivery Device Room Air FiO2 (%) 21Chemistry Sodium (134 - 147 mEq/L) 121 *L [...] 2.34 Albumin (3.4 - 5.0 g/dL) 1.60 LSerology Influenza Type A (PCR) (Negative) Negative Influenza Type B (PCR) (Negative) NegativeToxicology Acetone, Quant (Neg - <20 mg/dL) Large [...] 202 Blood Culture - RES BLOOD 08/18 020 Blood Culture Gram Stain - RES BLOOD Recent Impressions:RADIOLOGY - XR CHEST 2 V 08/18 0201 Report Impression - Status: SIGNED Entered: 08/18/2022 0317 IMPRESSION: Ill-defined somewhat nodular opacity measuring 3.2 cm laterally in the right mid lung suspicious for rounded pneumonia given provided history, but underlying neoplasm can not be excluded. Followup radiographs are recommended after appropriate treatment in order to document complete resolution and exclude an underlying process or neoplasm. Impression By: Mark Adams M.D.RADIOLOGY - XR FOOT 3 + V RT 08/18 0238 Report Impression - Status: SIGNED Entered: 08/18/2022 0358 IMPRESSION: No acute osseous findings. No convincing evidence for osteomyelitis. MRI is more sensitive for detecting osteomyelitis.Impression By: Ankur Ladd M.D.CAT SCAN - CT ABD PELVIS W/CONT 08/18 0339 Report Impression - Status: SIGNED Entered: 08/18/2022 0546 IMPRESSION: 3.3 cm hypodensity in the left posterior prostate or seminal vesicle. This could represent an abscess. Contrast-enhanced MRI of the pelvis would be helpful for further evaluation.No acute intra-abdominal findings otherwise.Impression By: Ankur Ladd M.D.CAT SCAN - CT LOWER EXTRM W/O C RT 08/18 0645 Report Impression - Status: SIGNED Entered: 08/18/2022 0827 IMPRESSION: Extensive soft tissue edema with mottled gas in the subcutaneous and intramuscular compartments of the foot compatible with gas-forming infection. Disease extends into the visualized distal leg. Impression By: Jamel Dorantes M.D. 1. 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 DKA3. Cellulitis and gangrene of the right foot.4. Sepsis5. Altered mental status6. High LFTsBlood sugar 129-76 mg/dL.HbA1c 13.4%Adjust insulin dose.Wound care and IV antibiotics.S/P wound debridement. at 1531 RPT #:[id number] OF REPORTPRProgress [id number]:30:00G.[id number] able for patient jisrSBKFHGZSTTSURN9774-49-61S32:31:54 [facility] 2022-08-31 10:19:00 [id number] +Exg27kFMwzrQ9bFFT3VCUSiQsLTs MW3ii0raPLxUI9nZwIXeTQFpzrK5634-51-24J42:19:00 [facility] HospitalHospitalist Progress NoteREPORT#:[id number] REPORT STATUS: SignedDATE:08/31/22 TIME: 1019 PATIENT: KARMA ROWLAND UNIT #: [id number]#: [id number] [address] [birth year] AGE: 56 SEX: M ATTEND: Wilbert Ramires [facility] AUTHOR: Musa Enriquez MD * ALL edits or amendments must be made on the electronic/computer document * SubjectiveChief complaint:AMS and right foot infection. s/p extensivedebridement. s/p BKA. pain controlledHPI:No acute issues. Review of SystemsAll systems rev neg: except as noted Objective GeneralVS/I O:Vital Signs: Date Time Temp Pulse Resp B/P B/P Pulse O2 O2 Flow FiO2 Mean Ox Delivery Rate 08/31 714 36.7 79 14 144/69 0.0 99 08/31 0600 80 13 136/65 93 98 08/31 0516 36.4 78 12 133/65 0.0 98 Room air 08/31 0500 79 133/65 93 98 08/31 0400 78 136/72 98 97 08/31 0300 80 14 126/63 88 97 08/31 0200 84 14 139/65 93 99 08/31 0100 79 15 143/65 94 98 08/31 0027 36.5 81 15 138/66 0.0 98 Room air 0000 83 10 138/66 95 98 04 2300 86 13 128/61 88 97 08/30 2200 96 130/60 86 96 08/30 2100 86 128/59 85 96 08/30 2000 94 19 159/77 111 98 04/08 1944 36.9 95 15 162/76 0.0 100 Room air 08/30 1900 99 19 110 99 04/08 1653 36.9 83 13 160/75 0.0 99 04/08 1303 88 0408 1300 91 17 154/72 104 97 0408 1250 87 19 172/78 112 99 04/08 1200 36.8 04 1101 85 22 150/68 98 99 24 hour I O ending at 0700: 08/31 0700 08/30 1900 Intake Total Output Total 500 Balance -500 Output, Urine 500 PATIENT WEIGHT: Weight (lb): 154Weight (oz): 1.65Weight (kg): 69.900 Medications:Active Meds + DC'd Last 24 HrsSodium Polystyrene Sulfonate (KAYEXELATE) 30 GM ONCE ONE PO (DC) Insulin Glargine (Lantus/Semglee) 15 UNIT BEDTIME SUBQ Insulin Human Lispro (HUMALOG) 5 UNIT AC SUBQ Lidocaine (LIDODERM) 1 PATCH DAILY TOPICAL Insulin Glargine (Lantus/Semglee) 20 UNIT BEDTIME SUBQ (DC) Hydromorphone HCl (DILAUDID) 1 MG Q3H PRN PRN IV Hydromorphone HCl (DILAUDID) 0.5 MG Q3H PRN PRN IV Meropenem (MEROPENEM) 500 MG Q6H IV Sterile Water (WATER FOR INJECTION) 10 MLDaptomycin (CUBICIN 500MG) 700 MG Q24H IV (CKD) Sodium Chloride (SODIUM CHLORIDE 0.9%) 50 MLFamotidine (PEPCID) 20 MG BID PO (DC) Lorazepam (ATIVAN) 1 MG ONCE PRN IV Sodium Chloride (SODIUM CHLORIDE) 0 ASDIR PRN IV Insulin Human Lispro (HUMALOG) 0 AC HS SUBQ Dextrose/Water (DEXTROSE 10% IN WATER) 125 ML ASDIR PRN IV (CKD) Dextrose/Water (DEXTROSE 10% IN WATER) 250 ML ASDIR PRN IV (CKD) Glucagon (GLUCAGON) 1 MG ASDIR PRN IM Dextrose/Water (Dextrose 10% 1,000 mL) 1,000 ML ASDIR IV Acetaminophen (TYLENOL) 650 MG Q6H PRN PRN PO Bisacodyl (DULCOLAX) 10 MG DAILY PRN PRN RECTAL Docusate Sodium (COLACE) 100 MG Q12H PRN PRN PO Ondansetron HCl (ZOFRAN) 4 MG Q6H PRN PRN IV Heparin Sodium (HEPARIN 5000 UNITS/ML) 5,000 UNIT Q8HR SUBQ Physical ExamHead/Eyes: normocephalicENT: moist mucosal membranesNeck: no JVDCardiovascular: regular rate rhythm, no heaveRespiratory: aerating well, clear to auscultation, symmetric expansion, no distressAbdomen: non-tender, normal bowel sounds, soft, no distentionGenitourinary: no bladder distentionExtremities: R foot in dressingNeuro/DIRECTOR OPERATING ROOM: alert, oriented X 3, 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 Considered stroke alert: noSkin: no rashPsychiatry: normal affect, normal judgment/insight, normal mood ResultsFindings/Data:Laboratory Tests 08/31 08/31 08/30 08/30 08/30 0714 [...] 10.5 mg/dL) 7.2 L Laboratory Tests 08/31 0642 Hematology WBC (4.5 - 11.0 x10 3/uL) [...] % (Auto) (14.0 - 32.0 %) 16.8 [place] % (Auto) (4.8 - 9.0 %) 4.8 Eos % (Auto) (0.3 - 3.7 %) 1.6 Baso % (Auto) (0.0 - 2.0 %) 0.2 Neut # (Auto) (2.0 - 7.6 x10 3/uL) 6.63 Lymph # (Auto) (1.0 - 3.8 x10 3/uL) 1.46 [place] # (Auto) (0.1 - 0.8 x10 3/uL) 0.42 Eos # (Auto) (0.0 - 0.2 x10 3/uL) 0.14 Baso # (Auto) (0.0 - 0.2 x10 3/uL) 0.02 Abs Immat Gran (auto) (0.00 - 0.03 x10 3/uL) 0.03 Add Manual Diff NO Immature Gran % (0.0 - 2.0 %) 0.3 Nucleated RBC % (0 - 0 %) 0.0 Nucleated RBCs # (Man) (0.0 - 0.1 x10 3/uL) 0.00 Diagnosis, Assessment Plan Free Text DxA P NotesFree text DxA P notes:DKADM 2, poorly controlledsevere gas gangrene, right foot/necrotizing fascitis - s/p BKAMRSA bacteremiaAKIsevere hyponatremia likely due to combination of severe hyperglycemia and dehydration from DKAsepsis due to foot infectionDM neuropathyHTNanemia, acute due to blood lossleft calf hematomaprostatic abscess with Citrobacter and enterococcus Plans: - admit to ICU - continue IV fluids aggressively - monitor lytes and AG - IV insulin drip for now until gap closes - endo eval - keep on Vancomycin and Zosyn - podiatry eval - d.w Dr, Reyhani - likely will need debridement - MRI [...] planning for I D today. Surgery on standby if needed to further debride his lower leg vs amputation. - WBC improving - will type and cross for blood and transfuse if less than 7 gms - d.w at [...] wean off insulin drip. Subq insulin and sliding scale. endo following - pain controlled - will likely need wound vac and alf IV antibiotic therapy - d/w at bedside - PT/OT 08/21/2022 - continue IV antibitoics - wound care with pulse lavage. will likely need wound vac at some point - off [...] transfuse blood for anemia. no overt blood loss - continue IV antibiotics - mobilize - pulse lavage to wound. ? wound vac - continue to monitor blood sugars - floor transfer - d/w 08/24/2022 - follow hgb and transfuse as needed - IV antibiotics - anesthesia consult for MRI - blood sugars ok - pulse lavage - await podiatry eval for wound care - ? wound vac - d.w at bedside 08/25/22Continue abx (Dapto and Teflaro) as per IDUpdated Urology on MRI results, Dr. Du will review images and discuss with family for possible prostate/seminal vesicle abscessCont wound care as per Podiatry, may have debridement today BP and BS well controlled K+ high, repeat levelHgb 7.3 stableDiscussed with at bedside 08/26/2022 - hgb low. will transfuse 2 units - d.w Dr. Pedersen - patient has lost so much tissues in his foot that his potential for wound closure and usability of his foot is poor. Recommendations made to proceed with BKA - continue to monitor blood sugars - IV antibitoics - wound care - urology planning for aspiration of prostatic cyst seen on MRI. PSA normal - OOB 08/27/22s/p transfusion planned for BKA IV antibiotics Wound care DM - managed with insulin DVT prophylaxis 08/28/2022 - noted left leg swelling and pain - patient on Heparin SQ for VTE. will order stat venous US - planning for right BKA today - continue IV antibiotics per ID - follow blood sugars closely - will need PT/OT and possible rehab post surgery - d/w at bedside 08/29/2022 - US [...] and transfuse if hgb less than 7 gms - Heparin SQ for VTE 08/30/22 s/p BKA. doing well IV antibiotics PT/ OT possible rehab monitor hb transfer to floor / IMCU 08/31/2022 S/p BKA doing okay pain is controlledIV antibiotic therapyPT OTNoted hemoglobin low at 6.8 will transfuse monitor PRBCPotassium was high as well give KayexalateRecheck lab work later today discussed with nurse.If stable overall in the next 24 hours can be transferred/downgraded to regular floor.DM control. at 1020 RPT #:[id number] OF REPORTPRProgress [id number]:19:00G.[id number] able for patient [id number]:20:41 [facility] 2022-08-30 18:03:00 [id number] KESkNkwpxqzGYLQCNgBV46eo/wj7476-23-05Y30:03:00 [facility] HospitalEndocrinology Progress NoteREPORT#:[id number] REPORT STATUS: SignedDATE:08/30/22 TIME: 1802 PATIENT: KARMA ROWLAND UNIT #: [id number]#: [id number] [address] AGE: 56 SEX: M ATTEND: Wilbert Ramires MDADM AUTHOR: Braxton Chapin MD * ALL edits or amendments must be made on the electronic/computer document * SubjectivePatient reports: no complaints Objective GeneralVS:Last Documented: Result Date Time Pulse Ox 99 08/30 1653 B/P 160/75 08/30 1653 B/P Mean 0.0 08/30 1653 Temp 36.9 08/30 1653 Pulse 83 08/30 1653 Resp 13 08/30 1653 O2 Delivery Room air 08/28 1235 O2 Flow Rate 7 08/28 1222 PATIENT WEIGHT: Weight (lb): 154Weight (oz): 1.65Weight (kg): 69.900 Medications:Active Meds + DC'd Last 24 HrsInsulin Human Lispro (HUMALOG) 5 UNIT AC SUBQ Lidocaine (LIDODERM) 1 PATCH DAILY TOPICAL Insulin Glargine (Lantus/Semglee) 20 UNIT BEDTIME SUBQ Hydromorphone HCl (DILAUDID) 1 MG Q3H PRN PRN IV Hydromorphone HCl (DILAUDID) 0.5 MG Q3H PRN PRN IV Cefazolin Sodium (KEFZOL OR ANCEF) 1 GM Q8H IV (DC) Sodium Chloride (SODIUM CHLORIDE) 10 MLMeropenem (MEROPENEM) 500 MG Q6H IV Sterile Water (WATER FOR INJECTION) 10 MLDaptomycin (CUBICIN 500MG) 700 MG Q24H IV (CKD) Sodium Chloride (SODIUM CHLORIDE 0.9%) 50 MLFamotidine (PEPCID) 20 MG BID PO Lorazepam (ATIVAN) 1 MG ONCE PRN IV Sodium Chloride (SODIUM CHLORIDE) 0 ASDIR PRN IV Insulin Human Lispro (HUMALOG) 0 AC HS SUBQ Dextrose/Water (DEXTROSE 10% IN WATER) 125 ML ASDIR PRN IV (CKD) Dextrose/Water (DEXTROSE 10% IN WATER) 250 ML ASDIR PRN IV (CKD) Glucagon (GLUCAGON) 1 MG ASDIR PRN IM Dextrose/Water (Dextrose 10% 1,000 mL) 1,000 ML ASDIR IV Acetaminophen (TYLENOL) 650 MG Q6H PRN PRN PO Bisacodyl (DULCOLAX) 10 MG DAILY PRN PRN RECTAL Docusate Sodium (COLACE) 100 MG Q12H PRN PRN PO Ondansetron HCl (ZOFRAN) 4 MG Q6H PRN PRN IV Heparin Sodium (HEPARIN 5000 UNITS/ML) 5,000 UNIT Q8HR SUBQ Physical ExamGeneral appearance: alert, awake Diagnosis, Assessment PlanHospital course to date:Laboratory Tests: 08/30 08/30 08/30 08/30 08/29 1651 1218 0829 9030 2011Chemistry Sodium (134 - 147 mEq/L) 136 Potassium [...] MG/DL) 4.6 Magnesium (1.80 - 2.40 mg/dL) 2.01Hematology WBC (4.5 - 11.0 x10 3/uL) 12.6 [...] (Auto) (14.0 - 32.0 %) 13.4 L [place] % (Auto) (4.8 - 9.0 %) 6.3 Eos % (Auto) (0.3 - 3.7 %) 0.8 Baso % (Auto) (0.0 - 2.0 %) 0.2 Neut # (Auto) (2.0 - 7.6 x10 3/uL) 9.96 H Lymph # (Auto) (1.0 - 3.8 x10 3/uL) 1.69 [place] # (Auto) (0.1 - 0.8 x10 3/uL) 0.79 Eos # (Auto) (0.0 - 0.2 x10 3/uL) 0.10 Baso # (Auto) (0.0 - 0.2 x10 3/uL) 0.02 Abs Immat Gran (auto) (0.00 - 0.03 0.08 Hx10 3/uL) Add Manual Diff NO Immature Gran % (0.0 - 2.0 %) 0.6 Nucleated RBC % (0 - 0 %) 0.0 Nucleated RBCs # (Man) (0.0 - 0.1 0.00x10 3/uL) Laboratory Tests: 08/29 08/29 08/29 08/29 08/29 1655 1041 0912 0844 0587 Chemistry POC Glucose (70 - 110 MG/DL) 157 H 105 70 70 Prealbumin (16.0 - 40.0 mg/dL) < 5.0 L 04/07 04/06 0513 2016 Chemistry Sodium (134 - 147 mEq/L) 136 [...] (Auto) (14.0 - 32.0 %) 10.0 L [place] % (Auto) (4.8 - 9.0 %) 5.6 Eos % (Auto) (0.3 - 3.7 %) 0.5 Baso % (Auto) (0.0 - 2.0 %) 0.1 Neut # (Auto) (2.0 - 7.6 x10 3/uL) 11.78 H Lymph # (Auto) (1.0 - 3.8 x10 3/uL) 1.42 [place] # (Auto) (0.1 - 0.8 x10 3/uL) 0.79 Eos # (Auto) (0.0 - 0.2 x10 3/uL) 0.07 Baso # (Auto) (0.0 - 0.2 x10 3/uL) 0.02 Abs Immat Gran (auto) (0.00 - 0.03 x10 3/uL) 0.08 H Add Manual Diff NO Immature Gran % (0.0 - 2.0 %) 0.6 Nucleated RBC % (0 - 0 %) 0.0 Nucleated RBCs # (Man) (0.0 - 0.1 x10 3/uL) 0.00 Laboratory Tests: 08/28 08/28 08/28 08/28 1709 1302 1218 0624 Chemistry POC Glucose (70 - 110 MG/DL) 103 206 H 185 H 180 H 08/28 08/27 08/27 0420 2050 1825 [...] (Auto) (14.0 - 32.0 %) 8.2 L [place] % (Auto) (4.8 - 9.0 %) 4.1 L Eos % (Auto) (0.3 - 3.7 %) 0.4 Baso % (Auto) (0.0 - 2.0 %) 0.1 Neut # (Auto) (2.0 - 7.6 x10 3/uL) 11.92 H Lymph # (Auto) (1.0 - 3.8 x10 3/uL) 1.13 [place] # (Auto) (0.1 - 0.8 x10 3/uL) 0.57 Eos # (Auto) (0.0 - 0.2 x10 3/uL) 0.05 Baso # (Auto) (0.0 - 0.2 x10 3/uL) 0.01 Abs Immat Gran (auto) (0.00 - 0.03 x10 3/uL) 0.07 H Add Manual Diff NO Immature Gran % (0.0 - 2.0 %) 0.5 Nucleated RBC % (0 - 0 %) 0.0 Nucleated RBCs # (Man) (0.0 - 0.1 x10 3/uL) 0.00 Microbiology: Date/Time Procedure - Status Source Growth 08/29 1347 Blood Culture - RECD BLOOD 08/29 1347 Blood Culture - RECD BLOOD Recent Impressions:ULTRASOUND - DUP VEIN UNI/LTD 08/28 856 Report Impression - Status: SIGNED Entered: 08/28/202224 IMPRESSION: 1. No evidence of venous thrombosis involving left lower extremity. 2. Approximately 8 x 2 x 1.3 cm complex fluid collection along the left upper calf probably representing a small hematoma. Impression By: [email or web address] - Roger Parra M.D.RADIOLOGY - XR FLUOROSCOPY 0-60 MIN 08/281 Report Impression - Status: SIGNED Entered: 08/28/2022 1120 IMPRESSION: Fluoroscopy dosage documentation. See also separate procedure notes. Impression By: [email or web address] - Bishop [...] (Auto) (14.0 - 32.0 %) 7.0 L [place] % (Auto) (4.8 - 9.0 %) 3.3 L Eos % (Auto) (0.3 - 3.7 %) 0.3 Baso % (Auto) (0.0 - 2.0 %) 0.1 Neut # (Auto) (2.0 - 7.6 x10 3/uL) 14.14 H Lymph # (Auto) (1.0 - 3.8 x10 3/uL) 1.11 [place] # (Auto) (0.1 - 0.8 x10 3/uL) 0.52 Eos # (Auto) (0.0 - 0.2 x10 3/uL) 0.04 Baso # (Auto) (0.0 - 0.2 x10 3/uL) 0.02 Abs Immat Gran (auto) (0.00 - 0.03 x10 3/uL) 0.10 H Add Manual Diff NO Immature Gran % (0.0 - 2.0 %) 0.6 Nucleated RBC % (0 - 0 %) 0.0 Nucleated RBCs # (Man) (0.0 - 0.1 x10 3/uL) 0.00 Microbiology: Date/Time Procedure - Status Source Growth [...] (Auto) (14.0 - 32.0 %) 7.4 L [place] % (Auto) (4.8 - 9.0 %) 3.9 L Eos % (Auto) (0.3 - 3.7 %) 0.5 Baso % (Auto) (0.0 - 2.0 %) 0.1 Neut # (Auto) (2.0 - 7.6 x10 3/uL) 15.49 H Lymph # (Auto) (1.0 - 3.8 x10 3/uL) 1.31 [place] # (Auto) (0.1 - 0.8 x10 3/uL) 0.69 Eos # (Auto) (0.0 - 0.2 x10 3/uL) 0.08 Baso # (Auto) (0.0 - 0.2 x10 3/uL) 0.01 Abs Immat Gran (auto) (0.00 - 0.03 x10 3/uL) 0.11 H Add Manual Diff NO Immature Gran % (0.0 - 2.0 %) 0.6 Nucleated RBC % (0 - 0 %) 0.0 Nucleated RBCs # (Man) (0.0 - 0.1 x10 3/uL) 0.00 Laboratory Tests: 08/25 08/25 08/25 08/25 1723 1111 1044 1044 Chemistry Potassium (3.4 - 5.0 mEq/L) 4.5 POC Glucose (70 - 110 MG/DL) 132 H 143 H Total Creatine Kinase (46 - 171 Units/L) 17 L Urines Urine Color (YEL/STRAW) YELLOW Urine Appearance (CLEAR) TURBID H Urine pH (5.0 - 7.0) 5.0 Ur Specific [place] (1.005 - 1.030) 1.012 Urine Protein (NEGATIVE) [...] (Auto) (14.0 - 32.0 %) 8.1 L [place] % (Auto) (4.8 - 9.0 %) 4.3 L Eos % (Auto) (0.3 - 3.7 %) 0.5 Baso % (Auto) (0.0 - 2.0 %) 0.1 Neut # (Auto) (2.0 - 7.6 x10 3/uL) 15.44 H Lymph # (Auto) (1.0 - 3.8 x10 3/uL) 1.45 [place] # (Auto) (0.1 - 0.8 x10 3/uL) 0.77 Eos # (Auto) (0.0 - 0.2 x10 3/uL) 0.09 Baso # (Auto) (0.0 - 0.2 x10 3/uL) 0.02 Abs Immat Gran (auto) (0.00 - 0.03 x10 3/uL) 0.13 H Add Manual Diff NO Immature Gran % (0.0 - 2.0 %) 0.7 Nucleated RBC % (0 - 0 %) 0.0 Nucleated RBCs # (Man) (0.0 - 0.1 x10 3/uL) 0.00 Microbiology: Date/Time Procedure - Status Source Growth 08/25 1044 Urine Culture - WKST URINE 08/25 1044 Blood Culture - RECD BLOOD 08/25 104 Blood Culture - RECD BLOOD Laboratory Tests: 08/20 08/20 08/20 08/20 08/20 1107 0756 0647 0554 0454Chemistry Sodium (134 - 147 mEq/L) 137 Potassium [...] L Albumin (3.4 - 5.0 g/dL) 2.00 LHematology WBC (4.5 - 11.0 x10 3/uL) 22.8 [...] (Auto) (14.0 - 32.0 %) 4.8 L [place] % (Auto) (4.8 - 9.0 %) 2.9 L Eos % (Auto) (0.3 - 3.7 %) 0.0 L Baso % (Auto) (0.0 - 2.0 %) 0.2 Neut # (Auto) (2.0 - 7.6 x10 3/uL) 19.90 H Lymph # (Auto) (1.0 - 3.8 x10 3/uL) 1.10 [place] # (Auto) (0.1 - 0.8 x10 3/uL) 0.66 Eos # (Auto) (0.0 - 0.2 x10 3/uL) 0.00 Baso # (Auto) (0.0 - 0.2 x10 3/uL) 0.04 Abs Immat Gran (auto) (0.00 - 0.03 1.12 Hx10 3/uL) Add Manual Diff NO Immature Gran % (0.0 - 2.0 %) 4.9 H Nucleated RBC % (0 - 0 %) 0.0 Nucleated RBCs # (Man) (0.0 - 0.1 0.00x10 3/uL) 08/20 08/20 08/19 08/19 08/19 0259 [...] (37.5 - 50.7 %) 21.8 L 08/193 2130 2014 172 1652Chemistry Sodium (134 - 147 mEq/L) 133 L [...] 2.03 Albumin (3.4 - 5.0 g/dL) 1.40 LHematology WBC (4.5 - 11.0 x10 3/uL) 20.3 [...] (Auto) (14.0 - 32.0 %) 3.8 L [place] % (Auto) (4.8 - 9.0 %) 3.7 L Eos % (Auto) (0.3 - 3.7 %) 0.0 L Baso % (Auto) (0.0 - 2.0 %) 0.3 Neut # (Auto) (2.0 - 7.6 x10 3/uL) 17.97 H Lymph # (Auto) (1.0 - 3.8 x10 3/uL) 0.76 L [place] # (Auto) (0.1 - 0.8 x10 3/uL) 0.74 Eos # (Auto) (0.0 - 0.2 x10 3/uL) 0.00 Baso # (Auto) (0.0 - 0.2 x10 3/uL) 0.07 Abs Immat Gran (auto) (0.00 - 0.03 0.71 Hx10 3/uL) Add Manual Diff NO Immature Gran % (0.0 - 2.0 %) 3.5 H Nucleated RBC % (0 - 0 %) 0.0 Nucleated RBCs # (Man) (0.0 - 0.1 0.00x10 3/uL) 08/19 08/19 1622 1601 Chemistry POC Glucose (70 - 110 MG/DL) 232 H Urines Urine Color (YEL/STRAW) YELLOW Urine Appearance (CLEAR) SL CLOUDY Urine pH (5.0 - 7.0) 5.0 Ur Specific [place] (1.005 - 1.030) 1.013 Urine Protein (NEGATIVE) [...] (Auto) (14.0 - 32.0 %) 4.3 L [place] % (Auto) (4.8 - 9.0 %) 3.1 L Eos % (Auto) (0.3 - 3.7 %) 0.0 L Baso % (Auto) (0.0 - 2.0 %) 0.3 Neut # (Auto) (2.0 - 7.6 x10 3/uL) 19.17 H Lymph # (Auto) (1.0 - 3.8 x10 3/uL) 0.91 L [place] # (Auto) (0.1 - 0.8 x10 3/uL) 0.67 Eos # (Auto) (0.0 - 0.2 x10 3/uL) 0.01 Baso # (Auto) (0.0 - 0.2 x10 3/uL) 0.07 Abs Immat Gran (auto) (0.00 - 0.03 x10 3/uL) 0.51 H Add Manual Diff NO Immature Gran % (0.0 - 2.0 %) 2.4 H Nucleated RBC % (0 - 0 %) 0.0 Nucleated RBCs # (Man) (0.0 - 0.1 x10 3/uL) 0.00 08/18 08/18 08/18 08/18 2246 2157 1854 [...] 1209 Gram Stain - RES ABSCESS Recent Impressions:ULTRASOUND - [facility] [employer] UNI/LTD 08/19 0950 Report Impression - Status: SIGNED Entered: 08/19/2022 1056 IMPRESSION: No sonographic evidence for flow-limiting stenosis in the right lower extremity arterial system. Impression By: [email or web address] - Abraham Ross M.D. Laboratory Tests: 08/18 08/18 08/18 08/18 08/18 1430 1430 1404 1309 1203Chemistry Sodium (134 - 147 mEq/L) 131 L [...] 20.0 L Cholesterol/HDL Ratio (3.43 - 4.97 4.00RATIO) TSH (0.42 - 5.47) 0.96 Free T4 (0.77 - 1.61 ng/dL) 0.7 L 08/18 08/18 08/18 08/18 08/18 1107 1004 0900 0823 0549 Chemistry POC Glucose (70 - 110 MG/DL) 223 H 304 H 405 H 449 H Hemoglobin A1c (4.8 - 6.0 %A1C) 13.4 H 08/18 08/18 08/18 0549 0305 0207Blood Gas Puncture Site R Radial O2 Saturation [...] O2 Delivery Device Room Air FiO2 (%) 21Chemistry Sodium (134 - 147 mEq/L) 121 *L [...] 2.34 Albumin (3.4 - 5.0 g/dL) 1.60 LSerology Influenza Type A (PCR) (Negative) Negative Influenza Type B (PCR) (Negative) NegativeToxicology Acetone, Quant (Neg - <20 mg/dL) Large [...] Culture Gram Stain - RES BLOOD Recent Impressions:RADIOLOGY - XR CHEST 2 V 08/18 0201 Report Impression - Status: SIGNED Entered: 08/18/2022 0317 IMPRESSION: Ill-defined somewhat nodular opacity measuring 3.2 cm laterally in the right mid lung suspicious for rounded pneumonia given provided history, but underlying neoplasm can not be excluded. Followup radiographs are recommended after appropriate treatment in order to document complete resolution and exclude an underlying process or neoplasm. Impression By: [email or web address] - Dom Adams M.D.RADIOLOGY - XR FOOT 3 + V RT 08/18 0238 Report Impression - Status: SIGNED Entered: 08/18/2022 0358 IMPRESSION: No acute osseous findings. No convincing evidence for osteomyelitis. MRI is more sensitive for detecting osteomyelitis.Impression By: Ankur Ladd M.D.CAT SCAN - CT ABD PELVIS W/CONT 08/18 0339 Report Impression - Status: SIGNED Entered: 08/18/2022 0546 IMPRESSION: 3.3 cm hypodensity in the left posterior prostate or seminal vesicle. This could represent an abscess. Contrast-enhanced MRI of the pelvis would be helpful for further evaluation.No acute intra-abdominal findings otherwise.Impression By: Ankur Ladd M.D.CAT SCAN - CT LOWER EXTRM W/O C RT 08/18 0645 Report Impression - Status: SIGNED Entered: 08/18/2022 0827 IMPRESSION: Extensive soft tissue edema with mottled gas in the subcutaneous and intramuscular compartments of the foot compatible with gas-forming infection. Disease extends into the visualized distal leg. Impression By: Jamel Dorantes M.D. 1. 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 DKA3. Cellulitis and gangrene of the right foot.4. Sepsis5. Altered mental status6. High LFTsBlood sugar 65-81 mg/dL.HbA1c 13.4%White count 17.9Sodium 121.Adjust insulin dose.Wound care and IV antibiotics.S/P wound debridement. at 1804 RPT #:[id number] OF REPORTPRProgress [id number]:03:00G.[id number] able for patient cgccWCMCNPOVHTQEOW8566-30-77S99:05:15 [facility] 2022-08-30 17:43:00 [id number] l2AJWUwMnrK/VzpzC4StTR1WgQmYD G2+jXtfY6vZl0kNCRNujZz9WHrN8735-14-22O93:43:00 [facility] Progress NoteREPORT#:[id number] REPORT STATUS: SignedDATE:08/30/22 TIME: 1743 PATIENT: KARMA ROWLAND UNIT #: [id number]#: [id number] [address] [birth year] AGE: 56 SEX: M ATTEND: Wilbert Ramires MDADM AUTHOR: Nixon Leroy MD * ALL edits or amendments must be made on the electronic/computer document * SubjectiveChief complaint:right foot/ankle infectionHPI:56 yo male evaluated at bedside. He is doing well 2 days post op. Denies any significant phantom pain. Pain overall is well controlled. Flotech brace is in place. Transferred to intermediate care. ObjectiveVS:Last Documented: Result Date Time Pulse Ox 99 08/30 1653 B/P 160/75 08/30 1653 B/P Mean 0.0 08/30 165 Temp 36.9 08/30 165 Pulse 83 08/30 1653 Resp 13 08/30 1653 O2 Delivery Room air 08/28 1235 O2 Flow Rate 7 08/28 1222 PATIENT WEIGHT: Weight (lb): 154Weight (oz): 1.65Weight (kg): 69.900 Medications:Active Meds + DC'd Last 24 HrsInsulin Human Lispro (HUMALOG) 5 UNIT AC SUBQ Lidocaine (LIDODERM) 1 PATCH DAILY TOPICAL Insulin Glargine (Lantus/Semglee) 20 UNIT BEDTIME SUBQ Hydromorphone HCl (DILAUDID) 1 MG Q3H PRN PRN IV Hydromorphone HCl (DILAUDID) 0.5 MG Q3H PRN PRN IV Cefazolin Sodium (KEFZOL OR ANCEF) 1 GM Q8H IV (DC) Sodium Chloride (SODIUM CHLORIDE) 10 MLMeropenem (MEROPENEM) 500 MG Q6H IV Sterile Water (WATER FOR INJECTION) 10 MLDaptomycin (CUBICIN 500MG) 700 MG Q24H IV (CKD) Sodium Chloride (SODIUM CHLORIDE 0.9%) 50 MLFamotidine (PEPCID) 20 MG BID PO Lorazepam (ATIVAN) 1 MG ONCE PRN IV Sodium Chloride (SODIUM CHLORIDE) 0 ASDIR PRN IV Insulin Human Lispro (HUMALOG) 0 AC HS SUBQ Dextrose/Water (DEXTROSE 10% IN WATER) 125 ML ASDIR PRN IV (CKD) Dextrose/Water (DEXTROSE 10% IN WATER) 250 ML ASDIR PRN IV (CKD) Glucagon (GLUCAGON) 1 MG ASDIR PRN IM Dextrose/Water (Dextrose 10% 1,000 mL) 1,000 ML ASDIR IV Acetaminophen (TYLENOL) 650 MG Q6H PRN PRN PO Bisacodyl (DULCOLAX) 10 MG DAILY PRN PRN RECTAL Docusate Sodium (COLACE) 100 MG Q12H PRN PRN PO Ondansetron HCl (ZOFRAN) 4 MG Q6H PRN PRN IV Heparin Sodium (HEPARIN 5000 UNITS/ML) 5,000 UNIT Q8HR SUBQ Physical ExamGeneral appearance: alert, awake, orientedLower leg-right: below knee amputation changes, staple line intact, mild bruising, stump soft and perfused. intact ROM of knee. ResultsFindings/data:Laboratory Tests 08/30 08/30 08/30 08/30 08/29 1651 1218 0800 544 2010 Chemistry Sodium (134 - 147 mEq/L) [...] - 2.40 mg/dL) 2.01 Laboratory Tests 08/30 544 Hematology WBC (4.5 - 11.0 x10 3/uL) [...] (Auto) (14.0 - 32.0 %) 13.4 L [place] % (Auto) (4.8 - 9.0 %) 6.3 Eos % (Auto) (0.3 - 3.7 %) 0.8 Baso % (Auto) (0.0 - 2.0 %) 0.2 Neut # (Auto) (2.0 - 7.6 x10 3/uL) 9.96 H Lymph # (Auto) (1.0 - 3.8 x10 3/uL) 1.69 [place] # (Auto) (0.1 - 0.8 x10 3/uL) 0.79 Eos # (Auto) (0.0 - 0.2 x10 3/uL) 0.10 Baso # (Auto) (0.0 - 0.2 x10 3/uL) 0.02 Abs Immat Gran (auto) (0.00 - 0.03 x10 3/uL) 0.08 H Add Manual Diff NO Immature Gran % (0.0 - 2.0 %) 0.6 Nucleated RBC % (0 - 0 %) 0.0 Nucleated RBCs # (Man) (0.0 - 0.1 x10 3/uL) 0.00 Diagnosis, Assessment PlanFree text A P:56 yo male with hx of DM and 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 1. PT/OT- NWB RLE2. Flotech brace on at all times. 3. Dressing changes as needed. 4. Pain control prn. 5. DVT ppx. 6. Hemovac d/c today. Minimal output. 7. Continue carre per floor. Please call with any questions or concerns. at 1747 RPT #:[id number] OF REPORTPRProgress [id number]:43:00G.[id number] able for patient mcyxVQRSQKPXZMRJLL9132-26-72F75:48:04 [facility] 2022-08-30 11:46:00 [id number] qKdT/TGMQ7epXoy54NVe4jaTr0ABl 5v1Xw0R0bmek4GS56xyWV5JEJ9N5933-30-27A25:46:00 [facility])Hospitalist Progress NoteREPORT#:[id number] REPORT STATUS: SignedDATE:08/30/22 TIME: 1146 PATIENT: KARMA ROWLAND UNIT #: [id number]#: [id number] ROOM/BED: 458-1DOB: [birth year] AGE: 56 SEX: M ATTEND: Wilbert Ramires MDADM AUTHOR: Musa Enriquez MD * ALL edits or amendments must be made on the electronic/computer document * SubjectiveChief complaint:AMS and right foot infection. s/p extensivedebridement. s/p BKA. pain controlled Review of SystemsAll systems rev neg: except as noted Objective GeneralVS/I O:Vital Signs: Date Time Temp Pulse Resp B/P B/P Pulse O2 O2 Flow FiO2 Mean Ox Delivery Rate 08/30 1944 36.9 95 15 162/76 0.0 100 Room air 08/30 1653 36.9 83 13 160/75 0.0 99 04/08 1303 88 08/30 1300 91 17 154/72 104 97 04/08 [...] 17 127/58 84 99 04/08 0000 36.9 04/07 2300 80 16 98 04/07 2200 83 17 98 04/07 2100 93 21 100 24 hour I O ending at 0700: 04/08 0700 04/07 1900 Intake Total 270.00 1020.00 Output Total 750 4975 Balance -480.00 -3955.00 Intake, IV 30.00 80.00 Intake, Oral 240 240 Intake, Oral 400 Supplement Intake, Other 300 Number 2 1 Bowel Movements Output, 0 Drainage Output, Urine 750 4975 PATIENT WEIGHT: Weight (lb): 154Weight (oz): 1.65Weight (kg): 69.900 Medications:Active Meds + DC'd Last 24 HrsInsulin Glargine (Lantus/Semglee) 15 UNIT BEDTIME SUBQ Insulin Human Lispro (HUMALOG) 5 UNIT AC SUBQ Lidocaine (LIDODERM) 1 PATCH DAILY TOPICAL Insulin Glargine (Lantus/Semglee) 20 UNIT BEDTIME SUBQ (DC) Hydromorphone HCl (DILAUDID) 1 MG Q3H PRN PRN IV Hydromorphone HCl (DILAUDID) 0.5 MG Q3H PRN PRN IV Cefazolin Sodium (KEFZOL OR ANCEF) 1 GM Q8H IV (DC) Sodium Chloride (SODIUM CHLORIDE) 10 MLMeropenem (MEROPENEM) 500 MG Q6H IV Sterile Water (WATER FOR INJECTION) 10 MLDaptomycin (CUBICIN 500MG) 700 MG Q24H IV (CKD) Sodium Chloride (SODIUM CHLORIDE 0.9%) 50 MLFamotidine (PEPCID) 20 MG BID PO Lorazepam (ATIVAN) 1 MG ONCE PRN IV Sodium Chloride (SODIUM CHLORIDE) 0 ASDIR PRN IV Insulin Human Lispro (HUMALOG) 0 AC HS SUBQ Dextrose/Water (DEXTROSE 10% IN WATER) 125 ML ASDIR PRN IV (CKD) Dextrose/Water (DEXTROSE 10% IN WATER) 250 ML ASDIR PRN IV (CKD) Glucagon (GLUCAGON) 1 MG ASDIR PRN IM Dextrose/Water (Dextrose 10% 1,000 mL) 1,000 ML ASDIR IV Acetaminophen (TYLENOL) 650 MG Q6H PRN PRN PO Bisacodyl (DULCOLAX) 10 MG DAILY PRN PRN RECTAL Docusate Sodium (COLACE) 100 MG Q12H PRN PRN PO Ondansetron HCl (ZOFRAN) 4 MG Q6H PRN PRN IV Heparin Sodium (HEPARIN 5000 UNITS/ML) 5,000 UNIT Q8HR SUBQ Physical ExamHead/Eyes: normocephalicENT: moist mucosal membranesNeck: no JVDCardiovascular: regular rate rhythm, no heaveRespiratory: aerating well, clear to auscultation, symmetric expansion, no distressAbdomen: non-tender, normal bowel sounds, soft, no distentionGenitourinary: no bladder distentionExtremities: R foot in dressingNeuro/DIRECTOR OPERATING ROOM: alert, oriented X 3, 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 Considered stroke alert: noSkin: no rashPsychiatry: normal affect, normal judgment/insight, normal mood Diagnosis, Assessment Plan Free Text DxA P NotesFree text DxA P notes:DKADM 2, poorly controlledsevere gas gangrene, right foot/necrotizing fascitis - s/p BKAMRSA bacteremiaAKIsevere hyponatremia likely due to combination of severe hyperglycemia and dehydration from DKAsepsis due to foot infectionDM neuropathyHTNanemia, acute due to blood lossleft calf hematomaprostatic abscess with Citrobacter and enterococcus Plans: - admit to ICU - continue [...] planning for I D today. Surgery on standby if needed to further debride his lower leg vs amputation. - WBC improving - will type and cross for blood and transfuse if less than 7 gms - d.w at [...] wean off insulin drip. Subq insulin and sliding scale. 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 will likely need wound vac at some point - off [...] transfuse blood for anemia. no overt blood loss - continue IV antibiotics - mobilize - pulse lavage to wound. ? wound vac - continue to monitor blood sugars - floor transfer - d/w 08/24/2022 - follow hgb and transfuse as needed - IV antibiotics - anesthesia consult for MRI - blood sugars ok - pulse lavage - await podiatry eval for wound care - ? wound vac - d.w at bedside 08/25/22Continue abx (Dapto and Teflaro) as per IDUpdated Urology on MRI results, Dr. Du will review images and discuss with family for possible prostate/seminal vesicle abscessCont wound care as per Podiatry, may have debridement today BP and BS well controlled K+ high, repeat levelHgb 7.3 stableDiscussed with at bedside 08/26/2022 - hgb low. will transfuse 2 units - d.w Dr. Pedersen - patient has lost so much tissues in his foot that his potential for wound closure and usability of his foot is poor. Recommendations made to proceed with BKA - continue to monitor blood sugars - IV antibitoics - wound care - urology planning for aspiration of prostatic cyst seen on MRI. PSA normal - OOB 08/27/22s/p transfusion planned for BKA IV antibiotics Wound care DM - managed with insulin DVT prophylaxis 08/28/2022 - noted left leg swelling and pain - patient on Heparin SQ for VTE. will order stat venous US - planning for right BKA today - continue IV antibiotics per ID - follow blood sugars closely - will need PT/OT and possible rehab post surgery - d/w at bedside 08/29/2022 - US [...] and transfuse if hgb less than 7 gms - Heparin SQ for VTE 08/30/22 s/p BKA. doing well IV antibiotics PT/ OT possible rehab monitor hb transfer to floor / IMCU at 2047 RPT #:[id number] OF REPORTPRProgress [id number]:46:00G.[id number] able for patient apdyUGDGSIBITMTZDL6679-57-63E37:47:47 [facility] 2022-08-30 06:58:00 [id number]/YaMz2 B7wt1KeFMxPLYJEt6agbVvvbusUXq H0LRqdM8mhu24TxsoYOhW8DUhWc3621-48-66X58:58:00 [facility] ([facility])Rehab Progress NoteREPORT#:[id number] REPORT STATUS: SignedDATE:08/30/22 TIME: 06 PATIENT: KARMA ROWLAND UNIT #: [id number]#: [id number] [address] [birth year] AGE: 56 SEX: M ATTEND: Wilbert Ramires [facility] AUTHOR: Guero Candelaria * ALL edits or amendments must be made on the electronic/computer document * SubjectiveChief complaint:Rehab follow-upSeen in ICUDoing wellWaiting on breakfastStates pain fairly well controlled Denies DICKENS/N/V/D/CP14 systems reviewed and neg. except that above. Objective GeneralVS:Vital Signs: Date Time Temp Pulse Resp B/P B/P Pulse O2 O2 Flow FiO2 Mean Ox Delivery Rate 08/30 0400 98.4 08/30 0300 87 17 08/30 0200 83 17 110/56 78 08/30 0100 84 17 08/30 0025 89 17 127/58 84 99 04 0000 98.4 08/29 2300 80 16 98 08/29 2200 83 17 98 08/29 2100 93 21 100 08/29 2001 93 17 141/65 94 100 08/29 2000 98.6 08/29 1900 91 13 163/75 108 99 04/07 1851 92 22 98 04/07 1800 90 [...] 04/07 0800 98.2 PATIENT WEIGHT: Weight (lb): 154Weight (oz): 1.65Weight (kg): 69.900 Medications:Active Meds + DC'd Last 24 HrsInsulin Human Lispro (HUMALOG) 5 UNIT AC SUBQ Lidocaine (LIDODERM) 1 PATCH DAILY TOPICAL Insulin Glargine (Lantus/Semglee) 20 UNIT BEDTIME SUBQ Hydromorphone HCl (DILAUDID) 1 MG Q3H PRN PRN IV Hydromorphone HCl (DILAUDID) 0.5 MG Q3H PRN PRN IV Cefazolin Sodium (KEFZOL OR ANCEF) 1 GM Q8H IV (DC) Sodium Chloride (SODIUM CHLORIDE) 10 MLMeropenem (MEROPENEM) 500 MG Q6H IV Sterile Water (WATER FOR INJECTION) 10 MLDaptomycin (CUBICIN 500MG) 700 MG Q24H IV (CKD) Sodium Chloride (SODIUM CHLORIDE 0.9%) 50 MLFamotidine (PEPCID) 20 MG BID PO Lorazepam (ATIVAN) 1 MG ONCE PRN IV Sodium Chloride (SODIUM CHLORIDE) 0 ASDIR PRN IV Insulin Human Lispro (HUMALOG) 7 UNIT AC SUBQ (DC) Insulin Human Lispro (HUMALOG) 0 AC HS SUBQ Dextrose/Water (DEXTROSE 10% IN WATER) 125 ML ASDIR PRN IV (CKD) Dextrose/Water (DEXTROSE 10% IN WATER) 250 ML ASDIR PRN IV (CKD) Glucagon (GLUCAGON) 1 MG ASDIR PRN IM Dextrose/Water (Dextrose 10% 1,000 mL) 1,000 ML ASDIR IV Acetaminophen (TYLENOL) 650 MG Q6H PRN PRN PO Bisacodyl (DULCOLAX) 10 MG DAILY PRN PRN RECTAL Docusate Sodium (COLACE) 100 MG Q12H PRN PRN PO Ondansetron HCl (ZOFRAN) 4 MG Q6H PRN PRN IV Heparin Sodium (HEPARIN 5000 UNITS/ML) 5,000 UNIT Q8HR SUBQ Functional ProgressFunctional progress: Bed Mobility - Rolling: Minimal Assistance Bed Mobility - Supine to Sit: Moderate Assistance Bed Mobility - Sit to Supine: Moderate Assistance Scooting: Moderate Assistance Sit to Stand: Dependent Static Sitting: Minimal Assistance Dynamic Sitting: Minimal Assistance Static Standing: Dependent Dynamic Standing: Not Tested Functional Exercises: SUPINE EXERCISES Durable Medical Equipment Currently Utilized: Hospital Bed RW Effects of Treatment: Function Improved Safety awareness improved Self management improved Post [place] Precautions: In Bed, rails Up Bed Alarm Record Filing Clerk Light in Reach Nursing Notified Pulse OX in Place Document Pain/Education: No Functional Mob.Cmt: Pt SEEN FOR RE-EVAL AND FUNC MOBILITY. SEE RE-EVAL FOR DETAILS. Physical ExamGeneral appearance: alert, awake, oriented, no acute distressPsych: alert, normal affect, oriented x 3HEENT: anicteric, sclera clearNeck: supple, no JVDCardiovascular: regular rate rhythm, S1/W3Kcosneugosb: aerating well, clear bilaterally, clear to auscultationAbdomen: bowel sounds present, non-distended, softSkin: R BKA wrapped with kerlix and JOAN, Left foot/ankle wrappedMusculoskeletal - general: Musculoskeletal - general: MMT BUE 5/5, LLE 4/5, R hip 3-, R knee in maxine-techorthoticNeuro/DIRECTOR OPERATING ROOM: alert, oriented X 3, CNII-XII intact ResultsFindings/Data:Laboratory Tests: 08/3045 2010 1655 1041 0912Chemistry Sodium (134 - 147 mEq/L) 136 Potassium [...] MG/DL) 4.6 Magnesium (1.80 - 2.40 mg/dL) 2.01Hematology WBC (4.5 - 11.0 x10 3/uL) 12.6 [...] (Auto) (14.0 - 32.0 %) 13.4 L [place] % (Auto) (4.8 - 9.0 %) 6.3 Eos % (Auto) (0.3 - 3.7 %) 0.8 Baso % (Auto) (0.0 - 2.0 %) 0.2 Neut # (Auto) (2.0 - 7.6 x10 3/uL) 9.96 H Lymph # (Auto) (1.0 - 3.8 x10 3/uL) 1.69 [place] # (Auto) (0.1 - 0.8 x10 3/uL) 0.79 Eos # (Auto) (0.0 - 0.2 x10 3/uL) 0.10 Baso # (Auto) (0.0 - 0.2 x10 3/uL) 0.02 Abs Immat Gran (auto) (0.00 - 0.03 0.08 Hx10 3/uL) Add Manual Diff NO Immature Gran % (0.0 - 2.0 %) 0.6 Nucleated RBC % (0 - 0 %) 0.0 Nucleated RBCs # (Man) (0.0 - 0.1 0.00x10 3/uL) 08/29 0844 Chemistry POC Glucose (70 - 110 MG/DL) 70 Diagnosis, Assessment PlanFree Text A P:Severe Gas gangrene right foot and right ankle associated with osteomyelitis andnecrotizing fasciitisS/p surgical debridement and washoutS/p right BKASignificant impairment in self-care, ADLs and functional mobilityImpaired mobility and gaitPostoperative painDiabetic polyneuropathyDKA, DM 2, poorly controlledMinimal PADMRSA bacteremia/sepsisAKISevere hyponatremia-resolvedHTNAcute on chronic anemia requiring multiple transfusionsLeft calf hematomaEdema and clinical arthritis left ankleProstatic abscess s/p transrectal ultrasound aspiration of abscess and transurethral resection of prostate and unroofing of abscess Echo: EF 55-59%, grade 1 diastolic dysfunctionHypoalbuminemia Plan:-Continue PT and OT-Case management for safe discharge planning.-Decubitus prevention-Nutrition, monitor the patient's p.o. intake, albumin 1.3, check prealbumin, dietary consultation, protein supplements promote healing-Strict fall and safety precaution-DVT prophylaxis-subcutaneous heparin-GI prophylaxis on Pepcid-Early mobilization-OOB to chair-Work on bed mobility, transfer training, ADLs, pre-gait and gait exercises as tolerable. -Increase endurance and strength-Pain management-patient requiring IV Dilaudid-Glycemic control as per endo-blood sugars much improved-Monitor labs-WBC trending down, hemoglobin 7.1, sodium normal, creatinine 1.5-Has received multiple units of PRBCs-check CBC in a.m.-ID requesting JIMENA to rule out endocarditis, continue ABX-Patient on CBI and urine is clear- following-Edema and clinical arthritis left ankle-Lidoderm patch and Joan wrap-NWB right BKA, continue Maxine-tech orthotic, I will examine incision on Thursday-Right BKA amputee rehab-Excellent candidate for inpatient rehab, admit preauthorization if okay with rehabilitation admissions. Referral to E[facility] rehab ordered. [facility]We will continue to monitor patients progress and make further recommendations Total time was 33 minutes > 50% with patient performing physical examination, discussing plan of care, goals, therapies, progress, medications, labs. All questions answeredRehab attestation:. at 0920 RPT #:[id number] OF REPORTPRProgress [id number]:58:00G.[id number] able for patient dpciPHTAMBATPUEENZ5361-77-13I56:21:25 [facility] 2022-08-29 19:46:00 [id number] ryiB7e37/jnIcUREEb71HZdR+uM3763-87-38P93:46:00 [facility])Podiatry Progress NoteREPORT#:[id number] REPORT STATUS: SignedDATE:08/29/22 TIME: 1945 PATIENT: KARMA ROWLAND UNIT #: [id number]#: [id number] [address] [birth year] AGE: 56 SEX: M ATTEND: Wilbert Ramires [facility] AUTHOR: Liam Pedersen DPM * ALL edits or amendments must be made on the electronic/computer document * SubjectiveChief complaint:seen at bedside,. family memebers next to him denies having any pain foot covered and protected and offloaded drainage noted serosang. increased warmthPatient reports: no confusion, no constipation, no diarrhea, no fatigue, no headache, no heartburn, no itching Objective GeneralVS:Last Documented: Result Date Time Pulse Ox 99 08/29 1900 B/P 163/75 08/29 1900 B/P Mean 108 08/29 1900 Pulse 91 08/29 1900 Resp 13 08/29 190 Temp 36.8 08/29 1600 O2 Delivery Room air 08/28 1235 O2 Flow Rate 7 08/28 1222 PATIENT WEIGHT: Weight (lb): 154Weight (oz): 1.65Weight (kg): 69.900 Medications:Active Meds + DC'd Last 24 HrsInsulin Human Lispro (HUMALOG) 5 UNIT AC SUBQ Lidocaine (LIDODERM) 1 PATCH DAILY TOPICAL Insulin Glargine (Lantus/Semglee) 20 UNIT BEDTIME SUBQ Hydromorphone HCl (DILAUDID) 1 MG Q3H PRN PRN IV Hydromorphone HCl (DILAUDID) 0.5 MG Q3H PRN PRN IV Cefazolin Sodium (KEFZOL OR ANCEF) 1 GM Q8H IV Sodium Chloride (SODIUM CHLORIDE) 10 MLMeropenem (MEROPENEM) 500 MG Q6H IV Sterile Water (WATER FOR INJECTION) 10 MLDaptomycin (CUBICIN 500MG) 700 MG Q24H IV (CKD) Sodium Chloride (SODIUM CHLORIDE 0.9%) 50 MLFamotidine (PEPCID) 20 MG BID PO Lorazepam (ATIVAN) 1 MG ONCE PRN IV Sodium Chloride (SODIUM CHLORIDE) 0 ASDIR PRN IV Insulin Human Lispro (HUMALOG) 7 UNIT AC SUBQ (DC) Insulin Human Lispro (HUMALOG) 0 AC HS SUBQ Dextrose/Water (DEXTROSE 10% IN WATER) 125 ML ASDIR PRN IV (CKD) Dextrose/Water (DEXTROSE 10% IN WATER) 250 ML ASDIR PRN IV (CKD) Glucagon (GLUCAGON) 1 MG ASDIR PRN IM Dextrose/Water (Dextrose 10% 1,000 mL) 1,000 ML ASDIR IV Acetaminophen (TYLENOL) 650 MG Q6H PRN PRN PO Bisacodyl (DULCOLAX) 10 MG DAILY PRN PRN RECTAL Docusate Sodium (COLACE) 100 MG Q12H PRN PRN PO Ondansetron HCl (ZOFRAN) 4 MG Q6H PRN PRN IV Heparin Sodium (HEPARIN 5000 UNITS/ML) 5,000 UNIT Q8HR SUBQ Physical ExamGeneral appearance: alert, awake, orientedWound/incision: Location:Right foot s/p BKA DP and PT pulses very weak left foot. Sensation is greatly decreased on the left foot. Left foot has no ulcers but has OA changes at ankle with some chronicedema.LE vascular pulse assess:Nonpalpable L posterior tibialis, Nonpalpable L dorsalis pedis Considered stroke alert: no ResultsFindings/Data:Laboratory Tests: 08/29 08/29 08/29 08/29 08/29 1655 [...] (Auto) (14.0 - 32.0 %) 10.0 L [place] % (Auto) (4.8 - 9.0 %) 5.6 Eos % (Auto) (0.3 - 3.7 %) 0.5 Baso % (Auto) (0.0 - 2.0 %) 0.1 Neut # (Auto) (2.0 - 7.6 x10 3/uL) 11.78 H Lymph # (Auto) (1.0 - 3.8 x10 3/uL) 1.42 [place] # (Auto) (0.1 - 0.8 x10 3/uL) 0.79 Eos # (Auto) (0.0 - 0.2 x10 3/uL) 0.07 Baso # (Auto) (0.0 - 0.2 x10 3/uL) 0.02 Abs Immat Gran (auto) (0.00 - 0.03 x10 3/uL) 0.08 H Add Manual Diff NO Immature Gran % (0.0 - 2.0 %) 0.6 Nucleated RBC % (0 - 0 %) 0.0 Nucleated RBCs # (Man) (0.0 - 0.1 x10 3/uL) 0.00 Diagnosis, Assessment PlanFree Text A P:Gas gangrene right foot s/p BKADiabetes with peripheral neuropathyMinimal peripheral vascular diseeseSepsisDKAEdema and arthritis left ankle IV antibioticsMonitor leukocytosisNIAS: minimal PVD right08/18 wound culture: MRSA (This one is not accurate, it is of skin that was intact)08/19 OR culture: MRSAblood cultures: MRSAdc lavageace wrap compression left anklevenous u/s left no dvt at 1948 RPT #:[id number] OF REPORTPRProgress [id number]:46:00G.[id number] able for patient cmqmGNCHQNXBAHZVOU8001-86-00S34:48:59 [facility] 2022-08-29 18:05:00 [id number] [id number]/0QWVRNpf/088v7hUQFr QdjVwTgyxLMAhBNQtjCePJTw3Ci2972-34-18C00:05:00 [facility] ([facility])Cardiology Progress NoteREPORT#:[id number] REPORT STATUS: SignedDATE:08/29/22 TIME: 1805 PATIENT: KARMA ROWLAND UNIT #: [id number]#: [id number] [facility] AGE: 56 SEX: M ATTEND: Wilbert Ramires MDADM AUTHOR: Napoleon Parham MD * ALL edits or amendments must be made on the electronic/computer document * SubjectiveChief complaint:foot infectionComments:Doing better today, no new events Telemetry: Sinus rhythm Objective GeneralVS/I O:24 hour I O ending at 0700: 04 0700 04/06 1900 Intake Total 6310.00 560.00 Output Total 4650 2700 Balance 1660.00 -2140.00 Intake, IV 60.00 80.00 Intake, Oral 250 480 Intake, Other 6000 Intake, Tube Irrigant Output, Urine 4650 2700 Patient 154 lb Weight Weight Bed scale Measurement Method Vital Signs: Date Time Temp Pulse Resp B/P B/P Pulse O2 O2 Flow FiO2 Mean Ox Delivery Rate 04/07 1700 [...] 04/06 2300 86 12 104/56 74 96 / 2200 88 11 111/56 78 96 08/280 87 14 111/56 78 96 /2099 90 18 110/57 80 96 08/28 2029 91 14 115/57 81 97 08/29 1999 99.5 08/29 1999 90 10 98/54 73 96 04/ 1930 84 10 87/55 67 96 / 1830 86 103/55 69 95 PATIENT WEIGHT: Weight (lb): 154Weight (oz): 1.65Weight (kg): 69.900 Medications:Active Meds + DC'd Last 24 HrsInsulin Human Lispro (HUMALOG) 5 UNIT AC SUBQ Lidocaine (LIDODERM) 1 PATCH DAILY TOPICAL Insulin Glargine (Lantus/Semglee) 20 UNIT BEDTIME SUBQ Hydromorphone HCl (DILAUDID) 1 MG Q3H PRN PRN IV Hydromorphone HCl (DILAUDID) 0.5 MG Q3H PRN PRN IV Cefazolin Sodium (KEFZOL OR ANCEF) 1 GM Q8H IV Sodium Chloride (SODIUM CHLORIDE) 10 MLMeropenem (MEROPENEM) 500 MG Q6H IV Sterile Water (WATER FOR INJECTION) 10 MLDaptomycin (CUBICIN 500MG) 700 MG Q24H IV (CKD) Sodium Chloride (SODIUM CHLORIDE 0.9%) 50 MLFamotidine (PEPCID) 20 MG BID PO Lorazepam (ATIVAN) 1 MG ONCE PRN IV Sodium Chloride (SODIUM CHLORIDE) 0 ASDIR PRN IV Insulin Human Lispro (HUMALOG) 7 UNIT AC SUBQ (DC) Insulin Human Lispro (HUMALOG) 0 AC HS SUBQ Dextrose/Water (DEXTROSE 10% IN WATER) 125 ML ASDIR PRN IV (CKD) Dextrose/Water (DEXTROSE 10% IN WATER) 250 ML ASDIR PRN IV (CKD) Glucagon (GLUCAGON) 1 MG ASDIR PRN IM Dextrose/Water (Dextrose 10% 1,000 mL) 1,000 ML ASDIR IV Acetaminophen (TYLENOL) 650 MG Q6H PRN PRN PO Bisacodyl (DULCOLAX) 10 MG DAILY PRN PRN RECTAL Docusate Sodium (COLACE) 100 MG Q12H PRN PRN PO Ondansetron HCl (ZOFRAN) 4 MG Q6H PRN PRN IV Heparin Sodium (HEPARIN 5000 UNITS/ML) 5,000 UNIT Q8HR SUBQ Physical ExamGeneral appearance: alert, awake, orientedNeck: no bruit/NL carotids, no JVDCardiovascular: CV assessment: abnormal S1/S2, regular rate and rhythm, no ectopyRespiratory: clear to auscultation, no distressLower extremity: LE assessment: edemaNeuro/DIRECTOR OPERATING ROOM: alert, oriented X 3 Considered stroke alert: noWound/incision: Location:right footPsychiatry: normal affect, normal judgment/insight, normal mood ResultsFindings/Data:Laboratory Tests 08/29 08/29 08/29 08/29 08/29 1655 [...] (Auto) (14.0 - 32.0 %) 10.0 L [place] % (Auto) (4.8 - 9.0 %) 5.6 Eos % (Auto) (0.3 - 3.7 %) 0.5 Baso % (Auto) (0.0 - 2.0 %) 0.1 Neut # (Auto) (2.0 - 7.6 x10 3/uL) 11.78 H Lymph # (Auto) (1.0 - 3.8 x10 3/uL) 1.42 [place] # (Auto) (0.1 - 0.8 x10 3/uL) 0.79 Eos # (Auto) (0.0 - 0.2 x10 3/uL) 0.07 Baso # (Auto) (0.0 - 0.2 x10 3/uL) 0.02 Abs Immat Gran (auto) (0.00 - 0.03 x10 3/uL) 0.08 H Add Manual Diff NO Immature Gran % (0.0 - 2.0 %) 0.6 Nucleated RBC % (0 - 0 %) 0.0 Nucleated RBCs # (Man) (0.0 - 0.1 x10 3/uL) 0.00 Laboratory Tests 08/29 0513 Chemistry Magnesium (1.80 - 2.40 mg/dL) 1.91 Diagnosis, Assessment Plan Free Text DxA P NotesFree Text DxA P Notes:Impression: 1. Preop eval/cardiac clearance2. Infected right foot gas gangrene3. DKA4. Sepsis5. Hypertension 6. Anemia Recommendation: Patient presented for evaluation of altered mental status, weakness and elevatedblood sugar. Diagnosed with DKA and sepsis. 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 Known cardiac history of hypertension and hyperlipidemia. Denies prior history of CAD, CHF or arrhythmia. EKG abnormal, NSR with anterior infarct. Vital signs stable. No prior cardiac work-up. -Check echocardiogram-Monitor telemetry for arrhythmia-Monitor blood pressure trend-Wound care and IV antibiotic therapy-Supportive care 08/19: Patient doing better postop, blood pressure control, currently in sinus rhythm, lower extremity artery Doppler negative for any significant PAD, continue current management from primary team and podiatry service, continue monitor on telemetry for arrhythmia postop, supportive care, discussed with patient and family as well as RN, will follow. 08/21: Patient overall doing well, awake and alert today. Blood pressure well controlled. Currently in sinus rhythm to sinus tachycardia, will continue to monitor. Echocardiogram shows LVEF of 55 to 69%, no regional wall motion abnormalities, grade 1 diastolic dysfunction, and mildly dilated LA. continue antibiotic therapy and wound care. Supportive care. Plan of care discussed with patient, RN and Dr. Parham. 08/22: No Significant changes from cardiac standpoint. Vital signs stable. Telemetry monitoring reviewed, sinus rhythm to sinus tachycardia. We will continue monitor, sinus tachycardia likely related to underlying infection. Continue wound care and antibiotic therapy. Supportive care. Plan of care discussed with patient, RN and Dr. Parham. 08/23: Stable cardiac status. Blood pressure and heart rate well controlled. Continue monitor telemetry. Continue wound care. Plan to transfer to floor. Supportive care. Plan of care discussed with patient, RN and Dr. Parham. 08/24: Patient overall doing well, remains stable from cardiac standpoint. Blood pressure and heart rate well controlled. No new events noted on telemetrymonitoring. Remains in sinus rhythm by physical examination. Continue wound care. Supportive care. Plan of care discussed with patient, RN and Dr. Parham. 08/25: Remain stable from cardiac standpoint. Blood pressure well controlled. Currently in sinus rhythm by physical examination. Possible plan for another wound debridement today. Pain management and supportive care. Plan of care discussed with patient, RN and Dr. Parham. 08/26: Patient remains in sinus rhythm. Blood pressure well controlled. Plan for aspiration of prostatic cyst today. Plan for right BKA on . We will continue monitor patient postoperatively. Continue antibiotic therapy. Supportive care. Plan of care discussed with patient, RN and Dr. Parham. 08/27: Patient doing well status post aspiration of prostatic abscess and TURP. Currently on continuous bladder irrigation. Hemodynamically stable. Blood pressure and heart rate well controlled. Remains in normal sinus rhythm. Plan for right BKA tomorrow. Cleared from cardiac standpoint to proceed with plannedsurgery. Supportive care. Plan of care discussed with patient, RN and Dr. Parham. 08/28: Stable cardiac status. Plan for right BKA today. Continue antibiotic therapy and wound care. Will monitor patient postoperatively for arrhythmia. Continue monitor telemetry. Pain management and supportive care. Plan of care discussed with RN and Dr. Parham. 08/29: Patient doing well, blood pressure controlled, s/p right BKA, stable cardiac status, continue current management, will follow. at 1806 RPT #:[id number] OF REPORTPRProgress [id number]:05:00G.[id number] able for patient yuisMSHKLOCMCHYBKF1422-12-93V08:07:19 [facility] 2022-08-29 17:21:00 [id number] K+[id number] kg4+WtstS3zsXSMKtaUMgjPBkGk5139-53-49G10:21:00 [facility] ([facility])Endocrinology Progress NoteREPORT#:[id number] REPORT STATUS: SignedDATE:08/29/22 TIME: 1721 PATIENT: KARMA ROWLAND UNIT #: [id number]#: [id number] [address] [birth year] AGE: 56 SEX: M ATTEND: Wilbert Ramires MDADM AUTHOR: Braxton Chapin MD * ALL edits or amendments must be made on the electronic/computer document * SubjectivePatient reports: no complaints Objective GeneralVS:Last Documented: Result Date Time Pulse Ox 98 08/29 1700 B/P 145/68 08/29 1700 B/P Mean 98 08/29 1700 Pulse 88 08/29 1700 Resp 12 08/29 1700 Temp 36.8 08/29 1600 O2 Delivery Room air 08/28 1235 O2 Flow Rate 7 08/28 1222 PATIENT WEIGHT: Weight (lb): 154Weight (oz): 1.65Weight (kg): 69.900 Medications:Active Meds + DC'd Last 24 HrsInsulin Human Lispro (HUMALOG) 5 UNIT AC SUBQ (UNV) Lidocaine (LIDODERM) 1 PATCH DAILY TOPICAL Insulin Glargine (Lantus/Semglee) 20 UNIT BEDTIME SUBQ Hydromorphone HCl (DILAUDID) 1 MG Q3H PRN PRN IV Hydromorphone HCl (DILAUDID) 0.5 MG Q3H PRN PRN IV Cefazolin Sodium (KEFZOL OR ANCEF) 1 GM Q8H IV Sodium Chloride (SODIUM CHLORIDE) 10 MLInsulin Glargine (Lantus/Semglee) 15 UNIT BEDTIME SUBQ (DC) Meropenem (MEROPENEM) 500 MG Q6H IV Sterile Water (WATER FOR INJECTION) 10 MLDaptomycin (CUBICIN 500MG) 700 MG Q24H IV (CKD) Sodium Chloride (SODIUM CHLORIDE 0.9%) 50 MLFamotidine (PEPCID) 20 MG BID PO Lorazepam (ATIVAN) 1 MG ONCE PRN IV Sodium Chloride (SODIUM CHLORIDE) 0 ASDIR PRN IV Insulin Human Lispro (HUMALOG) 7 UNIT AC SUBQ (DCr) Insulin Human Lispro (HUMALOG) 0 AC HS SUBQ Dextrose/Water (DEXTROSE 10% IN WATER) 125 ML ASDIR PRN IV (CKD) Dextrose/Water (DEXTROSE 10% IN WATER) 250 ML ASDIR PRN IV (CKD) Glucagon (GLUCAGON) 1 MG ASDIR PRN IM Dextrose/Water (Dextrose 10% 1,000 mL) 1,000 ML ASDIR IV Acetaminophen (TYLENOL) 650 MG Q6H PRN PRN PO Bisacodyl (DULCOLAX) 10 MG DAILY PRN PRN RECTAL Docusate Sodium (COLACE) 100 MG Q12H PRN PRN PO Ondansetron HCl (ZOFRAN) 4 MG Q6H PRN PRN IV Heparin Sodium (HEPARIN 5000 UNITS/ML) 5,000 UNIT Q8HR SUBQ Physical ExamGeneral appearance: alert, awake Diagnosis, Assessment PlanHospital course to date:Laboratory Tests: 08/29 08/29 08/29 08/29 08/29 1655 [...] (Auto) (14.0 - 32.0 %) 10.0 L [place] % (Auto) (4.8 - 9.0 %) 5.6 Eos % (Auto) (0.3 - 3.7 %) 0.5 Baso % (Auto) (0.0 - 2.0 %) 0.1 Neut # (Auto) (2.0 - 7.6 x10 3/uL) 11.78 H Lymph # (Auto) (1.0 - 3.8 x10 3/uL) 1.42 [place] # (Auto) (0.1 - 0.8 x10 3/uL) 0.79 Eos # (Auto) (0.0 - 0.2 x10 3/uL) 0.07 Baso # (Auto) (0.0 - 0.2 x10 3/uL) 0.02 Abs Immat Gran (auto) (0.00 - 0.03 x10 3/uL) 0.08 H Add Manual Diff NO Immature Gran % (0.0 - 2.0 %) 0.6 Nucleated RBC % (0 - 0 %) 0.0 Nucleated RBCs # (Man) (0.0 - 0.1 x10 3/uL) 0.00 Laboratory Tests: 08/28 08/28 08/28 08/28 1709 1302 1218 0624 Chemistry POC Glucose (70 - 110 MG/DL) 103 206 H 185 H 180 H 08/28 08/27 08/27 0420 2050 1825 [...] (Auto) (14.0 - 32.0 %) 8.2 L [place] % (Auto) (4.8 - 9.0 %) 4.1 L Eos % (Auto) (0.3 - 3.7 %) 0.4 Baso % (Auto) (0.0 - 2.0 %) 0.1 Neut # (Auto) (2.0 - 7.6 x10 3/uL) 11.92 H Lymph # (Auto) (1.0 - 3.8 x10 3/uL) 1.13 [place] # (Auto) (0.1 - 0.8 x10 3/uL) 0.57 Eos # (Auto) (0.0 - 0.2 x10 3/uL) 0.05 Baso # (Auto) (0.0 - 0.2 x10 3/uL) 0.01 Abs Immat Gran (auto) (0.00 - 0.03 x10 3/uL) 0.07 H Add Manual Diff NO Immature Gran % (0.0 - 2.0 %) 0.5 Nucleated RBC % (0 - 0 %) 0.0 Nucleated RBCs # (Man) (0.0 - 0.1 x10 3/uL) 0.00 Microbiology: Date/Time Procedure - Status Source Growth 08/29 1347 Blood Culture - RECD BLOOD 08/29 1347 Blood Culture - RECD BLOOD Recent Impressions:ULTRASOUND - DUP VEIN UNI/LTD 08/28 856 Report Impression - Status: SIGNED Entered: 08/28/2022 09 IMPRESSION: 1. No evidence of venous thrombosis involving left lower extremity. 2. Approximately 8 x 2 x 1.3 cm complex fluid collection along the left upper calf probably representing a small hematoma. Impression By: [email or web address] - Roger Parra M.D.RADIOLOGY - XR FLUOROSCOPY 0-60 MIN 08/28 1101 Report Impression - Status: SIGNED Entered: 08/28/2022 1120 IMPRESSION: Fluoroscopy dosage documentation. See also separate procedure notes. Impression By: [email or web address] - Bishop [...] (Auto) (14.0 - 32.0 %) 7.0 L [place] % (Auto) (4.8 - 9.0 %) 3.3 L Eos % (Auto) (0.3 - 3.7 %) 0.3 Baso % (Auto) (0.0 - 2.0 %) 0.1 Neut # (Auto) (2.0 - 7.6 x10 3/uL) 14.14 H Lymph # (Auto) (1.0 - 3.8 x10 3/uL) 1.11 [place] # (Auto) (0.1 - 0.8 x10 3/uL) 0.52 Eos # (Auto) (0.0 - 0.2 x10 3/uL) 0.04 Baso # (Auto) (0.0 - 0.2 x10 3/uL) 0.02 Abs Immat Gran (auto) (0.00 - 0.03 x10 3/uL) 0.10 H Add Manual Diff NO Immature Gran % (0.0 - 2.0 %) 0.6 Nucleated RBC % (0 - 0 %) 0.0 Nucleated RBCs # (Man) (0.0 - 0.1 x10 3/uL) 0.00 Microbiology: Date/Time Procedure - Status Source Growth [...] (Auto) (14.0 - 32.0 %) 7.4 L [place] % (Auto) (4.8 - 9.0 %) 3.9 L Eos % (Auto) (0.3 - 3.7 %) 0.5 Baso % (Auto) (0.0 - 2.0 %) 0.1 Neut # (Auto) (2.0 - 7.6 x10 3/uL) 15.49 H Lymph # (Auto) (1.0 - 3.8 x10 3/uL) 1.31 [place] # (Auto) (0.1 - 0.8 x10 3/uL) 0.69 Eos # (Auto) (0.0 - 0.2 x10 3/uL) 0.08 Baso # (Auto) (0.0 - 0.2 x10 3/uL) 0.01 Abs Immat Gran (auto) (0.00 - 0.03 x10 3/uL) 0.11 H Add Manual Diff NO Immature Gran % (0.0 - 2.0 %) 0.6 Nucleated RBC % (0 - 0 %) 0.0 Nucleated RBCs # (Man) (0.0 - 0.1 x10 3/uL) 0.00 Laboratory Tests: 08/25 08/25 08/25 08/25 1723 1111 1044 1044 Chemistry Potassium (3.4 - 5.0 mEq/L) 4.5 POC Glucose (70 - 110 MG/DL) 132 H 143 H Total Creatine Kinase (46 - 171 Units/L) 17 L Urines Urine Color (YEL/STRAW) YELLOW Urine Appearance (CLEAR) TURBID H Urine pH (5.0 - 7.0) 5.0 Ur Specific [place] (1.005 - 1.030) 1.012 Urine Protein (NEGATIVE) [...] (Auto) (14.0 - 32.0 %) 8.1 L [place] % (Auto) (4.8 - 9.0 %) 4.3 L Eos % (Auto) (0.3 - 3.7 %) 0.5 Baso % (Auto) (0.0 - 2.0 %) 0.1 Neut # (Auto) (2.0 - 7.6 x10 3/uL) 15.44 H Lymph # (Auto) (1.0 - 3.8 x10 3/uL) 1.45 [place] # (Auto) (0.1 - 0.8 x10 3/uL) 0.77 Eos # (Auto) (0.0 - 0.2 x10 3/uL) 0.09 Baso # (Auto) (0.0 - 0.2 x10 3/uL) 0.02 Abs Immat Gran (auto) (0.00 - 0.03 x10 3/uL) 0.13 H Add Manual Diff NO Immature Gran % (0.0 - 2.0 %) 0.7 Nucleated RBC % (0 - 0 %) 0.0 Nucleated RBCs # (Man) (0.0 - 0.1 x10 3/uL) 0.00 Microbiology: Date/Time Procedure - Status Source Growth 08/25 1044 Urine Culture - WKST URINE 08/25 1044 Blood Culture - RECD BLOOD 08/25 1044 Blood Culture - RECD BLOOD Laboratory Tests: 08/20 08/20 08/20 08/20 08/20 1107 0756 0647 0554 0454Chemistry Sodium (134 - 147 mEq/L) 137 Potassium [...] L Albumin (3.4 - 5.0 g/dL) 2.00 LHematology WBC (4.5 - 11.0 x10 3/uL) 22.8 [...] (Auto) (14.0 - 32.0 %) 4.8 L [place] % (Auto) (4.8 - 9.0 %) 2.9 L Eos % (Auto) (0.3 - 3.7 %) 0.0 L Baso % (Auto) (0.0 - 2.0 %) 0.2 Neut # (Auto) (2.0 - 7.6 x10 3/uL) 19.90 H Lymph # (Auto) (1.0 - 3.8 x10 3/uL) 1.10 [place] # (Auto) (0.1 - 0.8 x10 3/uL) 0.66 Eos # (Auto) (0.0 - 0.2 x10 3/uL) 0.00 Baso # (Auto) (0.0 - 0.2 x10 3/uL) 0.04 Abs Immat Gran (auto) (0.00 - 0.03 1.12 Hx10 3/uL) Add Manual Diff NO Immature Gran % (0.0 - 2.0 %) 4.9 H Nucleated RBC % (0 - 0 %) 0.0 Nucleated RBCs # (Man) (0.0 - 0.1 0.00x10 3/uL) 08/20 08/20 08/19 08/19 08/19 0259 [...] (37.5 - 50.7 %) 21.8 L 08/193 2130 2014 172 1652Chemistry Sodium (134 - 147 mEq/L) 133 L [...] 2.03 Albumin (3.4 - 5.0 g/dL) 1.40 LHematology WBC (4.5 - 11.0 x10 3/uL) 20.3 [...] (Auto) (14.0 - 32.0 %) 3.8 L [place] % (Auto) (4.8 - 9.0 %) 3.7 L Eos % (Auto) (0.3 - 3.7 %) 0.0 L Baso % (Auto) (0.0 - 2.0 %) 0.3 Neut # (Auto) (2.0 - 7.6 x10 3/uL) 17.97 H Lymph # (Auto) (1.0 - 3.8 x10 3/uL) 0.76 L [place] # (Auto) (0.1 - 0.8 x10 3/uL) 0.74 Eos # (Auto) (0.0 - 0.2 x10 3/uL) 0.00 Baso # (Auto) (0.0 - 0.2 x10 3/uL) 0.07 Abs Immat Gran (auto) (0.00 - 0.03 0.71 Hx10 3/uL) Add Manual Diff NO Immature Gran % (0.0 - 2.0 %) 3.5 H Nucleated RBC % (0 - 0 %) 0.0 Nucleated RBCs # (Man) (0.0 - 0.1 0.00x10 3/uL) 08/19 08/19 1622 1601 Chemistry POC Glucose (70 - 110 MG/DL) 232 H Urines Urine Color (YEL/STRAW) YELLOW Urine Appearance (CLEAR) SL CLOUDY Urine pH (5.0 - 7.0) 5.0 Ur Specific [place] (1.005 - 1.030) 1.013 Urine Protein (NEGATIVE) [...] 08/19 08/19 08/19 08/19 0805 0737 0737 7962 Chemistry Sodium (134 - 147 mEq/L) 130 [...] (Auto) (14.0 - 32.0 %) 4.3 L [place] % (Auto) (4.8 - 9.0 %) 3.1 L Eos % (Auto) (0.3 - 3.7 %) 0.0 L Baso % (Auto) (0.0 - 2.0 %) 0.3 Neut # (Auto) (2.0 - 7.6 x10 3/uL) 19.17 H Lymph # (Auto) (1.0 - 3.8 x10 3/uL) 0.91 L [place] # (Auto) (0.1 - 0.8 x10 3/uL) 0.67 Eos # (Auto) (0.0 - 0.2 x10 3/uL) 0.01 Baso # (Auto) (0.0 - 0.2 x10 3/uL) 0.07 Abs Immat Gran (auto) (0.00 - 0.03 x10 3/uL) 0.51 H Add Manual Diff NO Immature Gran % (0.0 - 2.0 %) 2.4 H Nucleated RBC % (0 - 0 %) 0.0 Nucleated RBCs # (Man) (0.0 - 0.1 x10 3/uL) 0.00 08/18 08/18 08/18 08/18 2246 2157 1854 [...] 121 Wound Culture - RES ABSCESS 08/19 1209 Anaerobic Culture - RES ABSCESS 08/19 1209 Gram Stain - RES ABSCESS Recent Impressions:ULTRASOUND - DUP [place] UNI/LTD 08/19 0950 Report Impression - Status: SIGNED Entered: 08/19/2022 1056 IMPRESSION: No sonographic evidence for flow-limiting stenosis in the right lower extremity arterial system. Impression By: [email or web address] - Abraham Ross M.D. Laboratory Tests: 08/18 08/18 08/18 08/18 08/18 1430 1430 1404 1309 1203Chemistry Sodium (134 - 147 mEq/L) 131 L [...] 20.0 L Cholesterol/HDL Ratio (3.43 - 4.97 4.00RATIO) TSH (0.42 - 5.47) 0.96 Free T4 (0.77 - 1.61 ng/dL) 0.7 L 08/18 08/18 08/18 08/18 08/18 1107 1004 0900 0823 0549 Chemistry POC Glucose (70 - 110 MG/DL) 223 H 304 H 405 H 449 H Hemoglobin A1c (4.8 - 6.0 %A1C) 13.4 H 08/18 08/18 08/18 0549 0305 0207Blood Gas Puncture Site R Radial O2 Saturation [...] O2 Delivery Device Room Air FiO2 (%) 21Chemistry Sodium (134 - 147 mEq/L) 121 *L [...] 2.34 Albumin (3.4 - 5.0 g/dL) 1.60 LSerology Influenza Type A (PCR) (Negative) Negative Influenza Type B (PCR) (Negative) NegativeToxicology Acetone, Quant (Neg - <20 mg/dL) Large [...] Date/Time Procedure - Status Source Growth 08/18 0815 Wound Culture - ORD FOOT 08/18 206 Wound Culture - RECD FOOT 08/18 206 Group A Streptococcus Screen (VERONICA) - COMP THROAT 08/18 206 Streptococcus Culture - COMP THROAT 08/18 202 Blood Culture - RES BLOOD 08/18 020 Blood Culture Gram Stain - RES BLOOD 08/18 202 Blood Culture - RES BLOOD 08/18 020 Blood Culture Gram Stain - RES BLOOD Recent Impressions:RADIOLOGY - XR CHEST 2 V 08/18 0201 Report Impression - Status: SIGNED Entered: 08/18/2022 0317 IMPRESSION: Ill-defined somewhat nodular opacity measuring 3.2 cm laterally in the right mid lung suspicious for rounded pneumonia given provided history, but underlying neoplasm can not be excluded. Followup radiographs are recommended after appropriate treatment in order to document complete resolution and exclude an underlying process or neoplasm. Impression By: [email or web address] - Dom Adams M.D.RADIOLOGY - XR FOOT 3 + V RT 08/18 0238 Report Impression - Status: SIGNED Entered: 08/18/2022 0358 IMPRESSION: No acute osseous findings. No convincing evidence for osteomyelitis. MRI is more sensitive for detecting osteomyelitis.Impression By: Ankur Ladd M.D.CAT SCAN - CT ABD PELVIS W/CONT 08/18 0339 Report Impression - Status: SIGNED Entered: 08/18/2022 0530 IMPRESSION: 3.3 cm hypodensity in the left posterior prostate or seminal vesicle. This could represent an abscess. Contrast-enhanced MRI of the pelvis would be helpful for further evaluation.No acute intra-abdominal findings otherwise.Impression By: Ankur Ladd M.D.CAT SCAN - CT LOWER EXTRM W/O C RT 08/18 0645 Report Impression - Status: SIGNED Entered: 08/18/2022826 IMPRESSION: Extensive soft tissue edema with mottled gas in the subcutaneous and intramuscular compartments of the foot compatible with gas-forming infection. Disease extends into the visualized distal leg. Impression By: Jamel Dorantes M.D. 1. 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 DKA3. Cellulitis and gangrene of the right foot.4. Sepsis5. Altered mental status6. High LFTsBlood sugar 90-105 mg/dL.HbA1c 13.4%White count 17.9Sodium 121.Adjust insulin dose.Wound care and IV antibiotics.For wound debridement. at 1722 RPT #:[id number] OF REPORTPRProgress [id number]:21:00G.[id number] able for patient [id number]:22:24 [facility] 2022-08-29 14:11:00 [id number] qFj[id number]:11:00 [facility] ([facility])Infectious Dis. Progress NoteREPORT#:[id number] REPORT STATUS: SignedDATE:08/29/22 TIME: 1411 PATIENT: KARMA ROWLAND UNIT #: [id number]#: [id number] [address] AGE: 56 SEX: M ATTEND: Wilbert Ramires [facility] AUTHOR: Merry Wolff MD * ALL edits or amendments must be made on the electronic/computer document * SubjectiveChief complaint:Follow-up on MRSA bacteremia, right lower extremity necrotizing soft tissue infection.HPI:PT is a 56yr old male with history of diabetes mellitus type 2, hypertension whowas admitted with altered mental status and right-sided foot infection. According to him, he noticed a blister on his right foot around 3 days prior to presentation. His foot got progressively more swollen and erythema extended proximally to his lateral foot and ankle. CT abdomen and pelvis with contrast is concerning for possible prostate abscess. CT of lower extremity without contrast shows extensive soft tissue edema with mottled gas in the subcutaneous and intramuscular compartments of the foot, compatible with gas-forming infection. Patient's blood cultures have come back positive for MRSA in 2 out of 2 sets. PT has had persistent (+)Ve cx for MRSA 08/18- 08/22. He underwent a debridement of his foot on 08/19 and cx grew MRSA. PT was started on Vancomycin and clindamycin on 08/18. His MRI showed a prostate abscess. 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 08/25 PT is afebrile, his WBX is 17.9, he is awake and alert. at the bedside 08/26 plan for transrectal aspiration today and BKA on 08/28, pt is afebrile, WBC is17.7, blood cx sent on 08/25 still positive, urine cx sent on 08/25 contaminated 08/27 s/p transrectal aspiration and unroofing of prostate abscess 08/26, aspirationcx growing GNR, pt is afebrile, WBC down to 15.9 from 17.7, 08/28 Pt had right BKA today, afebrile, WBC 13.8 from 15.9 08/29 pt doing well, awake, alert, afebrile, family at bedside, states he only hasa little bit of painPatient reports:Yes: pain controlled. No: cough, diarrhea, fever, headache, nausea, shortness of breath. Portions of this section were scribed by Jill Quintero on 08/29/22 at 1414 Objective GeneralVS/I O:Vital Signs Date Temp Pulse Resp B/P B/P Mean Pulse Ox FiO2 08/28-08/29 98.2-99.5 78-95 10-23 87-166/54-81 67-115 95-100 Last Documented: Result Date Time Pulse Ox 97 08/29 1401 B/P 121/57 08/29 1401 B/P Mean 82 04/07 1401 Pulse 88 04/07 1401 Resp 15 04/07 1401 Temp 98.2 04/07 1200 O2 Delivery Room air 04/06 1235 O2 Flow Rate 7 04/06 1222 Vital Signs: Date Time Temp Pulse Resp B/P B/P Pulse O2 O2 Flow FiO2 Mean Ox Delivery Rate 04/ 1401 88 15 121/57 82 97 04/07 [...] 98 04/06 1430 83 135/69 97 98 24 hour I O ending at 0700: 04/07 0700 04/06 1900 Intake Total 6310.00 560.00 Output Total 4650 2700 Balance 1660.00 -2140.00 Intake, IV 60.00 80.00 Intake, Oral 250 480 Intake, Other 6000 Intake, Tube Irrigant Output, Urine 4650 2700 Patient 69.9 kg Weight Weight Bed scale Measurement Method PATIENT WEIGHT: Weight (lb): 154Weight (oz): 1.65Weight (kg): 69.900 Antibiotic start date:Antibiotic: clindamycin Start Date: 08/18-08/25 Antibiotic: Vancomycin Start Date: 08/18-08/25 Antibiotic: daptomycin Start Date:08/25 Antibiotic: Merrem Start Date:08/27 Antibiotic: TeflaroStart Date:08/25-08/27 Physical ExamGeneral appearance: alert, awake, orientedWound/incision: Location:right BKAHead/Eyes: atraumatic, normocephalicNeck: supple/no meningismus, no JVDCardiovascular: normal heart sounds, regular rate rhythm, no murmurRespiratory: clear to auscultation, aerating well, symmetric expansionAbdomen: non-tender, soft, no distentionGenitourinary: urinary catheter ( on CBI)Extremities: edema, right BKANeuro/DIRECTOR OPERATING ROOM: alert, 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 Considered stroke alert: noSkin: lesions, no rashPsychiatry: normal affect, normal mood ResultsFindings/Data:Laboratory Tests 08/29 08/29 08/29 08/29 08/29 1041 [...] (Auto) (14.0 - 32.0 %) 10.0 L Lenoir % (Auto) (4.8 - 9.0 %) 5.6 Eos % (Auto) (0.3 - 3.7 %) 0.5 Baso % (Auto) (0.0 - 2.0 %) 0.1 Neut # (Auto) (2.0 - 7.6 x10 3/uL) 11.78 H Lymph # (Auto) (1.0 - 3.8 x10 3/uL) 1.42 Lenoir # (Auto) (0.1 - 0.8 x10 3/uL) 0.79 Eos # (Auto) (0.0 - 0.2 x10 3/uL) 0.07 Baso # (Auto) (0.0 - 0.2 x10 3/uL) 0.02 Abs Immat Gran (auto) (0.00 - 0.03 x10 3/uL) 0.08 H Add Manual Diff NO Immature Gran % (0.0 - 2.0 %) 0.6 Nucleated RBC % (0 - 0 %) 0.0 Nucleated RBCs # (Man) (0.0 - 0.1 x10 3/uL) 0.00 Laboratory Tests: 08/29 08/29 08/29 08/29 1041 0912 0844 0513 Chemistry POC Glucose (70 - 110 MG/DL) 105 70 70 Prealbumin (16.0 - 40.0 mg/dL) < 5.0 L 08/29 1709 1302 1218Chemistry Sodium (134 - 147 mEq/L) 136 Potassium [...] 110 MG/DL) 145 H 103 206 H 185 H Calcium (8.0 - 10.5 mg/dL) 7.2 L Phosphorus (2.5 - 4.9 MG/DL) 5.2 H Magnesium (1.80 - 2.40 mg/dL) 1.91Hematology WBC (4.5 - 11.0 x10 3/uL) 14.2 [...] (Auto) (14.0 - 32.0 %) 10.0 L Lenoir % (Auto) (4.8 - 9.0 %) 5.6 Eos % (Auto) (0.3 - 3.7 %) 0.5 Baso % (Auto) (0.0 - 2.0 %) 0.1 Neut # (Auto) (2.0 - 7.6 x10 3/uL) 11.78 H Lymph # (Auto) (1.0 - 3.8 x10 3/uL) 1.42 Lenoir # (Auto) (0.1 - 0.8 x10 3/uL) 0.79 Eos # (Auto) (0.0 - 0.2 x10 3/uL) 0.07 Baso # (Auto) (0.0 - 0.2 x10 3/uL) 0.02 Abs Immat Gran (auto) (0.00 - 0.03 0.08 Hx10 3/uL) Add Manual Diff NO Immature Gran % (0.0 - 2.0 %) 0.6 Nucleated RBC % (0 - 0 %) 0.0 Nucleated RBCs # (Man) (0.0 - 0.1 0.00x10 3/uL) 08/28 08/28 08/27 08/27 08/27 0624 0420 2050 1825 1728Chemistry Sodium (134 - 147 mEq/L) 137 136 [...] L Ionized Calcium Mitzi (1.09 - 1.30 1.12MMOL/L) Phosphorus (2.5 - 4.9 MG/DL) 4.8 Magnesium (1.80 - 2.40 mg/dL) 1.89 Total Bilirubin (0.0 - 1.0 mg/dL) 0.40 AST (15 - 37 IUnit/L) 17 ALT (30 - 65 IUnit/L) 9 L Total Alk Phosphatase (20 - 125 IUnit/L) 111 Total Protein (6.4 - 8.2 g/dL) 5.8 L Albumin (3.4 - 5.0 g/dL) 1.30 LHematology WBC (4.5 - 11.0 x10 3/uL) 13.8 [...] (Auto) (14.0 - 32.0 %) 8.2 L Lenoir % (Auto) (4.8 - 9.0 %) 4.1 L Eos % (Auto) (0.3 - 3.7 %) 0.4 Baso % (Auto) (0.0 - 2.0 %) 0.1 Neut # (Auto) (2.0 - 7.6 x10 3/uL) 11.92 H Lymph # (Auto) (1.0 - 3.8 x10 3/uL) 1.13 Lenoir # (Auto) (0.1 - 0.8 x10 3/uL) 0.57 Eos # (Auto) (0.0 - 0.2 x10 3/uL) 0.05 Baso # (Auto) (0.0 - 0.2 x10 3/uL) 0.01 Abs Immat Gran (auto) (0.00 - 0.03 0.07 Hx10 3/uL) Add Manual Diff NO Immature Gran % (0.0 - 2.0 %) 0.5 Nucleated RBC % (0 - 0 %) 0.0 Nucleated RBCs # (Man) (0.0 - 0.1 0.00x10 3/uL) Microbiology: Date/Time Procedure - Status Source Growth 08/28 1348 Blood Culture - RES BLOOD 08/28 1348 Blood Culture - RES BLOOD Recent Impressions:ULTRASOUND - DUP VEIN UNI/LTD 08/28 0857 Report Impression - Status: SIGNED Entered: 08/28/2022 09 IMPRESSION: 1. No evidence of venous thrombosis involving left lower extremity. 2. Approximately 8 x 2 x 1.3 cm complex fluid collection along the left upper calf probably representing a small hematoma. Impression By: [email or web address] - Roger Parra M.D.RADIOLOGY - XR FLUOROSCOPY 0-60 MIN 08/28 1101 Report Impression - Status: SIGNED Entered: 08/28/2022 1120 IMPRESSION: Fluoroscopy dosage documentation. See also separate procedure notes. Impression By: [email or web address] - Bishop Atkins M.D. Medication(s) Ordered:Anti-Infective Agents Sig/Jan Start time Last Medication Dose [...] Sodium 5,000 UNIT Q8HR 08/18 0600 AC 08/29 SUBQ 09/17 0559 1344 Cardiovascular Drugs Sig/Jan Start time Last Medication Dose Route Stop Time Status Admin Lidocaine HCl 2 ML PREOP ONCALL 08/27 1929 DC LOCAL 09/26 235 Lidocaine HCl 2 ML PREOP ONCALL 08/27 1929 DC LOCAL 09/26 2359 Central Nervous System Agents Sig/Jan Start time Last Medication Dose Route Stop Time Status Admin Hydromorphone HCl 1 MG Q3H PRN PRN 08/28 1814 AC 08/29 IV 09/02 1814 1357 Hydromorphone HCl 0.5 MG Q3H PRN PRN 08/28 181 AC IV 09/02 1814 Acetaminophen 1,000 MG PREOP ONCALL 08/27 1929 DC PO 09/26 235 Gabapentin 200 MG PREOP ONCALL 08/27 1929 DC PO 09/26 2359 Lorazepam 1 MG ONCE PRN 08/21 0900 AC 08/21 IV 09/20 0859 1143 Acetaminophen 650 MG Q6H PRN PRN 08/18 0945 AC 08/28 PO 09/17 0944 1548 Electrolytic, Caloric, And Daniel Sig/Jan Start time Last Medication Dose Route Stop Time Status Admin Lactated Ringer's 1,000 ML PREOP ONCALL 08/27 193 DC IV 09/26 235 Sodium Chloride 500 ML PREOP ONCALL 08/27 193 DC IV 09/26 235 Sodium Chloride 500 ML PREOP ONCALL 08/27 193 DC IV 09/26 2359 Sodium Chloride 1,000 ML PREOP ONCALL 08/27 193 DC IV 09/26 235 Sodium Chloride 5 ML ASDIR PRN 08/27 193 DC IV 09/26 192 Sodium Chloride 10 ML ASDIR PRN 08/27 193 DC IV 09/26 192 Sodium Chloride 250 ML ASDIR PRN 08/27 193 DC IV 09/26 1929 Sodium Chloride 0 ASDIR [...] Status Admin Famotidine 20 MG BID 08/21 2099 AC 08/29 PO 09/20 2058 0846 Bisacodyl 10 MG [...] Admin Insulin Glargine 20 UNIT BEDTIME 08/28 2099 AC 08/28 SUBQ 09/27 Insulin Glargine 15 UNIT BEDTIME 08/27 2099 DC 08/27 SUBQ 09/26 2058 214 Insulin Human Lispro 7 UNIT AC 08/20 1630 AC 08/28 SUBQ 04/28 1629 1319 Insulin Human Lispro 0 AC HS 08/20 1630 AC 08/28 SUBQ 09/19 1629 1319 Glucagon 1 MG ASDIR PRN 08/20 1530 AC IM 09/19 1529 Local Anesthetics (Parenteral) Sig/Jan Start time Last Medication Dose Route Stop Time Status Admin Lidocaine 1 PATCH DAILY 08/29 1230 AC 08/29 TOPICAL 09/28 1229 1343 Microbiology:08/28 1348 BLOOD: Blood Culture - RES08/28 134 BLOOD: Blood Culture - RES08/26 221 ABSCESS: Wound Culture - COMP CITROBACTER FARMERI ENTEROCOCCUS RAFFINOSUS STAPH AUREUS,METHICILLIN RESIS08/26 2216 ABSCESS: Anaerobic Culture - COMP08/26 2216 ABSCESS: Gram Stain - COMP Recent Impressions:ULTRASOUND - DUP VEIN UNI/LTD 08/28 0857 Report Impression - Status: SIGNED Entered: 08/28/2022 0927 IMPRESSION: 1. No evidence of venous thrombosis involving left lower extremity. 2. Approximately 8 x 2 x 1.3 cm complex fluid collection along the left upper calf probably representing a small hematoma. Impression By: [id number] - Roger Parra M.D.RADIOLOGY - XR FLUOROSCOPY 0-60 MIN 08/28 1101 Report Impression - Status: SIGNED Entered: 08/28/2022 1120 IMPRESSION: Fluoroscopy dosage documentation. See also separate procedure notes. Impression By: [email or web address] - Bishop Atkins M.D. Portions of this section were scribed by Jill Quintero on 08/29/22 at 1414 Treatment Prophylaxis Treatment ProphylaxisLines: peripheralCVC/PICC documentation:The data below has been imported from nursing documentation. Any exceptions have been noted below under Provider comments. CVC/PICC insertion date/time: Provider comments on imported nursing data: [] Portions of this section were scribed by Jill Quintero on 08/29/22 at 1414 Diagnosis, Assessment PlanFree Text A P:Assessment: *MRSA bacteremia-Initial blood cultures from 08/18/2022 positive for MRSA in 2 out of 2 sets.-Repeat blood cultures 08/21/2022 are already positive for MRSA in 2 out of 2 sets, suggesting persistent high-grade bacteremia.-TTE 08/18/2022 negative for any obvious vegetations.*Severe sepsis due to above*Right lower extremity necrotizing fasciitis-MRI of foot (+)Ve for osteomyelitis-s/p debridement on 08/19: cx grew MRSA*DKA*Prostatic abscess*ERIKA*Hyponatremia*Diabetic neuropathy*Diabetes mellitus type 2*Hypertension Plan:08/25-Discussed the possibility of amputation with patient and family at bedside -Recommend JIMENA. -Repeat blood cultures x2 again today.-Continue to repeat serial blood cultures till bacteremia clears. -D/C clindamycin and vancomycin. -start on DAptomycin and Teflaro-check urine cx Discussed with Dr. Du about MRI report 08/26-plan for transrectal aspiration of abscess today-repeat blood cx are still (+)Ve; will repeat blood cx tomorrow-cont on daptomycin and Teflaro day #2-Pt needs a JIMENA r/o endocarditis as pt has high grade persistent bacteremia-plan for Right BKA on 08/28 4/-s/p transrectal aspiration and unroofing of abscess; cx GNR; will follow- repeat blood cx today--cont on daptomycin and Teflaro day #3-Pt needs a JIMENA r/o endocarditis as pt has high grade persistent bacteremia-plan for Right BKA on 08/28 08/28s/p right BKA-repeat blood cx sent today-cont on Daptomycin day #4 -NEeds a JIMENA r/o endocarditis-prostate abscess: Coag (+)Ve staph, citrobacter and Enterococcus; on Merrem day#2 4/7follow repeat blood cx from 08/28; pt need atleast 14 days from neg bloodcx needs a JIMENA r/o endocarditis; if (+)Ve need 6 weeks , if not able to do willneed4 weeks-prostate abscess cx MRSA,citrobacter, Enterococcus; cont on Merrem and Daptomycin until cx are final day#3 out of 2-3 weeks Portions of this section were scribed by Jill Quintero on 08/29/22 at 1414 at 1740 RPT #:[id number] OF REPORTPRProgress [id number]:11:00G.[id number] able for patient [id number]:42:29 [facility] 2022-08-29 09:48:00 [id number]/7 C7OxCN8gSXch6Yypkl5ye3kLlSU1347-78-38P98:48:00 [facility] ([facility])Adult General ConsultationREPORT#:[id number] REPORT STATUS: SignedDATE:08/29/22 TIME: 0948 PATIENT: KARMA ROWLAND UNIT #: [id number]#: [id number] [address] AGE: 56 SEX: M ATTEND: Wilbert Ramires MDADM AUTHOR: Mj Vences MD * ALL edits or amendments must be made on the electronic/computer document * History of Present IllnessRequesting Clinician: Dr Asencio for consult:Physical medicine and rehabilitation consultationChief complaint:Pain and generalized weaknessHPI:56 yo HAM with long h/o DM, and HTN who was admitted for fever, flulike symptomsand altered mental status on 08/18. He was doing well until about 3 days prior toadmission when he noted blister to have formed on the dorsum of his foot. His foot started progressively getting more swollen and the blisters started enlarging and extending to his lateral foot and ankle. He started feeling weak and nauseated. He was noted to have altered mentation and was brought to our ER.He was noted to be in DKA with Blood sugars greater than 600. He was seen by podiatry and surgery for BLE wounds and infection. He was treated in ICU for sepsis and DKA. He underwent incisional and excisional debridement of right footand right ankle by podiatry. Patient also found to have prostate abscess underwent transrectal ultrasound aspiration of abscess and transurethral resection of prostate and unroofing of abscess by urology Dr. Du. Endocrinology treated the DKA and blood sugars much improved. Patient's right foot was not salvageable and patient underwent right BKA by Dr. LEROY on 08/28. Patient blood cultures showed MRSA. Patient continued on antibiotics as per ID. MRI of the pelvis and foot completed. Patient required multiple PRBCs for anemia. Patient was found to have a possible small hematoma of the left calf onultrasound. He complains of pain and swelling of the left ankle. Patient hemodynamically stable and plans are to be transferred to stepdown unit. He is on heparin subcu for VTE. After surgery he is now being mobilized by PT and OT.He is wearing a maxine-tech orthotic for right knee/BKA protection. Hemovac drain still in place. Prior to admission the patient was independent living in a single-story house with his spouse with a few steps up to front and back door. 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 is at bedside. Patient denies nausea, vomiting, fever, chills, chest pain, shortness of breath with dizziness. He is requiring IV Dilaudid for pain control. Mental status back to baseline. I was asked to evaluate the patient by physical medicine and rehabilitation standpoint. History - Adult longitudinalAdditional medical history:DM 2 since age 33 DM neuropathy HTN hyperlipidemiaAdditional surgical history:as aboveAdditional family history:reviewed and non contributoryAlcohol use: Denies EtOH useDrug use: Denies recreational drugsSmoking status for patients 13 years old or older: Former SmokerOther social history: Local resident, Good social supportMedications:Current Hospital Medications:Anti-Infective Agents Sig/Jan Start time Last Medication Dose Route Stop Time Status Admin Cefazolin Sodium 1 GM Q8H 08/28 1215 AC 08/29 (KEFZOL OR ANCEF) IV 08/30 1315 0427 Sodium Chloride 10 ML (SODIUM [...] Sodium 5,000 UNIT Q8HR 08/18 0600 AC 08/29 (HEPARIN 5000 UNITS/ SUBQ 09/17 0559 0557 ML) Cardiovascular Drugs Sig/Jan Start time Last Medication Dose Route Stop Time Status Admin Hydralazine HCl 5 MG PACU Q10MIN PRN PRN 08/28 1045 DC (APRESOLINE) IV 08/29 2035 Labetalol HCl 5 MG PACU Q10MIN PRN PRN 08/28 1045 DC (LABETALOL HCL) IV 08/29 2035 Lidocaine HCl 0 .STK-MED ONE 08/28 1027 DC (LIDOCAINE HCL/PF) .ROUTE Lidocaine HCl 2 ML PREOP ONCALL 08/27 193 DC (LIDOCAINE HCL/PF) LOCAL 09/26 2358 Lidocaine HCl 2 ML PREOP ONCALL 08/27 193 DC (LIDOCAINE HCL/PF) LOCAL 09/26 235 Central Nervous System Agents Sig/Jan Start time Last Medication Dose Route Stop Time Status Admin Hydromorphone HCl 1 MG Q3H PRN PRN 08/28 1815 AC 08/29 (DILAUDID) IV 09/02 181 0434 Hydromorphone HCl 0.5 MG Q3H PRN PRN 08/28 1815 AC (DILAUDID) IV 09/02 1814 Fentanyl Citrate 0 .STK-MED ONE 08/28 1155 DC (SUBLIMAZE) .ROUTE Fentanyl Citrate 100 MCG PACU Q10MIN PRN PRN 08/28 1045 DC (SUBLIMAZE) IV 08/29 2035 Fentanyl Citrate 50 MCG PACU Q10MIN PRN PRN 08/28 1045 DC (SUBLIMAZE) IV 08/29 2035 Hydrocodone Bitart/ 1 TAB PACU ONCE 08/28 1045 DC Acetaminophen PO 08/29 2035 (NORCO 5/325) Hydromorphone HCl 1 MG PACU Q10MIN PRN PRN 08/28 1045 DC (DILAUDID) IV 08/29 2035 Hydromorphone HCl 0.5 MG PACU Q5MIN PRN PRN 08/28 1045 DC (DILAUDID) IV 08/29 2035 Meperidine HCl 12.5 MG PACU ONCE PRN 08/28 1045 DC (MEPERIDINE HCL/PF) IV 08/29 2035 Morphine Sulfate 2 MG PACU Q10MIN PRN PRN 08/28 1045 DC (morphine SULFATE) IV 08/29 2035 Tramadol HCl 50 MG PACU ONCE 08/28 1045 DC (ULTRAM) PO 08/29 2035 Acetaminophen 1,000 MG PREOP ONCALL 08/27 1929 DC (TYLENOL EXTRA PO 09/26 2358 STRENGTH) Gabapentin 200 MG PREOP ONCALL 08/27 1929 DC (NEURONTIN) PO 09/26 2358 Lorazepam 1 MG ONCE PRN 08/21 0900 AC 08/21 (ATIVAN) IV 09/20 0859 1143 Acetaminophen 650 MG Q6H PRN PRN 08/18 0945 AC 08/28 (TYLENOL) PO 09/17 0944 1548 Electrolytic, Caloric, And Daniel Sig/Jan Start time Last Medication Dose Route Stop Time Status Admin Lactated Ringer's 1,000 ML PREOP ONCALL 08/27 1929 DC (LACTATED RINGERS) IV 09/26 2358 Sodium Chloride 500 ML PREOP ONCALL 08/27 1929 DC (SODIUM CHLORIDE IV 09/26 2358 0.9%) Sodium Chloride 500 ML PREOP ONCALL 08/27 1929 DC (SODIUM CHLORIDE IV 09/26 2358 0.9%) Sodium Chloride 1,000 ML PREOP ONCALL 08/27 1929 DC (SODIUM CHLORIDE IV 09/26 2358 0.9%) Sodium Chloride 5 ML ASDIR PRN 08/27 1929 DC (SODIUM CHLORIDE) IV 09/26 1928 Sodium Chloride 10 ML ASDIR PRN 08/27 1930 DC (SODIUM CHLORIDE) IV 09/26 192 Sodium Chloride 250 ML ASDIR PRN 08/27 1930 DC (SODIUM CHLORIDE IV 09/26 1928 0.9%) [...] 4 MG PACU ONCE PRN 08/28 1045 DC (ZOFRAN) IV 08/28 203 Ondansetron HCl 0 .STK-MED ONE 08/28 1014 DC (ZOFRAN) .ROUTE Famotidine 20 MG BID 08/21 2100 AC 08/29 (PEPCID) PO 09/20 2058 0846 Bisacodyl 10 MG DAILY PRN PRN 08/18 0945 AC (DULCOLAX) RECTAL 09/17 0944 Docusate Sodium 100 MG Q12H PRN PRN 08/18 0945 AC 08/22 (COLACE) PO 09/17 0944 2109 Ondansetron HCl 4 [...] 2100 DC 08/27 (Lantus/Semglee) SUBQ 09/26 2058 2141 Insulin Human Lispro 7 UNIT AC 08/20 1630 AC 08/28 (HUMALOG) SUBQ 09/19 1629 1319 Insulin Human Lispro 0 AC HS 08/20 1630 AC 08/28 (HUMALOG) SUBQ 09/19 1629 1319 Glucagon 1 MG ASDIR PRN 08/20 1530 AC (GLUCAGON) IM 09/19 1529 Local Anesthetics (Parenteral) Sig/Jan Start time Last Medication Dose Route Stop Time Status Admin Ropivacaine 150 MG ASDIR PRN 08/28 1045 DC (NAROPIN 0.5% 150 MG/ LOCAL 08/28 2036 30mL) Allergies:Coded Allergies:No Known Allergies (03/23/11) Ambulatory status: Independent Review of Systems Free Text ROS NotesFree Text ROS Notes:14 point review of systems obtained. All systems reviewed are either negative or noncontributory or in the body of the consultation ObjectiveVS/I O:Last Documented: Result Date Time Pulse Ox 100 08/29 900 B/P 159/61 08/29 900 B/P Mean 93 08/29 900 Pulse 87 08/29 900 Resp 21 08/29 09 Temp 98.2 08/29 [...] scale Measurement Method PATIENT WEIGHT: Weight (lb): 154Weight (oz): 1.65Weight (kg): 69.900 General appearance: alert, awake, oriented, no acute distressHead/Eyes: atraumatic, clear cornea, EOMI, normocephalic, PERRLAENT: normal sinus, moist mucosal membranesNeck: non-tender, no JVD, supple/no meningismusCardiovascular: pedal pulses present (L foot), regular rate rhythm, normal heart sounds, BP/pulses equal bilat., BUE distal pulse good, LLE distal pulses 1+/4Respiratory: aerating well, symmetric expansion, clear to auscultation, no distressAbdomen: soft, non-tender, no guarding, no rebound, no distentionGenitourinary: CAMARENA/CBI-clearExtremities: moves all, no calf tenderness, no clubbing, no cyanosis, R BKA W DSG, L ankle mild edema, sl tender, OA changes.Musculoskeletal: normal inspection, no muscle spasm, MMT BUE 5/5, LLE 4/5, R hip3-/5, R knee in maxine-tech orthoticNeuro/DIRECTOR OPERATING ROOM: gait not tested, alert, oriented X 3, CNII-XII grossly intactSkin: dry, normal color, no rash, R BKA w dsg/joan, hemovac drainLymphatics: neck normal, no lymphadenopathyPsychiatry: normal affect, normal judgment/insight, normal mood ResultsFindings/Data:Laboratory Tests: 08/29 08/29 08/29 08/28 0912 0844 0588 2015 Chemistry Sodium (134 - 147 mEq/L) [...] (Auto) (14.0 - 32.0 %) 10.0 L [place] % (Auto) (4.8 - 9.0 %) 5.6 Eos % (Auto) (0.3 - 3.7 %) 0.5 Baso % (Auto) (0.0 - 2.0 %) 0.1 Neut # (Auto) (2.0 - 7.6 x10 3/uL) 11.78 H Lymph # (Auto) (1.0 - 3.8 x10 3/uL) 1.42 [place] # (Auto) (0.1 - 0.8 x10 3/uL) 0.79 Eos # (Auto) (0.0 - 0.2 x10 3/uL) 0.07 Baso # (Auto) (0.0 - 0.2 x10 3/uL) 0.02 Abs Immat Gran (auto) (0.00 - 0.03 x10 3/uL) 0.08 H Add Manual Diff NO Immature Gran % (0.0 - 2.0 %) 0.6 Nucleated RBC % (0 - 0 %) 0.0 Nucleated RBCs # (Man) (0.0 - 0.1 x10 3/uL) 0.00 08/28 08/28 08/28 1709 1302 1218 Chemistry POC Glucose (70 - 110 MG/DL) 103 206 H 185 H Microbiology: Date/Time Procedure - Status Source Growth 08/28 1348 Blood Culture - RECD BLOOD 08/28 1348 Blood Culture - RECD BLOOD Recent Impressions:RADIOLOGY - XR FLUOROSCOPY 0-60 MIN 08/28 1101 Report Impression - Status: SIGNED Entered: 08/28/2022 1120 IMPRESSION: Fluoroscopy dosage documentation. See also separate procedure notes. Impression By: [email or web address] - Bishop Atknis M.D. Recent Impressions:ULTRASOUND - DUP VEIN UNI/LTD 08/28 0857 Report Impression - Status: SIGNED Entered: 08/28/2022 0927 IMPRESSION: 1. No evidence of venous thrombosis involving left lower extremity. 2. Approximately 8 x 2 x 1.3 cm complex fluid collection along the left upper calf probably representing a small hematoma. Impression By: [email or web address] - Roger Parra M.D.RADIOLOGY - XR FLUOROSCOPY 0-60 MIN 08/28 1101 Report Impression - Status: SIGNED Entered: 08/28/2022 1120 IMPRESSION: Fluoroscopy dosage documentation. See also separate procedure notes. Impression By: [email or web address] - Bishop Atkins M.D. Diagnosis, Assessment PlanOrders: Procedure Date/time Status Case Management Consult 08/29 1156 Active 5 EAST PRE CERT EVALUATION 08/29 1156 Active Weight Bearing Status 08/29 1019 Active PREALBUMIN 08/29 1019 Complete PHYSICAL THERAPIST CONSULT 08/29 1019 Active Occupational Therapist Consult 08/29 1019 Active Dietitian Consult 08/29 1019 Active Free Text DxA P NotesFree Text DxA P Notes:Assessment:Severe Gas gangrene right foot and right ankle associated with osteomyelitis andnecrotizing fasciitisS/p surgical debridement and washoutS/p right BKADKA, DM 2, poorly controlledDiabetic polyneuropathyMinimal PADMRSA bacteremia/sepsisAKISevere hyponatremia-resolvedHTNAcute on chronic anemiaLeft calf hematomaEdema and clinical arthritis left ankleProstatic abscess s/p transrectal ultrasound aspiration of abscess and transurethral resection of prostate and unroofing of abscess Echo: EF 55-59%, grade 1 diastolic dysfunctionHypoalbuminemiaSignificant impairment in self-care, ADLs and functional mobility Plan:-Continue PT and OT-Case management for safe discharge planning.-Decubitus prevention-Nutrition, monitor the patient's p.o. intake, albumin 1.3, check prealbumin, dietary consultation, protein supplements promote healing-Strict fall and safety precaution-DVT prophylaxis-subcutaneous heparin-GI prophylaxis on Pepcid-Early mobilization-OOB to chair-Work on bed mobility, transfer training, ADLs, pre-gait and gait exercises as tolerable. -Increase endurance and strength-Pain management-patient requiring IV Dilaudid-Glycemic control as per endo-blood sugars much improved-Monitor labs-WBC trending down, hemoglobin 7.1, sodium normal, creatinine 1.5-Has received multiple units of PRBCs-check CBC in a.m.-ID requesting JIMENA to rule out endocarditis, continue ABX-Patient on CBI and urine is clear- following-Edema and clinical arthritis left ankle-Lidoderm patch and Joan wrap-NWB right BKA, continue Maxine-tech orthotic, I will examine incision on Thursday-Right BKA amputee rehab-Excellent candidate for inpatient rehab, admit preauthorization if okay with rehabilitation admissions. Referral to [facility]. rehab ordered. Patient and would [facility]We will continue to monitor patients progress and make further recommendations Thank you Dr. Ramires for this kind referral. TT 68 min>50% with discussing with patient and about recommendations for IRF, rehab plan of care, goals, expectations, needs, and medical issues, examination. MAR and EMR reviewed. All Questions answered. at 1224 RPT #:[id number] OF [id number]:48:00G.PDOC2 [id number] for patient bctpNSUDLDYQZSWKME1935-40-60I37:25:14 [facility] 2022-08-29 06:54:00 [id number] GTOfyDYlO2VOXWz76KKrimh12SoxC KBD59ILXa6+Yaka4c6C1y2pccZv5824-66-72R06:54:00 [facility] HospitalHospitalist Progress NoteREPORT#:[id number] REPORT STATUS: SignedDATE:08/29/22 TIME: 06 PATIENT: KARMA ROWLAND UNIT #: [id number]#: [id number] [id number] AGE: 56 SEX: M ATTEND: Wilbert Ramires MDADM AUTHOR: Wilbert Ramires MD * ALL edits or amendments must be made on the electronic/computer document * SubjectiveChief complaint:AMS and right foot infection. s/p extensivedebridement. s/p BKA. pain controlled Review of SystemsAll systems rev neg: except as noted Objective GeneralVS/I O:Vital Signs: Date Time Temp Pulse Resp B/P B/P Pulse O2 O2 Flow FiO2 Mean Ox Delivery Rate 04/07 0600 [...] 2030 91 14 115/57 81 97 04/06 2000 99.5 04/06 2000 90 10 98/54 73 96 04/06 1930 [...] 04/06 0745 85 15 130/63 90 95 08/28 729 87 16 102/55 72 97 08/28 0615 87 14 119/60 84 95 08/28 699 87 10 120/62 85 94 24 hour I O ending at 0700: 08/29 0708/28 1900 Intake Total 6310.00 560.00 Output Total 4650 2700 Balance 1660.00 -2140.00 Intake, IV 60.00 80.00 Intake, Oral 250 480 Intake, Other 6000 Intake, Tube Irrigant Output, Urine 4650 2700 Patient 69.9 kg Weight Weight Bed scale Measurement Method PATIENT WEIGHT: Weight (lb): 154Weight (oz): 1.65Weight (kg): 69.900 Medications:Active Meds + DC'd Last 24 HrsInsulin Glargine (Lantus/Semglee) 20 UNIT BEDTIME SUBQ Hydromorphone HCl (DILAUDID) 1 MG Q3H PRN PRN IV Hydromorphone HCl (DILAUDID) 0.5 MG Q3H PRN PRN IV Cefazolin Sodium (KEFZOL OR ANCEF) 1 GM Q8H IV Sodium Chloride (SODIUM CHLORIDE) 10 MLFentanyl Citrate (SUBLIMAZE) 0 .STK-MED ONE .ROUTE (DC) Norepinephrine Bitartrate (LEVOPHED BITARTATE) 0 .STK-MED ONE IV (DC) Phenylephrine HCl (YENNY-SYNEPHRINE 10MG/ML AMP) 0 .STK-MED ONE .ROUTE (DC) Diphenhydramine HCl (BENADRYL) 12.5 MG PACU ONCE PRN IV (DC) Fentanyl Citrate (SUBLIMAZE) 100 MCG PACU Q10MIN PRN PRN IV (DC) Fentanyl Citrate (SUBLIMAZE) 50 MCG PACU Q10MIN PRN PRN IV (DC) Hydralazine HCl (APRESOLINE) 5 MG PACU Q10MIN PRN PRN IV (DC) Hydrocodone Bitart/Acetaminophen (NORCO 5/325) 1 TAB PACU ONCE PO (DC) Hydromorphone HCl (DILAUDID) 1 MG PACU Q10MIN PRN PRN IV (DC) Hydromorphone HCl (DILAUDID) 0.5 MG PACU Q5MIN PRN PRN IV (DC) Insulin Human Lispro (HUMALOG) 0 PACU ONCE PRN SUBQ (DC) Labetalol HCl (LABETALOL HCL) 5 MG PACU Q10MIN PRN PRN IV (DC) Meperidine HCl (MEPERIDINE HCL/PF) 12.5 MG PACU ONCE PRN IV (DC) Morphine Sulfate (morphine SULFATE) 2 MG PACU Q10MIN PRN PRN IV (DC) Ondansetron HCl (ZOFRAN) 4 MG PACU ONCE PRN IV (DC) Promethazine HCl (PHENERGAN) 25 MG PACU ONCE PRN PO (DC) Ropivacaine (NAROPIN 0.5% 150 MG/30mL) 150 MG ASDIR PRN LOCAL (DC) Tramadol HCl (ULTRAM) 50 MG PACU ONCE PO (DC) Lidocaine HCl (LIDOCAINE HCL/PF) 0 .STK-MED ONE .ROUTE (DC) Ondansetron HCl (ZOFRAN) 0 .STK-MED ONE .ROUTE (DC) Phenylephrine HCl (YENNY-SYNEPHRINE 10MG/ML AMP) 0 .STK-MED ONE .ROUTE (DC) Fentanyl Citrate (SUBLIMAZE) 0 .STK-MED ONE .ROUTE (DC) Lidocaine HCl (XYLOCAINE) 0 .STK-MED ONE .ROUTE (DC) Midazolam HCl (VERSED) 0 .STK-MED ONE .ROUTE (DC) Propofol (DIPRIVAN 200MG/20ML INJECTION) 20 ML .STK-MED ONE IV (DC) Insulin Glargine (Lantus/Semglee) 15 UNIT BEDTIME SUBQ (DC) Acetaminophen (TYLENOL EXTRA STRENGTH) 1,000 MG PREOP ONCALL PO (DC) Gabapentin (NEURONTIN) 200 MG PREOP ONCALL PO (DC) Lactated Ringer's (LACTATED RINGERS) 1,000 ML PREOP ONCALL IV (DC) Lidocaine HCl (LIDOCAINE HCL/PF) 2 ML PREOP ONCALL LOCAL (DC) Lidocaine HCl (LIDOCAINE HCL/PF) 2 ML PREOP ONCALL LOCAL (DC) Sodium Chloride (SODIUM CHLORIDE 0.9%) 500 ML PREOP ONCALL IV (DC) Sodium Chloride (SODIUM CHLORIDE 0.9%) 500 ML PREOP ONCALL IV (DC) Sodium Chloride (SODIUM CHLORIDE 0.9%) 1,000 ML PREOP ONCALL IV (DC) Sodium Chloride (SODIUM CHLORIDE) 5 ML ASDIR PRN IV (DC) Sodium Chloride (SODIUM CHLORIDE) 10 ML ASDIR PRN IV (DC) Sodium Chloride (SODIUM CHLORIDE 0.9%) 250 ML ASDIR PRN IV (DC) Meropenem (MEROPENEM) 500 MG Q6H IV Sterile Water (WATER FOR INJECTION) 10 MLDaptomycin (CUBICIN 500MG) 700 MG Q24H IV (CKD) Sodium Chloride (SODIUM CHLORIDE 0.9%) 50 MLFamotidine (PEPCID) 20 MG BID PO Lorazepam (ATIVAN) 1 MG ONCE PRN IV Sodium Chloride (SODIUM CHLORIDE) 0 ASDIR PRN IV Insulin Human Lispro (HUMALOG) 7 UNIT AC SUBQ Insulin Human Lispro (HUMALOG) 0 AC HS SUBQ Dextrose/Water (DEXTROSE 10% IN WATER) 125 ML ASDIR PRN IV (CKD) Dextrose/Water (DEXTROSE 10% IN WATER) 250 ML ASDIR PRN IV (CKD) Glucagon (GLUCAGON) 1 MG ASDIR PRN IM Dextrose/Water (Dextrose 10% 1,000 mL) 1,000 ML ASDIR IV Acetaminophen (TYLENOL) 650 MG Q6H PRN PRN PO Bisacodyl (DULCOLAX) 10 MG DAILY PRN PRN RECTAL Docusate Sodium (COLACE) 100 MG Q12H PRN PRN PO Ondansetron HCl (ZOFRAN) 4 MG Q6H PRN PRN IV Heparin Sodium (HEPARIN 5000 UNITS/ML) 5,000 UNIT Q8HR SUBQ Physical ExamGeneral appearance: alert, awake, orientedHead/Eyes: normocephalicENT: moist mucosal membranesNeck: no JVDCardiovascular: regular rate rhythm, no heaveRespiratory: aerating well, clear to auscultation, symmetric expansion, no distressAbdomen: non-tender, normal bowel sounds, soft, no distentionGenitourinary: no bladder distentionExtremities: R foot in dressingNeuro/DIRECTOR OPERATING ROOM: alert, oriented X 3, 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 Considered stroke alert: noSkin: no rashPsychiatry: normal affect, normal judgment/insight, normal mood ResultsFindings/Data:Laboratory Tests 08/29 1709 1302 1218 Chemistry Sodium (134 [...] 110 MG/DL) 145 H 103 206 H 185 H Calcium (8.0 - 10.5 mg/dL) 7.2 [...] (Auto) (14.0 - 32.0 %) 10.0 L [place] % (Auto) (4.8 - 9.0 %) 5.6 Eos % (Auto) (0.3 - 3.7 %) 0.5 Baso % (Auto) (0.0 - 2.0 %) 0.1 Neut # (Auto) (2.0 - 7.6 x10 3/uL) 11.78 H Lymph # (Auto) (1.0 - 3.8 x10 3/uL) 1.42 [place] # (Auto) (0.1 - 0.8 x10 3/uL) 0.79 Eos # (Auto) (0.0 - 0.2 x10 3/uL) 0.07 Baso # (Auto) (0.0 - 0.2 x10 3/uL) 0.02 Abs Immat Gran (auto) (0.00 - 0.03 x10 3/uL) 0.08 H Add Manual Diff NO Immature Gran % (0.0 - 2.0 %) 0.6 Nucleated RBC % (0 - 0 %) 0.0 Nucleated RBCs # (Man) (0.0 - 0.1 x10 3/uL) 0.00 Radiology data:Recent Impressions:ULTRASOUND - DUP VEIN UNI/LTD 08/28 0857 Report Impression - Status: SIGNED Entered: 08/28/2022 09 IMPRESSION: 1. No evidence of venous thrombosis involving left lower extremity. 2. Approximately 8 x 2 x 1.3 cm complex fluid collection along the left upper calf probably representing a small hematoma. Impression By: [email or web address] - Roger Parra M.D.RADIOLOGY - XR FLUOROSCOPY 0-60 MIN 08/28 1101 Report Impression - Status: SIGNED Entered: 08/28/2022 1120 IMPRESSION: Fluoroscopy dosage documentation. See also separate procedure notes. Impression By: [email or web address] - Bishop Atkins M.D. Diagnosis, Assessment Plan Free Text DxA P NotesFree text DxA P notes:DKADM 2, poorly controlledsevere gas gangrene, right foot/necrotizing fascitis - s/p BKAMRSA bacteremiaAKIsevere hyponatremia likely due to combination of severe hyperglycemia and dehydration from DKAsepsis due to foot infectionDM neuropathyHTNanemia, acute due to blood lossleft calf hematomaprostatic abscess with Citrobacter and enterococcus Plans: - admit to ICU - continue [...] planning for I D today. Surgery on standby if needed to further debride his lower leg vs amputation. - WBC improving - will type and cross for blood and transfuse if less than 7 gms - d.w at [...] wean off insulin drip. Subq insulin and sliding scale. 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 will likely need wound vac at some point - off [...] transfuse blood for anemia. no overt blood loss - continue IV antibiotics - mobilize - pulse lavage to wound. ? wound vac - continue to monitor blood sugars - floor transfer - d/w 08/24/2022 - follow hgb and transfuse as needed - IV antibiotics - anesthesia consult for MRI - blood sugars ok - pulse lavage - await podiatry eval for wound care - ? wound vac - d.w at bedside 08/25/22Continue abx (Dapto and Teflaro) as per IDUpdated Urology on MRI results, Dr. Du will review images and discuss with family for possible prostate/seminal vesicle abscessCont wound care as per Podiatry, may have debridement today BP and BS well controlled K+ high, repeat levelHgb 7.3 stableDiscussed with at bedside 08/26/2022 - hgb low. will transfuse 2 units - d.w Dr. Pedersen - patient has lost so much tissues in his foot that his potential for wound closure and usability of his foot is poor. Recommendations made to proceed with BKA - continue to monitor blood sugars - IV antibitoics - wound care - urology planning for aspiration of prostatic cyst seen on MRI. PSA normal - OOB 08/27/22s/p transfusion planned for BKA IV antibiotics Wound care DM - managed with insulin DVT prophylaxis 08/28/2022 - noted left leg swelling and pain - patient on Heparin SQ for VTE. will order stat venous US - planning for right BKA today - continue IV antibiotics per ID - follow blood sugars closely - will need PT/OT and possible rehab post surgery - d/w at bedside 08/29/2022 - US [...] and transfuse if hgb less than 7 gms - Heparin SQ for VTE at 0659 RPT #:[id number] OF REPORTPRProgress [id number]:54:00G.[id number] able for patient ykijMKPTWRDVFMIIHN8956-02-43A33:59:53 [facility] 2022-08-28 17:45:00 [id number]/qL bQ/qbPiAs9m2zDtaWg4FzSWgK1G/M dLe6Hz3ersvuvqg41RoF+igP3PT5878-71-95O88:45:00 [facility] ([facility])Endocrinology Progress NoteREPORT#:[id number] REPORT STATUS: SignedDATE:08/28/22 TIME: 0017 PATIENT: KARMA ROWLAND UNIT #: [id number]#: [id number] [id number] AGE: 56 SEX: M ATTEND: Wilbert Ramires [facility] AUTHOR: Braxton Chapin MD * ALL edits or amendments must be made on the electronic/computer document * SubjectivePatient reports: no complaints Objective GeneralVS:Last Documented: Result Date Time Pulse Ox 98 08/28 1730 B/P 152/70 08/28 1730 B/P Mean 101 08/28 1730 Pulse 91 08/28 1730 Temp 36.9 08/28 1600 O2 Delivery Room air 08/28 1235 Resp 11 08/28 1235 O2 Flow Rate 7 08/28 1222 PATIENT WEIGHT: Weight (lb): 165Weight (oz): 2.02Weight (kg): 74.900 Medications:Active Meds + DC'd Last 24 HrsCefazolin Sodium (KEFZOL OR ANCEF) 1 GM Q8H IV Sodium Chloride (SODIUM CHLORIDE) 10 MLFentanyl Citrate (SUBLIMAZE) 0 .STK-MED ONE .ROUTE (DC) Norepinephrine Bitartrate (LEVOPHED BITARTATE) 0 .STK-MED ONE IV (DC) Phenylephrine HCl (YENNY-SYNEPHRINE 10MG/ML AMP) 0 .STK-MED ONE .ROUTE (DC) Diphenhydramine HCl (BENADRYL) 12.5 MG PACU ONCE PRN IV (DC) Fentanyl Citrate (SUBLIMAZE) 100 MCG PACU Q10MIN PRN PRN IV (DC) Fentanyl Citrate (SUBLIMAZE) 50 MCG PACU Q10MIN PRN PRN IV (DC) Hydralazine HCl (APRESOLINE) 5 MG PACU Q10MIN PRN PRN IV (DC) Hydrocodone Bitart/Acetaminophen (NORCO 5/325) 1 TAB PACU ONCE PO (DC) Hydromorphone HCl (DILAUDID) 1 MG PACU Q10MIN PRN PRN IV (DC) Hydromorphone HCl (DILAUDID) 0.5 MG PACU Q5MIN PRN PRN IV (DC) Insulin Human Lispro (HUMALOG) 0 PACU ONCE PRN SUBQ (DC) Labetalol HCl (LABETALOL HCL) 5 MG PACU Q10MIN PRN PRN IV (DC) Meperidine HCl (MEPERIDINE HCL/PF) 12.5 MG PACU ONCE PRN IV (DC) Morphine Sulfate (morphine SULFATE) 2 MG PACU Q10MIN PRN PRN IV (DC) Ondansetron HCl (ZOFRAN) 4 MG PACU ONCE PRN IV (DC) Promethazine HCl (PHENERGAN) 25 MG PACU ONCE PRN PO (DC) Ropivacaine (NAROPIN 0.5% 150 MG/30mL) 150 MG ASDIR PRN LOCAL (DC) Tramadol HCl (ULTRAM) 50 MG PACU ONCE PO (DC) Lidocaine HCl (LIDOCAINE HCL/PF) 0 .STK-MED ONE .ROUTE (DC) Ondansetron HCl (ZOFRAN) 0 .STK-MED ONE .ROUTE (DC) Phenylephrine HCl (YENNY-SYNEPHRINE 10MG/ML AMP) 0 .STK-MED ONE .ROUTE (DC) Fentanyl Citrate (SUBLIMAZE) 0 .STK-MED ONE .ROUTE (DC) Lidocaine HCl (XYLOCAINE) 0 .STK-MED ONE .ROUTE (DC) Midazolam HCl (VERSED) 0 .STK-MED ONE .ROUTE (DC) Propofol (DIPRIVAN 200MG/20ML INJECTION) 20 ML .STK-MED ONE IV (DC) Insulin Glargine (Lantus/Semglee) 15 UNIT BEDTIME SUBQ Acetaminophen (TYLENOL EXTRA STRENGTH) 1,000 MG PREOP ONCALL PO (DC) Gabapentin (NEURONTIN) 200 MG PREOP ONCALL PO (DC) Lactated Ringer's (LACTATED RINGERS) 1,000 ML PREOP ONCALL IV (DC) Lidocaine HCl (LIDOCAINE HCL/PF) 2 ML PREOP ONCALL LOCAL (DC) Lidocaine HCl (LIDOCAINE HCL/PF) 2 ML PREOP ONCALL LOCAL (DC) Sodium Chloride (SODIUM CHLORIDE 0.9%) 500 ML PREOP ONCALL IV (DC) Sodium Chloride (SODIUM CHLORIDE 0.9%) 500 ML PREOP ONCALL IV (DC) Sodium Chloride (SODIUM CHLORIDE 0.9%) 1,000 ML PREOP ONCALL IV (DC) Sodium Chloride (SODIUM CHLORIDE) 5 ML ASDIR PRN IV (DC) Sodium Chloride (SODIUM CHLORIDE) 10 ML ASDIR PRN IV (DC) Sodium Chloride (SODIUM CHLORIDE 0.9%) 250 ML ASDIR PRN IV (DC) Meropenem (MEROPENEM) 500 MG Q6H IV Sterile Water (WATER FOR INJECTION) 10 MLDaptomycin (CUBICIN 500MG) 700 MG Q24H IV (CKD) Sodium Chloride (SODIUM CHLORIDE 0.9%) 50 MLFamotidine (PEPCID) 20 MG BID PO Lorazepam (ATIVAN) 1 MG ONCE PRN IV Sodium Chloride (SODIUM CHLORIDE) 0 ASDIR PRN IV Insulin Glargine (Lantus/Semglee) 25 UNIT BEDTIME SUBQ (DC) Insulin Human Lispro (HUMALOG) 7 UNIT AC SUBQ Insulin Human Lispro (HUMALOG) 0 AC HS SUBQ Dextrose/Water (DEXTROSE 10% IN WATER) 125 ML ASDIR PRN IV (CKD) Dextrose/Water (DEXTROSE 10% IN WATER) 250 ML ASDIR PRN IV (CKD) Glucagon (GLUCAGON) 1 MG ASDIR PRN IM Dextrose/Water (Dextrose 10% 1,000 mL) 1,000 ML ASDIR IV Acetaminophen (TYLENOL) 650 MG Q6H PRN PRN PO Bisacodyl (DULCOLAX) 10 MG DAILY PRN PRN RECTAL Docusate Sodium (COLACE) 100 MG Q12H PRN PRN PO Ondansetron HCl (ZOFRAN) 4 MG Q6H PRN PRN IV Heparin Sodium (HEPARIN 5000 UNITS/ML) 5,000 UNIT Q8HR SUBQ Physical ExamGeneral appearance: alert, awake Diagnosis, Assessment PlanHospital course to date:Laboratory Tests: 08/28 08/28 08/28 08/28 1709 1302 1218 0624 Chemistry POC Glucose (70 - 110 MG/DL) 103 206 H 185 H 180 H 08/28 08/27 08/27 0420 2050 1825 [...] (Auto) (14.0 - 32.0 %) 8.2 L [place] % (Auto) (4.8 - 9.0 %) 4.1 L Eos % (Auto) (0.3 - 3.7 %) 0.4 Baso % (Auto) (0.0 - 2.0 %) 0.1 Neut # (Auto) (2.0 - 7.6 x10 3/uL) 11.92 H Lymph # (Auto) (1.0 - 3.8 x10 3/uL) 1.13 [place] # (Auto) (0.1 - 0.8 x10 3/uL) 0.57 Eos # (Auto) (0.0 - 0.2 x10 3/uL) 0.05 Baso # (Auto) (0.0 - 0.2 x10 3/uL) 0.01 Abs Immat Gran (auto) (0.00 - 0.03 x10 3/uL) 0.07 H Add Manual Diff NO Immature Gran % (0.0 - 2.0 %) 0.5 Nucleated RBC % (0 - 0 %) 0.0 Nucleated RBCs # (Man) (0.0 - 0.1 x10 3/uL) 0.00 Microbiology: Date/Time Procedure - Status Source Growth 08/29 1347 Blood Culture - RECD BLOOD 08/29 1347 Blood Culture - RECD BLOOD Recent Impressions:ULTRASOUND - DUP VEIN UNI/LTD 08/28 0857 Report Impression - Status: SIGNED Entered: 08/28/2022 0927 IMPRESSION: 1. No evidence of venous thrombosis involving left lower extremity. 2. Approximately 8 x 2 x 1.3 cm complex fluid collection along the left upper calf probably representing a small hematoma. Impression By: [email or web address] - Roger Parra M.D.RADIOLOGY - XR FLUOROSCOPY 0-60 MIN 08/28 1101 Report Impression - Status: SIGNED Entered: 08/28/2022 1120 IMPRESSION: Fluoroscopy dosage documentation. See also separate procedure notes. Impression By: [email or web address] - Bishop [...] (Auto) (14.0 - 32.0 %) 7.0 L [place] % (Auto) (4.8 - 9.0 %) 3.3 L Eos % (Auto) (0.3 - 3.7 %) 0.3 Baso % (Auto) (0.0 - 2.0 %) 0.1 Neut # (Auto) (2.0 - 7.6 x10 3/uL) 14.14 H Lymph # (Auto) (1.0 - 3.8 x10 3/uL) 1.11 [place] # (Auto) (0.1 - 0.8 x10 3/uL) 0.52 Eos # (Auto) (0.0 - 0.2 x10 3/uL) 0.04 Baso # (Auto) (0.0 - 0.2 x10 3/uL) 0.02 Abs Immat Gran (auto) (0.00 - 0.03 x10 3/uL) 0.10 H Add Manual Diff NO Immature Gran % (0.0 - 2.0 %) 0.6 Nucleated RBC % (0 - 0 %) 0.0 Nucleated RBCs # (Man) (0.0 - 0.1 x10 3/uL) 0.00 Microbiology: Date/Time Procedure - Status Source Growth [...] (Auto) (14.0 - 32.0 %) 7.4 L [place] % (Auto) (4.8 - 9.0 %) 3.9 L Eos % (Auto) (0.3 - 3.7 %) 0.5 Baso % (Auto) (0.0 - 2.0 %) 0.1 Neut # (Auto) (2.0 - 7.6 x10 3/uL) 15.49 H Lymph # (Auto) (1.0 - 3.8 x10 3/uL) 1.31 [place] # (Auto) (0.1 - 0.8 x10 3/uL) 0.69 Eos # (Auto) (0.0 - 0.2 x10 3/uL) 0.08 Baso # (Auto) (0.0 - 0.2 x10 3/uL) 0.01 Abs Immat Gran (auto) (0.00 - 0.03 x10 3/uL) 0.11 H Add Manual Diff NO Immature Gran % (0.0 - 2.0 %) 0.6 Nucleated RBC % (0 - 0 %) 0.0 Nucleated RBCs # (Man) (0.0 - 0.1 x10 3/uL) 0.00 Laboratory Tests: 08/25 08/25 08/25 08/25 1723 1111 1044 1044 Chemistry Potassium (3.4 - 5.0 mEq/L) 4.5 POC Glucose (70 - 110 MG/DL) 132 H 143 H Total Creatine Kinase (46 - 171 Units/L) 17 L Urines Urine Color (YEL/STRAW) YELLOW Urine Appearance (CLEAR) TURBID H Urine pH (5.0 - 7.0) 5.0 Ur Specific [place] (1.005 - 1.030) 1.012 Urine Protein (NEGATIVE) [...] (Auto) (14.0 - 32.0 %) 8.1 L [place] % (Auto) (4.8 - 9.0 %) 4.3 L Eos % (Auto) (0.3 - 3.7 %) 0.5 Baso % (Auto) (0.0 - 2.0 %) 0.1 Neut # (Auto) (2.0 - 7.6 x10 3/uL) 15.44 H Lymph # (Auto) (1.0 - 3.8 x10 3/uL) 1.45 [place] # (Auto) (0.1 - 0.8 x10 3/uL) 0.77 Eos # (Auto) (0.0 - 0.2 x10 3/uL) 0.09 Baso # (Auto) (0.0 - 0.2 x10 3/uL) 0.02 Abs Immat Gran (auto) (0.00 - 0.03 x10 3/uL) 0.13 H Add Manual Diff NO Immature Gran % (0.0 - 2.0 %) 0.7 Nucleated RBC % (0 - 0 %) 0.0 Nucleated RBCs # (Man) (0.0 - 0.1 x10 3/uL) 0.00 Microbiology: Date/Time Procedure - Status Source Growth 08/26 1043 Urine Culture - WKST URINE 08/26 1043 Blood Culture - RECD BLOOD 08/26 1043 Blood Culture - RECD BLOOD Laboratory Tests: 08/20 08/20 08/20 08/20 08/20 1107 0756 0647 0554 0454Chemistry Sodium (134 - 147 mEq/L) 137 Potassium [...] L Albumin (3.4 - 5.0 g/dL) 2.00 LHematology WBC (4.5 - 11.0 x10 3/uL) 22.8 [...] (Auto) (14.0 - 32.0 %) 4.8 L [place] % (Auto) (4.8 - 9.0 %) 2.9 L Eos % (Auto) (0.3 - 3.7 %) 0.0 L Baso % (Auto) (0.0 - 2.0 %) 0.2 Neut # (Auto) (2.0 - 7.6 x10 3/uL) 19.90 H Lymph # (Auto) (1.0 - 3.8 x10 3/uL) 1.10 [place] # (Auto) (0.1 - 0.8 x10 3/uL) 0.66 Eos # (Auto) (0.0 - 0.2 x10 3/uL) 0.00 Baso # (Auto) (0.0 - 0.2 x10 3/uL) 0.04 Abs Immat Gran (auto) (0.00 - 0.03 1.12 Hx10 3/uL) Add Manual Diff NO Immature Gran % (0.0 - 2.0 %) 4.9 H Nucleated RBC % (0 - 0 %) 0.0 Nucleated RBCs # (Man) (0.0 - 0.1 0.00x10 3/uL) 08/20 08/20 08/19 08/19 08/19 0259 [...] 08/19 08/19 08/19 2223 2131 2014 172 1652Chemistry Sodium (134 - 147 mEq/L) 133 L [...] 2.03 Albumin (3.4 - 5.0 g/dL) 1.40 LHematology WBC (4.5 - 11.0 x10 3/uL) 20.3 [...] (Auto) (14.0 - 32.0 %) 3.8 L [place] % (Auto) (4.8 - 9.0 %) 3.7 L Eos % (Auto) (0.3 - 3.7 %) 0.0 L Baso % (Auto) (0.0 - 2.0 %) 0.3 Neut # (Auto) (2.0 - 7.6 x10 3/uL) 17.97 H Lymph # (Auto) (1.0 - 3.8 x10 3/uL) 0.76 L [place] # (Auto) (0.1 - 0.8 x10 3/uL) 0.74 Eos # (Auto) (0.0 - 0.2 x10 3/uL) 0.00 Baso # (Auto) (0.0 - 0.2 x10 3/uL) 0.07 Abs Immat Gran (auto) (0.00 - 0.03 0.71 Hx10 3/uL) Add Manual Diff NO Immature Gran % (0.0 - 2.0 %) 3.5 H Nucleated RBC % (0 - 0 %) 0.0 Nucleated RBCs # (Man) (0.0 - 0.1 0.00x10 3/uL) 08/19 08/19 1622 1601 Chemistry POC Glucose (70 - 110 MG/DL) 232 H Urines Urine Color (YEL/STRAW) YELLOW Urine Appearance (CLEAR) SL CLOUDY Urine pH (5.0 - 7.0) 5.0 Ur Specific [place] (1.005 - 1.030) 1.013 Urine Protein (NEGATIVE) [...] 145 Blood Culture - ORD BLOOD 08/20 1458 [...] (Auto) (14.0 - 32.0 %) 4.3 L [place] % (Auto) (4.8 - 9.0 %) 3.1 L Eos % (Auto) (0.3 - 3.7 %) 0.0 L Baso % (Auto) (0.0 - 2.0 %) 0.3 Neut # (Auto) (2.0 - 7.6 x10 3/uL) 19.17 H Lymph # (Auto) (1.0 - 3.8 x10 3/uL) 0.91 L [place] # (Auto) (0.1 - 0.8 x10 3/uL) 0.67 Eos # (Auto) (0.0 - 0.2 x10 3/uL) 0.01 Baso # (Auto) (0.0 - 0.2 x10 3/uL) 0.07 Abs Immat Gran (auto) (0.00 - 0.03 x10 3/uL) 0.51 H Add Manual Diff NO Immature Gran % (0.0 - 2.0 %) 2.4 H Nucleated RBC % (0 - 0 %) 0.0 Nucleated RBCs # (Man) (0.0 - 0.1 x10 3/uL) 0.00 08/18 08/18 08/18 08/18 2246 2157 1854 [...] 1210 Gram Stain - RES ABSCESS Recent Impressions:ULTRASOUND - DUP LE ART UNI/LTD 08/19 0950 Report Impression - Status: SIGNED Entered: 08/19/2022 1056 IMPRESSION: No sonographic evidence for flow-limiting stenosis in the right lower extremity arterial system. Impression By: [email or web address] - Abraham Ross M.D. Laboratory Tests: 08/18 08/18 08/18 08/18 08/18 1430 1430 1404 1309 1203Chemistry Sodium (134 - 147 mEq/L) 131 L [...] 20.0 L Cholesterol/HDL Ratio (3.43 - 4.97 4.00RATIO) TSH (0.42 - 5.47) 0.96 Free T4 (0.77 - 1.61 ng/dL) 0.7 L 08/18 08/18 08/18 08/18 08/18 1107 1004 0900 0823 0549 Chemistry POC Glucose (70 - 110 MG/DL) 223 H 304 H 405 H 449 H Hemoglobin A1c (4.8 - 6.0 %A1C) 13.4 H 08/18 08/18 08/18 0549 0305 0207Blood Gas Puncture Site R Radial O2 Saturation [...] O2 Delivery Device Room Air FiO2 (%) 21Chemistry Sodium (134 - 147 mEq/L) 121 *L [...] 2.34 Albumin (3.4 - 5.0 g/dL) 1.60 LSerology Influenza Type A (PCR) (Negative) Negative Influenza Type B (PCR) (Negative) NegativeToxicology Acetone, Quant (Neg - <20 mg/dL) Large [...] Date/Time Procedure - Status Source Growth 08/18 0815 Wound Culture - ORD FOOT 08/18 206 Wound Culture - RECD FOOT 08/18 206 Group A Streptococcus Screen (VERONICA) - COMP THROAT 08/18 206 Streptococcus Culture - COMP THROAT 08/18 202 Blood Culture - RES BLOOD 08/18 202 Blood Culture Gram Stain - RES BLOOD 08/18 202 Blood Culture - RES BLOOD 08/18 020 Blood Culture Gram Stain - RES BLOOD Recent Impressions:RADIOLOGY - XR CHEST 2 V 08/18 020 Report Impression - Status: SIGNED Entered: 08/18/2022316 IMPRESSION: Ill-defined somewhat nodular opacity measuring 3.2 cm laterally in the right mid lung suspicious for rounded pneumonia given provided history, but underlying neoplasm can not be excluded. Followup radiographs are recommended after appropriate treatment in order to document complete resolution and exclude an underlying process or neoplasm. Impression By: [email or web address] Cr Adams M.D.RADIOLOGY - XR FOOT 3 + V RT 08/18 0238 Report Impression - Status: SIGNED Entered: 08/18/2022 0358 IMPRESSION: No acute osseous findings. No convincing evidence for osteomyelitis. MRI is more sensitive for detecting osteomyelitis.Impression By: Ankur Ladd M.D.CAT SCAN - CT ABD PELVIS W/CONT 08/18 0339 Report Impression - Status: SIGNED Entered: 08/18/2022 0546 IMPRESSION: 3.3 cm hypodensity in the left posterior prostate or seminal vesicle. This could represent an abscess. Contrast-enhanced MRI of the pelvis would be helpful for further evaluation.No acute intra-abdominal findings otherwise.Impression By: Ankur Ladd M.D.CAT SCAN - CT LOWER EXTRM W/O C RT 08/18 0645 Report Impression - Status: SIGNED Entered: 08/18/2022 0827 IMPRESSION: Extensive soft tissue edema with mottled gas in the subcutaneous and intramuscular compartments of the foot compatible with gas-forming infection. Disease extends into the visualized distal leg. Impression By: Jamel Dorantes M.D. 1. 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 DKA3. Cellulitis and gangrene of the right foot.4. Sepsis5. Altered mental status6. High LFTsBlood sugar 167-107 mg/dL.HbA1c 13.4%White count 17.9Sodium 121.Adjust insulin dose.Wound care and IV antibiotics.For wound debridement. at 1746 RPT #:[id number] OF REPORTPRProgress [id number]:45:00G.[id number] able for patient sgqlGNXKWKNHSUKWJV7895-50-01Q18:46:56 [facility] 2022-08-28 14:47:00 [id number]+jcI+ [id number]+GYPdOmp3o 3PUQkw++WmAdGq0FfZG4GTa+M9J9400-82-32Z68:47:00 [facility] ([facility])Podiatry Progress NoteREPORT#:[id number] REPORT STATUS: SignedDATE:08/28/22 TIME: 1446 PATIENT: KARMA ROWLAND UNIT #: [id number]#: [id number] [address] AGE: 56 SEX: M ATTEND: Wilbert Ramires MDADM AUTHOR: Liam Pedersen DPM * ALL edits or amendments must be made on the electronic/computer document * SubjectiveChief complaint:seen at bedside,. family memebers next to him denies having any pain foot covered and protected and offloaded drainage noted serosang. increased warmthPatient reports: no confusion, no cough, no fatigue, no heartburn Objective GeneralVS:Last Documented: Result Date Time Pulse Ox 97 08/28 1330 B/P 131/61 08/28 1330 B/P Mean 88 08/28 1330 Pulse 84 08/28 1330 Temp 36.9 08/28 1300 O2 Delivery Room air 08/28 1235 Resp 11 08/28 1235 O2 Flow Rate 7 08/28 1222 PATIENT WEIGHT: Weight (lb): 165Weight (oz): 2.02Weight (kg): 74.900 Medications:Active Meds + DC'd Last 24 HrsCefazolin Sodium (KEFZOL OR ANCEF) 1 GM Q8H IV Sodium Chloride (SODIUM CHLORIDE) 10 MLFentanyl Citrate (SUBLIMAZE) 0 .STK-MED ONE .ROUTE (DC) Norepinephrine Bitartrate (LEVOPHED BITARTATE) 0 .STK-MED ONE IV (DC) Phenylephrine HCl (YENNY-SYNEPHRINE 10MG/ML AMP) 0 .STK-MED ONE .ROUTE (DC) Diphenhydramine HCl (BENADRYL) 12.5 MG PACU ONCE PRN IV (DC) Fentanyl Citrate (SUBLIMAZE) 100 MCG PACU Q10MIN PRN PRN IV (DC) Fentanyl Citrate (SUBLIMAZE) 50 MCG PACU Q10MIN PRN PRN IV (DC) Hydralazine HCl (APRESOLINE) 5 MG PACU Q10MIN PRN PRN IV (DC) Hydrocodone Bitart/Acetaminophen (NORCO 5/325) 1 TAB PACU ONCE PO (DC) Hydromorphone HCl (DILAUDID) 1 MG PACU Q10MIN PRN PRN IV (DC) Hydromorphone HCl (DILAUDID) 0.5 MG PACU Q5MIN PRN PRN IV (DC) Insulin Human Lispro (HUMALOG) 0 PACU ONCE PRN SUBQ (DC) Labetalol HCl (LABETALOL HCL) 5 MG PACU Q10MIN PRN PRN IV (DC) Meperidine HCl (MEPERIDINE HCL/PF) 12.5 MG PACU ONCE PRN IV (DC) Morphine Sulfate (morphine SULFATE) 2 MG PACU Q10MIN PRN PRN IV (DC) Ondansetron HCl (ZOFRAN) 4 MG PACU ONCE PRN IV (DC) Promethazine HCl (PHENERGAN) 25 MG PACU ONCE PRN PO (DC) Ropivacaine (NAROPIN 0.5% 150 MG/30mL) 150 MG ASDIR PRN LOCAL (DC) Tramadol HCl (ULTRAM) 50 MG PACU ONCE PO (DC) Lidocaine HCl (LIDOCAINE HCL/PF) 0 .STK-MED ONE .ROUTE (DC) Ondansetron HCl (ZOFRAN) 0 .STK-MED ONE .ROUTE (DC) Phenylephrine HCl (YENNY-SYNEPHRINE 10MG/ML AMP) 0 .STK-MED ONE .ROUTE (DC) Fentanyl Citrate (SUBLIMAZE) 0 .STK-MED ONE .ROUTE (DC) Lidocaine HCl (XYLOCAINE) 0 .STK-MED ONE .ROUTE (DC) Midazolam HCl (VERSED) 0 .STK-MED ONE .ROUTE (DC) Propofol (DIPRIVAN 200MG/20ML INJECTION) 20 ML .STK-MED ONE IV (DC) Insulin Glargine (Lantus/Semglee) 15 UNIT BEDTIME SUBQ Acetaminophen (TYLENOL EXTRA STRENGTH) 1,000 MG PREOP ONCALL PO (DC) Gabapentin (NEURONTIN) 200 MG PREOP ONCALL PO (DC) Lactated Ringer's (LACTATED RINGERS) 1,000 ML PREOP ONCALL IV (DC) Lidocaine HCl (LIDOCAINE HCL/PF) 2 ML PREOP ONCALL LOCAL (DC) Lidocaine HCl (LIDOCAINE HCL/PF) 2 ML PREOP ONCALL LOCAL (DC) Sodium Chloride (SODIUM CHLORIDE 0.9%) 500 ML PREOP ONCALL IV (DC) Sodium Chloride (SODIUM CHLORIDE 0.9%) 500 ML PREOP ONCALL IV (DC) Sodium Chloride (SODIUM CHLORIDE 0.9%) 1,000 ML PREOP ONCALL IV (DC) Sodium Chloride (SODIUM CHLORIDE) 5 ML ASDIR PRN IV (DC) Sodium Chloride (SODIUM CHLORIDE) 10 ML ASDIR PRN IV (DC) Sodium Chloride (SODIUM CHLORIDE 0.9%) 250 ML ASDIR PRN IV (DC) Meropenem (MEROPENEM) 500 MG Q6H IV Sterile Water (WATER FOR INJECTION) 10 MLDaptomycin (CUBICIN 500MG) 700 MG Q24H IV (CKD) Sodium Chloride (SODIUM CHLORIDE 0.9%) 50 MLFamotidine (PEPCID) 20 MG BID PO Lorazepam (ATIVAN) 1 MG ONCE PRN IV Sodium Chloride (SODIUM CHLORIDE) 0 ASDIR PRN IV Insulin Glargine (Lantus/Semglee) 25 UNIT BEDTIME SUBQ (DC) Insulin Human Lispro (HUMALOG) 7 UNIT AC SUBQ Insulin Human Lispro (HUMALOG) 0 AC HS SUBQ Dextrose/Water (DEXTROSE 10% IN WATER) 125 ML ASDIR PRN IV (CKD) Dextrose/Water (DEXTROSE 10% IN WATER) 250 ML ASDIR PRN IV (CKD) Glucagon (GLUCAGON) 1 MG ASDIR PRN IM Dextrose/Water (Dextrose 10% 1,000 mL) 1,000 ML ASDIR IV Acetaminophen (TYLENOL) 650 MG Q6H PRN PRN PO Bisacodyl (DULCOLAX) 10 MG DAILY PRN PRN RECTAL Docusate Sodium (COLACE) 100 MG Q12H PRN PRN PO Ondansetron HCl (ZOFRAN) 4 MG Q6H PRN PRN IV Heparin Sodium (HEPARIN 5000 UNITS/ML) 5,000 UNIT Q8HR SUBQ I O:24 hour I O ending at 0700: 04/06 0700 04/05 1900 Intake Total 58391.00 Output Total 51991 Balance 290.00 Intake, IV 160.00 Intake, Oral 1380 Intake, Other 36881 Number 2 Bowel Movements Output, Other 80258 Patient 74.9 kg Weight Weight Bed scale Measurement Method Dietitian nutrition assessmentThe data set between the solid lines has been imported from the dietitian's assessment. BMI Calculated: 26.7Nutrition related diagnosis: OverweightNutrition diagnosis details: BMI 25-29.9Nutrition problem: Increased nutrient needsNutrition etiology: metabolic demand of wound , healingNutrition signs and symptoms: recent BKA with need for , arginine and glutamineNutrition prescription: 1) Recommend Cardiac ADA diet with 5 CHO/meal. 2) Supplement with Chinedu BID.Dietitian name: Judith Smith, DIETAssessment completed: 08/28/22 Physical ExamGeneral appearance: alert, awake, orientedWound/incision: Location:Right foot to right ankle. DP and PT pulses are very weak essentially nonpalpable. There is severe edema of the right foot to the right ankle, better. There is erythema of the right foot to the right ankle, much better. Not really any ascending lymphangitis past there. Crepitation is at the medial right hindfoot and the dorsal right midfoot are significantly less. There is no longer crepitation at the lateral right ankle. There is some bullae that are peeling medial and lateral. Sensation is greatly decreased on the right foot. base of three wounds fibrotic. sero purulent drainage. bones and tendons exposed. Left foot has no ulcers but has OA changes at ankle with some chronic edema.LE vascular pulse assess:Nonpalpable R posterior tibialis, Nonpalpable R dorsalis pedis Considered stroke alert: no ResultsFindings/Data:Laboratory Tests: 08/28 08/28 08/28 08/28 08/27 1302 1218 0624 0420 2050Chemistry Sodium (134 - 147 mEq/L) 137 Potassium [...] L Albumin (3.4 - 5.0 g/dL) 1.30 LHematology WBC (4.5 - 11.0 x10 3/uL) 13.8 [...] (Auto) (14.0 - 32.0 %) 8.2 L Len[place] % (Auto) (4.8 - 9.0 %) 4.1 L Eos % (Auto) (0.3 - 3.7 %) 0.4 Baso % (Auto) (0.0 - 2.0 %) 0.1 Neut # (Auto) (2.0 - 7.6 x10 3/uL) 11.92 H Lymph # (Auto) (1.0 - 3.8 x10 3/uL) 1.13 Lenoir # (Auto) (0.1 - 0.8 x10 3/uL) 0.57 Eos # (Auto) (0.0 - 0.2 x10 3/uL) 0.05 Baso # (Auto) (0.0 - 0.2 x10 3/uL) 0.01 Abs Immat Gran (auto) (0.00 - 0.03 0.07 Hx10 3/uL) Add Manual Diff NO Immature Gran % (0.0 - 2.0 %) 0.5 Nucleated RBC % (0 - 0 %) 0.0 Nucleated RBCs # (Man) (0.0 - 0.1 0.00x10 3/uL) 08/27 08/27 1825 1728 Chemistry Sodium [...] (8.0 - 10.5 mg/dL) 7.5 L Recent Impressions:ULTRASOUND - DUP VEIN UNI/LTD 08/28 0857 Report Impression - Status: SIGNED Entered: 08/28/2022 0927 IMPRESSION: 1. No evidence of venous thrombosis involving left lower extremity. 2. Approximately 8 x 2 x 1.3 cm complex fluid collection along the left upper calf probably representing a small hematoma. Impression By: [email or web address] - Roger Parra M.D.RADIOLOGY - XR FLUOROSCOPY 0-60 MIN 08/28 1101 Report Impression - Status: SIGNED Entered: 08/28/2022 1120 IMPRESSION: Fluoroscopy dosage documentation. See also separate procedure notes. Impression By: [email or web address] - Bishop Atkins M.D. Diagnosis, Assessment PlanFree Text A P:Gas gangrene right foot and right ankle (Gas in tissues/abscess)Diabetes with peripheral neuropathyMinimal peripheral vascular diseaseLeukocytosisSepsisDKAEdema and arthritis left ankle s/p surgical debridement and washoutCAT scan shows gas in 3 locationsX-rays right foot show no osseous changepacking with Iodoform.IV antibioticsMonitor leukocytosisNIAS: minimal PVD right08/18 wound culture: MRSA (This one is not accurate, it is of skin that was intact)08/19 OR culture: MRSAblood cultures: MRSAOffloading bootICU for nowpulse lavage by physical therapyace wrap compression left ankleMRI: osteo plan for BKA right with Dr. Leroy todayvenous u/s left no dvt at 1448 RPT #:[id number] OF REPORTPRProgress [id number]:47:00G.[id number] able for patient zbbiVBCIYROLVAZCTM5260-03-80H82:48:40 [facility] 2022-08-28 14:44:00 [id number]+Sheyla BnRhvMwRpiJcqCANwoPQyxe1dCS7193-33-63X02:44:00 [facility] ([facility])Infectious Dis. Progress NoteREPORT#:[id number] REPORT STATUS: SignedDATE:08/28/22 TIME: 1444 PATIENT: KARMA ROWLAND UNIT #: [id number]#: [id number] [facility] AGE: 56 SEX: M ATTEND: Wilbert Ramires [facility] AUTHOR: Merry Wolff MD * ALL edits or amendments must be made on the electronic/computer document * SubjectiveChief complaint:Follow-up on MRSA bacteremia, right lower extremity necrotizing soft tissue infection.HPI:PT is a 56yr old male with history of diabetes mellitus type 2, hypertension whowas admitted with altered mental status and right-sided foot infection. According to him, he noticed a blister on his right foot around 3 days prior to presentation. His foot got progressively more swollen and erythema extended proximally to his lateral foot and ankle. CT abdomen and pelvis with contrast is concerning for possible prostate abscess. CT of lower extremity without contrast shows extensive soft tissue edema with mottled gas in the subcutaneous and intramuscular compartments of the foot, compatible with gas-forming infection. Patient's blood cultures have come back positive for MRSA in 2 out of 2 sets. PT has had persistent (+)Ve cx for MRSA 08/18- 08/22. He underwent a debridement of his foot on 08/19 and cx grew MRSA. PT was started on Vancomycin and clindamycin on 08/18. His MRI showed a prostate abscess. 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 08/25 PT is afebrile, his WBX is 17.9, he is awake and alert. at the bedside 08/26 plan for transrectal aspiration today and BKA on 08/28, pt is afebrile, WBC is17.7, blood cx sent on 08/25 still positive, urine cx sent on 08/25 contaminated 08/27 s/p transrectal aspiration and unroofing of prostate abscess 08/26, aspirationcx growing GNR, pt is afebrile, WBC down to 15.9 from 17.7, 08/28 Pt had right BKA today, afebrile, WBC 13.8 from 15.9Nursing reports:No: agitated, cough, diarrhea, fever. Portions of this section were scribed by Jill Quintero on 08/28/22 at 1856 Objective GeneralVS/I O:Vital Signs Date Temp Pulse Resp B/P B/P Mean Pulse Ox FiO2 /-08/28 97.5-98.5 80-97 7-25 97-158/54-73 69-105 93-100 Last Documented: Result Date Time Pulse Ox 95 08/28 1830 B/P 103/55 08/28 1830 B/P Mean 69 04/06 1830 Pulse 86 04/06 1830 Temp 98.4 04/06 1600 Resp 11 04/06 1253 O2 Delivery Room air 04/06 1235 O2 Flow Rate 7 04/06 1222 Vital Signs: Date Time Temp Pulse Resp B/P B/P Pulse O2 O2 Flow FiO2 Mean Ox Delivery Rate 04/06 1830 [...] 2045 86 14 154/73 105 97 04/05 2029 [...] 0700: 04/06 0700 04/05 1900 Intake Total 23827.00 Output Total 69564 Balance 290.00 Intake, IV 160.00 Intake, Oral 1380 Intake, Other 50319 Number 2 Bowel Movements Output, Other 85661 Patient 74.9 kg Weight Weight Bed scale Measurement Method PATIENT WEIGHT: Weight (lb): 165Weight (oz): 2.02Weight (kg): 74.900 Antibiotic start date:Antibiotic: clindamycin Start Date: 08/18-08/25 Antibiotic: Vancomycin Start Date: 08/18-08/25 Antibiotic: daptomycin Start Date:08/25 Antibiotic: Merrem Start Date:08/27 Antibiotic: TeflaroStart Date:08/25-08/27 Physical ExamGeneral appearance: alert, awake, orientedWound/incision: Location:right foot BKAHead/Eyes: atraumatic, normocephalicNeck: supple/no meningismus, no JVDCardiovascular: normal heart sounds, regular rate rhythm, no murmurRespiratory: clear to auscultation, aerating well, symmetric expansionAbdomen: non-tender, soft, no distentionGenitourinary: urinary catheter ( on CBI)Extremities: edema, right BKANeuro/DIRECTOR OPERATING ROOM: alert, 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 Considered stroke alert: noSkin: lesions, no rashPsychiatry: normal affect, normal mood ResultsFindings/Data:Laboratory Tests 08/28 08/28 08/28 08/28 08/27 1302 1218 0624 0420 2049Chemistry Sodium (134 - 147 mEq/L) 137 Potassium [...] L Ionized Calcium Mitzi (1.09 - 1.30 1.12MMOL/L) Phosphorus (2.5 - 4.9 MG/DL) 4.8 Magnesium (1.80 - 2.40 mg/dL) 1.89 Total Bilirubin (0.0 - 1.0 mg/dL) 0.40 AST (15 - 37 IUnit/L) 17 ALT (30 - 65 IUnit/L) 9 L Total Alk Phosphatase (20 - 125 111IUnit/L) Total Protein (6.4 - 8.2 g/dL) 5.8 [...] - 10.5 mg/dL) 7.5 L Laboratory Tests 08/28 0420 Hematology WBC (4.5 [...] (Auto) (14.0 - 32.0 %) 8.2 L Lenoir % (Auto) (4.8 - 9.0 %) 4.1 L Eos % (Auto) (0.3 - 3.7 %) 0.4 Baso % (Auto) (0.0 - 2.0 %) 0.1 Neut # (Auto) (2.0 - 7.6 x10 3/uL) 11.92 H Lymph # (Auto) (1.0 - 3.8 x10 3/uL) 1.13 Lenoir # (Auto) (0.1 - 0.8 x10 3/uL) 0.57 Eos # (Auto) (0.0 - 0.2 x10 3/uL) 0.05 Baso # (Auto) (0.0 - 0.2 x10 3/uL) 0.01 Abs Immat Gran (auto) (0.00 - 0.03 x10 3/uL) 0.07 H Add Manual Diff NO Immature Gran % (0.0 - 2.0 %) 0.5 Nucleated RBC % (0 - 0 %) 0.0 Nucleated RBCs # (Man) (0.0 - 0.1 x10 3/uL) 0.00 Laboratory Tests: 08/28 08/28 08/28 08/28 08/27 1302 1218 0624 0420 2049Chemistry Sodium (134 - 147 mEq/L) 137 Potassium [...] L Albumin (3.4 - 5.0 g/dL) 1.30 LHematology WBC (4.5 - 11.0 x10 3/uL) 13.8 [...] (Auto) (14.0 - 32.0 %) 8.2 L [place] % (Auto) (4.8 - 9.0 %) 4.1 L Eos % (Auto) (0.3 - 3.7 %) 0.4 Baso % (Auto) (0.0 - 2.0 %) 0.1 Neut # (Auto) (2.0 - 7.6 x10 3/uL) 11.92 H Lymph # (Auto) (1.0 - 3.8 x10 3/uL) 1.13 [place] # (Auto) (0.1 - 0.8 x10 3/uL) 0.57 Eos # (Auto) (0.0 - 0.2 x10 3/uL) 0.05 Baso # (Auto) (0.0 - 0.2 x10 3/uL) 0.01 Abs Immat Gran (auto) (0.00 - 0.03 0.07 Hx10 3/uL) Add Manual Diff NO Immature Gran % (0.0 - 2.0 %) 0.5 Nucleated RBC % (0 - 0 %) 0.0 Nucleated RBCs # (Man) (0.0 - 0.1 0.00x10 3/uL) 08/27 08/27 08/27 08/27 08/27 1455 172 1145 8912 0533Chemistry Sodium (134 - 147 mEq/L) 136 137 [...] 5.0 g/dL) 1.30 L 08/27 08/26 08/26 0418 2041 1739 Chemistry POC Glucose (70 - [...] (Auto) (14.0 - 32.0 %) 7.0 L [place] % (Auto) (4.8 - 9.0 %) 3.3 L Eos % (Auto) (0.3 - 3.7 %) 0.3 Baso % (Auto) (0.0 - 2.0 %) 0.1 Neut # (Auto) (2.0 - 7.6 x10 3/uL) 14.14 H Lymph # (Auto) (1.0 - 3.8 x10 3/uL) 1.11 [place] # (Auto) (0.1 - 0.8 x10 3/uL) 0.52 Eos # (Auto) (0.0 - 0.2 x10 3/uL) 0.04 Baso # (Auto) (0.0 - 0.2 x10 3/uL) 0.02 Abs Immat Gran (auto) (0.00 - 0.03 x10 3/uL) 0.10 H Add Manual Diff NO Immature Gran % (0.0 - 2.0 %) 0.6 Nucleated RBC % (0 - 0 %) 0.0 Nucleated RBCs # (Man) (0.0 - 0.1 x10 3/uL) 0.00 Microbiology: Date/Time Procedure - Status Source Growth 08/28 1348 Blood Culture - RECD BLOOD 08/28 1348 Blood Culture - RECD BLOOD 08/26 2217 Wound Culture - RES ABSCESS CITROBACTER FARMERI ENTEROCOCCUS 08/26 221 Anaerobic Culture - RES ABSCESS 08/26 221 Gram Stain - RES ABSCESS Recent Impressions:ULTRASOUND - DUP VEIN UNI/LTD 08/28 0857 Report Impression - Status: SIGNED Entered: 08/28/2022 0927 IMPRESSION: 1. No evidence of venous thrombosis involving left lower extremity. 2. Approximately 8 x 2 x 1.3 cm complex fluid collection along the left upper calf probably representing a small hematoma. Impression By: [email or web address] - Roger Parra M.D.RADIOLOGY - XR FLUOROSCOPY 0-60 MIN 08/28 1101 Report Impression - Status: SIGNED Entered: 08/28/2022 1120 IMPRESSION: Fluoroscopy dosage documentation. See also separate procedure notes. Impression By: [email or web address] - Bishop Atkins M.D. Medication(s) Ordered:Anti-Infective Agents Sig/Jan Start time Last Medication Dose [...] ONCE PRN 08/28 1045 DC PO 08/28 203 Autonomic Drugs Sig/Jan Start time Last Medication Dose Route Stop Time Status Admin Norepinephrine 0 .STK-MED ONE 08/28 1102 DC Bitartrate IV Phenylephrine HCl 0 .STK-MED ONE 08/28 1059 DC .ROUTE Phenylephrine HCl 0 .STK-MED ONE 08/28 1014 DC .ROUTE Blood Formation,Coagulation Sig/Jan Start time Last Medication Dose Route Stop Time Status Admin Heparin Sodium 5,000 UNIT Q8HR 08/18 0600 AC 08/28 SUBQ 09/17 0559 1320 Cardiovascular Drugs Sig/Jan Start time Last Medication Dose Route Stop Time Status Admin Hydralazine HCl 5 MG PACU Q10MIN PRN PRN 08/28 1045 DC IV 08/28 203 Labetalol HCl 5 MG PACU Q10MIN PRN PRN 08/28 1045 DC IV 08/28 203 Lidocaine HCl 0 .STK-MED ONE 08/28 1027 DC .ROUTE Lidocaine HCl 0 .STK-MED ONE 08/28 0922 DC .ROUTE Lidocaine HCl 2 ML PREOP ONCALL 08/27 1929 AC LOCAL 09/26 2358 Lidocaine HCl 2 ML PREOP ONCALL 08/27 1929 AC LOCAL 09/26 2359 Central Nervous System Agents Sig/Jan Start time Last Medication Dose Route Stop Time Status Admin Fentanyl Citrate 0 .STK-MED ONE 08/28 1155 DC .ROUTE Fentanyl Citrate 100 MCG PACU Q10MIN PRN PRN 08/28 1045 DC IV 08/29 2035 Fentanyl Citrate 50 MCG PACU Q10MIN PRN PRN 08/28 1045 DC IV 08/28 203 Hydrocodone Bitart/ 1 TAB PACU ONCE 08/28 1045 DC Acetaminophen PO 08/29 2035 Hydromorphone HCl 1 MG PACU Q10MIN PRN PRN 08/28 1045 DC IV 08/29 2035 Hydromorphone HCl 0.5 MG PACU Q5MIN PRN PRN 08/28 1045 DC IV 08/29 2035 Meperidine HCl 12.5 MG PACU ONCE PRN 08/28 1045 DC IV 08/29 2035 Morphine Sulfate 2 MG PACU Q10MIN PRN PRN 08/28 1045 DC IV 08/29 2035 Tramadol HCl 50 MG PACU ONCE 08/28 1045 DC PO 08/29 2035 Fentanyl Citrate 0 .STK-MED ONE 08/28 921 DC .ROUTE Midazolam HCl 0 .STK-MED ONE 08/28 921 DC .ROUTE Propofol 20 ML .STK-MED ONE 08/28 921 DC IV Acetaminophen 1,000 MG PREOP ONCALL 08/27 1929 CKD PO 09/26 235 Gabapentin 200 MG PREOP ONCALL 08/27 1929 CKD PO 09/26 235 Lorazepam 1 MG ONCE PRN 08/21 09 AC 08/21 IV 09/20 0859 1143 Acetaminophen 650 MG Q6H PRN PRN 08/18 0945 AC 08/28 PO 09/17 0944 0255 Electrolytic, Caloric, And Daniel Sig/Jan Start time Last Medication Dose Route Stop Time Status Admin Lactated Ringer's 1,000 ML PREOP ONCALL 08/27 1929 AC IV 09/26 235 Sodium Chloride 500 ML PREOP ONCALL 08/27 1929 AC IV 09/26 235 Sodium Chloride 500 ML PREOP ONCALL 08/27 1929 AC IV 09/26 235 Sodium Chloride 1,000 ML PREOP ONCALL 08/27 1929 AC IV 09/26 235 Sodium Chloride 5 ML ASDIR PRN 08/27 1929 AC IV 09/26 1928 Sodium Chloride 10 ML ASDIR PRN 08/27 1929 AC IV 09/26 1928 Sodium Chloride 250 ML ASDIR PRN 08/27 1929 AC IV 09/26 1928 Sodium Chloride 0 ASDIR PRN 08/21 09 AC IV 09/20 0859 Dextrose/Water 125 ML ASDIR PRN 08/20 1530 CKD IV 09/19 1529 Dextrose/Water 250 ML ASDIR PRN 08/20 1530 CKD IV 09/19 1529 Dextrose/Water 1,000 ML ASDIR 08/19 1015 AC IV 09/18 1014 Gastrointestinal Drugs Sig/Jan Start time Last Medication Dose Route Stop Time Status Admin Ondansetron HCl 4 MG PACU ONCE PRN 08/28 1045 DC IV 08/29 2035 Ondansetron HCl 0 .STK-MED ONE 08/28 1014 DC .ROUTE Famotidine 20 MG BID 08/21 2100 AC 08/28 PO 09/20 2058 0841 Bisacodyl 10 MG DAILY PRN PRN [...] PACU ONCE PRN 08/28 1045 DC SUBQ 08/29 2035 Insulin Glargine 15 UNIT BEDTIME 08/27 2100 AC 08/27 SUBQ 09/26 205 2141 Insulin Glargine 25 UNIT BEDTIME 08/20 2100 DC 08/24 SUBQ 09/19 205 2132 Insulin Human Lispro 7 UNIT AC 08/20 1630 AC 08/28 SUBQ 09/19 1629 1319 Insulin Human Lispro 0 AC HS 08/20 1630 AC 08/28 SUBQ 09/19 1629 1319 Glucagon 1 MG ASDIR PRN 08/20 1530 AC IM 09/19 1529 Local Anesthetics (Parenteral) Sig/Jan Start time Last Medication Dose Route Stop Time Status Admin Ropivacaine 150 MG ASDIR PRN 08/28 1045 DC LOCAL 08/29 2035 Microbiology:08/28 1348 BLOOD: Blood Culture - RECD08/28 1348 BLOOD: Blood Culture - RECD08/26 2216 ABSCESS: Wound Culture - RES CITROBACTER FARMERI [id number] 2217 ABSCESS: Anaerobic Culture - RES08/26 2216 ABSCESS: Gram Stain - RES Recent Impressions:ULTRASOUND - DUP VEIN UNI/LTD 08/28 0857 Report Impression - Status: SIGNED Entered: 08/28/2022926 IMPRESSION: 1. No evidence of venous thrombosis involving left lower extremity. 2. Approximately 8 x 2 x 1.3 cm complex fluid collection along the left upper calf probably representing a small hematoma. Impression By: [email or web address] - Roger Parra M.D.RADIOLOGY - XR FLUOROSCOPY 0-60 MIN 08/28 1101 Report Impression - Status: SIGNED Entered: 08/28/2022 1120 IMPRESSION: Fluoroscopy dosage documentation. See also separate procedure notes. Impression By: [email or web address] - Bishop Atkins M.D. Portions of this section were scribed by Jill Quintero on 08/28/22 at 1856 Treatment Prophylaxis Treatment ProphylaxisLines: peripheral Portions of this section were scribed by Jill Quintero on 08/28/22 at 1444 Diagnosis, Assessment PlanFree Text A P:Assessment: *MRSA bacteremia-Initial blood cultures from 08/18/2022 positive for MRSA in 2 out of 2 sets.-Repeat blood cultures 08/21/2022 are already positive for MRSA in 2 out of 2 sets, suggesting persistent high-grade bacteremia.-TTE 08/18/2022 negative for any obvious vegetations.*Severe sepsis due to above*Right lower extremity necrotizing fasciitis-MRI of foot (+)Ve for osteomyelitis-s/p debridement on 08/19: cx grew MRSA*DKA*Prostatic abscess*ERIKA*Hyponatremia*Diabetic neuropathy*Diabetes mellitus type 2*Hypertension Plan:08/25-Discussed the possibility of amputation with patient and family at bedside -Recommend JIMENA. -Repeat blood cultures x2 again today.-Continue to repeat serial blood cultures till bacteremia clears. -D/C clindamycin and vancomycin. -start on DAptomycin and Teflaro-check urine cx Discussed with Dr. Du about MRI report 08/26-plan for transrectal aspiration of abscess today-repeat blood cx are still (+)Ve; will repeat blood cx tomorrow-cont on daptomycin and Teflaro day #2-Pt needs a JIMENA r/o endocarditis as pt has high grade persistent bacteremia-plan for Right BKA on 08/28 08/27-s/p transrectal aspiration and unroofing of abscess; cx GNR; will follow- repeat blood cx today--cont on daptomycin and Teflaro day #3-Pt needs a JIMENA r/o endocarditis as pt has high grade persistent bacteremia-plan for Right BKA on 08/28/6s/p right BKA-repeat blood cx sent today-cont on Daptomycin day #4 -NEeds a JIMENA r/o endocarditis-prostate abscess: Coag (+)Ve staph, citrobacter and Enterococcus; on Merrem day#2 Portions of this section were scribed by Jill Quintero on 08/28/22 at 1856 at 0810 RPT #:[id number] OF REPORTPRProgress qbra0944-49-74X83:44:00G.[id number] able for patient cywcFDBXPKLRDBHZAH3185-39-74K59:12:15 [facility] 2022-08-28 12:06:00 [id number] U5Uqj/m87DIPCh1DNDZVnAY6Anxih Hr8ISpXN44MkgcuDINLRGhk+IXi0845-67-31P13:06:[address] [address] PATIENT NAME: KARMA ROWLAND ADMIT DATE: 08/18/22ACCOUNT NO: [id number] ROOM NO: [facility] [place] AGE: 56 REPORT TYPE: OPERATIVE REPORT SEX: M ADMITTING PHYSICIAN:Wilbert Ramires MD ATTENDING PHYSICIAN:Wilbert Ramires MD OPERATION DATE: 08/28/2022 PREOPERATIVE DIAGNOSIS: Right foot and ankle gangrene. POSTOPERATIVE DIAGNOSIS: Right foot and ankle gangrene. PROCEDURE PERFORMED: Right below-knee amputation. SURGEON: ATTENDING SURGEON:: Nixon Leroy MD. ASSISTANTS:1. JAMES Josue.2. Letha PGY-3. ANESTHESIA: General endotracheal anesthesia. 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 The patient went for an urgentdebridement on presentation. The patient's extremity was significantly damagefrom the infection and nonreconstructable from podiatry standpoint, thus a BKA was recommended. The patient was agreeable to proceed. Risks, benefits andalternatives were discussed with the patient. Risks include but not limited topain, bleeding, damage to neurovascular structures, infection, wound dehiscence,phantom pain, knee stiffness, inability to return to baseline activity level,need for further procedures, and anesthetic complications. Benefits includeinfection control and stable extremity for prosthetic fitting. Alternativesinclude no surgery, which was not indicated for this grossly infected extremitywith possible risk of further clinical worsening. Extremity was marked by margarita, confirmed by the patient. Consent was obtained at bedside after theabove has been reviewed. PROCEDURE IN DETAIL: The patient was taken from the ICU down to the operatingroom via stretcher. He was placed supine on the operating table. The patientwas intubated under general endotracheal anesthesia. We began by placing atourniquet around the thigh and a hip roll. The extremity was then prepped anddraped in a sterile fashion. Timeout was performed to ensure the properextremity and appropriate surgery, all were in agreement. We began by markingout our landmarks. We marked our proposed bony cut approximately 10 cm distalfrom the tibial tubercle. We then created our flaps with an anterior two-thirdsanterior incision and a flap approximately 1.5 times longer than the anteriorcut. Timeout was performed to ensure the proper extremity and proper surgery,all were in agreement. We then elevated the extremity and then inflated thetourniquet. We began by making a full-thickness incision with a 10 blade PATIENT NAME: KARMA ROWLAND circumferentially. There was some expression of purulent fluid distally nearthe borders of the demarcation. We then began to dissect on the anterolateralaspect of the lower leg. Once through the anterior compartment musculature, harley identified the deep vessels. The vessels were ligated and cut. The deepperoneal vessel was infiltrated with lidocaine and then transected sharply andallowed to retract the soft tissues. We then completed further transection ofthe musculature medially. Once the tibia was exposed, we then periosteallyelevated proximally as well as posteriorly. An Army[place] was placed posteriorto the tibia to protect the soft tissues.. We then used a large oscillating saw blade to transect the tibia completely. We then identified the fibula and approximately 1 cm prior to this, we made our fibular cut with a bone cutter. A bone hook was used to reflect the lower extremity and an amputation knife was used to complete the amputation posteriorly. We then placed the extremity and in a bag for pathology. We then evaluated the wound. We then irrigated thoroughly debriding all ill-appearing tissue and any collections distally. We identified our distal tibial vessels and nerve. The vessels were ligated and the nerve was identified infiltrating with lidocaine and then transected to allow to retract the soft tissues. Once this was complete, we then debulked the area to allow a tension-free closure. We then beveled the anterior aspect of the tibia and rasped to the bone. Three drill holes were placed. We then placed two Melcher [place] sutures with #5 Ethibond and the fascia of the gastrocnemius. These were then placed through the distal tibia and tied over bony bridge. We then irrigated thoroughly again. We then placed a deep drain. Next, we then began to close the wound in layers. The fascia was closed to the anterior tibial fashion with 0 Vicryl followed by 2-0 Vicryl followed by rob. The extremity was cleansed and dried. A Xeroform was placed over the wounds following Kerlix and an Joan bandage. We then placed extremity in a knee immobilizer and secured the Hemovac drain. The patient was then awoken and taken to recovery in stable condition. All counts were correct at the end of the procedure. ESTIMATED BLOOD LOSS: Approximately 50 mL. SPECIMENS REMOVED: Right lower leg to pathology. COMPLICATIONS: None. DRAINS: Hemovac x1 to the right lower extremity. TUBES: None. IMPLANTS: None. FLUIDS: 100 mL LR. URINE OUTPUT: NA. FINDINGS: As above. DISPOSITION: The patient will go to PACU. He is to be nonweightbearing to theright lower extremity. We will monitor VAC output for possible removalpostoperative day #1 or #2. Dictated By: Nixon Leroy MD PATIENT NAME: KARMA ROWLAND Date Dictated: 08/28/2022 12:06:09Date Transcribed: 08/28/2022 13:10:48JJ/TONI/AHMJob #: [id number] ID: [id number] and Edited by Nixon Leroy MD On 10/15/22 8:24:59 PM at 0827 PATIENT NAME: KARMA ROWLAND setyec2525-28-77W19:10:00G.[id number] lable for patient btooISSQSTRRDWXPVQ8511-08-53C04:27:49 [facility] 2022-08-28 11:57:00 [id number] XFbv0pz8K/Z6P0vMtVkC6fuvyalHT 3hfOg2AqLVX1sMBYgPM3DWl91Q08719-74-10D05:57:00 [facility] ([facility])Op/Inv Procedure Note - BriefREPORT#:[id number] REPORT STATUS: SignedDATE:08/28/22 TIME: 1157 PATIENT: KARMA ROWLAND UNIT #: [id number]#: [id number] [address] AGE: 56 SEX: M ATTEND: Wilbert Ramires [facility] AUTHOR: Nixon Leroy MD * ALL edits or amendments must be made on the electronic/computer document * Op/Inv Proc Note - Brief TEXT Brief Op/Inv Procedure NoteNote details:*PRE-PROCEDURE DIAGNOSIS:[] right foot and ankle gangrene *POST-PROCEDURE DIAGNOSIS:Same[] *PROCEDURE(S) PERFORMED:[]1. right below knee amputation *PRIMARY SURGEON:[]MD Alfred *MEDIA PLANNER / BUYER(S):[]Meaghan Josue, PGY-3 ANESTHETIC:[]geta *ESTIMATED BLOOD LOSS in ml's:[]50 mL *SPECIMEN(S) REMOVED:[]right lower leg *COMPLICATIONS:None[] DRAIN(S):Hemovac x 1[] TUBE(S):None[] IMPLANT(S):None[] FLUIDS:[]500 cc LR URINE OUTPUT:[]n/a *FINDINGS:[]as above DISPOSITION:To PACU[]NWB RLEmonitor vac outputwill need consult for flotech stump protector [id number] at 1206 RPT #:[id number] OF REPORTPNProcedure gqbq3087-05-36L49:57:00G.[id number] able for patient qrhiCWOWIXOBHVORJE0922-00-51E23:06:54 [facility] 2022-08-28 09:52:00 [id number] BcxAKNYJNmDODNAv5oL2BEiI9PB6+ UlrC9M37N2g4NGdIkZHl5u13Ezv6613-52-23T97:52:00 [facility] ([facility])Cardiology Progress NoteREPORT#:[id number] REPORT STATUS: SignedDATE:08/28/22 TIME: 951 PATIENT: KARMA ROWLAND UNIT #: [id number]#: [id number] [address] AGE: 56 SEX: M ATTEND: Wilbert Ramires [facility] AUTHOR: Rohit Benitez 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 No new events overnight. Plan for right BKA today. Objective GeneralVS/I O:24 hour I O ending at 0700: 0406 0700 04/05 1900 Intake Total 82872.00 Output Total 92962 Balance 290.00 Intake, IV 160.00 Intake, Oral 1380 Intake, Other 84476 Number 2 Bowel Movements Output, Other 19922 Patient 165 lb Weight Weight Bed scale Measurement Method Vital Signs: Date Time Temp Pulse Resp B/P B/P Pulse O2 O2 Flow FiO2 Mean Ox Delivery Rate 08/28 0900 86 17 124/64 87 96 08/28 0800 87 13 133/63 90 95 04/06 [...] 2045 86 14 154/73 105 97 04/05 2029 [...] 04/05 1000 82 12 132/61 88 97 PATIENT WEIGHT: Weight (lb): 165Weight (oz): 2.02Weight (kg): 74.900 Medications:Active Meds + DC'd Last 24 HrsFentanyl Citrate (SUBLIMAZE) 0 .STK-MED ONE .ROUTE (DC) Lidocaine HCl (XYLOCAINE) 0 .STK-MED ONE .ROUTE (DC) Midazolam HCl (VERSED) 0 .STK-MED ONE .ROUTE (DC) Propofol (DIPRIVAN 200MG/20ML INJECTION) 20 ML .STK-MED ONE IV (DC) Insulin Glargine (Lantus/Semglee) 15 UNIT BEDTIME SUBQ Acetaminophen (TYLENOL EXTRA STRENGTH) 1,000 MG PREOP ONCALL PO (CKD) Gabapentin (NEURONTIN) 200 MG PREOP ONCALL PO (CKD) Lactated Ringer's (LACTATED RINGERS) 1,000 ML PREOP ONCALL IV Lidocaine HCl (LIDOCAINE HCL/PF) 2 ML PREOP ONCALL LOCAL Lidocaine HCl (LIDOCAINE HCL/PF) 2 ML PREOP ONCALL LOCAL Sodium Chloride (SODIUM CHLORIDE 0.9%) 500 ML PREOP ONCALL IV Sodium Chloride (SODIUM CHLORIDE 0.9%) 500 ML PREOP ONCALL IV Sodium Chloride (SODIUM CHLORIDE 0.9%) 1,000 ML PREOP ONCALL IV Sodium Chloride (SODIUM CHLORIDE) 5 ML ASDIR PRN IV Sodium Chloride (SODIUM CHLORIDE) 10 ML ASDIR PRN IV Sodium Chloride (SODIUM CHLORIDE 0.9%) 250 ML ASDIR PRN IV Meropenem (MEROPENEM) 500 MG Q6H IV Sterile Water (WATER FOR INJECTION) 10 MLCalcium Gluconate/Sodium Chloride (Calcium Gluconate 1 GM/NS 50 mL) 50 ML ONCE ONE IV (DC) Sodium Polystyrene Sulfonate (KAYEXELATE) 30 GM ONCE ONE PO (DC) Ceftaroline Fosamil (TEFLARO) 600 MG Q8H IV (DC) Sodium Chloride (SODIUM CHLORIDE 0.9%) 100 MLDaptomycin (CUBICIN 500MG) 700 MG Q24H IV (CKD) Sodium Chloride (SODIUM CHLORIDE 0.9%) 50 MLFamotidine (PEPCID) 20 MG BID PO Lorazepam (ATIVAN) 1 MG ONCE PRN IV Sodium Chloride (SODIUM CHLORIDE) 0 ASDIR PRN IV Insulin Glargine (Lantus/Semglee) 25 UNIT BEDTIME SUBQ (DC) Insulin Human Lispro (HUMALOG) 7 UNIT AC SUBQ Insulin Human Lispro (HUMALOG) 0 AC HS SUBQ Dextrose/Water (DEXTROSE 10% IN WATER) 125 ML ASDIR PRN IV (CKD) Dextrose/Water (DEXTROSE 10% IN WATER) 250 ML ASDIR PRN IV (CKD) Glucagon (GLUCAGON) 1 MG ASDIR PRN IM Dextrose/Water (Dextrose 10% 1,000 mL) 1,000 ML ASDIR IV Acetaminophen (TYLENOL) 650 MG Q6H PRN PRN PO Bisacodyl (DULCOLAX) 10 MG DAILY PRN PRN RECTAL Docusate Sodium (COLACE) 100 MG Q12H PRN PRN PO Ondansetron HCl (ZOFRAN) 4 MG Q6H PRN PRN IV Heparin Sodium (HEPARIN 5000 UNITS/ML) 5,000 UNIT Q8HR SUBQ Physical ExamGeneral appearance: alert, awake, orientedNeck: no bruit/NL carotids, no JVDCardiovascular: CV assessment: abnormal S1/S2, regular rate and rhythm, no ectopyRespiratory: clear to auscultation, no distressLower extremity: LE assessment: edemaNeuro/DIRECTOR OPERATING ROOM: alert, oriented X 3 Considered stroke alert: noWound/incision: Location:right footPsychiatry: normal affect, normal judgment/insight, normal mood ResultsFindings/Data:Laboratory Tests 08/28 08/28 08/27 08/27 08/27 0624 0420 2050 1825 1728Chemistry Sodium (134 - 147 mEq/L) 137 136 [...] (Auto) (14.0 - 32.0 %) 8.2 L Len[place] % (Auto) (4.8 - 9.0 %) 4.1 L Eos % (Auto) (0.3 - 3.7 %) 0.4 Baso % (Auto) (0.0 - 2.0 %) 0.1 Neut # (Auto) (2.0 - 7.6 x10 3/uL) 11.92 H Lymph # (Auto) (1.0 - 3.8 x10 3/uL) 1.13 Lenoir # (Auto) (0.1 - 0.8 x10 3/uL) 0.57 Eos # (Auto) (0.0 - 0.2 x10 3/uL) 0.05 Baso # (Auto) (0.0 - 0.2 x10 3/uL) 0.01 Abs Immat Gran (auto) (0.00 - 0.03 x10 3/uL) 0.07 H Add Manual Diff NO Immature Gran % (0.0 - 2.0 %) 0.5 Nucleated RBC % (0 - 0 %) 0.0 Nucleated RBCs # (Man) (0.0 - 0.1 x10 3/uL) 0.00 Laboratory Tests 08/28 0420 Chemistry Magnesium (1.80 - 2.40 mg/dL) 1.89 Radiology data:Recent Impressions:ULTRASOUND - DUP VEIN UNI/LTD 08/28 856 Report Impression - Status: SIGNED Entered: 08/28/202277 IMPRESSION: 1. No evidence of venous thrombosis involving left lower extremity. 2. Approximately 8 x 2 x 1.3 cm complex fluid collection along the left upper calf probably representing a small hematoma. Impression By: [id number] - Roger Parra M.D. Diagnosis, Assessment Plan Free Text DxA P NotesFree Text DxA P Notes:Impression: 1. Preop eval/cardiac clearance2. Infected right foot gas gangrene3. DKA4. Sepsis5. Hypertension 6. Anemia Recommendation: Patient presented for evaluation of altered mental status, weakness and elevatedblood sugar. Diagnosed with DKA and sepsis. 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 Known cardiac history of hypertension and hyperlipidemia. Denies prior history of CAD, CHF or arrhythmia. EKG abnormal, NSR with anterior infarct. Vital signs stable. No prior cardiac work-up. -Check echocardiogram-Monitor telemetry for arrhythmia-Monitor blood pressure trend-Wound care and IV antibiotic therapy-Supportive care 08/19: Patient doing better postop, blood pressure control, currently in sinus rhythm, lower extremity artery Doppler negative for any significant PAD, continue current management from primary team and podiatry service, continue monitor on telemetry for arrhythmia postop, supportive care, discussed with patient and family as well as RN, will follow. 08/21: Patient overall doing well, awake and alert today. Blood pressure well controlled. Currently in sinus rhythm to sinus tachycardia, will continue to monitor. Echocardiogram shows LVEF of 55 to 69%, no regional wall motion abnormalities, grade 1 diastolic dysfunction, and mildly dilated LA. continue antibiotic therapy and wound care. Supportive care. Plan of care discussed with patient, RN and Dr. Parham. 08/22: No Significant changes from cardiac standpoint. Vital signs stable. Telemetry monitoring reviewed, sinus rhythm to sinus tachycardia. We will continue monitor, sinus tachycardia likely related to underlying infection. Continue wound care and antibiotic therapy. Supportive care. Plan of care discussed with patient, RN and Dr. Parham. 08/23: Stable cardiac status. Blood pressure and heart rate well controlled. Continue monitor telemetry. Continue wound care. Plan to transfer to floor. Supportive care. Plan of care discussed with patient, RN and Dr. Parham. 08/24: Patient overall doing well, remains stable from cardiac standpoint. Blood pressure and heart rate well controlled. No new events noted on telemetrymonitoring. Remains in sinus rhythm by physical examination. Continue wound care. Supportive care. Plan of care discussed with patient, RN and Dr. Parham. 08/25: Remain stable from cardiac standpoint. Blood pressure well controlled. Currently in sinus rhythm by physical examination. Possible plan for another wound debridement today. Pain management and supportive care. Plan of care discussed with patient, RN and Dr. Parham. 08/26: Patient remains in sinus rhythm. Blood pressure well controlled. Plan for aspiration of prostatic cyst today. Plan for right BKA on . We will continue monitor patient postoperatively. Continue antibiotic therapy. Supportive care. Plan of care discussed with patient, RN and Dr. Parham. 08/27: Patient doing well status post aspiration of prostatic abscess and TURP. Currently on continuous bladder irrigation. Hemodynamically stable. Blood pressure and heart rate well controlled. Remains in normal sinus rhythm. Plan for right BKA tomorrow. Cleared from cardiac standpoint to proceed with plannedsurgery. Supportive care. Plan of care discussed with patient, RN and Dr. Parham. 08/28: Stable cardiac status. Plan for right BKA today. Continue antibiotic therapy and wound care. Will monitor patient postoperatively for arrhythmia. Continue monitor telemetry. Pain management and supportive care. Plan of care discussed with RN and Dr. Parham. Napoleon Parham 08/29/22 3975:Diagnosis, Assessment PlanAdditional comments:Patient was seen and examined at bedside, agree with above assessment and plan as documented by nurse practitioner. Will follow. at 1836 at 1732 RPT #:[id number] OF REPORTPRProgress rpba5066-76-78I62:52:00G.[id number] able for patient brygUNXORFHNRZUURS7441-26-25B58:36:35 [facility] 2022-08-28 08:03:00 [id number] ASqCjS+YnRmwq0G0SSRlYRQyYWRQS J8Uf5+9vz7/N+47EeoyOdr1UIZc7867-19-63I16:03:00 [facility] HospitalHospitalist Progress NoteREPORT#:[id number] REPORT STATUS: SignedDATE:08/28/22 TIME: 08 PATIENT: KARMA ROWLAND UNIT #: [id number]#: [id number] [address] AGE: 56 SEX: M ATTEND: Wilbert Ramires MDADM AUTHOR: Wilbert Ramires MD * ALL edits or amendments must be made on the electronic/computer document * SubjectiveChief complaint:AMS and right foot infection. s/p extensivedebridement. (+) pain in left leg x3 days Review of SystemsAll systems rev neg: except as noted Objective GeneralVS/I O:Vital Signs: Date Time Temp Pulse Resp B/P B/P Pulse O2 O2 Flow FiO2 Mean Ox Delivery Rate 08/28 0545 87 14 115/60 82 94 08/28 0631 86 21 107/54 78 94 / 0615 94 25 129/63 91 96 /06 0600 90 11 124/62 87 95 /06 0545 90 10 125/62 88 95 /06 0530 90 14 128/62 89 95 / 0515 91 10 125/64 87 95 /06 0500 89 7 126/66 88 95 /06 0445 90 12 128/65 89 94 /06 0430 90 10 131/63 90 94 04/06 [...] 0700: 04/06 0700 04/05 1900 Intake Total 77932.00 Output Total 98497 Balance 290.00 Intake, IV 160.00 Intake, Oral 1380 Intake, Other 91370 Number 2 Bowel Movements Output, Other 91830 Patient 74.9 kg Weight Weight Bed scale Measurement Method PATIENT WEIGHT: Weight (lb): 165Weight (oz): 2.02Weight (kg): 74.900 Medications:Active Meds + DC'd Last 24 HrsInsulin Glargine (Lantus/Semglee) 15 UNIT BEDTIME SUBQ Acetaminophen (TYLENOL EXTRA STRENGTH) 1,000 MG PREOP ONCALL PO (CKD) Gabapentin (NEURONTIN) 200 MG PREOP ONCALL PO (CKD) Lactated Ringer's (LACTATED RINGERS) 1,000 ML PREOP ONCALL IV Lidocaine HCl (LIDOCAINE HCL/PF) 2 ML PREOP ONCALL LOCAL Lidocaine HCl (LIDOCAINE HCL/PF) 2 ML PREOP ONCALL LOCAL Sodium Chloride (SODIUM CHLORIDE 0.9%) 500 ML PREOP ONCALL IV Sodium Chloride (SODIUM CHLORIDE 0.9%) 500 ML PREOP ONCALL IV Sodium Chloride (SODIUM CHLORIDE 0.9%) 1,000 ML PREOP ONCALL IV Sodium Chloride (SODIUM CHLORIDE) 5 ML ASDIR PRN IV Sodium Chloride (SODIUM CHLORIDE) 10 ML ASDIR PRN IV Sodium Chloride (SODIUM CHLORIDE 0.9%) 250 ML ASDIR PRN IV Meropenem (MEROPENEM) 500 MG Q6H IV Sterile Water (WATER FOR INJECTION) 10 MLCalcium Gluconate/Sodium Chloride (Calcium Gluconate 1 GM/NS 50 mL) 50 ML ONCE ONE IV (DC) Sodium Polystyrene Sulfonate (KAYEXELATE) 30 GM ONCE ONE PO (DC) Ceftaroline Fosamil (TEFLARO) 600 MG Q8H IV (DC) Sodium Chloride (SODIUM CHLORIDE 0.9%) 100 MLDaptomycin (CUBICIN 500MG) 700 MG Q24H IV (CKD) Sodium Chloride (SODIUM CHLORIDE 0.9%) 50 MLFamotidine (PEPCID) 20 MG BID PO Lorazepam (ATIVAN) 1 MG ONCE PRN IV Sodium Chloride (SODIUM CHLORIDE) 0 ASDIR PRN IV Insulin Glargine (Lantus/Semglee) 25 UNIT BEDTIME SUBQ (DC) Insulin Human Lispro (HUMALOG) 7 UNIT AC SUBQ Insulin Human Lispro (HUMALOG) 0 AC HS SUBQ Dextrose/Water (DEXTROSE 10% IN WATER) 125 ML ASDIR PRN IV (CKD) Dextrose/Water (DEXTROSE 10% IN WATER) 250 ML ASDIR PRN IV (CKD) Glucagon (GLUCAGON) 1 MG ASDIR PRN IM Dextrose/Water (Dextrose 10% 1,000 mL) 1,000 ML ASDIR IV Acetaminophen (TYLENOL) 650 MG Q6H PRN PRN PO Bisacodyl (DULCOLAX) 10 MG DAILY PRN PRN RECTAL Docusate Sodium (COLACE) 100 MG Q12H PRN PRN PO Ondansetron HCl (ZOFRAN) 4 MG Q6H PRN PRN IV Heparin Sodium (HEPARIN 5000 UNITS/ML) 5,000 UNIT Q8HR SUBQ Physical ExamGeneral appearance: alert, awake, orientedHead/Eyes: normocephalicENT: moist mucosal membranesNeck: no JVDCardiovascular: regular rate rhythm, no heaveRespiratory: aerating well, clear to auscultation, symmetric expansion, no distressAbdomen: non-tender, normal bowel sounds, soft, no distentionGenitourinary: no bladder distentionExtremities: R foot in dressingNeuro/DIRECTOR OPERATING ROOM: alert, oriented X 3, 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 Considered stroke alert: noSkin: no rashPsychiatry: normal affect, normal judgment/insight, normal mood ResultsFindings/Data:Laboratory Tests 08/28 08/28 08/27 08/27 08/27 0624 0420 2050 1825 1728Chemistry Sodium (134 - 147 mEq/L) 137 136 [...] L Ionized Calcium Mitzi (1.09 - 1.30 1.12MMOL/L) Phosphorus (2.5 - 4.9 MG/DL) 4.8 Magnesium (1.80 - 2.40 mg/dL) 1.89 Total Bilirubin (0.0 - 1.0 mg/dL) 0.40 AST (15 - 37 IUnit/L) 17 ALT (30 - 65 IUnit/L) 9 L Total Alk Phosphatase (20 - 125 111IUnit/L) Total Protein (6.4 - 8.2 g/dL) 5.8 [...] (Auto) (14.0 - 32.0 %) 8.2 L [place] % (Auto) (4.8 - 9.0 %) 4.1 L Eos % (Auto) (0.3 - 3.7 %) 0.4 Baso % (Auto) (0.0 - 2.0 %) 0.1 Neut # (Auto) (2.0 - 7.6 x10 3/uL) 11.92 H Lymph # (Auto) (1.0 - 3.8 x10 3/uL) 1.13 [place] # (Auto) (0.1 - 0.8 x10 3/uL) 0.57 Eos # (Auto) (0.0 - 0.2 x10 3/uL) 0.05 Baso # (Auto) (0.0 - 0.2 x10 3/uL) 0.01 Abs Immat Gran (auto) (0.00 - 0.03 x10 3/uL) 0.07 H Add Manual Diff NO Immature Gran % (0.0 - 2.0 %) 0.5 Nucleated RBC % (0 - 0 %) 0.0 Nucleated RBCs # (Man) (0.0 - 0.1 x10 3/uL) 0.00 Diagnosis, Assessment Plan Free Text DxA P NotesFree text DxA P notes:DKADM 2, poorly controlledsevere gas gangrene, right foot/necrotizing fascitisMRSA bacteremiaAKIsevere hyponatremia likely due to combination of severe hyperglycemia and dehydration from DKAsepsis due to foot infectionDM neuropathyHTNanemia, acute due to blood loss Plans: - [...] planning for I D today. Surgery on standby if needed to further debride his lower leg vs amputation. - WBC improving - will type and cross for blood and transfuse if less than 7 gms - d.w at [...] wean off insulin drip. Subq insulin and sliding scale. 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 will likely need wound vac at some point - off [...] transfuse blood for anemia. no overt blood loss - continue IV antibiotics - mobilize - pulse lavage to wound. ? wound vac - continue to monitor blood sugars - floor transfer - d/w 08/24/2022 - follow hgb and transfuse as needed - IV antibiotics - anesthesia consult for MRI - blood sugars ok - pulse lavage - await podiatry eval for wound care - ? wound vac - d.w at bedside 08/25/22Continue abx (Dapto and Teflaro) as per IDUpdated Urology on MRI results, Dr. Du will review images and discuss with family for possible prostate/seminal vesicle abscessCont wound care as per Podiatry, may have debridement today BP and BS well controlled K+ high, repeat levelHgb 7.3 stableDiscussed with at bedside 08/26/2022 - hgb low. will transfuse 2 units - d.w Dr. Pedersen - patient has lost so much tissues in his foot that his potential for wound closure and usability of his foot is poor. Recommendations made to proceed with BKA - continue to monitor blood sugars - IV antibitoics - wound care - urology planning for aspiration of prostatic cyst seen on MRI. PSA normal - OOB 08/27/22s/p transfusion planned for BKA IV antibiotics Wound care DM - managed with insulin DVT prophylaxis 08/28/2022 - noted left leg swelling and pain - patient on Heparin SQ for VTE. will order stat venous US - planning for right BKA today - continue IV antibiotics per ID - follow blood sugars closely - will need PT/OT and possible rehab post surgery - d/w at bedside at 0806 RPT #:[id number] OF REPORTPRProgress [id number]:03:00G.[id number] able for patient tivwXSVXAPNIJRHNJG2649-68-12Y24:06:32 [facility] 2022-08-27 20:10:00 [id number]/R gEXa+/XSktgE78x3LZD2Kw1seN6I0 CnN29Av57XLnF54Sh3qnv76j2Zz8876-68-41X40:10:00 [facility])Podiatry Progress NoteREPORT#:[id number] REPORT STATUS: SignedDATE:08/27/22 TIME: 2009 PATIENT: KARMA ROWLAND UNIT #: [id number]#: [id number] [facility] AGE: 56 SEX: M ATTEND[facility]ires [facility] AUTHOR: Liam Pedersen DPM * ALL edits or amendments must be made on the electronic/computer document * SubjectiveChief complaint:seen at bedside,. family memebers next to him denies having any pain foot covered and protected and offloaded drainage noted serosang. increased warmthPatient reports: no confusion, no cough, no dizziness, no fever, no heartburn, no itchingComments: changes position of joan wraps left ankleto left foot Objective GeneralVS:Last Documented: Result Date Time Pulse Ox 93 08/27 190 B/P 158/72 08/27 1900 B/P Mean 104 08/27 1900 Pulse 87 08/27 1900 Resp 15 08/27 1900 Temp 36.9 08/27 1600 O2 Delivery Room air 08/26 2100 O2 Flow Rate 6 08/26 2038 PATIENT WEIGHT: Weight (lb): 157Weight (oz): 10.09Weight (kg): 71.500 Medications:Active Meds + DC'd Last 24 HrsInsulin Glargine (Lantus/Semglee) 15 UNIT BEDTIME SUBQ Acetaminophen (TYLENOL EXTRA STRENGTH) 1,000 MG PREOP ONCALL PO (CKD) Gabapentin (NEURONTIN) 200 MG PREOP ONCALL PO (CKD) Lactated Ringer's (LACTATED RINGERS) 1,000 ML PREOP ONCALL IV Lidocaine HCl (LIDOCAINE HCL/PF) 2 ML PREOP ONCALL LOCAL Lidocaine HCl (LIDOCAINE HCL/PF) 2 ML PREOP ONCALL LOCAL Sodium Chloride (SODIUM CHLORIDE 0.9%) 500 ML PREOP ONCALL IV Sodium Chloride (SODIUM CHLORIDE 0.9%) 500 ML PREOP ONCALL IV Sodium Chloride (SODIUM CHLORIDE 0.9%) 1,000 ML PREOP ONCALL IV Sodium Chloride (SODIUM CHLORIDE) 5 ML ASDIR PRN IV Sodium Chloride (SODIUM CHLORIDE) 10 ML ASDIR PRN IV Sodium Chloride (SODIUM CHLORIDE 0.9%) 250 ML ASDIR PRN IV Meropenem (MEROPENEM) 500 MG Q6H IV Sterile Water (WATER FOR INJECTION) 10 MLCalcium Gluconate/Sodium Chloride (Calcium Gluconate 1 GM/NS 50 mL) 50 ML ONCE ONE IV (DC) Sodium Polystyrene Sulfonate (KAYEXELATE) 30 GM ONCE ONE PO (DC) Diphenhydramine HCl (BENADRYL) 12.5 MG PACU ONCE PRN IV (DC) Fentanyl Citrate (SUBLIMAZE) 100 MCG PACU Q10MIN PRN PRN IV (DC) Fentanyl Citrate (SUBLIMAZE) 50 MCG PACU Q10MIN PRN PRN IV (DC) Hydralazine HCl (APRESOLINE) 5 MG PACU Q10MIN PRN PRN IV (DC) Hydrocodone Bitart/Acetaminophen (NORCO 5/325) 1 TAB PACU ONCE PO (DC) Hydromorphone HCl (DILAUDID) 1 MG PACU Q10MIN PRN PRN IV (DC) Hydromorphone HCl (DILAUDID) 0.5 MG PACU Q5MIN PRN PRN IV (DC) Insulin Human Lispro (HUMALOG) 0 PACU ONCE PRN SUBQ (DC) Labetalol HCl (LABETALOL HCL) 5 MG PACU Q10MIN PRN PRN IV (DC) Lactated Ringer's (LACTATED RINGERS) 1,000 ML .Q24H IV (DC) Meperidine HCl (MEPERIDINE HCL/PF) 12.5 MG PACU ONCE PRN IV (DC) Morphine Sulfate (morphine SULFATE) 2 MG PACU Q10MIN PRN PRN IV (DC) Ondansetron HCl (ZOFRAN) 4 MG PACU ONCE PRN IV (DC) Promethazine HCl (PHENERGAN) 25 MG PACU ONCE PRN PO (DC) Ropivacaine (NAROPIN 0.5% 150 MG/30mL) 150 MG ASDIR PRN LOCAL (DC) Tramadol HCl (ULTRAM) 50 MG PACU ONCE PO (DC) Ceftaroline Fosamil (TEFLARO) 600 MG Q8H IV (DC) Sodium Chloride (SODIUM CHLORIDE 0.9%) 100 MLDaptomycin (CUBICIN 500MG) 700 MG Q24H IV (CKD) Sodium Chloride (SODIUM CHLORIDE 0.9%) 50 MLFamotidine (PEPCID) 20 MG BID PO Lorazepam (ATIVAN) 1 MG ONCE PRN IV Sodium Chloride (SODIUM CHLORIDE) 0 ASDIR PRN IV Insulin Glargine (Lantus/Semglee) 25 UNIT BEDTIME SUBQ (DC) Insulin Human Lispro (HUMALOG) 7 UNIT AC SUBQ Insulin Human Lispro (HUMALOG) 0 AC HS SUBQ Dextrose/Water (DEXTROSE 10% IN WATER) 125 ML ASDIR PRN IV (CKD) Dextrose/Water (DEXTROSE 10% IN WATER) 250 ML ASDIR PRN IV (CKD) Glucagon (GLUCAGON) 1 MG ASDIR PRN IM Dextrose/Water (Dextrose 10% 1,000 mL) 1,000 ML ASDIR IV Acetaminophen (TYLENOL) 650 MG Q6H PRN PRN PO Bisacodyl (DULCOLAX) 10 MG DAILY PRN PRN RECTAL Docusate Sodium (COLACE) 100 MG Q12H PRN PRN PO Ondansetron HCl (ZOFRAN) 4 MG Q6H PRN PRN IV Heparin Sodium (HEPARIN 5000 UNITS/ML) 5,000 UNIT Q8HR SUBQ I O:24 hour I O ending at 0700: 04/05 0700 04/04 1900 Intake Total 41503.00 950.00 Output Total 63747 850 Balance -1845.00 100.00 Intake, IV 805.00 250.00 Intake, Oral 250 Intake, Other 9900 Intake, 700 Packed Cells Output, Other 9850 Output, Urine 2950 850 Patient 71.5 kg Weight Weight Bed scale Measurement Method Dietitian nutrition assessmentThe data set between the solid lines has been imported from the dietitian's assessment. BMI Calculated: 25.4Nutrition related diagnosis: Nutrition diagnosis details: Nutrition problem: Nutrition etiology: Nutrition signs and symptoms: Nutrition prescription: Dietitian name: Assessment completed: Physical ExamGeneral appearance: alert, awake, orientedWound/incision: Location:Right foot to right ankle. DP and PT pulses are very weak essentially nonpalpable. There is severe edema of the right foot to the right ankle, better. There is erythema of the right foot to the right ankle, much better. Not really any ascending lymphangitis past there. Crepitation is at the medial right hindfoot and the dorsal right midfoot are significantly less. There is no longer crepitation at the lateral right ankle. There is some bullae that are peeling medial and lateral. Sensation is greatly decreased on the right foot. base of three wounds fibrotic. sero purulent drainage. bones and tendons exposed. Left foot has no ulcers but has OA changes at ankle with some chronic edema.LE vascular pulse assess:Nonpalpable R posterior tibialis, Nonpalpable R dorsalis pedis Considered stroke alert: no ResultsFindings/Data:Laboratory Tests: 08/27 08/27 08/27 08/27 08/27 1825 1728 1147 0824 0533Chemistry Sodium (134 - 147 mEq/L) 136 137 [...] (Auto) (14.0 - 32.0 %) 7.0 L [place] % (Auto) (4.8 - 9.0 %) 3.3 L Eos % (Auto) (0.3 - 3.7 %) 0.3 Baso % (Auto) (0.0 - 2.0 %) 0.1 Neut # (Auto) (2.0 - 7.6 x10 3/uL) 14.14 H Lymph # (Auto) (1.0 - 3.8 x10 3/uL) 1.11 [place] # (Auto) (0.1 - 0.8 x10 3/uL) 0.52 Eos # (Auto) (0.0 - 0.2 x10 3/uL) 0.04 Baso # (Auto) (0.0 - 0.2 x10 3/uL) 0.02 Abs Immat Gran (auto) (0.00 - 0.03 x10 3/uL) 0.10 H Add Manual Diff NO Immature Gran % (0.0 - 2.0 %) 0.6 Nucleated RBC % (0 - 0 %) 0.0 Nucleated RBCs # (Man) (0.0 - 0.1 x10 3/uL) 0.00 Diagnosis, Assessment PlanFree Text A P:Gas gangrene right foot and right ankle (Gas in tissues/abscess)Diabetes with peripheral neuropathyMinimal peripheral vascular diseaseLeukocytosisSepsisDKAEdema and arthritis left ankle s/p surgical debridement and washoutCAT scan shows gas in 3 locationsX-rays right foot show no osseous changepacking with Iodoform.IV antibioticsMonitor leukocytosisNIAS: minimal PVD right08/18 wound culture: MRSA (This one is not accurate, it is of skin that was intact)08/19 OR culture: MRSAblood cultures: MRSAOffloading bootICU for nowpulse lavage by physical therapyace wrap compression left ankleMRI: osteo plan for BKA right with Dr. Leroy tomorrow at 2012 RPT #:[id number] OF REPORTPRProgress [id number]:10:00G.[id number] able for patient jeteVEQNZOZQTMVZRD5876-88-56U90:12:34 [facility] 2022-08-27 18:19:00 [id number] 2txTTz0pjonruCyg9XN6kSNHVDWpC 4eaOHulpNzQ1L5V1YU/7ituFO8c0867-35-96I68:19:00 [facility] ([facility])Endocrinology Progress NoteREPORT#:[id number] REPORT STATUS: SignedDATE:08/27/22 TIME: 1818 PATIENT: KARMA ROWLAND UNIT #: [id number]#: [id number] [facility] AGE: 56 SEX: M ATTEND: Wilbert Ramires [facility] AUTHOR: Braxton Chapin MD * ALL edits or amendments must be made on the electronic/computer document * SubjectivePatient reports: no complaints Objective GeneralVS:Last Documented: Result Date Time Temp 36.7 04 1200 Pulse Ox 98 / 0545 B/P 138/68 04/ 0545 B/P Mean 94 08/27 0545 Pulse 83 / 0545 Resp 15 08/27 0545 O2 Delivery Room air 08/26 2100 O2 Flow Rate 6 08/26 2038 PATIENT WEIGHT: Weight (lb): 157Weight (oz): 10.09Weight (kg): 71.500 Medications:Active Meds + DC'd Last 24 HrsMeropenem (MEROPENEM) 500 MG Q6H IV Sterile Water (WATER FOR INJECTION) 10 MLCalcium Gluconate/Sodium Chloride (Calcium Gluconate 1 GM/NS 50 mL) 50 ML ONCE ONE IV (DC) Sodium Polystyrene Sulfonate (KAYEXELATE) 30 GM ONCE ONE PO (DC) Midazolam HCl (VERSED) 0 .STK-MED ONE .ROUTE (DC) Diphenhydramine HCl (BENADRYL) 12.5 MG PACU ONCE PRN IV (DC) Fentanyl Citrate (SUBLIMAZE) 100 MCG PACU Q10MIN PRN PRN IV (DC) Fentanyl Citrate (SUBLIMAZE) 50 MCG PACU Q10MIN PRN PRN IV (DC) Hydralazine HCl (APRESOLINE) 5 MG PACU Q10MIN PRN PRN IV (DC) Hydrocodone Bitart/Acetaminophen (NORCO 5/325) 1 TAB PACU ONCE PO (DC) Hydromorphone HCl (DILAUDID) 1 MG PACU Q10MIN PRN PRN IV (DC) Hydromorphone HCl (DILAUDID) 0.5 MG PACU Q5MIN PRN PRN IV (DC) Insulin Human Lispro (HUMALOG) 0 PACU ONCE PRN SUBQ (DC) Labetalol HCl (LABETALOL HCL) 5 MG PACU Q10MIN PRN PRN IV (DC) Lactated Ringer's (LACTATED RINGERS) 1,000 ML .Q24H IV (DC) Meperidine HCl (MEPERIDINE HCL/PF) 12.5 MG PACU ONCE PRN IV (DC) Morphine Sulfate (morphine SULFATE) 2 MG PACU Q10MIN PRN PRN IV (DC) Ondansetron HCl (ZOFRAN) 4 MG PACU ONCE PRN IV (DC) Promethazine HCl (PHENERGAN) 25 MG PACU ONCE PRN PO (DC) Ropivacaine (NAROPIN 0.5% 150 MG/30mL) 150 MG ASDIR PRN LOCAL (DC) Tramadol HCl (ULTRAM) 50 MG PACU ONCE PO (DC) Dexamethasone Sodium Phosphate (DECADRON) 0 .STK-MED ONE .ROUTE (DC) Fentanyl Citrate (SUBLIMAZE) 0 .STK-MED ONE .ROUTE (DC) Lidocaine HCl (XYLOCAINE) 0 .STK-MED ONE .ROUTE (DC) Midazolam HCl (VERSED) 0 .STK-MED ONE .ROUTE (DC) Ondansetron HCl (ZOFRAN) 0 .STK-MED ONE .ROUTE (DC) Propofol (DIPRIVAN 200MG/20ML INJECTION) 20 ML .STK-MED ONE IV (DC) Ceftaroline Fosamil (TEFLARO) 600 MG Q8H IV (DC) Sodium Chloride (SODIUM CHLORIDE 0.9%) 100 MLDaptomycin (CUBICIN 500MG) 700 MG Q24H IV (CKD) Sodium Chloride (SODIUM CHLORIDE 0.9%) 50 MLFamotidine (PEPCID) 20 MG BID PO Lorazepam (ATIVAN) 1 MG ONCE PRN IV Sodium Chloride (SODIUM CHLORIDE) 0 ASDIR PRN IV Insulin Glargine (Lantus/Semglee) 25 UNIT BEDTIME SUBQ Insulin Human Lispro (HUMALOG) 7 UNIT AC SUBQ Insulin Human Lispro (HUMALOG) 0 AC HS SUBQ Dextrose/Water (DEXTROSE 10% IN WATER) 125 ML ASDIR PRN IV (CKD) Dextrose/Water (DEXTROSE 10% IN WATER) 250 ML ASDIR PRN IV (CKD) Glucagon (GLUCAGON) 1 MG ASDIR PRN IM Dextrose/Water (Dextrose 10% 1,000 mL) 1,000 ML ASDIR IV Acetaminophen (TYLENOL) 650 MG Q6H PRN PRN PO Bisacodyl (DULCOLAX) 10 MG DAILY PRN PRN RECTAL Docusate Sodium (COLACE) 100 MG Q12H PRN PRN PO Ondansetron HCl (ZOFRAN) 4 MG Q6H PRN PRN IV Heparin Sodium (HEPARIN 5000 UNITS/ML) 5,000 UNIT Q8HR SUBQ Physical ExamGeneral appearance: alert, awake Diagnosis, Assessment PlanHospital course to date:Laboratory Tests: 08/27 08/27 08/27 08/27 1728 1147 [...] (Auto) (14.0 - 32.0 %) 7.0 L [place] % (Auto) (4.8 - 9.0 %) 3.3 L Eos % (Auto) (0.3 - 3.7 %) 0.3 Baso % (Auto) (0.0 - 2.0 %) 0.1 Neut # (Auto) (2.0 - 7.6 x10 3/uL) 14.14 H Lymph # (Auto) (1.0 - 3.8 x10 3/uL) 1.11 [place] # (Auto) (0.1 - 0.8 x10 3/uL) 0.52 Eos # (Auto) (0.0 - 0.2 x10 3/uL) 0.04 Baso # (Auto) (0.0 - 0.2 x10 3/uL) 0.02 Abs Immat Gran (auto) (0.00 - 0.03 x10 3/uL) 0.10 H Add Manual Diff NO Immature Gran % (0.0 - 2.0 %) 0.6 Nucleated RBC % (0 - 0 %) 0.0 Nucleated RBCs # (Man) (0.0 - 0.1 x10 3/uL) 0.00 Microbiology: Date/Time Procedure - Status Source Growth [...] (Auto) (14.0 - 32.0 %) 7.4 L [place] % (Auto) (4.8 - 9.0 %) 3.9 L Eos % (Auto) (0.3 - 3.7 %) 0.5 Baso % (Auto) (0.0 - 2.0 %) 0.1 Neut # (Auto) (2.0 - 7.6 x10 3/uL) 15.49 H Lymph # (Auto) (1.0 - 3.8 x10 3/uL) 1.31 [place] # (Auto) (0.1 - 0.8 x10 3/uL) 0.69 Eos # (Auto) (0.0 - 0.2 x10 3/uL) 0.08 Baso # (Auto) (0.0 - 0.2 x10 3/uL) 0.01 Abs Immat Gran (auto) (0.00 - 0.03 x10 3/uL) 0.11 H Add Manual Diff NO Immature Gran % (0.0 - 2.0 %) 0.6 Nucleated RBC % (0 - 0 %) 0.0 Nucleated RBCs # (Man) (0.0 - 0.1 x10 3/uL) 0.00 Laboratory Tests: 08/25 08/25 08/25 08/25 1723 1111 1044 1044 Chemistry Potassium (3.4 - 5.0 mEq/L) 4.5 POC Glucose (70 - 110 MG/DL) 132 H 143 H Total Creatine Kinase (46 - 171 Units/L) 17 L Urines Urine Color (YEL/STRAW) YELLOW Urine Appearance (CLEAR) TURBID H Urine pH (5.0 - 7.0) 5.0 Ur Specific [place] (1.005 - 1.030) 1.012 Urine Protein (NEGATIVE) [...] (Auto) (14.0 - 32.0 %) 8.1 L [place] % (Auto) (4.8 - 9.0 %) 4.3 L Eos % (Auto) (0.3 - 3.7 %) 0.5 Baso % (Auto) (0.0 - 2.0 %) 0.1 Neut # (Auto) (2.0 - 7.6 x10 3/uL) 15.44 H Lymph # (Auto) (1.0 - 3.8 x10 3/uL) 1.45 [place] # (Auto) (0.1 - 0.8 x10 3/uL) 0.77 Eos # (Auto) (0.0 - 0.2 x10 3/uL) 0.09 Baso # (Auto) (0.0 - 0.2 x10 3/uL) 0.02 Abs Immat Gran (auto) (0.00 - 0.03 x10 3/uL) 0.13 H Add Manual Diff NO Immature Gran % (0.0 - 2.0 %) 0.7 Nucleated RBC % (0 - 0 %) 0.0 Nucleated RBCs # (Man) (0.0 - 0.1 x10 3/uL) 0.00 Microbiology: Date/Time Procedure - Status Source Growth 08/25 1044 Urine Culture - WKST URINE 08/25 1044 Blood Culture - RECD BLOOD 08/25 1044 Blood Culture - RECD BLOOD Laboratory Tests: 08/20 08/20 08/20 08/20 08/20 1107 0756 0647 0554 0454Chemistry Sodium (134 - 147 mEq/L) 137 Potassium [...] L Albumin (3.4 - 5.0 g/dL) 2.00 LHematology WBC (4.5 - 11.0 x10 3/uL) 22.8 [...] (Auto) (14.0 - 32.0 %) 4.8 L [place] % (Auto) (4.8 - 9.0 %) 2.9 L Eos % (Auto) (0.3 - 3.7 %) 0.0 L Baso % (Auto) (0.0 - 2.0 %) 0.2 Neut # (Auto) (2.0 - 7.6 x10 3/uL) 19.90 H Lymph # (Auto) (1.0 - 3.8 x10 3/uL) 1.10 [place] # (Auto) (0.1 - 0.8 x10 3/uL) 0.66 Eos # (Auto) (0.0 - 0.2 x10 3/uL) 0.00 Baso # (Auto) (0.0 - 0.2 x10 3/uL) 0.04 Abs Immat Gran (auto) (0.00 - 0.03 1.12 Hx10 3/uL) Add Manual Diff NO Immature Gran % (0.0 - 2.0 %) 4.9 H Nucleated RBC % (0 - 0 %) 0.0 Nucleated RBCs # (Man) (0.0 - 0.1 0.00x10 3/uL) 08/20 08/20 08/19 08/19 08/19 0259 [...] L 08/19 08/19 08/19 08/19 08/19 2223 2130 2014 172 1652Chemistry Sodium (134 - 147 mEq/L) 133 L [...] 2.03 Albumin (3.4 - 5.0 g/dL) 1.40 LHematology WBC (4.5 - 11.0 x10 3/uL) 20.3 [...] (Auto) (14.0 - 32.0 %) 3.8 L [place] % (Auto) (4.8 - 9.0 %) 3.7 L Eos % (Auto) (0.3 - 3.7 %) 0.0 L Baso % (Auto) (0.0 - 2.0 %) 0.3 Neut # (Auto) (2.0 - 7.6 x10 3/uL) 17.97 H Lymph # (Auto) (1.0 - 3.8 x10 3/uL) 0.76 L [place] # (Auto) (0.1 - 0.8 x10 3/uL) 0.74 Eos # (Auto) (0.0 - 0.2 x10 3/uL) 0.00 Baso # (Auto) (0.0 - 0.2 x10 3/uL) 0.07 Abs Immat Gran (auto) (0.00 - 0.03 0.71 Hx10 3/uL) Add Manual Diff NO Immature Gran % (0.0 - 2.0 %) 3.5 H Nucleated RBC % (0 - 0 %) 0.0 Nucleated RBCs # (Man) (0.0 - 0.1 0.00x10 3/uL) 08/19 08/19 1622 1601 Chemistry POC Glucose (70 - 110 MG/DL) 232 H Urines Urine Color (YEL/STRAW) YELLOW Urine Appearance (CLEAR) SL CLOUDY Urine pH (5.0 - 7.0) 5.0 Ur Specific [place] (1.005 - 1.030) 1.013 Urine Protein (NEGATIVE) [...] (Auto) (14.0 - 32.0 %) 4.3 L [place] % (Auto) (4.8 - 9.0 %) 3.1 L Eos % (Auto) (0.3 - 3.7 %) 0.0 L Baso % (Auto) (0.0 - 2.0 %) 0.3 Neut # (Auto) (2.0 - 7.6 x10 3/uL) 19.17 H Lymph # (Auto) (1.0 - 3.8 x10 3/uL) 0.91 L [place] # (Auto) (0.1 - 0.8 x10 3/uL) 0.67 Eos # (Auto) (0.0 - 0.2 x10 3/uL) 0.01 Baso # (Auto) (0.0 - 0.2 x10 3/uL) 0.07 Abs Immat Gran (auto) (0.00 - 0.03 x10 3/uL) 0.51 H Add Manual Diff NO Immature Gran % (0.0 - 2.0 %) 2.4 H Nucleated RBC % (0 - 0 %) 0.0 Nucleated RBCs # (Man) (0.0 - 0.1 x10 3/uL) 0.00 08/18 08/18 08/18 08/18 2246 2157 1854 [...] 08/19 1209 Wound Culture - RES ABSCESS 08/190 Anaerobic Culture - RES ABSCESS 08/19 1209 Gram Stain - RES ABSCESS Recent Impressions:ULTRASOUND - DUP LE ART UNI/LTD 08/19 0950 Report Impression - Status: SIGNED Entered: 08/19/2022 1056 IMPRESSION: No sonographic evidence for flow-limiting stenosis in the right lower extremity arterial system. Impression By: [email or web address] - Abraham Ross M.D. Laboratory Tests: 08/18 08/18 08/18 08/18 08/18 1430 1430 1404 1309 1203Chemistry Sodium (134 - 147 mEq/L) 131 L [...] 20.0 L Cholesterol/HDL Ratio (3.43 - 4.97 4.00RATIO) TSH (0.42 - 5.47) 0.96 Free T4 (0.77 - 1.61 ng/dL) 0.7 L 08/18 08/18 08/18 08/18 08/18 1107 1004 0900 0823 0549 Chemistry POC Glucose (70 - 110 MG/DL) 223 H 304 H 405 H 449 H Hemoglobin A1c (4.8 - 6.0 %A1C) 13.4 H 08/18 08/18 08/18 0549 0305 0207Blood Gas Puncture Site R Radial O2 Saturation [...] O2 Delivery Device Room Air FiO2 (%) 21Chemistry Sodium (134 - 147 mEq/L) 121 *L [...] 2.34 Albumin (3.4 - 5.0 g/dL) 1.60 LSerology Influenza Type A (PCR) (Negative) Negative Influenza Type B (PCR) (Negative) NegativeToxicology Acetone, Quant (Neg - <20 mg/dL) Large [...] Culture Gram Stain - RES BLOOD Recent Impressions:RADIOLOGY - XR CHEST 2 V 08/18 0201 Report Impression - Status: SIGNED Entered: 08/18/2022 0317 IMPRESSION: Ill-defined somewhat nodular opacity measuring 3.2 cm laterally in the right mid lung suspicious for rounded pneumonia given provided history, but underlying neoplasm can not be excluded. Followup radiographs are recommended after appropriate treatment in order to document complete resolution and exclude an underlying process or neoplasm. Impression By: [email or web address] - Dom Adams M.D.RADIOLOGY - XR FOOT 3 + V RT 08/18 0238 Report Impression - Status: SIGNED Entered: 08/18/2022 0358 IMPRESSION: No acute osseous findings. No convincing evidence for osteomyelitis. MRI is more sensitive for detecting osteomyelitis.Impression By: Ankur Ladd M.D.CAT SCAN - CT ABD PELVIS W/CONT 08/18 0339 Report Impression - Status: SIGNED Entered: 08/18/2022 0569 IMPRESSION: 3.3 cm hypodensity in the left posterior prostate or seminal vesicle. This could represent an abscess. Contrast-enhanced MRI of the pelvis would be helpful for further evaluation.No acute intra-abdominal findings otherwise.Impression By: t.[email or web address] - Jay Wilberto, M.D.CAT SCAN - CT LOWER EXTRM W/O C RT 08/18 0645 Report Impression - Status: SIGNED Entered: 08/18/2022826 IMPRESSION: Extensive soft tissue edema with mottled gas in the subcutaneous and intramuscular compartments of the foot compatible with gas-forming infection. Disease extends into the visualized distal leg. Impression By: Jamel Doarntes M.D. 1. 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 DKA3. Cellulitis and gangrene of the right foot.4. Sepsis5. Altered mental status6. High LFTsBlood sugar 285-294 mg/dL.HbA1c 13.4%White count 17.9Sodium 121.Adjust insulin dose.Wound care and IV antibiotics.For wound debridement. at 1820 RPT #:[id number] OF REPORTPRProgress obty2721-21-70C15:19:00G.QPHH08974979-9277CCJkucx able for patient gcvgJWNHXOUVTRYBTG7333-47-08Z71:21:15 [facility] 2022-08-27 16:51:00 [id number] TzoCXcdmKxCvByX8uOdPglUwqIh4c TTwVIFLcNcy+berJsCiJwrxMISg9908-45-90A83:51:00 [facility] ([facility]ITALOrthopaedic Progress NoteREPORT#:[id number] REPORT STATUS: SignedDATE:08/27/22 TIME: 1651 PATIENT: KARMA ROWLAND UNIT #: [id number]#: [id number] [address]MIJ: [address] AGE: 56 SEX: M ATTEND: Wilbert Ramires MDADM AUTHOR: Nixon Leroy MD * ALL edits or amendments must be made on the electronic/computer document * SubjectiveChief complaint:right foot/ankle infectionHPI:56 yo male evaluated at bedside. He is pending surgery tomorrow for a right below-knee amputation. Patient did receive 2 units of PRBCs for a low hemoglobin. He reports doing well. Family at bedside. ObjectiveVS:Last Documented: Result Date Time Temp 36.7 08/27 1200 Pulse Ox 98 08/27 544 B/P 138/68 08/27 544 B/P Mean 94 08/27 544 Pulse 83 08/27 544 Resp 15 08/27 544 O2 Delivery Room air 08/26 2099 O2 Flow Rate 6 08/26 2038 PATIENT WEIGHT: Weight (lb): 157Weight (oz): 10.09Weight (kg): 71.500 Physical ExamGeneral appearance: alert, awake, orientedAnkle-right: multiple open surgical incision to the medial, lateral and dorums of foot. lateral wound extends to lateral ankle. The lateral wounds have demarcated. packing in place. able to weakly flex/ext toes/ankle. sensory and vascular exam limited due to extensive soft tissue damage and surgery Considered stroke alert: no ResultsFindings/data:Laboratory Tests 08/27 08/27 08/27 08/27 1147 0824 [...] (Auto) (14.0 - 32.0 %) 7.0 L [place] % (Auto) (4.8 - 9.0 %) 3.3 L Eos % (Auto) (0.3 - 3.7 %) 0.3 Baso % (Auto) (0.0 - 2.0 %) 0.1 Neut # (Auto) (2.0 - 7.6 x10 3/uL) 14.14 H Lymph # (Auto) (1.0 - 3.8 x10 3/uL) 1.11 [place] # (Auto) (0.1 - 0.8 x10 3/uL) 0.52 Eos # (Auto) (0.0 - 0.2 x10 3/uL) 0.04 Baso # (Auto) (0.0 - 0.2 x10 3/uL) 0.02 Abs Immat Gran (auto) (0.00 - 0.03 x10 3/uL) 0.10 H Add Manual Diff NO Immature Gran % (0.0 - 2.0 %) 0.6 Nucleated RBC % (0 - 0 %) 0.0 Nucleated RBCs # (Man) (0.0 - 0.1 x10 3/uL) 0.00 Diagnosis, Assessment PlanFree text A P:56 yo male with hx of DM and gas gangrene to right foot and ankle s/p I D. 1. N.p.o. after midnight. Plan for OR on 08/28/2022.2. NWB RLE3. Continue local wound care.4. Continue antibiotics per ID recommendations.5. DVT prophylaxis.6. Elevate extremity when at rest, offload heels.7. Type and screen.8. Anesthesia preop evaluation9. Plan is for right below-knee amputation. Discussed risk benefits alternative surgery. Risk include but not limited to pain, bleeding, damage to neurovascular structures, wound dehiscence, wound infection, need for proceduresanesthetic complications. Benefits include infection source control. Alternatives include no surgery which is not indicated for this grossly affectedright foot and ankle from gas gangrene. All question and concerns addressed. Alphonso plan for surgery on 08/28/2022. at 1654 RPT #:[id number] OF REPORTPRProgress [id number].[id number] able for patient [id number]:55:21 [facility] 2022-08-27 15:20:00 [id number] 0bztKtlSOgPG+[id number]:20:00 [facility] HospitalHospital[facility] Progress NoteREPORT#:[id number] REPORT STATUS: SignedDATE:08/27/22 TIME: 1520 PATIENT: KARMA ROWLAND UNIT #: [id number]#: [id number] [facility] AGE: 56 SEX: M ATTEND: Wilbert Ramires MDA AUTHOR: Musa Enriquez MD * ALL edits or amendments must be made on the electronic/computer document * SubjectiveChief complaint:AMS and right foot infection. s/p extensivedebridement. No acute issues. Review of SystemsAll systems rev neg: except as noted Objective GeneralVS/I O:Vital Signs: Date Time Temp Pulse Resp B/P [...] 96 04/04 2049 79 14 95 04/04 5 78 17 129/65 90 100 04/04 5 78 17 129/65 100 04/04 2040 78 9 128/67 91 100 04/04 9 Simple 6 mask 04/04 5 78 12 128/61 85 100 04/04 2000 [...] 86 12 138/63 91 100 04/04 1600 36.6 04/04 1600 85 12 170/76 109 100 04/04 1553 36.6 86 14 151/74 100 04/04 1549 36.6 85 14 151/74 100 04/04 1545 86 15 151/74 106 100 04/04 1530 86 31 168/71 102 98 24 hour I O ending at 0700: 04/05 0700 04/04 1900 Intake Total 36990.00 950.00 Output Total 35487 850 Balance -1845.00 100.00 Intake, IV 805.00 250.00 Intake, Oral 250 Intake, Other 9900 Intake, 700 Packed Cells Output, Other 9850 Output, Urine 2950 850 Patient 71.5 kg Weight Weight Bed scale Measurement Method PATIENT WEIGHT: Weight (lb): 157Weight (oz): 10.09Weight (kg): 71.500 Medications:Active Meds + DC'd Last 24 HrsMeropenem (MEROPENEM) 500 MG Q6H IV Sterile Water (WATER FOR INJECTION) 10 MLCalcium Gluconate/Sodium Chloride (Calcium Gluconate 1 GM/NS 50 mL) 50 ML ONCE ONE IV (DC) Sodium Polystyrene Sulfonate (KAYEXELATE) 30 GM ONCE ONE PO (DC) Midazolam HCl (VERSED) 0 .STK-MED ONE .ROUTE (DC) Diphenhydramine HCl (BENADRYL) 12.5 MG PACU ONCE PRN IV (DC) Fentanyl Citrate (SUBLIMAZE) 100 MCG PACU Q10MIN PRN PRN IV (DC) Fentanyl Citrate (SUBLIMAZE) 50 MCG PACU Q10MIN PRN PRN IV (DC) Hydralazine HCl (APRESOLINE) 5 MG PACU Q10MIN PRN PRN IV (DC) Hydrocodone Bitart/Acetaminophen (NORCO 5/325) 1 TAB PACU ONCE PO (DC) Hydromorphone HCl (DILAUDID) 1 MG PACU Q10MIN PRN PRN IV (DC) Hydromorphone HCl (DILAUDID) 0.5 MG PACU Q5MIN PRN PRN IV (DC) Insulin Human Lispro (HUMALOG) 0 PACU ONCE PRN SUBQ (DC) Labetalol HCl (LABETALOL HCL) 5 MG PACU Q10MIN PRN PRN IV (DC) Lactated Ringer's (LACTATED RINGERS) 1,000 ML .Q24H IV (DC) Meperidine HCl (MEPERIDINE HCL/PF) 12.5 MG PACU ONCE PRN IV (DC) Morphine Sulfate (morphine SULFATE) 2 MG PACU Q10MIN PRN PRN IV (DC) Ondansetron HCl (ZOFRAN) 4 MG PACU ONCE PRN IV (DC) Promethazine HCl (PHENERGAN) 25 MG PACU ONCE PRN PO (DC) Ropivacaine (NAROPIN 0.5% 150 MG/30mL) 150 MG ASDIR PRN LOCAL (DC) Tramadol HCl (ULTRAM) 50 MG PACU ONCE PO (DC) Dexamethasone Sodium Phosphate (DECADRON) 0 .STK-MED ONE .ROUTE (DC) Fentanyl Citrate (SUBLIMAZE) 0 .STK-MED ONE .ROUTE (DC) Lidocaine HCl (XYLOCAINE) 0 .STK-MED ONE .ROUTE (DC) Midazolam HCl (VERSED) 0 .STK-MED ONE .ROUTE (DC) Ondansetron HCl (ZOFRAN) 0 .STK-MED ONE .ROUTE (DC) Propofol (DIPRIVAN 200MG/20ML INJECTION) 20 ML .STK-MED ONE IV (DC) Ceftaroline Fosamil (TEFLARO) 600 MG Q8H IV (DC) Sodium Chloride (SODIUM CHLORIDE 0.9%) 100 MLDaptomycin (CUBICIN 500MG) 700 MG Q24H IV (CKD) Sodium Chloride (SODIUM CHLORIDE 0.9%) 50 MLFamotidine (PEPCID) 20 MG BID PO Lorazepam (ATIVAN) 1 MG ONCE PRN IV Sodium Chloride (SODIUM CHLORIDE) 0 ASDIR PRN IV Insulin Glargine (Lantus/Semglee) 25 UNIT BEDTIME SUBQ Insulin Human Lispro (HUMALOG) 7 UNIT AC SUBQ Insulin Human Lispro (HUMALOG) 0 AC HS SUBQ Dextrose/Water (DEXTROSE 10% IN WATER) 125 ML ASDIR PRN IV (CKD) Dextrose/Water (DEXTROSE 10% IN WATER) 250 ML ASDIR PRN IV (CKD) Glucagon (GLUCAGON) 1 MG ASDIR PRN IM Dextrose/Water (Dextrose 10% 1,000 mL) 1,000 ML ASDIR IV Acetaminophen (TYLENOL) 650 MG Q6H PRN PRN PO Bisacodyl (DULCOLAX) 10 MG DAILY PRN PRN RECTAL Docusate Sodium (COLACE) 100 MG Q12H PRN PRN PO Ondansetron HCl (ZOFRAN) 4 MG Q6H PRN PRN IV Heparin Sodium (HEPARIN 5000 UNITS/ML) 5,000 UNIT Q8HR SUBQ Physical ExamHead/Eyes: normocephalicENT: moist mucosal membranesNeck: no JVDCardiovascular: regular rate rhythm, no heaveRespiratory: aerating well, clear to auscultation, symmetric expansion, no distressAbdomen: non-tender, normal bowel sounds, soft, no distentionGenitourinary: no bladder distentionExtremities: R foot in dressingNeuro/DIRECTOR OPERATING ROOM: alert, oriented X 3, 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 Considered stroke alert: noSkin: no rashPsychiatry: normal affect, normal judgment/insight, normal mood Diagnosis, Assessment Plan Free Text DxA P NotesFree text DxA P notes:DKADM 2, poorly controlledsevere gas gangrene, right foot/necrotizing fascitisMRSA bacteremiaAKIsevere hyponatremia likely due to combination of severe hyperglycemia and dehydration from DKAsepsis due to foot infectionDM neuropathyHTNanemia, acute due to blood loss Plans: - [...] planning for I D today. Surgery on standby if needed to further debride his lower leg vs amputation. - WBC improving - will type and cross for blood and transfuse if less than 7 gms - d.w at [...] wean off insulin drip. Subq insulin and sliding scale. endo following - pain controlled - will likely need wound vac and alf IV antibiotic therapy - d/w at bedside - PT/OT 08/21/2022 - continue IV antibitoics - wound care with pulse lavage. will likely need wound vac at some point - off [...] transfuse blood for anemia. no overt blood loss - continue IV antibiotics - mobilize - pulse lavage to wound. ? wound vac - continue to monitor blood sugars - floor transfer - d/w 08/24/2022 - follow hgb and transfuse as needed - IV antibiotics - anesthesia consult for MRI - blood sugars ok - pulse lavage - await podiatry eval for wound care - ? wound vac - d.w at bedside 08/25/22Continue abx (Dapto and Teflaro) as per IDUpdated Urology on MRI results, Dr. Du will review images and discuss with family for possible prostate/seminal vesicle abscessCont wound care as per Podiatry, may have debridement today BP and BS well controlled K+ high, repeat levelHgb 7.3 stableDiscussed with at bedside 08/26/2022 - hgb low. will transfuse 2 units - d.w Dr. Pedersen - patient has lost so much tissues in his foot that his potential for wound closure and usability of his foot is poor. Recommendations made to proceed with BKA - continue to monitor blood sugars - IV antibitoics - wound care - urology planning for aspiration of prostatic cyst seen on MRI. PSA normal - OOB 08/27/22 s/p transfusion planned for BKA IV antibiotics Wound care DM - managed with insulin DVT prophylaxis at 1522 RPT #:[id number] OF REPORTPRProgress [id number]:20:00G.[id number] able for patient [id number]:22:29 [facility] 2022-08-27 15:13:00 [id number]bdd pT/rp2n6VPIptgaf8LH8UKOgc406169-89-75T69:13:00 [facility] ([facility])Infectious Dis. Progress NoteREPORT#:[id number] REPORT STATUS: SignedDATE:08/27/22 TIME: 1512 PATIENT: KARMA ROWLAND UNIT #: [id number]#: [id number] [facility] AGE: 56 SEX: M ATTEND: Wilbert Ramires [facility] AUTHOR: Merry Wolff MD * ALL edits or amendments must be made on the electronic/computer document * SubjectiveChief complaint:Follow-up on MRSA bacteremia, right lower extremity necrotizing soft tissue infection.HPI:PT is a 56yr old male with history of diabetes mellitus type 2, hypertension whowas admitted with altered mental status and right-sided foot infection. According to him, he noticed a blister on his right foot around 3 days prior to presentation. His foot got progressively more swollen and erythema extended proximally to his lateral foot and ankle. CT abdomen and pelvis with contrast is concerning for possible prostate abscess. CT of lower extremity without contrast shows extensive soft tissue edema with mottled gas in the subcutaneous and intramuscular compartments of the foot, compatible with gas-forming infection. Patient's blood cultures have come back positive for MRSA in 2 out of 2 sets. PT has had persistent (+)Ve cx for MRSA 08/18- 08/22. He underwent a debridement of his foot on 08/19 and cx grew MRSA. PT was started on Vancomycin and clindamycin on 08/18. His MRI showed a prostate abscess. 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 08/25 PT is afebrile, his WBX is 17.9, he is awake and alert. at the bedside 08/26 plan for transrectal aspiration today and BKA on 08/28, pt is afebrile, WBC is17.7, blood cx sent on 08/25 still positive, urine cx sent on 08/25 contaminated 08/27 s/p transrectal aspiration and unroofing of prostate abscess 08/26, aspirationcx growing GNR, pt is afebrile, WBC down to 15.9 from 17.7, Patient reports:Yes: pain controlled. No: cough, diarrhea, fever, headache, nausea, shortness of breath, vomiting. Portions of this section were scribed by Jill Quintero on 08/27/22 at 1513 Objective GeneralVS/I O:Vital Signs Date Temp Pulse Resp B/P B/P Mean Pulse Ox FiO2 08/26-08/27 97.8-98.2 78-124 9-31 119-175/55-107 83-123 95-100 Last Documented: Result Date Time Temp 98.1 / 1200 Pulse Ox 98 04/05 0545 B/P [...] 04/04 0 79 15 126/62 96 04/04 9 79 14 95 04/04 5 78 17 129/65 90 100 04/04 2044 [...] 0700: 04/05 0700 04/04 1900 Intake Total 38609.00 950.00 Output Total 00003 850 Balance -1845.00 100.00 Intake, IV 805.00 250.00 Intake, Oral 250 Intake, Other 9900 Intake, 700 Packed Cells Output, Other 9850 Output, Urine 2950 850 Patient 71.5 kg Weight Weight Bed scale Measurement Method PATIENT WEIGHT: Weight (lb): 157Weight (oz): 10.09Weight (kg): 71.500 Antibiotic start date:Antibiotic: clindamycin Start Date: 08/18-08/25 Antibiotic: Vancomycin Start Date: 08/18-08/25 Antibiotic: daptomycin Start Date:08/25 Antibiotic: TeflaroStart Date:08/25 Physical ExamGeneral appearance: alert, awake, orientedWound/incision: Location:right foot currently dressedHead/Eyes: atraumatic, normocephalicNeck: supple/no meningismus, no JVDCardiovascular: normal heart sounds, regular rate rhythm, no murmurRespiratory: clear to auscultation, aerating well, symmetric expansionAbdomen: non-tender, soft, no distentionGenitourinary: urinary catheter ( on CBI)Extremities: edema, RLE pitting edema notedNeuro/DIRECTOR OPERATING ROOM: alert, 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 Considered stroke alert: noSkin: lesions, no rashPsychiatry: normal affect, normal mood ResultsFindings/Data:Laboratory Tests 08/27 08/27 08/27 08/27 08/26 1147 0824 0533 0418 2041Chemistry Sodium (134 - 147 mEq/L) 137 Potassium [...] (Auto) (14.0 - 32.0 %) 7.0 L Len[place] % (Auto) (4.8 - 9.0 %) 3.3 L Eos % (Auto) (0.3 - 3.7 %) 0.3 Baso % (Auto) (0.0 - 2.0 %) 0.1 Neut # (Auto) (2.0 - 7.6 x10 3/uL) 14.14 H Lymph # (Auto) (1.0 - 3.8 x10 3/uL) 1.11 Lenoir # (Auto) (0.1 - 0.8 x10 3/uL) 0.52 Eos # (Auto) (0.0 - 0.2 x10 3/uL) 0.04 Baso # (Auto) (0.0 - 0.2 x10 3/uL) 0.02 Abs Immat Gran (auto) (0.00 - 0.03 x10 3/uL) 0.10 H Add Manual Diff NO Immature Gran % (0.0 - 2.0 %) 0.6 Nucleated RBC % (0 - 0 %) 0.0 Nucleated RBCs # (Man) (0.0 - 0.1 x10 3/uL) 0.00 Laboratory Tests: 08/27 08/27 08/27 08/27 08/26 1147 0824 0533 0418 2041Chemistry Sodium (134 - 147 mEq/L) 137 Potassium [...] Ionized Calcium Mitzi (1.09 - 1.30 1.08 LMMOL/L) Phosphorus (2.5 - 4.9 MG/DL) 5.4 H Magnesium (1.80 - 2.40 mg/dL) 1.94 Total Bilirubin (0.0 - 1.0 mg/dL) 0.40 AST (15 - 37 IUnit/L) 12 L ALT (30 - 65 IUnit/L) 9 L Total Alk Phosphatase (20 - 125 IUnit/L) 111 Total Protein (6.4 - 8.2 g/dL) 5.7 L Albumin (3.4 - 5.0 g/dL) 1.30 LHematology WBC (4.5 - 11.0 x10 3/uL) 15.9 [...] (Auto) (14.0 - 32.0 %) 7.0 L Lenoir % (Auto) (4.8 - 9.0 %) 3.3 L Eos % (Auto) (0.3 - 3.7 %) 0.3 Baso % (Auto) (0.0 - 2.0 %) 0.1 Neut # (Auto) (2.0 - 7.6 x10 3/uL) 14.14 H Lymph # (Auto) (1.0 - 3.8 x10 3/uL) 1.11 Lenoir # (Auto) (0.1 - 0.8 x10 3/uL) 0.52 Eos # (Auto) (0.0 - 0.2 x10 3/uL) 0.04 Baso # (Auto) (0.0 - 0.2 x10 3/uL) 0.02 Abs Immat Gran (auto) (0.00 - 0.03 0.10 Hx10 3/uL) Add Manual Diff NO Immature Gran % (0.0 - 2.0 %) 0.6 Nucleated RBC % (0 - 0 %) 0.0 Nucleated RBCs # (Man) (0.0 - 0.1 0.00x10 3/uL) 08/26 08/26 08/26 08/26 08/25 1739 1307 0906 0430 2008Chemistry Sodium (134 - 147 mEq/L) 136 Potassium [...] L Albumin (3.4 - 5.0 g/dL) 1.30 LHematology WBC (4.5 - 11.0 x10 3/uL) 17.7 [...] (Auto) (14.0 - 32.0 %) 7.4 L Lenoir % (Auto) (4.8 - 9.0 %) 3.9 L Eos % (Auto) (0.3 - 3.7 %) 0.5 Baso % (Auto) (0.0 - 2.0 %) 0.1 Neut # (Auto) (2.0 - 7.6 x10 3/uL) 15.49 H Lymph # (Auto) (1.0 - 3.8 x10 3/uL) 1.31 Lenoir # (Auto) (0.1 - 0.8 x10 3/uL) 0.69 Eos # (Auto) (0.0 - 0.2 x10 3/uL) 0.08 Baso # (Auto) (0.0 - 0.2 x10 3/uL) 0.01 Abs Immat Gran (auto) (0.00 - 0.03 0.11 Hx10 3/uL) Add Manual Diff NO Immature Gran % (0.0 - 2.0 %) 0.6 Nucleated RBC % (0 - 0 %) 0.0 Nucleated RBCs # (Man) (0.0 - 0.1 0.00x10 3/uL) 08/25 1723 Chemistry POC Glucose (70 - 110 MG/DL) 132 H Microbiology: Date/Time Procedure - Status Source Growth 08/26 2216 Wound Culture - RES ABSCESS GRAM NEGATIVE JAKOB 08/26 2216 Anaerobic Culture - RES ABSCESS 08/26 2216 Gram Stain - RES ABSCESS Medication(s) Ordered:Anti-Infective Agents Sig/Jan Start time Last Medication Dose Route Stop Time Status Admin Meropenem 500 MG Q6H 08/27 1330 AC 08/27 Sterile Water 10 ML IV 09/03 1329 1435 Ceftaroline Fosamil 600 MG Q8H 08/25 1100 DC 08/27 Sodium Chloride 100 ML IV 09/01 1059 1133 Daptomycin 700 MG Q24H 08/25 1100 CKD 08/27 Sodium Chloride 50 ML IV 09/08 1059 1134 Antihistamine Drugs Sig/Jan Start time Last Medication Dose Route Stop Time Status Admin Diphenhydramine HCl 12.5 MG PACU ONCE PRN 08/26 1930 DC IV 08/27 0524 Promethazine HCl 25 MG PACU ONCE PRN 08/26 193 DC PO 08/27 0524 Blood Formation,Coagulation Sig/Jan Start time Last Medication Dose Route Stop Time Status Admin Heparin Sodium 5,000 UNIT Q8HR 08/18 0600 AC 08/27 SUBQ 09/17 0559 1323 Cardiovascular Drugs Sig/Jan Start time Last Medication Dose Route Stop Time Status Admin Hydralazine HCl 5 MG PACU Q10MIN PRN PRN 08/26 193 DC IV 08/27 0424 Labetalol HCl 5 MG PACU Q10MIN PRN PRN 08/26 1929 DC IV 08/27 0424 Lidocaine HCl 0 .STK-MED ONE 08/27 1919 DC .ROUTE Central Nervous System Agents Sig/Jan Start time Last Medication Dose Route Stop Time Status Admin Midazolam HCl 0 .STK-MED ONE 08/26 1932 DC .ROUTE Fentanyl Citrate 100 MCG PACU Q10MIN PRN PRN 08/26 1929 DC IV 08/27 0424 Fentanyl Citrate 50 MCG PACU Q10MIN PRN PRN 08/26 1929 DC IV 08/27 0524 Hydrocodone Bitart/ 1 TAB PACU ONCE 08/26 1929 DC Acetaminophen PO 08/27 0424 Hydromorphone HCl 1 MG PACU Q10MIN PRN PRN 08/26 193 DC IV 08/27 0524 Hydromorphone HCl 0.5 MG PACU Q5MIN PRN PRN 08/26 193 DC IV 08/27 0424 Meperidine HCl 12.5 MG PACU ONCE PRN 08/26 1929 DC IV 08/27 0424 Morphine Sulfate 2 MG PACU Q10MIN PRN PRN 08/26 1929 DC IV 08/27 0424 Tramadol HCl 50 MG PACU ONCE 08/26 1929 DC PO 08/27 0524 Fentanyl Citrate 0 [...] 1314 Lactated Ringer's 1,000 ML .Q24H 08/26 1929 DC IV 08/27 0524 Sodium Chloride 0 [...] HCl 4 MG PACU ONCE PRN 08/26 1929 DC IV 08/27 0524 Ondansetron HCl 0 .STK-MED ONE 08/27 1919 DC .ROUTE Famotidine 20 MG BID 08/21 2100 AC 08/27 PO 09/20 205 0838 Bisacodyl 10 MG DAILY PRN PRN [...] Human Lispro 0 PACU ONCE PRN 08/26 1929 DC SUBQ 04/05 0524 Insulin Glargine 25 UNIT BEDTIME 08/20 2100 AC 08/24 SUBQ 09/19 205 213 Insulin Human Lispro 7 UNIT AC 08/20 1630 AC 08/27 SUBQ 09/19 1629 1157 Insulin Human Lispro 0 AC 08/20 1630 AC 08/27 SUBQ 09/19 1629 1157 Glucagon 1 MG ASDIR PRN 08/20 1530 AC IM 09/19 1529 Local Anesthetics (Parenteral) Sig/Jan Start time Last Medication Dose Route Stop Time Status Admin Ropivacaine 150 MG ASDIR PRN 08/26 1930 DC LOCAL 08/28 523 Microbiology:08/26 2216 ABSCESS: Wound Culture - RES GRAM NEGATIVE ROD08/26 2216 ABSCESS: Anaerobic Culture - RES08/26 221 ABSCESS: Gram Stain - RES08/25 104 URINE: Urine Culture - COMP08/25 1044 BLOOD: Blood Culture - RES COAG POS [id number]/ 1044 BLOOD: Blood Culture Gram Stain - RES08/25 1044 BLOOD: Blood Culture - RES COAG POS IDZEBQGEZKXFVE03/03 1044 BLOOD: Blood Culture Gram Stain - RES Portions of this section were scribed by Jill Quintero on 08/27/22 at 1513 Treatment Prophylaxis Treatment ProphylaxisLines: peripheralCVC/PICC documentation:The data below has been imported from nursing documentation. Any exceptions have been noted below under Provider comments. CVC/PICC insertion date/time: Provider comments on imported nursing data: [] Portions of this section were scribed by Jill Quintero on 08/27/22 at 1513 Diagnosis, Assessment PlanFree Text A P:Assessment: *MRSA bacteremia*Severe sepsis due to above*Right lower extremity necrotizing fasciitis-MRI of foot (+)Ve for osteomyelitis-s/p debridement on 08/19*DKA*Prostatic abscess*ERIKA*Hyponatremia*Diabetic neuropathy*Diabetes mellitus type 2*Hypertension -Initial blood cultures from 08/18/2022 positive for MRSA in 2 out of 2 sets.-Repeat blood cultures 08/21/2022 are already positive for MRSA in 2 out of 2 sets, suggesting persistent high-grade bacteremia. -Wound culture also positive for MRSA -TTE 08/18/2022 negative for any obvious vegetations. -Went to the OR 08/19/2022 per podiatry for an I D. Plan:08/25-Discussed the possibility of amputation with patient and family at bedside -Recommend JIMENA. -Repeat blood cultures x2 again today.-Continue to repeat serial blood cultures till bacteremia clears. -D/C clindamycin and vancomycin. -start on DAptomycin and Teflaro-check urine cx Discussed with Dr. Du about MRI report 08/26-plan for transrectal aspiration of abscess today-repeat blood cx are still (+)Ve; will repeat blood cx tomorrow-cont on daptomycin and Teflaro day #2-Pt needs a JIMENA r/o endocarditis as pt has high grade persistent bacteremia-plan for Right BKA on 08/28 4-s/p transrectal aspiration and unroofing of abscess; cx GNR; will follow- repeat blood cx today--cont on daptomycin and Teflaro day #3-Pt needs a JIMENA r/o endocarditis as pt has high grade persistent bacteremia-plan for Right BKA on 08/28 Portions of this section were scribed by Jill Quintero on 08/27/22 at 1513 at 1813 RPT #:[id number] OF REPORTPRProgress [id number]:13:00G.[id number] able for patient [id number]:17:12 [facility] 2022-08-27 10:19:00 [id number] HiNPtz1+ki+2o3n/iaG4Pyxp4MA02 scGdOgZQikwIUT4aydIBkvm5Pzo3721-00-54S38:19:00 [facility] ([facility])Cardiology Progress NoteREPORT#:[id number] REPORT STATUS: SignedDATE:08/27/22 TIME: 1019 PATIENT: KARMA ROWLAND UNIT #: [id number]#: [id number] [facility] AGE: 56 SEX: M [facility] AUTHOR: Rohit Benitez [employer]EARCH MANUFA[employer]URING OPERATOR * ALL edits or amendments must be made on the electronic/computer document * Rohit Benitez 08/27/22 1019:SubjectiveChief complaint:foot infection Free Text Subj NotesFree Text Subj Notes:Patient seen and evaluated. Resting in bed, on continuous bladder irrigation. Denies chest pain or pressure. Telemetry sinus rhythm Objective GeneralVS/I O:24 hour I O ending at 0700: 04/05 0700 04/04 1900 Intake Total 00906.00 950.00 Output Total 68586 850 Balance -1845.00 100.00 Intake, IV 805.00 250.00 Intake, Oral 250 Intake, Other 9900 Intake, 700 Packed Cells Output, Other 9850 Output, Urine 2950 850 Patient 158 lb Weight Weight Bed scale Measurement Method Vital Signs: Date Time Temp Pulse Resp B/P B/P Pulse O2 O2 Flow FiO2 Mean Ox Delivery Rate 04/05 0545 83 15 138/68 94 98 [...] 100 04/04 9 Simple 6 mask 04/04 5 78 12 [...] 132/63 90 98 PATIENT WEIGHT: Weight (lb): 157Weight (oz): 10.09Weight (kg): 71.500 Medications:Active Meds + DC'd Last 24 HrsMidazolam HCl (VERSED) 0 .STK-MED ONE .ROUTE (DC) Diphenhydramine HCl (BENADRYL) 12.5 MG PACU ONCE PRN IV (DC) Fentanyl Citrate (SUBLIMAZE) 100 MCG PACU Q10MIN PRN PRN IV (DC) Fentanyl Citrate (SUBLIMAZE) 50 MCG PACU Q10MIN PRN PRN IV (DC) Hydralazine HCl (APRESOLINE) 5 MG PACU Q10MIN PRN PRN IV (DC) Hydrocodone Bitart/Acetaminophen (NORCO 5/325) 1 TAB PACU ONCE PO (DC) Hydromorphone HCl (DILAUDID) 1 MG PACU Q10MIN PRN PRN IV (DC) Hydromorphone HCl (DILAUDID) 0.5 MG PACU Q5MIN PRN PRN IV (DC) Insulin Human Lispro (HUMALOG) 0 PACU ONCE PRN SUBQ (DC) Labetalol HCl (LABETALOL HCL) 5 MG PACU Q10MIN PRN PRN IV (DC) Lactated Ringer's (LACTATED RINGERS) 1,000 ML .Q24H IV (DC) Meperidine HCl (MEPERIDINE HCL/PF) 12.5 MG PACU ONCE PRN IV (DC) Morphine Sulfate (morphine SULFATE) 2 MG PACU Q10MIN PRN PRN IV (DC) Ondansetron HCl (ZOFRAN) 4 MG PACU ONCE PRN IV (DC) Promethazine HCl (PHENERGAN) 25 MG PACU ONCE PRN PO (DC) Ropivacaine (NAROPIN 0.5% 150 MG/30mL) 150 MG ASDIR PRN LOCAL (DC) Tramadol HCl (ULTRAM) 50 MG PACU ONCE PO (DC) Dexamethasone Sodium Phosphate (DECADRON) 0 .STK-MED ONE .ROUTE (DC) Fentanyl Citrate (SUBLIMAZE) 0 .STK-MED ONE .ROUTE (DC) Lidocaine HCl (XYLOCAINE) 0 .STK-MED ONE .ROUTE (DC) Midazolam HCl (VERSED) 0 .STK-MED ONE .ROUTE (DC) Ondansetron HCl (ZOFRAN) 0 .STK-MED ONE .ROUTE (DC) Propofol (DIPRIVAN 200MG/20ML INJECTION) 20 ML .STK-MED ONE IV (DC) Ceftaroline Fosamil (TEFLARO) 600 MG Q8H IV (CKD) Sodium Chloride (SODIUM CHLORIDE 0.9%) 100 MLDaptomycin (CUBICIN 500MG) 700 MG Q24H IV (CKD) Sodium Chloride (SODIUM CHLORIDE 0.9%) 50 MLFamotidine (PEPCID) 20 MG BID PO Lorazepam (ATIVAN) 1 MG ONCE PRN IV Sodium Chloride (SODIUM CHLORIDE) 0 ASDIR PRN IV Insulin Glargine (Lantus/Semglee) 25 UNIT BEDTIME SUBQ Insulin Human Lispro (HUMALOG) 7 UNIT AC SUBQ Insulin Human Lispro (HUMALOG) 0 AC HS SUBQ Dextrose/Water (DEXTROSE 10% IN WATER) 125 ML ASDIR PRN IV (CKD) Dextrose/Water (DEXTROSE 10% IN WATER) 250 ML ASDIR PRN IV (CKD) Glucagon (GLUCAGON) 1 MG ASDIR PRN IM Dextrose/Water (Dextrose 10% 1,000 mL) 1,000 ML ASDIR IV Acetaminophen (TYLENOL) 650 MG Q6H PRN PRN PO Bisacodyl (DULCOLAX) 10 MG DAILY PRN PRN RECTAL Docusate Sodium (COLACE) 100 MG Q12H PRN PRN PO Ondansetron HCl (ZOFRAN) 4 MG Q6H PRN PRN IV Heparin Sodium (HEPARIN 5000 UNITS/ML) 5,000 UNIT Q8HR SUBQ Physical ExamGeneral appearance: alert, awake, orientedNeck: no bruit/NL carotids, no JVDCardiovascular: CV assessment: abnormal S1/S2, regular rate and rhythm, no ectopyRespiratory: clear to auscultation, no distressLower extremity: LE assessment: edemaNeuro/DIRECTOR OPERATING ROOM: alert, oriented X 3 Considered stroke alert: noWound/incision: Location:right footPsychiatry: normal affect, normal judgment/insight, normal mood ResultsFindings/Data:Laboratory Tests 08/27 08/27 08/27 08/26 08/26 0824 0533 9753 1863 6438Chemistry Sodium (134 - 147 mEq/L) 137 Potassium [...] (Auto) (14.0 - 32.0 %) 7.0 L Len[place] % (Auto) (4.8 - 9.0 %) 3.3 L Eos % (Auto) (0.3 - 3.7 %) 0.3 Baso % (Auto) (0.0 - 2.0 %) 0.1 Neut # (Auto) (2.0 - 7.6 x10 3/uL) 14.14 H Lymph # (Auto) (1.0 - 3.8 x10 3/uL) 1.11 [place] # (Auto) (0.1 - 0.8 x10 3/uL) 0.52 Eos # (Auto) (0.0 - 0.2 x10 3/uL) 0.04 Baso # (Auto) (0.0 - 0.2 x10 3/uL) 0.02 Abs Immat Gran (auto) (0.00 - 0.03 x10 3/uL) 0.10 H Add Manual Diff NO Immature Gran % (0.0 - 2.0 %) 0.6 Nucleated RBC % (0 - 0 %) 0.0 Nucleated RBCs # (Man) (0.0 - 0.1 x10 3/uL) 0.00 Laboratory Tests 08/27 0533 Chemistry Magnesium (1.80 - 2.40 mg/dL) 1.94 Diagnosis, Assessment Plan Free Text DxA P NotesFree Text DxA P Notes:Impression: 1. Preop eval/cardiac clearance2. Infected right foot gas gangrene3. DKA4. Sepsis5. Hypertension 6. Anemia Recommendation: Patient presented for evaluation of altered mental status, weakness and elevatedblood sugar. Diagnosed with DKA and sepsis. 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 Known cardiac history of hypertension and hyperlipidemia. Denies prior history of CAD, CHF or arrhythmia. EKG abnormal, NSR with anterior infarct. Vital signs stable. No prior cardiac work-up. -Check echocardiogram-Monitor telemetry for arrhythmia-Monitor blood pressure trend-Wound care and IV antibiotic therapy-Supportive care 08/19: Patient doing better postop, blood pressure control, currently in sinus rhythm, lower extremity artery Doppler negative for any significant PAD, continue current management from primary team and podiatry service, continue monitor on telemetry for arrhythmia postop, supportive care, discussed with patient and family as well as RN, will follow. 08/21: Patient overall doing well, awake and alert today. Blood pressure well controlled. Currently in sinus rhythm to sinus tachycardia, will continue to monitor. Echocardiogram shows LVEF of 55 to 69%, no regional wall motion abnormalities, grade 1 diastolic dysfunction, and mildly dilated LA. continue antibiotic therapy and wound care. Supportive care. Plan of care discussed with patient, RN and Dr. Parham. 08/22: No Significant changes from cardiac standpoint. Vital signs stable. Telemetry monitoring reviewed, sinus rhythm to sinus tachycardia. We will continue monitor, sinus tachycardia likely related to underlying infection. Continue wound care and antibiotic therapy. Supportive care. Plan of care discussed with patient, RN and Dr. Parham. 08/23: Stable cardiac status. Blood pressure and heart rate well controlled. Continue monitor telemetry. Continue wound care. Plan to transfer to floor. Supportive care. Plan of care discussed with patient, RN and Dr. Parham. 08/24: Patient overall doing well, remains stable from cardiac standpoint. Blood pressure and heart rate well controlled. No new events noted on telemetrymonitoring. Remains in sinus rhythm by physical examination. Continue wound care. Supportive care. Plan of care discussed with patient, RN and Dr. Parham. 08/25: Remain stable from cardiac standpoint. Blood pressure well controlled. Currently in sinus rhythm by physical examination. Possible plan for another wound debridement today. Pain management and supportive care. Plan of care discussed with patient, RN and Dr. Parham. 08/26: Patient remains in sinus rhythm. Blood pressure well controlled. Plan for aspiration of prostatic cyst today. Plan for right BKA on . We will continue monitor patient postoperatively. Continue antibiotic therapy. Supportive care. Plan of care discussed with patient, RN and Dr. Parham. 08/27: Patient doing well status post aspiration of prostatic abscess and TURP. Currently on continuous bladder irrigation. Hemodynamically stable. Blood pressure and heart rate well controlled. Remains in normal sinus rhythm. Plan for right BKA tomorrow. Cleared from cardiac standpoint to proceed with plannedsurgery. Supportive care. Plan of care discussed with patient, RN and Dr. Parham. Napoleon Parham 08/28/22 0846:Diagnosis, Assessment PlanAdditional comments:Patient was seen and examined at bedside, agree with above assessment and plan as documented by nurse practitioner. Will follow. at 1937 at 0849 RPT #:[id number] OF REPORTPRProgress mylo6041-01-50X52:19:00G.[id number] able for patient tsyrEEUDFEMHYHALPM0830-74-45O86:38:02 [facility] 2022-08-26 20:26:00 [id number] im9TIuskwgejbXSvz9o5aNoH47/j6 ylyn5SdmRueZMhdrH94YuJ7uD8g6588-72-51S93:26:96082 4-[address] [address] PATIENT NAME: KARMA ROWLAND ADMIT DATE: 08/18/22ACCOUNT NO: [id number] ROOM NO: G.458 AGE: 56 REPORT TYPE: OPERATIVE REPORT SEX: M ADMITTING PHYSICIAN:Wilbert Ramires MD ATTENDING PHYSICIAN:Wilbert Ramires MD OPERATION DATE: 08/26/2022 SURGEON: David Du MD MEDIA PLANNER / BUYER: None. ANESTHESIA: General. PREOPERATIVE DIAGNOSIS: Prostate abscess. POSTOPERATIVE DIAGNOSIS: Prostate abscess. PROCEDURE PERFORMED: Transrectal ultrasound aspiration of abscess and transurethral resection of prostate with unroofing of abscess. FINDINGS: On the left side, we were able to aspirate some pus from the patient'sprostate transrectally and we were able to unroof the abscess transurethrally. PROCEDURE IN DETAIL: After signing informed consent, the patient was taken backto the procedure room where he underwent general anesthetic, IV antibiotics, putin the dorsal lithotomy position, prepped and draped in normal sterile fashion. We entered his rectum with the transrectal ultrasound probe, we were able to visualize what we believed to be the abscess or a cyst. We were able to use a 7-inch needle to aspirate some pus and sent this to microbiology. We then prepped and draped him for transurethral resection or unroofing of the prostate abscess. We entered his bladder with the visual obturator resectoscope he had normal anterior urethra. He had a small normal-appearing prostate. We switchedto the resection loop and on the left side we began resecting down until we had unroofed the prostate and drained the abscess. We then got hemostasis. We cauterized the base of the abscess. We irrigated out the chips. There were no other tumors or stones seen. We placed a wire into the bladder, removed the resectoscope and placed a 22-[place] 3-way C[place] catheter over the wire, put 30 mL in the balloon. The patient tolerated the procedure well. There were no complications. He will be continued on continuous bladder irrigation. Dictated By: David Du MD Date Dictated: 08/26/2022 20:26:13Date Transcribed: 08/26/2022 21:06:43J/SVRJob #: [id number] PATIENT NAME: KARMA ROWLAND Receipt ID: [id number] by David Du MD On 09/17/2022 06:53:50 PM at 0653 PATIENT NAME: KARMA ROWLAND ismnmx5537-02-69B07:06:00G.[id number] lable for patient emmdDLNZBQUWWKRQZA8971-10-58C33:54:10 [facility] 2022-08-26 20:04:00 [id number] M0d0LNY7WDUT/nXd6f6ECE2gTebsx 9MnY6FR7OYVnTADCDhydOinp9eu1044-44-33U78:04:00 [facility])Podiatry Progress NoteREPORT#:[id number] REPORT STATUS: SignedDATE:08/26/22 TIME: 2003 PATIENT: KARMA ROWLAND UNIT #: [id number]#: [id number] [address] [birth year] AGE: 56 SEX: M ATTEND: Wilbert Ramires [facility] AUTHOR: Liam Pedersen DPM * ALL edits or amendments must be made on the electronic/computer document * SubjectiveChief complaint:seen at bedside,. family memebers next to him denies having any pain foot covered and protected and offloaded drainage noted serosang. increased warmthPatient reports: no diarrhea, no fever, no headache, no itching, no nauseaComments:pt in ICU many questions answered again todaybut not anything like yesterday Objective GeneralVS:Last Documented: Result Date Time Pulse Ox 100 08/26 1914 B/P 152/72 08/26 1914 B/P Mean 105 08/26 1914 Pulse 87 08/26 1914 Resp 17 08/26 1914 Temp 36.8 08/26 1843 O2 Delivery Room air 08/24 190 O2 Flow Rate 2 08/21 0800 PATIENT WEIGHT: Weight (lb): 160Weight (oz): 15Weight (kg): 72.575 Medications:Active Meds + DC'd Last 24 HrsMidazolam HCl (VERSED) 0 .STK-MED ONE .ROUTE (DC) Diphenhydramine HCl (BENADRYL) 12.5 MG PACU ONCE PRN IV Fentanyl Citrate (SUBLIMAZE) 100 MCG PACU Q10MIN PRN PRN IV Fentanyl Citrate (SUBLIMAZE) 50 MCG PACU Q10MIN PRN PRN IV Hydralazine HCl (APRESOLINE) 5 MG PACU Q10MIN PRN PRN IV Hydrocodone Bitart/Acetaminophen (NORCO 5/325) 1 TAB PACU ONCE PO (CKD) Hydromorphone HCl (DILAUDID) 1 MG PACU Q10MIN PRN PRN IV Hydromorphone HCl (DILAUDID) 0.5 MG PACU Q5MIN PRN PRN IV Insulin Human Lispro (HUMALOG) 0 PACU ONCE PRN SUBQ Labetalol HCl (LABETALOL HCL) 5 MG PACU Q10MIN PRN PRN IV Lactated Ringer's (LACTATED RINGERS) 1,000 ML .Q24H IV Meperidine HCl (MEPERIDINE HCL/PF) 12.5 MG PACU ONCE PRN IV Morphine Sulfate (morphine SULFATE) 2 MG PACU Q10MIN PRN PRN IV Ondansetron HCl (ZOFRAN) 4 MG PACU ONCE PRN IV Promethazine HCl (PHENERGAN) 25 MG PACU ONCE PRN PO Ropivacaine (NAROPIN 0.5% 150 MG/30mL) 150 MG ASDIR PRN LOCAL Tramadol HCl (ULTRAM) 50 MG PACU ONCE PO (CKD) Dexamethasone Sodium Phosphate (DECADRON) 0 .STK-MED ONE .ROUTE (DC) Fentanyl Citrate (SUBLIMAZE) 0 .STK-MED ONE .ROUTE (DC) Lidocaine HCl (XYLOCAINE) 0 .STK-MED ONE .ROUTE (DC) Midazolam HCl (VERSED) 0 .STK-MED ONE .ROUTE (DC) Ondansetron HCl (ZOFRAN) 0 .STK-MED ONE .ROUTE (DC) Propofol (DIPRIVAN 200MG/20ML INJECTION) 20 ML .STK-MED ONE IV (DC) Ceftaroline Fosamil (TEFLARO) 600 MG Q8H IV (CKD) Sodium Chloride (SODIUM CHLORIDE 0.9%) 100 MLDaptomycin (CUBICIN 500MG) 700 MG Q24H IV (CKD) Sodium Chloride (SODIUM CHLORIDE 0.9%) 50 MLFamotidine (PEPCID) 20 MG BID PO Lorazepam (ATIVAN) 1 MG ONCE PRN IV Sodium Chloride (SODIUM CHLORIDE) 0 ASDIR PRN IV Insulin Glargine (Lantus/Semglee) 25 UNIT BEDTIME SUBQ Insulin Human Lispro (HUMALOG) 7 UNIT AC SUBQ Insulin Human Lispro (HUMALOG) 0 AC HS SUBQ Dextrose/Water (DEXTROSE 10% IN WATER) 125 ML ASDIR PRN IV (CKD) Dextrose/Water (DEXTROSE 10% IN WATER) 250 ML ASDIR PRN IV (CKD) Glucagon (GLUCAGON) 1 MG ASDIR PRN IM Dextrose/Water (Dextrose 10% 1,000 mL) 1,000 ML ASDIR IV Acetaminophen (TYLENOL) 650 MG Q6H PRN PRN PO Bisacodyl (DULCOLAX) 10 MG DAILY PRN PRN RECTAL Docusate Sodium (COLACE) 100 MG Q12H PRN PRN PO Ondansetron HCl (ZOFRAN) 4 MG Q6H PRN PRN IV Heparin Sodium (HEPARIN 5000 UNITS/ML) 5,000 UNIT Q8HR SUBQ I O:24 hour I O ending at 0700: 04/04 0700 04/03 1900 Intake Total 440.00 150.00 Output Total 750 725 Balance -310.00 -575.00 Intake, IV 200.00 150.00 Intake, Oral 240 Output, Urine 750 725 Dietitian nutrition assessmentThe data set between the solid lines has been imported from the dietitian's assessment. BMI Calculated: 25.8Nutrition related diagnosis: Nutrition diagnosis details: Nutrition problem: Nutrition etiology: Nutrition signs and symptoms: Nutrition prescription: Dietitian name: Assessment completed: Physical ExamWound/incision: Location:Right foot to right ankle. DP and PT pulses are very weak essentially nonpalpable. There is severe edema of the right foot to the right ankle, better. There is erythema of the right foot to the right ankle, much better. Not really any ascending lymphangitis past there. Crepitation is at the medial right hindfoot and the dorsal right midfoot are significantly less. There is no longer crepitation at the lateral right ankle. There is some bullae that are peeling medial and lateral. Sensation is greatly decreased on the right foot. base of three wounds fibrotic. sero purulent drainage. bones and tendons exposed. Left foot has no ulcers but has OA changes at ankle with some chronic edema.LE vascular pulse assess:Nonpalpable R posterior tibialis, Nonpalpable R dorsalis pedis Considered stroke alert: no Diagnosis, Assessment PlanFree Text A P:Gas gangrene right foot and right ankle (Gas in tissues/abscess)Diabetes with peripheral neuropathyMinimal peripheral vascular diseaseLeukocytosisSepsisDKAEdema and arthritis left ankle s/p surgical debridement and washoutCAT scan shows gas in 3 locationsX-rays right foot show no osseous changepacking with Iodoform.IV antibioticsMonitor leukocytosisNIAS: minimal PVD right08/18 wound culture: MRSA (This one is not accurate, it is of skin that was intact)08/19 OR culture: MRSAblood cultures: MRSAOffloading bootICU for nowpulse lavage by physical therapyace wrap compression left ankleMRI: osteo pt and family ultimately decided on BKA right.plan BKA with Dr. Leroy thursday/ at 2015 RPT #:[id number] OF REPORTPRProgress nloh9730-80-65G87:04:00G.WAQG60245396-9460OSFutie able for patient sbvmHWBHJKGSRDKNAN3671-56-17A36:15:39 [facility] 2022-08-26 17:30:00 [id number]+gVy /8HLMLZwIrXFPfR1EpDPjadEWV4tA hk7SFZj2hhrJMhABz5Vxsodbhod3308-80-15Q88:30:00 [facility])Endocrinology Progress NoteREPORT#:[id number] REPORT STATUS: SignedDATE:08/26/22 TIME: 1730 PATIENT: KARMA ROWLAND UNIT #: [id number]#: [id number] [address] [birth year] AGE: 56 SEX: M ATTEND: Wilbert Ramires [facility] AUTHOR: Braxton Chapin MD * ALL edits or amendments must be made on the electronic/computer document * SubjectivePatient reports: no complaints Objective GeneralVS:Last Documented: Result Date Time Pulse Ox 100 08/26 1613 B/P 138/63 08/26 1613 Temp 36.7 08/26 1613 Pulse 87 08/26 1613 Resp 14 08/26 1613 B/P Mean 83 08/26 0600 O2 Delivery Room air 08/24 1900 O2 Flow Rate 2 08/21 0800 PATIENT WEIGHT: Weight (lb): 160Weight (oz): 15Weight (kg): 72.575 Medications:Active Meds + DC'd Last 24 HrsBupivacaine HCl (MARCAINE 0.5% VIAL) 0 .STK-MED ONE .ROUTE (DC) Gentamicin Sulfate (GARAMYCIN) 0 .STK-MED ONE .ROUTE (DC) Lidocaine HCl (LIDOCAINE HCL/PF) 0 .STK-MED ONE .ROUTE (DC) Fentanyl Citrate (SUBLIMAZE) 0 .STK-MED ONE .ROUTE (DC) Midazolam HCl (VERSED) 0 .STK-MED ONE .ROUTE (DC) Propofol (DIPRIVAN 200MG/20ML INJECTION) 0 .STK-MED ONE IV (DC) Ceftaroline Fosamil (TEFLARO) 600 MG Q8H IV (CKD) Sodium Chloride (SODIUM CHLORIDE 0.9%) 100 MLDaptomycin (CUBICIN 500MG) 700 MG Q24H IV (CKD) Sodium Chloride (SODIUM CHLORIDE 0.9%) 50 MLFamotidine (PEPCID) 20 MG BID PO Lorazepam (ATIVAN) 1 MG ONCE PRN IV Sodium Chloride (SODIUM CHLORIDE) 0 ASDIR PRN IV Insulin Glargine (Lantus/Semglee) 25 UNIT BEDTIME SUBQ Insulin Human Lispro (HUMALOG) 7 UNIT AC SUBQ Insulin Human Lispro (HUMALOG) 0 AC HS SUBQ Dextrose/Water (DEXTROSE 10% IN WATER) 125 ML ASDIR PRN IV (CKD) Dextrose/Water (DEXTROSE 10% IN WATER) 250 ML ASDIR PRN IV (CKD) Glucagon (GLUCAGON) 1 MG ASDIR PRN IM Dextrose/Water (Dextrose 10% 1,000 mL) 1,000 ML ASDIR IV Acetaminophen (TYLENOL) 650 MG Q6H PRN PRN PO Bisacodyl (DULCOLAX) 10 MG DAILY PRN PRN RECTAL Docusate Sodium (COLACE) 100 MG Q12H PRN PRN PO Ondansetron HCl (ZOFRAN) 4 MG Q6H PRN PRN IV Heparin Sodium (HEPARIN 5000 UNITS/ML) 5,000 UNIT Q8HR SUBQ Physical ExamGeneral appearance: alert, awake Diagnosis, Assessment PlanHospital course to date:Laboratory Tests: 08/26 08/26 08/25 0906 0430 2007 [...] (Auto) (14.0 - 32.0 %) 7.4 L [place] % (Auto) (4.8 - 9.0 %) 3.9 L Eos % (Auto) (0.3 - 3.7 %) 0.5 Baso % (Auto) (0.0 - 2.0 %) 0.1 Neut # (Auto) (2.0 - 7.6 x10 3/uL) 15.49 H Lymph # (Auto) (1.0 - 3.8 x10 3/uL) 1.31 [place] # (Auto) (0.1 - 0.8 x10 3/uL) 0.69 Eos # (Auto) (0.0 - 0.2 x10 3/uL) 0.08 Baso # (Auto) (0.0 - 0.2 x10 3/uL) 0.01 Abs Immat Gran (auto) (0.00 - 0.03 x10 3/uL) 0.11 H Add Manual Diff NO Immature Gran % (0.0 - 2.0 %) 0.6 Nucleated RBC % (0 - 0 %) 0.0 Nucleated RBCs # (Man) (0.0 - 0.1 x10 3/uL) 0.00 Laboratory Tests: 08/25 08/25 08/25 08/25 1723 1111 1044 1044 Chemistry Potassium (3.4 - 5.0 mEq/L) 4.5 POC Glucose (70 - 110 MG/DL) 132 H 143 H Total Creatine Kinase (46 - 171 Units/L) 17 L Urines Urine Color (YEL/STRAW) YELLOW Urine Appearance (CLEAR) TURBID H Urine pH (5.0 - 7.0) 5.0 Ur Specific [place] (1.005 - 1.030) 1.012 Urine Protein (NEGATIVE) [...] (Auto) (14.0 - 32.0 %) 8.1 L [place] % (Auto) (4.8 - 9.0 %) 4.3 L Eos % (Auto) (0.3 - 3.7 %) 0.5 Baso % (Auto) (0.0 - 2.0 %) 0.1 Neut # (Auto) (2.0 - 7.6 x10 3/uL) 15.44 H Lymph # (Auto) (1.0 - 3.8 x10 3/uL) 1.45 [place] # (Auto) (0.1 - 0.8 x10 3/uL) 0.77 Eos # (Auto) (0.0 - 0.2 x10 3/uL) 0.09 Baso # (Auto) (0.0 - 0.2 x10 3/uL) 0.02 Abs Immat Gran (auto) (0.00 - 0.03 x10 3/uL) 0.13 H Add Manual Diff NO Immature Gran % (0.0 - 2.0 %) 0.7 Nucleated RBC % (0 - 0 %) 0.0 Nucleated RBCs # (Man) (0.0 - 0.1 x10 3/uL) 0.00 Microbiology: Date/Time Procedure - Status Source Growth 08/26 1043 Urine Culture - WKST URINE 08/26 1043 Blood Culture - RECD BLOOD 08/26 1043 Blood Culture - RECD BLOOD Laboratory Tests: 08/20 08/20 08/20 08/20 08/20 1107 0756 0647 0554 0454Chemistry Sodium (134 - 147 mEq/L) 137 Potassium [...] L Albumin (3.4 - 5.0 g/dL) 2.00 LHematology WBC (4.5 - 11.0 x10 3/uL) 22.8 [...] (Auto) (14.0 - 32.0 %) 4.8 L [place] % (Auto) (4.8 - 9.0 %) 2.9 L Eos % (Auto) (0.3 - 3.7 %) 0.0 L Baso % (Auto) (0.0 - 2.0 %) 0.2 Neut # (Auto) (2.0 - 7.6 x10 3/uL) 19.90 H Lymph # (Auto) (1.0 - 3.8 x10 3/uL) 1.10 [place] # (Auto) (0.1 - 0.8 x10 3/uL) 0.66 Eos # (Auto) (0.0 - 0.2 x10 3/uL) 0.00 Baso # (Auto) (0.0 - 0.2 x10 3/uL) 0.04 Abs Immat Gran (auto) (0.00 - 0.03 1.12 Hx10 3/uL) Add Manual Diff NO Immature Gran % (0.0 - 2.0 %) 4.9 H Nucleated RBC % (0 - 0 %) 0.0 Nucleated RBCs # (Man) (0.0 - 0.1 0.00x10 3/uL) 08/20 08/20 08/19 08/19 08/19 0259 [...] (37.5 - 50.7 %) 21.8 L 08/19 1652Chemistry Sodium (134 - 147 mEq/L) 133 L [...] 2.03 Albumin (3.4 - 5.0 g/dL) 1.40 LHematology WBC (4.5 - 11.0 x10 3/uL) 20.3 [...] (Auto) (14.0 - 32.0 %) 3.8 L [place] % (Auto) (4.8 - 9.0 %) 3.7 L Eos % (Auto) (0.3 - 3.7 %) 0.0 L Baso % (Auto) (0.0 - 2.0 %) 0.3 Neut # (Auto) (2.0 - 7.6 x10 3/uL) 17.97 H Lymph # (Auto) (1.0 - 3.8 x10 3/uL) 0.76 L [place] # (Auto) (0.1 - 0.8 x10 3/uL) 0.74 Eos # (Auto) (0.0 - 0.2 x10 3/uL) 0.00 Baso # (Auto) (0.0 - 0.2 x10 3/uL) 0.07 Abs Immat Gran (auto) (0.00 - 0.03 0.71 Hx10 3/uL) Add Manual Diff NO Immature Gran % (0.0 - 2.0 %) 3.5 H Nucleated RBC % (0 - 0 %) 0.0 Nucleated RBCs # (Man) (0.0 - 0.1 0.00x10 3/uL) 08/19 08/19 1622 1601 Chemistry POC Glucose (70 - 110 MG/DL) 232 H Urines Urine Color (YEL/STRAW) YELLOW Urine Appearance (CLEAR) SL CLOUDY Urine pH (5.0 - 7.0) 5.0 Ur Specific [place] (1.005 - 1.030) 1.013 Urine Protein (NEGATIVE) [...] 08/19 1709 Blood Culture - ORD BLOOD 03/28 1710 Blood Culture - ORD BLOOD 08/19 1622 [...] (Auto) (14.0 - 32.0 %) 4.3 L [place] % (Auto) (4.8 - 9.0 %) 3.1 L Eos % (Auto) (0.3 - 3.7 %) 0.0 L Baso % (Auto) (0.0 - 2.0 %) 0.3 Neut # (Auto) (2.0 - 7.6 x10 3/uL) 19.17 H Lymph # (Auto) (1.0 - 3.8 x10 3/uL) 0.91 L [place] # (Auto) (0.1 - 0.8 x10 3/uL) 0.67 Eos # (Auto) (0.0 - 0.2 x10 3/uL) 0.01 Baso # (Auto) (0.0 - 0.2 x10 3/uL) 0.07 Abs Immat Gran (auto) (0.00 - 0.03 x10 3/uL) 0.51 H Add Manual Diff NO Immature Gran % (0.0 - 2.0 %) 2.4 H Nucleated RBC % (0 - 0 %) 0.0 Nucleated RBCs # (Man) (0.0 - 0.1 x10 3/uL) 0.00 08/18 08/18 08/18 08/18 2246 2157 1854 [...] 1209 Gram Stain - RES ABSCESS Recent Impressions:ULTRASOUND - DUP LE ART UNI/LTD 08/19 0950 Report Impression - Status: SIGNED Entered: 08/19/2022 1056 IMPRESSION: No sonographic evidence for flow-limiting stenosis in the right lower extremity arterial system. Impression By: TipSG9 - Abraham Ross M.D. Laboratory Tests: 08/18 08/18 08/18 08/18 08/18 1430 1430 1404 1309 1203Chemistry Sodium (134 - 147 mEq/L) 131 L [...] 20.0 L Cholesterol/HDL Ratio (3.43 - 4.97 4.00RATIO) TSH (0.42 - 5.47) 0.96 Free T4 (0.77 - 1.61 ng/dL) 0.7 L 08/18 08/18 08/18 08/18 08/18 1107 1004 0900 0823 0549 Chemistry POC Glucose (70 - 110 MG/DL) 223 H 304 H 405 H 449 H Hemoglobin A1c (4.8 - 6.0 %A1C) 13.4 H 08/18 08/18 08/18 0549 0305 0207Blood Gas Puncture Site R Radial O2 Saturation [...] O2 Delivery Device Room Air FiO2 (%) 21Chemistry Sodium (134 - 147 mEq/L) 121 *L [...] 2.34 Albumin (3.4 - 5.0 g/dL) 1.60 LSerology Influenza Type A (PCR) (Negative) Negative Influenza Type B (PCR) (Negative) NegativeToxicology Acetone, Quant (Neg - <20 mg/dL) Large [...] Culture Gram Stain - RES BLOOD Recent Impressions:RADIOLOGY - XR CHEST 2 V 08/18 0201 Report Impression - Status: SIGNED Entered: 08/18/2022 0317 IMPRESSION: Ill-defined somewhat nodular opacity measuring 3.2 cm laterally in the right mid lung suspicious for rounded pneumonia given provided history, but underlying neoplasm can not be excluded. Followup radiographs are recommended after appropriate treatment in order to document complete resolution and exclude an underlying process or neoplasm. Impression By: Mark Adams M.D.RADIOLOGY - XR FOOT 3 + V RT 08/18 0238 Report Impression - Status: SIGNED Entered: 08/18/2022 0358 IMPRESSION: No acute osseous findings. No convincing evidence for osteomyelitis. MRI is more sensitive for detecting osteomyelitis.Impression By: Ankur Ladd M.D.CAT SCAN - CT ABD PELVIS W/CONT 08/18 0339 Report Impression - Status: SIGNED Entered: 08/18/2022 0546 IMPRESSION: 3.3 cm hypodensity in the left posterior prostate or seminal vesicle. This could represent an abscess. Contrast-enhanced MRI of the pelvis would be helpful for further evaluation.No acute intra-abdominal findings otherwise.Impression By: Ankur Ladd M.D.CAT SCAN - CT LOWER EXTRM W/O C RT 08/18 0645 Report Impression - Status: SIGNED Entered: 08/18/2022 0827 IMPRESSION: Extensive soft tissue edema with mottled gas in the subcutaneous and intramuscular compartments of the foot compatible with gas-forming infection. Disease extends into the visualized distal leg. Impression By: Jamel Dorantes M.D. 1. 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 DKA3. Cellulitis and gangrene of the right foot.4. Sepsis5. Altered mental status6. High LFTsBlood sugar 151-163. mg/dL.A gap 5HbA1c 13.4%White count 17.9Sodium 121.Adjust insulin dose.Wound care and IV antibiotics.For wound debridement. 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 Resting in bed, no new cardiac complaint. Telemetry sinus rhythm Objective GeneralVS/I O:24 hour I O ending at 0700: 08/26 0700 08/25 1900 Intake Total 440.00 150.00 Output Total 750 725 Balance -310.00 -575.00 Intake, IV 200.00 150.00 Intake, Oral 240 Output, Urine 750 725 Vital Signs: Date Time Temp Pulse Resp B/P B/P Pulse O2 O2 Flow FiO2 Mean Ox Delivery Rate 08/26 1430 98.1 84 16 150/69 100 08/26 1411 98.0 84 16 152/67 100 08/26 0600 84 19 121/58 83 99 08/26 0500 86 14 114/59 83 98 08/26 0400 98.2 08/26 0400 88 14 127/60 87 99 08/26 0300 89 17 130/59 88 97 08/26 0200 90 16 124/60 86 98 04/04 0100 92 13 129/61 88 99 04/04 0020 93 17 122/59 84 99 04/04 0000 98.4 04/04 0000 94 22 135/69 94 100 04/03 2300 92 15 129/60 86 99 04/03 2201 100 20 156/75 108 100 04/03 2100 96 17 138/62 89 100 04/03 2000 98.6 04/03 1999 95 18 149/69 99 100 04/03 1900 96 13 135/61 88 98 04/03 1800 98 17 153/70 101 100 04/03 1701 96 21 139/63 90 100 04/03 1600 98.7 04/03 1600 96 19 121/71 91 85 PATIENT WEIGHT: Weight (lb): 160Weight (oz): 15Weight (kg): 72.575 Medications:Active Meds + DC'd Last 24 HrsBupivacaine HCl (MARCAINE 0.5% VIAL) 0 .STK-MED ONE .ROUTE (DC) Gentamicin Sulfate (GARAMYCIN) 0 .STK-MED ONE .ROUTE (DC) Lidocaine HCl (LIDOCAINE HCL/PF) 0 .STK-MED ONE .ROUTE (DC) Fentanyl Citrate (SUBLIMAZE) 0 .STK-MED ONE .ROUTE (DC) Midazolam HCl (VERSED) 0 .STK-MED ONE .ROUTE (DC) Propofol (DIPRIVAN 200MG/20ML INJECTION) 0 .STK-MED ONE IV (DC) Ceftaroline Fosamil (TEFLARO) 600 MG Q8H IV (CKD) Sodium Chloride (SODIUM CHLORIDE 0.9%) 100 MLDaptomycin (CUBICIN 500MG) 700 MG Q24H IV (CKD) Sodium Chloride (SODIUM CHLORIDE 0.9%) 50 MLFamotidine (PEPCID) 20 MG BID PO Lorazepam (ATIVAN) 1 MG ONCE PRN IV Sodium Chloride (SODIUM CHLORIDE) 0 ASDIR PRN IV Insulin Glargine (Lantus/Semglee) 25 UNIT BEDTIME SUBQ Insulin Human Lispro (HUMALOG) 7 UNIT AC SUBQ Insulin Human Lispro (HUMALOG) 0 AC HS SUBQ Dextrose/Water (DEXTROSE 10% IN WATER) 125 ML ASDIR PRN IV (CKD) Dextrose/Water (DEXTROSE 10% IN WATER) 250 ML ASDIR PRN IV (CKD) Glucagon (GLUCAGON) 1 MG ASDIR PRN IM Dextrose/Water (Dextrose 10% 1,000 mL) 1,000 ML ASDIR IV Acetaminophen (TYLENOL) 650 MG Q6H PRN PRN PO Bisacodyl (DULCOLAX) 10 MG DAILY PRN PRN RECTAL Docusate Sodium (COLACE) 100 MG Q12H PRN PRN PO Ondansetron HCl (ZOFRAN) 4 MG Q6H PRN PRN IV Heparin Sodium (HEPARIN 5000 UNITS/ML) 5,000 UNIT Q8HR SUBQ Physical ExamGeneral appearance: alert, awake, orientedNeck: no bruit/NL carotids, no JVDCardiovascular: CV assessment: abnormal S1/S2, regular rate and rhythm, no ectopyRespiratory: clear to auscultation, no distressLower extremity: LE assessment: edemaNeuro/DIRECTOR OPERATING ROOM: alert, oriented X 3 Considered stroke alert: noWound/incision: Location:right footPsychiatry: normal affect, normal judgment/insight, normal mood ResultsFindings/Data:Laboratory Tests 08/26 08/26 08/25 08/25 0906 0430 2007 172 Chemistry Sodium (134 - 147 mEq/L) 136 [...] (Auto) (14.0 - 32.0 %) 7.4 L [place] % (Auto) (4.8 - 9.0 %) 3.9 L Eos % (Auto) (0.3 - 3.7 %) 0.5 Baso % (Auto) (0.0 - 2.0 %) 0.1 Neut # (Auto) (2.0 - 7.6 x10 3/uL) 15.49 H Lymph # (Auto) (1.0 - 3.8 x10 3/uL) 1.31 [place] # (Auto) (0.1 - 0.8 x10 3/uL) 0.69 Eos # (Auto) (0.0 - 0.2 x10 3/uL) 0.08 Baso # (Auto) (0.0 - 0.2 x10 3/uL) 0.01 Abs Immat Gran (auto) (0.00 - 0.03 x10 3/uL) 0.11 H Add Manual Diff NO Immature Gran % (0.0 - 2.0 %) 0.6 Nucleated RBC % (0 - 0 %) 0.0 Nucleated RBCs # (Man) (0.0 - 0.1 x10 3/uL) 0.00 Laboratory Tests 08/26 0430 Chemistry Magnesium (1.80 - 2.40 mg/dL) 1.89 Diagnosis, Assessment Plan Free Text DxA P NotesFree Text DxA P Notes:Impression: 1. Preop eval/cardiac clearance2. Infected right foot gas gangrene3. DKA4. Sepsis5. Hypertension 6. Anemia Recommendation: Patient presented for evaluation of altered mental status, weakness and elevatedblood sugar. Diagnosed with DKA and sepsis. 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 Known cardiac history of hypertension and hyperlipidemia. Denies prior history of CAD, CHF or arrhythmia. EKG abnormal, NSR with anterior infarct. Vital signs stable. No prior cardiac work-up. -Check echocardiogram-Monitor telemetry for arrhythmia-Monitor blood pressure trend-Wound care and IV antibiotic therapy-Supportive care 08/19: Patient doing better postop, blood pressure control, currently in sinus rhythm, lower extremity artery Doppler negative for any significant PAD, continue current management from primary team and podiatry service, continue monitor on telemetry for arrhythmia postop, supportive care, discussed with patient and family as well as RN, will follow. 08/21: Patient overall doing well, awake and alert today. Blood pressure well controlled. Currently in sinus rhythm to sinus tachycardia, will continue to monitor. Echocardiogram shows LVEF of 55 to 69%, no regional wall motion abnormalities, grade 1 diastolic dysfunction, and mildly dilated LA. continue antibiotic therapy and wound care. Supportive care. Plan of care discussed with patient, RN and Dr. Parham. 08/22: No Significant changes from cardiac standpoint. Vital signs stable. Telemetry monitoring reviewed, sinus rhythm to sinus tachycardia. We will continue monitor, sinus tachycardia likely related to underlying infection. Continue wound care and antibiotic therapy. Supportive care. Plan of care discussed with patient, RN and Dr. Parham. 08/23: Stable cardiac status. Blood pressure and heart rate well controlled. Continue monitor telemetry. Continue wound care. Plan to transfer to floor. Supportive care. Plan of care discussed with patient, RN and Dr. Parham. 08/24: Patient overall doing well, remains stable from cardiac standpoint. Blood pressure and heart rate well controlled. No new events noted on telemetrymonitoring. Remains in sinus rhythm by physical examination. Continue wound care. Supportive care. Plan of care discussed with patient, RN and Dr. Parham. 08/25: Remain stable from cardiac standpoint. Blood pressure well controlled. Currently in sinus rhythm by physical examination. Possible plan for another wound debridement today. Pain management and supportive care. Plan of care discussed with patient, RN and Dr. Parham. 08/26: Patient remains in sinus rhythm. Blood pressure well controlled. Plan for aspiration of prostatic cyst today. Plan for right BKA on . We will continue monitor patient postoperatively. Continue antibiotic therapy. Supportive care. Plan of care discussed with patient, RN and Dr. Parham. Napoleon Parham 08/27/22 0826:Diagnosis, Assessment PlanAdditional comments:Patient was seen and examined at bedside, agree with above assessment and plan as documented by nurse practitioner. Will follow. at 1832 at 0829 RPT #:[id number] OF REPORTPRProgress mlpw3077-38-33P61:50:00G.[id number] able for patient dsykFNLLDOWRMQGNYL8326-43-62J47:32:40 [facility] 2022-08-26 15:05:00 [id number] yvxJBPK/8NFJ3wSevQRhoHnCdnp5R ujLZ98z3+/q5j6XYMvrRlm8mJPN2908-77-75D75:05:00 [facility])Infectious Dis. Progress NoteREPORT#:[id number] REPORT STATUS: SignedDATE:08/26/22 TIME: 1505 PATIENT: KARMA ROWLAND UNIT #: [id number]#: [id number] [address] [birth year] AGE: 56 SEX: M ATTEND: Wilbert Ramires AUTHOR: Merry Wolff MD * ALL edits or amendments must be made on the electronic/computer document * SubjectiveChief complaint:Follow-up on MRSA bacteremia, right lower extremity necrotizing soft tissue infection.HPI:PT is a 56yr old male with history of diabetes mellitus type 2, hypertension whowas admitted with altered mental status and right-sided foot infection. According to him, he noticed a blister on his right foot around 3 days prior to presentation. His foot got progressively more swollen and erythema extended proximally to his lateral foot and ankle. CT abdomen and pelvis with contrast is concerning for possible prostate abscess. CT of lower extremity without contrast shows extensive soft tissue edema with mottled gas in the subcutaneous and intramuscular compartments of the foot, compatible with gas-forming infection. Patient's blood cultures have come back positive for MRSA in 2 out of 2 sets. PT has had persistent (+)Ve cx for MRSA 08/18- 08/22. He underwent a debridement of his foot on 08/19 and cx grew MRSA. PT was started on Vancomycin and clindamycin on 08/18. His MRI showed a prostate abscess. 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 08/25 PT is afebrile, his WBX is 17.9, he is awake and alert. at the bedside 08/26 plan for transrectal aspiration today and BKA on 08/28, pt is afebrile, WBC is17.7, blood cx sent on 08/25 still positive, urine cx sent on 08/25 contaminatedPatient reports:Yes: pain controlled. No: cough, diarrhea, fever, headache, nausea, shortness of breath. Portions of this section were scribed by Jill Quintero on 08/26/22 at 1505 Objective GeneralVS/I O:Vital Signs Date Temp Pulse Resp B/P B/P Mean Pulse Ox FiO2 08/25-08/26 98.0-98.7 84-100 13-22 114-156/58-75 83-108 85-100 Last Documented: Result Date Time Pulse Ox 100 / 1430 B/P 150/69 / 1430 Temp 98.1 / 1430 Pulse 84 / 1430 Resp 16 / 1430 B/P Mean 83 04/04 0600 O2 Delivery Room air 08/24 1900 O2 Flow Rate 2 08/21 0800 Vital Signs: Date Time Temp Pulse Resp B/P B/P Pulse O2 O2 Flow FiO2 Mean Ox Delivery Rate 08/26 1430 98.1 84 16 150/69 100 04/04 1411 98.0 84 16 152/67 100 /04 0600 84 19 121/58 83 99 04/04 [...] Urine 750 725 PATIENT WEIGHT: Weight (lb): 160Weight (oz): 15Weight (kg): 72.575 Antibiotic start date:Antibiotic: clindamycin Start Date: 08/18-08/25 Antibiotic: Vancomycin Start Date: 08/18-08/25 Antibiotic: daptomycin Start Date:08/25 Antibiotic: TeflaroStart Date:08/25 Physical ExamGeneral appearance: alert, awake, orientedWound/incision: Location:right foot currently dressedHead/Eyes: atraumatic, normocephalicNeck: supple/no meningismus, no JVDCardiovascular: normal heart sounds, regular rate rhythm, no murmurRespiratory: clear to auscultation, aerating well, symmetric expansionAbdomen: non-tender, soft, no distentionExtremities: edema, RLE pitting edema notedNeuro/DIRECTOR OPERATING ROOM: alert, 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 Considered stroke alert: noSkin: lesions, no rashPsychiatry: normal affect, normal mood ResultsFindings/Data:Laboratory Tests 04/04 0408/25 1723 Chemistry Sodium (134 - [...] (Auto) (14.0 - 32.0 %) 7.4 L [place] % (Auto) (4.8 - 9.0 %) 3.9 L Eos % (Auto) (0.3 - 3.7 %) 0.5 Baso % (Auto) (0.0 - 2.0 %) 0.1 Neut # (Auto) (2.0 - 7.6 x10 3/uL) 15.49 H Lymph # (Auto) (1.0 - 3.8 x10 3/uL) 1.31 [place] # (Auto) (0.1 - 0.8 x10 3/uL) 0.69 Eos # (Auto) (0.0 - 0.2 x10 3/uL) 0.08 Baso # (Auto) (0.0 - 0.2 x10 3/uL) 0.01 Abs Immat Gran (auto) (0.00 - 0.03 x10 3/uL) 0.11 H Add Manual Diff NO Immature Gran % (0.0 - 2.0 %) 0.6 Nucleated RBC % (0 - 0 %) 0.0 Nucleated RBCs # (Man) (0.0 - 0.1 x10 3/uL) 0.00 Laboratory Tests: 08/26 08/26 08/25 08/25 0906 0430 2007 1723Chemistry Sodium (134 - 147 mEq/L) 136 Potassium [...] L Albumin (3.4 - 5.0 g/dL) 1.30 LHematology WBC (4.5 - 11.0 x10 3/uL) 17.7 [...] (Auto) (14.0 - 32.0 %) 7.4 L [place] % (Auto) (4.8 - 9.0 %) 3.9 L Eos % (Auto) (0.3 - 3.7 %) 0.5 Baso % (Auto) (0.0 - 2.0 %) 0.1 Neut # (Auto) (2.0 - 7.6 x10 3/uL) 15.49 H Lymph # (Auto) (1.0 - 3.8 x10 3/uL) 1.31 [place] # (Auto) (0.1 - 0.8 x10 3/uL) 0.69 Eos # (Auto) (0.0 - 0.2 x10 3/uL) 0.08 Baso # (Auto) (0.0 - 0.2 x10 3/uL) 0.01 Abs Immat Gran (auto) (0.00 - 0.03 x10 3/uL) 0.11 H Add Manual Diff NO Immature Gran % (0.0 - 2.0 %) 0.6 Nucleated RBC % (0 - 0 %) 0.0 Nucleated RBCs # (Man) (0.0 - 0.1 x10 3/uL) 0.00 08/25 08/25 08/25 08/25 1111 1044 1044 0750Chemistry Sodium (134 - 147 mEq/L) 135 Potassium [...] L Albumin (3.4 - 5.0 g/dL) 1.30 LHematology WBC (4.5 - 11.0 x10 3/uL) 17.9 [...] (Auto) (14.0 - 32.0 %) 8.1 L [place] % (Auto) (4.8 - 9.0 %) 4.3 L Eos % (Auto) (0.3 - 3.7 %) 0.5 Baso % (Auto) (0.0 - 2.0 %) 0.1 Neut # (Auto) (2.0 - 7.6 x10 3/uL) 15.44 H Lymph # (Auto) (1.0 - 3.8 x10 3/uL) 1.45 [place] # (Auto) (0.1 - 0.8 x10 3/uL) 0.77 Eos # (Auto) (0.0 - 0.2 x10 3/uL) 0.09 Baso # (Auto) (0.0 - 0.2 x10 3/uL) 0.02 Abs Immat Gran (auto) (0.00 - 0.03 0.13 Hx10 3/uL) Add Manual Diff NO Immature Gran % (0.0 - 2.0 %) 0.7 Nucleated RBC % (0 - 0 %) 0.0 Nucleated RBCs # (Man) (0.0 - 0.1 0.00x10 3/uL)Urines Urine Color (YEL/STRAW) YELLOW Urine Appearance (CLEAR) TURBID H Urine pH (5.0 - 7.0) 5.0 Ur Specific [place] (1.005 - 1.030) 1.012 Urine Protein (NEGATIVE) [...] Culture Gram Stain - RES BLOOD Medication(s) Ordered:Anti-Infective Agents Sig/Jan Start time Last Medication Dose Route Stop Time Status Admin Gentamicin Sulfate 0 .STK-MED ONE 08/25 180 DC .ROUTE Ceftaroline Fosamil 600 MG Q8H 08/25 1100 CKD 08/26 Sodium Chloride 100 ML IV 09/01 1059 1137 Daptomycin 700 MG Q24H 08/25 1100 CKD 08/26 Sodium Chloride 50 ML IV 09/08 1059 1131 Blood Formation,Coagulation Sig/Jan Start time Last Medication Dose Route Stop Time Status Admin Heparin Sodium 5,000 UNIT Q8HR 08/18 0600 AC 08/25 SUBQ 09/17 0559 0550 Cardiovascular Drugs Sig/Jan [...] Lispro 7 UNIT AC 08/20 1630 AC 08/24 SUBQ 09/19 1629 1755 Insulin Human Lispro 0 AC HS 08/20 1630 AC 08/24 SUBQ 09/19 1629 0805 Glucagon 1 MG ASDIR PRN 08/20 1530 AC IM 09/19 1529 Local Anesthetics (Parenteral) Sig/Jan Start time Last Medication Dose Route Stop Time Status Admin Bupivacaine HCl 0 .STK-MED ONE 08/25 1804 DC .ROUTE Microbiology:08/25 1044 URINE: Urine Culture - RES04/03 1044 BLOOD: Blood Culture - RES04/03 1044 BLOOD: Blood Culture Gram Stain - RES0403 1044 BLOOD: Blood Culture - RES04/03 1044 BLOOD: Blood Culture Gram Stain - RES Portions of this section were scribed by Jill Quintero on 08/26/22 at 1505 Treatment Prophylaxis Treatment ProphylaxisLines: peripheral Portions of this section were scribed by Jill Quintero on 08/26/22 at 1505 Diagnosis, Assessment PlanFree Text A P:Assessment: *MRSA bacteremia*Severe sepsis due to above*Right lower extremity necrotizing fasciitis-MRI of foot (+)Ve for osteomyelitis-s/p debridement on 08/19*DKA*Prostatic abscess*ERIKA*Hyponatremia*Diabetic neuropathy*Diabetes mellitus type 2*Hypertension -Initial blood cultures from 08/18/2022 positive for MRSA in 2 out of 2 sets.-Repeat blood cultures 08/21/2022 are already positive for MRSA in 2 out of 2 sets, suggesting persistent high-grade bacteremia. -Wound culture also positive for MRSA -TTE 08/18/2022 negative for any obvious vegetations. -Went to the OR 08/19/2022 per podiatry for an I D. Plan:08/25-Discussed the possibility of amputation with patient and family at bedside -Recommend JIMENA. -Repeat blood cultures x2 again today.-Continue to repeat serial blood cultures till bacteremia clears. -D/C clindamycin and vancomycin. -start on DAptomycin and Teflaro-check urine cx Discussed with Dr. Du about MRI report 08/26-plan for transrectal aspiration of abscess today-repeat blood cx are still (+)Ve; will repeat blood cx tomorrow-cont on daptomycin and Teflaro day #2-Pt needs a JIMENA r/o endocarditis as pt has high grade persistent bacteremia-plan for Right BKA on 08/28 Portions of this section were scribed by Jill Quintero on 08/26/22 at 1505 at 1812 RPT #:[id number] OF REPORTPRProgress [id number]:05:00G.[id number] able for patient wxjvBVFZMHGBBUVENU0733-39-72D58:15:02 [facility] 2022-08-26 10:10:00 [id number] 93IbV39U4POqRG9TcW9TM02LA2VMo MWGp9GaaKsPRE1Mn4/CxGwGYhT+4917-22-90E66:10:00 [facility] ([facility])Orthopaedic Consult NoteREPORT#:[id number] REPORT STATUS: SignedDATE:08/26/22 TIME: 1010 PATIENT: KARMA ROWLAND UNIT #: [id number]#: [id number] [id number]: [address] AGE: 56 SEX: M ATTEND: Wilbert Ramires MDA AUTHOR: Nixon Leroy MD * ALL edits or amendments must be made on the electronic/computer document * History of Present Illness Time At Bedside)( Time at bedside: 1011Requesting clinician: Dr. Campbell for consult: right foot/ankle gas gangreneChief complaint:right foot/ankle infectionPCP:PCP: No Primary or Family Physician HPI:56 yo male evaluated at bedside. Patient presented to ER on 08/18 with worsening confusion over the last several days as well as wounds and worsening presentation to the right foot. Dr. Pedersen evaluated the patient and findings were significant for gas gangrene of the right foot and ankle. Patient went to OR for urgent debridement. He has been having wound care manage wound. Patient is at high risk for amputation from Infectious disease and podiatry standpoint. Called to evaluate and to discuss below knee amputation. History - Adult longitudinalAdditional medical history:DM 2 since age 33 DM neuropathy HTN hyperlipidemiaAdditional surgical history:as aboveAdditional family history:reviewed and non contributoryAlcohol use: Denies EtOH useDrug use: Denies recreational drugsSmoking status for patients 13 years old or older: Former SmokerOther social history: Local resident, Good social supportAllergies:Coded Allergies:No Known Allergies (03/23/11) Review of SystemsAll systems rev neg: except as marked (MSK-infection) ObjectiveVS:Last Documented: Result Date Time Pulse Ox 99 04/04 0600 B/P 121/58 04/04 0600 B/P Mean 83 04/04 0600 Pulse 84 04/04 0600 Resp 19 04/04 0600 Temp 36.8 04/04 0400 O2 Delivery Room air 04/ 1900 O2 Flow Rate 2 30 0800 PATIENT WEIGHT: Weight (lb): 160Weight (oz): 15Weight (kg): 72.575 Medications:Active Meds + DC'd Last 24 HrsBupivacaine HCl (MARCAINE 0.5% VIAL) 0 .STK-MED ONE .ROUTE (DC) Gentamicin Sulfate (GARAMYCIN) 0 .STK-MED ONE .ROUTE (DC) Lidocaine HCl (LIDOCAINE HCL/PF) 0 .STK-MED ONE .ROUTE (DC) Fentanyl Citrate (SUBLIMAZE) 0 .STK-MED ONE .ROUTE (DC) Midazolam HCl (VERSED) 0 .STK-MED ONE .ROUTE (DC) Propofol (DIPRIVAN 200MG/20ML INJECTION) 0 .STK-MED ONE IV (DC) Heparin Sodium (HEPARIN SODIUM) 0 .STK-MED ONE IV (DC) Ceftaroline Fosamil (TEFLARO) 600 MG Q8H IV (CKD) Sodium Chloride (SODIUM CHLORIDE 0.9%) 100 MLDaptomycin (CUBICIN 500MG) 700 MG Q24H IV (CKD) Sodium Chloride (SODIUM CHLORIDE 0.9%) 50 MLFamotidine (PEPCID) 20 MG BID PO Lorazepam (ATIVAN) 1 MG ONCE PRN IV Sodium Chloride (SODIUM CHLORIDE) 0 ASDIR PRN IV Insulin Glargine (Lantus/Semglee) 25 UNIT BEDTIME SUBQ Insulin Human Lispro (HUMALOG) 7 UNIT AC SUBQ Insulin Human Lispro (HUMALOG) 0 AC HS SUBQ Dextrose/Water (DEXTROSE 10% IN WATER) 125 ML ASDIR PRN IV (CKD) Dextrose/Water (DEXTROSE 10% IN WATER) 250 ML ASDIR PRN IV (CKD) Glucagon (GLUCAGON) 1 MG ASDIR PRN IM Dextrose/Water (Dextrose 10% 1,000 mL) 1,000 ML ASDIR IV Acetaminophen (TYLENOL) 650 MG Q6H PRN PRN PO Bisacodyl (DULCOLAX) 10 MG DAILY PRN PRN RECTAL Docusate Sodium (COLACE) 100 MG Q12H PRN PRN PO Ondansetron HCl (ZOFRAN) 4 MG Q6H PRN PRN IV Heparin Sodium (HEPARIN 5000 UNITS/ML) 5,000 UNIT Q8HR SUBQ Physical ExamGeneral appearance: alert, awake, orientedAnkle-right: multiple open surgical incision to the medial, lateral and dorums of foot. lateral wound extends to lateral ankle. The lateral wounds have demarcated. packing in place. able to weakly flex/ext toes/ankle. sensory and vascular exam limited due to extensive soft tissue damage and surgery Considered stroke alert: no ResultsFindings/data:Laboratory Tests 08/26 08/26 08/25 08/25 08/25 0906 0430 2007 1723 1111Chemistry Sodium (134 - 147 mEq/L) 136 Potassium [...] L Ionized Calcium Mitzi (1.09 - 1.30 1.11MMOL/L) Phosphorus (2.5 - 4.9 MG/DL) 4.6 Magnesium (1.80 - 2.40 mg/dL) 1.89 Total Bilirubin (0.0 - 1.0 mg/dL) 0.50 AST (15 - 37 IUnit/L) 19 ALT (30 - 65 IUnit/L) 11 L Total Alk Phosphatase (20 - 125 149 HIUnit/L) Total Protein (6.4 - 8.2 g/dL) 5.5 [...] (Auto) (14.0 - 32.0 %) 7.4 L [place] % (Auto) (4.8 - 9.0 %) 3.9 L Eos % (Auto) (0.3 - 3.7 %) 0.5 Baso % (Auto) (0.0 - 2.0 %) 0.1 Neut # (Auto) (2.0 - 7.6 x10 3/uL) 15.49 H Lymph # (Auto) (1.0 - 3.8 x10 3/uL) 1.31 [place] # (Auto) (0.1 - 0.8 x10 3/uL) 0.69 Eos # (Auto) (0.0 - 0.2 x10 3/uL) 0.08 Baso # (Auto) (0.0 - 0.2 x10 3/uL) 0.01 Abs Immat Gran (auto) (0.00 - 0.03 x10 3/uL) 0.11 H Add Manual Diff NO Immature Gran % (0.0 - 2.0 %) 0.6 Nucleated RBC % (0 - 0 %) 0.0 Nucleated RBCs # (Man) (0.0 - 0.1 x10 3/uL) 0.00 Laboratory Tests 08/25 1044 Urines Urine Color (YEL/STRAW) YELLOW Urine Appearance (CLEAR) TURBID H Urine pH (5.0 - 7.0) 5.0 Ur Specific [place] (1.005 - 1.030) 1.012 Urine Protein (NEGATIVE) [...] Mucus (NONE SEEN /LPF) TRACE Diagnosis, Assessment PlanFree Text A P:56 yo male with hx of DM and gas gangrene to right foot and ankle s/p I D. 1. Patient will benefit from BKA for infection control. Discussed with family and patient and are willing to proceed. 2. PT/OT- NWB RLE. 3. Continue abx per ID. 4. Continue local wound care. 5. DVT ppx. 6. Patient liason from [facility] consulted. 7. Anesthesia pre op eval. 8. Will plan for right BKA on . at 1026 RPT #:[id number] OF REPORTQREyijyrmqohhk7772-82-93Z12:10:00G.PDOC2 [id number] for patient idkmZGUIUPVTHBUAQG2604-38-01D85:26:40 [facility] 2022-08-26 08:12:00 [id number] NsQb751uGChAJuWL4SDZgEevwp97L Q6VVim9hh5o18trQWQW+DD85zaS8856-82-71V74:12:00 [facility] HospitalHospitalist Progress NoteREPORT#:[id number] REPORT STATUS: SignedDATE:08/26/22 TIME: 0812 PATIENT: KARMA ROWLAND UNIT #: [id number]#: [id number] [address] [birth year] AGE: 56 SEX: M ATTEND: Wilbert Ramires MDADM AUTHOR: Wilbert Ramires MD * ALL edits or amendments must be made on the electronic/computer document * SubjectiveChief complaint:AMS and right foot infection. s/p extensivedebridement. No acute issues. Pain controlled. patient agreeable for BKA Review of SystemsAll systems rev neg: except as noted Objective GeneralVS/I O:Vital Signs: Date Time Temp Pulse Resp B/P B/P Pulse O2 O2 Flow FiO2 Mean Ox Delivery Rate 08/26 0600 84 19 121/58 83 99 08/26 0500 86 14 114/59 83 98 08/26 0400 98.2 08/26 0400 88 14 127/60 87 99 / 0300 89 17 130/59 88 97 / 0200 90 16 124/60 86 98 04/04 0100 92 13 129/61 88 99 / 0020 93 17 122/59 84 99 04/ 0000 98.4 / 0000 94 22 135/69 94 100 08/25 2300 92 15 129/60 86 99 / 2201 100 20 156/75 108 100 04/03 2100 96 17 138/62 89 100 04/03 1999 98.6 04/03 1999 95 18 149/69 99 100 04/03 1900 [...] I O ending at 0700: 08/26 0700 04/ 1900 Intake Total 440.00 150.00 Output Total 750 725 Balance -310.00 -575.00 Intake, IV 200.00 150.00 Intake, Oral 240 Output, Urine 750 725 PATIENT WEIGHT: Weight (lb): 160Weight (oz): 15Weight (kg): 72.575 Medications:Active Meds + DC'd Last 24 HrsBupivacaine HCl (MARCAINE 0.5% VIAL) 0 .STK-MED ONE .ROUTE (DC) Gentamicin Sulfate (GARAMYCIN) 0 .STK-MED ONE .ROUTE (DC) Lidocaine HCl (LIDOCAINE HCL/PF) 0 .STK-MED ONE .ROUTE (DC) Fentanyl Citrate (SUBLIMAZE) 0 .STK-MED ONE .ROUTE (DC) Midazolam HCl (VERSED) 0 .STK-MED ONE .ROUTE (DC) Propofol (DIPRIVAN 200MG/20ML INJECTION) 0 .STK-MED ONE IV (DC) Heparin Sodium (HEPARIN SODIUM) 0 .STK-MED ONE IV (DC) Ceftaroline Fosamil (TEFLARO) 600 MG Q8H IV (CKD) Sodium Chloride (SODIUM CHLORIDE 0.9%) 100 MLDaptomycin (CUBICIN 500MG) 700 MG Q24H IV (CKD) Sodium Chloride (SODIUM CHLORIDE 0.9%) 50 MLFamotidine (PEPCID) 20 MG BID PO Lorazepam (ATIVAN) 1 MG ONCE PRN IV Sodium Chloride (SODIUM CHLORIDE) 0 ASDIR PRN IV Insulin Glargine (Lantus/Semglee) 25 UNIT BEDTIME SUBQ Insulin Human Lispro (HUMALOG) 7 UNIT AC SUBQ Insulin Human Lispro (HUMALOG) 0 AC HS SUBQ Dextrose/Water (DEXTROSE 10% IN WATER) 125 ML ASDIR PRN IV (CKD) Dextrose/Water (DEXTROSE 10% IN WATER) 250 ML ASDIR PRN IV (CKD) Glucagon (GLUCAGON) 1 MG ASDIR PRN IM Dextrose/Water (Dextrose 10% 1,000 mL) 1,000 ML ASDIR IV Acetaminophen (TYLENOL) 650 MG Q6H PRN PRN PO Bisacodyl (DULCOLAX) 10 MG DAILY PRN PRN RECTAL Docusate Sodium (COLACE) 100 MG Q12H PRN PRN PO Ondansetron HCl (ZOFRAN) 4 MG Q6H PRN PRN IV Heparin Sodium (HEPARIN 5000 UNITS/ML) 5,000 UNIT Q8HR SUBQ Miscellaneous Information (VANCOMYCIN PHARMACY TO DOSE) 1 EACH ASDIR IV (DC) Physical ExamGeneral appearance: alert, awake, orientedHead/Eyes: normocephalicENT: moist mucosal membranesNeck: no JVDCardiovascular: regular rate rhythm, no heaveRespiratory: aerating well, clear to auscultation, symmetric expansion, no distressAbdomen: non-tender, normal bowel sounds, soft, no distentionGenitourinary: no bladder distentionExtremities: R foot in dressingNeuro/DIRECTOR OPERATING ROOM: alert, oriented X 3, 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 Considered stroke alert: noSkin: no rashPsychiatry: normal affect, normal judgment/insight, normal mood ResultsFindings/Data:Laboratory Tests 08/26 1723 1111 1044Chemistry Sodium (134 - 147 mEq/L) 136 Potassium [...] (3.4 - 5.0 g/dL) 1.30 L 08/25 1044 Chemistry Potassium (3.4 - 5.0 mEq/L) [...] (Auto) (14.0 - 32.0 %) 7.4 L [place] % (Auto) (4.8 - 9.0 %) 3.9 L Eos % (Auto) (0.3 - 3.7 %) 0.5 Baso % (Auto) (0.0 - 2.0 %) 0.1 Neut # (Auto) (2.0 - 7.6 x10 3/uL) 15.49 H Lymph # (Auto) (1.0 - 3.8 x10 3/uL) 1.31 [place] # (Auto) (0.1 - 0.8 x10 3/uL) 0.69 Eos # (Auto) (0.0 - 0.2 x10 3/uL) 0.08 Baso # (Auto) (0.0 - 0.2 x10 3/uL) 0.01 Abs Immat Gran (auto) (0.00 - 0.03 x10 3/uL) 0.11 H Add Manual Diff NO Immature Gran % (0.0 - 2.0 %) 0.6 Nucleated RBC % (0 - 0 %) 0.0 Nucleated RBCs # (Man) (0.0 - 0.1 x10 3/uL) 0.00 Laboratory Tests 08/25 1044 Urines Urine Color (YEL/STRAW) YELLOW Urine Appearance (CLEAR) TURBID H Urine pH (5.0 - 7.0) 5.0 Ur Specific [place] (1.005 - 1.030) 1.012 Urine Protein (NEGATIVE) [...] Diagnosis, Assessment Plan Free Text DxA P NotesFree text DxA P notes:DKADM 2, poorly controlledsevere gas gangrene, right foot/necrotizing fascitisMRSA bacteremiaAKIsevere hyponatremia likely due to combination of severe hyperglycemia and dehydration from DKAsepsis due to foot infectionDM neuropathyHTNanemia, acute due to blood loss Plans: - [...] planning for I D today. Surgery on standby if needed to further debride his lower leg vs amputation. - WBC improving - will type and cross for blood and transfuse if less than 7 gms - d.w at [...] wean off insulin drip. Subq insulin and sliding scale. endo following - pain controlled - will likely need wound vac and alf IV antibiotic therapy - d/w at bedside - PT/OT 08/21/2022 - continue IV antibitoics - wound care with pulse lavage. will likely need wound vac at some point - off [...] transfuse blood for anemia. no overt blood loss - continue IV antibiotics - mobilize - pulse lavage to wound. ? wound vac - continue to monitor blood sugars - floor transfer - d/w 08/24/2022 - follow hgb and transfuse as needed - IV antibiotics - anesthesia consult for MRI - blood sugars ok - pulse lavage - await podiatry eval for wound care - ? wound vac - d.w at bedside 08/25/22Continue abx (Dapto and Teflaro) as per IDUpdated Urology on MRI results, Dr. Du will review images and discuss with family for possible prostate/seminal vesicle abscessCont wound care as per Podiatry, may have debridement today BP and BS well controlled K+ high, repeat levelHgb 7.3 stableDiscussed with at bedside 08/26/2022 - hgb low. will transfuse 2 units - d.w Dr. Pedersen - patient has lost so much tissues in his foot that his potential for wound closure and usability of his foot is poor. Recommendations made to proceed with BKA - continue to monitor blood sugars - IV antibitoics - wound care - urology planning for aspiration of prostatic cyst seen on MRI. PSA normal - OOB at 0638 RPT #:[id number] OF REPORTPRProgress [id number]:12:00G.[id number] able for patient mgzfAGCPFPGFEBTAHZ4430-81-33J05:38:23 [facility] 2022-08-25 21:29:00 [id number] LdA3Ytpc8+Zsjp6eCRb+BSesrraAp 70F6zPwYplso1DxVobyjfXHeOyi1452-62-81B97:29:00 [facility])Podiatry Progress NoteREPORT#:[id number] REPORT STATUS: SignedDATE:08/25/22 TIME: 2128 PATIENT: KARMA ROWLAND UNIT #: [id number]#: [id number] [id number]: [address] AGE: 56 SEX: M ATTEND: Wilbert Ramires [facility]DM AUTHOR: Liam Pedersen DPM * ALL edits or amendments must be made on the electronic/computer document * SubjectiveChief complaint:seen at bedside,. family memebers next to him denies having any pain foot covered and protected and offloaded drainage noted serosang. increased warmthPatient reports: no confusion, no constipation, no dizziness, no fatigue, no headache, no itching, no nauseaComments:pt in ICU i spent a total of over 2 hours came and met with pt and sister this am for a long time. two more conversations later in day with more family and relatives. events noted. Objective GeneralVS:Last Documented: Result Date Time Temp 37.0 08/26 1999 Pulse Ox 100 08/26 1999 B/P 149/69 08/26 1999 B/P Mean 99 08/26 1999 Pulse 95 08/26 1999 Resp 18 08/26 1999 O2 Delivery Room air 08/24 190 O2 Flow Rate 2 08/21 0800 PATIENT WEIGHT: Weight (lb): 160Weight (oz): 15Weight (kg): 72.575 Medications:Active Meds + DC'd Last 24 HrsBupivacaine HCl (MARCAINE 0.5% VIAL) 0 .STK-MED ONE .ROUTE (DC) Gentamicin Sulfate (GARAMYCIN) 0 .STK-MED ONE .ROUTE (DC) Lidocaine HCl (LIDOCAINE HCL/PF) 0 .STK-MED ONE .ROUTE (DC) Fentanyl Citrate (SUBLIMAZE) 0 .STK-MED ONE .ROUTE (DC) Midazolam HCl (VERSED) 0 .STK-MED ONE .ROUTE (DC) Propofol (DIPRIVAN 200MG/20ML INJECTION) 0 .STK-MED ONE IV (DC) Heparin Sodium (HEPARIN SODIUM) 0 .STK-MED ONE IV (DC) Ceftaroline Fosamil (TEFLARO) 600 MG Q8H IV (CKD) Sodium Chloride (SODIUM CHLORIDE 0.9%) 100 MLDaptomycin (CUBICIN 500MG) 700 MG Q24H IV (CKD) Sodium Chloride (SODIUM CHLORIDE 0.9%) 50 MLFamotidine (PEPCID) 20 MG BID PO Lorazepam (ATIVAN) 1 MG ONCE PRN IV Sodium Chloride (SODIUM CHLORIDE) 0 ASDIR PRN IV Insulin Glargine (Lantus/Semglee) 25 UNIT BEDTIME SUBQ Insulin Human Lispro (HUMALOG) 7 UNIT AC SUBQ Insulin Human Lispro (HUMALOG) 0 AC HS SUBQ Dextrose/Water (DEXTROSE 10% IN WATER) 125 ML ASDIR PRN IV (CKD) Dextrose/Water (DEXTROSE 10% IN WATER) 250 ML ASDIR PRN IV (CKD) Glucagon (GLUCAGON) 1 MG ASDIR PRN IM Dextrose/Water (Dextrose 10% 1,000 mL) 1,000 ML ASDIR IV Acetaminophen (TYLENOL) 650 MG Q6H PRN PRN PO Bisacodyl (DULCOLAX) 10 MG DAILY PRN PRN RECTAL Docusate Sodium (COLACE) 100 MG Q12H PRN PRN PO Ondansetron HCl (ZOFRAN) 4 MG Q6H PRN PRN IV Heparin Sodium (HEPARIN 5000 UNITS/ML) 5,000 UNIT Q8HR SUBQ Miscellaneous Information (VANCOMYCIN PHARMACY TO DOSE) 1 EACH ASDIR IV (DC) I O:24 hour I O ending at 0700: 04/03 0700 04/02 1900 Intake Total 1280 Output Total 700 850 Balance -700 430 Intake, Oral 1280 Number 3 Bowel Movements Output, Urine 700 850 Dietitian nutrition assessmentThe data set between the solid lines has been imported from the dietitian's assessment. BMI Calculated: 25.8Nutrition related diagnosis: Nutrition diagnosis details: Nutrition problem: Nutrition etiology: Nutrition signs and symptoms: Nutrition prescription: Dietitian name: Assessment completed: Physical ExamGeneral appearance: alert, awake, oriented, pleasant, conversational, mental status normalWound/incision: Location:Right foot to right ankle. DP and PT pulses are very weak essentially nonpalpable.There is severe edema of the right foot to the right ankle, better.There is erythema of the right foot to the right ankle, much better.Not really any ascending lymphangitis past there.Crepitation is at the medial right hindfoot and the dorsal right midfootare significantly less.There is no longer crepitation at the lateral right ankle.There is some bullae that are peeling medial and lateral.Sensation is greatly decreased on the right foot. base of three wounds fibrotic.sero purulent drainage. bones and tendons exposed. Left foot has no ulcers but has OA changes at ankle with some chronic edema. LE vascular pulse assess:Nonpalpable R posterior tibialis, Nonpalpable R dorsalis pedis Considered stroke alert: no ResultsFindings/Data:Laboratory Tests: 08/25 1723 1111 1044 1044Chemistry Potassium (3.4 - 5.0 mEq/L) 4.5 POC Glucose (70 - 110 MG/DL) 113 H 132 H 143 H Total Creatine Kinase (46 - 171 17 LUnits/L)Urines Urine Color (YEL/STRAW) YELLOW Urine Appearance (CLEAR) TURBID H Urine pH (5.0 - 7.0) 5.0 Ur Specific [place] (1.005 - 1.030) 1.012 Urine Protein (NEGATIVE) [...] Ur Squamous Epith Cells (NONE SEEN NONE SEEN/HPF) Ur Transition Epith Cell (NONE SEEN 3+ H/HPF) Urine Bacteria (NONE SEEN /HPF) TRACE Urine Mucus (NONE SEEN /LPF) TRACE 08/25 08/25 1798 3791 Chemistry Sodium (134 - 147 mEq/L) 135 [...] (Auto) (14.0 - 32.0 %) 8.1 L [place] % (Auto) (4.8 - 9.0 %) 4.3 L Eos % (Auto) (0.3 - 3.7 %) 0.5 Baso % (Auto) (0.0 - 2.0 %) 0.1 Neut # (Auto) (2.0 - 7.6 x10 3/uL) 15.44 H Lymph # (Auto) (1.0 - 3.8 x10 3/uL) 1.45 [place] # (Auto) (0.1 - 0.8 x10 3/uL) 0.77 Eos # (Auto) (0.0 - 0.2 x10 3/uL) 0.09 Baso # (Auto) (0.0 - 0.2 x10 3/uL) 0.02 Abs Immat Gran (auto) (0.00 - 0.03 x10 3/uL) 0.13 H Add Manual Diff NO Immature Gran % (0.0 - 2.0 %) 0.7 Nucleated RBC % (0 - 0 %) 0.0 Nucleated RBCs # (Man) (0.0 - 0.1 x10 3/uL) 0.00 Diagnosis, Assessment PlanFree Text A P:Gas gangrene right foot and right ankle (Gas in tissues/abscess)Diabetes with peripheral neuropathyMinimal peripheral vascular diseaseLeukocytosisSepsisDKAEdema and arthritis left ankle s/p surgical debridement and washoutCAT scan shows gas in 3 locationsX-rays right foot show no osseous changepacking with Iodoform.IV antibioticsMonitor leukocytosisNIAS: minimal PVD right08/18 wound culture: MRSA (This one is not accurate, it is of skin that was intact)08/19 OR culture: MRSAblood cultures: MRSAOffloading bootICU for nowpulse lavage by physical therapyace wrap compression left ankleMRI: osteo of entire hindfoot essentiallymet with pt and family.had on OR schedule.pt and family ultimately decided on BKA right.consulted dr. Leroy for BKA. spoke with him directly. at 2135 RPT #:[id number] OF REPORTPRProgress [id number]:29:00G.[id number] able for patient hooxTGJZKIKLVOSYPL4956-76-94K62:35:54 [facility] 2022-08-25 18:38:00 [id number]//Vo5H 8BLXsQhdD8VMkCTJy90QAv+VHsYHM AWyepdDA8hW9+YVxFAe8OhYITiN1111-91-13K01:38:00 [facility] ([facility])Endocrinology Progress NoteREPORT#:[id number] REPORT STATUS: SignedDATE:08/25/22 TIME: 1838 PATIENT: KARMA ROWLAND UNIT #: [id number]#: [id number] [facility] AGE: 56 SEX: M ATTEND[facility] Wilbert Ramires [facility] AUTHOR: Braxton Chapin MD * ALL edits or amendments must be made on the electronic/computer document * SubjectivePatient reports: no complaints Objective GeneralVS:Last Documented: Result Date Time Pulse Ox 100 08/25 1800 B/P 153/70 08/25 1800 B/P Mean 101 08/25 1800 Pulse 98 08/25 1800 Resp 17 08/25 1800 Temp 37.1 08/25 1600 O2 Delivery Room air 08/24 1900 O2 Flow Rate 2 08/21 0800 PATIENT WEIGHT: Weight (lb): 160Weight (oz): 15Weight (kg): 72.575 Medications:Active Meds + DC'd Last 24 HrsBupivacaine HCl (MARCAINE 0.5% VIAL) 0 .STK-MED ONE .ROUTE (DC) Gentamicin Sulfate (GARAMYCIN) 0 .STK-MED ONE .ROUTE (DC) Lidocaine HCl (LIDOCAINE HCL/PF) 0 .STK-MED ONE .ROUTE (DC) Fentanyl Citrate (SUBLIMAZE) 0 .STK-MED ONE .ROUTE (DC) Midazolam HCl (VERSED) 0 .STK-MED ONE .ROUTE (DC) Propofol (DIPRIVAN 200MG/20ML INJECTION) 20 ML .STK-MED ONE IV (DC) Heparin Sodium (HEPARIN SODIUM) 0 .STK-MED ONE IV (DC) Ceftaroline Fosamil (TEFLARO) 600 MG Q8H IV (CKD) Sodium Chloride (SODIUM CHLORIDE 0.9%) 100 MLDaptomycin (CUBICIN 500MG) 700 MG Q24H IV (CKD) Sodium Chloride (SODIUM CHLORIDE 0.9%) 50 MLVancomycin HCl (VANCOMYCIN HCL) 1,000 MG ONCE ONE IV (DC) Sodium Chloride (SODIUM CHLORIDE 0.9%) 250 MLFamotidine (PEPCID) 20 MG BID PO Lorazepam (ATIVAN) 1 MG ONCE PRN IV Sodium Chloride (SODIUM CHLORIDE) 0 ASDIR PRN IV Insulin Glargine (Lantus/Semglee) 25 UNIT BEDTIME SUBQ Insulin Human Lispro (HUMALOG) 7 UNIT AC SUBQ Insulin Human Lispro (HUMALOG) 0 AC HS SUBQ Dextrose/Water (DEXTROSE 10% IN WATER) 125 ML ASDIR PRN IV (CKD) Dextrose/Water (DEXTROSE 10% IN WATER) 250 ML ASDIR PRN IV (CKD) Glucagon (GLUCAGON) 1 MG ASDIR PRN IM Dextrose/Water (Dextrose 10% 1,000 mL) 1,000 ML ASDIR IV Acetaminophen (TYLENOL) 650 MG Q6H PRN PRN PO Bisacodyl (DULCOLAX) 10 MG DAILY PRN PRN RECTAL Docusate Sodium (COLACE) 100 MG Q12H PRN PRN PO Ondansetron HCl (ZOFRAN) 4 MG Q6H PRN PRN IV Heparin Sodium (HEPARIN 5000 UNITS/ML) 5,000 UNIT Q8HR SUBQ Miscellaneous Information (VANCOMYCIN PHARMACY TO DOSE) 1 EACH ASDIR IV (DC) Physical ExamGeneral appearance: alert, awake Diagnosis, Assessment PlanHospital course to date:Laboratory Tests: 08/25 08/25 08/25 08/25 1723 1111 1044 1044 Chemistry Potassium (3.4 - 5.0 mEq/L) 4.5 POC Glucose (70 - 110 MG/DL) 132 H 143 H Total Creatine Kinase (46 - 171 Units/L) 17 L Urines Urine Color (YEL/STRAW) YELLOW Urine Appearance (CLEAR) TURBID H Urine pH (5.0 - 7.0) 5.0 Ur Specific [place] (1.005 - 1.030) 1.012 Urine Protein (NEGATIVE) [...] (Auto) (14.0 - 32.0 %) 8.1 L [place] % (Auto) (4.8 - 9.0 %) 4.3 L Eos % (Auto) (0.3 - 3.7 %) 0.5 Baso % (Auto) (0.0 - 2.0 %) 0.1 Neut # (Auto) (2.0 - 7.6 x10 3/uL) 15.44 H Lymph # (Auto) (1.0 - 3.8 x10 3/uL) 1.45 [place] # (Auto) (0.1 - 0.8 x10 3/uL) 0.77 Eos # (Auto) (0.0 - 0.2 x10 3/uL) 0.09 Baso # (Auto) (0.0 - 0.2 x10 3/uL) 0.02 Abs Immat Gran (auto) (0.00 - 0.03 x10 3/uL) 0.13 H Add Manual Diff NO Immature Gran % (0.0 - 2.0 %) 0.7 Nucleated RBC % (0 - 0 %) 0.0 Nucleated RBCs # (Man) (0.0 - 0.1 x10 3/uL) 0.00 Microbiology: Date/Time Procedure - Status Source Growth 08/25 1044 Urine Culture - WKST URINE 08/25 1044 Blood Culture - RECD BLOOD 08/25 1044 Blood Culture - RECD BLOOD Laboratory Tests: 08/20 08/20 08/20 08/20 08/20 1107 0756 0647 0554 0454Chemistry Sodium (134 - 147 mEq/L) 137 Potassium [...] L Albumin (3.4 - 5.0 g/dL) 2.00 LHematology WBC (4.5 - 11.0 x10 3/uL) 22.8 [...] (Auto) (14.0 - 32.0 %) 4.8 L [place] % (Auto) (4.8 - 9.0 %) 2.9 L Eos % (Auto) (0.3 - 3.7 %) 0.0 L Baso % (Auto) (0.0 - 2.0 %) 0.2 Neut # (Auto) (2.0 - 7.6 x10 3/uL) 19.90 H Lymph # (Auto) (1.0 - 3.8 x10 3/uL) 1.10 [place] # (Auto) (0.1 - 0.8 x10 3/uL) 0.66 Eos # (Auto) (0.0 - 0.2 x10 3/uL) 0.00 Baso # (Auto) (0.0 - 0.2 x10 3/uL) 0.04 Abs Immat Gran (auto) (0.00 - 0.03 1.12 Hx10 3/uL) Add Manual Diff NO Immature Gran % (0.0 - 2.0 %) 4.9 H Nucleated RBC % (0 - 0 %) 0.0 Nucleated RBCs # (Man) (0.0 - 0.1 0.00x10 3/uL) 08/20 08/20 08/19 08/19 08/19 0259 [...] 08/19 08/19 08/19 08/19 2223 2131 2014 1727 1652Chemistry Sodium (134 - 147 mEq/L) 133 L [...] 2.03 Albumin (3.4 - 5.0 g/dL) 1.40 LHematology WBC (4.5 - 11.0 x10 3/uL) 20.3 [...] (Auto) (14.0 - 32.0 %) 3.8 L [place] % (Auto) (4.8 - 9.0 %) 3.7 L Eos % (Auto) (0.3 - 3.7 %) 0.0 L Baso % (Auto) (0.0 - 2.0 %) 0.3 Neut # (Auto) (2.0 - 7.6 x10 3/uL) 17.97 H Lymph # (Auto) (1.0 - 3.8 x10 3/uL) 0.76 L [place] # (Auto) (0.1 - 0.8 x10 3/uL) 0.74 Eos # (Auto) (0.0 - 0.2 x10 3/uL) 0.00 Baso # (Auto) (0.0 - 0.2 x10 3/uL) 0.07 Abs Immat Gran (auto) (0.00 - 0.03 0.71 Hx10 3/uL) Add Manual Diff NO Immature Gran % (0.0 - 2.0 %) 3.5 H Nucleated RBC % (0 - 0 %) 0.0 Nucleated RBCs # (Man) (0.0 - 0.1 0.00x10 3/uL) 08/19 08/19 1622 1601 Chemistry POC Glucose (70 - 110 MG/DL) 232 H Urines Urine Color (YEL/STRAW) YELLOW Urine Appearance (CLEAR) SL CLOUDY Urine pH (5.0 - 7.0) 5.0 Ur Specific [place] (1.005 - 1.030) 1.013 Urine Protein (NEGATIVE) [...] (Auto) (14.0 - 32.0 %) 4.3 L [place] % (Auto) (4.8 - 9.0 %) 3.1 L Eos % (Auto) (0.3 - 3.7 %) 0.0 L Baso % (Auto) (0.0 - 2.0 %) 0.3 Neut # (Auto) (2.0 - 7.6 x10 3/uL) 19.17 H Lymph # (Auto) (1.0 - 3.8 x10 3/uL) 0.91 L [place] # (Auto) (0.1 - 0.8 x10 3/uL) 0.67 Eos # (Auto) (0.0 - 0.2 x10 3/uL) 0.01 Baso # (Auto) (0.0 - 0.2 x10 3/uL) 0.07 Abs Immat Gran (auto) (0.00 - 0.03 x10 3/uL) 0.51 H Add Manual Diff NO Immature Gran % (0.0 - 2.0 %) 2.4 H Nucleated RBC % (0 - 0 %) 0.0 Nucleated RBCs # (Man) (0.0 - 0.1 x10 3/uL) 0.00 08/18 08/18 08/18 08/18 2246 2157 1854 [...] 1210 Gram Stain - RES ABSCESS Recent Impressions:ULTRASOUND - DUP LE ART UNI/LTD 08/19 0950 Report Impression - Status: SIGNED Entered: 08/19/2022 1056 IMPRESSION: No sonographic evidence for flow-limiting stenosis in the right lower extremity arterial system. Impression By: [email or web address] - Abraham Ross M.D. Laboratory Tests: 08/18 08/18 08/18 08/18 08/18 1430 1430 1404 1309 1203Chemistry Sodium (134 - 147 mEq/L) 131 L [...] 20.0 L Cholesterol/HDL Ratio (3.43 - 4.97 4.00RATIO) TSH (0.42 - 5.47) 0.96 Free T4 (0.77 - 1.61 ng/dL) 0.7 L 08/18 08/18 08/18 08/18 08/18 1107 1004 0900 0823 0549 Chemistry POC Glucose (70 - 110 MG/DL) 223 H 304 H 405 H 449 H Hemoglobin A1c (4.8 - 6.0 %A1C) 13.4 H 08/18 08/18 08/18 0549 0305 0207Blood Gas Puncture Site R Radial O2 Saturation [...] O2 Delivery Device Room Air FiO2 (%) 21Chemistry Sodium (134 - 147 mEq/L) 121 *L [...] 2.34 Albumin (3.4 - 5.0 g/dL) 1.60 LSerology Influenza Type A (PCR) (Negative) Negative Influenza Type B (PCR) (Negative) NegativeToxicology Acetone, Quant (Neg - <20 mg/dL) Large [...] Culture Gram Stain - RES BLOOD Recent Impressions:RADIOLOGY - XR CHEST 2 V 08/18 0201 Report Impression - Status: SIGNED Entered: 08/18/2022 0317 IMPRESSION: Ill-defined somewhat nodular opacity measuring 3.2 cm laterally in the right mid lung suspicious for rounded pneumonia given provided history, but underlying neoplasm can not be excluded. Followup radiographs are recommended after appropriate treatment in order to document complete resolution and exclude an underlying process or neoplasm. Impression By: [email or web address] - Dom Adams M.D.RADIOLOGY - XR FOOT 3 + V RT 08/18 0238 Report Impression - Status: SIGNED Entered: 08/18/2022 0358 IMPRESSION: No acute osseous findings. No convincing evidence for osteomyelitis. MRI is more sensitive for detecting osteomyelitis.Impression By: Ankur Ladd M.D.CAT SCAN - CT ABD PELVIS W/CONT 08/18 0339 Report Impression - Status: SIGNED Entered: 08/18/2022 0552 IMPRESSION: 3.3 cm hypodensity in the left posterior prostate or seminal vesicle. This could represent an abscess. Contrast-enhanced MRI of the pelvis would be helpful for further evaluation.No acute intra-abdominal findings otherwise.Impression By: Ankur Ladd M.D.CAT SCAN - CT LOWER EXTRM W/O C RT 08/18 0645 Report Impression - Status: SIGNED Entered: 08/18/202216 IMPRESSION: Extensive soft tissue edema with mottled gas in the subcutaneous and intramuscular compartments of the foot compatible with gas-forming infection. Disease extends into the visualized distal leg. Impression By: Jamel Dorantes M.D. 1. 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 DKA3. Cellulitis and gangrene of the right foot.4. Sepsis5. Altered mental status6. High LFTsBlood sugar 162-143 mg/dL.A gap 5HbA1c 13.4%White count 17.9Sodium 121.Adjust insulin dose.Wound care and IV antibiotics. at 1840 RPT #:[id number] OF REPORTPRProgress [id number]:38:00G.[id number] able for patient fbnfDDCGUQDERLYCGM8874-73-39N71:41:12 [facility] 2022-08-25 16:09:00 [id number] /Sc2U2NEPnYKAR7y2DKe3rQ5Acsg8 LcCaehN+1E98TquMuMI3+2QTMja2420-91-83U29:09:00 [facility] ([facility])Infectious Dis. Progress NoteREPORT#:[id number] REPORT STATUS: SignedDATE:08/25/22 TIME: 1609 PATIENT: KARMA ROWLAND UNIT #: [id number]#: [id number] [facility] AGE: 56 SEX: M ATTEND: Wilbert Ramires MDA AUTHOR: Merry Wolff MD * ALL edits or amendments must be made on the electronic/computer document * SubjectiveChief complaint:Follow-up on MRSA bacteremia, right lower extremity necrotizing soft tissueinfection.HPI:PT is a 56yr old male with history of diabetes mellitus type 2, hypertension whowas admitted with altered mental status and right-sided foot infection. According to him, he noticed a blister on his right foot around 3 days prior to presentation. His foot got progressively more swollen and erythema extended proximally to his lateral foot and ankle. CT abdomen and pelvis with contrast is concerning for possible prostate abscess. CT of lower extremity without contrast shows extensive soft tissue edema with mottled gas in the subcutaneous and intramuscular compartments of the foot, compatible with gas-forming infection. Patient's blood cultures have come back positive for MRSA in 2 out of 2 sets. PT has had persistent (+)Ve cx for MRSA 08/18- 08/22. He underwent a debridement of his foot on 08/19 and cx grew MRSA. PT was started on Vancomycin and clindamycin on 08/18. His MRI showed a prostate abscess. 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 PT is afebrile, his WBX is 17.9, he is awake and alert. at the bedside Portions of this section were scribed by Jill Quintero on 08/25/22 at 2004 Objective GeneralVS/I O:Vital Signs Date Temp Pulse Resp B/P B/P Mean Pulse Ox FiO2 04/02-/03 97.9-98.6 91-107 14-23 117-162/56-74 80-106 98-100 Last Documented: Result Date Time Temp 98.6 04/03 0800 Pulse Ox 98 04/03 0400 B/P 138/64 04/03 0400 B/P Mean 88 04/03 0400 Pulse 91 04/03 0400 Resp 15 04/03 0400 O2 Delivery Room air / 1900 O2 Flow Rate 2 08/21 0800 Vital Signs: Date Time Temp Pulse Resp B/P B/P Pulse O2 O2 Flow FiO2 Mean Ox Delivery Rate 04/03 0800 [...] 08/24 1800 98 18 134/56 85 100 / 1700 96 15 132/64 91 99 24 hour I O ending at 0700: 08/25 0700 08/24 1900 Intake Total 1280 Output Total 700 850 Balance -700 430 Intake, Oral 1280 Number 3 Bowel Movements Output, Urine 700 850 PATIENT WEIGHT: Weight (lb): 160Weight (oz): 15Weight (kg): 72.575 Antibiotic start date:Antibiotic: clindamycinStart Date:08/18-08/25 Antibiotic: vancomycin 08/18-tart Date: Antibiotic: Daptomycin Start Date:08/25 Antibiotic: TeflaroStart Date:08/25 Physical ExamGeneral appearance: alert, awake, orientedWound/incision: Location:right foot currently dressedHead/Eyes: atraumatic, normocephalicNeck: supple/no meningismus, no JVDCardiovascular: normal heart sounds, regular rate rhythm, no murmurRespiratory: clear to auscultation, aerating well, symmetric expansionAbdomen: non-tender, soft, no distentionExtremities: edema, RLE pitting edema notedNeuro/DIRECTOR OPERATING ROOM: alert, 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 Considered stroke alert: noSkin: lesions, no rashPsychiatry: normal affect, normal mood ResultsFindings/Data:Laboratory Tests 08/25 08/25 08/25 08/25 08/25 1111 1044 1044 0750 0744Chemistry Sodium (134 - 147 mEq/L) 135 Potassium [...] (Auto) (14.0 - 32.0 %) 8.1 L [place] % (Auto) (4.8 - 9.0 %) 4.3 L Eos % (Auto) (0.3 - 3.7 %) 0.5 Baso % (Auto) (0.0 - 2.0 %) 0.1 Neut # (Auto) (2.0 - 7.6 x10 3/uL) 15.44 H Lymph # (Auto) (1.0 - 3.8 x10 3/uL) 1.45 [place] # (Auto) (0.1 - 0.8 x10 3/uL) 0.77 Eos # (Auto) (0.0 - 0.2 x10 3/uL) 0.09 Baso # (Auto) (0.0 - 0.2 x10 3/uL) 0.02 Abs Immat Gran (auto) (0.00 - 0.03 x10 3/uL) 0.13 H Add Manual Diff NO Immature Gran % (0.0 - 2.0 %) 0.7 Nucleated RBC % (0 - 0 %) 0.0 Nucleated RBCs # (Man) (0.0 - 0.1 x10 3/uL) 0.00 Laboratory Tests 08/24 1700 Toxicology Random Vancomycin (mcg/mL) 9.6 Laboratory Tests 08/25 1044 Urines Urine Color (YEL/STRAW) YELLOW Urine Appearance (CLEAR) TURBID H Urine pH (5.0 - 7.0) 5.0 Ur Specific [place] (1.005 - 1.030) 1.012 Urine Protein (NEGATIVE) [...] 08/25 08/25 08/25 08/25 1111 1044 1044 0750Chemistry Sodium (134 - 147 mEq/L) 135 Potassium [...] L Albumin (3.4 - 5.0 g/dL) 1.30 LHematology WBC (4.5 - 11.0 x10 3/uL) 17.9 [...] (Auto) (14.0 - 32.0 %) 8.1 L [place] % (Auto) (4.8 - 9.0 %) 4.3 L Eos % (Auto) (0.3 - 3.7 %) 0.5 Baso % (Auto) (0.0 - 2.0 %) 0.1 Neut # (Auto) (2.0 - 7.6 x10 3/uL) 15.44 H Lymph # (Auto) (1.0 - 3.8 x10 3/uL) 1.45 [place] # (Auto) (0.1 - 0.8 x10 3/uL) 0.77 Eos # (Auto) (0.0 - 0.2 x10 3/uL) 0.09 Baso # (Auto) (0.0 - 0.2 x10 3/uL) 0.02 Abs Immat Gran (auto) (0.00 - 0.03 x10 3/uL) 0.13 H Add Manual Diff NO Immature Gran % (0.0 - 2.0 %) 0.7 Nucleated RBC % (0 - 0 %) 0.0 Nucleated RBCs # (Man) (0.0 - 0.1 x10 3/uL) 0.00Urines Urine Color (YEL/STRAW) YELLOW Urine Appearance (CLEAR) TURBID H Urine pH (5.0 - 7.0) 5.0 Ur Specific [place] (1.005 - 1.030) 1.012 Urine Protein (NEGATIVE) [...] 08/24 08/23 08/23 0749 0630 0307 2058 1930Chemistry Sodium (134 - 147 mEq/L) 133 L [...] L Albumin (3.4 - 5.0 g/dL) 1.50 LHematology WBC (4.5 - 11.0 x10 3/uL) 16.3 [...] (Auto) (14.0 - 32.0 %) 7.7 L [place] % (Auto) (4.8 - 9.0 %) 4.7 L Eos % (Auto) (0.3 - 3.7 %) 0.6 Baso % (Auto) (0.0 - 2.0 %) 0.1 Neut # (Auto) (2.0 - 7.6 x10 3/uL) 13.99 H Lymph # (Auto) (1.0 - 3.8 x10 3/uL) 1.25 [place] # (Auto) (0.1 - 0.8 x10 3/uL) 0.76 Eos # (Auto) (0.0 - 0.2 x10 3/uL) 0.09 Baso # (Auto) (0.0 - 0.2 x10 3/uL) 0.02 Abs Immat Gran (auto) (0.00 - 0.03 0.20 Hx10 3/uL) Add Manual Diff NO Immature Gran % (0.0 - 2.0 %) 1.2 Nucleated RBC % (0 - 0 %) 0.0 Nucleated RBCs # (Man) (0.0 - 0.1 0.00x10 3/uL) 08/23 1620 Chemistry POC Glucose (70 - 110 MG/DL) 126 H Microbiology: Date/Time Procedure - Status Source Growth 08/25 1044 Urine Culture - WKST URINE 08/25 1044 Blood Culture - RECD BLOOD 08/25 1044 Blood Culture - RECD BLOOD Medication(s) Ordered:Anti-Infective Agents Sig/Jan Start time Last Medication Dose Route Stop Time Status Admin Ceftaroline Fosamil 600 MG Q8H 08/25 1100 CKD 08/25 Sodium Chloride 100 ML IV 09/01 [...] Sodium 5,000 UNIT Q8HR 08/18 0600 AC 08/25 SUBQ 09/17 0559 0550 Central Nervous System [...] Lispro 7 UNIT AC 08/20 1630 AC 08/24 SUBQ 09/19 1629 1755 Insulin Human Lispro 0 AC HS 08/20 1630 AC 08/24 SUBQ 09/19 1629 0805 Glucagon 1 MG ASDIR PRN 08/20 1530 AC IM 09/19 1529 Microbiology:08/25 1044 URINE: Urine Culture - WKST04/03 1044 BLOOD: Blood Culture - RECD04/03 1044 BLOOD: Blood Culture - RECD03 1730 BLOOD: Blood Culture - RES COAG POS [id number] 1730 BLOOD: Blood Culture Gram Stain - RES08/22 1721 BLOOD: Blood Culture - RES COAG POS NBZAVVOELQAQIT50/31 1721 BLOOD: Blood Culture Gram Stain - RES Portions of this section were scribed by Jill Quintero on 08/26/22 at 1509 Treatment Prophylaxis Treatment ProphylaxisLines: peripheralCVC/PICC documentation:The data below has been imported from nursing documentation. Any exceptions have been noted below under Provider comments. CVC/PICC insertion date/time: Provider comments on imported nursing data: [] Portions of this section were scribed by Jill Quintero on 08/25/22 at 2004 Diagnosis, Assessment PlanFree Text A P:Assessment: *MRSA bacteremia*Severe sepsis due to above*Right lower extremity necrotizing fasciitis-MRI of foot (+)Ve for osteomyelitis-s/p debridement on 08/19*DKA*Prostatic abscess*ERIKA*Hyponatremia*Diabetic neuropathy*Diabetes mellitus type 2*Hypertension -Initial blood cultures from 08/18/2022 positive for MRSA in 2 out of 2 sets.-Repeat blood cultures 08/21/2022 are already positive for MRSA in 2 out of 2 sets, suggesting persistent high-grade bacteremia. -Wound culture also positive for MRSA -TTE 08/18/2022 negative for any obvious vegetations. -Went to the OR 08/19/2022 per podiatry for an I D. Plan: -Discussed the possibility of amputation with patient and family at bedside -Recommend JIMENA. -Repeat blood cultures x2 again today.-Continue to repeat serial blood cultures till bacteremia clears. -D/C clindamycin and vancomycin. -start on DAptomycin and Teflaro-check urine cx Discussed with Dr. Du about MRI report Portions of this section were scribed by Jill Quintero on 08/26/22 at 1510 at 0816 RPT #:[id number] OF REPORTPRProgress [id number]:09:00G.[id number] able for patient bhltWDSSDAFPHOMEXD9015-48-30T50:17:55 [facility] 2022-08-25 15:40:00 [id number] gD9FyHLxLDZnso0nzGPjf3q5GVC0W D2QcVndWedc8Gd0jiTLWCWOq9Uy4456-02-02V16:40:00 [facility] ([facility])Urology Progress NoteREPORT#:[id number] REPORT STATUS: SignedDATE:08/25/22 TIME: 1540 PATIENT: KARMA ROWLAND UNIT #: [id number]#: [id number] [address] AGE: 56 SEX: M ATTEND: Wilbert Ramires MDADM AUTHOR: David Du MD * ALL edits or amendments must be made on the electronic/computer document * SubjectivePatient reports: no complaints Objective GeneralVS/I O:Last Documented: Result Date Time Temp 37.0 08/25 0800 Pulse Ox 98 08/25 0400 B/P 138/64 08/25 0400 B/P Mean 88 08/25 0400 Pulse 91 08/25 0400 Resp 15 08/25 0400 O2 Delivery Room air 08/24 1900 O2 Flow Rate 2 08/21 0800 24 hour I O ending at 0700: 08/25 0700 08/24 1900 Intake Total 1280 Output Total 700 850 Balance -700 430 Intake, Oral 1280 Number 3 Bowel Movements Output, Urine 700 850 PATIENT WEIGHT: Weight (lb): 160Weight (oz): 15Weight (kg): 72.575 Physical ExamGeneral appearance: alert, awakeAbdomen: soft ResultsFindings/Data:Laboratory Tests: 08/25 08/25 08/25 08/25 1111 1044 1044 0750Chemistry Sodium (134 - 147 mEq/L) 135 Potassium [...] L Albumin (3.4 - 5.0 g/dL) 1.30 LHematology WBC (4.5 - 11.0 x10 3/uL) 17.9 [...] (Auto) (14.0 - 32.0 %) 8.1 L [place] % (Auto) (4.8 - 9.0 %) 4.3 L Eos % (Auto) (0.3 - 3.7 %) 0.5 Baso % (Auto) (0.0 - 2.0 %) 0.1 Neut # (Auto) (2.0 - 7.6 x10 3/uL) 15.44 H Lymph # (Auto) (1.0 - 3.8 x10 3/uL) 1.45 [place] # (Auto) (0.1 - 0.8 x10 3/uL) 0.77 Eos # (Auto) (0.0 - 0.2 x10 3/uL) 0.09 Baso # (Auto) (0.0 - 0.2 x10 3/uL) 0.02 Abs Immat Gran (auto) (0.00 - 0.03 x10 3/uL) 0.13 H Add Manual Diff NO Immature Gran % (0.0 - 2.0 %) 0.7 Nucleated RBC % (0 - 0 %) 0.0 Nucleated RBCs # (Man) (0.0 - 0.1 x10 3/uL) 0.00Urines Urine Color (YEL/STRAW) YELLOW Urine Appearance (CLEAR) TURBID H Urine pH (5.0 - 7.0) 5.0 Ur Specific [place] (1.005 - 1.030) 1.012 Urine Protein (NEGATIVE) [...] Toxicology Random Vancomycin (mcg/mL) 9.6 Diagnosis, Assessment PlanFree Text A P:Concern for prostate hypodensity. PSA 0.9. prostate cancer or abscess would most likely elevate his PSA. MRI of pelvis shows cystic structure on left near SV and lateral border of prostate. Will attempt aspiration vs unroofing. May not be accessible vis the urethra at 1542 RPT #:[id number] OF REPORTPRProgress [id number]:40:00G.[id number] able for patient pykbTHBHDSOHQHVFHT4452-40-12F82:43:18 [facility] 2022-08-25 11:03:00 [id number] [id number]GU oHUkx5bDJ76hycu54O3W9q2WmMf8524-48-84P96:03:00 [facility] ([facility])Hospitalist Progress NoteREPORT#:[id number] REPORT STATUS: SignedDATE:08/25/22 TIME: 1103 PATIENT: KARMA ROWLAND UNIT #: [id number]#: [id number] [facility] AGE: 56 SEX: M ATTEND: Wilbert Ramires MDADM AUTHOR: Meera Chavira DO * ALL edits or amendments must be made on the electronic/computer document * SubjectiveChief complaint:AMS and right foot infection. s/p extensivedebridement. No acute issues. Pain controlled. Discussed with family at bedside. Review of SystemsAll systems rev neg: except as noted Objective GeneralVS/I O:Vital Signs: Date Time Temp Pulse Resp B/P B/P Pulse O2 O2 Flow FiO2 Mean Ox Delivery Rate / 0400 97.9 91 15 138/64 88 98 [...] Urine 700 850 PATIENT WEIGHT: Weight (lb): 160Weight (oz): 15Weight (kg): 72.575 Medications:Active Meds + DC'd Last 24 HrsCeftaroline Fosamil (TEFLARO) 600 MG Q8H IV (CKD) Sodium Chloride (SODIUM CHLORIDE 0.9%) 100 MLDaptomycin (CUBICIN 500MG) 700 MG Q24H IV (CKD) Sodium Chloride (SODIUM CHLORIDE 0.9%) 50 MLVancomycin HCl (VANCOMYCIN HCL) 1,000 MG ONCE ONE IV (DC) Sodium Chloride (SODIUM CHLORIDE 0.9%) 250 MLFamotidine (PEPCID) 20 MG BID PO Lorazepam (ATIVAN) 1 MG ONCE PRN IV Sodium Chloride (SODIUM CHLORIDE) 0 ASDIR PRN IV Insulin Glargine (Lantus/Semglee) 25 UNIT BEDTIME SUBQ Insulin Human Lispro (HUMALOG) 7 UNIT AC SUBQ Insulin Human Lispro (HUMALOG) 0 AC HS SUBQ Dextrose/Water (DEXTROSE 10% IN WATER) 125 ML ASDIR PRN IV (CKD) Dextrose/Water (DEXTROSE 10% IN WATER) 250 ML ASDIR PRN IV (CKD) Glucagon (GLUCAGON) 1 MG ASDIR PRN IM Dextrose/Water (Dextrose 10% 1,000 mL) 1,000 ML ASDIR IV Acetaminophen (TYLENOL) 650 MG Q6H PRN PRN PO Bisacodyl (DULCOLAX) 10 MG DAILY PRN PRN RECTAL Docusate Sodium (COLACE) 100 MG Q12H PRN PRN PO Ondansetron HCl (ZOFRAN) 4 MG Q6H PRN PRN IV Heparin Sodium (HEPARIN 5000 UNITS/ML) 5,000 UNIT Q8HR SUBQ Miscellaneous Information (VANCOMYCIN PHARMACY TO DOSE) 1 EACH ASDIR IV (DC) Physical ExamGeneral appearance: no acute distress, no respiratory distressHead/Eyes: normocephalicENT: moist mucosal membranesNeck: no JVDCardiovascular: regular rate rhythm, no heaveRespiratory: aerating well, clear to auscultation, symmetric expansion, no distressAbdomen: non-tender, normal bowel sounds, soft, no distentionGenitourinary: no bladder distentionExtremities: R foot in dressingNeuro/DIRECTOR OPERATING ROOM: alert, oriented X 3, 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 Considered stroke alert: noSkin: no rashPsychiatry: normal affect, normal judgment/insight, normal mood ResultsFindings/Data:Laboratory Tests 08/25 08/25 08/24 08/24 08/24 0750 0744 2130 1748 1200Chemistry Sodium (134 - 147 mEq/L) 135 Potassium [...] (Auto) (14.0 - 32.0 %) 8.1 L Len[place] % (Auto) (4.8 - 9.0 %) 4.3 L Eos % (Auto) (0.3 - 3.7 %) 0.5 Baso % (Auto) (0.0 - 2.0 %) 0.1 Neut # (Auto) (2.0 - 7.6 x10 3/uL) 15.44 H Lymph # (Auto) (1.0 - 3.8 x10 3/uL) 1.45 Lenoir # (Auto) (0.1 - 0.8 x10 3/uL) 0.77 Eos # (Auto) (0.0 - 0.2 x10 3/uL) 0.09 Baso # (Auto) (0.0 - 0.2 x10 3/uL) 0.02 Abs Immat Gran (auto) (0.00 - 0.03 x10 3/uL) 0.13 H Add Manual Diff NO Immature Gran % (0.0 - 2.0 %) 0.7 Nucleated RBC % (0 - 0 %) 0.0 Nucleated RBCs # (Man) (0.0 - 0.1 x10 3/uL) 0.00 Laboratory Tests 08/24 1700 Toxicology Random Vancomycin (mcg/mL) 9.6 Diagnosis, Assessment Plan Free Text DxA P NotesFree text DxA P notes:DKADM 2, poorly controlledsevere gas gangrene, right foot/necrotizing fascitisMRSA bacteremiaAKIsevere hyponatremia likely due to combination of severe hyperglycemia and dehydration from DKAsepsis due to foot infectionDM neuropathyHTNanemia, acute due to blood loss Plans: - [...] planning for I D today. Surgery on standby if needed to further debride his lower leg vs amputation. - WBC improving - will type and cross for blood and transfuse if less than 7 gms - d.w at [...] wean off insulin drip. Subq insulin and sliding scale. 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 will likely need wound vac at some point - off [...] transfuse blood for anemia. no overt blood loss - continue IV antibiotics - mobilize - pulse lavage to wound. ? wound vac - continue to monitor blood sugars - floor transfer - d/w 08/24/2022 - follow hgb and transfuse as needed - IV antibiotics - anesthesia consult for MRI - blood sugars ok - pulse lavage - await podiatry eval for wound care - ? wound vac - d.w at bedside 08/25/22Continue abx (Dapto and Teflaro) as per IDUpdated Urology on MRI results, Dr. Du will review images and discuss with family for possible prostate/seminal vesicle abscessCont wound care as per Podiatry, may have debridement today BP and BS well controlled K+ high, repeat levelHgb 7.3 stableDiscussed with at bedside at 1112 RPT #:[id number] OF REPORTPRProgress [id number]:03:00G.[id number] able for patient rabdTEKFLNHRAXQWCQ2936-86-03O70:12:37 [facility] 2022-08-25 10:01:00 [id number] sWDKS1ZnHlaZaBs2cDWVb+BKPh0rb CUp09/DIoa31uaguSW6DGPhK40m6505-63-94D14:01:00 [facility] ([facility])Cardiology Progress NoteREPORT#:[id number] REPORT STATUS: SignedDATE:08/25/22 TIME: 1001 PATIENT: KARMA ROWLAND UNIT #: [id number]#: [id number] [address] [birth year] AGE: 56 SEX: M ATTEND: Wilbert Ramires MDA AUTHOR: Rohit Benitez RESEARCH MANUFACTURING OPERATOR * ALL edits or amendments must be made on the electronic/computer document * Rohit Benitez 08/25/22 1001:SubjectiveChief complaint:foot infection Free Text Subj NotesFree Text Subj Notes:No new symptoms, feeling well. Receiving wound care at bedside. Telemetry: Sinus rhythm Objective GeneralVS/I O:24 hour I O ending at 0700: 08/25 0700 08/24 1900 Intake Total 1280 Output Total 700 850 Balance -700 430 Intake, Oral 1280 Number 3 Bowel Movements Output, Urine 700 850 Vital Signs: Date Time Temp Pulse Resp B/P B/P Pulse O2 O2 Flow FiO2 Mean Ox Delivery Rate 08/25 0400 97.9 91 15 138/64 88 98 / 0200 91 14 117/57 81 99 /03 0100 93 16 120/56 81 98 04/ 0000 97 16 125/58 84 98 04/ 2300 100 15 120/58 81 98 / 2300 98.5 94 15 125/58 80 99 / 2200 107 21 162/74 106 100 04/02 2100 101 17 148/70 101 99 04/1999 99 23 130/60 86 98 04/ 1900 98.4 102 15 162/74 103 98 Room air 04/ 1900 97 18 117/58 83 100 04/02 1800 98 18 134/56 85 100 04/02 1700 96 15 132/64 91 99 04/02 1600 98.2 04/02 1600 96 18 134/60 87 99 04/02 1501 98 21 126/58 83 99 04/02 1401 102 25 159/74 102 99 04/02 1300 100 12 157/72 103 100 04/02 1200 98.1 04/ 1200 98 18 148/72 98 100 04/02 1100 93 12 139/65 94 100 PATIENT WEIGHT: Weight (lb): 160Weight (oz): 15Weight (kg): 72.575 Medications:Active Meds + DC'd Last 24 HrsCeftaroline Fosamil (TEFLARO) 600 MG Q8H IV (CKD) Sodium Chloride (SODIUM CHLORIDE 0.9%) 100 MLDaptomycin (CUBICIN 500MG) 700 MG Q24H IV (CKD) Sodium Chloride (SODIUM CHLORIDE 0.9%) 50 MLVancomycin HCl (VANCOMYCIN HCL) 1,000 MG ONCE ONE IV (DC) Sodium Chloride (SODIUM CHLORIDE 0.9%) 250 MLFamotidine (PEPCID) 20 MG BID PO Lorazepam (ATIVAN) 1 MG ONCE PRN IV Sodium Chloride (SODIUM CHLORIDE) 0 ASDIR PRN IV Insulin Glargine (Lantus/Semglee) 25 UNIT BEDTIME SUBQ Insulin Human Lispro (HUMALOG) 7 UNIT AC SUBQ Insulin Human Lispro (HUMALOG) 0 AC HS SUBQ Dextrose/Water (DEXTROSE 10% IN WATER) 125 ML ASDIR PRN IV (CKD) Dextrose/Water (DEXTROSE 10% IN WATER) 250 ML ASDIR PRN IV (CKD) Glucagon (GLUCAGON) 1 MG ASDIR PRN IM Dextrose/Water (Dextrose 10% 1,000 mL) 1,000 ML ASDIR IV Acetaminophen (TYLENOL) 650 MG Q6H PRN PRN PO Bisacodyl (DULCOLAX) 10 MG DAILY PRN PRN RECTAL Docusate Sodium (COLACE) 100 MG Q12H PRN PRN PO Ondansetron HCl (ZOFRAN) 4 MG Q6H PRN PRN IV Heparin Sodium (HEPARIN 5000 UNITS/ML) 5,000 UNIT Q8HR SUBQ Miscellaneous Information (VANCOMYCIN PHARMACY TO DOSE) 1 EACH ASDIR IV (DC) Physical ExamGeneral appearance: alert, awake, orientedNeck: no bruit/NL carotids, no JVDCardiovascular: CV assessment: abnormal S1/S2, regular rate and rhythm, no ectopyRespiratory: clear to auscultation, no distressLower extremity: LE assessment: edemaNeuro/DIRECTOR OPERATING ROOM: alert, oriented X 3 Considered stroke alert: noWound/incision: Location:right footPsychiatry: normal affect, normal judgment/insight, normal mood ResultsFindings/Data:Laboratory Tests 08/25 08/25 08/24 08/24 08/24 0750 0744 2130 1748 1200Chemistry Sodium (134 - 147 mEq/L) 135 Potassium [...] Ionized Calcium Mitzi (1.09 - 1.30 0.96 LMMOL/L) Phosphorus (2.5 - 4.9 MG/DL) 4.5 Magnesium (1.80 - 2.40 mg/dL) 1.88 Total Bilirubin (0.0 - 1.0 mg/dL) 0.50 AST (15 - 37 IUnit/L) 40 H ALT (30 - 65 IUnit/L) 21 L Total Alk Phosphatase (20 - 125 159 HIUnit/L) Total Protein (6.4 - 8.2 g/dL) 5.6 [...] (Auto) (14.0 - 32.0 %) 8.1 L [place] % (Auto) (4.8 - 9.0 %) 4.3 L Eos % (Auto) (0.3 - 3.7 %) 0.5 Baso % (Auto) (0.0 - 2.0 %) 0.1 Neut # (Auto) (2.0 - 7.6 x10 3/uL) 15.44 H Lymph # (Auto) (1.0 - 3.8 x10 3/uL) 1.45 [place] # (Auto) (0.1 - 0.8 x10 3/uL) 0.77 Eos # (Auto) (0.0 - 0.2 x10 3/uL) 0.09 Baso # (Auto) (0.0 - 0.2 x10 3/uL) 0.02 Abs Immat Gran (auto) (0.00 - 0.03 x10 3/uL) 0.13 H Add Manual Diff NO Immature Gran % (0.0 - 2.0 %) 0.7 Nucleated RBC % (0 - 0 %) 0.0 Nucleated RBCs # (Man) (0.0 - 0.1 x10 3/uL) 0.00 Laboratory Tests 08/24 1700 Toxicology Random Vancomycin (mcg/mL) 9.6 Laboratory Tests 04 0750 Chemistry Magnesium (1.80 - 2.40 mg/dL) 1.88 Diagnosis, Assessment Plan Free Text DxA P NotesFree Text DxA P Notes:Impression: 1. Preop eval/cardiac clearance2. Infected right foot gas gangrene3. DKA4. Sepsis5. Hypertension 6. Anemia Recommendation: Patient presented for evaluation of altered mental status, weakness and elevatedblood sugar. Diagnosed with DKA and sepsis. 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 Known cardiac history of hypertension and hyperlipidemia. Denies prior history of CAD, CHF or arrhythmia. EKG abnormal, NSR with anterior infarct. Vital signs stable. No prior cardiac work-up. -Check echocardiogram-Monitor telemetry for arrhythmia-Monitor blood pressure trend-Wound care and IV antibiotic therapy-Supportive care 08/19: Patient doing better postop, blood pressure control, currently in sinus rhythm, lower extremity artery Doppler negative for any significant PAD, continue current management from primary team and podiatry service, continue monitor on telemetry for arrhythmia postop, supportive care, discussed with patient and family as well as RN, will follow. 08/21: Patient overall doing well, awake and alert today. Blood pressure well controlled. Currently in sinus rhythm to sinus tachycardia, will continue to monitor. Echocardiogram shows LVEF of 55 to 69%, no regional wall motion abnormalities, grade 1 diastolic dysfunction, and mildly dilated LA. continue antibiotic therapy and wound care. Supportive care. Plan of care discussed with patient, RN and Dr. Parham. 08/22: No Significant changes from cardiac standpoint. Vital signs stable. Telemetry monitoring reviewed, sinus rhythm to sinus tachycardia. We will continue monitor, sinus tachycardia likely related to underlying infection. Continue wound care and antibiotic therapy. Supportive care. Plan of care discussed with patient, RN and Dr. Parham. 08/23: Stable cardiac status. Blood pressure and heart rate well controlled. Continue monitor telemetry. Continue wound care. Plan to transfer to floor. Supportive care. Plan of care discussed with patient, RN and Dr. Parham. 08/24: Patient overall doing well, remains stable from cardiac standpoint. Blood pressure and heart rate well controlled. No new events noted on telemetrymonitoring. Remains in sinus rhythm by physical examination. Continue wound care. Supportive care. Plan of care discussed with patient, RN and Dr. Parham. 08/25: Remain stable from cardiac standpoint. Blood pressure well controlled. Currently in sinus rhythm by physical examination. Possible plan for another wound debridement today. Pain management and supportive care. Plan of care discussed with patient, RN and Dr. Parham. Napoleon Parham 08/27/22 0826:Diagnosis, Assessment PlanAdditional comments:Patient was seen and examined at bedside, agree with above assessment and plan as documented by nurse practitioner. Will follow. at 1733 at 0829 RPT #:[id number] OF REPORTPRProgress [id number]:01:00G.[id number] able for patient lggqRCYEUMPNAJNXVF8229-41-30M95:33:58 [facility] 2022-08-24 17:55:00 [id number]+zfw DSB0KcW5OBCjUGmstVwcZuUFPmSoq 1nutHmhMa85MAkyUolfdzfT0lN88610-10-14G94:55:00 [facility])Podiatry Progress NoteREPORT#:[id number] REPORT STATUS: SignedDATE:08/24/22 TIME: 175 PATIENT: KARMA ROWLAND UNIT #: [id number]#: [id number] [address] [birth year] AGE: 56 SEX: M ATTEND: Wilbert Ramires MDA AUTHOR: Rosa Pratt DPM * ALL edits or amendments must be made on the electronic/computer document * SubjectiveChief complaint:seen at bedside,. family memebers next to him denies having any painfoot covered and protected and offloaded drainage noted serosang. increased warmth Objective GeneralVS:Last Documented: Result Date Time Temp 36.7 08/24 1200 Pulse Ox 99 / 0601 B/P 121/62 08/24 0601 B/P Mean 83 08/24 0601 Pulse 100 / 0601 Resp 19 08/24 0601 O2 Delivery Room air 08/23 0400 O2 Flow Rate 2 08/21 0800 PATIENT WEIGHT: Weight (lb): 160Weight (oz): 15Weight (kg): 72.575 Medications:Active Meds + DC'd Last 24 HrsFamotidine (PEPCID) 20 MG BID PO Lorazepam (ATIVAN) 1 MG ONCE PRN IV Sodium Chloride (SODIUM CHLORIDE) 0 ASDIR PRN IV Insulin Glargine (Lantus/Semglee) 25 UNIT BEDTIME SUBQ Insulin Human Lispro (HUMALOG) 7 UNIT AC SUBQ Insulin Human Lispro (HUMALOG) 0 AC HS SUBQ Dextrose/Water (DEXTROSE 10% IN WATER) 125 ML ASDIR PRN IV (CKD) Dextrose/Water (DEXTROSE 10% IN WATER) 250 ML ASDIR PRN IV (CKD) Glucagon (GLUCAGON) 1 MG ASDIR PRN IM Dextrose/Water (Dextrose 10% 1,000 mL) 1,000 ML ASDIR IV Acetaminophen (TYLENOL) 650 MG Q6H PRN PRN PO Bisacodyl (DULCOLAX) 10 MG DAILY PRN PRN RECTAL Docusate Sodium (COLACE) 100 MG Q12H PRN PRN PO Ondansetron HCl (ZOFRAN) 4 MG Q6H PRN PRN IV Heparin Sodium (HEPARIN 5000 UNITS/ML) 5,000 UNIT Q8HR SUBQ Miscellaneous Information (VANCOMYCIN PHARMACY TO DOSE) 1 EACH ASDIR IV (CKD) I O:24 hour I O ending at 0700: 04/02 0700 04/01 1900 Intake Total 480 1610.00 Output Total 750 1950 Balance -270 -340.00 Intake, IV 300.00 Intake, Oral 480 960 Intake, 350 Packed Cells Number 5 Bowel Movements Output, Urine 750 1950 Dietitian nutrition assessmentThe data set between the solid lines has been imported from the dietitian's assessment. BMI Calculated: 25.8Nutrition related diagnosis: Nutrition diagnosis details: Nutrition problem: Nutrition etiology: Nutrition signs and symptoms: Nutrition prescription: Dietitian name: Assessment completed: Physical ExamWound/incision: Location:Right foot to right ankle. DP and PT pulses are very weak essentially nonpalpable. There is severe edema of the right foot to the right ankle, better. There is erythema of the right foot to the right ankle, much better. Not really any ascending lymphangitis past there. Crepitation is at the medial right hindfoot and the dorsal right midfoot are significantly less. There is no longer crepitation at the lateral right ankle. There is some bullae that are peeling medial and lateral. Sensation is greatly decreased on the right foot. base of three wounds fibrotic. sero purulent drainage. bones and tendons exposed.LE vascular pulse assess:Nonpalpable R posterior tibialis, Nonpalpable R dorsalis pedis Considered stroke alert: no ResultsFindings/Data:Laboratory Tests: 08/24 08/24 08/24 08/24 1700 1200 0749 0630Chemistry Sodium (134 - 147 mEq/L) 133 L [...] L Albumin (3.4 - 5.0 g/dL) 1.50 LHematology WBC (4.5 - 11.0 x10 3/uL) 16.3 [...] (Auto) (14.0 - 32.0 %) 7.7 L [place] % (Auto) (4.8 - 9.0 %) 4.7 L Eos % (Auto) (0.3 - 3.7 %) 0.6 Baso % (Auto) (0.0 - 2.0 %) 0.1 Neut # (Auto) (2.0 - 7.6 x10 3/uL) 13.99 H Lymph # (Auto) (1.0 - 3.8 x10 3/uL) 1.25 [place] # (Auto) (0.1 - 0.8 x10 3/uL) 0.76 Eos # (Auto) (0.0 - 0.2 x10 3/uL) 0.09 Baso # (Auto) (0.0 - 0.2 x10 3/uL) 0.02 Abs Immat Gran (auto) (0.00 - 0.03 x10 3/uL) 0.20 H Add Manual Diff NO Immature Gran % (0.0 - 2.0 %) 1.2 Nucleated RBC % (0 - 0 %) 0.0 Nucleated RBCs # (Man) (0.0 - 0.1 x10 3/uL) 0.00Toxicology Random Vancomycin (mcg/mL) 9.6 04/02 04/08/23 0307 205 1930 Chemistry POC Glucose (70 - 110 MG/DL) 189 H 161 H 146 H Results: labs reviewed Diagnosis, Assessment PlanFree Text A P:Gas gangrene right foot and right ankle (Gas in tissues/abscess)Diabetes with peripheral neuropathyMinimal peripheral vascular diseaseLeukocytosisSepsisDKA s/p surgical debridement and washoutCAT scan shows gas in 3 locationsX-rays right foot show no osseous changepacking with Iodoform.IV antibioticsMonitor leukocytosisNIAS: minimal PVD right08/18 wound culture: MRSA (This one is not accurate, it is of skin that was intact)08/19 OR culture: MRSAblood cultures: MRSAOffloading bootICU for nowpulse lavage by physical therapyMRI: osteo of entire hindfoot essentially discussed with Dr. Curtis..... extensive tissue loss and continued positive blood cultures.... if doesnt improve greatly in 1-2 days plan will be BKA. and sister and patient aware 08/24/22seen at [facility] with family at risk for bka. continue wound care iv abx pain control d/w dr pedersen he nhan follow tomorrow at 1823 RPT #:[id number] OF REPORTPRProgress [id number]:55:00G.[id number] able for patient irbeYMFTPGQJPMGDFW3823-21-96Y41:24:50 [facility] 2022-08-24 16:19:00 [id number] [id number] hRbNLi6mzMrUI8uL8OsL6S3R3VD8447-11-52V58:19:00 [facility] ([facility])Cardiology Progress NoteREPORT#:[id number] REPORT STATUS: SignedDATE:08/24/22 TIME: 1619 PATIENT: KARMA ROWLAND UNIT #: [id number]#: [id number] [facility] AGE: 56 SEX: M ATTEND: Wilbert Ramires AUTHOR: Rohit Benitez RESEARCH MANUFACTURING OPERATOR * ALL edits or amendments must be made on the electronic/computer document * NormaroxanaRohit 08/24/22 1619:SubjectiveChief complaint:foot infection Free Text Subj NotesFree Text Subj Notes:No new symptoms, feeling well Telemetry: Sinus rhythm Objective GeneralVS/I O:24 hour I O ending at 0700: 04 0700 04/ 1900 Intake Total 480 1610.00 Output Total 750 1950 Balance -270 -340.00 Intake, IV 300.00 Intake, Oral 480 960 Intake, 350 Packed Cells Number 5 Bowel Movements Output, Urine 750 1950 Vital Signs: Date Time Temp Pulse Resp B/P B/P Pulse O2 O2 Flow FiO2 Mean Ox Delivery Rate 08/24 1200 98.1 / 0800 98.0 / 0601 100 19 121/62 [...] 04/01 2300 93 17 121/56 80 99 04/ 2200 94 17 127/63 89 97 04/01 2100 93 21 137/64 92 100 04/1999 98.2 041999 87 20 121/60 85 99 04/ 1901 95 21 124/60 84 99 04/ 1801 97 23 117/58 83 100 04/ 1700 97 22 119/56 80 98 PATIENT WEIGHT: Weight (lb): 160Weight (oz): 15Weight (kg): 72.575 Medications:Active Meds + DC'd Last 24 HrsVancomycin HCl (VANCOMYCIN HCL) 750 MG ONCE ONE IV (DC) Sodium Chloride (SODIUM CHLORIDE 0.9%) 250 MLFamotidine (PEPCID) 20 MG BID PO Lorazepam (ATIVAN) 1 MG ONCE PRN IV Sodium Chloride (SODIUM CHLORIDE) 0 ASDIR PRN IV Insulin Glargine (Lantus/Semglee) 25 UNIT BEDTIME SUBQ Insulin Human Lispro (HUMALOG) 7 UNIT AC SUBQ Insulin Human Lispro (HUMALOG) 0 AC HS SUBQ Dextrose/Water (DEXTROSE 10% IN WATER) 125 ML ASDIR PRN IV (CKD) Dextrose/Water (DEXTROSE 10% IN WATER) 250 ML ASDIR PRN IV (CKD) Glucagon (GLUCAGON) 1 MG ASDIR PRN IM Dextrose/Water (Dextrose 10% 1,000 mL) 1,000 ML ASDIR IV Acetaminophen (TYLENOL) 650 MG Q6H PRN PRN PO Bisacodyl (DULCOLAX) 10 MG DAILY PRN PRN RECTAL Docusate Sodium (COLACE) 100 MG Q12H PRN PRN PO Ondansetron HCl (ZOFRAN) 4 MG Q6H PRN PRN IV Heparin Sodium (HEPARIN 5000 UNITS/ML) 5,000 UNIT Q8HR SUBQ Miscellaneous Information (VANCOMYCIN PHARMACY TO DOSE) 1 EACH ASDIR IV (CKD) Physical ExamGeneral appearance: alert, awake, orientedNeck: no bruit/NL carotids, no JVDCardiovascular: CV assessment: abnormal S1/S2, regular rate and rhythm, no ectopyRespiratory: clear to auscultation, no distressLower extremity: LE assessment: edemaNeuro/DIRECTOR OPERATING ROOM: alert, oriented X 3 Considered stroke alert: noWound/incision: Location:right footPsychiatry: normal affect, normal judgment/insight, normal mood ResultsFindings/Data:Laboratory Tests 08/24 08/24 08/24 08/24 08/23 1200 0749 0630 0301 8Chemistry Sodium (134 - 147 mEq/L) 133 L [...] L Ionized Calcium Mitzi (1.09 - 1.30 1.09MMOL/L) Phosphorus (2.5 - 4.9 MG/DL) 4.1 Magnesium (1.80 - 2.40 mg/dL) 1.80 Total Bilirubin (0.0 - 1.0 mg/dL) 0.60 AST (15 - 37 IUnit/L) 35 ALT (30 - 65 IUnit/L) 18 L Total Alk Phosphatase (20 - 125 176 HIUnit/L) Total Protein (6.4 - 8.2 g/dL) 5.8 [...] (Auto) (14.0 - 32.0 %) 7.7 L [place] % (Auto) (4.8 - 9.0 %) 4.7 L Eos % (Auto) (0.3 - 3.7 %) 0.6 Baso % (Auto) (0.0 - 2.0 %) 0.1 Neut # (Auto) (2.0 - 7.6 x10 3/uL) 13.99 H Lymph # (Auto) (1.0 - 3.8 x10 3/uL) 1.25 [place] # (Auto) (0.1 - 0.8 x10 3/uL) 0.76 Eos # (Auto) (0.0 - 0.2 x10 3/uL) 0.09 Baso # (Auto) (0.0 - 0.2 x10 3/uL) 0.02 Abs Immat Gran (auto) (0.00 - 0.03 x10 3/uL) 0.20 H Add Manual Diff NO Immature Gran % (0.0 - 2.0 %) 1.2 Nucleated RBC % (0 - 0 %) 0.0 Nucleated RBCs # (Man) (0.0 - 0.1 x10 3/uL) 0.00 Laboratory Tests 08/24 0630 Chemistry Magnesium (1.80 - 2.40 mg/dL) 1.80 Diagnosis, Assessment Plan Free Text DxA P NotesFree Text DxA P Notes:Impression: 1. Preop eval/cardiac clearance2. Infected right foot gas gangrene3. DKA4. Sepsis5. Hypertension 6. Anemia Recommendation: Patient presented for evaluation of altered mental status, weakness and elevatedblood sugar. Diagnosed with DKA and sepsis. 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 Known cardiac history of hypertension and hyperlipidemia. Denies prior history of CAD, CHF or arrhythmia. EKG abnormal, NSR with anterior infarct. Vital signs stable. No prior cardiac work-up. -Check echocardiogram-Monitor telemetry for arrhythmia-Monitor blood pressure trend-Wound care and IV antibiotic therapy-Supportive care 08/19: Patient doing better postop, blood pressure control, currently in sinus rhythm, lower extremity artery Doppler negative for any significant PAD, continue current management from primary team and podiatry service, continue monitor on telemetry for arrhythmia postop, supportive care, discussed with patient and family as well as RN, will follow. 08/21: Patient overall doing well, awake and alert today. Blood pressure well controlled. Currently in sinus rhythm to sinus tachycardia, will continue to monitor. Echocardiogram shows LVEF of 55 to 69%, no regional wall motion abnormalities, grade 1 diastolic dysfunction, and mildly dilated LA. continue antibiotic therapy and wound care. Supportive care. Plan of care discussed with patient, RN and Dr. Parham. 08/22: No Significant changes from cardiac standpoint. Vital signs stable. Telemetry monitoring reviewed, sinus rhythm to sinus tachycardia. We will continue monitor, sinus tachycardia likely related to underlying infection. Continue wound care and antibiotic therapy. Supportive care. Plan of care discussed with patient, RN and Dr. Parham. 08/23: Stable cardiac status. Blood pressure and heart rate well controlled. Continue monitor telemetry. Continue wound care. Plan to transfer to floor. Supportive care. Plan of care discussed with patient, RN and Dr. Parham. 08/24: Patient overall doing well, remains stable from cardiac standpoint. Blood pressure and heart rate well controlled. No new events noted on telemetrymonitoring. Remains in sinus rhythm by physical examination. Continue wound care. Supportive care. Plan of care discussed with patient, RN and Dr. Parham. Napoleon Parham 08/24/22 2216:Diagnosis, Assessment PlanAdditional comments:Patient was seen and examined at bedside, agree with above assessment and plan as documented by nurse practitioner. Will follow. at 1824 at 3816 RPT #:[id number] OF REPORTPRProgress [id number]:19:00G.[id number] able for patient agpdITUBNNJHYJJFXM1642-65-67D60:25:20 [facility] 2022-08-24 15:41:00 [id number] e+8Z5ilO+OQBeh4GFmkuDrCLmt5m2 9JZ2uet4Z6HQqLImd8sD+UIDPsy4859-06-15Z78:41:00 [facility] Prog.Note-VancomycinREPORT#:[id number] REPORT STATUS: SignedDATE:08/24/22 TIME: 1541 PATIENT: KARMA ROWLAND UNIT #: [id number]#: [id number] [address] [birth year] AGE: 56 SEX: M ATTEND: Wilbert Ramires MDA AUTHOR: Tolu Tobias [facility] * ALL edits or amendments must be made on the electronic/computer document * See AddendumVancomycin Vancomycin Medication TherapyGoal: AUC 400-600 mg*hr/LIndication for treatment:Empiric (now confirmed foot infection and bacteremia)Weight: Actual weight (kg): 72.575VS and I/O:Vital Signs Date Temp Pulse Resp B/P B/P Mean Pulse Ox FiO2 08/21-08/24 36.7-37.4 86-107 11-24 89-159/53-73 65-104 90-100 72 hours ending at 0700 08/24 0708/23 1900 08/23 0708/22 0700 1900Intake 480 1610.00 15 650.00 340.00 950.00TotalOutput 750 1050 901 1644 500 650TotalBalance -270 -340.00 -585 -750.00 -160.00 300.00 Intake, IV 300.00 15 50.00 100.00 300.00Intake, 480 960 600 240 650OralIntake, 350PackedCellsNumber 5BowelMovementsOutput, 750 4935 018 1969 500 650UrinePatient 72.575 kgWeight 72 Hour I O Total 08/24 0708/23 0708/22 0700 Intake Total 2090.00 665.00 1290.00 Output Total 2700 2000 1150 Balance -610.00 -1335.00 140.00 Labs:Laboratory Tests: 08/23 08/22 08/21 0320 0830 2015 [...] 3/uL) 16.3 H 17.6 H 19.5 H Microbiology:08/22 173 BLOOD: Blood Culture - RES COAG POS ONPWVHEQZYTEFA25/31 173 BLOOD: Blood Culture Gram Stain - RES08/22 172 BLOOD: Blood Culture - RES08/22 172 BLOOD: Blood Culture Gram Stain - RES Treatment plan: consultRegimen:HPI: Karma Rowland is a 56 yo male with PMH of DM and HTN who presented with AMS, DKA, and a progressively worsening right foot infection. Patient was started empirically on antibiotics. Pharmacy is consulted to dose vancomycin. Requesting Provider: Andrew London MDIndication: EmpiricVancomycin AUC Goal: 400-600 mcg*hr/mLConcomitant Antibiotics: 08/24 A/P: Labs and Vitals: WBC 16.3 (slight decrease) Afebrile with a Tmax of 37.4C over the past 24 hoursRenal Function: BUN/SCr 38/1.3 (decrease from 45/1.5) Urine Output with 2700 mL document over the past 24 hours Estimated CrCl 59 mL/min (using adjusted body weight)Microbiology: 08/22 Blood Cx x2: 2/ Coag Pos Staph (Updated 08/24) 08/21 Blood Cx x2: 06/28 MRSA (vanc VERONICA = 1) 08/19 Abscess Cx from right foot: Many MRSA (vanc VERONICA = 1) 08/18 Blood Cx x2: 2/ MRSA (vanc VERONICA = 1) 08/18 Wound Cx from right foot: Many MRSA (vanc VERONICA = 1) 08/18 Rapid Strep: NegativeImagin/27 TTE: No valvular abnormalities 08/[address]: Extensive soft tissue edema with mottled gas in subcutaneous and intramuscular compartments compatible with gas-forming infection 08/18 Right foot X-ray: No convincing evidence for OMDosing and Monitoring: -Random level this AM was 15.3, appears patient has ERIKA -Random level anticipated to fall <12 tomorrow AM however repeat blood cultures from yesterday are once again positive -BUN, SCr, and UOP have all improved -Patient received one time dose of vancomycin 750 mg yesterday afternoon -Plan right now is to dose vancomycin by level -Level has been ordered to be drawn this afternoon Pharmacy will continue to monitor Thank you for this consult at 1542 Addendum 1: 08/24/22 175 by Lenny Haynes [facility] 08/24 Update: Level @1700 = 9.6 mcg/ml, Ordered vanc 1gm IV x1 dose. at 1750 [facility] #:[id number] OF REPORTPRProgress mfoh7832-99-15P96:41:00G.[id number] able for patient fddoEGIMBOEZRRWXSH1996-78-52W66:42:22 [facility] 2022-08-24 07:33:00 [id number] sSJTkeigWgf/FGvtGS67T/43k9D0X qRVIfWVmDvgl7VyOuBRNe5EbglT1048-49-99D06:33:00 [facility] HospitalHospital[facility] Progress NoteREPORT#:[id number] REPORT STATUS: SignedDATE:08/24/22 TIME: 732 PATIENT: KARMA ROWLAND UNIT #: [id number]#: [id number] [id number]: [birth year] AGE: 56 SEX: M ATTEND: Wilbert Ramires MDADM AUTHOR: Wilbert Ramires MD * ALL edits or amendments must be made on the electronic/computer document * SubjectiveChief complaint:AMS and right foot infection. doing ok. not much pain. s/p extensivedebridement. off insulin drip. toelrating diet. no pain Review of SystemsAll systems rev neg: except as noted Objective GeneralVS/I O:Vital Signs: Date Time Temp Pulse Resp B/P B/P Pulse O2 O2 Flow FiO2 Mean Ox Delivery Rate 08/24 0601 100 19 121/62 83 99 04/ 0500 93 15 123/73 93 100 04/02 [...] 04/01 2100 93 21 137/64 92 100 04/ 2000 98.2 08/24 1999 87 20 121/60 85 99 04/ 1901 95 21 124/60 84 99 04/ 1801 97 23 117/58 83 100 04/ 1700 97 22 119/56 80 98 04/ 1600 99.3 04/ 1600 95 18 129/60 86 98 04/ 1500 97 16 128/60 87 98 04/01 1400 100 16 126/58 84 97 04/01 1300 99 16 132/61 88 97 04/ 1200 98.9 04/ 1200 96 23 139/64 92 97 04/ 1100 94 13 141/65 94 98 04/ 1013 97 04/ 1000 97 13 137/63 90 04/01 0900 100 24 149/66 95 98 04/ 0845 101 20 149/60 97 98 04/ 0830 99 22 159/72 104 98 04/ 0815 99 20 128/61 89 97 04/ 0800 99.2 04/ 0800 94 14 130/60 88 97 04/01 0745 93 13 131/62 89 97 24 hour I O ending at 0700: 04 0700 04 1900 Intake Total 480 1610.00 Output Total 750 1950 Balance -270 -340.00 Intake, IV 300.00 Intake, Oral 480 960 Intake, 350 Packed Cells Number 5 Bowel Movements Output, Urine 750 1950 PATIENT WEIGHT: Weight (lb): 160Weight (oz): 15Weight (kg): 72.575 Medications:Active Meds + DC'd Last 24 HrsVancomycin HCl (VANCOMYCIN HCL) 750 MG ONCE ONE IV (DC) Sodium Chloride (SODIUM CHLORIDE 0.9%) 250 MLFamotidine (PEPCID) 20 MG BID PO Lorazepam (ATIVAN) 1 MG ONCE PRN IV Sodium Chloride (SODIUM CHLORIDE) 0 ASDIR PRN IV Insulin Glargine (Lantus/Semglee) 25 UNIT BEDTIME SUBQ Insulin Human Lispro (HUMALOG) 7 UNIT AC SUBQ Insulin Human Lispro (HUMALOG) 0 AC HS SUBQ Dextrose/Water (DEXTROSE 10% IN WATER) 125 ML ASDIR PRN IV (CKD) Dextrose/Water (DEXTROSE 10% IN WATER) 250 ML ASDIR PRN IV (CKD) Glucagon (GLUCAGON) 1 MG [...] IV Heparin Sodium (HEPARIN 5000 UNITS/ML) 5,000 UNIT Q8HR SUBQ Miscellaneous Information (VANCOMYCIN PHARMACY TO DOSE) 1 EACH ASDIR IV (CKD) Physical ExamGeneral appearance: alert, awake, orientedHead/Eyes: normocephalicENT: moist mucosal membranesNeck: no JVDCardiovascular: regular rate rhythm, no heaveRespiratory: aerating well, clear to auscultation, symmetric expansion, no distressAbdomen: non-tender, normal bowel sounds, soft, no distentionGenitourinary: no bladder distentionExtremities: right foot markedly swollen with violacous disoloratoin of dorsum and lateral area extending to ankle. There were blisters with some blisters wereopen. Neuro/DIRECTOR OPERATING ROOM: alert, oriented X 3, 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 Considered stroke alert: noSkin: no rashPsychiatry: normal affect, normal judgment/insight, normal mood ResultsFindings/Data:Laboratory Tests 08/24 08/24 08/23 08/23 08/23 0630 0307 2058 1930 1620Chemistry Sodium (134 - 147 mEq/L) 133 L [...] L Ionized Calcium Mitzi (1.09 - 1.30 1.09MMOL/L) Phosphorus (2.5 - 4.9 MG/DL) 4.1 Magnesium (1.80 - 2.40 mg/dL) 1.80 Total Bilirubin (0.0 - 1.0 mg/dL) 0.60 AST (15 - 37 IUnit/L) 35 ALT (30 - 65 IUnit/L) 18 L Total Alk Phosphatase (20 - 125 176 HIUnit/L) Total Protein (6.4 - 8.2 g/dL) 5.8 [...] (Auto) (14.0 - 32.0 %) 7.7 L [place] % (Auto) (4.8 - 9.0 %) 4.7 L Eos % (Auto) (0.3 - 3.7 %) 0.6 Baso % (Auto) (0.0 - 2.0 %) 0.1 Neut # (Auto) (2.0 - 7.6 x10 3/uL) 13.99 H Lymph # (Auto) (1.0 - 3.8 x10 3/uL) 1.25 [place] # (Auto) (0.1 - 0.8 x10 3/uL) 0.76 Eos # (Auto) (0.0 - 0.2 x10 3/uL) 0.09 Baso # (Auto) (0.0 - 0.2 x10 3/uL) 0.02 Abs Immat Gran (auto) (0.00 - 0.03 x10 3/uL) 0.20 H Add Manual Diff NO Immature Gran % (0.0 - 2.0 %) 1.2 Nucleated RBC % (0 - 0 %) 0.0 Nucleated RBCs # (Man) (0.0 - 0.1 x10 3/uL) 0.00 Diagnosis, Assessment Plan Free Text DxA P NotesFree text DxA P notes:DKADM 2, poorly controlledsevere gas gangrene, right foot/necrotizing fascitisMRSA bacteremiaAKIsevere hyponatremia likely due to combination of severe hyperglycemia and dehydration from DKAsepsis due to foot infectionDM neuropathyHTNanemia, acute due to blood loss Plans: - [...] planning for I D today. Surgery on standby if needed to further debride his lower leg vs amputation. - WBC improving - will type and cross for blood and transfuse if less than 7 gms - d.w at [...] eval for osteo. - wean off insulin ip. Subq insulin and sliding scale. 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 will likely need wound vac at some point - off [...] transfuse blood for anemia. no overt blood loss - continue IV antibiotics - mobilize - pulse lavage to wound. ? wound vac - continue to monitor blood sugars - floor transfer - d/w 08/24/2022 - follow hgb and transfuse as needed - IV antibiotics - anesthesia consult for MRI - blood sugars ok - pulse lavage - await podiatry eval for wound care - ? wound vac - d.w at bedside at 0734 RPT #:[id number] OF REPORTPRProgress svnm6106-63-64S70:33:00G.[id number] able for patient pgyhPHMKYFKHODCWGQ3467-84-48F70:35:06 [facility] 2022-08-23 15:24:00 [id number]/lCWGtf GYF9HiI8K9CbhGeN1heOV5DupKDPF Jk5pNI0qSR911WEuIjrr/MjyCaC8743-49-48B27:24:00 [facility])Pharmacy Prog.Note-VancomycinREPORT#:[id number] REPORT STATUS: SignedDATE:08/23/22 TIME: 1524 PATIENT: KARMA ROWLAND UNIT #: [id number]#: [id number] [id number]: [birth year] AGE: 56 SEX: M ATTEND: Wilbert Ramires MDADM AUTHOR: Tolu Tobias [facility] * ALL edits or amendments must be made on the electronic/computer document * Vancomycin Vancomycin Medication TherapyGoal: AUC 400-600 mg*hr/LIndication for treatment:Empiric (now confirmed foot infection and bacteremia)Weight: Actual weight (kg): 72.575VS and I/O:Vital Signs Date Temp Pulse Resp B/P B/P Mean Pulse Ox FiO2 08/20-08/23 36.7-38.1 90-108 11-25 89-159/50-76 65-104 90-99 72 hours ending at 0700 08/23 07 1900Intake 15 650.00 340.00 950.00 1290.00 1122.80TotalOutput 600 1400 500 650 1650TotalBalance -585 -750.00 -160.00 300.00 1290.00 -527.20 Intake, IV 15 50.00 100.00 300.00 1190.00 1122.80Intake, 600 240 650 100OralOutput, 600 1400 500 650 1650UrinePatient 72.575 kg 73 kgWeightWeight Bed scaleMeasurementMethod 72 Hour I O Total 08/23 0708/21 0700 Intake Total 665.00 1290.00 2412.80 Output Total 1999 1150 1650 Balance -1335.00 140.00 762.80 Labs:Laboratory Tests: 08/23 08/22 08/21 08/21 08/20 0320 0830 2014 1315 2240 Toxicology Vancomycin Peak (30 - [...] 3/uL) 17.6 H 19.5 H 19.0 H Microbiology:08/22 1730 BLOOD: Blood Culture - RES08/22 1730 BLOOD: Blood Culture Gram Stain - RES08/22 1721 BLOOD: Blood Culture - RES08/22 1721 BLOOD: Blood Culture Gram Stain - RES08/21 0428 BLOOD: Blood Culture - RES STAPH AUREUS,METHICILLIN RESIS08/21 0428 BLOOD: Blood Culture Gram Stain - RES08/21 0428 BLOOD: Blood Culture - RES STAPH AUREUS,METHICILLIN RESIS08/21 0428 BLOOD: Blood Culture Gram Stain - RES Treatment plan: consultRegimen:HPI: Karma Rowland is a 56 yo male with PMH of DM and HTN who presented with AMS, DKA, and a progressively worsening right foot infection. Patient was started empirically on antibiotics. Pharmacy is consulted to dose vancomycin. Requesting Provider: Andrew London MDIndication: EmpiricVancomycin AUC Goal: 400-600 mcg*hr/mLConcomitant Antibiotics: 08/23 A/P: Labs and Vitals: WBC 17.6 (slight decrease) Afebrile with a Tmax of 37.4C over the past 24 hoursRenal Function: BUN/SCr 45/1.5 (increase from 37/1.3) Urine Output with 2000 mL document over the past 24 hours Estimated CrCl 51 mL/min (using adjusted body weight)Microbiology: 08/22 Blood Cx x2: 2/4 Coag Pos Staph (Updated 08/23) 08/21 Blood Cx x2: 2/4 MRSA (vanc VERONICA = 1) 08/19 Abscess Cx from right foot: Many MRSA (vanc VERONICA = 1) 08/18 Blood Cx x2: 2/4 MRSA (vanc VERONICA = 1) 08/18 Wound Cx from right foot: Many MRSA (vanc VERONICA = 1) 08/18 Rapid Strep: NegativeImagin/27 TTE: No valvular abnormalities 08/[address]: Extensive soft tissue edema with mottled gas in subcutaneous and intramuscular compartments compatible with gas-forming infection 08/18 Right foot X-ray: No convincing evidence for OMDosing and Monitoring: -Random level this AM was 15.3, appears patient has ERIKA -Random level anticipated to fall <12 tomorrow AM however repeat blood cultures from yesterday are once again positive -Considering persistent MRSA bacteremia, will go ahead and be aggressive withvancomycin dosing -Have ordered a one time dose of vancomycin 750 mg ( 10 mg/kg) -Will plan to dose by level for now Pharmacy will continue to monitor Thank you for this consult at 1525 RPT #:[id number] OF REPORTPRProgress epki4966-53-09W69:24:00G.[id number] able for patient lfpnHODZWDXUBSAAXQ8197-26-61U00:25:42 [facility] 2022-08-23 09:47:00 [id number]/c 75ml7n/qcbGBFdiIeghK1LlfALzUj qALuXe9qeD2Ljrd7xlz6XYw7Snm7607-21-44L95:47:00 [facility])Cardiology Progress NoteREPORT#:[id number] REPORT STATUS: SignedDATE:08/23/22 TIME: 946 PATIENT: KARMA ROWLAND UNIT #: [id number]#: [id number] [address] AGE: 56 SEX: M ATTEND: Wilbert Ramires [facility] AUTHOR: Rohit Benitez [employer] * ALL edits or amendments must be made on the electronic/computer document * Rohit Benitez 08/23/22 0947:SubjectiveChief complaint:foot infection Free Text Subj NotesFree Text Subj Notes:Patient seen and evaluated. Overall doing well, receiving wound care today. Nonew cardiac complaint. Telemetry sinus rhythm Objective GeneralVS/I O:24 hour I O ending at 0700: 08/23 0700 08/22 1900 Intake Total 15 650.00 Output Total 600 1400 Balance -585 -750.00 Intake, IV 15 50.00 Intake, Oral 600 Output, Urine 600 1400 Vital Signs: Date Time Temp Pulse Resp B/P B/P Pulse O2 O2 Flow FiO2 Mean Ox Delivery Rate 08/23 0900 100 24 149/66 95 98 08/23 0845 101 20 149/60 97 98 04/01 0830 99 22 159/72 104 98 04/01 0815 99 20 128/61 89 97 04/01 0800 99.2 04/01 0800 94 14 130/60 88 97 04/01 0745 93 13 131/62 89 97 04/01 0730 93 12 132/63 91 98 04/01 0715 100 15 142/65 93 97 04/01 0700 93 13 114/58 81 98 04/01 0600 94 13 119/58 82 97 04/01 0500 96 13 123/58 83 97 04/01 0443 96 14 96 04/01 0400 99.4 Room air 04/01 0400 97 16 118/56 81 96 04/01 [...] 132/64 88 96 PATIENT WEIGHT: Weight (lb): 160Weight (oz): 15Weight (kg): 72.575 Medications:Active Meds + DC'd Last 24 HrsFamotidine (PEPCID) 20 MG BID PO Lorazepam (ATIVAN) 1 MG ONCE PRN IV Sodium Chloride (SODIUM CHLORIDE) 0 ASDIR PRN IV Insulin Glargine (Lantus/Semglee) 25 UNIT BEDTIME SUBQ Insulin Human Lispro (HUMALOG) 7 UNIT AC SUBQ Insulin Human Lispro (HUMALOG) 0 AC HS SUBQ Dextrose/Water (DEXTROSE 10% IN WATER) 125 ML ASDIR PRN IV (CKD) Dextrose/Water (DEXTROSE 10% IN WATER) 250 ML ASDIR PRN IV (CKD) Glucagon (GLUCAGON) 1 MG [...] (DC) Heparin Sodium (HEPARIN 5000 UNITS/ML) 5,000 UNIT Q8HR SUBQ Miscellaneous Information (VANCOMYCIN PHARMACY TO DOSE) 1 EACH ASDIR IV (CKD) Physical ExamGeneral appearance: alert, awake, orientedNeck: no bruit/NL carotids, no JVDCardiovascular: CV assessment: abnormal S1/S2, regular rate and rhythm, no ectopyRespiratory: clear to auscultation, no distressLower extremity: LE assessment: edemaNeuro/DIRECTOR OPERATING ROOM: alert, oriented X 3 Considered stroke alert: noWound/incision: Location:right footPsychiatry: normal affect, normal judgment/insight, normal mood ResultsFindings/Data:Laboratory Tests 08/23 08/23 08/22 08/22 08/22 0812 0320 1942 1633 1148Chemistry Sodium (134 - 147 mEq/L) 133 L [...] Ionized Calcium Mitzi (1.09 - 1.30 1.06 LMMOL/L) Phosphorus (2.5 - 4.9 MG/DL) 4.7 Magnesium (1.80 - 2.40 mg/dL) 1.71 L Total Bilirubin (0.0 - 1.0 mg/dL) 0.80 AST (15 - 37 IUnit/L) 36 ALT (30 - 65 IUnit/L) 19 L Total Alk Phosphatase (20 - 125 163 HIUnit/L) Total Protein (6.4 - 8.2 g/dL) 5.8 L Albumin (3.4 - 5.0 g/dL) 1.60 L Laboratory Tests 08/23 035 Hematology WBC (4.5 - 11.0 x10 3/uL) [...] Add Manual Diff YES Laboratory Tests 08/23 032 Toxicology Random Vancomycin (mcg/mL) 15.3 Laboratory Tests 08/23 032 Chemistry Magnesium (1.80 - 2.40 mg/dL) 1.71 L Diagnosis, Assessment Plan Free Text DxA P NotesFree Text DxA P Notes:Impression: 1. Preop eval/cardiac clearance2. Infected right foot gas gangrene3. DKA4. Sepsis5. Hypertension 6. Anemia Recommendation: Patient presented for evaluation of altered mental status, weakness and elevatedblood sugar. Diagnosed with DKA and sepsis. 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 Known cardiac history of hypertension and hyperlipidemia. Denies prior history of CAD, CHF or arrhythmia. EKG abnormal, NSR with anterior infarct. Vital signs stable. No prior cardiac work-up. -Check echocardiogram-Monitor telemetry for arrhythmia-Monitor blood pressure trend-Wound care and IV antibiotic therapy-Supportive care 08/19: Patient doing better postop, blood pressure control, currently in sinus rhythm, lower extremity artery Doppler negative for any significant PAD, continue current management from primary team and podiatry service, continue monitor on telemetry for arrhythmia postop, supportive care, discussed with patient and family as well as RN, will follow. 08/21: Patient overall doing well, awake and alert today. Blood pressure well controlled. Currently in sinus rhythm to sinus tachycardia, will continue to monitor. Echocardiogram shows LVEF of 55 to 69%, no regional wall motion abnormalities, grade 1 diastolic dysfunction, and mildly dilated LA. continue antibiotic therapy and wound care. Supportive care. Plan of care discussed with patient, RN and Dr. Parham. 08/22: No Significant changes from cardiac standpoint. Vital signs stable. Telemetry monitoring reviewed, sinus rhythm to sinus tachycardia. We will continue monitor, sinus tachycardia likely related to underlying infection. Continue wound care and antibiotic therapy. Supportive care. Plan of care discussed with patient, RN and Dr. Parham. 08/23: Stable cardiac status. Blood pressure and heart rate well controlled. Continue monitor telemetry. Continue wound care. Plan to transfer to floor. Supportive care. Plan of care discussed with patient, RN and Dr. Parham. Napoleon Parham 08/24/22 2216:Diagnosis, Assessment PlanAdditional comments:Patient was seen and examined at bedside, agree with above assessment and plan as documented by nurse practitioner. Will follow. at 1700 at 8929 [facility] #:[id number] OF REPORTPRProgress kzhd1634-67-67D42:47:00G.[id number] able for patient mbbbHDGZAXKGDLLKEH3924-67-27X38:00:55 [facility] 2022-08-23 08:08:00 [id number] kgvWDtUwDLRXcAb+9swAntdJmKJKL CMADMB6RAIedCMedAu9sBZF8lHa2174-71-84K07:08:00 [facility] ([facility])Hospitalist Progress NoteREPORT#:[id number] REPORT STATUS: SignedDATE:08/23/22 TIME: 0808 PATIENT: KARMA ROWLAND UNIT #: [id number]#: [id number] [address] AGE: 56 SEX: M ATTEND: Wilbert Ramires MDADM AUTHOR: Wilbert Ramires MD * ALL edits or amendments must be made on the electronic/computer document * SubjectiveChief complaint:AMS and right foot infection. doing ok. not much pain. s/p extensivedebridement. off insulin drip. toelrating diet. no pain Review of SystemsAll systems rev neg: except as noted Objective GeneralVS/I O:Vital Signs: Date Time Temp Pulse Resp B/P B/P Pulse O2 O2 Flow FiO2 Mean Ox Delivery Rate 08/23 0600 94 13 119/58 82 97 08/23 0500 96 13 123/58 83 97 08/23 0443 96 14 96 04 0400 99.4 Room air 08/23 0400 97 16 118/56 81 96 04 0300 96 16 132/60 86 97 08/23 0200 98 19 124/56 81 97 08/23 0100 97 15 116/58 81 96 04/ 0009 98 13 98 04/ 0000 99.0 Room air 08/23 0000 97 14 126/59 85 96 08/22 [...] Urine 600 1400 PATIENT WEIGHT: Weight (lb): 160Weight (oz): 15Weight (kg): 72.575 Medications:Active Meds + DC'd Last 24 HrsFamotidine (PEPCID) 20 MG BID PO Lorazepam (ATIVAN) 1 MG ONCE PRN IV Sodium Chloride (SODIUM CHLORIDE) 0 ASDIR PRN IV Insulin Glargine (Lantus/Semglee) 25 UNIT BEDTIME SUBQ Insulin Human Lispro (HUMALOG) 7 UNIT AC SUBQ Insulin Human Lispro (HUMALOG) 0 AC HS SUBQ Dextrose/Water (DEXTROSE 10% IN WATER) 125 ML ASDIR PRN IV (CKD) Dextrose/Water (DEXTROSE 10% IN WATER) 250 ML ASDIR PRN IV (CKD) Glucagon (GLUCAGON) 1 MG [...] (DC) Heparin Sodium (HEPARIN 5000 UNITS/ML) 5,000 UNIT Q8HR SUBQ Miscellaneous Information (VANCOMYCIN PHARMACY TO DOSE) 1 EACH ASDIR IV (CKD) Physical ExamGeneral appearance: alert, awake, orientedHead/Eyes: normocephalicENT: moist mucosal membranesNeck: no JVDCardiovascular: regular rate rhythm, no heaveRespiratory: aerating well, clear to auscultation, symmetric expansion, no distressAbdomen: non-tender, normal bowel sounds, soft, no distentionGenitourinary: no bladder distentionExtremities: right foot markedly swollen with violacous disoloratoin of dorsum and lateral area extending to ankle. There were blisters with some blisters wereopen. Neuro/DIRECTOR OPERATING ROOM: alert, oriented X 3, 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 Considered stroke alert: noSkin: no rashPsychiatry: normal affect, normal judgment/insight, normal mood ResultsFindings/Data:Laboratory Tests 08/23 08/22 08/22 08/22 0320 1942 [...] Diagnosis, Assessment Plan Free Text DxA P NotesFree text DxA P notes:DKADM 2, poorly controlledsevere gas gangrene, right foot/necrotizing fascitisMRSA bacteremiaAKIsevere hyponatremia likely due to combination of severe hyperglycemia and dehydration from DKAsepsis due to foot infectionDM neuropathyHTNanemia, acute due to blood loss Plans: - [...] planning for I D today. Surgery on standby if needed to further debride his lower leg vs amputation. - WBC improving - will type and cross for blood and transfuse if less than 7 gms - d.w at [...] wean off insulin drip. Subq insulin and sliding scale. 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 will likely need wound vac at some point - off [...] transfuse blood for anemia. no overt blood loss - continue IV antibiotics - mobilize - pulse lavage to wound. ? wound vac - continue to monitor blood sugars - floor transfer - d/w at 0809 RPT #:[id number] OF REPORTPRProgress [id number]:08:00G.[id number] able for patient ktubMZTRRTJSUSNNSC2528-72-53R37:10:06 [facility] 2022-08-22 21:25:00 [id number] 94F1/NCu+UQz55/gazTtOnelyZ1p6 GgF3aXp8l1SiGuHw0v53gRoGmnv9695-63-31T20:25:00 [facility] ([facility])Podiatry Progress NoteREPORT#:[id number] REPORT STATUS: SignedDATE:08/22/22 TIME: 2124 PATIENT: KARMA ROWLAND UNIT #: [id number]#: [id number] [id number]: [birth year] AGE: 56 SEX: M ATTEND: Wilbert Ramires MDADM AUTHOR: Liam Pedersen DPM * ALL edits or amendments must be made on the electronic/computer document * SubjectiveChief complaint:my foot is red and swollenPatient reports: no diarrhea, no fatigue, no heartburn, no itchingComments:pt with little pain pt in ICU Objective GeneralVS:Last Documented: Result Date Time O2 Delivery Room air 08/23 1999 Temp 37.2 08/23 1999 Pulse Ox 97 08/22 1800 B/P 105/59 08/22 1800 B/P Mean 78 08/22 1800 Pulse 93 08/22 1800 Resp 14 08/22 1800 O2 Flow Rate 2 08/21 0800 PATIENT WEIGHT: Weight (lb): 160Weight (oz): 15Weight (kg): 72.575 Medications:Active Meds + DC'd Last 24 HrsFamotidine (PEPCID) 20 MG BID PO Lorazepam (ATIVAN) 1 MG ONCE PRN IV Sodium Chloride (SODIUM CHLORIDE) 0 ASDIR PRN IV Insulin Glargine (Lantus/Semglee) 25 UNIT BEDTIME SUBQ Insulin Human Lispro (HUMALOG) 7 UNIT AC SUBQ Insulin Human Lispro (HUMALOG) 0 AC HS SUBQ Dextrose/Water (DEXTROSE 10% IN WATER) 125 ML ASDIR PRN IV (CKD) Dextrose/Water (DEXTROSE 10% IN WATER) 250 ML ASDIR PRN IV (CKD) Glucagon (GLUCAGON) 1 MG ASDIR PRN IM Dextrose/Water (Dextrose 10% 1,000 mL) 1,000 ML ASDIR IV Vancomycin HCl (VANCOMYCIN HCL) 1,000 MG Q12H IV (DC) Sodium Chloride (SODIUM CHLORIDE 0.9%) 250 MLClindamycin Phosphate (CLEOCIN 900 MG/NS 50 ML) 50 [...] (DC) Heparin Sodium (HEPARIN 5000 UNITS/ML) 5,000 UNIT Q8HR SUBQ Miscellaneous Information (VANCOMYCIN PHARMACY TO DOSE) 1 EACH ASDIR IV (CKD) I O:24 hour I O ending at 0700: 08/22 0700 08/21 1900 Intake Total 340.00 950.00 Output Total 500 650 Balance -160.00 300.00 Intake, IV 100.00 300.00 Intake, Oral 240 650 Output, Urine 500 650 Patient 72.575 kg Weight Dietitian nutrition assessmentThe data set between the solid lines has been imported from the dietitian's assessment. BMI Calculated: 25.8Nutrition related diagnosis: Nutrition diagnosis details: Nutrition problem: Nutrition etiology: Nutrition signs and symptoms: Nutrition prescription: Dietitian name: Assessment completed: Physical ExamGeneral appearance: alert, awake, orientedWound/incision: Location:Right foot to right ankle. DP and PT pulses are very weak essentially nonpalpable. There is severe edema of the right foot to the right ankle, better. There is erythema of the right foot to the right ankle, much better. Not really any ascending lymphangitis past there. Crepitation is at the medial right hindfoot and the dorsal right midfoot are significantly less. There is no longer crepitation at the lateral right ankle. There is some bullae that are peeling medial and lateral. Sensation is greatly decreased on the right foot. base of three wounds fibrotic. sero purulent drainage. bones and tendons exposed.LE vascular pulse assess:Nonpalpable R posterior tibialis, Nonpalpable R dorsalis pedis Considered stroke alert: no ResultsFindings/Data:Laboratory Tests: 08/22 08/22 08/22 08/22 08/22 1942 [...] (Auto) (14.0 - 32.0 %) 9.0 L Len[place] % (Auto) (4.8 - 9.0 %) 4.8 Eos % (Auto) (0.3 - 3.7 %) 0.4 Baso % (Auto) (0.0 - 2.0 %) 0.1 Neut # (Auto) (2.0 - 7.6 x10 3/uL) 15.98 H Lymph # (Auto) (1.0 - 3.8 x10 3/uL) 1.76 Lenoir # (Auto) (0.1 - 0.8 x10 3/uL) 0.93 H Eos # (Auto) (0.0 - 0.2 x10 3/uL) 0.08 Baso # (Auto) (0.0 - 0.2 x10 3/uL) 0.02 Abs Immat Gran (auto) (0.00 - 0.03 x10 3/uL) 0.70 H Add Manual Diff NO Immature Gran % (0.0 - 2.0 %) 3.6 H Nucleated RBC % (0 - 0 %) 0.0 Nucleated RBCs # (Man) (0.0 - 0.1 x10 3/uL) 0.00 Diagnosis, Assessment PlanFree Text A P:Gas gangrene right foot and right ankle (Gas in tissues/abscess)Diabetes with peripheral neuropathyMinimal peripheral vascular diseaseLeukocytosisSepsisDKA s/p surgical debridement and washoutCAT scan shows gas in 3 locationsX-rays right foot show no osseous changepacking with Iodoform.IV antibioticsMonitor leukocytosisNIAS: minimal PVD right08/18 wound culture: MRSA (This one is not accurate, it is of skin that was intact)08/19 OR culture: MRSAblood cultures: MRSAOffloading bootICU for nowpulse lavage by physical therapyMRI: osteo of entire hindfoot essentially discussed with Dr. Curtis..... extensive tissue loss and continued positive blood cultures.... if doesnt improve greatly in 1-2 days plan will be BKA. and sister and patient aware at 2127 RPT #:[id number] OF REPORTPRProgress cmlt4869-74-17F89:25:00G.[id number] able for patient vthqQULXNGAEAVUNQR9736-60-47P59:28:14 [facility] 2022-08-22 15:34:00 [id number]/fsEG hT+ydU5ifhNnZbDn2htVL+kuWAJ8T in3JTx3z7lc641SnwsScIvmahXT3858-82-85K66:34:00 [facility]Infectious Dis. Progress NoteREPORT#:[id number] REPORT STATUS: SignedDATE:08/22/22 TIME: 1534 PATIENT: KARMA ROWLAND UNIT #: [id number]#: [id number] [address] [birth year] AGE: 56 SEX: M ATTEND: Wilbert Ramires [facility] AUTHOR: Anthony Curtis MD * ALL edits or amendments must be made on the electronic/computer document * SubjectiveChief complaint:Follow-up on MRSA bacteremia, right lower extremity necrotizing soft tissue infection.HPI:Patient is awake and alert. Denies acute or new complaints currently. No majorovernight events. Objective GeneralVS/I O:Vital Signs Date Temp Pulse Resp B/P B/P Mean Pulse Ox FiO2 08/21-08/22 98.7-99.4 95-107 - 89-140/55-70 69-97 90-96 Last Documented: Result Date [...] O2 Flow FiO2 Mean Ox Delivery Rate 08/22 1300 [...] 12 100/58 74 91 08/21 2000 99.4 08/22 1999 103 15 130/64 90 [...] 72.575 kg Weight PATIENT WEIGHT: Weight (lb): 160Weight (oz): 15Weight (kg): 72.575 Physical ExamGeneral appearance: alert, awake, no acute distressWound/incision: Location:right foot currently dressedCardiovascular: normal heart sounds, regular rate rhythm, no murmurRespiratory: clear to auscultation, aerating well, symmetric expansionAbdomen: non-tender, soft, no distentionExtremities: edema, RLE pitting edema notedNeuro/DIRECTOR OPERATING ROOM: alert, 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 Considered stroke alert: noSkin: lesions, no rashPsychiatry: normal affect, normal mood Diagnosis, Assessment PlanFree Text A P:Assessment: Mr. Rowland is a 56-year-old male with history of diabetes mellitus type 2, hypertension who was admitted with altered mental status and right-sidedfoot infection. According to him, he noticed a blister on his right foot around3 days prior to presentation. His foot got progressively more swollen and erythema extended proximally to his lateral foot and ankle. Here, patient was tachycardic and had a leukocytosis of 26.5. CT abdomen and pelvis with contrastis concerning for possible prostate abscess. CT of lower extremity without contrast shows extensive soft tissue edema with mottled gas in the subcutaneous and intramuscular compartments of the foot, compatible with gas-forming infection. Patient's blood cultures have come back positive for MRSA in 2 out of 2 sets. Infectious disease consultation is requested for antimicrobial recommendations. *MRSA bacteremia*Severe sepsis due to above*Right lower extremity necrotizing fasciitis*DKA*Prostatic abscess*ERIKA*Hyponatremia*Diabetic neuropathy*Diabetes mellitus type 2*Hypertension -Fever curve improved; afebrile last 24 hours.-Leukocytosis of 19.5 on today's CBC noted. Overall, unchanged from the day before.-Hemoglobin A1c >14%. -Initial blood cultures from 08/18/2022 positive for MRSA in 2 out of 2 sets.-Repeat blood cultures 08/21/2022 are already positive for MSSA in 2 out of 2 sets, suggesting persistent high-grade bacteremia. -Wound culture also positive for Staphylococcus aureus. -TTE 08/18/2022 negative for any obvious vegetations. -Went to the OR 08/19/2022 per podiatry for an I D. -Seen by urology for prostatic mass versus abscess and had a pelvic MRI earlier today, which suggests prostatic abscess. Plan: -Patient has persistent high-grade MSSA bacteremia. Source is likely right foot/right lower extremity. Prostatic abscess is likely another source as well.-Discussed the possibility of amputation with patient and family at bedside today.-Would recommend unroofing of the prostatic abscess.-Recommend JIMENA. -Repeat blood cultures x2 again today.-Continue to repeat serial blood cultures till bacteremia clears. -Continue clindamycin x 7 days total.-Continue vancomycin. -Further recommendations to follow based upon clinical course. -Discussed with Dr. Pedersen. CURRENT ANTIMICROBIALS:Clindamycin + vancomycin, started 3Day 5 at 1540 RPT #:[id number] OF REPORTPRProgress zrxv2777-18-27C00:34:00G.[id number] able for patient bhjcRUQCZUKVVVEIMU1095-46-08K75:41:20 [facility] 2022-08-22 14:16:00 [id number] fsvwohalRcb+k6YC0FuxGizoNFK3m zTM6mdghblmGpyzNi5dzKNpDl8+7099-18-48H60:16:00 [facility])Pharmacy Prog.Note-VancomycinREPORT#:[id number] REPORT STATUS: SignedDATE:08/22/22 TIME: 1416 PATIENT: KARMA ROWLAND UNIT #: [id number]#: [id number] [facility] AGE: 56 SEX: M ATTEND: Wilbert Ramires [facility] AUTHOR: Tolu Tobias [facility] * ALL edits or amendments must be made on the electronic/computer document * Vancomycin Vancomycin Medication TherapyGoal: AUC 400-600 mg*hr/LIndication for treatment:Empiric (now confirmed foot infection and bacteremia)Weight: Actual weight (kg): 72.575VS and I/O:Vital Signs Date Temp Pulse Resp B/P B/P Mean Pulse Ox FiO2 08/19-08/22 36.5-38.1 66-108 10-27 70-161/44-79 54-113 90-100 72 hours ending at 0700 08/22 0700 08/21 1900 08/21 0700 08/20 1900 08/20 08/19 0700 1900Intake 340.00 950.00 1290.00 1122.80 1412.10 2437.40TotalOutput 500 650 1650TotalBalance -160.00 300.00 1290.00 -527.20 1412.10 2437.40 Intake, IV 100.00 300.00 1190.00 1122.80 1412.10 1837.40Intake, 240 650 100 600OralOutput, 500 650 1650UrinePatient 72.575 kg 73 kgWeightWeight Bed scaleMeasurementMethod 72 Hour I O Total 08/22 0700 08/21 0700 08/20 0700 Intake Total 1290.00 2412.80 3849.50 Output Total 1150 1650 Balance 140.00 762.80 3849.50 Labs:Laboratory Tests: 08/22 1315 2240 Toxicology Vancomycin Peak (30 - 40 MCG/ML) 30.7 36.0 Vancomycin Trough (10.0 - 20.0 mcg/mL) 27.2 *H Random Vancomycin (mcg/mL) 19.7 Laboratory Test : 08/22 08/21 08/20 08/19 08/19 0440 0428 0554 2310 1652 Chemistry BUN (7 - 18 mg/dL) 37 H 37 H 44 H 41 H 45 H Creatinine (0.6 - 1.3 mg/dL) 1.3 1.2 1.2 1.2 1.2 Hematology WBC (4.5 - 11.0 x10 3/uL) 19.5 H 19.0 H 22.8 H 20.3 H Microbiology:08/22 427 BLOOD: Blood Culture - RES COAG POS COQIQIDXBEYCZK41/30 0428 BLOOD: Blood Culture Gram Stain - RES08/21 0428 BLOOD: Blood Culture - RES COAG POS UXSJRLNMDBAKPG28/30 0428 BLOOD: Blood Culture Gram Stain - RES08/19 1710 BLOOD: Blood Culture - ORD08/19 1710 BLOOD: Blood Culture - ORD08/19 1622 URINE: Urine Culture - COMP Treatment plan: consultRegimen:HPI: Karma Rowland is a 56 yo male with PMH of DM and HTN who presented with AMS, DKA, and a progressively worsening right foot infection. Patient was started empirically on antibiotics. Pharmacy is consulted to dose vancomycin. Requesting Provider: Andrew London MDIndication: EmpiricVancomycin AUC Goal: 400-600 mcg*hr/mLConcomitant Antibiotics: -Clindamycin 900 mg IV q8h 08/22 A/P: Labs and Vitals: WBC 19.5 (relatively unchanged) Febrile with a Tmax of 38.0C over the past 24 hoursRenal Function: BUN/SCr 37/1.3 (relatively unchanged) Urine Output with 1150 mL document over the past 24 hours Estimated CrCl 59 mL/min (using adjusted body weight)Microbiology: 08/21 Blood Cx x2: 2/4 Coag Pos Staph (updated 08/22) 08/19 Abscess Cx from right foot: Many MRSA (vanc VERONICA = 1) 08/18 Blood Cx x2: 2/4 MRSA (vanc VERONICA = 1) 08/18 Wound Cx from right foot: Many MRSA (vanc VERONICA = 1) 08/18 Rapid Strep: NegativeImagin/27 TTE: No valvular abnormalities 08/[address]: Extensive soft tissue edema with mottled gas in subcutaneous and intramuscular compartments compatible with gas-forming infection 08/18 Right foot X-ray: No convincing evidence for OMDosing and Monitoring: -Patient was on a maintenance regimen of vancomycin 1000 mg q12h -Trough collected last night was unexpectedly high at 27.2 mcg/mL -Ordered a repeat level this AM just to double check, level was 19.7 mcg/mL -UOP has decreased, it is possible that patient is starting to have ERIKA -Estimated half life 25 hours but likely longer with ERIKA -Have ordered a repeat level with AM labs. Pharmacy will continue to monitor Thank you for this consult at 1417 RPT #:[id number] OF REPORTPRProgress plvh9370-93-21L81:16:00G.[id number] able for patient nwifSMRMFCVPCRDUIV1336-04-71P58:17:45 [facility] 2022-08-22 10:48:00 [id number] dDoBgNwmAg1ZJCWIiHx2Nkc1Gw+Wg xF9knNnBef6q4+nfLDaZoAh1gGg9192-21-03S25:48:00 [facility] ([facility])Cardiology Progress NoteREPORT#:[id number] REPORT STATUS: SignedDATE:08/22/22 TIME: 1048 PATIENT: KARMA ROWLAND UNIT #: [id number]#: [id number] [address]: [birth year] AGE: 56 SEX: M ATTEND: Wilbert Ramires AUTHOR: Rohit Benitez [employer] * ALL edits or amendments must be made on the electronic/computer document * Rohit Benitez 08/22/22 1048:SubjectiveChief complaint:foot infection Free Text Subj NotesFree Text Subj Notes:Patient seen and evaluated. Resting in bed. Overall doing well without any newcardiac complaint. Telemetry sinus rhythm with sinus tachycardia Objective GeneralVS/I O:24 hour I O ending at 0700: 08/22 0700 08/21 1900 Intake Total 340.00 950.00 Output Total 500 650 Balance -160.00 300.00 Intake, IV 100.00 300.00 Intake, Oral 240 650 Output, Urine 500 650 Patient 160 lb Weight Vital Signs: Date Time Temp Pulse Resp B/P B/P Pulse O2 O2 Flow FiO2 Mean Ox Delivery Rate 08/22 0600 [...] 21 99/56 73 PATIENT WEIGHT: Weight (lb): 160Weight (oz): 15Weight (kg): 72.575 Medications:Active Meds + DC'd Last 24 HrsFamotidine (PEPCID) 20 MG BID PO Lorazepam (ATIVAN) 1 MG ONCE PRN IV Sodium Chloride (SODIUM CHLORIDE) 0 ASDIR PRN IV Insulin Glargine (Lantus/Semglee) 25 UNIT BEDTIME SUBQ Insulin Human Lispro (HUMALOG) 7 UNIT AC SUBQ Insulin Human Lispro (HUMALOG) 0 AC HS SUBQ Dextrose/Water (DEXTROSE 10% IN WATER) 125 ML ASDIR PRN IV (CKD) Dextrose/Water (DEXTROSE 10% IN WATER) 250 ML ASDIR PRN IV (CKD) Glucagon (GLUCAGON) 1 MG ASDIR PRN IM Dextrose/Water (Dextrose 10% 1,000 mL) 1,000 ML ASDIR IV Vancomycin HCl (VANCOMYCIN HCL) 1,000 MG Q12H IV (DC) Sodium Chloride (SODIUM CHLORIDE 0.9%) 250 MLClindamycin Phosphate (CLEOCIN 900 MG/NS 50 ML) 50 [...] NASAL Heparin Sodium (HEPARIN 5000 UNITS/ML) 5,000 UNIT Q8HR SUBQ Miscellaneous Information (VANCOMYCIN PHARMACY TO DOSE) 1 EACH ASDIR IV (CKD) Physical ExamGeneral appearance: alert, awake, orientedNeck: no bruit/NL carotids, no JVDCardiovascular: CV assessment: abnormal S1/S2, regular rate and rhythm, no ectopyRespiratory: clear to auscultation, no distressLower extremity: LE assessment: edemaNeuro/DIRECTOR OPERATING ROOM: alert, oriented X 3 Considered stroke alert: noWound/incision: Location:right footPsychiatry: normal affect, normal judgment/insight, normal mood ResultsFindings/Data:Laboratory Tests 08/22 08/22 08/21 08/21 08/21 0747 439 2014 1621 1108Chemistry Sodium (134 - 147 mEq/L) 133 L [...] Ionized Calcium Mitzi (1.09 - 1.30 1.00 LMMOL/L) Phosphorus (2.5 - 4.9 MG/DL) 3.4 Magnesium [...] (Auto) (14.0 - 32.0 %) 9.0 L Len[place] % (Auto) (4.8 - 9.0 %) 4.8 Eos % (Auto) (0.3 - 3.7 %) 0.4 Baso % (Auto) (0.0 - 2.0 %) 0.1 Neut # (Auto) (2.0 - 7.6 x10 3/uL) 15.98 H Lymph # (Auto) (1.0 - 3.8 x10 3/uL) 1.76 [place] # (Auto) (0.1 - 0.8 x10 3/uL) 0.93 H Eos # (Auto) (0.0 - 0.2 x10 3/uL) 0.08 Baso # (Auto) (0.0 - 0.2 x10 3/uL) 0.02 Abs Immat Gran (auto) (0.00 - 0.03 x10 3/uL) 0.70 H Add Manual Diff NO Immature Gran % (0.0 - 2.0 %) 3.6 H Nucleated RBC % (0 - 0 %) 0.0 Nucleated RBCs # (Man) (0.0 - 0.1 x10 3/uL) 0.00 Laboratory Tests 08/22 1315 Toxicology Vancomycin Peak (30 - 40 MCG/ML) 30.7 Vancomycin Trough (10.0 - 20.0 mcg/mL) 27.2 *H Random Vancomycin (mcg/mL) 19.7 Laboratory Tests 08/22 0440 Chemistry Magnesium (1.80 - 2.40 mg/dL) 1.70 L Radiology data:Recent Impressions:MAGNETIC RESONANCE IMAGING - MRI PELVIS W/O CON 08/22 2115 Report Impression - Status: SIGNED Entered: 08/22/2022829 IMPRESSION: 1. Markedly limited examination by motion artifact abdominal breathing, severely lowering sensitivity and specificity of the study. 2. Roughly 4.7 cm area of liquefaction in the left seminal vesicle suspicious for abscess, inseparable from the left posterolateral prostate capsule and peripheral zone. Recommend MR follow-up after antibiotic therapy to assess for evolution.3. Normal size prostate with otherwise preserved transitional zone and right peripheral zone signal. 4. No pelvic adenopathy or free fluid. 5. Unremarkable bladder. Impression By: TipERR2 - Cezar Wilbert-Anish, M.D.MAGNETIC RESONANCE IMAGING - MRI LOW EXT W/O CONT RT 08/22 2115 Report Impression - Status: SIGNED Entered: 08/21/2022 3007 Impression:1. Large areas of deep ulceration of the medial and lateral soft tissues of the hindfoot.2. Findings compatible with osteomyelitis of the talus, calcaneus, and navicular bone.3. Lobulated, ill-defined 3.2 x 9.7 x 1.7 cm fluid collection in the plantar musculature of the foot. 4. 1.2 x 1.9 x 0.6 cm dorsal skin blister of the forefoot. Impression By: Hola Austin M.D. Diagnosis, Assessment Plan Free Text DxA P NotesFree Text DxA P Notes:Impression: 1. Preop eval/cardiac clearance2. Infected right foot gas gangrene3. DKA4. Sepsis5. Hypertension 6. Anemia Recommendation: Patient presented for evaluation of altered mental status, weakness and elevatedblood sugar. Diagnosed with DKA and sepsis. 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 Known cardiac history of hypertension and hyperlipidemia. Denies prior history of CAD, CHF or arrhythmia. EKG abnormal, NSR with anterior infarct. Vital signs stable. No prior cardiac work-up. -Check echocardiogram-Monitor telemetry for arrhythmia-Monitor blood pressure trend-Wound care and IV antibiotic therapy-Supportive care 08/19: Patient doing better postop, blood pressure control, currently in sinus rhythm, lower extremity artery Doppler negative for any significant PAD, continue current management from primary team and podiatry service, continue monitor on telemetry for arrhythmia postop, supportive care, discussed with patient and family as well as RN, will follow. 08/21: Patient overall doing well, awake and alert today. Blood pressure well controlled. Currently in sinus rhythm to sinus tachycardia, will continue to monitor. Echocardiogram shows LVEF of 55 to 69%, no regional wall motion abnormalities, grade 1 diastolic dysfunction, and mildly dilated LA. continue antibiotic therapy and wound care. Supportive care. Plan of care discussed with patient, RN and Dr. Parham. 08/22: No Significant changes from cardiac standpoint. Vital signs stable. Telemetry monitoring reviewed, sinus rhythm to sinus tachycardia. We will continue monitor, sinus tachycardia likely related to underlying infection. Continue wound care and antibiotic therapy. Supportive care. Plan of care discussed with patient, RN and Dr. Parham. Napoleon Parham 08/24/22 2216:Diagnosis, Assessment PlanAdditional comments:Patient was seen and examined at bedside, agree with above assessment and plan as documented by nurse practitioner. Will follow. at 1623 at 9341 RPT #:[id number] OF REPORTPRProgress tkxs3839-74-47U90:48:00G.[id number] able for patient opzlZCWDETHJWTHPZJ3374-31-68I23:24:06 [facility] 2022-08-22 09:43:00 [id number] zxr8vRv1az0woqVqlmoq0OkoltkUE 4kUdu7DNWNTvAnQNtcLN72ceZcw8204-47-07G72:43:00 [facility] HospitalHospital[facility] Progress NoteREPORT#:[id number] REPORT STATUS: SignedDATE:08/22/22 TIME: 09 PATIENT: KARMA ROWLAND UNIT #: [id number]#: [id number] [address] [birth year] AGE: 56 SEX: M ATTEND: Wilbert Ramires MDADM AUTHOR: Wilbert Ramires MD * ALL edits or amendments must be made on the electronic/computer document * SubjectiveChief complaint:AMS and right foot infection. doing ok. not much pain. s/p extensivedebridement. off insulin drip. toelrating diet. no pain Review of SystemsAll systems rev neg: except as noted Objective GeneralVS/I O:Vital Signs: Date Time Temp Pulse Resp B/P B/P Pulse O2 O2 Flow FiO2 Mean Ox Delivery Rate 08/22 0600 [...] 72.575 kg Weight PATIENT WEIGHT: Weight (lb): 160Weight (oz): 15Weight (kg): 72.575 Medications:Active Meds + DC'd Last 24 HrsFamotidine (PEPCID) 20 MG BID PO Lorazepam (ATIVAN) 1 MG ONCE PRN IV Sodium Chloride (SODIUM CHLORIDE) 0 ASDIR PRN IV Insulin Glargine (Lantus/Semglee) 25 UNIT BEDTIME SUBQ Insulin Human Lispro (HUMALOG) 7 UNIT AC SUBQ Insulin Human Lispro (HUMALOG) 0 AC HS SUBQ Dextrose/Water (DEXTROSE 10% IN WATER) 125 ML ASDIR PRN IV (CKD) Dextrose/Water (DEXTROSE 10% IN WATER) 250 ML ASDIR PRN IV (CKD) Glucagon (GLUCAGON) 1 MG ASDIR PRN IM Dextrose/Water (Dextrose 10% 1,000 mL) 1,000 ML ASDIR IV Vancomycin HCl (VANCOMYCIN HCL) 1,000 MG Q12H IV (DC) Sodium Chloride (SODIUM CHLORIDE 0.9%) 250 MLClindamycin Phosphate (CLEOCIN 900 MG/NS 50 ML) 50 [...] NASAL Heparin Sodium (HEPARIN 5000 UNITS/ML) 5,000 UNIT Q8HR SUBQ Miscellaneous Information (VANCOMYCIN PHARMACY TO DOSE) 1 EACH ASDIR IV (CKD) Physical ExamGeneral appearance: alert, awake, orientedHead/Eyes: normocephalicENT: moist mucosal membranesNeck: no JVDCardiovascular: regular rate rhythm, no heaveRespiratory: aerating well, clear to auscultation, symmetric expansion, no distressAbdomen: non-tender, normal bowel sounds, soft, no distentionGenitourinary: no bladder distentionExtremities: right foot markedly swollen with violacous disoloratoin of dorsum and lateral area extending to ankle. There were blisters with some blisters wereopen. Neuro/DIRECTOR OPERATING ROOM: alert, oriented X 3, 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 Considered stroke alert: noSkin: no rashPsychiatry: normal affect, normal judgment/insight, normal mood ResultsFindings/Data:Laboratory Tests 08/22 08/22 08/21 08/21 08/21 0747 0440 2014 1622 1108Chemistry Sodium (134 - 147 mEq/L) 133 L [...] (Auto) (14.0 - 32.0 %) 9.0 L [place] % (Auto) (4.8 - 9.0 %) 4.8 Eos % (Auto) (0.3 - 3.7 %) 0.4 Baso % (Auto) (0.0 - 2.0 %) 0.1 Neut # (Auto) (2.0 - 7.6 x10 3/uL) 15.98 H Lymph # (Auto) (1.0 - 3.8 x10 3/uL) 1.76 [place] # (Auto) (0.1 - 0.8 x10 3/uL) 0.93 H Eos # (Auto) (0.0 - 0.2 x10 3/uL) 0.08 Baso # (Auto) (0.0 - 0.2 x10 3/uL) 0.02 Abs Immat Gran (auto) (0.00 - 0.03 x10 3/uL) 0.70 H Add Manual Diff NO Immature Gran % (0.0 - 2.0 %) 3.6 H Nucleated RBC % (0 - 0 %) 0.0 Nucleated RBCs # (Man) (0.0 - 0.1 x10 3/uL) 0.00 Laboratory Tests 08/22 1315 Toxicology Vancomycin Peak (30 - 40 MCG/ML) 30.7 Vancomycin Trough (10.0 - 20.0 mcg/mL) 27.2 *H Random Vancomycin (mcg/mL) 19.7 Diagnosis, Assessment Plan Free Text DxA P NotesFree text DxA P notes:DKADM 2, poorly controlledsevere gas gangrene, right foot/necrotizing fascitisMRSA bacteremiaAKIsevere hyponatremia likely due to combination of severe hyperglycemia and dehydration from DKAsepsis due to foot infectionDM neuropathyHTNanemia, acute due to blood loss Plans: - [...] planning for I D today. Surgery on standby if needed to further debride his lower leg vs amputation. - WBC improving - will type and cross for blood and transfuse if less than 7 gms - d.w at [...] wean off insulin drip. Subq insulin and sliding scale. 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 will likely need wound vac at some point - off [...] transfuse as needed - awaiting floor transfer at 0610 RPT #:[id number] OF REPORTPRProgress itjk9833-71-31N64:43:00G.RJHK90093551-4167RTVocvy able for patient kiafTDJHDBOCRXQDKG1140-02-51Y39:10:58 [facility] 2022-08-21 17:45:00 [id number] a/cz/opDIxexBdTfd0eUysWhDI+rh 1lftkjBEj/y283WinIszFImK4hb5291-44-45T69:45:00 [facility] ([facility])Podiatry Progress NoteREPORT#:[id number] REPORT STATUS: SignedDATE:08/21/22 TIME: 1744 PATIENT: KARMA ROWLAND UNIT #: [id number]#: [id number] [address]BZV: 61 AGE: 56 SEX: M ATTEND: Wilbert Ramires AUTHOR: Liam Pedersen DPM * ALL edits or amendments must be made on the electronic/computer document * SubjectiveChief complaint:my foot is red and swollenPatient reports: no cough, no dizziness, no fever, no itching, no nausea Objective GeneralVS:Last Documented: Result Date Time Temp 37.1 08/21 1200 Pulse Ox 97 08/21 1115 Pulse 97 08/21 1115 Resp 14 08/21 1115 B/P 99/56 08/21 1100 B/P Mean 73 08/21 1100 O2 Delivery Nasal cannula 08/21 0800 O2 Flow Rate 2 08/21 0800 PATIENT WEIGHT: Weight (lb): 160Weight (oz): 15Weight (kg): 72.575 Medications:Active Meds + DC'd Last 24 HrsFamotidine (PEPCID) 20 MG BID PO Lorazepam (ATIVAN) 1 MG ONCE PRN IV Sodium Chloride (SODIUM CHLORIDE) 0 ASDIR PRN IV Insulin Glargine (Lantus/Semglee) 25 UNIT BEDTIME SUBQ Insulin Human Lispro (HUMALOG) 7 UNIT AC SUBQ Insulin Human Lispro (HUMALOG) 0 AC HS SUBQ Dextrose/Water (DEXTROSE 10% IN WATER) 125 ML ASDIR PRN IV (CKD) Dextrose/Water (DEXTROSE 10% IN WATER) 250 ML ASDIR PRN IV (CKD) Glucagon (GLUCAGON) 1 MG ASDIR PRN IM Sodium Chloride (SODIUM CHLORIDE 0.9%) 1,000 ML .[id number] IV (DC) Dextrose/Water (DEXTROSE 10% IN WATER) 250 ML ASDIR PRN IV (DC) Dextrose/Water (DEXTROSE 10% IN WATER) 250 ML ASDIR PRN IV (DC) Dextrose/Water (Dextrose 10% 1,000 mL) 1,000 ML ASDIR IV Vancomycin HCl (VANCOMYCIN HCL) 1,000 MG Q12H IV Sodium Chloride (SODIUM CHLORIDE 0.9%) 250 MLDextrose/Water (DEXTROSE 10% IN WATER) 250 ML ASDIR PRN IV (DC) Clindamycin Phosphate (CLEOCIN 900 [...] NASAL Heparin Sodium (HEPARIN 5000 UNITS/ML) 5,000 UNIT Q8HR SUBQ Dextrose/Water (DEXTROSE 10% IN WATER) 250 ML ASDIR PRN IV (DC) Miscellaneous Information (VANCOMYCIN PHARMACY TO DOSE) 1 EACH ASDIR IV (CKD) I O:24 hour I O ending at 0700: 08/21 0700 08/20 1900 Intake Total 1290.00 1122.80 Output Total 1650 Balance 1290.00 -527.20 Intake, IV 1190.00 1122.80 Intake, Oral 100 Output, Urine 1650 Patient 73 kg Weight Weight Bed scale Measurement Method Dietitian nutrition assessmentThe data set between the solid lines has been imported from the dietitian's assessment. BMI Calculated: 26.0Nutrition related diagnosis: Nutrition diagnosis details: Nutrition problem: Nutrition etiology: Nutrition signs and symptoms: Nutrition prescription: Dietitian name: Assessment completed: Physical ExamGeneral appearance: alert, awake, oriented, pleasant, mental status normalWound/incision: Location:Right foot to right ankle. DP and PT pulses are very weak essentially nonpalpable. There is severe edema of the right foot to the right ankle, better. There is erythema of the right foot to the right ankle, much better. Not really any ascending lymphangitis past there. Crepitation is at the medial right hindfoot and the dorsal right midfoot are significantly less. There is no longer crepitation at the lateral right ankle. There is some bullae that are peeling medial and lateral. Sensation is greatly decreased on the right foot. base of three wounds fibrotic. sero purulent drainage. bones and tendons exposed.LE vascular pulse assess:Nonpalpable R posterior tibialis, Nonpalpable R dorsalis pedis Considered stroke alert: no ResultsFindings/Data:Laboratory Tests: 08/21 08/21 08/21 08/21 1622 1315 1108 0801 Chemistry POC Glucose (70 - 110 MG/DL) 104 96 123 H Toxicology Vancomycin Peak (30 - 40 MCG/ML) 30.7 08/21 08/20 08/20 0428 2240 2027 Chemistry Sodium (134 - 147 mEq/L) 134 [...] (30 - 40 MCG/ML) 36.0 Diagnosis, Assessment PlanFree Text A P:Gas gangrene right foot and right ankle (Gas in tissues/abscess)Diabetes with peripheral neuropathyMinimal peripheral vascular diseaseLeukocytosisSepsisDKA s/p surgical debridement and washoutCAT scan shows gas in 3 locationsX-rays right foot show no osseous changepacking with Iodoform.IV antibioticsMonitor leukocytosisDiscussed with internal medicine teamNIAS: minimal PVD right08/18 wound culture: MRSA (This one is not accurate, it is of skin that was intact)08/19 OR culture: CPSblood cultures: MRSAOffloading bootICU for nowpulse lavage by physical therapy at 1747 RPT #:[id number] OF REPORTPRProgress [id number]:45:00G.[id number] able for patient borhVKIIHATKAPKFTI5859-21-21K05:47:34 [facility] 2022-08-21 16:49:00 [id number] 1Fqe/T747Ka4wcVhtGXyt2ZhakviD RKq5+kKrjN7gP0OJQwPWqmEw5IJ8894-25-55F68:49:00 [facility])Pharmacy Prog.Note-VancomycinREPORT#:[id number] REPORT STATUS: SignedDATE:08/21/22 TIME: 1649 PATIENT: KARMA ROWLAND UNIT #: [id number]#: [id number] [address] AGE: 56 SEX: M ATTEND: Wilbert Ramires [facility] AUTHOR: Tolu Tobias [facility] * ALL edits or amendments must be made on the electronic/computer document * See AddendumVancomycin Vancomycin Medication TherapyGoal: AUC 400-600 mg*hr/LIndication for treatment:Empiric (now confirmed foot infection and bacteremia)Weight: Actual weight (kg): 72.575VS and I/O:Vital Signs Date Temp Pulse Resp B/P B/P Mean Pulse Ox FiO2 08/18-08/21 36.5-38.8 66-109 10-30 70-161/44-79 54-113 90-100 72 hours ending at 0700 08/21 0708/20 19008/20 0708/19 1900 08/19 08/18 0700 1900Intake 1290.00 1122.80 1412.10 2437.40 3418.00TotalOutput 1650 1600TotalBalance 1290.00 -527.20 1412.10 2437.40 1818.00 Intake, IV 1190.00 1122.80 1412.10 1837.40 2818.00Intake, 100 600 600OralOutput, 1650 1600UrinePatient 73 kgWeightWeight Bed scaleMeasurementMethod 72 Hour I O Total 08/21 0700 08/20 0708/19 0700 Intake Total 2412.80 3849.50 3418.00 Output Total 1650 1600 Balance 762.80 3849.50 1818.00 Labs:Laboratory Tests: 03/30 03/29 1315 2240 Toxicology Vancomycin Peak (30 - 40 MCG/ML) 30.7 36.0 Laboratory Test : 08/21 08/20 08/19 08/19 08/19 0428 0554 2310 1652 1115 Chemistry BUN (7 - 18 mg/dL) 37 H 44 H 41 H 45 H 39 H Creatinine (0.6 - 1.3 mg/dL) 1.2 1.2 1.2 1.2 1.1 Hematology WBC (4.5 - 11.0 x10 3/uL) 19.0 H 22.8 H 20.3 H 08/19 08/19 08/19 08/18 0737 0445 0340 2246 Chemistry BUN (7 - 18 mg/dL) 42 H 43 H 44 H Creatinine (0.6 - 1.3 mg/dL) 1.2 1.3 1.3 Hematology WBC (4.5 - 11.0 x10 3/uL) 21.3 H Microbiology:08/22 427 BLOOD: Blood Culture - RECD08/21 0428 BLOOD: Blood Culture - RECD08/19 1710 BLOOD: Blood Culture - ORD08/19 1710 BLOOD: Blood Culture - ORD08/19 1622 URINE: Urine Culture - COMP08/19 1210 ABSCESS: Wound Culture - RES STAPH AUREUS,METHICILLIN RESIS08/19 1210 ABSCESS: Anaerobic Culture - RES08/19 1210 ABSCESS: Gram Stain - RES Treatment plan: consult, cont current regimen/doseRegimen:HPI: Karma Rowland is a 56 yo male with PMH of DM and HTN who presented with AMS, DKA, and a progressively worsening right foot infection. Patient was started empirically on antibiotics. Pharmacy is consulted to dose vancomycin. Requesting Provider: Andrew London MDIndication: EmpiricVancomycin AUC Goal: 400-600 mcg*hr/mLConcomitant Antibiotics: -Clindamycin 900 mg IV q8h 08/21 A/P: Labs and Vitals: WBC 19.0 (slight decrease from 22.8) Febrile with a Tmax of 38.1C over the past 24 hoursRenal Function: BUN/SCr 37/1.2 (relatively unchanged) Urine Output with 1650 mL document over the past 24 hours Estimated CrCl 64 mL/min (using adjusted body weight)Microbiology: 08/21 Blood Cx x2: Pending 3/28 Abscess Cx from right foot: Many GPC MRSA (vanc VERONICA = 1) 08/18 Blood Cx x2: 2/4 MRSA (vanc VERONICA = 1) 08/18 Wound Cx from right foot: Many MRSA (vanc VERONICA = 1) 08/18 Rapid Strep: NegativeImagin/27 TTE: No valvular abnormalities 08/[address]: Extensive soft tissue edema with mottled gas in subcutaneous and intramuscular compartments compatible with gas-forming infection 08/18 Right foot X-ray: No convincing evidence for OMDosing and Monitoring: -Patient is currently on a maintenance regimen of 1000 mg q12h -Planning for AUC monitoring, peak collected this afternoon, trough ordered to be drawn prior to tonight s dose Pharmacy will continue to monitor Thank you for this consult at 1650 Addendum 1: 08/21/222117 by Mario Yancey [facility] AUC resulted 705.85 mcg*hr/mL supratherapeutic. Dose has been held and cancelled. No new dose ordered. at 2118 RPT #:[id number] OF REPORTPRProgress ijfo0877-46-87X27:49:00G.[id number] able for patient lmtxHXJWFGGMVZXUHB9781-27-10A04:50:37 [facility] 2022-08-21 14:21:00 [id number]+b RiygqEOfYML5Mwp1phkvBAOKDkP6T Nb736oeg5ghbenFbGitZeA+yEjc4660-81-29Q34:21:00 [facility] ([facility])Infectious Dis. Progress NoteREPORT#:[id number] REPORT STATUS: SignedDATE:08/21/22 TIME: 1420 PATIENT: KARMA ROWLAND UNIT #: [id number]#: [id number] [address] AGE: 56 SEX: M ATTEND: Wilbert Ramires AUTHOR: Anthony Curtis MD * ALL edits or amendments must be made on the electronic/computer document * SubjectiveChief complaint:Follow-up on MRSA bacteremia, right lower extremity necrotizing soft tissue infection.HPI:Patient just went down for an MRI and received Ativan prior to that. Currently sedated under influence of Ativan. Review of systems limited. No major overnight events. Objective GeneralVS/I O:Vital Signs Date Temp Pulse Resp B/P B/P Mean Pulse Ox FiO2 08/20-08/21 98.0-100.5 90-108 13-25 92-144/50-76 65-103 92-99 Last Documented: Result Date Time Temp 98.7 08/21 1200 Pulse Ox 97 08/21 1115 Pulse 97 08/21 1115 Resp 14 08/21 1115 B/P 99/56 08/21 1100 B/P Mean 73 08/21 1100 O2 Delivery Nasal cannula 08/21 0800 O2 Flow Rate 2 08/21 0800 Vital Signs: Date Time Temp Pulse Resp B/P B/P Pulse O2 O2 Flow FiO2 Mean Ox Delivery Rate 08/21 1200 98.7 08/21 1115 97 14 97 08/21 1100 105 21 99/56 73 /30 1000 101 15 101/57 76 99 /30 0916 100 15 111/62 76 98 03/30 0915 101 15 97 03/30 0900 101 15 131/63 89 97 03/30 0845 105 19 140/73 100 96 03/30 0830 107 17 142/68 98 95 03/30 0815 100 14 125/64 84 98 03/30 0800 100.4 / 0800 Nasal 2 cannula 08/21 0800 102 15 122/66 89 96 03/30 [...] 08/20 2014 101 19 126/59 85 94 03/29 1999 98.7 /1999 98 16 108/60 77 94 03/29 1945 97 16 110/57 75 95 03/29 1930 96 15 95/51 65 95 08/20 1915 96 17 96/52 70 95 08/20 1900 97 15 103/55 71 97 08/20 1815 101 20 100/58 79 95 08/20 1800 101 22 122/62 87 94 08/20 1745 100 22 116/59 84 95 08/20 1730 98 20 99/51 69 93 08/20 1715 97 17 111/59 79 95 08/20 1700 96 14 112/59 80 95 08/20 1645 94 15 109/55 74 95 08/20 1630 97 15 110/57 79 94 08/20 1615 95 14 110/59 77 96 08/20 1600 98.0 08/20 1600 92 14 101/55 71 95 08/20 1545 92 14 104/55 72 94 08/20 1530 92 14 114/57 80 94 08/20 1515 94 15 114/62 84 95 08/20 1500 93 15 108/57 78 95 08/20 1445 93 14 124/59 84 94 08/20 1430 91 14 121/60 82 95 24 hour I O ending at 0700: 08/21 0700 08/20 1900 Intake Total 1290.00 1122.80 Output Total 1650 Balance 1290.00 -527.20 Intake, IV 1190.00 1122.80 Intake, Oral 100 Output, Urine 1650 Patient 73 kg Weight Weight Bed scale Measurement Method PATIENT WEIGHT: Weight (lb): 160Weight (oz): 15Weight (kg): 73.000 Physical ExamGeneral appearance: sleeping comfortably, no acute distressWound/incision: Location:right foot currently dressedCardiovascular: normal heart sounds, regular rate rhythm, no murmurRespiratory: clear to auscultation, aerating well, symmetric expansionAbdomen: non-tender, soft, no distentionExtremities: edema, RLE pitting edema notedNeuro/DIRECTOR OPERATING ROOM: alert, 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 Considered stroke alert: noSkin: lesions, no rashPsychiatry: normal affect, normal mood Diagnosis, Assessment PlanFree Text A P:Assessment: Mr. Rowland is a 56-year-old male with history of diabetes mellitus type 2, hypertension who was admitted with altered mental status and right-sidedfoot infection. According to him, he noticed a blister on his right foot around3 days prior to presentation. His foot got progressively more swollen and erythema extended proximally to his lateral foot and ankle. Here, patient was tachycardic and had a leukocytosis of 26.5. CT abdomen and pelvis with contrastis concerning for possible prostate abscess. CT of lower extremity without contrast shows extensive soft tissue edema with mottled gas in the subcutaneous and intramuscular compartments of the foot, compatible with gas-forming infection. Patient's blood cultures have come back positive for MRSA in 2 out of 2 sets. Infectious disease consultation is requested for antimicrobial recommendations. *MRSA bacteremia*Severe sepsis due to above*Right lower extremity necrotizing fasciitis*DKA*Prostatic mass versus abscess*ERIKA*Hyponatremia*Diabetic neuropathy*Diabetes mellitus type 2*Hypertension -Continues to have temperature spike; Tmax 100.4 F.-Leukocytosis of 19.0 on today's CBC noted. Downtrending.-Hemoglobin A1c >14%. -Initial blood cultures from 08/18/2022 positive for MRSA in 2 out of 2 sets.-Repeat blood cultures obtained earlier this a.m. and currently pending x2.-Wound culture also positive for Staphylococcus aureus. -TTE 08/18/2022 negative for any obvious vegetations. -Went to the OR 08/19/2022 per podiatry for an I D. -Seen by urology for prostatic mass versus abscess. Plans for pelvic MRI noted. Currently pending. Plan: -Follow blood cultures x2 from today.-Continue to repeat serial blood cultures till bacteremia clears. -Continue clindamycin x5 to 7 days total.-Continue vancomycin. -If patient has persistent bacteremia, he will need a JIMENA.-Further recommendations to follow based upon clinical course. CURRENT ANTIMICROBIALS:Clindamycin + vancomycin, started 3Day 4 at 1425 RPT #:[id number] OF REPORTPRProgress [id number]:21:00G.[id number] able for patient fjldBDLNYQZLQCSZVA8194-30-11Q94:26:08 [facility] 2022-08-21 09:33:00 [id number] kcw3DhpIWJ0+49kgtpyWZBxz9kcEA kLTwUFDuik/GtbeP9O6dLcq7bC92737-42-28Z21:33:00 [facility] ([facility])Cardiology Progress NoteREPORT#:[id number] REPORT STATUS: SignedDATE:08/21/22 TIME: 932 PATIENT: KARMA ROWLAND UNIT #: [id number]#: [id number] [address] [birth year] AGE: 56 SEX: M ATTEND: Wilbert Ramires [facility] AUTHOR: Rohit Benitez [employer] * ALL edits or amendments must be made on the electronic/computer document * Rohit Benitez 08/21/22 0933:SubjectiveChief complaint:foot infection Free Text Subj NotesFree Text Subj Notes:Patient seen and evaluated. Resting in bed, awake and alert in no apparent distress. Telemetry sinus rhythm Objective GeneralVS/I O:24 hour I O ending at 0700: 08/21 0700 08/20 1900 Intake Total 1290.00 1122.80 Output Total 1650 Balance 1290.00 -527.20 Intake, IV 1190.00 1122.80 Intake, Oral 100 Output, Urine 1650 Patient 161 lb Weight Weight Bed scale Measurement Method Vital Signs: Date Time Temp Pulse Resp B/P B/P Pulse O2 O2 Flow FiO2 Mean Ox Delivery Rate 08/21 0632 101 13 96 08/21 0630 101 14 127/67 89 96 08/21 0615 99 13 130/76 98 96 08/21 0600 99 14 129/75 97 95 08/21 0552 101 15 132/71 96 95 08/21 0535 98.0 08/21 0530 100 14 125/70 93 96 08/21 0515 100 15 124/66 88 96 08/21 0500 97 14 118/63 81 98 08/21 0445 97 13 111/60 81 98 08/21 0430 94 16 96/52 69 97 08/21 0415 93 14 106/62 78 97 08/21 0400 98.5 08/21 0400 92 14 93/57 71 97 08/21 0345 90 14 93/56 71 98 08/21 0330 92 14 114/60 79 97 03/30 [...] 2045 103 18 131/63 91 93 /29 2029 101 17 121/58 83 94 /29 2014 101 19 126/59 85 94 03/29 1999 98.7 /1999 98 16 108/60 77 94 03/29 1945 [...] 03/29 1700 96 14 112/59 80 95 08/20 1645 94 15 109/55 74 95 08/20 1630 97 15 110/57 79 94 08/20 1615 95 14 110/59 77 96 08/20 [...] 152/73 105 97 PATIENT WEIGHT: Weight (lb): 160Weight (oz): 15Weight (kg): 73.000 Medications:Active Meds + DC'd Last 24 HrsLorazepam (ATIVAN) 1 MG ONCE PRN IV Sodium Chloride (SODIUM CHLORIDE) 0 ASDIR PRN IV Insulin Glargine (Lantus/Semglee) 25 UNIT BEDTIME SUBQ Calcium Gluconate/Sodium Chloride (Calcium Gluconate 1 GM/NS 50 mL) 50 ML ONCE ONE IV (DC) Insulin Human Lispro (HUMALOG) 7 UNIT AC SUBQ Insulin Human Lispro (HUMALOG) 0 AC HS SUBQ Dextrose/Water (DEXTROSE 10% IN WATER) 125 ML ASDIR PRN IV (CKD) Dextrose/Water (DEXTROSE 10% IN WATER) 250 ML ASDIR PRN IV (CKD) Glucagon (GLUCAGON) 1 MG ASDIR PRN IM Insulin Human Lispro (HUMALOG) 0 AC HS SUBQ (DC) Insulin Glargine (Lantus/Semglee) 10 UNIT NOW ONE SUBQ (DC) Insulin Glargine (Lantus/Semglee) 15 UNIT BEDTIME SUBQ (DC) Norepinephrine Bitartrate (NOREPINEPHRINE 8 MG/NS 250 ML) 250 ML TITRATE IV (DC) Albumin Human (ALBUMINAR 25%) 100 ML Q6H IV (DC) Sodium Chloride (SODIUM CHLORIDE 0.9%) 1,000 ML .[id number] IV (DC) Dextrose/Water (DEXTROSE 10% IN WATER) 250 ML ASDIR PRN IV (DC) Insulin Human Regular (HumuLIN R) 100 UNIT ASDIR IV (DC) Sodium Chloride (SODIUM CHLORIDE 0.9%) 99 MLDextrose/Water (DEXTROSE 10% IN WATER) 250 ML ASDIR PRN IV (DC) Dextrose/Water (Dextrose 10% 1,000 mL) 1,000 ML ASDIR IV Insulin Human Regular (HumuLIN R) 100 UNIT ASDIR IV (DC) Sodium Chloride (SODIUM CHLORIDE 0.9%) 99 MLVancomycin HCl (VANCOMYCIN HCL) 1,000 MG Q12H IV Sodium Chloride (SODIUM CHLORIDE 0.9%) 250 MLMeropenem (MEROPENEM) 500 MG Q6H IV (DC) Sterile Water (WATER FOR INJECTION) 10 MLDextrose/Water (DEXTROSE 10% IN WATER) 250 ML ASDIR PRN IV (DC) Clindamycin Phosphate (CLEOCIN 900 [...] NASAL Heparin Sodium (HEPARIN 5000 UNITS/ML) 5,000 UNIT Q8HR SUBQ Dextrose/Water (DEXTROSE 10% IN WATER) 250 ML ASDIR PRN IV (DC) Magnesium Sulfate (MAGNESIUM SULFATE 2GM/SWFI 50ML) 50 ML ASDIR PRN IV (DC) Magnesium Sulfate (MAGNESIUM SULFATE 4GM/SWFI 100ML) 100 ML ASDIR PRN IV (DC) Miscellaneous Information (VANCOMYCIN PHARMACY TO DOSE) 1 EACH ASDIR IV (CKD) Potassium Chloride (POTASSIUM CHLORIDE 20MEQ TAB.ER) 20 MEQ ASDIR PRN PO (DC) Potassium Chloride (POTASSIUM CHLORIDE 20MEQ TAB.ER) 40 MEQ ASDIR PRN PO (DC) Potassium Chloride (POTASSIUM CHLORIDE 20MEQ TAB.ER) 60 MEQ ASDIR PRN PO (DC) Potassium Chloride (KCL 20MEQ/SWFI 100ML) 100 ML ASDIR PRN IV (DC) Potassium Phosphate (POTASSIUM PHOSPHATE) 15 MM ASDIR PRN IV (DC) Sodium Chloride (SODIUM CHLORIDE 0.9%) 250 ML Physical ExamGeneral appearance: alert, awake, orientedNeck: no bruit/NL carotids, no JVDCardiovascular: CV assessment: abnormal S1/S2, regular rate and rhythm, no ectopyRespiratory: clear to auscultation, no distressLower extremity: LE assessment: edemaNeuro/DIRECTOR OPERATING ROOM: alert, oriented X 3 Considered stroke alert: noWound/incision: Location:right footPsychiatry: normal affect, normal judgment/insight, normal mood ResultsFindings/Data:Laboratory Tests 08/21 08/21 08/20 08/20 08/20 0801 0428 2028 1636 1107Chemistry Sodium (134 - 147 mEq/L) 134 Potassium [...] Diagnosis, Assessment Plan Free Text DxA P NotesFree Text DxA P Notes:Impression: 1. Preop eval/cardiac clearance2. Infected right foot gas gangrene3. DKA4. Sepsis5. Hypertension 6. Anemia Recommendation: Patient presented for evaluation of altered mental status, weakness and elevatedblood sugar. Diagnosed with DKA and sepsis. 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 Known cardiac history of hypertension and hyperlipidemia. Denies prior history of CAD, CHF or arrhythmia. EKG abnormal, NSR with anterior infarct. Vital signs stable. No prior cardiac work-up. -Check echocardiogram-Monitor telemetry for arrhythmia-Monitor blood pressure trend-Wound care and IV antibiotic therapy-Supportive care 08/19: Patient doing better postop, blood pressure control, currently in sinus rhythm, lower extremity artery Doppler negative for any significant PAD, continue current management from primary team and podiatry service, continue monitor on telemetry for arrhythmia postop, supportive care, discussed with patient and family as well as RN, will follow. 08/21: Patient overall doing well, awake and alert today. Blood pressure well controlled. Currently in sinus rhythm to sinus tachycardia, will continue to monitor. Echocardiogram shows LVEF of 55 to 69%, no regional wall motion abnormalities, grade 1 diastolic dysfunction, and mildly dilated LA. continue antibiotic therapy and wound care. Supportive care. Plan of care discussed with patient, RN and Dr. Parham. Napoleon Parham 08/24/22 2215:Diagnosis, Assessment PlanAdditional comments:Patient was seen and examined at bedside, agree with above assessment and plan as documented by nurse practitioner. Will follow. at 9267 at 9493 [facility] #:[id number] OF REPORTPRProgress [id number]:33:00G.[id number] able for patient gpatNHHVAHWQTSNSTF8193-21-91P43:27:06 [facility] 2022-08-21 08:31:00 [id number] Fe0qqaRplYffp++Ip++7uaiompkB2 tHZJriYN6gjlX01A94Bsm12LNoB2419-97-63Q67:31:00 [facility] ([facility])Hospitalist Progress NoteREPORT#:[id number] REPORT STATUS: SignedDATE:08/21/22 TIME: 08 PATIENT: KARMA ROWLAND UNIT #: [id number]#: [id number] [address] [birth year] AGE: 56 SEX: M ATTEND: Wilbert Ramires MDADM AUTHOR: Wilbert Ramires MD * ALL edits or amendments must be made on the electronic/computer document * SubjectiveChief complaint:AMS and right foot infection. doing ok. not much pain. s/p extensivedebridement. off insulin drip. toelrating diet. no pain Review of SystemsAll systems rev neg: except as noted Objective GeneralVS/I O:Vital Signs: Date Time Temp Pulse Resp B/P B/P Pulse O2 O2 Flow FiO2 Mean Ox Delivery Rate 08/21 0632 101 13 96 /30 0630 101 14 127/67 89 96 /30 0615 99 13 130/76 98 96 03/30 0600 99 14 129/75 97 95 03/30 0552 101 15 132/71 96 95 03/30 0535 98.0 /30 0530 100 14 125/70 93 96 03/30 [...] 03/29 2200 106 24 137/71 96 95 03/ 2145 108 23 131/67 91 92 03/ 2130 107 21 134/66 94 94 03/ 2115 104 21 140/67 97 95 03/ 2100 103 18 127/65 89 96 03/29 2045 103 18 131/63 91 93 / 2030 101 17 121/58 83 94 /2014 101 19 126/59 85 94 /1999 98.7 / 2000 98 16 108/60 77 94 03/29 1945 97 16 110/57 75 95 03/29 1930 96 15 95/51 65 95 /29 1915 96 17 96/52 70 95 /29 1900 97 15 103/55 71 97 03/29 [...] 03/29 1615 95 14 110/59 77 96 03/29 1600 98.0 03/ 1600 92 14 101/55 71 95 03/29 1545 92 14 104/55 72 94 03/29 1530 92 14 114/57 80 94 03/29 1515 94 15 114/62 84 95 03/29 1500 93 15 108/57 78 95 08/20 [...] scale Measurement Method PATIENT WEIGHT: Weight (lb): 160Weight (oz): 15Weight (kg): 73.000 Medications:Active Meds + DC'd Last 24 HrsInsulin Glargine (Lantus/Semglee) 25 UNIT BEDTIME SUBQ Calcium Gluconate/Sodium Chloride (Calcium Gluconate 1 GM/NS 50 mL) 50 ML ONCE ONE IV (DC) Insulin Human Lispro (HUMALOG) 7 UNIT AC SUBQ Insulin Human Lispro (HUMALOG) 0 AC HS SUBQ Dextrose/Water (DEXTROSE 10% IN WATER) 125 ML ASDIR PRN IV (CKD) Dextrose/Water (DEXTROSE 10% IN WATER) 250 ML ASDIR PRN IV (CKD) Glucagon (GLUCAGON) 1 MG ASDIR PRN IM Insulin Human Lispro (HUMALOG) 0 AC HS SUBQ (DC) Insulin Glargine (Lantus/Semglee) 10 UNIT NOW ONE SUBQ (DC) Insulin Glargine (Lantus/Semglee) 15 UNIT BEDTIME SUBQ (DC) Norepinephrine Bitartrate (NOREPINEPHRINE 8 MG/NS 250 ML) 250 ML TITRATE IV (DC) Albumin Human (ALBUMINAR 25%) 100 ML Q6H IV (DC) Sodium Chloride (SODIUM CHLORIDE 0.9%) 1,000 ML .[id number] IV (DC) Dextrose/Water (DEXTROSE 10% IN WATER) 250 ML ASDIR PRN IV (CKD) Insulin Human Regular (HumuLIN R) 100 UNIT ASDIR IV (DC) Sodium Chloride (SODIUM CHLORIDE 0.9%) 99 MLDextrose/Water (DEXTROSE 10% IN WATER) 250 ML ASDIR PRN IV (CKD) Dextrose/Water (Dextrose 10% 1,000 mL) 1,000 ML ASDIR IV Insulin Human Regular (HumuLIN R) 100 UNIT ASDIR IV (DC) Sodium Chloride (SODIUM CHLORIDE 0.9%) 99 MLVancomycin HCl (VANCOMYCIN HCL) 1,000 MG Q12H IV Sodium Chloride (SODIUM CHLORIDE 0.9%) 250 MLMeropenem (MEROPENEM) 500 MG Q6H IV (DC) Sterile Water (WATER FOR INJECTION) 10 MLDextrose/Water (DEXTROSE 10% IN WATER) 250 ML ASDIR PRN IV (CKD) Clindamycin Phosphate (CLEOCIN 900 [...] NASAL Heparin Sodium (HEPARIN 5000 UNITS/ML) 5,000 UNIT Q8HR SUBQ Dextrose/Water (DEXTROSE 10% IN WATER) 250 ML ASDIR PRN IV (CKD) Magnesium Sulfate (MAGNESIUM SULFATE 2GM/SWFI 50ML) 50 ML ASDIR PRN IV (DC) Magnesium Sulfate (MAGNESIUM SULFATE 4GM/SWFI 100ML) 100 ML ASDIR PRN IV (DC) Miscellaneous Information (VANCOMYCIN PHARMACY TO DOSE) 1 EACH ASDIR IV (CKD) Potassium Chloride (POTASSIUM CHLORIDE 20MEQ TAB.ER) 20 MEQ ASDIR PRN PO (DC) Potassium Chloride (POTASSIUM CHLORIDE 20MEQ TAB.ER) 40 MEQ ASDIR PRN PO (DC) Potassium Chloride (POTASSIUM CHLORIDE 20MEQ TAB.ER) 60 MEQ ASDIR PRN PO (DC) Potassium Chloride (KCL 20MEQ/SWFI 100ML) 100 ML ASDIR PRN IV (DC) Potassium Phosphate (POTASSIUM PHOSPHATE) 15 MM ASDIR PRN IV (DC) Sodium Chloride (SODIUM CHLORIDE 0.9%) 250 ML Physical ExamGeneral appearance: alert, awake, orientedHead/Eyes: normocephalicENT: moist mucosal membranesNeck: no JVDCardiovascular: regular rate rhythm, no heaveRespiratory: aerating well, clear to auscultation, symmetric expansion, no distressAbdomen: non-tender, normal bowel sounds, soft, no distentionGenitourinary: no bladder distentionExtremities: right foot markedly swollen with violacous disoloratoin of dorsum and lateral area extending to ankle. There were blisters with some blisters wereopen. Neuro/DIRECTOR OPERATING ROOM: alert, oriented X 3, 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 Considered stroke alert: noSkin: no rashPsychiatry: normal affect, normal judgment/insight, normal mood ResultsFindings/Data:Laboratory Tests 08/21 08/21 08/20 08/20 08/20 0801 0428 2028 1636 1107Chemistry Sodium (134 - 147 mEq/L) 134 Potassium [...] 3+ Anisocytosis 2+ Macrocytosis 2+ Laboratory Tests 08/21 2239 Toxicology Vancomycin Peak (30 - 40 MCG/ML) 36.0 Diagnosis, Assessment Plan Free Text DxA P NotesFree text DxA P notes:DKADM 2, poorly controlledsevere gas gangrene, right foot/necrotizing fascitisMRSA bacteremiaAKIsevere hyponatremia likely due to combination of severe hyperglycemia and dehydration from DKAsepsis due to foot infectionDM neuropathyHTNanemia, acute due to blood loss Plans: - [...] planning for I D today. Surgery on standby if needed to further debride his lower leg vs amputation. - WBC improving - will type and cross for blood and transfuse if less than 7 gms - d.w at [...] wean off insulin drip. Subq insulin and sliding scale. 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 will likely need wound vac at some point - off insulin drip - tolerating diet. d/c IV fluids - pain controlled - awaiting MRI of his foot and pelvis - fall precautions - transfer to floor at 0833 RPT #:[id number] OF REPORTPRProgress nnjf9140-10-27F58:31:00G.[id number] able for patient dwklUEBKAHKIQYNNWB1414-25-36F76:35:02 [facility]ACL 2022-08-20 21:55:00 [id number] xGSP82+Ecxgjtlgw26guniF+vxZZG 16b4djak1smrgYlBNbjm5E1BvCH0455-62-05T92:55:00 [facility] ([facility])Cardiology Progress NoteREPORT#:[id number] REPORT STATUS: SignedDATE:08/20/22 TIME: 2154 PATIENT: KARMA ROWLAND UNIT #: [id number]#: [id number] [address] [birth year] AGE: 56 SEX: M ATTEND: Wilbert Ramires MDADM AUTHOR: Napoleon Parham MD * ALL edits or amendments must be made on the electronic/computer document * SubjectiveChief complaint:foot infectionComments:No new symptoms, patient denies any chest pain Telemetry: Sinus rhythm Objective GeneralVS/I O:24 hour I O ending at 0700: 08/20 0700 08/19 1900 Intake Total 1412.10 2437.40 Output Total Balance 1412.10 2437.40 Intake, IV 1412.10 1837.40 Intake, Oral 600 Vital Signs: Date Time Temp Pulse Resp B/P B/P Pulse O2 O2 Flow FiO2 Mean Ox Delivery Rate 08/20 2114 104 21 140/67 97 95 08/20 2099 103 18 127/65 89 96 08/20 2044 103 18 131/63 91 93 08/20 2029 101 17 121/58 83 94 08/20 2014 101 19 126/59 85 94 08/21 1999 98 16 108/60 77 94 08/205 97 16 110/57 75 95 08/20 1930 96 15 95/51 65 95 03/29 1915 96 17 96/52 70 95 03/29 1900 97 15 103/55 71 97 03/29 1815 101 20 100/58 79 95 03/29 1800 101 22 122/62 87 94 03/29 1745 100 22 116/59 84 95 03/29 1730 98 20 99/51 69 93 03/ 1715 97 17 111/59 79 95 03/29 [...] 03/ 1430 91 14 121/60 82 95 03/29 1415 92 13 116/58 78 95 03/29 1400 91 13 118/59 80 95 03/29 1345 90 14 124/60 81 95 / 1330 88 13 110/58 78 96 03/29 1315 88 15 113/56 79 95 03/29 1300 88 14 106/55 77 93 03/29 1245 95 23 132/64 92 97 03/29 1230 100 24 134/66 95 93 / 1215 100 21 152/78 108 95 03/29 1200 98.0 03/ 1200 94 19 145/74 102 96 03/29 1145 94 21 138/74 101 96 03/29 1130 93 19 153/77 108 96 03/29 1115 93 19 159/77 110 96 03/29 1100 88 19 149/79 106 96 03/29 1045 86 17 130/71 95 97 03/29 1030 86 20 143/73 101 98 03/29 1015 91 23 161/79 113 97 03/29 1000 86 18 139/73 100 97 03/29 0945 85 21 152/73 105 97 03/ 0930 87 23 126/69 93 96 03/29 0915 81 15 122/68 90 97 03/29 0900 80 13 126/70 93 99 03/29 0845 80 12 121/67 86 96 03/29 0830 81 13 122/67 88 97 03/29 0815 80 18 119/65 88 97 03/29 [...] 03/29 0020 74 14 116/65 86 98 03/ 0015 75 13 121/70 91 99 03/ 0010 75 13 112/66 85 98 03/ 0005 75 12 112/65 83 98 03/ 0000 97.7 03/ 0000 77 13 110/64 83 98 03/ 2355 75 12 116/65 85 100 / 2350 96 27 105/60 77 98 03/ 2345 75 11 99/58 73 99 03/ 2340 74 13 99/56 72 98 03/ 2335 74 14 102/58 75 99 03/ 2330 72 12 101/56 72 97 03/ 2325 74 16 99/60 74 99 03/ 2320 73 11 97/58 73 98 03/ 2315 73 11 103/60 75 99 03/ 2310 73 16 91/57 70 98 03/28 2305 73 14 95/59 73 99 03/ 2300 73 11 99/60 75 99 03/ 2255 71 12 94/55 71 99 03/28 2250 69 14 86/54 66 98 03/28 2245 70 13 93/57 70 98 03/28 2240 71 13 96/57 71 98 03/28 2235 77 11 101/58 73 99 03/28 2230 70 11 87/52 65 98 03/ 2225 69 12 89/53 66 98 03/28 2220 71 13 88/54 67 97 03/28 2215 70 12 93/58 71 96 03/28 2210 69 11 89/55 67 97 03/28 2205 70 12 94/58 71 98 03/28 2200 72 13 105/61 78 98 PATIENT WEIGHT: Weight (lb): 171Weight (oz): 4.79Weight (kg): 77.700 Medications:Active Meds + DC'd Last 24 HrsInsulin Glargine (Lantus/Semglee) 25 UNIT BEDTIME SUBQ Calcium Gluconate/Sodium Chloride (Calcium Gluconate 1 GM/NS 50 mL) 50 ML ONCE ONE IV (DC) Insulin Human Lispro (HUMALOG) 7 UNIT AC SUBQ Insulin Human Lispro (HUMALOG) 0 AC HS SUBQ Dextrose/Water (DEXTROSE 10% IN WATER) 125 ML ASDIR PRN IV (CKD) Dextrose/Water (DEXTROSE 10% IN WATER) 250 ML ASDIR PRN IV (CKD) Glucagon (GLUCAGON) 1 MG ASDIR PRN IM Insulin Human Lispro (HUMALOG) 0 AC HS SUBQ (DC) Insulin Glargine (Lantus/Semglee) 10 UNIT NOW ONE SUBQ (DC) Insulin Glargine (Lantus/Semglee) 15 UNIT BEDTIME SUBQ (DC) Norepinephrine Bitartrate (NOREPINEPHRINE 8 MG/NS 250 ML) 250 ML TITRATE IV (DC) Albumin Human (ALBUMINAR 25%) 100 ML Q6H IV (DC) Sodium Chloride (SODIUM CHLORIDE 0.9%) 1,000 ML .[id number] IV Dextrose/Water (DEXTROSE 10% IN WATER) 250 ML ASDIR PRN IV (CKD) Insulin Human Regular (HumuLIN R) 100 UNIT ASDIR IV (DC) Sodium Chloride (SODIUM CHLORIDE 0.9%) 99 MLDextrose/Water (DEXTROSE 10% IN WATER) 250 ML ASDIR PRN IV (CKD) Dextrose/Water (Dextrose 10% 1,000 mL) 1,000 ML ASDIR IV Insulin Human Regular (HumuLIN R) 100 UNIT ASDIR IV (DC) Sodium Chloride (SODIUM CHLORIDE 0.9%) 99 MLVancomycin HCl (VANCOMYCIN HCL) 1,000 MG Q12H IV Sodium Chloride (SODIUM CHLORIDE 0.9%) 250 MLMeropenem (MEROPENEM) 500 MG Q6H IV (DC) Sterile Water (WATER FOR INJECTION) 10 MLDextrose/Water (DEXTROSE 10% IN WATER) 250 ML ASDIR PRN IV (CKD) Clindamycin Phosphate (CLEOCIN 900 [...] NASAL Heparin Sodium (HEPARIN 5000 UNITS/ML) 5,000 UNIT Q8HR SUBQ Dextrose/Water (DEXTROSE 10% IN WATER) 250 ML ASDIR PRN IV (CKD) Magnesium Sulfate (MAGNESIUM SULFATE 2GM/SWFI 50ML) 50 ML ASDIR PRN IV (DC) Magnesium Sulfate (MAGNESIUM SULFATE 4GM/SWFI 100ML) 100 ML ASDIR PRN IV (DC) Miscellaneous Information (VANCOMYCIN PHARMACY TO DOSE) 1 EACH ASDIR IV (CKD) Potassium Chloride (POTASSIUM CHLORIDE 20MEQ TAB.ER) 20 MEQ ASDIR PRN PO (DC) Potassium Chloride (POTASSIUM CHLORIDE 20MEQ TAB.ER) 40 MEQ ASDIR PRN PO (DC) Potassium Chloride (POTASSIUM CHLORIDE 20MEQ TAB.ER) 60 MEQ ASDIR PRN PO (DC) Potassium Chloride (KCL 20MEQ/SWFI 100ML) 100 ML ASDIR PRN IV (DC) Potassium Phosphate (POTASSIUM PHOSPHATE) 15 MM ASDIR PRN IV (DC) Sodium Chloride (SODIUM CHLORIDE 0.9%) 250 ML Physical ExamGeneral appearance: alert, awake, orientedNeck: no bruit/NL carotids, no JVDCardiovascular: CV assessment: abnormal S1/S2, regular rate and rhythm, no ectopyRespiratory: clear to auscultation, no distressLower extremity: LE assessment: edemaNeuro/DIRECTOR OPERATING ROOM: alert, oriented X 3 Considered stroke alert: noWound/incision: Location:right foot ResultsFindings/Data:Laboratory Tests 08/20 1636 1107 0756 0647 Chemistry POC Glucose (70 - 110 MG/DL) 123 H 201 H 173 H 192 H 206 H 08/20 08/20 08/20 08/20 08/19 0554 0454 0259 0101 2352Chemistry Sodium (134 - 147 mEq/L) 137 Potassium [...] 5.0 g/dL) 2.00 L 08/19 08/19 08/19 2322 2310 2223 Chemistry Sodium (134 - [...] (Auto) (14.0 - 32.0 %) 4.8 L Len[place] % (Auto) (4.8 - 9.0 %) 2.9 L Eos % (Auto) (0.3 - 3.7 %) 0.0 L Baso % (Auto) (0.0 - 2.0 %) 0.2 Neut # (Auto) (2.0 - 7.6 x10 3/uL) 19.90 H Lymph # (Auto) (1.0 - 3.8 x10 3/uL) 1.10 [place] # (Auto) (0.1 - 0.8 x10 3/uL) 0.66 Eos # (Auto) (0.0 - 0.2 x10 3/uL) 0.00 Baso # (Auto) (0.0 - 0.2 x10 3/uL) 0.04 Abs Immat Gran (auto) (0.00 - 0.03 x10 3/uL) 1.12 H Add Manual Diff NO Immature Gran % (0.0 - 2.0 %) 4.9 H Nucleated RBC % (0 - 0 %) 0.0 Nucleated RBCs # (Man) (0.0 - 0.1 x10 3/uL) 0.00 Laboratory Tests 08/20 08/19 0554 2310 Chemistry Magnesium (1.80 - 2.40 mg/dL) 2.05 2.09 Diagnosis, Assessment Plan Free Text DxA P NotesFree Text DxA P Notes:Impression: 1. Preop eval/cardiac clearance2. Infected right foot gas gangrene3. DKA4. Sepsis5. Hypertension 6. Anemia Recommendation: Patient presented for evaluation of altered mental status, weakness and elevatedblood sugar. Diagnosed with DKA and sepsis. 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 Known cardiac history of hypertension and hyperlipidemia. Denies prior history of CAD, CHF or arrhythmia. EKG abnormal, NSR with anterior infarct. Vital signs stable. No prior cardiac work-up. -Check echocardiogram-Monitor telemetry for arrhythmia-Monitor blood pressure trend-Wound care and IV antibiotic therapy-Supportive care 08/19: Patient doing better postop, blood pressure control, currently in sinus rhythm, lower extremity artery Doppler negative for any significant PAD, continue current management from primary team and podiatry service, continue monitor on telemetry for arrhythmia postop, supportive care, discussed with patient and family as well as RN, will follow. 08/20: Stable cardiac status. Remained in sinus rhythm, blood pressure well controlled, continue supportive care, will follow. at 2257 RPT #:[id number] OF REPORTPRProgress [id number]:55:00G.[id number] able for patient bawrCWDKVRYDUEPIKQ3281-12-91E44:57:36 [facility] 2022-08-20 20:11:00 [id number] [id number] HOu8fqvDvbpJCV6nMsGTWw0UC185705-00-25V32:11:00 [facility])Podiatry Progress NoteREPORT#:[id number] REPORT STATUS: SignedDATE:08/20/22 TIME: 2010 PATIENT: KARMA ROWLAND UNIT #: [id number]#: [id number] [facility] AGE: 56 SEX: M ATTEND: Wilbert Ramires AUTHOR: Liam Pedersen DPM * ALL edits or amendments must be made on the electronic/computer document * SubjectiveChief complaint:my foot is red and swollenNursing reports: no constipation, no dizziness, no fatigue, no headache, no itchingComments:per nursing.... blood cultures and abscess cultures show MRSApt in ICU Objective GeneralVS:Last Documented: Result Date Time Pulse Ox 95 08/20 1814 B/P 100/58 08/20 1814 B/P Mean 79 08/20 1814 Pulse 101 08/20 1814 Resp 20 08/20 1814 Temp 36.7 08/20 1600 O2 Delivery Nasal cannula 08/19 141 O2 Flow Rate 2 08/19 1419 PATIENT WEIGHT: Weight (lb): Weight (oz): Weight (kg): 77.700 Medications:Active Meds + DC'd Last 24 HrsInsulin Glargine (Lantus/Semglee) 25 UNIT BEDTIME SUBQ Calcium Gluconate/Sodium Chloride (Calcium Gluconate 1 GM/NS 50 mL) 50 ML ONCE ONE IV (DC) Insulin Human Lispro (HUMALOG) 7 UNIT AC SUBQ Insulin Human Lispro (HUMALOG) 0 AC HS SUBQ Dextrose/Water (DEXTROSE 10% IN WATER) 125 ML ASDIR PRN IV (CKD) Dextrose/Water (DEXTROSE 10% IN WATER) 250 ML ASDIR PRN IV (CKD) Glucagon (GLUCAGON) 1 MG ASDIR PRN IM Insulin Human Lispro (HUMALOG) 0 AC HS SUBQ (DC) Insulin Glargine (Lantus/Semglee) 10 UNIT NOW ONE SUBQ (DC) Insulin Glargine (Lantus/Semglee) 15 UNIT BEDTIME SUBQ (DC) Norepinephrine Bitartrate (NOREPINEPHRINE 8 MG/NS 250 ML) 250 ML TITRATE IV (DC) Albumin Human (ALBUMINAR 25%) 100 ML Q6H IV (DC) Sodium Chloride (SODIUM CHLORIDE 0.9%) 1,000 ML .[id number] IV Dextrose/Water (DEXTROSE 10% IN WATER) 250 ML ASDIR PRN IV (CKD) Insulin Human Regular (HumuLIN R) 100 UNIT ASDIR IV (DC) Sodium Chloride (SODIUM CHLORIDE 0.9%) 99 MLDiphenhydramine HCl (BENADRYL) 12.5 MG PACU ONCE PRN IV (DC) Fentanyl Citrate (SUBLIMAZE) 100 MCG PACU Q10MIN PRN PRN IV (DC) Fentanyl Citrate (SUBLIMAZE) 50 MCG PACU Q10MIN PRN PRN IV (DC) Hydralazine HCl (APRESOLINE) 5 MG PACU Q10MIN PRN PRN IV (DC) Hydrocodone Bitart/Acetaminophen (NORCO 5/325) 1 TAB PACU ONCE PO (DC) Hydromorphone HCl (DILAUDID) 1 MG PACU Q10MIN PRN PRN IV (DC) Hydromorphone HCl (DILAUDID) 0.5 MG PACU Q5MIN PRN PRN IV (DC) Insulin Human Lispro (HUMALOG) 0 PACU ONCE PRN SUBQ (DC) Labetalol HCl (LABETALOL HCL) 5 MG PACU Q10MIN PRN PRN IV (DC) Meperidine HCl (MEPERIDINE HCL/PF) 12.5 MG PACU ONCE PRN IV (DC) Morphine Sulfate (morphine SULFATE) 2 MG PACU Q10MIN PRN PRN IV (DC) Ondansetron HCl (ZOFRAN) 4 MG PACU ONCE PRN IV (DC) Promethazine HCl (PHENERGAN) 25 MG PACU ONCE PRN PO (DC) Ropivacaine (NAROPIN 0.5% 150 MG/30mL) 150 MG ASDIR PRN LOCAL (DC) Tramadol HCl (ULTRAM) 50 MG PACU ONCE PO (DC) Dextrose/Water (DEXTROSE 10% IN WATER) 250 ML ASDIR PRN IV (CKD) Dextrose/Water (Dextrose 10% 1,000 mL) 1,000 ML ASDIR IV Insulin Human Regular (HumuLIN R) 100 UNIT ASDIR IV (DC) Sodium Chloride (SODIUM CHLORIDE 0.9%) 99 MLVancomycin HCl (VANCOMYCIN HCL) 1,000 MG Q12H IV Sodium Chloride (SODIUM CHLORIDE 0.9%) 250 MLMeropenem (MEROPENEM) 500 MG Q6H IV (DC) Sterile Water (WATER FOR INJECTION) 10 MLDextrose/Water (DEXTROSE 10% IN WATER) 250 ML ASDIR PRN IV (CKD) Clindamycin Phosphate (CLEOCIN 900 [...] NASAL Heparin Sodium (HEPARIN 5000 UNITS/ML) 5,000 UNIT Q8HR SUBQ Dextrose/Water (DEXTROSE 10% IN WATER) 250 ML ASDIR PRN IV (CKD) Magnesium Sulfate (MAGNESIUM SULFATE 2GM/SWFI 50ML) 50 ML ASDIR PRN IV (DC) Magnesium Sulfate (MAGNESIUM SULFATE 4GM/SWFI 100ML) 100 ML ASDIR PRN IV (DC) Miscellaneous Information (VANCOMYCIN PHARMACY TO DOSE) 1 EACH ASDIR IV (CKD) Potassium Chloride (POTASSIUM CHLORIDE 20MEQ TAB.ER) 20 MEQ ASDIR PRN PO (DC) Potassium Chloride (POTASSIUM CHLORIDE 20MEQ TAB.ER) 40 MEQ ASDIR PRN PO (DC) Potassium Chloride (POTASSIUM CHLORIDE 20MEQ TAB.ER) 60 MEQ ASDIR PRN PO (DC) Potassium Chloride (KCL 20MEQ/SWFI 100ML) 100 ML ASDIR PRN IV (DC) Potassium Phosphate (POTASSIUM PHOSPHATE) 15 MM ASDIR PRN IV (DC) Sodium Chloride (SODIUM CHLORIDE 0.9%) 250 ML I O:24 hour I O ending at 0700: 08/20 0700 08/19 1900 Intake Total 1412.10 2437.40 Output Total Balance 1412.10 2437.40 Intake, IV 1412.10 1837.40 Intake, Oral 600 Dietitian nutrition assessmentThe data set between the solid lines has been imported from the dietitian's assessment. BMI Calculated: 27.6Nutrition related diagnosis: Nutrition diagnosis details: Nutrition problem: Nutrition etiology: Nutrition signs and symptoms: Nutrition prescription: Dietitian name: Assessment completed: Physical ExamGeneral appearance: alert, awake, orientedWound/incision: Location:Right foot to right ankle. DP and PT pulses are very weak essentially nonpalpable.There is severe edema of the right foot to the right ankle, better.There is erythema of the right foot to the right ankle, much better.Not really any ascending lymphangitis past there.Crepitation is at the medial right hindfoot and the dorsal right midfoot are significantly less.There is no longer crepitation at the lateral right ankle.There is some bullae that are peeling medial and lateral.Sensation is greatly decreased on the right foot. base of three wounds fibrotic.sero purulent drainage. bones and tendons exposed.LE vascular pulse assess:Nonpalpable R posterior tibialis, Nonpalpable R dorsalis pedis Considered stroke alert: no ResultsFindings/Data:Laboratory Tests: 08/20 08/20 08/20 08/20 08/20 1636 1107 0756 0647 0554Chemistry Sodium (134 - 147 mEq/L) 137 Potassium [...] L Albumin (3.4 - 5.0 g/dL) 2.00 LHematology WBC (4.5 - 11.0 x10 3/uL) 22.8 [...] (Auto) (14.0 - 32.0 %) 4.8 L [place] % (Auto) (4.8 - 9.0 %) 2.9 L Eos % (Auto) (0.3 - 3.7 %) 0.0 L Baso % (Auto) (0.0 - 2.0 %) 0.2 Neut # (Auto) (2.0 - 7.6 x10 3/uL) 19.90 H Lymph # (Auto) (1.0 - 3.8 x10 3/uL) 1.10 [place] # (Auto) (0.1 - 0.8 x10 3/uL) 0.66 Eos # (Auto) (0.0 - 0.2 x10 3/uL) 0.00 Baso # (Auto) (0.0 - 0.2 x10 3/uL) 0.04 Abs Immat Gran (auto) (0.00 - 0.03 1.12 Hx10 3/uL) Add Manual Diff NO Immature Gran % (0.0 - 2.0 %) 4.9 H Nucleated RBC % (0 - 0 %) 0.0 Nucleated RBCs # (Man) (0.0 - 0.1 0.00x10 3/uL) 08/20 08/20 08/20 08/19 08/19 0454 0259 0101 2352 2322 Chemistry POC Glucose (70 - 110 MG/DL) 198 H 195 H 181 H 182 H 191 H 08/19 08/19 08/19 08/19 2310 2222130 Chemistry Sodium (134 - 147 mEq/L) 132 [...] Hct (37.5 - 50.7 %) 21.8 L Microbiology:08/20 145 BLOOD: Blood Culture - ORD08/20 1458 BLOOD: Blood Culture - ORD08/19 1710 BLOOD: Blood Culture - ORD08/19 1710 BLOOD: Blood Culture - ORD08/19 1622 URINE: Urine Culture - 1210 ABSCESS: Wound Culture - RES COAG POS OXLKJNMWCLEFPY51/28 1210 ABSCESS: Anaerobic Culture - 1210 ABSCESS: Gram Stain - RES08/18 0915 FOOT: Wound Culture - ORD08/18 206 FOOT: Wound Culture - RES STAPH AUREUS,METHICILLIN RESIS08/18 020 THROAT: Group A Streptococcus Screen (VERONICA) - COMP08/18 206 THROAT: Streptococcus Culture - COMP08/18 202 BLOOD: Blood Culture - COMP STAPH AUREUS,METHICILLIN RESIS08/18 020 BLOOD: Blood Culture Gram Stain - COMP03/27 0203 BLOOD: Blood Culture - COMP STAPH AUREUS,METHICILLIN RESIS08/18 0203 BLOOD: Blood Culture Gram Stain - COMP Recent Impressions-Last 72 HrsRADIOLOGY - XR CHEST 2 V 08/18 0201 Report Impression - Status: SIGNED Entered: 08/18/2022 0317 IMPRESSION: Ill-defined somewhat nodular opacity measuring 3.2 cm laterally in the right mid lung suspicious for rounded pneumonia given provided history, but underlying neoplasm can not be excluded. Followup radiographs are recommended after appropriate treatment in order to document complete resolution and exclude an underlying process or neoplasm. Impression By: [email or web address] - Dom Adams M.D.RADIOLOGY - XR FOOT 3 + V RT 08/18 0238 Report Impression - Status: SIGNED Entered: 08/18/2022 0358 IMPRESSION: No acute osseous findings. No convincing evidence for osteomyelitis. MRI is more sensitive for detecting osteomyelitis.Impression By: Ankur Ladd M.D.CAT SCAN - CT ABD PELVIS W/CONT 08/18 0339 Report Impression - Status: SIGNED Entered: 08/18/2022 0546 IMPRESSION: 3.3 cm hypodensity in the left posterior prostate or seminal vesicle. This could represent an abscess. Contrast-enhanced MRI of the pelvis would be helpful for further evaluation.No acute intra-abdominal findings otherwise.Impression By: Ankur - Jay Ladd M.D.CAT SCAN - CT LOWER EXTRM W/O C RT 08/18 0645 Report Impression - Status: SIGNED Entered: 08/18/2022 0827 IMPRESSION: Extensive soft tissue edema with mottled gas in the subcutaneous and intramuscular compartments of the foot compatible with gas-forming infection. Disease extends into the visualized distal leg. Impression By: Jamel Dorantes M.D.ULTRASOUND - [facility] [employer] 08/19 0950 Report Impression - Status: SIGNED Entered: 08/19/2022 1056 IMPRESSION: No sonographic evidence for flow-limiting stenosis in the right lower extremity arterial system. Impression By: [email or web address] - Abraham Ross M.D. Diagnosis, Assessment PlanFree Text A P:Gas gangrene right foot and right ankle (Gas in tissues/abscess)Diabetes with peripheral neuropathyMinimal peripheral vascular diseaseLeukocytosisSepsisDKA s/p surgical debridement and washoutCAT scan shows gas in 3 locationsX-rays right foot show no osseous changepacking with Iodoform.IV antibioticsMonitor leukocytosisDiscussed with internal medicine teamNIAS: minimal PVD right08/18 wound culture: MRSA (This one is not accurate, it is of skin that was intact)08/19 OR culture: CPSblood cultures: MRSAOffloading bootICU for nowpulse lavage by physical therapy at 2017 RPT #:[id number] OF REPORTPRProgress eugx2978-84-83V19:11:00G.ULKF21121834-1095RGPoved able for patient agoqMUHZVACUQAUVSP2081-12-99C45:17:45 [facility] 2022-08-20 19:36:00 [id number] 6kYP4B27V67BUkDMSKZ2tYmIxkTZQ h8MPFxZ2JBn8c+EpDe74R8wZdPo4984-68-49O86:36:00 [facility] ([facility])Urology Progress NoteREPORT#:[id number] REPORT STATUS: SignedDATE:08/20/22 TIME: 1935 PATIENT: KARMA ROWLAND UNIT #: [id number]#: [id number] [address] AGE: 56 SEX: M ATTEND: Wilbert Ramires [facility] AUTHOR: David Du MD * ALL edits or amendments must be made on the electronic/computer document * SubjectivePatient reports: no complaints Objective GeneralVS/I O:Last Documented: Result Date Time Pulse Ox 95 08/20 181 B/P 100/58 08/20 181 B/P Mean 79 08/20 1814 Pulse 101 08/20 181 Resp 20 08/20 181 Temp 36.7 08/20 1600 O2 Delivery Nasal cannula 08/19 1419 O2 Flow Rate 2 08/19 1419 24 hour I O ending at 0700: 08/20 0700 08/19 1900 Intake Total 1412.10 2437.40 Output Total Balance 1412.10 2437.40 Intake, IV 1412.10 1837.40 Intake, Oral 600 PATIENT WEIGHT: Weight (lb): Weight (oz): Weight (kg): 77.700 Physical ExamGeneral appearance: alert, awake ResultsFindings/Data:Laboratory Tests: 08/20 08/20 08/20 08/20 1636 1107 0756 0647 Chemistry POC Glucose (70 - 110 MG/DL) 201 H 173 H 192 H 206 H 08/20 08/20 08/20 08/20 0554 0454 0259 0101Chemistry Sodium (134 - 147 mEq/L) 137 Potassium [...] L Albumin (3.4 - 5.0 g/dL) 2.00 LHematology WBC (4.5 - 11.0 x10 3/uL) 22.8 [...] (Auto) (14.0 - 32.0 %) 4.8 L [place] % (Auto) (4.8 - 9.0 %) 2.9 L Eos % (Auto) (0.3 - 3.7 %) 0.0 L Baso % (Auto) (0.0 - 2.0 %) 0.2 Neut # (Auto) (2.0 - 7.6 x10 3/uL) 19.90 H Lymph # (Auto) (1.0 - 3.8 x10 3/uL) 1.10 [place] # (Auto) (0.1 - 0.8 x10 3/uL) 0.66 Eos # (Auto) (0.0 - 0.2 x10 3/uL) 0.00 Baso # (Auto) (0.0 - 0.2 x10 3/uL) 0.04 Abs Immat Gran (auto) (0.00 - 0.03 x10 3/uL) 1.12 H Add Manual Diff NO Immature Gran % (0.0 - 2.0 %) 4.9 H Nucleated RBC % (0 - 0 %) 0.0 Nucleated RBCs # (Man) (0.0 - 0.1 x10 3/uL) 0.00 08/19 08/19 08/19 08/19 08/19 2352 2322 [...] - 110 MG/DL) 218 H Diagnosis, Assessment PlanFree Text A P:Concern for prostate hypodensity. PSA 0.9. prostate cancer or abscess would most likely elevate his PSA. Waiting on MRI of pelvis to be completed at 1938 RPT #:[id number] OF REPORTPRProgress owef1569-80-12C14:36:00G.[id number] able for patient uqayZIUZETICCHJNBS4540-59-22M52:38:23 [facility] 2022-08-20 16:36:00 [id number] n4cBBH6rUw8s9gcNxbsTAiUDcRtRC S6iqtPXKLOrma/Uu6FhdX+FzVKy0627-94-68V75:36:00 [facility] ([facility])Critical Care Progress NoteREPORT#:[id number] REPORT STATUS: SignedDATE:08/20/22 TIME: 1636 PATIENT: KARMA ROWLAND UNIT #: [id number]#: [id number] [facility] AGE: 56 SEX: M ATTEND: Wilbert Ramires MDA AUTHOR: Alma De La Rosa RES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 Presented 08/18 with fever, AMS. He wasfound to have labs consisent with DKA with AGAP 21 and glucose 700+. RLE was very swollen/painful CT done concerning for gas gangrene. Review of SystemsAll systems rev neg: except as marked Objective GeneralVS/I OVital Signs Date Temp Pulse Resp B/P B/P Mean Pulse Ox FiO2 08/19-08/20 97.7-98.2 66-96 10- 70-141/45-76 54-99 90-100 24 hour I O ending at 0700: 08/20 0700 08/19 1900 Intake Total 1412.10 2437.40 Output Total Balance 1412.10 2437.40 Intake, IV 1412.10 1837.40 Intake, Oral 600 PATIENT WEIGHT: Weight (lb): Weight (oz): Weight (kg): 77.700 Temperature maximum: 98.2 Physical ExamGeneral appearance: alert, awake, oriented, no acute distressHead/eyes: atraumatic, clear cornea, normocephalic, PERRLAENT: moist mucosal membranes, normal dentition, normal noseNeck: full range of motion, non-tender, no JVD, no masses or swellingCardiovascular: decreased cap refill, tachycardia, regular rate and rhythmRespiratory: aerating well, clear to auscultation, symmetric expansionAbdomen: soft, non-tender, normal bowel soundsExtremities: decreased range of motion, edema, moves allMusculoskeletal decreased ROMNeuro/DIRECTOR OPERATING ROOM: alert, 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, 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, no sensory deficits Considered stroke alert: noSkin: abnormal color, abnormal temperatureWound/incision: Location:right foot Site condition: dressing clean dry, dressing intactPsychiatry: normal affect ResultsFindings/data:Laboratory Tests 08/20/22 0554:[Embedded Image Not Available] 08/19/22 2310:[Embedded Image Not Available] 08/19/22 1652:[Embedded Image Not Available]Microbiology:08/20 1458 BLOOD: Blood Culture - ORD08/20 1458 BLOOD: Blood Culture - 171 BLOOD: Blood Culture - 1710 BLOOD: Blood Culture - ORD08/19 1622 URINE: Urine Culture - RES08/19 1210 ABSCESS: Wound Culture - RES COAG POS [id number] 1210 ABSCESS: Anaerobic Culture - RES08/19 1210 ABSCESS: Gram Stain - RES08/18 0915 FOOT: Wound Culture - ORD08/18 0207 FOOT: Wound Culture - RES STAPH AUREUS,METHICILLIN RESIS08/18 0207 THROAT: Group A Streptococcus Screen (VERONICA) - COMP08/18 0207 THROAT: Streptococcus Culture - COMP08/18 0203 BLOOD: Blood Culture - COMP STAPH AUREUS,METHICILLIN RESIS08/18 0203 BLOOD: Blood Culture Gram Stain - COMP08/18 020 BLOOD: Blood Culture - COMP STAPH AUREUS,METHICILLIN RESIS08/18 0203 BLOOD: Blood Culture Gram Stain - COMP Results: labs reviewed, vital signs reviewed, vital signs stable, rhythm personally rev'd, x-ray personally reviewed, current med profile rev'd Diagnosis, Assessment PlanFree text A P:56 year old male unknown PMH who presented 08/18 with fever, AMS. He was found to have labs consisent with DKA with AGAP 21 and glucose 700+. Problem list:* Acute post op pain* DKA* pseudohyponatremia* tachycardia/hypotension likely secondary to hypovolemia* ERIKA* microcytic anemia - iron deficency* gram positive bactermia likely MRSA* RLE necrotizing fascitis /gas gangrene 08/20/22: no overnight events. pt is awake, pain is controlled, toleratind diet, RA, hemodynamically stable. cont IVF for now. HH holding. transition off insulingtt. afebrile. ok to tx to IMCU. Neuro: pain regimen per scaleCV: cont IVF resuscitation. Pulm: no issues. wean NC to maintain SpO2>92%GI: no issues, advance diet. bowel regimen Renal: cont IVF, trend cr, serial chemistry, monitor I OHeme: trend HH, will need outpatient eval for etiologyID: blood cx + CONS. merrem/ clindamycinEndo: insulin protocol + lantus per wood milling machine operator. gap closed. a1c>14.MUSK: s/p RLE debridement on 08/19 GI px: pepcid -- pt is anemic with no clear source of bleeding will cont for nowDVT px: hep sqDispo: ICU I have spent 25 minutes critical care time assessing, reviewing labs and imagingand discussing plan of care with the critical care junior systems engineer. at 1644 RPT #:[id number] OF REPORTPRProgress [id number]:36:00G.[id number] able for patient ypsuMYMLVAVUHQXGIJ8429-24-04F07:44:11 [facility] 2022-08-20 15:25:00 [id number] mhS5EIMXVv89uSYPfEo4lLOK2GJ4061-19-15T58:25:00 [facility]End[facility] Progress NoteREPORT#:[id number] REPORT STATUS: SignedDATE:08/20/22 TIME: 1525 PATIENT: KARMA ROWLAND UNIT #: [id number]#: [id number] [address] AGE: 56 SEX: M ATTEND: Wilbert Ramires MDADM AUTHOR: Braxton Chapin MD * ALL edits or amendments must be made on the electronic/computer document * SubjectivePatient reports: no complaints Objective GeneralVS:Last Documented: Result Date Time Pulse Ox 97 08/20 0700 B/P 124/69 08/20 0700 B/P Mean 92 08/20 0700 Pulse 82 08/20 0700 Resp 15 08/20 0700 Temp 36.8 08/20 0400 O2 Delivery Nasal cannula 08/19 1419 O2 Flow Rate 2 08/19 1419 PATIENT WEIGHT: Weight (lb): Weight (oz): Weight (kg): 77.700 Medications:Active Meds + DC'd Last 24 HrsInsulin Glargine (Lantus/Semglee) 25 UNIT BEDTIME SUBQ Insulin Human Lispro (HUMALOG) 0 AC HS SUBQ Insulin Glargine (Lantus/Semglee) 10 UNIT NOW ONE SUBQ (DC) Insulin Glargine (Lantus/Semglee) 15 UNIT BEDTIME SUBQ (DC) Norepinephrine Bitartrate (NOREPINEPHRINE 8 MG/NS 250 ML) 250 ML TITRATE IV Sodium Chloride (SODIUM CHLORIDE 0.9%) 500 ML BOLUS ONCE ONE IV (DC) Albumin Human (ALBUMINAR 25%) 100 ML Q6H IV (DC) Sodium Chloride (SODIUM CHLORIDE 0.9%) 500 ML BOLUS ONCE ONE IV (DC) Sodium Chloride (SODIUM CHLORIDE 0.9%) 1,000 ML .[id number] IV Dextrose/Water (DEXTROSE 10% IN WATER) 250 ML ASDIR PRN IV (CKD) Insulin Human Regular (HumuLIN R) 100 UNIT ASDIR IV (DC) Sodium Chloride (SODIUM CHLORIDE 0.9%) 99 MLDiphenhydramine HCl (BENADRYL) 12.5 MG PACU ONCE PRN IV (DC) Fentanyl Citrate (SUBLIMAZE) 100 MCG PACU Q10MIN PRN PRN IV (DC) Fentanyl Citrate (SUBLIMAZE) 50 MCG PACU Q10MIN PRN PRN IV (DC) Hydralazine HCl (APRESOLINE) 5 MG PACU Q10MIN PRN PRN IV (DC) Hydrocodone Bitart/Acetaminophen (NORCO 5/325) 1 TAB PACU ONCE PO (DC) Hydromorphone HCl (DILAUDID) 1 MG PACU Q10MIN PRN PRN IV (DC) Hydromorphone HCl (DILAUDID) 0.5 MG PACU Q5MIN PRN PRN IV (DC) Insulin Human Lispro (HUMALOG) 0 PACU ONCE PRN SUBQ (DC) Labetalol HCl (LABETALOL HCL) 5 MG PACU Q10MIN PRN PRN IV (DC) Meperidine HCl (MEPERIDINE HCL/PF) 12.5 MG PACU ONCE PRN IV (DC) Morphine Sulfate (morphine SULFATE) 2 MG PACU Q10MIN PRN PRN IV (DC) Ondansetron HCl (ZOFRAN) 4 MG PACU ONCE PRN IV (DC) Promethazine HCl (PHENERGAN) 25 MG PACU ONCE PRN PO (DC) Ropivacaine (NAROPIN 0.5% 150 MG/30mL) 150 MG ASDIR PRN LOCAL (DC) Tramadol HCl (ULTRAM) 50 MG PACU ONCE PO (DC) Dextrose/Water (DEXTROSE 10% IN WATER) 250 ML ASDIR PRN IV (CKD) Dextrose/Water (Dextrose 10% 1,000 mL) 1,000 ML ASDIR IV Insulin Human Regular (HumuLIN R) 100 UNIT ASDIR IV (DC) Sodium Chloride (SODIUM CHLORIDE 0.9%) 99 MLVancomycin HCl (VANCOMYCIN HCL) 1,000 MG Q12H IV Sodium Chloride (SODIUM CHLORIDE 0.9%) 250 MLMeropenem (MEROPENEM) 500 MG Q6H IV (DC) Sterile Water (WATER FOR INJECTION) 10 MLDextrose/Water (DEXTROSE 10% IN WATER) 250 ML ASDIR PRN IV (CKD) Clindamycin Phosphate (CLEOCIN 900 [...] NASAL Heparin Sodium (HEPARIN 5000 UNITS/ML) 5,000 UNIT Q8HR SUBQ Dextrose/Water (DEXTROSE 10% IN WATER) 250 ML ASDIR PRN IV (CKD) Magnesium Sulfate (MAGNESIUM SULFATE 2GM/SWFI 50ML) 50 ML ASDIR PRN IV Magnesium Sulfate (MAGNESIUM SULFATE 4GM/SWFI 100ML) 100 ML ASDIR PRN IV Miscellaneous Information (VANCOMYCIN PHARMACY TO DOSE) 1 EACH ASDIR IV (CKD) Potassium Chloride (POTASSIUM CHLORIDE 20MEQ TAB.ER) 20 MEQ ASDIR PRN PO Potassium Chloride (POTASSIUM CHLORIDE 20MEQ TAB.ER) 40 MEQ ASDIR PRN PO Potassium Chloride (POTASSIUM CHLORIDE 20MEQ TAB.ER) 60 MEQ ASDIR PRN PO (CKD) Potassium Chloride (KCL 20MEQ/SWFI 100ML) 100 ML ASDIR PRN IV Potassium Phosphate (POTASSIUM PHOSPHATE) 15 MM ASDIR PRN IV Sodium Chloride (SODIUM CHLORIDE 0.9%) 250 ML Physical ExamGeneral appearance: alert, awake Diagnosis, Assessment PlanHospital course to date:Laboratory Tests: 08/20 08/20 08/20 08/20 08/20 1107 0756 0647 0554 0454Chemistry Sodium (134 - 147 mEq/L) 137 Potassium [...] - 10.5 mg/dL) 7.3 L Ionized Calcium Imtzi (1.09 - 1.30 MMOL/L) 1.04 L Phosphorus (2.5 - 4.9 MG/DL) 3.4 Magnesium (1.80 - 2.40 mg/dL) 2.05 Total Bilirubin (0.0 - 1.0 mg/dL) 0.60 AST (15 - 37 IUnit/L) 51 H ALT (30 - 65 IUnit/L) 22 L Total Alk Phosphatase (20 - 125 IUnit/L) 178 H Total Protein (6.4 - 8.2 g/dL) 5.7 L Albumin (3.4 - 5.0 g/dL) 2.00 LHematology WBC (4.5 - 11.0 x10 3/uL) 22.8 [...] (Auto) (14.0 - 32.0 %) 4.8 L [place] % (Auto) (4.8 - 9.0 %) 2.9 L Eos % (Auto) (0.3 - 3.7 %) 0.0 L Baso % (Auto) (0.0 - 2.0 %) 0.2 Neut # (Auto) (2.0 - 7.6 x10 3/uL) 19.90 H Lymph # (Auto) (1.0 - 3.8 x10 3/uL) 1.10 [place] # (Auto) (0.1 - 0.8 x10 3/uL) 0.66 Eos # (Auto) (0.0 - 0.2 x10 3/uL) 0.00 Baso # (Auto) (0.0 - 0.2 x10 3/uL) 0.04 Abs Immat Gran (auto) (0.00 - 0.03 1.12 Hx10 3/uL) Add Manual Diff NO Immature Gran % (0.0 - 2.0 %) 4.9 H Nucleated RBC % (0 - 0 %) 0.0 Nucleated RBCs # (Man) (0.0 - 0.1 0.00x10 3/uL) 08/20 08/20 08/19 08/19 08/19 0259 [...] (37.5 - 50.7 %) 21.8 L 08/19 1652Chemistry Sodium (134 - 147 mEq/L) 133 L [...] 2.03 Albumin (3.4 - 5.0 g/dL) 1.40 LHematology WBC (4.5 - 11.0 x10 3/uL) 20.3 [...] (Auto) (14.0 - 32.0 %) 3.8 L [place] % (Auto) (4.8 - 9.0 %) 3.7 L Eos % (Auto) (0.3 - 3.7 %) 0.0 L Baso % (Auto) (0.0 - 2.0 %) 0.3 Neut # (Auto) (2.0 - 7.6 x10 3/uL) 17.97 H Lymph # (Auto) (1.0 - 3.8 x10 3/uL) 0.76 L [place] # (Auto) (0.1 - 0.8 x10 3/uL) 0.74 Eos # (Auto) (0.0 - 0.2 x10 3/uL) 0.00 Baso # (Auto) (0.0 - 0.2 x10 3/uL) 0.07 Abs Immat Gran (auto) (0.00 - 0.03 0.71 Hx10 3/uL) Add Manual Diff NO Immature Gran % (0.0 - 2.0 %) 3.5 H Nucleated RBC % (0 - 0 %) 0.0 Nucleated RBCs # (Man) (0.0 - 0.1 0.00x10 3/uL) 08/19 08/19 1622 1601 Chemistry POC Glucose (70 - 110 MG/DL) 232 H Urines Urine Color (YEL/STRAW) YELLOW Urine Appearance (CLEAR) SL CLOUDY Urine pH (5.0 - 7.0) 5.0 Ur Specific [place] (1.005 - 1.030) 1.013 Urine Protein (NEGATIVE) [...] (Auto) (14.0 - 32.0 %) 4.3 L [place] % (Auto) (4.8 - 9.0 %) 3.1 L Eos % (Auto) (0.3 - 3.7 %) 0.0 L Baso % (Auto) (0.0 - 2.0 %) 0.3 Neut # (Auto) (2.0 - 7.6 x10 3/uL) 19.17 H Lymph # (Auto) (1.0 - 3.8 x10 3/uL) 0.91 L [place] # (Auto) (0.1 - 0.8 x10 3/uL) 0.67 Eos # (Auto) (0.0 - 0.2 x10 3/uL) 0.01 Baso # (Auto) (0.0 - 0.2 x10 3/uL) 0.07 Abs Immat Gran (auto) (0.00 - 0.03 x10 3/uL) 0.51 H Add Manual Diff NO Immature Gran % (0.0 - 2.0 %) 2.4 H Nucleated RBC % (0 - 0 %) 0.0 Nucleated RBCs # (Man) (0.0 - 0.1 x10 3/uL) 0.00 08/18 08/18 08/18 08/18 2246 2157 1854 [...] 1209 Wound Culture - RES ABSCESS 08/19 1210 Anaerobic Culture - RES ABSCESS 08/19 1209 Gram Stain - RES ABSCESS Recent Impressions:ULTRASOUND - DUP LE ART UNI/LTD 08/19 0950 Report Impression - Status: SIGNED Entered: 08/19/2022 1056 IMPRESSION: No sonographic evidence for flow-limiting stenosis in the right lower extremity arterial system. Impression By: [email or web address] - Abraham Ross M.D. Laboratory Tests: 08/18 08/18 08/18 08/18 08/18 1430 1430 1404 1309 1203Chemistry Sodium (134 - 147 mEq/L) 131 L [...] 20.0 L Cholesterol/HDL Ratio (3.43 - 4.97 4.00RATIO) TSH (0.42 - 5.47) 0.96 Free T4 (0.77 - 1.61 ng/dL) 0.7 L 08/18 08/18 08/18 08/18 08/18 1107 1004 0900 0823 0549 Chemistry POC Glucose (70 - 110 MG/DL) 223 H 304 H 405 H 449 H Hemoglobin A1c (4.8 - 6.0 %A1C) 13.4 H 08/18 08/18 08/18 0549 0305 0207Blood Gas Puncture Site R Radial O2 Saturation [...] O2 Delivery Device Room Air FiO2 (%) 21Chemistry Sodium (134 - 147 mEq/L) 121 *L [...] 2.34 Albumin (3.4 - 5.0 g/dL) 1.60 LSerology Influenza Type A (PCR) (Negative) Negative Influenza Type B (PCR) (Negative) NegativeToxicology Acetone, Quant (Neg - <20 mg/dL) Large [...] Culture Gram Stain - RES BLOOD Recent Impressions:RADIOLOGY - XR CHEST 2 V 08/18 200 Report Impression - Status: SIGNED Entered: 08/18/2022 0317 IMPRESSION: Ill-defined somewhat nodular opacity measuring 3.2 cm laterally in the right mid lung suspicious for rounded pneumonia given provided history, but underlying neoplasm can not be excluded. Followup radiographs are recommended after appropriate treatment in order to document complete resolution and exclude an underlying process or neoplasm. Impression By: [email or web address] Cr Adams M.D.RADIOLOGY - XR FOOT 3 + V RT 08/18 0238 Report Impression - Status: SIGNED Entered: 08/18/2022 0358 IMPRESSION: No acute osseous findings. No convincing evidence for osteomyelitis. MRI is more sensitive for detecting osteomyelitis.Impression By: Ankur Ladd M.D.CAT SCAN - CT ABD PELVIS W/CONT 08/18 0339 Report Impression - Status: SIGNED Entered: 08/18/2022 0546 IMPRESSION: 3.3 cm hypodensity in the left posterior prostate or seminal vesicle. This could represent an abscess. Contrast-enhanced MRI of the pelvis would be helpful for further evaluation.No acute intra-abdominal findings otherwise.Impression By: Ankur Ladd M.D.CAT SCAN - CT LOWER EXTRM W/O C RT 08/18 0645 Report Impression - Status: SIGNED Entered: 08/18/2022 0827 IMPRESSION: Extensive soft tissue edema with mottled gas in the subcutaneous and intramuscular compartments of the foot compatible with gas-forming infection. Disease extends into the visualized distal leg. Impression By: Jamel Dorantes M.D. 1. 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 DKA3. Cellulitis and gangrene of the right foot.4. Sepsis5. Altered mental status6. High LFTsBlood sugar 212-173 mg/dL.A gap 5HbA1c 13.4%White count 26.5Sodium 121.Adjust insulin drip settingsIncrease mouth feedingsWound care and IV antibiotics. at 1526 RPT #:[id number] OF REPORTPRProgress [id number]:25:00G.[id number] able for patient slynMREAUEPGFCZJTZ4122-24-14P02:27:02 [facility] 2022-08-20 14:54:00 [id number]dAJo q7z4M/RyghV2gm/4tF/1U95ys4j3354-94-78H26:54:00 [facility] ([facility])Infectious Dis. Progress NoteREPORT#:[id number] REPORT STATUS: SignedDATE:08/20/22 TIME: 1454 PATIENT: KARMA ROWLAND UNIT #: [id number]#: [id number] [address] [birth year] AGE: 56 SEX: M ATTEND: Wilbert Ramires [facility] AUTHOR: Anthony Curtis MD * ALL edits or amendments must be made on the electronic/computer document * SubjectiveChief complaint:Follow-up on MRSA bacteremia, right lower extremity necrotizing soft tissueinfection.HPI:Patient reports feeling better subjectively. Denies acute or new complaints. No major overnight events. Objective GeneralVS/I O:Vital Signs Date Temp Pulse Resp B/P B/P [...] O2 Flow FiO2 Mean Ox Delivery Rate 08/20 0700 [...] 03/28 1655 75 16 70/47 55 97 / 1650 75 17 77/50 58 97 08/19 1645 75 17 75/49 58 97 / 1640 75 16 75/49 57 97 08/19 1635 75 16 79/46 58 96 08/19 1630 75 15 76/51 59 96 08/19 1625 75 16 75/52 60 96 / 1620 77 18 79/50 59 97 08/19 1615 75 15 79/52 62 96 / 1610 75 14 77/52 61 96 08/19 1605 75 15 78/50 59 95 08/19 1600 98.4 08/19 1600 76 14 78/51 60 98 / 1555 77 17 78/53 61 98 08/19 [...] (lb): Weight (oz): Weight (kg): 77.700 Physical ExamGeneral appearance: alert, awake, no acute distressWound/incision: Location:right foot currently dressedCardiovascular: normal heart sounds, regular rate rhythm, no murmurRespiratory: clear to auscultation, aerating well, symmetric expansionAbdomen: non-tender, soft, no distentionExtremities: edema, RLE pitting edema notedNeuro/DIRECTOR OPERATING ROOM: alert, 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 Considered stroke alert: noSkin: lesions, no rashPsychiatry: normal affect, normal mood Diagnosis, Assessment PlanFree Text A P:Assessment: Mr. Rowland is a 56-year-old male with history of diabetes mellitus type 2, hypertension who was admitted with altered mental status and right-sidedfoot infection. According to him, he noticed a blister on his right foot around3 days prior to presentation. His foot got progressively more swollen and erythema extended proximally to his lateral foot and ankle. Here, patient was tachycardic and had a leukocytosis of 26.5. CT abdomen and pelvis with contrastis concerning for possible prostate abscess. CT of lower extremity without contrast shows extensive soft tissue edema with mottled gas in the subcutaneous and intramuscular compartments of the foot, compatible with gas-forming infection. Patient's blood cultures have come back positive for MRSA in 2 out of 2 sets. Infectious disease consultation is requested for antimicrobial recommendations. *MRSA bacteremia*Severe sepsis due to above*Right lower extremity necrotizing fasciitis*DKA*Prostatic mass versus abscess*ERIKA*Hyponatremia*Diabetic neuropathy*Diabetes mellitus type 2*Hypertension -Afebrile.-Leukocytosis of 22.8 on today's CBC noted. -Hemoglobin A1c >14%.-Initial blood cultures from 08/18/2022 positive for MRSA in 2 out of 2 sets.-Wound culture also positive for Staphylococcus aureus. -TTE 08/18/2022 negative for any obvious vegetations. -Went to the OR 08/19/2022 per podiatry for an I D. -Seen by urology for prostatic mass versus abscess. Plans for pelvic MRI noted. Currently pending. Plan: -Repeat blood cultures x2 today.-Continue to repeat serial blood cultures till bacteremia clears. -Discontinue meropenem. -Continue clindamycin x5 to 7 days total.-Continue vancomycin. -If patient has persistent bacteremia, he might need a JIMENA.-Further recommendations to follow based upon clinical course. CURRENT ANTIMICROBIALS:Clindamycin + vancomycin, started 3Day 3 at 1457 RPT #:[id number] OF REPORTPRProgress [id number]:54:00G.[id number] able for patient nvdlTZOCKEFAMSQWGQ0746-68-25T21:57:56 [facility] 2022-08-20 13:23:00 [id number] iRfUUdEvyPR0mOFUzSvybgppQxr6a C8FZN1rlexoP2glI7hXqQOlFoBF2975-51-28K12:23:00 [facility] ([facility])General Surgery Progress NoteREPORT#:[id number] REPORT STATUS: SignedDATE:08/20/22 TIME: 1323 PATIENT: KARMA ROWLAND UNIT #: [id number]#: [id number] [address] [birth year] AGE: 56 SEX: M ATTEND: Wilbert Ramires [facility] AUTHOR: Forrest Oswald MD * ALL edits or amendments must be made on the electronic/computer document * SubjectiveChief complaint:postopHPI:Pt is doing well. No complaints. Right foot is much better. Denies any leg pain.Patient reports:Yes: feeling better, flatus, pain controlled, tolerating diet. No: complaints, abdominal pain, ambulating, bowel movement, chest pain, constipation, diarrhea, fever, incisional pain, nausea, pain, shortness of breath, vomiting. Review of SystemsConstitutional:Denies: chills, fatigue, fever, generalized weakness, lethargy, malaise, recent wt loss, other. Skin:Denies: abrasion, bruising, contusion, diaphoresis, ecchymosis, itching, laceration, rash, swelling, other. Allergy/Immun:Denies: allergic reaction, anaphylaxis, hives, itching, rhinorrhea, sneezing, other. Eyes:Denies: redness, discharge, visual loss/blurred, itching, diplopia, eye pain, photophobia, swelling, other. ENT:Denies: ear drainage, ear ringing, earache, hearing loss, mouth pain, nasal congestion, nose bleeding, sinus problem, sore throat, throat pain, throat swelling, tongue pain, tongue swelling, toothache, voice change, other. Respiratory:Denies: OVIEDO (dyspnea on exertion), hemoptysis, non productive cough, parox nocturnal dyspnea, pleurisy, pleuritic pain, pneumonia, productive cough (sputum), SOB, wheezing, other. Cardiovascular:Denies: chest pain, OVIEDO (dyspnea on exertion), edema, orthopnea, palpitations, parox nocturnal dyspnea, other. GI:Denies: abdominal pain, anorexia, constipation, diarrhea, dysphagia, GERD, hematemesis, hematochezia, hiatal hernia, melena, nausea, rectal pain, vomiting,other. :Denies: dysuria, flank pain, frequency, hematuria, nocturia, penile discharge, penile lesion, testicular pain, testicular swelling, urgency, urinary retention,other. Objective GeneralVS/I O:Last Documented: Result Date Time Pulse Ox 97 [...] Weight (lb): Weight (oz): Weight (kg): 77.700 Medications:Active Meds + DC'd Last 24 HrsInsulin Glargine (Lantus/Semglee) 25 UNIT BEDTIME SUBQ Insulin Human Lispro (HUMALOG) 0 AC HS SUBQ Insulin Glargine (Lantus/Semglee) 10 UNIT NOW ONE SUBQ (DC) Insulin Glargine (Lantus/Semglee) 15 UNIT BEDTIME SUBQ (DC) Norepinephrine Bitartrate (NOREPINEPHRINE 8 MG/NS 250 ML) 250 ML TITRATE IV Sodium Chloride (SODIUM CHLORIDE 0.9%) 500 ML BOLUS ONCE ONE IV (DC) Albumin Human (ALBUMINAR 25%) 100 ML Q6H IV (DC) Sodium Chloride (SODIUM CHLORIDE 0.9%) 500 ML BOLUS ONCE ONE IV (DC) Sodium Chloride (SODIUM CHLORIDE 0.9%) 1,000 ML .[id number] IV Dextrose/Water (DEXTROSE 10% IN WATER) 250 ML ASDIR PRN IV (CKD) Insulin Human Regular (HumuLIN R) 100 UNIT ASDIR IV (DC) Sodium Chloride (SODIUM CHLORIDE 0.9%) 99 MLDiphenhydramine HCl (BENADRYL) 12.5 MG PACU ONCE PRN IV (DC) Fentanyl Citrate (SUBLIMAZE) 100 MCG PACU Q10MIN PRN PRN IV (DC) Fentanyl Citrate (SUBLIMAZE) 50 MCG PACU Q10MIN PRN PRN IV (DC) Hydralazine HCl (APRESOLINE) 5 MG PACU Q10MIN PRN PRN IV (DC) Hydrocodone Bitart/Acetaminophen (NORCO 5/325) 1 TAB PACU ONCE PO (DC) Hydromorphone HCl (DILAUDID) 1 MG PACU Q10MIN PRN PRN IV (DC) Hydromorphone HCl (DILAUDID) 0.5 MG PACU Q5MIN PRN PRN IV (DC) Insulin Human Lispro (HUMALOG) 0 PACU ONCE PRN SUBQ (DC) Labetalol HCl (LABETALOL HCL) 5 MG PACU Q10MIN PRN PRN IV (DC) Meperidine HCl (MEPERIDINE HCL/PF) 12.5 MG PACU ONCE PRN IV (DC) Morphine Sulfate (morphine SULFATE) 2 MG PACU Q10MIN PRN PRN IV (DC) Ondansetron HCl (ZOFRAN) 4 MG PACU ONCE PRN IV (DC) Promethazine HCl (PHENERGAN) 25 MG PACU ONCE PRN PO (DC) Ropivacaine (NAROPIN 0.5% 150 MG/30mL) 150 MG ASDIR PRN LOCAL (DC) Tramadol HCl (ULTRAM) 50 MG PACU ONCE PO (DC) Dextrose/Water (DEXTROSE 10% IN WATER) 250 ML ASDIR PRN IV (CKD) Dextrose/Water (Dextrose 10% 1,000 mL) 1,000 ML ASDIR IV Insulin Human Regular (HumuLIN R) 100 UNIT ASDIR IV (DC) Sodium Chloride (SODIUM CHLORIDE 0.9%) 99 MLVancomycin HCl (VANCOMYCIN HCL) 1,000 MG Q12H IV Sodium Chloride (SODIUM CHLORIDE 0.9%) 250 MLMeropenem (MEROPENEM) 500 MG Q6H IV Sterile Water (WATER FOR INJECTION) 10 MLDextrose/Water (DEXTROSE 10% IN WATER) 250 ML ASDIR PRN IV (CKD) Clindamycin Phosphate (CLEOCIN 900 [...] NASAL Heparin Sodium (HEPARIN 5000 UNITS/ML) 5,000 UNIT Q8HR SUBQ Dextrose/Water (DEXTROSE 10% IN WATER) 250 ML ASDIR PRN IV (CKD) Magnesium Sulfate (MAGNESIUM SULFATE 2GM/SWFI 50ML) 50 ML ASDIR PRN IV Magnesium Sulfate (MAGNESIUM SULFATE 4GM/SWFI 100ML) 100 ML ASDIR PRN IV Miscellaneous Information (VANCOMYCIN PHARMACY TO DOSE) 1 EACH ASDIR IV (CKD) Potassium Chloride (POTASSIUM CHLORIDE 20MEQ TAB.ER) 20 MEQ ASDIR PRN PO Potassium Chloride (POTASSIUM CHLORIDE 20MEQ TAB.ER) 40 MEQ ASDIR PRN PO Potassium Chloride (POTASSIUM CHLORIDE 20MEQ TAB.ER) 60 MEQ ASDIR PRN PO (CKD) Potassium Chloride (KCL 20MEQ/SWFI 100ML) 100 ML ASDIR PRN IV Potassium Phosphate (POTASSIUM PHOSPHATE) 15 MM ASDIR PRN IV Sodium Chloride (SODIUM CHLORIDE 0.9%) 250 ML Nutrtion assessment:The data set between the solid lines has been imported from the dietitian's assessment. BMI Calculated: 27.6Nutrition related diagnosis: Nutrition diagnosis details: Nutrition problem: Nutrition etiology: Nutrition signs and symptoms: Nutrition prescription: Dietitian name: Assessment completed: Physical ExamGeneral appearance: alert, awake, oriented, no acute distress, pleasant, conversational, mental status normal, no respiratory distressWound/incision: Location:right foot. Dressing in place. Nontender along the lower leg and calf.HEENT: atraumatic, normocephalicNeck: supple/no meningismusCardiovascular: regular rate and rhythmChest: normal appearanceRespiratory: aerating wellAbdomen: non-tender, soft, no distention, no guardingExtremities: moves all, right foot pain. dressing in place.Neuro/DIRECTOR OPERATING ROOM: alert, oriented x 3, CNII-XII intact, 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 Considered stroke alert: noSkin: normal color, normal temperature, normal turgorPsychiatry: normal affect, normal judgment/insight, normal mood ResultsFindings/Data:Laboratory Tests 08/20/22 0554:[Embedded Image Not Available] 08/19/22 2310:[Embedded Image Not Available] 08/19/22 1652:[Embedded Image Not Available]Laboratory Tests 08/20 08/20 08/20 08/20 08/20 1107 0756 0647 0554 0454Chemistry Carbon Dioxide (21 - 33 mEq/l) 20 [...] Ionized Calcium Mitzi (1.09 - 1.30 1.04 LMMOL/L) Phosphorus (2.5 - 4.9 MG/DL) 3.4 Magnesium (1.80 - 2.40 mg/dL) 2.05 Total Bilirubin (0.0 - 1.0 mg/dL) 0.60 AST (15 - 37 IUnit/L) 51 H ALT (30 - 65 IUnit/L) 22 L Total Alk Phosphatase (20 - 125 178 HIUnit/L) Total Protein (6.4 - 8.2 g/dL) 5.7 [...] L 08/19 08/19 08/19 08/19 08/19 2223 1 2014 172 165 Chemistry Sodium (134 - 147 [...] - 32.0 %) 4.8 L 3.8 L [place] % (Auto) (4.8 - 9.0 %) 2.9 L 3.7 L Eos % (Auto) (0.3 - 3.7 %) 0.0 L 0.0 L Baso % (Auto) (0.0 - 2.0 %) 0.2 0.3 Neut # (Auto) (2.0 - 7.6 x10 3/uL) 19.90 H 17.97 H Lymph # (Auto) (1.0 - 3.8 x10 3/uL) 1.10 0.76 L [place] # (Auto) (0.1 - 0.8 x10 3/uL) 0.66 0.74 Eos # (Auto) (0.0 - 0.2 x10 3/uL) 0.00 0.00 Baso # (Auto) (0.0 - 0.2 x10 3/uL) 0.04 0.07 Abs Immat Gran (auto) (0.00 - 0.03 x10 3/uL) 1.12 H 0.71 H Add Manual Diff NO NO Immature Gran % (0.0 - 2.0 %) 4.9 H 3.5 H Nucleated RBC % (0 - 0 %) 0.0 0.0 Nucleated RBCs # (Man) (0.0 - 0.1 x10 3/uL) 0.00 0.00 Laboratory Tests 08/19 1622 Urines Urine Color (YEL/STRAW) YELLOW Urine Appearance (CLEAR) SL CLOUDY Urine pH (5.0 - 7.0) 5.0 Ur Specific [place] (1.005 - 1.030) 1.013 Urine Protein (NEGATIVE) [...] Mucus (NONE SEEN /LPF) TRACE Diagnosis, Assessment PlanProblem List/A P: 1. Right foot infection Free Text A P:Doing well. Continue current care. Leg is ok. No indications for surgery. Continue current care. at 1325 RPT #:[id number] OF REPORTPRProgress [id number]:23:00G.[id number] able for patient siqwICBCMIIDRNKJOD3658-13-37Y32:26:17 [facility] 2022-08-20 10:53:00 [id number]+cR 07XrHd9G2EfpmXfocGaI3+Y6Mw0ri FddhNSAsgU0zj9i0EPFu00npVEg5309-09-20E44:53:00 [facility] ([facility])Hospitalist Progress NoteREPORT#:[id number] REPORT STATUS: SignedDATE:08/20/22 TIME: 1053 PATIENT: KARMA ROWLAND UNIT #: [id number]#: [id number] [address] [birth year] AGE: 56 SEX: M ATTEND: Wilbert Ramires MDADM AUTHOR: Wilbert Ramires MD * ALL edits or amendments must be made on the electronic/computer document * SubjectiveChief complaint:AMS and right foot infection. doing ok. not much pain. s/p extensive debridement. remains on insulin drip. Review of SystemsAll systems rev neg: except as noted Objective GeneralVS/I O:Vital Signs: Date Time Temp Pulse Resp B/P B/P Pulse O2 O2 Flow FiO2 Mean Ox Delivery Rate 08/20 0700 82 15 124/69 92 97 08/20 0645 80 16 123/66 90 97 08/20 0630 81 17 132/73 98 97 08/20 0615 85 21 141/63 90 95 08/20 0600 80 15 131/75 97 98 08/20 0545 80 12 119/68 88 98 08/20 0530 79 13 132/76 99 99 08/20 0515 75 14 122/69 90 98 08/20 0500 72 13 111/62 81 98 08/20 0445 67 12 94/58 70 96 08/20 0430 68 13 100/60 75 97 08/20 0415 68 12 100/57 73 97 08/20 0400 98.2 08/20 0400 72 12 113/68 86 97 08/20 0345 72 14 106/63 79 98 08/20 0330 72 107/60 78 96 08/20 0315 71 12 111/65 83 97 08/20 0300 73 13 109/64 82 98 08/20 0245 70 13 106/60 77 97 08/20 0230 69 13 93/57 70 97 / 0220 69 13 89/54 67 97 08/20 0215 69 14 95/57 71 97 08/20 0210 70 14 96/56 70 96 03/29 [...] 03/28 1535 76 16 75/47 55 97 03/ 1534 79 20 74/44 54 94 03/ 1530 77 16 76/48 57 97 03/ 1525 79 17 85/53 65 97 03/ 1520 82 17 84/55 63 97 03/ 1516 83 17 83/53 64 97 03/ 1511 83 18 81/60 66 95 03/ 1505 83 20 82/50 62 95 03/28 1500 80 18 83/51 63 96 03/ 1455 81 18 86/54 66 96 03/ 1450 82 14 87/50 63 96 03/ 1445 82 17 88/50 64 96 03/ 1440 82 16 85/54 65 96 03/ 1435 82 16 88/51 65 96 03/ 1430 84 16 89/54 68 96 / 1425 84 19 97/52 71 96 / 1420 85 19 99/56 74 95 / 1419 Nasal 2 cannula 08/19 1415 85 16 94/52 66 95 03/ 1410 85 16 94/50 67 95 03/ 1405 84 30 88/52 64 98 03/28 1400 83 18 91/51 66 98 03/ 1356 84 15 95/53 69 98 03/ 1355 84 98/55 72 99 03/ 1350 86 15 105/57 75 98 / 1340 98.9 81 15 101/55 72 98 Nasal 2 cannula 08/19 1335 81 18 94/52 66 98 03/ 1330 81 16 93/51 67 98 03/ 1325 79 16 83/53 64 98 03/ 1322 Simple 8 mask 08/19 1320 83 17 106/54 77 98 03/ 1315 84 18 104/57 78 99 03/ 1310 84 15 102/56 73 99 03/ 1305 83 15 96/54 70 99 03/28 1300 84 14 94/52 68 98 03/28 1255 81 15 90/50 64 95 03/ 1255 81 15 90/50 95 03/28 1251 82 18 91/51 64 100 03/ 1250 81 18 90/50 63 100 03/ 1245 81 16 90/55 68 100 03/ 1240 82 16 92/55 68 100 03/ 1240 82 16 92/55 100 Nasal 2 [...] Weight (lb): Weight (oz): Weight (kg): 77.700 Medications:Active Meds + DC'd Last 24 HrsInsulin Glargine (Lantus/Semglee) 25 UNIT BEDTIME SUBQ Insulin Human Lispro (HUMALOG) 0 AC HS SUBQ Insulin Glargine (Lantus/Semglee) 10 UNIT NOW ONE SUBQ (DC) Insulin Glargine (Lantus/Semglee) 15 UNIT BEDTIME SUBQ (DC) Norepinephrine Bitartrate (NOREPINEPHRINE 8 MG/NS 250 ML) 250 ML TITRATE IV Sodium Chloride (SODIUM CHLORIDE 0.9%) 500 ML BOLUS ONCE ONE IV (DC) Albumin Human (ALBUMINAR 25%) 100 ML Q6H IV (DC) Sodium Chloride (SODIUM CHLORIDE 0.9%) 500 ML BOLUS ONCE ONE IV (DC) Sodium Chloride (SODIUM CHLORIDE 0.9%) 1,000 ML .[id number] IV Dextrose/Water (DEXTROSE 10% IN WATER) 250 ML ASDIR PRN IV (CKD) Insulin Human Regular (HumuLIN R) 100 UNIT ASDIR IV (DC) Sodium Chloride (SODIUM CHLORIDE 0.9%) 99 MLInsulin Human Regular (HUMAN INSULIN REG) 10 UNITS ONCE ONE IV (DC) Diphenhydramine HCl (BENADRYL) 12.5 MG PACU ONCE PRN IV (DC) Fentanyl Citrate (SUBLIMAZE) 100 MCG PACU Q10MIN PRN PRN IV (DC) Fentanyl Citrate (SUBLIMAZE) 50 MCG PACU Q10MIN PRN PRN IV (DC) Hydralazine HCl (APRESOLINE) 5 MG PACU Q10MIN PRN PRN IV (DC) Hydrocodone Bitart/Acetaminophen (NORCO 5/325) 1 TAB PACU ONCE PO (DC) Hydromorphone HCl (DILAUDID) 1 MG PACU Q10MIN PRN PRN IV (DC) Hydromorphone HCl (DILAUDID) 0.5 MG PACU Q5MIN PRN PRN IV (DC) Insulin Human Lispro (HUMALOG) 0 PACU ONCE PRN SUBQ (DC) Labetalol HCl (LABETALOL HCL) 5 MG PACU Q10MIN PRN PRN IV (DC) Meperidine HCl (MEPERIDINE HCL/PF) 12.5 MG PACU ONCE PRN IV (DC) Morphine Sulfate (morphine SULFATE) 2 MG PACU Q10MIN PRN PRN IV (DC) Ondansetron HCl (ZOFRAN) 4 MG PACU ONCE PRN IV (DC) Promethazine HCl (PHENERGAN) 25 MG PACU ONCE PRN PO (DC) Ropivacaine (NAROPIN 0.5% 150 MG/30mL) 150 MG ASDIR PRN LOCAL (DC) Tramadol HCl (ULTRAM) 50 MG PACU ONCE PO (DC) Phenylephrine HCl (YENNY-SYNEPHRINE 10MG/ML AMP) 0 .STK-MED ONE .ROUTE (DC) Acetaminophen (TYLENOL) 650 MG ONCE ONE RECTAL (DC) Dextrose/Water (DEXTROSE 10% IN WATER) 250 ML ASDIR PRN IV (CKD) Dextrose/Water (Dextrose 10% 1,000 mL) 1,000 ML ASDIR IV Insulin Human Regular (HumuLIN R) 100 UNIT ASDIR IV (DC) Sodium Chloride (SODIUM CHLORIDE 0.9%) 99 MLVancomycin HCl (VANCOMYCIN HCL) 1,000 MG Q12H IV Sodium Chloride (SODIUM CHLORIDE 0.9%) 250 MLMeropenem (MEROPENEM) 500 MG Q6H IV Sterile Water (WATER FOR INJECTION) 10 MLDextrose/Water (DEXTROSE 10% IN WATER) 250 ML ASDIR PRN IV (CKD) Clindamycin Phosphate (CLEOCIN 900 [...] NASAL Heparin Sodium (HEPARIN 5000 UNITS/ML) 5,000 UNIT Q8HR SUBQ Dextrose/Water (DEXTROSE 10% IN WATER) 250 ML ASDIR PRN IV (CKD) Magnesium Sulfate (MAGNESIUM SULFATE 2GM/SWFI 50ML) 50 ML ASDIR PRN IV Magnesium Sulfate (MAGNESIUM SULFATE 4GM/SWFI 100ML) 100 ML ASDIR PRN IV Miscellaneous Information (VANCOMYCIN PHARMACY TO DOSE) 1 EACH ASDIR IV (CKD) Potassium Chloride (POTASSIUM CHLORIDE 20MEQ TAB.ER) 20 MEQ ASDIR PRN PO Potassium Chloride (POTASSIUM CHLORIDE 20MEQ TAB.ER) 40 MEQ ASDIR PRN PO Potassium Chloride (POTASSIUM CHLORIDE 20MEQ TAB.ER) 60 MEQ ASDIR PRN PO (CKD) Potassium Chloride (KCL 20MEQ/SWFI 100ML) 100 ML ASDIR PRN IV Potassium Phosphate (POTASSIUM PHOSPHATE) 15 MM ASDIR PRN IV Sodium Chloride (SODIUM CHLORIDE 0.9%) 250 ML Physical ExamGeneral appearance: alert, awake, orientedHead/Eyes: normocephalicENT: moist mucosal membranesNeck: no JVDCardiovascular: regular rate rhythm, no heaveRespiratory: aerating well, clear to auscultation, symmetric expansion, no distressAbdomen: non-tender, normal bowel sounds, soft, no distentionGenitourinary: no bladder distentionExtremities: right foot markedly swollen with violacous disoloratoin of dorsum and lateral area extending to ankle. There were blisters with some blisters wereopen. Neuro/DIRECTOR OPERATING ROOM: alert, oriented X 3, 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 Considered stroke alert: noSkin: no rashPsychiatry: normal affect, normal judgment/insight, normal mood ResultsFindings/Data:Laboratory Tests 08/20 08/20 08/20 08/20 08/20 0756 0647 0554 0454 0259Chemistry Carbon Dioxide (21 - 33 mEq/l) 20 [...] Albumin (3.4 - 5.0 g/dL) 1.70 L 0308/19 172 1652 1601 Chemistry Sodium (134 - 147 [...] (Auto) (14.0 - 32.0 %) 3.8 L [place] % (Auto) (4.8 - 9.0 %) 3.7 L Eos % (Auto) (0.3 - 3.7 %) 0.0 L Baso % (Auto) (0.0 - 2.0 %) 0.3 Neut # (Auto) (2.0 - 7.6 x10 3/uL) 17.97 H Lymph # (Auto) (1.0 - 3.8 x10 3/uL) 0.76 L [place] # (Auto) (0.1 - 0.8 x10 3/uL) 0.74 Eos # (Auto) (0.0 - 0.2 x10 3/uL) 0.00 Baso # (Auto) (0.0 - 0.2 x10 3/uL) 0.07 Abs Immat Gran (auto) (0.00 - 0.03 x10 3/uL) 0.71 H Add Manual Diff NO Immature Gran % (0.0 - 2.0 %) 3.5 H Nucleated RBC % (0 - 0 %) 0.0 Nucleated RBCs # (Man) (0.0 - 0.1 x10 3/uL) 0.00 Laboratory Tests 08/19 1622 Urines Urine Color (YEL/STRAW) YELLOW Urine Appearance (CLEAR) SL CLOUDY Urine pH (5.0 - 7.0) 5.0 Ur Specific [place] (1.005 - 1.030) 1.013 Urine Protein (NEGATIVE) [...] Diagnosis, Assessment Plan Free Text DxA P NotesFree text DxA P notes:DKADM 2, poorly controlledsevere gas gangrene, right foot/necrotizing fascitisMRSA bacteremiaAKIsevere hyponatremia likely due to combination of severe hyperglycemia and dehydration from DKAsepsis due to foot infectionDM neuropathyHTNanemia, acute due to blood loss Plans: - [...] planning for I D today. Surgery on standby if needed to further debride his lower leg vs amputation. - WBC improving - will type and cross for blood and transfuse if less than 7 gms - d.w at [...] wean off insulin drip. Subq insulin and sliding scale. endo following - pain controlled - will likely need wound vac and alf IV antibiotic therapy - d/w at bedside - PT/OT at 1057 RPT #:[id number] OF REPORTPRProgress [id number]:53:00G.[id number] able for patient [id number]:58:13 [facility] 2022-08-19 20:38:00 [id number]+[id number]:38:00 [facility] ([facility])Cardiology Progress NoteREPORT#:[id number] REPORT STATUS: SignedDATE:08/19/22 TIME: 2037 PATIENT: KARMA ROWLAND UNIT #: [id number]#: [id number] [facility] AGE: 56 SEX: M ATTEND: Wilbert Ramires MDADM AUTHOR: Napoleon Parham MD * ALL edits or amendments must be made on the electronic/computer document * SubjectiveChief complaint:foot infectionComments:Status post surgery today, feeling better Telemetry: Sinus rhythm Objective GeneralVS/I O:24 hour I O ending at 0700: 08/19 0700 08/18 1900 Intake Total 3418.00 Output Total 1600 Balance 1818.00 Intake, IV 2818.00 Intake, Oral 600 Output, Urine 1600 Vital Signs: Date Time Temp Pulse Resp B/P B/P Pulse O2 O2 Flow FiO2 Mean Ox Delivery Rate 08/19 1840 80 16 129/70 93 97 08/19 1835 80 18 126/62 88 97 08/19 1830 80 16 121/65 87 97 03/28 [...] 03/28 1505 83 20 82/50 62 95 03/ 1500 80 18 83/51 63 96 03/ 1455 81 18 86/54 66 96 03/ 1450 82 14 87/50 63 96 03/ 1445 82 17 88/50 64 96 03/ 1440 82 16 85/54 65 96 03/ 1435 82 16 88/51 65 96 03/ 1430 84 16 89/54 68 96 03/ 1425 84 19 97/52 71 96 03/ 1420 85 19 99/56 74 95 / 1419 Nasal 2 cannula 08/19 1415 85 16 94/52 66 95 03/ 1410 85 16 94/50 67 95 03/ 1405 84 30 88/52 64 98 03/ 1400 83 18 91/51 66 98 03/ 1356 84 15 95/53 69 98 03/ 1355 84 98/55 72 99 03/ 1350 86 15 105/57 75 98 03/ 1340 98.9 81 15 101/55 72 98 Nasal 2 cannula 08/19 1335 81 18 94/52 66 98 / 1330 81 16 93/51 67 98 / 1325 79 16 83/53 64 98 / 1322 Simple 8 mask 08/19 1320 83 17 106/54 77 98 / 1315 84 18 104/57 78 99 / 1310 84 15 102/56 73 99 / 1305 83 15 96/54 70 99 / 1300 84 14 94/52 68 98 / 1255 81 15 90/50 64 95 / 1255 81 15 90/50 95 08/19 1251 82 18 91/51 64 100 03/ 1250 81 18 90/50 63 100 08/19 1245 81 16 90/55 68 100 03/ 1240 82 16 92/55 68 100 03/ 1240 82 16 92/55 100 Nasal 2 cannula 08/19 1239 82 15 91/50 64 100 03/ 1235 83 16 100 Nasal 2 cannula 08/19 1230 84 16 94/51 66 100 Nasal 2 cannula 08/19 1226 87 15 103/58 77 100 03/ 1225 86 15 100 Nasal 2 cannula 08/19 1220 87 14 100 Simple 6 mask 08/19 1215 87 16 107/55 75 100 Simple 8 mask 08/19 1210 88 16 100 Simple 8 mask 08/19 1209 99.9 90 19 107/55 78 100 Simple 8 mask 08/19 1100 101 18 103/56 76 95 03/ 1045 101 18 112/60 80 97 / 1030 101 19 115/60 82 96 / 1015 102 18 115/60 80 95 03/ 1000 101 20 110/58 78 95 03/ 0945 102 18 110/57 78 96 / 0930 101 18 106/55 74 95 / 0915 101 20 111/58 79 95 03/ 0900 101 19 112/56 79 94 08/19 0845 102 28 105/69 83 96 / 0830 101 20 110/59 81 96 / 0815 100 20 115/59 81 96 / 0800 101.9 08/19 0800 99 18 114/61 81 97 / 0745 98 17 113/60 79 95 / 0730 96 17 113/55 79 97 / 0715 94 15 107/55 76 95 / 0700 96 20 101/56 75 97 / 0600 91 16 114/58 80 95 / 0545 91 16 114/55 78 95 / 0530 95 21 119/59 81 96 / 0515 92 18 118/60 83 97 / 0514 94 15 96 / 0500 92 16 109/58 79 95 / 0445 91 17 109/59 80 96 / 0430 95 18 121/60 82 96 / 0415 91 16 112/59 81 96 / 0400 99.0 Room air / 0400 115/59 80 03/ 0345 89 19 107/55 76 96 / 0330 86 18 109/58 80 94 / 0315 87 18 109/53 78 94 /28 0300 93 17 125/57 82 96 03/28 0245 89 19 100/56 75 94 / 0230 95 18 121/60 84 96 / 0215 93 17 117/58 83 96 / 0200 91 20 101/57 74 92 03/28 0145 92 20 103/57 75 93 03/28 0130 92 20 105/57 77 92 03/28 0115 91 19 100/55 75 92 / 0100 95 22 90/51 66 95 03/28 0045 97 22 97/56 70 94 08/19 [...] 105/57 76 92 08/18 2147 99 25 108/ 76 PATIENT WEIGHT: Weight (lb): Weight (oz): Weight (kg): 77.700 Medications:Active Meds + DC'd Last 24 HrsInsulin Glargine (Lantus/Semglee) 15 UNIT BEDTIME SUBQ Norepinephrine Bitartrate (NOREPINEPHRINE 8 MG/NS 250 ML) 250 ML TITRATE IV Sodium Chloride (SODIUM CHLORIDE 0.9%) 500 ML BOLUS ONCE ONE IV (DC) Albumin Human (ALBUMINAR 25%) 100 ML Q6H IV Sodium Chloride (SODIUM CHLORIDE 0.9%) 500 ML BOLUS ONCE ONE IV (DC) Sodium Chloride (SODIUM CHLORIDE 0.9%) 1,000 ML .[id number] IV Dextrose/Water (DEXTROSE 10% IN WATER) 250 ML ASDIR PRN IV (CKD) Insulin Human Regular (HumuLIN R) 100 UNIT ASDIR IV (CKD) Sodium Chloride (SODIUM CHLORIDE 0.9%) 99 MLInsulin Human Regular (HUMAN INSULIN REG) 10 UNITS ONCE ONE IV (DC) Diphenhydramine HCl (BENADRYL) 12.5 MG PACU ONCE PRN IV Fentanyl Citrate (SUBLIMAZE) 100 MCG PACU Q10MIN PRN PRN IV Fentanyl Citrate (SUBLIMAZE) 50 MCG PACU Q10MIN PRN PRN IV Hydralazine HCl (APRESOLINE) 5 MG PACU Q10MIN PRN PRN IV Hydrocodone Bitart/Acetaminophen (NORCO 5/325) 1 TAB PACU ONCE PO (CKD) Hydromorphone HCl (DILAUDID) 1 MG PACU Q10MIN PRN PRN IV Hydromorphone HCl (DILAUDID) 0.5 MG PACU Q5MIN PRN PRN IV Insulin Human Lispro (HUMALOG) 0 PACU ONCE PRN SUBQ Labetalol HCl (LABETALOL HCL) 5 MG PACU Q10MIN PRN PRN IV Meperidine HCl (MEPERIDINE HCL/PF) 12.5 MG PACU ONCE PRN IV Morphine Sulfate (morphine SULFATE) 2 MG PACU Q10MIN PRN PRN IV Ondansetron HCl (ZOFRAN) 4 MG PACU ONCE PRN IV Promethazine HCl (PHENERGAN) 25 MG PACU ONCE PRN PO Ropivacaine (NAROPIN 0.5% 150 MG/30mL) 150 MG ASDIR PRN LOCAL Tramadol HCl (ULTRAM) 50 MG PACU ONCE PO (CKD) Phenylephrine HCl (YENNY-SYNEPHRINE 10MG/ML AMP) 0 .STK-MED ONE .ROUTE (DC) Acetaminophen (TYLENOL) 650 MG ONCE ONE RECTAL (DC) Bupivacaine HCl (MARCAINE 0.5%) 0 .STK-MED ONE .ROUTE (DC) Gentamicin Sulfate (GARAMYCIN) 0 .STK-MED ONE .ROUTE (DC) Lidocaine HCl (LIDOCAINE HCL/PF) 0 .STK-MED ONE .ROUTE (DC) Dextrose/Water (DEXTROSE 10% IN WATER) 250 ML ASDIR PRN IV (CKD) Dextrose/Water (Dextrose 10% 1,000 mL) 1,000 ML ASDIR IV Insulin Human Regular (HumuLIN R) 100 UNIT ASDIR IV (CKD) Sodium Chloride (SODIUM CHLORIDE 0.9%) 99 MLGlycopyrrolate (GLYCOPYRROLATE) 0 .STK-MED ONE .ROUTE (DC) Neostigmine Methylsulfate (PROSTIGMIN) 0 .STK-MED ONE .ROUTE (DC) Dexamethasone Sodium Phosphate (DECADRON) 0 .STK-MED ONE .ROUTE (DC) Fentanyl Citrate (SUBLIMAZE) 0 .STK-MED ONE .ROUTE (DC) Ketorolac Tromethamine (TORADOL 30 MG) 0 .STK-MED ONE .ROUTE (DC) Lidocaine HCl (XYLOCAINE) 0 .STK-MED ONE .ROUTE (DC) Midazolam HCl (VERSED) 0 .STK-MED ONE .ROUTE (DC) Ondansetron HCl (ZOFRAN) 0 .STK-MED ONE .ROUTE (DC) Propofol (DIPRIVAN 200MG/20ML INJECTION) 20 ML .STK-MED ONE IV (DC) Rocuronium [place] (ZEMURON) 0 .STK-MED ONE IV (DC) Vancomycin HCl (VANCOMYCIN HCL) 1,000 MG Q24H IV (DC) Sodium Chloride (SODIUM CHLORIDE 0.9%) 250 MLVancomycin HCl (VANCOMYCIN HCL) 1,000 MG Q12H IV Sodium Chloride (SODIUM CHLORIDE 0.9%) 250 MLMeropenem (MEROPENEM) 500 MG Q6H IV Sterile Water (WATER FOR INJECTION) 10 MLDextrose/Water (DEXTROSE 10% IN WATER) 250 ML ASDIR PRN IV (CKD) Insulin Human Regular (HumuLIN R) 100 UNIT ASDIR IV (DC) Sodium Chloride (SODIUM CHLORIDE 0.9%) 99 MLDextrose/Sodium Chloride (Dextrose 5% / 0.45% NaCl) 1,000 ML .Q6H40M IV (DC) Clindamycin Phosphate [...] NASAL Heparin Sodium (HEPARIN 5000 UNITS/ML) 5,000 UNIT Q8HR SUBQ Dextrose/Water (DEXTROSE 10% IN WATER) 250 ML ASDIR PRN IV (CKD) Magnesium Sulfate (MAGNESIUM SULFATE 2GM/SWFI 50ML) 50 ML ASDIR PRN IV Magnesium Sulfate (MAGNESIUM SULFATE 4GM/SWFI 100ML) 100 ML ASDIR PRN IV Miscellaneous Information (VANCOMYCIN PHARMACY TO DOSE) 1 EACH ASDIR IV (CKD) Potassium Chloride (POTASSIUM CHLORIDE 20MEQ TAB.ER) 20 MEQ ASDIR PRN PO Potassium Chloride (POTASSIUM CHLORIDE 20MEQ TAB.ER) 40 MEQ ASDIR PRN PO Potassium Chloride (POTASSIUM CHLORIDE 20MEQ TAB.ER) 60 MEQ ASDIR PRN PO (CKD) Potassium Chloride (KCL 20MEQ/SWFI 100ML) 100 ML ASDIR PRN IV Potassium Phosphate (POTASSIUM PHOSPHATE) 15 MM ASDIR PRN IV Sodium Chloride (SODIUM CHLORIDE 0.9%) 250 ML Physical ExamGeneral appearance: alert, awake, orientedNeck: no bruit/NL carotids, no JVDCardiovascular: CV assessment: abnormal S1/S2, regular rate and rhythm, no ectopyRespiratory: clear to auscultation, no distressLower extremity: LE assessment: edemaNeuro/DIRECTOR OPERATING ROOM: alert, oriented X 3 Considered stroke alert: noWound/incision: Location:right foot ResultsFindings/Data:Laboratory Tests 08/19 1727 1652 1601 1451 Chemistry [...] 08/19 08/19 08/18 0340 0332 0330 0101 2246Chemistry Sodium (134 - 147 mEq/L) 129 L [...] Ionized Calcium Mitzi (1.09 - 1.30 1.07 LMMOL/L) Phosphorus (2.5 - 4.9 MG/DL) 2.8 Magnesium (1.80 - 2.40 mg/dL) 2.13 Albumin (3.4 - 5.0 g/dL) 1.70 L 08/187 Chemistry POC Glucose (70 - 110 MG/DL) [...] - 32.0 %) 3.8 L 4.3 L [place] % (Auto) (4.8 - 9.0 %) 3.7 L 3.1 L Eos % (Auto) (0.3 - 3.7 %) 0.0 L 0.0 L Baso % (Auto) (0.0 - 2.0 %) 0.3 0.3 Neut # (Auto) (2.0 - 7.6 x10 3/uL) 17.97 H 19.17 H Lymph # (Auto) (1.0 - 3.8 x10 3/uL) 0.76 L 0.91 L [place] # (Auto) (0.1 - 0.8 x10 3/uL) 0.74 0.67 Eos # (Auto) (0.0 - 0.2 x10 3/uL) 0.00 0.01 Baso # (Auto) (0.0 - 0.2 x10 3/uL) 0.07 0.07 Abs Immat Gran (auto) (0.00 - 0.03 x10 3/uL) 0.71 H 0.51 H Add Manual Diff NO NO Immature Gran % (0.0 - 2.0 %) 3.5 H 2.4 H Nucleated RBC % (0 - 0 %) 0.0 0.0 Nucleated RBCs # (Man) (0.0 - 0.1 x10 3/uL) 0.00 0.00 Laboratory Tests 08/19 1622 Urines Urine Color (YEL/STRAW) YELLOW Urine Appearance (CLEAR) SL CLOUDY Urine pH (5.0 - 7.0) 5.0 Ur Specific [place] (1.005 - 1.030) 1.013 Urine Protein (NEGATIVE) [...] (1.80 - 2.40 mg/dL) 2.03 2.06 2.13 2.13 B-Natriuretic Peptide (0 - 100 PG/ML) 96.0 08/18 2246 Chemistry Magnesium (1.80 - 2.40 mg/dL) 2.13 Radiology data:Recent Impressions:ULTRASOUND - DUP LE ART UNI/LTD 08/19 0950 Report Impression - Status: SIGNED Entered: 08/19/2022 1056 IMPRESSION: No sonographic evidence for flow-limiting stenosis in the right lower extremity arterial system. Impression By: [email or web address] - Abraham Ross M.D. Diagnosis, Assessment Plan Free Text DxA P NotesFree Text DxA P Notes:Impression: 1. Preop eval/cardiac clearance2. Infected right foot gas gangrene3. DKA4. Sepsis5. Hypertension 6. Anemia Recommendation: Patient presented for evaluation of altered mental status, weakness and elevatedblood sugar. Diagnosed with DKA and sepsis. 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 Known cardiac history of hypertension and hyperlipidemia. Denies prior history of CAD, CHF or arrhythmia. EKG abnormal, NSR with anterior infarct. Vital signs stable. No prior cardiac work-up. -Check echocardiogram-Monitor telemetry for arrhythmia-Monitor blood pressure trend-Wound care and IV antibiotic therapy-Supportive care 08/19: Patient doing better postop, blood pressure control, currently in sinus rhythm, lower extremity artery Doppler negative for any significant PAD, continue current management from primary team and podiatry service, continue monitor on telemetry for arrhythmia postop, supportive care, discussed with patient and family as well as RN, will follow. at 1329 RPT #:[id number] OF REPORTPRProgress [id number]:38:00G.[id number] able for patient [id number]:29:48 [facility] 2022-08-19 17:01:00 [id number]/[id number] jWLgR2pdmXOzCac+Fd/[id number]:01:00 [facility] ([facility])Infectious Dis. Progress NoteREPORT#:[id number] REPORT STATUS: SignedDATE:08/19/22 TIME: 1701 PATIENT: KARMA ROWLAND UNIT #: [id number]#: [id number] [address] AGE: 56 SEX: M ATTEND: Wilbert Ramires [facility] AUTHOR: Anthony Curtis MD * ALL edits or amendments must be made on the electronic/computer document * SubjectiveChief complaint:Follow-up on MRSA bacteremia, right lower extremity necrotizing soft tissue infection.HPI:Had right lower extremity I D per podiatry earlier today. Patient seems more awake and alert. Denies acute or new complaints currently. No major overnight events. Objective GeneralVS/I O:Vital Signs Date Temp Pulse Resp B/P B/P [...] O2 Flow FiO2 Mean Ox Delivery Rate 08/19 1605 75 15 78/50 59 95 08/19 1600 76 14 78/51 60 98 08/19 1555 77 17 78/53 61 98 08/19 1550 78 18 78/50 60 97 08/19 1545 77 17 75/47 56 97 03/28 1540 76 18 76/46 56 95 03/ 1535 76 16 75/47 55 97 03/ 1534 79 20 74/44 54 94 03/ 1530 77 16 76/48 57 97 03/ 1525 79 17 85/53 65 97 03/ 1520 82 17 84/55 63 97 03/ 1516 83 17 83/53 64 97 03/ 1511 83 18 81/60 66 95 03/ 1505 83 20 82/50 62 95 03/28 1500 80 18 83/51 63 96 03/ 1455 81 18 86/54 66 96 03/ 1450 82 14 87/50 63 96 03/ 1445 82 17 88/50 64 96 03/ 1440 82 16 85/54 65 96 03/ 1435 82 16 88/51 65 96 03/ 1430 84 16 89/54 68 96 / 1425 84 19 97/52 71 96 03/ 1420 85 19 99/56 74 95 03/ 1419 Nasal 2 cannula 08/19 1415 85 16 94/52 66 95 03/ 1410 85 16 94/50 67 95 03/ 1405 84 30 88/52 64 98 03/ 1400 83 18 91/51 66 98 03/ 1356 84 15 95/53 69 98 03/ 1355 84 98/55 72 99 03/28 1350 86 15 105/57 75 98 03/ 1340 98.9 81 15 101/55 72 98 Nasal 2 cannula 08/19 1335 81 18 94/52 66 98 03/ 1330 81 16 93/51 67 98 03/ 1325 79 16 83/53 64 98 03/ 1322 Simple 8 mask 08/19 1320 83 17 106/54 77 98 03/ 1315 84 18 104/57 78 99 03/ 1310 84 15 102/56 73 99 03/28 1305 83 15 96/54 70 99 03/28 1300 84 14 94/52 68 98 03/28 1255 81 15 90/50 64 95 03/28 1255 81 15 90/50 95 03/28 1251 82 18 91/51 64 100 03/28 1250 81 18 90/50 63 100 03/28 1245 81 16 90/55 68 100 03/28 1240 82 16 92/55 68 100 03/28 1240 82 16 92/55 100 Nasal 2 [...] 08/19 1100 101 18 103/56 76 95 03 1045 101 18 112/60 80 97 / 1030 101 19 115/60 82 96 08/19 1015 102 18 115/60 80 95 / 1000 101 20 110/58 78 95 08/19 0945 102 18 110/57 78 96 08/19 0930 101 18 106/55 74 95 / 0915 101 20 111/58 79 95 08/19 0900 101 19 112/56 79 94 08/19 0845 102 28 105/69 83 96 08/19 0830 101 20 110/59 81 96 08/19 0815 100 20 115/59 81 96 08/19 0800 99 18 114/61 81 97 08/19 0745 98 17 113/60 79 95 08/19 0730 96 17 113/55 79 97 08/19 0715 94 15 107/55 76 95 08/19 0700 96 20 101/56 75 97 08/19 0600 91 16 114/58 80 95 [...] 99.0 Room air 08/19 0400 115/59 80 03/ 0345 89 19 107/55 76 96 / 0330 86 18 109/58 80 94 / 0315 87 18 109/53 78 94 08/19 0300 93 17 125/57 82 96 08/19 0245 89 19 100/56 75 94 08/19 0230 95 18 121/60 84 96 08/19 0215 93 17 117/58 83 96 08/19 0200 91 20 101/57 74 92 08/19 0145 92 20 103/57 75 93 08/19 [...] 92 08/18 2147 99 25 108/54 76 08/19 1999 99.6 Room air 08/19 1999 100 20 102/55 74 95 08/18 1930 104 20 107/59 79 96 08/18 1915 104 20 107/55 75 96 08/18 1900 109 20 119/63 84 96 08/18 1834 107 25 96 08/18 1830 103 26 107/55 75 97 08/18 1815 105 24 101/55 71 95 08/18 1800 101 21 104/52 71 96 08/18 1745 101 18 96/50 70 97 08/18 1730 102 24 107/57 77 93 08/18 1715 104 24 117/56 77 94 24 hour I O ending at 0700: 08/19 0700 08/18 1900 Intake Total 3418.00 Output Total 1600 Balance 1818.00 Intake, IV 2818.00 Intake, Oral 600 Output, Urine 1600 PATIENT WEIGHT: Weight (lb): Weight (oz): Weight (kg): 77.700 Physical ExamGeneral appearance: alert, awake, no acute distressWound/incision: Location:right foot currently dressedCardiovascular: normal heart sounds, regular rate rhythm, no murmurRespiratory: clear to auscultation, aerating well, symmetric expansionAbdomen: non-tender, soft, no distentionExtremities: edema, RLE pitting edema notedNeuro/DIRECTOR OPERATING ROOM: alert, 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 Considered stroke alert: noSkin: lesions, no rashPsychiatry: normal affect, normal mood Diagnosis, Assessment PlanFree Text A P:Assessment: Mr. Rowland is a 56-year-old male with history of diabetes mellitus type 2, hypertension who was admitted with altered mental status and right-sidedfoot infection. According to him, he noticed a blister on his right foot around3 days prior to presentation. His foot got progressively more swollen and erythema extended proximally to his lateral foot and ankle. Here, patient was tachycardic and had a leukocytosis of 26.5. CT abdomen and pelvis with contrastis concerning for possible prostate abscess. CT of lower extremity without contrast shows extensive soft tissue edema with mottled gas in the subcutaneous and intramuscular compartments of the foot, compatible with gas-forming infection. Patient's blood cultures have come back positive for MRSA in 2 out of 2 sets. Infectious disease consultation is requested for antimicrobial recommendations. *MRSA bacteremia*Severe sepsis due to above*Right lower extremity necrotizing fasciitis*DKA*Prostatic mass versus abscess*ERIKA*Hyponatremia*Diabetic neuropathy*Diabetes mellitus type 2*Hypertension -Afebrile.-Leukocytosis of 21.3 on today's CBC noted. Overall, slightly downtrending.-Hemoglobin A1c >14%.-Initial blood cultures from 08/18/2022 positive for MRSA in 2 out of 2 sets.-Wound culture also positive for Staphylococcus aureus. -TTE 08/18/2022 negative for any obvious vegetations. -Went to the OR today per podiatry for an I D. Operative note currently pending.-Seen by urology for prostatic mass versus abscess. Plans for pelvic MRI noted. Plan: -Repeat blood cultures x2 today.-Continue to repeat serial blood cultures till bacteremia clears.-Presentation is likely due to MRSA infection only and the source is right foot.-If there is no additional growth, would likely stop meropenem by tomorrow.-Continue clindamycin x5 to 7 days total.-Continue vancomycin.-If patient has persistent bacteremia, he might need a JIMENA.-Continue supportive ICU care. CURRENT ANTIMICROBIALS:Clindamycin + meropenem + vancomycin, started 3Day 2 at 1710 RPT #:[id number] OF REPORTPRProgress jmpl4469-08-17W73:01:00G.[id number] able for patient dlkeYZWVBNOZHWUSKF0327-24-25O50:10:23 [facility] 2022-08-19 16:20:00 [id number] 1NtEsahCvRRrMwRV4gBpLkVsD40vn V3AkCBQLFuWEWHQqFticlilesg09946-98-19J09:20:00 [facility] ([facility])Pharmacy Prog.Note-VancomycinREPORT#:[id number] REPORT STATUS: SignedDATE:08/19/22 TIME: 1620 PATIENT: KARMA ROWLAND UNIT #: [id number]#: [id number] [address]TVO: [address] AGE: 56 SEX: M ATTEND: Wilbert Ramires [facility] AUTHOR: Tolu Tobias [facility] * ALL edits or amendments must be made on the electronic/computer document * Vancomycin Vancomycin Medication TherapyGoal: AUC 400-600 mg*hr/LIndication for treatment:Empiric (now confirmed foot infection and bacteremia)Weight: Actual weight (kg): 77.7VS and I/O:Vital Signs Date Temp Pulse Resp B/P B/P Mean Pulse Ox FiO2 08/18-08/19 36.6-37.7 75-135 14-30 74-156/44-78 54-96 91-100 72 hours ending at 0700 08/19 0708/18 07 1900Intake 3418.00TotalOutput 1600TotalBalance 1818.00 Intake, IV 2818.00Intake, 600OralOutput, 1600UrinePatient 77.7 kgWeightWeight Stated/Rep ortedMeasurementMethod 72 Hour I O Total 08/19 0700 08/18 0700 08/17 0700 Intake Total 3418.00 Output Total 1600 Balance 1818.00 Labs:Laboratory Test : 08/19 08/19 08/19 08/19 08/18 [...] (4.5 - 11.0 x10 3/uL) 26.5 H Microbiology:08/19 1210 ABSCESS: Wound Culture - RES08/19 1210 ABSCESS: Anaerobic Culture - RES08/19 1210 ABSCESS: Gram Stain - RES08/18 0915 FOOT: Wound Culture - ORD08/18 0207 FOOT: Wound Culture - RES COAG POS YLUDPSXWHVGZHV49/27 0207 THROAT: Group A Streptococcus Screen (VERONICA) - COMP08/18 0207 THROAT: Streptococcus Culture - COMP08/18 0203 BLOOD: Blood Culture - RES COAG POS JGELSSXAZZMOCN96/27 0203 BLOOD: Blood Culture Gram Stain - RES08/18 0203 BLOOD: Blood Culture - RES COAG POS LABKZVXXVSORZY17/27 0203 BLOOD: Blood Culture Gram Stain - RES Treatment plan: consult, change regimenRegimen:HPI: Karma Rowland is a 56 yo male with PMH of DM and HTN who presented with AMS, DKA, and a progressively worsening right foot infection. Patient was started empirically on antibiotics. Pharmacy is consulted to dose vancomycin. Requesting Provider: Andrew London MDIndication: EmpiricVancomycin AUC Goal: 400-600 mcg*hr/mLConcomitant Antibiotics: -Clindamycin 900 mg IV z5q-Vyuryhzsf 500 mg IV q6h 08/19 A/P: Labs and Vitals: WBC 21.3 (decrease from 26.5) Patient with a Tmax of 37.6C over the past 24 hoursRenal Function: BUN/SCr 39/1.1 (relatively unchanged in past 24 hours, improvement from admission) Urine Output with 1600 mL document over the past 24 hours Estimated CrCl 72 mL/min (using adjusted body weight)Microbiology: 08/19 Abscess Cx from right foot: Many GPC on gram stain (updated 08/19) 08/18 Blood Cx x2: 06/28 Coag Pos Staph (MRSA per Verigene) (updated 08/19) 08/18 Wound Cx from right foot: Many Coag Pos Staph (updated 08/19) 08/18 Rapid Strep: NegativeImagin/27 TTE: No valvular abnormalities 08/[address]: Extensive soft tissue edema with mottled gas in subcutaneous and intramuscular compartments compatible with gas-forming infection 08/18 Right foot X-ray: No convincing evidence for OMDosing and Monitoring: -Patient received a loading dose of vancomycin yesterday, was set to start 1 g q24h today -Considering improving renal function and confirmed MRSA bacteremia, have increased frequency to q12h -Patient with confirmed MRSA bacteremia, will plan for AUC monitoring provided stable renal function Pharmacy will continue to monitor Thank you for this consult at 1621 RPT #:[id number] OF REPORTPRProgress vcfr1886-61-47Q57:20:00G.[id number] able for patient cyjxRTKTPACADVNTTM3026-15-23R52:22:06 [facility] 2022-08-19 15:40:00 [id number] fa7Z7pIZQ4ma9jPmO75iddJocRBih 7zFk5OFHaJGdrGO+R8SMPC/zaUV3505-68-34R69:40:00 [facility] ([facility])Critical Care Progress NoteREPORT#:[id number] REPORT STATUS: SignedDATE:08/19/22 TIME: 1540 PATIENT: KARMA ROWLAND UNIT #: [id number]#: [id number] [address]: [birth year] AGE: 56 SEX: M ATTEND: Wilbert Ramires MDADM AUTHOR: Alma De La Rosa [employer]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 Presented 08/18 with fever, AMS. He wasfound to have labs consisent with DKA with AGAP 21 and glucose 700+. RLE was very swollen/painful CT done concerning for gas gangrene. Review of SystemsMusculoskeletal: Extremity pain: Reports: right lower. Extremity swelling: Reports: right lower. All systems rev neg: except as marked Objective GeneralVS/I OVital Signs Date Temp Pulse Resp B/P B/P Mean Pulse Ox FiO2 08/18-08/19 98.9-99.9 79-109 14-26 83-126/50-71 66-87 91-100 24 hour I O ending at 0700: 08/19 0700 08/18 1900 Intake Total 3418.00 Output Total 1600 Balance 1818.00 Intake, IV 2818.00 Intake, Oral 600 Output, Urine 1600 PATIENT WEIGHT: Weight (lb): Weight (oz): Weight (kg): 77.700 Temperature maximum: 99.9 Physical ExamGeneral appearance: alert, awake, oriented, no acute distressHead/eyes: atraumatic, clear cornea, normocephalic, PERRLAENT: moist mucosal membranes, normal dentition, normal noseNeck: full range of motion, non-tender, no JVD, no masses or swellingCardiovascular: decreased cap refill, tachycardia, regular rate and rhythmRespiratory: aerating well, clear to auscultation, symmetric expansionAbdomen: soft, non-tender, normal bowel soundsExtremities: decreased range of motion, edema, moves allMusculoskeletal decreased ROMNeuro/DIRECTOR OPERATING ROOM: alert, 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, 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, no sensory deficits Considered stroke alert: noSkin: abnormal color, abnormal temperatureWound/incision: Location:right foot Site condition: dressing clean dry, dressing intactPsychiatry: normal affect ResultsFindings/data:Laboratory Tests 08/19/22 1115:[Embedded Image Not Available] 08/19/22 0737:[Embedded Image Not Available] 08/19/22 0445:[Embedded Image Not Available] 08/19/22 0340:[Embedded Image Not Available] 08/18/22 2246:[Embedded Image Not Available]Microbiology:08/19 1210 ABSCESS: Wound Culture - RES08/19 1210 ABSCESS: Anaerobic Culture - RES08/19 1210 ABSCESS: Gram Stain - RES08/18 0915 FOOT: Wound Culture - ORD08/18 0207 FOOT: Wound Culture - RES COAG POS RNGIBIYQZSKNJW37/27 0207 THROAT: Group A Streptococcus Screen (VERONICA) - COMP08/18 0207 THROAT: Streptococcus Culture - COMP08/18 0203 BLOOD: Blood Culture - RES COAG POS QKQJTNEQITRSTY43/27 0203 BLOOD: Blood Culture Gram Stain - RES08/18 0203 BLOOD: Blood Culture - RES COAG POS FPYGTCRWFMJREX34/27 0203 BLOOD: Blood Culture Gram Stain - RES Radiology dataRecent Impressions:ULTRASOUND - [facility] UNI/LTD 08/19 0950 Report Impression - Status: SIGNED Entered: 08/19/2022 1056 IMPRESSION: No sonographic evidence for flow-limiting stenosis in the right lower extremity arterial system. Impression By: [email or web address] - Abraham Ross M.D. Results: labs reviewed, vital signs reviewed, vital signs stable, rhythm personally rev'd, x-ray personally reviewed, current med profile rev'd Diagnosis, Assessment PlanFree text A P:56 year old male unknown PMH who presented 08/18 with fever, AMS. He was found to have labs consisent with DKA with AGAP 21 and glucose 700+. Problem list:* Acute post op pain* DKA* pseudohyponatremia* tachycardia/hypotension likely secondary to hypovolemia* ERIKA* microcytic anemia - iron deficency* gram positive bactermia likely MRSA* RLE necrotizing fascitis /gas gangrene Neuro: pain regimen per scaleCV: cont IVF resuscitation. levophed if needed to keep MAP>65Pulm: no issues. wean NC to maintain SpO2>92%GI: no issues, advance diet. bowel regimen Renal: cont IVF, trend cr, serial chemistry, monitor I OHeme: trend HH, will need outpatient eval for etiologyID: blood cx + CONS. merrem/ clindamycinEndo: insulin protocol + lantus per wood milling machine operator. gap closed. a1c>14.MUSK: s/p RLE debridement on 08/19 GI px: pepcidDVT px: hep sqDispo: ICU I have spent 35 minutes critical care time assessing, reviewing labs and imagingand discussing plan of care with the critical care junior systems engineer. at 1611 RPT #:[id number] OF REPORTPRProgress cydx0003-48-35X99:40:00G.[id number] able for patient uvpjIEEHCPERESPGKL4669-45-36M44:11:20 [facility] 2022-08-19 15:15:00 [id number] V2FU5f4iy1KyZIkdgNp+xG2f3J8pS 4HRzCWPPDePP21W4BzLyrAKRKAv8865-25-36G68:15:00 [facility]End[facility] Progress NoteREPORT#:[id number] REPORT STATUS: SignedDATE:08/19/22 TIME: 1515 PATIENT: KARMA ROWLAND UNIT #: [id number]#: [id number] [address] AGE: 56 SEX: M ATTEND: Wilbert Ramires MDADM AUTHOR: Braxton Chapin MD * ALL edits or amendments must be made on the electronic/computer document * SubjectivePatient reports: no complaints Objective GeneralVS:Last Documented: Result Date Time O2 Delivery Nasal cannula 08/19 1419 O2 Flow Rate 2 08/19 1419 Pulse Ox 98 08/19 1340 B/P 101/55 08/19 1340 Temp 37.2 08/19 1340 Pulse 81 08/19 1340 Resp 15 08/19 1340 B/P Mean 80 08/19 0600 PATIENT WEIGHT: Weight (lb): Weight (oz): Weight (kg): 77.700 Medications:Active Meds + DC'd Last 24 HrsInsulin Human Regular (HUMAN INSULIN REG) 10 UNITS ONCE ONE IV (DC) Diphenhydramine HCl (BENADRYL) 12.5 MG PACU ONCE PRN IV Fentanyl Citrate (SUBLIMAZE) 100 MCG PACU Q10MIN PRN PRN IV Fentanyl Citrate (SUBLIMAZE) 50 MCG PACU Q10MIN PRN PRN IV Hydralazine HCl (APRESOLINE) 5 MG PACU Q10MIN PRN PRN IV Hydrocodone Bitart/Acetaminophen (NORCO 5/325) 1 TAB PACU ONCE PO (CKD) Hydromorphone HCl (DILAUDID) 1 MG PACU Q10MIN PRN PRN IV Hydromorphone HCl (DILAUDID) 0.5 MG PACU Q5MIN PRN PRN IV Insulin Human Lispro (HUMALOG) 0 PACU ONCE PRN SUBQ Labetalol HCl (LABETALOL HCL) 5 MG PACU Q10MIN PRN PRN IV Meperidine HCl (MEPERIDINE HCL/PF) 12.5 MG PACU ONCE PRN IV Morphine Sulfate (morphine SULFATE) 2 MG PACU Q10MIN PRN PRN IV Ondansetron HCl (ZOFRAN) 4 MG PACU ONCE PRN IV Promethazine HCl (PHENERGAN) 25 MG PACU ONCE PRN PO Ropivacaine (NAROPIN 0.5% 150 MG/30mL) 150 MG ASDIR PRN LOCAL Tramadol HCl (ULTRAM) 50 MG PACU ONCE PO (CKD) Phenylephrine HCl (YENNY-SYNEPHRINE 10MG/ML AMP) 0 .STK-MED ONE .ROUTE (DC) Acetaminophen (TYLENOL) 650 MG ONCE ONE RECTAL (DC) Bupivacaine HCl (MARCAINE 0.5%) 0 .STK-MED ONE .ROUTE (DC) Gentamicin Sulfate (GARAMYCIN) 0 .STK-MED ONE .ROUTE (DC) Lidocaine HCl (LIDOCAINE HCL/PF) 0 .STK-MED ONE .ROUTE (DC) Dextrose/Water (DEXTROSE 10% IN WATER) 250 ML ASDIR PRN IV (CKD) Dextrose/Water (Dextrose 10% 1,000 mL) 1,000 ML ASDIR IV Insulin Human Regular (HumuLIN R) 100 UNIT ASDIR IV (CKD) Sodium Chloride (SODIUM CHLORIDE 0.9%) 99 MLGlycopyrrolate (GLYCOPYRROLATE) 0 .STK-MED ONE .ROUTE (DC) Neostigmine Methylsulfate (PROSTIGMIN) 0 .STK-MED ONE .ROUTE (DC) Dexamethasone Sodium Phosphate (DECADRON) 0 .STK-MED ONE .ROUTE (DC) Fentanyl Citrate (SUBLIMAZE) 0 .STK-MED ONE .ROUTE (DC) Ketorolac Tromethamine (TORADOL 30 MG) 0 .STK-MED ONE .ROUTE (DC) Lidocaine HCl (XYLOCAINE) 0 .STK-MED ONE .ROUTE (DC) Midazolam HCl (VERSED) 0 .STK-MED ONE .ROUTE (DC) Ondansetron HCl (ZOFRAN) 0 .STK-MED ONE .ROUTE (DC) Propofol (DIPRIVAN 200MG/20ML INJECTION) 20 ML .STK-MED ONE IV (DC) Rocuronium Gentry (ZEMURON) 0 .STK-MED ONE IV (DC) Vancomycin HCl (VANCOMYCIN HCL) 1,000 MG Q24H IV (DC) Sodium Chloride (SODIUM CHLORIDE 0.9%) 250 MLVancomycin HCl (VANCOMYCIN HCL) 1,000 MG Q12H IV Sodium Chloride (SODIUM CHLORIDE 0.9%) 250 MLMeropenem (MEROPENEM) 500 MG Q6H IV Sterile Water (WATER FOR INJECTION) 10 MLDextrose/Water (DEXTROSE 10% IN WATER) 250 ML ASDIR PRN IV (CKD) Insulin Human Regular (HumuLIN R) 100 UNIT ASDIR IV (DC) Sodium Chloride (SODIUM CHLORIDE 0.9%) 99 MLDextrose/Sodium Chloride (Dextrose 5% / 0.45% NaCl) 1,000 ML .Q6H40M IV (DC) Clindamycin Phosphate [...] NASAL Heparin Sodium (HEPARIN 5000 UNITS/ML) 5,000 UNIT Q8HR SUBQ Piperacillin Sod/Tazobactam Sod (ZOSYN 3.375GM) 3.375 GM Q8H IV (DC) Sodium Chloride (SODIUM CHLORIDE 0.9% 100 ML) 100 MLDextrose/Water (DEXTROSE 10% IN WATER) 250 ML ASDIR PRN IV (CKD) Insulin Human Regular (HumuLIN R) 100 UNIT ASDIR IV (DC) Sodium Chloride (SODIUM CHLORIDE 0.9%) 99 MLMagnesium Sulfate (MAGNESIUM SULFATE 2GM/SWFI 50ML) 50 ML ASDIR PRN IV Magnesium Sulfate (MAGNESIUM SULFATE 4GM/SWFI 100ML) 100 ML ASDIR PRN IV Miscellaneous Information (VANCOMYCIN PHARMACY TO DOSE) 1 EACH ASDIR IV (CKD) Potassium Chloride (POTASSIUM CHLORIDE 20MEQ TAB.ER) 20 MEQ ASDIR PRN PO Potassium Chloride (POTASSIUM CHLORIDE 20MEQ TAB.ER) 40 MEQ ASDIR PRN PO Potassium Chloride (POTASSIUM CHLORIDE 20MEQ TAB.ER) 60 MEQ ASDIR PRN PO (CKD) Potassium Chloride (KCL 20MEQ/SWFI 100ML) 100 ML ASDIR PRN IV Potassium Phosphate (POTASSIUM PHOSPHATE) 15 MM ASDIR PRN IV Sodium Chloride (SODIUM CHLORIDE 0.9%) 250 ML Physical ExamGeneral appearance: alert, awake Diagnosis, Assessment PlanHospital course to date:Laboratory Tests: 08/19 08/19 08/19 08/19 08/19 1338 [...] 1.50 L 08/19 08/19 08/19 08/19 0805 4837 4857 6017 Chemistry Sodium (134 - 147 mEq/L) 130 [...] (Auto) (14.0 - 32.0 %) 4.3 L [place] % (Auto) (4.8 - 9.0 %) 3.1 L Eos % (Auto) (0.3 - 3.7 %) 0.0 L Baso % (Auto) (0.0 - 2.0 %) 0.3 Neut # (Auto) (2.0 - 7.6 x10 3/uL) 19.17 H Lymph # (Auto) (1.0 - 3.8 x10 3/uL) 0.91 L [place] # (Auto) (0.1 - 0.8 x10 3/uL) 0.67 Eos # (Auto) (0.0 - 0.2 x10 3/uL) 0.01 Baso # (Auto) (0.0 - 0.2 x10 3/uL) 0.07 Abs Immat Gran (auto) (0.00 - 0.03 x10 3/uL) 0.51 H Add Manual Diff NO Immature Gran % (0.0 - 2.0 %) 2.4 H Nucleated RBC % (0 - 0 %) 0.0 Nucleated RBCs # (Man) (0.0 - 0.1 x10 3/uL) 0.00 08/18 08/18 08/18 08/18 2246 2157 1854 [...] 1210 Gram Stain - RES ABSCESS Recent Impressions:UL[facility]ASOUND - [facility] UNI/LTD 08/19 0926 Report Impression - Status: SIGNED Entered: 08/19/2022 1056 IMPRESSION: No sonographic evidence for flow-limiting stenosis in the right lower extremity arterial system. Impression By: [email or web address] - Abraham Ross M.D. Laboratory Tests: 08/18 08/18 08/18 08/18 08/18 1430 1430 1404 1309 1203Chemistry Sodium (134 - 147 mEq/L) 131 L [...] 20.0 L Cholesterol/HDL Ratio (3.43 - 4.97 4.00RATIO) TSH (0.42 - 5.47) 0.96 Free T4 (0.77 - 1.61 ng/dL) 0.7 L 08/18 08/18 08/18 08/18 08/18 1107 1004 0900 0823 0549 Chemistry POC Glucose (70 - 110 MG/DL) 223 H 304 H 405 H 449 H Hemoglobin A1c (4.8 - 6.0 %A1C) 13.4 H 08/18 08/18 08/18 0549 0305 0207Blood Gas Puncture Site R Radial O2 Saturation [...] O2 Delivery Device Room Air FiO2 (%) 21Chemistry Sodium (134 - 147 mEq/L) 121 *L [...] 2.34 Albumin (3.4 - 5.0 g/dL) 1.60 LSerology Influenza Type A (PCR) (Negative) Negative Influenza Type B (PCR) (Negative) NegativeToxicology Acetone, Quant (Neg - <20 mg/dL) Large [...] 914 Wound Culture - ORD FOOT 08/18 020 Wound Culture - RECD FOOT 08/18 0207 Group A Streptococcus Screen (VERONICA) - COMP THROAT 08/18 0207 Streptococcus Culture - COMP THROAT 08/18 0203 Blood Culture - RES BLOOD 08/18 0203 Blood Culture Gram Stain - RES BLOOD 08/18 0203 Blood Culture - RES BLOOD 08/18 0203 Blood Culture Gram Stain - RES BLOOD Recent Impressions:RADIOLOGY - XR CHEST 2 V 08/18 0201 Report Impression - Status: SIGNED Entered: 08/18/2022 0317 IMPRESSION: Ill-defined somewhat nodular opacity measuring 3.2 cm laterally in the right mid lung suspicious for rounded pneumonia given provided history, but underlying neoplasm can not be excluded. Followup radiographs are recommended after appropriate treatment in order to document complete resolution and exclude an underlying process or neoplasm. Impression By: [email or web address] - Dom Adams M.D.RADIOLOGY - XR FOOT 3 + V RT 08/18 0238 Report Impression - Status: SIGNED Entered: 08/18/2022 0358 IMPRESSION: No acute osseous findings. No convincing evidence for osteomyelitis. MRI is more sensitive for detecting osteomyelitis.Impression By: [email or web address] - Jay Ladd M.D.CAT SCAN - CT ABD PELVIS W/CONT 08/18 0339 Report Impression - Status: SIGNED Entered: 08/18/2022 0546 IMPRESSION: 3.3 cm hypodensity in the left posterior prostate or seminal vesicle. This could represent an abscess. Contrast-enhanced MRI of the pelvis would be helpful for further evaluation.No acute intra-abdominal findings otherwise.Impression By: Ankur Ladd M.D.CAT SCAN - CT LOWER EXTRM W/O C RT 08/18 0645 Report Impression - Status: SIGNED Entered: 08/18/2022 0827 IMPRESSION: Extensive soft tissue edema with mottled gas in the subcutaneous and intramuscular compartments of the foot compatible with gas-forming infection. Disease extends into the visualized distal leg. Impression By: Jamel Dorantes M.D. 1. 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 DKA3. Cellulitis and gangrene of the right foot.4. Sepsis5. Altered mental status6. High LFTsBlood sugar 315-292 mg/dL.A gap 5HbA1c 13.4%White count 26.5Sodium 121.Adjust insulin drip settingsStart by mouth feedingsWound care and IV antibiotics. at 1516 RPT #:[id number] OF REPORTPRProgress aner6802-20-92O75:15:00G.[id number] able for patient zssmHKPPTNWZCIFZTJ4225-52-88B09:16:30 [facility] 2022-08-19 12:46:00 [id number] a26stYwtteuNE5nCqzoKPj4jo2CQF HWISqh+UfNZNpxbJrhPQGqN9GEC0011-50-35N42:46:80753 8-[address] [address] PATIENT NAME: KARMA ROWLAND ADMIT DATE: 08/18/22ACCOUNT NO: [id number] ROOM NO: [facility] AGE: 56 REPORT TYPE: OPERATIVE REPORT SEX: M ADMITTING PHYSICIAN:Wilbert Ramires MD ATTENDING PHYSICIAN:Wilbert Ramires MD OPERATION DATE: SURGEON: Liam Pedersen DPM MEDIA PLANNER / BUYER: No application assistant. PREOPERATIVE DIAGNOSES:1. 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 Abscess, right foot to right ankle.3. Sepsis.4. Diabetes with peripheral neuropathy.5. Peripheral vascular disease.6. Ulceration, right foot to right ankle. POSTOPERATIVE DIAGNOSES:1. 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 Abscess, right foot to right ankle.3. Sepsis.4. Diabetes with peripheral neuropathy.5. Peripheral vascular disease.6. Ulceration, right foot to right ankle. PROCEDURE: Incisional and excisional debridement of right foot and right ankle. INDICATIONS FOR PROCEDURE: A very complicated situation pleasant man. He is inthe Intensive Care Unit. He stepped here because he has DKA. He has severe infection. I saw him yesterday. We found on CAT scan that he had gas in the tissues. He has severe infection. I discussed with his before the surgery. I discussed with her that there is high chance of loss of limb. He has quite severe infection on the CAT scan you can see continued gas in the tissues throughout the lateral right ankle, the medial right foot and the dorsalright mid foot. Discussed with internal medicine team and discussed with cardiology team. We were able to get cardiac clearance late last night. We do order arterial studies have been done yet and also significant issues with circulation. He has peripheral vascular disease and going to be contributing factor. Cardiology, Dr. Anne Parham is on the case to see what can we improve with that. He did also cleared him for surgery. All questions were answered before the surgery with him and his . ANESTHESIA: General anesthesia. HEMOSTASIS: No tourniquet was used. PATIENT NAME: KARMA ROWLAND PROCEDURE IN DETAIL: After informed consent was obtained, the patient's preoperative workup was completed, he was brought to the operating room and placed on the operating room table in supine position. General anesthesia was performed by Anesthesia team. He was brought from the intensive care unit directly to the operating room. Right lower extremity was prepped and draped. No tourniquet was used. I utilized the CAT scan data and films. We reviewed where we will make incisions and performed debridement in appropriate locations. I started the first one at the lateral aspect of his right ankle. I continues somewhat more inferiorly towards the right hindfoot. I debrided an area on the lateral aspectof the right ankle that was roughly 10 cm x 4 cm. It was skin, subcutaneous tissue, muscle and tendon debridement. There was also some liquified bone thereas well. I debrided the bone in that area only. The mid foot and the medial hindfoot, I do not have to debride any bone. From this area I found tunneling ofbone cavities and significant purulent material and found gas bubbles. I eradicate all this and I debrided liquefied material including skin, subcutaneous tissue, muscle, tendon and bone that was liquified. I went up through some tunnels and some space more superiorly. I found at the end ofit. The end of it was still in the more superior portion of the ankle underneath the flap of tissue that was raised. I took cultures of the most purulent material and sent to microbiology for Gram stain as well as aerobic andanaerobic culture and sensitivity. I irrigated copiously with a pulse irrigatormachine as well as 80 mg of gentamicin. I obtained hemostasis. The bleeding ofthis area was poor, tendon and bone were completely exposed. I packed it with 1-inch packing strips and placed a large dressing. Attention was now dedicated to the right mid foot dorsally. I made an incision starting from the mid foot dorsally. I made an incisional and excisional debridement here as well. This debridement was skin, subcutaneous tissue, muscle and tendon debridement. There was not any exposed bone. There was not any involved bone. It was roughly about 6 cm x 3 cm. I also opened up the pocket that came from the dorsal area that connected to the lateral ankle. I connected two of these and I debrided the subcutaneous tissue and muscle tendon layer of any liquefied material. I found some additional pockets and I continues to incise and excised through the dorsal forefoot as well. Then, I utilized the pulse metal cleaner machine with the saline and gentamicin. I irrigated copiously. The bleeding here was poor as well. I then paid attention to the medial aspect of the right hindfoot. I excised thetissue and incised through the tissue here as well. This area was probably about 8 cm x 3 cm. Skin, subcutaneous tissue, muscle and tendon were all debrided. There was no bone [TIME: 05:32] also go through the laciniate ligament to see if there was any purulence there. The purulence and the air bubbles were all mostly between the flexor retinaculum at the laciniate ligamentand the skin level. There is quite a bit of space. I went through some tunneling. I opened up the tunnel and I opened up the pocket and eradicated anyof the abscess. I debrided skin, subcutaneous tissue, muscle, tendon that was liquified that was necrotic. Irrigated copiously with saline and gentamicin irrigation with pulse metal cleaner machine. Make sure we had good hemostasis. Bleeding in the surgery was controlled as well. I packed the wound with packingstrips. I placed a bulky dressing throughout the right foot and the right ankle. There was not any apparent involvement up into the leg that I could tell. We continue monitoring that. I talked to Dr. Caceres and Dr. Oswald from PATIENT NAME: KARMA ROWLAND General Surgery yesterday. If there is involvement of the infection going up his leg. We might need general surgery consultation. With today's procedure, I did not necessarily notice that. The bleeding was poor. I had discussion after surgery with Dr. Anne Parham with cardiology again. We went through the arterial studies [TIME: 06:52] may have taken for angiogram. He is still at high risk for a below-knee amputation if not more complicated situation. Thepatient was extubated and transported back to the intensive care unit with vitalsigns stable and vascular status intact to right foot. He tolerated the procedure and anesthesia well, no apparent complications. All sponge and needlecounts correct. FLUIDS: Less than a liter of crystalloid. BLOOD LOSS: Minimal. PATHOLOGY: None. MICROBIOLOGY: Abscessed tissue, right foot. COMPLICATIONS: None. INJECTABLES: None. I was present for all aspects of procedure: After the surgery, I did go back tothe intensive care unit and I spoke to the again and I went over with some of the findings. I will follow up with her tomorrow as well. Dictated By: Liam Pedersen DPM Date Dictated: 08/19/2022 12:46:06Date Transcribed: 08/19/2022 15:59:49SAR/IVÁN/AHMJob #: [id number] ID: [id number] by Liam Pedersen DPM On 08/25/2022 09:42:00 PM at 0942 PATIENT NAME: KARMA ROWLAND kworup4178-61-84Z61:59:00G.[id number] lable for patient zrcdACPMKCPCJOCRQH7689-75-21S48:42:34 [facility] 2022-08-19 07:13:00 [id number] i3FlA6ydKAv9QwJ48i8hOXHH0Azcj dbuCQ3BCH7vtkxxxIfz1LvwcD5D9876-44-53M67:13:00 [facility] HospitalHospitalist Progress NoteREPORT#:[id number] REPORT STATUS: SignedDATE:08/19/22 TIME: 712 PATIENT: KARMA ROWLAND UNIT #: [id number]#: [id number] [address]: [address] AGE: 56 SEX: M ATTEND: Wilbert Ramires [facility] AUTHOR: Wilbert Ramires MD * ALL edits or amendments must be made on the electronic/computer document * SubjectiveChief complaint:AMS and right foot infection. doing ok. not much pain. Review of SystemsAll systems rev neg: except as noted Objective GeneralVS/I O:Vital Signs: Date Time Temp Pulse Resp B/P B/P Pulse O2 O2 Flow FiO2 Mean Ox Delivery Rate 08/19 0600 91 16 114/58 80 95 08/19 0545 91 16 114/55 78 95 08/19 0530 95 21 119/59 81 96 08/19 0515 92 18 118/60 83 97 08/19 0514 94 15 96 08/19 0500 92 16 109/58 79 95 08/19 0445 91 17 109/59 80 96 08/19 0430 95 18 121/60 82 96 03/28 0415 91 16 112/59 81 96 03/ 0400 99.0 Room air / 0400 115/59 80 03/ 0345 89 19 107/55 76 96 / 0330 86 18 109/58 80 94 / 0315 87 18 109/53 78 94 03/28 0300 93 17 125/57 82 96 03/28 0245 89 19 100/56 75 94 03/28 0230 95 18 121/60 84 96 / 0215 93 17 117/58 83 96 / 0200 91 20 101/57 74 92 03/28 0145 92 20 103/57 75 93 03/ 0130 92 20 105/57 77 92 03/ 0115 91 19 100/55 75 92 03/ 0100 95 22 90/51 66 95 / 0045 97 22 97/56 70 94 / 0030 92 20 91/55 69 94 / 0015 98 20 105/59 77 95 03/ 0000 98.9 Room air / 0000 94 19 97/55 73 91 / 2345 101 23 100/57 75 95 03/ 2330 97 21 101/55 75 95 03/ 2315 98 21 108/55 75 94 / 2300 101 21 112/61 80 95 / 2245 104 21 126/61 87 93 / 2230 103 19 116/57 80 91 / 2215 100 21 101/55 75 92 / 2200 100 21 105/57 76 92 / 2147 99 25 108/54 76 08/19 1999 99.6 Room air 08/19 1999 100 20 102/55 74 95 / 1930 104 20 107/59 79 96 03/ 1915 104 20 107/55 75 96 03/ 1900 109 20 119/63 84 96 / 1834 107 25 96 03/ 1830 103 26 107/55 75 97 03/27 1815 105 24 101/55 71 95 03/27 1800 101 21 104/52 71 96 / 1745 101 18 96/50 70 97 03/ 1730 102 24 107/57 77 93 03/ 1715 104 24 117/56 77 94 03/ 1700 106 22 112/58 79 95 03/ 1645 108 26 106/71 81 96 08/18 1637 109 23 96 03/ 1630 107 21 116/58 80 96 03/ 1615 106 20 108/58 77 97 03/ 1600 98.9 109 22 101/58 72 96 Room air / 1600 104 22 101/58 77 96 03/ 1545 101 21 97/56 73 95 03/ 1530 103 23 97/56 73 96 03/ 1515 101 23 99/56 74 96 03/ 1500 100 23 104/55 78 95 03/ 1445 113 25 111/58 80 97 03/ 1430 101 19 95 / 1415 100 20 108/51 74 96 03/ 1400 105 20 103/58 75 98 03/ 1345 102 22 103/58 77 96 08/18 1337 102 19 97 03/ 1330 101 21 98/56 74 95 03/ 1315 103 21 95/53 69 95 03/ 1300 102 22 94/53 70 96 03/ 1245 104 22 104/57 76 96 / 1230 107 21 107/56 78 96 / 1215 108 21 102/57 76 95 / 1200 99.4 105 17 106/59 74 97 Room air / 1200 108 17 106/59 77 97 03/ 1145 109 22 111/57 80 96 03/ 1130 113 21 117/57 79 98 03/ 1115 109 19 114/56 80 96 / 1100 108 19 130/53 78 98 03/ 1046 110 20 156/65 93 100 / 1031 134 25 138/65 94 99 03/ 1016 109 28 141/67 96 93 / 1015 109 26 100 03/27 1000 108 27 127/64 89 100 / 0945 105 27 116/55 79 100 03/ 0930 135 26 120/57 82 99 03/ 0915 101 24 126/56 82 100 03/ 0900 98 16 112/59 77 100 03/ 0845 93 23 110/57 78 100 03/ 0830 95 21 112/59 81 100 03/ 0815 93 18 117/58 81 100 03/ 0800 99.5 117 21 113/69 83 98 Room air 08/18 0800 116 30 108/78 88 100 03/ 0745 86 27 104/69 77 99 03/ 0730 88 25 108/70 85 100 08/18 0718 83 14 101/56 73 100 24 hour I O ending at 0700: 08/19 0700 08/18 1900 Intake Total 3418.00 Output Total 1600 Balance 1818.00 Intake, IV 2818.00 Intake, Oral 600 Output, Urine 1600 PATIENT WEIGHT: Weight (lb): Weight (oz): Weight (kg): 77.700 Medications:Active Meds + DC'd Last 24 HrsVancomycin HCl (VANCOMYCIN HCL) 1,000 MG Q24H IV Sodium Chloride (SODIUM CHLORIDE 0.9%) 250 MLMeropenem (MEROPENEM) 500 MG Q6H IV Sterile Water (WATER FOR INJECTION) 10 MLDextrose/Water (DEXTROSE 10% IN WATER) 250 ML ASDIR PRN IV (CKD) Insulin Human Regular (HumuLIN R) 100 UNIT ASDIR IV (CKD) Sodium Chloride (SODIUM CHLORIDE 0.9%) 99 MLDextrose/Sodium Chloride (Dextrose 5% / 0.45% NaCl) 1,000 ML .Q6H40M IV Clindamycin Phosphate (CLEOCIN [...] Vancomycin HCl (VANCOMYCIN HCL) 1,750 MG ONCE ONE IV (DC) Sodium Chloride (NS 0.9%) 500 MLHeparin Sodium (HEPARIN 5000 UNITS/ML) 5,000 UNIT Q8HR SUBQ Piperacillin Sod/Tazobactam Sod (ZOSYN 3.375GM) 3.375 GM Q8H IV (DC) Sodium Chloride (SODIUM CHLORIDE 0.9% 100 ML) 100 MLDextrose/Water (DEXTROSE 10% IN WATER) 250 ML ASDIR PRN IV (CKD) Dextrose/Water (Dextrose 10% 1,000 mL) 1,000 ML ASDIR IV (DC) Insulin Human Regular (HumuLIN R) 100 UNIT ASDIR IV (DC) Sodium Chloride (SODIUM CHLORIDE 0.9%) 99 MLMagnesium Sulfate (MAGNESIUM SULFATE 2GM/SWFI 50ML) 50 ML ASDIR PRN IV Magnesium Sulfate (MAGNESIUM SULFATE 4GM/SWFI 100ML) 100 ML ASDIR PRN IV Miscellaneous Information (VANCOMYCIN PHARMACY TO DOSE) 1 EACH ASDIR IV (CKD) Potassium Chloride (POTASSIUM CHLORIDE 20MEQ TAB.ER) 20 MEQ ASDIR PRN PO Potassium Chloride (POTASSIUM CHLORIDE 20MEQ TAB.ER) 40 MEQ ASDIR PRN PO Potassium Chloride (POTASSIUM CHLORIDE 20MEQ TAB.ER) 60 MEQ ASDIR PRN PO (CKD) Potassium Chloride (KCL 20MEQ/SWFI 100ML) 100 ML ASDIR PRN IV Potassium Phosphate (POTASSIUM PHOSPHATE) 15 MM ASDIR PRN IV Sodium Chloride (SODIUM CHLORIDE 0.9%) 250 MLSodium Chloride (SODIUM CHLORIDE 0.9%) 1,000 ML .Q5H IV (DC) Physical ExamGeneral appearance: alert, awake, orientedHead/Eyes: normocephalicENT: moist mucosal membranesNeck: no JVDCardiovascular: regular rate rhythm, no heaveRespiratory: aerating well, clear to auscultation, symmetric expansion, no distressAbdomen: non-tender, normal bowel sounds, soft, no distentionGenitourinary: no bladder distentionExtremities: right foot markedly swollen with violacous disoloratoin of dorsum and lateral area extending to ankle. There were blisters with some blisters wereopen. Neuro/DIRECTOR OPERATING ROOM: alert, oriented X 3, 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 Considered stroke alert: noSkin: no rashPsychiatry: normal affect, normal judgment/insight, normal mood ResultsFindings/Data:Laboratory Tests 08/19 08/19 08/19 08/19 08/19 0445 0340 0332 0330 0101Chemistry Sodium (134 - 147 mEq/L) 130 L [...] Ionized Calcium Mitzi (1.09 - 1.30 1.07 LMMOL/L) Phosphorus (2.5 - 4.9 MG/DL) 2.9 Magnesium (1.80 - 2.40 mg/dL) 2.13 Total Bilirubin (0.0 - 1.0 mg/dL) 0.60 AST (15 - 37 IUnit/L) 27 ALT (30 - 65 IUnit/L) 13 L Total Alk Phosphatase (20 - 125 150 HIUnit/L) Total Protein (6.4 - 8.2 g/dL) 5.6 [...] 08/18 08/18 08/18 1430 1430 1404 1309 1203Chemistry Sodium (134 - 147 mEq/L) 131 L [...] 20.0 L Cholesterol/HDL Ratio (3.43 - 4.97 4.00RATIO) TSH (0.42 - 5.47) 0.96 Free T4 [...] (Auto) (14.0 - 32.0 %) 4.3 L [place] % (Auto) (4.8 - 9.0 %) 3.1 L Eos % (Auto) (0.3 - 3.7 %) 0.0 L Baso % (Auto) (0.0 - 2.0 %) 0.3 Neut # (Auto) (2.0 - 7.6 x10 3/uL) 19.17 H Lymph # (Auto) (1.0 - 3.8 x10 3/uL) 0.91 L [place] # (Auto) (0.1 - 0.8 x10 3/uL) 0.67 Eos # (Auto) (0.0 - 0.2 x10 3/uL) 0.01 Baso # (Auto) (0.0 - 0.2 x10 3/uL) 0.07 Abs Immat Gran (auto) (0.00 - 0.03 x10 3/uL) 0.51 H Add Manual Diff NO Immature Gran % (0.0 - 2.0 %) 2.4 H Nucleated RBC % (0 - 0 %) 0.0 Nucleated RBCs # (Man) (0.0 - 0.1 x10 3/uL) 0.00 Diagnosis, Assessment Plan Free Text DxA P NotesFree text DxA P notes:DKADM 2, poorly controlledsevere gas gangrene, right foot/necrotizing fascitisMRSA bacteremiaAKIsevere hyponatremia likely due to combination of severe hyperglycemia and dehydration from DKAsepsis due to foot infectionDM neuropathyHTNanemia, acute due to blood loss Plans: - [...] planning for I D today. Surgery on standby if needed to further debride his lower leg vs amputation. - WBC improving - will type and cross for blood and transfuse if less than 7 gms - d.w at bedside - patient and is aware that he may require amputation if his tissues are non viable - remains on Insulin drip. blood sugars in the 200-300 range. AG has closed. endocrine is following. - keep in ICU at 0827 RPT #:[id number] OF REPORTPRProgress qumd5115-21-21N47:13:00G.IDQT42475714-0101HMXoybr able for patient aqisGUENKBVUTLDJNB4151-93-68E91:28:02 [facility] 2022-08-18 22:27:00 [id number]+ iZGvADm/Ax2J+8dn7ngieN6oq2lHy nvGriD/Xmkh22rS0jYpT6k8/8co1507-34-94C41:27:78527 7-[address]13 [place] [address] PATIENT NAME: KARMA ROWLAND ADMIT DATE: 08/18/22ACCOUNT NO: [id number] ROOM NO: [facility] AGE: 56 REPORT TYPE: eECHOCARDIOGRAM REPORT SEX: M ADMITTING PHYSICIAN:Wilbert Ramires MD ATTENDING PHYSICIAN:Wilbert Ramires MD *[place], [place] [address]Phone: Cie: [phone] Transthoracic Echocardiogram Patient: Consuelo Rowlandudy Date: 08/18/2022 BP: 156 / 65 Location: COCCLURN: [id number] : 1965 Age: 56 Height: 66 in / 167.6 [facility]ove[facility] [id number] Gender: M Weight: 170.6 lb / 77.6 kgBMI/BSA: 27.6 kg/m 2 / 1.87 m 2 *Ordering Physician: * Rohit Benitez *Interpreting Physician: * Napoleon Parham MD*Fruit Or Nut Picker: * Nubia To Indications: Cardiac clearance. Study data: Transthoracic echocardiogram. Procedure: Transthoracicechocardiography was performed. Image quality was fair. Complete 2D,complete spectral Doppler, and color Doppler. Location: Bedside.Patient status: Inpatient. Patient room number: M325. Study status:Routine. Findings Left ventricle: The cavity size is normal. Wall thickness is at theupper limits of normal. Systolic function is normal. The estimatedejection fraction is 55-59%. Wall motion is normal; there are noregional wall motion abnormalities. Doppler parameters are consistentwith abnormal left ventricular relaxation (grade 1 diastolicPATIENT NAME: ROWLANDMYESHAKARMA dysfunction).Right ventricle: The cavity size is normal. Systolic function isnormal. TAPSE measurement is estimated at 22 mm. Insufficient tricuspidregurgitation jet to estimate RVSP.Left atrium: The atrium is mildly dilated.Right atrium: The atrium is normal in size.Aorta: Aortic root: The aortic root is upper normal in size.Aortic valve: The valve is structurally normal. The valve istrileaflet. There is no evidence of stenosis. There is noregurgitation.Mitral valve: The valve is structurally normal. There is noevidence of stenosis. There is no regurgitation.Tricuspid valve: The valve is structurally normal. There is trivialregurgitation.Pulmonic valve: Not well visualized. The valve is structurallynormal. There is physiologic regurgitation.Pericardium: A trivial pericardial effusion is identified posterior tothe heart.Pulmonary arteries:The main pulmonary artery is normal-sized.Systemic veins:Inferior vena cava: The vessel is at the upper limits of normal in size.The respirophasic diameter changes are in the normal range (= 50%). Measurements Left ventricle Value Ref SAMANTHA, LAX 4.9 cm 4.2 - 5.8 ESD, LAX 3.5 cm 2.5 - 4.0 ESD/bsa, LAX 1.9 cm/m 2 1.3 - 2.1 FS, LAX 29 % 25 - 43 ESD/bsa major 3.5 cm/m 2 --------- ax, A4C SAMANTHA/bsa minor 3.5 cm/m 2 --------- ax, A4C SAMANTHA major ax, 8.4 cm --------- A2C ESD [...] cm/sec >=7.0 TDI E/e', med yonatan, 10 ---------PATIENT NAME: KARMA ROWLAND TDI E', avg, TDI 8.8 cm/sec --------- [...] Value Ref Leaflet sep, MM 2.48 cm ---------PATIENT NAME: KARMA ROWLAND Peak v, S 1.43 m/sec --------- Mean [...] cm 2 --------- Pulmonic valve Value Ref WV v, ED 1.07 m/sec --------- Aortic root Value Ref Root diam, ED 3.92 cm --------- MM Conclusions Summary: 1. Left ventricle: The cavity size is normal. Wall thickness is at the upper limits of normal. Systolic function is normal. The estimated ejection fraction is 55-59%. Wall motion is normal; there are no regional wall motion abnormalities. Doppler parameters are consistent with abnormal left ventricular relaxation (grade 1 diastolic dysfunction).2. Left atrium: The atrium is mildly dilated.3. Pericardium, extracardiac: A trivial pericardial effusion is identified posterior to the heart. Prepared and electronically signed by Napoleon Parham MD08/18/2022 22:27 PATIENT NAME: KARMA ROWLAND at 2227 PATIENT NAME: KARMA ROWLAND :27:0 0G.[id number] for patient tfggDYOTBFMXBROLBG9858-32-54V14:28:13 [facility] 2022-08-18 19:00:00 [id number]+blTA 6bT5Ux4yEFJfstZD4iQdCHykdXei0 NsYNXp1ZWdhSVeSgnIgUNa2KwSD3893-37-32N16:00:94580 8-[address] [address] PATIENT NAME: KARMA ROWLAND ADMIT DATE: 08/18/22ACCOUNT NO: [id number] ROOM NO: [id number] AGE: 56 REPORT TYPE: CONSULTATION REPORT SEX: M ADMITTING PHYSICIAN:Wilbert Ramires MD ATTENDING PHYSICIAN:Wilbert Ramires MD CONSULTATION DATE:08/18/2022 CONSULTATION: Wilbert Ramires MD HISTORY OF PRESENT ILLNESS: This is a 56-year-old gentleman admitted with aright foot infection, altered mental status, who also had DKA. During workup,there is a questionable hypodensity in the prostate. He denies any dysuria,urgency, frequency, hematuria. He is a poor historian. PAST MEDICAL HISTORY: Diabetes, neuropathy, hypertension, hyperlipidemia, DKA. PAST SURGICAL HISTORY: Foot and ankle surgery. FAMILY HISTORY: Noncontributory. SOCIAL HISTORY: Denies current alcohol, tobacco or drug use. HOME MEDICATIONS: Reviewed from the MAR. ALLERGIES: NO KNOWN DRUG ALLERGIES. REVIEW OF SYSTEMS: A 14-point review of system was obtained and is negativeother than HPI. PHYSICAL EXAMINATION:VITAL SIGNS: Afebrile, T-max 37.5, heart rate 107, blood pressure 107/55, 96%on room air.GENERAL: Alert. No acute distress, nontoxic.HEENT: Confused.EXTREMITIES: Moving all extremities well.ABDOMEN: Soft, nontender, nondistended. No guarding or rebound. LABORATORY DATA: White blood cell count 26.5, hemoglobin 9, platelets 355.Creatinine 1.4. Urine pending. IMAGING STUDIES: CT scan of the abdomen and pelvis was reviewed in detail.There is a questionable 3 cm area in the left inferior pelvis, imvolving the prostate and left seminal vesicle. ASSESSMENT AND PLAN: A 56-year-old male admitted without any particularurination issue. Persistant elevated white blood count. There is a question of hyperdensity in the prostate. We will get a PSA and order an MRI of theprostate. Discussed this with the patient and the family in detail and answered PATIENT NAME: KARMA ROWLAND all questions. Dictated By: David Du MD Date Dictated: 08/18/2022 19:00:04Date Transcribed: 08/18/2022 20:29:11JH/MARIA ESTHER/NAGJob #: [id number] ID: [id number] and Edited by David Du MD On 09/16/22 4:52:30 PM at 0459 PATIENT NAME: KARMA ROWLAND :29:00G.ME [id number] for patient qgccZECHWUWNMAEWLH5944-24-87L07:00:16 [facility] 2022-08-18 17:07:00 [id number]/ufi fy51ZmhVcAUi0TlVm1cn1ScGFCigt zqURtbC2OyxBkEDyZzLuVY2Ty2p5233-56-01J30:07:00 [facility] ([facility])Infect Disease Consult NoteREPORT#:[id number] REPORT STATUS: SignedDATE:08/18/22 TIME: 1707 PATIENT: KARMA ROWLAND UNIT #: [id number]#: [id number] [address] AGE: 56 SEX: M ATTEND: Wilbert Ramires [facility] AUTHOR: Anthony Curtis MD * ALL edits or amendments must be made on the electronic/computer document * History of Present IllnessRequesting Clinician: Alma De La Rosa for consult:EBONY necrotizing fasciitis HPI:Mr. Rowland is a 56-year-old male with history of diabetes mellitus type 2, hypertension who was admitted earlier today with altered mental status and right-sided foot infection. According to him, he noticed a blister on his right foot around 3 days ago. His foot got progressively more swollen and erythema extended proximally to his lateral foot and ankle. He came to ED for further evaluation and management. Here, patient is afebrile (Tmax 99.5 F). However, he is tachycardic and has a leukocytosis of 26.5. CT abdomen and pelvis with contrast is concerning for possible prostate abscess. CT of lower extremity without contrast shows extensive soft tissue edema with mottled gas inthe subcutaneous and intramuscular compartments of the foot, compatible with gas-forming infection. Patient's blood cultures have come back positive for MRSA in 2 out of 2 sets. He is currently on combination of clindamycin, piperacillin-tazobactam and vancomycin. Infectious disease consultation is requested for antimicrobial recommendations. Patient has been seen by podiatry service and plan for taking him to the OR noted. History - Adult longitudinalAdditional medical history:DM 2 since age 33 DM neuropathy HTN hyperlipidemiaAdditional surgical history:as aboveAdditional family history:reviewed and non contributoryAlcohol use: Denies EtOH useDrug use: Denies recreational drugsSmoking status for patients 13 years old or older: Never SmokerOther social history: Local resident, Good social supportAllergies:Coded Allergies:No Known Allergies (03/23/11) Review of Systems Free Text ROS NotesFree Text ROS Notes:A 12 point review of systems was performed. It was somewhat limited due to patient's limited responses. The pertinent positives and negatives that I couldgather are detailed in HPI. Objective GeneralVS/I O:Vital Signs Date Temp Pulse Resp B/P B/P [...] O2 Flow FiO2 Mean Ox Delivery Rate 08/18 1637 [...] 08/18 1330 101 21 98/56 74 95 03/ 1315 103 21 95/53 69 95 03 1300 102 22 94/53 70 96 03 1245 104 22 104/57 76 96 08/18 1230 107 21 107/56 78 96 03 1215 108 21 102/57 76 95 03 1200 99.4 105 17 106/59 74 97 Room air 08/18 1200 108 17 106/59 77 97 03/ 1145 109 22 111/57 80 96 03 1130 113 21 117/57 79 98 03/ 1115 109 19 114/56 80 96 03 1100 108 19 130/53 78 98 03 1046 110 20 156/65 93 100 08/18 1031 134 25 138/65 94 99 03 1016 109 28 141/67 96 93 08/18 1015 109 26 100 08/18 1000 108 27 127/64 89 100 08/18 0945 105 27 116/55 79 100 08/18 0930 135 26 120/57 82 99 03 0915 101 24 126/56 82 100 08/18 [...] 03/ 0730 88 25 108/70 85 100 08/18 0718 83 14 101/56 73 100 08/18 0700 82 17 87/58 68 100 08/18 0530 85 16 107/58 75 98 08/18 0500 86 21 99/59 73 99 08/18 0430 89 20 94/55 70 99 03 0415 88 16 90/51 65 100 03 0400 91 28 110/56 80 97 08/18 0152 97.8 97 18 112/55 74 100 Room air 24 hour I O ending at 0700: 08/18 0700 08/17 1900 Intake Total Output Total Balance Patient 77.7 kg Weight Weight Stated/Reported Measurement Method PATIENT WEIGHT: Weight (lb): Weight (oz): Weight (kg): 77.700 Physical ExamGeneral appearance: alert, awake, no acute distressWound/incision: Location:right foot currently dressedHead/Eyes: atraumatic, normocephalicNeck: supple/no meningismus, no JVDCardiovascular: tachycardia, no murmurRespiratory: clear to auscultation, aerating well, symmetric expansionAbdomen: non-tender, soft, no distentionExtremities: edema, RLE pitting edema notedNeuro/DIRECTOR OPERATING ROOM: alert, 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Considered stroke alert: noSkin: lesions, no rashPsychiatry: unable to evaluate ResultsFindings/Data:Laboratory Tests 08/18 0305 Blood Gas Puncture Site [...] 08/18 08/18 08/18 1430 1430 1404 1309 1203Chemistry Sodium (134 - 147 mEq/L) 131 L [...] 20.0 L Cholesterol/HDL Ratio (3.43 - 4.97 4.00RATIO) TSH (0.42 - 5.47) 0.96 Free T4 [...] - 57 U/L) 24 Laboratory Tests 08/18 204 Hematology WBC (4.5 - 11.0 x10 3/uL) [...] Anisocytosis 1+ Macrocytosis 1+ Laboratory Tests 08/18 0205 Serology Influenza Type A (PCR) (Negative) [...] 206 Streptococcus Culture - COMP THROAT Radiology data:Recent Impressions:RADIOLOGY - XR CHEST 2 V 08/18 200 Report Impression - Status: SIGNED Entered: 08/18/2022 0317 IMPRESSION: Ill-defined somewhat nodular opacity measuring 3.2 cm laterally in the right mid lung suspicious for rounded pneumonia given provided history, but underlying neoplasm can not be excluded. Followup radiographs are recommended after appropriate treatment in order to document complete resolution and exclude an underlying process or neoplasm. Impression By: [email or web address] Cr Adams M.D.RADIOLOGY - XR FOOT 3 + V RT 08/18 0238 Report Impression - Status: SIGNED Entered: 08/18/2022 0358 IMPRESSION: No acute osseous findings. No convincing evidence for osteomyelitis. MRI is more sensitive for detecting osteomyelitis.Impression By: TipWSabas Ladd M.D.CAT SCAN - CT ABD PELVIS W/CONT 08/18 0339 Report Impression - Status: SIGNED Entered: 08/18/2022 0546 IMPRESSION: 3.3 cm hypodensity in the left posterior prostate or seminal vesicle. This could represent an abscess. Contrast-enhanced MRI of the pelvis would be helpful for further evaluation.No acute intra-abdominal findings otherwise.Impression By: TipWSabas Ladd M.D.CAT SCAN - CT LOWER EXTRM W/O C RT 08/18 0645 Report Impression - Status: SIGNED Entered: 08/18/2022 0827 IMPRESSION: Extensive soft tissue edema with mottled gas in the subcutaneous and intramuscular compartments of the foot compatible with gas-forming infection. Disease extends into the visualized distal leg. Impression By: Jamel Dorantes M.D. Diagnosis, Assessment Plan Free Text DxA P NotesFree text DxA P notes:Assessment: Mr. Rowland is a 56-year-old male with: *MRSA bacteremia*Severe sepsis due to above*Right lower extremity necrotizing fasciitis*DKA*ERIKA*Hyponatremia*Diabetic neuropathy*Diabetes mellitus type 2*Hypertension Plan: -Discontinue piperacillin-tazobactam.-Start meropenem at a renally adjusted dose.-Agree with vancomycin and clindamycin and would continue same for now.-Would recommend early surgical intervention.-Repeat blood cultures in a.m. to document clearance of bacteremia.-Continue to repeat serial blood cultures till bacteremia clears.-Recommend TTE.-Further recommendations to follow based upon clinical course. Thank you for the consult. We will follow the patient with you. at 1721 RPT #:[id number] OF REPORTTJFtehdlvtldiv2483-76-68I25:07:00G.PDOC2 [id number] for patient zsduSXORGDHJOWMAPG1154-39-18N12:21:38 [facility] 2022-08-18 17:04:00 [id number] Gd9KJWn6qSKPR0U3dIo96iAruWlnN sIwZ3tcXGWUmkHN47L5HkVe9cK98420-63-06C21:04:00 [facility] HospitalEndocrinology Progress NoteREPORT#:[id number] REPORT STATUS: SignedDATE:08/18/22 TIME: 1704 PATIENT: KARMA ROWLAND UNIT #: [id number]#: [id number] [address] AGE: 56 SEX: M ATTEND: Wilbert Ramires MDADM AUTHOR: Braxton Chapin MD * ALL edits or amendments must be made on the electronic/computer document * SubjectivePatient reports: no complaints Objective GeneralVS:Last Documented: Result Date Time Pulse Ox 96 08/18 1637 Pulse 109 08/18 1637 Resp 23 08/18 1637 B/P 116/58 08/18 1630 B/P Mean 80 08/18 1630 O2 Delivery Room air 08/18 1600 Temp 37.2 08/18 1600 PATIENT WEIGHT: Weight (lb): Weight (oz): Weight (kg): 77.700 Medications:Active Meds + DC'd Last 24 HrsVancomycin HCl (VANCOMYCIN HCL) 1,000 MG Q24H IV Sodium Chloride (SODIUM CHLORIDE 0.9%) 250 MLDextrose/Water (DEXTROSE 10% IN WATER) 250 ML ASDIR PRN IV (CKD) Insulin Human Regular (HumuLIN R) 100 UNIT ASDIR IV (CKD) Sodium Chloride (SODIUM CHLORIDE 0.9%) 99 MLDextrose/Sodium Chloride (Dextrose 5% / 0.45% NaCl) 1,000 ML .Q6H40M IV Clindamycin Phosphate (CLEOCIN [...] Vancomycin HCl (VANCOMYCIN HCL) 1,750 MG ONCE ONE IV (DC) Sodium Chloride (NS 0.9%) 500 MLHeparin Sodium (HEPARIN 5000 UNITS/ML) 5,000 UNIT Q8HR SUBQ Piperacillin Sod/Tazobactam Sod (ZOSYN 3.375GM) 3.375 GM Q8H IV Sodium Chloride (SODIUM CHLORIDE 0.9% 100 ML) 100 MLDextrose/Water (DEXTROSE 10% IN WATER) 250 ML ASDIR PRN IV (CKD) Dextrose/Water (Dextrose 10% 1,000 mL) 1,000 ML ASDIR IV (DC) Insulin Human Regular (HumuLIN R) 100 UNIT ASDIR IV (DC) Sodium Chloride (SODIUM CHLORIDE 0.9%) 99 MLMagnesium Sulfate (MAGNESIUM SULFATE 2GM/SWFI 50ML) 50 ML ASDIR PRN IV Magnesium Sulfate (MAGNESIUM SULFATE 4GM/SWFI 100ML) 100 ML ASDIR PRN IV Miscellaneous Information (VANCOMYCIN PHARMACY TO DOSE) 1 EACH ASDIR IV (CKD) Potassium Chloride (POTASSIUM CHLORIDE 20MEQ TAB.ER) 20 MEQ ASDIR PRN PO Potassium Chloride (POTASSIUM CHLORIDE 20MEQ TAB.ER) 40 MEQ ASDIR PRN PO Potassium Chloride (POTASSIUM CHLORIDE 20MEQ TAB.ER) 60 MEQ ASDIR PRN PO (CKD) Potassium Chloride (KCL 20MEQ/SWFI 100ML) 100 ML ASDIR PRN IV Potassium Phosphate (POTASSIUM PHOSPHATE) 15 MM ASDIR PRN IV Sodium Chloride (SODIUM CHLORIDE 0.9%) 250 MLSodium Chloride (SODIUM CHLORIDE 0.9%) 1,000 ML .Q5H IV (DC) Sodium Chloride (SODIUM CHLORIDE 0.9%) 1,000 ML .Q10H IV (DC) Insulin Human Regular (HumuLIN R) 100 UNIT X1ED STA IV (DC) Sodium Chloride (SODIUM CHLORIDE 0.9%) 99 MLIopamidol (ISOVUE-300 100ML) 100 ML .STK-MED ONE IV (DC) Sodium Chloride (SODIUM CHLORIDE 0.9%) 1,310 ML ONCE ONE IV (DC) Ondansetron HCl (ZOFRAN) 4 MG X1ED PRN PRN IV (DC) Ketorolac Tromethamine (TORADOL) 15 MG X1ED STA IV (DC) Sodium Chloride (SODIUM CHLORIDE 0.9%) 1,000 ML X1ED STA IV (DC) Physical ExamGeneral appearance: lethargic, alert, awake Considered stroke alert: no Diagnosis, Assessment PlanHospital course to date:Laboratory Tests: 08/18 08/18 08/18 08/18 08/18 1430 1430 1404 1309 1203Chemistry Sodium (134 - 147 mEq/L) 131 L [...] 20.0 L Cholesterol/HDL Ratio (3.43 - 4.97 4.00RATIO) TSH (0.42 - 5.47) 0.96 Free T4 (0.77 - 1.61 ng/dL) 0.7 L 08/18 08/18 08/18 08/18 08/18 1107 1004 0900 0823 0549 Chemistry POC Glucose (70 - 110 MG/DL) 223 H 304 H 405 H 449 H Hemoglobin A1c (4.8 - 6.0 %A1C) 13.4 H 08/18 08/18 08/18 0549 0305 0207Blood Gas Puncture Site R Radial O2 Saturation [...] O2 Delivery Device Room Air FiO2 (%) 21Chemistry Sodium (134 - 147 mEq/L) 121 *L [...] 2.34 Albumin (3.4 - 5.0 g/dL) 1.60 LSerology Influenza Type A (PCR) (Negative) Negative Influenza Type B (PCR) (Negative) NegativeToxicology Acetone, Quant (Neg - <20 mg/dL) Large [...] 206 Wound Culture - RECD FOOT 08/18 020 Group A Streptococcus Screen (VERONICA) - COMP THROAT 08/18 020 Streptococcus Culture - COMP THROAT 08/18 020 Blood Culture - RES BLOOD 08/18 020 Blood Culture Gram Stain - RES BLOOD 08/18 020 Blood Culture - RES BLOOD 08/18 0203 Blood Culture Gram Stain - RES BLOOD Recent Impressions:RADIOLOGY - XR CHEST 2 V 08/18 0201 Report Impression - Status: SIGNED Entered: 08/18/2022 0317 IMPRESSION: Ill-defined somewhat nodular opacity measuring 3.2 cm laterally in the right mid lung suspicious for rounded pneumonia given provided history, but underlying neoplasm can not be excluded. Followup radiographs are recommended after appropriate treatment in order to document complete resolution and exclude an underlying process or neoplasm. Impression By: [email or web address] - Dom Adams M.D.RADIOLOGY - XR FOOT 3 + V RT 08/18 0238 Report Impression - Status: SIGNED Entered: 08/18/2022 0358 IMPRESSION: No acute osseous findings. No convincing evidence for osteomyelitis. MRI is more sensitive for detecting osteomyelitis.Impression By: [email or web address] - Jay Ladd M.D.CAT SCAN - CT ABD PELVIS W/CONT 08/18 0335 Report Impression - Status: SIGNED Entered: 08/18/2022 0541 IMPRESSION: 3.3 cm hypodensity in the left posterior prostate or seminal vesicle. This could represent an abscess. Contrast-enhanced MRI of the pelvis would be helpful for further evaluation.No acute intra-abdominal findings otherwise.Impression By: Ankur Ladd M.D.CAT SCAN - CT LOWER EXTRM W/O C RT 08/18 0645 Report Impression - Status: SIGNED Entered: 08/18/2022826 IMPRESSION: Extensive soft tissue edema with mottled gas in the subcutaneous and intramuscular compartments of the foot compatible with gas-forming infection. Disease extends into the visualized distal leg. Impression By: Jamel Dorantes M.D. 1. 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 DKA3. Cellulitis and gangrene of the right foot.4. Sepsis5. Altered mental status6. High LFTsBlood sugar 139mk406 mg/dL.A gap 87YgP6y 13.4%White count 26.5Sodium 121.Adjust insulin drip settingsStart by mouth feedingsWound care and IV antibiotics. at 1707 RPT #:[id number] OF REPORTPRProgress jxah1110-69-66C52:04:00G.[id number] able for patient sgvsRQJECKXLEUFDBK6928-81-24N52:08:15 [facility] 2022-08-18 16:05:00 [id number] iHqNOxNBaHpXkX6JTPoarNSLMBgCn Q7FUWzhRnxazqQYDV9mUNMqDR/21001-46-77V63:05:00 [facility])Cardiology ConsultationREPORT#:[id number] REPORT STATUS: SignedDATE:08/18/22 TIME: 1605 PATIENT: KARMA ROWLAND UNIT #: [id number]#: [id number] [facility] AGE: 56 SEX: M ATTEND: Wilbert Ramires [facility] AUTHOR: Rohit Benitez RESEARCH MANUFACTURING OPERATOR * ALL edits or amendments must be made on the electronic/computer document * Rohit Benitez 08/18/22 1605:History of Present Illness HPIRequesting Clinician: for consult:Preop eval/cardiac clearanceChief complaint:foot infectionPCP:PCP: No Primary or Family Physician HPI:Mr. Rowland is a 56-year-old male with past medical history of hypertension, diabetes with neuropathy, and hyperlipidemia. Patient presented for evaluation of altered mental status, weakness and elevated blood sugar. Diagnosed with DKAand sepsis, work-up show gangrene of right foot. Denies chest pain, pressure orshortness of breath. Cardiology consulted for preop eval/cardiac clearance. History - Adult longitudinalAdditional medical history:DM 2 since age 33 DM neuropathy HTN hyperlipidemiaAdditional surgical history:as aboveAdditional family history:reviewed and non contributoryAlcohol use: Denies EtOH useDrug use: Denies recreational drugsSmoking status for patients 13 years old or older: Never SmokerOther social history: Local resident, Good social supportAllergies:Coded Allergies:No Known Allergies (03/23/11) Review of SystemsConstitutional:generalized weakness. Cardiovascular:Denies: chest pain, dyspnea on exertion, palpitations. Objective GeneralVS/I O:Vital Signs: Date Time Temp Pulse Resp B/P B/P Pulse O2 O2 Flow FiO2 Mean Ox Delivery Rate 08/18 1345 [...] 08/18 1115 109 19 114/56 80 96 08/18 1100 108 19 130/53 78 98 08/18 1046 110 20 156/65 93 100 08/18 1031 134 25 138/65 94 99 08/18 1016 109 28 141/67 96 93 08/18 1015 109 26 100 03/ 1000 108 27 127/64 89 100 03/ 0945 105 27 116/55 79 100 03/ 0930 135 26 120/57 82 99 03/27 0915 101 24 126/56 82 100 03/27 0900 98 16 112/59 77 100 03/27 0845 93 23 110/57 78 100 03/27 0830 95 21 112/59 81 100 03/ 0815 93 18 117/58 81 100 / 0800 99.5 117 21 113/69 83 98 Room air 08/18 0800 116 30 108/78 88 100 03/ 0745 86 27 104/69 77 99 03/ 0730 88 25 108/70 85 100 03/ 0718 83 14 101/56 73 100 03/ 0700 82 17 87/58 68 100 03/ 0530 85 16 107/58 75 98 03/ 0500 86 21 99/59 73 99 03/27 0430 89 20 94/55 70 99 03/ 0415 88 16 90/51 65 100 03/ 0400 91 28 110/56 80 97 03/27 0152 97.8 97 18 112/55 74 100 Room air 24 hour I O ending at 0700: 08/18 0700 08/17 1900 Intake Total Output Total Balance Patient 171 lb Weight Weight Stated/Reported Measurement Method PATIENT WEIGHT: Weight (lb): Weight (oz): Weight (kg): 77.700 Medications:Active Meds + DC'd Last 24 HrsVancomycin HCl (VANCOMYCIN HCL) 1,000 MG Q24H IV Sodium Chloride (SODIUM CHLORIDE 0.9%) 250 MLDextrose/Water (DEXTROSE 10% IN WATER) 250 ML ASDIR PRN IV (UNV) Insulin Human Regular (HumuLIN R) 100 UNIT ASDIR IV (CKD) Sodium Chloride (SODIUM CHLORIDE 0.9%) 99 MLDextrose/Sodium Chloride (Dextrose 5% / 0.45% NaCl) 1,000 ML .Q6H40M IV Clindamycin Phosphate (CLEOCIN [...] Vancomycin HCl (VANCOMYCIN HCL) 1,750 MG ONCE ONE IV (DC) Sodium Chloride (NS 0.9%) 500 MLHeparin Sodium (HEPARIN 5000 UNITS/ML) 5,000 UNIT Q8HR SUBQ Piperacillin Sod/Tazobactam Sod (ZOSYN 3.375GM) 3.375 GM Q8H IV Sodium Chloride (SODIUM CHLORIDE 0.9% 100 ML) 100 MLDextrose/Water (DEXTROSE 10% IN WATER) 250 ML ASDIR PRN IV (CKD) Dextrose/Water (Dextrose 10% 1,000 mL) 1,000 ML ASDIR IV (DC) Insulin Human Regular (HumuLIN R) 100 UNIT ASDIR IV (DCr) Sodium Chloride (SODIUM CHLORIDE 0.9%) 99 MLMagnesium Sulfate (MAGNESIUM SULFATE 2GM/SWFI 50ML) 50 ML ASDIR PRN IV Magnesium Sulfate (MAGNESIUM SULFATE 4GM/SWFI 100ML) 100 ML ASDIR PRN IV Miscellaneous Information (VANCOMYCIN PHARMACY TO DOSE) 1 EACH ASDIR IV (CKD) Potassium Chloride (POTASSIUM CHLORIDE 20MEQ TAB.ER) 20 MEQ ASDIR PRN PO Potassium Chloride (POTASSIUM CHLORIDE 20MEQ TAB.ER) 40 MEQ ASDIR PRN PO Potassium Chloride (POTASSIUM CHLORIDE 20MEQ TAB.ER) 60 MEQ ASDIR PRN PO (CKD) Potassium Chloride (KCL 20MEQ/SWFI 100ML) 100 ML ASDIR PRN IV Potassium Phosphate (POTASSIUM PHOSPHATE) 15 MM ASDIR PRN IV Sodium Chloride (SODIUM CHLORIDE 0.9%) 250 MLSodium Chloride (SODIUM CHLORIDE 0.9%) 1,000 ML .Q5H IV (DC) Sodium Chloride (SODIUM CHLORIDE 0.9%) 1,000 ML .Q10H IV (DC) Insulin Human Regular (HumuLIN R) 100 UNIT X1ED STA IV (DC) Sodium Chloride (SODIUM CHLORIDE 0.9%) 99 MLIopamidol (ISOVUE-300 100ML) 100 ML .STK-MED ONE IV (DC) Sodium Chloride (SODIUM CHLORIDE 0.9%) 1,310 ML ONCE ONE IV (DC) Ondansetron HCl (ZOFRAN) 4 MG X1ED PRN PRN IV (DC) Ketorolac Tromethamine (TORADOL) 15 MG X1ED STA IV (DC) Sodium Chloride (SODIUM CHLORIDE 0.9%) 1,000 ML X1ED STA IV (DC) Physical ExamGeneral appearance: confused, alert, awake, no acute distress, no respiratory distressNeck: no bruit/NL carotids, no JVDCardiovascular: CV assessment: abnormal S1/S2, regular rate and rhythm, no ectopyRespiratory: clear to auscultation, no distressLower extremity: LE assessment: edemaNeuro/DIRECTOR OPERATING ROOM: disoriented Considered stroke alert: noWound/incision: Location:right foot ResultsFindings/Data:Laboratory Tests 08/18 0305 Blood Gas Puncture Site [...] 08/18 08/18 08/18 1430 1430 1404 1309 1203Chemistry Sodium (134 - 147 mEq/L) 131 L [...] 20.0 L Cholesterol/HDL Ratio (3.43 - 4.97 4.00RATIO) TSH (0.42 - 5.47) 0.96 Free T4 [...] - 57 U/L) 24 Laboratory Tests 08/18 204 Hematology WBC (4.5 - 11.0 x10 3/uL) [...] (1.80 - 2.40 mg/dL) 2.09 2.34 Radiology Data:Recent Impressions:RADIOLOGY - XR CHEST 2 V 08/18 0201 Report Impression - Status: SIGNED Entered: 08/18/2022 0317 IMPRESSION: Ill-defined somewhat nodular opacity measuring 3.2 cm laterally in the right mid lung suspicious for rounded pneumonia given provided history, but underlying neoplasm can not be excluded. Followup radiographs are recommended after appropriate treatment in order to document complete resolution and exclude an underlying process or neoplasm. Impression By: [email or web address] Cr Adams M.D.RADIOLOGY - XR FOOT 3 + V RT 08/18 0238 Report Impression - Status: SIGNED Entered: 08/18/2022 0358 IMPRESSION: No acute osseous findings. No convincing evidence for osteomyelitis. MRI is more sensitive for detecting osteomyelitis.Impression By: Ankur Ladd M.D.CAT SCAN - CT ABD PELVIS W/CONT 08/18 0339 Report Impression - Status: SIGNED Entered: 08/18/2022 0546 IMPRESSION: 3.3 cm hypodensity in the left posterior prostate or seminal vesicle. This could represent an abscess. Contrast-enhanced MRI of the pelvis would be helpful for further evaluation.No acute intra-abdominal findings otherwise.Impression By: Ankur Ladd M.D.CAT SCAN - CT LOWER EXTRM W/O C RT 08/18 0645 Report Impression - Status: SIGNED Entered: 08/18/2022 0827 IMPRESSION: Extensive soft tissue edema with mottled gas in the subcutaneous and intramuscular compartments of the foot compatible with gas-forming infection. Disease extends into the visualized distal leg. Impression By: Jamel Dorantes M.D. Diagnosis, Assessment Plan Free Text DxA P NotesFree Text DxA P Notes:Impression: 1. Preop eval/cardiac clearance2. Infected right foot gas gangrene3. DKA4. Sepsis5. Hypertension 6. Anemia Recommendation: Patient presented for evaluation of altered mental status, weakness and elevatedblood sugar. Diagnosed with DKA and sepsis. 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 Known cardiac history of hypertension and hyperlipidemia. Denies prior history of CAD, CHF or arrhythmia. EKG abnormal, NSR with anterior infarct. Vital signs stable. No prior cardiac work-up. -Check echocardiogram-Monitor telemetry for arrhythmia-Monitor blood pressure trend-Wound care and IV antibiotic therapy-Supportive care Thank you for the kind referral. Plan of care discussed with family, RN and . Napoleon Parham 08/19/22 1032:Diagnosis, Assessment PlanAdditional Comments:Patient was seen and examined at bedside, agree with above assessment and plan as documented by nurse practitioner with modifications. Patient presented with possible gas gangrene. Echocardiogram shows preserved LVEF. Undergoing low to intermediate risk procedure. Okay to proceed. We will follow patient closely. Awaiting for lower extremity arterial Doppler for further evaluation. at 1033 at 1357 RPT #:[id number] OF REPORTMSGafhnbjrcsaa2820-72-62L37:05:00G.PDOC2 [id number] for patient jkxwLXCGLZHVVXWVJM1928-44-17O95:34:10 [facility] 2022-08-18 15:26:00 [id number]+ HCj9V2bruEw/CnWqp/mXSzTqGIGG7 [id number]-37H29:26:[address] [address] PATIENT NAME: KARMA ROWLAND ADMIT DATE: 08/18/22ACCOUNT NO: [id number] ROOM NO: [facility] [place] AGE: 56 REPORT TYPE: CONSULTATION REPORT SEX: M ADMITTING PHYSICIAN:Wilbert Ramires MD ATTENDING PHYSICIAN:Wilbert Ramires MD CONSULTATION DATE: 08/18/2022 ENDOCRINE CONSULTATION PATIENT OF: Wilbert Ramires MD Thank you very much for referring this patient. HISTORY OF PRESENT ILLNESS: This is a 56-year-old gentleman, who is referred to me for evaluation of uncontrolled diabetes mellitus, diabetic ketoacidosis. The patient reportedly is a known diabetic for last 10 years and takes oral hypoglycemics at home. He comes to the hospital with a history of cellulitis and swelling of the right foot. He had also altered mental status and at the time of admission, his blood sugars were significantly elevated at 692 and anion gap was around 21. The patient also has a history of hypertensionand hyperlipidemia. PHYSICAL EXAMINATION:GENERAL: Today, the patient is alert, awake. He looks slightly dehydrated.VITAL SIGNS: His heart rate is around 78, blood pressure is 110/70 mmHg.HEENT: Essentially unremarkable.NECK: Thyroid is palpable. Clinically, he is near euthyroid.CHEST: Diminished bilateral vesicular breathing. He has mild bronchospasm.CARDIOVASCULAR: Both first and second heart sounds. There is no third or fourth heart sounds. Ejection sound, grade II/.EXTREMITIES: The patient has evidence of diabetic sensorimotor neuropathy in both lower extremities and he has cellulitis and ulcers and blisters of the right foot. LABORATORY DATA: His sodium is 121, potassium is 4.1. Blood sugar is 692 and the anion gap was around 21. BUN and creatinine elevated at 62 and 1.7. His white count is elevated at 26.5 and hemoglobin 9.0 with hematocrit of 28.3. CLINICAL IMPRESSION: Diabetes mellitus type 2, uncontrolled with complications;diabetic ketoacidosis, sepsis, gas gangrene of the right foot with cellulitis, hyponatremia, history of hypertension and anemia. PLAN: The plan at this time is to continue the insulin drip, monitor his blood sugars closely, and start him on the p.o. feedings. Thanks again for referring this patient. I will be following this patient with you. PATIENT NAME: KARMA ROWLAND Dictated By: Braxton Chapin MD Date Dictated: 08/18/2022 15:26:32Date Transcribed: 08/18/2022 18:38:46KK/Pernell #: [id number] ID: [id number] by Logan Chapin MD On 09/03/2022 08:32:44 PM at 0833 PATIENT NAME: KARMA ROWLAND :38:00G.ME [id number] for patient umulULWBFXGHJDPBDI6709-01-11P63:33:30 [facility] 2022-08-18 11:20:00 [id number] +[id number]+DHZ5nlWbJrAKJ+Jl JudsbbkLski4IA+IqKwhPynOxe97638-13-72D74:20:00 [facility] Consult NoteREPORT#:[id number] REPORT STATUS: SignedDATE:08/18/22 TIME: 1120 PATIENT: KARMA ROWLAND UNIT #: [id number]#: [id number] [address] AGE: 56 SEX: M ATTEND: Wilbert Ramires MDADM AUTHOR: Forrest Oswald MD * ALL edits or amendments must be made on the electronic/computer document * History of Present IllnessChief complaint:right foot infectionHPI:Pt is a 56 yo m who was admitted for DKA and sepsis. Workup showed signs of gas ganrene of the right foot. I have been asked to see him for the possibility of extension into the lower leg. History - Adult longitudinalAdditional medical history:DM 2 since age 33 DM neuropathy HTN hyperlipidemiaAdditional surgical history:as aboveAdditional family history:reviewed and non contributoryAlcohol use: Denies EtOH useDrug use: Denies recreational drugsSmoking status for patients 13 years old or older: Never SmokerOther social history: Local resident, Good social supportMedications:Current Hospital Medications:Anti-Infective Agents Sig/Jan Start time Last Medication Dose [...] Sod/ 3.375 GM Q8H 08/18 0600 AC 08/18 Tazobactam Sod IV 08/25 0559 0616 (ZOSYN 3.375GM) Sodium Chloride 100 ML (SODIUM CHLORIDE 0.9% 100 ML) Miscellaneous 1 EACH ASDIR 08/18 0545 CKD Information IV 09/17 0544 (VANCOMYCIN PHARMACY TO DOSE) Blood Formation,Coagulation Sig/Jan Start time Last Medication Dose Route Stop Time Status Admin Heparin Sodium 5,000 UNIT Q8HR 08/18 0600 AC 08/18 (HEPARIN 5000 UNITS/ SUBQ 09/17 0559 0616 ML) Central Nervous System Agents Sig/Jan Start time Last Medication Dose Route Stop Time Status Admin Acetaminophen 650 MG Q6H PRN PRN 08/18 0945 AC (TYLENOL) PO 09/17 0944 Hydrocodone Bitart/ 1 TAB Q4H PRN PRN 08/18 0945 AC Acetaminophen PO 08/23 0944 (NORCO 5/325) Morphine Sulfate 2 MG Q4H PRN PRN 08/18 0945 AC (morphine SULFATE) IV 08/23 0944 Magnesium Sulfate 50 ML ASDIR PRN 08/18 0545 AC (MAGNESIUM SULFATE IV 09/17 0544 2GM/SWFI 50ML) Magnesium Sulfate 100 ML ASDIR PRN 08/18 0545 AC (MAGNESIUM SULFATE IV 09/17 0544 4GM/SWFI 100ML) Ketorolac 15 MG X1ED STA 08/18 0150 DC 08/18 Tromethamine IV 08/18 015 0227 (TORADOL) Diagnostic Agents Sig/Jan Start time Last Medication Dose Route Stop Time Status Admin Iopamidol 100 ML .STK-MED ONE 08/18 0341 DC 08/18 (ISOVUE-300 100ML) IV 08/18 034 0341 Electrolytic, [...] Chloride 1,000 ML .Q5H 08/18 0545 AC 08/18 (SODIUM CHLORIDE IV 09/17 0544 0925 0.9%) [...] Human Regular 100 UNIT X1ED STA 08/18 0412 DC 08/18 (HumuLIN R) IV 08/22 0811 0433 Sodium Chloride 99 ML (SODIUM CHLORIDE 0.9%) Skin And Mucous Membrane Agent Sig/Jan Start time Last Medication Dose Route Stop Time Status Admin Mupirocin 1 APPLIC BID 08/18 0900 AC 08/18 (BACTROBAN 2% 22 GM NASAL 08/22 210 0924 OINTMENT) Allergies:Coded Allergies:No Known Allergies (03/23/11) Review of SystemsConstitutional:malaise. Denies: chills, fatigue, fever, generalized weakness, lethargy, recentwt loss, other. Skin:Denies: abrasion, bruising, contusion, diaphoresis, ecchymosis, itching, laceration, rash, swelling, other. Allergy/Immun:Denies: allergic reaction, anaphylaxis, hives, itching, rhinorrhea, sneezing, other. Eyes:Denies: redness, discharge, visual loss/blurred, itching, diplopia, eye pain, photophobia, swelling, other. ENT:Denies: ear drainage, ear ringing, earache, hearing loss, mouth pain, nasal congestion, nose bleeding, sinus problem, sore throat, throat pain, throat swelling, tongue pain, tongue swelling, toothache, voice change, other. Respiratory:Denies: OVIEDO (dyspnea on exertion), hemoptysis, non productive cough, parox nocturnal dyspnea, pleurisy, pleuritic pain, pneumonia, productive cough (sputum), SOB, wheezing, other. Cardiovascular:Denies: chest pain, OVIEDO (dyspnea on exertion), edema, orthopnea, palpitations, parox nocturnal dyspnea, other. GI:Denies: abdominal pain, anorexia, constipation, diarrhea, dysphagia, GERD, hematemesis, hematochezia, hiatal hernia, melena, nausea, rectal pain, vomiting,other. :Denies: dysuria, flank pain, frequency, hematuria, nocturia, penile discharge, penile lesion, testicular pain, testicular swelling, urgency, urinary retention,other. Musculoskeletal:extremity pain (right foot). Heme:Denies: adenopathy, bleeding, bruising, petechiae, other. Endocrine:Denies: cold intolerance, heat intolerance, polydipsia, polyphagia, polyuria, weight gain, weight loss, other. Neuro:Denies: bladder dysfunction, bowel dysfunction, change in LOC, confusion, dizziness, focal weakness, gait problem, headache, lightheaded, numbness, seizure, slurred speech, spinning sensation, syncope, unable to speak, vision change, weakness, other. Psych:Denies: agitation, anxiety, auditory hallucination, change in mental status, confusion, delusional, depression, homicidal ideation, hostile, insomnia, stress, suicidal ideation, visual hallucination, other. Objective Physical ExamVS/I OLast Documented: Result Date Time Pulse Ox 100 [...] 77.700 General appearance: alert, awake, oriented, no acute distress, pleasant, conversational, mental status normal, no respiratory distressWound/incision: Location:right foot. Dressing in place. Nontender along the lower leg and calf.HEENT: atraumatic, normocephalicNeck: supple/no meningismusCardiovascular: regular rate and rhythmChest: normal appearanceRespiratory: aerating wellAbdomen: non-tender, soft, no distention, no guardingExtremities: moves all, right foot pain. dressing in place.Neuro/DIRECTOR OPERATING ROOM: alert, oriented x 3, CNII-XII intact, 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 Considered stroke alert: noSkin: normal color, normal temperature, normal turgorPsychiatry: normal affect, normal judgment/insight, normal mood ResultsFindings/Data:Laboratory Tests: 08/18 08/18 08/18 08/18 08/18 1107 1004 0900 0823 0549 Chemistry POC Glucose (70 - 110 MG/DL) 223 H 304 H 405 H 449 H Hemoglobin A1c (4.8 - 6.0 %A1C) 13.4 H 08/18 08/18 08/18 0549 0305 0207Blood Gas Puncture Site R Radial O2 Saturation [...] O2 Delivery Device Room Air FiO2 (%) 21Chemistry Sodium (134 - 147 mEq/L) 121 *L [...] 2.34 Albumin (3.4 - 5.0 g/dL) 1.60 LSerology Influenza Type A (PCR) (Negative) Negative Influenza Type B (PCR) (Negative) NegativeToxicology Acetone, Quant (Neg - <20 mg/dL) Large [...] 202 Blood Culture - RECD BLOOD Recent Impressions:RADIOLOGY - XR CHEST 2 V 08/18 0201 Report Impression - Status: SIGNED Entered: 08/18/2022 0317 IMPRESSION: Ill-defined somewhat nodular opacity measuring 3.2 cm laterally in the right mid lung suspicious for rounded pneumonia given provided history, but underlying neoplasm can not be excluded. Followup radiographs are recommended after appropriate treatment in order to document complete resolution and exclude an underlying process or neoplasm. Impression By: [email or web address] - Dom Adams M.D.RADIOLOGY - XR FOOT 3 + V RT 08/18 0238 Report Impression - Status: SIGNED Entered: 08/18/2022 0358 IMPRESSION: No acute osseous findings. No convincing evidence for osteomyelitis. MRI is more sensitive for detecting osteomyelitis.Impression By: Ankur Ladd M.D.CAT SCAN - CT ABD PELVIS W/CONT 08/18 0339 Report Impression - Status: SIGNED Entered: 08/18/2022 0569 IMPRESSION: 3.3 cm hypodensity in the left posterior prostate or seminal vesicle. This could represent an abscess. Contrast-enhanced MRI of the pelvis would be helpful for further evaluation.No acute intra-abdominal findings otherwise.Impression By: Ankur Ladd M.D.CAT SCAN - CT LOWER EXTRM W/O C RT 08/18 0645 Report Impression - Status: SIGNED Entered: 08/18/2022 0827 IMPRESSION: Extensive soft tissue edema with mottled gas in the subcutaneous and intramuscular compartments of the foot compatible with gas-forming infection. Disease extends into the visualized distal leg. Impression By: Jamel Dorantes M.D. Diagnosis, Assessment PlanProblem List/A P: 1. Right foot infection Plan discussed with: patient, collaborating MD Free Text DxA P NotesFree Text DxA P Notes:I have personally interviewed and examined the pt. All charts, labs and imaging studies were reviewed. No discoloration of the leg. No tenderness of the lower leg. Discussed with Dr. Pedersen. I have recommended that the foot be treated first. Will see how the infection is after drainage/treatment. If the infection worsenes, may need amputation (BKA vs AKA). Will follow. at 1126 RPT #:[id number] OF REPORTXJDjmsomxrclpy0193-58-67Q31:20:00G.PDOC2 [id number] for patient ezjoDCZXUADBIDIJON8947-36-27T81:27:12 [facility] 2022-08-18 10:23:00 [id number]/ NoMHBqBOx6PJKAQb3L4ypMzPVYytx OetFMI2vOZvGKUyIUR0wGlw9tIB4971-85-14K30:23:00 [facility] ([facility])Podiatry Consult NoteREPORT#:[id number] REPORT STATUS: SignedDATE:08/18/22 TIME: 1023 PATIENT: KARMA ROWLAND UNIT #: [id number]#: [id number] [facility] AGE: 56 SEX: M ATTEND: Wilbert Ramires AUTHOR: Liam Pedersen DPM * ALL edits or amendments must be made on the electronic/computer document * History of Present IllnessReason for consult:severe foot infection Chief complaint:my foot is red and swollen HPI:Thank you for the consultationI was asked to urgently come see patient who came in overnight last night.I came and saw him this morning in the intensive care unitHistory comes from patient from chart from nursing and from Dr. Ramires who I spoke with several times today.He is a 56 yo HAM with long h/o DM, and HTn who was admitted for above reasons. He was doing well until about 3 days ago when he noted blister to have formed onthe dorsum of his foot. His foot stated progressively getting more swollen and the blisters started enlarging and extending to his lateral foot and ankle. He started feeling weak and nauseated. He was noted to have altered mentation and was brought to our ER. He was noted to be in DKA with very high blood sugars.This is a very complicated situation.Patient is on an insulin drip.He is on IV antibiotics.I spent over 1 hour including examining him and reviewing the chart.He has had x-rays and CAT scan.CAT scan showed he had gas in the tissues.Patient does not understand really the severity.He does not know how long he has had areas of drainage around his ankle.He does not remember an ulcer being there.Does not really have much pain.He is quite numb.He denies any problems with his left foot.Only the right foot is evaluated up to the right ankle. History - Adult longitudinalAdditional medical history:DM 2 since age 33 DM neuropathy HTN hyperlipidemiaAdditional surgical history:as aboveAdditional family history:reviewed and non contributoryAlcohol use: Denies EtOH useDrug use: Denies recreational drugsSmoking status for patients 13 years old or older: Never SmokerOther social history: Local resident, Good social supportAllergies:Coded Allergies:No Known Allergies (03/23/11) Review of SystemsConstitutional:chills, fatigue, fever, generalized weakness, lethargy, malaise. Skin:abrasion, bruising, ecchymosis. Allergy/Immun:Denies: allergic reaction. Respiratory:Denies: OVIEDO (dyspnea on exertion). Cardiovascular:edema. Musculoskeletal:arthritis, extremity pain. Neuro:numbness. Denies: seizure, slurred speech. Psych:Denies: agitation, auditory hallucination, confusion. All systems rev neg: except as marked Objective GeneralVS:Last Documented: Result Date Time Pulse Ox 98 08/18 529 B/P 107/58 08/18 529 B/P Mean 75 08/18 529 Pulse 85 08/18 529 Resp 16 08/18 529 O2 Delivery Room air 08/19 151 Temp 36.6 08/19 151 PATIENT WEIGHT: Weight (lb): Weight (oz): Weight (kg): 77.700 Medications:Active Meds + DC'd Last 24 HrsVancomycin HCl (VANCOMYCIN HCL) 1,000 MG Q24H IV Sodium Chloride (SODIUM CHLORIDE 0.9%) 250 MLFamotidine (PEPCID) 20 MG Q12HR IV Clindamycin Phosphate [...] Vancomycin HCl (VANCOMYCIN HCL) 1,750 MG ONCE ONE IV (DC) Sodium Chloride (NS 0.9%) 500 MLHeparin Sodium (HEPARIN 5000 UNITS/ML) 5,000 UNIT Q8HR SUBQ Piperacillin Sod/Tazobactam Sod (ZOSYN 3.375GM) 3.375 GM Q8H IV Sodium Chloride (SODIUM CHLORIDE 0.9% 100 ML) 100 MLDextrose/Water (DEXTROSE 10% IN WATER) 250 ML ASDIR PRN IV (CKD) Dextrose/Water (Dextrose 10% 1,000 mL) 1,000 ML ASDIR IV Insulin Human Regular (HumuLIN R) 100 UNIT ASDIR IV (CKD) Sodium Chloride (SODIUM CHLORIDE 0.9%) 99 MLMagnesium Sulfate (MAGNESIUM SULFATE 2GM/SWFI 50ML) 50 ML ASDIR PRN IV Magnesium Sulfate (MAGNESIUM SULFATE 4GM/SWFI 100ML) 100 ML ASDIR PRN IV Miscellaneous Information (VANCOMYCIN PHARMACY TO DOSE) 1 EACH ASDIR IV (CKD) Potassium Chloride (POTASSIUM CHLORIDE 20MEQ TAB.ER) 20 MEQ ASDIR PRN PO Potassium Chloride (POTASSIUM CHLORIDE 20MEQ TAB.ER) 40 MEQ ASDIR PRN PO Potassium Chloride (POTASSIUM CHLORIDE 20MEQ TAB.ER) 60 MEQ ASDIR PRN PO (CKD) Potassium Chloride (KCL 20MEQ/SWFI 100ML) 100 ML ASDIR PRN IV Potassium Phosphate (POTASSIUM PHOSPHATE) 15 MM ASDIR PRN IV Sodium Chloride (SODIUM CHLORIDE 0.9%) 250 MLSodium Chloride (SODIUM CHLORIDE 0.9%) 1,000 ML .Q5H IV Sodium Chloride (SODIUM CHLORIDE 0.9%) 1,000 ML .Q10H IV (DC) Insulin Human Regular (HumuLIN R) 100 UNIT X1ED STA IV (DC) Sodium Chloride (SODIUM CHLORIDE 0.9%) 99 MLIopamidol (ISOVUE-300 100ML) 100 ML .STK-MED ONE IV (DC) Sodium Chloride (SODIUM CHLORIDE 0.9%) 1,310 ML ONCE ONE IV (DC) Ondansetron HCl (ZOFRAN) 4 MG X1ED PRN PRN IV (DC) Ketorolac Tromethamine (TORADOL) 15 MG X1ED STA IV (DC) Sodium Chloride (SODIUM CHLORIDE 0.9%) 1,000 ML X1ED STA IV (DC) I O:24 hour I O ending at 0700: 08/18 0700 08/17 1900 Intake Total Output Total Balance Patient 77.7 kg Weight Weight Stated/Reported Measurement Method Dietitian nutrition assessmentThe data set between the solid lines has been imported from the dietitian's assessment. BMI Calculated: 27.6Nutrition related diagnosis: Nutrition diagnosis details: Nutrition problem: Nutrition etiology: Nutrition signs and symptoms: Nutrition prescription: Dietitian name: Assessment completed: Physical ExamGeneral appearance: alert, awake, oriented, conversational, mental status normalWound/incision: Location:Right foot to right ankle. DP and PT pulses are very weak essentially nonpalpable.There is severe edema of the right foot to the right ankle.There is erythema of the right foot to the right ankle.Not really any ascending lymphangitis past there.Crepitation is at the medial right hindfoot and the dorsal right midfoot.There is also crepitation at the lateral right ankle.There is some bullae that are peeling medial and lateral.Sensation is greatly decreased on the right foot. LE vascular pulse assess:Nonpalpable R posterior tibialis, Nonpalpable R dorsalis pedisFeet Top - Top View (L)[Embedded Image Not Available] 1) Feet - Left Right View (L)[Embedded Image Not Available] 1) 2) ResultsFindings/Data:Laboratory Tests: 08/18 08/18 08/18 08/18 1004 0900 0823 0549 Chemistry POC Glucose (70 - 110 MG/DL) 304 H 405 H 449 H Hemoglobin A1c (4.8 - 6.0 %A1C) 13.4 H 08/18 08/18 08/18 0549 0305 0207Blood Gas Puncture Site R Radial O2 Saturation [...] O2 Delivery Device Room Air FiO2 (%) 21Chemistry Sodium (134 - 147 mEq/L) 121 *L [...] 2.34 Albumin (3.4 - 5.0 g/dL) 1.60 LSerology Influenza Type A (PCR) (Negative) Negative Influenza Type B (PCR) (Negative) NegativeToxicology Acetone, Quant (Neg - <20 mg/dL) Large [...] Salicylates (0.0 - 20.0 mg/dL) 5.6 Recent Impressions:RADIOLOGY - XR CHEST 2 V 08/18 0201 Report Impression - Status: SIGNED Entered: 08/18/2022 0317 IMPRESSION: Ill-defined somewhat nodular opacity measuring 3.2 cm laterally in the right mid lung suspicious for rounded pneumonia given provided history, but underlying neoplasm can not be excluded. Followup radiographs are recommended after appropriate treatment in order to document complete resolution and exclude an underlying process or neoplasm. Impression By: [email or web address] - Dom Adams M.D.RADIOLOGY - XR FOOT 3 + V RT 08/18 0238 Report Impression - Status: SIGNED Entered: 08/18/2022 0358 IMPRESSION: No acute osseous findings. No convincing evidence for osteomyelitis. MRI is more sensitive for detecting osteomyelitis.Impression By: [email or web address] - Jay Ladd M.D.CAT SCAN - CT ABD PELVIS W/CONT 08/18 0332 Report Impression - Status: SIGNED Entered: 08/18/2022 0546 IMPRESSION: 3.3 cm hypodensity in the left posterior prostate or seminal vesicle. This could represent an abscess. Contrast-enhanced MRI of the pelvis would be helpful for further evaluation.No acute intra-abdominal findings otherwise.Impression By: Ankur Ladd M.D.CAT SCAN - CT LOWER EXTRM W/O C RT 08/18 0645 Report Impression - Status: SIGNED Entered: 08/18/2022 0827 IMPRESSION: Extensive soft tissue edema with mottled gas in the subcutaneous and intramuscular compartments of the foot compatible with gas-forming infection. Disease extends into the visualized distal leg. Impression By: Jamel Dorantes M.D. 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 Given the consultation at 1030 [facility] #:[id number] OF REPORTJVVqogzkletprq6073-76-32W42:23:00G.PDOC2 [id number] for patient qckiWQDBNTVTEIRUJI7383-89-77B06:31:32 [facility] 2022-08-18 09:23:00 [id number] HLECs3ogxyk3ZhL1ZGvUyupZVrg+w 04eJ7G6J9FEZd3fXFHjO+9wFC7U1695-21-24R07:23:00 [facility] ([facility])Hospitalist History PhysicalREPORT#:[id number] REPORT STATUS: SignedDATE:08/18/22 TIME: 922 PATIENT: KARMA ROWLAND UNIT #: [id number]#: [id number] [facility] AGE: 56 SEX: M ATTEND: Wilbert Ramires MDADM AUTHOR: Wilbert Ramires MD * ALL edits or amendments must be made on the electronic/computer document * History of Present Illness HPIChief complaint:AMS and right foot infectionPCP:PCP: No Primary or Family Physician HPI:56 yo HAM with long h/o DM, and [...] in the 700's. History Past Medical Surgical HxAdditional medical history:DM 2 since age 33DM neuropathyHTNhyperlipidemiaAdditional surgical history:as above Family HistoryAdditional family history:reviewed and non contributory Social HistoryAlcohol use: Denies EtOH useDrug use: Denies recreational drugsSmoking status for patients 13 years old or older: Never SmokerOther social history: Local resident, Good social support Medication/Allergy-Vaccine HxMedications:please see MAR'sAllergies:Coded Allergies:No Known Allergies (03/23/11) Review of SystemsAll systems rev neg: except as noted OBJECTIVEVS/I O:Vital Signs Date Temp Pulse Resp B/P B/P Mean Pulse Ox FiO2 08/18 97.8 85-97 16-28 90-112/51-59 65-80 97-100 Last Documented: Result Date Time Pulse Ox [...] and BMI Weight (kg): 77.700 BMI: 27.6 Medications:Active Meds + DC'd Last 24 HrsVancomycin HCl (VANCOMYCIN HCL) 1,000 MG Q24H IV Sodium Chloride (SODIUM CHLORIDE 0.9%) 250 MLClindamycin Phosphate (CLEOCIN 900 MG/NS 50 ML) 50 ML Q8H IV (CAN) Mupirocin (BACTROBAN 2% 22 GM OINTMENT) 1 APPLIC BID NASAL Vancomycin HCl (VANCOMYCIN HCL) 1,750 MG ONCE ONE IV Sodium Chloride (NS 0.9%) 500 MLHeparin Sodium (HEPARIN 5000 UNITS/ML) 5,000 UNIT Q8HR SUBQ Piperacillin Sod/Tazobactam Sod (ZOSYN 3.375GM) 3.375 GM Q8H IV Sodium Chloride (SODIUM CHLORIDE 0.9% 100 ML) 100 MLDextrose/Water (DEXTROSE 10% IN WATER) 250 ML ASDIR PRN IV (CKD) Dextrose/Water (Dextrose 10% 1,000 mL) 1,000 ML ASDIR IV Insulin Human Regular (HumuLIN R) 100 UNIT ASDIR IV (CKD) Sodium Chloride (SODIUM CHLORIDE 0.9%) 99 MLMagnesium Sulfate (MAGNESIUM SULFATE 2GM/SWFI 50ML) 50 ML ASDIR PRN IV Magnesium Sulfate (MAGNESIUM SULFATE 4GM/SWFI 100ML) 100 ML ASDIR PRN IV Miscellaneous Information (VANCOMYCIN PHARMACY TO DOSE) 1 EACH ASDIR IV (CKD) Potassium Chloride (POTASSIUM CHLORIDE 20MEQ TAB.ER) 20 MEQ ASDIR PRN PO Potassium Chloride (POTASSIUM CHLORIDE 20MEQ TAB.ER) 40 MEQ ASDIR PRN PO Potassium Chloride (POTASSIUM CHLORIDE 20MEQ TAB.ER) 60 MEQ ASDIR PRN PO (CKD) Potassium Chloride (KCL 20MEQ/SWFI 100ML) 100 ML ASDIR PRN IV Potassium Phosphate (POTASSIUM PHOSPHATE) 15 MM ASDIR PRN IV Sodium Chloride (SODIUM CHLORIDE 0.9%) 250 MLSodium Chloride (SODIUM CHLORIDE 0.9%) 1,000 ML .Q5H IV Sodium Chloride (SODIUM CHLORIDE 0.9%) 1,000 ML .Q10H IV (DC) Insulin Human Regular (HumuLIN R) 100 UNIT X1ED STA IV (DC) Sodium Chloride (SODIUM CHLORIDE 0.9%) 99 MLIopamidol (ISOVUE-300 100ML) 100 ML .STK-MED ONE IV (DC) Sodium Chloride (SODIUM CHLORIDE 0.9%) 1,310 ML ONCE ONE IV (DC) Ondansetron HCl (ZOFRAN) 4 MG X1ED PRN PRN IV (DC) Ketorolac Tromethamine (TORADOL) 15 MG X1ED STA IV (DC) Sodium Chloride (SODIUM CHLORIDE 0.9%) 1,000 ML X1ED STA IV (DC) General appearance: alert, awake, orientedHead/Eyes: normocephalicENT: moist mucosal membranesNeck: no JVDCardiovascular: regular rate rhythm, no heaveRespiratory: aerating well, clear to auscultation, symmetric expansion, no distressAbdomen: non-tender, normal bowel sounds, soft, no distentionGenitourinary: no bladder distentionExtremities: right foot markedly swollen with violacous disoloratoin of dorsum and lateral area extending to ankle. There were blisters with some blisters wereopen. Neuro/DIRECTOR OPERATING ROOM: alert, oriented X 3, 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Skin: no rashPsychiatry: normal affect, normal judgment/insight, normal mood ResultsFindings/Data:Laboratory Tests: 08/18 08/18 08/18 08/18 0900 0823 0549 0549Chemistry Sodium (134 - 147 mEq/L) 121 *L [...] 2.34 Albumin (3.4 - 5.0 g/dL) 1.60 LToxicology Acetone, Quant (Neg - <20 mg/dL) Large [...] - 20.0 mg/dL) 5.6 Laboratory Tests 08/18/22 0549:[Embedded Image Not Available] 08/18/22 0205:[Embedded Image Not Available] 08/18/22202:[Embedded Image Not Available] Diagnosis, Assessment PlanFree Text A P:DKADM 2, poorly controlledsevere gas gangrene, right footAKIsevere hyponatremia likely due to combination of severe hyperglycemia and dehydration from DKAsepsis due to foot infectionDM neuropathyHTNanemia, acute due to blood loss Plans: - admit to ICU - continue IV fluids aggressively - monitor lytes and AG - IV insulin drip for now until gap closes - endo eval - keep on Vancomycin and Zosyn - podiatry eval - d.w Dr, Reyhani - likely will need debridement - MRI of foot ordered - endo eval for management of DM. - HgbA1c of 13.4 - Urology consulted for hypodensity in prostate - ? abscess, not likely. not much symptoms - lovenox for VTE - check iron panel, TSH - fall precautions - not much pain needs likely due to neuropathyPlan discussed with: patient, consultants, nurseTime spent: Time spent on patient care (minutes): 60 at 0932 RPT #:[id number] OF REPORTHPHistory and physical rgdrqjkawcw6466-92-80Q85:23:00G.[id number] AVAvailable for patient izcqFLMZPHWTQGMUYJ3142-28-92S20:34:48 [facility] 2022-08-18 06:03:00 [id number] bO70BNJoeGisyTaah45/sY4fGpnJ0 TFVLms9yln3OnMI6yXtgzdReRrj5930-85-67Q28:03:00 [facility])Pharmacy Prog.Note-VancomycinREPORT#:[id number] REPORT STATUS: SignedDATE:08/18/22 TIME: 06 PATIENT: KARMA ROWLAND UNIT #: [id number]#: [id number] [address] AGE: 56 SEX: M ATTEND: Wilbert Ramires [facility] AUTHOR: Beti Willoughby [facility] * ALL edits or amendments must be made on the electronic/computer document * Vancomycin Vancomycin Medication TherapyGoal: trough 12-18 mcg/mLIndication for treatment:EmpiricDay of therapy:Day 1Weight: Actual weight (kg): 77.7 (STATED/REPORTED)VS and I/O:Vital Signs Date Temp Pulse Resp B/P B/P Mean Pulse Ox FiO2 08/18 97.8 85-97 16-28 90-112/51-59 65-80 97-100 72 hours ending at 0700 08/18 0708/17 1900 08/17 0708/16 1900 08/16 08/15 07 1900IntakeTotalOutputTotalBalance Patient 77.7 kgWeightWeight Stated/Rep ortedMeasurementMethod 72 Hour I O Total 08/18 0700 08/17 0700 08/16 0700 Intake Total Output Total Balance Labs:Laboratory Test : 08/18 08/18 0205 0203 Chemistry BUN (7 - 18 mg/dL) 60 H Creatinine (0.6 - 1.3 mg/dL) 1.9 H Hematology WBC (4.5 - 11.0 x10 3/uL) 26.5 H Microbiology:08/18 206 FOOT: Wound Culture - RECD08/18 020 THROAT: Group A Streptococcus Screen (VERONICA) - COMP08/18 020 THROAT: Streptococcus Culture - COMP08/18 020 BLOOD: Blood Culture - RECD08/18 020 BLOOD: Blood Culture - RECD Pertinent tests:Recent Impressions:RADIOLOGY - XR CHEST 2 V 08/18 0201 Report Impression - Status: SIGNED Entered: 08/18/2022 0317 IMPRESSION: Ill-defined somewhat nodular opacity measuring 3.2 cm laterally in the right mid lung suspicious for rounded pneumonia given provided history, but underlying neoplasm can not be excluded. Followup radiographs are recommended after appropriate treatment in order to document complete resolution and exclude an underlying process or neoplasm. Impression By: [email or web address] - Dom Adams M.D.RADIOLOGY - XR FOOT 3 + V RT 08/18 0238 Report Impression - Status: SIGNED Entered: 08/18/2022 0358 IMPRESSION: No acute osseous findings. No convincing evidence for osteomyelitis. MRI is more sensitive for detecting osteomyelitis.Impression By: Ankur Ladd M.D.CAT SCAN - CT ABD PELVIS W/CONT 08/18 0339 Report Impression - Status: SIGNED Entered: 08/18/2022 0520 IMPRESSION: 3.3 cm hypodensity in the left posterior prostate or seminal vesicle. This could represent an abscess. Contrast-enhanced MRI of the pelvis would be helpful for further evaluation.No acute intra-abdominal findings otherwise.Impression By: Ankur Ladd M.D. Drug admin history:Medication(s) Ordered:Anti-Infective Agents Sig/Jan Start time Last Medication Dose Route Stop Time Status Admin Vancomycin HCl 1,750 MG ONCE ONE 08/18 0800 AC Sodium Chloride 500 ML IV 08/18 0944 Piperacillin Sod/ 3.375 GM Q8H 08/18 0600 AC 08/18 Tazobactam Sod IV 08/25 0559 0616 Sodium Chloride 100 ML Miscellaneous 1 EACH ASDIR 08/18 0545 CKD Information IV 09/17 0544 Treatment plan: consult, initiation of therapyRationale:56 year old male with unknown PMH, presented to ER with fever and AMS. He was found to have labs consistent with DKA. Nursing noted blister, redness, and purple discoloration on right foot. Pharmacy consulted to manage vancomycin. Consulting Provider: Andrew London MDIndication: EmpiricGoal trough: 12-18 mcg/mLOther abx: zosyn 3.375gm IV q8h 08/18 A/PLabs and Vitals* afebrile with temp 97.8F* WBC 26.5 (elevated)* lactic acid 1.2 (WNL)Renal Function* BUN/SCr 62/1.7, eCrCl 46 mL/min (AdjBW)* no documented urine output at this timeMicrobiology* 08/18 Blood cultures: pending* 08/18 strep A culture: negative* 08/18 foot wound culture: pendingImaging* 08/18 chest x-ray: Ill-defined somewhat nodular opacity measuring 3.2 cm laterally in the right mid lung suspicious for rounded pneumonia given provided history, but underlying neoplasm can not be excluded.* 08/18 foot x-ray: No acute osseous findings. No convincing evidence for osteomyelitis.* abd/pelvis CT: 3.3 cm hypodensity in the left posterior prostate or seminal vesicle. This could represent an abscess.Plan* loading dose of vancomycin 1750 mg ( 23 mg/kg) IV once* maintenance dose of vancomycin 1000 ( 13 mg/kg) IV q24h* if renal function stable, plan for steady state trough before the 4th dose* f/u cultures* pharmacy will continue to follow and adjust as appropriate Thank you, Andrew London MD, for this consult. at 0704 [facility] #:[id number] OF REPORTPRProgress hitu8694-09-74Z48:03:00G.[id number] able for patient whhzEHZHNRDWVHGNOP9291-22-84N58:04:26 [facility] 2022-08-18 05:37:00 [id number] oM40NuKOnNOMCpXeT0p6TeV0+LipU 6mf/4z6+/HRnbhYWSDJ7P1L885a6996-58-48K82:37:00 [facility] ([facility])Critical Care Consult NoteREPORT#:[id number] REPORT STATUS: SignedDATE:08/18/22 TIME: 05 PATIENT: KARMA ROWLAND UNIT #: [id number]#: [id number] [address] [birth year] AGE: 56 SEX: M ATTEND: Wilbert Ramires [facility] AUTHOR: Andrew London MD * ALL edits or amendments must be made on the electronic/computer document * History - Adult longitudinalAllergies:Coded Allergies:No Known Allergies (03/23/11) Diagnosis, Assessment PlanFree text DxA P:56 year old male unknown PMH who presented 08/18 with fever, AMS. He was found to have labs consisent with DKA with AGAP 21 and glucose 700+. 24 HR events: Physical exam:Awake, alert, lungs are clear to auscultation, heart is regular rate and rhythm,abdomen is soft, extremities no edema Neuro:no issues CV:no issues Pulm:no issues GI:no issues Renal:*elevated cr - likely secondary to dka, cont IVF, trend cr Heme:*anemia - trend HH, will need outpatient eval for etiology ID:*leukocytosis - start empiric abx, check cultures Endo:*DKA - start protocol, check a1c, acetone MSK Nutr:NPO GI px: DVT px:hep sq Bowel regimen: Dispo:ICU I have seen and examined the patient and spent 39 minutes evaluating and managing the patient exclusive of time spent on procedures. at 0703 RPT #:[id number] OF REPORTXCGqffrfvvqgmw9972-68-77O95:37:00G.PDOC2 [id number] for patient qesmPNYQHOPTOGNSAO7954-11-46T77:04:03 [facility] 2022-08-18 05:14:00 [id number] GG0KVHKqgbTRkAJnEMh/G9tPYPtD8 dJHztH10ZcjpqFJm7tac6iwVdcV6453-75-37E52:14:00 [facility] ([facility])EMERGENCY PROVIDER REPORTREPORT#:[id number] REPORT STATUS: SignedDATE:08/18/22 TIME: 513 PATIENT: KARMA ROWLAND UNIT #: [id number]#: [id number] [address] SEX: M PCP PHYS: No Primary or Family PhysicianSERVICE AUTHOR: Teodoro Perez MD * ALL edits or amendments must be made on the electronic/computer document * HPI-General Illness Free Text HPI NotesFree Text HPI Notes56 yo male with history of non-insulin dependent diabetes comes to the emergencydepartment with increasing confusion. Patient presents with family. He has generally declined over the last 3-4 days, though he says that he has felt bad for about 2 weeks. Now having fevers, dizziness and some discomfort in the chest. He has not been compliant with medications for his diabetes. Also notes an open blister wound on the right foot. GeneralInitial Greet Date/Time 08/18/22 0247 PresentationChief Complaint Altered mental status Review of Systems ROS StatementsAll systems rev neg except as marked. Review of SystemsConstitutionalReports: Chills, Weakness - generalized. CardiovascularReports: Chest pain. SkinReports: Rash. NeurologicReports: Dizziness. Past Medical History - AdultStated Complaint DIZZY, ABD PAIN, CHEST PAIN, FEVERAllergiesCoded Allergies:No Known Allergies (03/23/11) Review of Nursing Notes Rev avail, and agreeSmoking status for patients 13 years old or older: Never Smoker Physical Exam Vital SignsVital SignsFirst Documented: Result Date Time Pulse Ox 100 08/18 0152 B/P 112/55 08/18 0152 B/P Mean 74 08/18 015 O2 Delivery Room air 08/19 151 Temp 36.6 08/19 151 Pulse 97 08/19 151 Resp 18 08/19 151 Last Documented: Result Date Time Pulse Ox 99 08/18 0500 B/P 99/59 08/18 0500 B/P Mean 73 08/18 0500 Pulse 86 08/18 0500 Resp 21 08/18 0500 O2 Delivery Room air 08/19 151 Temp 36.6 08/19 151 Review of Vital Signs Reviewed, Vital signs normal Physical ExamGeneral/Const General/Const Awake, Alert, No acute distress, Well appearing, Cooperative, Not toxic appearingMS Head Head Atraumatic, NormocephalicEyes Eyes No scleral icterus, Conjunctiva NLEars/Nose/Throat Ears/Nose/Throat Airway patent, Pharynx NL Mouth Mucous membranes dry. MS Neck Neck Supple, No meningismus, No swellingResp/Chest Respiratory/Chest Breath sounds NL, Breath sounds = bilat, No respiratory distress, No rhonchi, No wheezing Text/Dict NotesTachypnic Cardiovascular Cardiovascular Regular rhythm, Heart sounds NL, No murmurs, Peripheral circulation NL Heart Rate/Rhythm Tachycardia. Abdomen/GI Abdomen/GI Soft, Non-tender, No guarding, No rebound, No distentionMS Lower Extrem Text/Dict NotesNo lower extremity swelling. Open blister on the lateral aspect of the right foot. No streaking redness up the legSkin Skin Warm, Dry, No swelling Text/Dict NotesOpen blister wound on the right footNeurologic Neurologic Oriented X3, Speech NL, No motor deficits, No sensory deficits Interpretation Diagnostics Lab Results InterpretationResultsLaboratory Tests 08/18/22 0205:[Embedded Image Not Available] 08/18/22 0203:[Embedded Image Not Available]Laboratory Tests: 08/18 08/18 08/18 08/18 08/18 0430 0305 0207 0205 0203Blood Gas Puncture Site R Radial O2 Saturation (90 - 100 %) 97.9 ABG pH (7.35 - 7.45) 7.309 L ABG pCO2 (35.0 - 45 mmHg) 22.3 *L ABG pO2 (80 - 100.0 mmHg) 108.0 H ABG PO2/FiO2 Ratio (mm/Hg) 514.28 ABG HCO3 (22.0 - 26.0 MMOL/L) 11.2 *L ABG Total CO2 11.9 ABG Base Excess (-4.0 - 4.0 -15.1 LMMOL/L) Neto Test Positive O2 Delivery Device Room Air FiO2 (%) 21Chemistry POC Glucose (70 - 110 MG/DL) 597 H Lactic Acid (0.4 - 1.9 mmol/L) 1.2Hematology WBC (4.5 - 11.0 x10 3/uL) 26.5 [...] 0 %) 0.9 H Platelet Estimate (ADEQUATE AdequateTHOUSAND) Plt Morphology Comment NORMAL Polychromasia 3+ Poikilocytosis 3+ Anisocytosis 1+ Macrocytosis 1+Serology Influenza Type A (PCR) (Negative) Negative Influenza Type B (PCR) (Negative) Negative SARS-CoV-2 Ag (Rapid) (Negative) Negative 08/18 0203 Chemistry Sodium (134 - 147 mEq/L) [...] Culture Gram Stain - COMP BLOOD Recent Impressions:RADIOLOGY - XR CHEST 2 V 08/18 0201 Report Impression - Status: SIGNED Entered: 08/18/2022 0317 IMPRESSION: Ill-defined somewhat nodular opacity measuring 3.2 cm laterally in the right mid lung suspicious for rounded pneumonia given provided history, but underlying neoplasm can not be excluded. Followup radiographs are recommended after appropriate treatment in order to document complete resolution and exclude an underlying process or neoplasm. Impression By: Mark - Dom Adams M.D.RADIOLOGY - XR FOOT 3 + V RT 08/18 0238 Report Impression - Status: SIGNED Entered: 08/18/2022 0358 IMPRESSION: No acute osseous findings. No convincing evidence for osteomyelitis. MRI is more sensitive for detecting osteomyelitis.Impression By: Ankur Ladd M.D.CAT SCAN - CT ABD PELVIS W/CONT 08/18 0339 Report Impression - Status: SIGNED Entered: 08/18/2022 0546 IMPRESSION: 3.3 cm hypodensity in the left posterior prostate or seminal vesicle. This could represent an abscess. Contrast-enhanced MRI of the pelvis would be helpful for further evaluation.No acute intra-abdominal findings otherwise.Impression By: Ankur Ladd M.D. Lab Imaging StatementLaboratory radiographic studies reviewed and considered in the medical decision-making. ECG #1 InterpretationText/Dict NoteNormal sinus rhythm with a rate of 97 bpm. Normal axis and normal intervals. No ST segment elevations or depressions. Has elevated T waves in the lateral leads and T wave inversion noted in lead III.ECG Documented in MUSE YesDate 08/18/22Time 0143Interpreted by and reviewed by me, Independently interpreted, ED physician Re-Evaluation MDM Free Text MDM NotesFree Text MDM Notes56 yo male with history of DM, comes to the emergency department with family - confused with tachycardia and fever. Concerned patient may have DKA based on presentation and history of medication non-compliance. Will give fluids, and antibiotics for wound. Labs ordered. Re-Evaluation/Progress #1Text/Dict NotePatient's labs confirm diagnosis of DKA, with markedly elevated WBC. CT of the abdomen ordered. Will start and insulin drip and admit patient to the ICU for continued management. ED CourseMedication(s) OrderedMedication(s) Ordered:Central Nervous System Agents Sig/Jan Start time Last Medication Dose Route Stop Time Status Admin Ketorolac 15 MG X1ED STA 08/18 0150 DC 08/18 Tromethamine IV 08/18 015 0227 Diagnostic Agents Sig/Jan Start time Last Medication Dose Route Stop Time Status Admin Iopamidol 100 ML .STK-MED ONE 08/18 0341 DC 08/18 IV 08/18 034 0341 Electrolytic, Caloric, And [...] Human Regular 100 UNIT X1ED STA 08/18 0412 CKD 08/18 Sodium Chloride 99 ML IV 08/22 0811 0433 Patient Discharge Departure Vital Signs/ConditionVital SignsFirst Documented: Result Date Time Pulse Ox 100 [...] signs available at the time of this entry have been reviewed. Clinical ImpressionClinical ImpressionPrimary Impression: DKA (diabetic ketoacidosis)Secondary Impressions: ERIKA (acute kidney injury), Cellulitis of foot, right, Hyperglycemia Disposition DecisionAdmit Admit Physician Name Wilbert Ramires MD )( Admission Accepts Yes )( Accepted Time 512 )( Accepted Date 08/18/22 Discharge/Care Plan Admit NoteI have spoken with the patient and/or caregivers. I have explained the patient'scondition, diagnoses and treatment plan based on the information available to meat this time. I have answered the patient's and/or caregiver's questions and addressed any concerns. The patient and/or caregivers have as good an understanding of the patient's diagnosis, condition and treatment plan as can beexpected at this point. The patient has been stabilized within the capability ofthe emergency department. The patient will be transported for further care and management or will be moved to an observation or inpatient service. I have communicated with the staff or medical practitioner taking over this patient's care. Critical CareTime Spent (minutes): 37Services Performed Patient management by me, Time spent at bedside, Reviewing test results, Reviewing imaging, Discussing patient care, Documentation in record, Time with fam/surrogateSeparately billable procedures excluded from time.Patient was critically ill due to:DKAMy treatment and management were:Fluids, antibiotics, Initiation of insulin drip and IV sodium bicarb. at 2233RPT #:[id number] OF [facility]TTex[facility] department [id number] ilable for patient [id number] HCACL
--- NOTE | 2023-09-20 12:58 | EDPHYS ---
Physician Documentation [facility] Name: Delroy Quintero Age: 57 yrs Sex: Male : 1965 Arrival Date: 09/20/2023 Time: 12:28 Bed 19 Private MD: ED Physician Megan Carrera HPI: 09/19 14:07 This 57 yrs old Male presents to ER via Wheelchair with complaints of Leg Pain.sb4 14:07 patient has history of right BKA. states he has a wound at the stump that is draining sb4 and causing him pain. states he had this issue about 6 months ago, was treated with antibiotics, and the issue resolved. has been trying to take care of it at home with topical remedies and english antibiotics without success. denies any known fevers. Historical: - Allergies: 12:54 No Known Allergies; nj1 - PMHx: 12:54 ERIKA; Anemia; diabetes mellitus; Hypertensive disorder; nj1 - PSHx: 12:54 R BKA; nj1 - Immunization history:: Client reports having NOT received the Covid vaccine. - Infectious Disease History:: Denies. - Social history:: Smoking status: Patient denies any tobacco usage or history of. ROS: 14:07 Constitutional: Negative for fever, chills, and weight loss, sb4 14:07 MS/extremity: Positive for pain, 14:07 Skin: Positive for erythema, wound with purulent drainage, 14:07 All other systems are negative, Exam: 14:07 Constitutional: This is a well developed, well nourished patient who is awake, alert, sb4 and in no acute distress. Head/Face: Normocephalic, atraumatic. Eyes: Extra-ocular motions intact. Periorbital areas with no swelling, redness, or edema. ENT: Mucous membranes moist. MS/ Extremity: Pulses equal, no cyanosis. Neurovascular intact. Full, normal range of motion. 14:07 Skin: wound dehiscence distal right BKA with purulent discharge. no surrounding cellulitis. Vital Signs: 12:43 BP 177 / 85; Pulse 80; Resp 17; Temp 97.8(O); Pulse Ox 99% on R/A; Weight 77.11 kg; nj1 Height 5 ft. 6 in. ; Pain 8/10; 12:45 BP 172 / 86; Pulse 80; Resp 18; Pulse Ox 100% on R/A; db 12:43 Body Mass Index 27.44 (77.11 kg, 167.64 cm) nj1 12:43 Pain Scale: Adult nj1 MDM: 12:46 Patient medically screened. sb4 14:07 Data reviewed: vital signs, nurses notes, and as a result, I will discharge patient. sb4 Counseling: I had a detailed discussion with the patient and/or guardian regarding the historical points, exam findings, and any diagnostic results supporting the discharge/admit diagnosis, the need for outpatient follow up, a general surgeon, to return to the emergency department if symptoms worsen or persist or if there are any questions or concerns that arise at home. 09/19 12:58 Order name: Wound Culture sb4 Administered Medications: No medications were administered Disposition Summary: 09/20/23 12:58 Discharge Ordered Notes: Location: Home sb4 Problem: new sb4 Symptoms: are unchanged sb4 Condition: Stable sb4 Diagnosis - cellulitis/wound dehiscence of right BKA stump sb4 Followup: sb4 - With: Beau Hazel MD - When: 1 week - Reason: Wound Recheck Discharge Instructions: - Discharge Summary Sheet sb4 - Cellulitis, Adult, [id number]-tb-[id number] sb4 - Wound Dehiscence, Dlwv-ev-[id number] sb4 Forms: - Prescription Opioid Use sb4 - Patient Portal Instructions sb4 - Leadership Thank You Letter sb4 Prescriptions: - Clindamycin HCl 300 mg Oral Capsule - take 1 capsule ORAL route every 6 hours for 10 days; 40 capsule; Refills: 0, sb4 Product Selection Permitted Signatures: Dispatcher [employer] Mercedes Pérez, RN RN Vianca Holman PAGarrikc PA-C sb4 Tess Pettit, RN RN nj1
--- NOTE | 2023-09-20 12:58 | ER ---
Nurse's Notes [facility] Name: Delroy Quintero Age: 57 yrs Sex: Male : 1965 Arrival Date: 09/20/2023 Time: 12:28 Bed 19 Private MD: Diagnosis: cellulitis/wound dehiscence of right BKA stump Presentation: 09/19 12:43 Chief complaint: Patient states: Wound to right stump, first noticed 2 months ago, took nj1 some abx but did not make it better. 12:43 Coronavirus screen: Vaccine status: Patient reports being unvaccinated. Ebola Screen: nj Patient denies travel to an Ebola-affected area in the 21 days before illness onset. Initial Sepsis Screen: Does the patient meet any 2 criteria? No. Patient's initial sepsis screen is negative. Does the patient have a suspected source of infection? No. Patient's initial sepsis screen is negative. Risk Assessment: Do you want to hurt yourself or someone else? Patient reports no desire to harm self or others. Onset of symptoms was June 2023. 12:43 Method Of Arrival: Wheelchair nj 12:43 Acuity: GUS 3 nj1 Triage Assessment: 13:10 General: Appears in no apparent distress. comfortable, Behavior is calm, cooperative. db Historical: - Allergies: 12:54 No Known Allergies; nj1 - PMHx: 12:54 ERIKA; Anemia; diabetes mellitus; Hypertensive disorder; nj1 - PSHx: 12:54 R BKA; nj1 - Immunization history:: Client reports having NOT received the Covid vaccine. - Infectious Disease History:: Denies. - Social history:: Smoking status: Patient denies any tobacco usage or history of. Screenin:10 [facility] ED Fall Risk Assessment (Adult) History of falling in the last 3 months, db including since admission No falls in past 3 months (0 pts) Confusion or Disorientation No (0 pts) Intoxicated or Sedated No (0 pts) Impaired Gait Yes (1 pt) Mobility Assist Device Used Yes (1 pt) Altered Elimination No (0 pt) Score/Fall Risk Level 0 - 2 = Low Risk Oriented to surroundings, Maintained a safe environment. Abuse screen: Denies threats or abuse. Denies injuries from another. Nutritional screening: No deficits noted. Tuberculosis screening: No symptoms or risk factors identified. Assessment: 13:10 Reassessment: Patient appears in no apparent distress at this time. Patient and/or db family updated on plan of care and expected duration. Pain level reassessed. Patient is alert, oriented x 3, equal unlabored respirations, skin warm/dry/pink. WOUND TO RIGHT STUMP BKA. General: Appears in no apparent distress. comfortable, Behavior is calm, cooperative. Pain: Denies pain. Neuro: Level of Consciousness is awake, alert, obeys commands, Oriented to person, place, time, situation. Respiratory: Airway is patent Respiratory effort is even, unlabored, Respiratory pattern is regular, symmetrical. GI: No deficits noted. No signs and/or symptoms were reported involving the gastrointestinal system. Derm: Wound noted right leg. Vital Signs: 12:43 BP 177 / 85; Pulse 80; Resp 17; Temp 97.8(O); Pulse Ox 99% on R/A; Weight 77.11 kg; nj1 Height 5 ft. 6 in. ; Pain 8/10; 12:45 BP 172 / 86; Pulse 80; Resp 18; Pulse Ox 100% on R/A; db 12:43 Body Mass Index 27.44 (77.11 kg, 167.64 cm) nj1 12:43 Pain Scale: Adult nj1 ED Course: 12:35 Patient arrived in ED. mg5 12:45 Vianca Johnston PA-C is PHCP. sb4 12:45 Megan Carrera MD is Attending Physician. sb4 12:54 Triage completed. nj1 12:55 Arm band placed on. nj1 12:57 Beau Hazel MD is Referral Physician. sb4 13:08 Mercedes Castro, SELENA is Primary Nurse. db 13:10 Patient has correct armband on for positive identification. Bed in low position. Call db light in reach. Side rails up X 1. Provided Education on: WOUND FOLLOWUP. Pulse ox on. NIBP on. 13:10 Wound culture swab sent to lab. db 13:10 No provider procedures requiring assistance completed. Patient did not have IV access db during this emergency room visit. Administered Medications: No medications were administered Medication: 13:10 VIS not applicable for this client. db Outcome: 12:58 Discharge ordered by . sb4 13:10 Discharged to home via wheelchair, with family, db 13:10 Condition: stable 13:10 Discharge instructions given to patient, family, Instructed on discharge instructions, follow up and referral plans. Prescriptions given X 1, 13:12 Patient left the ED. db Signatures: Mercedes Castro RN RN Vianca Holman PA-C PA-C sb4 Tess Pettit RN RN nj1 Tiff Lentz mg5
[2023-09-20 13:39] VITALS: BP 172/86; TEMP 97.8; O2SAT 100
== END 2023-09-20 13:12 | disposition home or self-care (01) ==
LOC: ER 12:28
DX: L03.116 Cellulitis of left lower limb (principal); T87.81 Dehiscence of amputation stump; Z89.511 Acquired absence of right leg below knee
CPT/HCPCS: 87070; 87077; 87186; 87205; 99283

== ENCOUNTER 2023-10-03 10:54 | Emergency (ER) | payer OTHER ==
--- OUTSIDE RECORDS SUMMARY | 2023-10-03 11:05 | XMS REPORT | Continuity of Care Document ---
Author Name Unknown Address [address] [facility] [address] [place] [address] [facility]connect Address [address] [facility] [address] [place] [address] Care Team Providers Care Ob/Gyn Nurse Name Role Phone CHARLES HACKETT Attending Clinician Unavailable LAKESHIA ERNST Attending Clinician Unavailable KENY BAJWA Attending Clinician Unavail able LAB90 Attending Clinician Unavailable LUCRECIA ONTIVEROS Attending Clinician UnaCEZAR Crabtree Attending Clinician Unavailable LYNDSEY NOVAK Attending Clinician Unavailable LIANA STEPHENS Attending Clinician Unavailable NUBIA FREEMAN Attending Clinician UnavailEVELIO Zamarripa Attending Clinician Unavailable JONATHAN ACEVEDO Attending Clinician Unavailable MARLENE BRAN Attending Clinician Unavailable Mj Vences Attending Clinician Unavail able Wilbert Ramires Attending Clinician Unavailable Mj Vences Admitting Clinician Unavail able Wilbert Ramires Admitting Clinician Unavailable Payers Payer Name Policy Type Policy Number Effective Date Expirati on Date Source ANA MARÍA VERA [employer] 94 [place] 9 [id number] 2023 00:00:00 Problems Condition Name Condition Details Condition Category Status Onset Date Resolution Date Last Treatment Date Treating Clinician Comments Source Type 2 diabetes mellitus with diabetic peripheral angiopathy and gangrene, with long-term current use of insulin (multi HCC) Type 2 diabetes mellitus with diabetic peripheral angiopathy and gangrene, with long-term current use of insulin (multi HCC) Disease Active 09-28 00:00: 00 Nikia Liang - Externa gloria CKD (chronic kidney disease) stage 4, GFR 15-29 ml/min (multi HCC) CKD (chronic kidney disease) stage 4, GFR 15-29 ml/min (multi HCC) Disease Active 09-28 00:00: 00 Nikia Liang - Externa l Immunodefi ciency due to DM (multi HCC) Immunodefi ciency due to DM (multi HCC) Disease Active 2022-05 00:00: 00 Nikia Liang - Externa l Well adult exam Well adult exam Disease Active 2022-05 00:00: 00 Nikia Liang - Externa l History of right below knee amputation (multi HCC) History of right below knee amputation (multi HCC) Disease Active 2022-05 00:00: 00 Nikia Liang - Externa l DM (diabetes mellitus) (multi HCC) DM (diabetes mellitus) (multi HCC) Disease Active 2022-05 00:00: 00 Nikia Liang - Externa l Type 2 diabetes mellitus with hyperglyce bessy, with long-term current use of insulin (multi HCC) Type 2 diabetes mellitus with hyperglyce bessy, with long-term current use of insulin (multi HCC) Disease Active 2022-05 00:00: 00 Nikia Liang - Externa l 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 (multi HCC) 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 (multi HCC) Disease Active 2022-05 00:00: 00 Nikia Liang - Externa l HTN (hypertens ion) HTN (hypertens ion) Disease Active 02-17 00:00: 00 Nikia Liang - Externa l Diabetes (multi HCC) Diabetes (multi HCC) Disease Active 02-17 00:00: 00 Nikia Liang - Externa l Anemia of chronic disease Anemia of chronic disease Disease Active 02-17 00:00: 00 Nikia Liang - Externa l Subclinica l hypothyroi dism Subclinica l hypothyroi dism Disease Active 02-17 00:00: 00 Nikia castro Elevated liver function tests Elevated liver function tests Disease Active 02-17 00:00: 00 Nikia castro Unspecifie d diastolic (congestiv e) heart failure (multi HCC) Unspecifie d diastolic (congestiv e) heart failure (multi HCC) Disease Active 10-15 00:00: 00 Nikia castro Allergies, Adverse Reactions, Alerts Allergy Name Allergy Type Status Severity Reaction(s) Onset Date Inactive Date Treating Clinician Comments Source No Known Allergie s DA Active U 2010-05 00:00: 00 [facility] Social History Social Habit Start Date Stop Date Quantity Comments Source Gender identity Genesis Liang - External Sexual orientation Adonis Liang - External History of tobacco use Cigarette Smoker Nikia rivera - External Alcoholic beverage intake 2023-09-29 00:00:00 2023-09-29 00:00:00 Ex-drinker (finding) Nikia Liang - External Alcohol intake 2023-03-20 00:00:00 2023-03-20 00:00:00 Ex-drinker (finding) Nikia Liang - External History of Social function 2023-02-09 00:00:00 2023-02-09 00:00:00 Nikia Liang - External Tobacco use and exposure 2022-10-16 00:00:00 2022-10-16 00:00:00 Smokeless tobacco non-user Nikia Liang - External Sex [birth year] at 1965 00:00:00 1965 00:00:00 Nikia Liang - External Smoking Status Start Date Stop Date Source Ex-smoker 2022-10-16 00:00:00 2022-10-16 00:00:00 Adonis Liang - External Medications Ordered Medication Name Filled Medication Name Start Date Stop Date Current Medication? Ordering Clinician Indication Dosage Frequency Signature (SIG) Comments Components Source Amitriptyli ne HCl 25 MG oral Tablet 2022-05 00:00: 00 Yes [id number] 25mg Take 1 tablet (25 mg total) by mouth at bedtime. Nikia castro hydrALAZINE HCl 100 MG oral Tablet 2022-05 00:00: 00 Yes [id number] 100mg Take 1 tablet (100 mg total) by mouth 3 times daily. Nikia castro Clonidine HCl (CATAPRES) 0.1 MG oral Tablet 2022-05 00:00: 00 Yes [id number] .1mg Take 1 tablet (0.1 mg total) by mouth 2 times daily. Nikia castro Insulin Glargine (Lantus SoloStar) 100 UNIT/ML subcutaneou s Solution Pen-injecto r 2022-05 00:00: 00 Yes [id number] 15U Inject 15 units into the skin at bedtime. Nikia castro Potassium Chloride CR 10 MEQ oral Cap CR 2022-05 00:00: 00 03-20 00:00 :00 No Nikia castro Insulin Aspart (NovoLOG FlexPen) 100 UNIT/ML subcutaneou s Solution Pen-injecto r 2022-05 00:00: 00 Yes [id number] 10 units sc three times a day with every meal. Hold If blood sugar is less than 100. Nikia castro Gabapentin 100 MG oral Capsule 02-18 00:00: 00 Yes [id number] 100mg Take 1 capsule (100 mg total) by mouth 3 times daily. Nikia castro Furosemide (LASIX) 20 MG oral Tablet 02-18 00:00: 00 Yes 20mg Take 1 tablet (20 mg total) by mouth 2 times daily. Nikia castro Labetalol HCl 200 MG oral Tablet 02-18 00:00: 00 Yes 200mg Take 1 tablet (200 mg total) by mouth 3 times daily. Nikia castro Insulin Glargine (Lantus SoloStar) 100 UNIT/ML subcutaneou s Solution Pen-injecto r 02-18 00:00: 00 Yes [id number] 23U Inject 23 units into the skin at bedtime. Nikia castro Losartan Potassium (COZAAR) 50 MG oral Tablet 02-17 00:00: 00 Yes 50mg Take 1 tablet (50 mg total) by mouth daily. Nikia castro Mupirocin (BACTROBAN) 2 % apply externally Ointment 02-17 00:00: 00 Yes [id number] Apply 1 applicatio n. topically 2 times daily. Nikia castro Amoxicillin -Pot Clavulanate 500-125 MG oral Tablet 10-21 00:00: 00 Yes [id number] 1{tbl} Take 1 tablet by mouth 2 times daily Nikia castro Amitriptyli ne HCl 25 MG oral Tablet 10-17 00:00: 00 Yes [id number] 25mg Take 1 tablet (25 mg total) by mouth at bedtime Nikia castro Clonidine HCl (CATAPRES) 0.1 MG oral Tablet 10-17 00:00: 00 Yes [id number] .1mg Take 1 tablet (0.1 mg total) by mouth 2 times daily Nikia castro hydrALAZINE HCl 100 MG oral Tablet 10-17 00:00: 00 Yes [id number] 100mg Take 1 tablet (100 mg total) by mouth 3 times daily Nikia castro Sodium Bicarbonate 650 MG oral Tablet 10-17 00:00: 00 Yes [id number] 650mg Take 1 tablet (650 mg total) by mouth 2 times daily Nikia castro Gabapentin 100 MG oral Capsule 10-17 00:00: 00 Yes [id number] 100mg Take 1 capsule (100 mg total) by mouth every 8 hours Nikia castro Furosemide (LASIX) 20 MG oral Tablet 10-17 00:00: 00 Yes [id number] 20mg Take 1 tablet (20 mg total) [...] Name Observation Time Observation Value Comments S ource Systolic blood pressure 2023-09-29 21:01:00 143 mm[Hg] Nikia Seybold - External Diastolic blood pressure 2023-09-29 21:01:00 78 mm[Hg] Nikia Seybold - External Heart rate 2023-09-29 21:01:00 90 /min Nikia Seybold - External Body temperature 2023-09-29 21:01:00 37.11 Josey Nikia Seybold - External Respiratory rate 2023-09-29 21:01:00 15 /min Nikia Seybold - External Body height 2023-09-29 21:01:00 167.6 cm Nikia Seybold - External Body weight 2023-09-29 21:01:00 72.576 kg Nikia Seybold - External BMI 2023-09-29 21:01:00 25.82 kg/m2 Nikia Seybold - External Oxygen saturation in Arterial blood by Pulse oximetry 2023-09-29 21:01:00 96 /min Nikia Seybold - External Systolic blood pressure 2023-03-20 15:31:00 144 mm[Hg] Nikia Seybold - External Diastolic blood pressure 2023-03-20 15:31:00 86 mm[Hg] [...] Body temperature 2022-10-17 13:01:00 36.61 Josey Nikia Seybold - External Respiratory rate 2022-10-17 13:01:00 16 /min Nikia Seybold - External Body height 2022-10-17 13:01:00 167.6 cm pt is in a wheel chair Nikia Seybold - External Body weight 2022-10-17 13:01:00 72.576 kg Nikia Seybold - External BMI 2022-10-17 13:01:00 25.82 kg/m2 Nikia Seybold - External Oxygen saturation in Arterial blood by Pulse oximetry 2022-10-17 13:01:00 97 /min Nikia Liang - External Procedures Procedure Date / Time Performed Performing Clinicia n Source REFERRAL TO [facility]AL [facility]- [facility] 2022-10-17 14:40:00 Lucrecia Ontiveros Seybmiguel - External [id number] 2022-09-08 00:00:[address] [facility] [id number] 2022-09-08 00:00:00 KARZE [facility] [id number] 2022-09-03 00:00:00 GIBJE.01 [facility] [id number] 2022-09-03 00:00:00 GIBJE.01 [facility] [id number] 2022-09-03 00:00:00 GIBJE.01 [facility] [id number] 2022-09-03 00:00:[address] [facility] [id number] 2022-09-03 00:00:00 GIBJE.01 [facility] [id number] 2022-08-28 00:00:00 JUAJE [facility] [id number] 2022-08-26 00:00:00 HACJE [facility] [id number] 2022-08-25 00:00:00 ALBPA [facility] [id number] 2022-08-19 00:00:00 REYSE [facility] Encounters Start Date/Time End Date/Time Encounter Type Admission Type Attending [facility] Care Facility Care Department Encounter ID Source 2024-02-26 15:20:00 2024-02-26 15:20:00 Outpatient CHARLES HACKETT [id number] Nikia Liang 2023-10-13 11:30:00 2023-10-13 11:30:00 Outpatient LAKESHIA ERNST [id number] Nikia Liang 2023-10-12 16:30:00 2023-10-12 16:30:00 Outpatient KENY BAJWA [id number] Nikia Woodybmiguel 2023-09-29 16:30:00 2023-09-29 16:30:00 Outpatient LAB90 NIKIA HARRINGTON [id number] Nikia Woodybmiguel 2023-09-29 15:45:00 2023-09-29 15:45:00 Outpatient RAMA, LUCRECIA HARRINGTON [id number] Nikia Woodybmiguel 2023-06-08 08:30:00 2023-06-08 08:30:00 Outpatient AKINADE, CEZARFRANCISCO HARRINGTON [id number] [facility] 2023-05-20 00:00:00 2023-05-20 00:00:00 Outpatient RAMA, LUCRECIA HARRINGTON [id number] [facility] 2023-05-06 08:30:00 2023-05-06 08:30:00 Outpatient AKINADE, CEZAR HARRINGTON [id number] [facility] 2023-04-27 08:15:00 2023-04-27 08:15:00 Outpatient PREZAS, LAKESHIAKANA HARRINGTON [id number] [facility] 2023-04-21 00:00:00 2023-04-21 00:00:00 Outpatient PREZAS, LAKESHIA HARRINGTON [id number] [facility] 2023-04-20 00:00:00 2023-04-20 00:00:00 Outpatient PREZASLAKESHIA [id number] Nikia Seybold 2023-04-19 00:00:00 2023-04-19 00:00:00 Outpatient RAMALUCRECIA SHAW [id number] [facility] 2023-04-10 00:00:00 2023-04-10 00:00:00 Outpatient RAMALUCRECIA SHAW [id number] [facility] 2023-04-09 00:00:00 2023-04-09 00:00:00 Outpatient RAMALUCRECIA SHAW [id number] Nikia Seybold 2023-04-06 09:15:00 2023-04-06 09:15:00 Outpatient AKINADE[id number] [facility] 2023-03-20 10:45:00 2023-03-20 10:45:00 Outpatient PREZAS, LAKESHIA HARRINGTON NIKIA [id number] [facility] 2023-03-11 09:00:00 2023-03-11 09:00:00 Outpatient AKINADE, CEZAR HARRINGTON NIKIA [id number] [facility] 2023-03-11 00:00:00 2023-03-11 00:00:00 Outpatient PREZAS, LAKESHIA HARRINGTON NIKIA [id number] [facility] 2023-03-10 00:00:00 2023-03-10 00:00:00 Outpatient PREZAS, LAKESHIA NIKIA NIKIA [id number] [facility] 2023-03-09 10:45:00 2023-03-09 10:45:00 Outpatient PREZAS, LAKESHIA NIKIA NIKIA [id number] [facility] 2023-02-27 00:00:00 2023-02-27 00:00:00 Outpatient PREZAS, LAKESHIA HARRINGTON NIKIA [id number] [facility] 2023-02-26 08:15:00 2023-02-26 08:15:00 Outpatient PREZAS, LAKESHIA NIKIA NIKIA [id number] [facility] 2023-02-23 10:15:00 2023-02-23 10:15:00 Outpatient SCARLETLYNDSEY NIKIA HARRINGTON [id number] [facility] 2023-02-19 00:00:00 2023-02-19 00:00:00 Outpatient PREZAS, LAKESHIA NIKIA NIKIA [id number] [facility] 2023-02-18 00:00:00 2023-02-18 00:00:00 Outpatient PREZAS, LAKESHIA NIKIA HARRINGTON [id number] [facility] 2023-02-18 00:00:00 2023-02-18 00:00:00 Outpatient PREZAS, LAKESHIA NIKIA HARRINGTON [id number] [facility] 2023-02-18 00:00:00 2023-02-18 00:00:00 Outpatient PREZAS, LAKESHIA NIKIA HARRINGTON [id number] [facility] 2023-02-17 09:35:00 2023-02-17 09:35:00 Outpatient LESLIE NIKIA HARRINGTON [id number] [facility] 2023-02-17 08:45:00 2023-02-17 08:45:00 Outpatient PREZASLAKESHIA NIKIA HARRINGTON [id number] [facility] 2023-02-15 00:00:00 2023-02-15 00:00:00 Outpatient RAMA, LUCRECIA NIKIA HARRINGTON [id number] [facility] 2023-01-23 09:20:00 2023-01-23 09:20:00 Outpatient NOCKLIANA NIKIA HARRINGTON [id number] [facility] 2023-01-21 00:00:00 2023-01-21 00:00:00 Outpatient RAMA, LUCRECIA HARRINGTON [id number] [facility] 2023-01-20 13:30:00 2023-01-20 13:30:00 Outpatient PREZAS, LAKESHIA NIKIA HARRINGTON [id number] [facility] 2022-12-26 00:00:00 2022-12-26 00:00:00 Outpatient RAMA, LUCRECIA HARRINGTON [id number] [facility] 2022-12-25 15:30:00 2022-12-25 15:30:00 Outpatient LYDIANUBIA NIKIA HARRINGTON [id number] [facility] 2022-12-23 00:00:00 2022-12-23 00:00:00 Outpatient PREZAS, LAKESHIA HARRINGTON [id number] [facility] 2022-12-23 00:00:00 2022-12-23 00:00:00 Outpatient RAMA, LUCRECIA HARRINGTON [id number] [facility] 2022-12-01 00:00:00 2022-12-01 00:00:00 Outpatient RAMALUCRECIA SHAW [id number] [facility] 2022-11-28 11:30:00 2022-11-28 11:30:00 Outpatient PREZAS, LAKESHIA HARRINGTON [id number] [facility] 2022-11-20 14:10:00 2022-11-20 14:10:00 Outpatient EVELIO NELSON NIKIA HARRINGTON [id number] Nikia Seybmiguel 2022-11-19 00:00:00 2022-11-19 00:00:00 Outpatient RAMA LUCRECIA HARRINGTON [id number] Nikia Woody[facility]iguel 2022-11-18 15:00:00 2022-11-18 15:00:00 Outpatient KRISTINAJONATHAN NIKIA HARRINGTON [id number] [facility] 2022-11-18 00:00:00 2022-11-18 00:00:00 Outpatient KRISTINA, JONATHAN HARRINGTON [id number] [facility] 2022-11-04 00:00:00 2022-11-04 00:00:00 Outpatient SHANTMARLENE APONTE NIKIA HARRINGTON [id number] [facility] 2022-10-27 00:00:00 2022-10-27 00:00:00 Outpatient LUCRECIA ONTIVEROS [id number] [facility] 2022-10-24 16:30:00 2022-10-24 16:30:00 Outpatient LUCRECIA ONTIVEROS [id number] [facility] 2022-10-21 00:00:00 2022-10-21 00:00:00 Outpatient LUCRECIA ONTIVEROS [id number] [facility] 2022-10-21 00:00:00 2022-10-21 00:00:00 Outpatient LUCRECIA ONTIVEROS [id number] [facility] 2022-10-17 09:20:00 2022-10-17 09:20:00 Outpatient LABEric HARRINGTON [id number] Nikia Seybold 2022-10-17 08:00:00 2022-10-17 08:00:00 Outpatient LUCRECIA ONTIVEROS [id number] [facility] 2022-10-17 00:00:00 2022-10-17 00:00:00 Outpatient LUCRECIA ONTIVEROS [id number] [facility] 2022-09-02 17:20:00 2022-09-24 18:29:00 Inpatient Mj Neves HCACL REHA [id number] 77 [facility] 2022-08-18 05:13:00 2022-09-02 16:55:00 Inpatient Wilbert Carbone HCACL INTE.02 [id number] 73 [facility] Results Test Description Test Time Test Comments Results Result Co mments Source GLUCOSE [id number] 11:20:00* Test Item Value Reference Range Interpretation Comme nts GLUCOSE BEDSIDE (test code = GLUBED) 100 MG/DL 70-110 N Performed by cer loganied kiln transfer operator at [facility] CBC W/AUTO [id number] 07:55:00* Test Item Value Reference Range Interpretation [...] c ode = MDIFF) NO BASIC METABOLIC [id number] 07:33:00* Test Item Value Reference Range Interpretation [...] code = CA) 7.8 mg/dL 8.0-10.5 L [id number] 07:33:00* Test Item Value Reference Range Interpretation Comme nts PHOSPHOROUS (test code = PHOS) 5.4 MG/DL 2.5-4.9 H [id number] 07:33:00* Test Item Value Reference Range Interpretation Comme nts MAGNESIUM (test code = MAG) 2.18 mg/dL 1.80-2.40 N GLUCOSE [id number] 06:08:00* Test Item Value Reference Range Interpretation Comme nts GLUCOSE BEDSIDE (test code = GLUBED) 176 MG/DL 70-110 H Performed by cer tified kiln transfer operator at [facility] GLUCOSE [id number] 19:52:00* Test Item Value Reference Range Interpretation Comme nts GLUCOSE BEDSIDE (test code = GLUBED) 194 MG/DL 70-110 H Performed by cer tified kiln transfer operator at [facility] GLUCOSE [id number] 15:58:00* Test Item Value Reference Range Interpretation Comme nts GLUCOSE BEDSIDE (test code = GLUBED) 146 MG/DL 70-110 H Performed by cer tified kiln transfer operator at [facility] GLUCOSE [id number] 11:33:00* Test Item Value Reference Range Interpretation Comme nts GLUCOSE BEDSIDE (test code = GLUBED) 231 MG/DL 70-110 H Performed by [facility] tified kiln transfer operator at [facility] BASIC METABOLIC [id number] 08:11:00* Test Item Value Reference Range Interpretation [...] code = CA) 7.8 mg/dL 8.0-10.5 L [id number] 08:11:00* Test Item Value Reference Range Interpretation Comme nts PHOSPHOROUS (test code = PHOS) 5.2 MG/DL 2.5-4.9 H [id number] 08:11:00* Test Item Value Reference Range Interpretation Comme nts MAGNESIUM (test code = MAG) 2.22 mg/dL 1.80-2.40 N CBC W/AUTO [id number] 07:10:00* Test Item Value Reference Range Interpretation [...] REQUIRED (test code = MDIFF) NO GLUCOSE [id number] 06:01:00* Test Item Value Reference Range Interpretation Comme [facility] GLUCOSE BEDSIDE (test code = GLUBED) 226 MG/DL 70-110 H Performed by cer tified kiln transfer operator at [facility] GLUCOSE [id number] 03:42:00* Test Item Value Reference Range Interpretation Comme nts GLUCOSE BEDSIDE (test code = GLUBED) 190 MG/DL 70-110 H Performed by cer tified kiln transfer operator at [facility] GLUCOSE [id number] 18:59:00* Test Item Value Reference Range Interpretation Comme nts GLUCOSE BEDSIDE (test code = GLUBED) 156 MG/DL 70-110 H Performed by cer tified kiln transfer operator at [facility] GLUCOSE [id number] 16:16:00* Test Item Value Reference Range Interpretation Comme nts GLUCOSE BEDSIDE (test code = GLUBED) 118 MG/DL 70-110 H Performed by cer tified kiln transfer operator at [facility] GLUCOSE [id number] 11:22:00* Test Item Value Reference Range Interpretation Comme nts GLUCOSE BEDSIDE (test code = GLUBED) 170 MG/DL 70-110 H Performed by cer tified kiln transfer operator at [facility] B-TYPE NATRIURETIC [id number] 07:36:00* Test Item Value Reference Range Interpretation Comme nts B-TYPE NATRIURETIC PEPTIDE ( test code = BNP) 251.0 PG/ML 0-100 H CBC W/AUTO [id number] 07:01:00* Test Item Value Reference Range Interpretation [...] (test c ode = MDIFF) NO GLUCOSE [id number] 06:33:00* Test Item Value Reference Range Interpretation Comme nts GLUCOSE BEDSIDE (test code = GLUBED) 251 MG/DL 70-110 H Performed by cer tified kiln transfer operator at [facility] BASIC METABOLIC [id number] 05:27:00* Test Item Value Reference Range Interpretation [...] code = CA) 7.3 mg/dL 8.0-10.5 L [id number] 05:27:00* Test Item Value Reference Range Interpretation Comme nts ALBUMIN (test code = ALB) 1.80 g/dL 3.4-5.0 L [id number] 05:27:00* Test Item Value Reference Range Interpretation Comme nts PHOSPHOROUS (test code = PHOS) 5.0 MG/DL 2.5-4.9 H CREATINE KINASE (CK)2022-09-22 05:27:00* Test Item Value Reference Range Interpretation Comme nts CREATINE KINASE (CK) (test c ode = CK) 27 Units/L 46-171 L [id number] 05:27:00* Test Item Value Reference Range Interpretation Comme nts MAGNESIUM (test code = MAG) 2.13 mg/dL 1.80-2.40 N [id number] 05:27:00* Test Item Value Reference Range Interpretation Comme nts PREALBUMIN (test code = PREALB) 16.7 mg/dL 16.0-40.0 N GLUCOSE [id number] 21:01:00* Test Item Value Reference Range Interpretation Comme nts GLUCOSE BEDSIDE (test code = GLUBED) 251 MG/DL 70-110 H Performed by cer tified kiln transfer operator at [facility] GLUCOSE [id number] 16:07:00* Test Item Value Reference Range Interpretation Comme nts GLUCOSE BEDSIDE (test code = GLUBED) 170 MG/DL 70-110 H Performed by cer tified kiln transfer operator at [facility] GLUCOSE [id number] 14:50:00* Test Item Value Reference Range Interpretation Comme nts GLUCOSE BEDSIDE (test code = GLUBED) 167 MG/DL 70-110 H Performed by cer tified kiln transfer operator at [facility] GLUCOSE [id number] 12:12:00* Test Item Value Reference Range Interpretation Comme nts GLUCOSE BEDSIDE (test code = GLUBED) 162 MG/DL 70-110 H Performed by cer tified kiln transfer operator at [facility] BASIC METABOLIC [id number] 08:19:00* Test Item Value Reference Range Interpretation [...] code = CA) 7.5 mg/dL 8.0-10.5 L [id number] 08:19:00* Test Item Value Reference Range Interpretation Comme nts PHOSPHOROUS (test code = PHOS) 5.0 MG/DL 2.5-4.9 H [id number] 08:19:00* Test Item Value Reference Range Interpretation Comme nts MAGNESIUM (test code = MAG) 2.06 mg/dL 1.80-2.40 N CBC W/AUTO [id number] 07:24:00* Test Item Value Reference Range Interpretation [...] REQUIRED (test code = MDIFF) NO GLUCOSE [id number] 05:59:00* Test Item Value Reference Range Interpretation Comme nts GLUCOSE BEDSIDE (test code = GLUBED) 155 MG/DL 70-110 H Performed by cer tified kiln transfer operator at [facility] GLUCOSE [id number] 20:10:00* Test Item Value Reference Range Interpretation Comme nts GLUCOSE BEDSIDE (test code = GLUBED) 239 MG/DL 70-110 H Performed by [employer] kiln transfer operator at [facility] GLUCOSE [id number] 16:14:00* Test Item Value Reference Range Interpretation Comme nts GLUCOSE BEDSIDE (test code = GLUBED) 159 MG/DL 70-110 H Performed by cer tified kiln transfer operator at [facility] GLUCOSE [id number] 11:52:00* Test Item Value Reference Range Interpretation Comme nts GLUCOSE BEDSIDE (test code = GLUBED) 155 MG/DL 70-110 H Performed by cer tified kiln transfer operator at [facility] GLUCOSE [id number] 09:34:00* Test Item Value Reference Range Interpretation Comme nts GLUCOSE BEDSIDE (test code = GLUBED) 299 MG/DL 70-110 H Performed by cer tified kiln transfer operator at [facility] BASIC METABOLIC [id number] 08:04:00* Test Item Value Reference Range Interpretation [...] code = CA) 7.4 mg/dL 8.0-10.5 L [id number] 08:04:00* Test Item Value Reference Range Interpretation Comme nts PHOSPHOROUS (test code = PHOS) 5.4 MG/DL 2.5-4.9 H [id number] 08:04:00* Test Item Value Reference Range Interpretation Comme nts MAGNESIUM (test code = MAG) 2.05 mg/dL 1.80-2.40 CBC W/AUTO [id number] 07:53:00* Test Item Value Reference Range Interpretation [...] (test c ode = MDIFF) NO GLUCOSE [id number] 05:15:00* Test Item Value Reference Range Interpretation Comme [facility] GLUCOSE BEDSIDE (test code = GLUBED) 277 MG/DL 70-110 H Performed by cer tified kiln transfer operator at [facility] GLUCOSE [id number] 20:06:00* Test Item Value Reference Range Interpretation Comme [facility] GLUCOSE BEDSIDE (test code = GLUBED) 236 MG/DL 70-110 H Performed by cer tified kiln transfer operator at [facility] GLUCOSE [id number] 16:11:00* Test Item Value Reference Range Interpretation Comme nts GLUCOSE BEDSIDE (test code = GLUBED) 224 MG/DL 70-110 H Performed by cer tified kiln transfer operator at [facility] GLUCOSE [id number] 11:46:00* Test Item Value Reference Range Interpretation Comme nts GLUCOSE BEDSIDE (test code = GLUBED) 96 MG/DL 70-110 N Performed by cer tified kiln transfer operator at [facility] CBC W/AUTO [id number] 07:51:00* Test Item Value Reference Range Interpretation [...] c ode = MDIFF) NO BASIC METABOLIC [id number] 07:34:00* Test Item Value Reference Range Interpretation [...] code = CA) 7.5 mg/dL 8.0-10.5 L [id number] 07:34:00* Test Item Value Reference Range Interpretation Comme nts PHOSPHOROUS (test code = PHOS) 5.0 MG/DL 2.5-4.9 H [id number] 07:34:00* Test Item Value Reference Range Interpretation Comme nts MAGNESIUM (test code = MAG) 1.69 mg/dL 1.80-2.40 L GLUCOSE [id number] 05:10:00* Test Item Value Reference Range Interpretation Comme nts GLUCOSE BEDSIDE (test code = GLUBED) 162 MG/DL 70-110 H Performed by cer tified kiln transfer operator at [facility] GLUCOSE [id number] 22:02:00* Test Item Value Reference Range Interpretation Comme nts GLUCOSE BEDSIDE (test code = GLUBED) 103 MG/DL 70-110 N Performed by cer tified kiln transfer operator at [facility] GLUCOSE [id number] 20:07:00* Test Item Value Reference Range Interpretation Comme nts GLUCOSE BEDSIDE (test code = GLUBED) 70 MG/DL 70-110 N Performed by cer tified kiln transfer operator at [facility] GLUCOSE [id number] 16:28:00* Test Item Value Reference Range Interpretation Comme nts GLUCOSE BEDSIDE (test code = GLUBED) 118 MG/DL 70-110 H Performed by cer tified kiln transfer operator at [facility] ANTINUCLEAR ANTIBODIES [id number] 12:11:00* Test Item Value Reference Range Interpretation Comme nts FANNIE SCREEN (test code = ANASCR) Negative See_Comment Negative <1:80 B orderline 1:80 Positive >1:80ICAP nomenclature: AC-0For more information about Hep-2 cell patterns useANApatterns.org, the official website for theInternational Consensus on Antinuclear Antibody (FANNIE)Patterns (ICAP).Performed At: [facility] [id number] Savage Castro MD Ph:[phone] [Automated message] The system which generated this result transmitted reference range: (). The reference range was not used to interpret this result as normal/abnormal. COMPLEMENT [id number] 12:11:00* Test Item Value Reference Range Interpretation Comme nts COMPLEMENT C3 (test code = COMC3) 121 mg/dL 82-167 Performed At: [facility] [id number] Kyle L MD Ph:[phone] COMPLEMENT [id number] 12:11:00* Test Item Value Reference Range Interpretation Comme nts COMPLEMENT C4 (test code = COMC4) 31 mg/dL 12-38 GLUCOSE [id number] 11:16:00* Test Item Value Reference Range Interpretation Comme nts GLUCOSE BEDSIDE (test code = GLUBED) 80 MG/DL 70-110 N Performed by cer tified kiln transfer operator at [facility] GLUCOSE [id number] 09:18:00* Test Item Value Reference Range Interpretation Comme nts GLUCOSE BEDSIDE (test code = GLUBED) 171 MG/DL 70-110 H Performed by cer tified kiln transfer operator at [facility] CBC W/AUTO [id number] 07:52:00* Test Item Value Reference Range Interpretation [...] c ode = MDIFF) NO BASIC METABOLIC [id number] 07:47:00* Test Item Value Reference Range Interpretation [...] code = CA) 7.5 mg/dL 8.0-10.5 L [id number] 07:47:00* Test Item Value Reference Range Interpretation Comme nts PHOSPHOROUS (test code = PHOS) 4.4 MG/DL 2.5-4.9 N [id number] 07:47:00* Test Item Value Reference Range Interpretation Comme nts MAGNESIUM (test code = MAG) 1.83 mg/dL 1.80-2.40 N GLUCOSE [id number] 05:52:00* Test Item Value Reference Range Interpretation Comme nts GLUCOSE BEDSIDE (test code = GLUBED) 203 MG/DL 70-110 H Performed by cer tified kiln transfer operator at [facility] GLUCOSE [id number] 19:34:00* Test Item Value Reference Range Interpretation Comme nts GLUCOSE BEDSIDE (test code = GLUBED) 160 MG/DL 70-110 H Performed by cer tified kiln transfer operator at [facility] GLUCOSE [id number] 16:16:00* Test Item Value Reference Range Interpretation Comme nts GLUCOSE BEDSIDE (test code = GLUBED) 75 MG/DL 70-110 N Performed by cer tified kiln transfer operator at [facility] GLUCOSE [id number] 10:44:00* Test Item Value Reference Range Interpretation Comme nts GLUCOSE BEDSIDE (test code = GLUBED) 256 MG/DL 70-110 H Performed by cer tified kiln transfer operator at [facility] GLUCOSE [id number] 10:03:00* Test Item Value Reference Range Interpretation Comme nts GLUCOSE BEDSIDE (test code = GLUBED) 287 MG/DL 70-110 H Performed by [employer] kiln transfer operator at [facility] CBC W/AUTO [id number] 09:09:00* Test Item Value Reference Range Interpretation [...] c ode = MDIFF) NO BASIC METABOLIC [id number] 07:34:00* Test Item Value Reference Range Interpretation [...] code = CA) 7.4 mg/dL 8.0-10.5 L [id number] 07:34:00* Test Item Value Reference Range Interpretation Comme nts PHOSPHOROUS (test code = PHOS) 4.5 MG/DL 2.5-4.9 N [id number] 07:34:00* Test Item Value Reference Range Interpretation Comme nts MAGNESIUM (test code = MAG) 1.97 mg/dL 1.80-2.40 N GLUCOSE [id number] 06:16:00* Test Item Value Reference Range Interpretation Comme nts GLUCOSE BEDSIDE (test code = GLUBED) 286 MG/DL 70-110 H Performed by cer tified kiln transfer operator at [facility] GLUCOSE [id number] 05:03:00* Test Item Value Reference Range Interpretation Comme nts GLUCOSE BEDSIDE (test code = GLUBED) 273 MG/DL 70-110 H Performed by cer tified kiln transfer operator at [facility] GLUCOSE [id number] 00:02:00* Test Item Value Reference Range Interpretation Comme nts GLUCOSE BEDSIDE (test code = GLUBED) 291 MG/DL 70-110 H Performed by cer tified kiln transfer operator at [facility] GLUCOSE [id number] 19:47:00* Test Item Value Reference Range Interpretation Comme nts GLUCOSE BEDSIDE (test code = GLUBED) 219 MG/DL 70-110 H Performed by cer tified kiln transfer operator at [facility] GLUCOSE [id number] 16:01:00* Test Item Value Reference Range Interpretation Comme nts GLUCOSE BEDSIDE (test code = GLUBED) 62 MG/DL 70-110 L Performed by cer tified kiln transfer operator at [facility] GLUCOSE [id number] 14:54:00* Test Item Value Reference Range Interpretation Comme nts GLUCOSE BEDSIDE (test code = GLUBED) 60 MG/DL 70-110 L Performed by cer tified kiln transfer operator at [facility] GLUCOSE [id number] 11:23:00* Test Item Value Reference Range Interpretation Comme nts GLUCOSE BEDSIDE (test code = GLUBED) 148 MG/DL 70-110 H Performed by cer tified kiln transfer operator at [facility] BASIC METABOLIC [id number] 08:08:00* Test Item Value Reference Range Interpretation [...] code = CA) 7.5 mg/dL 8.0-10.5 L [id number] 08:08:00* Test Item Value Reference Range Interpretation Comme nts PHOSPHOROUS (test code = PHOS) 4.6 MG/DL 2.5-4.9 N [id number] 08:08:00* Test Item Value Reference Range Interpretation Comme nts MAGNESIUM (test code = MAG) 1.93 mg/dL 1.80-2.40 N CBC W/AUTO [id number] 07:27:00* Test Item Value Reference Range Interpretation [...] (test c ode = MDIFF) NO GLUCOSE [id number] 06:07:00* Test Item Value Reference Range Interpretation Comme nts GLUCOSE BEDSIDE (test code = GLUBED) 195 MG/DL 70-110 H Performed by cer tified kiln transfer operator at [facility] GLUCOSE [id number] 20:10:00* Test Item Value Reference Range Interpretation Comme nts GLUCOSE BEDSIDE (test code = GLUBED) 124 MG/DL 70-110 H Performed by cer tified kiln transfer operator at [facility] GLUCOSE [id number] 16:55:00* Test Item Value Reference Range Interpretation Comme nts GLUCOSE BEDSIDE (test code = GLUBED) 137 MG/DL 70-110 H Performed by ruel hameed kiln transfer operator at [facility] URINALYSIS [id number] 13:55:00* Test Item Value Reference Range Interpretation [...] MUCU) TRACE /LPF NONE SEEN UR PROTEIN [id number] 13:55:00* Test Item Value Reference Range Interpretation Comme nts UR PROTEIN RANDOM (test code = PROTU) 283 mg/dL UR CREATININE [id number] 13:55:00* Test Item Value Reference Range Interpretation Comme nts UR CREATININE RANDOM (test code = CREATU) 52.5 mg/dL The Reference Ra nge and Method Performance specificationshave not been established for this fluid. The test resultshould be correlated into the clinical context forinterpretation. GLUCOSE [id number] 12:06:00* Test Item Value Reference Range Interpretation Comme nts GLUCOSE BEDSIDE (test code = GLUBED) 126 MG/DL 70-110 H Performed by cer zari kiln transfer operator at [facility] BASIC METABOLIC [id number] 08:02:00* Test Item Value Reference Range Interpretation [...] code = CA) 7.2 mg/dL 8.0-10.5 L [id number] 08:02:00* Test Item Value Reference Range Interpretation Comme nts ALBUMIN (test code = ALB) 1.50 g/dL 3.4-5.0 L [id number] 08:02:00* Test Item Value Reference Range Interpretation Comme nts PHOSPHOROUS (test code = PHOS) 5.7 MG/DL 2.5-4.9 H CREATINE KINASE (CK)2022-09-15 08:02:00* Test Item Value Reference Range Interpretation Comme nts CREATINE KINASE (CK) (test c ode = CK) 26 Units/L 46-171 L [id number] 08:02:00* Test Item Value Reference Range Interpretation Comme nts MAGNESIUM (test code = MAG) 1.96 mg/dL 1.80-2.40 N [id number] 08:02:00* Test Item Value Reference Range Interpretation Comme nts PREALBUMIN (test code = PREALB) 8.0 mg/dL 16.0-40.0 L CBC W/AUTO [id number] 07:38:00* Test Item Value Reference Range Interpretation [...] (test c ode = MDIFF) NO GLUCOSE [id number] 05:41:00* Test Item Value Reference Range Interpretation Comme nts GLUCOSE BEDSIDE (test code = GLUBED) 309 MG/DL 70-110 H Performed by cer tified kiln transfer operator at [facility] GLUCOSE [id number] 19:58:00* Test Item Value Reference Range Interpretation Comme nts GLUCOSE BEDSIDE (test code = GLUBED) 193 MG/DL 70-110 H Performed by cer tified kiln transfer operator at [facility] GLUCOSE [id number] 16:03:00* Test Item Value Reference Range Interpretation Comme nts GLUCOSE BEDSIDE (test code = GLUBED) 60 MG/DL 70-110 L Performed by cer tified kiln transfer operator at [facility] GLUCOSE [id number] 12:33:00* Test Item Value Reference Range Interpretation Comme nts GLUCOSE BEDSIDE (test code = GLUBED) 137 MG/DL 70-110 H Performed by cer tified kiln transfer operator at [facility] GLUCOSE [id number] 07:47:00* Test Item Value Reference Range Interpretation Comme nts GLUCOSE BEDSIDE (test code = GLUBED) 290 MG/DL 70-110 H Performed by cer tified kiln transfer operator at [facility] BASIC METABOLIC [id number] 07:42:00* Test Item Value Reference Range Interpretation [...] CA) 7.5 mg/dL 8.0-10.5 L CBC W/AUTO [id number] 07:17:00* Test Item Value Reference Range Interpretation [...] (test c ode = MDIFF) NO GLUCOSE [id number] 05:52:00* Test Item Value Reference Range Interpretation Comme [facility] GLUCOSE BEDSIDE (test code = GLUBED) 334 MG/DL 70-110 H Performed by cer tified kiln transfer operator at [facility] GLUCOSE [id number] 19:56:00* Test Item Value Reference Range Interpretation Comme [facility] GLUCOSE BEDSIDE (test code = GLUBED) 248 MG/DL 70-110 H Performed by cer tified kiln transfer operator at [facility] GLUCOSE [id number] 17:45:00* Test Item Value Reference Range Interpretation Comme nts GLUCOSE BEDSIDE (test code = GLUBED) 130 MG/DL 70-110 H Performed by cer tified kiln transfer operator at [facility] GLUCOSE [id number] 12:16:00* Test Item Value Reference Range Interpretation Comme nts GLUCOSE BEDSIDE (test code = GLUBED) 307 MG/DL 70-110 H Performed by cer tified kiln transfer operator at [facility] CBC W/AUTO [id number] 08:13:00* Test Item Value Reference Range Interpretation [...] c ode = MDIFF) NO BASIC METABOLIC [id number] 07:31:00* Test Item Value Reference Range Interpretation [...] code = CA) 7.8 mg/dL 8.0-10.5 L [id number] 07:31:00* Test Item Value Reference Range Interpretation Comme nts PHOSPHOROUS (test code = PHOS) 4.7 MG/DL 2.5-4.9 N [id number] 07:31:00* Test Item Value Reference Range Interpretation Comme nts MAGNESIUM (test code = MAG) 1.92 mg/dL 1.80-2.40 N GLUCOSE [id number] 05:57:00* Test Item Value Reference Range Interpretation Comme nts GLUCOSE BEDSIDE (test code = GLUBED) 258 MG/DL 70-110 H Performed by cer tified kiln transfer operator at [facility] GLUCOSE [id number] 20:29:00* Test Item Value Reference Range Interpretation Comme nts GLUCOSE BEDSIDE (test code = GLUBED) 223 MG/DL 70-110 H Performed by cer tified kiln transfer operator at [facility] GLUCOSE [id number] 16:20:00* Test Item Value Reference Range Interpretation Comme nts GLUCOSE BEDSIDE (test code = GLUBED) 150 MG/DL 70-110 H Performed by cer tified kiln transfer operator at [facility] UR SMEAR EOSINOPHIL [id number] 12:30:00* Test Item Value Reference Range Interpretation Comme [facility] UR SMEAR EOSINOPHIL COUNT (t est code = EOSCTU) NONE SEEN B-TYPE NATRIURETIC [id number] 12:00:00* Test Item Value Reference Range Interpretation Comme [facility] B-TYPE NATRIURETIC PEPTIDE ( test code = BNP) 297.0 PG/ML 0-100 H GLUCOSE [id number] 11:27:00* Test Item Value Reference Range Interpretation Comme nts GLUCOSE BEDSIDE (test code = GLUBED) 68 MG/DL 70-110 L Performed by cer [employer] kiln transfer operator at [facility] CBC W/AUTO [id number] 07:35:00* Test Item Value Reference Range Interpretation [...] c ode = MDIFF) NO BASIC METABOLIC [id number] 07:27:00* Test Item Value Reference Range Interpretation [...] code = CA) 8.2 mg/dL 8.0-10.5 N [id number] 07:27:00* Test Item Value Reference Range Interpretation Comme nts PHOSPHOROUS (test code = PHOS) 4.4 MG/DL 2.5-4.9 N [id number] 07:27:00* Test Item Value Reference Range Interpretation Comme nts MAGNESIUM (test code = MAG) 1.86 mg/dL 1.80-2.40 N GLUCOSE [id number] 06:33:00* Test Item Value Reference Range Interpretation Comme nts GLUCOSE BEDSIDE (test code = GLUBED) 170 MG/DL 70-110 H Performed by cer tified kiln transfer operator at [facility] - XR CHEST 1 [id number] 00:00:00 [facility] 1965 Sex: MFAX: Mj Sierra [phone] [place]: St: ADM FAX: Rohit Benitez NP [phone] ---- Name: KARMA ROWLAND [facility] : 1965 Age/S: 56/M [address] [place] [address] Unit #: [id number] Loc: G.[address] [place] [address] Phys: Rohit Benitez NP Acct: [id number] Dis Date: Status: ADM IN PHONE #: [phone] Exam Date: 09/12/2022 1418 FAX #: [phone] Reason: rales and leg edema EXAMS: CPT CODE: [id number] XR CHEST 1 V 91212 PROCEDURE INFORMATION: Exam: XR Chest Exam date and time: 09/12/2022 1:52 PM Age: 56 years old Clinical indication: Other: Rales; Additional info: Rales and leg edema TECHNIQUE: Imaging protocol: Radiologic exam of the chest. Views: 1 view. COMPARISON: CR XR CHEST 1V 2022 2:30 PM FINDINGS: Tubes, catheters and devices: Stable right PICC line. Lungs: Worsening opacities in the right mid and lower lung reyes. Mildly improved left retrocardiac opacities. The other lung opacities are stable. Pleural spaces: No pleural effusion. No pneumothorax. Heart/Mediastinum:Stable heart size. Diaphragm: Stable elevation of the right hemidiaphragm. Bones/joints: Stable. IMPRESSION: Worsening opacities in the right mid and lower lung reyes. Mildly improved left retrocardiac opacities. at 2028 Reported and signed by: Abel Browen M.D. CC: Mj Vences; Rohit Benitez NP Technologist: RT Angela(R) Trnscrd Date/Time/By: 09/12/2022 (2028) : By: TipSW20 Orig Print D/T: S: 09/12/2022 (2028) PAGE 1 Signed Report [id number] 22:00:00* Test Item Value Reference Range Interpretation Comme nts VANCOMYCIN (test code = VANCO) 16.7 mcg/mL GLUCOSE [id number] 19:49:00* Test Item Value Reference Range Interpretation Comme nts GLUCOSE BEDSIDE (test code = GLUBED) 150 MG/DL 70-110 H Performed by cer tified kiln transfer operator at [facility] GLUCOSE [id number] 16:32:00* Test Item Value Reference Range Interpretation Comme nts GLUCOSE BEDSIDE (test code = GLUBED) 93 MG/DL 70-110 N Performed by cer tified kiln transfer operator at [facility] [id number] 15:18:00* Test Item Value Reference Range Interpretation Comme nts VANCOMYCIN (test code = VANCO) 18.3 mcg/mL IMMUNOELECTROPHORESIS [id number] 14:11:00* Test Item Value Reference Range Interpretation Comme nts IMMUNOGLOBULIN A (test code = ADDI) 598 mg/dL 90-386 A IMMUNOGLOBULIN G (test code = IMMG) 2452 mg/dL 603-1613 A IMMUNOGLOBULIN M (test code = IMMM) 54 mg/dL 20-172 Performed At: DA [facility] [address] [facility] [address] [place], [place] [id number] CN MD Ph:[phone] ed At: [facility] [address] [id number] Savage Castro MD Ph:[phone] IMMUNOFIXATION SERUM (test code = IMMFIXS) Note: See_Comment Polyclonal increase detected in one or moreimmunoglobulins. [Automated message] The system which generated this result transmitted reference range: (). The reference range was not used to interpret this result as normal/abnormal. LACTIC DEHYDROGENASE(LDH)2022-09-11 14:11:00* Test Item Value Reference Range Interpretation Comme [facility] LACTIC DEHYDROGENASE(LDH) (t est code = LDH) 193 IUnits/L 87-241 N TOTAL IRON BINDING [id number] 14:11:00* Test Item Value Reference Range Interpretation Comme nts SERUM IRON (test code = IRON) 10 mcg/dL 35-150 L TOTAL IRON BINDING CAPACITY (test code = TIBC) 138 mcg/dL 260-445 L UIBC (test code = UIBC) 128 mcg/dL IRON SATURATION (test code = FESAT) 7.2 % 14-34 L [id number] 14:11:00* Test Item Value Reference Range Interpretation Comme nts FERRITIN (test code = COLEMAN) 700.5 ng/mL 23.9-336.2 H GLUCOSE [id number] 11:40:00* Test Item Value Reference Range Interpretation Comme nts GLUCOSE BEDSIDE (test code = GLUBED) 109 MG/DL 70-110 N Performed by cer tified kiln transfer operator at [facility] CBC W/AUTO [id number] 09:23:00* Test Item Value Reference Range Interpretation [...] c ode = MDIFF) NO BASIC METABOLIC [id number] 07:56:00* Test Item Value Reference Range Interpretation [...] code = CA) 8.3 mg/dL 8.0-10.5 N [id number] 07:56:00* Test Item Value Reference Range Interpretation Comme nts PHOSPHOROUS (test code = PHOS) 4.7 MG/DL 2.5-4.9 N [id number] 07:56:00* Test Item Value Reference Range Interpretation Comme nts MAGNESIUM (test code = MAG) 1.90 mg/dL 1.80-2.40 N GLUCOSE [id number] 05:55:00* Test Item Value Reference Range Interpretation Comme nts GLUCOSE BEDSIDE (test code = GLUBED) 127 MG/DL 70-110 H Performed by cer tified kiln transfer operator at [facility] GLUCOSE [id number] 19:45:00* Test Item Value Reference Range Interpretation Comme nts GLUCOSE BEDSIDE (test code = GLUBED) 97 MG/DL 70-110 N Performed by cer tified kiln transfer operator at [facility] GLUCOSE [id number] 17:28:00* Test Item Value Reference Range Interpretation Comme nts GLUCOSE BEDSIDE (test code = GLUBED) 75 MG/DL 70-110 N Performed by cer tified kiln transfer operator at [facility] GLUCOSE [id number] 16:37:00* Test Item Value Reference Range Interpretation Comme nts GLUCOSE BEDSIDE (test code = GLUBED) 58 MG/DL 70-110 L Performed by cer tified kiln transfer operator at [facility] [id number] 15:14:00* Test Item Value Reference Range Interpretation Comme nts VANCOMYCIN (test code = VANCO) 15.7 mcg/mL [id number] 15:13:00* Test Item Value Reference Range Interpretation Comme nts HAPTOGLOBIN (test code = HAPT) 292 mg/dL 29-370 Performed At: DA [facility] [address] [facility] [address] [place], [place] [id number] CN MD Ph:[phone] SHORT SAMPLE - NOTIFIED NURSE LISA FOR RED TUBE. G.LAB.KAF04 1852GLUCOSE [id number] 10:19:00* Test Item Value Reference Range Interpretation Comme nts GLUCOSE BEDSIDE (test code = GLUBED) 213 MG/DL 70-110 H Performed by cer tified kiln transfer operator at [facility] BASIC METABOLIC [id number] 08:33:00* Test Item Value Reference Range Interpretation [...] code = CA) 8.3 mg/dL 8.0-10.5 N [id number] 08:33:00* Test Item Value Reference Range Interpretation Comme nts PHOSPHOROUS (test code = PHOS) 4.6 MG/DL 2.5-4.9 N [id number] 08:33:00* Test Item Value Reference Range Interpretation Comme nts MAGNESIUM (test code = MAG) 1.89 mg/dL 1.80-2.40 N CBC W/AUTO [id number] 08:16:00* Test Item Value Reference Range Interpretation [...] (test c ode = MDIFF) NO GLUCOSE [id number] 06:02:00* Test Item Value Reference Range Interpretation Comme nts GLUCOSE BEDSIDE (test code = GLUBED) 154 MG/DL 70-110 H Performed by ruel hameed kiln transfer operator at [facility] - US RETROPERITONEAL [id number] 00:00:00 [facility] 1965 Sex: M Name: KARMA ROWLAND [facility] : 1965 Age/S: 56 / M [address] [place] [address] Unit #: [id number] Loc: [place] [address] Phys: Barrera Ramírez MD Acct: [id number] Dis Date: Status: ADM IN PHONE #: [phone] Exam Date: 09/10/2022 1311 FAX #: [phone] Reason: ERIKA EXAMS: CPT CODE: [id number] US RETROPERITONEAL COM [id number] PROCEDURE INFORMATION: Exam: US Retroperitoneal; Complete; Kidneys [...] findings. * * at 1503 Reported and signed by: Bishop Mares M.D. CC: Barrera Ramírez MD; Mj Vences Technologist: Anisa Garnett RDMS(Vielka)(BR) Trnscb Date/Time: 09/10/2022 (1503) TipTDO Orig Print D/T: S: 09/10/2022 (1503) Probe: PAGE 1 Signed ReportGLUCOSE [id number] 19:36:00* Test Item Value Reference Range Interpretation Comme nts GLUCOSE BEDSIDE (test code = GLUBED) 102 MG/DL 70-110 N Performed by cer tified kiln transfer operator at [facility] GLUCOSE [id number] 16:18:00* Test Item Value Reference Range Interpretation Comme nts GLUCOSE BEDSIDE (test code = GLUBED) 109 MG/DL 70-110 N Performed by cer tified kiln transfer operator at [facility] GLUCOSE [id number] 16:18:00* Test Item Value Reference Range Interpretation Comme nts GLUCOSE BEDSIDE (test code = GLUBED) 30 MG/DL 70-110 L Performed by ruel arce at [facility] [facility] [id number] 14:38:00* Test Item Value Reference Range Interpretation Comme nts VANCOMYCIN (test code = VANCO) 15.4 mcg/mL [id number] 13:34:00* Test Item Value Reference Range Interpretation Comme nts SURGICAL (test code = SR) R UN DATE: 09/09/22 [facility] - LAB PAGE 1 RUN TIME: 1335 Specimen Inquiry RUN USER: INTERFACE P ATIENT: KARMA ROWLAND LOC: [address] U #: [id number] AGE/SX: 56/M ROOM: [facility] RE09/02/22CHRIS DR: Mj Vences MD : 61 BED: 1 DIS: STATUS: ADM IN TLOC: SPEC #: [id number] RECD: 09/08/22 STATUS: JC CORTEZ #: [id number] JULIENNE: 09/08/22- SUBM DR: Kassie Avitia MD ENTERED: 09/08/22 SP TYPE: SURGICAL OTHR DR: Valerie Primary or Family Physician Wilbert Ramires MD, Mirza Z MD Blackburn, James PA Blackburn, Jeannie A NP Dar, Bilal MD Kaul,Braxton Lawrence,Roxie Trinidad,Aleah Parham,Napoleon Pedersen,Liam X DPMORDERED: [id number], ANATOMIC SPEC COPIES TO: No Primary or Family Physician Wilbert Ramires MD [address] [facility] [address] [place], [place] [address] [place] [address] [facility] [address] [place] [address] Guero Candelaria [address] [facility] [address] [place], [place] [address] Mirella Candelaria NP [address] [facility] [place], [place] [address] Kingsley Ng MD [address] [facility] [address] [place], [place] [id number] CONTINUED ON NEXT PAGE R UN DATE: 09/09/22 [facility] - [facility] PAGE 2 RUN TIME: 1335 Specimen Inquiry RUN USER: INTERFACE S GLENROY #: [id number] PATIENT: KARMA ROWLAND #[id number] (Continued) COPIES TO: (Continued) Kassie Avitia MD [address], [address] [place] [address] Braxton Chapin MD 2060 [facility] [address] [place] [address] Roxie Lawrence [address] [place] [id number] Aleah Trinidad MD [facility] [facility] [address] [place] [address] OTHER PHONE [phone] (CELL) Napoleon Parham MD [address] [facility], [address] [place] [address] Liam Pedersen DPM 110 [facility], [address] [place] [address] [email or web address] PROCEDURES: [id number] (09/08/22-1405) TISSUES: A. RECTUM BIOPSY CLINICAL HISTORY GASTRITIS, GASTRIC POLYP FINAL DIAGNOSIS Rectum, polypectomy: Tubular adenoma. CONTINUED ON NEXT PAGE R UN DATE: 09/09/22 [facility] PAGE 3 RUN TIME: 1335 Specimen Inquiry RUN USER: INTERFACE S GLENROY #: [id number] PATIENT: KARMA ROWLAND #[id number] (Continued) GROSS DESCRIPTION Received in formalin and designated rectal polyp biopsy is 1 segment of pink-bajwa tissuemeasuring 0.2 cm. Submitted in 1 cassette. Technical component performed at [facility],[address] [place] [address] Unless gross only, the diagnosis is based [...] Patino 09/09/22 1334 END OF REPORT GLUCOSE [id number] 11:16:00* Test Item Value Reference Range Interpretation Comme nts GLUCOSE BEDSIDE (test code = GLUBED) 90 MG/DL 70-110 N Performed by ruel hameed kiln transfer operator at [facility] BASIC METABOLIC [id number] 08:03:00* Test Item Value Reference Range Interpretation [...] code = CA) 8.2 mg/dL 8.0-10.5 N [id number] 08:03:00* Test Item Value Reference Range Interpretation Comme nts PHOSPHOROUS (test code = PHOS) 4.0 MG/DL 2.5-4.9 N [id number] 08:03:00* Test Item Value Reference Range Interpretation Comme nts MAGNESIUM (test code = MAG) 1.89 mg/dL 1.80-2.40 CBC W/AUTO [id number] 07:03:00* Test Item Value Reference Range Interpretation [...] (test c ode = MDIFF) NO GLUCOSE [id number] 05:56:00* Test Item Value Reference Range Interpretation Comme nts GLUCOSE BEDSIDE (test code = GLUBED) 128 MG/DL 70-110 H Performed by cer tified kiln transfer operator at [facility] GLUCOSE [id number] 20:07:00* Test Item Value Reference Range Interpretation Comme nts GLUCOSE BEDSIDE (test code = GLUBED) 106 MG/DL 70-110 N Performed by cer tified kiln transfer operator at [facility] RETIC COUNT (AUTOMATED)2022-09-08 19:16:00* Test Item Value Reference Range Interpretation Comme nts RETIC COUNT (AUTOMATED) (ozzy t code = RETICA) 1.3 % 0.3-2.3 N GLUCOSE [id number] 16:29:00* Test Item Value Reference Range Interpretation Comme nts GLUCOSE BEDSIDE (test code = GLUBED) 120 MG/DL 70-110 H Performed by cer tified kiln transfer operator at [facility] GLUCOSE [id number] 13:31:00* Test Item Value Reference Range Interpretation Comme nts GLUCOSE BEDSIDE (test code = GLUBED) 101 MG/DL 70-110 N Performed by cer tified kiln transfer operator at [facility] [id number] 11:14:00* Test Item Value Reference Range Interpretation Comme nts VANCOMYCIN (test code = VANCO) 15.8 mcg/mL COMMENTS: RN: vanc dose by level, draw vanc level on timeGLUCOSE BEDSIDE 2022-09-08 10:56:00* Test Item Value Reference Range Interpretation Comme nts GLUCOSE BEDSIDE (test code = GLUBED) 99 MG/DL 70-110 N Performed by cer tified kiln transfer operator at [facility] BASIC METABOLIC [id number] 09:21:00* Test Item Value Reference Range Interpretation [...] code = CA) 8.1 mg/dL 8.0-10.5 N [id number] 09:21:00* Test Item Value Reference Range Interpretation Comme nts ALBUMIN (test code = ALB) 1.30 g/dL 3.4-5.0 L CREATINE KINASE (CK)2022-09-08 09:21:00* Test Item Value Reference Range Interpretation Comme nts CREATINE KINASE (CK) (test c ode = CK) 22 Units/L 46-171 L [id number] 09:21:00* Test Item Value Reference Range Interpretation Comme nts MAGNESIUM (test code = MAG) 1.58 mg/dL 1.80-2.40 L [id number] 09:21:00* Test Item Value Reference Range Interpretation Comme nts PREALBUMIN (test code = PREALB) < 5.0 mg/dL 16.0-40.0 L CBC W/AUTO [id number] 09:02:00* Test Item Value Reference Range Interpretation [...] (test c ode = MDIFF) NO GLUCOSE [id number] 06:36:00* Test Item Value Reference Range Interpretation Comme nts GLUCOSE BEDSIDE (test code = GLUBED) 101 MG/DL 70-110 N Performed by cer tified kiln transfer operator at [facility] GLUCOSE [id number] 23:02:00* Test Item Value Reference Range Interpretation Comme nts GLUCOSE BEDSIDE (test code = GLUBED) 135 MG/DL 70-110 H Performed by cer tified kiln transfer operator at [facility] GLUCOSE [id number] 21:22:00* Test Item Value Reference Range Interpretation Comme nts GLUCOSE BEDSIDE (test code = GLUBED) 127 MG/DL 70-110 H Performed by cer tified kiln transfer operator at [facility] GLUCOSE [id number] 16:06:00* Test Item Value Reference Range Interpretation Comme nts GLUCOSE BEDSIDE (test code = GLUBED) 112 MG/DL 70-110 H Performed by cer tified kiln transfer operator at [facility] GLUCOSE [id number] 11:51:00* Test Item Value Reference Range Interpretation Comme nts GLUCOSE BEDSIDE (test code = GLUBED) 51 MG/DL 70-110 L Performed by cer tified kiln transfer operator at [facility] GLUCOSE [id number] 11:44:00* Test Item Value Reference Range Interpretation Comme nts GLUCOSE BEDSIDE (test code = GLUBED) 42 MG/DL 70-110 L Performed by cer tified kiln transfer operator at [facility] [id number] 08:33:00* Test Item Value Reference Range Interpretation Comme nts VANCOMYCIN (test code = VANCO) 14.7 mcg/mL HGB [id number] 07:59:00* Test Item Value Reference Range Interpretation Comme nts HEMOGLOBIN (test code = HGB) 8.4 g/dL 12.5-16.9 L HEMATOCRIT (test code = HCT) 26.2 % 37.5-50.7 L [id number] 07:51:00* Test Item Value Reference Range Interpretation Comme nts CREATININE (test code = CREAT) 1.4 mg/dL 0.6-1.3 H GLUCOSE [id number] 06:34:00* Test Item Value Reference Range Interpretation Comme nts GLUCOSE BEDSIDE (test code = GLUBED) 135 MG/DL 70-110 H Performed by cer tified kiln transfer operator at [facility] GLUCOSE [id number] 22:38:00* Test Item Value Reference Range Interpretation Comme nts GLUCOSE BEDSIDE (test code = GLUBED) 192 MG/DL 70-110 H Performed by cer tified kiln transfer operator at [facility] GLUCOSE [id number] 21:31:00* Test Item Value Reference Range Interpretation Comme nts GLUCOSE BEDSIDE (test code = GLUBED) 211 MG/DL 70-110 H Performed by cer tified kiln transfer operator at [facility] VANCOMYCIN [id number] 16:23:00* Test Item Value Reference Range Interpretation Comme nts VANCOMYCIN TROUGH (test code = VANCT) 18.9 mcg/mL 10.0-20.0 N 10-15 mcg/mL - Cellulitis, Urinary Tract Infection. 15-20 mcg/mL - Bacteremia, Infective Endocarditis, Meningitis, Osteomyelitis, Pneumonia, Severe Skin/Soft-Tissue Infection, Spinal Abscess. GLUCOSE [id number] 16:02:00* Test Item Value Reference Range Interpretation Comme nts GLUCOSE BEDSIDE (test code = GLUBED) 119 MG/DL 70-110 H Performed by cer tified kiln transfer operator at [facility] GLUCOSE [id number] 11:03:00* Test Item Value Reference Range Interpretation Comme nts GLUCOSE BEDSIDE (test code = GLUBED) 92 MG/DL 70-110 N Performed by [employer] kiln transfer operator at [facility] HGB [id number] 08:55:00* Test Item Value Reference Range Interpretation Comme nts HEMOGLOBIN (test code = HGB) 8.6 g/dL 12.5-16.9 L HEMATOCRIT (test code = HCT) 26.1 % 37.5-50.7 L [id number] 07:45:00* Test Item Value Reference Range Interpretation Comme nts CREATININE (test code = CREAT) 1.4 mg/dL 0.6-1.3 H GLUCOSE [id number] 06:18:00* Test Item Value Reference Range Interpretation Comme nts GLUCOSE BEDSIDE (test code = GLUBED) 124 MG/DL 70-110 H Performed by cer tified kiln transfer operator at [facility] GLUCOSE [id number] 19:36:00* Test Item Value Reference Range Interpretation Comme nts GLUCOSE BEDSIDE (test code = GLUBED) 117 MG/DL 70-110 H Performed by cer tified kiln transfer operator at [facility] GLUCOSE [id number] 16:51:00* Test Item Value Reference Range Interpretation Comme nts GLUCOSE BEDSIDE (test code = GLUBED) 123 MG/DL 70-110 H Performed by cer tified kiln transfer operator at [facility] GLUCOSE [id number] 12:01:00* Test Item Value Reference Range Interpretation Comme nts GLUCOSE BEDSIDE (test code = GLUBED) 74 MG/DL 70-110 N Performed by cer tified kiln transfer operator at [facility] HGB [id number] 07:54:00* Test Item Value Reference Range Interpretation Comme nts HEMOGLOBIN (test code = HGB) 7.1 g/dL 12.5-16.9 L HEMATOCRIT (test code = HCT) 22.7 % 37.5-50.7 L BASIC METABOLIC [id number] 07:40:00* Test Item Value Reference Range Interpretation [...] CA) 7.9 mg/dL 8.0-10.5 L - XR [facility] 1 [id number] 00:00:00 [facility] : 1965 Sex: MFAX: Mj Sierra [phone] [place]: St: [facility] FAX: Rohit Benitez NP [phone] ---- Name: ROWLANDBEATA LYNNEO [facility] : 1965 Age/S: 56/M [address] [place] [address] Unit #: [id number] Loc: [place] [address] Phys: Rohit Benitez NP Acct: [id number] Dis Date: Status: ADM IN PHONE #: [phone] Exam Date: 09/05/2022 [facility] FAX #: [phone] Reason: sob EXAMS: CPT CODE: [id number] XR CHEST 1 V 23278 PROCEDURE INFORMATION: Exam: XR Chest Exam date and time: 09/05/2022 2:30 PM Age: 56 years old Clinical indication: Shortness of breath; Additional info: SOB TECHNIQUE: Imaging protocol:Radiologic exam of the chest. Views: 1 view. COMPARISON: DX XR CHEST 2 V 08/18/2022 1:58 AM FINDINGS: Lungs: There are minimal bibasilar pulmonary opacities, right greater than left. A right-sided PICC line is present with tip in the region of the distal SVC. Pleural spaces: Unremarkable. No pleuraleffusion. No pneumothorax. Heart/Mediastinum: Heart size is within normal limits. Vasculature is un remarkable. Bones/joints: Unremarkable. IMPRESSION: Minimal bibasilar pulmonary opacities at 1515 Reported and signed by: Bishop Mares M.D. CC: Mj Vencse; Rohit Benitez NP Technologist: Jenaro Escobarrd Date/Time/By: 09/05/2022 (1515) : By: TipTDO Orig Print D/T: S: 09/05/2022 (2915) PAGE 1 Signed Report- [place]/[id number] 00:00:00 [facility] : 1965 Sex: MName: KARMA ROWLAND [facility] : 1965 Age/S: 56 / M [address] [place] [address] Unit #: [id number] Loc: [place] [address] Phys: Mj Vences MD Acct: [id number] Dis Date: Status: ADM IN PHONE #: [phone] Exam Date: 09/05/2022 1146 FAX #: [phone] Reason: R/0 DVT EXAMS: CPT CODE: [id number] DUP VEIN UNI/LTD 26039 PROCEDURE INFORMATION: Exam: US Duplex Left Lower Extr emity Veins, Limited Exam date and time: 09/05/2022 [...] extremity veins. COMPARISON: US DUP VEIN UNI/LTD 08/28/2022 8:40 AM FINDINGS: Left deep veins: Unremarkable. The common femoral, femoral, proximal profunda femoral and popliteal veins are patent without thrombus. Normal Doppler waveforms. Normal compressibility and/or augmentation response. Left superficial veins: Unremarkable. Saphenofemoral junction is patent without thrombus. Soft tissues: Complex heterogeneous hypoechoic fluid collection inthe left calf region measuring 8.4 x 2.8 x 2.5 cm; there is no internal vascularity or peripheral hy peremia. Heterogeneous superficial soft tissue may represent edema [...] Vences Technologist: Dave Gaines Trnscb Date/Time: 09/05/2022 (1331) TipAB53 Orig Print D/T: S: 09/05/2022 (1163) Probe: PAGE 1 Signed Report [facility] [id number] 20:54:00* Test Item Value Reference Range Interpretation Comme nts GLUCOSE BEDSIDE (test code = GLUBED) 103 MG/DL 70-110 N Performed by cer tified kiln transfer operator at [facility] VANCOMYCIN [id number] 17:00:00* Test Item Value Reference Range Interpretation Comme nts VANCOMYCIN TROUGH (test code = VANCT) 12.8 mcg/mL 10.0-20.0 N 10-15 mcg/mL - Cellulitis, Urinary Tract Infection. 15-20 mcg/mL - Bacteremia, Infective Endocarditis, Meningitis, Osteomyelitis, Pneumonia, Severe Skin/Soft-Tissue Infection, Spinal Abscess. GLUCOSE [id number] 16:20:00* Test Item Value Reference Range Interpretation Comme nts GLUCOSE BEDSIDE (test code = GLUBED) 128 MG/DL 70-110 H Performed by cer tified kiln transfer operator at [facility] HGB [id number] 11:42:00* Test Item Value Reference Range Interpretation Comme nts HEMOGLOBIN (test code = HGB) 7.7 g/dL 12.5-16.9 L HEMATOCRIT (test code = HCT) 23.7 % 37.5-50.7 L GLUCOSE [id number] 11:21:00* Test Item Value Reference Range Interpretation Comme nts GLUCOSE BEDSIDE (test code = GLUBED) 107 MG/DL 70-110 N Performed by cer tified kiln transfer operator at [facility] GLUCOSE [id number] 08:28:00* Test Item Value Reference Range Interpretation Comme nts GLUCOSE BEDSIDE (test code = GLUBED) 99 MG/DL 70-110 N Performed by cer tified kiln transfer operator at [facility] GLUCOSE [id number] 07:33:00* Test Item Value Reference Range Interpretation Comme nts GLUCOSE BEDSIDE (test code = GLUBED) 87 MG/DL 70-110 N Performed by cer tified kiln transfer operator at [facility] HGB [id number] 07:27:00* Test Item Value Reference Range Interpretation Comme nts HEMOGLOBIN (test code = HGB) 6.8 g/dL 12.5-16.9 L HEMATOCRIT (test code = HCT) 21.2 % 37.5-50.7 L - XR ABDOMEN 1V (KUB)2022-09-04 00:00:00 [facility] : 1965 Sex: MFAX: Mj Sierra [phone] [place]: St: ADM Name: KARMA ROWLAND [facility] : 1965 Age/S: 56/M [address] [place] [address] Unit #: [id number] Loc: [address] [address] Phys: Mj Vences MD Acct: [id number] Dis Date: Status: ADM IN PHONE #: [phone] Exam Date: 09/04/2022 1648FAX #: [phone] Reason: DISTENDED ABDOMEN EXAMS: CPT CODE: [id number] XR ABDOMEN 1V (KUB) 76169 PROCEDURE INFORMATION: Exam: XR Abdomen Exam date [...] S: 09/04/2022 (1756) PAGE 1 Signed ReportVANCOMYCIN [id number] 20:29:00* Test Item Value Reference Range Interpretation Comme nts VANCOMYCIN PEAK (test code = VANCP) 27.4 MCG/ML 30-40 L GLUCOSE [id number] 20:01:00* Test Item Value Reference Range Interpretation Comme nts GLUCOSE BEDSIDE (test code = GLUBED) 124 MG/DL 70-110 H Performed by cer tified kiln transfer operator at [facility] GLUCOSE [id number] 16:44:00* Test Item Value Reference Range Interpretation Comme nts GLUCOSE BEDSIDE (test code = GLUBED) 135 MG/DL 70-110 H Performed by cer tified kiln transfer operator at [facility] GLUCOSE [id number] 12:45:00* Test Item Value Reference Range Interpretation Comme nts GLUCOSE BEDSIDE (test code = GLUBED) 136 MG/DL 70-110 H Performed by cer tified kiln transfer operator at [facility] GLUCOSE [id number] 12:05:00* Test Item Value Reference Range Interpretation Comme nts GLUCOSE BEDSIDE (test code = GLUBED) 50 MG/DL 70-110 L Performed by [facility] tified kiln transfer operator at [facility] GLUCOSE [id number] 12:05:00* Test Item Value Reference Range Interpretation Comme nts GLUCOSE BEDSIDE (test code = GLUBED) 44 MG/DL 70-110 L Performed by [facility] tified kiln transfer operator at [facility] CBC W/AUTO [id number] 07:41:00* Test Item Value Reference Range Interpretation [...] c ode = MDIFF) NO COMPREHENSIVE METABOLIC [id number] 07:30:00* Test Item Value Reference Range Interpretation [...] code = ALKP) 93 IUnit/L 20-125 N [id number] 07:30:00* Test Item Value Reference Range Interpretation Comme nts MAGNESIUM (test code = MAG) 1.89 mg/dL 1.80-2.40 N [id number] 07:30:00* Test Item Value Reference Range Interpretation Comme nts PREALBUMIN (test code = PREALB) < 5.0 mg/dL 16.0-40.0 L GLUCOSE [id number] 05:35:00* Test Item Value Reference Range Interpretation Comme nts GLUCOSE BEDSIDE (test code = GLUBED) 88 MG/DL 70-110 N Performed by cer tified kiln transfer operator at [facility] GLUCOSE [id number] 19:45:00* Test Item Value Reference Range Interpretation Comme nts GLUCOSE BEDSIDE (test code = GLUBED) 210 MG/DL 70-110 H Performed by cer tified kiln transfer operator at [facility] GLUCOSE [id number] 19:45:00* Test Item Value Reference Range Interpretation Comme nts GLUCOSE BEDSIDE (test code = GLUBED) 159 MG/DL 70-110 H Performed by cer tified kiln transfer operator at [facility] GLUCOSE [id number] 17:45:00* Test Item Value Reference Range Interpretation Comme nts GLUCOSE BEDSIDE (test code = GLUBED) 102 MG/DL 70-110 N Performed by cer tified kiln transfer operator at [facility] GLUCOSE [id number] 16:23:00* Test Item Value Reference Range Interpretation Comme nts GLUCOSE BEDSIDE (test code = GLUBED) 97 MG/DL 70-110 N Performed by cer tified kiln transfer operator at [facility] GLUCOSE [id number] 15:40:00* Test Item Value Reference Range Interpretation Comme nts GLUCOSE BEDSIDE (test code = GLUBED) 257 MG/DL 70-110 H Performed by cer tified kiln transfer operator at [facility] GLUCOSE [id number] 11:00:00* Test Item Value Reference Range Interpretation Comme nts GLUCOSE BEDSIDE (test code = GLUBED) 162 MG/DL 70-110 H Performed by cer tified kiln transfer operator at [facility] GLUCOSE [id number] 10:22:00* Test Item Value Reference Range Interpretation Comme nts GLUCOSE BEDSIDE (test code = GLUBED) 62 MG/DL 70-110 L Performed by cer tified kiln transfer operator at [facility] GLUCOSE [id number] 10:20:00* Test Item Value Reference Range Interpretation Comme nts GLUCOSE BEDSIDE (test code = GLUBED) 63 MG/DL 70-110 L Performed by cer Side.Cr kiln transfer operator at [facility] GLUCOSE [id number] 06:41:00* Test Item Value Reference Range Interpretation Comme nts GLUCOSE BEDSIDE (test code = GLUBED) 77 MG/DL 70-110 N Performed by cer tified kiln transfer operator at [facility] BASIC METABOLIC [id number] 05:46:00* Test Item Value Reference Range Interpretation [...] = CA) 7.4 mg/dL 8.0-10.5 L GLUCOSE [id number] 19:54:00* Test Item Value Reference Range Interpretation Comme nts GLUCOSE BEDSIDE (test code = GLUBED) 91 MG/DL 70-110 N Performed by cer tified kiln transfer operator at [facility] GLUCOSE [id number] 17:17:00* Test Item Value Reference Range Interpretation Comme nts GLUCOSE BEDSIDE (test code = GLUBED) 127 MG/DL 70-110 H Performed by cer tified kiln transfer operator at [facility] [id number] 11:20:00* Test Item Value Reference Range Interpretation Comme nts SURGICAL (test code = SR) R UN DATE: 09/01/22 [facility] - LAB PAGE 1 RUN TIME: 1120 Specimen Inquiry RUN USER: INTERFACE P ATIENT: KARMA ROWLAND LOC: DONYA U #: [id number] AGE/SX: 56/M ROOM: [facility] RE08/18/22REG DR: Wilbert Ramires MD : [birth year] BED: 1 DIS: STATUS: ADM IN TLOC: SPEC #: [id number] RECD: 08/29/22 STATUS: JALILNavya REShanell #: [id number] JULIENNE: 08/28/22- SUBM DR: Nixon Leroy MD ENTERED: 08/29/22 SP TYPE: SURGICAL OTHR DR: No Primary or Family Physician Self Referred Anthony Curtis MD,Andrew Vences,Mj Du,DavidNixon Curran MD, MD, Kuldip K MD Patel,Liam Henley MD, DPMIn Hal ZEPEDAORDERED: [id number], ANATOMIC SPEC CODES: [id number] - LEG, NOS COPIES TO: No Primary or Family Phys[place] [address] [facility] [address] [place] [address] Andrew London MD [address] [place] [address] Mj Vences MD [address] [place] [address] David Du MD [address] [facility] [place] [address] [email or web address] [email or web address] CONTINUED ON NEXT PAGE R UN DATE: 09/01/22 [facility] - LAB PAGE 2 RUN TIME: 1120 Specimen Inquiry RUN USER: INTERFACE S PEC #: [id number] PATIENT: KARMA ROWLAND #[id number] (Continued) COPIES TO: (Continued) Nixon Leroy MD [address] [place] [address] Braxton Chapin MD [address] [facility] [address] [place] [address] Napoleon Parham MD [address] [facility], [address] [address] Liam Pedersen DPM 110[address] [facility] [address] [place] [address] [email or web address] Forrest Oswald MD [address] [place] [address] [address] [place], [place] [address] PROCEDURES: 17013 (08/29/22) TISSUES: LEG, NOS - RIGHT BELOW [...] dimension. The resection margins appear grossly viable. Fish Processor sections of the resection margins are submitted in cassette A. CONTINUED ON NEXT PAGE R UN DATE: 09/01/22 [facility] PAGE 3 RUN TIME: 1120 Specimen Inquiry RUN USER: INTERFACE S [facility] #: [id number] PATIENT: KARMA ROWLAND #[id number] (Continued) GROSS DESCRIPTION (Continued) Fish Processor sections of the gangrenous tissue are submitted in cassette B. Fish Processor sections of the vasculature are submitted in cassette C. Technical component performed at [facility],[address] [place] [address] Unless gross only, the diagnosis is based [...] Crane 09/01/22 1120 END OF REPORT GLUCOSE [id number] 11:15:00* Test Item Value Reference Range Interpretation Comme nts GLUCOSE BEDSIDE (test code = GLUBED) 118 MG/DL 70-110 H Performed by [facility] Side.Cr kiln transfer operator at [facility] COVID 19 Asymptomatic IH [id number] 09:45:00* Test Item Value Reference Range Interpretation [...] perform moderate, high or waivedcomplexity tests. GLUCOSE [id number] 07:16:00* Test Item Value Reference Range Interpretation Comme nts GLUCOSE BEDSIDE (test code = GLUBED) 145 MG/DL 70-110 H Performed by [facility] [employer] kiln transfer operator at [facility] CREATINE KINASE (CK)2022-09-01 05:19:00* Test Item Value Reference Range Interpretation Comme nts CREATINE KINASE (CK) (test c ode = CK) 79 Units/L 46-171 N GLUCOSE [id number] 19:34:00* Test Item Value Reference Range Interpretation Comme nts GLUCOSE BEDSIDE (test code = GLUBED) 176 MG/DL 70-110 H Performed by cer tified kiln transfer operator at [facility] HGB [id number] 18:22:00* Test Item Value Reference Range Interpretation Comme nts HEMOGLOBIN (test code = HGB) 9.1 g/dL 12.5-16.9 L HEMATOCRIT (test code = HCT) 28.2 % 37.5-50.7 L GLUCOSE [id number] 16:31:00* Test Item Value Reference Range Interpretation Comme nts GLUCOSE BEDSIDE (test code = GLUBED) 163 MG/DL 70-110 H Performed by cer tified kiln transfer operator at [facility] GLUCOSE [id number] 12:53:00* Test Item Value Reference Range Interpretation Comme nts GLUCOSE BEDSIDE (test code = GLUBED) 76 MG/DL 70-110 N Performed by cer tified kiln transfer operator at [facility] GLUCOSE [id number] 12:20:00* Test Item Value Reference Range Interpretation Comme nts GLUCOSE BEDSIDE (test code = GLUBED) 44 MG/DL 70-110 L Performed by cer tified kiln transfer operator at [facility] CBC W/AUTO [id number] 07:49:00* Test Item Value Reference Range Interpretation [...] c ode = MDIFF) NO BASIC METABOLIC [id number] 07:34:00* Test Item Value Reference Range Interpretation [...] = CA) 7.2 mg/dL 8.0-10.5 L GLUCOSE [id number] 07:31:00* Test Item Value Reference Range Interpretation Comme nts GLUCOSE BEDSIDE (test code = GLUBED) 110 MG/DL 70-110 N Performed by cer tified kiln transfer operator at [facility] GLUCOSE [id number] 20:49:00* Test Item Value Reference Range Interpretation Comme nts GLUCOSE BEDSIDE (test code = GLUBED) 140 MG/DL 70-110 H Performed by cer tified kiln transfer operator at [facility] GLUCOSE [id number] 17:11:00* Test Item Value Reference Range Interpretation Comme nts GLUCOSE BEDSIDE (test code = GLUBED) 109 MG/DL 70-110 N Performed by cer tified kiln transfer operator at [facility] GLUCOSE [id number] 12:35:00* Test Item Value Reference Range Interpretation Comme nts GLUCOSE BEDSIDE (test code = GLUBED) 81 MG/DL 70-110 N Performed by cer tified kiln transfer operator at [facility] GLUCOSE [id number] 08:38:00* Test Item Value Reference Range Interpretation Comme nts GLUCOSE BEDSIDE (test code = GLUBED) 83 MG/DL 70-110 N Performed by cer tified kiln transfer operator at [facility] BASIC METABOLIC [id number] 06:17:00* Test Item Value Reference Range Interpretation [...] code = CA) 7.3 mg/dL 8.0-10.5 L [id number] 06:17:00* Test Item Value Reference Range Interpretation Comme nts PHOSPHOROUS (test code = PHOS) 4.6 MG/DL 2.5-4.9 N [id number] 06:17:00* Test Item Value Reference Range Interpretation Comme nts MAGNESIUM (test code = MAG) 2.01 mg/dL 1.80-2.40 N CBC W/AUTO [id number] 06:07:00* Test Item Value Reference Range Interpretation [...] (test c ode = MDIFF) NO GLUCOSE [id number] 20:22:00* Test Item Value Reference Range Interpretation Comme nts GLUCOSE BEDSIDE (test code = GLUBED) 81 MG/DL 70-110 N Performed by cer tified kiln transfer operator at [facility] GLUCOSE [id number] 17:07:00* Test Item Value Reference Range Interpretation Comme nts GLUCOSE BEDSIDE (test code = GLUBED) 157 MG/DL 70-110 H Performed by cer tified kiln transfer operator at [facility] [id number] 11:37:00* Test Item Value Reference Range Interpretation Comme nts PREALBUMIN (test code = PREALB) < 5.0 mg/dL 16.0-40.0 L GLUCOSE [id number] 10:52:00* Test Item Value Reference Range Interpretation Comme nts GLUCOSE BEDSIDE (test code = GLUBED) 105 MG/DL 70-110 N Performed by cer tified kiln transfer operator at [facility] GLUCOSE [id number] 09:23:00* Test Item Value Reference Range Interpretation Comme nts GLUCOSE BEDSIDE (test code = GLUBED) 70 MG/DL 70-110 N Performed by cer tified kiln transfer operator at [facility] GLUCOSE [id number] 08:54:00* Test Item Value Reference Range Interpretation Comme nts GLUCOSE BEDSIDE (test code = GLUBED) 70 MG/DL 70-110 N Performed by cer tified kiln transfer operator at [facility] BASIC METABOLIC [id number] 06:45:00* Test Item Value Reference Range Interpretation [...] code = CA) 7.2 mg/dL 8.0-10.5 L [id number] 06:45:00* Test Item Value Reference Range Interpretation Comme [facility] PHOSPHOROUS (test code = PHOS) 5.2 MG/DL 2.5-4.9 H [id number] 06:45:00* Test Item Value Reference Range Interpretation Comme nts MAGNESIUM (test code = MAG) 1.91 mg/dL 1.80-2.40 N CBC W/AUTO [id number] 05:47:00* Test Item Value Reference Range Interpretation [...] REQUIRED (test code = MDIFF) NO GLUCOSE [id number] 20:27:00* Test Item Value Reference Range Interpretation Comme [facility] GLUCOSE BEDSIDE (test code = GLUBED) 145 MG/DL 70-110 H Performed by [employer] kiln transfer operator at [facility] GLUCOSE [id number] 17:21:00* Test Item Value Reference Range Interpretation Comme [facility] GLUCOSE BEDSIDE (test code = GLUBED) 103 MG/DL 70-110 N Performed by cer tified kiln transfer operator at [facility] [id number] 13:39:00* Test Item Value Reference Range Interpretation Comme [facility] SURGICAL (test code = SR) R UN DATE: 08/28/22 [facility] - LAB PAGE 1 RUN TIME: 1339 Specimen Inquiry RUN USER: INTERFACE P ATIENT: KARMA ROWLAND LOC: [facility] U #: [id number] AGE/SX: 56/M ROOM: [facility] RE08/18/22REG DR: Wilbert Ramires MD : 61 BED: 1 DIS: STATUS: ADM IN TLOC: SPEC #: [id number] RECD: 08/27/22 STATUS: JC RE #: [id number] JULIENNE: 08/26/22- SUBM DR: David Du MD ENTERED: 08/27/22-1017 SP TYPE: SURGICAL OTHR DR: No Primary or Family Physician Self Referred Anthony Curtis MD, Brent J MD Hackney, Jeromy T MD Juarez, Jesus MD Kaul, Kuldip K MD Patel,Liam Henley MD DPM DarekIn S MDORDERED: [id number], ANATOMIC SPEC COPIES TO: No Primary or Family [place] [address] [facility] [address] [place], [place] [id number] Andrew London MD [address] [place] [address] David Du MD [address] [facility] [place] [address] Nixon Leroy MD [address] [place], [place] [id number] Braxton Chapin MD [address] [facility] [address] [place] [address] CONTINUED ON NEXT PAGE R UN DATE: 08/28/22 [facility] - LAB PAGE 2 RUN TIME: 1339 Specimen Inquiry RUN USER: INTERFACE S GLENROY #: [id number] PATIENT: KARMA ROWLAND #[id number] (Continued) COPIES TO: (Continued) Napoleon Parham MD [address] [facility], [address] [place], [place] [address] Liam Pedersen DPM [address] [phone] [email or web address] Forrest Oswald MD [address] [place] [address] [address] [place] [address] PROCEDURES: [id number] (08/27/22-1017) TISSUES: A. CHIPS - PROSTATE TURP CLINICAL HISTORY SAME FINAL DIAGNOSIS Prostate chips, submitted: Fragments of fibromuscular tissue with abundant acute andchronic inflammation and some necrotic debris; background benign appearing prostate tissue. GROSS DESCRIPTION Received in formalin labeled prostate chips multiple yellow-bajwa tissue fragments weighing1.5 g and measuring 2 cm in aggregate submitted (A)-(B). Technical component performed at [facility],[address] [place] [address], [place] [address] Unless gross only, the diagnosis is based [...] ON NEXT PAGE R UN DATE: 08/28/22 [facility] - LAB PAGE 3 RUN TIME: 1339 Specimen Inquiry RUN USER: INTERFACE S GLENROY #: [id number] PATIENT: KARMA ROWLAND #[id number] (Continued) CLINICAL INFORMATION PROSTATE ABSCESS ------ Signed SIGNATURE ON Wilfrid Emerson 08/28/22 1339 END OF REPORT GLUCOSE [id number] 13:14:00* Test Item Value Reference Range Interpretation Comme [facility] GLUCOSE BEDSIDE (test code = GLUBED) 206 MG/DL 70-110 H Performed by [employer] kiln transfer operator at [facility] GLUCOSE [id number] 12:29:00* Test Item Value Reference Range Interpretation Comme [facility] GLUCOSE BEDSIDE (test code = GLUBED) 185 MG/DL 70-110 H Performed by [employer] kiln transfer operator at [facility] GLUCOSE [id number] 06:34:00* Test Item Value Reference Range Interpretation Comme [facility] GLUCOSE BEDSIDE (test code = GLUBED) 180 MG/DL 70-110 H Performed by [facility] [employer] kiln transfer operator at [facility] COMPREHENSIVE METABOLIC [id number] 05:30:00* Test Item Value Reference Range Interpretation Comme [facility] SODIUM (test code = NA) 137 [...] code = ALKP) 111 IUnit/L 20-125 N [id number] 05:30:00* Test Item Value Reference Range Interpretation Comme nts PHOSPHOROUS (test code = PHOS) 4.8 MG/DL 2.5-4.9 N [id number] 05:30:00* Test Item Value Reference Range Interpretation Comme nts MAGNESIUM (test code = MAG) 1.89 mg/dL 1.80-2.40 N CALCIUM [id number] 05:30:00* Test Item Value Reference Range Interpretation Comme nts CALCIUM IONIZED (test code = KARLA) 1.12 MMOL/L 1.09-1.30 N CBC W/AUTO [id number] 04:46:00* Test Item Value Reference Range Interpretation [...] = MDIFF) NO - XR FLUOROSCOPY 0-60 [id number] 00:00:00 [facility] 1965 Sex: MFAX: Wilbert Krause MD [phone] [place]: St: ADM Name: ROWLAND,KARMA [facility] : 1965 Age/S: 56/M [address] [place] [address] Unit #: [id number] Loc: G.[address] [place] [address] Phys: Wilbert Ramires [facility] [id number] Dis Date: Status: ADM IN PHONE #: [phone] Exam Date: 08/28/2022 1101 FAX #: [phone] Reason: RIGHT TIBFIB AMP EXAMS: CPT CODE: [id number] XR FLUOROSCOPY 0-60 MIN 34036 PROCEDURE INFORMATION: Exam: FL Fluoroscopy, Up to 1 Hour Physician Time; Radiologist Not Present For Fluoroscopy Exam date and time: 08/28/2022 10:51 AM Age: 56 years old Clinical indication: Pain; Pain:Or; Additional info: Right tibfib amp TECHNIQUE: Imaging protocol: Fluoroscopy , up to 1 hour physician or other qualified health patient care secretary time. This radiologist did not supervise this [...] operating physician. Please refer to the procedure reportfor further details. Notes: Fluoroscopy supervised by facility personnel. See also separate procedure report. IMPRESSION: Fluoroscopy dosage documentation. See also separate procedure notes. at 1120 Reported and signed by:Bishop Atkins M.D. CC: Wilbert Ramires MD Technologist: RT Kylie(Avinash) Trnscrd Date/Time/By: 08/28/2022 (1119) : By: [email or web address] Orig Print D/T: S: 08/28/2022 (1119) PAGE 1 Signed Report- [facility] [id number] 00:00:00 [facility] : 1965 Sex: MName: KARMA ROWLAND [facility] : 1965 Age/S: 56 / M [address] [place] [address] Unit #: [id number] Loc: [place] [address] Phys: Wilbert Ramires MD Acct: [id number] Dis Date: Status: ADM IN PHONE #: [phone] Exam Date: 08/28/2022 0857 FAX #: [phone] Reason: Left leg swelling EXAMS: CPT CODE: [id number] DUP VEIN UNI/LTD 15930 PROCEDURE INFORMATION: Exam: US Duplex Left LowerExtremity [...] femoral, femoral, proximal profunda femoral and popliteal veinsare patent without thrombus. Normal Doppler waveforms. Normal compressibility and/or augmentation response. Left superficial veins: Unremarkable. Saphenofemoral junction is patent without thrombus. Soft tissues: Approximately 8 x 2 x 1.3 cm complex fluid collection along the left upper calf probably representing a small hematoma. No other soft tissue abnormalities are seen. IMPRESSION: 1. No evide nce of venous thrombosis involving left lower extremity. 2. Approximately 8 x 2 x 1.3 cm complex fluid collection along the left upper calf probably representing a small hematoma. at 0927 Reported and signed by: Roger Parra M.D. CC: Wilbert Ramires MD Technologist: Dave Gaines Trnscb Date/Time: 08/28/2022 (926) Dilip.RG17 Orig Print D/T: S: 08/28/2022 (926) Probe: PAGE 1 Signed ReportGLUCOSE [id number] 21:01:00* Test Item Value Reference Range Interpretation Comme nts GLUCOSE BEDSIDE (test code = GLUBED) 87 MG/DL 70-110 N Performed by ruel hameed kiln transfer operator at [facility] BASIC METABOLIC [id number] 19:03:00* Test Item Value Reference Range Interpretation [...] = CA) 7.5 mg/dL 8.0-10.5 L GLUCOSE [id number] 17:42:00* Test Item Value Reference Range Interpretation Comme [facility] GLUCOSE BEDSIDE (test code = GLUBED) 148 MG/DL 70-110 H Performed by cer tified kiln transfer operator at [facility] GLUCOSE [id number] 14:51:00* Test Item Value Reference Range Interpretation Comme [facility] GLUCOSE BEDSIDE (test code = GLUBED) 244 MG/DL 70-110 H Performed by cer tified kiln transfer operator at [facility] GLUCOSE [id number] 08:35:00* Test Item Value Reference Range Interpretation Comme [facility] GLUCOSE BEDSIDE (test code = GLUBED) 294 MG/DL 70-110 H Performed by [employer] kiln transfer operator at [facility] COMPREHENSIVE METABOLIC [id number] 06:21:00* Test Item Value Reference Range Interpretation [...] 111 IUnit/L 20-125 N . Recollection is necessary.[id number] 06:21:00* Test Item Value Reference Range Interpretation Comme nts PHOSPHOROUS (test code = PHOS) 5.4 MG/DL 2.5-4.9 H . Recollection is necessary.[id number] 06:21:00* Test Item Value Reference Range Interpretation Comme nts MAGNESIUM (test code = MAG) 1.94 mg/dL 1.80-2.40 N . Recollection is necessary.COMPREHENSIVE METABOLIC [id number] 04:43:00* Test Item Value Reference Range Interpretation [...] ( test code = ALKP) IUnit/L 20-125 [id number] 04:43:00* Test Item Value Reference Range Interpretation Comme nts PHOSPHOROUS (test code = PHOS) MG/DL 2.5-4.9 [id number] 04:43:00* Test Item Value Reference Range Interpretation Comme nts MAGNESIUM (test code = MAG) mg/dL 1.80-2.40 CALCIUM [id number] 04:43:00* Test Item Value Reference Range Interpretation Comme nts CALCIUM IONIZED (test code = KARLA) 1.08 MMOL/L 1.09-1.30 L CBC W/AUTO [id number] 04:43:00* Test Item Value Reference Range Interpretation [...] REQUIRED (test code = MDIFF) NO GLUCOSE [id number] 00:32:00* Test Item Value Reference Range Interpretation Comme nts GLUCOSE BEDSIDE (test code = GLUBED) 166 MG/DL 70-110 H Performed by cer tified kiln transfer operator at [facility] GLUCOSE [id number] 20:52:00* Test Item Value Reference Range Interpretation Comme nts GLUCOSE BEDSIDE (test code = GLUBED) 148 MG/DL 70-110 H Performed by cer tified kiln transfer operator at [facility] GLUCOSE [id number] 17:53:00* Test Item Value Reference Range Interpretation Comme nts GLUCOSE BEDSIDE (test code = GLUBED) 169 MG/DL 70-110 H Performed by cer tified kiln transfer operator at [facility] GLUCOSE [id number] 09:17:00* Test Item Value Reference Range Interpretation Comme nts GLUCOSE BEDSIDE (test code = GLUBED) 163 MG/DL 70-110 H Performed by [facility] tified kiln transfer operator at [facility] COMPREHENSIVE METABOLIC [id number] 06:16:00* Test Item Value Reference Range Interpretation [...] code = ALKP) 149 IUnit/L 20-125 H [id number] 06:16:00* Test Item Value Reference Range Interpretation Comme nts PHOSPHOROUS (test code = PHOS) 4.6 MG/DL 2.5-4.9 N [id number] 06:16:00* Test Item Value Reference Range Interpretation Comme nts MAGNESIUM (test code = MAG) 1.89 mg/dL 1.80-2.40 N CALCIUM [id number] 06:16:00* Test Item Value Reference Range Interpretation Comme nts CALCIUM IONIZED (test code = KARLA) 1.11 MMOL/L 1.09-1.30 N CBC W/AUTO [id number] 05:58:00* Test Item Value Reference Range Interpretation [...] REQUIRED (test code = MDIFF) NO GLUCOSE [id number] 20:19:00* Test Item Value Reference Range Interpretation Comme nts GLUCOSE BEDSIDE (test code = GLUBED) 113 MG/DL 70-110 H Performed by cer tified kiln transfer operator at [facility] GLUCOSE [id number] 17:34:00* Test Item Value Reference Range Interpretation Comme nts GLUCOSE BEDSIDE (test code = GLUBED) 132 MG/DL 70-110 H Performed by cer tified kiln transfer operator at [facility] UA RFLX MICR CULT IF [id number] 11:42:00* Test Item Value Reference Range Interpretation [...] ode = CK) 17 Units/L 46-171 L [id number] 11:39:00* Test Item Value Reference Range Interpretation Comme nts POTASSIUM (test code = K) 4.5 mEq/L 3.4-5.0 N GLUCOSE [id number] 11:22:00* Test Item Value Reference Range Interpretation Comme nts GLUCOSE BEDSIDE (test code = GLUBED) 143 MG/DL 70-110 H Performed by cer tified kiln transfer operator at [facility] COMPREHENSIVE METABOLIC [id number] 08:57:00* Test Item Value Reference Range Interpretation [...] code = ALKP) 159 IUnit/L 20-125 H [id number] 08:57:00* Test Item Value Reference Range Interpretation Comme nts PHOSPHOROUS (test code = PHOS) 4.5 MG/DL 2.5-4.9 N [id number] 08:57:00* Test Item Value Reference Range Interpretation Comme nts MAGNESIUM (test code = MAG) 1.88 mg/dL 1.80-2.40 N CALCIUM [id number] 08:57:00* Test Item Value Reference Range Interpretation Comme nts CALCIUM IONIZED (test code = KARLA) 0.96 MMOL/L 1.09-1.30 L CBC W/AUTO [id number] 08:25:00* Test Item Value Reference Range Interpretation [...] REQUIRED (test code = MDIFF) NO GLUCOSE [id number] 07:56:00* Test Item Value Reference Range Interpretation Comme nts GLUCOSE BEDSIDE (test code = GLUBED) 166 MG/DL 70-110 H Performed by cer tified kiln transfer operator at [facility] GLUCOSE [id number] 21:55:00* Test Item Value Reference Range Interpretation Comme nts GLUCOSE BEDSIDE (test code = GLUBED) 140 MG/DL 70-110 H Performed by cer tified kiln transfer operator at [facility] GLUCOSE [id number] 17:59:00* Test Item Value Reference Range Interpretation Comme nts GLUCOSE BEDSIDE (test code = GLUBED) 136 MG/DL 70-110 H Performed by cer tified kiln transfer operator at [facility] [id number] 17:29:00* Test Item Value Reference Range Interpretation Comme nts VANCOMYCIN (test code = VANCO) 9.6 mcg/mL GLUCOSE [id number] 12:11:00* Test Item Value Reference Range Interpretation Comme nts GLUCOSE BEDSIDE (test code = GLUBED) 129 MG/DL 70-110 H Performed by cer tified kiln transfer operator at [facility] GLUCOSE [id number] 08:28:00* Test Item Value Reference Range Interpretation Comme nts GLUCOSE BEDSIDE (test code = GLUBED) 195 MG/DL 70-110 H Performed by [employer] kiln transfer operator at [facility] CBC W/AUTO [id number] 07:32:00* Test Item Value Reference Range Interpretation [...] (test code = MDIFF) NO COMPREHENSIVE METABOLIC [id number] 07:09:00* Test Item Value Reference Range Interpretation [...] code = ALKP) 176 IUnit/L 20-125 H [id number] 07:09:00* Test Item Value Reference Range Interpretation Comme nts PHOSPHOROUS (test code = PHOS) 4.1 MG/DL 2.5-4.9 N [id number] 07:09:00* Test Item Value Reference Range Interpretation Comme nts MAGNESIUM (test code = MAG) 1.80 mg/dL 1.80-2.40 N CALCIUM [id number] 07:09:00* Test Item Value Reference Range Interpretation Comme nts CALCIUM IONIZED (test code = KARLA) 1.09 MMOL/L 1.09-1.30 N GLUCOSE [id number] 03:18:00* Test Item Value Reference Range Interpretation Comme nts GLUCOSE BEDSIDE (test code = GLUBED) 189 MG/DL 70-110 H Performed by cer tified kiln transfer operator at [facility] GLUCOSE [id number] 21:11:00* Test Item Value Reference Range Interpretation Comme nts GLUCOSE BEDSIDE (test code = GLUBED) 161 MG/DL 70-110 H Performed by cer tified kiln transfer operator at [facility] GLUCOSE [id number] 19:43:00* Test Item Value Reference Range Interpretation Comme nts GLUCOSE BEDSIDE (test code = GLUBED) 146 MG/DL 70-110 H Performed by cer tified kiln transfer operator at [facility] GLUCOSE [id number] 16:31:00* Test Item Value Reference Range Interpretation Comme nts GLUCOSE BEDSIDE (test code = GLUBED) 126 MG/DL 70-110 H Performed by cer tified kiln transfer operator at [facility] GLUCOSE [id number] 13:36:00* Test Item Value Reference Range Interpretation Comme nts GLUCOSE BEDSIDE (test code = GLUBED) 102 MG/DL 70-110 N Performed by cer tified kiln transfer operator at [facility] GLUCOSE [id number] 12:40:00* Test Item Value Reference Range Interpretation Comme nts GLUCOSE BEDSIDE (test code = GLUBED) 67 MG/DL 70-110 L Performed by [facility] [employer] kiln transfer operator at [facility] CBC W/AUTO [id number] 11:30:00* Test Item Value Reference Range Interpretation [...] (test c ode = MDIFF) YES WBC [id number] 11:30:00* Test Item Value Reference Range Interpretation [...] POLYCHROMASIA (test code = POLC) 1+ GLUCOSE [id number] 08:23:00* Test Item Value Reference Range Interpretation Comme nts GLUCOSE BEDSIDE (test code = GLUBED) 120 MG/DL 70-110 H Performed by cer [employer] kiln transfer operator at [facility] COMPREHENSIVE METABOLIC [id number] 03:59:00* Test Item Value Reference Range Interpretation [...] code = ALKP) 163 IUnit/L 20-125 H [id number] 03:59:00* Test Item Value Reference Range Interpretation Comme nts PHOSPHOROUS (test code = PHOS) 4.7 MG/DL 2.5-4.9 [id number] 03:59:00* Test Item Value Reference Range Interpretation Comme nts MAGNESIUM (test code = MAG) 1.71 mg/dL 1.80-2.40 L CALCIUM [id number] 03:59:00* Test Item Value Reference Range Interpretation Comme nts CALCIUM IONIZED (test code = KARLA) 1.06 MMOL/L 1.09-1.30 L [id number] 03:54:00* Test Item Value Reference Range Interpretation Comme nts VANCOMYCIN (test code = VANCO) 15.3 mcg/mL GLUCOSE [id number] 19:53:00* Test Item Value Reference Range Interpretation Comme nts GLUCOSE BEDSIDE (test code = GLUBED) 163 MG/DL 70-110 H Performed by [employer] kiln transfer operator at [facility] GLUCOSE [id number] 16:45:00* Test Item Value Reference Range Interpretation Comme nts GLUCOSE BEDSIDE (test code = GLUBED) 146 MG/DL 70-110 H Performed by cer [employer] kiln transfer operator at [facility] GLUCOSE [id number] 11:58:00* Test Item Value Reference Range Interpretation Comme nts GLUCOSE BEDSIDE (test code = GLUBED) 92 MG/DL 70-110 N Performed by [employer] kiln transfer operator at [facility] [id number] 09:36:00* Test Item Value Reference Range Interpretation Comme nts VANCOMYCIN (test code = VANCO) 19.7 mcg/mL GLUCOSE [id number] 07:58:00* Test Item Value Reference Range Interpretation Comme nts GLUCOSE BEDSIDE (test code = GLUBED) 76 MG/DL 70-110 N Performed by [employer] kiln transfer operator at [facility] CBC W/AUTO [id number] 06:22:00* Test Item Value Reference Range Interpretation [...] 0.00 x10 3/uL 0.0-0.1 N COMPREHENSIVE METABOLIC [id number] 06:10:00* Test Item Value Reference Range Interpretation [...] code = ALKP) 171 IUnit/L 20-125 H [id number] 06:10:00* Test Item Value Reference Range Interpretation Comme nts PHOSPHOROUS (test code = PHOS) 3.4 MG/DL 2.5-4.9 [id number] 06:10:00* Test Item Value Reference Range Interpretation Comme nts MAGNESIUM (test code = MAG) 1.70 mg/dL 1.80-2.40 L CALCIUM [id number] 06:10:00* Test Item Value Reference Range Interpretation Comme nts CALCIUM IONIZED (test code = KARLA) 1.00 MMOL/L 1.09-1.30 L - MRI PELVIS W/O [id number] 00:00:00 [facility] : 1965 Sex: MFAX: Wilbert Krause MD [phone] [place]: St: ADM FAX: David Colvin MD [phone] --- Name: BEATA ROWLANDOHEDUARDO Rossiter : 1965 Age/S: 56/M [address] [place] [address] Unit #: [id number] Loc: G.[address] [place] [address] Phys: David Du MD Acct: [id number] Dis Date: Status: ADM IN PHONE #: [phone] Exam Date: 08/21/20222115 FAX #: [phone] Reason: assess for prostate abscess vs lesion EXAMS: CPT CODE: [id number] MRI PELVIS W/O CON 12820 PROCEDURE INFORMATION: Exam: MR Pelvis Without Contrast Exam date and time: 08/18/2022 8:32 PM Age: 56 years old Clinical indication: Other: Assess for prostate abscess vs lesion TECHNIQUE: Imaging protocol: Magnetic resonance imaging of the pelvis without contrast. COMPARISON: CT ABD PELVIS W/CONT 08/18/2022 3:36 AM FINDINGS: Intraperitoneal space: Examination is severely degraded by abdominal breathing and patient motion artifact, severelylowering sensitivity and specificity of the study. No free pelvic fluid. Urinary bladder: No bladder filling defects or diverticula. Reproductive: Approximately 4.7 x 3.6 x 2.7 cm lobulated focus of liquefaction is identified centered at the level of the left seminal vesicle, corresponding to the area of hypodensity detected by CT. Diffusion sequences could not be obtained due to motion limitingsensitivity. Mild T2 hyperintense surrounding soft tissue edema [...] area of liquefaction in the left seminal vesiclesuspicious for abscess, inseparable from the left posterolateral prostate capsule and peripheral zone. Recommend MR follow-up after antibiotic therapy to assess for evolution. 3. Normal size prostatewith otherwise preserved transitional zone and right peripheral zone signal. 4. No pelvic adenopathy or free fluid. 5. Unremarkable bladder. PAGE 1 Signed Report (CONTINUED) FAX: Wilbert Krause MD [phone] [place]: St: [facility] FAX: David Colvin MD [phone] Name: KARMA ROWLAND [facility] : 1965 Age/S: 56/M [address] [place] [address] Blvd Unit #: [id number] Loc: [facility] [place] [address] Phys: David Du MD Acct: [id number] Dis Date: Status: ADM IN PHONE #: [phone] Exam Date: 08/21 FAX #: [phone] Reason: assess for prostate abscess vs lesion EXAMS: CPT CODE: [id number] MRI PELVIS W/O CON 44950 (Continued) at 0830 Reported and signed by: Cezar Wakefield M.D. CC: Wilbetr Ramires MD; David Du MD Technologist: RT Haile(R)(CT) Trnscrd Date/Time/By: 08/22/2022 (829) : By: TipERR2 Orig Print D/T: S: 08/22/2022 (829) PAGE 2 Signed ReportVANCOMYCIN [id number] 21:01:00* Test Item Value Reference Range Interpretation [...] GLUBED) 112 MG/DL 70-110 H Performed by ruel hameed kiln transfer operator at [facility] GLUCOSE [id number] 16:36:00* Test Item Value Reference Range Interpretation Comme nts GLUCOSE BEDSIDE (test code = GLUBED) 104 MG/DL 70-110 N Performed by cer tified kiln transfer operator at [facility] GLUCOSE [id number] 14:51:00* Test Item Value Reference Range Interpretation Comme nts GLUCOSE BEDSIDE (test code = GLUBED) > 600 MG/DL 70-110 H Performed b y certified kiln transfer operator at [facility] VANCOMYCIN [id number] 13:52:00* Test Item Value Reference Range Interpretation Comme nts VANCOMYCIN PEAK (test code = VANCP) 30.7 MCG/ML 30-40 N GLUCOSE [id number] 12:23:00* Test Item Value Reference Range Interpretation Comme nts GLUCOSE BEDSIDE (test code = GLUBED) 597 MG/DL 70-110 H Performed by cer tified kiln transfer operator at [facility] GLUCOSE [id number] 11:20:00* Test Item Value Reference Range Interpretation Comme nts GLUCOSE BEDSIDE (test code = GLUBED) 96 MG/DL 70-110 N Performed by cer tified kiln transfer operator at [facility] GLUCOSE [id number] 08:13:00* Test Item Value Reference Range Interpretation Comme nts GLUCOSE BEDSIDE (test code = GLUBED) 123 MG/DL 70-110 H Performed by cer tified kiln transfer operator at [facility] CBC W/AUTO [id number] 06:04:00* Test Item Value Reference Range Interpretation [...] (test c ode = MDIFF) YES WBC [id number] 06:04:00* Test Item Value Reference Range Interpretation [...] code = PLTMORPH) LARGE PLATELETS COMPREHENSIVE METABOLIC [id number] 05:23:00* Test Item Value Reference Range Interpretation [...] code = ALKP) 172 IUnit/L 20-125 H [id number] 05:23:00* Test Item Value Reference Range Interpretation Comme nts PHOSPHOROUS (test code = PHOS) 2.6 MG/DL 2.5-4.9 N [id number] 05:23:00* Test Item Value Reference Range Interpretation Comme nts MAGNESIUM (test code = MAG) 1.65 mg/dL 1.80-2.40 L CALCIUM [id number] 05:23:00* Test Item Value Reference Range Interpretation Comme nts CALCIUM IONIZED (test code = KARLA) 1.02 MMOL/L 1.09-1.30 L - MRI LOW EXT W/O CONT [id number] 00:00:00 [facility] : 1965 Sex: MFAX: Wilbert Krause MD [phone] [place]: St: ADM FAX: Andrew London MD Name: KARMA ROWLAND [facility] : 1965 Age/S: 56/M [address] [place] [address] Unit #: [id number] Loc: G.M[address] [place], [place] [address]Blkg: Andrew London MD Acct: [id number] Dis Date: Status: ADM IN PHONE #: [phone] Exam Date: 08/21/20222115 FAX #: [phone] Reason: osteomyelitis EXAMS: CPT CODE: [id number] MRI LOW EXT W/[place] [address] PROCEDURE INFORMATION: Exam: MR Right Lower Extremity [...] ulceration along the medial and lateral soft tissuesof the hindfoot are seen. Multifocal geographic areas of hypointense T1/hyperintense STIR marrow sig nal abnormality throughout the calcaneus, talus, and navicular bone are seen. No discrete osseous erosion is noted. Os trigonum is noted. 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 Synovitis throughout the sinus tarsi is seen. The Achilles tendon and plantar fascia are intact. Themedial flexor, lateral, and anterior tendons about the [...] 9.7 x 1.7 cm is seen. Impression: 1.Large areas of deep ulceration of the medial and lateral soft tissues of the hindfoot. 2. Findings c ompatible with osteomyelitis of the talus, calcaneus, and navicular bone. 3. Lobulated, ill-defined3.2 x 9.7 x 1.7 cm fluid collection in the plantar musculature of the foot. 4. 1.2 x 1.9 x 0.6 cm dorsal skin blister of the forefoot. at 1358 Reported and signed by: Abel Austin M.D. PAGE 1 Signed Report (CONTINUED) FAX: Wilbert Krause MD [phone] [place]: St: ADM FAX: Andrew London MD Name: KARMA ROWLAND [facility] : 1965 Age/S: 56/M [address] [place] [address] Bl Unit #: [id number] Loc: G.M[address] [place] [address] Phys: Andrew London MD Acct: [id number] Dis Date: Status: ADM IN PHONE #: [phone] Exam Date: 08/21/20222115 FAX#: [phone] Reason: osteomyelitis EXAMS: CPT CODE: [id number] MRI [place]OW EXT W/[place] [address] (Continued) CC: Wilbert Ramires MD; Andrew London MD Technologist: Guero Hernandez, RT(R)(CT) Trnscrd Date/Time/By: 08/21/2022 (4473) : By: Hola Orig Print D/T: S: 08/21/2022 (5039) PAGE 2 Signed ReportVANCOMYCIN [id number] 23:25:00* Test Item Value Reference Range Interpretation Comme nts VANCOMYCIN PEAK (test code = VANCP) 36.0 MCG/ML 30-40 N COMMENTS: Please draw one hour AFTER THE END of vancomycin infusionGLUCOSE [id number] 21:23:00* Test Item Value Reference Range Interpretation Comme nts GLUCOSE BEDSIDE (test code = GLUBED) 123 MG/DL 70-110 H Performed by cer tified kiln transfer operator at [facility] GLUCOSE [id number] 16:48:00* Test Item Value Reference Range Interpretation Comme nts GLUCOSE BEDSIDE (test code = GLUBED) 201 MG/DL 70-110 H Performed by cer tified kiln transfer operator at [facility] [id number] 14:38:00* Test Item Value Reference Range Interpretation Comme nts MAGNESIUM (test code = MAG) 2.05 mg/dL 1.80-2.40 N CALCIUM [id number] 14:38:00* Test Item Value Reference Range Interpretation Comme nts CALCIUM IONIZED (test code = KARLA) 1.04 MMOL/L 1.09-1.30 L COMPREHENSIVE METABOLIC [id number] 14:38:00* Test Item Value Reference Range Interpretation [...] code = ALKP) 178 IUnit/L 20-125 H [id number] 14:38:00* Test Item Value Reference Range Interpretation Comme nts PHOSPHOROUS (test code = PHOS) 3.4 MG/DL 2.5-4.9 N GLUCOSE [id number] 11:18:00* Test Item Value Reference Range Interpretation Comme nts GLUCOSE BEDSIDE (test code = GLUBED) 173 MG/DL 70-110 H Performed by cer tified kiln transfer operator at [facility] CBC W/AUTO [id number] 11:03:00* Test Item Value Reference Range Interpretation [...] NRBC#) 0.00 x10 3/uL 0.0-0.1 N GLUCOSE [id number] 08:10:00* Test Item Value Reference Range Interpretation Comme nts GLUCOSE BEDSIDE (test code = GLUBED) 192 MG/DL 70-110 H Performed by cer tified kiln transfer operator at [facility] GLUCOSE [id number] 08:10:00* Test Item Value Reference Range Interpretation Comme nts GLUCOSE BEDSIDE (test code = GLUBED) 206 MG/DL 70-110 H Performed by cer tified kiln transfer operator at [facility] GLUCOSE [id number] 06:40:00* Test Item Value Reference Range Interpretation Comme nts GLUCOSE BEDSIDE (test code = GLUBED) 198 MG/DL 70-110 H Performed by cer tified kiln transfer operator at [facility] GLUCOSE [id number] 03:14:00* Test Item Value Reference Range Interpretation Comme nts GLUCOSE BEDSIDE (test code = GLUBED) 195 MG/DL 70-110 H Performed by cer tified kiln transfer operator at [facility] GLUCOSE [id number] 03:14:00* Test Item Value Reference Range Interpretation Comme nts GLUCOSE BEDSIDE (test code = GLUBED) 181 MG/DL 70-110 H Performed by cer tified kiln transfer operator at [facility] GLUCOSE [id number] 03:14:00* Test Item Value Reference Range Interpretation Comme nts GLUCOSE BEDSIDE (test code = GLUBED) 182 MG/DL 70-110 H Performed by cer tified kiln transfer operator at [facility] GLUCOSE [id number] 03:14:00* Test Item Value Reference Range Interpretation Comme nts GLUCOSE BEDSIDE (test code = GLUBED) 191 MG/DL 70-110 H Performed by cer tified kiln transfer operator at [facility] PSA TOTAL/[id number] 03:08:00* Test Item Value Reference Range Interpretation Comme nts PSA FREE (test code = PSAF) 0.04 ng/mL N/A Bassem ECLIA meth odology. PSA TOTAL (test code = PSAT) 0.9 ng/mL 0.0-4.0 Bassem ECLIA methodology.According to the [employer], Serum PSAshould decrease and remain [...] for any other population of men.Performed At: [facility] [address] [id number] Savage Castro MD Ph:[phone] [Automated message] The system which generated this result transmitted reference range: (). The reference range was not used to interpret this result as normal/abnormal. RENAL FUNCTION [id number] 01:04:00* Test Item Value Reference Range Interpretation [...] gap </= 12 mEq/L, then every morning [id number] 01:04:00* Test Item Value Reference Range Interpretation Comme nts MAGNESIUM (test code = MAG) 2.09 mg/dL 1.80-2.40 N COMMENTS: Every 6 hours until anion gap </= 12 mEq/L, then every morningHGB HCT 2022-08-19 23:52:00* Test Item Value Reference Range Interpretation Comme nts HEMOGLOBIN (test code = HGB) 7.0 g/dL 12.5-16.9 L HEMATOCRIT (test code = HCT) 21.8 % 37.5-50.7 L GLUCOSE [id number] 23:02:00* Test Item Value Reference Range Interpretation Comme nts GLUCOSE BEDSIDE (test code = GLUBED) 165 MG/DL 70-110 H Performed by cer tified kiln transfer operator at [facility] GLUCOSE [id number] 23:02:00* Test Item Value Reference Range Interpretation Comme nts GLUCOSE BEDSIDE (test code = GLUBED) 209 MG/DL 70-110 H Performed by cer tified kiln transfer operator at [facility] GLUCOSE [id number] 20:27:00* Test Item Value Reference Range Interpretation Comme nts GLUCOSE BEDSIDE (test code = GLUBED) 218 MG/DL 70-110 H Performed by cer [employer] kiln transfer operator at [facility] CBC W/AUTO [id number] 17:47:00* Test Item Value Reference Range Interpretation [...] NRBC#) 0.00 x10 3/uL 0.0-0.1 N GLUCOSE [id number] 17:38:00* Test Item Value Reference Range Interpretation Comme nts GLUCOSE BEDSIDE (test code = GLUBED) 219 MG/DL 70-110 H Performed by ruel hameed kiln transfer operator at [facility] RENAL FUNCTION [id number] 17:21:00* Test Item Value Reference Range Interpretation [...] gap </= 12 mEq/L, then every morning [id number] 17:21:00* Test Item Value Reference Range Interpretation Comme nts MAGNESIUM (test code = MAG) 2.03 mg/dL 1.80-2.40 N COMMENTS: Every 6 hours until anion gap </= 12 mEq/L, then every morningUA RFLX MICR CULT IF [id number] 16:51:00* Test Item Value Reference Range Interpretation [...] culture: RiskForSepsis-no oth srcSpecimen Description: Clean CatchGLUCOSE [id number] 16:12:00* Test Item Value Reference Range Interpretation Comme nts GLUCOSE BEDSIDE (test code = GLUBED) 232 MG/DL 70-110 H Performed by cer tified kiln transfer operator at [facility] GLUCOSE [id number] 15:20:00* Test Item Value Reference Range Interpretation Comme nts GLUCOSE BEDSIDE (test code = GLUBED) 307 MG/DL 70-110 H Performed by cer tified kiln transfer operator at [facility] GLUCOSE [id number] 13:53:00* Test Item Value Reference Range Interpretation Comme nts GLUCOSE BEDSIDE (test code = GLUBED) 340 MG/DL 70-110 H Performed by cer tified kiln transfer operator at [facility] GLUCOSE [id number] 13:53:00* Test Item Value Reference Range Interpretation Comme nts GLUCOSE BEDSIDE (test code = GLUBED) 363 MG/DL 70-110 H Performed by cer tified kiln transfer operator at [facility] GLUCOSE [id number] 12:46:00* Test Item Value Reference Range Interpretation Comme nts GLUCOSE BEDSIDE (test code = GLUBED) 326 MG/DL 70-110 H Performed by cer tified kiln transfer operator at [facility] RENAL FUNCTION [id number] 11:45:00* Test Item Value Reference Range Interpretation [...] gap </= 12 mEq/L, then every morning [id number] 11:45:00* Test Item Value Reference Range Interpretation Comme [facility] MAGNESIUM (test code = MAG) 2.06 mg/dL 1.80-2.40 N COMMENTS: Every 6 hours until anion gap </= 12 mEq/L, then every morningB-TYPE NATRIURETIC [id number] 11:43:00* Test Item Value Reference Range Interpretation Comme [facility] B-TYPE NATRIURETIC PEPTIDE ( test code = BNP) 96.0 PG/ML 0-100 N TOTAL IRON BINDING [id number] 09:30:00* Test Item Value Reference Range Interpretation Comme [facility] SERUM IRON (test code = IRON) 8 mcg/dL 35-150 L TOTAL IRON BINDING CAPACITY (test code = TIBC) 148 mcg/dL 260-445 L UIBC (test code = UIBC) 140 mcg/dL IRON SATURATION (test code = FESAT) 5.4 % 14-34 L VITAMIN [id number] 09:30:00* Test Item Value Reference Range Interpretation Comme [facility] VITAMIN B12 (test code = VITB12) 5883 pg/mL 193-986 H FOLIC [id number] 09:30:00* Test Item Value Reference Range Interpretation Comme [facility] FOLIC ACID (test code = FOL) 9.5 ng/mL 3.1-17.5 N [id number] 09:30:00* Test Item Value Reference Range Interpretation Comme [facility] FERRITIN (test code = COLEMAN) 2429.2 ng/mL 23.9-336.2 H RENAL FUNCTION [id number] 09:05:00* Test Item Value Reference Range Interpretation [...] gap </= 12 mEq/L, then every morning [id number] 09:05:00* Test Item Value Reference Range Interpretation Comme nts MAGNESIUM (test code = MAG) 2.13 mg/dL 1.80-2.40 N COMMENTS: Every 6 hours until anion gap </= 12 mEq/L, then every morningGLUCOSE [id number] 08:16:00* Test Item Value Reference Range Interpretation Comme nts GLUCOSE BEDSIDE (test code = GLUBED) 292 MG/DL 70-110 H Performed by cer zari kiln transfer operator at [facility] COMPREHENSIVE METABOLIC [id number] 05:28:00* Test Item Value Reference Range Interpretation [...] code = ALKP) 150 IUnit/L 20-125 H [id number] 05:28:00* Test Item Value Reference Range Interpretation Comme nts PHOSPHOROUS (test code = PHOS) 2.9 MG/DL 2.5-4.9 N [id number] 05:28:00* Test Item Value Reference Range Interpretation Comme nts MAGNESIUM (test code = MAG) 2.13 mg/dL 1.80-2.40 N GLUCOSE [id number] 05:23:00* Test Item Value Reference Range Interpretation Comme nts GLUCOSE BEDSIDE (test code = GLUBED) 332 MG/DL 70-110 H Performed by cer tified kiln transfer operator at [facility] HGBA1C%2022-08-19 04:57:00* Test Item Value Reference Range Interpretation Comme nts HGBA1C% (test code = HGBA1C%) > 14.0 %A1C 4.8-6.0 H CBC W/AUTO [id number] 04:24:00* Test Item Value Reference Range Interpretation [...] 0.00 x10 3/uL 0.0-0.1 N COMPREHENSIVE METABOLIC [id number] 04:15:00* Test Item Value Reference Range Interpretation [...] ( test code = ALKP) IUnit/L 20-125 [id number] 04:15:00* Test Item Value Reference Range Interpretation Comme nts PHOSPHOROUS (test code = PHOS) MG/DL 2.5-4.9 [id number] 04:15:00* Test Item Value Reference Range Interpretation Comme nts MAGNESIUM (test code = MAG) mg/dL 1.80-2.40 CALCIUM [id number] 04:15:00* Test Item Value Reference Range Interpretation Comme nts CALCIUM IONIZED (test code = KARLA) 1.07 MMOL/L 1.09-1.30 L GLUCOSE [id number] 01:14:00* Test Item Value Reference Range Interpretation Comme nts GLUCOSE BEDSIDE (test code = GLUBED) 296 MG/DL 70-110 H Performed by ruel hameed kiln transfer operator at [facility] - DUP KRZYSZTOF [place] UNI/[id number] 00:00:00 [facility] : 1965 Sex: MName: KARMA ROWLAND [facility] : 1965 Age/S: 56 / M [address] [place] [address] Unit #: [id number] Loc: [place] [address] Phys: Wilbert Ramires MD Acct: [id number] Dis Date: Status: ADM IN PHONE #: [phone] Exam Date: 08/19/2022 0950 FAX #: [phone] Reason: right LE gas gangrene EXAMS: CPT CODE: [id number] [employer] UNI/LTD 91515 PROCEDURE INFORMATION: Exam: US Duplex RightLower Extremity [...] femoral artery: The right common femoral artery demonstrates triphasic waveforms, 92 cm/s. Right superficial [...] CC: Wilbert Ramires MD Technologist: Ruth Phillips Trnscb Date/Time: 08/19/2022 (5206) HollyR.SG9 PAGE 1 Signed Report GLUCOSE [id number] 23:47:00* Test Item Value Reference Range Interpretation Comme nts GLUCOSE BEDSIDE (test code = GLUBED) 265 MG/DL 70-110 H Performed by cer loganied kiln transfer operator at [facility] RENAL FUNCTION [id number] 23:19:00* Test Item Value Reference Range Interpretation [...] gap </= 12 mEq/L, then every morning [id number] 23:19:00* Test Item Value Reference Range Interpretation Comme nts MAGNESIUM (test code = MAG) 2.13 mg/dL 1.80-2.40 N COMMENTS: Every 6 hours until anion gap </= 12 mEq/L, then every morningGLUCOSE [id number] 20:07:00* Test Item Value Reference Range Interpretation Comme [facility] GLUCOSE BEDSIDE (test code = GLUBED) 226 MG/DL 70-110 H Performed by cer tified kiln transfer operator at [facility] GLUCOSE [id number] 20:07:00* Test Item Value Reference Range Interpretation Comme [facility] GLUCOSE BEDSIDE (test code = GLUBED) 223 MG/DL 70-110 H Performed by cer tified kiln transfer operator at [facility] GLUCOSE [id number] 20:07:00* Test Item Value Reference Range Interpretation Comme [facility] GLUCOSE BEDSIDE (test code = GLUBED) 186 MG/DL 70-110 H Performed by cer tified kiln transfer operator at [facility] LIPID PROFILE (CORONARY RISK)2022-08-18 15:54:00* Test Item Value Reference Range Interpretation Comme [facility] TRIGLYCERIDES (test code = TRIG) 161 [...] = LDL) 33.0 mg/dL 0-100 N <100 BGWKBKA72 0-129 NEAR OPTIMAL/ABOVE [id number] DPUCZFLAET696-199 HIGH>AM=161 VERY HIGH*Guidelines provided by the National Cholesterol EducationProgram Adult Treatment Panel III T4 [id number] 15:54:00* Test Item Value Reference Range Interpretation Comme nts T4 FREE (test code = T4F) 0.7 ng/dL 0.77-1.61 L THYROID STIMULATING [id number] 15:54:00* Test Item Value Reference Range Interpretation Comme nts THYROID STIMULATING HORMONE (test code = TSH) 0.96 0.42-5.47 N Result s in jalen-International Units/mL RENAL FUNCTION [id number] 15:09:00* Test Item Value Reference Range Interpretation [...] gap </= 12 mEq/L, then every morning [id number] 15:09:00* Test Item Value Reference Range Interpretation Comme nts MAGNESIUM (test code = MAG) 2.09 mg/dL 1.80-2.40 N COMMENTS: Every 6 hours until anion gap </= 12 mEq/L, then every morningGLUCOSE [id number] 14:15:00* Test Item Value Reference Range Interpretation Comme nts GLUCOSE BEDSIDE (test code = GLUBED) 195 MG/DL 70-110 H Performed by cer tified kiln transfer operator at [facility] GLUCOSE [id number] 13:20:00* Test Item Value Reference Range Interpretation Comme nts GLUCOSE BEDSIDE (test code = GLUBED) 213 MG/DL 70-110 H Performed by cer [employer] kiln transfer operator at [facility] GLUCOSE [id number] 12:14:00* Test Item Value Reference Range Interpretation Comme nts GLUCOSE BEDSIDE (test code = GLUBED) 201 MG/DL 70-110 H Performed by cer Side[employer] kiln transfer operator at [facility] GLUCOSE [id number] 11:18:00* Test Item Value Reference Range Interpretation Comme nts GLUCOSE BEDSIDE (test code = GLUBED) 223 MG/DL 70-110 H Performed by cer Side.Cr kiln transfer operator at [facility] GLUCOSE [id number] 10:19:00* Test Item Value Reference Range Interpretation Comme nts GLUCOSE BEDSIDE (test code = GLUBED) 304 MG/DL 70-110 H Performed by cer [employer] kiln transfer operator at [facility] GLUCOSE [id number] 09:11:00* Test Item Value Reference Range Interpretation Comme nts GLUCOSE BEDSIDE (test code = GLUBED) 405 MG/DL 70-110 H Performed by cer tified kiln transfer operator at [facility] GLUCOSE [id number] 08:34:00* Test Item Value Reference Range Interpretation Comme nts GLUCOSE BEDSIDE (test code = GLUBED) 449 MG/DL 70-110 H Performed by [employer] kiln transfer operator at [facility] RENAL FUNCTION [id number] 06:41:00* Test Item Value Reference Range Interpretation Comme nts SODIUM (test code = NA) 121 mEq/L 134-147 LL Critical result called to ROSIBEL Aden .LAB.KAF at 0640 08/18/22Nurse read back resut and tech confirmed it's correct? Y POTASSIUM (test code = K) 4.1 mEq/L 3.4-5.0 N CHLORIDE (test code = CL) 90 mEq/L 100-108 L CARBON DIOXIDE (test code = CO2) 15 mEq/l 21-33 L ANION GAP (test code = GAP) 20 0-20 N GLUCOSE (test code = GLU) 692 mg/dL 70-110 HH Critical result called to ROSIBEL TripathiLAB.KAF at 0641 08/18/22Nurse read back resut and [...] gap </= 12 mEq/L, then every morning TRXDWGBVZ9689-77-90 06:41:00* Test Item Value Reference Range Interpretation Comme nts MAGNESIUM (test code = MAG) 2.34 mg/dL 1.80-2.40 N COMMENTS: Every 6 hours until anion gap </= 12 mEq/L, then every morningACETONE QWNLU4027-38-43 06:41:00* Test Item Value Reference Range Interpretation Comme nts ACETONE QUANT (test code = ACETN) Large - 80-100 mg/dL mg/dL See_Comment [Automated message] The system which generated this result transmitted reference range: Neg - <20. The reference range was not used to interpret this result as normal/abnormal. COMMENTS: Every 6 hours until anion gap </= 12 mEq/L, then every lwqfkoyMROU4N% 2022-08-18 06:28:00* Test Item Value Reference Range Interpretation Comme nts HGBA1C% (test code = HGBA1C%) 13.4 %A1C 4.8-6.0 H ZIFNUSGHZA4979-28-91 03:14:00* Test Item Value Reference Range Interpretation Comme nts SALICYLATE (test code = BANG) 5.6 mg/dL 0.0-20.0 N POC ARTERIAL BLOOD WEX0671-68-23 03:10:00* Test Item Value Reference Range Interpretation Comme nts POC ARTERIAL BLOOD GAS PH (t est code = POCPHA) 7.309 7.35-7.45 L POC ARTERIAL BLOOD GAS PCO2 (test code = PMEHFI3U) 22.3 mmHg 35.0-45 LL POC TCO2 ARTERIAL (test code = POCTCO2) 11.9 POC ARTERIAL BLOOD GAS PO2 ( test code = WFBGB1K) 108.0 mmHg 80-100.0 H POC HCO3 ARTERIAL (test code = BJHXEO6L) 11.2 MMOL/L 22.0-26.0 LL POC BASE EXCESS (test code = POCBEA) -15.1 MMOL/L -4.0-4.0 L POC O2 SATURATION (test code = POCO2S) 97.9 % 90-100 N FIO2 (test code = FIO2A) 21 % PaO2/FiO2 (test code = LNJ6YIS6) 514.28 mm/Hg ABG DELIVERY (test code = ANDREA) Room Air ABG SITE (test code = SITEA) R Radial NETO'S TEST (test code = ALLENS) Positive COVID 19 INHOUSE [id number] 03:08:00* Test Item Value Reference Range Interpretation Comme nts COVID 19 INHOUSE AG (test code = XSOPR78CKSJ) Negative Negative A negative resul t is [...] moderate, high or waivedcomplexity tests. INFLUENZA A [id number] 03:06:00* Test Item Value Reference Range Interpretation Comme nts INFLUENZA A (test code = FLUAPCR) Negative Negative INFLUENZA B (test code = FLUBPCR) Negative Negative WBC RRESAFLZIZQF4383-32-34 03:04:00* Test Item Value Reference Range Interpretation [...] (test code = PLTMORPH) NORMAL CBC W/AUTO SNDR3288-93-24 03:04:00* Test Item Value Reference Range Interpretation [...] (test c ode = MDIFF) YES LACTIC [id number] 02:44:00* Test Item Value Reference Range Interpretation Comme nts LACTIC ACID (test code = LACT) 1.2 mmol/L 0.4-1.9 N BASIC METABOLIC ODQAV1478-91-02 02:44:00* Test Item Value Reference Range Interpretation [...] 70-110 HH Critical [place] [address]/18/22Nurse read back resut and tech confirmed it's [...] CA) 8.5 mg/dL 8.0-10.5 N HEPATIC FUNCTION TRJAO7340-57-63 02:44:00* Test Item Value Reference Range Interpretation [...] code = ALKP) 157 IUnit/L 20-125 H VWONTN1417-59-33 02:44:00* Test Item Value Reference Range Interpretation Comme nts LIPASE (test code = LIP) 24 U/L 13-57 N TROP-I HIGH PIPZLOLPWUT9717-74-66 02:44:00* Test Item Value Reference Range Interpretation [...] URL. These results were obtained using Siemens Atellica IM TnIHreagent. Results from different methodologies should not becompared to one another as quantitative results and URLs mayvary by method. - CT LOWER EXTRM W/O C [id number] 00:00:00 [facility] 1965 Sex: MName: KARMA ROWLAND [facility] : 1965 Age/S: 56 / M [address] [place] [address] Unit #: [id number] Loc: [place] [address] Phys: Andrew London MD Acct: [id number] Dis Date: Status: ADM IN PHONE #: [phone] Exam Date: 08/18/2022 0645 FAX #: [phone] Reason: soft tissue infection Report Has Been Amended EXAMS: CPT CODE: [id number] [place] L[place] EXTRM W/[place] [address] Addendum - 08/18/2022 SIGNED 08/18/2022 ADDENDUM: [id number] CT/CTLEWOCRT Notes: Critical findings were discussed with Dr. Ortega at 08/18/2022 8:38 AM CDT. at 0839 Reported and signed by: Kendall Dorantes M.D. Report PROCEDURE INFORMATION: Exam: CT Right Lower Extremity Without Contrast, Foot Exam date and time: 08/18/2022 6:29 AM Age: 56 years old Clinical indication: Other: Soft tissue infection TECHNIQUE: Imaging protocol: CT ofthe right lower extremity without contrast was performed. Exam focused on the foot. Radiation optimization: All CT scans at this facility use at least one of these dose optimization techniques: automated exposure control; mA and/or kV adjustment per patient size (includes targeted exams where doseis matched to clinical indication); or iterative reconstruction. [...] mid and hindfoot. Soft tissues: There is generalizedsubcutaneous edema in the foot and visualized leg. There are multifocal areas of superficial blistering. There is no discrete walled-off fluid collection within limitations of noncontrast technique. There is mottled soft tissue gas in the visualized subcutaneous tissues, dorsal and plantar PAGE 1 Signed Report (CONTINUED) Name: KARMA ROWLAND [facility] : 1965 Age/S: 56 / M [address] [place] [address] Unit #: [id number] Loc: [place] [address] Phys: Andrew London MD Acct: [id number] Dis Date: Status: ADM IN PHONE #: [phone] Exam Date: 08/18/2022 0645 FAX #: [phone] Reason: soft tissue infection Report Has Been Amended EXAMS: CPT CODE: [id number] CT LOWER EXTRM W/[place] [address] (Continued) compartments of the foot with extension along the extensor and flexor tendon sheaths in the visualized leg. Notes: Call report initiated at 08/18/2022 8:25 AM CDT. IMPRESSION: Extensive soft tissue edema with mottled gas in the subcutaneous and intramuscular compartmentsof the foot compatible with gas-forming infection. Disease extends into the visualized distal leg. at 08 Reported and signed by: Kendall Dorantes M.D. CC: Wilbert Ramires MD; Andrew London MD Technologist:RT Tricia(R)(CT) CTDI: DLP: Trnscb Date/Time: 08/18/2022 (825) HollyR.KWL Orig Print D/T: S: 08/18/2022 (826) PAGE 2 Signed Report- XR FOOT 3 + V [id number] 00:00:00 [facility] : 1965 Sex: MFAX: Angi Peña [place]: St: REG Name: KARMA ROWLAND [facility] : 1965 Age/S: 56/M [address] [place] [address] Unit #: [id number] Loc: [place] [address] Phys: Angi Peña Acct: [id number] Dis Date: Status: REG ER PHONE #: [phone] Exam Date: 08/18/2022 0238 FAX #: [phone] Reason: DIABETIC FOOT WOUND R/O OSTEOMYLITIS EXAMS: CPT CODE: [id number] XR FOOT 3 + V RT 57135 PROCEDURE INFORMATION: Exam: XR Right Foot Exam date and time: 08/18/2022 2:35 AM Age: 56 years old Clinical indication: Other: Diabetic foot wound R/O osteomylitis TECHNIQUE: Imaging protocol: Radiologic exam of the right foot. Views: 3 or more views. AP Oblique Lateral COMPARISON: No relevant priorstudies available. FINDINGS: Bones/joints: No osseous erosion or [...] and signed by: Jay Ladd M.D. CC: Kirt Peña Technologist: RT Kush(Avinash) Trnscrd Date/Time/By: 08/18/2022 (035) : By: Dilip.[email or web address] Orig Print D/T: S: 08/18/2022 (0358) PAGE 1 Signed Report- XR CHEST 2 [id number] 00:00:00 [facility] : 1965 Sex: MFAX: Angi Peña [place]: St: REG Name: KARMA ROWLAND [facility] : 1965 Age/S: 56/M [address] [place] [address] Unit #: [id number] Loc: [place] [address] Phys: Angi Peña Acct: [id number] Dis Date: Status: [facility] ER PHONE #: [phone] Exam Date: 08/18/2022200 FAX #: [phone] Reason: FEVER PAIN EXAMS: CPT CODE: [id number] XR CHEST 2 V 08130 PROCEDURE INFORMATION: Exam:XR Chest Exam date and time: 08/18/2022 1:58 [...] resolution and exclude an underlying process or neop lasm. at 0317 Reported and signed by: Dom Adams M.D. CC: Angi Peña Technologist: Nicolle Rosas, RT(R) TrnscrdDate/Time/By: 08/18/2022 (316) : By: [email or web address] [facility] Print D/T: S: 08/18/2022 (316) PAGE 1 SignedReport- CT ABD PELVIS W/GPOB7001-74-40 00:00:00 [facility] : 1965 Sex: MName: KARMA ROWLAND [facility] : 1965 Age/S: 56 / M [address] [place] [address] Unit #: [id number] Loc: [place] [address] Phys: Angi Peña Acct: [id number] Dis Date: Status: ADM IN PHONE #: [phone] Exam Date: 08/18/2022338 FAX #: [phone] Reason: FEVER PAIN EXAMS: CPT CODE: [id number] CT ABD PELVIS W/CONT 87466 PROCEDURE INFORMATION: Exam: CT Abdomen And Pelvis [...] AM FINDINGS: Liver: No hepatic lesion or significantsteatosis. Gallbladder and bile ducts: No gross abnormalities. [...] 1 Signed Report (CONTINUED) Name: KARMA ROWLAND [facility] : 1965 Age/S: 56 / M [address] [place] [address] Unit #: [id number] Loc: [place] [address] Phys: Angi Peña Acct: [id number] Dis Date: Status: ADM IN PHONE #: [phone] Exam Date: 08/18/2022 0330 FAX #: [phone] Reason: FEVERPAIN EXAMS: CPT CODE: [id number] CT ABD PELVIS W/CONT 30037 (Continued) 3.3 cm hypodensity in the left posterior prostate or seminal vesicle. This could represent an abscess. Contrast-enhanced MRI ofthe pelvis would be helpful for further evaluation. No acute intra-abdominal findings otherwise. at 0546 Reported and signed by: Jay Ladd M.D. CC: Angi Peña Technologist:Marquez Landry, RT(R)(CT) CTDI: DLP: Trnscb Date/Time: 08/18/2022 (545) [email or web address] Orig Print D/T: S: 08/18/2022 (545) PAGE 2 Signed Report Notes Date/Time Note Provider Source 2023-09-29 16:52:27 B5HtNyVAuuSSRtxE2XZYufxFG/Ga08CUew7B66uO Yhx zgVHUwpJiHsVjWZwdC0G75007-77-21L76:52:27For matting of this note might be different from the original.Called Dr. Hazel for Urgent appointment ,referral authorized and faxed to their office. Appointment scheduled tomorrow at 0915 and patient verbalized understanding. 96272-1Yqmxn UqhvID4541-74-68J13:55:57Nurse NoteTXT1.2.840.971016.1.13.131.2.7.2.316551 |[id number] for patient nzjv01028-8Nqqtk NoteLNNARRATIVEFormatted C-CDA narrative [id number] Lynne LVNHuron Valley-Sinai HospitalCharleneMayo Clinic Hospital[address] [facility]landsDZDPWJAWSNEAGOAXDK5462346554BXXM8133-6 6:55:571.2.840.991143.1.72.3.15|1.2.8 40.006304.1.13.131.2.7.2.727879_418648315 Domi Hinojosachoctaw nation health [facility] center – talihinaCharlenedanville state [facility] 2022-09-24 19:34:00 [id number]+aLaGYWNeTvmQ5Bs 6lh WgAd2sCctxksDYp9o/FFXF11f5Iy4R6Et0838-64-59 T19:34:00 [facility])Podiatry Progress NoteREPORT#:[id number] REPORT STATUS: SignedDATE:09/24/22 TIME: 1933 PATIENT: KARMA ROWLAND UNIT #: [id number]#: [id number] ROOM/BED: [facility] [place]DOB: [birth year] AGE: 56 SEX: M ATTEND: Mj Vences [facility] AUTHOR: Liam Pedersen DPM * ALL edits [...] O:24 hour I O ending at 0700: 05/03 0700 05/02 1900 Intake Total 240 Output [...] % (Auto) (14.0 - 32.0 %) 14.8 [place] % (Auto) (4.8 - 9.0 %) 7.6 Eos % (Auto) (0.3 - 3.7 %) 3.0 Baso % (Auto) (0.0 - 2.0 %) 0.0 Neut # (Auto) (2.0 - 7.6 x10 3/uL) 9.62 H Lymph # (Auto) (1.0 - 3.8 x10 3/uL) 1.93 [place] # (Auto) (0.1 - 0.8 x10 3/uL) [...] hospitalist, infectious disease, podiatry at 1934 RPT #:[id number] OF REPORTPRProgress hpcb7929-52-71U84:34:00G.CSEP13402894-5015T VAvailable for patient xkbqCLBLRWBAGFECUO1944-46-57O07:35:19 [facility] 2022-09-24 16:05:00 [id number]+1XlSkYynCDyPyk1 Ho5 aqq7QU0ApbsyDyB+32qpGub3wsDAwPjWv8078-49-00 T16:05:00 [facility] ([facility])Infectious Dis. 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 Denies acute or new complaints. No major overnight events. Objective GeneralVS/I O:Vital SignsDate Temp Pulse Resp B/P B/P Mean Pulse Ox GjN680/02-09/24 97.7-97.9 86-87 16 160-169/81-86 107.5-113.7 97 Last Documented: Result Date Time Pulse Ox 97 09/24 000 B/P 160/81 09/24 000 B/P Mean 107.5 09/24 000 O2 Delivery Room air 09/24 8 Temp 97.9 09/24 8 Pulse 87 09/24 000 Resp 16 09/24 000 O2 Flow Rate 2 09/08 1322 Vital [...] right BKA Left foot wound +dressing in placeNeuro/CONTRACT RUNNER: alert, oriented X 3 Considered stroke alert: [...] monitor off antimicrobials.-Continue supportive care. at 1605 RPT #:[id number] OF REPORTPRProgress slhq7331-58-27Q48:05:00G.RBJJ89889042-2063G VAvailable for patient ubgsOVOAFBUDLMDXHD4334-33-10B14:06:07 [facility] 2022-09-24 15:22:00 [id number]+OuUDnr qT3 4zeoAlfTYgsKcfGoR46mgu0PQ1ytaqr6c1950-94-91 T15:22:00 [facility] ([facility])Pain Management Progress NoteREPORT#:[id number] REPORT STATUS: SignedDATE:09/24/22 TIME: 1521 PATIENT: KARMA ROWLAND UNIT #: [id number]#: [id number] [address] AGE: 56 SEX: M ATTEND: Mj Vences [facility] AUTHOR: Ben Klein * ALL edits or amendments must be made on the electronic/computer document * Ben Klein 09/24/22 1522:SubjectiveChief complaint:Patient seen and examined. Chart/MAR reviewed. Patient [...] Pulse Resp B/P B/P Mean Pulse Ox BxP025/02-/ 36.5-36.6 86-87 16 160-169/81-86 107.5-113.7 97 Last Documented: Result Date Time Pulse Ox 97 09/24 8 B/P 160/81 09/24 000 B/P Mean 107.5 09/24 0009 O2 Delivery [...] moves all, no edema, pedal pulses, right BKANeuro/CONTRACT RUNNER: 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, no sensory deficits, CNII-XII grossly intact Considered stroke alert: noSkin: dry, intact, no rashLymphatics: axilla normalPsychiatry: normal affect, normal judgment/insight ResultsFindings/data:Laboratory Tests: 09/24 09/24 09/24 09/23 1052 9064 1348 8320 Chemistry Sodium (134 - 147 mEq/L) 144 [...] % (Auto) (14.0 - 32.0 %) 14.8 [place] % (Auto) (4.8 - 9.0 %) 7.6 Eos % (Auto) (0.3 - 3.7 %) 3.0 Baso % (Auto) (0.0 - 2.0 %) 0.0 Neut # (Auto) (2.0 - 7.6 x10 3/uL) 9.62 H Lymph # (Auto) (1.0 - 3.8 x10 3/uL) 1.93 [place] # (Auto) (0.1 - 0.8 x10 3/uL) [...] to comorbid conditions-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 every 4 hours [...] pain , gabapentin 100mg q8h sent to [facility]/pharmacy #[id number] [facility] [place] [place] [address] ([facility] [address]) Patient has [...] whom agrees. Thank you for the consultation. 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 I personally developed the care plan, which was continued by the mid-level provider. I was immediately available. at 1528 at 1308 RPT #:[id number] OF REPORTPRProgress wrqe5720-11-61Z07:22:00G.DZKA29220185-1926R VAvailable for patient ucaeRMVDBXRVXQALYV9284-87-08I32:29:21 [facility] 2022-09-24 14:06:00 [id number]Zx/t s8h 33K7rKw58fy6kEppNaF+XajXubzRRSlPC9773-98-84 T14:06:00 [facility] Progress NoteREPORT#:[id number] REPORT STATUS: SignedDATE:09/24/22 TIME: 1406 PATIENT: KARMA ROWLAND UNIT #: [id number]#: [id number] [address] AGE: 56 SEX: M ATTEND: [...] % (Auto) (14.0 - 32.0 %) 14.8 [place] % (Auto) (4.8 - 9.0 %) 7.6 Eos % (Auto) (0.3 - 3.7 %) 3.0 Baso % (Auto) (0.0 - 2.0 %) 0.0 Neut # (Auto) (2.0 - 7.6 x10 3/uL) 9.62 H Lymph # (Auto) (1.0 - 3.8 x10 3/uL) 1.93 [place] # (Auto) (0.1 - 0.8 x10 3/uL) [...] (Auto) (14.0 - 32.0 %) 9.6 L [place] % (Auto) (4.8 - 9.0 %) 4.5 L Eos % (Auto) (0.3 - 3.7 %) 0.1 L Baso % (Auto) (0.0 - 2.0 %) 0.1 Neut # (Auto) (2.0 - 7.6 x10 3/uL) 10.02 H Lymph # (Auto) (1.0 - 3.8 x10 3/uL) 1.13 [place] # (Auto) (0.1 - 0.8 x10 3/uL) [...] (Auto) (14.0 - 32.0 %) 11.3 L [place] % (Auto) (4.8 - 9.0 %) 5.7 Eos % (Auto) (0.3 - 3.7 %) 0.2 L Baso % (Auto) (0.0 - 2.0 %) 0.0 Neut # (Auto) (2.0 - 7.6 x10 3/uL) 9.79 H Lymph # (Auto) (1.0 - 3.8 x10 3/uL) 1.35 [place] # (Auto) (0.1 - 0.8 x10 3/uL) [...] (Auto) (14.0 - 32.0 %) 11.3 L [place] % (Auto) (4.8 - 9.0 %) 5.3 Eos % (Auto) (0.3 - 3.7 %) 0.2 L Baso % (Auto) (0.0 - 2.0 %) 0.1 Neut # (Auto) (2.0 - 7.6 x10 3/uL) 10.70 H Lymph # (Auto) (1.0 - 3.8 x10 3/uL) 1.47 [place] # (Auto) (0.1 - 0.8 x10 3/uL) [...] (Auto) (14.0 - 32.0 %) 13.0 L [place] % (Auto) (4.8 - 9.0 %) 6.2 Eos % (Auto) (0.3 - 3.7 %) 0.2 L Baso % (Auto) (0.0 - 2.0 %) 0.1 Neut # (Auto) (2.0 - 7.6 x10 3/uL) 9.84 H Lymph # (Auto) (1.0 - 3.8 x10 3/uL) 1.60 [place] # (Auto) (0.1 - 0.8 x10 3/uL) [...] % (Auto) (14.0 - 32.0 %) 16.5 [place] % (Auto) (4.8 - 9.0 %) 8.4 Eos % (Auto) (0.3 - 3.7 %) 2.4 Baso % (Auto) (0.0 - 2.0 %) 0.2 Neut # (Auto) (2.0 - 7.6 x10 3/uL) 9.50 H Lymph # (Auto) (1.0 - 3.8 x10 3/uL) 2.19 [place] # (Auto) (0.1 - 0.8 x10 3/uL) [...] H Laboratory Tests: 09/18 09/18 09/18 09/18 161 1102 0906 0540 Chemistry POC Glucose (70 [...] % (Auto) (14.0 - 32.0 %) 17.4 [place] % (Auto) (4.8 - 9.0 %) 6.9 Eos % (Auto) (0.3 - 3.7 %) 0.1 L Baso % (Auto) (0.0 - 2.0 %) 0.1 Neut # (Auto) (2.0 - 7.6 x10 3/uL) 7.91 H Lymph # (Auto) (1.0 - 3.8 x10 3/uL) 1.85 [place] # (Auto) (0.1 - 0.8 x10 3/uL) [...] (Auto) (14.0 - 32.0 %) 10.2 L [place] % (Auto) (4.8 - 9.0 %) 2.9 L Eos % (Auto) (0.3 - 3.7 %) 0.0 L Baso % (Auto) (0.0 - 2.0 %) 0.1 Neut # (Auto) (2.0 - 7.6 x10 3/uL) 7.58 Lymph # (Auto) (1.0 - 3.8 x10 3/uL) 0.91 L [place] # (Auto) (0.1 - 0.8 x10 3/uL) [...] % (Auto) (14.0 - 32.0 %) 18.6 [place] % (Auto) (4.8 - 9.0 %) 6.7 Eos % (Auto) (0.3 - 3.7 %) 0.2 L Baso % (Auto) (0.0 - 2.0 %) 0.1 Neut # (Auto) (2.0 - 7.6 x10 3/uL) 6.99 Lymph # (Auto) (1.0 - 3.8 x10 3/uL) 1.77 [place] # (Auto) (0.1 - 0.8 x10 3/uL) [...] pH (5.0 - 7.0) 5.0 Ur Specific [place] (1.005 - 1.030) 1.013 Urine Protein (NEGATIVE) [...] (Auto) (14.0 - 32.0 %) 11.3 L [place] % (Auto) (4.8 - 9.0 %) 3.2 L Eos % (Auto) (0.3 - 3.7 %) 0.0 L Baso % (Auto) (0.0 - 2.0 %) 0.1 Neut # (Auto) (2.0 - 7.6 x10 3/uL) 7.35 Lymph # (Auto) (1.0 - 3.8 x10 3/uL) 0.98 L [place] # (Auto) (0.1 - 0.8 x10 3/uL) [...] 09/14 09/14 09/14 09/14 09/13 1130 0736 0562 0564 1937Chemistry Sodium (134 - 147 mEq/L) 132 [...] (Auto) (14.0 - 32.0 %) 13.9 L [place] % (Auto) (4.8 - 9.0 %) 5.1 Eos % (Auto) (0.3 - 3.7 %) 0.0 L Baso % (Auto) (0.0 - 2.0 %) 0.1 Neut # (Auto) (2.0 - 7.6 x10 3/uL) 7.58 Lymph # (Auto) (1.0 - 3.8 x10 3/uL) 1.31 [place] # (Auto) (0.1 - 0.8 x10 3/uL) [...] (Auto) (14.0 - 32.0 %) 10.4 L [place] % (Auto) (4.8 - 9.0 %) 3.5 L Eos % (Auto) (0.3 - 3.7 %) 0.0 L Baso % (Auto) (0.0 - 2.0 %) 0.1 Neut # (Auto) (2.0 - 7.6 x10 3/uL) 8.34 H Lymph # (Auto) (1.0 - 3.8 x10 3/uL) 1.02 [place] # (Auto) (0.1 - 0.8 x10 3/uL) [...] % (Auto) (14.0 - 32.0 %) 15.0 [place] % (Auto) (4.8 - 9.0 %) 7.9 Eos % (Auto) (0.3 - 3.7 %) 3.8 H Baso % (Auto) (0.0 - 2.0 %) 0.3 Neut # (Auto) (2.0 - 7.6 x10 3/uL) 6.34 Lymph # (Auto) (1.0 - 3.8 x10 3/uL) 1.31 [place] # (Auto) (0.1 - 0.8 x10 3/uL) [...] % (Auto) (14.0 - 32.0 %) 16.1 [place] % (Auto) (4.8 - 9.0 %) 9.1 H Eos % (Auto) (0.3 - 3.7 %) 5.6 H Baso % (Auto) (0.0 - 2.0 %) 0.5 Neut # (Auto) (2.0 - 7.6 x10 3/uL) 5.35 Lymph # (Auto) (1.0 - 3.8 x10 3/uL) 1.27 [place] # (Auto) (0.1 - 0.8 x10 3/uL) [...] % (Auto) (14.0 - 32.0 %) 15.5 [place] % (Auto) (4.8 - 9.0 %) 8.5 Eos % (Auto) (0.3 - 3.7 %) 5.5 H Baso % (Auto) (0.0 - 2.0 %) 0.4 Neut # (Auto) (2.0 - 7.6 x10 3/uL) 5.94 Lymph # (Auto) (1.0 - 3.8 x10 3/uL) 1.33 [place] # (Auto) (0.1 - 0.8 x10 3/uL) [...] % (Auto) (14.0 - 32.0 %) 16.1 [place] % (Auto) (4.8 - 9.0 %) 9.2 H Eos % (Auto) (0.3 - 3.7 %) 4.7 H Baso % (Auto) (0.0 - 2.0 %) 0.4 Neut # (Auto) (2.0 - 7.6 x10 3/uL) 6.38 Lymph # (Auto) (1.0 - 3.8 x10 3/uL) 1.49 [place] # (Auto) (0.1 - 0.8 x10 3/uL) [...] (Auto) (14.0 - 32.0 %) 13.7 L [place] % (Auto) (4.8 - 9.0 %) 7.2 Eos % (Auto) (0.3 - 3.7 %) 4.8 H Baso % (Auto) (0.0 - 2.0 %) 0.3 Neut # (Auto) (2.0 - 7.6 x10 3/uL) 6.64 Lymph # (Auto) (1.0 - 3.8 x10 3/uL) 1.24 [place] # (Auto) (0.1 - 0.8 x10 3/uL) [...] By: TipRG17 - Roger Parra M.D.ULTRASOUND [facility] UNI/LTD 09/05 1146 Report Impression [...] Anemia7. Chronic renal failure.Blood sugar 183-100 mg/dL.H/H 8.6/.Adjust insulin dose.PT and OT.If d/c ed,f/u 2 wks. at 1407 [facility] #:[id number] OF REPORTPRProgress aacr9294-38-20H49:06:00G.[id number] VAvailable for patient sgkjKHBOYAUXMHTZPX5953-33-29S69:08:41 [facility] 2022-09-24 10:48:00 [id number] KkI u5tSGNRk+EcjLdSEzLZlktAdvOUgMFdAV1575-97-48 T10:48:00 [facility] ([facility])Rehab Discharge SummaryREPORT#:[id number] REPORT STATUS: SignedDATE:09/24/22 TIME: 1048 PATIENT: KARMA ROWLAND UNIT #: [id number]#: [id number] [address] [birth year] AGE: 56 SEX: M ATTEND: Mj Vences [facility] AUTHOR: Guero Candelaria * ALL edits or [...] Result Date Time Pulse Ox 97 09/24 000 B/P 160/81 / 000 B/P Mean 107.5 / 000 O2 Delivery Room air 09/24 8 Temp 97.9 / 0009 Pulse 87 09/24 0009 Resp 16 09/24 000 O2 Flow Rate 2 09/08 1322 PATIENT [...] homans neg), BUE 5/5, LLE4/5, R hip 3-Neuro/CONTRACT RUNNER: alert, oriented X 3, CNII-XII intact Functional [...] wPlan of CareAdditional Discharge Routines: PCP Follow-Up, Receiver Dispatcher Follow-UpDiet: DiabeticActivity: As ToleratedPrescriptions: e-prescribeDischarge management: greater than 30 mins Follow-up AppointmentsPCP: PCP: No Primary or Family Physician PCP follow up timeframe: In 1-2 weeksConsulting provider 1: Provider 1: Barrera Ramírez MD Specialty: Nephrology Lyxjvwgewr provider 2: Provider 2: Napoleon Parham MD Specialty: CardiologyInterventional Gsmuuwhbcu provider 3: Provider 3: Nixon Leroy MD Specialty: Orthopaedic Surgery at 0507 RPT #:[id number] OF REPORTDSDischarge bswjtsg7461-93-14P34:48:00G.[id number] 97AVAvailable for patient zbbrCFTEFXYDAYYKQN5991-56-43H99:08:27 [facility] 2022-09-24 10:31:00 [id number] 1uz xgOyZnBI36h3gv6+P5KCPWP2gzmy2gm046961-49-22 T10:31:00 [facility] (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 Chart reviewed. No new symptoms, feeling well. Denies chest pain, palpitations, or shortness of breath. Discharge planning fortoday. Objective GeneralVS/I O:24 hour I O ending at 0700: 09/24 0700 05/02 1900 Intake Total 240 Output [...] urinary catheterLower extremity: LE assessment: edema, normal temperatureNeuro/CONTRACT RUNNER: alert, oriented X 3 Considered stroke alert: [...] (1.80 - 2.40 mg/dL) 2.18 Laboratory Tests 05 0540 Hematology WBC (4.5 - 11.0 x10 [...] % (Auto) (14.0 - 32.0 %) 14.8 [place] % (Auto) (4.8 - 9.0 %) 7.6 Eos % (Auto) (0.3 - 3.7 %) 3.0 Baso % (Auto) (0.0 - 2.0 %) 0.0 Neut # (Auto) (2.0 - 7.6 x10 3/uL) 9.62 H Lymph # (Auto) (1.0 - 3.8 x10 3/uL) 1.93 [place] # (Auto) (0.1 - 0.8 x10 3/uL) [...] will follow. at 1818 at 1655 RPT #:[id number] OF REPORTPRProgress uxmv1000-84-94W58:31:00G.[id number] VAvailable for patient pcnmAFTLSPUPOXKSHM1293-25-10H30:19:12 [facility] 2022-09-24 08:06:00 [id number]H1n9 uvz mATJNsBDWpJcPa6E6wNLKP9qkkvWKlDtM3731-34-48 T08:06:00 [facility] Progress NoteREPORT#:[id number] REPORT STATUS: SignedDATE:09/24/22 TIME: 08 PATIENT: KARMA ROWLAND UNIT #: [id number]#: [id number] [address] AGE: 56 SEX: M ATTEND: [...] hospitalist, infectious disease, podiatry at 0807 RPT #:[id number] OF REPORTPRProgress zhks5449-11-82B19:06:00G.RTWI96688024-0021Y VAvailable for patient nqvlAZEFKRPOOJLANI9117-36-23U85:07:38 [facility] 2022-09-24 08:04:00 [id number]/udsV00dfGB+Sgu60VX mNg l61bBCwDeVcp/QfnLg191nZ7cHWMSSFls6255-40-26 T08:04:00 [facility]Hospitalist Progress NoteREPORT#:[id number] REPORT STATUS: SignedDATE:09/24/22 TIME: 0804 PATIENT: KARMA ROWLAND UNIT #: [id number]#: [id number] [address] AGE: 56 SEX: M ATTEND: [...] thigh), moves all, normal capillary refillMusculoskeletal: normal inspectionNeuro/CONTRACT RUNNER: alert, oriented X 3, 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 Considered [...] % (Auto) (14.0 - 32.0 %) 14.8 [place] % (Auto) (4.8 - 9.0 %) 7.6 Eos % (Auto) (0.3 - 3.7 %) 3.0 Baso % (Auto) (0.0 - 2.0 %) 0.0 Neut # (Auto) (2.0 - 7.6 x10 3/uL) 9.62 H Lymph # (Auto) (1.0 - 3.8 x10 3/uL) 1.93 [place] # (Auto) (0.1 - 0.8 x10 3/uL) [...] continue prn BP meds at 1459 RPT #:[id number] OF REPORTPRProgress huqe8342-27-60X41:04:00G.XNVY53790144-9253F VAvailable for patient byouQUKKTEYNNFBTVW6463-67-23Y48:00:26 [facility] 2022-09-24 06:58:00 [id number]s2zU JYA a5y9HrapF67xIacqnqbA8vDXoUTtSI54W9997-55-91 T06:58:00 [facility] HospitalNephrology Progress NoteREPORT#:[id number] REPORT STATUS: SignedDATE:09/24/22 TIME: 06 PATIENT: KARMA ROWLAND UNIT #: [id number]#: [id number] [address] AGE: 56 SEX: M ATTEND: Mj Vences [facility] AUTHOR: Barrera Ramírez MD * ALL edits [...] non-tender, no edemaMusculoskeletal: no CVA tenderness, no tendernessNeuro/CONTRACT RUNNER: alert, 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 Considered stroke alert: noSkin: [...] - 32.0 %) 9.6 L 11.3 L [place] % (Auto) (4.8 - 9.0 %) 4.5 L 5.7 Eos % (Auto) (0.3 - 3.7 %) 0.1 L 0.2 L Baso % (Auto) (0.0 - 2.0 %) 0.1 0.0 Neut # (Auto) (2.0 - 7.6 x10 3/uL) 10.02 H 9.79 H Lymph # (Auto) (1.0 - 3.8 x10 3/uL) 1.13 1.35 [place] # (Auto) (0.1 - 0.8 x10 3/uL) [...] hospitalist, infectious disease, podiatry at 0948 RPT #:[id number] OF REPORTPRProgress bujm8287-33-60K92:58:00G.WCQT76085588-3846Q VAvailable for patient fljgQSNSACAZIPBOJF3110-23-60L30:48:34 [facility] 2022-09-23 19:59:00 [id number]+/x38E/FEwF/o uE2 hsWcePIJRotgd5yIO7ATfB/4PyhmOxI9C9190-03-86 T19:59:00 [facility])Podiatry Progress NoteREPORT#:[id number] REPORT STATUS: SignedDATE:09/23/22 TIME: 1958 PATIENT: KARMA ROWLAND UNIT #: [id number]#: [id number] [address] AGE: 56 SEX: M ATTEND: [...] (Auto) (14.0 - 32.0 %) 9.6 L [place] % (Auto) (4.8 - 9.0 %) 4.5 L Eos % (Auto) (0.3 - 3.7 %) 0.1 L Baso % (Auto) (0.0 - 2.0 %) 0.1 Neut # (Auto) (2.0 - 7.6 x10 3/uL) 10.02 H Lymph # (Auto) (1.0 - 3.8 x10 3/uL) 1.13 [place] # (Auto) (0.1 - 0.8 x10 3/uL) [...] hospitalist, infectious disease, podiatry at 1959 RPT #:[id number] OF REPORTPRProgress spwh0756-20-66A51:59:00G.TRFX50499177-9970A VAvailable for patient uienORIRCFIUUOUUIP4866-24-77G29:00:10 [facility] 2022-09-23 15:10:00 [id number]/L731yZqt6BaSGZ CCl BRFp8Buqq0A6ROnyxRTFao8mRa6qqpm6G3663-35-01 T15:10:00 [facility] ([facility])Pain Management Progress NoteREPORT#:[id number] REPORT STATUS: SignedDATE:09/23/22 TIME: 1510 PATIENT: KARMA ROWLAND UNIT #: [id number]#: [id number] [address] AGE: 56 SEX: M ATTEND: Mj Vences AUTHOR: Ben Klein * ALL edits or amendments must be made on the electronic/computer document * Ben Klein 09/23/22 1510:SubjectiveChief complaint:Patient seen and examined. Chart/MAR reviewed. Patient [...] moves all, no edema, pedal pulses, right BKANeuro/CONTRACT RUNNER: 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, no sensory deficits, CNII-XII grossly intact Considered stroke alert: noSkin: dry, intact, no rashLymphatics: axilla normalPsychiatry: normal affect, normal judgment/insight ResultsFindings/data:Laboratory Tests: 09/23 09/23 09/23 09/23 09/22 1050 0516 0502 0331 1841Chemistry Sodium (134 - 147 mEq/L) [...] (Auto) (14.0 - 32.0 %) 9.6 L [place] % (Auto) (4.8 - 9.0 %) 4.5 L Eos % (Auto) (0.3 - 3.7 %) 0.1 L Baso % (Auto) (0.0 - 2.0 %) 0.1 Neut # (Auto) (2.0 - 7.6 x10 3/uL) 10.02 H Lymph # (Auto) (1.0 - 3.8 x10 3/uL) 1.13 [place] # (Auto) (0.1 - 0.8 x10 3/uL) [...] to comorbid conditions-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 every 4 hours [...] pain , gabapentin 100mg q8h sent to [facility][id number] [facility] [place] [address] [address]) Patient has [...] whom agrees. Thank you for the consultation. 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 I personally developed the care plan, which was continued by the mid-level provider. I was immediately available. at 1512 at 1320 RPT #:[id number] OF REPORTPRProgress znrs8892-13-49J98:10:00G.QTUX13103163-9156Q VAvailable for patient dclbFUANCRCYYUUNSC0700-06-96G73:12:54 [facility] 2022-09-23 14:49:00 [id number]+i22p/b60SaAB8Rb Ginny Wkz6ToNVMb4fzRagkBsobClzRpzL1FFYH2596-53-91 T14:49:00 [facility])Endocrinology Progress NoteREPORT#:[id number] REPORT STATUS: SignedDATE:09/23/22 TIME: 1449 PATIENT: KARMA ROWLAND UNIT #: [id number]#: [id number] [address] AGE: 56 SEX: M ATTEND: Mj Vences MDADM AUTHOR: Braxton Chapin MD * ALL edits or amendments must be made on the electronic/computer document * SubjectivePatient reports: no complaints Objective GeneralVS:Last Documented: Result Date Time Pulse Ox 98 09/23 0725 B/P 149/69 09/23 07 B/P Mean 95.3 09/23 0725 Temp 36.3 [...] (Auto) (14.0 - 32.0 %) 9.6 L [place] % (Auto) (4.8 - 9.0 %) 4.5 L Eos % (Auto) (0.3 - 3.7 %) 0.1 L Baso % (Auto) (0.0 - 2.0 %) 0.1 Neut # (Auto) (2.0 - 7.6 x10 3/uL) 10.02 H Lymph # (Auto) (1.0 - 3.8 x10 3/uL) 1.13 [place] # (Auto) (0.1 - 0.8 x10 3/uL) [...] (Auto) (14.0 - 32.0 %) 11.3 L [place] % (Auto) (4.8 - 9.0 %) 5.7 Eos % (Auto) (0.3 - 3.7 %) 0.2 L Baso % (Auto) (0.0 - 2.0 %) 0.0 Neut # (Auto) (2.0 - 7.6 x10 3/uL) 9.79 H Lymph # (Auto) (1.0 - 3.8 x10 3/uL) 1.35 [place] # (Auto) (0.1 - 0.8 x10 3/uL) [...] (Auto) (14.0 - 32.0 %) 11.3 L [place] % (Auto) (4.8 - 9.0 %) 5.3 Eos % (Auto) (0.3 - 3.7 %) 0.2 L Baso % (Auto) (0.0 - 2.0 %) 0.1 Neut # (Auto) (2.0 - 7.6 x10 3/uL) 10.70 H Lymph # (Auto) (1.0 - 3.8 x10 3/uL) 1.47 [place] # (Auto) (0.1 - 0.8 x10 3/uL) [...] 09/20 09/20 09/20 09/19 1140 0922 0505 2817 1921Chemistry Sodium (134 - 147 mEq/L) 136 [...] (Auto) (14.0 - 32.0 %) 13.0 L [place] % (Auto) (4.8 - 9.0 %) 6.2 Eos % (Auto) (0.3 - 3.7 %) 0.2 L Baso % (Auto) (0.0 - 2.0 %) 0.1 Neut # (Auto) (2.0 - 7.6 x10 3/uL) 9.84 H Lymph # (Auto) (1.0 - 3.8 x10 3/uL) 1.60 [place] # (Auto) (0.1 - 0.8 x10 3/uL) [...] % (Auto) (14.0 - 32.0 %) 16.5 [place] % (Auto) (4.8 - 9.0 %) 8.4 Eos % (Auto) (0.3 - 3.7 %) 2.4 Baso % (Auto) (0.0 - 2.0 %) 0.2 Neut # (Auto) (2.0 - 7.6 x10 3/uL) 9.50 H Lymph # (Auto) (1.0 - 3.8 x10 3/uL) 2.19 [place] # (Auto) (0.1 - 0.8 x10 3/uL) [...] % (Auto) (14.0 - 32.0 %) 17.4 [place] % (Auto) (4.8 - 9.0 %) 6.9 Eos % (Auto) (0.3 - 3.7 %) 0.1 L Baso % (Auto) (0.0 - 2.0 %) 0.1 Neut # (Auto) (2.0 - 7.6 x10 3/uL) 7.91 H Lymph # (Auto) (1.0 - 3.8 x10 3/uL) 1.85 [place] # (Auto) (0.1 - 0.8 x10 3/uL) [...] (Auto) (14.0 - 32.0 %) 10.2 L [place] % (Auto) (4.8 - 9.0 %) 2.9 L Eos % (Auto) (0.3 - 3.7 %) 0.0 L Baso % (Auto) (0.0 - 2.0 %) 0.1 Neut # (Auto) (2.0 - 7.6 x10 3/uL) 7.58 Lymph # (Auto) (1.0 - 3.8 x10 3/uL) 0.91 L [place] # (Auto) (0.1 - 0.8 x10 3/uL) [...] % (Auto) (14.0 - 32.0 %) 18.6 [place] % (Auto) (4.8 - 9.0 %) 6.7 Eos % (Auto) (0.3 - 3.7 %) 0.2 L Baso % (Auto) (0.0 - 2.0 %) 0.1 Neut # (Auto) (2.0 - 7.6 x10 3/uL) 6.99 Lymph # (Auto) (1.0 - 3.8 x10 3/uL) 1.77 [place] # (Auto) (0.1 - 0.8 x10 3/uL) [...] 09/15 09/15 09/15 09/15 1640 1304 1154 0586 Chemistry POC Glucose (70 - 110 MG/DL) 137 H 126 H 309 H Urines Urine Color (YEL/STRAW) YELLOW Urine Appearance (CLEAR) SL CLOUDY Urine pH (5.0 - 7.0) 5.0 Ur Specific [place] (1.005 - 1.030) 1.013 Urine Protein (NEGATIVE) [...] (Auto) (14.0 - 32.0 %) 11.3 L [place] % (Auto) (4.8 - 9.0 %) 3.2 L Eos % (Auto) (0.3 - 3.7 %) 0.0 L Baso % (Auto) (0.0 - 2.0 %) 0.1 Neut # (Auto) (2.0 - 7.6 x10 3/uL) 7.35 Lymph # (Auto) (1.0 - 3.8 x10 3/uL) 0.98 L [place] # (Auto) (0.1 - 0.8 x10 3/uL) [...] (Auto) (14.0 - 32.0 %) 13.9 L [place] % (Auto) (4.8 - 9.0 %) 5.1 Eos % (Auto) (0.3 - 3.7 %) 0.0 L Baso % (Auto) (0.0 - 2.0 %) 0.1 Neut # (Auto) (2.0 - 7.6 x10 3/uL) 7.58 Lymph # (Auto) (1.0 - 3.8 x10 3/uL) 1.31 [place] # (Auto) (0.1 - 0.8 x10 3/uL) [...] Laboratory Tests: 09/13 09/13 09/13 09/12 1105 5502 2611 2016 Chemistry Sodium (134 - 147 mEq/L) [...] (Auto) (14.0 - 32.0 %) 10.4 L [place] % (Auto) (4.8 - 9.0 %) 3.5 L Eos % (Auto) (0.3 - 3.7 %) 0.0 L Baso % (Auto) (0.0 - 2.0 %) 0.1 Neut # (Auto) (2.0 - 7.6 x10 3/uL) 8.34 H Lymph # (Auto) (1.0 - 3.8 x10 3/uL) 1.02 [place] # (Auto) (0.1 - 0.8 x10 3/uL) [...] % (Auto) (14.0 - 32.0 %) 15.0 [place] % (Auto) (4.8 - 9.0 %) 7.9 Eos % (Auto) (0.3 - 3.7 %) 3.8 H Baso % (Auto) (0.0 - 2.0 %) 0.3 Neut # (Auto) (2.0 - 7.6 x10 3/uL) 6.34 Lymph # (Auto) (1.0 - 3.8 x10 3/uL) 1.31 [place] # (Auto) (0.1 - 0.8 x10 3/uL) [...] % (Auto) (14.0 - 32.0 %) 16.1 [place] % (Auto) (4.8 - 9.0 %) 9.1 H Eos % (Auto) (0.3 - 3.7 %) 5.6 H Baso % (Auto) (0.0 - 2.0 %) 0.5 Neut # (Auto) (2.0 - 7.6 x10 3/uL) 5.35 Lymph # (Auto) (1.0 - 3.8 x10 3/uL) 1.27 [place] # (Auto) (0.1 - 0.8 x10 3/uL) [...] % (Auto) (14.0 - 32.0 %) 15.5 [place] % (Auto) (4.8 - 9.0 %) 8.5 Eos % (Auto) (0.3 - 3.7 %) 5.5 H Baso % (Auto) (0.0 - 2.0 %) 0.4 Neut # (Auto) (2.0 - 7.6 x10 3/uL) 5.94 Lymph # (Auto) (1.0 - 3.8 x10 3/uL) 1.33 [place] # (Auto) (0.1 - 0.8 x10 3/uL) [...] % (Auto) (14.0 - 32.0 %) 16.1 [place] % (Auto) (4.8 - 9.0 %) 9.2 H Eos % (Auto) (0.3 - 3.7 %) 4.7 H Baso % (Auto) (0.0 - 2.0 %) 0.4 Neut # (Auto) (2.0 - 7.6 x10 3/uL) 6.38 Lymph # (Auto) (1.0 - 3.8 x10 3/uL) 1.49 [place] # (Auto) (0.1 - 0.8 x10 3/uL) [...] (Auto) (14.0 - 32.0 %) 13.7 L [place] % (Auto) (4.8 - 9.0 %) 7.2 Eos % (Auto) (0.3 - 3.7 %) 4.8 H Baso % (Auto) (0.0 - 2.0 %) 0.3 Neut # (Auto) (2.0 - 7.6 x10 3/uL) 6.64 Lymph # (Auto) (1.0 - 3.8 x10 3/uL) 1.24 [place] # (Auto) (0.1 - 0.8 x10 3/uL) [...] 1515 IMPRESSION: Minimal bibasilar pulmonary opacitiesImpression By: RajO Cr Mares M.D. Laboratory Tests: 09/04 09/04 [...] Anemia7. Chronic renal failure.Blood sugar 217-231 mg/dL.H/H 8.11/17.Adjust insulin dose.PT and OT. at 1452 RPT #:[id number] OF REPORTPRProgress hrpn5298-66-64J69:49:00G.YHLI22624936-9872T VAvailable for patient iuqtXCXWRNLHSZYIDW8415-01-20L75:52:39 [facility] 2022-09-23 14:48:00 [id number]tveG5w bOw 3SQQ5bDlNVJNxQE3ogZFeaXf0S3ZEcx+ T14:48:00 [facility] HospitalRehab Team ConferenceREPORT#:[id number] REPORT STATUS: SignedDATE:09/23/22 TIME: 1448 PATIENT: KARMA ROWLAND UNIT #: [id number]#: [id number] [address] AGE: 56 SEX: M ATTEND: Mj Vences AUTHOR: Mj Vences MD * ALL edits or amendments must be made on the electronic/computer document * Rehabilitation Team Conference Weekly Team ConferenceTeam conf information:Date of conference: 09/23/22Conference type: InterimConference scribe: Columba Drew PTA INTERDISCIPLINARY TEAM MEETING PARTICIPANTS: TITLE NAME MD Mj Vences MD RN Cornelio Roberson, RN PT Anthony Ro, PT OT Williams Mckeon OT CM/TERESA Sinclair, TRINO ST NO ATTENDEE [facility] Amanda Lai, TERRAZZO INSTALLER Staff (8) NO ATTENDEE Staff (9) NO [...] team conference update: CONTINENT OF BOWEL LBM 09/22. CAMARENA CATHETER DRAINING WELL W/O KINKS INTERDISCIPLINARY TEAM UPDATES: LYDIA team conference update: PT IS AOX4 SPEECH CLEAR. EXPRESSES WANTS AND NEEDS. ROOM AIR. CONTINENT OF BOWEL LBM 09/22. CAMARENA CATHETER DRAINING WELL W/O KINKS. STAND [...] Twelve steps discharge goal: Med cond/safety concern [place] 150 feet discharge goal: Independent (6) Goal [...] stay criteriaSee my note at 1449 RPT #:[id number] OF REPORTCLClinical hphr1599-31-71G37:48:00G.DFKH79591561-0613L VAvailable for patient bxfuISRTGKBWCJJYPJ4620-29-19B70:49:37 [facility] 2022-09-23 14:25:00 [id number]+QI56QZWFU Zy7 qTW9D0oFUFqy2wSx0kKblFVetIkp2Uhf58803-58-49 T14:25:00 [facility] ([facility])Infectious Dis. Progress NoteREPORT#:[id number] REPORT STATUS: SignedDATE:09/23/22 TIME: 1425 PATIENT: KARMA ROWLAND UNIT #: [id number]#: [id number] [address] AGE: 56 SEX: M ATTEND: Mj Vences MDADM AUTHOR: Anthony Curtis MD * ALL edits [...] Documented: Result Date Time Pulse Ox 98 05/ 0725 B/P 149/69 / 0725 B/P Mean 95.3 09/23 0725 Temp 97.3 09/23 0725 Pulse 88 09/23 0725 Resp 17 09/23 0725 O2 Delivery Room air 09/22 2310 O2 Flow Rate 2 09/08 1322 Vital Signs: Date Time Temp Pulse Resp B/P B/P Pulse O2 O2 Flow FiO2 Mean Ox Delivery Rate 09/23 724 97.3 88 17 149/69 95.3 98 09/22 [...] right BKA Left foot wound +dressing in placeNeuro/CONTRACT RUNNER: alert, oriented X 3 Considered stroke alert: [...] then monitor off antimicrobials.-Continue supportive care. at 1426 RPT #:[id number] OF REPORTPRProgress npay8100-89-59X43:25:00G.VXWF02658311-3364U VAvailable for patient pdqpMAKZUTTQGLMRGW3451-87-01D81:26:43 [facility] 2022-09-23 13:51:00 [id number]+hcRpmsY30+mANvgB3j YlY MRYMKYXr+aqcji0tfRz4Kq13rxaf/Z0Hp4009-45-70 T13:51:00 [facility] ([facility])Cardiology Progress NoteREPORT#:[id number] REPORT STATUS: SignedDATE:09/23/22 TIME: 1351 PATIENT: KARMA ROWLAND UNIT #: [id number]#: [id number] [address] AGE: 56 SEX: M ATTEND: Mj Vences MDADM AUTHOR: Rohit Benitez MACHINIST APPRENTICE WOOD * ALL edits or amendments must be [...] Flow FiO2 Mean Ox Delivery Rate 09/23 724 97.3 88 17 149/69 95.3 98 09/22 [...] urinary catheterLower extremity: LE assessment: edema, normal temperatureNeuro/CONTRACT RUNNER: alert, oriented X 3 Considered stroke alert: [...] (Auto) (14.0 - 32.0 %) 9.6 L [place] % (Auto) (4.8 - 9.0 %) 4.5 L Eos % (Auto) (0.3 - 3.7 %) 0.1 L Baso % (Auto) (0.0 - 2.0 %) 0.1 Neut # (Auto) (2.0 - 7.6 x10 3/uL) 10.02 H Lymph # (Auto) (1.0 - 3.8 x10 3/uL) 1.13 [place] # (Auto) (0.1 - 0.8 x10 3/uL) [...] ofcare discussed with patient, RN and Dr. Parahm. 09/05: Patient responded well to IV Lasix, [...] Will follow. at 1648 at 1655 RPT #:[id number] OF REPORTPRProgress tucj7018-55-32B57:51:00G.GSHT68200948-7941N VAvailable for patient pxqlWPKOBGZQEHDNFP9768-35-02C62:04:51 [facility] 2022-09-23 10:57:00 [id number]7lps atH aR7IL+fiZl7Jw4vO8JOvmShK9lW1R3Pt16457-15-73 T10:57:00 [facility] HospitalHospitalist Progress NoteREPORT#:[id number] REPORT STATUS: SignedDATE:09/23/22 TIME: 1057 PATIENT: KARMA ROWLAND UNIT #: [id number]#: [id number] [address] AGE: 56 SEX: M ATTEND: Mj Vences [facility] AUTHOR: Wilbert Ramires MD * ALL edits [...] thigh), moves all, normal capillary refillMusculoskeletal: normal inspectionNeuro/CONTRACT RUNNER: alert, oriented X 3, 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 Considered [...] (Auto) (14.0 - 32.0 %) 9.6 L [place] % (Auto) (4.8 - 9.0 %) 4.5 L Eos % (Auto) (0.3 - 3.7 %) 0.1 L Baso % (Auto) (0.0 - 2.0 %) 0.1 Neut # (Auto) (2.0 - 7.6 x10 3/uL) 10.02 H Lymph # (Auto) (1.0 - 3.8 x10 3/uL) 1.13 [place] # (Auto) (0.1 - 0.8 x10 3/uL) [...] - continue to trend at 0806 RPT #:[id number] OF REPORTPRProgress qfrr7185-42-81I44:57:00G.FDZZ41395364-4348S VAvailable for patient wuayWMOCJKLPRPZRCI7315-93-29P57:07:18 [facility] 2022-09-23 10:13:00 [id number]YqyjsG Edu 10yaTJq/zyOBNq3k7bI+Ui4jNfGtkvum57909-71-57 T10:13:00 [facility])Gastroenterology Progress NoteREPORT#:[id number] REPORT STATUS: SignedDATE:09/23/22 TIME: 1013 PATIENT: KARMA ROWLAND UNIT #: [id number]#: [id number] [address] AGE: 56 SEX: M ATTEND: Mj Vences [facility] AUTHOR: Kassie Avitia MD * ALL edits [...] hospitalist, infectious disease, podiatry at 1014 RPT #:[id number] OF REPORTPRProgress qhae4279-65-65J16:13:00G.CVEC16738451-2668L VAvailable for patient hqjeKDHYHYENSQMMPO3076-76-92S33:15:03 [facility] 2022-09-23 08:22:00 [id number]/3tmGRSOPVzBjtFktM8 uQF AQ8CGrAX83Jl7UDGw03Ss/VoT46ms8ZbN1809-99-47 T08:22:00 [facility])Rehab Progress NoteREPORT#:[id number] REPORT STATUS: SignedDATE:09/23/22 TIME: 821 PATIENT: KARMA ROWLAND UNIT #: [id number]#: [id number] [address] AGE: 56 SEX: M ATTEND: Mj Vences [facility] AUTHOR: Mj Vences MD * ALL edits or amendments must be made on the electronic/computer document * SubjectiveChief complaint:Rehab follow-upPatient doing well, making good progressBKA without bleedingEdema improvingEating 75-100% at bedside+ BMDenies CARRASCO/N/V/D/CP14 systems reviewed and neg. except that above.History [...] homans neg), BUE 5/5, LLE4/5, R hip 3-Neuro/CONTRACT RUNNER: alert, oriented X 3, CNII-XII intact ResultsFindings/Data:Laboratory [...] (Auto) (14.0 - 32.0 %) 9.6 L [place] % (Auto) (4.8 - 9.0 %) 4.5 L Eos % (Auto) (0.3 - 3.7 %) 0.1 L Baso % (Auto) (0.0 - 2.0 %) 0.1 Neut # (Auto) (2.0 - 7.6 x10 3/uL) 10.02 H Lymph # (Auto) (1.0 - 3.8 x10 3/uL) 1.13 [place] # (Auto) (0.1 - 0.8 x10 3/uL) [...] fasciitisS/p surgical debridement and washout4/6: S/p right SATHYAA-Dr. Greenberggnificant impairment in self-care, [...] 16.7 dietary consultation, protein supplements to promote icyznxt-Dzqwrfdm-F9h 14, tight glycemia control- endocrine on board, insulin adjustments-Endocrinology, ID, podiatry, cardiology, IM consulted-Pain management adjusting pain medications-Anemia, patient required multiple units of PRBCs on acute, FOBT positive-IV Protonix-consult GI-serial H H-no evidence of gross bleeding-discussed with Dr. TrinidadLctbwhua-Uwddctmbeuxh-pezzusylt fbojgbvq-IYA-ukmabt-CW Senokot and MiraLAX, DSP-MRSA OF NARES on [...] of LLE-negative for DVT-Joan wrap dressing and rczeatkcc-Avognc-jfjskuegzs 8.3, 7.7, 8.2, 7.6, 8, 7.7 transfused [...] 306, bloodcount 11.8-as per renal-Nutritional indices improved-Right YCE-ffertar-vxjmtkev resolved, dressings changed today-no bleeding after heparin [...] with interdisciplinary treatment plan. at 1448 RPT #:[id number] OF REPORTPRProgress [id number]:22:00G.[id number] VAvailable for patient kksrAOXXCUNXUTTUFD5901-68-10K78:49:17 [facility] 2022-09-23 07:17:00 [id number]+A 11W bPbd8jJFUI3j03G9zZvuVmQHYReeGOa5h3265-28-75 T07:17:00 [facility] ([facility])Nephrology Progress NoteREPORT#:[id number] REPORT STATUS: SignedDATE:09/23/22 TIME: 716 PATIENT: KARMA ROWLAND UNIT #: [id number]#: [id number] [address] AGE: 56 SEX: M ATTEND: Mj Vences [facility] AUTHOR: Barrera Ramírez MD * ALL edits [...] 24 hour I O ending at 0700: /02 0700 09/22 1900 Intake Total 240 1000 [...] non-tender, no edemaMusculoskeletal: no CVA tenderness, no tendernessNeuro/CONTRACT RUNNER: alert, 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 Considered stroke alert: noSkin: [...] %) 9.6 L 11.3 L 11.3 L [place] % (Auto) (4.8 - 9.0 %) 4.5 L 5.7 5.3 Eos % (Auto) (0.3 - 3.7 %) 0.1 L 0.2 L 0.2 L Baso % (Auto) (0.0 - 2.0 %) 0.1 0.0 0.1 Neut # (Auto) (2.0 - 7.6 x10 3/uL) 10.02 H 9.79 H 10.70 H Lymph # (Auto) (1.0 - 3.8 x10 3/uL) 1.13 1.35 1.47 [place] # (Auto) (0.1 - 0.8 x10 3/uL) [...] x10 3/uL) 0.00 0.00 0.00 Laboratory Tests 09/23 09/23 09/22 [...] (Auto) (14.0 - 32.0 %) 9.6 L [place] % (Auto) (4.8 - 9.0 %) 4.5 L Eos % (Auto) (0.3 - 3.7 %) 0.1 L Baso % (Auto) (0.0 - 2.0 %) 0.1 Neut # (Auto) (2.0 - 7.6 x10 3/uL) 10.02 H Lymph # (Auto) (1.0 - 3.8 x10 3/uL) 1.13 [place] # (Auto) (0.1 - 0.8 x10 3/uL) [...] hospitalist, infectious disease, podiatry at 0930 RPT #:[id number] OF REPORTPRProgress khck2541-60-70C65:17:00G.[id number] VAvailable for patient kdowECCSEPFKHVZXJM3470-71-37P63:30:54 [facility] 2022-09-22 20:43:00 [id number] GW0 Ni6CNXSZqCGYKIjqiRNmBokMH/FjU1+Yn6825-69-11 T20:43:00 [facility])Podiatry Progress NoteREPORT#:[id number] REPORT STATUS: SignedDATE:09/22/22 TIME: 2042 PATIENT: KARMA ROWLAND UNIT #: [id number]#: [id number] [address] AGE: 56 SEX: M ATTEND: [...] (Auto) (14.0 - 32.0 %) 11.3 L [place] % (Auto) (4.8 - 9.0 %) 5.7 Eos % (Auto) (0.3 - 3.7 %) 0.2 L Baso % (Auto) (0.0 - 2.0 %) 0.0 Neut # (Auto) (2.0 - 7.6 x10 3/uL) 9.79 H Lymph # (Auto) (1.0 - 3.8 x10 3/uL) 1.35 [place] # (Auto) (0.1 - 0.8 x10 3/uL) [...] cardiology, endocrinology, hospitalist, infectious disease, podiatry at 2046 RPT #:[id number] OF REPORTPRProgress xzgo8769-46-49H35:43:00G.[id number] VAvailable for patient amhyZUKVRVZMJWPZEL2163-08-58B89:46:26 [facility] 2022-09-22 17:39:00 [id number] [facility] fTdcO2yl+VAgpWRtcVXY8Q1XdpT0u0pp35087-44-81 T17:39:00 [facility])Endocrinology Progress NoteREPORT#:[id number] REPORT STATUS: SignedDATE:09/22/22 TIME: 1739 PATIENT: KARMA ROWLAND UNIT #: [id number]#: [id number] [address] AGE: 56 SEX: M ATTEND: [...] Peptide (0 - 100 PG/ML) 251.0 H 09/226 2047 Chemistry Sodium (134 - 147 mEq/L) [...] (Auto) (14.0 - 32.0 %) 11.3 L [place] % (Auto) (4.8 - 9.0 %) 5.7 Eos % (Auto) (0.3 - 3.7 %) 0.2 L Baso % (Auto) (0.0 - 2.0 %) 0.0 Neut # (Auto) (2.0 - 7.6 x10 3/uL) 9.79 H Lymph # (Auto) (1.0 - 3.8 x10 3/uL) 1.35 [place] # (Auto) (0.1 - 0.8 x10 3/uL) [...] (Auto) (14.0 - 32.0 %) 11.3 L [place] % (Auto) (4.8 - 9.0 %) 5.3 Eos % (Auto) (0.3 - 3.7 %) 0.2 L Baso % (Auto) (0.0 - 2.0 %) 0.1 Neut # (Auto) (2.0 - 7.6 x10 3/uL) 10.70 H Lymph # (Auto) (1.0 - 3.8 x10 3/uL) 1.47 [place] # (Auto) (0.1 - 0.8 x10 3/uL) [...] (Auto) (14.0 - 32.0 %) 13.0 L [place] % (Auto) (4.8 - 9.0 %) 6.2 Eos % (Auto) (0.3 - 3.7 %) 0.2 L Baso % (Auto) (0.0 - 2.0 %) 0.1 Neut # (Auto) (2.0 - 7.6 x10 3/uL) 9.84 H Lymph # (Auto) (1.0 - 3.8 x10 3/uL) 1.60 [place] # (Auto) (0.1 - 0.8 x10 3/uL) [...] % (Auto) (14.0 - 32.0 %) 16.5 [place] % (Auto) (4.8 - 9.0 %) 8.4 Eos % (Auto) (0.3 - 3.7 %) 2.4 Baso % (Auto) (0.0 - 2.0 %) 0.2 Neut # (Auto) (2.0 - 7.6 x10 3/uL) 9.50 H Lymph # (Auto) (1.0 - 3.8 x10 3/uL) 2.19 [place] # (Auto) (0.1 - 0.8 x10 3/uL) [...] % (Auto) (14.0 - 32.0 %) 17.4 [place] % (Auto) (4.8 - 9.0 %) 6.9 Eos % (Auto) (0.3 - 3.7 %) 0.1 L Baso % (Auto) (0.0 - 2.0 %) 0.1 Neut # (Auto) (2.0 - 7.6 x10 3/uL) 7.91 H Lymph # (Auto) (1.0 - 3.8 x10 3/uL) 1.85 [place] # (Auto) (0.1 - 0.8 x10 3/uL) [...] H 273 H 09/17 09/16 09/16 0450 [id number] Chemistry Sodium (134 - 147 mEq/L) 136 [...] (Auto) (14.0 - 32.0 %) 10.2 L [place] % (Auto) (4.8 - 9.0 %) 2.9 L Eos % (Auto) (0.3 - 3.7 %) 0.0 L Baso % (Auto) (0.0 - 2.0 %) 0.1 Neut # (Auto) (2.0 - 7.6 x10 3/uL) 7.58 Lymph # (Auto) (1.0 - 3.8 x10 3/uL) 0.91 L [place] # (Auto) (0.1 - 0.8 x10 3/uL) [...] % (Auto) (14.0 - 32.0 %) 18.6 [place] % (Auto) (4.8 - 9.0 %) 6.7 Eos % (Auto) (0.3 - 3.7 %) 0.2 L Baso % (Auto) (0.0 - 2.0 %) 0.1 Neut # (Auto) (2.0 - 7.6 x10 3/uL) 6.99 Lymph # (Auto) (1.0 - 3.8 x10 3/uL) 1.77 [place] # (Auto) (0.1 - 0.8 x10 3/uL) [...] pH (5.0 - 7.0) 5.0 Ur Specific [place] (1.005 - 1.030) 1.013 Urine Protein (NEGATIVE) [...] (Auto) (14.0 - 32.0 %) 11.3 L [place] % (Auto) (4.8 - 9.0 %) 3.2 L Eos % (Auto) (0.3 - 3.7 %) 0.0 L Baso % (Auto) (0.0 - 2.0 %) 0.1 Neut # (Auto) (2.0 - 7.6 x10 3/uL) 7.35 Lymph # (Auto) (1.0 - 3.8 x10 3/uL) 0.98 L [place] # (Auto) (0.1 - 0.8 x10 3/uL) [...] 09/14 09/14 09/14 09/14 09/13 1130 0736 0531 0527 1937Chemistry Sodium (134 - 147 mEq/L) 132 [...] (Auto) (14.0 - 32.0 %) 13.9 L [place] % (Auto) (4.8 - 9.0 %) 5.1 Eos % (Auto) (0.3 - 3.7 %) 0.0 L Baso % (Auto) (0.0 - 2.0 %) 0.1 Neut # (Auto) (2.0 - 7.6 x10 3/uL) 7.58 Lymph # (Auto) (1.0 - 3.8 x10 3/uL) 1.31 [place] # (Auto) (0.1 - 0.8 x10 3/uL) [...] H Laboratory Tests: 09/13 09/13 09/13 09/12 1100 0208 9080 2016 Chemistry Sodium (134 - 147 mEq/L) [...] (Auto) (14.0 - 32.0 %) 10.4 L [place] % (Auto) (4.8 - 9.0 %) 3.5 L Eos % (Auto) (0.3 - 3.7 %) 0.0 L Baso % (Auto) (0.0 - 2.0 %) 0.1 Neut # (Auto) (2.0 - 7.6 x10 3/uL) 8.34 H Lymph # (Auto) (1.0 - 3.8 x10 3/uL) 1.02 [place] # (Auto) (0.1 - 0.8 x10 3/uL) [...] % (Auto) (14.0 - 32.0 %) 15.0 [place] % (Auto) (4.8 - 9.0 %) 7.9 Eos % (Auto) (0.3 - 3.7 %) 3.8 H Baso % (Auto) (0.0 - 2.0 %) 0.3 Neut # (Auto) (2.0 - 7.6 x10 3/uL) 6.34 Lymph # (Auto) (1.0 - 3.8 x10 3/uL) 1.31 [place] # (Auto) (0.1 - 0.8 x10 3/uL) [...] % (Auto) (14.0 - 32.0 %) 16.1 [place] % (Auto) (4.8 - 9.0 %) 9.1 H Eos % (Auto) (0.3 - 3.7 %) 5.6 H Baso % (Auto) (0.0 - 2.0 %) 0.5 Neut # (Auto) (2.0 - 7.6 x10 3/uL) 5.35 Lymph # (Auto) (1.0 - 3.8 x10 3/uL) 1.27 [place] # (Auto) (0.1 - 0.8 x10 3/uL) [...] % (Auto) (14.0 - 32.0 %) 15.5 [place] % (Auto) (4.8 - 9.0 %) 8.5 Eos % (Auto) (0.3 - 3.7 %) 5.5 H Baso % (Auto) (0.0 - 2.0 %) 0.4 Neut # (Auto) (2.0 - 7.6 x10 3/uL) 5.94 Lymph # (Auto) (1.0 - 3.8 x10 3/uL) 1.33 [place] # (Auto) (0.1 - 0.8 x10 3/uL) [...] % (Auto) (14.0 - 32.0 %) 16.1 [place] % (Auto) (4.8 - 9.0 %) 9.2 H Eos % (Auto) (0.3 - 3.7 %) 4.7 H Baso % (Auto) (0.0 - 2.0 %) 0.4 Neut # (Auto) (2.0 - 7.6 x10 3/uL) 6.38 Lymph # (Auto) (1.0 - 3.8 x10 3/uL) 1.49 [place] # (Auto) (0.1 - 0.8 x10 3/uL) [...] (Auto) (14.0 - 32.0 %) 13.7 L [place] % (Auto) (4.8 - 9.0 %) 7.2 Eos % (Auto) (0.3 - 3.7 %) 4.8 H Baso % (Auto) (0.0 - 2.0 %) 0.3 Neut # (Auto) (2.0 - 7.6 x10 3/uL) 6.64 Lymph # (Auto) (1.0 - 3.8 x10 3/uL) 1.24 [place] # (Auto) (0.1 - 0.8 x10 3/uL) [...] By: TipRG17 - Roger Parra M.D.UL[facility]ASOUND [facility] VEIN UNI/LTD 09/05 1146 Report Impression [...] insulin dose.PT and OT. at 1740 RPT #:[id number] OF REPORTPRProgress amwa4240-02-75Y69:39:00G.[id number] VAvailable for patient ppdhVEARIRNAHFJRXW1996-04-73R94:40:36 [facility] 2022-09-22 14:43:00 [id number]BhIX [facility] nGhXdnEarIyO63rzeVar0NnNoG1TDtNXX3167-55-79 T14:43:00 [facility] ([facility])Infectious Dis. 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 Denies acute or new complaints. No major overnight events. Objective GeneralVS/I O:Vital SignsDate Temp Pulse Resp B/P B/P Mean Pulse Ox SnN136/-09/22 97.3-99.0 81-90 14-20 122-179/64-88 83.1-118.4 96-98 Last Documented: Result Date Time Pulse Ox 96 / 1844 B/P 122/64 05/ 1844 B/P Mean 83.1 05/ 1844 O2 Delivery Room air 09/22 1844 Temp 97.9 05/ 1844 Pulse 90 / 1844 Resp 16 [...] right BKA Left foot wound +dressing in placeNeuro/CONTRACT RUNNER: alert, oriented X 3 Considered stroke alert: [...] off antimicrobials.-Continue supportive care. at 2010 RPT #:[id number] OF REPORTPRProgress aome1997-44-25X91:43:00G.BCVP52827827-2361C VAvailable for patient bhyrIOMATZGGFEWEPR7033-75-43V10:11:32 [facility] 2022-09-22 13:59:00 [id number]+j4h3k5y /tn nwTzcIRB9XyBF2PkQYKW4yAbv3DUIswkt3074-35-11 T13:59:00 [facility] ([facility])Pain Management Progress NoteREPORT#:[id number] REPORT STATUS: SignedDATE:09/22/22 TIME: 135 PATIENT: KARMA ROWLAND UNIT #: [id number]#: [id number] [address] [birth year] AGE: 56 SEX: M ATTEND: Mj Vences [facility] AUTHOR: Ben Klein * ALL edits or [...] Pulse Resp B/P B/P Mean Pulse Ox PaR710/30-09/22 36.3-36.7 80-90 14-20 155-179/76-88 102.5-118.4 97-98 Last Documented: Result Date Time Pulse Ox 97 09/22 0708 B/P 158/80 09/22 0708 B/P Mean 106.1 09/22 0708 O2 Delivery Room air 09/22 0708 Temp 36.6 09/22 0708 Pulse 89 09/22 0708 Resp 18 09/22 0708 O2 Flow Rate 2 09/08 1322 24 hour I O ending at 0700: 09/22 0700 04 1900 Intake Total Output Total 2100 Balance -2100 Number 1 Bowel Movements Number 0 Incontinent Voids Number Voids 0 Output, Urine 2099 PATIENT WEIGHT: Weight (lb): 167Weight (oz): 12.35Weight [...] moves all, no edema, pedal pulses, right BKANeuro/CONTRACT RUNNER: 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, no sensory deficits, CNII-XII [...] (Auto) (14.0 - 32.0 %) 11.3 L [place] % (Auto) (4.8 - 9.0 %) 5.7 Eos % (Auto) (0.3 - 3.7 %) 0.2 L Baso % (Auto) (0.0 - 2.0 %) 0.0 Neut # (Auto) (2.0 - 7.6 x10 3/uL) 9.79 H Lymph # (Auto) (1.0 - 3.8 x10 3/uL) 1.35 [place] # (Auto) (0.1 - 0.8 x10 3/uL) [...] to comorbid conditions-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 every 4 hours [...] pain , gabapentin 100mg q8h sent to [facility][id number] [facility] [place] [address] [address]) Patient has [...] whom agrees. Thank you for the consultation. 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 I personally developed the care plan, which was continued by the mid-level provider. I was immediately available. at 1400 at 0642 RPT #:[id number] OF REPORTPRProgress axmd5048-78-44J69:59:00G.OFYN28892313-0900R VAvailable for patient oczpEVSCOHLGLVTOUC3207-82-58I28:00:41 [facility] 2022-09-22 12:46:00 [id number]mQXk AQW AzEeLz12USELbCgYIYq6456YJX04FOq/H6257-67-80 T12:46:00 [facility] ([facility])Gastroenterology Progress NoteREPORT#:[id number] REPORT STATUS: SignedDATE:09/22/22 TIME: 1246 PATIENT: KARMA ROWLAND UNIT #: [id number]#: [id number] [address] [birth year] AGE: 56 SEX: M ATTEND: [...] hospitalist, infectious disease, podiatry at 1247 RPT #:[id number] OF REPORTPRProgress gqix4069-71-56O53:46:00G.SCMW58960346-0862C VAvailable for patient lgjwVTIEIDYSCEUFWE5209-60-49P32:47:53 [facility] 2022-09-22 10:45:00 [id number]+6oElmisZP uuD KLrRw0WCnHx3cwGNM6NEWK5TrK3ZxOrd47626-63-31 T10:45:00 [facility] ([facility])Cardiology Progress NoteREPORT#:[id number] REPORT STATUS: SignedDATE:09/22/22 TIME: 1045 PATIENT: KAMRA ROWLAND UNIT #: [id number]#: [id number] [address] AGE: 56 SEX: M ATTEND: Mj Venecs AUTHOR: Rohit Benitez MACHINIST APPRENTICE WOOD * ALL edits or amendments must be [...] urinary catheterLower extremity: LE assessment: edema, normal temperatureNeuro/CONTRACT RUNNER: alert, oriented X 3 Considered stroke alert: [...] H 167 H 162 H Laboratory Tests 09/22 0436 Hematology [...] (Auto) (14.0 - 32.0 %) 11.3 L [place] % (Auto) (4.8 - 9.0 %) 5.7 Eos % (Auto) (0.3 - 3.7 %) 0.2 L Baso % (Auto) (0.0 - 2.0 %) 0.0 Neut # (Auto) (2.0 - 7.6 x10 3/uL) 9.79 H Lymph # (Auto) (1.0 - 3.8 x10 3/uL) 1.35 [place] # (Auto) (0.1 - 0.8 x10 3/uL) [...] will follow. at 1848 at 1655 RPT #:[id number] OF REPORTPRProgress jsgp0860-83-42D22:45:00G.[id number] VAvailable for patient dmfgEZVDSMPFLENSTA1698-12-89Z98:48:21 [facility] 2022-09-22 09:57:00 [id number]crEB wAB Oda7bVE95MmVTi2PEzJ+4ee5uPU95RBCC6020-29-15 T09:57:00 [facility])Rehab Progress NoteREPORT#:[id number] REPORT STATUS: SignedDATE:09/22/22 TIME: 09 PATIENT: KARMA ROWLAND UNIT #: [id number]#: [id number] [address] [birth year] AGE: 56 SEX: M ATTEND: [facility]j Vences [facility] AUTHOR: Mj Vences MD * ALL edits or amendments must be made on the electronic/computer document * SubjectiveChief complaint:Rehab follow-upFall last night without injuryStates edema improvingEating 75-100% at bedside+ BMDenies CARRASCO/N/V/D/CP14 systems reviewed and neg. except that above.History [...] physicians. Pt iswilling and able to partici- kahtleen in 3 hr/day inpt rehab to d/c home safely. Pt's prior level of function was independent. Objective GeneralVS:Vital Signs: Date Time Temp Pulse Resp B/P B/P Pulse O2 O2 Flow FiO2 Mean Ox Delivery Rate 09/22 0708 97.9 89 18 158/80 106.1 97 Room air 09/22 0036 97.3 81 14 155/76 102.5 97 Room air 09/218 86 169/86 114.0 98 Room air 09/21 [...] homans neg), BUE 5/5, LLE4/5, R hip 3-Neuro/CONTRACT RUNNER: alert, oriented X 3, CNII-XII intact ResultsFindings/Data:Laboratory [...] (Auto) (14.0 - 32.0 %) 11.3 L [place] % (Auto) (4.8 - 9.0 %) 5.7 Eos % (Auto) (0.3 - 3.7 %) 0.2 L Baso % (Auto) (0.0 - 2.0 %) 0.0 Neut # (Auto) (2.0 - 7.6 x10 3/uL) 9.79 H Lymph # (Auto) (1.0 - 3.8 x10 3/uL) 1.35 [place] # (Auto) (0.1 - 0.8 x10 3/uL) [...] 16.7 dietary consultation, protein supplements to promote qwjbmsv-Xyctavhs-L1i 14, tight glycemia control- endocrine on board, insulin adjustments-Endocrinology, ID, podiatry, cardiology, IM consulted-Pain management adjusting pain medications-Anemia, patient required multiple units of PRBCs on acute, FOBT positive-IV Protonix-consult GI-serial H H-no evidence of gross bleeding-discussed with Dr. Jidmyder-Exttgolvarto-wvpqxnzeh abxgvghm-KUF-pyipqv-CW Senokot and MiraLAX, DSP-MRSA OF NARES on [...] of LLE-negative for DVT-Joan wrap dressing and vjloepmog-Sulqje-yepbbnjaaq 8.3, 7.7, 8.2, 7.6, 8, 7.7 transfused [...] video capsule endoscopy as outpatient-Nutritional indices improved-Right KTZ-hbepzmp-ywetuqld resolved, dressings changed today-no bleeding after heparin [...] Agree with interdisciplinary treatment plan. at 1527 RPT #:[id number] OF REPORTPRProgress vzbi4531-92-56Q07:57:00G.[id number] VAvailable for patient ihqwFAHEHKUGTKNRMU7128-30-95K81:27:59 [facility] 2022-09-22 07:30:00 [id number]/BQmhsutM4RXAN3Jy7V93L PBe HWb6UUo9zghdFgTMFgqTDc0LIViwfJskp9720-51-87 T07:30:00 [facility] ([facility])Nephrology Progress NoteREPORT#:[id number] REPORT STATUS: SignedDATE:09/22/22 TIME: 729 PATIENT: KARMA ROWLAND UNIT #: [id number]#: [id number] ROOM/BED: [facility]-1DOB: [birth year] AGE: 56 SEX: M ATTEND: Mj Vences [facility] AUTHOR: Barrera Ramírez MD * ALL edits [...] 24 hour I O ending at 0700: 05/ 0700 09/21 1900 Intake Total Output Total [...] non-tender, no edemaMusculoskeletal: no CVA tenderness, no tendernessNeuro/CONTRACT RUNNER: alert, 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 Considered stroke alert: noSkin: [...] 5.0 H Magnesium (1.80 - 2.40 mg/dL) 2.09/20 1140 0922 0505 0458 1921 Chemistry Sodium [...] %) 11.3 L 11.3 L 13.0 L [place] % (Auto) (4.8 - 9.0 %) 5.7 5.3 6.2 Eos % (Auto) (0.3 - 3.7 %) 0.2 L 0.2 L 0.2 L Baso % (Auto) (0.0 - 2.0 %) 0.0 0.1 0.1 Neut # (Auto) (2.0 - 7.6 x10 3/uL) 9.79 H 10.70 H 9.84 H Lymph # (Auto) (1.0 - 3.8 x10 3/uL) 1.35 1.47 1.60 [place] # (Auto) (0.1 - 0.8 x10 3/uL) [...] (Auto) (14.0 - 32.0 %) 11.3 L [place] % (Auto) (4.8 - 9.0 %) 5.7 Eos % (Auto) (0.3 - 3.7 %) 0.2 L Baso % (Auto) (0.0 - 2.0 %) 0.0 Neut # (Auto) (2.0 - 7.6 x10 3/uL) 9.79 H Lymph # (Auto) (1.0 - 3.8 x10 3/uL) 1.35 [place] # (Auto) (0.1 - 0.8 x10 3/uL) [...] hospitalist, infectious disease, podiatry at 0947 RPT #:[id number] OF REPORTPRProgress nfdg6886-20-23B88:30:00G.RMOL72302703-4023F VAvailable for patient tflkCBFYAFWMBIPCID4963-33-44K17:50:22 [facility] 2022-09-22 07:17:00 [id number]/V8t9zLwZ3zkRsxO4EdxQQID1xur Y ZFezWEbt2HrdhtDQVVt1CyLNgbnDAnfCE5046-63-22 T07:17:00 [facility] ([facility])Hospitalist Progress NoteREPORT#:[id number] REPORT STATUS: SignedDATE:09/22/22 TIME: 716 PATIENT: KARMA ROWLAND UNIT #: [id number]#: [id number] [address] [birth year] AGE: 56 SEX: M ATTEND: Mj Vences [facility] AUTHOR: Wilbert Ramires MD * ALL edits [...] 81 14 155/76 102.5 97 Room air 09/218 86 169/86 114.0 98 Room air 09/21 210 87 171/86 114.5 98 Room air 09/21 [...] thigh), moves all, normal capillary refillMusculoskeletal: normal inspectionNeuro/CONTRACT RUNNER: alert, oriented X 3, 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 Considered [...] (Auto) (14.0 - 32.0 %) 11.3 L [place] % (Auto) (4.8 - 9.0 %) 5.7 Eos % (Auto) (0.3 - 3.7 %) 0.2 L Baso % (Auto) (0.0 - 2.0 %) 0.0 Neut # (Auto) (2.0 - 7.6 x10 3/uL) 9.79 H Lymph # (Auto) (1.0 - 3.8 x10 3/uL) 1.35 [place] # (Auto) (0.1 - 0.8 x10 3/uL) [...] to adjust medscardio following at 1102 RPT #:[id number] OF REPORTPRProgress nmaq0448-23-69Z56:17:00G.[id number] VAvailable for patient etwjWHOIWPVMIYCBUZ4140-43-32E77:03:24 [facility] 2022-09-21 20:34:00 [id number]/zTtveCtIcd5Vle+F5fJagL WwK DiOvLvpRxTtAJlVF2sNfhC82j1ugdRrut9196-09-05 T20:34:00 [facility] NoteRE[facility]#:[id number] REPORT STATUS: SignedDATE:09/21/22 TIME: 2033 PATIENT: KARMA ROWLAND UNIT #: [id number]#: [id number] [address] AGE: 56 SEX: M ATTEND: [...] (Auto) (14.0 - 32.0 %) 11.3 L [place] % (Auto) (4.8 - 9.0 %) 5.3 Eos % (Auto) (0.3 - 3.7 %) 0.2 L Baso % (Auto) (0.0 - 2.0 %) 0.1 Neut # (Auto) (2.0 - 7.6 x10 3/uL) 10.70 H Lymph # (Auto) (1.0 - 3.8 x10 3/uL) 1.47 [place] # (Auto) (0.1 - 0.8 x10 3/uL) [...] (Auto) (14.0 - 32.0 %) 13.0 L [place] % (Auto) (4.8 - 9.0 %) 6.2 Eos % (Auto) (0.3 - 3.7 %) 0.2 L Baso % (Auto) (0.0 - 2.0 %) 0.1 Neut # (Auto) (2.0 - 7.6 x10 3/uL) 9.84 H Lymph # (Auto) (1.0 - 3.8 x10 3/uL) 1.60 [place] # (Auto) (0.1 - 0.8 x10 3/uL) [...] % (Auto) (14.0 - 32.0 %) 16.5 [place] % (Auto) (4.8 - 9.0 %) 8.4 Eos % (Auto) (0.3 - 3.7 %) 2.4 Baso % (Auto) (0.0 - 2.0 %) 0.2 Neut # (Auto) (2.0 - 7.6 x10 3/uL) 9.50 H Lymph # (Auto) (1.0 - 3.8 x10 3/uL) 2.19 [place] # (Auto) (0.1 - 0.8 x10 3/uL) [...] % (Auto) (14.0 - 32.0 %) 17.4 [place] % (Auto) (4.8 - 9.0 %) 6.9 Eos % (Auto) (0.3 - 3.7 %) 0.1 L Baso % (Auto) (0.0 - 2.0 %) 0.1 Neut # (Auto) (2.0 - 7.6 x10 3/uL) 7.91 H Lymph # (Auto) (1.0 - 3.8 x10 3/uL) 1.85 [place] # (Auto) (0.1 - 0.8 x10 3/uL) [...] (Auto) (14.0 - 32.0 %) 10.2 L [place] % (Auto) (4.8 - 9.0 %) 2.9 L Eos % (Auto) (0.3 - 3.7 %) 0.0 L Baso % (Auto) (0.0 - 2.0 %) 0.1 Neut # (Auto) (2.0 - 7.6 x10 3/uL) 7.58 Lymph # (Auto) (1.0 - 3.8 x10 3/uL) 0.91 L [place] # (Auto) (0.1 - 0.8 x10 3/uL) [...] % (Auto) (14.0 - 32.0 %) 18.6 [place] % (Auto) (4.8 - 9.0 %) 6.7 Eos % (Auto) (0.3 - 3.7 %) 0.2 L Baso % (Auto) (0.0 - 2.0 %) 0.1 Neut # (Auto) (2.0 - 7.6 x10 3/uL) 6.99 Lymph # (Auto) (1.0 - 3.8 x10 3/uL) 1.77 [place] # (Auto) (0.1 - 0.8 x10 3/uL) [...] pH (5.0 - 7.0) 5.0 Ur Specific [place] (1.005 - 1.030) 1.013 Urine Protein (NEGATIVE) [...] (Auto) (14.0 - 32.0 %) 11.3 L [place] % (Auto) (4.8 - 9.0 %) 3.2 L Eos % (Auto) (0.3 - 3.7 %) 0.0 L Baso % (Auto) (0.0 - 2.0 %) 0.1 Neut # (Auto) (2.0 - 7.6 x10 3/uL) 7.35 Lymph # (Auto) (1.0 - 3.8 x10 3/uL) 0.98 L [place] # (Auto) (0.1 - 0.8 x10 3/uL) [...] Tests: 09/14 09/14 09/14 09/14 09/13 1130 0748 0507 0552 1938Chemistry Sodium (134 - 147 mEq/L) 132 L [...] (Auto) (14.0 - 32.0 %) 13.9 L [place] % (Auto) (4.8 - 9.0 %) 5.1 Eos % (Auto) (0.3 - 3.7 %) 0.0 L Baso % (Auto) (0.0 - 2.0 %) 0.1 Neut # (Auto) (2.0 - 7.6 x10 3/uL) 7.58 Lymph # (Auto) (1.0 - 3.8 x10 3/uL) 1.31 [place] # (Auto) (0.1 - 0.8 x10 3/uL) [...] (Auto) (14.0 - 32.0 %) 10.4 L [place] % (Auto) (4.8 - 9.0 %) 3.5 L Eos % (Auto) (0.3 - 3.7 %) 0.0 L Baso % (Auto) (0.0 - 2.0 %) 0.1 Neut # (Auto) (2.0 - 7.6 x10 3/uL) 8.34 H Lymph # (Auto) (1.0 - 3.8 x10 3/uL) 1.02 [place] # (Auto) (0.1 - 0.8 x10 3/uL) [...] % (Auto) (14.0 - 32.0 %) 15.0 [place] % (Auto) (4.8 - 9.0 %) 7.9 Eos % (Auto) (0.3 - 3.7 %) 3.8 H Baso % (Auto) (0.0 - 2.0 %) 0.3 Neut # (Auto) (2.0 - 7.6 x10 3/uL) 6.34 Lymph # (Auto) (1.0 - 3.8 x10 3/uL) 1.31 [place] # (Auto) (0.1 - 0.8 x10 3/uL) [...] % (Auto) (14.0 - 32.0 %) 16.1 [place] % (Auto) (4.8 - 9.0 %) 9.1 H Eos % (Auto) (0.3 - 3.7 %) 5.6 H Baso % (Auto) (0.0 - 2.0 %) 0.5 Neut # (Auto) (2.0 - 7.6 x10 3/uL) 5.35 Lymph # (Auto) (1.0 - 3.8 x10 3/uL) 1.27 [place] # (Auto) (0.1 - 0.8 x10 3/uL) [...] % (Auto) (14.0 - 32.0 %) 15.5 [place] % (Auto) (4.8 - 9.0 %) 8.5 Eos % (Auto) (0.3 - 3.7 %) 5.5 H Baso % (Auto) (0.0 - 2.0 %) 0.4 Neut # (Auto) (2.0 - 7.6 x10 3/uL) 5.94 Lymph # (Auto) (1.0 - 3.8 x10 3/uL) 1.33 [place] # (Auto) (0.1 - 0.8 x10 3/uL) [...] % (Auto) (14.0 - 32.0 %) 16.1 [place] % (Auto) (4.8 - 9.0 %) 9.2 H Eos % (Auto) (0.3 - 3.7 %) 4.7 H Baso % (Auto) (0.0 - 2.0 %) 0.4 Neut # (Auto) (2.0 - 7.6 x10 3/uL) 6.38 Lymph # (Auto) (1.0 - 3.8 x10 3/uL) 1.49 [place] # (Auto) (0.1 - 0.8 x10 3/uL) [...] (Auto) (14.0 - 32.0 %) 13.7 L [place] % (Auto) (4.8 - 9.0 %) 7.2 Eos % (Auto) (0.3 - 3.7 %) 4.8 H Baso % (Auto) (0.0 - 2.0 %) 0.3 Neut # (Auto) (2.0 - 7.6 x10 3/uL) 6.64 Lymph # (Auto) (1.0 - 3.8 x10 3/uL) 1.24 [place] # (Auto) (0.1 - 0.8 x10 3/uL) [...] By: TipRG17 - Roger Parra M.D.[facility]OUND [facility] VEIN UNI/LTD 09/05 1146 Report Impression - Status: SIGNED Entered: 09/05/2022 1333 IMPRESSION: 1. No evidence of deep vein thrombosis. 2. Complex heterogeneous hypoechoic fluid collection in the left calf region measuring 8.4 x 2.8 x 2.5 cm; there is no internal vascularity or peripheral hyperemia. May represent a hematoma.Impression By: TipAB53 Cr Ga M.D.RADIOLOGY - XR CHEST 1 V [...] Sepsis5. Prostate abscess.6. AnemiaBlood sugar 148-170 mg/dL.H/H 8.6/26.Adjust insulin dose.PT and OT. at 2035 [facility] #:[id number] OF REPORTPRProgress ulbs3580-29-77N27:34:00G.CVYV31906187-8976U VAvailable for patient ukksHSGXFVCTGXFUUX2755-78-22B73:35:53 [facility] 2022-09-21 19:23:00 [id number]ZhVt qmQ IfjgrRe4K8YdrNCTo+u/DP5dG54ExXAVN3702-17-40 T19:23:00 [facility] ([facility])Cardiology Progress NoteREPORT#:[id number] REPORT STATUS: SignedDATE:09/21/22 TIME: 1922 PATIENT: KARMA ROWLAND UNIT #: [id number]#: [id number] [address] AGE: 56 SEX: M ATTEND: Mj Vences [facility] AUTHOR: Napoleon Parham MD * ALL edits [...] urinary catheterLower extremity: LE assessment: edema, normal temperatureNeuro/CONTRACT RUNNER: alert, oriented X 3 Considered stroke alert: [...] Magnesium (1.80 - 2.40 mg/dL) 2.06 09/20 1958 Chemistry POC Glucose (70 - 110 MG/DL) [...] (Auto) (14.0 - 32.0 %) 11.3 L [place] % (Auto) (4.8 - 9.0 %) 5.3 Eos % (Auto) (0.3 - 3.7 %) 0.2 L Baso % (Auto) (0.0 - 2.0 %) 0.1 Neut # (Auto) (2.0 - 7.6 x10 3/uL) 10.70 H Lymph # (Auto) (1.0 - 3.8 x10 3/uL) 1.47 [place] # (Auto) (0.1 - 0.8 x10 3/uL) [...] regimenper nephrology, supportive care, will follow. at 7177 RPT #:[id number] OF REPORTPRProgress xkvw1593-83-12F78:23:00G.[id number] VAvailable for patient cmdxYCGVAGNHEZBGRG5310-21-30Z99:25:37 [facility] 2022-09-21 13:11:00 [id number]OEzp [place] YyEIBxUrohPCR9YAx8uFu5GFDxE/G3TWO8747-90-27 T13:11:00 [facility])Gastroenterology Progress NoteREPORT#:[id number] REPORT STATUS: SignedDATE:09/21/22 TIME: 131 PATIENT: KRAMA ROWLAND UNIT #: [id number]#: [id number] [address] AGE: 56 SEX: M ATTEND: [...] endocrinology, hospitalist, infectious disease, podiatry at [address] [facility] #:[id number] OF REPORTPRProgress netd9963-92-94U04:11:00G.VFGN25423607-1654J VAvailable for patient vjavYJFSCDTTECEOOR2369-60-19H13:12:37 [facility] 2022-09-21 11:24:00 [id number]+BsJaiZ5 [place]ia dJpLu8stXNYSgVs/0paGDBNHkS1mcCd9X9625-73-37 T11:24:00 [facility] ([facility])Pain Management Progress NoteREPORT#:[id number] REPORT STATUS: SignedDATE:09/21/22 TIME: 112 PATIENT: KARMA ROWLAND UNIT #: [id number]#: [id number] [address] AGE: 56 SEX: M ATTEND: Mj Vences [facility] AUTHOR: Ben Klein * ALL edits or [...] Pulse Resp B/P B/P Mean Pulse Ox XdL912/-09/21 36.3-36.6 80-88 14-18 148-168/79-84 102.3-112.0 97-98 Last [...] moves all, no edema, pedal pulses, right BKANeuro/CONTRACT RUNNER: 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, no sensory deficits, CNII-XII [...] (Auto) (14.0 - 32.0 %) 11.3 L [place] % (Auto) (4.8 - 9.0 %) 5.3 Eos % (Auto) (0.3 - 3.7 %) 0.2 L Baso % (Auto) (0.0 - 2.0 %) 0.1 Neut # (Auto) (2.0 - 7.6 x10 3/uL) 10.70 H Lymph # (Auto) (1.0 - 3.8 x10 3/uL) 1.47 [place] # (Auto) (0.1 - 0.8 x10 3/uL) [...] to comorbid conditions-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 every 4 hours [...] pain , gabapentin 100mg q8h sent to [facility]/pharmacy #[id number] [address], [place] [address] [address] Patient has [...] whom agrees. Thank you for the consultation. 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:-database searched, no information found Kingsley Ng 10/08/22 2230:Attestations Physician AttestationAgree w/findings plan:The patient was seen and examined by Ben Klein. I personally developed the care plan, which was continued by the mid-level provider. I was immediately available. at 1129 at 2231 RPT #:[id number] OF REPORTPRProgress yjmb6995-11-18Y38:24:00G.HSNZ74305471-1142M VAvailable for patient lqkgWCJSMKDPDOQKHJ4708-72-82K87:29:38 [facility] 2022-09-21 10:32:00 [id number]8Z2K jSE vipyzZx+eEJmMau+VlRpVP/Vbg4oTH63n7761-87-53 T10:32:00 [facility] Progress NoteREPORT#:[id number] REPORT STATUS: SignedDATE:09/21/22 TIME: 1032 PATIENT: KARMA ROWLAND UNIT #: [id number]#: [id number] [address] AGE: 56 SEX: M ATTEND: Mj Vences [facility] AUTHOR: Wilbert Ramires MD * ALL edits [...] thigh), moves all, normal capillary refillMusculoskeletal: normal inspectionNeuro/CONTRACT RUNNER: alert, oriented X 3, 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 Considered [...] (Auto) (14.0 - 32.0 %) 11.3 L [place] % (Auto) (4.8 - 9.0 %) 5.3 Eos % (Auto) (0.3 - 3.7 %) 0.2 L Baso % (Auto) (0.0 - 2.0 %) 0.1 Neut # (Auto) (2.0 - 7.6 x10 3/uL) 10.70 H Lymph # (Auto) (1.0 - 3.8 x10 3/uL) 1.47 [place] # (Auto) (0.1 - 0.8 x10 3/uL) [...] continue to adjust meds at 1402 RPT #:[id number] OF REPORTPRProgress wxqy8054-79-12U16:32:00G.KRJO85805036-7318M VAvailable for patient ghqpNVYEYVEVMMKNHQ5455-03-33Y83:02:41 [facility] 2022-09-21 10:25:00 [id number]/3eD/Xp veZ G8E8drsX6HCEapuXQxYNvbeNLiD7IKUdW7864-08-04 T10:25:00 [facility] ([facility])Podiatry Progress NoteREPORT#:[id number] REPORT STATUS: SignedDATE:09/21/22 TIME: 1025 PATIENT: KARMA ROWLAND UNIT #: [id number]#: [id number] [address] AGE: 56 SEX: M ATTEND: Mj Vences AUTHOR: Francisco Singh DPJude * ALL edits or amendments must [...] Result Date Time Pulse Ox 98 09/21 714 B/P 148/79 09/21 714 B/P Mean 102.3 09/21 714 Temp 97.9 09/21 714 Pulse 80 09/21 714 Resp 16 09/21 714 O2 Delivery Room air 09/20 2321 O2 [...] Tests: 09/21 09/21 09/20 09/20 0530 0500 1951 7020Ghemistry Sodium (134 - 147 mEq/L) 137 Potassium [...] (Auto) (14.0 - 32.0 %) 11.3 L [place] % (Auto) (4.8 - 9.0 %) 5.3 Eos % (Auto) (0.3 - 3.7 %) 0.2 L Baso % (Auto) (0.0 - 2.0 %) 0.1 Neut # (Auto) (2.0 - 7.6 x10 3/uL) 10.70 H Lymph # (Auto) (1.0 - 3.8 x10 3/uL) 1.47 [place] # (Auto) (0.1 - 0.8 x10 3/uL) [...] Dr. Pedersen will follow at 1720 RPT #:[id number] OF REPORTPRProgress cyqv9983-42-02L17:25:00G.[id number] VAvailable for patient xewbGKBLGIYHFWWIZV9105-05-04X50:21:06 [facility] 2022-09-21 07:39:00 [id number]+/qQwC4SdP0 Prema z/ux7i4Q2ZAg0X2i46Bflo56jgnU5yG+f0716-74-03 T07:39:00 [facility] ([facility])Nephrology Progress NoteREPORT#:[id number] REPORT STATUS: SignedDATE:09/21/22 TIME: 0739 PATIENT: KARMA ROWLAND UNIT #: [id number]#: [id number] [address] [birth year] AGE: 56 SEX: M ATTEND: Mj Vences [facility] AUTHOR: Barrera Ramírez MD * ALL edits [...] non-tender, no edemaMusculoskeletal: no CVA tenderness, no tendernessNeuro/CONTRACT RUNNER: alert, 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 Considered stroke alert: noSkin: [...] 32.0 %) 11.3 L 13.0 L 16.5 [place] % (Auto) (4.8 - 9.0 %) 5.3 6.2 8.4 Eos % (Auto) (0.3 - 3.7 %) 0.2 L 0.2 L 2.4 Baso % (Auto) (0.0 - 2.0 %) 0.1 0.1 0.2 Neut # (Auto) (2.0 - 7.6 x10 3/uL) 10.70 H 9.84 H 9.50 H Lymph # (Auto) (1.0 - 3.8 x10 3/uL) 1.47 1.60 2.19 [place] # (Auto) (0.1 - 0.8 x10 3/uL) [...] (Auto) (14.0 - 32.0 %) 11.3 L [place] % (Auto) (4.8 - 9.0 %) 5.3 Eos % (Auto) (0.3 - 3.7 %) 0.2 L Baso % (Auto) (0.0 - 2.0 %) 0.1 Neut # (Auto) (2.0 - 7.6 x10 3/uL) 10.70 H Lymph # (Auto) (1.0 - 3.8 x10 3/uL) 1.47 [place] # (Auto) (0.1 - 0.8 x10 3/uL) [...] hospitalist, infectious disease, podiatry at 1247 RPT #:[id number] OF REPORTPRProgress mqmv0413-42-11Y95:39:00G.[id number] VAvailable for patient uyhbUIBBODBMPWCHFK2955-72-19Y51:47:15 [facility] 2022-09-21 06:03:00 [id number]Be7z RBJ CXbXW+dek1gTvxH8tZSZXzcgNaDJRgyIC2927-04-49 T06:03:00 [facility])Rehab Progress NoteREPORT#:[id number] REPORT STATUS: SignedDATE:09/21/22 TIME: 06 PATIENT: KARMA ROWLAND UNIT #: [id number]#: [id number] [address] [birth year] AGE: 56 SEX: M ATTEND: Mj Vences MDADM AUTHOR: Guero Candelaria * ALL edits or amendments must be made on the electronic/computer document * SubjectiveChief complaint:Rehab follow-upDoing betterStates edema improvingEating 75-100% at bedside+ BMDenies CARRASCO/N/V/D/CP14 systems reviewed and neg. except that above.History [...] O2 Flow FiO2 Mean Ox Delivery Rate 09/201 97.3 84 14 161/79 105.9 98 Room [...] homans neg), BUE 5/5, LLE4/5, R hip 3-Neuro/CONTRACT RUNNER: alert, oriented X 3, CNII-XII intact ResultsFindings/Data:Laboratory [...] (14.0 - 32.0 %) 13.0 L 16.5 [place] % (Auto) (4.8 - 9.0 %) 6.2 8.4 Eos % (Auto) (0.3 - 3.7 %) 0.2 L 2.4 Baso % (Auto) (0.0 - 2.0 %) 0.1 0.2 Neut # (Auto) (2.0 - 7.6 x10 3/uL) 9.84 H 9.50 H Lymph # (Auto) (1.0 - 3.8 x10 3/uL) 1.60 2.19 [place] # (Auto) (0.1 - 0.8 x10 3/uL) [...] surgical debridement and washout4/6: S/p right BKA-Dr. JuarezSignificant impairment in self-care, ADLs and functional mobilityImpaired [...] than 5, dietaryconsultation, protein supplements to promote zhupujz-Idnludrh-O2i 14, tight glycemia control- endocrine on board, insulin adjustments-Endocrinology, ID, podiatry, cardiology, IM consulted-Pain management adjusting pain medications-Anemia, patient required multiple units of PRBCs on acute, FOBT positive-IV Protonix-consult GI-serial H H-no evidence of gross bleeding-discussed with Dr. TrinidadNhtaxgym-Wqltexiydgam-xtqbjlhca ksfeasng-LWF-tsfpox-CW Senokot and MiraLAX, DSP-MRSA OF NARES on [...] of LLE-negative for DVT-Joan wrap dressing and ppyxueqbc-Atqgjg-pmtkctvdrn 8.3, 7.7, 8.2, 7.6, 8 transfused 2 [...] 09/24 as per ID-Lasix as per nephrology-Completed Ciua-Axnckf-5/21: Echo-EF 55-60%, indeterminate diastolic function parameters as per cardio-BP continues to be elevated, Hydralazine increased to 75 mg TID, cont Metoprolol to 25 mg BID-BS better but likely to increase with re-initiation of steroids x3 days startedby Nephrology for AIN-Endo adjusting insulin-Car transfer training 09/23-BUN climbing, but creatinine improving. Diuretics per renal-Check labs 09/21-Advance therapies as tolerated-discussed treatment plan with patient and -Right LBX-oyivsql-fjnlwzph resolved, dressings changed today-no bleeding after heparin [...] with interdisciplinary treatment plan. at 1650 RPT #:[id number] OF REPORTPRProgress uave9128-67-70D91:03:00G.[id number] VAvailable for patient qqdfOBAZPHFJNPDMHL6539-98-29U07:51:10 [facility] 2022-09-20 18:00:00 [id number]qykd X4M BK4JINdPfA119qhODydlfBOOW16Eo8Bh90217-35-98 T18:00:00 [facility] ([facility])Cardiology Progress NoteREPORT#:[id number] REPORT STATUS: SignedDATE:09/20/22 TIME: 1800 PATIENT: KARMA ROWLAND UNIT #: [id number]#: [id number] [address] [birth year] AGE: 56 SEX: M ATTEND: Mj Vences [facility] AUTHOR: Napoleon Parham MD * ALL edits [...] urinary catheterLower extremity: LE assessment: edema, normal temperatureNeuro/CONTRACT RUNNER: alert, oriented X 3 Considered stroke alert: [...] (Auto) (14.0 - 32.0 %) 13.0 L [place] % (Auto) (4.8 - 9.0 %) 6.2 Eos % (Auto) (0.3 - 3.7 %) 0.2 L Baso % (Auto) (0.0 - 2.0 %) 0.1 Neut # (Auto) (2.0 - 7.6 x10 3/uL) 9.84 H Lymph # (Auto) (1.0 - 3.8 x10 3/uL) 1.60 [place] # (Auto) (0.1 - 0.8 x10 3/uL) [...] discussed with patient and . at 1923 RPT #:[id number] OF REPORTPRProgress rmpq5323-22-35M11:00:00G.[id number] VAvailable for patient wlrmKXFQIZRCXOGAHA8448-83-03X45:24:07 [facility] 2022-09-20 16:11:00 [id number]+pgIP3g8d5ERPQrOSD7j nnU 1oGgASjCPkPvJ6YLnJs3WPbBAxihN+kFn4476-74-74 T16:11:00 [facility] Progress NoteREPORT#:[id number] REPORT STATUS: SignedDATE:09/20/22 TIME: 1611 PATIENT: KARMA ROWLAND UNIT #: [id number]#: [id number] [address] [birth year] AGE: 56 SEX: M ATTEND: Mj Vences MDADM AUTHOR: Braxton Chapin MD * ALL edits or amendments must be made on the electronic/computer document * SubjectivePatient reports: no complaints Objective GeneralVS:Last Documented: Result Date Time Pulse Ox 97 09/20 1552 B/P 168/84 09/20 1552 B/P Mean 112.0 09/20 1552 O2 Delivery Room air 09/20 155 Temp 36.6 09/20 1552 Pulse 80 09/20 1552 Resp 18 04/29 1552 O2 Flow Rate 2 09/08 1322 [...] (Auto) (14.0 - 32.0 %) 13.0 L [place] % (Auto) (4.8 - 9.0 %) 6.2 Eos % (Auto) (0.3 - 3.7 %) 0.2 L Baso % (Auto) (0.0 - 2.0 %) 0.1 Neut # (Auto) (2.0 - 7.6 x10 3/uL) 9.84 H Lymph # (Auto) (1.0 - 3.8 x10 3/uL) 1.60 [place] # (Auto) (0.1 - 0.8 x10 3/uL) [...] % (Auto) (14.0 - 32.0 %) 16.5 [place] % (Auto) (4.8 - 9.0 %) 8.4 Eos % (Auto) (0.3 - 3.7 %) 2.4 Baso % (Auto) (0.0 - 2.0 %) 0.2 Neut # (Auto) (2.0 - 7.6 x10 3/uL) 9.50 H Lymph # (Auto) (1.0 - 3.8 x10 3/uL) 2.19 [place] # (Auto) (0.1 - 0.8 x10 3/uL) [...] % (Auto) (14.0 - 32.0 %) 17.4 [place] % (Auto) (4.8 - 9.0 %) 6.9 Eos % (Auto) (0.3 - 3.7 %) 0.1 L Baso % (Auto) (0.0 - 2.0 %) 0.1 Neut # (Auto) (2.0 - 7.6 x10 3/uL) 7.91 H Lymph # (Auto) (1.0 - 3.8 x10 3/uL) 1.85 [place] # (Auto) (0.1 - 0.8 x10 3/uL) [...] (Auto) (14.0 - 32.0 %) 10.2 L [place] % (Auto) (4.8 - 9.0 %) 2.9 L Eos % (Auto) (0.3 - 3.7 %) 0.0 L Baso % (Auto) (0.0 - 2.0 %) 0.1 Neut # (Auto) (2.0 - 7.6 x10 3/uL) 7.58 Lymph # (Auto) (1.0 - 3.8 x10 3/uL) 0.91 L [place] # (Auto) (0.1 - 0.8 x10 3/uL) [...] % (Auto) (14.0 - 32.0 %) 18.6 [place] % (Auto) (4.8 - 9.0 %) 6.7 Eos % (Auto) (0.3 - 3.7 %) 0.2 L Baso % (Auto) (0.0 - 2.0 %) 0.1 Neut # (Auto) (2.0 - 7.6 x10 3/uL) 6.99 Lymph # (Auto) (1.0 - 3.8 x10 3/uL) 1.77 [place] # (Auto) (0.1 - 0.8 x10 3/uL) [...] 09/15 09/15 09/15 09/15 1640 1304 1154 0512 Chemistry POC Glucose (70 - 110 MG/DL) 137 H 126 H 309 H Urines Urine Color (YEL/STRAW) YELLOW Urine Appearance (CLEAR) SL CLOUDY Urine pH (5.0 - 7.0) 5.0 Ur Specific [place] (1.005 - 1.030) 1.013 Urine Protein (NEGATIVE) [...] (Auto) (14.0 - 32.0 %) 11.3 L [place] % (Auto) (4.8 - 9.0 %) 3.2 L Eos % (Auto) (0.3 - 3.7 %) 0.0 L Baso % (Auto) (0.0 - 2.0 %) 0.1 Neut # (Auto) (2.0 - 7.6 x10 3/uL) 7.35 Lymph # (Auto) (1.0 - 3.8 x10 3/uL) 0.98 L [place] # (Auto) (0.1 - 0.8 x10 3/uL) [...] 09/14 09/14 09/14 09/13 1130 0736 0526 0578 1937Chemistry Sodium (134 - 147 mEq/L) 132 [...] (Auto) (14.0 - 32.0 %) 13.9 L [place] % (Auto) (4.8 - 9.0 %) 5.1 Eos % (Auto) (0.3 - 3.7 %) 0.0 L Baso % (Auto) (0.0 - 2.0 %) 0.1 Neut # (Auto) (2.0 - 7.6 x10 3/uL) 7.58 Lymph # (Auto) (1.0 - 3.8 x10 3/uL) 1.31 [place] # (Auto) (0.1 - 0.8 x10 3/uL) [...] # (Man) (0.0 - 0.1 0.00x10 3/uL) 09/139 Chemistry POC Glucose (70 - 110 MG/DL) 130 H Laboratory Tests: 09/13 09/13 09/13 09/12 1109 1641 5811 2016 Chemistry Sodium (134 - 147 mEq/L) [...] (Auto) (14.0 - 32.0 %) 10.4 L [place] % (Auto) (4.8 - 9.0 %) 3.5 L Eos % (Auto) (0.3 - 3.7 %) 0.0 L Baso % (Auto) (0.0 - 2.0 %) 0.1 Neut # (Auto) (2.0 - 7.6 x10 3/uL) 8.34 H Lymph # (Auto) (1.0 - 3.8 x10 3/uL) 1.02 [place] # (Auto) (0.1 - 0.8 x10 3/uL) [...] % (Auto) (14.0 - 32.0 %) 15.0 [place] % (Auto) (4.8 - 9.0 %) 7.9 Eos % (Auto) (0.3 - 3.7 %) 3.8 H Baso % (Auto) (0.0 - 2.0 %) 0.3 Neut # (Auto) (2.0 - 7.6 x10 3/uL) 6.34 Lymph # (Auto) (1.0 - 3.8 x10 3/uL) 1.31 [place] # (Auto) (0.1 - 0.8 x10 3/uL) [...] % (Auto) (14.0 - 32.0 %) 16.1 [place] % (Auto) (4.8 - 9.0 %) 9.1 H Eos % (Auto) (0.3 - 3.7 %) 5.6 H Baso % (Auto) (0.0 - 2.0 %) 0.5 Neut # (Auto) (2.0 - 7.6 x10 3/uL) 5.35 Lymph # (Auto) (1.0 - 3.8 x10 3/uL) 1.27 [place] # (Auto) (0.1 - 0.8 x10 3/uL) [...] % (Auto) (14.0 - 32.0 %) 15.5 [place] % (Auto) (4.8 - 9.0 %) 8.5 Eos % (Auto) (0.3 - 3.7 %) 5.5 H Baso % (Auto) (0.0 - 2.0 %) 0.4 Neut # (Auto) (2.0 - 7.6 x10 3/uL) 5.94 Lymph # (Auto) (1.0 - 3.8 x10 3/uL) 1.33 [place] # (Auto) (0.1 - 0.8 x10 3/uL) [...] % (Auto) (14.0 - 32.0 %) 16.1 [place] % (Auto) (4.8 - 9.0 %) 9.2 H Eos % (Auto) (0.3 - 3.7 %) 4.7 H Baso % (Auto) (0.0 - 2.0 %) 0.4 Neut # (Auto) (2.0 - 7.6 x10 3/uL) 6.38 Lymph # (Auto) (1.0 - 3.8 x10 3/uL) 1.49 [place] # (Auto) (0.1 - 0.8 x10 3/uL) [...] (Auto) (14.0 - 32.0 %) 13.7 L [place] % (Auto) (4.8 - 9.0 %) 7.2 Eos % (Auto) (0.3 - 3.7 %) 4.8 H Baso % (Auto) (0.0 - 2.0 %) 0.3 Neut # (Auto) (2.0 - 7.6 x10 3/uL) 6.64 Lymph # (Auto) (1.0 - 3.8 x10 3/uL) 1.24 [place] # (Auto) (0.1 - 0.8 x10 3/uL) [...] By: TipRG17 - Roger Parra M.D.ULTRASOUND [facility]/LTD 09/05 1146 Report Impression [...] insulin dose.PT and OT. at 1611 RPT #:[id number] OF REPORTPRProgress dgyd1315-68-39J07:11:00G.OKDJ83060779-1001G VAvailable for patient mpgcYWJASJARBYUFRR0553-28-48Q86:12:13 [facility] 2022-09-20 13:40:00 [id number]+qwxDmc8xL+Gv3oW5fU h0q FCsGV5MzIBVfdWUXL9mwIVpcsd4AMlX036948-49-63 T13:40:00 [facility] Progress NoteREPORT#:[id number] REPORT STATUS: SignedDATE:09/20/22 TIME: 1340 PATIENT: KARMA ROWLAND UNIT #: [id number]#: [id number] [address] AGE: 56 SEX: M ATTEND: RuMj B MDADM AUTHOR: Kassie Avitia MD * ALL [...] hospitalist, infectious disease, podiatry at 1341 RPT #:[id number] OF REPORTPRProgress wkoj1470-76-41T72:40:00G.APYS70900739-0863P VAvailable for patient kxpgVTLCUHQKFNIKAR2808-52-78L34:42:40 [facility] 2022-09-20 10:45:00 [id number]pCfF Zx/ orvC6nQj981HpiAFQnBp0vLjA/xc7803M3449-52-62 T10:45:00 [facility]ospital[facility] Progress NoteREPORT#:[id number] REPORT STATUS: SignedDATE:09/20/22 TIME: 1045 PATIENT: KARMA ROWLAND UNIT #: [id number]#: [id number] [place] [facility]: [birth year] AGE: 56 SEX: M ATTEND: Mj [...] thigh), moves all, normal capillary refillMusculoskeletal: normal inspectionNeuro/CONTRACT RUNNER: alert, oriented X 3, 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 Considered [...] (Auto) (14.0 - 32.0 %) 13.0 L [place] % (Auto) (4.8 - 9.0 %) 6.2 Eos % (Auto) (0.3 - 3.7 %) 0.2 L Baso % (Auto) (0.0 - 2.0 %) 0.1 Neut # (Auto) (2.0 - 7.6 x10 3/uL) 9.84 H Lymph # (Auto) (1.0 - 3.8 x10 3/uL) 1.60 [place] # (Auto) (0.1 - 0.8 x10 3/uL) [...] stabilized. continue to monitor at 1045 RPT #:[id number] OF REPORTPRProgress mpkh9470-92-46T37:45:00G.JJWD48336323-7953I VAvailable for patient agnyPXRRCUQYRIMASI3138-15-44S15:48:39 [facility] 2022-09-20 10:32:00 [id number]/ZeTTM W88 slVBBnGzrJWdWcRUYGTkTni5kNqI1QKXw6543-59-95 T10:32:00 [facility] ([facility])Podiatry Progress NoteREPORT#:[id number] REPORT STATUS: SignedDATE:09/20/22 TIME: 1032 PATIENT: KARMA ROWLAND UNIT #: [id number]#: [id number] ROOM/BED: [facility] [place]DOB: [birth year] AGE: 56 SEX: M ATTEND: Mj Vences AUTHOR: Francisco Singh DPJude * ALL edits or amendments must [...] (Auto) (14.0 - 32.0 %) 13.0 L [place] % (Auto) (4.8 - 9.0 %) 6.2 Eos % (Auto) (0.3 - 3.7 %) 0.2 L Baso % (Auto) (0.0 - 2.0 %) 0.1 Neut # (Auto) (2.0 - 7.6 x10 3/uL) 9.84 H Lymph # (Auto) (1.0 - 3.8 x10 3/uL) 1.60 [place] # (Auto) (0.1 - 0.8 x10 3/uL) [...] hospitalist, infectious disease, podiatry at 1620 RPT #:[id number] OF REPORTPRProgress dxnj8221-23-25Z92:32:00G.SYTR83997614-4317U VAvailable for patient cxwbHURERXCYXQSDJU4972-25-00N26:20:42 [facility] 2022-09-20 09:08:00 [id number]/7J3NDu AYS fUiqDb9Sk6ZdkA3EkYAIUgK2O/lxO3DuG6223-63-80 T09:08:00 [facility] ([facility]Nephrology Progress NoteREPORT#:[id number] REPORT STATUS: SignedDATE:09/20/22 TIME: 09 PATIENT: KARMA ROWLAND UNIT #: [id number]#: [id number] [address] [birth year] AGE: 56 SEX: M ATTEND: Mj Vences [facility] AUTHOR: Barrera Ramírez MD * ALL edits [...] non-tender, no edemaMusculoskeletal: no CVA tenderness, no tendernessNeuro/CONTRACT RUNNER: alert, 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 Considered stroke alert: noSkin: [...] (Auto) (14.0 - 32.0 %) 13.0 L [place] % (Auto) (4.8 - 9.0 %) 6.2 Eos % (Auto) (0.3 - 3.7 %) 0.2 L Baso % (Auto) (0.0 - 2.0 %) 0.1 Neut # (Auto) (2.0 - 7.6 x10 3/uL) 9.84 H Lymph # (Auto) (1.0 - 3.8 x10 3/uL) 1.60 [place] # (Auto) (0.1 - 0.8 x10 3/uL) [...] his renal functions. BP is well controlled. 4.23.23: pt was seen and examined. Feels better [...] hospitalist, infectious disease, podiatry at 1137 RPT #:[id number] OF REPORTPRProgress hbaw3032-10-67M61:08:00G.[id number] VAvailable for patient jjjzZJIXOQUEJSGGAU5704-13-45F43:38:03 [facility] 2022-09-20 08:44:00 [id number]HRn2 pBX DdTjCmilPsuQjueNMDmO9wtmZ4qGWLyz98422-34-84 T08:44:00 [facility] ([facility])Pain Management Progress NoteREPORT#:[id number] REPORT STATUS: SignedDATE:09/20/22 TIME: 843 PATIENT: KARMA ROWLAND UNIT #: [id number]#: [id number] [address] AGE: 56 SEX: M ATTEND: Mj Vences [facility] AUTHOR: Ben Klein * ALL edits or [...] moves all, no edema, pedal pulses, right BKANeuro/CONTRACT RUNNER: 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, no sensory deficits, CNII-XII [...] (Auto) (14.0 - 32.0 %) 13.0 L [place] % (Auto) (4.8 - 9.0 %) 6.2 Eos % (Auto) (0.3 - 3.7 %) 0.2 L Baso % (Auto) (0.0 - 2.0 %) 0.1 Neut # (Auto) (2.0 - 7.6 x10 3/uL) 9.84 H Lymph # (Auto) (1.0 - 3.8 x10 3/uL) 1.60 [place] # (Auto) (0.1 - 0.8 x10 3/uL) [...] to comorbid conditions-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 every 4 hours [...] pain , gabapentin 100mg q8h sent to [id number] [place] [address] [address] Patient has [...] whom agrees. Thank you for the consultation. 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:-database searched, no information found Kingsley Ng 10/08/222044:Attestations Physician AttestationAgree w/findings plan:The patient was seen and examined by Ben Klein. I personally developed the care plan, which was continued by the mid-level provider. I was immediately available. at 1124 at 2046 RPT #:[id number] OF REPORTPRProgress bkod0938-02-74C86:44:00G.[id number] VAvailable for patient nxbsIYJAWQYGJOEURT7556-63-09F32:24:38 [facility] 2022-09-20 06:21:00 [id number]DOo+ Mlm 1Wk1aQ1qMYM+jyVEGZLCgieYR2E30tJyc1689-42-19 T06:21:00 [facility] Progress NoteREPORT#:[id number] REPORT STATUS: SignedDATE:09/20/22 TIME: 620 PATIENT: KARMA ROWLAND UNIT #: [id number]#: [id number] ROOM/BED: G537-1DOB: [birth year] AGE: 56 SEX: M ATTEND: Mj Vences MDADM AUTHOR: Guero Candelaria * ALL edits or amendments must be made on the electronic/computer document * SubjectiveChief complaint:Rehab follow-upDoing betterBKA site without bleedingGeneralized and scrotal edema slowly improvingBP improvedEating 75-100% at bedside+ BMDenies CARRASCO/N/V/D/CP14 systems reviewed and neg. except that above.History [...] homans neg), BUE 5/5, LLE4/5, R hip 3-Neuro/CONTRACT RUNNER: alert, oriented X 3, CNII-XII intact ResultsFindings/Data:Laboratory [...] (Auto) (14.0 - 32.0 %) 16.5 17.4 [place] % (Auto) (4.8 - 9.0 %) 8.4 6.9 Eos % (Auto) (0.3 - 3.7 %) 2.4 0.1 L Baso % (Auto) (0.0 - 2.0 %) 0.2 0.1 Neut # (Auto) (2.0 - 7.6 x10 3/uL) 9.50 H 7.91 H Lymph # (Auto) (1.0 - 3.8 x10 3/uL) 2.19 1.85 [place] # (Auto) (0.1 - 0.8 x10 3/uL) [...] than 5, dietaryconsultation, protein supplements to promote mnefrml-Iqfthbrc-Z6r 14, tight glycemia control- endocrine on board, insulin adjustments-Endocrinology, ID, podiatry, cardiology, IM consulted-Pain management adjusting pain medications-Anemia, patient required multiple units of PRBCs on acute, FOBT positive-IV Protonix-consult GI-serial H H-no evidence of gross bleeding-discussed with Dr. TrinidadEihwmsof-Nmztcbwwfnvf-lycyxilie mhmzerkq-HVM-yzvmbq-CW Senokot and MiraLAX, DSP-MRSA OF NARES on [...] of LLE-negative for DVT-Joan wrap dressing and koflkclxg-Biapgk-kzybzzkkrp 8.3, 7.7, 8.2, 7.6, 8 transfused 2 [...] 09/24 as per ID-Lasix as per nephrology-Completed Lqez-Hnoqxr-6/21: Echo-EF 55-60%, indeterminate diastolic function parameters as [...] tolerated-discussed treatment plan with patient and -Right MAA-ekjnuss-hclpkwoo resolved, dressings changed today-no bleeding after heparin [...] Agree with interdisciplinary treatment plan. at 1340 RPT #:[id number] OF REPORTPRProgress nhdz2277-79-04T17:21:00G.[id number] VAvailable for patient xvugDXMPCOGVEZEQPI6429-46-89R03:40:40 [facility] 2022-09-19 20:22:00 [id number]+lJHOG+g/vpIo4mbngoL Pwl UuHaGieJICG7EgWzdzJmO5WHq+dR3QCza8350-73-77 T20:22:00 [facility] ([facility])Podiatry Progress NoteREPORT#:[id number] REPORT STATUS: SignedDATE:09/19/22 TIME: 2021 PATIENT: KARMA ROWLAND UNIT #: [id number]#: [id number] [address] [birth year] AGE: 56 SEX: M ATTEND: Mj Vences [facility] AUTHOR: Liam Pedersen DPM * ALL edits [...] % (Auto) (14.0 - 32.0 %) 16.5 [place] % (Auto) (4.8 - 9.0 %) 8.4 Eos % (Auto) (0.3 - 3.7 %) 2.4 Baso % (Auto) (0.0 - 2.0 %) 0.2 Neut # (Auto) (2.0 - 7.6 x10 3/uL) 9.50 H Lymph # (Auto) (1.0 - 3.8 x10 3/uL) 2.19 [place] # (Auto) (0.1 - 0.8 x10 3/uL) [...] (Man) (0.0 - 0.1 0.00x10 3/uL) 09/18 2151 Chemistry POC Glucose (70 - 110 MG/DL) 103 Diagnosis, Assessment PlanFree Text A P:DM with neuropathyearly decub ulcer left heelOA/edema left ankleearly ulcer/DTI dorsal left midfoot zinc oxide to foot and heelfoam to heelon IV abxon PO gabapentinoffloading bootace wraps to ankle, only when OOB with therapy.zinc oxide interchange with bactroban to dorsal left footConsultants: cardiology, endocrinology, hospitalist, infectious disease, podiatry at 2022 RPT #:[id number] OF REPORTPRProgress ysfd9858-40-17Y84:22:00G.[id number] VAvailable for patient wzaaKWKPREMMVEQNUN6638-88-59L95:23:43 [facility] 2022-09-19 15:29:00 [id number] [place] bUS7AmxaFzGgcpRqYGfZ11nJscpTv/nVk5031-51-22 T15:29:00 [facility] ([facility])Pain Management Progress NoteREPORT#:[id number] REPORT STATUS: SignedDATE:09/19/22 TIME: 1528 PATIENT: KARMA ROWLAND UNIT #: [id number]#: [id number] [address] AGE: 56 SEX: M ATTEND: Mj Vences MDADM AUTHOR: Ben Klein * ALL edits or [...] moves all, no edema, pedal pulses, right BKANeuro/CONTRACT RUNNER: 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, no sensory deficits, CNII-XII [...] % (Auto) (14.0 - 32.0 %) 16.5 [place] % (Auto) (4.8 - 9.0 %) 8.4 Eos % (Auto) (0.3 - 3.7 %) 2.4 Baso % (Auto) (0.0 - 2.0 %) 0.2 Neut # (Auto) (2.0 - 7.6 x10 3/uL) 9.50 H Lymph # (Auto) (1.0 - 3.8 x10 3/uL) 2.19 [place] # (Auto) (0.1 - 0.8 x10 3/uL) [...] to comorbid conditions-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 every 4 hours as needed pain scale 4 10-DC Dilaudid 0.5 mg IV daily as needed pain scale 7 10, second line therapy (4/22)-Tylenol 650 mg p.o. every 6 hours as needed pain scale 1 3-Percocet 10/325mg every 4 hours as needed, pain scale 4-10 (09/10)-Lidoderm patch to left ankle daily-IV antibiotics with vancomycin until 1-6-0972-Local wound care-manageable Diabetic peripheral neuropathy-amitriptyline 25mg PO [...] pain , gabapentin 100mg q8h sent to [facility]/pharmacy #[id number] [facility] [address] ([address]) Patient has [...] whom agrees. Thank you for the consultation. 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:-database searched, no information found Kingsley Ng 10/07/22 1701:Attestations Physician AttestationAgree w/findings plan:The patient was seen and examined by Ben Klein. I personally developed the care plan, which was continued by the mid-level provider. I was immediately available. at 1530 at 1708 RPT #:[id number] OF REPORTPRProgress qqig2226-28-50D23:29:00G.[id number] VAvailable for patient qxudALZUYXABDVZLHT0472-93-32E47:30:36 [facility] 2022-09-19 14:59:00 [id number]+z8DxPY mqc 5OvgP+scMXYD8WMnElrDXDMGXLAv6j2UR1440-23-60 T14:59:00 [facility])Endocrinology Progress NoteREPORT#:[id number] REPORT STATUS: SignedDATE:09/19/22 TIME: 145 PATIENT: KARMA ROWLAND UNIT #: [id number]#: [id number] [address] AGE: 56 SEX: M ATTEND: Mj Vences [facility] AUTHOR: Braxton Chapin MD * ALL edits or amendments must be made on the electronic/computer document * SubjectivePatient reports: no complaints Objective GeneralVS:Last Documented: Result Date Time Pulse Ox 98 09/19 0655 B/P 138/68 09/19 0655 B/P Mean 91.6 09/19 0655 O2 Delivery Room air 09/19 0655 Temp 36.9 09/19 0655 Pulse 90 09/19 0655 Resp [...] Tests: 09/19 09/19 09/19 09/18 09/18 1133 0508 5466 1526 0767Lhemistry Sodium (134 - 147 mEq/L) 139 Potassium [...] % (Auto) (14.0 - 32.0 %) 16.5 [place] % (Auto) (4.8 - 9.0 %) 8.4 Eos % (Auto) (0.3 - 3.7 %) 2.4 Baso % (Auto) (0.0 - 2.0 %) 0.2 Neut # (Auto) (2.0 - 7.6 x10 3/uL) 9.50 H Lymph # (Auto) (1.0 - 3.8 x10 3/uL) 2.19 [place] # (Auto) (0.1 - 0.8 x10 3/uL) [...] % (Auto) (14.0 - 32.0 %) 17.4 [place] % (Auto) (4.8 - 9.0 %) 6.9 Eos % (Auto) (0.3 - 3.7 %) 0.1 L Baso % (Auto) (0.0 - 2.0 %) 0.1 Neut # (Auto) (2.0 - 7.6 x10 3/uL) 7.91 H Lymph # (Auto) (1.0 - 3.8 x10 3/uL) 1.85 [place] # (Auto) (0.1 - 0.8 x10 3/uL) [...] (Auto) (14.0 - 32.0 %) 10.2 L [place] % (Auto) (4.8 - 9.0 %) 2.9 L Eos % (Auto) (0.3 - 3.7 %) 0.0 L Baso % (Auto) (0.0 - 2.0 %) 0.1 Neut # (Auto) (2.0 - 7.6 x10 3/uL) 7.58 Lymph # (Auto) (1.0 - 3.8 x10 3/uL) 0.91 L [place] # (Auto) (0.1 - 0.8 x10 3/uL) [...] % (Auto) (14.0 - 32.0 %) 18.6 [place] % (Auto) (4.8 - 9.0 %) 6.7 Eos % (Auto) (0.3 - 3.7 %) 0.2 L Baso % (Auto) (0.0 - 2.0 %) 0.1 Neut # (Auto) (2.0 - 7.6 x10 3/uL) 6.99 Lymph # (Auto) (1.0 - 3.8 x10 3/uL) 1.77 [place] # (Auto) (0.1 - 0.8 x10 3/uL) [...] pH (5.0 - 7.0) 5.0 Ur Specific [place] (1.005 - 1.030) 1.013 Urine Protein (NEGATIVE) [...] (Auto) (14.0 - 32.0 %) 11.3 L [place] % (Auto) (4.8 - 9.0 %) 3.2 L Eos % (Auto) (0.3 - 3.7 %) 0.0 L Baso % (Auto) (0.0 - 2.0 %) 0.1 Neut # (Auto) (2.0 - 7.6 x10 3/uL) 7.35 Lymph # (Auto) (1.0 - 3.8 x10 3/uL) 0.98 L [place] # (Auto) (0.1 - 0.8 x10 3/uL) [...] (Auto) (14.0 - 32.0 %) 13.9 L [place] % (Auto) (4.8 - 9.0 %) 5.1 Eos % (Auto) (0.3 - 3.7 %) 0.0 L Baso % (Auto) (0.0 - 2.0 %) 0.1 Neut # (Auto) (2.0 - 7.6 x10 3/uL) 7.58 Lymph # (Auto) (1.0 - 3.8 x10 3/uL) 1.31 [place] # (Auto) (0.1 - 0.8 x10 3/uL) [...] H Laboratory Tests: 09/13 09/13 09/13 09/12 7912 0565 0456 2016 Chemistry Sodium (134 - 147 [...] (Auto) (14.0 - 32.0 %) 10.4 L [place] % (Auto) (4.8 - 9.0 %) 3.5 L Eos % (Auto) (0.3 - 3.7 %) 0.0 L Baso % (Auto) (0.0 - 2.0 %) 0.1 Neut # (Auto) (2.0 - 7.6 x10 3/uL) 8.34 H Lymph # (Auto) (1.0 - 3.8 x10 3/uL) 1.02 [place] # (Auto) (0.1 - 0.8 x10 3/uL) [...] Date/Time Procedure - Status Source Growth 09/13 1834 MRSA DNA Surveillance Screen - RECD NASAL [...] % (Auto) (14.0 - 32.0 %) 15.0 [place] % (Auto) (4.8 - 9.0 %) 7.9 Eos % (Auto) (0.3 - 3.7 %) 3.8 H Baso % (Auto) (0.0 - 2.0 %) 0.3 Neut # (Auto) (2.0 - 7.6 x10 3/uL) 6.34 Lymph # (Auto) (1.0 - 3.8 x10 3/uL) 1.31 [place] # (Auto) (0.1 - 0.8 x10 3/uL) [...] % (Auto) (14.0 - 32.0 %) 16.1 [place] % (Auto) (4.8 - 9.0 %) 9.1 H Eos % (Auto) (0.3 - 3.7 %) 5.6 H Baso % (Auto) (0.0 - 2.0 %) 0.5 Neut # (Auto) (2.0 - 7.6 x10 3/uL) 5.35 Lymph # (Auto) (1.0 - 3.8 x10 3/uL) 1.27 [place] # (Auto) (0.1 - 0.8 x10 3/uL) [...] % (Auto) (14.0 - 32.0 %) 15.5 [place] % (Auto) (4.8 - 9.0 %) 8.5 Eos % (Auto) (0.3 - 3.7 %) 5.5 H Baso % (Auto) (0.0 - 2.0 %) 0.4 Neut # (Auto) (2.0 - 7.6 x10 3/uL) 5.94 Lymph # (Auto) (1.0 - 3.8 x10 3/uL) 1.33 [place] # (Auto) (0.1 - 0.8 x10 3/uL) [...] 1503 IMPRESSION: No acute findings. Impression By: Yraed Mares M.D. Laboratory Tests: 09/09 09/09 09/09 [...] % (Auto) (14.0 - 32.0 %) 16.1 [place] % (Auto) (4.8 - 9.0 %) 9.2 H Eos % (Auto) (0.3 - 3.7 %) 4.7 H Baso % (Auto) (0.0 - 2.0 %) 0.4 Neut # (Auto) (2.0 - 7.6 x10 3/uL) 6.38 Lymph # (Auto) (1.0 - 3.8 x10 3/uL) 1.49 [place] # (Auto) (0.1 - 0.8 x10 3/uL) [...] (Auto) (14.0 - 32.0 %) 13.7 L [place] % (Auto) (4.8 - 9.0 %) 7.2 Eos % (Auto) (0.3 - 3.7 %) 4.8 H Baso % (Auto) (0.0 - 2.0 %) 0.3 Neut # (Auto) (2.0 - 7.6 x10 3/uL) 6.64 Lymph # (Auto) (1.0 - 3.8 x10 3/uL) 1.24 [place] # (Auto) (0.1 - 0.8 x10 3/uL) [...] insulin dose.PT and OT. at 1500 RPT #:[id number] OF REPORTPRProgress sdeu8908-83-60P17:59:00G.[id number] VAvailable for patient wpckJLVWBJEZNPTZEK2381-49-96D79:01:00 [facility] 2022-09-19 14:14:00 [id number]/TzTyZmnPVyM6S7zK8DM YIw 9PLH1jfVNsDz/R+YxQ+X9PvRryPPkgXME8479-16-90 T14:14:00 [facility] ([facility])Rehab Progress NoteREPORT#:[id number] REPORT STATUS: SignedDATE:09/19/22 TIME: 1414 PATIENT: KARMA ROWLAND UNIT #: [id number]#: [id number] [address] [birth year] AGE: 56 SEX: M ATTEND: Mj Vences [facility] AUTHOR: Mj Vences MD * ALL edits or amendments must be made on the electronic/computer document * SubjectiveChief complaint:Rehab follow-upFeels good todayBKA site without bleedingGeneralized and scrotal edema slowly improvingBP improvedEating 75-100% at bedside+ BMDenies CARRASCO/N/V/D/CP14 systems reviewed and neg. except that above.History [...] homans neg), BUE 5/5, LLE4/5, R hip 3-Neuro/CONTRACT RUNNER: alert, oriented X 3, CNII-XII intact ResultsFindings/Data:Laboratory [...] % (Auto) (14.0 - 32.0 %) 16.5 [place] % (Auto) (4.8 - 9.0 %) 8.4 Eos % (Auto) (0.3 - 3.7 %) 2.4 Baso % (Auto) (0.0 - 2.0 %) 0.2 Neut # (Auto) (2.0 - 7.6 x10 3/uL) 9.50 H Lymph # (Auto) (1.0 - 3.8 x10 3/uL) 2.19 [place] # (Auto) (0.1 - 0.8 x10 3/uL) [...] surgical debridement and washout4: S/p right BKA-Dr. Friedmanificant impairment in self-care, [...] than 5, dietaryconsultation, protein supplements to promote vgnwmaf-Fkxinedd-F5p 14, tight glycemia control- endocrine on board, insulin adjustments-Endocrinology, ID, podiatry, cardiology, IM consulted-Pain management adjusting pain medications-Anemia, patient required multiple units of PRBCs on acute, FOBT positive-IV Protonix-consult GI-serial H H-no evidence of gross bleeding-discussed with Dr. TrinidadPnpgwlct-Bdmsidrunesk-crqcghaxk mkeuwozj-OQN-pogsxi-CW Senokot and MiraLAX, DSP-MRSA OF NARES on [...] of LLE-negative for DVT-Joan wrap dressing and jvqdimila-Dizcnb-exxrkglequ 8.3, 7.7, 8.2, 7.6, 8 transfused 2 [...] 09/24 as per ID-Lasix as per nephrology-Completed Zupi-Jruahx-9/21: Echo-EF 55-60%, indeterminate diastolic function parameters as [...] tolerated-discussed treatment plan with patient and -Right JBV-qijnnyj-pybhpyul resolved, dressings changed today-no bleeding after heparin [...] USING RW DURING STAND PIVOT TRANSFERS TO [facility]. PM RPlease see team note.Plan and goals [...] with interdisciplinary treatment plan. at 1424 RPT #:[id number] OF REPORTPRProgress yfti8629-50-79M89:14:00G.JRDQ24393326-9732J VAvailable for patient ehexLNJXRLTDTAOCIP4837-15-99U34:24:21 [facility] 2022-09-19 13:22:00 [id number]+l2kFdqFt+eTXn Kbq uenVzqfTMyqPeLL8GAaxFZqu7vWun9dnl3836-20-56 T13:22:00 [facility] ([facility])Hospitalist Progress NoteREPORT#:[id number] REPORT STATUS: SignedDATE:09/19/22 TIME: 1322 PATIENT: KARMA ROWLAND UNIT #: [id number]#: [id number] [address] [birth year] AGE: 56 SEX: M ATTEND: Mj Vences [facility] AUTHOR: Meera Chavira DO * ALL edits [...] thigh), moves all, normal capillary refillMusculoskeletal: normal inspectionNeuro/CONTRACT RUNNER: alert, oriented X 3, 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 Considered [...] % (Auto) (14.0 - 32.0 %) 16.5 [place] % (Auto) (4.8 - 9.0 %) 8.4 Eos % (Auto) (0.3 - 3.7 %) 2.4 Baso % (Auto) (0.0 - 2.0 %) 0.2 Neut # (Auto) (2.0 - 7.6 x10 3/uL) 9.50 H Lymph # (Auto) (1.0 - 3.8 x10 3/uL) 2.19 [place] # (Auto) (0.1 - 0.8 x10 3/uL) [...] stabilized. continue to monitor at 1323 RPT #:[id number] OF REPORTPRProgress todu2037-39-78H55:22:00G.ARSH03458938-1020I VAvailable for patient hlbeLSPPRKZLIRGRUJ7819-67-94S78:24:11 [facility] 2022-09-19 10:38:00 [id number]/w5gGooti3V5yvko/2+yL Vas HVYRrvb1CSBbxm8976EUj8mUrdre3vinT1143-46-63 T10:38:00 [facility] (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 Will follow up at 1537 at 1194 RPT #:[id number] OF REPORTPRProgress nioh3713-34-10T55:38:00G.[id number] VAvailable for patient laslFAXJWIQEUCCEHQ5871-40-50N81:37:37 [facility] 2022-09-19 10:32:00 [id number]/Ovq4eSXuf rhZ JRvSZQGmSnQ9NtbccW4U9W+wZ+QX5LQg83351-03-57 T10:32:00 [facility] ([facility])Infectious Dis. Progress NoteREPORT#:[id number] REPORT STATUS: SignedDATE:09/19/22 TIME: 1032 PATIENT: KARMA ROWLAND UNIT #: [id number]#: [id number] [place]ED: [facility] [place]DOB: [birth year] AGE: 56 SEX: M ATTEND: Mj Vences [facility] AUTHOR: Linda Anderson MD * ALL edits [...] Pulse Resp B/P B/P Mean Pulse Ox UiP935/27-09/19 97.7-98.4 77-90 16-18 135-157/67-80 89.9-105.5 98 Last [...] right BKA Left foot wound +dressing in placeNeuro/CONTRACT RUNNER: alert, oriented X 3 Considered stroke alert: [...] % (Auto) (14.0 - 32.0 %) 16.5 [place] % (Auto) (4.8 - 9.0 %) 8.4 Eos % (Auto) (0.3 - 3.7 %) 2.4 Baso % (Auto) (0.0 - 2.0 %) 0.2 Neut # (Auto) (2.0 - 7.6 x10 3/uL) 9.50 H Lymph # (Auto) (1.0 - 3.8 x10 3/uL) 2.19 [place] # (Auto) (0.1 - 0.8 x10 3/uL) [...] % (Auto) (14.0 - 32.0 %) 16.5 [place] % (Auto) (4.8 - 9.0 %) 8.4 Eos % (Auto) (0.3 - 3.7 %) 2.4 Baso % (Auto) (0.0 - 2.0 %) 0.2 Neut # (Auto) (2.0 - 7.6 x10 3/uL) 9.50 H Lymph # (Auto) (1.0 - 3.8 x10 3/uL) 2.19 [place] # (Auto) (0.1 - 0.8 x10 3/uL) [...] % (Auto) (14.0 - 32.0 %) 17.4 [place] % (Auto) (4.8 - 9.0 %) 6.9 Eos % (Auto) (0.3 - 3.7 %) 0.1 L Baso % (Auto) (0.0 - 2.0 %) 0.1 Neut # (Auto) (2.0 - 7.6 x10 3/uL) 7.91 H Lymph # (Auto) (1.0 - 3.8 x10 3/uL) 1.85 [place] # (Auto) (0.1 - 0.8 x10 3/uL) [...] Q12HR 09/15 2100 DC 09/18 SUBQ 10/15 2059 0934 Cardiovascular Drugs [...] Sennosides 8.6 MG DAILY 09/05 0900 AC 09/19 PO 10/05 0859 0912 Bisacodyl 10 MG DAILY PRN PRN 09/01 1330 AC RECTAL 10/01 1329 Docusate Sodium 100 MG Q12H PRN PRN 09/01 1330 AC 09/13 PO 10/01 1329 1021 Ondansetron HCl 4 MG Q6H PRN PRN 09/01 1330 IV 10/01 1329 Hormones And Synthetic Substit Sig/Jan Start time Last Medication Dose Route Stop Time Status Admin Prednisone 60 MG DAILY 0600 09/19 0600 AC 09/19 PO 09/21 0601 0455 Insulin Human Lispro 10 UNIT AC 09/16 0730 AC 09/19 SUBQ 10/16 0729 0911 Insulin Glargine 20 UNIT BEDTIME 09/15 2100 AC 09/18 SUBQ 10/15 205 2147 Insulin Human Lispro 0 AC HS 09/03 1630 AC 09/17 SUBQ 10/03 1629 1233 Glucagon 1 MG ASDIR PRN 09/03 1515 AC IM 10/03 1514 Local Anesthetics (Parenteral) Sig/Jan Start time Last Medication Dose Route Stop Time Status Admin Lidocaine 1 PATCH DAILY 09/03 899 AC 09/19 TOPICAL 10/03 0859 0913 Skin [...] Jill Quintero on 09/19/22 at 1554 at 5969 RPT #:[id number] OF REPORTPRProgress ostq2062-48-92B92:32:00G.UWIX90307160-8043Y VAvailable for patient yeuwOYHOKBMSGNIXQB0448-97-10Z23:42:32 [facility] 2022-09-19 09:11:00 [id number]WICh GEN 1BhIu1Laavj09JOA5DouyRPr2KW2O9IU77905-84-26 T09:11:00 [facility] NoteRE[facility]#:[id number] REPORT STATUS: SignedDATE:09/19/22 TIME: 910 PATIENT: KARMA ROWLAND UNIT #: [id number]#: [id number] [address] [birth year] AGE: 56 SEX: M ATTEND: [...] endocrinology, hospitalist, infectious disease, podiatry at 0912 [facility] #:[id number] OF REPORTPRProgress jnod7502-98-03D90:11:00G.VHVT84582783-7970T VAvailable for patient msphMAGAFCNCYLMROR5108-63-69B10:13:00 [facility] 2022-09-19 07:38:00 [id number]+HDMqdAcTSWw0ljlKj B/X Rja9JMl9/bCYX8Ttmlw0E5lrD6cjGWrC+2022-09-19 T07:38:00 [facility] ([facility])Nephrology Progress NoteREPORT#:[id number] REPORT STATUS: SignedDATE:09/19/22 TIME: 0738 PATIENT: KARMA ROWLAND UNIT #: [id number]#: [id number] [address] [birth year] AGE: 56 SEX: M ATTEND: Mj Vences [facility] AUTHOR: Barrera Ramírez MD * ALL edits [...] hour I O ending at 0700: 09/19 0709/18 1900 Intake Total 100 480 Output Total [...] non-tender, no edemaMusculoskeletal: no CVA tenderness, no tendernessNeuro/CONTRACT RUNNER: alert, 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 Considered stroke alert: noSkin: [...] (14.0 - 32.0 %) 17.4 10.2 L [place] % (Auto) (4.8 - 9.0 %) 6.9 2.9 L Eos % (Auto) (0.3 - 3.7 %) 0.1 L 0.0 L Baso % (Auto) (0.0 - 2.0 %) 0.1 0.1 Neut # (Auto) (2.0 - 7.6 x10 3/uL) 7.91 H 7.58 Lymph # (Auto) (1.0 - 3.8 x10 3/uL) 1.85 0.91 L [place] # (Auto) (0.1 - 0.8 x10 3/uL) [...] hospitalist, infectious disease, podiatry at 0920 RPT #:[id number] OF REPORTPRProgress oosa1944-23-24F82:38:00G.ISCH50510022-8752D VAvailable for patient rkwiTCTYOPXNAKJOWD0429-45-22J01:20:32 [facility] 2022-09-18 17:41:00 [id number]+tczQ7+frP035d5tGeuq5LKl/NG 0Bb S54rWlsLS8W0D55OWa4fNwh0y5FYkc3eh9243-93-47 T17:41:00 [facility] ([facility])Endocrinology Progress NoteREPORT#:[id number] REPORT STATUS: SignedDATE:09/18/22 TIME: 1740 PATIENT: KARMA ROWLAND UNIT #: [id number]#: [id number] [address] [birth year] AGE: 56 SEX: M ATTEND: [...] % (Auto) (14.0 - 32.0 %) 17.4 [place] % (Auto) (4.8 - 9.0 %) 6.9 Eos % (Auto) (0.3 - 3.7 %) 0.1 L Baso % (Auto) (0.0 - 2.0 %) 0.1 Neut # (Auto) (2.0 - 7.6 x10 3/uL) 7.91 H Lymph # (Auto) (1.0 - 3.8 x10 3/uL) 1.85 [place] # (Auto) (0.1 - 0.8 x10 3/uL) [...] H 273 H 09/17 09/16 09/16 0450 0264 2496 Chemistry Sodium (134 - 147 mEq/L) 136 [...] (Auto) (14.0 - 32.0 %) 10.2 L [place] % (Auto) (4.8 - 9.0 %) 2.9 L Eos % (Auto) (0.3 - 3.7 %) 0.0 L Baso % (Auto) (0.0 - 2.0 %) 0.1 Neut # (Auto) (2.0 - 7.6 x10 3/uL) 7.58 Lymph # (Auto) (1.0 - 3.8 x10 3/uL) 0.91 L [place] # (Auto) (0.1 - 0.8 x10 3/uL) [...] % (Auto) (14.0 - 32.0 %) 18.6 [place] % (Auto) (4.8 - 9.0 %) 6.7 Eos % (Auto) (0.3 - 3.7 %) 0.2 L Baso % (Auto) (0.0 - 2.0 %) 0.1 Neut # (Auto) (2.0 - 7.6 x10 3/uL) 6.99 Lymph # (Auto) (1.0 - 3.8 x10 3/uL) 1.77 [place] # (Auto) (0.1 - 0.8 x10 3/uL) [...] pH (5.0 - 7.0) 5.0 Ur Specific [place] (1.005 - 1.030) 1.013 Urine Protein (NEGATIVE) [...] (Auto) (14.0 - 32.0 %) 11.3 L [place] % (Auto) (4.8 - 9.0 %) 3.2 L Eos % (Auto) (0.3 - 3.7 %) 0.0 L Baso % (Auto) (0.0 - 2.0 %) 0.1 Neut # (Auto) (2.0 - 7.6 x10 3/uL) 7.35 Lymph # (Auto) (1.0 - 3.8 x10 3/uL) 0.98 L [place] # (Auto) (0.1 - 0.8 x10 3/uL) [...] 09/14 09/14 09/14 09/13 1130 0736 0505 0528 1937Chemistry Sodium (134 - 147 mEq/L) 132 [...] (Auto) (14.0 - 32.0 %) 13.9 L [place] % (Auto) (4.8 - 9.0 %) 5.1 Eos % (Auto) (0.3 - 3.7 %) 0.0 L Baso % (Auto) (0.0 - 2.0 %) 0.1 Neut # (Auto) (2.0 - 7.6 x10 3/uL) 7.58 Lymph # (Auto) (1.0 - 3.8 x10 3/uL) 1.31 [place] # (Auto) (0.1 - 0.8 x10 3/uL) [...] H Laboratory Tests: 09/13 09/13 09/13 09/12 1103 1510 5948 2016 Chemistry Sodium (134 - 147 mEq/L) [...] (Auto) (14.0 - 32.0 %) 10.4 L [place] % (Auto) (4.8 - 9.0 %) 3.5 L Eos % (Auto) (0.3 - 3.7 %) 0.0 L Baso % (Auto) (0.0 - 2.0 %) 0.1 Neut # (Auto) (2.0 - 7.6 x10 3/uL) 8.34 H Lymph # (Auto) (1.0 - 3.8 x10 3/uL) 1.02 [place] # (Auto) (0.1 - 0.8 x10 3/uL) [...] % (Auto) (14.0 - 32.0 %) 15.0 [place] % (Auto) (4.8 - 9.0 %) 7.9 Eos % (Auto) (0.3 - 3.7 %) 3.8 H Baso % (Auto) (0.0 - 2.0 %) 0.3 Neut # (Auto) (2.0 - 7.6 x10 3/uL) 6.34 Lymph # (Auto) (1.0 - 3.8 x10 3/uL) 1.31 [place] # (Auto) (0.1 - 0.8 x10 3/uL) [...] % (Auto) (14.0 - 32.0 %) 16.1 [place] % (Auto) (4.8 - 9.0 %) 9.1 H Eos % (Auto) (0.3 - 3.7 %) 5.6 H Baso % (Auto) (0.0 - 2.0 %) 0.5 Neut # (Auto) (2.0 - 7.6 x10 3/uL) 5.35 Lymph # (Auto) (1.0 - 3.8 x10 3/uL) 1.27 [place] # (Auto) (0.1 - 0.8 x10 3/uL) [...] % (Auto) (14.0 - 32.0 %) 15.5 [place] % (Auto) (4.8 - 9.0 %) 8.5 Eos % (Auto) (0.3 - 3.7 %) 5.5 H Baso % (Auto) (0.0 - 2.0 %) 0.4 Neut # (Auto) (2.0 - 7.6 x10 3/uL) 5.94 Lymph # (Auto) (1.0 - 3.8 x10 3/uL) 1.33 [place] # (Auto) (0.1 - 0.8 x10 3/uL) [...] % (Auto) (14.0 - 32.0 %) 16.1 [place] % (Auto) (4.8 - 9.0 %) 9.2 H Eos % (Auto) (0.3 - 3.7 %) 4.7 H Baso % (Auto) (0.0 - 2.0 %) 0.4 Neut # (Auto) (2.0 - 7.6 x10 3/uL) 6.38 Lymph # (Auto) (1.0 - 3.8 x10 3/uL) 1.49 [place] # (Auto) (0.1 - 0.8 x10 3/uL) [...] (Auto) (14.0 - 32.0 %) 13.7 L [place] % (Auto) (4.8 - 9.0 %) 7.2 Eos % (Auto) (0.3 - 3.7 %) 4.8 H Baso % (Auto) (0.0 - 2.0 %) 0.3 Neut # (Auto) (2.0 - 7.6 x10 3/uL) 6.64 Lymph # (Auto) (1.0 - 3.8 x10 3/uL) 1.24 [place] # (Auto) (0.1 - 0.8 x10 3/uL) [...] By: TipRG17 - Roger Parra M.D.ULTRASOUND [facility]/LTD 09/05 1146 Report Impression [...] insulin dose.PT and OT. at 1742 RPT #:[id number] OF REPORTPRProgress jnng6301-84-39Y00:41:00G.[id number] VAvailable for patient xvasISSAXGEYROKHOH0434-51-68A27:42:53 [facility] 2022-09-18 17:39:00 [id number]OK4+ c4Q VUxo81UDlvjfc+okLr8xADH71T4lXXCNF5387-51-55 T17:39:00 [facility] ([facility])Podiatry Progress NoteREPORT#:[id number] REPORT STATUS: SignedDATE:09/18/22 TIME: 1739 PATIENT: KARMA ROWLAND UNIT #: [id number]#: [id number] [place] [facility] [place]: [birth year] AGE: 56 SEX: M ATTEND: Mj [...] % (Auto) (14.0 - 32.0 %) 17.4 [place] % (Auto) (4.8 - 9.0 %) 6.9 Eos % (Auto) (0.3 - 3.7 %) 0.1 L Baso % (Auto) (0.0 - 2.0 %) 0.1 Neut # (Auto) (2.0 - 7.6 x10 3/uL) 7.91 H Lymph # (Auto) (1.0 - 3.8 x10 3/uL) 1.85 [place] # (Auto) (0.1 - 0.8 x10 3/uL) [...] cardiology, endocrinology, hospitalist, infectious disease, podiatry at 7922 RPT #:[id number] OF REPORTPRProgress nonn9128-65-82Q76:39:00G.WMAZ84256902-6488L VAvailable for patient zljxYJQAYYAQZDGZWD6293-36-23H86:41:43 [facility] 2022-09-18 15:52:00 [id number]/+nXOEo ma/ G5YSaSuoSc27ys3qO8+eu2lfKlwxOH1/o5097-63-95 T15:52:00 [facility] ([facility])Gastroenterology Progress NoteREPORT#:[id number] REPORT STATUS: SignedDATE:09/18/22 TIME: 1552 PATIENT: KARMA ROWLAND UNIT #: [id number]#: [id number] [address] [birth year] AGE: 56 SEX: M ATTEND: [facility]j [facility]ences [facility] AUTHOR: Kassie Avitia MD * ALL edits [...] cardiology, endocrinology, hospitalist, infectious disease, podiatry at [facility] #:[id number] OF REPORTPRProgress aelj1690-46-12J57:52:00G.LJXX03840160-6019I VAvailable for patient kzizCJQULNDAPKLFUV3470-53-45H98:54:21 [facility] 2022-09-18 15:49:00 [id number]A6+R mgd /8a2SOk4GFh8+jZZBnuDzHCgxtSd8R1rQ9807-36-34 T15:49:00 [facility] ([facility])Pain Management Progress NoteREPORT#:[id number] REPORT STATUS: SignedDATE:09/18/22 TIME: 154 PATIENT: KARMA ROWLAND UNIT #: [id number]#: [id number] ROOM/BED: 537-1DOB: [birth year] AGE: 56 SEX: M ATTEND: Mj Vences [facility] AUTHOR: Ben Klein * ALL edits or [...] Pulse Resp B/P B/P Mean Pulse Ox SlV652/-09/18 36.5-36.7 77-90 14-18 153-178/80-88 105.5-116.7 98 Last [...] moves all, no edema, pedal pulses, right BKANeuro/CONTRACT RUNNER: 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, no sensory deficits, CNII-XII [...] % (Auto) (14.0 - 32.0 %) 17.4 [place] % (Auto) (4.8 - 9.0 %) 6.9 Eos % (Auto) (0.3 - 3.7 %) 0.1 L Baso % (Auto) (0.0 - 2.0 %) 0.1 Neut # (Auto) (2.0 - 7.6 x10 3/uL) 7.91 H Lymph # (Auto) (1.0 - 3.8 x10 3/uL) 1.85 [place] # (Auto) (0.1 - 0.8 x10 3/uL) [...] to comorbid conditions-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 every 4 hours [...] pain , gabapentin 100mg q8h sent to [facility]/pharmacy #[id number] [address], [place] [address] [address] Patient has [...] whom agrees. Thank you for the consultation. 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 I personally developed the care plan, which was continued by the mid-level provider. I was immediately available. at 1553 at 0727 RPT #:[id number] OF REPORTPRProgress ruez3408-59-61C76:49:00G.[id number] VAvailable for patient sifyPSTCABQDZQGSGN0354-10-20X97:54:11 [facility] 2022-09-18 13:35:00 [id number] zd/ P94SgWeG5YNdtvUeZQnqEkTMjtNSXq0MU1070-18-95 T13:35:00 [facility] Progress NoteREPORT#:[id number] REPORT STATUS: SignedDATE:09/18/22 TIME: 1335 PATIENT: KARMA ROWLAND UNIT #: [id number]#: [id number] [address] [birth year] AGE: 56 SEX: M ATTEND: Mj Vences [facility] AUTHOR: Meera Chavira DO * ALL edits [...] thigh), moves all, normal capillary refillMusculoskeletal: normal inspectionNeuro/CONTRACT RUNNER: alert, oriented X 3, 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 Considered [...] % (Auto) (14.0 - 32.0 %) 17.4 [place] % (Auto) (4.8 - 9.0 %) 6.9 Eos % (Auto) (0.3 - 3.7 %) 0.1 L Baso % (Auto) (0.0 - 2.0 %) 0.1 Neut # (Auto) (2.0 - 7.6 x10 3/uL) 7.91 H Lymph # (Auto) (1.0 - 3.8 x10 3/uL) 1.85 [place] # (Auto) (0.1 - 0.8 x10 3/uL) [...] edemaHgb stabilized. continue to monitor at 1338 RPT #:[id number] OF REPORTPRProgress iqrb9308-23-21R42:35:00G.[id number] VAvailable for patient txfmWZBTPVMKTJEPSA8460-08-71T18:38:21 [facility] 2022-09-18 11:41:00 [id number]/F g5I igYNfdxd4e0R2zR/ciYFhLGL9jBI9Q1MW7668-88-60 T11:41:00 [facility] ([facility])Rehab Progress NoteREPORT#:[id number] REPORT STATUS: SignedDATE:09/18/22 TIME: 1141 PATIENT: KARMA ROWLAND UNIT #: [id number]#: [id number] [address] [birth year] AGE: 56 SEX: M ATTEND: Mj Vences MDADM AUTHOR: Mj Vences MD * ALL edits or amendments must be made on the electronic/computer document * SubjectiveChief complaint:Rehab follow-upFeels good todayBKA site with bleedingEdema slowly improvingSlightly elevated blood pressureEating 75-100% at bedside+ BMDenies CARRASCO/N/V/D/CP14 systems reviewed and neg. except that above.History [...] homans neg), BUE 5/5, LLE4/5, R hip 3-Neuro/CONTRACT RUNNER: alert, oriented X 3, CNII-XII intact ResultsFindings/Data:Laboratory [...] % (Auto) (14.0 - 32.0 %) 17.4 [place] % (Auto) (4.8 - 9.0 %) 6.9 Eos % (Auto) (0.3 - 3.7 %) 0.1 L Baso % (Auto) (0.0 - 2.0 %) 0.1 Neut # (Auto) (2.0 - 7.6 x10 3/uL) 7.91 H Lymph # (Auto) (1.0 - 3.8 x10 3/uL) 1.85 [place] # (Auto) (0.1 - 0.8 x10 3/uL) [...] than 5, dietaryconsultation, protein supplements to promote ggbxohr-Zrakafiu-W7g 14, tight glycemia control- endocrine on board, insulin adjustments-Endocrinology, ID, podiatry, cardiology, IM consulted-Pain management adjusting pain medications-Anemia, patient required multiple units of PRBCs on acute, FOBT positive-IV Protonix-consult GI-serial H H-no evidence of gross bleeding-discussed with Dr. TrinidadPsybafmu-Gmjjklxznafk-mnlfxytxw xlldqybq-XRX-xuufop-CW Senokot and MiraLAX, DSP-MRSA OF NARES on [...] of LLE-negative for DVT-Joan wrap dressing and ycwtrfeqy-Ijgtzs-ixueuuovbi 8.3, 7.7, 8.2, 7.6 transfused 2 units [...] 09/24 as per ID-Lasix as per nephrology-Completed Cich-Ddiftz-Uijsz LLE swelling (not new) and low albumin. may benefit from albumin infusion+ Prvbt-OWW-iektkcclz opacities in the right mid and lower [...] drainage from BKA and continue wound care.-Right QTK-nwnpgtw-qwhblxct resolved, dressings changed today-Fresh blood, no odor-no [...] Agree with interdisciplinary treatment plan. at 1521 RPT #:[id number] OF REPORTPRProgress boub8667-45-31C80:41:00G.[id number] VAvailable for patient attaRFFTQIZODLMNHQ4190-51-08K31:21:46 [facility] 2022-09-18 10:45:00 [id number]guh i4P oGp0QHkHVWuhc4H1fJOJMI4wAQwByctx88618-78-97 T10:45:00 [facility] (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 Will follow. at 1946 at 0916 RPT #:[id number] OF REPORTPRProgress yaav4338-42-58H71:45:00G.[id number] VAvailable for patient gooqHUIGCHDSWIVPOK6352-93-20U58:46:49 [facility] 2022-09-18 10:37:00 [id number]+K5w3+ViQFiav9N1IKNipl aIr iurf528IIKaspIBFG0PY2kVzI00/Dr1a26007-40-02 T10:37:00 [facility] ([facility])Infectious Dis. Progress NoteREPORT#:[id number] REPORT STATUS: SignedDATE:09/18/22 TIME: 1037 PATIENT: KARMA ROWLAND UNIT #: [id number]#: [id number] [address] [birth year] AGE: 56 SEX: M ATTEND: [...] Pulse Resp B/P B/P Mean Pulse Ox DoC915/-09/18 97.7-98.1 79-90 14-18 153-178/82-88 105.7-116.7 98 Last [...] right BKA Left foot wound +dressing in placeNeuro/CONTRACT RUNNER: alert, oriented X 3 Considered stroke alert: [...] % (Auto) (14.0 - 32.0 %) 17.4 [place] % (Auto) (4.8 - 9.0 %) 6.9 Eos % (Auto) (0.3 - 3.7 %) 0.1 L Baso % (Auto) (0.0 - 2.0 %) 0.1 Neut # (Auto) (2.0 - 7.6 x10 3/uL) 7.91 H Lymph # (Auto) (1.0 - 3.8 x10 3/uL) 1.85 [place] # (Auto) (0.1 - 0.8 x10 3/uL) [...] % (Auto) (14.0 - 32.0 %) 17.4 [place] % (Auto) (4.8 - 9.0 %) 6.9 Eos % (Auto) (0.3 - 3.7 %) 0.1 L Baso % (Auto) (0.0 - 2.0 %) 0.1 Neut # (Auto) (2.0 - 7.6 x10 3/uL) 7.91 H Lymph # (Auto) (1.0 - 3.8 x10 3/uL) 1.85 [place] # (Auto) (0.1 - 0.8 x10 3/uL) [...] (Auto) (14.0 - 32.0 %) 10.2 L [place] % (Auto) (4.8 - 9.0 %) 2.9 L Eos % (Auto) (0.3 - 3.7 %) 0.0 L Baso % (Auto) (0.0 - 2.0 %) 0.1 Neut # (Auto) (2.0 - 7.6 x10 3/uL) 7.58 Lymph # (Auto) (1.0 - 3.8 x10 3/uL) 0.91 L [place] # (Auto) (0.1 - 0.8 x10 3/uL) [...] UNIT Q12HR 09/15 2100 AC 09/18 SUBQ 10/1534 Cardiovascular Drugs Sig/Jan Start time Last Medication [...] Sennosides 8.6 MG DAILY 09/05 09 AC 09/18 PO 10/05 0859 0934 Bisacodyl [...] Status Admin Prednisone 60 MG DAILY 09/19 06 AC PO 09/21 0601 Insulin Human Lispro 10 UNIT AC 09/16 0730 AC 09/18 SUBQ 10/16 0729 0932 Insulin Glargine 20 UNIT BEDTIME 09/15 2100 AC 09/17 SUBQ 10/15 2058 210 Insulin Human Lispro 0 AC HS [...] Oxide 1 APPLIC DAILY 09/04 09 AC 09/18 TOPICAL 10/04 0859 0936 Vitamins [...] Quintero on 09/18/22 at 2036 at 2300 [facility] #:[id number] OF REPORTPRProgress yjbr9796-34-39V32:37:00G.RFUT28110622-5087D VAvailable for patient pehsQXYITOAQGLGEAS5076-94-83D06:00:23 [facility] 2022-09-18 07:55:00 [id number]+DOtQLIqLYl9V1+UzAZD1Y +ZE Mm+bQwCbWv0KOM+03tu5Q4DtsFxK4AnoP5255-20-18 T07:55:00 [facility] Progress NoteREPORT#:[id number] REPORT STATUS: SignedDATE:09/18/22 TIME: 0755 PATIENT: KARMA ROWLAND UNIT #: [id number]#: [id number] [address] AGE: 56 SEX: M ATTEND: [facility] AUTHOR: Barrera Ramírez MD * ALL edits [...] non-tender, no edemaMusculoskeletal: no CVA tenderness, no tendernessNeuro/CONTRACT RUNNER: alert, 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 Considered stroke alert: noSkin: [...] - 32.0 %) 17.4 10.2 L 18.6 [place] % (Auto) (4.8 - 9.0 %) 6.9 2.9 L 6.7 Eos % (Auto) (0.3 - 3.7 %) 0.1 L 0.0 L 0.2 L Baso % (Auto) (0.0 - 2.0 %) 0.1 0.1 0.1 Neut # (Auto) (2.0 - 7.6 x10 3/uL) 7.91 H 7.58 6.99 Lymph # (Auto) (1.0 - 3.8 x10 3/uL) 1.85 0.91 L 1.77 [place] # (Auto) (0.1 - 0.8 x10 3/uL) [...] pH (5.0 - 7.0) 5.0 Ur Specific [place] (1.005 - 1.030) 1.013 Urine Protein (NEGATIVE) [...] Random Total Protein (mg/dL) 283 Laboratory Tests 09/1826 0540 0505 1904 1554 1027 Chemistry Sodium [...] % (Auto) (14.0 - 32.0 %) 17.4 [place] % (Auto) (4.8 - 9.0 %) 6.9 Eos % (Auto) (0.3 - 3.7 %) 0.1 L Baso % (Auto) (0.0 - 2.0 %) 0.1 Neut # (Auto) (2.0 - 7.6 x10 3/uL) 7.91 H Lymph # (Auto) (1.0 - 3.8 x10 3/uL) 1.85 [place] # (Auto) (0.1 - 0.8 x10 3/uL) [...] endocrinology, hospitalist, infectious disease, podiatry at 1005 RPT #:[id number] OF REPORTPRProgress pchm8609-60-34O10:55:00G.SGNB27340710-0122J VAvailable for patient hskdSRKYDTBNFLCDUN6059-90-76L70:06:21 [facility] 2022-09-17 20:38:00 [id number]+3EH /QN rvNobbt1PckV90lWvFeEch/dDCFxN+fWG1043-66-31 T20:38:00 [facility])Podiatry Progress NoteREPORT#:[id number] REPORT STATUS: SignedDATE:09/17/22 TIME: 2037 PATIENT: KARMA ROWLAND UNIT #: [id number]#: [id number] [address] [birth year] AGE: 56 SEX: M ATTEND: Mj Vences [facility] AUTHOR: Liam Pedersen DPM * ALL edits [...] 1836 Pulse 90 09/17 1836 Resp 16 04/26 1837 O2 Flow Rate 2 09/08 1322 [...] (Auto) (14.0 - 32.0 %) 10.2 L [place] % (Auto) (4.8 - 9.0 %) 2.9 L Eos % (Auto) (0.3 - 3.7 %) 0.0 L Baso % (Auto) (0.0 - 2.0 %) 0.1 Neut # (Auto) (2.0 - 7.6 x10 3/uL) 7.58 Lymph # (Auto) (1.0 - 3.8 x10 3/uL) 0.91 L [place] # (Auto) (0.1 - 0.8 x10 3/uL) [...] hospitalist, infectious disease, podiatry at 2039 RPT #:[id number] OF REPORTPRProgress pjsc1653-73-70A77:38:00G.[id number] VAvailable for patient otmuKWQDXTCQJPLIJU7731-81-50B60:39:35 [facility] 2022-09-17 18:25:00 [id number]/HL1szPUX9UQcoRxe3s56Ng5w ItX yQRREYk28+l12HimdKk61quU79ScShcg63676-90-71 T18:25:00 [facility] ([facility])Endocrinology Progress NoteREPORT#:[id number] REPORT STATUS: SignedDATE:09/17/22 TIME: 1824 PATIENT: KARMA ROWLAND UNIT #: [id number]#: [id number] [address] AGE: 56 SEX: M ATTEND: [...] (Auto) (14.0 - 32.0 %) 10.2 L [place] % (Auto) (4.8 - 9.0 %) 2.9 L Eos % (Auto) (0.3 - 3.7 %) 0.0 L Baso % (Auto) (0.0 - 2.0 %) 0.1 Neut # (Auto) (2.0 - 7.6 x10 3/uL) 7.58 Lymph # (Auto) (1.0 - 3.8 x10 3/uL) 0.91 L [place] # (Auto) (0.1 - 0.8 x10 3/uL) [...] % (Auto) (14.0 - 32.0 %) 18.6 [place] % (Auto) (4.8 - 9.0 %) 6.7 Eos % (Auto) (0.3 - 3.7 %) 0.2 L Baso % (Auto) (0.0 - 2.0 %) 0.1 Neut # (Auto) (2.0 - 7.6 x10 3/uL) 6.99 Lymph # (Auto) (1.0 - 3.8 x10 3/uL) 1.77 [place] # (Auto) (0.1 - 0.8 x10 3/uL) [...] pH (5.0 - 7.0) 5.0 Ur Specific [place] (1.005 - 1.030) 1.013 Urine Protein (NEGATIVE) [...] (Auto) (14.0 - 32.0 %) 11.3 L [place] % (Auto) (4.8 - 9.0 %) 3.2 L Eos % (Auto) (0.3 - 3.7 %) 0.0 L Baso % (Auto) (0.0 - 2.0 %) 0.1 Neut # (Auto) (2.0 - 7.6 x10 3/uL) 7.35 Lymph # (Auto) (1.0 - 3.8 x10 3/uL) 0.98 L [place] # (Auto) (0.1 - 0.8 x10 3/uL) [...] (Auto) (14.0 - 32.0 %) 13.9 L [place] % (Auto) (4.8 - 9.0 %) 5.1 Eos % (Auto) (0.3 - 3.7 %) 0.0 L Baso % (Auto) (0.0 - 2.0 %) 0.1 Neut # (Auto) (2.0 - 7.6 x10 3/uL) 7.58 Lymph # (Auto) (1.0 - 3.8 x10 3/uL) 1.31 [place] # (Auto) (0.1 - 0.8 x10 3/uL) [...] H Laboratory Tests: 09/13 09/13 09/13 09/12 1100 0504 0028 2016 Chemistry Sodium (134 - 147 mEq/L) [...] (Auto) (14.0 - 32.0 %) 10.4 L [place] % (Auto) (4.8 - 9.0 %) 3.5 L Eos % (Auto) (0.3 - 3.7 %) 0.0 L Baso % (Auto) (0.0 - 2.0 %) 0.1 Neut # (Auto) (2.0 - 7.6 x10 3/uL) 8.34 H Lymph # (Auto) (1.0 - 3.8 x10 3/uL) 1.02 [place] # (Auto) (0.1 - 0.8 x10 3/uL) [...] Date/Time Procedure - Status Source Growth 09/13 6688 MRSA DNA Surveillance Screen - RECD NASAL [...] % (Auto) (14.0 - 32.0 %) 15.0 [place] % (Auto) (4.8 - 9.0 %) 7.9 Eos % (Auto) (0.3 - 3.7 %) 3.8 H Baso % (Auto) (0.0 - 2.0 %) 0.3 Neut # (Auto) (2.0 - 7.6 x10 3/uL) 6.34 Lymph # (Auto) (1.0 - 3.8 x10 3/uL) 1.31 [place] # (Auto) (0.1 - 0.8 x10 3/uL) [...] % (Auto) (14.0 - 32.0 %) 16.1 [place] % (Auto) (4.8 - 9.0 %) 9.1 H Eos % (Auto) (0.3 - 3.7 %) 5.6 H Baso % (Auto) (0.0 - 2.0 %) 0.5 Neut # (Auto) (2.0 - 7.6 x10 3/uL) 5.35 Lymph # (Auto) (1.0 - 3.8 x10 3/uL) 1.27 [place] # (Auto) (0.1 - 0.8 x10 3/uL) [...] % (Auto) (14.0 - 32.0 %) 15.5 [place] % (Auto) (4.8 - 9.0 %) 8.5 Eos % (Auto) (0.3 - 3.7 %) 5.5 H Baso % (Auto) (0.0 - 2.0 %) 0.4 Neut # (Auto) (2.0 - 7.6 x10 3/uL) 5.94 Lymph # (Auto) (1.0 - 3.8 x10 3/uL) 1.33 [place] # (Auto) (0.1 - 0.8 x10 3/uL) [...] 0.1 0.00x10 3/uL)Toxicology Random Vancomycin (mcg/mL) 15.7 19 09/09 0541 1911 Chemistry POC Glucose (70 [...] % (Auto) (14.0 - 32.0 %) 16.1 [place] % (Auto) (4.8 - 9.0 %) 9.2 H Eos % (Auto) (0.3 - 3.7 %) 4.7 H Baso % (Auto) (0.0 - 2.0 %) 0.4 Neut # (Auto) (2.0 - 7.6 x10 3/uL) 6.38 Lymph # (Auto) (1.0 - 3.8 x10 3/uL) 1.49 [place] # (Auto) (0.1 - 0.8 x10 3/uL) [...] (Auto) (14.0 - 32.0 %) 13.7 L [place] % (Auto) (4.8 - 9.0 %) 7.2 Eos % (Auto) (0.3 - 3.7 %) 4.8 H Baso % (Auto) (0.0 - 2.0 %) 0.3 Neut # (Auto) (2.0 - 7.6 x10 3/uL) 6.64 Lymph # (Auto) (1.0 - 3.8 x10 3/uL) 1.24 [place] # (Auto) (0.1 - 0.8 x10 3/uL) [...] insulin dose.PT and OT. at 1826 RPT #:[id number] OF REPORTPRProgress yoow5436-06-97C20:25:00G.[id number] VAvailable for patient kowsEFKEDCQJNRJQBX2168-74-71E35:26:23 [facility] 2022-09-17 15:00:00 [id number]+7fFgacxKZNOq32KvdsI55Ttr 16h 22MMSqiSOndzDCjvXIWyvfgLbVrpDLYFn4474-22-05 T15:00:00 [facility] Progress NoteREPORT#:[id number] REPORT STATUS: SignedDATE:09/17/22 TIME: 1500 PATIENT: KARMA ROWLAND UNIT #: [id number]#: [id number] [address] AGE: 56 SEX: M ATTEND: [...] hospitalist, infectious disease, podiatry at 1500 RPT #:[id number] OF REPORTPRProgress vacx0194-21-96U70:00:00G.VWVX51801213-7512R VAvailable for patient cohmAAJUAXZVTRUYAB5723-21-90Q66:00:57 [facility] 2022-09-17 13:09:00 [id number]/ms4vHYY9jxvHgWVps 2sf fcZ1CuWhoFMrh1196Lmko5c77w4aPKjdH6002-29-67 T13:09:00 [facility] ([facility])Pain Management Progress NoteREPORT#:[id number] REPORT STATUS: SignedDATE:09/17/22 TIME: 1309 PATIENT: KARMA ROWLAND UNIT #: [id number]#: [id number] [address] AGE: 56 SEX: M ATTEND: Mj Vences [facility] AUTHOR: Ben Klein * ALL edits or [...] bowel soundsExtremities: moves all, no edema, pedal pulsesNeuro/CONTRACT RUNNER: 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, no sensory deficits, CNII-XII [...] (Auto) (14.0 - 32.0 %) 10.2 L [place] % (Auto) (4.8 - 9.0 %) 2.9 L Eos % (Auto) (0.3 - 3.7 %) 0.0 L Baso % (Auto) (0.0 - 2.0 %) 0.1 Neut # (Auto) (2.0 - 7.6 x10 3/uL) 7.58 Lymph # (Auto) (1.0 - 3.8 x10 3/uL) 0.91 L [place] # (Auto) (0.1 - 0.8 x10 3/uL) [...] to comorbid conditions-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 every 4 hours [...] pain , gabapentin 100mg q8h sent to [facility][id number] [place] [address] ([facility] [place]) Patient has failed conservative medical therapy.Patient will [...] whom agrees. Thank you for the consultation. 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 I personally developed the care plan, which was continued by the mid-level provider. I was immediately available. at 1902 at 1737 [facility] #:[id number] OF REPORTPRProgress waei4411-46-76S75:09:00G.CBHY32681730-2855Q VAvailable for patient kcaeNVKXEDRUDTNLXS2878-08-11L78:03:12 [facility] 2022-09-17 12:37:00 [id number]fi8X 6SR ctF2o2KRLunTXFId7PoNtxR3jtRXTbNTz2408-83-81 T12:37:00 [facility] ([facility])Hospitalist Progress NoteREPORT#:[id number] REPORT STATUS: SignedDATE:09/17/22 TIME: 1237 PATIENT: KARMA ROWLAND UNIT #: [id number]#: [id number] [address] AGE: 56 SEX: M ATTEND: Mj Vences [facility] AUTHOR: Meera Chavira DO * ALL edits [...] thigh), moves all, normal capillary refillMusculoskeletal: normal inspectionNeuro/CONTRACT RUNNER: alert, oriented X 3, 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 Considered [...] (Auto) (14.0 - 32.0 %) 10.2 L [place] % (Auto) (4.8 - 9.0 %) 2.9 L Eos % (Auto) (0.3 - 3.7 %) 0.0 L Baso % (Auto) (0.0 - 2.0 %) 0.1 Neut # (Auto) (2.0 - 7.6 x10 3/uL) 7.58 Lymph # (Auto) (1.0 - 3.8 x10 3/uL) 0.91 L [place] # (Auto) (0.1 - 0.8 x10 3/uL) [...] stabilized. continue to monitor at 1240 RPT #:[id number] OF REPORTPRProgress qdgb5586-50-21H06:37:00G.KECK07460786-6767D VAvailable for patient szacLSNYICNKRQLHQZ2627-36-77C42:40:34 [facility] 2022-09-17 12:10:00 [id number]OHDb uqz NYzGnJlQK36l+XSqtawyZz5QQN+kDxu825236-95-31 T12:10:00 [facility] ([facility])Infectious Dis. Progress NoteREPORT#:[id number] REPORT STATUS: SignedDATE:09/17/22 TIME: 1210 PATIENT: KARMA ROWLAND UNIT #: [id number]#: [id number] [address] AGE: 56 SEX: M ATTEND: Mj Vences [facility] AUTHOR: Linda Anderson MD * ALL edits [...] right BKA Left foot wound +dressing in placeNeuro/CONTRACT RUNNER: alert, oriented X 3 Considered stroke alert: [...] (Auto) (14.0 - 32.0 %) 10.2 L [place] % (Auto) (4.8 - 9.0 %) 2.9 L Eos % (Auto) (0.3 - 3.7 %) 0.0 L Baso % (Auto) (0.0 - 2.0 %) 0.1 Neut # (Auto) (2.0 - 7.6 x10 3/uL) 7.58 Lymph # (Auto) (1.0 - 3.8 x10 3/uL) 0.91 L [place] # (Auto) (0.1 - 0.8 x10 3/uL) [...] (Auto) (14.0 - 32.0 %) 10.2 L [place] % (Auto) (4.8 - 9.0 %) 2.9 L Eos % (Auto) (0.3 - 3.7 %) 0.0 L Baso % (Auto) (0.0 - 2.0 %) 0.1 Neut # (Auto) (2.0 - 7.6 x10 3/uL) 7.58 Lymph # (Auto) (1.0 - 3.8 x10 3/uL) 0.91 L [place] # (Auto) (0.1 - 0.8 x10 3/uL) [...] % (Auto) (14.0 - 32.0 %) 18.6 [place] % (Auto) (4.8 - 9.0 %) 6.7 Eos % (Auto) (0.3 - 3.7 %) 0.2 L Baso % (Auto) (0.0 - 2.0 %) 0.1 Neut # (Auto) (2.0 - 7.6 x10 3/uL) 6.99 Lymph # (Auto) (1.0 - 3.8 x10 3/uL) 1.77 [place] # (Auto) (0.1 - 0.8 x10 3/uL) [...] pH (5.0 - 7.0) 5.0 Ur Specific [place] (1.005 - 1.030) 1.013 Urine Protein (NEGATIVE) [...] Q12HR 09/15 2100 AC 09/17 SUBQ 10/15 2058 09 Cardiovascular Drugs Sig/Jan Start time Last Medication Dose Route Stop Time Status Admin Hydralazine HCl 50 MG Q8HR 09/17 1400 AC PO 10/17 1359 Hydralazine HCl 25 MG Q8HR 09/16 1400 DC 09/17 PO 10/16 1359 0455 Carvedilol 25 MG C BK DIN 09/13 1700 AC 09/17 PO 10/13 165 0900 Hydralazine HCl 10 MG Q6H PRN [...] Sodium 40 MG Q12HR 09/05 09 AC 09/17 IV 10/05 0859 0859 Polyethylene Glycol 17 GM DAILY 09/05 899 AC 09/17 PO 10/05 0859 0901 Sennosides 8.6 MG DAILY 09/05 09 AC 09/17 PO 10/05 0859 0900 Bisacodyl [...] BEDTIME 09/15 2100 AC 09/16 SUBQ 10/15 205 2059 Insulin Human Lispro 0 AC HS 09/03 [...] Jill Quintero on 09/17/22 at 1514 at 8168 RPT #:[id number] OF REPORTPRProgress nizh7284-90-58D98:10:00G.QTPE25890601-1537N VAvailable for patient afbtLQLVEJZRTSPGHZ5566-00-39I76:43:52 [facility] 2022-09-17 10:34:00 [id number]SSw3DuTeC zZG F9FsrnZNeb4DNEY7jg7EzYPxqP5xzQub53006-51-49 T10:34:00 [facility] (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 * ALL edits or amendments must be [...] 60 1485 Output Total 2175 1950 Balance -2114465 Intake, Oral 60 1485 Number 1 Bowel Movements Number 0 0 Incontinent Voids Number Voids 0 0 Output, Urine 2175 1950 Patient 178 lb Weight Weight Bed [...] soft, non-tenderLower extremity: LE assessment: edema, normal temperatureNeuro/CONTRACT RUNNER: alert, oriented X 3 Considered stroke alert: [...] (Auto) (14.0 - 32.0 %) 10.2 L [place] % (Auto) (4.8 - 9.0 %) 2.9 L Eos % (Auto) (0.3 - 3.7 %) 0.0 L Baso % (Auto) (0.0 - 2.0 %) 0.1 Neut # (Auto) (2.0 - 7.6 x10 3/uL) 7.58 Lymph # (Auto) (1.0 - 3.8 x10 3/uL) 0.91 L [place] # (Auto) (0.1 - 0.8 x10 3/uL) [...] discussed with patient, RN andDr. Parham. Napoleon Parham 09/18/22 0859:Diagnosis, Assessment PlanAdditional comments:Agree with above assessment and plan as documented by nurse practitioner, continue current management, will follow. at 1751 at 0903 RPT #:[id number] OF REPORTPRProgress vani9741-02-11C39:34:00G.HXSE26696966-7114K VAvailable for patient nfisGLXQLJJQPODEKB0277-57-38Y46:51:44 [facility] 2022-09-17 07:13:00 [id number]Zgyd owi asL2wwtA4Xx+OBQ0J7UHedfTiSVOCXzN/2022-09-17 T07:13:00 [facility] ([facility])Nephrology Progress NoteREPORT#:[id number] REPORT STATUS: SignedDATE:09/17/22 TIME: 712 PATIENT: KARMA ROWLAND UNIT #: [id number]#: [id number] [address] AGE: 56 SEX: M ATTEND: Mj Vences [facility] AUTHOR: Barrera Ramírez MD * ALL edits [...] non-tender, no edemaMusculoskeletal: no CVA tenderness, no tendernessNeuro/CONTRACT RUNNER: alert, 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 Considered stroke alert: noSkin: [...] H 290 H Laboratory Tests 09/16 09/15 4145 0502 Hematology WBC (4.5 - 11.0 x10 3/uL) [...] (14.0 - 32.0 %) 18.6 11.3 L [place] % (Auto) (4.8 - 9.0 %) 6.7 3.2 L Eos % (Auto) (0.3 - 3.7 %) 0.2 L 0.0 L Baso % (Auto) (0.0 - 2.0 %) 0.1 0.1 Neut # (Auto) (2.0 - 7.6 x10 3/uL) 6.99 7.35 Lymph # (Auto) (1.0 - 3.8 x10 3/uL) 1.77 0.98 L [place] # (Auto) (0.1 - 0.8 x10 3/uL) [...] pH (5.0 - 7.0) 5.0 Ur Specific [place] (1.005 - 1.030) 1.013 Urine Protein (NEGATIVE) [...] hospitalist, infectious disease, podiatry at 0925 RPT #:[id number] OF REPORTPRProgress oiua8925-33-34B97:13:00G.[id number] VAvailable for patient iskcZJFCUOWUWFGZYO5113-54-80T54:25:27 [facility] 2022-09-17 07:13:00 [id number]/U5+MtCq2vW9 Oye t2uHYTwVzYBqSFGXn8Sv7w3g0r6RKoR4C0847-99-92 T07:13:00 [facility] Progress NoteREPORT#:[id number] REPORT STATUS: SignedDATE:09/17/22 TIME: 0713 PATIENT: KARMA ROWLAND UNIT #: [id number]#: [id number] [address] AGE: 56 SEX: M ATTEND: Mj Vences MDADM AUTHOR: Guero Candelaria * ALL edits or amendments must be made on the electronic/computer document * SubjectiveChief complaint:Rehab follow-upFeels good todayMaking good progressStill has edema of BLE and scrotumEating 75-100% at bedside+ BMDenies CARRASCO/N/V/D/CP14 systems reviewed and neg. except that above.History [...] AND CGA FOR STEADYING. PATIENT WORKED ON MOB WITH MOD I 200 FEET . [...] homans neg), BUE 5/5, LLE4/5, R hip 3-Neuro/CONTRACT RUNNER: alert, oriented X 3, CNII-XII intact ResultsFindings/Data:Laboratory [...] 32.0 %) 10.2 L 18.6 11.3 L [place] % (Auto) (4.8 - 9.0 %) 2.9 L 6.7 3.2 L Eos % (Auto) (0.3 - 3.7 %) 0.0 L 0.2 L 0.0 L Baso % (Auto) (0.0 - 2.0 %) 0.1 0.1 0.1 Neut # (Auto) (2.0 - 7.6 x10 3/uL) 7.58 6.99 7.35 Lymph # (Auto) (1.0 - 3.8 x10 3/uL) 0.91 L 1.77 0.98 L [place] # (Auto) (0.1 - 0.8 x10 3/uL) [...] pH (5.0 - 7.0) 5.0 Ur Specific [place] (1.005 - 1.030) 1.013 Urine Protein (NEGATIVE) [...] than 5, dietaryconsultation, protein supplements to promote kwfewtd-Jdlvvfrw-M8h 14, tight glycemia control- endocrine on board, insulin adjustments-Endocrinology, ID, podiatry, cardiology, IM consulted-Pain management adjusting pain medications-Anemia, patient required multiple units of PRBCs on acute, FOBT positive-IV Protonix-consult GI-serial H H-no evidence of gross bleeding-discussed with Dr. TrinidadSdcclcbu-Cyfxesidqxsw-dmlyxywax dfzdqvym-MBC-odouhg-CW Senokot and MiraLAX, DSP-Right EJU-dxgzawj-hwzztfkl resolved, dressings changed ervcr-aovkbzi-ahycrpte KXR-XGEL-QDKP OF NARES on Bactroban protocol-LLE edema-venous Doppler [...] of LLE-negative for DVT-Joan wrap dressing and hlaxtzppp-Ehkcji-nfgimtrejj 8.3, 7.7, 8.2, transfused 2 units of [...] 3-as per renal-on Merrem and Daptomycin til 5/3 as per ID-Lasix as per nephrology-Completed Xlkw-Brjwwg-Ayeeh LLE swelling (not new) and low albumin. may benefit from albumin infusion+ Itkks-OCU-ubiwcflbq opacities in the right mid and lower [...] with interdisciplinary treatment plan. at 1847 RPT #:[id number] OF REPORTPRProgress [id number]:13:00G.[id number] VAvailable for patient suhjXFYRHOWYXRQXEG6842-93-53N70:48:06 [facility] 2022-09-16 20:09:00 [id number]/x3UJxvBrHJ mtN Jtumr9gYeLH/BxRDTgNLwn7P6gzySW3ZS7378-57-40 T20:09:00 [facility])Podiatry Progress NoteREPORT#:[id number] REPORT STATUS: SignedDATE:09/16/22 TIME: 2008 PATIENT: KARMA ROWLAND UNIT #: [id number]#: [id number] [address] AGE: 56 SEX: M ATTEND: [...] O:24 hour I O ending at 0700: 25 0700 04/24 1900 Intake Total 200 1060 Output Total [...] % (Auto) (14.0 - 32.0 %) 18.6 [place] % (Auto) (4.8 - 9.0 %) 6.7 Eos % (Auto) (0.3 - 3.7 %) 0.2 L Baso % (Auto) (0.0 - 2.0 %) 0.1 Neut # (Auto) (2.0 - 7.6 x10 3/uL) 6.99 Lymph # (Auto) (1.0 - 3.8 x10 3/uL) 1.77 [place] # (Auto) (0.1 - 0.8 x10 3/uL) [...] hospitalist, infectious disease, podiatry at 2009 RPT #:[id number] OF REPORTPRProgress ipup4537-92-80F80:09:00G.[id number] VAvailable for patient dhmeNHGRTZINYUQFDT2465-48-34R18:10:56 [facility] 2022-09-16 17:23:00 [id number] Waleska diXr2b3MacPxpYsPLk1uHDS8ylyyp21AR6997-33-23 T17:23:00 [facility] NoteREPORT#:[id number] REPORT STATUS: SignedDATE:09/16/22 TIME: 172 PATIENT: KARMA ROWLAND UNIT #: [id number]#: [id number] [address] [birth year] AGE: 56 SEX: M ATTEND: [...] L 148 H 195 H 09/16 09/15 4769 1937 Chemistry Sodium (134 - 147 mEq/L) [...] % (Auto) (14.0 - 32.0 %) 18.6 [place] % (Auto) (4.8 - 9.0 %) 6.7 Eos % (Auto) (0.3 - 3.7 %) 0.2 L Baso % (Auto) (0.0 - 2.0 %) 0.1 Neut # (Auto) (2.0 - 7.6 x10 3/uL) 6.99 Lymph # (Auto) (1.0 - 3.8 x10 3/uL) 1.77 [place] # (Auto) (0.1 - 0.8 x10 3/uL) [...] pH (5.0 - 7.0) 5.0 Ur Specific [place] (1.005 - 1.030) 1.013 Urine Protein (NEGATIVE) [...] (Auto) (14.0 - 32.0 %) 11.3 L [place] % (Auto) (4.8 - 9.0 %) 3.2 L Eos % (Auto) (0.3 - 3.7 %) 0.0 L Baso % (Auto) (0.0 - 2.0 %) 0.1 Neut # (Auto) (2.0 - 7.6 x10 3/uL) 7.35 Lymph # (Auto) (1.0 - 3.8 x10 3/uL) 0.98 L [place] # (Auto) (0.1 - 0.8 x10 3/uL) [...] 09/14 09/14 09/14 09/13 1130 0736 0526 0549 1937Chemistry Sodium (134 - 147 mEq/L) 132 [...] (Auto) (14.0 - 32.0 %) 13.9 L [place] % (Auto) (4.8 - 9.0 %) 5.1 Eos % (Auto) (0.3 - 3.7 %) 0.0 L Baso % (Auto) (0.0 - 2.0 %) 0.1 Neut # (Auto) (2.0 - 7.6 x10 3/uL) 7.58 Lymph # (Auto) (1.0 - 3.8 x10 3/uL) 1.31 [place] # (Auto) (0.1 - 0.8 x10 3/uL) [...] H Laboratory Tests: 09/13 09/13 09/13 09/12 2076 4048 7986 2016 Chemistry Sodium (134 - 147 mEq/L) [...] (Auto) (14.0 - 32.0 %) 10.4 L [place] % (Auto) (4.8 - 9.0 %) 3.5 L Eos % (Auto) (0.3 - 3.7 %) 0.0 L Baso % (Auto) (0.0 - 2.0 %) 0.1 Neut # (Auto) (2.0 - 7.6 x10 3/uL) 8.34 H Lymph # (Auto) (1.0 - 3.8 x10 3/uL) 1.02 [place] # (Auto) (0.1 - 0.8 x10 3/uL) [...] % (Auto) (14.0 - 32.0 %) 15.0 [place] % (Auto) (4.8 - 9.0 %) 7.9 Eos % (Auto) (0.3 - 3.7 %) 3.8 H Baso % (Auto) (0.0 - 2.0 %) 0.3 Neut # (Auto) (2.0 - 7.6 x10 3/uL) 6.34 Lymph # (Auto) (1.0 - 3.8 x10 3/uL) 1.31 [place] # (Auto) (0.1 - 0.8 x10 3/uL) [...] % (Auto) (14.0 - 32.0 %) 16.1 [place] % (Auto) (4.8 - 9.0 %) 9.1 H Eos % (Auto) (0.3 - 3.7 %) 5.6 H Baso % (Auto) (0.0 - 2.0 %) 0.5 Neut # (Auto) (2.0 - 7.6 x10 3/uL) 5.35 Lymph # (Auto) (1.0 - 3.8 x10 3/uL) 1.27 [place] # (Auto) (0.1 - 0.8 x10 3/uL) [...] % (Auto) (14.0 - 32.0 %) 15.5 [place] % (Auto) (4.8 - 9.0 %) 8.5 Eos % (Auto) (0.3 - 3.7 %) 5.5 H Baso % (Auto) (0.0 - 2.0 %) 0.4 Neut # (Auto) (2.0 - 7.6 x10 3/uL) 5.94 Lymph # (Auto) (1.0 - 3.8 x10 3/uL) 1.33 [place] # (Auto) (0.1 - 0.8 x10 3/uL) [...] % (Auto) (14.0 - 32.0 %) 16.1 [place] % (Auto) (4.8 - 9.0 %) 9.2 H Eos % (Auto) (0.3 - 3.7 %) 4.7 H Baso % (Auto) (0.0 - 2.0 %) 0.4 Neut # (Auto) (2.0 - 7.6 x10 3/uL) 6.38 Lymph # (Auto) (1.0 - 3.8 x10 3/uL) 1.49 [place] # (Auto) (0.1 - 0.8 x10 3/uL) [...] (Auto) (14.0 - 32.0 %) 13.7 L [place] % (Auto) (4.8 - 9.0 %) 7.2 Eos % (Auto) (0.3 - 3.7 %) 4.8 H Baso % (Auto) (0.0 - 2.0 %) 0.3 Neut # (Auto) (2.0 - 7.6 x10 3/uL) 6.64 Lymph # (Auto) (1.0 - 3.8 x10 3/uL) 1.24 [place] # (Auto) (0.1 - 0.8 x10 3/uL) [...] Sepsis5. Prostate abscess.6. AnemiaBlood sugar 175-148 mg/dL.H/H 8.6/.Adjust insulin dose.PT and OT. at 1724 RPT #:[id number] OF REPORTPRProgress [id number]:23:00G.[id number] VAvailable for patient jgxhHJWXONWJYCDUJM5430-32-39C68:24:39 [facility] 2022-09-16 15:04:00 [id number]ntOz y5W sbjaDchi1fbfpz3z1XRQrLdKdWn6wcNMg6421-99-73 T15:04:00 [facility])Rehab Team ConferenceREPORT#:[id number] REPORT STATUS: SignedDATE:09/16/22 TIME: 1504 PATIENT: KARMA ROWLAND UNIT #: [id number]#: [id number] [address] AGE: 56 SEX: M ATTEND: Mj Vences [facility] AUTHOR: Mj Vences MD * ALL edits or amendments must be made on the electronic/computer document * Rehabilitation Team Conference Weekly Team ConferenceTeam conf information:Date of conference: 09/16/22Conference type: InterimConference scribe: Columba Drew PTA INTERDISCIPLINARY TEAM MEETING PARTICIPANTS: TITLE NAME MD SELENA Butts, RN KELLY Ro, PT OT Williams Mckeon OT CM/TRINO Burger NO ATTENDEE [facility] Amanda Lai, KEVIN Staff (8) NO ATTENDEE [...] BUILDING A RAMP. 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 ([facility])Gastroenterology Progress NoteREPORT#:[id number] REPORT STATUS: SignedDATE:09/16/22 TIME: 1429 PATIENT: KARMA ROWLAND UNIT #: [id number]#: [id number] [address] [birth year] AGE: 56 SEX: M ATTEND: [...] hospitalist, infectious disease, podiatry at 1429 RPT #:[id number] OF REPORTPRProgress itwn0429-20-34Q30:29:00G.PQSE32185140-0190U VAvailable for patient sonnXBVAYIYHMSIVBB1095-69-81X46:29:51 [facility] 2022-09-16 11:19:00 [id number]/rx/ yqN /wgnuIdCHnZxYz4/N4k35XgL/PJUG9szZ9290-06-53 T11:19:00 [facility] ([facility])Infectious Dis. Progress NoteREPORT#:[id number] REPORT STATUS: SignedDATE:09/16/22 TIME: 1119 PATIENT: KARMA ROWLAND UNIT #: [id number]#: [id number] ROOM/BED: [facility] [place]DOB: [birth year] AGE: 56 SEX: M ATTEND: Mj Vences [facility] AUTHOR: Linda Anderson MD * ALL edits [...] right BKA Left foot wound +dressing in placeNeuro/CONTRACT RUNNER: alert, oriented X 3 Considered stroke alert: [...] til 5/3 for treatment of prostate abscess cefepime and vancomycin til 5/3 for treatment of prostate abscesscheck esr and crp in am cefepime and vancomycin til 5/3 for treatment [...] on 09/16/22 at 1915 at 2255 RPT #:[id number] OF REPORTPRProgress wewg4880-32-03S34:19:00G.DWIW54345654-7598R VAvailable for patient sozqWFYOPKIDSLBUOB7741-71-80V47:55:34 [facility] 2022-09-16 09:52:00 [id number]+f0IHo6na3K3G+LkFlAIB/VF 4TH gP2Qe3kTggjQ709E1yeC46mpFU4xOxsri9939-14-85 T09:52:00 [facility])Cardiology Progress NoteREPORT#:[id number] REPORT STATUS: SignedDATE:09/16/22 TIME: 951 PATIENT: KARMA ROWLAND UNIT #: [id number]#: [id number] [address] AGE: 56 SEX: M ATTEND: Mj Vences MDA AUTHOR: Rohit Benitez MACHINIST APPRENTICE WOOD * ALL edits or amendments must be [...] O2 Flow FiO2 Mean Ox Delivery Rate 04/25 0722 97.3 77 18 159/79 105.3 96 [...] soft, non-tenderLower extremity: LE assessment: edema, normal temperatureNeuro/CONTRACT RUNNER: alert, oriented X 3 Considered stroke alert: [...] % (Auto) (14.0 - 32.0 %) 18.6 [place] % (Auto) (4.8 - 9.0 %) 6.7 Eos % (Auto) (0.3 - 3.7 %) 0.2 L Baso % (Auto) (0.0 - 2.0 %) 0.1 Neut # (Auto) (2.0 - 7.6 x10 3/uL) 6.99 Lymph # (Auto) (1.0 - 3.8 x10 3/uL) 1.77 [place] # (Auto) (0.1 - 0.8 x10 3/uL) [...] pH (5.0 - 7.0) 5.0 Ur Specific [place] (1.005 - 1.030) 1.013 Urine Protein (NEGATIVE) [...] will follow. at 1617 at 0902 RPT #:[id number] OF REPORTPRProgress dcer1359-50-73S58:52:00G.MEFU92821573-6261W VAvailable for patient nkjuAECZBHTBGHYMEX2252-34-71S05:17:49 [facility] 2022-09-16 08:17:00 [id number]+DoVuipcW1b7JxX9AxH8spe7 T EPiQPCfhjWkvhRqlyu7IYQDvCwVtM+gAe6539-02-64 T08:17:00 [facility] ([facility])Nephrology Progress NoteREPORT#:[id number] REPORT STATUS: SignedDATE:09/16/22 TIME: 08 PATIENT: KARMA ROWLAND UNIT #: [id number]#: [id number] [address] AGE: 56 SEX: M ATTEND: Mj Vences [facility] AUTHOR: Barrera Ramírez MD * ALL edits [...] non-tender, no edemaMusculoskeletal: no CVA tenderness, no tendernessNeuro/CONTRACT RUNNER: alert, 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 Considered stroke alert: noSkin: [...] 09/15 09/15 09/14 09/14 09/14 0519 0515 1930 1543 1130 Chemistry Sodium (134 - 147 [...] 32.0 %) 18.6 11.3 L 13.9 L [place] % (Auto) (4.8 - 9.0 %) 6.7 3.2 L 5.1 Eos % (Auto) (0.3 - 3.7 %) 0.2 L 0.0 L 0.0 L Baso % (Auto) (0.0 - 2.0 %) 0.1 0.1 0.1 Neut # (Auto) (2.0 - 7.6 x10 3/uL) 6.99 7.35 7.58 Lymph # (Auto) (1.0 - 3.8 x10 3/uL) 1.77 0.98 L 1.31 [place] # (Auto) (0.1 - 0.8 x10 3/uL) [...] pH (5.0 - 7.0) 5.0 Ur Specific [place] (1.005 - 1.030) 1.013 Urine Protein (NEGATIVE) [...] % (Auto) (14.0 - 32.0 %) 18.6 [place] % (Auto) (4.8 - 9.0 %) 6.7 Eos % (Auto) (0.3 - 3.7 %) 0.2 L Baso % (Auto) (0.0 - 2.0 %) 0.1 Neut # (Auto) (2.0 - 7.6 x10 3/uL) 6.99 Lymph # (Auto) (1.0 - 3.8 x10 3/uL) 1.77 [place] # (Auto) (0.1 - 0.8 x10 3/uL) [...] pH (5.0 - 7.0) 5.0 Ur Specific [place] (1.005 - 1.030) 1.013 Urine Protein (NEGATIVE) [...] hospitalist, infectious disease, podiatry at 1046 RPT #:[id number] OF REPORTPRProgress tsam8076-17-13Y96:17:00G.UXWH36067134-5376T VAvailable for patient nwyjBVORBDILBYJOVW8555-91-52N75:46:21 [facility] 2022-09-16 07:51:00 [id number]sNO4 tj1 P3jMowicCgStPtW83BJwZnCVl0SFo4ljE0684-55-34 T07:51:00 [facility] Progress NoteREPORT#:[id number] REPORT STATUS: SignedDATE:09/16/22 TIME: 750 PATIENT: KARMA ROWLAND UNIT #: [id number]#: [id number] [address] AGE: 56 SEX: M ATTEND: [...] distentionExtremities: moves all, normal capillary refillMusculoskeletal: normal inspectionNeuro/CONTRACT RUNNER: alert, oriented X 3, 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 Considered [...] % (Auto) (14.0 - 32.0 %) 18.6 [place] % (Auto) (4.8 - 9.0 %) 6.7 Eos % (Auto) (0.3 - 3.7 %) 0.2 L Baso % (Auto) (0.0 - 2.0 %) 0.1 Neut # (Auto) (2.0 - 7.6 x10 3/uL) 6.99 Lymph # (Auto) (1.0 - 3.8 x10 3/uL) 1.77 [place] # (Auto) (0.1 - 0.8 x10 3/uL) [...] pH (5.0 - 7.0) 5.0 Ur Specific [place] (1.005 - 1.030) 1.013 Urine Protein (NEGATIVE) [...] bleeding. continue to monitor at 0538 RPT #:[id number] OF REPORTPRProgress aifv0966-96-58S55:51:00G.XNLD85763975-7930C VAvailable for patient esudMPYRLODFNHATUY4266-28-72D46:38:54 [facility] 2022-09-16 07:30:00 [id number]+3TAEtV2Y4kjLD W4z 36PcIMxYwvHWbclYO/fU8B/WDXBn7u5Oi2827-21-47 T07:30:00 [facility])Rehab Progress NoteREPORT#:[id number] REPORT STATUS: SignedDATE:09/16/22 TIME: 729 PATIENT: KARMA ROWLAND UNIT #: [id number]#: [id number] [address] AGE: 56 SEX: M ATTEND: Mj Vences [facility] AUTHOR: Mj Vences MD * ALL edits or amendments must be made on the electronic/computer document * SubjectiveChief complaint:Rehab follow-upPatient feeling well working with therapyMaking good progressStill has edema of BLE and scrotumEating 75-100% at bedside+ BMDenies CARRASCO/N/V/D/CP14 systems reviewed and neg. except that above.History [...] homans neg), BUE 5/5, LLE4/5, R hip 3-Neuro/CONTRACT RUNNER: alert, oriented X 3, CNII-XII intact ResultsFindings/Data:Laboratory [...] % (Auto) (14.0 - 32.0 %) 18.6 [place] % (Auto) (4.8 - 9.0 %) 6.7 Eos % (Auto) (0.3 - 3.7 %) 0.2 L Baso % (Auto) (0.0 - 2.0 %) 0.1 Neut # (Auto) (2.0 - 7.6 x10 3/uL) 6.99 Lymph # (Auto) (1.0 - 3.8 x10 3/uL) 1.77 [place] # (Auto) (0.1 - 0.8 x10 3/uL) [...] surgical debridement and washout4/6: S/p right BKA-Dr. Friedmanificant impairment in self-care, [...] than 5, dietaryconsultation, protein supplements to promote jlrawvq-Acpaukng-G7q 14, tight glycemia control- endocrine on board, insulin adjustments-Endocrinology, ID, podiatry, cardiology, IM consulted-Pain management adjusting pain medications-Anemia, patient required multiple units of PRBCs on acute, FOBT positive-IV Protonix-consult GI-serial H H-no evidence of gross bleeding-discussed with Dr. TrinidadQrsuatmq-Ptvnrvgalmxz-uqniqaske zrpgygvz-AKH-jzoyeb-CW Senokot and MiraLAX, DSP-Right JQN-vrfhdjq-nlkoytsp resolved, dressings changed yihry-acneqpu-swzotxun PIO-PCRX-CGRI OF NARES on Bactroban protocol-LLE edema-venous Doppler [...] of LLE-negative for DVT-Joan wrap dressing and mrxlpomlj-Evsogl-tpghfvvhep 8.3, 7.7, 8.2, transfused 2 units of [...] 3-as per renal-on Merrem and Daptomycin til 5/3 as per ID-Lasix as per nephrology-Completed Ybgk-Ifwkny-Cfygw LLE swelling (not new) and low albumin. may benefit from albumin infusion+ Miejr-LXU-srjnvfeem opacities in the right mid and lower [...] FROM BED TO . PATIENT PROPELLED WC 200' X 2 WITH [...] with interdisciplinary treatment plan. at 1503 RPT #:[id number] OF REPORTPRProgress cacp2393-21-14E54:30:00G.SOZX84548349-1720Q VAvailable for patient ecpzINGMYUBMPNUOOJ4936-46-92I40:04:06 [facility] 2022-09-16 05:43:00 [id number]+CQedhHlkKOfD1tHbjVdKWDoj [facility] UygVE4hJYPoDvX+Dia4RX74OvkraQd3q25394-51-96 T05:43:00 [facility] ([facility])Pain Management Progress NoteREPORT#:[id number] REPORT STATUS: SignedDATE:09/16/22 TIME: 05 PATIENT: KARMA ROWLAND UNIT #: [id number]#: [id number] ROOM/BED: [facility] [place]DOB: [birth year] AGE: 56 SEX: M ATTEND: Mj Vences [facility] AUTHOR: Charlie Quiroga MACHINIST APPRENTICE WOOD * ALL edits or amendments must be [...] Pulse Resp B/P B/P Mean Pulse Ox EbZ127/24-09/16 97.3-97.5 77-78 16-18 147-167/75-84 101.2-111.5 95-96 Last [...] bowel soundsExtremities: moves all, no edema, pedal pulsesNeuro/CONTRACT RUNNER: 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, no sensory deficits, CNII-XII grossly intact Considered stroke alert: noSkin: dry, normal turgor, no rash, warmPsychiatry: normal affect ResultsFindings/data:Laboratory Tests: 09/15 09/15 09/15 09/15 1937 1640 1304 1154 Chemistry POC Glucose (70 - 110 MG/DL) 124 H 137 H 126 H Urines Urine Color (YEL/STRAW) YELLOW Urine Appearance (CLEAR) SL CLOUDY Urine pH (5.0 - 7.0) 5.0 Ur Specific [place] (1.005 - 1.030) 1.013 Urine Protein (NEGATIVE) [...] to comorbid conditions-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 every 4 hours [...] whom agrees. Thank you for the consultation. 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 I personally developed thecare plan, which was continued by the mid-level provider. I was immediately available. at 0725 at 1648 RPT #:[id number] OF REPORTPRProgress uhxa5068-54-89N27:43:00G.TEFY14590528-3872G VAvailable for patient yhbmURAHTIWPLWRIVL4256-97-12S96:26:10 [facility] 2022-09-15 20:52:00 [id number]yXTP InJ 94jJpO6s7eWD5ys2eQcJAm3BuCiSNIjWC2905-25-84 T20:52:00 [facility] ([facility])Podiatry Progress NoteREPORT#:[id number] REPORT STATUS: SignedDATE:09/15/22 TIME: 2051 PATIENT: KARMA ROWLAND UNIT #: [id number]#: [id number] [address] AGE: 56 SEX: M ATTEND: [...] pH (5.0 - 7.0) 5.0 Ur Specific [place] (1.005 - 1.030) 1.013 Urine Protein (NEGATIVE) [...] Total Protein (mg/dL) 283 09/15 09/15 0519 0515 Chemistry Sodium (134 - 147 mEq/L) 132 [...] (Auto) (14.0 - 32.0 %) 11.3 L [place] % (Auto) (4.8 - 9.0 %) 3.2 L Eos % (Auto) (0.3 - 3.7 %) 0.0 L Baso % (Auto) (0.0 - 2.0 %) 0.1 Neut # (Auto) (2.0 - 7.6 x10 3/uL) 7.35 Lymph # (Auto) (1.0 - 3.8 x10 3/uL) 0.98 L [place] # (Auto) (0.1 - 0.8 x10 3/uL) [...] hospitalist, infectious disease, podiatry at 2053 RPT #:[id number] OF REPORTPRProgress frty6570-59-81B69:52:00G.EPTD04853736-3164K VAvailable for patient nrvaTISRJGDJIHNKHI6904-81-35W66:54:00 [facility] 2022-09-15 17:24:00 [id number]/QWgsclzYS0poUfkbbEvDGREiE [facility] 93v6e3dKqaygoafro/82ZxFqtZG83prG42709-00-58 T17:24:00 [facility] ([facility])Endocrinology Progress NoteREPORT#:[id number] REPORT STATUS: SignedDATE:09/15/22 TIME: 1723 PATIENT: KARMA ROWLAND UNIT #: [id number]#: [id number] ROOM/BED: [facility] [place]1DOB: [birth year] AGE: 56 SEX: [...] pH (5.0 - 7.0) 5.0 Ur Specific [place] (1.005 - 1.030) 1.013 Urine Protein (NEGATIVE) [...] (Auto) (14.0 - 32.0 %) 11.3 L [place] % (Auto) (4.8 - 9.0 %) 3.2 L Eos % (Auto) (0.3 - 3.7 %) 0.0 L Baso % (Auto) (0.0 - 2.0 %) 0.1 Neut # (Auto) (2.0 - 7.6 x10 3/uL) 7.35 Lymph # (Auto) (1.0 - 3.8 x10 3/uL) 0.98 L [place] # (Auto) (0.1 - 0.8 x10 3/uL) [...] 09/14 09/14 09/14 09/13 1130 0736 0526 0570 1937Chemistry Sodium (134 - 147 mEq/L) 132 [...] (Auto) (14.0 - 32.0 %) 13.9 L [place] % (Auto) (4.8 - 9.0 %) 5.1 Eos % (Auto) (0.3 - 3.7 %) 0.0 L Baso % (Auto) (0.0 - 2.0 %) 0.1 Neut # (Auto) (2.0 - 7.6 x10 3/uL) 7.58 Lymph # (Auto) (1.0 - 3.8 x10 3/uL) 1.31 [place] # (Auto) (0.1 - 0.8 x10 3/uL) [...] Laboratory Tests: 09/13 09/13 09/13 09/12 1105 0507 9149 2016 Chemistry Sodium (134 - 147 mEq/L) [...] (Auto) (14.0 - 32.0 %) 10.4 L [place] % (Auto) (4.8 - 9.0 %) 3.5 L Eos % (Auto) (0.3 - 3.7 %) 0.0 L Baso % (Auto) (0.0 - 2.0 %) 0.1 Neut # (Auto) (2.0 - 7.6 x10 3/uL) 8.34 H Lymph # (Auto) (1.0 - 3.8 x10 3/uL) 1.02 [place] # (Auto) (0.1 - 0.8 x10 3/uL) [...] % (Auto) (14.0 - 32.0 %) 15.0 [place] % (Auto) (4.8 - 9.0 %) 7.9 Eos % (Auto) (0.3 - 3.7 %) 3.8 H Baso % (Auto) (0.0 - 2.0 %) 0.3 Neut # (Auto) (2.0 - 7.6 x10 3/uL) 6.34 Lymph # (Auto) (1.0 - 3.8 x10 3/uL) 1.31 [place] # (Auto) (0.1 - 0.8 x10 3/uL) [...] % (Auto) (14.0 - 32.0 %) 16.1 [place] % (Auto) (4.8 - 9.0 %) 9.1 H Eos % (Auto) (0.3 - 3.7 %) 5.6 H Baso % (Auto) (0.0 - 2.0 %) 0.5 Neut # (Auto) (2.0 - 7.6 x10 3/uL) 5.35 Lymph # (Auto) (1.0 - 3.8 x10 3/uL) 1.27 [place] # (Auto) (0.1 - 0.8 x10 3/uL) [...] % (Auto) (14.0 - 32.0 %) 15.5 [place] % (Auto) (4.8 - 9.0 %) 8.5 Eos % (Auto) (0.3 - 3.7 %) 5.5 H Baso % (Auto) (0.0 - 2.0 %) 0.4 Neut # (Auto) (2.0 - 7.6 x10 3/uL) 5.94 Lymph # (Auto) (1.0 - 3.8 x10 3/uL) 1.33 [place] # (Auto) (0.1 - 0.8 x10 3/uL) [...] % (Auto) (14.0 - 32.0 %) 16.1 [place] % (Auto) (4.8 - 9.0 %) 9.2 H Eos % (Auto) (0.3 - 3.7 %) 4.7 H Baso % (Auto) (0.0 - 2.0 %) 0.4 Neut # (Auto) (2.0 - 7.6 x10 3/uL) 6.38 Lymph # (Auto) (1.0 - 3.8 x10 3/uL) 1.49 [place] # (Auto) (0.1 - 0.8 x10 3/uL) [...] Vancomycin (mcg/mL) 15.8 09/08 09/07 09/07 0615 5530 2110 Chemistry Sodium (134 - 147 mEq/L) [...] (Auto) (14.0 - 32.0 %) 13.7 L [place] % (Auto) (4.8 - 9.0 %) 7.2 Eos % (Auto) (0.3 - 3.7 %) 4.8 H Baso % (Auto) (0.0 - 2.0 %) 0.3 Neut # (Auto) (2.0 - 7.6 x10 3/uL) 6.64 Lymph # (Auto) (1.0 - 3.8 x10 3/uL) 1.24 [place] # (Auto) (0.1 - 0.8 x10 3/uL) [...] By: TipRG17 - Roger Parra M.D.ULTRASOUND [facility]/LTD 09/05 1146 Report Impression [...] 12.8 09/04 09/04 09/03 09/03 0721 0540 9800 2866 Chemistry POC Glucose (70 - 110 MG/DL) [...] insulin dose.PT and OT. at 1724 RPT #:[id number] OF REPORTPRProgress xuww4795-57-07S82:24:00G.PHNG26780800-5235C VAvailable for patient whnrAXMIVIGXIFRHDR0979-89-98L83:25:25 [facility] 2022-09-15 16:24:00 [id number]/sbR06RV+zHmKeIJ1qm i+U gcp2FPymyFr9NSow/XYsCXIfdSLfoIelq7166-77-00 T16:24:00 [facility] Progress NoteREPORT#:[id number] REPORT STATUS: SignedDATE:09/15/22 TIME: 1624 PATIENT: KARMA ROWLAND UNIT #: [id number]#: [id number] [address] AGE: 56 SEX: M ATTEND: [...] hospitalist, infectious disease, podiatry at 1625 RPT #:[id number] OF REPORTPRProgress yctr5493-27-41B31:24:00G.JSUA96149010-4350A VAvailable for patient ojjfCXFBPBUGRXSMCA4034-63-89X49:26:05 [facility] 2022-09-15 11:52:00 [id number]/DL314VAOfOT 7MU U+l7kMSeCNt+dRGeFaMNeC/r9xAf4kwgr2421-23-08 T11:52:00 [facility] HospitalIn[facility] Dis. Progress NoteREPORT#:[id number] REPORT STATUS: SignedDATE:09/15/22 TIME: 1152 PATIENT: KARMA ROWLAND UNIT #: [id number]#: [id number] [address] AGE: 56 SEX: M ATTEND: Mj Vences [facility] AUTHOR: Linda Anderson MD * ALL edits [...] chills09/12 doing well, working with PT in Readiness Resource GroupPatient reports:No: cough, diarrhea, fever, headache, nausea, shortness [...] right BKA Left foot wound +dressing in placeNeuro/CONTRACT RUNNER: alert, oriented X 3 Considered stroke alert: [...] (Auto) (14.0 - 32.0 %) 11.3 L [place] % (Auto) (4.8 - 9.0 %) 3.2 L Eos % (Auto) (0.3 - 3.7 %) 0.0 L Baso % (Auto) (0.0 - 2.0 %) 0.1 Neut # (Auto) (2.0 - 7.6 x10 3/uL) 7.35 Lymph # (Auto) (1.0 - 3.8 x10 3/uL) 0.98 L [place] # (Auto) (0.1 - 0.8 x10 3/uL) [...] (Auto) (14.0 - 32.0 %) 11.3 L [place] % (Auto) (4.8 - 9.0 %) 3.2 L Eos % (Auto) (0.3 - 3.7 %) 0.0 L Baso % (Auto) (0.0 - 2.0 %) 0.1 Neut # (Auto) (2.0 - 7.6 x10 3/uL) 7.35 Lymph # (Auto) (1.0 - 3.8 x10 3/uL) 0.98 L [place] # (Auto) (0.1 - 0.8 x10 3/uL) [...] (Auto) (14.0 - 32.0 %) 13.9 L [place] % (Auto) (4.8 - 9.0 %) 5.1 Eos % (Auto) (0.3 - 3.7 %) 0.0 L Baso % (Auto) (0.0 - 2.0 %) 0.1 Neut # (Auto) (2.0 - 7.6 x10 3/uL) 7.58 Lymph # (Auto) (1.0 - 3.8 x10 3/uL) 1.31 [place] # (Auto) (0.1 - 0.8 x10 3/uL) [...] - 0.1 x10 3/uL) 0.00 09/13 09/13 1937 1629 Chemistry POC Glucose [...] BEDTIME 09/04 2100 AC 09/14 PO 10/04 205 2119 Acetaminophen 650 MG Q6H PRN PRN [...] Sodium 40 MG Q12HR 09/05 0900 AC 09/15 IV 10/05 0859 0911 Polyethylene Glycol 17 GM DAILY 09/05 0900 AC 09/15 PO 10/05 0859 0912 Sennosides [...] BEDTIME 09/14 2100 AC 09/14 SUBQ 10/14 Insulin Human Lispro 7 UNIT AC 09/14 0730 AC 09/15 SUBQ 10/14 0729 0913 Insulin Glargine 10 UNIT BEDTIME 09/13 2100 DC 09/13 SUBQ 10/13 Methylprednisolone 125 MG DAILY 1400 09/12 1400 DC 09/14 Sodium Succinate IV 09/14 1401 1609 Insulin Human Lispro 0 AC HS 09/03 1630 AC 09/15 SUBQ 10/03 1629 0912 Glucagon 1 MG ASDIR PRN 09/03 1515 AC IM 10/03 1514 Local Anesthetics (Parenteral) Sig/Jan Start time Last Medication Dose Route Stop Time Status Admin Lidocaine 1 PATCH DAILY 09/03 09 AC 09/15 TOPICAL 10/03 0859 0912 Skin And Mucous Membrane Agent Sig/Jan Start time Last Medication Dose Route Stop Time Status Admin Zinc Oxide 1 APPLIC DAILY 09/04 09 AC 09/15 TOPICAL 10/04 0859 0911 Vitamins Sig/Jan Start time Last Medication Dose Route Stop Time Status Admin Folic Acid 2 MG DAILY 09/09 09 AC 09/15 PO 10/09 0859 0909 Multivitamins [...] Daptomycin til 5/3creat still elevated: nephrology following Consultants: cardiology, endocrinology, hospitalist, infectious disease, podiatry Portions of this section were scribed by Jill Quintero on 09/15/22 at 1152 at 2335 RPT #:[id number] OF REPORTPRProgress qckn3602-86-97V27:52:00G.RIQC64353721-1553Y VAvailable for patient asxjTRFXHFJIKDTNHX6544-61-84H91:35:52 [facility] 2022-09-15 11:03:00 [id number]klCv uri 4JuLEz/rxPo/wBYZtjM7wQXFlF37dvEpV0789-87-42 T11:03:00 [facility]Hospital[facility] Progress NoteREPORT#:[id number] REPORT STATUS: SignedDATE:09/15/22 TIME: 1103 PATIENT: KARMA ROWLAND UNIT #: [id number]#: [id number] ROOM/BED: [facility] [place]DOB: [birth year] AGE: 56 SEX: [...] distentionExtremities: moves all, normal capillary refillMusculoskeletal: normal inspectionNeuro/CONTRACT RUNNER: alert, oriented X 3, 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 Considered [...] (Auto) (14.0 - 32.0 %) 11.3 L [place] % (Auto) (4.8 - 9.0 %) 3.2 L Eos % (Auto) (0.3 - 3.7 %) 0.0 L Baso % (Auto) (0.0 - 2.0 %) 0.1 Neut # (Auto) (2.0 - 7.6 x10 3/uL) 7.35 Lymph # (Auto) (1.0 - 3.8 x10 3/uL) 0.98 L [place] # (Auto) (0.1 - 0.8 x10 3/uL) [...] appreciate Nephrology inputpain control at 1105 RPT #:[id number] OF REPORTPRProgress kfow9778-13-61L61:03:00G.[id number] VAvailable for patient oscyESHIPIWSAVDEFI5682-06-67I39:06:48 [facility] 2022-09-15 09:43:00 [id number]+ftr5wB /qU r6Nbc3gWoGFOcnAmn4IpZF1/BB9LXw2a41596-38-56 T09:43:00 [facility] ([facility])Rehab Progress NoteREPORT#:[id number] REPORT STATUS: SignedDATE:09/15/22 TIME: 09 PATIENT: KARMA ROWLAND UNIT #: [id number]#: [id number] [address] [birth year] AGE: 56 SEX: M ATTEND: Mj Vences MDADM AUTHOR: Mj Vences MD * ALL edits or amendments must be made on the electronic/computer document * SubjectiveChief complaint:Rehab follow-upDoing well, up in wheelchair working with therapyReports thigh and pelvic area edemaEating 75-100% at bedside+ BMDenies CARRASCO/N/V/D/CP14 systems reviewed and neg. except that above.History [...] homans neg), BUE 5/5, LLE4/5, R hip 3-Neuro/CONTRACT RUNNER: alert, oriented X 3, CNII-XII intact ResultsFindings/Data:Laboratory [...] (Auto) (14.0 - 32.0 %) 11.3 L [place] % (Auto) (4.8 - 9.0 %) 3.2 L Eos % (Auto) (0.3 - 3.7 %) 0.0 L Baso % (Auto) (0.0 - 2.0 %) 0.1 Neut # (Auto) (2.0 - 7.6 x10 3/uL) 7.35 Lymph # (Auto) (1.0 - 3.8 x10 3/uL) 0.98 L [place] # (Auto) (0.1 - 0.8 x10 3/uL) [...] # (Man) (0.0 - 0.1 0.00x10 3/uL) Microbiology:09/15 0515 NASAL: MRSA DNA Surveillance Screen - RECD Radiology data:Recent Impressions:ULTRASOUND - US RETROPERITONEAL COM 09/10 1311 Report Impression - Status: SIGNED Entered: 09/10/2022 1503 IMPRESSION: No acute findings. Impression By: RajO Cr Mares M.D.RADIOLOGY - XR CHEST 1 V [...] than 5, dietaryconsultation, protein supplements to promote nmnnqrq-Kwrwszpy-O0y 14, tight glycemia control- endocrine on board, insulin adjustments-Endocrinology, ID, podiatry, cardiology, IM consulted-Pain management adjusting pain medications-Anemia, patient required multiple units of PRBCs on acute, FOBT positive-IV Protonix-consult GI-serial H H-no evidence of gross bleeding-discussed with Dr. TrinidadZjpxlnem-Egqnlyfzeucv-rmufkbymy okdrwmpy-XBQ-aiizth-CW Senokot and MiraLAX, DSP-Right VVI-tngltkn-ykdsrjty resolved, dressings changed tvddr-ylkoksj-mzyqayyf FVP-RSKN-FAGE OF NARES on Bactroban protocol-LLE edema-venous Doppler [...] of LLE-negative for DVT-Joan wrap dressing and owfviqdvf-Ozstws-rmeonhtjcv 8.3, 7.7, 8.2, transfused 2 units of [...] biopsy-as per renal-on Merrem and Daptomycin til 09/24 as per ID-Lasix discontinued.-On Upcf-Kfbvhj-Gqnul LLE swelling (not new) and low albumin. may benefit from albumin infusion+ Klrep-DKK-fnybbolxk opacities in the right mid and lower [...] FROM BED TO . PATIENT PROPELLED WC 200' X 2 WITH [...] with interdisciplinary treatment plan. at 1336 RPT #:[id number] OF REPORTPRProgress tftz7023-76-31O55:43:00G.[id number] VAvailable for patient zqbkPOTTZGGFNZRBKI0939-46-35M93:36:59 [facility] 2022-09-15 09:41:00 [id number]x Ut0 fchIGLIm3n+L6tB+h3hIC9Fneg9YtZlnI6470-17-51 T09:41:00 [facility] ([facility])Cardiology Progress NoteREPORT#:[id number] REPORT STATUS: SignedDATE:09/15/22 TIME: 940 PATIENT: KARMA ROWLAND UNIT #: [id number]#: [id number] [address] AGE: 56 SEX: M ATTEND: Mj Vences [facility] AUTHOR: Rohit Benitez [employer] * ALL edits or amendments must be [...] O2 Flow FiO2 Mean Ox Delivery Rate 09/141 97.5 81 18 139/73 95.2 94 Nasal [...] soft, non-tenderLower extremity: LE assessment: edema, normal temperatureNeuro/CONTRACT RUNNER: alert, oriented X 3 Considered stroke alert: [...] (Auto) (14.0 - 32.0 %) 11.3 L [place] % (Auto) (4.8 - 9.0 %) 3.2 L Eos % (Auto) (0.3 - 3.7 %) 0.0 L Baso % (Auto) (0.0 - 2.0 %) 0.1 Neut # (Auto) (2.0 - 7.6 x10 3/uL) 7.35 Lymph # (Auto) (1.0 - 3.8 x10 3/uL) 0.98 L [place] # (Auto) (0.1 - 0.8 x10 3/uL) [...] Will follow. at 1654 at 0902 RPT #:[id number] OF REPORTPRProgress uogg6007-33-84Q78:41:00G.[id number] VAvailable for patient fcbmXZEXJPGKEDAJPR4762-66-43B20:55:00 [facility] 2022-09-15 07:33:00 [id number]/FFZ3C86nKeCHbrNgJpq8V3oULz +Bq 53y1Ml4gyoS3HD3uCWHM3CTaGTyNsx7Oo9052-59-32 T07:33:00 [facility] NoteREPORT#:[id number] REPORT STATUS: SignedDATE:09/15/22 TIME: 07 PATIENT: KARMA ROWLAND UNIT #: [id number]#: [id number] [address]: [address] StreetOB: [birth year] AGE: 56 SEX: M ATTEND: Mj Vences [facility] AUTHOR: Barrera Ramírez MD * ALL edits [...] non-tender, no edemaMusculoskeletal: no CVA tenderness, no tendernessNeuro/CONTRACT RUNNER: alert, 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 Considered stroke alert: noSkin: dry, intact ResultsFindings/Data:Laboratory Tests 09/15 09/14 09/14 09/14 09/14 0519 1931 1543 1130 0736 Chemistry POC Glucose (70 - 110 MG/DL) 309 H 193 H 60 L 137 H 290 H 09/14 09/14 09/13 09/13 09/13 0526 0525 1937 1629 1105 Chemistry Sodium (134 - 147 [...] 09/13 09/13 09/12 09/12 09/12 0543 0455 20166 1115 Chemistry Sodium (134 - 147 mEq/L) [...] L Laboratory Tests 09/14 09/13 09/12 0525 0453 1115 Hematology WBC (4.5 - 11.0 x10 [...] - 32.0 %) 13.9 L 10.4 L [place] % (Auto) (4.8 - 9.0 %) 5.1 3.5 L Eos % (Auto) (0.3 - 3.7 %) 0.0 L 0.0 L Baso % (Auto) (0.0 - 2.0 %) 0.1 0.1 Neut # (Auto) (2.0 - 7.6 x10 3/uL) 7.58 8.34 H Lymph # (Auto) (1.0 - 3.8 x10 3/uL) 1.31 1.02 [place] # (Auto) (0.1 - 0.8 x10 3/uL) [...] 09/14 09/14 09/14 0519 1931 1543 1130 0766 Chemistry POC Glucose (70 - 110 MG/DL) [...] endocrinology, hospitalist, infectious disease, podiatry at 1021 RPT #:[id number] OF REPORTPRProgress ndvx1992-47-20K12:33:00G.[id number] VAvailable for patient sgztEUYUNNWRQLBKTT3112-05-78J00:22:12 [facility] 2022-09-15 06:25:00 [id number]QGE2 l8h aZc8ju6uor5uQojDsEUaz4w6FthMYw17p6387-67-36 T06:25:00 [facility] ([facility])Pain Management Progress NoteREPORT#:[id number] REPORT STATUS: SignedDATE:09/15/22 TIME: 624 PATIENT: KARMA ROWLAND UNIT #: [id number]#: [id number] [address] [birth year] AGE: 56 SEX: M ATTEND: Mj Vences MDADM AUTHOR: Charlie Quiroga MACHINIST APPRENTICE WOOD * ALL edits or amendments must be made on the electronic/computer document * Charlie Quiroga 09/15/22 0625:SubjectiveChief complaint:Patient seen and examined. Chart/MAR reviewed. 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 every 4 hours [...] whom agrees. Thank you for the consultation. 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:-database searched, no information found Kingsley Ng 10/04/22 1356:Attestations Physician AttestationAgree w/findings plan:The patient was seen and examined by Charlie Quiroga. I personally developed thecare plan, which was continued by the mid-level provider. I was immediately available. at 0708 at 1400 RPT #:[id number] OF REPORTPRProgress orfq7566-39-24C12:25:00G.MFCI31153363-7905O VAvailable for patient foyrNLNKMMKIJSGFUO2909-94-07C12:08:30 [facility] 2022-09-14 17:43:00 [id number]4r9m Kay xup4t/RJ6GKKPy4xSFOk1EMUqxXFFX0IF3323-02-36 T17:43:00 [facility] ([facility])Gastroenterology Progress NoteREPORT#:[id number] REPORT STATUS: SignedDATE:09/14/22 TIME: 1743 PATIENT: KARMA ROWLAND UNIT #: [id number]#: [id number] ROOM/BED: [facility] [place]DOB: [birth year] AGE: 57 SEX: M ATTEND: Mj Vences [facility] AUTHOR: Tiara Tillman MACHINIST APPRENTICE WOOD * ALL edits or amendments must be [...] the plan and management as noted. at 3220 at 1409 RPT #:[id number] OF REPORTPRProgress ygbp7353-49-70S11:43:00G.HFCD52163517-3112E VAvailable for patient aryoDKCTNBLHZUBBRC1924-52-44M34:45:25 [facility] 2022-09-14 15:56:00 [id number]/3qdEE W+K UAeJXJV+eWvTIcff9QBJG4BD/zQAKzOkN1619-79-29 T15:56:00 [facility])Endocrinology Progress NoteREPORT#:[id number] REPORT STATUS: SignedDATE:09/14/22 TIME: 1556 PATIENT: KARMA ROWLAND UNIT #: [id number]#: [id number] [address] [birth year] AGE: 56 SEX: M ATTEND: Mj Vences AUTHOR: Braxton Chapin MD * ALL edits [...] (Auto) (14.0 - 32.0 %) 13.9 L [place] % (Auto) (4.8 - 9.0 %) 5.1 Eos % (Auto) (0.3 - 3.7 %) 0.0 L Baso % (Auto) (0.0 - 2.0 %) 0.1 Neut # (Auto) (2.0 - 7.6 x10 3/uL) 7.58 Lymph # (Auto) (1.0 - 3.8 x10 3/uL) 1.31 [place] # (Auto) (0.1 - 0.8 x10 3/uL) [...] Laboratory Tests: 09/13 09/13 09/13 09/12 1105 2185 2264 2016 Chemistry Sodium (134 - 147 mEq/L) [...] (Auto) (14.0 - 32.0 %) 10.4 L [place] % (Auto) (4.8 - 9.0 %) 3.5 L Eos % (Auto) (0.3 - 3.7 %) 0.0 L Baso % (Auto) (0.0 - 2.0 %) 0.1 Neut # (Auto) (2.0 - 7.6 x10 3/uL) 8.34 H Lymph # (Auto) (1.0 - 3.8 x10 3/uL) 1.02 [place] # (Auto) (0.1 - 0.8 x10 3/uL) [...] Microbiology: Date/Time Procedure - Status Source Growth 04/22 0455 MRSA DNA Surveillance Screen - RECD [...] % (Auto) (14.0 - 32.0 %) 15.0 [place] % (Auto) (4.8 - 9.0 %) 7.9 Eos % (Auto) (0.3 - 3.7 %) 3.8 H Baso % (Auto) (0.0 - 2.0 %) 0.3 Neut # (Auto) (2.0 - 7.6 x10 3/uL) 6.34 Lymph # (Auto) (1.0 - 3.8 x10 3/uL) 1.31 [place] # (Auto) (0.1 - 0.8 x10 3/uL) [...] % (Auto) (14.0 - 32.0 %) 16.1 [place] % (Auto) (4.8 - 9.0 %) 9.1 H Eos % (Auto) (0.3 - 3.7 %) 5.6 H Baso % (Auto) (0.0 - 2.0 %) 0.5 Neut # (Auto) (2.0 - 7.6 x10 3/uL) 5.35 Lymph # (Auto) (1.0 - 3.8 x10 3/uL) 1.27 [place] # (Auto) (0.1 - 0.8 x10 3/uL) [...] % (Auto) (14.0 - 32.0 %) 15.5 [place] % (Auto) (4.8 - 9.0 %) 8.5 Eos % (Auto) (0.3 - 3.7 %) 5.5 H Baso % (Auto) (0.0 - 2.0 %) 0.4 Neut # (Auto) (2.0 - 7.6 x10 3/uL) 5.94 Lymph # (Auto) (1.0 - 3.8 x10 3/uL) 1.33 [place] # (Auto) (0.1 - 0.8 x10 3/uL) [...] % (Auto) (14.0 - 32.0 %) 16.1 [place] % (Auto) (4.8 - 9.0 %) 9.2 H Eos % (Auto) (0.3 - 3.7 %) 4.7 H Baso % (Auto) (0.0 - 2.0 %) 0.4 Neut # (Auto) (2.0 - 7.6 x10 3/uL) 6.38 Lymph # (Auto) (1.0 - 3.8 x10 3/uL) 1.49 [place] # (Auto) (0.1 - 0.8 x10 3/uL) [...] (Auto) (14.0 - 32.0 %) 13.7 L [place] % (Auto) (4.8 - 9.0 %) 7.2 Eos % (Auto) (0.3 - 3.7 %) 4.8 H Baso % (Auto) (0.0 - 2.0 %) 0.3 Neut # (Auto) (2.0 - 7.6 x10 3/uL) 6.64 Lymph # (Auto) (1.0 - 3.8 x10 3/uL) 1.24 [place] # (Auto) (0.1 - 0.8 x10 3/uL) [...] insulin dose.PT and OT. at 1557 RPT #:[id number] OF REPORTPRProgress wcot3042-17-44G03:56:00G.[id number] VAvailable for patient xjkbNHJHDMLKFIHBOW9217-49-77Q30:57:44 [facility] 2022-09-14 15:33:00 [id number]+NEF5sASarr ChI 5IrjL9A7jH0a/IoGmuA0HjmO5UeJJQoGW2880-54-26 T15:33:00 [facility] Progress NoteREPORT#:[id number] REPORT STATUS: SignedDATE:09/14/22 TIME: 1533 PATIENT: KARMA ROWLAND UNIT #: [id number]#: [id number] [address] [birth year] AGE: 56 SEX: M ATTEND: [...] capillary refillMusculoskeletal: normal inspection, painless range of motionNeuro/CONTRACT RUNNER: alert, oriented X 3, 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 Considered stroke alert: noSkin: dry, intactPsychiatry: normal affect, normal judgment/insight ResultsFindings/Data:Laboratory Tests 09/14 09/14 09/14 09/14 09/13 1130 0736 0507 0517 1931 Chemistry Sodium (134 - 147 mEq/L) [...] (Auto) (14.0 - 32.0 %) 13.9 L [place] % (Auto) (4.8 - 9.0 %) 5.1 Eos % (Auto) (0.3 - 3.7 %) 0.0 L Baso % (Auto) (0.0 - 2.0 %) 0.1 Neut # (Auto) (2.0 - 7.6 x10 3/uL) 7.58 Lymph # (Auto) (1.0 - 3.8 x10 3/uL) 1.31 [place] # (Auto) (0.1 - 0.8 x10 3/uL) [...] BMP in ampain control at 1536 RPT #:[id number] OF REPORTPRProgress baln3033-42-06P59:33:00G.VYUD99091348-8339P VAvailable for patient gqfmDSPBZHNRMHAXZM8715-99-14V57:37:13 [facility] 2022-09-14 11:38:00 [id number]+yWsRPGDILeBz3c2m0i FF8 FXjDgOYSzxiIR758ISL7lAe7BEsNprmIW3486-17-70 T11:38:00 [facility] ([facility])Nephrology Progress NoteREPORT#:[id number] REPORT STATUS: SignedDATE:09/14/22 TIME: 1138 PATIENT: KARMA ROWLAND UNIT #: [id number]#: [id number] [address] [birth year] AGE: 56 SEX: M ATTEND: [facility]j [facility]ences [facility] AUTHOR: Elodia Neri MD * ALL edits [...] non-tender, no edemaMusculoskeletal: no CVA tenderness, no tendernessNeuro/CONTRACT RUNNER: alert, 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 Considered stroke alert: noSkin: [...] hospitalist, infectious disease, podiatry at 1140 RPT #:[id number] OF REPORTPRProgress opge9318-03-60R02:38:00G.MVBI60812738-4511Z VAvailable for patient uedzNURWOEJITZUEAF8368-64-42Q62:41:02 [facility] 2022-09-14 10:34:00 [id number]+pAWc8EmTSjxakjpfku8Y8GexrPY Lyy KD/XdlUglrzu1oiy9GqfnruBSykTjAuS57939-82-78 T10:34:00 [facility])Podiatry Progress NoteREPORT#:[id number] REPORT STATUS: SignedDATE:09/14/22 TIME: 1034 PATIENT: KARMA ROWLAND UNIT #: [id number]#: [id number] [address] [birth year] AGE: 56 SEX: M ATTEND: Mj Vences [facility] AUTHOR: Liam Pedersen DPM * ALL edits or amendments must be made on the electronic/computer document * SubjectiveChief complaint:left heel ulcer. left ankle painPatient reports: no confusion, no cough, no dizziness, no fever, no heartburn, no nausea Objective GeneralVS:Last Documented: Result Date Time Pulse Ox 95 09/14 0734 B/P 150/76 09/14 733 B/P Mean 101.0 [...] Tests: 09/14 09/14 09/14 09/13 0736 0526 0581 1937Chemistry Sodium (134 - 147 mEq/L) 132 [...] (Auto) (14.0 - 32.0 %) 13.9 L [place] % (Auto) (4.8 - 9.0 %) 5.1 Eos % (Auto) (0.3 - 3.7 %) 0.0 L Baso % (Auto) (0.0 - 2.0 %) 0.1 Neut # (Auto) (2.0 - 7.6 x10 3/uL) 7.58 Lymph # (Auto) (1.0 - 3.8 x10 3/uL) 1.31 [place] # (Auto) (0.1 - 0.8 x10 3/uL) [...] hospitalist, infectious disease, podiatry at 1035 RPT #:[id number] OF REPORTPRProgress smok5880-00-20A49:34:00G.IRBK12169155-0367S VAvailable for patient veliNGOJWVGMTASEKI6317-01-17E46:36:03 [facility] 2022-09-14 07:15:00 [id number]ayYV IqD q1LhjUQvDpCzanHl7afD3r8wz6XfZ45mk6455-95-07 T07:15:00 [facility] ([facility])Rehab Progress NoteREPORT#:[id number] REPORT STATUS: SignedDATE:09/14/22 TIME: 07 PATIENT: KARMA ROWLAND UNIT #: [id number]#: [id number] ROOM/BED: [facility] [place]DOB: [birth year] AGE: 56 SEX: M ATTEND: Mj Vences MDADM AUTHOR: Guero Candelaria * ALL edits or amendments must be made on the electronic/computer document * SubjectiveChief complaint:Rehab follow-upDoing wellReports thigh and pelvic area edemaEating 75-100% at bedside+ BMDenies CARRASCO/N/V/D/CP14 systems reviewed and neg. except that above.History [...] homans neg), BUE 5/5, LLE4/5, R hip 3-Neuro/CONTRACT RUNNER: alert, oriented X 3, CNII-XII intact ResultsFindings/Data:Laboratory Tests 09/14 09/13 09/13 09/13 09/13 0526 7 1629 1105 0543 Chemistry POC Glucose (70 - 110 MG/DL) 334 H 248 H 130 H 307 H 258 H 09/13 160 1115 1105 Chemistry Sodium (134 - 147 [...] 09/12 09/12 09/11 09/11 09/11 0604 0420 3 1532 1114 Chemistry Sodium (134 - 147 [...] (14.0 - 32.0 %) 10.4 L 15.0 [place] % (Auto) (4.8 - 9.0 %) 3.5 L 7.9 Eos % (Auto) (0.3 - 3.7 %) 0.0 L 3.8 H Baso % (Auto) (0.0 - 2.0 %) 0.1 0.3 Neut # (Auto) (2.0 - 7.6 x10 3/uL) 8.34 H 6.34 Lymph # (Auto) (1.0 - 3.8 x10 3/uL) 1.02 1.31 [place] # (Auto) (0.1 - 0.8 x10 3/uL) [...] than 5, dietaryconsultation, protein supplements to promote skummnx-Hxjzaxui-N1a 14, tight glycemia control- endocrine on board, insulin adjustments-Endocrinology, ID, podiatry, cardiology, IM consulted-Pain management adjusting pain medications-Anemia, patient required multiple units of PRBCs on acute, FOBT positive-IV Protonix-consult GI-serial H H-no evidence of gross bleeding-discussed with Dr. TrinidadVtsltytc-Lqnkrkfawnfz-onkwjvnsl zxqlfste-DFP-ylfwvn-CW Senokot and MiraLAX, DSP-Right TBB-dzkqbpe-cdfljjbt resolved, dressings changed kdlvq-oulealb-xepqqzhz LPE-VDPJ-ERWI OF NARES on Bactroban protocol-LLE edema-venous Doppler [...] of LLE-negative for DVT-Joan wrap dressing and qwsdqruug-Ymceex-sjpgawkscw 8.3, 7.7, transfused 2 units of PRBC [...] with interdisciplinary treatment plan. at 2016 RPT #:[id number] OF REPORTPRProgress nneu8728-47-53I45:15:00G.MGZB50929078-8503T VAvailable for patient exawCSCMORKVUOHDSF7091-05-50J82:17:00 [facility] 2022-09-14 06:12:00 [id number]tRhl kK/ tl13iu9ruzFBGijVbGVNCeWejeLZrJHU75893-66-70 T06:12:00 [facility] ([facility])Pain Management Progress NoteREPORT#:[id number] REPORT STATUS: SignedDATE:09/14/22 TIME: 611 PATIENT: KARMA ROWLAND UNIT #: [id number]#: [id number] [address] [birth year] AGE: 56 SEX: M ATTEND: Mj Vences AUTHOR: Charlie Quiroga MACHINIST APPRENTICE WOOD * ALL edits or amendments must be [...] Pulse Resp B/P B/P Mean Pulse Ox QtU484/-09/14 97.3-98.4 78-88 16-18 131-162/77-84 95.0-109.8 90-97 Last Documented: Result Date Time Pulse Ox 96 09/14 0038 B/P 161/84 09/14 0038 B/P Mean 109.8 09/14 0038 Temp 98.1 09/14 0038 Pulse 83 09/14 [...] bowel soundsExtremities: moves all, no edema, pedal pulsesNeuro/CONTRACT RUNNER: 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, no sensory deficits, CNII-XII [...] to comorbid conditions-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 every 4 hours [...] whom agrees. Thank you for the consultation. 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:-database searched, no information found Kingsley Ng 10/04/22 1309:Attestations Physician AttestationAgree w/findings plan:The patient was seen and examined by Charlie Quiroga. I personally developed thecare plan, which was continued by the mid-level provider. I was immediately available. at 0741 at 1318 RPT #:[id number] OF REPORTPRProgress cfsw6542-72-31L49:12:00G.FHQL47584220-4290K VAvailable for patient hvzfQKTZSUYLMDYPBB5985-73-56E68:41:22 [facility] 2022-09-13 16:50:00 [id number]/GCCqUm8e89Y00AKPs6dTXF+0srY 39j CXdtfVNeWcOq6SFjGGBQ+KMVQGYXdL+nJ1396-95-02 T16:50:00 [facility])Endocrinology Progress NoteREPORT#:[id number] REPORT STATUS: SignedDATE:09/13/22 TIME: 1650 PATIENT: KARMA ROWLAND UNIT #: [id number]#: [id number] [address] [birth year] AGE: 56 SEX: M ATTEND: [...] date:Laboratory Tests: 09/13 09/13 09/13 09/12 1105 0519 7377 2016 Chemistry Sodium (134 - 147 mEq/L) [...] (Auto) (14.0 - 32.0 %) 10.4 L [place] % (Auto) (4.8 - 9.0 %) 3.5 L Eos % (Auto) (0.3 - 3.7 %) 0.0 L Baso % (Auto) (0.0 - 2.0 %) 0.1 Neut # (Auto) (2.0 - 7.6 x10 3/uL) 8.34 H Lymph # (Auto) (1.0 - 3.8 x10 3/uL) 1.02 [place] # (Auto) (0.1 - 0.8 x10 3/uL) [...] % (Auto) (14.0 - 32.0 %) 15.0 [place] % (Auto) (4.8 - 9.0 %) 7.9 Eos % (Auto) (0.3 - 3.7 %) 3.8 H Baso % (Auto) (0.0 - 2.0 %) 0.3 Neut # (Auto) (2.0 - 7.6 x10 3/uL) 6.34 Lymph # (Auto) (1.0 - 3.8 x10 3/uL) 1.31 [place] # (Auto) (0.1 - 0.8 x10 3/uL) [...] % (Auto) (14.0 - 32.0 %) 16.1 [place] % (Auto) (4.8 - 9.0 %) 9.1 H Eos % (Auto) (0.3 - 3.7 %) 5.6 H Baso % (Auto) (0.0 - 2.0 %) 0.5 Neut # (Auto) (2.0 - 7.6 x10 3/uL) 5.35 Lymph # (Auto) (1.0 - 3.8 x10 3/uL) 1.27 [place] # (Auto) (0.1 - 0.8 x10 3/uL) [...] % (Auto) (14.0 - 32.0 %) 15.5 [place] % (Auto) (4.8 - 9.0 %) 8.5 Eos % (Auto) (0.3 - 3.7 %) 5.5 H Baso % (Auto) (0.0 - 2.0 %) 0.4 Neut # (Auto) (2.0 - 7.6 x10 3/uL) 5.94 Lymph # (Auto) (1.0 - 3.8 x10 3/uL) 1.33 [place] # (Auto) (0.1 - 0.8 x10 3/uL) [...] % (Auto) (14.0 - 32.0 %) 16.1 [place] % (Auto) (4.8 - 9.0 %) 9.2 H Eos % (Auto) (0.3 - 3.7 %) 4.7 H Baso % (Auto) (0.0 - 2.0 %) 0.4 Neut # (Auto) (2.0 - 7.6 x10 3/uL) 6.38 Lymph # (Auto) (1.0 - 3.8 x10 3/uL) 1.49 [place] # (Auto) (0.1 - 0.8 x10 3/uL) [...] (0.3 - 2.3 %) 1.3 Laboratory Tests: 0409/08 1611 1318 1045 1033 0616 Chemistry POC [...] (Auto) (14.0 - 32.0 %) 13.7 L [place] % (Auto) (4.8 - 9.0 %) 7.2 Eos % (Auto) (0.3 - 3.7 %) 4.8 H Baso % (Auto) (0.0 - 2.0 %) 0.3 Neut # (Auto) (2.0 - 7.6 x10 3/uL) 6.64 Lymph # (Auto) (1.0 - 3.8 x10 3/uL) 1.24 [place] # (Auto) (0.1 - 0.8 x10 3/uL) [...] By: TipRG17 - Roger Parra M.D.ULTRASOUND [facility] 09/05 1146 Report Impression [...] insulin dose.PT and OT. at 1651 RPT #:[id number] OF REPORTPRProgress wcnz5591-05-26L77:50:00G.VNMR29178596-0593N VAvailable for patient fappGFSLHNETSHVMCR5596-79-29K67:51:40 [facility] 2022-09-13 16:00:00 [id number]/0ydFU36Vku00Bmu Zqb 420G+EMKJ5gmfsV7ggMTniaZFJxvPApKK3881-97-29 T16:00:00 [facility] ([facility])Podiatry Progress NoteREPORT#:[id number] REPORT STATUS: SignedDATE:09/13/22 TIME: 1600 PATIENT: KARMA ROWLAND UNIT #: [id number]#: [id number] ROOM/BED: [facility] [place]DOB: [birth year] AGE: 56 SEX: [...] hospitalist, infectious disease, podiatry at 1601 RPT #:[id number] OF REPORTPRProgress hfhp0640-17-56B85:00:00G.YVRN66357661-9395X VAvailable for patient liokQJEKQOYIPDGSVZ4812-73-10I91:01:39 [facility] 2022-09-13 15:53:00 [id number]b2gb WQm /O/Izx3+hMnPb69eWysEEs1D3h/vooPAr3363-65-42 T15:53:00 [facility] NoteRE[facility]#:[id number] REPORT STATUS: SignedDATE:09/13/22 TIME: 1553 PATIENT: KARMA ROWLAND UNIT #: [id number]#: [id number] ROOM/BED: [facility] [place]1DOB: [birth year] AGE: 56 SEX: M ATTEND: Mj Vences AUTHOR: Elodia Neri MD * ALL edits [...] non-tender, no edemaMusculoskeletal: no CVA tenderness, no tendernessNeuro/CONTRACT RUNNER: alert, 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 Considered stroke alert: noSkin: [...] endocrinology, hospitalist, infectious disease, podiatry at 1556 RPT #:[id number] OF REPORTPRProgress brgc7175-86-32O15:53:00G.RXGZ56233126-3563K VAvailable for patient vqaeZGBFFPGWIJTKQA5921-84-95Q17:57:08 [facility] 2022-09-13 15:16:00 [id number]+RFjHRdmz2HU WAE Lq00WrVB8BN9xLFDTgmiKZ0bxWvVyN25l6586-40-93 T15:16:00 [facility] Progress NoteREPORT#:[id number] REPORT STATUS: SignedDATE:09/13/22 TIME: 1516 PATIENT: KARMA ROWLAND UNIT #: [id number]#: [id number] [address] [birth year] AGE: 56 SEX: M ATTEND: Mj Vences [facility] AUTHOR: Meera Chavira DO * ALL edits [...] capillary refillMusculoskeletal: normal inspection, painless range of motionNeuro/CONTRACT RUNNER: alert, oriented X 3, 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 Considered stroke alert: noSkin: dry, intactPsychiatry: normal affect, normal judgment/insight ResultsFindings/Data:Laboratory Tests 09/13 09/13 09/13 09/12 09/12 1105 5805 5246 2016 1606 Chemistry Sodium (134 - 147 mEq/L) [...] (Auto) (14.0 - 32.0 %) 10.4 L [place] % (Auto) (4.8 - 9.0 %) 3.5 L Eos % (Auto) (0.3 - 3.7 %) 0.0 L Baso % (Auto) (0.0 - 2.0 %) 0.1 Neut # (Auto) (2.0 - 7.6 x10 3/uL) 8.34 H Lymph # (Auto) (1.0 - 3.8 x10 3/uL) 1.02 [place] # (Auto) (0.1 - 0.8 x10 3/uL) [...] labs in ampain control at 1520 RPT #:[id number] OF REPORTPRProgress razb5131-13-44W80:16:00G.QUEE23944585-4510T VAvailable for patient kvudRGXKQQQMYBMXZX1583-79-94J68:20:45 [facility] 2022-09-13 15:08:00 [id number]/o0ixaTDLagA8JsAt zj2 Cf/GPGXlQhl3pjUWvvseOAq+9uNpsjb5p9144-75-42 T15:08:782659-3331 [place] [address] PATIENT NAME: KARMA ROWLAND ADMIT DATE: 09/02/22ACCOUNT NO: [id number] ROOM NO: G.537 AGE: 56 REPORT TYPE: eECHOCARDIOGRAM REPORT SEX: M ADMITTING PHYSICIAN:Mj Vences MD ATTENDING PHYSICIAN:Mj Vences MD *[place] [id number]: Got: [phone] Limited Transthoracic Echocardiogram Patient: Beata RowlandoStudy Date: 09/12/2022 BP: 136 / 76 Location: ALLA: [id number] : 1965 Age: 56 Height: 66 in / 167.6 cmAccession#: [id number] Gender: M Weight: 164.7 lb / 74.8 kgBMI/BSA: 26.6 kg/m 2 / 1.88 m 2 *Ordering Physician: * Rohit BenitezInterpreting Physician: * Napoleon Parham MD*Entry Level Electrical Engineer: HÉCTOR Guerin Indications: EVAL LV SYSTOLIC/DIASTOLIC FUNCTION. Study data: Transthoracic echocardiogram, limited study. Procedure:Transthoracic echocardiography was performed. Images were obtained usinga Cortica cardiac ultrasound machine. Image quality was good. [...] --------- Peak A 1.06 m/sec ---------PATIENT NAME: KARMA ROWLAND Mean v, D 0.82 m/sec --------- VTI [...] 15:08 at 1508 PATIENT NAME: KARMA ROWLAND 5:08:00G.[id number] for patient btpvXDNYYATJNFGDQU4093-77-72N68:09:03 [facility] 2022-09-13 07:46:00 [id number]OpLC o9w qsXyOeiF+Bh4Zet0TP4b4nnnpMGx/H5vy2473-06-59 T07:46:00 [facility] (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 every 4 hours [...] whom agrees. Thank you for the consultation. 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:-database searched, no information found at 1453 at 1149 RPT #:[id number] OF REPORTPRProgress hcyb3471-06-80N41:46:00G.[id number] VAvailable for patient zmayBXIZHSUBIQJMRS1784-98-97R12:53:30 [facility] 2022-09-13 06:34:00 [id number]O /oy hj3tEs1Cig8/8llZzuWDN6S4pgWFr8xtO7494-30-78 T06:34:00 [facility] NoteREPORT#:[id number] REPORT STATUS: SignedDATE:09/13/22 TIME: 06 PATIENT: KARMA ROWLAND UNIT #: [id number]#: [id number] [address] AGE: 56 SEX: M ATTEND: Mj Vences [facility] AUTHOR: Guero Candelaria * ALL edits or amendments must be made on the electronic/computer document * SubjectiveChief complaint:Rehab follow-upDoing wellReports thigh and pelvic area edemaEating 75-100% at bedside+ BMDenies CARRASCO/N/V/D/CP14 systems reviewed and neg. except that above.History [...] homans neg), BUE 5/5, LLE4/5, R hip 3-Neuro/CONTRACT RUNNER: alert, oriented X 3, CNII-XII intact ResultsFindings/Data:Laboratory Tests: 09/13 1606 1115 1105Chemistry POC Glucose (70 - [...] to left heel/DTI dorsal left midfootProstatic abscess /: S/p transrectal ultrasound aspiration of abscess and [...] than 5, dietaryconsultation, protein supplements to promote wpkvvld-Bfgucppx-J0r 14, tight glycemia control- endocrine on board, insulin adjustments-Endocrinology, ID, podiatry, cardiology, IM consulted-Pain management adjusting pain medications-Anemia, patient required multiple units of PRBCs on acute, FOBT positive-IV Protonix-consult GI-serial H H-no evidence of gross bleeding-discussed with Dr. TrinidadLmoujwjp-Blpvegoftfwu-wzrxbburk rihbfkuw-ENN-jnbytm-CW Senokot and MiraLAX, DSP-Right GJM-vhhdqhh-mlrgdtgq resolved, dressings changed ffzms-erpwatj-sokthywd SFA-RQJU-CAEU OF NARES on Bactroban protocol-LLE edema-venous Doppler [...] and elevation-Chest x-ray with minimal basilar pulmonary zjhjaucmh-Hnukdc-zbhdsgkcqj 8.3, 7.7, transfused 2 units of PRBC [...] Agree with interdisciplinary treatment plan. at 2051 [facility] #:[id number] OF REPORTPRProgress lsrl5237-65-44H42:34:00G.[id number] VAvailable for patient mnqrUHMOVQOMRYBYNT9062-66-82V73:52:01 [facility] 2022-09-12 20:28:00 [id number]+37WAgoaq5Lj5uz/10suNFsSLV 7xB 6hljkDlZk6XdiyuvdMWsGKbE/KlxCOwzY6526-57-13 T20:28:00 [facility])Podiatry Progress NoteREPORT#:[id number] REPORT STATUS: SignedDATE:09/12/22 TIME: 2027 PATIENT: KARMA ROWLAND UNIT #: [id number]#: [id number] [address] AGE: 56 SEX: M ATTEND: Mj Vences [facility] AUTHOR: Liam Pedersen DPM * ALL edits [...] % (Auto) (14.0 - 32.0 %) 15.0 [place] % (Auto) (4.8 - 9.0 %) 7.9 Eos % (Auto) (0.3 - 3.7 %) 3.8 H Baso % (Auto) (0.0 - 2.0 %) 0.3 Neut # (Auto) (2.0 - 7.6 x10 3/uL) 6.34 Lymph # (Auto) (1.0 - 3.8 x10 3/uL) 1.31 [place] # (Auto) (0.1 - 0.8 x10 3/uL) [...] hospitalist, infectious disease, podiatry at 2030 RPT #:[id number] OF REPORTPRProgress apof3681-01-14L40:28:00G.[id number] VAvailable for patient tyruBQSIWFYJPVVPUD5567-69-82O40:30:38 [facility] 2022-09-12 18:02:00 [id number]+YAL0o16LXcPR YLS ld/JbkWJrIs/MUxL44BjgXZLeuCtrLiK45265-29-29 T18:02:00 [facility])Endocrinology Progress NoteREPORT#:[id number] REPORT STATUS: SignedDATE:09/12/22 TIME: 1801 PATIENT: KARMA ROWLAND UNIT #: [id number]#: [id number] [address] AGE: 56 SEX: M ATTEND: [...] % (Auto) (14.0 - 32.0 %) 15.0 [place] % (Auto) (4.8 - 9.0 %) 7.9 Eos % (Auto) (0.3 - 3.7 %) 3.8 H Baso % (Auto) (0.0 - 2.0 %) 0.3 Neut # (Auto) (2.0 - 7.6 x10 3/uL) 6.34 Lymph # (Auto) (1.0 - 3.8 x10 3/uL) 1.31 [place] # (Auto) (0.1 - 0.8 x10 3/uL) [...] % (Auto) (14.0 - 32.0 %) 16.1 [place] % (Auto) (4.8 - 9.0 %) 9.1 H Eos % (Auto) (0.3 - 3.7 %) 5.6 H Baso % (Auto) (0.0 - 2.0 %) 0.5 Neut # (Auto) (2.0 - 7.6 x10 3/uL) 5.35 Lymph # (Auto) (1.0 - 3.8 x10 3/uL) 1.27 [place] # (Auto) (0.1 - 0.8 x10 3/uL) [...] % (Auto) (14.0 - 32.0 %) 15.5 [place] % (Auto) (4.8 - 9.0 %) 8.5 Eos % (Auto) (0.3 - 3.7 %) 5.5 H Baso % (Auto) (0.0 - 2.0 %) 0.4 Neut # (Auto) (2.0 - 7.6 x10 3/uL) 5.94 Lymph # (Auto) (1.0 - 3.8 x10 3/uL) 1.33 [place] # (Auto) (0.1 - 0.8 x10 3/uL) [...] % (Auto) (14.0 - 32.0 %) 16.1 [place] % (Auto) (4.8 - 9.0 %) 9.2 H Eos % (Auto) (0.3 - 3.7 %) 4.7 H Baso % (Auto) (0.0 - 2.0 %) 0.4 Neut # (Auto) (2.0 - 7.6 x10 3/uL) 6.38 Lymph # (Auto) (1.0 - 3.8 x10 3/uL) 1.49 [place] # (Auto) (0.1 - 0.8 x10 3/uL) [...] (Auto) (14.0 - 32.0 %) 13.7 L [place] % (Auto) (4.8 - 9.0 %) 7.2 Eos % (Auto) (0.3 - 3.7 %) 4.8 H Baso % (Auto) (0.0 - 2.0 %) 0.3 Neut # (Auto) (2.0 - 7.6 x10 3/uL) 6.64 Lymph # (Auto) (1.0 - 3.8 x10 3/uL) 1.24 [place] # (Auto) (0.1 - 0.8 x10 3/uL) [...] By: TipRG17 - Roger Parra M.D.ULTRASOUND - [facility]/LTD 09/05 1146 Report Impression - Status: SIGNED Entered: 09/05/2022 1333 IMPRESSION: 1. No evidence of deep vein thrombosis. 2. Complex heterogeneous hypoechoic fluid collection in the left calf region measuring 8.4 x 2.8 x 2.5 cm; there is no internal vascularity or peripheral hyperemia. May represent a hematoma.Impression By: TipAB53 Cr Ga M.D.RADIOLOGY - XR CHEST 1 V [...] Sepsis5. Prostate abscess.6. AnemiaBlood sugar 167-68 mg/dL.H/H 8.6/26.Adjust insulin dose.PT and OT. at 1803 RPT #:[id number] OF REPORTPRProgress ppcj3187-07-96Q87:02:00G.SHUC73108164-1680V VAvailable for patient cujoAYTMZZDHRRMUHZ6219-94-73I91:04:10 [facility] 2022-09-12 09:52:00 [id number]+O+ed64uSO 5CL oeX6UbkhQX/60ivOPTt7YHSLHK8Ayy0Ht5124-93-09 T09:52:00 [facility] ([facility])Hospitalist Progress NoteREPORT#:[id number] REPORT STATUS: SignedDATE:09/12/22 TIME: 09 PATIENT: KARMA ROWLAND UNIT #: [id number]#: [id number] ROOM/BED: [facility]1DOB: [birth year] AGE: 56 SEX: M ATTEND: Mj Vences [facility] AUTHOR: Wilbert Ramires MD * ALL edits [...] capillary refillMusculoskeletal: normal inspection, painless range of motionNeuro/CONTRACT RUNNER: alert, oriented X 3, 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 Considered [...] % (Auto) (14.0 - 32.0 %) 15.0 [place] % (Auto) (4.8 - 9.0 %) 7.9 Eos % (Auto) (0.3 - 3.7 %) 3.8 H Baso % (Auto) (0.0 - 2.0 %) 0.3 Neut # (Auto) (2.0 - 7.6 x10 3/uL) 6.34 Lymph # (Auto) (1.0 - 3.8 x10 3/uL) 1.31 [place] # (Auto) (0.1 - 0.8 x10 3/uL) [...] per cardio and renal at 1059 RPT #:[id number] OF REPORTPRProgress gzni0511-93-34P79:52:00G.NGYM10891868-3496J VAvailable for patient goycLMMNYWHQXXGOML3173-10-42G76:55:30 [facility] 2022-09-12 09:19:00 [id number]+TtHwiW fVt ZaY14tGb1dMPjvw+prW5lQykSYfSmL4t26374-72-38 T09:19:00 [facility] ([facility])Rehab Progress NoteREPORT#:[id number] REPORT STATUS: SignedDATE:09/12/22 TIME: 918 PATIENT: KARMA ROWLAND UNIT #: [id number]#: [id number] [address] [birth year] AGE: 56 SEX: M ATTEND: Mj Vences [facility] AUTHOR: Mj Vences MD * ALL edits or amendments must be made on the electronic/computer document * SubjectiveChief complaint:Rehab follow-upDoing wellPatient worried about edemaEating 75-100% at bedside+ BMDenies CARRASCO/N/V/D/CP14 systems reviewed and neg. except that above.History [...] homans neg), BUE 5/5, LLE4/5, R hip 3-Neuro/CONTRACT RUNNER: alert, oriented X 3, CNII-XII intact ResultsFindings/Data:Laboratory [...] % (Auto) (14.0 - 32.0 %) 15.0 [place] % (Auto) (4.8 - 9.0 %) 7.9 Eos % (Auto) (0.3 - 3.7 %) 3.8 H Baso % (Auto) (0.0 - 2.0 %) 0.3 Neut # (Auto) (2.0 - 7.6 x10 3/uL) 6.34 Lymph # (Auto) (1.0 - 3.8 x10 3/uL) 1.31 [place] # (Auto) (0.1 - 0.8 x10 3/uL) [...] Report Impression - Status: SIGNED Entered: 09/05/2022 5760 IMPRESSION: Minimal bibasilar pulmonary opacitiesImpression By: Yared [...] surgical debridement and washout4: S/p right BKA-Dr. LeroySignificant impairment in self-care, [...] than 5, dietaryconsultation, protein supplements to promote vieswuy-Lzogigvl-T8i 14, tight glycemia control- endocrine on board, insulin adjustments-Endocrinology, ID, podiatry, cardiology, IM consulted-Pain management adjusting pain medications-Anemia, patient required multiple units of PRBCs on acute, FOBT positive-IV Protonix-consult GI-serial H H-no evidence of gross bleeding-discussed with Dr. TrinidadGtwlxyxj-Oczxmlozidef-cmkptypbd yntmkmoo-GAJ-qjxrkh-CW Senokot and MiraLAX, DSP-Right UDY-lybhdaj-qxlwkdwr resolved, dressings changed zdxep-aidqxff-lpzrpnde YNG-GXFN-OAUM OF NARES on Bactroban protocol-LLE edema-venous Doppler [...] and elevation-Chest x-ray with minimal basilar pulmonary uobqzmkva-Yfkszp-aqitwutfns 8.3, 7.7, transfused 2 units of PRBC [...] with interdisciplinary treatment plan. at 1324 RPT #:[id number] OF REPORTPRProgress ccme8243-52-09M73:19:00G.VDXM61321647-3561X VAvailable for patient xpkjGKVJRVJACMZTUS4663-29-94I64:24:32 [facility] 2022-09-12 09:16:00 [id number]RrG5 uMd 6Y+WAVZmgVbraXp1iCRAUhNLm/XheQXMJ4239-18-43 T09:16:00 [facility] (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 Parham. Napoleon Parham 09/13/22 1458:Diagnosis, Assessment PlanAdditional comments:Patient was seen and examined at bedside, agree with above assessment and plan as documented by nurse practitioner. Discussed with patient, and primary team, will follow. at 1605 at 1502 RPT #:[id number] OF REPORTPRProgress ylyq7323-58-39O58:16:00G.JZOO37943171-6145V VAvailable for patient jmanOXVINDLRCWOLKW4475-47-40M88:06:03 [facility] 2022-09-12 09:11:00 [id number]Jh3l Uiv /FtwkzhhqLZ2XYmo16Dn1UmmgjH1ULVok9998-41-92 T09:11:00 [facility])Gastroenterology Progress NoteREPORT#:[id number] REPORT STATUS: SignedDATE:09/12/22 TIME: 910 PATIENT: KARMA ROWLAND UNIT #: [id number]#: [id number] [address] [birth year] AGE: 56 SEX: M ATTEND: Mj Vences [facility] AUTHOR: Kassie Avitia MD * ALL edits [...] hospitalist, infectious disease, podiatry at 0913 RPT #:[id number] OF REPORTPRProgress cyho0856-19-49T92:11:00G.PLXD21237001-0696P VAvailable for patient zreqDHJEDEDJLZUWFC2285-14-26X85:13:31 [facility] 2022-09-12 08:35:00 [id number]dwx8 O/i Nd9KJTmCUKgdipYhTRlrzkqDBtLXbc7oz3661-03-44 T08:35:00 [facility] ([facility])Infectious Dis. Progress NoteREPORT#:[id number] REPORT STATUS: SignedDATE:09/12/22 TIME: 0835 PATIENT: KARMA ROWLAND UNIT #: [id number]#: [id number] [address] [birth year] AGE: 56 SEX: M ATTEND: Mj Vences [facility] AUTHOR: Merry Wolff MD * ALL edits [...] chills09/12 doing well, working with PT in [facility] Resource GroupPatient reports:No: cough, diarrhea, fever, headache, nausea, shortness of breath, vomiting. Portions of this section were scribed by Jill Quintero on 09/12/22 at 1209 Objective GeneralVS/I O:Vital SignsDate Temp Pulse Resp B/P B/P Mean Pulse Ox JiD644/-09/12 97.7-98.1 74-83 14-18 113-162/62-80 78.7-106.3 95-97 Last [...] right BKA Left foot wound +dressing in placeNeuro/CONTRACT RUNNER: alert, oriented X 3 Considered stroke alert: [...] % (Auto) (14.0 - 32.0 %) 15.0 [place] % (Auto) (4.8 - 9.0 %) 7.9 Eos % (Auto) (0.3 - 3.7 %) 3.8 H Baso % (Auto) (0.0 - 2.0 %) 0.3 Neut # (Auto) (2.0 - 7.6 x10 3/uL) 6.34 Lymph # (Auto) (1.0 - 3.8 x10 3/uL) 1.31 [place] # (Auto) (0.1 - 0.8 x10 3/uL) [...] Jill Quintero on 09/12/22 at 1209 at 1629 RPT #:[id number] OF REPORTPRProgress lsoy3315-05-63V05:35:00G.EOAD56933959-7354I VAvailable for patient ijsbMEQULFGFTEYIVS7990-48-55H67:22:06 [facility] 2022-09-12 07:08:00 [id number]/zZ2mSy853kWOw/jS4t 6JV eh+KmM6VWWmpya2YsvTDdhiDmJVKJySVq8410-43-36 T07:08:00 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 every 4 hours as needed pain scale 4 10-Tylenol 650 mg p.o. every 6 hours as needed pain scale 1 3-reduce Dilaudid 0.5 mg IV daily as needed pain scale 7 10, second line therapy (09/12)-Percocet 10/325mg every 4 hours as needed, pain scale 4-10 (09/10)-Lidoderm patch to left ankle daily-IV antibiotics with vancomycin until 0-1-3961-Local wound care-manageable Diabetic peripheral neuropathy-amitriptyline 25mg PO [...] whom agrees. Thank you for the consultation. 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 I personally saw the patient and developed the care plan, which was continued by the mid-level provider. at 1051 at 0835 RPT #:[id number] OF REPORTPRProgress fdmg1255-03-31S26:08:00G.YIBM42851440-6083F VAvailable for patient pdaqZMXGRXRPQYXDKG0905-95-09X32:51:39 [facility] 2022-09-12 06:09:00 [id number]j3+d oC8 qcKdZBpDPdU6BZ+mAqzoxYoM25j+d3tt45710-46-47 T06:09:00 [facility] ([facility])Nephrology Progress NoteREPORT#:[id number] REPORT STATUS: SignedDATE:09/12/22 TIME: 0609 PATIENT: KARMA ROWLAND UNIT #: [id number]#: [id number] [address] AGE: 56 SEX: M ATTEND: [facility] AUTHOR: Barrera Ramírez MD * ALL edits [...] pitting edema, non-tenderMusculoskeletal: no CVA tenderness, no tendernessNeuro/CONTRACT RUNNER: alert, 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 Considered stroke alert: noSkin: [...] 30 L 90 Laboratory Tests 09/11 09/10 7535 0535 Hematology WBC (4.5 - 11.0 x10 3/uL) [...] (Auto) (14.0 - 32.0 %) 16.1 15.5 [place] % (Auto) (4.8 - 9.0 %) 9.1 H 8.5 Eos % (Auto) (0.3 - 3.7 %) 5.6 H 5.5 H Baso % (Auto) (0.0 - 2.0 %) 0.5 0.4 Neut # (Auto) (2.0 - 7.6 x10 3/uL) 5.35 5.94 Lymph # (Auto) (1.0 - 3.8 x10 3/uL) 1.27 1.33 [place] # (Auto) (0.1 - 0.8 x10 3/uL) [...] hospitalist, infectious disease, podiatry at 1045 RPT #:[id number] OF REPORTPRProgress mggp8181-96-63V32:09:00G.PWZB31219033-8967E VAvailable for patient pukuWKEBFRWMECUYXF5447-02-27W96:45:38 [facility] 2022-09-11 17:23:00 [id number]+ylbJMJysQDgw dN IbdROpk6nIcP78C7s7MsPqdYdJ9hZtQm19914-50-59 T17:23:00 [facility] ([facility])Endocrinology Progress NoteREPORT#:[id number] REPORT STATUS: SignedDATE:09/11/22 TIME: 1722 PATIENT: KARMA ROWLAND UNIT #: [id number]#: [id number] [address] AGE: 56 SEX: M ATTEND: Mj Vences [facility] AUTHOR: Braxton Chapin MD * ALL edits [...] % (Auto) (14.0 - 32.0 %) 16.1 [place] % (Auto) (4.8 - 9.0 %) 9.1 H Eos % (Auto) (0.3 - 3.7 %) 5.6 H Baso % (Auto) (0.0 - 2.0 %) 0.5 Neut # (Auto) (2.0 - 7.6 x10 3/uL) 5.35 Lymph # (Auto) (1.0 - 3.8 x10 3/uL) 1.27 [place] # (Auto) (0.1 - 0.8 x10 3/uL) [...] % (Auto) (14.0 - 32.0 %) 15.5 [place] % (Auto) (4.8 - 9.0 %) 8.5 Eos % (Auto) (0.3 - 3.7 %) 5.5 H Baso % (Auto) (0.0 - 2.0 %) 0.4 Neut # (Auto) (2.0 - 7.6 x10 3/uL) 5.94 Lymph # (Auto) (1.0 - 3.8 x10 3/uL) 1.33 [place] # (Auto) (0.1 - 0.8 x10 3/uL) [...] % (Auto) (14.0 - 32.0 %) 16.1 [place] % (Auto) (4.8 - 9.0 %) 9.2 H Eos % (Auto) (0.3 - 3.7 %) 4.7 H Baso % (Auto) (0.0 - 2.0 %) 0.4 Neut # (Auto) (2.0 - 7.6 x10 3/uL) 6.38 Lymph # (Auto) (1.0 - 3.8 x10 3/uL) 1.49 [place] # (Auto) (0.1 - 0.8 x10 3/uL) [...] (Auto) (14.0 - 32.0 %) 13.7 L [place] % (Auto) (4.8 - 9.0 %) 7.2 Eos % (Auto) (0.3 - 3.7 %) 4.8 H Baso % (Auto) (0.0 - 2.0 %) 0.3 Neut # (Auto) (2.0 - 7.6 x10 3/uL) 6.64 Lymph # (Auto) (1.0 - 3.8 x10 3/uL) 1.24 [place] # (Auto) (0.1 - 0.8 x10 3/uL) [...] Sepsis5. Prostate abscess.6. AnemiaBlood sugar 109-130 mg/dL.H/H 8./.Adjust insulin dose.PT and OT. at 1724 RPT #:[id number] OF REPORTPRProgress gsor3472-98-99K10:23:00G.FYCJ38462310-6656Z VAvailable for patient tfadSFKXSMCHHNWGSF4768-64-22T26:24:45 [facility] 2022-09-11 16:34:00 [id number]+4CMmaTANvnF+/uU PTG pk4AYs8q2LPr8S1JGlxMKnyVl2lRqy7Qu8874-38-74 T16:34:00 [facility]-VancomycinREPORT#:[id number] REPORT STATUS: SignedDATE:09/11/22 TIME: 1634 PATIENT: KARMA ROWLAND UNIT #: [id number]#: [id number] [address] AGE: 56 SEX: M ATTEND: Mj Vences [facility] AUTHOR: Joselyn Stock [facility] * ALL edits or amendments must be made on the electronic/computer document * See AddendumVancomycin Vancomycin Medication TherapyGoal: Random 15-20 mcg/mLIndication for treatment:OM and MRSA BacteremiaVS and I/O:Vital SignsDate Temp Pulse Resp B/P B/P Mean Pulse Ox UjQ097/-09/11 97.3-98.2 70-91 15-18 133-168/64-83 87.1-110.6 94-99 72 hours ending at 0700 09/11 0700 09/10 1900 09/10 0700 09/09 1900 09/09 09/08 07 1900Intake 715 250.00TotalOutput 1000 850TotalBalance -1000 715 [...] to assess clearance at 1642 Addendum 1: 09/11/22 2307 by Beti Willoughby [facility] * level drawn @2130 ( 29 hrs after prev dose); resulted 16.7 mcg/mL (therapeutic)* will give vancomycin 500 mg IV once, plan for random 30hr level 09/13 0500* pharmacy will continue to follow and adjust as appropriate at 2307 [facility] #:[id number] OF REPORTPRProgress zdqq9513-69-86D95:34:00G.TWUU95631535-2961G VAvailable for patient jnddZQZUPWMJQXGYQB8407-40-73P10:43:09 [facility] 2022-09-11 11:30:00 [id number]/1QJkOIpAX74OxUBLqzizrrBwf xk8 Ysy1dXKHPbNev1JziGD/Ru7FXlq/Vo5r99327-47-33 T11:30:00 [facility] Progress NoteREPORT#:[id number] REPORT STATUS: SignedDATE:09/11/22 TIME: 1130 PATIENT: KARMA ROWLAND UNIT #: [id number]#: [id number] ROOM/BED: [facility]-OB: [birth year] AGE: 56 SEX: M ATTEND: Mj Vences [facility] AUTHOR: Wilbert Ramires MD * ALL edits [...] capillary refillMusculoskeletal: normal inspection, painless range of motionNeuro/CONTRACT RUNNER: alert, oriented X 3, 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 Considered [...] meds depending on trends at 1131 RPT #:[id number] OF REPORTPRProgress tiza7649-68-19E96:30:00G.NRGP25084454-3179X VAvailable for patient jsdgXOYBJETCHVGKPT1063-66-90P10:31:38 [facility] 2022-09-11 10:41:00 [id number]+x4DmhFTHiRqfqFmtN8Q/VKxplMw FF7 1IR2pxecC7nrGwWNETfsNRUK21BlMLr6P6208-85-25 T10:41:00 [facility])Rehab Progress NoteREPORT#:[id number] REPORT STATUS: SignedDATE:09/11/22 TIME: 1041 PATIENT: KARMA ROWLAND UNIT #: [id number]#: [id number] [address] AGE: 56 SEX: M ATTEND: Mj Vences AUTHOR: Mj Vences MD * ALL edits or amendments must be made on the electronic/computer document * SubjectiveChief complaint:Rehab follow-upPatient doing well, sitting up in wheelchairDecrease edema of LLE+ BMEating 75-100% at bedsideDenies CARRASCO/N/V/D/CP14 systems reviewed and neg. except that above.History [...] homans neg), BUE 5/5, LLE4/5, R hip 3-Neuro/CONTRACT RUNNER: alert, oriented X 3, CNII-XII intact ResultsFindings/Data:Laboratory [...] % (Auto) (14.0 - 32.0 %) 16.1 [place] % (Auto) (4.8 - 9.0 %) 9.1 H Eos % (Auto) (0.3 - 3.7 %) 5.6 H Baso % (Auto) (0.0 - 2.0 %) 0.5 Neut # (Auto) (2.0 - 7.6 x10 3/uL) 5.35 Lymph # (Auto) (1.0 - 3.8 x10 3/uL) 1.27 [place] # (Auto) (0.1 - 0.8 x10 3/uL) [...] debridement and washout4/6: S/p right MIGUEL ANGEL-Dr. Greenberggnificant impairment in self-care, ADLs and functional [...] than 5, dietaryconsultation, protein supplements to promote ubvexda-Ojxnrfux-T5b 14, tight glycemia control- endocrine on board, insulin adjustments-Endocrinology, ID, podiatry, cardiology, IM consulted-Pain management adjusting pain medications-Anemia, patient required multiple units of PRBCs on acute, FOBT positive-IV Protonix-consult GI-serial H H-no evidence of gross bleeding-discussed with Dr. TrinidadOwnqpaic-Qqvqargltnvp-sedanasas yukekzof-REL-mplmlw-CW Senokot and MiraLAX, DSP-Right YZJ-mfausgh-hqzrvcvw resolved, dressings changed abtwl-fazxvex-sqhqtaeo CUO-KBFA-ZQPD OF NARES on Bactroban protocol-LLE edema-venous Doppler [...] and elevation-Chest x-ray with minimal basilar pulmonary vpyiucrrp-Uagbsn-llhkytfkwq 8.3, transfused 2 units of PRBC on [...] Agree with interdisciplinary treatment plan. 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 at 1823 at 1502 [facility] #:[id number] OF REPORTPRProgress pewh9929-08-77P17:29:00G.[id number] VAvailable for patient zbsyOVTCJWBALLFXEY7406-13-13R72:23:40 [facility] 2022-09-11 09:23:00 [id number] mi6 xcmjGEvlMjEid8OpsX5+Kvif/Nuif/ZFb8005-43-93 T09:23:00 [facility] ([facility])Infectious Dis. Progress NoteREPORT#:[id number] REPORT STATUS: SignedDATE:09/11/22 TIME: 922 PATIENT: KARMA ROWLAND UNIT #: [id number]#: [id number] ROOM/BED: G.537-1DOB: [birth year] AGE: 56 SEX: M ATTEND: Mj Vences [facility] AUTHOR: Merry Wolff MD * ALL edits [...] Pulse Resp B/P B/P Mean Pulse Ox LxO642/19-09/11 97.5-97.9 70-81 16-18 137-153/71-79 92.8-103.6 96-99 Last [...] right BKA Left foot wound +dressing in placeNeuro/CONTRACT RUNNER: alert, oriented X 3 Considered stroke alert: [...] 09/10 09/10 09/09 1430 1007 0545 0541 1911Chemistry Sodium (134 - 147 mEq/L) 135 [...] % (Auto) (14.0 - 32.0 %) 15.5 [place] % (Auto) (4.8 - 9.0 %) 8.5 Eos % (Auto) (0.3 - 3.7 %) 5.5 H Baso % (Auto) (0.0 - 2.0 %) 0.4 Neut # (Auto) (2.0 - 7.6 x10 3/uL) 5.94 Lymph # (Auto) (1.0 - 3.8 x10 3/uL) 1.33 [place] # (Auto) (0.1 - 0.8 x10 3/uL) [...] (mcg/mL) 15.4 Recent Impressions:ULTRASOUND - US RETROPERITONEAL COM [...] BEDTIME 09/04 2100 AC 09/10 PO 10/04 2058 210 Acetaminophen 650 MG Q6H PRN PRN [...] Sodium 40 MG Q12HR 09/05 0900 AC 09/11 IV 10/05 0859 0920 Polyethylene Glycol 17 GM DAILY 09/05 0900 AC 09/11 PO 10/05 0859 0918 Sennosides [...] Lidocaine 1 PATCH DAILY 09/03 899 AC 09/11 TOPICAL 10/03 0859 0918 Skin And Mucous Membrane Agent Sig/Jan Start time Last Medication Dose Route Stop Time Status Admin Zinc Oxide 1 APPLIC DAILY 09/04 899 AC 09/11 TOPICAL 10/05 0759 09 Vitamins Sig/Jan Start time Last Medication Dose Route Stop Time Status Admin Folic Acid 2 MG DAILY 09/09 899 AC 09/11 PO 10/10 0759 09 Multivitamins 1 TAB DAILY 09/09 899 AC 09/11 PO 10/10 0759 09 Dose Instructions:(1)Sterile Water: DRESSING CHANGE Recent Impressions:ULTRASOUND - US RETROPERITONEAL COM 09/10 [...] on 09/11/22 at 1457 at 0744 RPT #:[id number] OF REPORTPRProgress gjxl1726-96-07C90:23:00G.[id number] VAvailable for patient xknqETUZUVWZFJRAWT0479-08-50G88:45:52 [facility] 2022-09-11 08:03:00 [id number]+MClaRynyf+dQdUSO4 ZTC z2RsEXCb0OjVK8N71Eu/MF4+3/LK/Jny64063-98-72 T08:03:00 [facility])Podiatry Progress NoteREPORT#:[id number] REPORT STATUS: SignedDATE:09/11/22 TIME: 0803 PATIENT: KARMA ROWLAND UNIT #: [id number]#: [id number] [address] [birth year] AGE: 56 SEX: M ATTEND: Mj Vences [facility] AUTHOR: Liam Pedersen DPM * ALL edits [...] hospitalist, infectious disease, podiatry at 0804 RPT #:[id number] OF REPORTPRProgress cozj5263-21-45T49:03:00G.[id number] VAvailable for patient vaffBCIREKXMNXHPNA2886-47-55O07:05:34 [facility] 2022-09-11 07:59:00 [id number]G wRl Rogelio/XjQidUT12zBkAv1ss9GvytNc6vo0052-51-93 T07:59:00 [facility] ([facility])Gastroenterology Progress NoteREPORT#:[id number] REPORT STATUS: SignedDATE:09/11/22 TIME: 758 PATIENT: KARMA ROWLAND UNIT #: [id number]#: [id number] [address] [birth year] AGE: 56 SEX: M ATTEND: [...] hospitalist, infectious disease, podiatry at 0800 RPT #:[id number] OF REPORTPRProgress jknx4964-06-94V14:59:00G.[id number] VAvailable for patient ijarGRKALCTOKPGNZY6872-90-84V40:00:44 [facility] 2022-09-11 07:35:00 [id number]/wbUO0 j6B bspbMImLLIII9F/7aO8rqDo9hNRYqihbS1306-03-38 T07:35:00 [facility] ([facility])Nephrology Progress NoteREPORT#:[id number] REPORT STATUS: SignedDATE:09/11/22 TIME: 0735 PATIENT: KARMA ROWLAND UNIT #: [id number]#: [id number] [address] [birth year] AGE: 56 SEX: M ATTEND: Mj Vences [facility] AUTHOR: Barrera Ramírez MD * ALL edits [...] pitting edema, non-tenderMusculoskeletal: no CVA tenderness, no tendernessNeuro/CONTRACT RUNNER: alert, 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 Considered stroke alert: noSkin: [...] 09/09 09/09 09/08 09/08 1049 0524 0500 195 1828Chemistry Sodium (134 - 147 mEq/L) 136 [...] Tests 09/10 09/09 09/08 09/08 0545 0500 2040 1828 Hematology WBC (4.5 - 11.0 x10 [...] (Auto) (14.0 - 32.0 %) 15.5 16.1 [place] % (Auto) (4.8 - 9.0 %) 8.5 9.2 H Eos % (Auto) (0.3 - 3.7 %) 5.5 H 4.7 H Baso % (Auto) (0.0 - 2.0 %) 0.4 0.4 Neut # (Auto) (2.0 - 7.6 x10 3/uL) 5.94 6.38 Lymph # (Auto) (1.0 - 3.8 x10 3/uL) 1.33 1.49 [place] # (Auto) (0.1 - 0.8 x10 3/uL) [...] hospitalist, infectious disease, podiatry at 0939 RPT #:[id number] OF REPORTPRProgress mfqk6452-00-52T64:35:00G.KRHR43067650-7817V VAvailable for patient umzoBEXKKZQJLNTYIO1114-53-70P83:40:21 [facility] 2022-09-11 06:12:00 [id number]+OxsQ0v 2 Rr69YvUPmVrg0ULMpcrMOGfLIQrCgWyTy4577-23-39 T06:12:00 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 Chart/MAR reviewed. [...] bowel soundsExtremities: moves all, no edema, pedal pulsesNeuro/CONTRACT RUNNER: 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, no sensory deficits, CNII-XII [...] to comorbid conditions-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 every 4 hours [...] left ankle daily-IV antibiotics with vancomycin until 6-4-1456-Local wound care-manageable Diabetic peripheral neuropathy-amitriptyline 25mg PO [...] whom agrees. Thank you for the consultation. 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 I personally developed thecare plan, which was continued by the mid-level provider. I was immediately available. at 1247 at 1748 RPT #:[id number] OF REPORTPRProgress xytl7360-64-51C89:12:00G.XVBC08107051-2131F VAvailable for patient ejtwZBHKGWMYVOJQBO2223-22-27G96:48:26 [facility] 2022-09-10 19:53:00 [id number]v896 XZk NZRG4f7p2N3RM4uUU34u564vwxaDewoqS9784-28-63 T19:53:00 [facility])Podiatry Progress NoteREPORT#:[id number] REPORT STATUS: SignedDATE:09/10/22 TIME: 1952 PATIENT: KARMA ROWLAND UNIT #: [id number]#: [id number] [address] AGE: 56 SEX: M ATTEND: Mj Vences [facility] AUTHOR: Liam Pedersen DPM * ALL edits [...] Toxicology Random Vancomycin (mcg/mL) 15.7 09/10 09/10 0509 1356 Chemistry Sodium (134 - 147 mEq/L) 135 [...] % (Auto) (14.0 - 32.0 %) 15.5 [place] % (Auto) (4.8 - 9.0 %) 8.5 Eos % (Auto) (0.3 - 3.7 %) 5.5 H Baso % (Auto) (0.0 - 2.0 %) 0.4 Neut # (Auto) (2.0 - 7.6 x10 3/uL) 5.94 Lymph # (Auto) (1.0 - 3.8 x10 3/uL) 1.33 [place] # (Auto) (0.1 - 0.8 x10 3/uL) [...] hospitalist, infectious disease, podiatry at 1954 RPT #:[id number] OF REPORTPRProgress xfeu5728-58-84D48:53:00G.XQEW65124953-7593U VAvailable for patient eefxDRVEXQTCHGJPKN4919-64-73K53:54:51 [facility] 2022-09-10 17:52:00 [id number]Ptwq ea2 zY2n+7ZlJ0gjaZU7Doyzl5pkC8FCrWZy95067-55-47 T17:52:00 [facility] ([facility])Endocrinology Progress NoteREPORT#:[id number] REPORT STATUS: SignedDATE:09/10/22 TIME: 175 PATIENT: BEATA ROWLANDO UNIT #: [id number]#: [id number] [address] AGE: 56 SEX: M ATTEND: Mj Vences MDADM AUTHOR: Braxton Chapin MD * ALL edits or amendments must be made on the electronic/computer document * SubjectivePatient reports: no complaints Objective GeneralVS:Last Documented: Result Date Time Pulse Ox 99 09/10 1627 B/P 147/78 09/10 1627 B/P Mean 100.9 09/10 1627 O2 Delivery Room air 09/10 162 Temp [...] % (Auto) (14.0 - 32.0 %) 15.5 [place] % (Auto) (4.8 - 9.0 %) 8.5 Eos % (Auto) (0.3 - 3.7 %) 5.5 H Baso % (Auto) (0.0 - 2.0 %) 0.4 Neut # (Auto) (2.0 - 7.6 x10 3/uL) 5.94 Lymph # (Auto) (1.0 - 3.8 x10 3/uL) 1.33 [place] # (Auto) (0.1 - 0.8 x10 3/uL) [...] % (Auto) (14.0 - 32.0 %) 16.1 [place] % (Auto) (4.8 - 9.0 %) 9.2 H Eos % (Auto) (0.3 - 3.7 %) 4.7 H Baso % (Auto) (0.0 - 2.0 %) 0.4 Neut # (Auto) (2.0 - 7.6 x10 3/uL) 6.38 Lymph # (Auto) (1.0 - 3.8 x10 3/uL) 1.49 [place] # (Auto) (0.1 - 0.8 x10 3/uL) [...] (Auto) (14.0 - 32.0 %) 13.7 L [place] % (Auto) (4.8 - 9.0 %) 7.2 Eos % (Auto) (0.3 - 3.7 %) 4.8 H Baso % (Auto) (0.0 - 2.0 %) 0.3 Neut # (Auto) (2.0 - 7.6 x10 3/uL) 6.64 Lymph # (Auto) (1.0 - 3.8 x10 3/uL) 1.24 [place] # (Auto) (0.1 - 0.8 x10 3/uL) [...] By: [id number] - Roger Parra M.D.[facility] 09/05 1146 Report Impression [...] insulin dose.PT and OT. at 1752 RPT #:[id number] OF REPORTPRProgress cted3550-52-05H95:52:00G.GXVM92779888-8138O VAvailable for patient okleUCZXRKZCOZECDT8269-58-24F61:53:20 [facility] 2022-09-10 15:59:00 [id number]xDQS Millie aK5tKi7v1LMgQLdFS4JPz5/jty8RMQbKt1040-78-04 T15:59:00 [facility] ([facility])Infectious Dis. Progress NoteREPORT#:[id number] REPORT STATUS: SignedDATE:09/10/22 TIME: 1559 PATIENT: KARMA ROWLAND UNIT #: [id number]#: [id number] [address] AGE: 56 SEX: M ATTEND: Mj Vences [facility] AUTHOR: Merry Wolff MD * ALL edits [...] Pulse Resp B/P B/P Mean Pulse Ox SyA372/-09/10 97.3-98.2 80-84 17-18 146-165/71-83 96.5-110.6 95-97 Last [...] right BKA Left foot wound +dressing in placeNeuro/CONTRACT RUNNER: alert, oriented X 3 Considered stroke alert: [...] - 2.40 mg/dL) 1.89 Laboratory Tests 09/10 0564 Hematology WBC (4.5 - 11.0 x10 3/uL) [...] % (Auto) (14.0 - 32.0 %) 15.5 [place] % (Auto) (4.8 - 9.0 %) 8.5 Eos % (Auto) (0.3 - 3.7 %) 5.5 H Baso % (Auto) (0.0 - 2.0 %) 0.4 Neut # (Auto) (2.0 - 7.6 x10 3/uL) 5.94 Lymph # (Auto) (1.0 - 3.8 x10 3/uL) 1.33 [place] # (Auto) (0.1 - 0.8 x10 3/uL) [...] Laboratory Tests: 09/10 09/10 09/10 09/10 1430 1007 0576 0516 Chemistry Sodium (134 - 147 mEq/L) 135 [...] % (Auto) (14.0 - 32.0 %) 15.5 [place] % (Auto) (4.8 - 9.0 %) 8.5 Eos % (Auto) (0.3 - 3.7 %) 5.5 H Baso % (Auto) (0.0 - 2.0 %) 0.4 Neut # (Auto) (2.0 - 7.6 x10 3/uL) 5.94 Lymph # (Auto) (1.0 - 3.8 x10 3/uL) 1.33 [place] # (Auto) (0.1 - 0.8 x10 3/uL) [...] 15.4 18 18 09/08 09/08 0524 0500 2039 1954 Chemistry Sodium (134 - 147 mEq/L) 136 [...] % (Auto) (14.0 - 32.0 %) 16.1 [place] % (Auto) (4.8 - 9.0 %) 9.2 H Eos % (Auto) (0.3 - 3.7 %) 4.7 H Baso % (Auto) (0.0 - 2.0 %) 0.4 Neut # (Auto) (2.0 - 7.6 x10 3/uL) 6.38 Lymph # (Auto) (1.0 - 3.8 x10 3/uL) 1.49 [place] # (Auto) (0.1 - 0.8 x10 3/uL) [...] Sodium 125 MG DAILY 09/09 09 AC 09/10 Gluconate Complex IV 09/16 0959 [...] 10/05 1244 Furosemide 20 MG DAILY 09/05 899 AC 09/10 PO 10/05 0859 0840 Sodium [...] Sodium 40 MG Q12HR 09/05 09 AC 09/10 IV 10/05 0859 0841 Polyethylene [...] Lidocaine 1 PATCH DAILY 09/03 899 AC 09/10 TOPICAL 10/03 0859 0840 Skin [...] 0859 0838 Multivitamins 1 TAB DAILY 09/09 0900 AC 09/10 PO 10/09 0859 0838 Dose Instructions:(1)Sterile Water: DRESSING CHANGE Recent Impressions:ULTRASOUND - US RETROPERITONEAL COM 09/10 [...] Jill Quintero on 09/10/22 at 1604 at 1739 RPT #:[id number] OF REPORTPRProgress wnbw6543-82-00F93:59:00G.ZVFU72122442-4925Q VAvailable for patient mfsxHXORARYKVRFXQV2358-01-99P19:41:57 [facility] 2022-09-10 15:50:00 [id number]+GE5 p9V Xyub+rkcUCsraIeK92wIR1ij3RxBHuBxv5302-80-49 T15:50:00 [facility] Pro[facility]-VancomycinREPORT#:[id number] REPORT STATUS: SignedDATE:09/10/22 TIME: 1550 PATIENT: KARMA ROWLAND UNIT #: [id number]#: [id number] [address] AGE: 56 SEX: M ATTEND: Mj Vences [facility] AUTHOR: Joselyn Stock [facility] * ALL edits or amendments must be made on the electronic/computer document * Vancomycin Vancomycin Medication TherapyGoal: Random 15-20 mcg/mLIndication for treatment:OM and MRSA BacteremiaVS and I/O:Vital SignsDate Temp Pulse Resp B/P B/P Mean Pulse Ox LcY138/-09/10 97.3-98.8 79-98 10-20 131-177/64-90 87.1-118.8 94-99 72 [...] random level 09/11 @1500 at 1553 RPT #:[id number] OF REPORTPRProgress xqpy2375-05-43K15:50:00G.ZCLQ42250814-6230K VAvailable for patient uyweEECIXKZFDVXZJT5028-92-60E18:54:10 [facility] 2022-09-10 14:42:00 [id number]GCaSsXBF Dz1 YU2RzA4TZDW44V+S/+Eaq54giZ2wH7KIW7037-84-66 T14:42:00 [facility] Progress NoteREPORT#:[id number] REPORT STATUS: SignedDATE:09/10/22 TIME: 1442 PATIENT: KARMA ROWLAND UNIT #: [id number]#: [id number] ROOM/BED: 537[address]1DOB: [birth year] AGE: 56 SEX: M ATTEND: Mj Vences [facility] AUTHOR: Kassie Avitia MD * ALL edits [...] hospitalist, infectious disease, podiatry at 1444 RPT #:[id number] OF REPORTPRProgress czks3401-66-16H01:42:00G.SKAK38782797-9218V VAvailable for patient ykgeVGNDOYNHFEKCTL4650-95-94G21:44:47 [facility] 2022-09-10 10:50:00 [id number]6R2Wym tCg XmWj3qabuXy3jaNEEONjFvSzHuhDvNj8c8729-35-79 T10:50:00 [facility] Progress NoteREPORT#:[id number] REPORT STATUS: SignedDATE:09/10/22 TIME: 1050 PATIENT: KARMA ROWLAND UNIT #: [id number]#: [id number] [address] [birth year] AGE: 56 SEX: M ATTEND: Mj Vences [facility] AUTHOR: Wilbert Ramires MD * ALL edits [...] capillary refillMusculoskeletal: normal inspection, painless range of motionNeuro/CONTRACT RUNNER: alert, oriented X 3, 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 Considered stroke alert: noSkin: dry, intactPsychiatry: normal affect, normal judgment/insight ResultsFindings/Data:Laboratory Tests 09/10 09/10 09/10 09/09 09/09 1007 0545 2441 1911 1606 Chemistry Sodium (134 - 147 [...] % (Auto) (14.0 - 32.0 %) 15.5 [place] % (Auto) (4.8 - 9.0 %) 8.5 Eos % (Auto) (0.3 - 3.7 %) 5.5 H Baso % (Auto) (0.0 - 2.0 %) 0.4 Neut # (Auto) (2.0 - 7.6 x10 3/uL) 5.94 Lymph # (Auto) (1.0 - 3.8 x10 3/uL) 1.33 [place] # (Auto) (0.1 - 0.8 x10 3/uL) [...] at target. increase Coreg at 1130 RPT #:[id number] OF REPORTPRProgress jpcz7829-65-32A16:50:00G.BARZ35453597-4411Z VAvailable for patient qgqrKNPZWKFIUTWJVJ1256-27-64K04:30:38 [facility] 2022-09-10 10:36:00 [id number]/6LX8c0lGOhC8lqdYKc yKw MNckyiwarpGVnZr29Pc1reXMIi65P3g+J7248-73-97 T10:36:00 [facility] (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 Will follow. at 1810 at 0823 [facility] #:[id number] OF REPORTPRProgress dryl5652-16-22E52:36:00G.ZCOM57494014-0755X VAvailable for patient paewDIRLFNPDQEKXMC8169-03-47N99:10:46 [facility] 2022-09-10 07:33:00 R15902632514s+1FpPTFB2321RzxxcKyew38c+vd 41l tB8JyvG9zn833/RC0JbiICDVUbV/yeHxn8920-18-08 T07:33:00 [facility] ([facility])Nephrology Progress NoteREPORT#:[id number] REPORT STATUS: SignedDATE:09/10/22 TIME: 732 PATIENT: KARMA ROWLAND UNIT #: [id number]#: [id number] [address] AGE: 56 SEX: M ATTEND: Mj Vences [facility] AUTHOR: Barrera Ramírez MD * ALL edits [...] pitting edema, non-tenderMusculoskeletal: no CVA tenderness, no tendernessNeuro/CONTRACT RUNNER: alert, 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 Considered stroke alert: noSkin: dry, intact ResultsFindings/Data:Laboratory Tests 09/10 09/09 09/09 09/09 09/09 0541 1911 1606 1526 1049 Chemistry POC Glucose (70 - 110 MG/DL) 154 H 102 109 30 L 90 09/09 09/09 09/08 09/08 0524 0500 1955 2538 Chemistry Sodium (134 - 147 mEq/L) 136 [...] (14.0 - 32.0 %) 16.1 13.7 L [place] % (Auto) (4.8 - 9.0 %) 9.2 H 7.2 Eos % (Auto) (0.3 - 3.7 %) 4.7 H 4.8 H Baso % (Auto) (0.0 - 2.0 %) 0.4 0.3 Neut # (Auto) (2.0 - 7.6 x10 3/uL) 6.38 6.64 Lymph # (Auto) (1.0 - 3.8 x10 3/uL) 1.49 1.24 [place] # (Auto) (0.1 - 0.8 x10 3/uL) [...] cardiology, endocrinology, hospitalist, infectious disease, podiatry at 0923 RPT #:[id number] OF REPORTPRProgress ohlq6915-55-17R25:33:00G.TUSG92295445-9766D VAvailable for patient lfdsSNNPBMNKLYHRKX9399-36-04I47:34:20 [facility] 2022-09-10 06:03:00 [id number]zIXM DML EPgLCPF27GgxltXHkF5dyMMWMWEHkzkeJ1091-18-76 T06:03:00 [facility] ([facility])Rehab Progress NoteREPORT#:[id number] REPORT STATUS: SignedDATE:09/10/22 TIME: 06 PATIENT: KARMA ROWLAND UNIT #: [id number]#: [id number] [address] AGE: 56 SEX: M ATTEND: Mj Vences MDADM AUTHOR: Guero Candelaria * ALL edits or amendments must be made on the electronic/computer document * SubjectiveChief complaint:Rehab follow-upDoing better+ BMEating 75-100%Denies [place]/N/V/D/CP14 systems reviewed and neg. except that above.History [...] RAILS, WORKED ON SQUAT PIVOT TRANSFERS TO WC WITH MIN A, MAXINE TECH ON ,RLE STUMP JOAN WRAPPED, EDUCATED SPOUSE ON FIGURE 8. PATIENT WORKED ON WC MOB WITH SBA FOR SAFETY , IN THE GYM PATIENT OWRKED ON SIT TO STANDS WITH MOD A, CUES TO PUSHOFF FROM WC ARMREST. PATIENT WORKED ON DYNAMIC BALANCE EX, [...] homans neg), BUE 5/5, LLE4/5, R hip 3-Neuro/CONTRACT RUNNER: alert, oriented X 3, CNII-XII intact ResultsFindings/Data:Laboratory [...] diastolic dysfunction4: JIMENA negative for vegetationMRSA OF NARES4:s/p EGD [...] H-no evidence of gross bleeding-discussed with Dr. TrinidadSvzdimsg-Zadxdrpmwicz-sehzzgwgc rhyguxhu-SEL-kfsgow-CW Senokot and MiraLAX, DSP-Right IDX-tksqxlf-tgiqfdgp resolved, dressings changed xwint-hoeoosm-lackigwn ODD-RMHT-QJVR OF NARES on Bactroban protocol-LLE edema-venous Doppler with complex heterogeneous hypoechoic fluid collectionin the left calf region measuring 8.4, 2.8, 2.5 cm suggestive of hematoma. HoldLasix x3 days. Joan wrap calf-Generalized edema-some shortness of breath and abdominal distention-cardiology gave a dose of IV Lasix-monitor urine output, daily weights-Chest x-ray with minimal basilar pulmonary zhifblfwa-Ybuerw-rdzaiiqqnd 8.5, transfused 2 units of PRBC on [...] with interdisciplinary treatment plan. at 1500 RPT #:[id number] OF REPORTPRProgress igdk8762-12-13U90:03:00G.EVXT74317679-6744Z VAvailable for patient gwwjOXWLBADQFWHDBB0212-68-85M62:01:33 [facility] 2022-09-10 05:42:00 C001637776639Q5rsnTZ5TmLAZE8KqUSXwHyJFrf QpA RFO6KUMrKZxMm3gpomozgiZ109p6kKiWZ5356-96-46 T05:42:00 [facility] (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 Chart/MAR reviewed. Patient states the pain is not controlled with the use of the [place]. He still requires the IV dilaudid. I [...] Mean Pulse Ox FiO2 09/09 97.3-98.2 79-88 -18 140-168/71-83 93.7-110.6 94-98 Last Documented: Result Date Time Pulse Ox 97 09/09 2333 B/P 146/73 09/09 2333 B/P Mean 97.2 09/09 2333 O2 Delivery Room air 09/09 2333 Temp 97.5 09/09 2333 Pulse 82 09/09 2333 Resp 17 09/09 2333 O2 Flow Rate 2 09/08 1322 24 [...] bowel soundsExtremities: moves all, no edema, pedal pulsesNeuro/CONTRACT RUNNER: 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, no sensory deficits, CNII-XII [...] to comorbid conditions-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 every 4 hours [...] whom agrees. Thank you for the consultation. 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:-database searched, no information found Kingsley Ng 09/28/222001:Attestations Physician AttestationAgree w/findings plan:The patient was seen and examined by Charlie Quiroga. I personally developed thecare plan, which was continued by the mid-level provider. I was immediately available. at 1607 at 2001 RPT #:[id number] OF REPORTPRProgress jnpp8026-62-14G67:42:00G.UGXL64757774-9660X VAvailable for patient rzwcITCPSLTRKTDBPL1415-82-17Z17:07:36 [facility] 2022-09-09 16:51:00 [id number]+u/Vmi012 zpR SS/gDj9KC6mG+GTY5ASB7IiM3wfzka4Um7705-39-99 T16:51:00 [facility])Endocrinology Progress NoteREPORT#:[id number] REPORT STATUS: SignedDATE:09/09/22 TIME: 1650 PATIENT: KARMA ROWLAND UNIT #: [id number]#: [id number] ROOM/BED: [facility] [place]DOB: [birth year] AGE: 56 SEX: M ATTEND: Mj Vences [facility] AUTHOR: Braxton Chapin MD * ALL edits [...] % (Auto) (14.0 - 32.0 %) 16.1 [place] % (Auto) (4.8 - 9.0 %) 9.2 H Eos % (Auto) (0.3 - 3.7 %) 4.7 H Baso % (Auto) (0.0 - 2.0 %) 0.4 Neut # (Auto) (2.0 - 7.6 x10 3/uL) 6.38 Lymph # (Auto) (1.0 - 3.8 x10 3/uL) 1.49 [place] # (Auto) (0.1 - 0.8 x10 3/uL) [...] (Auto) (14.0 - 32.0 %) 13.7 L [place] % (Auto) (4.8 - 9.0 %) 7.2 Eos % (Auto) (0.3 - 3.7 %) 4.8 H Baso % (Auto) (0.0 - 2.0 %) 0.3 Neut # (Auto) (2.0 - 7.6 x10 3/uL) 6.64 Lymph # (Auto) (1.0 - 3.8 x10 3/uL) 1.24 [place] # (Auto) (0.1 - 0.8 x10 3/uL) [...] By: [id number] - Roger Parra M.D.[facility] 09/05 1146 Report Impression [...] insulin dose.PT and OT. at 1652 RPT #:[id number] OF REPORTPRProgress cdnc6564-22-19D26:51:00G.EPRI05779656-7120C VAvailable for patient lvbqSATVWUILTFZGJM3532-90-13G49:52:43 [facility] 2022-09-09 15:26:00 [id number]+Qgr+89hYehe COT 98mD4Myo8tkkfX0iBle31lUzQHBehLMVW1661-88-32 T15:26:00 [facility]Re[facility] Team ConferenceREPORT#:[id number] REPORT STATUS: SignedDATE:09/09/22 TIME: 1526 PATIENT: KARMA ROWLAND UNIT #: [id number]#: [id number] [address] AGE: 56 SEX: M ATTEND: Mj Vences AUTHOR: Mj Vences MD * ALL edits or amendments must be made on the electronic/computer document * Rehabilitation Team Conference Weekly Team ConferenceTeam conf information:Date of conference: 09/09/22Conference type: InitialConference scribe: Columba Drew PTA INTERDISCIPLINARY TEAM MEETING PARTICIPANTS: TITLE NAME MD SELENA Butts, SELENA PT Anthony Ro, PT OT Rudi Yancey OT CM/TRINO Burger NO ATTENDEE [facility] Amanda Lai, TERRAZZO INSTALLER Staff (8) NO ATTENDEE Staff (9) NO [...] Twelve steps discharge goal: Med cond/safety concern [place] 150 feet discharge goal: Independent (6) Goal [...] and/or community resource needs: Family/Caregiver training days: [place] day (DATE): 09/18/22Expected discharge destination: HomeAnticipated services [...] stay criteriaSee my note at 1526 RPT #:[id number] OF REPORTCLClinical tyaw8312-38-57N18:26:00G.FSMG67401705-4285G VAvailable for patient bznkTRXAPHVPELOHYG2838-36-55Q15:27:31 [facility] 2022-09-09 12:13:00 [id number]/pcx5Ds+NOBCE7kkWnNmPoHIwVi1 +Dp Tt7dZHcB5jhDpV/nC/hSRaqkkm/s101Wh8567-18-18 T12:13:00 [facility])Podiatry Progress NoteREPORT#:[id number] REPORT STATUS: SignedDATE:09/09/22 TIME: 1213 PATIENT: KARMA ROWLAND UNIT #: [id number]#: [id number] [address] [birth year] AGE: 56 SEX: M ATTEND: [facility] AUTHOR: Liam Pedersen DPM * ALL edits [...] O:24 hour I O ending at 0700: 18 0700 09/08 1900 Intake Total 250.00 Output [...] % (Auto) (14.0 - 32.0 %) 16.1 [place] % (Auto) (4.8 - 9.0 %) 9.2 H Eos % (Auto) (0.3 - 3.7 %) 4.7 H Baso % (Auto) (0.0 - 2.0 %) 0.4 Neut # (Auto) (2.0 - 7.6 x10 3/uL) 6.38 Lymph # (Auto) (1.0 - 3.8 x10 3/uL) 1.49 [place] # (Auto) (0.1 - 0.8 x10 3/uL) [...] hospitalist, infectious disease, podiatry at 1214 RPT #:[id number] OF REPORTPRProgress nhfy4843-39-73I23:13:00G.QAGN90485686-6973D VAvailable for patient rkynUKZTIYKOAZFXBM9412-14-91O83:15:09 [facility] 2022-09-09 11:45:00 [id number]SU5d ZgO K4VPX3HcS3cMWukm22C4e0LZRovCDg2TI8850-66-49 T11:45:00 [facility] ([facility])Infectious Dis. Progress NoteREPORT#:[id number] REPORT STATUS: SignedDATE:09/09/22 TIME: 1145 PATIENT: KARMA ROWLAND UNIT #: [id number]#: [id number] [address] [birth year] AGE: 56 SEX: M ATTEND: Mj Vences [facility] AUTHOR: Merry Wolff MD * ALL edits [...] Pulse Resp B/P B/P Mean Pulse Ox NqR889/17-09/09 97.7-98.2 80-91 - 131-170/64-86 87.1-106.2 94-99 Last Documented: Result Date [...] right BKA Left foot wound +dressing in placeNeuro/CONTRACT RUNNER: alert, oriented X 3 Considered stroke alert: [...] % (Auto) (14.0 - 32.0 %) 16.1 [place] % (Auto) (4.8 - 9.0 %) 9.2 H Eos % (Auto) (0.3 - 3.7 %) 4.7 H Baso % (Auto) (0.0 - 2.0 %) 0.4 Neut # (Auto) (2.0 - 7.6 x10 3/uL) 6.38 Lymph # (Auto) (1.0 - 3.8 x10 3/uL) 1.49 [place] # (Auto) (0.1 - 0.8 x10 3/uL) [...] 09/09 09/09 09/08 09/08 1049 0524 0500 5 1828Chemistry Sodium (134 - 147 mEq/L) 136 [...] % (Auto) (14.0 - 32.0 %) 16.1 [place] % (Auto) (4.8 - 9.0 %) 9.2 H Eos % (Auto) (0.3 - 3.7 %) 4.7 H Baso % (Auto) (0.0 - 2.0 %) 0.4 Neut # (Auto) (2.0 - 7.6 x10 3/uL) 6.38 Lymph # (Auto) (1.0 - 3.8 x10 3/uL) 1.49 [place] # (Auto) (0.1 - 0.8 x10 3/uL) [...] (Auto) (14.0 - 32.0 %) 13.7 L [place] % (Auto) (4.8 - 9.0 %) 7.2 Eos % (Auto) (0.3 - 3.7 %) 4.8 H Baso % (Auto) (0.0 - 2.0 %) 0.3 Neut # (Auto) (2.0 - 7.6 x10 3/uL) 6.64 Lymph # (Auto) (1.0 - 3.8 x10 3/uL) 1.24 [place] # (Auto) (0.1 - 0.8 x10 3/uL) [...] BEDTIME 09/04 2100 AC 09/08 PO 10/04 2058 204 Hydrocodone Bitart/ 1 TAB Q4H PRN PRN [...] 0741 Polyethylene Glycol 17 GM DAILY 09/05 0900 [...] 0744 Zinc Oxide 1 APPLIC DAILY 09/04 0900 AC 09/09 TOPICAL 10/04 0859 0744 Vitamins Sig/Jan Start time Last Medication Dose Route Stop Time Status Admin Folic Acid 2 MG DAILY 09/09 0900 AC 09/09 PO 10/09 0859 0741 Multivitamins 1 TAB DAILY 09/09 0900 AC 09/09 PO 10/09 0859 0741 Dose [...] on 09/09/22 at 1145 at 2050 RPT #:[id number] OF REPORTPRProgress pqgx5821-54-26S75:45:00G.HMJM25345616-8069O VAvailable for patient dxjuFCWVKITUVMZIJM3969-36-83D69:50:51 [facility] 2022-09-09 11:38:00 [id number]ZCmd 5L5 uM8VrcWsbNQNzeEtZVj02QiWM+2IpzQa78628-31-71 T11:38:00 [facility] NoteRE[facility]#:[id number] REPORT STATUS: SignedDATE:09/09/22 TIME: 1138 PATIENT: KARMA ROWLAND UNIT #: [id number]#: [id number] [address] [birth year] AGE: 56 SEX: M ATTEND: Mj Vences [facility] AUTHOR: Kassie Avitia MD * ALL edits [...] hospitalist, infectious disease, podiatry at 1140 RPT #:[id number] OF REPORTPRProgress tmau9601-71-18E39:38:00G.YMXM51705214-4339Q VAvailable for patient jrxiTEYHGMSCIHIYVA7404-13-72N78:40:29 [facility] 2022-09-09 10:43:00 [id number]7UQF +17 EBwu1o7/zzogRT22WcBNIcPfoDEtWQ5DF9977-64-91 T10:43:00 [facility] ([facility])Pharmacy Prog.Note-VancomycinREPORT#:[id number] REPORT STATUS: SignedDATE:09/09/22 TIME: 1043 PATIENT: KARMA ROWLAND UNIT #: [id number]#: [id number] ROOM/BED: [facility]DOB: [birth year] AGE: 56 SEX: M ATTEND: Mj Vences [facility] AUTHOR: Joselyn Stock [facility] * ALL edits or amendments [...] 1900 09/07 09/06 0700 1900Intake 250.00 2000TotalOutput 461 303 9650 1000TotalBalance -850 250.00 1400 -1500 -1000 Intake, IV 250.00Intake, 2000OralNumber 1 2BowelMovementsNumber 0 0 0 0IncontinentVoidsNumber 0 0 0 0VoidsOutput, 742 305 9924 1000Urine 72 Hour I O Total 09/09 0700 09/08 0700 09/07 0700 Intake Total 250.00 2000 Output Total 032 205 6847 Balance -600.00 1400 -2500 Labs:Laboratory Tests: 09/08 [...] tomorrow based on level at 1526 RPT #:[id number] OF REPORTPRProgress fvix6006-10-76Z38:43:00G.DNGW32340594-0165N VAvailable for patient fubyGREPLLQIKDFUFN5092-19-18F95:27:31 [facility] 2022-09-09 10:42:00 [id number]J00O EWP f7+gzsbZ7xKyTI4xRILLpbumBSSkkM1v20826-28-20 T10:42:00 [facility] Progress NoteREPORT#:[id number] REPORT STATUS: SignedDATE:09/09/22 TIME: 1042 PATIENT: KARMA ROWLAND UNIT #: [id number]#: [id number] [address] AGE: 56 SEX: M ATTEND: [facility]j Vences [facility] AUTHOR: Mj Vences MD * ALL edits or amendments must be made on the electronic/computer document * SubjectiveChief complaint:Rehabilitation follow-upPatient doing well todayWorking with therapyDoing better+ BMEating 75-100%Denies CARRASCO/N/V/D/CP14 systems reviewed and neg. except that above.History [...] homans neg), BUE 5/5, LLE4/5, R hip 3-Neuro/CONTRACT RUNNER: alert, oriented X 3, CNII-XII intact ResultsFindings/Data:Laboratory [...] % (Auto) (14.0 - 32.0 %) 16.1 [place] % (Auto) (4.8 - 9.0 %) 9.2 H Eos % (Auto) (0.3 - 3.7 %) 4.7 H Baso % (Auto) (0.0 - 2.0 %) 0.4 Neut # (Auto) (2.0 - 7.6 x10 3/uL) 6.38 Lymph # (Auto) (1.0 - 3.8 x10 3/uL) 1.49 [place] # (Auto) (0.1 - 0.8 x10 3/uL) [...] H-no evidence of gross bleeding-discussed with Dr. TrinidadPhsnxajn-Iobdhbvziqxt-gmfiwztve cheuherg-UZU-bxiihi-CW Senokot and MiraLAX, DSP-Right RVA-etbtdbd-pdczqsic resolved, dressings changed exwez-tadvlea-dnxhcfxg EZE-PNIS-YEZG OF NARES on Bactroban protocol-LLE edema-venous Doppler with complex heterogeneous hypoechoic fluid collectionin the left calf region measuring 8.4, 2.8, 2.5 cm suggestive of hematoma. HoldLasix x3 days. Joan wrap calf-Generalized edema-some shortness of breath and abdominal distention-cardiology gave a dose of IV Lasix-monitor urine output, daily weights-Chest x-ray with minimal basilar pulmonary hifkisrrn-Udewtv-bnrxquwrhu 8.5, transfused 2 units of PRBC on [...] Agree with interdisciplinary treatment plan. at 1526 RPT #:[id number] OF REPORTPRProgress gacl0152-11-89C69:42:00G.KLQK42702610-4730U VAvailable for patient sqskQQDQQYZMHUQQVA9276-25-44N20:26:51 [facility] 2022-09-09 09:56:00 [id number]+JKL9/89gxXNv2zfFTqQ0xP7NZaV 2oA bfhO8L+l9Eq5VCu8MeoCExBRrKcJP1yN88206-58-48 T09:56:00 [facility])Cardiology Progress NoteREPORT#:[id number] REPORT STATUS: SignedDATE:09/09/22 TIME: 09 PATIENT: KARMA ROWLAND UNIT #: [id number]#: [id number] [address] [birth year] AGE: 56 SEX: M ATTEND: Mj Vences [facility] AUTHOR: Rohit Benitez MACHINIST APPRENTICE WOOD * ALL edits or amendments must be [...] soft, non-tenderLower extremity: LE assessment: edema, normal temperatureNeuro/CONTRACT RUNNER: alert, oriented X 3 Considered stroke alert: [...] % (Auto) (14.0 - 32.0 %) 16.1 [place] % (Auto) (4.8 - 9.0 %) 9.2 H Eos % (Auto) (0.3 - 3.7 %) 4.7 H Baso % (Auto) (0.0 - 2.0 %) 0.4 Neut # (Auto) (2.0 - 7.6 x10 3/uL) 6.38 Lymph # (Auto) (1.0 - 3.8 x10 3/uL) 1.49 [place] # (Auto) (0.1 - 0.8 x10 3/uL) [...] We will follow. at 1704 at 2224 RPT #:[id number] OF REPORTPRProgress iqlm1849-58-91E86:56:00G.PLYW76712180-0421Q VAvailable for patient jhgqRRCIIWTPUMNLYC6201-83-47P25:04:35 [facility] 2022-09-09 09:38:00 [id number]+cq0UXwUJpjhYL GLy eRkvcYu0RGTGaqqz+pO8HvjqZXXrq4Ip72498-66-70 T09:38:00 [facility]Hospital[facility] Progress NoteREPORT#:[id number] REPORT STATUS: SignedDATE:09/09/22 TIME: 09 PATIENT: KARMA ROWLAND UNIT #: [id number]#: [id number] [address] [birth year] AGE: 56 SEX: M ATTEND: [...] 0021 97.7 87 16 133/64 87.1 96 04/17 2004 97.9 91 15 150/73 98.9 96 [...] capillary refillMusculoskeletal: normal inspection, painless range of motionNeuro/CONTRACT RUNNER: alert, oriented X 3, 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 Considered [...] % (Auto) (14.0 - 32.0 %) 16.1 [place] % (Auto) (4.8 - 9.0 %) 9.2 H Eos % (Auto) (0.3 - 3.7 %) 4.7 H Baso % (Auto) (0.0 - 2.0 %) 0.4 Neut # (Auto) (2.0 - 7.6 x10 3/uL) 6.38 Lymph # (Auto) (1.0 - 3.8 x10 3/uL) 1.49 [place] # (Auto) (0.1 - 0.8 x10 3/uL) [...] noted. watch HgbIV iron at 1130 RPT #:[id number] OF REPORTPRProgress nhhl1880-76-31N86:38:00G.YWMC22808891-9903R VAvailable for patient mnakJQAWLCDWZULTIX9597-85-26N08:30:49 [facility] 2022-09-09 05:32:00 [id number]orcnH7 qx5 By4b1NIDYR7uKpGmnPvLoQA4F+tj/iu074584-45-98 T05:32:00 [facility] ([facility])Pain Management Progress NoteREPORT#:[id number] REPORT STATUS: SignedDATE:09/09/22 TIME: 05 PATIENT: KARMA ROWLAND UNIT #: [id number]#: [id number] [address] AGE: 56 SEX: M ATTEND: Mj Vences [facility] AUTHOR: Charlie Quiroga MACHINIST APPRENTICE WOOD * ALL edits or amendments must be [...] Pulse Resp B/P B/P Mean Pulse Ox VdS587/17-09/09 97.7-98.2 80-92 10-20 131-170/64-86 87.1-106.2 95-99 Last [...] bowel soundsExtremities: moves all, no edema, pedal pulsesNeuro/CONTRACT RUNNER: 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, no sensory deficits, CNII-XII grossly intact Considered stroke alert: noSkin: dry, normal colorPsychiatry: normal affect ResultsFindings/data:Laboratory Tests: 09/08 09/08 09/08 09/08 09/08 1955 [...] (Auto) (14.0 - 32.0 %) 13.7 L [place] % (Auto) (4.8 - 9.0 %) 7.2 Eos % (Auto) (0.3 - 3.7 %) 4.8 H Baso % (Auto) (0.0 - 2.0 %) 0.3 Neut # (Auto) (2.0 - 7.6 x10 3/uL) 6.64 Lymph # (Auto) (1.0 - 3.8 x10 3/uL) 1.24 [place] # (Auto) (0.1 - 0.8 x10 3/uL) [...] 6 hours as needed pain scale 1 3-[place] 10/325 1 tablet p.o. every 4 hours [...] whom agrees. Thank you for the consultation. 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:-database searched, no information found Kingsley Ng 09/28/221927:Attestations Physician AttestationAgree w/findings plan:The patient was seen and examined by Charlie Quiroga. I personally developed thecare plan, which was continued by the mid-level provider. I was immediately available. at 1617 at 1929 RPT #:[id number] OF REPORTPRProgress hezb1067-66-79N32:32:00G.WERK02860939-5754H VAvailable for patient uykfXQIRIPCEKTWMYC3527-93-61M54:18:06 [facility] 2022-09-08 20:33:00 [id number]kcqR /ue 5jsBPbl+GA16J5ZcDB8F4y78o4nE+ONHw2650-88-63 T20:33:00 [facility] HospitalPodiatry Progress NoteREPORT#:[id number] REPORT STATUS: SignedDATE:09/08/22 TIME: 2032 PATIENT: KARMA ROWLAND UNIT #: [id number]#: [id number] [address] AGE: 56 SEX: M ATTEND: Mj Vences [facility] AUTHOR: Liam Pedersen DPM * ALL edits [...] Location: DTI dorsal left midfoot ResultsFindings/Data:Laboratory Tests: 09/0817 1955 1828 1611 1318 1045Chemistry POC Glucose [...] (Auto) (14.0 - 32.0 %) 13.7 L [place] % (Auto) (4.8 - 9.0 %) 7.2 Eos % (Auto) (0.3 - 3.7 %) 4.8 H Baso % (Auto) (0.0 - 2.0 %) 0.3 Neut # (Auto) (2.0 - 7.6 x10 3/uL) 6.64 Lymph # (Auto) (1.0 - 3.8 x10 3/uL) 1.24 [place] # (Auto) (0.1 - 0.8 x10 3/uL) [...] (0.0 - 0.1 x10 3/uL) 0.00 09/07 2109 Chemistry POC Glucose (70 - 110 MG/DL) 127 H Diagnosis, Assessment PlanFree Text A P:DM with neuropathyearly decub ulcer left heelOA/edema left ankleDTI dorsal left midfoot zinc oxide to foot and heelfoam to heelon IV abxoffloading bootace wraps to ankle, only when OOB with therapy. Consultants: cardiology, endocrinology, hospitalist, infectious disease, podiatry at 7865 RPT #:[id number] OF REPORTPRProgress pwru0641-58-56A58:33:00G.PONF19944926-4487Q VAvailable for patient texqLHYUDYNMENVZND7835-56-12A42:36:11 [facility] 2022-09-08 17:06:00 [id number]+wgNPCcQ8F6c8Ee TRo 48Zfn788dUGPX+D6fsuk3nziwc13RpGup7712-37-25 T17:06:00 [facility] ([facility])Nephrology Consultation NoteREPORT#:[id number] REPORT STATUS: SignedDATE:09/08/22 TIME: 1706 PATIENT: KARMA ROWLAND UNIT #: [id number]#: [id number] [address] AGE: 56 SEX: M ATTEND: Mj Vences [facility] AUTHOR: Barrera Ramírez MD * ALL edits [...] pitting edema, non-tenderMusculoskeletal: no CVA tenderness, no tendernessNeuro/CONTRACT RUNNER: alert, 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 Considered stroke alert: noSkin: [...] (Auto) (14.0 - 32.0 %) 13.7 L [place] % (Auto) (4.8 - 9.0 %) 7.2 Eos % (Auto) (0.3 - 3.7 %) 4.8 H Baso % (Auto) (0.0 - 2.0 %) 0.3 Neut # (Auto) (2.0 - 7.6 x10 3/uL) 6.64 Lymph # (Auto) (1.0 - 3.8 x10 3/uL) 1.24 [place] # (Auto) (0.1 - 0.8 x10 3/uL) [...] (Auto) (14.0 - 32.0 %) 13.7 L [place] % (Auto) (4.8 - 9.0 %) 7.2 Eos % (Auto) (0.3 - 3.7 %) 4.8 H Baso % (Auto) (0.0 - 2.0 %) 0.3 Neut # (Auto) (2.0 - 7.6 x10 3/uL) 6.64 Lymph # (Auto) (1.0 - 3.8 x10 3/uL) 1.24 [place] # (Auto) (0.1 - 0.8 x10 3/uL) [...] ratioHypomagnesemia: We will supplement at 0939 RPT #:[id number] OF REPORTNZPpyduiscdfsa0961-26-01P54:06:00G .JJJN92378327-2717NGTepnmvlch for patient auwrNMTHOPLNPEVDPV1270-78-74D70:40:21 [facility] 2022-09-08 16:52:00 [id number]bm xv5 PFPhtLyYXatCSUWXh4zQxK/LtV759QqOh8541-91-33 T16:52:00 [facility] ([facility])Endocrinology Progress NoteREPORT#:[id number] REPORT STATUS: SignedDATE:09/08/22 TIME: 1651 PATIENT: KARMA ROWLAND UNIT #: [id number]#: [id number] [address] AGE: 56 SEX: M ATTEND: [...] (Auto) (14.0 - 32.0 %) 13.7 L [place] % (Auto) (4.8 - 9.0 %) 7.2 Eos % (Auto) (0.3 - 3.7 %) 4.8 H Baso % (Auto) (0.0 - 2.0 %) 0.3 Neut # (Auto) (2.0 - 7.6 x10 3/uL) 6.64 Lymph # (Auto) (1.0 - 3.8 x10 3/uL) 1.24 [place] # (Auto) (0.1 - 0.8 x10 3/uL) [...] 12.8 09/04 09/04 09/03 09/03 0721 0540 7769 1836 Chemistry POC Glucose (70 - 110 [...] Sepsis5. Prostate abscess.6. AnemiaBlood sugar 99-100 mg/dL.H/H 8.11/17.1Adjust insulin dose.PT and OT. at 1653 RPT #:[id number] OF REPORTPRProgress okjr0024-47-00S66:52:00G.QIXQ48825988-4926O VAvailable for patient kfevRVJPJPXCTETWPX1261-69-91G78:53:26 [facility] 2022-09-08 13:04:00 B83975010865uUV8v8uzVLObNEWk12ohRRDK0koV Iv2 93wmQ7TTOnOc6geZNSBZL7TpDRoIZFfoZ8416-11-57 T13:04:00 [facility] Progress NoteREPORT#:[id number] REPORT STATUS: SignedDATE:09/08/22 TIME: 1304 PATIENT: KARMA ROWLAND UNIT #: [id number]#: [id number] ROOM/BED: [facility] [place]DOB: [birth year] AGE: 56 SEX: M ATTEND: Mj Vences [facility] AUTHOR: Kassie Avitia MD * ALL edits [...] hospitalist, infectious disease, podiatry at 1306 RPT #:[id number] OF REPORTPRProgress gese3514-60-60W45:04:00G.ZRCN28396240-4941X VAvailable for patient sdizFAUQTDSQRHIJSC4855-76-09H46:06:25 [facility] 2022-09-08 12:48:00 [id number]+KgANZyS58iFOOBKyHdlJO0MPyLz Dx6 6UbPzQY2/j+UYsK7+26iwEYLRIK5rZ3Lk1331-83-31 T12:48:037574-3744 [place] [address] PATIENT NAME: KARMA ROWLAND ADMIT DATE: 09/02/22ACCOUNT NO: [id number] ROOM NO: G.537 AGE: 56 REPORT TYPE: ENDOSCOPY REPORT SEX: M ADMITTING PHYSICIAN:Mj Vences MD ATTENDING PHYSICIAN:Mj Vences MD Gastroenterology Patient Name: Karma Rowland Procedure Date: 09/08/2022 12:48 PMMRN: [id number] of : 1965 Procedure: ColonoscopyIndications: Iron deficiency [...] procedure by the physician, the nurse, the shredding machine knife changer and the data entry technician. The procedure was verified in the procedure room. - Pre-procedure physical examination revealed no contraindications to sedation. - ASA Grade Assessment: III - A patient with severe systemic disease. - After reviewing the risks and benefits, the patient was deemed in satisfactory condition to undergo the procedure. - Monitored anesthesia care under the supervision of a ENGINEERING MODEL MAKER was determined to be medically necessary for [...] complications. Estimated Blood Loss: Estimated blood loss: none.Impression: - [...] for surveillance. Procedure Code(s): --- Professional --- 86116, Colonoscopy, flexible; with removal of tumor(s), polyp(s), or other lesion(s) by snare techniqueDiagnosis Code(s): --- Professional --- K64.8, Other hemorrhoids K62.1, Rectal polyp D50.0, Iron deficiency anemia secondary to blood loss (chronic) CPT copyright 2020 [employer]. All rights reserved. The codes documented in this report are preliminary and upon waxing machine operator review may be revised to meet current compliance requirements. Kassie Avitia MD09/08/2022 1:04:26 PMNumber of Addenda: 0 Note Initiated On: 09/08/2022 12:48 PMProvation {[id number]}.pdf ProVation FT PDF PATIENT NAME: KARMA ROWLAND at 1304 PATIENT NAME: KARMA ROWLAND cpatqic8343-46-87M85:04:00G.LWE80065194-708 4AVAvailable for patient qqtpJQWGGEJDBOAMHF4458-53-32U27:05:05 [facility] 2022-09-08 12:23:00 [id number]KL8W U3+ 6+STuxWubDoxk2jgqQGgIKwJYdmQ0Hjl43951-53-23 T12:23:00 [facility] ([facility])Infectious Dis. Progress NoteREPORT#:[id number] REPORT STATUS: SignedDATE:09/08/22 TIME: 1223 PATIENT: KARMA ROWLAND UNIT #: [id number]#: [id number] [address] AGE: 56 SEX: M ATTEND: AlexmannMj B [facility] AUTHOR: Merry Wolff MD * ALL edits [...] Pulse Resp B/P B/P Mean Pulse Ox DzD743/16-09/08 97.3-98.8 80-98 10-20 131-175/71-88 102.1-116.8 95-99 Last [...] right BKA Left foot wound +dressing in placeNeuro/CONTRACT RUNNER: alert, oriented X 3 Considered stroke alert: noSkin: dry, intact ResultsFindings/Data:Laboratory Tests 04/17 09/08 09/08 09/07 09/07 1033 0616 0615 [...] (Auto) (14.0 - 32.0 %) 13.7 L [place] % (Auto) (4.8 - 9.0 %) 7.2 Eos % (Auto) (0.3 - 3.7 %) 4.8 H Baso % (Auto) (0.0 - 2.0 %) 0.3 Neut # (Auto) (2.0 - 7.6 x10 3/uL) 6.64 Lymph # (Auto) (1.0 - 3.8 x10 3/uL) 1.24 [place] # (Auto) (0.1 - 0.8 x10 3/uL) [...] (Auto) (14.0 - 32.0 %) 13.7 L [place] % (Auto) (4.8 - 9.0 %) 7.2 Eos % (Auto) (0.3 - 3.7 %) 4.8 H Baso % (Auto) (0.0 - 2.0 %) 0.3 Neut # (Auto) (2.0 - 7.6 x10 3/uL) 6.64 Lymph # (Auto) (1.0 - 3.8 x10 3/uL) 1.24 [place] # (Auto) (0.1 - 0.8 x10 3/uL) [...] Q8HR 09/02 2200 DA 09/06 SUBQ 10/02 215 0531 Cardiovascular Drugs Sig/Jan Start time Last [...] AC 09/07 SUBQ 10/07 205 2233 Insulin Glargine 7 UNIT BEDTIME 09/05 2100 DC 09/06 SUBQ 10/05 2058 222 Insulin Human Lispro 0 AC HS 09/03 1630 AC 09/06 SUBQ 10/03 1629 2229 Glucagon 1 MG ASDIR PRN 09/03 1515 AC IM 10/03 1514 Insulin Human Lispro 5 UNIT AC 09/03 0730 AC 09/07 SUBQ 10/03 0729 [...] IMPRESSION: Minimal bibasilar pulmonary opacitiesImpression By: Yared - Bishop Mares M.D. Portions of this section were [...] on 09/08/22 at 1223 at 1135 RPT #:[id number] OF REPORTPRProgress jqxa5845-68-94A68:23:00G.ULGD90241114-9979Y VAvailable for patient gutxGEEYMNWYARZQPN4302-91-22W22:36:47 [facility] 2022-09-08 12:08:00 [id number]+wez6t y9C 5hSORH2GBdZ4iHhNLOEMTOuR/AtCQqWGv0995-37-57 T12:08:00 [facility] ([facility])Cardiology Progress NoteREPORT#:[id number] REPORT STATUS: SignedDATE:09/08/22 TIME: 1208 PATIENT: KARMA ROWLAND UNIT #: [id number]#: [id number] [address] AGE: 56 SEX: M ATTEND: Mj Vences [facility] AUTHOR: Rohit Benitez MACHINIST APPRENTICE WOOD * ALL edits or amendments must be [...] soft, non-tenderLower extremity: LE assessment: edema, normal temperatureNeuro/CONTRACT RUNNER: alert, oriented X 3 Considered stroke alert: noWound/incision: Location:right bkaPsychiatry: normal affect, normal judgment/insight, normal mood ResultsFindings/Data:Laboratory Tests 09/08 09/08 09/08 09/07 09/07 1033 0616 0615 2231 2110Chemistry Sodium (134 - 147 mEq/L) 135 [...] (Auto) (14.0 - 32.0 %) 13.7 L [place] % (Auto) (4.8 - 9.0 %) 7.2 Eos % (Auto) (0.3 - 3.7 %) 4.8 H Baso % (Auto) (0.0 - 2.0 %) 0.3 Neut # (Auto) (2.0 - 7.6 x10 3/uL) 6.64 Lymph # (Auto) (1.0 - 3.8 x10 3/uL) 1.24 [place] # (Auto) (0.1 - 0.8 x10 3/uL) [...] practitioner, continue current management, will follow. at 1805 at 2224 RPT #:[id number] OF REPORTPRProgress uynv0531-83-03U59:08:00G.UNCX44585522-9887G VAvailable for patient hnlhDBWSZBOHZXADZL3539-68-52M12:05:51 [facility] 2022-09-08 12:04:00 [id number]+FmNSh3pRxSz53awyE+mAkD rOL tXgOBonnySVSPsJhAvYL7s5uWDlwepm2y3537-42-21 T12:04:00 [facility] Prog.Note-VancomycinREPORT#:[id number] REPORT STATUS: SignedDATE:09/08/22 TIME: 1204 PATIENT: KARMA ROWLAND UNIT #: [id number]#: [id number] [address] AGE: 56 SEX: M ATTEND: Mj Vences [facility] AUTHOR: Elizabeth Collado [facility] * ALL edits or amendments [...] admin history: Lab Lab Level SCr Info Patch Machine Operator Med Dose Interaction/Dialysis Date/Time Date/Time Notes: Treatment [...] 400-600 mcg*hr/ml A/P 09/08:* Pt transferred from [facility] to [facility] 09/01* Tmax: 98.8 F, WBC 9.1 [...] vanc dose to goal at 1217 RPT #:[id number] OF REPORTPRProgress kizu8429-06-36S09:04:00G.GIDA88121008-6054J VAvailable for patient zstbZOMVDTLWIAJOWN8692-80-86G67:17:40 [facility] 2022-09-08 10:47:00 [id number]+ivpq3uUjg4Va4kDitgh g5d gZj1Fe8ku0GAQZPkAiAuSz7GHYk6GJsoB0451-94-08 T10:47:596797-[address] [address] PATIENT NAME: KARMA ROWLAND ADMIT DATE: 09/02/22ACCOUNT NO: [id number] ROOM NO: G.537 AGE: 56 REPORT TYPE: ENDOSCOPY REPORT SEX: M ADMITTING PHYSICIAN:Mj Vences MD ATTENDING PHYSICIAN:Mj Vences MD Gastroenterology Patient Name: Karma Rowland Procedure Date: 09/08/2022 10:47 AMMRN: [id number] of : 1965 Procedure: Upper GI endoscopyIndications: [...] procedure by the physician, the nurse, the shredding machine knife changer and the data entry technician. The procedure was verified in the procedure room. - Pre-procedure physical examination revealed no contraindications to sedation. - ASA Grade Assessment: III - A patient with severe systemic disease. - After reviewing the risks and benefits, the patient was deemed in satisfactory condition to undergo the procedure. - Monitored anesthesia care under the supervision of a ENGINEERING MODEL MAKER was determined to be medically necessary for [...] complications. Estimated Blood Loss: Estimated blood loss: none.Impression: - Normal esophagus. - Erythematous mucosa in the antrum. - Normal examined duodenum. - No specimens collected.Recommendation: - Return patient to hospital [facility] for ongoing care. - Resume previous diet. - Continue present medications. Procedure Code(s): --- Professional --- 20168, Esophagogastroduodenoscopy, flexible, transoral; diagnostic, including collection of specimen(s) by brushing or washing, when performed (separate procedure)Diagnosis Code(s): --- Professional --- K31.89, Other diseases of stomach and duodenum D50.0, Iron deficiency anemia secondary to blood loss (chronic) CPT copyright 2020 [employer]. All rights reserved. The codes documented in this report are preliminary and upon waxing machine operator review may be revised to meet current compliance requirements. Kassie Avitia MD09/08/2022 1:02:49 PMNumber of Addenda: 0 Note Initiated On: 09/08/2022 10:47 AMProvation {[id number]}.pdf ProVation FT PDF at 1303 PATIENT NAME: KARMA ROWLAND tfagepv4041-44-87B27:03:00G.DSL82526233-826 3AVAvailable for patient gmurZCJJKVGZSWTILR4232-64-56C13:03:34 [facility] 2022-09-08 10:07:00 [id number]cO3Z tJd fWngcS8IK5jXcutlMjBCJoDFZv0wyHeQR1222-12-32 T10:07:535128-6890 [place] [address] PATIENT NAME: KARMA ROWLAND ADMIT DATE: 09/02/22ACCOUNT NO: [id number] ROOM NO: G.537 AGE: 56 REPORT TYPE: eELECTROCARDIOGRAM REPORT SEX: M ADMITTING PHYSICIAN:Mj Vences MD ATTENDING PHYSICIAN:Mj Vences MD Order:[id number] Reason : PREOP EVAL Test Date/Time Stamp:ThuSep [...] of 18-AUG-2022 01:43,Significant changes have occurredConfirmed by PRASAD ZEPEDA, NAPOLEON ([id number]) on 09/11/2022 5:46:20 PM Referred By: Mj Vences Confirmed by:JITENDRA PARHAM MD at 4867 PATIENT NAME: KARMA ROWLAND .[id number] for patient sazuDWQBKJMSNGHANZ2378-14-44X87:46:38 [facility] 2022-09-08 09:57:00 [id number]+yI6e KSF gJd/jEUwhREtv0k/b/8VD8AgREfVQF7CD3730-70-07 T09:57:00 [facility] ([facility])Rehab Progress NoteREPORT#:[id number] REPORT STATUS: SignedDATE:09/08/22 TIME: 0957 PATIENT: KARMA ROWLAND UNIT #: [id number]#: [id number] [address] [birth year] AGE: 56 SEX: M ATTEND: Mj Vences MDADM AUTHOR: Mj Vences MD * ALL edits or amendments must be made on the electronic/computer document * SubjectiveChief complaint:Rehabilitation follow-upTo go down for endoscopyDoing better+ BMEatingDenies CARRASCO/N/V/D/CP14 systems reviewed and neg. except that above.History [...] homans neg), BUE 5/5, LLE4/5, R hip 3-Neuro/CONTRACT RUNNER: alert, oriented X 3, CNII-XII intact ResultsFindings/Data:Laboratory [...] (Auto) (14.0 - 32.0 %) 13.7 L [place] % (Auto) (4.8 - 9.0 %) 7.2 Eos % (Auto) (0.3 - 3.7 %) 4.8 H Baso % (Auto) (0.0 - 2.0 %) 0.3 Neut # (Auto) (2.0 - 7.6 x10 3/uL) 6.64 Lymph # (Auto) (1.0 - 3.8 x10 3/uL) 1.24 [place] # (Auto) (0.1 - 0.8 x10 3/uL) [...] pulmonary opacitiesImpression By: TipTDO Cr Mares M.D. Diagnosis, Assessment PlanProblem List/A P: [...] fasciitisS/p surgical debridement and washout4/6: S/p right SATHYAA-Dr. LeroySignificant impairment in self-care, [...] H-no evidence of gross bleeding-discussed with Dr. TrinidadCleoxhje-Scmcbjhyaycf-vbbldrvzj uwqoxypl-PTV-zqtvtv-CW Senokot and MiraLAX, DSP-Right SWB-ddlldpd-vtaecowc resolved, dressings changed unviq-mkydoqz-gjygwaaf NPA-NHZS-MMRP OF NARES on Bactroban protocol-LLE edema-venous Doppler with complex heterogeneous hypoechoic fluid collectionin the left calf region measuring 8.4, 2.8, 2.5 cm suggestive of hematoma. HoldLasix x3 days. Joan wrap calf-Generalized edema-some shortness of breath and abdominal distention-cardiology gave a dose of IV Lasix-monitor urine output, daily weights-Chest x-ray with minimal basilar pulmonary pvjcspnxq-Mmywmv-ljvvrpyesv 8.5, transfused 2 units of PRBC on [...] BOARD TRANSFER TO WITH SBA. Pt. PROPELLED WC FOR 200 FT 3 TIMES FOR ENDURANCE [...] PHYSICIAN CONSULT 09/08 1540 Active PREALBUMIN 09/08 0615 Complete CREATINE KINASE (CK) 09/08 0615 Complete ALBUMIN 09/08 0615 Complete OT ADL 09/08 UNK Complete Consultants: cardiology, endocrinology, hospitalist, infectious disease, podiatryRehab attestation:Face to face exam completed. Treatment plan discussed with patient. Meets continued stay criteria. Agree with interdisciplinary treatment plan. at 1541 RPT #:[id number] OF REPORTPRProgress [id number]:57:00G.[id number] VAvailable for patient ddnlZCEBXCCYNUKQVF4672-98-00C26:42:15 [facility] 2022-09-08 06:36:00 [id number]+vv+HuzqttANmAcsg83AFtVLu5 +/J lvC8f+BemTsnha791+g9Jj3jKEazzjp0H9225-53-57 T06:36:00 [facility] NoteREPORT#:[id number] REPORT STATUS: SignedDATE:09/08/22 TIME: 0636 PATIENT: KARMA ROWLAND UNIT #: [id number]#: [id number] ROOM/BED: [facility] [place]DOB: [birth year] AGE: 56 SEX: [...] capillary refillMusculoskeletal: normal inspection, painless range of motionNeuro/CONTRACT RUNNER: alert, oriented X 3, 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 Considered [...] BP meds and follow at 0559 RPT #:[id number] OF REPORTPRProgress zmug8777-17-22H92:36:00G.[id number] VAvailable for patient zrafVEZEHNWQOXRYWN0405-95-82Y55:59:53 [facility] 2022-09-08 06:22:00 [id number] MGk 4t8bJwe1cYr5iny2yRsZAa8q3ulV0ChK48356-67-25 T06:22:00 [facility] ([facility])Pain Management Progress NoteREPORT#:[id number] REPORT STATUS: SignedDATE:09/08/22 TIME: 621 PATIENT: KARMA ROWLAND UNIT #: [id number]#: [id number] [address] AGE: 56 SEX: M ATTEND: OlafderrickmannMj B MDADM AUTHOR: Charlie Quiroga MACHINIST APPRENTICE WOOD * ALL edits or amendments must be [...] Documented: Result Date Time B/P 160/78 09/07 2358 B/P Mean 105 09/07 2358 Pulse 91 [...] bowel soundsExtremities: moves all, no edema, pedal pulsesNeuro/CONTRACT RUNNER: 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, no sensory deficits, CNII-XII [...] 6 hours as needed pain scale 1 3-[place] 10/325 1 tablet p.o. every 4 hours [...] whom agrees. Thank you for the consultation. 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:-database searched, no information found Kingsley Ng 09/26/22 1257:Attestations Physician AttestationAgree w/findings plan:The patient was seen and examined by Charlie Quiroga. I personally developed thecare plan, which was continued by the mid-level provider. I was immediately available. at 1440 at 1259 [facility] #:[id number] OF REPORTPRProgress pida1482-85-97R59:22:00G.TKJD29808551-4851M VAvailable for patient tnpmPONTSPIBQHLBOX7528-80-02T90:40:23 [facility] 2022-09-07 19:10:00 [id number]Uvsy [facility] hZfsdIYpe/DmwU8+TzrsDTQfcTn/6crfE0001-23-64 T19:10:00 [facility] ([facility])Pain Management Progress NoteREPORT#:[id number] REPORT STATUS: SignedDATE:09/07/22 TIME: 1909 PATIENT: KARMA ROWLAND UNIT #: [id number]#: [id number] [address] [birth year] AGE: 56 SEX: M ATTEND: Mj Vences [facility] AUTHOR: Ben Klein * ALL edits or [...] bowel soundsExtremities: moves all, no edema, pedal pulsesNeuro/CONTRACT RUNNER: 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, no sensory deficits, CNII-XII [...] 6 hours as needed pain scale 1 3-[place] 10/325 1 tablet p.o. every 4 hours [...] whom agrees. Thank you for the consultation. 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:-database searched, no information found Kingsley Ng 09/24/22 1631:Attestations Physician AttestationAgree w/findings plan:The patient was seen and examined by Ben Klein. I personally developed the care plan, which was continued by the mid-level provider. I was immediately available. at 1911 at 1637 RPT #:[id number] OF REPORTPRProgress rsge3328-23-96Q25:10:00G.FHLM11552492-9513G VAvailable for patient jwofCIEIWJLAMVEAGW5103-29-20T08:11:51 [facility] 2022-09-07 16:24:00 [id number]Ouio qBS bqns1xrJfGbgBjez7lxKeoknMbhagTFLs1427-36-22 T16:24:00 [facility] Progress NoteREPORT#:[id number] REPORT STATUS: SignedDATE:09/07/22 TIME: 162 PATIENT: KARMA ROWLAND UNIT #: [id number]#: [id number] [address] AGE: 56 SEX: M ATTEND: Mj Vences [facility] AUTHOR: Braxton Chapin MD * ALL edits [...] Sepsis5. Prostate abscess.6. AnemiaBlood sugar 135-51 mg/dL.H/H 8.6/.1Adjust insulin dose.PT and OT. at 1625 RPT #:[id number] OF REPORTPRProgress fpcs4278-72-38B47:24:00G.UILA39620303-5442T VAvailable for patient upwlMYCOHENKRKCPLC8377-31-59Z92:26:05 [facility] 2022-09-07 13:01:00 [id number]0zS/ gZe anOzKPSkvL0HIXCdamU89zgec1a92hKVU8066-35-90 T13:01:00 [facility]Hospital[facility] Progress NoteREPORT#:[id number] REPORT STATUS: SignedDATE:09/07/22 TIME: 1301 PATIENT: KARMA ROWLAND UNIT #: [id number]#: [id number] [address] AGE: 56 SEX: M ATTEND: Mj Vences MDADM AUTHOR: Musa Enriquez MD * ALL [...] 24 hour I O ending at 0700: 16 0700 0415 1900 Intake Total Output Total 1500 1000 [...] capillary refillMusculoskeletal: normal inspection, painless range of motionNeuro/CONTRACT RUNNER: alert, oriented X 3, 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 Considered [...] continue with pt ot at 1505 RPT #:[id number] OF REPORTPRProgress opmw1072-28-99W40:01:00G.PHMT69497514-7737U VAvailable for patient ryewRIKGQTLILDBBSJ8660-54-30S66:05:41 [facility] 2022-09-07 10:08:00 [id number]/cEETpG3I TRT lhyjdvPXHjBsX72T9LfaIEpCjeZEz2ZDz8907-71-41 T10:08:00 [facility])Gastroenterology Progress NoteREPORT#:[id number] REPORT STATUS: SignedDATE:09/07/22 TIME: 1008 PATIENT: KARMA ROWLAND UNIT #: [id number]#: [id number] [address] [birth year] AGE: 56 SEX: M ATTEND: [...] hospitalist, infectious disease, podiatry at 1009 RPT #:[id number] OF REPORTPRProgress arxl1538-17-65B19:08:00G.JAAO69987571-9264U VAvailable for patient aczoLUGOOSICGRTCOQ1756-46-47W24:09:48 [facility] 2022-09-07 10:08:00 [id number]wpHD zo8 we0B/PiGs1NhWDB15jaxiWMJj7NybbWJN6788-99-82 T10:08:00 [facility] ([facility])Pharmacy Prog.Note-VancomycinREPORT#:[id number] REPORT STATUS: SignedDATE:09/07/22 TIME: 1008 PATIENT: KARMA ROWLAND UNIT #: [id number]#: [id number] [address] [birth year] AGE: 56 SEX: M ATTEND: Mj Vences [facility] AUTHOR: Willie Rivera [facility] * ALL edits or amendments must be made on the electronic/computer document * Vancomycin Vancomycin Medication TherapyGoal: AUC 400-600 mg*hr/LIndication for treatment:OM and MRSA BacteremiaSite of infection: knownDay of therapy:7Weight: Actual weight (kg): 75VS and I/O:Vital SignsDate Temp Pulse Resp B/P B/P Mean Pulse Ox TgU934/-09/07 97.3-99.1 84-101 13-19 139-167/67-83 0.0-109.8 95-100 72 hours ending at 0700 09/07 0700 09/06 1900 09/06 0709/05 1900 09/05 09/04 0700 1900Intake 1420.00 1220 250TotalOutput 1500 1000 2050 1000 900TotalBalance -1500 -1000 -630.00 1220 -750 -900 Intake, IV 720.00 500Intake, 720 250OralIntake, 700PackedCellsNumber 1BowelMovementsNumber 0 0 0 0IncontinentVoidsNumber 0 0 0 0VoidsOutput, 1500 1000 2050 1000 900Urine 72 Hour I O Total 09/07 0700 04/15 0700 09/05 0700 Intake Total 2640.00 250 Output Total [...] admin history: Lab Lab Level SCr Info Patch Machine Operator Med Dose Interaction/Dialysis Date/Time Date/Time Notes: Treatment [...] 400-600 mcg*hr/ml A/P 09/07:* Pt transferred from [facility] to [facility]hab 09/01* tmax: 97.9, WBC 8.4 (09/07) [...] to continue pulse dosing.* at 1011 RPT #:[id number] OF REPORTPRProgress qsxo4550-75-38G55:08:00G.SJMJ34910173-6926C VAvailable for patient lzcmUPDWTZXVVSCJOR3656-82-94T69:12:08 [facility] 2022-09-07 06:25:00 [id number]Lhl3+VKuMSE WM8 6AZDMaMYEkPeIzMNbni/BTbWUrgCGmjvu2882-82-59 T06:25:00 [facility] ([facility])Rehab Progress NoteREPORT#:[id number] REPORT STATUS: SignedDATE:09/07/22 TIME: 0625 PATIENT: KARMA ROWLAND UNIT #: [id number]#: [id number] [address] AGE: 56 SEX: M ATTEND: Mj Vences MDADM AUTHOR: Guero Candelaria * ALL edits or amendments must be made on the electronic/computer document * Guero Candelaria 09/07/22 0625:SubjectiveChief complaint:Rehabilitation follow-upDoing better+ BMEatingDenies CARRASCO/N/V/D/CP14 systems reviewed and neg. except that above.History [...] Flow FiO2 Mean Ox Delivery Rate 09/06 2321 [...] homans neg), BUE 5/5, LLE4/5, R hip 3-Neuro/CONTRACT RUNNER: alert, oriented X 3, CNII-XII intact ResultsFindings/Data:Laboratory [...] fasciitisS/p surgical debridement and washout4/6: S/p right SATHYAA-Dr. Greenberggnificant impairment in self-care, [...] H-no evidence of gross bleeding-discussed with Dr. TrinidadQfxizftk-Cgzyzzghpagc-wdrjwcube tdtyybai-JFG-bcrnge-CW Senokot and MiraLAX, DSP-Right AOM-ylgwlak-doxepqac resolved, dressings changed tpssm-wwrwjfj-evixygfx FUW-DWSF-IEKD OF NARES on Bactroban protocol-LLE edema-venous Doppler with complex heterogeneous hypoechoic fluid collectionin the left calf region measuring 8.4, 2.8, 2.5 cm suggestive of hematoma. HoldLasix x3 days. Joan wrap calf-Generalized edema-some shortness of breath and abdominal distention-cardiology gave a dose of IV Lasix-monitor urine output, daily weights-Chest x-ray with minimal basilar pulmonary epwkayxfp-Gbbisg-zguvxxkipa 2 units of PRBC on 09/05-Advance therapies [...] endoscopy tomorrow at 1044 at 1716 RPT #:[id number] OF REPORTPRProgress naef0894-23-38D85:25:00G.JLQS82319260-8118Q VAvailable for patient ljgdWMEHYEUJSWLQNR7391-55-38E76:46:24 [facility] 2022-09-06 17:38:00 L13787723400E5x4ym+pIBscfi4LUtmHFAnR8bwf bBp 1x2bnNhKS0pYO+S07S3LnnqC3u+Xkt4Yv2214-93-22 T17:38:00 [facility] ([facility])Endocrinology Progress NoteREPORT#:[id number] REPORT STATUS: SignedDATE:09/06/22 TIME: 1737 PATIENT: KARMA ROWLAND UNIT #: [id number]#: [id number] [address] [birth year] AGE: 56 SEX: M ATTEND: [...] Date/Time Procedure - Status Source Growth 09/04 1738 Occult Blood - COMP STOOL Recent Impressions:RADIOLOGY [...] insulin dose.PT and OT. at 1739 RPT #:[id number] OF REPORTPRProgress qubt4448-86-86G71:38:00G.IUOI57135101-4416H VAvailable for patient fkhsAKMDHHNLVRTRWE3576-38-68Y46:39:58 [facility] 2022-09-06 14:33:00 F430222677249MVi303yh1jcBtIb3AjalFFfSj9E 3EP b4ZXs3N597QhdXkOhw8NiNe+9ZQmndiI43751-19-21 T14:33:00 [facility] ([facility])Gastroenterology Progress NoteREPORT#:[id number] REPORT STATUS: SignedDATE:09/06/22 TIME: 1433 PATIENT: KARMA ROWLAND UNIT #: [id number]#: [id number] [address] [birth year] AGE: 56 SEX: M ATTEND: [...] hospitalist, infectious disease, podiatry at 1435 RPT #:[id number] OF REPORTPRProgress tyhc3835-72-95I59:33:00G.MTWN51241775-3841U VAvailable for patient jfgcGEQEFJICNRIGEO7360-34-81X84:35:39 [facility] 2022-09-06 12:30:00 [id number]+TH3l9bOms7ZAHEVTmh6D WTe JgobLIhO4VMT7NK5VGSUe5pPiYxNXd+ob3977-83-47 T12:30:00 [facility]Hospital[facility] Progress NoteREPORT#:[id number] REPORT STATUS: SignedDATE:09/06/22 TIME: 1230 PATIENT: KARMA ROWLAND UNIT #: [id number]#: [id number] [address] [birth year] AGE: 56 SEX: M ATTEND: Mj Vences [facility] AUTHOR: Musa Enriquez MD * ALL edits [...] 2230 37.1 94 15 158/75 102.7 97 09/05 2227 36.9 96 16 150/73 98.5 95 [...] capillary refillMusculoskeletal: normal inspection, painless range of motionNeuro/CONTRACT RUNNER: alert, oriented X 3, 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 Considered [...] continue with pt ot at 1624 RPT #:[id number] OF REPORTPRProgress tcll5315-67-33N00:30:00G.GQIN06786562-2187R VAvailable for patient eomdJFJYHVPRJAPEVV8809-56-03K73:24:56 [facility] 2022-09-06 09:10:00 [id number]/zmOChUTYN0vDTCf9knBqvURBLn AIRCRAFT DESIGN ENGINEER xvA02IQOr1MX6bpbl54hUQSDsSbYbZYf76002-00-78 T09:10:00 [facility] Prog.Note-VancomycinREPORT#:[id number] REPORT STATUS: SignedDATE:09/06/22 TIME: 09 PATIENT: KARMA ROWLAND UNIT #: [id number]#: [id number] ROOM/BED: 537[address]1DOB: [birth year] AGE: 56 SEX: M ATTEND: Mj Vences [facility] AUTHOR: Hyun Pichardo [facility] * ALL edits or amendments [...] 400-600 mcg*hr/ml A/P 09/06:* Pt transferred from [facility] to [address] [place], [place] [address]ab 09/01* tmax: 37.3, WBC 8.7 (09/03) * [...] Addendum 1: 09/06/22 1640 by Hyun Pichardo [facility] Vancomycin trough: 18.9 (supratherapeutic), Vancomycin held for today. Random ordered with AM labs tomorrow as unsure if renal function will continue to get worse or start to improve. Will dose based on level tomorrow am. at 1641 [facility] #:[id number] OF REPORTPRProgress heln6739-12-94C72:10:00G.TOHB33497328-4991D VAvailable for patient fcpaSXZBVYEKOXSXRP0983-94-37X84:27:27 [facility] 2022-09-06 07:31:00 [id number]giBOscRkZs /c6 0zW36lU+OHOBVNwJslNnqjpT+L7Dd6rmt7860-72-59 T07:31:00 [facility] ([facility])Pain Management Progress NoteREPORT#:[id number] REPORT STATUS: SignedDATE:09/06/22 TIME: 730 PATIENT: KARMA ROWLAND UNIT #: [id number]#: [id number] [address] AGE: 56 SEX: M ATTEND: Mj Vences [facility] AUTHOR: Ben Klein * ALL edits or [...] Pulse Resp B/P B/P Mean Pulse Ox UfV205/14-09/06 36.3-37.3 88-101 15-19 144-166/68-82 93.7-109.8 95-100 Last Documented: Result Date Time Pulse Ox 100 09/06 717 B/P 156/77 09/06 717 B/P Mean 103.1 09/06 717 O2 Delivery Room air 09/06 717 Temp 36.7 09/06 717 Pulse 88 09/06 0718 Resp 18 09/06 717 24 hour I [...] bowel soundsExtremities: moves all, no edema, pedal pulsesNeuro/CONTRACT RUNNER: 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, no sensory deficits, CNII-XII [...] hyperemia. May represent a hematoma.Impression By: Kacey - Mert Ga M.D.RADIOLOGY - XR CHEST 1 V 09/05 1432 Report Impression - Status: SIGNED Entered: 09/05/2022 1515 IMPRESSION: Minimal bibasilar pulmonary opacitiesImpression By: Yared Campbellor, M.D. Diagnosis, Assessment PlanFree text A P:A/P:Patient [...] 6 hours as needed pain scale 1 3-[place] 10/325 1 tablet p.o. every 4 hours [...] whom agrees. Thank you for the consultation. 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:-database searched, no information found Kingsley Ng 09/23/22 1734:Attestations Physician AttestationAgree w/findings plan:The patient was seen and examined by Ben Klein. I personally developed the care plan, which was continued by the mid-level provider. I was immediately available. at 1816 at 1737 RPT #:[id number] OF REPORTPRProgress gkrb8641-22-13V28:31:00G.DZRN75865056-7387A VAvailable for patient afdhPMIYTKOZMUIEVF5082-27-05R82:17:22 [facility] 2022-09-06 06:24:00 [id number]/ly/2nmTQQ2lsOuK3/IsmaelI/BELLA ElkinsN 2WDRrpTz2DYi+5nwk5EzFuHyTET9cavi16714-09-25 T06:24:00 [facility] Progress NoteREPORT#:[id number] REPORT STATUS: SignedDATE:09/06/22 TIME: 623 PATIENT: KARMA ROWLAND UNIT #: [id number]#: [id number] [address] AGE: 56 SEX: M ATTEND: Mj Vences [facility] AUTHOR: Guero Candelaria * ALL edits or amendments must be made on the electronic/computer document * Guero Candelaria 09/06/22 0624:SubjectiveChief complaint:Rehabilitation follow-upDoing better+ BMPatient very motivatedEatingDenies CARRASCO/N/V/D/CP14 systems reviewed and neg. except that above.History [...] Flow FiO2 Mean Ox Delivery Rate 09/06 0127 [...] homans neg), BUE 5/5, LLE4/5, R hip 3-Neuro/CONTRACT RUNNER: alert, oriented X 3, CNII-XII intact ResultsFindings/Data:Laboratory [...] By: TipRG17 - Roger Parra M.D.[facility]OUND [facility] 09/05 1146 Report Impression - Status: SIGNED [...] 1515 IMPRESSION: Minimal bibasilar pulmonary opacitiesImpression By: t.SDR.TDO - Bishop O'Kerwin, M.D. Diagnosis, Assessment PlanProblem List/A P: 1. [...] H-no evidence of gross bleeding-discussed with Dr. TrinidadCvdbktkc-Mrgwfoinhpji-xpejfosxi bomgaocz-HHO-gymnat-CW Senokot and MiraLAX, DSP-Right QZQ-vazdqmq-epgunhuh resolved, dressings changed oadla-kafrdky-jxbcvimr VQW-WHSY-REOP OF NARES on Bactroban protocol-LLE edema-venous Doppler with complex heterogeneous hypoechoic fluid collectionin the left calf region measuring 8.4, 2.8, 2.5 cm suggestive of hematoma. HoldLasix x3 days. Joan wrap calf-Generalized edema-some shortness of breath and abdominal distention-cardiology gave a dose of IV Lasix-monitor urine output, daily weights-Chest x-ray with minimal basilar pulmonary rdokdybzh-Tsvecn-ibygirkdts 2 units of PRBC on 09/05-Advance therapies [...] GI input at 0858 at 2017 RPT #:[id number] OF REPORTPRProgress tupr3011-36-25U74:24:00G.DKAC80969606-5836Z VAvailable for patient hidhUPWZMMNDCBCCFB0871-05-48N59:58:34 [facility] 2022-09-05 18:58:00 [id number]+v9PD3SlfXUBBmb c8s C51btgid5lEdu9K53tOgpdp3wbz42yz/R3804-38-63 T18:58:00 [facility] ([facility])Podiatry Progress NoteREPORT#:[id number] REPORT STATUS: SignedDATE:09/05/22 TIME: 1857 PATIENT: KARMA ROWLAND UNIT #: [id number]#: [id number] [address] AGE: 56 SEX: M ATTEND: Mj Vences [facility] AUTHOR: Liam Pedersen DPM * ALL edits or amendments must be made on the electronic/computer document * SubjectiveChief complaint:left heel ulcer. left ankle painPatient reports: no chest pain, no cough, no dizziness, no heartburn, no itchingComments:doing well with therapy Objective GeneralVS:Last Documented: Result Date Time Pulse Ox 96 09/05 184 B/P 151/75 09/05 184 B/P Mean 100.6 09/05 184 Pulse 91 09/05 184 Temp 36.3 09/05 1644 Resp 17 09/05 [...] O:24 hour I O ending at 0700: 0414 0700 04/13 1900 Intake Total 250 Output Total 1000 [...] hyperemia. May represent a hematoma.Impression By: TipABJames Ga M.D.RADIOLOGY - XR CHEST 1 V [...] hospitalist, infectious disease, podiatry at 1859 RPT #:[id number] OF REPORTPRProgress zkxi5448-25-72C79:58:00G.RVMQ30106578-6869M VAvailable for patient dbysOJPKQLYWQOYWCV4355-59-20J81:59:43 [facility] 2022-09-05 15:15:00 J89293553510tmUDVDl1OSfw7mkyl2scY/b7TRm3 lD+ tzSzWeVurkk+C2glxhmtQyXIC67MDGkD+2022-09-05 T15:15:00 [facility] ([facility])Endocrinology Progress NoteREPORT#:[id number] REPORT STATUS: SignedDATE:09/05/22 TIME: 151 PATIENT: KARMA ROWLAND UNIT #: [id number]#: [id number] [address] AGE: 56 SEX: M ATTEND: Mj Vences AUTHOR: Braxton Chapin MD * ALL edits or amendments must be made on the electronic/computer document * SubjectivePatient reports: no complaints Objective GeneralVS:Last Documented: Result Date Time Pulse Ox 96 09/05 1443 B/P 156/75 09/05 1443 B/P Mean 102.0 09/05 1443 O2 Delivery Room air 09/05 144 Temp 36.9 09/05 144 Pulse 93 09/05 1443 Resp 19 09/05 1443 PATIENT WEIGHT: Weight (lb): 165Weight [...] insulin dose.PT and OT. at 1516 RPT #:[id number] OF REPORTPRProgress hhhq5279-30-50O45:15:00G.WJBW06962124-6058W VAvailable for patient xxiqIRYVMQFCYIPBBF2879-88-41Z55:16:43 [facility] 2022-09-05 15:04:00 P378143830905HzKG4FqxKQfVwhIbKr75fW7/I1R phe AwSmUoz1IZQZwyTHbv82DGWQun9kbtN8l5710-90-34 T15:04:00 [facility] ([facility])Pain Management Progress NoteREPORT#:[id number] REPORT STATUS: SignedDATE:09/05/22 TIME: 1504 PATIENT: KARMA ROWLAND UNIT #: [id number]#: [id number] [address] AGE: 56 SEX: M ATTEND: Mj Vences [facility] AUTHOR: Ben Klein * ALL edits or [...] Pulse Resp B/P B/P Mean Pulse Ox JiQ981/-09/05 36.5-37.1 84-93 13-19 139-167/67-80 91.0-108.7 96-99 Last [...] bowel soundsExtremities: moves all, no edema, pedal pulsesNeuro/CONTRACT RUNNER: 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, no sensory deficits, CNII-XII [...] By: TipRG17 - Roger Parra M.D.ULTRASOUND - [facility] 09/05 1146 Report Impression [...] 6 hours as needed pain scale 1 3-[place] 10/325 1 tablet p.o. every 4 hours as needed pain scale 4 10-Dilaudid 1 mg IV every 6 hours as needed pain scale 7 10, second line therapy-patient will require close monitoring while using IV narcotics for any deleterious effect-Lidoderm patch to left ankle daily-IV antibiotics with vancomycin until 5-4-2899-Local wound care-manageable Diabetic peripheral neuropathy-patient is based [...] whom agrees. Thank you for the consultation. 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:-database searched, no information found Kingsley Ng 09/23/22 0654:Attestations Physician AttestationAgree w/findings plan:The patient was seen and examined by Ben Klein. I personally developed the care plan, which was continued by the mid-level provider. I was immediately available. at 1507 at 0657 RPT #:[id number] OF REPORTPRProgress kgxx4671-07-48E49:04:00G.KUMB01335450-7851J VAvailable for patient vefbAGHOZEJRSCNCQV1895-92-10M36:07:52 [facility] 2022-09-05 14:26:00 [id number]RQWYYqcOFxe wsm FHqXqGbDUzwb/PvQ+klf8kOa1a3/Yz7u16595-02-55 T14:26:00 [facility] ([facility]) Consultation NoteREPORT#:[id number] REPORT STATUS: SignedDATE:09/05/22 TIME: 142 PATIENT: KARMA ROWLAND UNIT #: [id number]#: [id number] [address] AGE: 56 SEX: M ATTEND: Mj Vneces MDADM AUTHOR: Tiara Tillman MACHINIST APPRENTICE WOOD * ALL edits or amendments must be [...] O2 Delivery Room air 09/05 07 Temp 37.1 09/05 0742 Pulse 89 09/05 0742 Resp 18 09/05 0742 24 hour I O ending at 0700: [...] By: [email or web address] - Roger Parra M.D.ULTRASOUND - [facility] 09/05 1146 Report Impression [...] as noted. at 1447 at 0718 RPT #:[id number] OF REPORTXXOlamwgfedhov9792-01-91S49:26:00G .GRFH31110922-5101DLVvwekxdio for patient qfxjTTSJAFLCXSTGRZ3291-14-16T68:48:27 [facility] 2022-09-05 14:25:00 Q38159999047meoIit9ojZDBqN6DqVUaJqHlapLR 64Y CNY7TIPTMWsI77pGn7p9HwraNcAb6tsdG0120-11-60 T14:25:00 [facility] ([facility])Infectious Dis. Progress NoteREPORT#:[id number] REPORT STATUS: SignedDATE:09/05/22 TIME: 1425 PATIENT: KARMA ROWLAND UNIT #: [id number]#: [id number] [address] AGE: 56 SEX: M ATTEND: Mj Vences Bandar [facility] AUTHOR: Merry Wolff MD * ALL edits [...] Pulse Resp B/P B/P Mean Pulse Ox TaO517/13-09/05 97.7-98.8 84-89 13-18 139-167/67-80 91.0-108.7 97-99 Last [...] right BKA Left foot wound +dressing in placeNeuro/CONTRACT RUNNER: alert, oriented X 3 Considered stroke alert: [...] on 09/05/22 at 1428 at 1103 RPT #:[id number] OF REPORTPRProgress vxzu1641-35-89B35:25:00G.PZJQ01910417-8379X VAvailable for patient cijxSPEVIMJPZFFGLE1924-92-60O62:05:00 [facility] 2022-09-05 11:05:00 [id number]8 D3/ PDQdt5APlkwbdbP0pi3Dkzy2AbZ3ucq161362-66-45 T11:05:00 [facility] NoteREPORT#:[id number] REPORT STATUS: SignedDATE:09/05/22 TIME: 1105 PATIENT: KARMA ROWLAND UNIT #: [id number]#: [id number] [address] AGE: 56 SEX: M ATTEND: Mj V[facility] AUTHOR: Wilbert Ramires MD * ALL edits [...] capillary refillMusculoskeletal: normal inspection, painless range of motionNeuro/CONTRACT RUNNER: alert, oriented X 3, 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 Considered stroke alert: noSkin: dry, intactPsychiatry: normal affect, normal judgment/insight ResultsFindings/Data:Laboratory Tests 09/0515 2042 1557 Chemistry Sodium (134 - 147 [...] and transfuse as needed at 1106 RPT #:[id number] OF REPORTPRProgress eonh5706-84-23U67:05:00G.[id number] VAvailable for patient hovjSCNZHNVABHCRCF4146-47-70L02:06:42 [facility] 2022-09-05 11:02:00 [id number]/HE9Kg k+L vzLZnCvLZT5nXb863mGPdn4CVQbhrJYEH2828-23-72 T11:02:00 [facility] (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 Diagnosis, Assessment PlanConsultants: cardiology, endocrinology, [...] practitioner. Will follow. at 1601 at 1638 RPT #:[id number] OF REPORTPRProgress ylxk5818-74-20T97:02:00G.[id number] VAvailable for patient szxzRSPPCXGYLJGWDS3214-52-84N80:01:42 [facility] 2022-09-05 06:16:00 [id number]OB 7Gb jTtqBXt0sPX+Qk7ktzIChb393mKHwqjNA4452-41-00 T06:16:00 [facility] ([facility])Rehab Progress NoteREPORT#:[id number] REPORT STATUS: SignedDATE:09/05/22 TIME: 0616 PATIENT: KARMA ROWLADN UNIT #: [id number]#: [id number] [address] AGE: 56 SEX: M ATTEND: [...] homans neg), BUE 5/5, LLE4/5, R hip 3-Neuro/CONTRACT RUNNER: alert, oriented X 3, CNII-XII intact ResultsFindings/Data:Laboratory [...] % (Auto) (14.0 - 32.0 %) 15.1 [place] % (Auto) (4.8 - 9.0 %) 6.8 Eos % (Auto) (0.3 - 3.7 %) 2.3 Baso % (Auto) (0.0 - 2.0 %) 0.3 Neut # (Auto) (2.0 - 7.6 x10 3/uL) 6.51 Lymph # (Auto) (1.0 - 3.8 x10 3/uL) 1.31 [place] # (Auto) (0.1 - 0.8 x10 3/uL) [...] Report Impression - Status: SIGNED Entered: 09/04/2022 995 IMPRESSION: Benign appearance of the abdomen.Impression By: [...] to left heel/DTI dorsal left midfootProstatic abscess /4: S/p transrectal ultrasound aspiration of abscess and [...] H H-no evidence of gross bleeding-discussedwith Dr. TrinidadAxwhuvwb-Ctvncjfvrvzo-hetpvbysp iatdepzc-NXY-zgxexf-CW Senokot and MiraLAX, DSP-Right JWS-nchenbv-ziexppzz resolved, dressings changed mcvbx-rhrctzr-nbzyfjgt KFO-XFPG-UCGQ OF NARES on Bactroban protocol-LLE edema-check venous Doppler-Generalized edema-some shortness of breath and abdominal distention-cardiology gave a dose of IV Lasix-monitor urine output, daily weights-Chest x-ray pending ordered by iwxdqd-Afahgy-ltqbzysfui 2 units of PRBC-discussed with medicine-see orders-Advance [...] with interdisciplinary treatment plan. at 1308 RPT #:[id number] OF REPORTPRProgress ygwp6816-13-63Z90:16:00G.KSYQ56469189-7456Q VAvailable for patient rrmxADFATQXDBALGHB5761-22-60X32:09:05 [facility] 2022-09-04 17:38:00 [id number]d+gi 85N 5Q3lOYUsJj+zRtY5PglWaBEid3kwEP/UT9520-26-82 T17:38:00 [facility] ([facility])Endocrinology Progress NoteREPORT#:[id number] REPORT STATUS: SignedDATE:09/04/22 TIME: 1738 PATIENT: KARMA ROWLAND UNIT #: [id number]#: [id number] [address] AGE: 56 SEX: M ATTEND: Mj Vences [facility] AUTHOR: Braxton Chapin MD * ALL edits [...] cardiology, endocrinology, hospitalist, infectious disease, podiatry at 3100 RPT #:[id number] OF REPORTPRProgress ihve0621-31-39M36:38:00G.CTBV48931067-2460E VAvailable for patient bsinTIPZLRIXREXCSF6757-72-36F64:41:14 [facility] 2022-09-04 15:24:00 [id number]/wyQiZ/+6vuLeD7fqSd348VNO +a+ E8S/JubB4qwdUtcQoJ5pwTSnTLamt0vqE3768-87-46 T15:24:00 [facility] ([facility])Infectious Dis. Progress NoteREPORT#:[id number] REPORT STATUS: SignedDATE:09/04/22 TIME: 152 PATIENT: KARMA ROWLAND UNIT #: [id number]#: [id number] [address] AGE: 56 SEX: M ATTEND: Mj Vences [facility] AUTHOR: Merry Wolff MD * ALL edits [...] Pulse Resp B/P B/P Mean Pulse Ox CkK925/-09/04 97.5-98.1 80-92 16-18 128-159/65-79 85.6-104.5 96-100 Last Documented: Result Date Time Pulse Ox 99 09/04 0718 B/P 133/69 09/04 0618 B/P Mean 90.3 09/04 07 O2 Delivery Room air 09/04 07 Temp 97.5 09/04 07 Pulse 80 09/04 0718 Resp 18 09/04 [...] right BKA Left foot wound +dressing in placeNeuro/CONTRACT RUNNER: alert, oriented X 3 Considered stroke alert: noSkin: dry, intact ResultsFindings/Data:Laboratory Tests 09/04 09/04 09/04 09/03 09/03 1100 0816 0721 1943 1622 Chemistry POC Glucose (70 - 110 MG/DL) 107 99 87 124 H 135 H Laboratory Tests 09/04 09/04 1031 0540 Hematology Hgb (12.5 - 16.9 g/dL) 7.7 L 6.8 L Hct (37.5 - 50.7 %) 23.7 L 21.2 L Laboratory Tests 09/03 183 Toxicology Vancomycin Peak (30 - 40 MCG/ML) 27.4 L Laboratory Tests: 09/04 09/04 09/04 09/04 09/04 1100 1031 0816 0721 0540 Chemistry POC Glucose (70 - 110 MG/DL) 107 99 87 Hematology Hgb (12.5 - 16.9 g/dL) 7.7 L 6.8 L Hct (37.5 - 50.7 %) 23.7 L 21.2 L 09/036 1622 1233 1143 Chemistry POC Glucose (70 [...] % (Auto) (14.0 - 32.0 %) 15.1 [place] % (Auto) (4.8 - 9.0 %) 6.8 Eos % (Auto) (0.3 - 3.7 %) 2.3 Baso % (Auto) (0.0 - 2.0 %) 0.3 Neut # (Auto) (2.0 - 7.6 x10 3/uL) 6.51 Lymph # (Auto) (1.0 - 3.8 x10 3/uL) 1.31 [place] # (Auto) (0.1 - 0.8 x10 3/uL) [...] # (Man) (0.0 - 0.1 0.00x10 3/uL) 04/11 1732 Chemistry POC Glucose (70 - 110 [...] 09/04 Sodium Chloride 10 ML IV 09/13 2059 0814 Blood Formation,Coagulation Sig/Jan Start time Last [...] high-grade bacteremia.-TTE 08/18/2022 negative for any obvious vegetations.-4/6 neg-JIMENA 09/02 pending results*Prostatic abscess-s/p transrectal aspiration [...] on 09/04/22 at 1524 at 1700 RPT #:[id number] OF REPORTPRProgress qeab6651-97-99N95:24:00G.YOWT46066471-7970Z VAvailable for patient ftelDDMALQAUQALRPT3675-97-82Q40:02:20 [facility] 2022-09-04 15:13:00 [id number]+lfEP93BrAxuYwdZ0PMw2xha9kR2 n3Z d84/qEwK1MsI899msyW5Thk6F8ndzJ7zt0406-59-68 T15:13:00 [facility] ([facility])Pain Management Progress NoteREPORT#:[id number] REPORT STATUS: SignedDATE:09/04/22 TIME: 1512 PATIENT: KARMA ROWLAND UNIT #: [id number]#: [id number] [address] AGE: 56 SEX: M ATTEND: Mj Vences [facility] AUTHOR: Ben Klein * ALL edits or amendments must be made on the electronic/computer document * Ben Klein 09/04/22 1513:SubjectiveChief complaint:Patient seen and examined. Chart/MAR reviewed. Patient is working with physical therapy. Jeannie explaine to use the [place] more often to help with his BKA [...] Pulse Resp B/P B/P Mean Pulse Ox CrX779/12-09/04 36.4-36.7 80-92 16-18 128-159/65-79 85.6-104.5 96-100 Last Documented: Result Date Time Pulse Ox 99 09/04 0718 B/P 133/69 09/04 0718 B/P Mean 90.3 09/04 0718 O2 Delivery Room air 09/04 07 Temp 36.4 09/04 0718 Pulse 80 09/04 [...] bowel soundsExtremities: moves all, no edema, pedal pulsesNeuro/CONTRACT RUNNER: 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, no sensory deficits, CNII-XII [...] 6 hours as needed pain scale 1 3-[place] 10/325 1 tablet p.o. every 4 hours [...] whom agrees. Thank you for the consultation. 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 I personally developed the care plan, which was continued by the mid-level provider. I was immediately available. at 1526 at 0656 RPT #:[id number] OF REPORTPRProgress ebhb4922-26-82Q49:13:00G.MDKV50462477-1216Y VAvailable for patient zfbiPJYSHXKZJEWFBI3061-40-43A45:29:46 [facility] 2022-09-04 12:35:00 [id number]+Yna6vAHBvLFP3nDGu7kyHl IE8 MvFQT5FQVOYkYS+JNAxnDIYqvckaIuyKt6276-35-07 T12:35:00 [facility] ([facility])Pharmacy Prog.Note-VancomycinREPORT#:[id number] REPORT STATUS: SignedDATE:09/04/22 TIME: 1235 PATIENT: KARMA ROWLAND UNIT #: [id number]#: [id number] [address] AGE: 56 SEX: M ATTEND: Mj Vences [facility] AUTHOR: Wilian Jasso [facility] * ALL edits or amendments must be made on the electronic/computer document * Vancomycin Vancomycin Medication TherapyGoal: AUC 400-600 mg*hr/LIndication for treatment:OM and MRSA BacteremiaCurrent therapy:vanc 1 g IV Q24HVS and I/O:Vital SignsDate Temp Pulse Resp B/P B/P Mean Pulse Ox SaG180/-09/04 97.3-99.1 80-92 16-18 116-164/50-85 72.3-111.0 94-100 72 [...] 400-600 mcg*hr/ml A/P 09/03:* Pt transferred from [facility] to [facility]. * Afebrile, WBC 8.7 * 09/03 [...] Thanks for the consult. at 1237 RPT #:[id number] OF REPORTPRProgress mcrw9935-18-40V27:35:00G.VNDR22989208-8609X VAvailable for patient ocnwYQOPDWHQYGMXBI3363-48-26I95:38:09 [facility] 2022-09-04 10:37:00 [id number]/Azx88mjUgdly 8Kt Nmvjt61lJRPfGYrV0L3bzDEehzmTrOZ6q5116-78-12 T10:37:00 [facility] ([facility])Cardiology Progress NoteREPORT#:[id number] REPORT STATUS: SignedDATE:09/04/22 TIME: 1037 PATIENT: KARMA ROWLAND UNIT #: [id number]#: [id number] [address] AGE: 56 SEX: M ATTEND: Mj Vences MDADM AUTHOR: Rohit Benitez MACHINIST APPRENTICE WOOD * ALL edits or amendments must be [...] soft, non-tenderLower extremity: LE assessment: edema, normal temperatureNeuro/CONTRACT RUNNER: alert, oriented X 3 Considered stroke alert: [...] Will follow. at 1831 at 1637 RPT #:[id number] OF REPORTPRProgress jzsj6038-41-55R83:37:00G.SRCQ58006101-1516Y VAvailable for patient bwonJPKHSADVFHKSNI6572-38-13V39:31:43 [facility] 2022-09-04 10:31:00 [id number]+HIKfdK9IPveFELIUW8rrfgFB 82i YUSKBr1lo4HTJ6gQp0pZpVIqipnEnZY5/2022-09-04 T10:31:00 [facility] Progress NoteREPORT#:[id number] REPORT STATUS: SignedDATE:09/04/22 TIME: 1031 PATIENT: KARMA ROWLAND UNIT #: [id number]#: [id number] [address] AGE: 56 SEX: M ATTEND: [...] general: BUE 5/5, LLE 4/5, R hip 3-Neuro/CONTRACT RUNNER: alert, oriented X 3, CNII-XII intact ResultsFindings/Data:Laboratory [...] % (Auto) (14.0 - 32.0 %) 15.1 [place] % (Auto) (4.8 - 9.0 %) 6.8 Eos % (Auto) (0.3 - 3.7 %) 2.3 Baso % (Auto) (0.0 - 2.0 %) 0.3 Neut # (Auto) (2.0 - 7.6 x10 3/uL) 6.51 Lymph # (Auto) (1.0 - 3.8 x10 3/uL) 1.31 [place] # (Auto) (0.1 - 0.8 x10 3/uL) [...] to left heel/DTI dorsal left midfootProstatic abscess /4: S/p transrectal ultrasound aspiration of abscess and [...] units of PRBCs on acute, check FOBT-Right AJP-rfnatkx-xavxuqgn resolved, dressings changed qufmn-huxuykl-zhrksquk cWB-IRPV-XVOZ OF NARES on Bactroban rengxwly-Ermzhfvwcexq-kktxspxqa fullness-check KUB-add Senokot and MiraLAX, DSP-Advance therapies as tolerated-Patient benefiting from therapies and improving mobility and strength, requiresmax assist for transfers due to weakness and amputation Progress: PATIENT WORKED ON BED MOB, ABLE TO SIT UP EOB WITH MIN A, TRANSFERS TO WITH MAX A KEEPING RLE NWB. FLOT [...] with interdisciplinary treatment plan. at 1524 RPT #:[id number] OF REPORTPRProgress fxkw7608-63-81F33:31:00G.AFUG89621301-1963B VAvailable for patient yaifRJLMSADFXJBAFV1209-29-90S69:26:26 [facility] 2022-09-04 09:02:00 [id number]U0l0Oabs A9K Ql7CgaVRZL95duONlaCkw8nnpTS8UFLP90586-24-05 T09:02:00 [facility]Hospital[facility] Progress NoteREPORT#:[id number] REPORT STATUS: SignedDATE:09/04/22 TIME: 0902 PATIENT: KARMA ROWLAND UNIT #: [id number]#: [id number] [address] AGE: 56 SEX: M ATTEND: Mj Vences [facility] AUTHOR: Wilbert Ramires MD * ALL edits [...] capillary refillMusculoskeletal: normal inspection, painless range of motionNeuro/CONTRACT RUNNER: alert, oriented X 3, 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 Considered [...] with supportive / care at 1105 RPT #:[id number] OF REPORTPRProgress uhtw2537-31-00O71:02:00G.FSNB94746705-7937B VAvailable for patient maczFDCTGOJYQZBHYB2340-61-23Z57:06:01 [facility] 2022-09-04 08:56:00 [id number]/wKFyRrA2mJYp b85 744/JFynYp+AzJYZmTRG/RBEirW/jK+TJ6173-59-99 T08:56:665670-4821 [place] [address] PATIENT NAME: KARMA ROWLAND ADMIT DATE: 08/18/22ACCOUNT NO: [id number] ROOM NO: [facility] AGE: 56 REPORT TYPE: eTRANSESOPHAGEAL ECHO REPORT SEX: M ADMITTING PHYSICIAN:Wilbert Ramires MD ATTENDING PHYSICIAN:Wilbert Ramires MD *[place], [place] [address]Phone: Ekd: [phone] Transesophageal Echocardiogram Patient: Consuelo Rowlandudjyotsna Date: 09/02/2022 BP: 138 / 65 Location: [facility]: [id number] : 1965 Age: 56 Height: 66 in / 167.6 cmAccession#: [id number] Gender: M Weight: 153.7 lb / 69.9 kgBMI/BSA: 24.9 kg/m 2 / 1.79 m 2 *Ordering Physician: * Rohit Benitez *Interpreting Physician: * Napoleon Parham MD*Entry Level Electrical Engineer: * Sarah aLm Indications: Endocarditis Acute/subacute bacterial. Study data: Consent: The risks, benefits, and alternatives to theprocedure were explained to the patient and informed consent wasobtained. Procedure: Initial setup: [facility].Intravenous access was obtained. SurfaceECG leads and pulse oximetric signals were monitored. Sedation. Moderatesedation was administered by cardiology staff. Transesophagealechocardiography was performed. Topical anesthesia was obtained usingbenzocaine spray. A transesophageal probe (SN: [id number]) was inserted bythe attending assistant therapy aide without difficulty. Images were obtainedusing a Cortica cardiac ultrasound machine. Image quality was adequate. Thetransesophageal probe was removed. Limited 2D, limited spectralDoppler, and color Doppler. Location: [facility]. Patient status:Inpatient. Patient room number: [facility]. Study status: Routine. Studycompletion: The patient tolerated [...] 08:56 at 0856 PATIENT NAME: KARMA ROWLAND bthnupw3646-37-19R77:56:00G.ZWM35665384-096 1AVAvailable for patient bljbBYEBIGPOXQMDRS3490-78-61J07:57:14 [facility] 2022-09-04 07:49:00 [id number]/+BaS/i3 nax tuTqO3S8b1/FN35eh/fYyzI/gB1rp3vfe4521-34-47 T07:49:00 [facility])Podiatry Progress NoteREPORT#:[id number] REPORT STATUS: SignedDATE:09/04/22 TIME: 0749 PATIENT: KARMA ROWLAND UNIT #: [id number]#: [id number] [address] AGE: 56 SEX: M ATTEND: Mj Vences [facility] AUTHOR: Liam Pedersen DPM * ALL edits [...] A1C >14Nutrition prescription: CONTINUE DM DIETDietitian name: Whitfieldaudrey Chapmanrand, DIETAssessment completed: 09/03/22 Physical ExamGeneral appearance: alert, [...] hospitalist, infectious disease, podiatry at 0750 RPT #:[id number] OF REPORTPRProgress witq4050-31-98E85:49:00G.NFBF00029845-6762X VAvailable for patient liwxQOFWTFBIHBILRG2095-79-20Q10:51:12 [facility] 2022-09-03 20:06:00 [id number]YMOfVSYm7rB s3z cszIDbKIlOfHCWfYXB5j7DAWOipj6sowv0418-23-70 T20:06:00 [facility])Podiatry Consult NoteREPORT#:[id number] REPORT STATUS: SignedDATE:09/03/22 TIME: 2005 PATIENT: KARMA ROWLAND UNIT #: [id number]#: [id number] [address] AGE: 56 SEX: M ATTEND: [...] Documented: Result Date Time Pulse Ox 97 04/12 1920 B/P 154/79 04/12 1920 B/P Mean 103.6 09/04 1919 Temp 36.7 [...] % (Auto) (14.0 - 32.0 %) 15.1 [place] % (Auto) (4.8 - 9.0 %) 6.8 Eos % (Auto) (0.3 - 3.7 %) 2.3 Baso % (Auto) (0.0 - 2.0 %) 0.3 Neut # (Auto) (2.0 - 7.6 x10 3/uL) 6.51 Lymph # (Auto) (1.0 - 3.8 x10 3/uL) 1.31 [place] # (Auto) (0.1 - 0.8 x10 3/uL) [...] hospitalist, infectious disease, podiatry at 2015 RPT #:[id number] OF REPORTKMWbdcbtblwiqp9919-24-55M85:06:00G .RGQX48570929-5892LKManmbvari for patient klpyUQVGHHXPBTRNXM2393-96-81Q12:16:29 [facility] 2022-09-03 15:03:00 [id number]ffZ9 u+s HSODk/nQrObWKRhC4+2WhuVDg4T/iHBUZ0461-13-07 T15:03:154364-5763 [place] [id number] PATIENT NAME: KARMA ROWLAND ADMIT DATE: 09/02/22ACCOUNT NO: [id number] ROOM NO: [facility] AGE: 56 REPORT TYPE: CONSULTATION REPORT SEX: [...] 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 The stump [...] PATIENT NAME: KARMA ROWLAND Date Transcribed: 09/03/2022 15:14:17KK/Agustin #: [id number] ID: [id number] by Logan Chapin MD On 09/03/2022 08:07:20 PM at 0807 PATIENT NAME: KARMA ROWLAND :14: 00G.ZYX77506540-4818UBPzlrxoafm for patient gumaPDUXAXICEYLDIR9837-55-74A21:07:47 [facility] 2022-09-03 14:45:00 [id number]/nIH3ONWNKGIkd/ZRJO8VoBR 1fk Coleman/bQSYMhWuYgJ6FkDGg2d6vbBp8QRxf4482-30-99 T14:45:00 [facility]Hospital[facility] ConsultationREPORT#:[id number] REPORT STATUS: SignedDATE:09/03/22 TIME: 1445 PATIENT: KARMA ROWLAND UNIT #: [id number]#: [id number] [address] AGE: 56 SEX: M ATTEND: Mj Vences MDADM AUTHOR: Tessie Junior * ALL edits or amendments must be made on the electronic/computer document * History of Present IllnessReason for consult:Medical ManagementChief complaint:admitted to rehabPCP:PCP: No Primary or Family Physician HPI: Leon 56 yo male with long h/o DM, [...] Temp 97.3 09/03 700 Pulse 84 09/03 07 Resp 16 09/03 700 O2 Delivery Room air 09/03 0018 24 hour I O ending at 0700: 09/03 0700 04/11 1900 Intake Total 240 Output [...] capillary refillMusculoskeletal: normal inspection, painless range of motionNeuro/CONTRACT RUNNER: alert, oriented X 3, 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 Considered [...] with supportive / care at 2154 RPT #:[id number] OF REPORTGXBguodtvxnkcv7899-83-82K17:45:00G .CWVZ78540160-3502BPQzmewfhmq for patient junyFQMBAMYKYGLELQ5041-63-22H02:55:06 [facility] 2022-09-03 14:27:00 P00232077679z2g6O2ESqQ2hecRcd+sCHw24ulOR NUl luGVpkgYCSM4JrMSqrg8rlD78BaRhue0B6042-04-93 T14:27:00 [facility] ([facility])Infectious Dis. Progress NoteREPORT#:[id number] REPORT STATUS: SignedDATE:09/03/22 TIME: 1427 PATIENT: KARMA ROWLAND UNIT #: [id number]#: [id number] ROOM/BED: [facility] [place]DOB: [birth year] AGE: 56 SEX: M ATTEND: Mj Vences [facility] AUTHOR: Merry Wolff MD * ALL edits [...] Pulse Resp B/P B/P Mean Pulse Ox ZeY141/11-09/03 97.3-99.1 81-87 16-17 116-164/50-85 72.3-111.0 94-100 Last Documented: Result Date Time Pulse Ox 100 09/03 0701 B/P 118/65 09/03 0701 B/P Mean 82.6 09/03 700 Temp 97.3 09/03 700 Pulse 84 09/03 07 Resp 16 09/03 700 O2 Delivery Room air 09/03 0018 Vital Signs: Date Time Temp Pulse Resp B/P B/P Pulse O2 O2 Flow FiO2 Mean Ox Delivery Rate 09/03 700 97.3 84 16 118/65 82.6 100 09/03 [...] right BKA Left foot wound +dressing in placeNeuro/CONTRACT RUNNER: alert, oriented X 3Skin: dry, intact ResultsFindings/Data:Laboratory [...] - 40.0 mg/dL) < 5.0 L 09/02 09/02 09/02 09/02 1929 1908 1732 [...] % (Auto) (14.0 - 32.0 %) 15.1 [place] % (Auto) (4.8 - 9.0 %) 6.8 Eos % (Auto) (0.3 - 3.7 %) 2.3 Baso % (Auto) (0.0 - 2.0 %) 0.3 Neut # (Auto) (2.0 - 7.6 x10 3/uL) 6.51 Lymph # (Auto) (1.0 - 3.8 x10 3/uL) 1.31 [place] # (Auto) (0.1 - 0.8 x10 3/uL) [...] % (Auto) (14.0 - 32.0 %) 15.1 [place] % (Auto) (4.8 - 9.0 %) 6.8 Eos % (Auto) (0.3 - 3.7 %) 2.3 Baso % (Auto) (0.0 - 2.0 %) 0.3 Neut # (Auto) (2.0 - 7.6 x10 3/uL) 6.51 Lymph # (Auto) (1.0 - 3.8 x10 3/uL) 1.31 [place] # (Auto) (0.1 - 0.8 x10 3/uL) [...] Q8HR 09/02 2200 CKD 09/03 SUBQ 10/02 215 0458 Cardiovascular Drugs Sig/Jan Start time Last [...] AC HS 09/02 2100 AC SUBQ 10/02 2058 Glucagon 1 MG ASDIR PRN 09/01 1330 [...] on 09/03/22 at 1501 at 2013 RPT #:[id number] OF REPORTPRProgress iffx2471-01-52E91:27:00G.AFVP93946390-1377R VAvailable for patient eqcrSNEPFHTHUYWBYB3660-84-95B60:15:18 [facility] 2022-09-03 11:38:00 [id number]vUiW x5W R6+jGJXScvAd9d5+Iln4/WzEC7O3j4mBQ5142-70-45 T11:38:00 [facility] Prog.Note-VancomycinREPORT#:[id number] REPORT STATUS: SignedDATE:09/03/22 TIME: 1138 PATIENT: KARMA ROWLAND UNIT #: [id number]#: [id number] [address] AGE: 56 SEX: M ATTEND: Mj Vences [facility] AUTHOR: Wilian Jasso [facility] * ALL edits or amendments must be made on the electronic/computer document * Vancomycin Vancomycin Medication TherapyGoal: AUC 400-600 mg*hr/LIndication for treatment:OM and MRSA Bacteremia Current therapy:vanc 1 g IV Q24HVS and I/O:Vital SignsDate Temp Pulse Resp B/P B/P Mean Pulse Ox EfR789/-09/03 97.3-99.1 81-87 16-17 116-164/50-85 72.3-111.0 94-100 72 hours ending at 0700 09/03 0700 09/02 1900 09/02 0709/01 1900 09/01 08/31 0700 1900Intake 240TotalOutput 850TotalBalance -610 Intake, 240OralNumber 0IncontinentVoidsNumber 1VoidsOutput, 850Urine 72 Hour I O Total 09/03 0700 09/02 0700 09/01 0700 Intake Total 240 Output Total 850 Balance -610 Labs:Laboratory Test : 09/03 414 Chemistry BUN (7 - 18 mg/dL) 22 H Creatinine (0.6 - 1.3 mg/dL) 1.1 Hematology WBC (4.5 - 11.0 x10 3/uL) 8.7 Microbiology:09/03 0415 NASAL: MRSA DNA Surveillance Screen - RECD [...] 400-600 mcg*hr/ml A/P 09/03:* Pt transferred from [facility] to [facility]. D/w RN to enter weight. Weight [...] Thanks for the consult. at 1159 RPT #:[id number] OF REPORTPRProgress rapj0044-64-35N96:38:00G.EDBX62747438-9040K VAvailable for patient hkruBRSQSIGJSZYDRJ8274-28-77Y62:02:33 [facility] 2022-09-03 11:21:00 [id number]WYAK U6W VDXH8berGNcWSNFWI/XlsctjbUd5z99Lj6575-69-90 T11:21:00 [facility] HospitalCard[facility] Progress NoteREPORT#:[id number] REPORT STATUS: SignedDATE:09/03/22 TIME: 1121 PATIENT: KARMA ROWLAND UNIT #: [id number]#: [id number] [address] AGE: 56 SEX: M ATTEND: Mj Vences [facility] AUTHOR: Rohit Benitez MACHINIST APPRENTICE WOOD * ALL edits or amendments must be [...] non-tenderLower extremity: LE assessment: normal temperature, no edemaNeuro/CONTRACT RUNNER: alert, oriented X 3Wound/incision: Location:right bkaPsychiatry: normal [...] % (Auto) (14.0 - 32.0 %) 15.1 [place] % (Auto) (4.8 - 9.0 %) 6.8 Eos % (Auto) (0.3 - 3.7 %) 2.3 Baso % (Auto) (0.0 - 2.0 %) 0.3 Neut # (Auto) (2.0 - 7.6 x10 3/uL) 6.51 Lymph # (Auto) (1.0 - 3.8 x10 3/uL) 1.31 [place] # (Auto) (0.1 - 0.8 x10 3/uL) [...] Will follow. at 2019 at 1637 RPT #:[id number] OF REPORTPRProgress gbxd2059-09-88E88:21:00G.[id number] VAvailable for patient jxerRSMZGBPQOCBIRB6831-98-86I87:19:19 [facility] 2022-09-03 11:21:00 [id number] top mZOusWR+qF10HOkSsvpotjhxoC8RaNKHM7326-68-35 T11:21:00 [facility] ([facility])Pain Management Consult NoteREPORT#:[id number] REPORT STATUS: SignedDATE:09/03/22 TIME: 1121 PATIENT: KARMA ROWLAND UNIT #: [id number]#: [id number] [address] AGE: 56 SEX: M ATTEND: Mj Vences AUTHOR: Ben Klein PA * ALL edits [...] 09/02 2100 AC 09/03 (MAXIPIME) IV 09/13 2058 0809 Sodium Chloride 10 ML (SODIUM CHLORIDE) [...] BEDTIME 09/02 2100 CKD 09/02 (Lantus/Semglee) SUBQ 10/020 Insulin Human Lispro 0 AC HS 09/02 2100 AC (HUMALOG) SUBQ 10/02 2058 Glucagon 1 MG ASDIR PRN 09/01 1330 AC (GLUCAGON) IM 10/01 1329 Local Anesthetics (Parenteral) Sig/Jan Start time Last Medication Dose Route Stop Time Status Admin Lidocaine 1 PATCH DAILY 09/03 09 AC 09/03 (LIDODERM) TOPICAL 10/03 0859 0810 Allergies:Coded Allergies:No Known Allergies (03/23/11) Objective Physical ExamVS/I O:Last Documented: Result Date Time Pulse Ox 100 09/03 700 B/P 118/65 09/03 700 B/P Mean 82.6 09/03 700 Temp 36.3 09/03 700 Pulse 84 09/03 700 Resp 16 09/03 700 O2 Delivery Room air 09/03 0018 24 hour I O ending at 0700: 09/03 1900 Intake Total 240 Output Total 850 [...] % (Auto) (14.0 - 32.0 %) 15.1 [place] % (Auto) (4.8 - 9.0 %) 6.8 Eos % (Auto) (0.3 - 3.7 %) 2.3 Baso % (Auto) (0.0 - 2.0 %) 0.3 Neut # (Auto) (2.0 - 7.6 x10 3/uL) 6.51 Lymph # (Auto) (1.0 - 3.8 x10 3/uL) 1.31 [place] # (Auto) (0.1 - 0.8 x10 3/uL) [...] - 0.1 x10 3/uL) 0.00 09/02 09/02 5378 1513 Chemistry POC Glucose (70 - 110 MG/DL) 102 257 H Microbiology: Date/Time Procedure - Status Source Growth 09/03 1425 MRSA DNA Surveillance Screen - RECD NASAL [...] 6 hours as needed pain scale 1 3-[place] 10/325 1 tablet p.o. every 4 hours as needed pain scale 4 10-Dilaudid 1 mg IV every 6 hours as needed pain scale 7 10, second line therapy-patient will require close monitoring while using IV narcotics for any deleterious effect-Lidoderm patch to left ankle daily-IV antibiotics with vancomycin until 09-24-2022-Local wound care Uncontrolled diabetes, diabetes with complications, [...] whom agrees. Thank you for the consultation. 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 I personally developed the care plan, which was continued by the mid-level provider. I was immediately available. at 2048 at 3210 RPT #:[id number] OF REPORTKSYgvfutqboabm2155-25-89F90:21:00G .[id number] for patient rmvwDPAQMVJNTKYZWE2438-87-29Q54:48:51 [facility] 2022-09-03 08:22:00 [id number]+ [facility] xr1PZ/jRxSr2ioNyt7grbUbri1y/IUduX3247-79-34 T08:22:00 [facility] POCREPORT#:[id number] REPORT STATUS: SignedDATE:09/03/22 TIME: 821 PATIENT: KARMA ROWLAND UNIT #: [id number]#: [id number] [address] [birth year] AGE: 56 SEX: M ATTEND: [...] Med cond/safety concern object discharge goal: CARE [place] 50 feet Independent (6) with two turns discharge goal: CARE [place] 150 Independent (6) feet discharge goal: CARE [...] function goal: PATIENT WILL REGAIN BLADDER CONTROL __ ELOS Attestation:Based upon the review of clinical [...] Hospitalist consult, VTE Risk at 0545 RPT #:[id number] OF REPORTCLClinical vbpa1020-67-15G04:22:00G.GEAS57112802-2191H VAvailable for patient yrdkGTIAXJZTVYDYPR1993-93-94A63:46:21 [facility] 2022-09-03 04:56:00 [id number]Swxi 03A VmpUBS4r3Vu286zYAZc50hIVaZBfC+EtL5400-60-93 T04:56:00 [facility] ([facility])Rehab History PhysicalREPORT#:[id number] REPORT STATUS: SignedDATE:09/03/22 TIME: 455 PATIENT: KARMA ROWLAND UNIT #: [id number]#: [id number] [address] AGE: 56 SEX: M ATTEND: [facility]ences [facility] AUTHOR: Guero Candelaria * ALL edits or amendments must be made on the electronic/computer document * See AddendumGuero aCndelaria 09/03/22 0456:HPI HPIHPI:56 yo HAM with long [...] Temp 97.3 09/03 700 Pulse 84 09/03 07 Resp 16 09/03 700 O2 Delivery Room [...] general: BUE 5/5, LLE 4/5, R hip 3-Neuro/CONTRACT RUNNER: alert, oriented X 3, CNII-XII intact ResultsFindings/Data:Laboratory [...] % (Auto) (14.0 - 32.0 %) 15.1 [place] % (Auto) (4.8 - 9.0 %) 6.8 Eos % (Auto) (0.3 - 3.7 %) 2.3 Baso % (Auto) (0.0 - 2.0 %) 0.3 Neut # (Auto) (2.0 - 7.6 x10 3/uL) 6.51 Lymph # (Auto) (1.0 - 3.8 x10 3/uL) 1.31 [place] # (Auto) (0.1 - 0.8 x10 3/uL) [...] hematomaEdema and clinical arthritis left ankleProstatic abscess /4: S/p transrectal ultrasound aspiration of abscess and [...] Rehab Attestation NOTE Attestation is for MD onlyComplex acute rehab needs: Custom therapy tx plan, Mgt of complex Co-morb, Med adjustment/mgmt., New medical diagnosis, Postsurgery req mgt/care, Nutritional compromise, Hospitalist consult, VTE Risk Mj Vences 09/03/22 0820:HPI HPI NOTE Document ONLY ONE [...] Rehab Attestation NOTE Attestation is for MD onlyRehab attestation:Based upon my evaluation, the patient's medical [...] at 0822 at 1047 Addendum 1: 09/03/22 08 by Mj Vences MD Correction:Impairment group: amputation of limb NOTE Document ONLY ONE Impairment Group Amputation of limb: unilateral lower limb (R BKA)Etiologic diagnosis:Gas gangrene of right foot andankle S/P R BKA at 0826 RPT #:[id number] OF REPORTHPHistory and physical rmmwnvcluqm2868-12-31N51:56:00G.FFQV3305243 2-0032AVAvailable for patient qqcmEPOHWGAGXCPTIP1152-86-86C81:22:17 [facility] 2022-09-02 15:11:00 [id number]+PRZaCYVPI5E1tf5wbXIGA+ nIw VHgSpZnnR376J9ajKYn0PurKU8Cy5JW+y1434-93-37 T15:11:00 [facility] ([facility])Endocrinology Progress NoteREPORT#:[id number] REPORT STATUS: SignedDATE:09/02/22 TIME: 1511 PATIENT: KARMA ROWLAND UNIT #: [id number]#: [id number] [place] [facility] [place]: [birth year] AGE: 56 SEX: M ATTEND: Wilbert Ramires [facility] AUTHOR: Braxton Chapin MD * ALL edits or amendments must be made on the electronic/computer document * SubjectivePatient reports: no complaints Objective GeneralVS:Last Documented: Result Date Time Pulse Ox 100 09/02 1244 B/P 149/70 09/02 1244 O2 Delivery Nasal cannula 09/02 1244 O2 Flow Rate 2 09/02 1244 Pulse 79 09/02 1244 Resp 18 09/02 1244 B/P Mean 0.0 09/02 0520 Temp 36.4 09/02 0520 PATIENT WEIGHT: Weight (lb): 154Weight (oz): 5.18Weight [...] % (Auto) (14.0 - 32.0 %) 16.8 [place] % (Auto) (4.8 - 9.0 %) 4.8 Eos % (Auto) (0.3 - 3.7 %) 1.6 Baso % (Auto) (0.0 - 2.0 %) 0.2 Neut # (Auto) (2.0 - 7.6 x10 3/uL) 6.63 Lymph # (Auto) (1.0 - 3.8 x10 3/uL) 1.46 [place] # (Auto) (0.1 - 0.8 x10 3/uL) [...] (Auto) (14.0 - 32.0 %) 13.4 L [place] % (Auto) (4.8 - 9.0 %) 6.3 Eos % (Auto) (0.3 - 3.7 %) 0.8 Baso % (Auto) (0.0 - 2.0 %) 0.2 Neut # (Auto) (2.0 - 7.6 x10 3/uL) 9.96 H Lymph # (Auto) (1.0 - 3.8 x10 3/uL) 1.69 [place] # (Auto) (0.1 - 0.8 x10 3/uL) [...] (Auto) (14.0 - 32.0 %) 10.0 L [place] % (Auto) (4.8 - 9.0 %) 5.6 Eos % (Auto) (0.3 - 3.7 %) 0.5 Baso % (Auto) (0.0 - 2.0 %) 0.1 Neut # (Auto) (2.0 - 7.6 x10 3/uL) 11.78 H Lymph # (Auto) (1.0 - 3.8 x10 3/uL) 1.42 [place] # (Auto) (0.1 - 0.8 x10 3/uL) [...] (Auto) (14.0 - 32.0 %) 8.2 L [place] % (Auto) (4.8 - 9.0 %) 4.1 L Eos % (Auto) (0.3 - 3.7 %) 0.4 Baso % (Auto) (0.0 - 2.0 %) 0.1 Neut # (Auto) (2.0 - 7.6 x10 3/uL) 11.92 H Lymph # (Auto) (1.0 - 3.8 x10 3/uL) 1.13 [place] # (Auto) (0.1 - 0.8 x10 3/uL) [...] (Auto) (14.0 - 32.0 %) 7.0 L [place] % (Auto) (4.8 - 9.0 %) 3.3 L Eos % (Auto) (0.3 - 3.7 %) 0.3 Baso % (Auto) (0.0 - 2.0 %) 0.1 Neut # (Auto) (2.0 - 7.6 x10 3/uL) 14.14 H Lymph # (Auto) (1.0 - 3.8 x10 3/uL) 1.11 [place] # (Auto) (0.1 - 0.8 x10 3/uL) [...] (Auto) (14.0 - 32.0 %) 7.4 L [place] % (Auto) (4.8 - 9.0 %) 3.9 L Eos % (Auto) (0.3 - 3.7 %) 0.5 Baso % (Auto) (0.0 - 2.0 %) 0.1 Neut # (Auto) (2.0 - 7.6 x10 3/uL) 15.49 H Lymph # (Auto) (1.0 - 3.8 x10 3/uL) 1.31 [place] # (Auto) (0.1 - 0.8 x10 3/uL) [...] pH (5.0 - 7.0) 5.0 Ur Specific [place] (1.005 - 1.030) 1.012 Urine Protein (NEGATIVE) [...] (Auto) (14.0 - 32.0 %) 8.1 L [place] % (Auto) (4.8 - 9.0 %) 4.3 L Eos % (Auto) (0.3 - 3.7 %) 0.5 Baso % (Auto) (0.0 - 2.0 %) 0.1 Neut # (Auto) (2.0 - 7.6 x10 3/uL) 15.44 H Lymph # (Auto) (1.0 - 3.8 x10 3/uL) 1.45 [place] # (Auto) (0.1 - 0.8 x10 3/uL) [...] (Auto) (14.0 - 32.0 %) 4.8 L [place] % (Auto) (4.8 - 9.0 %) 2.9 L Eos % (Auto) (0.3 - 3.7 %) 0.0 L Baso % (Auto) (0.0 - 2.0 %) 0.2 Neut # (Auto) (2.0 - 7.6 x10 3/uL) 19.90 H Lymph # (Auto) (1.0 - 3.8 x10 3/uL) 1.10 [place] # (Auto) (0.1 - 0.8 x10 3/uL) [...] (Auto) (14.0 - 32.0 %) 3.8 L [place] % (Auto) (4.8 - 9.0 %) 3.7 L Eos % (Auto) (0.3 - 3.7 %) 0.0 L Baso % (Auto) (0.0 - 2.0 %) 0.3 Neut # (Auto) (2.0 - 7.6 x10 3/uL) 17.97 H Lymph # (Auto) (1.0 - 3.8 x10 3/uL) 0.76 L [place] # (Auto) (0.1 - 0.8 x10 3/uL) [...] pH (5.0 - 7.0) 5.0 Ur Specific [place] (1.005 - 1.030) 1.013 Urine Protein (NEGATIVE) [...] (Auto) (14.0 - 32.0 %) 4.3 L [place] % (Auto) (4.8 - 9.0 %) 3.1 L Eos % (Auto) (0.3 - 3.7 %) 0.0 L Baso % (Auto) (0.0 - 2.0 %) 0.3 Neut # (Auto) (2.0 - 7.6 x10 3/uL) 19.17 H Lymph # (Auto) (1.0 - 3.8 x10 3/uL) 0.91 L [place] # (Auto) (0.1 - 0.8 x10 3/uL) [...] Stain - RES ABSCESS Recent Impressions:[facility] [place] UNI/LTD 08/19 0950 Report Impression - Status: [...] SCAN - CT ABD PELVIS W/CONT 08/18 7991 Report Impression - Status: SIGNED Entered: 08/18/2022 0513 IMPRESSION: 3.3 cm hypodensity in the left [...] IV antibiotics.S/P wound debridement. at 1513 RPT #:[id number] OF REPORTPRProgress gdjr1151-71-35F30:11:00G.SICG03825076-5766R VAvailable for patient ncioBRZFCAHDJCJBAK1831-73-87C95:13:24 [facility] 2022-09-02 14:20:00 [id number]+HPGSw85nnpiq+K3QiExbinwkHIP 42W t9+zSvFq3HV1ZJf+SEqVTKfHeNGEynvna6646-19-99 T14:20:00 [facility] Progress NoteREPORT#:[id number] REPORT STATUS: SignedDATE:09/02/22 TIME: 1420 PATIENT: KARMA ROWLAND UNIT #: [id number]#: [id number] [address] [birth year] AGE: 56 SEX: M ATTEND: [...] 2002 98.6 85 15 141/70 93 98 09/01 [...] distentionGenitourinary: no bladder distentionExtremities: R foot in dressingNeuro/CONTRACT RUNNER: alert, oriented X 3, 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 Considered [...] - will likely need wound vac and medical terminologist IV antibiotic therapy - d/w at bedside [...] on RAlabs pending- hyperkalemia yesterday -s/p kayexalate Q7Nmhqxbja with Vanc and Cefepine per IDNeeds JIMENA prior to discharge Cardiology on board. Approved to rehab, can transfer after JIMENA and BMP 09/02/22TEE today to r/o endocarditis, awaiting results- if (+), will need abx for 6 weeks endocarditisContinue with Vanc and Cefepine per ID, - through 09/24/22PICC line pendingWound care as directedGlycemia control- Endo on boardrepeat AM labsC/w PT/OTplan to transfer to [facility] afternoon at 1759 RPT #:[id number] OF REPORTPRProgress kfds1060-05-54P87:20:00G.KCKK27401239-9437I VAvailable for patient hoelCDDHJJBVQRCYTL4919-92-05F95:59:52 [facility] 2022-09-02 12:26:00 [id number]9314 LY1 6go6zUlNRZhoEx2jthcBRmwHUWLuNtgv31862-66-26 T12:26:00 [facility])Podiatry Progress NoteREPORT#:[id number] REPORT STATUS: SignedDATE:09/02/22 TIME: 1226 PATIENT: KARMA ROWLAND UNIT #: [id number]#: [id number] [address] [birth year] AGE: 56 SEX: M ATTEND: Wilbert Ramires [facility] AUTHOR: Liam Pedersen DPM * ALL edits [...] Documented: Result Date Time Pulse Ox 95 09/03 903 B/P 152/70 09/03 903 Pulse 81 09/03 903 B/P Mean 0.0 09/03 519 O2 Delivery Room air 09/03 519 Temp 36.4 09/03 519 Resp 17 09/03 519 O2 Flow Rate 7 08/28 1222 PATIENT [...] O:24 hour I O ending at 0700: 0411 0700 09/01 1900 Intake Total 240 Output [...] left anklevenous u/s left no dvt at 2109 RPT #:[id number] OF REPORTPRProgress kxug6594-36-27Q24:26:00G.EPSB01893952-8931T VAvailable for patient itawCZTCXGIVGWPSSE8641-54-53P50:10:14 [facility] 2022-09-02 10:35:00 [id number]oYwu xM3 TSHNF1G1icVhEOxm4ONDp2paB3vzFjKeh5806-24-59 T10:35:00 [facility]Card[facility] Progress NoteREPORT#:[id number] REPORT STATUS: SignedDATE:09/02/22 TIME: 1035 PATIENT: KARMA ROWLAND UNIT #: [id number]#: [id number] [place] [facility] [place]: [birth year] AGE: 56 SEX: M ATTEND: Wilbert Ramires MDA AUTHOR: Rohit Benitez 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 aPrham. 08/29: Patient doing well, blood pressure controlled, [...] care discussed with patient, RN and Dr. Parahm. 09/02: Plan for JIMENA today to rule out endocarditis. Vital signs stable. Currently in sinus rhythm by physical examination. Discharge planning for rehab. Supportive care. Plan of care discussed with patient, RN and Dr. Parham. Napoleon Parham 09/06/22 1631:Diagnosis, Assessment PlanAdditional comments:Patient was seen and examined at bedside, agree with above assessment and plan as documented by nurse practitioner with modifications. JIMENA negative for vegetation. Discussed with primary team and ID service. at 2023 at 1637 RPT #:[id number] OF REPORTPRProgress gskc4620-91-65A44:35:00G.JFPU34792089-8036J VAvailable for patient afuzVXTXVIOTLROPBT6563-60-07T41:23:53 [facility] 2022-09-02 06:18:00 [id number]/zCy9F/b3r03 WJQ MOLQJzZD32EIhH9I+ZrNCi7M6e98R07lZ5402-53-32 T06:18:00 [facility] ([facility])Rehab Progress NoteREPORT#:[id number] REPORT STATUS: SignedDATE:09/02/22 TIME: 617 PATIENT: KARMA ROWLAND UNIT #: [id number]#: [id number] [place] [facility] [place]: [birth year] AGE: 56 SEX: M ATTEND: Wilbert Ramires AUTHOR: Mj Vences MD * ALL edits or amendments must be made on the electronic/computer document * SubjectiveChief complaint:Rehab cezptm-zc-UDLQKjyyx wellIn bed, NADPatient going for TEEUrine is clearWife in roomDenies CARRASCO/N/V/D/CP14 systems reviewed and neg. except that above. [...] air 09/01 2200 84 133/65 90 100 04/10 2100 [...] non-tender, supple, no JVDCardiovascular: regular rate rhythm, S1/M1Woboxzrkesu: aerating well, clear bilaterally, clear to auscultationAbdomen: bowel sounds present, non-distended, softSkin: R BKA wrapped with kerlix and JOAN, removed incision healing well, some small blisters on distal limb, no erythema. DSGings replaced. Left foot/ankle wrappedMusculoskeletal - general: Musculoskeletal - general: MMT BUE 5/5, LLE 4/5, R hip 3-, R knee in maxine-techorthoticNeuro/CONTRACT RUNNER: alert, oriented X 3, CNII-XII intact ResultsFindings/Data:Laboratory [...] and would [facility] to stay here at [facility].-Patient approved for IRF. -Awaiting results of JIMENA-Urine clear-asked RN to DC CBI if okay with -Preadmission screen completed.-CIYXN-akucqyyf-Pjodge CBC Progress: Bed Mobility - Rolling: Minimal [...] 622 Active Rehab attestation:. at 1118 RPT #:[id number] OF REPORTPRProgress llyo4348-18-49Y58:18:00G.KGOO86171810-3575P VAvailable for patient zoohHXONJFBNZEJFMM3892-75-93E84:18:26 [facility] 2022-09-01 18:12:00 [id number]zGAh MKK Epa5Fol901JbqOagMdXk4UvebmVT6Cvak5198-06-31 T18:12:00 [facility])Endocrinology Progress NoteREPORT#:[id number] REPORT STATUS: SignedDATE:09/01/22 TIME: 1811 PATIENT: KARMA ROWLAND UNIT #: [id number]#: [id number] [address] AGE: 56 SEX: M ATTEND: Wilbert Ramires [facility] AUTHOR: Braxton Chapin MD * ALL edits [...] % (Auto) (14.0 - 32.0 %) 16.8 [place] % (Auto) (4.8 - 9.0 %) 4.8 Eos % (Auto) (0.3 - 3.7 %) 1.6 Baso % (Auto) (0.0 - 2.0 %) 0.2 Neut # (Auto) (2.0 - 7.6 x10 3/uL) 6.63 Lymph # (Auto) (1.0 - 3.8 x10 3/uL) 1.46 [place] # (Auto) (0.1 - 0.8 x10 3/uL) [...] 08/30 08/30 08/30 08/30 08/29 1651 1218 0878 9070 2011Chemistry Sodium (134 - 147 mEq/L) 136 [...] (Auto) (14.0 - 32.0 %) 13.4 L [place] % (Auto) (4.8 - 9.0 %) 6.3 Eos % (Auto) (0.3 - 3.7 %) 0.8 Baso % (Auto) (0.0 - 2.0 %) 0.2 Neut # (Auto) (2.0 - 7.6 x10 3/uL) 9.96 H Lymph # (Auto) (1.0 - 3.8 x10 3/uL) 1.69 [place] # (Auto) (0.1 - 0.8 x10 3/uL) [...] (Auto) (14.0 - 32.0 %) 10.0 L [place] % (Auto) (4.8 - 9.0 %) 5.6 Eos % (Auto) (0.3 - 3.7 %) 0.5 Baso % (Auto) (0.0 - 2.0 %) 0.1 Neut # (Auto) (2.0 - 7.6 x10 3/uL) 11.78 H Lymph # (Auto) (1.0 - 3.8 x10 3/uL) 1.42 [place] # (Auto) (0.1 - 0.8 x10 3/uL) [...] (Auto) (14.0 - 32.0 %) 8.2 L [place] % (Auto) (4.8 - 9.0 %) 4.1 L Eos % (Auto) (0.3 - 3.7 %) 0.4 Baso % (Auto) (0.0 - 2.0 %) 0.1 Neut # (Auto) (2.0 - 7.6 x10 3/uL) 11.92 H Lymph # (Auto) (1.0 - 3.8 x10 3/uL) 1.13 [place] # (Auto) (0.1 - 0.8 x10 3/uL) [...] (Auto) (14.0 - 32.0 %) 7.0 L [place] % (Auto) (4.8 - 9.0 %) 3.3 L Eos % (Auto) (0.3 - 3.7 %) 0.3 Baso % (Auto) (0.0 - 2.0 %) 0.1 Neut # (Auto) (2.0 - 7.6 x10 3/uL) 14.14 H Lymph # (Auto) (1.0 - 3.8 x10 3/uL) 1.11 [place] # (Auto) (0.1 - 0.8 x10 3/uL) [...] (Auto) (14.0 - 32.0 %) 7.4 L [place] % (Auto) (4.8 - 9.0 %) 3.9 L Eos % (Auto) (0.3 - 3.7 %) 0.5 Baso % (Auto) (0.0 - 2.0 %) 0.1 Neut # (Auto) (2.0 - 7.6 x10 3/uL) 15.49 H Lymph # (Auto) (1.0 - 3.8 x10 3/uL) 1.31 [place] # (Auto) (0.1 - 0.8 x10 3/uL) [...] pH (5.0 - 7.0) 5.0 Ur Specific [place] (1.005 - 1.030) 1.012 Urine Protein (NEGATIVE) [...] (Auto) (14.0 - 32.0 %) 8.1 L [place] % (Auto) (4.8 - 9.0 %) 4.3 L Eos % (Auto) (0.3 - 3.7 %) 0.5 Baso % (Auto) (0.0 - 2.0 %) 0.1 Neut # (Auto) (2.0 - 7.6 x10 3/uL) 15.44 H Lymph # (Auto) (1.0 - 3.8 x10 3/uL) 1.45 [place] # (Auto) (0.1 - 0.8 x10 3/uL) [...] 08/25 104 Blood Culture - RECD BLOOD 08/25 104 [...] (Auto) (14.0 - 32.0 %) 4.8 L [place] % (Auto) (4.8 - 9.0 %) 2.9 L Eos % (Auto) (0.3 - 3.7 %) 0.0 L Baso % (Auto) (0.0 - 2.0 %) 0.2 Neut # (Auto) (2.0 - 7.6 x10 3/uL) 19.90 H Lymph # (Auto) (1.0 - 3.8 x10 3/uL) 1.10 [place] # (Auto) (0.1 - 0.8 x10 3/uL) [...] %) 21.8 L 08/193 1 2014 172 1652Chemistry Sodium (134 - 147 [...] (Auto) (14.0 - 32.0 %) 3.8 L [place] % (Auto) (4.8 - 9.0 %) 3.7 L Eos % (Auto) (0.3 - 3.7 %) 0.0 L Baso % (Auto) (0.0 - 2.0 %) 0.3 Neut # (Auto) (2.0 - 7.6 x10 3/uL) 17.97 H Lymph # (Auto) (1.0 - 3.8 x10 3/uL) 0.76 L [place] # (Auto) (0.1 - 0.8 x10 3/uL) [...] pH (5.0 - 7.0) 5.0 Ur Specific [place] (1.005 - 1.030) 1.013 Urine Protein (NEGATIVE) [...] 1458 Blood Culture - ORD BLOOD 08/19 1710 Blood Culture - ORD BLOOD 08/19 1710 Blood Culture - ORD BLOOD 08/19 [...] L 08/19 08/19 08/19 08/19 0805 0737 1137 1045 Chemistry Sodium (134 - 147 mEq/L) 130 [...] (Auto) (14.0 - 32.0 %) 4.3 L [place] % (Auto) (4.8 - 9.0 %) 3.1 L Eos % (Auto) (0.3 - 3.7 %) 0.0 L Baso % (Auto) (0.0 - 2.0 %) 0.3 Neut # (Auto) (2.0 - 7.6 x10 3/uL) 19.17 H Lymph # (Auto) (1.0 - 3.8 x10 3/uL) 0.91 L [place] # (Auto) (0.1 - 0.8 x10 3/uL) [...] Stain - RES ABSCESS Recent Impressions:[facility] [place] UNI/LTD 08/19 0950 Report Impression - Status: [...] 020 Wound Culture - RECD FOOT 08/18 020 [...] SCAN - CT ABD PELVIS W/CONT 08/18 0337 Report Impression - Status: SIGNED Entered: 08/18/2022 [...] IV antibiotics.S/P wound debridement. at 1813 RPT #:[id number] OF REPORTPRProgress numa6495-55-27Y73:12:00G.RBBF67073598-1660S VAvailable for patient kkpcXJLLQBMYDZEMED8322-09-20V46:14:27 [facility] 2022-09-01 15:30:00 [id number]liM9 37l vRGBf86S/oB8/2shp+4LmD/aN85LYKfw83771-57-60 T15:30:00 [facility] Progress NoteREPORT#:[id number] REPORT STATUS: SignedDATE:09/01/22 TIME: 1530 PATIENT: KARMA ROWLAND UNIT #: [id number]#: [id number] [address] AGE: 56 SEX: M ATTEND: Wilbert Ramires MDADM AUTHOR: Liam PedersenM * ALL edits [...] Ox 99 09/01 110 B/P 141/67 09/01 1105 B/P Mean 0.0 09/01 1104 Temp 36.6 09/01 110 Pulse 86 09/01 [...] O:24 hour I O ending at 0700: 04/10 0700 04/09 1900 Intake Total 400 Output Total Balance [...] u/s left no dvt at 1532 RPT #:[id number] OF REPORTPRProgress xqbg9353-41-04O76:30:00G.BMXM65593149-5053H VAvailable for patient ndldKNOBIWMTNOTNFG9721-67-09Z02:32:41 [facility] 2022-09-01 12:15:00 [id number]/iLRyBLU6vVS2oqzHW3 lOf 2+cX/i17tryllv+uXQVn79JQmRTXA3Yvc5288-10-13 T12:15:00 [facility] ([facility])Infectious Dis. Progress NoteREPORT#:[id number] REPORT STATUS: SignedDATE:09/01/22 TIME: 1215 PATIENT: KARMA ROWLAND UNIT #: [id number]#: [id number] [address] AGE: 56 SEX: M ATTEND: Wilbert Ramires [facility] AUTHOR: Merry Wolff MD * ALL edits [...] afebrile, WBC down to 15.9 from 17.7, 4/6 Pt had right BKA today, afebrile, WBC 13.8 from 15.9 4/7 pt doing well, awake, alert, afebrile, family at bedside, states he only hasa little bit of pain 4/10 is in IMCU, doing well, afebrilePatient reports:No: [...] 1105 Pulse 86 09/01 1105 Resp 15 / 1105 O2 Delivery Room air 08/31 1929 O2 Flow Rate 7 04/ 1222 Vital Signs: Date Time Temp Pulse [...] 04/09 2000 92 14 167/77 111 99 08/31 1929 98.3 94 16 151/69 96 100 Room air 08/31 1900 96 151/69 99 98 08/31 1835 97 14 180/85 122 99 08/31 1804 15 08/31 1800 95 184/86 124 99 08/31 1620 97.5 95 16 195/88 0.0 99 08/31 1435 97.9 90 14 150/70 98 08/31 1430 98.1 89 14 147/69 98 08/31 1425 97.8 90 15 157/83 99 08/31 1419 98.3 90 14 155/68 90 24 [...] urinary catheter ( on CBI)Extremities: edema, right BKANeuro/CONTRACT RUNNER: alert, 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 Considered stroke alert: noSkin: lesions, no rashPsychiatry: normal affect, normal mood ResultsFindings/Data:Laboratory Tests 09/01 09/01 09/01 08/31 08/31 1104 0704 0345 1916 1618Chemistry POC Glucose (70 - 110 MG/DL) 118 H 145 H 176 H 163 H Total Creatine Kinase (46 - 171 79Units/L) 08/31 1240 Chemistry POC Glucose (70 - 110 MG/DL) 76 Laboratory Tests 04/09 1810 Hematology Hgb (12.5 - 16.9 g/dL) 9.1 L Hct (37.5 - 50.7 %) 28.2 L Laboratory Tests 09/02 851 Serology SARS-CoV-2 Ag (Rapid) (Negative) Negative Laboratory Tests: 09/01 09/01 09/01 09/01 08/31 1104 0852 0704 0345 1916Chemistry POC Glucose (70 - 110 MG/DL) 118 H 145 H 176 H Total Creatine Kinase (46 - 171 Units/L) 79Serology SARS-CoV-2 Ag (Rapid) (Negative) Negative 08/31 08/31 08/31 08/31 08/31 181 1618 1240 1203 0714 Chemistry POC Glucose [...] % (Auto) (14.0 - 32.0 %) 16.8 [place] % (Auto) (4.8 - 9.0 %) 4.8 Eos % (Auto) (0.3 - 3.7 %) 1.6 Baso % (Auto) (0.0 - 2.0 %) 0.2 Neut # (Auto) (2.0 - 7.6 x10 3/uL) 6.63 Lymph # (Auto) (1.0 - 3.8 x10 3/uL) 1.46 [place] # (Auto) (0.1 - 0.8 x10 3/uL) [...] BEDTIME 08/30 2100 AC 08/31 SUBQ 09/29 2058 203 Insulin Human Lispro 5 UNIT AC 08/30 729 AC 09/01 SUBQ 09/29 0729 0759 Insulin [...] days for treatment for prostate abscess til / Portions of this section were scribed by Jill Quintero on 09/01/22 at 1215 at 0819 RPT #:[id number] OF REPORTPRProgress [id number]:15:00G.[id number] VAvailable for patient ztgiRPGJSMJXBAKVKH7303-86-84U34:00:07 [facility] 2022-09-01 11:35:00 [id number]+TBF4L679hRgRAqJBI [facility] E08RKxxRfJnynflDzgqmVV7X/JdgR65fP7912-77-52 T11:35:00 [facility] Prog.Note-VancomycinREPORT#:[id number] REPORT STATUS: SignedDATE:09/01/22 TIME: 1135 PATIENT: KARMA ROWLAND UNIT #: [id number]#: [id number] [address] AGE: 56 SEX: M ATTEND: Wilbert Ramires [facility] AUTHOR: Willie Rivera [facility] * ALL edits or amendments [...] 72 hours ending at 0700 09/01 0708/31 1900 08/31 1900Intake 400 270.00 1020.00TotalOutput 500 750 4975TotalBalance [...] admin history: Lab Lab Level SCr Info Patch Machine Operator Med Dose Interaction/Dialysis Date/Time Date/Time Notes: Treatment [...] Addendum 1: 09/02/22 0840 by Willie Rivera [facility] afebrile, no CBC drawn today , SCR 1.2, eCrCl 61 ml/min. UOP 2075 ml/24hrs. Day 2. Initiated on 1gm vancomycin iv q24h. Trough prior to 4th dose. Possible transition to AUC if renal continues to be stable. at 0847 RPT #:[id number] OF REPORTPRProgress rlay5301-62-71R44:35:00G.[id number] VAvailable for patient duwxBIVCGNXDIJUPSN5321-80-71H38:42:37 [facility]ACL 2022-09-01 11:08:00 [id number]+2TBzNWj+IjedabksgJbpqKkt 3J/ UUPu/TPMElWDGN2cznp/HmK8kvbmJD5Av7448-63-98 T11:08:00 [facility] Progress NoteREPORT#:[id number] REPORT STATUS: SignedDATE:09/01/22 TIME: 1108 PATIENT: KARMA ROWLAND UNIT #: [id number]#: [id number] [address] AGE: 56 SEX: M ATTEND: Wilbert Ramires AUTHOR: Rohit Benitez [employer] * ALL edits or amendments must be [...] 08/31 2000 92 14 167/77 111 99 04/ 1929 98.3 94 16 151/69 96 100 Room air 08/31 1900 96 151/69 99 98 / 1835 97 14 180/85 122 99 / 1804 15 08/31 1800 95 184/86 124 99 / 1620 97.5 95 16 195/88 0.0 99 04 1435 97.9 90 14 150/70 98 04/ 1430 98.1 89 14 147/69 98 / 1425 97.8 90 15 157/83 99 08/31 [...] to auscultation, no distressLower extremity: LE assessment: edemaNeuro/CONTRACT RUNNER: alert, oriented X 3 Considered stroke alert: [...] discussed with patient, RN and Dr. aPrham. 08/26: Patient remains in sinus rhythm. Blood [...] care. Will follow. at 1811 at 1637 RPT #:[id number] OF REPORTPRProgress [id number]:08:00G.[id number] VAvailable for patient mpobGLORHGFVTUYYTS4312-33-32C91:12:06 [facility] 2022-09-01 10:17:00 [id number]/Hkp8jcEHq297ruoE [facility] eQTkOwfN9CjEQvB4EZLcOg8uNIVJfCq2T4043-87-37 T10:17:00 [facility] Progress NoteREPORT#:[id number] REPORT STATUS: SignedDATE:09/01/22 TIME: 1017 PATIENT: KARMA ROWLAND UNIT #: [id number]#: [id number] [address] AGE: 56 SEX: M ATTEND: Wilbert Ramires [facility] AUTHOR: Tessie Junior * ALL edits or amendments must be made on the electronic/computer document * SubjectiveChief complaint:AMS and right foot infection. s/p extensivedebridement. s/p BKA. pain controlled Objective GeneralVS/I O:Vital Signs: Date Time Temp Pulse Resp B/P B/P Pulse O2 O2 Flow FiO2 Mean Ox Delivery Rate 09/01 1105 97.9 86 15 141/67 0.0 99 09/01 0826 80 94 09/01 0800 84 12 153/72 104 99 09/01 0708 98.4 83 12 129/63 0.0 99 09/01 0700 84 15 129/63 90 98 04/ 0600 81 115/59 83 99 09/01 0500 80 17 126/65 90 97 09/01 0435 98.5 79 16 126/65 85 99 09/01 0400 83 16 128/64 90 97 09/01 0300 86 14 126/59 85 97 09/01 0200 87 148/70 101 97 09/01 0100 91 12 141/67 97 97 09/01 0032 98.1 90 16 138/66 90 99 04/ 0000 88 16 138/66 95 98 08/31 2300 87 13 134/64 92 98 08/31 2200 85 10 132/63 90 97 / [...] distentionGenitourinary: no bladder distentionExtremities: R foot in dressingNeuro/CONTRACT RUNNER: alert, oriented X 3, 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 Considered [...] - will likely need wound vac and skilled nursing IV antibiotic therapy - d/w at bedside [...] on RAlabs pending- hyperkalemia yesterday -s/p kayexalate U8Nnccwzgp with Vanc and Cefepine per IDNeeds JIMENA prior to discharge Cardiology on board. Approved to rehab, can transfer after JIMENA and BMP at 1543 RPT #:[id number] OF REPORTPRProgress sclk1172-10-21Y11:17:00G.RIQP51902858-9769R VAvailable for patient gprfUCALWZPLIHFVQR5533-48-39E74:43:44 [facility] 2022-09-01 10:14:00 [id number]+rr1wxEGRorw+YtX72p tgi d5h67shYXEaGuGdq04TIardfWVhOKriQ65453-14-72 T10:14:00 [facility]Hospitalist Discharge SummaryREPORT#:[id number] REPORT STATUS: SignedDATE:09/01/22 TIME: 1014 PATIENT: KARMA ROWLAND UNIT #: [id number]#: [id number] [address] AGE: 56 SEX: M ATTEND: [...] - will likely need wound vac and skilled nursing IV antibiotic therapy - d/w at bedside [...] - will likely need wound vac and medical terminologist IV antibiotic therapy - d/w at bedside [...] Ox 94 09/01 825 Pulse 80 09/01 0826 B/P 153/72 09/01 0800 B/P Mean 104 09/01 08 Resp 12 09/01 08 Temp 98.4 09/01 0708 O2 Delivery Room air 08/31 192 O2 Flow Rate 7 08/28 1222 24 [...] distentionGenitourinary: no bladder distentionExtremities: R foot in dressingNeuro/CONTRACT RUNNER: alert, oriented X 3, 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 Considered stroke alert: noSkin: no rashPsychiatry: normal affect, normal judgment/insight, normal mood ResultsFindings/Data:Laboratory Tests: 09/01 09/01 09/01 08/31 08/31 0852 0704 0345 191 181Chemistry POC Glucose (70 - 110 MG/DL) 145 [...] Discharge Routines: NoneDiet: Diabetic at 1017 RPT #:[id number] OF REPORTDSDischarge dbqbqpd4639-16-46U79:14:00G.OSFY20910574-95 34AVAvailable for patient lmouMXAHZMFTDRLJYD5988-88-02M38:17:25 [facility] 2022-09-01 09:12:00 [id number]Ne8P NCx znUbci2u9I8kWzDjVWX4FpYGB29CeJBgv1384-78-26 T09:12:00 [facility])Rehab Preadmission ScreenREPORT#: REPORT STATUS:DATE:09/01/22 TIME: 911 PATIENT: KARMA ROWLAND UNIT #: ROOM: BED:: 61 AGE: 56 SEX: M ATTEND: Mj Vences MDPROJECTED ADM AUTHOR: Mj Vences MDREP SRV REP SRV TM: 0912* ALL edits or amendments must be made on the electronic/computer document * IRF Preadmission Screen Information From [facility] PASCRS PAS documentation:The data set between the solid lines has been imported from CRS PAS documentation. PREADMISSION INFORMATION: DEMOGRAPHICS: Assessment date: 09/01/22Assessment time: 05Patient has an Advanced Directive: NoContent of advance directive/living will/plan of care: Copy of advance directive on chart: Referring physician: DR. Haji care provider: NONE LISTEDConsulting physician(s): DR. VENCES REHAB DR. RAMIRES ATTENDING DR. CURTIS MEDICAL DR. LONDON MEDICAL DR. DU MEDICAL DR. LEROY SURGICAL DR. CHAPIN MEDICAL DR. David PARHAM CARDIOGLY DR. PEDERSEN MEDICAL DR. OSWALD SURGICALReferral contact name: RAYSHAWN Lundberg contact number: [phone] setting: Acute hospitalRoom number: 458 IMPAIRMENT GROUP: [...] ETEROCOCCUS RAFFINOSUS, STAPHAUREUS METHICILLIN RESIST 08/25/22 URINE GENOVEIRYAHX46/03/23 BLOOD COAG POS STAPHYLOCCUS 08/22/22 BLOOD GRAM [...] MOD IND WITH WALKER Language and Cognition: POLISH A 0 X 4Add'l functional comment: ROLLING [...] DONTAE Callahan to patient: SPOUSEPhone number 1: [phone] number 2: Caregiver availability: Caregiver can provide: [...] acute inpatient rehab: Rehab nursing 15/12, manager rail,flying squad worker, Occupational therapy, Physical therapy, Dietitian, [facility] [place] [facility] documents reviewed prior to admission decision: Acute History/Physical, Consult notes, Operative reports, Progress notes, Lab/diagnostics, Therapy notes, Vital signs, Other ancillary notes CRS ELECTRONIC SIGNATURE: CRS #1 electronic signature: OSCAR PAYNE credentials: RNDate: 09/01/22Time: 728 CRS #2 electronic signature: CRS credentials: Date: Time: CRS #3 electronic signature: CRS credentials: Date: Time: Provider Pre-Admit SummaryAcute IP rehab admit: criteria metMD determinationBased upon my evaluation and review of the supporting assessment documentation and consultation with the preadmission health clinician, I have determined, prior to admitting [...] compromise, Hospitalist consult, VTE RiskAcute hospital stay: [facility] w[facility]Acute MD, IRF consult on Acute care at 0914 RPT #:[id number] OF REPORTCLClinical gilf3746-15-40E62:12:00G.HYAI53462212-8352R VAvailable for patient zezhNRGYFIJAMDAOCI2948-91-17R42:14:25 [facility] 2022-09-01 06:28:00 [id number]ZCpN dqX b2HmK5MXDlpqFqxHTjIT3gFXMDZUjn32B1619-06-82 T06:28:00 [facility] ([facility]Re[facility] Progress NoteREPORT#:[id number] REPORT STATUS: SignedDATE:09/01/22 TIME: 627 PATIENT: KARMA ROWLAND UNIT #: [id number]#: [id number] [address] AGE: 56 SEX: M ATTEND: Wilbert Ramires [facility] AUTHOR: Mj Vences MD * ALL edits or amendments must be made on the electronic/computer document * SubjectiveChief complaint:Rehab kwuqyw-ls-ANERRrffd wellIn bed, NADStates pain fairly well controlledUrine is clearWife in roomDenies CARRASCO/N/V/D/CP14 systems reviewed and neg. except that above. Objective GeneralVS:Vital Signs: Date Time Temp Pulse Resp B/P B/P Pulse O2 O2 Flow FiO2 Mean Ox Delivery Rate 09/01 0600 81 115/59 83 99 09/01 0500 80 17 126/65 90 97 09/01 0435 98.5 79 16 126/65 85 99 09/01 0400 83 16 128/64 90 97 04/ 0300 86 14 126/59 85 97 04/10 0200 87 148/70 101 97 09/01 0100 91 12 141/67 97 97 04 0032 98.1 90 16 138/66 90 99 04/ 0000 88 16 138/66 95 98 04 2300 87 13 134/64 92 98 08/31 2200 85 10 132/63 90 97 08/31 2100 139/64 92 08/31 2058 89 10 96 09/01 1999 92 14 167/77 111 99 08/31 1929 98.3 94 16 151/69 96 100 Room air 08/31 1900 96 151/69 99 98 08/31 1835 97 14 180/85 122 99 08/31 1804 15 08/31 1800 95 184/86 124 99 08/31 1620 97.5 95 16 195/88 0.0 99 08/31 1435 97.9 90 14 150/70 98 08/31 1430 98.1 89 14 147/69 98 08/31 1425 97.8 90 15 157/83 99 08/31 1419 98.3 90 14 155/68 90 08/31 1208 98.1 91 12 145/66 0.0 98 08/31 0715 98.1 79 14 144/69 0.0 99 [...] non-tender, supple, no JVDCardiovascular: regular rate rhythm, S1/Z4Uvjipxalqog: aerating well, clear bilaterally, clear to auscultationAbdomen: bowel sounds present, non-distended, softSkin: R BKA wrapped with kerlix and JOAN, removed incision healing well, some small blisters on distal limb, no erythema. DSGings replaced. Left foot/ankle wrappedMusculoskeletal - general: Musculoskeletal - general: MMT BUE 5/5, LLE 4/5, R hip 3-, R knee in maxine-techorthoticNeuro/CONTRACT RUNNER: alert, oriented X 3, CNII-XII intact ResultsFindings/Data:Laboratory [...] % (Auto) (14.0 - 32.0 %) 16.8 [place] % (Auto) (4.8 - 9.0 %) 4.8 Eos % (Auto) (0.3 - 3.7 %) 1.6 Baso % (Auto) (0.0 - 2.0 %) 0.2 Neut # (Auto) (2.0 - 7.6 x10 3/uL) 6.63 Lymph # (Auto) (1.0 - 3.8 x10 3/uL) 1.46 [place] # (Auto) (0.1 - 0.8 x10 3/uL) [...] and would like to stay here at [facility] rehab.-Patient approved for IRF. Patient to admit [...] ADL 15 MIN 09/01 1134 Active Rehab attestation:. at 1139 RPT #:[id number] OF REPORTPRProgress jzlk7288-37-11C74:28:00G.UBZG81481285-2932C VAvailable for patient vhqjXOGMCRTECSHOVT1749-72-17I86:39:56 [facility] 2022-08-31 15:30:00 [id number]+jlGPJUG5oqClzv0G J+I RnG6CsO4mYaYMfcl7fiuGkq8ky6BS45RA5461-22-69 T15:30:00 [facility])Endocrinology Progress NoteREPORT#:[id number] REPORT STATUS: SignedDATE:08/31/22 TIME: 1530 PATIENT: KARMA ROWLAND UNIT #: [id number]#: [id number] [address] AGE: 56 SEX: M ATTEND: [...] % (Auto) (14.0 - 32.0 %) 16.8 [place] % (Auto) (4.8 - 9.0 %) 4.8 Eos % (Auto) (0.3 - 3.7 %) 1.6 Baso % (Auto) (0.0 - 2.0 %) 0.2 Neut # (Auto) (2.0 - 7.6 x10 3/uL) 6.63 Lymph # (Auto) (1.0 - 3.8 x10 3/uL) 1.46 [place] # (Auto) (0.1 - 0.8 x10 3/uL) [...] (Man) (0.0 - 0.1 0.00x10 3/uL) 08/30 1651 Chemistry POC Glucose (70 - 110 MG/DL) [...] (Auto) (14.0 - 32.0 %) 13.4 L [place] % (Auto) (4.8 - 9.0 %) 6.3 Eos % (Auto) (0.3 - 3.7 %) 0.8 Baso % (Auto) (0.0 - 2.0 %) 0.2 Neut # (Auto) (2.0 - 7.6 x10 3/uL) 9.96 H Lymph # (Auto) (1.0 - 3.8 x10 3/uL) 1.69 [place] # (Auto) (0.1 - 0.8 x10 3/uL) [...] (Auto) (14.0 - 32.0 %) 10.0 L [place] % (Auto) (4.8 - 9.0 %) 5.6 Eos % (Auto) (0.3 - 3.7 %) 0.5 Baso % (Auto) (0.0 - 2.0 %) 0.1 Neut # (Auto) (2.0 - 7.6 x10 3/uL) 11.78 H Lymph # (Auto) (1.0 - 3.8 x10 3/uL) 1.42 [place] # (Auto) (0.1 - 0.8 x10 3/uL) [...] (Auto) (14.0 - 32.0 %) 8.2 L [place] % (Auto) (4.8 - 9.0 %) 4.1 L Eos % (Auto) (0.3 - 3.7 %) 0.4 Baso % (Auto) (0.0 - 2.0 %) 0.1 Neut # (Auto) (2.0 - 7.6 x10 3/uL) 11.92 H Lymph # (Auto) (1.0 - 3.8 x10 3/uL) 1.13 [place] # (Auto) (0.1 - 0.8 x10 3/uL) [...] 1348 Blood Culture - RECD BLOOD 08/28 134 [...] Albumin (3.4 - 5.0 g/dL) 1.30 L 08/271 Chemistry POC Glucose (70 - 110 MG/DL) [...] (Auto) (14.0 - 32.0 %) 7.0 L [place] % (Auto) (4.8 - 9.0 %) 3.3 L Eos % (Auto) (0.3 - 3.7 %) 0.3 Baso % (Auto) (0.0 - 2.0 %) 0.1 Neut # (Auto) (2.0 - 7.6 x10 3/uL) 14.14 H Lymph # (Auto) (1.0 - 3.8 x10 3/uL) 1.11 [place] # (Auto) (0.1 - 0.8 x10 3/uL) [...] (Auto) (14.0 - 32.0 %) 7.4 L [place] % (Auto) (4.8 - 9.0 %) 3.9 L Eos % (Auto) (0.3 - 3.7 %) 0.5 Baso % (Auto) (0.0 - 2.0 %) 0.1 Neut # (Auto) (2.0 - 7.6 x10 3/uL) 15.49 H Lymph # (Auto) (1.0 - 3.8 x10 3/uL) 1.31 [place] # (Auto) (0.1 - 0.8 x10 3/uL) [...] pH (5.0 - 7.0) 5.0 Ur Specific [place] (1.005 - 1.030) 1.012 Urine Protein (NEGATIVE) [...] (NONE SEEN /LPF) TRACE 08/25 08/25 08/24 8620 5646 2130 Chemistry Sodium (134 - 147 mEq/L) [...] (Auto) (14.0 - 32.0 %) 8.1 L [place] % (Auto) (4.8 - 9.0 %) 4.3 L Eos % (Auto) (0.3 - 3.7 %) 0.5 Baso % (Auto) (0.0 - 2.0 %) 0.1 Neut # (Auto) (2.0 - 7.6 x10 3/uL) 15.44 H Lymph # (Auto) (1.0 - 3.8 x10 3/uL) 1.45 [place] # (Auto) (0.1 - 0.8 x10 3/uL) [...] (Auto) (14.0 - 32.0 %) 4.8 L [place] % (Auto) (4.8 - 9.0 %) 2.9 L Eos % (Auto) (0.3 - 3.7 %) 0.0 L Baso % (Auto) (0.0 - 2.0 %) 0.2 Neut # (Auto) (2.0 - 7.6 x10 3/uL) 19.90 H Lymph # (Auto) (1.0 - 3.8 x10 3/uL) 1.10 [place] # (Auto) (0.1 - 0.8 x10 3/uL) [...] %) 21.8 L 08/193 1 2014 1727 1652Chemistry Sodium (134 - 147 [...] (Auto) (14.0 - 32.0 %) 3.8 L [place] % (Auto) (4.8 - 9.0 %) 3.7 L Eos % (Auto) (0.3 - 3.7 %) 0.0 L Baso % (Auto) (0.0 - 2.0 %) 0.3 Neut # (Auto) (2.0 - 7.6 x10 3/uL) 17.97 H Lymph # (Auto) (1.0 - 3.8 x10 3/uL) 0.76 L [place] # (Auto) (0.1 - 0.8 x10 3/uL) [...] pH (5.0 - 7.0) 5.0 Ur Specific [place] (1.005 - 1.030) 1.013 Urine Protein (NEGATIVE) [...] (Auto) (14.0 - 32.0 %) 4.3 L [place] % (Auto) (4.8 - 9.0 %) 3.1 L Eos % (Auto) (0.3 - 3.7 %) 0.0 L Baso % (Auto) (0.0 - 2.0 %) 0.3 Neut # (Auto) (2.0 - 7.6 x10 3/uL) 19.17 H Lymph # (Auto) (1.0 - 3.8 x10 3/uL) 0.91 L [place] # (Auto) (0.1 - 0.8 x10 3/uL) [...] Stain - RES ABSCESS Recent Impressions:[facility] [employer] UNI/LTD 08/19 0950 Report Impression - Status: [...] SCAN - CT ABD PELVIS W/CONT 08/18 0333 Report Impression - Status: SIGNED Entered: 08/18/2022 0559 IMPRESSION: 3.3 cm hypodensity in the left posterior prostate or seminal vesicle. This could represent an abscess. Contrast-enhanced MRI of the pelvis would be helpful for further evaluation.No acute intra-abdominal findings otherwise.Impression By: Ankur - Jay Ladd M.D.CAT SCAN - CT LOWER EXTRM W/O C RT 08/18 0545 Report Impression - Status: SIGNED Entered: 08/18/2022826 [...] IV antibiotics.S/P wound debridement. at 1531 RPT #:[id number] OF REPORTPRProgress tzhf1641-92-24W29:30:00G.PPDS33569924-5386A VAvailable for patient echzTEHRGCYVHMDYFB1105-78-39W84:31:54 [facility] 2022-08-31 10:19:00 [id number]+Dwv86tIGgreV2qLUT6R CEA jCrCViDJ7nt6ryNMyTB4yPvYBiVSUmpdM2274-55-91 T10:19:00 [facility] HospitalHospitalist Progress NoteREPORT#:[id number] REPORT STATUS: SignedDATE:08/31/22 TIME: 1019 PATIENT: KARMA ROWLAND UNIT #: [id number]#: [id number] [address] AGE: 56 SEX: M ATTEND: Wilbert Ramires [facility] AUTHOR: Musa Enriquez MD * ALL edits or amendments must be made on the electronic/computer document * SubjectiveChief complaint:AMS and right foot infection. s/p extensivedebridement. s/p BKA. pain controlledHPI:No acute issues. Review of SystemsAll systems rev neg: except as noted Objective GeneralVS/I O:Vital Signs: Date Time Temp Pulse Resp B/P B/P Pulse O2 O2 Flow FiO2 Mean Ox Delivery Rate 08/31 0715 36.7 79 14 144/69 0.0 99 04/ 0600 80 13 136/65 93 98 04/ 0516 36.4 78 12 133/65 0.0 98 Room air 04/ 0500 79 133/65 93 98 04/09 0400 78 136/72 98 97 04/ 0300 80 14 126/63 88 97 04/09 0200 84 14 139/65 93 99 04/ 0100 79 15 143/65 94 98 04/ 0027 36.5 81 15 138/66 0.0 98 Room air 04/09 0000 83 10 138/66 95 98 04/08 2300 86 13 128/61 88 97 04/08 2200 96 130/60 86 96 04/08 2100 86 128/59 85 96 04/08 2000 94 19 159/77 111 98 04/08 1944 36.9 95 15 162/76 0.0 100 Room air 04/08 1900 99 19 110 99 04/08 1653 36.9 83 13 160/75 0.0 99 04/08 1303 88 04/08 1300 91 17 154/72 104 97 04/08 1250 87 19 172/78 112 99 04/08 1200 36.8 04/08 1101 85 22 150/68 98 99 24 [...] distentionGenitourinary: no bladder distentionExtremities: R foot in dressingNeuro/CONTRACT RUNNER: alert, oriented X 3, 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 Considered [...] % (Auto) (14.0 - 32.0 %) 16.8 [place] % (Auto) (4.8 - 9.0 %) 4.8 Eos % (Auto) (0.3 - 3.7 %) 1.6 Baso % (Auto) (0.0 - 2.0 %) 0.2 Neut # (Auto) (2.0 - 7.6 x10 3/uL) 6.63 Lymph # (Auto) (1.0 - 3.8 x10 3/uL) 1.46 [place] # (Auto) (0.1 - 0.8 x10 3/uL) [...] - will likely need wound vac and skilled nursing IV antibiotic therapy - d/w at bedside [...] to regular floor.DM control. at 1020 RPT #:[id number] OF REPORTPRProgress bzxj7892-03-13B34:19:00G.[id number] VAvailable for patient zycuWAGXIJMFFNABWT4615-28-06Z88:20:41 [facility] 2022-08-30 18:03:00 [id number]+coJHgyZnX7 uk9 uJ5Oz5OTQcHiwctooDTUERXrLI09my/ve8330-28-04 T18:03:00 [facility] ([facility])Endocrinology Progress NoteREPORT#:[id number] REPORT STATUS: SignedDATE:08/30/22 TIME: 180 PATIENT: KARMA ROWLAND UNIT #: [id number]#: [id number] [address] AGE: 56 SEX: M ATTEND: Wilbert Ramires [facility] AUTHOR: Braxton Chapin MD * ALL edits or amendments must be made on the electronic/computer document * SubjectivePatient reports: no complaints Objective GeneralVS:Last Documented: Result Date Time Pulse Ox 99 08/30 1653 B/P 160/75 08/30 1653 B/P Mean 0.0 08/30 1653 Temp 36.9 08/30 165 Pulse 83 08/30 [...] 08/30 08/30 08/30 08/30 08/29 1651 1218 0818 0521 2011Chemistry Sodium (134 - 147 mEq/L) 136 [...] (Auto) (14.0 - 32.0 %) 13.4 L [place] % (Auto) (4.8 - 9.0 %) 6.3 Eos % (Auto) (0.3 - 3.7 %) 0.8 Baso % (Auto) (0.0 - 2.0 %) 0.2 Neut # (Auto) (2.0 - 7.6 x10 3/uL) 9.96 H Lymph # (Auto) (1.0 - 3.8 x10 3/uL) 1.69 [place] # (Auto) (0.1 - 0.8 x10 3/uL) [...] (Auto) (14.0 - 32.0 %) 10.0 L [place] % (Auto) (4.8 - 9.0 %) 5.6 Eos % (Auto) (0.3 - 3.7 %) 0.5 Baso % (Auto) (0.0 - 2.0 %) 0.1 Neut # (Auto) (2.0 - 7.6 x10 3/uL) 11.78 H Lymph # (Auto) (1.0 - 3.8 x10 3/uL) 1.42 [place] # (Auto) (0.1 - 0.8 x10 3/uL) [...] (Auto) (14.0 - 32.0 %) 8.2 L [place] % (Auto) (4.8 - 9.0 %) 4.1 L Eos % (Auto) (0.3 - 3.7 %) 0.4 Baso % (Auto) (0.0 - 2.0 %) 0.1 Neut # (Auto) (2.0 - 7.6 x10 3/uL) 11.92 H Lymph # (Auto) (1.0 - 3.8 x10 3/uL) 1.13 [place] # (Auto) (0.1 - 0.8 x10 3/uL) [...] (Auto) (14.0 - 32.0 %) 7.0 L [place] % (Auto) (4.8 - 9.0 %) 3.3 L Eos % (Auto) (0.3 - 3.7 %) 0.3 Baso % (Auto) (0.0 - 2.0 %) 0.1 Neut # (Auto) (2.0 - 7.6 x10 3/uL) 14.14 H Lymph # (Auto) (1.0 - 3.8 x10 3/uL) 1.11 [place] # (Auto) (0.1 - 0.8 x10 3/uL) [...] (Auto) (14.0 - 32.0 %) 7.4 L [place] % (Auto) (4.8 - 9.0 %) 3.9 L Eos % (Auto) (0.3 - 3.7 %) 0.5 Baso % (Auto) (0.0 - 2.0 %) 0.1 Neut # (Auto) (2.0 - 7.6 x10 3/uL) 15.49 H Lymph # (Auto) (1.0 - 3.8 x10 3/uL) 1.31 [place] # (Auto) (0.1 - 0.8 x10 3/uL) [...] pH (5.0 - 7.0) 5.0 Ur Specific [place] (1.005 - 1.030) 1.012 Urine Protein (NEGATIVE) [...] (Auto) (14.0 - 32.0 %) 8.1 L [place] % (Auto) (4.8 - 9.0 %) 4.3 L Eos % (Auto) (0.3 - 3.7 %) 0.5 Baso % (Auto) (0.0 - 2.0 %) 0.1 Neut # (Auto) (2.0 - 7.6 x10 3/uL) 15.44 H Lymph # (Auto) (1.0 - 3.8 x10 3/uL) 1.45 [place] # (Auto) (0.1 - 0.8 x10 3/uL) [...] (Auto) (14.0 - 32.0 %) 4.8 L [place] % (Auto) (4.8 - 9.0 %) 2.9 L Eos % (Auto) (0.3 - 3.7 %) 0.0 L Baso % (Auto) (0.0 - 2.0 %) 0.2 Neut # (Auto) (2.0 - 7.6 x10 3/uL) 19.90 H Lymph # (Auto) (1.0 - 3.8 x10 3/uL) 1.10 [place] # (Auto) (0.1 - 0.8 x10 3/uL) [...] (Auto) (14.0 - 32.0 %) 3.8 L [place] % (Auto) (4.8 - 9.0 %) 3.7 L Eos % (Auto) (0.3 - 3.7 %) 0.0 L Baso % (Auto) (0.0 - 2.0 %) 0.3 Neut # (Auto) (2.0 - 7.6 x10 3/uL) 17.97 H Lymph # (Auto) (1.0 - 3.8 x10 3/uL) 0.76 L [place] # (Auto) (0.1 - 0.8 x10 3/uL) [...] pH (5.0 - 7.0) 5.0 Ur Specific [place] (1.005 - 1.030) 1.013 Urine Protein (NEGATIVE) [...] (Auto) (14.0 - 32.0 %) 4.3 L [place] % (Auto) (4.8 - 9.0 %) 3.1 L Eos % (Auto) (0.3 - 3.7 %) 0.0 L Baso % (Auto) (0.0 - 2.0 %) 0.3 Neut # (Auto) (2.0 - 7.6 x10 3/uL) 19.17 H Lymph # (Auto) (1.0 - 3.8 x10 3/uL) 0.91 L [place] # (Auto) (0.1 - 0.8 x10 3/uL) [...] Stain - RES ABSCESS Recent Impressions:[facility] [employer] 08/19 0950 Report Impression - Status: [...] IV antibiotics.S/P wound debridement. at 1804 RPT #:[id number] OF REPORTPRProgress npdh1834-58-30Q80:03:00G.EWDX73616665-9299C VAvailable for patient wysiFBPDNMGPXECZKW5453-11-62I89:05:15 [facility] 2022-08-30 17:43:00 [id number]/UhtwA5Yr FR8 LlDmLJG2+dTxeA0oVo0hTBHMpuJy9XSsV9115-40-36 T17:43:00 [facility] ([facility])Orthopaedic Progress NoteREPORT#:[id number] REPORT STATUS: SignedDATE:08/30/22 TIME: 1743 PATIENT: KARMA ROWLAND UNIT #: [id number]#: [id number] [place] [facility]: [birth year] AGE: 56 SEX: M ATTEND: Wilbert Ramires [facility] AUTHOR: Nixon eLroy MD * ALL edits or amendments must [...] 08/30 08/30 08/30 08/30 08/29 1651 1218 0882 0545 2010 Chemistry Sodium (134 - 147 [...] (Auto) (14.0 - 32.0 %) 13.4 L [place] % (Auto) (4.8 - 9.0 %) 6.3 Eos % (Auto) (0.3 - 3.7 %) 0.8 Baso % (Auto) (0.0 - 2.0 %) 0.2 Neut # (Auto) (2.0 - 7.6 x10 3/uL) 9.96 H Lymph # (Auto) (1.0 - 3.8 x10 3/uL) 1.69 [place] # (Auto) (0.1 - 0.8 x10 3/uL) [...] call with any questions or concerns. at 4947 RPT #:[id number] OF REPORTPRProgress vswm0763-44-85B54:43:00G.NUHK79644492-3383L VAvailable for patient ofzkWANATZODDASDOK6420-83-61B17:48:04 [facility] 2022-08-30 11:46:00 [id number]/SGMI6csYwr24DZd 1zw Yi4AFi5d1Mu5A1pebr6ME30hgLI8BJI0E5754-48-82 T11:46:00 [facility] ([facility])Hospitalist Progress NoteREPORT#:[id number] REPORT STATUS: SignedDATE:08/30/22 TIME: 1146 PATIENT: KARMA ROWLAND UNIT #: [id number]#: [id number] [address] [birth year] AGE: 56 SEX: M ATTEND: Wilbert Ramires [facility] AUTHOR: Musa Enriquez MD * ALL edits [...] 1653 36.9 83 13 160/75 0.0 99 0408 1303 88 08/30 1300 91 17 154/72 104 97 08/30 1250 87 19 172/78 112 99 / 1200 36.8 08/30 1101 85 22 150/68 98 99 04/08 1000 86 15 171/78 112 99 / 0916 84 13 151/69 99 99 /08 0800 37.0 / 0756 83 124/58 83 04/ 0754 83 122/58 84 / 0400 36.9 04/ 0300 87 17 08/30 0200 83 17 110/56 78 / 0100 84 17 08/30 0025 89 17 127/58 84 99 08/30 0000 36.9 08/29 2300 80 16 98 08/29 2200 83 17 98 08/29 2100 93 21 100 24 hour I O ending at 0700: 08/30 0700 08/29 1900 Intake Total 270.00 1020.00 Output Total [...] distentionGenitourinary: no bladder distentionExtremities: R foot in dressingNeuro/CONTRACT RUNNER: alert, oriented X 3, 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 Considered [...] - will likely need wound vac and medical terminologist IV antibiotic therapy - d/w at bedside [...] to floor / IMCU at 2047 RPT #:[id number] OF REPORTPRProgress [id number]:46:00G.[id number] VAvailable for patient xaffYTMZKJGOESSJTP2979-40-18E56:47:47 [facility] 2022-08-30 06:58:00 [id number] Apq xobZAyI0VQraD0ucc33EcxgDZvP6TYlCe2076-53-00 T06:58:00 [facility] ([facility])Rehab Progress NoteREPORT#:[id number] REPORT STATUS: SignedDATE:08/30/22 TIME: 06 PATIENT: KARMA ROWLAND UNIT #: [id number]#: [id number] [place] [facility] [place]D[place]: [birth year] AGE: 56 SEX: M ATTEND: Wilbert Ramires MDADM AUTHOR: Guero Candelaria * ALL edits or amendments must be made on the electronic/computer document * SubjectiveChief complaint:Rehab follow-upSeen in ICUDoing wellWaiting on breakfastStates pain fairly well controlled Denies CARRAS[place]/N/V/D/CP14 systems reviewed and neg. except that above. 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 SEE RE-EVAL FOR DETAILS. Physical ExamGeneral appearance: alert, awake, oriented, no acute distressPsych: alert, normal affect, oriented x 3HEENT: anicteric, sclera clearNeck: supple, no JVDCardiovascular: regular rate rhythm, S1/D2Ghbgvzrlrmt: aerating well, clear bilaterally, clear to auscultationAbdomen: bowel sounds present, non-distended, softSkin: R BKA wrapped with kerlix and JOAN, Left foot/ankle wrappedMusculoskeletal - general: Musculoskeletal - general: MMT BUE 5/5, LLE 4/5, R hip 3-, R knee in maxine-techorthoticNeuro/CONTRACT RUNNER: alert, oriented X 3, CNII-XII intact ResultsFindings/Data:Laboratory [...] (Auto) (14.0 - 32.0 %) 13.4 L [place] % (Auto) (4.8 - 9.0 %) 6.3 Eos % (Auto) (0.3 - 3.7 %) 0.8 Baso % (Auto) (0.0 - 2.0 %) 0.2 Neut # (Auto) (2.0 - 7.6 x10 3/uL) 9.96 H Lymph # (Auto) (1.0 - 3.8 x10 3/uL) 1.69 [place] # (Auto) (0.1 - 0.8 x10 3/uL) [...] [facility]We will continue to monitor patients progress and make further recommendations Total time was 33 minutes > 50% with patient performing physical examination, discussing plan of care, goals, therapies, progress, medications, labs. All questions answeredRehab attestation:. at 0920 RPT #:[id number] OF REPORTPRProgress [id number]:58:00G.[id number] VAvailable for patient ersaAOZNOPTAERGEDP1201-14-05E42:21:25 [facility] 2022-08-29 19:46:00 [id number] mSb Je8iFLyrqL4r72/vkVpFGOWp36KCzN+wX2477-45-87 T19:46:00 [facility] ([facility])Podiatry Progress NoteREPORT#:[id number] REPORT STATUS: SignedDATE:08/29/22 TIME: 1945 PATIENT: KARMA ROWLAND UNIT #: [id number]#: [id number] [address] [birth year] AGE: 56 SEX: M ATTEND: Wilbert Ramires MDADM AUTHOR: Liam PedersenM * ALL edits [...] Result Date Time Pulse Ox 99 08/29 1899 B/P 163/75 08/29 1899 B/P Mean 108 08/29 1899 Pulse 91 08/29 1899 Resp 13 08/29 1899 Temp 36.8 08/29 1600 O2 Delivery Room [...] (Auto) (14.0 - 32.0 %) 10.0 L [place] % (Auto) (4.8 - 9.0 %) 5.6 Eos % (Auto) (0.3 - 3.7 %) 0.5 Baso % (Auto) (0.0 - 2.0 %) 0.1 Neut # (Auto) (2.0 - 7.6 x10 3/uL) 11.78 H Lymph # (Auto) (1.0 - 3.8 x10 3/uL) 1.42 [place] # (Auto) (0.1 - 0.8 x10 3/uL) [...] u/s left no dvt at 1948 RPT #:[id number] OF REPORTPRProgress yuzp0693-74-52A58:46:00G.SJHJ99238878-5630U VAvailable for patient apieDIPMWETEIMFFIK2708-74-20D67:48:59 [facility] 2022-08-29 18:05:00 [id number]/0QWVRNpf/7 55l 0qJBAqBmmUrWlbxLNAyXDHspAcHIWf5Cd2988-23-31 T18:05:00 [facility] ([facility])Cardiology Progress NoteREPORT#:[id number] REPORT STATUS: SignedDATE:08/29/22 TIME: 1805 PATIENT: KARMA ROWLAND UNIT #: [id number]#: [id number] [address] AGE: 56 SEX: M ATTEND: Wilbert Ramires [facility] AUTHOR: Napoleon Parham MD * ALL edits or amendments must be made on the electronic/computer document * SubjectiveChief complaint:foot infectionComments:Doing better today, no new events Telemetry: Sinus rhythm Objective GeneralVS/I O:24 hour I O ending at 0700: 08/29 [...] O2 Flow FiO2 Mean Ox Delivery Rate 08/29 1700 88 12 145/68 98 98 08/29 1600 98.2 08/29 1600 85 14 138/65 93 95 08/29 1500 80 12 110/64 83 98 08/29 1401 88 15 121/57 82 97 08/29 1300 93 20 166/76 109 100 08/29 1200 98.2 08/29 1200 91 14 165/81 115 98 08/29 1115 87 17 161/77 110 98 04/07 [...] 2100 90 18 110/57 80 96 04/06 2029 91 14 115/57 81 97 04/1999 99.5 04/1999 90 10 98/54 73 96 04/06 1930 [...] to auscultation, no distressLower extremity: LE assessment: edemaNeuro/CONTRACT RUNNER: alert, oriented X 3 Considered stroke alert: [...] (Auto) (14.0 - 32.0 %) 10.0 L [place] % (Auto) (4.8 - 9.0 %) 5.6 Eos % (Auto) (0.3 - 3.7 %) 0.5 Baso % (Auto) (0.0 - 2.0 %) 0.1 Neut # (Auto) (2.0 - 7.6 x10 3/uL) 11.78 H Lymph # (Auto) (1.0 - 3.8 x10 3/uL) 1.42 [place] # (Auto) (0.1 - 0.8 x10 3/uL) [...] current management, will follow. at 1806 RPT #:[id number] OF REPORTPRProgress nkjc6171-33-45X58:05:00G.[id number] VAvailable for patient jhkmRBJDZQUEPPKQER2871-43-87H63:07:19 [facility] 2022-08-29 17:21:00 [id number]+M3tn4lR9PY+43O3sLK Bh3 8qbj72sc1+SnrhT9yyDCXUmgGPjeVNtBf8061-71-22 T17:21:00 [facility] Progress NoteREPORT#:[id number] REPORT STATUS: SignedDATE:08/29/22 TIME: 1721 PATIENT: KARMA ROWLAND UNIT #: [id number]#: [id number] [facility] AGE: 56 SEX: M ATTEND: Wilbert [...] (Auto) (14.0 - 32.0 %) 10.0 L [place] % (Auto) (4.8 - 9.0 %) 5.6 Eos % (Auto) (0.3 - 3.7 %) 0.5 Baso % (Auto) (0.0 - 2.0 %) 0.1 Neut # (Auto) (2.0 - 7.6 x10 3/uL) 11.78 H Lymph # (Auto) (1.0 - 3.8 x10 3/uL) 1.42 [place] # (Auto) (0.1 - 0.8 x10 3/uL) [...] (Auto) (14.0 - 32.0 %) 8.2 L [place] % (Auto) (4.8 - 9.0 %) 4.1 L Eos % (Auto) (0.3 - 3.7 %) 0.4 Baso % (Auto) (0.0 - 2.0 %) 0.1 Neut # (Auto) (2.0 - 7.6 x10 3/uL) 11.92 H Lymph # (Auto) (1.0 - 3.8 x10 3/uL) 1.13 [place] # (Auto) (0.1 - 0.8 x10 3/uL) [...] - 110 MG/DL) 148 H Ionized Calcium Mitiz (1.09 - 1.30 MMOL/L) 1.08 L Hematology [...] (Auto) (14.0 - 32.0 %) 7.0 L [place] % (Auto) (4.8 - 9.0 %) 3.3 L Eos % (Auto) (0.3 - 3.7 %) 0.3 Baso % (Auto) (0.0 - 2.0 %) 0.1 Neut # (Auto) (2.0 - 7.6 x10 3/uL) 14.14 H Lymph # (Auto) (1.0 - 3.8 x10 3/uL) 1.11 [place] # (Auto) (0.1 - 0.8 x10 3/uL) [...] (Auto) (14.0 - 32.0 %) 7.4 L [place] % (Auto) (4.8 - 9.0 %) 3.9 L Eos % (Auto) (0.3 - 3.7 %) 0.5 Baso % (Auto) (0.0 - 2.0 %) 0.1 Neut # (Auto) (2.0 - 7.6 x10 3/uL) 15.49 H Lymph # (Auto) (1.0 - 3.8 x10 3/uL) 1.31 [place] # (Auto) (0.1 - 0.8 x10 3/uL) [...] pH (5.0 - 7.0) 5.0 Ur Specific [place] (1.005 - 1.030) 1.012 Urine Protein (NEGATIVE) [...] (Auto) (14.0 - 32.0 %) 8.1 L [place] % (Auto) (4.8 - 9.0 %) 4.3 L Eos % (Auto) (0.3 - 3.7 %) 0.5 Baso % (Auto) (0.0 - 2.0 %) 0.1 Neut # (Auto) (2.0 - 7.6 x10 3/uL) 15.44 H Lymph # (Auto) (1.0 - 3.8 x10 3/uL) 1.45 [place] # (Auto) (0.1 - 0.8 x10 3/uL) [...] (Auto) (14.0 - 32.0 %) 4.8 L [place] % (Auto) (4.8 - 9.0 %) 2.9 L Eos % (Auto) (0.3 - 3.7 %) 0.0 L Baso % (Auto) (0.0 - 2.0 %) 0.2 Neut # (Auto) (2.0 - 7.6 x10 3/uL) 19.90 H Lymph # (Auto) (1.0 - 3.8 x10 3/uL) 1.10 [place] # (Auto) (0.1 - 0.8 x10 3/uL) [...] (Auto) (14.0 - 32.0 %) 3.8 L [place] % (Auto) (4.8 - 9.0 %) 3.7 L Eos % (Auto) (0.3 - 3.7 %) 0.0 L Baso % (Auto) (0.0 - 2.0 %) 0.3 Neut # (Auto) (2.0 - 7.6 x10 3/uL) 17.97 H Lymph # (Auto) (1.0 - 3.8 x10 3/uL) 0.76 L [place] # (Auto) (0.1 - 0.8 x10 3/uL) [...] pH (5.0 - 7.0) 5.0 Ur Specific [place] (1.005 - 1.030) 1.013 Urine Protein (NEGATIVE) [...] 1458 Blood Culture - ORD BLOOD 08/19 1710 Blood Culture - ORD BLOOD 08/19 1709 [...] (Auto) (14.0 - 32.0 %) 4.3 L [place] % (Auto) (4.8 - 9.0 %) 3.1 L Eos % (Auto) (0.3 - 3.7 %) 0.0 L Baso % (Auto) (0.0 - 2.0 %) 0.3 Neut # (Auto) (2.0 - 7.6 x10 3/uL) 19.17 H Lymph # (Auto) (1.0 - 3.8 x10 3/uL) 0.91 L [place] # (Auto) (0.1 - 0.8 x10 3/uL) [...] RES ABSCESS Recent Impressions:ULTRASOUND - DUP LE [place] UNI/LTD 08/19 0950 Report Impression - Status: [...] IV antibiotics.For wound debridement. at 1722 RPT #:[id number] OF REPORTPRProgress srgp5135-62-76P74:21:00G.EBKD44759564-6592P VAvailable for patient nywtZXPIARAPBZKJFJ8798-59-08G22:22:24 [facility] 2022-08-29 14:11:00 [id number]2b5F yMY TbBmpimGbSklZ3PMWxefvCoXlAwD5Kqjn9246-32-19 T14:11:00 [facility] ([facility])Infectious Dis. Progress NoteREPORT#:[id number] REPORT STATUS: SignedDATE:08/29/22 TIME: 141 PATIENT: KARMA ROWLAND UNIT #: [id number]#: [id number] [address] [birth year] AGE: 56 SEX: M ATTEND: Wilbert Ramires [facility] AUTHOR: Merry Wolff MD * ALL edits [...] BKA today, afebrile, WBC 13.8 from 15.9 4/7 pt doing well, awake, alert, afebrile, family at bedside, states he only hasa little bit of painPatient reports:Yes: pain controlled. No: cough, diarrhea, fever, headache, nausea, shortness of breath. Portions of this section were scribed by Jill Quintero on 08/29/22 at 1414 Objective GeneralVS/I O:Vital Signs Date Temp Pulse Resp B/P B/P Mean Pulse Ox FiO2 04/06-/ 98.2-99.5 78-95 10-23 87-166/54-81 67-115 95-100 Last Documented: Result Date Time Pulse Ox 97 04/ 1401 B/P 121/57 04/ 1401 B/P Mean 82 04/ 1401 Pulse 88 04/ 1401 Resp 15 / 1401 Temp 98.2 04/ 1200 O2 Delivery Room air / 1235 O2 Flow Rate 7 /06 1222 Vital Signs: Date Time Temp Pulse Resp B/P B/P Pulse O2 O2 Flow FiO2 Mean Ox Delivery Rate / 1401 [...] 04/06 2130 87 14 111/56 78 96 08/28 2099 90 18 110/57 80 96 08/28 2029 91 14 115/57 81 97 08/29 1999 99.5 08/29 1999 90 10 98/54 73 96 08/28 1930 84 10 87/55 67 96 / 1830 86 103/55 69 95 04/ 1800 95 144/65 93 98 04/ 1730 91 152/70 101 98 / 1700 90 148/67 96 98 / 1630 89 152/72 104 98 / 1600 98.4 04/ 1600 88 151/73 105 98 04/06 1530 86 133/65 94 98 04/06 1500 82 144/71 102 98 /06 1430 83 135/69 97 98 24 hour [...] urinary catheter ( on CBI)Extremities: edema, right BKANeuro/CONTRACT RUNNER: alert, 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 Considered stroke alert: [...] (Auto) (14.0 - 32.0 %) 10.0 L [place] % (Auto) (4.8 - 9.0 %) 5.6 Eos % (Auto) (0.3 - 3.7 %) 0.5 Baso % (Auto) (0.0 - 2.0 %) 0.1 Neut # (Auto) (2.0 - 7.6 x10 3/uL) 11.78 H Lymph # (Auto) (1.0 - 3.8 x10 3/uL) 1.42 [place] # (Auto) (0.1 - 0.8 x10 3/uL) [...] (Auto) (14.0 - 32.0 %) 10.0 L [place] % (Auto) (4.8 - 9.0 %) 5.6 Eos % (Auto) (0.3 - 3.7 %) 0.5 Baso % (Auto) (0.0 - 2.0 %) 0.1 Neut # (Auto) (2.0 - 7.6 x10 3/uL) 11.78 H Lymph # (Auto) (1.0 - 3.8 x10 3/uL) 1.42 [place] # (Auto) (0.1 - 0.8 x10 3/uL) [...] (Auto) (14.0 - 32.0 %) 8.2 L [place] % (Auto) (4.8 - 9.0 %) 4.1 L Eos % (Auto) (0.3 - 3.7 %) 0.4 Baso % (Auto) (0.0 - 2.0 %) 0.1 Neut # (Auto) (2.0 - 7.6 x10 3/uL) 11.92 H Lymph # (Auto) (1.0 - 3.8 x10 3/uL) 1.13 [place] # (Auto) (0.1 - 0.8 x10 3/uL) [...] 1347 Blood Culture - RES BLOOD Recent Impressions:ULTRASOUND [...] Sodium 5,000 UNIT Q8HR 08/18 0600 AC 04/07 SUBQ 09/17 0559 1344 Cardiovascular Drugs Sig/Jan [...] HCl 1 MG Q3H PRN PRN 08/28 181 AC 08/29 IV 09/02 1814 1357 Hydromorphone HCl 0.5 MG Q3H PRN PRN 08/28 1815 AC IV 09/02 1814 Acetaminophen 1,000 MG PREOP ONCALL 08/27 193 DC PO 09/26 235 Gabapentin 200 MG PREOP ONCALL 08/27 1929 DC PO 09/26 235 Lorazepam 1 MG ONCE PRN 08/21 09 AC 08/21 IV 09/20 0859 1143 Acetaminophen 650 MG Q6H PRN PRN 08/18 0945 AC 08/28 PO 09/17 0944 1548 Electrolytic, Caloric, And Daniel Sig/Jan Start time Last Medication Dose Route Stop Time Status Admin Lactated Ringer's 1,000 ML PREOP ONCALL 08/27 1929 DC IV 09/26 2359 Sodium Chloride 500 ML PREOP ONCALL 08/27 1929 DC IV 09/26 235 Sodium Chloride 500 ML PREOP ONCALL 08/27 1929 DC IV 09/26 235 Sodium Chloride 1,000 ML PREOP ONCALL 08/27 1929 DC IV 09/26 235 Sodium Chloride 5 ML ASDIR PRN 08/27 1929 DC IV 09/26 192 Sodium Chloride 10 ML ASDIR PRN 08/27 193 DC IV 05 192 Sodium Chloride 250 ML ASDIR PRN 08/27 193 DC IV 09/26 192 Sodium Chloride 0 ASDIR PRN 08/21 0900 [...] BEDTIME 08/27 2100 DC 08/27 SUBQ 09/26 Insulin Human Lispro 7 UNIT AC 08/20 1630 AC 08/28 SUBQ 09/19 162 1319 Insulin Human Lispro 0 AC HS 08/20 1630 AC 08/28 SUBQ 09/19 162 1319 Glucagon 1 MG ASDIR PRN 08/20 1530 AC IM 09/19 1529 Local Anesthetics (Parenteral) Sig/Jan Start time Last Medication Dose Route Stop Time Status Admin Lidocaine 1 PATCH DAILY 08/29 1230 AC 08/29 TOPICAL 09/28 1229 1343 Microbiology:08/28 1348 BLOOD: Blood Culture - RES08/28 1348 BLOOD: Blood Culture - RES08/26 2217 ABSCESS: Wound Culture - COMP CITROBACTER FARMERI ENTEROCOCCUS RAFFINOSUS STAPH AUREUS,METHICILLIN RESIS08/26 221 ABSCESS: Anaerobic Culture - COMP08/26 221 ABSCESS: Gram Stain - COMP Recent Impressions:ULTRASOUND [...] procedure notes. Impression By: [email or web address] - Bishop S. Wilbert, M.D. Portions of this section were scribed [...] persistent bacteremia-plan for Right BKA on 08/28 4/6s/p right BKA-repeat blood cx sent today-cont on [...] on 08/29/22 at 1414 at 1740 RPT #:[id number] OF REPORTPRProgress epbl8544-02-55E45:11:00G.MUAC31712624-7600S VAvailable for patient xxfyDKEJRGFUBIWOHG7686-50-91O97:42:29 [facility] 2022-08-29 09:48:00 [id number]wRfj GB1 hoL6/8M7PxSN1oJXdm3Fhmah9nv1qIyZE7307-14-42 T09:48:00 [facility] ([facility])Adult General ConsultationREPORT#:[id number] REPORT STATUS: SignedDATE:08/29/22 TIME: 0948 PATIENT: KARMA ROWLAND UNIT #: [id number]#: [id number] [address] [birth year] AGE: 56 SEX: M ATTEND: [...] ONCE PRN 08/28 1045 DC (PHENERGAN) PO 08/28 203 Autonomic Drugs Sig/Jan Start [...] HCl 1 MG Q3H PRN PRN 08/28 181 AC 08/29 (DILAUDID) IV 09/02 1813 043 Hydromorphone HCl 0.5 MG Q3H PRN PRN [...] 2358 Lorazepam 1 MG ONCE PRN 08/21 09 AC 08/21 (ATIVAN) IV 09/20 0859 1143 [...] Chloride 250 ML ASDIR PRN 08/27 1929 DC (SODIUM CHLORIDE IV 09/26 1928 0.9%) [...] ONCE PRN 08/28 1045 DC (ZOFRAN) IV 08/29 2035 Ondansetron HCl 0 [...] 08/20 1630 AC 08/28 (HUMALOG) SUBQ 09/19 162 1319 Insulin Human Lispro 0 AC HS 08/20 1630 AC 08/28 (HUMALOG) SUBQ 09/19 162 1319 Glucagon 1 MG ASDIR PRN 08/20 1530 AC (GLUCAGON) IM 09/19 1529 Local Anesthetics (Parenteral) Sig/Jan Start time Last Medication Dose Route Stop Time Status Admin Ropivacaine 150 MG ASDIR PRN 08/28 1045 DC (NAROPIN 0.5% 150 MG/ LOCAL 08/29 2035 30mL) Allergies:Coded Allergies:No Known Allergies (03/23/11) Ambulatory [...] Pulse 87 08/29 900 Resp 21 08/29 899 Temp 98.2 08/29 08 O2 Delivery Room air 08/28 1235 O2 [...] 4/5, R hip3-/5, R knee in maxine-tech orthoticNeuro/CONTRACT RUNNER: gait not tested, alert, oriented X 3, CNII-XII grossly intactSkin: dry, normal color, no rash, R BKA w dsg/joan, hemovac drainLymphatics: neck normal, no lymphadenopathyPsychiatry: normal affect, normal judgment/insight, normal mood ResultsFindings/Data:Laboratory Tests: 08/29 08/29 08/29 08/28 0912 0868 8843 2015 Chemistry Sodium (134 - 147 mEq/L) [...] (Auto) (14.0 - 32.0 %) 10.0 L [place] % (Auto) (4.8 - 9.0 %) 5.6 Eos % (Auto) (0.3 - 3.7 %) 0.5 Baso % (Auto) (0.0 - 2.0 %) 0.1 Neut # (Auto) (2.0 - 7.6 x10 3/uL) 11.78 H Lymph # (Auto) (1.0 - 3.8 x10 3/uL) 1.42 [place] # (Auto) (0.1 - 0.8 x10 3/uL) [...] (Man) (0.0 - 0.1 x10 3/uL) 0.00 08/28/ 1709 1302 1218 Chemistry POC Glucose (70 - 110 MG/DL) 103 206 H 185 H Microbiology: Date/Time Procedure - Status Source Growth 08/28 134 Blood Culture - RECD BLOOD 08/28 1348 Blood Culture - RECD BLOOD Recent Impressions:RADIOLOGY - XR FLUOROSCOPY 0-60 MIN 08/28 1101 Report Impression - Status: SIGNED Entered: 08/28/2022 1120 IMPRESSION: Fluoroscopy dosage documentation. See also separate procedure notes. Impression By: Mala Atkins M.D. Recent Impressions:ULTRASOUND - DUP VEIN UNI/LTD 08/28 0857 Report Impression - Status: SIGNED Entered: 08/28/2022 09 IMPRESSION: 1. No evidence of venous thrombosis involving left lower extremity. 2. Approximately 8 x 2 x 1.3 cm complex fluid collection along the left upper calf probably representing a small hematoma. Impression By: [email or web address] Cr Parra M.D.RADIOLOGY - XR FLUOROSCOPY 0-60 MIN 08/28 1101 Report Impression - Status: SIGNED Entered: 08/28/2022 1120 IMPRESSION: Fluoroscopy dosage documentation. See also separate procedure notes. Impression By: Mala Atkins M.D. Diagnosis, Assessment PlanOrders: Procedure Date/time [...] and would like to stay here at [facility]We will continue to monitor patients progress and make further recommendations Thank you Dr. Ramires for this kind referral. TT 68 min>50% with discussing with patient and about recommendations for IRF, rehab plan of care, goals, expectations, needs, and medical issues, examination. MAR and EMR reviewed. All Questions answered. at 1224 [facility] #:[id number] OF REPORTUSGlpkmhroaeir2702-47-41W11:48:00G .NHKD48147823-5522RPUyeltzpen for patient eadgMZAFWBMHYJPURL9196-70-10M91:25:14 [facility] 2022-08-29 06:54:00 [id number]0RDl lgr 60NcmDWKU95CINu4+Uyma1p4V1y0iqhTv8765-11-10 T06:54:00 [facility] ([facility])Hospitalist Progress NoteREPORT#:[id number] REPORT STATUS: SignedDATE:08/29/22 TIME: 0654 PATIENT: KARMA ROWLAND UNIT #: [id number]#: [id number] [facility] AGE: 56 SEX: M ATTEND: Wilbert Ramires [facility] AUTHOR: Wilbert Ramires MD * ALL edits or amendments must be made on the electronic/computer document * SubjectiveChief complaint:AMS and right foot infection. s/p extensivedebridement. s/p BKA. pain controlled Review of SystemsAll systems rev neg: except as noted Objective GeneralVS/I O:Vital Signs: Date Time Temp Pulse Resp B/P B/P Pulse O2 O2 Flow FiO2 Mean Ox Delivery Rate 08/29 0600 79 10 113/57 78 97 04/07 [...] 04/06 0700 87 10 120/62 85 94 24 hour I O ending at 0700: 07 0700 04/06 1900 Intake Total 6310.00 560.00 [...] distentionGenitourinary: no bladder distentionExtremities: R foot in dressingNeuro/CONTRACT RUNNER: alert, oriented X 3, 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 Considered [...] (Auto) (14.0 - 32.0 %) 10.0 L [place] % (Auto) (4.8 - 9.0 %) 5.6 Eos % (Auto) (0.3 - 3.7 %) 0.5 Baso % (Auto) (0.0 - 2.0 %) 0.1 Neut # (Auto) (2.0 - 7.6 x10 3/uL) 11.78 H Lymph # (Auto) (1.0 - 3.8 x10 3/uL) 1.42 [place] # (Auto) (0.1 - 0.8 x10 3/uL) [...] - will likely need wound vac and skilled nursing IV antibiotic therapy - d/w at bedside [...] Heparin SQ for VTE at 0659 RPT #:[id number] OF REPORTPRProgress syem4177-45-90S97:54:00G.HVWZ47673431-1387W VAvailable for patient frghOHJMCLXQQWXTBB8495-90-15U81:59:53 [facility] 2022-08-28 17:45:00 [id number]+LmW1/qLbQ/foZpGo5i2cBuyQu0U oCZ lO6G/ErCp2Kr9ijkzwyjz89QvO+osC3DV3285-63-38 T17:45:00 [facility] Progress NoteREPORT#:[id number] REPORT STATUS: SignedDATE:08/28/22 TIME: 1744 PATIENT: KARMA ROWLAND UNIT #: [id number]#: [id number] [address]: [address] AGE: 56 SEX: M ATTEND: Wilbert [...] (Auto) (14.0 - 32.0 %) 8.2 L [place] % (Auto) (4.8 - 9.0 %) 4.1 L Eos % (Auto) (0.3 - 3.7 %) 0.4 Baso % (Auto) (0.0 - 2.0 %) 0.1 Neut # (Auto) (2.0 - 7.6 x10 3/uL) 11.92 H Lymph # (Auto) (1.0 - 3.8 x10 3/uL) 1.13 [place] # (Auto) (0.1 - 0.8 x10 3/uL) [...] Tests: 08/27 08/27 08/27 08/27 1728 1147 7122 6542 Chemistry Sodium (134 - 147 mEq/L) 137 [...] - 5.0 g/dL) 1.30 L 08/27 08/26 2998 2041 Chemistry POC Glucose (70 - 110 [...] (Auto) (14.0 - 32.0 %) 7.0 L [place] % (Auto) (4.8 - 9.0 %) 3.3 L Eos % (Auto) (0.3 - 3.7 %) 0.3 Baso % (Auto) (0.0 - 2.0 %) 0.1 Neut # (Auto) (2.0 - 7.6 x10 3/uL) 14.14 H Lymph # (Auto) (1.0 - 3.8 x10 3/uL) 1.11 [place] # (Auto) (0.1 - 0.8 x10 3/uL) [...] (Auto) (14.0 - 32.0 %) 7.4 L [place] % (Auto) (4.8 - 9.0 %) 3.9 L Eos % (Auto) (0.3 - 3.7 %) 0.5 Baso % (Auto) (0.0 - 2.0 %) 0.1 Neut # (Auto) (2.0 - 7.6 x10 3/uL) 15.49 H Lymph # (Auto) (1.0 - 3.8 x10 3/uL) 1.31 [place] # (Auto) (0.1 - 0.8 x10 3/uL) [...] pH (5.0 - 7.0) 5.0 Ur Specific [place] (1.005 - 1.030) 1.012 Urine Protein (NEGATIVE) [...] (Auto) (14.0 - 32.0 %) 8.1 L [place] % (Auto) (4.8 - 9.0 %) 4.3 L Eos % (Auto) (0.3 - 3.7 %) 0.5 Baso % (Auto) (0.0 - 2.0 %) 0.1 Neut # (Auto) (2.0 - 7.6 x10 3/uL) 15.44 H Lymph # (Auto) (1.0 - 3.8 x10 3/uL) 1.45 [place] # (Auto) (0.1 - 0.8 x10 3/uL) [...] (Auto) (14.0 - 32.0 %) 4.8 L [place] % (Auto) (4.8 - 9.0 %) 2.9 L Eos % (Auto) (0.3 - 3.7 %) 0.0 L Baso % (Auto) (0.0 - 2.0 %) 0.2 Neut # (Auto) (2.0 - 7.6 x10 3/uL) 19.90 H Lymph # (Auto) (1.0 - 3.8 x10 3/uL) 1.10 [place] # (Auto) (0.1 - 0.8 x10 3/uL) [...] (Auto) (14.0 - 32.0 %) 3.8 L [place] % (Auto) (4.8 - 9.0 %) 3.7 L Eos % (Auto) (0.3 - 3.7 %) 0.0 L Baso % (Auto) (0.0 - 2.0 %) 0.3 Neut # (Auto) (2.0 - 7.6 x10 3/uL) 17.97 H Lymph # (Auto) (1.0 - 3.8 x10 3/uL) 0.76 L [place] # (Auto) (0.1 - 0.8 x10 3/uL) [...] pH (5.0 - 7.0) 5.0 Ur Specific [place] (1.005 - 1.030) 1.013 Urine Protein (NEGATIVE) [...] (Auto) (14.0 - 32.0 %) 4.3 L [place] % (Auto) (4.8 - 9.0 %) 3.1 L Eos % (Auto) (0.3 - 3.7 %) 0.0 L Baso % (Auto) (0.0 - 2.0 %) 0.3 Neut # (Auto) (2.0 - 7.6 x10 3/uL) 19.17 H Lymph # (Auto) (1.0 - 3.8 x10 3/uL) 0.91 L [place] # (Auto) (0.1 - 0.8 x10 3/uL) [...] 1209 Anaerobic Culture - RES ABSCESS 08/19 121 Gram Stain - RES ABSCESS Recent Impressions:ULTRASOUND - DUP LE ART UNI/LTD 08/19 949 Report Impression - Status: SIGNED Entered: 08/19/2022 [...] IV antibiotics.For wound debridement. at 1746 RPT #:[id number] OF REPORTPRProgress allz1594-74-91F81:45:00G.FKFV95074466-9833Z VAvailable for patient krceBLLKMEYOWMSGDU1726-13-76J89:46:56 [facility] 2022-08-28 14:47:00 [id number]+jcI+a6irJ9FoFsIHM1yx7qE+ CWH tGdk5a0HOCkh++OtFsMw0DeKY6OUl+Y7E6060-80-72 T14:47:00 [facility])Podiatry Progress NoteREPORT#:[id number] REPORT STATUS: SignedDATE:08/28/22 TIME: 1447 PATIENT: KARMA ROWLAND UNIT #: [id number]#: [id number] [address] AGE: 56 SEX: M ATTEND: [...] 0700: 04/06 0700 04/05 1900 Intake Total 76216.00 Output Total 83765 Balance 290.00 Intake, IV 160.00 Intake, Oral 1380 Intake, Other 08183 Number 2 Bowel Movements Output, Other 49308 Patient 74.9 kg Weight Weight Bed scale [...] (Auto) (14.0 - 32.0 %) 8.2 L [place] % (Auto) (4.8 - 9.0 %) 4.1 L Eos % (Auto) (0.3 - 3.7 %) 0.4 Baso % (Auto) (0.0 - 2.0 %) 0.1 Neut # (Auto) (2.0 - 7.6 x10 3/uL) 11.92 H Lymph # (Auto) (1.0 - 3.8 x10 3/uL) 1.13 [place] # (Auto) (0.1 - 0.8 x10 3/uL) [...] u/s left no dvt at 1448 RPT #:[id number] OF REPORTPRProgress [id number] VAvailable for patient [id number]:48:40 [facility] 2022-08-28 14:44:00 [id number] dIJ YH+jAiKyO[id number] T14:44:00 [facility] ([facility])Infectious Dis. Progress NoteREPORT#:[id number] REPORT STATUS: SignedDATE:08/28/22 TIME: 1444 PATIENT: KARMA ROWLAND UNIT #: [id number]#: [id number] [address] AGE: 56 SEX: M ATTEND: [facility] AUTHOR: Merry Wolff MD * ALL edits [...] afebrile, WBC down to 15.9 from 17.7, 4/6 Pt had right BKA today, afebrile, WBC 13.8 from 15.9Nursing reports:No: agitated, cough, diarrhea, fever. Portions of this section were scribed by Jill Quintero on 08/28/22 at 1856 Objective GeneralVS/I O:Vital Signs Date Temp Pulse Resp B/P B/P Mean Pulse Ox FiO2 04/05-04/06 97.5-98.5 80-97 7-25 97-158/54-73 69-105 93-100 Last [...] 04/05 2115 85 17 138/66 95 96 08/27 2099 85 13 142/66 95 96 08/27 2044 86 14 154/73 105 97 08/27 2029 86 14 144/66 98 97 08/27 2014 83 11 138/68 95 97 08/28 1999 97.9 08/28 1999 83 10 140/71 100 98 08/27 1944 84 12 140/69 99 97 08/27 1930 85 12 155/73 105 99 08/27 1914 85 14 154/73 105 100 08/27 1900 87 15 158/72 104 93 24 hour I O ending at 0700: 08/28 0708/27 1900 Intake Total 06815.00 Output Total 11703 Balance 290.00 Intake, IV 160.00 Intake, Oral 1380 Intake, Other 65980 Number 2 Bowel Movements Output, Other 47803 Patient 74.9 kg Weight Weight Bed scale [...] urinary catheter ( on CBI)Extremities: edema, right BKANeuro/CONTRACT RUNNER: alert, 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 Considered stroke alert: noSkin: lesions, no rashPsychiatry: normal affect, normal mood ResultsFindings/Data:Laboratory Tests 08/28 08/28 08/28 08/28 08/27 1302 1218 0699 0420 2049Chemistry Sodium (134 - 147 mEq/L) [...] (Auto) (14.0 - 32.0 %) 8.2 L [place] % (Auto) (4.8 - 9.0 %) 4.1 L Eos % (Auto) (0.3 - 3.7 %) 0.4 Baso % (Auto) (0.0 - 2.0 %) 0.1 Neut # (Auto) (2.0 - 7.6 x10 3/uL) 11.92 H Lymph # (Auto) (1.0 - 3.8 x10 3/uL) 1.13 [place] # (Auto) (0.1 - 0.8 x10 3/uL) [...] (Auto) (14.0 - 32.0 %) 8.2 L [place] % (Auto) (4.8 - 9.0 %) 4.1 L Eos % (Auto) (0.3 - 3.7 %) 0.4 Baso % (Auto) (0.0 - 2.0 %) 0.1 Neut # (Auto) (2.0 - 7.6 x10 3/uL) 11.92 H Lymph # (Auto) (1.0 - 3.8 x10 3/uL) 1.13 [place] # (Auto) (0.1 - 0.8 x10 3/uL) [...] 0.00x10 3/uL) 08/27 08/27 08/27 08/27 08/27 1825 [...] 5.0 g/dL) 1.30 L 08/27 08/26 08/26 2468 2041 1739 Chemistry POC Glucose (70 - [...] (Auto) (14.0 - 32.0 %) 7.0 L [place] % (Auto) (4.8 - 9.0 %) 3.3 L Eos % (Auto) (0.3 - 3.7 %) 0.3 Baso % (Auto) (0.0 - 2.0 %) 0.1 Neut # (Auto) (2.0 - 7.6 x10 3/uL) 14.14 H Lymph # (Auto) (1.0 - 3.8 x10 3/uL) 1.11 [place] # (Auto) (0.1 - 0.8 x10 3/uL) [...] 08/29 1347 Blood Culture - RECD BLOOD 08/26 2216 Wound Culture - RES ABSCESS CITROBACTER FARMERI ENTEROCOCCUS 08/26 2216 Anaerobic Culture - RES ABSCESS 08/26 2216 Gram Stain - RES ABSCESS Recent Impressions:ULTRASOUND [...] PRN 08/28 1045 DC IV 08/28 203 Fentanyl Citrate 50 MCG PACU Q10MIN PRN PRN 08/28 1045 DC IV 08/28 203 Hydrocodone Bitart/ 1 TAB PACU ONCE 08/28 1045 DC Acetaminophen PO 08/28 203 Hydromorphone HCl 1 MG PACU Q10MIN PRN PRN 08/28 1045 DC IV 08/28 203 Hydromorphone HCl 0.5 MG PACU Q5MIN PRN PRN 08/28 1045 DC IV 08/28 203 Meperidine HCl 12.5 MG PACU ONCE PRN 08/28 1045 DC IV 08/28 203 Morphine Sulfate 2 MG PACU Q10MIN PRN PRN 08/28 1045 DC IV 08/28 203 Tramadol HCl 50 MG PACU ONCE 08/28 1045 DC PO 08/28 203 Fentanyl Citrate 0 .STK-MED ONE 08/28 09 DC .ROUTE Midazolam HCl 0 .STK-MED ONE 08/28 09 DC .ROUTE Propofol 20 ML .STK-MED ONE 08/28 09 DC IV Acetaminophen 1,000 MG PREOP ONCALL 08/27 1929 CKD PO 09/26 235 Gabapentin 200 MG PREOP ONCALL 08/27 1929 CKD PO 09/26 235 Lorazepam 1 MG ONCE PRN 08/21 899 AC 08/21 IV 09/20 0859 1143 Acetaminophen 650 MG Q6H PRN PRN 08/18 0945 AC 08/28 PO 09/17 0944 0255 Electrolytic, Caloric, And Daniel Sig/Jan Start time Last Medication Dose Route Stop Time Status Admin Lactated Ringer's 1,000 ML PREOP ONCALL 08/27 1929 AC IV 05/05 2359 Sodium Chloride 500 ML PREOP ONCALL 08/27 193 AC IV 09/26 235 Sodium Chloride 500 ML PREOP ONCALL 08/27 193 AC IV 09/26 235 Sodium Chloride 1,000 ML PREOP ONCALL 08/27 193 AC IV 09/26 235 Sodium Chloride 5 ML ASDIR PRN 08/27 193 AC IV 09/26 192 Sodium Chloride 10 ML ASDIR PRN 08/27 193 AC IV 09/26 192 Sodium Chloride 250 ML ASDIR PRN 08/27 193 AC IV 09/26 192 Sodium Chloride 0 ASDIR PRN 08/21 0900 [...] PRN 08/28 1045 DC IV 08/28 203 Ondansetron HCl 0 .STK-MED [...] PACU ONCE PRN 08/28 1045 DC SUBQ 08/28 203 Insulin Glargine 15 UNIT BEDTIME 08/27 2100 AC 08/27 SUBQ 09/26 2058 214 Insulin Glargine 25 UNIT BEDTIME 08/20 2100 DC 08/24 SUBQ 09/19 205 2132 Insulin Human Lispro 7 UNIT AC 08/20 1630 AC 08/28 SUBQ 09/19 1629 1319 Insulin Human Lispro 0 [facility] 08/20 1630 AC 08/28 SUBQ 09/19 1629 1319 Glucagon 1 MG ASDIR PRN 08/20 1530 AC IM 09/19 1529 Local Anesthetics (Parenteral) Sig/Jan Start time Last Medication Dose Route Stop Time Status Admin Ropivacaine 150 MG ASDIR PRN 08/28 1045 DC LOCAL 08/29 2035 Microbiology:08/28 1348 BLOOD: Blood Culture - RECD08/28 1348 BLOOD: Blood Culture - RECD08/26 221 ABSCESS: Wound Culture - RES CITROBACTER FARMERI OMEOGJPALGUC62/04 2217 ABSCESS: Anaerobic Culture - RES08/26 221 ABSCESS: Gram Stain - RES Recent Impressions:ULTRASOUND [...] Discussed with Dr. Du about MRI report /-plan for transrectal aspiration of abscess today-repeat blood cx are still (+)Ve; will repeat blood cx tomorrow-cont on daptomycin and Teflaro day #2-Pt needs a JIMENA r/o endocarditis as pt has high grade persistent bacteremia-plan for Right BKA on 08/28 4/5-s/p transrectal aspiration and unroofing of abscess; cx GNR; will follow- repeat blood cx today--cont on daptomycin and Teflaro day #3-Pt needs a JIMENA r/o endocarditis as pt has high grade persistent bacteremia-plan for Right BKA on 08/28 4/6s/p right BKA-repeat blood cx sent today-cont on Daptomycin day #4 -NEeds a JIMENA r/o endocarditis-prostate abscess: Coag (+)Ve staph, citrobacter and Enterococcus; on Merrem day#2 Portions of this section were scribed by Jill Quintero on 08/28/22 at 1856 at 0810 RPT #:[id number] OF REPORTPRProgress civf7056-82-53G15:44:00G.KGSJ90408646-9735P VAvailable for patient vyrjOGSHAAKIEGDUUO2432-88-42A30:12:15 [facility] 2022-08-28 12:06:00 [id number]/c37QLUJd3FHZVX hGY 7GwgotHo8HMfFL35XxlsiZLDJBAdj+MEt2679-76-73 T12:06:483865-[address] [address] PATIENT NAME: KARMA ROWLAND ADMIT DATE: 08/18/22ACCOUNT NO: [id number] ROOM NO: [facility] AGE: 56 REPORT TYPE: OPERATIVE REPORT SEX: [...] further clinical worsening. Extremity was marked by thesurgeon, confirmed by the patient. Consent was obtained [...] periosteallyelevated proximally as well as posteriorly. An Army-Fontanet was placed posteriorto the tibia to protect [...] holes were placed. We then placed two Roby sutures with #5 Ethibond and the fascia [...] Dictated: 08/28/2022 12:06:09Date Transcribed: 08/28/2022 13:10:48JJ/TONI/AHMJob #: [id number] ID: [id number] and Edited by Nixon Leroy MD On 10/15/22 8:24:59 PM at 0827 PATIENT NAME: KARMA ROWLAND nmvhky1291-90-35U24:10:00G.YKR70971388-5635 AVAvailable for patient mirgKXOWIGEMOAYHYV5372-82-10Y33:27:49 [facility] 2022-08-28 11:57:00 [id number]/B5R4oNuJdM 7nf muxrZO3vpMi3UrFAS5qWXBwOJ4CGi81U79047-71-73 T11:57:00 [facility] ([facility])Op/Inv Procedure Note - BriefREPORT#:[id number] REPORT STATUS: SignedDATE:08/28/22 TIME: 1157 PATIENT: KARMA ROWLAND UNIT #: [id number]#: [id number] [facility] AGE: 56 SEX: M ATTEND: Wilbert Ramires MDA AUTHOR: Nixon Leroy MD * ALL edits or amendments must be made on the electronic/computer document * Op/Inv Proc Note - Brief TEXT Brief Op/Inv Procedure NoteNote details:*PRE-PROCEDURE DIAGNOSIS:[] right foot and ankle gangrene *POST-PROCEDURE DIAGNOSIS:Same[] *PROCEDURE(S) PERFORMED:[]1. right below knee amputation *PRIMARY SURGEON:[]MD Alfred *DIRECTOR SOFTWARE QUALITY ASSURANCE(S):[]Meaghan Josue, PGY-3 ANESTHETIC:[]geta *ESTIMATED BLOOD LOSS in ml's:[]50 mL *SPECIMEN(S) REMOVED:[]right lower leg *COMPLICATIONS:None[] DRAIN(S):Hemovac x 1[] TUBE(S):None[] IMPLANT(S):None[] FLUIDS:[]500 cc LR URINE OUTPUT:[]n/a *FINDINGS:[]as above DISPOSITION:To PACU[]NWB RLEmonitor vac outputwill need consult for Kromatid stump protector [id number] at 1206 RPT #:[id number] OF REPORTPNProcedure lpab8452-97-39J03:57:00G.PNTG70693812-7043T VAvailable for patient qvjbFFDQDRJZPGIAUX6948-32-19Y81:06:54 [facility] 2022-08-28 09:52:00 [id number]5sV1 [facility] P7OO2+BmsX5E39P1v2WJoNyEPw8x51Wpe0689-63-51 T09:52:00 [facility] ([facility])Cardiology Progress NoteREPORT#:[id number] REPORT STATUS: SignedDATE:08/28/22 TIME: 951 PATIENT: KARMA ROWLAND UNIT #: [id number]#: [id number] [facility] AGE: 56 SEX: M ATTEND: Wilbert Ramires AUTHOR: Rohit Benitez MACHINIST APPRENTICE [employer]OD * ALL edits or amendments must be made on the electronic/computer document * Rohit Benitez 08/28/22 0952:SubjectiveChief complaint:foot infection Free Text Subj NotesFree Text Subj Notes:Chart reviewed. No new events overnight. Plan for right BKA today. Objective GeneralVS/I O:24 hour I O ending at 0700: 04/06 0700 04/05 1900 Intake Total 19685.00 Output Total 34215 Balance 290.00 Intake, IV 160.00 Intake, Oral 1380 Intake, Other 46829 Number 2 Bowel Movements Output, Other 84156 Patient 165 lb Weight Weight Bed scale Measurement Method Vital Signs: Date Time Temp Pulse Resp B/P B/P Pulse O2 O2 Flow FiO2 Mean Ox Delivery Rate 04/06 0900 86 17 124/64 87 96 04/06 0800 [...] to auscultation, no distressLower extremity: LE assessment: edemaNeuro/CONTRACT RUNNER: alert, oriented X 3 Considered stroke alert: [...] (Auto) (14.0 - 32.0 %) 8.2 L [place] % (Auto) (4.8 - 9.0 %) 4.1 L Eos % (Auto) (0.3 - 3.7 %) 0.4 Baso % (Auto) (0.0 - 2.0 %) 0.1 Neut # (Auto) (2.0 - 7.6 x10 3/uL) 11.92 H Lymph # (Auto) (1.0 - 3.8 x10 3/uL) 1.13 [place] # (Auto) (0.1 - 0.8 x10 3/uL) [...] Report Impression - Status: SIGNED Entered: 08/28/2022 2445 IMPRESSION: 1. No evidence of venous thrombosis [...] RN and Dr. Parham. Napoleon Parham 08/29/22 1725:Diagnosis, Assessment PlanAdditional comments:Patient was seen and examined at bedside, agree with above assessment and plan as documented by nurse practitioner. Will follow. at 1836 at 1732 RPT #:[id number] OF REPORTPRProgress dmim1553-96-32R83:52:00G.PTWN19683558-1567N VAvailable for patient xkqcHVQLOXJXIIFHHV9341-80-90W87:36:35 [facility] 2022-08-28 08:03:00 [id number]+UsNnin1C6ZEGa BOT dMXGPJN8Ip7+9vz7/N+83LphsRtq0PZCz3001-63-91 T08:03:00 [facility] HospitalHospitalist Progress NoteREPORT#:[id number] REPORT STATUS: SignedDATE:08/28/22 TIME: 802 PATIENT: KARMA ROWLAND UNIT #: [id number]#: [id number] [address]JW: [address] AGE: 56 SEX: M ATTEND: Wilbert Ramires AUTHOR: Wilbert Ramires MD * ALL edits or amendments must be made on the electronic/computer document * SubjectiveChief complaint:AMS and right foot infection. s/p extensivedebridement. (+) pain in left leg x3 days Review of SystemsAll systems rev neg: except as noted Objective GeneralVS/I O:Vital Signs: Date Time Temp Pulse Resp B/P B/P Pulse O2 O2 Flow FiO2 Mean Ox Delivery Rate 04/06 0645 87 14 115/60 82 94 [...] 04/05 1000 82 12 132/61 88 97 /09 3045 82 12 125/62 84 97 / 0930 82 13 130/64 90 98 / 0915 84 15 137/73 99 100 /05 0900 87 19 140/67 97 96 / 0845 88 17 152/73 105 98 / 0830 82 15 148/70 100 99 08/27 0815 83 14 127/66 91 100 24 hour I O ending at 0700: 08/28 0700 04 1900 Intake Total 81584.00 Output Total 36097 Balance 290.00 Intake, IV 160.00 Intake, Oral 1380 Intake, Other 06689 Number 2 Bowel Movements Output, Other 37462 Patient 74.9 kg Weight Weight Bed scale [...] distentionGenitourinary: no bladder distentionExtremities: R foot in dressingNeuro/CONTRACT RUNNER: alert, oriented X 3, 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 Considered stroke alert: noSkin: no rashPsychiatry: normal affect, normal judgment/insight, normal mood ResultsFindings/Data:Laboratory Tests 08/28 0420 2050 1825 1728Chemistry Sodium (134 - [...] (Auto) (14.0 - 32.0 %) 8.2 L [place] % (Auto) (4.8 - 9.0 %) 4.1 L Eos % (Auto) (0.3 - 3.7 %) 0.4 Baso % (Auto) (0.0 - 2.0 %) 0.1 Neut # (Auto) (2.0 - 7.6 x10 3/uL) 11.92 H Lymph # (Auto) (1.0 - 3.8 x10 3/uL) 1.13 [place] # (Auto) (0.1 - 0.8 x10 3/uL) [...] - will likely need wound vac and medical terminologist IV antibiotic therapy - d/w at bedside [...] - d/w at bedside at 0806 RPT #:[id number] OF REPORTPRProgress ulkw7918-74-60F42:03:00G.FZIS19666305-9909K VAvailable for patient eufvSLUUDGGFAFWFTY1188-40-77O81:06:32 [facility] 2022-08-27 20:10:00 [id number]/RgEXa+/FQpnaO55j3ZZI9 Js6 exN3K4JmX60Mx85QRlJ01Yh0dye40m6Rn7412-14-48 T20:10:00 [facility] HospitalPodiatry Progress NoteREPORT#:[id number] REPORT STATUS: SignedDATE:08/27/22 TIME: 2009 PATIENT: KARMA ROWLAND UNIT #: [id number]#: [id number] [address]MWL: [address] AGE: 56 SEX: M ATTEND: Wilbert [...] Result Date Time Pulse Ox 93 08/27 1899 B/P 158/72 08/27 1899 B/P Mean 104 08/27 1899 Pulse 87 08/27 1899 Resp 15 08/27 1899 Temp 36.9 08/27 1600 O2 Delivery Room [...] 0700: 04/05 0700 04/04 1900 Intake Total 73546.00 950.00 Output Total 81728 850 Balance -1845.00 100.00 Intake, IV 805.00 [...] (Auto) (14.0 - 32.0 %) 7.0 L [place] % (Auto) (4.8 - 9.0 %) 3.3 L Eos % (Auto) (0.3 - 3.7 %) 0.3 Baso % (Auto) (0.0 - 2.0 %) 0.1 Neut # (Auto) (2.0 - 7.6 x10 3/uL) 14.14 H Lymph # (Auto) (1.0 - 3.8 x10 3/uL) 1.11 [place] # (Auto) (0.1 - 0.8 x10 3/uL) [...] with Dr. Leroy tomorrow at 2012 RPT #:[id number] OF REPORTPRProgress epjp7809-05-11Z61:10:00G.PAXO96624168-8660X VAvailable for patient vyzzRAEVUEWMUNZJVV3431-86-75J56:12:34 [facility] 2022-08-27 18:19:00 [id number]2VE7 U VFDKdJ7qfEWcgrDeU5P8Q0AI/4oivWW4n5477-19-71 T18:19:00 [facility])Endocrinology Progress NoteREPORT#:[id number] REPORT STATUS: SignedDATE:08/27/22 TIME: 1818 PATIENT: KARMA ROWLAND UNIT #: [id number]#: [id number] [address] AGE: 56 SEX: M ATTEND: Wilbert Ramires [facility] AUTHOR: Braxton Chapin MD * ALL edits or amendments must be made on the electronic/computer document * SubjectivePatient reports: no complaints Objective GeneralVS:Last Documented: Result Date Time Temp 36.7 08/27 1200 Pulse Ox 98 / 0545 B/P 138/68 08/27 0545 B/P Mean [...] (Auto) (14.0 - 32.0 %) 7.0 L [place] % (Auto) (4.8 - 9.0 %) 3.3 L Eos % (Auto) (0.3 - 3.7 %) 0.3 Baso % (Auto) (0.0 - 2.0 %) 0.1 Neut # (Auto) (2.0 - 7.6 x10 3/uL) 14.14 H Lymph # (Auto) (1.0 - 3.8 x10 3/uL) 1.11 [place] # (Auto) (0.1 - 0.8 x10 3/uL) [...] (Auto) (14.0 - 32.0 %) 7.4 L [place] % (Auto) (4.8 - 9.0 %) 3.9 L Eos % (Auto) (0.3 - 3.7 %) 0.5 Baso % (Auto) (0.0 - 2.0 %) 0.1 Neut # (Auto) (2.0 - 7.6 x10 3/uL) 15.49 H Lymph # (Auto) (1.0 - 3.8 x10 3/uL) 1.31 [place] # (Auto) (0.1 - 0.8 x10 3/uL) [...] pH (5.0 - 7.0) 5.0 Ur Specific [place] (1.005 - 1.030) 1.012 Urine Protein (NEGATIVE) [...] (Auto) (14.0 - 32.0 %) 8.1 L [place] % (Auto) (4.8 - 9.0 %) 4.3 L Eos % (Auto) (0.3 - 3.7 %) 0.5 Baso % (Auto) (0.0 - 2.0 %) 0.1 Neut # (Auto) (2.0 - 7.6 x10 3/uL) 15.44 H Lymph # (Auto) (1.0 - 3.8 x10 3/uL) 1.45 [place] # (Auto) (0.1 - 0.8 x10 3/uL) [...] (Auto) (14.0 - 32.0 %) 4.8 L [place] % (Auto) (4.8 - 9.0 %) 2.9 L Eos % (Auto) (0.3 - 3.7 %) 0.0 L Baso % (Auto) (0.0 - 2.0 %) 0.2 Neut # (Auto) (2.0 - 7.6 x10 3/uL) 19.90 H Lymph # (Auto) (1.0 - 3.8 x10 3/uL) 1.10 [place] # (Auto) (0.1 - 0.8 x10 3/uL) [...] (Auto) (14.0 - 32.0 %) 3.8 L [place] % (Auto) (4.8 - 9.0 %) 3.7 L Eos % (Auto) (0.3 - 3.7 %) 0.0 L Baso % (Auto) (0.0 - 2.0 %) 0.3 Neut # (Auto) (2.0 - 7.6 x10 3/uL) 17.97 H Lymph # (Auto) (1.0 - 3.8 x10 3/uL) 0.76 L [place] # (Auto) (0.1 - 0.8 x10 3/uL) [...] pH (5.0 - 7.0) 5.0 Ur Specific [place] (1.005 - 1.030) 1.013 Urine Protein (NEGATIVE) [...] (Auto) (14.0 - 32.0 %) 4.3 L [place] % (Auto) (4.8 - 9.0 %) 3.1 L Eos % (Auto) (0.3 - 3.7 %) 0.0 L Baso % (Auto) (0.0 - 2.0 %) 0.3 Neut # (Auto) (2.0 - 7.6 x10 3/uL) 19.17 H Lymph # (Auto) (1.0 - 3.8 x10 3/uL) 0.91 L [place] # (Auto) (0.1 - 0.8 x10 3/uL) [...] RES ABSCESS Recent Impressions:ULTRASOUND - DUP LE [place] UNI/LTD 08/19 0950 Report Impression - Status: [...] or neoplasm. Impression By: Mark - Dom Plymouth, M.D.RADIOLOGY - XR FOOT 3 + V [...] and IV antibiotics.For wound debridement. at 1820 [facility] #:[id number] OF REPORTPRProgress wzrh3578-00-47G02:19:00G.ATVE83262264-4070Y VAvailable for patient lzxiSPVWIQBHNURFYI2866-44-08Q36:21:15 [facility] 2022-08-27 16:51:00 [id number]fQyC vbF beHs8vUKcKWRYtHsu+radIlMoTedqOOEf4505-85-28 T16:51:00 [facility] ([facility])Orthopaedic Progress NoteREPORT#:[id number] REPORT STATUS: SignedDATE:08/27/22 TIME: 1651 PATIENT: KARMA ROWLAND UNIT #: [id number]#: [id number] [facility] AGE: 56 SEX: M ATTEND: Wilbert Ramires [facility] AUTHOR: Nixon Leroy MD * ALL edits [...] (Auto) (14.0 - 32.0 %) 7.0 L [place] % (Auto) (4.8 - 9.0 %) 3.3 L Eos % (Auto) (0.3 - 3.7 %) 0.3 Baso % (Auto) (0.0 - 2.0 %) 0.1 Neut # (Auto) (2.0 - 7.6 x10 3/uL) 14.14 H Lymph # (Auto) (1.0 - 3.8 x10 3/uL) 1.11 [place] # (Auto) (0.1 - 0.8 x10 3/uL) [...] for surgery on 08/28/2022. at 1654 RPT #:[id number] OF REPORTPRProgress bwxz6589-60-52J17:51:00G.AGWU37779130-8515M VAvailable for patient txcvSDIFZMUSFXXCHA2938-42-24A54:55:21 [facility] 2022-08-27 15:20:00 [id number]+RH9cic2doKuFlyScx5Gw3 qjF BXtElT3nmoEbnQKmBT+KiMn3tkMvzoNLV6463-04-95 T15:20:00 [facility] ([facility])Hospitalist Progress NoteREPORT#:[id number] REPORT STATUS: SignedDATE:08/27/22 TIME: 1520 PATIENT: KARMA ROWLAND UNIT #: [id number]#: [id number] [address] AGE: 56 SEX: M ATTEND: Wilbert Ramires [facility] AUTHOR: Musa Enriquez MD * ALL edits [...] 04/04 2050 79 15 126/62 96 04/04 9 79 14 95 04/04 2045 78 17 [...] 04/04 1731 88 15 146/107 123 98 04/ 1715 86 15 152/75 107 99 04/04 1700 87 16 150/74 106 100 04/ 1645 85 14 164/75 108 100 04/ 1630 86 13 159/75 108 100 04/ 1615 84 12 134/61 88 99 04/04 1613 36.7 87 14 138/63 100 04/04 1611 86 12 138/63 91 100 04/04 1600 36.6 04/ 1600 85 12 170/76 109 100 0404 1553 36.6 86 14 151/74 100 04/04 1549 36.6 85 14 151/74 100 04/ 1545 86 15 151/74 106 100 / 1530 86 31 168/71 102 98 24 hour I O ending at 0700: 08/27 0700 04 1900 Intake Total 67196.00 950.00 Output Total 04468 850 Balance -1845.00 100.00 Intake, IV 805.00 [...] distentionGenitourinary: no bladder distentionExtremities: R foot in dressingNeuro/CONTRACT RUNNER: alert, oriented X 3, 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 Considered [...] - will likely need wound vac and skilled nursing IV antibiotic therapy - d/w at bedside [...] with insulin DVT prophylaxis at 1522 RPT #:[id number] OF REPORTPRProgress qfxq2468-89-75I57:20:00G.SMHE46921638-1681B VAvailable for patient sfiiQEUZHBVOAIXPGT5751-72-73E26:22:29 [facility] 2022-08-27 15:13:00 [id number]fk6q mDp HvQbflpT/xw2g9SOWzykwn2QM9XWEku128279-04-00 T15:13:00 [facility] ([facility])Infectious Dis. Progress NoteREPORT#:[id number] REPORT STATUS: SignedDATE:08/27/22 TIME: 1513 PATIENT: KARMA ROWLAND UNIT #: [id number]#: [id number] [address] AGE: 56 SEX: M ATTEND: Wilbert Ramires MDADM AUTHOR: Merry Wolff MD * ALL edits [...] Last Documented: Result Date Time Temp 98.1 08/27 1200 Pulse Ox 98 / 0545 B/P 138/68 04/ 0545 B/P Mean 94 / 0545 Pulse 83 / 0545 Resp 15 / 0545 O2 Delivery Room air 08/26 2100 O2 Flow Rate 6 08/26 2038 Vital Signs: Date Time Temp Pulse Resp B/P B/P Pulse O2 O2 Flow FiO2 Mean Ox Delivery Rate / 1200 98.1 / 0800 98.0 04/05 0545 83 15 138/68 [...] 13 139/67 95 99 Room air 04/04 2054 79 12 133/63 90 99 04/04 2049 79 15 126/62 86 96 04/04 2049 79 15 126/62 96 04/04 2048 79 14 95 04/04 2044 78 17 129/65 90 100 04/04 2044 78 17 129/65 100 04/04 2039 78 9 128/67 91 100 04/04 2038 [...] 0700: 04/05 0700 04/04 1900 Intake Total 07181.00 950.00 Output Total 51849 850 Balance -1845.00 100.00 Intake, IV 805.00 [...] ( on CBI)Extremities: edema, RLE pitting edema notedNeuro/CONTRACT RUNNER: alert, 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 Considered stroke alert: [...] - 110 MG/DL) 169 H Laboratory Tests 08/27 0418 Hematology [...] (Auto) (14.0 - 32.0 %) 7.0 L [place] % (Auto) (4.8 - 9.0 %) 3.3 L Eos % (Auto) (0.3 - 3.7 %) 0.3 Baso % (Auto) (0.0 - 2.0 %) 0.1 Neut # (Auto) (2.0 - 7.6 x10 3/uL) 14.14 H Lymph # (Auto) (1.0 - 3.8 x10 3/uL) 1.11 [place] # (Auto) (0.1 - 0.8 x10 3/uL) [...] Tests: 08/27 08/27 08/27 08/27 08/26 1147 3761 2972 8699 2041Chemistry Sodium (134 - 147 mEq/L) 137 [...] (Auto) (14.0 - 32.0 %) 7.0 L [place] % (Auto) (4.8 - 9.0 %) 3.3 L Eos % (Auto) (0.3 - 3.7 %) 0.3 Baso % (Auto) (0.0 - 2.0 %) 0.1 Neut # (Auto) (2.0 - 7.6 x10 3/uL) 14.14 H Lymph # (Auto) (1.0 - 3.8 x10 3/uL) 1.11 [place] # (Auto) (0.1 - 0.8 x10 3/uL) [...] 08/26 08/26 08/26 08/25 1739 1307 0906 7850 2008Chemistry Sodium (134 - 147 mEq/L) 136 [...] (Auto) (14.0 - 32.0 %) 7.4 L [place] % (Auto) (4.8 - 9.0 %) 3.9 L Eos % (Auto) (0.3 - 3.7 %) 0.5 Baso % (Auto) (0.0 - 2.0 %) 0.1 Neut # (Auto) (2.0 - 7.6 x10 3/uL) 15.49 H Lymph # (Auto) (1.0 - 3.8 x10 3/uL) 1.31 [place] # (Auto) (0.1 - 0.8 x10 3/uL) [...] PACU ONCE PRN 08/26 1929 DC IV 08/28 523 Promethazine HCl 25 MG PACU ONCE PRN 08/26 1929 DC PO 08/27 0524 Blood Formation,Coagulation Sig/Jan Start time Last Medication Dose Route Stop Time Status Admin Heparin Sodium 5,000 UNIT Q8HR 08/18 06 AC 08/27 SUBQ 09/17 0559 1323 Cardiovascular Drugs Sig/Jan Start time Last Medication Dose Route Stop Time Status Admin Hydralazine HCl 5 MG PACU Q10MIN PRN PRN 08/26 1929 DC IV 08/27 0424 Labetalol HCl 5 [...] PRN 08/26 1929 DC IV 08/27 0424 Hydrocodone Bitart/ 1 TAB PACU ONCE 08/26 1929 DC Acetaminophen PO 08/28 523 Hydromorphone HCl 1 MG PACU Q10MIN PRN PRN 08/26 1929 DC IV 08/28 523 Hydromorphone HCl 0.5 MG PACU Q5MIN PRN PRN 08/26 1929 DC IV 08/28 523 Meperidine HCl 12.5 MG PACU ONCE PRN 08/26 1929 DC IV 08/28 523 Morphine Sulfate 2 MG PACU Q10MIN PRN PRN 08/26 1929 DC IV 08/28 523 Tramadol HCl 50 MG PACU ONCE 08/26 1929 DC PO 08/28 523 Fentanyl Citrate 0 .STK-MED ONE 08/27 1919 [...] 30 GM ONCE ONE 08/27 1230 DC 04 Sulfonate PO 08/27 1231 1314 Lactated Ringer's [...] PRN 08/26 1929 DC IV 08/27 0424 Ondansetron HCl 0 .STK-MED ONE 08/26 1920 DC .ROUTE Famotidine 20 MG BID 08/21 2100 AC 08/27 PO 09/20 2058 0838 Bisacodyl [...] ONCE PRN 08/26 1930 DC SUBQ 08/27 05 Insulin Glargine 25 UNIT BEDTIME 08/20 2100 AC 08/24 SUBQ 09/19 205 213 Insulin Human Lispro 7 UNIT AC 08/20 1630 AC 08/27 SUBQ 09/19 1629 1157 Insulin Human Lispro 0 AC HS 08/20 1630 AC 08/27 SUBQ 09/19 1629 1157 Glucagon 1 MG ASDIR PRN 08/20 1530 AC IM 09/19 1529 Local Anesthetics (Parenteral) Sig/Jan Start time Last Medication Dose Route Stop Time Status Admin Ropivacaine 150 MG ASDIR PRN 08/26 1930 DC LOCAL 08/27 05 Microbiology:08/26 221 ABSCESS: Wound Culture - RES GRAM NEGATIVE ROD08/26 221 ABSCESS: Anaerobic Culture - RES08/26 2217 ABSCESS: Gram Stain - RES04/03 1044 URINE: Urine Culture - COMP04/03 1044 BLOOD: Blood Culture - RES COAG POS HYDYLSMDVWJTFY34/03 1044 BLOOD: Blood Culture Gram Stain - RES04/03 1044 BLOOD: Blood Culture - RES COAG POS ESHXRNMPUKBEXS99/03 1044 BLOOD: Blood Culture Gram Stain - [...] Jill Quintero on 08/27/22 at 1513 at 7287 RPT #:[id number] OF REPORTPRProgress hmax0536-06-92G29:13:00G.HKCV16062202-5370Z VAvailable for patient fnvlAXPIPLGMDDDZRD1304-27-28L84:17:12 [facility] 2022-08-27 10:19:00 [id number]+ki+2o3n/sbN3 Hbu v5SD40pkIdOwRErppRMP5kodELded3Lkt1833-92-90 T10:19:00 [facility] HospitalCardiology Progress NoteREPORT#:[id number] REPORT STATUS: SignedDATE:08/27/22 TIME: 1019 PATIENT: KARMA ROWLAND UNIT #: [id number]#: [id number] [facility] AGE: 56 SEX: M ATTEND: Wilbert Ramires MDA AUTHOR: Rohit Benitez MACHINIST APPRENTICE WOOD * ALL edits or amendments must be made on the electronic/computer document * Rohit Benitez 08/27/22 1019:SubjectiveChief complaint:foot infection Free Text Subj NotesFree Text Subj Notes:Patient seen and evaluated. Resting in bed, on continuous bladder irrigation. Denies chest pain or pressure. Telemetry sinus rhythm Objective GeneralVS/I O:24 hour I O ending at 0700: 08/27 0700 08/26 1900 Intake Total 02514.00 950.00 Output Total 69595 850 Balance -1845.00 100.00 Intake, IV 805.00 250.00 Intake, Oral 250 Intake, Other 9900 Intake, 700 Packed Cells Output, Other 9850 Output, Urine 2950 850 Patient 158 lb Weight Weight Bed scale Measurement Method Vital Signs: Date Time Temp Pulse Resp B/P B/P Pulse O2 O2 Flow FiO2 Mean Ox Delivery Rate 08/27 0445 83 15 138/68 94 98 08/27 0530 85 16 132/69 92 98 08/27 0515 82 11 122/61 86 98 08/27 0500 82 13 125/60 85 99 08/27 0445 83 12 127/59 84 99 08/27 0430 83 13 130/63 91 100 08/27 0429 83 13 100 04/05 0415 84 [...] 2050 79 15 126/62 86 96 04/04 0 79 15 126/62 96 04/04 2049 79 14 95 04/04 2044 78 17 129/65 90 100 04/04 2044 78 17 129/65 100 04/04 2039 78 9 128/67 91 100 04/04 2038 Simple 6 mask 04/04 2034 78 12 128/61 85 100 04/04 1999 [...] to auscultation, no distressLower extremity: LE assessment: edemaNeuro/CONTRACT RUNNER: alert, oriented X 3 Considered stroke alert: noWound/incision: Location:right footPsychiatry: normal affect, normal judgment/insight, normal mood ResultsFindings/Data:Laboratory Tests 08/27 08/27 08/27 08/26 08/26 0824 0533 8136 3108 4189Chemistry Sodium (134 - 147 mEq/L) 137 Potassium [...] (Auto) (14.0 - 32.0 %) 7.0 L [place] % (Auto) (4.8 - 9.0 %) 3.3 L Eos % (Auto) (0.3 - 3.7 %) 0.3 Baso % (Auto) (0.0 - 2.0 %) 0.1 Neut # (Auto) (2.0 - 7.6 x10 3/uL) 14.14 H Lymph # (Auto) (1.0 - 3.8 x10 3/uL) 1.11 [place] # (Auto) (0.1 - 0.8 x10 3/uL) [...] Will follow. at 1937 at 0849 RPT #:[id number] OF REPORTPRProgress [id number]:19:00G.[id number] VAvailable for patient mtkpUHSGRERRADHLNP4962-32-22U97:38:02 [facility] 2022-08-26 20:26:00 [id number] [facility] Q18/t2yfcv3IudUuoXJarrK94NlT9lY8l7554-99-97 T20:26:431586-1921 [place] [address] PATIENT NAME: KARMA ROWLAND ADMIT DATE: 08/18/22ACCOUNT NO: [id number] ROOM NO: G.458 AGE: 56 REPORT TYPE: OPERATIVE REPORT SEX: M ADMITTING PHYSICIAN:Wilbert Ramires MD ATTENDING PHYSICIAN:Wilbert Ramires MD OPERATION DATE: 08/26/2022 SURGEON: David Du MD DIRECTOR SOFTWARE QUALITY ASSURANCE: None. ANESTHESIA: General. PREOPERATIVE DIAGNOSIS: Prostate abscess. [...] bladder, removed the resectoscope and placed a 22-Welsh 3-way Camarena catheter over the wire, put 30 mL in the balloon. The patient tolerated the procedure well. There were no complications. He will be continued on continuous bladder irrigation. Dictated By: David Du MD Date Dictated: 08/26/2022 20:26:13Date Transcribed: 08/26/2022 21:06:43J/SVRJob #: [id number] PATIENT NAME: KARMA ROWLAND Receipt ID: [id number] by David Du MD On 09/17/2022 06:53:50 PM at 0653 PATIENT NAME: KARMA ROWLAND bcuple2251-56-84A91:06:00G.[id number] AVAvailable for patient vlibFOBHUXGDORRHFQ1806-56-30K08:54:10 [facility] 2022-08-26 20:04:00 [id number]/cTf2i8E YW9 zMgjxy8LiL7AN8BUDmOCOXLkjoVgmb9pp6501-94-50 T20:04:00 [facility])Podiatry Progress NoteREPORT#:[id number] REPORT STATUS: SignedDATE:08/26/22 TIME: 2003 PATIENT: KARMA ROWLAND UNIT #: [id number]#: [id number] [facility] AGE: 56 SEX: M ATTEND: Wilbert [...] Resp 17 08/26 1914 Temp 36.8 08/26 1842 O2 Delivery Room air 08/24 1899 O2 Flow Rate 2 08/21 0800 PATIENT [...] with Dr. Leroy thursday/ at 2015 RPT #:[id number] OF REPORTPRProgress [id number]:04:00G.[id number] VAvailable for patient ufiwNENJNYYNBQPOLV7039-71-31V47:15:39 [facility] 2022-08-26 17:30:00 [id number]+gVy/1LCMTSzDxLLIuH8NdMO ett NKF8sOzj3BKWs8cgpAQnGIl1Rmuvtoyaj2135-12-58 T17:30:00 [facility])Endocrinology Progress NoteREPORT#:[id number] REPORT STATUS: SignedDATE:08/26/22 TIME: 1730 PATIENT: KARMA ROWLAND UNIT #: [id number]#: [id number] [address]NMN: [address] AGE: 56 SEX: M ATTEND: Wilbert Ramires [facility] AUTHOR: Braxton Chapin MD * ALL edits [...] (Auto) (14.0 - 32.0 %) 7.4 L [place] % (Auto) (4.8 - 9.0 %) 3.9 L Eos % (Auto) (0.3 - 3.7 %) 0.5 Baso % (Auto) (0.0 - 2.0 %) 0.1 Neut # (Auto) (2.0 - 7.6 x10 3/uL) 15.49 H Lymph # (Auto) (1.0 - 3.8 x10 3/uL) 1.31 [place] # (Auto) (0.1 - 0.8 x10 3/uL) [...] pH (5.0 - 7.0) 5.0 Ur Specific [place] (1.005 - 1.030) 1.012 Urine Protein (NEGATIVE) [...] (Auto) (14.0 - 32.0 %) 8.1 L [place] % (Auto) (4.8 - 9.0 %) 4.3 L Eos % (Auto) (0.3 - 3.7 %) 0.5 Baso % (Auto) (0.0 - 2.0 %) 0.1 Neut # (Auto) (2.0 - 7.6 x10 3/uL) 15.44 H Lymph # (Auto) (1.0 - 3.8 x10 3/uL) 1.45 [place] # (Auto) (0.1 - 0.8 x10 3/uL) [...] (Auto) (14.0 - 32.0 %) 4.8 L [place] % (Auto) (4.8 - 9.0 %) 2.9 L Eos % (Auto) (0.3 - 3.7 %) 0.0 L Baso % (Auto) (0.0 - 2.0 %) 0.2 Neut # (Auto) (2.0 - 7.6 x10 3/uL) 19.90 H Lymph # (Auto) (1.0 - 3.8 x10 3/uL) 1.10 [place] # (Auto) (0.1 - 0.8 x10 3/uL) [...] (Auto) (14.0 - 32.0 %) 3.8 L [place] % (Auto) (4.8 - 9.0 %) 3.7 L Eos % (Auto) (0.3 - 3.7 %) 0.0 L Baso % (Auto) (0.0 - 2.0 %) 0.3 Neut # (Auto) (2.0 - 7.6 x10 3/uL) 17.97 H Lymph # (Auto) (1.0 - 3.8 x10 3/uL) 0.76 L [place] # (Auto) (0.1 - 0.8 x10 3/uL) [...] pH (5.0 - 7.0) 5.0 Ur Specific [place] (1.005 - 1.030) 1.013 Urine Protein (NEGATIVE) [...] (Auto) (14.0 - 32.0 %) 4.3 L [place] % (Auto) (4.8 - 9.0 %) 3.1 L Eos % (Auto) (0.3 - 3.7 %) 0.0 L Baso % (Auto) (0.0 - 2.0 %) 0.3 Neut # (Auto) (2.0 - 7.6 x10 3/uL) 19.17 H Lymph # (Auto) (1.0 - 3.8 x10 3/uL) 0.91 L [place] # (Auto) (0.1 - 0.8 x10 3/uL) [...] 121 Gram Stain - RES ABSCESS Recent Impressions:ULTRASOUND - [facility] [place] UNI/LTD 08/19 0950 Report Impression - Status: [...] IV antibiotics.For wound debridement. 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 at 1832 at 0829 RPT #:[id number] OF REPORTPRProgress twho3727-88-75Y06:50:00G.WXMP21738515-1967Q VAvailable for patient iislOIDHRYNAVAOSIZ1368-87-38P20:32:40 [facility] 2022-08-26 15:05:00 [id number]/CsBQWAyvxJBPK/7GWT8cEpbNNi gKy Lgzy0NjiVJ42g2+/j4v0HQMtuIsi3nWXS9659-54-00 T15:05:00 [facility] ([facility])Infectious Dis. Progress NoteREPORT#:[id number] REPORT STATUS: SignedDATE:08/26/22 TIME: 1505 PATIENT: KARMA ROWLAND UNIT #: [id number]#: [id number] [facility] AGE: 56 SEX: M ATTEND: Wilbert Ramires [facility] AUTHOR: Merry Wolff MD * ALL edits [...] Documented: Result Date Time Pulse Ox 100 04/ 1430 B/P 150/69 04/04 1430 Temp 98.1 04/04 1430 Pulse 84 04/04 1430 Resp 16 04/04 1430 B/P Mean 83 04/04 0600 O2 Delivery Room air 04/ 1900 O2 Flow Rate 2 30 0800 Vital Signs: Date Time Temp Pulse Resp B/P B/P Pulse O2 O2 Flow FiO2 Mean Ox Delivery Rate 04/ 1430 98.1 84 16 150/69 100 04/04 [...] soft, no distentionExtremities: edema, RLE pitting edema notedNeuro/CONTRACT RUNNER: alert, 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 Considered stroke alert: noSkin: lesions, no rashPsychiatry: normal affect, normal mood ResultsFindings/Data:Laboratory Tests 08/26 08/26 08/25 08/25 0906 [id number] 172 Chemistry Sodium (134 - 147 mEq/L) [...] (Auto) (14.0 - 32.0 %) 7.4 L [place] % (Auto) (4.8 - 9.0 %) 3.9 L Eos % (Auto) (0.3 - 3.7 %) 0.5 Baso % (Auto) (0.0 - 2.0 %) 0.1 Neut # (Auto) (2.0 - 7.6 x10 3/uL) 15.49 H Lymph # (Auto) (1.0 - 3.8 x10 3/uL) 1.31 [place] # (Auto) (0.1 - 0.8 x10 3/uL) [...] (Auto) (14.0 - 32.0 %) 7.4 L [place] % (Auto) (4.8 - 9.0 %) 3.9 L Eos % (Auto) (0.3 - 3.7 %) 0.5 Baso % (Auto) (0.0 - 2.0 %) 0.1 Neut # (Auto) (2.0 - 7.6 x10 3/uL) 15.49 H Lymph # (Auto) (1.0 - 3.8 x10 3/uL) 1.31 [place] # (Auto) (0.1 - 0.8 x10 3/uL) [...] (Auto) (14.0 - 32.0 %) 8.1 L [place] % (Auto) (4.8 - 9.0 %) 4.3 L Eos % (Auto) (0.3 - 3.7 %) 0.5 Baso % (Auto) (0.0 - 2.0 %) 0.1 Neut # (Auto) (2.0 - 7.6 x10 3/uL) 15.44 H Lymph # (Auto) (1.0 - 3.8 x10 3/uL) 1.45 [place] # (Auto) (0.1 - 0.8 x10 3/uL) [...] pH (5.0 - 7.0) 5.0 Ur Specific [place] (1.005 - 1.030) 1.012 Urine Protein (NEGATIVE) [...] Admin Fentanyl Citrate 0 .STK-MED ONE 08/25 175 DC .ROUTE Midazolam HCl 0 .STK-MED ONE 08/25 175 DC .ROUTE Propofol 0 .STK-MED ONE 08/25 [...] MG BID 08/21 2100 AC 08/26 PO 09/20 2059 0908 Bisacodyl 10 MG DAILY PRN [...] .ROUTE Microbiology:08/25 1044 URINE: Urine Culture - RES08/25 1044 BLOOD: Blood Culture - RES03 1044 BLOOD: Blood Culture Gram Stain - RES08/25 1044 BLOOD: Blood Culture - RES08/25 1044 BLOOD: Blood Culture Gram Stain - [...] on 08/26/22 at 1505 at 1812 RPT #:[id number] OF REPORTPRProgress oomj7248-48-33Y83:05:00G.DZSD34813954-3893F VAvailable for patient gdhwWEGUIOKAFVEHAS9115-03-42E85:15:02 [facility] 2022-08-26 10:10:00 [id number]kT9C O69 AT5NUoUNQx3WgwXyJXC9Uv1/CxGwGYhT+2022-08-26 T10:10:00 [facility] ([facility])Orthopaedic Consult NoteREPORT#:[id number] REPORT STATUS: SignedDATE:08/26/22 TIME: 1010 PATIENT: KARMA ROWLAND UNIT #: [id number]#: [id number] [facility] AGE: 56 SEX: M ATTEND: Wilbert Ramires [facility] AUTHOR: Nixon Leroy MD * ALL edits [...] Documented: Result Date Time Pulse Ox 99 / 0600 B/P 121/58 / 0600 B/P Mean 83 / 0600 Pulse 84 / 0600 Resp 19 08/26 0600 Temp 36.8 08/26 0400 O2 Delivery Room air 08/24 1900 [...] ResultsFindings/data:Laboratory Tests 08/26 08/26 08/25 08/25 08/25 09429 172 1111Chemistry Sodium (134 - 147 mEq/L) 136 [...] 171 Units/L) 17 L Laboratory Tests 08/26 429 Hematology WBC [...] (Auto) (14.0 - 32.0 %) 7.4 L [place] % (Auto) (4.8 - 9.0 %) 3.9 L Eos % (Auto) (0.3 - 3.7 %) 0.5 Baso % (Auto) (0.0 - 2.0 %) 0.1 Neut # (Auto) (2.0 - 7.6 x10 3/uL) 15.49 H Lymph # (Auto) (1.0 - 3.8 x10 3/uL) 1.31 [place] # (Auto) (0.1 - 0.8 x10 3/uL) [...] pH (5.0 - 7.0) 5.0 Ur Specific [place] (1.005 - 1.030) 1.012 Urine Protein (NEGATIVE) [...] 5. DVT ppx. 6. Patient liason from [facility] consulted. 7. Anesthesia pre op eval. 8. Will plan for right BKA on . at 1026 RPT #:[id number] OF REPORTEEZhrxhpfarhml4927-61-22B01:10:00G .LHON24292023-2543JRReeolglkh for patient qfhcRPZWITAVXDSIKC5231-93-47Q27:26:40 [facility] 2022-08-26 08:12:00 [id number]9WIN nBi qqa79ZV1FOpl7el6b27hoULUY+BP45bbW8238-99-70 T08:12:00 [facility])Hospitalist Progress NoteREPORT#:[id number] REPORT STATUS: SignedDATE:08/26/22 TIME: 0812 PATIENT: KARMA ROWLAND UNIT #: [id number]#: [id number] [facility] AGE: 56 SEX: M ATTEND: Wilbert Ramires AUTHOR: Wilbert Ramires MD * ALL edits [...] distentionGenitourinary: no bladder distentionExtremities: R foot in dressingNeuro/CONTRACT RUNNER: alert, oriented X 3, 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 Considered [...] - 5.0 mEq/L) 4.5 Laboratory Tests 08/26 429 Hematology WBC (4.5 [...] (Auto) (14.0 - 32.0 %) 7.4 L [place] % (Auto) (4.8 - 9.0 %) 3.9 L Eos % (Auto) (0.3 - 3.7 %) 0.5 Baso % (Auto) (0.0 - 2.0 %) 0.1 Neut # (Auto) (2.0 - 7.6 x10 3/uL) 15.49 H Lymph # (Auto) (1.0 - 3.8 x10 3/uL) 1.31 [place] # (Auto) (0.1 - 0.8 x10 3/uL) [...] pH (5.0 - 7.0) 5.0 Ur Specific [place] (1.005 - 1.030) 1.012 Urine Protein (NEGATIVE) [...] - will likely need wound vac and skilled nursing IV antibiotic therapy - d/w at bedside [...] PSA normal - OOB at 0638 RPT #:[id number] OF REPORTPRProgress vnqk3865-13-78O70:12:00G.YUZB68111512-5557V VAvailable for patient cjrrCNAJSPXBEPTWGQ6841-95-56S19:38:23 [facility] 2022-08-25 21:29:00 [id number]+Yruc2lGBc+ BSe qaifEp20L6oIwDvqcg0PvZqgxboPWnXmy3320-92-03 T21:29:00 [facility] HospitalPodiatry Progress NoteREPORT#:[id number] REPORT STATUS: SignedDATE:08/25/22 TIME: 2128 PATIENT: KARMA ROWLAND UNIT #: [id number]#: [id number] [address] [birth year] AGE: 56 SEX: M ATTEND: Wilbert Ramires [facility] AUTHOR: Liam Pedersen DPM * ALL edits [...] pH (5.0 - 7.0) 5.0 Ur Specific [place] (1.005 - 1.030) 1.012 Urine Protein (NEGATIVE) [...] Mucus (NONE SEEN /LPF) TRACE 08/25 08/25 9160 0744 Chemistry Sodium (134 - 147 mEq/L) [...] (Auto) (14.0 - 32.0 %) 8.1 L [place] % (Auto) (4.8 - 9.0 %) 4.3 L Eos % (Auto) (0.3 - 3.7 %) 0.5 Baso % (Auto) (0.0 - 2.0 %) 0.1 Neut # (Auto) (2.0 - 7.6 x10 3/uL) 15.44 H Lymph # (Auto) (1.0 - 3.8 x10 3/uL) 1.45 [place] # (Auto) (0.1 - 0.8 x10 3/uL) [...] for BKA. spoke with him directly. at 5984 RPT #:[id number] OF REPORTPRProgress xgpj0628-23-64N41:29:00G.SFGS52001640-1805W VAvailable for patient gqrqDCNIYRJTOUTAIB9948-20-01U14:35:54 [facility] 2022-08-25 18:38:00 [id number]//Cj1R5BNBmTtjX1HSxMCEt91B [place]+ CPnXGVNHkzknCU1hT2+IQcYOr3JkFKFfQ8428-67-87 T18:38:00 [facility] ([facility])Endocrinology Progress NoteREPORT#:[id number] REPORT STATUS: SignedDATE:08/25/22 TIME: 1837 PATIENT: KARMA ROWLAND UNIT #: [id number]#: [id number] [address] AGE: 56 SEX: M ATTEND: Wilbert Ramires [facility] AUTHOR: Braxton Chapin MD * ALL edits [...] pH (5.0 - 7.0) 5.0 Ur Specific [place] (1.005 - 1.030) 1.012 Urine Protein (NEGATIVE) [...] (Auto) (14.0 - 32.0 %) 8.1 L [place] % (Auto) (4.8 - 9.0 %) 4.3 L Eos % (Auto) (0.3 - 3.7 %) 0.5 Baso % (Auto) (0.0 - 2.0 %) 0.1 Neut # (Auto) (2.0 - 7.6 x10 3/uL) 15.44 H Lymph # (Auto) (1.0 - 3.8 x10 3/uL) 1.45 [place] # (Auto) (0.1 - 0.8 x10 3/uL) [...] (Auto) (14.0 - 32.0 %) 4.8 L [place] % (Auto) (4.8 - 9.0 %) 2.9 L Eos % (Auto) (0.3 - 3.7 %) 0.0 L Baso % (Auto) (0.0 - 2.0 %) 0.2 Neut # (Auto) (2.0 - 7.6 x10 3/uL) 19.90 H Lymph # (Auto) (1.0 - 3.8 x10 3/uL) 1.10 [place] # (Auto) (0.1 - 0.8 x10 3/uL) [...] (Auto) (14.0 - 32.0 %) 3.8 L [place] % (Auto) (4.8 - 9.0 %) 3.7 L Eos % (Auto) (0.3 - 3.7 %) 0.0 L Baso % (Auto) (0.0 - 2.0 %) 0.3 Neut # (Auto) (2.0 - 7.6 x10 3/uL) 17.97 H Lymph # (Auto) (1.0 - 3.8 x10 3/uL) 0.76 L [place] # (Auto) (0.1 - 0.8 x10 3/uL) [...] pH (5.0 - 7.0) 5.0 Ur Specific [place] (1.005 - 1.030) 1.013 Urine Protein (NEGATIVE) [...] 1709 Blood Culture - ORD BLOOD 08/19 171 [...] 08/19 08/19 08/19 08/19 0805 0737 0737 7485 Chemistry Sodium (134 - 147 mEq/L) 130 [...] (Auto) (14.0 - 32.0 %) 4.3 L [place] % (Auto) (4.8 - 9.0 %) 3.1 L Eos % (Auto) (0.3 - 3.7 %) 0.0 L Baso % (Auto) (0.0 - 2.0 %) 0.3 Neut # (Auto) (2.0 - 7.6 x10 3/uL) 19.17 H Lymph # (Auto) (1.0 - 3.8 x10 3/uL) 0.91 L [place] # (Auto) (0.1 - 0.8 x10 3/uL) [...] 08/190 Gram Stain - RES ABSCESS Recent Impressions:ULTRASOUND [...] an underlying process or neoplasm. Impression By: Lyn6 - Dom Adams M.D.RADIOLOGY - XR FOOT [...] care and IV antibiotics. at 1840 RPT #:[id number] OF REPORTPRProgress skbh3715-93-56I40:38:00G.AEYL63400070-6920K VAvailable for patient laljAXRMBODSJEKESX8094-74-74A64:41:12 [facility] 2022-08-25 16:09:00 [id number]/Bs3S7IANrEMTK1n0ZDa 7fD 0Qozd0HcLuibZ+4J25SkyVeLZ5+2PHDyu5093-20-46 T16:09:00 [facility] ([facility])Infectious Dis. Progress NoteREPORT#:[id number] REPORT STATUS: SignedDATE:08/25/22 TIME: 1609 PATIENT: KARMA ROWLAND UNIT #: [id number]#: [id number] [facility] AGE: 56 SEX: M ATTEND: Wilbert Ramires [facility] AUTHOR: Merry Wolff MD * ALL edits [...] Pulse Ox FiO2 04/-08/25 97.9-98.6 91-107 14-23 117-162/56-74 80-106 98-100 Last Documented: Result Date Time Temp 98.6 04 0800 Pulse Ox 98 04/ 0400 B/P 138/64 / 0400 B/P Mean 88 / 0400 Pulse 91 / 0400 Resp 15 08/25 0400 O2 Delivery Room air 08/24 1900 O2 Flow Rate 2 08/21 0800 Vital Signs: Date Time Temp Pulse Resp B/P B/P Pulse O2 O2 Flow FiO2 Mean Ox Delivery Rate 08/25 0800 98.6 08/25 0400 97.9 91 15 138/64 88 98 /03 0200 91 14 117/57 81 99 04/03 0100 93 16 120/56 81 98 04/03 0000 97 16 125/58 84 98 04/02 2300 100 15 120/58 81 98 04/02 2300 98.5 94 15 125/58 80 99 04/02 2200 107 21 162/74 106 100 04/02 2100 101 17 148/70 101 99 04/ 2000 99 23 130/60 86 98 04/ 1900 98.4 102 15 162/74 103 98 Room air 08/24 1900 97 18 117/58 83 100 04/ 1800 98 18 134/56 85 100 04/ 1700 96 15 132/64 91 99 24 [...] soft, no distentionExtremities: edema, RLE pitting edema notedNeuro/CONTRACT RUNNER: alert, 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 Considered stroke alert: [...] (Auto) (14.0 - 32.0 %) 8.1 L [place] % (Auto) (4.8 - 9.0 %) 4.3 L Eos % (Auto) (0.3 - 3.7 %) 0.5 Baso % (Auto) (0.0 - 2.0 %) 0.1 Neut # (Auto) (2.0 - 7.6 x10 3/uL) 15.44 H Lymph # (Auto) (1.0 - 3.8 x10 3/uL) 1.45 [place] # (Auto) (0.1 - 0.8 x10 3/uL) [...] pH (5.0 - 7.0) 5.0 Ur Specific [place] (1.005 - 1.030) 1.012 Urine Protein (NEGATIVE) [...] (Auto) (14.0 - 32.0 %) 8.1 L [place] % (Auto) (4.8 - 9.0 %) 4.3 L Eos % (Auto) (0.3 - 3.7 %) 0.5 Baso % (Auto) (0.0 - 2.0 %) 0.1 Neut # (Auto) (2.0 - 7.6 x10 3/uL) 15.44 H Lymph # (Auto) (1.0 - 3.8 x10 3/uL) 1.45 [place] # (Auto) (0.1 - 0.8 x10 3/uL) [...] pH (5.0 - 7.0) 5.0 Ur Specific [place] (1.005 - 1.030) 1.012 Urine Protein (NEGATIVE) [...] 129 H Toxicology Random Vancomycin (mcg/mL) 9.6 0408/24 0749 0630 5300 9372 1930Chemistry Sodium (134 - 147 mEq/L) 133 [...] (Auto) (14.0 - 32.0 %) 7.7 L [place] % (Auto) (4.8 - 9.0 %) 4.7 L Eos % (Auto) (0.3 - 3.7 %) 0.6 Baso % (Auto) (0.0 - 2.0 %) 0.1 Neut # (Auto) (2.0 - 7.6 x10 3/uL) 13.99 H Lymph # (Auto) (1.0 - 3.8 x10 3/uL) 1.25 [place] # (Auto) (0.1 - 0.8 x10 3/uL) [...] BID 08/21 2100 AC 08/25 PO 09/20 205 0809 Bisacodyl 10 MG DAILY PRN PRN [...] 09/19 1629 1755 Insulin Human Lispro 0 HS 08/20 1630 AC 08/24 SUBQ 09/19 1629 0805 Glucagon 1 MG ASDIR PRN 08/20 1530 AC IM 09/19 1529 Microbiology:08/25 1044 URINE: Urine Culture - WKST04/03 1044 BLOOD: Blood Culture - RECD04 1044 BLOOD: Blood Culture - RECD08/22 1730 BLOOD: Blood Culture - RES COAG POS ZVGVRSHPYMUWAR69/31 1730 BLOOD: Blood Culture Gram Stain - RES08/22 1721 BLOOD: Blood Culture - RES COAG POS POYJEFBXSDTXTM47/31 1721 BLOOD: Blood Culture Gram Stain - [...] Jill Quintero on 08/26/22 at 1510 at 4679 RPT #:[id number] OF REPORTPRProgress yexc3310-80-01X03:09:00G.[id number] VAvailable for patient oxqkIHBNRDIAVONRKE3419-56-31R74:17:55 [facility] 2022-08-25 15:40:00 [id number]3mqLWx h6r 4EGU5XN1VsPdiRynn6Xn8dkAFDSZVm0Lo7504-64-99 T15:40:00 [facility] ([facility])Urology Progress NoteREPORT#:[id number] REPORT STATUS: SignedDATE:08/25/22 TIME: 1540 PATIENT: KARMA ROWLAND UNIT #: [id number]#: [id number] [address] [birth year] AGE: 56 SEX: M ATTEND: Wilbert Ramires [facility] AUTHOR: David Du MD * ALL edits or amendments must be made on the electronic/computer document * SubjectivePatient reports: no complaints Objective GeneralVS/I O:Last Documented: Result Date Time Temp 37.0 08/25 0800 Pulse Ox 98 08/25 0400 B/P 138/64 08/25 0400 B/P Mean 88 08/25 0400 Pulse 91 / 0400 Resp 15 08/25 0400 O2 Delivery [...] (Auto) (14.0 - 32.0 %) 8.1 L [place] % (Auto) (4.8 - 9.0 %) 4.3 L Eos % (Auto) (0.3 - 3.7 %) 0.5 Baso % (Auto) (0.0 - 2.0 %) 0.1 Neut # (Auto) (2.0 - 7.6 x10 3/uL) 15.44 H Lymph # (Auto) (1.0 - 3.8 x10 3/uL) 1.45 [place] # (Auto) (0.1 - 0.8 x10 3/uL) [...] pH (5.0 - 7.0) 5.0 Ur Specific [place] (1.005 - 1.030) 1.012 Urine Protein (NEGATIVE) [...] accessible vis the urethra at 1542 RPT #:[id number] OF REPORTPRProgress mewr9322-97-13T15:40:00G.OFSG89803215-6897G VAvailable for patient palkFZYEUCPVDOVBGG7069-21-52U07:43:18 [facility] 2022-08-25 11:03:00 [id number]Y6iW ey4 KQd3YQzLSam0iHP52xcpk75K4L4q1YkZu6765-70-37 T11:03:00 [facility]Hospital[facility] Progress NoteREPORT#:[id number] REPORT STATUS: SignedDATE:08/25/22 TIME: 1103 PATIENT: KARMA ROWLAND UNIT #: [id number]#: [id number] [address]GJD: 61 AGE: 56 SEX: M ATTEND: Wilbert Ramires [facility] AUTHOR: Meera Chavira DO * ALL edits [...] 0400 97.9 91 15 138/64 88 98 /03 0200 91 14 117/57 81 99 /03 0100 93 16 120/56 81 98 04/03 [...] 04/02 1501 98 21 126/58 83 99 04/ 1401 102 25 159/74 102 99 04/ 1300 100 12 157/72 103 100 04/ 1200 98.1 04/ 1200 98 18 148/72 98 100 24 hour I O ending at 0700: 04/03 0700 04 1900 Intake Total 1280 Output Total 700 [...] distentionGenitourinary: no bladder distentionExtremities: R foot in dressingNeuro/CONTRACT RUNNER: alert, oriented X 3, 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 Considered [...] (Auto) (14.0 - 32.0 %) 8.1 L [place] % (Auto) (4.8 - 9.0 %) 4.3 L Eos % (Auto) (0.3 - 3.7 %) 0.5 Baso % (Auto) (0.0 - 2.0 %) 0.1 Neut # (Auto) (2.0 - 7.6 x10 3/uL) 15.44 H Lymph # (Auto) (1.0 - 3.8 x10 3/uL) 1.45 [place] # (Auto) (0.1 - 0.8 x10 3/uL) [...] - will likely need wound vac and skilled nursing IV antibiotic therapy - d/w at bedside [...] stableDiscussed with at bedside at 1112 RPT #:[id number] OF REPORTPRProgress hdxw1634-80-12A32:03:00G.QJRA76875593-1307H VAvailable for patient cbizTMQAPBLKNWBTAI9560-68-64N35:12:37 [facility] 2022-08-25 10:01:00 [id number]tEDW j+N CAa8bcABm71/GExd31ochvTH4ANNpR61x8040-74-71 T10:01:00 [facility])Cardiology Progress NoteREPORT#:[id number] REPORT STATUS: SignedDATE:08/25/22 TIME: 1001 PATIENT: KARMA ROWLAND UNIT #: [id number]#: [id number] [address] [birth year] AGE: 56 SEX: M ATTEND: Wilbert Ramires AUTHOR: Rohit Benitez [employer] * ALL edits or amendments must be made on the electronic/computer document * Rohit Benitez 08/25/22 1001:SubjectiveChief complaint:foot infection Free Text Subj NotesFree Text Subj Notes:No new symptoms, feeling well. Receiving wound care at bedside. Telemetry: Sinus rhythm Objective GeneralVS/I O:24 hour I O ending at 0700: 08/25 0700 04/02 1900 Intake Total 1280 Output Total 700 850 Balance -700 430 Intake, Oral 1280 Number 3 Bowel Movements Output, Urine 700 850 Vital Signs: Date Time Temp Pulse Resp B/P B/P Pulse O2 O2 Flow FiO2 Mean Ox Delivery Rate 04/03 0400 97.9 91 15 138/64 88 [...] to auscultation, no distressLower extremity: LE assessment: edemaNeuro/CONTRACT RUNNER: alert, oriented X 3 Considered stroke alert: [...] (Auto) (14.0 - 32.0 %) 8.1 L [place] % (Auto) (4.8 - 9.0 %) 4.3 L Eos % (Auto) (0.3 - 3.7 %) 0.5 Baso % (Auto) (0.0 - 2.0 %) 0.1 Neut # (Auto) (2.0 - 7.6 x10 3/uL) 15.44 H Lymph # (Auto) (1.0 - 3.8 x10 3/uL) 1.45 [place] # (Auto) (0.1 - 0.8 x10 3/uL) [...] Will follow. at 1733 at 0829 RPT #:[id number] OF REPORTPRProgress gwim1512-20-95H88:01:00G.[id number] VAvailable for patient bkmoNJJJUSWIZPYXZQ0582-55-29Y92:33:58 [facility] 2022-08-24 17:55:00 [id number] [facility] UAfZfx7vdeJndZr67OIrsPndkgbhH2fH64943-22-31 T17:55:00 [facility])Podiatry Progress NoteREPORT#:[id number] REPORT STATUS: SignedDATE:08/24/22 TIME: 1755 PATIENT: KARMA ROWLAND UNIT #: [id number]#: [id number] [facility] AGE: 56 SEX: M ATTEND: Wilbert Ramires AUTHOR: Rosa Pratt DPM * ALL edits or amendments must be made on the electronic/computer document * SubjectiveChief complaint:seen at bedside,. family memebers next to him denies having any painfoot covered and protected and offloaded drainage noted serosang. increased warmth Objective GeneralVS:Last Documented: Result Date Time Temp 36.7 08/24 1200 Pulse Ox 99 08/24 0601 B/P 121/62 08/24 0601 B/P Mean 83 08/24 06 Pulse 100 08/24 0601 Resp 19 08/24 [...] O:24 hour I O ending at 0700: 08/24 [...] (Auto) (14.0 - 32.0 %) 7.7 L [place] % (Auto) (4.8 - 9.0 %) 4.7 L Eos % (Auto) (0.3 - 3.7 %) 0.6 Baso % (Auto) (0.0 - 2.0 %) 0.1 Neut # (Auto) (2.0 - 7.6 x10 3/uL) 13.99 H Lymph # (Auto) (1.0 - 3.8 x10 3/uL) 1.25 [place] # (Auto) (0.1 - 0.8 x10 3/uL) [...] x10 3/uL) 0.00Toxicology Random Vancomycin (mcg/mL) 9.6 08/24 08/23 08/23 [...] and sister and patient aware 08/24/22seen at [facility] with family at risk for bka. continue wound care iv abx pain control d/w dr wojciech bland nhan follow tomorrow at 8453 RPT #:[id number] OF REPORTPRProgress kupt4494-73-00Z37:55:00G.[id number] VAvailable for patient lqhoVQQBGFQTWJMOZJ0885-15-03M60:24:50 [facility] 2022-08-24 16:19:00 [id number] EFV hmO1XfxEjJEw3zwNaGR6cP3BwJ7B8K6SS8048-48-39 T16:19:00 [facility] ([facility])Cardiology Progress NoteREPORT#:[id number] REPORT STATUS: SignedDATE:08/24/22 TIME: 1619 PATIENT: KARMA ROWLAND UNIT #: [id number]#: [id number] [address] [birth year] AGE: 56 SEX: M ATTEND: Wilbert Ramires MDA AUTHOR: Rohit Benitez [employer]ACH[employer] * ALL edits or amendments must be made on the electronic/computer document * Rohit Benitez 08/24/22 1619:SubjectiveChief complaint:foot infection Free Text Subj NotesFree Text Subj Notes:No new symptoms, feeling well Telemetry: Sinus rhythm Objective GeneralVS/I O:24 hour I O ending at 0700: 08/24 0700 08/23 1900 Intake Total 480 1610.00 Output Total 750 1950 Balance -270 -340.00 Intake, IV 300.00 Intake, Oral 480 960 Intake, 350 Packed Cells Number 5 Bowel Movements Output, Urine 750 1950 Vital Signs: Date Time Temp Pulse Resp B/P B/P Pulse O2 O2 Flow FiO2 Mean Ox Delivery Rate 08/24 1200 98.1 04/ 0800 98.0 04/ 0601 100 19 121/62 83 99 [...] 21 137/64 92 100 04/ 2000 98.2 04/ 2000 87 20 121/60 85 99 04/ 1901 95 21 124/60 84 99 04/ 1801 97 23 117/58 83 100 04/01 1700 97 22 119/56 80 98 PATIENT [...] to auscultation, no distressLower extremity: LE assessment: edemaNeuro/CONTRACT RUNNER: alert, oriented X 3 Considered stroke alert: noWound/incision: Location:right footPsychiatry: normal affect, normal judgment/insight, normal mood ResultsFindings/Data:Laboratory Tests 08/24 08/24 08/24 08/24 08/23 1200 0749 0630 0309 8Chemistry Sodium (134 - 147 mEq/L) 133 [...] (Auto) (14.0 - 32.0 %) 7.7 L [place] % (Auto) (4.8 - 9.0 %) 4.7 L Eos % (Auto) (0.3 - 3.7 %) 0.6 Baso % (Auto) (0.0 - 2.0 %) 0.1 Neut # (Auto) (2.0 - 7.6 x10 3/uL) 13.99 H Lymph # (Auto) (1.0 - 3.8 x10 3/uL) 1.25 [place] # (Auto) (0.1 - 0.8 x10 3/uL) [...] nurse practitioner. Will follow. at 1824 at 4244 RPT #:[id number] OF REPORTPRProgress vhsq7629-16-21H04:19:00G.[id number] VAvailable for patient dfasHGOJYMHZYBNAPI7358-95-92H67:25:20 [facility] 2022-08-24 15:41:00 [id number]+8Z5ilO+BZDpy2BNeom QxD Jum5i96TO7uav3P9ZAqRGbh5tJ+PLJNvr1083-79-90 T15:41:00 [facility] ([facility])Pharmacy Prog.Note-VancomycinREPORT#:[id number] REPORT STATUS: SignedDATE:08/24/22 TIME: 1541 PATIENT: KARMA ROWLAND UNIT #: [id number]#: [id number] [address] [birth year] AGE: 56 SEX: M ATTEND: Wilbert Ramires [facility] AUTHOR: Tolu Tobias [place] [facility] * ALL edits or amendments must be made on the electronic/computer document * See AddendumVancomycin Vancomycin Medication TherapyGoal: AUC 400-600 mg*hr/LIndication for treatment:Empiric (now confirmed foot infection and bacteremia)Weight: Actual weight (kg): 72.575VS and I/O:Vital Signs Date Temp Pulse Resp B/P B/P Mean Pulse Ox FiO2 08/21-08/24 36.7-37.4 86-107 11-24 89-159/53-73 65-104 90-100 72 hours ending at 0700 08/24 0708/23 19008/23 19008/22 0700 1900Intake 480 1610.00 15 650.00 340.00 950.00TotalOutput 750 9387 184 7864 500 650TotalBalance -270 -340.00 -585 -750.00 -160.00 300.00 Intake, IV 300.00 15 50.00 100.00 300.00Intake, 480 960 600 240 650OralIntake, 350PackedCellsNumber 5BowelMovementsOutput, 750 3420 880 1375 500 650UrinePatient 72.575 kgWeight 72 Hour I O Total 08/24 0700 Intake Total 2090.00 665.00 1290.00 Output Total 2700 2000 1150 Balance -610.00 -1335.00 140.00 Labs:Laboratory Tests: 08/23 08/22 08/21 0320 0830 2014 Toxicology Vancomycin Trough (10.0 - 20.0 mcg/mL) 27.2 *H Random Vancomycin (mcg/mL) 15.3 19.7 Laboratory Test : 08/24 08/23 08/23 08/22 0630 0350 0320 0440 Chemistry BUN (7 - 18 mg/dL) 38 H 45 H 37 H Creatinine (0.6 - 1.3 mg/dL) 1.3 1.5 H 1.3 Hematology WBC (4.5 - 11.0 x10 3/uL) 16.3 H 17.6 H 19.5 H Microbiology:08/22 1730 BLOOD: Blood Culture - RES COAG POS XYMILXQPCBPVPM18/31 1730 BLOOD: Blood Culture Gram Stain - [...] Cx x2: 2/4 Coag Pos Staph (Updated 08/24) 08/21 Blood Cx x2: 2/4 MRSA (vanc [...] for this consult at 1542 Addendum 1: 08/24/221757 by Lenny Haynes [facility] 08/24 Update: Level @1700 = 9.6 mcg/ml, Ordered vanc 1gm IV x1 dose. at 1758 RPT #:[id number] OF REPORTPRProgress ccpv2875-34-89S73:41:00G.SYVK82174501-8118M VAvailable for patient fkgsRUVOJYJACYMLWU7412-68-47X12:42:22 [facility] 07:33:00 [id number]/QVwxFB92 E/7 0v6S4QpDJMjXYsDukq0DbJiJYLq2JxmtV1479-47-45 T07:33:00 [facility] Progress NoteREPORT#:[id number] REPORT STATUS: SignedDATE:08/24/22 TIME: 732 PATIENT: KARMA ROWLAND UNIT #: [id number]#: [id number] [address] AGE: 56 SEX: M ATTEND: Wilbert Ramires [facility] AUTHOR: Wilbert Ramires MD * ALL edits [...] 08/24 0601 100 19 121/62 83 99 08/24 0500 93 15 123/73 93 100 04/02 [...] 93 21 137/64 92 100 04/1999 98.2 04/ 2000 87 20 121/60 85 99 04/01 [...] I O ending at 0700: 08/24 0700 04 1900 Intake Total 480 1610.00 [...] There were blisters with some blisters wereopen. Neuro/CONTRACT RUNNER: alert, oriented X 3, 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 Considered [...] (Auto) (14.0 - 32.0 %) 7.7 L [place] % (Auto) (4.8 - 9.0 %) 4.7 L Eos % (Auto) (0.3 - 3.7 %) 0.6 Baso % (Auto) (0.0 - 2.0 %) 0.1 Neut # (Auto) (2.0 - 7.6 x10 3/uL) 13.99 H Lymph # (Auto) (1.0 - 3.8 x10 3/uL) 1.25 [place] # (Auto) (0.1 - 0.8 x10 3/uL) [...] - will likely need wound vac and skilled nursing IV antibiotic therapy - d/w at bedside [...] - d.w at bedside at 0734 RPT #:[id number] OF REPORTPRProgress loxm4263-80-49L39:33:00G.PPSG89517421-6039P VAvailable for patient rjbnBWQUFPMENSNXAW8605-45-85D25:35:06 [facility] 2022-08-23 15:24:00 [id number]/jGYSgyCNE2XdX3W5QqvAxM4tpL F8A ogZFWUMr2bLO4cUU220OYiZccm/TisAwY3932-55-18 T15:24:00 [facility])Pharmacy Prog.Note-VancomycinREPORT#:[id number] REPORT STATUS: SignedDATE:08/23/22 TIME: 1524 PATIENT: KARMA ROWLAND UNIT #: [id number]#: [id number] [address]: [birth year] AGE: 56 SEX: M ATTEND: Wilbert Ramires [facility] AUTHOR: Tolu Tobias [facility] * ALL edits or amendments must be made on the electronic/computer document * Vancomycin Vancomycin Medication TherapyGoal: AUC 400-600 mg*hr/LIndication for treatment:Empiric (now confirmed foot infection and bacteremia)Weight: Actual weight (kg): 72.575VS and I/O:Vital Signs Date Temp Pulse Resp B/P B/P Mean Pulse Ox FiO2 08/20-08/23 36.7-38.1 90-108 11-25 89-159/50-76 65-104 90-99 72 hours ending at 0700 08/23 19008/21 0700 1900Intake 15 650.00 340.00 950.00 1290.00 1122.80TotalOutput 600 1400 500 650 1650TotalBalance -585 -750.00 -160.00 300.00 1290.00 -527.20 Intake, IV 15 50.00 100.00 300.00 1190.00 1122.80Intake, 600 240 650 100OralOutput, 600 1400 500 650 1650UrinePatient 72.575 kg 73 kgWeightWeight Bed scaleMeasurementMethod 72 Hour I O Total 08/23 0708/22 0708/21 07 Intake Total 665.00 1290.00 2412.80 Output Total 1999 1150 1650 Balance -1335.00 140.00 762.80 Labs:Laboratory Tests: 0408/22 0320 0830 2014 1315 2240 Toxicology Vancomycin [...] 17.6 H 19.5 H 19.0 H Microbiology:08/22 173 BLOOD: Blood Culture - RES08/22 1730 BLOOD: Blood Culture Gram Stain - RES08/22 1721 BLOOD: Blood Culture - RES08/22 1721 BLOOD: Blood Culture Gram Stain - RES08/21 0428 BLOOD: Blood Culture - RES STAPH AUREUS,METHICILLIN RESIS08/21 0428 BLOOD: Blood Culture Gram Stain - RES08/21 0428 BLOOD: Blood Culture - RES STAPH AUREUS,METHICILLIN RESIS/ 0428 BLOOD: Blood Culture Gram Stain - [...] Staph (Updated 08/23) 08/21 Blood Cx x2: 2 MRSA (vanc VERONICA = 1) 08/19 Abscess [...] you for this consult at 1525 RPT #:[id number] OF REPORTPRProgress iulj6195-00-70E74:24:00G.HPOD02588640-3357D VAvailable for patient dljkDICJKIOSKEVVDC5711-32-61R52:25:42 [facility] 2022-08-23 09:47:00 [id number]/a82vg1k/wueAURcfFemhB 3Cn vLDqKuwHDoFm4arS8Kspg4wmy3PLm1Kek8434-06-73 T09:47:00 [facility] ([facility])Cardiology Progress NoteREPORT#:[id number] REPORT STATUS: SignedDATE:08/23/22 TIME: 946 PATIENT: KARMA ROWLAND UNIT #: [id number]#: [id number] [address] [birth year] AGE: 56 SEX: M ATTEND: Wilbert Ramires AUTHOR: Rohit Benitez [employer] * ALL edits or amendments must be [...] to auscultation, no distressLower extremity: LE assessment: edemaNeuro/CONTRACT RUNNER: alert, oriented X 3 Considered stroke alert: [...] H Add Manual Diff YES Laboratory Tests 08/24 319 Toxicology Random Vancomycin (mcg/mL) 15.3 Laboratory Tests 08/24 319 Chemistry Magnesium (1.80 - 2.40 mg/dL) 1.71 [...] RN and Dr. Parham. Napoleon Parham 08/24/22 3686:Diagnosis, Assessment PlanAdditional comments:Patient was seen and examined at bedside, agree with above assessment and plan as documented by nurse practitioner. Will follow. at 1700 at 6697 RPT #:[id number] OF REPORTPRProgress ettc6156-15-86P27:47:00G.EEYL95068573-2404Y VAvailable for patient mfcmWBQGATUSFGMRQF1077-41-50E58:00:55 [facility] 2022-08-23 08:08:00 [id number]+9swA ntd DzEUNEGEGVKK5UXCvbYWuhYw5xATU8cZh3739-62-17 T08:08:00 [facility]Hospital[facility] Progress NoteREPORT#:[id number] REPORT STATUS: SignedDATE:08/23/22 TIME: 0808 PATIENT: KARMA ROWLAND UNIT #: [id number]#: [id number] [address] [birth year] AGE: 56 SEX: M ATTEND: [...] 83 97 08/23 0443 96 14 96 08/23 0400 99.4 Room air 08/23 0400 97 16 118/56 81 96 08/23 0300 96 16 132/60 86 97 08/23 0200 98 19 124/56 81 97 08/23 0100 97 15 116/58 81 96 08/23 0009 98 13 98 04 0000 99.0 Room air 08/23 0000 97 [...] There were blisters with some blisters wereopen. Neuro/CONTRACT RUNNER: alert, oriented X 3, 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 Considered [...] - will likely need wound vac and medical terminologist IV antibiotic therapy - d/w at bedside [...] floor transfer - d/w at 0809 RPT #:[id number] OF REPORTPRProgress tixa8033-12-57P24:08:00G.ASRE51196665-2064X VAvailable for patient crcoCGTVFWXSRGOVHJ5390-83-43V37:10:06 [facility] 2022-08-22 21:25:00 [id number]/NCu+UQz55/kqqBm Xaf kkL6c1WnQ4hEn8m0QdYqSz8x68mXbRpmz7904-28-84 T21:25:00 [facility] ([facility])Podiatry Progress NoteREPORT#:[id number] REPORT STATUS: SignedDATE:08/22/22 TIME: 2124 PATIENT: KARMA ROWLAND UNIT #: [id number]#: [id number] [address] [birth year] AGE: 56 SEX: M ATTEND: Wilbert Ramires MDADM AUTHOR: Liam PedersenM * ALL edits [...] (Auto) (14.0 - 32.0 %) 9.0 L [place] % (Auto) (4.8 - 9.0 %) 4.8 Eos % (Auto) (0.3 - 3.7 %) 0.4 Baso % (Auto) (0.0 - 2.0 %) 0.1 Neut # (Auto) (2.0 - 7.6 x10 3/uL) 15.98 H Lymph # (Auto) (1.0 - 3.8 x10 3/uL) 1.76 [place] # (Auto) (0.1 - 0.8 x10 3/uL) [...] sister and patient aware at 2127 RPT #:[id number] OF REPORTPRProgress wuat6382-09-32H61:25:00G.NUKX02793462-2555L VAvailable for patient okxtGLTZGNUXIMDFPD2786-71-43Z83:28:14 [facility] 2022-08-22 15:34:00 [id number]/fsEGhT+ahQ3awwDgSrWt8kcI Y+u rGFU5Dtn3HHd0g3qu364ZtnbOnPuaotXE5530-31-67 T15:34:00 [facility] ([facility])Infectious Dis. Progress NoteREPORT#:[id number] REPORT STATUS: SignedDATE:08/22/22 TIME: 1534 PATIENT: KARMA ROWLAND UNIT #: [id number]#: [id number] [address] [birth year] AGE: 56 SEX: M ATTEND: Wilbert Ramires [facility] AUTHOR: Anthony Curtis MD * ALL edits or amendments must be made on the electronic/computer document * SubjectiveChief complaint:Follow-up on MRSA bacteremia, right lower extremity necrotizing soft tissue infection.HPI:Patient is awake and alert. Denies acute or new complaints currently. No majorovernight events. Objective GeneralVS/I O:Vital Signs Date Temp Pulse Resp B/P B/P Mean Pulse Ox FiO2 08/21-08/22 98.7-99.4 95-107 11-24 89-140/55-70 69-97 90-96 Last Documented: Result Date [...] soft, no distentionExtremities: edema, RLE pitting edema notedNeuro/CONTRACT RUNNER: alert, 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 Considered stroke alert: [...] vancomycin, started 3Day 5 at 1540 RPT #:[id number] OF REPORTPRProgress irne3187-77-66Q38:34:00G.ULWG53522240-8532L VAvailable for patient zshiEQYEWNAYHBTYWP5587-05-11Q74:41:20 [facility] 2022-08-22 14:16:00 [id number]+e6HP3Ldm Yvt uAKW4wiFX8katafaaOvluOw1fbGZrWm9+2022-08-22 T14:16:00 [facility] ([facility])Pharmacy Prog.Note-VancomycinREPORT#:[id number] REPORT STATUS: SignedDATE:08/22/22 TIME: 1416 PATIENT: KARMA ROWLAND UNIT #: [id number]#: [id number] [address] [birth year] AGE: 56 SEX: M ATTEND: Wilbert Ramires [facility] AUTHOR: Tolu Tobias [facility] * ALL edits or amendments [...] BLOOD: Blood Culture - RES COAG POS YETECUMFJOFPUX14/30 0428 BLOOD: Blood Culture Gram Stain - RES08/218 BLOOD: Blood Culture - RES COAG POS XCYYQRFGNOQMJZ67/ 0428 BLOOD: Blood Culture Gram Stain - RES08/19 1709 BLOOD: Blood Culture - ORD08/19 171 BLOOD: Blood Culture - ORD08/19 1622 URINE: [...] you for this consult at 1417 RPT #:[id number] OF REPORTPRProgress bvlm2124-39-30Z91:16:00G.QGQE69112206-3505U VAvailable for patient ugvpROVEIAVNVUAZJA6281-50-16F63:17:45 [facility] 2022-08-22 10:48:00 [id number]tVk1 Zqq 9Ip+YgkD0onFwFby1z3+isJYuUoCr0iMe5672-69-42 T10:48:00 [facility] ([facility])Cardiology Progress NoteREPORT#:[id number] REPORT STATUS: SignedDATE:08/22/22 TIME: 1048 PATIENT: KARMA ROWLAND UNIT #: [id number]#: [id number] [address] [birth year] AGE: 56 SEX: M ATTEND: Wilbert Ramires [facility] AUTHOR: Rohit Benitez [employer] * ALL edits or amendments must be [...] to auscultation, no distressLower extremity: LE assessment: edemaNeuro/CONTRACT RUNNER: alert, oriented X 3 Considered stroke alert: noWound/incision: Location:right footPsychiatry: normal affect, normal judgment/insight, normal mood ResultsFindings/Data:Laboratory Tests 08/22 08/22 08/21 08/21 08/21 0747 0442014 1622 1108Chemistry Sodium (134 - 147 mEq/L) [...] (Auto) (14.0 - 32.0 %) 9.0 L [place] % (Auto) (4.8 - 9.0 %) 4.8 Eos % (Auto) (0.3 - 3.7 %) 0.4 Baso % (Auto) (0.0 - 2.0 %) 0.1 Neut # (Auto) (2.0 - 7.6 x10 3/uL) 15.98 H Lymph # (Auto) (1.0 - 3.8 x10 3/uL) 1.76 [place] # (Auto) (0.1 - 0.8 x10 3/uL) [...] Unremarkable bladder. Impression By: TipERR2 - Cezar Wakefield M.D.[facility]NET[facility]ON[facility] IMAGING - MRI LOW EXT W/O CONT RT 08/22 2115 Report Impression - Status: SIGNED Entered: 08/21/2022 1358 Impression:1. Large areas of deep ulceration of [...] nurse practitioner. Will follow. at 1623 at 0112 RPT #:[id number] OF REPORTPRProgress spuy0824-93-12G57:48:00G.VSBE09540627-3862U VAvailable for patient ebxfNPVKYGTGRVUMIN2192-92-64A93:24:06 [facility] 2022-08-22 09:43:00 [id number]qzgo 1Zi wnayNG5fApv1MCJMIsLjOUpvOL60rpRmq5756-40-26 T09:43:00 [facility] Progress NoteREPORT#:[id number] REPORT STATUS: SignedDATE:08/22/22 TIME: 09 PATIENT: KARMA ROWLAND UNIT #: [id number]#: [id number] [facility] AGE: 56 SEX: M ATTEND: Wilbert Ramires AUTHOR: Wilbert Ramires MD * ALL edits [...] There were blisters with some blisters wereopen. Neuro/CONTRACT RUNNER: alert, oriented X 3, 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 Considered [...] - 5.0 g/dL) 1.70 L Laboratory Tests 08/220 Hematology WBC (4.5 - 11.0 x10 3/uL) [...] (Auto) (14.0 - 32.0 %) 9.0 L [place] % (Auto) (4.8 - 9.0 %) 4.8 Eos % (Auto) (0.3 - 3.7 %) 0.4 Baso % (Auto) (0.0 - 2.0 %) 0.1 Neut # (Auto) (2.0 - 7.6 x10 3/uL) 15.98 H Lymph # (Auto) (1.0 - 3.8 x10 3/uL) 1.76 [place] # (Auto) (0.1 - 0.8 x10 3/uL) [...] - will likely need wound vac and medical terminologist IV antibiotic therapy - d/w at bedside [...] - awaiting floor transfer at 0610 RPT #:[id number] OF REPORTPRProgress tcsm0610-72-40M56:43:00G.QUHY69652176-3382Y VAvailable for patient jnpcTYJRXJLEMOGASO6810-93-84B20:10:58 [facility] 2022-08-21 17:45:00 [id number]/cz/klBHmczUvLfy9hX qfM iRP+cz4mlkizJQm/j280SghHsqLHvY2op7077-59-12 T17:45:00 [facility])Podiatry Progress NoteREPORT#:[id number] REPORT STATUS: SignedDATE:08/21/22 TIME: 5 PATIENT: KARMA ROWLAND UNIT #: [id number]#: [id number] [address] AGE: 56 SEX: M ATTEND: Wilbert Ramires MDADM AUTHOR: Liam PedersenM * ALL edits [...] Sodium Chloride (SODIUM CHLORIDE 0.9%) 1,000 ML .Q57H42E IV (DC) Dextrose/Water (DEXTROSE 10% IN WATER) [...] O:24 hour I O ending at 0700: 03/30 0700 03/ 1900 Intake Total 1290.00 1122.80 Output Total [...] lavage by physical therapy at 1747 RPT #:[id number] OF REPORTPRProgress cwxu2859-02-11Z51:45:00G.WAUM28042218-3944N VAvailable for patient ltogYHEUAKRNQFBGSH4258-97-48H33:47:34 [facility] 2022-08-21 16:49:00 [id number]/O727Wn0diEjxPWg z2K wjwlsVRKq5+xBlyW4sF6UXXbKAwaTi3EV6277-47-39 T16:49:00 [facility])Pharmacy Prog.Note-VancomycinREPORT#:[id number] REPORT STATUS: SignedDATE:08/21/22 TIME: 1649 PATIENT: KARMA ROWLAND UNIT #: [id number]#: [id number] [address] AGE: 56 SEX: M ATTEND: Wilbert Ramires [facility] AUTHOR: Tolu Tobias [facility] * ALL edits or amendments must be made on the electronic/computer document * See AddendumVancomycin Vancomycin Medication TherapyGoal: AUC 400-600 mg*hr/LIndication for treatment:Empiric (now confirmed foot infection and bacteremia)Weight: Actual weight (kg): 72.575VS and I/O:Vital Signs Date Temp Pulse Resp B/P B/P Mean Pulse Ox FiO2 08/18-08/21 36.5-38.8 66-109 10-30 70-161/44-79 54-113 90-100 72 hours ending at 0700 08/21 0708/20 1900 08/19 08/18 07 1900Intake 1290.00 1122.80 1412.10 2437.40 3418.00TotalOutput 1650 1600TotalBalance 1290.00 -527.20 1412.10 2437.40 1818.00 Intake, IV 1190.00 1122.80 1412.10 1837.40 2818.00Intake, 100 600 600OralOutput, 1650 1600UrinePatient 73 kgWeightWeight Bed scaleMeasurementMethod 72 Hour I O Total 08/21 0700 08/20 0700 08/19 0700 Intake Total 2412.80 3849.50 3418.00 Output Total 1650 1600 Balance 762.80 3849.50 1818.00 Labs:Laboratory Tests: 08/21 08/20 1315 2240 Toxicology Vancomycin [...] body weight)Microbiology: 08/21 Blood Cx x2: Pending 08/19 Abscess [...] 1650 Addendum 1: 08/21/222117 by Mario Yancey [facility] AUC resulted 705.85 mcg*hr/mL supratherapeutic. Dose has been held and cancelled. No new dose ordered. at 2118 RPT #:[id number] OF REPORTPRProgress udgy8854-04-12O21:49:00G.QMRR64124280-3656W VAvailable for patient saeqMMGMFFIDPDPIQA9487-62-32U46:50:37 [facility] 2022-08-21 14:21:00 I75456751264oyE2qC+dZffzgQXjHJK9Szn0avms IMX SMxF4PWg384dko0bzzduQnSlpVpE+kEpx3361-66-80 T14:21:00 [facility] ([facility])Infectious Dis. Progress NoteREPORT#:[id number] REPORT STATUS: SignedDATE:08/21/22 TIME: 1421 PATIENT: KARMA ROWLAND UNIT #: [id number]#: [id number] [address] [birth year] AGE: 56 SEX: M ATTEND: Wilbert Ramires [facility] AUTHOR: Anthony Curtis MD * ALL edits [...] /30 1000 101 15 101/57 76 99 08/21 0916 100 15 111/62 76 98 08/21 0915 101 15 97 08/21 0900 101 15 131/63 89 97 08/21 0845 105 19 140/73 100 96 08/21 0830 107 17 142/68 98 95 / 0815 100 14 125/64 84 98 08/21 0800 100.4 08/21 0800 Nasal 2 cannula 08/21 0800 102 [...] 03/29 2200 106 24 137/71 96 95 08/20 2145 108 23 131/67 91 92 08/200 107 21 134/66 94 94 08/20 2114 104 21 140/67 97 95 08/20 2100 103 18 127/65 89 96 08/20 2044 [...] soft, no distentionExtremities: edema, RLE pitting edema notedNeuro/CONTRACT RUNNER: alert, 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 Considered stroke alert: [...] vancomycin, started 3Day 4 at 1425 RPT #:[id number] OF REPORTPRProgress zvjt5423-41-59O53:21:00G.GBXL40111272-1015B VAvailable for patient xupsYIPQMOMKDKTUQT0112-59-77R11:26:08 [facility] 2022-08-21 09:33:00 [id number]+11zgmguH XWx i4vuMKlDFdIWRqqy/TzogQ1R5gOsx0nX01429-93-79 T09:33:00 [facility] ([facility] Progress NoteREPORT#:[id number] REPORT STATUS: SignedDATE:08/21/22 TIME: 932 PATIENT: KARMA ROWLAND UNIT #: [id number]#: [id number] [address] [birth year] AGE: 56 SEX: M ATTEND: Wilbert Ramires [facility] AUTHOR: Rohit Benitez MACHINIST [employer] * ALL edits or amendments must be [...] Rate 08/21 0632 101 13 96 08/21 06 101 14 127/67 89 96 08/21 0615 99 13 130/76 98 96 08/21 0600 99 14 129/75 97 95 03/30 [...] 2045 103 18 131/63 91 93 03/29 2029 101 17 121/58 83 94 08/20 2014 101 19 126/59 85 94 03/29 2000 98.7 08/21 1999 98 16 108/60 77 94 / 1945 97 16 110/57 75 95 / 1930 96 15 95/51 65 95 / 1915 96 17 96/52 70 95 / 1900 97 15 103/55 71 97 / 1815 101 20 100/58 79 95 / [...] / 1530 92 14 114/57 80 94 08/20 1515 94 15 114/62 84 95 / 1500 93 15 108/57 78 95 / 1445 93 14 124/59 84 94 08/20 [...] 08/20 1215 100 21 152/78 108 95 / 1200 98.0 08/20 1200 94 19 145/74 102 96 / 1145 94 21 138/74 101 96 / 1130 93 19 153/77 108 96 / 1115 93 19 159/77 110 96 / 1100 88 19 149/79 106 96 / 1045 86 17 130/71 95 97 / 1030 86 20 143/73 101 98 03/ 1015 91 23 161/79 113 97 03/ 1000 86 18 139/73 100 97 / 0945 85 21 152/73 105 97 PATIENT [...] Sodium Chloride (SODIUM CHLORIDE 0.9%) 1,000 ML .U93M64J IV (DC) Dextrose/Water (DEXTROSE 10% IN WATER) [...] to auscultation, no distressLower extremity: LE assessment: edemaNeuro/CONTRACT RUNNER: alert, oriented X 3 Considered stroke alert: [...] documented by nurse practitioner. Will follow. at 1826 at 2257 RPT #:[id number] OF REPORTPRProgress mozu7485-34-84R27:33:00G.KTTY16427215-8009Z VAvailable for patient yvmtFANIXKFLMIRFGQ9877-51-25G71:27:06 [facility] 2022-08-21 08:31:00 [id number]++Ip++8 tel yyleV9aOHTihXC4hxkV26Z61Lml52YVlH9818-44-03 T08:31:00 [facility] Progress NoteREPORT#:[id number] REPORT STATUS: SignedDATE:08/21/22 TIME: 830 PATIENT: KARMA ROWLAND UNIT #: [id number]#: [id number] [address] AGE: 56 SEX: M ATTEND: [...] 14 106/62 78 97 08/21 0400 98.5 03/30 0400 92 14 93/57 [...] 03/29 2030 101 17 121/58 83 94 /29 2014 101 19 126/59 85 94 03/29 1999 98.7 03/29 1999 98 16 108/60 77 94 03/29 1945 97 16 110/57 75 95 03/29 1930 96 15 95/51 65 95 03/29 1915 96 17 96/52 70 95 03/29 1900 97 15 103/55 71 97 03/29 1815 101 20 100/58 79 95 03/29 1800 101 22 122/62 87 94 03/29 1745 100 22 116/59 84 95 08/20 [...] Sodium Chloride (SODIUM CHLORIDE 0.9%) 1,000 ML .O40E20I IV (DC) Dextrose/Water (DEXTROSE 10% IN WATER) [...] There were blisters with some blisters wereopen. Neuro/CONTRACT RUNNER: alert, oriented X 3, 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 Considered stroke alert: noSkin: no rashPsychiatry: normal affect, normal judgment/insight, normal mood ResultsFindings/Data:Laboratory Tests 08/21 08/21 08/20 08/20 08/20 0801 0428 2027 1636 1107Chemistry Sodium (134 - 147 mEq/L) [...] - will likely need wound vac and skilled nursing IV antibiotic therapy - d/w at bedside - PT/OT 08/21/2022 - continue IV antibitoics - wound care with pulse lavage. will likely need wound vac at some point - off insulin drip - tolerating diet. d/c IV fluids - pain controlled - awaiting MRI of his foot and pelvis - fall precautions - transfer to floor at 0833 RPT #:[id number] OF REPORTPRProgress fayy9132-51-63H42:31:00G.XSBF40136064-6777O VAvailable for patient udkxAHOSAAMOCUMHKD2159-58-77Z98:35:02 [facility] 2022-08-20 21:55:00 [id number] vjU +[id number]430-25-98 T21:55:00 [facility] ([facility])Cardiology Progress NoteREPORT#:[id number] REPORT STATUS: SignedDATE:08/20/22 TIME: 2154 PATIENT: KARMA ROWLAND UNIT #: [id number]#: [id number] [address] AGE: 56 SEX: M ATTEND: [...] 08/20 1130 93 19 153/77 108 96 03/29 1115 93 19 159/77 110 96 03/29 1100 88 19 149/79 106 96 03/29 1045 86 17 130/71 95 97 03/29 1030 86 20 143/73 101 98 03/29 1015 91 23 161/79 113 97 03/29 1000 86 18 139/73 100 97 03/29 0945 85 21 152/73 105 97 03/29 0930 87 23 126/69 93 96 03/29 [...] 03/28 2235 77 11 101/58 73 99 08/19 2229 70 11 87/52 65 98 08/19 2224 69 12 89/53 66 98 08/20 2219 71 13 88/54 67 97 08/19 2214 70 12 93/58 71 96 08/19 2209 69 11 89/55 67 97 08/19 2204 70 12 94/58 71 98 08/19 2199 72 13 105/61 78 98 PATIENT WEIGHT: [...] Sodium Chloride (SODIUM CHLORIDE 0.9%) 1,000 ML .[id number] IV Dextrose/Water (DEXTROSE 10% IN WATER) 250 [...] to auscultation, no distressLower extremity: LE assessment: edemaNeuro/CONTRACT RUNNER: alert, oriented X 3 Considered stroke alert: [...] (Auto) (14.0 - 32.0 %) 4.8 L [place] % (Auto) (4.8 - 9.0 %) 2.9 L Eos % (Auto) (0.3 - 3.7 %) 0.0 L Baso % (Auto) (0.0 - 2.0 %) 0.2 Neut # (Auto) (2.0 - 7.6 x10 3/uL) 19.90 H Lymph # (Auto) (1.0 - 3.8 x10 3/uL) 1.10 [place] # (Auto) (0.1 - 0.8 x10 3/uL) [...] controlled, continue supportive care, will follow. at [address]9 [facility] #:[id number] OF REPORTPRProgress [id number]:55:00G.[id number] VAvailable for patient [id number]:57:36 [facility] 2022-08-20 20:11:00 [id number] adB [id number] T20:11:00 [facility] ([facility])Podiatry Progress NoteREPORT#:[id number] REPORT STATUS: SignedDATE:08/20/22 TIME: 2010 PATIENT: KARMA ROWLAND UNIT #: [id number]#: [id number] [facility] AGE: 56 SEX: M ATTEND: Wilbert Ramires [facility] AUTHOR: Liam Pedersen DPM * ALL edits or amendments must be made on the electronic/computer document * SubjectiveChief complaint:my foot is red and swollenNursing reports: no constipation, no dizziness, no fatigue, no headache, no itchingComments:per nursing.... blood cultures and abscess cultures show MRSApt in ICU Objective GeneralVS:Last Documented: Result Date Time Pulse Ox 95 08/20 181 B/P 100/58 08/20 1815 B/P Mean 79 08/20 1815 Pulse 101 08/20 1815 Resp 20 08/20 1815 Temp 36.7 08/20 1600 O2 Delivery Nasal [...] Sodium Chloride (SODIUM CHLORIDE 0.9%) 1,000 ML .[id number] IV Dextrose/Water (DEXTROSE 10% IN WATER) 250 [...] (Auto) (14.0 - 32.0 %) 4.8 L [place] % (Auto) (4.8 - 9.0 %) 2.9 L Eos % (Auto) (0.3 - 3.7 %) 0.0 L Baso % (Auto) (0.0 - 2.0 %) 0.2 Neut # (Auto) (2.0 - 7.6 x10 3/uL) 19.90 H Lymph # (Auto) (1.0 - 3.8 x10 3/uL) 1.10 [place] # (Auto) (0.1 - 0.8 x10 3/uL) [...] 191 H 08/19 08/19 08/19 08/19 2310 2223 2131 2014 Chemistry Sodium (134 - 147 [...] (37.5 - 50.7 %) 21.8 L Microbiology:08/20 1457 BLOOD: Blood Culture - ORD08/20 145 BLOOD: Blood Culture - ORD08/19 1709 BLOOD: Blood Culture - ORD08/19 1709 BLOOD: Blood Culture - ORD08/19 1622 URINE: Urine Culture - RES08/19 1210 ABSCESS: Wound Culture - RES COAG POS ZYGFGBAGOGHBHN70/28 1210 ABSCESS: Anaerobic Culture - RES08/19 1210 ABSCESS: Gram Stain - RES08/18 0915 FOOT: Wound Culture - ORD08/18 020 FOOT: Wound Culture - RES STAPH AUREUS,METHICILLIN RESIS08/18 0207 THROAT: Group A Streptococcus Screen (VERONICA) - COMP08/18 0207 THROAT: Streptococcus Culture - COMP08/18 0203 BLOOD: Blood Culture - COMP STAPH AUREUS,METHICILLIN RESIS08/18 020 BLOOD: Blood Culture Gram Stain - COMP08/18 [...] leg. Impression By: Jamel Dorantes M.D.ULTRASOUND - [facility] UNI/LTD 08/19 4684 Report Impression - Status: SIGNED Entered: 08/19/2022 105 IMPRESSION: No sonographic evidence for flow-limiting stenosis in the right lower extremity arterial system. Impression By: Randal Ross M.D. Diagnosis, Assessment PlanFree Text A [...] lavage by physical therapy at 2017 RPT #:[id number] OF REPORTPRProgress fbkq9955-71-43B09:11:00G.VMAD25636077-0587M VAvailable for patient uxkaWAOGBTJHYFUJPB8406-32-89K30:17:45 [facility] 2022-08-20 19:36:00 [id number]VUI4 eXu ElkGITj5IDFtZ4WTd3a+GsQu94H8zXxSy2026-62-52 T19:36:00 [facility] ([facility])Urology Progress NoteREPORT#:[id number] REPORT STATUS: SignedDATE:08/20/22 TIME: 1935 PATIENT: KARMA ROWLAND UNIT #: [id number]#: [id number] [address] [birth year] AGE: 56 SEX: M ATTEND: [...] (Auto) (14.0 - 32.0 %) 4.8 L [place] % (Auto) (4.8 - 9.0 %) 2.9 L Eos % (Auto) (0.3 - 3.7 %) 0.0 L Baso % (Auto) (0.0 - 2.0 %) 0.2 Neut # (Auto) (2.0 - 7.6 x10 3/uL) 19.90 H Lymph # (Auto) (1.0 - 3.8 x10 3/uL) 1.10 [place] # (Auto) (0.1 - 0.8 x10 3/uL) [...] pelvis to be completed at 1938 RPT #:[id number] OF REPORTPRProgress qhzo6950-40-32R45:36:00G.YFRH46282258-5919T VAvailable for patient lsxbATYXDMDGUZXOTO7335-49-36A91:38:23 [facility] 2022-08-20 16:36:00 [id number]esdB QaE PgCyRVQ8cqhUAWQKjok/Zt5JmbV+SmUFq8464-84-41 T16:36:00 [facility] ([facility])Critical Care Progress NoteREPORT#:[id number] REPORT STATUS: SignedDATE:08/20/22 TIME: 1636 PATIENT: KARMA ROWLAND UNIT #: [id number]#: [id number] ROOM/BED: V485-1VZQ: 61 AGE: 56 SEX: M ATTEND: Wilbert Ramires MDADM AUTHOR: Alma De La Rosa MACHINIST APPRENTICE WOOD * ALL edits or amendments must be [...] Mean Pulse Ox FiO2 08/19-08/20 97.7-98.2 66-96 - 70-141/45-76 54-99 90-100 24 hour I O [...] range of motion, edema, moves allMusculoskeletal decreased ROMNeuro/CONTRACT RUNNER: alert, 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, 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, no [...] ABSCESS: Wound Culture - RES COAG POS RWPQNTEBLQRUCZ50/28 1210 ABSCESS: Anaerobic Culture - RES08/19 1210 ABSCESS: Gram Stain - RES08/18 0915 FOOT: Wound Culture - ORD08/18 0207 FOOT: Wound Culture - RES STAPH AUREUS,METHICILLIN RESIS08/18 0207 THROAT: Group A Streptococcus Screen (VERONICA) - COMP08/18 0207 THROAT: Streptococcus Culture - COMP08/18 0203 BLOOD: Blood Culture - COMP STAPH AUREUS,METHICILLIN RESIS08/18 0203 BLOOD: Blood Culture Gram Stain - COMP08/18 0203 BLOOD: Blood Culture - [...] merrem/ clindamycinEndo: insulin protocol + lantus per bread distributor. gap closed. a1c>14.MUSK: s/p RLE debridement on 08/19 GI px: pepcid -- pt is anemic with no clear source of bleeding will cont for nowDVT px: hep sqDispo: ICU I have spent 25 minutes critical care time assessing, reviewing labs and imagingand discussing plan of care with the critical care emr implementation specialist. at 1644 RPT #:[id number] OF REPORTPRProgress kqsf1701-66-59V99:36:00G.[id number] VAvailable for patient utfpEGPWYFCTICFUNN3626-39-66F73:44:11 [facility] 2022-08-20 15:25:00 [id number]a1Pi 3yE 0ZsPZYgyN4PRFGTn12qASEuCt0mFUO5GO7824-80-25 T15:25:00 [facility])Endocrinology Progress NoteREPORT#:[id number] REPORT STATUS: SignedDATE:08/20/22 TIME: 1525 PATIENT: KARMA ROWLAND UNIT #: [id number]#: [id number] [address]M: [address] AGE: 56 SEX: M ATTEND: Wilbert Ramires MDADM AUTHOR: Braxton Chapin MD * ALL edits or amendments must be made on the electronic/computer document * SubjectivePatient reports: no complaints Objective GeneralVS:Last Documented: Result Date Time Pulse Ox 97 08/20 0700 B/P 124/69 08/20 0700 B/P Mean 92 08/20 0700 Pulse 82 08/20 0700 Resp 15 08/20 0700 Temp 36.8 03/29 0400 O2 Delivery Nasal cannula 08/19 1419 [...] Sodium Chloride (SODIUM CHLORIDE 0.9%) 1,000 ML .M38F89M IV Dextrose/Water (DEXTROSE 10% IN WATER) 250 [...] (Auto) (14.0 - 32.0 %) 4.8 L [place] % (Auto) (4.8 - 9.0 %) 2.9 L Eos % (Auto) (0.3 - 3.7 %) 0.0 L Baso % (Auto) (0.0 - 2.0 %) 0.2 Neut # (Auto) (2.0 - 7.6 x10 3/uL) 19.90 H Lymph # (Auto) (1.0 - 3.8 x10 3/uL) 1.10 [place] # (Auto) (0.1 - 0.8 x10 3/uL) [...] (Auto) (14.0 - 32.0 %) 3.8 L [place] % (Auto) (4.8 - 9.0 %) 3.7 L Eos % (Auto) (0.3 - 3.7 %) 0.0 L Baso % (Auto) (0.0 - 2.0 %) 0.3 Neut # (Auto) (2.0 - 7.6 x10 3/uL) 17.97 H Lymph # (Auto) (1.0 - 3.8 x10 3/uL) 0.76 L [place] # (Auto) (0.1 - 0.8 x10 3/uL) [...] pH (5.0 - 7.0) 5.0 Ur Specific [place] (1.005 - 1.030) 1.013 Urine Protein (NEGATIVE) [...] (Auto) (14.0 - 32.0 %) 4.3 L [place] % (Auto) (4.8 - 9.0 %) 3.1 L Eos % (Auto) (0.3 - 3.7 %) 0.0 L Baso % (Auto) (0.0 - 2.0 %) 0.3 Neut # (Auto) (2.0 - 7.6 x10 3/uL) 19.17 H Lymph # (Auto) (1.0 - 3.8 x10 3/uL) 0.91 L [place] # (Auto) (0.1 - 0.8 x10 3/uL) [...] Stain - RES ABSCESS Recent Impressions:ULTRASOUND - [employer] UNI/LTD 08/19 0950 Report Impression - Status: [...] care and IV antibiotics. at 1526 RPT #:[id number] OF REPORTPRProgress xakh6872-31-13L26:25:00G.[id number] VAvailable for patient gjjeTHONKDTNPHFFSK0596-70-57V81:27:02 [facility] 2022-08-20 14:54:00 [id number]XiK1 g5Y YKfRHbt9n0Q/QrcpX9ue/4tF/8G17ss2w6041-95-80 T14:54:00 [facility] ([facility])Infectious Dis. Progress NoteREPORT#:[id number] REPORT STATUS: SignedDATE:08/20/22 TIME: 1454 PATIENT: KARMA ROWLAND UNIT #: [id number]#: [id number] [address]WS: [birth year] AGE: 56 SEX: M ATTEND: Wilbert Ramires [facility] AUTHOR: Anthony Curtis MD * ALL edits or amendments must be made on the electronic/computer document * SubjectiveChief complaint:Follow-up on MRSA bacteremia, right lower extremity necrotizing soft tissueinfection.HPI:Patient reports feeling better subjectively. Denies acute or new complaints. No major overnight events. Objective GeneralVS/I O:Vital Signs Date Temp Pulse Resp B/P B/P Mean Pulse Ox FiO2 08/19-08/20 97.7-98.4 66-96 10-27 70-141/44-76 54-99 90-100 Last Documented: Result Date [...] 08/20 0645 80 16 123/66 90 97 03/29 0630 81 17 132/73 98 97 / 0615 85 21 141/63 90 95 08/20 0600 80 15 131/75 97 98 /29 0545 80 12 119/68 88 98 / 0530 79 13 132/76 99 99 03/29 0515 75 14 122/69 90 98 03/29 0500 72 13 111/62 81 98 03/29 0445 67 12 94/58 70 96 03/29 0430 68 13 100/60 75 97 03/29 0415 68 12 100/57 73 97 /29 0400 98.2 08/20 0400 72 12 113/68 86 97 03/29 [...] 03/28 1735 71 15 82/52 62 96 03/ 1730 71 14 82/52 62 97 03/28 1725 71 15 78/50 60 97 03/ 1720 73 14 84/54 65 98 03/28 1715 73 16 81/49 61 97 03/ 1710 75 15 77/48 58 97 03/28 1705 75 15 77/49 59 97 03/28 1700 75 16 78/49 59 98 03/ 1655 75 16 70/47 55 97 03/28 1650 75 17 77/50 58 97 03/ 1645 75 17 75/49 58 97 /28 1640 75 16 75/49 57 97 03/ 1635 75 16 79/46 58 96 03/ 1630 75 15 76/51 59 96 03/ 1625 75 16 75/52 60 96 / 1620 77 18 79/50 59 97 03/ 1615 75 15 79/52 62 96 03/28 1610 75 14 77/52 61 96 03/ 1605 75 15 78/50 59 95 03/ 1600 98.4 / 1600 76 14 78/51 60 98 03/ 1555 77 17 78/53 61 98 / 1550 78 18 78/50 60 97 03/28 1545 77 17 75/47 56 97 / 1540 76 18 76/46 56 95 03/28 1535 76 16 75/47 55 97 03/ 1534 79 20 74/44 54 94 / 1530 77 16 76/48 57 97 03/28 1525 79 17 85/53 65 97 03/ 1520 82 17 84/55 63 97 / 1516 83 17 83/53 64 97 / 1511 83 18 81/60 66 95 /28 1505 83 20 82/50 62 95 03/28 1500 80 18 83/51 63 96 /28 1455 81 18 86/54 66 96 24 [...] soft, no distentionExtremities: edema, RLE pitting edema notedNeuro/CONTRACT RUNNER: alert, 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 Considered stroke alert: [...] vancomycin, started 3Day 3 at 1457 RPT #:[id number] OF REPORTPRProgress ejqz9689-60-21H25:54:00G.[id number] VAvailable for patient afduGJXPLDQENIGRDR9752-63-39S13:57:56 [facility] 2022-08-20 13:23:00 [id number]uVrc cwv wLbt6sC5KYK8rtvjlH8zjJ6dSmNFuWcEC6435-14-09 T13:23:00 [facility] NoteRE[facility]#:[id number] REPORT STATUS: SignedDATE:08/20/22 TIME: 1323 PATIENT: KARMA ROWLAND UNIT #: [id number]#: [id number] [address] [birth year] AGE: 56 SEX: M ATTEND: Wilbert Ramires [facility] AUTHOR: Forrest Oswald MD * ALL edits [...] Sodium Chloride (SODIUM CHLORIDE 0.9%) 1,000 ML .Z80S62L IV Dextrose/Water (DEXTROSE 10% IN WATER) 250 [...] moves all, right foot pain. dressing in place.Neuro/CONTRACT RUNNER: alert, oriented x 3, CNII-XII intact, normal [...] 5.0 g/dL) 1.70 L 08/19 1727 1652 Chemistry Sodium (134 - 147 [...] - 32.0 %) 4.8 L 3.8 L [place] % (Auto) (4.8 - 9.0 %) 2.9 L 3.7 L Eos % (Auto) (0.3 - 3.7 %) 0.0 L 0.0 L Baso % (Auto) (0.0 - 2.0 %) 0.2 0.3 Neut # (Auto) (2.0 - 7.6 x10 3/uL) 19.90 H 17.97 H Lymph # (Auto) (1.0 - 3.8 x10 3/uL) 1.10 0.76 L [place] # (Auto) (0.1 - 0.8 x10 3/uL) [...] pH (5.0 - 7.0) 5.0 Ur Specific [place] (1.005 - 1.030) 1.013 Urine Protein (NEGATIVE) [...] surgery. Continue current care. at 1325 RPT #:[id number] OF REPORTPRProgress jgkl9844-30-04M15:23:00G.ZJHQ91691552-3840N VAvailable for patient bumoQUVGOMQGTNUYVO0296-52-58E27:26:17 [facility] 2022-08-20 10:53:00 [id number]+kZ02RoGa7R2MsgsAtivTlV 7+U 2Xq1phBefcVLWhwX3vo4d4DFTz36zvYVa1631-88-66 T10:53:00 [facility]Hospital[facility] Progress NoteREPORT#:[id number] REPORT STATUS: SignedDATE:08/20/22 TIME: 1053 PATIENT: KARMA ROWLAND UNIT #: [id number]#: [id number] [address] [birth year] AGE: 56 SEX: M ATTEND: [...] 08/20 0415 68 12 100/57 73 97 03/29 [...] 2025 75 10 112/57 77 97 03/28 2019 75 13 99/56 73 98 03/28 2015 78 13 101/59 74 97 03/28 2009 77 15 101/59 75 97 03/28 2006 76 14 101/60 76 98 03/28 2005 76 12 97/57 72 97 03/28 1999 98.0 03/28 1999 74 13 93/55 69 98 03/28 1959 [...] 15 101/55 72 98 Nasal 2 cannula 03/28 1335 81 18 94/52 66 98 03/28 1330 81 16 93/51 67 98 03/28 1325 79 16 83/53 64 98 03/28 1322 Simple 8 mask 03/28 1320 83 17 106/54 77 98 03/28 1315 84 18 104/57 78 99 08/19 [...] Sodium Chloride (SODIUM CHLORIDE 0.9%) 1,000 ML .Q88S03S IV Dextrose/Water (DEXTROSE 10% IN WATER) 250 [...] There were blisters with some blisters wereopen. Neuro/CONTRACT RUNNER: alert, oriented X 3, 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 Considered [...] (3.4 - 5.0 g/dL) 1.70 L 08/19 1652 1601 Chemistry Sodium (134 - 147 [...] (Auto) (14.0 - 32.0 %) 3.8 L [place] % (Auto) (4.8 - 9.0 %) 3.7 L Eos % (Auto) (0.3 - 3.7 %) 0.0 L Baso % (Auto) (0.0 - 2.0 %) 0.3 Neut # (Auto) (2.0 - 7.6 x10 3/uL) 17.97 H Lymph # (Auto) (1.0 - 3.8 x10 3/uL) 0.76 L [place] # (Auto) (0.1 - 0.8 x10 3/uL) [...] pH (5.0 - 7.0) 5.0 Ur Specific [place] (1.005 - 1.030) 1.013 Urine Protein (NEGATIVE) [...] - will likely need wound vac and medical terminologist IV antibiotic therapy - d/w at bedside - PT/OT at 1057 RPT #:[id number] OF REPORTPRProgress wuig3984-79-19H69:53:00G.JNSD39255864-4995O VAvailable for patient lemaJPLRJCCGWOJIJB0466-59-54T91:58:13 [facility] 2022-08-19 20:38:00 [id number]uvZd Sbr VNMT3065gz1Hiaw60ZNZIWkPVf+qrS1Bi5873-23-45 T20:38:00 [facility] ([facility])Cardiology Progress NoteREPORT#:[id number] REPORT STATUS: SignedDATE:08/19/22 TIME: 2037 PATIENT: KARMA ROWLAND UNIT #: [id number]#: [id number] [facility] AGE: 56 SEX: M ATTEND: Wilbert Ramires AUTHOR: Napoleon Parham MD * ALL edits [...] 08/19 1730 71 14 82/52 62 97 / 1725 71 15 78/50 60 97 / 1720 73 14 84/54 65 98 / 1715 73 16 81/49 61 97 / 1710 75 15 77/48 58 97 08/19 1705 75 15 77/49 59 97 08/19 1700 75 16 78/49 59 98 08/19 1655 75 16 70/47 55 97 / 1650 75 17 77/50 58 97 / 1645 75 17 75/49 58 97 / 1640 75 16 75/49 57 97 / 1635 75 16 79/46 58 96 / 1630 75 15 76/51 59 96 08/19 1625 75 16 75/52 60 96 / 1620 77 18 79/50 59 97 / 1615 75 15 79/52 62 96 / 1610 75 14 77/52 61 96 / 1605 75 15 78/50 59 95 / 1600 98.4 08/19 1600 76 14 78/51 60 98 / 1555 77 17 78/53 61 98 03/28 [...] 03/28 1440 82 16 85/54 65 96 03/ 1435 82 16 88/51 65 96 03/28 [...] 15 101/55 72 98 Nasal 2 cannula / 1335 81 18 94/52 66 98 03/28 1330 81 16 93/51 67 98 03/28 1325 79 16 83/53 64 98 03/28 1322 Simple 8 mask 03/28 1320 83 17 106/54 77 98 03/28 1315 84 18 104/57 78 99 03/28 1310 84 15 102/56 73 99 03/28 1305 83 15 96/54 70 99 03/28 1300 84 14 94/52 68 98 03/28 1255 81 15 90/50 64 95 03/28 1255 81 15 90/50 95 03/28 1251 82 18 91/51 64 100 03/28 1250 81 18 90/50 63 100 03/28 1245 81 16 90/55 68 100 08/19 [...] 100 20 115/59 81 96 08/19 0800 101.9 08/19 0800 99 18 114/61 [...] Sodium Chloride (SODIUM CHLORIDE 0.9%) 1,000 ML .H77J38L IV Dextrose/Water (DEXTROSE 10% IN WATER) 250 [...] 20 ML .STK-MED ONE IV (DC) Rocuronium Sinai (ZEMURON) 0 .STK-MED ONE IV (DC) Vancomycin [...] to auscultation, no distressLower extremity: LE assessment: edemaNeuro/CONTRACT RUNNER: alert, oriented X 3 Considered stroke alert: [...] - 32.0 %) 3.8 L 4.3 L [place] % (Auto) (4.8 - 9.0 %) 3.7 L 3.1 L Eos % (Auto) (0.3 - 3.7 %) 0.0 L 0.0 L Baso % (Auto) (0.0 - 2.0 %) 0.3 0.3 Neut # (Auto) (2.0 - 7.6 x10 3/uL) 17.97 H 19.17 H Lymph # (Auto) (1.0 - 3.8 x10 3/uL) 0.76 L 0.91 L [place] # (Auto) (0.1 - 0.8 x10 3/uL) [...] pH (5.0 - 7.0) 5.0 Ur Specific [place] (1.005 - 1.030) 1.013 Urine Protein (NEGATIVE) [...] 2.40 mg/dL) 2.13 Radiology data:Recent Impressions:ULTRASOUND - [employer] UNI/LTD 08/19 0950 Report Impression - Status: [...] as RN, will follow. at 1329 RPT #:[id number] OF REPORTPRProgress ztqg1707-68-35I58:38:00G.BUPD11339980-1527P VAvailable for patient boklJJXGGIVJOICUMX6288-81-45Y46:29:48 [facility] 2022-08-19 17:01:00 [id number]/B6bvS3/2ws5 TR6 oFYegytWGxO0uzhSZzYgv+Fd/LTK7WDBZ1792-26-95 T17:01:00 [facility] ([facility])Infectious Dis. Progress NoteREPORT#:[id number] REPORT STATUS: SignedDATE:08/19/22 TIME: 1701 PATIENT: KARMA ROWLAND UNIT #: [id number]#: [id number] [address] AGE: 56 SEX: M ATTEND: Wilbert Ramires [facility] AUTHOR: Anthony Curtis MD * ALL edits [...] 03 1310 84 15 102/56 73 99 03 1305 83 15 96/54 70 99 03/ 1300 84 14 94/52 68 98 08/19 1255 81 15 90/50 64 95 / 1255 81 15 90/50 95 08/19 1251 82 18 91/51 64 100 03/ 1250 81 18 90/50 63 100 03 1245 81 16 90/55 68 100 03 1240 82 16 92/55 68 100 03 [...] 03/ 1045 101 18 112/60 80 97 03/ 1030 101 19 115/60 82 96 / 1015 102 18 115/60 80 95 / 1000 101 20 110/58 78 95 08/19 0945 102 18 110/57 78 96 08/19 0930 101 18 106/55 74 95 03/ 0915 101 20 111/58 79 95 03 0900 101 19 112/56 79 94 08/19 0845 102 28 105/69 83 96 08/19 0830 101 20 110/59 81 96 08/19 0815 100 20 115/59 81 96 / 0800 99 18 114/61 81 97 / 0745 98 17 113/60 79 95 / 0730 96 17 113/55 79 97 03/ 0715 94 15 107/55 76 95 / 0700 96 20 101/56 75 97 / 0600 91 16 114/58 80 95 03/ 0545 91 16 114/55 78 95 03/ 0530 95 21 119/59 81 96 / 0515 92 18 118/60 83 97 / 0514 94 15 96 03/ 0500 92 16 109/58 79 95 03/ 0445 91 17 109/59 80 96 / [...] / 0145 92 20 103/57 75 93 / 0130 92 20 105/57 77 92 / 0115 91 19 100/55 75 92 / 0100 95 22 90/51 66 95 / 0045 97 22 97/56 70 94 / 0030 92 20 91/55 69 94 / 0015 98 20 105/59 77 95 / 0000 98.9 Room air 08/19 0000 94 19 97/55 73 91 08/18 2345 101 23 100/57 75 95 / 2330 97 21 101/55 75 95 / 2315 98 21 108/55 75 94 / [...] / 1930 104 20 107/59 79 96 / 1915 104 20 107/55 75 96 / 1900 109 20 119/63 84 96 / 1834 107 25 96 / 1830 103 26 107/55 75 97 / 1815 105 24 101/55 71 95 / 1800 101 21 104/52 71 96 / 1745 101 18 96/50 70 97 / 1730 102 24 107/57 77 93 03/ 1715 104 24 117/56 77 94 24 [...] soft, no distentionExtremities: edema, RLE pitting edema notedNeuro/CONTRACT RUNNER: alert, 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 Considered stroke alert: [...] vancomycin, started 3Day 2 at 1710 RPT #:[id number] OF REPORTPRProgress likr3589-30-27K82:01:00G.QLKR41905167-9925O VAvailable for patient bbjpFORCRCLUIXRHQB5669-90-48M58:10:23 [facility] 2022-08-19 16:20:00 [id number]2zGy HxU sY24mcB0PnJXFYRnAPYWCaVyfazsgpik20154-08-78 T16:20:00 [facility] ([facility])Pharmacy Prog.Note-VancomycinREPORT#:[id number] REPORT STATUS: SignedDATE:08/19/22 TIME: 1620 PATIENT: KARMA ROWLAND UNIT #: [id number]#: [id number] [address]TMG: [address] AGE: 56 SEX: M ATTEND: Wilbert Ramires [facility] AUTHOR: Tolu Tobias [facility] * ALL edits or amendments must be made on the electronic/computer document * Vancomycin Vancomycin Medication TherapyGoal: AUC 400-600 mg*hr/LIndication for treatment:Empiric (now confirmed foot infection and bacteremia)Weight: Actual weight (kg): 77.7VS and I/O:Vital Signs Date Temp Pulse Resp B/P B/P Mean Pulse Ox FiO2 08/18-08/19 36.6-37.7 75-135 14-30 74-156/44-78 54-96 91-100 72 hours ending at 0708/19 19008/17 07 1900Intake 3418.00TotalOutput 1600TotalBalance 1818.00 Intake, IV 2818.00Intake, 600OralOutput, 1600UrinePatient 77.7 kgWeightWeight Stated/Rep ortedMeasurementMethod 72 Hour I O Total 08/19 07 Intake Total 3418.00 Output Total 1600 Balance [...] - 11.0 x10 3/uL) 26.5 H Microbiology:08/19 1209 ABSCESS: Wound Culture - RES08/19 1210 ABSCESS: Anaerobic Culture - RES08/19 1210 ABSCESS: Gram Stain - RES08/18 0915 FOOT: Wound Culture - ORD08/18 0207 FOOT: Wound Culture - RES COAG POS LWRISHTWYPAJAK53/27 020 THROAT: Group A Streptococcus Screen (VERONICA) - COMP08/18 020 THROAT: Streptococcus Culture - COMP08/18 020 BLOOD: Blood Culture - RES COAG POS KSAMPHAQZJVFLF04/27 020 BLOOD: Blood Culture Gram Stain - RES08/18 020 BLOOD: Blood Culture - RES COAG POS ZFJLJXSYGTJDYQ71/27 020 BLOOD: Blood Culture Gram Stain - [...] 400-600 mcg*hr/mLConcomitant Antibiotics: -Clindamycin 900 mg IV w4b-Wrgpldfbg 500 mg IV q6h 08/19 A/P: Labs [...] Thank you for this consult at 1621 [facility] #:[id number] OF REPORTPRProgress jfdb0273-36-54A02:20:00G.LNPU66206514-1070O VAvailable for patient uukxGUHATKTLRDYZRG8872-58-76G74:22:06 [facility] 2022-08-19 15:40:00 [id number]S85w znZ pmCBou9sIq8LUSpBYogZC+R8SMPC/cpVW9294-28-71 T15:40:00 [facility] ([facility])Critical Care Progress NoteREPORT#:[id number] REPORT STATUS: SignedDATE:08/19/22 TIME: 1540 PATIENT: KARMA ROWLAND UNIT #: [id number]#: [id number] [address] AGE: 56 SEX: M ATTEND: Wilbert Ramires MDADM AUTHOR: Alma De La Rosa MACHINIST APPRENTICE WOOD * ALL edits or amendments must be [...] range of motion, edema, moves allMusculoskeletal decreased ROMNeuro/CONTRACT RUNNER: alert, 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, 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, no [...] FOOT: Wound Culture - RES COAG POS QDDNQGLWKMWNUH93/27 0207 THROAT: Group A Streptococcus Screen (VERONICA) - COMP08/18 0207 THROAT: Streptococcus Culture - COMP08/18 0203 BLOOD: Blood Culture - RES COAG POS REYFPZALAACANL02/27 0203 BLOOD: Blood Culture Gram Stain - RES08/18 0203 BLOOD: Blood Culture - RES COAG POS TXUPEQAKWOLQQW53/27 0203 BLOOD: Blood Culture Gram Stain - [...] merrem/ clindamycinEndo: insulin protocol + lantus per bread distributor. gap closed. a1c>14.MUSK: s/p RLE debridement on 08/19 GI px: pepcidDVT px: hep sqDispo: ICU I have spent 35 minutes critical care time assessing, reviewing labs and imagingand discussing plan of care with the critical care emr implementation specialist. at 1611 RPT #:[id number] OF REPORTPRProgress dmet5612-45-95U25:40:00G.NPFD27715671-0075Q VAvailable for patient hewaFQAMDBCGUOQJCK7775-15-73W22:11:20 [facility] 2022-08-19 15:15:00 [id number]+ qD6 o8R9rL3HDhDZWFDcWT74W6VsJzaYECKWq6214-43-49 T15:15:00 [facility])Endocrinology Progress NoteREPORT#:[id number] REPORT STATUS: SignedDATE:08/19/22 TIME: 1515 PATIENT: KARMA ROWLAND UNIT #: [id number]#: [id number] [address] AGE: 56 SEX: M ATTEND: Wilbert [...] 20 ML .STK-MED ONE IV (DC) Rocuronium [facility] (ZEMURON) 0 .STK-MED ONE IV (DC) Vancomycin [...] (Auto) (14.0 - 32.0 %) 4.3 L [place] % (Auto) (4.8 - 9.0 %) 3.1 L Eos % (Auto) (0.3 - 3.7 %) 0.0 L Baso % (Auto) (0.0 - 2.0 %) 0.3 Neut # (Auto) (2.0 - 7.6 x10 3/uL) 19.17 H Lymph # (Auto) (1.0 - 3.8 x10 3/uL) 0.91 L [place] # (Auto) (0.1 - 0.8 x10 3/uL) [...] Stain - RES ABSCESS Recent Impressions:[facility] 08/19 0950 Report Impression [...] care and IV antibiotics. at 1516 RPT #:[id number] OF REPORTPRProgress gynm3889-10-60H64:15:00G.[id number] VAvailable for patient iozeVOZNUXWUWYQSXU7950-97-62E73:16:30 [facility] 2022-08-19 12:46:00 [id number] Gz6 mk6GPAAPJUbs+PuMMRcypLukIMBbG1YRC3193-68-04 T12:46:061266-[address] [place], [place] [address] PATIENT NAME: KARMA ROWLAND ADMIT DATE: 08/18/22ACCOUNT NO: [id number] ROOM NO: [facility] AGE: 56 REPORT TYPE: OPERATIVE REPORT SEX: M ADMITTING PHYSICIAN:Wilbert Ramires MD ATTENDING PHYSICIAN:Wilbert Ramires MD OPERATION DATE: SURGEON: Liam Pedersen DPM DIRECTOR SOFTWARE QUALITY ASSURANCE: No pharmacy affairs assistant. PREOPERATIVE DIAGNOSES:1. Gas gangrene, right foot [...] as well. Then, I utilized the pulse waste transportation technician machine with the saline and gentamicin. I [...] with saline and gentamicin irrigation with pulse waste transportation technician machine. Make sure we had good hemostasis. [...] DPM Date Dictated: 08/19/2022 12:46:06Date Transcribed: 08/19/2022 15:59:49SHAYAN/IVÁN/Desean #: [id number] ID: [id number] by Liam Pedersen DPM On 08/25/2022 09:42:00 PM at 0942 PATIENT NAME: KARMA ROWLAND plewzk0030-70-78J18:59:00G.[id number] AVAvailable for patient xtiyXITERUZTTPEFSU3940-47-72T17:42:34 [facility] 2022-08-19 07:13:00 [id number] CIR M2RminaubIX1PUL6mqigsaVxx6IvpnB8S9975-73-91 T07:13:00 [facility] NoteREPORT#:[id number] REPORT STATUS: SignedDATE:08/19/22 TIME: 712 PATIENT: KARMA ROWLAND UNIT #: [id number]#: [id number] [address] AGE: 56 SEX: M ATTEND: Wilbert Ramires [facility] AUTHOR: Wilbert Ramires MD * ALL edits [...] 08/18 2200 100 21 105/57 76 92 08/187 99 25 108/54 76 08/19 1999 99.6 Room air 08/19 1999 100 20 102/55 74 95 08/18 1930 104 20 107/59 79 96 08/18 1915 104 20 107/55 75 96 03/ 1900 109 20 119/63 84 96 08/18 1834 107 25 96 03/ 1830 103 26 107/55 75 97 03/27 1815 105 24 101/55 71 95 03/27 1800 101 21 104/52 71 96 08/18 1745 101 18 96/50 70 97 03/ 1730 102 24 107/57 77 93 03/ 1715 104 24 117/56 77 94 03/ 1700 106 22 112/58 79 95 03/ 1645 108 26 106/71 81 96 08/18 1637 109 23 96 08/18 1630 107 21 116/58 80 96 03 1615 106 20 108/58 77 97 03/ 1600 98.9 109 22 101/58 72 96 Room air 08/18 1600 104 22 101/58 77 96 08/18 1545 101 21 97/56 73 95 08/18 1530 103 23 97/56 73 96 03 1515 101 23 99/56 74 96 03/ 1500 100 23 104/55 78 95 03/ 1445 113 25 111/58 80 97 / 1430 101 19 95 08/18 1415 100 20 108/51 74 96 / 1400 105 20 103/58 75 98 08/18 1345 102 22 103/58 77 96 08/18 1337 102 19 97 / 1330 101 21 98/56 74 95 / 1315 103 21 95/53 69 95 08/18 1300 102 22 94/53 70 96 08/18 1245 104 22 104/57 76 96 03 1230 107 21 107/56 78 96 08/18 1215 108 21 102/57 76 95 / 1200 99.4 105 17 106/59 74 97 Room air 08/18 1200 108 17 106/59 77 97 03/ 1145 109 22 111/57 80 96 03/ 1130 113 21 117/57 79 98 03/27 1115 109 19 114/56 80 96 03/27 1100 108 19 130/53 78 98 03/ 1046 110 20 156/65 93 100 08/18 1031 134 25 138/65 94 99 03/ 1016 109 28 141/67 96 93 08/18 1015 109 26 100 03/ 1000 108 27 127/64 89 100 03/ 0945 105 27 116/55 79 100 08/18 [...] There were blisters with some blisters wereopen. Neuro/CONTRACT RUNNER: alert, oriented X 3, 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 Considered [...] (Auto) (14.0 - 32.0 %) 4.3 L [place] % (Auto) (4.8 - 9.0 %) 3.1 L Eos % (Auto) (0.3 - 3.7 %) 0.0 L Baso % (Auto) (0.0 - 2.0 %) 0.3 Neut # (Auto) (2.0 - 7.6 x10 3/uL) 19.17 H Lymph # (Auto) (1.0 - 3.8 x10 3/uL) 0.91 L [place] # (Auto) (0.1 - 0.8 x10 3/uL) [...] - keep in ICU at 0827 RPT #:[id number] OF REPORTPRProgress jdmu3233-31-12E23:13:00G.IKJJ80632790-8738B VAvailable for patient ibraYEJYIJBCFBZXYP3220-12-25L35:28:02 [facility] 2022-08-18 22:27:00 [id number]+iZGvADm/Ax2J+8ai7sqe pD5 gw9jFxxwPgmS/Ifsi09uL1tSoM3u2/5tq0980-41-36 T22:27:112281-[address] [address] PATIENT NAME: KARMA ROWLAND ADMIT DATE: 08/18/22ACCOUNT NO: [id number] ROOM NO: [facility] AGE: 56 REPORT TYPE: eECHOCARDIOGRAM REPORT SEX: M ADMITTING PHYSICIAN:Wilbert Ramires MD ATTENDING PHYSICIAN:Wilbert Ramires MD *[address] [address]Wwkhh: [phone]: [phone] Transthoracic Echocardiogram Patient: De Rowland Date: 08/18/2022 BP: 156 / 65 Location: [facility]: [id number] : 1965 Age: 56 Height: 66 in / 167.6 cmAccession#: [id number] Gender: M Weight: 170.6 lb / 77.6 kgBMI/BSA: 27.6 kg/m 2 / 1.87 m 2 *Ordering Physician: * Rohit BenitezInterpreting Physician: * Napoleon Parham MD*Entry Level Electrical Engineer: * Nubia To Indications: Cardiac clearance. Study [...] left ventricular relaxation (grade 1 diastolicPATIENT NAME: KARMA ROWLAND dysfunction).Right ventricle: The cavity size is normal. [...] cm 2 --------- Pulmonic valve Value Ref VT v, ED 1.07 m/sec --------- Aortic root [...] by Napoleon Parham MD08/18/2022 22:27 PATIENT NAME: ROWLANDKARMA at 2227 PATIENT NAME: ROWLAND,KARMA 2:27:00G.EMK57391987-9205IRFnmsdfruq for patient zcdbSGCAFTNHMAGUDW1046-42-72K33:28:13 [facility] 2022-08-18 19:00:00 [id number]+xpLJ7cS4Cr2hLZPhtiQE9qMf LAy giPsi8CjXQPm1EXaeRAoLpmFhIBq5SmHM2653-55-68 T19:00:793527-[address] [address] PATIENT NAME: KARMA ROWLAND ADMIT DATE: 08/18/22ACCOUNT NO: [id number] [place]OM NO: [facility] AGE: 56 REPORT TYPE: CONSULTATION REPORT SEX: [...] MD Date Dictated: 08/18/2022 19:00:04Date Transcribed: 08/18/2022 20:29:11JH/DIV/NAGMikaylab #: [id number] ID: [id number] and Edited by David Du MD On 09/16/22 4:52:30 PM at 0459 PATIENT NAME: KARMA ROWLAND :29: 00G.[id number] for patient sacjJWGZRDVIAASDUQ9838-83-72L58:00:16 [facility] 2022-08-18 17:07:00 [id number]/upgwv89FwnOgJJx5KxIi0wh 3Ul ILFlukfnTHenY9NrsSpZUiEbWwMQ3Nv9e6759-65-66 T17:07:00 [facility] ([facility])Infect Disease Consult NoteREPORT#:[id number] REPORT STATUS: SignedDATE:08/18/22 TIME: 1707 PATIENT: KARMA ROWLAND UNIT #: [id number]#: [id number] [address] AGE: 56 SEX: M ATTEND: Wilbert Ramires MDA AUTHOR: Anthony Curtis MD * ALL edits [...] 08/18 1600 104 22 101/58 77 96 03/27 1545 101 21 97/56 73 95 03/27 1530 103 23 97/56 73 96 03/ 1515 101 23 99/56 74 96 03/27 1500 100 23 104/55 78 95 03/27 1445 113 25 111/58 80 97 03/27 1430 101 19 95 03/ 1415 100 20 108/51 74 96 03/27 1400 105 20 103/58 75 98 03/27 1345 102 22 103/58 77 96 03/ 1337 102 19 97 03/27 1330 101 21 98/56 74 95 03/27 1315 103 21 95/53 69 95 03/27 1300 102 22 94/53 70 96 03/27 1245 104 22 104/57 76 96 03/ 1230 107 21 107/56 78 96 03/ 1215 108 21 102/57 76 95 03/27 1200 99.4 105 17 106/59 74 97 Room air / 1200 108 17 106/59 77 97 03/ 1145 109 22 111/57 80 96 03/ 1130 113 21 117/57 79 98 03/27 1115 109 19 114/56 80 96 03/27 1100 108 19 130/53 78 98 03/ 1046 110 20 156/65 93 100 03/ 1031 134 25 138/65 94 99 03/27 1016 109 28 141/67 96 93 03/ 1015 109 26 100 03/27 1000 108 27 127/64 89 100 03/ 0945 105 27 116/55 79 100 03/27 0930 135 26 120/57 82 99 03/27 0915 101 24 126/56 82 100 03/27 0900 98 16 112/59 77 100 03/27 0845 93 23 110/57 78 100 03/27 0830 95 21 112/59 81 100 03/27 0815 93 18 117/58 81 100 03/27 0800 99.5 117 21 113/69 83 98 Room air 03/ 0800 116 30 108/78 88 100 03/27 0745 86 27 104/69 77 99 03/27 0730 88 25 108/70 85 100 03/27 0718 83 14 101/56 73 100 03/27 0700 82 17 87/58 68 100 03/27 0530 85 16 107/58 75 98 03/27 0500 86 21 99/59 73 99 03/27 0430 89 20 94/55 70 99 08/18 [...] soft, no distentionExtremities: edema, RLE pitting edema notedNeuro/CONTRACT RUNNER: alert, 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Considered stroke alert: noSkin: [...] an underlying process or neoplasm. Impression By: TipTPPaola - Dom Adams M.D.RADIOLOGY - XR FOOT [...] the patient with you. at 1721 RPT #:[id number] OF REPORTTHQfzmoxdbaqak4798-54-34E52:07:00G .AQRK96846450-5671KTZorpwaqcf for patient ctzaOWSWJINQSMVVZD6034-03-60T35:21:38 [facility] 2022-08-18 17:04:00 [id number]Co2 8jN wqUbcAqLzU4gvAGHRehNW00X4SeVy2uL34922-87-88 T17:04:00 [facility] ([facility])Endocrinology Progress NoteREPORT#:[id number] REPORT STATUS: SignedDATE:08/18/22 TIME: 1704 PATIENT: KARMA ROWLAND UNIT #: [id number]#: [id number] [address] AGE: 56 SEX: M ATTEND: [...] 0915 Wound Culture - ORD FOOT 08/18 020 Wound Culture - RECD FOOT 08/18 020 Group A Streptococcus Screen (VERONICA) - COMP THROAT 08/18 020 Streptococcus Culture - COMP THROAT 08/18 0203 [...] Sepsis5. Altered mental status6. High LFTsBlood sugar 402we442 mg/dL.A gap 25MmU9k 13.4%White count 26.5Sodium 121.Adjust insulin drip settingsStart by mouth feedingsWound care and IV antibiotics. at 1707 [facility] #:[id number] OF REPORTPRProgress vsci5584-42-73P34:04:00G.LWCY02000392-9862Y VAvailable for patient mmavMJDUEHNJLWHJOI3612-93-75H59:08:15 [facility] 2022-08-18 16:05:00 [id number]+mAWSKpLiULrDJiCaEfN6EYQgn Adriana MDNpJtD8XQHvtHmbfasCTRR6nFPGgTI/86513-11-69 T16:05:00 [facility]Cardiology ConsultationREPORT#:[id number] REPORT STATUS: SignedDATE:08/18/22 TIME: 1605 PATIENT: KARMA ROWLAND UNIT #: [id number]#: [id number] [facility] AGE: 56 SEX: M ATTEND: iWlbert Ramires MDADM AUTHOR: Rohit Benitez 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 [employer] * ALL edits or amendments must be [...] 03/ 1145 109 22 111/57 80 96 08/18 1130 113 21 117/57 79 98 03 1115 109 19 114/56 80 96 08/18 1100 108 19 130/53 78 98 03 1046 110 20 156/65 93 100 08/18 1031 134 25 138/65 94 99 03/ 1016 109 28 141/67 96 93 08/18 1015 109 26 100 08/18 1000 108 27 127/64 89 100 03 0945 105 27 116/55 79 100 08/18 0930 135 26 120/57 82 99 03 0915 101 24 126/56 82 100 08/18 0900 98 16 112/59 77 100 08/18 0845 93 23 110/57 78 100 08/18 0830 95 21 112/59 81 100 03 0815 93 18 117/58 81 100 08/18 0800 99.5 117 21 113/69 83 98 Room air 08/18 0800 116 30 108/78 88 100 08/18 0745 86 27 104/69 77 99 08/18 0730 88 25 108/70 85 100 03 0718 83 14 101/56 73 100 08/18 [...] to auscultation, no distressLower extremity: LE assessment: edemaNeuro/CONTRACT RUNNER: disoriented Considered stroke alert: noWound/incision: Location:right foot [...] further evaluation. at 1033 at 1357 RPT #:[id number] OF REPORTEZEwmiicbmthvp2816-51-86M56:05:00G .WHXD13062956-6612ANNaelojmpl for patient lawmIFWKCEHAPTCJWO1204-55-97P01:34:10 [facility] 2022-08-18 15:26:00 [id number]+MVi7B5jonBt/CnWqp/mX SzT sMNTQ3TbaS2I8C71v44kmwcE9FTKEnDj61783-78-36 T15:26:662300-[address] [place], [place] [address] PATIENT NAME: KARMA ROWLAND ADMIT DATE: 08/18/22ACCOUNT NO: [id number] ROOM NO: [facility] AGE: 56 REPORT TYPE: CONSULTATION REPORT SEX: M ADMITTING PHYSICIAN:Wilbert Ramires MD ATTENDING PHYSICIAN:Wilbetr Ramires MD CONSULTATION DATE: 08/18/2022 ENDOCRINE CONSULTATION [...] Dictated: 08/18/2022 15:26:32Date Transcribed: 08/18/2022 18:38:46KK/Pernell #: [id number] ID: [id number] by Logan Chapin MD On 09/03/2022 08:32:44 PM at 0833 PATIENT NAME: KARMA ROWLAND :38: 00G.GLO67909899-4117YPFgemsxhtu for patient edyaHNVKDVOPOTTURN9191-65-51P46:33:30 [facility] 2022-08-18 11:20:00 [id number]+OMNIJ8t30zM+NVM4vzO uCh ZCL+PoQrlcuesZjrk6WB+GhXnhGzsCvz47796-66-68 T11:20:00 [facility] Surgery Consult NoteREPORT#:[id number] REPORT STATUS: SignedDATE:08/18/22 TIME: 1120 PATIENT: KARMA ROWLAND UNIT #: [id number]#: [id number] [facility] AGE: 56 SEX: M ATTEND: Wilbert [...] 08/19 0900 AC (VANCOMYCIN HCL) IV 08/25 08 Sodium Chloride 250 ML (SODIUM CHLORIDE 0.9%) Clindamycin Phosphate 50 ML Q8H 08/18 1000 CAN (CLEOCIN 900 MG/NS IV 08/23 0959 50 ML) Vancomycin HCl 1,750 MG ONCE ONE 08/18 0800 DC 08/18 (VANCOMYCIN HCL) IV 08/19 943 0824 Sodium Chloride 500 ML (NS 0.9%) Piperacillin Sod/ 3.375 GM Q8H 08/18 06 AC 08/18 Tazobactam Sod IV 08/25 0459 0616 (ZOSYN 3.375GM) Sodium Chloride 100 ML (SODIUM CHLORIDE 0.9% 100 ML) Miscellaneous 1 EACH ASDIR 08/18 0545 CKD Information IV 09/17 05 (VANCOMYCIN PHARMACY TO DOSE) Blood Formation,Coagulation Sig/Jan Start time Last Medication Dose Route Stop Time Status Admin Heparin Sodium 5,000 UNIT Q8HR 08/18 0600 AC 08/18 (HEPARIN 5000 UNITS/ SUBQ 09/17 0559 0616 ML) Central Nervous System Agents Sig/Ajn Start time Last Medication Dose Route Stop Time Status Admin Acetaminophen 650 MG Q6H PRN PRN 08/18 0945 AC (TYLENOL) PO 09/18 943 Hydrocodone Bitart/ 1 TAB Q4H PRN PRN 08/18 0945 AC Acetaminophen PO 08/24 943 (NORCO 5/325) Morphine Sulfate 2 MG Q4H PRN PRN 08/18 0845 AC (morphine SULFATE) IV 08/24 943 Magnesium Sulfate 50 ML ASDIR PRN 08/18 0545 AC (MAGNESIUM SULFATE IV 09/17 0444 2GM/SWFI 50ML) Magnesium Sulfate 100 ML ASDIR PRN 08/18 0545 AC (MAGNESIUM SULFATE IV 09/17 0444 4GM/SWFI 100ML) Ketorolac 15 MG X1ED STA 08/18 0150 DC 08/18 Tromethamine IV 08/18 0151 0227 (TORADOL) Diagnostic Agents Sig/Jan Start time Last Medication Dose Route Stop Time Status Admin Iopamidol 100 ML .STK-MED ONE 08/18 0341 DC 08/18 (ISOVUE-300 100ML) IV 08/18 0342 0341 Electrolytic, Caloric, And Daniel Sig/Jan Start [...] 22 GM NASAL 08/22 2101 0924 OINTMENT) Allergies:Coded Allergies:No Known Allergies (03/23/11) [...] moves all, right foot pain. dressing in place.Neuro/CONTRACT RUNNER: alert, oriented x 3, CNII-XII intact, normal [...] COMP THROAT 08/18 0203 Blood Culture - RECD BLOOD 08/18 0203 Blood Culture - RECD BLOOD Recent Impressions:RADIOLOGY [...] vs AKA). Will follow. at 1126 RPT #:[id number] OF REPORTTKMaqcpwktfafh7412-27-53I33:20:00G .WPFB76009048-7348THJetwjrjtn for patient xdahJCXLAZEWEHYGGN2788-40-40E14:27:12 [facility] 2022-08-18 10:23:00 [id number]/LlIWMyTHj2GXQGAz0E8z ePy GAQxtySpwEPT4bALtFBLnLLK5xEof8aGJ6430-44-61 T10:23:00 [facility] ([facility])Podiatry Consult NoteREPORT#:[id number] REPORT STATUS: SignedDATE:08/18/22 TIME: 1023 PATIENT: KARMA ROWLAND UNIT #: [id number]#: [id number] [address] AGE: 56 SEX: M ATTEND: Wilbert [...] patient n.p.o. Given the consultation at 1030 RPT #:[id number] OF REPORTNPKabohujcbeia8538-87-01D39:23:00G .MYRU49493065-4258RHEljdadybi for patient akyvGIQWYGAOPLQXPK2443-81-31F91:31:32 [facility] 2022-08-18 09:23:00 [id number]SJoX tvy YWuk+w05pS0X3R3NIZn0qSCZtT+8jES0Y1842-90-43 T09:23:00 [facility] ([facility])Hospitalist History PhysicalREPORT#:[id number] REPORT STATUS: SignedDATE:08/18/22 TIME: 922 PATIENT: KARMA ROWLAND UNIT #: [id number]#: [id number] [address] AGE: 56 SEX: M ATTEND: [...] resident, Good social support Medication/Allergy-Vaccine HxMedications:please see WALESKA'sAllergies:Coded Allergies:No Known Allergies (03/23/11) Review of SystemsAll systems rev neg: except as noted OBJECTIVEVS/I O:Vital Signs Date Temp Pulse Resp B/P B/P Mean Pulse Ox FiO2 08/18 97.8 85-97 16-28 90-112/51-59 65-80 97-100 Last Documented: Result Date Time Pulse Ox 98 08/18 529 B/P 107/58 08/18 529 B/P Mean 75 08/18 529 Pulse 85 08/18 529 Resp 16 08/18 05 O2 Delivery Room air 08/19 151 Temp 97.8 08/18 015 24 hour I O ending at 0700: [...] There were blisters with some blisters wereopen. Neuro/CONTRACT RUNNER: alert, oriented X 3, 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Skin: no [...] patient care (minutes): 60 at 0932 RPT #:[id number] OF REPORTHPHistory and physical asxguksrssv1642-47-18G15:23:00G.[id number] 7-0378AVAvailable for patient dqnxMQTDAAMLLLYRJS4314-70-98U34:34:48 [facility] 2022-08-18 06:03:00 [id number]o96/ oF3 gGlkW5NAPIks6chv4YqNF5sUvbywXmCxu1506-18-67 T06:03:00 [facility] ([facility])Pharmacy Prog.Note-VancomycinREPORT#:[id number] REPORT STATUS: SignedDATE:08/18/22 TIME: 0603 PATIENT: KARMA ROWLAND UNIT #: [id number]#: [id number] [facility] AGE: 56 SEX: M ATTEND: Wilbert Ramires MDADM AUTHOR: Beti [facility] * ALL edits or amendments must be made on the electronic/computer document * Vancomycin Vancomycin Medication TherapyGoal: trough 12-18 mcg/mLIndication for treatment:EmpiricDay of therapy:Day 1Weight: Actual weight (kg): 77.7 (STATED/REPORTED)VS and I/O:Vital Signs Date Temp Pulse Resp B/P B/P Mean Pulse Ox FiO2 08/18 97.8 85-97 16-28 90-112/51-59 65-80 97-100 72 hours ending at 0700 08/18 0700 08/17 1900 08/17 0708/16 1900 08/16 08/15 07 1900IntakeTotalOutputTotalBalance Patient 77.7 kgWeightWeight Stated/Rep ortedMeasurementMethod 72 Hour I O Total 08/18 0708/16 07 Intake Total Output Total Balance Labs:Laboratory Test [...] findings otherwise.Impression By: Ankur - Jay Ladd M.D. Drug admin history:Medication(s) Ordered:Anti-Infective Agents [...] MD, for this consult. at 0704 RPT #:[id number] OF REPORTPRProgress zumj1343-27-78S58:03:00G.LAAT10553059-4531F VAvailable for patient fycoAVJRDRLRQXLCAM4804-69-67B74:04:26 [facility] 2022-08-18 05:37:00 [id number]H5u0 TyJ 6+AujQ3lk/4z6+/JIrvbHUDLM6L4L715v1768-83-91 T05:37:00 [facility] ([facility])Critical Care Consult NoteREPORT#:[id number] REPORT STATUS: SignedDATE:08/18/22 TIME: 0537 PATIENT: KARMA ROWLAND UNIT #: [id number]#: [id number] [address] AGE: 56 SEX: M ATTEND: Wilbert Ramires [facility] AUTHOR: Andrew London MD * ALL edits [...] time spent on procedures. at 0703 RPT #:[id number] OF REPORTWCOeakmfeptovz0361-49-44L72:37:00G .WUXZ95773769-9327HQWeymkohfd for patient temzGFSNLQBNJAIJKL8465-83-08P54:04:03 [facility] 2022-08-18 05:14:00 [id number]q/ T7v WKGjS8uKZfkT68XsalzNPo2kkt9zrLgvC4686-58-50 T05:14:00 [facility] PROVID[facility] REPORTREPORT#:[id number] REPORT STATUS: SignedDATE:08/18/22 TIME: 0514 PATIENT: KARMA ROWLAND UNIT #: [id number]#: [id number] [address] 56 SEX: M PCP PHYS: No Primary [...] 08/18 0152 O2 Delivery Room air 08/18 015 Temp 36.6 08/18 0152 Pulse 97 08/18 0152 Resp 18 08/18 0152 Last Documented: Result Date Time Pulse Ox 99 08/18 0500 B/P 99/59 08/18 0500 B/P Mean 73 08/18 0500 Pulse 86 08/18 0500 Resp 21 08/18 0500 O2 Delivery Room air 08/18 015 Temp 36.6 08/18 0152 Review of Vital Signs Reviewed, Vital signs [...] findings otherwise.Impression By: Ankur - Jay Ladd M.D. Lab Imaging StatementLaboratory radiographic studies [...] 08/18 0150 DC 08/18 Tromethamine IV 08/18 0151 0227 Diagnostic Agents Sig/Jan Start time Last Medication Dose Route Stop Time Status Admin Iopamidol 100 ML .STK-MED ONE 08/18 0341 DC 08/18 IV 08/18 0342 0341 Electrolytic, Caloric, And Daniel Sig/Jan Start [...] drip and IV sodium bicarb. at 2233RPT #:[id number] OF REPORTChildren[facility] department zierwd9240-45-22P10:14:00G.XBGS25619564-772 4AVAvailable for patient qspuJGFMPJFXRNNYGH4018-88-69K94:33:38 [facility]
[2023-10-03 11:37] LABS: Absolute Basophils 0.1 K/uL (0-0.5); Absolute Eosinophils 0.9 K/uL (0-0.5); Absolute Lymphocytes (CBC) 1.7 K/uL (0.7-4.9); Absolute Monocytes 0.4 K/uL (0.1-1.3); Absolute Neutrophil 4.5 K/uL (1.8-8.0); Basophils % 0.8 % (0-1.3); Eosinophils % 12.2 % (0-4.4); Hematocrit 31.6 % (39.6-49.0); Hemoglobin 10.5 g/dL (13.6-17.9); Lymphocytes % 22.5 % (15.3-44.8); MCH 29.1 pg (27.0-35.0); MCHC 33.2 g/dL (32.0-36.0); MCV 87.8 fL (80-100); MPV 8.6 fL (7.6-11.3); Monocytes % 4.8 % (3.3-12.3); Neutrophils % 59.7 % (41.7-73.7); Platelets 221 thou/uL (152-406); Red Cell Distribution Width 13.7 % (12.1-15.2)
[2023-10-03 11:57] LABS: Anion Gap 9.3 mEq/L (5.0-15.0); Potassium 5.3 mEq/L (3.5-5.1); Troponin High Sensitivity 9.6 pg/mL (<58.9)
[2023-10-03] MEDS ORDERED: NA CHLORIDE 0.9% 1,000 ML ONE ×2 (11:58→14:29)
[2023-10-03 14:05] LABS: Anion Gap 8.6 mEq/L (5.0-15.0); Potassium 5.6 mEq/L (3.5-5.1)
[2023-10-03] MEDS ORDERED: FUROSEMIDE 20 MG/ 2ML VIAL ONE (14:29)
[2023-10-03 16:22] LABS: Anion Gap 7.8 mEq/L (5.0-15.0); Potassium 4.8 mEq/L (3.5-5.1)
--- NOTE | 2023-10-03 16:38 | EDPHYS ---
Physician Documentation [facility] Name: Delroy Quintero Age: 57 yrs Sex: Male : 1965 Arrival Date: 10/03/2023 Time: 10:54 Bed 16 Private MD: ED Physician Cezar Sheppard HPI: 10/02 11:34 This 57 yrs old Male presents to ER via Ambulatory with complaints of Abnormal ec2 Lab Results. 11:34 Patient arrives today for evaluation of hyperkalemia. Patient reportedly had outpatient ec2 labs and was told they were elevated and told to come to the ED to be evaluated. Patient reports no specific kidney disease, no issues with previous hyperkalemia. He denies any other concerns.. Historical: - PMHx: 11:20 ERIKA; Anemia; diabetes mellitus; Hypertensive disorder; hb - PSHx: 11:20 R BKA; hb - Immunization history:: Adult Immunizations up to date. - Infectious Disease History:: Denies. - Social history:: Smoking status: Patient denies any tobacco usage or history of. ROS: 11:34 Constitutional: as per hpi ec2 Exam: 11:34 Constitutional: GEN: NAD Head: atraumatic Eyes: EOMI Ears: External ears are ec2 normal. CV: regular rate LUNGS: no respiratory distress ABD: non-distended SKIN: no evidence of rashes MSK: no evidence of trauma NEURO: moves all extremities equally Vital Signs: 11:19 BP 179 / 91; Pulse 88; Resp 14; Temp 97.7(TE); Pulse Ox 100% on R/A; Weight 77.11 kg; hb Height 5 ft. 6 in. ; Pain 0/10; 12:51 BP 176 / 90; Pulse 84; Resp 18; Pulse Ox 100% on R/A; mb9 14:00 BP 183 / 86; Pulse 85; Resp 16; Pulse Ox 99% on R/A; mb9 16:28 BP 170 / 88; Pulse 78; Resp 18; Pulse Ox 100% on R/A; mb9 11:19 Body Mass Index 27.44 (77.11 kg, 167.64 cm) hb 11:19 Pain Scale: Adult hb MDM: 11:11 Patient medically screened. ec2 11:34 Data reviewed: vital signs. ED course: Patient arrives today for evaluation of ec2 hyperkalemia. Examination remarkable for well-appearing nontoxic vigorous otherwise in no acute distress. Will obtain lab work, EKG and give the patient crystalloid. Evaluate for hyperkalemia, renal dysfunction. Additionally considering hemolysis.. 11:51 ED course: CBC shows slight anemia. Patient with history of anemia . ec2 12:10 ED course: Metabolic profile shows renal dysfunction with a creatinine of 1.71 and a ec2 GFR 46, slight hyperkalemia with a potassium of 5.3. Will finish crystalloid administration, obtain repeat BMP after crystalloid infusion is complete. . 12:32 ED course: EKG independently reviewed and interpreted by me, shows normal sinus rhythm, ec2 rate of 83, no acute ST segment elevations, intervals nonconcerning, no sequela of hyperkalemia noted.. 14:38 ED course: Repeat potassium slightly higher at 5.6. I discussed possible observation, ec2 will attempt to diurese the patient with crystalloid and give the patient Lasix and obtain a repeat metabolic profile ultimately patient may still require observation/admission however I do feel it be warranted to attempt discharge home.. 16:37 ED course: Repeat metabolic profile with a potassium of 4.8, patient remains ec2 asymptomatic. Will discharge home, have him follow-up with primary care doctor. Return precautions given . 10/02 11:24 Order name: Basic Metabolic Panel; Complete Time: 12:09 ec2 10/02 11:24 Order name: CBC with Diff; Complete Time: 11:51 ec2 10/02 11:24 Order name: Troponin HS; Complete Time: 12:09 ec2 10/02 13:01 Order name: BMP; Complete Time: 14:07 mb9 10/02 15:29 Order name: BMP; Complete Time: 16:37 mb9 10/02 11:24 Order name: EKG; Complete Time: 11:24 ec2 10/02 11:24 Order name: Cardiac monitoring; Complete Time: 12: ec2 10/02 11:24 Order name: EKG - Nurse/Tech; Complete Time: 12:07 ec2 10/02 11:24 Order name: IV Saline Lock; Complete Time: 12:07 ec2 10/02 11:24 Order name: Labs collected and sent; Complete Time: 12: 2 10/02 11:24 Order name: O2 Per Protocol; Complete Time: 12:07 ec2 10/02 11:24 Order name: O2 Sat Monitoring; Complete Time: 12:07 ec2 10/02 12:32 Order name: Misc. Order: repeat bmp after finish fluids; Complete Time: 13:36 ec2 Administered Medications: 12:07 Drug: NS 0.9% IV 1000 ml IV at 1 bolus Per protocol; 1000 mL bolus Route: IV; Rate: 1 mb9 bolus; Site: left antecubital; 13:36 Follow up: Response: No adverse reaction; IV Status: Completed infusion mb9 14:32 Drug: NS 0.9% IV 1000 ml IV at 1 bolus Per protocol; 1000 mL bolus Route: IV; Rate: 1 mb9 bolus; Site: left antecubital; 16:27 Follow up: Response: No adverse reaction; IV Status: Completed infusion mb9 14:33 Drug: Furosemide IVP 20 mg IVP once; give over 2 minutes Route: IVP; Site: left mb9 antecubital; 15:28 Follow up: Response: No adverse reaction mb9 Disposition Summary: 10/03/23 16:38 Discharge Ordered Notes: Location: Home ec2 Condition: Stable ec2 Diagnosis - Hyperkalemia ec2 Followup: ec2 - With: Private Physician - When: - Reason: Re-evaluation by your physician Discharge Instructions: - Discharge Summary Sheet ec2 - Hyperkalemia, Vxmr-pp-Njdo ec2 Forms: - Medication Reconciliation Form ec2 - Antibiotic Education ec2 - Prescription Opioid Use ec2 - Patient Portal Instructions ec2 - Leadership Thank You Letter ec2 Signatures: Dispatcher [employer] EDSuki Lemon RN RN Whit Byers RN RN mb9 Cezar Sheppard MD MD ec2 Corrections: (The following items were deleted from the chart) 11:25 11:24 BASIC METABOLIC PANEL+C.LAB.BRZ ordered. EDMS EDMS 11: 11:24 CBC+H.LAB.BRZ ordered. EDMS EDMS : 11:24 Troponin High Sensitivity+C.LAB.BRZ ordered. EDMS EDMS
--- NOTE | 2023-10-03 16:38 | ER ---
Nurse's Notes [facility] Name: Delroy Quintero Age: 57 yrs Sex: Male : 1965 Arrival Date: 10/03/2023 Time: 10:54 Bed 16 Private MD: Diagnosis: Hyperkalemia Presentation: 10/02 11:19 Chief complaint: Dr. Sent for potassium 5.8. Coronavirus screen: At this time, the hb client does not indicate any symptoms associated with coronavirus-19. Ebola Screen: No symptoms or risks identified at this time. Initial Sepsis Screen: Does the patient meet any 2 criteria? No. Patient's initial sepsis screen is negative. Does the patient have a suspected source of infection? No. Patient's initial sepsis screen is negative. Risk Assessment: Do you want to hurt yourself or someone else? Patient reports no desire to harm self or others. Onset of symptoms was October 03, 2023. 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 - Infectious Disease History:: Denies. - Social history:: Smoking status: Patient denies any tobacco usage or history of. Screenin:51 [facility] ED Fall Risk Assessment (Adult) History of falling in the last 3 months, mb9 including since admission No falls in past 3 months (0 pts) Confusion or Disorientation No (0 pts) Intoxicated or Sedated No (0 pts) Impaired Gait No (0 pts) Mobility Assist Device Used No (0 pt) Altered Elimination No (0 pt) Score/Fall Risk Level 0 - 2 = Low Risk Oriented to surroundings, Maintained a safe environment, Educated pt \T\ family on fall prevention, incl call for assistance when getting out of bed, Assessed \T\ reinforced patient's understanding of fall precautions, Provided non-skid footwear. Abuse screen: Denies threats or abuse. Nutritional screening: No deficits noted. Tuberculosis screening: No symptoms or risk factors identified. Assessment: 12:50 General: Appears in no apparent distress. Behavior is calm, cooperative. Pain: Denies mb9 pain. Neuro: Mejia Agitation-Sedation Scale (RASS): 0 - Alert and Calm Level of Consciousness is awake, alert, obeys commands, Oriented to person, place, time, situation, Appropriate for age. Cardiovascular: Heart tones S1 S2 present Patient's skin is warm and dry. Respiratory: Airway is patent Respiratory effort is even, unlabored, Respiratory pattern is regular, symmetrical. GI: No signs and/or symptoms were reported involving the gastrointestinal system. : No signs and/or symptoms were reported regarding the genitourinary system. EENT: No signs and/or symptoms were reported regarding the EENT system. Derm: Skin is pink, warm \T\ dry. Musculoskeletal: Range of motion: intact in all extremities. 14:00 Reassessment: No changes from previously documented assessment. Patient and/or family mb9 updated on plan of care and expected duration. Pain level reassessed. Patient is alert, oriented x 3, equal unlabored respirations, skin warm/dry/pink. 15:00 Reassessment: No changes from previously documented assessment. Patient and/or family mb9 updated on plan of care and expected duration. Pain level reassessed. Patient is alert, oriented x 3, equal unlabored respirations, skin warm/dry/pink. 16:00 Reassessment: Patient appears in no apparent distress at this time. No changes from mb9 previously documented assessment. Patient and/or family updated on plan of care and expected duration. Pain level reassessed. Patient is alert, oriented x 3, equal unlabored respirations, skin warm/dry/pink. Vital Signs: 11:19 BP 179 / 91; Pulse 88; Resp 14; Temp 97.7(TE); Pulse Ox 100% on R/A; Weight 77.11 kg; hb Height 5 ft. 6 in. ; Pain 0/10; 12:51 BP 176 / 90; Pulse 84; Resp 18; Pulse Ox 100% on R/A; mb9 14:00 BP 183 / 86; Pulse 85; Resp 16; Pulse Ox 99% on R/A; mb9 16:28 BP 170 / 88; Pulse 78; Resp 18; Pulse Ox 100% on R/A; mb9 11:19 Body Mass Index 27.44 (77.11 kg, 167.64 cm) hb 11:19 Pain Scale: Adult hb ED Course: 10:57 Patient arrived in ED. mg5 10:58 Sheppard, Cezar, MD is Attending Physician. ec2 11:20 Triage completed. hb 12:00 EKG done, by ED staff, reviewed by Cezar Sheppard MD. mb9 12:06 Whit Byers RN is Primary Nurse. mb9 12:07 Arm band placed on. mb9 12:07 Initial lab(s) drawn, by tn, sent to lab. Inserted saline lock: 20 gauge in left mb9 antecubital area, using aseptic technique. Blood collected. 12:51 Placed in gown. Bed in low position. Call light in reach. Side rails up X 1. Provided mb9 Education on: press call light if needing anything. Client placed on continuous cardiac and pulse oximetry monitoring. NIBP monitoring applied. enginehouse brakeman on. 13:41 BMP Sent. mb9 16:44 No provider procedures requiring assistance completed. IV discontinued, intact, mb9 bleeding controlled, No redness/swelling at site. Pressure dressing applied. Administered Medications: 12:07 Drug: NS 0.9% IV 1000 ml IV at 1 bolus Per protocol; 1000 mL bolus Route: IV; Rate: 1 mb9 bolus; Site: left antecubital; 13:36 Follow up: Response: No adverse reaction; IV Status: Completed infusion mb9 14:32 Drug: NS 0.9% IV 1000 ml IV at 1 bolus Per protocol; 1000 mL bolus Route: IV; Rate: 1 mb9 bolus; Site: left antecubital; 16:27 Follow up: Response: No adverse reaction; IV Status: Completed infusion mb9 14:33 Drug: Furosemide IVP 20 mg IVP once; give over 2 minutes Route: IVP; Site: left mb9 antecubital; 15:28 Follow up: Response: No adverse reaction mb9 Medication: 12:51 VIS not applicable for this client. mb9 Outcome: 16:38 Discharge ordered by . ec2 16:44 Discharged to home ambulatory, with family, mb9 16:44 Condition: stable 16:44 Discharge instructions given to patient, family, Instructed on discharge instructions, follow up and referral plans. Demonstrated understanding of instructions, follow-up care, 16:44 Patient left the ED. mb9 Signatures: Suki Ga RN RN Whit Byers RN RN mb9 Tiff Lentz mg5 Sheppard, Cezar, MD MD ec2
[2023-10-03 17:06] VITALS: BP 170/88; TEMP 97.7; O2SAT 100
--- NOTE | 2023-10-05 13:23 | EKG ---
Test Date: 2023-10-03 Test Time: 12:18:30 Administration Vice President: AMBER MEASUREMENT RESULTS: Intervals: Rate: 83 VT: 174 QRSD: 98 QT: 378 QTc: 444 Dieterich: P: 67 VT: 174 QRS: 67 T: 53 INTERPRETIVE STATEMENTS: Normal sinus rhythm Normal ECG Compared to ECG 10/25/2022 17:10:15 Myocardial infarct finding no longer present Electronically Signed On 10-05-23 13:18:02 CDT by Peter Mera
== END 2023-10-03 16:44 | disposition home or self-care (01) ==
LOC: ER 10:54
DX: E87.5 Hyperkalemia (principal); Z89.511 Acquired absence of right leg below knee
CPT/HCPCS: 96361; 93005; 85025; 80048 ×3; 36415; 84484; 96374; 99285; J1940; J7030 ×2

== ENCOUNTER 2023-11-12 09:40 | Day surgery (SDC) | payer OTHER ==
[2023-11-11 11:02] LABS: Absolute Basophils 0.1 K/uL (0-0.5); Absolute Eosinophils 0.9 K/uL (0-0.5); Absolute Lymphocytes (CBC) 1.5 K/uL (0.7-4.9); Absolute Monocytes 0.4 K/uL (0.1-1.3); Absolute Neutrophil 5.3 K/uL (1.8-8.0); Basophils % 0.8 % (0-1.3); Eosinophils % 11.2 % (0-4.4); Hematocrit 30.5 % (39.6-49.0); Hemoglobin 10.2 g/dL (13.6-17.9); Lymphocytes % 18.5 % (15.3-44.8); MCH 29.7 pg (27.0-35.0); MCHC 33.4 g/dL (32.0-36.0); MCV 88.9 fL (80-100); MPV 9.4 fL (7.6-11.3); Monocytes % 4.9 % (3.3-12.3); Neutrophils % 64.6 % (41.7-73.7); Platelets 224 thou/uL (152-406); RBC Red Blood Cell Count 3.43 M/uL (4.33-5.43)
[2023-11-11 11:13] LABS: Anion Gap 8.2 mEq/L (5.0-15.0); Potassium 5.2 mEq/L (3.5-5.1)
[2023-11-12] MEDS: NA CHLORIDE 0.9% 1,000 ML ONE (10:05)
[2023-11-12] MEDS ORDERED: LIDOCAINE 1% MPF 5 ML VIAL ONE (14:00)
[2023-11-12] MEDS ORDERED: FENTANYL CITR 100 MCG/2 ML ONE (14:01)
[2023-11-12] MEDS ORDERED: MIDAZOLAM HCL 2 MG/2 ML INJ ONE (14:01)
[2023-11-12] MEDS ORDERED: propofoL 200 MG/20 ML VIAL IV ONE (14:01)
[2023-11-12] MEDS: CEFAZOLIN SODIUM 2 GM/VIAL ONE (14:14)
[2023-11-12] MEDS ORDERED: EPHEDRINE SULF 50 MG/ML VIAL ONE (14:40)
--- NOTE | 2023-11-12 15:46 | P.OP ---
Preoperative diagnosis: RIGHT Leg Infected BKA Postoperative diagnosis: RIGHT Leg Infected BKA Primary procedure: Revision of RIGHT Leg BKA Anesthesia: GETA Estimated blood loss: <30cc Specimen: Cultures, Debridement Tissue, Bone from Tibia Findings: infected sutures adjacent to tibia Complications: None Implants: Bone Wax Transferred to: Recovery Room () Condition: Good
[2023-11-12 17:38] VITALS: BP 162/62; TEMP 97.1; O2SAT 98
--- NOTE | 2023-11-13 02:17 | OP ---
Date of Procedure: 11/12/2023 Surgeon: Beau Hazel MD, Preoperative Diagnosis: Right leg infected [id number]-ody-[id number] amputation. Postoperative Diagnosis: Right leg infected [id number]-[id number]-[id number] amputation. Procedure: Revision of the right leg aktiv-pey-qszv amputation site. Anesthesia: General endotracheal. Estimated Blood Loss: Less than 30 cc. Specimen: Culture sent both aerobic and anaerobic speciation, debridement tissue and bones from tibi a. Findings: Infected tract leading from skin with abscess cavity adjacent to tibia on midportion with adjacent infected stitch-abscess appearing material. There were multiple Ethibonds in the region con sistent with stitch abscesses. Complications: None. Implants: Bone wax. Disposition: The patient was transferred to recovery room in good condition. Procedure In Detail: After informed consent was obtained, patient was brought to the operating room, prepped and draped in the usual sterile fashion. After adequate anesthesia achieved, I made an alicia ptical incision circumferentially around the previous incision on the right zstvm-vbw-pzpc amputation site using a 15 blade, ultimately dissecting down to find an abscess cavity. This was cultured for both aerobic and anaerobic speciation at this point. The ellipse of tissue was taken off at this poi nt and sent off for pathologic examination. I then continued the dissection down to expose multiple large what appeared to be 0 Ethibond sutures. There were several of them tied in this region right a djacent to the tibia on the midportion of the tibia. There was a what appeared to be abscess cavity surrounding this particular area. I circumferentially dissected out this area and removed all foreig n body material including all the Ethibond sutures and cleared all nonviable or infected appearing ti ssue. I went adjacent to the tibia where there appeared to be some abnormal cortical irregularity co nsistent with possible infection in this area. As such, I peeled back all of the adjacent tissue usi ng elevator and sharp dissection as well as blunt dissection to allow for approximately 0.5 to 0.75 c m segment of the tibia to be transected. At this point, I used a bone saw to transect this portion o f the abnormal appearing tibia and smoothed that out using a rasp circumferentially around to bevel t he edges of the tissue. Small bone spicule was removed using a rongeur. After this was performed, t he area was smoothed out so no spiculated tissue was appreciated and the bone was beveled nicely circ umferentially around at this point using a rasp. At this point, the area was copiously irrigated mul tiple times and completely dried. There was some bleeding from the bone, which pressure was held for several minutes, but continued to ooze. At this point, I applied bone wax and continued to cleanse out the area while the bone wax was kept in place on the tibia, circumferentially around cleaned the area several times to completely dry. Minimal hemostat was required at this point. I then removed t he bone wax after approximately 3 minutes of apposition of this area and the majority of the bone wax was removed at this point without any additional hemostatic was required and no additional bone wax was applied at this point with good hemostasis at the bone level at this point through the marrow cav ity. At this point, I irrigated the area once again and then closed the tissue overlying the tibia t o allow for reapproximation of the fascial planes and gastroc flaps over the tibia to protect this ar ea, although scar tissue was significantly making exact identification of anatomic structu res difficult. I did close thick fascial tissue over the tibia, which appeared to be good, pink, and viable at this point. I then closed the second layer over the top of this using an interrupted 2-0 Vicryl sutures. Only Vicryl sutures were used at this point which were 2-0 in size. After this was completed, I then irrigated the area once again and reapproximated a T'ed out aspect of the incision with 2 interrupted 2-0 nylon sutures and the wound remained open at this point. I then irrigated the area once again and packed the wound with Vashe-soaked Kerlix and a sterile dressing placed over top . The patient tolerated the procedure well without incident or complications, transferred back in good condition. All counts were correct at the end of the case. TK/MODL Voice ID: [id number] Report ID: [id number]
== END 2023-11-12 17:26 | disposition home or self-care (01) ==
LOC: OR 09:40
PROVIDERS: ATTEND Surgery
PROC: 0Y6H0Z3 Detachment at Right Lower Leg, Low, Open Approach (ICD-10-PCS; principal; 2023-11-12 12:45)
DX: T87.43 Infection of amputation stump, right lower extremity (principal); T87.9 Unspecified complications of amputation stump; M86.8X6 Other osteomyelitis, lower leg
CPT/HCPCS: 36415; 80048; 82947; 85025; 86850; 86900; 86901; 87070; 87075; 87205; 88304; J2001; J2250; J2704; J3010; J7030

== ENCOUNTER 2025-01-07 19:22 | Inpatient (IN) | payer OTHER ==
--- OUTSIDE RECORDS SUMMARY | 2025-01-07 19:50 | XMS REPORT | Continuity of Care Document ---
Author Name Unknown Address [address] [facility] [address] [place] [address] [facility] [place] Address [address] [facility] [address] [place] [address] Care Team Providers Care Seed [facility] Laboratory Assistant Name Role Phone LAKESHIA ERNST Attending Clinician Unavailable HARPAL ARANDA Attending Clinician Unavailabl e LAB90 Attending Clinician Unavailable [id number] Attending Clinician Unavailable LUCRECIA ONTIVEROS Attending Clinician UnaCHARLES Ni Attending Clinician Unavailable KENY BAJWA Attending Clinician Unavail able KARMA HAZEL Attending Clinician Unavailable CEZAR LE Attending Clinician Unavailable LYNDSEY NOVAK Attending Clinician [...] Number Effective Date Expirati on Date Source [place] [address] [employer] 94 [phone] [id number] 2024 00:00:00 Problems Condition Name Condition Details Condition Category Status Onset Date Resolution Date Last Treatment Date Treating Clinician Comments Source 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 (multi HCC) 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 (multi HCC) Disease Active 12-14 00:00: 00 Nikia Liang - Externa gloria Type 2 diabetes mellitus with diabetic peripheral angiopathy and gangrene, with long-term current use of insulin (multi HCC) Type 2 diabetes mellitus with diabetic peripheral angiopathy and gangrene, with long-term current use of insulin (multi HCC) Disease Active 09-28 00:00: 00 Nikia Hankins Externa gloria CKD (chronic kidney disease) stage 4, GFR 15-29 ml/min (multi HCC) CKD (chronic kidney disease) stage 4, GFR 15-29 ml/min (multi HCC) Disease Active 09-28 00:00: 00 Nikia Liang - Externa gloria Type 2 diabetes mellitus with stage 3a chronic kidney disease, with long-term current use of insulin (multi HCC) Type 2 diabetes mellitus with stage 3a chronic kidney disease, with long-term current use of insulin (multi HCC) Disease Active 09-28 00:00: 00 Nikia Liang - Externa gloria Immunodefi ciency due to DM (multi HCC) Immunodefi ciency due to DM (multi HCC) Disease Active 2022-05- 00:00: 00 Nikia Liang - Externa gloria Well adult exam Well adult exam Disease [...] l Type 2 diabetes mellitus with hyperglyce renetta, with long-term current use of insulin (multi HCC) Type 2 diabetes mellitus with hyperglyce renetta, with long-term current use of insulin (multi HCC) Disease Active 2022-05 00:00: 00 Nikia Changold - Externa l 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 (multi HCC) 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 (multi HCC) Disease Active 2022-05 00:00: 00 Nikia Liang - Externa gloria Type 2 diabetes mellitus with hyperglyce renetta, with long-term current use of insulin (multi HCC) Type 2 diabetes mellitus with hyperglyce renetta, with long-term current use of insulin (multi [...] dism Disease Active 02-17 00:00: 00 Nikia Liang - Externa l Elevated liver function tests Elevated liver function tests Disease Active 02-17 00:00: 00 Nikia Liang - Externa l Unspecifie d diastolic (congestiv e) heart failure (multi HCC) Unspecifie d diastolic (congestiv e) heart failure (multi HCC) Disease Active 10-15 00:00: 00 Nikia Liang - Externa l Allergies, Adverse Reactions, Alerts Allergy Name Allergy Type Status Severity Reaction(s) Onset Date Inactive Date Treating Clinician Comments Source No Known Allergie s DA Active U 2010-05 00:00: 00 [facility] Social History Social Habit Start Date Stop Date Quantity Comments Source Gender identity Genesis Liang - External Sexual orientation Adonis Liang - External History of tobacco use Cigarette Smoker Nikia rivera - External Alcoholic beverage intake 2024-09-30 00:00:00 2024-09-30 00:00:00 Ex-drinker (finding) Nikia Liang - External Alcohol intake 2023-03-20 00:00:00 2023-03-20 00:00:00 Ex-drinker (finding) Nikia Liang - External History of Social function 2023-02-09 00:00:00 2023-02-09 00:00:00 Nikia Liang - External Tobacco use and exposure 2022-10-16 00:00:00 2022-10-16 00:00:00 Smokeless tobacco non-user Nikia Liang - External Sex 2022-05-22 15:51:50 2022-05-22 15:51:50 Male (finding) Nikia Azul - External Sex [birth year] at 1965 00:00:00 1965 00:00:00 Nikia Liang - External Smoking Status Start Date Stop Date Source Ex-smoker 2022-10-16 00:00:00 2022-10-16 00:00:00 Adonis james Azul - External Medications Ordered Medication Name Filled Medication Name Start Date Stop Date Current Medication? Ordering Clinician Indication Dosage Frequency Signature (SIG) Comments Components Source Empaglifloz in (Jardiance) 10 MG oral Tablet 09-30 00:00: 00 Yes [id number] 10mg QD Take 1 tablet (10 mg total) by mouth daily. Nikia castro Cholecalcif caro (Vitamin D) 25 MCG (1000 UT) oral Tablet 09-30 00:00: 00 Yes [id number] 25U QD Take 25 units by mouth daily. Nikia castro Multiple Vitamins-Ir on (Multivitam in Plus Iron Adult) oral Tablet 03 00:00: 00 Yes [id number] 1{tbl} QD Take 1 tablet by mouth daily. Nikia castro Insulin Glargine (Basaglar KwikPen) 100 UNIT/ML subcutaneou s Solution Pen-injecto r 06-24 00:00: 00 Yes [id number] 5U QD Inject 5 units into the skin daily (with breakfast) . Nikia castro Insulin Glargine (Lantus SoloStar) 100 UNIT/ML subcutaneou s Solution Pen-injecto r 06-23 00:00: 00 Yes [id number] 5U Inject 5 units into the skin at bedtime. Nikia castro Ferrous Sulfate (Iron) 325 (65 Fe) MG oral Tablet 06-23 00:00: 00 Yes [id number] 325mg QD Take 1 tablet (325 mg total) by mouth daily (with breakfast) . Nikia castro Gabapentin 100 MG oral Capsule 06-23 00:00: 00 Yes [id number] 100mg Q.5D Take 1 capsule (100 mg total) by mouth 2 times daily. Nikia castro Losartan Potassium (COZAAR) 50 MG oral Tablet 06-23 00:00: 00 Yes [id number] 50mg QD Take 1 tablet (50 mg total) by mouth daily. Nikia castro Amitriptyli ne HCl 25 MG oral Tablet 06-23 00:00: 00 Yes [id number] 25mg Take 1 tablet (25 mg total) by mouth at bedtime. Nikia castro Rosuvastati n Calcium 5 MG oral Tablet 06-23 00:00: 00 Yes [id number] 3 5mg QD Take 1 tablet (5 mg total) by mouth nightly. Nikia castro Amitriptyli ne HCl 25 MG oral Tablet 2023-05 024 00:00: 00 06-23 00:00 :00 No [id number] 25mg take 1 tablet by mouth everyday at bedtime Nikia castro Losartan Potassium (COZAAR) 50 MG oral Tablet 2023-05 0-17 00:00: 00 06-23 00:00 :00 No [id number] 50mg QD Take 1 tablet (50 mg total) by mouth daily. Nikia castro Clonidine HCl (CATAPRES) 0.1 MG oral Tablet 905 00:00: 00 06-23 00:00 :00 No [id number] .1mg Q.5D take 1 tablet by mouth 2 times daily. Nikia castro Insulin Glargine (Lantus SoloStar) 100 UNIT/ML subcutaneou s Solution Pen-injecto r 12-14 00:00: 00 06-23 00:00 :00 No [id number] 9109 5U Inject 5 units into the skin at bedtime. Nikia castro Ferrous Sulfate (Iron) 325 (65 Fe) MG oral Tablet 12-14 00:00: 00 06-23 00:00 :00 No [id number] 325mg QD Take 1 tablet (325 mg total) by mouth daily (with breakfast) . Nikia castro Amitriptyli ne HCl 25 MG oral Tablet 11-18 00:00: 00 Yes [id number] 25mg TAKE 1 TABLET BY MOUTH EVERYDAY AT BEDTIME Nikia castro Gabapentin 100 MG oral Capsule 11-02 00:00: 00 06-23 00:00 :00 No [id number] 100mg Q.[id number] 3D Take 1 capsule (100 mg total) by mouth 3 times daily. Nikia castro Clonidine HCl (CATAPRES) 0.1 MG oral Tablet 10-20 00:00: 00 Yes [id number] .1mg Q.5D Take 1 tablet (0.1 mg total) by mouth 2 times daily. Nikia castro hydrALAZINE HCl 100 MG oral Tablet 10-20 00:00: 00 06-23 00:00 :00 No [id number] 100mg Q.[id number] 3D Take 1 tablet (100 mg total) by mouth 3 times daily. Nikia castro Amitriptyli ne HCl 25 MG oral Tablet 2022-05 00:00: 00 Yes [id number] 25mg Take 1 tablet (25 mg total) by mouth at bedtime. Nikia castro hydrALAZINE HCl 100 MG oral Tablet 2022-05 00:00: 00 Yes [id number] 100mg Take 1 tablet (100 mg total) by mouth 3 times daily. Nikia castro Clonidine HCl (CATAPRES) 0.1 MG oral Tablet 2022-05 00:00: 00 Yes [id number] .1mg Take 1 tablet (0.1 mg total) by mouth 2 times daily. Nikia castro Insulin Glargine (Lantus SoloStar) 100 UNIT/ML subcutaneou s Solution Pen-injecto r 2022-05 00:00: 00 12-14 00:00 :00 No [id number] 15U Inject 15 units into the skin at bedtime. Nikia castro Potassium Chloride CR 10 MEQ oral Cap CR 2022-05 00:00: 00 03-20 00:00 :00 No Nikia castro Insulin Aspart (NovoLOG FlexPen) 100 UNIT/ML subcutaneou s Solution Pen-injecto r 2022-05 00:00: 00 12-14 00:00 :00 No [id number] 10 units sc three times a day with every meal. Hold If blood sugar is less than 100. Nikia castro Gabapentin 100 MG oral Capsule 02-18 00:00: 00 Yes [id number] 100mg Take 1 capsule (100 mg total) by mouth 3 times daily. Nikia castro Furosemide (LASIX) 20 MG oral Tablet 02-18 00:00: 00 Yes 20mg Take 1 tablet (20 mg total) by mouth 2 times daily. Nikia castro Insulin Glargine (Lantus SoloStar) 100 UNIT/ML subcutaneou s Solution Pen-injecto r 02-18 00:00: 00 Yes [id number] 23U Inject 23 units into the skin at bedtime. Nikia castro Labetalol HCl 200 MG oral Tablet 02-18 00:00: 00 12-14 00:00 :00 No 200mg Q.[id number] 3D Take 1 tablet (200 mg total) by mouth 3 times daily. Nikia castro Losartan Potassium (COZAAR) 50 MG oral Tablet 02-17 00:00: 00 Yes 50mg QD Take 1 tablet (50 mg total) by mouth daily. Nikia castro Mupirocin (BACTROBAN) 2 % apply externally Ointment 02-17 00:00: 00 Yes [id number] Q.5D Apply 1 applicatio n. topically 2 times daily. Nikia castro Amoxicillin -Pot Clavulanate 500-125 MG oral Tablet 10-21 00:00: 00 Yes [id number] 1{tbl} Take 1 tablet by mouth 2 times daily Nikia castro Amitriptyli ne HCl 25 MG oral Tablet 10-17 00:00: 00 Yes [id number] 25mg Take 1 tablet (25 mg total) by mouth at bedtime Nikia castro Clonidine HCl (CATAPRES) 0.1 MG oral Tablet 10-17 00:00: 00 Yes [id number] .1mg Take 1 tablet (0.1 mg total) by mouth 2 times daily Nikia castro hydrALAZINE HCl 100 MG oral Tablet 10-17 00:00: 00 Yes [id number] 100mg Take 1 tablet (100 mg total) by mouth 3 times daily Nikia castro Sodium Bicarbonate 650 MG oral Tablet 10-17 00:00: 00 Yes [id number] 650mg Take 1 tablet (650 mg total) by mouth 2 times daily Nikia castro Gabapentin 100 MG oral Capsule 10-17 00:00: 00 Yes [id number] 100mg Take 1 capsule (100 mg total) by mouth every 8 hours Nikia castro Furosemide (LASIX) 20 MG oral Tablet 10-17 00:00: 00 Yes [id number] 20mg Take 1 tablet (20 mg total) [...] Value Comments S ource Systolic blood pressure 2024-09-30 14:11:00 131 mm[Hg] Nikia Seybold - External Diastolic blood pressure 2024-09-30 14:11:00 74 mm[Hg] Nikia Seybold - External Heart rate 2024-09-30 14:09:00 80 /min Nikia Seybold - External Body temperature 2024-09-30 14:09:00 36.39 Josey Nikia Seybold - External Respiratory rate 2024-09-30 14:09:00 16 /min Nikai Woodybold - External Body height 2024-09-30 14:09:00 167.6 cm Nikia Seybold - External Body weight 2024-09-30 14:09:00 77.747 kg Nikia Seybold - External BMI 2024-09-30 14:09:00 27.66 kg/m2 Nikia Seybold - External Oxygen saturation in Arterial blood by Pulse oximetry 2024-09-30 14:09:00 97 /min Nikia Seybold - External Systolic blood pressure 2024-06-23 15:03:00 135 mm[Hg] Nikia Seybold - External Diastolic blood pressure 2024-06-23 15:03:00 70 mm[Hg] Nikia Seybold - External Heart rate 2024-06-23 15:03:00 82 /min Nikia Seybold - External Body temperature 2024-06-23 15:03:00 36 Josey Nikia Woodybold - External Respiratory rate 2024-06-23 15:03:00 18 /min Nikia Woodybold - External Body height 2024-06-23 15:03:00 167.6 cm Nikia Woodybold - External Body weight 2024-06-23 15:03:00 76.386 kg Nikia Seybold - External BMI 2024-06-23 15:03:00 27.18 kg/m2 Nikia Woodybold - External Oxygen saturation in Arterial blood by Pulse oximetry 2024-06-23 15:03:00 100 /min Nikia Seybold - External Systolic blood pressure 2023-12-15 21:28:00 162 mm[Hg] Nikia Seybold - External Diastolic blood pressure 2023-12-15 21:28:00 76 mm[Hg] Nikia Seybold - External Heart rate 2023-12-15 21:28:00 82 /min Nikia Seybold - External Body temperature 2023-12-15 21:28:00 36.06 Josey Nikia Seybold - External Respiratory rate 2023-12-15 21:28:00 16 /min Nikia Seybold - External Body height 2023-12-15 21:28:00 167.6 cm Nikia Seybold - External Body weight 2023-12-15 21:28:00 72.576 kg Nikia Seybold - External BMI 2023-12-15 21:28:00 25.82 kg/m2 Nikia Seybold - External Oxygen saturation in Arterial blood by Pulse oximetry 2023-12-15 21:28:00 99 /min Nikia Seybold - External Systolic blood pressure 2023-09-29 21:01:00 143 mm[Hg] [...] Diastolic blood pressure 2023-03-20 15:31:00 86 mm[Hg] Nkiia Seybold - External Heart rate 2023-03-20 15:31:00 92 /min Nikia Seybold - External Body temperature 2023-03-20 15:31:00 36.61 Josey Nikia Seybold - External Respiratory rate 2023-03-20 15:31:00 15 /min Nikia Seybold - External Body height 2023-03-20 15:31:00 167.6 cm Nikia Woodybold - External Body weight 2023-03-20 15:31:00 72.576 [...] Respiratory rate 2022-10-24 21:33:00 19 /min Nikia Woodybold - External Body height 2022-10-24 21:33:00 167.6 [...] Heart rate 2022-10-17 13:01:00 87 /min Nikia Liang - External Body temperature 2022-10-17 13:01:00 [...] Performing Clinicia n Source [facility]-10-17 14:40:00 Lucrecia Ontiveros Nikia Liang - External [id number] 2022-09-08 00:00:00 [facility] [id number] 2022-09-08 00:00:00 KAR[facility] [id number] 2022-09-03 00:00:00 GIBJE.01 [facility] [id number] 2022-09-03 00:00:00 GIBJE.01 [facility] [id number] 2022-09-03 00:00:00 GIBJE.01 [facility] [id number] 2022-09-03 00:00:00 GIBJE.01 [facility] [id number] 2022-09-03 00:00:00 GIBJE.01 [facility] [id number] 2022-08-28 00:00:00 JUAJE [facility] [id number] 2022-08-26 00:00:00 HACJE [facility] [id number] 2022-08-25 00:00:00 ALBPA [facility] [id number] 2022-08-19 00:00:00 JHOAN patrick [facility] Encounters Start Date/Time End Date/Time Encounter Type Admission Type Attending [facility] Care Facility Care Department Encounter ID Source 2024-12-26 08:45:00 2024-12-26 08:45:00 Outpatient LAKESHIA ERNSTNOLAN HARRINGTON [id number] [facility] 2024-10-20 00:00:00 2024-10-20 00:00:00 Outpatient HARPAL ARANDA NIKIA HARRINGTON [id number] [facility] 2024-10-04 00:00:00 2024-10-04 00:00:00 Outpatient LAKESHIA ERNST NIKIA HARRINGTON [id number] [facility] 2024-10-03 12:50:00 2024-10-03 12:50:00 Outpatient LAB90 NIKIA HARRINGTON [id number] [facility] 2024-10-03 00:00:00 2024-10-03 00:00:00 Outpatient LAKESHIA ERNST NIKIA HARRINGTON [id number] [facility] 2024-09-30 10:00:00 2024-09-30 10:00:00 Outpatient [id number] NIKIA HARRINGTON [id number] Nik[facility] 2024-09-30 09:30:00 2024-09-30 09:30:00 Outpatient PRELAKESHIA KHOURY NIKIA HARRINGTON [id number] [facility] 2024-09-29 00:00:00 2024-09-29 00:00:00 Outpatient LAKESHIA ERNST NIKIA HARRINGTON [id number] [facility] 2024-09-26 09:00:00 2024-09-26 09:00:00 Outpatient LAB90 NIKIA HARRINGTON [id number] Nikia [facility] 2024-09-22 14:30:00 2024-09-22 14:30:00 Outpatient NIKIA HARRINGTON [id number] Nik[facility] 2024-09-05 00:00:00 2024-09-05 00:00:00 Outpatient LAKESHIA ERNST NIKIA HARRINGTON [id number] [facility] 2024-09-01 00:00:00 2024-09-01 00:00:00 Outpatient HARPAL ARANDA NIKIA [id number] Nikia [facility] 2024-08-31 00:00:00 2024-08-31 00:00:00 Outpatient HARPAL ARANDA NIKIA [id number] Nikia [facility] 2024-08-04 09:15:00 2024-08-04 09:15:00 Outpatient PREZAS, LAKESHIA HARRINGTON NIKIA [id number] [facility] 2024-06-28 00:00:00 2024-06-28 00:00:00 Outpatient PREZAS, LAKESHIA NIKIA HARRINGTON [id number] [facility] 2024-06-27 00:00:00 2024-06-27 00:00:00 Outpatient PREZAS, LAKESHIA NIKIA HARRINGTON [id number] [facility] 2024-06-24 00:00:00 2024-06-24 00:00:00 Outpatient PREZAS, LAKESHIA NIKIA HARRINGTON [id number] [facility] 2024-06-23 09:30:00 2024-06-23 09:30:00 Outpatient [id number] NIKIA NIKIA [id number] [facility] 2024-06-23 09:00:00 2024-06-23 09:00:00 Outpatient PREZAS, LAKESHIA NIKIA HARRINGTON [id number] [facility] 2024-06-21 09:20:00 2024-06-21 09:20:00 Outpatient LAB90 NIKIA HARRINGTON [id number] [facility] 2024-04-13 00:00:00 2024-04-13 00:00:00 Outpatient PREZAS, LAKESHIA NIKIA HARRINGTON [id number] [facility] 2024-03-15 00:00:00 2024-03-15 00:00:00 Outpatient LUCRECIA ONTIVEROS [id number] Nikia Seybold 2024-03-10 00:00:00 2024-03-10 00:00:00 Outpatient PREZAS, LAKESHIA NIKIA HARRINGTON [id number] [facility] 2024-02-26 15:20:00 2024-02-26 15:20:00 Outpatient HACKETTCHARLES NIKIA [id number] [facility] 2024-02-26 00:00:00 2024-02-26 00:00:00 Outpatient PREZAS, LAKESHIA HARRINGTON NIKIA [id number] Nikia Seybold 2024-02-24 00:00:00 2024-02-24 00:00:00 Outpatient PREZAS, LAKESHIA HARRINGTON NIKIA [id number] [facility] 2024-02-22 00:00:00 2024-02-22 00:00:00 Outpatient PREZAS, LAKESHIA HARRINGTON NIKIA [id number] [facility] 2024-02-10 00:00:00 2024-02-10 00:00:00 Outpatient PREZAS, LAKESHIA NIKIA NIKIA [id number] [facility] 2024-01-29 10:45:00 2024-01-29 10:45:00 Outpatient PREZAS, LAKESHIA [facility] [id number] [facility]24-[facility]-27 00:00:00 2024-01-27 00:00:00 Outpatient PREZAS, LAKESHIA NIKIA HARRINGTON [id number] [facility] 2024-01-11 16:00:00 2024-01-11 16:00:00 Outpatient BAJWA, KENY [facility] [id number] [facility] 2024-01-08 15:30:00 2024-01-08 15:30:00 Outpatient PREZAS, LAKESHIA NIKIA HARRINGTON [id number] [facility] 2023-12-16 00:00:00 2023-12-16 00:00:00 Outpatient PREZAS, LAKESHIA NIKIA HARRINGTON [id number] Nikia Seybold 2023-12-15 16:30:00 2023-12-15 16:30:00 Outpatient PREZAS, LAKESHIA NIKIA HARRINGTON [id number] Nikia Seybold 2023-12-04 16:30:00 2023-12-04 16:30:00 Outpatient PREZAS, LAKESHIA HARRINGTON [id number] [facility] 2023-11-25 14:00:00 2023-11-25 14:00:00 Outpatient PREZASLAKESHIA NIKIA [id number] Nikia Seybold 2023-11-24 00:00:00 2023-11-24 00:00:00 Outpatient PREZALAKESHIA Hong NIKIA [id number] Nikia Seybold 2023-11-17 00:00:00 2023-11-17 00:00:00 Outpatient LUCRECIA ONTIVEROS [id number] Nikia Seybold 2023-11-05 00:00:00 2023-11-05 00:00:00 Outpatient PREZASLAKESHIA NIKIA NIKIA [id number] Nikia [facility] 2023-11-02 00:00:00 2023-11-02 00:00:00 Outpatient PREZASLAKESHIA NIKIA [id number] Nikia Seybold 2023-10-30 08:00:00 2023-10-30 08:00:00 Outpatient NIKIA HARRINGTON [id number] Nikia Seybold 2023-10-23 00:00:00 2023-10-23 00:00:00 Outpatient ARNOLDKARMA DESAI NIKIA HARRINGTON [id number] Nikia Seybold 2023-10-21 00:00:00 2023-10-21 00:00:00 Outpatient PREZASLAKESHIA NIKIA [id number] Nikia Seybold 2023-10-13 11:30:00 2023-10-13 11:30:00 Outpatient PREZAS, LAKESHIA NIKIA HARRINGTON [id number] Nikia Seybold 2023-10-12 16:30:00 2023-10-12 16:30:00 Outpatient BAJWAKENY NIKIA HARRINGTON [id number] Nikia Seybold 2023-09-29 16:30:00 2023-09-29 16:30:00 Outpatient LESLIE NIKIA HARRINGTON [id number] Nikia Seybold 2023-09-29 15:45:00 2023-09-29 15:45:00 Outpatient LUCRECIA ONTIVEROS [id number] Nikia Seybold 2023-06-08 08:30:00 2023-06-08 08:30:00 Outpatient AKINADE, CEZARFRANCISCO HARRINGTON [id number] [facility] 2023-05-20 00:00:00 2023-05-20 00:00:00 Outpatient RAMALUCRECIA NIKIA HARR[facility] [id number] [facility] 2023-05-06 08:30:00 2023-05-06 08:30:00 Outpatient AKINADE, CEZAR HARR[facility] [id number] [facility] 2023-04-27 08:15:00 2023-04-27 08:15:00 Outpatient PREZAS, LAKESHIA HARRINGTON [id number] [facility] 2023-04-21 00:00:00 2023-04-21 00:00:00 Outpatient PREZAS, LAKESHIA HARRINGTON [id number] [facility] 2023-04-20 00:00:00 2023-04-20 00:00:00 Outpatient PRE[facility]AS[facility] [id number] [facility]23-[facility]-19 00:00:00 2023-04-19 00:00:00 Outpatient RAMAKWAME SHAWSTEPHANIE HARRINGTON [id number] [facility] 2023-04-10 00:00:00 2023-04-10 00:00:00 Outpatient RAMA, LUCRECIA HARRINGTON [id number] [facility] 2023-04-09 00:00:00 2023-04-09 00:00:00 Outpatient LUCRECIA ONTIVEROS [id number] [facility] 2023-04-06 09:15:00 2023-04-06 09:15:00 Outpatient AKINADE, CEZAR HARRINGTON [id number] [facility] 2023-03-20 10:45:00 2023-03-20 10:45:00 Outpatient PREZAS, LAKESHIA HARRINGTON [id number] [facility] 2023-03-11 09:00:00 2023-03-11 09:00:00 Outpatient AKINADE, CE[facility]AR [facility] [id number] [facility] 2023-03-11 00:00:00 2023-03-11 00:00:00 Outpatient PREZAS, LAKESHIA VIDALSEY [id number] Nik[facility] 2023-03-10 00:00:00 2023-03-10 00:00:00 Outpatient PREZAS, LAKESHIA HARRINGTON NIKIA [id number] [facility] 2023-03-09 10:45:00 2023-03-09 10:45:00 Outpatient PREZAS, LAKESHIA HARRINGTON [id number] [facility] 2023-02-27 00:00:00 2023-02-27 00:00:00 Outpatient PREZAS, LAKESHIA HARRINGTON NIKIA [id number] [facility] 2023-02-26 08:15:00 2023-02-26 08:15:00 Outpatient PREZAS, LAKESHIA HARRINGTON NIKIA [id number] [facility] 2023-02-23 10:15:00 2023-02-23 10:15:00 Outpatient LYNDSEY NOVAK [id number] [facility] 2023-02-19 00:00:00 2023-02-19 00:00:00 Outpatient PREZAS, LAKESHIA HARRINGTON NIKIA [id number] [facility] 2023-02-18 00:00:00 2023-02-18 00:00:00 Outpatient PREZAS, LAKESHIA HARRINGTON NIKIA [id number] [facility] 2023-02-18 00:00:00 2023-02-18 00:00:00 Outpatient PREZAS, LAKESHIA HARRINGTON NIKIA [id number] [facility] 2023-02-18 00:00:00 2023-02-18 00:00:00 Outpatient PREZAS, LAKESHIA HARRINGTON NIKIA [id number] [facility] 2023-02-17 09:35:00 2023-02-17 09:35:00 Outpatient [facility]ESLIE [facility] [id number] [facility] 2023-02-17 08:45:00 2023-02-17 08:45:00 Outpatient PREZAS, LAKESHIA NIKIA NIKIA [id number] [facility] 2023-02-15 00:00:00 2023-02-15 00:00:00 Outpatient LUCRECIA ONTIVEROS [id number] [facility] 2023-01-23 09:20:00 2023-01-23 09:20:00 Outpatient LIANA STEPHENS NIKIA HARRINGTON [id number] Nikia [facility] 2023-01-21 00:00:00 2023-01-21 00:00:00 Outpatient RAMALUCRECIA NIKIA HARRINGTON [id number] [facility] 2023-01-20 13:30:00 2023-01-20 13:30:00 Outpatient PREZASLAKESHIA NIKIA HARRINGTON [id number] [facility] 2022-12-26 00:00:00 2022-12-26 00:00:00 Outpatient RAMA LUCRECIA HARRINGTON [id number] [facility] 2022-12-25 15:30:00 2022-12-25 15:30:00 Outpatient LYDIA NEVAREZ NIKIA HARRINGTON [id number] [facility] 2022-12-23 00:00:00 2022-12-23 00:00:00 Outpatient PREZASLAKESHIA NIKIA HARRINGTON [id number] [facility] 2022-12-23 00:00:00 2022-12-23 00:00:00 Outpatient RAMA LUCRECIA HARRINGTON [id number] [facility] 2022-12-01 00:00:00 2022-12-01 00:00:00 Outpatient RAMA LUCRECIA HARRINGTON [id number] [facility] 2022-11-28 11:30:00 2022-11-28 11:30:00 Outpatient PREZASLAKESHIA NIKIA HARRINGTON [id number] [facility]ia [facility] 2022-11-20 14:10:00 2022-11-20 14:10:00 Outpatient EVELIO NELSON [id number] [facility] 2022-11-19 00:00:00 2022-11-19 00:00:00 Outpatient LUCRECIA ONTIVEROS [id number] [facility] 2022-11-18 15:00:00 2022-11-18 15:00:00 Outpatient JONATHAN ACEVEDO [id number] [facility] 2022-11-18 00:00:00 2022-11-18 00:00:00 Outpatient KRISTINAJONATHAN TRIMBLE NIKIA HARRINGTON [id number] [facility] 2022-11-04 00:00:00 2022-11-04 00:00:00 Outpatient MARLENE BRAN NIKIA HARRINGTON [id number] [facility] 2022-10-27 00:00:00 2022-10-27 00:00:00 Outpatient LUCRECIA ONTIVEROS [id number] [facility] 2022-10-24 16:30:00 2022-10-24 16:30:00 Outpatient LUCRECIA ONTIVEROS [id number] [facility] 2022-10-21 00:00:00 2022-10-21 00:00:00 Outpatient LUCRECIA ONTIVEROS [id number] [facility] 2022-10-21 00:00:00 2022-10-21 00:00:00 Outpatient LUCRECIA ONTIVEROS [id number] [facility] 2022-10-17 09:20:00 2022-10-17 09:20:00 Outpatient LAB90 NIKIA HARRINGTON [id number] [facility] 2022-10-17 08:00:00 2022-10-17 08:00:00 Outpatient LUCRECIA ONTIVEROS [id number] [facility] 2022-10-17 00:00:00 2022-10-17 00:00:00 Outpatient LUCRECIA ONTIVEROS [id number] [facility] 2022-09-02 17:20:00 2022-09-24 18:29:00 Inpatient Mj Neves [facility] REHA [id number] 77 [facility] 2022-08-18 05:13:00 2022-09-02 16:55:00 Inpatient Wilbert Carbone [facility] INTE.02 [id number] [facility] Results Test Description Test Time Test Comments Results Result Co mments Source GLUCOSE [id number] 11:20:00* Test Item Value Reference Range Interpretation Comme nts GLUCOSE BEDSIDE (test code = GLUBED) 100 MG/DL 70-110 N Performed by 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 at [facility] CBC W/AUTO [id number] 07:55:00* Test Item Value Reference Range Interpretation [...] c ode = MDIFF) NO BASIC METABOLIC [id number] 07:33:00* Test Item Value Reference Range Interpretation [...] code = CA) 7.8 mg/dL 8.0-10.5 L [id number] 07:33:00* Test Item Value Reference Range Interpretation Comme nts PHOSPHOROUS (test code = PHOS) 5.4 MG/DL 2.5-4.9 H [id number] 07:33:00* Test Item Value Reference Range Interpretation Comme nts MAGNESIUM (test code = MAG) 2.18 mg/dL 1.80-2.40 N GLUCOSE [id number] 06:08:00* Test Item Value Reference Range Interpretation Comme nts GLUCOSE BEDSIDE (test code = GLUBED) 176 MG/DL 70-110 H Performed by cer tified plastic welding machine operator at [facility] GLUCOSE [id number] 19:52:00* Test Item Value Reference Range Interpretation Comme nts GLUCOSE BEDSIDE (test code = GLUBED) 194 MG/DL 70-110 H Performed by cer tified plastic welding machine operator at [facility] GLUCOSE [id number] 15:58:00* Test Item Value Reference Range Interpretation Comme nts GLUCOSE BEDSIDE (test code = GLUBED) 146 MG/DL 70-110 H Performed by cer tified plastic welding machine operator at [facility] GLUCOSE [id number] 11:33:00* Test Item Value Reference Range Interpretation Comme nts GLUCOSE BEDSIDE (test code = GLUBED) 231 MG/DL 70-110 H Performed by cer tified plastic welding machine operator at [facility] BASIC METABOLIC [id number] 08:11:00* Test Item Value Reference Range Interpretation [...] code = CA) 7.8 mg/dL 8.0-10.5 L [id number] 08:11:00* Test Item Value Reference Range Interpretation Comme nts PHOSPHOROUS (test code = PHOS) 5.2 MG/DL 2.5-4.9 H [id number] 08:11:00* Test Item Value Reference Range Interpretation Comme nts MAGNESIUM (test code = MAG) 2.22 mg/dL 1.80-2.40 N CBC W/AUTO [id number] 07:10:00* Test Item Value Reference Range Interpretation [...] REQUIRED (test code = MDIFF) NO GLUCOSE [id number] 06:01:00* Test Item Value Reference Range Interpretation Comme nts GLUCOSE BEDSIDE (test code = GLUBED) 226 MG/DL 70-110 H Performed by cer tified plastic welding machine operator at [facility] GLUCOSE [id number] 03:42:00* Test Item Value Reference Range Interpretation Comme nts GLUCOSE BEDSIDE (test code = GLUBED) 190 MG/DL 70-110 H Performed by cer tified plastic welding machine operator at [facility] GLUCOSE [id number] 18:59:00* Test Item Value Reference Range Interpretation Comme nts GLUCOSE BEDSIDE (test code = GLUBED) 156 MG/DL 70-110 H Performed by cer tified plastic welding machine operator at [facility] GLUCOSE [id number] 16:16:00* Test Item Value Reference Range Interpretation Comme nts GLUCOSE BEDSIDE (test code = GLUBED) 118 MG/DL 70-110 H Performed by cer tified plastic welding machine operator at [facility] GLUCOSE [id number] 11:22:00* Test Item Value Reference Range Interpretation Comme nts GLUCOSE BEDSIDE (test code = GLUBED) 170 MG/DL 70-110 H Performed by ruel hameed plastic welding machine operator at [facility] B-TYPE NATRIURETIC [id number] 07:36:00* Test Item Value Reference Range Interpretation Comme nts B-TYPE NATRIURETIC PEPTIDE ( test code = BNP) 251.0 PG/ML 0-100 H CBC W/AUTO [id number] 07:01:00* Test Item Value Reference Range Interpretation [...] (test c ode = MDIFF) NO GLUCOSE [id number] 06:33:00* Test Item Value Reference Range Interpretation Comme nts GLUCOSE BEDSIDE (test code = GLUBED) 251 MG/DL 70-110 H Performed by cer 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 at [facility] BASIC METABOLIC [id number] 05:27:00* Test Item Value Reference Range Interpretation [...] code = CA) 7.3 mg/dL 8.0-10.5 L [id number] 05:27:00* Test Item Value Reference Range Interpretation Comme nts ALBUMIN (test code = ALB) 1.80 g/dL 3.4-5.0 L [id number] 05:27:00* Test Item Value Reference Range Interpretation Comme nts PHOSPHOROUS (test code = PHOS) 5.0 MG/DL 2.5-4.9 H CREATINE KINASE (CK)2022-09-22 05:27:00* Test Item Value Reference Range Interpretation Comme nts CREATINE KINASE (CK) (test c ode = CK) 27 Units/L 46-171 L [id number] 05:27:00* Test Item Value Reference Range Interpretation Comme nts MAGNESIUM (test code = MAG) 2.13 mg/dL 1.80-2.40 N [id number] 05:27:00* Test Item Value Reference Range Interpretation Comme nts PREALBUMIN (test code = PREALB) 16.7 mg/dL 16.0-40.0 N GLUCOSE [id number] 21:01:00* Test Item Value Reference Range Interpretation Comme nts GLUCOSE BEDSIDE (test code = GLUBED) 251 MG/DL 70-110 H Performed by cer tified plastic welding machine operator at [facility] GLUCOSE [id number] 16:07:00* Test Item Value Reference Range Interpretation Comme nts GLUCOSE BEDSIDE (test code = GLUBED) 170 MG/DL 70-110 H Performed by cer tified plastic welding machine operator at [facility] GLUCOSE [id number] 14:50:00* Test Item Value Reference Range Interpretation Comme nts GLUCOSE BEDSIDE (test code = GLUBED) 167 MG/DL 70-110 H Performed by cer tified plastic welding machine operator at [facility] GLUCOSE [id number] 12:12:00* Test Item Value Reference Range Interpretation Comme nts GLUCOSE BEDSIDE (test code = GLUBED) 162 MG/DL 70-110 H Performed by [facility] [employer] plastic welding machine operator at [facility] BASIC METABOLIC [id number] 08:19:00* Test Item Value Reference Range Interpretation [...] code = CA) 7.5 mg/dL 8.0-10.5 L [id number] 08:19:00* Test Item Value Reference Range Interpretation Comme nts PHOSPHOROUS (test code = PHOS) 5.0 MG/DL 2.5-4.9 H [id number] 08:19:00* Test Item Value Reference Range Interpretation Comme nts MAGNESIUM (test code = MAG) 2.06 mg/dL 1.80-2.40 N CBC W/AUTO [id number] 07:24:00* Test Item Value Reference Range Interpretation [...] REQUIRED (test code = MDIFF) NO GLUCOSE [id number] 05:59:00* Test Item Value Reference Range Interpretation Comme nts GLUCOSE BEDSIDE (test code = GLUBED) 155 MG/DL 70-110 H Performed by cer tified plastic welding machine operator at [facility] GLUCOSE [id number] 20:10:00* Test Item Value Reference Range Interpretation Comme nts GLUCOSE BEDSIDE (test code = GLUBED) 239 MG/DL 70-110 H Performed by cer tified plastic welding machine operator at [facility] GLUCOSE [id number] 16:14:00* Test Item Value Reference Range Interpretation Comme nts GLUCOSE BEDSIDE (test code = GLUBED) 159 MG/DL 70-110 H Performed by cer tified plastic welding machine operator at [facility] GLUCOSE [id number] 11:52:00* Test Item Value Reference Range Interpretation Comme nts GLUCOSE BEDSIDE (test code = GLUBED) 155 MG/DL 70-110 H Performed by cer tified plastic welding machine operator at [facility] GLUCOSE [id number] 09:34:00* Test Item Value Reference Range Interpretation Comme nts GLUCOSE BEDSIDE (test code = GLUBED) 299 MG/DL 70-110 H Performed by cer tified plastic welding machine operator at [facility] BASIC METABOLIC [id number] 08:04:00* Test Item Value Reference Range Interpretation [...] code = CA) 7.4 mg/dL 8.0-10.5 L [id number] 08:04:00* Test Item Value Reference Range Interpretation Comme nts PHOSPHOROUS (test code = PHOS) 5.4 MG/DL 2.5-4.9 H [id number] 08:04:00* Test Item Value Reference Range Interpretation Comme nts MAGNESIUM (test code = MAG) 2.05 mg/dL 1.80-2.40 CBC W/AUTO [id number] 07:53:00* Test Item Value Reference Range Interpretation [...] (test c ode = MDIFF) NO GLUCOSE [id number] 05:15:00* Test Item Value Reference Range Interpretation Comme nts GLUCOSE BEDSIDE (test code = GLUBED) 277 MG/DL 70-110 H Performed by cer tified plastic welding machine operator at [facility] GLUCOSE [id number] 20:06:00* Test Item Value Reference Range Interpretation Comme nts GLUCOSE BEDSIDE (test code = GLUBED) 236 MG/DL 70-110 H Performed by cer tified plastic welding machine operator at [facility] GLUCOSE [id number] 16:11:00* Test Item Value Reference Range Interpretation Comme nts GLUCOSE BEDSIDE (test code = GLUBED) 224 MG/DL 70-110 H Performed by cer tified plastic welding machine operator at [facility] GLUCOSE [id number] 11:46:00* Test Item Value Reference Range Interpretation Comme nts GLUCOSE BEDSIDE (test code = GLUBED) 96 MG/DL 70-110 N Performed by cer tified plastic welding machine operator at [facility] CBC W/AUTO [id number] 07:51:00* Test Item Value Reference Range Interpretation [...] c ode = MDIFF) NO BASIC METABOLIC [id number] 07:34:00* Test Item Value Reference Range Interpretation [...] code = CA) 7.5 mg/dL 8.0-10.5 L [id number] 07:34:00* Test Item Value Reference Range Interpretation Comme nts PHOSPHOROUS (test code = PHOS) 5.0 MG/DL 2.5-4.9 H [id number] 07:34:00* Test Item Value Reference Range Interpretation Comme nts MAGNESIUM (test code = MAG) 1.69 mg/dL 1.80-2.40 L GLUCOSE [id number] 05:10:00* Test Item Value Reference Range Interpretation Comme nts GLUCOSE BEDSIDE (test code = GLUBED) 162 MG/DL 70-110 H Performed by cer tified plastic welding machine operator at [facility] GLUCOSE [id number] 22:02:00* Test Item Value Reference Range Interpretation Comme nts GLUCOSE BEDSIDE (test code = GLUBED) 103 MG/DL 70-110 N Performed by cer tified plastic welding machine operator at [facility] GLUCOSE [id number] 20:07:00* Test Item Value Reference Range Interpretation Comme nts GLUCOSE BEDSIDE (test code = GLUBED) 70 MG/DL 70-110 N Performed by cer tified plastic welding machine operator at [facility] GLUCOSE [id number] 16:28:00* Test Item Value Reference Range Interpretation Comme nts GLUCOSE BEDSIDE (test code = GLUBED) 118 MG/DL 70-110 H Performed by cer tified plastic welding machine operator at [facility] ANTINUCLEAR ANTIBODIES [id number] 12:11:00* Test Item Value Reference Range Interpretation Comme nts FANNIE SCREEN (test code = ANASCR) Negative See_Comment Negative <1:80 B orderline 1:80 Positive >1:80ICAP nomenclature: AC-0For more information about Hep-2 cell patterns useANApatterns.org, the official website for theInternational Consensus on Antinuclear Antibody (FANNIE)Patterns (ICAP).Performed At: [facility] [id number] Castro MD Ph:[phone] [Automated message] The system which generated this result transmitted reference range: (). The reference range was not used to interpret this result as normal/abnormal. COMPLEMENT [id number] 12:11:00* Test Item Value Reference Range Interpretation Comme nts COMPLEMENT C3 (test code = COMC3) 121 mg/dL 82-167 Performed At: [facility] [address] [id number] Castro MD Ph:[phone] COMPLEMENT [id number] 12:11:00* Test Item Value Reference Range Interpretation Comme nts COMPLEMENT C4 (test code = COMC4) 31 mg/dL 12-38 GLUCOSE [id number] 11:16:00* Test Item Value Reference Range Interpretation Comme nts GLUCOSE BEDSIDE (test code = GLUBED) 80 MG/DL 70-110 N Performed by cer tified plastic welding machine operator at [facility] GLUCOSE [id number] 09:18:00* Test Item Value Reference Range Interpretation Comme nts GLUCOSE BEDSIDE (test code = GLUBED) 171 MG/DL 70-110 H Performed by cer tified plastic welding machine operator at [facility] CBC W/AUTO [id number] 07:52:00* Test Item Value Reference Range Interpretation [...] c ode = MDIFF) NO BASIC METABOLIC [id number] 07:47:00* Test Item Value Reference Range Interpretation [...] code = CA) 7.5 mg/dL 8.0-10.5 L [id number] 07:47:00* Test Item Value Reference Range Interpretation Comme nts PHOSPHOROUS (test code = PHOS) 4.4 MG/DL 2.5-4.9 N [id number] 07:47:00* Test Item Value Reference Range Interpretation Comme nts MAGNESIUM (test code = MAG) 1.83 mg/dL 1.80-2.40 N GLUCOSE [id number] 05:52:00* Test Item Value Reference Range Interpretation Comme nts GLUCOSE BEDSIDE (test code = GLUBED) 203 MG/DL 70-110 H Performed by cer tif[employer]om[employer] plastic welding machine operator at [facility] GLUCOSE [id number] 19:34:00* Test Item Value Reference Range Interpretation Comme nts GLUCOSE BEDSIDE (test code = GLUBED) 160 MG/DL 70-110 H Performed by cer [employer] plastic welding machine operator at [facility] GLUCOSE [id number] 16:16:00* Test Item Value Reference Range Interpretation Comme nts GLUCOSE BEDSIDE (test code = GLUBED) 75 MG/DL 70-110 N Performed by cer t[employer] plastic welding machine operator at [facility] GLUCOSE [id number] 10:44:00* Test Item Value Reference Range Interpretation Comme nts GLUCOSE BEDSIDE (test code = GLUBED) 256 MG/DL 70-110 H Performed by cer tified plastic welding machine operator at [facility] GLUCOSE [id number] 10:03:00* Test Item Value Reference Range Interpretation Comme nts GLUCOSE BEDSIDE (test code = GLUBED) 287 MG/DL 70-110 H Performed by cer tified plastic welding machine operator at [facility] CBC W/AUTO [id number] 09:09:00* Test Item Value Reference Range Interpretation [...] c ode = MDIFF) NO BASIC METABOLIC [id number] 07:34:00* Test Item Value Reference Range Interpretation [...] code = CA) 7.4 mg/dL 8.0-10.5 L [id number] 07:34:00* Test Item Value Reference Range Interpretation Comme nts PHOSPHOROUS (test code = PHOS) 4.5 MG/DL 2.5-4.9 N [id number] 07:34:00* Test Item Value Reference Range Interpretation Comme nts MAGNESIUM (test code = MAG) 1.97 mg/dL 1.80-2.40 N GLUCOSE [id number] 06:16:00* Test Item Value Reference Range Interpretation Comme nts GLUCOSE BEDSIDE (test code = GLUBED) 286 MG/DL 70-110 H Performed by cer tified plastic welding machine operator at [facility] GLUCOSE [id number] 05:03:00* Test Item Value Reference Range Interpretation Comme nts GLUCOSE BEDSIDE (test code = GLUBED) 273 MG/DL 70-110 H Performed by cer tified plastic welding machine operator at [facility] GLUCOSE [id number] 00:02:00* Test Item Value Reference Range Interpretation Comme nts GLUCOSE BEDSIDE (test code = GLUBED) 291 MG/DL 70-110 H Performed by cer tified plastic welding machine operator at [facility] GLUCOSE [id number] 19:47:00* Test Item Value Reference Range Interpretation Comme nts GLUCOSE BEDSIDE (test code = GLUBED) 219 MG/DL 70-110 H Performed by cer tified plastic welding machine operator at [facility] GLUCOSE [id number] 16:01:00* Test Item Value Reference Range Interpretation Comme nts GLUCOSE BEDSIDE (test code = GLUBED) 62 MG/DL 70-110 L Performed by cer tified plastic welding machine operator at [facility] GLUCOSE [id number] 14:54:00* Test Item Value Reference Range Interpretation Comme nts GLUCOSE BEDSIDE (test code = GLUBED) 60 MG/DL 70-110 L Performed by cer tified plastic welding machine operator at [facility] GLUCOSE [id number] 11:23:00* Test Item Value Reference Range Interpretation Comme nts GLUCOSE BEDSIDE (test code = GLUBED) 148 MG/DL 70-110 H Performed by cer tified plastic welding machine operator at [facility] BASIC METABOLIC [id number] 08:08:00* Test Item Value Reference Range Interpretation [...] code = CA) 7.5 mg/dL 8.0-10.5 L [id number] 08:08:00* Test Item Value Reference Range Interpretation Comme nts PHOSPHOROUS (test code = PHOS) 4.6 MG/DL 2.5-4.9 N [id number] 08:08:00* Test Item Value Reference Range Interpretation Comme nts MAGNESIUM (test code = MAG) 1.93 mg/dL 1.80-2.40 N CBC W/AUTO [id number] 07:27:00* Test Item Value Reference Range Interpretation [...] (test c ode = MDIFF) NO GLUCOSE [id number] 06:07:00* Test Item Value Reference Range Interpretation Comme nts GLUCOSE BEDSIDE (test code = GLUBED) 195 MG/DL 70-110 H Performed by cer tified plastic welding machine operator at [facility] GLUCOSE [id number] 20:10:00* Test Item Value Reference Range Interpretation Comme nts GLUCOSE BEDSIDE (test code = GLUBED) 124 MG/DL 70-110 H Performed by cer tified plastic welding machine operator at [facility] GLUCOSE [id number] 16:55:00* Test Item Value Reference Range Interpretation Comme nts GLUCOSE BEDSIDE (test code = GLUBED) 137 MG/DL 70-110 H Performed by cer tified plastic welding machine operator at [facility] URINALYSIS [id number] 13:55:00* Test Item Value Reference Range Interpretation [...] N UA BLOOD DIPSTICK (test code = OYSI) 2+ NEGATIVE A UA PH DIPSTICK (test [...] MUCU) TRACE /LPF NONE SEEN UR PROTEIN [id number] 13:55:00* Test Item Value Reference Range Interpretation Comme nts UR PROTEIN RANDOM (test code = PROTU) 283 mg/dL UR CREATININE [id number] 13:55:00* Test Item Value Reference Range Interpretation Comme nts UR CREATININE RANDOM (test code = CREATU) 52.5 mg/dL The Reference Ra nge and Method Performance specificationshave not been established for this fluid. The test resultshould be correlated into the clinical context forinterpretation. GLUCOSE [id number] 12:06:00* Test Item Value Reference Range Interpretation Comme nts GLUCOSE BEDSIDE (test code = GLUBED) 126 MG/DL 70-110 H Performed by ruel hameed plastic welding machine operator at [facility] BASIC METABOLIC [id number] 08:02:00* Test Item Value Reference Range Interpretation [...] code = CA) 7.2 mg/dL 8.0-10.5 L [id number] 08:02:00* Test Item Value Reference Range Interpretation Comme nts ALBUMIN (test code = ALB) 1.50 g/dL 3.4-5.0 L [id number] 08:02:00* Test Item Value Reference Range Interpretation Comme nts PHOSPHOROUS (test code = PHOS) 5.7 MG/DL 2.5-4.9 H CREATINE KINASE (CK)2022-09-15 08:02:00* Test Item Value Reference Range Interpretation Comme nts CREATINE KINASE (CK) (test c ode = CK) 26 Units/L 46-171 L [id number] 08:02:00* Test Item Value Reference Range Interpretation Comme nts MAGNESIUM (test code = MAG) 1.96 mg/dL 1.80-2.40 N [id number] 08:02:00* Test Item Value Reference Range Interpretation Comme nts PREALBUMIN (test code = PREALB) 8.0 mg/dL 16.0-40.0 L CBC W/AUTO [id number] 07:38:00* Test Item Value Reference Range Interpretation [...] (test c ode = MDIFF) NO GLUCOSE [id number] 05:41:00* Test Item Value Reference Range Interpretation Comme nts GLUCOSE BEDSIDE (test code = GLUBED) 309 MG/DL 70-110 H Performed by cer tified plastic welding machine operator at [facility] GLUCOSE [id number] 19:58:00* Test Item Value Reference Range Interpretation Comme nts GLUCOSE BEDSIDE (test code = GLUBED) 193 MG/DL 70-110 H Performed by cer tified plastic welding machine operator at [facility] GLUCOSE [id number] 16:03:00* Test Item Value Reference Range Interpretation Comme nts GLUCOSE BEDSIDE (test code = GLUBED) 60 MG/DL 70-110 L Performed by cer tified plastic welding machine operator at [facility] GLUCOSE [id number] 12:33:00* Test Item Value Reference Range Interpretation Comme nts GLUCOSE BEDSIDE (test code = GLUBED) 137 MG/DL 70-110 H Performed by cer tified plastic welding machine operator at [facility] GLUCOSE [id number] 07:47:00* Test Item Value Reference Range Interpretation Comme nts GLUCOSE BEDSIDE (test code = GLUBED) 290 MG/DL 70-110 H Performed by [employer] tified plastic welding machine operator at [facility] BASIC METABOLIC [id number] 07:42:00* Test Item Value Reference Range Interpretation [...] CA) 7.5 mg/dL 8.0-10.5 L CBC W/AUTO [id number] 07:17:00* Test Item Value Reference Range Interpretation [...] (test c ode = MDIFF) NO GLUCOSE [id number] 05:52:00* Test Item Value Reference Range Interpretation Comme nts GLUCOSE BEDSIDE (test code = GLUBED) 334 MG/DL 70-110 H Performed by cer tified plastic welding machine operator at [facility] GLUCOSE [id number] 19:56:00* Test Item Value Reference Range Interpretation Comme nts GLUCOSE BEDSIDE (test code = GLUBED) 248 MG/DL 70-110 H Performed by cer tified plastic welding machine operator at [facility] GLUCOSE [id number] 17:45:00* Test Item Value Reference Range Interpretation Comme nts GLUCOSE BEDSIDE (test code = GLUBED) 130 MG/DL 70-110 H Performed by cer tified plastic welding machine operator at [facility] GLUCOSE [id number] 12:16:00* Test Item Value Reference Range Interpretation Comme nts GLUCOSE BEDSIDE (test code = GLUBED) 307 MG/DL 70-110 H Performed by cer tified plastic welding machine operator at [facility] CBC W/AUTO [id number] 08:13:00* Test Item Value Reference Range Interpretation [...] c ode = MDIFF) NO BASIC METABOLIC [id number] 07:31:00* Test Item Value Reference Range Interpretation [...] code = CA) 7.8 mg/dL 8.0-10.5 L [id number] 07:31:00* Test Item Value Reference Range Interpretation Comme nts PHOSPHOROUS (test code = PHOS) 4.7 MG/DL 2.5-4.9 N [id number] 07:31:00* Test Item Value Reference Range Interpretation Comme nts MAGNESIUM (test code = MAG) 1.92 mg/dL 1.80-2.40 N GLUCOSE [id number] 05:57:00* Test Item Value Reference Range Interpretation Comme nts GLUCOSE BEDSIDE (test code = GLUBED) 258 MG/DL 70-110 H Performed by cer tified plastic welding machine operator at [facility] GLUCOSE [id number] 20:29:00* Test Item Value Reference Range Interpretation Comme nts GLUCOSE BEDSIDE (test code = GLUBED) 223 MG/DL 70-110 H Performed by cer tified plastic welding machine operator at [facility] GLUCOSE [id number] 16:20:00* Test Item Value Reference Range Interpretation Comme nts GLUCOSE BEDSIDE (test code = GLUBED) 150 MG/DL 70-110 H Performed by cer tified plastic welding machine operator at [facility] UR SMEAR EOSINOPHIL [id number] 12:30:00* Test Item Value Reference Range Interpretation Comme nts UR SMEAR EOSINOPHIL COUNT (t est code = EOSCTU) NONE SEEN B-TYPE NATRIURETIC [id number] 12:00:00* Test Item Value Reference Range Interpretation Comme nts B-TYPE NATRIURETIC PEPTIDE ( test code = BNP) 297.0 PG/ML 0-100 H GLUCOSE [id number] 11:27:00* Test Item Value Reference Range Interpretation Comme nts GLUCOSE BEDSIDE (test code = GLUBED) 68 MG/DL 70-110 L Performed by cer tified plastic welding machine operator at [facility] CBC W/AUTO [id number] 07:35:00* Test Item Value Reference Range Interpretation [...] c ode = MDIFF) NO BASIC METABOLIC [id number] 07:27:00* Test Item Value Reference Range Interpretation [...] code = CA) 8.2 mg/dL 8.0-10.5 N [id number] 07:27:00* Test Item Value Reference Range Interpretation Comme nts PHOSPHOROUS (test code = PHOS) 4.4 MG/DL 2.5-4.9 N [id number] 07:27:00* Test Item Value Reference Range Interpretation Comme nts MAGNESIUM (test code = MAG) 1.86 mg/dL 1.80-2.40 N GLUCOSE [id number] 06:33:00* Test Item Value Reference Range Interpretation Comme nts GLUCOSE BEDSIDE (test code = GLUBED) 170 MG/DL 70-110 H Performed by cer 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 at [facility] - XR CHEST 1 [id number] 00:00:00 [facility] 1965 Sex: MFAX: Mj Sierra [phone] [place]: St: ADM FAX: Rohit Benitez Roxana GRIDER [phone] ---- Name: KARMA ROWLAND [facility] : 1965 Age/S: 56/M [address] [place] [address] Unit #: [id number] Loc: G.[address] [place] [address] Phys: Renetta Beniteznirmalavielka Schmidt NP Acct: [id number] Dis Date: Status: ADM IN PHONE #: [phone] Exam Date: 09/12/20221417 FAX #: [phone] Reason: rales and leg edema EXAMS: CPT CODE: [id number] XR CHEST 1 V 44553 PROCEDURE INFORMATION: Exam: XR Chest Exam date and time: 09/12/2022 1:52 PM Age: 56 years old Clinical indication: Other: Rales; Additional info: Rales and leg edema TECHNIQUE: Imaging protocol: Radiologic exam of the chest. Views: 1 view. COMPARISON: CR XR CHEST 1V 2:30 PM FINDINGS: Tubes, catheters and devices: Stable right PICC line. Lungs: Worsening opacities in the right mid and lower lung reyes. Mildly improved left retrocardiac opacities. The other lung opacities are stable. Pleural spaces: No pleural effusion. No pneumothorax. Heart/Mediastinum: Stable heart size. Diaphragm: Stable elevation of the right hemidiaphragm. Bones/joints: Stable.IMPRESSION: Worsening opacities in the right mid and lower lung reyes. Mildly improved left retrocardiac opacities. at 2028 Reported and signed by: Abel Browne M.D. CC: Mj Vences; Rohit Benitez NP Technologist: RT Angela(R) Trnscrd Date/Time/By: 09/12/2022 (2028) : By: TipSW20 Orig Print D/T: S: 09/12/2022 (2028) PAGE 1 Signed [id number] 22:00:00* Test Item Value Reference Range Interpretation Comme nts VANCOMYCIN (test code = VANCO) 16.7 mcg/mL GLUCOSE [id number] 19:49:00* Test Item Value Reference Range Interpretation Comme nts GLUCOSE BEDSIDE (test code = GLUBED) 150 MG/DL 70-110 H Performed by cer tified plastic welding machine operator at [facility] GLUCOSE [id number] 16:32:00* Test Item Value Reference Range Interpretation Comme nts GLUCOSE BEDSIDE (test code = GLUBED) 93 MG/DL 70-110 N Performed by cer tified plastic welding machine operator at [facility] [id number] 15:18:00* Test Item Value Reference Range Interpretation Comme nts VANCOMYCIN (test code = VANCO) 18.3 mcg/mL IMMUNOELECTROPHORESIS [id number] 14:11:00* Test Item Value Reference Range Interpretation Comme nts IMMUNOGLOBULIN A (test code = ADDI) 598 mg/dL 90-386 A IMMUNOGLOBULIN G (test code = IMMG) 2452 mg/dL 603-1613 A IMMUNOGLOBULIN M (test code = IMMM) 54 mg/dL 20-172 Performed At: [facility] Lghqjv7570 [facility] [address] [place], [place] [id number] CN MD Ph:[phone] ed At: [facility] [address] [id number] Kyle L MD Ph:[phone] IMMUNOFIXATION SERUM (test code = IMMFIXS) Note: [...] 193 IUnits/L 87-241 N TOTAL IRON BINDING [id number] 14:11:00* Test Item Value Reference Range Interpretation Comme nts SERUM IRON (test code = IRON) 10 mcg/dL 35-150 L TOTAL IRON BINDING CAPACITY (test code = TIBC) 138 mcg/dL 260-445 L UIBC (test code = UIBC) 128 mcg/dL IRON SATURATION (test code = FESAT) 7.2 % 14-34 L [id number] 14:11:00* Test Item Value Reference Range Interpretation Comme nts FERRITIN (test code = COLEMAN) 700.5 ng/mL 23.9-336.2 H GLUCOSE [id number] 11:40:00* Test Item Value Reference Range Interpretation Comme nts GLUCOSE BEDSIDE (test code = GLUBED) 109 MG/DL 70-110 N Performed by cer tified plastic welding machine operator at [facility] CBC W/AUTO [id number] 09:23:00* Test Item Value Reference Range Interpretation [...] c ode = MDIFF) NO BASIC METABOLIC [id number] 07:56:00* Test Item Value Reference Range Interpretation [...] code = CA) 8.3 mg/dL 8.0-10.5 N [id number] 07:56:00* Test Item Value Reference Range Interpretation Comme nts PHOSPHOROUS (test code = PHOS) 4.7 MG/DL 2.5-4.9 N [id number] 07:56:00* Test Item Value Reference Range Interpretation Comme nts MAGNESIUM (test code = MAG) 1.90 mg/dL 1.80-2.40 N GLUCOSE [id number] 05:55:00* Test Item Value Reference Range Interpretation Comme nts GLUCOSE BEDSIDE (test code = GLUBED) 127 MG/DL 70-110 H Performed by cer tified plastic welding machine operator at [facility] GLUCOSE [id number] 19:45:00* Test Item Value Reference Range Interpretation Comme nts GLUCOSE BEDSIDE (test code = GLUBED) 97 MG/DL 70-110 N Performed by cer tified plastic welding machine operator at [facility] GLUCOSE [id number] 17:28:00* Test Item Value Reference Range Interpretation Comme nts GLUCOSE BEDSIDE (test code = GLUBED) 75 MG/DL 70-110 N Performed by cer tified plastic welding machine operator at [facility] GLUCOSE [id number] 16:37:00* Test Item Value Reference Range Interpretation Comme nts GLUCOSE BEDSIDE (test code = GLUBED) 58 MG/DL 70-110 L Performed by [employer] tified plastic welding machine operator at [facility] [id number] 15:14:00* Test Item Value Reference Range Interpretation Comme nts VANCOMYCIN (test code = VANCO) 15.7 mcg/mL [id number] 15:13:00* Test Item Value Reference Range Interpretation Comme nts HAPTOGLOBIN (test code = HAPT) 292 mg/dL 29-370 Performed At: [facility] [facility] [address] [place], [place] [id number] CN MD Ph:[phone] SHORT SAMPLE - NOTIFIED NURSE LISA FOR RED TUBE. G.LAB.KAF04 1852GLUCOSE [id number] 10:19:00* Test Item Value Reference Range Interpretation Comme nts GLUCOSE BEDSIDE (test code = GLUBED) 213 MG/DL 70-110 H Performed by cer tified plastic welding machine operator at [facility] BASIC METABOLIC [id number] 08:33:00* Test Item Value Reference Range Interpretation [...] code = CA) 8.3 mg/dL 8.0-10.5 N [id number] 08:33:00* Test Item Value Reference Range Interpretation Comme nts PHOSPHOROUS (test code = PHOS) 4.6 MG/DL 2.5-4.9 N [id number] 08:33:00* Test Item Value Reference Range Interpretation Comme nts MAGNESIUM (test code = MAG) 1.89 mg/dL 1.80-2.40 N CBC W/AUTO [id number] 08:16:00* Test Item Value Reference Range Interpretation [...] (test c ode = MDIFF) NO GLUCOSE [id number] 06:02:00* Test Item Value Reference Range Interpretation Comme nts GLUCOSE BEDSIDE (test code = GLUBED) 154 MG/DL 70-110 H Performed by ruel hameed plastic welding machine operator at [facility] - US RETROPERITONEAL [id number] 00:00:00 [facility] 1965 Sex: MName: KARMA ROWLAND [facility] : 1965 Age/S: 56 / M [address] [place] [address] Unit #: [id number] Loc: [place] [address] Phys: Barrera Ramírez MD Acct: [id number] Dis Date: Status: ADM IN PHONE #: [phone] Exam Date: 09/10/2022 1311 FAX #: [phone] Reason: ERIKA EXAMS: CPT CODE: [id number] US RETROPERITONEAL COM 82825 PROCEDURE INFORMATION: Exam: US Retroperitoneal; Complete; Kidneys and Bladder Exam date and time: 09/10/2022 12:25 PM Age: 56 years old Clinical indication:Condition or disease; Kidney or ureter condition; Acute [...] or hydronephrosis. Urinary bladder: A Camarena catheter is present within an empty bladder, precluding evaluation. IMPRESSION: No acute findings. at 1503 Reported and signed by: Bishop Mares M.D. CC: Barrera Ramírez MD; Mj Vences Technologist: Anisa Garnett RDMS(Vielka)(BR) Trnscb Date/Time: 09/10/2022 (1502) [email or web address].[email or web address] Orig Print D/T: S: 09/10/2022 (433) Probe: PAGE 1 Signed ReportGLUCOSE [id number] 19:36:00* Test Item Value Reference Range Interpretation Comme nts GLUCOSE BEDSIDE (test code = GLUBED) 102 MG/DL 70-110 N Performed by cer tified plastic welding machine operator at [facility] GLUCOSE [id number] 16:18:00* Test Item Value Reference Range Interpretation Comme nts GLUCOSE BEDSIDE (test code = GLUBED) 30 MG/DL 70-110 L Performed by Sanswire plastic welding machine operator at [facility] [id number] 14:38:00* Test Item Value Reference Range Interpretation Comme nts VANCOMYCIN (test code = VANCO) 15.4 mcg/mL [id number] 13:34:00* Test Item Value Reference Range Interpretation Comme nts SURGICAL (test code = SR) R UN DATE: 09/09/22 [facility] - LAB PAGE 1 RUN TIME: 1335 Specimen Inquiry RUN USER: INTERFACE P ATIENT: KARMA ROWLAND ACC #: [id number] [facility] [id number] AGE/SX: 56/M ROOM: [facility] RE09/02/22REG DR: Mj Vences MD : 61 BED: 1 DIS: STATUS: ADM IN TLOC: SPEC #: [id number] RECD: 09/08/22 STATUS: JC CORTEZ #: [id number] JULIENNE: 09/08/22- SUBM DR: Kassie Avitia MD ENTERED: 09/08/22-140 SP TYPE: SURGICAL OTHR DR: No Primary or Family Physician Wilbert Ramires MD, Mirza Z MD Blackburn,Mirella Montez NP,Kingsley Chapin,Braxton Lawrence,Aleah Jeffrey MD,Napoleon Jeffrey,Liam Villar DPMORDERED: [id number], ANATOMIC SPEC COPIES TO: No Primary or Family Physician Wilbert Ramires MD [address] [id number] [place] [address] [facility] [address] [place], [place] [id number] Guero Candelaria [address] [facility] [address] [place], [place] [id number] Mirella Candelaria NP [address] [id number] Kingsley Ng MD [address] [id number] CONTINUED ON NEXT PAGE R UN DATE: 09/09/22 [facility] PAGE 2 RUN TIME: 1335 Specimen Inquiry RUN USER: INTERFACE S PEC #: [id number] PATIENT: KARMA ROWLAND #[id number] (Continued) COPIES TO: (Continued) Kassie Avitia MD [address], [address] [place] [id number] Braxton Chapin MD [address] [facility] [address] [place] [address] Roxie Lawrence [address] [place] [address] [place] [address] Aleah Trinidad MD Formerly named [facility] [facility] [address] [place] [address] OTHER PHONE [phone] (CELL) Napoleon Parham MD [address] [facility], [address] [address] NuviaLiam X DPM [address] [facility], [address] [place] [address] [email or web address] PROCEDURES: [id number] (09/08/22-1405) TISSUES: A. RECTUM BIOPSY CLINICAL HISTORY GASTRITIS, GASTRIC POLYP FINAL DIAGNOSIS Rectum, polypectomy: Tubular adenoma. CONTINUED ON NEXT PAGE R UN DATE: 09/09/22 [facility] - LAB PAGE 3 RUN TIME: 1335 Specimen Inquiry RUN USER: INTERFACE S PEC #: [id number] PATIENT: KARMA ROWLAND #[id number] (Continued) GROSS DESCRIPTION Received in formalin and designated rectal polyp biopsy is 1 segment of pink-bajwa tissuemeasuring 0.2 cm. Submitted in 1 cassette. Technical component performed at [facility],[address] [place] [address], [place] [address] Unless gross only, the diagnosis is based [...] CLINICAL INFORMATION ANEMIA ----- Signed SIGNATURE ON IESHA CheathamreenaWilfrid castro 09/09/22 1334 END OF REPORT GLUCOSE [id number] 11:16:00* Test Item Value Reference Range Interpretation Comme nts GLUCOSE BEDSIDE (test code = GLUBED) 90 MG/DL 70-110 N Performed by ruel hameed plastic welding machine operator at [facility] BASIC METABOLIC [id number] 08:03:00* Test Item Value Reference Range Interpretation [...] code = CA) 8.2 mg/dL 8.0-10.5 N [id number] 08:03:00* Test Item Value Reference Range Interpretation Comme nts PHOSPHOROUS (test code = PHOS) 4.0 MG/DL 2.5-4.9 N [id number] 08:03:00* Test Item Value Reference Range Interpretation Comme nts MAGNESIUM (test code = MAG) 1.89 mg/dL 1.80-2.40 CBC W/AUTO [id number] 07:03:00* Test Item Value Reference Range Interpretation [...] (test c ode = MDIFF) NO GLUCOSE [id number] 05:56:00* Test Item Value Reference Range Interpretation Comme nts GLUCOSE BEDSIDE (test code = GLUBED) 128 MG/DL 70-110 H Performed by cer tified plastic welding machine operator at [facility] GLUCOSE [id number] 20:07:00* Test Item Value Reference Range Interpretation Comme nts GLUCOSE BEDSIDE (test code = GLUBED) 106 MG/DL 70-110 N Performed by cer tified plastic welding machine operator at [facility] RETIC COUNT (AUTOMATED)2022-09-08 19:16:00* Test Item Value Reference Range Interpretation Comme nts RETIC COUNT (AUTOMATED) (ozzy t code = RETICA) 1.3 % 0.3-2.3 N GLUCOSE [id number] 16:29:00* Test Item Value Reference Range Interpretation Comme nts GLUCOSE BEDSIDE (test code = GLUBED) 120 MG/DL 70-110 H Performed by cer tified plastic welding machine operator at [facility] GLUCOSE [id number] 13:31:00* Test Item Value Reference Range Interpretation Comme nts GLUCOSE BEDSIDE (test code = GLUBED) 101 MG/DL 70-110 N Performed by cer tified plastic welding machine operator at [facility] [id number] 11:14:00* Test Item Value Reference Range Interpretation Comme nts VANCOMYCIN (test code = VANCO) 15.8 mcg/mL COMMENTS: RN: vanc dose by level, draw vanc level on timeGLUCOSE BEDSIDE 2022-09-08 10:56:00* Test Item Value Reference Range Interpretation Comme nts GLUCOSE BEDSIDE (test code = GLUBED) 99 MG/DL 70-110 N Performed by cer tified plastic welding machine operator at [facility] BASIC METABOLIC [id number] 09:21:00* Test Item Value Reference Range Interpretation [...] code = CA) 8.1 mg/dL 8.0-10.5 N [id number] 09:21:00* Test Item Value Reference Range Interpretation Comme nts ALBUMIN (test code = ALB) 1.30 g/dL 3.4-5.0 L CREATINE KINASE (CK)2022-09-08 09:21:00* Test Item Value Reference Range Interpretation Comme nts CREATINE KINASE (CK) (test c ode = CK) 22 Units/L 46-171 L [id number] 09:21:00* Test Item Value Reference Range Interpretation Comme nts MAGNESIUM (test code = MAG) 1.58 mg/dL 1.80-2.40 L [id number] 09:21:00* Test Item Value Reference Range Interpretation Comme nts PREALBUMIN (test code = PREALB) < 5.0 mg/dL 16.0-40.0 L CBC W/AUTO [id number] 09:02:00* Test Item Value Reference Range Interpretation [...] (test c ode = MDIFF) NO GLUCOSE [id number] 06:36:00* Test Item Value Reference Range Interpretation Comme nts GLUCOSE BEDSIDE (test code = GLUBED) 101 MG/DL 70-110 N Performed by cer tified plastic welding machine operator at [facility] GLUCOSE [id number] 23:02:00* Test Item Value Reference Range Interpretation Comme nts GLUCOSE BEDSIDE (test code = GLUBED) 135 MG/DL 70-110 H Performed by cer tified plastic welding machine operator at [facility] GLUCOSE [id number] 21:22:00* Test Item Value Reference Range Interpretation Comme nts GLUCOSE BEDSIDE (test code = GLUBED) 127 MG/DL 70-110 H Performed by cer tified plastic welding machine operator at [facility] GLUCOSE [id number] 16:06:00* Test Item Value Reference Range Interpretation Comme nts GLUCOSE BEDSIDE (test code = GLUBED) 112 MG/DL 70-110 H Performed by cer tified plastic welding machine operator at [facility] GLUCOSE [id number] 11:51:00* Test Item Value Reference Range Interpretation Comme nts GLUCOSE BEDSIDE (test code = GLUBED) 51 MG/DL 70-110 L Performed by cer tified plastic welding machine operator at [facility] GLUCOSE [id number] 11:44:00* Test Item Value Reference Range Interpretation Comme nts GLUCOSE BEDSIDE (test code = GLUBED) 42 MG/DL 70-110 L Performed by cer tified plastic welding machine operator at [facility] [id number] 08:33:00* Test Item Value Reference Range Interpretation Comme nts VANCOMYCIN (test code = VANCO) 14.7 mcg/mL HGB [id number] 07:59:00* Test Item Value Reference Range Interpretation Comme nts HEMOGLOBIN (test code = HGB) 8.4 g/dL 12.5-16.9 L HEMATOCRIT (test code = HCT) 26.2 % 37.5-50.7 L [id number] 07:51:00* Test Item Value Reference Range Interpretation Comme nts CREATININE (test code = CREAT) 1.4 mg/dL 0.6-1.3 H GLUCOSE [id number] 06:34:00* Test Item Value Reference Range Interpretation Comme nts GLUCOSE BEDSIDE (test code = GLUBED) 135 MG/DL 70-110 H Performed by cer tified plastic welding machine operator at [facility] GLUCOSE [id number] 22:38:00* Test Item Value Reference Range Interpretation Comme nts GLUCOSE BEDSIDE (test code = GLUBED) 192 MG/DL 70-110 H Performed by cer tified plastic welding machine operator at [facility] GLUCOSE [id number] 21:31:00* Test Item Value Reference Range Interpretation Comme nts GLUCOSE BEDSIDE (test code = GLUBED) 211 MG/DL 70-110 H Performed by [employer] plastic welding machine operator at [facility] VANCOMYCIN [id number] 16:23:00* Test Item Value Reference Range Interpretation Comme nts VANCOMYCIN TROUGH (test code = VANCT) 18.9 mcg/mL 10.0-20.0 N 10-15 mcg/mL - Cellulitis, Urinary Tract Infection. 15-20 mcg/mL - Bacteremia, Infective Endocarditis, Meningitis, Osteomyelitis, Pneumonia, Severe Skin/Soft-Tissue Infection, Spinal Abscess. GLUCOSE [id number] 16:02:00* Test Item Value Reference Range Interpretation Comme nts GLUCOSE BEDSIDE (test code = GLUBED) 119 MG/DL 70-110 H Performed by Sanswire plastic welding machine operator at [facility] GLUCOSE [id number] 11:03:00* Test Item Value Reference Range Interpretation Comme nts GLUCOSE BEDSIDE (test code = GLUBED) 92 MG/DL 70-110 N Performed by cer JollyDeckied plastic welding machine operator at [facility] HGB [id number] 08:55:00* Test Item Value Reference Range Interpretation Comme nts HEMOGLOBIN (test code = HGB) 8.6 g/dL 12.5-16.9 L HEMATOCRIT (test code = HCT) 26.1 % 37.5-50.7 L [id number] 07:45:00* Test Item Value Reference Range Interpretation Comme nts CREATININE (test code = CREAT) 1.4 mg/dL 0.6-1.3 H GLUCOSE [id number] 06:18:00* Test Item Value Reference Range Interpretation Comme nts GLUCOSE BEDSIDE (test code = GLUBED) 124 MG/DL 70-110 H Performed by Infoteria Corporationied plastic welding machine operator at [facility] GLUCOSE [id number] 19:36:00* Test Item Value Reference Range Interpretation Comme nts GLUCOSE BEDSIDE (test code = GLUBED) 117 MG/DL 70-110 H Performed by [employer] plastic welding machine operator at [facility] GLUCOSE [id number] 16:51:00* Test Item Value Reference Range Interpretation Comme nts GLUCOSE BEDSIDE (test code = GLUBED) 123 MG/DL 70-110 H Performed by Sanswire plastic welding machine operator at [facility] GLUCOSE [id number] 12:01:00* Test Item Value Reference Range Interpretation Comme nts GLUCOSE BEDSIDE (test code = GLUBED) 74 MG/DL 70-110 N Performed by cer tified plastic welding machine operator at [facility] HGB [id number] 07:54:00* Test Item Value Reference Range Interpretation Comme nts HEMOGLOBIN (test code = HGB) 7.1 g/dL 12.5-16.9 L HEMATOCRIT (test code = HCT) 22.7 % 37.5-50.7 L BASIC METABOLIC [id number] 07:40:00* Test Item Value Reference Range Interpretation [...] calculation forGFR is based on the CKD-EPI (2021) calculation. This formulais race indifferent and is the recommended formula for GFRby the National Kidney Foundation for Adults.The GFR will not calculate if the sex is unknown or if thepatient's age is <18 years. CREATININE (test code = CREAT) 1.3 mg/dL 0.6-1.3 N CALCIUM (test code = CA) 7.9 mg/dL 8.0-10.5 L - XR CHEST 1 [id number] 00:00:00 [facility] 1965 Sex: MFAX: Mj Sierra [phone] [place]: St: ADM FAX: Rohit Benitez NP [phone] ---- Name: KARMA ROWLAND [facility] : 1965 Age/S: 56/M [address] [place] [address] Bl Unit #: [id number] Loc: G.[address] [place] [address] Phys: Rohit Benitez NP Acct: [id number] Dis Date: Status: ADM IN PHONE #: [phone] Exam Date: 09/05/2022 1436 FAX #: [phone] Reason: sob EXAMS: CPT CODE: [id number] XR CHEST 1 V 90226 PROCEDURE INFORMATION: Exam: XR Chest Exam date [...] Benitez NP Technologist: Jenaro Carrillo Date/Time/By: 09/05/2022 (205) : By: Yared Orig Print D/T: S: 09/05/2022 (1514) PAGE 1 Signed Report- DUP VEIN UNI/[id number] 00:00:00 [facility] : 1965 Sex: MName: KARMA ROWLAND [facility] : 1965 Age/S: 56 / M [address] [place] [address] Unit #: [id number] Loc: [place] [address] Phys: Mj Vences MD Acct: [id number] Dis Date: Status: ADM IN PHONE #: [phone] Exam Date: 09/05/2022 1146 FAX #: [phone] Reason: R/0 DVT EXAMS: CPT CODE: [id number] DUP VEIN UNI/LTD 88888 PROCEDURE INFORMATION: Exam: US Duplex Left Lower Extre mity Veins, Limited Exam date and time: 09/05/2022 [...] M.D. CC: Mj Vences Technologist: Dave Gaines [facility] Date/Time: 09/05/2022 (1331) Dilip.AB53 Orig Print D/T: S: 09/05/2022 (1332) Probe: PAGE 1 SignedReport GLUCOSE [id number] 20:54:00* Test Item Value Reference Range Interpretation Comme nts GLUCOSE BEDSIDE (test code = GLUBED) 103 MG/DL 70-110 N Performed by [employer] plastic welding machine operator at [facility] VANCOMYCIN [id number] 17:00:00* Test Item Value Reference Range Interpretation Comme nts VANCOMYCIN TROUGH (test code = VANCT) 12.8 mcg/mL 10.0-20.0 N 10-15 mcg/mL - Cellulitis, Urinary Tract Infection. 15-20 mcg/mL - Bacteremia, Infective Endocarditis, Meningitis, Osteomyelitis, Pneumonia, Severe Skin/Soft-Tissue Infection, Spinal Abscess. GLUCOSE [id number] 16:20:00* Test Item Value Reference Range Interpretation Comme nts GLUCOSE BEDSIDE (test code = GLUBED) 128 MG/DL 70-110 H Performed by [employer] plastic welding machine operator at [facility] HGB [id number] 11:42:00* Test Item Value Reference Range Interpretation Comme nts HEMOGLOBIN (test code = HGB) 7.7 g/dL 12.5-16.9 L HEMATOCRIT (test code = HCT) 23.7 % 37.5-50.7 L GLUCOSE [id number] 11:21:00* Test Item Value Reference Range Interpretation Comme nts GLUCOSE BEDSIDE (test code = GLUBED) 107 MG/DL 70-110 N Performed by cer tified plastic welding machine operator at [facility] GLUCOSE [id number] 08:28:00* Test Item Value Reference Range Interpretation Comme nts GLUCOSE BEDSIDE (test code = GLUBED) 99 MG/DL 70-110 N Performed by [facility] tified plastic welding machine operator at [facility] GLUCOSE [id number] 07:33:00* Test Item Value Reference Range Interpretation Comme nts GLUCOSE BEDSIDE (test code = GLUBED) 87 MG/DL 70-110 N Performed by [facility] tified plastic welding machine operator at [facility] HGB [id number] 07:27:00* Test Item Value Reference Range Interpretation Comme nts HEMOGLOBIN (test code = HGB) 6.8 g/dL 12.5-16.9 L HEMATOCRIT (test code = HCT) 21.2 % 37.5-50.7 L - XR ABDOMEN 1V (KUB)2022-09-04 00:00:00 [facility] 1965 Sex: MFAX: Mj Sierra [phone] [place]: St: ADM Name: KARMA ROWLAND [facility] Jace Nevarez : 1965 Age/S:56/M [address] [place] [address] Unit #: [id number] Loc: [address] [address] Phys: Mj Vences MD Acct: [id number] Dis Date: Status: ADM IN PHONE #: [phone] Exam Date: 09/04/2022 1648FAX #: [phone] Reason: DISTENDED ABDOMEN EXAMS: CPT CODE: [id number] XR ABDOMEN 1V (KUB) [id number] INFORMATION: Exam: XR Abdomen Exam date and time: 09/04/2022 4:48 PM Age: 56 years old Clinical indication: Abdominal distension. TECHNIQUE: Imaging protocol: Radiologic exam of the abdomen.Views: Frontal supine view of the abdomen. 1 [...] S: 09/04/2022 (1756) PAGE 1 Signed ReportVANCOMYCIN [id number] 20:29:00* Test Item Value Reference Range Interpretation Comme nts VANCOMYCIN PEAK (test code = VANCP) 27.4 MCG/ML 30-40 L GLUCOSE [id number] 20:01:00* Test Item Value Reference Range Interpretation Comme nts GLUCOSE BEDSIDE (test code = GLUBED) 124 MG/DL 70-110 H Performed by cer tified plastic welding machine operator at [facility] GLUCOSE [id number] 16:44:00* Test Item Value Reference Range Interpretation Comme nts GLUCOSE BEDSIDE (test code = GLUBED) 135 MG/DL 70-110 H Performed by cer tified plastic welding machine operator at [facility] GLUCOSE [id number] 12:45:00* Test Item Value Reference Range Interpretation Comme nts GLUCOSE BEDSIDE (test code = GLUBED) 136 MG/DL 70-110 H Performed by cer tified plastic welding machine operator at [facility] GLUCOSE [id number] 12:05:00* Test Item Value Reference Range Interpretation Comme nts GLUCOSE BEDSIDE (test code = GLUBED) 44 MG/DL 70-110 L Performed by cer tified plastic welding machine operator at [facility] CBC W/AUTO [id number] 07:41:00* Test Item Value Reference Range Interpretation [...] c ode = MDIFF) NO COMPREHENSIVE METABOLIC [id number] 07:30:00* Test Item Value Reference Range Interpretation [...] code = ALKP) 93 IUnit/L 20-125 N [id number] 07:30:00* Test Item Value Reference Range Interpretation Comme nts MAGNESIUM (test code = MAG) 1.89 mg/dL 1.80-2.40 N [id number] 07:30:00* Test Item Value Reference Range Interpretation Comme nts PREALBUMIN (test code = PREALB) < 5.0 mg/dL 16.0-40.0 L GLUCOSE [id number] 05:35:00* Test Item Value Reference Range Interpretation Comme nts GLUCOSE BEDSIDE (test code = GLUBED) 88 MG/DL 70-110 N Performed by cer tified plastic welding machine operator at [facility] GLUCOSE [id number] 19:45:00* Test Item Value Reference Range Interpretation Comme nts GLUCOSE BEDSIDE (test code = GLUBED) 159 MG/DL 70-110 H Performed by cer tified plastic welding machine operator at [facility] GLUCOSE [id number] 17:45:00* Test Item Value Reference Range Interpretation Comme nts GLUCOSE BEDSIDE (test code = GLUBED) 102 MG/DL 70-110 N Performed by cer tified plastic welding machine operator at [facility] GLUCOSE [id number] 16:23:00* Test Item Value Reference Range Interpretation Comme nts GLUCOSE BEDSIDE (test code = GLUBED) 97 MG/DL 70-110 N Performed by cer tified plastic welding machine operator at [facility] GLUCOSE [id number] 15:40:00* Test Item Value Reference Range Interpretation Comme nts GLUCOSE BEDSIDE (test code = GLUBED) 257 MG/DL 70-110 H Performed by cer tified plastic welding machine operator at [facility] GLUCOSE [id number] 11:00:00* Test Item Value Reference Range Interpretation Comme nts GLUCOSE BEDSIDE (test code = GLUBED) 162 MG/DL 70-110 H Performed by cer tified plastic welding machine operator at [facility] GLUCOSE [id number] 10:22:00* Test Item Value Reference Range Interpretation Comme nts GLUCOSE BEDSIDE (test code = GLUBED) 62 MG/DL 70-110 L Performed by cer tified plastic welding machine operator at [facility] GLUCOSE [id number] 10:20:00* Test Item Value Reference Range Interpretation Comme nts GLUCOSE BEDSIDE (test code = GLUBED) 63 MG/DL 70-110 L Performed by cer tified plastic welding machine operator at [facility] GLUCOSE [id number] 06:41:00* Test Item Value Reference Range Interpretation Comme nts GLUCOSE BEDSIDE (test code = GLUBED) 77 MG/DL 70-110 N Performed by cer tified plastic welding machine operator at [facility] BASIC METABOLIC [id number] 05:46:00* Test Item Value Reference Range Interpretation [...] = CA) 7.4 mg/dL 8.0-10.5 L GLUCOSE [id number] 19:54:00* Test Item Value Reference Range Interpretation Comme [facility] GLUCOSE BEDSIDE (test code = GLUBED) 91 MG/DL 70-110 N Performed by [facility] [employer] plastic welding machine operator at [facility] GLUCOSE [id number] 17:17:00* Test Item Value Reference Range Interpretation Comme [facility] GLUCOSE BEDSIDE (test code = GLUBED) 127 MG/DL 70-110 H Performed by [facility] [employer] plastic welding machine operator at [facility] [id number] 11:20:00* Test Item Value Reference Range Interpretation Comme [facility] SURGICAL (test code = SR) R UN DATE: 09/01/22 [facility] PAGE 1 RUN TIME: 1120 Specimen Inquiry RUN USER: INTERFACE P ATIENT: KARMA ROWLAND LOC: [facility] U #: [id number] AGE/SX: 56/M ROOM: [facility] RE08/18/22REG DR: Wilbert Ramires MD : 61 BED: 1 DIS: STATUS: ADM IN TLOC: SPEC #: [id number] RECD: 08/29/22 STATUS: JC REQ #: [id number] JULIENNE: 08/28/22 DR: Nixon Leroy MD ENTERED: 08/29/22 SP TYPE: SURGICAL OTHR DR: No Primary or Family Physician Self Referred Anthony Curtis MD, Brent J MD Gibberman, Jeffrey B MD Hackney, Jeromy T MD Juarez, Jesus MD Kaul, Kuldip K MD Patel,Napoleon Jeffrey,Liam X DPM Yo,In S MDORDERED: [id number], ANATOMIC SPEC CODES: [id number] - LEG, NOS COPIES TO: No Primary or Family [place] [address] [facility] [address] [place], [place] [id number] Andrew London MD [address] [place] [address] Mj Vences MD [address] [facility] [address] [place] [address] David Du MD [address] [facility] [place] [address] [email or web address] CONTINUED ON NEXT PAGE R UN DATE: 09/01/22 [facility] PAGE 2 RUN TIME: 1120 Specimen Inquiry RUN USER: INTERFACE S PEC #: [id number] PATIENT: KARMA ROWLAND #[id number] (Continued) COPIES TO: (Continued) Nixon Leroy MD [address] [place] [address] Braxton Chapin MD [address] [facility] [address] [place] [address] Napoleon Parham MD [address] [facility], [address] [place], [place] [address] Liam Jeffrey DPM 0980 [facility] [address] [place] [phone] [email or web address] Forrest Oswald MD [address] [place] [address] [address] [place] [address] PROCEDURES: [id number] (08/29/22) TISSUES: LEG, NOS - RIGHT BELOW [...] The resection margins appear grossly viable. Fish And Wildlife Biologist sections of the resection margins are submitted in cassette A. CONTINUED ON NEXT PAGE R UN DATE: 09/01/22 [facility] PAGE 3 RUN TIME: 1120 Specimen Inquiry RUN USER: INTERFACE S PEC #: [id number] PATIENT: KARMA ROWLAND #[id number] (Continued) GROSS DESCRIPTION (Continued) Fish And Wildlife Biologist sections of the gangrenous tissue are submitted in cassette B. Fish And Wildlife Biologist sections of the vasculature are submitted in cassette C. Technical component performed at [facility],[address] [place] [address], [place] [address] Unless gross only, the diagnosis is based [...] ---- Signed SIGNATURE ON FILE Chase Crane 09/01/220 END OF REPORT GLUCOSE [id number] 11:15:00* Test Item Value Reference Range Interpretation Comme [facility] GLUCOSE BEDSIDE (test code = GLUBED) 118 MG/DL 70-110 H Performed by ruel arce at [facility] COVID 19 Asymptomatic IH [id number] 09:45:00* Test Item Value Reference Range Interpretation Comme [facility] COVID 19 Asymptomatic IH AG (test code [...] perform moderate, high or waivedcomplexity tests. GLUCOSE [id number] 07:16:00* Test Item Value Reference Range Interpretation Comme nts GLUCOSE BEDSIDE (test code = GLUBED) 145 MG/DL 70-110 H Performed by cer tified plastic welding machine operator at [facility] CREATINE KINASE (CK)2022-09-01 05:19:00* Test Item Value Reference Range Interpretation Comme nts CREATINE KINASE (CK) (test c ode = CK) 79 Units/L 46-171 N GLUCOSE [id number] 19:34:00* Test Item Value Reference Range Interpretation Comme nts GLUCOSE BEDSIDE (test code = GLUBED) 176 MG/DL 70-110 H Performed by cer tified plastic welding machine operator at [facility] HGB [id number] 18:22:00* Test Item Value Reference Range Interpretation Comme nts HEMOGLOBIN (test code = HGB) 9.1 g/dL 12.5-16.9 L HEMATOCRIT (test code = HCT) 28.2 % 37.5-50.7 L GLUCOSE [id number] 16:31:00* Test Item Value Reference Range Interpretation Comme nts GLUCOSE BEDSIDE (test code = GLUBED) 163 MG/DL 70-110 H Performed by cer tified plastic welding machine operator at [facility] GLUCOSE [id number] 12:53:00* Test Item Value Reference Range Interpretation Comme nts GLUCOSE BEDSIDE (test code = GLUBED) 76 MG/DL 70-110 N Performed by cer tified plastic welding machine operator at [facility] GLUCOSE [id number] 12:20:00* Test Item Value Reference Range Interpretation Comme nts GLUCOSE BEDSIDE (test code = GLUBED) 44 MG/DL 70-110 L Performed by cer tified plastic welding machine operator at [facility] CBC W/AUTO [id number] 07:49:00* Test Item Value Reference Range Interpretation [...] c ode = MDIFF) NO BASIC METABOLIC [id number] 07:34:00* Test Item Value Reference Range Interpretation [...] = CA) 7.2 mg/dL 8.0-10.5 L GLUCOSE [id number] 07:31:00* Test Item Value Reference Range Interpretation Comme nts GLUCOSE BEDSIDE (test code = GLUBED) 110 MG/DL 70-110 N Performed by cer tified plastic welding machine operator at [facility] GLUCOSE [id number] 20:49:00* Test Item Value Reference Range Interpretation Comme nts GLUCOSE BEDSIDE (test code = GLUBED) 140 MG/DL 70-110 H Performed by cer tified plastic welding machine operator at [facility] GLUCOSE [id number] 17:11:00* Test Item Value Reference Range Interpretation Comme nts GLUCOSE BEDSIDE (test code = GLUBED) 109 MG/DL 70-110 N Performed by cer tified plastic welding machine operator at [facility] GLUCOSE [id number] 12:35:00* Test Item Value Reference Range Interpretation Comme nts GLUCOSE BEDSIDE (test code = GLUBED) 81 MG/DL 70-110 N Performed by cer tified plastic welding machine operator at [facility] GLUCOSE [id number] 08:38:00* Test Item Value Reference Range Interpretation Comme nts GLUCOSE BEDSIDE (test code = GLUBED) 83 MG/DL 70-110 N Performed by cer 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 at [facility] BASIC METABOLIC [id number] 06:17:00* Test Item Value Reference Range Interpretation [...] code = CA) 7.3 mg/dL 8.0-10.5 L [id number] 06:17:00* Test Item Value Reference Range Interpretation Comme nts PHOSPHOROUS (test code = PHOS) 4.6 MG/DL 2.5-4.9 N [id number] 06:17:00* Test Item Value Reference Range Interpretation Comme nts MAGNESIUM (test code = MAG) 2.01 mg/dL 1.80-2.40 N CBC W/AUTO [id number] 06:07:00* Test Item Value Reference Range Interpretation [...] (test c ode = MDIFF) NO GLUCOSE [id number] 20:22:00* Test Item Value Reference Range Interpretation Comme nts GLUCOSE BEDSIDE (test code = GLUBED) 81 MG/DL 70-110 N Performed by cer tified plastic welding machine operator at [facility] GLUCOSE [id number] 17:07:00* Test Item Value Reference Range Interpretation Comme nts GLUCOSE BEDSIDE (test code = GLUBED) 157 MG/DL 70-110 H Performed by cer tified plastic welding machine operator at [facility] [id number] 11:37:00* Test Item Value Reference Range Interpretation Comme nts PREALBUMIN (test code = PREALB) < 5.0 mg/dL 16.0-40.0 L GLUCOSE [id number] 10:52:00* Test Item Value Reference Range Interpretation Comme nts GLUCOSE BEDSIDE (test code = GLUBED) 105 MG/DL 70-110 N Performed by cer tified plastic welding machine operator at [facility] GLUCOSE [id number] 09:23:00* Test Item Value Reference Range Interpretation Comme nts GLUCOSE BEDSIDE (test code = GLUBED) 70 MG/DL 70-110 N Performed by cer tified plastic welding machine operator at [facility] GLUCOSE [id number] 08:54:00* Test Item Value Reference Range Interpretation Comme nts GLUCOSE BEDSIDE (test code = GLUBED) 70 MG/DL 70-110 N Performed by cer tified plastic welding machine operator at [facility] BASIC METABOLIC [id number] 06:45:00* Test Item Value Reference Range Interpretation [...] code = CA) 7.2 mg/dL 8.0-10.5 L [id number] 06:45:00* Test Item Value Reference Range Interpretation Comme nts PHOSPHOROUS (test code = PHOS) 5.2 MG/DL 2.5-4.9 H [id number] 06:45:00* Test Item Value Reference Range Interpretation Comme nts MAGNESIUM (test code = MAG) 1.91 mg/dL 1.80-2.40 N CBC W/AUTO [id number] 05:47:00* Test Item Value Reference Range Interpretation [...] REQUIRED (test code = MDIFF) NO GLUCOSE [id number] 20:27:00* Test Item Value Reference Range Interpretation Comme nts GLUCOSE BEDSIDE (test code = GLUBED) 145 MG/DL 70-110 H Performed by cer tified plastic welding machine operator at [facility] GLUCOSE [id number] 17:21:00* Test Item Value Reference Range Interpretation Comme nts GLUCOSE BEDSIDE (test code = GLUBED) 103 MG/DL 70-110 N Performed by cer tified plastic welding machine operator at [facility] [id number] 13:39:00* Test Item Value Reference Range Interpretation Comme nts SURGICAL (test code = SR) R UN DATE: 08/28/22 [facility] - [facility] PAGE 1 RUN TIME: 1339 Specimen Inquiry RUN USER: INTERFACE P ATIENT: KARMA ROWLAND LOC: [facility] U #: [id number] AGE/SX: 56/M ROOM: [facility] RE08/18/22REG DR: Wilbert Ramires MD : 61 BED: 1 DIS: STATUS: ADM IN TLOC: SPEC #: [id number] RECD: 08/27/22-1015 STATUS: JC REQ #: [id number] JULIENNE: 08/26/22- SUBM DR: David Du MD ENTERED: 08/27/22-1017 SP TYPE: SURGICAL OTHR DR: No Primary or Family Physician Self Referred Anthony Curtis MD,Andrew J MD Kali,David T MD LeroyNixon mcconnell MD, Kuldip K MD Patel, Snehalkumar A MD Reyhani, Sean X DPM YoIn Hal MDORDERED: [id number], ANATOMIC SPEC COPIES TO: No Primary or Family [place] [address] [facility] [address] [place] [address] Andrew London MD [address] [place], [place] [address] [place] [address] David Du MD [address] [facility] [address] [place] [id number] Nixon Leroy MD [address] [place] [address] Braxton Chapin MD [address] [facility] [address] [place] [address] CONTINUED ON NEXT PAGE R UN DATE: 08/28/22 [facility] PAGE 2 RUN TIME: 1339 Specimen Inquiry RUN USER: INTERFACE S PEC #: [id number] PATIENT: KARMA ROWLAND #[id number] (Continued) COPIES TO: (Continued) Napoleon Parham MD [address] [facility], [address] [address] JorgeLiam pena DPM [address] [facility], [address] [address] [email or web address] Forrest Oswald MD [address] [place] [address] [address] [place] [address] PROCEDURES: [id number] (08/27/22) TISSUES: A. CHIPS - PROSTATE TURP CLINICAL HISTORY SAME FINAL DIAGNOSIS Prostate chips, submitted: Fragments of fibromuscular tissue with abundant acute andchronic inflammation and some necrotic debris; background benign appearing prostate tissue. GROSS DESCRIPTION Received in formalin labeled prostate chips multiple yellow-bajwa tissue fragments weighing1.5 g and measuring 2 cm in aggregate submitted (A)-(B). Technical component performed at [facility],[address] [place] [address], [place] [address] Unless gross only, the diagnosis is based [...] ON NEXT PAGE R UN DATE: 08/28/22 [facility] - [facility] PAGE 3 RUN TIME: 1339 Specimen Inquiry RUN USER: INTERFACE S GLENROY #: [id number] PATIENT: KARMA ROWLAND #[id number] (Continued) CLINICAL INFORMATION PROSTATE ABSCESS ------ Signed SIGNATURE ON IESHA aPtinoWilfrid 08/28/22 1339 END OF REPORT GLUCOSE [id number] 13:14:00* Test Item Value Reference Range Interpretation Comme [facility] GLUCOSE BEDSIDE (test code = GLUBED) 206 MG/DL 70-110 H Performed by cer tifBomoda plastic welding machine operator at [facility] GLUCOSE [id number] 12:29:00* Test Item Value Reference Range Interpretation Comme [facility] GLUCOSE BEDSIDE (test code = GLUBED) 185 MG/DL 70-110 H Performed by cer tified plastic welding machine operator at [facility] GLUCOSE [id number] 06:34:00* Test Item Value Reference Range Interpretation Comme nts GLUCOSE BEDSIDE (test code = GLUBED) 180 MG/DL 70-110 H Performed by ruel hameed plastic welding machine operator at [facility] COMPREHENSIVE METABOLIC [id number] 05:30:00* Test Item Value Reference Range Interpretation [...] code = ALKP) 111 IUnit/L 20-125 N [id number] 05:30:00* Test Item Value Reference Range Interpretation Comme nts PHOSPHOROUS (test code = PHOS) 4.8 MG/DL 2.5-4.9 N [id number] 05:30:00* Test Item Value Reference Range Interpretation Comme nts MAGNESIUM (test code = MAG) 1.89 mg/dL 1.80-2.40 N CALCIUM [id number] 05:30:00* Test Item Value Reference Range Interpretation Comme nts CALCIUM IONIZED (test code = KARLA) 1.12 MMOL/L 1.09-1.30 N CBC W/AUTO [id number] 04:46:00* Test Item Value Reference Range Interpretation [...] = MDIFF) NO - XR FLUOROSCOPY 0-60 [id number] 00:00:00 [facility] LAKEName: KARMA ROWLAND : 1965 Sex: MFAX: Wilbert Krause MD [phone] [place]: [address]: ADM Name: KARMA ROWLAND [facility] : 1965 Age/S: 56/M [address] [place] [address] Unit #: [id number] Loc: G.[address] [place] [address] Phys: Wilbert Ramires [facility] [id number] Dis Date: Status: ADM IN PHONE #: [phone] Exam Date: 08/28/2022 1101 FAX #:[phone] Reason: RIGHT TIBFIB AMP EXAMS: CPT CODE: [id number] XR FLUOROSCOPY 0-60 MIN 32362 PROCEDURE INFORMATION: Exam: FL Fluoroscopy, Up to 1 Hour Physician Time; Radiologist Not Present For Fluoroscopy Exam date and time: 08/28/2022 10:51 AM Age: 56 years old Clinical indication: Pain; Pain: Or; Additional info: Right tibfib amp TECHNIQUE: Imaging protocol: Fluoroscopy , up to 1 hour physician or other qualified health senior care provider time. This radiologist did not supervise this [...] S: 08/28/2022 (1120) PAGE 1 Signed Report- [facility]/[id number] 00:00:00 [facility] JACE NEVAREZName: KARMA ROWLAND : 1965 Sex: MName: KARMA ROWLAND [facility] : 1965 Age/S: 56 / M [address] [place] [address] Unit #: [id number] Loc: [place] [address] Phys: Wilbert Ramires MD Acct: [id number] Dis Date: Status: ADM IN PHONE #: [phone] Exam Date: 08/28/2022 0857 FAX #: [phone] Reason: Left leg swelling EXAMS: CPT CODE: [id number] DUP VEIN UNI/LTD 70581 PROCEDURE INFORMATION: Exam: US Duplex Left LowerExtremity [...] calf probably representing a small hematoma. at 09 Reported and signed by: Roger Parra M.D. CC: Wilbert Ramires MD Technologist: Dave Gaines Trnscb Date/Time: 08/28/2022 (926) HollyR.[email or web address] Orig Print D/T: S: 08/28/2022 (926) Probe: PAGE 1 Signed ReportGLUCOSE [id number] 21:01:00* Test Item Value Reference Range Interpretation Comme nts GLUCOSE BEDSIDE (test code = GLUBED) 87 MG/DL 70-110 N Performed by ruel hameed plastic welding machine operator at [facility] BASIC METABOLIC [id number] 19:03:00* Test Item Value Reference Range Interpretation [...] = CA) 7.5 mg/dL 8.0-10.5 L GLUCOSE [id number] 17:42:00* Test Item Value Reference Range Interpretation Comme nts GLUCOSE BEDSIDE (test code = GLUBED) 148 MG/DL 70-110 H Performed by cer tified plastic welding machine operator at [facility] GLUCOSE [id number] 14:51:00* Test Item Value Reference Range Interpretation Comme nts GLUCOSE BEDSIDE (test code = GLUBED) 244 MG/DL 70-110 H Performed by cer tified plastic welding machine operator at [facility] GLUCOSE [id number] 08:35:00* Test Item Value Reference Range Interpretation Comme nts GLUCOSE BEDSIDE (test code = GLUBED) 294 MG/DL 70-110 H Performed by cer tified plastic welding machine operator at [facility] COMPREHENSIVE METABOLIC [id number] 06:21:00* Test Item Value Reference Range Interpretation [...] 111 IUnit/L 20-125 N . Recollection is necessary.[id number] 06:21:00* Test Item Value Reference Range Interpretation Comme nts PHOSPHOROUS (test code = PHOS) 5.4 MG/DL 2.5-4.9 H . Recollection is necessary.[id number] 06:21:00* Test Item Value Reference Range Interpretation Comme nts MAGNESIUM (test code = MAG) 1.94 mg/dL 1.80-2.40 N . Recollection is necessary.COMPREHENSIVE METABOLIC [id number] 04:43:00* Test Item Value Reference Range Interpretation [...] ( test code = ALKP) IUnit/L 20-125 [id number] 04:43:00* Test Item Value Reference Range Interpretation Comme nts PHOSPHOROUS (test code = PHOS) MG/DL 2.5-4.9 [id number] 04:43:00* Test Item Value Reference Range Interpretation Comme nts MAGNESIUM (test code = MAG) mg/dL 1.80-2.40 CALCIUM [id number] 04:43:00* Test Item Value Reference Range Interpretation Comme nts CALCIUM IONIZED (test code = KARLA) 1.08 MMOL/L 1.09-1.30 L CBC W/AUTO [id number] 04:43:00* Test Item Value Reference Range Interpretation [...] REQUIRED (test code = MDIFF) NO GLUCOSE [id number] 00:32:00* Test Item Value Reference Range Interpretation Comme nts GLUCOSE BEDSIDE (test code = GLUBED) 166 MG/DL 70-110 H Performed by cer tified plastic welding machine operator at [facility] GLUCOSE [id number] 20:52:00* Test Item Value Reference Range Interpretation Comme nts GLUCOSE BEDSIDE (test code = GLUBED) 148 MG/DL 70-110 H Performed by cer tified plastic welding machine operator at [facility] GLUCOSE [id number] 17:53:00* Test Item Value Reference Range Interpretation Comme nts GLUCOSE BEDSIDE (test code = GLUBED) 169 MG/DL 70-110 H Performed by cer tified plastic welding machine operator at [facility] GLUCOSE [id number] 09:17:00* Test Item Value Reference Range Interpretation Comme nts GLUCOSE BEDSIDE (test code = GLUBED) 163 MG/DL 70-110 H Performed by cer tified plastic welding machine operator at [facility] COMPREHENSIVE METABOLIC [id number] 06:16:00* Test Item Value Reference Range Interpretation [...] code = ALKP) 149 IUnit/L 20-125 H [id number] 06:16:00* Test Item Value Reference Range Interpretation Comme nts PHOSPHOROUS (test code = PHOS) 4.6 MG/DL 2.5-4.9 N [id number] 06:16:00* Test Item Value Reference Range Interpretation Comme nts MAGNESIUM (test code = MAG) 1.89 mg/dL 1.80-2.40 N CALCIUM [id number] 06:16:00* Test Item Value Reference Range Interpretation Comme nts CALCIUM IONIZED (test code = KARLA) 1.11 MMOL/L 1.09-1.30 N CBC W/AUTO [id number] 05:58:00* Test Item Value Reference Range Interpretation [...] REQUIRED (test code = MDIFF) NO GLUCOSE [id number] 20:19:00* Test Item Value Reference Range Interpretation Comme nts GLUCOSE BEDSIDE (test code = GLUBED) 113 MG/DL 70-110 H Performed by cer tified plastic welding machine operator at [facility] GLUCOSE [id number] 17:34:00* Test Item Value Reference Range Interpretation Comme nts GLUCOSE BEDSIDE (test code = GLUBED) 132 MG/DL 70-110 H Performed by cer tified plastic welding machine operator at [facility] UA RFLX MICR CULT IF [id number] 11:42:00* Test Item Value Reference Range Interpretation [...] ode = CK) 17 Units/L 46-171 L [id number] 11:39:00* Test Item Value Reference Range Interpretation Comme nts POTASSIUM (test code = K) 4.5 mEq/L 3.4-5.0 N GLUCOSE [id number] 11:22:00* Test Item Value Reference Range Interpretation Comme nts GLUCOSE BEDSIDE (test code = GLUBED) 143 MG/DL 70-110 H Performed by cer tified plastic welding machine operator at [facility] [facility] COMPREHENSIVE METABOLIC [id number] 08:57:00* Test Item Value Reference Range Interpretation [...] code = ALKP) 159 IUnit/L 20-125 H [id number] 08:57:00* Test Item Value Reference Range Interpretation Comme nts PHOSPHOROUS (test code = PHOS) 4.5 MG/DL 2.5-4.9 N [id number] 08:57:00* Test Item Value Reference Range Interpretation Comme nts MAGNESIUM (test code = MAG) 1.88 mg/dL 1.80-2.40 N CALCIUM [id number] 08:57:00* Test Item Value Reference Range Interpretation Comme nts CALCIUM IONIZED (test code = KARLA) 0.96 MMOL/L 1.09-1.30 L CBC W/AUTO [id number] 08:25:00* Test Item Value Reference Range Interpretation [...] REQUIRED (test code = MDIFF) NO GLUCOSE [id number] 07:56:00* Test Item Value Reference Range Interpretation Comme [facility] GLUCOSE BEDSIDE (test code = GLUBED) 166 MG/DL 70-110 H Performed by cer tified plastic welding machine operator at [facility] GLUCOSE [id number] 21:55:00* Test Item Value Reference Range Interpretation Comme nts GLUCOSE BEDSIDE (test code = GLUBED) 140 MG/DL 70-110 H Performed by cer tified plastic welding machine operator at [facility] GLUCOSE [id number] 17:59:00* Test Item Value Reference Range Interpretation Comme nts GLUCOSE BEDSIDE (test code = GLUBED) 136 MG/DL 70-110 H Performed by cer tified plastic welding machine operator at [facility] [id number] 17:29:00* Test Item Value Reference Range Interpretation Comme nts VANCOMYCIN (test code = VANCO) 9.6 mcg/mL GLUCOSE [id number] 12:11:00* Test Item Value Reference Range Interpretation Comme nts GLUCOSE BEDSIDE (test code = GLUBED) 129 MG/DL 70-110 H Performed by cer tified plastic welding machine operator at [facility] GLUCOSE [id number] 08:28:00* Test Item Value Reference Range Interpretation Comme nts GLUCOSE BEDSIDE (test code = GLUBED) 195 MG/DL 70-110 H Performed by cer tified plastic welding machine operator at [facility] CBC W/AUTO [id number] 07:32:00* Test Item Value Reference Range Interpretation [...] (test code = MDIFF) NO COMPREHENSIVE METABOLIC [id number] 07:09:00* Test Item Value Reference Range Interpretation [...] code = ALKP) 176 IUnit/L 20-125 H [id number] 07:09:00* Test Item Value Reference Range Interpretation Comme nts PHOSPHOROUS (test code = PHOS) 4.1 MG/DL 2.5-4.9 N [id number] 07:09:00* Test Item Value Reference Range Interpretation Comme nts MAGNESIUM (test code = MAG) 1.80 mg/dL 1.80-2.40 N CALCIUM [id number] 07:09:00* Test Item Value Reference Range Interpretation Comme nts CALCIUM IONIZED (test code = KARLA) 1.09 MMOL/L 1.09-1.30 N GLUCOSE [id number] 03:18:00* Test Item Value Reference Range Interpretation Comme nts GLUCOSE BEDSIDE (test code = GLUBED) 189 MG/DL 70-110 H Performed by ruel hameed plastic welding machine operator at [facility] GLUCOSE [id number] 21:11:00* Test Item Value Reference Range Interpretation Comme nts GLUCOSE BEDSIDE (test code = GLUBED) 161 MG/DL 70-110 H Performed by ruel fordied plastic welding machine operator at [facility] GLUCOSE [id number] 19:43:00* Test Item Value Reference Range Interpretation Comme nts GLUCOSE BEDSIDE (test code = GLUBED) 146 MG/DL 70-110 H Performed by cer tified plastic welding machine operator at [facility] GLUCOSE [id number] 16:31:00* Test Item Value Reference Range Interpretation Comme nts GLUCOSE BEDSIDE (test code = GLUBED) 126 MG/DL 70-110 H Performed by cer tified plastic welding machine operator at [facility] GLUCOSE [id number] 13:36:00* Test Item Value Reference Range Interpretation Comme nts GLUCOSE BEDSIDE (test code = GLUBED) 102 MG/DL 70-110 N Performed by cer tified plastic welding machine operator at [facility] GLUCOSE [id number] 12:40:00* Test Item Value Reference Range Interpretation Comme nts GLUCOSE BEDSIDE (test code = GLUBED) 67 MG/DL 70-110 L Performed by cer tified plastic welding machine operator at [facility] CBC W/AUTO [id number] 11:30:00* Test Item Value Reference Range Interpretation [...] (test c ode = MDIFF) YES WBC [id number] 11:30:00* Test Item Value Reference Range Interpretation [...] POLYCHROMASIA (test code = POLC) 1+ GLUCOSE [id number] 08:23:00* Test Item Value Reference Range Interpretation Comme nts GLUCOSE BEDSIDE (test code = GLUBED) 120 MG/DL 70-110 H Performed by cer tified plastic welding machine operator at [facility] COMPREHENSIVE METABOLIC [id number] 03:59:00* Test Item Value Reference Range Interpretation [...] code = ALKP) 163 IUnit/L 20-125 H [id number] 03:59:00* Test Item Value Reference Range Interpretation Comme nts PHOSPHOROUS (test code = PHOS) 4.7 MG/DL 2.5-4.9 [id number] 03:59:00* Test Item Value Reference Range Interpretation Comme nts MAGNESIUM (test code = MAG) 1.71 mg/dL 1.80-2.40 L CALCIUM [id number] 03:59:00* Test Item Value Reference Range Interpretation Comme nts CALCIUM IONIZED (test code = KARLA) 1.06 MMOL/L 1.09-1.30 L [id number] 03:54:00* Test Item Value Reference Range Interpretation Comme nts VANCOMYCIN (test code = VANCO) 15.3 mcg/mL GLUCOSE [id number] 19:53:00* Test Item Value Reference Range Interpretation Comme nts GLUCOSE BEDSIDE (test code = GLUBED) 163 MG/DL 70-110 H Performed by cer tified plastic welding machine operator at [facility] GLUCOSE [id number] 16:45:00* Test Item Value Reference Range Interpretation Comme nts GLUCOSE BEDSIDE (test code = GLUBED) 146 MG/DL 70-110 H Performed by cer tified plastic welding machine operator at [facility] GLUCOSE [id number] 11:58:00* Test Item Value Reference Range Interpretation Comme nts GLUCOSE BEDSIDE (test code = GLUBED) 92 MG/DL 70-110 N Performed by cer tified plastic welding machine operator at [facility] [id number] 09:36:00* Test Item Value Reference Range Interpretation Comme nts VANCOMYCIN (test code = VANCO) 19.7 mcg/mL GLUCOSE [id number] 07:58:00* Test Item Value Reference Range Interpretation Comme nts GLUCOSE BEDSIDE (test code = GLUBED) 76 MG/DL 70-110 N Performed by cer tified plastic welding machine operator at [facility] CBC W/AUTO [id number] 06:22:00* Test Item Value Reference Range Interpretation [...] 0.00 x10 3/uL 0.0-0.1 N COMPREHENSIVE METABOLIC [id number] 06:10:00* Test Item Value Reference Range Interpretation [...] code = ALKP) 171 IUnit/L 20-125 H [id number] 06:10:00* Test Item Value Reference Range Interpretation Comme nts PHOSPHOROUS (test code = PHOS) 3.4 MG/DL 2.5-4.9 [id number] 06:10:00* Test Item Value Reference Range Interpretation Comme nts MAGNESIUM (test code = MAG) 1.70 mg/dL 1.80-2.40 L CALCIUM [id number] 06:10:00* Test Item Value Reference Range Interpretation Comme nts CALCIUM IONIZED (test code = KARLA) 1.00 MMOL/L 1.09-1.30 L - MRI PELVIS W/O [id number] 00:00:00 [facility] [place] [place]AR[place] : 1965 Sex: MFAX: Wilbert Krause MD [phone] [place]: St: ADM FAX: Y David Du MD [phone] --- Name: ESTELA ROWLAND [place] : 1965 Age/S: 56/M [address] [place] [address] Unit #: [id number] Loc: G.M[address] [place] [address] Phys: David Du MD Acct: [id number] Dis Date: Status: ADM IN PHONE #: Exam Date: 08/21/20222115 FAX #: [phone] Reason: assess for prostate abscess vs lesion EXAMS: CPT CODE: [id number] MRI PELVIS W/O CON 35110 PROCEDURE INFORMATION: Exam: MR Pelvis Without Contrast [...] 4.5 x 3.6 x 3.5 cm (29 cc)with the left posterolateral peripheral zone inseparable from [...] by motion artifact abdominal breathing, severely lowering sensitivityand specificity of the study. 2. Roughly 4.7 [...] Signed Report (CONTINUED) FAX: Wilbert Krause MD [phone] [place]: St: ADM FAX: David Colvin MD [phone] Name: KARMA ROWLAND [facility] : 1965 Age/S: 56/M [address] [place] [address] Unit #: [id number] Loc: .25 [place] [address] Phys: David Hernandez MD Acct: [id number] Dis Date: Status: ADM IN PHONE #: [phone] Exam Date: 08/21/20222115 FAX #: [phone] Reason: assess for prostate abscess vs lesion EXAMS: CPT CODE: [id number] MRI PELVIS W/O CON 07834 (Continued) Electronically Signed by Jennifer Wakefield on 08/22/2022 at 0830 Reported and signed by: Cezar Wakefield M.D. CC: Wilbert Ramires MD; David Du MD Technologist: RT Haile(R)(CT) [facility] Date/Time/By: 08/22/2022 (829): By: [email or web address] Orig Print D/T: S: 08/22/2022 (829) PAGE 2 Signed ReportVANCOMYCIN [id number] 21:01:00* Test Item Value Reference Range Interpretation [...] MG/DL 70-110 H Performed by cer tified plastic welding machine operator at [facility] GLUCOSE [id number] 16:36:00* Test Item Value Reference Range Interpretation Comme nts GLUCOSE BEDSIDE (test code = GLUBED) 104 MG/DL 70-110 N Performed by cer tified plastic welding machine operator at [facility] GLUCOSE [id number] 14:51:00* Test Item Value Reference Range Interpretation Comme nts GLUCOSE BEDSIDE (test code = GLUBED) > 600 MG/DL 70-110 H Performed b y certified plastic welding machine operator at [facility] VANCOMYCIN [id number] 13:52:00* Test Item Value Reference Range Interpretation Comme nts VANCOMYCIN PEAK (test code = VANCP) 30.7 MCG/ML 30-40 N GLUCOSE [id number] 12:23:00* Test Item Value Reference Range Interpretation Comme nts GLUCOSE BEDSIDE (test code = GLUBED) 597 MG/DL 70-110 H Performed by cer tified plastic welding machine operator at [facility] GLUCOSE [id number] 11:20:00* Test Item Value Reference Range Interpretation Comme nts GLUCOSE BEDSIDE (test code = GLUBED) 96 MG/DL 70-110 N Performed by cer tified plastic welding machine operator at [facility] GLUCOSE [id number] 08:13:00* Test Item Value Reference Range Interpretation Comme nts GLUCOSE BEDSIDE (test code = GLUBED) 123 MG/DL 70-110 H Performed by cer tified plastic welding machine operator at [facility] CBC W/AUTO [id number] 06:04:00* Test Item Value Reference Range Interpretation [...] (test c ode = MDIFF) YES WBC [id number] 06:04:00* Test Item Value Reference Range Interpretation [...] code = PLTMORPH) LARGE PLATELETS COMPREHENSIVE METABOLIC [id number] 05:23:00* Test Item Value Reference Range Interpretation [...] code = ALKP) 172 IUnit/L 20-125 H [id number] 05:23:00* Test Item Value Reference Range Interpretation Comme nts PHOSPHOROUS (test code = PHOS) 2.6 MG/DL 2.5-4.9 N [id number] 05:23:00* Test Item Value Reference Range Interpretation Comme nts MAGNESIUM (test code = MAG) 1.65 mg/dL 1.80-2.40 L CALCIUM [id number] 05:23:00* Test Item Value Reference Range Interpretation Comme nts CALCIUM IONIZED (test code = KARLA) 1.02 MMOL/L 1.09-1.30 L - MRI LOW EXT W/O CONT [id number] 00:00:00 [facility] 1965 Sex: M FAX: Wilbert Krause MD [phone] [place]: St: [facility] FAX: Andrew London MD Name: KARMA ROWLAND [facility] : 1965 Age/S: 56/M [address] [place] [address] Unit #: [id number] Loc: [address] [place] [address] Phys: Andrew London MD Acct: [id number] Dis Date: Status: ADM IN PHONE #: [phone] Exam Date: 08/21/20222115 FAX #: [phone] Reason: osteomyelitis EXAMS: CPT CODE: [id number] MRI LOW EXT W/[place] [address] PROCEDURE INFORMATION: Exam: MR Right Lower Extremity [...] Moderate-severe inflammatory signal of the circumferential soft tissuesabout the ankle extending along the dorsum of the foot is seen. Dorsal skin blister of the forefootis seen measuring approximately 1.2 x 1.9 x [...] Signed Report (CONTINUED) FAX: Wilbert Krause MD [phone] [place]: GC St: ADM FAX: Andrew London MD Name: KARMA ROWLAND [facility] : 1965 Age/S:56/M [address] [place] [address] Blvd Unit #: [id number] Loc: G[address] [place] [address] Phys: Andrew London [id number] Dis Date: Status: ADM IN PHONE #: [phone] Exam Date: 08/21/20222115 FAX #:[phone] Reason: osteomyelitis EXAMS: CPT CODE: [id number] MRI L[place] EXT W/[place] [address] (Continued) CC: Wilbert Ramires MD; Andrew London MD Technologist: RT Haile(R)(CT) [facility] Date/Time/By: 08/21/2022 (1358) : By: [email or web address] Orig Print D/T: S: 08/21/2022 (1354) PAGE 2 Signed ReportVANCOMYCIN [id number] 23:25:00* Test Item Value Reference Range Interpretation Comme nts VANCOMYCIN PEAK (test code = VANCP) 36.0 MCG/ML 30-40 N COMMENTS: Please draw one hour AFTER THE END of vancomycin infusionGLUCOSE [id number] 21:23:00* Test Item Value Reference Range Interpretation Comme nts GLUCOSE BEDSIDE (test code = GLUBED) 123 MG/DL 70-110 H Performed by cer tifBomoda plastic welding machine operator at [facility] GLUCOSE [id number] 16:48:00* Test Item Value Reference Range Interpretation Comme nts GLUCOSE BEDSIDE (test code = GLUBED) 201 MG/DL 70-110 H Performed by [employer] plastic welding machine operator at [facility] COMPREHENSIVE METABOLIC [id number] 14:38:00* Test Item Value Reference Range Interpretation [...] code = ALKP) 178 IUnit/L 20-125 H [id number] 14:38:00* Test Item Value Reference Range Interpretation Comme nts PHOSPHOROUS (test code = PHOS) 3.4 MG/DL 2.5-4.9 N [id number] 14:38:00* Test Item Value Reference Range Interpretation Comme nts MAGNESIUM (test code = MAG) 2.05 mg/dL 1.80-2.40 N CALCIUM [id number] 14:38:00* Test Item Value Reference Range Interpretation Comme nts CALCIUM IONIZED (test code = KARLA) 1.04 MMOL/L 1.09-1.30 L GLUCOSE [id number] 11:18:00* Test Item Value Reference Range Interpretation Comme nts GLUCOSE BEDSIDE (test code = GLUBED) 173 MG/DL 70-110 H Performed by cer 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 at [facility] CBC W/AUTO [id number] 11:03:00* Test Item Value Reference Range Interpretation [...] NRBC#) 0.00 x10 3/uL 0.0-0.1 N GLUCOSE [id number] 08:10:00* Test Item Value Reference Range Interpretation Comme nts GLUCOSE BEDSIDE (test code = GLUBED) 206 MG/DL 70-110 H Performed by cer tified plastic welding machine operator at [facility] GLUCOSE [id number] 06:40:00* Test Item Value Reference Range Interpretation Comme nts GLUCOSE BEDSIDE (test code = GLUBED) 198 MG/DL 70-110 H Performed by cer tified plastic welding machine operator at [facility] GLUCOSE [id number] 03:14:00* Test Item Value Reference Range Interpretation Comme nts GLUCOSE BEDSIDE (test code = GLUBED) 191 MG/DL 70-110 H Performed by cer tified plastic welding machine operator at [facility] PSA TOTAL/[id number] 03:08:00* Test Item Value Reference Range Interpretation Comme nts PSA FREE (test code = PSAF) 0.04 ng/mL N/A Bassem ECLIA meth odology. PSA TOTAL (test code = PSAT) 0.9 ng/mL 0.0-4.0 Bassem ECLIA methodology.According to the [place] [employer], Serum PSAshould decrease and remain [...] for any other population of men.Performed At: [facility] [address] [id number] Savage Castro MD Ph:[phone] [Automated message] The system which generated this result transmitted reference range: (). The reference range was not used to interpret this result as normal/abnormal. RENAL FUNCTION [id number] 01:04:00* Test Item Value Reference Range Interpretation [...] gap </= 12 mEq/L, then every morning [id number] 01:04:00* Test Item Value Reference Range Interpretation Comme nts MAGNESIUM (test code = MAG) 2.09 mg/dL 1.80-2.40 N COMMENTS: Every 6 hours until anion gap </= 12 mEq/L, then every morningHGB HCT 2022-08-19 23:52:00* Test Item Value Reference Range Interpretation Comme nts HEMOGLOBIN (test code = HGB) 7.0 g/dL 12.5-16.9 L HEMATOCRIT (test code = HCT) 21.8 % 37.5-50.7 L GLUCOSE [id number] 23:02:00* Test Item Value Reference Range Interpretation Comme nts GLUCOSE BEDSIDE (test code = GLUBED) 209 MG/DL 70-110 H Performed by cer tified plastic welding machine operator at [facility] GLUCOSE [id number] 20:27:00* Test Item Value Reference Range Interpretation Comme nts GLUCOSE BEDSIDE (test code = GLUBED) 218 MG/DL 70-110 H Performed by cer tified plastic welding machine operator at [facility] CBC W/AUTO [id number] 17:47:00* Test Item Value Reference Range Interpretation [...] NRBC#) 0.00 x10 3/uL 0.0-0.1 N GLUCOSE [id number] 17:38:00* Test Item Value Reference Range Interpretation Comme nts GLUCOSE BEDSIDE (test code = GLUBED) 219 MG/DL 70-110 H Performed by cer 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 at [facility] RENAL FUNCTION [id number] 17:21:00* Test Item Value Reference Range Interpretation [...] gap </= 12 mEq/L, then every morning [id number] 17:21:00* Test Item Value Reference Range Interpretation Comme nts MAGNESIUM (test code = MAG) 2.03 mg/dL 1.80-2.40 N COMMENTS: Every 6 hours until anion gap </= 12 mEq/L, then every morningUA RFLX MICR CULT IF [id number] 16:51:00* Test Item Value Reference Range Interpretation [...] culture: RiskForSepsis-no oth srcSpecimen Description: Clean CatchGLUCOSE [id number] 16:12:00* Test Item Value Reference Range Interpretation Comme nts GLUCOSE BEDSIDE (test code = GLUBED) 232 MG/DL 70-110 H Performed by cer tified plastic welding machine operator at [facility] GLUCOSE [id number] 15:20:00* Test Item Value Reference Range Interpretation Comme nts GLUCOSE BEDSIDE (test code = GLUBED) 307 MG/DL 70-110 H Performed by cer tified plastic welding machine operator at [facility] GLUCOSE [id number] 13:53:00* Test Item Value Reference Range Interpretation Comme nts GLUCOSE BEDSIDE (test code = GLUBED) 363 MG/DL 70-110 H Performed by cer tified plastic welding machine operator at [facility] GLUCOSE [id number] 12:46:00* Test Item Value Reference Range Interpretation Comme nts GLUCOSE BEDSIDE (test code = GLUBED) 326 MG/DL 70-110 H Performed by cer 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 at [facility] RENAL FUNCTION [id number] 11:45:00* Test Item Value Reference Range Interpretation [...] gap </= 12 mEq/L, then every morning [id number] 11:45:00* Test Item Value Reference Range Interpretation Comme nts MAGNESIUM (test code = MAG) 2.06 mg/dL 1.80-2.40 N COMMENTS: Every 6 hours until anion gap </= 12 mEq/L, then every morningB-TYPE NATRIURETIC [id number] 11:43:00* Test Item Value Reference Range Interpretation Comme [facility] B-TYPE NATRIURETIC PEPTIDE ( test code = BNP) 96.0 PG/ML 0-100 N VITAMIN [id number] 09:30:00* Test Item Value Reference Range Interpretation [facility] VITAMIN B12 (test code = VITB12) 5883 pg/mL 193-986 H FOLIC [id number] 09:30:00* Test Item Value Reference Range Interpretation [facility] FOLIC ACID (test code = FOL) 9.5 ng/mL 3.1-17.5 N [id number] 09:30:00* Test Item Value Reference Range Interpretation [facility] FERRITIN (test code = COLEMAN) 2429.2 ng/mL 23.9-336.2 H TOTAL IRON BINDING [id number] 09:30:00* Test Item Value Reference Range Interpretation [facility] SERUM IRON (test code = IRON) 8 mcg/dL 35-150 L TOTAL IRON BINDING CAPACITY (test code = TIBC) 148 mcg/dL 260-445 L UIBC (test code = UIBC) 140 mcg/dL IRON SATURATION (test code = FESAT) 5.4 % 14-34 L RENAL FUNCTION [id number] 09:05:00* Test Item Value Reference Range Interpretation [facility] SODIUM (test code = NA) 130 mEq/L [...] gap </= 12 mEq/L, then every morning [id number] 09:05:00* Test Item Value Reference Range Interpretation Comme nts MAGNESIUM (test code = MAG) 2.13 mg/dL 1.80-2.40 N COMMENTS: Every 6 hours until anion gap </= 12 mEq/L, then every morningGLUCOSE [id number] 08:16:00* Test Item Value Reference Range Interpretation Comme nts GLUCOSE BEDSIDE (test code = GLUBED) 292 MG/DL 70-110 H Performed by cer 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 at [facility] COMPREHENSIVE METABOLIC [id number] 05:28:00* Test Item Value Reference Range Interpretation [...] code = ALKP) 150 IUnit/L 20-125 H [id number] 05:28:00* Test Item Value Reference Range Interpretation Comme nts PHOSPHOROUS (test code = PHOS) 2.9 MG/DL 2.5-4.9 N [id number] 05:28:00* Test Item Value Reference Range Interpretation Comme nts MAGNESIUM (test code = MAG) 2.13 mg/dL 1.80-2.40 N GLUCOSE [id number] 05:23:00* Test Item Value Reference Range Interpretation Comme nts GLUCOSE BEDSIDE (test code = GLUBED) 332 MG/DL 70-110 H Performed by cer tified plastic welding machine operator at [facility] HGBA1C%2022-08-19 04:57:00* Test Item Value Reference Range Interpretation Comme nts HGBA1C% (test code = HGBA1C%) > 14.0 %A1C 4.8-6.0 H CBC W/AUTO [id number] 04:24:00* Test Item Value Reference Range Interpretation [...] 0.00 x10 3/uL 0.0-0.1 N COMPREHENSIVE METABOLIC [id number] 04:15:00* Test Item Value Reference Range Interpretation [...] ( test code = ALKP) IUnit/L 20-125 [id number] 04:15:00* Test Item Value Reference Range Interpretation Comme nts PHOSPHOROUS (test code = PHOS) MG/DL 2.5-4.9 [id number] 04:15:00* Test Item Value Reference Range Interpretation Comme nts MAGNESIUM (test code = MAG) mg/dL 1.80-2.40 CALCIUM [id number] 04:15:00* Test Item Value Reference Range Interpretation Comme nts CALCIUM IONIZED (test code = KARLA) 1.07 MMOL/L 1.09-1.30 L GLUCOSE [id number] 01:14:00* Test Item Value Reference Range Interpretation Comme nts GLUCOSE BEDSIDE (test code = GLUBED) 296 MG/DL 70-110 H Performed by cer tified plastic welding machine operator at [facility] - DUP LE ART UNI/[id number] 00:00:00 [facility] 1965 Sex: MName: KARMA ROWLAND [facility] [place] : 1965 Age/S: 56 / M [address] [place] [address] Blvd Unit #: [id number] Loc: [place] [address] Phys: Wilbert Ramires MD Acct: [id number] Dis Date: Status: ADM IN PHONE #: [phone] Exam Date: 08/19/2022 0950 FAX #: [phone] Reason: right LE gas gangrene EXAMS: CPT CODE: [id number] DUP LE ART UNI/LTD 86260 PROCEDURE INFORMATION: Exam: US Duplex Right Lower Extremity Arteries Or Arterial Bypass Grafts Exam date and time: 08/19/2022 9:25 AM Age: 56 years old Clinical indication: Condition or disease and screening exam; Pre op debridement; Other: Rle gas gangrene; Additional info: Right le gas gangrene TECHNIQUE: Imaging protocol: Right Real-timeduplex scan of the arteries or arterial bypass [...] MD Technologist: Ruth Phillips Trnscb Date/Time: 08/19/2022 (1056) Dilip.SG9 PAGE 1 Signed Report GLUCOSE [id number] 23:47:00* Test Item Value Reference Range Interpretation Comme nts GLUCOSE BEDSIDE (test code = GLUBED) 265 MG/DL 70-110 H Performed by cer tified plastic welding machine operator at [facility] RENAL FUNCTION [id number] 23:19:00* Test Item Value Reference Range Interpretation [...] gap </= 12 mEq/L, then every morning [id number] 23:19:00* Test Item Value Reference Range Interpretation Comme nts MAGNESIUM (test code = MAG) 2.13 mg/dL 1.80-2.40 N COMMENTS: Every 6 hours until anion gap </= 12 mEq/L, then every morningGLUCOSE [id number] 20:07:00* Test Item Value Reference Range Interpretation Comme nts GLUCOSE BEDSIDE (test code = GLUBED) 186 MG/DL 70-110 H Performed by cer loganied plastic welding machine operator at [facility] LIPID PROFILE (CORONARY RISK)2022-08-18 15:54:00* Test Item Value Reference Range Interpretation Comme nts TRIGLYCERIDES (test code = TRIG) 161 mg/dL [...] = LDL) 33.0 mg/dL 0-100 N <100 [id number] 0-129 NEAR OPTIMAL/ABOVE [id number] HIGH>RX=638 VERY HIGH*Guidelines provided by the National Cholesterol EducationProgram Adult Treatment Panel III T4 [id number] 15:54:00* Test Item Value Reference Range Interpretation Comme nts T4 FREE (test code = T4F) 0.7 ng/dL 0.77-1.61 L THYROID STIMULATING [id number] 15:54:00* Test Item Value Reference Range Interpretation Comme nts THYROID STIMULATING HORMONE (test code = TSH) 0.96 0.42-5.47 N Result s in jalen-International Units/mL RENAL FUNCTION [id number] 15:09:00* Test Item Value Reference Range Interpretation [...] gap </= 12 mEq/L, then every morning [id number] 15:09:00* Test Item Value Reference Range Interpretation Comme [facility] MAGNESIUM (test code = MAG) 2.09 mg/dL 1.80-2.40 N COMMENTS: Every 6 hours until anion gap </= 12 mEq/L, then every morningGLUCOSE [id number] 14:15:00* Test Item Value Reference Range Interpretation Comme [facility] GLUCOSE BEDSIDE (test code = GLUBED) 195 MG/DL 70-110 H Performed by cer tified plastic welding machine operator at [facility] GLUCOSE [id number] 13:20:00* Test Item Value Reference Range Interpretation Comme [facility] GLUCOSE BEDSIDE (test code = GLUBED) 213 MG/DL 70-110 H Performed by cer tified plastic welding machine operator at [facility] GLUCOSE [id number] 12:14:00* Test Item Value Reference Range Interpretation Comme nts GLUCOSE BEDSIDE (test code = GLUBED) 201 MG/DL 70-110 H Performed by cer tified plastic welding machine operator at [facility] GLUCOSE [id number] 11:18:00* Test Item Value Reference Range Interpretation Comme nts GLUCOSE BEDSIDE (test code = GLUBED) 223 MG/DL 70-110 H Performed by cer tified plastic welding machine operator at [facility] GLUCOSE [id number] 10:19:00* Test Item Value Reference Range Interpretation Comme nts GLUCOSE BEDSIDE (test code = GLUBED) 304 MG/DL 70-110 H Performed by cer tified plastic welding machine operator at [facility] GLUCOSE [id number] 09:11:00* Test Item Value Reference Range Interpretation Comme nts GLUCOSE BEDSIDE (test code = GLUBED) 405 MG/DL 70-110 H Performed by cer tified plastic welding machine operator at [facility] GLUCOSE [id number] 08:34:00* Test Item Value Reference Range Interpretation Comme nts GLUCOSE BEDSIDE (test code = GLUBED) 449 MG/DL 70-110 H Performed by cer tified plastic welding machine operator at [facility] RENAL FUNCTION [id number] 06:41:00* Test Item Value Reference Range Interpretation Comme nts SODIUM (test code = NA) 121 mEq/L 134-147 LL Critical result called to ROSIBEL TripathiLAB.KAF at 0608/18/22urse read back resut and tech confirmed it's correct? Y POTASSIUM (test code = K) 4.1 mEq/L 3.4-5.0 N CHLORIDE (test code = CL) 90 mEq/L 100-108 L CARBON DIOXIDE (test code = CO2) 15 mEq/l 21-33 L ANION GAP (test code = GAP) 20 0-20 N GLUCOSE (test code = GLU) 692 mg/dL 70-110 HH Critical result called to ROSIBEL Elizabeth.LAB.KAF at 0608/18/22Nurse read back resut and tech confirmed it's [...] gap </= 12 mEq/L, then every morning [id number] 06:41:00* Test Item Value Reference Range Interpretation Comme [facility] MAGNESIUM (test code = MAG) 2.34 mg/dL 1.80-2.40 N COMMENTS: Every 6 hours until anion gap </= 12 mEq/L, then every morningACETONE [id number] 06:41:00* Test Item Value Reference Range Interpretation Comme [facility] ACETONE QUANT (test code = ACETN) Large - 80-100 mg/dL mg/dL See_Comment [Automated message] The system which generated this result transmitted reference range: Neg - <20. The reference range was not used to interpret this result as normal/abnormal. COMMENTS: Every 6 hours until anion gap </= 12 mEq/L, then every dqxtfakPNQQ3T% 2022-08-18 06:28:00* Test Item Value Reference Range Interpretation Comme [facility] HGBA1C% (test code = HGBA1C%) 13.4 %A1C 4.8-6.0 H [id number] 03:14:00* Test Item Value Reference Range Interpretation Comme [facility] SALICYLATE (test code = BANG) 5.6 mg/dL 0.0-20.0 N POC ARTERIAL BLOOD [id number] 03:10:00* Test Item Value Reference Range Interpretation Comme [facility] POC ARTERIAL BLOOD GAS PH (t est code = POCPHA) 7.309 7.35-7.45 L POC ARTERIAL BLOOD GAS PCO2 (test code = BOMWGD4V) 22.3 mmHg 35.0-45 LL POC TCO2 ARTERIAL (test code = POCTCO2) 11.9 POC ARTERIAL BLOOD GAS PO2 ( test code = CGHAU3P) 108.0 mmHg 80-100.0 H POC HCO3 ARTERIAL (test code = VEOSDA3V) 11.2 MMOL/L 22.0-26.0 LL POC BASE EXCESS (test code = POCBEA) -15.1 MMOL/L -4.0-4.0 L POC O2 SATURATION (test code = POCO2S) 97.9 % 90-100 N FIO2 (test code = FIO2A) 21 % PaO2/FiO2 (test code = BZP8MCH3) 514.28 mm/Hg ABG DELIVERY (test code = ANDREA) Room Air ABG SITE (test code = SITEA) R Radial NETO'S TEST (test code = ALLENS) Positive COVID 19 INHOUSE [id number] 03:08:00* Test Item Value Reference Range Interpretation Comme nts COVID 19 INHOUSE AG (test code = PAXTJ92PGHE) Negative Negative A negative resul t is [...] moderate, high or waivedcomplexity tests. INFLUENZA A [id number] 03:06:00* Test Item Value Reference Range Interpretation Comme nts INFLUENZA A (test code = FLUAPCR) Negative Negative INFLUENZA B (test code = FLUBPCR) Negative Negative WBC [id number] 03:04:00* Test Item Value Reference Range Interpretation [...] (test code = PLTMORPH) NORMAL CBC W/AUTO [id number] 03:04:00* Test Item Value Reference Range Interpretation [...] REQUIRED (test c ode = MDIFF) YES HEPATIC FUNCTION [id number] 02:44:00* Test Item Value Reference Range Interpretation [...] code = ALKP) 157 IUnit/L 20-125 H [id number] 02:44:00* Test Item Value Reference Range Interpretation Comme nts LIPASE (test code = LIP) 24 U/L 13-57 N TROP-I HIGH [id number] 02:44:00* Test Item Value Reference Range Interpretation [...] URL. These results were obtained using [employer] IM TnIHreagent. Results from different methodologies should not becompared to one another as quantitative results and URLs mayvary by method. LACTIC [id number] 02:44:00* Test Item Value Reference Range Interpretation Comme nts LACTIC ACID (test code = LACT) 1.2 mmol/L 0.4-1.9 N BASIC METABOLIC [id number] 02:44:00* Test Item Value Reference Range Interpretation Comme nts SODIUM (test code = NA) 115 mEq/L 134-147 LL Critical result called to RADHA Elizabeth.LAB.KAF at [...] code = CA) 8.5 mg/dL 8.0-10.5 N - CT LOWER EXTRM W/O C [id number] 00:00:00 [facility] 1965 Sex: MName: KARMA ROWLAND [facility] : 1965 Age/S: 56 / M [address] [place] [address] Blvd Unit #: [id number] Loc: [place] [address] Phys: Andrew London MD Acct: [id number] Dis Date: Status: ADM IN PHONE #: [phone] Exam Date: 08/18/2022 0645 FAX #: [phone] Reason: soft tissue infection Report Has Been Amended EXAMS: CPT CODE: [id number] [place] LOWER EXTRM W/[place] [address] Addendum - 08/18/2022 SIGNED 08/18/2022 ADDENDUM: [id number] CT/CTLEWOCRT Notes: Critical findings were discussed with [...] patient size (includes targeted exams where dose ismatched to clinical indication); or iterative reconstruction. REPORTING DATA: Count of CT and Cardiac NM exams in prior 12 months: This patient has received [address] and 0 known cardiac nuclear medi cine studies in the 12 months prior to the current study. COMPARISON: CR XR FOOT 3 + V RT :35 AM FINDINGS: Limitations: Assessment of the soft tissues and vasculature may be limited by thelack of intravenous contrast. Bones/joints: There is no [...] 1 Signed Report (CONTINUED) Name: KARMA ROWLAND [facility] : 1965 Age/S: 56 / M [address] [place] [address] Unit #: [id number] Loc: [place] [address] Phys: Andrew London MD Acct: [id number] Dis Date: Status: ADM IN PHONE #: [phone] Exam Date: 08/18/2022 0645 FAX #: [phone] Reason: soft tissue infection Report Has Been Amended EXAMS: CPT CODE: [id number] CT LOWER EXTRM W/[place] [address] (Continued) compartments of the foot with extension [...] Wilbert Ramires MD; Andrew London MD Technologist:RT Tricia(R)(CT)CTDI: DLP: Trnscb Date/Time: 08/18/2022 (825) Jamel Orig Print D/T: S: 08/18/2022 (826) PAGE 2 Signed Report- XR FOOT 3 + V [id number] 00:[facility]00[facility] 1965 Sex: MFAX: nAgi Peña [place]: St: REG Name: KARMA ROWLAND [facility] : 1965 Age/S: 56/M [address] [place] [address] Unit #: [id number] Loc: [place] [address] Phys: Angi Peña Acct: [id number] Dis Date: Status: [facility] ER PHONE #: [phone] Exam Date: 08/18/2022237 FAX #: [phone] Reason: DIABETIC FOOT WOUND R/O OSTEOMYLITIS EXAMS: CPT CODE: [id number] XR FOOT 3 + V RT [id number] INFORMATION: Exam: XR Right Foot Exam date and time: 08/18/2022 2:35 AM Age: 56 years oldClinical indication: Other: Diabetic foot wound R/O osteomylitis [...] If there is further concern, recommend follow-up radiograph s or MRI for complete assessment. IMPRESSION: No acute osseous findings. No convincing evidence forosteomyelitis. MRI is more sensitive for detecting osteomyelitis. at 0357 Reported and signed by: Jay Ladd M.D. CC: Angi Peña Technologist: RT Kush(Avinash) Trnscrd Date/Time/By: 08/18/2022 (035) : By: [email or web address] Orig Print D/T: S: 08/18/2022 (035) PAGE 1 Signed Report- XR CHEST 2 [id number] 00:00:00 [facility] 1965 Sex: MFAX: Angi Peña [place]: St: REG Name: ROWLANDLASHAWN LYNNEO [facility] : 1965 Age/S: 56/M [address] [place] [address] Unit #: [id number] Loc: [place] [address] Phys: Angi Peña Acct: [id number] Dis Date: Status: REG ER PHONE #: [phone] Exam Date: 08/18/2022 020 FAX #: [phone] Reason: FEVER PAIN EXAMS: CPT CODE: [id number] XR CHEST 2 V 06392 PROCEDURE INFORMATION: Exam:XR Chest Exam date and [...] pleural effusion. No pneumothorax. Heart/Mediastinum: Normal without cardiomegalyor mass. Bones/joints: No acute osseous abnormality. IMPRESSION: Ill-defined somewhat nodular opacity measuring 3.2 cm laterally in the right mid lung suspicious for rounded pneumonia given provided history, but underlying neoplasm can not be excluded. Followup radiographs are recommended after appr opriate treatment in order to document complete resolution and exclude an underlying process or neoplasm. at 316 Reported andsigned by: Dom Adams M.D. CC: Angi Peña Technologist: RT Kush(Avinash) Trnscrd Date/Time/By: 08/18/2022 (316) : By: [email or web address] Orig Print D/T: S: 08/18/2022 (316) PAGE 1 Signed Report- CT ABD PELVIS [id number] 00:00:00 [facility] : 1965 Sex: MName: KARMA ROWLAND [facility] : 1965 Age/S: 56 / M [address] [place] [address] Blvd Unit #: [id number] Loc: [place] [address] Phys: Angi Peña Avinash APRNNAnibal Acct: [id number] Dis Date: Status: ADM IN PHONE #: [phone] Exam Date: 08/18/2022338 FAX #: [phone] Reason: FEVER PAIN EXAMS: CPT CODE: [id number] CT ABD PELVIS W/CONT 94448 PROCEDURE INFORMATION: Exam: CT Abdomen And Pelvis [...] 1 Signed Report (CONTINUED) Name: KARMA ROWLAND [facility] : 1965 Age/S: 56 / M [address] [place] [address] Unit #: [id number] Loc: [place] [address] Phys: Angi Peña Acct: [id number] Dis Date: Status: ADM IN PHONE #: [phone] Exam Date: 08/18/2022338 FAX #: [phone] Reason: FEVERPAIN EXAMS: CPT CODE: [id number] CT ABD PELVIS W/CONT 28416 (Continued) 3.3 cm hypodensity in the left posterior prostate or seminal vesicle. This could represent an abscess. Contrast-enhanced MRI of the pelvis would be helpful for further evaluation. No acute intra-abdominal findings otherwise. E lectronically Signed by Jennifer Ladd on 08/18/2022 at 0546 Reported and signed by:Jay Ladd M.D. CC: Angi Peña Technologist:Marquez Landry RT(R)(CT) CTDI: DLP: Trnscb Date/Time: 08/18/2022 (545) [email or web address] Orig Print D/T: S: 08/18/2022 (0546) PAGE 2 Signed Report Notes Date/Time Note Provider Source 2024-09-30 09:12:22 Chief Complaint Patient presents with Diabetes 6 month follow up Rose Recinos MA T [facility] 2024-06-23 09:03:08 Chief Complaint Patient presents with Blood Pressure Diabetes Rose Recinos MA [facility] 2023-09-29 16:52:[address] Hazel for Urgent appointment ,referral authorized and faxed to their office. Appointment scheduled tomorrow at 0915 and patient verbalized understanding. Domi Lynne LVN [facility] 2022-09-24 19:34:00 [facility] Podiatry Progress Note REPORT#:[id number] REPORT STATUS: Signed DATE:09/24/22 TIME: 1933 PATIENT: KARMA ROWLAND UNIT #: [id number] ROOM/BED: [place] [address] : [birth year] AGE: 56 SEX: M ATTEND: Mj Vences MD ADM AUTHOR: Liam JeffreyM * ALL edits or amendments must be made on the electronic/computer document * Subjective Chief complaint: left heel ulcer. left ankle pain Patient reports: no confusion, no dizziness, no fever, [...] MG Q6H PRN PRN IV (DCD) I O: 24 hour I O ending at 0700: 09/24 0700 09/23 1900 Intake Total 240 Output Total 1500 1300 Balance -1260 -1300 Intake, Oral 240 Number 0 Incontinent Voids Number Voids 0 Output, Urine 1500 1300 Dietitian nutrition assessment The data set between the solid lines has been imported from the dietitian's assessment. BMI Calculated: 27.1 Nutrition related diagnosis: Nutrition diagnosis details: Nutrition problem: Altered nutrition labs Nutrition etiology: DM Nutrition signs and symptoms: HYPER/HYPOGLYCEMIA, A1C >14 Nutrition prescription: CONTINUE RENAL DM [...] % (Auto) (14.0 - 32.0 %) 14.8 [place] % (Auto) (4.8 - 9.0 %) 7.6 Eos % (Auto) (0.3 - 3.7 %) 3.0 Baso % (Auto) (0.0 - 2.0 %) 0.0 Neut # (Auto) (2.0 - 7.6 x10 3/uL) 9.62 H Lymph # (Auto) (1.0 - 3.8 x10 3/uL) 1.93 [place] # (Auto) (0.1 - 0.8 x10 3/uL) [...] 3/uL) 0.00 Diagnosis, Assessment Plan Free Text A P: DM with neuropathy early decub ulcer left heel OA/edema left ankle early ulcer/DTI dorsal left midfoot zinc oxide to foot and heel foam to heel on IV abx on PO gabapentin offloading boot joan wraps to ankle, only when OOB with therapy. zinc oxide interchange with bactroban to dorsal left foot Consultants: cardiology, endocrinology, hospitalist, infectious disease, podiatry at 1934 RPT #:[id number] END OF REPORT [facility] 2022-09-24 16:05:00 [facility] ([facility]) Infectious Dis. Progress Note REPORT#:[id number] REPORT STATUS: Signed DATE:09/24/22 TIME: 1605 PATIENT: KARMA ROWLAND UNIT #: [id number] ROOM/BED: [place] [address] : [birth year] AGE: 56 SEX: M ATTEND: Mj Vences MD ADM AUTHOR: Anthony Curtis MD * ALL edits or amendments must be made on the electronic/computer document * Subjective Chief complaint: Follow-up on MRSA bacteremia, prostatic abscess. HPI: Patient reports feeling better subjectively. Denies acute or new complaints. No major overnight events. Objective General VS/I O: Vital Signs Date Temp Pulse Resp B/P B/P Mean Pulse Ox FiO2 05/-09/24 97.7-97.9 86-87 16 160-169/81-86 107.5-113.7 97 Last Documented: Result Date Time Pulse Ox 97 09/24 000 B/P 160/81 09/24 8 B/P Mean 107.5 09/24 8 O2 Delivery Room air 09/24 8 Temp 97.9 09/24 8 Pulse 87 09/24 8 Resp 16 09/24 8 O2 Flow Rate 2 09/08 1322 Vital [...] Exam General appearance: alert, awake, no acute distress Cardiovascular: normal heart sounds, regular rate rhythm Respiratory: clear to auscultation, aerating well Abdomen: non-tender, soft, no distention Extremities: edema (in left leg and thigh improved), moves all, right BKA Left foot wound +dressing in place Neuro/QUANTITATIVE ANALYST: alert, oriented X 3 Considered stroke alert: [...] intramuscular compartments of the foot, compatible with gas -forming infection. Patient's blood cultures have come back positive for MRSA in 2 out of 2 sets. Patient has had persistent positive cultures for MRSA. He underwent a debridement of his foot on 08/19/2022 and cultures grew MRSA. Patient was started on vancomycin and clindamycin on 08/18/2022. His MRI showed a prostate abscess. 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 Pt underwent a transrectal aspiration and unroofing of prostate abscess 08/26/2022 and cultures grew Citrobacter, Enterococcus, MRSA. He also had a BKA of right leg 2022. JIMENA done 09/02/2022, which was negative for vegetations. Patient was transferred to Rehab on 09/02/2022. *MRSA bacteremia, refractory, now cleared *Prostatic abscess, s/p unroofing 08/26/2022 *ERIKA *Hyponatremia *Diabetic neuropathy *Diabetes mellitus type 2 *Hypertension *Anemia -Afebrile; although with an isolated low-grade temperature spike of 37.2 C. -Leukocytosis of 11.8 on today's CBC noted; overall, downtrending. -No recent cultures. Last blood cultures from 08/28/22 negative x2. Plan: -On daptomycin and meropenem. -Finishing treatment today. -Would finish treatment as planned and then monitor off antimicrobials. -Continue supportive care. at 1605 RPT #:[id number] END OF REPORT [facility] 2022-09-24 15:22:00 [facility] ([facility]) Pain Management Progress Note REPORT#:[id number] REPORT STATUS: Signed DATE:09/24/22 TIME: 152 PATIENT: KARMA ROWLAND UNIT #: [id number] ROOM/BED: [place] [address] : [birth year] AGE: 56 SEX: M ATTEND: Mj Vences MD ADM AUTHOR: Ben Klein PA * ALL edits or amendments must be made on the electronic/computer document * Ben Klein 09/24/22 1522: Subjective [...] fever/chills, chest pain, orthopnea, nausea/vomiting, pruritus, or hallucinations. 14 point ROS undertaken unremarkable except as noted Objective General VS/I O: Vital Signs Date Temp Pulse Resp B/P B/P Mean Pulse Ox FiO2 09/23-09/24 36.5-36.6 86-87 16 160-169/81-86 107.5-113.7 97 Last [...] Exam General appearance: alert, awake, oriented, no acute distress Head/eyes: atraumatic, EOMI, normocephalic, normal conjunctiva/sclera, PERRLA ENT: normal nose, normal pharynx, moist mucosal membranes Neck: full range of motion, no lymphadenopathy, supple/no meningismus Cardiovascular: regular rate rhythm Respiratory: aerating well Abdomen: soft, non-tender, no distention, active bowel sounds in all quarants. Abdomen quadrants LLQ normal bowel sounds, LUQ normal bowel sounds, RLQ normal bowel sounds, RUQ normal bowel sounds Extremities: moves all, no edema, pedal pulses, right BKA Neuro/QUANTITATIVE ANALYST: 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, no sensory deficits, CNII-XII grossly intact Considered stroke alert: no Skin: dry, intact, no rash Lymphatics: axilla normal Psychiatry: normal affect, normal judgment/insight Results Findings/data: Laboratory Tests: 09/24 09/24 09/24 [...] % (Auto) (14.0 - 32.0 %) 14.8 [place] % (Auto) (4.8 - 9.0 %) 7.6 Eos % (Auto) (0.3 - 3.7 %) 3.0 Baso % (Auto) (0.0 - 2.0 %) 0.0 Neut # (Auto) (2.0 - 7.6 x10 3/uL) 9.62 H Lymph # (Auto) (1.0 - 3.8 x10 3/uL) 1.93 [place] # (Auto) (0.1 - 0.8 x10 3/uL) [...] x10 3/uL) 0.00 Diagnosis, Assessment Plan Free text A P: A/P: Patient is a 56 year old male who presents with: Past Medical History: Prostate abscess, right foot foot and ankle gangrene, diabetes, hypertension, hyperlipidemia Past Surgical History: TURP, right BKA Family History: Noncontributory Social History: Denies tobacco, alcohol, or drug use Allergies: NKDA Recent prostate abscess -Status post TURP with unroofing of abscess -IV antibiotics with vancomycin until 09-24-2022 Acute postoperative pain, right foot and ankle gangrene, requiring BKA -Patient is at risk for further amputations or loss of limb due to comorbid conditions -Status post right BKA 08/28/2022 -DC [place] 10/325 1 tablet p.o. every 4 hours as needed pain scale 4 10 -DC Dilaudid 0.5 mg IV daily as needed pain scale 7 10, second line therapy () -Tylenol 650 mg p.o. every 6 hours as needed pain scale 1 3 -Percocet 10/325mg every 4 hours as needed, pain scale 4-10 (09/10) -Lidoderm patch to left ankle daily -IV antibiotics with vancomycin until 09-24-2022 -Local wound care -manageable Diabetic peripheral neuropathy -amitriptyline 25mg PO QHS -Gabapentin 100mg every 8 hours (09/10) -manageable Hypertension -We will monitor hypertension and tachycardia due to pain, and hypotension as well as bradycardia secondary over sedation with narcotics -Hydralazine as needed Elevated LFTs -08/20/22-AST 51, ALT 22 -09/03/2022-AST 15, ALT 7 -Patient will require close monitoring since he is using narcotics with Tylenol Impaired functional mobility, balance, gait, and endurance -PT/OT Antalgic/Impaired gait -PT/OT -Improve strength, endurance, self-care, gait, balance, ADLs -Fall precautions per unit protocol -Pain medications as outlined above Constipation -We will monitor while utilizing opioid narcotic medications. -Adequate fluid intake also discussed. -Colace 100 mg p.o. twice daily as needed -Dulcolax 10 mg rectally daily as needed -Senna lax 8.6mg daily -Miralax 17gm daily -manageable Disposition: percocet 10/325mg q6h prn pain , gabapentin 100mg q8h sent to [facility]/ pharmacy #[id number] [place] [address] ([facility] [address]) Phone: Patient has failed conservative medical therapy. Patient will require monitoring while utilize narcotic medications [...] whom agrees. Thank you for the consultation. [place] ORCHESTRA LEADER: -database searched, no information found Kingsley Ng 10/10/22 1305: Attestations Physician Attestation Agree w/findings plan: The patient was seen and examined by Ben Klein. I personally developed the care plan, which was continued by the mid-level provider. I was immediately available. at 1528 at 1308 RPT #:[id number] END OF REPORT [facility] 2022-09-24 14:06:00 [facility]) Endocrinology Progress Note REPORT#:[id number] REPORT STATUS: Signed DATE:09/24/22 TIME: 1406 PATIENT: KARMA ROWLAND UNIT #: [id number] ROOM[facility]BED: [facility] : 61 AGE: 56 SEX: M ATTEND: Mj Vences MD ADM AUTHOR: Braxton Chapin MD * ALL edits or amendments must be made on the electronic/computer document * Subjective Patient reports: no complaints Objective General VS: Last Documented: Result Date Time Pulse Ox 97 09/24 8 B/P 160/81 09/24 8 B/P Mean 107.5 09/24 8 O2 Delivery Room air 05/03 0009 Temp 36.6 09/24 8 Pulse 87 09/249 Resp 16 09/24 8 O2 Flow Rate [...] % (Auto) (14.0 - 32.0 %) 14.8 [place] % (Auto) (4.8 - 9.0 %) 7.6 Eos % (Auto) (0.3 - 3.7 %) 3.0 Baso % (Auto) (0.0 - 2.0 %) 0.0 Neut # (Auto) (2.0 - 7.6 x10 3/uL) 9.62 H Lymph # (Auto) (1.0 - 3.8 x10 3/uL) 1.93 [place] # (Auto) (0.1 - 0.8 x10 3/uL) [...] (Auto) (14.0 - 32.0 %) 9.6 L [place] % (Auto) (4.8 - 9.0 %) 4.5 L Eos % (Auto) (0.3 - 3.7 %) 0.1 L Baso % (Auto) (0.0 - 2.0 %) 0.1 Neut # (Auto) (2.0 - 7.6 x10 3/uL) 10.02 H Lymph # (Auto) (1.0 - 3.8 x10 3/uL) 1.13 [place] # (Auto) (0.1 - 0.8 x10 3/uL) [...] (0 - 100 PG/ML) 251.0 H 09/226 7 Chemistry Sodium (134 - 147 mEq/L) 138 [...] (Auto) (14.0 - 32.0 %) 11.3 L [place] % (Auto) (4.8 - 9.0 %) 5.7 Eos % (Auto) (0.3 - 3.7 %) 0.2 L Baso % (Auto) (0.0 - 2.0 %) 0.0 Neut # (Auto) (2.0 - 7.6 x10 3/uL) 9.79 H Lymph # (Auto) (1.0 - 3.8 x10 3/uL) 1.35 [place] # (Auto) (0.1 - 0.8 x10 3/uL) [...] (Auto) (14.0 - 32.0 %) 11.3 L [place] % (Auto) (4.8 - 9.0 %) 5.3 Eos % (Auto) (0.3 - 3.7 %) 0.2 L Baso % (Auto) (0.0 - 2.0 %) 0.1 Neut # (Auto) (2.0 - 7.6 x10 3/uL) 10.70 H Lymph # (Auto) (1.0 - 3.8 x10 3/uL) 1.47 [place] # (Auto) (0.1 - 0.8 x10 3/uL) [...] 09/20 09/20 09/20 09/19 1140 0922 0505 3648 4611 Chemistry Sodium (134 - 147 mEq/L) 136 [...] (Auto) (14.0 - 32.0 %) 13.0 L [place] % (Auto) (4.8 - 9.0 %) 6.2 Eos % (Auto) (0.3 - 3.7 %) 0.2 L Baso % (Auto) (0.0 - 2.0 %) 0.1 Neut # (Auto) (2.0 - 7.6 x10 3/uL) 9.84 H Lymph # (Auto) (1.0 - 3.8 x10 3/uL) 1.60 [place] # (Auto) (0.1 - 0.8 x10 3/uL) [...] 09/19 09/19 09/19 09/18 09/18 1133 0501 6948 [id number] Chemistry Sodium (134 - 147 mEq/L) 139 [...] % (Auto) (14.0 - 32.0 %) 16.5 [place] % (Auto) (4.8 - 9.0 %) 8.4 Eos % (Auto) (0.3 - 3.7 %) 2.4 Baso % (Auto) (0.0 - 2.0 %) 0.2 Neut # (Auto) (2.0 - 7.6 x10 3/uL) 9.50 H Lymph # (Auto) (1.0 - 3.8 x10 3/uL) 2.19 [place] # (Auto) (0.1 - 0.8 x10 3/uL) [...] % (Auto) (14.0 - 32.0 %) 17.4 [place] % (Auto) (4.8 - 9.0 %) 6.9 Eos % (Auto) (0.3 - 3.7 %) 0.1 L Baso % (Auto) (0.0 - 2.0 %) 0.1 Neut # (Auto) (2.0 - 7.6 x10 3/uL) 7.91 H Lymph # (Auto) (1.0 - 3.8 x10 3/uL) 1.85 [place] # (Auto) (0.1 - 0.8 x10 3/uL) [...] (Auto) (14.0 - 32.0 %) 10.2 L [place] % (Auto) (4.8 - 9.0 %) 2.9 L Eos % (Auto) (0.3 - 3.7 %) 0.0 L Baso % (Auto) (0.0 - 2.0 %) 0.1 Neut # (Auto) (2.0 - 7.6 x10 3/uL) 7.58 Lymph # (Auto) (1.0 - 3.8 x10 3/uL) 0.91 L [place] # (Auto) (0.1 - 0.8 x10 3/uL) [...] % (Auto) (14.0 - 32.0 %) 18.6 [place] % (Auto) (4.8 - 9.0 %) 6.7 Eos % (Auto) (0.3 - 3.7 %) 0.2 L Baso % (Auto) (0.0 - 2.0 %) 0.1 Neut # (Auto) (2.0 - 7.6 x10 3/uL) 6.99 Lymph # (Auto) (1.0 - 3.8 x10 3/uL) 1.77 [place] # (Auto) (0.1 - 0.8 x10 3/uL) [...] pH (5.0 - 7.0) 5.0 Ur Specific [place] (1.005 - 1.030) 1.013 Urine Protein (NEGATIVE) [...] (Auto) (14.0 - 32.0 %) 11.3 L [place] % (Auto) (4.8 - 9.0 %) 3.2 L Eos % (Auto) (0.3 - 3.7 %) 0.0 L Baso % (Auto) (0.0 - 2.0 %) 0.1 Neut # (Auto) (2.0 - 7.6 x10 3/uL) 7.35 Lymph # (Auto) (1.0 - 3.8 x10 3/uL) 0.98 L [place] # (Auto) (0.1 - 0.8 x10 3/uL) [...] (Auto) (14.0 - 32.0 %) 13.9 L [place] % (Auto) (4.8 - 9.0 %) 5.1 Eos % (Auto) (0.3 - 3.7 %) 0.0 L Baso % (Auto) (0.0 - 2.0 %) 0.1 Neut # (Auto) (2.0 - 7.6 x10 3/uL) 7.58 Lymph # (Auto) (1.0 - 3.8 x10 3/uL) 1.31 [place] # (Auto) (0.1 - 0.8 x10 3/uL) [...] H Laboratory Tests: 09/13 09/13 09/13 09/12 0024 0552 3214 2016 Chemistry Sodium (134 - 147 mEq/L) [...] (Auto) (14.0 - 32.0 %) 10.4 L [place] % (Auto) (4.8 - 9.0 %) 3.5 L Eos % (Auto) (0.3 - 3.7 %) 0.0 L Baso % (Auto) (0.0 - 2.0 %) 0.1 Neut # (Auto) (2.0 - 7.6 x10 3/uL) 8.34 H Lymph # (Auto) (1.0 - 3.8 x10 3/uL) 1.02 [place] # (Auto) (0.1 - 0.8 x10 3/uL) [...] Date/Time Procedure - Status Source Growth 09/13 8195 MRSA DNA Surveillance Screen - RECD NASAL [...] % (Auto) (14.0 - 32.0 %) 15.0 [place] % (Auto) (4.8 - 9.0 %) 7.9 Eos % (Auto) (0.3 - 3.7 %) 3.8 H Baso % (Auto) (0.0 - 2.0 %) 0.3 Neut # (Auto) (2.0 - 7.6 x10 3/uL) 6.34 Lymph # (Auto) (1.0 - 3.8 x10 3/uL) 1.31 [place] # (Auto) (0.1 - 0.8 x10 3/uL) [...] % (Auto) (14.0 - 32.0 %) 16.1 [place] % (Auto) (4.8 - 9.0 %) 9.1 H Eos % (Auto) (0.3 - 3.7 %) 5.6 H Baso % (Auto) (0.0 - 2.0 %) 0.5 Neut # (Auto) (2.0 - 7.6 x10 3/uL) 5.35 Lymph # (Auto) (1.0 - 3.8 x10 3/uL) 1.27 [place] # (Auto) (0.1 - 0.8 x10 3/uL) [...] % (Auto) (14.0 - 32.0 %) 15.5 [place] % (Auto) (4.8 - 9.0 %) 8.5 Eos % (Auto) (0.3 - 3.7 %) 5.5 H Baso % (Auto) (0.0 - 2.0 %) 0.4 Neut # (Auto) (2.0 - 7.6 x10 3/uL) 5.94 Lymph # (Auto) (1.0 - 3.8 x10 3/uL) 1.33 [place] # (Auto) (0.1 - 0.8 x10 3/uL) [...] % (Auto) (14.0 - 32.0 %) 16.1 [place] % (Auto) (4.8 - 9.0 %) 9.2 H Eos % (Auto) (0.3 - 3.7 %) 4.7 H Baso % (Auto) (0.0 - 2.0 %) 0.4 Neut # (Auto) (2.0 - 7.6 x10 3/uL) 6.38 Lymph # (Auto) (1.0 - 3.8 x10 3/uL) 1.49 [place] # (Auto) (0.1 - 0.8 x10 3/uL) [...] (Auto) (14.0 - 32.0 %) 13.7 L [place] % (Auto) (4.8 - 9.0 %) 7.2 Eos % (Auto) (0.3 - 3.7 %) 4.8 H Baso % (Auto) (0.0 - 2.0 %) 0.3 Neut # (Auto) (2.0 - 7.6 x10 3/uL) 6.64 Lymph # (Auto) (1.0 - 3.8 x10 3/uL) 1.24 [place] # (Auto) (0.1 - 0.8 x10 3/uL) [...] abdomen. Impression By: [email or web address] - Roger Parra M.D. ULTRASOUND - DUP VEIN UNI/LTD 09/05 1146 Report Impression - Status: SIGNED Entered: 09/05/2022 1333 IMPRESSION: 1. No evidence of deep vein thrombosis. 2. Complex heterogeneous hypoechoic fluid collection in the left calf region measuring 8.4 x 2.8 x 2.5 cm; there is no internal vascularity or peripheral hyperemia. May represent a hematoma. Impression By: [email or web address] - Mert Ga M.D. RADIOLOGY - XR CHEST 1 V 09/05 1432 Report Impression - Status: SIGNED Entered: 09/05/2022 1515 IMPRESSION: Minimal bibasilar pulmonary opacities Impression By: TipTDO - Bishop Mares M.D. Laboratory [...] COLB STOOL 1.Diabetes mellitus type 2 uncontrolled complications. 2. 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 4. Sepsis 5. Prostate abscess. 6. Anemia 7. Chronic renal failure. Blood sugar 183-100 mg/dL.H/H 8.11/17. Adjust insulin dose. PT and OT. If d/c ed,f/u 2 wks. at 1407 RPT #:[id number] END OF REPORT [facility] 2022-09-24 10:48:00 [facility] ([facility] Rehab Discharge Summary REPORT#:[id number] REPORT STATUS: Signed DATE:09/24/22 TIME: 1048 PATIENT: KARMA ROWLAND UNIT #: [id number] ROOM/BED: [place] [address] : 63 AGE: 56 SEX: M ATTEND: Mj Vences MD ADM AUTHOR: Guero Candelaria * ALL edits or amendments must be made on the electronic/computer document * Med Rec Med Rec Discharge meds: Stop taking the following medications: HEPARIN SODIUM,PORCINE (HEPARIN SOD 1ML) 5,000 UNIT/ML VIAL [...] NEEDED. as needed for N/V IF NOT ON [...] clear bilaterally Abdomen: bowel sounds present, non-distended, soft, non-tender Skin: no rash, R BKA HEALING. L ankle/foot wrapped with kerlix Musculoskeletal - general: Musculoskeletal - general: swelling (LLE, calve NT, homans neg), BUE 5/5, LLE 4/5, R hip 3- Neuro/QUANTITATIVE ANALYST: alert, oriented X 3, CNII-XII intact Functional Progress Functional progress: The data set between the solid lines has been imported from multidisciplinary team documentation. __ FUNCTIONAL ACTIVITY [...] 09/24/22 Admission diagnosis: 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 S/p surgical debridement and washout 4/6: S/p right Sebastián Leroy Significant impairment in self-care, ADLs and functional mobility Impaired mobility and gait Postoperative pain Diabetic polyneuropathy DKA, DM 2, poorly controlled, A1c greater than 14 PAD MRSA bacteremia/sepsis-treated on acute ERIKA Severe hyponatremia-resolved HTN Acute on chronic anemia requiring multiple transfusions Left calf hematoma Edema and clinical arthritis left ankle Prostatic abscess 08/26: S/p transrectal ultrasound aspiration of abscess and transurethral resection of prostate and unroofing of abscess Discharge diagnosis: 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 S/p surgical debridement and washout 08/28: S/p right Sebastián Leroy Significant impairment in self-care, ADLs and functional mobility Impaired mobility and gait Acute postoperative pain right BKA Diabetic polyneuropathy DKA, DM 2, poorly controlled, A1c greater than 14 PAD MRSA bacteremia/sepsis-treated on acute ERIKA Severe hyponatremia-resolved HTN Acute on chronic anemia requiring multiple transfusions, possible GI bleed Left calf hematoma Edema and clinical arthritis left ankle Early decubitus to left heel/DTI dorsal left midfoot Prostatic abscess 08/26: S/p transrectal ultrasound aspiration of abscess and transurethral resection of prostate and unroofing of abscess 09/12: Echo: EF 55-59%, grade 1 diastolic dysfunction 09/02: JIMENA negative for vegetation MRSA OF NARES 09/08:s/p EGD and colonoscopy. EGD showed mild gastritis. [...] is wearing a nestor-tech orthotic for right knee/BKA protection. Prior to [...] s prior level of function was independent. While here, patient worked hard with [...] all insulins. Patient to be discharged this afternoon Consultants: cardiology, endocrinology, hospitalist, infectious disease, podiatry Pt. condition on discharge: improved Allergies: Allergies: No Known Allergies (Coded, 03/23/11) Discharge Instructions Discharge Instructions Discharge to: Home Health [facility] Additional Discharge Routines: PCP Follow-Up, Furniture Finisher Helper Follow-Up Diet: Diabetic Activity: As Tolerated Prescriptions: e-prescribe Discharge management: greater than 30 mins Follow-up Appointments PCP: PCP: No Primary or Family Physician PCP follow up timeframe: In 1-2 weeks Consulting provider 1: Provider 1: Barrera Ramírez MD Specialty: Nephrology Consulting provider 2: Provider 2: Napoleon Parham MD Specialty: CardiologyInterventional Consulting provider 3: Provider 3: Nixon Leroy MD Specialty: Orthopaedic Surgery at 0507 RPT #:[id number] END OF REPORT [facility] 2022-09-24 10:31:00 [facility] Cardiology Progress Note REPORT#:[id number] REPORT STATUS: Signed DATE:09/24/22 TIME: 1031 PATIENT: KARMA ROWLAND UNIT #: [id number] ROOM/BED: [place] [address] : 63 AGE: 56 SEX: M ATTEND: Mj Vences MD ADM AUTHOR: Rohit Benitez LOG ROPER * ALL edits or amendments must be made on the electronic/computer document * Rohit Benitez 09/24/22 1031: Subjective Chief complaint: weakness Free Text Subj Notes Free Text Subj Notes: Patient seen and evaluated. Chart reviewed. No new symptoms, feeling well. Denies chest pain, palpitations, or shortness of breath. Discharge planning for [...] regular rate and rhythm, no ectopy, no gallop Respiratory: clear to auscultation, no distress Abdomen: soft, non-tender Genitourinary: urinary catheter Lower extremity: LE assessment: edema, normal temperature Neuro/QUANTITATIVE ANALYST: alert, oriented X 3 Considered stroke alert: no Wound/incision: Location: right bka Psychiatry: normal affect, normal judgment/insight, normal mood Results Findings/Data: Laboratory Tests 09/24 [...] % (Auto) (14.0 - 32.0 %) 14.8 [place] % (Auto) (4.8 - 9.0 %) 7.6 Eos % (Auto) (0.3 - 3.7 %) 3.0 Baso % (Auto) (0.0 - 2.0 %) 0.0 Neut # (Auto) (2.0 - 7.6 x10 3/uL) 9.62 H Lymph # (Auto) (1.0 - 3.8 x10 3/uL) 1.93 [place] # (Auto) (0.1 - 0.8 x10 3/uL) [...] 2.18 Diagnosis, Assessment Plan Consultants: cardiology, endocrinology, hospitalist, infectious disease, podiatry Free [...] rehab for physical therapy. Known cardiac history of hypertension and hyperlipidemia. Vital signs stable. Echocardiogram with [...] BMP in the morning. Supportive care. Plan of care discussed with [...] Continue hold diuretic for now. Supportive care. Plan of care discussed with patient, RN and Dr. Parham. 09/15: Repeat echocardiogram showed LVEF of 55 to 60%, no regional wall motion abnormalities, left ventricular diastolic function parameters are indeterminate, mildly dilated [...] Dr. Parham. 09/18: Blood pressure remains elevated due [...] volume status. No new cardiac complaint. Continue steroid taper per nephrology. Progressing in therapy. Discharge planning. [...] remains from cardiac standpoint. Blood pressure elevated, started on amlodipine 10 mg daily. Continue steroid therapy [...] RN and Dr. Parham. Napoleon Parham 09/27/22 1304: Diagnosis, Assessment Plan Additional comments: Agree with above assessment and plan as documented by nurse practitioner, continue current management, will follow. at 8143 at 6692 RPT #:[id number] END OF REPORT [facility] 2022-09-24 08:06:00 [facility] Gastroenterology Progress Note REPORT#:[id number] REPORT STATUS: Signed DATE:09/24/22 TIME: 805 PATIENT: KARMA ROWLAND UNIT #: [id number] ROOM/BED: [facility] : 63 AGE: 56 SEX: M ATTEND: Mj Vences MD ADM AUTHOR: Kassie Avitia MD * ALL edits or amendments must be made on the electronic/computer document * Subjective HPI: Patient is a 56-year-old male with history of diabetes mellitus type 2 and hypertension who was initially admitted for altered mental status and right- sided foot infection. [...] gym. Tolerating diet. Normal BMs. Stable H/H 09/14-Sitting up in wheelchair, family at bedside. Denies [...] kidney disease and mild oozing from his stump. Can consider video capsule endoscopy as outpt if evidence of dropping H/H H/H remains stable Consider reducing frequency of H/H check tolerating diet and moving his bowels Constipation; laxative as needed Will follow along Consultants: cardiology, endocrinology, hospitalist, infectious disease, podiatry at 0807 RPT #:[id number] END OF REPORT [facility] 2022-09-24 08:04:00 [facility]) Hospitalist Progress Note REPORT#:[id number] REPORT STATUS: Signed DATE:09/24/22 TIME: 0804 PATIENT: KARMA ROWLAND UNIT #: [id number] ROOM/BED: [place] [address] : 61 AGE: 56 SEX: M ATTEND: Mj Vences MD ADM AUTHOR: Wilbert Ramires MD * ALL edits or amendments must be made on the electronic/computer document * Subjective Chief complaint: follow up [...] no JVD Cardiovascular: normal heart sounds, regular rate rhythm Respiratory: aerating well, clear to auscultation Abdomen: non-tender, normal bowel sounds Genitourinary: no bladder distention Extremities: edema (1+ pitting edema to thigh), moves all, normal capillary refill Musculoskeletal: normal inspection Neuro/QUANTITATIVE ANALYST: alert, oriented X 3, 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 Considered stroke alert: no Skin: dry, intact Psychiatry: normal affect, normal judgment/insight Results Findings/Data: Laboratory Tests 09/24 09/24 09/23 [...] % (Auto) (14.0 - 32.0 %) 14.8 [place] % (Auto) (4.8 - 9.0 %) 7.6 Eos % (Auto) (0.3 - 3.7 %) 3.0 Baso % (Auto) (0.0 - 2.0 %) 0.0 Neut # (Auto) (2.0 - 7.6 x10 3/uL) 9.62 H Lymph # (Auto) (1.0 - 3.8 x10 3/uL) 1.93 [place] # (Auto) (0.1 - 0.8 x10 3/uL) [...] 0.1 x10 3/uL) 0.00 Diagnosis, Assessment Plan Consultants: cardiology, endocrinology, hospitalist, infectious disease, podiatry Free Text DxA P Notes Free text DxA P notes: Gangrene of right foot s/p Below- knee amputation Prostate abscess MRSA bacteremia Hx of Diabetes, Diabetic neuropathy HTN ERIKA PLANS: Continue with PT/OT per primary Wound care and Abx as per ID Hepain PPX IV iron BS better but likely to increase with re-initiation of steroids x3 days started by Nephrology for AIN - Endo adjusting insulin pain control Edema about the same, Lasix as per renal Hgb stabilized. continue to monitor cardio following creatine improving K+ level ok BP remains elevated on Hydralazine, Coreg and Norvasc - will stop norvasc and add Clonidine 0.1mg po bid. HR in the 80's. continue prn BP meds at 1459 RPT #:[id number] END OF REPORT [facility] 2022-09-24 06:58:00 [facility] ([facility] Nephrology Progress Note REPORT#:[id number] REPORT STATUS: Signed DATE:09/24/22 TIME: 0658 PATIENT: KARMA ROWLAND UNIT #: [id number] ROOM/BED: [place] [address] : 61 AGE: 56 SEX: M ATTEND: Mj Vences MD ADM AUTHOR: Barrera Ramírez MD * ALL edits or amendments must be made on the electronic/computer document * Subjective Chief complaint: Infected foot HPI: Patient seen and evaluated on 09/09/2022, note started, [...] change from initial, feels okay. Review of Systems Constitutional: Reports: [...] 87 16 160/81 107.5 97 Room air / 1916 36.5 86 16 169/86 113.7 97 Room air / 1521 36.4 82 16 159/82 107.6 97 / 0725 36.3 88 17 149/69 95.3 98 24 hour I O ending at 0700: 03 0700 / 1900 Intake Total 240 Output [...] no edema Musculoskeletal: no CVA tenderness, no tenderness Neuro/QUANTITATIVE ANALYST: alert, 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 Considered stroke alert: no [...] - 32.0 %) 9.6 L 11.3 L [place] % (Auto) (4.8 - 9.0 %) 4.5 L 5.7 Eos % (Auto) (0.3 - 3.7 %) 0.1 L 0.2 L Baso % (Auto) (0.0 - 2.0 %) 0.1 0.0 Neut # (Auto) (2.0 - 7.6 x10 3/uL) 10.02 H 9.79 H Lymph # (Auto) (1.0 - 3.8 x10 3/uL) 1.13 1.35 [place] # (Auto) (0.1 - 0.8 x10 3/uL) [...] and laboratories reviewed. Diabetes mellitus: Insulin: Monitor blood sugar closely and adjust medications as needed, followed by endocrinology. Hypertension: Blood pressure is not well controlled, increase Coreg to 12.5 mg p.o. twice daily: Monitor blood pressure closely and adjust medications as needed Right foot gangrene/infection status post right BKA Anemia: Status post EGD and colonoscopy which were negative for active GI bleeding, patient had work-up in July 2022 which showed very high B12, normal folate, very low iron saturation but very high ferritin which was likely related to his infection, likely patient is very iron deficient, will repeat lab and give IV iron if needed. We will check serum immunofixation. Acute kidney injury: We will check renal bladder ultrasound, check postvoid residual, check urine protein creatinine ratio Hypomagnesemia: We will supplement 09/10/2022 laboratory this morning showed sodium 135, potassium 4.2, CO2 21, BUN 25, creatinine 1.9 continues to worsen, etiology unclear, however his development some eosinophilia not sure if he is developing AIN, suggest changing cefepime to a different class of antibiotic if possible, will check renal bladder ultrasound 09/11/2022 laboratory this morning showed sodium 134, potassium 4.3, CO2 22, BUN 26, creatinine 2 up from 1.9, hopefully creatinine is plateauing, renal ultrasound negative. 09/12/2022 laboratory this morning showed sodium 134, potassium 4.2, CO2 20, BUN 31, creatinine 2.4 continues to worsen, discussed with ID, AIN is probably the etiology of the unexplained deterioration of his renal function, antibiotics to be adjusted by infectious disease, will give Solu-Medrol 125 mg IV daily for 3 days. Significant lower extremity edema, will start Lasix 20 mg p.o. twice daily. 09.13.22: pt was seen and examined. Very thirsty. serum creatinine is worsening today. Vancomycin was stopped yesterday and Solu medrol was started. Mild hypovolemic hyponatremia. Will DC lasix and monitor his renal functions. BP is well controlled. 09.14.22: pt was seen and examined. Feels better but still thirsty. I stopped his lasix. will start NS at 75 cc for [...] plan for kidney biopsy 09/16/2022 laboratory this morning showed sodium 135, potassium 4.5, CO2 20, BUN 60, creatinine 2.7, better down from 2.9, hemoglobin 7.6, platelet 360, blood count 9.5, will give prednisone 80 mg p.o. today, blood pressure is elevated, will add hydralazine 25 mg p.o. 3 times daily, scrotal and LE swelling will give Lasix 40 mg IV x 3 09/17/2022 blood pressure still elevated, will increase hydralazine to 50 mg p.o. 3 times daily, will give 80 mg of prednisone today, urine output with Lasix 4125 , laboratory this morning showed sodium 136, potassium 4.5, CO2 21, BUN 66, creatinine 2.4 down from 2.7, will give 3 more doses of IV Lasix 40 mg every 8 hours 09/18/2022 laboratory this morning showed sodium 138, potassium 4.1, CO2 21, BUN 66, creatinine 2.2 continues to improve, urine output 2.7 L, hemoglobin 7.6, platelet 341, blood count 10.6, will give Lasix 40 mg IV every 8 for 3 doses, start prednisone 60 mg p.o. daily for 3 days, increase hydralazine to 75 mg p.o. 3 times daily. 09/19/2022 blood pressure better, sodium 139, potassium 3.8, CO2 22, BUN 72 up from 66, creatinine 2.3 up from 2.2, will hold off diuretics, urine output reported 2 L, magnesium 1.69 we will give magnesium sulfate 2 g IV x1, continue prednisone. 09/20/2022 laboratory this morning showed sodium 136, potassium 4.2, CO2 21, BUN 76, creatinine 2.2 down from 2.3, hemoglobin 7.6, platelet 302, blood count 12.3 , continue off diuretics 09/21/2022 blood pressure still elevated will increase hydralazine to 100 mg p.o. 3 times daily, hemoglobin 7.6, platelet 296, blood count 13, urine output reported 3025, will start prednisone 50 mg p.o. daily for 3 days, sodium 137, potassium 4.6, CO2 22, BUN 75, creatinine 1.9 down from 2.2 continues to improve. 09/22/2022 laboratory [...] schedule kidney biopsy, hemoglobin 7.8, platelet 306, blood count 11.8 09/24/2022 laboratory this morning showed sodium 144, potassium 5 better, CO2 19 continues sodium bicarbonate, BUN 60 down from 70, creatinine 1.7 down from 2.1, will start Lasix 20 mg p.o. daily, prednisone 40 mg p.o. daily starting tomorrow , okay for discharge home from renal standpoint on 40 mg of prednisone with 5 mg taper every 4 days until off prednisone, sodium bicarbonate 650 mg p.o. 1 twice a day and Lasix 20 mg p.o. daily. Follow-up in clinic in 2 weeks with labs. Consultants: cardiology, endocrinology, hospitalist, infectious disease, podiatry at 0948 [facility] #:[id number] END OF REPORT [facility] 2022-09-23 19:59:00 [facility]) Podiatry Progress Note REPORT#:[id number] REPORT STATUS: Signed DATE:09/23/22 TIME: 1958 PATIENT: KARMA ROWLAND UNIT #: [id number] ROOM/BED: [place] [address] : 61 AGE: 56 SEX: M ATTEND: Mj Vences MD ADM AUTHOR: Liam Jeffrey DPM * ALL edits or amendments must be made on the electronic/computer document * Subjective Chief complaint: left heel ulcer. left ankle pain Patient reports: no confusion, no dizziness, no fatigue, [...] imported from the dietitian's assessment. BMI Calculated: 27.1 Nutrition related diagnosis: Nutrition diagnosis details: Nutrition problem: Altered nutrition labs Nutrition etiology: DM Nutrition signs and symptoms: HYPER/HYPOGLYCEMIA, A1C >14 Nutrition prescription: CONTINUE RENAL DM [...] (Auto) (14.0 - 32.0 %) 9.6 L [place] % (Auto) (4.8 - 9.0 %) 4.5 L Eos % (Auto) (0.3 - 3.7 %) 0.1 L Baso % (Auto) (0.0 - 2.0 %) 0.1 Neut # (Auto) (2.0 - 7.6 x10 3/uL) 10.02 H Lymph # (Auto) (1.0 - 3.8 x10 3/uL) 1.13 [place] # (Auto) (0.1 - 0.8 x10 3/uL) [...] IV abx on PO gabapentin offloading boot joan wraps to ankle, only when OOB with therapy. zinc oxide interchange with bactroban to dorsal left foot Consultants: cardiology, endocrinology, hospitalist, infectious disease, podiatry at 1959 RPT #:[id number] END OF REPORT [facility] 2022-09-23 15:10:00 [facility] ([facility]) Pain Management Progress Note REPORT#:[id number] REPORT STATUS: Signed DATE:09/23/22 TIME: 151 PATIENT: KARMA ROWLAND UNIT #: [id number] ROOM/BED: [place] [address] : 61 AGE: 56 SEX: M ATTEND: Mj Vences MD ADM AUTHOR: Ben Klein PA * ALL edits or amendments must be made on the electronic/computer document * Ben Klein 09/23/22 1510: Subjective [...] fever/chills, chest pain, orthopnea, nausea/vomiting, pruritus, or hallucinations. 14 point ROS undertaken unremarkable except as noted Objective General VS/I O: Vital Signs Date Temp Pulse Resp B/P B/P Mean Pulse Ox FiO2 09/22-09/23 36.3-37.2 84-90 16-18 122-149/64-74 83.1-98.0 96-100 Last Documented: Result Date Time Pulse Ox 98 / 0725 B/P 149/69 09/23 0725 B/P Mean 95.3 09/23 0725 Temp 36.3 09/23 0725 Pulse 88 / 0725 Resp 17 09/23 0725 O2 Delivery [...] Exam General appearance: alert, awake, oriented, no acute distress Head/eyes: atraumatic, EOMI, normocephalic, normal conjunctiva/sclera, PERRLA ENT: normal nose, normal pharynx, moist mucosal membranes Neck: full range of motion, no lymphadenopathy, supple/no meningismus Cardiovascular: regular rate rhythm Respiratory: aerating well Abdomen: soft, non-tender, no distention, active bowel sounds in all quarants. Abdomen quadrants LLQ normal bowel sounds, LUQ normal bowel sounds, RLQ normal bowel sounds, RUQ normal bowel sounds Extremities: moves all, no edema, pedal pulses, right BKA Neuro/QUANTITATIVE ANALYST: 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, no sensory deficits, CNII-XII grossly intact Considered stroke alert: no Skin: dry, intact, no rash Lymphatics: axilla normal Psychiatry: normal affect, normal judgment/insight Results Findings/data: Laboratory Tests: 09/23 09/23 09/23 [...] (Auto) (14.0 - 32.0 %) 9.6 L [place] % (Auto) (4.8 - 9.0 %) 4.5 L Eos % (Auto) (0.3 - 3.7 %) 0.1 L Baso % (Auto) (0.0 - 2.0 %) 0.1 Neut # (Auto) (2.0 - 7.6 x10 3/uL) 10.02 H Lymph # (Auto) (1.0 - 3.8 x10 3/uL) 1.13 [place] # (Auto) (0.1 - 0.8 x10 3/uL) [...] foot foot and ankle gangrene, diabetes, hypertension, hyperlipidemia Past Surgical History: TURP, right BKA Family History: Noncontributory Social History: Denies tobacco, alcohol, or drug use Allergies: NKDA Recent prostate abscess -Status post TURP with unroofing of abscess -IV antibiotics with vancomycin until 09-24-2022 Acute postoperative pain, right foot and ankle gangrene, requiring BKA -Patient is at risk for further amputations or loss of limb due to comorbid conditions -Status post right BKA 08/28/2022 -DC [place] 10/325 1 tablet p.o. every 4 hours as needed pain scale 4 10 -DC Dilaudid 0.5 mg IV daily as needed pain scale 7 10, second line therapy () -Tylenol 650 mg p.o. every 6 hours as needed pain scale 1 3 -Percocet 10/325mg every 4 hours as needed, pain scale 4-10 (09/10) -Lidoderm patch to left ankle daily -IV antibiotics with vancomycin until 09-24-2022 -Local wound care -manageable Diabetic peripheral neuropathy -amitriptyline 25mg PO QHS -Gabapentin 100mg every 8 hours (09/10) -manageable Hypertension -We will monitor hypertension and tachycardia due to pain, and hypotension as well as bradycardia secondary over sedation with narcotics -Hydralazine as needed Elevated LFTs -08/20/22-AST 51, ALT 22 -09/03/2022-AST 15, ALT 7 -Patient will require close monitoring since he is using narcotics with Tylenol Impaired functional mobility, balance, gait, and endurance -PT/OT Antalgic/Impaired gait -PT/OT -Improve strength, endurance, self-care, gait, balance, ADLs -Fall precautions per unit protocol -Pain medications as outlined above Constipation -We will monitor while utilizing opioid narcotic medications. -Adequate fluid intake also discussed. -Colace 100 mg p.o. twice daily as needed -Dulcolax 10 mg rectally daily as needed -Senna lax 8.6mg daily -Miralax 17gm daily -manageable Disposition: percocet 10/325mg q6h prn pain , gabapentin 100mg q8h sent to [facility]/ pharmacy #[id number] [facility] [place] [address] [address] ([facility] [address]) Phone: Patient has failed conservative medical therapy. Patient will require monitoring while utilize narcotic medications [...] whom agrees. Thank you for the consultation. [place] ORCHESTRA LEADER: -database searched, no information found Kingsley Ng 10/09/22 1320: Attestations Physician Attestation Agree w/findings plan: The patient was seen and examined by Ben Klein. I personally developed the care plan, which was continued by the mid-level provider. I was immediately available. at 1512 at 1320 RPT #:[id number] END OF REPORT [facility] 2022-09-23 14:49:00 [facility] Endocrinology Progress Note REPORT#:[id number] REPORT STATUS: Signed DATE:09/23/22 TIME: 1449 PATIENT: KARMA ROWLAND UNIT #: [id number] ROOM/BED: [place] [address] : 61 AGE: 56 SEX: M ATTEND: Mj Vences MD ADM AUTHOR: Braxton Chapin MD * ALL edits or amendments must be made on the electronic/computer document * Subjective Patient reports: no complaints Objective General VS: Last Documented: Result Date Time Pulse Ox 98 09/23 724 B/P 149/69 09/23 724 B/P Mean 95.3 09/23 724 Temp 36.3 09/23 07 Pulse 88 09/23 07 Resp 17 09/23 07 O2 Delivery Room air 09/22 2310 O2 Flow Rate 2 09/08 1322 PATIENT WEIGHT: Weight (lb): 167 Weight (oz): 12.35 Weight (kg): 76.100 Medications: Active Meds + DC'd Last 24 Hrs Sodium Bicarbonate (SODIUM BICARBONATE) 650 MG BID [...] 09/23 09/23 09/22 1050 0516 0501 0331 0781 Chemistry Sodium (134 - 147 mEq/L) 138 [...] (Auto) (14.0 - 32.0 %) 9.6 L [place] % (Auto) (4.8 - 9.0 %) 4.5 L Eos % (Auto) (0.3 - 3.7 %) 0.1 L Baso % (Auto) (0.0 - 2.0 %) 0.1 Neut # (Auto) (2.0 - 7.6 x10 3/uL) 10.02 H Lymph # (Auto) (1.0 - 3.8 x10 3/uL) 1.13 [place] # (Auto) (0.1 - 0.8 x10 3/uL) [...] (Auto) (14.0 - 32.0 %) 11.3 L [place] % (Auto) (4.8 - 9.0 %) 5.7 Eos % (Auto) (0.3 - 3.7 %) 0.2 L Baso % (Auto) (0.0 - 2.0 %) 0.0 Neut # (Auto) (2.0 - 7.6 x10 3/uL) 9.79 H Lymph # (Auto) (1.0 - 3.8 x10 3/uL) 1.35 [place] # (Auto) (0.1 - 0.8 x10 3/uL) [...] (Auto) (14.0 - 32.0 %) 11.3 L [place] % (Auto) (4.8 - 9.0 %) 5.3 Eos % (Auto) (0.3 - 3.7 %) 0.2 L Baso % (Auto) (0.0 - 2.0 %) 0.1 Neut # (Auto) (2.0 - 7.6 x10 3/uL) 10.70 H Lymph # (Auto) (1.0 - 3.8 x10 3/uL) 1.47 [place] # (Auto) (0.1 - 0.8 x10 3/uL) [...] (Auto) (14.0 - 32.0 %) 13.0 L [place] % (Auto) (4.8 - 9.0 %) 6.2 Eos % (Auto) (0.3 - 3.7 %) 0.2 L Baso % (Auto) (0.0 - 2.0 %) 0.1 Neut # (Auto) (2.0 - 7.6 x10 3/uL) 9.84 H Lymph # (Auto) (1.0 - 3.8 x10 3/uL) 1.60 [place] # (Auto) (0.1 - 0.8 x10 3/uL) [...] % (Auto) (14.0 - 32.0 %) 16.5 [place] % (Auto) (4.8 - 9.0 %) 8.4 Eos % (Auto) (0.3 - 3.7 %) 2.4 Baso % (Auto) (0.0 - 2.0 %) 0.2 Neut # (Auto) (2.0 - 7.6 x10 3/uL) 9.50 H Lymph # (Auto) (1.0 - 3.8 x10 3/uL) 2.19 [place] # (Auto) (0.1 - 0.8 x10 3/uL) [...] % (Auto) (14.0 - 32.0 %) 17.4 [place] % (Auto) (4.8 - 9.0 %) 6.9 Eos % (Auto) (0.3 - 3.7 %) 0.1 L Baso % (Auto) (0.0 - 2.0 %) 0.1 Neut # (Auto) (2.0 - 7.6 x10 3/uL) 7.91 H Lymph # (Auto) (1.0 - 3.8 x10 3/uL) 1.85 [place] # (Auto) (0.1 - 0.8 x10 3/uL) [...] (Auto) (14.0 - 32.0 %) 10.2 L [place] % (Auto) (4.8 - 9.0 %) 2.9 L Eos % (Auto) (0.3 - 3.7 %) 0.0 L Baso % (Auto) (0.0 - 2.0 %) 0.1 Neut # (Auto) (2.0 - 7.6 x10 3/uL) 7.58 Lymph # (Auto) (1.0 - 3.8 x10 3/uL) 0.91 L [place] # (Auto) (0.1 - 0.8 x10 3/uL) [...] % (Auto) (14.0 - 32.0 %) 18.6 [place] % (Auto) (4.8 - 9.0 %) 6.7 Eos % (Auto) (0.3 - 3.7 %) 0.2 L Baso % (Auto) (0.0 - 2.0 %) 0.1 Neut # (Auto) (2.0 - 7.6 x10 3/uL) 6.99 Lymph # (Auto) (1.0 - 3.8 x10 3/uL) 1.77 [place] # (Auto) (0.1 - 0.8 x10 3/uL) [...] pH (5.0 - 7.0) 5.0 Ur Specific [place] (1.005 - 1.030) 1.013 Urine Protein (NEGATIVE) [...] (Auto) (14.0 - 32.0 %) 11.3 L [place] % (Auto) (4.8 - 9.0 %) 3.2 L Eos % (Auto) (0.3 - 3.7 %) 0.0 L Baso % (Auto) (0.0 - 2.0 %) 0.1 Neut # (Auto) (2.0 - 7.6 x10 3/uL) 7.35 Lymph # (Auto) (1.0 - 3.8 x10 3/uL) 0.98 L [place] # (Auto) (0.1 - 0.8 x10 3/uL) [...] 09/14 09/14 09/14 09/14 09/13 1130 0736 0524 0598 4439 Chemistry Sodium (134 - 147 mEq/L) 132 [...] (Auto) (14.0 - 32.0 %) 13.9 L [place] % (Auto) (4.8 - 9.0 %) 5.1 Eos % (Auto) (0.3 - 3.7 %) 0.0 L Baso % (Auto) (0.0 - 2.0 %) 0.1 Neut # (Auto) (2.0 - 7.6 x10 3/uL) 7.58 Lymph # (Auto) (1.0 - 3.8 x10 3/uL) 1.31 [place] # (Auto) (0.1 - 0.8 x10 3/uL) [...] Laboratory Tests: 09/13 09/13 09/13 09/12 1105 0583 0455 2016 Chemistry Sodium (134 - 147 [...] (Auto) (14.0 - 32.0 %) 10.4 L [place] % (Auto) (4.8 - 9.0 %) 3.5 L Eos % (Auto) (0.3 - 3.7 %) 0.0 L Baso % (Auto) (0.0 - 2.0 %) 0.1 Neut # (Auto) (2.0 - 7.6 x10 3/uL) 8.34 H Lymph # (Auto) (1.0 - 3.8 x10 3/uL) 1.02 [place] # (Auto) (0.1 - 0.8 x10 3/uL) [...] % (Auto) (14.0 - 32.0 %) 15.0 [place] % (Auto) (4.8 - 9.0 %) 7.9 Eos % (Auto) (0.3 - 3.7 %) 3.8 H Baso % (Auto) (0.0 - 2.0 %) 0.3 Neut # (Auto) (2.0 - 7.6 x10 3/uL) 6.34 Lymph # (Auto) (1.0 - 3.8 x10 3/uL) 1.31 [place] # (Auto) (0.1 - 0.8 x10 3/uL) [...] % (Auto) (14.0 - 32.0 %) 16.1 [place] % (Auto) (4.8 - 9.0 %) 9.1 H Eos % (Auto) (0.3 - 3.7 %) 5.6 H Baso % (Auto) (0.0 - 2.0 %) 0.5 Neut # (Auto) (2.0 - 7.6 x10 3/uL) 5.35 Lymph # (Auto) (1.0 - 3.8 x10 3/uL) 1.27 [place] # (Auto) (0.1 - 0.8 x10 3/uL) [...] % (Auto) (14.0 - 32.0 %) 15.5 [place] % (Auto) (4.8 - 9.0 %) 8.5 Eos % (Auto) (0.3 - 3.7 %) 5.5 H Baso % (Auto) (0.0 - 2.0 %) 0.4 Neut # (Auto) (2.0 - 7.6 x10 3/uL) 5.94 Lymph # (Auto) (1.0 - 3.8 x10 3/uL) 1.33 [place] # (Auto) (0.1 - 0.8 x10 3/uL) [...] % (Auto) (14.0 - 32.0 %) 16.1 [place] % (Auto) (4.8 - 9.0 %) 9.2 H Eos % (Auto) (0.3 - 3.7 %) 4.7 H Baso % (Auto) (0.0 - 2.0 %) 0.4 Neut # (Auto) (2.0 - 7.6 x10 3/uL) 6.38 Lymph # (Auto) (1.0 - 3.8 x10 3/uL) 1.49 [place] # (Auto) (0.1 - 0.8 x10 3/uL) [...] (Auto) (14.0 - 32.0 %) 13.7 L [place] % (Auto) (4.8 - 9.0 %) 7.2 Eos % (Auto) (0.3 - 3.7 %) 4.8 H Baso % (Auto) (0.0 - 2.0 %) 0.3 Neut # (Auto) (2.0 - 7.6 x10 3/uL) 6.64 Lymph # (Auto) (1.0 - 3.8 x10 3/uL) 1.24 [place] # (Auto) (0.1 - 0.8 x10 3/uL) [...] abdomen. Impression By: [email or web address] - Roger Parra M.D. ULTRASOUND - [facility] 09/05 1146 Report Impression - Status: SIGNED Entered: 09/05/2022 1333 IMPRESSION: 1. No evidence of deep vein thrombosis. 2. Complex heterogeneous hypoechoic fluid collection in the left calf region measuring 8.4 x 2.8 x 2.5 cm; there is no internal vascularity or peripheral hyperemia. May represent a hematoma. Impression By: [id number] - Mert Ga M.D. RADIOLOGY - XR CHEST 1 V 09/05 1432 Report Impression - Status: SIGNED Entered: 09/05/2022 1515 IMPRESSION: Minimal bibasilar pulmonary opacities Impression By: Jude Jacobo.D. Laboratory Tests: 09/04 09/04 09/04 09/04 09/04 [...] COLB STOOL 1.Diabetes mellitus type 2 uncontrolled complications. 2. 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 4. Sepsis 5. Prostate abscess. 6. Anemia 7. Chronic renal failure. Blood sugar 217-231 mg/dL.H/H 8.11/17. Adjust insulin dose. PT and OT. at [facility] #:[id number] END OF REPORT [facility] 2022-09-23 14:48:00 [facility] Rehab Team Conference REPORT#:[id number] REPORT STATUS: Signed DATE:09/23/22 TIME: 8 PATIENT: KARMA ROWLAND UNIT #: [id number] ROOM/BED: [place] [address] : 63 AGE: 56 SEX: M ATTEND: Mj Vences MD ADM AUTHOR: Mj Vences MD * ALL edits or amendments must be made on the electronic/computer document * Rehabilitation Team Conference Weekly Team Conference Team conf information: Date of conference: 09/23/22 Conference type: Interim Conference scribe: Columba Drew PTA INTERDISCIPLINARY TEAM MEETING PARTICIPANTS: TITLE NAME MD SELENA Butts, RN PT Anthony Ro, PT OT Williams Mckeon OT CM/TRINO Burger NO ATTENDEE [facility] Amanda Lai, KEVIN Staff (8) NO ATTENDEE Staff (9) NO ATTENDEE OTHER NAME CREDENTIALS 1 YOU ANTHONY DIETITIAN 2 FUNCTIONAL CHANGE: TYPE ADMISSION TOTAL INTERIM TOTAL CHANGE Self care 20 34 14 Transfer 17 29 12 Mobility 8 8 0 Wheelchair distance: 200 FEET 400 FEET Mobility description: BOWEL AND BLADDER STATUS: Bowel continence admission rating: Bladder continence admission rating: Not applicable Bowel and bladder team conference update: CONTINENT OF BOWEL LBM 09/22. [place]ARE[place] CATHETER DRAINING WELL W/O KINKS INTERDISCIPLINARY TEAM UPDATES: LYDIA team conference update: PT IS AOX4 SPEECH CLEAR. EXPRESSES WANTS AND NEEDS. ROOM AIR. CONTINENT OF BOWEL LBM 5. [place]ARE[place] CATHETER DRAINING WELL W/O KINKS. STAND [...] W/ELEV LEG RESTS,RW AND SB/GAIT BELT FOR DC OT [...] update 1: P.O INTAKE: >75% OF RENAL DIET. Other discipline update 2: Other discipline [...] Twelve steps discharge goal: Med cond/safety concern [place] 150 feet discharge goal: Independent (6) Goal 1 - Bowel function: PATIENT WILL REMAIN CONTINENT OF BOWEL Goal 2 - Bladder function: PATIENT WILL REGAIN BLADDER CONTROL Nursing goal 3: PATIENT WILL BE FREE FROM FALLS DURING STAY Nursing goal 4: PATIENT WILL MAINTAIN SKIN INTEGRITY Nursing goal 5: DISCHARGE PLANNING: Barriers to discharge: Fall risk, Endurance, Pain, Caregiver, NWB RLE, DIFFICULTY WITH TRANSFERS Strategies for D/C barriers: Fall recovery training, Evaluate pain control, Scheduled rest breaks, LE EX, WC MOB, TRANSFER TRAINING, CAREGIVER TRAINING Estimated length of stay in days: 17 Anticipated discharge date: 09/24/22 Discharge date adjustment comment: PENDING MEDICAL CLEARANCE Identified financial and/or community resource needs: Family/Caregiver training days: PATIENT AND FAMILY WILL BE EDUCATED ON USE OF GAIT BELT TO LOWER PT TO THE FLOOR IN THE EVENT OF LOSS OF BALANCE TO PREVENT FALL OR INJURY. FAMILIY TRAINING SCHEDULED FOR 09/23/22 [place] day (DATE): 09/23/22 Expected discharge destination: Home Anticipated services upon discharge: Physical therapy, Nursing, Occupational therapy, Home health Anticipated discharge equipment: Drop arm bedside commode, sliding board, 18" WC W/ELEV LEG RESTS, RW Impairment group: amputation of limb NOTE Document ONLY ONE Impairment Group Amputation of limb: unilateral lower limb (R BKA) Etiologic diagnosis: Gas gangrene of right foot and ankle S/P R BKA Review of comorbidities: Postoperative anemia, ERIKA, DM, HTN, diabetic neuropathy, HLD Review/Recommendations Attestation: This interdisciplinary team conference was led by me and I concur with all decisions made during the team conference and revisions to the individualized overall plan of care. IRF cont stay criteria See my note at 1449 RPT #:[id number] END OF REPORT [facility] 2022-09-23 14:25:00 [facility] ([facility]) Infectious Dis. Progress Note REPORT#:[id number] REPORT STATUS: Signed DATE:09/23/22 TIME: 1425 PATIENT: KARMA ROWLAND UNIT #: [id number] ROOM/BED: [place] [address] : 63 AGE: 56 SEX: M ATTEND: Mj Vences MD ADM AUTHOR: Antohny Curtis MD * ALL edits or amendments must be made on the electronic/computer document * Subjective Chief complaint: Follow-up on MRSA bacteremia, prostatic abscess. HPI: Patient reports feeling better subjectively. Denies acute or new complaints. No major overnight events. Objective General VS/I O: Vital Signs Date Temp Pulse Resp B/P B/P Mean Pulse Ox FiO2 /-09/23 97.3-99.0 84-90 16-18 122-149/64-74 83.1-98.0 96-100 Last Documented: Result Date Time Pulse Ox 98 / 0725 B/P 149/69 / 0725 B/P Mean 95.3 / 0725 Temp [...] Exam General appearance: alert, awake, no acute distress Cardiovascular: normal heart sounds, regular rate rhythm Respiratory: clear to auscultation, aerating well Abdomen: non-tender, soft, no distention Extremities: edema (in left leg and thigh improved), moves all, right BKA Left foot wound +dressing in place Neuro/QUANTITATIVE ANALYST: alert, oriented X 3 Considered stroke alert: [...] intramuscular compartments of the foot, compatible with gas -forming infection. Patient's blood cultures have come back positive for MRSA in 2 out of 2 sets. Patient has had persistent positive cultures for MRSA. He underwent a debridement of his foot on 08/19/2022 and cultures grew MRSA. Patient was started on vancomycin and clindamycin on 08/18/2022. His MRI showed a prostate abscess. 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 Pt underwent a transrectal aspiration and unroofing of prostate abscess 08/26/2022 and cultures grew Citrobacter, Enterococcus, MRSA. He also had a BKA of right leg 2022. JIMENA done 09/02/2022, which was negative for vegetations. Patient was transferred to Rehab on 09/02/2022. *MRSA bacteremia, refractory, now cleared *Prostatic abscess, s/p unroofing 08/26/2022 *ERIKA *Hyponatremia *Diabetic neuropathy *Diabetes mellitus type 2 *Hypertension *Anemia -Afebrile; although with an isolated low-grade temperature spike of 37.2 C. -Leukocytosis of 11.8 on today's CBC noted; overall, downtrending. -No recent cultures. Last blood cultures from 08/28/22 negative x2. Plan: -On daptomycin and meropenem. -Finishing treatment 09/24/2022 (stop after tomorrow's dosages). -Would finish treatment as planned and then monitor off antimicrobials. -Continue supportive care. at 1426 RPT #:[id number] END OF REPORT [facility] 2022-09-23 13:51:00 [facility] ([facility]) Cardiology Progress Note REPORT#:[id number] REPORT STATUS: Signed DATE:09/23/22 TIME: 1351 PATIENT: KARMA ROWLAND UNIT #: [id number] ROOM/BED: [place] [address] : 61 AGE: 56 SEX: M ATTEND: Mj Vences MD ADM AUTHOR: Rohit Benitez LOG ROPER * ALL edits or amendments must be made on the electronic/computer document * Rhoit Benitez 09/23/22 1351: Subjective Chief complaint: weakness [...] Hrs Sodium Bicarbonate (SODIUM BICARBONATE) 650 MG BID [...] regular rate and rhythm, no ectopy, no gallop Respiratory: clear to auscultation, no distress Abdomen: soft, non-tender Genitourinary: urinary catheter Lower extremity: LE assessment: edema, normal temperature Neuro/QUANTITATIVE ANALYST: alert, oriented X 3 Considered stroke alert: no Wound/incision: Location: right bka Psychiatry: normal affect, normal judgment/insight, normal mood Results Findings/Data: Laboratory Tests 09/23 [...] (Auto) (14.0 - 32.0 %) 9.6 L [place] % (Auto) (4.8 - 9.0 %) 4.5 L Eos % (Auto) (0.3 - 3.7 %) 0.1 L Baso % (Auto) (0.0 - 2.0 %) 0.1 Neut # (Auto) (2.0 - 7.6 x10 3/uL) 10.02 H Lymph # (Auto) (1.0 - 3.8 x10 3/uL) 1.13 [place] # (Auto) (0.1 - 0.8 x10 3/uL) [...] 2.22 Diagnosis, Assessment Plan Consultants: cardiology, endocrinology, hospitalist, infectious disease, podiatry Free [...] rehab for physical therapy. Known cardiac history of hypertension and hyperlipidemia. Vital signs stable. Echocardiogram with [...] BMP in the morning. Supportive care. Plan of care discussed with [...] Continue hold diuretic for now. Supportive care. Plan of care discussed with patient, RN and Dr. Parham. 09/15: Repeat echocardiogram showed LVEF of 55 to 60%, no regional wall motion abnormalities, left ventricular diastolic function parameters are indeterminate, mildly dilated [...] Dr. Parham. 09/18: Blood pressure remains elevated due [...] volume status. No new cardiac complaint. Continue steroid taper per nephrology. Progressing in therapy. Discharge planning. [...] remains from cardiac standpoint. Blood pressure elevated, started on amlodipine 10 mg daily. Continue steroid therapy [...] RN and Dr. Parham. Napoleon Parham 09/27/22 1304: Diagnosis, Assessment Plan Additional comments: Patient was seen and examined at bedside, agree with above assessment and plan as documented by nurse practitioner. Will follow. at 1648 at 1655 RPT #:[id number] END OF REPORT [facility] 2022-09-23 10:57:00 [facility] Hospitalist Progress Note REPORT#:[id number] REPORT STATUS: Signed DATE:09/23/22 TIME: 1057 PATIENT: KARMA ROWLAND UNIT #: [id number] ROOM/BED: [place] [address] : 61 AGE: 56 SEX: M ATTEND: Mj Vences MD ADM AUTHOR: Wilbert Ramires MD * ALL edits or amendments must be made on the electronic/computer document * Subjective Chief complaint: follow up [...] Hrs Sodium Bicarbonate (SODIUM BICARBONATE) 650 MG BID [...] no JVD Cardiovascular: normal heart sounds, regular rate rhythm Respiratory: aerating well, clear to auscultation Abdomen: non-tender, normal bowel sounds Genitourinary: no bladder distention Extremities: edema (1+ pitting edema to thigh), moves all, normal capillary refill Musculoskeletal: normal inspection Neuro/QUANTITATIVE ANALYST: alert, oriented X 3, 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 Considered stroke alert: no Skin: dry, intact Psychiatry: normal affect, normal judgment/insight Results Findings/Data: Laboratory Tests 09/23 09/23 09/23 [...] (Auto) (14.0 - 32.0 %) 9.6 L [place] % (Auto) (4.8 - 9.0 %) 4.5 L Eos % (Auto) (0.3 - 3.7 %) 0.1 L Baso % (Auto) (0.0 - 2.0 %) 0.1 Neut # (Auto) (2.0 - 7.6 x10 3/uL) 10.02 H Lymph # (Auto) (1.0 - 3.8 x10 3/uL) 1.13 [place] # (Auto) (0.1 - 0.8 x10 3/uL) [...] 0.1 x10 3/uL) 0.00 Diagnosis, Assessment Plan Consultants: cardiology, endocrinology, hospitalist, infectious disease, podiatry Free Text DxA P Notes Free text DxA P notes: Gangrene of right foot s/p Below- knee amputation Prostate abscess MRSA bacteremia Hx of Diabetes, Diabetic neuropathy HTN ERIKA PLANS: Continue with PT/OT per primary Wound care and Abx as per ID Hepain PPX IV iron BS better but likely to increase with re-initiation of steroids x3 days started by Nephrology for AIN - Endo adjusting insulin pain control Edema about the same, Lasix as per renal Hgb stabilized. continue to monitor BP elevated. continue to adjust meds cardio following K+ slightly up - give kayexalate creatinine up a little - continue to trend at 0806 RPT #:[id number] END OF REPORT [facility] 2022-09-23 10:13:00 [facility] ([facility]) Gastroenterology Progress Note REPORT#:[id number] REPORT STATUS: Signed DATE:09/23/22 TIME: 1013 PATIENT: KARMA ROWLAND UNIT #: [id number] ROOM/BED: [place] [address] : 61 AGE: 56 SEX: M ATTEND: Mj Vences MD ADM AUTHOR: Kassie Avitia MD * ALL edits or amendments must be made on the electronic/computer document * Subjective HPI: Patient is a 56-year-old male with history of diabetes mellitus type 2 and hypertension who was initially admitted for altered mental status and right- sided foot infection. [...] gym. Tolerating diet. Normal BMs. Stable H/H 09/14-Sitting up in wheelchair, family at bedside. Denies [...] kidney disease and mild oozing from his stump. Can consider video capsule endoscopy as outpt if evidence of dropping H/H H/H remains stable Consider reducing frequency of H/H check tolerating diet and moving his bowels Will follow along Consultants: cardiology, endocrinology, hospitalist, infectious disease, podiatry at 1014 RPT #:[id number] END OF REPORT [facility] 2022-09-23 08:22:00 [facility] ([facility]) Rehab Progress Note REPORT#:[id number] REPORT STATUS: Signed DATE:09/23/22 TIME: 821 PATIENT: KARMA ROWLAND UNIT #: [id number] ROOM/BED: [place] [address] : 61 AGE: 56 SEX: M ATTEND: Mj Vences MD ADM AUTHOR: Mj Vences MD * ALL edits or amendments must be made on the electronic/computer document * Subjective Chief complaint: Rehab follow-up Patient doing well, making good progress BKA without bleeding Edema improving Eating 75-100% at bedside + BM Denies DICKENS/N/V/D/CP 14 systems reviewed and neg. except that [...] is wearing a nestor-tech orthotic for right knee/BKA protection. Prior to [...] Hrs Sodium Bicarbonate (SODIUM BICARBONATE) 650 MG BID [...] Exam General appearance: alert, awake, no acute distress Psych: alert, normal affect, oriented x 3 HEENT: anicteric, sclera clear Neck: supple, no JVD Cardiovascular: S1/S2, no murmur Respiratory: aerating well, clear bilaterally Abdomen: bowel sounds present, non-distended, soft, non-tender Skin: no rash, R BKA HEALING. L ankle/foot wrapped with kerlix Musculoskeletal - general: Musculoskeletal - general: swelling (LLE, calve NT, homans neg), BUE 5/5, LLE 4/5, R hip 3- Neuro/QUANTITATIVE ANALYST: alert, oriented X 3, CNII-XII intact Results [...] (Auto) (14.0 - 32.0 %) 9.6 L [place] % (Auto) (4.8 - 9.0 %) 4.5 L Eos % (Auto) (0.3 - 3.7 %) 0.1 L Baso % (Auto) (0.0 - 2.0 %) 0.1 Neut # (Auto) (2.0 - 7.6 x10 3/uL) 10.02 H Lymph # (Auto) (1.0 - 3.8 x10 3/uL) 1.13 [place] # (Auto) (0.1 - 0.8 x10 3/uL) [...] (Man) (0.0 - 0.1 x10 3/uL) 0.00 0509/22 1841 1537 Chemistry POC Glucose (70 - 110 MG/DL) 156 H 118 H Diagnosis, Assessment Plan Free Text A P: Assessment: 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 Leroy Significant impairment in self-care, ADLs and functional mobility Impaired mobility and gait Acute postoperative pain right BKA Diabetic polyneuropathy DKA, DM 2, poorly controlled, A1c greater than 14 PAD MRSA bacteremia/sepsis-treated on acute ERIKA Severe hyponatremia-resolved HTN Acute on chronic anemia requiring multiple transfusions, possible GI bleed Left calf hematoma Edema and clinical arthritis left ankle Early decubitus to left heel/DTI dorsal left midfoot Prostatic abscess 08/26: S/p transrectal ultrasound aspiration of abscess and transurethral resection of prostate and unroofing of abscess 09/12: Echo: EF 55-59%, grade 1 diastolic dysfunction 09/02: JIMENA negative for vegetation MRSA OF [place] 09/08:s/p EGD and colonoscopy. EGD showed mild gastritis. Colonoscopy showed rectal polyp that was resected by snare (tubular adenoma)-repeat colonoscopy in 5 years Plan: -PLOF: Independent with transfers and gait -Amputee rehab program -Continue PT and OT -15/12 rehabilitation nursing care. -Case management for safe discharge planning. -Decubitus prevention -Early decubitus to left heel/DTI dorsal left midfoot-zinc [...] 16.7 dietary consultation, protein supplements to promote healing -Diabetes-A1c 14, tight glycemia control- endocrine on board, insulin adjustments -Endocrinology, ID, podiatry, cardiology, IM consulted -Pain management adjusting pain medications -Anemia, patient required multiple units of PRBCs on acute, FOBT positive -IV Protonix-consult GI-serial H H-no evidence of gross bleeding-discussed with Dr. Trinidad -Constipation-abdominal mzpbhiyd-CAB-bdxeio-CW Senokot and MiraLAX, DSP -MRSA OF [place]AR[place] on Bactroban protocol -LLE edema-venous Doppler with complex heterogeneous hypoechoic fluid collection in the left calf region measuring 8.4, 2.8, 2.5 cm suggestive of hematoma. On low-dose Lasix. Joan wrap LLE -LE edema could be related to hypoalbuminemia leading to third spacing-edema improving -Generalized edema-some shortness of breath and abdominal distention-cardiology gave a dose of IV Lasix-monitor urine output, daily weights-SOB resolved -09/05-venous Doppler of LLE-negative for DVT-Joan wrap dressing and elevation -Anemia-hemoglobin 8.3, 7.7, 8.2, 7.6, 8, 7.7 transfused 2 units of PRBC on 09/05 -09/08: s/p EGD and colonoscopy. EGD showed mild gastritis. Colonoscopy showed rectal polyp that was resected by snare. Anemia likely secondary to chronic kidney disease. Consult renal. -Pathology of polyp came back as tubular adenoma. recommend repeating colonoscopy in 5 years as per GI -Renal ultrasound negative -MRSA bacteremia and prostatic abscess-WBC 12-monitor on Merrem and Daptomycin til 09/24 as per ID -Lasix as per nephrology -Completed Solu-Medrol on prednisone -09/12: Echo-EF 55-60%, indeterminate diastolic function parameters as per cardio -BP elevated. continue to adjust meds -BS better but likely to increase with re-initiation of steroids x3 days started by Nephrology for AIN -Endo adjusting insulin -Car transfer training 09/23 -Labs reviewed-hemoglobin stable at 7.8-GI recommends decrease checking H H and video capsule endoscopy as outpatient -09/23/2022 laboratory this morning showed sodium 138, potassium 5.6 we will give Kayexalate 30 g p.o. x2 doses, CO2 19 trending down, will start sodium bicarbonate 1 p.o. twice daily, BUN 70, creatinine 2.1, if creatinine continues to be elevated, will schedule kidney biopsy, hemoglobin 7.8, platelet 306, blood count 11.8-as per renal -Nutritional indices improved -Right RMA-fppgiwa-rqbdgktv resolved, dressings changed today-no bleeding after heparin discontinued, SCD to left leg -Advance therapies as tolerated-discussed treatment plan with patient and -Patient progressing with therapies and is contact-guard assist with transfers for control and safety, wheelchair mobility 40 feet modified independent. -Patient may need kidney biopsy [...] 10-15 WITH LIMITED HEEL LIFT OFF AT THIS TIME. PM R Please see team note. Plan and goals discussed with the patient. I agree with the teams finding ELOS- [09/24] on IV antibiotics until 09/24 if medically cleared DC-Home with -Home health DME-sliding board, [...] Complete Consultants: cardiology, endocrinology, hospitalist, infectious disease, podiatry Rehab attestation: Face to face exam completed. Treatment plan discussed with patient. Meets continued stay criteria. Agree with interdisciplinary treatment plan. at 1448 RPT #:[id number] END OF REPORT [facility] 2022-09-23 07:17:00 [facility] ([facility] Nephrology Progress Note REPORT#:[id number] REPORT STATUS: Signed DATE:09/23/22 TIME: 07 PATIENT: KARMA ROWLAND UNIT #: [id number] ROOM/BED: [place] [address] : 63 AGE: 56 SEX: M ATTEND: Mj Vences MD ADM AUTHOR: Barrera Ramírez MD * ALL edits or amendments must be made on the electronic/computer document * Subjective Chief complaint: Infected foot HPI: Patient seen and evaluated on 09/09/2022, note started, [...] change from initial, feels okay. Review of Systems Constitutional: Reports: [...] no edema Musculoskeletal: no CVA tenderness, no tenderness Neuro/QUANTITATIVE ANALYST: alert, 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 Considered stroke alert: no [...] %) 9.6 L 11.3 L 11.3 L [place] % (Auto) (4.8 - 9.0 %) 4.5 L 5.7 5.3 Eos % (Auto) (0.3 - 3.7 %) 0.1 L 0.2 L 0.2 L Baso % (Auto) (0.0 - 2.0 %) 0.1 0.0 0.1 Neut # (Auto) (2.0 - 7.6 x10 3/uL) 10.02 H 9.79 H 10.70 H Lymph # (Auto) (1.0 - 3.8 x10 3/uL) 1.13 1.35 1.47 [place] # (Auto) (0.1 - 0.8 x10 3/uL) [...] (Auto) (14.0 - 32.0 %) 9.6 L [place] % (Auto) (4.8 - 9.0 %) 4.5 L Eos % (Auto) (0.3 - 3.7 %) 0.1 L Baso % (Auto) (0.0 - 2.0 %) 0.1 Neut # (Auto) (2.0 - 7.6 x10 3/uL) 10.02 H Lymph # (Auto) (1.0 - 3.8 x10 3/uL) 1.13 [place] # (Auto) (0.1 - 0.8 x10 3/uL) [...] 3/uL) 0.00 Diagnosis, Assessment Plan Free Text A P: Patient seen and evaluated, discussed with care team, images and laboratories reviewed. Diabetes mellitus: Insulin: Monitor blood sugar closely and adjust medications as needed, followed by endocrinology. Hypertension: Blood pressure is not well controlled, increase Coreg to 12.5 mg p.o. twice daily: Monitor blood pressure closely and adjust medications as needed Right foot gangrene/infection status post right BKA Anemia: Status post EGD and colonoscopy which were negative for active GI bleeding, patient had work-up in July 2022 which showed very high B12, normal folate, very low iron saturation but very high ferritin which was likely related to his infection, likely patient is very iron deficient, will repeat lab and give IV iron if needed. We will check serum immunofixation. Acute kidney injury: We will check renal bladder ultrasound, check postvoid residual, check urine protein creatinine ratio Hypomagnesemia: We will supplement 09/10/2022 laboratory this morning showed sodium 135, potassium 4.2, CO2 21, BUN 25, creatinine 1.9 continues to worsen, etiology unclear, however his development some eosinophilia not sure if he is developing AIN, suggest changing cefepime to a different class of antibiotic if possible, will check renal bladder ultrasound 09/11/2022 laboratory this morning showed sodium 134, potassium 4.3, CO2 22, BUN 26, creatinine 2 up from 1.9, hopefully creatinine is plateauing, renal ultrasound negative. 09/12/2022 laboratory this morning showed sodium 134, potassium 4.2, CO2 20, BUN 31, creatinine 2.4 continues to worsen, discussed with ID, AIN is probably the etiology of the unexplained deterioration of his renal function, antibiotics to be adjusted by infectious disease, will give Solu-Medrol 125 mg IV daily for 3 days. Significant lower extremity edema, will start Lasix 20 mg p.o. twice daily. 09.13.23: pt was seen and examined. Very thirsty. serum creatinine is worsening today. Vancomycin was stopped yesterday and Solu medrol was started. Mild hypovolemic hyponatremia. Will DC lasix and monitor his renal functions. BP is well controlled. 23: pt was seen and examined. Feels better but still thirsty. I stopped his lasix. will start NS at 75 cc for [...] plan for kidney biopsy 09/16/2022 laboratory this morning showed sodium 135, potassium 4.5, CO2 20, BUN 60, creatinine 2.7, better down from 2.9, hemoglobin 7.6, platelet 360, blood count 9.5, will give prednisone 80 mg p.o. today, blood pressure is elevated, will add hydralazine 25 mg p.o. 3 times daily, scrotal and LE swelling will give Lasix 40 mg IV x 3 09/17/2022 blood pressure still elevated, will increase hydralazine to 50 mg p.o. 3 times daily, will give 80 mg of prednisone today, urine output with Lasix 4125 , laboratory this morning showed sodium 136, potassium 4.5, CO2 21, BUN 66, creatinine 2.4 down from 2.7, will give 3 more doses of IV Lasix 40 mg every 8 hours 09/18/2022 laboratory this morning showed sodium 138, potassium 4.1, CO2 21, BUN 66, creatinine 2.2 continues to improve, urine output 2.7 L, hemoglobin 7.6, platelet 341, blood count 10.6, will give Lasix 40 mg IV every 8 for 3 doses, start prednisone 60 mg p.o. daily for 3 days, increase hydralazine to 75 mg p.o. 3 times daily. 09/19/2022 blood pressure better, sodium 139, potassium 3.8, CO2 22, BUN 72 up from 66, creatinine 2.3 up from 2.2, will hold off diuretics, urine output reported 2 L, magnesium 1.69 we will give magnesium sulfate 2 g IV x1, continue prednisone. 09/20/2022 laboratory this morning showed sodium 136, potassium 4.2, CO2 21, BUN 76, creatinine 2.2 down from 2.3, hemoglobin 7.6, platelet 302, blood count 12.3 , continue off diuretics 09/21/2022 blood pressure still elevated will increase hydralazine to 100 mg p.o. 3 times daily, hemoglobin 7.6, platelet 296, blood count 13, urine output reported 3025, will start prednisone 50 mg p.o. daily for 3 days, sodium 137, potassium 4.6, CO2 22, BUN 75, creatinine 1.9 down from 2.2 continues to improve. 09/22/2022 laboratory [...] schedule kidney biopsy, hemoglobin 7.8, platelet 306, blood count 11.8 Consultants: cardiology, endocrinology, hospitalist, infectious disease, podiatry at 0930 RPT #:[id number] END OF REPORT [facility] 2022-09-22 20:43:00 [facility]) Podiatry Progress Note REPORT#:[id number] REPORT STATUS: Signed DATE:09/22/22 TIME: 2042 PATIENT: KARMA ROWLAND UNIT #: [id number] ROOM/BED: [place] [address] : 63 AGE: 56 SEX: M ATTEND: Mj Vences MD ADM AUTHOR: Liam Jeffrey DPM * ALL edits or amendments must be made on the electronic/computer document * Subjective Chief complaint: left heel [...] imported from the dietitian's assessment. BMI Calculated: 27.1 Nutrition related diagnosis: Nutrition diagnosis details: Nutrition problem: Altered nutrition labs Nutrition etiology: DM Nutrition signs and symptoms: HYPER/HYPOGLYCEMIA, A1C >14 Nutrition prescription: CONTINUE RENAL DM DIET Dietitian name: You Palmer, DIET Assessment completed: 09/18/22 Physical Exam General appearance: alert, awake, oriented, pleasant, no respiratory distress Wound/incision: Location: left foot [...] (Auto) (14.0 - 32.0 %) 11.3 L [place] % (Auto) (4.8 - 9.0 %) 5.7 Eos % (Auto) (0.3 - 3.7 %) 0.2 L Baso % (Auto) (0.0 - 2.0 %) 0.0 Neut # (Auto) (2.0 - 7.6 x10 3/uL) 9.79 H Lymph # (Auto) (1.0 - 3.8 x10 3/uL) 1.35 [place] # (Auto) (0.1 - 0.8 x10 3/uL) [...] 3/uL) 0.00 Diagnosis, Assessment Plan Free Text A P: DM with neuropathy early decub ulcer left heel OA/edema left ankle early ulcer/DTI dorsal left midfoot zinc oxide to foot and heel foam to heel on IV abx on PO gabapentin offloading boot joan wraps to ankle, only when OOB with therapy. zinc oxide interchange with bactroban to dorsal left foot Consultants: cardiology, endocrinology, hospitalist, infectious disease, podiatry at 2046 RPT #:[id number] END OF REPORT [facility] 2022-09-22 17:39:00 [facility]) Endocrinology Progress Note REPORT#:[id number] REPORT STATUS: Signed DATE:09/22/22 TIME: 1739 PATIENT: KARMA ROWLAND UNIT #: [id number] ROOM/BED: [place] [address] : 63 AGE: 56 SEX: M ATTEND: Mj Vences MD ADM AUTHOR: Braxton Chapin MD * ALL edits or amendments must be made on the electronic/computer document * Subjective Patient reports: no complaints [...] (Auto) (14.0 - 32.0 %) 11.3 L [place] % (Auto) (4.8 - 9.0 %) 5.7 Eos % (Auto) (0.3 - 3.7 %) 0.2 L Baso % (Auto) (0.0 - 2.0 %) 0.0 Neut # (Auto) (2.0 - 7.6 x10 3/uL) 9.79 H Lymph # (Auto) (1.0 - 3.8 x10 3/uL) 1.35 [place] # (Auto) (0.1 - 0.8 x10 3/uL) [...] (Auto) (14.0 - 32.0 %) 11.3 L [place] % (Auto) (4.8 - 9.0 %) 5.3 Eos % (Auto) (0.3 - 3.7 %) 0.2 L Baso % (Auto) (0.0 - 2.0 %) 0.1 Neut # (Auto) (2.0 - 7.6 x10 3/uL) 10.70 H Lymph # (Auto) (1.0 - 3.8 x10 3/uL) 1.47 [place] # (Auto) (0.1 - 0.8 x10 3/uL) [...] 09/20 09/20 09/20 09/19 1140 0922 [id number] 1921 Chemistry Sodium (134 - 147 mEq/L) [...] (Auto) (14.0 - 32.0 %) 13.0 L [place] % (Auto) (4.8 - 9.0 %) 6.2 Eos % (Auto) (0.3 - 3.7 %) 0.2 L Baso % (Auto) (0.0 - 2.0 %) 0.1 Neut # (Auto) (2.0 - 7.6 x10 3/uL) 9.84 H Lymph # (Auto) (1.0 - 3.8 x10 3/uL) 1.60 [place] # (Auto) (0.1 - 0.8 x10 3/uL) [...] % (Auto) (14.0 - 32.0 %) 16.5 [place] % (Auto) (4.8 - 9.0 %) 8.4 Eos % (Auto) (0.3 - 3.7 %) 2.4 Baso % (Auto) (0.0 - 2.0 %) 0.2 Neut # (Auto) (2.0 - 7.6 x10 3/uL) 9.50 H Lymph # (Auto) (1.0 - 3.8 x10 3/uL) 2.19 [place] # (Auto) (0.1 - 0.8 x10 3/uL) [...] % (Auto) (14.0 - 32.0 %) 17.4 [place] % (Auto) (4.8 - 9.0 %) 6.9 Eos % (Auto) (0.3 - 3.7 %) 0.1 L Baso % (Auto) (0.0 - 2.0 %) 0.1 Neut # (Auto) (2.0 - 7.6 x10 3/uL) 7.91 H Lymph # (Auto) (1.0 - 3.8 x10 3/uL) 1.85 [place] # (Auto) (0.1 - 0.8 x10 3/uL) [...] (Auto) (14.0 - 32.0 %) 10.2 L [place] % (Auto) (4.8 - 9.0 %) 2.9 L Eos % (Auto) (0.3 - 3.7 %) 0.0 L Baso % (Auto) (0.0 - 2.0 %) 0.1 Neut # (Auto) (2.0 - 7.6 x10 3/uL) 7.58 Lymph # (Auto) (1.0 - 3.8 x10 3/uL) 0.91 L [place] # (Auto) (0.1 - 0.8 x10 3/uL) [...] % (Auto) (14.0 - 32.0 %) 18.6 [place] % (Auto) (4.8 - 9.0 %) 6.7 Eos % (Auto) (0.3 - 3.7 %) 0.2 L Baso % (Auto) (0.0 - 2.0 %) 0.1 Neut # (Auto) (2.0 - 7.6 x10 3/uL) 6.99 Lymph # (Auto) (1.0 - 3.8 x10 3/uL) 1.77 [place] # (Auto) (0.1 - 0.8 x10 3/uL) [...] pH (5.0 - 7.0) 5.0 Ur Specific [place] (1.005 - 1.030) 1.013 Urine Protein (NEGATIVE) [...] (Auto) (14.0 - 32.0 %) 11.3 L [place] % (Auto) (4.8 - 9.0 %) 3.2 L Eos % (Auto) (0.3 - 3.7 %) 0.0 L Baso % (Auto) (0.0 - 2.0 %) 0.1 Neut # (Auto) (2.0 - 7.6 x10 3/uL) 7.35 Lymph # (Auto) (1.0 - 3.8 x10 3/uL) 0.98 L [place] # (Auto) (0.1 - 0.8 x10 3/uL) [...] (Auto) (14.0 - 32.0 %) 13.9 L [place] % (Auto) (4.8 - 9.0 %) 5.1 Eos % (Auto) (0.3 - 3.7 %) 0.0 L Baso % (Auto) (0.0 - 2.0 %) 0.1 Neut # (Auto) (2.0 - 7.6 x10 3/uL) 7.58 Lymph # (Auto) (1.0 - 3.8 x10 3/uL) 1.31 [place] # (Auto) (0.1 - 0.8 x10 3/uL) [...] H Laboratory Tests: 09/13 09/13 09/13 09/12 3647 [id number] 2016 Chemistry Sodium (134 - 147 mEq/L) [...] (Auto) (14.0 - 32.0 %) 10.4 L [place] % (Auto) (4.8 - 9.0 %) 3.5 L Eos % (Auto) (0.3 - 3.7 %) 0.0 L Baso % (Auto) (0.0 - 2.0 %) 0.1 Neut # (Auto) (2.0 - 7.6 x10 3/uL) 8.34 H Lymph # (Auto) (1.0 - 3.8 x10 3/uL) 1.02 [place] # (Auto) (0.1 - 0.8 x10 3/uL) [...] % (Auto) (14.0 - 32.0 %) 15.0 [place] % (Auto) (4.8 - 9.0 %) 7.9 Eos % (Auto) (0.3 - 3.7 %) 3.8 H Baso % (Auto) (0.0 - 2.0 %) 0.3 Neut # (Auto) (2.0 - 7.6 x10 3/uL) 6.34 Lymph # (Auto) (1.0 - 3.8 x10 3/uL) 1.31 [place] # (Auto) (0.1 - 0.8 x10 3/uL) [...] % (Auto) (14.0 - 32.0 %) 16.1 [place] % (Auto) (4.8 - 9.0 %) 9.1 H Eos % (Auto) (0.3 - 3.7 %) 5.6 H Baso % (Auto) (0.0 - 2.0 %) 0.5 Neut # (Auto) (2.0 - 7.6 x10 3/uL) 5.35 Lymph # (Auto) (1.0 - 3.8 x10 3/uL) 1.27 [place] # (Auto) (0.1 - 0.8 x10 3/uL) [...] % (Auto) (14.0 - 32.0 %) 15.5 [place] % (Auto) (4.8 - 9.0 %) 8.5 Eos % (Auto) (0.3 - 3.7 %) 5.5 H Baso % (Auto) (0.0 - 2.0 %) 0.4 Neut # (Auto) (2.0 - 7.6 x10 3/uL) 5.94 Lymph # (Auto) (1.0 - 3.8 x10 3/uL) 1.33 [place] # (Auto) (0.1 - 0.8 x10 3/uL) [...] % (Auto) (14.0 - 32.0 %) 16.1 [place] % (Auto) (4.8 - 9.0 %) 9.2 H Eos % (Auto) (0.3 - 3.7 %) 4.7 H Baso % (Auto) (0.0 - 2.0 %) 0.4 Neut # (Auto) (2.0 - 7.6 x10 3/uL) 6.38 Lymph # (Auto) (1.0 - 3.8 x10 3/uL) 1.49 [place] # (Auto) (0.1 - 0.8 x10 3/uL) [...] (Auto) (14.0 - 32.0 %) 13.7 L [place] % (Auto) (4.8 - 9.0 %) 7.2 Eos % (Auto) (0.3 - 3.7 %) 4.8 H Baso % (Auto) (0.0 - 2.0 %) 0.3 Neut # (Auto) (2.0 - 7.6 x10 3/uL) 6.64 Lymph # (Auto) (1.0 - 3.8 x10 3/uL) 1.24 [place] # (Auto) (0.1 - 0.8 x10 3/uL) [...] abdomen. Impression By: [id number] - Roger Parra M.D. ULTRASOUND - [facility] 09/05 1146 Report Impression - Status: SIGNED Entered: 09/05/2022 1333 IMPRESSION: 1. No evidence of deep vein thrombosis. 2. Complex heterogeneous hypoechoic fluid collection in the left calf region measuring 8.4 x 2.8 x 2.5 cm; there is no internal vascularity or peripheral hyperemia. May represent a hematoma. Impression By: [id number] - Mert Ga M.D. RADIOLOGY - XR CHEST 1 V 09/05 1432 Report Impression - Status: SIGNED Entered: 09/05/2022 1515 IMPRESSION: Minimal bibasilar pulmonary opacities Impression By: TipTDO - Bishop Mares M.D. Laboratory [...] COLB STOOL 1.Diabetes mellitus type 2 uncontrolled complications. 2. 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 4. Sepsis 5. Prostate abscess. 6. Anemia Blood sugar 244-251 mg/dL.H/H 8.11/17. Adjust insulin dose. PT and OT. at 1740 RPT #:[id number] END OF REPORT [facility] 2022-09-22 14:43:00 [facility] ([facility]) Infectious Dis. Progress Note REPORT#:[id number] REPORT STATUS: Signed DATE:09/22/22 TIME: 1443 PATIENT: KARMA ROWLAND UNIT #: [id number] ROOM/BED: [place] [address] : 61 AGE: 56 SEX: M ATTEND: Mj Vences MD ADM AUTHOR: Anthony Curtis MD * ALL edits or amendments must be made on the electronic/computer document * Subjective Chief complaint: Follow-up on MRSA bacteremia, prostatic abscess. HPI: Patient reports feeling better subjectively. Denies acute or new complaints. No major overnight events. Objective General VS/I O: Vital Signs Date Temp Pulse Resp B/P B/P Mean Pulse Ox FiO2 09/21-09/22 97.3-99.0 81-90 14-20 122-179/64-88 83.1-118.4 96-98 Last Documented: Result Date Time Pulse Ox 96 09/22 1844 B/P 122/64 09/22 1844 B/P Mean 83.1 09/22 1844 O2 Delivery Room air 09/23 1843 Temp 97.9 09/22 184 Pulse 90 09/22 1844 Resp 16 09/22 184 O2 Flow Rate 2 09/08 1322 Vital [...] 87 171/86 114.5 98 Room air 09/21 204 98.1 90 20 179/88 118.4 98 Room [...] acute distress Cardiovascular: normal heart sounds, regular rate rhythm Respiratory: clear to auscultation, aerating well Abdomen: non-tender, soft, no distention Extremities: edema (in left leg and thigh improved), moves all, right BKA Left foot wound +dressing in place Neuro/QUANTITATIVE ANALYST: alert, oriented X 3 Considered stroke alert: [...] intramuscular compartments of the foot, compatible with gas -forming infection. Patient's blood cultures have come back positive for MRSA in 2 out of 2 sets. Patient has had persistent positive cultures for MRSA. He underwent a debridement of his foot on 08/19/2022 and cultures grew MRSA. Patient was started on vancomycin and clindamycin on 08/18/2022. His MRI showed a prostate abscess. 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 Pt underwent a transrectal aspiration and unroofing of prostate abscess 08/26/2022 and cultures grew Citrobacter, Enterococcus, MRSA. He also had a BKA of right leg 2022. JIMENA done 09/02/2022, which was negative for vegetations. Patient was transferred to Rehab on 09/02/2022. *MRSA bacteremia, refractory, now cleared *Prostatic abscess, s/p unroofing 08/26/2022 *ERIKA *Hyponatremia *Diabetic neuropathy *Diabetes mellitus type 2 *Hypertension *Anemia -Afebrile; although with an isolated low-grade temperature spike of 37.2 C. -Leukocytosis of 12.0 on today's CBC noted; overall, downtrending. -No recent cultures. Last blood cultures from 08/28/22 negative x2. Plan: -On daptomycin and meropenem. -Finishing treatment 09/24/2022. -Would finish treatment as planned and then monitor off antimicrobials. -Continue supportive care. at 2010 RPT #:[id number] END OF REPORT [facility] 2022-09-22 13:59:00 [facility] ([facility]) Pain Management Progress Note REPORT#:[id number] REPORT STATUS: Signed DATE:09/22/22 TIME: 1358 PATIENT: KARMA ROWLAND UNIT #: [id number] ROOM/BED: [place] [address] : 61 AGE: 56 SEX: M ATTEND: Mj Vences MD ADM AUTHOR: Ben Klein * ALL edits or amendments must be made on the electronic/computer document * Ben Klein 09/22/22 1359: Subjective [...] fever/chills, chest pain, orthopnea, nausea/vomiting, pruritus, or hallucinations. 14 point ROS undertaken unremarkable except as noted Objective General VS/I O: Vital Signs Date Temp Pulse Resp B/P B/P Mean Pulse Ox FiO2 09/21-09/22 36.3-36.7 80-90 14-20 155-179/76-88 102.5-118.4 97-98 Last Documented: Result Date Time Pulse Ox 97 09/22 0708 B/P 158/80 09/22 0708 B/P Mean 106.1 09/22 0708 O2 Delivery Room air 09/22 07 Temp 36.6 09/22 0708 Pulse 89 09/22 [...] Exam General appearance: alert, awake, oriented, no acute distress Head/eyes: atraumatic, EOMI, normocephalic, normal conjunctiva/sclera, PERRLA ENT: normal pharynx, moist mucosal membranes Neck: full range of motion, no lymphadenopathy, supple/no meningismus Cardiovascular: regular rate rhythm Respiratory: aerating well Abdomen: soft, non-tender, no distention, active bowel sounds in all quarants. Abdomen quadrants LLQ normal bowel sounds, LUQ normal bowel sounds, RLQ normal bowel sounds, RUQ normal bowel sounds Extremities: moves all, no edema, pedal pulses, right BKA Neuro/QUANTITATIVE ANALYST: 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, no sensory deficits, CNII-XII grossly intact Considered stroke alert: no Skin: dry, intact, no rash Lymphatics: axilla normal Psychiatry: normal affect, normal judgment/insight Results Findings/data: Laboratory Tests: 09/22 09/22 09/22 [...] (Auto) (14.0 - 32.0 %) 11.3 L [place] % (Auto) (4.8 - 9.0 %) 5.7 Eos % (Auto) (0.3 - 3.7 %) 0.2 L Baso % (Auto) (0.0 - 2.0 %) 0.0 Neut # (Auto) (2.0 - 7.6 x10 3/uL) 9.79 H Lymph # (Auto) (1.0 - 3.8 x10 3/uL) 1.35 [place] # (Auto) (0.1 - 0.8 x10 3/uL) [...] foot foot and ankle gangrene, diabetes, hypertension, hyperlipidemia Past Surgical History: TURP, right BKA Family History: Noncontributory Social History: Denies tobacco, alcohol, or drug use Allergies: NKDA Recent prostate abscess -Status post TURP with unroofing of abscess -IV antibiotics with vancomycin until 09-24-2022 Acute postoperative pain, right foot and ankle gangrene, requiring BKA -Patient is at risk for further amputations or loss of limb due to comorbid conditions -Status post right BKA 08/28/2022 -DC [place] 10/325 1 tablet p.o. every 4 hours as needed pain scale 4 10 -DC Dilaudid 0.5 mg IV daily as needed pain scale 7 10, second line therapy () -Tylenol 650 mg p.o. every 6 hours as needed pain scale 1 3 -Percocet 10/325mg every 4 hours as needed, pain scale 4-10 (09/10) -Lidoderm patch to left ankle daily -IV antibiotics with vancomycin until 09-24-2022 -Local wound care -manageable Diabetic peripheral neuropathy -amitriptyline 25mg PO QHS -Gabapentin 100mg every 8 hours (09/10) -manageable Hypertension -We will monitor hypertension and tachycardia due to pain, and hypotension as well as bradycardia secondary over sedation with narcotics -Hydralazine as needed Elevated LFTs -08/20/22-AST 51, ALT 22 -09/03/2022-AST 15, ALT 7 -Patient will require close monitoring since he is using narcotics with Tylenol Impaired functional mobility, balance, gait, and endurance -PT/OT Antalgic/Impaired gait -PT/OT -Improve strength, endurance, self-care, gait, balance, ADLs -Fall precautions per unit protocol -Pain medications as outlined above Constipation -We will monitor while utilizing opioid narcotic medications. -Adequate fluid intake also discussed. -Colace 100 mg p.o. twice daily as needed -Dulcolax 10 mg rectally daily as needed -Senna lax 8.6mg daily -Miralax 17gm daily -manageable Disposition: percocet 10/325mg q6h prn pain , gabapentin 100mg q8h sent to [facility]/ pharmacy #[id number] [place] [address] ([address]) Phone: Patient has failed conservative medical therapy. Patient will require monitoring while utilize narcotic medications [...] whom agrees. Thank you for the consultation. [place] ORCHESTRA LEADER: -database searched, no information found Kingsley Ng 10/09/22 0636: Attestations Physician Attestation Agree w/findings plan: The patient was seen and examined by Ben Klein. I personally developed the care plan, which was continued by the mid-level provider. I was immediately available. at 1400 at 0642 RPT #:[id number] END OF REPORT [facility] 2022-09-22 12:46:00 [facility]) Gastroenterology Progress Note REPORT#:[id number] REPORT STATUS: Signed DATE:09/22/22 TIME: 1246 PATIENT: KARMA ROWLAND UNIT #: [id number] ROOM/BED: [place] [address] : 61 AGE: 56 SEX: M ATTEND: Mj Vences MD ADM AUTHOR: Kassie Avitia MD * ALL edits or amendments must be made on the electronic/computer document * Subjective HPI: Patient is a 56-year-old male with history of diabetes mellitus type 2 and hypertension who was initially admitted for altered mental status and right- sided foot infection. [...] gym. Tolerating diet. Normal BMs. Stable H/H 09/14-Sitting up in wheelchair, family at bedside. Denies [...] looking forward to be discharged Objective Physical Exam HEENT: atraumatic, normocephalic Neck: [...] kidney disease and mild oozing from his stump. Can consider video capsule endoscopy as outpt if evidence of dropping H/H H/H remains stable Consider reducing frequency of H/H check Will follow along Consultants: cardiology, endocrinology, hospitalist, infectious disease, podiatry at 1247 RPT #:[id number] END OF REPORT [facility] 2022-09-22 10:45:00 [facility]) Cardiology Progress Note REPORT#:[id number] REPORT STATUS: Signed DATE:09/22/22 TIME: 1044 PATIENT: KARMA ROWLAND UNIT #: [id number] ROOM/BED: [place] [address] : 61 AGE: 56 SEX: M ATTEND: Mj Vences MD ADM AUTHOR: Rohit Benitez LOG ROPER * ALL edits or amendments must be made on the electronic/computer document * Rohit Benitez 09/22/22 1045: Subjective Chief complaint: weakness Free Text Subj Notes Free Text Subj Notes: Patient seen and evaluated in the gym, working with therapy. No new cardiac complaints. Objective General VS/I O: 24 hour I O ending at 0700: 09/22 0700 09/21 1900 Intake Total Output Total 2099 Balance -2099 Number 1 Bowel Movements Number 0 Incontinent Voids Number Voids 0 Output, Urine 2100 Vital Signs: Date Time Temp Pulse Resp B/P B/P Pulse O2 O2 Flow FiO2 Mean Ox Delivery Rate 09/22 07 97.9 89 18 158/80 106.1 97 Room [...] regular rate and rhythm, no ectopy, no gallop Respiratory: clear to auscultation, no distress Abdomen: soft, non-tender Genitourinary: urinary catheter Lower extremity: LE assessment: edema, normal temperature Neuro/QUANTITATIVE ANALYST: alert, oriented X 3 Considered stroke alert: no Wound/incision: Location: right bka Psychiatry: normal affect, normal judgment/insight, normal mood Results Findings/Data: Laboratory Tests 09/22 [...] (Auto) (14.0 - 32.0 %) 11.3 L [place] % (Auto) (4.8 - 9.0 %) 5.7 Eos % (Auto) (0.3 - 3.7 %) 0.2 L Baso % (Auto) (0.0 - 2.0 %) 0.0 Neut # (Auto) (2.0 - 7.6 x10 3/uL) 9.79 H Lymph # (Auto) (1.0 - 3.8 x10 3/uL) 1.35 [place] # (Auto) (0.1 - 0.8 x10 3/uL) [...] H Diagnosis, Assessment Plan Consultants: cardiology, endocrinology, hospitalist, infectious disease, podiatry Free [...] rehab for physical therapy. Known cardiac history of hypertension and hyperlipidemia. Vital signs stable. Echocardiogram with [...] BMP in the morning. Supportive care. Plan of care discussed with [...] Continue hold diuretic for now. Supportive care. Plan of care discussed with patient, RN and Dr. Parham. 09/15: Repeat echocardiogram showed LVEF of 55 to 60%, no regional wall motion abnormalities, left ventricular diastolic function parameters are indeterminate, mildly dilated [...] Dr. Parham. 09/18: Blood pressure remains elevated due [...] volume status. No new cardiac complaint. Continue steroid taper per nephrology. Progressing in therapy. Discharge planning. [...] remains from cardiac standpoint. Blood pressure elevated, started on amlodipine 10 mg daily. Continue steroid therapy and diuretic per nephrology. Creatinine 1.8 today. Tolerating physical therapy. Discharge planning. Supportive care. Plan of care discussed with patient, RN and Dr. Parham. Napoleon Parham 09/27/22 1304: Diagnosis, Assessment Plan Additional comments: Agree with above assessment and plan as documented by nurse practitioner, continue current management, will follow. at 1848 at 1655 RPT #:[id number] END OF REPORT [facility] 2022-09-22 09:57:00 [facility] ([facility]) Rehab Progress Note REPORT#:[id number] REPORT STATUS: Signed DATE:09/22/22 TIME: 0957 PATIENT: KARMA ROWLAND UNIT #: [id number] ROOM/BED: [place] [address] : 61 AGE: 56 SEX: M ATTEND: Mj Vences MD ADM AUTHOR: Mj Vences MD * ALL edits or amendments must be made on the electronic/computer document * Subjective Chief complaint: Rehab follow-up Fall last night without injury States edema improving Eating 75-100% at bedside + BM Denies DICKENS/N/V/D/CP 14 systems reviewed and neg. except that [...] is wearing a nestor-tech orthotic for right knee/BKA protection. Prior to [...] Exam General appearance: alert, awake, no acute distress Psych: alert, normal affect, oriented x 3 HEENT: anicteric, sclera clear Neck: supple, no JVD Cardiovascular: S1/S2, no murmur Respiratory: aerating well, clear bilaterally Abdomen: bowel sounds present, non-distended, soft, non-tender Skin: no rash, R BKA HEALING. 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 Leroy Significant impairment in self-care, ADLs and functional mobility Impaired mobility and gait Acute postoperative pain right BKA Diabetic polyneuropathy DKA, DM 2, poorly controlled, A1c greater than 14 PAD MRSA bacteremia/sepsis-treated on acute ERIKA Severe hyponatremia-resolved HTN Acute on chronic anemia requiring multiple transfusions, possible GI bleed Left calf hematoma Edema and clinical arthritis left ankle Early decubitus to left heel/DTI dorsal left midfoot Prostatic abscess 08/26: S/p transrectal ultrasound aspiration of abscess and transurethral resection of prostate and unroofing of abscess 09/12: Echo: EF 55-59%, grade 1 diastolic dysfunction 09/02: JIMENA negative for vegetation MRSA OF NARES 09/08:s/p EGD and colonoscopy. EGD showed mild gastritis. Colonoscopy showed rectal polyp that was resected by snare (tubular adenoma)-repeat colonoscopy in 5 years Plan: -PLOF: Independent with transfers and gait -Amputee rehab program -Continue PT and OT -15/12 rehabilitation nursing care. -Case management for safe discharge planning. -Decubitus prevention -Early decubitus to left heel/DTI dorsal left midfoot-zinc [...] 16.7 dietary consultation, protein supplements to promote healing -Diabetes-A1c 14, tight glycemia control- endocrine on board, insulin adjustments -Endocrinology, ID, podiatry, cardiology, IM consulted -Pain management adjusting pain medications -Anemia, patient required multiple units of PRBCs on acute, FOBT positive -IV Protonix-consult GI-serial H H-no evidence of gross bleeding-discussed with Dr. Trinidad -Constipation-abdominal kaezcglr-ANH-qqbzls-CW Senokot and MiraLAX, DSP -MRSA OF NARES on Bactroban protocol -LLE edema-venous Doppler with complex heterogeneous hypoechoic fluid collection in the left calf region measuring 8.4, 2.8, 2.5 cm suggestive of hematoma. On low-dose Lasix. Joan wrap LLE -LE edema could be related to hypoalbuminemia leading to third spacing-edema improving -Generalized edema-some shortness of breath and abdominal distention-cardiology gave a dose of IV Lasix-monitor urine output, daily weights-SOB resolved -09/05-venous Doppler of LLE-negative for DVT-Joan wrap dressing and elevation -Anemia-hemoglobin 8.3, 7.7, 8.2, 7.6, 8, 7.7 transfused 2 units of PRBC on 09/05 -09/08: s/p EGD and colonoscopy. EGD showed mild gastritis. Colonoscopy showed rectal polyp that was resected by snare. Anemia likely secondary to chronic kidney disease. Consult renal. -Pathology of polyp came back as tubular adenoma. recommend repeating colonoscopy in 5 years as per GI -Consider video capsule endoscopy as outpt if evidence of dropping H/H -Renal ultrasound negative -09/22/2022 laboratory this morning showed sodium 138, potassium 5.1, CO2 20, BUN 71, creatinine 1.8 down from 1.9 continues to improve, continue prednisone, hemoglobin 7.7, platelet 305, blood count 12, blood pressure still elevated will add Norvasc 10 mg p.o. daily-as per renal -MRSA bacteremia and prostatic abscess-WBC 12-monitor on Merrem and Daptomycin til 09/24 as per ID -Lasix as per nephrology -Completed Solu-Medrol on prednisone -09/12: Echo-EF 55-60%, indeterminate diastolic function parameters as per cardio -BP elevated. continue to adjust meds -BS better but likely to increase with re-initiation of steroids x3 days started by Nephrology for AIN -Endo adjusting insulin -Car transfer training 09/23 -Labs reviewed-hemoglobin stable at 7.7-GI recommends decrease checking H H and video capsule endoscopy as outpatient -Nutritional indices improved -Right AQZ-mxjxtvm-elwluttj resolved, dressings changed today-no bleeding after heparin discontinued, SCD to left leg -Advance therapies as tolerated-discussed treatment plan with [...] 10-15 WITH LIMITED HEEL LIFT OFF AT THIS TIME. PM R Please see team note. [...] Complete Consultants: cardiology, endocrinology, hospitalist, infectious disease, podiatry Rehab attestation: Face to face exam completed. Treatment plan discussed with patient. Meets continued stay criteria. Agree with interdisciplinary treatment plan. at 1527 RPT #:[id number] END OF REPORT [facility] 2022-09-22 07:30:00 [facility] ([facility]) Nephrology Progress Note REPORT#:[id number] REPORT STATUS: Signed DATE:09/22/22 TIME: 729 PATIENT: KARMA ROWLAND UNIT #: [id number] ROOM/BED: [place] [address] : 61 AGE: 56 SEX: M ATTEND: Mj Vences MD ADM AUTHOR: Barrera Ramírez MD * ALL edits or amendments must be made on the electronic/computer document * Subjective Chief complaint: Infected foot HPI: Patient seen and evaluated on 09/09/2022, note started, [...] change from initial, feels okay. Review of Systems Constitutional: Reports: fatigue. Denies: chills, fever. Skin: Denies: abrasion, bruising. Allergy/Immun: Denies: hives, itching. Eyes: Denies: redness, discharge. ENT: Denies: ear drainage, ear ringing. Respiratory: Denies: hemoptysis, SOB. Cardiovascular: Denies: chest pain. Objective General VS/I O: Vital Signs: Date Time Temp Pulse Resp B/P B/P Pulse O2 O2 Flow FiO2 Mean Ox Delivery Rate 09/23 707 36.6 89 18 158/80 106.1 97 Room air 09/22 0036 36.3 81 14 155/76 102.5 97 Room air 09/21 2108 86 169/86 114.0 98 Room air 09/21 210 87 171/86 114.5 98 Room air 09/21 2044 36.7 90 20 179/88 118.4 98 Room [...] no edema Musculoskeletal: no CVA tenderness, no tenderness Neuro/QUANTITATIVE ANALYST: alert, 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 Considered stroke alert: no [...] 09/20 09/20 09/20 09/19 1140 0922 0505 4768 1921 Chemistry Sodium (134 - 147 mEq/L) [...] %) 11.3 L 11.3 L 13.0 L [place] % (Auto) (4.8 - 9.0 %) 5.7 5.3 6.2 Eos % (Auto) (0.3 - 3.7 %) 0.2 L 0.2 L 0.2 L Baso % (Auto) (0.0 - 2.0 %) 0.0 0.1 0.1 Neut # (Auto) (2.0 - 7.6 x10 3/uL) 9.79 H 10.70 H 9.84 H Lymph # (Auto) (1.0 - 3.8 x10 3/uL) 1.35 1.47 1.60 [place] # (Auto) (0.1 - 0.8 x10 3/uL) [...] (Auto) (14.0 - 32.0 %) 11.3 L [place] % (Auto) (4.8 - 9.0 %) 5.7 Eos % (Auto) (0.3 - 3.7 %) 0.2 L Baso % (Auto) (0.0 - 2.0 %) 0.0 Neut # (Auto) (2.0 - 7.6 x10 3/uL) 9.79 H Lymph # (Auto) (1.0 - 3.8 x10 3/uL) 1.35 [place] # (Auto) (0.1 - 0.8 x10 3/uL) [...] 3/uL) 0.00 Diagnosis, Assessment Plan Free Text A P: Patient seen and evaluated, discussed with care team, images and laboratories reviewed. Diabetes mellitus: Insulin: Monitor blood sugar closely and adjust medications as needed, followed by endocrinology. Hypertension: Blood pressure is not well controlled, increase Coreg to 12.5 mg p.o. twice daily: Monitor blood pressure closely and adjust medications as needed Right foot gangrene/infection status post right BKA Anemia: Status post EGD and colonoscopy which were negative for active GI bleeding, patient had work-up in July 2022 which showed very high B12, normal folate, very low iron saturation but very high ferritin which was likely related to his infection, likely patient is very iron deficient, will repeat lab and give IV iron if needed. We will check serum immunofixation. Acute kidney injury: We will check renal bladder ultrasound, check postvoid residual, check urine protein creatinine ratio Hypomagnesemia: We will supplement 09/10/2022 laboratory this morning showed sodium 135, potassium 4.2, CO2 21, BUN 25, creatinine 1.9 continues to worsen, etiology unclear, however his development some eosinophilia not sure if he is developing AIN, suggest changing cefepime to a different class of antibiotic if possible, will check renal bladder ultrasound 09/11/2022 laboratory this morning showed sodium 134, potassium 4.3, CO2 22, BUN 26, creatinine 2 up from 1.9, hopefully creatinine is plateauing, renal ultrasound negative. 09/12/2022 laboratory this morning showed sodium 134, potassium 4.2, CO2 20, BUN 31, creatinine 2.4 continues to worsen, discussed with ID, AIN is probably the etiology of the unexplained deterioration of his renal function, antibiotics to be adjusted by infectious disease, will give Solu-Medrol 125 mg IV daily for 3 days. Significant lower extremity edema, will start Lasix 20 mg p.o. twice daily. 09.13.23: pt was seen and examined. Very thirsty. serum creatinine is worsening today. Vancomycin was stopped yesterday and Solu medrol was started. Mild hypovolemic hyponatremia. Will DC lasix and monitor his renal functions. BP is well controlled. 09.14.23: pt was seen and examined. Feels better but still thirsty. I stopped his lasix. will start NS at 75 cc for [...] plan for kidney biopsy 09/16/2022 laboratory this morning showed sodium 135, potassium 4.5, CO2 20, BUN 60, creatinine 2.7, better down from 2.9, hemoglobin 7.6, platelet 360, blood count 9.5, will give prednisone 80 mg p.o. today, blood pressure is elevated, will add hydralazine 25 mg p.o. 3 times daily, scrotal and LE swelling will give Lasix 40 mg IV x 3 09/17/2022 blood pressure still elevated, will increase hydralazine to 50 mg p.o. 3 times daily, will give 80 mg of prednisone today, urine output with Lasix 4125 , laboratory this morning showed sodium 136, potassium 4.5, CO2 21, BUN 66, creatinine 2.4 down from 2.7, will give 3 more doses of IV Lasix 40 mg every 8 hours 09/18/2022 laboratory this morning showed sodium 138, potassium 4.1, CO2 21, BUN 66, creatinine 2.2 continues to improve, urine output 2.7 L, hemoglobin 7.6, platelet 341, blood count 10.6, will give Lasix 40 mg IV every 8 for 3 doses, start prednisone 60 mg p.o. daily for 3 days, increase hydralazine to 75 mg p.o. 3 times daily. 09/19/2022 blood pressure better, sodium 139, potassium 3.8, CO2 22, BUN 72 up from 66, creatinine 2.3 up from 2.2, will hold off diuretics, urine output reported 2 L, magnesium 1.69 we will give magnesium sulfate 2 g IV x1, continue prednisone. 09/20/2022 laboratory this morning showed sodium 136, potassium 4.2, CO2 21, BUN 76, creatinine 2.2 down from 2.3, hemoglobin 7.6, platelet 302, blood count 12.3 , continue off diuretics 09/21/2022 blood pressure still elevated will increase hydralazine to 100 mg p.o. 3 times daily, hemoglobin 7.6, platelet 296, blood count 13, urine output reported 3025, will start prednisone 50 mg p.o. daily for 3 days, sodium 137, potassium 4.6, CO2 22, BUN 75, creatinine 1.9 down from 2.2 continues to improve. 09/22/2022 laboratory this morning showed sodium 138, potassium 5.1, CO2 20, BUN 71, creatinine 1.8 down from 1.9 continues to improve, continue prednisone, hemoglobin 7.7, platelet 305, blood count 12, blood pressure still elevated will add Norvasc 10 mg p.o. daily. Consultants: cardiology, endocrinology, hospitalist, infectious disease, podiatry at 0947 RPT #:[id number] END OF REPORT [facility] 2022-09-22 07:17:00 [facility] ([facility]) Hospitalist Progress Note REPORT#:[id number] REPORT STATUS: Signed DATE:09/22/22 TIME: 716 PATIENT: KARMA ROWLAND UNIT #: [id number] ROOM/BED: [place] [address] : 61 AGE: 56 SEX: M ATTEND: Mj Vences MD ADM AUTHOR: Wilbert Ramires MD * ALL edits or amendments must be made on the electronic/computer document * Subjective Chief complaint: Edema LLE [...] no JVD Cardiovascular: normal heart sounds, regular rate rhythm Respiratory: aerating well, clear to auscultation Abdomen: non-tender, normal bowel sounds Genitourinary: no bladder distention Extremities: edema (1+ pitting edema to thigh), moves all, normal capillary refill Musculoskeletal: normal inspection Neuro/QUANTITATIVE ANALYST: alert, oriented X 3, 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 Considered stroke alert: no Skin: dry, intact Psychiatry: normal affect, normal judgment/insight Results Findings/Data: Laboratory Tests 09/22 09/22 09/21 [...] (Auto) (14.0 - 32.0 %) 11.3 L [place] % (Auto) (4.8 - 9.0 %) 5.7 Eos % (Auto) (0.3 - 3.7 %) 0.2 L Baso % (Auto) (0.0 - 2.0 %) 0.0 Neut # (Auto) (2.0 - 7.6 x10 3/uL) 9.79 H Lymph # (Auto) (1.0 - 3.8 x10 3/uL) 1.35 [place] # (Auto) (0.1 - 0.8 x10 3/uL) [...] 0.1 x10 3/uL) 0.00 Diagnosis, Assessment Plan Consultants: cardiology, endocrinology, hospitalist, infectious disease, podiatry Free Text DxA P Notes Free text DxA P notes: Gangrene of right foot s/p Below- knee amputation Prostate abscess MRSA bacteremia Hx of Diabetes, Diabetic neuropathy HTN ERIKA PLANS: Continue with PT/OT per primary Wound care and Abx as per ID Hepain PPX IV iron BS better but likely to increase with re-initiation of steroids x3 days started by Nephrology for AIN - Endo adjusting insulin pain control creatinine improving so far Edema about the same, Lasix as per renal Hgb stabilized. continue to monitor BP elevated. continue to adjust meds cardio following at 1102 RPT #:[id number] END OF REPORT [facility] 2022-09-21 20:34:00 [facility] Endocrinology Progress Note REPORT#:[id number] REPORT STATUS: Signed DATE:09/21/22 TIME: 2033 PATIENT: KARMA ROWLAND UNIT #: [id number] ROOM/BED: [place] [address] : 61 AGE: 56 SEX: M ATTEND: Mj Vences MD ADM AUTHOR: Braxton Chapin MD * ALL edits or amendments must be made on the electronic/computer document * Subjective Patient reports: no complaints [...] (Auto) (14.0 - 32.0 %) 11.3 L [place] % (Auto) (4.8 - 9.0 %) 5.3 Eos % (Auto) (0.3 - 3.7 %) 0.2 L Baso % (Auto) (0.0 - 2.0 %) 0.1 Neut # (Auto) (2.0 - 7.6 x10 3/uL) 10.70 H Lymph # (Auto) (1.0 - 3.8 x10 3/uL) 1.47 [place] # (Auto) (0.1 - 0.8 x10 3/uL) [...] 09/20 09/20 09/20 09/19 1140 0922 0505 7579 1920 Chemistry Sodium (134 - 147 mEq/L) 136 [...] (Auto) (14.0 - 32.0 %) 13.0 L [place] % (Auto) (4.8 - 9.0 %) 6.2 Eos % (Auto) (0.3 - 3.7 %) 0.2 L Baso % (Auto) (0.0 - 2.0 %) 0.1 Neut # (Auto) (2.0 - 7.6 x10 3/uL) 9.84 H Lymph # (Auto) (1.0 - 3.8 x10 3/uL) 1.60 [place] # (Auto) (0.1 - 0.8 x10 3/uL) [...] % (Auto) (14.0 - 32.0 %) 16.5 [place] % (Auto) (4.8 - 9.0 %) 8.4 Eos % (Auto) (0.3 - 3.7 %) 2.4 Baso % (Auto) (0.0 - 2.0 %) 0.2 Neut # (Auto) (2.0 - 7.6 x10 3/uL) 9.50 H Lymph # (Auto) (1.0 - 3.8 x10 3/uL) 2.19 [place] # (Auto) (0.1 - 0.8 x10 3/uL) [...] % (Auto) (14.0 - 32.0 %) 17.4 [place] % (Auto) (4.8 - 9.0 %) 6.9 Eos % (Auto) (0.3 - 3.7 %) 0.1 L Baso % (Auto) (0.0 - 2.0 %) 0.1 Neut # (Auto) (2.0 - 7.6 x10 3/uL) 7.91 H Lymph # (Auto) (1.0 - 3.8 x10 3/uL) 1.85 [place] # (Auto) (0.1 - 0.8 x10 3/uL) [...] H 273 H 09/17 09/16 09/16 0450 6011 6771 Chemistry Sodium (134 - 147 mEq/L) 136 [...] (Auto) (14.0 - 32.0 %) 10.2 L [place] % (Auto) (4.8 - 9.0 %) 2.9 L Eos % (Auto) (0.3 - 3.7 %) 0.0 L Baso % (Auto) (0.0 - 2.0 %) 0.1 Neut # (Auto) (2.0 - 7.6 x10 3/uL) 7.58 Lymph # (Auto) (1.0 - 3.8 x10 3/uL) 0.91 L [place] # (Auto) (0.1 - 0.8 x10 3/uL) [...] % (Auto) (14.0 - 32.0 %) 18.6 [place] % (Auto) (4.8 - 9.0 %) 6.7 Eos % (Auto) (0.3 - 3.7 %) 0.2 L Baso % (Auto) (0.0 - 2.0 %) 0.1 Neut # (Auto) (2.0 - 7.6 x10 3/uL) 6.99 Lymph # (Auto) (1.0 - 3.8 x10 3/uL) 1.77 [place] # (Auto) (0.1 - 0.8 x10 3/uL) [...] pH (5.0 - 7.0) 5.0 Ur Specific [place] (1.005 - 1.030) 1.013 Urine Protein (NEGATIVE) [...] (Auto) (14.0 - 32.0 %) 11.3 L [place] % (Auto) (4.8 - 9.0 %) 3.2 L Eos % (Auto) (0.3 - 3.7 %) 0.0 L Baso % (Auto) (0.0 - 2.0 %) 0.1 Neut # (Auto) (2.0 - 7.6 x10 3/uL) 7.35 Lymph # (Auto) (1.0 - 3.8 x10 3/uL) 0.98 L [place] # (Auto) (0.1 - 0.8 x10 3/uL) [...] 09/14 09/14 09/14 09/14 09/13 1130 0736 0543 7556 1937 Chemistry Sodium (134 - 147 mEq/L) [...] (Auto) (14.0 - 32.0 %) 13.9 L [place] % (Auto) (4.8 - 9.0 %) 5.1 Eos % (Auto) (0.3 - 3.7 %) 0.0 L Baso % (Auto) (0.0 - 2.0 %) 0.1 Neut # (Auto) (2.0 - 7.6 x10 3/uL) 7.58 Lymph # (Auto) (1.0 - 3.8 x10 3/uL) 1.31 [place] # (Auto) (0.1 - 0.8 x10 3/uL) [...] Tests: 09/13 09/13 09/13 09/12 1105 0543 0073 2016 Chemistry Sodium (134 - 147 mEq/L) [...] (Auto) (14.0 - 32.0 %) 10.4 L [place] % (Auto) (4.8 - 9.0 %) 3.5 L Eos % (Auto) (0.3 - 3.7 %) 0.0 L Baso % (Auto) (0.0 - 2.0 %) 0.1 Neut # (Auto) (2.0 - 7.6 x10 3/uL) 8.34 H Lymph # (Auto) (1.0 - 3.8 x10 3/uL) 1.02 [place] # (Auto) (0.1 - 0.8 x10 3/uL) [...] % (Auto) (14.0 - 32.0 %) 15.0 [place] % (Auto) (4.8 - 9.0 %) 7.9 Eos % (Auto) (0.3 - 3.7 %) 3.8 H Baso % (Auto) (0.0 - 2.0 %) 0.3 Neut # (Auto) (2.0 - 7.6 x10 3/uL) 6.34 Lymph # (Auto) (1.0 - 3.8 x10 3/uL) 1.31 [place] # (Auto) (0.1 - 0.8 x10 3/uL) [...] % (Auto) (14.0 - 32.0 %) 16.1 [place] % (Auto) (4.8 - 9.0 %) 9.1 H Eos % (Auto) (0.3 - 3.7 %) 5.6 H Baso % (Auto) (0.0 - 2.0 %) 0.5 Neut # (Auto) (2.0 - 7.6 x10 3/uL) 5.35 Lymph # (Auto) (1.0 - 3.8 x10 3/uL) 1.27 [place] # (Auto) (0.1 - 0.8 x10 3/uL) [...] % (Auto) (14.0 - 32.0 %) 15.5 [place] % (Auto) (4.8 - 9.0 %) 8.5 Eos % (Auto) (0.3 - 3.7 %) 5.5 H Baso % (Auto) (0.0 - 2.0 %) 0.4 Neut # (Auto) (2.0 - 7.6 x10 3/uL) 5.94 Lymph # (Auto) (1.0 - 3.8 x10 3/uL) 1.33 [place] # (Auto) (0.1 - 0.8 x10 3/uL) [...] % (Auto) (14.0 - 32.0 %) 16.1 [place] % (Auto) (4.8 - 9.0 %) 9.2 H Eos % (Auto) (0.3 - 3.7 %) 4.7 H Baso % (Auto) (0.0 - 2.0 %) 0.4 Neut # (Auto) (2.0 - 7.6 x10 3/uL) 6.38 Lymph # (Auto) (1.0 - 3.8 x10 3/uL) 1.49 [place] # (Auto) (0.1 - 0.8 x10 3/uL) [...] Vancomycin (mcg/mL) 15.8 09/08 09/07 09/07 0615 6310 2110 Chemistry Sodium (134 - 147 mEq/L) [...] (Auto) (14.0 - 32.0 %) 13.7 L [place] % (Auto) (4.8 - 9.0 %) 7.2 Eos % (Auto) (0.3 - 3.7 %) 4.8 H Baso % (Auto) (0.0 - 2.0 %) 0.3 Neut # (Auto) (2.0 - 7.6 x10 3/uL) 6.64 Lymph # (Auto) (1.0 - 3.8 x10 3/uL) 1.24 [place] # (Auto) (0.1 - 0.8 x10 3/uL) [...] abdomen. Impression By: [email or web address] - Roger Parra M.D. ULTRASOUND - [facility] 09/05 1146 Report Impression - Status: SIGNED Entered: 09/05/2022 1333 IMPRESSION: 1. No evidence of deep vein thrombosis. 2. Complex heterogeneous hypoechoic fluid collection in the left calf region measuring 8.4 x 2.8 x 2.5 cm; there is no internal vascularity or peripheral hyperemia. May represent a hematoma. Impression By: [id number] - Mert Ga M.D. RADIOLOGY - XR CHEST 1 V 09/05 1432 Report Impression - Status: SIGNED Entered: 09/05/2022 1515 IMPRESSION: Minimal bibasilar pulmonary opacities Impression By: RajO Cr Mares M.D. Laboratory Tests: 09/04 09/04 09/04 09/04 09/04 1630 1557 1100 1031 0816 Chemistry POC Glucose (70 - 110 MG/DL) 128 H 107 99 Hematology Hgb (12.5 - 16.9 g/dL) 7.7 L Hct (37.5 - 50.7 %) 23.7 L Toxicology Vancomycin Trough (10.0 - 20.0 mcg/mL) 12.8 09/04 09/04 09/03 09/03 0721 0540 194 1836 Chemistry POC Glucose (70 - 110 MG/DL) 87 124 H Hematology Hgb (12.5 - 16.9 g/dL) 6.8 L Hct (37.5 - 50.7 %) 21.2 L Toxicology Vancomycin Peak (30 - 40 MCG/ML) 27.4 L Microbiology: Date/Time Procedure - Status Source Growth 09/04 1037 Occult Blood - COLB STOOL 1.Diabetes mellitus type 2 uncontrolled complications. 2. 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 4. Sepsis 5. Prostate abscess. 6. Anemia Blood sugar 148-170 mg/dL.H/H 8.11/17. Adjust insulin dose. PT and OT. at 2034 RPT #:[id number] END OF REPORT [facility] 2022-09-21 19:23:00 [facility] Cardiology Progress Note REPORT#:[id number] REPORT STATUS: Signed DATE:09/21/22 TIME: 1922 PATIENT: KARMA ROWLAND UNIT #: [id number] ROOM/BED: [place] [address] : 61 AGE: 56 SEX: M ATTEND: Mj Vences MD ADM AUTHOR: Napoleon Parham MD * ALL edits or amendments must be made on the electronic/computer document * Subjective Chief complaint: weakness Comments: [...] regular rate and rhythm, no ectopy, no gallop Respiratory: clear to auscultation, no distress Abdomen: soft, non-tender Genitourinary: urinary catheter Lower extremity: LE assessment: edema, normal temperature Neuro/QUANTITATIVE ANALYST: alert, oriented X 3 Considered stroke alert: no Wound/incision: Location: right bka Psychiatry: normal affect, normal judgment/insight, normal mood Results Findings/Data: Laboratory Tests 09/21 [...] (Auto) (14.0 - 32.0 %) 11.3 L [place] % (Auto) (4.8 - 9.0 %) 5.3 Eos % (Auto) (0.3 - 3.7 %) 0.2 L Baso % (Auto) (0.0 - 2.0 %) 0.1 Neut # (Auto) (2.0 - 7.6 x10 3/uL) 10.70 H Lymph # (Auto) (1.0 - 3.8 x10 3/uL) 1.47 [place] # (Auto) (0.1 - 0.8 x10 3/uL) [...] 2.06 Diagnosis, Assessment Plan Consultants: cardiology, endocrinology, hospitalist, infectious disease, podiatry Free [...] rehab for physical therapy. Known cardiac history of hypertension and hyperlipidemia. Vital signs stable. Echocardiogram with [...] BMP in the morning. Supportive care. Plan of care discussed with [...] Continue hold diuretic for now. Supportive care. Plan of care discussed with patient, RN and Dr. Parham. 09/15: Repeat echocardiogram showed LVEF of 55 to 60%, no regional wall motion abnormalities, left ventricular diastolic function parameters are indeterminate, mildly dilated [...] Dr. Parham. 09/18: Blood pressure remains elevated due [...] volume status. No new cardiac complaint. Continue steroid taper per nephrology. Progressing in therapy. Discharge planning. [...] per nephrology, supportive care, will follow. at 1925 RPT #:[id number] END OF REPORT [facility] 2022-09-21 13:11:00 [facility] Gastroenterology Progress Note REPORT#:[id number] REPORT STATUS: Signed DATE:09/21/22 TIME: 1311 PATIENT: KARMA ROWLAND UNIT #: [id number] ROOM/BED: [place] [address] : 63 AGE: 56 SEX: M ATTEND: Mj Vences MD ADM AUTHOR: Kassie Avitia MD * ALL edits or amendments must be made on the electronic/computer document * Subjective HPI: Patient is a 56-year-old male with history of diabetes mellitus type 2 and hypertension who was initially admitted for altered mental status and right- sided foot infection. [...] gym. Tolerating diet. Normal BMs. Stable H/H 09/14-Sitting up in wheelchair, family at bedside. Denies [...] kidney disease and mild oozing from his stump. Can consider video capsule endoscopy as outpt if evidence of dropping H/H H/H remains stable Consider reducing frequency of H/H check Will follow along Consultants: cardiology, endocrinology, hospitalist, infectious disease, podiatry at 1312 RPT #:[id number] END OF REPORT [facility] 2022-09-21 11:24:00 [facility] ([facility]) Pain Management Progress Note REPORT#:[id number] REPORT STATUS: Signed DATE:09/21/22 TIME: 112 PATIENT: KARMA ROWLAND UNIT #: [id number] ROOM/BED: [place] [address] : 63 AGE: 56 SEX: M ATTEND: Mj Vences MD ADM AUTHOR: Ben Klein * ALL edits or amendments must be made on the electronic/computer document * Ben Klein 09/21/22 1124: Subjective Chief complaint: Patient seen and examined. Chart/MAR reviewed. Patient is making satisfactory progress. No acute concerns. No bothersome muscle spasms or neuropathy symptoms to report. Patient being seen for Acute postoperative pain, right foot and ankle gangrene, requiring BKA, Neuropathy, Constipation Patient is still requiring medications to help with managing current problems. No fever/chills, chest pain, orthopnea, nausea/vomiting, pruritus, or hallucinations. 14 point ROS undertaken unremarkable except as noted Objective General VS/I O: Vital Signs Date [...] Exam General appearance: alert, awake, oriented, no acute distress Head/eyes: atraumatic, EOMI, normocephalic, normal conjunctiva/sclera, PERRLA ENT: normal ear left, normal ear right Neck: full range of motion, no lymphadenopathy, supple/no meningismus Cardiovascular: regular rate rhythm Respiratory: aerating well Abdomen: soft, non-tender, no distention, active bowel sounds in all quarants. Abdomen quadrants LLQ normal bowel sounds, LUQ normal bowel sounds, RLQ normal bowel sounds, RUQ normal bowel sounds Extremities: moves all, no edema, pedal pulses, right BKA Neuro/QUANTITATIVE ANALYST: 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, no sensory deficits, CNII-XII grossly intact Considered stroke alert: no Skin: dry, intact, no rash Lymphatics: axilla normal Psychiatry: normal affect, normal judgment/insight Results Findings/data: Laboratory Tests: 09/21 09/21 09/20 [...] (Auto) (14.0 - 32.0 %) 11.3 L [place] % (Auto) (4.8 - 9.0 %) 5.3 Eos % (Auto) (0.3 - 3.7 %) 0.2 L Baso % (Auto) (0.0 - 2.0 %) 0.1 Neut # (Auto) (2.0 - 7.6 x10 3/uL) 10.70 H Lymph # (Auto) (1.0 - 3.8 x10 3/uL) 1.47 [place] # (Auto) (0.1 - 0.8 x10 3/uL) [...] foot foot and ankle gangrene, diabetes, hypertension, hyperlipidemia Past Surgical History: TURP, right BKA Family History: Noncontributory Social History: Denies tobacco, alcohol, or drug use Allergies: NKDA Recent prostate abscess -Status post TURP with unroofing of abscess -IV antibiotics with vancomycin until 09-24-2022 Acute postoperative pain, right foot and ankle gangrene, requiring BKA -Patient is at risk for further amputations or loss of limb due to comorbid conditions -Status post right BKA 08/28/2022 -DC [place] 10/325 1 tablet p.o. every 4 hours as needed pain scale 4 10 -DC Dilaudid 0.5 mg IV daily as needed pain scale 7 10, second line therapy () -Tylenol 650 mg p.o. every 6 hours as needed pain scale 1 3 -Percocet 10/325mg every 4 hours as needed, pain scale 4-10 (09/10) -Lidoderm patch to left ankle daily -IV antibiotics with vancomycin until 5- -Local wound care -manageable Diabetic peripheral neuropathy -amitriptyline 25mg PO QHS -Gabapentin 100mg every 8 hours (09/10) -manageable Hypertension -We will monitor hypertension and tachycardia due to pain, and hypotension as well as bradycardia secondary over sedation with narcotics -Hydralazine as needed Elevated LFTs -08/20/22-AST 51, ALT 22 -09/03/2022-AST 15, ALT 7 -Patient will require close monitoring since he is using narcotics with Tylenol Impaired functional mobility, balance, gait, and endurance -PT/OT Antalgic/Impaired gait -PT/OT -Improve strength, endurance, self-care, gait, balance, ADLs -Fall precautions per unit protocol -Pain medications as outlined above Constipation -We will monitor while utilizing opioid narcotic medications. -Adequate fluid intake also discussed. -Colace 100 mg p.o. twice daily as needed -Dulcolax 10 mg rectally daily as needed -Senna lax 8.6mg daily -Miralax 17gm daily -manageable Disposition: percocet 10/325mg q6h prn pain , gabapentin 100mg q8h sent to [facility]/ pharmacy #[id number] [place] [address] [place] [address] ([address]) Phone: Patient has failed conservative medical therapy. Patient will require monitoring while utilize narcotic medications [...] whom agrees. Thank you for the consultation. [place] ORCHESTRA LEADER: -database searched, no information found Kingsley Ng 10/08/222229: Attestations Physician Attestation Agree w/findings plan: The patient was seen and examined by Ben Klein. I personally developed the care plan, which was continued by the mid-level provider. I was immediately available. at 1129 at 2231 RPT #:[id number] END OF REPORT [facility] 2022-09-21 10:32:00 [facility] Hospitalist Progress Note REPORT#:[id number] REPORT STATUS: Signed DATE:09/21/22 TIME: 1032 PATIENT: KARMA ROWLAND UNIT #: [id number] ROOM/BED: [place] [address] : 63 AGE: 56 SEX: M ATTEND: Mj Vences MD ADM AUTHOR: Wilbert Ramires MD * ALL edits or amendments must be made on the electronic/computer document * Subjective Chief complaint: Edema LLE [...] no JVD Cardiovascular: normal heart sounds, regular rate rhythm Respiratory: aerating well, clear to auscultation Abdomen: non-tender, normal bowel sounds Genitourinary: no bladder distention Extremities: edema (1+ pitting edema to thigh), moves all, normal capillary refill Musculoskeletal: normal inspection Neuro/QUANTITATIVE ANALYST: alert, oriented X 3, 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 Considered stroke alert: no Skin: dry, intact Psychiatry: normal affect, normal judgment/insight Results Findings/Data: Laboratory Tests 09/21 09/21 09/20 [...] (Auto) (14.0 - 32.0 %) 11.3 L [place] % (Auto) (4.8 - 9.0 %) 5.3 Eos % (Auto) (0.3 - 3.7 %) 0.2 L Baso % (Auto) (0.0 - 2.0 %) 0.1 Neut # (Auto) (2.0 - 7.6 x10 3/uL) 10.70 H Lymph # (Auto) (1.0 - 3.8 x10 3/uL) 1.47 [place] # (Auto) (0.1 - 0.8 x10 3/uL) [...] 0.1 x10 3/uL) 0.00 Diagnosis, Assessment Plan Consultants: cardiology, endocrinology, hospitalist, infectious disease, podiatry Free Text DxA P Notes Free text DxA P notes: Gangrene of right foot s/p Below- knee amputation Prostate abscess MRSA bacteremia Hx of Diabetes, Diabetic neuropathy HTN ERIKA PLANS: Continue with PT/OT per primary Wound care and Abx as per ID Hepain PPX IV iron BS better but likely to increase with re-initiation of steroids x3 days started by Nephrology for AIN - Endo adjusting insulin pain control creatinine stable. renal following Edema about the same, Lasix as per renal Hgb stabilized. continue to monitor BP elevated. continue to adjust meds at 1402 RPT #:[id number] END OF REPORT [facility] 2022-09-21 10:25:00 [facility]) Podiatry Progress Note REPORT#:[id number] REPORT STATUS: Signed DATE:09/21/22 TIME: 1025 PATIENT: KARMA ROWLAND UNIT #: [id number] ROOM/BED: [place] [address] : 63 AGE: 56 SEX: M ATTEND: Mj Vences MD ADM AUTHOR: Francisco Singh DPM * ALL edits or amendments must be made on the electronic/computer document * Subjective Chief complaint: left heel ulcer. left ankle pain HPI: Patient seen at bedside this morning. No acute overnight events. No changes since yesterday. Review of Systems Constitutional: Denies: chills, fatigue, fever, generalized weakness. Respiratory: Denies: OVIEDO (dyspnea on exertion), hemoptysis, non productive cough, SOB, wheezing. Cardiovascular: Denies: chest pain, OVIEDO (dyspnea on exertion), palpitations. GI: Denies: abdominal pain, constipation, diarrhea, nausea, vomiting. Neuro: Denies: change in LOC, confusion, dizziness, headache, lightheaded. Objective General VS: Last Documented: Result [...] I O ending at 0700: 30 0700 04 1900 Intake Total 120 Output Total 925 2100 Balance -805 -2100 Intake, Oral 120 Number 0 0 Incontinent Voids Number Voids 0 0 Output, Urine 925 2100 Dietitian nutrition assessment The data set between the solid lines has been imported from the dietitian's assessment. BMI Calculated: 27.1 Nutrition related diagnosis: Nutrition diagnosis details: Nutrition problem: Altered nutrition labs Nutrition etiology: DM Nutrition signs and symptoms: HYPER/HYPOGLYCEMIA, A1C >14 Nutrition prescription: CONTINUE RENAL DM DIET Dietitian name: You Palmer, DIET Assessment completed: 09/18/22 Physical Exam General appearance: no acute distress, no respiratory distress Wound/incision: Location: left foot [...] (Auto) (14.0 - 32.0 %) 11.3 L [place] % (Auto) (4.8 - 9.0 %) 5.3 Eos % (Auto) (0.3 - 3.7 %) 0.2 L Baso % (Auto) (0.0 - 2.0 %) 0.1 Neut # (Auto) (2.0 - 7.6 x10 3/uL) 10.70 H Lymph # (Auto) (1.0 - 3.8 x10 3/uL) 1.47 [place] # (Auto) (0.1 - 0.8 x10 3/uL) [...] IV abx on PO gabapentin offloading boot joan wraps to ankle, only when OOB with therapy. zinc oxide interchange with bactroban to dorsal left foot Dr. Jeffrey will follow at 1720 RPT #:[id number] END OF REPORT [facility] 2022-09-21 07:39:00 [facility] Nephrology Progress Note REPORT#:[id number] REPORT STATUS: Signed DATE:09/21/22 TIME: 07 PATIENT: KARMA ROWLAND UNIT #: [id number] ROOM/BED: [place] [address] : 63 AGE: 56 SEX: M ATTEND: Mj Vences MD ADM AUTHOR: Barrera Ramírez MD * ALL edits or amendments must be made on the electronic/computer document * Subjective Chief complaint: Infected foot HPI: Patient seen and evaluated on 09/09/2022, note started, [...] change from initial, feels okay. Review of Systems Constitutional: Reports: [...] no edema Musculoskeletal: no CVA tenderness, no tenderness Neuro/QUANTITATIVE ANALYST: alert, 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 Considered stroke alert: no [...] 32.0 %) 11.3 L 13.0 L 16.5 [place] % (Auto) (4.8 - 9.0 %) 5.3 6.2 8.4 Eos % (Auto) (0.3 - 3.7 %) 0.2 L 0.2 L 2.4 Baso % (Auto) (0.0 - 2.0 %) 0.1 0.1 0.2 Neut # (Auto) (2.0 - 7.6 x10 3/uL) 10.70 H 9.84 H 9.50 H Lymph # (Auto) (1.0 - 3.8 x10 3/uL) 1.47 1.60 2.19 [place] # (Auto) (0.1 - 0.8 x10 3/uL) [...] H 155 H 299 H Laboratory Tests 04/30 0500 Hematology WBC (4.5 - 11.0 x10 [...] (Auto) (14.0 - 32.0 %) 11.3 L [place] % (Auto) (4.8 - 9.0 %) 5.3 Eos % (Auto) (0.3 - 3.7 %) 0.2 L Baso % (Auto) (0.0 - 2.0 %) 0.1 Neut # (Auto) (2.0 - 7.6 x10 3/uL) 10.70 H Lymph # (Auto) (1.0 - 3.8 x10 3/uL) 1.47 [place] # (Auto) (0.1 - 0.8 x10 3/uL) [...] 3/uL) 0.00 Diagnosis, Assessment Plan Free Text A P: Patient seen and evaluated, discussed with care team, images and laboratories reviewed. Diabetes mellitus: Insulin: Monitor blood sugar closely and adjust medications as needed, followed by endocrinology. Hypertension: Blood pressure is not well controlled, increase Coreg to 12.5 mg p.o. twice daily: Monitor blood pressure closely and adjust medications as needed Right foot gangrene/infection status post right BKA Anemia: Status post EGD and colonoscopy which were negative for active GI bleeding, patient had work-up in July 2022 which showed very high B12, normal folate, very low iron saturation but very high ferritin which was likely related to his infection, likely patient is very iron deficient, will repeat lab and give IV iron if needed. We will check serum immunofixation. Acute kidney injury: We will check renal bladder ultrasound, check postvoid residual, check urine protein creatinine ratio Hypomagnesemia: We will supplement 09/10/2022 laboratory this morning showed sodium 135, potassium 4.2, CO2 21, BUN 25, creatinine 1.9 continues to worsen, etiology unclear, however his development some eosinophilia not sure if he is developing AIN, suggest changing cefepime to a different class of antibiotic if possible, will check renal bladder ultrasound 09/11/2022 laboratory this morning showed sodium 134, potassium 4.3, CO2 22, BUN 26, creatinine 2 up from 1.9, hopefully creatinine is plateauing, renal ultrasound negative. 09/12/2022 laboratory this morning showed sodium 134, potassium 4.2, CO2 20, BUN 31, creatinine 2.4 continues to worsen, discussed with ID, AIN is probably the etiology of the unexplained deterioration of his renal function, antibiotics to be adjusted by infectious disease, will give Solu-Medrol 125 mg IV daily for 3 days. Significant lower extremity edema, will start Lasix 20 mg p.o. twice daily. 09.13.23: pt was seen and examined. Very thirsty. serum creatinine is worsening today. Vancomycin was stopped yesterday and Solu medrol was started. Mild hypovolemic hyponatremia. Will DC lasix and monitor his renal functions. BP is well controlled. 23: pt was seen and examined. Feels better but still thirsty. I stopped his lasix. will start NS at 75 cc for [...] plan for kidney biopsy 09/16/2022 laboratory this morning showed sodium 135, potassium 4.5, CO2 20, BUN 60, creatinine 2.7, better down from 2.9, hemoglobin 7.6, platelet 360, blood count 9.5, will give prednisone 80 mg p.o. today, blood pressure is elevated, will add hydralazine 25 mg p.o. 3 times daily, scrotal and LE swelling will give Lasix 40 mg IV x 3 09/17/2022 blood pressure still elevated, will increase hydralazine to 50 mg p.o. 3 times daily, will give 80 mg of prednisone today, urine output with Lasix 4125 , laboratory this morning showed sodium 136, potassium 4.5, CO2 21, BUN 66, creatinine 2.4 down from 2.7, will give 3 more doses of IV Lasix 40 mg every 8 hours 09/18/2022 laboratory this morning showed sodium 138, potassium 4.1, CO2 21, BUN 66, creatinine 2.2 continues to improve, urine output 2.7 L, hemoglobin 7.6, platelet 341, blood count 10.6, will give Lasix 40 mg IV every 8 for 3 doses, start prednisone 60 mg p.o. daily for 3 days, increase hydralazine to 75 mg p.o. 3 times daily. 09/19/2022 blood pressure better, sodium 139, potassium 3.8, CO2 22, BUN 72 up from 66, creatinine 2.3 up from 2.2, will hold off diuretics, urine output reported 2 L, magnesium 1.69 we will give magnesium sulfate 2 g IV x1, continue prednisone. 09/20/2022 laboratory this morning showed sodium 136, potassium 4.2, CO2 21, BUN 76, creatinine 2.2 down from 2.3, hemoglobin 7.6, platelet 302, blood count 12.3 , continue off diuretics 09/21/2022 blood pressure still elevated will increase hydralazine to 100 mg p.o. 3 times daily, hemoglobin 7.6, platelet 296, blood count 13, urine output reported 3025, will start prednisone 50 mg p.o. daily for 3 days, sodium 137, potassium 4.6, CO2 22, BUN 75, creatinine 1.9 down from 2.2 continues to improve. Consultants: cardiology, endocrinology, hospitalist, infectious disease, podiatry at 1247 RPT #:[id number] END OF REPORT [facility] 2022-09-21 06:03:00 [facility] ([facility]) Rehab Progress Note REPORT#:[id number] REPORT STATUS: Signed DATE:09/21/22 TIME: 602 PATIENT: KARMA ROWLAND UNIT #: [id number] ROOM/BED: [place] [address] : 63 AGE: 56 SEX: M ATTEND: Mj Vences MD ADM AUTHOR: Guero Candelaria * ALL edits or amendments must be made on the electronic/computer document * Subjective Chief complaint: Rehab follow-up Doing better States edema improving Eating 75-100% at bedside + BM Denies DICKENS/N/V/D/CP 14 systems reviewed and neg. except that [...] is wearing a nestor-tech orthotic for right knee/BKA protection. Prior to [...] 10-15 WITH LIMITED HEEL LIFT OFF AT THIS TIME. ALSO PERFORMING LAQS WITH 4# ANKLE WEIGHT ON LLE WITH QUAD SET SQUEEZE AT FULL EXTENSION PERFORMING 4 X 10. PT EDUCATED ON HEP WITH RLE QUAD SETS FOR LIMITING ATROPHY WITH RLE WHEN READY TO INITIATE PROTHETIC TRAINING FOR MOBILITY. PT PERFORMING PIVOT TRANSFERS NEEDING CGA FOR SAFETY AND CONTROL. ATTEMPTING HOP STEPS IN // [...] clear bilaterally Abdomen: bowel sounds present, non-distended, soft, non-tender Skin: no rash, R BKA HEALING. 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 Leroy Significant impairment in self-care, ADLs and functional mobility Impaired mobility and gait Acute postoperative pain right BKA Diabetic polyneuropathy DKA, DM 2, poorly controlled, A1c greater than 14 PAD MRSA bacteremia/sepsis-treated on acute ERIKA Severe hyponatremia-resolved HTN Acute on chronic anemia requiring multiple transfusions, possible GI bleed Left calf hematoma Edema and clinical arthritis left ankle Early decubitus to left heel/DTI dorsal left midfoot Prostatic abscess 08/26: S/p transrectal ultrasound aspiration of abscess and transurethral resection of prostate and unroofing of abscess 09/12: Echo: EF 55-59%, grade 1 diastolic dysfunction 09/02: JIMENA negative for vegetation MRSA OF NARES 09/08:s/p EGD and colonoscopy. EGD showed mild gastritis. Colonoscopy showed rectal polyp that was resected by snare (tubular adenoma)-repeat colonoscopy in 5 years Plan: -PLOF: Independent with transfers and gait -Amputee rehab program -Continue PT and OT -15/12 rehabilitation nursing care. -Case management for safe discharge planning. -Decubitus prevention -Early decubitus to left heel/DTI dorsal left midfoot-zinc oxide to the foot, foam, offloading, podiatry managing -DVT prophylaxis-SCD left leg -Strict fall and safety precautions -Work on bed mobility, transfer training, ADLs, pre-gait and gait exercises -Increase endurance and strength -Monitor pain with therapies -OOB to chair -Monitor p.o. intake and nutrition, albumin 1.3, prealbumin less than 5, dietary consultation, protein supplements to promote healing -Diabetes-A1c 14, tight glycemia control- endocrine on board, insulin adjustments -Endocrinology, ID, podiatry, cardiology, IM consulted -Pain management adjusting pain medications -Anemia, patient required multiple units of PRBCs on acute, FOBT positive -IV Protonix-consult GI-serial H H-no evidence of gross bleeding-discussed with Dr. Trinidad -Constipation-abdominal [id number] Senokot and MiraLAX, DSP -MRSA OF NARES on Bactroban protocol -LLE edema-venous Doppler with complex heterogeneous hypoechoic fluid collection in the left calf region measuring 8.4, 2.8, 2.5 cm suggestive of hematoma. On low-dose Lasix. Joan wrap LLE -LE edema could be related to hypoalbuminemia leading to third spacing-edema improving -Generalized edema-some shortness of breath and abdominal distention-cardiology gave a dose of IV Lasix-monitor urine output, daily weights-SOB resolved -09/05-venous Doppler of LLE-negative for DVT-Joan wrap dressing and elevation -Anemia-hemoglobin 8.3, 7.7, 8.2, 7.6, 8 transfused 2 units of PRBC on 09/05 -09/08: s/p EGD and colonoscopy. EGD showed mild gastritis. Colonoscopy showed rectal polyp that was resected by snare. Anemia likely secondary to chronic kidney disease. Consult renal. -Pathology of polyp came back as tubular adenoma. recommend repeating colonoscopy in 5 years as per GI -Consider video capsule endoscopy as outpt if evidence of dropping H/H -Renal ultrasound negative -09/19/2022 blood pressure better, sodium 139, potassium 3.8, CO2 22, BUN 72 up from 66, creatinine 2.3 up from 2.2, will hold off diuretics, urine output reported 2 L, magnesium 1.69 we will give magnesium sulfate 2 g IV x1, continue prednisone-as per renal -MRSA bacteremia and prostatic abscess-WBC 13.3-monitor on Merrem and Daptomycin til 09/24 as per ID -Lasix as per nephrology -Completed Solu-Medrol -09/12: Echo-EF 55-60%, indeterminate diastolic function parameters as per cardio -BP continues to be elevated, Hydralazine increased to 75 mg TID, cont Metoprolol to 25 mg BID -BS better but likely to increase with re-initiation of steroids x3 days started by Nephrology for AIN -Endo adjusting insulin -Car transfer training 09/23 -BUN climbing, but creatinine improving. Diuretics per renal -Check labs 09/21 -Advance therapies as tolerated-discussed treatment plan with patient and -Right IDL-hixpmck-pggdfhgi resolved, dressings changed today-no bleeding after heparin [...] Face to face exam completed. Treatment plan discussed with patient. Meets continued stay criteria. Agree with interdisciplinary treatment plan. at 1650 RPT #:[id number] END OF REPORT [facility] 2022-09-20 18:00:00 [facility] ([facility]) Cardiology Progress Note REPORT#:[id number] REPORT STATUS: Signed DATE:09/20/22 TIME: 1800 PATIENT: KARMA ROWLAND UNIT #: [id number] ROOM/BED: [place] [address] : 61 AGE: 56 SEX: M ATTEND: Mj Vences MD ADM AUTHOR: Napoleon Parham MD * ALL edits or amendments must be made on the electronic/computer document * Subjective Chief complaint: weakness Comments: [...] Exam General appearance: alert, awake, oriented, no acute distress Neck: no bruit/NL carotids, no JVD Cardiovascular: CV assessment: regular rate and rhythm, no ectopy, no gallop Respiratory: clear to auscultation, no distress Abdomen: soft, non-tender Genitourinary: urinary catheter Lower extremity: LE assessment: edema, normal temperature Neuro/QUANTITATIVE ANALYST: alert, oriented X 3 Considered stroke alert: no Wound/incision: Location: right bka Psychiatry: normal affect, normal judgment/insight, normal mood Results Findings/Data: Laboratory Tests 09/20 [...] (Auto) (14.0 - 32.0 %) 13.0 L [place] % (Auto) (4.8 - 9.0 %) 6.2 Eos % (Auto) (0.3 - 3.7 %) 0.2 L Baso % (Auto) (0.0 - 2.0 %) 0.1 Neut # (Auto) (2.0 - 7.6 x10 3/uL) 9.84 H Lymph # (Auto) (1.0 - 3.8 x10 3/uL) 1.60 [place] # (Auto) (0.1 - 0.8 x10 3/uL) [...] 2.05 Diagnosis, Assessment Plan Consultants: cardiology, endocrinology, hospitalist, infectious disease, podiatry Free [...] rehab for physical therapy. Known cardiac history of hypertension and hyperlipidemia. Vital signs stable. Echocardiogram with [...] BMP in the morning. Supportive care. Plan of care discussed with [...] Continue hold diuretic for now. Supportive care. Plan of care discussed with patient, RN and Dr. Parham. 09/15: Repeat echocardiogram showed LVEF of 55 to 60%, no regional wall motion abnormalities, left ventricular diastolic function parameters are indeterminate, mildly dilated [...] Dr. Parham. 09/18: Blood pressure remains elevated due [...] volume status. No new cardiac complaint. Continue steroid taper per nephrology. Progressing in therapy. Discharge planning. Supportive care. Plan of care discussed with patient, RN and Dr. Parham. 09/20: Patient doing much better since started on steroid therapy, creatinine is slowly improving, blood pressure overall improving, nephrology is adjusting antihypertensive medication regimen, diuretic regimen per nephrology, overall stable cardiac status, discussed with patient and . at 1923 RPT #:[id number] END OF REPORT [facility] 2022-09-20 16:11:00 [facility] Endocrinology Progress Note REPORT#:[id number] REPORT STATUS: Signed DATE:09/20/22 TIME: 1611 PATIENT: KARMA ROWLAND UNIT #: [id number] ROOM/BED: G.537-1 : 63 AGE: 56 SEX: M ATTEND: Mj Vences MD ADM AUTHOR: Braxton Chapin MD * ALL edits or amendments must be made on the electronic/computer document * Subjective Patient reports: no complaints [...] (Auto) (14.0 - 32.0 %) 13.0 L [place] % (Auto) (4.8 - 9.0 %) 6.2 Eos % (Auto) (0.3 - 3.7 %) 0.2 L Baso % (Auto) (0.0 - 2.0 %) 0.1 Neut # (Auto) (2.0 - 7.6 x10 3/uL) 9.84 H Lymph # (Auto) (1.0 - 3.8 x10 3/uL) 1.60 [place] # (Auto) (0.1 - 0.8 x10 3/uL) [...] % (Auto) (14.0 - 32.0 %) 16.5 [place] % (Auto) (4.8 - 9.0 %) 8.4 Eos % (Auto) (0.3 - 3.7 %) 2.4 Baso % (Auto) (0.0 - 2.0 %) 0.2 Neut # (Auto) (2.0 - 7.6 x10 3/uL) 9.50 H Lymph # (Auto) (1.0 - 3.8 x10 3/uL) 2.19 [place] # (Auto) (0.1 - 0.8 x10 3/uL) [...] % (Auto) (14.0 - 32.0 %) 17.4 [place] % (Auto) (4.8 - 9.0 %) 6.9 Eos % (Auto) (0.3 - 3.7 %) 0.1 L Baso % (Auto) (0.0 - 2.0 %) 0.1 Neut # (Auto) (2.0 - 7.6 x10 3/uL) 7.91 H Lymph # (Auto) (1.0 - 3.8 x10 3/uL) 1.85 [place] # (Auto) (0.1 - 0.8 x10 3/uL) [...] (Auto) (14.0 - 32.0 %) 10.2 L [place] % (Auto) (4.8 - 9.0 %) 2.9 L Eos % (Auto) (0.3 - 3.7 %) 0.0 L Baso % (Auto) (0.0 - 2.0 %) 0.1 Neut # (Auto) (2.0 - 7.6 x10 3/uL) 7.58 Lymph # (Auto) (1.0 - 3.8 x10 3/uL) 0.91 L [place] # (Auto) (0.1 - 0.8 x10 3/uL) [...] % (Auto) (14.0 - 32.0 %) 18.6 [place] % (Auto) (4.8 - 9.0 %) 6.7 Eos % (Auto) (0.3 - 3.7 %) 0.2 L Baso % (Auto) (0.0 - 2.0 %) 0.1 Neut # (Auto) (2.0 - 7.6 x10 3/uL) 6.99 Lymph # (Auto) (1.0 - 3.8 x10 3/uL) 1.77 [place] # (Auto) (0.1 - 0.8 x10 3/uL) [...] pH (5.0 - 7.0) 5.0 Ur Specific [place] (1.005 - 1.030) 1.013 Urine Protein (NEGATIVE) [...] (Auto) (14.0 - 32.0 %) 11.3 L [place] % (Auto) (4.8 - 9.0 %) 3.2 L Eos % (Auto) (0.3 - 3.7 %) 0.0 L Baso % (Auto) (0.0 - 2.0 %) 0.1 Neut # (Auto) (2.0 - 7.6 x10 3/uL) 7.35 Lymph # (Auto) (1.0 - 3.8 x10 3/uL) 0.98 L [place] # (Auto) (0.1 - 0.8 x10 3/uL) [...] (Auto) (14.0 - 32.0 %) 13.9 L [place] % (Auto) (4.8 - 9.0 %) 5.1 Eos % (Auto) (0.3 - 3.7 %) 0.0 L Baso % (Auto) (0.0 - 2.0 %) 0.1 Neut # (Auto) (2.0 - 7.6 x10 3/uL) 7.58 Lymph # (Auto) (1.0 - 3.8 x10 3/uL) 1.31 [place] # (Auto) (0.1 - 0.8 x10 3/uL) [...] (Auto) (14.0 - 32.0 %) 10.4 L [place] % (Auto) (4.8 - 9.0 %) 3.5 L Eos % (Auto) (0.3 - 3.7 %) 0.0 L Baso % (Auto) (0.0 - 2.0 %) 0.1 Neut # (Auto) (2.0 - 7.6 x10 3/uL) 8.34 H Lymph # (Auto) (1.0 - 3.8 x10 3/uL) 1.02 [place] # (Auto) (0.1 - 0.8 x10 3/uL) [...] % (Auto) (14.0 - 32.0 %) 15.0 [place] % (Auto) (4.8 - 9.0 %) 7.9 Eos % (Auto) (0.3 - 3.7 %) 3.8 H Baso % (Auto) (0.0 - 2.0 %) 0.3 Neut # (Auto) (2.0 - 7.6 x10 3/uL) 6.34 Lymph # (Auto) (1.0 - 3.8 x10 3/uL) 1.31 [place] # (Auto) (0.1 - 0.8 x10 3/uL) [...] % (Auto) (14.0 - 32.0 %) 16.1 [place] % (Auto) (4.8 - 9.0 %) 9.1 H Eos % (Auto) (0.3 - 3.7 %) 5.6 H Baso % (Auto) (0.0 - 2.0 %) 0.5 Neut # (Auto) (2.0 - 7.6 x10 3/uL) 5.35 Lymph # (Auto) (1.0 - 3.8 x10 3/uL) 1.27 [place] # (Auto) (0.1 - 0.8 x10 3/uL) [...] % (Auto) (14.0 - 32.0 %) 15.5 [place] % (Auto) (4.8 - 9.0 %) 8.5 Eos % (Auto) (0.3 - 3.7 %) 5.5 H Baso % (Auto) (0.0 - 2.0 %) 0.4 Neut # (Auto) (2.0 - 7.6 x10 3/uL) 5.94 Lymph # (Auto) (1.0 - 3.8 x10 3/uL) 1.33 [place] # (Auto) (0.1 - 0.8 x10 3/uL) [...] % (Auto) (14.0 - 32.0 %) 16.1 [place] % (Auto) (4.8 - 9.0 %) 9.2 H Eos % (Auto) (0.3 - 3.7 %) 4.7 H Baso % (Auto) (0.0 - 2.0 %) 0.4 Neut # (Auto) (2.0 - 7.6 x10 3/uL) 6.38 Lymph # (Auto) (1.0 - 3.8 x10 3/uL) 1.49 [place] # (Auto) (0.1 - 0.8 x10 3/uL) [...] (Auto) (14.0 - 32.0 %) 13.7 L [place] % (Auto) (4.8 - 9.0 %) 7.2 Eos % (Auto) (0.3 - 3.7 %) 4.8 H Baso % (Auto) (0.0 - 2.0 %) 0.3 Neut # (Auto) (2.0 - 7.6 x10 3/uL) 6.64 Lymph # (Auto) (1.0 - 3.8 x10 3/uL) 1.24 [place] # (Auto) (0.1 - 0.8 x10 3/uL) [...] abdomen. Impression By: [email or web address] - Roger Parra M.D. ULTRASOUND - DUP VEIN UNI/LTD 09/05 1146 Report Impression - Status: SIGNED Entered: 09/05/2022 1333 IMPRESSION: 1. No evidence of deep vein thrombosis. 2. Complex heterogeneous hypoechoic fluid collection in the left calf region measuring 8.4 x 2.8 x 2.5 cm; there is no internal vascularity or peripheral hyperemia. May represent a hematoma. Impression By: TipABJames Ga M.D. RADIOLOGY - XR CHEST 1 V 09/05 1432 Report Impression - Status: SIGNED Entered: 09/05/2022 1515 IMPRESSION: Minimal bibasilar pulmonary opacities Impression By: Yared Mares M.D. Laboratory Tests: 09/04 [...] COLB STOOL 1.Diabetes mellitus type 2 uncontrolled complications. 2. 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 4. Sepsis 5. Prostate abscess. 6. Anemia Blood sugar 301-155 mg/dL.H/H 8.11/17. Adjust insulin dose. PT and OT. at 1611 RPT #:[id number] END OF REPORT [facility] 2022-09-20 13:40:00 [facility] Gastroenterology Progress Note REPORT#:[id number] REPORT STATUS: Signed DATE:09/20/22 TIME: 1340 PATIENT: KARMA ROWLAND UNIT #: [id number] ROOM/BED: 537-1 : 63 AGE: 56 SEX: M ATTEND: Mj Vences MD ADM AUTHOR: Kassie Avitia MD * ALL edits or amendments must be made on the electronic/computer document * Subjective HPI: Patient is a 56-year-old male with history of diabetes mellitus type 2 and hypertension who was initially admitted for altered mental status and right- sided foot infection. [...] gym. Tolerating diet. Normal BMs. Stable H/H 09/14-Sitting up in wheelchair, family at bedside. Denies [...] kidney disease and mild oozing from his stump. Can consider video capsule endoscopy as outpt if evidence of dropping H/H H/H remains stable Consider reducing frequency of H/H check Will follow along Consultants: cardiology, endocrinology, hospitalist, infectious disease, podiatry at 1341 RPT #:[id number] END OF REPORT [facility] 2022-09-20 10:45:00 [facility] Hospitalist Progress Note REPORT#:[id number] REPORT STATUS: Signed DATE:09/20/22 TIME: 1045 PATIENT: KARMA ROWLAND UNIT #: [id number] ROOM/BED: [place] [address] : 61 AGE: 56 SEX: M ATTEND: Mj Vences MD ADM AUTHOR: Wilbert Ramires MD * ALL edits or amendments must be made on the electronic/computer document * Subjective Chief complaint: Edema LLE [...] no JVD Cardiovascular: normal heart sounds, regular rate rhythm Respiratory: aerating well, clear to auscultation Abdomen: non-tender, normal bowel sounds Genitourinary: no bladder distention Extremities: edema (1+ pitting edema to thigh), moves all, normal capillary refill Musculoskeletal: normal inspection Neuro/QUANTITATIVE ANALYST: alert, oriented X 3, 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 Considered stroke alert: no Skin: dry, intact Psychiatry: normal affect, normal judgment/insight Results Findings/Data: Laboratory Tests 09/20 09/20 09/20 [...] (Auto) (14.0 - 32.0 %) 13.0 L [place] % (Auto) (4.8 - 9.0 %) 6.2 Eos % (Auto) (0.3 - 3.7 %) 0.2 L Baso % (Auto) (0.0 - 2.0 %) 0.1 Neut # (Auto) (2.0 - 7.6 x10 3/uL) 9.84 H Lymph # (Auto) (1.0 - 3.8 x10 3/uL) 1.60 [place] # (Auto) (0.1 - 0.8 x10 3/uL) [...] 0.1 x10 3/uL) 0.00 Diagnosis, Assessment Plan Consultants: cardiology, endocrinology, hospitalist, infectious disease, podiatry Free Text DxA P Notes Free text DxA P notes: Gangrene of right foot s/p Below- knee amputation Prostate abscess MRSA bacteremia Hx of Diabetes, Diabetic neuropathy HTN ERIKA PLANS: Continue with PT/OT per primary Wound care and Abx as per ID Hepain PPX IV iron BP continues to be elevated, Hydralazine increased to 75 mg TID, cont Metoprolol to 25 mg BID BS better but likely to increase with re-initiation of steroids x3 days started by Nephrology for AIN - Endo adjusting insulin pain control Cr at 2.2, Nephrology following, re-started Prednisone 60 mg for 2 days Edema about the same, Lasix as per renal Hgb stabilized. continue to monitor at 1045 RPT #:[id number] END OF REPORT [facility] 2022-09-20 10:32:00 [facility] ([facility]) Podiatry Progress Note REPORT#:[id number] REPORT STATUS: Signed DATE:09/20/22 TIME: 1032 PATIENT: KARMA ROWLAND UNIT #: [id number] ROOM/BED: [place] [address] : 63 AGE: 56 SEX: M ATTEND: Mj Vences MD ADM AUTHOR: Francisco Singh DPM * ALL edits or amendments must be made on the electronic/computer document * Subjective Chief complaint: left heel ulcer. left ankle pain HPI: Patient seen at bedside this morning. No acute overnight events. No changes since yesterday. Review of Systems Constitutional: Denies: chills, fatigue, fever, generalized weakness. Respiratory: Denies: OVIEDO (dyspnea on exertion), hemoptysis, non productive cough, productive cough (sputum), SOB. Cardiovascular: Denies: chest pain, OVIEDO (dyspnea on exertion), palpitations. GI: Denies: abdominal pain, constipation, diarrhea, nausea, vomiting. Neuro: Denies: change in LOC, confusion, dizziness, headache, lightheaded. Objective General VS: Last Documented: Result [...] imported from the dietitian's assessment. BMI Calculated: 27.1 Nutrition related diagnosis: Nutrition diagnosis details: Nutrition problem: Altered nutrition labs Nutrition etiology: DM Nutrition signs and symptoms: HYPER/HYPOGLYCEMIA, A1C >14 Nutrition prescription: CONTINUE RENAL DM DIET Dietitian name: You Palmer, DIET Assessment completed: 09/18/22 Physical Exam General appearance: alert, awake, oriented, no acute distress, pleasant, conversational, mental status normal, no respiratory distress Wound/incision: Location: left foot [...] (Auto) (14.0 - 32.0 %) 13.0 L [place] % (Auto) (4.8 - 9.0 %) 6.2 Eos % (Auto) (0.3 - 3.7 %) 0.2 L Baso % (Auto) (0.0 - 2.0 %) 0.1 Neut # (Auto) (2.0 - 7.6 x10 3/uL) 9.84 H Lymph # (Auto) (1.0 - 3.8 x10 3/uL) 1.60 [place] # (Auto) (0.1 - 0.8 x10 3/uL) [...] IV abx on PO gabapentin offloading boot joan wraps to ankle, only when OOB with therapy. zinc oxide interchange with bactroban to dorsal left foot Covering for Dr. Jeffrey Consultants: cardiology, endocrinology, hospitalist, infectious disease, podiatry at 1620 RPT #:[id number] END OF REPORT [facility] 2022-09-20 09:08:00 [facility] Nephrology Progress Note REPORT#:[id number] REPORT STATUS: Signed DATE:09/20/22 TIME: 09 PATIENT: KARMA ROWLAND UNIT #: [id number] ROOM/BED: [place] [address] : 63 AGE: 56 SEX: M ATTEND: Mj Vences MD ADM AUTHOR: Barrera Ramírez MD * ALL edits or amendments must be made on the electronic/computer document * Subjective Chief complaint: Infected foot HPI: Patient seen and evaluated on 09/09/2022, note started, [...] change from initial, feels okay. Review of Systems Constitutional: Reports: [...] 2GM/SWFI 50ML) 50 ML ONCE ONE IV ( DC) [...] no edema Musculoskeletal: no CVA tenderness, no tenderness Neuro/QUANTITATIVE ANALYST: alert, 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 Considered stroke alert: no [...] (Auto) (14.0 - 32.0 %) 13.0 L [place] % (Auto) (4.8 - 9.0 %) 6.2 Eos % (Auto) (0.3 - 3.7 %) 0.2 L Baso % (Auto) (0.0 - 2.0 %) 0.1 Neut # (Auto) (2.0 - 7.6 x10 3/uL) 9.84 H Lymph # (Auto) (1.0 - 3.8 x10 3/uL) 1.60 [place] # (Auto) (0.1 - 0.8 x10 3/uL) [...] 3/uL) 0.00 Diagnosis, Assessment Plan Free Text A P: Patient seen and evaluated, discussed with care team, images and laboratories reviewed. Diabetes mellitus: Insulin: Monitor blood sugar closely and adjust medications as needed, followed by endocrinology. Hypertension: Blood pressure is not well controlled, increase Coreg to 12.5 mg p.o. twice daily: Monitor blood pressure closely and adjust medications as needed Right foot gangrene/infection status post right BKA Anemia: Status post EGD and colonoscopy which were negative for active GI bleeding, patient had work-up in July 2022 which showed very high B12, normal folate, very low iron saturation but very high ferritin which was likely related to his infection, likely patient is very iron deficient, will repeat lab and give IV iron if needed. We will check serum immunofixation. Acute kidney injury: We will check renal bladder ultrasound, check postvoid residual, check urine protein creatinine ratio Hypomagnesemia: We will supplement 09/10/2022 laboratory this morning showed sodium 135, potassium 4.2, CO2 21, BUN 25, creatinine 1.9 continues to worsen, etiology unclear, however his development some eosinophilia not sure if he is developing AIN, suggest changing cefepime to a different class of antibiotic if possible, will check renal bladder ultrasound 09/11/2022 laboratory this morning showed sodium 134, potassium 4.3, CO2 22, BUN 26, creatinine 2 up from 1.9, hopefully creatinine is plateauing, renal ultrasound negative. 09/12/2022 laboratory this morning showed sodium 134, potassium 4.2, CO2 20, BUN 31, creatinine 2.4 continues to worsen, discussed with ID, AIN is probably the etiology of the unexplained deterioration of his renal function, antibiotics to be adjusted by infectious disease, will give Solu-Medrol 125 mg IV daily for 3 days. Significant lower extremity edema, will start Lasix 20 mg p.o. twice daily. 09.13.22: pt was seen and examined. Very thirsty. serum creatinine is worsening today. Vancomycin was stopped yesterday and Solu medrol was started. Mild hypovolemic hyponatremia. Will DC lasix and monitor his renal functions. BP is well controlled. 09.14.22: pt was seen and examined. Feels better but still thirsty. I stopped his lasix. will start NS at 75 cc for [...] plan for kidney biopsy 09/16/2022 laboratory this morning showed sodium 135, potassium 4.5, CO2 20, BUN 60, creatinine 2.7, better down from 2.9, hemoglobin 7.6, platelet 360, blood count 9.5, will give prednisone 80 mg p.o. today, blood pressure is elevated, will add hydralazine 25 mg p.o. 3 times daily, scrotal and LE swelling will give Lasix 40 mg IV x 3 09/17/2022 blood pressure still elevated, will increase hydralazine to 50 mg p.o. 3 times daily, will give 80 mg of prednisone today, urine output with Lasix 4125 , laboratory this morning showed sodium 136, potassium 4.5, CO2 21, BUN 66, creatinine 2.4 down from 2.7, will give 3 more doses of IV Lasix 40 mg every 8 hours 09/18/2022 laboratory this morning showed sodium 138, potassium 4.1, CO2 21, BUN 66, creatinine 2.2 continues to improve, urine output 2.7 L, hemoglobin 7.6, platelet 341, blood count 10.6, will give Lasix 40 mg IV every 8 for 3 doses, start prednisone 60 mg p.o. daily for 3 days, increase hydralazine to 75 mg p.o. 3 times daily. 09/19/2022 blood pressure better, sodium 139, potassium 3.8, CO2 22, BUN 72 up from 66, creatinine 2.3 up from 2.2, will hold off diuretics, urine output reported 2 L, magnesium 1.69 we will give magnesium sulfate 2 g IV x1, continue prednisone. 09/20/2022 laboratory this morning showed sodium 136, potassium 4.2, CO2 21, BUN 76, creatinine 2.2 down from 2.3, hemoglobin 7.6, platelet 302, blood count 12.3 , continue off diuretics Consultants: cardiology, endocrinology, hospitalist, infectious disease, podiatry at 1137 RPT #:[id number] END OF REPORT [facility] 2022-09-20 08:44:00 [facility] ([facility]) Pain Management Progress Note REPORT#:[id number] REPORT STATUS: Signed DATE:09/20/22 TIME: 08 PATIENT: KARMA ROWLAND UNIT #: [id number] ROOM/BED: [place] [address] : 61 AGE: 56 SEX: M ATTEND: Mj Vences MD ADM AUTHOR: Ben Klein * ALL edits or amendments must be made on the electronic/computer document * Ben Klein 09/20/22 0844: Subjective [...] fever/chills, chest pain, orthopnea, nausea/vomiting, pruritus, or hallucinations. 14 point ROS undertaken unremarkable except as noted Objective General VS/I O: Vital Signs Date [...] 2GM/SWFI 50ML) 50 ML ONCE ONE IV ( DC) [...] alert, awake, oriented Head/eyes: atraumatic, EOMI, normocephalic, normal conjunctiva/sclera, PERRLA ENT: normal ear left Neck: full range of motion, no lymphadenopathy, supple/no meningismus Cardiovascular: regular rate rhythm Respiratory: aerating well Abdomen: soft, non-tender, no distention, active bowel sounds in all quarants. Abdomen quadrants LLQ normal bowel sounds, LUQ normal bowel sounds, RLQ normal bowel sounds, RUQ normal bowel sounds Extremities: moves all, no edema, pedal pulses, right BKA Neuro/QUANTITATIVE ANALYST: 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, no sensory deficits, CNII-XII grossly intact Considered stroke alert: no [...] (Auto) (14.0 - 32.0 %) 13.0 L [place] % (Auto) (4.8 - 9.0 %) 6.2 Eos % (Auto) (0.3 - 3.7 %) 0.2 L Baso % (Auto) (0.0 - 2.0 %) 0.1 Neut # (Auto) (2.0 - 7.6 x10 3/uL) 9.84 H Lymph # (Auto) (1.0 - 3.8 x10 3/uL) 1.60 [place] # (Auto) (0.1 - 0.8 x10 3/uL) [...] foot foot and ankle gangrene, diabetes, hypertension, hyperlipidemia Past Surgical History: TURP, right BKA Family History: Noncontributory Social History: Denies tobacco, alcohol, or drug use Allergies: NKDA Recent prostate abscess -Status post TURP with unroofing of abscess -IV antibiotics with vancomycin until 09-24-2022 Acute postoperative pain, right foot and ankle gangrene, requiring BKA -Patient is at risk for further amputations or loss of limb due to comorbid conditions -Status post right BKA 08/28/2022 -DC [place] 10/325 1 tablet p.o. every 4 hours as needed pain scale 4 10 -DC Dilaudid 0.5 mg IV daily as needed pain scale 7 10, second line therapy () -Tylenol 650 mg p.o. every 6 hours as needed pain scale 1 3 -Percocet 10/325mg every 4 hours as needed, pain scale 4-10 (09/10) -Lidoderm patch to left ankle daily -IV antibiotics with vancomycin until 09-24-2022 -Local wound care -manageable Diabetic peripheral neuropathy -amitriptyline 25mg PO QHS -Gabapentin 100mg every 8 hours (09/10) -manageable Hypertension -We will monitor hypertension and tachycardia due to pain, and hypotension as well as bradycardia secondary over sedation with narcotics -Hydralazine as needed Elevated LFTs -08/20/22-AST 51, ALT 22 -09/03/2022-AST 15, ALT 7 -Patient will require close monitoring since he is using narcotics with Tylenol Impaired functional mobility, balance, gait, and endurance -PT/OT Antalgic/Impaired gait -PT/OT -Improve strength, endurance, self-care, gait, balance, ADLs -Fall precautions per unit protocol -Pain medications as outlined above Constipation -We will monitor while utilizing opioid narcotic medications. -Adequate fluid intake also discussed. -Colace 100 mg p.o. twice daily as needed -Dulcolax 10 mg rectally daily as needed -Senna lax 8.6mg daily -Miralax 17gm daily -manageable Disposition: percocet 10/325mg q6h prn pain , gabapentin 100mg q8h sent to [facility]/ pharmacy #[id number] [place] [address] ([address]) Phone: Patient has failed conservative medical therapy. Patient will require monitoring while utilize narcotic medications [...] whom agrees. Thank you for the consultation. [place] ORCHESTRA LEADER: -database searched, no information found Kingsley Ng 10/08/222044: Attestations Physician Attestation Agree w/findings plan: The patient was seen and examined by Ben Klein. I personally developed the care plan, which was continued by the mid-level provider. I was immediately available. at 1124 at 2046 RPT #:[id number] END OF REPORT [facility] 2022-09-20 06:21:00 [facility] ([facility]) Rehab Progress Note REPORT#:[id number] REPORT STATUS: Signed DATE:09/20/22 TIME: 620 PATIENT: KARMA ROWLAND UNIT #: [id number] ROOM/BED: [place] [address] : 61 AGE: 56 SEX: M ATTEND: Mj Vences MD ADM AUTHOR: Guero Candelaria * ALL edits or amendments must be made on the electronic/computer document * Subjective Chief complaint: Rehab follow-up Doing better BKA site without bleeding Generalized and scrotal edema slowly improving BP improved Eating 75-100% at bedside + BM Denies DICKENS/N/V/D/CP 14 systems reviewed and neg. except that [...] is wearing a nestor-tech orthotic for right knee/BKA protection. Prior to [...] 2GM/SWFI 50ML) 50 ML ONCE ONE IV ( DC) [...] PIVOT TRANSFERS TO MOVEO. 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 SPOUSE IS FEELING MORE COMFORTABLE WITH WOUND [...] clear bilaterally Abdomen: bowel sounds present, non-distended, soft, non-tender Skin: no rash, R BKA HEALING. 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 Leroy Significant impairment in self-care, ADLs and functional mobility Impaired mobility and gait Acute postoperative pain right BKA Diabetic polyneuropathy DKA, DM 2, poorly controlled, A1c greater than 14 PAD MRSA bacteremia/sepsis-treated on acute ERIKA Severe hyponatremia-resolved HTN Acute on chronic anemia requiring multiple transfusions, possible GI bleed Left calf hematoma Edema and clinical arthritis left ankle Early decubitus to left heel/DTI dorsal left midfoot Prostatic abscess 08/26: S/p transrectal ultrasound aspiration of abscess and transurethral resection of prostate and unroofing of abscess 09/12: Echo: EF 55-59%, grade 1 diastolic dysfunction 09/02: JIMENA negative for vegetation MRSA OF NARES 09/08:s/p EGD and colonoscopy. EGD showed mild gastritis. Colonoscopy showed rectal polyp that was resected by snare (tubular adenoma)-repeat colonoscopy in 5 years Plan: -PLOF: Independent with transfers and gait -Amputee rehab program -Continue PT and OT -15/12 rehabilitation nursing care. -Case management for safe discharge planning. -Decubitus prevention -Early decubitus to left heel/DTI dorsal left midfoot-zinc oxide to the foot, foam, offloading, podiatry managing -DVT prophylaxis-SCD left leg -Strict fall and safety precautions -Work on bed mobility, transfer training, ADLs, pre-gait and gait exercises -Increase endurance and strength -Monitor pain with therapies -OOB to chair -Monitor p.o. intake and nutrition, albumin 1.3, prealbumin less than 5, dietary consultation, protein supplements to promote healing -Diabetes-A1c 14, tight glycemia control- endocrine on board, insulin adjustments -Endocrinology, ID, podiatry, cardiology, IM consulted -Pain management adjusting pain medications -Anemia, patient required multiple units of PRBCs on acute, FOBT positive -IV Protonix-consult GI-serial H H-no evidence of gross bleeding-discussed with Dr. Trinidad -Constipation-abdominal xthsexol-HUP-okxggn-CW Senokot and MiraLAX, DSP -MRSA OF NARES on Bactroban protocol -LLE edema-venous Doppler with complex heterogeneous hypoechoic fluid collection in the left calf region measuring 8.4, 2.8, 2.5 cm suggestive of hematoma. On low-dose Lasix. Joan wrap LLE -LE edema could be related to hypoalbuminemia leading to third spacing-edema improving -Generalized edema-some shortness of breath and abdominal distention-cardiology gave a dose of IV Lasix-monitor urine output, daily weights-SOB resolved -09/05-venous Doppler of LLE-negative for DVT-Joan wrap dressing and elevation -Anemia-hemoglobin 8.3, 7.7, 8.2, 7.6, 8 transfused 2 units of PRBC on 09/05 -09/08: s/p EGD and colonoscopy. EGD showed mild gastritis. Colonoscopy showed rectal polyp that was resected by snare. Anemia likely secondary to chronic kidney disease. Consult renal. -Pathology of polyp came back as tubular adenoma. recommend repeating colonoscopy in 5 years as per GI -Consider video capsule endoscopy as outpt if evidence of dropping H/H -Renal ultrasound negative -09/19/2022 blood pressure better, sodium 139, potassium 3.8, CO2 22, BUN 72 up from 66, creatinine 2.3 up from 2.2, will hold off diuretics, urine output reported 2 L, magnesium 1.69 we will give magnesium sulfate 2 g IV x1, continue prednisone-as per renal -MRSA bacteremia and prostatic abscess-WBC 13.3-monitor on Merrem and Daptomycin til 09/24 as per ID -Lasix as per nephrology -Completed Solu-Medrol -09/12: Echo-EF 55-60%, indeterminate diastolic function parameters as per cardio -BP continues to be elevated, Hydralazine increased to 75 mg TID, cont Metoprolol to 25 mg BID -BS better but likely to increase with re-initiation of steroids x3 days started by Nephrology for AIN -Endo adjusting insulin -Car transfer training 09/23 -Creatinine continues to improve-discussed with patient and about renal issues are improving -Advance therapies as tolerated-discussed treatment plan with patient and -Right WPH-nzbqdrv-oymshytl resolved, dressings changed today-no bleeding after heparin [...] reviewed. All questions answered Consultants: cardiology, endocrinology, hospitalist, infectious disease, podiatry Rehab attestation: Face to face exam completed. Treatment plan discussed with patient. Meets continued stay criteria. Agree with interdisciplinary treatment plan. at 1340 RPT #:[id number] END OF REPORT [facility] 2022-09-19 20:22:00 [facility] ([facility]) Podiatry Progress Note REPORT#:[id number] REPORT STATUS: Signed DATE:09/19/22 TIME: 2021 PATIENT: KARMA ROWLAND UNIT #: [id number] ROOM/BED: [place] [address] : 63 AGE: 56 SEX: M ATTEND: Mj Vences MD ADM AUTHOR: Liam Jeffrey DPM * ALL edits or amendments must be made on the electronic/computer document * Subjective Chief complaint: left heel ulcer. left ankle pain Patient reports: no confusion, no diarrhea, no fatigue, no heartburn Objective General VS: Last Documented: [...] 2GM/SWFI 50ML) 50 ML ONCE ONE IV ( DC) [...] Voids 0 Output, Urine 2000 Dietitian nutrition assessment The data set between the solid lines has been imported from the dietitian's assessment. BMI Calculated: 27.1 Nutrition related diagnosis: Nutrition diagnosis details: Nutrition problem: Altered nutrition labs Nutrition etiology: DM Nutrition signs and symptoms: HYPER/HYPOGLYCEMIA, A1C >14 Nutrition prescription: CONTINUE RENAL DM [...] % (Auto) (14.0 - 32.0 %) 16.5 [place] % (Auto) (4.8 - 9.0 %) 8.4 Eos % (Auto) (0.3 - 3.7 %) 2.4 Baso % (Auto) (0.0 - 2.0 %) 0.2 Neut # (Auto) (2.0 - 7.6 x10 3/uL) 9.50 H Lymph # (Auto) (1.0 - 3.8 x10 3/uL) 2.19 [place] # (Auto) (0.1 - 0.8 x10 3/uL) [...] IV abx on PO gabapentin offloading boot joan wraps to ankle, only when OOB with therapy. zinc oxide interchange with bactroban to dorsal left foot Consultants: cardiology, endocrinology, hospitalist, infectious disease, podiatry at 2022 RPT #:[id number] END OF REPORT [facility] 2022-09-19 15:29:00 [facility] ([facility]) Pain Management Progress Note REPORT#:[id number] REPORT STATUS: Signed DATE:09/19/22 TIME: 152 PATIENT: KARMA ROWLAND UNIT #: [id number] ROOM/BED: [place] [address] : 61 AGE: 56 SEX: M ATTEND: Mj Vences MD ADM AUTHOR: Ben Klein * ALL edits or amendments must be made on the electronic/computer document * Ben Klein 09/19/22 1529: Subjective [...] fever/chills, chest pain, orthopnea, nausea/vomiting, pruritus, or hallucinations. 14 point ROS undertaken unremarkable except as noted Objective General VS/I O: Vital Signs Date [...] 2GM/SWFI 50ML) 50 ML ONCE ONE IV ( DC) [...] Exam General appearance: alert, awake, oriented, no acute distress Head/eyes: atraumatic, EOMI, normocephalic, normal conjunctiva/sclera, PERRLA ENT: normal pharynx, moist mucosal membranes Neck: full range of motion, no lymphadenopathy, supple/no meningismus Cardiovascular: regular rate rhythm Respiratory: clear to auscultation, no distress Abdomen: soft, non-tender, no distention, active bowel sounds in all quarants. Abdomen quadrants LLQ normal bowel sounds, LUQ normal bowel sounds, RLQ normal bowel sounds, RUQ normal bowel sounds Extremities: moves all, no edema, pedal pulses, right BKA Neuro/QUANTITATIVE ANALYST: 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, no sensory deficits, CNII-XII grossly intact Considered stroke alert: no [...] % (Auto) (14.0 - 32.0 %) 16.5 [place] % (Auto) (4.8 - 9.0 %) 8.4 Eos % (Auto) (0.3 - 3.7 %) 2.4 Baso % (Auto) (0.0 - 2.0 %) 0.2 Neut # (Auto) (2.0 - 7.6 x10 3/uL) 9.50 H Lymph # (Auto) (1.0 - 3.8 x10 3/uL) 2.19 [place] # (Auto) (0.1 - 0.8 x10 3/uL) [...] foot foot and ankle gangrene, diabetes, hypertension, hyperlipidemia Past Surgical History: TURP, right BKA Family History: Noncontributory Social History: Denies tobacco, alcohol, or drug use Allergies: NKDA Recent prostate abscess -Status post TURP with unroofing of abscess -IV antibiotics with vancomycin until 09-24-2022 Acute postoperative pain, right foot and ankle gangrene, requiring BKA -Patient is at risk for further amputations or loss of limb due to comorbid conditions -Status post right BKA 08/28/2022 -DC [place] 10/325 1 tablet p.o. every 4 hours as needed pain scale 4 10 -DC Dilaudid 0.5 mg IV daily as needed pain scale 7 10, second line therapy () -Tylenol 650 mg p.o. every 6 hours as needed pain scale 1 3 -Percocet 10/325mg every 4 hours as needed, pain scale 4-10 (09/10) -Lidoderm patch to left ankle daily -IV antibiotics with vancomycin until 5- -Local wound care -manageable Diabetic peripheral neuropathy -amitriptyline 25mg PO QHS -Gabapentin 100mg every 8 hours (09/10) -manageable Hypertension -We will monitor hypertension and tachycardia due to pain, and hypotension as well as bradycardia secondary over sedation with narcotics -Hydralazine as needed Elevated LFTs -08/20/22-AST 51, ALT 22 -09/03/2022-AST 15, ALT 7 -Patient will require close monitoring since he is using narcotics with Tylenol Impaired functional mobility, balance, gait, and endurance -PT/OT Antalgic/Impaired gait -PT/OT -Improve strength, endurance, self-care, gait, balance, ADLs -Fall precautions per unit protocol -Pain medications as outlined above Constipation -We will monitor while utilizing opioid narcotic medications. -Adequate fluid intake also discussed. -Colace 100 mg p.o. twice daily as needed -Dulcolax 10 mg rectally daily as needed -Senna lax 8.6mg daily -Miralax 17gm daily -manageable Disposition: percocet 10/325mg q6h prn pain , gabapentin 100mg q8h sent to [facility]/ pharmacy #[id number] [place] [address] [place] [address] ([address]) Phone: Patient has failed conservative medical therapy. Patient will require monitoring while utilize narcotic medications [...] whom agrees. Thank you for the consultation. [place] ORCHESTRA LEADER: -database searched, no information found Kingsley Ng 10/07/22 1701: Attestations Physician Attestation Agree w/findings plan: The patient was seen and examined by Ben Klein. I personally developed the care plan, which was continued by the mid-level provider. I was immediately available. at 1530 at 1708 RPT #:[id number] END OF REPORT [facility] 2022-09-19 14:59:00 [facility] Endocrinology Progress Note REPORT#:[id number] REPORT STATUS: Signed DATE:09/19/22 TIME: 1459 PATIENT: KARMA ROWLAND UNIT #: [id number] ROOM/BED: [place] [address] : 61 AGE: 56 SEX: M ATTEND: Mj Vences MD ADM AUTHOR: Braxton Chapin MD * ALL edits or amendments must be made on the electronic/computer document * Subjective Patient reports: no complaints [...] 24 Hrs Magnesium Sulfate (MAGNESIUM SULFATE 2GM/SWFI 50ML) 50 ML ONCE ONE IV ( DC) [...] % (Auto) (14.0 - 32.0 %) 16.5 [place] % (Auto) (4.8 - 9.0 %) 8.4 Eos % (Auto) (0.3 - 3.7 %) 2.4 Baso % (Auto) (0.0 - 2.0 %) 0.2 Neut # (Auto) (2.0 - 7.6 x10 3/uL) 9.50 H Lymph # (Auto) (1.0 - 3.8 x10 3/uL) 2.19 [place] # (Auto) (0.1 - 0.8 x10 3/uL) [...] % (Auto) (14.0 - 32.0 %) 17.4 [place] % (Auto) (4.8 - 9.0 %) 6.9 Eos % (Auto) (0.3 - 3.7 %) 0.1 L Baso % (Auto) (0.0 - 2.0 %) 0.1 Neut # (Auto) (2.0 - 7.6 x10 3/uL) 7.91 H Lymph # (Auto) (1.0 - 3.8 x10 3/uL) 1.85 [place] # (Auto) (0.1 - 0.8 x10 3/uL) [...] (Auto) (14.0 - 32.0 %) 10.2 L [place] % (Auto) (4.8 - 9.0 %) 2.9 L Eos % (Auto) (0.3 - 3.7 %) 0.0 L Baso % (Auto) (0.0 - 2.0 %) 0.1 Neut # (Auto) (2.0 - 7.6 x10 3/uL) 7.58 Lymph # (Auto) (1.0 - 3.8 x10 3/uL) 0.91 L [place] # (Auto) (0.1 - 0.8 x10 3/uL) [...] % (Auto) (14.0 - 32.0 %) 18.6 [place] % (Auto) (4.8 - 9.0 %) 6.7 Eos % (Auto) (0.3 - 3.7 %) 0.2 L Baso % (Auto) (0.0 - 2.0 %) 0.1 Neut # (Auto) (2.0 - 7.6 x10 3/uL) 6.99 Lymph # (Auto) (1.0 - 3.8 x10 3/uL) 1.77 [place] # (Auto) (0.1 - 0.8 x10 3/uL) [...] pH (5.0 - 7.0) 5.0 Ur Specific [place] (1.005 - 1.030) 1.013 Urine Protein (NEGATIVE) [...] (Auto) (14.0 - 32.0 %) 11.3 L [place] % (Auto) (4.8 - 9.0 %) 3.2 L Eos % (Auto) (0.3 - 3.7 %) 0.0 L Baso % (Auto) (0.0 - 2.0 %) 0.1 Neut # (Auto) (2.0 - 7.6 x10 3/uL) 7.35 Lymph # (Auto) (1.0 - 3.8 x10 3/uL) 0.98 L [place] # (Auto) (0.1 - 0.8 x10 3/uL) [...] 09/14 09/14 09/14 09/14 09/13 1130 0736 0591 5246 1300 Chemistry Sodium (134 - 147 mEq/L) 132 [...] (Auto) (14.0 - 32.0 %) 13.9 L [place] % (Auto) (4.8 - 9.0 %) 5.1 Eos % (Auto) (0.3 - 3.7 %) 0.0 L Baso % (Auto) (0.0 - 2.0 %) 0.1 Neut # (Auto) (2.0 - 7.6 x10 3/uL) 7.58 Lymph # (Auto) (1.0 - 3.8 x10 3/uL) 1.31 [place] # (Auto) (0.1 - 0.8 x10 3/uL) [...] Laboratory Tests: 09/13 09/13 09/13 09/12 1105 0536 0450 2016 Chemistry Sodium (134 - 147 mEq/L) [...] (Auto) (14.0 - 32.0 %) 10.4 L [place] % (Auto) (4.8 - 9.0 %) 3.5 L Eos % (Auto) (0.3 - 3.7 %) 0.0 L Baso % (Auto) (0.0 - 2.0 %) 0.1 Neut # (Auto) (2.0 - 7.6 x10 3/uL) 8.34 H Lymph # (Auto) (1.0 - 3.8 x10 3/uL) 1.02 [place] # (Auto) (0.1 - 0.8 x10 3/uL) [...] % (Auto) (14.0 - 32.0 %) 15.0 [place] % (Auto) (4.8 - 9.0 %) 7.9 Eos % (Auto) (0.3 - 3.7 %) 3.8 H Baso % (Auto) (0.0 - 2.0 %) 0.3 Neut # (Auto) (2.0 - 7.6 x10 3/uL) 6.34 Lymph # (Auto) (1.0 - 3.8 x10 3/uL) 1.31 [place] # (Auto) (0.1 - 0.8 x10 3/uL) [...] % (Auto) (14.0 - 32.0 %) 16.1 [place] % (Auto) (4.8 - 9.0 %) 9.1 H Eos % (Auto) (0.3 - 3.7 %) 5.6 H Baso % (Auto) (0.0 - 2.0 %) 0.5 Neut # (Auto) (2.0 - 7.6 x10 3/uL) 5.35 Lymph # (Auto) (1.0 - 3.8 x10 3/uL) 1.27 [place] # (Auto) (0.1 - 0.8 x10 3/uL) [...] % (Auto) (14.0 - 32.0 %) 15.5 [place] % (Auto) (4.8 - 9.0 %) 8.5 Eos % (Auto) (0.3 - 3.7 %) 5.5 H Baso % (Auto) (0.0 - 2.0 %) 0.4 Neut # (Auto) (2.0 - 7.6 x10 3/uL) 5.94 Lymph # (Auto) (1.0 - 3.8 x10 3/uL) 1.33 [place] # (Auto) (0.1 - 0.8 x10 3/uL) [...] % (Auto) (14.0 - 32.0 %) 16.1 [place] % (Auto) (4.8 - 9.0 %) 9.2 H Eos % (Auto) (0.3 - 3.7 %) 4.7 H Baso % (Auto) (0.0 - 2.0 %) 0.4 Neut # (Auto) (2.0 - 7.6 x10 3/uL) 6.38 Lymph # (Auto) (1.0 - 3.8 x10 3/uL) 1.49 [place] # (Auto) (0.1 - 0.8 x10 3/uL) [...] (Auto) (14.0 - 32.0 %) 13.7 L [place] % (Auto) (4.8 - 9.0 %) 7.2 Eos % (Auto) (0.3 - 3.7 %) 4.8 H Baso % (Auto) (0.0 - 2.0 %) 0.3 Neut # (Auto) (2.0 - 7.6 x10 3/uL) 6.64 Lymph # (Auto) (1.0 - 3.8 x10 3/uL) 1.24 [place] # (Auto) (0.1 - 0.8 x10 3/uL) [...] abdomen. Impression By: [id number] - Roger Parra M.D. ULTRASOUND - DUP VEIN UNI/LTD 09/05 1146 Report Impression - Status: SIGNED Entered: 09/05/2022 1333 IMPRESSION: 1. No evidence of deep vein thrombosis. 2. Complex heterogeneous hypoechoic fluid collection in the left calf region measuring 8.4 x 2.8 x 2.5 cm; there is no internal vascularity or peripheral hyperemia. May represent a hematoma. Impression By: [email or web address] - Mert Ga M.D. RADIOLOGY - XR CHEST 1 V 09/05 1432 Report Impression - Status: SIGNED Entered: 09/05/2022 1515 IMPRESSION: Minimal bibasilar pulmonary opacities Impression By: TipTDO - Bishop Mares M.D. Laboratory [...] COLB STOOL 1.Diabetes mellitus type 2 uncontrolled complications. 2. 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 4. Sepsis 5. Prostate abscess. 6. Anemia Blood sugar 61-162 mg/dL.H/H 8./. Adjust insulin dose. PT and OT. at 1500 RPT #:[id number] END OF REPORT [facility] 2022-09-19 14:14:00 [facility] ([facility]) Rehab Progress Note REPORT#:[id number] REPORT STATUS: Signed DATE:09/19/22 TIME: 1414 PATIENT: KARMA ROWLAND UNIT #: [id number] ROOM/BED: [place] [address] : 61 AGE: 56 SEX: M ATTEND: Mj Vences MD ADM AUTHOR: Mj Vences MD * ALL edits or amendments must be made on the electronic/computer document * Subjective Chief complaint: Rehab follow-up Feels good today BKA site without bleeding Generalized and scrotal edema slowly improving BP improved Eating 75-100% at bedside + BM Denies DICKENS/N/V/D/CP 14 systems reviewed and neg. except that [...] is wearing a nestor-tech orthotic for right knee/BKA protection. Prior to [...] 24 Hrs Magnesium Sulfate (MAGNESIUM SULFATE 2GM/SWFI 50ML) 50 ML ONCE ONE IV ( DC) [...] Exam General appearance: alert, awake, no acute distress Psych: alert, normal affect, oriented x 3 HEENT: anicteric, sclera clear Neck: supple, no JVD Cardiovascular: S1/S2, no murmur Respiratory: aerating well, clear bilaterally Abdomen: bowel sounds present, non-distended, soft, non-tender Skin: no rash, R BKA HEALING. 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 Leroy Significant impairment in self-care, ADLs and functional mobility Impaired mobility and gait Acute postoperative pain right BKA Diabetic polyneuropathy DKA, DM 2, poorly controlled, A1c greater than 14 PAD MRSA bacteremia/sepsis-treated on acute ERIKA Severe hyponatremia-resolved HTN Acute on chronic anemia requiring multiple transfusions, possible GI bleed Left calf hematoma Edema and clinical arthritis left ankle Early decubitus to left heel/DTI dorsal left midfoot Prostatic abscess 08/26: S/p transrectal ultrasound aspiration of abscess and transurethral resection of prostate and unroofing of abscess 09/12: Echo: EF 55-59%, grade 1 diastolic dysfunction 09/02: JIMENA negative for vegetation MRSA OF NARES 09/08:s/p EGD and colonoscopy. EGD showed mild gastritis. Colonoscopy showed rectal polyp that was resected by snare (tubular adenoma)-repeat colonoscopy in 5 years Plan: -PLOF: Independent with transfers and gait -Amputee rehab program -Continue PT and OT -15/12 rehabilitation nursing care. -Case management for safe discharge planning. -Decubitus prevention -Early decubitus to left heel/DTI dorsal left midfoot-zinc oxide to the foot, foam, offloading, podiatry managing -DVT prophylaxis-SCD left leg -Strict fall and safety precautions -Work on bed mobility, transfer training, ADLs, pre-gait and gait exercises -Increase endurance and strength -Monitor pain with therapies -OOB to chair -Monitor p.o. intake and nutrition, albumin 1.3, prealbumin less than 5, dietary consultation, protein supplements to promote healing -Diabetes-A1c 14, tight glycemia control- endocrine on board, insulin adjustments -Endocrinology, ID, podiatry, cardiology, IM consulted -Pain management adjusting pain medications -Anemia, patient required multiple units of PRBCs on acute, FOBT positive -IV Protonix-consult GI-serial H H-no evidence of gross bleeding-discussed with Dr. Trinidad -Constipation-abdominal xqarcdrs-ILY-zftsrd-CW Senokot and MiraLAX, DSP -MRSA OF NARES on Bactroban protocol -LLE edema-venous Doppler with complex heterogeneous hypoechoic fluid collection in the left calf region measuring 8.4, 2.8, 2.5 cm suggestive of hematoma. On low-dose Lasix. Joan wrap LLE -LE edema could be related to hypoalbuminemia leading to third spacing-edema improving -Generalized edema-some shortness of breath and abdominal distention-cardiology gave a dose of IV Lasix-monitor urine output, daily weights-SOB resolved -09/05-venous Doppler of LLE-negative for DVT-Joan wrap dressing and elevation -Anemia-hemoglobin 8.3, 7.7, 8.2, 7.6, 8 transfused 2 units of PRBC on 09/05 -09/08: s/p EGD and colonoscopy. EGD showed mild gastritis. Colonoscopy showed rectal polyp that was resected by snare. Anemia likely secondary to chronic kidney disease. Consult renal. -Pathology of polyp came back as tubular adenoma. recommend repeating colonoscopy in 5 years as per GI -Consider video capsule endoscopy as outpt if evidence of dropping H/H -Renal ultrasound negative -09/19/2022 blood pressure better, sodium 139, potassium 3.8, CO2 22, BUN 72 up from 66, creatinine 2.3 up from 2.2, will hold off diuretics, urine output reported 2 L, magnesium 1.69 we will give magnesium sulfate 2 g IV x1, continue prednisone-as per renal -MRSA bacteremia and prostatic abscess-WBC 13.3-monitor on Merrem and Daptomycin til 09/24 as per ID -Lasix as per nephrology -Completed Solu-Medrol -09/12: Echo-EF 55-60%, indeterminate diastolic function parameters as per cardio -BP continues to be elevated, Hydralazine increased to 75 mg TID, cont Metoprolol to 25 mg BID -BS better but likely to increase with re-initiation of steroids x3 days started by Nephrology for AIN -Endo adjusting insulin -Car transfer training 09/23 -Creatinine continues to improve-discussed with patient and about renal issues are improving -Advance therapies as tolerated-discussed treatment plan with patient and -Right MXM-jaivzgp-cmfdknwt resolved, dressings changed today-no bleeding after heparin [...] DURING STAND PIVOT TRANSFERS TO [place]. PM R Please see team note. Plan [...] reviewed. All questions answered Consultants: cardiology, endocrinology, hospitalist, infectious disease, podiatry Rehab attestation: Face to face exam completed. Treatment plan discussed with patient. Meets continued stay criteria. Agree with interdisciplinary treatment plan. at 1424 RPT #:[id number] END OF REPORT [facility] 2022-09-19 13:22:00 [facility] ([facility]) Hospitalist Progress Note REPORT#:[id number] REPORT STATUS: Signed DATE:09/19/22 TIME: 1322 PATIENT: KARMA ROWLAND UNIT #: [id number] ROOM/BED: [place] [address] : 61 AGE: 56 SEX: M ATTEND: Mj Vences MD ADM AUTHOR: Meera Chavira DO * ALL edits or amendments must be made on the electronic/computer document * Subjective Chief complaint: Edema LLE [...] 24 Hrs Magnesium Sulfate (MAGNESIUM SULFATE 2GM/SWFI 50ML) 50 ML ONCE ONE IV ( DC) [...] Exam General appearance: alert, awake, oriented, no acute distress, pleasant, conversational, mental status normal, no respiratory distress Head/Eyes: atraumatic, normocephalic ENT: moist mucosal membranes Neck: no JVD Cardiovascular: normal heart sounds, regular rate rhythm Respiratory: aerating well, clear to auscultation Abdomen: non-tender, normal bowel sounds Genitourinary: no bladder distention Extremities: edema (1+ pitting edema to thigh), moves all, normal capillary refill Musculoskeletal: normal inspection Neuro/QUANTITATIVE ANALYST: alert, oriented X 3, 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 Considered stroke alert: no Skin: dry, intact Psychiatry: normal affect, normal judgment/insight Results Findings/Data: Laboratory Tests 09/19 09/19 09/19 [...] % (Auto) (14.0 - 32.0 %) 16.5 [place] % (Auto) (4.8 - 9.0 %) 8.4 Eos % (Auto) (0.3 - 3.7 %) 2.4 Baso % (Auto) (0.0 - 2.0 %) 0.2 Neut # (Auto) (2.0 - 7.6 x10 3/uL) 9.50 H Lymph # (Auto) (1.0 - 3.8 x10 3/uL) 2.19 [place] # (Auto) (0.1 - 0.8 x10 3/uL) [...] 0.1 x10 3/uL) 0.00 Diagnosis, Assessment Plan Consultants: cardiology, endocrinology, hospitalist, infectious disease, podiatry Free Text DxA P Notes Free text DxA P notes: Gangrene of right foot s/p Below- knee amputation Prostate abscess MRSA bacteremia Hx of Diabetes, Diabetic neuropathy HTN ERIKA PLANS: Continue with PT/OT per primary Wound care and Abx as per ID Hepain PPX IV iron BP continues to be elevated, Hydralazine increased to 75 mg TID, cont Metoprolol to 25 mg BID BS better but likely to increase with re-initiation of steroids x3 days started by Nephrology for AIN - Endo adjusting insulin pain control Cr at 2.2, Nephrology following, re-started Prednisone 60 mg for 2 days Edema about the same, Lasix as per renal Hgb stabilized. continue to monitor at 1323 RPT #:[id number] END OF REPORT [facility] 2022-09-19 10:38:00 [facility] ([facility]) Cardiology Progress Note REPORT#:[id number] REPORT STATUS: Signed DATE:09/19/22 TIME: 1038 PATIENT: KARMA ROWLAND UNIT #: [id number] ROOM/BED: [place] [address] : 61 AGE: 56 SEX: M ATTEND: Mj Vneces MD ADM AUTHOR: Rohit Benitez LOG ROPER * ALL edits or amendments must be made on the electronic/computer document * Rohit Benitez 09/19/22 1038: Subjective Chief complaint: weakness Free Text Subj Notes Free Text Subj Notes: Patient seen and evaluated. Chart reviewed. No new [...] 24 Hrs Magnesium Sulfate (MAGNESIUM SULFATE 2GM/SWFI 50ML) 50 ML ONCE ONE IV ( DC) [...] regular rate and rhythm, no ectopy, no gallop Respiratory: clear to auscultation, no distress Abdomen: soft, non-tender Lower extremity: LE assessment: edema, normal temperature Neuro/QUANTITATIVE ANALYST: alert, oriented X 3 Considered stroke alert: no Wound/incision: Location: right bka Psychiatry: normal affect, normal judgment/insight, normal mood Results Findings/Data: Laboratory Tests 09/19 [...] % (Auto) (14.0 - 32.0 %) 16.5 [place] % (Auto) (4.8 - 9.0 %) 8.4 Eos % (Auto) (0.3 - 3.7 %) 2.4 Baso % (Auto) (0.0 - 2.0 %) 0.2 Neut # (Auto) (2.0 - 7.6 x10 3/uL) 9.50 H Lymph # (Auto) (1.0 - 3.8 x10 3/uL) 2.19 [place] # (Auto) (0.1 - 0.8 x10 3/uL) [...] L Diagnosis, Assessment Plan Consultants: cardiology, endocrinology, hospitalist, infectious disease, podiatry Free [...] rehab for physical therapy. Known cardiac history of hypertension and hyperlipidemia. Vital signs stable. Echocardiogram with [...] BMP in the morning. Supportive care. Plan of care discussed with [...] Continue hold diuretic for now. Supportive care. Plan of care discussed with patient, RN and Dr. Parham. 09/15: Repeat echocardiogram showed LVEF of 55 to 60%, no regional wall motion abnormalities, left ventricular diastolic function parameters are indeterminate, mildly dilated [...] Dr. Parham. 09/18: Blood pressure remains elevated due [...] volume status. No new cardiac complaint. Continue steroid taper per nephrology. Progressing in therapy. Discharge planning. Supportive care. Plan of care discussed with patient, RN and Dr. Parham. Napoleon Parham 09/20/22 1653: Diagnosis, Assessment Plan Additional comments: Patient was seen and examined at bedside, agree with above assessment and plan as documented by nurse practitioner. Will follow up at 1537 at 4718 RPT #:[id number] END OF REPORT [facility] 2022-09-19 10:32:00 [facility] ([facility]) Infectious Dis. Progress Note REPORT#:[id number] REPORT STATUS: Signed DATE:09/19/22 TIME: 1032 PATIENT: KARMA ROWLAND UNIT #: [id number] ROOM/BED: [place] [address] : 63 AGE: 56 SEX: M ATTEND: Mj Vences MD ADM AUTHOR: Linda Anderson MD * ALL edits or amendments must be made on the electronic/computer document * Subjective HPI: PT is a [...] was transferred to Rehab on 09/02. Patient reports: No: cough, diarrhea, fever, headache, nausea, shortness [...] 2GM/SWFI 50ML) 50 ML ONCE ONE IV ( DC) [...] awake, oriented Head/Eyes: atraumatic, clear cornea, EOMI, normal conjunctiva/sclera, normal eyelids/periorb, normocephalic, PERRL ENT: moist mucosal membranes, normal dentition Neck: full range of motion Cardiovascular: normal heart sounds, regular rate rhythm Respiratory: clear to auscultation, aerating well Abdomen: non-tender, normal bowel sounds, soft Extremities: edema (in left leg and thigh improved), moves all, right BKA Left foot wound +dressing in place Neuro/QUANTITATIVE ANALYST: alert, oriented X 3 Considered stroke alert: [...] % (Auto) (14.0 - 32.0 %) 16.5 [place] % (Auto) (4.8 - 9.0 %) 8.4 Eos % (Auto) (0.3 - 3.7 %) 2.4 Baso % (Auto) (0.0 - 2.0 %) 0.2 Neut # (Auto) (2.0 - 7.6 x10 3/uL) 9.50 H Lymph # (Auto) (1.0 - 3.8 x10 3/uL) 2.19 [place] # (Auto) (0.1 - 0.8 x10 3/uL) [...] % (Auto) (14.0 - 32.0 %) 16.5 [place] % (Auto) (4.8 - 9.0 %) 8.4 Eos % (Auto) (0.3 - 3.7 %) 2.4 Baso % (Auto) (0.0 - 2.0 %) 0.2 Neut # (Auto) (2.0 - 7.6 x10 3/uL) 9.50 H Lymph # (Auto) (1.0 - 3.8 x10 3/uL) 2.19 [place] # (Auto) (0.1 - 0.8 x10 3/uL) [...] % (Auto) (14.0 - 32.0 %) 17.4 [place] % (Auto) (4.8 - 9.0 %) 6.9 Eos % (Auto) (0.3 - 3.7 %) 0.1 L Baso % (Auto) (0.0 - 2.0 %) 0.1 Neut # (Auto) (2.0 - 7.6 x10 3/uL) 7.91 H Lymph # (Auto) (1.0 - 3.8 x10 3/uL) 1.85 [place] # (Auto) (0.1 - 0.8 x10 3/uL) [...] (0.0 - 0.1 x10 3/uL) 0.00 Medication(s) Ordered: Anti-Infective Agents Sig/Jan Start time [...] Sodium 40 MG Q12HR 09/05 09 AC 09/19 IV 10/05 0859 0911 Polyethylene [...] Prophylaxis Lines: PICC Portions of this section were scribed by Jill Quintero on 09/19/22 at 1032 Diagnosis, Assessment Plan Free Text A P: *MRSA bacteremia -Initial blood cultures from 08/18/2022 positive for MRSA in 2 out of 2 sets. -Repeat blood cultures 08/21/2022 are already positive for MRSA in 2 out of 2 sets, suggesting persistent high-grade bacteremia. -TTE 08/18/2022 negative for any obvious vegetations. -08/28 neg -JIMENA 09/02 neg *Prostatic abscess -s/p transrectal aspiration and unroofing on 08/26 -cx MRSA, citrobacter (r-cefazolin) Enterococcus raffinosus (S-amp,pcn, vancomycin), bacteriodes *ERIKA -nephrology following; worsening; adjust abx (changed vancomycin and cefepime to merrem and daptomycin ) *Hyponatremia *Diabetic neuropathy *Diabetes mellitus type 2 *Hypertension *anemia 09/19 no changes overnight on Merrem and Dapotomycin til 09/24 creat improving swelling improved Consultants: cardiology, endocrinology, hospitalist, infectious disease, podiatry Portions of this section were scribed by Jill Quintero on 09/19/22 at 1554 at 2342 RPT #:[id number] END OF REPORT [facility] 2022-09-19 09:11:00 [facility]) Gastroenterology Progress Note REPORT#:[id number] REPORT STATUS: Signed DATE:09/19/22 TIME: 910 PATIENT: KARMA ROWLAND UNIT #: [id number] ROOM/BED: [place] [address] : 63 AGE: 56 SEX: M ATTEND: Mj Vences MD ADM AUTHOR: Kassie Avitia MD * ALL edits or amendments must be made on the electronic/computer document * Subjective HPI: Patient is a 56-year-old male with history of diabetes mellitus type 2 and hypertension who was initially admitted for altered mental status and right- sided foot infection. [...] gym. Tolerating diet. Normal BMs. Stable H/H 09/14-Sitting up in wheelchair, family at bedside. Denies [...] kidney disease and mild oozing from his stump. Can consider video capsule endoscopy as outpt if evidence of dropping H/H H/H remains stable Consider reducing frequency of H/H check Will follow along Consultants: cardiology, endocrinology, hospitalist, infectious disease, podiatry at 0912 RPT #:[id number] END OF REPORT [facility] 2022-09-19 07:38:00 [facility] ([facility]) Nephrology Progress Note REPORT#:[id number] REPORT STATUS: Signed DATE:09/19/22 TIME: 0738 PATIENT: KARMA ROWLAND UNIT #: [id number] ROOM/BED: [place] [address] : 63 AGE: 56 SEX: M ATTEND: Mj Vences MD ADM AUTHOR: Barrera Ramírez MD * ALL edits or amendments must be made on the electronic/computer document * Subjective Chief complaint: Infected foot HPI: Patient seen and evaluated on 09/09/2022, note started, [...] change from initial, feels okay. Review of Systems Constitutional: Reports: fatigue. Denies: chills, fever. Skin: Reports: swelling. Denies: abrasion, bruising, rash. Allergy/Immun: Denies: hives, itching. Eyes: Denies: [...] no edema Musculoskeletal: no CVA tenderness, no tenderness Neuro/QUANTITATIVE ANALYST: alert, 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 Considered stroke alert: no [...] (14.0 - 32.0 %) 17.4 10.2 L [place] % (Auto) (4.8 - 9.0 %) 6.9 2.9 L Eos % (Auto) (0.3 - 3.7 %) 0.1 L 0.0 L Baso % (Auto) (0.0 - 2.0 %) 0.1 0.1 Neut # (Auto) (2.0 - 7.6 x10 3/uL) 7.91 H 7.58 Lymph # (Auto) (1.0 - 3.8 x10 3/uL) 1.85 0.91 L [place] # (Auto) (0.1 - 0.8 x10 3/uL) [...] and laboratories reviewed. Diabetes mellitus: Insulin: Monitor blood sugar closely and adjust medications as needed, followed by endocrinology. Hypertension: Blood pressure is not well controlled, increase Coreg to 12.5 mg p.o. twice daily: Monitor blood pressure closely and adjust medications as needed Right foot gangrene/infection status post right BKA Anemia: Status post EGD and colonoscopy which were negative for active GI bleeding, patient had work-up in July 2022 which showed very high B12, normal folate, very low iron saturation but very high ferritin which was likely related to his infection, likely patient is very iron deficient, will repeat lab and give IV iron if needed. We will check serum immunofixation. Acute kidney injury: We will check renal bladder ultrasound, check postvoid residual, check urine protein creatinine ratio Hypomagnesemia: We will supplement 09/10/2022 laboratory this morning showed sodium 135, potassium 4.2, CO2 21, BUN 25, creatinine 1.9 continues to worsen, etiology unclear, however his development some eosinophilia not sure if he is developing AIN, suggest changing cefepime to a different class of antibiotic if possible, will check renal bladder ultrasound 09/11/2022 laboratory this morning showed sodium 134, potassium 4.3, CO2 22, BUN 26, creatinine 2 up from 1.9, hopefully creatinine is plateauing, renal ultrasound negative. 09/12/2022 laboratory this morning showed sodium 134, potassium 4.2, CO2 20, BUN 31, creatinine 2.4 continues to worsen, discussed with ID, AIN is probably the etiology of the unexplained deterioration of his renal function, antibiotics to be adjusted by infectious disease, will give Solu-Medrol 125 mg IV daily for 3 days. Significant lower extremity edema, will start Lasix 20 mg p.o. twice daily. 09.13.23: pt was seen and examined. Very thirsty. serum creatinine is worsening today. Vancomycin was stopped yesterday and Solu medrol was started. Mild hypovolemic hyponatremia. Will DC lasix and monitor his renal functions. BP is well controlled. 23: pt was seen and examined. Feels better but still thirsty. I stopped his lasix. will start NS at 75 cc for [...] plan for kidney biopsy 09/16/2022 laboratory this morning showed sodium 135, potassium 4.5, CO2 20, BUN 60, creatinine 2.7, better down from 2.9, hemoglobin 7.6, platelet 360, blood count 9.5, will give prednisone 80 mg p.o. today, blood pressure is elevated, will add hydralazine 25 mg p.o. 3 times daily, scrotal and LE swelling will give Lasix 40 mg IV x 3 09/17/2022 blood pressure still elevated, will increase hydralazine to 50 mg p.o. 3 times daily, will give 80 mg of prednisone today, urine output with Lasix 4125 , laboratory this morning showed sodium 136, potassium 4.5, CO2 21, BUN 66, creatinine 2.4 down from 2.7, will give 3 more doses of IV Lasix 40 mg every 8 hours 09/18/2022 laboratory this morning showed sodium 138, potassium 4.1, CO2 21, BUN 66, creatinine 2.2 continues to improve, urine output 2.7 L, hemoglobin 7.6, platelet 341, blood count 10.6, will give Lasix 40 mg IV every 8 for 3 doses, start prednisone 60 mg p.o. daily for 3 days, increase hydralazine to 75 mg p.o. 3 times daily. 09/19/2022 blood pressure better, sodium 139, potassium 3.8, CO2 22, BUN 72 up from 66, creatinine 2.3 up from 2.2, will hold off diuretics, urine output reported 2 L, magnesium 1.69 we will give magnesium sulfate 2 g IV x1, continue prednisone. Consultants: cardiology, endocrinology, hospitalist, infectious disease, podiatry at 0920 [facility] #:[id number] END OF REPORT [facility] 2022-09-18 17:41:00 [facility] Endocrinology Progress Note REPORT#:[id number] REPORT STATUS: Signed DATE:09/18/22 TIME: 1740 PATIENT: KARMA ROWLAND UNIT #: [id number] ROOM/BED: [place] [address] : 61 AGE: 56 SEX: M ATTEND: Mj Vences MD ADM AUTHOR: Braxton Chapin MD * ALL edits or amendments must be made on the electronic/computer document * Subjective Patient reports: no complaints [...] % (Auto) (14.0 - 32.0 %) 17.4 [place] % (Auto) (4.8 - 9.0 %) 6.9 Eos % (Auto) (0.3 - 3.7 %) 0.1 L Baso % (Auto) (0.0 - 2.0 %) 0.1 Neut # (Auto) (2.0 - 7.6 x10 3/uL) 7.91 H Lymph # (Auto) (1.0 - 3.8 x10 3/uL) 1.85 [place] # (Auto) (0.1 - 0.8 x10 3/uL) [...] (Auto) (14.0 - 32.0 %) 10.2 L [place] % (Auto) (4.8 - 9.0 %) 2.9 L Eos % (Auto) (0.3 - 3.7 %) 0.0 L Baso % (Auto) (0.0 - 2.0 %) 0.1 Neut # (Auto) (2.0 - 7.6 x10 3/uL) 7.58 Lymph # (Auto) (1.0 - 3.8 x10 3/uL) 0.91 L [place] # (Auto) (0.1 - 0.8 x10 3/uL) [...] % (Auto) (14.0 - 32.0 %) 18.6 [place] % (Auto) (4.8 - 9.0 %) 6.7 Eos % (Auto) (0.3 - 3.7 %) 0.2 L Baso % (Auto) (0.0 - 2.0 %) 0.1 Neut # (Auto) (2.0 - 7.6 x10 3/uL) 6.99 Lymph # (Auto) (1.0 - 3.8 x10 3/uL) 1.77 [place] # (Auto) (0.1 - 0.8 x10 3/uL) [...] pH (5.0 - 7.0) 5.0 Ur Specific [place] (1.005 - 1.030) 1.013 Urine Protein (NEGATIVE) [...] (Auto) (14.0 - 32.0 %) 11.3 L [place] % (Auto) (4.8 - 9.0 %) 3.2 L Eos % (Auto) (0.3 - 3.7 %) 0.0 L Baso % (Auto) (0.0 - 2.0 %) 0.1 Neut # (Auto) (2.0 - 7.6 x10 3/uL) 7.35 Lymph # (Auto) (1.0 - 3.8 x10 3/uL) 0.98 L [place] # (Auto) (0.1 - 0.8 x10 3/uL) [...] (Auto) (14.0 - 32.0 %) 13.9 L [place] % (Auto) (4.8 - 9.0 %) 5.1 Eos % (Auto) (0.3 - 3.7 %) 0.0 L Baso % (Auto) (0.0 - 2.0 %) 0.1 Neut # (Auto) (2.0 - 7.6 x10 3/uL) 7.58 Lymph # (Auto) (1.0 - 3.8 x10 3/uL) 1.31 [place] # (Auto) (0.1 - 0.8 x10 3/uL) [...] H Laboratory Tests: 09/13 09/13 09/13 09/12 8318 1985 4730 2016 Chemistry Sodium (134 - 147 mEq/L) [...] (Auto) (14.0 - 32.0 %) 10.4 L [place] % (Auto) (4.8 - 9.0 %) 3.5 L Eos % (Auto) (0.3 - 3.7 %) 0.0 L Baso % (Auto) (0.0 - 2.0 %) 0.1 Neut # (Auto) (2.0 - 7.6 x10 3/uL) 8.34 H Lymph # (Auto) (1.0 - 3.8 x10 3/uL) 1.02 [place] # (Auto) (0.1 - 0.8 x10 3/uL) [...] % (Auto) (14.0 - 32.0 %) 15.0 [place] % (Auto) (4.8 - 9.0 %) 7.9 Eos % (Auto) (0.3 - 3.7 %) 3.8 H Baso % (Auto) (0.0 - 2.0 %) 0.3 Neut # (Auto) (2.0 - 7.6 x10 3/uL) 6.34 Lymph # (Auto) (1.0 - 3.8 x10 3/uL) 1.31 [place] # (Auto) (0.1 - 0.8 x10 3/uL) [...] % (Auto) (14.0 - 32.0 %) 16.1 [place] % (Auto) (4.8 - 9.0 %) 9.1 H Eos % (Auto) (0.3 - 3.7 %) 5.6 H Baso % (Auto) (0.0 - 2.0 %) 0.5 Neut # (Auto) (2.0 - 7.6 x10 3/uL) 5.35 Lymph # (Auto) (1.0 - 3.8 x10 3/uL) 1.27 [place] # (Auto) (0.1 - 0.8 x10 3/uL) [...] % (Auto) (14.0 - 32.0 %) 15.5 [place] % (Auto) (4.8 - 9.0 %) 8.5 Eos % (Auto) (0.3 - 3.7 %) 5.5 H Baso % (Auto) (0.0 - 2.0 %) 0.4 Neut # (Auto) (2.0 - 7.6 x10 3/uL) 5.94 Lymph # (Auto) (1.0 - 3.8 x10 3/uL) 1.33 [place] # (Auto) (0.1 - 0.8 x10 3/uL) [...] % (Auto) (14.0 - 32.0 %) 16.1 [place] % (Auto) (4.8 - 9.0 %) 9.2 H Eos % (Auto) (0.3 - 3.7 %) 4.7 H Baso % (Auto) (0.0 - 2.0 %) 0.4 Neut # (Auto) (2.0 - 7.6 x10 3/uL) 6.38 Lymph # (Auto) (1.0 - 3.8 x10 3/uL) 1.49 [place] # (Auto) (0.1 - 0.8 x10 3/uL) [...] (Auto) (14.0 - 32.0 %) 13.7 L [place] % (Auto) (4.8 - 9.0 %) 7.2 Eos % (Auto) (0.3 - 3.7 %) 4.8 H Baso % (Auto) (0.0 - 2.0 %) 0.3 Neut # (Auto) (2.0 - 7.6 x10 3/uL) 6.64 Lymph # (Auto) (1.0 - 3.8 x10 3/uL) 1.24 [place] # (Auto) (0.1 - 0.8 x10 3/uL) [...] abdomen. Impression By: [id number] - Roger Parra M.D. ULTRASOUND - [facility]/LTD 09/05 1146 Report Impression - Status: SIGNED Entered: 09/05/2022 1333 IMPRESSION: 1. No evidence of deep vein thrombosis. 2. Complex heterogeneous hypoechoic fluid collection in the left calf region measuring 8.4 x 2.8 x 2.5 cm; there is no internal vascularity or peripheral hyperemia. May represent a hematoma. Impression By: [id number] - Mert Ga M.D. RADIOLOGY - XR CHEST 1 V 09/05 1432 Report Impression - Status: SIGNED Entered: 09/05/2022 1515 IMPRESSION: Minimal bibasilar pulmonary opacities Impression By: TipTDO - Bishop Mares M.D. Laboratory [...] COLB STOOL 1.Diabetes mellitus type 2 uncontrolled complications. 2. 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 4. Sepsis 5. Prostate abscess. 6. Anemia Blood sugar 201-80 mg/dL.H/H 8.11/17. Adjust insulin dose. PT and OT. at 1742 RPT #:[id number] END OF REPORT [facility] 2022-09-18 17:39:00 [facility]) Podiatry Progress Note REPORT#:[id number] REPORT STATUS: Signed DATE:09/18/22 TIME: 1739 PATIENT: KARMA ROWLAND UNIT #: [id number] ROOM/BED: [place] [address] : 61 AGE: 56 SEX: M ATTEND: Mj Vences MD ADM AUTHOR: Liam Jeffrey DPM * ALL edits or amendments must be made on the electronic/computer document * Subjective Chief complaint: left heel [...] imported from the dietitian's assessment. BMI Calculated: 27.1 Nutrition related diagnosis: Nutrition diagnosis details: Nutrition problem: Altered nutrition labs Nutrition etiology: DM Nutrition signs and symptoms: HYPER/HYPOGLYCEMIA, A1C >14 Nutrition prescription: CONTINUE RENAL DM [...] % (Auto) (14.0 - 32.0 %) 17.4 [place] % (Auto) (4.8 - 9.0 %) 6.9 Eos % (Auto) (0.3 - 3.7 %) 0.1 L Baso % (Auto) (0.0 - 2.0 %) 0.1 Neut # (Auto) (2.0 - 7.6 x10 3/uL) 7.91 H Lymph # (Auto) (1.0 - 3.8 x10 3/uL) 1.85 [place] # (Auto) (0.1 - 0.8 x10 3/uL) [...] 3/uL) 0.00 Diagnosis, Assessment Plan Free Text A P: DM with neuropathy early decub ulcer left heel OA/edema left ankle early ulcer/DTI dorsal left midfoot zinc oxide to foot and heel foam to heel on IV abx on PO gabapentin offloading boot joan wraps to ankle, only when OOB with therapy. zinc oxide interchange with bactroban to dorsal left foot Consultants: cardiology, endocrinology, hospitalist, infectious disease, podiatry at 1741 RPT #:[id number] END OF REPORT [facility] 2022-09-18 15:52:00 [facility] Gastroenterology Progress Note REPORT#:[id number] REPORT STATUS: Signed DATE:09/18/22 TIME: 1552 PATIENT: KARMA ROWLAND UNIT #: [id number] ROOM/BED: [place] [address] : 61 AGE: 56 SEX: M ATTEND: Mj Vences MD ADM AUTHOR: Kassie Avitia MD * ALL edits or amendments must be made on the electronic/computer document * Subjective HPI: Patient is a 56-year-old male with history of diabetes mellitus type 2 and hypertension who was initially admitted for altered mental status and right- sided foot infection. [...] gym. Tolerating diet. Normal BMs. Stable H/H 09/14-Sitting up in wheelchair, family at bedside. Denies [...] years Anemia likely secondary to chronic kidney disease. Can consider video capsule endoscopy as outpt if evidence of dropping H/H H/H remains stable Consider not checking H H daily Will follow along Consultants: cardiology, endocrinology, hospitalist, infectious disease, podiatry at 1553 RPT #:[id number] END OF REPORT [facility] 2022-09-18 15:49:00 [facility] ([facility]) Pain Management Progress Note REPORT#:[id number] REPORT STATUS: Signed DATE:09/18/22 TIME: 154 PATIENT: KARMA ROWLAND UNIT #: [id number] ROOM/BED: [place] [address] : 61 AGE: 56 SEX: M ATTEND: Mj Vences MD ADM AUTHOR: Ben Klein * ALL edits or amendments must be made on the electronic/computer document * Ben Klein 09/18/22 1549: Subjective [...] fever/chills, chest pain, orthopnea, nausea/vomiting, pruritus, or hallucinations. 14 point ROS undertaken unremarkable except as noted Objective General VS/I O: Vital Signs Date [...] Exam General appearance: alert, awake, oriented, no acute distress Head/eyes: atraumatic, EOMI, normocephalic, normal conjunctiva/sclera, PERRLA ENT: normal pharynx, moist mucosal membranes Neck: full range of motion, no lymphadenopathy, supple/no meningismus Cardiovascular: regular rate rhythm Respiratory: clear to auscultation, no distress Abdomen: soft, non-tender, no distention, active bowel sounds in all quarants. Abdomen quadrants LLQ normal bowel sounds, LUQ normal bowel sounds, RLQ normal bowel sounds, RUQ normal bowel sounds Extremities: moves all, no edema, pedal pulses, right BKA Neuro/QUANTITATIVE ANALYST: 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, no sensory deficits, CNII-XII grossly intact Considered stroke alert: no [...] % (Auto) (14.0 - 32.0 %) 17.4 [place] % (Auto) (4.8 - 9.0 %) 6.9 Eos % (Auto) (0.3 - 3.7 %) 0.1 L Baso % (Auto) (0.0 - 2.0 %) 0.1 Neut # (Auto) (2.0 - 7.6 x10 3/uL) 7.91 H Lymph # (Auto) (1.0 - 3.8 x10 3/uL) 1.85 [place] # (Auto) (0.1 - 0.8 x10 3/uL) [...] foot foot and ankle gangrene, diabetes, hypertension, hyperlipidemia Past Surgical History: TURP, right BKA Family History: Noncontributory Social History: Denies tobacco, alcohol, or drug use Allergies: NKDA Recent prostate abscess -Status post TURP with unroofing of abscess -IV antibiotics with vancomycin until 09-24-2022 Acute postoperative pain, right foot and ankle gangrene, requiring BKA -Patient is at risk for further amputations or loss of limb due to comorbid conditions -Status post right BKA 08/28/2022 -DC [place] 10/325 1 tablet p.o. every 4 hours as needed pain scale 4 10 -DC Dilaudid 0.5 mg IV daily as needed pain scale 7 10, second line therapy () -Tylenol 650 mg p.o. every 6 hours as needed pain scale 1 3 -Percocet 10/325mg every 4 hours as needed, pain scale 4-10 (09/10) -Lidoderm patch to left ankle daily -IV antibiotics with vancomycin until 09-24-2022 -Local wound care -manageable Diabetic peripheral neuropathy -amitriptyline 25mg PO QHS -Gabapentin 100mg every 8 hours (09/10) -manageable Hypertension -We will monitor hypertension and tachycardia due to pain, and hypotension as well as bradycardia secondary over sedation with narcotics -Hydralazine as needed Elevated LFTs -08/20/22-AST 51, ALT 22 -09/03/2022-AST 15, ALT 7 -Patient will require close monitoring since he is using narcotics with Tylenol Impaired functional mobility, balance, gait, and endurance -PT/OT Antalgic/Impaired gait -PT/OT -Improve strength, endurance, self-care, gait, balance, ADLs -Fall precautions per unit protocol -Pain medications as outlined above Constipation -We will monitor while utilizing opioid narcotic medications. -Adequate fluid intake also discussed. -Colace 100 mg p.o. twice daily as needed -Dulcolax 10 mg rectally daily as needed -Senna lax 8.6mg daily -Miralax 17gm daily -manageable Disposition: percocet 10/325mg q6h prn pain , gabapentin 100mg q8h sent to [facility]/ pharmacy #[id number] [address] [address] ([address] Phone: Patient has failed conservative medical therapy. Patient will require monitoring while utilize narcotic medications [...] whom agrees. Thank you for the consultation. [place] ORCHESTRA LEADER: -database searched, no information found Kingsley Ng 10/07/22 0726: Attestations Physician Attestation Agree w/findings plan: The patient was seen and examined by Ben Klein. I personally developed the care plan, which was continued by the mid-level provider. I was immediately available. at 1553 at 0759 RPT #:[id number] END OF REPORT [facility] 2022-09-18 13:35:00 [facility] ([facility] Hospitalist Progress Note REPORT#:[id number] REPORT STATUS: Signed DATE:09/18/22 TIME: 1335 PATIENT: KARMA ROWLAND UNIT #: [id number] ROOM/BED: [place] [address] : 61 AGE: 56 SEX: M ATTEND: Mj Vences MD ADM AUTHOR: Meera Chavira DO * ALL edits or amendments must be made on the electronic/computer document * Subjective Chief complaint: Edema LLE [...] Exam General appearance: alert, awake, oriented, no acute distress, pleasant, conversational, mental status normal, no respiratory distress Head/Eyes: atraumatic, normocephalic ENT: moist mucosal membranes Neck: no JVD Cardiovascular: normal heart sounds, regular rate rhythm Respiratory: aerating well, clear to auscultation Abdomen: non-tender, normal bowel sounds Genitourinary: no bladder distention Extremities: edema (1+ pitting edema to thigh), moves all, normal capillary refill Musculoskeletal: normal inspection Neuro/QUANTITATIVE ANALYST: alert, oriented X 3, 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 Considered stroke alert: no Skin: dry, intact Psychiatry: normal affect, normal judgment/insight Results Findings/Data: Laboratory Tests 09/18 09/18 09/18 [...] % (Auto) (14.0 - 32.0 %) 17.4 [place] % (Auto) (4.8 - 9.0 %) 6.9 Eos % (Auto) (0.3 - 3.7 %) 0.1 L Baso % (Auto) (0.0 - 2.0 %) 0.1 Neut # (Auto) (2.0 - 7.6 x10 3/uL) 7.91 H Lymph # (Auto) (1.0 - 3.8 x10 3/uL) 1.85 [place] # (Auto) (0.1 - 0.8 x10 3/uL) [...] 0.1 x10 3/uL) 0.00 Diagnosis, Assessment Plan Consultants: cardiology, endocrinology, hospitalist, infectious disease, podiatry Free Text DxA P Notes Free text DxA P notes: Gangrene of right foot s/p Below- knee amputation Prostate abscess MRSA bacteremia Hx of Diabetes, Diabetic neuropathy HTN ERIKA PLANS: Continue with PT/OT per primary Wound care and Abx as per ID Hepain PPX IV iron BP continues to be elevated, Hydralazine increased to 75 mg TID, cont Metoprolol to 25 mg BID BS better but likely to increase with re-initiation of steroids x3 days started by Nephrology for AIN - Endo adjusting insulin pain control Cr at 2.2, Nephrology following, re-started Prednisone 60 mg for 3 days Lasix x 3 more doses for edema Hgb stabilized. continue to monitor at 1338 RPT #:[id number] END OF REPORT [facility] 2022-09-18 11:41:00 [facility] ([facility]) Rehab Progress Note REPORT#:[id number] REPORT STATUS: Signed DATE:09/18/22 TIME: 1141 PATIENT: KARMA ROWLAND UNIT #: [id number] ROOM/BED: [place] [address] : 61 AGE: 56 SEX: M ATTEND: Mj Vences MD ADM AUTHOR: Mj Vences MD * ALL edits or amendments must be made on the electronic/computer document * Subjective Chief complaint: Rehab follow-up Feels good today BKA site with bleeding Edema slowly improving Slightly elevated blood pressure Eating 75-100% at bedside + BM Denies DICKENS/N/V/D/CP 14 systems reviewed and neg. except that [...] is wearing a nestor-tech orthotic for right knee/BKA protection. Prior to [...] Exam General appearance: alert, awake, no acute distress Psych: alert, normal affect, oriented x 3 HEENT: anicteric, sclera clear Neck: supple, no JVD Cardiovascular: S1/S2, no murmur Respiratory: aerating well, clear bilaterally Abdomen: bowel sounds present, non-distended, soft, non-tender Skin: no rash, R BKA HEALING. L ankle/foot wrapped with kerlix Musculoskeletal - general: Musculoskeletal - general: swelling (LLE, calve NT, homans neg), BUE 5/5, LLE 4/5, R hip 3- Neuro/QUANTITATIVE ANALYST: alert, oriented X 3, CNII-XII intact Results [...] % (Auto) (14.0 - 32.0 %) 17.4 [place] % (Auto) (4.8 - 9.0 %) 6.9 Eos % (Auto) (0.3 - 3.7 %) 0.1 L Baso % (Auto) (0.0 - 2.0 %) 0.1 Neut # (Auto) (2.0 - 7.6 x10 3/uL) 7.91 H Lymph # (Auto) (1.0 - 3.8 x10 3/uL) 1.85 [place] # (Auto) (0.1 - 0.8 x10 3/uL) [...] Mildly improved left retrocardiac opacities. Impression By: TipSWDaniel - Abel Browne M.D. 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 Leroy Significant impairment in self-care, ADLs and functional mobility Impaired mobility and gait Acute postoperative pain right BKA Diabetic polyneuropathy DKA, DM 2, poorly controlled, A1c greater than 14 PAD MRSA bacteremia/sepsis-treated on acute ERIKA Severe hyponatremia-resolved HTN Acute on chronic anemia requiring multiple transfusions, possible GI bleed Left calf hematoma Edema and clinical arthritis left ankle Early decubitus to left heel/DTI dorsal left midfoot Prostatic abscess 08/26: S/p transrectal ultrasound aspiration of abscess and transurethral resection of prostate and unroofing of abscess 09/12: Echo: EF 55-59%, grade 1 diastolic dysfunction 09/02: JIMENA negative for vegetation MRSA OF NARES 09/08:s/p EGD and colonoscopy. EGD showed mild gastritis. Colonoscopy showed rectal polyp that was resected by snare (tubular adenoma)-repeat colonoscopy in 5 years Plan: -PLOF: Independent with transfers and gait -Amputee rehab program -Continue PT and OT -15/12 rehabilitation nursing care. -Case management for safe discharge planning. -Decubitus prevention -Early decubitus to left heel/DTI dorsal left midfoot-zinc oxide to the foot, foam, offloading, podiatry managing -DVT prophylaxis-subcutaneous heparin-heparin stopped due to bleeding at the BKA site-SCD to left leg -Strict fall and safety precautions -Work on bed mobility, transfer training, ADLs, pre-gait and gait exercises -Increase endurance and strength -Monitor pain with therapies -OOB to chair -Monitor p.o. intake and nutrition, albumin 1.3, prealbumin less than 5, dietary consultation, protein supplements to promote healing -Diabetes-A1c 14, tight glycemia control- endocrine on board, insulin adjustments -Endocrinology, ID, podiatry, cardiology, IM consulted -Pain management adjusting pain medications -Anemia, patient required multiple units of PRBCs on acute, FOBT positive -IV Protonix-consult GI-serial H H-no evidence of gross bleeding-discussed with Dr. Trinidad -Constipation-abdominal jsoynvbk-OIC-bcvgkz-CW Senokot and MiraLAX, DSP -MRSA OF [place]AR[place] on Bactroban protocol -LLE edema-venous Doppler with complex heterogeneous hypoechoic fluid collection in the left calf region measuring 8.4, 2.8, 2.5 cm suggestive of hematoma. On low-dose Lasix. Joan wrap LLE -LE edema could be related to hypoalbuminemia leading to third spacing-edema improving -Generalized edema-some shortness of breath and abdominal distention-cardiology gave a dose of IV Lasix-monitor urine output, daily weights-SOB resolved -09/05-venous Doppler of LLE-negative for DVT-Joan wrap dressing and elevation -Anemia-hemoglobin 8.3, 7.7, 8.2, 7.6 transfused 2 units of PRBC on 09/05 -09/08: s/p EGD and colonoscopy. EGD showed mild gastritis. Colonoscopy showed rectal polyp that was resected by snare. Anemia likely secondary to chronic kidney disease. Consult renal. -Pathology of polyp came back as tubular adenoma. recommend repeating colonoscopy in 5 years as per GI -Consider video capsule endoscopy as outpt if evidence of dropping H/H -Renal ultrasound negative -09/18/2022 laboratory this morning showed sodium 138, potassium [...] nephrology -Completed Solu-Medrol -Noted LLE swelling (not new) and low albumin. may benefit from albumin infusion + Lasix -CXR-worsening opacities in the right mid and lower lung field. Improved left retrocardiac opacities -BNP 297 -09/12: Echo-EF 55-60%, indeterminate diastolic function parameters as per cardio -Blood [...] renal issues are improving -Advance therapies as tolerated-discussed treatment plan with patient and -Patient progressing towards all goals and continues to work on upper and lower extremity strengthening, balance and family training. Therapist working with nurse to monitor drainage from BKA and continue wound care. -Right GFQ-mwrsdgl-fwuclsfl resolved, dressings changed today-Fresh blood, no odor-no signs of infection-[place] intact-DC heparin subcu monitor-continue NESTOR- TECH-if bleeding does not improve will get culture [...] Complete Consultants: cardiology, endocrinology, hospitalist, infectious disease, podiatry Rehab attestation: Face to face exam completed. Treatment plan discussed with patient. Meets continued stay criteria. Agree with interdisciplinary treatment plan. at 1521 RPT #:[id number] END OF REPORT [facility] 2022-09-18 10:45:00 [facility] ([facility] Cardiology Progress Note REPORT#:[id number] REPORT STATUS: Signed DATE:09/18/22 TIME: 1045 PATIENT: KARMA ROWLAND UNIT #: [id number] ROOM/BED: [place] [address] : 63 AGE: 56 SEX: M ATTEND: Mj Vences MD ADM AUTHOR: Rohit Benitez LOG ROPER * ALL edits or amendments must be made on the electronic/computer document * Rohit Benitez 09/18/22 1045: Subjective Chief complaint: weakness Free Text Subj Notes Free Text Subj Notes: Patient seen and evaluated. Doing well, denies chest [...] regular rate and rhythm, no ectopy, no gallop Respiratory: clear to auscultation, no distress Abdomen: soft, non-tender Lower extremity: LE assessment: edema, normal temperature Neuro/QUANTITATIVE ANALYST: alert, oriented X 3 Considered stroke alert: no Wound/incision: Location: right bka Psychiatry: normal affect, normal judgment/insight, normal mood Results Findings/Data: Laboratory Tests 09/18 [...] % (Auto) (14.0 - 32.0 %) 17.4 [place] % (Auto) (4.8 - 9.0 %) 6.9 Eos % (Auto) (0.3 - 3.7 %) 0.1 L Baso % (Auto) (0.0 - 2.0 %) 0.1 Neut # (Auto) (2.0 - 7.6 x10 3/uL) 7.91 H Lymph # (Auto) (1.0 - 3.8 x10 3/uL) 1.85 [place] # (Auto) (0.1 - 0.8 x10 3/uL) [...] 1.83 Diagnosis, Assessment Plan Consultants: cardiology, endocrinology, hospitalist, infectious disease, podiatry Free [...] rehab for physical therapy. Known cardiac history of hypertension and hyperlipidemia. Vital signs stable. Echocardiogram with [...] BMP in the morning. Supportive care. Plan of care discussed with [...] Continue hold diuretic for now. Supportive care. Plan of care discussed with patient, RN and Dr. Parham. 09/15: Repeat echocardiogram showed LVEF of 55 to 60%, no regional wall motion abnormalities, left ventricular diastolic function parameters are indeterminate, mildly dilated [...] Dr. Parham. 09/18: Blood pressure remains elevated due to steroid therapy. Continue monitor blood pressure trend, hydralazine increased to 75 mg 3 times daily. Responding to diuretic regimen with Lasix, good urine output. Creatinine improving, 2.2 today. Continue to monitor fluid volume status. Continue physical therapy. Supportive care. Plan of care discussed with patient, RN and Dr. Parham. Napoleon Parham 09/19/22 0915: Diagnosis, Assessment Plan Additional comments: Patient was seen and examined at bedside, agree with above assessment and plan as documented by nurse practitioner. Will follow. at 1946 at 0916 RPT #:[id number] END OF REPORT [facility] 2022-09-18 10:37:00 [facility]) Infectious Dis. Progress Note REPORT#:[id number] REPORT STATUS: Signed DATE:09/18/22 TIME: 1037 PATIENT: KARMA ROWLAND UNIT #: [id number] ROOM/BED: [place] [address] : 63 AGE: 56 SEX: M ATTEND: Mj Vences MD ADM AUTHOR: Linda Anderson MD * ALL edits or amendments must be made on the electronic/computer document * Subjective HPI: PT is a [...] was transferred to Rehab on 09/02. Patient reports: No: cough, diarrhea, fever, headache, nausea, vomiting. Comments: Pt states the swelling in his [...] awake, oriented Head/Eyes: atraumatic, clear cornea, EOMI, normal conjunctiva/sclera, normal eyelids/periorb, normocephalic, PERRL ENT: moist mucosal membranes, normal dentition Neck: full range of motion Cardiovascular: normal heart sounds, regular rate rhythm Respiratory: clear to auscultation, aerating well Abdomen: non-tender, normal bowel sounds, soft Extremities: edema (in left leg and thigh improved), moves all, right BKA Left foot wound +dressing in place Neuro/QUANTITATIVE ANALYST: alert, oriented X 3 Considered stroke alert: [...] % (Auto) (14.0 - 32.0 %) 17.4 [place] % (Auto) (4.8 - 9.0 %) 6.9 Eos % (Auto) (0.3 - 3.7 %) 0.1 L Baso % (Auto) (0.0 - 2.0 %) 0.1 Neut # (Auto) (2.0 - 7.6 x10 3/uL) 7.91 H Lymph # (Auto) (1.0 - 3.8 x10 3/uL) 1.85 [place] # (Auto) (0.1 - 0.8 x10 3/uL) [...] 09/18 09/18 09/18 09/17 0906 0540 0505 1904 Chemistry Sodium (134 [...] % (Auto) (14.0 - 32.0 %) 17.4 [place] % (Auto) (4.8 - 9.0 %) 6.9 Eos % (Auto) (0.3 - 3.7 %) 0.1 L Baso % (Auto) (0.0 - 2.0 %) 0.1 Neut # (Auto) (2.0 - 7.6 x10 3/uL) 7.91 H Lymph # (Auto) (1.0 - 3.8 x10 3/uL) 1.85 [place] # (Auto) (0.1 - 0.8 x10 3/uL) [...] (Auto) (14.0 - 32.0 %) 10.2 L [place] % (Auto) (4.8 - 9.0 %) 2.9 L Eos % (Auto) (0.3 - 3.7 %) 0.0 L Baso % (Auto) (0.0 - 2.0 %) 0.1 Neut # (Auto) (2.0 - 7.6 x10 3/uL) 7.58 Lymph # (Auto) (1.0 - 3.8 x10 3/uL) 0.91 L [place] # (Auto) (0.1 - 0.8 x10 3/uL) [...] Q12HR 09/15 2100 AC 09/18 SUBQ 10/15 2059 0934 Cardiovascular Drugs [...] 09/04 2100 AC 09/17 PO 10/04 205 210 Acetaminophen 650 MG Q6H PRN PRN 09/01 1330 AC PO 10/01 1329 Electrolytic, Caloric, And Daniel Sig/Jna Start time Last Medication Dose Route Stop [...] 60 MG DAILY 0600 09/19 0600 AC PO 09/21 0601 Insulin Human [...] 0859 0935 Multivitamins 1 TAB DAILY 09/09 09 AC 09/18 PO 10/09 0859 0952 Dose [...] sets. -Repeat blood cultures 08/21/2022 are already positive for MRSA in 2 out of 2 sets, suggesting persistent high-grade bacteremia. -TTE 08/18/2022 negative for any obvious vegetations. -08/28 neg -JIMENA 09/02 neg *Prostatic abscess -s/p transrectal aspiration and unroofing on 08/26 -cx MRSA, citrobacter (r-cefazolin) Enterococcus raffinosus (S-amp,pcn, vancomycin), bacteriodes *ERIKA -nephrology following; worsening *Hyponatremia *Diabetic neuropathy *Diabetes mellitus type 2 *Hypertension *anemia 09/08 -cont on Cefepime and vancomycin til 5/3 for treatment of Prostate abscess -follow esr and crp -EGD today 09/09 -on cefepime and vancomycin til 5/3 for treatment of prostate abscess 09/10 on cefepime and [...] creat improving swelling improved Consultants: cardiology, endocrinology, hospitalist, infectious disease, podiatry Portions of this section were scribed by Jill Quintero on 09/18/22 at 2036 at 2300 RPT #:[id number] END OF REPORT [facility] 2022-09-18 07:55:00 [facility] ([facility]) Nephrology Progress Note REPORT#:[id number] REPORT STATUS: Signed DATE:09/18/22 TIME: 075 PATIENT: KARMA ROWLAND UNIT #: [id number] ROOM/BED: [place] [address] : 61 AGE: 56 SEX: M ATTEND: Mj Vences MD ADM AUTHOR: Barrera Ramírez MD * ALL edits or amendments must be made on the electronic/computer document * Subjective Chief complaint: Infected foot HPI: Patient seen and evaluated on 09/09/2022, note started, [...] change from initial, feels okay. Review of Systems Constitutional: Reports: [...] 09/18 0524 79 14 169/88 114.7 98 04/27 0022 36.6 81 16 153/82 105.7 98 [...] no edema Musculoskeletal: no CVA tenderness, no tenderness Neuro/QUANTITATIVE ANALYST: alert, 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 Considered stroke alert: no [...] Magnesium (1.80 - 2.40 mg/dL) 1.97 09/16 1549 1441 1110 0553 Chemistry POC [...] - 32.0 %) 17.4 10.2 L 18.6 [place] % (Auto) (4.8 - 9.0 %) 6.9 2.9 L 6.7 Eos % (Auto) (0.3 - 3.7 %) 0.1 L 0.0 L 0.2 L Baso % (Auto) (0.0 - 2.0 %) 0.1 0.1 0.1 Neut # (Auto) (2.0 - 7.6 x10 3/uL) 7.91 H 7.58 6.99 Lymph # (Auto) (1.0 - 3.8 x10 3/uL) 1.85 0.91 L 1.77 [place] # (Auto) (0.1 - 0.8 x10 3/uL) [...] pH (5.0 - 7.0) 5.0 Ur Specific [place] (1.005 - 1.030) 1.013 Urine Protein (NEGATIVE) [...] % (Auto) (14.0 - 32.0 %) 17.4 [place] % (Auto) (4.8 - 9.0 %) 6.9 Eos % (Auto) (0.3 - 3.7 %) 0.1 L Baso % (Auto) (0.0 - 2.0 %) 0.1 Neut # (Auto) (2.0 - 7.6 x10 3/uL) 7.91 H Lymph # (Auto) (1.0 - 3.8 x10 3/uL) 1.85 [place] # (Auto) (0.1 - 0.8 x10 3/uL) [...] 3/uL) 0.00 Diagnosis, Assessment Plan Free Text A P: Patient seen and evaluated, discussed with care team, images and laboratories reviewed. Diabetes mellitus: Insulin: Monitor blood sugar closely and adjust medications as needed, followed by endocrinology. Hypertension: Blood pressure is not well controlled, increase Coreg to 12.5 mg p.o. twice daily: Monitor blood pressure closely and adjust medications as needed Right foot gangrene/infection status post right BKA Anemia: Status post EGD and colonoscopy which were negative for active GI bleeding, patient had work-up in July 2022 which showed very high B12, normal folate, very low iron saturation but very high ferritin which was likely related to his infection, likely patient is very iron deficient, will repeat lab and give IV iron if needed. We will check serum immunofixation. Acute kidney injury: We will check renal bladder ultrasound, check postvoid residual, check urine protein creatinine ratio Hypomagnesemia: We will supplement 09/10/2022 laboratory this morning showed sodium 135, potassium 4.2, CO2 21, BUN 25, creatinine 1.9 continues to worsen, etiology unclear, however his development some eosinophilia not sure if he is developing AIN, suggest changing cefepime to a different class of antibiotic if possible, will check renal bladder ultrasound 09/11/2022 laboratory this morning showed sodium 134, potassium 4.3, CO2 22, BUN 26, creatinine 2 up from 1.9, hopefully creatinine is plateauing, renal ultrasound negative. 09/12/2022 laboratory this morning showed sodium 134, potassium 4.2, CO2 20, BUN 31, creatinine 2.4 continues to worsen, discussed with ID, AIN is probably the etiology of the unexplained deterioration of his renal function, antibiotics to be adjusted by infectious disease, will give Solu-Medrol 125 mg IV daily for 3 days. Significant lower extremity edema, will start Lasix 20 mg p.o. twice daily. 23: pt was seen and examined. Very thirsty. serum creatinine is worsening today. Vancomycin was stopped yesterday and Solu medrol was started. Mild hypovolemic hyponatremia. Will DC lasix and monitor his renal functions. BP is well controlled. 23: pt was seen and examined. Feels better but still thirsty. I stopped his lasix. will start NS at 75 cc for [...] plan for kidney biopsy 09/16/2022 laboratory this morning showed sodium 135, potassium 4.5, CO2 20, BUN 60, creatinine 2.7, better down from 2.9, hemoglobin 7.6, platelet 360, blood count 9.5, will give prednisone 80 mg p.o. today, blood pressure is elevated, will add hydralazine 25 mg p.o. 3 times daily, scrotal and LE swelling will give Lasix 40 mg IV x 3 09/17/2022 blood pressure still elevated, will increase hydralazine to 50 mg p.o. 3 times daily, will give 80 mg of prednisone today, urine output with Lasix 4125 , laboratory this morning showed sodium 136, potassium 4.5, CO2 21, BUN 66, creatinine 2.4 down from 2.7, will give 3 more doses of IV Lasix 40 mg every 8 hours 09/18/2022 laboratory this morning showed sodium 138, potassium 4.1, CO2 21, BUN 66, creatinine 2.2 continues to improve, urine output 2.7 L, hemoglobin 7.6, platelet 341, blood count 10.6, will give Lasix 40 mg IV every 8 for 3 doses, start prednisone 60 mg p.o. daily for 3 days, increase hydralazine to 75 mg p.o. 3 times daily. Consultants: cardiology, endocrinology, hospitalist, infectious disease, podiatry at 1005 RPT #:[id number] END OF REPORT [facility] 2022-09-17 20:38:00 [facility]) Podiatry Progress Note REPORT#:[id number] REPORT STATUS: Signed DATE:09/17/22 TIME: 2037 PATIENT: KARMA ROWLAND UNIT #: [id number] ROOM/BED: [place] [address] : 61 AGE: 56 SEX: M ATTEND: Mj Vences MD ADM AUTHOR: Liam Jeffrey DPM * ALL edits or amendments must be made on the electronic/computer document * Subjective Chief complaint: left heel [...] imported from the dietitian's assessment. BMI Calculated: 28.8 Nutrition related diagnosis: Nutrition diagnosis details: Nutrition problem: Altered nutrition labs Nutrition etiology: DM Nutrition signs and symptoms: HYPER/HYPOGLYCEMIA, A1C >14 Nutrition prescription: CONTINUE DM DIET [...] (Auto) (14.0 - 32.0 %) 10.2 L [place] % (Auto) (4.8 - 9.0 %) 2.9 L Eos % (Auto) (0.3 - 3.7 %) 0.0 L Baso % (Auto) (0.0 - 2.0 %) 0.1 Neut # (Auto) (2.0 - 7.6 x10 3/uL) 7.58 Lymph # (Auto) (1.0 - 3.8 x10 3/uL) 0.91 L [place] # (Auto) (0.1 - 0.8 x10 3/uL) [...] 3/uL) 0.00 Diagnosis, Assessment Plan Free Text A P: DM with neuropathy early decub ulcer left heel OA/edema left ankle early ulcer/DTI dorsal left midfoot zinc oxide to foot and heel foam to heel on IV abx on PO gabapentin offloading boot joan wraps to ankle, only when OOB with therapy. zinc oxide interchange with bactroban ( applied to dorsal left midfoot early ulcer) Consultants: cardiology, endocrinology, hospitalist, infectious disease, podiatry at 2039 RPT #:[id number] END OF REPORT [facility] 2022-09-17 18:25:00 [facility] Endocrinology Progress Note REPORT#:[id number] REPORT STATUS: Signed DATE:09/17/22 TIME: 1824 PATIENT: KARMA ROWLAND UNIT #: [id number] ROOM/BED: [place] [address] : 61 AGE: 56 SEX: M ATTEND: Mj Vences MD ADM AUTHOR: Braxton Chapin MD * ALL edits or amendments must be made on the electronic/computer document * Subjective Patient reports: no complaints [...] (Auto) (14.0 - 32.0 %) 10.2 L [place] % (Auto) (4.8 - 9.0 %) 2.9 L Eos % (Auto) (0.3 - 3.7 %) 0.0 L Baso % (Auto) (0.0 - 2.0 %) 0.1 Neut # (Auto) (2.0 - 7.6 x10 3/uL) 7.58 Lymph # (Auto) (1.0 - 3.8 x10 3/uL) 0.91 L [place] # (Auto) (0.1 - 0.8 x10 3/uL) [...] % (Auto) (14.0 - 32.0 %) 18.6 [place] % (Auto) (4.8 - 9.0 %) 6.7 Eos % (Auto) (0.3 - 3.7 %) 0.2 L Baso % (Auto) (0.0 - 2.0 %) 0.1 Neut # (Auto) (2.0 - 7.6 x10 3/uL) 6.99 Lymph # (Auto) (1.0 - 3.8 x10 3/uL) 1.77 [place] # (Auto) (0.1 - 0.8 x10 3/uL) [...] pH (5.0 - 7.0) 5.0 Ur Specific [place] (1.005 - 1.030) 1.013 Urine Protein (NEGATIVE) [...] 52.5 U Random Total Protein (mg/dL) 283 04/24 04/23 0515 1931 Chemistry Sodium (134 - 147 [...] (Auto) (14.0 - 32.0 %) 11.3 L [place] % (Auto) (4.8 - 9.0 %) 3.2 L Eos % (Auto) (0.3 - 3.7 %) 0.0 L Baso % (Auto) (0.0 - 2.0 %) 0.1 Neut # (Auto) (2.0 - 7.6 x10 3/uL) 7.35 Lymph # (Auto) (1.0 - 3.8 x10 3/uL) 0.98 L [place] # (Auto) (0.1 - 0.8 x10 3/uL) [...] (Auto) (14.0 - 32.0 %) 13.9 L [place] % (Auto) (4.8 - 9.0 %) 5.1 Eos % (Auto) (0.3 - 3.7 %) 0.0 L Baso % (Auto) (0.0 - 2.0 %) 0.1 Neut # (Auto) (2.0 - 7.6 x10 3/uL) 7.58 Lymph # (Auto) (1.0 - 3.8 x10 3/uL) 1.31 [place] # (Auto) (0.1 - 0.8 x10 3/uL) [...] Laboratory Tests: 09/13 09/13 09/13 09/12 1105 0542 0729 2016 Chemistry Sodium (134 - 147 mEq/L) [...] (Auto) (14.0 - 32.0 %) 10.4 L [place] % (Auto) (4.8 - 9.0 %) 3.5 L Eos % (Auto) (0.3 - 3.7 %) 0.0 L Baso % (Auto) (0.0 - 2.0 %) 0.1 Neut # (Auto) (2.0 - 7.6 x10 3/uL) 8.34 H Lymph # (Auto) (1.0 - 3.8 x10 3/uL) 1.02 [place] # (Auto) (0.1 - 0.8 x10 3/uL) [...] % (Auto) (14.0 - 32.0 %) 15.0 [place] % (Auto) (4.8 - 9.0 %) 7.9 Eos % (Auto) (0.3 - 3.7 %) 3.8 H Baso % (Auto) (0.0 - 2.0 %) 0.3 Neut # (Auto) (2.0 - 7.6 x10 3/uL) 6.34 Lymph # (Auto) (1.0 - 3.8 x10 3/uL) 1.31 [place] # (Auto) (0.1 - 0.8 x10 3/uL) [...] % (Auto) (14.0 - 32.0 %) 16.1 [place] % (Auto) (4.8 - 9.0 %) 9.1 H Eos % (Auto) (0.3 - 3.7 %) 5.6 H Baso % (Auto) (0.0 - 2.0 %) 0.5 Neut # (Auto) (2.0 - 7.6 x10 3/uL) 5.35 Lymph # (Auto) (1.0 - 3.8 x10 3/uL) 1.27 [place] # (Auto) (0.1 - 0.8 x10 3/uL) [...] % (Auto) (14.0 - 32.0 %) 15.5 [place] % (Auto) (4.8 - 9.0 %) 8.5 Eos % (Auto) (0.3 - 3.7 %) 5.5 H Baso % (Auto) (0.0 - 2.0 %) 0.4 Neut # (Auto) (2.0 - 7.6 x10 3/uL) 5.94 Lymph # (Auto) (1.0 - 3.8 x10 3/uL) 1.33 [place] # (Auto) (0.1 - 0.8 x10 3/uL) [...] % (Auto) (14.0 - 32.0 %) 16.1 [place] % (Auto) (4.8 - 9.0 %) 9.2 H Eos % (Auto) (0.3 - 3.7 %) 4.7 H Baso % (Auto) (0.0 - 2.0 %) 0.4 Neut # (Auto) (2.0 - 7.6 x10 3/uL) 6.38 Lymph # (Auto) (1.0 - 3.8 x10 3/uL) 1.49 [place] # (Auto) (0.1 - 0.8 x10 3/uL) [...] (Auto) (14.0 - 32.0 %) 13.7 L [place] % (Auto) (4.8 - 9.0 %) 7.2 Eos % (Auto) (0.3 - 3.7 %) 4.8 H Baso % (Auto) (0.0 - 2.0 %) 0.3 Neut # (Auto) (2.0 - 7.6 x10 3/uL) 6.64 Lymph # (Auto) (1.0 - 3.8 x10 3/uL) 1.24 [place] # (Auto) (0.1 - 0.8 x10 3/uL) [...] abdomen. Impression By: [id number] - Roger Parra M.D. ULTRASOUND - DUP VEIN UNI/LTD 09/05 1146 Report Impression - Status: SIGNED Entered: 09/05/2022 1333 IMPRESSION: 1. No evidence of deep vein thrombosis. 2. Complex heterogeneous hypoechoic fluid collection in the left calf region measuring 8.4 x 2.8 x 2.5 cm; there is no internal vascularity or peripheral hyperemia. May represent a hematoma. Impression By: [id number] - Mert Ga M.D. RADIOLOGY - XR CHEST 1 V 09/05 1432 Report Impression - Status: SIGNED Entered: 09/05/2022 1515 IMPRESSION: Minimal bibasilar pulmonary opacities Impression By: TipTDO - Bishop Mares M.D. Laboratory [...] COLB STOOL 1.Diabetes mellitus type 2 uncontrolled complications. 2. 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 4. Sepsis 5. Prostate abscess. 6. Anemia Blood sugar 285-256 mg/dL.H/H 8.11/17. Adjust insulin dose. PT and OT. at 1826 RPT #:[id number] END OF REPORT [facility] 2022-09-17 15:00:00 [facility] Gastroenterology Progress Note REPORT#:[id number] REPORT STATUS: Signed DATE:09/17/22 TIME: 1500 PATIENT: KARMA ROWLAND UNIT #: [id number] ROOM/BED: [place] [address] : 61 AGE: 56 SEX: M ATTEND: Mj Vences MD ADM AUTHOR: Kassie Avitia MD * ALL edits or amendments must be made on the electronic/computer document * Subjective HPI: Patient is a 56-year-old male with history of diabetes mellitus type 2 and hypertension who was initially admitted for altered mental status and right- sided foot infection. [...] gym. Tolerating diet. Normal BMs. Stable H/H 09/14-Sitting up in wheelchair, family at bedside. Denies [...] years Anemia likely secondary to chronic kidney disease. Can consider video capsule endoscopy as outpt if evidence of dropping H/H H/H remains stable Consider checking blood work Q3 days since H/H is stable Will follow along Consultants: cardiology, endocrinology, hospitalist, infectious disease, podiatry at 1500 RPT #:[id number] END OF REPORT [facility] 2022-09-17 13:09:00 [facility] ([facility]) Pain Management Progress Note REPORT#:[id number] REPORT STATUS: Signed DATE:09/17/22 TIME: 1309 PATIENT: KARMA ROWLAND UNIT #: [id number] ROOM/BED: [place] [address] : 61 AGE: 56 SEX: M ATTEND: Mj Vences MD ADM AUTHOR: Ben Klein * ALL edits or amendments must be made on the electronic/computer document * Ben Klein 09/17/22 1309: Subjective [...] fever/chills, chest pain, orthopnea, nausea/vomiting, pruritus, or hallucinations. 14 point ROS undertaken unremarkable except as noted Objective General VS/I O: Vital Signs Date [...] Exam General appearance: alert, awake, oriented, no acute distress Head/eyes: atraumatic, EOMI, normocephalic, normal conjunctiva/sclera, PERRLA ENT: normal ear left, normal ear right, normal nose, normal pharynx, moist mucosal membranes Neck: full range of motion, no lymphadenopathy, supple/no meningismus Cardiovascular: regular rate rhythm Respiratory: clear to auscultation, no distress, aerating well Abdomen: soft, non-tender, no distention, active bowel sounds in all quarants. Abdomen quadrants LLQ normal bowel sounds, LUQ normal bowel sounds, RLQ normal bowel sounds, RUQ normal bowel sounds Extremities: moves all, no edema, pedal pulses Neuro/QUANTITATIVE ANALYST: 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, no sensory deficits, CNII-XII grossly intact Considered stroke alert: no [...] (Auto) (14.0 - 32.0 %) 10.2 L [place] % (Auto) (4.8 - 9.0 %) 2.9 L Eos % (Auto) (0.3 - 3.7 %) 0.0 L Baso % (Auto) (0.0 - 2.0 %) 0.1 Neut # (Auto) (2.0 - 7.6 x10 3/uL) 7.58 Lymph # (Auto) (1.0 - 3.8 x10 3/uL) 0.91 L [place] # (Auto) (0.1 - 0.8 x10 3/uL) [...] H 62 L 60 L Diagnosis, Assessment Plan Free text A P: A/P: Patient is a 56 year old male who presents with: Past Medical History: Prostate abscess, right foot foot and ankle gangrene, diabetes, hypertension, hyperlipidemia Past Surgical History: TURP, right BKA Family History: Noncontributory Social History: Denies tobacco, alcohol, or drug use Allergies: NKDA Recent prostate abscess -Status post TURP with unroofing of abscess -IV antibiotics with vancomycin until 09-24-2022 Acute postoperative pain, right foot and ankle gangrene, requiring BKA -Patient is at risk for further amputations or loss of limb due to comorbid conditions -Status post right BKA 08/28/2022 -DC [place] 10/325 1 tablet p.o. every 4 hours as needed pain scale 4 10 -DC Dilaudid 0.5 mg IV daily as needed pain scale 7 10, second line therapy () -Tylenol 650 mg p.o. every 6 hours as needed pain scale 1 3 -Percocet 10/325mg every 4 hours as needed, pain scale 4-10 (09/10) -Lidoderm patch to left ankle daily -IV antibiotics with vancomycin until 09-24-2022 -Local wound care -manageable Diabetic peripheral neuropathy -amitriptyline 25mg PO QHS -Gabapentin 100mg every 8 hours (09/10) -manageable Hypertension -We will monitor hypertension and tachycardia due to pain, and hypotension as well as bradycardia secondary over sedation with narcotics -Hydralazine as needed Elevated LFTs -08/20/22-AST 51, ALT 22 -09/03/2022-AST 15, ALT 7 -Patient will require close monitoring since he is using narcotics with Tylenol Impaired functional mobility, balance, gait, and endurance -PT/OT Antalgic/Impaired gait -PT/OT -Improve strength, endurance, self-care, gait, balance, ADLs -Fall precautions per unit protocol -Pain medications as outlined above Constipation -We will monitor while utilizing opioid narcotic medications. -Adequate fluid intake also discussed. -Colace 100 mg p.o. twice daily as needed -Dulcolax 10 mg rectally daily as needed -Senna lax 8.6mg daily -Miralax 17gm daily -manageable Disposition: percocet 10/325mg q6h prn pain , gabapentin 100mg q8h sent to [facility]/ pharmacy #[id number] [place] [address] [place] [address] ([facility] [address]) Phone: Patient has failed conservative medical therapy. Patient will require monitoring while utilize narcotic medications [...] whom agrees. Thank you for the consultation. [place] ORCHESTRA LEADER: -database searched, no information found Kingsley Ng 10/04/22 1731: Attestations Physician Attestation Agree w/findings plan: The patient was seen and examined by Ben Klein. I personally developed the care plan, which was continued by the mid-level provider. I was immediately available. at 1902 at 1734 RPT #:[id number] END OF REPORT [facility] 2022-09-17 12:37:00 [facility] ([facility] Hospitalist Progress Note REPORT#:[id number] REPORT STATUS: Signed DATE:09/17/22 TIME: 1237 PATIENT: KARMA ROWLAND UNIT #: [id number] ROOM/BED: [place] [address] : 63 AGE: 56 SEX: M ATTEND: Mj Vences MD ADM AUTHOR: Meera Chavira DO * ALL edits or amendments must be made on the electronic/computer document * Subjective Chief complaint: Increasing edema [...] Exam General appearance: alert, awake, oriented, no acute distress, pleasant, conversational, mental status normal, no respiratory distress Head/Eyes: atraumatic, normocephalic ENT: moist mucosal membranes Neck: no JVD Cardiovascular: normal heart sounds, regular rate rhythm Respiratory: aerating well, clear to auscultation Abdomen: non-tender, normal bowel sounds Genitourinary: no bladder distention Extremities: edema (1+ pitting edema to thigh), moves all, normal capillary refill Musculoskeletal: normal inspection Neuro/QUANTITATIVE ANALYST: alert, oriented X 3, 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 Considered stroke alert: no Skin: dry, intact Psychiatry: normal affect, normal judgment/insight Results Findings/Data: Laboratory Tests 09/17 09/17 09/17 [...] (Auto) (14.0 - 32.0 %) 10.2 L [place] % (Auto) (4.8 - 9.0 %) 2.9 L Eos % (Auto) (0.3 - 3.7 %) 0.0 L Baso % (Auto) (0.0 - 2.0 %) 0.1 Neut # (Auto) (2.0 - 7.6 x10 3/uL) 7.58 Lymph # (Auto) (1.0 - 3.8 x10 3/uL) 0.91 L [place] # (Auto) (0.1 - 0.8 x10 3/uL) [...] 0.1 x10 3/uL) 0.00 Diagnosis, Assessment Plan Consultants: cardiology, endocrinology, hospitalist, infectious disease, podiatry Free Text DxA P Notes Free text DxA P notes: Gangrene of right foot s/p Below- knee amputation Prostate abscess MRSA bacteremia Hx of Diabetes, Diabetic neuropathy HTN ERIKA PLANS: Continue with PT/OT per primary Wound care and Abx as per ID Hepain PPX IV iron BP continues to be elevated, add Hydralazine. cont Metoprolol to 25 mg BID BS above target due to recent steroids started by Nephrology for AIN - Endo adjusting insulin pain control creatinine continuing to trend down Hgb stabilized. continue to monitor at 1240 RPT #:[id number] END OF REPORT [facility] 2022-09-17 12:10:00 [facility] ([facility]) Infectious Dis. Progress Note REPORT#:[id number] REPORT STATUS: Signed DATE:09/17/22 TIME: 1210 PATIENT: KARMA ROWLAND UNIT #: [id number] ROOM/BED: [place] [address] : 63 AGE: 56 SEX: M ATTEND: Mj Vences MD ADM AUTHOR: Linda Anderson MD * ALL edits or amendments must be made on the electronic/computer document * Subjective HPI: PT is a [...] was transferred to Rehab on 09/02. Patient reports: No: cough, diarrhea, fever, headache, nausea, shortness of breath, vomiting. Portions of this section were scribed by Jlil Quintero on 09/17/22 at 1210 Objective General [...] 0 0 Output, Urine 217 1950 Patient 80.95 kg Weight Weight Bed scale Measurement Method PATIENT WEIGHT: Weight (lb): 178 Weight (oz): 7.43 Weight (kg): 80.950 Antibiotic start date: Antibiotic: vancomycin Start Date:09/03-09/12 Antibiotic: daptomycin Start Date:08/28-09/03, restarted on 09/12 Antibiotic: cefepime Start Date:09/01-09/12 Antibiotic: merrem Start Date:08/27-09/01, 09/12- Physical Exam Head/Eyes: atraumatic, clear cornea, EOMI, normal conjunctiva/sclera, normal eyelids/periorb, normocephalic, PERRL ENT: moist mucosal membranes, normal dentition Neck: full range of motion Cardiovascular: normal heart sounds, regular rate rhythm Respiratory: clear to auscultation, aerating well Abdomen: non-tender, normal bowel sounds, soft Extremities: moves all, right BKA Left foot wound +dressing in place Neuro/QUANTITATIVE ANALYST: alert, oriented X 3 Considered stroke alert: [...] (Auto) (14.0 - 32.0 %) 10.2 L [place] % (Auto) (4.8 - 9.0 %) 2.9 L Eos % (Auto) (0.3 - 3.7 %) 0.0 L Baso % (Auto) (0.0 - 2.0 %) 0.1 Neut # (Auto) (2.0 - 7.6 x10 3/uL) 7.58 Lymph # (Auto) (1.0 - 3.8 x10 3/uL) 0.91 L [place] # (Auto) (0.1 - 0.8 x10 3/uL) [...] 09/17 09/17 09/17 09/17 1027 0951 0601 [id number] [id number] Chemistry Sodium (134 - 147 mEq/L) 136 [...] (Auto) (14.0 - 32.0 %) 10.2 L [place] % (Auto) (4.8 - 9.0 %) 2.9 L Eos % (Auto) (0.3 - 3.7 %) 0.0 L Baso % (Auto) (0.0 - 2.0 %) 0.1 Neut # (Auto) (2.0 - 7.6 x10 3/uL) 7.58 Lymph # (Auto) (1.0 - 3.8 x10 3/uL) 0.91 L [place] # (Auto) (0.1 - 0.8 x10 3/uL) [...] % (Auto) (14.0 - 32.0 %) 18.6 [place] % (Auto) (4.8 - 9.0 %) 6.7 Eos % (Auto) (0.3 - 3.7 %) 0.2 L Baso % (Auto) (0.0 - 2.0 %) 0.1 Neut # (Auto) (2.0 - 7.6 x10 3/uL) 6.99 Lymph # (Auto) (1.0 - 3.8 x10 3/uL) 1.77 [place] # (Auto) (0.1 - 0.8 x10 3/uL) [...] pH (5.0 - 7.0) 5.0 Ur Specific Cohagen (1.005 - 1.030) 1.013 Urine Protein (NEGATIVE) [...] 09/15 2100 AC 09/17 SUBQ 10/15 205 09 Cardiovascular Drugs [...] 09/15 2100 AC 09/16 SUBQ 10/15 2058 2059 Insulin Human Lispro 0 AC HS [...] Oxide 1 APPLIC DAILY 09/04 09 AC 09/17 TOPICAL 10/04 0859 0901 Vitamins Sig/Jan Start time Last Medication Dose Route Stop Time Status Admin Folic Acid 2 MG DAILY 09/09 899 AC 09/17 PO 10/09 0859 09 Multivitamins 1 TAB DAILY 09/09 899 AC 09/17 PO 10/09 0859 0900 Dose Instructions: (1)Sterile Water: DRESSING CHANGE Microbiology: 09/15 0515 NASAL: MRSA DNA Surveillance Screen - COMP Portions of this section were scribed by Jill Quintero on 09/17/22 at 1210 Treatment Prophylaxis Treatment Prophylaxis Lines: PICC Portions of this section were scribed by Jill Quintero on 09/17/22 at 1210 Diagnosis, Assessment Plan Free Text A P: *MRSA bacteremia -Initial blood cultures from 08/18/2022 positive for MRSA in 2 out of 2 sets. -Repeat blood cultures 08/21/2022 are already positive for MRSA in 2 out of 2 sets, suggesting persistent high-grade bacteremia. -TTE 08/18/2022 negative for any obvious vegetations. -08/28 neg -JIMENA 09/02 neg *Prostatic abscess -s/p transrectal aspiration and unroofing on 08/26 -cx MRSA, citrobacter (r-cefazolin) Enterococcus raffinosus (S-amp,pcn, vancomycin), bacteriodes *ERIKA -nephrology following; worsening *Hyponatremia *Diabetic neuropathy *Diabetes mellitus type 2 *Hypertension *anemia 09/08 -cont on Cefepime and vancomycin til 5/3 for treatment of Prostate abscess -follow esr and crp -EGD today 09/09 -on cefepime and vancomycin til 5/3 for treatment of prostate abscess 09/10 on cefepime and [...] worsening 09/15 on Merrem and Daptomycin til /3 creat still elevated: nephrology following 09/16 On Merrem and Daptomycin til 5/3 monitor creat. ; improving; nephrology following follow esr and crp 09/17 On Merrem and Daptomycin til 5/3 monitor creat. ; improving; nephrology following follow esr and crp remains afebrile; WBC normal Consultants: cardiology, endocrinology, hospitalist, infectious disease, podiatry Portions of this section were scribed by Jill Quintero on 09/17/22 at 1514 at 7320 RPT #:[id number] END OF REPORT [facility] 2022-09-17 10:34:00 [facility] ([facility]) Cardiology Progress Note REPORT#:[id number] REPORT STATUS: Signed DATE:09/17/22 TIME: 103 PATIENT: KARMA ROWLAND UNIT #: [id number] ROOM/BED: [place] [address] : 61 AGE: 56 SEX: M ATTEND: Mj Vences MD ADM AUTHOR: Rohit Benitez LOG ROPER * ALL edits or amendments must be made on the electronic/computer document * Rohit Benitez 09/17/22 1034: Subjective Chief complaint: weakness Free Text Subj Notes Free Text Subj Notes: Patient seen and evaluated. Resting in bed, feels [...] regular rate and rhythm, no ectopy, no gallop Respiratory: clear to auscultation, no distress Abdomen: soft, non-tender Lower extremity: LE assessment: edema, normal temperature Neuro/QUANTITATIVE ANALYST: alert, oriented X 3 Considered stroke alert: no Wound/incision: Location: right bka Psychiatry: normal affect, normal judgment/insight, normal mood Results Findings/Data: Laboratory Tests 09/17 09/17 09/17 09/17 09/16 0951 [...] (Auto) (14.0 - 32.0 %) 10.2 L [place] % (Auto) (4.8 - 9.0 %) 2.9 L Eos % (Auto) (0.3 - 3.7 %) 0.0 L Baso % (Auto) (0.0 - 2.0 %) 0.1 Neut # (Auto) (2.0 - 7.6 x10 3/uL) 7.58 Lymph # (Auto) (1.0 - 3.8 x10 3/uL) 0.91 L [place] # (Auto) (0.1 - 0.8 x10 3/uL) [...] 1.97 Diagnosis, Assessment Plan Consultants: cardiology, endocrinology, hospitalist, infectious disease, podiatry Free [...] rehab for physical therapy. Known cardiac history of hypertension and hyperlipidemia. Vital signs stable. Echocardiogram with [...] BMP in the morning. Supportive care. Plan of care discussed with [...] Continue hold diuretic for now. Supportive care. Plan of care discussed with patient, RN and Dr. Parham. 09/15: Repeat echocardiogram showed LVEF of 55 to 60%, no regional wall motion abnormalities, left ventricular diastolic function parameters are indeterminate, mildly dilated [...] RN and Dr. Parham. Napoleon Parham 09/18/22 0859: Diagnosis, Assessment Plan Additional comments: Agree with above assessment and plan as documented by nurse practitioner, continue current management, will follow. at 1751 at 0903 RPT #:[id number] END OF REPORT [facility] 2022-09-17 07:13:00 [facility] ([facility]) Nephrology Progress Note REPORT#:[id number] REPORT STATUS: Signed DATE:09/17/22 TIME: 712 PATIENT: KARMA ROWLAND UNIT #: [id number] ROOM/BED: [place] [address] : 61 AGE: 56 SEX: M ATTEND: Mj Vences MD ADM AUTHOR: Barrera Ramírez MD * ALL edits or amendments must be made on the electronic/computer document * Subjective Chief complaint: Infected foot HPI: Patient seen and evaluated on 09/09/2022, note started, [...] change from initial, feels okay. Review of Systems Constitutional: Reports: [...] no edema Musculoskeletal: no CVA tenderness, no tenderness Neuro/QUANTITATIVE ANALYST: alert, 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 Considered stroke alert: no [...] H 290 H Laboratory Tests 09/16 09/15 2285 0515 Hematology WBC (4.5 - 11.0 x10 [...] (14.0 - 32.0 %) 18.6 11.3 L [place] % (Auto) (4.8 - 9.0 %) 6.7 3.2 L Eos % (Auto) (0.3 - 3.7 %) 0.2 L 0.0 L Baso % (Auto) (0.0 - 2.0 %) 0.1 0.1 Neut # (Auto) (2.0 - 7.6 x10 3/uL) 6.99 7.35 Lymph # (Auto) (1.0 - 3.8 x10 3/uL) 1.77 0.98 L [place] # (Auto) (0.1 - 0.8 x10 3/uL) [...] pH (5.0 - 7.0) 5.0 Ur Specific Cohagen (1.005 - 1.030) 1.013 Urine Protein (NEGATIVE) [...] and laboratories reviewed. Diabetes mellitus: Insulin: Monitor blood sugar closely and adjust medications as needed, followed by endocrinology. Hypertension: Blood pressure is not well controlled, increase Coreg to 12.5 mg p.o. twice daily: Monitor blood pressure closely and adjust medications as needed Right foot gangrene/infection status post right BKA Anemia: Status post EGD and colonoscopy which were negative for active GI bleeding, patient had work-up in July 2022 which showed very high B12, normal folate, very low iron saturation but very high ferritin which was likely related to his infection, likely patient is very iron deficient, will repeat lab and give IV iron if needed. We will check serum immunofixation. Acute kidney injury: We will check renal bladder ultrasound, check postvoid residual, check urine protein creatinine ratio Hypomagnesemia: We will supplement 09/10/2022 laboratory this morning showed sodium 135, potassium 4.2, CO2 21, BUN 25, creatinine 1.9 continues to worsen, etiology unclear, however his development some eosinophilia not sure if he is developing AIN, suggest changing cefepime to a different class of antibiotic if possible, will check renal bladder ultrasound 09/11/2022 laboratory this morning showed sodium 134, potassium 4.3, CO2 22, BUN 26, creatinine 2 up from 1.9, hopefully creatinine is plateauing, renal ultrasound negative. 09/12/2022 laboratory this morning showed sodium 134, potassium 4.2, CO2 20, BUN 31, creatinine 2.4 continues to worsen, discussed with ID, AIN is probably the etiology of the unexplained deterioration of his renal function, antibiotics to be adjusted by infectious disease, will give Solu-Medrol 125 mg IV daily for 3 days. Significant lower extremity edema, will start Lasix 20 mg p.o. twice daily. 09.13.22: pt was seen and examined. Very thirsty. serum creatinine is worsening today. Vancomycin was stopped yesterday and Solu medrol was started. Mild hypovolemic hyponatremia. Will DC lasix and monitor his renal functions. BP is well controlled. 09.14.22: pt was seen and examined. Feels better but still thirsty. I stopped his lasix. will start NS at 75 cc for [...] plan for kidney biopsy 09/16/2022 laboratory this morning showed sodium 135, potassium 4.5, CO2 20, BUN 60, creatinine 2.7, better down from 2.9, hemoglobin 7.6, platelet 360, blood count 9.5, will give prednisone 80 mg p.o. today, blood pressure is elevated, will add hydralazine 25 mg p.o. 3 times daily, scrotal and LE swelling will give Lasix 40 mg IV x 3 09/17/2022 blood pressure still elevated, will increase hydralazine to 50 mg p.o. 3 times daily, will give 80 mg of prednisone today, urine output with Lasix 4125 , laboratory this morning showed sodium 136, potassium 4.5, CO2 21, BUN 66, creatinine 2.4 down from 2.7, will give 3 more doses of IV Lasix 40 mg every 8 hours Consultants: cardiology, endocrinology, hospitalist, infectious disease, podiatry at 0925 RPT #:[id number] END OF REPORT [facility] 2022-09-17 07:13:00 [facility] ([facility]) Rehab Progress Note REPORT#:[id number] REPORT STATUS: Signed DATE:09/17/22 TIME: 712 PATIENT: KARMA ROWLAND UNIT #: [id number] ROOM/BED: [place] [address] : 61 AGE: 56 SEX: M ATTEND: Mj Vences MD ADM AUTHOR: Guero Candelaria * ALL edits or amendments must be made on the electronic/computer document * Subjective Chief complaint: Rehab follow-up Feels good today Making good progress Still has edema of BLE and scrotum Eating 75-100% at bedside + BM Denies DICKENS/N/V/D/CP 14 systems reviewed and neg. except that [...] is wearing a nestor-tech orthotic for right knee/BKA protection. Prior to [...] PT daily note comment: S. PATIENT REPORTED INCREASED SWELLIN TO ABDOMEN AND SCROTUM, STATES HE HAS NOT BEEN THIS SWOLLEN EVER . REPORTS GETTING STRONGER O. PATIENT WORKED [...] PIVOT TRANSFERS TO WC WITH CGA FROM HIGHER SURFACE. THIS PM PATIENT WORKED ON BED MBO TO EOB WITH MOD I, APPLIED NESTOR TECH TO RLE AND ABLE TO TRANSFER SQUAT PIVOT WITH CGA TO LEFT SIDE. PATIENT WORKED ON WC MOB TO GYM, SIT TO STANDS IN PARALLEL BARS WITH MIN A. PATIENT GIVEN CUES TO SCOOT TO EDGE OF WC, MOVE TRUNK FORARD AND PUSH OF WC WITH MIN A TO STAND, PATIENT WORKED ON STI TO STANDS X 5, WORKED ON STAND PIVOT WITH PARALLEL BARS X 3 WITH CGA FOR SAFETY. PATIENT WORKED ON MOVEO AT 10 DEGREE [...] clear bilaterally Abdomen: bowel sounds present, non-distended, soft, non-tender Skin: no rash, R BKA HEALING. L ankle/foot wrapped with kerlix Musculoskeletal - general: Musculoskeletal - general: swelling (LLE, calve NT, homans neg), BUE 5/5, LLE 4/5, R hip 3- Neuro/QUANTITATIVE ANALYST: alert, oriented X 3, CNII-XII intact Results [...] 32.0 %) 10.2 L 18.6 11.3 L [place] % (Auto) (4.8 - 9.0 %) 2.9 L 6.7 3.2 L Eos % (Auto) (0.3 - 3.7 %) 0.0 L 0.2 L 0.0 L Baso % (Auto) (0.0 - 2.0 %) 0.1 0.1 0.1 Neut # (Auto) (2.0 - 7.6 x10 3/uL) 7.58 6.99 7.35 Lymph # (Auto) (1.0 - 3.8 x10 3/uL) 0.91 L 1.77 0.98 L [place] # (Auto) (0.1 - 0.8 x10 3/uL) [...] pH (5.0 - 7.0) 5.0 Ur Specific Cohagen (1.005 - 1.030) 1.013 Urine Protein (NEGATIVE) [...] A P: Assessment: 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 Leroy Significant impairment in self-care, ADLs and functional mobility Impaired mobility and gait Acute postoperative pain right BKA Diabetic polyneuropathy DKA, DM 2, poorly controlled, A1c greater than 14 PAD MRSA bacteremia/sepsis-treated on acute ERIKA Severe hyponatremia-resolved HTN Acute on chronic anemia requiring multiple transfusions, possible GI bleed Left calf hematoma Edema and clinical arthritis left ankle Early decubitus to left heel/DTI dorsal left midfoot Prostatic abscess 08/26: S/p transrectal ultrasound aspiration of abscess and transurethral resection of prostate and unroofing of abscess 09/12: Echo: EF 55-59%, grade 1 diastolic dysfunction 09/02: JIMENA negative for vegetation MRSA OF NARES 09/08:s/p EGD and colonoscopy. EGD showed mild gastritis. Colonoscopy showed rectal polyp that was resected by snare (tubular adenoma)-repeat colonoscopy in 5 years Plan: -PLOF: Independent with transfers and gait -Amputee rehab program -Continue PT and OT -15/12 rehabilitation nursing care. -Case management for safe discharge planning. -Decubitus prevention -Early decubitus to left heel/DTI dorsal left midfoot-zinc oxide to the foot, foam, offloading, podiatry managing -DVT prophylaxis-subcutaneous heparin -Strict fall and safety precautions -Work on bed mobility, transfer training, ADLs, pre-gait and gait exercises -Increase endurance and strength -Monitor pain with therapies -OOB to chair -Monitor p.o. intake and nutrition, albumin 1.3, prealbumin less than 5, dietary consultation, protein supplements to promote healing -Diabetes-A1c 14, tight glycemia control- endocrine on board, insulin adjustments -Endocrinology, ID, podiatry, cardiology, IM consulted -Pain management adjusting pain medications -Anemia, patient required multiple units of PRBCs on acute, FOBT positive -IV Protonix-consult GI-serial H H-no evidence of gross bleeding-discussed with Dr. Trinidad -Constipation-abdominal mvuxzhkf-VJY-mdsipe-CW Senokot and MiraLAX, DSP -Right ARI-wwhcpns-bxgvlctr resolved, dressings changed nuxul-gdnzdwi-vkmntgrl NESTOR-TECH -MRSA OF NARES on Bactroban protocol -LLE edema-venous Doppler with complex heterogeneous hypoechoic fluid collection in the left calf region measuring 8.4, 2.8, 2.5 cm suggestive of hematoma. On low-dose Lasix. Joan wrap LLE -LE edema could be related to hypoalbuminemia leading to third spacing-edema improving -Generalized edema-some shortness of breath and abdominal distention-cardiology gave a dose of IV Lasix-monitor urine output, daily weights-SOB resolved -09/05-venous Doppler of LLE-negative for DVT-Joan wrap dressing and elevation -Anemia-hemoglobin 8.3, 7.7, 8.2, transfused 2 units of PRBC on 09/05 -09/08: s/p EGD and colonoscopy. EGD showed mild gastritis. Colonoscopy showed rectal polyp that was resected by snare. Anemia likely secondary to chronic kidney disease. Consult renal. -Pathology of polyp came back as tubular adenoma. recommend repeating colonoscopy in 5 years as per GI -Consider video capsule endoscopy as outpt if evidence of dropping H/H -Renal ultrasound negative -09/16/2022 laboratory this morning showed sodium 135, potassium [...] nephrology -Completed Solu-Medrol -Noted LLE swelling (not new) and low albumin. may benefit from albumin infusion + Lasix -CXR-worsening opacities in the right mid and lower lung field. Improved left retrocardiac opacities -BNP 297 -09/12: Echo-EF 55-60%, indeterminate diastolic function parameters as per cardio -09/16: Blood pressure slightly elevated, started on hydralazine 25 mg every 8 hours. Continue carvedilol monitor blood pressure trend. Cr. 2.7 today, continue monitor. Tolerating physical therapy. Euvolemic by physical examination as per cardio. -Advance therapies as tolerated-discussed treatment plan with patient and -Patient progressing well in therapy. Patient with improved transfers and endurance. -Car transfer training 09/23 -Discussed with patient and about renal issues that seem to be improving PM R [...] about slight improvement in renal function, on steroids, medical issues, anemia, amputee rehab, discharge plans, rehab plan of care, goals, therapies, progress, labs, medications. EMR and MAR is reviewed. All questions answered Rehab attestation: Face to face exam completed. Treatment plan discussed with patient. Meets continued stay criteria. Agree with interdisciplinary treatment plan. at 1847 RPT #:[id number] END OF REPORT [facility] 2022-09-16 20:09:00 [facility] Podiatry Progress Note REPORT#:[id number] REPORT STATUS: Signed DATE:09/16/22 TIME: 2008 PATIENT: KARMA ROWLAND UNIT #: [id number] ROOM/BED: G.537-1 : 63 AGE: 56 SEX: M ATTEND: Mj Vences MD ADM AUTHOR: Liam Jeffrey DPM * ALL edits or amendments must be made on the electronic/computer document * Subjective Chief complaint: left heel [...] imported from the dietitian's assessment. BMI Calculated: 26.7 Nutrition related diagnosis: Nutrition diagnosis details: Nutrition problem: Altered nutrition labs Nutrition etiology: DM Nutrition signs and symptoms: HYPER/HYPOGLYCEMIA, A1C >14 Nutrition prescription: CONTINUE DM DIET [...] % (Auto) (14.0 - 32.0 %) 18.6 [place] % (Auto) (4.8 - 9.0 %) 6.7 Eos % (Auto) (0.3 - 3.7 %) 0.2 L Baso % (Auto) (0.0 - 2.0 %) 0.1 Neut # (Auto) (2.0 - 7.6 x10 3/uL) 6.99 Lymph # (Auto) (1.0 - 3.8 x10 3/uL) 1.77 [place] # (Auto) (0.1 - 0.8 x10 3/uL) [...] 3/uL) 0.00 Diagnosis, Assessment Plan Free Text A P: DM with neuropathy early decub ulcer left heel OA/edema left ankle early ulcer/DTI dorsal left midfoot zinc oxide to foot and heel foam to heel on IV abx on PO gabapentin offloading boot joan wraps to ankle, only when OOB with therapy. zinc oxide interchange with bactroban ( applied to dorsal left midfoot early ulcer) Consultants: cardiology, endocrinology, hospitalist, infectious disease, podiatry at 2009 RPT #:[id number] END OF REPORT [facility] 2022-09-16 17:23:00 [facility] ([facility]) Endocrinology Progress Note REPORT#:[id number] REPORT STATUS: Signed DATE:09/16/22 TIME: 3 PATIENT: KARMA ROWLAND UNIT #: [id number] ROOM/BED: [facility] : 63 AGE: 56 SEX: M ATTEND: Mj Vences MD ADM AUTHOR: Braxton Chapin MD * ALL edits or amendments must be made on the electronic/computer document * Subjective Patient reports: no complaints [...] % (Auto) (14.0 - 32.0 %) 18.6 [place] % (Auto) (4.8 - 9.0 %) 6.7 Eos % (Auto) (0.3 - 3.7 %) 0.2 L Baso % (Auto) (0.0 - 2.0 %) 0.1 Neut # (Auto) (2.0 - 7.6 x10 3/uL) 6.99 Lymph # (Auto) (1.0 - 3.8 x10 3/uL) 1.77 [place] # (Auto) (0.1 - 0.8 x10 3/uL) [...] pH (5.0 - 7.0) 5.0 Ur Specific [place] (1.005 - 1.030) 1.013 Urine Protein (NEGATIVE) [...] (Auto) (14.0 - 32.0 %) 11.3 L [place] % (Auto) (4.8 - 9.0 %) 3.2 L Eos % (Auto) (0.3 - 3.7 %) 0.0 L Baso % (Auto) (0.0 - 2.0 %) 0.1 Neut # (Auto) (2.0 - 7.6 x10 3/uL) 7.35 Lymph # (Auto) (1.0 - 3.8 x10 3/uL) 0.98 L [place] # (Auto) (0.1 - 0.8 x10 3/uL) [...] Laboratory Tests: 09/14 09/14 09/14 09/14 09/13 8193 9725 5335 1537 4937 Chemistry Sodium (134 - 147 mEq/L) 132 [...] (Auto) (14.0 - 32.0 %) 13.9 L [place] % (Auto) (4.8 - 9.0 %) 5.1 Eos % (Auto) (0.3 - 3.7 %) 0.0 L Baso % (Auto) (0.0 - 2.0 %) 0.1 Neut # (Auto) (2.0 - 7.6 x10 3/uL) 7.58 Lymph # (Auto) (1.0 - 3.8 x10 3/uL) 1.31 [place] # (Auto) (0.1 - 0.8 x10 3/uL) [...] (Auto) (14.0 - 32.0 %) 10.4 L [place] % (Auto) (4.8 - 9.0 %) 3.5 L Eos % (Auto) (0.3 - 3.7 %) 0.0 L Baso % (Auto) (0.0 - 2.0 %) 0.1 Neut # (Auto) (2.0 - 7.6 x10 3/uL) 8.34 H Lymph # (Auto) (1.0 - 3.8 x10 3/uL) 1.02 [place] # (Auto) (0.1 - 0.8 x10 3/uL) [...] % (Auto) (14.0 - 32.0 %) 15.0 [place] % (Auto) (4.8 - 9.0 %) 7.9 Eos % (Auto) (0.3 - 3.7 %) 3.8 H Baso % (Auto) (0.0 - 2.0 %) 0.3 Neut # (Auto) (2.0 - 7.6 x10 3/uL) 6.34 Lymph # (Auto) (1.0 - 3.8 x10 3/uL) 1.31 [place] # (Auto) (0.1 - 0.8 x10 3/uL) [...] % (Auto) (14.0 - 32.0 %) 16.1 [place] % (Auto) (4.8 - 9.0 %) 9.1 H Eos % (Auto) (0.3 - 3.7 %) 5.6 H Baso % (Auto) (0.0 - 2.0 %) 0.5 Neut # (Auto) (2.0 - 7.6 x10 3/uL) 5.35 Lymph # (Auto) (1.0 - 3.8 x10 3/uL) 1.27 [place] # (Auto) (0.1 - 0.8 x10 3/uL) [...] % (Auto) (14.0 - 32.0 %) 15.5 [place] % (Auto) (4.8 - 9.0 %) 8.5 Eos % (Auto) (0.3 - 3.7 %) 5.5 H Baso % (Auto) (0.0 - 2.0 %) 0.4 Neut # (Auto) (2.0 - 7.6 x10 3/uL) 5.94 Lymph # (Auto) (1.0 - 3.8 x10 3/uL) 1.33 [place] # (Auto) (0.1 - 0.8 x10 3/uL) [...] % (Auto) (14.0 - 32.0 %) 16.1 [place] % (Auto) (4.8 - 9.0 %) 9.2 H Eos % (Auto) (0.3 - 3.7 %) 4.7 H Baso % (Auto) (0.0 - 2.0 %) 0.4 Neut # (Auto) (2.0 - 7.6 x10 3/uL) 6.38 Lymph # (Auto) (1.0 - 3.8 x10 3/uL) 1.49 [place] # (Auto) (0.1 - 0.8 x10 3/uL) [...] (Auto) (14.0 - 32.0 %) 13.7 L [place] % (Auto) (4.8 - 9.0 %) 7.2 Eos % (Auto) (0.3 - 3.7 %) 4.8 H Baso % (Auto) (0.0 - 2.0 %) 0.3 Neut # (Auto) (2.0 - 7.6 x10 3/uL) 6.64 Lymph # (Auto) (1.0 - 3.8 x10 3/uL) 1.24 [place] # (Auto) (0.1 - 0.8 x10 3/uL) [...] abdomen. Impression By: [id number] - Roger Parra M.D. ULTRASOUND - [facility] 09/05 1146 Report Impression - Status: SIGNED Entered: 09/05/2022 1333 IMPRESSION: 1. No evidence of deep vein thrombosis. 2. Complex heterogeneous hypoechoic fluid collection in the left calf region measuring 8.4 x 2.8 x 2.5 cm; there is no internal vascularity or peripheral hyperemia. May represent a hematoma. Impression By: [email or web address] Cr Ga M.D. RADIOLOGY - XR CHEST 1 V 09/05 1432 Report Impression - Status: SIGNED Entered: 09/05/2022 1515 IMPRESSION: Minimal bibasilar pulmonary opacities Impression By: Yared Mares M.D. Laboratory Tests: 09/04 [...] COLB STOOL 1.Diabetes mellitus type 2 uncontrolled complications. 2. 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 4. Sepsis 5. Prostate abscess. 6. Anemia Blood sugar 175-148 mg/dL.H/H 8.6/26. Adjust insulin dose. PT and OT. at 1724 RPT #:[id number] END OF REPORT [facility] 2022-09-16 15:04:00 [facility] ([facility]) Rehab Team Conference REPORT#:[id number] REPORT STATUS: Signed DATE:09/16/22 TIME: 1504 PATIENT: KARMA ROWLAND UNIT #: [id number] ROOM/BED: [place] [address] : 61 AGE: 56 SEX: M ATTEND: Mj Vences MD ADM AUTHOR: Mj Vences MD * ALL edits or amendments must be made on the electronic/computer document * Rehabilitation Team Conference Weekly Team Conference Team conf information: Date of conference: 09/16/22 Conference type: Interim Conference scribe: Columba Drew PTA INTERDISCIPLINARY TEAM MEETING PARTICIPANTS: TITLE NAME MD Mj Vences MD RN Crystal Castro, RN PT Anthony Jia, PT OT Williams Mckeon, OT CM/TRINO Burger NO ATTENDEE [facility] Amanda Lai, KEVIN Staff (8) NO ATTENDEE Staff (9) NO ATTENDEE OTHER NAME CREDENTIALS 1 YOU PALMER DIETITIAN 2 FUNCTIONAL CHANGE: TYPE ADMISSION TOTAL INTERIM TOTAL CHANGE Self care 20 29 9 Transfer 17 29 12 Mobility 8 8 0 Wheelchair distance: 200 feet mod i Mobility description: BOWEL AND BLADDER STATUS: Bowel continence admission rating: Bladder continence admission rating: Not applicable Bowel and bladder team conference update: CONT OF [...] ADMISSION 154.4. ABNORMAL LABS 09/15: ALBUMIN 1.50L, BUN 38H, CREAT 2.9H, HGB 8.2. LABS TO BE DRAWN THIS AM. PT team conference update: PATIENT IS PROGRESSING WITH PT, REQUIRES MOD I FOR BED MOB, TRANSFERS WITH CGA LEVEL, WC MOB AMADO 200 FEET . STANDS WITH RW AND MODA. WILL NEED WC, FAMILY PLANS ON BUILDING A RAMP. ORDERED ABX TIL 09/24, WINDOW AND DOOR INSTALLER CONCERNED ON KIDNEY FUNCTION . OT team [...] Other discipline update 1: P.O INTAKE: 75-100% OF RENAL 3 CARB DIET. Other discipline update [...] Twelve steps discharge goal: Med cond/safety concern [place] 150 feet discharge goal: Independent (6) Goal 1 - Bowel function: PATIENT WILL REMAIN CONTINENT OF BOWEL Goal 2 - Bladder function: PATIENT WILL REGAIN BLADDER CONTROL Nursing goal 3: PATIENT WILL BE FREE FROM FALLS DURING STAY Nursing goal 4: PATIENT WILL MAINTAIN SKIN INTEGRITY Nursing goal 5: DISCHARGE PLANNING: Barriers to discharge: Fall risk, Endurance, Pain, Caregiver, NWB RLE, DIFFICULTY WITH TRANSFERS Strategies for D/C barriers: Fall recovery training, Evaluate pain control, Scheduled rest breaks, LE EX, WC MOB, TRANSFER TRAINING, CAREGIVER TRAINING Estimated length of stay in days: 17 Anticipated discharge date: 09/24/22 Discharge date adjustment comment: PATIENT ON IV ANTIBIOTICS UNTIL 09/24/22 Identified financial and/or community resource needs: Family/Caregiver training days: PATIENT AND FAMILY WILL BE EDUCATED ON USE OF GAIT BELT TO LOWER PT TO THE FLOOR IN THE EVENT OF LOSS OF BALANCE TO PREVENT FALL OR INJURY. FAMILIY TRAINING SCHEDULED FOR 09/23/22 [place] day (DATE): 09/23/22 Expected discharge destination: Home Anticipated services upon discharge: Physical therapy, Nursing, Occupational therapy, Home health Anticipated discharge equipment: Drop arm bedside commode, sliding board Impairment group: amputation of limb NOTE Document ONLY ONE Impairment Group Amputation of limb: unilateral lower limb (R BKA) Etiologic diagnosis: Gas gangrene of right foot and ankle S/P R BKA Review of comorbidities: Postoperative anemia, ERIKA, DM, HTN, diabetic neuropathy, HLD MD Review/Recommendations Attestation: This interdisciplinary team conference was led by me and I concur with all decisions made during the team conference and revisions to the individualized overall plan of care. IRF cont stay criteria See my note at 1504 RPT #:[id number] END OF REPORT [facility] 2022-09-16 14:29:00 [facility] ([facility]) Gastroenterology Progress Note REPORT#:[id number] REPORT STATUS: Signed DATE:09/16/22 TIME: 1429 PATIENT: KARMA ROWLAND UNIT #: [id number] ROOM/BED: [place] [address] : 61 AGE: 56 SEX: M ATTEND: Mj Vneces MD ADM AUTHOR: Kassie Avitia MD * ALL edits or amendments must be made on the electronic/computer document * Subjective HPI: Patient is a 56-year-old male with history of diabetes mellitus type 2 and hypertension who was initially admitted for altered mental status and right- sided foot infection. [...] gym. Tolerating diet. Normal BMs. Stable H/H 09/14-Sitting up in wheelchair, family at bedside. Denies [...] years Anemia likely secondary to chronic kidney disease. Can consider video capsule endoscopy as outpt if evidence of dropping H/H H/H remains stable Will follow along Consultants: cardiology, endocrinology, hospitalist, infectious disease, podiatry at 1429 RPT #:[id number] END OF REPORT [facility] 2022-09-16 11:19:00 [facility] ([facility]) Infectious Dis. Progress Note REPORT#:[id number] REPORT STATUS: Signed DATE:09/16/22 TIME: 1119 PATIENT: KARMA ROWLAND UNIT #: [id number] ROOM/BED: [place] [address] : 61 AGE: 56 SEX: M ATTEND: Mj Vences MD ADM AUTHOR: Linda Anderson MD * ALL edits or amendments must be made on the electronic/computer document * Subjective HPI: PT is a [...] was transferred to Rehab on 09/02. Patient reports: No: cough, diarrhea, fever, headache, nausea, shortness of breath, vomiting. Portions of this section were scribed by Jill Quintero on 09/16/22 at 1119 Objective General Antibiotic start date: Antibiotic: vancomycin Start Date:09/03-09/12 Antibiotic: daptomycin Start Date:08/28-09/03, restarted on 09/12 Antibiotic: cefepime Start Date:09/01-09/12 Antibiotic: merrem Start Date:08/27-09/01, 09/12- Physical Exam Head/Eyes: atraumatic, clear cornea, EOMI, normal conjunctiva/sclera, normal eyelids/periorb, normocephalic, PERRL ENT: moist mucosal membranes, normal dentition Neck: full range of motion Cardiovascular: normal heart sounds, regular rate rhythm Respiratory: clear to auscultation, aerating well Abdomen: non-tender, normal bowel sounds, soft Extremities: moves all, right BKA Left foot wound +dressing in place Neuro/QUANTITATIVE ANALYST: alert, oriented X 3 Considered stroke alert: no Skin: dry, intact Portions of this section were scribed by Jill Quintero on 09/16/22 at 1119 Treatment Prophylaxis Treatment Prophylaxis Lines: PICC Portions of this section were scribed by Jill Quintero on 09/16/22 at 1119 Diagnosis, Assessment Plan Free Text A P: *MRSA bacteremia -Initial blood cultures from 08/18/2022 positive for MRSA in 2 out of 2 sets. -Repeat blood cultures 08/21/2022 are already positive for MRSA in 2 out of 2 sets, suggesting persistent high-grade bacteremia. -TTE 08/18/2022 negative for any obvious vegetations. -08/28 neg -JIMENA 09/02 neg *Prostatic abscess -s/p transrectal aspiration and unroofing on 08/26 -cx MRSA, citrobacter (r-cefazolin) Enterococcus raffinosus (S-amp,pcn, vancomycin), bacteriodes *ERIKA -nephrology following; worsening *Hyponatremia *Diabetic neuropathy *Diabetes mellitus type 2 *Hypertension *anemia 09/08 -cont on Cefepime and vancomycin til 5/3 for treatment of Prostate abscess -follow esr and crp -EGD today 09/09 -on cefepime and vancomycin til 5/3 for treatment of prostate abscess 09/10 on cefepime and [...] follow esr and crp Consultants: cardiology, endocrinology, hospitalist, infectious disease, podiatry Portions of this section were scribed by Jill Quintero on 09/16/22 at 1915 at 5876 RPT #:[id number] END OF REPORT [facility] 2022-09-16 09:52:00 [facility] ([facility]) Cardiology Progress Note REPORT#:[id number] REPORT STATUS: Signed DATE:09/16/22 TIME: 951 PATIENT: KARMA ROWLAND UNIT #: [id number] ROOM/BED: [place] [address] : 61 AGE: 56 SEX: M ATTEND: Mj Vences MD ADM AUTHOR: Rohit Benitez LOG ROPER * ALL edits or amendments must be made on the electronic/computer document * Rohit Benitez 09/16/22 0952: Subjective [...] regular rate and rhythm, no ectopy, no gallop Respiratory: clear to auscultation, no distress Abdomen: soft, non-tender Lower extremity: LE assessment: edema, normal temperature Neuro/QUANTITATIVE ANALYST: alert, oriented X 3 Considered stroke alert: no Wound/incision: Location: right bka Psychiatry: normal affect, normal judgment/insight, normal mood Results Findings/Data: Laboratory Tests 09/16 [...] % (Auto) (14.0 - 32.0 %) 18.6 [place] % (Auto) (4.8 - 9.0 %) 6.7 Eos % (Auto) (0.3 - 3.7 %) 0.2 L Baso % (Auto) (0.0 - 2.0 %) 0.1 Neut # (Auto) (2.0 - 7.6 x10 3/uL) 6.99 Lymph # (Auto) (1.0 - 3.8 x10 3/uL) 1.77 [place] # (Auto) (0.1 - 0.8 x10 3/uL) [...] pH (5.0 - 7.0) 5.0 Ur Specific [place] (1.005 - 1.030) 1.013 Urine Protein (NEGATIVE) [...] 1.93 Diagnosis, Assessment Plan Consultants: cardiology, endocrinology, hospitalist, infectious disease, podiatry Free [...] rehab for physical therapy. Known cardiac history of hypertension and hyperlipidemia. Vital signs stable. Echocardiogram with [...] BMP in the morning. Supportive care. Plan of care discussed with [...] Continue hold diuretic for now. Supportive care. Plan of care discussed with patient, RN and Dr. Parham. 09/15: Repeat echocardiogram showed LVEF of 55 to 60%, no regional wall motion abnormalities, left ventricular diastolic function parameters are indeterminate, mildly dilated [...] RN and Dr. Parham. Napoleon Parham 09/18/22 0859: Diagnosis, Assessment Plan Additional comments: Agree with above assessment and plan as documented by nurse practitioner, continue current management, will follow. at 1617 at 0902 RPT #:[id number] END OF REPORT [facility] 2022-09-16 08:17:00 [facility] Nephrology Progress Note REPORT#:[id number] REPORT STATUS: Signed DATE:09/16/22 TIME: 816 PATIENT: KARMA ROWLAND UNIT #: [id number] ROOM/BED: [place] [address] : 61 AGE: 56 SEX: M ATTEND: Mj Vences MD ADM AUTHOR: Barrera Ramírez MD * ALL edits or amendments must be made on the electronic/computer document * Subjective Chief complaint: Infected foot HPI: Patient seen and evaluated on 09/09/2022, note started, [...] no edema Musculoskeletal: no CVA tenderness, no tenderness Neuro/QUANTITATIVE ANALYST: alert, 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 Considered stroke alert: no [...] 307 H Laboratory Tests 09/16 09/15 09/14 5095 0550 0552 Hematology WBC (4.5 - 11.0 x10 3/uL) [...] 32.0 %) 18.6 11.3 L 13.9 L [place] % (Auto) (4.8 - 9.0 %) 6.7 3.2 L 5.1 Eos % (Auto) (0.3 - 3.7 %) 0.2 L 0.0 L 0.0 L Baso % (Auto) (0.0 - 2.0 %) 0.1 0.1 0.1 Neut # (Auto) (2.0 - 7.6 x10 3/uL) 6.99 7.35 7.58 Lymph # (Auto) (1.0 - 3.8 x10 3/uL) 1.77 0.98 L 1.31 [place] # (Auto) (0.1 - 0.8 x10 3/uL) [...] pH (5.0 - 7.0) 5.0 Ur Specific [place] (1.005 - 1.030) 1.013 Urine Protein (NEGATIVE) [...] % (Auto) (14.0 - 32.0 %) 18.6 [place] % (Auto) (4.8 - 9.0 %) 6.7 Eos % (Auto) (0.3 - 3.7 %) 0.2 L Baso % (Auto) (0.0 - 2.0 %) 0.1 Neut # (Auto) (2.0 - 7.6 x10 3/uL) 6.99 Lymph # (Auto) (1.0 - 3.8 x10 3/uL) 1.77 [place] # (Auto) (0.1 - 0.8 x10 3/uL) [...] pH (5.0 - 7.0) 5.0 Ur Specific [place] (1.005 - 1.030) 1.013 Urine Protein (NEGATIVE) [...] and laboratories reviewed. Diabetes mellitus: Insulin: Monitor blood sugar closely and adjust medications as needed, followed by endocrinology. Hypertension: Blood pressure is not well controlled, increase Coreg to 12.5 mg p.o. twice daily: Monitor blood pressure closely and adjust medications as needed Right foot gangrene/infection status post right BKA Anemia: Status post EGD and colonoscopy which were negative for active GI bleeding, patient had work-up in July 2022 which showed very high B12, normal folate, very low iron saturation but very high ferritin which was likely related to his infection, likely patient is very iron deficient, will repeat lab and give IV iron if needed. We will check serum immunofixation. Acute kidney injury: We will check renal bladder ultrasound, check postvoid residual, check urine protein creatinine ratio Hypomagnesemia: We will supplement 09/10/2022 laboratory this morning showed sodium 135, potassium 4.2, CO2 21, BUN 25, creatinine 1.9 continues to worsen, etiology unclear, however his development some eosinophilia not sure if he is developing AIN, suggest changing cefepime to a different class of antibiotic if possible, will check renal bladder ultrasound 09/11/2022 laboratory this morning showed sodium 134, potassium 4.3, CO2 22, BUN 26, creatinine 2 up from 1.9, hopefully creatinine is plateauing, renal ultrasound negative. 09/12/2022 laboratory this morning showed sodium 134, potassium 4.2, CO2 20, BUN 31, creatinine 2.4 continues to worsen, discussed with ID, AIN is probably the etiology of the unexplained deterioration of his renal function, antibiotics to be adjusted by infectious disease, will give Solu-Medrol 125 mg IV daily for 3 days. Significant lower extremity edema, will start Lasix 20 mg p.o. twice daily. 09.13.23: pt was seen and examined. Very thirsty. serum creatinine is worsening today. Vancomycin was stopped yesterday and Solu medrol was started. Mild hypovolemic hyponatremia. Will DC lasix and monitor his renal functions. BP is well controlled. 09.14.23: pt was seen and examined. Feels better but still thirsty. I stopped his lasix. will start NS at 75 cc for [...] plan for kidney biopsy 09/16/2022 laboratory this morning showed sodium 135, potassium 4.5, CO2 20, BUN 60, creatinine 2.7, better down from 2.9, hemoglobin 7.6, platelet 360, blood count 9.5, will give prednisone 80 mg p.o. today, blood pressure is elevated, will add hydralazine 25 mg p.o. 3 times daily, scrotal and LE swelling will give Lasix 40 mg IV x 3 Consultants: cardiology, endocrinology, hospitalist, infectious disease, podiatry at 1046 RPT #:[id number] END OF REPORT [facility] 2022-09-16 07:51:00 [facility] Hospitalist Progress Note REPORT#:[id number] REPORT STATUS: Signed DATE:09/16/22 TIME: 075 PATIENT: KARMA ROWLAND UNIT #: [id number] ROOM/BED: [place] [address] : 61 AGE: 56 SEX: M ATTEND: Mj Vences MD ADM AUTHOR: Wilbert Ramires MD * ALL edits or amendments must be made on the electronic/computer document * Subjective Chief complaint: No acute [...] no JVD Cardiovascular: normal heart sounds, regular rate rhythm Respiratory: aerating well, clear to auscultation Abdomen: non-tender, normal bowel sounds Genitourinary: no bladder distention Extremities: moves all, normal capillary refill Musculoskeletal: normal inspection Neuro/QUANTITATIVE ANALYST: alert, oriented X 3, 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 Considered stroke alert: no Skin: dry, intact Psychiatry: normal affect, normal judgment/insight Results Findings/Data: Laboratory Tests 09/16 09/15 09/15 [...] % (Auto) (14.0 - 32.0 %) 18.6 [place] % (Auto) (4.8 - 9.0 %) 6.7 Eos % (Auto) (0.3 - 3.7 %) 0.2 L Baso % (Auto) (0.0 - 2.0 %) 0.1 Neut # (Auto) (2.0 - 7.6 x10 3/uL) 6.99 Lymph # (Auto) (1.0 - 3.8 x10 3/uL) 1.77 [place] # (Auto) (0.1 - 0.8 x10 3/uL) [...] pH (5.0 - 7.0) 5.0 Ur Specific [place] (1.005 - 1.030) 1.013 Urine Protein (NEGATIVE) [...] 283 Diagnosis, Assessment Plan Consultants: cardiology, endocrinology, hospitalist, infectious disease, podiatry Free Text DxA P Notes Free text DxA P notes: Gangrene of right foot s/p Below- knee amputation Prostate abscess MRSA bacteremia Hx of Diabetes, Diabetic neuropathy HTN ERIKA PLANS: Continue with PT/OT per primary Wound care as directed Hepain PPX IV iron BP improving now with increased dose: Metoprolol to 25 mg BID BS better with insulin adjustment. Likely due to steroids started by Nephrology for AIN pain control creatinine continuint to trend down Hgb trending down as well. no overt bleeding. continue to monitor at 0538 [facility] #:[id number] END OF REPORT [facility] 2022-09-16 07:30:00 [facility] ([facility]) Rehab Progress Note REPORT#:[id number] REPORT STATUS: Signed DATE:09/16/22 TIME: 07 PATIENT: KARMA ROWLAND UNIT #: [id number] ROOM/BED: [place] [address] : 61 AGE: 56 SEX: M ATTEND: jM Vences MD ADM AUTHOR: Mj Vences MD * ALL edits or amendments must be made on the electronic/computer document * Subjective Chief complaint: Rehab follow-up Patient feeling well working with therapy Making good progress Still has edema of BLE and scrotum Eating 75-100% at bedside + BM Denies DICKENS/N/V/D/CP 14 systems reviewed and neg. except that [...] is wearing a nestor-tech orthotic for right knee/BKA protection. Prior to [...] Exam General appearance: alert, awake, no acute distress Psych: alert, normal affect, oriented x 3 HEENT: anicteric, sclera clear Neck: supple, no JVD Cardiovascular: S1/S2, no murmur Respiratory: aerating well, clear bilaterally Abdomen: bowel sounds present, non-distended, soft, non-tender Skin: no rash, R BKA HEALING. 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 Leroy Significant impairment in self-care, ADLs and functional mobility Impaired mobility and gait Acute postoperative pain right BKA Diabetic polyneuropathy DKA, DM 2, poorly controlled, A1c greater than 14 PAD MRSA bacteremia/sepsis-treated on acute ERIKA Severe hyponatremia-resolved HTN Acute on chronic anemia requiring multiple transfusions, possible GI bleed Left calf hematoma Edema and clinical arthritis left ankle Early decubitus to left heel/DTI dorsal left midfoot Prostatic abscess 08/26: S/p transrectal ultrasound aspiration of abscess and transurethral resection of prostate and unroofing of abscess 09/12: Echo: EF 55-59%, grade 1 diastolic dysfunction 09/02: JIMENA negative for vegetation MRSA OF NARES 09/08:s/p EGD and colonoscopy. EGD showed mild gastritis. Colonoscopy showed rectal polyp that was resected by snare (tubular adenoma)-repeat colonoscopy in 5 years Plan: -PLOF: Independent with transfers and gait -Amputee rehab program -Continue PT and OT -15/12 rehabilitation nursing care. -Case management for safe discharge planning. -Decubitus prevention -Early decubitus to left heel/DTI dorsal left midfoot-zinc oxide to the foot, foam, offloading, podiatry managing -DVT prophylaxis-subcutaneous heparin -Strict fall and safety precautions -Work on bed mobility, transfer training, ADLs, pre-gait and gait exercises -Increase endurance and strength -Monitor pain with therapies -OOB to chair -Monitor p.o. intake and nutrition, albumin 1.3, prealbumin less than 5, dietary consultation, protein supplements to promote healing -Diabetes-A1c 14, tight glycemia control- endocrine on board, insulin adjustments -Endocrinology, ID, podiatry, cardiology, IM consulted -Pain management adjusting pain medications -Anemia, patient required multiple units of PRBCs on acute, FOBT positive -IV Protonix-consult GI-serial H H-no evidence of gross bleeding-discussed with Dr. Trinidad -Constipation-abdominal dbucilli-SEE-bgtatz-CW Senokot and MiraLAX, DSP -Right DMM-cgdnzbf-hokirszi resolved, dressings changed qmvzv-jcarkhe-gdxcktdu NESTOR-TECH -MRSA OF NARES on Bactroban protocol -LLE edema-venous Doppler with complex heterogeneous hypoechoic fluid collection in the left calf region measuring 8.4, 2.8, 2.5 cm suggestive of hematoma. On low-dose Lasix. Joan wrap LLE -LE edema could be related to hypoalbuminemia leading to third spacing-edema improving -Generalized edema-some shortness of breath and abdominal distention-cardiology gave a dose of IV Lasix-monitor urine output, daily weights-SOB resolved -09/05-venous Doppler of LLE-negative for DVT-Joan wrap dressing and elevation -Anemia-hemoglobin 8.3, 7.7, 8.2, transfused 2 units of PRBC on 09/05 -09/08: s/p EGD and colonoscopy. EGD showed mild gastritis. Colonoscopy showed rectal polyp that was resected by snare. Anemia likely secondary to chronic kidney disease. Consult renal. -Pathology of polyp came back as tubular adenoma. recommend repeating colonoscopy in 5 years as per GI -Consider video capsule endoscopy as outpt if evidence of dropping H/H -Renal ultrasound negative -09/16/2022 laboratory this morning showed sodium 135, potassium [...] nephrology -Completed Solu-Medrol -Noted LLE swelling (not new) and low albumin. may benefit from albumin infusion + Lasix -CXR-worsening opacities in the right mid and lower lung field. Improved left retrocardiac opacities -BNP 297 -09/12: Echo-EF 55-60%, indeterminate diastolic function parameters as per cardio -09/16: Blood pressure slightly elevated, started on hydralazine 25 mg every 8 hours. Continue carvedilol monitor blood pressure trend. Cr. 2.7 today, continue monitor. Tolerating physical therapy. Euvolemic by physical examination as per cardio. -Advance therapies as tolerated-discussed treatment plan with patient and -Patient progressing well in therapy. Patient with improved transfers and endurance. -Car transfer training 09/23 -Discussed with patient and about renal issues that seem to be improving -Team conference-making good functional progress Progress: ENERGY CONSERVATION, WC MOBILITY, AND BRACE POSITIONING. PATIENT MIN A FOR DONNING SHORTS AND SBA FOR SUPINE TO SIT. PATIENT SET UP/CGA FOR SLIDE BOARD TRANSFER FROM BED TO . PATIENT PROPELLED WC 200 ' X 2 WITH MOD I USING MANUEL UE TO PROPEL. PATIENT TOLERATED SEATED EXERCISE X 20 IN ALL PLANES WITH 3# ANKLE WEIGHT. PATIENT PERFROMED PUSH UP ON WC X [...] Complete Consultants: cardiology, endocrinology, hospitalist, infectious disease, podiatry Rehab attestation: Face to face exam completed. Treatment plan discussed with patient. Meets continued stay criteria. Agree with interdisciplinary treatment plan. at 1503 RPT #:[id number] END OF REPORT [facility] 2022-09-16 05:43:00 [facility] ([facility]) Pain Management Progress Note REPORT#:[id number] REPORT STATUS: Signed DATE:09/16/22 TIME: 542 PATIENT: KARMA ROWLAND UNIT #: [id number] ROOM/BED: [place] [address] : 63 AGE: 56 SEX: M ATTEND: Mj Vences MD ADM AUTHOR: Charlie Quiroga LOG ROPER * ALL edits or amendments must be made on the electronic/computer document * Charlie Quiroga 09/16/22 0543: Subjective [...] fever/chills, chest pain, orthopnea, nausea/vomiting, pruritus, or hallucinations. 14 point ROS undertaken unremarkable except as noted Objective General VS/I O: Vital Signs Date [...] Exam General appearance: alert, awake, oriented, no acute distress Head/eyes: atraumatic, EOMI, normocephalic, normal conjunctiva/sclera, PERRLA ENT: normal ear left, normal ear right, normal nose, normal pharynx, moist mucosal membranes Neck: full range of motion, no lymphadenopathy, supple/no meningismus Cardiovascular: regular rate rhythm Respiratory: clear to auscultation, no distress, aerating well Abdomen: soft, non-tender, no distention, active bowel sounds in all quarants. Abdomen quadrants LLQ normal bowel sounds, LUQ normal bowel sounds, RLQ normal bowel sounds, RUQ normal bowel sounds Extremities: moves all, no edema, pedal pulses Neuro/QUANTITATIVE ANALYST: 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, no sensory deficits, CNII-XII grossly intact Considered stroke alert: no Skin: dry, normal turgor, no rash, warm Psychiatry: normal affect Results Findings/data: Laboratory Tests: 09/15 09/15 09/15 09/15 1937 1640 1304 1154 Chemistry POC Glucose (70 - 110 MG/DL) 124 H 137 H 126 H Urines Urine Color (YEL/STRAW) YELLOW Urine Appearance (CLEAR) SL CLOUDY Urine pH (5.0 - 7.0) 5.0 Ur Specific Cohagen (1.005 - 1.030) 1.013 Urine Protein (NEGATIVE) [...] pain, right foot and ankle gangrene, requiring BKA -Patient is at risk for further amputations or loss of limb due to comorbid conditions -Status post right BKA 08/28/2022 -DC [place] 10/325 1 tablet p.o. every 4 hours as needed pain scale 4 10 -DC Dilaudid 0.5 mg IV daily as needed pain scale 7 10, second line therapy () -Tylenol 650 mg p.o. every 6 hours as needed pain scale 1 3 -Percocet 10/325mg every 4 hours as needed, pain scale 4-10 (09/10) -Lidoderm patch to left ankle daily -IV antibiotics with vancomycin until 09-24-2022 -Local wound care -manageable Diabetic peripheral neuropathy -amitriptyline 25mg PO QHS -Gabapentin 100mg every 8 hours (09/10) -manageable Hypertension -We will monitor hypertension and tachycardia due to pain, and hypotension as well as bradycardia secondary over sedation with narcotics -Hydralazine as needed Elevated LFTs -08/20/22-AST 51, ALT 22 -09/03/2022-AST 15, ALT 7 -Patient will require close monitoring since he is using narcotics with Tylenol Impaired functional mobility, balance, gait, and endurance -PT/OT Antalgic/Impaired gait -PT/OT -Improve strength, endurance, self-care, gait, balance, ADLs -Fall precautions per unit protocol -Pain medications as outlined above Constipation -We will monitor while utilizing opioid narcotic medications. -Adequate fluid intake also discussed. -Colace 100 mg p.o. twice daily as needed -Dulcolax 10 mg rectally daily as needed -Senna lax 8.6mg daily -Miralax 17gm daily -manageable Disposition: Past Medical History: Prostate abscess, right foot foot and ankle gangrene, diabetes, hypertension, hyperlipidemia Past Surgical History: TURP, right BKA Family History: Noncontributory Social History: Denies tobacco, alcohol, or drug use Allergies: NKDA Patient has failed conservative medical therapy. Patient will require monitoring while utilize narcotic medications [...] whom agrees. Thank you for the consultation. [place] ORCHESTRA LEADER: -database searched, no information found Kingsley Ng 10/04/22 1646: Attestations Physician Attestation Agree w/findings plan: The patient was seen and examined by Charlie Quiroga. I personally developed the care plan, which was continued by the mid-level provider. I was immediately available. at 0725 at 2434 RPT #:[id number] END OF REPORT [facility] 2022-09-15 20:52:00 [facility] Podiatry Progress Note REPORT#:[id number] REPORT STATUS: Signed DATE:09/15/22 TIME: 2051 PATIENT: KARMA ROWLAND UNIT #: [id number] ROOM/BED: [place] [address] : 63 AGE: 56 SEX: M ATTEND: Mj Vences MD ADM AUTHOR: Liam Jeffrey DPM * ALL edits or amendments must be made on the electronic/computer document * Subjective Chief complaint: left heel ulcer. left ankle pain Patient reports: no chest pain, no cough, no [...] imported from the dietitian's assessment. BMI Calculated: 26.7 Nutrition related diagnosis: Nutrition diagnosis details: Nutrition problem: Altered nutrition labs Nutrition etiology: DM Nutrition signs and symptoms: HYPER/HYPOGLYCEMIA, A1C >14 Nutrition prescription: CONTINUE DM DIET Dietitian name: You Palmer, DIET Assessment completed: 09/09/22 Physical Exam General appearance: alert, awake, oriented, conversational, mental status normal Wound/incision: Location: [...] pH (5.0 - 7.0) 5.0 Ur Specific Coh[place] (1.005 - 1.030) 1.013 Urine Protein (NEGATIVE) [...] Total Protein (mg/dL) 283 09/15 09/15 0519 0500 Chemistry Sodium (134 - 147 mEq/L) 132 [...] (Auto) (14.0 - 32.0 %) 11.3 L [place] % (Auto) (4.8 - 9.0 %) 3.2 L Eos % (Auto) (0.3 - 3.7 %) 0.0 L Baso % (Auto) (0.0 - 2.0 %) 0.1 Neut # (Auto) (2.0 - 7.6 x10 3/uL) 7.35 Lymph # (Auto) (1.0 - 3.8 x10 3/uL) 0.98 L [place] # (Auto) (0.1 - 0.8 x10 3/uL) [...] 3/uL) 0.00 Diagnosis, Assessment Plan Free Text A P: DM with neuropathy early decub ulcer left heel OA/edema left ankle early ulcer/DTI dorsal left midfoot zinc oxide to foot and heel foam to heel on IV abx on PO gabapentin offloading boot joan wraps to ankle, only when OOB with therapy. zinc oxide interchange with bactroban ( applied to dorsal left midfoot early ulcer) Consultants: cardiology, endocrinology, hospitalist, infectious disease, podiatry at 2052 RPT #:[id number] END OF REPORT [facility] 2022-09-15 17:24:00 [facility] ([facility]) Endocrinology Progress Note REPORT#:[id number] REPORT STATUS: Signed DATE:09/15/22 TIME: 1723 PATIENT: KARMA ROWLAND UNIT #: [id number] ROOM/BED: [place] [address] : 63 AGE: 56 SEX: M ATTEND: Mj Vences MD ADM AUTHOR: Braxton Chapin MD * ALL edits or amendments must be made on the electronic/computer document * Subjective Patient reports: no complaints [...] ML Heparin Sodium (HEPARIN 5000 UNITS/ML) 5,000 UNIT [...] pH (5.0 - 7.0) 5.0 Ur Specific [place] (1.005 - 1.030) 1.013 Urine Protein (NEGATIVE) [...] (Auto) (14.0 - 32.0 %) 11.3 L [place] % (Auto) (4.8 - 9.0 %) 3.2 L Eos % (Auto) (0.3 - 3.7 %) 0.0 L Baso % (Auto) (0.0 - 2.0 %) 0.1 Neut # (Auto) (2.0 - 7.6 x10 3/uL) 7.35 Lymph # (Auto) (1.0 - 3.8 x10 3/uL) 0.98 L [place] # (Auto) (0.1 - 0.8 x10 3/uL) [...] 09/14 09/14 09/14 09/14 09/13 1130 0736 0534 0595 6767 Chemistry Sodium (134 - 147 mEq/L) 132 [...] (Auto) (14.0 - 32.0 %) 13.9 L [place] % (Auto) (4.8 - 9.0 %) 5.1 Eos % (Auto) (0.3 - 3.7 %) 0.0 L Baso % (Auto) (0.0 - 2.0 %) 0.1 Neut # (Auto) (2.0 - 7.6 x10 3/uL) 7.58 Lymph # (Auto) (1.0 - 3.8 x10 3/uL) 1.31 [place] # (Auto) (0.1 - 0.8 x10 3/uL) [...] Laboratory Tests: 09/13 09/13 09/13 09/12 1105 7602 1854 2016 Chemistry Sodium (134 - 147 mEq/L) [...] (Auto) (14.0 - 32.0 %) 10.4 L [place] % (Auto) (4.8 - 9.0 %) 3.5 L Eos % (Auto) (0.3 - 3.7 %) 0.0 L Baso % (Auto) (0.0 - 2.0 %) 0.1 Neut # (Auto) (2.0 - 7.6 x10 3/uL) 8.34 H Lymph # (Auto) (1.0 - 3.8 x10 3/uL) 1.02 [place] # (Auto) (0.1 - 0.8 x10 3/uL) [...] Date/Time Procedure - Status Source Growth 09/13 8276 MRSA DNA Surveillance Screen - RECD NASAL [...] % (Auto) (14.0 - 32.0 %) 15.0 [place] % (Auto) (4.8 - 9.0 %) 7.9 Eos % (Auto) (0.3 - 3.7 %) 3.8 H Baso % (Auto) (0.0 - 2.0 %) 0.3 Neut # (Auto) (2.0 - 7.6 x10 3/uL) 6.34 Lymph # (Auto) (1.0 - 3.8 x10 3/uL) 1.31 [place] # (Auto) (0.1 - 0.8 x10 3/uL) [...] % (Auto) (14.0 - 32.0 %) 16.1 [place] % (Auto) (4.8 - 9.0 %) 9.1 H Eos % (Auto) (0.3 - 3.7 %) 5.6 H Baso % (Auto) (0.0 - 2.0 %) 0.5 Neut # (Auto) (2.0 - 7.6 x10 3/uL) 5.35 Lymph # (Auto) (1.0 - 3.8 x10 3/uL) 1.27 [place] # (Auto) (0.1 - 0.8 x10 3/uL) [...] % (Auto) (14.0 - 32.0 %) 15.5 [place] % (Auto) (4.8 - 9.0 %) 8.5 Eos % (Auto) (0.3 - 3.7 %) 5.5 H Baso % (Auto) (0.0 - 2.0 %) 0.4 Neut # (Auto) (2.0 - 7.6 x10 3/uL) 5.94 Lymph # (Auto) (1.0 - 3.8 x10 3/uL) 1.33 [place] # (Auto) (0.1 - 0.8 x10 3/uL) [...] % (Auto) (14.0 - 32.0 %) 16.1 [place] % (Auto) (4.8 - 9.0 %) 9.2 H Eos % (Auto) (0.3 - 3.7 %) 4.7 H Baso % (Auto) (0.0 - 2.0 %) 0.4 Neut # (Auto) (2.0 - 7.6 x10 3/uL) 6.38 Lymph # (Auto) (1.0 - 3.8 x10 3/uL) 1.49 [place] # (Auto) (0.1 - 0.8 x10 3/uL) [...] (Auto) (14.0 - 32.0 %) 13.7 L [place] % (Auto) (4.8 - 9.0 %) 7.2 Eos % (Auto) (0.3 - 3.7 %) 4.8 H Baso % (Auto) (0.0 - 2.0 %) 0.3 Neut # (Auto) (2.0 - 7.6 x10 3/uL) 6.64 Lymph # (Auto) (1.0 - 3.8 x10 3/uL) 1.24 [place] # (Auto) (0.1 - 0.8 x10 3/uL) [...] abdomen. Impression By: [email or web address] - Roger Parra M.D. ULTRASOUND - DUP VEIN UNI/LTD 09/05 1146 Report Impression - Status: SIGNED Entered: 09/05/2022 1333 IMPRESSION: 1. No evidence of deep vein thrombosis. 2. Complex heterogeneous hypoechoic fluid collection in the left calf region measuring 8.4 x 2.8 x 2.5 cm; there is no internal vascularity or peripheral hyperemia. May represent a hematoma. Impression By: [email or web address] - Mert Ga M.D. RADIOLOGY - XR CHEST 1 V 09/05 1432 Report Impression - Status: SIGNED Entered: 09/05/2022 1515 IMPRESSION: Minimal bibasilar pulmonary opacities Impression By: TipTDO - Bishop Mares M.D. Laboratory [...] COLB STOOL 1.Diabetes mellitus type 2 uncontrolled complications. 2. 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 4. Sepsis 5. Prostate abscess. 6. Anemia Blood sugar 312-309 mg/dL.H/H 8.11/17. Adjust insulin dose. PT and OT. at 1724 RPT #:[id number] END OF REPORT [facility] 2022-09-15 16:24:00 [facility] ([facility] Gastroenterology Progress Note REPORT#:[id number] REPORT STATUS: Signed DATE:09/15/22 TIME: 1624 PATIENT: KARMA ROWLAND UNIT #: [id number] ROOM/BED: [place] [address] : 61 AGE: 56 SEX: M ATTEND: Mj Vences MD ADM AUTHOR: Kassie Avitia MD * ALL edits or amendments must be made on the electronic/computer document * Subjective HPI: Patient is a 56-year-old male with history of diabetes mellitus type 2 and hypertension who was initially admitted for altered mental status and right- sided foot infection. [...] gym. Tolerating diet. Normal BMs. Stable H/H 09/14-Sitting up in wheelchair, family at bedside. Denies [...] years Anemia likely secondary to chronic kidney disease. Can consider video capsule endoscopy as outpt if evidence of dropping H/H H/H remains stable Will follow along Consultants: cardiology, endocrinology, hospitalist, infectious disease, podiatry at 1625 RPT #:[id number] END OF REPORT [facility] 2022-09-15 11:52:00 [facility] ([facility]) Infectious Dis. Progress Note REPORT#:[id number] REPORT STATUS: Signed DATE:09/15/22 TIME: 1152 PATIENT: KARMA ROWLAND UNIT #: [id number] ROOM/BED: [place] [address] : 61 AGE: 56 SEX: M ATTEND: Mj Vences MD ADM AUTHOR: Linda Anderson MD * ALL edits or amendments must be made on the electronic/computer document * Subjective HPI: PT is a [...] 09/12 doing well, working with PT in [facility] Patient reports: No: cough, diarrhea, fever, headache, nausea, shortness [...] 81 18 139/73 95.2 94 Nasal cannula 09/15 1931 97.5 82 18 156/82 106.7 95 Room [...] awake, oriented Head/Eyes: atraumatic, clear cornea, EOMI, normal conjunctiva/sclera, normal eyelids/periorb, normocephalic, PERRL ENT: moist mucosal membranes, normal dentition Neck: full range of motion Cardiovascular: normal heart sounds, regular rate rhythm Respiratory: clear to auscultation, aerating well Abdomen: non-tender, normal bowel sounds, soft Extremities: moves all, right BKA Left foot wound +dressing in place Neuro/QUANTITATIVE ANALYST: alert, oriented X 3 Considered stroke alert: [...] (Auto) (14.0 - 32.0 %) 11.3 L [place] % (Auto) (4.8 - 9.0 %) 3.2 L Eos % (Auto) (0.3 - 3.7 %) 0.0 L Baso % (Auto) (0.0 - 2.0 %) 0.1 Neut # (Auto) (2.0 - 7.6 x10 3/uL) 7.35 Lymph # (Auto) (1.0 - 3.8 x10 3/uL) 0.98 L [place] # (Auto) (0.1 - 0.8 x10 3/uL) [...] (Auto) (14.0 - 32.0 %) 11.3 L [place] % (Auto) (4.8 - 9.0 %) 3.2 L Eos % (Auto) (0.3 - 3.7 %) 0.0 L Baso % (Auto) (0.0 - 2.0 %) 0.1 Neut # (Auto) (2.0 - 7.6 x10 3/uL) 7.35 Lymph # (Auto) (1.0 - 3.8 x10 3/uL) 0.98 L [place] # (Auto) (0.1 - 0.8 x10 3/uL) [...] 0.00 09/14 09/14 09/14 09/14 1130 0736 0542 0834 Chemistry Sodium (134 - 147 mEq/L) 132 [...] (Auto) (14.0 - 32.0 %) 13.9 L [place] % (Auto) (4.8 - 9.0 %) 5.1 Eos % (Auto) (0.3 - 3.7 %) 0.0 L Baso % (Auto) (0.0 - 2.0 %) 0.1 Neut # (Auto) (2.0 - 7.6 x10 3/uL) 7.58 Lymph # (Auto) (1.0 - 3.8 x10 3/uL) 1.31 [place] # (Auto) (0.1 - 0.8 x10 3/uL) [...] Glycol 17 GM DAILY 09/05 09 AC 09/15 PO 10/05 0859 0912 Sennosides [...] 0859 0909 Multivitamins 1 TAB DAILY 09/09 899 AC 09/15 PO 10/09 0859 0911 Dose [...] Prophylaxis Lines: PICC Portions of this section were scribed by Jill Quintero on 09/15/22 at 1152 Diagnosis, Assessment Plan Free Text A P: *MRSA bacteremia -Initial blood cultures from 08/18/2022 positive for MRSA in 2 out of 2 sets. -Repeat blood cultures 08/21/2022 are already positive for MRSA in 2 out of 2 sets, suggesting persistent high-grade bacteremia. -TTE 08/18/2022 negative for any obvious vegetations. -08/28 neg -JIMENA 09/02 neg *Prostatic abscess -s/p transrectal aspiration and unroofing on 08/26 -cx MRSA, citrobacter (r-cefazolin) Enterococcus raffinosus (S-amp,pcn, vancomycin), bacteriodes *ERIKA -nephrology following; worsening *Hyponatremia *Diabetic neuropathy *Diabetes mellitus type 2 *Hypertension *anemia 09/08 -cont on Cefepime and vancomycin til 5/3 for treatment of Prostate abscess -follow esr and crp -EGD today 09/09 -on cefepime and vancomycin til 5/3 for treatment of prostate abscess 09/10 on cefepime and [...] worsening 09/15 on Merrem and Daptomycin til /3 creat still elevated: nephrology following Consultants: cardiology, endocrinology, hospitalist, infectious disease, podiatry Portions of this section were scribed by Jill Quintero on 09/15/22 at 1152 at 2335 RPT #:[id number] END OF REPORT [facility] 2022-09-15 11:03:00 [facility] ([facility]) Hospitalist Progress Note REPORT#:[id number] REPORT STATUS: Signed DATE:09/15/22 TIME: 1103 PATIENT: KARMA ROWLAND UNIT #: [id number] ROOM/BED: [place] [address] : 61 AGE: 56 SEX: M ATTEND: Mj Vences MD ADM AUTHOR: Meera Chavira DO * ALL edits or amendments must be made on the electronic/computer document * Subjective Chief complaint: No acute [...] Exam General appearance: alert, awake, oriented, no acute distress, pleasant, mental status normal, no respiratory distress Head/Eyes: atraumatic, normocephalic ENT: moist mucosal membranes Neck: no JVD Cardiovascular: normal heart sounds, regular rate rhythm Respiratory: aerating well, clear to auscultation Abdomen: non-tender, normal bowel sounds Genitourinary: no bladder distention Extremities: moves all, normal capillary refill Musculoskeletal: normal inspection Neuro/QUANTITATIVE ANALYST: alert, oriented X 3, 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 Considered stroke alert: no Skin: dry, intact Psychiatry: normal affect, normal judgment/insight Results Findings/Data: Laboratory Tests 09/15 09/15 09/14 [...] (Auto) (14.0 - 32.0 %) 11.3 L [place] % (Auto) (4.8 - 9.0 %) 3.2 L Eos % (Auto) (0.3 - 3.7 %) 0.0 L Baso % (Auto) (0.0 - 2.0 %) 0.1 Neut # (Auto) (2.0 - 7.6 x10 3/uL) 7.35 Lymph # (Auto) (1.0 - 3.8 x10 3/uL) 0.98 L [place] # (Auto) (0.1 - 0.8 x10 3/uL) [...] NASAL Diagnosis, Assessment Plan Consultants: cardiology, endocrinology, hospitalist, infectious disease, podiatry Free Text DxA P Notes Free text DxA P notes: Gangrene of right foot s/p Below- knee amputation Prostate abscess MRSA bacteremia Hx of Diabetes, Diabetic neuropathy HTN ERIKA PLANS: Continue with PT/OT per primary Wound care as directed Hepain PPX IV iron BP improving now with increased dose: Metoprolol to 25 mg BID BS better with insulin adjustment. Likely due to steroids started by Nephrology for AIN trend renal function closely Cr trending to 2.9, appreciate Nephrology input pain control at 1105 RPT #:[id number] END OF REPORT [facility] 2022-09-15 09:43:00 [facility] ([facility]) Rehab Progress Note REPORT#:[id number] REPORT STATUS: Signed DATE:09/15/22 TIME: 942 PATIENT: KARMA ROWLAND UNIT #: [id number] ROOM/BED: [place] [address] : 61 AGE: 56 SEX: M ATTEND: Mj Vences MD ADM AUTHOR: Mj Vences MD * ALL edits or amendments must be made on the electronic/computer document * Subjective Chief complaint: Rehab follow-up Doing well, up in wheelchair working with therapy Reports thigh and pelvic area edema Eating 75-100% at bedside + BM Denies DICKENS/N/V/D/CP 14 systems reviewed and neg. except that [...] is wearing a [employer]or-[employer] orthotic for right knee/BKA protection. Prior to [...] Exam General appearance: alert, awake, no acute distress Psych: alert, normal affect, oriented x 3 HEENT: anicteric, sclera clear Neck: supple, no JVD Cardiovascular: S1/S2, no murmur Respiratory: aerating well, clear bilaterally Abdomen: bowel sounds present, non-distended, soft, non-tender Skin: no rash, R BKA HEALING. L ankle/foot wrapped with kerlix Musculoskeletal - general: Musculoskeletal - general: swelling (LLE, calve NT, homans neg), BUE 5/5, LLE 4/5, R hip 3- Neuro/QUANTITATIVE ANALYST: alert, oriented X 3, CNII-XII intact Results [...] (Auto) (14.0 - 32.0 %) 11.3 L [place] % (Auto) (4.8 - 9.0 %) 3.2 L Eos % (Auto) (0.3 - 3.7 %) 0.0 L Baso % (Auto) (0.0 - 2.0 %) 0.1 Neut # (Auto) (2.0 - 7.6 x10 3/uL) 7.35 Lymph # (Auto) (1.0 - 3.8 x10 3/uL) 0.98 L [place] # (Auto) (0.1 - 0.8 x10 3/uL) [...] acute findings. Impression By: Yared Mares M.D. RADIOLOGY - XR CHEST 1 V 09/12 1418 Report Impression - Status: SIGNED Entered: 09/12/20222028 IMPRESSION: Worsening opacities in the right mid and lower lung reyes. Mildly improved left retrocardiac opacities. Impression By: [email or web address] - Abel Browne M.D. 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 Leroy Significant impairment in self-care, ADLs and functional mobility Impaired mobility and gait Acute postoperative pain right BKA Diabetic polyneuropathy DKA, DM 2, poorly controlled, A1c greater than 14 PAD MRSA bacteremia/sepsis-treated on acute ERIKA Severe hyponatremia-resolved HTN Acute on chronic anemia requiring multiple transfusions, possible GI bleed Left calf hematoma Edema and clinical arthritis left ankle Early decubitus to left heel/DTI dorsal left midfoot Prostatic abscess 08/26: S/p transrectal ultrasound aspiration of abscess and transurethral resection of prostate and unroofing of abscess 09/12: Echo: EF 55-59%, grade 1 diastolic dysfunction 09/02: JIMENA negative for vegetation MRSA OF NARES 09/08:s/p EGD and colonoscopy. EGD showed mild gastritis. Colonoscopy showed rectal polyp that was resected by snare (tubular adenoma)-repeat colonoscopy in 5 years Plan: -PLOF: Independent with transfers and gait -Amputee rehab program -Continue PT and OT -15/12 rehabilitation nursing care. -Case management for safe discharge planning. -Decubitus prevention -Early decubitus to left heel/DTI dorsal left midfoot-zinc oxide to the foot, foam, offloading, podiatry managing -DVT prophylaxis-subcutaneous heparin -Strict fall and safety precautions -Work on bed mobility, transfer training, ADLs, pre-gait and gait exercises -Increase endurance and strength -Monitor pain with therapies -OOB to chair -Monitor p.o. intake and nutrition, albumin 1.3, prealbumin less than 5, dietary consultation, protein supplements to promote healing -Diabetes-A1c 14, tight glycemia control- endocrine on board, insulin adjustments -Endocrinology, ID, podiatry, cardiology, IM consulted -Pain management adjusting pain medications -Anemia, patient required multiple units of PRBCs on acute, FOBT positive -IV Protonix-consult GI-serial H H-no evidence of gross bleeding-discussed with Dr. Trinidad -Constipation-abdominal ellrivdl-NPN-mpfvdi-CW Senokot and MiraLAX, DSP -Right CBJ-ytkvhzy-mftpdlwh resolved, dressings changed dtlnq-gtcsnbf-gjbwjmfk NESTOR-TECH -MRSA OF NARES on Bactroban protocol -LLE edema-venous Doppler with complex heterogeneous hypoechoic fluid collection in the left calf region measuring 8.4, 2.8, 2.5 cm suggestive of hematoma. On low-dose Lasix. Joan wrap LLE -LE edema could be related to hypoalbuminemia leading to third spacing-edema improving -Generalized edema-some shortness of breath and abdominal distention-cardiology gave a dose of IV Lasix-monitor urine output, daily weights-SOB resolved -09/05-venous Doppler of LLE-negative for DVT-Joan wrap dressing and elevation -Anemia-hemoglobin 8.3, 7.7, 8.2, transfused 2 units of PRBC on 09/05 -09/08: s/p EGD and colonoscopy. EGD showed mild gastritis. Colonoscopy showed rectal polyp that was resected by snare. Anemia likely secondary to chronic kidney disease. Consult renal. -Pathology of polyp came back as tubular adenoma. recommend repeating colonoscopy in 5 years as per GI -Consider video capsule endoscopy as outpt if evidence of dropping H/H -Renal ultrasound negative -09/15/2022 we will give additional dose of Solu-Medrol 125 mg IV today, laboratory this morning showed sodium 132, potassium 4.7, CO2 17, chloride 105, BUN 38, creatinine 2.9, glucose 312, hemoglobin 8.2, platelet 341, blood count 8.7, needs better blood sugar control, if creatinine does not start improving the next couple days will plan for kidney biopsy-as per renal -on Merrem and Daptomycin til 09/24 as per ID -Lasix discontinued. -On Solu-Medrol -Noted LLE swelling (not new) and low albumin. may benefit from albumin infusion + Lasix -CXR-worsening opacities in the right mid and lower lung field. Improved left retrocardiac opacities -BNP 297 -09/12: Echo-EF 55-60%, indeterminate diastolic function parameters as per cardio -Advance therapies as tolerated-discussed treatment plan with patient and -Patient progressing well in therapy. Patient with improved transfers and endurance. -May need kidney biopsy -Discussed with patient and about renal issues -Team conference-making good functional progress Progress: ENERGY CONSERVATION, WC MOBILITY, AND BRACE POSITIONING. PATIENT MIN A FOR DONNING SHORTS AND SBA FOR SUPINE TO SIT. PATIENT SET UP FOR SLIDE BOARD TRANSFER FROM BED TO WC. PATIENT PROPELLED WC 200 ' X 2 WITH MOD I USING MANUEL UE TO PROPEL. PATIENT TOLERATED SEATED EXERCISE X 20 IN ALL PLANES WITH 3# ANKLE WEIGHT. PATIENT PERFROMED PUSH UP ON WC X [...] reviewed. All questions answered Consultants: cardiology, endocrinology, hospitalist, infectious disease, podiatry Rehab attestation: Face to face exam completed. Treatment plan discussed with patient. Meets continued stay criteria. Agree with interdisciplinary treatment plan. at 1336 RPT #:[id number] END OF REPORT [facility] 2022-09-15 09:41:00 [facility] ([facility]) Cardiology Progress Note REPORT#:[id number] REPORT STATUS: Signed DATE:09/15/22 TIME: 940 PATIENT: KARMA ROWLAND UNIT #: [id number] ROOM/BED: [place] [address] : 63 AGE: 56 SEX: M ATTEND: Mj Vences MD ADM AUTHOR: oRhit Benitez LOG ROPER * ALL edits or amendments must be made on the electronic/computer document * Rohit Benitez 09/15/22 0941: Subjective Chief complaint: weakness Free Text Subj Notes Free Text Subj Notes: Patient seen and evaluated. Chart reviewed. No new [...] regular rate and rhythm, no ectopy, no gallop Respiratory: clear to auscultation, no distress Abdomen: soft, non-tender Lower extremity: LE assessment: edema, normal temperature Neuro/QUANTITATIVE ANALYST: alert, oriented X 3 Considered stroke alert: no Wound/incision: Location: right bka Psychiatry: normal affect, normal judgment/insight, normal mood Results Findings/Data: Laboratory Tests 09/15 [...] (Auto) (14.0 - 32.0 %) 11.3 L [place] % (Auto) (4.8 - 9.0 %) 3.2 L Eos % (Auto) (0.3 - 3.7 %) 0.0 L Baso % (Auto) (0.0 - 2.0 %) 0.1 Neut # (Auto) (2.0 - 7.6 x10 3/uL) 7.35 Lymph # (Auto) (1.0 - 3.8 x10 3/uL) 0.98 L [place] # (Auto) (0.1 - 0.8 x10 3/uL) [...] 1.96 Diagnosis, Assessment Plan Consultants: cardiology, endocrinology, hospitalist, infectious disease, podiatry Free [...] rehab for physical therapy. Known cardiac history of hypertension and hyperlipidemia. Vital signs stable. Echocardiogram with [...] BMP in the morning. Supportive care. Plan of care discussed with [...] Continue hold diuretic for now. Supportive care. Plan of care discussed with patient, RN and Dr. Parham. 09/15: Repeat echocardiogram showed LVEF of 55 to 60%, no regional wall motion abnormalities, left ventricular diastolic function parameters are indeterminate, mildly dilated LA, and no pericardial effusion. BNP elevated 297. Continue to hold diuretic due to Elevated creatinine, nephrology following and may consider renal biopsy. Continue to monitor fluid volume status. Overall improvement in lower extremity with Joan wrap. Continue physical therapy. Supportive care. Plan of care discussed with patient, RN and Dr. Parham. Napoleon Parham 09/18/22 0859: Diagnosis, Assessment Plan Additional comments: Patient was seen and examined at bedside, agree with above assessment and plan as documented by nurse practitioner. Will follow. at 1654 at 0902 RPT #:[id number] END OF REPORT [facility] 2022-09-15 07:33:00 [facility] Nephrology Progress Note REPORT#:[id number] REPORT STATUS: Signed DATE:09/15/22 TIME: 732 PATIENT: KARMA ROWLAND UNIT #: [id number] ROOM/BED: [place] [address] : 63 AGE: 56 SEX: M ATTEND: Mj Vences MD ADM AUTHOR: Barrera Ramírez MD * ALL edits or amendments must be made on the electronic/computer document * Subjective Chief complaint: Infected foot HPI: Patient seen and evaluated on 09/09/2022, note started, [...] change from initial, feels okay. Review of Systems Constitutional: Reports: [...] no edema Musculoskeletal: no CVA tenderness, no tenderness Neuro/QUANTITATIVE ANALYST: alert, 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 Considered stroke alert: no Skin: dry, intact Results Findings/Data: Laboratory Tests 09/15 09/14 09/14 09/14 09/14 0519 1931 1543 1130 0736 Chemistry POC Glucose (70 - 110 MG/DL) 309 H 193 H 60 L 137 H 290 H 09/14 09/14 09/13 09/13 09/13 0526 0525 1936 1629 1105 Chemistry Sodium (134 - 147 [...] L Laboratory Tests 09/14 09/13 09/12 0525 0459 1115 Hematology WBC (4.5 - 11.0 x10 [...] - 32.0 %) 13.9 L 10.4 L [place] % (Auto) (4.8 - 9.0 %) 5.1 3.5 L Eos % (Auto) (0.3 - 3.7 %) 0.0 L 0.0 L Baso % (Auto) (0.0 - 2.0 %) 0.1 0.1 Neut # (Auto) (2.0 - 7.6 x10 3/uL) 7.58 8.34 H Lymph # (Auto) (1.0 - 3.8 x10 3/uL) 1.31 1.02 [place] # (Auto) (0.1 - 0.8 x10 3/uL) [...] Date/Time Procedure - Status Source Growth 09/13 4898 MRSA DNA Surveillance Screen - COMP NASAL Laboratory Tests 09/15 09/14 09/14 09/14 09/14 0519 1931 1543 1130 0736 Chemistry POC Glucose (70 - 110 MG/DL) 309 H 193 H 60 L 137 H 290 H Diagnosis, Assessment Plan Free Text A P: Patient seen and evaluated, discussed with care team, images and laboratories reviewed. Diabetes mellitus: Insulin: Monitor blood sugar closely and adjust medications as needed, followed by endocrinology. Hypertension: Blood pressure is not well controlled, increase Coreg to 12.5 mg p.o. twice daily: Monitor blood pressure closely and adjust medications as needed Right foot gangrene/infection status post right BKA Anemia: Status post EGD and colonoscopy which were negative for active GI bleeding, patient had work-up in July 2022 which showed very high B12, normal folate, very low iron saturation but very high ferritin which was likely related to his infection, likely patient is very iron deficient, will repeat lab and give IV iron if needed. We will check serum immunofixation. Acute kidney injury: We will check renal bladder ultrasound, check postvoid residual, check urine protein creatinine ratio Hypomagnesemia: We will supplement 09/10/2022 laboratory this morning showed sodium 135, potassium 4.2, CO2 21, BUN 25, creatinine 1.9 continues to worsen, etiology unclear, however his development some eosinophilia not sure if he is developing AIN, suggest changing cefepime to a different class of antibiotic if possible, will check renal bladder ultrasound 09/11/2022 laboratory this morning showed sodium 134, potassium 4.3, CO2 22, BUN 26, creatinine 2 up from 1.9, hopefully creatinine is plateauing, renal ultrasound negative. 09/12/2022 laboratory this morning showed sodium 134, potassium 4.2, CO2 20, BUN 31, creatinine 2.4 continues to worsen, discussed with ID, AIN is probably the etiology of the unexplained deterioration of his renal function, antibiotics to be adjusted by infectious disease, will give Solu-Medrol 125 mg IV daily for 3 days. Significant lower extremity edema, will start Lasix 20 mg p.o. twice daily. 09.13.22: pt was seen and examined. Very thirsty. serum creatinine is worsening today. Vancomycin was stopped yesterday and Solu medrol was started. Mild hypovolemic hyponatremia. Will DC lasix and monitor his renal functions. BP is well controlled. 09.14.22: pt was seen and examined. Feels better but still thirsty. I stopped his lasix. will start NS at 75 cc for [...] plan for kidney biopsy Consultants: cardiology, endocrinology, hospitalist, infectious disease, podiatry at 1021 RPT #:[id number] END OF REPORT [facility] 2022-09-15 06:25:00 [facility] ([facility]) Pain Management Progress Note REPORT#:[id number] REPORT STATUS: Signed DATE:09/15/22 TIME: 624 PATIENT: KARMA ROWLAND UNIT #: [id number] ROOM/BED: [place] [address] : 63 AGE: 56 SEX: M ATTEND: Mj Vences MD ADM AUTHOR: Charlie Quiroga LOG ROPER * ALL edits or amendments must be made on the electronic/computer document * Charlie Quiroga 09/15/22 0625: Subjective [...] fever/chills, chest pain, orthopnea, nausea/vomiting, pruritus, or hallucinations. 14 point ROS undertaken unremarkable except as noted Objective General VS/I O: Vital Signs Date Temp Pulse Resp B/P B/P Mean Pulse Ox FiO2 09/14 97.5-97.9 81-82 16-18 139-156/73-82 95.2-106.7 94-95 Last Documented: Result Date Time Pulse Ox 94 09/14 2330 B/P 139/73 09/14 2330 B/P Mean 95.2 09/14 2330 O2 Delivery Nasal cannula 09/14 2330 Temp 97.5 09/14 2330 Pulse 81 09/14 233 Resp 18 09/14 2330 O2 Flow Rate [...] Exam General appearance: alert, awake, oriented, no respiratory distress Head/eyes: atraumatic, EOMI, normocephalic, normal conjunctiva/sclera, PERRLA ENT: normal ear left, normal ear right, normal nose, normal pharynx, moist mucosal membranes Neck: full range of motion, no lymphadenopathy, supple/no meningismus Cardiovascular: regular rate rhythm Respiratory: clear to auscultation, no distress, aerating well Abdomen: soft, non-tender, no distention, active bowel sounds in all quarants. Abdomen quadrants LLQ normal bowel sounds, LUQ normal bowel sounds, RLQ normal bowel sounds, RUQ normal bowel sounds Extremities: moves all, no edema, pedal pulses Neuro/QUANTITATIVE ANALYST: 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, no sensory deficits, CNII-XII grossly intact Considered stroke alert: no [...] pain, right foot and ankle gangrene, requiring BKA -Patient is at risk for further amputations or loss of limb due to comorbid conditions -Status post right BKA 08/28/2022 -DC [place] 10/325 1 tablet p.o. every 4 hours as needed pain scale 4 10 -DC Dilaudid 0.5 mg IV daily as needed pain scale 7 10, second line therapy () -Tylenol 650 mg p.o. every 6 hours as needed pain scale 1 3 -Percocet 10/325mg every 4 hours as needed, pain scale 4-10 (09/10) -Lidoderm patch to left ankle daily -IV antibiotics with vancomycin until 09-24-2022 -Local wound care -manageable Diabetic peripheral neuropathy -amitriptyline 25mg PO QHS -Gabapentin 100mg every 8 hours (09/10) -manageable Hypertension -We will monitor hypertension and tachycardia due to pain, and hypotension as well as bradycardia secondary over sedation with narcotics -Hydralazine as needed Elevated LFTs -08/20/22-AST 51, ALT 22 -09/03/2022-AST 15, ALT 7 -Patient will require close monitoring since he is using narcotics with Tylenol Impaired functional mobility, balance, gait, and endurance -PT/OT Antalgic/Impaired gait -PT/OT -Improve strength, endurance, self-care, gait, balance, ADLs -Fall precautions per unit protocol -Pain medications as outlined above Constipation -We will monitor while utilizing opioid narcotic medications. -Adequate fluid intake also discussed. -Colace 100 mg p.o. twice daily as needed -Dulcolax 10 mg rectally daily as needed -Senna lax 8.6mg daily -Miralax 17gm daily -manageable Disposition: Past Medical History: Prostate abscess, right foot foot and ankle gangrene, diabetes, hypertension, hyperlipidemia Past Surgical History: TURP, right BKA Family History: Noncontributory Social History: Denies tobacco, alcohol, or drug use Allergies: NKDA Patient has failed conservative medical therapy. Patient will require monitoring while utilize narcotic medications [...] whom agrees. Thank you for the consultation. [place] ORCHESTRA LEADER: -database searched, no information found Kingsley Ng 10/04/22 1356: Attestations Physician Attestation Agree w/findings plan: The patient was seen and examined by Charlie Quiroga. I personally developed the care plan, which was continued by the mid-level provider. I was immediately available. at 0708 at 1400 RPT #:[id number] END OF REPORT [facility] 2022-09-14 17:43:00 [facility] Gastroenterology Progress Note REPORT#:[id number] REPORT STATUS: Signed DATE:09/14/22 TIME: 1742 PATIENT: KARMA ROWLAND UNIT #: [id number] ROOM/BED: [place] [address] : 63 AGE: 57 SEX: M ATTEND: Mj Vences MD ADM AUTHOR: Tiara Tillman LOG ROPER * ALL edits or amendments must be made on the electronic/computer document * Tiara Tillman 09/14/22 1743: Subjective HPI: Patient is a 56-year-old male with history of diabetes mellitus type 2 and hypertension who was initially admitted for altered mental status and right- sided foot infection. [...] gym. Tolerating diet. Normal BMs. Stable H/H 09/14-Sitting up in wheelchair, family at bedside. Denies n/v/abd pain/GIB Objective Physical Exam HEENT: [...] years Anemia likely secondary to chronic kidney disease. Can consider video capsule endoscopy as outpt if evidence of dropping H/H Will follow along Consultants: cardiology, endocrinology, hospitalist, infectious disease, podiatry Aleah Trinidad 10/31/22 1409: Diagnosis, Assessment Plan Free Text A P: Case discussed, along with examination and interview with LE Low. I agree with the plan and management as noted. at 1745 at 1409 RPT #:[id number] END OF REPORT [facility] 2022-09-14 15:56:00 [facility] ([facility]) Endocrinology Progress Note REPORT#:[id number] REPORT STATUS: Signed DATE:09/14/22 TIME: 1556 PATIENT: KARMA ROWLAND UNIT #: [id number] ROOM/BED: [place] [address] : 63 AGE: 56 SEX: M ATTEND: Mj Vences MD ADM AUTHOR: Braxton Chapin MD * ALL edits or amendments must be made on the electronic/computer document * Subjective Patient reports: no complaints Objective General VS: Last Documented: Result Date Time Pulse Ox 95 09/14 0734 B/P 150/76 09/14 0734 B/P Mean 101.0 09/14 0734 O2 Delivery Room air 09/14 0734 Temp 36.6 09/14 0734 Pulse 82 09/14 [...] 09/14 09/14 09/14 09/13 1130 0736 0526 0786 1937 Chemistry Sodium (134 - 147 mEq/L) [...] (Auto) (14.0 - 32.0 %) 13.9 L [place] % (Auto) (4.8 - 9.0 %) 5.1 Eos % (Auto) (0.3 - 3.7 %) 0.0 L Baso % (Auto) (0.0 - 2.0 %) 0.1 Neut # (Auto) (2.0 - 7.6 x10 3/uL) 7.58 Lymph # (Auto) (1.0 - 3.8 x10 3/uL) 1.31 [place] # (Auto) (0.1 - 0.8 x10 3/uL) [...] (Auto) (14.0 - 32.0 %) 10.4 L [place] % (Auto) (4.8 - 9.0 %) 3.5 L Eos % (Auto) (0.3 - 3.7 %) 0.0 L Baso % (Auto) (0.0 - 2.0 %) 0.1 Neut # (Auto) (2.0 - 7.6 x10 3/uL) 8.34 H Lymph # (Auto) (1.0 - 3.8 x10 3/uL) 1.02 [place] # (Auto) (0.1 - 0.8 x10 3/uL) [...] % (Auto) (14.0 - 32.0 %) 15.0 [place] % (Auto) (4.8 - 9.0 %) 7.9 Eos % (Auto) (0.3 - 3.7 %) 3.8 H Baso % (Auto) (0.0 - 2.0 %) 0.3 Neut # (Auto) (2.0 - 7.6 x10 3/uL) 6.34 Lymph # (Auto) (1.0 - 3.8 x10 3/uL) 1.31 [place] # (Auto) (0.1 - 0.8 x10 3/uL) [...] % (Auto) (14.0 - 32.0 %) 16.1 [place] % (Auto) (4.8 - 9.0 %) 9.1 H Eos % (Auto) (0.3 - 3.7 %) 5.6 H Baso % (Auto) (0.0 - 2.0 %) 0.5 Neut # (Auto) (2.0 - 7.6 x10 3/uL) 5.35 Lymph # (Auto) (1.0 - 3.8 x10 3/uL) 1.27 [place] # (Auto) (0.1 - 0.8 x10 3/uL) [...] % (Auto) (14.0 - 32.0 %) 15.5 [place] % (Auto) (4.8 - 9.0 %) 8.5 Eos % (Auto) (0.3 - 3.7 %) 5.5 H Baso % (Auto) (0.0 - 2.0 %) 0.4 Neut # (Auto) (2.0 - 7.6 x10 3/uL) 5.94 Lymph # (Auto) (1.0 - 3.8 x10 3/uL) 1.33 [place] # (Auto) (0.1 - 0.8 x10 3/uL) [...] % (Auto) (14.0 - 32.0 %) 16.1 [place] % (Auto) (4.8 - 9.0 %) 9.2 H Eos % (Auto) (0.3 - 3.7 %) 4.7 H Baso % (Auto) (0.0 - 2.0 %) 0.4 Neut # (Auto) (2.0 - 7.6 x10 3/uL) 6.38 Lymph # (Auto) (1.0 - 3.8 x10 3/uL) 1.49 [place] # (Auto) (0.1 - 0.8 x10 3/uL) [...] (Auto) (14.0 - 32.0 %) 13.7 L [place] % (Auto) (4.8 - 9.0 %) 7.2 Eos % (Auto) (0.3 - 3.7 %) 4.8 H Baso % (Auto) (0.0 - 2.0 %) 0.3 Neut # (Auto) (2.0 - 7.6 x10 3/uL) 6.64 Lymph # (Auto) (1.0 - 3.8 x10 3/uL) 1.24 [place] # (Auto) (0.1 - 0.8 x10 3/uL) [...] abdomen. Impression By: [id number] - Roger Parra M.D. ULTRASOUND - [facility] 09/05 1146 Report Impression - Status: SIGNED Entered: 09/05/2022 1333 IMPRESSION: 1. No evidence of deep vein thrombosis. 2. Complex heterogeneous hypoechoic fluid collection in the left calf region measuring 8.4 x 2.8 x 2.5 cm; there is no internal vascularity or peripheral hyperemia. May represent a hematoma. Impression By: [id number] - Mert Ga M.D. RADIOLOGY - XR CHEST 1 V 09/05 1432 Report Impression - Status: SIGNED Entered: 09/05/2022 1515 IMPRESSION: Minimal bibasilar pulmonary opacities Impression By: Yared Mares M.D. Laboratory Tests: 09/04 [...] COLB STOOL 1.Diabetes mellitus type 2 uncontrolled complications. 2. 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 4. Sepsis 5. Prostate abscess. 6. Anemia Blood sugar 385-137 mg/dL.H/H 8.11/17. Adjust insulin dose. PT and OT. at 1557 RPT #:[id number] END OF REPORT [facility] 2022-09-14 15:33:00 [facility] ([facility] Hospitalist Progress Note REPORT#:[id number] REPORT STATUS: Signed DATE:09/14/22 TIME: 1533 PATIENT: KARMA ROWLAND UNIT #: [id number] ROOM/BED: [place] [address] : 61 AGE: 56 SEX: M ATTEND: Mj Vences MD ADM AUTHOR: Meera Chavira DO * ALL edits or amendments must be made on the electronic/computer document * Subjective Chief complaint: BS better [...] Exam General appearance: alert, awake, oriented, no acute distress, pleasant, conversational, mental status normal, no respiratory distress Head/Eyes: atraumatic, normocephalic ENT: moist mucosal membranes Neck: no JVD Cardiovascular: normal heart sounds, regular rate rhythm Respiratory: aerating well, clear to auscultation Abdomen: non-tender, normal bowel sounds Genitourinary: no bladder distention Extremities: moves all, normal capillary refill Musculoskeletal: normal inspection, painless range of motion Neuro/QUANTITATIVE ANALYST: alert, oriented X 3, 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 Considered stroke alert: no Skin: dry, intact Psychiatry: normal affect, normal judgment/insight Results Findings/Data: Laboratory Tests 09/14 09/14 09/14 09/14 09/13 1130 0736 0579 0574 1937 Chemistry Sodium (134 - 147 mEq/L) [...] (Auto) (14.0 - 32.0 %) 13.9 L [place] % (Auto) (4.8 - 9.0 %) 5.1 Eos % (Auto) (0.3 - 3.7 %) 0.0 L Baso % (Auto) (0.0 - 2.0 %) 0.1 Neut # (Auto) (2.0 - 7.6 x10 3/uL) 7.58 Lymph # (Auto) (1.0 - 3.8 x10 3/uL) 1.31 [place] # (Auto) (0.1 - 0.8 x10 3/uL) [...] 0.1 x10 3/uL) 0.00 Diagnosis, Assessment Plan Consultants: cardiology, endocrinology, hospitalist, infectious disease, podiatry Free Text DxA P Notes Free text DxA P notes: Gangrene of right foot s/p Below- knee amputation Prostate abscess MRSA bacteremia Hx of Diabetes, Diabetic neuropathy HTN ERIKA PLANS: Continue with PT/OT per primary Wound care as directed Hepain PPX IV iron BP consistently high, increase Metoprolol to 25 mg BID BS better with insulin adjustment. Likely due to steroids started by Nephrology for AIN trend renal function closely, check BMP in am pain control at 1536 RPT #:[id number] END OF REPORT [facility] 2022-09-14 11:38:00 [facility] ([facility]) Nephrology Progress Note REPORT#:[id number] REPORT STATUS: Signed DATE:09/14/22 TIME: 1138 PATIENT: KARMA ROWLAND UNIT #: [id number] ROOM/BED: [place] [address] : 61 AGE: 56 SEX: M ATTEND: Mj Vences MD ADM AUTHOR: Elodia Neri MD * ALL edits or amendments must be made on the electronic/computer document * Subjective Chief complaint: Infected foot HPI: Patient seen and evaluated on 09/09/2022, note started, [...] Hydromorphone HCl (DILAUDID) 0.5 MG DAILY PRN PRN [...] no edema Musculoskeletal: no CVA tenderness, no tenderness Neuro/QUANTITATIVE ANALYST: alert, 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 Considered stroke alert: no Skin: dry, intact Diagnosis, Assessment Plan Free Text A P: Patient seen and evaluated, discussed with care team, images and laboratories reviewed. Diabetes mellitus: Insulin: Monitor blood sugar closely and adjust medications as needed, followed by endocrinology. Hypertension: Blood pressure is not well controlled, increase Coreg to 12.5 mg p.o. twice daily: Monitor blood pressure closely and adjust medications as needed Right foot gangrene/infection status post right BKA Anemia: Status post EGD and colonoscopy which were negative for active GI bleeding, patient had work-up in July 2022 which showed very high B12, normal folate, very low iron saturation but very high ferritin which was likely related to his infection, likely patient is very iron deficient, will repeat lab and give IV iron if needed. We will check serum immunofixation. Acute kidney injury: We will check renal bladder ultrasound, check postvoid residual, check urine protein creatinine ratio Hypomagnesemia: We will supplement 09/10/2022 laboratory this morning showed sodium 135, potassium 4.2, CO2 21, BUN 25, creatinine 1.9 continues to worsen, etiology unclear, however his development some eosinophilia not sure if he is developing AIN, suggest changing cefepime to a different class of antibiotic if possible, will check renal bladder ultrasound 09/11/2022 laboratory this morning showed sodium 134, potassium 4.3, CO2 22, BUN 26, creatinine 2 up from 1.9, hopefully creatinine is plateauing, renal ultrasound negative. 09/12/2022 laboratory this morning showed sodium 134, potassium 4.2, CO2 20, BUN 31, creatinine 2.4 continues to worsen, discussed with ID, AIN is probably the etiology of the unexplained deterioration of his renal function, antibiotics to be adjusted by infectious disease, will give Solu-Medrol 125 mg IV daily for 3 days. Significant lower extremity edema, will start Lasix 20 mg p.o. twice daily. 23: pt was seen and examined. Very thirsty. serum creatinine is worsening today. Vancomycin was stopped yesterday and Solu medrol was started. Mild hypovolemic hyponatremia. Will DC lasix and monitor his renal functions. BP is well controlled. 23: pt was seen and examined. Feels better but still thirsty. I stopped his lasix. will start NS at 75 cc for one Leter only. serum creatinine is improving. Received three doses of Solu Medrol a well. BP is on the higher side, likely secondary to steroids. will monitor for now. mild hypovelmic hyponatremia. also could be secondary to hyperglycemia. Consultants: cardiology, endocrinology, hospitalist, infectious disease, podiatry at 1140 RPT #:[id number] END OF REPORT [facility] 2022-09-14 10:34:00 [facility]) Podiatry Progress Note REPORT#:[id number] REPORT STATUS: Signed DATE:09/14/22 TIME: 1034 PATIENT: KARMA ROWLAND UNIT #: [id number] ROOM/BED: [place] [address] : 61 AGE: 56 SEX: M ATTEND: Mj Vences MD ADM AUTHOR: Liam Jeffrey DPM * ALL edits or amendments must be made on the electronic/computer document * Subjective Chief complaint: left heel ulcer. left ankle pain Patient reports: no confusion, no cough, no dizziness, no fever, no heartburn, no nausea Objective General VS: Last Documented: Result Date Time Pulse Ox 95 09/14 0734 B/P 150/76 09/14 0734 B/P Mean 101.0 09/14 0734 O2 Delivery Room air 09/14 0734 Temp 36.6 09/14 0734 Pulse 82 09/14 [...] Hydromorphone HCl (DILAUDID) 0.5 MG DAILY PRN PRN [...] imported from the dietitian's assessment. BMI Calculated: 26.7 Nutrition related diagnosis: Nutrition diagnosis details: Nutrition problem: Altered nutrition labs Nutrition etiology: DM Nutrition signs and symptoms: HYPER/HYPOGLYCEMIA, A1C >14 Nutrition prescription: CONTINUE DM DIET [...] Laboratory Tests: 09/14 09/14 09/14 09/13 0736 0507 0556 1939 Chemistry Sodium (134 - 147 mEq/L) 132 [...] (Auto) (14.0 - 32.0 %) 13.9 L [place] % (Auto) (4.8 - 9.0 %) 5.1 Eos % (Auto) (0.3 - 3.7 %) 0.0 L Baso % (Auto) (0.0 - 2.0 %) 0.1 Neut # (Auto) (2.0 - 7.6 x10 3/uL) 7.58 Lymph # (Auto) (1.0 - 3.8 x10 3/uL) 1.31 [place] # (Auto) (0.1 - 0.8 x10 3/uL) [...] IV abx on PO gabapentin offloading boot joan wraps to ankle, only when OOB with therapy. zinc oxide applied to dorsal left midfoot early ulcer Consultants: cardiology, endocrinology, hospitalist, infectious disease, podiatry at 1035 RPT #:[id number] END OF REPORT [facility] 2022-09-14 07:15:00 [facility] ([facility]) Rehab Progress Note REPORT#:[id number] REPORT STATUS: Signed DATE:09/14/22 TIME: 714 PATIENT: KARMA ROWLAND UNIT #: [id number] ROOM/BED: [place] [address] : 61 AGE: 56 SEX: M ATTEND: Mj Vences MD ADM AUTHOR: Guero Candelaria * ALL edits or amendments must be made on the electronic/computer document * Subjective Chief complaint: Rehab follow-up Doing well Reports thigh and pelvic area edema Eating 75-100% at bedside + BM Denies DICKENS/N/V/D/CP 14 systems reviewed and neg. except that [...] is wearing a nestor-tech orthotic for right knee/BKA protection. Prior to [...] Hydromorphone HCl (DILAUDID) 0.5 MG DAILY PRN PRN [...] imported from the dietitian's assessment. BMI Calculated: 26.7 Nutrition related diagnosis: Nutrition diagnosis details: Nutrition problem: Altered nutrition labs Nutrition etiology: DM Nutrition signs and symptoms: HYPER/HYPOGLYCEMIA, A1C >14 Nutrition prescription: CONTINUE DM DIET [...] I, 200 FEET X 2. PATIENT WORKED ON NADEGE X IN WC TO INCREASE LE [...] FOR TRANSFERS AND IMPROVING STANDING IN PARALLEL BARS WITH CGA . Physical Exam General appearance: alert, awake Psych: alert, normal affect, oriented x 3 HEENT: anicteric, sclera clear Neck: supple, no JVD Cardiovascular: S1/S2, no murmur Respiratory: aerating well, clear bilaterally Abdomen: bowel sounds present, non-distended, soft, non-tender Skin: no rash, R BKA HEALING. L ankle/foot wrapped with kerlix Musculoskeletal - general: Musculoskeletal - general: swelling (LLE, calve NT, homans neg), BUE 5/5, LLE 4/5, R hip 3- Neuro/QUANTITATIVE ANALYST: alert, oriented X 3, CNII-XII intact Results Findings/Data: Laboratory Tests 09/14 1629 1105 0543 Chemistry POC Glucose (70 - 110 MG/DL) 334 H 248 H 130 H 307 H 258 H 09/136 1115 1105 Chemistry Sodium (134 - 147 [...] Peptide (0 - 100 PG/ML) 297.0 H 09/1204 0 3 1532 1114 Chemistry Sodium (134 - [...] (14.0 - 32.0 %) 10.4 L 15.0 [place] % (Auto) (4.8 - 9.0 %) 3.5 L 7.9 Eos % (Auto) (0.3 - 3.7 %) 0.0 L 3.8 H Baso % (Auto) (0.0 - 2.0 %) 0.1 0.3 Neut # (Auto) (2.0 - 7.6 x10 3/uL) 8.34 H 6.34 Lymph # (Auto) (1.0 - 3.8 x10 3/uL) 1.02 1.31 [place] # (Auto) (0.1 - 0.8 x10 3/uL) [...] A P: Assessment: 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 Leroy Significant impairment in self-care, ADLs and functional mobility Impaired mobility and gait Acute postoperative pain right BKA Diabetic polyneuropathy DKA, DM 2, poorly controlled, A1c greater than 14 PAD MRSA bacteremia/sepsis-treated on acute ERIKA Severe hyponatremia-resolved HTN Acute on chronic anemia requiring multiple transfusions, possible GI bleed Left calf hematoma Edema and clinical arthritis left ankle Early decubitus to left heel/DTI dorsal left midfoot Prostatic abscess 08/26: S/p transrectal ultrasound aspiration of abscess and transurethral resection of prostate and unroofing of abscess Echo: EF 55-59%, grade 1 diastolic dysfunction 09/02: JIMENA negative for vegetation MRSA OF NARES 09/08:s/p EGD and colonoscopy. EGD showed mild gastritis. Colonoscopy showed rectal polyp that was resected by snare (tubular adenoma)-repeat colonoscopy in 5 years Plan: -PLOF: Independent with transfers and gait -Amputee rehab program -Continue PT and OT -15/12 rehabilitation nursing care. -Case management for safe discharge planning. -Decubitus prevention -Early decubitus to left heel/DTI dorsal left midfoot-zinc oxide to the foot, foam, offloading, podiatry managing -DVT prophylaxis-subcutaneous heparin -Strict fall and safety precautions -Work on bed mobility, transfer training, ADLs, pre-gait and gait exercises -Increase endurance and strength -Monitor pain with therapies -OOB to chair -Monitor p.o. intake and nutrition, albumin 1.3, prealbumin less than 5, dietary consultation, protein supplements to promote healing -Diabetes-A1c 14, tight glycemia control- endocrine on board, insulin adjustments -Endocrinology, ID, podiatry, cardiology, IM consulted -Pain management adjusting pain medications -Anemia, patient required multiple units of PRBCs on acute, FOBT positive -IV Protonix-consult GI-serial H H-no evidence of gross bleeding-discussed with Dr. Trinidad -Constipation-abdominal mblygclj-NNX-ifprmo-CW Senokot and MiraLAX, DSP -Right ORJ-cggblnk-egffmgwm resolved, dressings changed kanvl-btpibcm-gucqroae NESTOR-TECH -MRSA OF NARES on Bactroban protocol -LLE edema-venous Doppler with complex heterogeneous hypoechoic fluid collection in the left calf region measuring 8.4, 2.8, 2.5 cm suggestive of hematoma. On low-dose Lasix. Joan wrap LLE -LE edema could be related to hypoalbuminemia leading to third spacing-edema improving -Generalized edema-some shortness of breath and abdominal distention-cardiology gave a dose of IV Lasix-monitor urine output, daily weights-SOB resolved -09/05-venous Doppler of LLE-negative for DVT-Joan wrap dressing and elevation -Anemia-hemoglobin 8.3, 7.7, transfused 2 units of PRBC on 09/05 -09/08: s/p EGD and colonoscopy. EGD showed mild gastritis. Colonoscopy showed rectal polyp that was resected by snare. Anemia likely secondary to chronic kidney disease. Consult renal. -Pathology of polyp came back as tubular adenoma. recommend repeating colonoscopy in 5 years as per GI -Consider video capsule endoscopy as outpt if evidence of dropping H/H -Renal ultrasound negative -09/12/2022 laboratory this morning showed sodium 134, potassium [...] Solu-Medrol x3 doses -Noted LLE swelling (not new) and low albumin. may benefit from albumin infusion + Lasix -CXR, BNP and Echo per cardiology -Advance therapies as tolerated-discussed treatment plan with patient and -Patient progressing with therapies, requires multiple rest breaks. PM R Please see team [...] Face to face exam completed. Treatment plan discussed with patient. Meets continued stay criteria. Agree with interdisciplinary treatment plan. at 2016 RPT #:[id number] END OF REPORT [facility] 2022-09-14 06:12:00 [facility] ([facility]) Pain Management Progress Note REPORT#:[id number] REPORT STATUS: Signed DATE:09/14/22 TIME: 611 PATIENT: KARMA ROWLAND UNIT #: [id number] ROOM/BED: [place] [address] : 61 AGE: 56 SEX: M ATTEND: Mj Vences MD ADM AUTHOR: Charlie Quiroga LOG ROPER * ALL edits or amendments must be made on the electronic/computer document * Charlie Quiroga 09/14/22 0612: Subjective [...] fever/chills, chest pain, orthopnea, nausea/vomiting, pruritus, or hallucinations. 14 point ROS undertaken unremarkable except as noted Objective General VS/I O: Vital Signs Date [...] Hydromorphone HCl (DILAUDID) 0.5 MG DAILY PRN PRN [...] Physical Exam General appearance: alert, awake, oriented, mental status normal Head/eyes: atraumatic, EOMI, normocephalic, normal conjunctiva/sclera, PERRLA ENT: normal ear left, normal ear right, normal nose, normal pharynx, moist mucosal membranes Neck: full range of motion, no lymphadenopathy, supple/no meningismus Cardiovascular: regular rate rhythm Respiratory: clear to auscultation, no distress, aerating well Abdomen: soft, non-tender, no distention, active bowel sounds in all quarants. Abdomen quadrants LLQ normal bowel sounds, LUQ normal bowel sounds, RLQ normal bowel sounds, RUQ normal bowel sounds Extremities: moves all, no edema, pedal pulses Neuro/QUANTITATIVE ANALYST: 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, no sensory deficits, CNII-XII grossly intact Considered stroke alert: no [...] pain, right foot and ankle gangrene, requiring BKA -Patient is at risk for further amputations or loss of limb due to comorbid conditions -Status post right BKA 08/28/2022 -DC [place] 10/325 1 tablet p.o. every 4 hours as needed pain scale 4 10 -DC Dilaudid 0.5 mg IV daily as needed pain scale 7 10, second line therapy () -Tylenol 650 mg p.o. every 6 hours as needed pain scale 1 3 -Percocet 10/325mg every 4 hours as needed, pain scale 4-10 (09/10) -Lidoderm patch to left ankle daily -IV antibiotics with vancomycin until 09-24-2022 -Local wound care -manageable Diabetic peripheral neuropathy -amitriptyline 25mg PO QHS -Gabapentin 100mg every 8 hours (09/10) -manageable Hypertension -We will monitor hypertension and tachycardia due to pain, and hypotension as well as bradycardia secondary over sedation with narcotics -Hydralazine as needed Elevated LFTs -08/20/22-AST 51, ALT 22 -09/03/2022-AST 15, ALT 7 -Patient will require close monitoring since he is using narcotics with Tylenol Impaired functional mobility, balance, gait, and endurance -PT/OT Antalgic/Impaired gait -PT/OT -Improve strength, endurance, self-care, gait, balance, ADLs -Fall precautions per unit protocol -Pain medications as outlined above Constipation -We will monitor while utilizing opioid narcotic medications. -Adequate fluid intake also discussed. -Colace 100 mg p.o. twice daily as needed -Dulcolax 10 mg rectally daily as needed -Senna lax 8.6mg daily -Miralax 17gm daily -manageable Disposition: Past Medical History: Prostate abscess, right foot foot and ankle gangrene, diabetes, hypertension, hyperlipidemia Past Surgical History: TURP, right BKA Family History: Noncontributory Social History: Denies tobacco, alcohol, or drug use Allergies: NKDA Patient has failed conservative medical therapy. Patient will require monitoring while utilize narcotic medications [...] whom agrees. Thank you for the consultation. [place] ORCHESTRA LEADER: -database searched, no information found Kingsley Ng 10/04/22 1309: Attestations Physician Attestation Agree w/findings plan: The patient was seen and examined by Charlie Quiroga. I personally developed the care plan, which was continued by the mid-level provider. I was immediately available. at 0741 at 1318 RPT #:[id number] END OF REPORT [facility] 2022-09-13 16:50:00 [facility] Endocrinology Progress Note REPORT#:[id number] REPORT STATUS: Signed DATE:09/13/22 TIME: 1650 PATIENT: KARMA ROWLAND UNIT #: [id number] ROOM/BED: [place] [address] : 61 AGE: 56 SEX: M ATTEND: Mj Vences MD ADM AUTHOR: Braxton Chapin MD * ALL edits or amendments must be made on the electronic/computer document * Subjective Patient reports: no complaints [...] Hydromorphone HCl (DILAUDID) 0.5 MG DAILY PRN PRN [...] date: Laboratory Tests: 09/13 09/13 09/13 09/12 1103 0548 3374 2016 Chemistry Sodium (134 - 147 mEq/L) [...] (Auto) (14.0 - 32.0 %) 10.4 L [place] % (Auto) (4.8 - 9.0 %) 3.5 L Eos % (Auto) (0.3 - 3.7 %) 0.0 L Baso % (Auto) (0.0 - 2.0 %) 0.1 Neut # (Auto) (2.0 - 7.6 x10 3/uL) 8.34 H Lymph # (Auto) (1.0 - 3.8 x10 3/uL) 1.02 [place] # (Auto) (0.1 - 0.8 x10 3/uL) [...] Date/Time Procedure - Status Source Growth 09/13 7171 MRSA DNA Surveillance Screen - RECD NASAL [...] % (Auto) (14.0 - 32.0 %) 15.0 [place] % (Auto) (4.8 - 9.0 %) 7.9 Eos % (Auto) (0.3 - 3.7 %) 3.8 H Baso % (Auto) (0.0 - 2.0 %) 0.3 Neut # (Auto) (2.0 - 7.6 x10 3/uL) 6.34 Lymph # (Auto) (1.0 - 3.8 x10 3/uL) 1.31 [place] # (Auto) (0.1 - 0.8 x10 3/uL) [...] % (Auto) (14.0 - 32.0 %) 16.1 [place] % (Auto) (4.8 - 9.0 %) 9.1 H Eos % (Auto) (0.3 - 3.7 %) 5.6 H Baso % (Auto) (0.0 - 2.0 %) 0.5 Neut # (Auto) (2.0 - 7.6 x10 3/uL) 5.35 Lymph # (Auto) (1.0 - 3.8 x10 3/uL) 1.27 [place] # (Auto) (0.1 - 0.8 x10 3/uL) [...] % (Auto) (14.0 - 32.0 %) 15.5 [place] % (Auto) (4.8 - 9.0 %) 8.5 Eos % (Auto) (0.3 - 3.7 %) 5.5 H Baso % (Auto) (0.0 - 2.0 %) 0.4 Neut # (Auto) (2.0 - 7.6 x10 3/uL) 5.94 Lymph # (Auto) (1.0 - 3.8 x10 3/uL) 1.33 [place] # (Auto) (0.1 - 0.8 x10 3/uL) [...] x10 3/uL) Toxicology Random Vancomycin (mcg/mL) 15.7 19 09/09 0541 3661 Chemistry POC Glucose (70 - 110 MG/DL) [...] % (Auto) (14.0 - 32.0 %) 16.1 [place] % (Auto) (4.8 - 9.0 %) 9.2 H Eos % (Auto) (0.3 - 3.7 %) 4.7 H Baso % (Auto) (0.0 - 2.0 %) 0.4 Neut # (Auto) (2.0 - 7.6 x10 3/uL) 6.38 Lymph # (Auto) (1.0 - 3.8 x10 3/uL) 1.49 [place] # (Auto) (0.1 - 0.8 x10 3/uL) [...] (Auto) (14.0 - 32.0 %) 13.7 L [place] % (Auto) (4.8 - 9.0 %) 7.2 Eos % (Auto) (0.3 - 3.7 %) 4.8 H Baso % (Auto) (0.0 - 2.0 %) 0.3 Neut # (Auto) (2.0 - 7.6 x10 3/uL) 6.64 Lymph # (Auto) (1.0 - 3.8 x10 3/uL) 1.24 [place] # (Auto) (0.1 - 0.8 x10 3/uL) [...] abdomen. Impression By: [id number] - Roger Parra M.D. ULTRASOUND - DUP VEIN UNI/LTD 09/05 1146 Report Impression - Status: SIGNED Entered: 09/05/2022 1333 IMPRESSION: 1. No evidence of deep vein thrombosis. 2. Complex heterogeneous hypoechoic fluid collection in the left calf region measuring 8.4 x 2.8 x 2.5 cm; there is no internal vascularity or peripheral hyperemia. May represent a hematoma. Impression By: [id number] - Mert Ga M.D. RADIOLOGY - XR CHEST 1 V 09/05 1432 Report Impression - Status: SIGNED Entered: 09/05/2022 1515 IMPRESSION: Minimal bibasilar pulmonary opacities Impression By: TipTDO - Bishop Mares M.D. Laboratory [...] COLB STOOL 1.Diabetes mellitus type 2 uncontrolled complications. 2. 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 4. Sepsis 5. Prostate abscess. 6. Anemia Blood sugar 241-307 mg/dL.H/H 8.11/17. Adjust insulin dose. PT and OT. at 1651 RPT #:[id number] END OF REPORT [facility] 2022-09-13 16:00:00 [facility]) Podiatry Progress Note REPORT#:[id number] REPORT STATUS: Signed DATE:09/13/22 TIME: 1600 PATIENT: KARMA ROWLAND UNIT #: [id number] ROOM/BED: [place] [address] : 61 AGE: 56 SEX: M ATTEND: Mj Vences MD ADM AUTHOR: Liam Jeffrey DPM * ALL edits or amendments must be made on the electronic/computer document * Subjective Chief complaint: left heel ulcer. left ankle pain Patient reports: no confusion, no diarrhea, no dizziness, [...] Hydromorphone HCl (DILAUDID) 0.5 MG DAILY PRN PRN [...] imported from the dietitian's assessment. BMI Calculated: 26.7 Nutrition related diagnosis: Nutrition diagnosis details: Nutrition problem: Altered nutrition labs Nutrition etiology: DM Nutrition signs and symptoms: HYPER/HYPOGLYCEMIA, A1C >14 Nutrition prescription: CONTINUE DM DIET [...] IV abx on PO gabapentin offloading boot joan wraps to ankle, only when OOB with therapy. zinc oxide applied to dorsal left midfoot early ulcer Consultants: cardiology, endocrinology, hospitalist, infectious disease, podiatry at 1601 RPT #:[id number] END OF REPORT [facility] 2022-09-13 15:53:00 [facility] Nephrology Progress Note REPORT#:[id number] REPORT STATUS: Signed DATE:09/13/22 TIME: 1553 PATIENT: KARMA ROWLAND UNIT #: [id number] ROOM/BED: [facility] : 61 AGE: 56 SEX: M ATTEND: Mj Vences MD ADM AUTHOR: Elodia Neri MD * ALL edits or amendments must be made on the electronic/computer document * Subjective Chief complaint: Infected foot HPI: Patient seen and evaluated on 09/09/2022, note started, [...] I O ending at 0700: 09/13 0700 04/21 1900 Intake Total 720 Output Total 1000 [...] Hydromorphone HCl (DILAUDID) 0.5 MG DAILY PRN PRN [...] no edema Musculoskeletal: no CVA tenderness, no tenderness Neuro/QUANTITATIVE ANALYST: alert, 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 Considered stroke alert: no Skin: dry, intact Diagnosis, Assessment Plan Free Text A P: Patient seen and evaluated, discussed with care team, images and laboratories reviewed. Diabetes mellitus: Insulin: Monitor blood sugar closely and adjust medications as needed, followed by endocrinology. Hypertension: Blood pressure is not well controlled, increase Coreg to 12.5 mg p.o. twice daily: Monitor blood pressure closely and adjust medications as needed Right foot gangrene/infection status post right BKA Anemia: Status post EGD and colonoscopy which were negative for active GI bleeding, patient had work-up in July 2022 which showed very high B12, normal folate, very low iron saturation but very high ferritin which was likely related to his infection, likely patient is very iron deficient, will repeat lab and give IV iron if needed. We will check serum immunofixation. Acute kidney injury: We will check renal bladder ultrasound, check postvoid residual, check urine protein creatinine ratio Hypomagnesemia: We will supplement 09/10/2022 laboratory this morning showed sodium 135, potassium 4.2, CO2 21, BUN 25, creatinine 1.9 continues to worsen, etiology unclear, however his development some eosinophilia not sure if he is developing AIN, suggest changing cefepime to a different class of antibiotic if possible, will check renal bladder ultrasound 09/11/2022 laboratory this morning showed sodium 134, potassium 4.3, CO2 22, BUN 26, creatinine 2 up from 1.9, hopefully creatinine is plateauing, renal ultrasound negative. 09/12/2022 laboratory this morning showed sodium 134, potassium 4.2, CO2 20, BUN 31, creatinine 2.4 continues to worsen, discussed with ID, AIN is probably the etiology of the unexplained deterioration of his renal function, antibiotics to be adjusted by infectious disease, will give Solu-Medrol 125 mg IV daily for 3 days. Significant lower extremity edema, will start Lasix 20 mg p.o. twice daily. 09.13.22: pt was seen and examined. Very thirsty. serum creatinine is worsening today. Vancomycin was stopped yesterday and Solu medrol was started. Mild hypovolemic hyponatremia. Will DC lasix and monitor his renal functions. BP is well controlled. Consultants: cardiology, endocrinology, hospitalist, infectious disease, podiatry at 1556 RPT #:[id number] END OF REPORT [facility] 2022-09-13 15:16:00 [facility] Hospitalist Progress Note REPORT#:[id number] REPORT STATUS: Signed DATE:09/13/22 TIME: 1516 PATIENT: KARMA ROWLAND UNIT #: [id number] ROOM/BED: [place] [address] : 61 AGE: 56 SEX: M ATTEND: Mj Vences MD ADM AUTHOR: Meera Chavira DO * ALL edits or amendments must be made on the electronic/computer document * Subjective Chief complaint: Pt notes [...] Hydromorphone HCl (DILAUDID) 0.5 MG DAILY PRN PRN [...] Exam General appearance: alert, awake, oriented, no acute distress, pleasant, conversational, mental status normal, no respiratory distress Head/Eyes: atraumatic, normocephalic ENT: moist mucosal membranes Neck: no JVD Cardiovascular: normal heart sounds, regular rate rhythm Respiratory: aerating well, clear to auscultation Abdomen: non-tender, normal bowel sounds Genitourinary: no bladder distention Extremities: moves all, normal capillary refill Musculoskeletal: normal inspection, painless range of motion Neuro/QUANTITATIVE ANALYST: alert, oriented X 3, 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 Considered stroke alert: no Skin: dry, intact Psychiatry: normal affect, normal judgment/insight Results Findings/Data: Laboratory Tests 09/13 09/13 09/13 09/12 09/12 1105 0541 5410 2016 1606 Chemistry Sodium (134 - 147 [...] (Auto) (14.0 - 32.0 %) 10.4 L [place] % (Auto) (4.8 - 9.0 %) 3.5 L Eos % (Auto) (0.3 - 3.7 %) 0.0 L Baso % (Auto) (0.0 - 2.0 %) 0.1 Neut # (Auto) (2.0 - 7.6 x10 3/uL) 8.34 H Lymph # (Auto) (1.0 - 3.8 x10 3/uL) 1.02 [place] # (Auto) (0.1 - 0.8 x10 3/uL) [...] 0.1 x10 3/uL) 0.00 Diagnosis, Assessment Plan Consultants: cardiology, endocrinology, hospitalist, infectious disease, podiatry Free Text DxA P Notes Free text DxA P notes: Gangrene of right foot s/p Below- knee amputation Prostate abscess MRSA bacteremia Hx of Diabetes, [...] closely, check labs in am pain control at 1520 RPT #:[id number] END OF REPORT [facility] 2022-09-13 15:08:00 [id number] [place] [address] PATIENT NAME: KARMA ROWLAND ADMIT DATE: 09/02/22 ACCOUNT NO: [id number] ROOM NO: G.537 AGE: 56 REPORT TYPE: eECHOCARDIOGRAM REPORT SEX: M ADMITTING PHYSICIAN:Mj Vences MD ATTENDING PHYSICIAN:Mj Vences MD *[place] [address] Limited Transthoracic Echocardiogram Patient: Karma Rowland Study Date: 09/12/2022 BP: 136 / 76 Location: [facility] URN: [id number] : 1965 Age: 56 Height: 66 in / 167.6 cm Gender: M Weight: 164.7 lb / 74.8 kg BMI/BSA: 26.6 kg/m 2 / 1.88 m 2 *Ordering Physician: * Rohit BenitezInterpreting Physician: * Napoleon Parham MD *Communications Strategist: * HÉCTOR Ivy ------ Indications: EVAL LV SYSTOLIC/DIASTOLIC FUNCTION. ------ Study data: Transthoracic echocardiogram, limited study. Procedure: Transthoracic echocardiography was performed. Images were obtained using a [employer] cardiac ultrasound machine. Image quality was good. Limited 2D and limited spectral Doppler. Location: Bedside. Patient status: Inpatient. Patient room number: 537. Study status: Routine. ------ Findings Left ventricle: The cavity size is normal. Wall thickness is increased. Systolic function is normal. The estimated ejection fraction is 55-60%. Wall motion is normal; there are no regional wall motion abnormalities. Left ventricular diastolic function parameters are indeterminate. Left atrium: The atrium is mildly dilated. PATIENT NAME: KARMA ROWLAND Right atrium: The atrium is normal in size. Aorta: Aortic root: The aortic root is normal in size. Aortic valve: The valve is structurally normal. The valve is trileaflet. Mitral valve: The valve is structurally normal. There is no evidence of stenosis. There is trivial regurgitation. Tricuspid valve: The valve is structurally normal. There is no regurgitation. Pericardium: There is no pericardial effusion. Systemic veins: Inferior vena cava: The vessel is normal in size. The respirophasic diameter changes are in the normal range (= 50%). ------ Measurements Left ventricle Value Ref SAMANTHA, LAX [...] 1.06 m/sec --------- PATIENT NAME: KARMA ROWLAND Mean v, D 0.82 [...] Root diam, ED MM 3.46 cm --------- ------ Conclusions Summary: 1. Left ventricle: The cavity size is normal. Wall thickness is increased. Systolic function is normal. The estimated ejection fraction is 55-60%. Wall motion is normal; there are no regional wall motion abnormalities. Left ventricular diastolic function parameters are indeterminate. 2. Left atrium: The atrium is mildly dilated. 3. Pericardium, extracardiac: There is no pericardial effusion. Prepared and electronically signed by Napoleon Parham MD 09/13/2022 15:08 at 1508 PATIENT NAME: KARMA ROWLAND [facility] 2022-09-13 07:46:00 [facility] ([facility]) Pain Management Progress Note REPORT#:[id number] REPORT STATUS: Signed DATE:09/13/22 TIME: 0746 PATIENT: KARMA ROWLAND UNIT #: [id number] ROOM/BED: 53-1 : 63 AGE: 56 SEX: M ATTEND: Mj Vences MD ADM AUTHOR: Charlie Quiroga LOG ROPER * ALL edits or amendments must be made on the electronic/computer document * Subjective Chief complaint: Patient seen [...] fever/chills, chest pain, orthopnea, nausea/vomiting, pruritus, or hallucinations. 14 point ROS undertaken unremarkable except as noted Objective General VS/I O: Vital Signs Date Temp Pulse Resp B/P B/P Mean Pulse Ox FiO2 09/12-09/13 97.5-98.4 80-86 18 146-157/74-80 98.7-105.3 93-97 Last Documented: Result Date Time Pulse Ox 97 09/13 0658 B/P 146/79 09/13 0658 B/P Mean 101.3 09/13 0658 O2 Delivery Room air 09/13 0658 Temp 98.4 09/13 0658 Pulse 80 09/13 [...] Hydromorphone HCl (DILAUDID) 0.5 MG DAILY PRN PRN [...] Exam General appearance: alert, awake, oriented, no acute distress Head/eyes: atraumatic, EOMI, normocephalic, normal conjunctiva/sclera, PERRLA ENT: normal ear left, normal ear right, normal nose, normal pharynx, moist mucosal membranes Neck: full range of motion, no lymphadenopathy, supple/no meningismus Cardiovascular: regular rate rhythm Respiratory: clear to auscultation, no distress, aerating well Abdomen: soft, non-tender, no distention, active bowel sounds in all quarants. Abdomen quadrants LLQ normal bowel sounds, LUQ normal bowel sounds, RLQ normal bowel sounds, RUQ normal bowel sounds Extremities: moves all, no edema, pedal pulses Neuro/QUANTITATIVE ANALYST: 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, no sensory deficits, CNII-XII grossly intact Considered stroke alert: no Skin: dry, normal color, normal turgor Psychiatry: normal affect Results Findings/data: Laboratory Tests: 09/13 09/13 09/12 09/12 09/12 0543 0455 2016 1606 1115 Chemistry Sodium (134 - 147 [...] pain, right foot and ankle gangrene, requiring BKA -Patient is at risk for further amputations or loss of limb due to comorbid conditions -Status post right BKA 08/28/2022 -DC [place] 10/325 1 tablet p.o. every 4 hours as needed pain scale 4 10 -Tylenol 650 mg p.o. every 6 hours as needed pain scale 1 3 -DC Dilaudid 0.5 mg [...] Hypertension -We will monitor hypertension and tachycardia due to pain, and hypotension as well as bradycardia secondary over sedation with narcotics -Hydralazine as needed Elevated LFTs -08/20/22-AST 51, ALT 22 -09/03/2022-AST 15, ALT 7 -Patient will require close monitoring since he is using narcotics with Tylenol Impaired functional mobility, balance, gait, and endurance -PT/OT Antalgic/Impaired gait -PT/OT -Improve strength, endurance, self-care, gait, balance, ADLs -Fall precautions per unit protocol -Pain medications as outlined above Constipation -We will monitor while utilizing opioid narcotic medications. -Adequate fluid intake also discussed. -Colace 100 mg p.o. twice daily as needed -Dulcolax 10 mg rectally daily as needed -Senna lax 8.6mg daily -Miralax 17gm daily -manageable Disposition: Past Medical History: Prostate abscess, right foot foot and ankle gangrene, diabetes, hypertension, hyperlipidemia Past Surgical History: TURP, right BKA Family History: Noncontributory Social History: Denies tobacco, alcohol, or drug use Allergies: NKDA Patient has failed conservative medical therapy. Patient will require monitoring while utilize narcotic medications [...] whom agrees. Thank you for the consultation. [place] ORCHESTRA LEADER: -database searched, no information found at 1453 at 1149 RPT #:[id number] END OF REPORT [facility] 2022-09-13 06:34:00 [facility] Rehab Progress Note REPORT#:[id number] REPORT STATUS: Signed DATE:09/13/22 TIME: 633 PATIENT: KARMA ROWLAND UNIT #: [id number] ROOM/BED: [place] [address] : 63 AGE: 56 SEX: M ATTEND: Mj Vences MD ADM AUTHOR: Guero Candelaria * ALL edits or amendments must be made on the electronic/computer document * Subjective Chief complaint: Rehab follow-up Doing well Reports thigh and pelvic area edema Eating 75-100% at bedside + BM Denies DICKENS/N/V/D/CP 14 systems reviewed and neg. except that [...] is wearing a nestor-tech orthotic for right knee/BKA protection. Prior to [...] Hydromorphone HCl (DILAUDID) 0.5 MG DAILY PRN PRN [...] I, 200 FEET X 2. PATIENT WORKED ON NADEGE X IN WC TO INCREASE LE [...] FOR TRANSFERS AND IMPROVING STANDING IN PARALLEL BARS WITH CGA . Physical Exam General appearance: alert, awake Psych: alert, normal affect, oriented x 3 HEENT: anicteric, sclera clear Neck: supple, no JVD Cardiovascular: S1/S2, no murmur Respiratory: aerating well, clear bilaterally Abdomen: bowel sounds present, non-distended, soft, non-tender Skin: no rash, R BKA HEALING. 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 Leroy Significant impairment in self-care, ADLs and functional mobility Impaired mobility and gait Acute postoperative pain right BKA Diabetic polyneuropathy DKA, DM 2, poorly controlled, A1c greater than 14 PAD MRSA bacteremia/sepsis-treated on acute ERIKA Severe hyponatremia-resolved HTN Acute on chronic anemia requiring multiple transfusions, possible GI bleed Left calf hematoma Edema and clinical arthritis left ankle Early decubitus to left heel/DTI dorsal left midfoot Prostatic abscess 08/26: S/p transrectal ultrasound aspiration of abscess and transurethral resection of prostate and unroofing of abscess Echo: EF 55-59%, grade 1 diastolic dysfunction 09/02: JIMENA negative for vegetation MRSA OF NARES 09/08:s/p EGD and colonoscopy. EGD showed mild gastritis. Colonoscopy showed rectal polyp that was resected by snare (tubular adenoma)-repeat colonoscopy in 5 years Plan: -PLOF: Independent with transfers and gait -Amputee rehab program -Continue PT and OT -15/12 rehabilitation nursing care. -Case management for safe discharge planning. -Decubitus prevention -Early decubitus to left heel/DTI dorsal left midfoot-zinc oxide to the foot, foam, offloading, podiatry managing -DVT prophylaxis-subcutaneous heparin -Strict fall and safety precautions -Work on bed mobility, transfer training, ADLs, pre-gait and gait exercises -Increase endurance and strength -Monitor pain with therapies -OOB to chair -Monitor p.o. intake and nutrition, albumin 1.3, prealbumin less than 5, dietary consultation, protein supplements to promote healing -Diabetes-A1c 14, tight glycemia control- endocrine on board, insulin adjustments -Endocrinology, ID, podiatry, cardiology, IM consulted -Pain management adjusting pain medications -Anemia, patient required multiple units of PRBCs on acute, FOBT positive -IV Protonix-consult GI-serial H H-no evidence of gross bleeding-discussed with Dr. Trinidad -Constipation-abdominal wagtaxpk-RJU-vmzppe-CW Senokot and MiraLAX, DSP -Right ONC-fwsaptd-rvduoygp resolved, dressings changed ptbxz-iiukbrk-sxwdwhon NESTOR-TECH -MRSA OF NARES on Bactroban protocol -LLE edema-venous Doppler with complex heterogeneous hypoechoic fluid collection in the left calf region measuring 8.4, 2.8, 2.5 cm suggestive of hematoma. On low-dose Lasix. Joan wrap LLE -LE edema could be related to hypoalbuminemia leading to third spacing-edema improving -Generalized edema-some shortness of breath and abdominal distention-cardiology gave a dose of IV Lasix-monitor urine output, daily weights-SOB resolved -09/05-venous Doppler of LLE-negative for DVT-Joan wrap dressing and elevation -Chest x-ray with minimal basilar pulmonary opacities -Anemia-hemoglobin 8.3, 7.7, transfused 2 units of PRBC on 09/05 -09/08: s/p EGD and colonoscopy. EGD showed mild gastritis. Colonoscopy showed rectal polyp that was resected by snare. Anemia likely secondary to chronic kidney disease. Consult renal. -Pathology of polyp came back as tubular adenoma. recommend repeating colonoscopy in 5 years as per GI -Consider video capsule endoscopy as outpt if evidence of dropping H/H -Chemistries good, creatinine 2.0, 2.4, magnesium normal -Renal ultrasound negative -09/12/2022 laboratory this morning showed sodium 134, potassium [...] twice daily-as per renal -Continue antibiotics per ID-on cefepime and vancomycin until 09/24 for treatment of prostatic abscess-Camarena as per -Noted LLE swelling (not new) and low albumin. may benefit from albumin infusion + Lasix -CXR, BNP and Echo per cardiology gentle diuresis per cardio and renal -Advance therapies as tolerated-discussed treatment plan with patient and -Patient progressing with therapies, requires multiple rest breaks. Some back pain improved with pain medications. Mild dizziness and blood pressure 162/79 with no increase in symptoms during sessions. Patient making steady progress towards goals. PM R [...] Face to face exam completed. Treatment plan discussed with patient. Meets continued stay criteria. Agree with interdisciplinary treatment plan. at 205 RPT #:[id number] END OF REPORT [facility] 2022-09-12 20:28:00 [facility] ([facility]) Podiatry Progress Note REPORT#:[id number] REPORT STATUS: Signed DATE:09/12/22 TIME: 2027 PATIENT: KARMA ROWLAND UNIT #: [id number] ROOM/BED: [place] [address] : 63 AGE: 56 SEX: M ATTEND: Mj Vences MD ADM AUTHOR: Liam Jeffrey DPM * ALL edits or amendments must be made on the electronic/computer document * Subjective Chief complaint: left heel ulcer. left ankle pain Patient reports: no constipation, no cough, no dizziness, no fever, no nausea Objective General VS: [...] Hydromorphone HCl (DILAUDID) 0.5 MG DAILY PRN PRN [...] 24 hour I O ending at 0700: 04/21 0700 04/ 1900 Intake Total 100.00 960 Output Total 850 375 Balance -750.00 585 Intake, IV 100.00 Intake, Oral 960 Number 0 0 Incontinent Voids Number Voids 0 0 Output, Urine 850 375 Dietitian nutrition assessment The data set between the solid lines has been imported from the dietitian's assessment. BMI Calculated: 26.7 Nutrition related diagnosis: Nutrition diagnosis details: Nutrition problem: Altered nutrition labs Nutrition etiology: DM Nutrition signs and symptoms: HYPER/HYPOGLYCEMIA, A1C >14 Nutrition prescription: CONTINUE DM DIET Dietitian name: You Palmer, DIET Assessment completed: 09/09/22 Physical Exam General appearance: alert, awake, oriented Wound/incision: Location: left foot Site condition: dp/pt 2/4 left. light touch decreased left foot. ulcer starting at posterior left heel. eccymosis noted. early likely stage 1. left ankle has edema. pain with aggressive ROM left ankle. LE vascular pulse assess: 2+ L posterior [...] % (Auto) (14.0 - 32.0 %) 15.0 [place] % (Auto) (4.8 - 9.0 %) 7.9 Eos % (Auto) (0.3 - 3.7 %) 3.8 H Baso % (Auto) (0.0 - 2.0 %) 0.3 Neut # (Auto) (2.0 - 7.6 x10 3/uL) 6.34 Lymph # (Auto) (1.0 - 3.8 x10 3/uL) 1.31 [place] # (Auto) (0.1 - 0.8 x10 3/uL) [...] IV abx on PO gabapentin offloading boot joan wraps to ankle, only when OOB with therapy. Consultants: cardiology, endocrinology, hospitalist, infectious disease, podiatry at 2030 RPT #:[id number] END OF REPORT [facility] 2022-09-12 18:02:00 [facility] ([facility]) Endocrinology Progress Note REPORT#:[id number] REPORT STATUS: Signed DATE:09/12/22 TIME: 1801 PATIENT: KARMA ROWLAND UNIT #: [id number] ROOM/BED: [place] [address] : 63 AGE: 56 SEX: M ATTEND: Mj Vences MD ADM AUTHOR: Braxton Chapin MD * ALL edits or amendments must be made on the electronic/computer document * Subjective Patient reports: no complaints [...] Hydromorphone HCl (DILAUDID) 0.5 MG DAILY PRN PRN [...] % (Auto) (14.0 - 32.0 %) 15.0 [place] % (Auto) (4.8 - 9.0 %) 7.9 Eos % (Auto) (0.3 - 3.7 %) 3.8 H Baso % (Auto) (0.0 - 2.0 %) 0.3 Neut # (Auto) (2.0 - 7.6 x10 3/uL) 6.34 Lymph # (Auto) (1.0 - 3.8 x10 3/uL) 1.31 [place] # (Auto) (0.1 - 0.8 x10 3/uL) [...] % (Auto) (14.0 - 32.0 %) 16.1 [place] % (Auto) (4.8 - 9.0 %) 9.1 H Eos % (Auto) (0.3 - 3.7 %) 5.6 H Baso % (Auto) (0.0 - 2.0 %) 0.5 Neut # (Auto) (2.0 - 7.6 x10 3/uL) 5.35 Lymph # (Auto) (1.0 - 3.8 x10 3/uL) 1.27 [place] # (Auto) (0.1 - 0.8 x10 3/uL) [...] % (Auto) (14.0 - 32.0 %) 15.5 [place] % (Auto) (4.8 - 9.0 %) 8.5 Eos % (Auto) (0.3 - 3.7 %) 5.5 H Baso % (Auto) (0.0 - 2.0 %) 0.4 Neut # (Auto) (2.0 - 7.6 x10 3/uL) 5.94 Lymph # (Auto) (1.0 - 3.8 x10 3/uL) 1.33 [place] # (Auto) (0.1 - 0.8 x10 3/uL) [...] % (Auto) (14.0 - 32.0 %) 16.1 [place] % (Auto) (4.8 - 9.0 %) 9.2 H Eos % (Auto) (0.3 - 3.7 %) 4.7 H Baso % (Auto) (0.0 - 2.0 %) 0.4 Neut # (Auto) (2.0 - 7.6 x10 3/uL) 6.38 Lymph # (Auto) (1.0 - 3.8 x10 3/uL) 1.49 [place] # (Auto) (0.1 - 0.8 x10 3/uL) [...] (Auto) (14.0 - 32.0 %) 13.7 L [place] % (Auto) (4.8 - 9.0 %) 7.2 Eos % (Auto) (0.3 - 3.7 %) 4.8 H Baso % (Auto) (0.0 - 2.0 %) 0.3 Neut # (Auto) (2.0 - 7.6 x10 3/uL) 6.64 Lymph # (Auto) (1.0 - 3.8 x10 3/uL) 1.24 [place] # (Auto) (0.1 - 0.8 x10 3/uL) [...] abdomen. Impression By: [email or web address] - Roger Parra M.D. ULTRASOUND - [facility] 09/05 1146 Report Impression - Status: SIGNED Entered: 09/05/2022 1333 IMPRESSION: 1. No evidence of deep vein thrombosis. 2. Complex heterogeneous hypoechoic fluid collection in the left calf region measuring 8.4 x 2.8 x 2.5 cm; there is no internal vascularity or peripheral hyperemia. May represent a hematoma. Impression By: [id number] - Mert Ga M.D. RADIOLOGY - XR CHEST 1 V 09/05 1432 Report Impression - Status: SIGNED Entered: 09/05/2022 1515 IMPRESSION: Minimal bibasilar pulmonary opacities Impression By: TipTDO - Bishop Mares M.D. Laboratory [...] COLB STOOL 1.Diabetes mellitus type 2 uncontrolled complications. 2. 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 4. Sepsis 5. Prostate abscess. 6. Anemia Blood sugar 167-68 mg/dL.H/H 8.11/17. Adjust insulin dose. PT and OT. at 1803 RPT #:[id number] END OF REPORT [facility] 2022-09-12 09:52:00 [facility] Hospitalist Progress Note REPORT#:[id number] REPORT STATUS: Signed DATE:09/12/22 TIME: 951 PATIENT: KARMA ROWLAND UNIT #: [id number] ROOM/BED: [place] [address] : 63 AGE: 56 SEX: M ATTEND: Mj Vences MD ADM AUTHOR: Wilbert Ramires MD * ALL edits or amendments must be made on the electronic/computer document * See Addendum Subjective Chief complaint: [...] Hydromorphone HCl (DILAUDID) 0.5 MG DAILY PRN PRN [...] rate rhythm Respiratory: aerating well, clear to auscultation Abdomen: non-tender, normal bowel sounds Genitourinary: no flank pain Extremities: moves all, normal capillary refill Musculoskeletal: normal inspection, painless range of motion Neuro/QUANTITATIVE ANALYST: alert, oriented X 3, 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 Considered stroke alert: no Skin: dry, intact Psychiatry: normal affect, normal judgment/insight Results Findings/Data: Laboratory Tests 09/12 09/12 09/11 [...] % (Auto) (14.0 - 32.0 %) 15.0 [place] % (Auto) (4.8 - 9.0 %) 7.9 Eos % (Auto) (0.3 - 3.7 %) 3.8 H Baso % (Auto) (0.0 - 2.0 %) 0.3 Neut # (Auto) (2.0 - 7.6 x10 3/uL) 6.34 Lymph # (Auto) (1.0 - 3.8 x10 3/uL) 1.31 [place] # (Auto) (0.1 - 0.8 x10 3/uL) [...] 18.3 Diagnosis, Assessment Plan Consultants: cardiology, endocrinology, hospitalist, infectious disease, podiatry Free Text DxA P Notes Free text DxA P notes: Gangrene of right foot s/p Below- knee amputation Prostate abscess MRSA bacteremia Hx of Diabetes, Diabetic neuropathy HTN ERIKA PLANS: Continue with PT/OT per primary Fall precautions Nutritional support fall precautions bowel regimen Wound care as directed Hepain PPX Continue with supportive / care follow hgb closely and transfuse as needed labs noted. watch Hgb IV iron BP improving. cntinue to adjust BP meds depending on trends noted worsening renal function. renal following check urine eosinophils - vanco held. on Cefepime trend renal function closely pain control at 0955 Addendum 1: 09/12/22 1058 by Wilbert Ramires MD noted LLE swelling (not new) and low albumin. may benefit from albumin infusion + Lasix CXR and Echo per cardiology gentle diuresis per cardio and renal at 1059 RPT #:[id number] END OF REPORT [facility] 2022-09-12 09:19:00 [facility] ([facility]) Rehab Progress Note REPORT#:[id number] REPORT STATUS: Signed DATE:09/12/22 TIME: 918 PATIENT: KARMA ROWLAND UNIT #: [id number] ROOM/BED: [place] [address] : 63 AGE: 56 SEX: M ATTEND: Mj Vences MD ADM AUTHOR: Mj Vences MD * ALL edits or amendments must be made on the electronic/computer document * Subjective Chief complaint: Rehab follow-up Doing well Patient worried about edema Eating 75-100% at bedside + BM Denies DICKENS/N/V/D/CP 14 systems reviewed and neg. except that [...] is wearing a nestor-tech orthotic for right knee/BKA protection. Prior to [...] Hydromorphone HCl (DILAUDID) 0.5 MG DAILY PRN PRN [...] Exam General appearance: alert, awake, no acute distress Psych: alert, normal affect, oriented x 3 HEENT: anicteric, sclera clear Neck: supple, no JVD Cardiovascular: S1/S2, no murmur Respiratory: aerating well, clear bilaterally Abdomen: bowel sounds present, non-distended, soft, non-tender Skin: no rash, R BKA HEALING. L ankle/foot wrapped with kerlix Musculoskeletal - general: Musculoskeletal - general: swelling (LLE, calve NT, homans neg), BUE 5/5, LLE 4/5, R hip 3- Neuro/QUANTITATIVE ANALYST: alert, oriented X 3, CNII-XII intact Results [...] % (Auto) (14.0 - 32.0 %) 15.0 [place] % (Auto) (4.8 - 9.0 %) 7.9 Eos % (Auto) (0.3 - 3.7 %) 3.8 H Baso % (Auto) (0.0 - 2.0 %) 0.3 Neut # (Auto) (2.0 - 7.6 x10 3/uL) 6.34 Lymph # (Auto) (1.0 - 3.8 x10 3/uL) 1.31 [place] # (Auto) (0.1 - 0.8 x10 3/uL) [...] Report Impression - Status: SIGNED Entered: 09/05/2022 3215 IMPRESSION: Minimal bibasilar pulmonary opacities Impression By: Yared Mares M.D. ULTRASOUND - US RETROPERITONEAL COM 09/10 1311 Report Impression - Status: SIGNED Entered: 09/10/2022 9633 IMPRESSION: No acute findings. Impression By: Yared - Bishop Mares M.D. Diagnosis, Assessment Plan Problem List/A P: 1. Gangrene of right foot 2. Below-knee amputation of right lower extremity 3. MRSA bacteremia 4. Cellulitis of foot, right 5. DKA (diabetic ketoacidosis) 6. Hyperglycemia 7. ERIKA (acute kidney injury) 8. Postoperative pain 9. Acute anemia 10. Prostate abscess 11. 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 Leroy Significant impairment in self-care, ADLs and functional mobility Impaired mobility and gait Acute postoperative pain right BKA Diabetic polyneuropathy DKA, DM 2, poorly controlled, A1c greater than 14 PAD MRSA bacteremia/sepsis-treated on acute ERIKA Severe hyponatremia-resolved HTN Acute on chronic anemia requiring multiple transfusions, possible GI bleed Left calf hematoma Edema and clinical arthritis left ankle Early decubitus to left heel/DTI dorsal left midfoot Prostatic abscess 08/26: S/p transrectal ultrasound aspiration of abscess and transurethral resection of prostate and unroofing of abscess Echo: EF 55-59%, grade 1 diastolic dysfunction 09/02: JIMENA negative for vegetation MRSA OF NARES 09/08:s/p EGD and colonoscopy. EGD showed mild gastritis. Colonoscopy showed rectal polyp that was resected by snare (tubular adenoma)-repeat colonoscopy in 5 years Plan: -PLOF: Independent with transfers and gait -Amputee rehab program -Continue PT and OT -15/12 rehabilitation nursing care. -Case management for safe discharge planning. -Decubitus prevention -Early decubitus to left heel/DTI dorsal left midfoot-zinc oxide to the foot, foam, offloading, podiatry managing -DVT prophylaxis-subcutaneous heparin -Strict fall and safety precautions -Work on bed mobility, transfer training, ADLs, pre-gait and gait exercises -Increase endurance and strength -Monitor pain with therapies -OOB to chair -Monitor p.o. intake and nutrition, albumin 1.3, prealbumin less than 5, dietary consultation, protein supplements to promote healing -Diabetes-A1c 14, tight glycemia control- endocrine on board, insulin adjustments -Endocrinology, ID, podiatry, cardiology, IM consulted -Pain management adjusting pain medications -Anemia, patient required multiple units of PRBCs on acute, FOBT positive -IV Protonix-consult GI-serial H H-no evidence of gross bleeding-discussed with Dr. Trinidad -Constipation-abdominal iwzrcert-FBI-dcjhzz-CW Senokot and MiraLAX, DSP -Right GKR-eodquxg-xxtfldzp resolved, dressings changed wxopv-wdhrslc-syibarnq NESTOR-TECH -MRSA OF NARES on Bactroban protocol -LLE edema-venous Doppler with complex heterogeneous hypoechoic fluid collection in the left calf region measuring 8.4, 2.8, 2.5 cm suggestive of hematoma. On low-dose Lasix. Joan wrap LLE -LE edema could be related to hypoalbuminemia leading to third spacing-edema improving -Generalized edema-some shortness of breath and abdominal distention-cardiology gave a dose of IV Lasix-monitor urine output, daily weights-SOB resolved -09/05-venous Doppler of LLE-negative for DVT-Joan wrap dressing and elevation -Chest x-ray with minimal basilar pulmonary opacities -Anemia-hemoglobin 8.3, 7.7, transfused 2 units of PRBC on 09/05 -09/08: s/p EGD and colonoscopy. EGD showed mild gastritis. Colonoscopy showed rectal polyp that was resected by snare. Anemia likely secondary to chronic kidney disease. Consult renal. -Pathology of polyp came back as tubular adenoma. recommend repeating colonoscopy in 5 years as per GI -Consider video capsule endoscopy as outpt if evidence of dropping H/H -Chemistries good, creatinine 2.0, 2.4, magnesium normal -Renal ultrasound negative -09/12/2022 laboratory this morning showed sodium 134, potassium [...] twice daily-as per renal -Continue antibiotics per ID-on cefepime and vancomycin until 09/24 for treatment of prostatic abscess-Camarena as per -Noted LLE swelling (not new) and low albumin. may benefit from albumin infusion + Lasix -CXR, BNP and Echo per cardiology gentle diuresis per cardio and renal -Advance therapies as tolerated-discussed treatment plan with [...] , GI recommendations, amputee rehab plan of care, goals, therapies, progress, labs, medications. EMR and MAR is reviewed. All questions answered Consultants: cardiology, endocrinology, hospitalist, infectious disease, podiatry Rehab attestation: Face to face exam completed. Treatment plan discussed with patient. Meets continued stay criteria. Agree with interdisciplinary treatment plan. at 1324 RPT #:[id number] END OF REPORT [facility] 2022-09-12 09:16:00 [facility] Cardiology Progress Note REPORT#:[id number] REPORT STATUS: Signed DATE:09/12/22 TIME: 915 PATIENT: KARMA ROWLAND UNIT #: [id number] ROOM/BED: [place] [address] : 61 AGE: 56 SEX: M ATTEND: Mj Vences MD ADM AUTHOR: Rohit Benitez LOG ROPER * ALL edits or amendments must be made on the electronic/computer document * Rohit Benitez 09/12/22 0916: Subjective Chief complaint: weakness Free Text Subj Notes Free Text Subj Notes: Patient seen and evaluated. Overall feeling well, denies [...] Hydromorphone HCl (DILAUDID) 0.5 MG DAILY PRN PRN [...] regular rate and rhythm, no ectopy, no gallop Respiratory: clear to auscultation, no distress Abdomen: soft, non-tender Lower extremity: LE assessment: edema, normal temperature Neuro/QUANTITATIVE ANALYST: alert, oriented X 3 Considered stroke alert: no Wound/incision: Location: right bka Psychiatry: normal affect, normal judgment/insight, normal mood Results Findings/Data: Laboratory Tests 09/12 [...] % (Auto) (14.0 - 32.0 %) 15.0 [place] % (Auto) (4.8 - 9.0 %) 7.9 Eos % (Auto) (0.3 - 3.7 %) 3.8 H Baso % (Auto) (0.0 - 2.0 %) 0.3 Neut # (Auto) (2.0 - 7.6 x10 3/uL) 6.34 Lymph # (Auto) (1.0 - 3.8 x10 3/uL) 1.31 [place] # (Auto) (0.1 - 0.8 x10 3/uL) [...] 1.86 Diagnosis, Assessment Plan Consultants: cardiology, endocrinology, hospitalist, infectious disease, podiatry Free [...] rehab for physical therapy. Known cardiac history of hypertension and hyperlipidemia. Vital signs stable. Echocardiogram with [...] BMP in the morning. Supportive care. Plan of care discussed with [...] Continue hold diuretic for now. Supportive care. Plan of care discussed with patient, RN and Dr. Parham. Napoleon Parham 09/13/22 9428: Diagnosis, Assessment Plan Additional comments: Patient was seen and examined at bedside, agree with above assessment and plan as documented by nurse practitioner. Discussed with patient, and primary team, will follow. at 1605 at 1502 RPT #:[id number] END OF REPORT [facility] 2022-09-12 09:11:00 [facility] Gastroenterology Progress Note REPORT#:[id number] REPORT STATUS: Signed DATE:09/12/22 TIME: 910 PATIENT: KARMA ROWLAND UNIT #: [id number] ROOM/BED: [place] [address] : 63 AGE: 56 SEX: M ATTEND: Mj Vences MD ADM AUTHOR: Kassie Avitia MD * ALL edits or amendments must be made on the electronic/computer document * Subjective HPI: Patient is a 56-year-old male with history of diabetes mellitus type 2 and hypertension who was initially admitted for altered mental status and right- sided foot infection. [...] years Anemia likely secondary to chronic kidney disease. Can consider video capsule endoscopy as outpt if evidence of dropping H/H Will follow along Consultants: cardiology, endocrinology, hospitalist, infectious disease, podiatry at 0913 RPT #:[id number] END OF REPORT [facility] 2022-09-12 08:35:00 [facility] ([facility]) Infectious Dis. Progress Note REPORT#:[id number] REPORT STATUS: Signed DATE:09/12/22 TIME: 0835 PATIENT: KARMA ROWLAND UNIT #: [id number] ROOM/BED: [place] [address] : 63 AGE: 56 SEX: M ATTEND: Mj Vences MD ADM AUTHOR: Merry Wolff MD * ALL edits or amendments must be made on the electronic/computer document * Subjective HPI: PT is a [...] 09/12 doing well, working with PT in [employer] Patient reports: No: cough, diarrhea, fever, headache, nausea, shortness [...] awake, oriented Head/Eyes: atraumatic, clear cornea, EOMI, normal conjunctiva/sclera, normal eyelids/periorb, normocephalic, PERRL ENT: moist mucosal membranes, normal dentition Neck: full range of motion Cardiovascular: normal heart sounds, regular rate rhythm Respiratory: clear to auscultation, aerating well Abdomen: non-tender, normal bowel sounds, soft Extremities: moves all, right BKA Left foot wound +dressing in place Neuro/QUANTITATIVE ANALYST: alert, oriented X 3 Considered stroke alert: [...] % (Auto) (14.0 - 32.0 %) 15.0 [place] % (Auto) (4.8 - 9.0 %) 7.9 Eos % (Auto) (0.3 - 3.7 %) 3.8 H Baso % (Auto) (0.0 - 2.0 %) 0.3 Neut # (Auto) (2.0 - 7.6 x10 3/uL) 6.34 Lymph # (Auto) (1.0 - 3.8 x10 3/uL) 1.31 [place] # (Auto) (0.1 - 0.8 x10 3/uL) [...] sets. -Repeat blood cultures 08/21/2022 are already positive for MRSA in 2 out of 2 sets, suggesting persistent high-grade bacteremia. -TTE 08/18/2022 negative for any obvious vegetations. -08/28 neg -JIMENA 09/02 neg *Prostatic abscess -s/p transrectal aspiration and unroofing on 08/26 -cx MRSA, citrobacter (r-cefazolin) Enterococcus raffinosus (S-amp,pcn, vancomycin), bacteriodes *ERIKA -nephrology following; worsening *Hyponatremia *Diabetic neuropathy *Diabetes mellitus type 2 *Hypertension *anemia 09/08 -cont on Cefepime and vancomycin til 5/3 for treatment of Prostate abscess -follow esr and crp -EGD today 09/09 -on cefepime and vancomycin til 5/3 for treatment of prostate abscess 09/10 on cefepime and [...] on 09/12/22 at 1209 at 1621 RPT #:[id number] END OF REPORT [facility] 2022-09-12 07:08:00 [facility] ([facility]) Pain Management Progress Note REPORT#:[id number] REPORT STATUS: Signed DATE:09/12/22 TIME: 707 PATIENT: KARMA ROWLAND UNIT #: [id number] ROOM/BED: [place] [address] : 63 AGE: 56 SEX: M ATTEND: Mj Vences MD ADM AUTHOR: Charlie Quiroga LOG ROPER * ALL edits or amendments must be made on the electronic/computer document * Charlie Quiroga 09/12/22 0708: Subjective Chief complaint: Patient seen and examined. Chart/MAR reviewed. Patient had adequate pain control last night. Medications are effective for pain when needed. No side effects noted at this time. Will continue to wean IV pain medications. Patient being seen for Acute postoperative pain, right foot and ankle gangrene, requiring BKA, Constipation Patient is still requiring medications to help with managing current problems. Patient is requiring IV narcotics to help manage breakthrough pain No fever/chills, chest pain, orthopnea, nausea/vomiting, pruritus, or hallucinations. 14 point ROS undertaken unremarkable except as noted Objective General VS/I O: Vital Signs Date [...] Physical Exam General appearance: alert, awake, oriented, pleasant Head/eyes: atraumatic, EOMI, normocephalic, normal conjunctiva/sclera, PERRLA ENT: normal ear left, normal ear right, normal nose, normal pharynx, moist mucosal membranes Neck: full range of motion, no lymphadenopathy, supple/no meningismus Cardiovascular: regular rate rhythm Respiratory: clear to auscultation, no distress, aerating well Abdomen: soft, non-tender, no distention, active bowel sounds in all quarants. Abdomen quadrants LLQ normal bowel sounds, LUQ normal bowel sounds, RLQ normal bowel sounds, RUQ normal bowel sounds Extremities: moves all, no edema, pedal pulses Neuro/QUANTITATIVE ANALYST: 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, no sensory deficits, CNII-XII grossly intact Considered stroke alert: no [...] pain, right foot and ankle gangrene, requiring BKA -Patient is at risk for further amputations or loss of limb due to comorbid conditions -Status post right BKA 08/28/2022 -DC [place] 10/325 1 tablet p.o. every 4 hours as needed pain scale 4 10 -Tylenol 650 mg p.o. every 6 hours as needed pain scale 1 3 -reduce Dilaudid 0.5 mg IV daily as needed pain scale 7 10, second line therapy (4/21) -Percocet 10/325mg every 4 hours as needed, pain scale 4-10 (09/10) -Lidoderm patch to left ankle daily -IV antibiotics with vancomycin until 5- -Local wound care -manageable Diabetic peripheral neuropathy -amitriptyline 25mg PO QHS -Gabapentin 100mg every 8 hours (09/10) -manageable Hypertension -We will monitor hypertension and tachycardia due to pain, and hypotension as well as bradycardia secondary over sedation with narcotics -Hydralazine as needed Elevated LFTs -08/20/22-AST 51, ALT 22 -09/03/2022-AST 15, ALT 7 -Patient will require close monitoring since he is using narcotics with Tylenol Impaired functional mobility, balance, gait, and endurance -PT/OT Antalgic/Impaired gait -PT/OT -Improve strength, endurance, self-care, gait, balance, ADLs -Fall precautions per unit protocol -Pain medications as outlined above Constipation -We will monitor while utilizing opioid narcotic medications. -Adequate fluid intake also discussed. -Colace 100 mg p.o. twice daily as needed -Dulcolax 10 mg rectally daily as needed -Senna lax 8.6mg daily -Miralax 17gm daily -manageable Disposition: Past Medical History: Prostate abscess, right foot foot and ankle gangrene, diabetes, hypertension, hyperlipidemia Past Surgical History: TURP, right BKA Family History: Noncontributory Social History: Denies tobacco, alcohol, or drug use Allergies: NKDA Patient has failed conservative medical therapy. Patient will require monitoring while utilize narcotic medications [...] whom agrees. Thank you for the consultation. [place] ORCHESTRA LEADER: -database searched, no information found Kingsley Ng 09/30/22 0831: Attestations Physician Attestation Agree w/findings plan: The patient was seen and examined by Charlie Quiroga. I personally saw the patient and developed the care plan, which was continued by the mid-level provider. at 1051 at 0835 [facility] #:[id number] END OF REPORT [facility] 2022-09-12 06:09:00 [facility] ([facility]) Nephrology Progress Note REPORT#:[id number] REPORT STATUS: Signed DATE:09/12/22 TIME: 06 PATIENT: KARMA ROWLAND UNIT #: [id number] ROOM/BED: [place] [address] : 63 AGE: 56 SEX: M ATTEND: Mj Vences MD ADM AUTHOR: Barrera Ramírez MD * ALL edits or amendments must be made on the electronic/computer document * Subjective Chief complaint: Infected foot HPI: Patient seen and evaluated on 09/09/2022, note started, [...] change from initial, feels okay. Review of Systems Constitutional: Reports: [...] edema, non-tender Musculoskeletal: no CVA tenderness, no tenderness Neuro/QUANTITATIVE ANALYST: alert, normal speech Considered stroke alert: no [...] (Auto) (14.0 - 32.0 %) 16.1 15.5 [place] % (Auto) (4.8 - 9.0 %) 9.1 H 8.5 Eos % (Auto) (0.3 - 3.7 %) 5.6 H 5.5 H Baso % (Auto) (0.0 - 2.0 %) 0.5 0.4 Neut # (Auto) (2.0 - 7.6 x10 3/uL) 5.35 5.94 Lymph # (Auto) (1.0 - 3.8 x10 3/uL) 1.27 1.33 [place] # (Auto) (0.1 - 0.8 x10 3/uL) [...] and laboratories reviewed. Diabetes mellitus: Insulin: Monitor blood sugar closely and adjust medications as needed, followed by endocrinology. Hypertension: Blood pressure is not well controlled, increase Coreg to 12.5 mg p.o. twice daily: Monitor blood pressure closely and adjust medications as needed Right foot gangrene/infection status post right BKA Anemia: Status post EGD and colonoscopy which were negative for active GI bleeding, patient had work-up in July 2022 which showed very high B12, normal folate, very low iron saturation but very high ferritin which was likely related to his infection, likely patient is very iron deficient, will repeat lab and give IV iron if needed. We will check serum immunofixation. Acute kidney injury: We will check renal bladder ultrasound, check postvoid residual, check urine protein creatinine ratio Hypomagnesemia: We will supplement 09/10/2022 laboratory this morning showed sodium 135, potassium 4.2, CO2 21, BUN 25, creatinine 1.9 continues to worsen, etiology unclear, however his development some eosinophilia not sure if he is developing AIN, suggest changing cefepime to a different class of antibiotic if possible, will check renal bladder ultrasound 09/11/2022 laboratory this morning showed sodium 134, potassium 4.3, CO2 22, BUN 26, creatinine 2 up from 1.9, hopefully creatinine is plateauing, renal ultrasound negative. 09/12/2022 laboratory this morning showed sodium 134, potassium 4.2, CO2 20, BUN 31, creatinine 2.4 continues to worsen, discussed with ID, AIN is probably the etiology of the unexplained deterioration of his renal function, antibiotics to be adjusted by infectious disease, will give Solu-Medrol 125 mg IV daily for 3 days. Significant lower extremity edema, will start Lasix 20 mg p.o. twice daily Consultants: cardiology, endocrinology, hospitalist, infectious disease, podiatry at 1045 RPT #:[id number] END OF REPORT [facility] 2022-09-11 17:23:00 [facility]) Endocrinology Progress Note REPORT#:[id number] REPORT STATUS: Signed DATE:09/11/22 TIME: 1723 PATIENT: KARMA ROWLAND UNIT #: [id number] ROOM/BED: [place] [address] : 61 AGE: 56 SEX: M ATTEND: Mj Vences MD ADM AUTHOR: Braxton Chapin MD * ALL edits or amendments must be made on the electronic/computer document * Subjective Patient reports: no complaints [...] % (Auto) (14.0 - 32.0 %) 16.1 [place] % (Auto) (4.8 - 9.0 %) 9.1 H Eos % (Auto) (0.3 - 3.7 %) 5.6 H Baso % (Auto) (0.0 - 2.0 %) 0.5 Neut # (Auto) (2.0 - 7.6 x10 3/uL) 5.35 Lymph # (Auto) (1.0 - 3.8 x10 3/uL) 1.27 [place] # (Auto) (0.1 - 0.8 x10 3/uL) [...] % (Auto) (14.0 - 32.0 %) 15.5 [place] % (Auto) (4.8 - 9.0 %) 8.5 Eos % (Auto) (0.3 - 3.7 %) 5.5 H Baso % (Auto) (0.0 - 2.0 %) 0.4 Neut # (Auto) (2.0 - 7.6 x10 3/uL) 5.94 Lymph # (Auto) (1.0 - 3.8 x10 3/uL) 1.33 [place] # (Auto) (0.1 - 0.8 x10 3/uL) [...] % (Auto) (14.0 - 32.0 %) 16.1 [place] % (Auto) (4.8 - 9.0 %) 9.2 H Eos % (Auto) (0.3 - 3.7 %) 4.7 H Baso % (Auto) (0.0 - 2.0 %) 0.4 Neut # (Auto) (2.0 - 7.6 x10 3/uL) 6.38 Lymph # (Auto) (1.0 - 3.8 x10 3/uL) 1.49 [place] # (Auto) (0.1 - 0.8 x10 3/uL) [...] (Auto) (14.0 - 32.0 %) 13.7 L [place] % (Auto) (4.8 - 9.0 %) 7.2 Eos % (Auto) (0.3 - 3.7 %) 4.8 H Baso % (Auto) (0.0 - 2.0 %) 0.3 Neut # (Auto) (2.0 - 7.6 x10 3/uL) 6.64 Lymph # (Auto) (1.0 - 3.8 x10 3/uL) 1.24 [place] # (Auto) (0.1 - 0.8 x10 3/uL) [...] abdomen. Impression By: [id number] - Roger Parra M.D. ULTRASOUND - DUP VEIN UNI/LTD 09/05 1146 Report Impression - Status: SIGNED Entered: 09/05/2022 1333 IMPRESSION: 1. No evidence of deep vein thrombosis. 2. Complex heterogeneous hypoechoic fluid collection in the left calf region measuring 8.4 x 2.8 x 2.5 cm; there is no internal vascularity or peripheral hyperemia. May represent a hematoma. Impression By: [id number] - Mert Ga M.D. RADIOLOGY - XR CHEST 1 V 09/05 1432 Report Impression - Status: SIGNED Entered: 09/05/2022 1515 IMPRESSION: Minimal bibasilar pulmonary opacities Impression By: TipTDO - Bishop Mares M.D. Laboratory [...] COLB STOOL 1.Diabetes mellitus type 2 uncontrolled complications. 2. 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 4. Sepsis 5. Prostate abscess. 6. Anemia Blood sugar 109-130 mg/dL.H/H 8.11/17. Adjust insulin dose. PT and OT. at 1724 RPT #:[id number] END OF REPORT [facility] 2022-09-11 16:34:00 [facility] Pharmacy Prog.Note-Vancomycin REPORT#:[id number] REPORT STATUS: Signed DATE:09/11/22 TIME: 1634 PATIENT: KARMA ROWLAND UNIT #: [id number] ROOM/BED: [place] [address] : 61 AGE: 56 SEX: M ATTEND: Mj Vences MD ADM AUTHOR: Joselyn Stock [facility] * ALL edits or amendments must be made on the electronic/computer document * See Addendum Vancomycin Vancomycin Medication Therapy Goal: Random 15-20 mcg/mL Indication for treatment: OM and MRSA Bacteremia VS and I/O: Vital Signs Date Temp Pulse Resp B/P B/P Mean Pulse Ox FiO2 09/08-09/11 97.3-98.2 70-91 15-18 133-168/64-83 87.1-110.6 94-99 72 hours ending at 0700 09/11 0700 09/10 1900 09/10 0700 09/09 1900 09/09 09/08 0700 1900 Intake 715 250.00 Total [...] to cefepime/ vancomycin. Pharmacy consulted to dose vancomycin. Consulting provider: Merry Wolff Indication: Osteomyelitis of the Talus, Calcaneus, and Navicular Bone; MRSA Bacteremia; Prostatic Abscess Goal Random: 15-20 mcg/mL Concomitant Abx: Cefepime Duration of Therapy: 09/24/22 Assessment: Labs/Vitals * Afebrile/24hrs, WBC 7.9, BUN/SCr 26/2, UOP/24hrs -1L Micro * MRSA nares (09/03) positive * WCx (08/26) Citrobacter Farmeri (R Ampicillin, Cefazolin), Enterococcus Raffinosus (R Tetracycline), MRSA Imaging * CT Abd/Pelvis (08/18) possible abscess * RLE MRI (08/21) osteomyelitis of the talus, calcaneus, navicular bone Level * Random (09/07 @0510) 14.7 mcg/mL; s/p Vanc 1gm IV x1 09/05 @2009; Calculated half-life = 35.8hrs * Random (09/08 @1045) 15.8 mcg/mL; s/p Vanc 750mg IV x1 09/07 @1102 * Given patient's renal function has been elevated, yet stable, Vancomycin 500mg IV q24h was initiated * Random (09/09 @1403) 15.4 mcg/mL; s/p Vanc 500mg IV x1 09/08 @1403 * Random (09/10 @1430) 15.7 mcg/mL; s/p Vanc 500mg IV x1 09/09 @1553 * Random (09/11 @1445) 18.3 mcg/mL; s/p Vanc 500mg IV x1 09/07 @1627 Plan: * Patient's renal function worsened today and vanc is accumulating, therefore will continue to dose by random level * Draw random level 09/11 @2100 to assess clearance at 1642 Addendum 1: 09/11/22 2307 by Beti Willoughby [facility] * level drawn @2130 ( 29 hrs after prev dose); resulted 16.7 mcg/mL (therapeutic ) * will give vancomycin 500 mg IV once, plan for random 30hr level 09/13 0500 * pharmacy will continue to follow and adjust as appropriate at 2307 RPT #:[id number] END OF REPORT [facility] 2022-09-11 11:30:00 [facility] ([facility]) Hospitalist Progress Note REPORT#:[id number] REPORT STATUS: Signed DATE:09/11/22 TIME: 1130 PATIENT: KARMA ROWLAND UNIT #: [id number] ROOM/BED: [facility] : 63 AGE: 56 SEX: M ATTEND: Mj Vences MD ADM AUTHOR: Wilbert Ramires MD * ALL edits or amendments must be made on the electronic/computer document * Subjective Chief complaint: admitted to [...] rate rhythm Respiratory: aerating well, clear to auscultation Abdomen: non-tender, normal bowel sounds Genitourinary: no flank pain Extremities: moves all, normal capillary refill Musculoskeletal: normal inspection, painless range of motion Neuro/QUANTITATIVE ANALYST: alert, oriented X 3, normal speech Considered stroke alert: no Skin: dry, intact Psychiatry: normal affect, normal judgment/insight Diagnosis, Assessment Plan Consultants: cardiology, endocrinology, hospitalist, infectious disease, podiatry Free Text DxA P Notes Free text DxA P notes: Gangrene of right foot s/p Below- knee amputation Prostate abscess MRSA bacteremia Hx of Diabetes, Diabetic neuropathy HTN PLANS: Continue with ABx as dierected- currently on Daptomycin and Cefepime Continue with PT/OT per primary Fall precautions Nutritional support pain control fall precautions bowel regimen Wound care as directed Hepain PPX Continue with supportive / care follow hgb closely and transfuse as needed blood sugars dipping down - endo following labs noted. watch Hgb IV iron BP improving. cntinue to adjust BP meds depending on trends at 1131 RPT #:[id number] END OF REPORT [facility] 2022-09-11 10:41:00 [facility] ([facility]) Rehab Progress Note REPORT#:[id number] REPORT STATUS: Signed DATE:09/11/22 TIME: 1041 PATIENT: KARMA ROWLAND UNIT #: [id number] ROOM/BED: [place] [address] : 61 AGE: 56 SEX: M ATTEND: Mj Vences MD ADM AUTHOR: Mj Vences MD * ALL edits or amendments must be made on the electronic/computer document * Subjective Chief complaint: Rehab follow-up Patient doing well, sitting up in wheelchair Decrease edema of LLE + BM Eating 75-100% at bedside Denies DICKENS/N/V/D/CP 14 systems reviewed and neg. except that [...] is wearing a nestor-tech orthotic for right knee/BKA protection. Prior to [...] Exam General appearance: alert, awake, no acute distress Psych: alert, normal affect, oriented x 3 HEENT: anicteric, sclera clear Neck: supple, no JVD Cardiovascular: S1/S2, no murmur Respiratory: aerating well, clear bilaterally Abdomen: bowel sounds present, non-distended, soft, non-tender Skin: no rash, R BKA HEALING. L ankle/foot wrapped with kerlix Musculoskeletal - general: Musculoskeletal - general: swelling (LLE, calve NT, homans neg), BUE 5/5, LLE 4/5, R hip 3- Neuro/QUANTITATIVE ANALYST: alert, oriented X 3, CNII-XII intact Results [...] % (Auto) (14.0 - 32.0 %) 16.1 [place] % (Auto) (4.8 - 9.0 %) 9.1 H Eos % (Auto) (0.3 - 3.7 %) 5.6 H Baso % (Auto) (0.0 - 2.0 %) 0.5 Neut # (Auto) (2.0 - 7.6 x10 3/uL) 5.35 Lymph # (Auto) (1.0 - 3.8 x10 3/uL) 1.27 [place] # (Auto) (0.1 - 0.8 x10 3/uL) [...] or peripheral hyperemia. May represent a hematoma. Impression By: [id number] - Mert Ga M.D. RADIOLOGY - XR CHEST 1 V 09/05 1432 Report Impression - Status: SIGNED Entered: 09/05/2022 1515 IMPRESSION: Minimal bibasilar pulmonary opacities Impression By: Yared Mares M.D. ULTRASOUND - US RETROPERITONEAL COM 09/10 1311 Report Impression - Status: SIGNED Entered: 09/10/2022 1503 IMPRESSION: No acute findings. Impression By: Yared Mares M.D. Diagnosis, Assessment Plan Problem List/A P: 1. Gangrene of right foot 2. Below-knee amputation of right lower extremity 3. MRSA bacteremia 4. Cellulitis of foot, right 5. DKA (diabetic ketoacidosis) 6. Hyperglycemia 7. ERIKA (acute kidney injury) 8. Postoperative pain 9. Acute anemia 10. Prostate abscess 11. 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 Leroy Significant impairment in self-care, ADLs and functional mobility Impaired mobility and gait Acute postoperative pain right BKA Diabetic polyneuropathy DKA, DM 2, poorly controlled, A1c greater than 14 PAD MRSA bacteremia/sepsis-treated on acute ERIKA Severe hyponatremia-resolved HTN Acute on chronic anemia requiring multiple transfusions, possible GI bleed Left calf hematoma Edema and clinical arthritis left ankle Early decubitus to left heel/DTI dorsal left midfoot Prostatic abscess 08/26: S/p transrectal ultrasound aspiration of abscess and transurethral resection of prostate and unroofing of abscess Echo: EF 55-59%, grade 1 diastolic dysfunction 09/02: JIMENA negative for vegetation MRSA OF NARES 09/08:s/p EGD and colonoscopy. EGD showed mild gastritis. Colonoscopy showed rectal polyp that was resected by snare. Plan: -PLOF: Independent with transfers and gait -Amputee rehab program -Continue PT and OT -15/12 rehabilitation nursing care. -Case management for safe discharge planning. -Decubitus prevention -Early decubitus to left heel/DTI dorsal left midfoot-zinc oxide to the foot, foam, offloading, podiatry managing -DVT prophylaxis-subcutaneous heparin -Strict fall and safety precautions -Work on bed mobility, transfer training, ADLs, pre-gait and gait exercises -Increase endurance and strength -Monitor pain with therapies -OOB to chair -Monitor p.o. intake and nutrition, albumin 1.3, prealbumin less than 5, dietary consultation, protein supplements to promote healing -Diabetes-A1c 14, tight glycemia control- endocrine on board, insulin adjustments -Endocrinology, ID, podiatry, cardiology, IM consulted -Pain management adjusting pain medications -Anemia, patient required multiple units of PRBCs on acute, FOBT positive -IV Protonix-consult GI-serial H H-no evidence of gross bleeding-discussed with Dr. Trinidad -Constipation-abdominal ghxqnqba-KTI-revmrv-CW Senokot and MiraLAX, DSP -Right OFY-lbbtgqu-efnjuhcj resolved, dressings changed kroxa-dnpermi-xwlhktvv NESTOR-TECH -MRSA OF NARES on Bactroban protocol -LLE edema-venous Doppler with complex heterogeneous hypoechoic fluid collection in the left calf region measuring 8.4, 2.8, 2.5 cm suggestive of hematoma. On low-dose Lasix. Ojan wrap LLE -LE edema could be related to hypoalbuminemia leading to third spacing-edema improving -Generalized edema-some shortness of breath and abdominal distention-cardiology gave a dose of IV Lasix-monitor urine output, daily weights-SOB resolved -09/05-venous Doppler of LLE-negative for DVT-Joan wrap dressing and elevation -Chest x-ray with minimal basilar pulmonary opacities -Anemia-hemoglobin 8.3, transfused 2 units of PRBC on 09/05 -09/08: s/p EGD and colonoscopy. EGD showed mild gastritis. Colonoscopy showed rectal polyp that was resected by snare. Anemia likely secondary to chronic kidney disease. Consult renal. -Chemistries good, creatinine 2.0, magnesium 1.9 -Renal ultrasound negative -09/11/2022 laboratory this morning showed sodium 134, potassium 4.3, CO2 22, BUN 26, creatinine 2 up from 1.9, hopefully creatinine is plateauing, renal ultrasound negative-as per renal -Continue antibiotics per ID-on cefepime and vancomycin until 09/24 for treatment of prostatic abscess -Advance therapies as tolerated-discussed treatment plan with [...] Complete Consultants: cardiology, endocrinology, hospitalist, infectious disease, podiatry Rehab attestation: Face to face exam completed. Treatment plan discussed with patient. Meets continued stay criteria. Agree with interdisciplinary treatment plan. at 1731 RPT #:[id number] END OF REPORT [facility] 2022-09-11 09:29:00 [facility] ([facility]) Cardiology Progress Note REPORT#:[id number] REPORT STATUS: Signed DATE:09/11/22 TIME: 928 PATIENT: KARMA ROWLAND UNIT #: [id number] ROOM/BED: [place] [address] : 63 AGE: 56 SEX: M ATTEND: Mj Vences MD ADM AUTHOR: Rohit Benitez LOG ROPER * ALL edits or amendments must be made on the electronic/computer document * Rohit Benitez 09/11/22 09: Subjective Chief complaint: weakness Free Text Subj [...] regular rate and rhythm, no ectopy, no gallop Respiratory: clear to auscultation, no distress Abdomen: soft, non-tender Lower extremity: LE assessment: edema, normal temperature Neuro/QUANTITATIVE ANALYST: alert, oriented X 3 Considered stroke alert: no Wound/incision: Location: right bka Psychiatry: normal affect, normal judgment/insight, normal mood Results Findings/Data: Laboratory Tests 09/11 [...] % (Auto) (14.0 - 32.0 %) 16.1 [place] % (Auto) (4.8 - 9.0 %) 9.1 H Eos % (Auto) (0.3 - 3.7 %) 5.6 H Baso % (Auto) (0.0 - 2.0 %) 0.5 Neut # (Auto) (2.0 - 7.6 x10 3/uL) 5.35 Lymph # (Auto) (1.0 - 3.8 x10 3/uL) 1.27 [place] # (Auto) (0.1 - 0.8 x10 3/uL) [...] Impression By: Yared Mares M.D. Diagnosis, Assessment Plan Consultants: cardiology, endocrinology, hospitalist, infectious disease, podiatry Free [...] rehab for physical therapy. Known cardiac history of hypertension and hyperlipidemia. Vital signs stable. Echocardiogram with [...] BMP in the morning. Supportive care. Plan of care discussed with [...] RN and Dr. Parham. Napoleon Parham 09/13/22 1457: Diagnosis, Assessment Plan Additional comments: Patient was seen and examined at bedside, agree with above assessment and plan as documented by nurse practitioner with modifications. Physical examination reveals pulmonary rales and lower extremity edema. Low albumin level. Could be third spacing. Creatinine keeps going up. Hold Lasix. Will discuss with nephrology. at 1823 at 1505 RPT #:[id number] END OF REPORT [facility] 2022-09-11 09:23:00 [facility] ([facility]) Infectious Dis. Progress Note REPORT#:[id number] REPORT STATUS: Signed DATE:09/11/22 TIME: 922 PATIENT: KARMA ROWLAND UNIT #: [id number] ROOM/BED: [place] [address] : 63 AGE: 56 SEX: M ATTEND: Mj Vences MD ADM AUTHOR: Merry Wolff MD * ALL edits or amendments must be made on the electronic/computer document * Subjective HPI: PT is a [...] reports: Yes: pain controlled. No: cough, diarrhea, fever, headache, [...] awake, oriented Head/Eyes: atraumatic, clear cornea, EOMI, normal conjunctiva/sclera, normal eyelids/periorb, normocephalic, PERRL ENT: moist mucosal membranes, normal dentition Neck: full range of motion Cardiovascular: normal heart sounds, regular rate rhythm Respiratory: clear to auscultation, aerating well Abdomen: non-tender, normal bowel sounds, soft Extremities: moves all, right BKA Left foot wound +dressing in place Neuro/QUANTITATIVE ANALYST: alert, oriented X 3 Considered stroke alert: [...] % (Auto) (14.0 - 32.0 %) 15.5 [place] % (Auto) (4.8 - 9.0 %) 8.5 Eos % (Auto) (0.3 - 3.7 %) 5.5 H Baso % (Auto) (0.0 - 2.0 %) 0.4 Neut # (Auto) (2.0 - 7.6 x10 3/uL) 5.94 Lymph # (Auto) (1.0 - 3.8 x10 3/uL) 1.33 [place] # (Auto) (0.1 - 0.8 x10 3/uL) [...] findings. Impression By: Yared Mares M.D. Medication(s) Ordered: Anti-Infective Agents Sig/Jan Start [...] BEDTIME 09/04 2100 AC 09/10 PO 10/04 2059 2107 Acetaminophen 650 MG Q6H PRN PRN 09/01 1330 AC PO 10/01 1329 Electrolytic, Caloric, And Daniel Sig/Jan Start time Last Medication Dose Route Stop Time Status Admin Furosemide 20 MG BLOOD-DOSE BETWEEN 09/05 1245 CKD IV 10/05 1244 Sodium Chloride 10 ML ASDIR 09/05 1245 AC IV 10/05 1244 Furosemide 20 MG DAILY 09/05 09 AC 09/11 PO 10/05 0859 0919 Sodium [...] 0859 0918 Sennosides 8.6 MG DAILY 09/05 09 AC 09/11 PO 10/05 0859 0920 Bisacodyl [...] BEDTIME 09/07 2100 AC 09/07 SUBQ 10/07 2058 2233 Insulin Human Lispro 0 AC HS [...] Prophylaxis Lines: PICC Portions of this section were scribed by Jill Quinteor on 09/11/22 at 0923 Diagnosis, Assessment Plan Free Text A P: *MRSA bacteremia -Initial blood cultures from 08/18/2022 positive for MRSA in 2 out of 2 sets. -Repeat blood cultures 08/21/2022 are already positive for MRSA in 2 out of 2 sets, suggesting persistent high-grade bacteremia. -TTE 08/18/2022 negative for any obvious vegetations. -08/28 neg -JIMENA 09/02 neg *Prostatic abscess -s/p transrectal aspiration and unroofing on 08/26 -cx MRSA, citrobacter (r-cefazolin) Enterococcus raffinosus (S-amp,pcn, vancomycin), bacteriodes *ERIKA *Hyponatremia *Diabetic neuropathy *Diabetes mellitus type 2 *Hypertension *anemia 09/08 -cont on Cefepime and vancomycin til 5/3 for treatment of Prostate abscess -follow esr and crp -EGD today 09/09 -on cefepime and vancomycin til 5/3 for treatment of prostate abscess 09/10 on cefepime and vancomycin til 5/3 for treatment of prostate abscess check esr and crp in am 09/11 on cefepime and vancomycin til 5/3 for treatment of prostate abscess; if pt is discharge before 5/3 can change to oral abx Consultants: cardiology, endocrinology, hospitalist, infectious disease, podiatry Portions of this section were scribed by Jill Quintero on 09/11/22 at 1457 at 0768 RPT #:[id number] END OF REPORT [facility] 2022-09-11 08:03:00 [facility]) Podiatry Progress Note REPORT#:[id number] REPORT STATUS: Signed DATE:09/11/22 TIME: 0803 PATIENT: KARMA ROWLAND UNIT #: [id number] ROOM/BED: [place] [address] : 63 AGE: 56 SEX: M ATTEND: Mj Vences MD ADM AUTHOR: Liam Jeffrey DPM * ALL edits or amendments must be made on the electronic/computer document * Subjective Chief complaint: left heel [...] I O ending at 0700: 09/11 0700 04 1900 Intake Total Output Total 1000 Balance -1000 Number 0 Incontinent Voids Number Voids 0 Output, Urine 1000 Dietitian nutrition assessment The data set between the solid lines has been imported from the dietitian's assessment. BMI Calculated: 26.7 Nutrition related diagnosis: Nutrition diagnosis details: Nutrition problem: Altered nutrition labs Nutrition etiology: DM Nutrition signs and symptoms: HYPER/HYPOGLYCEMIA, A1C >14 Nutrition prescription: CONTINUE DM DIET Dietitian name: You Palmer, DIET Assessment completed: 09/09/22 Physical Exam General appearance: alert, awake, oriented, conversational, mental status normal Wound/incision: Location: left foot Site condition: dp/pt 2/4 left. light touch decreased left foot. ulcer starting at posterior left heel. eccymosis noted. early likely stage 1. left ankle has edema. pain with aggressive ROM left ankle. LE vascular pulse assess: 2+ L posterior [...] Impression By: Yared Mares M.D. Diagnosis, Assessment Plan Free Text A P: DM with neuropathy early decub ulcer left heel OA/edema left ankle DTI dorsal left midfoot zinc oxide to foot and heel foam to heel on IV abx on PO gabapentin offloading boot joan wraps to ankle, only when OOB with therapy. Consultants: cardiology, endocrinology, hospitalist, infectious disease, podiatry at 0804 RPT #:[id number] END OF REPORT [facility] 2022-09-11 07:59:00 [facility] Gastroenterology Progress Note REPORT#:[id number] REPORT STATUS: Signed DATE:09/11/22 TIME: 0759 PATIENT: KARMA ROWLAND UNIT #: [id number] ROOM/BED: [place] [address] : 63 AGE: 56 SEX: M ATTEND: Mj Vences MD ADM AUTHOR: Kassie Avitia MD * ALL edits or amendments must be made on the electronic/computer document * Subjective HPI: Patient is a 56-year-old male with history of diabetes mellitus type 2 and hypertension who was initially admitted for altered mental status and right- sided foot infection. [...] years Anemia likely secondary to chronic kidney disease. Can consider video capsule endoscopy as outpt Will follow Consultants: cardiology, endocrinology, hospitalist, infectious disease, podiatry at 0800 RPT #:[id number] END OF REPORT [facility] 2022-09-11 07:35:00 [facility] ([facility]) Nephrology Progress Note REPORT#:[id number] REPORT STATUS: Signed DATE:09/11/22 TIME: 07 PATIENT: KARMA ROWLAND UNIT #: [id number] ROOM/BED: [place] [address] : 63 AGE: 56 SEX: M ATTEND: Mj Vences MD ADM AUTHOR: Barrera Ramírez MD * ALL edits or amendments must be made on the electronic/computer document * Subjective Chief complaint: Infected foot HPI: Patient seen and evaluated on 09/09/2022, note started, [...] change from initial, feels okay. Review of Systems Constitutional: Reports: [...] edema, non-tender Musculoskeletal: no CVA tenderness, no tenderness Neuro/QUANTITATIVE ANALYST: alert, normal speech Considered stroke alert: no [...] (Auto) (14.0 - 32.0 %) 15.5 16.1 [place] % (Auto) (4.8 - 9.0 %) 8.5 9.2 H Eos % (Auto) (0.3 - 3.7 %) 5.5 H 4.7 H Baso % (Auto) (0.0 - 2.0 %) 0.4 0.4 Neut # (Auto) (2.0 - 7.6 x10 3/uL) 5.94 6.38 Lymph # (Auto) (1.0 - 3.8 x10 3/uL) 1.33 1.49 [place] # (Auto) (0.1 - 0.8 x10 3/uL) [...] and laboratories reviewed. Diabetes mellitus: Insulin: Monitor blood sugar closely and adjust medications as needed, followed by endocrinology. Hypertension: Blood pressure is not well controlled, increase Coreg to 12.5 mg p.o. twice daily: Monitor blood pressure closely and adjust medications as needed Right foot gangrene/infection status post right BKA Anemia: Status post EGD and colonoscopy which were negative for active GI bleeding, patient had work-up in July 2022 which showed very high B12, normal folate, very low iron saturation but very high ferritin which was likely related to his infection, likely patient is very iron deficient, will repeat lab and give IV iron if needed. We will check serum immunofixation. Acute kidney injury: We will check renal bladder ultrasound, check postvoid residual, check urine protein creatinine ratio Hypomagnesemia: We will supplement 09/10/2022 laboratory this morning showed sodium 135, potassium 4.2, CO2 21, BUN 25, creatinine 1.9 continues to worsen, etiology unclear, however his development some eosinophilia not sure if he is developing AIN, suggest changing cefepime to a different class of antibiotic if possible, will check renal bladder ultrasound 09/11/2022 laboratory this morning showed sodium 134, potassium 4.3, CO2 22, BUN 26, creatinine 2 up from 1.9, hopefully creatinine is plateauing, renal ultrasound negative. Consultants: cardiology, endocrinology, hospitalist, infectious disease, podiatry at 0939 RPT #:[id number] END OF REPORT [facility] 2022-09-11 06:12:00 [facility] ([facility]) Pain Management Progress Note REPORT#:[id number] REPORT STATUS: Signed DATE:09/11/22 TIME: 611 PATIENT: KARMA ROWLAND UNIT #: [id number] ROOM/BED: [place] [address] : 63 AGE: 56 SEX: M ATTEND: Mj Vences MD ADM AUTHOR: Charlie Quiroga LOG ROPER * ALL edits or amendments must be made on the electronic/computer document * Charlie Quiroga 09/11/22 0612: Subjective [...] fever/chills, chest pain, orthopnea, nausea/vomiting, pruritus, or hallucinations. 14 point ROS undertaken unremarkable except as noted Objective General VS/I O: Vital Signs Date Temp Pulse Resp B/P B/P Mean Pulse Ox FiO2 09/10 97.5-98.2 70-80 16-18 147-153/71-79 96.5-103.6 96-99 Last Documented: Result Date Time Pulse Ox 96 09/10 2314 B/P 152/78 09/10 2313 B/P Mean 102.5 09/104 Temp 97.5 09/10 2314 Pulse 77 09/10 2314 Resp 16 09/10 231 O2 Delivery Room air 09/10 1855 O2 [...] Physical Exam General appearance: alert, awake, oriented, pleasant Head/eyes: atraumatic, EOMI, normocephalic, normal conjunctiva/sclera, PERRLA ENT: normal ear left, normal ear right, normal nose, normal pharynx, moist mucosal membranes Neck: full range of motion, no lymphadenopathy, supple/no meningismus Cardiovascular: regular rate rhythm Respiratory: clear to auscultation, no distress, aerating well Abdomen: soft, non-tender, no distention, active bowel sounds in all quarants. Abdomen quadrants LLQ normal bowel sounds, LUQ normal bowel sounds, RLQ normal bowel sounds, RUQ normal bowel sounds Extremities: moves all, no edema, pedal pulses Neuro/QUANTITATIVE ANALYST: 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, no sensory deficits, CNII-XII grossly intact Considered stroke alert: no [...] 1503 IMPRESSION: No acute findings. Impression By: Yarde Mares M.D. Diagnosis, Assessment Plan Free text A P: A/P: Patient is a 56 year old male who presents with: Recent prostate abscess -Status post TURP with unroofing of abscess -IV antibiotics with vancomycin until 09-24-2022 Acute postoperative pain, right foot and ankle gangrene, requiring BKA -Patient is at risk for further amputations or loss of limb due to comorbid conditions -Status post right BKA 08/28/2022 -DC [place] 10/325 1 tablet p.o. every 4 hours as needed pain scale 4 10 -Tylenol 650 mg p.o. every 6 hours as needed pain scale 1 3 -Dilaudid 0.5 mg IV [...] Hypertension -We will monitor hypertension and tachycardia due to pain, and hypotension as well as bradycardia secondary over sedation with narcotics -Hydralazine as needed Elevated LFTs -08/20/22-AST 51, ALT 22 -09/03/2022-AST 15, ALT 7 -Patient will require close monitoring since he is using narcotics with Tylenol Impaired functional mobility, balance, gait, and endurance -PT/OT Antalgic/Impaired gait -PT/OT -Improve strength, endurance, self-care, gait, balance, ADLs -Fall precautions per unit protocol -Pain medications as outlined above Constipation -We will monitor while utilizing opioid narcotic medications. -Adequate fluid intake also discussed. -Colace 100 mg p.o. twice daily as needed -Dulcolax 10 mg rectally daily as needed -Senna lax 8.6mg daily -Miralax 17gm daily -manageable Disposition: Past Medical History: Prostate abscess, right foot foot and ankle gangrene, diabetes, hypertension, hyperlipidemia Past Surgical History: TURP, right BKA Family History: Noncontributory Social History: Denies tobacco, alcohol, or drug use Allergies: NKDA Patient has failed conservative medical therapy. Patient will require monitoring while utilize narcotic medications [...] whom agrees. Thank you for the consultation. [place] ORCHESTRA LEADER: -database searched, no information found Kingsley Ng 09/29/22 4179: Attestations Physician Attestation Agree w/findings plan: The patient was seen and examined by Charlie Quiroga. I personally developed the care plan, which was continued by the mid-level provider. I was immediately available. at 1247 at 8271 RPT #:[id number] END OF REPORT [facility] 2022-09-10 19:53:00 [facility]) Podiatry Progress Note REPORT#:[id number] REPORT STATUS: Signed DATE:09/10/22 TIME: 1952 PATIENT: KARMA ROWLAND UNIT #: [id number] ROOM/BED: [facility] : 63 AGE: 56 SEX: M ATTEND: Mj Vences MD ADM AUTHOR: Liam Jeffrey DPM * ALL edits or amendments must be made on the electronic/computer document * Subjective Chief complaint: left heel [...] imported from the dietitian's assessment. BMI Calculated: 26.7 Nutrition related diagnosis: Nutrition diagnosis details: Nutrition problem: Altered nutrition labs Nutrition etiology: DM Nutrition signs and symptoms: HYPER/HYPOGLYCEMIA, A1C >14 Nutrition prescription: CONTINUE DM DIET Dietitian name: You Palmer, DIET Assessment completed: 09/09/22 Physical Exam General appearance: alert, awake, oriented Wound/incision: Location: left foot Site condition: dp/pt 2/4 left. light touch decreased left foot. ulcer starting at posterior left heel. eccymosis noted. early likely stage 1. left ankle has edema. pain with aggressive ROM left ankle. LE vascular pulse assess: 2+ L posterior [...] % (Auto) (14.0 - 32.0 %) 15.5 [place] % (Auto) (4.8 - 9.0 %) 8.5 Eos % (Auto) (0.3 - 3.7 %) 5.5 H Baso % (Auto) (0.0 - 2.0 %) 0.4 Neut # (Auto) (2.0 - 7.6 x10 3/uL) 5.94 Lymph # (Auto) (1.0 - 3.8 x10 3/uL) 1.33 [place] # (Auto) (0.1 - 0.8 x10 3/uL) [...] (0.0 - 0.1 x10 3/uL) 0.00 Recent Impressions: ULTRASOUND - US RETROPERITONEAL COM 09/10 1311 Report Impression - Status: SIGNED Entered: 09/10/2022 1503 IMPRESSION: No acute findings. Impression By: Yared Mares M.D. Diagnosis, Assessment Plan Free Text A P: DM with neuropathy early decub ulcer left heel OA/edema left ankle DTI dorsal left midfoot zinc oxide to foot and heel foam to heel on IV abx offloading boot joan wraps to ankle, only when OOB with therapy. Consultants: cardiology, endocrinology, hospitalist, infectious disease, podiatry at 1954 RPT #:[id number] END OF REPORT [facility] 2022-09-10 17:52:00 [facility] ([facility]) Endocrinology Progress Note REPORT#:[id number] REPORT STATUS: Signed DATE:09/10/22 TIME: 1751 PATIENT: KARMA ROWLAND UNIT #: [id number] ROOM/BED: [place] [address] : 61 AGE: 56 SEX: M ATTEND: Mj Vences MD ADM AUTHOR: Braxton Chapin MD * ALL edits or amendments must be made on the electronic/computer document * Subjective Patient reports: no complaints Objective General VS: Last Documented: Result Date Time Pulse Ox 99 09/10 1627 B/P 147/78 09/10 1627 B/P Mean 100.9 09/10 1627 O2 Delivery Room air 09/10 1627 Temp 36.6 09/10 1627 Pulse 75 09/10 [...] % (Auto) (14.0 - 32.0 %) 15.5 [place] % (Auto) (4.8 - 9.0 %) 8.5 Eos % (Auto) (0.3 - 3.7 %) 5.5 H Baso % (Auto) (0.0 - 2.0 %) 0.4 Neut # (Auto) (2.0 - 7.6 x10 3/uL) 5.94 Lymph # (Auto) (1.0 - 3.8 x10 3/uL) 1.33 [place] # (Auto) (0.1 - 0.8 x10 3/uL) [...] % (Auto) (14.0 - 32.0 %) 16.1 [place] % (Auto) (4.8 - 9.0 %) 9.2 H Eos % (Auto) (0.3 - 3.7 %) 4.7 H Baso % (Auto) (0.0 - 2.0 %) 0.4 Neut # (Auto) (2.0 - 7.6 x10 3/uL) 6.38 Lymph # (Auto) (1.0 - 3.8 x10 3/uL) 1.49 [place] # (Auto) (0.1 - 0.8 x10 3/uL) [...] (0.3 - 2.3 %) 1.3 Laboratory Tests: 09/0817 1611 1318 1045 1033 0616 Chemistry POC [...] (Auto) (14.0 - 32.0 %) 13.7 L [place] % (Auto) (4.8 - 9.0 %) 7.2 Eos % (Auto) (0.3 - 3.7 %) 4.8 H Baso % (Auto) (0.0 - 2.0 %) 0.3 Neut # (Auto) (2.0 - 7.6 x10 3/uL) 6.64 Lymph # (Auto) (1.0 - 3.8 x10 3/uL) 1.24 [place] # (Auto) (0.1 - 0.8 x10 3/uL) [...] the abdomen. Impression By: [email or web address] - Roger Parar M.D. ULTRASOUND - [facility] 09/05 1146 Report Impression - Status: SIGNED Entered: 09/05/2022 1333 IMPRESSION: 1. No evidence of deep vein thrombosis. 2. Complex heterogeneous hypoechoic fluid collection in the left calf region measuring 8.4 x 2.8 x 2.5 cm; there is no internal vascularity or peripheral hyperemia. May represent a hematoma. Impression By: [id number] - Mert Ga M.D. RADIOLOGY - XR CHEST 1 V 09/05 1432 Report Impression - Status: SIGNED Entered: 09/05/2022 1515 IMPRESSION: Minimal bibasilar pulmonary opacities Impression By: TipTDO - Bishop Mares M.D. Laboratory Tests: 09/04 09/04 09/04 09/04 09/04 1630 1557 1100 1031 0816 Chemistry POC Glucose (70 - 110 MG/DL) 128 H 107 99 Hematology Hgb (12.5 - 16.9 g/dL) 7.7 L Hct (37.5 - 50.7 %) 23.7 L Toxicology Vancomycin Trough (10.0 - 20.0 mcg/mL) 12.8 09/04 09/04 09/03 09/03 0721 0540 194 1836 Chemistry POC Glucose (70 - 110 MG/DL) 87 124 H Hematology Hgb (12.5 - 16.9 g/dL) 6.8 L Hct (37.5 - 50.7 %) 21.2 L Toxicology Vancomycin Peak (30 - 40 MCG/ML) 27.4 L Microbiology: Date/Time Procedure - Status Source Growth 09/04 1037 Occult Blood - COLB STOOL 1.Diabetes mellitus type 2 uncontrolled complications. 2. 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 4. Sepsis 5. Prostate abscess. 6. Anemia Blood sugar 156-213 mg/dL.H/H 8.6/26.1 Adjust insulin dose. PT and OT. at 1752 RPT #:[id number] END OF REPORT [facility] 2022-09-10 15:59:00 [facility] ([facility]) Infectious Dis. Progress Note REPORT#:[id number] REPORT STATUS: Signed DATE:09/10/22 TIME: 1559 PATIENT: KARMA ROWLAND UNIT #: [id number] ROOM/BED: [place] [address] : 61 AGE: 56 SEX: M ATTEND: Mj Vences MD ADM AUTHOR: Merry Wolff MD * ALL edits or amendments must be made on the electronic/computer document * Subjective HPI: PT is a [...] today 09/09 doing well, dressing changed from right BKA; rob intact, no drainage, no erythema no swelling 09/10 doing well, doing well, NAD Patient reports: No: cough, diarrhea, fever, headache, nausea, shortness of breath. Portions of this section were scribed by Jill Quintero on 09/10/22 at 1604 Objective General VS/I O: Vital Signs Date Temp Pulse Resp B/P B/P Mean Pulse Ox FiO2 09/09-09/10 97.3-98.2 80-84 - 146-165/71-83 96.5-110.6 95-97 Last Documented: Result Date [...] awake, oriented Head/Eyes: atraumatic, clear cornea, EOMI, normal conjunctiva/sclera, normal eyelids/periorb, normocephalic, PERRL ENT: moist mucosal membranes, normal dentition Neck: full range of motion Cardiovascular: normal heart sounds, regular rate rhythm Respiratory: clear to auscultation, aerating well Abdomen: non-tender, normal bowel sounds, soft Extremities: moves all, right BKA Left foot wound +dressing in place Neuro/QUANTITATIVE ANALYST: alert, oriented X 3 Considered stroke alert: no Skin: dry, intact Results Findings/Data: Laboratory Tests 09/10 09/10 09/10 09/09 09/09 [facility] 0545 0541 1911 1606 Chemistry Sodium (134 [...] % (Auto) (14.0 - 32.0 %) 15.5 [place] % (Auto) (4.8 - 9.0 %) 8.5 Eos % (Auto) (0.3 - 3.7 %) 5.5 H Baso % (Auto) (0.0 - 2.0 %) 0.4 Neut # (Auto) (2.0 - 7.6 x10 3/uL) 5.94 Lymph # (Auto) (1.0 - 3.8 x10 3/uL) 1.33 [place] # (Auto) (0.1 - 0.8 x10 3/uL) [...] Laboratory Tests: 09/10 09/10 09/10 09/10 1430 [facility] 0545 0541 Chemistry Sodium (134 [...] % (Auto) (14.0 - 32.0 %) 15.5 [place] % (Auto) (4.8 - 9.0 %) 8.5 Eos % (Auto) (0.3 - 3.7 %) 5.5 H Baso % (Auto) (0.0 - 2.0 %) 0.4 Neut # (Auto) (2.0 - 7.6 x10 3/uL) 5.94 Lymph # (Auto) (1.0 - 3.8 x10 3/uL) 1.33 [place] # (Auto) (0.1 - 0.8 x10 3/uL) [...] % (Auto) (14.0 - 32.0 %) 16.1 [place] % (Auto) (4.8 - 9.0 %) 9.2 H Eos % (Auto) (0.3 - 3.7 %) 4.7 H Baso % (Auto) (0.0 - 2.0 %) 0.4 Neut # (Auto) (2.0 - 7.6 x10 3/uL) 6.38 Lymph # (Auto) (1.0 - 3.8 x10 3/uL) 1.49 [place] # (Auto) (0.1 - 0.8 x10 3/uL) [...] findings. Impression By: Yared Mares M.D. Medication(s) Ordered: Anti-Infective Agents Sig/Jan Start [...] 09/10 Sodium Chloride 10 ML IV 09/13 205 0841 Blood Formation,Coagulation Sig/Jan Start time Last [...] Human Lispro 5 UNIT 09/03 0730 AC 09/10 SUBQ 10/03 0729 1134 Local Anesthetics (Parenteral) Sig/Jan Start time Last Medication Dose Route Stop Time Status Admin Lidocaine 1 PATCH DAILY 09/03 899 AC 09/10 TOPICAL 10/03 0859 0840 Skin And Mucous Membrane Agent Sig/Jan Start time Last Medication Dose Route Stop Time Status Admin Zinc Oxide 1 APPLIC DAILY 09/04 899 AC 09/10 TOPICAL 10/04 0859 0842 Vitamins Sig/Jan Start time Last Medication Dose Route Stop Time Status Admin Folic Acid 2 MG DAILY 09/09 899 AC 09/10 PO 10/09 0859 0838 Multivitamins 1 TAB DAILY 09/09 899 AC 09/10 PO 10/09 0859 0838 Dose [...] sets. -Repeat blood cultures 08/21/2022 are already positive for MRSA in 2 out of 2 sets, suggesting persistent high-grade bacteremia. -TTE 08/18/2022 negative for any obvious vegetations. -08/28 neg -JIMENA 09/02 neg *Prostatic abscess -s/p transrectal aspiration and unroofing on 08/26 -cx MRSA, citrobacter (r-cefazolin) Enterococcus raffinosus (S-amp,pcn, vancomycin), bacteriodes *ERIKA *Hyponatremia *Diabetic neuropathy *Diabetes mellitus type 2 *Hypertension *anemia 09/08 -cont on Cefepime and vancomycin til 5/3 for treatment of Prostate abscess -follow esr and crp -EGD today 09/09 -on cefepime and vancomycin til 5/3 for treatment of prostate abscess 09/10 on cefepime and vancomycin til 5/3 for treatment of prostate abscess check esr and crp in am Consultants: cardiology, endocrinology, hospitalist, infectious disease, podiatry Portions of this section were scribed by Jill Quintero on 09/10/22 at 1604 at 1109 RPT #:[id number] END OF REPORT [facility] 2022-09-10 15:50:00 [facility] ([facility]) Pharmacy Prog.Note-Vancomycin REPORT#:[id number] REPORT STATUS: Signed DATE:09/10/22 TIME: 1550 PATIENT: KARMA ROWLAND UNIT #: [id number] ROOM/BED: [place] [address] : 63 AGE: 56 SEX: M ATTEND: Mj Vences MD ADM AUTHOR: Joselyn Stock [facility] * ALL edits or amendments must be made on the electronic/computer document * Vancomycin Vancomycin Medication Therapy Goal: Random 15-20 mcg/mL Indication for treatment: OM and MRSA Bacteremia VS and I/O: Vital Signs Date Temp Pulse Resp B/P B/P Mean Pulse Ox FiO2 09/07-09/10 97.3-98.8 79-98 10-20 131-177/64-90 87.1-118.8 94-99 72 hours ending at 0700 09/10 0709/09 19009/09 19009/08 0700 1900 Intake 715 250.00 2000 Total Output 850 600 Total Balance 715 -850 250.00 1400 Intake, IV 250.00 Intake, 715 2000 Oral Number 1 2 Bowel Movements Number 0 0 Incontinen t Voids Number 0 0 Voids Output, 850 600 Urine 72 Hour I O Total 09/10 0709/08 0700 Intake Total 715 250.00 2000 Output [...] to cefepime/ vancomycin. Pharmacy consulted to dose vancomycin. Consulting provider: Merry Wolff Indication: Osteomyelitis of the Talus, Calcaneus, and Navicular Bone; MRSA Bacteremia; Prostatic Abscess Goal Random: 15-20 mcg/mL Concomitant Abx: Cefepime Duration of Therapy: 09/24/22 Assessment: Labs/Vitals * Afebrile/24hrs, WBC 8.6, BUN/SCr 25/1.9, UOP/24hrs not documented Micro * MRSA nares (09/03) positive * WCx (08/26) Citrobacter Farmeri (R Ampicillin, Cefazolin), Enterococcus Raffinosus (R Tetracycline), MRSA Imaging * CT Abd/Pelvis (08/18) possible abscess * RLE MRI (08/21) osteomyelitis of the talus, calcaneus, navicular bone Level * Peak (09/03) 27.7 mcg/mL; Trough (09/04) 12.8 mcg/mL; Calculated AUC 462 mcg* hr/mL, therefore tehrapeutic on Vancomycin 1gm IV q24h * Trough (09/06) * Random (09/07 @0510) 14.7 mcg/mL; s/p Vanc 1gm IV x1 09/05 @2009; Calculated half-life = 35.8hrs * Random (09/08 @1045) 15.8 mcg/mL; s/p Vanc 750mg IV x1 09/07 @1102 * Given patient's renal function has been elevated, yet stable, Vancomycin 500mg IV q24h was initiated * Random (09/09 @1403) 15.4 mcg/mL; s/p Vanc 500mg IV x1 09/08 @1403 * Random (09/09 @1430) 15.7 mcg/mL; s/p Vanc 500mg IV x1 09/09 @1553 Plan: * Patient's renal function worsened today, therefore will continue to dose by random level; will give Vancomycin 500mg IV x1 * Draw random level 09/11 @1500 at 1553 RPT #:[id number] END OF REPORT [facility] 2022-09-10 14:42:00 [facility] ([facility] Gastroenterology Progress Note REPORT#:[id number] REPORT STATUS: Signed DATE:09/10/22 TIME: 1442 PATIENT: KARMA ROWLAND UNIT #: [id number] ROOM/BED: [place] [address] : 63 AGE: 56 SEX: M ATTEND: Mj Vences MD ADM AUTHOR: Kassie Avitia MD * ALL edits or amendments must be made on the electronic/computer document * Subjective HPI: Patient is a 56-year-old male with history of diabetes mellitus type 2 and hypertension who was initially admitted for altered mental status and right- sided foot infection. [...] years Anemia likely secondary to chronic kidney disease. Can consider video capsule endoscopy as outpt Will follow Consultants: cardiology, endocrinology, hospitalist, infectious disease, podiatry at 1444 RPT #:[id number] END OF REPORT [facility] 2022-09-10 10:50:00 [facility] Hospitalist Progress Note REPORT#:[id number] REPORT STATUS: Signed DATE:09/10/22 TIME: 1050 PATIENT: KARMA ROWLAND UNIT #: [id number] ROOM/BED: [place] [address] : 63 AGE: 56 SEX: M ATTEND: Mj Vences MD ADM AUTHOR: Wilbert Ramires MD * ALL edits or amendments must be made on the electronic/computer document * Subjective Chief complaint: admitted to [...] (SODIUM CHLORIDE 0.9% 100 ML) 100 ML Ferric Sodium Gluconate Complex (FERRLECIT) 125 [...] (SODIUM CHLORIDE 0.9% 100 ML) 100 ML Insulin Glargine (Lantus/Semglee) 5 UNIT BEDTIME [...] rate rhythm Respiratory: aerating well, clear to auscultation Abdomen: non-tender, normal bowel sounds Genitourinary: no flank pain Extremities: moves all, normal capillary refill Musculoskeletal: normal inspection, painless range of motion Neuro/QUANTITATIVE ANALYST: alert, oriented X 3, normal speech Considered stroke alert: no Skin: dry, intact Psychiatry: normal affect, normal judgment/insight Results Findings/Data: Laboratory Tests 09/10 09/10 09/10 [...] % (Auto) (14.0 - 32.0 %) 15.5 [place] % (Auto) (4.8 - 9.0 %) 8.5 Eos % (Auto) (0.3 - 3.7 %) 5.5 H Baso % (Auto) (0.0 - 2.0 %) 0.4 Neut # (Auto) (2.0 - 7.6 x10 3/uL) 5.94 Lymph # (Auto) (1.0 - 3.8 x10 3/uL) 1.33 [place] # (Auto) (0.1 - 0.8 x10 3/uL) [...] 15.4 Diagnosis, Assessment Plan Consultants: cardiology, endocrinology, hospitalist, infectious disease, podiatry Free Text DxA P Notes Free text DxA P notes: Gangrene of right foot s/p Below- knee amputation Prostate abscess MRSA bacteremia Hx of Diabetes, Diabetic neuropathy HTN PLANS: Continue with ABx as dierected- currently on Daptomycin and Cefepime Continue with PT/OT per primary Fall precautions Nutritional support pain control fall precautions bowel regimen Wound care as directed Hepain PPX Continue with supportive / care follow hgb closely and transfuse as needed blood sugars dipping down - endo following labs noted. watch Hgb IV iron BP remains not at target. increase Coreg at 1130 RPT #:[id number] END OF REPORT [facility] 2022-09-10 10:36:00 [facility] ([facility]) Cardiology Progress Note REPORT#:[id number] REPORT STATUS: Signed DATE:09/10/22 TIME: 103 PATIENT: KARMA ROWLAND UNIT #: [id number] ROOM/BED: [place] [address] : 63 AGE: 56 SEX: M ATTEND: Mj Vences MD ADM AUTHOR: Rohit Benitez [facility] * ALL edits or amendments must be made on the electronic/computer document * Rohit Benitez 09/10/22 1036: Subjective Chief complaint: weakness Free Text Subj Notes Free Text Subj Notes: Patient seen and evaluated in the gym. Overall doing well without shortness of breath or chest pain. Continued to have lower extremity edema. Objective General VS/I O: 24 hour [...] (SODIUM CHLORIDE 0.9% 100 ML) 100 ML Ferric Sodium Gluconate Complex (FERRLECIT) 125 [...] (SODIUM CHLORIDE 0.9% 100 ML) 100 ML Insulin Glargine (Lantus/Semglee) 5 UNIT BEDTIME [...] regular rate and rhythm, no ectopy, no gallop Respiratory: clear to auscultation, no distress Abdomen: soft, non-tender Lower extremity: LE assessment: edema, normal temperature Neuro/QUANTITATIVE ANALYST: alert, oriented X 3 Considered stroke alert: no Wound/incision: Location: right bka Psychiatry: normal affect, normal judgment/insight, normal mood Results Findings/Data: Laboratory Tests 09/10 09/10 09/10 09/09 09/09 1007 0545 0551 1911 1606 Chemistry Sodium (134 - 147 [...] % (Auto) (14.0 - 32.0 %) 15.5 [place] % (Auto) (4.8 - 9.0 %) 8.5 Eos % (Auto) (0.3 - 3.7 %) 5.5 H Baso % (Auto) (0.0 - 2.0 %) 0.4 Neut # (Auto) (2.0 - 7.6 x10 3/uL) 5.94 Lymph # (Auto) (1.0 - 3.8 x10 3/uL) 1.33 [place] # (Auto) (0.1 - 0.8 x10 3/uL) [...] 1.89 Diagnosis, Assessment Plan Consultants: cardiology, endocrinology, hospitalist, infectious disease, podiatry Free [...] rehab for physical therapy. Known cardiac history of hypertension and hyperlipidemia. Vital signs stable. Echocardiogram with [...] BMP in the morning. Supportive care. Plan of care discussed with [...] RN and Dr. Parham. Napoleon Parham 09/11/22 0807: Diagnosis, Assessment Plan Additional comments: Patient was seen and examined at bedside, agree with above assessment and plan as documented by nurse practitioner. Will follow. at 1810 at 0823 RPT #:[id number] END OF REPORT [facility] 2022-09-10 07:33:00 [facility] ([facility] Nephrology Progress Note REPORT#:[id number] REPORT STATUS: Signed DATE:09/10/22 TIME: 732 PATIENT: KARMA ROWLAND UNIT #: [id number] ROOM/BED: [place] [address] : 63 AGE: 56 SEX: M ATTEND: Mj Vences MD ADM AUTHOR: Barrera Ramírez MD * ALL edits or amendments must be made on the electronic/computer document * Subjective Chief complaint: Infected foot HPI: Patient seen and evaluated on 09/09/2022, note started, [...] change from initial, feels okay. Review of Systems Constitutional: Reports: [...] (SODIUM CHLORIDE 0.9% 100 ML) 100 ML Ferric Sodium Gluconate Complex (FERRLECIT) 125 [...] (SODIUM CHLORIDE 0.9% 100 ML) 100 ML Insulin Glargine (Lantus/Semglee) 5 UNIT BEDTIME [...] edema, non-tender Musculoskeletal: no CVA tenderness, no tenderness Neuro/QUANTITATIVE ANALYST: alert, normal speech Considered stroke alert: no [...] (14.0 - 32.0 %) 16.1 13.7 L [place] % (Auto) (4.8 - 9.0 %) 9.2 H 7.2 Eos % (Auto) (0.3 - 3.7 %) 4.7 H 4.8 H Baso % (Auto) (0.0 - 2.0 %) 0.4 0.3 Neut # (Auto) (2.0 - 7.6 x10 3/uL) 6.38 6.64 Lymph # (Auto) (1.0 - 3.8 x10 3/uL) 1.49 1.24 [place] # (Auto) (0.1 - 0.8 x10 3/uL) [...] and laboratories reviewed. Diabetes mellitus: Insulin: Monitor blood sugar closely and adjust medications as needed, followed by endocrinology. Hypertension: Blood pressure is not well controlled, increase Coreg to 12.5 mg p.o. twice daily: Monitor blood pressure closely and adjust medications as needed Right foot gangrene/infection status post right BKA Anemia: Status post EGD and colonoscopy which were negative for active GI bleeding, patient had work-up in July 2022 which showed very high B12, normal folate, very low iron saturation but very high ferritin which was likely related to his infection, likely patient is very iron deficient, will repeat lab and give IV iron if needed. We will check serum immunofixation. Acute kidney injury: We will check renal bladder ultrasound, check postvoid residual, check urine protein creatinine ratio Hypomagnesemia: We will supplement 09/09/2022 laboratory this morning showed sodium 135, potassium 4.2, CO2 21, BUN 25, creatinine 1.9 continues to worsen, etiology unclear, however his development some eosinophilia not sure if he is developing AIN, suggest changing cefepime to a different class of antibiotic if possible, will check renal bladder ultrasound Consultants: cardiology, endocrinology, hospitalist, infectious disease, podiatry at 0933 RPT #:[id number] END OF REPORT [facility] 2022-09-10 06:03:00 [facility] Rehab Progress Note REPORT#:[id number] REPORT STATUS: Signed DATE:09/10/22 TIME: 0603 PATIENT: KARMA ROWLAND UNIT #: [id number] ROOM/BED: [place] [address] : 61 AGE: 56 SEX: M ATTEND: Mj Vences MD ADM AUTHOR: Guero Candelaria * ALL edits or amendments must be made on the electronic/computer document * Subjective Chief complaint: Rehab follow-up Doing better + BM Eating 75-100% Denies DICKENS/N/V/D/CP 14 systems reviewed and neg. except that [...] is wearing a nestor-tech orthotic for right knee/BKA protection. Prior to [...] (SODIUM CHLORIDE 0.9% 100 ML) 100 ML Ferric Sodium Gluconate Complex (FERRLECIT) 125 [...] (SODIUM CHLORIDE 0.9% 100 ML) 100 ML Insulin Glargine (Lantus/Semglee) 5 UNIT BEDTIME [...] PT daily note comment: s patient reported decreased [...] MIN A, NESTOR TECH ON ,RLE STUMP JOAN WRAPPED, EDUCATED SPOUSE ON FIGURE 8. PATIENT WORKED ON WC MOB WITH SBA FOR SAFETY , IN THE GYM PATIENT OWRKED ON SIT TO STANDS WITH MOD A, CUES TO PUSHOFF FROM WC ARM REST. PATIENT WORKED ON DYNAMIC BALANCE EX, [...] TRAINING FOR FIGURE 8 JOAN WRAP Physical Exam General appearance: alert, awake Psych: alert, normal affect, oriented x 3 HEENT: anicteric, sclera clear Neck: supple, no JVD Cardiovascular: S1/S2, no murmur Respiratory: aerating well, clear bilaterally Abdomen: bowel sounds present, non-distended, soft, non-tender Skin: no rash, R BKA HEALING. 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 Leroy Significant impairment in self-care, ADLs and functional mobility Impaired mobility and gait Acute postoperative pain right BKA Diabetic polyneuropathy DKA, DM 2, poorly controlled, A1c greater than 14 PAD MRSA bacteremia/sepsis-treated on acute ERIKA Severe hyponatremia-resolved HTN Acute on chronic anemia requiring multiple transfusions, possible GI bleed Left calf hematoma Edema and clinical arthritis left ankle Early decubitus to left heel/DTI dorsal left midfoot Prostatic abscess 08/26: S/p transrectal ultrasound aspiration of abscess and transurethral resection of prostate and unroofing of abscess Echo: EF 55-59%, grade 1 diastolic dysfunction 09/02: JIMENA negative for vegetation MRSA OF NARES 09/08:s/p EGD and colonoscopy. EGD showed mild gastritis. Colonoscopy showed rectal polyp that was resected by snare. Plan: -PLOF: Independent with transfers and gait -Amputee rehab program -Continue PT and OT -15/12 rehabilitation nursing care. -Case management for safe discharge planning. -Decubitus prevention -Early decubitus to left heel/DTI dorsal left midfoot-zinc oxide to the foot, foam, offloading, podiatry managing -DVT prophylaxis-subcutaneous heparin -Strict fall and safety precautions -Work on bed mobility, transfer training, ADLs, pre-gait and gait exercises -Increase endurance and strength -Monitor pain with therapies -OOB to chair -Monitor p.o. intake and nutrition, albumin 1.3, prealbumin less than 5, dietary consultation, protein supplements to promote healing -Continue antibiotics per ID-on cefepime and vancomycin until 10/11 for treatment of prostatic abscess -Tight glycemia control- endocrine on board, insulin adjustments -Endocrinology, ID, podiatry, cardiology, IM consulted -Pain management adjusting pain medications -Anemia, patient required multiple units of PRBCs on acute, FOBT positive -IV Protonix-consult GI-serial H H-no evidence of gross bleeding-discussed with Dr. Trinidad -Constipation-abdominal lbikfffi-MRE-gifimx-CW Senokot and MiraLAX, DSP -Right VUF-uuwwqfe-jhgxucys resolved, dressings changed livba-kabygkm-dzhyhznz NESTOR-TECH -MRSA OF NARES on Bactroban protocol -LLE edema-venous Doppler with complex heterogeneous hypoechoic fluid collection in the left calf region measuring 8.4, 2.8, 2.5 cm suggestive of hematoma. Hold Lasix x3 days. Joan wrap calf -Generalized edema-some shortness of breath and abdominal distention-cardiology gave a dose of IV Lasix-monitor urine output, daily weights -Chest x-ray with minimal basilar pulmonary opacities -Anemia-hemoglobin 8.5, transfused 2 units of PRBC on 09/05 -09/08: s/p EGD and colonoscopy. EGD showed mild gastritis. Colonoscopy showed rectal polyp that was resected by snare. Anemia likely secondary to chronic kidney disease. Consult renal. -Chemistries good, creatinine 1.5, magnesium 1.89 -Advance therapies as tolerated-discussed treatment plan with [...] about team conference, anemia, EGD and colonoscopy, hold anticoagulants for a few days, amputee rehab plan of care, goals, therapies, progress, labs, medications. EMR and MAR is reviewed. All questions answered Rehab attestation: Face to face exam completed. Treatment plan discussed with patient. Meets continued stay criteria. Agree with interdisciplinary treatment plan. at 1500 RPT #:[id number] END OF REPORT [facility] 2022-09-10 05:42:00 [facility] ([facility]) Pain Management Progress Note REPORT#:[id number] REPORT STATUS: Signed DATE:09/10/22 TIME: 05 PATIENT: KARMA ROWLAND UNIT #: [id number] ROOM/BED: [place] [address] : 63 AGE: 56 SEX: M ATTEND: Mj Vences MD ADM AUTHOR: Charlie Quiroga LOG ROPER * ALL edits or amendments must be made on the electronic/computer document * Charlie Quiroga 09/10/22 0542: Subjective Chief complaint: Patient seen and examined. Chart/MAR reviewed. Patient states the pain is not controlled with the use of the [place]. He still requires the IV dilaudid. I explained I'll adjust medications, but need to wean the IV pain medication. Patient being seen for Acute postoperative pain, right foot and ankle gangrene, requiring BKA, Constipation Patient is still requiring medications to help with managing current problems. Patient is requiring IV narcotics to help manage breakthrough pain No fever/chills, chest pain, orthopnea, nausea/vomiting, pruritus, or hallucinations. 14 point ROS undertaken unremarkable except as noted Objective General VS/I O: Vital Signs Date [...] (SODIUM CHLORIDE 0.9% 100 ML) 100 ML Ferric Sodium Gluconate Complex (FERRLECIT) 125 [...] (SODIUM CHLORIDE 0.9% 100 ML) 100 ML Insulin Glargine (Lantus/Semglee) 5 UNIT BEDTIME [...] Exam General appearance: alert, awake, oriented, no respiratory distress Head/eyes: atraumatic, EOMI, normocephalic, normal conjunctiva/sclera, PERRLA ENT: normal ear left, normal ear right, normal nose, normal pharynx, moist mucosal membranes Neck: full range of motion, no lymphadenopathy, supple/no meningismus Cardiovascular: regular rate rhythm Respiratory: clear to auscultation, no distress, aerating well Abdomen: soft, non-tender, no distention, active bowel sounds in all quarants. Abdomen quadrants LLQ normal bowel sounds, LUQ normal bowel sounds, RLQ normal bowel sounds, RUQ normal bowel sounds Extremities: moves all, no edema, pedal pulses Neuro/QUANTITATIVE ANALYST: 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, no sensory deficits, CNII-XII grossly intact Considered stroke alert: no [...] pain, right foot and ankle gangrene, requiring BKA -Patient is at risk for further amputations or loss of limb due to comorbid conditions -Status post right BKA 08/28/2022 -DC Glenrock 10/325 1 tablet p.o. every 4 hours as needed pain scale 4 10 -Tylenol 650 mg p.o. every 6 hours as needed pain scale 1 3 -reduce Dilaudid 0.5 mg IV every 12 hours as needed pain scale 7 10, second line therapy-patient will require close monitoring while using IV narcotics for any deleterious effect -Start Percocet 10/325mg every 4 hours as needed, pain scale 4-10 (09/10) -Lidoderm patch to left ankle daily -IV antibiotics with vancomycin until 09-24-2022 -Local wound care -manageable Diabetic peripheral neuropathy -amitriptyline 25mg PO QHS -Start Gabapentin 100mg every 8 hours (09/10) -manageable Hypertension -We will monitor hypertension and tachycardia due to pain, and hypotension as well as bradycardia secondary over sedation with narcotics -Hydralazine as needed Elevated LFTs -08/20/22-AST 51, ALT 22 -09/03/2022-AST 15, ALT 7 -Patient will require close monitoring since he is using narcotics with Tylenol Impaired functional mobility, balance, gait, and endurance -PT/OT Antalgic/Impaired gait -PT/OT -Improve strength, endurance, self-care, gait, balance, ADLs -Fall precautions per unit protocol -Pain medications as outlined above Constipation -We will monitor while utilizing opioid narcotic medications. -Adequate fluid intake also discussed. -Colace 100 mg p.o. twice daily as needed -Dulcolax 10 mg rectally daily as needed -Senna lax 8.6mg daily -Miralax 17gm daily -manageable Disposition: Past Medical History: Prostate abscess, right foot foot and ankle gangrene, diabetes, hypertension, hyperlipidemia Past Surgical History: TURP, right BKA Family History: Noncontributory Social History: Denies tobacco, alcohol, or drug use Allergies: NKDA Patient has failed conservative medical therapy. Patient will require monitoring while utilize narcotic medications [...] whom agrees. Thank you for the consultation. [place] ORCHESTRA LEADER: -database searched, no information found Kingsley Ng 09/28/222001: Attestations Physician Attestation Agree w/findings plan: The patient was seen and examined by Charlie Quiroga. I personally developed the care plan, which was continued by the mid-level provider. I was immediately available. at 1607 at 2001 RPT #:[id number] END OF REPORT [facility] 2022-09-09 16:51:00 [facility] Endocrinology Progress Note REPORT#:[id number] REPORT STATUS: Signed DATE:09/09/22 TIME: 165 PATIENT: KARMA ROWLAND UNIT #: [id number] ROOM/BED: [place] [address] : 61 AGE: 56 SEX: M ATTEND: Mj Vences MD ADM AUTHOR: Braxton Chapin MD * ALL edits or amendments must be made on the electronic/computer document * Subjective Patient reports: no complaints [...] (SODIUM CHLORIDE 0.9% 100 ML) 100 ML Ferric Sodium Gluconate Complex (FERRLECIT) 125 MG DAILY IV Sodium Chloride (SODIUM CHLORIDE 0.9%) 100 ML Folic Acid (FOLIC ACID) 2 MG DAILY PO Multivitamins (TAB-A-MOHAN) 1 TAB DAILY PO Carvedilol (COREG) 12.5 MG C BK DIN PO Magnesium Sulfate (MAGNESIUM SULFATE 2GM/SWFI 50ML) 50 ML ONCE ONE IV ( DC) Hydromorphone HCl (DILAUDID) 0.5 MG Q6H PRN PRN IV Vancomycin HCl (VANCOMYCIN HCL) 500 MG Q24H IV (DC) Sodium Chloride (SODIUM CHLORIDE 0.9% 100 ML) 100 ML Carvedilol (COREG) 3.125 MG C BK [...] % (Auto) (14.0 - 32.0 %) 16.1 [place] % (Auto) (4.8 - 9.0 %) 9.2 H Eos % (Auto) (0.3 - 3.7 %) 4.7 H Baso % (Auto) (0.0 - 2.0 %) 0.4 Neut # (Auto) (2.0 - 7.6 x10 3/uL) 6.38 Lymph # (Auto) (1.0 - 3.8 x10 3/uL) 1.49 [place] # (Auto) (0.1 - 0.8 x10 3/uL) [...] (Auto) (14.0 - 32.0 %) 13.7 L [place] % (Auto) (4.8 - 9.0 %) 7.2 Eos % (Auto) (0.3 - 3.7 %) 4.8 H Baso % (Auto) (0.0 - 2.0 %) 0.3 Neut # (Auto) (2.0 - 7.6 x10 3/uL) 6.64 Lymph # (Auto) (1.0 - 3.8 x10 3/uL) 1.24 [place] # (Auto) (0.1 - 0.8 x10 3/uL) [...] abdomen. Impression By: [email or web address] - Roger Parra M.D. ULTRASOUND - DUP VEIN UNI/LTD 09/05 1146 Report Impression - Status: SIGNED Entered: 09/05/2022 1333 IMPRESSION: 1. No evidence of deep vein thrombosis. 2. Complex heterogeneous hypoechoic fluid collection in the left calf region measuring 8.4 x 2.8 x 2.5 cm; there is no internal vascularity or peripheral hyperemia. May represent a hematoma. Impression By: [email or web address] - Mert Ga M.D. RADIOLOGY - XR CHEST 1 V 09/05 1432 Report Impression - Status: SIGNED Entered: 09/05/2022 1515 IMPRESSION: Minimal bibasilar pulmonary opacities Impression By: TipTDO - Bishop Mares M.D. Laboratory [...] COLB STOOL 1.Diabetes mellitus type 2 uncontrolled complications. 2. 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 4. Sepsis 5. Prostate abscess. 6. Anemia Blood sugar 125-90 mg/dL.H/H 8.6/26.1 Adjust insulin dose. PT and OT. at 1652 RPT #:[id number] END OF REPORT [facility] 2022-09-09 15:26:00 [facility] ([facility]) Rehab Team Conference REPORT#:[id number] REPORT STATUS: Signed DATE:09/09/22 TIME: 1526 PATIENT: KARMA ROWLAND UNIT #: [id number] ROOM/BED: [place] [address] : 61 AGE: 56 SEX: M ATTEND: Mj Vences MD ADM AUTHOR: Mj Vences MD * ALL edits or amendments must be made on the electronic/computer document * Rehabilitation Team Conference Weekly Team Conference Team conf information: Date of conference: 09/09/22 Conference type: Initial Conference scribe: Columba Drew PTA INTERDISCIPLINARY TEAM MEETING PARTICIPANTS: TITLE NAME MD SELENA Butts RN PT Anthony Ro, PT LEXX Yancey OT CM/TERESA Sinclair CM ST NO ATTENDEE PPSC Amanda Lai, RATE SETTER Staff (8) NO ATTENDEE Staff (9) NO ATTENDEE OTHER NAME CREDENTIALS 1 YOU KOVACSITIAN 2 FUNCTIONAL CHANGE: TYPE ADMISSION TOTAL INTERIM TOTAL CHANGE Self care 20 27 7 Transfer 17 22 5 Mobility 8 8 0 Wheelchair distance: Mobility description: BOWEL AND BLADDER STATUS: Bowel continence admission rating: Bladder continence admission rating: Not applicable Bowel and bladder team conference update: CONTINENT OF BOWEL CAMARENA TO BSD PATENT INTERDISCIPLINARY TEAM UPDATES: LYDIA team conference update: AAOX4 ABLE TO FEED SELF WITH SET UP 1 PERSON ASSIST WITH DRESS AND HYGINE PT team conference update: PROGRESSING WITH PT, S/P R BKA, REQUIRES JM FRO BED MBO, TRANSFERS WITH CGA USING SLIDING BOARD, WILL NEED WC FOR DC, SPOUSE IS PRESENT AND SUPPORTIVE. REPORTS INCREASED SWELLING TO LLE OT team conference update: Pt progressing toward goals, limited by R BKA, pain, deficits w adls and mobility Adls: I to Total assist, Xfers: Moderate assist Rec : Drop arm BSC, sliding board, HHOT ST team conference update: CM or SW team conference update: PATIENT IS FROM HOME WITH A SUPPORTIVE SPOUSE. PLAN TO DC TO HOME WITH NEEDED DME AND HOME HEALTH Other discipline update 1: P.O INTAKE: 75-100% OF RENAL 3 CARB DIET. Other discipline update [...] Twelve steps discharge goal: Med cond/safety concern [place] 150 feet discharge goal: Independent (6) Goal 1 - Bowel function: PATIENT WILL REMAIN CONTINENT OF BOWEL Goal 2 - Bladder function: PATIENT WILL REGAIN BLADDER CONTROL Nursing goal 3: PATIENT WILL BE FREE FROM FALLS DURING STAY Nursing goal 4: PATIENT WILL MAINTAIN SKIN INTEGRITY Nursing goal 5: DISCHARGE PLANNING: Barriers to discharge: Fall risk, Endurance, Pain, Caregiver, NWB RLE, DIFFICULTY WITH TRANSFERS Strategies for D/C barriers: Fall recovery training, Evaluate pain control, Scheduled rest breaks, LE EX, WC MOB, TRANSFER TRAINING, CAREGIVER TRAINING Estimated length of stay in days: 17 Anticipated discharge date: 09/19/22 Discharge date adjustment comment: Identified financial and/or community resource needs: Family/Caregiver training days: [place] day (DATE): 09/18/22 Expected discharge destination: Home Anticipated services upon discharge: Physical therapy, Nursing, Occupational therapy, Home health Anticipated discharge equipment: Drop arm bedside commode, sliding board Impairment group: amputation of limb NOTE Document ONLY ONE Impairment Group Amputation of limb: unilateral lower limb (R BKA) Etiologic diagnosis: Gas gangrene of right foot and ankle S/P R BKA Review of comorbidities: Postoperative anemia, ERKIA, DM, HTN, diabetic neuropathy, HLD MD Review/Recommendations Attestation: This interdisciplinary team conference was led by me and I concur with all decisions made during the team conference and revisions to the individualized overall plan of care. IRF cont stay criteria See my note at 1526 RPT #:[id number] END OF REPORT [facility] 2022-09-09 12:13:00 [facility]) Podiatry Progress Note REPORT#:[id number] REPORT STATUS: Signed DATE:09/09/22 TIME: 1213 PATIENT: KARMA ROWLAND UNIT #: [id number] ROOM/BED: [place] [address] : 63 AGE: 56 SEX: M ATTEND: Mj Vences MD ADM AUTHOR: Liam Jeffrey DPM * ALL edits or amendments must be made on the electronic/computer document * Subjective Chief complaint: left heel ulcer. left ankle pain Patient reports: no chest pain, no cough, no dizziness, no fatigue, no headache, no nausea Objective General VS: Last Documented: Result Date Time Pulse Ox 94 09/09 0709 B/P 140/71 09/09 0709 B/P Mean 93.7 09/09 0709 O2 Delivery Room air 09/09 07 Temp 36.8 09/09 0709 Pulse 88 09/09 0709 Resp 17 09/09 07 O2 Flow Rate 2 09/08 1322 PATIENT [...] 2GM/SWFI 50ML) 50 ML ONCE ONE IV ( DC) Hydromorphone HCl (DILAUDID) 0.5 MG Q6H PRN PRN IV Vancomycin HCl (VANCOMYCIN HCL) 500 MG Q24H IV (DC) Sodium Chloride (SODIUM CHLORIDE 0.9% 100 ML) 100 ML Propofol (DIPRIVAN 200MG/20ML INJECTION) 20 ML .STK-MED [...] 24 hour I O ending at 0700: 18 0700 09/08 1900 Intake Total 250.00 Output Total 850 Balance -850 250.00 Intake, IV 250.00 Number 1 Bowel Movements Number 0 Incontinent Voids Number Voids 0 Output, Urine 850 Dietitian nutrition assessment The data set between the solid lines has been imported from the dietitian's assessment. BMI Calculated: 26.7 Nutrition related diagnosis: Nutrition diagnosis details: Nutrition problem: Altered nutrition labs Nutrition etiology: DM Nutrition signs and symptoms: HYPER/HYPOGLYCEMIA, A1C >14 Nutrition prescription: CONTINUE DM DIET Dietitian name: Klaus Kaiser, DIET Assessment completed: 09/03/22 Physical Exam General appearance: alert, awake, oriented, pleasant, no respiratory distress Wound/incision: Location: left foot Site condition: dp/pt 2/4 left. light touch decreased left foot. ulcer starting at posterior left heel. eccymosis noted. early likely stage 1. left ankle has edema. pain with aggressive ROM left ankle. LE vascular pulse assess: 2+ L posterior tibialis, 2+ L dorsalis pedis Considered stroke alert: no Ulcer: Location: DTI dorsal left midfoot Results Findings/Data: Laboratory Tests: 09/09 09/09 09/09 09/08 1049 0524 [...] % (Auto) (14.0 - 32.0 %) 16.1 [place] % (Auto) (4.8 - 9.0 %) 9.2 H Eos % (Auto) (0.3 - 3.7 %) 4.7 H Baso % (Auto) (0.0 - 2.0 %) 0.4 Neut # (Auto) (2.0 - 7.6 x10 3/uL) 6.38 Lymph # (Auto) (1.0 - 3.8 x10 3/uL) 1.49 [place] # (Auto) (0.1 - 0.8 x10 3/uL) [...] to heel on IV abx offloading boot joan wraps to ankle, only when OOB with therapy. Consultants: cardiology, endocrinology, hospitalist, infectious disease, podiatry at 1214 RPT #:[id number] END OF REPORT [facility] 2022-09-09 11:45:00 [facility] ([facility]) Infectious Dis. Progress Note REPORT#:[id number] REPORT STATUS: Signed DATE:09/09/22 TIME: 1145 PATIENT: KARMA ROWLAND UNIT #: [id number] ROOM/BED: [place] [address] : 63 AGE: 56 SEX: M ATTEND: Mj Vences MD ADM AUTHOR: Merry Wolff MD * ALL edits or amendments must be made on the electronic/computer document * Subjective HPI: PT is a [...] today 09/09 doing well, dressing changed from right BKA; rob intact, no drainage, no erythema no swelling Patient reports: Yes: pain controlled. No: cough, diarrhea, fever, headache, [...] awake, oriented Head/Eyes: atraumatic, clear cornea, EOMI, normal conjunctiva/sclera, normal eyelids/periorb, normocephalic, PERRL ENT: moist mucosal membranes, normal dentition Neck: full range of motion Cardiovascular: normal heart sounds, regular rate rhythm Respiratory: clear to auscultation, aerating well Abdomen: non-tender, normal bowel sounds, soft Extremities: moves all, right BKA Left foot wound +dressing in place Neuro/QUANTITATIVE ANALYST: alert, oriented X 3 Considered stroke alert: [...] % (Auto) (14.0 - 32.0 %) 16.1 [place] % (Auto) (4.8 - 9.0 %) 9.2 H Eos % (Auto) (0.3 - 3.7 %) 4.7 H Baso % (Auto) (0.0 - 2.0 %) 0.4 Neut # (Auto) (2.0 - 7.6 x10 3/uL) 6.38 Lymph # (Auto) (1.0 - 3.8 x10 3/uL) 1.49 [place] # (Auto) (0.1 - 0.8 x10 3/uL) [...] % (Auto) (14.0 - 32.0 %) 16.1 [place] % (Auto) (4.8 - 9.0 %) 9.2 H Eos % (Auto) (0.3 - 3.7 %) 4.7 H Baso % (Auto) (0.0 - 2.0 %) 0.4 Neut # (Auto) (2.0 - 7.6 x10 3/uL) 6.38 Lymph # (Auto) (1.0 - 3.8 x10 3/uL) 1.49 [place] # (Auto) (0.1 - 0.8 x10 3/uL) [...] (Auto) (14.0 - 32.0 %) 13.7 L [place] % (Auto) (4.8 - 9.0 %) 7.2 Eos % (Auto) (0.3 - 3.7 %) 4.8 H Baso % (Auto) (0.0 - 2.0 %) 0.3 Neut # (Auto) (2.0 - 7.6 x10 3/uL) 6.64 Lymph # (Auto) (1.0 - 3.8 x10 3/uL) 1.24 [place] # (Auto) (0.1 - 0.8 x10 3/uL) [...] (0.0 - 0.1 x10 3/uL) 0.00 Medication(s) Ordered: Anti-Infective Agents Sig/Jan Start time [...] sets. -Repeat blood cultures 08/21/2022 are already positive for MRSA in 2 out of 2 sets, suggesting persistent high-grade bacteremia. -TTE 08/18/2022 negative for any obvious vegetations. -08/28 neg -JIMENA 09/02 neg *Prostatic abscess -s/p transrectal aspiration and unroofing on 08/26 -cx MRSA, citrobacter (r-cefazolin) Enterococcus raffinosus (S-amp,pcn, vancomycin), bacteriodes *ERIKA *Hyponatremia *Diabetic neuropathy *Diabetes mellitus type 2 *Hypertension *anemia 09/08 -cont on Cefepime and vancomycin til 5/3 for treatment of Prostate abscess -follow esr and crp -EGD today 09/09 -on cefepime and vancomycin til 5/3 for treatment of prostate abscess Consultants: cardiology, endocrinology, hospitalist, infectious disease, podiatry Portions of this section were scribed by Jill Quintero on 09/09/22 at 1145 at 2050 [facility] #:[id number] END OF REPORT [facility] 2022-09-09 11:38:00 [facility] ([facility]) Gastroenterology Progress Note REPORT#:[id number] REPORT STATUS: Signed DATE:09/09/22 TIME: 1138 PATIENT: KARMA ROWLAND UNIT #: [id number] ROOM/BED: [place] [address] : 63 AGE: 56 SEX: M ATTEND: Mj Vences MD ADM AUTHOR: Kassie Avitia MD * ALL edits or amendments must be made on the electronic/computer document * Subjective HPI: Patient is a 56-year-old male with history of diabetes mellitus type 2 and hypertension who was initially admitted for altered mental status and right- sided foot infection. [...] bleeding. Anemia likely secondary to chronic kidney disease. Can consider video capsule endoscopy as outpt Will follow Consultants: cardiology, endocrinology, hospitalist, infectious disease, podiatry at 1140 RPT #:[id number] END OF REPORT [facility] 2022-09-09 10:43:00 [facility] ([facility]) Pharmacy Prog.Note-Vancomycin REPORT#:[id number] REPORT STATUS: Signed DATE:09/09/22 TIME: 1043 PATIENT: KARMA ROWLAND UNIT #: [id number] ROOM/BED: [place] [address] : 63 AGE: 56 SEX: M ATTEND: Mj Vences MD ADM AUTHOR: Joselyn Stock [facility] * ALL edits or amendments must be made on the electronic/computer document * Vancomycin Vancomycin Medication Therapy Goal: Random 15-20 mcg/mL Indication for treatment: OM and MRSA Bacteremia VS and I/O: Vital Signs Date Temp Pulse Resp B/P B/P Mean Pulse Ox FiO2 09/06-09/09 97.3-98.8 80-98 10-20 131-177/64-90 0.0-118.8 94-99 72 hours ending at 0700 09/09 0709/08 19009/07 0700 1900 Intake 250.00 2000 Total Output 887 131 4174 1000 Total Balance -850 250.00 1400 -1500 -1000 Intake, IV 250.00 Intake, 2000 Oral Number 1 2 Bowel Movements Number 0 0 0 0 Incontinen t Voids Number 0 0 0 0 Voids Output, 635 335 8303 1000 Urine 72 Hour I O Total 09/09 0700 09/08 0700 09/07 0700 Intake Total 250.00 2000 Output Total 341 869 6738 Balance -600.00 1400 -2500 Labs: Laboratory Tests: [...] to cefepime/ vancomycin. Pharmacy consulted to dose vancomycin. Consulting provider: Merry Wolff Indication: Osteomyelitis of the Talus, Calcaneus, and Navicular Bone; MRSA Bacteremia; Prostatic Abscess Goal Random: 15-20 mcg/mL Concomitant Abx: Cefepime Duration of Therapy: 09/24/22 Assessment: Labs/Vitals * Afebrile/24hrs, WBC 9.2, BUN/SCr 10/0.9, UOP/24hrs 2 voids Micro * MRSA nares (09/03) positive * WCx (08/26) Citrobacter Farmeri (R Ampicillin, Cefazolin), Enterococcus Raffinosus (R Tetracycline), MRSA Imaging * CT Abd/Pelvis (08/18) possible abscess * RLE MRI (08/21) osteomyelitis of the talus, calcaneus, navicular bone Level * Peak (09/03) 27.7 mcg/mL; Trough (09/04) 12.8 mcg/mL; Calculated AUC 462 mcg* hr/mL, therefore tehrapeutic on Vancomycin 1gm IV q24h * Trough (04/15) * Random (09/07 @0510) 14.7 mcg/mL; s/p Vanc 1gm IV x1 09/05 @2009; Calculated half-life = 35.8hrs * Random (09/08 @1045) 15.8 mcg/mL; s/p Vanc 750mg IV x1 09/07 @1102 * Given patient's renal function has been elevated, yet stable, Vancomycin 500mg IV q24h was initiated * Random (09/09 @1403) 15.4 mcg/mL; s/p Vanc 500mg IV x1 09/08 @1403 Plan: * Considering risk for accumulation, will dose by level for at least one more day; Give Vancomycin 500mg IV x1 * Draw random level 09/10 @1500; possibly transition to AUC-based dosing tomorrow based on level at 1526 RPT #:[id number] END OF REPORT [facility] 2022-09-09 10:42:00 [facility] Rehab Progress Note REPORT#:[id number] REPORT STATUS: Signed DATE:09/09/22 TIME: 1042 PATIENT: KARMA ROWLAND UNIT #: [id number] ROOM/BED: [place] [address] : 63 AGE: 56 SEX: M ATTEND: Mj Vences MD ADM AUTHOR: Mj Vences MD * ALL edits or amendments must be made on the electronic/computer document * Subjective Chief complaint: Rehabilitation follow-up Patient doing well today Working with therapy Doing better + BM Eating 75-100% Denies DICKENS/N/V/D/CP 14 systems reviewed and neg. except that [...] is wearing a nestor-tech orthotic for right knee/BKA protection. Prior to [...] 2GM/SWFI 50ML) 50 ML ONCE ONE IV ( DC) Hydromorphone HCl (DILAUDID) 0.5 MG Q6H PRN PRN IV Vancomycin HCl (VANCOMYCIN HCL) 500 MG Q24H IV (DC) Sodium Chloride (SODIUM CHLORIDE 0.9% 100 ML) 100 ML Carvedilol (COREG) 3.125 MG C BK [...] Exam General appearance: alert, awake, no acute distress Psych: alert, normal affect, oriented x 3 HEENT: anicteric, sclera clear Neck: supple, no JVD Cardiovascular: S1/S2, no murmur Respiratory: aerating well, clear bilaterally Abdomen: bowel sounds present, non-distended, soft, non-tender Skin: no rash, R BKA HEALING. L ankle/foot wrapped with kerlix Musculoskeletal - general: Musculoskeletal - general: swelling (LLE, calve NT, homans neg), BUE 5/5, LLE 4/5, R hip 3- Neuro/QUANTITATIVE ANALYST: alert, oriented X 3, CNII-XII intact Results [...] % (Auto) (14.0 - 32.0 %) 16.1 [place] % (Auto) (4.8 - 9.0 %) 9.2 H Eos % (Auto) (0.3 - 3.7 %) 4.7 H Baso % (Auto) (0.0 - 2.0 %) 0.4 Neut # (Auto) (2.0 - 7.6 x10 3/uL) 6.38 Lymph # (Auto) (1.0 - 3.8 x10 3/uL) 1.49 [place] # (Auto) (0.1 - 0.8 x10 3/uL) [...] balance, gait, and endurance Free Text A P: Assessment: 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 Leroy Significant impairment in self-care, ADLs and functional mobility Impaired mobility and gait Acute postoperative pain right BKA Diabetic polyneuropathy DKA, DM 2, poorly controlled, A1c greater than 14 PAD MRSA bacteremia/sepsis-treated on acute ERIKA Severe hyponatremia-resolved HTN Acute on chronic anemia requiring multiple transfusions, possible GI bleed Left calf hematoma Edema and clinical arthritis left ankle Early decubitus to left heel/DTI dorsal left midfoot Prostatic abscess 08/26: S/p transrectal ultrasound aspiration of abscess and transurethral resection of prostate and unroofing of abscess Echo: EF 55-59%, grade 1 diastolic dysfunction 09/02: JMIENA negative for vegetation MRSA OF [place] 09/08:s/p EGD and colonoscopy. EGD showed mild gastritis. Colonoscopy showed rectal polyp that was resected by snare. Plan: -PLOF: Independent with transfers and gait -Amputee rehab program -Continue PT and OT -15/12 rehabilitation nursing care. -Case management for safe discharge planning. -Decubitus prevention -Early decubitus to left heel/DTI dorsal left midfoot-zinc oxide to the foot, foam, offloading, podiatry managing -DVT prophylaxis-subcutaneous heparin -Strict fall and safety precautions -Work on bed mobility, transfer training, ADLs, pre-gait and gait exercises -Increase endurance and strength -Monitor pain with therapies -OOB to chair -Monitor p.o. intake and nutrition, albumin 1.3, prealbumin less than 5, dietary consultation, protein supplements to promote healing -Continue antibiotics per ID-on cefepime and vancomycin until 10/11 for treatment of prostatic abscess -Tight glycemia control- endocrine on board, insulin adjustments -Endocrinology, ID, podiatry, cardiology, IM consulted -Pain management adjusting pain medications -Anemia, patient required multiple units of PRBCs on acute, FOBT positive -IV Protonix-consult GI-serial H H-no evidence of gross bleeding-discussed with Dr. Trinidad -Constipation-abdominal ctojsbsz-OGX-zwxzbm-CW Senokot and MiraLAX, DSP -Right PUK-jbeibqs-hnizcqlf resolved, dressings changed zwavp-azmnnnt-frsculls NESTOR-TECH -MRSA OF [place] on Bactroban protocol -LLE edema-venous Doppler with complex heterogeneous hypoechoic fluid collection in the left calf region measuring 8.4, 2.8, 2.5 cm suggestive of hematoma. Hold Lasix x3 days. Joan wrap calf -Generalized edema-some shortness of breath and abdominal distention-cardiology gave a dose of IV Lasix-monitor urine output, daily weights -Chest x-ray with minimal basilar pulmonary opacities -Anemia-hemoglobin 8.5, transfused 2 units of PRBC on 09/05 -09/08: s/p EGD and colonoscopy. EGD showed mild gastritis. Colonoscopy showed rectal polyp that was resected by snare. Anemia likely secondary to chronic kidney disease. Consult renal. -Chemistries good, creatinine 1.5, magnesium 1.89 -Advance therapies as tolerated-discussed treatment plan with [...] BY DEC ACTIVITY TOLERANCE AND WEAKNESS PM R Please see team note. Plan and goals discussed with the patient. I agree with the teams finding FAYOS- [09/19] DC-Home with -Home health DME-bedside commode, sliding board, wheelchair, Total time 33 minutes greater than 50% of the time spent examining patient, discussing with patient about team conference, anemia, EGD and colonoscopy, hold anticoagulants for a few days, amputee rehab plan of care, goals, therapies, progress, labs, medications. EMR and MAR is reviewed. All questions answered Orders: Procedure Date/time Status OT EXERCISE 15MIN 09/09 UNK Complete Consultants: cardiology, endocrinology, hospitalist, infectious disease, podiatry Rehab attestation: Face to face exam completed. Treatment plan discussed with patient. Meets continued stay criteria. Agree with interdisciplinary treatment plan. at 1526 RPT #:[id number] END OF REPORT [facility] 2022-09-09 09:56:00 [facility] ([facility]) Cardiology Progress Note REPORT#:[id number] REPORT STATUS: Signed DATE:09/09/22 TIME: 955 PATIENT: KARMA ROWLAND UNIT #: [id number] ROOM/BED: [place] [address] : 61 AGE: 56 SEX: M ATTEND: Mj Vences MD ADM AUTHOR: Rohit Benitez LOG ROPER * ALL edits or amendments must be made on the electronic/computer document * Rohit Benitez 09/09/22 0956: Subjective Chief complaint: weakness Free Text Subj Notes Free Text Subj Notes: Patient seen and evaluated. Chart reviewed. No new [...] 2GM/SWFI 50ML) 50 ML ONCE ONE IV ( DC) Hydromorphone HCl (DILAUDID) 0.5 MG Q6H PRN PRN IV Vancomycin HCl (VANCOMYCIN HCL) 500 MG Q24H IV Sodium Chloride (SODIUM CHLORIDE 0.9% 100 ML) 100 ML Propofol (DIPRIVAN 200MG/20ML INJECTION) 20 ML .STK-MED [...] regular rate and rhythm, no ectopy, no gallop Respiratory: clear to auscultation, no distress Abdomen: soft, non-tender Lower extremity: LE assessment: edema, normal temperature Neuro/QUANTITATIVE ANALYST: alert, oriented X 3 Considered stroke alert: no Wound/incision: Location: right bka Psychiatry: normal affect, normal judgment/insight, normal mood Results Findings/Data: Laboratory Tests 09/09 [...] % (Auto) (14.0 - 32.0 %) 16.1 [place] % (Auto) (4.8 - 9.0 %) 9.2 H Eos % (Auto) (0.3 - 3.7 %) 4.7 H Baso % (Auto) (0.0 - 2.0 %) 0.4 Neut # (Auto) (2.0 - 7.6 x10 3/uL) 6.38 Lymph # (Auto) (1.0 - 3.8 x10 3/uL) 1.49 [place] # (Auto) (0.1 - 0.8 x10 3/uL) [...] 1.89 Diagnosis, Assessment Plan Consultants: cardiology, endocrinology, hospitalist, infectious disease, podiatry Free [...] rehab for physical therapy. Known cardiac history of hypertension and hyperlipidemia. Vital signs stable. Echocardiogram with [...] BMP in the morning. Supportive care. Plan of care discussed with [...] RN and Dr. Parham. Napoleon Parham 09/09/22 2223: Diagnosis, Assessment Plan Additional comments: Patient was seen and examined at bedside, agree with above assessment and plan as documented by nurse practitioner with modifications. Patient continued to have left lower extremity edema and bilateral pulmonary rales. Continue with diuresis. Monitor I's and O's. We will follow. at 1704 at 2224 RPT #:[id number] END OF REPORT [facility] 2022-09-09 09:38:00 [facility] ([facility]) Hospitalist Progress Note REPORT#:[id number] REPORT STATUS: Signed DATE:09/09/22 TIME: 09 PATIENT: KARMA ROWLAND UNIT #: [id number] ROOM/BED: [place] [address] : 61 AGE: 56 SEX: M ATTEND: Mj Vences MD ADM AUTHOR: Wilbert Ramires MD * ALL edits or amendments must be made on the electronic/computer document * Subjective Chief complaint: admitted to [...] 2GM/SWFI 50ML) 50 ML ONCE ONE IV ( DC) Hydromorphone HCl (DILAUDID) 0.5 MG Q6H PRN PRN IV Vancomycin HCl (VANCOMYCIN HCL) 500 MG Q24H IV Sodium Chloride (SODIUM CHLORIDE 0.9% 100 ML) 100 ML Propofol (DIPRIVAN 200MG/20ML INJECTION) 20 ML .STK-MED [...] rate rhythm Respiratory: aerating well, clear to auscultation Abdomen: non-tender, normal bowel sounds Genitourinary: no flank pain Extremities: moves all, normal capillary refill Musculoskeletal: normal inspection, painless range of motion Neuro/QUANTITATIVE ANALYST: alert, oriented X 3, normal speech Considered stroke alert: no Skin: dry, intact Psychiatry: normal affect, normal judgment/insight Results Findings/Data: Laboratory Tests 09/09 09/09 09/08 [...] % (Auto) (14.0 - 32.0 %) 16.1 [place] % (Auto) (4.8 - 9.0 %) 9.2 H Eos % (Auto) (0.3 - 3.7 %) 4.7 H Baso % (Auto) (0.0 - 2.0 %) 0.4 Neut # (Auto) (2.0 - 7.6 x10 3/uL) 6.38 Lymph # (Auto) (1.0 - 3.8 x10 3/uL) 1.49 [place] # (Auto) (0.1 - 0.8 x10 3/uL) [...] 15.8 Diagnosis, Assessment Plan Consultants: cardiology, endocrinology, hospitalist, infectious disease, podiatry Free Text DxA P Notes Free text DxA P notes: Gangrene of right foot s/p Below- knee amputation Prostate abscess MRSA bacteremia Hx of Diabetes, Diabetic neuropathy HTN PLANS: Continue with ABx as dierected- currently on Daptomycin and Cefepime Continue with PT/OT per primary Fall precautions Nutritional support pain control fall precautions bowel regimen Wound care as directed Hepain PPX Continue with supportive / care follow hgb closely and transfuse as needed blood sugars dipping down - endo following BP improving. continue current BP meds and adjust as needed labs noted. watch Hgb IV iron at 1130 RPT #:[id number] END OF REPORT [facility] 2022-09-09 05:32:00 [facility] ([facility]) Pain Management Progress Note REPORT#:[id number] REPORT STATUS: Signed DATE:09/09/22 TIME: 0532 PATIENT: KARMA ROWLAND UNIT #: [id number] ROOM/BED: [place] [address] : 61 AGE: 56 SEX: M ATTEND: Mj Vences MD ADM AUTHOR: Charlie Quiroga LOG ROPER * ALL edits or amendments must be made on the electronic/computer document * Charlie Quiroga 09/09/22 0532: Subjective [...] fever/chills, chest pain, orthopnea, nausea/vomiting, pruritus, or hallucinations. 14 point ROS undertaken unremarkable except as noted Objective General VS/I O: Vital Signs Date [...] 2GM/SWFI 50ML) 50 ML ONCE ONE IV ( DC) Hydromorphone HCl (DILAUDID) 0.5 MG Q6H PRN PRN IV Vancomycin HCl (VANCOMYCIN HCL) 500 MG Q24H IV Sodium Chloride (SODIUM CHLORIDE 0.9% 100 ML) 100 ML Propofol (DIPRIVAN 200MG/20ML INJECTION) 20 ML .STK-MED [...] Exam General appearance: alert, awake, oriented, no acute distress Head/eyes: atraumatic, EOMI, normocephalic, normal conjunctiva/sclera, PERRLA ENT: normal ear left, normal ear right, normal nose, normal pharynx, moist mucosal membranes Neck: full range of motion, no lymphadenopathy, supple/no meningismus Cardiovascular: regular rate rhythm Respiratory: clear to auscultation, no distress, aerating well Abdomen: soft, non-tender, no distention, active bowel sounds in all quarants. Abdomen quadrants LLQ normal bowel sounds, LUQ normal bowel sounds, RLQ normal bowel sounds, RUQ normal bowel sounds Extremities: moves all, no edema, pedal pulses Neuro/QUANTITATIVE ANALYST: 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, no sensory deficits, CNII-XII grossly intact Considered stroke alert: no [...] (Auto) (14.0 - 32.0 %) 13.7 L [place] % (Auto) (4.8 - 9.0 %) 7.2 Eos % (Auto) (0.3 - 3.7 %) 4.8 H Baso % (Auto) (0.0 - 2.0 %) 0.3 Neut # (Auto) (2.0 - 7.6 x10 3/uL) 6.64 Lymph # (Auto) (1.0 - 3.8 x10 3/uL) 1.24 [place] # (Auto) (0.1 - 0.8 x10 3/uL) [...] x10 3/uL) 0.00 Diagnosis, Assessment Plan Free text A P: A/P: Patient is a 56 year old male who presents with: Recent prostate abscess -Status post TURP with unroofing of abscess -IV antibiotics with vancomycin until 09-24-2022 Acute postoperative pain, right foot and ankle gangrene, requiring BKA -Patient is at risk for further amputations or loss of limb due to comorbid conditions -Status post right BKA 08/28/2022 -Tylenol 650 mg p.o. every 6 hours as needed pain scale 1 3 -[place] 10/325 1 tablet p.o. every 4 hours as needed pain scale 4 10 -Dilaudid 0.5 mg IV every 6 hours as needed pain scale 7 10, second line therapy -patient will require close monitoring while using IV narcotics for any deleterious effect -Lidoderm patch to left ankle daily -IV antibiotics with vancomycin until 09-24-2022 -Local wound care -manageable Diabetic peripheral neuropathy -patient is based on adrenal insufficiency -amitriptyline 25mg PO QHS -manageable Uncontrolled diabetes, diabetes with complications, recent DKA -Hemoglobin A1c 13.4 -Recent right foot and ankle gangrene -Insulin sliding scale, FSBS, good glycemic control Hypertension -We will monitor hypertension and tachycardia due to [...] foot foot and ankle gangrene, diabetes, hypertension, hyperlipidemia Past Surgical History: TURP, right BKA Family History: Noncontributory Social History: Denies tobacco, alcohol, or drug use Allergies: NKDA Patient has failed conservative medical therapy. Patient will require monitoring while utilize narcotic medications [...] whom agrees. Thank you for the consultation. [place] ORCHESTRA LEADER: -database searched, no information found Kingsley Ng 09/28/221927: Attestations Physician Attestation Agree w/findings plan: The patient was seen and examined by Charlie Quiroga. I personally developed the care plan, which was continued by the mid-level provider. I was immediately available. at 1617 at 3616 RPT #:[id number] END OF REPORT [facility] 2022-09-08 20:33:00 [facility] Podiatry Progress Note REPORT#:[id number] REPORT STATUS: Signed DATE:09/08/22 TIME: 2032 PATIENT: KARMA ROWLAND UNIT #: [id number] ROOM[facility]BED: [facility] : 63 AGE: 56 SEX: M ATTEND: Mj Vences MD ADM AUTHOR: Liam Jeffrey DPM * ALL edits or amendments must be made on the electronic/computer document * Subjective Chief complaint: left heel ulcer. left ankle pain Patient reports: no confusion, no diarrhea, no headache, no itching, no nausea Comments: keeps joan wraps on even when sleeping. i advised [...] 2GM/SWFI 50ML) 50 ML ONCE ONE IV ( DC) Hydromorphone HCl (DILAUDID) 0.5 MG Q6H PRN PRN IV Vancomycin HCl (VANCOMYCIN HCL) 500 MG Q24H IV Sodium Chloride (SODIUM CHLORIDE 0.9% 100 ML) 100 ML Propofol (DIPRIVAN 200MG/20ML INJECTION) 20 ML .STK-MED [...] imported from the dietitian's assessment. BMI Calculated: 26.7 Nutrition related diagnosis: Nutrition diagnosis details: Nutrition problem: Altered nutrition labs Nutrition etiology: DM Nutrition signs and symptoms: HYPER/HYPOGLYCEMIA, A1C >14 Nutrition prescription: CONTINUE DM DIET Dietitian name: Klaus Kaiser, DIET Assessment completed: 09/03/22 Physical Exam General appearance: alert, awake, oriented, pleasant, conversational, mental status normal Wound/incision: Location: left foot Site condition: dp/pt 2/4 left. light touch decreased left foot. ulcer starting at posterior left heel. eccymosis noted. early likely stage 1. left ankle has edema. pain with aggressive ROM left ankle. LE vascular pulse assess: 2+ L posterior tibialis, 2+ L dorsalis pedis Considered stroke alert: no Ulcer: Location: DTI dorsal left midfoot Results Findings/Data: Laboratory Tests: 09/08 09/08 09/08 09/08 09/08 [...] (Auto) (14.0 - 32.0 %) 13.7 L [place] % (Auto) (4.8 - 9.0 %) 7.2 Eos % (Auto) (0.3 - 3.7 %) 4.8 H Baso % (Auto) (0.0 - 2.0 %) 0.3 Neut # (Auto) (2.0 - 7.6 x10 3/uL) 6.64 Lymph # (Auto) (1.0 - 3.8 x10 3/uL) 1.24 [place] # (Auto) (0.1 - 0.8 x10 3/uL) [...] (Man) (0.0 - 0.1 x10 3/uL) 0.00 09/070 Chemistry POC Glucose (70 - 110 MG/DL) 127 H Diagnosis, Assessment Plan Free Text A P: DM with neuropathy early decub ulcer left heel OA/edema left ankle DTI dorsal left midfoot zinc oxide to foot and heel foam to heel on IV abx offloading boot joan wraps to ankle, only when OOB with therapy. Consultants: cardiology, endocrinology, hospitalist, infectious disease, podiatry at 2030 RPT #:[id number] END OF REPORT [facility] 2022-09-08 17:06:00 [facility]) Nephrology Consultation Note REPORT#:[id number] REPORT STATUS: Signed DATE:09/08/22 TIME: 1705 PATIENT: KARMA ROWLAND UNIT #: [id number] ROOM/BED: [place] [address] : 61 AGE: 56 SEX: M ATTEND: Mj Vences MD ADM AUTHOR: Barrera Ramírez MD * ALL edits or amendments must be made on the electronic/computer document * History of Present Illness Requesting clinician: Lisandro Vences Reason for consult: Elevated creatinine/?Anemia due to decreased GFR Chief complaint: Infected foot HPI: Patient seen and evaluated on 09/09/2022, note started, [...] 13 years old or older: Never Smoker Other social history: Local resident, Good social support Allergies: Coded Allergies: No Known Allergies [...] ML Propofol (DIPRIVAN 200MG/20ML INJECTION) 20 ML .STK-MED [...] edema, non-tender Musculoskeletal: no CVA tenderness, no tenderness Neuro/QUANTITATIVE ANALYST: alert, normal speech Considered stroke alert: no [...] H 09/06 09/06 09/06 09/05 1051 0538 0514 1910 Chemistry Creatinine (0.6 - 1.3 mg/dL) [...] (Auto) (14.0 - 32.0 %) 13.7 L [place] % (Auto) (4.8 - 9.0 %) 7.2 Eos % (Auto) (0.3 - 3.7 %) 4.8 H Baso % (Auto) (0.0 - 2.0 %) 0.3 Neut # (Auto) (2.0 - 7.6 x10 3/uL) 6.64 Lymph # (Auto) (1.0 - 3.8 x10 3/uL) 1.24 [place] # (Auto) (0.1 - 0.8 x10 3/uL) [...] (Auto) (14.0 - 32.0 %) 13.7 L [place] % (Auto) (4.8 - 9.0 %) 7.2 Eos % (Auto) (0.3 - 3.7 %) 4.8 H Baso % (Auto) (0.0 - 2.0 %) 0.3 Neut # (Auto) (2.0 - 7.6 x10 3/uL) 6.64 Lymph # (Auto) (1.0 - 3.8 x10 3/uL) 1.24 [place] # (Auto) (0.1 - 0.8 x10 3/uL) [...] 15.8 Diagnosis, Assessment Plan Consultants: cardiology, endocrinology, hospitalist, infectious disease, podiatry Free Text DxA P Notes Free text DxA P notes: Patient seen and evaluated, discussed with care team, images and laboratories reviewed. Diabetes mellitus: Insulin: Monitor blood sugar closely and adjust medications as needed, followed by endocrinology. Hypertension: Blood pressure is not well controlled, increase Coreg to 12.5 mg p.o. twice daily: Monitor blood pressure closely and adjust medications as needed Right foot gangrene/infection status post right BKA Anemia: Status post EGD and colonoscopy which were negative for active GI bleeding, patient had work-up in July 2022 which showed very high B12, normal folate, very low iron saturation but very high ferritin which was likely related to his infection, likely patient is very iron deficient, will repeat lab and give IV iron if needed. We will check serum immunofixation. Acute kidney injury: We will check renal bladder ultrasound, check postvoid residual, check urine protein creatinine ratio Hypomagnesemia: We will supplement at 0939 RPT #:[id number] END OF REPORT [facility] 2022-09-08 16:52:00 [facility] ([facility]) Endocrinology Progress Note REPORT#:[id number] REPORT STATUS: Signed DATE:09/08/22 TIME: 165 PATIENT: KARMA ROWLAND UNIT #: [id number] ROOM/BED: [place] [address] : 61 AGE: 56 SEX: M ATTEND: Mj Vences MD ADM AUTHOR: Braxton Chapin MD * ALL edits or amendments must be made on the electronic/computer document * Subjective Patient reports: no complaints [...] ML Propofol (DIPRIVAN 200MG/20ML INJECTION) 20 ML .STK-MED [...] (Auto) (14.0 - 32.0 %) 13.7 L [place] % (Auto) (4.8 - 9.0 %) 7.2 Eos % (Auto) (0.3 - 3.7 %) 4.8 H Baso % (Auto) (0.0 - 2.0 %) 0.3 Neut # (Auto) (2.0 - 7.6 x10 3/uL) 6.64 Lymph # (Auto) (1.0 - 3.8 x10 3/uL) 1.24 [place] # (Auto) (0.1 - 0.8 x10 3/uL) [...] abdomen. Impression By: [email or web address] - Roger Parra M.D. ULTRASOUND - DUP VEIN UNI/LTD 09/05 1146 Report Impression - Status: SIGNED Entered: 09/05/2022 1333 IMPRESSION: 1. No evidence of deep vein thrombosis. 2. Complex heterogeneous hypoechoic fluid collection in the left calf region measuring 8.4 x 2.8 x 2.5 cm; there is no internal vascularity or peripheral hyperemia. May represent a hematoma. Impression By: TipABJames - Mert Ga M.D. RADIOLOGY - XR CHEST 1 V 09/05 1432 Report Impression - Status: SIGNED Entered: 09/05/2022 1515 IMPRESSION: Minimal bibasilar pulmonary opacities Impression By: Yared Mares M.D. Laboratory Tests: 09/04 [...] COLB STOOL 1.Diabetes mellitus type 2 uncontrolled complications. 2. 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 4. Sepsis 5. Prostate abscess. 6. Anemia Blood sugar 99-100 mg/dL.H/H 8.6/26.1 Adjust insulin dose. PT and OT. at 1653 RPT #:[id number] END OF REPORT [facility] 2022-09-08 13:04:00 [facility] Gastroenterology Progress Note REPORT#:[id number] REPORT STATUS: Signed DATE:09/08/22 TIME: 1304 PATIENT: KARMA ROWLAND UNIT #: [id number] ROOM/BED: [place] [address] : 61 AGE: 56 SEX: M ATTEND: Mj Vences MD ADM AUTHOR: Kassie Avitia MD * ALL edits or amendments must be made on the electronic/computer document * Subjective HPI: Patient is a 56-year-old male with history of diabetes mellitus type 2 and hypertension who was initially admitted for altered mental status and right- sided foot infection. [...] total of 3 units pRBCs during this hospitalization -Monitor H/H -Monitor for GIB -Transfuse if HGB <7.0 Consultants: cardiology, endocrinology, hospitalist, infectious disease, podiatry at 1306 [facility] #:[id number] END OF REPORT [facility] 2022-09-08 12:48:00 [id number] [place] [address] PATIENT NAME: KARMA ROWLAND ADMIT DATE: 09/02/22 ACCOUNT NO: [id number] ROOM NO: [facility] AGE: 56 REPORT TYPE: ENDOSCOPY REPORT SEX: M ADMITTING PHYSICIAN:Mj Vences MD ATTENDING PHYSICIAN:Mj Vences MD Gastroenterology Patient Name: Karma Rowland Procedure Date: 09/08/2022 12:48 PM Date of : 1965 Procedure: [...] procedure by the physician, the nurse, the school admissions representative and the senior quality control technician. The procedure was verified in the procedure room. - Pre-procedure physical examination revealed no contraindications to sedation. - ASA Grade Assessment: III - A patient with severe systemic disease. - After reviewing the risks and benefits, the patient was deemed in satisfactory condition to undergo the procedure. - Monitored anesthesia care under the supervision of a SALES DEPARTMENT MANAGER was determined to be medically necessary for [...] Impression: - The entire examined colon is normal. - One 6 mm polyp in the rectum, removed with a cold snare. Resected and retrieved. - Internal hemorrhoids. Recommendation: - Return patient to [facility] for ongoing care. - Resume previous diet. - Continue present medications. - Await pathology results. - Repeat colonoscopy in 5 years for surveillance. Procedure Code(s): --- Professional --- 12601, Colonoscopy, flexible; with removal of tumor(s), polyp(s), or other lesion(s) by snare technique Diagnosis Code(s): --- Professional --- K64.8, Other hemorrhoids K62.1, Rectal polyp D50.0, Iron deficiency anemia secondary to blood loss (chronic) CPT copyright 2020 [employer]. All rights reserved. The codes documented in this report are preliminary and upon vat cleaner review may be revised to meet current compliance requirements. Kassie Avitia MD 09/08/2022 1:04:26 PM Number of Addenda: 0 Note Initiated On: 09/08/2022 12:48 PM Provation {[id number] }.pdf ProVation FT PDF PATIENT NAME: KARMA ROWLAND at 1304 PATIENT NAME: KARMA ROWLAND [facility] 2022-09-08 12:23:00 [facility] ([facility]) Infectious Dis. Progress Note REPORT#:[id number] REPORT STATUS: Signed DATE:09/08/22 TIME: 1223 PATIENT: KARMA ROWLAND UNIT #: [id number] ROOM/BED: [place] [address] : 61 AGE: 56 SEX: M ATTEND: Mj Vences MD ADM AUTHOR: Merry Wolff MD * ALL edits or amendments must be made on the electronic/computer document * Subjective HPI: PT is a [...] reports: Yes: pain controlled. No: cough, diarrhea, fever, headache, [...] 1999 97.3 87 17 175/88 116.8 97 24 [...] awake, oriented Head/Eyes: atraumatic, clear cornea, EOMI, normal conjunctiva/sclera, normal eyelids/periorb, normocephalic, PERRL ENT: moist mucosal membranes, normal dentition Neck: full range of motion Cardiovascular: normal heart sounds, regular rate rhythm Respiratory: clear to auscultation, aerating well Abdomen: non-tender, normal bowel sounds, soft Extremities: moves all, right BKA Left foot wound +dressing in place Neuro/QUANTITATIVE ANALYST: alert, oriented X 3 Considered stroke alert: [...] (Auto) (14.0 - 32.0 %) 13.7 L [place] % (Auto) (4.8 - 9.0 %) 7.2 Eos % (Auto) (0.3 - 3.7 %) 4.8 H Baso % (Auto) (0.0 - 2.0 %) 0.3 Neut # (Auto) (2.0 - 7.6 x10 3/uL) 6.64 Lymph # (Auto) (1.0 - 3.8 x10 3/uL) 1.24 [place] # (Auto) (0.1 - 0.8 x10 3/uL) [...] (Auto) (14.0 - 32.0 %) 13.7 L [place] % (Auto) (4.8 - 9.0 %) 7.2 Eos % (Auto) (0.3 - 3.7 %) 4.8 H Baso % (Auto) (0.0 - 2.0 %) 0.3 Neut # (Auto) (2.0 - 7.6 x10 3/uL) 6.64 Lymph # (Auto) (1.0 - 3.8 x10 3/uL) 1.24 [place] # (Auto) (0.1 - 0.8 x10 3/uL) [...] 09/06 SUBQ 10/02 2159 0531 Cardiovascular Drugs Sig/Jna Start time Last Medication Dose Route Stop [...] 1921 Pantoprazole Sodium 40 MG Q12HR 09/05 09 AC 09/08 IV 10/05 0859 0747 Polyethylene [...] Lidocaine 1 PATCH DAILY 09/03 09 AC 09/07 TOPICAL 10/03 0859 0852 Skin [...] bibasilar pulmonary opacities Impression By: Yared - Bishop Mares M.D. Portions of this section were scribed by Jill Quintero on 09/08/22 at 1623 Diagnosis, Assessment Plan Free Text A P: *MRSA bacteremia -Initial blood cultures from 08/18/2022 positive for MRSA in 2 out of 2 sets. -Repeat blood cultures 08/21/2022 are already positive for MRSA in 2 out of 2 sets, suggesting persistent high-grade bacteremia. -TTE 08/18/2022 negative for any obvious vegetations. -08/28 neg -JIMENA 09/02 neg *Prostatic abscess -s/p transrectal aspiration and unroofing on 08/26 -cx MRSA, citrobacter (r-cefazolin) Enterococcus raffinosus (S-amp,pcn, vancomycin), bacteriodes *ERIKA *Hyponatremia *Diabetic neuropathy *Diabetes mellitus type 2 *Hypertension *anemia 09/08 -cont on Cefepime and vancomycin til 09/24 for treatment of Prostate abscess -follow esr and crp -EGD today Consultants: cardiology, endocrinology, hospitalist, infectious disease, podiatry Portions of this section were scribed by Jill Quintero on 09/08/22 at 1223 at 1135 RPT #:[id number] END OF REPORT [facility] 2022-09-08 12:08:00 [facility] ([facility]) Cardiology Progress Note REPORT#:[id number] REPORT STATUS: Signed DATE:09/08/22 TIME: 1208 PATIENT: KARMA ROWLAND UNIT #: [id number] ROOM/BED: [facility] : 61 AGE: 56 SEX: M ATTEND: Mj Vences MD ADM AUTHOR: Rohit Benitez LOG ROPER * ALL edits or amendments must be made on the electronic/computer document * Rohit Benitez 09/08/22 1208: Subjective [...] regular rate and rhythm, no ectopy, no gallop Respiratory: clear to auscultation, no distress Abdomen: soft, non-tender Lower extremity: LE assessment: edema, normal temperature Neuro/QUANTITATIVE ANALYST: alert, oriented X 3 Considered stroke alert: no Wound/incision: Location: right bka Psychiatry: normal affect, normal judgment/insight, normal mood Results Findings/Data: Laboratory Tests 09/08 [...] (Auto) (14.0 - 32.0 %) 13.7 L [place] % (Auto) (4.8 - 9.0 %) 7.2 Eos % (Auto) (0.3 - 3.7 %) 4.8 H Baso % (Auto) (0.0 - 2.0 %) 0.3 Neut # (Auto) (2.0 - 7.6 x10 3/uL) 6.64 Lymph # (Auto) (1.0 - 3.8 x10 3/uL) 1.24 [place] # (Auto) (0.1 - 0.8 x10 3/uL) [...] L Diagnosis, Assessment Plan Consultants: cardiology, endocrinology, hospitalist, infectious disease, podiatry Free [...] rehab for physical therapy. Known cardiac history of hypertension and hyperlipidemia. Vital signs stable. Echocardiogram with [...] BMP in the morning. Supportive care. Plan of care discussed with [...] RN and Dr. Parham. Napoleon Parham 09/09/22 2223: Diagnosis, Assessment Plan Additional comments: Agree with above assessment and plan as documented by nurse practitioner, continue current management, will follow. 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 Patient's blood cultures have come back [...] with merrem/ daptomycin. ID adjusting regimen to cefepime/vancomycin. Pharmacy consulted to dose vancomycin. Consulting provider: Dr. Wolff Indication: OM and MRSA Bacteremia Goal: AUC 400-600 mcg*hr/ml A/P 09/08: * Pt transferred [facility] to [facility] rehab 09/01 * Tmax: 98.8 F, WBC 9.1 WNL * Renal: Cr: 1.4 (unchaged x past 3 days), estCrCl 52mL/min, urine output: 600 mL/24 hrs documented * Micro: 08/26 prostate abscess: C farmeri, MRSA, E raffinosus. 08/18, 08/19, 08/21 , [...] vanc dose to goal at 1217 RPT #:[id number] END OF REPORT [facility] 2022-09-08 10:47:00 [id number] [place] [address] PATIENT NAME: KARMA ROWLAND ADMIT DATE: 09/02/22 ACCOUNT NO: [id number] ROOM NO: G.537 AGE: 56 REPORT TYPE: ENDOSCOPY REPORT SEX: M ADMITTING PHYSICIAN:Mj Vences MD ATTENDING PHYSICIAN:Mj Vences MD Gastroenterology Patient Name: Karma Rowland Procedure Date: 09/08/2022 10:47 AM Date of : 1965 Procedure: [...] procedure by the physician, the nurse, the school admissions representative and the senior quality control technician. The procedure was verified in the procedure room. - Pre-procedure physical examination revealed no contraindications to sedation. - ASA Grade Assessment: III - A patient with severe systemic disease. - After reviewing the risks and benefits, the patient was deemed in satisfactory condition to undergo the procedure. - Monitored anesthesia care under the supervision of a SALES DEPARTMENT MANAGER was determined to be medically necessary for [...] specimens collected. Recommendation: - Return patient to [facility] for ongoing care. - Resume previous diet. - Continue present medications. Procedure Code(s): --- Professional --- 20921, Esophagogastroduodenoscopy, flexible, transoral; diagnostic, including collection of specimen(s) by brushing or washing, when performed (separate procedure) Diagnosis Code(s): --- Professional --- K31.89, Other diseases of stomach and duodenum D50.0, Iron deficiency anemia secondary to blood loss (chronic) CPT copyright 2020 [employer]. All rights reserved. The codes documented in this report are preliminary and upon vat cleaner review may be revised to meet current compliance requirements. Kassie Avitia MD 09/08/2022 1:02:49 PM Number of Addenda: 0 Note Initiated On: 09/08/2022 10:47 AM Provation {[id number] }.pdf ProVation FT PDF at 1303 PATIENT NAME: KARMA ROWLAND [facility] 2022-09-08 10:07:00 [id number] [address] PATIENT NAME: KARMA ROWLAND ADMIT DATE: 09/02/22 ACCOUNT NO: [id number] ROOM NO: G.537 AGE: 56 REPORT TYPE: eELECTROCARDIOGRAM REPORT SEX: M ADMITTING PHYSICIAN:Mj Vences MD ATTENDING PHYSICIAN:Mj Vences MD Order: [id number] Test Reason : PREOP EVAL Test Date/Time [...] 01:43, Significant changes have occurred Confirmed by NAPOLEON PARHAM MD ([id number]) on 09/11/2022 5:46:20 PM Referred By: Mj Vences Confirmed by:JITENDRA PARHAM MD at 1746 PATIENT NAME: KARMA ROWLAND [facility] 2022-09-08 09:57:00 [facility] Rehab Progress Note REPORT#:[id number] REPORT STATUS: Signed DATE:09/08/22 TIME: 956 PATIENT: KARMA ROWLAND UNIT #: [id number] ROOM[facility]BED: [facility] : 61 AGE: 56 SEX: M ATTEND: Mj Vences MD ADM AUTHOR: Mj Vences MD * ALL edits or amendments must be made on the electronic/computer document * Subjective Chief complaint: Rehabilitation follow-up To go down for endoscopy Doing better + BM Eating Denies DICKENS/N/V/D/CP 14 systems reviewed and neg. except that [...] is wearing a [employer]or-tech orthotic for right knee/BKA protection. Prior to [...] Exam General appearance: alert, awake, no acute distress Psych: alert, normal affect, oriented x 3 HEENT: anicteric, sclera clear Neck: supple, no JVD Cardiovascular: S1/S2, no murmur Respiratory: aerating well, clear bilaterally Abdomen: bowel sounds present, non-distended, soft, non-tender Skin: no rash, R BKA wrapped healing. L ankle/foot wrapped with kerlix Musculoskeletal - general: Musculoskeletal - general: swelling (LLE, calve NT, homans neg), BUE 5/5, LLE 4/5, R hip 3- Neuro/QUANTITATIVE ANALYST: alert, oriented X 3, CNII-XII intact Results [...] (Auto) (14.0 - 32.0 %) 13.7 L [place] % (Auto) (4.8 - 9.0 %) 7.2 Eos % (Auto) (0.3 - 3.7 %) 4.8 H Baso % (Auto) (0.0 - 2.0 %) 0.3 Neut # (Auto) (2.0 - 7.6 x10 3/uL) 6.64 Lymph # (Auto) (1.0 - 3.8 x10 3/uL) 1.24 [place] # (Auto) (0.1 - 0.8 x10 3/uL) [...] abdomen. Impression By: [id number] - Roger Parra M.D. ULTRASOUND - [facility] UNI/LTD 09/05 1146 Report Impression - Status: SIGNED Entered: 09/05/2022 1333 IMPRESSION: 1. No evidence of deep vein thrombosis. 2. Complex heterogeneous hypoechoic fluid collection in the left calf region measuring 8.4 x 2.8 x 2.5 cm; there is no internal vascularity or peripheral hyperemia. May represent a hematoma. Impression By: [email or web address] - Mert Ga M.D. RADIOLOGY - XR CHEST 1 V 09/05 1432 Report Impression - Status: SIGNED Entered: 09/05/2022 1515 IMPRESSION: Minimal bibasilar pulmonary opacities Impression By: TipTDO Cr Mares M.D. Diagnosis, Assessment Plan Problem List/A P: 1. Gangrene of right foot 2. Below-knee amputation of right lower extremity 3. MRSA bacteremia 4. Cellulitis of foot, right 5. DKA (diabetic ketoacidosis) 6. Hyperglycemia 7. ERIKA (acute kidney injury) 8. Postoperative pain 9. Acute anemia 10. Prostate abscess 11. 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 Leroy Significant impairment in self-care, ADLs and functional mobility Impaired mobility and gait Acute postoperative pain right BKA Diabetic polyneuropathy DKA, DM 2, poorly controlled, A1c greater than 14 PAD MRSA bacteremia/sepsis-treated on acute ERIKA Severe hyponatremia-resolved HTN Acute on chronic anemia requiring multiple transfusions, possible GI bleed Left calf hematoma Edema and clinical arthritis left ankle Early decubitus to left heel/DTI dorsal left midfoot Prostatic abscess 08/26: S/p transrectal ultrasound aspiration of abscess and transurethral resection of prostate and unroofing of abscess Echo: EF 55-59%, grade 1 diastolic dysfunction 09/02: JIMENA negative for vegetation MRSA OF NARES 09/08:s/p EGD and colonoscopy. EGD showed mild gastritis. Colonoscopy showed rectal polyp that was resected by snare. Plan: -PLOF: Independent with transfers and gait -Amputee rehab program -Continue PT and OT -15/12 rehabilitation nursing care. -Case management for safe discharge planning. -Decubitus prevention -Early decubitus to left heel/DTI dorsal left midfoot-zinc oxide to the foot, foam, offloading, podiatry managing -DVT prophylaxis-subcutaneous heparin -Strict fall and safety precautions -Work on bed mobility, transfer training, ADLs, pre-gait and gait exercises -Increase endurance and strength -Monitor pain with therapies -OOB to chair -Monitor p.o. intake and nutrition, albumin 1.3, prealbumin less than 5, dietary consultation, protein supplements to promote healing -Continue antibiotics per ID -Tight glycemia control- endocrine on board, insulin adjustments -Endocrinology, ID, podiatry, cardiology, IM consulted -Pain management adjusting pain medications -Anemia, patient required multiple units of PRBCs on acute, FOBT positive -IV Protonix-consult GI-serial H H-no evidence of gross bleeding-discussed with Dr. Trinidad -Constipation-abdominal mvfevmqr-TZX-gkqwai-CW Senokot and MiraLAX, DSP -Right WSI-wfzqqak-lpsuqinx resolved, dressings changed jgwsx-rtpwcsr-uhajxxes NESTOR-TECH -MRSA OF NARES on Bactroban protocol -LLE edema-venous Doppler with complex heterogeneous hypoechoic fluid collection in the left calf region measuring 8.4, 2.8, 2.5 cm suggestive of hematoma. Hold Lasix x3 days. Joan wrap calf -Generalized edema-some shortness of breath and abdominal distention-cardiology gave a dose of IV Lasix-monitor urine output, daily weights -Chest x-ray with minimal basilar pulmonary opacities -Anemia-hemoglobin 8.5, transfused 2 units of PRBC on 09/05 -09/08: s/p EGD and colonoscopy. EGD showed mild gastritis. Colonoscopy showed rectal polyp that was resected by snare. Anemia likely secondary to chronic kidney disease. Consult renal. -Chemistries good, creatinine 1.4, magnesium 1.58 -Advance therapies as tolerated-discussed treatment plan with patient and -Patient continues to perform well with therapies. Patient is highly motivated but requires rest breaks due to becoming easily fatigued. Patient working on sliding board and stand pivot transfers -Team conference Progress: Pt. PERFORMED SCOOTPIVOT TRANSFER TO WITH SBA FOR SAFETY. Pt. INSTRUCTED ON WC PUSH UPS FOR STRENGTHENING, 3x5, UEs. Pt. INSTRUCTED ON SIT TO STAND AT // WITH MOD A TO MAX A. Pt. LEFT IN WC AT END OF Tx. AND EDUCATED ON IMPORTANCE OF STAYING OUT OF BED WHEN POSSIBLE. Pt. LEFT WITH ALL NEEDS IN REACH. Pt. PERFORMED SUPINE TO SIT IN BED WITH IND, SLIDE BOARD TRANSFER TO WITH SBA. Pt. PROPELLED FOR 200 FT 3 TIMES FOR ENDURANCE TRAINING, WITH SBA. PM R Please see team note. Plan and goals discussed with the patient. I agree with the teams finding ELOS- [] DC- DME- Total time 33 minutes greater than 50% of the time spent examining patient, left calf hematoma, anemia, EGD and colonoscopy, hold anticoagulants for a few days, amputee rehab plan of care, goals, therapies, progress, labs, medications. EMR and MAR is reviewed. All questions answered Orders: Procedure Date/time Status PHYSICIAN CONSULT 09/08 1540 Active PREALBUMIN 09/08 0615 Complete CREATINE KINASE (CK) 09/08 0615 Complete ALBUMIN 09/08 0615 Complete OT ADL 09/08 UNK Complete Consultants: cardiology, endocrinology, hospitalist, infectious disease, podiatry Rehab attestation: Face to face exam completed. Treatment plan discussed with patient. Meets continued stay criteria. Agree with interdisciplinary treatment plan. at 1541 RPT #:[id number] END OF REPORT [facility] 2022-09-08 06:36:00 [facility] ([facility]) Hospitalist Progress Note REPORT#:[id number] REPORT STATUS: Signed DATE:09/08/22 TIME: 0636 PATIENT: KARMA ROWLAND UNIT #: [id number] ROOM/BED: [place] [address] : 63 AGE: 56 SEX: M ATTEND: Mj Vences MD ADM AUTHOR: Wilbert Ramires MD * ALL edits or amendments must be made on the electronic/computer document * Subjective Chief complaint: admitted to [...] DC'd Last 24 Hrs Polyethylene Glycol/Electrolytes (GOLYTELY) 2,000 ML ONCE ONE [...] rate rhythm Respiratory: aerating well, clear to auscultation Abdomen: non-tender, normal bowel sounds Genitourinary: no flank pain Extremities: moves all, normal capillary refill Musculoskeletal: normal inspection, painless range of motion Neuro/QUANTITATIVE ANALYST: alert, oriented X 3, normal speech Considered stroke alert: no Skin: dry, intact Psychiatry: normal affect, normal judgment/insight Results Findings/Data: Laboratory Tests 09/08 09/07 09/07 09/07 09/07 0616 2238 2110 1554 1137 Chemistry POC Glucose (70 - 110 MG/DL) 101 135 H 127 H 112 H 51 L 09/07 1127 Chemistry POC Glucose (70 - 110 MG/DL) 42 L Diagnosis, Assessment Plan Consultants: cardiology, endocrinology, hospitalist, infectious disease, podiatry Free Text DxA P Notes Free text DxA P notes: Gangrene of right foot s/p Below- knee amputation Prostate abscess MRSA bacteremia Hx of Diabetes, Diabetic neuropathy HTN PLANS: Continue with ABx as dierected- currently on Daptomycin and Cefepime Continue with PT/OT per primary Fall precautions Nutritional support pain control fall precautions bowel regimen Wound care as directed Hepain PPX Continue with supportive / care follow hgb closely and transfuse as needed blood sugars dipping down - endo following BP trending up, add BP meds and follow at 0559 [facility] #:[id number] END OF REPORT [facility] 2022-09-08 06:22:00 [facility] ([facility]) Pain Management Progress Note REPORT#:[id number] REPORT STATUS: Signed DATE:09/08/22 TIME: 621 PATIENT: KARMA ROWLAND UNIT #: [id number] ROOM/BED: [place] [address] : 63 AGE: 56 SEX: M ATTEND: Mj Vences MD ADM AUTHOR: Charlie Qiuroga LOG ROPER * ALL edits or amendments must be made on the electronic/computer document * Charlie Quiroga 09/08/22 0622: Subjective Chief complaint: Patient seen and examined. [...] fever/chills, chest pain, orthopnea, nausea/vomiting, pruritus, or hallucinations. 14 point ROS undertaken unremarkable except as noted Objective General VS/I O: Vital Signs Date [...] DC'd Last 24 Hrs Polyethylene Glycol/Electrolytes (GOLYTELY) 2,000 ML ONCE ONE [...] Exam General appearance: alert, awake, oriented, no respiratory distress Head/eyes: atraumatic, EOMI, normocephalic, normal conjunctiva/sclera, PERRLA ENT: normal ear left, normal ear right, normal nose, normal pharynx, moist mucosal membranes Neck: full range of motion, no lymphadenopathy, supple/no meningismus Cardiovascular: regular rate rhythm Respiratory: clear to auscultation, no distress, aerating well Abdomen: soft, non-tender, no distention, active bowel sounds in all quarants. Abdomen quadrants LLQ normal bowel sounds, LUQ normal bowel sounds, RLQ normal bowel sounds, RUQ normal bowel sounds Extremities: moves all, no edema, pedal pulses Neuro/QUANTITATIVE ANALYST: 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, no sensory deficits, CNII-XII grossly intact Considered stroke alert: no [...] pain, right foot and ankle gangrene, requiring BKA -Patient is at risk for further amputations or loss of limb due to comorbid conditions -Status post right BKA 08/28/2022 -Tylenol 650 mg p.o. every 6 hours as needed pain scale 1 3 -[place] 10/325 1 tablet p.o. every 4 hours as needed pain scale 4 10 -reduce Dilaudid 0.5 mg IV every 6 hours as needed pain scale 7 10, second line therapy-patient will require close monitoring while using IV narcotics for any deleterious effect -Lidoderm patch to left ankle daily -IV antibiotics with vancomycin until 09-24-2022 -Local wound care -manageable Diabetic peripheral neuropathy -patient is based on adrenal insufficiency -amitriptyline 25mg PO QHS -manageable Uncontrolled diabetes, diabetes with complications, recent DKA -Hemoglobin A1c 13.4 -Recent right foot and ankle gangrene -Insulin sliding scale, FSBS, good glycemic control Hypertension -We will monitor hypertension and tachycardia due to [...] foot foot and ankle gangrene, diabetes, hypertension, hyperlipidemia Past Surgical History: TURP, right BKA Family History: Noncontributory Social History: Denies tobacco, alcohol, or drug use Allergies: NKDA Patient has failed conservative medical therapy. Patient will require monitoring while utilize narcotic medications [...] whom agrees. Thank you for the consultation. [place] ORCHESTRA LEADER: -database searched, no information found Kingsley Ng 09/26/22 1257: Attestations Physician Attestation Agree w/findings plan: The patient was seen and examined by Charlie Quiroga. I personally developed the care plan, which was continued by the mid-level provider. I was immediately available. at 1440 at 1259 RPT #:[id number] END OF REPORT [facility] 2022-09-07 19:10:00 [facility] ([facility]) Pain Management Progress Note REPORT#:[id number] REPORT STATUS: Signed DATE:09/07/22 TIME: 1909 PATIENT: KARMA ROWLAND UNIT #: [id number] ROOM/BED: [place] [address] : 63 AGE: 56 SEX: M ATTEND: Mj Vences MD ADM AUTHOR: Ben Klein * ALL edits or amendments must be made on the electronic/computer document * Ben Klein 09/07/221909: Subjective Chief [...] fever/chills, chest pain, orthopnea, nausea/vomiting, pruritus, or hallucinations. 14 point ROS undertaken unremarkable except as noted Objective General VS/I O: Vital Signs Date [...] DC'd Last 24 Hrs Polyethylene Glycol/Electrolytes (GOLYTELY) 2,000 ML ONCE ONE [...] Exam General appearance: alert, awake, oriented, no acute distress Head/eyes: atraumatic, EOMI, normocephalic, normal conjunctiva/sclera, PERRLA ENT: normal ear left, normal ear right, normal nose, normal pharynx, moist mucosal membranes Neck: full range of motion, no lymphadenopathy, supple/no meningismus Cardiovascular: regular rate rhythm Respiratory: clear to auscultation, no distress, aerating well Abdomen: soft, non-tender, no distention, active bowel sounds in all quarants. Abdomen quadrants LLQ normal bowel sounds, LUQ normal bowel sounds, RLQ normal bowel sounds, RUQ normal bowel sounds Extremities: moves all, no edema, pedal pulses Neuro/QUANTITATIVE ANALYST: 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, no sensory deficits, CNII-XII grossly intact Considered stroke alert: no [...] foot foot and ankle gangrene, diabetes, hypertension, hyperlipidemia Past Surgical History: TURP, right BKA Family History: Noncontributory Social History: Denies tobacco, alcohol, or drug use Allergies: NKDA Recent prostate abscess -Status post TURP with unroofing of abscess -IV antibiotics with vancomycin until 09-24-2022 Acute postoperative pain, right foot and ankle gangrene, requiring BKA -Patient is at risk for further amputations or loss of limb due to comorbid conditions -Status post right BKA 08/28/2022 -Tylenol 650 mg p.o. every 6 hours as needed pain scale 1 3 -[place] 10/325 1 tablet p.o. every 4 hours as needed pain scale 4 10 -Dilaudid 1 mg IV every 6 hours as needed pain scale 7 10, second line therapy- patient will require close monitoring while using IV narcotics for any deleterious effect -Lidoderm patch to left ankle daily -IV antibiotics with vancomycin until 09-24-2022 -Local wound care -manageable Diabetic peripheral neuropathy -patient is based on adrenal insufficiency -amitriptyline 25mg PO QHS -manageable Uncontrolled diabetes, diabetes with complications, recent DKA -Hemoglobin A1c 13.4 -Recent right foot and ankle gangrene -Insulin sliding scale, FSBS, good glycemic control Hypertension -We will monitor hypertension and tachycardia due to [...] therapy. Patient will require monitoring while utilize narcotic medications [...] whom agrees. Thank you for the consultation. [place] ORCHESTRA LEADER: -database searched, no information found Kingsley Ng 09/24/22 1631: Attestations Physician Attestation Agree w/findings plan: The patient was seen and examined by Ben Klein. I personally developed the care plan, which was continued by the mid-level provider. I was immediately available. at 1911 at 1637 RPT #:[id number] END OF REPORT [facility] 2022-09-07 16:24:00 [facility] Endocrinology Progress Note REPORT#:[id number] REPORT STATUS: Signed DATE:09/07/22 TIME: 1624 PATIENT: KARMA ROWLAND UNIT #: [id number] ROOM/BED: [place] [address] : 63 AGE: 56 SEX: M ATTEND: Mj Vences MD ADM AUTHOR: Braxton Chapin MD * ALL edits or amendments must be made on the electronic/computer document * Subjective Patient reports: no complaints Objective General VS: Last Documented: Result Date Time Pulse Ox 98 09/07 155 B/P 177/90 09/07 155 B/P Mean 118.8 09/07 1556 Temp 36.4 09/07 155 Pulse 93 09/07 1556 Resp 15 09/07 155 O2 Delivery Room air 09/06 1545 PATIENT WEIGHT: Weight (lb): 165 Weight (oz): 5.55 Weight (kg): 75.000 Medications: Active Meds + DC'd Last 24 Hrs Polyethylene Glycol/Electrolytes (GOLYTELY) 2,000 ML ONCE ONE [...] abdomen. Impression By: [email or web address] - Roger Parra M.D. ULTRASOUND - DUP VEIN UNI/LTD 09/05 1146 Report Impression - Status: SIGNED Entered: 09/05/2022 1333 IMPRESSION: 1. No evidence of deep vein thrombosis. 2. Complex heterogeneous hypoechoic fluid collection in the left calf region measuring 8.4 x 2.8 x 2.5 cm; there is no internal vascularity or peripheral hyperemia. May represent a hematoma. Impression By: [email or web address] - Mert Ga M.D. RADIOLOGY - XR CHEST 1 V 09/05 1432 Report Impression - Status: SIGNED Entered: 09/05/2022 1515 IMPRESSION: Minimal bibasilar pulmonary opacities Impression By: TipTDO - Bishop Mares M.D. Laboratory [...] COLB STOOL 1.Diabetes mellitus type 2 uncontrolled complications. 2. 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 4. Sepsis 5. Prostate abscess. 6. Anemia Blood sugar 135-51 mg/dL.H/H 8.6/26.1 Adjust insulin dose. PT and OT. at 1625 RPT #:[id number] END OF REPORT [facility] 2022-09-07 13:01:00 [facility] Hospitalist Progress Note REPORT#:[id number] REPORT STATUS: Signed DATE:09/07/22 TIME: 1301 PATIENT: KARMA ROWLAND UNIT #: [id number] ROOM/BED: [place] [address] : 63 AGE: 56 SEX: M ATTEND: Mj Vences MD ADM AUTHOR: Musa Enriquez MD * ALL edits or amendments must be made on the electronic/computer document * Subjective Chief complaint: admitted to [...] 24 hour I O ending at 0700: 0416 0700 0415 1900 Intake Total Output Total 1500 1000 Balance -1500 -1000 Number 0 0 Incontinent Voids Number Voids 0 0 Output, Urine 1500 1000 PATIENT WEIGHT: Weight (lb): 165 Weight (oz): 5.55 Weight (kg): 75.000 Medications: Active Meds + DC'd Last 24 Hrs Polyethylene Glycol/Electrolytes (GOLYTELY) 2,000 ML ONCE ONE [...] rate rhythm Respiratory: aerating well, clear to auscultation Abdomen: non-tender, normal bowel sounds Genitourinary: no flank pain Extremities: moves all, normal capillary refill Musculoskeletal: normal inspection, painless range of motion Neuro/QUANTITATIVE ANALYST: alert, oriented X 3, normal speech Considered stroke alert: no Skin: dry, intact Psychiatry: normal affect, normal judgment/insight Results Findings/Data: Laboratory Tests 09/07 09/07 09/07 [...] Gangrene of right foot s/p Below- knee amputation Prostate abscess MRSA bacteremia Hx of Diabetes, Diabetic neuropathy PLANS: Continue with ABx as dierected- currently on Daptomycin and Cefepime Continue with PT/OT per primary Fall precautions Nutritional support pain control Tight glycemia control- endocrine on board, insulin adjustments Wound care as directed Hepain PPX Continue with supportive / care follow hgb closely and transfuse as needed 09/07/22 sugars low - will monitor HB stable planned for endoscope Doing well continue with pt ot at 1505 RPT #:[id number] END OF REPORT [facility] 2022-09-07 10:08:00 [facility] ([facility]) Gastroenterology Progress Note REPORT#:[id number] REPORT STATUS: Signed DATE:09/07/22 TIME: 1008 PATIENT: KARMA ROWLAND UNIT #: [id number] ROOM/BED: [place] [address] : 63 AGE: 56 SEX: M ATTEND: Mj Vences MD ADM AUTHOR: Kassie Avitia MD * ALL edits or amendments must be made on the electronic/computer document * Subjective HPI: Patient is a 56-year-old male with history of diabetes mellitus type 2 and hypertension who was initially admitted for altered mental status and right- sided foot infection. [...] Planning for colonoscopy and endoscopy tomorrow Objective General [...] tonight. Prep ordered 2. Acute on chronic anemia-no overt GIB with current Hgb 7.1. He has received a total of 3 units pRBCs during this hospitalization -Monitor H/H -Monitor for GIB -Transfuse if HGB <7.0 Consultants: cardiology, endocrinology, hospitalist, infectious disease, podiatry at 1009 RPT #:[id number] END OF REPORT [facility] 2022-09-07 10:08:00 [facility]) Pharmacy Prog.Note-Vancomycin REPORT#:[id number] REPORT STATUS: Signed DATE:09/07/22 TIME: 1008 PATIENT: KARMA ROWLAND UNIT #: [id number] ROOM/BED: [place] [address] : 63 AGE: 56 SEX: M ATTEND: Mj Vences MD ADM AUTHOR: Willie Rivera [facility] * ALL edits or amendments must be made on the electronic/computer document * Vancomycin Vancomycin Medication Therapy Goal: AUC 400-600 mg*hr/L Indication for treatment: OM and MRSA Bacteremia Site of infection: known Day of therapy: 7 Weight: Actual weight (kg): 75 VS and I/O: Vital Signs Date Temp Pulse Resp B/P B/P Mean Pulse Ox FiO2 09/04-09/07 97.3-99.1 84-101 13-19 139-167/67-83 0.0-109.8 95-100 72 hours ending at 0700 09/07 0700 1900 Intake 1420.00 1220 250 Total [...] 72 Hour I O Total 09/07 0709/06 0709/05 0700 Intake Total 2640.00 250 Output [...] admin history: Lab 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 Patient's [...] with merrem/ daptomycin. ID adjusting regimen to cefepime/vancomycin. Pharmacy consulted to dose vancomycin. Consulting provider: Dr. Wolff Indication: MRSA Bacteremia Goal: AUC 400-600 mcg*hr/ml A/P 09/07: * Pt transferred [facility] to [facility] 09/01 * tmax: 97.9, WBC 8.4 (09/07) * Renal: Cr: 1.4 (increased from 1.1 on 09/03), clcr: 56 ml/min, urine output: 2500 mL/24 hrs documented * Micro: 08/26 prostate abscess: C farmeri, MRSA, E raffinosus. 08/18, 08/19, 08/21 , [...] level in 24 hours to continue pulse dosing. * at 1011 RPT #:[id number] END OF REPORT [facility] 2022-09-07 06:25:00 [facility] ([facility]) Rehab Progress Note REPORT#:[id number] REPORT STATUS: Signed DATE:09/07/22 TIME: 624 PATIENT: KARMA ROWLAND UNIT #: [id number] ROOM/BED: [place] [address] : 63 AGE: 56 SEX: M ATTEND: Mj Vences MD ADM AUTHOR: Guero Candelaria * ALL edits or amendments must be made on the electronic/computer document * Guero Candelaria 09/07/22624: Subjective Chief complaint: Rehabilitation follow-up Doing better + BM Eating Denies DICKENS/N/V/D/CP 14 systems reviewed and neg. except that [...] is wearing a nestor-tech orthotic for right knee/BKA protection. Prior to [...] Functional progress: PT daily note comment: s. PATIENT AGREED TO [...] SIT TO STANDS IN PARALLEL BARS WITH MAX A, WITH CUES TO PUSH OF WC, SHIFT COM WITHIN BASE OF SUPPORT. STOOD 3 X 10 SEC. PATIENT WORKED ON TRANSFERS BACK TO BED WITH MIN A FOR SETUP AND SCOOTING ASSIST. EDUCATED ON OFF LOADING LLE WITH BOOT TO ALLOW PRESSURE [...] clear bilaterally Abdomen: bowel sounds present, non-distended, soft, non-tender Skin: no rash, R BKA wrapped healing. L ankle/foot wrapped with kerlix Musculoskeletal - general: Musculoskeletal - general: swelling (LLE, calve NT, homans neg), BUE 5/5, LLE 4/5, R hip 3- Neuro/QUANTITATIVE ANALYST: alert, oriented X 3, CNII-XII intact Results [...] balance, gait, and endurance Free Text A P: Assessment: 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 S/p surgical debridement and washout /6: S/p right BKA-Dr. Leroy Significant impairment in self-care, ADLs and functional mobility Impaired mobility and gait Acute postoperative pain right BKA Diabetic polyneuropathy DKA, DM 2, poorly controlled, A1c greater than 14 PAD MRSA bacteremia/sepsis-treated on acute ERIKA Severe hyponatremia-resolved HTN Acute on chronic anemia requiring multiple transfusions, possible GI bleed Left calf hematoma Edema and clinical arthritis left ankle Early decubitus to left heel/DTI dorsal left midfoot Prostatic abscess 08/26: S/p transrectal ultrasound aspiration [...] -Early decubitus to left heel/DTI dorsal left midfoot-zinc oxide to the foot, foam, offloading, podiatry managing -DVT prophylaxis-subcutaneous heparin -Strict fall and safety precautions -Work on bed mobility, transfer training, ADLs, pre-gait and gait exercises -Increase endurance and strength -Monitor pain with therapies -OOB to chair -Monitor p.o. intake and nutrition, albumin 1.3, prealbumin less than 5, dietary consultation, protein supplements to promote healing -Continue antibiotics per ID -Tight glycemia control- endocrine on board, insulin adjustments -Endocrinology, ID, podiatry, cardiology, IM consulted -Pain management adjusting pain medications -Labs reviewed -Anemia, patient required multiple units of PRBCs on acute, FOBT positive -IV Protonix-consult GI-serial H H-no evidence of gross bleeding-discussed with Dr. Trinidad -Constipation-abdominal gcwxhsuc-DMY-isiwly-CW Senokot and MiraLAX, DSP -Right ZIE-tahsfqx-yitkpeso resolved, dressings changed kilcg-fxqnanc-bwtjvvje NESTOR-TECH -MRSA OF NARES on Bactroban protocol -LLE edema-venous Doppler with complex heterogeneous hypoechoic fluid collection in the left calf region measuring 8.4, 2.8, 2.5 cm suggestive of hematoma. Hold Lasix x3 days. Joan wrap calf -Generalized edema-some shortness of breath and abdominal distention-cardiology gave a dose of IV Lasix-monitor urine output, daily weights -Chest x-ray with minimal basilar pulmonary opacities -Anemia-transfused 2 units of PRBC on 09/05 -Advance therapies as tolerated-discussed treatment plan with [...] Face to face exam completed. Treatment plan discussed with patient. Meets continued stay criteria. Agree with interdisciplinary treatment plan. Mj Vences 09/07/22 1044: Attestations Physician Attestation Agree w/findings plan: Patient seen and examined. Agree with the findings and plan as documented by DAVID Tran GI Planning for colonoscopy and endoscopy tomorrow at 1044 at 1716 RPT #:[id number] END OF REPORT [facility] 2022-09-06 17:38:00 [facility] ([facility]) Endocrinology Progress Note REPORT#:[id number] REPORT STATUS: Signed DATE:09/06/22 TIME: 1738 PATIENT: KARMA ROWLAND UNIT #: [id number] ROOM/BED: [place] [address] : 61 AGE: 56 SEX: M ATTEND: Mj Vences MD ADM AUTHOR: Braxton Chapin MD * ALL edits or amendments must be made on the electronic/computer document * Subjective Patient reports: no complaints Objective General VS: Last Documented: Result Date Time Pulse Ox 97 09/06 1545 B/P 157/77 09/06 1545 B/P Mean 103.5 09/06 1545 O2 Delivery Room air 09/06 154 Temp 36.9 09/06 154 Pulse 89 09/06 1545 Resp 18 09/06 [...] abdomen. Impression By: [email or web address] - Roger Parra M.D. ULTRASOUND - DUP VEIN UNI/LTD 09/05 1146 Report Impression - Status: SIGNED Entered: 09/05/2022 1333 IMPRESSION: 1. No evidence of deep vein thrombosis. 2. Complex heterogeneous hypoechoic fluid collection in the left calf region measuring 8.4 x 2.8 x 2.5 cm; there is no internal vascularity or peripheral hyperemia. May represent a hematoma. Impression By: TipABJames Ga M.D. RADIOLOGY - XR CHEST 1 V 09/05 1432 Report Impression - Status: SIGNED Entered: 09/05/2022 1515 IMPRESSION: Minimal bibasilar pulmonary opacities Impression By: Yared Mares M.D. Laboratory Tests: 09/04 [...] COLB STOOL 1.Diabetes mellitus type 2 uncontrolled complications. 2. 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 4. Sepsis 5. Prostate abscess. 6. Anemia Blood sugar 124-92 mg/dL.H/H 8.6/26.1 Adjust insulin dose. PT and OT. at 1739 RPT #:[id number] END OF REPORT [facility] 2022-09-06 14:33:00 [facility]) Gastroenterology Progress Note REPORT#:[id number] REPORT STATUS: Signed DATE:09/06/22 TIME: 1433 PATIENT: KARMA ROWLAND UNIT #: [id number] ROOM/BED: [place] [address] : 63 AGE: 56 SEX: M ATTEND: Mj Vences MD ADM AUTHOR: Kassie Avitia MD * ALL edits or amendments must be made on the electronic/computer document * Subjective HPI: Patient is a 56-year-old male with history of diabetes mellitus type 2 and hypertension who was initially admitted for altered mental status and right- sided foot infection. [...] Thursday. -Clear liquid diet on Thursday. N.p.o. after midnight on Thursday. Will order prep 2. Acute on chronic anemia-no overt GIB with current Hgb 7.1. He has received a total of 3 units pRBCs during this hospitalization -Monitor H/H -Monitor for GIB -Transfuse if HGB <7.0 Consultants: cardiology, endocrinology, hospitalist, infectious disease, podiatry at 1435 RPT #:[id number] END OF REPORT [facility] 2022-09-06 12:30:00 [facility] ([facility] Hospitalist Progress Note REPORT#:[id number] REPORT STATUS: Signed DATE:09/06/22 TIME: 1230 PATIENT: KARMA ROWLAND UNIT #: [id number] ROOM/BED: [place] [address] : 63 AGE: 56 SEX: M ATTEND: Mj Vences MD ADM AUTHOR: Musa Enriquez MD * ALL edits or amendments must be made on the electronic/computer document * Subjective Chief complaint: admitted to [...] 16 150/73 98.5 95 09/05 2142 36.8 04 1849 91 151/75 100.6 96 09/05 1813 [...] rate rhythm Respiratory: aerating well, clear to auscultation Abdomen: non-tender, normal bowel sounds Genitourinary: no flank pain Extremities: moves all, normal capillary refill Musculoskeletal: normal inspection, painless range of motion Neuro/QUANTITATIVE ANALYST: alert, oriented X 3, normal speech Considered stroke alert: no Skin: dry, intact Psychiatry: normal affect, normal judgment/insight Results Findings/Data: Laboratory Tests 09/06 09/06 09/06 [...] Gangrene of right foot s/p Below- knee amputation Prostate abscess MRSA bacteremia Hx of Diabetes, Diabetic neuropathy PLANS: Continue with ABx as dierected- currently on Daptomycin and Cefepime Continue with PT/OT per primary Fall precautions Nutritional support pain control Tight glycemia control- endocrine on board, insulin adjustments Wound care as directed Hepain PPX Continue with supportive / care follow hgb closely and transfuse as needed 09/06/22 Doing well continue with pt ot at 1624 RPT #:[id number] END OF REPORT [facility] 2022-09-06 09:10:00 [facility] ([facility]) Pharmacy Prog.Note-Vancomycin REPORT#:[id number] REPORT STATUS: Signed DATE:09/06/22 TIME: 909 PATIENT: KARMA ROWLAND UNIT #: [id number] ROOM/BED: [place] [address] : 63 AGE: 56 SEX: M ATTEND: Mj Vences MD ADM AUTHOR: Hyun Pichardo [facility] * ALL edits or amendments must be made on the electronic/computer document * See Addendum Vancomycin Vancomycin Medication [...] intramuscular compartments of the foot, compatible with gas- forming infection. Patient's [...] with merrem/ daptomycin. ID adjusting regimen to cefepime/vancomycin. Pharmacy consulted to dose vancomycin. Consulting provider: Dr. Wolff Indication: MRSA Bacteremia Goal: AUC 400-600 mcg*hr/ml A/P 09/06: * Pt transferred [facility] to [facility] rehab 09/01 * tmax: 37.3, WBC 8.7 (09/03) * Renal: Cr: 1.4 (increased from 1.1 on 09/03), clcr: 61 ml/min, urine output: 2050 mL/24 hrs documented * Micro: 08/26 prostate abscess: C farmeri, MRSA, E raffinosus. 08/18, 08/19, 08/21 , [...] seems ok) aiming for trough of 13 at 0927 Addendum 1: 09/06/22 1640 by Hyun Pichardo [facility] Vancomycin trough: 18.9 (supratherapeutic), Vancomycin held for today. Random ordered with AM labs tomorrow as unsure if renal function will continue to get worse or start to improve. Will dose based on level tomorrow am. at 1641 RPT #:[id number] END OF REPORT [facility] 2022-09-06 07:31:00 [facility] ([facility]) Pain Management Progress Note REPORT#:[id number] REPORT STATUS: Signed DATE:09/06/22 TIME: 730 PATIENT: KARMA ROWLAND UNIT #: [id number] ROOM/BED: [place] [address] : 63 AGE: 56 SEX: M ATTEND: Mj Vences MD ADM AUTHOR: Ben Klein * ALL edits or amendments must be made on the electronic/computer document * Ben Klein 09/06/22 0731: Subjective [...] fever/chills, chest pain, orthopnea, nausea/vomiting, pruritus, or hallucinations. 14 point ROS undertaken unremarkable except as noted Objective General VS/I O: Vital Signs Date [...] Exam General appearance: alert, awake, oriented, no acute distress Head/eyes: atraumatic, EOMI, normocephalic, normal conjunctiva/sclera, PERRLA ENT: normal ear left, normal nose, normal pharynx, moist mucosal membranes Neck: full range of motion, no lymphadenopathy, supple/no meningismus Cardiovascular: regular rate rhythm Respiratory: clear to auscultation, no distress, aerating well Abdomen: soft, non-tender, no distention, active bowel sounds in all quarants. Abdomen quadrants LLQ normal bowel sounds, LUQ normal bowel sounds, RLQ normal bowel sounds, RUQ normal bowel sounds Extremities: moves all, no edema, pedal pulses Neuro/QUANTITATIVE ANALYST: 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, no sensory deficits, CNII-XII grossly intact Considered stroke alert: no [...] or peripheral hyperemia. May represent a hematoma. Impression By: [email or web address] - Mert Ga M.D. RADIOLOGY - XR CHEST 1 V 09/05 1432 Report Impression - Status: SIGNED Entered: 09/05/2022 1515 IMPRESSION: Minimal bibasilar pulmonary opacities Impression By: Yared Mares M.D. Diagnosis, Assessment Plan Free text A P: A/P: Patient is a 56 year old male who presents with: Past Medical History: Prostate abscess, right foot foot and ankle gangrene, diabetes, hypertension, hyperlipidemia Past Surgical History: TURP, right BKA Family History: Noncontributory Social History: Denies tobacco, alcohol, or drug use Allergies: NKDA Recent prostate abscess -Status post TURP with unroofing of abscess -IV antibiotics with vancomycin until 09-24-2022 Acute postoperative pain, right foot and ankle gangrene, requiring BKA -Patient is at risk for further amputations or loss of limb due to comorbid conditions -Status post right BKA 08/28/2022 -Tylenol 650 mg p.o. every 6 hours as needed pain scale 1 3 -G[place]rock 10/325 1 tablet p.o. every 4 hours as needed pain scale 4 10 -Dilaudid 1 mg IV every 6 hours as needed pain scale 7 10, second line therapy- patient will require close monitoring while using IV narcotics for any deleterious effect -Lidoderm patch to left ankle daily -IV antibiotics with vancomycin until 09-24-2022 -Local wound care -manageable Diabetic peripheral neuropathy -patient is based on adrenal insufficiency -amitriptyline 25mg PO QHS -manageable Uncontrolled diabetes, diabetes with complications, recent DKA -Hemoglobin A1c 13.4 -Recent right foot and ankle gangrene -Insulin sliding scale, FSBS, good glycemic control Hypertension -We will monitor hypertension and tachycardia due to [...] therapy. Patient will require monitoring while utilize narcotic medications [...] whom agrees. Thank you for the consultation. [place] ORCHESTRA LEADER: -database searched, no information found Kingsley Ng 09/23/22 1734: Attestations Physician Attestation Agree w/findings plan: The patient was seen and examined by Ben Klein. I personally developed the care plan, which was continued by the mid-level provider. I was immediately available. at 1816 at 1737 RPT #:[id number] END OF REPORT [facility] 2022-09-06 06:24:00 [facility] ([facility]) Rehab Progress Note REPORT#:[id number] REPORT STATUS: Signed DATE:09/06/22 TIME: 623 PATIENT: KARMA ROWLADN UNIT #: [id number] ROOM/BED: [place] [address] : 63 AGE: 56 SEX: M ATTEND: Mj Vences MD ADM AUTHOR: Guero Candelaria * ALL edits or amendments must be made on the electronic/computer document * Guero Candelaria 09/06/22 0624: Subjective Chief complaint: Rehabilitation follow-up Doing better + BM Patient very motivated Eating Denies DICKENS/N/V/D/CP 14 systems reviewed and neg. except that [...] is wearing a [employer]or-[employer] orthotic for right knee/BKA protection. Prior to [...] 98.1 94 15 151/72 98.2 96 09/05 2244 99.1 93 15 154/74 100.5 95 09/059 98.4 93 15 144/68 93.7 99 09/054 98.4 92 15 149/70 96.1 95 09/050 98.8 94 15 158/75 102.7 97 09/057 98.4 96 16 150/73 98.5 95 09/05 [...] Functional progress: PT daily note comment: s. PATIENT AGREED TO [...] SIT TO STANDS IN PARALLEL BARS WITH MAX A, WITH CUES TO PUSH OF WC, SHIFT COM WITHIN BASE OF SUPPORT. STOOD 3 X 10 SEC. PATIENT WORKED ON TRANSFERS BACK TO BED WITH MIN A FOR SETUP AND SCOOTING ASSIST. EDUCATED ON OFF LOADING LLE WITH BOOT TO ALLOW PRESSURE [...] clear bilaterally Abdomen: bowel sounds present, non-distended, soft, non-tender Skin: no rash, R BKA wrapped healing. L ankle/foot wrapped with kerlix Musculoskeletal - general: Musculoskeletal - general: swelling (LLE, calve NT, homans neg), BUE 5/5, LLE 4/5, R hip 3- Neuro/QUANTITATIVE ANALYST: alert, oriented X 3, CNII-XII intact Results [...] abdomen. Impression By: [email or web address] - Roger Parra M.D. ULTRASOUND - DUP VEIN UNI/LTD 09/05 1146 Report Impression - Status: SIGNED Entered: 09/05/2022 1333 IMPRESSION: 1. No evidence of deep vein thrombosis. 2. Complex heterogeneous hypoechoic fluid collection in the left calf region measuring 8.4 x 2.8 x 2.5 cm; there is no internal vascularity or peripheral hyperemia. May represent a hematoma. Impression By: [email or web address] - Mert Ga M.D. RADIOLOGY - XR CHEST 1 V 09/05 1432 Report Impression - Status: SIGNED Entered: 09/05/2022 1515 IMPRESSION: Minimal bibasilar pulmonary opacities Impression By: TipTDO Cr Mares M.D. Diagnosis, Assessment Plan Problem List/A P: 1. Gangrene of right foot 2. Below-knee amputation of right lower extremity 3. MRSA bacteremia 4. Cellulitis of foot, right 5. DKA (diabetic ketoacidosis) 6. Hyperglycemia 7. ERIKA (acute kidney injury) 8. Postoperative pain 9. Acute anemia 10. Prostate abscess 11. 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 Leroy Significant impairment in self-care, ADLs and functional mobility Impaired mobility and gait Acute postoperative pain right BKA, left foot and ankle Diabetic polyneuropathy DKA, DM 2, poorly controlled, A1c greater than 14 PAD MRSA bacteremia/sepsis-treated on acute ERIKA Severe hyponatremia-resolved HTN Acute on chronic anemia requiring multiple transfusions, possible GI bleed Left calf hematoma Edema and clinical arthritis left ankle Early decubitus to left heel/DTI dorsal left midfoot Prostatic abscess /: S/p transrectal ultrasound aspiration of [...] -Early decubitus to left heel/DTI dorsal left midfoot-zinc oxide to the foot, foam, offloading, podiatry managing -DVT prophylaxis-subcutaneous heparin -Strict fall and safety precautions -Work on bed mobility, transfer training, ADLs, pre-gait and gait exercises -Increase endurance and strength -Monitor pain with therapies -OOB to chair -Monitor p.o. intake and nutrition, albumin 1.3, prealbumin less than 5, dietary consultation, protein supplements to promote healing -Continue antibiotics per ID -Tight glycemia control- endocrine on board, insulin adjustments -Endocrinology, ID, podiatry, cardiology, IM consulted -Pain management adjusting pain medications -Labs reviewed -Anemia, patient required multiple units of PRBCs on acute, FOBT positive -IV Protonix-consult GI-serial H H-no evidence of gross bleeding-discussed with Dr. Trinidad -Constipation-abdominal oqjcmljd-LDT-scmdyn-CW Senokot and MiraLAX, DSP -Right ZOM-qpyzjqd-ddjqnudi resolved, dressings changed iarok-uzogkde-mfqhemlp NESTOR-TECH -MRSA OF NARES on Bactroban protocol -LLE edema-venous Doppler with complex heterogeneous hypoechoic fluid collection in the left calf region measuring 8.4, 2.8, 2.5 cm suggestive of hematoma. Hold Lasix x3 days. Joan wrap calf -Generalized edema-some shortness of breath and abdominal distention-cardiology gave a dose of IV Lasix-monitor urine output, daily weights -Chest x-ray with minimal basilar pulmonary opacities -Anemia-transfused 2 units of PRBC on 09/05 -Advance therapies as tolerated-discussed treatment plan with patient and -Patient progressing but limited due to weakness requiring min assist with transfers with standby assist. Continue plan of care with emphasis on sliding board transfers. Total time 33 minutes greater than 50% of the time spent examining patient, discussing probable left calf hematoma per ultrasound, anemia, possible GI bleed , transfusion, edema, amputation rehab, rehab plan of care, goals, therapies, progress, labs, medications. EMR and MAR is reviewed. All questions answered Consultants: cardiology, endocrinology, hospitalist, infectious disease, podiatry Rehab attestation: Face to face exam completed. Treatment plan discussed with patient. Meets continued stay criteria. Agree with interdisciplinary treatment plan. Mj Vences 09/06/22 0857: Attestations Physician Attestation Agree w/findings plan: Patient seen and examined. Agree with the findings and plan as documented by DAVID Tran LLE edema- hematoma on US-hold heparin, joan wraps-monitor. ?GIB-appreciate GI input at 0858 at 2017 RPT #:[id number] END OF REPORT [facility] 2022-09-05 18:58:00 [facility] Podiatry Progress Note REPORT#:[id number] REPORT STATUS: Signed DATE:09/05/22 TIME: 1857 PATIENT: KARMA ROWLAND UNIT #: [id number] ROOM/BED: [place] [address] : 63 AGE: 56 SEX: M ATTEND: Mj Vences MD ADM AUTHOR: Liam Jeffrey DPM * ALL edits or amendments must be made on the electronic/computer document * Subjective Chief complaint: left heel ulcer. left ankle pain Patient reports: no chest pain, no cough, no [...] imported from the dietitian's assessment. BMI Calculated: 26.7 Nutrition related diagnosis: Nutrition diagnosis details: Nutrition problem: Altered nutrition labs Nutrition etiology: DM Nutrition signs and symptoms: HYPER/HYPOGLYCEMIA, A1C >14 Nutrition prescription: CONTINUE DM DIET Dietitian name: Klaus Kaiser, DIET Assessment completed: 09/03/22 Physical Exam General appearance: alert, awake, oriented Wound/incision: Location: left foot Site condition: dp/pt 2/4 left. light touch decreased left foot. ulcer starting at posterior left heel. eccymosis noted. early likely stage 1. left ankle has edema. pain with aggressive ROM left ankle. LE vascular pulse assess: 2+ L posterior [...] or peripheral hyperemia. May represent a hematoma. Impression By: [email or web address] - Mert Ga M.D. RADIOLOGY - XR CHEST 1 V 09/05 1432 Report Impression - Status: SIGNED Entered: 09/05/2022 1515 IMPRESSION: Minimal bibasilar pulmonary opacities Impression By: Yared Mares M.D. Diagnosis, Assessment Plan Free Text A P: DM with neuropathy early decub ulcer left heel OA/edema left ankle DTI dorsal left midfoot zinc oxide to foot and heel foam to heel on IV abx offloading boot joan wraps to ankle Consultants: cardiology, endocrinology, hospitalist, infectious disease, podiatry at 1859 RPT #:[id number] END OF REPORT [facility] 2022-09-05 15:15:00 [facility] ([facility]) Endocrinology Progress Note REPORT#:[id number] REPORT STATUS: Signed DATE:09/05/22 TIME: 151 PATIENT: KARMA ROWLAND UNIT #: [id number] ROOM/BED: [facility] : 63 AGE: 56 SEX: M ATTEND: Mj Vences MD ADM AUTHOR: Braxton Chapin MD * ALL edits or amendments must be made on the electronic/computer document * Subjective Patient reports: no complaints Objective General VS: Last Documented: Result Date Time Pulse Ox 96 09/05 144 B/P 156/75 09/05 1443 B/P Mean 102.0 09/05 144 O2 Delivery Room air 09/05 1442 Temp 36.9 09/05 144 Pulse 93 09/05 [...] Impressions: RADIOLOGY - XR ABDOMEN 1V (KUB) 04/13 1648 Report Impression - Status: SIGNED Entered: 09/04/2022 1757 IMPRESSION: Benign appearance of the abdomen. Impression By: [email or web address] - Roger Parra M.D. ULTRASOUND - DUP VEIN UNI/LTD 09/05 1146 Report Impression - Status: SIGNED Entered: 09/05/2022 1333 IMPRESSION: 1. No evidence of deep vein thrombosis. 2. Complex heterogeneous hypoechoic fluid collection in the left calf region measuring 8.4 x 2.8 x 2.5 cm; there is no internal vascularity or peripheral hyperemia. May represent a hematoma. Impression By: [email or web address] - Mert Ga M.D. RADIOLOGY - XR CHEST 1 V 09/05 1432 Report Impression - Status: SIGNED Entered: 09/05/2022 1515 IMPRESSION: Minimal bibasilar pulmonary opacities Impression By: TipTDO - Bishop Mares M.D. Laboratory [...] COLB STOOL 1.Diabetes mellitus type 2 uncontrolled complications. 2. 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 4. Sepsis 5. Prostate abscess. 6. Anemia Blood sugar 75-74 mg/dL. Adjust insulin dose. PT and OT. at 1516 RPT #:[id number] END OF REPORT [facility] 2022-09-05 15:04:00 [facility] ([facility]) Pain Management Progress Note REPORT#:[id number] REPORT STATUS: Signed DATE:09/05/22 TIME: 1504 PATIENT: KARMA ROWLAND UNIT #: [id number] ROOM/BED: [place] [address] : 61 AGE: 56 SEX: M ATTEND: Mj Vences MD ADM AUTHOR: Ben Klein * ALL edits or amendments must be made on the electronic/computer document * Ben Klein 09/05/22 1504: Subjective [...] fever/chills, chest pain, orthopnea, nausea/vomiting, pruritus, or hallucinations. 14 point ROS undertaken unremarkable except as noted Objective General VS/I O: Vital Signs Date Temp Pulse Resp B/P B/P Mean Pulse Ox FiO2 09/04-09/05 36.5-37.1 84-93 - 139-167/67-80 91.0-108.7 96-99 Last Documented: Result Date Time Pulse Ox 96 09/05 1443 B/P 156/75 09/05 1443 B/P Mean 102.0 09/05 1443 O2 Delivery Room air 09/05 144 Temp 36.9 09/05 1443 Pulse 93 09/05 [...] Exam General appearance: alert, awake, oriented, no acute distress Head/eyes: atraumatic, EOMI, normocephalic, normal conjunctiva/sclera, PERRLA ENT: normal nose, normal pharynx, moist mucosal membranes Neck: full range of motion, no lymphadenopathy, supple/no meningismus Cardiovascular: regular rate rhythm Respiratory: clear to auscultation, no distress Abdomen: soft, non-tender, no distention, active bowel sounds in all quarants. Abdomen quadrants LLQ normal bowel sounds, LUQ normal bowel sounds, RLQ normal bowel sounds, RUQ normal bowel sounds Extremities: moves all, no edema, pedal pulses Neuro/QUANTITATIVE ANALYST: 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, no sensory deficits, CNII-XII grossly intact Considered stroke alert: no [...] abdomen. Impression By: [email or web address] - Roger Parra M.D. ULTRASOUND - DUP VEIN UNI/LTD 09/05 1146 Report Impression - Status: SIGNED Entered: 09/05/2022 1333 IMPRESSION: 1. No evidence of deep vein thrombosis. 2. Complex heterogeneous hypoechoic fluid collection in the left calf region measuring 8.4 x 2.8 x 2.5 cm; there is no internal vascularity or peripheral hyperemia. May represent a hematoma. Impression By: [email or web address] - Mert Ga M.D. Diagnosis, Assessment Plan Free text A P: A/P: Patient is a 56 year old male who presents with: Past Medical History: Prostate abscess, right foot foot and ankle gangrene, diabetes, hypertension, hyperlipidemia Past Surgical History: TURP, right BKA Family History: Noncontributory Social History: Denies tobacco, alcohol, or drug use Allergies: NKDA Recent prostate abscess -Status post TURP with unroofing of abscess -IV antibiotics with vancomycin until 09-24-2022 Acute postoperative pain, right foot and ankle gangrene, requiring BKA -Patient is at risk for further amputations or loss of limb due to comorbid conditions -Status post right BKA 08/28/2022 -Tylenol 650 mg p.o. every 6 hours as needed pain scale 1 3 -[place] 10/325 1 tablet p.o. every 4 hours as needed pain scale 4 10 -Dilaudid 1 mg IV every 6 hours as needed pain scale 7 10, second line therapy- patient will require close monitoring while using IV narcotics for any deleterious effect -Lidoderm patch to left ankle daily -IV antibiotics with vancomycin until 09-24-2022 -Local wound care -manageable Diabetic peripheral neuropathy -patient is based on adrenal insufficiency -amitriptyline 25mg PO QHS - Uncontrolled diabetes, diabetes with complications, recent DKA -Hemoglobin A1c 13.4 -Recent right foot and ankle gangrene -Insulin sliding scale, FSBS, good glycemic control Hypertension -We will monitor hypertension and tachycardia due to [...] therapy. Patient will require monitoring while utilize narcotic medications [...] whom agrees. Thank you for the consultation. [place] ORCHESTRA LEADER: -database searched, no information found Kingsley Ng 09/23/22 0654: Attestations Physician Attestation Agree w/findings plan: The patient was seen and examined by Ben Klein. I personally developed the care plan, which was continued by the mid-level provider. I was immediately available. at 1507 at 0657 RPT #:[id number] END OF REPORT [facility] 2022-09-05 14:26:00 [facility] ([facility] Consultation Note REPORT#:[id number] REPORT STATUS: Signed DATE:09/05/22 TIME: 1426 PATIENT: KARMA ROWLAND UNIT #: [id number] ROOM/BED: [place] [address] : 61 AGE: 56 SEX: M ATTEND: Mj Vences MD ADM AUTHOR: Tiara Tillman LOG ROPER * ALL edits or amendments must be made on the electronic/computer document * Tiara Tillman 09/05/22 1426: History of Present Illness Reason for consult: 1. Positive FOBT 2. Acute on chronic anemia with pRBCS transfused on 08/23, 08/26, and 08/31 HPI: Patient is a 56-year-old male with history of diabetes mellitus type 2 and hypertension who was initially admitted for altered mental status and right- sided foot infection. [...] 13 years old or older: Never Smoker Other social history: Local resident, Good social support Allergies: Coded Allergies: No Known Allergies (03/23/11) Review of Systems Constitutional: Denies: chills, fever. Skin: Denies: laceration, rash. Allergy/Immun: Denies: allergic reaction, anaphylaxis. Eyes: Denies: redness, discharge. ENT: Denies: mouth pain, sinus problem. GI: Denies: abdominal pain, hematemesis, hematochezia, melena, nausea, vomiting. Objective Physical Exam VS/I O: Last Documented: Result Date Time Pulse Ox 97 09/05 741 B/P 148/70 09/05 741 B/P Mean 96.2 09/05 741 O2 Delivery Room air 09/05 741 Temp 37.1 09/05 741 Pulse 89 09/05 0742 Resp 18 09/05 741 24 hour I [...] abdomen. Impression By: [email or web address] - Roger Parra M.D. ULTRASOUND - DUP VEIN UNI/LTD 09/05 1146 Report Impression - Status: SIGNED Entered: 09/05/2022 1333 IMPRESSION: 1. No evidence of deep vein thrombosis. 2. Complex heterogeneous hypoechoic fluid collection in the left calf region measuring 8.4 x 2.8 x 2.5 cm; there is no internal vascularity or peripheral hyperemia. May represent a hematoma. Impression By: [email or web address] - Mert Ga M.D. Results: labs reviewed Diagnosis, Assessment Plan Consultants: cardiology, endocrinology, hospitalist, infectious disease, podiatry Free [...] endoscopic workup to rule out peptic ulcer disease vs vascular lesion vs malignancy 2. Acute on chronic anemia-no overt GIB with current Hgb 7.1. He has received a total of 3 units pRBCs during this hospitalization -Monitor H/H -Monitor for GIB -Transfuse if HGB <7.0 3. Gangrene to right foot s/p right BKA 4. Prostate abscess 5. MRSA bacteremia 6. History of DM Aleah Trinidad 10/06/22 0718: Diagnosis, Assessment Plan Free Text DxA P Notes Free Text DxA P Notes: Case discussed, along with examinatio and interview with LE Low. I agree with the plan and management as noted. at 1447 at 0718 RPT #:[id number] END OF REPORT [facility] 2022-09-05 14:25:00 [facility] ([facility]) Infectious Dis. Progress Note REPORT#:[id number] REPORT STATUS: Signed DATE:09/05/22 TIME: 1425 PATIENT: KARMA ROWLAND UNIT #: [id number] ROOM/BED: [place] [address] : 63 AGE: 56 SEX: M ATTEND: Mj Vences MD ADM AUTHOR: Merry Wolff MD * ALL edits or amendments must be made on the electronic/computer document * Subjective HPI: PT is a [...] reports: No: cough, diarrhea, fever, headache, nausea, shortness [...] 09/05 0742 O2 Delivery Room air 09/05 741 Temp 98.8 09/05 07 Pulse 89 09/05 0742 Resp 18 09/05 [...] Physical Exam Head/Eyes: atraumatic, clear cornea, EOMI, normal conjunctiva/sclera, normal eyelids/periorb, normocephalic, PERRL ENT: moist mucosal membranes, normal dentition Neck: full range of motion Cardiovascular: normal heart sounds, regular rate rhythm Respiratory: clear to auscultation, aerating well Abdomen: non-tender, normal bowel sounds, soft Extremities: moves all, right BKA Left foot wound +dressing in place Neuro/QUANTITATIVE ANALYST: alert, oriented X 3 Considered stroke alert: no Skin: dry, intact Portions of this section were scribed by Jill Quintero on 09/05/22 at 1428 Diagnosis, Assessment Plan Free Text A P: *MRSA bacteremia -Initial blood cultures from 08/18/2022 positive for MRSA in 2 out of 2 sets. -Repeat blood cultures 08/21/2022 are already positive for MRSA in 2 out of 2 sets, suggesting persistent high-grade bacteremia. -TTE 08/18/2022 negative for any obvious vegetations. -08/28 neg -JIMENA 09/02 neg *Prostatic abscess -s/p transrectal aspiration and unroofing on 08/26 -cx MRSA, citrobacter (r-cefazolin) Enterococcus raffinosus (S-amp,pcn, vancomycin), bacteriodes *ERIKA *Hyponatremia *Diabetic neuropathy *Diabetes mellitus type 2 *Hypertension 09/05 -cont on Cefepime and Daptomycin til 09/24 for treatment of Prostate abscess -follow esr and crp Consultants: cardiology, endocrinology, hospitalist, infectious disease, podiatry Portions of this section were scribed by Jill Quintero on 09/05/22 at 1428 at 1103 RPT #:[id number] END OF REPORT [facility] 2022-09-05 11:05:00 [facility] Hospitalist Progress Note REPORT#:[id number] REPORT STATUS: Signed DATE:09/05/22 TIME: 1105 PATIENT: KARMA ROWLAND UNIT #: [id number] ROOM/BED: [place] [address] : 63 AGE: 56 SEX: M ATTEND: Mj Vences MD ADM AUTHOR: Wilbert Ramires MD * ALL edits or amendments must be made on the electronic/computer document * Subjective Chief complaint: admitted to [...] rate rhythm Respiratory: aerating well, clear to auscultation Abdomen: non-tender, normal bowel sounds Genitourinary: no flank pain Extremities: moves all, normal capillary refill Musculoskeletal: normal inspection, painless range of motion Neuro/QUANTITATIVE ANALYST: alert, oriented X 3, normal speech Considered stroke alert: no Skin: dry, intact Psychiatry: normal affect, normal judgment/insight Results Findings/Data: Laboratory Tests 09/05 2042 1557 [...] STOOL Diagnosis, Assessment Plan Consultants: cardiology, endocrinology, hospitalist, infectious disease, podiatry Free Text DxA P Notes Free text DxA P notes: Gangrene of right foot s/p Below- knee amputation Prostate abscess MRSA bacteremia Hx of Diabetes, Diabetic neuropathy PLANS: Continue with ABx as dierected- currently on Daptomycin and Cefepime Continue with PT/OT per primary Fall precautions Nutritional support pain control Tight glycemia control- endocrine on board, insulin adjustments Wound care as directed Hepain PPX Continue with supportive / care follow hgb closely and transfuse as needed at 1106 RPT #:[id number] END OF REPORT [facility] 2022-09-05 11:02:00 [facility] ([facility]) Cardiology Progress Note REPORT#:[id number] REPORT STATUS: Signed DATE:09/05/22 TIME: 1102 PATIENT: KARMA ROWLAND UNIT #: [id number] ROOM/BED: [place] [address] : 61 AGE: 56 SEX: M ATTEND: Mj Vences MD ADM AUTHOR: Rohit Benitez LOG ROPER * ALL edits or amendments must be made on the electronic/computer document * Rohit Benitez 09/05/22 1102: Subjective Chief complaint: weakness Free Text Subj Notes Free Text Subj Notes: Patient seen and evaluated. Pending lower extremity ultrasound. [...] regular rate and rhythm, no ectopy, no gallop Respiratory: clear to auscultation, no distress Abdomen: soft, non-tender Lower extremity: LE assessment: edema, normal temperature Neuro/QUANTITATIVE ANALYST: alert, oriented X 3 Considered stroke alert: no Wound/incision: Location: right bka Psychiatry: normal affect, normal judgment/insight, normal mood Results Findings/Data: Laboratory Tests 09/05 09/04 09/04 0615 2042 1557 [...] Report Impression - Status: SIGNED Entered: 09/04/2022 5890 IMPRESSION: Benign appearance of the abdomen. Impression By: [email or web address] - Roger Parra M.D. Diagnosis, Assessment Plan Consultants: cardiology, endocrinology, hospitalist, infectious disease, podiatry Free [...] rehab for physical therapy. Known cardiac history of hypertension and hyperlipidemia. Vital signs stable. Echocardiogram with [...] BMP in the morning. Supportive care. Plan of care discussed with [...] RN and Dr. Parham. Napoleon Parham 09/06/22 1633: Diagnosis, Assessment Plan Additional comments: Patient was seen and examined at bedside, agree with above assessment and plan as documented by nurse practitioner. Will follow. at 1601 at 1638 [facility] #:[id number] END OF REPORT [facility] 2022-09-05 06:16:00 [facility]) Rehab Progress Note REPORT#:[id number] REPORT STATUS: Signed DATE:09/05/22 TIME: 615 PATIENT: KARMA ROWLAND UNIT #: [id number] ROOM/BED: [place] [address] : 61 AGE: 56 SEX: M ATTEND: Mj Vences MD ADM AUTHOR: Mj Vences MD * ALL edits or amendments must be made on the electronic/computer document * Subjective Chief complaint: Rehabilitation follow-up Doing better, feels some abdominal distention but no pain Left leg with edema Had BM as per patient and RN Patient very motivated Eating Denies nausea, vomiting, fever, chills, chest pain, shortness of breath History of present illness: [...] is wearing a nestor-tech orthotic for right knee/BKA protection. Prior to [...] Exam General appearance: alert, awake, no acute distress Psych: alert, normal affect, oriented x 3 HEENT: anicteric, sclera clear Neck: supple, no JVD Cardiovascular: S1/S2, no murmur Respiratory: aerating well, clear bilaterally Abdomen: bowel sounds present, non-distended, soft, non-tender Skin: no rash, R BKA wrapped healing. L ankle/foot wrapped with kerlix Musculoskeletal - general: Musculoskeletal - general: swelling (LLE, calve NT, homans neg), BUE 5/5, LLE 4/5, R hip 3- Neuro/QUANTITATIVE ANALYST: alert, oriented X 3, CNII-XII intact Results [...] 09/02 09/02 09/03 1513 1732 1908 1929 8345 Chemistry Sodium (134 - 147 mEq/L) 135 [...] % (Auto) (14.0 - 32.0 %) 15.1 [place] % (Auto) (4.8 - 9.0 %) 6.8 Eos % (Auto) (0.3 - 3.7 %) 2.3 Baso % (Auto) (0.0 - 2.0 %) 0.3 Neut # (Auto) (2.0 - 7.6 x10 3/uL) 6.51 Lymph # (Auto) (1.0 - 3.8 x10 3/uL) 1.31 [place] # (Auto) (0.1 - 0.8 x10 3/uL) [...] Report Impression - Status: SIGNED Entered: 09/04/2022 007 IMPRESSION: Benign appearance of the abdomen. Impression By: [email or web address] - Roger Parra M.D. Diagnosis, Assessment Plan Problem List/A P: 1. Gangrene of right foot 2. Below-knee amputation of right lower extremity 3. MRSA bacteremia 4. Cellulitis of foot, right 5. DKA (diabetic ketoacidosis) 6. Hyperglycemia 7. ERIKA (acute kidney injury) 8. Postoperative pain 9. Acute anemia 10. Prostate abscess 11. 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 Leroy Significant impairment in self-care, ADLs and functional mobility Impaired mobility and gait Acute postoperative pain right BKA, left foot and ankle Diabetic polyneuropathy DKA, DM 2, poorly controlled, A1c greater than 14 PAD MRSA bacteremia/sepsis-treated on acute ERIKA Severe hyponatremia-resolved HTN Acute on chronic anemia requiring multiple transfusions, possible GI bleed Left calf hematoma Edema and clinical arthritis left ankle Early decubitus to left heel/DTI dorsal left midfoot Prostatic abscess 08/26: S/p transrectal ultrasound aspiration [...] -Early decubitus to left heel/DTI dorsal left midfoot-zinc oxide to the foot, foam, offloading, podiatry managing -DVT prophylaxis-subcutaneous heparin -Strict fall and safety precautions -Work on bed mobility, transfer training, ADLs, pre-gait and gait exercises -Increase endurance and strength -Monitor pain with therapies -OOB to chair -Monitor p.o. intake and nutrition, albumin 1.3, prealbumin less than 5, dietary consultation, protein supplements to promote healing -Continue antibiotics per ID -Tight glycemia control- endocrine on board, insulin adjustments -Endocrinology, ID, podiatry, cardiology, IM consulted -Pain management adjusting pain medications -Labs reviewed-WBC normal, hemoglobin 8, 6.8, 7.7, 7.1 platelets normal, chemistries good, creatinine 1.1, magnesium normal -Anemia, patient required multiple units of PRBCs on acute, FOBT positive -Start IV Protonix-consult GI-serial H H-no evidence of gross bleeding-discussed with Dr. Trinidad -Constipation-abdominal gtktinru-DNY-vacrmy-CW Senokot and MiraLAX, DSP -Right PBN-itrzduq-gxhjsyee resolved, dressings changed bkdma-vjomrmt-jrxzugjb NESTOR-TECH -MRSA OF NARES on Bactroban protocol -LLE edema-check venous Doppler -Generalized edema-some shortness of breath and abdominal distention-cardiology gave a dose of IV Lasix-monitor urine output, daily weights -Chest x-ray pending ordered by cardio -Anemia-transfused 2 units of PRBC-discussed with medicine-see orders -Advance therapies as tolerated-discussed treatment plan with [...] AND SCOOTING ASSIST. PATIENT WORKED ON WC MOB WITH JM 150 FEET X 2 ASSIST FOR TURNS. PATIENT WORKED ON TRANSFERS BACK TO BED WITH USE OF SB, WITH MIN A FOR SAFETY , SET UP AND SCOOTING ASSIST, REQUIRED [...] Complete Consultants: cardiology, endocrinology, hospitalist, infectious disease, podiatry Rehab attestation: Face to face exam completed. Treatment plan discussed with patient. Meets continued stay criteria. Agree with interdisciplinary treatment plan. at 1308 RPT #:[id number] END OF REPORT [facility] 2022-09-04 17:38:00 [facility]) Endocrinology Progress Note REPORT#:[id number] REPORT STATUS: Signed DATE:09/04/22 TIME: 1738 PATIENT: KARMA ROWLAND UNIT #: [id number] ROOM/BED: [place] [address] : 63 AGE: 56 SEX: M ATTEND: Mj Vences MD ADM AUTHOR: Braxton Chapin MD * ALL edits or amendments must be made on the electronic/computer document * Subjective Patient reports: no complaints [...] COLB STOOL 1.Diabetes mellitus type 2 uncontrolled complications. 2. 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 4. Sepsis 5. Prostate abscess. 6. Anemia Blood sugar 87-10 7 mg/dL. Adjust insulin dose. PT and OT. Consultants: cardiology, endocrinology, hospitalist, infectious disease, podiatry at 1740 RPT #:[id number] END OF REPORT [facility] 2022-09-04 15:24:00 [facility] ([facility]) Infectious Dis. Progress Note REPORT#:[id number] REPORT STATUS: Signed DATE:09/04/22 TIME: 1524 PATIENT: KARMA ROWLAND UNIT #: [id number] ROOM/BED: [place] [address] : 61 AGE: 56 SEX: M ATTEND: Mj Vences MD ADM AUTHOR: Merry Wolff MD * ALL edits or amendments must be made on the electronic/computer document * Subjective HPI: PT is a [...] blood sugars are on the low side today 09/04 Portions of this section were scribed by Jill Quintero on 09/04/22 at 1524 Objective General VS/I O: Vital Signs Date Temp Pulse Resp B/P B/P Mean Pulse Ox FiO2 09/03-09/04 97.5-98.1 80-92 16-18 128-159/65-79 85.6-104.5 96-100 Last Documented: Result Date Time Pulse Ox 99 09/04 0718 B/P 133/69 09/04 0618 B/P Mean 90.3 09/04 0718 O2 Delivery Room air 09/04 717 Temp 97.5 09/04 717 Pulse 80 09/04 717 Resp 18 09/04 717 Vital Signs: Date [...] hour I O ending at 0700: 09/04 1900 Intake Total 598 Output Total 400 [...] awake, oriented Head/Eyes: atraumatic, clear cornea, EOMI, normal conjunctiva/sclera, normal eyelids/periorb, normocephalic, PERRL ENT: moist mucosal membranes, normal dentition Neck: full range of motion Cardiovascular: normal heart sounds, regular rate rhythm Respiratory: clear to auscultation, aerating well Abdomen: non-tender, normal bowel sounds, soft Extremities: moves all, right BKA Left foot wound +dressing in place Neuro/QUANTITATIVE ANALYST: alert, oriented X 3 Considered stroke alert: [...] 09/03 09/02 09/02 1116 0518 0415 1929 1908 Chemistry Sodium (134 [...] % (Auto) (14.0 - 32.0 %) 15.1 [place] % (Auto) (4.8 - 9.0 %) 6.8 Eos % (Auto) (0.3 - 3.7 %) 2.3 Baso % (Auto) (0.0 - 2.0 %) 0.3 Neut # (Auto) (2.0 - 7.6 x10 3/uL) 6.51 Lymph # (Auto) (1.0 - 3.8 x10 3/uL) 1.31 [place] # (Auto) (0.1 - 0.8 x10 3/uL) [...] 10/03 0129 Cefepime HCl 1 GM Q6H 04/11 2100 AC 09/04 Sodium Chloride 10 ML IV 09/13 2058 0814 Blood Formation,Coagulation Sig/Jan Start time Last Medication Dose Route Stop Time Status Admin Heparin Sodium 5,000 UNIT Q8HR 09/02 2200 AC 09/04 SUBQ 10/02 2159 0533 Cardiovascular Drugs Sig/Jan [...] sets. -Repeat blood cultures 08/21/2022 are already positive for MRSA in 2 out of 2 sets, suggesting persistent high-grade bacteremia. -TTE 08/18/2022 negative for any obvious vegetations. -08/28 neg -JIMENA 09/02 pending results *Prostatic abscess -s/p transrectal aspiration and unroofing on 08/26 -cx MRSA, citrobacter (r-cefazolin) Enterococcus raffinosus (S-amp,pcn, vancomycin), bacteriodes *ERIKA *Hyponatremia *Diabetic neuropathy *Diabetes mellitus type 2 *Hypertension 09/03 Follow JIMENA results; may need 6 weeks of daptomycin if (+)VE -cont on Cefepime and Daptomycin til 09/24 for treatment of Prostate abscess -follow esr and crp Consultants: cardiology, endocrinology, hospitalist, infectious disease, podiatry Portions of this section were scribed by Jill Quintero on 09/04/22 at 1524 at 1700 RPT #:[id number] END OF REPORT [facility] 2022-09-04 15:13:00 [facility] ([facility]) Pain Management Progress Note REPORT#:[id number] REPORT STATUS: Signed DATE:09/04/22 TIME: 1512 PATIENT: KARMA ROWLAND UNIT #: [id number] ROOM/BED: [place] [address] : 63 AGE: 56 SEX: M ATTEND: Mj Vences MD ADM AUTHOR: Ben Klein * ALL edits or amendments must be made on the electronic/computer document * Ben Klein 09/04/221512: Subjective Chief complaint: Patient seen and examined. Chart/MAR reviewed. Patient is working with physical therapy. Jeannie explaine to use the Glenrock more often to help with his BKA discomfort. He is still requiring IV narcotics as well. He does express some burning/stinging in his leg today, moderate intensity , discomfort at rest, no exacerbate factors or alleviating factors. We discussed starting something for neuropathy. Patient being seen for Acute postoperative pain, right foot and ankle gangrene, requiring BKA, Constipation Patient is still requiring medications to help with managing current problems. Patient is requiring IV narcotics to help manage breakthrough pain No fever/chills, chest pain, orthopnea, nausea/vomiting, pruritus, or hallucinations. 14 point ROS undertaken unremarkable except as noted Objective General VS/I O: Vital Signs Date Temp Pulse Resp B/P B/P Mean Pulse Ox FiO2 09/03-09/04 36.4-36.7 80-92 16-18 128-159/65-79 85.6-104.5 96-100 Last Documented: Result Date Time Pulse Ox 99 09/04 0618 B/P 133/69 09/04 0618 B/P Mean 90.3 09/04 0618 O2 Delivery Room air 09/04 717 Temp [...] Exam General appearance: alert, awake, oriented, no acute distress Head/eyes: atraumatic, EOMI, normocephalic, normal conjunctiva/sclera, PERRLA ENT: normal pharynx, moist mucosal membranes Neck: full range of motion, no lymphadenopathy, supple/no meningismus Cardiovascular: regular rate rhythm Respiratory: clear to auscultation, no distress Abdomen: soft, non-tender, no distention, active bowel sounds in all quarants. Abdomen quadrants LLQ normal bowel sounds, LUQ normal bowel sounds, RLQ normal bowel sounds, RUQ normal bowel sounds Extremities: moves all, no edema, pedal pulses Neuro/QUANTITATIVE ANALYST: 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, no sensory deficits, CNII-XII grossly intact Considered stroke alert: no [...] foot foot and ankle gangrene, diabetes, hypertension, hyperlipidemia Past Surgical History: TURP, right BKA Family History: Noncontributory Social History: Denies tobacco, alcohol, or drug use Allergies: NKDA Recent prostate abscess -Status post TURP with unroofing of abscess -IV antibiotics with vancomycin until 09-24-2022 Acute postoperative pain, right foot and ankle gangrene, requiring BKA -Patient is at risk for further amputations or loss of limb due to comorbid conditions -Status post right BKA 08/28/2022 -Tylenol 650 mg p.o. every 6 hours as needed pain scale 1 3 -Glenrock 10/325 1 tablet p.o. every 4 hours as needed pain scale 4 10 -Dilaudid 1 mg IV every 6 hours as needed pain scale 7 10, second line therapy- patient will require close monitoring while using IV narcotics for any deleterious effect -Lidoderm patch to left ankle daily -IV antibiotics with vancomycin until 09-24-2022 -Local wound care -manageable Diabetic peripheral neuropathy -patient is based on adrenal insufficiency -will start amitriptyline 25mg PO QHS - Uncontrolled diabetes, diabetes with complications, recent DKA -Hemoglobin A1c 13.4 -Recent right foot and ankle gangrene -Insulin sliding scale, FSBS, good glycemic control Hypertension -We will monitor hypertension and tachycardia due to [...] therapy. Patient will require monitoring while utilize narcotic medications [...] whom agrees. Thank you for the consultation. [place] ORCHESTRA LEADER: -database searched, no information found Kingsley Ng 09/23/22 0653: Attestations Physician Attestation Agree w/findings plan: The patient was seen and examined by Ben Klein. I personally developed the care plan, which was continued by the mid-level provider. I was immediately available. at 1526 at 0656 RPT #:[id number] END OF REPORT [facility] 2022-09-04 12:35:00 [facility] Pharmacy Prog.Note-Vancomycin REPORT#:[id number] REPORT STATUS: Signed DATE:09/04/22 TIME: 1235 PATIENT: KARMA ROWLAND UNIT #: [id number] ROOM/BED: [place] [address] : 61 AGE: 56 SEX: M ATTEND: Mj Vences MD ADM AUTHOR: Wilian Jasso [facility] * ALL edits or amendments must be made on the electronic/computer document * Vancomycin Vancomycin Medication Therapy Goal: AUC 400-600 mg*hr/L Indication for treatment: OM and MRSA Bacteremia Current therapy: vanc 1 g IV Q24H VS and I/O: Vital Signs Date Temp Pulse Resp B/P B/P Mean Pulse Ox FiO2 09/02-09/04 97.3-99.1 80-92 16-18 116-164/50-85 72.3-111.0 94-100 72 hours ending at 0700 09/04 07 1900 Intake 598 240 Total Output 400 850 Total Balance 198 -610 Intake, 598 240 Oral Number 0 0 Incontinen t Voids Number 0 1 Voids Output, 400 850 Urine Patient 75 kg Weight Weight Bed scale Measuremen t Method 72 Hour I O Total 09/04 07 Intake Total 598 240 Output Total 400 850 Balance 198 -610 Labs: Laboratory Tests: 09/04 1835 Toxicology Vancomycin Peak (30 - 40 MCG/ML) 27.4 L Laboratory Test : 09/03 414 Chemistry BUN (7 - 18 mg/dL) 22 H Creatinine (0.6 - 1.3 mg/dL) 1.1 Hematology WBC (4.5 - 11.0 x10 3/uL) 8.7 Microbiology: 09/04 1037 STOOL: Occult Blood - COLB 09/03 0415 NASAL: MRSA DNA Surveillance Screen - COMP Treatment plan: consult, cont current regimen/dose Regimen: 56yr old male with history of [...] intramuscular compartments of the foot, compatible with gas- forming infection. Patient's [...] with merrem/ daptomycin. ID adjusting regimen to cefepime/vancomycin. Pharmacy consulted to dose vancomycin. Consulting provider: Dr. Wolff Indication: MRSA Bacteremia Goal: AUC 400-600 mcg*hr/ml A/P 09/03: * Pt transferred [facility] to [facility] rehab. * Afebrile, WBC 8.7 * 09/03 BUN 22, SCr 1.1, eCrCl 66 ml/min, UOP 400 ml/24hrs * Micro: 08/26 prostate abscess: C farmeri, MRSA, E raffinosus. 08/18, 08/19, 08/21 , [...] Thanks for the consult. at 1237 RPT #:[id number] END OF REPORT [facility] 2022-09-04 10:37:00 [facility] ([facility]) Cardiology Progress Note REPORT#:[id number] REPORT STATUS: Signed DATE:09/04/22 TIME: 1037 PATIENT: KARMA ROWLAND UNIT #: [id number] ROOM/BED: [place] [address] : 61 AGE: 56 SEX: M ATTEND: Mj Vences MD ADM AUTHOR: Rohit Benitez LOG ROPER * ALL edits or amendments must be made on the electronic/computer document * Rohit Benitez 09/04/22 1037: Subjective [...] 10 ML Insulin Glargine (Lantus/Semglee) 15 UNIT BEDTIME SUBQ [...] regular rate and rhythm, no ectopy, no gallop Respiratory: clear to auscultation, no distress Abdomen: soft, non-tender Lower extremity: LE assessment: edema, normal temperature Neuro/QUANTITATIVE ANALYST: alert, oriented X 3 Considered stroke alert: no Wound/incision: Location: right bka Psychiatry: normal affect, normal judgment/insight, normal mood Results Findings/Data: Laboratory Tests 09/04 [...] L Diagnosis, Assessment Plan Consultants: cardiology, endocrinology, hospitalist, infectious disease, podiatry Free [...] rehab for physical therapy. Known cardiac history of hypertension and hyperlipidemia. Vital signs stable. Echocardiogram with [...] BMP in the morning. Supportive care. Plan of care discussed with patient, RN and Dr. Parham. Napoleon Parham 09/06/22 1632: Diagnosis, Assessment Plan Additional comments: Patient was seen and examined at bedside, agree with above assessment and plan as documented by nurse practitioner. Monitor I's and O's. Will follow. at 1831 at 1637 RPT #:[id number] END OF REPORT [facility] 2022-09-04 10:31:00 [facility] ([facility] Rehab Progress Note REPORT#:[id number] REPORT STATUS: Signed DATE:09/04/22 TIME: 1031 PATIENT: KARMA ROWLAND UNIT #: [id number] ROOM/BED: [place] [address] : 61 AGE: 56 SEX: M ATTEND: Mj Vences MD ADM AUTHOR: Mj Vences MD * ALL edits or amendments must be made on the electronic/computer document * Subjective Chief complaint: Rehabilitation follow-up Patient complaining of decreased appetite and abdominal fullness, no pain Placed on stool softeners Patient very motivated Eating Denies nausea, vomiting, fever, chills, chest pain, shortness of breath History of present illness: [...] is wearing a nestor-tech orthotic for right knee/BKA protection. Prior to [...] 10 ML Insulin Glargine (Lantus/Semglee) 15 UNIT BEDTIME SUBQ [...] Exam General appearance: alert, awake, no acute distress Psych: alert, normal affect, oriented x 3 HEENT: anicteric, sclera clear Neck: supple, no JVD Cardiovascular: S1/S2, no murmur Respiratory: aerating well, clear bilaterally Abdomen: bowel sounds present, non-distended, soft, non-tender Skin: no rash, R BKA wrapped with kerlix and JOAN. 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 Leroy Significant impairment in self-care, ADLs and functional mobility Impaired mobility and gait Postoperative pain Diabetic polyneuropathy DKA, DM 2, poorly controlled, A1c greater than 14 PAD MRSA bacteremia/sepsis-treated on acute ERIKA Severe hyponatremia-resolved HTN Acute on chronic anemia requiring multiple transfusions Left calf hematoma Edema and clinical arthritis left ankle Early decubitus to left heel/DTI dorsal left midfoot Prostatic abscess 08/26: S/p transrectal ultrasound aspiration of abscess and transurethral resection of prostate and unroofing of abscess 09/02: JIMENA negative for vegetation MRSA OF NARES Plan: -PLOF: Independent with transfers and gait -Amputee rehab program -Continue PT and OT -15/12 rehabilitation nursing care. -Case management for safe discharge planning. -Decubitus prevention -Early decubitus to left heel/DTI dorsal left midfoot-zinc oxide to the foot, foam, offloading, podiatry managing -DVT prophylaxis-subcutaneous heparin -Strict fall and safety precautions -Work on bed mobility, transfer training, ADLs, pre-gait and gait exercises -Increase endurance and strength -Monitor pain with therapies -OOB to chair -Monitor p.o. intake and nutrition, albumin 1.3, prealbumin less than 5, dietary consultation, protein supplements to promote healing -Continue antibiotics per ID -Tight glycemia control- endocrine on board, insulin adjustments -Endocrinology, ID, podiatry, cardiology, IM consulted -Consult pain management -Labs reviewed-WBC normal, hemoglobin 8, 6.8, 7.7 platelets normal, chemistries good, creatinine 1.1, magnesium normal -Anemia, repeat H H improved, patient did require multiple units of PRBCs on acute, check FOBT -Right ULP-vdktytc-xzvqnhcp resolved, dressings changed ewcur-nloildr-oxvkxmkp Nestor-TECH -MRSA OF NARES on Bactroban protocol -Constipation-abdominal fullness-check KUB-add Senokot and MiraLAX, DSP -Advance therapies as tolerated -Patient benefiting from therapies and improving mobility and strength, requires max assist for transfers due to weakness and amputation Progress: PATIENT WORKED ON BED MOB, ABLE TO SIT UP EOB WITH MIN A , TRANSFERS TO WC WITH MAX A KEEPING RLE NWB. FLOT TECH ONE. PATIENT WORKED ON WC MOB WITH MOD A FOR TURNS AND PROPULSION ,IN THE GYM PATIENT WORKED ON [...] patient about constipation, anemia, amputation rehab, rehab plan of care, goals, therapies, progress, labs, medications. All questions answered Orders: Procedure Date/time Status HGB HCT 09/05 0400 Active XR ABDOMEN AP 1V 09/04 1156 Active FECAL OCCULT BLOOD 09/04 1037 Active OT FUNCTIONAL TRN 15 MIN 09/04 UNK Complete OT EXERCISE 15MIN 09/04 UNK Complete Consultants: cardiology, endocrinology, hospitalist, infectious disease, podiatry Rehab attestation: Face to face exam completed. Treatment plan discussed with patient. Meets continued stay criteria. Agree with interdisciplinary treatment plan. at 1524 RPT #:[id number] END OF REPORT [facility] 2022-09-04 09:02:00 [facility] ([facility]) Hospitalist Progress Note REPORT#:[id number] REPORT STATUS: Signed DATE:09/04/22 TIME: 901 PATIENT: KARMA ROWLAND UNIT #: [id number] ROOM/BED: [place] [address] : 63 AGE: 56 SEX: M ATTEND: Mj Vences MD ADM AUTHOR: Wilbert Ramires MD * ALL edits or amendments must be made on the electronic/computer document * Subjective Chief complaint: admitted to [...] 10 ML Insulin Glargine (Lantus/Semglee) 15 UNIT BEDTIME SUBQ [...] rate rhythm Respiratory: aerating well, clear to auscultation Abdomen: non-tender, normal bowel sounds Genitourinary: no flank pain Extremities: moves all, normal capillary refill Musculoskeletal: normal inspection, painless range of motion Neuro/QUANTITATIVE ANALYST: alert, oriented X 3, normal speech Considered stroke alert: no Skin: dry, intact Psychiatry: normal affect, normal judgment/insight Results Findings/Data: Laboratory Tests 09/04 09/04 09/03 [...] L Diagnosis, Assessment Plan Consultants: cardiology, endocrinology, hospitalist, infectious disease, podiatry Free Text DxA P Notes Free text DxA P notes: Gangrene of right foot s/p Below- knee amputation Prostate abscess MRSA bacteremia Hx of Diabetes, Diabetic neuropathy PLANS: Continue with ABx as dierected- currently on Daptomycin and Cefepime Continue with PT/OT per primary Fall precautions Nutritional support pain control Tight glycemia control- endocrine on board, insulin adjustments Wound care as directed Hepain PPX Continue with supportive / care at 1105 RPT #:[id number] END OF REPORT [facility] 2022-09-04 08:56:00 [id number] [place] [address] PATIENT NAME: KARMA ROWLAND ADMIT DATE: 08/18/22 ACCOUNT NO: [id number] ROOM NO: [facility] AGE: 56 REPORT TYPE: eTRANSESOPHAGEAL ECHO REPORT SEX: M ADMITTING PHYSICIAN:Wilbert Ramires MD ATTENDING PHYSICIAN:Wilbert Ramires MD *[place] [address] Transesophageal Echocardiogram Patient: Karma Rowland Study Date: 09/02/2022 BP: 138 / 65 Location: [facility] URN: [id number] : 1965 Age: 56 Height: 66 in / 167.6 cm Gender: M Weight: 153.7 lb / 69.9 kg BMI/BSA: 24.9 kg/m 2 / 1.79 m 2 *Ordering Physician: * Rohit Benitez *Interpreting Physician: * Napoleon Parham MD *Communications Strategist: * Sarah Lam ------ Indications: Endocarditis Acute/subacute bacterial. ------ Study data: Consent: The risks, benefits, and alternatives to the procedure were explained to the patient and informed consent was obtained. Procedure: Initial setup: The patient was brought to the laboratory in the fasting state.Intravenous access was obtained. Surface ECG leads and pulse oximetric signals were monitored. Sedation. Moderate sedation was administered by cardiology staff. Transesophageal echocardiography was performed. Topical anesthesia was obtained using benzocaine spray. A transesophageal probe (SN: [id number]) was inserted by the attending market development manager without difficulty. Images were obtained using a [employer] cardiac ultrasound machine. Image quality was adequate. The transesophageal probe was removed. Limited 2D, limited spectral Doppler, and color Doppler. Location: [facility]. Patient status: Inpatient. Patient room number: [facility]. Study status: Routine. Study completion: The patient tolerated the procedure well. There were no PATIENT NAME: KARMA ROWLAND complications. ------ Findings Left ventricle: The cavity size is normal. Wall thickness is at the upper limits of normal. Systolic function is normal. The estimated ejection fraction is 55-59%. Right ventricle: The cavity size is normal. Systolic function is normal. Left atrium: The atrium is mildly dilated. The appendage is of normal size. Emptying velocity is normal. There is no evidence of a thrombus in the atrial cavity or appendage. No spontaneous echo contrast is observed. Right atrium: The atrium is normal in size. Aorta: A single aortic arch is present. Brachiocephalic branching is normal. The right innominate artery is the first aortic branch. The aorta is normal size, calcified, and non-diseased. Aortic valve: The valve is structurally normal. The valve is trileaflet. Cusp separation is normal. There is no evidence of a vegetation. There is no evidence of stenosis. There is no regurgitation. Mitral valve: The valve is structurally normal. There is no evidence of a vegetation. There is no evidence of stenosis. There is trivial regurgitation. Tricuspid valve: The valve is structurally normal. There is no evidence of a vegetation. There is trivial regurgitation. Pulmonic valve: Not well visualized. The valve is structurally normal. There is no evidence of a vegetation. There is no regurgitation. Pericardium: A trivial pericardial effusion is identified posterior to the heart. Pulmonary arteries: Main pulmonary artery: The artery is of normal size. Systemic veins: Inferior vena cava: The vessel is at the upper limits of normal in size. ------ Conclusions Summary: 1. Left ventricle: The cavity size is normal. Wall thickness is at the upper limits of normal. Systolic function is normal. The estimated ejection fraction is 55-59%. 2. Left atrium: The atrium is mildly dilated. There is no evidence of a thrombus in the atrial cavity or appendage. No spontaneous echo contrast is observed. 3. Aortic valve: There is no evidence of a vegetation. 4. Mitral valve: There is no evidence of a vegetation. There is trivial regurgitation. 5. Tricuspid valve: There is no evidence of a vegetation. There is trivial regurgitation. 6. Pulmonic valve: There is no evidence of a vegetation. PATIENT NAME: KARMA ROWLAND 7. Pericardium, extracardiac: A trivial pericardial effusion is identified posterior to the heart. Prepared and electronically signed by Napoleon Parham MD 09/04/2022 08:56 at 0856 PATIENT NAME: KARMA ROWLAND [facility] 2022-09-04 07:49:00 [facility] Podiatry Progress Note REPORT#:[id number] REPORT STATUS: Signed DATE:09/04/22 TIME: 0749 PATIENT: KARMA ROWLAND UNIT #: [id number] ROOM/BED: [place] [address] : 63 AGE: 56 SEX: M ATTEND: Mj Vences MD ADM AUTHOR: Liam Jeffrey DPM * ALL edits or amendments must be made on the electronic/computer document * Subjective Chief complaint: left heel ulcer. left ankle pain Patient reports: no chest pain, no cough, no [...] 10 ML Insulin Glargine (Lantus/Semglee) 15 UNIT BEDTIME SUBQ [...] 24 hour I O ending at 0700: 0413 0700 04/12 1900 Intake Total 598 Output Total 400 Balance 198 Intake, Oral 598 Number 0 Incontinent Voids Number Voids 0 Output, Urine 400 Patient 75 kg Weight Weight Bed scale Measurement Method Dietitian nutrition assessment The data set between the solid lines has been imported from the dietitian's assessment. BMI Calculated: 26.7 Nutrition related diagnosis: Nutrition diagnosis details: Nutrition problem: Altered nutrition labs Nutrition etiology: DM Nutrition signs and symptoms: HYPER/HYPOGLYCEMIA, A1C >14 Nutrition prescription: CONTINUE DM DIET Dietitian name: Klaus Kaiser, DIET Assessment completed: 09/03/22 Physical Exam General appearance: alert, awake, oriented Wound/incision: Location: left foot Site condition: dp/pt 2/4 left. light touch decreased left foot. ulcer starting at posterior left heel. eccymosis noted. early likely stage 1. left ankle has edema. pain with aggressive ROM left ankle. LE vascular pulse assess: 2+ L posterior [...] to heel on IV abx offloading boot joan wraps to ankle Consultants: cardiology, endocrinology, hospitalist, infectious disease, podiatry at 0750 RPT #:[id number] END OF REPORT [facility] 2022-09-03 20:06:00 [facility] ([facility]) Podiatry Consult Note REPORT#:[id number] REPORT STATUS: Signed DATE:09/03/22 TIME: 2005 PATIENT: KARMA ROWLAND UNIT #: [id number] ROOM/BED: [place] [address] : 63 AGE: 56 SEX: M ATTEND: Mj Vences MD ADM AUTHOR: Liam Jeffrey DPM * ALL edits or amendments must be made on the electronic/computer document * History of Present Illness Chief [...] 13 years old or older: Never Smoker Other social history: Local resident, Good social support Allergies: Coded Allergies: No Known Allergies [...] 24 Hrs Insulin Glargine (Lantus/Semglee) 10 UNIT BEDTIME SUBQ Insulin [...] 10 ML Insulin Glargine (Lantus/Semglee) 15 UNIT BEDTIME SUBQ [...] 24 hour I O ending at 0700: 04/12 0700 04/11 1900 Intake Total 240 Output Total 850 Balance -610 Intake, Oral 240 Number 0 Incontinent Voids Number Voids 1 Output, Urine 850 Dietitian nutrition assessment The data set between the solid lines has been imported from the dietitian's assessment. BMI Calculated: 26.7 Nutrition related diagnosis: Nutrition diagnosis details: Nutrition problem: Altered nutrition labs Nutrition etiology: DM Nutrition signs and symptoms: HYPER/HYPOGLYCEMIA, A1C >14 Nutrition prescription: CONTINUE DM DIET Dietitian name: Klaus Kaiser, DIET Assessment completed: 09/03/22 Physical Exam General appearance: alert, awake, oriented, pleasant, no respiratory distress Wound/incision: Location: left foot Site condition: dp/pt 2/4 left. light touch decreased left foot. ulcer starting at posterior left heel. eccymosis noted. early likely stage 1. left ankle has edema. pain with aggressive ROM left ankle. LE vascular pulse assess: 2+ L posterior [...] % (Auto) (14.0 - 32.0 %) 15.1 [place] % (Auto) (4.8 - 9.0 %) 6.8 Eos % (Auto) (0.3 - 3.7 %) 2.3 Baso % (Auto) (0.0 - 2.0 %) 0.3 Neut # (Auto) (2.0 - 7.6 x10 3/uL) 6.51 Lymph # (Auto) (1.0 - 3.8 x10 3/uL) 1.31 [place] # (Auto) (0.1 - 0.8 x10 3/uL) [...] 3/uL) 0.00 Diagnosis, Assessment Plan Free Text A P: DM with neuropathy early decub ulcer left heel OA/edema left ankle DTI dorsal left midfoot zinc oxide foam to heel on IV abx offloading boot joan wraps to ankle discussed with primary team/PMR Consultants: cardiology, endocrinology, hospitalist, infectious disease, podiatry at 2015 RPT #:[id number] END OF REPORT [facility] 2022-09-03 15:03:00 [id number] [place] [address] PATIENT NAME: KARMA ROWLAND ADMIT DATE: 09/02/22 ACCOUNT NO: [id number] ROOM NO: [facility] AGE: 56 REPORT TYPE: CONSULTATION [...] patient also has history of anemia. PHYSICAL EXAMINATION: GENERAL: Today, the patient is alert, awake, little bit apprehensive, is thin built. VITAL SIGNS: His heart rate is around 70, blood pressure is 120/70 mmHg. HEENT: Essentially unremarkable. NECK: Thyroid is palpable. Clinically, he is near euthyroid. CHEST: Bilateral vesicular breathing. He has mild bronchospasm. CARDIAC: Both first and second heart sounds. There is no third or fourth heart sound. Ejection sounds grade II/. EXTREMITIES: The patient has evidence of diabetic sensory neuropathy in lower extremities and status post hjtio-bsd-jxwb amputation on the right side. The stump looks okay. The wound is healing. LABORATORY DATA: His blood sugars have been between 92 and 88 mg/dL. CLINICAL IMPRESSION: Diabetes mellitus type 2, uncontrolled with complications; status post sepsis, status post gangrene of the right foot, status post below-knee amputation, prostate abscess and anemia. PLAN: The plan at this time is to increase p.o. intake, rehab, PT and OT and adjust insulin dose. Thanks for referring this patient. We will be following this patient with you. Dictated By: Braxotn Chapin MD Date Dictated: 09/03/2022 15:03:13 PATIENT NAME: KARMA ROWLAND Date Transcribed: 09/03/2022 15:14:17 /[facility] Receipt ID: [id number] Authenticated by Logan Chapin MD On 09/03/2022 08:07:20 PM at 0807 PATIENT NAME: KARMA ROWLAND [facility] 2022-09-03 14:45:00 [facility] ([facility]) Hospitalist Consultation REPORT#:[id number] REPORT STATUS: Signed DATE:09/03/22 TIME: 1445 PATIENT: KARMA ROWLAND UNIT #: [id number] ROOM/BED: [place] [address] : [birth year] AGE: 56 SEX: M ATTEND: Mj Vences MD ADM AUTHOR: Tessie Junior * ALL edits or amendments must be made on the electronic/computer document * History of Present Illness Reason for consult: Medical Management Chief complaint: admitted to rehab PCP: PCP: No Primary or Family Physician HPI: Janett us 56 yo male with long h/o DM, [...] the DKA and blood sugars much improved. Patient 's right foot was not salvageable and patient [...] is wearing a [employer]or-[employer] orthotic for right knee/BKA protection. Prior to [...] 13 years old or older: Never Smoker Other social history: Local resident, Good social support Allergies: Coded Allergies: No Known Allergies [...] rate rhythm Respiratory: aerating well, clear to auscultation Abdomen: non-tender, normal bowel sounds Genitourinary: no flank pain Extremities: moves all, normal capillary refill Musculoskeletal: normal inspection, painless range of motion Neuro/QUANTITATIVE ANALYST: alert, oriented X 3, normal speech Considered stroke alert: no Skin: dry, intact Psychiatry: normal affect, normal judgment/insight Diagnosis, Assessment Plan Consultants: cardiology, endocrinology, hospitalist, infectious disease, podiatry Free Text DxA P Notes Free Text DxA P Notes: ASSESSMENT: Gangrene of right foot s/p Below- knee amputation Prostate abscess MRSA bacteremia Hx of Diabetes, Diabetic neuropathy PLANS: Continue with ABx as dierected- currently on Daptomycin and Cefepime Continue with PT/OT per primary Fall precautions Nutritional support pain control Tight glycemia control- endocrine on board, insulin adjustments Wound care as directed Hepain PPX Continue with supportive / care at 2154 RPT #:[id number] END OF REPORT [facility] 2022-09-03 14:27:00 [facility] ([facility]) Infectious Dis. Progress Note REPORT#:[id number] REPORT STATUS: Signed DATE:09/03/22 TIME: 1427 PATIENT: KARMA ROWLAND UNIT #: [id number] ROOM/BED: [place] [address] : [birth year] AGE: 56 SEX: M ATTEND: Mj Vences MD ADM AUTHOR: Merry Wolff MD * ALL edits or amendments must be made on the electronic/computer document * Subjective HPI: PT is a [...] blood sugars are on the low side today Patient reports: No: cough, diarrhea, fever, headache, nausea, shortness of breath, vomiting. Portions of this section were scribed by Jill Quintero on 09/03/22 at 1501 Objective General VS/I O: Vital Signs Date Temp Pulse Resp B/P B/P Mean Pulse Ox FiO2 09/02-09/03 97.3-99.1 81-87 16-17 116-164/50-85 72.3-111.0 94-100 Last [...] awake, oriented Head/Eyes: atraumatic, clear cornea, EOMI, normal conjunctiva/sclera, normal eyelids/periorb, normocephalic, PERRL ENT: moist mucosal membranes, normal dentition Neck: full range of motion Cardiovascular: normal heart sounds, regular rate rhythm Respiratory: clear to auscultation, aerating well Abdomen: non-tender, normal bowel sounds, soft Extremities: moves all, right BKA Left foot wound +dressing in place Neuro/QUANTITATIVE ANALYST: alert, oriented X 3 Skin: dry, intact [...] % (Auto) (14.0 - 32.0 %) 15.1 [place] % (Auto) (4.8 - 9.0 %) 6.8 Eos % (Auto) (0.3 - 3.7 %) 2.3 Baso % (Auto) (0.0 - 2.0 %) 0.3 Neut # (Auto) (2.0 - 7.6 x10 3/uL) 6.51 Lymph # (Auto) (1.0 - 3.8 x10 3/uL) 1.31 [place] # (Auto) (0.1 - 0.8 x10 3/uL) [...] Microbiology Date/Time Procedure - Status Source Growth 09/039 MRSA DNA Surveillance Screen - COMP NASAL [...] % (Auto) (14.0 - 32.0 %) 15.1 [place] % (Auto) (4.8 - 9.0 %) 6.8 Eos % (Auto) (0.3 - 3.7 %) 2.3 Baso % (Auto) (0.0 - 2.0 %) 0.3 Neut # (Auto) (2.0 - 7.6 x10 3/uL) 6.51 Lymph # (Auto) (1.0 - 3.8 x10 3/uL) 1.31 [place] # (Auto) (0.1 - 0.8 x10 3/uL) [...] (0.0 - 0.1 0.00 x10 3/uL) 09/02 09/02 09/02 09/02 1929 1908 [...] sets. -Repeat blood cultures 08/21/2022 are already positive for MRSA in 2 out of 2 sets, suggesting persistent high-grade bacteremia. -TTE 08/18/2022 negative for any obvious vegetations. -08/28 neg -JIMENA 09/02 pending results *Prostatic abscess -s/p transrectal aspiration and unroofing on 08/26 -cx MRSA, citrobacter (r-cefazolin) Enterococcus raffinosus (S-amp,pcn, vancomycin), bacteriodes *ERIKA *Hyponatremia *Diabetic neuropathy *Diabetes mellitus type 2 *Hypertension 09/03 Follow JIMENA results; may need 6 weeks of daptomycin if (+)VE -cont on Cefepime and Daptomycin til 09/24 for treatment of Prostate abscess -follow esr and crp Consultants: cardiology, endocrinology, hospitalist, infectious disease, podiatry Portions of this section were scribed by Jill Quintero on 09/03/22 at 1501 at 2013 RPT #:[id number] END OF REPORT [facility] 2022-09-03 11:38:00 [facility] ([facility]) Pharmacy Prog.Note-Vancomycin REPORT#:[id number] REPORT STATUS: Signed DATE:09/03/22 TIME: 1138 PATIENT: KARMA ROWLAND UNIT #: [id number] ROOM/BED: [place] [address] : 61 AGE: 56 SEX: M ATTEND: Mj Vences MD ADM AUTHOR: Wilian Jasso [facility] * ALL edits or amendments must be made on the electronic/computer document * Vancomycin Vancomycin Medication Therapy Goal: AUC 400-600 mg*hr/L Indication for treatment: OM and MRSA Bacteremia Current therapy: vanc 1 g IV Q24H VS and I/O: Vital Signs Date Temp Pulse Resp B/P B/P Mean Pulse Ox FiO2 09/02-09/03 97.3-99.1 81-87 16-17 116-164/50-85 72.3-111.0 94-100 72 hours ending at 0700 09/03 0700 09/02 1900 09/02 19009/01 07 1900 Intake 240 Total Output 850 Total Balance -610 Intake, 240 Oral Number 0 Incontinen t Voids Number 1 Voids Output, 850 Urine 72 Hour I O Total 09/03 0709/01 07 Intake Total 240 Output Total 850 Balance -610 Labs: Laboratory Test : 09/03 414 Chemistry BUN (7 - 18 mg/dL) 22 H Creatinine (0.6 - 1.3 mg/dL) 1.1 Hematology WBC (4.5 - 11.0 x10 3/uL) 8.7 Microbiology: 09/03 414 NASAL: MRSA DNA Surveillance Screen - RECD Treatment plan: consult, cont current regimen/dose Regimen: PT is a 56yr old male [...] intramuscular compartments of the foot, compatible with gas- forming infection. Patient's [...] with merrem/ daptomycin. ID adjusting regimen to cefepime/vancomycin. Pharmacy consulted to dose vancomycin. Consulting provider: Dr. Wolff Indication: MRSA Bacteremia Goal: AUC 400-600 mcg*hr/ml A/P 09/03: * Pt transferred [facility] to [facility] rehab. D/w RN to enter weight. Weight 70 kg. * Afebrile, WBC 8.7 * BUN 22, SCr 1.1, eCrCl 66 ml/min, UOP 1650 ml/24hrs * Micro: 08/26 prostate abscess: C farmeri, MRSA, E raffinosus. 08/18, 08/19, 08/21 , [...] on 09/04 at 1430. AUC Goal 400-600 mcg*hr/ml. * Pharmacy will monitor and adjust dose as needed. Thanks for the consult. at 1159 RPT #:[id number] END OF REPORT [facility] 2022-09-03 11:21:00 [facility] Cardiology Progress Note REPORT#:[id number] REPORT STATUS: Signed DATE:09/03/22 TIME: 1120 PATIENT: KARMA ROWLAND UNIT #: [id number] ROOM/BED: [place] [address] : 61 AGE: 56 SEX: M ATTEND: Mj Vences MD ADM AUTHOR: Rohit Benitez LOG ROPER * ALL edits or amendments must be made on the electronic/computer document * Rohit Benitez 09/03/22 1121: Subjective Chief complaint: weakness Free Text Subj Notes Free Text Subj Notes: Patient seen and evaluated. Transferred to rehab. Chart [...] 10 ML Insulin Glargine (Lantus/Semglee) 15 UNIT BEDTIME SUBQ (CKD) [...] regular rate and rhythm, no ectopy, no gallop Respiratory: clear to auscultation, no distress Abdomen: soft, non-tender Lower extremity: LE assessment: normal temperature, no edema Neuro/QUANTITATIVE ANALYST: alert, oriented X 3 Wound/incision: Location: right bka Psychiatry: normal affect, normal judgment/insight, normal mood Results Findings/Data: Laboratory Tests 09/03 [...] % (Auto) (14.0 - 32.0 %) 15.1 [place] % (Auto) (4.8 - 9.0 %) 6.8 Eos % (Auto) (0.3 - 3.7 %) 2.3 Baso % (Auto) (0.0 - 2.0 %) 0.3 Neut # (Auto) (2.0 - 7.6 x10 3/uL) 6.51 Lymph # (Auto) (1.0 - 3.8 x10 3/uL) 1.31 [place] # (Auto) (0.1 - 0.8 x10 3/uL) [...] 1.89 Diagnosis, Assessment Plan Consultants: cardiology, endocrinology, hospitalist, infectious disease, podiatry Free [...] rehab for physical therapy. Known cardiac history of hypertension and hyperlipidemia. Vital signs stable. Echocardiogram with normal LVEF, grade 1 diastolic dysfunction, mildly dilated LA, and no significant valvular abnormalities. Continue to monitor blood pressure trend. Continue wound care and IV antibiotic therapy. Continue PT/OT. Supportive care. Plan of care discussed with patient, RN and Dr. Parham. Napoleon Parham 09/06/22 1632: Diagnosis, Assessment Plan Additional comments: Patient was seen and examined at bedside, agree with above assessment and plan as documented by nurse practitioner. Will follow. at 2019 at 1637 RPT #:[id number] END OF REPORT [facility] 2022-09-03 11:21:00 [facility] ([facility]) Pain Management Consult Note REPORT#:[id number] REPORT STATUS: Signed DATE:09/03/22 TIME: 1121 PATIENT: KARMA ROWLAND UNIT #: [id number] ROOM/BED: [place] [address] : 63 AGE: 56 SEX: M ATTEND: Mj Vences MD ADM AUTHOR: Ben Klein PA * ALL edits or amendments must be made on the electronic/computer document * Ben Klein 09/03/22 1121: History of Present Illness Primary Care Physician: Attending: Mj Vences MD HPI: Patient is a 56-year-old male who was initially admitted in for AMS from DKA, and right foot infection. Review of Systems Additional notes: 14 point ROS undertaken unremarkable except as noted in HPI, past medical and surgical history History Past History Medications: Home Medications: Medication Dose/Rte/Freq Days Qty Entered Last Max Daily Dose Reviewed HEPARIN SODIUM,PORCINE 5,000 UNIT SUBQ 14 42 09/01/22 (HEPARIN SOD 1ML) Q8HR 1008 Strength: [...] LISPRO (HumaLOG) 5 UNIT SUBQ AC 14 09/01/22 Strength: 100 UNIT/ML VIAL 1010 VANCOMYCIN (VANCOCIN) [...] 1330 CKD (DEXTROSE 10% IN IV 10/01 132 WATER) Dextrose/Water 250 ML ASDIR PRN 09/01 [...] Documented: Result Date Time Pulse Ox 100 04/12 0701 B/P 118/65 04/12 0701 B/P Mean 82.6 09/03 700 Temp 36.3 [...] % (Auto) (14.0 - 32.0 %) 15.1 [place] % (Auto) (4.8 - 9.0 %) 6.8 Eos % (Auto) (0.3 - 3.7 %) 2.3 Baso % (Auto) (0.0 - 2.0 %) 0.3 Neut # (Auto) (2.0 - 7.6 x10 3/uL) 6.51 Lymph # (Auto) (1.0 - 3.8 x10 3/uL) 1.31 [place] # (Auto) (0.1 - 0.8 x10 3/uL) [...] Date/Time Procedure - Status Source Growth 09/03 5725 MRSA DNA Surveillance Screen - RECD NASAL Diagnosis, Assessment Plan Free text A P: A/P: Patient is a 56 year old male who presents with: Past Medical History: Prostate abscess, right foot foot and ankle gangrene, diabetes, hypertension, hyperlipidemia Past Surgical History: TURP, right BKA Family History: Noncontributory Social History: Denies tobacco, alcohol, or drug use Allergies: NKDA Recent prostate abscess -Status post TURP with unroofing of abscess -IV antibiotics with vancomycin until 5-3-2023 Acute postoperative pain, right foot and ankle gangrene, requiring BKA -Patient is at risk for further amputations or loss of limb due to comorbid conditions -Status post right BKA 08/28/2022 -Tylenol 650 mg p.o. every 6 hours as needed pain scale 1 3 -[place] 10/325 1 tablet p.o. every 4 hours as needed pain scale 4 10 -Dilaudid 1 mg IV every 6 hours as needed pain scale 7 10, second line therapy- patient will require close monitoring while using IV narcotics for any deleterious effect -Lidoderm patch to left ankle daily -IV antibiotics with vancomycin until 09-24-2022 -Local wound care Uncontrolled diabetes, diabetes with complications, recent DKA -Hemoglobin A1c 13.4 -Recent right foot and ankle gangrene -Insulin sliding scale, FSBS, good glycemic control Hypertension -We will monitor hypertension and tachycardia due to [...] therapy. Patient will require monitoring while utilize narcotic medications [...] whom agrees. Thank you for the consultation. [place] ORCHESTRA LEADER: -database searched, no information found Kingsley Ng 09/21/22 1855: Attestations Physician Attestation Agree w/findings plan: The patient was seen and examined by Ben Klein. I personally developed the care plan, which was continued by the mid-level provider. I was immediately available. at 2048 at 6635 RPT #:[id number] END OF REPORT [facility] 2022-09-03 08:22:00 [facility] ([facility]) Rehab Indiv Overall POC REPORT#:[id number] REPORT STATUS: Signed DATE:09/03/22 TIME: 821 PATIENT: KARMA ROWLAND UNIT #: [id number] ROOM/BED: [place] [address] : 63 AGE: 56 SEX: M ATTEND: Mj Vences MD ADM AUTHOR: Mj Vences MD * ALL edits or amendments must be made on the electronic/computer document * Individualized Overall POC HPI Impairment group: amputation of limb NOTE Document ONLY ONE Impairment Group Amputation of limb: unilateral lower limb (R BKA) Etiologic diagnosis: Gas gangrene of right foot [...] mobility, balance, gait, and endurance Medical prognosis: good Medical prognosis details: pt motivation, family/caregiver support, cognition, D /C plan Expected course of Tx: -PLOF: Independent with transfers and gait -Amputee rehab program -Comprehensive inpatient rehabilitation with physical, occupational and speech therapy 3 hours a day for 5 to 6 days per week. -15/12 rehabilitation physician supervision. -15/12 rehabilitation nursing care. -Case management for safe discharge planning. -Rehab MD to monitor comorbidities and functional progress. -Decubitus prevention -DVT prophylaxis-subcu heparin -Strict fall and safety precautions -Work on bed mobility, transfer training, ADLs, pre-gait and gait exercises -Increase endurance and strength -Monitor pain with therapies -OOB to chair -Monitor p.o. intake and nutrition -Glycemic control, blood sugars improved as per endocrinology -Continue antibiotics per ID -Endocrinology, ID, podiatry, cardiology, IM, pain consulted -Continue wound care, NWB RLE -Amputee rehabilitation -Advance therapies as tolerated Functional Expected Course Functional expected course: The data set between the solid lines has been imported from multidisciplinary team documentation: __ ANTICIPATED SERVICES [...] Med cond/safety concern object discharge goal: CARE [place] 50 feet Independent (6) with two turns discharge goal: CARE [place] 150 Independent (6) feet discharge goal: CARE [...] function goal: PATIENT WILL REMAIN CONTINENT OF BOWEL Bladder function goal: PATIENT WILL REGAIN BLADDER CONTROL _ ELOS Attestation: Based upon the [...] of care. Complex acute rehab needs: Custom therapy tx plan, Mgt of complex Co-morb, Med adjustment/mgmt., New medical diagnosis, Postsurgery req mgt/care, Nutritional compromise, Hospitalist consult, VTE Risk at 0545 RPT #:[id number] END OF REPORT [facility] 2022-09-03 04:56:00 [facility] ([facility]) Rehab History Physical REPORT#:[id number] REPORT STATUS: Signed DATE:09/03/22 TIME: 0456 PATIENT: KARMA ROWLAND UNIT #: [id number] ROOM/BED: [place] [address] : 63 AGE: 56 SEX: M ATTEND: Mj Vences MD ADM AUTHOR: Guero Candelaria * ALL edits or amendments must be made on the electronic/computer document * See Addendum Guero Candelaria 09/03/22 [...] is wearing a nestor-tech orthotic for right knee/BKA protection. Prior to [...] Amputation of limb: unilateral lower limb (R BKA) Etiologic diagnosis: Gas gangrene of right foot and ankle History Additional medical history: DM 2 since age 33 DM neuropathy HTN hyperlipidemia Additional surgical history: as above Additional family history: reviewed and non contributory Alcohol use: Denies EtOH use Drug use: Denies recreational drugs Smoking status for patients 13 years old or older: Never Smoker Other social history: Local resident, Good social support Medications: Home Medications: HEPARIN SODIUM,PORCINE (HEPARIN SOD 1ML) 5,000 UNIT SUBQ [...] clear bilaterally Abdomen: bowel sounds present, non-distended, soft Skin: no rash, R BKA wrapped with kerlix and JOAN. L ankle/foot wrapped with kerlix Musculoskeletal - general: Musculoskeletal - general: BUE 5/5, LLE 4/5, R hip 3- Neuro/QUANTITATIVE ANALYST: alert, oriented X 3, CNII-XII intact Results [...] % (Auto) (14.0 - 32.0 %) 15.1 [place] % (Auto) (4.8 - 9.0 %) 6.8 Eos % (Auto) (0.3 - 3.7 %) 2.3 Baso % (Auto) (0.0 - 2.0 %) 0.3 Neut # (Auto) (2.0 - 7.6 x10 3/uL) 6.51 Lymph # (Auto) (1.0 - 3.8 x10 3/uL) 1.31 [place] # (Auto) (0.1 - 0.8 x10 3/uL) [...] 3/uL) 0.00 Diagnosis, Assessment Plan Diagnosis, Assessment Plan Problem List/A P: 1. Below-knee amputation of right lower extremity 2. Postoperative pain 3. Impaired mobility 4. Acute anemia 5. MRSA bacteremia 6. Cellulitis of foot, right 7. ERIKA (acute kidney injury) 8. Hyperglycemia 9. 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 Leroy Significant impairment in self-care, ADLs and functional mobility Impaired mobility and gait Postoperative pain Diabetic polyneuropathy DKA, DM 2, poorly controlled, A1c greater than 14 PAD MRSA bacteremia/sepsis-treated on acute ERIKA Severe hyponatremia-resolved HTN Acute on chronic anemia requiring multiple transfusions Left calf hematoma Edema and clinical arthritis [...] planning. -Rehab MD to monitor comorbidities and functional progress. -Decubitus prevention -DVT prophylaxis -Strict fall and safety precautions -Work on bed mobility, transfer training, ADLs, pre-gait and gait exercises -Increase endurance and strength -Monitor pain with therapies -OOB to chair -Monitor p.o. intake and nutrition -Continue antibiotics per ID -Tight glucose control -Endocrinology, ID, podiatry, cardiology, IM consulted -Consult pain management -Continue wound care -Advance therapies as tolerated Total time 65 minutes greater than 50% of the time spent examining patient, discussing inpatient rehab requirements, plan of care, goals, therapies, labs, medications. All questions answered Review of comorbidities: Postoperative anemia, ERIKA, DM, HTN, diabetic neuropathy, HLD Compare to PAS: POST ADMISSION PHYSICIAN EVALUATION ASSESSMENT: 1. Comparison of findings with the preadmission assessment are compatible with the post admission physician evaluation. 2. Review of the patient's prior and current [...] MD only Complex acute rehab needs: Custom therapy tx [...] Active Consultants: cardiology, endocrinology, hospitalist, infectious disease, podiatry Plan discussed with: patient, [...] preadmission screen. Complex acute rehab needs: Custom therapy tx plan, Mgt of complex Co-morb, Med adjustment/mgmt., New medical diagnosis, Postsurgery req mgt/care, Nutritional compromise, Hospitalist consult, VTE Risk Attestations Physician Attestation Agree w/findings plan: Patient seen and examined. Agree with the findings and plan as documented by DAVID Tran at 0822 at 1047 Addendum 1: 09/03/22 0826 by Mj Vences MD Correction: Impairment group: amputation of limb NOTE Document ONLY ONE Impairment Group Amputation of limb: unilateral lower limb (R BKA) Etiologic diagnosis: Gas gangrene of right foot and ankle S/P R BKA at 0826 RPT #:[id number] END OF REPORT [facility] 2022-09-02 15:11:00 [facility] Endocrinology Progress Note REPORT#:[id number] REPORT STATUS: Signed DATE:09/02/22 TIME: 1511 PATIENT: KARMA ROWLAND UNIT #: [id number] ROOM/BED: [place] [id number] : 61 AGE: 56 SEX: M ATTEND: Wilebrt Ramires MD ADM AUTHOR: Braxton Chapin MD * ALL edits or amendments must be made on the electronic/computer document * Subjective Patient reports: no complaints [...] CHLORIDE) 10 ML Miscellaneous Information (VANCOMYCIN PHARMACY TO DOSE) 1 [...] 5000 UNITS/ML) 5,000 UNIT Q8HR SUBQ Physical Exam General appearance: alert, [...] (8.0 - 10.5 mg/dL) 7.4 L 09/01 1704 Chemistry POC Glucose (70 - 110 [...] % (Auto) (14.0 - 32.0 %) 16.8 [place] % (Auto) (4.8 - 9.0 %) 4.8 Eos % (Auto) (0.3 - 3.7 %) 1.6 Baso % (Auto) (0.0 - 2.0 %) 0.2 Neut # (Auto) (2.0 - 7.6 x10 3/uL) 6.63 Lymph # (Auto) (1.0 - 3.8 x10 3/uL) 1.46 [place] # (Auto) (0.1 - 0.8 x10 3/uL) [...] 110 MG/DL) 109 Laboratory Tests: 08/30 1218 0827 0545 2010 Chemistry Sodium (134 - 147 [...] (Auto) (14.0 - 32.0 %) 13.4 L [place] % (Auto) (4.8 - 9.0 %) 6.3 Eos % (Auto) (0.3 - 3.7 %) 0.8 Baso % (Auto) (0.0 - 2.0 %) 0.2 Neut # (Auto) (2.0 - 7.6 x10 3/uL) 9.96 H Lymph # (Auto) (1.0 - 3.8 x10 3/uL) 1.69 [place] # (Auto) (0.1 - 0.8 x10 3/uL) [...] 08/29 08/29 08/29 08/29 1655 1041 0912 0837 0518 Chemistry POC Glucose (70 - 110 MG/DL) [...] (Auto) (14.0 - 32.0 %) 10.0 L [place] % (Auto) (4.8 - 9.0 %) 5.6 Eos % (Auto) (0.3 - 3.7 %) 0.5 Baso % (Auto) (0.0 - 2.0 %) 0.1 Neut # (Auto) (2.0 - 7.6 x10 3/uL) 11.78 H Lymph # (Auto) (1.0 - 3.8 x10 3/uL) 1.42 [place] # (Auto) (0.1 - 0.8 x10 3/uL) [...] (Auto) (14.0 - 32.0 %) 8.2 L [place] % (Auto) (4.8 - 9.0 %) 4.1 L Eos % (Auto) (0.3 - 3.7 %) 0.4 Baso % (Auto) (0.0 - 2.0 %) 0.1 Neut # (Auto) (2.0 - 7.6 x10 3/uL) 11.92 H Lymph # (Auto) (1.0 - 3.8 x10 3/uL) 1.13 [place] # (Auto) (0.1 - 0.8 x10 3/uL) [...] Report Impression - Status: SIGNED Entered: 08/28/2022 0942 IMPRESSION: 1. No evidence of venous thrombosis involving left lower extremity. 2. Approximately 8 x 2 x 1.3 cm complex fluid collection along the left upper calf probably representing a small hematoma. Impression By: [email or web address] - Roger Parra M.D. RADIOLOGY - XR FLUOROSCOPY 0-60 MIN 08/28 [...] (Auto) (14.0 - 32.0 %) 7.0 L [place] % (Auto) (4.8 - 9.0 %) 3.3 L Eos % (Auto) (0.3 - 3.7 %) 0.3 Baso % (Auto) (0.0 - 2.0 %) 0.1 Neut # (Auto) (2.0 - 7.6 x10 3/uL) 14.14 H Lymph # (Auto) (1.0 - 3.8 x10 3/uL) 1.11 [place] # (Auto) (0.1 - 0.8 x10 3/uL) [...] (Auto) (14.0 - 32.0 %) 7.4 L [place] % (Auto) (4.8 - 9.0 %) 3.9 L Eos % (Auto) (0.3 - 3.7 %) 0.5 Baso % (Auto) (0.0 - 2.0 %) 0.1 Neut # (Auto) (2.0 - 7.6 x10 3/uL) 15.49 H Lymph # (Auto) (1.0 - 3.8 x10 3/uL) 1.31 [place] # (Auto) (0.1 - 0.8 x10 3/uL) [...] pH (5.0 - 7.0) 5.0 Ur Specific [place] (1.005 - 1.030) 1.012 Urine Protein (NEGATIVE) [...] (Auto) (14.0 - 32.0 %) 8.1 L [place] % (Auto) (4.8 - 9.0 %) 4.3 L Eos % (Auto) (0.3 - 3.7 %) 0.5 Baso % (Auto) (0.0 - 2.0 %) 0.1 Neut # (Auto) (2.0 - 7.6 x10 3/uL) 15.44 H Lymph # (Auto) (1.0 - 3.8 x10 3/uL) 1.45 [place] # (Auto) (0.1 - 0.8 x10 3/uL) [...] (Auto) (14.0 - 32.0 %) 4.8 L [place] % (Auto) (4.8 - 9.0 %) 2.9 L Eos % (Auto) (0.3 - 3.7 %) 0.0 L Baso % (Auto) (0.0 - 2.0 %) 0.2 Neut # (Auto) (2.0 - 7.6 x10 3/uL) 19.90 H Lymph # (Auto) (1.0 - 3.8 x10 3/uL) 1.10 [place] # (Auto) (0.1 - 0.8 x10 3/uL) [...] %) 21.8 L 08/193 2130 2014 172 1652 Chemistry Sodium (134 - [...] (Auto) (14.0 - 32.0 %) 3.8 L [place] % (Auto) (4.8 - 9.0 %) 3.7 L Eos % (Auto) (0.3 - 3.7 %) 0.0 L Baso % (Auto) (0.0 - 2.0 %) 0.3 Neut # (Auto) (2.0 - 7.6 x10 3/uL) 17.97 H Lymph # (Auto) (1.0 - 3.8 x10 3/uL) 0.76 L [place] # (Auto) (0.1 - 0.8 x10 3/uL) [...] pH (5.0 - 7.0) 5.0 Ur Specific [place] (1.005 - 1.030) 1.013 Urine Protein (NEGATIVE) [...] 08/19 08/19 08/19 08/19 0805 0737 0737 5809 Chemistry Sodium (134 - 147 mEq/L) 130 [...] (Auto) (14.0 - 32.0 %) 4.3 L [place] % (Auto) (4.8 - 9.0 %) 3.1 L Eos % (Auto) (0.3 - 3.7 %) 0.0 L Baso % (Auto) (0.0 - 2.0 %) 0.3 Neut # (Auto) (2.0 - 7.6 x10 3/uL) 19.17 H Lymph # (Auto) (1.0 - 3.8 x10 3/uL) 0.91 L [place] # (Auto) (0.1 - 0.8 x10 3/uL) [...] RES ABSCESS Recent Impressions: ULTRASOUND - DUP [employer] 08/19 0950 Report Impression - Status: [...] MRI is more sensitive for detecting osteomyelitis. Impression By: Ankur Ladd M.D. CAT SCAN - CT ABD PELVIS W/CONT 08/18 0339 Report Impression - Status: SIGNED Entered: 08/18/2022 0546 IMPRESSION: 3.3 cm hypodensity in the left posterior prostate or seminal vesicle. This could represent an abscess. Contrast-enhanced MRI of the pelvis would be helpful for further evaluation. No acute intra-abdominal findings otherwise. Impression By: [...] 1. 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 2. DKA 3. Cellulitis and gangrene of the right foot. Status post BKA 4. Sepsis 5. Altered mental status 6. High LFTs Blood sugar 88-162 mg/dL. HbA1c 13.4% Adjust insulin dose. Wound care and IV antibiotics. S/P wound debridement. at 1513 RPT #:[id number] END OF REPORT [facility] 2022-09-02 14:20:00 [facility] Hospitalist Progress Note REPORT#:[id number] REPORT STATUS: Signed DATE:09/02/22 TIME: 1420 PATIENT: KARMA ROWLAND UNIT #: [id number] ROOM/BED: [place] [id number] : 61 AGE: 56 SEX: M ATTEND: Wilbert Ramires MD ADM AUTHOR: Tessie Junior * ALL edits or amendments must be made on the electronic/computer document * Subjective Chief complaint: AMS and [...] 09/02 0100 82 10 151/70 100 95 04/11 0000 88 11 147/73 104 94 04/10 [...] CHLORIDE) 10 ML Miscellaneous Information (VANCOMYCIN PHARMACY TO DOSE) 1 [...] 5000 UNITS/ML) 5,000 UNIT Q8HR SUBQ Physical Exam Head/Eyes: normocephalic ENT: moist mucosal membranes Neck: no JVD Cardiovascular: regular rate rhythm, no heave Respiratory: aerating well, clear to auscultation, symmetric expansion, no distress Abdomen: non-tender, normal bowel sounds, soft, no distention Genitourinary: no bladder distention Extremities: R foot in dressing Neuro/QUANTITATIVE ANALYST: alert, oriented X 3, normal speech Considered stroke alert: no Skin: no rash Psychiatry: normal affect, normal judgment/insight, normal mood Results Findings/Data: Laboratory Tests 09/02 [...] poorly controlled severe gas gangrene, right foot/necrotizing fascitis - s/p BKA MRSA bacteremia ERIKA severe hyponatremia likely due to combination of severe hyperglycemia and dehydration from DKA sepsis due to foot infection DM neuropathy HTN anemia, acute due to blood loss left calf hematoma prostatic abscess with Citrobacter and enterococcus Plans: - admit to ICU - continue IV fluids aggressively - monitor lytes and AG - IV insulin drip for now until gap closes - endo eval - keep on Vancomycin and Zosyn - podiatry eval - d.w Nuvia Hernandez - likely will need debridement - [...] - will likely need wound vac and usp IV antibiotic therapy - d/w at bedside [...] as per ID Updated Urology on MRI results, Dr. Du will review images and discuss with family for possible prostate/seminal vesicle abscess Cont wound care as per Podiatry, may have debridement today BP and BS well controlled K+ high, repeat level Hgb 7.3 stable Discussed with at bedside 08/26/2022 - hgb low. will transfuse 2 units - d.w Dr. Jeffrey - patient has lost so much tissues [...] Noted hemoglobin low at 6.8 will transfuse monitor PRBC Potassium was high as well give Kayexalate Recheck lab work later today discussed with nurse. If stable overall in the next 24 hours can be transferred/downgraded to regular floor. DM control. 09/01/22 VSS on RA labs pending- hyperkalemia yesterday -s/p kayexalate X1 Continue with Vanc and Cefepine per ID Needs JIMENA prior to discharge Cardiology on board. Approved to rehab, can transfer after JIMENA and BMP 09/02/22 JIMENA today to r/o endocarditis, awaiting results- if (+), will need abx for 6 weeks endocarditis Continue with Vanc and Cefepine per ID, - through 09/24/22 PICC line pending Wound care as directed Glycemia control- Endo on board repeat AM labs C/w PT/OT plan to transfer to [facility] this afternoon at 1759 RPT #:[id number] END OF REPORT [facility] 2022-09-02 12:26:00 [facility] ([facility]) Podiatry Progress Note REPORT#:[id number] REPORT STATUS: Signed DATE:09/02/22 TIME: 1226 PATIENT: KARMA ROWLAND UNIT #: [id number] ROOM/BED: [place] [id number] : 61 AGE: 56 SEX: M ATTEND: Wilbert Ramires MD ADM AUTHOR: Liam Jeffrey DPM * ALL edits or amendments must be made on the electronic/computer document * Subjective Chief complaint: seen at bedside,. family memebers next to him denies having any pain foot covered and protected and offloaded drainage noted serosang. increased warmth Patient reports: no cough, no dizziness, no fever, no heartburn Comments: also discussed with dr. Leroy pt getting EEG today Objective General VS: Last Documented: Result Date Time Pulse Ox 95 09/02 09 B/P 152/70 09/03 903 Pulse 81 09/03 903 B/P Mean 0.0 09/02 0520 O2 Delivery Room air 09/02 05 Temp 36.4 09/02 0520 Resp 17 09/02 0520 O2 Flow Rate 7 08/28 1222 PATIENT WEIGHT: Weight (lb): 154 Weight (oz): 5.18 Weight (kg): 70.000 Medications: Active Meds + DC'd Last 24 Hrs Fentanyl Citrate (SUBLIMAZE) 0 .STK-MED ONE .ROUTE [...] CHLORIDE) 10 ML Miscellaneous Information (VANCOMYCIN PHARMACY TO DOSE) 1 [...] 5000 UNITS/ML) 5,000 UNIT Q8HR SUBQ I O: 24 hour I O ending at 0700: 0411 0700 04 1900 Intake Total 240 Output Total 750 1325 Balance -750 -1085 Intake, Oral 240 Output, Urine 750 1325 Dietitian nutrition assessment The data set between the solid lines has been imported from the dietitian's assessment. BMI Calculated: 24.9 Nutrition related diagnosis: Overweight Nutrition diagnosis details: BMI 25-29.9 Nutrition problem: Increased nutrient needs Nutrition etiology: metabolic demand of wound , healing Nutrition signs and symptoms: recent BKA with need [...] pulse assess: Nonpalpable R posterior tibialis, Nonpalpable L posterior tibialis, [...] culture: MRSA blood cultures: MRSA dc lavage joan wrap compression left ankle venous u/s left no dvt at 2109 RPT #:[id number] END OF REPORT [facility] 2022-09-02 10:35:00 [facility] Cardiology Progress Note REPORT#:[id number] REPORT STATUS: Signed DATE:09/02/22 TIME: 1035 PATIENT: KARMA ROWLAND UNIT #: [id number] ROOM/BED: [place] [id number] : 61 AGE: 56 SEX: M ATTEND: Wilbert Ramires MD ADM AUTHOR: Rohit Benitez LOG ROPER * ALL edits or amendments must be made on the electronic/computer document * Rohit Benitez 09/02/22 1035: Subjective [...] 108 09/01 1800 89 15 171/82 118 10 1745 86 14 156/75 108 09/01 1500 [...] CHLORIDE) 10 ML Miscellaneous Information (VANCOMYCIN PHARMACY TO DOSE) 1 [...] 5000 UNITS/ML) 5,000 UNIT Q8HR SUBQ Physical Exam General appearance: alert, awake, oriented Neck: no bruit/NL carotids, no JVD Cardiovascular: CV assessment: abnormal S1/S2, regular rate and rhythm, no ectopy Respiratory: clear to auscultation, no distress Lower extremity: LE assessment: edema Neuro/QUANTITATIVE ANALYST: alert, oriented X 3 Considered stroke alert: no Wound/incision: Location: right bka Psychiatry: normal affect, normal judgment/insight, normal mood Results Findings/Data: Laboratory Tests 09/02 [...] elevated blood sugar. Diagnosed with DKA and sepsis. 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 Known cardiac history of hypertension and hyperlipidemia. Denies prior history of CAD, CHF or arrhythmia. EKG abnormal, NSR with anterior infarct. Vital signs stable. No prior cardiac work-up. -Check echocardiogram -Monitor telemetry for arrhythmia -Monitor [...] Cleared from cardiac standpoint to proceed with planned [...] RN and Dr. Parham. Napoleon Parham 09/06/22 1631: Diagnosis, Assessment Plan Additional comments: Patient was seen and examined at bedside, agree with above assessment and plan as documented by nurse practitioner with modifications. JIMENA negative for vegetation. Discussed with primary team and ID service. at 2023 at 1637 RPT #:[id number] END OF REPORT [facility] 2022-09-02 06:18:00 [facility] Rehab Progress Note REPORT#:[id number] REPORT STATUS: Signed DATE:09/02/22 TIME: 617 PATIENT: KARMA ROWLAND UNIT #: [id number] ROOM/BED: [place] [id number] : 61 AGE: 56 SEX: M ATTEND: Wilbert Ramires MD ADM AUTHOR: Mj Vences MD * ALL edits or amendments must be made on the electronic/computer document * Subjective Chief complaint: Rehab [id number] Doing well In bed, NAD Patient going for JIMENA Urine is clear in room Denies DICKENS/N/V/D/CP 14 systems reviewed and neg. except that above. Objective General VS: Vital Signs: Date Time Temp Pulse Resp B/P B/P Pulse O2 O2 Flow FiO2 Mean Ox Delivery Rate 09/02 0520 97.5 79 17 132/65 0.0 98 Room air 04 0500 80 131/63 90 97 / 0400 81 10 128/61 88 97 / 0300 84 129/64 90 94 /11 0200 83 125/58 84 89 09/02 0100 82 10 151/70 100 95 04/11 0000 88 11 147/73 104 94 04/10 [...] CHLORIDE) 10 ML Miscellaneous Information (VANCOMYCIN PHARMACY TO DOSE) 1 [...] 5000 UNITS/ML) 5,000 UNIT Q8HR SUBQ Physical Exam General appearance: alert, awake, no acute distress Psych: alert, normal affect, oriented x 3 HEENT: anicteric, mucosal membranes moist, pupils reactive to light, sclera clear Neck: non-tender, supple, no JVD Cardiovascular: regular rate rhythm, S1/S2 Respiratory: aerating well, clear bilaterally, clear to auscultation Abdomen: bowel sounds present, non-distended, soft Skin: R BKA wrapped with kerlix and JOAN, removed incision healing well, some small blisters on distal limb, no erythema. DSGings replaced. Left foot/ankle wrapped Musculoskeletal - general: Musculoskeletal - general: MMT BUE 5/5, LLE 4/5, R hip 3-, R knee in [employer] orthotic Neuro/QUANTITATIVE ANALYST: alert, oriented X 3, CNII-XII intact Results [...] Impression By: [email or web address] - Roger Parra M.D. RADIOLOGY - XR FLUOROSCOPY 0-60 MIN 08/28 1101 Report Impression - Status: SIGNED Entered: 08/28/2022 1120 IMPRESSION: Fluoroscopy dosage documentation. See also separate procedure notes. Impression By: [email or web address] - Bishop Atkins M.D. 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 Leroy Significant impairment in self-care, ADLs and functional mobility Impaired mobility and gait Postoperative pain Diabetic polyneuropathy DKA, DM 2, poorly controlled Minimal PAD MRSA bacteremia/sepsis ERIKA Severe hyponatremia-resolved HTN Acute on chronic anemia requiring multiple transfusions Left calf hematoma Edema and clinical arthritis left ankle Prostatic abscess 08/26: S/p transrectal ultrasound aspiration of abscess and transurethral resection of prostate and unroofing of abscess Echo: EF 55-59%, grade 1 diastolic dysfunction Hypoalbuminemia Plan: -Continue PT and OT -Case management for safe discharge planning. -Decubitus prevention -Nutrition, monitor the patient's p.o. intake, albumin 1.3, check prealbumin, dietary consultation, protein supplements promote healing -Strict fall and safety precaution -DVT prophylaxis-subcutaneous heparin -GI prophylaxis on Pepcid -Early mobilization-OOB to chair -Work on bed mobility, transfer training, ADLs, pre-gait and gait exercises as tolerable. -Increase endurance and strength -Pain management-patient requiring IV Dilaudid -Glycemic control as per endo-blood sugars much improved -Monitor labs-WBC trending down, hemoglobin 9.1, s/p PRBC transfusions, sodium normal, creatinine 1.2, potassium elevating given Kayexalate, awaiting potassium level -Has received multiple units of PRBCs-serial H/H -ID requesting JIMENA to rule out endocarditis, continue ABX -Patient on CBI and urine is clear-DC CBI if okay with -Edema and clinical arthritis left ankle-Lidoderm patch and Joan wrap -NWB right BKA, continue [employer] orthotic-incision healing well, some blisters on distal limb, no erythema or signs of infection, dressings reapplied -Right BKA amputee rehab -Excellent candidate for inpatient rehab -Patient and would like to stay here at [facility] rehab. -Patient approved for IRF. -Awaiting results of [...] goals, therapies, progress, medications, labs. All questions answered Orders: Procedure Date/time Status CBC W/AUTO DIFF 09/02 622 Active Rehab attestation: . at 1118 RPT #:[id number] END OF REPORT [facility] 2022-09-01 18:12:00 [facility] ([facility]) Endocrinology Progress Note REPORT#:[id number] REPORT STATUS: Signed DATE:09/01/22 TIME: 1811 PATIENT: KARMA ROWLAND UNIT #: [id number] ROOM/BED: [place] [id number] : 61 AGE: 56 SEX: M ATTEND: Wilbert Ramires MD ADM AUTHOR: Braxton Chapin MD * ALL edits or amendments must be made on the electronic/computer document * Subjective Patient reports: no complaints [...] CHLORIDE) 10 ML Miscellaneous Information (VANCOMYCIN PHARMACY TO DOSE) 1 [...] 5000 UNITS/ML) 5,000 UNIT Q8HR SUBQ Physical Exam General appearance: alert, [...] % (Auto) (14.0 - 32.0 %) 16.8 [place] % (Auto) (4.8 - 9.0 %) 4.8 Eos % (Auto) (0.3 - 3.7 %) 1.6 Baso % (Auto) (0.0 - 2.0 %) 0.2 Neut # (Auto) (2.0 - 7.6 x10 3/uL) 6.63 Lymph # (Auto) (1.0 - 3.8 x10 3/uL) 1.46 [place] # (Auto) (0.1 - 0.8 x10 3/uL) [...] 110 MG/DL) 109 Laboratory Tests: 08/30 1218 3675 0744 2010 Chemistry Sodium (134 - 147 mEq/L) [...] (Auto) (14.0 - 32.0 %) 13.4 L [place] % (Auto) (4.8 - 9.0 %) 6.3 Eos % (Auto) (0.3 - 3.7 %) 0.8 Baso % (Auto) (0.0 - 2.0 %) 0.2 Neut # (Auto) (2.0 - 7.6 x10 3/uL) 9.96 H Lymph # (Auto) (1.0 - 3.8 x10 3/uL) 1.69 [place] # (Auto) (0.1 - 0.8 x10 3/uL) [...] (Auto) (14.0 - 32.0 %) 10.0 L [place] % (Auto) (4.8 - 9.0 %) 5.6 Eos % (Auto) (0.3 - 3.7 %) 0.5 Baso % (Auto) (0.0 - 2.0 %) 0.1 Neut # (Auto) (2.0 - 7.6 x10 3/uL) 11.78 H Lymph # (Auto) (1.0 - 3.8 x10 3/uL) 1.42 [place] # (Auto) (0.1 - 0.8 x10 3/uL) [...] 103 206 H 185 H 180 H 04/06 04/08/27 1825 Chemistry Sodium (134 - 147 mEq/L) [...] (Auto) (14.0 - 32.0 %) 8.2 L [place] % (Auto) (4.8 - 9.0 %) 4.1 L Eos % (Auto) (0.3 - 3.7 %) 0.4 Baso % (Auto) (0.0 - 2.0 %) 0.1 Neut # (Auto) (2.0 - 7.6 x10 3/uL) 11.92 H Lymph # (Auto) (1.0 - 3.8 x10 3/uL) 1.13 [place] # (Auto) (0.1 - 0.8 x10 3/uL) [...] Impression By: [email or web address] - Roger Parra M.D. RADIOLOGY - XR FLUOROSCOPY 0-60 MIN 08/28 1101 Report Impression - Status: SIGNED Entered: 08/28/2022 1120 IMPRESSION: Fluoroscopy dosage documentation. See also separate procedure notes. Impression By: [email or web address] - Bishop Atkins M.D. Laboratory Tests: 08/27 08/27 08/27 08/27 1728 1147 9470 2107 Chemistry Sodium (134 - 147 mEq/L) 137 [...] (Auto) (14.0 - 32.0 %) 7.0 L [place] % (Auto) (4.8 - 9.0 %) 3.3 L Eos % (Auto) (0.3 - 3.7 %) 0.3 Baso % (Auto) (0.0 - 2.0 %) 0.1 Neut # (Auto) (2.0 - 7.6 x10 3/uL) 14.14 H Lymph # (Auto) (1.0 - 3.8 x10 3/uL) 1.11 [place] # (Auto) (0.1 - 0.8 x10 3/uL) [...] (Auto) (14.0 - 32.0 %) 7.4 L [place] % (Auto) (4.8 - 9.0 %) 3.9 L Eos % (Auto) (0.3 - 3.7 %) 0.5 Baso % (Auto) (0.0 - 2.0 %) 0.1 Neut # (Auto) (2.0 - 7.6 x10 3/uL) 15.49 H Lymph # (Auto) (1.0 - 3.8 x10 3/uL) 1.31 [place] # (Auto) (0.1 - 0.8 x10 3/uL) [...] pH (5.0 - 7.0) 5.0 Ur Specific [place] (1.005 - 1.030) 1.012 Urine Protein (NEGATIVE) [...] (Auto) (14.0 - 32.0 %) 8.1 L [place] % (Auto) (4.8 - 9.0 %) 4.3 L Eos % (Auto) (0.3 - 3.7 %) 0.5 Baso % (Auto) (0.0 - 2.0 %) 0.1 Neut # (Auto) (2.0 - 7.6 x10 3/uL) 15.44 H Lymph # (Auto) (1.0 - 3.8 x10 3/uL) 1.45 [place] # (Auto) (0.1 - 0.8 x10 3/uL) [...] (Auto) (14.0 - 32.0 %) 4.8 L [place] % (Auto) (4.8 - 9.0 %) 2.9 L Eos % (Auto) (0.3 - 3.7 %) 0.0 L Baso % (Auto) (0.0 - 2.0 %) 0.2 Neut # (Auto) (2.0 - 7.6 x10 3/uL) 19.90 H Lymph # (Auto) (1.0 - 3.8 x10 3/uL) 1.10 [place] # (Auto) (0.1 - 0.8 x10 3/uL) [...] (Auto) (14.0 - 32.0 %) 3.8 L [place] % (Auto) (4.8 - 9.0 %) 3.7 L Eos % (Auto) (0.3 - 3.7 %) 0.0 L Baso % (Auto) (0.0 - 2.0 %) 0.3 Neut # (Auto) (2.0 - 7.6 x10 3/uL) 17.97 H Lymph # (Auto) (1.0 - 3.8 x10 3/uL) 0.76 L [place] # (Auto) (0.1 - 0.8 x10 3/uL) [...] pH (5.0 - 7.0) 5.0 Ur Specific [place] (1.005 - 1.030) 1.013 Urine Protein (NEGATIVE) [...] (Auto) (14.0 - 32.0 %) 4.3 L [place] % (Auto) (4.8 - 9.0 %) 3.1 L Eos % (Auto) (0.3 - 3.7 %) 0.0 L Baso % (Auto) (0.0 - 2.0 %) 0.3 Neut # (Auto) (2.0 - 7.6 x10 3/uL) 19.17 H Lymph # (Auto) (1.0 - 3.8 x10 3/uL) 0.91 L [place] # (Auto) (0.1 - 0.8 x10 3/uL) [...] right lower extremity arterial system. Impression By: [email or web address] - Abraham Ross M.D. Laboratory Tests: 08/18 [...] MRI is more sensitive for detecting osteomyelitis. Impression By: Ankur Ladd M.D. CAT SCAN - CT ABD PELVIS W/CONT 08/18 0339 Report Impression - Status: SIGNED Entered: 08/18/2022 0546 IMPRESSION: 3.3 cm hypodensity in the left posterior prostate or seminal vesicle. This could represent an abscess. Contrast-enhanced MRI of the pelvis would be helpful for further evaluation. No acute intra-abdominal findings otherwise. Impression By: [...] 1. 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 2. DKA 3. Cellulitis and gangrene of the right foot. 4. Sepsis 5. Altered mental status 6. High LFTs Blood sugar 145-118 mg/dL. HbA1c 13.4% Adjust insulin dose. Wound care and IV antibiotics. S/P wound debridement. at 1813 RPT #:[id number] END OF REPORT [facility] 2022-09-01 15:30:00 [facility]) Podiatry Progress Note REPORT#:[id number] REPORT STATUS: Signed DATE:09/01/22 TIME: 1530 PATIENT: KARMA ROWLAND UNIT #: [id number] ROOM/BED: [place] [id number] : 61 AGE: 56 SEX: M ATTEND: Wilbert Ramires MD ADM AUTHOR: Liam Jeffrey DPM * ALL edits or amendments must be made on the electronic/computer document * Subjective Chief complaint: seen at bedside,. family memebers next to him denies having any pain foot covered and protected and offloaded drainage noted serosang. increased warmth Patient reports: no confusion, no diarrhea, no fatigue, [...] CHLORIDE) 10 ML Miscellaneous Information (VANCOMYCIN PHARMACY TO DOSE) 1 [...] 5000 UNITS/ML) 5,000 UNIT Q8HR SUBQ I O: 24 hour I O ending at 0700: 04/10 0700 04/09 1900 Intake Total 400 Output Total Balance 400 Intake, IV 50 Intake, 350 Packed Cells Number 2 Bowel Movements Dietitian nutrition assessment The data set between the solid lines has been imported from the dietitian's assessment. BMI Calculated: 24.9 Nutrition related diagnosis: Overweight Nutrition diagnosis details: BMI 25-29.9 Nutrition problem: Increased nutrient needs Nutrition etiology: metabolic demand of wound , healing Nutrition signs and symptoms: recent BKA with need for , arginine and glutamine Nutrition prescription: 1) Recommend Cardiac ADA diet with 5 CHO/meal. 2) Supplement with Chinedu BID. Dietitian name: Judith Smith, DIET Assessment completed: 08/28/22 Physical Exam General appearance: alert, awake, oriented, pleasant, conversational Wound/incision: Location: Right foot s/p BKA DP and PT pulses very weak left foot. Sensation is greatly decreased on the left foot. Left foot has no ulcers but has OA changes at ankle with some chronic edema. LE vascular pulse assess: Nonpalpable R posterior tibialis, Nonpalpable L posterior tibialis, [...] culture: MRSA blood cultures: MRSA dc lavage joan wrap compression left ankle venous u/s left no dvt at 1532 RPT #:[id number] END OF REPORT [facility] 2022-09-01 12:15:00 [facility] ([facility]) Infectious Dis. Progress Note REPORT#:[id number] REPORT STATUS: Signed DATE:09/01/22 TIME: 1215 PATIENT: KARMA ROWLAND UNIT #: [id number] ROOM/BED: [place] [id number] : 63 AGE: 56 SEX: M ATTEND: Wilbert Ramires MD ADM AUTHOR: Merry Wolff MD * ALL edits or amendments must be made on the electronic/computer document * Subjective Chief complaint: Follow-up on MRSA bacteremia, right lower extremity necrotizing soft tissue infection. HPI: PT is [...] aspiration and unroofing of prostate abscess 08/26, aspiration cx growing GNR, pt is afebrile, WBC down to 15.9 from 17.7, 08/28 Pt had right BKA today, afebrile, WBC 13.8 from 15.9 4/ pt doing well, awake, alert, afebrile, family at bedside, states he only has a little bit of pain 09/01 is in IMCU, doing well, afebrile Patient reports: No: cough, diarrhea, fever, headache, nausea, shortness [...] 09/01 1105 O2 Delivery Room air 08/31 1928 O2 Flow Rate 7 08/28 1222 Vital [...] 04/ 2000 92 14 167/77 111 99 / [...] 08/18-08/25 Antibiotic: Vancomycin Start Date: 08/18-08/25 Antibiotic: Teflaro Start Date:08/25-08/27 Antibiotic: daptomycin Start Date:08/25 Antibiotic: Merrem Start Date:08/27 Physical Exam General appearance: alert, awake, oriented Wound/incision: Location: right BKA Head/Eyes: atraumatic, normocephalic Neck: supple/no meningismus, no JVD Cardiovascular: normal heart sounds, regular rate rhythm, no murmur Respiratory: clear to auscultation, aerating well, symmetric expansion Abdomen: non-tender, soft, no distention Genitourinary: urinary catheter ( on CBI) Extremities: edema, right BKA Neuro/QUANTITATIVE ANALYST: alert, 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 Considered stroke alert: no Skin: lesions, no rash Psychiatry: normal affect, normal mood Results Findings/Data: Laboratory Tests 09/01 09/01 09/01 08/31 08/31 1104 0704 0345 1916 1618 Chemistry POC Glucose (70 - 110 MG/DL) 118 H 145 H 176 H 163 H Total Creatine Kinase (46 - 171 79 Units/L) 08/31 1240 Chemistry POC Glucose (70 - [...] 79 Serology SARS-CoV-2 Ag (Rapid) (Negative) Negative 08/31 [...] % (Auto) (14.0 - 32.0 %) 16.8 [place] % (Auto) (4.8 - 9.0 %) 4.8 Eos % (Auto) (0.3 - 3.7 %) 1.6 Baso % (Auto) (0.0 - 2.0 %) 0.2 Neut # (Auto) (2.0 - 7.6 x10 3/uL) 6.63 Lymph # (Auto) (1.0 - 3.8 x10 3/uL) 1.46 [place] # (Auto) (0.1 - 0.8 x10 3/uL) [...] (0.0 - 0.1 x10 3/uL) 0.00 Medication(s) Ordered: Anti-Infective Agents Sig/Jan Start time [...] sets. -Repeat blood cultures 08/21/2022 are already positive for MRSA in 2 out of 2 sets, suggesting persistent high-grade bacteremia. -TTE 08/18/2022 negative for any obvious vegetations. -08/28 neg *Severe sepsis due to above *Right lower extremity necrotizing fasciitis -MRI of foot (+)Ve for osteomyelitis -s/p debridement on 08/19: cx grew MRSA *DKA *Prostatic abscess -s/p transrectal aspiration and unroofing on 08/26 -cx MRSA, citrobacter (r-cefazolin) Enterococcus raffinosus (S-amp,pcn, vancomycin), bacteriodes *ERIKA *Hyponatremia *Diabetic neuropathy *Diabetes mellitus type 2 *Hypertension Plan: 08/25 -Discussed the possibility of amputation with patient and family at bedside -Recommend JIMENA. -Repeat blood cultures x2 again today. -Continue to repeat serial blood cultures till bacteremia clears. -D/C clindamycin and vancomycin. -start on DAptomycin and Teflaro -check urine cx Discussed with Dr. Du about MRI report 08/26 -plan for transrectal aspiration of abscess today -repeat blood cx are still (+)Ve; will repeat blood cx tomorrow -cont on daptomycin and Teflaro day #2 -Pt needs a JIMENA r/o endocarditis as pt has high grade persistent bacteremia -plan for Right BKA on 08/28 08/27 -s/p transrectal aspiration and unroofing of abscess; cx GNR; will follow - repeat blood cx today --cont on daptomycin and Teflaro day #3 -Pt needs a JIMENA r/o endocarditis as pt has high grade persistent bacteremia -plan for Right BKA on 08/28 08/28 s/p right BKA -repeat blood cx sent today -cont on Daptomycin day #4 -NEeds a JIMENA r/o endocarditis -prostate abscess: Coag (+)Ve staph, citrobacter and Enterococcus; on Merrem day #2 08/29 follow repeat blood cx from 08/28; pt need atleast 14 days from neg bloodcx needs a JIMENA r/o endocarditis; if (+)Ve need 6 weeks , if not able to do willneed 4 weeks -prostate abscess cx MRSA,citrobacter, Enterococcus; cont on Merrem and Daptomycin until cx are final day#3 out of 2-3 weeks 09/01 - blood cx from 08/28 neg -pending a JIMENA; discussed with [facility]Ardiology about doing a JIMENA; if (+)(Ve will need abx for 6 weeks endocarditis -change Merrem to Cefepime and Daptomycin to Vancomycin ; will need 28 days for treatment for prostate abscess til / Portions of this section were scribed by Jill Quintero on 09/01/22 at 1215 at 0859 RPT #:[id number] END OF REPORT [facility] 2022-09-01 11:35:00 [facility] ([facility]) Pharmacy Prog.Note-Vancomycin REPORT#:[id number] REPORT STATUS: Signed DATE:09/01/22 TIME: 1135 PATIENT: KARMA ROWLAND UNIT #: [id number] ROOM/BED: [place] [id number] : 61 AGE: 56 SEX: M ATTEND: Wilbert Ramires MD ADM AUTHOR: Willie Rivera [facility] * ALL edits or amendments must be made on the electronic/computer document * See Addendum Vancomycin Vancomycin Medication Therapy Goal: AUC 400-600 mg*hr/L Indication for treatment: Empiric (now confirmed foot infection and bacteremia) Site of infection: known Current therapy: CEFEPIME AND VANCOMYCIN Day of therapy: 1 Weight: Actual weight (kg): 69.9 VS and I/O: Vital Signs Date Temp Pulse Resp B/P B/P Mean Pulse Ox FiO2 08/29-09/01 97.5-98.6 78-99 10-22 110-195/56-88 0.0-124 90-100 72 hours ending at 0700 09/01 19008/31 1900 Intake 400 270.00 1020.00 Total Output 797 169 8341 Total Balance 400 -500 -480.00 -3955.00 Intake, IV 50 30.00 80.00 Intake, 240 240 Oral Intake, 400 Oral Supplement Intake, 300 Other Intake, 350 Packed Cells Number 2 2 1 Bowel Movements Output, 0 Drainage Output, 348 231 1973 Urine 72 Hour I O Total 09/01 0708/31 Intake Total 400 1290.00 Output Total 500 5725 Balance 400 -500 -4435.00 Labs: Laboratory Test : 08/31 08/30 0642 0545 Chemistry BUN (7 - 18 mg/dL) 29 H 33 H Creatinine (0.6 - 1.3 mg/dL) 1.2 1.3 Hematology WBC (4.5 - 11.0 x10 3/uL) 8.7 12.6 H Drug admin history: Lab Lab Level SCr Info Distribution District Supervisor Med Dose Interaction/Dialysis Date/Time Date/Time Notes: Treatment [...] intramuscular compartments of the foot, compatible with gas -forming infection. Patient's blood cultures have come back [...] with merrem/ daptomycin. ID adjusting regimen to cefepime/vancomycin. Pharmacy consulted to dose vancomycin. Consulting provider: Dr. Wolff Indication: bacteremia Goal: AUC 400-600 AP: afebrile, WBC 8.7 (08/31), BUN 29, SCr 1.2, eCrCl 66 ml/min. UOP 1325 ml/24hrs. Micro: 08/26 prostate abscess: C farmeri, MRSA, E raffinosus. 08/18, 08/19, 08/21, 08/22, 08/25 blood MRSRA. 08/28 blood NGTD. Imaging: JIMENA planned. Regimen: Day 1. Patient received daptomycin on 08/31. Will skip loading dose of vancomycin and initiate maintenance dose at the time next daptomycin dose was due. Initiate 1gm vancomycin iv q24h. Monitoring: May take longer to achieve steady state since no load given. Plan for peak and trough after 4th dose for AUC calculations. Goal 400-600. Pharmacy will monitor and adjust dose as needed. Thanks for the consult. at 1142 Addendum 1: 09/02/22 0840 by Willie Rivera [facility] afebrile, no CBC drawn today , SCR 1.2, eCrCl 61 ml/min. UOP 2075 ml/24hrs. Day 2. Initiated on 1gm vancomycin iv q24h. Trough prior to 4th dose. Possible transition to AUC if renal continues to be stable. at 0891 RPT #:[id number] END OF REPORT [facility] 2022-09-01 11:08:00 [facility] Cardiology Progress Note REPORT#:[id number] REPORT STATUS: Signed DATE:09/01/22 TIME: 1108 PATIENT: KARMA ROWLAND UNIT #: [id number] [place]ED[place] [facility] : 61 AGE: 56 SEX: M ATTEND: Wilbert Ramires MD ADM AUTHOR: Rohit Benitez [facility] * ALL edits or amendments must be made on the electronic/computer document * Rohit Benitez 09/01/22 1108: Subjective Chief complaint: foot infection Free Text Subj Notes Free Text Subj Notes: Patient seen and evaluated. Chart reviewed. No new [...] CHLORIDE) 10 ML Miscellaneous Information (VANCOMYCIN PHARMACY TO DOSE) 1 [...] 5000 UNITS/ML) 5,000 UNIT Q8HR SUBQ Physical Exam General appearance: alert, awake, oriented Neck: no bruit/NL carotids, no JVD Cardiovascular: CV assessment: abnormal S1/S2, regular rate and rhythm, no ectopy Respiratory: clear to auscultation, no distress Lower extremity: LE assessment: edema Neuro/QUANTITATIVE ANALYST: alert, oriented X 3 Considered stroke alert: no Wound/incision: Location: right bka Psychiatry: normal affect, normal judgment/insight, normal mood Results Findings/Data: Laboratory Tests 09/01 [...] elevated blood sugar. Diagnosed with DKA and sepsis. 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 Known cardiac history of hypertension and hyperlipidemia. Denies prior history of CAD, CHF or arrhythmia. EKG abnormal, NSR with anterior infarct. Vital signs stable. No prior cardiac work-up. -Check echocardiogram -Monitor telemetry for arrhythmia -Monitor [...] Cleared from cardiac standpoint to proceed with planned [...] RN and Dr. Parham. Napoleon Parham 09/06/22 1631: Diagnosis, Assessment Plan Additional comments: Patient was seen and examined at bedside, agree with above assessment and plan as documented by nurse practitioner with modifications. We will proceed with JIMENA tomorrow. Continue supportive care. Will follow. at 1811 at 1637 RPT #:[id number] END OF REPORT [facility] 2022-09-01 10:17:00 [facility] Hospitalist Progress Note REPORT#:[id number] REPORT STATUS: Signed DATE:09/01/22 TIME: 1017 PATIENT: KARMA ROWLAND UNIT #: [id number] ROOM/BED: [place] [id number] : 61 AGE: 56 SEX: M ATTEND: Wilbert Ramires MD ADM AUTHOR: Tessie Junior * ALL edits or amendments must be made on the electronic/computer document * Subjective Chief complaint: AMS and right foot infection. s/p extensive debridement. s/p BKA. pain controlled Objective General VS/I O: Vital Signs: Date Time Temp Pulse Resp B/P B/P Pulse O2 O2 Flow FiO2 Mean Ox Delivery Rate 09/01 1105 97.9 86 15 141/67 0.0 99 09/01 0826 80 94 09/01 0800 84 12 153/72 104 99 04/10 0708 98.4 83 12 129/63 0.0 99 04/ 0700 84 15 129/63 90 98 04/10 [...] 04/09 2300 87 13 134/64 92 98 08/31 2200 85 10 132/63 90 97 04/ 2100 139/64 92 08/31 2059 89 10 [...] CHLORIDE) 10 ML Miscellaneous Information (VANCOMYCIN PHARMACY TO DOSE) 1 [...] 5000 UNITS/ML) 5,000 UNIT Q8HR SUBQ Physical Exam Head/Eyes: normocephalic ENT: moist mucosal membranes Neck: no JVD Cardiovascular: regular rate rhythm, no heave Respiratory: aerating well, clear to auscultation, symmetric expansion, no distress Abdomen: non-tender, normal bowel sounds, soft, no distention Genitourinary: no bladder distention Extremities: R foot in dressing Neuro/QUANTITATIVE ANALYST: alert, oriented X 3, normal speech Considered stroke alert: no Skin: no rash Psychiatry: normal affect, normal judgment/insight, normal mood Results Findings/Data: Laboratory Tests 09/01 [...] poorly controlled severe gas gangrene, right foot/necrotizing fascitis - s/p BKA MRSA bacteremia ERIKA severe hyponatremia likely due to combination of severe hyperglycemia and dehydration from DKA sepsis due to foot infection DM neuropathy HTN anemia, acute due to blood loss left calf hematoma prostatic abscess with Citrobacter and enterococcus Plans: - admit to ICU - continue IV fluids aggressively - monitor lytes and AG - IV insulin drip for now until gap closes - endo eval - keep on Vancomycin and Zosyn - podiatry eval - d.w Nuvia Hernandez - likely will need debridement - [...] - will likely need wound vac and usp IV antibiotic therapy - d/w at bedside [...] as per ID Updated Urology on MRI results, Dr. Du will review images and discuss with family for possible prostate/seminal vesicle abscess Cont wound care as per Podiatry, may have debridement today BP and BS well controlled K+ high, repeat level Hgb 7.3 stable Discussed with at bedside 08/26/2022 - hgb low. will transfuse 2 units - d.w Dr. Jeffrey - patient has lost so much tissues [...] Noted hemoglobin low at 6.8 will transfuse monitor PRBC Potassium was high as well give Kayexalate Recheck lab work later today discussed with nurse. If stable overall in the next 24 hours can be transferred/downgraded to regular floor. DM control. 09/01/22 VSS on RA labs pending- hyperkalemia yesterday -s/p kayexalate X1 Continue with Vanc and Cefepine per ID Needs JIMENA prior to discharge Cardiology on board. Approved to rehab, can transfer after JIMENA and BMP at 1543 RPT #:[id number] END OF REPORT [facility] 2022-09-01 10:14:00 [facility] Hospitalist Discharge Summary REPORT#:[id number] REPORT STATUS: Signed DATE:09/01/22 TIME: 1014 PATIENT: KARMA ROWLAND UNIT #: [id number] ROOM/BED: [place] [id number] : 61 AGE: 56 SEX: M ATTEND: Wilbert Ramires MD ADM AUTHOR: Tessie Junior * ALL edits or amendments must be made on the electronic/computer document * General Information Discharge date: 09/01/22 Discharge diagnosis: MRSA bacteremia/spesis 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 S/p surgical debridement and washout S/p Right BKA DM 2, poorly controlled Hyperkalemia Hospital course: DKA DM 2, poorly controlled severe gas gangrene, right foot/necrotizing fascitis - s/p BKA MRSA bacteremia ERIKA severe hyponatremia likely due to combination of severe hyperglycemia and dehydration from DKA sepsis due to foot infection DM neuropathy HTN anemia, acute due to blood loss left calf hematoma prostatic abscess with Citrobacter and enterococcus Plans: - admit to ICU - continue IV fluids aggressively - monitor lytes and AG - IV insulin drip for now until gap closes - endo eval - keep on Vancomycin and Zosyn - podiatry eval - d.w Nuvai Hernandez - likely will need debridement - [...] - will likely need wound vac and extermination inspector IV antibiotic therapy - d/w at bedside [...] as per ID Updated Urology on MRI results, Dr. Du will review images and discuss with family for possible prostate/seminal vesicle abscess Cont wound care as per Podiatry, may have debridement today BP and BS well controlled K+ high, repeat level Hgb 7.3 stable Discussed with at bedside 08/26/2022 - hgb low. will transfuse 2 units - d.w Dr. Jeffrey - patient has lost so much tissues [...] Noted hemoglobin low at 6.8 will transfuse monitor PRBC Potassium was high as well give Kayexalate Recheck lab work later today discussed with nurse. If stable overall in the next 24 hours can be transferred/downgraded to regular floor. DM control. Pt. condition on discharge: fair Free Text DxA P Notes Free text DxA P notes: DKA DM 2, poorly controlled severe gas gangrene, right foot/necrotizing fascitis - s/p BKA MRSA bacteremia ERIKA severe hyponatremia likely due to combination of severe hyperglycemia and dehydration from DKA sepsis due to foot infection DM neuropathy HTN anemia, acute due to blood loss left calf hematoma prostatic abscess with Citrobacter and enterococcus Plans: - admit to ICU - continue IV fluids aggressively - monitor lytes and AG - IV insulin drip for now until gap closes - endo eval - keep on Vancomycin and Zosyn - podiatry eval - d.w Nuvia Hernandez - likely will need debridement - [...] - will likely need wound vac and usp IV antibiotic therapy - d/w at bedside [...] as per ID Updated Urology on MRI results, Dr. Du will review images and discuss with family for possible prostate/seminal vesicle abscess Cont wound care as per Podiatry, may have debridement today BP and BS well controlled K+ high, repeat level Hgb 7.3 stable Discussed with at bedside 08/26/2022 - hgb low. will transfuse 2 units - d.w Dr. Jeffrey - patient has lost so much tissues [...] Noted hemoglobin low at 6.8 will transfuse monitor PRBC Potassium was high as well give Kayexalate Recheck lab work later today discussed with nurse. If stable overall in the next 24 hours can be transferred/downgraded to regular floor. DM control. Med Rec Med Rec Discharge meds: Start taking the following new medications: HEPARIN SODIUM,PORCINE (HEPARIN SOD 1ML) 5,000 UNIT/ML VIAL [...] NEEDED. as needed for N/V IF NOT ON [...] 825 Pulse 80 09/01 825 B/P 153/72 09/02 799 B/P Mean 104 09/02 799 Resp 12 09/02 799 Temp 98.4 09/01 0708 O2 Delivery Room air 08/31 192 O2 Flow Rate 7 08/28 1222 24 hour I O ending at 0700: 09/01 1900 Intake Total 400 Output Total Balance 400 Intake, IV 50 Intake, 350 Packed Cells Number 2 Bowel Movements Head/Eyes: normocephalic ENT: moist mucosal membranes Neck: no JVD Cardiovascular: regular rate rhythm, no heave Respiratory: aerating well, clear to auscultation, symmetric expansion, no distress Abdomen: non-tender, normal bowel sounds, soft, no distention Genitourinary: no bladder distention Extremities: R foot in dressing Neuro/QUANTITATIVE ANALYST: alert, oriented X 3, normal speech Considered stroke alert: no Skin: no rash Psychiatry: normal affect, normal judgment/insight, normal mood Results Findings/Data: Laboratory Tests: 09/01 09/01 09/01 08/31 08/31 0852 0704 0345 1916 1810 Chemistry POC Glucose (70 - 110 [...] Routines: None Diet: Diabetic at 1017 RPT #:[id number] END OF REPORT [facility] 2022-09-01 09:12:00 [facility]) Rehab Preadmission Screen REPORT#: REPORT STATUS: DATE:09/01/22 TIME: 911 PATIENT: KARMA ROWLAND UNIT #: ROOM: BED: : 61 AGE: 56 SEX: M ATTEND: Mj Vences MD PROJECTED ADM AUTHOR: Mj Vences MD REP SRV REP SRV TM: 0912 * ALL edits or amendments must be made on the electronic/computer document * IRF Preadmission Screen Information From CRS PAS CRS PAS documentation: The data set between the solid lines has been imported from CRS PAS documentation. PREADMISSION INFORMATION: DEMOGRAPHICS: Assessment date: 09/01/22 Assessment time: 531 Patient has an Advanced Directive: No Content of advance directive/living will/plan of care: Copy of advance directive on chart: Referring physician: DR. VENCES Primary care provider: NONE LISTED Consulting physician(s): DR. VENCES REHAB DR. RAMIRES ATTENDING DR. CURTIS MEDICAL DR. LONDON MEDICAL DR. DU MEDICAL DR. LEROY SURGICAL DR. CHAPIN MEDICAL DR. David PARHAM CARDIOGLY DR. NUVIA OSWALD SURGICAL Referral contact name: RAYSHAWN SIMPSON Referral contact number: [phone] Referring setting: Acute hospital Room number: 458 IMPAIRMENT GROUP: Impairment group: Amp bilat LE below knee Etiologic diagnosis: GAS GANGRENE RIGHT FOOT AND ANKLE REVIEW OF MED CONDITIONS: Date of onset: 08/18/22 Current surgery date and type: 08/28/22 RIGHT BELOW KNEE AMPUTATION 08/19/22 irrigation and debridement right foot Active comorbid conditions: POST OP ANEMIA, ERIKA, DM, HTN, DIABETIC NEUROPATHY, HLD Past medical and surgical history: DM 2 since age 33 DM neuropathy HTN hyperlipidemia Had major surgery within 100 days of admission: Yes Risk for medical/clinical complications: Anemia, Arrhythmia, BP fluctuation, Blood sugar fluctuation, Cardiac instability, Constipation, DVT, Depression, Electrolyte imbalance, Hypoxia, Incisional dehiscence, Infection, Injury d/t falls, Nutritional compromise, Pain, Renal insuff/failure, Skin breakdown, Respiratory insufficiency, Urinary retention Acute [...] is wearing a nestor-tech orthotic for right knee/BKA protection. [...] in 6 Wt lbs 154.000 BMI SUPPORTING DIAGNOSTICS/LABS/RADIOLOGY/CARDIO LOGY: Date: 08/31/22 08/31/22 WBC: 8.7 HGB: 9.1 [...] OF WBC'S ORGANISM CITROBACTER FARMERI, ETEROCOCCUS RAFFINOSUS, STAPH AUREUS METHICILLIN RESIST 08/25/22 URINE CONTAMINATED 08/25/22 BLOOD COAG POS STAPHYLOCCUS 08/22/22 BLOOD GRAM POS COCCI/ STAPH/METHICILLIN RESIST 08/18/22 WOUND/FOOT STAPH AUREUS/MRSA Imagin08/28/22 FLUOROSCOPY RADIATION DOSE METRICS: Fluoroscopy time (seconds): [...] the forefoot. 08/19/22 EXTREMITY ARTERIAL IMPRESSION: No sonographic evidence for flow-limiting stenosis [...] more sensitive for detecting osteomyelitis. 08/18/22 CXR IMPRESSION: Ill-defined somewhat nodular opacity measuring 3.2 [...] to person, Oriented to place, Oriented to time Patient's mood [...] Eating compensatory strategies: Medication administration: Medications whole, IV, Subcutaneous, Topicals REHAB NEEDS: Special rehabilitation needs: IV/PICC/CVC, Respiratory therapy Special rehabilitation precautions: Diet, Safety/fall, Isolation contact, Non- weight bearing RLE [...] Total assistance Independent Locomotion prior device use: None Description of prior level of locomotion: NO AD Locomotion current device: RW/FWW Locomotion current distance traveled without a rest break: NOT TESTED Description of current level of locomotion: NOT TESTED Description of expected level of locomotion: MOD IND WITH WALKER Language and Cognition: POLISH A 0 X 4 Add'l functional comment: [...] Relationship to patient: SPOUSE Phone number 1: [phone] Phone number 2: Caregiver availability: Caregiver can provide: Patient/caregiver goals/preferences: Expected discharge destination: Home Expected discharge physical layout: Onestory W/SEAT, Shower only Number of external stairs: Number of internal stairs: Railing details: Grab bars location: Barriers to discharge: Endurance Options discussed with patient: Yes Options discussed with caregiver: Yes Patient agrees with program requirements: Yes ACTIVITY TOLERANCE: Current treatment interventions: Occupational therapy, Physical therapy, Respiratory therapy Patient able to tolerate 3 hours of therapy a day: Yes Patient able to tolerate 15 hours of therapy a week: Altered therapy schedule comment: ACUTE INPATIENT REHAB PLAN: Estimated length of stay in days: 17 Anticipated services in acute inpatient rehab: Rehab nursing 15/12, fiscal services manager, group social worker, Occupational therapy, Physical therapy, Dietitian, Respiratory therapy Acute hospital documents reviewed prior to admission decision: Acute History/ Physical, Consult notes, Operative reports, Progress notes, Lab/diagnostics, Therapy notes, Vital signs, Other ancillary notes CRS ELECTRONIC SIGNATURE: NANCY #1 electronic signature: OSCAR CRUZ credentials: SELENA Date: 09/01/22 Time: 728 CRS #2 electronic signature: NANCY credentials: Date: Time: CRS #3 electronic signature: NANCY credentials: Date: Time: Provider Pre-Admit Summary Acute IP rehab admit: criteria met MD determination Based upon my evaluation and review of the supporting assessment documentation and consultation with the preadmission access clinician, I have determined, prior to admitting [...] Current surgery date and type: 08/28/22 RIGHT BELOW KNEE AMPUTATION 08/19/22 irrigation and debridement right foot Active comorbid conditions: POST OP ANEMIA, ERIKA, DM, HTN, DIABETIC NEUROPATHY, HLD Past medical and surgical history: DM 2 since age 33 DM neuropathy HTN hyperlipidemia Had major [...] Hospitalist consult, VTE Risk Acute hospital stay: [facility] care w/Acute MD, IRF consult on Acute care at 0914 RPT #:[id number] END OF REPORT [facility] 2022-09-01 06:28:00 [facility] Rehab Progress Note REPORT#:[id number] REPORT STATUS: Signed DATE:09/01/22 TIME: 627 PATIENT: KARMA ROWLAND UNIT #: [id number] ROOM/BED: [place] [id number] : 61 AGE: 56 SEX: M ATTEND: Wilbert Ramires MD ADM AUTHOR: Mj Vences MD * ALL edits or amendments must be made on the electronic/computer document * Subjective Chief complaint: Rehab [id number] Doing well In bed, NAD States pain fairly well controlled Urine is clear in room Denies DICKENS/N/V/D/CP 14 systems reviewed and neg. except that above. Objective General VS: Vital Signs: Date Time Temp Pulse Resp B/P B/P Pulse O2 O2 Flow FiO2 Mean Ox Delivery Rate 09/01 0600 81 115/59 83 99 09/01 0500 80 17 126/65 90 97 09/01 0435 98.5 79 16 126/65 85 99 04/10 0400 83 16 128/64 90 97 / 0300 86 14 126/59 85 97 / 0200 87 148/70 101 97 09/01 0100 91 12 141/67 97 97 09/01 0032 98.1 90 16 138/66 90 99 09/01 0000 88 16 138/66 95 98 04 2300 87 13 134/64 92 98 08/31 2200 85 10 132/63 90 97 08/31 2100 139/64 92 08/31 2058 89 10 96 08/31 2000 92 14 167/77 111 99 / 1929 98.3 94 16 151/69 96 100 Room air 08/31 1900 96 151/69 99 98 / 1835 97 14 180/85 122 99 08/31 1804 15 04/ 1800 95 184/86 124 99 04/ 1620 97.5 95 16 195/88 0.0 99 04/ 1435 97.9 90 14 150/70 98 04/ 1430 98.1 89 14 147/69 98 / 1425 97.8 90 15 157/83 99 04/ 1419 98.3 90 14 155/68 90 04/ 1208 98.1 91 12 145/66 0.0 98 / 0715 98.1 79 14 144/69 0.0 99 [...] 5000 UNITS/ML) 5,000 UNIT Q8HR SUBQ Physical Exam General appearance: alert, awake, no acute distress Psych: alert, normal affect, oriented x 3 HEENT: anicteric, mucosal membranes moist, pupils reactive to light, sclera clear Neck: non-tender, supple, no JVD Cardiovascular: regular rate rhythm, S1/S2 Respiratory: aerating well, clear bilaterally, clear to auscultation Abdomen: bowel sounds present, non-distended, soft Skin: R BKA wrapped with kerlix and JOAN, removed incision healing well, some small blisters on distal limb, no erythema. DSGings replaced. Left foot/ankle wrapped Musculoskeletal - general: Musculoskeletal - general: MMT BUE 5/5, LLE 4/5, R hip 3-, R knee in nestor-tech orthotic Neuro/QUANTITATIVE ANALYST: alert, oriented X 3, CNII-XII intact Results [...] % (Auto) (14.0 - 32.0 %) 16.8 [place] % (Auto) (4.8 - 9.0 %) 4.8 Eos % (Auto) (0.3 - 3.7 %) 1.6 Baso % (Auto) (0.0 - 2.0 %) 0.2 Neut # (Auto) (2.0 - 7.6 x10 3/uL) 6.63 Lymph # (Auto) (1.0 - 3.8 x10 3/uL) 1.46 [place] # (Auto) (0.1 - 0.8 x10 3/uL) [...] (0.0 - 0.1 x10 3/uL) 0.00 Radiology data: Recent Impressions: ULTRASOUND - DUP VEIN UNI/LTD 08/28 0857 Report Impression - Status: SIGNED Entered: 08/28/2022 0977 IMPRESSION: 1. No evidence of venous thrombosis involving left lower extremity. 2. Approximately 8 x 2 x 1.3 cm complex fluid collection along the left upper calf probably representing a small hematoma. Impression By: [email or web address] - Roger Parra M.D. RADIOLOGY - XR FLUOROSCOPY 0-60 MIN 08/28 1101 Report Impression - Status: SIGNED Entered: 08/28/2022 1120 IMPRESSION: Fluoroscopy dosage documentation. See also separate procedure notes. Impression By: [email or web address] - Bishop Atkins M.D. 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 Leroy Significant impairment in self-care, ADLs and functional mobility Impaired mobility and gait Postoperative pain Diabetic polyneuropathy DKA, DM 2, poorly controlled Minimal PAD MRSA bacteremia/sepsis ERIKA Severe hyponatremia-resolved HTN Acute on chronic anemia requiring multiple transfusions Left calf hematoma Edema and clinical arthritis left ankle Prostatic abscess 08/26: S/p transrectal ultrasound aspiration of abscess and transurethral resection of prostate and unroofing of abscess Echo: EF 55-59%, grade 1 diastolic dysfunction Hypoalbuminemia Plan: -Continue PT and OT -Case management for safe discharge planning. -Decubitus prevention -Nutrition, monitor the patient's p.o. intake, albumin 1.3, check prealbumin, dietary consultation, protein supplements promote healing -Strict fall and safety precaution -DVT prophylaxis-subcutaneous heparin -GI prophylaxis on Pepcid -Early mobilization-OOB to chair -Work on bed mobility, transfer training, ADLs, pre-gait and gait exercises as tolerable. -Increase endurance and strength -Pain management-patient requiring IV Dilaudid -Glycemic control as per endo-blood sugars much improved -Monitor labs-WBC trending down, hemoglobin 9.1, s/p PRBC transfusions, sodium normal, creatinine 1.2, potassium elevating given Kayexalate, awaiting potassium level -Has received multiple units of PRBCs-serial H/H -ID requesting JIMENA to rule out endocarditis, continue ABX -Patient on CBI and urine is clear-DC CBI if okay with -Edema and clinical arthritis left ankle-Lidoderm patch and Joan wrap -NWB right BKA, continue Nestor-tech orthotic-incision healing well, some blisters on distal limb, no erythema or signs of infection, dressings reapplied -Right BKA amputee rehab -Excellent candidate for inpatient rehab, admit preauthorization if okay with rehabilitation admissions. Referral to 5 E. rehab ordered. Patient and would like to stay [facility] at [facility]. -Patient approved for IRF. Patient to admit today if okay with all providers. -Urine clear-asked RN to DC CBI if okay with -Preadmission screen completed. -COVID-negative Progress: Bed Mobility - Rolling: Minimal Assistance [...] goals, therapies, progress, medications, labs. All questions answered Orders: Procedure Date/time Status EXERCISE 15 MIN 09/01 1134 Active ADL 15 MIN 09/01 1134 Active Rehab attestation: . at 1139 RPT #:[id number] END OF REPORT [facility] 2022-08-31 15:30:00 [facility] ([facility]) Endocrinology Progress Note REPORT#:[id number] REPORT STATUS: Signed DATE:08/31/22 TIME: 1530 PATIENT: KARMA ROWLAND UNIT #: [id number] ROOM/BED: [place] [id number] : 61 AGE: 56 SEX: M ATTEND: Wilbert Ramires MD ADM AUTHOR: Braxton Chapin MD * ALL edits or amendments must be made on the electronic/computer document * Subjective Patient reports: no complaints [...] 5000 UNITS/ML) 5,000 UNIT Q8HR SUBQ Physical Exam General appearance: alert, [...] % (Auto) (14.0 - 32.0 %) 16.8 [place] % (Auto) (4.8 - 9.0 %) 4.8 Eos % (Auto) (0.3 - 3.7 %) 1.6 Baso % (Auto) (0.0 - 2.0 %) 0.2 Neut # (Auto) (2.0 - 7.6 x10 3/uL) 6.63 Lymph # (Auto) (1.0 - 3.8 x10 3/uL) 1.46 [place] # (Auto) (0.1 - 0.8 x10 3/uL) [...] 08/30 08/30 08/29 1651 1218 0827 0545 2010 Chemistry Sodium (134 - 147 [...] (Auto) (14.0 - 32.0 %) 13.4 L [place] % (Auto) (4.8 - 9.0 %) 6.3 Eos % (Auto) (0.3 - 3.7 %) 0.8 Baso % (Auto) (0.0 - 2.0 %) 0.2 Neut # (Auto) (2.0 - 7.6 x10 3/uL) 9.96 H Lymph # (Auto) (1.0 - 3.8 x10 3/uL) 1.69 [place] # (Auto) (0.1 - 0.8 x10 3/uL) [...] (Auto) (14.0 - 32.0 %) 10.0 L [place] % (Auto) (4.8 - 9.0 %) 5.6 Eos % (Auto) (0.3 - 3.7 %) 0.5 Baso % (Auto) (0.0 - 2.0 %) 0.1 Neut # (Auto) (2.0 - 7.6 x10 3/uL) 11.78 H Lymph # (Auto) (1.0 - 3.8 x10 3/uL) 1.42 [place] # (Auto) (0.1 - 0.8 x10 3/uL) [...] (Auto) (14.0 - 32.0 %) 8.2 L [place] % (Auto) (4.8 - 9.0 %) 4.1 L Eos % (Auto) (0.3 - 3.7 %) 0.4 Baso % (Auto) (0.0 - 2.0 %) 0.1 Neut # (Auto) (2.0 - 7.6 x10 3/uL) 11.92 H Lymph # (Auto) (1.0 - 3.8 x10 3/uL) 1.13 [place] # (Auto) (0.1 - 0.8 x10 3/uL) [...] Impression By: [email or web address] - Roger Parra M.D. RADIOLOGY - XR FLUOROSCOPY 0-60 MIN 08/28 1101 Report Impression - Status: SIGNED Entered: 08/28/2022 1120 IMPRESSION: Fluoroscopy dosage documentation. See also separate procedure notes. Impression By: [email or web address] - Bishop Atkins M.D. Laboratory Tests: 08/27 08/27 08/27 08/27 1728 1147 0886 9990 Chemistry Sodium (134 - 147 mEq/L) 137 [...] (Auto) (14.0 - 32.0 %) 7.0 L [place] % (Auto) (4.8 - 9.0 %) 3.3 L Eos % (Auto) (0.3 - 3.7 %) 0.3 Baso % (Auto) (0.0 - 2.0 %) 0.1 Neut # (Auto) (2.0 - 7.6 x10 3/uL) 14.14 H Lymph # (Auto) (1.0 - 3.8 x10 3/uL) 1.11 [place] # (Auto) (0.1 - 0.8 x10 3/uL) [...] (Auto) (14.0 - 32.0 %) 7.4 L [place] % (Auto) (4.8 - 9.0 %) 3.9 L Eos % (Auto) (0.3 - 3.7 %) 0.5 Baso % (Auto) (0.0 - 2.0 %) 0.1 Neut # (Auto) (2.0 - 7.6 x10 3/uL) 15.49 H Lymph # (Auto) (1.0 - 3.8 x10 3/uL) 1.31 [place] # (Auto) (0.1 - 0.8 x10 3/uL) [...] pH (5.0 - 7.0) 5.0 Ur Specific [place] (1.005 - 1.030) 1.012 Urine Protein (NEGATIVE) [...] (Auto) (14.0 - 32.0 %) 8.1 L [place] % (Auto) (4.8 - 9.0 %) 4.3 L Eos % (Auto) (0.3 - 3.7 %) 0.5 Baso % (Auto) (0.0 - 2.0 %) 0.1 Neut # (Auto) (2.0 - 7.6 x10 3/uL) 15.44 H Lymph # (Auto) (1.0 - 3.8 x10 3/uL) 1.45 [place] # (Auto) (0.1 - 0.8 x10 3/uL) [...] (Auto) (14.0 - 32.0 %) 4.8 L [place] % (Auto) (4.8 - 9.0 %) 2.9 L Eos % (Auto) (0.3 - 3.7 %) 0.0 L Baso % (Auto) (0.0 - 2.0 %) 0.2 Neut # (Auto) (2.0 - 7.6 x10 3/uL) 19.90 H Lymph # (Auto) (1.0 - 3.8 x10 3/uL) 1.10 [place] # (Auto) (0.1 - 0.8 x10 3/uL) [...] (Auto) (14.0 - 32.0 %) 3.8 L [place] % (Auto) (4.8 - 9.0 %) 3.7 L Eos % (Auto) (0.3 - 3.7 %) 0.0 L Baso % (Auto) (0.0 - 2.0 %) 0.3 Neut # (Auto) (2.0 - 7.6 x10 3/uL) 17.97 H Lymph # (Auto) (1.0 - 3.8 x10 3/uL) 0.76 L [place] # (Auto) (0.1 - 0.8 x10 3/uL) [...] pH (5.0 - 7.0) 5.0 Ur Specific [place] (1.005 - 1.030) 1.013 Urine Protein (NEGATIVE) [...] (Auto) (14.0 - 32.0 %) 4.3 L [place] % (Auto) (4.8 - 9.0 %) 3.1 L Eos % (Auto) (0.3 - 3.7 %) 0.0 L Baso % (Auto) (0.0 - 2.0 %) 0.3 Neut # (Auto) (2.0 - 7.6 x10 3/uL) 19.17 H Lymph # (Auto) (1.0 - 3.8 x10 3/uL) 0.91 L [place] # (Auto) (0.1 - 0.8 x10 3/uL) [...] 1210 Wound Culture - RES ABSCESS 08/19 1209 Anaerobic Culture - RES ABSCESS 08/19 1209 Gram Stain - RES ABSCESS Recent Impressions: ULTRASOUND - OK [employer] UNI/LTD 08/19 0950 Report Impression - Status: [...] underlying process or neoplasm. Impression By: TipTPPaola Adams M.D. RADIOLOGY - XR FOOT 3 + V RT 08/18 0238 Report Impression - Status: SIGNED Entered: 08/18/2022 0358 IMPRESSION: No acute osseous findings. No convincing evidence for osteomyelitis. MRI is more sensitive for detecting osteomyelitis. Impression By: Ankur Ladd M.D. CAT SCAN - CT ABD PELVIS W/CONT 08/18 0339 Report Impression - Status: SIGNED Entered: 08/18/2022 0546 IMPRESSION: 3.3 cm hypodensity in the left posterior prostate or seminal vesicle. This could represent an abscess. Contrast-enhanced MRI of the pelvis would be helpful for further evaluation. No acute intra-abdominal findings otherwise. Impression By: [...] 1. 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 2. DKA 3. Cellulitis and gangrene of the right foot. 4. Sepsis 5. Altered mental status 6. High LFTs Blood sugar 129-76 mg/dL. HbA1c 13.4% Adjust insulin dose. Wound care and IV antibiotics. S/P wound debridement. at 1531 RPT #:[id number] END OF REPORT [facility] 2022-08-31 10:19:00 [facility] Hospitalist Progress Note REPORT#:[id number] REPORT STATUS: Signed DATE:08/31/22 TIME: 1019 PATIENT: KARMA ROWLAND UNIT #: [id number] ROOM/BED: [place] [id number] : 61 AGE: 56 SEX: M ATTEND: Wilbert Ramires MD ADM AUTHOR: Musa Enriquez MD * ALL edits or amendments must be made on the electronic/computer document * Subjective Chief complaint: AMS and [...] 98 / 0400 78 136/72 98 97 / 0300 80 14 126/63 88 97 / 0200 84 14 139/65 93 99 04/ 0100 79 15 143/65 94 98 04/ 0027 36.5 81 15 138/66 0.0 98 Room air 04/09 0000 83 10 138/66 95 98 04/ 2300 86 13 128/61 88 97 / 2200 96 130/60 86 96 / 2100 86 128/59 85 96 08/30 2000 94 19 159/77 111 98 08/30 1944 36.9 95 15 162/76 0.0 100 Room air 08/30 1900 99 19 110 99 04 1653 36.9 83 13 160/75 0.0 99 08/30 1303 88 /08 1300 91 17 154/72 104 97 08/30 1250 87 19 172/78 112 99 04/08 1200 36.8 08/30 1101 85 22 150/68 [...] 5000 UNITS/ML) 5,000 UNIT Q8HR SUBQ Physical Exam Head/Eyes: normocephalic ENT: moist mucosal membranes Neck: no JVD Cardiovascular: regular rate rhythm, no heave Respiratory: aerating well, clear to auscultation, symmetric expansion, no distress Abdomen: non-tender, normal bowel sounds, soft, no distention Genitourinary: no bladder distention Extremities: R foot in dressing Neuro/QUANTITATIVE ANALYST: alert, oriented X 3, normal speech Considered stroke alert: no Skin: no rash Psychiatry: normal affect, normal judgment/insight, normal mood Results Findings/Data: Laboratory Tests 08/31 [...] % (Auto) (14.0 - 32.0 %) 16.8 [place] % (Auto) (4.8 - 9.0 %) 4.8 Eos % (Auto) (0.3 - 3.7 %) 1.6 Baso % (Auto) (0.0 - 2.0 %) 0.2 Neut # (Auto) (2.0 - 7.6 x10 3/uL) 6.63 Lymph # (Auto) (1.0 - 3.8 x10 3/uL) 1.46 [place] # (Auto) (0.1 - 0.8 x10 3/uL) [...] poorly controlled severe gas gangrene, right foot/necrotizing fascitis - s/p BKA MRSA bacteremia ERIKA severe hyponatremia likely due to combination of severe hyperglycemia and dehydration from DKA sepsis due to foot infection DM neuropathy HTN anemia, acute due to blood loss left calf hematoma prostatic abscess with Citrobacter and enterococcus Plans: - admit to ICU - continue IV fluids aggressively - monitor lytes and AG - IV insulin drip for now until gap closes - endo eval - keep on Vancomycin and Zosyn - podiatry eval - d.w Nuvia Hernandez - likely will need debridement - [...] - will likely need wound vac and usp IV antibiotic therapy - d/w at bedside [...] as per ID Updated Urology on MRI results, Dr. Du will review images and discuss with family for possible prostate/seminal vesicle abscess Cont wound care as per Podiatry, may have debridement today BP and BS well controlled K+ high, repeat level Hgb 7.3 stable Discussed with at bedside 08/26/2022 - hgb low. will transfuse 2 units - d.w Dr. Jeffrey - patient has lost so much tissues [...] Noted hemoglobin low at 6.8 will transfuse monitor PRBC Potassium was high as well give Kayexalate Recheck lab work later today discussed with nurse. If stable overall in the next 24 hours can be transferred/downgraded to regular floor. DM control. at 1020 RPT #:[id number] END OF REPORT [facility] 2022-08-30 18:03:00 [facility] ([facility]) Endocrinology Progress Note REPORT#:[id number] REPORT STATUS: Signed DATE:08/30/22 TIME: 1802 PATIENT: KARMA ROWLAND UNIT #: [id number] ROOM/BED: [place] [id number] : 61 AGE: 56 SEX: M ATTEND: Wilbert Ramires MD ADM AUTHOR: Braxton Chapin MD * ALL edits or amendments must be made on the electronic/computer document * Subjective Patient reports: no complaints [...] (DC) Sodium Chloride (SODIUM CHLORIDE) 10 ML Meropenem [...] 5000 UNITS/ML) 5,000 UNIT Q8HR SUBQ Physical Exam General appearance: alert, awake Diagnosis, Assessment Plan Hospital course to date: Laboratory Tests: 08/30 08/30 08/30 08/30 08/29 1651 1218 0827 0545 2010 Chemistry Sodium (134 - 147 [...] (Auto) (14.0 - 32.0 %) 13.4 L [place] % (Auto) (4.8 - 9.0 %) 6.3 Eos % (Auto) (0.3 - 3.7 %) 0.8 Baso % (Auto) (0.0 - 2.0 %) 0.2 Neut # (Auto) (2.0 - 7.6 x10 3/uL) 9.96 H Lymph # (Auto) (1.0 - 3.8 x10 3/uL) 1.69 [place] # (Auto) (0.1 - 0.8 x10 3/uL) [...] (Auto) (14.0 - 32.0 %) 10.0 L [place] % (Auto) (4.8 - 9.0 %) 5.6 Eos % (Auto) (0.3 - 3.7 %) 0.5 Baso % (Auto) (0.0 - 2.0 %) 0.1 Neut # (Auto) (2.0 - 7.6 x10 3/uL) 11.78 H Lymph # (Auto) (1.0 - 3.8 x10 3/uL) 1.42 [place] # (Auto) (0.1 - 0.8 x10 3/uL) [...] (Auto) (14.0 - 32.0 %) 8.2 L [place] % (Auto) (4.8 - 9.0 %) 4.1 L Eos % (Auto) (0.3 - 3.7 %) 0.4 Baso % (Auto) (0.0 - 2.0 %) 0.1 Neut # (Auto) (2.0 - 7.6 x10 3/uL) 11.92 H Lymph # (Auto) (1.0 - 3.8 x10 3/uL) 1.13 [place] # (Auto) (0.1 - 0.8 x10 3/uL) [...] Impression By: [email or web address] - Roger Parra M.D. RADIOLOGY - XR FLUOROSCOPY 0-60 MIN 08/28 1101 Report Impression - Status: SIGNED Entered: 08/28/2022 1120 IMPRESSION: Fluoroscopy dosage documentation. See also separate procedure notes. Impression By: [email or web address] - Bishop tAkins M.D. Laboratory Tests: 08/27 08/27 08/27 08/27 1728 1147 0874 3838 Chemistry Sodium (134 - 147 mEq/L) 137 [...] (Auto) (14.0 - 32.0 %) 7.0 L [place] % (Auto) (4.8 - 9.0 %) 3.3 L Eos % (Auto) (0.3 - 3.7 %) 0.3 Baso % (Auto) (0.0 - 2.0 %) 0.1 Neut # (Auto) (2.0 - 7.6 x10 3/uL) 14.14 H Lymph # (Auto) (1.0 - 3.8 x10 3/uL) 1.11 [place] # (Auto) (0.1 - 0.8 x10 3/uL) [...] (Auto) (14.0 - 32.0 %) 7.4 L [place] % (Auto) (4.8 - 9.0 %) 3.9 L Eos % (Auto) (0.3 - 3.7 %) 0.5 Baso % (Auto) (0.0 - 2.0 %) 0.1 Neut # (Auto) (2.0 - 7.6 x10 3/uL) 15.49 H Lymph # (Auto) (1.0 - 3.8 x10 3/uL) 1.31 [place] # (Auto) (0.1 - 0.8 x10 3/uL) [...] pH (5.0 - 7.0) 5.0 Ur Specific [place] (1.005 - 1.030) 1.012 Urine Protein (NEGATIVE) [...] (Auto) (14.0 - 32.0 %) 8.1 L [place] % (Auto) (4.8 - 9.0 %) 4.3 L Eos % (Auto) (0.3 - 3.7 %) 0.5 Baso % (Auto) (0.0 - 2.0 %) 0.1 Neut # (Auto) (2.0 - 7.6 x10 3/uL) 15.44 H Lymph # (Auto) (1.0 - 3.8 x10 3/uL) 1.45 [place] # (Auto) (0.1 - 0.8 x10 3/uL) [...] 08/20 08/20 08/20 08/20 08/20 1107 0756 0689 0573 0454 Chemistry Sodium (134 - 147 mEq/L) [...] (Auto) (14.0 - 32.0 %) 4.8 L [place] % (Auto) (4.8 - 9.0 %) 2.9 L Eos % (Auto) (0.3 - 3.7 %) 0.0 L Baso % (Auto) (0.0 - 2.0 %) 0.2 Neut # (Auto) (2.0 - 7.6 x10 3/uL) 19.90 H Lymph # (Auto) (1.0 - 3.8 x10 3/uL) 1.10 [place] # (Auto) (0.1 - 0.8 x10 3/uL) [...] (Auto) (14.0 - 32.0 %) 3.8 L [place] % (Auto) (4.8 - 9.0 %) 3.7 L Eos % (Auto) (0.3 - 3.7 %) 0.0 L Baso % (Auto) (0.0 - 2.0 %) 0.3 Neut # (Auto) (2.0 - 7.6 x10 3/uL) 17.97 H Lymph # (Auto) (1.0 - 3.8 x10 3/uL) 0.76 L [place] # (Auto) (0.1 - 0.8 x10 3/uL) [...] pH (5.0 - 7.0) 5.0 Ur Specific [place] (1.005 - 1.030) 1.013 Urine Protein (NEGATIVE) [...] (Auto) (14.0 - 32.0 %) 4.3 L [place] % (Auto) (4.8 - 9.0 %) 3.1 L Eos % (Auto) (0.3 - 3.7 %) 0.0 L Baso % (Auto) (0.0 - 2.0 %) 0.3 Neut # (Auto) (2.0 - 7.6 x10 3/uL) 19.17 H Lymph # (Auto) (1.0 - 3.8 x10 3/uL) 0.91 L [place] # (Auto) (0.1 - 0.8 x10 3/uL) [...] process or neoplasm. Impression By: Mark Adams M.D. RADIOLOGY - XR FOOT 3 + V RT 08/18 0238 Report Impression - Status: SIGNED Entered: 08/18/2022 0358 IMPRESSION: No acute osseous findings. No convincing evidence for osteomyelitis. MRI is more sensitive for detecting osteomyelitis. Impression By: Ankur Ladd M.D. CAT SCAN - CT ABD PELVIS W/CONT 08/18 0339 Report Impression - Status: SIGNED Entered: 08/18/2022 0546 IMPRESSION: 3.3 cm hypodensity in the left posterior prostate or seminal vesicle. This could represent an abscess. Contrast-enhanced MRI of the pelvis would be helpful for further evaluation. No acute intra-abdominal findings otherwise. Impression By: [...] 1. 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 2. DKA 3. Cellulitis and gangrene of the right foot. 4. Sepsis 5. Altered mental status 6. High LFTs Blood sugar 65-81 mg/dL. HbA1c 13.4% White count 17.9 Sodium 121. Adjust insulin dose. Wound care and IV antibiotics. S/P wound debridement. at 1804 RPT #:[id number] END OF REPORT [facility] 2022-08-30 17:43:00 [facility] ([facility]) Orthopaedic Progress Note REPORT#:[id number] REPORT STATUS: Signed DATE:08/30/22 TIME: 1743 PATIENT: KARMA ROWLAND UNIT #: [id number] ROOM/BED: [place] [id number] : 61 AGE: 56 SEX: M ATTEND: Wilbert Ramires MD ADM AUTHOR: Nixon Leroy MD * ALL edits or amendments must be made on the electronic/computer document * Subjective Chief complaint: right foot/ankle [...] (DC) Sodium Chloride (SODIUM CHLORIDE) 10 ML Meropenem [...] 5000 UNITS/ML) 5,000 UNIT Q8HR SUBQ Physical Exam General appearance: alert, awake, oriented Lower leg-right: below knee amputation changes, staple line intact, mild bruising, stump soft and perfused. intact ROM of knee. Results Findings/data: Laboratory Tests 08/30 08/30 08/30 08/30 08/29 1651 1218 0827 0545 2010 Chemistry Sodium (134 - 147 [...] (Auto) (14.0 - 32.0 %) 13.4 L [place] % (Auto) (4.8 - 9.0 %) 6.3 Eos % (Auto) (0.3 - 3.7 %) 0.8 Baso % (Auto) (0.0 - 2.0 %) 0.2 Neut # (Auto) (2.0 - 7.6 x10 3/uL) 9.96 H Lymph # (Auto) (1.0 - 3.8 x10 3/uL) 1.69 [place] # (Auto) (0.1 - 0.8 x10 3/uL) [...] x10 3/uL) 0.00 Diagnosis, Assessment Plan Free text A P: [...] call with any questions or concerns. at 1749 RPT #:[id number] END OF REPORT [facility] 2022-08-30 11:46:00 [facility] Hospitalist Progress Note REPORT#:[id number] REPORT STATUS: Signed DATE:08/30/22 TIME: 1146 PATIENT: KARMA ROWLAND UNIT #: [id number] ROOM/BED: [place] [address] : 61 AGE: 56 SEX: M ATTEND: Wilbert Ramires MD ADM AUTHOR: Musa Enriquez MD * ALL edits or amendments must be made on the electronic/computer document * Subjective Chief complaint: AMS and [...] 1653 36.9 83 13 160/75 0.0 99 04/ 1303 88 04/ 1300 91 17 154/72 104 97 04/08 1250 87 19 172/78 112 99 04/08 1200 36.8 04/08 1101 85 22 150/68 98 99 04/08 1000 86 15 171/78 112 99 04/08 0916 84 13 151/69 99 99 04/08 0800 37.0 04/08 0756 83 124/58 83 04/08 0754 83 122/58 84 04/08 0400 36.9 04/ 0300 87 17 04/08 0200 83 17 110/56 78 04/08 0100 84 17 04/ 0025 89 17 127/58 84 99 04/08 0000 36.9 04/ 2300 80 16 98 04/ 2200 83 17 98 04/ 2100 93 21 100 24 hour I O ending at 0700: 04/ 0700 04/ 1900 Intake Total 270.00 1020.00 Output Total 750 4975 Balance -480.00 -3955.00 Intake, IV 30.00 80.00 Intake, Oral 240 240 Intake, Oral 400 Supplement Intake, Other 300 Number 2 1 Bowel Movements Output, 0 Drainage Output, Urine 750 4975 PATIENT WEIGHT: Weight (lb): 154 Weight (oz): 1.65 Weight (kg): 69.900 Medications: Active Meds + DC'd Last 24 Hrs Insulin Glargine (Lantus/Semglee) 15 UNIT BEDTIME SUBQ Insulin Human Lispro (HUMALOG) 5 UNIT AC SUBQ Lidocaine (LIDODERM) 1 PATCH DAILY TOPICAL Insulin Glargine (Lantus/Semglee) 20 UNIT BEDTIME SUBQ (DC) Hydromorphone HCl (DILAUDID) 1 MG Q3H PRN PRN IV Hydromorphone HCl (DILAUDID) 0.5 MG Q3H PRN PRN IV Cefazolin Sodium (KEFZOL OR ANCEF) 1 GM Q8H IV (DC) Sodium Chloride (SODIUM CHLORIDE) 10 ML Meropenem [...] 5000 UNITS/ML) 5,000 UNIT Q8HR SUBQ Physical Exam Head/Eyes: normocephalic ENT: moist mucosal membranes Neck: no JVD Cardiovascular: regular rate rhythm, no heave Respiratory: aerating well, clear to auscultation, symmetric expansion, no distress Abdomen: non-tender, normal bowel sounds, soft, no distention Genitourinary: no bladder distention Extremities: R foot in dressing Neuro/QUANTITATIVE ANALYST: alert, oriented X 3, normal speech Considered stroke alert: no Skin: no rash Psychiatry: normal affect, normal judgment/insight, normal mood Diagnosis, Assessment Plan Free Text DxA P Notes Free text DxA P notes: DKA DM 2, poorly controlled severe gas gangrene, right foot/necrotizing fascitis - s/p BKA MRSA bacteremia ERIKA severe hyponatremia likely due to combination of severe hyperglycemia and dehydration from DKA sepsis due to foot infection DM neuropathy HTN anemia, acute due to blood loss left calf hematoma prostatic abscess with Citrobacter and enterococcus Plans: - admit to ICU - continue IV fluids aggressively - monitor lytes and AG - IV insulin drip for now until gap closes - endo eval - keep on Vancomycin and Zosyn - podiatry eval - d.w Nuvia Hernandez - likely will need debridement - [...] - will likely need wound vac and extermination inspector IV antibiotic therapy - d/w at bedside [...] as per ID Updated Urology on MRI results, Dr. Du will review images and discuss with family for possible prostate/seminal vesicle abscess Cont wound care as per Podiatry, may have debridement today BP and BS well controlled K+ high, repeat level Hgb 7.3 stable Discussed with at bedside 08/26/2022 - hgb low. will transfuse 2 units - d.w Dr. Jeffrey - patient has lost so much tissues [...] to floor / IMCU at 2047 RPT #:[id number] END OF REPORT [facility] 2022-08-30 06:58:00 [facility] ([facility]) Rehab Progress Note REPORT#:[id number] REPORT STATUS: Signed DATE:08/30/22 TIME: 657 PATIENT: KARMA ROWLAND UNIT #: [id number] ROOM/BED: [place] [id number] : 61 AGE: 56 SEX: M ATTEND: Wilbert Ramires MD ADM AUTHOR: Guero Candelaria * ALL edits or amendments must be made on the electronic/computer document * Subjective Chief complaint: Rehab follow-up Seen in ICU Doing well Waiting on breakfast States pain fairly well controlled Denies DICKENS/N/V/D/CP 14 systems reviewed and neg. except that above. Objective General VS: Vital Signs: Date Time Temp Pulse Resp B/P B/P Pulse O2 O2 Flow FiO2 Mean Ox Delivery Rate 08/30 0400 98.4 08/30 0300 87 17 08/30 0200 83 17 110/56 78 04/ 0100 84 17 / 0025 89 17 127/58 84 99 04/08 0000 98.4 04 2300 80 16 98 04/ 2200 83 17 98 04/ 2100 93 21 100 04/07 2001 93 17 141/65 94 100 04/07 2000 98.6 04/07 1900 91 13 163/75 [...] 161/77 110 98 04/07 1112 86 98 08/29 1100 23 08/29 1000 86 13 145/68 98 98 08/29 0901 87 159/61 93 100 08/29 0900 87 21 98 08/29 0801 78 14 133/66 94 98 08/29 0800 98.2 PATIENT WEIGHT: Weight (lb): 154 [...] (DC) Sodium Chloride (SODIUM CHLORIDE) 10 ML Meropenem [...] 5000 UNITS/ML) 5,000 UNIT Q8HR SUBQ Functional Progress Functional progress: Bed [...] Precautions: In Bed, rails Up Bed Alarm Furnace Combustion Tester Light in Reach Nursing Notified Pulse OX in Place Document Pain/Education: No Functional Mob.Cmt: Pt SEEN FOR RE-EVAL AND FUNC MOBILITY. SEE RE- EVAL FOR DETAILS. Physical Exam General appearance: alert, awake, oriented, no acute distress Psych: alert, normal affect, oriented x 3 HEENT: anicteric, sclera clear Neck: supple, no JVD Cardiovascular: regular rate rhythm, S1/S2 Respiratory: aerating well, clear bilaterally, clear to auscultation Abdomen: bowel sounds present, non-distended, soft Skin: R BKA wrapped with kerlix and JOAN, Left foot/ankle wrapped Musculoskeletal - general: Musculoskeletal - general: MMT BUE 5/5, LLE 4/5, R hip 3-, R knee in nestor-tech orthotic Neuro/QUANTITATIVE ANALYST: alert, oriented X 3, CNII-XII intact Results [...] (Auto) (14.0 - 32.0 %) 13.4 L [place] % (Auto) (4.8 - 9.0 %) 6.3 Eos % (Auto) (0.3 - 3.7 %) 0.8 Baso % (Auto) (0.0 - 2.0 %) 0.2 Neut # (Auto) (2.0 - 7.6 x10 3/uL) 9.96 H Lymph # (Auto) (1.0 - 3.8 x10 3/uL) 1.69 [place] # (Auto) (0.1 - 0.8 x10 3/uL) [...] Text A P: 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 S/p surgical debridement and washout S/p right BKA Significant impairment in self-care, ADLs and functional mobility Impaired mobility and gait Postoperative pain Diabetic polyneuropathy DKA, DM 2, poorly controlled Minimal PAD MRSA bacteremia/sepsis ERIKA Severe hyponatremia-resolved HTN Acute on chronic anemia requiring multiple transfusions Left calf hematoma Edema and clinical arthritis left ankle Prostatic abscess s/p transrectal ultrasound aspiration of abscess and transurethral resection of prostate and unroofing of abscess Echo: EF 55-59%, grade 1 diastolic dysfunction Hypoalbuminemia Plan: -Continue PT and OT -Case management for safe discharge planning. -Decubitus prevention -Nutrition, monitor the patient's p.o. intake, albumin 1.3, check prealbumin, dietary consultation, protein supplements promote healing -Strict fall and safety precaution -DVT prophylaxis-subcutaneous heparin -GI prophylaxis on Pepcid -Early mobilization-OOB to chair -Work on bed mobility, transfer training, ADLs, pre-gait and gait exercises as tolerable. -Increase endurance and strength -Pain management-patient requiring IV Dilaudid -Glycemic control as per endo-blood sugars much improved -Monitor labs-WBC trending down, hemoglobin 7.1, sodium normal, creatinine 1.5 -Has received multiple units of PRBCs-check CBC in a.m. -ID requesting JIMENA to rule out endocarditis, continue ABX -Patient on CBI and urine is clear- following -Edema and clinical arthritis left ankle-Lidoderm patch and Joan wrap -NWB right BKA, continue Nestor-tech orthotic, I will examine incision on Thursday -Right BKA amputee rehab -Excellent candidate for inpatient rehab, admit preauthorization if okay with rehabilitation admissions. Referral to 5 E. rehab ordered. Patient and would like to stay here at [facility] rehab. -We will continue to monitor patients progress and make further recommendations Total time was 33 minutes > 50% with patient performing physical examination, discussing plan of care, goals, therapies, progress, medications, labs. All questions answered Rehab attestation: . at 0920 RPT #:[id number] END OF REPORT [facility] 2022-08-29 19:46:00 [facility] ([facility]) Podiatry Progress Note REPORT#:[id number] REPORT STATUS: Signed DATE:08/29/22 TIME: 1945 PATIENT: KARMA ROWLAND UNIT #: [id number] ROOM/BED: [facility] : 61 AGE: 56 SEX: M ATTEND: Wilbert Ramires MD ADM AUTHOR: Liam Jeffrey DPM * ALL edits or amendments must be made on the electronic/computer document * Subjective Chief complaint: seen at [...] 5000 UNITS/ML) 5,000 UNIT Q8HR SUBQ Physical Exam General appearance: alert, [...] (Auto) (14.0 - 32.0 %) 10.0 L [place] % (Auto) (4.8 - 9.0 %) 5.6 Eos % (Auto) (0.3 - 3.7 %) 0.5 Baso % (Auto) (0.0 - 2.0 %) 0.1 Neut # (Auto) (2.0 - 7.6 x10 3/uL) 11.78 H Lymph # (Auto) (1.0 - 3.8 x10 3/uL) 1.42 [place] # (Auto) (0.1 - 0.8 x10 3/uL) [...] 3/uL) 0.00 Diagnosis, Assessment Plan Free Text A P: Gas gangrene right foot s/p BKA Diabetes with peripheral neuropathy Minimal peripheral vascular diseese Sepsis DKA Edema and arthritis left ankle IV antibiotics Monitor leukocytosis NIAS: minimal PVD right 08/18 wound culture: MRSA (This one is not accurate, it is of skin that was intact) 08/19 OR culture: MRSA blood cultures: MRSA dc lavage joan wrap compression left ankle venous u/s left no dvt at 1948 RPT #:[id number] END OF REPORT [facility] 2022-08-29 18:05:00 [facility] ([facility]) Cardiology Progress Note REPORT#:[id number] REPORT STATUS: Signed DATE:08/29/22 TIME: 180 PATIENT: KARMA ROWLAND UNIT #: [id number] ROOM/BED: [place] [address] : 61 AGE: 56 SEX: M ATTEND: Wilbert Ramires MD ADM AUTHOR: Napoleon Parham MD * ALL edits or amendments must be made on the electronic/computer document * Subjective Chief complaint: foot infection [...] 08/29 1700 88 12 145/68 98 98 04/ 1600 98.2 04/ 1600 85 14 138/65 93 95 04/ 1500 80 12 110/64 83 98 04/ 1401 88 15 121/57 82 97 04/ 1300 93 20 166/76 109 100 04/ 1200 98.2 04/ 1200 91 14 165/81 115 98 04/07 1115 87 17 161/77 110 98 04/07 1112 86 98 04/07 1100 23 04/07 1000 86 13 145/68 98 98 04/07 0901 87 159/61 93 100 04/07 0900 87 21 98 04/07 0801 78 14 133/66 94 98 04/07 0800 98.2 04/ 0700 79 14 117/59 83 98 04/ 0600 79 10 113/57 78 97 04/ 0507 82 15 112/56 76 97 04/07 0400 98.7 04/ 0400 84 12 137/63 90 97 04/07 0300 82 12 117/57 81 97 04/07 0200 84 12 110/57 78 97 04/07 0100 82 12 112/56 78 96 04/07 0000 98.6 04/ 0000 84 11 108/55 74 97 04/06 2300 86 12 104/56 74 96 04/06 2200 88 11 111/56 78 96 04/06 2130 87 14 111/56 78 96 04/06 2100 90 18 110/57 80 96 04/ 2030 91 14 115/57 81 97 04/1999 99.5 [...] 5000 UNITS/ML) 5,000 UNIT Q8HR SUBQ Physical Exam General appearance: alert, awake, oriented Neck: no bruit/NL carotids, no JVD Cardiovascular: CV assessment: abnormal S1/S2, regular rate and rhythm, no ectopy Respiratory: clear to auscultation, no distress Lower extremity: LE assessment: edema Neuro/QUANTITATIVE ANALYST: alert, oriented X 3 Considered stroke alert: no Wound/incision: Location: right foot Psychiatry: normal affect, normal judgment/insight, normal mood Results Findings/Data: Laboratory Tests 08/29 [...] (Auto) (14.0 - 32.0 %) 10.0 L [place] % (Auto) (4.8 - 9.0 %) 5.6 Eos % (Auto) (0.3 - 3.7 %) 0.5 Baso % (Auto) (0.0 - 2.0 %) 0.1 Neut # (Auto) (2.0 - 7.6 x10 3/uL) 11.78 H Lymph # (Auto) (1.0 - 3.8 x10 3/uL) 1.42 [place] # (Auto) (0.1 - 0.8 x10 3/uL) [...] elevated blood sugar. Diagnosed with DKA and sepsis. 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 Known cardiac history of hypertension and hyperlipidemia. Denies prior history of CAD, CHF or arrhythmia. EKG abnormal, NSR with anterior infarct. Vital signs stable. No prior cardiac work-up. -Check echocardiogram -Monitor telemetry for arrhythmia -Monitor [...] Cleared from cardiac standpoint to proceed with planned [...] current management, will follow. at 1806 RPT #:[id number] END OF REPORT [facility] 2022-08-29 17:21:00 [facility] ([facility]) Endocrinology Progress Note REPORT#:[id number] REPORT STATUS: Signed DATE:08/29/22 TIME: 1721 PATIENT: KARMA ROWLAND UNIT #: [id number] ROOM/BED: [place] [address] : 61 AGE: 56 SEX: M ATTEND: Wilbert Ramires MD ADM AUTHOR: Braxton Chapin MD * ALL edits or amendments must be made on the electronic/computer document * Subjective Patient reports: no complaints [...] 10 ML Insulin Glargine (Lantus/Semglee) 15 UNIT BEDTIME SUBQ [...] 5000 UNITS/ML) 5,000 UNIT Q8HR SUBQ Physical Exam General appearance: alert, [...] (Auto) (14.0 - 32.0 %) 10.0 L [place] % (Auto) (4.8 - 9.0 %) 5.6 Eos % (Auto) (0.3 - 3.7 %) 0.5 Baso % (Auto) (0.0 - 2.0 %) 0.1 Neut # (Auto) (2.0 - 7.6 x10 3/uL) 11.78 H Lymph # (Auto) (1.0 - 3.8 x10 3/uL) 1.42 [place] # (Auto) (0.1 - 0.8 x10 3/uL) [...] (Auto) (14.0 - 32.0 %) 8.2 L [place] % (Auto) (4.8 - 9.0 %) 4.1 L Eos % (Auto) (0.3 - 3.7 %) 0.4 Baso % (Auto) (0.0 - 2.0 %) 0.1 Neut # (Auto) (2.0 - 7.6 x10 3/uL) 11.92 H Lymph # (Auto) (1.0 - 3.8 x10 3/uL) 1.13 [place] # (Auto) (0.1 - 0.8 x10 3/uL) [...] 856 Report Impression - Status: SIGNED Entered: 08/28/202227 IMPRESSION: 1. No evidence of venous thrombosis involving left lower extremity. 2. Approximately 8 x 2 x 1.3 cm complex fluid collection along the left upper calf probably representing a small hematoma. Impression By: [email or web address] - Roger Parra M.D. RADIOLOGY - XR FLUOROSCOPY 0-60 MIN 08/28 1100 Report Impression - Status: SIGNED Entered: 08/28/2022 112 IMPRESSION: Fluoroscopy dosage documentation. See also separate [...] (Auto) (14.0 - 32.0 %) 7.0 L [place] % (Auto) (4.8 - 9.0 %) 3.3 L Eos % (Auto) (0.3 - 3.7 %) 0.3 Baso % (Auto) (0.0 - 2.0 %) 0.1 Neut # (Auto) (2.0 - 7.6 x10 3/uL) 14.14 H Lymph # (Auto) (1.0 - 3.8 x10 3/uL) 1.11 [place] # (Auto) (0.1 - 0.8 x10 3/uL) [...] (Auto) (14.0 - 32.0 %) 7.4 L [place] % (Auto) (4.8 - 9.0 %) 3.9 L Eos % (Auto) (0.3 - 3.7 %) 0.5 Baso % (Auto) (0.0 - 2.0 %) 0.1 Neut # (Auto) (2.0 - 7.6 x10 3/uL) 15.49 H Lymph # (Auto) (1.0 - 3.8 x10 3/uL) 1.31 [place] # (Auto) (0.1 - 0.8 x10 3/uL) [...] pH (5.0 - 7.0) 5.0 Ur Specific [place] (1.005 - 1.030) 1.012 Urine Protein (NEGATIVE) [...] (Auto) (14.0 - 32.0 %) 8.1 L [place] % (Auto) (4.8 - 9.0 %) 4.3 L Eos % (Auto) (0.3 - 3.7 %) 0.5 Baso % (Auto) (0.0 - 2.0 %) 0.1 Neut # (Auto) (2.0 - 7.6 x10 3/uL) 15.44 H Lymph # (Auto) (1.0 - 3.8 x10 3/uL) 1.45 [place] # (Auto) (0.1 - 0.8 x10 3/uL) [...] (Auto) (14.0 - 32.0 %) 4.8 L [place] % (Auto) (4.8 - 9.0 %) 2.9 L Eos % (Auto) (0.3 - 3.7 %) 0.0 L Baso % (Auto) (0.0 - 2.0 %) 0.2 Neut # (Auto) (2.0 - 7.6 x10 3/uL) 19.90 H Lymph # (Auto) (1.0 - 3.8 x10 3/uL) 1.10 [place] # (Auto) (0.1 - 0.8 x10 3/uL) [...] 08/19 08/19 08/19 2223 2131 2014 1727 1652 Chemistry Sodium (134 - [...] (Auto) (14.0 - 32.0 %) 3.8 L [place] % (Auto) (4.8 - 9.0 %) 3.7 L Eos % (Auto) (0.3 - 3.7 %) 0.0 L Baso % (Auto) (0.0 - 2.0 %) 0.3 Neut # (Auto) (2.0 - 7.6 x10 3/uL) 17.97 H Lymph # (Auto) (1.0 - 3.8 x10 3/uL) 0.76 L [place] # (Auto) (0.1 - 0.8 x10 3/uL) [...] pH (5.0 - 7.0) 5.0 Ur Specific [place] (1.005 - 1.030) 1.013 Urine Protein (NEGATIVE) [...] (Auto) (14.0 - 32.0 %) 4.3 L [place] % (Auto) (4.8 - 9.0 %) 3.1 L Eos % (Auto) (0.3 - 3.7 %) 0.0 L Baso % (Auto) (0.0 - 2.0 %) 0.3 Neut # (Auto) (2.0 - 7.6 x10 3/uL) 19.17 H Lymph # (Auto) (1.0 - 3.8 x10 3/uL) 0.91 L [place] # (Auto) (0.1 - 0.8 x10 3/uL) [...] 121 Wound Culture - RES ABSCESS 08/19 121 Anaerobic Culture - RES ABSCESS 08/19 121 Gram Stain - RES ABSCESS Recent Impressions: ULTRASOUND - DUP LE [employer] UNI/LTD 08/19 0950 Report Impression - Status: [...] MRI is more sensitive for detecting osteomyelitis. Impression By: Ankur Ladd M.D. CAT SCAN - CT ABD PELVIS W/CONT 08/18 0339 Report Impression - Status: SIGNED Entered: 08/18/2022 0546 IMPRESSION: 3.3 cm hypodensity in the left posterior prostate or seminal vesicle. This could represent an abscess. Contrast-enhanced MRI of the pelvis would be helpful for further evaluation. No acute intra-abdominal findings otherwise. Impression By: [...] 1. 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 2. DKA 3. Cellulitis and gangrene of the right foot. 4. Sepsis 5. Altered mental status 6. High LFTs Blood sugar 90-105 mg/dL. HbA1c 13.4% White count 17.9 Sodium 121. Adjust insulin dose. Wound care and IV antibiotics. For wound debridement. at 1722 RPT #:[id number] END OF REPORT [facility] 2022-08-29 14:11:00 [facility] ([facility] Infectious Dis. Progress Note REPORT#:[id number] REPORT STATUS: Signed DATE:08/29/22 TIME: 1411 PATIENT: KARMA ROWLAND UNIT #: [id number] ROOM[address]BED: [address] : 61 AGE: 56 SEX: M ATTEND: Wilbert Ramires MD ADM AUTHOR: Merry Wolff MD * ALL edits or amendments must be made on the electronic/computer document * Subjective Chief complaint: Follow-up on MRSA bacteremia, right lower extremity necrotizing soft tissue infection. HPI: PT is [...] aspiration and unroofing of prostate abscess 08/26, aspiration cx growing GNR, pt is afebrile, WBC down to 15.9 from 17.7, 08/28 Pt had right BKA today, afebrile, WBC 13.8 from 15.9 08/29 pt doing well, awake, alert, afebrile, family at bedside, states he only has a little bit of pain Patient reports: Yes: pain controlled. No: cough, diarrhea, fever, headache, nausea, shortness of breath. Portions of this section were scribed by Jill Quintero on 08/29/22 at 1414 Objective General VS/I O: Vital Signs Date Temp Pulse Resp B/P B/P Mean Pulse Ox FiO2 08/28-08/29 98.2-99.5 78-95 - 87-166/54-81 67-115 95-100 Last Documented: Result Date Time Pulse Ox 97 08/29 1401 B/P 121/57 / 1401 B/P Mean 82 / 1401 Pulse 88 / 1401 Resp 15 08/29 1401 Temp 98.2 08/29 1200 O2 Delivery Room air 08/28 1235 O2 Flow Rate 7 08/28 1222 Vital Signs: Date Time Temp Pulse Resp B/P B/P Pulse O2 O2 Flow FiO2 Mean Ox Delivery Rate 08/29 1401 88 15 121/57 82 97 / 1300 93 20 166/76 109 100 04/ 1200 98.2 04/ 1200 91 14 165/81 115 98 04/07 1115 87 17 161/77 110 98 04/07 1112 86 98 04/07 1100 23 04/07 1000 86 13 145/68 98 98 04/ 0901 87 159/61 93 100 04/07 0900 [...] 115/57 81 97 04/06 2000 99.5 04/06 1999 90 10 98/54 73 [...] no JVD Cardiovascular: normal heart sounds, regular rate rhythm, no murmur Respiratory: clear to auscultation, aerating well, symmetric expansion Abdomen: non-tender, soft, no distention Genitourinary: urinary catheter ( on CBI) Extremities: edema, right BKA Neuro/QUANTITATIVE ANALYST: alert, 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 Considered stroke alert: [...] (Auto) (14.0 - 32.0 %) 10.0 L [place] % (Auto) (4.8 - 9.0 %) 5.6 Eos % (Auto) (0.3 - 3.7 %) 0.5 Baso % (Auto) (0.0 - 2.0 %) 0.1 Neut # (Auto) (2.0 - 7.6 x10 3/uL) 11.78 H Lymph # (Auto) (1.0 - 3.8 x10 3/uL) 1.42 [place] # (Auto) (0.1 - 0.8 x10 3/uL) [...] (Auto) (14.0 - 32.0 %) 10.0 L [place] % (Auto) (4.8 - 9.0 %) 5.6 Eos % (Auto) (0.3 - 3.7 %) 0.5 Baso % (Auto) (0.0 - 2.0 %) 0.1 Neut # (Auto) (2.0 - 7.6 x10 3/uL) 11.78 H Lymph # (Auto) (1.0 - 3.8 x10 3/uL) 1.42 [place] # (Auto) (0.1 - 0.8 x10 3/uL) [...] (0.0 - 0.1 0.00 x10 3/uL) 08/28 0420 2050 1825 1728 Chemistry Sodium (134 [...] (Auto) (14.0 - 32.0 %) 8.2 L [place] % (Auto) (4.8 - 9.0 %) 4.1 L Eos % (Auto) (0.3 - 3.7 %) 0.4 Baso % (Auto) (0.0 - 2.0 %) 0.1 Neut # (Auto) (2.0 - 7.6 x10 3/uL) 11.92 H Lymph # (Auto) (1.0 - 3.8 x10 3/uL) 1.13 [place] # (Auto) (0.1 - 0.8 x10 3/uL) [...] 08/29 1347 Blood Culture - RES BLOOD 08/28 134 Blood Culture - RES BLOOD Recent Impressions: ULTRASOUND - DUP VEIN UNI/LTD 08/28 0857 Report Impression - Status: SIGNED Entered: 08/28/2022 0927 IMPRESSION: 1. No evidence of venous thrombosis involving left lower extremity. 2. Approximately 8 x 2 x 1.3 cm complex fluid collection along the left upper calf probably representing a small hematoma. Impression By: [email or web address] - Roger Parra M.D. RADIOLOGY - XR FLUOROSCOPY 0-60 MIN 08/28 [...] Q3H PRN PRN 08/28 1815 AC 08/29 IV 09/02 1814 1357 Hydromorphone [...] ASDIR PRN 08/27 1929 DC IV 09/26 1929 Sodium Chloride 10 ML ASDIR PRN 08/27 1930 DC IV 09/26 192 Sodium Chloride 250 ML ASDIR PRN 08/27 1930 DC IV 09/26 1929 Sodium Chloride 0 [...] BID 08/21 2100 AC 08/29 PO 09/20 205 0846 Bisacodyl 10 MG DAILY PRN PRN [...] BEDTIME 08/28 2100 AC 08/28 SUBQ 09/27 2058 202 Insulin Glargine 15 UNIT BEDTIME 08/27 2100 DC 08/27 SUBQ 09/26 205 2141 Insulin Human Lispro 7 UNIT AC 08/20 1630 AC 08/28 SUBQ 09/19 1629 1319 Insulin Human Lispro 0 HS 08/20 1630 AC 08/28 SUBQ 09/19 1629 1319 Glucagon 1 MG ASDIR PRN 08/20 1530 AC IM 09/19 1529 Local Anesthetics (Parenteral) Sig/Jan Start time Last Medication Dose Route Stop Time Status Admin Lidocaine 1 PATCH DAILY 08/29 1230 AC 08/29 TOPICAL 09/28 1229 1343 Microbiology: 08/28 1348 BLOOD: Blood Culture - RES 08/28 1348 BLOOD: Blood Culture - RES 08/26 2216 ABSCESS: Wound Culture - COMP CITROBACTER FARMERI ENTEROCOCCUS RAFFINOSUS STAPH AUREUS,METHICILLIN RESIS 08/26 2216 ABSCESS: Anaerobic Culture - COMP 08/26 2216 ABSCESS: Gram Stain - COMP Recent Impressions: ULTRASOUND - DUP VEIN UNI/LTD 08/28 0857 Report Impression - Status: SIGNED Entered: 08/28/2022 0927 IMPRESSION: 1. No evidence of venous thrombosis involving left lower extremity. 2. Approximately 8 x 2 x 1.3 cm complex fluid collection along the left upper calf probably representing a small hematoma. Impression By: [email or web address] - Roger Parra M.D. RADIOLOGY - XR FLUOROSCOPY 0-60 MIN 08/28 [...] sets. -Repeat blood cultures 08/21/2022 are already positive for MRSA in 2 out of 2 sets, suggesting persistent high-grade bacteremia. -TTE 08/18/2022 negative for any obvious vegetations. *Severe sepsis due to above *Right lower extremity necrotizing fasciitis -MRI of foot (+)Ve for osteomyelitis -s/p debridement on 08/19: cx grew MRSA *DKA *Prostatic abscess *ERIKA *Hyponatremia *Diabetic neuropathy *Diabetes mellitus type 2 *Hypertension Plan: 08/25 -Discussed the possibility of amputation with patient and family at bedside -Recommend JIMENA. -Repeat blood cultures x2 again today. -Continue to repeat serial blood cultures till bacteremia clears. -D/C clindamycin and vancomycin. -start on DAptomycin and Teflaro -check urine cx Discussed with Dr. Du about MRI report 08/26 -plan for transrectal aspiration of abscess today -repeat blood cx are still (+)Ve; will repeat blood cx tomorrow -cont on daptomycin and Teflaro day #2 -Pt needs a JIMENA r/o endocarditis as pt has high grade persistent bacteremia -plan for Right BKA on 08/28 4 -s/p transrectal aspiration and unroofing of abscess; cx GNR; will follow - repeat blood cx today --cont on daptomycin and Teflaro day #3 -Pt needs a JIMENA r/o endocarditis as pt has high grade persistent bacteremia -plan for Right BKA on 08/28 08/28 s/p right BKA -repeat blood cx sent today -cont on Daptomycin day #4 -NEeds a JIMENA r/o endocarditis -prostate abscess: Coag (+)Ve staph, citrobacter and Enterococcus; on Merrem day #2 08/29 follow repeat blood cx from 08/28; pt need atleast 14 days from neg bloodcx needs a JIMENA r/o endocarditis; if (+)Ve need 6 weeks , if not able to do willneed 4 weeks -prostate abscess cx MRSA,citrobacter, Enterococcus; cont on Merrem and Daptomycin until cx are final day#3 out of 2-3 weeks Portions of this section were scribed by Jill Quintero on 08/29/22 at 1414 at 1740 RPT #[id number] END OF REPORT [facility] 2022-08-29 09:48:00 [facility] ([facility]) Adult General Consultation REPORT#:[id number] REPORT STATUS: Signed DATE:08/29/22 TIME: 947 PATIENT: KARMA ROWLAND UNIT #: [id number] ROOM/BED: [facility]25-1 : 63 AGE: 56 SEX: M ATTEND: Wilbert Ramires MD ADM AUTHOR: Mj Vences MD * ALL edits or amendments must be made on the electronic/computer document * History of Present Illness Requesting Clinician: Dr RAMIRES Reason for consult: Physical medicine and rehabilitation consultation Chief complaint: Pain and generalized weakness HPI: [...] is wearing a nestor-tech orthotic for right knee/BKA protection. Hemovac drain still in place. Prior to admission the patient was independent living in a single-story house with his spouse with a few steps up to front and back door. 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 is at bedside. Patient denies nausea , vomiting, fever, chills, chest pain, shortness of breath with dizziness. He is requiring IV Dilaudid for pain control. Mental status back to baseline. I was asked to evaluate the patient by physical medicine and rehabilitation standpoint. History - Adult longitudinal Additional medical history: DM 2 since age 33 DM neuropathy HTN hyperlipidemia Additional surgical history: as above Additional family history: reviewed and non contributory Alcohol use: Denies EtOH use Drug use: Denies recreational drugs Smoking status for patients 13 years old or older: Former Smoker Other social history: Local resident, Good social support Medications: Current Hospital Medications: Anti-Infective Agents [...] 181 AC 08/29 (DILAUDID) IV 09/02 1813 0434 Hydromorphone [...] 08/27 2100 DC 08/27 (Lantus/Semglee) SUBQ 09/26 Insulin Human Lispro 7 UNIT [...] or in the body of the consultation Objective VS/I O: Last Documented: Result Date Time Pulse Ox 100 08/29 900 B/P 159/61 08/29 900 B/P Mean 93 08/29 900 Pulse 87 08/29 900 Resp 21 08/29 09 Temp 98.2 08/29 08 O2 Delivery Room [...] General appearance: alert, awake, oriented, no acute distress Head/Eyes: atraumatic, clear cornea, EOMI, normocephalic, PERRLA ENT: normal sinus, moist mucosal membranes Neck: non-tender, no JVD, supple/no meningismus Cardiovascular: pedal pulses present (L foot), regular rate rhythm, normal heart sounds, BP/pulses equal bilat., BUE distal pulse good, LLE distal pulses 1 +/4 Respiratory: aerating well, symmetric expansion, clear to auscultation, no distress Abdomen: soft, non-tender, no guarding, no rebound, no distention Genitourinary: CAMARENA/CBI-clear Extremities: moves all, no calf tenderness, no clubbing, no cyanosis, R BKA W DSG, L ankle mild edema, sl tender, OA changes. Musculoskeletal: normal inspection, no muscle spasm, MMT BUE 5/5, LLE 4/5, R hip 3-/5, R knee in nestor-tech orthotic Neuro/QUANTITATIVE ANALYST: gait not tested, alert, oriented X 3, CNII-XII grossly intact Skin: dry, normal color, no rash, R BKA w dsg/joan, hemovac drain Lymphatics: neck normal, no lymphadenopathy Psychiatry: normal affect, normal judgment/insight, normal mood Results Findings/Data: Laboratory Tests: 08/29 08/29 08/29 08/28 0912 0844 0537 2015 Chemistry Sodium (134 - 147 mEq/L) [...] (Auto) (14.0 - 32.0 %) 10.0 L [place] % (Auto) (4.8 - 9.0 %) 5.6 Eos % (Auto) (0.3 - 3.7 %) 0.5 Baso % (Auto) (0.0 - 2.0 %) 0.1 Neut # (Auto) (2.0 - 7.6 x10 3/uL) 11.78 H Lymph # (Auto) (1.0 - 3.8 x10 3/uL) 1.42 [place] # (Auto) (0.1 - 0.8 x10 3/uL) [...] 1348 Blood Culture - RECD BLOOD Recent Impressions: [...] small hematoma. Impression By: [email or web address] Cr Parra M.D. RADIOLOGY - XR FLUOROSCOPY 0-60 MIN 08/28 [...] P Notes: Assessment: 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 S/p surgical debridement and washout S/p right BKA DKA, DM 2, poorly controlled Diabetic polyneuropathy Minimal PAD MRSA bacteremia/sepsis ERIKA Severe hyponatremia-resolved HTN Acute on chronic anemia Left calf hematoma Edema and clinical arthritis left ankle Prostatic abscess s/p transrectal ultrasound aspiration of abscess and transurethral resection of prostate and unroofing of abscess Echo: EF 55-59%, grade 1 diastolic dysfunction Hypoalbuminemia Significant impairment in self-care, ADLs and functional mobility Plan: -Continue PT and OT -Case management for safe discharge planning. -Decubitus prevention -Nutrition, monitor the patient's p.o. intake, albumin 1.3, check prealbumin, dietary consultation, protein supplements promote healing -Strict fall and safety precaution -DVT prophylaxis-subcutaneous heparin -GI prophylaxis on Pepcid -Early mobilization-OOB to chair -Work on bed mobility, transfer training, ADLs, pre-gait and gait exercises as tolerable. -Increase endurance and strength -Pain management-patient requiring IV Dilaudid -Glycemic control as per endo-blood sugars much improved -Monitor labs-WBC trending down, hemoglobin 7.1, sodium normal, creatinine 1.5 -Has received multiple units of PRBCs-check CBC in a.m. -ID requesting JIMENA to rule out endocarditis, continue ABX -Patient on CBI and urine is clear- following -Edema and clinical arthritis left ankle-Lidoderm patch and Joan wrap -NWB right BKA, continue Nestor-tech orthotic, I will examine incision on Thursday -Right BKA amputee rehab -Excellent candidate for inpatient rehab, admit preauthorization if okay with rehabilitation admissions. Referral to [facility] E. rehab ordered. Patient and would like to stay here at [facility]. -We will continue to monitor patients progress and make further recommendations Thank you Dr. Ramires for this kind referral. TT 68 min>50% with discussing with patient and about recommendations for IRF, rehab plan of care, goals, expectations, needs, and medical issues, examination. MAR and EMR reviewed. All Questions answered. at 1224 RPT #:[id number] END OF REPORT [facility] 2022-08-29 06:54:00 [facility] ([facility]) Hospitalist Progress Note REPORT#:[id number] REPORT STATUS: Signed DATE:08/29/22 TIME: 0654 PATIENT: KARMA ROWLAND UNIT #: [id number] ROOM/BED: M325-1 : 63 AGE: 56 SEX: M ATTEND: Wilbert Ramires MD ADM AUTHOR: Wilbert Ramires MD * ALL edits or amendments must be made on the electronic/computer document * Subjective Chief complaint: AMS and right foot infection. s/p extensive debridement. s/p BKA. pain controlled Review of Systems All systems rev neg: except as noted Objective General VS/I O: Vital Signs: Date Time Temp Pulse Resp B/P B/P Pulse O2 O2 Flow FiO2 Mean Ox Delivery Rate 04/ 0600 79 10 113/57 78 97 04/07 [...] 115/57 81 97 04/06 1999 99.5 04/06 2000 90 10 98/54 73 [...] 04/06 0930 90 19 127/62 89 96 08/28 899 86 17 124/64 87 96 08/29 0730 90 14 119/58 81 95 08/28 0800 98.4 08/28 08 87 13 133/63 90 95 08/28 0745 85 15 130/63 90 95 08/28 0630 87 16 102/55 72 97 08/28 0715 87 14 119/60 84 95 08/28 699 87 10 120/62 85 94 24 hour I O ending at 0700: 08/29 1900 Intake Total 6310.00 560.00 Output Total 4650 2700 Balance 1660.00 -2140.00 Intake, IV 60.00 80.00 Intake, Oral 250 480 Intake, Other 6000 Intake, Tube Irrigant Output, Urine 4650 2700 Patient 69.9 kg Weight Weight Bed scale Measurement Method PATIENT WEIGHT: Weight (lb): 154 Weight (oz): 1.65 Weight (kg): 69.900 Medications: Active Meds + DC'd Last 24 Hrs Insulin Glargine (Lantus/Semglee) 20 UNIT BEDTIME SUBQ Hydromorphone HCl (DILAUDID) 1 MG Q3H PRN PRN IV Hydromorphone HCl (DILAUDID) 0.5 MG Q3H PRN PRN IV Cefazolin Sodium (KEFZOL OR ANCEF) 1 GM Q8H IV Sodium Chloride (SODIUM CHLORIDE) 10 ML Fentanyl Citrate (SUBLIMAZE) 0 .STK-MED ONE .ROUTE [...] ) Fentanyl Citrate (SUBLIMAZE) 0 .STK-MED ONE .ROUTE [...] 5000 UNITS/ML) 5,000 UNIT Q8HR SUBQ Physical Exam General appearance: alert, awake, oriented Head/Eyes: normocephalic ENT: moist mucosal membranes Neck: no JVD Cardiovascular: regular rate rhythm, no heave Respiratory: aerating well, clear to auscultation, symmetric expansion, no distress Abdomen: non-tender, normal bowel sounds, soft, no distention Genitourinary: no bladder distention Extremities: R foot in dressing Neuro/QUANTITATIVE ANALYST: alert, oriented X 3, normal speech Considered stroke alert: no Skin: no rash Psychiatry: normal affect, normal judgment/insight, normal mood Results Findings/Data: Laboratory Tests 08/29 1709 1302 1218 Chemistry Sodium [...] (Auto) (14.0 - 32.0 %) 10.0 L [place] % (Auto) (4.8 - 9.0 %) 5.6 Eos % (Auto) (0.3 - 3.7 %) 0.5 Baso % (Auto) (0.0 - 2.0 %) 0.1 Neut # (Auto) (2.0 - 7.6 x10 3/uL) 11.78 H Lymph # (Auto) (1.0 - 3.8 x10 3/uL) 1.42 [place] # (Auto) (0.1 - 0.8 x10 3/uL) [...] (0.0 - 0.1 x10 3/uL) 0.00 Radiology data: Recent Impressions: ULTRASOUND - DUP VEIN UNI/LTD 08/28 0857 Report Impression - Status: SIGNED Entered: 08/28/2022 0927 IMPRESSION: 1. No evidence of venous thrombosis involving left lower extremity. 2. Approximately 8 x 2 x 1.3 cm complex fluid collection along the left upper calf probably representing a small hematoma. Impression By: [email or web address] - Roger Parra M.D. RADIOLOGY - XR FLUOROSCOPY 0-60 MIN 08/28 1101 Report Impression - Status: SIGNED Entered: 08/28/2022 1120 IMPRESSION: Fluoroscopy dosage documentation. See also separate procedure notes. Impression By: [email or web address] - Bishop Atkins M.D. Diagnosis, Assessment Plan Free Text DxA P Notes Free text DxA P notes: DKA DM 2, poorly controlled severe gas gangrene, right foot/necrotizing fascitis - s/p BKA MRSA bacteremia ERIKA severe hyponatremia likely due to combination of severe hyperglycemia and dehydration from DKA sepsis due to foot infection DM neuropathy HTN anemia, acute due to blood loss left calf hematoma prostatic abscess with Citrobacter and enterococcus Plans: - admit to ICU - continue IV fluids aggressively - monitor lytes and AG - IV insulin drip for now until gap closes - endo eval - keep on Vancomycin and Zosyn - podiatry eval - d.w Nuvia Hernandez - likely will need debridement - [...] - will likely need wound vac and usp IV antibiotic therapy - d/w at bedside [...] as per ID Updated Urology on MRI results, Dr. Du will review images and discuss with family for possible prostate/seminal vesicle abscess Cont wound care as per Podiatry, may have debridement today BP and BS well controlled K+ high, repeat level Hgb 7.3 stable Discussed with at bedside 08/26/2022 - hgb low. will transfuse 2 units - d.w Dr. Jeffrey - patient has lost so much tissues [...] Heparin SQ for VTE at 0659 RPT #:[id number] END OF REPORT [facility] 2022-08-28 17:45:00 [facility] ([facility]) Endocrinology Progress Note REPORT#:[id number] REPORT STATUS: Signed DATE:08/28/22 TIME: 1744 PATIENT: KARMA ROWLAND UNIT #: [id number] ROOM/BED: [facility]25-1 : 63 AGE: 56 SEX: M ATTEND: Wilbert Ramires MD ADM AUTHOR: Braxton Chapin MD * ALL edits or amendments must be made on the electronic/computer document * Subjective Patient reports: no complaints [...] ML Fentanyl Citrate (SUBLIMAZE) 0 .STK-MED ONE .ROUTE [...] ) Fentanyl Citrate (SUBLIMAZE) 0 .STK-MED ONE .ROUTE [...] 5000 UNITS/ML) 5,000 UNIT Q8HR SUBQ Physical Exam General appearance: alert, [...] (Auto) (14.0 - 32.0 %) 8.2 L [place] % (Auto) (4.8 - 9.0 %) 4.1 L Eos % (Auto) (0.3 - 3.7 %) 0.4 Baso % (Auto) (0.0 - 2.0 %) 0.1 Neut # (Auto) (2.0 - 7.6 x10 3/uL) 11.92 H Lymph # (Auto) (1.0 - 3.8 x10 3/uL) 1.13 [place] # (Auto) (0.1 - 0.8 x10 3/uL) [...] Impression By: [email or web address] - Roger Parra M.D. RADIOLOGY - XR FLUOROSCOPY 0-60 MIN 08/28 [...] (Auto) (14.0 - 32.0 %) 7.0 L [place] % (Auto) (4.8 - 9.0 %) 3.3 L Eos % (Auto) (0.3 - 3.7 %) 0.3 Baso % (Auto) (0.0 - 2.0 %) 0.1 Neut # (Auto) (2.0 - 7.6 x10 3/uL) 14.14 H Lymph # (Auto) (1.0 - 3.8 x10 3/uL) 1.11 [place] # (Auto) (0.1 - 0.8 x10 3/uL) [...] (Auto) (14.0 - 32.0 %) 7.4 L [place] % (Auto) (4.8 - 9.0 %) 3.9 L Eos % (Auto) (0.3 - 3.7 %) 0.5 Baso % (Auto) (0.0 - 2.0 %) 0.1 Neut # (Auto) (2.0 - 7.6 x10 3/uL) 15.49 H Lymph # (Auto) (1.0 - 3.8 x10 3/uL) 1.31 [place] # (Auto) (0.1 - 0.8 x10 3/uL) [...] pH (5.0 - 7.0) 5.0 Ur Specific [place] (1.005 - 1.030) 1.012 Urine Protein (NEGATIVE) [...] (Auto) (14.0 - 32.0 %) 8.1 L [place] % (Auto) (4.8 - 9.0 %) 4.3 L Eos % (Auto) (0.3 - 3.7 %) 0.5 Baso % (Auto) (0.0 - 2.0 %) 0.1 Neut # (Auto) (2.0 - 7.6 x10 3/uL) 15.44 H Lymph # (Auto) (1.0 - 3.8 x10 3/uL) 1.45 [place] # (Auto) (0.1 - 0.8 x10 3/uL) [...] (Auto) (14.0 - 32.0 %) 4.8 L [place] % (Auto) (4.8 - 9.0 %) 2.9 L Eos % (Auto) (0.3 - 3.7 %) 0.0 L Baso % (Auto) (0.0 - 2.0 %) 0.2 Neut # (Auto) (2.0 - 7.6 x10 3/uL) 19.90 H Lymph # (Auto) (1.0 - 3.8 x10 3/uL) 1.10 [place] # (Auto) (0.1 - 0.8 x10 3/uL) [...] (Auto) (14.0 - 32.0 %) 3.8 L [place] % (Auto) (4.8 - 9.0 %) 3.7 L Eos % (Auto) (0.3 - 3.7 %) 0.0 L Baso % (Auto) (0.0 - 2.0 %) 0.3 Neut # (Auto) (2.0 - 7.6 x10 3/uL) 17.97 H Lymph # (Auto) (1.0 - 3.8 x10 3/uL) 0.76 L [place] # (Auto) (0.1 - 0.8 x10 3/uL) [...] pH (5.0 - 7.0) 5.0 Ur Specific [place] (1.005 - 1.030) 1.013 Urine Protein (NEGATIVE) [...] 1710 Blood Culture - ORD BLOOD 08/19 171 [...] L 08/19 08/19 08/19 08/19 0805 0737 0715 0677 Chemistry Sodium (134 - 147 mEq/L) 130 [...] (Auto) (14.0 - 32.0 %) 4.3 L [place] % (Auto) (4.8 - 9.0 %) 3.1 L Eos % (Auto) (0.3 - 3.7 %) 0.0 L Baso % (Auto) (0.0 - 2.0 %) 0.3 Neut # (Auto) (2.0 - 7.6 x10 3/uL) 19.17 H Lymph # (Auto) (1.0 - 3.8 x10 3/uL) 0.91 L [place] # (Auto) (0.1 - 0.8 x10 3/uL) [...] - RES ABSCESS Recent Impressions: ULTRASOUND - [facility] [employer] UNI/LTD 08/19 0950 Report Impression - Status: [...] 914 Wound Culture - ORD FOOT 08/18 0207 Wound Culture - RECD FOOT 08/18 020 [...] MRI is more sensitive for detecting osteomyelitis. Impression By: [email or web address] - Jay Ladd M.D. CAT SCAN - CT ABD PELVIS W/CONT 08/18 0339 Report Impression - Status: SIGNED Entered: 08/18/2022 0546 IMPRESSION: 3.3 cm hypodensity in the left posterior prostate or seminal vesicle. This could represent an abscess. Contrast-enhanced MRI of the pelvis would be helpful for further evaluation. No acute intra-abdominal findings otherwise. Impression By: [...] 1. 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 2. DKA 3. Cellulitis and gangrene of the right foot. 4. Sepsis 5. Altered mental status 6. High LFTs Blood sugar 167-107 mg/dL. HbA1c 13.4% White count 17.9 Sodium 121. Adjust insulin dose. Wound care and IV antibiotics. For wound debridement. at 1746 RPT #:[id number] END OF REPORT [facility] 2022-08-28 14:47:00 [facility] Podiatry Progress Note REPORT#:[id number] REPORT STATUS: Signed DATE:08/28/22 TIME: 1447 PATIENT: KARMA ROWLAND UNIT #: [id number] ROOM/BED: [place] [address] : 61 AGE: 56 SEX: M ATTEND: Wilbert Ramires MD ADM AUTHOR: Liam Jeffrey DPM * ALL edits or amendments must be made on the electronic/computer document * Subjective Chief complaint: seen at bedside,. family memebers next to him denies having any pain foot covered and protected and offloaded drainage noted serosang. increased warmth Patient reports: no confusion, no cough, no fatigue, no heartburn Objective General VS: Last Documented: [...] ML Fentanyl Citrate (SUBLIMAZE) 0 .STK-MED ONE .ROUTE [...] ) Fentanyl Citrate (SUBLIMAZE) 0 .STK-MED ONE .ROUTE [...] 5000 UNITS/ML) 5,000 UNIT Q8HR SUBQ I O: 24 hour I O ending at 0700: 06 0700 04/05 1900 Intake Total 48781.00 Output Total 81357 Balance 290.00 Intake, IV 160.00 Intake, Oral 1380 Intake, Other 71704 Number 2 Bowel Movements Output, Other 89761 Patient 74.9 kg Weight Weight Bed scale Measurement Method Dietitian nutrition assessment The data set between the solid lines has been imported from the dietitian's assessment. BMI Calculated: 26.7 Nutrition related diagnosis: Overweight Nutrition diagnosis details: BMI 25-29.9 Nutrition problem: Increased nutrient needs Nutrition etiology: metabolic demand of wound , healing Nutrition signs and symptoms: recent BKA with need [...] (Auto) (14.0 - 32.0 %) 8.2 L [place] % (Auto) (4.8 - 9.0 %) 4.1 L Eos % (Auto) (0.3 - 3.7 %) 0.4 Baso % (Auto) (0.0 - 2.0 %) 0.1 Neut # (Auto) (2.0 - 7.6 x10 3/uL) 11.92 H Lymph # (Auto) (1.0 - 3.8 x10 3/uL) 1.13 [place] # (Auto) (0.1 - 0.8 x10 3/uL) [...] Impression By: [email or web address] - Roger Parra M.D. RADIOLOGY - XR FLUOROSCOPY 0-60 MIN 08/28 [...] accurate, it is of skin that was intact) 08/19 OR culture: MRSA blood cultures: MRSA Offloading boot ICU for now pulse lavage by physical therapy joan wrap compression left ankle MRI: osteo plan for BKA right with Dr. Leroy today venous u/s left no dvt at 1448 RPT #:[id number] END OF REPORT [facility] 2022-08-28 14:44:00 [facility] ([facility]) Infectious Dis. Progress Note REPORT#:[id number] REPORT STATUS: Signed DATE:08/28/22 TIME: 1444 PATIENT: KARMA ROWLAND UNIT #: [id number] ROOM/BED: M325-1 : 63 AGE: 56 SEX: M ATTEND: Wilbert Ramires MD ADM AUTHOR: Merry Wolff MD * ALL edits or amendments must be made on the electronic/computer document * Subjective Chief complaint: Follow-up on MRSA bacteremia, right lower extremity necrotizing soft tissue infection. HPI: PT is [...] aspiration and unroofing of prostate abscess 08/26, aspiration cx growing GNR, pt is afebrile, WBC down to 15.9 from 17.7, 08/28 Pt had right BKA today, afebrile, WBC 13.8 from 15.9 Nursing reports: No: agitated, cough, diarrhea, [...] 04/05 2014 83 11 138/68 95 97 08/28 1999 97.9 08/28 1999 83 10 140/71 100 98 08/27 194 84 12 140/69 99 97 08/27 1930 85 12 155/73 105 99 08/27 1915 85 14 154/73 105 100 08/27 1900 87 15 158/72 104 93 24 hour I O ending at 0700: 08/28 0700 08/27 1900 Intake Total 26114.00 Output Total 20784 Balance 290.00 Intake, IV 160.00 Intake, Oral 1380 Intake, Other 79997 Number 2 Bowel Movements Output, Other 57803 Patient 74.9 kg Weight Weight Bed scale [...] no JVD Cardiovascular: normal heart sounds, regular rate rhythm, no murmur Respiratory: clear to auscultation, aerating well, symmetric expansion Abdomen: non-tender, soft, no distention Genitourinary: urinary catheter ( on CBI) Extremities: edema, right BKA Neuro/QUANTITATIVE ANALYST: alert, 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 Considered stroke alert: [...] (Auto) (14.0 - 32.0 %) 8.2 L [place] % (Auto) (4.8 - 9.0 %) 4.1 L Eos % (Auto) (0.3 - 3.7 %) 0.4 Baso % (Auto) (0.0 - 2.0 %) 0.1 Neut # (Auto) (2.0 - 7.6 x10 3/uL) 11.92 H Lymph # (Auto) (1.0 - 3.8 x10 3/uL) 1.13 [place] # (Auto) (0.1 - 0.8 x10 3/uL) [...] (Auto) (14.0 - 32.0 %) 8.2 L [place] % (Auto) (4.8 - 9.0 %) 4.1 L Eos % (Auto) (0.3 - 3.7 %) 0.4 Baso % (Auto) (0.0 - 2.0 %) 0.1 Neut # (Auto) (2.0 - 7.6 x10 3/uL) 11.92 H Lymph # (Auto) (1.0 - 3.8 x10 3/uL) 1.13 [place] # (Auto) (0.1 - 0.8 x10 3/uL) [...] 5.0 g/dL) 1.30 L 08/27 08/26 08/26 1308 2041 1739 Chemistry POC Glucose (70 - [...] (Auto) (14.0 - 32.0 %) 7.0 L [place] % (Auto) (4.8 - 9.0 %) 3.3 L Eos % (Auto) (0.3 - 3.7 %) 0.3 Baso % (Auto) (0.0 - 2.0 %) 0.1 Neut # (Auto) (2.0 - 7.6 x10 3/uL) 14.14 H Lymph # (Auto) (1.0 - 3.8 x10 3/uL) 1.11 [place] # (Auto) (0.1 - 0.8 x10 3/uL) [...] Report Impression - Status: SIGNED Entered: 08/28/2022 5345 IMPRESSION: 1. No evidence of venous thrombosis involving left lower extremity. 2. Approximately 8 x 2 x 1.3 cm complex fluid collection along the left upper calf probably representing a small hematoma. Impression By: [email or web address] - Roger Parra M.D. RADIOLOGY - XR FLUOROSCOPY 0-60 MIN 08/28 [...] ONCE PRN 08/28 1045 DC IV 08/28 2036 Promethazine HCl 25 MG PACU ONCE PRN [...] HCl 2 ML PREOP ONCALL 08/27 1930 AC LOCAL 09/26 2359 Lidocaine HCl 2 ML [...] 09/26 2358 Gabapentin 200 MG PREOP ONCALL 08/27 1929 CKD PO 09/26 2358 Lorazepam 1 MG ONCE PRN 08/21 09 AC 08/21 IV 09/20 0859 1143 Acetaminophen 650 MG Q6H PRN PRN 08/18 0945 AC 08/28 PO 09/17 0944 0255 Electrolytic, Caloric, And Daniel Sig/Jan Start time Last Medication Dose Route Stop Time Status Admin Lactated Ringer's 1,000 ML PREOP ONCALL 08/27 1929 AC IV 09/26 2358 Sodium Chloride 500 ML PREOP ONCALL 08/27 1929 AC IV 09/26 235 Sodium Chloride 500 ML PREOP ONCALL 08/27 1929 AC IV 09/26 2358 Sodium Chloride 1,000 ML PREOP ONCALL 08/27 1929 AC IV 09/26 2359 Sodium Chloride 5 ML ASDIR PRN 08/27 193 AC IV 09/26 192 Sodium Chloride 10 ML ASDIR PRN 08/27 1930 AC IV 09/26 192 Sodium Chloride 250 [...] 1045 DC LOCAL 08/29 2035 Microbiology: 08/28 1348 BLOOD: Blood Culture - RECD 08/28 1348 BLOOD: Blood Culture - RECD 08/26 2216 [...] Impression By: [email or web address] - Roger Parra M.D. RADIOLOGY - XR FLUOROSCOPY 0-60 MIN 08/28 1101 Report Impression - Status: SIGNED Entered: 08/28/2022 1120 IMPRESSION: Fluoroscopy dosage documentation. See also separate procedure notes. Impression By: [email or web address] - Bishop Atkins M.D. Portions of this section were scribed by Jill Quintero on 08/28/22 at 1856 Treatment Prophylaxis Treatment Prophylaxis Lines: peripheral Portions of this section were scribed by Jill Quintero on 08/28/22 at 1444 Diagnosis, Assessment Plan Free Text A P: Assessment: *MRSA bacteremia -Initial blood cultures from 08/18/2022 positive for MRSA in 2 out of 2 sets. -Repeat blood cultures 08/21/2022 are already positive for MRSA in 2 out of 2 sets, suggesting persistent high-grade bacteremia. -TTE 08/18/2022 negative for any obvious vegetations. *Severe sepsis due to above *Right lower extremity necrotizing fasciitis -MRI of foot (+)Ve for osteomyelitis -s/p debridement on 08/19: cx grew MRSA *DKA *Prostatic abscess *ERIKA *Hyponatremia *Diabetic neuropathy *Diabetes mellitus type 2 *Hypertension Plan: 08/25 -Discussed the possibility of amputation with patient and family at bedside -Recommend JIMENA. -Repeat blood cultures x2 again today. -Continue to repeat serial blood cultures till bacteremia clears. -D/C clindamycin and vancomycin. -start on DAptomycin and Teflaro -check urine cx Discussed with Dr. Du about MRI report 08/26 -plan for transrectal aspiration of abscess today -repeat blood cx are still (+)Ve; will repeat blood cx tomorrow -cont on daptomycin and Teflaro day #2 -Pt needs a JIMENA r/o endocarditis as pt has high grade persistent bacteremia -plan for Right BKA on 08/28 4/ -s/p transrectal aspiration and unroofing of abscess; cx GNR; will follow - repeat blood cx today --cont on daptomycin and Teflaro day #3 -Pt needs a JIMENA r/o endocarditis as pt has high grade persistent bacteremia -plan for Right BKA on 08/28 4 s/p right BKA -repeat blood cx sent today -cont on Daptomycin day #4 -NEeds a JIMENA r/o endocarditis -prostate abscess: Coag (+)Ve staph, citrobacter and Enterococcus; on Merrem day #2 Portions of this section were scribed by Jill Quintero on 08/28/22 at 1856 at 0810 RPT #:[id number] END OF REPORT [facility] 2022-08-28 12:06:00 [id number] [place] [address] PATIENT NAME: KARMA ROWLAND ADMIT DATE: 08/18/22 ACCOUNT NO: [id number] ROOM NO: [facility] [place] AGE: 56 REPORT TYPE: OPERATIVE REPORT SEX: M ADMITTING PHYSICIAN:Wilbert Ramires MD ATTENDING PHYSICIAN:Wilbert Ramires MD OPERATION DATE: 08/28/2022 PREOPERATIVE DIAGNOSIS: Right foot and ankle gangrene. POSTOPERATIVE DIAGNOSIS: Right foot and ankle gangrene. PROCEDURE PERFORMED: Right below-knee amputation. SURGEON: ATTENDING SURGEON:: Nixon Leroy MD. ASSISTANTS: 1. JAMES Josue. 2. Letha, PGY-3. ANESTHESIA: General endotracheal anesthesia. 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 The patient went for an urgent debridement on presentation. The patient's extremity was significantly damage from the infection and nonreconstructable from podiatry standpoint, thus a BKA was recommended. The patient was agreeable to proceed. Risks, benefits and alternatives were discussed with the patient. Risks include but not limited to pain, bleeding, damage to neurovascular structures, infection, wound dehiscence, phantom pain, knee stiffness, inability to return to baseline activity level, need for further procedures, and anesthetic complications. Benefits include infection control and stable extremity for prosthetic fitting. Alternatives include no surgery, which was not indicated for this grossly infected extremity with possible risk of further clinical worsening. Extremity was marked by the surgeon, confirmed by the patient. Consent was obtained at bedside after the above has been reviewed. PROCEDURE IN DETAIL: The patient was taken from the ICU down to the operating room via stretcher. He was placed supine on the operating table. The patient was intubated under general endotracheal anesthesia. We began by placing a tourniquet around the thigh and a hip roll. The extremity was then prepped and draped in a sterile fashion. Timeout was performed to ensure the proper extremity and appropriate surgery, all were in agreement. We began by marking out our landmarks. We marked our proposed bony cut approximately 10 cm distal from the tibial tubercle. We then created our flaps with an anterior two-thirds anterior incision and a flap approximately 1.5 times longer than the anterior cut. Timeout was performed to ensure the proper extremity and proper surgery, all were in agreement. We then elevated the extremity and then inflated the tourniquet. We began by making a full-thickness incision with a 10 blade PATIENT NAME: KARMA ROWLAND circumferentially. There was some expression of purulent fluid distally near the borders of the demarcation. We then began to dissect on the anterolateral aspect of the lower leg. Once through the anterior compartment musculature, we then identified the deep vessels. The vessels were ligated and cut. The deep peroneal vessel was infiltrated with lidocaine and then transected sharply and allowed to retract the soft tissues. We then completed further transection of the musculature medially. Once the tibia was exposed, we then periosteally elevated proximally as well as posteriorly. An [place] was placed posterior to the tibia to [...] holes were placed. We then placed two [place] sutures with #5 Ethibond and the fascia [...] right lower extremity. We will monitor VAC output for possible removal postoperative day #1 or #2. Dictated By: Nixon Leroy MD PATIENT NAME: KARMA ROWLAND Date Dictated: 08/28/2022 12:06:09 Date Transcribed: 08/28/2022 13:10:48 YENI/TONI/YASMINE Receipt ID: [id number] Authenticated and Edited by Nixon Leroy MD On 10/15/22 8:24:59 PM at 0827 PATIENT NAME: KARMA ROWLAND [facility] 2022-08-28 11:57:00 [facility] ([facility]) Op/Inv Procedure Note - Brief REPORT#:[id number] REPORT STATUS: Signed DATE:08/28/22 TIME: 1156 PATIENT: KARMA ROWLAND UNIT #: [id number] ROOM/BED: [place] [address] : 63 AGE: 56 SEX: M ATTEND: Wilbert Ramires MD ADM AUTHOR: Nixon Leroy MD * ALL edits or amendments must be made on the electronic/computer document * Op/Inv Proc Note - Brief TEXT Brief Op/Inv Procedure Note Note details: *PRE-PROCEDURE DIAGNOSIS: [] right foot and ankle gangrene *POST-PROCEDURE DIAGNOSIS: Same[] *PROCEDURE(S) PERFORMED: []1. right below knee amputation *PRIMARY SURGEON: []MD Alfred *SALES PROMOTION OFFICER(S): []JAMES Josue, PGY-3 ANESTHETIC: []geta *ESTIMATED BLOOD LOSS in ml's: []50 mL *SPECIMEN(S) REMOVED: []right lower leg *COMPLICATIONS: None[] DRAIN(S): Hemovac x 1[] TUBE(S): None[] IMPLANT(S): None[] FLUIDS: []500 cc LR URINE OUTPUT: []n/a *FINDINGS: []as above DISPOSITION: To PACU[] NWB RLE monitor vac output will need consult for [facility] stump protector [id number] at 1206 RPT #:[id number] END OF REPORT [facility] 2022-08-28 09:52:00 [facility] ([facility]) Cardiology Progress Note REPORT#:[id number] REPORT STATUS: Signed DATE:08/28/22 TIME: 951 PATIENT: KARMA ROWLAND UNIT #: [id number] ROOM/BED: M325-1 : 63 AGE: 56 SEX: M ATTEND: Wilbert Ramires MD ADM AUTHOR: Rohit Benitez LOG ROPER * ALL edits or amendments must be made on the electronic/computer document * Rohit Benitez 08/28/22 0952: Subjective Chief complaint: foot infection Free Text Subj Notes Free Text Subj Notes: Chart reviewed. No new events overnight. Plan for right BKA today. Objective General VS/I O: 24 hour I O ending at 0700: 0406 0700 04/05 1900 Intake Total 29289.00 Output Total 49311 Balance 290.00 Intake, IV 160.00 Intake, Oral 1380 Intake, Other 84832 Number 2 Bowel Movements Output, Other 00916 Patient 165 lb Weight Weight Bed scale Measurement Method Vital Signs: Date Time Temp Pulse Resp B/P B/P Pulse O2 O2 Flow FiO2 Mean Ox Delivery Rate / 0900 86 17 124/64 87 96 04/06 [...] Hrs Fentanyl Citrate (SUBLIMAZE) 0 .STK-MED ONE .ROUTE [...] INJECTION) 10 ML Calcium Gluconate/Sodium Chloride (Calcium Gluconate 1 GM/NS [...] 5000 UNITS/ML) 5,000 UNIT Q8HR SUBQ Physical Exam General appearance: alert, awake, oriented Neck: no bruit/NL carotids, no JVD Cardiovascular: CV assessment: abnormal S1/S2, regular rate and rhythm, no ectopy Respiratory: clear to auscultation, no distress Lower extremity: LE assessment: edema Neuro/QUANTITATIVE ANALYST: alert, oriented X 3 Considered stroke alert: no Wound/incision: Location: right foot Psychiatry: normal affect, normal judgment/insight, normal mood Results Findings/Data: Laboratory Tests 08/28 1825 1728 Chemistry Sodium (134 - 147 [...] (3.4 - 5.0 g/dL) 1.30 L 08/27 114 Chemistry POC Glucose (70 - 110 MG/DL) 244 H Laboratory Tests 08/29 419 Hematology WBC (4.5 [...] (Auto) (14.0 - 32.0 %) 8.2 L [place] % (Auto) (4.8 - 9.0 %) 4.1 L Eos % (Auto) (0.3 - 3.7 %) 0.4 Baso % (Auto) (0.0 - 2.0 %) 0.1 Neut # (Auto) (2.0 - 7.6 x10 3/uL) 11.92 H Lymph # (Auto) (1.0 - 3.8 x10 3/uL) 1.13 [place] # (Auto) (0.1 - 0.8 x10 3/uL) [...] Report Impression - Status: SIGNED Entered: 08/28/2022 8260 IMPRESSION: 1. No evidence of venous thrombosis [...] elevated blood sugar. Diagnosed with DKA and sepsis. 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 Known cardiac history of hypertension and hyperlipidemia. Denies prior history of CAD, CHF or arrhythmia. EKG abnormal, NSR with anterior infarct. Vital signs stable. No prior cardiac work-up. -Check echocardiogram -Monitor telemetry for arrhythmia -Monitor [...] Cleared from cardiac standpoint to proceed with planned surgery. Supportive care. Plan of care discussed with patient, RN and Dr. Parham. 08/28: Stable cardiac status. Plan for right BKA today. Continue antibiotic therapy and wound care. Will monitor patient postoperatively for arrhythmia. Continue monitor telemetry. Pain management and supportive care. Plan of care discussed with RN and Dr. Parham. Napoleon Parham 08/29/22 1725: Diagnosis, Assessment Plan Additional comments: Patient was seen and examined at bedside, agree with above assessment and plan as documented by nurse practitioner. Will follow. at 1836 at 1732 RPT #:[id number] END OF REPORT [facility] 2022-08-28 08:03:00 [facility] Hospitalist Progress Note REPORT#:[id number] REPORT STATUS: Signed DATE:08/28/22 TIME: 802 PATIENT: KARMA ROWLAND UNIT #: [id number] ROOM/BED: [place] [address] : 63 AGE: 56 SEX: M ATTEND: Wilbert Ramires MD ADM AUTHOR: Wilbert Ramires MD * ALL edits or amendments must be made on the electronic/computer document * Subjective Chief complaint: AMS and right foot infection. s/p extensive debridement. (+) pain in left leg x3 days Review of Systems All systems rev neg: except as noted Objective General VS/I O: Vital Signs: Date Time Temp Pulse Resp B/P B/P Pulse O2 O2 Flow FiO2 Mean Ox Delivery Rate 08/28 644 87 14 115/60 82 94 04/06 0631 [...] 2100 85 13 142/66 95 96 04/05 5 86 14 154/73 105 97 04/05 2029 [...] 04/05 0845 88 17 152/73 105 98 08/27 0830 82 15 148/70 100 99 08/27 0815 83 14 127/66 91 100 24 hour I O ending at 0700: 08/28 0700 08/27 1900 Intake Total 13303.00 Output Total 48923 Balance 290.00 Intake, IV 160.00 Intake, Oral 1380 Intake, Other 82150 Number 2 Bowel Movements Output, Other 30420 Patient 74.9 kg Weight Weight Bed scale Measurement Method PATIENT WEIGHT: Weight (lb): 165 Weight (oz): 2.02 Weight (kg): 74.900 Medications: Active Meds + DC'd Last 24 Hrs Insulin Glargine (Lantus/Semglee) 15 UNIT BEDTIME SUBQ [...] INJECTION) 10 ML Calcium Gluconate/Sodium Chloride (Calcium Gluconate 1 GM/NS [...] 5000 UNITS/ML) 5,000 UNIT Q8HR SUBQ Physical Exam General appearance: alert, awake, oriented Head/Eyes: normocephalic ENT: moist mucosal membranes Neck: no JVD Cardiovascular: regular rate rhythm, no heave Respiratory: aerating well, clear to auscultation, symmetric expansion, no distress Abdomen: non-tender, normal bowel sounds, soft, no distention Genitourinary: no bladder distention Extremities: R foot in dressing Neuro/QUANTITATIVE ANALYST: alert, oriented X 3, normal speech Considered stroke alert: no Skin: no rash Psychiatry: normal affect, normal judgment/insight, normal mood Results Findings/Data: Laboratory Tests 08/28 [...] (Auto) (14.0 - 32.0 %) 8.2 L [place] % (Auto) (4.8 - 9.0 %) 4.1 L Eos % (Auto) (0.3 - 3.7 %) 0.4 Baso % (Auto) (0.0 - 2.0 %) 0.1 Neut # (Auto) (2.0 - 7.6 x10 3/uL) 11.92 H Lymph # (Auto) (1.0 - 3.8 x10 3/uL) 1.13 [place] # (Auto) (0.1 - 0.8 x10 3/uL) [...] poorly controlled severe gas gangrene, right foot/necrotizing fascitis MRSA bacteremia ERIKA severe hyponatremia likely due [...] and Zosyn - podiatry eval - d.w Nuvia Hernandez - likely will need debridement - [...] - will likely need wound vac and extermination inspector IV antibiotic therapy - d/w at bedside [...] as per ID Updated Urology on MRI results, Dr. Du will review images and discuss with family for possible prostate/seminal vesicle abscess Cont wound care as per Podiatry, may have debridement today BP and BS well controlled K+ high, repeat level Hgb 7.3 stable Discussed with at bedside 08/26/2022 - hgb low. will transfuse 2 units - d.w Dr. Jeffrey - patient has lost so much tissues [...] surgery - d/w at bedside at 0806 [facility] #:[id number] END OF REPORT [facility] 2022-08-27 20:10:00 [facility]) Podiatry Progress Note REPORT#:[id number] REPORT STATUS: Signed DATE:08/27/22 TIME: 2009 PATIENT: KARMA ROWLAND UNIT #: [id number] ROOM/BED: [place] [address] : 61 AGE: 56 SEX: M ATTEND: Wilbert Ramires MD ADM AUTHOR: Liam Jeffrey DPM * ALL edits or amendments must be made on the electronic/computer document * Subjective Chief complaint: seen at bedside,. family memebers next to him denies having any pain foot covered and protected and offloaded drainage noted serosang. increased warmth Patient reports: no confusion, no cough, no dizziness, no fever, no heartburn, no itching Comments: changes position of joan wraps left ankle to left foot Objective [...] 24 Hrs Insulin Glargine (Lantus/Semglee) 15 UNIT BEDTIME SUBQ [...] INJECTION) 10 ML Calcium Gluconate/Sodium Chloride (Calcium Gluconate 1 GM/NS [...] 5000 UNITS/ML) 5,000 UNIT Q8HR SUBQ I O: 24 hour I O ending at 0700: 04/05 0700 04/04 1900 Intake Total 98932.00 950.00 Output Total 57922 850 Balance -1845.00 100.00 Intake, IV 805.00 250.00 Intake, Oral 250 Intake, Other 9900 Intake, 700 Packed Cells Output, Other 9850 Output, Urine 2950 850 Patient 71.5 kg Weight Weight Bed scale Measurement Method Dietitian nutrition assessment The data set between the solid lines has been imported from the dietitian's assessment. BMI Calculated: 25.4 [...] (Auto) (14.0 - 32.0 %) 7.0 L [place] % (Auto) (4.8 - 9.0 %) 3.3 L Eos % (Auto) (0.3 - 3.7 %) 0.3 Baso % (Auto) (0.0 - 2.0 %) 0.1 Neut # (Auto) (2.0 - 7.6 x10 3/uL) 14.14 H Lymph # (Auto) (1.0 - 3.8 x10 3/uL) 1.11 [place] # (Auto) (0.1 - 0.8 x10 3/uL) [...] 3/uL) 0.00 Diagnosis, Assessment Plan Free Text A [...] accurate, it is of skin that was intact) 08/19 OR culture: MRSA blood cultures: MRSA Offloading boot ICU for now pulse lavage by physical therapy joan wrap compression left ankle MRI: osteo plan for BKA right with Dr. Leroy tomorrow at 2011 RPT #[id number] END OF REPORT [facility] 2022-08-27 18:19:00 [facility] ([facility]) Endocrinology Progress Note REPORT#:[id number] REPORT STATUS: Signed DATE:08/27/22 TIME: 1818 PATIENT: KARMA ROWLAND UNIT #: [id number] ROOM/BED: [place] [address] : 61 AGE: 56 SEX: M ATTEND: Wilbert Ramires MD ADM AUTHOR: Braxton Chapin MD * ALL edits or amendments must be made on the electronic/computer document * Subjective Patient reports: no complaints Objective General VS: Last Documented: Result Date Time Temp 36.7 08/27 1200 Pulse Ox 98 08/27 0445 B/P 138/68 08/27 544 B/P Mean 94 [...] INJECTION) 10 ML Calcium Gluconate/Sodium Chloride (Calcium Gluconate 1 GM/NS [...] 5000 UNITS/ML) 5,000 UNIT Q8HR SUBQ Physical Exam General appearance: alert, [...] (Auto) (14.0 - 32.0 %) 7.0 L [place] % (Auto) (4.8 - 9.0 %) 3.3 L Eos % (Auto) (0.3 - 3.7 %) 0.3 Baso % (Auto) (0.0 - 2.0 %) 0.1 Neut # (Auto) (2.0 - 7.6 x10 3/uL) 14.14 H Lymph # (Auto) (1.0 - 3.8 x10 3/uL) 1.11 [place] # (Auto) (0.1 - 0.8 x10 3/uL) [...] (Auto) (14.0 - 32.0 %) 7.4 L [place] % (Auto) (4.8 - 9.0 %) 3.9 L Eos % (Auto) (0.3 - 3.7 %) 0.5 Baso % (Auto) (0.0 - 2.0 %) 0.1 Neut # (Auto) (2.0 - 7.6 x10 3/uL) 15.49 H Lymph # (Auto) (1.0 - 3.8 x10 3/uL) 1.31 [place] # (Auto) (0.1 - 0.8 x10 3/uL) [...] pH (5.0 - 7.0) 5.0 Ur Specific [place] (1.005 - 1.030) 1.012 Urine Protein (NEGATIVE) [...] (Auto) (14.0 - 32.0 %) 8.1 L [place] % (Auto) (4.8 - 9.0 %) 4.3 L Eos % (Auto) (0.3 - 3.7 %) 0.5 Baso % (Auto) (0.0 - 2.0 %) 0.1 Neut # (Auto) (2.0 - 7.6 x10 3/uL) 15.44 H Lymph # (Auto) (1.0 - 3.8 x10 3/uL) 1.45 [place] # (Auto) (0.1 - 0.8 x10 3/uL) [...] (Auto) (14.0 - 32.0 %) 4.8 L [place] % (Auto) (4.8 - 9.0 %) 2.9 L Eos % (Auto) (0.3 - 3.7 %) 0.0 L Baso % (Auto) (0.0 - 2.0 %) 0.2 Neut # (Auto) (2.0 - 7.6 x10 3/uL) 19.90 H Lymph # (Auto) (1.0 - 3.8 x10 3/uL) 1.10 [place] # (Auto) (0.1 - 0.8 x10 3/uL) [...] (Auto) (14.0 - 32.0 %) 3.8 L [place] % (Auto) (4.8 - 9.0 %) 3.7 L Eos % (Auto) (0.3 - 3.7 %) 0.0 L Baso % (Auto) (0.0 - 2.0 %) 0.3 Neut # (Auto) (2.0 - 7.6 x10 3/uL) 17.97 H Lymph # (Auto) (1.0 - 3.8 x10 3/uL) 0.76 L [place] # (Auto) (0.1 - 0.8 x10 3/uL) [...] pH (5.0 - 7.0) 5.0 Ur Specific [place] (1.005 - 1.030) 1.013 Urine Protein (NEGATIVE) [...] 03/29 1458 Blood Culture - ORD BLOOD 08/190 Blood Culture - ORD BLOOD 08/19 1709 [...] (Auto) (14.0 - 32.0 %) 4.3 L [place] % (Auto) (4.8 - 9.0 %) 3.1 L Eos % (Auto) (0.3 - 3.7 %) 0.0 L Baso % (Auto) (0.0 - 2.0 %) 0.3 Neut # (Auto) (2.0 - 7.6 x10 3/uL) 19.17 H Lymph # (Auto) (1.0 - 3.8 x10 3/uL) 0.91 L [place] # (Auto) (0.1 - 0.8 x10 3/uL) [...] MRI is more sensitive for detecting osteomyelitis. Impression By: Ankur Ladd M.D. CAT SCAN - CT ABD PELVIS W/CONT 08/18 0339 Report Impression - Status: SIGNED Entered: 08/18/2022 0546 IMPRESSION: 3.3 cm hypodensity in the left posterior prostate or seminal vesicle. This could represent an abscess. Contrast-enhanced MRI of the pelvis would be helpful for further evaluation. No acute intra-abdominal findings otherwise. Impression By: [...] 1. 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 2. DKA 3. Cellulitis and gangrene of the right foot. 4. Sepsis 5. Altered mental status 6. High LFTs Blood sugar 285-294 mg/dL. HbA1c 13.4% White count 17.9 Sodium 121. Adjust insulin dose. Wound care and IV antibiotics. For wound debridement. at 1820 RPT #:[id number] END OF REPORT [facility] 2022-08-27 16:51:00 [facility] ([facility]) Orthopaedic Progress Note REPORT#:[id number] REPORT STATUS: Signed DATE:08/27/22 TIME: 165 PATIENT: KARMA ROWLAND UNIT #: [id number] ROOM/BED: [place] [address] : 61 AGE: 56 SEX: M ATTEND: Wilbert Ramires MD ADM AUTHOR: Nixon Leroy MD * ALL edits or amendments must be made on the electronic/computer document * Subjective Chief complaint: right foot/ankle infection HPI: 56 yo male evaluated at bedside. He is pending surgery tomorrow for a right below-knee amputation. Patient did receive 2 units of PRBCs for a low hemoglobin. He reports doing well. Family at bedside. Objective VS: Last Documented: Result Date Time [...] alert, awake, oriented Ankle-right: multiple open surgical incision to the medial, [...] (Auto) (14.0 - 32.0 %) 7.0 L [place] % (Auto) (4.8 - 9.0 %) 3.3 L Eos % (Auto) (0.3 - 3.7 %) 0.3 Baso % (Auto) (0.0 - 2.0 %) 0.1 Neut # (Auto) (2.0 - 7.6 x10 3/uL) 14.14 H Lymph # (Auto) (1.0 - 3.8 x10 3/uL) 1.11 [place] # (Auto) (0.1 - 0.8 x10 3/uL) [...] x10 3/uL) 0.00 Diagnosis, Assessment Plan Free text A P: 56 yo male with hx of DM and gas gangrene to right foot and ankle s/p I D. 1. N.p.o. after midnight. Plan for OR on 08/28/2022. 2. NWB RLE 3. Continue local wound care. 4. Continue antibiotics per ID recommendations. 5. DVT prophylaxis. 6. Elevate extremity when at rest, offload heels. 7. Type and screen. 8. Anesthesia preop evaluation 9. Plan is for right below-knee amputation. Discussed risk benefits alternative surgery. Risk include but not limited to pain, bleeding, damage to neurovascular structures, wound dehiscence, wound infection, need for procedures anesthetic complications. Benefits include infection source control. Alternatives include no surgery which is not indicated for this grossly affected right foot and ankle from gas gangrene. All question and concerns addressed. We will plan for surgery on 08/28/2022. at 1654 RPT #[id number] END OF REPORT [facility] 2022-08-27 15:20:00 [facility] ([facility]) Hospitalist Progress Note REPORT#:[id number] REPORT STATUS: Signed DATE:08/27/22 TIME: 1520 PATIENT: KARMA ROWLAND UNIT #: [id number] ROOM/BED: [facility] : 63 AGE: 56 SEX: M ATTEND: Wilbert Ramires MD ADM AUTHOR: Musa Enriquez MD * ALL edits or amendments must be made on the electronic/computer document * Subjective Chief complaint: AMS and [...] 12 138/63 91 100 04/04 1600 36.6 08/26 1600 85 12 170/76 109 100 08/26 1553 36.6 86 14 151/74 100 08/26 1549 36.6 85 14 151/74 100 08/26 1545 86 15 151/74 106 100 08/26 1530 86 31 168/71 102 98 24 hour I O ending at 0700: 04 0700 04 1900 Intake Total 14632.00 950.00 Output Total 70007 850 Balance -1845.00 100.00 Intake, IV 805.00 [...] INJECTION) 10 ML Calcium Gluconate/Sodium Chloride (Calcium Gluconate 1 GM/NS [...] 5000 UNITS/ML) 5,000 UNIT Q8HR SUBQ Physical Exam Head/Eyes: normocephalic ENT: moist mucosal membranes Neck: no JVD Cardiovascular: regular rate rhythm, no heave Respiratory: aerating well, clear to auscultation, symmetric expansion, no distress Abdomen: non-tender, normal bowel sounds, soft, no distention Genitourinary: no bladder distention Extremities: R foot in dressing Neuro/QUANTITATIVE ANALYST: alert, oriented X 3, normal speech Considered stroke alert: no Skin: no rash Psychiatry: normal affect, normal judgment/insight, normal mood Diagnosis, Assessment Plan Free Text DxA P Notes Free text DxA P notes: DKA DM 2, poorly controlled severe gas gangrene, right foot/necrotizing fascitis MRSA bacteremia ERIKA severe hyponatremia likely due [...] and Zosyn - podiatry eval - d.w Nuvia Hernandez - likely will need debridement - [...] - will likely need wound vac and usp IV antibiotic therapy - d/w at bedside [...] as per ID Updated Urology on MRI results, Dr. Du will review images and discuss with family for possible prostate/seminal vesicle abscess Cont wound care as per Podiatry, may have debridement today BP and BS well controlled K+ high, repeat level Hgb 7.3 stable Discussed with at bedside 08/26/2022 - hgb low. will transfuse 2 units - d.w Dr. Jeffrey - patient has lost so much tissues [...] with insulin DVT prophylaxis at 1522 RPT #[id number] END OF REPORT [facility] 2022-08-27 15:13:00 [facility] ([facility]) Infectious Dis. Progress Note REPORT#:[id number] REPORT STATUS: Signed DATE:08/27/22 TIME: 1513 PATIENT: KARMA ROWLAND UNIT #: [id number] ROOM/BED: [place] [address] : 61 AGE: 56 SEX: M ATTEND: Wilbert Ramires MD ADM AUTHOR: Merry Wolff MD * ALL edits or amendments must be made on the electronic/computer document * Subjective Chief complaint: Follow-up on MRSA bacteremia, right lower extremity necrotizing soft tissue infection. HPI: PT is [...] transrectal aspiration and unroofing of prostate abscess 4/4, aspiration cx growing GNR, pt is afebrile, WBC down to 15.9 from 17.7, Patient reports: Yes: pain controlled. No: cough, diarrhea, fever, headache, nausea, shortness of breath, vomiting. Portions of this section were scribed by Jill Quintero on 08/27/22 at 1513 Objective General VS/I O: Vital Signs Date Temp Pulse Resp B/P B/P Mean Pulse Ox FiO2 04/-05 97.8-98.2 78-124 9-31 119-175/55-107 83-123 95-100 Last Documented: Result Date Time Temp 98.1 04/ 1200 Pulse Ox 98 04/05 0545 B/P 138/68 04/05 0545 B/P Mean 94 04/05 0545 Pulse 83 04/05 0545 Resp 15 04/05 0545 O2 Delivery Room air 08/26 2100 O2 Flow Rate 6 /9 Vital Signs: Date Time Temp Pulse Resp B/P B/P Pulse O2 O2 Flow FiO2 Mean Ox Delivery Rate 04/ 1200 98.1 04/05 0800 98.0 04/05 0545 [...] 100 04/04 9 Simple 6 mask 04/04 2034 78 12 [...] 04/04 1745 86 12 155/89 118 99 04/ 1731 88 15 146/107 123 98 04/04 1715 86 15 152/75 107 99 04/04 1700 87 16 150/74 106 100 04/04 1645 85 14 164/75 108 100 04/04 1630 86 13 159/75 108 100 04/04 1615 84 12 134/61 88 99 04/04 1613 98.0 87 14 138/63 100 04/04 1611 86 12 138/63 91 100 04/04 1600 97.8 04/ 1600 85 12 170/76 109 100 04/04 1553 97.8 86 14 151/74 100 04/04 1549 97.8 85 14 151/74 100 04/04 1545 86 15 151/74 106 100 04/04 1530 86 31 168/71 102 98 24 hour I O ending at 0700: 08/27 0700 08/26 1900 Intake Total 11026.00 950.00 Output Total 74477 850 Balance -1845.00 100.00 Intake, IV 805.00 [...] no JVD Cardiovascular: normal heart sounds, regular rate rhythm, no murmur Respiratory: clear to auscultation, aerating well, symmetric expansion Abdomen: non-tender, soft, no distention Genitourinary: urinary catheter ( on CBI) Extremities: edema, RLE pitting edema noted Neuro/QUANTITATIVE ANALYST: alert, 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 Considered stroke alert: no Skin: lesions, no rash Psychiatry: normal affect, normal mood Results Findings/Data: Laboratory Tests 08/27 08/27 08/27 08/27 08/26 1147 0824 0506 6926 2041 Chemistry Sodium (134 - 147 mEq/L) [...] (3.4 - 5.0 g/dL) 1.30 L 08/26 1738 Chemistry POC Glucose (70 - 110 MG/DL) [...] (Auto) (14.0 - 32.0 %) 7.0 L [place] % (Auto) (4.8 - 9.0 %) 3.3 L Eos % (Auto) (0.3 - 3.7 %) 0.3 Baso % (Auto) (0.0 - 2.0 %) 0.1 Neut # (Auto) (2.0 - 7.6 x10 3/uL) 14.14 H Lymph # (Auto) (1.0 - 3.8 x10 3/uL) 1.11 [place] # (Auto) (0.1 - 0.8 x10 3/uL) [...] 08/27 08/27 08/27 08/27 08/26 1147 0824 0552 4117 2044 Chemistry Sodium (134 - 147 mEq/L) 137 [...] (Auto) (14.0 - 32.0 %) 7.0 L [place] % (Auto) (4.8 - 9.0 %) 3.3 L Eos % (Auto) (0.3 - 3.7 %) 0.3 Baso % (Auto) (0.0 - 2.0 %) 0.1 Neut # (Auto) (2.0 - 7.6 x10 3/uL) 14.14 H Lymph # (Auto) (1.0 - 3.8 x10 3/uL) 1.11 [place] # (Auto) (0.1 - 0.8 x10 3/uL) [...] (Auto) (14.0 - 32.0 %) 7.4 L [place] % (Auto) (4.8 - 9.0 %) 3.9 L Eos % (Auto) (0.3 - 3.7 %) 0.5 Baso % (Auto) (0.0 - 2.0 %) 0.1 Neut # (Auto) (2.0 - 7.6 x10 3/uL) 15.49 H Lymph # (Auto) (1.0 - 3.8 x10 3/uL) 1.31 [place] # (Auto) (0.1 - 0.8 x10 3/uL) [...] PRN 08/26 1929 DC IV 08/27 0524 Lidocaine HCl 0 [...] PRN 08/26 1929 DC IV 08/27 0524 Hydromorphone HCl 0.5 MG PACU Q5MIN PRN PRN 08/26 1929 DC IV 08/27 0524 Meperidine HCl 12.5 MG PACU ONCE PRN 08/26 1929 DC IV 08/27 0524 Morphine Sulfate 2 MG PACU Q10MIN PRN PRN 08/26 1929 DC IV 08/27 0524 Tramadol HCl 50 [...] 50 ML ONCE ONE 08/27 1230 DC 04/ Sodium Chloride IV 08/27 1239 1321 Sodium [...] Status Admin Dexamethasone Sodium 0 .STK-MED ONE 08/26 1920 DC Phosphate .ROUTE Gastrointestinal Drugs Sig/Jan Start time Last Medication Dose Route Stop Time Status Admin Ondansetron HCl 4 MG PACU ONCE PRN 08/26 1930 DC IV 08/27 0524 Ondansetron HCl 0 .STK-MED ONE 08/26 1920 [...] PRN 08/26 1930 DC LOCAL 08/28 523 Microbiology: 08/26 2216 ABSCESS: Wound Culture - RES GRAM NEGATIVE JAKOB 08/26 2216 ABSCESS: Anaerobic Culture - RES 08/26 2216 ABSCESS: Gram Stain - RES 08/25 104 [...] sets. -Repeat blood cultures 08/21/2022 are already positive for MRSA in 2 out of 2 sets, suggesting persistent high-grade bacteremia. -Wound culture also positive for MRSA -TTE 08/18/2022 negative for any obvious vegetations. -Went to the OR 08/19/2022 per podiatry for an I D. Plan: 08/25 -Discussed the possibility of amputation with patient and family at bedside -Recommend JIMENA. -Repeat blood cultures x2 again today. -Continue to repeat serial blood cultures till bacteremia clears. -D/C clindamycin and vancomycin. -start on DAptomycin and Teflaro -check urine cx Discussed with Dr. Du about MRI report 08/26 -plan for transrectal aspiration of abscess today -repeat blood cx are still (+)Ve; will repeat blood cx tomorrow -cont on daptomycin and Teflaro day #2 -Pt needs a JIMENA r/o endocarditis as pt has high grade persistent bacteremia -plan for Right BKA on 08/28 4 -s/p transrectal aspiration and unroofing of abscess; cx GNR; will follow - repeat blood cx today --cont on daptomycin and Teflaro day #3 -Pt needs a JIMENA r/o endocarditis as pt has high grade persistent bacteremia -plan for Right BKA on 08/28 Portions of this section were scribed by Jill Quintero on 08/27/22 at 1513 at 1813 RPT #:[id number] END OF REPORT [facility] 2022-08-27 10:19:00 [facility] ([facility]) Cardiology Progress Note REPORT#:[id number] REPORT STATUS: Signed DATE:08/27/22 TIME: 1019 PATIENT: KARMA ROWLAND UNIT #: [id number] ROOM/BED: [place] [address] : 61 AGE: 56 SEX: M ATTEND: Wilbert Ramires MD ADM AUTHOR: Rohit Benitez LOG ROPER * ALL edits or amendments must be made on the electronic/computer document * Rohit Benitez 08/27/22 1019: Subjective Chief complaint: foot infection Free Text Subj Notes Free Text Subj Notes: Patient seen and evaluated. Resting in bed, on continuous bladder irrigation. Denies chest pain or pressure. Telemetry sinus rhythm Objective General VS/I O: 24 hour I O ending at 0700: 08/27 0700 04 1900 Intake Total 49553.00 950.00 Output Total 17191 850 Balance -1845.00 100.00 Intake, IV 805.00 [...] 0 78 9 128/67 91 100 04/04 9 Simple 6 mask 04/04 2034 78 12 [...] 19 152/65 94 100 04/04 1200 98.1 04/ 1200 80 16 138/64 92 100 04/04 [...] (CKD) Sodium Chloride (SODIUM CHLORIDE 0.9%) 100 ML [...] 5000 UNITS/ML) 5,000 UNIT Q8HR SUBQ Physical Exam General appearance: alert, awake, oriented Neck: no bruit/NL carotids, no JVD Cardiovascular: CV assessment: abnormal S1/S2, regular rate and rhythm, no ectopy Respiratory: clear to auscultation, no distress Lower extremity: LE assessment: edema Neuro/QUANTITATIVE ANALYST: alert, oriented X 3 Considered stroke alert: no Wound/incision: Location: right foot Psychiatry: normal affect, normal judgment/insight, normal mood Results Findings/Data: Laboratory Tests 08/27 0533 0417 2041 1739 Chemistry Sodium (134 - 147 [...] - 110 MG/DL) 166 H Laboratory Tests 08/278 Hematology WBC (4.5 [...] (Auto) (14.0 - 32.0 %) 7.0 L [place] % (Auto) (4.8 - 9.0 %) 3.3 L Eos % (Auto) (0.3 - 3.7 %) 0.3 Baso % (Auto) (0.0 - 2.0 %) 0.1 Neut # (Auto) (2.0 - 7.6 x10 3/uL) 14.14 H Lymph # (Auto) (1.0 - 3.8 x10 3/uL) 1.11 [place] # (Auto) (0.1 - 0.8 x10 3/uL) [...] elevated blood sugar. Diagnosed with DKA and sepsis. 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 Known cardiac history of hypertension and hyperlipidemia. Denies prior history of CAD, CHF or arrhythmia. EKG abnormal, NSR with anterior infarct. Vital signs stable. No prior cardiac work-up. -Check echocardiogram -Monitor telemetry for arrhythmia -Monitor [...] Cleared from cardiac standpoint to proceed with planned surgery. Supportive care. Plan of care discussed with patient, RN and Dr. Parham. Napoleon Parham 08/28/22 0846: Diagnosis, Assessment Plan Additional comments: Patient was seen and examined at bedside, agree with above assessment and plan as documented by nurse practitioner. Will follow. at 1937 at 0849 RPT #:[id number] END OF REPORT [facility] 2022-08-26 20:26:00 [phone] [place] [address] PATIENT NAME: KARMA ROWLAND ADMIT DATE: 08/18/22 ACCOUNT NO: [id number] ROOM NO: [facility] AGE: 56 REPORT TYPE: OPERATIVE REPORT SEX: M ADMITTING PHYSICIAN:Wilbert Ramires MD ATTENDING PHYSICIAN:Wilbert Ramires MD OPERATION DATE: 08/26/2022 SURGEON: David Du MD SALES PROMOTION OFFICER: None. ANESTHESIA: General. PREOPERATIVE DIAGNOSIS: Prostate abscess. [...] signing informed consent, the patient was taken back to the procedure room where he underwent general anesthetic, IV antibiotics, put in the dorsal lithotomy position, prepped and draped [...] bladder, removed the resectoscope and placed a 22-[place] 3-way Camarena catheter over the wire, put 30 mL in the balloon. The patient tolerated the procedure well. There were no complications. He will be continued on continuous bladder irrigation. Dictated By: David Du MD Date Dictated: 08/26/2022 20:26:13 Date Transcribed: 08/26/2022 21:06:43 /[facility] PATIENT NAME: KARMA ROWLAND Receipt ID: [id number] Authenticated by David Du MD On 09/17/2022 06:53:50 PM at 0653 PATIENT NAME: KARMA ROWLAND [facility] 2022-08-26 20:04:00 [facility]) Podiatry Progress Note REPORT#:[id number] REPORT STATUS: Signed DATE:08/26/22 TIME: 2003 PATIENT: KARMA ROWLAND UNIT #: [id number] ROOM/BED: [place] [address] : 61 AGE: 56 SEX: M ATTEND: Wilbert Ramires MD ADM AUTHOR: Liam Jeffrey DPM * ALL edits or amendments must be made on the electronic/computer document * Subjective Chief complaint: seen at bedside,. family memebers next to him denies having any pain foot covered and protected and offloaded drainage noted serosang. increased warmth Patient reports: no diarrhea, no fever, no headache, no itching, no nausea Comments: pt in ICU many questions answered again today but not anything like yesterday Objective General VS: Last Documented: Result Date Time Pulse Ox 100 08/26 1914 B/P 152/72 08/26 1914 B/P Mean 105 08/26 1914 Pulse 87 08/26 1914 Resp 17 08/26 1914 Temp 36.8 08/26 184 O2 Delivery Room air 08/24 1899 O2 [...] (CKD) Sodium Chloride (SODIUM CHLORIDE 0.9%) 100 ML [...] 5000 UNITS/ML) 5,000 UNIT Q8HR SUBQ I O: 24 hour I O ending at 0700: 04/04 0700 04/03 1900 Intake Total 440.00 150.00 Output Total 750 725 Balance -310.00 -575.00 Intake, IV 200.00 150.00 Intake, Oral 240 Output, Urine 750 725 Dietitian nutrition assessment The data set between the solid lines has been imported from the dietitian's assessment. BMI Calculated: 25.8 [...] accurate, it is of skin that was intact) 08/19 OR culture: MRSA blood cultures: MRSA Offloading boot ICU for now pulse lavage by physical therapy joan wrap compression left ankle MRI: osteo pt and family ultimately decided on BKA right. plan BKA with Dr. Leroy thursday/ at 2014 RPT #:[id number] END OF REPORT [facility] 2022-08-26 17:30:00 [facility]) Endocrinology Progress Note REPORT#:[id number] REPORT STATUS: Signed DATE:08/26/22 TIME: 1730 PATIENT: KARMA ROWLAND UNIT #: [id number] ROOM[facility]BED: [facility] : 61 AGE: 56 SEX: M ATTEND: Wilbert Ramires MD ADM AUTHOR: Braxton Chapin MD * ALL edits or amendments must be made on the electronic/computer document * Subjective Patient reports: no complaints Objective General VS: Last Documented: Result Date Time Pulse Ox 100 08/26 161 B/P 138/63 08/26 1613 Temp 36.7 08/26 161 Pulse 87 08/26 161 Resp 14 08/26 161 B/P Mean 83 08/26 0600 O2 Delivery [...] (CKD) Sodium Chloride (SODIUM CHLORIDE 0.9%) 100 ML [...] 5000 UNITS/ML) 5,000 UNIT Q8HR SUBQ Physical Exam General appearance: alert, [...] (Auto) (14.0 - 32.0 %) 7.4 L [place] % (Auto) (4.8 - 9.0 %) 3.9 L Eos % (Auto) (0.3 - 3.7 %) 0.5 Baso % (Auto) (0.0 - 2.0 %) 0.1 Neut # (Auto) (2.0 - 7.6 x10 3/uL) 15.49 H Lymph # (Auto) (1.0 - 3.8 x10 3/uL) 1.31 [place] # (Auto) (0.1 - 0.8 x10 3/uL) [...] pH (5.0 - 7.0) 5.0 Ur Specific [place] (1.005 - 1.030) 1.012 Urine Protein (NEGATIVE) [...] (Auto) (14.0 - 32.0 %) 8.1 L [place] % (Auto) (4.8 - 9.0 %) 4.3 L Eos % (Auto) (0.3 - 3.7 %) 0.5 Baso % (Auto) (0.0 - 2.0 %) 0.1 Neut # (Auto) (2.0 - 7.6 x10 3/uL) 15.44 H Lymph # (Auto) (1.0 - 3.8 x10 3/uL) 1.45 [place] # (Auto) (0.1 - 0.8 x10 3/uL) [...] 08/20 08/20 08/20 08/20 08/20 1107 0756 0643 6444 6583 Chemistry Sodium (134 - 147 mEq/L) 137 [...] (Auto) (14.0 - 32.0 %) 4.8 L [place] % (Auto) (4.8 - 9.0 %) 2.9 L Eos % (Auto) (0.3 - 3.7 %) 0.0 L Baso % (Auto) (0.0 - 2.0 %) 0.2 Neut # (Auto) (2.0 - 7.6 x10 3/uL) 19.90 H Lymph # (Auto) (1.0 - 3.8 x10 3/uL) 1.10 [place] # (Auto) (0.1 - 0.8 x10 3/uL) [...] Hct (37.5 - 50.7 %) 21.8 L 03/28 08/19 172 1652 Chemistry Sodium (134 - [...] (Auto) (14.0 - 32.0 %) 3.8 L [place] % (Auto) (4.8 - 9.0 %) 3.7 L Eos % (Auto) (0.3 - 3.7 %) 0.0 L Baso % (Auto) (0.0 - 2.0 %) 0.3 Neut # (Auto) (2.0 - 7.6 x10 3/uL) 17.97 H Lymph # (Auto) (1.0 - 3.8 x10 3/uL) 0.76 L [place] # (Auto) (0.1 - 0.8 x10 3/uL) [...] pH (5.0 - 7.0) 5.0 Ur Specific [place] (1.005 - 1.030) 1.013 Urine Protein (NEGATIVE) [...] (Auto) (14.0 - 32.0 %) 4.3 L [place] % (Auto) (4.8 - 9.0 %) 3.1 L Eos % (Auto) (0.3 - 3.7 %) 0.0 L Baso % (Auto) (0.0 - 2.0 %) 0.3 Neut # (Auto) (2.0 - 7.6 x10 3/uL) 19.17 H Lymph # (Auto) (1.0 - 3.8 x10 3/uL) 0.91 L [place] # (Auto) (0.1 - 0.8 x10 3/uL) [...] ULTRASOUND - DUP LE ART UNI/LTD 08/19 3666 Report Impression - Status: SIGNED Entered: 08/19/2022 [...] MRI is more sensitive for detecting osteomyelitis. Impression By: Ankur Ladd M.D. CAT SCAN - CT ABD PELVIS W/CONT 08/18 0339 Report Impression - Status: SIGNED Entered: 08/18/2022 0546 IMPRESSION: 3.3 cm hypodensity in the left posterior prostate or seminal vesicle. This could represent an abscess. Contrast-enhanced MRI of the pelvis would be helpful for further evaluation. No acute intra-abdominal findings otherwise. Impression By: [...] 1. 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 2. DKA 3. Cellulitis and gangrene of the right foot. 4. Sepsis 5. Altered mental status 6. High LFTs Blood sugar 151-163. mg/dL.A gap 5 HbA1c 13.4% White count 17.9 Sodium 121. Adjust insulin dose. Wound care and IV antibiotics. For wound debridement. at 1731 RPT #:[id number] END OF REPORT [facility] 2022-08-26 15:50:00 [facility] Cardiology Progress Note REPORT#:[id number] REPORT STATUS: Signed DATE:08/26/22 TIME: 1550 PATIENT: KARMA ROWLAND UNIT #: [id number] RO[address] : 61 AGE: 56 SEX: M ATTEND: Wilbert Ramires MD ADM AUTHOR: Rohit Benitez LOG ROPER * ALL edits or amendments must be made on the electronic/computer document * Rohit Benitez 08/26/22 1550: Subjective [...] (CKD) Sodium Chloride (SODIUM CHLORIDE 0.9%) 100 ML [...] 5000 UNITS/ML) 5,000 UNIT Q8HR SUBQ Physical Exam General appearance: alert, awake, oriented Neck: no bruit/NL carotids, no JVD Cardiovascular: CV assessment: abnormal S1/S2, regular rate and rhythm, no ectopy Respiratory: clear to auscultation, no distress Lower extremity: LE assessment: edema Neuro/QUANTITATIVE ANALYST: alert, oriented X 3 Considered stroke alert: no Wound/incision: Location: right foot Psychiatry: normal affect, normal judgment/insight, normal mood Results Findings/Data: Laboratory Tests 08/2603 09429 1723 Chemistry Sodium (134 - 147 mEq/L) [...] - 5.0 g/dL) 1.30 L Laboratory Tests 08/260 Hematology WBC (4.5 - 11.0 x10 3/uL) [...] (Auto) (14.0 - 32.0 %) 7.4 L [place] % (Auto) (4.8 - 9.0 %) 3.9 L Eos % (Auto) (0.3 - 3.7 %) 0.5 Baso % (Auto) (0.0 - 2.0 %) 0.1 Neut # (Auto) (2.0 - 7.6 x10 3/uL) 15.49 H Lymph # (Auto) (1.0 - 3.8 x10 3/uL) 1.31 [place] # (Auto) (0.1 - 0.8 x10 3/uL) [...] elevated blood sugar. Diagnosed with DKA and sepsis. 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 Known cardiac history of hypertension and hyperlipidemia. Denies prior history of CAD, CHF or arrhythmia. EKG abnormal, NSR with anterior infarct. Vital signs stable. No prior cardiac work-up. -Check echocardiogram -Monitor telemetry for arrhythmia -Monitor [...] RN and Dr. Parham. Napoleon Parham 08/27/22 0826: Diagnosis, Assessment Plan Additional comments: Patient was seen and examined at bedside, agree with above assessment and plan as documented by nurse practitioner. Will follow. at 1832 at 0829 RPT #:[id number] END OF REPORT [facility] 2022-08-26 15:05:00 [facility] ([facility]) Infectious Dis. Progress Note REPORT#:[id number] REPORT STATUS: Signed DATE:08/26/22 TIME: 1505 PATIENT: KARMA ROWLAND UNIT #: [id number] ROOM/BED: [facility] : 61 AGE: 56 SEX: M ATTEND: Wilbert Ramires MD ADM AUTHOR: Merry Wolff MD * ALL edits or amendments must be made on the electronic/computer document * Subjective Chief complaint: Follow-up on MRSA bacteremia, right lower extremity necrotizing soft tissue infection. HPI: PT is [...] reports: Yes: pain controlled. No: cough, diarrhea, fever, headache, [...] no JVD Cardiovascular: normal heart sounds, regular rate rhythm, no murmur Respiratory: clear to auscultation, aerating well, symmetric expansion Abdomen: non-tender, soft, no distention Extremities: edema, RLE pitting edema noted Neuro/QUANTITATIVE ANALYST: alert, 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 Considered stroke alert: no Skin: lesions, no rash Psychiatry: normal affect, normal mood Results Findings/Data: Laboratory Tests 08/26 172 Chemistry Sodium (134 - 147 mEq/L) [...] (Auto) (14.0 - 32.0 %) 7.4 L [place] % (Auto) (4.8 - 9.0 %) 3.9 L Eos % (Auto) (0.3 - 3.7 %) 0.5 Baso % (Auto) (0.0 - 2.0 %) 0.1 Neut # (Auto) (2.0 - 7.6 x10 3/uL) 15.49 H Lymph # (Auto) (1.0 - 3.8 x10 3/uL) 1.31 [place] # (Auto) (0.1 - 0.8 x10 3/uL) [...] (Auto) (14.0 - 32.0 %) 7.4 L [place] % (Auto) (4.8 - 9.0 %) 3.9 L Eos % (Auto) (0.3 - 3.7 %) 0.5 Baso % (Auto) (0.0 - 2.0 %) 0.1 Neut # (Auto) (2.0 - 7.6 x10 3/uL) 15.49 H Lymph # (Auto) (1.0 - 3.8 x10 3/uL) 1.31 [place] # (Auto) (0.1 - 0.8 x10 3/uL) [...] (Man) (0.0 - 0.1 x10 3/uL) 0.00 04 0408/25 1111 1044 1044 0750 Chemistry Sodium (134 [...] (Auto) (14.0 - 32.0 %) 8.1 L [place] % (Auto) (4.8 - 9.0 %) 4.3 L Eos % (Auto) (0.3 - 3.7 %) 0.5 Baso % (Auto) (0.0 - 2.0 %) 0.1 Neut # (Auto) (2.0 - 7.6 x10 3/uL) 15.44 H Lymph # (Auto) (1.0 - 3.8 x10 3/uL) 1.45 [place] # (Auto) (0.1 - 0.8 x10 3/uL) [...] pH (5.0 - 7.0) 5.0 Ur Specific [place] (1.005 - 1.030) 1.012 Urine Protein (NEGATIVE) [...] DC .ROUTE Propofol 0 .STK-MED ONE 08/25 175 DC IV Lorazepam 1 MG ONCE PRN [...] Prophylaxis Lines: peripheral Portions of this section were scribed [...] sets. -Repeat blood cultures 08/21/2022 are already positive for MRSA in 2 out of 2 sets, suggesting persistent high-grade bacteremia. -Wound culture also positive for MRSA -TTE 08/18/2022 negative for any obvious vegetations. -Went to the OR 08/19/2022 per podiatry for an I D. Plan: 08/25 -Discussed the possibility of amputation with patient and family at bedside -Recommend JIMENA. -Repeat blood cultures x2 again today. -Continue to repeat serial blood cultures till bacteremia clears. -D/C clindamycin and vancomycin. -start on DAptomycin and Teflaro -check urine cx Discussed with Dr. Du about MRI report 08/26 -plan for transrectal aspiration of abscess today -repeat blood cx are still (+)Ve; will repeat blood cx tomorrow -cont on daptomycin and Teflaro day #2 -Pt needs a JIMENA r/o endocarditis as pt has high grade persistent bacteremia -plan for Right BKA on 08/28 Portions of this section were scribed by Jill Quintero on 08/26/22 at 1505 at 1812 RPT #:[id number] END OF REPORT [facility] 2022-08-26 10:10:00 [facility] ([facility]) Orthopaedic Consult Note REPORT#:[id number] REPORT STATUS: Signed DATE:08/26/22 TIME: 1010 PATIENT: KARMA ROWLAND UNIT #: [id number] ROOM/BED: [facility] : 61 AGE: 56 SEX: M ATTEND: Wilbert Ramires MD ADM AUTHOR: Nixon Leroy MD * ALL edits or amendments must be made on the electronic/computer document * History of Present Illness Time At Bedside )( Time at bedside: 1011 Requesting clinician: Dr. Jeffrey Reason for consult: right foot/ankle gas gangrene Chief complaint: right foot/ankle infection PCP: PCP: No Primary or Family Physician HPI: 56 yo male evaluated at bedside. Patient presented to ER on 08/18 with worsening confusion over the last several days as well as wounds and worsening presentation to the right foot. Dr. Jeffrey evaluated the patient and findings were significant for gas gangrene of the right foot and ankle. Patient went to OR for urgent debridement. He has been having wound care manage wound. Patient is at high risk for amputation from Infectious disease and podiatry standpoint. Called to evaluate and to discuss below knee amputation. History - Adult longitudinal Additional medical history: DM 2 since age 33 DM neuropathy HTN hyperlipidemia Additional surgical history: as above Additional family history: reviewed and non contributory Alcohol use: Denies EtOH use Drug use: Denies recreational drugs Smoking status for patients 13 years old or older: Former Smoker Other social history: Local resident, Good social support Allergies: Coded Allergies: No Known Allergies (03/23/11) Review of Systems All systems rev neg: except as marked (MSK-infection) Objective VS: Last Documented: Result Date Time Pulse Ox 99 04/04 0600 B/P 121/58 04/04 0600 B/P Mean 83 04/04 0600 Pulse 84 04/04 0600 Resp 19 04/04 0600 Temp 36.8 04/04 0400 O2 Delivery Room air / 1900 O2 Flow Rate 2 30 0800 PATIENT WEIGHT: Weight (lb): 160 Weight [...] (CKD) Sodium Chloride (SODIUM CHLORIDE 0.9%) 100 ML [...] 5000 UNITS/ML) 5,000 UNIT Q8HR SUBQ Physical Exam General appearance: alert, awake, oriented Ankle-right: multiple open surgical incision to the medial, [...] (Auto) (14.0 - 32.0 %) 7.4 L [place] % (Auto) (4.8 - 9.0 %) 3.9 L Eos % (Auto) (0.3 - 3.7 %) 0.5 Baso % (Auto) (0.0 - 2.0 %) 0.1 Neut # (Auto) (2.0 - 7.6 x10 3/uL) 15.49 H Lymph # (Auto) (1.0 - 3.8 x10 3/uL) 1.31 [place] # (Auto) (0.1 - 0.8 x10 3/uL) [...] pH (5.0 - 7.0) 5.0 Ur Specific Cohagen (1.005 - 1.030) 1.012 Urine Protein (NEGATIVE) [...] 5. DVT ppx. 6. Patient liason from [facility] consulted. 7. Anesthesia pre op eval. 8. Will plan for right BKA on . at 1026 RPT #:[id number] END OF REPORT [facility] 2022-08-26 08:12:00 [facility] ([facility]) Hospitalist Progress Note REPORT#:[id number] REPORT STATUS: Signed DATE:08/26/22 TIME: 08 PATIENT: KARMA ROWLAND UNIT #: [id number] ROOM/BED: [place] [address] : 61 AGE: 56 SEX: M ATTEND: Wilbert Ramires MD ADM AUTHOR: Wilbert Ramires MD * ALL edits or amendments must be made on the electronic/computer document * Subjective Chief complaint: AMS and right foot infection. s/p extensive debridement. No acute issues. Pain controlled. patient agreeable for BKA Review of Systems All systems rev neg: except as noted Objective General VS/I O: Vital Signs: Date Time Temp Pulse Resp B/P B/P Pulse O2 O2 Flow FiO2 Mean Ox Delivery Rate / 0600 84 19 121/58 83 99 04/04 [...] 04/03 1200 83 19 145/68 98 100 / 1100 80 13 120/61 85 99 04/03 1000 81 11 118/61 84 98 04/ 0900 86 16 118/68 90 100 24 hour I O ending at 0700: 04 0700 04/ 1900 Intake Total 440.00 150.00 [...] (CKD) Sodium Chloride (SODIUM CHLORIDE 0.9%) 100 ML [...] no heave Respiratory: aerating well, clear to auscultation, symmetric expansion, no distress Abdomen: non-tender, normal bowel sounds, soft, no distention Genitourinary: no bladder distention Extremities: R foot in dressing Neuro/QUANTITATIVE ANALYST: alert, oriented X 3, normal speech Considered stroke alert: no Skin: no rash Psychiatry: normal affect, normal judgment/insight, normal mood Results Findings/Data: Laboratory Tests 08/26 [...] (Auto) (14.0 - 32.0 %) 7.4 L [place] % (Auto) (4.8 - 9.0 %) 3.9 L Eos % (Auto) (0.3 - 3.7 %) 0.5 Baso % (Auto) (0.0 - 2.0 %) 0.1 Neut # (Auto) (2.0 - 7.6 x10 3/uL) 15.49 H Lymph # (Auto) (1.0 - 3.8 x10 3/uL) 1.31 [place] # (Auto) (0.1 - 0.8 x10 3/uL) [...] pH (5.0 - 7.0) 5.0 Ur Specific Cohagen (1.005 - 1.030) 1.012 Urine Protein (NEGATIVE) [...] poorly controlled severe gas gangrene, right foot/necrotizing fascitis MRSA bacteremia ERIKA severe hyponatremia likely due [...] and Zosyn - podiatry eval - d.w Nuvia Hernandez - likely will need debridement - [...] - will likely need wound vac and extermination inspector IV antibiotic therapy - d/w at bedside [...] as per ID Updated Urology on MRI results, Dr. Du will review images and discuss with family for possible prostate/seminal vesicle abscess Cont wound care as per Podiatry, may have debridement today BP and BS well controlled K+ high, repeat level Hgb 7.3 stable Discussed with at bedside 08/26/2022 - hgb low. will transfuse 2 units - d.w Dr. Jeffrey - patient has lost so much tissues in his foot that his potential for wound closure and usability of his foot is poor. Recommendations made to proceed with BKA - continue to monitor blood sugars - IV antibitoics - wound care - urology planning for aspiration of prostatic cyst seen on MRI. PSA normal - OOB at 0638 [facility] #:[id number] END OF REPORT [facility] 2022-08-25 21:29:00 [facility] ([facility]) Podiatry Progress Note REPORT#:[id number] REPORT STATUS: Signed DATE:08/25/22 TIME: 2128 PATIENT: KARMA ROWLAND UNIT #: [id number] ROOM[address]BED: [address] : [birth year] AGE: 56 SEX: M ATTEND: Wilbert Ramires MD ADM AUTHOR: Liam JeffreyM * ALL edits or amendments must be made on the electronic/computer document * Subjective Chief complaint: seen at [...] more family and relatives. events noted. Objective General VS: [...] (CKD) Sodium Chloride (SODIUM CHLORIDE 0.9%) 100 ML [...] imported from the dietitian's assessment. BMI Calculated: 25.8 Nutrition related diagnosis: Nutrition diagnosis details: Nutrition problem: Nutrition etiology: Nutrition signs and symptoms: Nutrition prescription: Dietitian name: Assessment completed: Physical Exam General appearance: alert, awake, oriented, pleasant, conversational, mental status normal Wound/incision: Location: Right [...] pH (5.0 - 7.0) 5.0 Ur Specific [place]agen (1.005 - 1.030) 1.012 Urine Protein (NEGATIVE) [...] (Auto) (14.0 - 32.0 %) 8.1 L [place] % (Auto) (4.8 - 9.0 %) 4.3 L Eos % (Auto) (0.3 - 3.7 %) 0.5 Baso % (Auto) (0.0 - 2.0 %) 0.1 Neut # (Auto) (2.0 - 7.6 x10 3/uL) 15.44 H Lymph # (Auto) (1.0 - 3.8 x10 3/uL) 1.45 [place] # (Auto) (0.1 - 0.8 x10 3/uL) [...] 3/uL) 0.00 Diagnosis, Assessment Plan Free Text A [...] accurate, it is of skin that was intact) 08/19 OR culture: MRSA blood cultures: MRSA Offloading boot ICU for now pulse lavage by physical therapy joan wrap compression left ankle MRI: osteo of entire hindfoot essentially met with pt and family. had on OR schedule. pt and family ultimately decided on BKA right. consulted dr. Leroy for BKA. spoke with him directly. at 2135 [facility] #:[id number] END OF REPORT [facility] 2022-08-25 18:38:00 [facility] Endocrinology Progress Note REPORT#:[id number] REPORT STATUS: Signed DATE:08/25/22 TIME: 1838 PATIENT: KARMA ROWLAND UNIT #: [id number] ROOM/BED: [place] [address] : 61 AGE: 56 SEX: M ATTEND: Wilbert Ramires MD ADM AUTHOR: Braxton Chapin MD * ALL edits or amendments must be made on the electronic/computer document * Subjective Patient reports: no complaints [...] (CKD) Sodium Chloride (SODIUM CHLORIDE 0.9%) 100 ML Daptomycin (CUBICIN 500MG) 700 MG Q24H IV (CKD) Sodium Chloride (SODIUM CHLORIDE 0.9%) 50 ML Vancomycin HCl (VANCOMYCIN HCL) 1,000 MG ONCE ONE [...] pH (5.0 - 7.0) 5.0 Ur Specific Cohagen (1.005 - 1.030) 1.012 Urine Protein (NEGATIVE) [...] (Auto) (14.0 - 32.0 %) 8.1 L [place] % (Auto) (4.8 - 9.0 %) 4.3 L Eos % (Auto) (0.3 - 3.7 %) 0.5 Baso % (Auto) (0.0 - 2.0 %) 0.1 Neut # (Auto) (2.0 - 7.6 x10 3/uL) 15.44 H Lymph # (Auto) (1.0 - 3.8 x10 3/uL) 1.45 [place] # (Auto) (0.1 - 0.8 x10 3/uL) [...] (Auto) (14.0 - 32.0 %) 4.8 L [place] % (Auto) (4.8 - 9.0 %) 2.9 L Eos % (Auto) (0.3 - 3.7 %) 0.0 L Baso % (Auto) (0.0 - 2.0 %) 0.2 Neut # (Auto) (2.0 - 7.6 x10 3/uL) 19.90 H Lymph # (Auto) (1.0 - 3.8 x10 3/uL) 1.10 [place] # (Auto) (0.1 - 0.8 x10 3/uL) [...] (Auto) (14.0 - 32.0 %) 3.8 L [place] % (Auto) (4.8 - 9.0 %) 3.7 L Eos % (Auto) (0.3 - 3.7 %) 0.0 L Baso % (Auto) (0.0 - 2.0 %) 0.3 Neut # (Auto) (2.0 - 7.6 x10 3/uL) 17.97 H Lymph # (Auto) (1.0 - 3.8 x10 3/uL) 0.76 L [place] # (Auto) (0.1 - 0.8 x10 3/uL) [...] pH (5.0 - 7.0) 5.0 Ur Specific Cohagen (1.005 - 1.030) 1.013 Urine Protein (NEGATIVE) [...] L 08/19 08/19 08/19 08/19 0805 0737 2637 6695 Chemistry Sodium (134 - 147 mEq/L) 130 [...] (Auto) (14.0 - 32.0 %) 4.3 L [place] % (Auto) (4.8 - 9.0 %) 3.1 L Eos % (Auto) (0.3 - 3.7 %) 0.0 L Baso % (Auto) (0.0 - 2.0 %) 0.3 Neut # (Auto) (2.0 - 7.6 x10 3/uL) 19.17 H Lymph # (Auto) (1.0 - 3.8 x10 3/uL) 0.91 L [place] # (Auto) (0.1 - 0.8 x10 3/uL) [...] - RES ABSCESS Recent Impressions: ULTRASOUND - [facility] [employer] 08/19 0950 Report Impression - Status: [...] 0815 Wound Culture - ORD FOOT 08/18 0207 Wound Culture - RECD FOOT 08/18 020 [...] MRI is more sensitive for detecting osteomyelitis. Impression By: [email or web address] - Jay Ladd M.D. CAT SCAN - CT ABD PELVIS W/CONT 08/18 0339 Report Impression - Status: SIGNED Entered: 08/18/2022 0513 IMPRESSION: 3.3 cm hypodensity in the left posterior prostate or seminal vesicle. This could represent an abscess. Contrast-enhanced MRI of the pelvis would be helpful for further evaluation. No acute intra-abdominal findings otherwise. Impression By: [...] 1. 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 2. DKA 3. Cellulitis and gangrene of the right foot. 4. Sepsis 5. Altered mental status 6. High LFTs Blood sugar 162-143 mg/dL.A gap 5 HbA1c 13.4% White count 17.9 Sodium 121. Adjust insulin dose. Wound care and IV antibiotics. at 1840 RPT #[id number] END OF REPORT [facility] 2022-08-25 16:09:00 [facility] ([facility]) Infectious Dis. Progress Note REPORT#:[id number] REPORT STATUS: Signed DATE:08/25/22 TIME: 1609 PATIENT: KARMA ROWLAND UNIT #: [id number] ROOM/BED: [place] [address] : 61 AGE: 56 SEX: M ATTEND: Wilbert Ramires MD ADM AUTHOR: Merry Wolff MD * ALL edits or amendments must be made on the electronic/computer document * Subjective Chief complaint: Follow-up on MRSA bacteremia, right lower extremity necrotizing soft tissue infection. HPI: PT is [...] Resp B/P B/P Mean Pulse Ox FiO2 04/02-08/25 97.9-98.6 91-107 14-23 117-162/56-74 80-106 98-100 Last Documented: Result Date Time Temp 98.6 04/03 0800 Pulse Ox 98 04/03 0400 B/P 138/64 04/03 0400 B/P Mean 88 04/03 0400 Pulse 91 04/03 0400 Resp 15 04/03 0400 O2 Delivery Room air 04/02 1900 O2 Flow Rate 2 30 0800 [...] 04/02 1700 96 15 132/64 91 99 24 [...] no JVD Cardiovascular: normal heart sounds, regular rate rhythm, no murmur Respiratory: clear to auscultation, aerating well, symmetric expansion Abdomen: non-tender, soft, no distention Extremities: edema, RLE pitting edema noted Neuro/QUANTITATIVE ANALYST: alert, 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 Considered stroke alert: [...] (Auto) (14.0 - 32.0 %) 8.1 L [place] % (Auto) (4.8 - 9.0 %) 4.3 L Eos % (Auto) (0.3 - 3.7 %) 0.5 Baso % (Auto) (0.0 - 2.0 %) 0.1 Neut # (Auto) (2.0 - 7.6 x10 3/uL) 15.44 H Lymph # (Auto) (1.0 - 3.8 x10 3/uL) 1.45 [place] # (Auto) (0.1 - 0.8 x10 3/uL) [...] pH (5.0 - 7.0) 5.0 Ur Specific Cohagen (1.005 - 1.030) 1.012 Urine Protein (NEGATIVE) [...] (Auto) (14.0 - 32.0 %) 8.1 L [place] % (Auto) (4.8 - 9.0 %) 4.3 L Eos % (Auto) (0.3 - 3.7 %) 0.5 Baso % (Auto) (0.0 - 2.0 %) 0.1 Neut # (Auto) (2.0 - 7.6 x10 3/uL) 15.44 H Lymph # (Auto) (1.0 - 3.8 x10 3/uL) 1.45 [place] # (Auto) (0.1 - 0.8 x10 3/uL) [...] (Man) (0.0 - 0.1 x10 3/uL) 0.00 Urines Urine Color (YEL/STRAW) YELLOW Urine Appearance (CLEAR) TURBID H Urine pH (5.0 - 7.0) 5.0 Ur Specific Cohagen (1.005 - 1.030) 1.012 Urine Protein (NEGATIVE) [...] (Auto) (14.0 - 32.0 %) 7.7 L [place] % (Auto) (4.8 - 9.0 %) 4.7 L Eos % (Auto) (0.3 - 3.7 %) 0.6 Baso % (Auto) (0.0 - 2.0 %) 0.1 Neut # (Auto) (2.0 - 7.6 x10 3/uL) 13.99 H Lymph # (Auto) (1.0 - 3.8 x10 3/uL) 1.25 [place] # (Auto) (0.1 - 0.8 x10 3/uL) [...] sets. -Repeat blood cultures 08/21/2022 are already positive for [...] -Continue to repeat serial blood cultures till bacteremia clears. -D/C clindamycin and vancomycin. -start on DAptomycin and Teflaro -check urine cx Discussed with Dr. Du about MRI report Portions of this section were scribed by Jill Quintero on 08/26/22 at 1510 at 0885 RPT #[id number] END OF REPORT [facility] 2022-08-25 15:40:00 [facility] ([facility]) Urology Progress Note REPORT#:[id number] REPORT STATUS: Signed DATE:08/25/22 TIME: 1540 PATIENT: KARMA ROWLAND UNIT #: [id number] ROOM/BED: [place] [address] : 61 AGE: 56 SEX: M ATTEND: Wilbert Ramires MD ADM AUTHOR: David Du MD * ALL edits or amendments must be made on the electronic/computer document * Subjective Patient reports: no complaints [...] (Auto) (14.0 - 32.0 %) 8.1 L [place] % (Auto) (4.8 - 9.0 %) 4.3 L Eos % (Auto) (0.3 - 3.7 %) 0.5 Baso % (Auto) (0.0 - 2.0 %) 0.1 Neut # (Auto) (2.0 - 7.6 x10 3/uL) 15.44 H Lymph # (Auto) (1.0 - 3.8 x10 3/uL) 1.45 [place] # (Auto) (0.1 - 0.8 x10 3/uL) [...] (Man) (0.0 - 0.1 x10 3/uL) 0.00 Urines Urine Color (YEL/STRAW) YELLOW Urine Appearance (CLEAR) TURBID H Urine pH (5.0 - 7.0) 5.0 Ur Specific Cohagen (1.005 - 1.030) 1.012 Urine Protein (NEGATIVE) [...] TRACE Urine Mucus (NONE SEEN /LPF) TRACE 08/25/ 0744 2130 1748 1700 Chemistry POC Glucose (70 - 110 MG/DL) 166 H 140 H 136 H Toxicology Random Vancomycin (mcg/mL) 9.6 Diagnosis, Assessment Plan Free Text A P: Concern for prostate hypodensity. PSA 0.9. prostate cancer or abscess would most likely elevate his PSA. MRI of pelvis shows cystic structure on left near SV and lateral border of prostate. Will attempt aspiration vs unroofing. May not be accessible vis the urethra at 1542 RPT #:[id number] END OF REPORT [facility] 2022-08-25 11:03:00 [facility] ([facility]) Hospitalist Progress Note REPORT#:[id number] REPORT STATUS: Signed DATE:08/25/22 TIME: 1103 PATIENT: KARMA ROWLAND UNIT #: [id number] ROOM/BED: [place] [address] : 61 AGE: 56 SEX: M ATTEND: Wilbert Ramires MD ADM AUTHOR: Meera Chavira DO * ALL edits or amendments must be made on the electronic/computer document * Subjective Chief complaint: AMS and right foot infection. s/p extensive debridement. No acute issues. Pain controlled. Discussed with family at bedside. Review of Systems All systems rev neg: except as noted Objective General VS/I O: Vital Signs: Date Time Temp Pulse Resp B/P B/P Pulse O2 O2 Flow FiO2 Mean Ox Delivery Rate 08/25 0400 97.9 91 15 138/64 88 98 / 0200 91 14 117/57 81 99 04/03 0100 93 16 120/56 81 98 04/03 0000 97 16 125/58 84 98 04/02 2300 100 15 120/58 81 98 04/ 2300 98.5 94 15 125/58 80 99 04/02 2200 107 21 162/74 106 100 04/02 2100 101 17 148/70 101 99 04/ 2000 99 23 130/60 86 98 04/ 1900 98.4 102 15 162/74 103 98 Room air 08/24 1900 97 18 117/58 83 100 04/ 1800 98 18 134/56 85 100 04/ 1700 96 15 132/64 91 99 04/ 1600 98.2 04/ 1600 96 18 134/60 87 99 04/ 1501 98 21 126/58 83 99 04/ [...] (CKD) Sodium Chloride (SODIUM CHLORIDE 0.9%) 100 ML Daptomycin (CUBICIN 500MG) 700 MG Q24H IV (CKD) Sodium Chloride (SODIUM CHLORIDE 0.9%) 50 ML Vancomycin HCl (VANCOMYCIN HCL) 1,000 MG ONCE ONE [...] Exam General appearance: no acute distress, no respiratory distress Head/Eyes: normocephalic ENT: moist mucosal membranes Neck: no JVD Cardiovascular: regular rate rhythm, no heave Respiratory: aerating well, clear to auscultation, symmetric expansion, no distress Abdomen: non-tender, normal bowel sounds, soft, no distention Genitourinary: no bladder distention Extremities: R foot in dressing Neuro/QUANTITATIVE ANALYST: alert, oriented X 3, normal speech Considered stroke alert: no Skin: no rash Psychiatry: normal affect, normal judgment/insight, normal mood Results Findings/Data: Laboratory Tests 08/25 [...] 5.0 g/dL) 1.30 L Laboratory Tests 08/25 075 Hematology WBC (4.5 - 11.0 x10 3/uL) [...] (Auto) (14.0 - 32.0 %) 8.1 L [place] % (Auto) (4.8 - 9.0 %) 4.3 L Eos % (Auto) (0.3 - 3.7 %) 0.5 Baso % (Auto) (0.0 - 2.0 %) 0.1 Neut # (Auto) (2.0 - 7.6 x10 3/uL) 15.44 H Lymph # (Auto) (1.0 - 3.8 x10 3/uL) 1.45 [place] # (Auto) (0.1 - 0.8 x10 3/uL) [...] poorly controlled severe gas gangrene, right foot/necrotizing fascitis MRSA bacteremia ERIKA severe hyponatremia likely due [...] and Zosyn - podiatry eval - d.w Nuvia Hernandez - likely will need debridement - [...] - will likely need wound vac and usp IV antibiotic therapy - d/w at bedside [...] as per ID Updated Urology on MRI results, Dr. Du will review images and discuss with family for possible prostate/seminal vesicle abscess Cont wound care as per Podiatry, may have debridement today BP and BS well controlled K+ high, repeat level Hgb 7.3 stable Discussed with at bedside at 1112 RPT #:[id number] END OF REPORT [facility] 2022-08-25 10:01:00 [facility] ([facility]) Cardiology Progress Note REPORT#:[id number] REPORT STATUS: Signed DATE:08/25/22 TIME: 1001 PATIENT: KARMA ROWLAND UNIT #: [id number] ROOM/BED: [place] [address] : 61 AGE: 56 SEX: M ATTEND: Wlibert Ramires MD ADM AUTHOR: Rohit Benitez LOG ROPER * ALL edits or amendments must be made on the electronic/computer document * Rohit Benitez 08/25/22 1001: Subjective Chief complaint: foot infection Free Text Subj Notes Free Text Subj Notes: No new symptoms, feeling well. Receiving wound care at bedside. Telemetry: Sinus rhythm Objective General [...] 0400 97.9 91 15 138/64 88 98 08/25 0200 91 14 117/57 81 99 04/03 [...] (CKD) Sodium Chloride (SODIUM CHLORIDE 0.9%) 100 ML Daptomycin (CUBICIN 500MG) 700 MG Q24H IV (CKD) Sodium Chloride (SODIUM CHLORIDE 0.9%) 50 ML Vancomycin HCl (VANCOMYCIN HCL) 1,000 MG ONCE ONE [...] no distress Lower extremity: LE assessment: edema Neuro/QUANTITATIVE ANALYST: alert, oriented X 3 Considered stroke alert: no Wound/incision: Location: right foot Psychiatry: normal affect, normal judgment/insight, normal mood Results Findings/Data: Laboratory Tests 08/25 [...] (Auto) (14.0 - 32.0 %) 8.1 L [place] % (Auto) (4.8 - 9.0 %) 4.3 L Eos % (Auto) (0.3 - 3.7 %) 0.5 Baso % (Auto) (0.0 - 2.0 %) 0.1 Neut # (Auto) (2.0 - 7.6 x10 3/uL) 15.44 H Lymph # (Auto) (1.0 - 3.8 x10 3/uL) 1.45 [place] # (Auto) (0.1 - 0.8 x10 3/uL) [...] elevated blood sugar. Diagnosed with DKA and sepsis. 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 Known cardiac history of hypertension and hyperlipidemia. Denies prior history of CAD, CHF or arrhythmia. EKG abnormal, NSR with anterior infarct. Vital signs stable. No prior cardiac work-up. -Check echocardiogram -Monitor telemetry for arrhythmia -Monitor [...] RN and Dr. Parham. Napoleon Parham 08/27/22 0826: Diagnosis, Assessment Plan Additional comments: Patient was seen and examined at bedside, agree with above assessment and plan as documented by nurse practitioner. Will follow. at 1733 at 0829 RPT #:[id number] END OF REPORT [facility] 2022-08-24 17:55:00 [facility] Podiatry Progress Note REPORT#:[id number] REPORT STATUS: Signed DATE:08/24/22 TIME: 175 PATIENT: KARMA ROWLAND UNIT #: [id number] ROOM/BED: [place] [address] : 61 AGE: 56 SEX: M ATTEND: Wilbert Ramires MD ADM AUTHOR: Rosa Pratt DPM * ALL edits or amendments must be made on the electronic/computer document * Subjective Chief complaint: seen at bedside,. family memebers next to him denies having any pain foot covered and protected and offloaded drainage noted serosang. increased warmth Objective General VS: Last Documented: Result Date Time Temp 36.7 08/24 1200 Pulse Ox 99 / 0601 B/P 121/62 08/24 0601 B/P Mean 83 08/24 0601 Pulse 100 04/ 0601 Resp 19 08/24 0601 O2 Delivery [...] 24 hour I O ending at 0700: 04/02 0700 04/01 1900 Intake Total 480 1610.00 Output Total 750 1950 Balance -270 -340.00 Intake, IV 300.00 Intake, Oral 480 960 Intake, 350 Packed Cells Number 5 Bowel Movements Output, Urine 750 1950 Dietitian nutrition assessment The data set between the solid lines has been imported from the dietitian's assessment. BMI Calculated: 25.8 [...] (Auto) (14.0 - 32.0 %) 7.7 L [place] % (Auto) (4.8 - 9.0 %) 4.7 L Eos % (Auto) (0.3 - 3.7 %) 0.6 Baso % (Auto) (0.0 - 2.0 %) 0.1 Neut # (Auto) (2.0 - 7.6 x10 3/uL) 13.99 H Lymph # (Auto) (1.0 - 3.8 x10 3/uL) 1.25 [place] # (Auto) (0.1 - 0.8 x10 3/uL) [...] x10 3/uL) 0.00 Toxicology Random Vancomycin (mcg/mL) 9.6 04/02 04/ 04/ 0307 2058 1930 Chemistry POC Glucose (70 - 110 [...] accurate, it is of skin that was intact) 08/19 OR culture: MRSA blood cultures: MRSA Offloading boot ICU for now pulse lavage by physical therapy MRI: osteo of entire hindfoot essentially discussed with Dr. Curtis..... extensive tissue loss and continued positive blood cultures.... if doesnt improve greatly in 1-2 days plan will be BKA. and sister and patient aware 08/24/22 seen at [facility] with family at risk for bka. continue wound care iv abx pain control d/w dr jeffrey he nhan follow tomorrow at 1823 RPT #:[id number] END OF REPORT [facility] 2022-08-24 16:19:00 [facility] ([facility]) Cardiology Progress Note REPORT#:[id number] REPORT STATUS: Signed DATE:08/24/22 TIME: 1618 PATIENT: KARMA ROWLAND UNIT #: [id number] ROOM/BED: [place] [address] : 61 AGE: 56 SEX: M ATTEND: Wilbert Ramires MD ADM AUTHOR: Rohit Benitez LOG ROPER * ALL edits or amendments must be made on the electronic/computer document * Rohit Benitez 08/24/22 1619: Subjective [...] Rate 08/24 1200 98.1 08/24 0800 98.0 08/24 0601 100 19 121/62 83 99 08/24 0500 93 15 123/73 93 100 04/02 0400 98.5 08/24 0400 86 15 111/58 81 97 04/ 0300 89 16 118/58 82 98 04/ 0200 92 13 131/63 90 99 04/ 0100 92 14 135/61 88 98 04/ 0038 92 04/ 0000 98.1 04/ 0000 95 19 137/61 93 99 04/ 2300 93 17 121/56 80 99 04 2200 94 17 127/63 89 97 04/ 2100 93 21 137/64 92 100 08/24 1999 98.2 08/24 1999 87 20 121/60 85 99 04 1901 95 21 124/60 84 99 04 [...] no distress Lower extremity: LE assessment: edema Neuro/QUANTITATIVE ANALYST: alert, oriented X 3 Considered stroke alert: no Wound/incision: Location: right foot Psychiatry: normal affect, normal judgment/insight, normal mood Results Findings/Data: Laboratory Tests 08/24 08/24 08/24 08/24 08/23 1200 0749 0630 0307 2058 Chemistry Sodium (134 - 147 mEq/L) [...] (Auto) (14.0 - 32.0 %) 7.7 L [place] % (Auto) (4.8 - 9.0 %) 4.7 L Eos % (Auto) (0.3 - 3.7 %) 0.6 Baso % (Auto) (0.0 - 2.0 %) 0.1 Neut # (Auto) (2.0 - 7.6 x10 3/uL) 13.99 H Lymph # (Auto) (1.0 - 3.8 x10 3/uL) 1.25 [place] # (Auto) (0.1 - 0.8 x10 3/uL) [...] - 0.1 x10 3/uL) 0.00 Laboratory Tests / 0630 Chemistry Magnesium (1.80 - 2.40 mg/dL) 1.80 Diagnosis, Assessment Plan Free Text DxA P Notes Free Text DxA P Notes: Impression: 1. Preop eval/cardiac clearance 2. Infected right foot gas gangrene 3. DKA 4. Sepsis 5. Hypertension 6. Anemia Recommendation: Patient presented for evaluation of altered mental status, weakness and elevated blood sugar. Diagnosed with DKA and sepsis. 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 Known cardiac history of hypertension and hyperlipidemia. Denies prior history of CAD, CHF or arrhythmia. EKG abnormal, NSR with anterior infarct. Vital signs stable. No prior cardiac work-up. -Check echocardiogram -Monitor telemetry for arrhythmia -Monitor [...] RN and Dr. Parham. Napoleon Parham 08/24/22 2216: Diagnosis, Assessment Plan Additional comments: Patient was seen and examined at bedside, agree with above assessment and plan as documented by nurse practitioner. Will follow. at 9804 at 2008 [facility] #:[id number] END OF REPORT [facility] 2022-08-24 15:41:00 [facility] ([facility]) Pharmacy Prog.Note-Vancomycin REPORT#:[id number] REPORT STATUS: Signed DATE:08/24/22 TIME: 1541 PATIENT: KARMA ROWLAND UNIT #: [id number] ROOM/BED: [facility] : 61 AGE: 56 SEX: M ATTEND: Wilbert Ramires MD ADM AUTHOR: Tolu Tobias [facility] * ALL edits or amendments must be made on the electronic/computer document * See Addendum Vancomycin Vancomycin Medication Therapy Goal: AUC 400-600 mg*hr/L Indication for treatment: Empiric (now confirmed foot infection and bacteremia) Weight: Actual weight (kg): 72.575 VS and I/O: Vital Signs Date Temp Pulse Resp B/P B/P Mean Pulse Ox FiO2 08/21-08/24 36.7-37.4 86-107 11-24 89-159/53-73 65-104 90-100 72 hours ending at 0700 08/24 1900 08/23 19008/22 0700 1900 Intake 480 1610.00 15 650.00 340.00 950.00 Total Output 750 3319 445 7265 500 650 Total Balance -270 -340.00 -585 -750.00 -160.00 300.00 Intake, IV 300.00 15 50.00 100.00 300.00 Intake, 480 960 600 240 650 Oral Intake, 350 Packed Cells Number 5 Bowel Movements Output, 750 6650 568 8111 500 650 Urine Patient 72.575 kg Weight 72 Hour I O Total 08/24 0708/22 0700 Intake Total 2090.00 665.00 1290.00 [...] consult Regimen: HPI: Karma Rowland is a 56 yo male with PMH of DM and HTN who presented with AMS, DKA, and a progressively worsening right foot infection. Patient was started empirically on antibiotics. Pharmacy is consulted to dose vancomycin. Requesting Provider: Andrew London MD Indication: Empiric Vancomycin AUC Goal: 400-600 mcg*hr/mL Concomitant Antibiotics: 08/24 A/P: Labs and Vitals: WBC 16.3 (slight decrease) Afebrile with a Tmax of 37.4C over the past 24 hours Renal Function: BUN/SCr 38/1.3 (decrease from 45/1.5) Urine Output with 2700 mL document over the past 24 hours Estimated CrCl 59 mL/min (using adjusted body weight) Microbiology: 08/22 Blood Cx x2: 2/4 Coag [...] Right foot X-ray: No convincing evidence for OM Dosing and Monitoring: -Random level this [...] 1542 Addendum 1: 08/24/221757 by Lenny Haynes [facility] 08/24 Update: Level @1700 = 9.6 mcg/ml, Ordered vanc 1gm IV x1 dose. at 1758 RPT #:[id number] END OF REPORT [facility] 2022-08-24 07:33:00 [facility] ([facility] Hospitalist Progress Note REPORT#:[id number] REPORT STATUS: Signed DATE:08/24/22 TIME: 732 PATIENT: KARMA ROWLAND UNIT #: [id number] ROOM/BED: [place] [address] : 61 AGE: 56 SEX: M ATTEND: Wilbert Ramires MD ADM AUTHOR: Wilbert Ramires MD * ALL edits or amendments must be made on the electronic/computer document * Subjective Chief complaint: AMS and [...] 08/24 0601 100 19 121/62 83 99 04/02 0500 93 15 123/73 93 100 04/02 0400 98.5 04/ 0400 86 15 111/58 81 97 04/02 0300 89 16 118/58 82 98 04/02 0200 92 13 131/63 90 99 04/02 0100 92 14 135/61 88 98 04/ 0038 92 04/02 0000 98.1 04/02 0000 95 19 137/61 93 99 04/01 2300 93 17 121/56 80 99 04/ 2200 94 17 127/63 89 97 04/ 2100 93 21 137/64 92 100 08/24 1999 98.2 04/01 2000 87 20 121/60 85 99 04 1901 95 21 124/60 84 99 04/ 1801 97 23 117/58 83 100 04/ 1700 97 22 119/56 80 98 04/ 1600 99.3 04/ 1600 95 18 129/60 86 98 04/ 1500 97 16 128/60 87 98 04/ 1400 100 16 126/58 84 97 04/ 1300 99 16 132/61 88 97 04/ 1200 98.9 04/ 1200 96 23 139/64 92 97 04/ 1100 94 13 141/65 94 98 04/01 1013 97 04/01 1000 97 13 137/63 90 04/ 0900 100 24 149/66 95 98 04/ [...] no heave Respiratory: aerating well, clear to auscultation, symmetric expansion, no distress Abdomen: non-tender, normal bowel sounds, soft, no distention Genitourinary: no bladder distention Extremities: right foot markedly swollen with violacous disoloratoin of dorsum and lateral area extending to ankle. There were blisters with some blisters were open. Neuro/QUANTITATIVE ANALYST: alert, oriented X 3, normal speech Considered stroke alert: no Skin: no rash Psychiatry: normal affect, normal judgment/insight, normal mood Results Findings/Data: Laboratory Tests 08/24 08/24 08/23 08/23 08/23 0630 0307 2058 1930 1620 Chemistry Sodium (134 [...] (Auto) (14.0 - 32.0 %) 7.7 L [place] % (Auto) (4.8 - 9.0 %) 4.7 L Eos % (Auto) (0.3 - 3.7 %) 0.6 Baso % (Auto) (0.0 - 2.0 %) 0.1 Neut # (Auto) (2.0 - 7.6 x10 3/uL) 13.99 H Lymph # (Auto) (1.0 - 3.8 x10 3/uL) 1.25 [place] # (Auto) (0.1 - 0.8 x10 3/uL) [...] poorly controlled severe gas gangrene, right foot/necrotizing fascitis MRSA bacteremia ERIKA severe hyponatremia likely due [...] and Zosyn - podiatry eval - d.w Nuvia Hernandez - likely will need debridement - [...] - will likely need wound vac and extermination inspector IV antibiotic therapy - d/w at bedside [...] - d.w at bedside at 0734 RPT #:[id number] END OF REPORT [facility] 2022-08-23 15:24:00 [facility] Pharmacy Prog.Note-Vancomycin REPORT#:[id number] REPORT STATUS: Signed DATE:08/23/22 TIME: 1524 PATIENT: KARMA ROWLAND UNIT #: [id number] ROOM/BED: [place] [address] : 63 AGE: 56 SEX: M ATTEND: Wilbert Ramires MD ADM AUTHOR: Tolu Tobias [facility] * ALL edits or amendments must be made on the electronic/computer document * Vancomycin Vancomycin Medication Therapy Goal: AUC 400-600 mg*hr/L Indication for treatment: Empiric (now confirmed foot infection and bacteremia) Weight: Actual weight (kg): 72.575 VS and I/O: Vital Signs Date Temp Pulse Resp B/P B/P Mean Pulse Ox FiO2 08/20-08/23 36.7-38.1 90-108 11-25 89-159/50-76 65-104 90-99 72 hours ending at 0700 08/23 07 1900 Intake 15 650.00 340.00 950.00 1290.00 1122.80 Total Output 600 1400 778 442 7355 Total Balance -585 -750.00 -160.00 300.00 1290.00 -527.20 Intake, IV 15 50.00 100.00 300.00 1190.00 1122.80 Intake, 600 240 650 100 Oral Output, 600 1400 021 765 9620 Urine Patient 72.575 kg 73 kg Weight Weight Bed scale Measuremen t Method 72 Hour I O Total 08/23 0708/21 07 Intake Total 665.00 1290.00 2412.80 Output Total 2000 1150 1650 Balance -1335.00 140.00 762.80 Labs: [...] H 19.5 H 19.0 H Microbiology: 08/22 173 BLOOD: Blood Culture - RES 08/22 173 BLOOD: Blood Culture Gram Stain - RES 08/22 172 BLOOD: Blood Culture - RES 08/22 172 BLOOD: Blood Culture Gram Stain - RES 08/22 427 BLOOD: Blood Culture - RES STAPH AUREUS,METHICILLIN RESIS 08/22 427 BLOOD: Blood Culture Gram Stain - RES 08/22 427 BLOOD: Blood Culture - RES STAPH AUREUS,METHICILLIN RESIS 08/22 427 BLOOD: Blood Culture Gram Stain - RES Treatment plan: consult Regimen: HPI: Karma Rowland is a 56 yo male [...] Estimated CrCl 51 mL/min (using adjusted body weight) Microbiology: 08/22 Blood Cx x2: 2/4 Coag [...] Right foot X-ray: No convincing evidence for OM Dosing and Monitoring: -Random level this AM was 15.3, appears patient has ERIKA -Random level anticipated to fall <12 tomorrow AM however repeat blood cultures from yesterday are once again positive -Considering persistent MRSA bacteremia, will go ahead and be aggressive with vancomycin dosing -Have ordered a one time dose of vancomycin 750 mg ( 10 mg/kg) -Will plan to dose by level for now Pharmacy will continue to monitor Thank you for this consult at 8365 RPT #:[id number] END OF REPORT [facility] 2022-08-23 09:47:00 [facility] ([facility]) Cardiology Progress Note REPORT#:[id number] REPORT STATUS: Signed DATE:08/23/22 TIME: 09 PATIENT: KARMA ROWLAND UNIT #: [id number] ROOM/BED: [facility] : 63 AGE: 56 SEX: M ATTEND: Wilbert Ramires MD ADM AUTHOR: Rohit Benitez [facility] * ALL edits or amendments must be made on the electronic/computer document * Rohit Benitez 08/23/22 0947: Subjective Chief complaint: foot infection Free Text Subj Notes Free Text Subj Notes: Patient seen and evaluated. Overall doing well, receiving wound care today. No new [...] 13 98 04/01 0000 99.0 Room air 04/ 0000 97 14 126/59 85 96 08/22 2300 98 18 121/62 86 99 08/22 2200 93 14 97/53 68 95 08/22 2100 97 15 111/60 79 97 08/23 1999 99.0 Room air 08/23 1999 100 17 [...] no distress Lower extremity: LE assessment: edema Neuro/QUANTITATIVE ANALYST: alert, oriented X 3 Considered stroke alert: no Wound/incision: Location: right foot Psychiatry: normal affect, normal judgment/insight, normal mood Results Findings/Data: Laboratory Tests 08/23 08/23 08/22 08/22 08/22 0812 0320 1942 1633 1148 Chemistry Sodium (134 [...] elevated blood sugar. Diagnosed with DKA and sepsis. 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 Known cardiac history of hypertension and hyperlipidemia. Denies prior history of CAD, CHF or arrhythmia. EKG abnormal, NSR with anterior infarct. Vital signs stable. No prior cardiac work-up. -Check echocardiogram -Monitor telemetry for arrhythmia -Monitor [...] RN and Dr. Parham. Napoleon Parham 08/24/22 2216: Diagnosis, Assessment Plan Additional comments: Patient was seen and examined at bedside, agree with above assessment and plan as documented by nurse practitioner. Will follow. at 1700 at 2257 RPT #:[id number] END OF REPORT [facility] 2022-08-23 08:08:00 [facility] Hospitalist Progress Note REPORT#:[id number] REPORT STATUS: Signed DATE:08/23/22 TIME: 08 PATIENT: KARMA ROWLAND UNIT #: [id number] ROOM/BED: [place] [address] : 61 AGE: 56 SEX: M ATTEND: Wilbert Ramires MD ADM AUTHOR: Wilbert Ramires MD * ALL edits or amendments must be made on the electronic/computer document * Subjective Chief complaint: AMS and [...] no heave Respiratory: aerating well, clear to auscultation, symmetric expansion, no distress Abdomen: non-tender, normal bowel sounds, soft, no distention Genitourinary: no bladder distention Extremities: right foot markedly swollen with violacous disoloratoin of dorsum and lateral area extending to ankle. There were blisters with some blisters were open. Neuro/QUANTITATIVE ANALYST: alert, oriented X 3, normal speech Considered stroke alert: no Skin: no rash Psychiatry: normal affect, normal judgment/insight, normal mood Results Findings/Data: Laboratory Tests 08/23 [...] poorly controlled severe gas gangrene, right foot/necrotizing fascitis MRSA bacteremia ERIKA severe hyponatremia likely due [...] and Zosyn - podiatry eval - d.w Nuvia Hernandez - likely will need debridement - [...] - will likely need wound vac and extermination inspector IV antibiotic therapy - d/w at bedside [...] floor transfer - d/w at 0809 RPT #:[id number] END OF REPORT [facility] 2022-08-22 21:25:00 [facility] ([facility]) Podiatry Progress Note REPORT#:[id number] REPORT STATUS: Signed DATE:08/22/22 TIME: 2124 PATIENT: KARMA ROWLAND UNIT #: [id number] ROOM[address]BED: [address] : [birth year] AGE: 56 SEX: M ATTEND: Wilbert Ramires MD ADM AUTHOR: Liam Jeffrey DPM * ALL edits or amendments must be made on the electronic/computer document * Subjective Chief complaint: my foot is red and swollen Patient reports: no diarrhea, no fatigue, no heartburn, no itching Comments: pt with little pain pt in ICU Objective General VS: Last Documented: Result Date Time O2 Delivery Room air 08/23 1999 Temp 37.2 08/23 1999 Pulse Ox 97 08/22 1800 B/P 105/59 08/22 1800 B/P Mean 78 08/22 1799 Pulse 93 08/22 1800 Resp 14 08/22 [...] imported from the dietitian's assessment. BMI Calculated: 25.8 [...] (Auto) (14.0 - 32.0 %) 9.0 L [place] % (Auto) (4.8 - 9.0 %) 4.8 Eos % (Auto) (0.3 - 3.7 %) 0.4 Baso % (Auto) (0.0 - 2.0 %) 0.1 Neut # (Auto) (2.0 - 7.6 x10 3/uL) 15.98 H Lymph # (Auto) (1.0 - 3.8 x10 3/uL) 1.76 [place] # (Auto) (0.1 - 0.8 x10 3/uL) [...] 3/uL) 0.00 Diagnosis, Assessment Plan Free Text A [...] accurate, it is of skin that was intact) 08/19 OR culture: MRSA blood cultures: MRSA Offloading boot ICU for now pulse lavage by physical therapy MRI: osteo of entire hindfoot essentially discussed with Dr. Curtis..... extensive tissue loss and continued positive blood cultures.... if doesnt improve greatly in 1-2 days plan will be BKA. and sister and patient aware at 2127 RPT #:[id number] END OF REPORT [facility] 2022-08-22 15:34:00 [facility] ([facility]) Infectious Dis. Progress Note REPORT#:[id number] REPORT STATUS: Signed DATE:08/22/22 TIME: 153 PATIENT: KARMA ROWLAND UNIT #: [id number] ROOM/BED: [place] [address] : 63 AGE: 56 SEX: M ATTEND: Wilbert Ramires MD ADM AUTHOR: Anthony Curtis MD * ALL edits or amendments must be made on the electronic/computer document * Subjective Chief complaint: Follow-up on MRSA bacteremia, right lower extremity necrotizing soft tissue infection. HPI: Patient is [...] 12 100/58 74 91 08/22 1999 99.4 08/21 2000 103 15 130/64 90 [...] Exam General appearance: alert, awake, no acute distress Wound/incision: Location: right foot currently dressed Cardiovascular: normal heart sounds, regular rate rhythm, no murmur Respiratory: clear to auscultation, aerating well, symmetric expansion Abdomen: non-tender, soft, no distention Extremities: edema, RLE pitting edema noted Neuro/QUANTITATIVE ANALYST: alert, 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 Considered stroke alert: [...] consultation is requested for antimicrobial recommendations. *MRSA bacteremia *Severe sepsis due to above *Right lower extremity necrotizing fasciitis *DKA *Prostatic abscess *ERIKA *Hyponatremia *Diabetic neuropathy *Diabetes mellitus type 2 *Hypertension -Fever curve improved; afebrile last 24 hours. -Leukocytosis of 19.5 on today's CBC noted. Overall, unchanged from the day before. -Hemoglobin A1c >14%. -Initial blood cultures from 08/18/2022 positive for MRSA in 2 out of 2 sets. -Repeat blood cultures 08/21/2022 are already positive for [...] high-grade MSSA bacteremia. Source is likely right foot /right lower extremity. Prostatic abscess is likely another source as well. -Discussed the possibility of amputation with patient and family at bedside today. -Would recommend unroofing of the prostatic abscess. -Recommend JIMENA. -Repeat blood cultures x2 again today. -Continue to repeat serial blood cultures till bacteremia clears. -Continue clindamycin x 7 days total. -Continue vancomycin. -Further recommendations to follow based upon clinical course. -Discussed with Dr. Jeffrey. CURRENT ANTIMICROBIALS: Clindamycin + vancomycin, started 08/18/2022 Day 5 at 1540 RPT #:[id number] END OF REPORT [facility] 2022-08-22 14:16:00 [facility] ([facility]) Pharmacy Prog.Note-Vancomycin REPORT#:[id number] REPORT STATUS: Signed DATE:08/22/22 TIME: 1416 PATIENT: KARMA ROWLAND UNIT #: [id number] ROOM[facility]BED: [facility] : 63 AGE: 56 SEX: M ATTEND: Wilbert Ramires MD ADM AUTHOR: Tolu Tobias [facility] * ALL edits or amendments must be made on the electronic/computer document * Vancomycin Vancomycin Medication Therapy Goal: AUC 400-600 mg*hr/L Indication for treatment: Empiric (now confirmed foot infection and bacteremia) Weight: Actual weight (kg): 72.575 VS and I/O: Vital Signs Date Temp Pulse Resp B/P B/P Mean Pulse Ox FiO2 08/19-08/22 36.5-38.1 66-108 10-27 70-161/44-79 54-113 90-100 72 hours ending at 0700 08/22 0708/21 19008/20 0700 1900 Intake 340.00 950.00 1290.00 1122.80 1412.10 2437.40 Total Output 507 224 3595 Total Balance -160.00 300.00 1290.00 -527.20 1412.10 2437.40 Intake, IV 100.00 300.00 1190.00 1122.80 1412.10 1837.40 Intake, 240 650 100 600 Oral Output, 086 111 1502 Urine Patient 72.575 kg 73 kg Weight Weight Bed scale Measuremen t Method 72 Hour I O Total 08/22 0708/21 0708/20 0700 Intake Total 1290.00 2412.80 3849.50 Output Total 1150 1650 Balance 140.00 762.80 3849.50 Labs: Laboratory Tests: 08/2230 2014 1315 2240 Toxicology Vancomycin Peak (30 [...] BLOOD: Blood Culture Gram Stain - RES 03/30 0428 BLOOD: Blood Culture - RES COAG POS STAPHYLOCOCCUS 08/21 0428 BLOOD: Blood Culture Gram Stain - RES 08/19 1710 BLOOD: Blood Culture - ORD 08/19 1710 BLOOD: Blood Culture - ORD 08/19 1622 URINE: Urine Culture - COMP Treatment plan: consult Regimen: HPI: Karma Rowland is a 56 yo male [...] Tmax of 38.0C over the past 24 hours Renal Function: BUN/SCr 37/1.3 (relatively unchanged) Urine Output with 1150 mL document over the past 24 hours Estimated CrCl 59 mL/min (using adjusted body weight) Microbiology: 08/21 Blood Cx x2: 2/4 Coag [...] Right foot X-ray: No convincing evidence for OM Dosing and Monitoring: -Patient was on [...] you for this consult at 1417 RPT #:[id number] END OF REPORT [facility] 2022-08-22 10:48:00 [facility] ([facility]) Cardiology Progress Note REPORT#:[id number] REPORT STATUS: Signed DATE:08/22/22 TIME: 104 PATIENT: KARMA ROWLAND UNIT #: [id number] ROOM/BED: [facility] : 63 AGE: 56 SEX: M ATTEND: Wilbert Ramires MD ADM AUTHOR: Rohit Benitez [facility] * ALL edits or amendments must be made on the electronic/computer document * Rohit Benitez 08/22/22 1048: Subjective Chief complaint: foot infection Free Text Subj Notes Free Text Subj Notes: Patient seen and evaluated. Resting in bed. Overall doing well without any new cardiac [...] 08/21 1443 103 13 121/58 80 94 03/30 1411 100 12 107/59 78 94 08/21 [...] no distress Lower extremity: LE assessment: edema Neuro/QUANTITATIVE ANALYST: alert, oriented X 3 Considered stroke alert: no Wound/incision: Location: right foot Psychiatry: normal affect, normal judgment/insight, normal mood Results Findings/Data: Laboratory Tests 08/22 08/22 08/21 08/21 08/21 0747 0442014 1622 1108 Chemistry Sodium (134 - 147 [...] (Auto) (14.0 - 32.0 %) 9.0 L [place] % (Auto) (4.8 - 9.0 %) 4.8 Eos % (Auto) (0.3 - 3.7 %) 0.4 Baso % (Auto) (0.0 - 2.0 %) 0.1 Neut # (Auto) (2.0 - 7.6 x10 3/uL) 15.98 H Lymph # (Auto) (1.0 - 3.8 x10 3/uL) 1.76 [place] # (Auto) (0.1 - 0.8 x10 3/uL) [...] bladder. Impression By: [email or web address] - Cezar Wakefield M.D. [facility] - MRI LOW EXT W/O CONT RT 08/22 2115 Report Impression - Status: SIGNED Entered: 08/21/2022 3766 Impression: 1. Large areas of deep ulceration [...] elevated blood sugar. Diagnosed with DKA and sepsis. 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 Known cardiac history of hypertension and hyperlipidemia. Denies prior history of CAD, CHF or arrhythmia. EKG abnormal, NSR with anterior infarct. Vital signs stable. No prior cardiac work-up. -Check echocardiogram -Monitor telemetry for arrhythmia -Monitor [...] RN and Dr. Parham. Napoleon Parham 08/24/22 2216: Diagnosis, Assessment Plan Additional comments: Patient was seen and examined at bedside, agree with above assessment and plan as documented by nurse practitioner. Will follow. at 1623 at 2257 RPT #:[id number] END OF REPORT [facility] 2022-08-22 09:43:00 [facility] Hospitalist Progress Note REPORT#:[id number] REPORT STATUS: Signed DATE:08/22/22 TIME: 942 PATIENT: KARMA ROWLAND UNIT #: [id number] ROOM/BED: [place] [address] : 61 AGE: 56 SEX: M ATTEND: Wilbert Ramires MD ADM AUTHOR: Wilbert Ramires MD * ALL edits or amendments must be made on the electronic/computer document * Subjective Chief complaint: AMS and [...] no heave Respiratory: aerating well, clear to auscultation, symmetric expansion, no distress Abdomen: non-tender, normal bowel sounds, soft, no distention Genitourinary: no bladder distention Extremities: right foot markedly swollen with violacous disoloratoin of dorsum and lateral area extending to ankle. There were blisters with some blisters were open. Neuro/QUANTITATIVE ANALYST: alert, oriented X 3, normal speech Considered stroke alert: no Skin: no rash Psychiatry: normal affect, normal judgment/insight, normal mood Results Findings/Data: Laboratory Tests 08/22 08/22 08/21 08/21 08/21 0747 0330 2014 1622 1108 Chemistry Sodium (134 - [...] (Auto) (14.0 - 32.0 %) 9.0 L [place] % (Auto) (4.8 - 9.0 %) 4.8 Eos % (Auto) (0.3 - 3.7 %) 0.4 Baso % (Auto) (0.0 - 2.0 %) 0.1 Neut # (Auto) (2.0 - 7.6 x10 3/uL) 15.98 H Lymph # (Auto) (1.0 - 3.8 x10 3/uL) 1.76 [place] # (Auto) (0.1 - 0.8 x10 3/uL) [...] poorly controlled severe gas gangrene, right foot/necrotizing fascitis MRSA bacteremia ERIKA severe hyponatremia likely due [...] and Zosyn - podiatry eval - d.w Nuvia Hernandez - likely will need debridement - [...] - will likely need wound vac and usp IV antibiotic therapy - d/w at bedside [...] - awaiting floor transfer at 0610 RPT #:[id number] END OF REPORT [facility] 2022-08-21 17:45:00 [facility] Podiatry Progress Note REPORT#:[id number] REPORT STATUS: Signed DATE:08/21/22 TIME: 1745 PATIENT: KARMA ROWLAND UNIT #: [id number] ROOM/BED: [place] [address] : 61 AGE: 56 SEX: M ATTEND: Wilbert Ramires MD ADM AUTHOR: Liam Jeffrey DPM * ALL edits or amendments must be made on the electronic/computer document * Subjective Chief complaint: my foot is red and swollen Patient reports: no cough, no dizziness, no fever, no itching, no nausea Objective General VS: [...] Sodium Chloride (SODIUM CHLORIDE 0.9%) 1,000 ML .[id number] IV (DC) Dextrose/Water (DEXTROSE 10% IN WATER) [...] imported from the dietitian's assessment. BMI Calculated: 26.0 Nutrition related diagnosis: Nutrition diagnosis details: Nutrition problem: Nutrition etiology: Nutrition signs and symptoms: Nutrition prescription: Dietitian name: Assessment completed: Physical Exam General appearance: alert, awake, oriented, pleasant, mental status normal Wound/incision: Location: Right foot [...] 40 MCG/ML) 30.7 08/21 08/20 08/20 0428 3780 2027 Chemistry Sodium (134 - 147 mEq/L) [...] accurate, it is of skin that was intact) 08/19 OR culture: CPS blood cultures: MRSA Offloading boot ICU for now pulse lavage by physical therapy at 1747 RPT #:[id number] END OF REPORT [facility] 2022-08-21 16:49:00 [facility] ([facility]) Pharmacy Prog.Note-Vancomycin REPORT#:[id number] REPORT STATUS: Signed DATE:08/21/22 TIME: 1648 PATIENT: KARMA ROWLAND UNIT #: [id number] ROOM/BED: [place] [address] : 61 AGE: 56 SEX: M ATTEND: Wilbert Ramires MD ADM AUTHOR: Tolu Tobias [facility] * ALL edits or amendments must be made on the electronic/computer document * See Addendum Vancomycin Vancomycin Medication Therapy Goal: AUC 400-600 mg*hr/L Indication for treatment: Empiric (now confirmed foot infection and bacteremia) Weight: Actual weight (kg): 72.575 VS and I/O: Vital Signs Date Temp Pulse Resp B/P B/P Mean Pulse Ox FiO2 08/18-08/21 36.5-38.8 66-109 10-30 70-161/44-79 54-113 90-100 72 hours ending at 0700 08/21 0700 08/20 1900 08/20 0700 08/19 1900 08/19 08/18 0700 1900 Intake 1290.00 1122.80 1412.10 2437.40 3418.00 Total Output 1650 1600 Total Balance 1290.00 -527.20 1412.10 2437.40 1818.00 Intake, IV 1190.00 1122.80 1412.10 1837.40 2818.00 Intake, 100 600 600 Oral Output, 1650 1600 Urine Patient 73 kg Weight Weight Bed scale Measuremen t Method 72 Hour I O Total 08/21 0700 [...] - 11.0 x10 3/uL) 21.3 H Microbiology: 08/22 427 BLOOD: Blood Culture - RECD 08/22 427 BLOOD: Blood Culture - RECD 08/19 1709 BLOOD: Blood Culture - ORD 08/19 1709 BLOOD: Blood Culture - ORD 08/19 1622 URINE: Urine Culture - COMP 08/19 121 ABSCESS: Wound Culture - RES STAPH AUREUS,METHICILLIN RESIS 08/19 121 ABSCESS: Anaerobic Culture - RES 08/19 121 ABSCESS: Gram Stain - RES Treatment plan: consult, cont current regimen/dose Regimen: HPI: Karma Rowland is a 56 yo male [...] Tmax of 38.1C over the past 24 hours Renal Function: BUN/SCr 37/1.2 (relatively unchanged) Urine Output with 1650 mL document over the past 24 hours Estimated CrCl 64 mL/min (using adjusted body weight) Microbiology: 08/21 Blood Cx x2: Pending 08/19 [...] Right foot X-ray: No convincing evidence for OM Dosing and Monitoring: -Patient is currently on a maintenance regimen of 1000 mg q12h -Planning for AUC monitoring, peak collected this afternoon, trough ordered to be drawn prior to tonight s dose Pharmacy will continue to monitor Thank you for this consult at 1650 Addendum 1: 08/21/222117 by Mario Yancey [facility] AUC resulted 705.85 mcg*hr/mL supratherapeutic. Dose has been held and cancelled. No new dose ordered. at 2118 RPT #:[id number] END OF REPORT [facility] 2022-08-21 14:21:00 [facility] ([facility]) Infectious Dis. Progress Note REPORT#:[id number] REPORT STATUS: Signed DATE:08/21/22 TIME: 1420 PATIENT: KARMA ROWLAND UNIT #: [id number] ROOM/BED: [place] [address] : 61 AGE: 56 SEX: M ATTEND: Wilbert Ramires MD ADM AUTHOR: Anthony Curtis MD * ALL edits or amendments must be made on the electronic/computer document * Subjective Chief complaint: Follow-up on MRSA bacteremia, right lower extremity necrotizing soft tissue infection. HPI: Patient just went down for an MRI and received Ativan prior to that. Currently sedated under influence of Ativan. Review of systems limited. No major overnight events. Objective General [...] 1200 98.7 08/21 1115 97 14 97 / 1100 105 21 99/56 73 / 1000 101 15 101/57 76 99 08/21 0916 100 15 111/62 76 98 / 0915 101 15 97 /30 0900 101 15 131/63 89 97 /30 0845 105 19 140/73 100 96 /30 0830 107 17 142/68 98 95 /30 0815 100 14 125/64 84 98 / 0800 100.4 08/21 0800 Nasal 2 cannula 08/21 0800 102 15 122/66 89 96 03/30 0745 102 13 138/69 97 96 /30 0730 104 13 144/73 103 96 /30 0715 104 15 143/71 101 96 0330 0700 104 14 140/74 101 96 / 0632 101 13 96 03/30 0630 101 [...] 03/29 2100 103 18 127/65 89 96 08/20 [...] Physical Exam General appearance: sleeping comfortably, no acute distress Wound/incision: Location: right foot currently dressed Cardiovascular: normal heart sounds, regular rate rhythm, no murmur Respiratory: clear to auscultation, aerating well, symmetric expansion Abdomen: non-tender, soft, no distention Extremities: edema, RLE pitting edema noted Neuro/QUANTITATIVE ANALYST: alert, 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 Considered stroke alert: [...] consultation is requested for antimicrobial recommendations. *MRSA bacteremia *Severe sepsis due to above *Right lower extremity necrotizing fasciitis *DKA *Prostatic mass versus abscess *ERIKA *Hyponatremia *Diabetic neuropathy *Diabetes mellitus type 2 *Hypertension -Continues to have temperature spike; Tmax 100.4 F. -Leukocytosis of 19.0 on today's CBC noted. Downtrending. -Hemoglobin A1c >14%. -Initial blood cultures from 08/18/2022 positive for MRSA in 2 out of 2 sets. -Repeat blood cultures obtained earlier this a.m. and currently pending x2. -Wound culture also positive for Staphylococcus aureus. -TTE 08/18/2022 negative for any obvious vegetations. -Went to the OR 08/19/2022 per podiatry for an I D. -Seen by urology for prostatic mass versus abscess. Plans for pelvic MRI noted. Currently pending. Plan: -Follow blood cultures x2 from today. -Continue to repeat serial blood cultures till bacteremia clears. -Continue clindamycin x5 to 7 days total. -Continue vancomycin. -If patient has persistent bacteremia, he will need a JIMENA. -Further recommendations to follow based upon clinical course. CURRENT ANTIMICROBIALS: Clindamycin + vancomycin, started 08/18/2022 Day 4 at 1425 RPT #:[id number] END OF REPORT [facility] 2022-08-21 09:33:00 [facility] ([facility]) Cardiology Progress Note REPORT#:[id number] REPORT STATUS: Signed DATE:08/21/22 TIME: 932 PATIENT: KARMA ROWLAND UNIT #: [id number] ROOM/BED: [facility]-1 : 63 AGE: 56 SEX: M ATTEND: Wilbert Ramires MD ADM AUTHOR: Rohit Benitez LOG ROPER * ALL edits or amendments must be made on the electronic/computer document * Rohit Benitez 08/21/22 0933: Subjective Chief complaint: foot infection Free Text Subj Notes Free Text Subj Notes: Patient seen and evaluated. Resting in bed, awake [...] 08/21 0530 100 14 125/70 93 96 30 0515 100 15 124/66 88 96 /30 0500 97 14 118/63 81 98 30 0445 97 13 111/60 81 98 /30 0430 94 16 96/52 69 97 /30 0415 93 14 106/62 78 97 /30 0400 98.5 /30 0400 92 14 93/57 71 97 /30 0345 90 14 93/56 71 98 /30 0330 92 14 114/60 79 97 /30 0315 92 16 112/62 80 98 03/30 [...] /29 2030 101 17 121/58 83 94 /29 2014 101 19 126/59 85 94 /29 2000 98.7 /1999 98 16 108/60 77 94 [...] 14 110/59 77 96 03/29 1600 98.0 03/29 1600 92 14 101/55 71 95 08/20 [...] Sodium Chloride (SODIUM CHLORIDE 0.9%) 1,000 ML .[id number] IV (DC) Dextrose/Water (DEXTROSE 10% IN WATER) [...] 2GM/SWFI 50ML) 50 ML ASDIR PRN IV ( DC) Magnesium Sulfate (MAGNESIUM SULFATE 4GM/SWFI 100ML) 100 [...] no distress Lower extremity: LE assessment: edema Neuro/QUANTITATIVE ANALYST: alert, oriented X 3 Considered stroke alert: no Wound/incision: Location: right foot Psychiatry: normal affect, normal judgment/insight, normal mood Results Findings/Data: Laboratory Tests 08/21 [...] - 5.0 g/dL) 1.90 L Laboratory Tests 08/218 Hematology WBC (4.5 - 11.0 x10 3/uL) [...] elevated blood sugar. Diagnosed with DKA and sepsis. 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 Known cardiac history of hypertension and hyperlipidemia. Denies prior history of CAD, CHF or arrhythmia. EKG abnormal, NSR with anterior infarct. Vital signs stable. No prior cardiac work-up. -Check echocardiogram -Monitor telemetry for arrhythmia -Monitor [...] patient, RN and Dr. Parham. Napoleon Parham 08/24/225: Diagnosis, Assessment Plan Additional comments: Patient was seen and examined at bedside, agree with above assessment and plan as documented by nurse practitioner. Will follow. at 1826 at 6457 RPT #:[id number] END OF REPORT [facility] 2022-08-21 08:31:00 [facility] ([facility] Hospitalist Progress Note REPORT#:[id number] REPORT STATUS: Signed DATE:08/21/22 TIME: 830 PATIENT: KARMA ROWLAND UNIT #: [id number] ROOM[address]BED: [address] : 61 AGE: 56 SEX: M ATTEND: Wilbert Ramires MD ADM AUTHOR: Wilbert Ramires MD * ALL edits or amendments must be made on the electronic/computer document * Subjective Chief complaint: AMS and right foot infection. doing ok. not much pain. s/p extensive debridement. off insulin drip. toelrating diet. no pain Review of Systems All systems rev neg: except as noted Objective General VS/I O: Vital Signs: Date Time Temp Pulse Resp B/P B/P Pulse O2 O2 Flow FiO2 Mean Ox Delivery Rate 03/30 0632 101 13 96 03/30 0630 [...] 03/29 2200 106 24 137/71 96 95 / 2145 108 23 131/67 91 92 08/20 2130 107 21 134/66 94 94 / 2115 104 21 140/67 97 95 / 2100 103 18 127/65 89 96 / 2045 103 18 131/63 91 93 08/20 2030 101 17 121/58 83 94 08/20 2014 101 19 126/59 85 94 08/21 1999 98.7 08/21 1999 98 16 108/60 77 94 / 1945 97 16 110/57 75 95 / 1930 96 15 95/51 65 95 08/20 1915 96 17 96/52 70 95 08/20 1900 97 15 103/55 71 97 08/20 1815 101 20 100/58 79 95 / 1800 101 22 122/62 87 94 / 1745 100 22 116/59 84 95 08/20 1730 98 20 99/51 69 93 08/20 1715 97 17 111/59 79 95 08/20 1700 96 14 112/59 80 95 / [...] / 1415 92 13 116/58 78 95 /29 1400 91 13 118/59 80 95 / 1345 90 14 124/60 81 95 / 1330 88 13 110/58 78 96 03/ 1315 88 15 113/56 79 95 03/29 1300 88 14 106/55 77 93 03/ 1245 95 23 132/64 92 97 03/29 1230 100 24 134/66 95 93 / 1215 100 21 152/78 108 95 / 1200 98.0 08/20 1200 94 19 145/74 102 96 08/20 1145 94 21 138/74 101 96 / 1130 93 19 153/77 108 96 08/20 [...] 24 Hrs Insulin Glargine (Lantus/Semglee) 25 UNIT BEDTIME SUBQ [...] Sodium Chloride (SODIUM CHLORIDE 0.9%) 1,000 ML .[id number] IV (DC) Dextrose/Water (DEXTROSE 10% IN WATER) [...] 2GM/SWFI 50ML) 50 ML ASDIR PRN IV ( DC) Magnesium Sulfate (MAGNESIUM SULFATE 4GM/SWFI 100ML) 100 [...] no heave Respiratory: aerating well, clear to auscultation, symmetric expansion, no distress Abdomen: non-tender, normal bowel sounds, soft, no distention Genitourinary: no bladder distention Extremities: right foot markedly swollen with violacous disoloratoin of dorsum and lateral area extending to ankle. There were blisters with some blisters were open. Neuro/QUANTITATIVE ANALYST: alert, oriented X 3, normal speech Considered stroke alert: no Skin: no rash Psychiatry: normal affect, normal judgment/insight, normal mood Results Findings/Data: Laboratory Tests 08/21 [...] poorly controlled severe gas gangrene, right foot/necrotizing fascitis MRSA bacteremia ERIKA severe hyponatremia likely due [...] and Zosyn - podiatry eval - d.w Nuvia Hernandez - likely will need debridement - [...] - will likely need wound vac and usp IV antibiotic therapy - d/w at bedside - PT/OT 08/21/2022 - continue IV antibitoics - wound care with pulse lavage. will likely need wound vac at some point - off insulin drip - tolerating diet. d/c IV fluids - pain controlled - awaiting MRI of his foot and pelvis - fall precautions - transfer to floor at 0833 RPT #:[id number] END OF REPORT [facility] 2022-08-20 21:55:00 [facility] ([facility]) Cardiology Progress Note REPORT#:[id number] REPORT STATUS: Signed DATE:08/20/22 TIME: 2154 PATIENT: KARMA ROWLAND UNIT #: [id number] ROOM/BED: [place] [address] : 61 AGE: 56 SEX: M ATTEND: Wilbert Ramires MD ADM AUTHOR: Napoleon Parham MD * ALL edits or amendments must be made on the electronic/computer document * Subjective Chief complaint: foot infection [...] 08/20 1230 100 24 134/66 95 93 03/29 1215 100 21 152/78 108 95 03/29 1200 98.0 03/29 1200 94 19 145/74 102 96 03/29 [...] 03/28 2255 71 12 94/55 71 99 08/190 69 14 86/54 66 98 08/195 70 13 93/57 70 98 08/20 2239 71 13 96/57 71 98 08/19 2234 77 11 101/58 73 99 08/190 70 11 87/52 65 98 08/19 2224 69 12 89/53 66 98 / 2220 71 13 88/54 67 97 /5 70 12 93/58 71 96 08/19 2209 69 11 89/55 67 97 08/19 2204 70 12 94/58 71 98 08/19 2200 72 13 105/61 78 98 PATIENT WEIGHT: Weight (lb): 171 Weight (oz): 4.79 Weight (kg): 77.700 Medications: Active Meds + DC'd Last 24 Hrs Insulin Glargine (Lantus/Semglee) 25 UNIT BEDTIME SUBQ [...] Sodium Chloride (SODIUM CHLORIDE 0.9%) 1,000 ML .[id number] IV Dextrose/Water (DEXTROSE 10% IN WATER) 250 [...] 2GM/SWFI 50ML) 50 ML ASDIR PRN IV ( DC) Magnesium Sulfate (MAGNESIUM SULFATE 4GM/SWFI 100ML) 100 [...] no distress Lower extremity: LE assessment: edema Neuro/QUANTITATIVE ANALYST: alert, oriented X 3 Considered stroke alert: [...] (Auto) (14.0 - 32.0 %) 4.8 L [place] % (Auto) (4.8 - 9.0 %) 2.9 L Eos % (Auto) (0.3 - 3.7 %) 0.0 L Baso % (Auto) (0.0 - 2.0 %) 0.2 Neut # (Auto) (2.0 - 7.6 x10 3/uL) 19.90 H Lymph # (Auto) (1.0 - 3.8 x10 3/uL) 1.10 [place] # (Auto) (0.1 - 0.8 x10 3/uL) [...] elevated blood sugar. Diagnosed with DKA and sepsis. 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 Known cardiac history of hypertension and hyperlipidemia. Denies prior history of CAD, CHF or arrhythmia. EKG abnormal, NSR with anterior infarct. Vital signs stable. No prior cardiac work-up. -Check echocardiogram -Monitor telemetry for arrhythmia -Monitor [...] supportive care, will follow. at 2257 RPT #:[id number] END OF REPORT [facility] 2022-08-20 20:11:00 [facility]) Podiatry Progress Note REPORT#:[id number] REPORT STATUS: Signed DATE:08/20/22 TIME: 2010 PATIENT: KARMA ROWLAND UNIT #: [id number] ROOM/BED: [place] [address] : 61 AGE: 56 SEX: M ATTEND: Wilbert Ramires MD ADM AUTHOR: Liam Jeffrey DPM * ALL edits or amendments must be made on the electronic/computer document * Subjective Chief complaint: my foot is red and swollen Nursing reports: no constipation, no dizziness, no fatigue, no headache, no itching Comments: per nursing.... blood cultures and abscess cultures show MRSA pt in ICU Objective General VS: Last Documented: Result Date Time Pulse Ox 95 08/20 181 B/P 100/58 08/20 181 B/P Mean 79 08/20 181 Pulse 101 08/20 181 Resp 20 08/20 181 Temp 36.7 08/20 1600 O2 Delivery Nasal cannula 08/19 141 O2 Flow Rate 2 08/19 1419 PATIENT WEIGHT: Weight (lb): Weight (oz): Weight (kg): 77.700 Medications: Active Meds + DC'd Last 24 Hrs Insulin Glargine (Lantus/Semglee) 25 UNIT BEDTIME SUBQ [...] Sodium Chloride (SODIUM CHLORIDE 0.9%) 1,000 ML .[id number] IV Dextrose/Water (DEXTROSE 10% IN WATER) 250 [...] 2GM/SWFI 50ML) 50 ML ASDIR PRN IV ( DC) Magnesium Sulfate (MAGNESIUM SULFATE 4GM/SWFI 100ML) 100 [...] imported from the dietitian's assessment. BMI Calculated: 27.6 [...] (Auto) (14.0 - 32.0 %) 4.8 L [place] % (Auto) (4.8 - 9.0 %) 2.9 L Eos % (Auto) (0.3 - 3.7 %) 0.0 L Baso % (Auto) (0.0 - 2.0 %) 0.2 Neut # (Auto) (2.0 - 7.6 x10 3/uL) 19.90 H Lymph # (Auto) (1.0 - 3.8 x10 3/uL) 1.10 [place] # (Auto) (0.1 - 0.8 x10 3/uL) [...] H 08/19 08/19 08/19 08/19 2310 2223 [id number] Chemistry Sodium (134 - 147 mEq/L) 132 [...] 1458 BLOOD: Blood Culture - ORD 08/19 171 BLOOD: Blood Culture - ORD 08/19 171 BLOOD: Blood Culture - ORD 08/19 1622 URINE: Urine Culture - RES 08/19 121 ABSCESS: Wound Culture - RES COAG POS STAPHYLOCOCCUS 08/19 121 ABSCESS: Anaerobic Culture - RES 08/19 121 ABSCESS: Gram Stain - RES 08/18 0915 FOOT: Wound Culture - ORD 08/18 206 FOOT: Wound Culture - RES STAPH AUREUS,METHICILLIN RESIS 08/18 206 THROAT: Group A Streptococcus Screen (VERONICA) - COMP 03/27 0207 THROAT: Streptococcus Culture - COMP 08/18 020 BLOOD: Blood Culture - COMP STAPH AUREUS,METHICILLIN RESIS 08/18 0203 BLOOD: Blood Culture Gram Stain - COMP 08/18 020 BLOOD: Blood Culture - COMP STAPH AUREUS,METHICILLIN RESIS 08/18 020 BLOOD: Blood Culture Gram Stain - COMP Recent Impressions-Last 72 Hrs RADIOLOGY - XR [...] MRI is more sensitive for detecting osteomyelitis. Impression By: Ankur Ladd M.D. CAT SCAN - CT ABD PELVIS W/CONT 08/18 0339 Report Impression - Status: SIGNED Entered: 08/18/2022 0546 IMPRESSION: 3.3 cm hypodensity in the left posterior prostate or seminal vesicle. This could represent an abscess. Contrast-enhanced MRI of the pelvis would be helpful for further evaluation. No acute intra-abdominal findings otherwise. Impression By: [...] Impression By: Jamel Dorantes M.D. ULTRASOUND - [employer] UNI/LTD 08/19 0950 Report Impression - Status: SIGNED Entered: 08/19/2022 1056 IMPRESSION: No sonographic evidence for flow-limiting stenosis in the right lower extremity arterial system. Impression By: [email or web address] - Abraham Ross M.D. Diagnosis, Assessment Plan [...] accurate, it is of skin that was intact) 08/19 OR culture: CPS blood cultures: MRSA Offloading boot ICU for now pulse lavage by physical therapy at 2017 RPT #:[id number] END OF REPORT [facility] 2022-08-20 19:36:00 [facility] ([facility]) Urology Progress Note REPORT#:[id number] REPORT STATUS: Signed DATE:08/20/22 TIME: 1935 PATIENT: KARMA ROWLAND UNIT #: [id number] ROOM/BED: [place] [address] : 61 AGE: 56 SEX: M ATTEND: Wilbert Ramires MD ADM AUTHOR: David Du MD * ALL edits or amendments must be made on the electronic/computer document * Subjective Patient reports: no complaints Objective General VS/I O: Last Documented: Result Date Time Pulse Ox 95 08/20 1814 B/P 100/58 08/20 1814 B/P Mean 79 08/20 1815 Pulse 101 [...] (Auto) (14.0 - 32.0 %) 4.8 L [place] % (Auto) (4.8 - 9.0 %) 2.9 L Eos % (Auto) (0.3 - 3.7 %) 0.0 L Baso % (Auto) (0.0 - 2.0 %) 0.2 Neut # (Auto) (2.0 - 7.6 x10 3/uL) 19.90 H Lymph # (Auto) (1.0 - 3.8 x10 3/uL) 1.10 [place] # (Auto) (0.1 - 0.8 x10 3/uL) [...] P: Concern for prostate hypodensity. PSA 0.9. prostate cancer or abscess would most likely elevate his PSA. Waiting on MRI of pelvis to be completed at 1938 RPT #:[id number] END OF REPORT [facility] 2022-08-20 16:36:00 [facility] ([facility] Critical Care Progress Note REPORT#:[id number] REPORT STATUS: Signed DATE:08/20/22 TIME: 1636 PATIENT: KARMA ROWLAND UNIT #: [id number] ROOM/BED: [place] [address] : 61 AGE: 56 SEX: M ATTEND: Wilbert Ramires MD ADM AUTHOR: Alma De La Rosa LOG ROPER * ALL edits or amendments must be made on the electronic/computer document * Subjective Chief complaint: RLE pain [...] Exam General appearance: alert, awake, oriented, no acute distress Head/eyes: atraumatic, clear cornea, normocephalic, PERRLA ENT: moist mucosal membranes, normal dentition, normal nose Neck: full range of motion, non-tender, no JVD, no masses or swelling Cardiovascular: decreased cap refill, tachycardia, regular rate and rhythm Respiratory: aerating well, clear to auscultation, symmetric expansion Abdomen: soft, non-tender, normal bowel sounds Extremities: decreased range of motion, edema, moves all Musculoskeletal decreased ROM Neuro/QUANTITATIVE ANALYST: alert, normal speech, 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, no sensory deficits Considered stroke alert: no Skin: abnormal color, abnormal temperature Wound/incision: Location: right foot Site condition: dressing clean dry, dressing intact Psychiatry: normal affect Results Findings/data: Laboratory Tests [...] BLOOD: Blood Culture Gram Stain - COMP 08/18 0203 BLOOD: Blood Culture - COMP STAPH AUREUS,METHICILLIN RESIS 08/18 0203 BLOOD: Blood Culture Gram Stain - COMP Results: labs reviewed, vital signs reviewed, vital signs stable, rhythm personally rev'd, x-ray personally reviewed, current med profile rev'd Diagnosis, Assessment Plan Free text A P: 56 year old male unknown PMH who presented 08/18 with fever, AMS. He was found to have labs consisent with DKA with AGAP 21 and glucose 700+. Problem list: * Acute post op pain * DKA * pseudohyponatremia * tachycardia/hypotension likely secondary to hypovolemia * ERIKA * microcytic anemia - iron [...] IVF, trend cr, serial chemistry, monitor I O Heme: trend HH, will need outpatient eval for etiology ID: blood cx + CONS. merrem/ clindamycin Endo: insulin protocol + lantus per moisture tester. gap closed. a1c>14. MUSK: s/p RLE debridement on 08/19 GI px: pepcid -- pt is anemic with no clear source of bleeding will cont for now DVT px: hep sq Dispo: ICU I have spent 25 minutes critical care time assessing, reviewing labs and imaging and discussing plan of care with the critical care payroll associate. at 1644 RPT #:[id number] END OF REPORT [facility] 2022-08-20 15:25:00 [facility] Endocrinology Progress Note REPORT#:[id number] REPORT STATUS: Signed DATE:08/20/22 TIME: 1525 PATIENT: KARMA ROWLAND UNIT #: [id number] ROOM/BED: [place] [address] : 61 AGE: 56 SEX: M ATTEND: Wilbert Ramires MD ADM AUTHOR: Braxton Chapin MD * ALL edits or amendments must be made on the electronic/computer document * Subjective Patient reports: no complaints [...] 24 Hrs Insulin Glargine (Lantus/Semglee) 25 UNIT BEDTIME SUBQ [...] Sodium Chloride (SODIUM CHLORIDE 0.9%) 1,000 ML .[id number] IV Dextrose/Water (DEXTROSE 10% IN WATER) 250 [...] (Auto) (14.0 - 32.0 %) 4.8 L [place] % (Auto) (4.8 - 9.0 %) 2.9 L Eos % (Auto) (0.3 - 3.7 %) 0.0 L Baso % (Auto) (0.0 - 2.0 %) 0.2 Neut # (Auto) (2.0 - 7.6 x10 3/uL) 19.90 H Lymph # (Auto) (1.0 - 3.8 x10 3/uL) 1.10 [place] # (Auto) (0.1 - 0.8 x10 3/uL) [...] (Auto) (14.0 - 32.0 %) 3.8 L [place] % (Auto) (4.8 - 9.0 %) 3.7 L Eos % (Auto) (0.3 - 3.7 %) 0.0 L Baso % (Auto) (0.0 - 2.0 %) 0.3 Neut # (Auto) (2.0 - 7.6 x10 3/uL) 17.97 H Lymph # (Auto) (1.0 - 3.8 x10 3/uL) 0.76 L [place] # (Auto) (0.1 - 0.8 x10 3/uL) [...] pH (5.0 - 7.0) 5.0 Ur Specific Cohagen (1.005 - 1.030) 1.013 Urine Protein (NEGATIVE) [...] (Auto) (14.0 - 32.0 %) 4.3 L [place] % (Auto) (4.8 - 9.0 %) 3.1 L Eos % (Auto) (0.3 - 3.7 %) 0.0 L Baso % (Auto) (0.0 - 2.0 %) 0.3 Neut # (Auto) (2.0 - 7.6 x10 3/uL) 19.17 H Lymph # (Auto) (1.0 - 3.8 x10 3/uL) 0.91 L [place] # (Auto) (0.1 - 0.8 x10 3/uL) [...] 121 Wound Culture - RES ABSCESS 08/19 121 Anaerobic Culture - RES ABSCESS 08/19 1209 Gram Stain - RES ABSCESS Recent Impressions: ULTRASOUND - [place] [employer] UNI/LTD 08/19 0950 Report Impression - Status: [...] MRI is more sensitive for detecting osteomyelitis. Impression By: Ankur Ladd M.D. CAT SCAN - CT ABD PELVIS W/CONT 08/18 0339 Report Impression - Status: SIGNED Entered: 08/18/2022 0546 IMPRESSION: 3.3 cm hypodensity in the left posterior prostate or seminal vesicle. This could represent an abscess. Contrast-enhanced MRI of the pelvis would be helpful for further evaluation. No acute intra-abdominal findings otherwise. Impression By: [...] 1. 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 2. DKA 3. Cellulitis and gangrene of the right foot. 4. Sepsis 5. Altered mental status 6. High LFTs Blood sugar 212-173 mg/dL.A gap 5 HbA1c 13.4% White count 26.5 Sodium 121. Adjust insulin drip settings Increase mouth feedings Wound care and IV antibiotics. at 1526 RPT #:[id number] END OF REPORT [facility] 2022-08-20 14:54:00 [facility] ([facility]) Infectious Dis. Progress Note REPORT#:[id number] REPORT STATUS: Signed DATE:08/20/22 TIME: 1454 PATIENT: KARMA ROWLAND UNIT #: [id number] RO[address]BED: [address] : 61 AGE: 56 SEX: M ATTEND: Wilbert Ramires MD ADM AUTHOR: Anthony Curtis MD * ALL edits or amendments must be made on the electronic/computer document * Subjective Chief complaint: Follow-up on MRSA bacteremia, right lower extremity necrotizing soft tissue infection. HPI: Patient reports feeling better subjectively. Denies acute or [...] 08/20 0615 85 21 141/63 90 95 03/29 [...] 03/28 1705 75 15 77/49 59 97 / 1700 75 16 78/49 59 98 / 1655 75 16 70/47 55 97 08/19 1650 75 17 77/50 58 97 08/19 1645 75 17 75/49 58 97 / 1640 75 16 75/49 57 97 / 1635 75 16 79/46 58 96 / 1630 75 15 76/51 59 96 / 1625 75 16 75/52 60 96 / [...] Exam General appearance: alert, awake, no acute distress Wound/incision: Location: right foot currently dressed Cardiovascular: normal heart sounds, regular rate rhythm, no murmur Respiratory: clear to auscultation, aerating well, symmetric expansion Abdomen: non-tender, soft, no distention Extremities: edema, RLE pitting edema noted Neuro/QUANTITATIVE ANALYST: alert, 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 Considered stroke alert: [...] consultation is requested for antimicrobial recommendations. *MRSA bacteremia *Severe sepsis [...] -Continue to repeat serial blood cultures till bacteremia clears. -Discontinue meropenem. -Continue clindamycin x5 to 7 days total. -Continue vancomycin. -If patient has persistent bacteremia, he might need a JIMENA. -Further recommendations to follow based upon clinical course. CURRENT ANTIMICROBIALS: Clindamycin + vancomycin, started 08/18/2022 Day 3 at 1457 RPT #:[id number] END OF REPORT [facility] 2022-08-20 13:23:00 [facility] General Surgery Progress Note REPORT#:[id number] REPORT STATUS: Signed DATE:08/20/22 TIME: 1323 PATIENT: KARMA ROWLAND UNIT #: [id number] ROOM/BED: [facility] : 61 AGE: 56 SEX: M ATTEND: Wilbert Ramires MD ADM AUTHOR: Forrest Oswald MD * ALL edits or amendments must be made on the electronic/computer document * Subjective Chief complaint: postop HPI: Pt is doing well. No complaints. Right foot is much better. Denies any leg pain. Patient reports: Yes: feeling better, flatus, pain controlled, tolerating diet. No: complaints, abdominal pain, ambulating, bowel movement, chest pain, constipation, diarrhea, fever, incisional pain, nausea, pain, shortness of breath, vomiting. Review of Systems Constitutional: Denies: chills, fatigue, fever, generalized weakness, lethargy, malaise, recent wt loss, other. Skin: Denies: abrasion, bruising, contusion, diaphoresis, ecchymosis, itching, laceration, rash, swelling, other. Allergy/Immun: Denies: allergic reaction, anaphylaxis, hives, itching, rhinorrhea, sneezing, other. Eyes: Denies: redness, discharge, visual loss/blurred, itching, diplopia, eye pain, photophobia, swelling, other. ENT: Denies: ear drainage, ear ringing, earache, hearing loss, mouth pain, nasal congestion, nose bleeding, sinus problem, sore throat, throat pain, throat swelling, tongue pain, tongue swelling, toothache, voice change, other. Respiratory: Denies: OVIEDO (dyspnea on exertion), hemoptysis, non productive cough, parox nocturnal dyspnea, pleurisy, pleuritic pain, pneumonia, productive cough (sputum ), SOB, wheezing, other. Cardiovascular: Denies: chest pain, OVIEDO (dyspnea on exertion), edema, orthopnea, palpitations, parox nocturnal dyspnea, other. GI: Denies: abdominal pain, anorexia, constipation, diarrhea, dysphagia, GERD, hematemesis, hematochezia, hiatal hernia, melena, nausea, rectal pain, vomiting, other. : Denies: dysuria, flank pain, frequency, hematuria, nocturia, penile discharge, penile lesion, testicular pain, testicular swelling, urgency, urinary retention, other. Objective [...] 24 Hrs Insulin Glargine (Lantus/Semglee) 25 UNIT BEDTIME SUBQ [...] Sodium Chloride (SODIUM CHLORIDE 0.9%) 1,000 ML .[id number] IV Dextrose/Water (DEXTROSE 10% IN WATER) 250 [...] imported from the dietitian's assessment. BMI Calculated: 27.6 Nutrition related diagnosis: Nutrition diagnosis details: Nutrition problem: Nutrition etiology: Nutrition signs and symptoms: Nutrition prescription: Dietitian name: Assessment completed: Physical Exam General appearance: alert, awake, oriented, no acute distress, pleasant, conversational, mental status normal, no respiratory distress Wound/incision: Location: right foot. Dressing in place. Nontender along the lower leg and calf. HEENT: atraumatic, normocephalic Neck: supple/no meningismus Cardiovascular: regular rate and rhythm Chest: normal appearance Respiratory: aerating well Abdomen: non-tender, soft, no distention, no guarding Extremities: moves all, right foot pain. dressing in place. Neuro/QUANTITATIVE ANALYST: alert, oriented x 3, CNII-XII intact, normal speech Considered stroke alert: no Skin: normal color, normal temperature, normal turgor Psychiatry: normal affect, normal judgment/insight, normal mood Results Findings/Data: Laboratory Tests 08/20/22 [...] 08/19 08/19 08/19 2223 2131 2014 1727 1652 Chemistry Sodium (134 - [...] - 32.0 %) 4.8 L 3.8 L [place] % (Auto) (4.8 - 9.0 %) 2.9 L 3.7 L Eos % (Auto) (0.3 - 3.7 %) 0.0 L 0.0 L Baso % (Auto) (0.0 - 2.0 %) 0.2 0.3 Neut # (Auto) (2.0 - 7.6 x10 3/uL) 19.90 H 17.97 H Lymph # (Auto) (1.0 - 3.8 x10 3/uL) 1.10 0.76 L [place] # (Auto) (0.1 - 0.8 x10 3/uL) [...] pH (5.0 - 7.0) 5.0 Ur Specific Cohagen (1.005 - 1.030) 1.013 Urine Protein (NEGATIVE) [...] surgery. Continue current care. at 1325 RPT #[id number] END OF REPORT [facility] 2022-08-20 10:53:00 [facility] Hospitalist Progress Note REPORT#:[id number] REPORT STATUS: Signed DATE:08/20/22 TIME: 1053 PATIENT: KARMA ROWLAND UNIT #: [id number] ROOM/BED: [address] : 61 AGE: 56 SEX: M ATTEND: Wilbert Ramires MD ADM AUTHOR: Wilbert Ramires MD * ALL edits or amendments must be made on the electronic/computer document * Subjective Chief complaint: AMS and right foot infection. doing ok. not much pain. s/p extensive debridement. remains on insulin drip. Review of Systems All systems rev neg: except as noted Objective General VS/I O: Vital Signs: Date Time Temp Pulse Resp B/P B/P Pulse O2 O2 Flow FiO2 Mean Ox Delivery Rate 08/20 0700 82 15 124/69 92 97 03/29 [...] 74 95 03/28 1419 Nasal 2 cannula 03/28 1415 85 16 94/52 66 95 03/28 1410 85 16 94/50 67 95 03/28 1405 84 30 88/52 64 98 08/19 [...] 24 Hrs Insulin Glargine (Lantus/Semglee) 25 UNIT BEDTIME SUBQ [...] Sodium Chloride (SODIUM CHLORIDE 0.9%) 1,000 ML .[id number] IV Dextrose/Water (DEXTROSE 10% IN WATER) 250 ML ASDIR PRN IV (CKD) Insulin Human Regular (HumuLIN R) 100 UNIT ASDIR IV (DC) Sodium Chloride (SODIUM CHLORIDE 0.9%) 99 ML Insulin Human Regular (HUMAN INSULIN REG) 10 UNITS [...] no heave Respiratory: aerating well, clear to auscultation, symmetric expansion, no distress Abdomen: non-tender, normal bowel sounds, soft, no distention Genitourinary: no bladder distention Extremities: right foot markedly swollen with violacous disoloratoin of dorsum and lateral area extending to ankle. There were blisters with some blisters were open. Neuro/QUANTITATIVE ANALYST: alert, oriented X 3, normal speech Considered stroke alert: no Skin: no rash Psychiatry: normal affect, normal judgment/insight, normal mood Results Findings/Data: Laboratory Tests 08/20 [...] (3.4 - 5.0 g/dL) 1.70 L 08/19 172 1652 1601 Chemistry Sodium (134 - [...] (Auto) (14.0 - 32.0 %) 3.8 L [place] % (Auto) (4.8 - 9.0 %) 3.7 L Eos % (Auto) (0.3 - 3.7 %) 0.0 L Baso % (Auto) (0.0 - 2.0 %) 0.3 Neut # (Auto) (2.0 - 7.6 x10 3/uL) 17.97 H Lymph # (Auto) (1.0 - 3.8 x10 3/uL) 0.76 L Monte[place] # (Auto) (0.1 - 0.8 x10 3/uL) [...] pH (5.0 - 7.0) 5.0 Ur Specific Cohagen (1.005 - 1.030) 1.013 Urine Protein (NEGATIVE) [...] poorly controlled severe gas gangrene, right foot/necrotizing fascitis MRSA bacteremia ERIKA severe hyponatremia likely due [...] and Zosyn - podiatry eval - d.w Nuvia Hernandez - likely will need debridement - [...] - will likely need wound vac and extermination inspector IV antibiotic therapy - d/w at bedside - PT/OT at 1057 RPT #:[id number] END OF REPORT [facility] 2022-08-19 20:38:00 [facility] ([facility]) Cardiology Progress Note REPORT#:[id number] REPORT STATUS: Signed DATE:08/19/22 TIME: 2037 PATIENT: KARMA ROWLAND UNIT #: [id number] ROOM/BED: [facility] : 63 AGE: 56 SEX: M ATTEND: Wilbert Ramires MD ADM AUTHOR: Napoleon Parham MD * ALL edits or amendments must be made on the electronic/computer document * Subjective Chief complaint: foot infection [...] 08/19 1815 80 15 99/61 75 97 / 1810 71 12 94/55 68 97 08/19 1805 68 15 81/52 61 97 / 1800 68 15 83/54 64 97 08/19 1755 67 14 80/51 61 95 / 1750 66 10 72/45 54 90 08/19 1745 69 15 80/52 62 97 / 1740 71 15 80/52 61 96 / 1735 71 15 82/52 62 96 / 1730 71 14 82/52 62 97 / 1725 71 15 78/50 60 97 / 1720 73 14 84/54 65 98 / 1715 73 16 81/49 61 97 / 1710 75 15 77/48 58 97 / 1705 75 15 77/49 59 97 / 1700 75 16 78/49 59 98 / 1655 75 16 70/47 55 97 / 1650 75 17 77/50 58 97 / 1645 75 17 75/49 58 97 / 1640 75 16 75/49 57 97 / 1635 75 16 79/46 58 96 / 1630 75 15 76/51 59 96 / 1625 75 16 75/52 60 96 / [...] 03 1045 101 18 112/60 80 97 08/19 [...] 03/ 0345 89 19 107/55 76 96 08/19 [...] 24 Hrs Insulin Glargine (Lantus/Semglee) 15 UNIT BEDTIME SUBQ Norepinephrine Bitartrate (NOREPINEPHRINE 8 MG/NS 250 ML) 250 ML TITRATE IV Sodium Chloride (SODIUM CHLORIDE 0.9%) 500 ML BOLUS ONCE ONE IV (DC) Albumin Human (ALBUMINAR 25%) 100 ML Q6H IV Sodium Chloride (SODIUM CHLORIDE 0.9%) 500 ML BOLUS ONCE ONE IV (DC) Sodium Chloride (SODIUM CHLORIDE 0.9%) 1,000 ML .[id number] IV Dextrose/Water (DEXTROSE 10% IN WATER) 250 ML ASDIR PRN IV (CKD) Insulin Human Regular (HumuLIN R) 100 UNIT ASDIR IV (CKD) Sodium Chloride (SODIUM CHLORIDE 0.9%) 99 ML Insulin Human Regular (HUMAN INSULIN REG) 10 UNITS [...] 99 ML Glycopyrrolate (GLYCOPYRROLATE) 0 .STK-MED ONE .ROUTE (DC) Neostigmine [...] 20 ML .STK-MED ONE IV (DC) Rocuronium Melrude (ZEMURON) 0 .STK-MED ONE IV (DC) Vancomycin [...] ML Dextrose/Sodium Chloride (Dextrose 5% / 0.45% NaCl) 1,000 [...] no distress Lower extremity: LE assessment: edema Neuro/QUANTITATIVE ANALYST: alert, oriented X 3 Considered stroke alert: [...] - 32.0 %) 3.8 L 4.3 L Monte[place] % (Auto) (4.8 - 9.0 %) 3.7 L 3.1 L Eos % (Auto) (0.3 - 3.7 %) 0.0 L 0.0 L Baso % (Auto) (0.0 - 2.0 %) 0.3 0.3 Neut # (Auto) (2.0 - 7.6 x10 3/uL) 17.97 H 19.17 H Lymph # (Auto) (1.0 - 3.8 x10 3/uL) 0.76 L 0.91 L [place] # (Auto) (0.1 - 0.8 x10 3/uL) [...] pH (5.0 - 7.0) 5.0 Ur Specific Cohagen (1.005 - 1.030) 1.013 Urine Protein (NEGATIVE) [...] 2.13 Radiology data: Recent Impressions: ULTRASOUND - Biomonde UNI/LTD 08/19 0950 Report Impression - Status: [...] elevated blood sugar. Diagnosed with DKA and sepsis. 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 Known cardiac history of hypertension and hyperlipidemia. Denies prior history of CAD, CHF or arrhythmia. EKG abnormal, NSR with anterior infarct. Vital signs stable. No prior cardiac work-up. -Check echocardiogram -Monitor telemetry for arrhythmia -Monitor [...] as RN, will follow. at 1329 RPT #:[id number] END OF REPORT [facility] 2022-08-19 17:01:00 [facility] ([facility]) Infectious Dis. Progress Note REPORT#:[id number] REPORT STATUS: Signed DATE:08/19/22 TIME: 1701 PATIENT: KARMA ROWLAND UNIT #: [id number] ROOM/BED: [place] [address] : 63 AGE: 56 SEX: M ATTEND: Wilbert Ramires MD ADM AUTHOR: Anthony Curtis MD * ALL edits or amendments must be made on the electronic/computer document * Subjective Chief complaint: Follow-up on MRSA bacteremia, right lower extremity necrotizing soft tissue infection. HPI: Had right [...] 08/19 1535 76 16 75/47 55 97 03/ 1534 79 20 74/44 54 94 03/ 1530 77 16 76/48 57 97 03/ 1525 79 17 85/53 65 97 03/ 1520 82 17 84/55 63 97 03/ 1516 83 17 83/53 64 97 03/ 1511 83 18 81/60 66 95 03/ 1505 83 20 82/50 62 95 03/ [...] 03/ 1250 81 18 90/50 63 100 03/28 [...] 03/ 1030 101 19 115/60 82 96 08/19 1015 102 18 115/60 80 95 03/ 1000 101 20 110/58 78 95 08/19 0945 102 18 110/57 78 96 08/19 0930 101 18 106/55 74 95 08/19 0915 101 20 111/58 79 95 03/ [...] 08/19 0600 91 16 114/58 80 95 / 0545 91 16 114/55 78 95 08/19 [...] 03/ 0345 89 19 107/55 76 96 08/19 0330 86 18 109/58 80 94 / 0315 87 18 109/53 78 94 03/ 0300 93 17 125/57 82 96 08/19 [...] Exam General appearance: alert, awake, no acute distress Wound/incision: Location: right foot currently dressed Cardiovascular: normal heart sounds, regular rate rhythm, no murmur Respiratory: clear to auscultation, aerating well, symmetric expansion Abdomen: non-tender, soft, no distention Extremities: edema, RLE pitting edema noted Neuro/QUANTITATIVE ANALYST: alert, 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 Considered stroke alert: [...] consultation is requested for antimicrobial recommendations. *MRSA bacteremia *Severe sepsis due to above *Right lower extremity necrotizing fasciitis *DKA *Prostatic mass versus abscess *ERIKA *Hyponatremia *Diabetic neuropathy *Diabetes mellitus type 2 *Hypertension -Afebrile. -Leukocytosis of 21.3 on today's CBC noted. Overall, slightly downtrending. -Hemoglobin A1c >14%. -Initial blood cultures from 08/18/2022 positive for MRSA in 2 out of 2 sets. -Wound culture also positive for Staphylococcus aureus. -TTE 08/18/2022 negative for any obvious vegetations. -Went to the OR today per podiatry for an I D. Operative note currently pending. -Seen by urology for prostatic mass versus abscess. Plans for pelvic MRI noted. Plan: -Repeat blood cultures x2 today. -Continue to repeat serial blood cultures till bacteremia clears. -Presentation is likely due to MRSA infection only and the source is right foot. -If there is no additional growth, would likely stop meropenem by tomorrow. -Continue clindamycin x5 to 7 days total. -Continue vancomycin. -If patient has persistent bacteremia, he might need a JIMENA. -Continue supportive ICU care. CURRENT ANTIMICROBIALS: Clindamycin + meropenem + vancomycin, started 08/18/2022 Day 2 at 1710 RPT #:[id number] END OF REPORT [facility] 2022-08-19 16:20:00 [facility] Prog.Note-Vancomycin REPORT#:[id number] REPORT STATUS: Signed DATE:08/19/22 TIME: 1620 PATIENT: KARMA ROWLAND UNIT #: [id number] ROOM/BED: [place] [address] : 63 AGE: 56 SEX: M ATTEND: Wilbert Ramires MD ADM AUTHOR: Tolu Tobias [facility] * ALL edits or amendments must be made on the electronic/computer document * Vancomycin Vancomycin Medication Therapy Goal: AUC 400-600 mg*hr/L Indication for treatment: Empiric (now confirmed foot infection and bacteremia) Weight: Actual weight (kg): 77.7 VS and I/O: Vital Signs Date Temp Pulse Resp B/P B/P Mean Pulse Ox FiO2 08/18-08/19 36.6-37.7 75-135 14-30 74-156/44-78 54-96 91-100 72 hours ending at 0700 08/19 0708/18 19008/18 0708/17 1900 08/17 08/16 0700 1900 Intake 3418.00 Total Output 1600 Total Balance 1818.00 Intake, IV 2818.00 Intake, 600 Oral Output, 1600 Urine Patient 77.7 kg Weight Weight Stated/Rep orted Measuremen t Method 72 Hour I O Total 08/19 0708/18 0700 08/17 0700 Intake Total 3418.00 Output [...] 0915 FOOT: Wound Culture - ORD 08/18 020 FOOT: Wound Culture - RES COAG POS STAPHYLOCOCCUS 08/18 020 THROAT: Group A Streptococcus Screen (VERONICA) [...] regimen Regimen: HPI: Karma Rowland is a 56 yo male [...] Tmax of 37.6C over the past 24 hours Renal Function: BUN/SCr 39/1.1 (relatively unchanged in past 24 hours, improvement from admission) Urine Output with 1600 mL document over the past 24 hours Estimated CrCl 72 mL/min (using adjusted body weight) Microbiology: 08/19 Abscess Cx from right foot: Many GPC on gram stain (updated 08/19) 08/18 Blood Cx x2: 2/4 Coag Pos Staph (MRSA per Verigene) (updated 08/19) 08/18 Wound Cx from right foot: Many Coag Pos Staph (updated 08/19) 08/18 Rapid Strep: Negative Imagin/27 TTE: No valvular abnormalities 08/[address]: Extensive soft tissue edema with mottled gas in subcutaneous and intramuscular compartments compatible with gas-forming infection 08/18 Right foot X-ray: No convincing evidence for OM Dosing and Monitoring: -Patient received a loading dose of vancomycin yesterday, was set to start 1 g q24h today -Considering improving renal function and confirmed MRSA bacteremia, have increased frequency to q12h -Patient with confirmed MRSA bacteremia, will plan for AUC monitoring provided stable renal function Pharmacy will continue to monitor Thank you for this consult at 1621 RPT #:[id number] END OF REPORT [facility] 2022-08-19 15:40:00 [facility] ([facility]) Critical Care Progress Note REPORT#:[id number] REPORT STATUS: Signed DATE:08/19/22 TIME: 1540 PATIENT: KARMA ROWLAND UNIT #: [id number] ROOM/BED: [place] [address] : 63 AGE: 56 SEX: M ATTEND: Wilbert Ramires MD ADM AUTHOR: Alma De La Rosa LOG ROPER * ALL edits or amendments must be made on the electronic/computer document * Subjective Chief complaint: RLE pain [...] Exam General appearance: alert, awake, oriented, no acute distress Head/eyes: atraumatic, clear cornea, normocephalic, PERRLA ENT: moist mucosal membranes, normal dentition, normal nose Neck: full range of motion, non-tender, no JVD, no masses or swelling Cardiovascular: decreased cap refill, tachycardia, regular rate and rhythm Respiratory: aerating well, clear to auscultation, symmetric expansion Abdomen: soft, non-tender, normal bowel sounds Extremities: decreased range of motion, edema, moves all Musculoskeletal decreased ROM Neuro/QUANTITATIVE ANALYST: alert, normal speech, 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, no sensory deficits Considered stroke alert: no Skin: abnormal color, abnormal temperature Wound/incision: Location: right foot Site condition: dressing clean dry, dressing intact Psychiatry: normal affect Results Findings/data: Laboratory Tests 08/19/22 1115: [Embedded Image Not Available] 08/19/22 0737: [Embedded Image Not Available] 08/19/22 0445: [Embedded Image Not Available] 08/19/22 0340: [Embedded Image Not Available] 08/18/22 2246: [Embedded Image Not Available] Microbiology: 08/19 1210 ABSCESS: Wound Culture - [...] data Recent Impressions: ULTRASOUND - DUP LE ART UNI/LTD 08/19 0950 Report Impression - Status: SIGNED Entered: 08/19/2022 1056 IMPRESSION: No sonographic evidence for flow-limiting stenosis in the right lower extremity arterial system. Impression By: [email or web address] - Abraham Ross M.D. Results: labs reviewed, vital signs reviewed, vital signs stable, rhythm personally rev'd, x-ray personally reviewed, current med profile rev'd Diagnosis, Assessment Plan Free text A P: 56 year old male unknown PMH who presented 08/18 with fever, AMS. He was found to have labs consisent with DKA with AGAP 21 and glucose 700+. Problem list: * Acute post op pain * DKA * pseudohyponatremia * tachycardia/hypotension likely secondary to hypovolemia * ERIKA * microcytic anemia - iron deficency * gram positive bactermia likely MRSA * RLE necrotizing fascitis /gas gangrene Neuro: pain regimen per scale CV: cont IVF resuscitation. levophed if needed to keep MAP>65 Pulm: no issues. wean NC to maintain SpO2>92% GI: no issues, advance diet. bowel regimen Renal: cont IVF, trend cr, serial chemistry, monitor I O Heme: trend HH, will need outpatient eval for etiology ID: blood cx + CONS. merrem/ clindamycin Endo: insulin protocol + lantus per moisture tester. gap closed. a1c>14. MUSK: s/p RLE debridement on 08/19 GI px: pepcid DVT px: hep sq Dispo: ICU I have spent 35 minutes critical care time assessing, reviewing labs and imaging and discussing plan of care with the critical care payroll associate. at 1611 RPT #:[id number] END OF REPORT [facility] 2022-08-19 15:15:00 [facility] Endocrinology Progress Note REPORT#:[id number] REPORT STATUS: Signed DATE:08/19/22 TIME: 1515 PATIENT: KARMA ROWLAND UNIT #: [id number] ROOM/BED: [place] [address] : 61 AGE: 56 SEX: M ATTEND: Wilbert Ramires MD ADM AUTHOR: Braxton Chapin MD * ALL edits or amendments must be made on the electronic/computer document * Subjective Patient reports: no complaints [...] Insulin Human Regular (HUMAN INSULIN REG) 10 UNITS [...] 99 ML Glycopyrrolate (GLYCOPYRROLATE) 0 .STK-MED ONE .ROUTE (DC) Neostigmine [...] 20 ML .STK-MED ONE IV (DC) Rocuronium Melrude (ZEMURON) 0 .STK-MED ONE IV (DC) Vancomycin [...] ML Dextrose/Sodium Chloride (Dextrose 5% / 0.45% NaCl) 1,000 [...] (SODIUM CHLORIDE 0.9% 100 ML) 100 ML Dextrose/Water (DEXTROSE 10% IN WATER) 250 ML ASDIR PRN IV (CKD) Insulin Human Regular (HumuLIN R) 100 UNIT ASDIR IV (DC) Sodium Chloride (SODIUM CHLORIDE 0.9%) 99 ML Magnesium Sulfate (MAGNESIUM SULFATE 2GM/SWFI 50ML) 50 [...] (Auto) (14.0 - 32.0 %) 4.3 L Monte[place] % (Auto) (4.8 - 9.0 %) 3.1 L Eos % (Auto) (0.3 - 3.7 %) 0.0 L Baso % (Auto) (0.0 - 2.0 %) 0.3 Neut # (Auto) (2.0 - 7.6 x10 3/uL) 19.17 H Lymph # (Auto) (1.0 - 3.8 x10 3/uL) 0.91 L [place] # (Auto) (0.1 - 0.8 x10 3/uL) [...] MRI is more sensitive for detecting osteomyelitis. Impression By: Ankur Ladd M.D. CAT SCAN - CT ABD PELVIS W/CONT 08/18 0339 Report Impression - Status: SIGNED Entered: 08/18/2022 0546 IMPRESSION: 3.3 cm hypodensity in the left posterior prostate or seminal vesicle. This could represent an abscess. Contrast-enhanced MRI of the pelvis would be helpful for further evaluation. No acute intra-abdominal findings otherwise. Impression By: [...] 1. 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 2. DKA 3. Cellulitis and gangrene of the right foot. 4. Sepsis 5. Altered mental status 6. High LFTs Blood sugar 315-292 mg/dL.A gap 5 HbA1c 13.4% White count 26.5 Sodium 121. Adjust insulin drip settings Start by mouth feedings Wound care and IV antibiotics. at 1516 [facility] #:[id number] END OF REPORT [facility] 2022-08-19 12:46:00 [phone] [place] [address] PATIENT NAME: KARMA ROWLAND ADMIT DATE: 08/18/22 ACCOUNT NO: [id number] ROOM NO: G.M325 AGE: 56 REPORT TYPE: OPERATIVE REPORT SEX: M ADMITTING PHYSICIAN:Wilbert Ramires MD ATTENDING PHYSICIAN:Wilbert Ramires MD OPERATION DATE: SURGEON: Liam Jeffrey DPM SALES PROMOTION OFFICER: No assistant to the dean. PREOPERATIVE DIAGNOSES: 1. Gas gangrene, right foot [...] very complicated situation pleasant man. He is in the [...] debridement. There was also some liquified bone there [...] well as aerobic and anaerobic culture and sensitivity. I irrigated copiously with a pulse special machine operator machine as well as 80 mg of [...] as well. Then, I utilized the pulse special machine operator machine with the saline and gentamicin. I [...] between the flexor retinaculum at the laciniate ligament and the skin level. There is quite a bit of space. I went through some tunneling. I opened up the tunnel and I opened up the pocket and eradicated any of the abscess. I debrided skin, subcutaneous tissue, muscle, tendon that was liquified that was necrotic. Irrigated copiously with saline and gentamicin irrigation with pulse special machine operator machine. Make sure we had good hemostasis. [...] below-knee amputation if not more complicated situation. The patient was extubated and transported back to the intensive care unit with vital signs stable and vascular status intact to right foot. He tolerated the procedure and anesthesia well, no apparent complications. All sponge and needle [...] her tomorrow as well. Dictated By: Liam Jeffrey DPM Date Dictated: 08/19/2022 12:46:06 Date Transcribed: 08/19/2022 15:59:49 SHAISTA/YASMINE Receipt ID: [id number] Authenticated by Liam Jeffrey DPM On 08/25/2022 09:42:00 PM at 0942 PATIENT NAME: KARMA ROWLAND [facility] 2022-08-19 07:13:00 [facility]) Hospitalist Progress Note REPORT#:[id number] REPORT STATUS: Signed DATE:08/19/22 TIME: 712 PATIENT: KARMA ROWLAND UNIT #: [id number] ROOM/BED: [place] [address] : 61 AGE: 56 SEX: M ATTEND: Wilbert Ramires MD ADM AUTHOR: Wilbert Ramires MD * ALL edits or amendments must be made on the electronic/computer document * Subjective Chief complaint: AMS and [...] 08/19 0115 91 19 100/55 75 92 / 0100 95 22 90/51 66 95 03/28 0045 97 22 97/56 70 94 / 0030 92 20 91/55 69 94 08/19 0015 98 20 105/59 77 95 / 0000 98.9 Room air 08/19 0000 94 19 97/55 73 91 / 2345 101 23 100/57 75 95 / 2330 97 21 101/55 75 95 03/ 2315 98 21 108/55 75 94 03/ 2300 101 21 112/61 80 95 / 2245 104 21 126/61 87 93 03/27 2230 103 19 116/57 80 91 03/ 2215 100 21 101/55 75 92 / 2200 100 21 105/57 76 92 03/ 2147 99 25 108/54 76 08/19 1999 99.6 Room air 08/19 1999 100 20 102/55 74 95 / 1930 104 20 107/59 79 96 03/ 1915 104 20 107/55 75 96 / 1900 109 20 119/63 84 96 08/18 1834 107 25 96 / 1830 103 26 107/55 75 97 / 1815 105 24 101/55 71 95 / 1800 101 21 104/52 71 96 / 1745 101 18 96/50 70 97 / 1730 102 24 107/57 77 93 / 1715 104 24 117/56 77 94 /27 1700 106 22 112/58 79 95 / 1645 108 26 106/71 81 96 / 1637 109 23 96 / 1630 107 21 116/58 80 96 03/27 1615 106 20 108/58 77 97 03/ 1600 98.9 109 22 101/58 72 96 Room air 08/18 1600 104 22 101/58 77 96 03/27 1545 101 21 97/56 73 95 03/27 1530 103 23 97/56 73 96 03/27 1515 101 23 99/56 74 96 03/27 1500 100 23 104/55 78 95 03/27 1445 113 25 111/58 80 97 03/27 1430 101 19 95 03/ 1415 100 20 108/51 74 96 03/27 1400 105 20 103/58 75 98 03/27 1345 102 22 103/58 77 96 03/ 1337 102 19 97 03/ 1330 101 21 98/56 74 95 08/18 1315 103 21 95/53 69 95 03 1300 102 22 94/53 70 96 03 1245 104 22 104/57 76 96 08/18 1230 107 21 107/56 78 96 08/18 1215 108 21 102/57 76 95 08/18 1200 99.4 105 17 106/59 74 97 Room air 03 1200 108 17 106/59 77 97 03 1145 109 22 111/57 80 96 08/18 [...] ML Dextrose/Sodium Chloride (Dextrose 5% / 0.45% NaCl) 1,000 [...] ML Heparin Sodium (HEPARIN 5000 UNITS/ML) 5,000 UNIT Q8HR SUBQ Piperacillin Sod/Tazobactam Sod (ZOSYN 3.375GM) 3.375 GM Q8H IV (DC) Sodium Chloride (SODIUM CHLORIDE 0.9% 100 ML) 100 ML Dextrose/Water (DEXTROSE 10% IN WATER) 250 ML ASDIR PRN IV (CKD) Dextrose/Water (Dextrose 10% 1,000 mL) 1,000 ML ASDIR IV (DC) Insulin Human Regular (HumuLIN R) 100 UNIT ASDIR IV (DC) Sodium Chloride (SODIUM CHLORIDE 0.9%) 99 ML Magnesium Sulfate (MAGNESIUM SULFATE 2GM/SWFI 50ML) 50 [...] no heave Respiratory: aerating well, clear to auscultation, symmetric expansion, no distress Abdomen: non-tender, normal bowel sounds, soft, no distention Genitourinary: no bladder distention Extremities: right foot markedly swollen with violacous disoloratoin of dorsum and lateral area extending to ankle. There were blisters with some blisters were open. Neuro/QUANTITATIVE ANALYST: alert, oriented X 3, normal speech Considered stroke alert: no Skin: no rash Psychiatry: normal affect, normal judgment/insight, normal mood Results Findings/Data: Laboratory Tests 08/19 [...] (Auto) (14.0 - 32.0 %) 4.3 L [place] % (Auto) (4.8 - 9.0 %) 3.1 L Eos % (Auto) (0.3 - 3.7 %) 0.0 L Baso % (Auto) (0.0 - 2.0 %) 0.3 Neut # (Auto) (2.0 - 7.6 x10 3/uL) 19.17 H Lymph # (Auto) (1.0 - 3.8 x10 3/uL) 0.91 L [place] # (Auto) (0.1 - 0.8 x10 3/uL) [...] poorly controlled severe gas gangrene, right foot/necrotizing fascitis MRSA bacteremia ERIKA severe hyponatremia likely due [...] and Zosyn - podiatry eval - d.w Nuvia Hernandez - likely will need debridement - [...] is following. - keep in ICU at 0828 RPT #:[id number] END OF REPORT [facility] 2022-08-18 22:27:00 [phone] [place] [id number] PATIENT NAME: KARMA ROWLAND ADMIT DATE: 08/18/22 ACCOUNT NO: [id number] ROOM NO: [id number] AGE: 56 REPORT TYPE: eECHOCARDIOGRAM REPORT SEX: M ADMITTING PHYSICIAN:Wilbert Ramires MD ATTENDING PHYSICIAN:Wilbert Ramires MD *[address] [address] Transthoracic Echocardiogram Patient: Karma Rowland Study Date: 08/18/2022 BP: 156 / 65 Location: [facility] URN: [id number] : 1965 Age: 56 Height: 66 in / 167.6 cm Gender: M Weight: 170.6 lb / 77.6 kg BMI/BSA: 27.6 kg/m 2 / 1.87 m 2 *Ordering Physician: * Rohit BenitezInterpreting Physician: * Napoleon Parham MD *Communications Strategist: * Nubia To ------ Indications: Cardiac clearance. ------ Study data: Transthoracic echocardiogram. Procedure: Transthoracic echocardiography was performed. Image quality was fair. Complete 2D, complete spectral Doppler, and color Doppler. Location: Bedside. Patient status: Inpatient. Patient room number: M325. Study status: Routine. ------ Findings Left ventricle: The cavity size is normal. Wall thickness is at the upper limits of normal. Systolic function is normal. The estimated ejection fraction is 55-59%. Wall motion is normal; there are no regional wall motion abnormalities. Doppler parameters are consistent with abnormal left ventricular relaxation (grade 1 diastolic PATIENT NAME: KARMA ROWLAND dysfunction). Right ventricle: The cavity size is normal. Systolic function is normal. TAPSE measurement is estimated at 22 mm. Insufficient tricuspid regurgitation jet to estimate RVSP. Left atrium: The atrium is mildly dilated. Right atrium: The atrium is normal in size. Aorta: Aortic root: The aortic root is upper normal in size. Aortic valve: The valve is structurally normal. The valve is trileaflet. There is no evidence of stenosis. There is no regurgitation. Mitral valve: The valve is structurally normal. There is no evidence of stenosis. There is no regurgitation. Tricuspid valve: The valve is structurally normal. There is trivial regurgitation. Pulmonic valve: Not well visualized. The valve is structurally normal. There is physiologic regurgitation. Pericardium: A trivial pericardial effusion is identified posterior to the heart. Pulmonary arteries: The main pulmonary artery is normal-sized. Systemic veins: Inferior vena cava: The vessel is at the upper limits of normal in size. The respirophasic diameter changes are in the normal range (= 50%). ------ Measurements Left ventricle Value Ref SAMANTHA, LAX [...] yonatan, 10 --------- PATIENT NAME: KARMA ROWLAND TDI E', avg, TDI [...] 2.48 cm --------- PATIENT NAME: KARMA ROWLAND Peak v, S 1.43 [...] cm 2 --------- Pulmonic valve Value Ref NE v, ED 1.07 m/sec --------- Aortic root Value Ref Root diam, ED 3.92 cm --------- MM ------ Conclusions Summary: 1. Left ventricle: The cavity size is normal. Wall thickness is at the upper limits of normal. Systolic function is normal. The estimated ejection fraction is 55-59%. Wall motion is normal; there are no regional wall motion abnormalities. Doppler parameters are consistent with abnormal left ventricular relaxation (grade 1 diastolic dysfunction). 2. Left atrium: The atrium is mildly dilated. 3. Pericardium, extracardiac: A trivial pericardial effusion is identified posterior to the heart. Prepared and electronically signed by Napoleon Parham MD 08/18/2022 22:27 PATIENT NAME: LASHAWN ROWLANDO at 2227 PATIENT NAME: KARAM ROWLAND [facility] 2022-08-18 19:00:00 [id number] [place] [address] PATIENT NAME: KARMA ROWLAND ADMIT DATE: 08/18/22 ACCOUNT NO: [id number] ROOM NO: G.458 AGE: 56 REPORT TYPE: CONSULTATION REPORT SEX: M ADMITTING PHYSICIAN:Wilbert Ramires MD ATTENDING PHYSICIAN:Wilbert Ramires MD CONSULTATION DATE:08/18/2022 CONSULTATION: Wilbert Ramires MD HISTORY OF PRESENT ILLNESS: This is a 56-year-old gentleman admitted with a right foot infection, altered mental status, who also had DKA. During workup, there is a questionable hypodensity in the prostate. He denies any dysuria, urgency, frequency, hematuria. He is a poor historian. PAST MEDICAL HISTORY: Diabetes, neuropathy, hypertension, hyperlipidemia, DKA. PAST SURGICAL HISTORY: Foot and ankle surgery. FAMILY HISTORY: Noncontributory. SOCIAL HISTORY: Denies current alcohol, tobacco or drug use. HOME MEDICATIONS: Reviewed from the MAR. ALLERGIES: NO KNOWN DRUG ALLERGIES. REVIEW OF SYSTEMS: A 14-point review of system was obtained and is negative other than HPI. PHYSICAL EXAMINATION: VITAL SIGNS: Afebrile, T-max 37.5, heart rate 107, blood pressure 107/55, 96% on room air. GENERAL: Alert. No acute distress, nontoxic. HEENT: Confused. EXTREMITIES: Moving all extremities well. ABDOMEN: Soft, nontender, nondistended. No guarding or rebound. LABORATORY DATA: White blood cell count 26.5, hemoglobin 9, platelets 355. Creatinine 1.4. Urine pending. IMAGING STUDIES: CT scan of the abdomen and pelvis was reviewed in detail. There is a questionable 3 cm area in the left inferior pelvis, imvolving the prostate and left seminal vesicle. ASSESSMENT AND PLAN: A 56-year-old male admitted without any particular urination issue. Persistant elevated white blood count. There is a question of hyperdensity in the prostate. We will get a PSA and order an MRI of the prostate. Discussed this with the patient and the family in detail and answered PATIENT NAME: KARMA ROWLAND all questions. Dictated By: David Du MD Date Dictated: 08/18/2022 19:00:04 Date Transcribed: 08/18/2022 20:29:11 CHIRAG/MARIA ESTHER/JEMIMA Receipt ID: [id number] Authenticated and Edited by David Du MD On 09/16/22 4:52:30 PM at 0459 PATIENT NAME: KARMA ROWLAND [facility] 2022-08-18 17:07:00 [facility] ([facility]) Infect Disease Consult Note REPORT#:[id number] REPORT STATUS: Signed DATE:08/18/22 TIME: 170 PATIENT: KARMA ROWLAND UNIT #: [id number] ROOM/BED: [place] [address] : 63 AGE: 56 SEX: M ATTEND: Wilbert Ramires MD ADM AUTHOR: Anthony Curtis MD * ALL edits or amendments must be made on the electronic/computer document * History of Present Illness Requesting [...] intramuscular compartments of the foot, compatible with gas -forming infection. Patient's blood cultures have come back positive for MRSA in 2 out of 2 sets. He is currently on combination of clindamycin, piperacillin -tazobactam and vancomycin. Infectious disease consultation is requested [...] 13 years old or older: Never Smoker Other social history: Local resident, Good social support Allergies: Coded Allergies: No Known Allergies [...] 08/18 1145 109 22 111/57 80 96 03 1130 113 21 117/57 79 98 03/ 1115 109 19 114/56 80 96 03/ 1100 108 19 130/53 78 98 03/ 1046 110 20 156/65 93 100 03/ 1031 134 25 138/65 94 99 03/ 1016 109 28 141/67 96 93 03/ 1015 109 26 100 03/ 1000 108 27 127/64 89 100 03 0945 105 27 116/55 79 100 / 0930 135 26 120/57 82 99 / 0915 101 24 126/56 82 100 08/18 0900 98 16 112/59 77 100 08/18 0845 93 23 110/57 78 100 / 0830 95 21 112/59 81 100 08/18 0815 93 18 117/58 81 100 08/18 0800 99.5 117 21 113/69 83 98 Room air 08/18 0800 116 30 108/78 88 100 08/18 0745 86 27 104/69 77 99 08/18 0730 88 25 108/70 85 100 08/18 0718 83 14 101/56 73 100 / 0700 82 17 87/58 68 100 03/ 0530 85 16 107/58 75 98 03/ 0500 86 21 99/59 73 99 08/18 0430 89 20 94/55 70 99 08/18 0415 88 16 90/51 65 100 08/18 0400 91 28 110/56 80 97 / 0152 97.8 97 18 112/55 74 100 Room air 24 hour I O ending at 0700: 08/18 0700 08/17 1900 Intake Total Output Total Balance Patient 77.7 kg Weight Weight Stated/Reported Measurement Method PATIENT WEIGHT: Weight (lb): Weight (oz): Weight (kg): 77.700 Physical Exam General appearance: alert, awake, no acute distress Wound/incision: Location: right foot currently dressed Head/Eyes: atraumatic, normocephalic Neck: supple/no meningismus, no JVD Cardiovascular: tachycardia, no murmur Respiratory: clear to auscultation, aerating well, symmetric expansion Abdomen: non-tender, soft, no distention Extremities: edema, RLE pitting edema noted Neuro/QUANTITATIVE ANALYST: alert, 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 Considered stroke alert: [...] MRI is more sensitive for detecting osteomyelitis. Impression By: Ankur Ladd M.D. CAT SCAN - CT ABD PELVIS W/CONT 08/18 0339 Report Impression - Status: SIGNED Entered: 08/18/2022 0546 IMPRESSION: 3.3 cm hypodensity in the left posterior prostate or seminal vesicle. This could represent an abscess. Contrast-enhanced MRI of the pelvis would be helpful for further evaluation. No acute intra-abdominal findings otherwise. Impression By: [...] -Repeat blood cultures in a.m. to document clearance of bacteremia. -Continue to repeat serial blood cultures till bacteremia clears. -Recommend TTE. -Further recommendations to follow based upon clinical course. Thank you for the consult. We will follow the patient with you. at 1721 RPT #:[id number] END OF REPORT [facility] 2022-08-18 17:04:00 [facility] ([facility]) Endocrinology Progress Note REPORT#:[id number] REPORT STATUS: Signed DATE:08/18/22 TIME: 1704 PATIENT: KARMA ROWLAND UNIT #: [id number] ROOM/BED: [place] [address] : 63 AGE: 56 SEX: M ATTEND: Wilbert Ramires MD ADM AUTHOR: Braxton Chapin MD * ALL edits or amendments must be made on the electronic/computer document * Subjective Patient reports: no complaints [...] ML Dextrose/Sodium Chloride (Dextrose 5% / 0.45% NaCl) 1,000 [...] ML Heparin Sodium (HEPARIN 5000 UNITS/ML) 5,000 UNIT Q8HR SUBQ Piperacillin Sod/Tazobactam Sod (ZOSYN 3.375GM) 3.375 GM Q8H IV Sodium Chloride (SODIUM CHLORIDE 0.9% 100 ML) 100 ML Dextrose/Water (DEXTROSE 10% IN WATER) 250 ML ASDIR PRN IV (CKD) Dextrose/Water (Dextrose 10% 1,000 mL) 1,000 ML ASDIR IV (DC) Insulin Human Regular (HumuLIN R) 100 UNIT ASDIR IV (DC) Sodium Chloride (SODIUM CHLORIDE 0.9%) 99 ML Magnesium Sulfate (MAGNESIUM SULFATE 2GM/SWFI 50ML) 50 [...] MRI is more sensitive for detecting osteomyelitis. Impression By: Ankur Ladd M.D. CAT SCAN - CT ABD PELVIS W/CONT 08/18 0339 Report Impression - Status: SIGNED Entered: 08/18/2022 0546 IMPRESSION: 3.3 cm hypodensity in the left posterior prostate or seminal vesicle. This could represent an abscess. Contrast-enhanced MRI of the pelvis would be helpful for further evaluation. No acute intra-abdominal findings otherwise. Impression By: [...] 1. 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 2. DKA 3. Cellulitis and gangrene of the right foot. 4. Sepsis 5. Altered mental status 6. High LFTs Blood sugar [id number] mg/dL.A gap 21 HbA1c 13.4% White count 26.5 Sodium 121. Adjust insulin drip settings Start by mouth feedings Wound care and IV antibiotics. at 1707 RPT #:[id number] END OF REPORT [facility] 2022-08-18 16:05:00 [facility] ([facility]) Cardiology Consultation REPORT#:[id number] REPORT STATUS: Signed DATE:08/18/22 TIME: 1605 PATIENT: KARMA ROWLAND UNIT #: [id number] ROOM/BED: M325-1 : 63 AGE: 56 SEX: M ATTEND: Wilbert Ramires MD ADM AUTHOR: Rohit Benitez LOG ROPER * ALL edits or amendments must be made on the electronic/computer document * Rohit Benitez 08/18/22 1605: History [...] Diagnosed with DKA and sepsis, work-up show gangrene of right foot. Denies chest pain, pressure or shortness of breath. Cardiology consulted for preop eval/cardiac clearance. History - Adult longitudinal Additional medical history: DM 2 since age 33 DM neuropathy HTN hyperlipidemia Additional surgical history: as above Additional family history: reviewed and non contributory Alcohol use: Denies EtOH use Drug use: Denies recreational drugs Smoking status for patients 13 years old or older: Never Smoker Other social history: Local resident, Good social support Allergies: Coded Allergies: No Known Allergies (03/23/11) Review of Systems Constitutional: generalized weakness. Cardiovascular: Denies: chest pain, dyspnea on exertion, palpitations. Objective General VS/I O: Vital Signs: [...] 105 17 106/59 74 97 Room air 03 1200 108 17 106/59 77 97 03/ 1145 109 22 111/57 80 96 08/18 1130 113 21 117/57 79 98 03 1115 109 19 114/56 80 96 08/18 1100 108 19 130/53 78 98 03 1046 110 20 156/65 93 100 03 1031 134 25 138/65 94 99 03 1016 109 28 141/67 96 93 08/18 1015 109 26 100 03/ 1000 108 27 127/64 89 100 08/18 [...] 08/18 0718 83 14 101/56 73 100 03 0700 82 17 87/58 68 100 08/18 0530 85 16 107/58 75 98 08/18 0500 86 21 99/59 73 99 08/18 0430 89 20 94/55 70 99 03 0415 88 16 90/51 65 100 08/18 [...] ML Dextrose/Sodium Chloride (Dextrose 5% / 0.45% NaCl) 1,000 [...] ML Heparin Sodium (HEPARIN 5000 UNITS/ML) 5,000 UNIT Q8HR SUBQ Piperacillin Sod/Tazobactam Sod (ZOSYN 3.375GM) 3.375 GM Q8H IV Sodium Chloride (SODIUM CHLORIDE 0.9% 100 ML) 100 ML Dextrose/Water (DEXTROSE 10% IN WATER) 250 ML ASDIR PRN IV (CKD) Dextrose/Water (Dextrose 10% 1,000 mL) 1,000 ML ASDIR IV (DC) Insulin Human Regular (HumuLIN R) 100 UNIT ASDIR IV (DCr) Sodium Chloride (SODIUM CHLORIDE 0.9%) 99 ML Magnesium Sulfate (MAGNESIUM SULFATE 2GM/SWFI 50ML) 50 [...] Exam General appearance: confused, alert, awake, no acute distress, no respiratory distress Neck: no bruit/NL carotids, no JVD Cardiovascular: CV assessment: abnormal S1/S2, regular rate and rhythm, no ectopy Respiratory: clear to auscultation, no distress Lower extremity: LE assessment: edema Neuro/QUANTITATIVE ANALYST: disoriented Considered stroke alert: no Wound/incision: Location: [...] 08/18 020 Streptococcus Culture - COMP THROAT Laboratory Tests [...] MRI is more sensitive for detecting osteomyelitis. Impression By: Ankur Ladd M.D. CAT SCAN - CT ABD PELVIS W/CONT 08/18 0339 Report Impression - Status: SIGNED Entered: 08/18/2022 0546 IMPRESSION: 3.3 cm hypodensity in the left posterior prostate or seminal vesicle. This could represent an abscess. Contrast-enhanced MRI of the pelvis would be helpful for further evaluation. No acute intra-abdominal findings otherwise. Impression By: [...] elevated blood sugar. Diagnosed with DKA and sepsis. 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 Known cardiac history of hypertension and hyperlipidemia. Denies prior history of CAD, CHF or arrhythmia. EKG abnormal, NSR with anterior infarct. Vital signs stable. No prior cardiac work-up. -Check echocardiogram -Monitor telemetry for arrhythmia -Monitor blood pressure trend -Wound care and IV antibiotic therapy -Supportive care Thank you for the kind referral. Plan of care discussed with family, RN and Dr. Parham. Napoleon Parham 08/19/22 1032: Diagnosis, Assessment Plan Additional Comments: Patient was seen and examined at bedside, agree with above assessment and plan as documented by nurse practitioner with modifications. Patient presented with possible gas gangrene. Echocardiogram shows preserved LVEF. Undergoing low to intermediate risk procedure. Okay to proceed. We will follow patient closely. Awaiting for lower extremity arterial Doppler for further evaluation. at 1033 at 1357 [facility] #:[id number] END OF REPORT [facility] 2022-08-18 15:26:00 [id number] [place] [address] PATIENT NAME: KARMA ROWLAND ADMIT DATE: 08/18/22 ACCOUNT NO: [id number] ROOM NO: G.458 AGE: 56 REPORT TYPE: [...] NECK: Thyroid is palpable. Clinically, he is near euthyroid. CHEST: Diminished bilateral vesicular breathing. He has mild bronchospasm. CARDIOVASCULAR: Both first and second heart sounds. There is no third or fourth heart sounds. Ejection sound, grade II/. EXTREMITIES: The patient has evidence of diabetic sensorimotor [...] IMPRESSION: Diabetes mellitus type 2, uncontrolled with complications; diabetic ketoacidosis, sepsis, gas gangrene of the right [...] Dictated: 08/18/2022 15:26:32 Date Transcribed: 08/18/2022 18:38:46 /[facility] Receipt ID: [id number] Authenticated by Logan Chapin MD On 09/03/2022 08:32:44 PM at 0833 PATIENT NAME: KARMA ROWLAND [facility] 2022-08-18 11:20:00 [facility] ([facility]) General Surgery Consult Note REPORT#:[id number] REPORT STATUS: Signed DATE:08/18/22 TIME: 1120 PATIENT: KARMA ROWLAND UNIT #: [id number] ROOM/BED: [place] [address] : 63 AGE: 56 SEX: M ATTEND: Wilbert Ramires MD ADM AUTHOR: Forrest Oswald MD * ALL edits or amendments must be made on the electronic/computer document * History of Present Illness Chief [...] 13 years old or older: Never Smoker Other social history: Local resident, Good social support Medications: Current Hospital Medications: Anti-Infective Agents [...] 100 ML) Miscellaneous 1 EACH ASDIR 08/18 544 CKD Information IV 09/18 543 (VANCOMYCIN PHARMACY TO DOSE) Blood Formation,Coagulation Sig/Jan Start time Last Medication Dose Route Stop Time Status Admin Heparin Sodium 5,000 UNIT Q8HR 08/18 0600 AC 08/18 (HEPARIN 5000 UNITS/ SUBQ 09/17 0559 0616 ML) Central Nervous System Agents Sig/Jan Start time Last Medication Dose Route Stop Time Status Admin Acetaminophen 650 MG Q6H PRN PRN 08/18 0845 AC (TYLENOL) PO 09/17 0844 Hydrocodone Bitart/ 1 TAB Q4H PRN PRN 08/18 0945 AC Acetaminophen PO 08/23 0844 (NORCO 5/325) Morphine Sulfate 2 MG Q4H PRN PRN 08/18 0845 AC (morphine SULFATE) IV 08/24 943 Magnesium Sulfate 50 ML ASDIR PRN 08/18 0445 AC (MAGNESIUM SULFATE IV 09/17 0544 2GM/SWFI 50ML) Magnesium Sulfate 100 ML ASDIR PRN 08/18 0445 AC (MAGNESIUM SULFATE IV 09/17 0544 4GM/SWFI 100ML) Ketorolac 15 MG X1ED STA 08/18 0150 DC 08/18 Tromethamine IV 08/18 015 0227 (TORADOL) Diagnostic Agents Sig/Jan Start time Last Medication Dose Route Stop Time Status Admin Iopamidol 100 ML .STK-MED ONE 08/18 034 DC 08/18 (ISOVUE-300 100ML) IV 08/18 034 0341 Electrolytic, Caloric, And Daniel Sig/Jan Start time Last Medication Dose Route Stop Time Status Admin Dextrose/Water 250 ML ASDIR PRN 08/18 0445 CKD (DEXTROSE 10% IN IV 09/18 543 WATER) Dextrose/Water 1,000 ML ASDIR 08/18 544 AC (Dextrose 10% 1,000 IV 09/17 0544 mL) Potassium Chloride 20 MEQ ASDIR PRN 08/18 0445 AC (POTASSIUM CHLORIDE PO 09/17 0444 20MEQ TAB.ER) Potassium Chloride 40 MEQ ASDIR PRN 08/18 0445 AC (POTASSIUM CHLORIDE PO 09/17 0444 20MEQ TAB.ER) Potassium Chloride 60 MEQ ASDIR PRN 08/18 0445 CKD (POTASSIUM CHLORIDE PO 09/17 0544 20MEQ TAB.ER) Potassium Chloride 100 ML ASDIR PRN 03/27 0545 AC (KCL 20MEQ/SWFI IV 09/17 0544 [...] Review of Systems Constitutional: malaise. Denies: chills, fatigue, fever, generalized weakness, lethargy, recent wt loss, other. Skin: Denies: abrasion, bruising, contusion, diaphoresis, ecchymosis, itching, laceration, rash, swelling, other. Allergy/Immun: Denies: allergic reaction, anaphylaxis, hives, itching, rhinorrhea, sneezing, other. Eyes: Denies: redness, discharge, visual loss/blurred, itching, diplopia, eye pain, photophobia, swelling, other. ENT: Denies: ear drainage, ear ringing, earache, hearing loss, mouth pain, nasal congestion, nose bleeding, sinus problem, sore throat, throat pain, throat swelling, tongue pain, tongue swelling, toothache, voice change, other. Respiratory: Denies: OVIEDO (dyspnea on exertion), hemoptysis, non productive cough, parox nocturnal dyspnea, pleurisy, pleuritic pain, pneumonia, productive cough (sputum ), SOB, wheezing, other. Cardiovascular: Denies: chest pain, OVIEDO (dyspnea on exertion), edema, orthopnea, palpitations, parox nocturnal dyspnea, other. GI: Denies: abdominal pain, anorexia, constipation, diarrhea, dysphagia, GERD, hematemesis, hematochezia, hiatal hernia, melena, nausea, rectal pain, vomiting, other. : Denies: dysuria, flank pain, frequency, hematuria, nocturia, penile discharge, penile lesion, testicular pain, testicular swelling, urgency, urinary retention, other. Musculoskeletal: extremity pain (right foot). Heme: Denies: adenopathy, bleeding, bruising, petechiae, other. Endocrine: Denies: cold intolerance, heat intolerance, polydipsia, polyphagia, polyuria, weight gain, weight loss, other. Neuro: Denies: bladder dysfunction, bowel dysfunction, change in LOC, confusion, dizziness, focal weakness, gait problem, headache, lightheaded, numbness, seizure, slurred speech, spinning sensation, syncope, unable to speak, vision change, weakness, other. Psych: Denies: agitation, anxiety, auditory hallucination, change in mental status, confusion, delusional, depression, homicidal ideation, hostile, insomnia, stress , suicidal ideation, visual hallucination, other. Objective Physical Exam VS/I O Last Documented: [...] pleasant, conversational, mental status normal, no respiratory distress Wound/incision: Location: right foot. Dressing in place. Nontender along the lower leg and calf. HEENT: atraumatic, normocephalic Neck: supple/no meningismus Cardiovascular: regular rate and rhythm Chest: normal appearance Respiratory: aerating well Abdomen: non-tender, soft, no distention, no guarding Extremities: moves all, right foot pain. dressing in place. Neuro/QUANTITATIVE ANALYST: alert, oriented x 3, CNII-XII intact, normal speech Considered stroke alert: no Skin: normal color, normal temperature, normal turgor Psychiatry: normal affect, normal judgment/insight, normal mood Results Findings/Data: Laboratory Tests: 08/18 [...] 08/18 206 Streptococcus Culture - COMP THROAT 03/27 0203 Blood Culture - RECD BLOOD 08/18 0203 Blood Culture - RECD BLOOD Recent Impressions: [...] underlying process or neoplasm. Impression By: Mark Admas M.D. RADIOLOGY - XR FOOT 3 + V RT 08/18 0238 Report Impression - Status: SIGNED Entered: 08/18/2022 0358 IMPRESSION: No acute osseous findings. No convincing evidence for osteomyelitis. MRI is more sensitive for detecting osteomyelitis. Impression By: Ankur Ladd M.D. CAT SCAN - CT ABD PELVIS W/CONT 08/18 0339 Report Impression - Status: SIGNED Entered: 08/18/2022 0546 IMPRESSION: 3.3 cm hypodensity in the left posterior prostate or seminal vesicle. This could represent an abscess. Contrast-enhanced MRI of the pelvis would be helpful for further evaluation. No acute intra-abdominal findings otherwise. Impression By: [...] Text DxA P Notes: I have personally interviewed and examined the pt. All charts, labs and imaging studies were reviewed. No discoloration of the leg. No tenderness of the lower leg. Discussed with Dr. Jeffrey. I have recommended that the foot be treated first. Will see how the infection is after drainage/treatment. If the infection worsenes, may need amputation (BKA vs AKA). Will follow. at 1126 RPT #:[id number] END OF REPORT [facility] 2022-08-18 10:23:00 [facility] ([facility]) Podiatry Consult Note REPORT#:[id number] REPORT STATUS: Signed DATE:08/18/22 TIME: 1023 PATIENT: KARMA ROWLAND UNIT #: [id number] ROOM/BED: [place] [address] : 63 AGE: 56 SEX: M ATTEND: Wilbert Ramires MD ADM AUTHOR: Liam Jeffrey DPM * ALL edits or amendments must be made on the electronic/computer document * History of Present Illness Reason for consult: severe foot infection Chief complaint: my foot is red and swollen HPI: Thank you for the consultation I was asked to urgently come see patient who came in overnight last night. I came and saw him this morning in the intensive care unit History comes from patient from chart from nursing [...] has had areas of drainage around his ankle. He does not remember [...] 13 years old or older: Never Smoker Other social history: Local resident, Good social support Allergies: Coded Allergies: No Known Allergies (03/23/11) Review of Systems Constitutional: chills, fatigue, fever, generalized weakness, lethargy, malaise. Skin: abrasion, bruising, ecchymosis. Allergy/Immun: Denies: allergic reaction. Respiratory: Denies: OVIEDO (dyspnea on exertion). Cardiovascular: edema. Musculoskeletal: arthritis, extremity pain. Neuro: numbness. Denies: seizure, slurred speech. Psych: Denies: agitation, auditory hallucination, confusion. All systems rev neg: except as marked Objective General VS: Last Documented: Result Date Time Pulse Ox 98 08/18 529 B/P 107/58 08/18 0430 B/P Mean 75 08/18 0430 Pulse 85 08/18 529 Resp 16 08/18 [...] ML Heparin Sodium (HEPARIN 5000 UNITS/ML) 5,000 UNIT Q8HR SUBQ Piperacillin Sod/Tazobactam Sod (ZOSYN 3.375GM) 3.375 GM Q8H IV Sodium Chloride (SODIUM CHLORIDE 0.9% 100 ML) 100 ML Dextrose/Water (DEXTROSE 10% IN WATER) 250 ML ASDIR PRN IV (CKD) Dextrose/Water (Dextrose 10% 1,000 mL) 1,000 ML ASDIR IV Insulin Human Regular (HumuLIN R) 100 UNIT ASDIR IV (CKD) Sodium Chloride (SODIUM CHLORIDE 0.9%) 99 ML Magnesium Sulfate (MAGNESIUM SULFATE 2GM/SWFI 50ML) 50 [...] imported from the dietitian's assessment. BMI Calculated: 27.6 Nutrition related diagnosis: Nutrition diagnosis details: Nutrition problem: Nutrition etiology: Nutrition signs and symptoms: Nutrition prescription: Dietitian name: Assessment completed: Physical Exam General appearance: alert, awake, oriented, conversational, mental status normal Wound/incision: Location: Right foot to right ankle. DP and PT pulses are very weak essentially nonpalpable. There is severe edema of the right foot to the right ankle. There is erythema of the right foot to the right ankle. Not really any ascending lymphangitis past there. Crepitation is at the medial right hindfoot and the dorsal right midfoot. There is also crepitation at the lateral right ankle. There is some bullae that are peeling medial and lateral. Sensation is greatly decreased on the right foot. LE vascular pulse assess: Nonpalpable R posterior [...] MRI is more sensitive for detecting osteomyelitis. Impression By: Ankur Ladd M.D. CAT SCAN - CT ABD PELVIS W/CONT 08/18 0339 Report Impression - Status: SIGNED Entered: 08/18/2022 0546 IMPRESSION: 3.3 cm hypodensity in the left posterior prostate or seminal vesicle. This could represent an abscess. Contrast-enhanced MRI of the pelvis would be helpful for further evaluation. No acute intra-abdominal findings otherwise. Impression By: [...] today. Keep patient n.p.o. Given the consultation at 1030 RPT #:[id number] END OF REPORT [facility] 2022-08-18 09:23:00 [facility] ([facility]) Hospitalist History Physical REPORT#:[id number] REPORT STATUS: Signed DATE:08/18/22 TIME: 922 PATIENT: KARMA ROWLAND UNIT #: [id number] ROOM/BED: [place] [address] : 63 AGE: 56 SEX: M ATTEND: Wilbert Ramires MD ADM AUTHOR: Wilbert Ramires MD * ALL edits or amendments must be made on the electronic/computer document * History of Present Illness HPI [...] 13 years old or older: Never Smoker Other social history: Local resident, Good social support Medication/Allergy-Vaccine Hx Medications: please see MAR's Allergies: Coded Allergies: No Known Allergies (03/23/11) [...] ONE IV Sodium Chloride (NS 0.9%) 500 ML Heparin Sodium (HEPARIN 5000 UNITS/ML) 5,000 UNIT Q8HR SUBQ Piperacillin Sod/Tazobactam Sod (ZOSYN 3.375GM) 3.375 GM Q8H IV Sodium Chloride (SODIUM CHLORIDE 0.9% 100 ML) 100 ML Dextrose/Water (DEXTROSE 10% IN WATER) 250 ML ASDIR PRN IV (CKD) Dextrose/Water (Dextrose 10% 1,000 mL) 1,000 ML ASDIR IV Insulin Human Regular (HumuLIN R) 100 UNIT ASDIR IV (CKD) Sodium Chloride (SODIUM CHLORIDE 0.9%) 99 ML Magnesium Sulfate (MAGNESIUM SULFATE 2GM/SWFI 50ML) 50 [...] no heave Respiratory: aerating well, clear to auscultation, symmetric expansion, no distress Abdomen: non-tender, normal bowel sounds, soft, no distention Genitourinary: no bladder distention Extremities: right foot markedly swollen with violacous disoloratoin of dorsum and lateral area extending to ankle. There were blisters with some blisters were open. Neuro/QUANTITATIVE ANALYST: alert, oriented X 3, normal speech Skin: no rash Psychiatry: normal affect, normal judgment/insight, normal mood Results Findings/Data: Laboratory Tests: 08/18 [...] Available] 08/18/22 0205: [Embedded Image Not Available] 08/18/22202: [Embedded Image Not Available] Diagnosis, Assessment Plan [...] and Zosyn - podiatry eval - d.w Nuvia Hernandez - likely will need debridement - [...] patient care (minutes): 60 at 0932 RPT #:[id number] END OF REPORT [facility] 2022-08-18 06:03:00 [facility] ([facility]) Pharmacy Prog.Note-Vancomycin REPORT#:[id number] REPORT STATUS: Signed DATE:08/18/22 TIME: 06 PATIENT: KARMA ROWLAND UNIT #: [id number] ROOM/BED: [place] [address] : 63 AGE: 56 SEX: M ATTEND: Wilbert Ramires MD ADM AUTHOR: Beti Willoughby [facility] * ALL edits or amendments must be made on the electronic/computer document * Vancomycin Vancomycin Medication Therapy Goal: trough 12-18 mcg/mL Indication for treatment: Empiric Day of therapy: Day 1 Weight: Actual weight (kg): 77.7 (STATED/REPORTED) VS and I/O: Vital Signs Date Temp Pulse Resp B/P B/P Mean Pulse Ox FiO2 08/18 97.8 85-97 16-28 90-112/51-59 65-80 97-100 72 hours ending at 0708/18 0708/17 19008/17 1900 08/16 08/15 07 1900 Intake Total Output Total Balance Patient 77.7 kg Weight Weight Stated/Rep orted Measuremen t Method 72 Hour I O Total 08/18 07 Intake Total Output Total Balance Labs: Laboratory [...] underlying process or neoplasm. Impression By: TipTPPaola Adams M.D. RADIOLOGY - XR FOOT 3 + V RT 08/18 0238 Report Impression - Status: SIGNED Entered: 08/18/2022 0358 IMPRESSION: No acute osseous findings. No convincing evidence for osteomyelitis. MRI is more sensitive for detecting osteomyelitis. Impression By: Ankur Ladd M.D. CAT SCAN - CT ABD PELVIS W/CONT 08/18 0339 Report Impression - Status: SIGNED Entered: 08/18/2022 0546 IMPRESSION: 3.3 cm hypodensity in the left posterior prostate or seminal vesicle. This could represent an abscess. Contrast-enhanced MRI of the pelvis would be helpful for further evaluation. No acute intra-abdominal findings otherwise. Impression By: Ankur Ladd M.D. Drug admin history: Medication(s) Ordered: Anti-Infective Agents Sig/Jan Start time Last Medication Dose Route Stop Time Status Admin Vancomycin HCl 1,750 MG ONCE ONE 08/18 08 AC Sodium Chloride 500 ML IV 08/18 0944 Piperacillin Sod/ 3.375 GM Q8H 08/18 06 AC 08/18 Tazobactam Sod IV 08/25 0559 [...] Imaging * 08/18 chest x-ray: Ill-defined somewhat nodular opacity measuring 3.2 cm laterally in the right mid lung suspicious for rounded pneumonia given provided history, but underlying neoplasm can not be excluded. * 08/18 foot x-ray: No acute osseous findings. No convincing evidence for osteomyelitis. * abd/pelvis CT: 3.3 cm hypodensity in the left posterior prostate or seminal vesicle. This could represent an abscess. Plan * loading dose of vancomycin 1750 mg ( 23 mg/kg) IV once * maintenance dose of vancomycin 1000 ( 13 mg/kg) IV q24h * if renal function stable, plan for steady state trough before the 4th dose * f/u cultures * pharmacy will continue to follow and adjust as appropriate Thank you, Andrew London MD, for this consult. at 0704 RPT #:[id number] END OF REPORT [facility] 2022-08-18 05:37:00 [facility] ([facility]) Critical Care Consult Note REPORT#:[id number] REPORT STATUS: Signed DATE:08/18/22 TIME: 536 PATIENT: KARMA ROWLAND UNIT #: [id number] ROOM/BED: [place] [id number] : 63 AGE: 56 SEX: M ATTEND: Wilbert Ramires MD ADM AUTHOR: Andrew London MD * ALL edits or amendments must be made on the electronic/computer document * History - Adult longitudinal Allergies: Coded Allergies: No Known Allergies (03/23/11) Diagnosis, Assessment Plan Free text DxA P: 56 year old male unknown PMH who presented 08/18 with fever, AMS. He was found to have labs consisent with DKA with AGAP 21 and glucose 700+. 24 HR events: Physical exam: Awake, alert, lungs are clear to auscultation, heart is regular rate and rhythm, abdomen is soft, extremities no edema Neuro: no issues CV: no issues Pulm: no issues GI: no issues Renal: *elevated cr - likely secondary to dka, cont IVF, trend cr Heme: *anemia - trend HH, will need outpatient eval for etiology ID: *leukocytosis - start empiric abx, check cultures Endo: *DKA - start protocol, check a1c, acetone MSK Nutr: NPO GI px: DVT px: hep sq Bowel regimen: Dispo: ICU I have seen and examined the patient and spent 39 minutes evaluating and managing the patient exclusive of time spent on procedures. at 0703 RPT #:[id number] END OF REPORT [facility] 2022-08-18 05:14:00 [facility] ([facility] EMERGENCY PROVIDER REPORT REPORT#:[id number] REPORT STATUS: Signed DATE:08/18/22 TIME: 0514 PATIENT: KARMA ROWLAND UNIT #: [id number] ROOM/BED: [place] [address] AGE: 56 SEX: M PCP PHYS: No Primary or Family Physician SERVICE AUTHOR: Teodoro Perez MD * ALL edits or amendments must be made on the electronic/computer document * HPI-General Illness Free Text HPI Notes Free Text HPI Notes 56 yo male with history of non-insulin dependent diabetes comes to the emergency department with increasing confusion. Patient presents with family. He has generally declined over the last 3-4 days, though he says that he has felt bad for about 2 weeks. Now having fevers, dizziness and some discomfort in the chest. He has not been compliant with medications for his diabetes. Also notes an open blister wound on the right foot. General Initial Greet Date/Time 08/18/227 Presentation Chief Complaint Altered mental status Review of Systems ROS Statements All systems rev neg except as marked. Review of Systems Constitutional Reports: Chills, Weakness - generalized. Cardiovascular Reports: Chest pain. Skin Reports: Rash. Neurologic Reports: Dizziness. Past Medical History - Adult Stated Complaint DIZZY, ABD PAIN, CHEST PAIN, FEVER Allergies Coded Allergies: No Known Allergies (03/23/11) Review of Nursing Notes Rev avail, and agree Smoking status for patients 13 years old or older: Never Smoker Physical Exam Vital Signs Vital [...] air 08/18 0152 Temp 36.6 08/18 0152 Review of Vital Signs Reviewed, Vital signs normal Physical Exam General/Const General/Const Awake, Alert, No acute distress, Well appearing, Cooperative, Not toxic appearing MS Head Head Atraumatic, Normocephalic Eyes Eyes No scleral icterus, Conjunctiva NL Ears/Nose/Throat Ears/Nose/Throat Airway patent, Pharynx NL Mouth Mucous membranes dry. MS Neck Neck Supple, No meningismus, No swelling Resp/Chest Respiratory/Chest Breath sounds NL, Breath sounds = bilat, No respiratory distress, No rhonchi, No wheezing Text/Dict Notes Tachypnic Cardiovascular Cardiovascular Regular rhythm, Heart sounds NL, No murmurs, Peripheral circulation NL Heart Rate/Rhythm Tachycardia. Abdomen/GI Abdomen/GI Soft, Non-tender, No guarding, No rebound, No distention MS Lower Extrem Text/Dict Notes [...] MRI is more sensitive for detecting osteomyelitis. Impression By: Ankur - Jay Ladd M.D. CAT SCAN - CT ABD PELVIS W/CONT 08/18 0339 Report Impression - Status: SIGNED Entered: 08/18/2022 0546 IMPRESSION: 3.3 cm hypodensity in the left posterior prostate or seminal vesicle. This could represent an abscess. Contrast-enhanced MRI of the pelvis would be helpful for further evaluation. No acute intra-abdominal findings otherwise. Impression By: Ankur - Jay Ladd M.D. Lab Imaging Statement Laboratory radiographic studies reviewed and considered in the medical decision-making. ECG #1 Interpretation [...] of this entry have been reviewed. Clinical Impression Clinical Impression Primary Impression: DKA (diabetic ketoacidosis) Secondary Impressions: ERIKA (acute kidney injury), Cellulitis of foot, right, Hyperglycemia Disposition Decision Admit Admit Physician Name Wilbert Ramires MD )( Admission Accepts Yes )( Accepted Time 512 )( Accepted Date 08/18/22 Discharge/Care Plan Admit Note I have spoken with the patient and/or caregivers. I have explained the patient's condition, diagnoses and treatment plan based on the [...] capability of the emergency department. The patient will be transported for further care and management or will be moved to an observation or inpatient service. I have communicated with the staff or medical practitioner taking over this patient's care. Critical Care Time Spent (minutes): 37 Services Performed Patient management by me, Time spent at bedside, Reviewing test results, Reviewing imaging, Discussing patient care, Documentation in record, Time with fam/surrogate Separately billable procedures excluded from time. Patient was critically ill due to: DKA My treatment and management were: Fluids, antibiotics, Initiation of insulin drip and IV sodium bicarb. at 2233 [facility] #:[id number] END OF REPORT [facility]
[2025-01-07 20:07] LABS: Absolute Lymphocytes (CBC) 0.7 K/uL (0.7-4.9); Hematocrit 31.9 % (39.6-49.0); Hemoglobin 10.5 g/dL (13.6-17.9); MCH 28.7 pg (27.0-35.0); MCHC 32.9 g/dL (32.0-36.0); MCV 87.2 fL (80-100); MPV 9.2 fL (7.6-11.3); Nucleated RBC Absolute Count 0.0 (0-0); Nucleated Red Blood Cells % 0.0 % (0-0); RBC Red Blood Cell Count 3.65 M/uL (4.33-5.43); White Blood Count 14.70 thou/uL (4.3-10.9)
[2025-01-07 20:27] LABS: ALT/SGPT 30.0 U/L (16-61); AST/SGOT 11.0 U/L (15-37); Albumin 3.1 g/dL (3.4-5.0); Albumin/Globulin Ratio 0.7 (1.1-1.8); Alkaline Phosphatase 176.0 U/L (45-117); Anion Gap 15.9 mEq/L (5.0-15.0); BUN Blood Urea Nitrogen 41.0 mg/dL (7-18); Bilirubin Indirect, Calculated 0.6 mg/dL (0.2-0.8); Globulin 4.5 g/dL (2.3-3.5); Magnesium 2.9 mg/dL (1.6-2.4); Potassium 3.9 mEq/L (3.5-5.1); Troponin High Sensitivity 6.1 pg/mL (<58.9)
[2025-01-07 20:28] LABS: Glucose Level 607.0 mg/dL (74-106)
[2025-01-07 20:35] LABS: Blood Morphology Comment NOT SEEN (NOT SEEN); White Blood Cell Scan OK (OK)
--- NOTE | 2025-01-07 21:12 | RAD REPORT ---
Procedure: Chest Single View HISTORY: Cough COMPARISON: 2022 FINDINGS: The lungs appear clear of acute infiltrate. No significant pleural effusion noted. The heart is normal size. IMPRESSION: No acute abnormality is displayed.
[2025-01-07] MEDS ORDERED: NA CHLORIDE 0.9% 250 ML ONE (21:41)
[2025-01-07] MEDS ORDERED: VANCOMYCIN 1 GM/VIAL ONE (21:42)
[2025-01-07 21:56] LABS: PT Prothrombin Time 12.3 SECONDS (10-13.0); PTT, Activated Partial Thromb 25.8 SECONDS (27.2-37.4); Protime INR 1.09
[2025-01-07] MEDS ORDERED: INSULIN REGULAR (HUMAN) 100 UNIT/ML ONE (22:14)
[2025-01-07] MEDS ORDERED: POTASSIUM CL SA 10 MEQ TAB PO ONE (22:14)
--- NOTE | 2025-01-07 22:20 | EDPHYS ---
Physician Documentation [facility] Name: Delroy Quintero Age: 59 yrs Sex: Male : 1965 Arrival Date: 01/07/2025 Time: 19:22 Bed 14 Private MD: ED Physician Ze Charles HPI: 01/07 23:08 This 59 yrs old Male presents to ER via Ambulatory with complaints of General ms3 Weakness, Skin Problem - on right leg. 23:08 59-year-old male with past medical history of chronic kidney disease, anemia, diabetes, ms3 hypertension, hypercholesterolemia presents to the emergency department for generalized weakness and dizziness that has been ongoing for 3 days. Patient endorses subjective fevers, chills, cough, nausea. He denies pain, vomiting, diarrhea. Patient notes he has also had erythema on his right leg with an ulcer on his AKA. Historical: - Allergies: 19:37 No Known Allergies; dd2 - PMHx: 19:37 ERIKA; Anemia; diabetes mellitus; Hypertensive disorder; Hypercholesterolemia; Kidney dd2 disease; - PSHx: 19:37 R BKA; dd2 - Immunization history:: Adult Immunizations unknown. - Infectious Disease History:: Denies. - Social history:: Smoking status: Patient denies any tobacco usage or history of. ROS: 23:08 Cardiovascular: Negative for chest pain, and palpitations. ms3 23:08 Constitutional: Positive for body aches, chills, fever, 23:08 Respiratory: Positive for cough, Negative for dyspnea on exertion, shortness of breath, 23:08 Abdomen/GI: Positive for nausea, Negative for abdominal pain, vomiting, diarrhea, constipation, 23:08 Skin: Positive for rash, ulceration, Exam: 23:08 Constitutional: This is a well developed, well nourished patient who is awake, alert, ms3 and in no acute distress. Chest/axilla: Normal chest wall appearance and motion. Nontender with no deformity. Cardiovascular: Regular rate and rhythm with a normal S1 and S2. No gallops, murmurs, or rubs. Normal PMI, no JVD. No pulse deficits. Respiratory: Lungs have equal breath sounds bilaterally, clear to auscultation and percussion. No rales, rhonchi or wheezes noted. No increased work of breathing, no retractions or nasal flaring. Abdomen/GI: Soft, non-tender, with normal bowel sounds. No distension or tympany. No guarding or rebound. No evidence of tenderness throughout. 23:08 Skin: cellulitis, that is moderate, on the right leg, Mild ulceration of right AKA suture line with moderate medial erythema of the lower stump. 23:08 ECG was reviewed by the Attending Physician. ms3 23:20 Musculoskeletal/extremity: Extremities: Right AKA, ms3 Vital Signs: 19:33 BP 148 / 78; Pulse 91; Resp 16; Temp 98.7; Pulse Ox 99% ; Weight 79.38 kg; Pain 0/10; dd2 20:38 BP 155 / 77; Pulse 95; Resp 16; Pulse Ox 98% ; hm5 21:30 BP 143 / 81; Pulse 94; Resp 19; Pulse Ox 100% on R/A; hm5 22:30 BP 143 / 69; Pulse 88; Resp 18; Pulse Ox 100% on R/A; hm5 23:30 BP 148 / 71; Pulse 96; Resp 19; Pulse Ox 99% on R/A; hm5 01/08 00:30 BP 142 / 63; Pulse 90; Resp 17; Pulse Ox 100% on R/A; hm5 01/07 19:33 Pain Scale: Adult dd2 MDM: 01/07 19:30 Medical Screening Exam initiated ms3 23:08 Differential Diagnosis Cellulitis vs electrolyte abnormality vs ACS vs Hyperglycemia vs ms3 Anemia. Data reviewed: vital signs, nurses notes, lab test result(s), EKG, radiologic studies, and as a result, I will discharge patient. Consideration of Admission/Observation Patient was admitted/placed on observation. Management of patient was discussed with the following: Hospitalist: Avinash Vuong. I considered the following discharge prescriptions or medication management in the emergency department Medications were administered in the Emergency Department. See MAR. Independent interpretation of the following test(s) in the Emergency Department EKG: See my EKG interpretation above X-Ray: My interpretation is Chest x-ray image reviewed by me does not reveal pneumonia. Counseling: I had a detailed discussion with the patient and/or guardian regarding the historical points, exam findings, and any diagnostic results supporting the discharge/admit diagnosis, lab results, radiology results, the need for further work-up and treatment in the hospital. Special discussion:. ED course: Discussed necessity for admission secondary to elevated white blood count, hyperglycemia, cellulitis of distal stump with mild ulceration. Patient understands agrees with plan.. 01/07 19:47 Order name: Basic Metabolic Panel; Complete Time: 21:06 ms3 01/07 19:47 Order name: CBC with Diff; Complete Time: 21:06 ms3 01/07 19:47 Order name: LFT's; Complete Time: 21:06 ms3 01/07 19:47 Order name: Magnesium; Complete Time: 21:06 ms3 01/07 19:47 Order name: Troponin HS; Complete Time: 21:06 ms3 01/07 20:10 Order name: CBC Smear Scan; Complete Time: 21:06 EDMS 01/07 21:24 Order name: BNP; Complete Time: 22:08 ms3 01/07 21:24 Order name: Blood Culture Adult (2) ms3 01/07 21:24 Order name: Lactate w/ 2H reflex if indic.; Complete Time: 22:08 ms3 01/07 21:24 Order name: Protime (+inr); Complete Time: 21:57 ms3 01/07 21:24 Order name: Ptt, Activated; Complete Time: 21:57 ms3 16 22:05 Order name: Glucose, Ancillary Testing; Complete Time: 22:08 EDMS 01/07 23:22 Order name: Wound Culture EDMS 01/07 23:27 Order name: CBC with Automated Diff EDMS 01/07 23:27 Order name: CBC with Automated Diff EDMS 01/07 23:27 Order name: CBC with Automated Diff EDMS 16 23:27 Order name: CBC with Automated Diff EDMS 01/07 23:27 Order name: CBC with Automated Diff EDMS 16 23:27 Order name: Comprehensive Metabolic Panel EDMS 01/07 23:27 Order name: Comprehensive Metabolic Panel EDMS 16 23:27 Order name: Comprehensive Metabolic Panel EDMS 01/07 23:27 Order name: Comprehensive Metabolic Panel EDMS 01/07 23:27 Order name: Comprehensive Metabolic Panel EDMS 01/07 23:27 Order name: Phosphorus EDMS 01/07 23:27 Order name: Phosphorus EDMS 01/07 23:27 Order name: Phosphorus EDMS 01/07 23:27 Order name: Phosphorus EDMS 01/07 23:27 Order name: Phosphorus EDMS 0816 23:30 Order name: Glucose, Ancillary Testing EDMS 01/07 19:47 Order name: XRAY Chest (1 view); Complete Time: 21:57 ms3 01/07 23:22 Order name: [facility] EDAZ 01/07 19:47 Order name: Cardiac monitoring; Complete Time: 20:01 ms3 01/07 19:47 Order name: EKG - Nurse/Tech; Complete Time: 20:01 ms3 01/07 19:47 Order name: IV Saline Lock; Complete Time: 20:03 ms3 01/07 19:47 Order name: Labs collected and sent; Complete Time: 20:03 ms3 01/07 19:47 Order name: O2 Per Protocol; Complete Time: 20:03 ms3 01/07 19:47 Order name: O2 Sat Monitoring; Complete Time: 20:03 ms3 01/07 21:24 Order name: Accucheck; Complete Time: 21:45 ms3 01/07 21:24 Order name: IV Saline Lock - Large Bore; Complete Time: 21:50 ms3 01/07 21:24 Order name: Vital Signs; Complete Time: 21:39 ms3 EC:08 Rate is 93 beats/min. Rhythm is regular. QRS Diana is Normal. FL interval is normal. QRS ms3 interval is normal. Clinical impression: Normal ECG. Interpreted by me. Reviewed by me. Administered Medications: 21:52 Drug: vancoMYCIN IVPB 1 grams IVPB once over 2 hrs Route: IVPB; Infused Over: 2 hrs; [facility] Site: left antecubital; 01/08 00:09 Follow up: IV Status: Completed infusion; IV Intake: 250ml [facility] 01/07 22:18 Drug: Insulin Regular Human Sub-Q 10 units Sub-Q once {Co-Signature: [email or web address] (elbert Campos RN).} Route: Sub-Q; Site: abdomen; 01/08 00:09 Follow up: Response: No adverse reaction [facility] 01/07 22:18 Drug: Potassium Chloride PO 20 mEq PO once Route: PO; [facility] 22:40 Follow up: Response: No adverse reaction [facility] Disposition Summary: 01/07/25 22:19 Hospitalization Ordered Notes: Hospitalization Status: Inpatient Admission ms3 Provider: Madan Haney ms3 Location: Telemetry/MedSurg (Inpatient) ms3 Condition: Stable ms3 Problem: new ms3 Symptoms: are unchanged ms3 Bed/Room Type: Standard ms3 Room Assignment: 215(01/07/25 23:24) rv1 Diagnosis - Cellulitis of right lower limb ms3 - Hyperglycemia, unspecified ms3 - Anemia, unspecified ms3 - Chronic kidney disease, unspecified ms3 Forms: - Medication Reconciliation Form ms3 - SBAR form ms3 - Leadership Thank You Letter ms3 Signatures: Dispatcher [employer] EDMS Ze Charles, DO ms3 Lola Fuller rv1 NADEGE MAYER RN RN dd2 Suki Su RN RN hm5 Dylan Campos RN [id number] Corrections: (The following items were deleted from the chart) 19:47 19:47 BASIC METABOLIC PANEL+C.LAB.BRZ ordered. EDMS EDMS 19:47 19:47 CBC+H.LAB.BRZ ordered. EDMS EDMS 19:47 19:47 HEPATIC FUNCTION+C.LAB.BRZ ordered. EDMS EDMS 19:47 19:47 MAGNESIUM+C.LAB.BRZ ordered. EDMS EDMS 19:47 19:47 Troponin High Sensitivity+C.LAB.BRZ ordered. EDMS EDMS 19:47 19:47 Chest Single View+RAD.RAD.BRZ ordered. EDMS EDMS 21:24 21:24 PROBNP+C.LAB.BRZ ordered. EDMS EDMS 21:24 21:24 BLOOD CULTURE*+BA.LAB.BRZ ordered. EDMS EDMS 21:24 21:24 LACTATE+C.LAB.BRZ ordered. EDMS EDMS 21:24 21:24 PROTIME (+INR)+COAG.LAB.BRZ ordered. EDMS EDMS 21:24 21:24 PTT, ACTIVATED+COAG.LAB.BRZ ordered. EDMS EDMS 23:20 22:19 ms3 rv1 23:20 23:08 Constitutional: This is a well developed, well nourished patient who is awake, ms3 alert, and in no acute distress. Chest/axilla: Normal chest wall appearance and motion. Nontender with no deformity. Cardiovascular: Regular rate and rhythm with a normal S1 and S2. No gallops, murmurs, or rubs. Normal PMI, no JVD. No pulse deficits. Respiratory: Lungs have equal breath sounds bilaterally, clear to auscultation and percussion. No rales, rhonchi or wheezes noted. No increased work of breathing, no retractions or nasal flaring. Abdomen/GI: Soft, non-tender, with normal bowel sounds. No distension or tympany. No guarding or rebound. No evidence of tenderness throughout. ms3 23:24 23:20 201 rv1 rv1
--- NOTE | 2025-01-07 22:20 | ER ---
Nurse's Notes [facility] Name: Delroy Quintero Age: 59 yrs Sex: Male : 1965 Arrival Date: 01/07/2025 Time: 19:22 Bed 14 Private MD: Diagnosis: Cellulitis of right lower limb;Hyperglycemia, unspecified;Anemia, unspecified;Chronic kidney disease, unspecified Presentation: 01/07 19:33 Chief complaint: Patient states: FEELS WEAK AND DIZZY, NO APPETITE, CHILLS, NAUSEA FOR dd2 3 DAYS. Coronavirus screen: At this time, the client does not indicate any symptoms associated with coronavirus-19. Ebola Screen: No symptoms or risks identified at this time. Initial Sepsis Screen: Does the patient meet any 2 criteria? No. Patient's initial sepsis screen is negative. Does the patient have a suspected source of infection? No. Patient's initial sepsis screen is negative. Risk Assessment: Do you want to hurt yourself or someone else? Patient reports no desire to harm self or others. Onset of symptoms was January 04, 2025. 19:33 Method Of Arrival: Ambulatory dd2 19:33 Acuity: GUS 3 dd2 Triage Assessment: 19:37 General: Appears in no apparent distress. uncomfortable, Behavior is calm, cooperative, dd2 appropriate for age. Pain: Denies pain. Neuro: Reports weakness in GENERALIZED. GI: Reports nausea. 19:37 Derm: Wound noted RT STUMP (RT BKA). Musculoskeletal: Amputation of right leg. dd2 Historical: - Allergies: 19:37 No Known Allergies; dd2 - PMHx: 19:37 ERIKA; Anemia; diabetes mellitus; Hypertensive disorder; Hypercholesterolemia; Kidney dd2 disease; - PSHx: 19:37 R BKA; dd2 - Immunization history:: Adult Immunizations unknown. - Infectious Disease History:: Denies. - Social history:: Smoking status: Patient denies any tobacco usage or history of. Screenin:09 [facility] ED Fall Risk Assessment (Adult) History of falling in the last 3 months, hm5 including since admission No falls in past 3 months (0 pts) Confusion or Disorientation No (0 pts) Intoxicated or Sedated No (0 pts) Impaired Gait No (0 pts) Mobility Assist Device Used No (0 pt) Altered Elimination No (0 pt) Score/Fall Risk Level 0 - 2 = Low Risk. Abuse screen: Denies threats or abuse. Denies injuries from another. Nutritional screening: No deficits noted. Tuberculosis screening: No symptoms or risk factors identified. Assessment: 20:08 General: Appears in no apparent distress. well groomed, well developed, well nourished, [facility] Behavior is calm, cooperative, appropriate for age. Pain: Denies pain. Neuro: Reports weakness since today generalized. Cardiovascular: Reports nausea, Denies chest pain. Respiratory: No deficits noted. GI: Reports nausea. : No deficits noted. No signs and/or symptoms were reported regarding the genitourinary system. EENT: No deficits noted. No signs and/or symptoms were reported regarding the EENT system. Derm:. Musculoskeletal: No deficits noted. No signs and/or symptoms reported regarding the musculoskeletal system. 21:59 Derm: redness and swelling to right bka stump x3 days. 5 Vital Signs: 19:33 BP 148 / 78; Pulse 91; Resp 16; Temp 98.7; Pulse Ox 99% ; Weight 79.38 kg; Pain 0/10; dd2 20:38 BP 155 / 77; Pulse 95; Resp 16; Pulse Ox 98% ; hm5 21:30 BP 143 / 81; Pulse 94; Resp 19; Pulse Ox 100% on R/A; hm5 22:30 BP 143 / 69; Pulse 88; Resp 18; Pulse Ox 100% on R/A; hm5 23:30 BP 148 / 71; Pulse 96; Resp 19; Pulse Ox 99% on R/A; 5 01/08 00:30 BP 142 / 63; Pulse 90; Resp 17; Pulse Ox 100% on R/A; 5 01/07 19:33 Pain Scale: Adult dd2 ED Course: 01/07 19:27 Patient arrived in ED. im 19:29 Ze Charles DO is Attending Physician. ms3 19:37 Triage completed. dd2 19:37 Arm band placed on right wrist. dd2 19:47 Suki Su, RN is Primary Nurse. 5 20:01 EKG done, by ED staff, reviewed by Ze Charles DO. oe 20:10 Patient has correct armband on for positive identification. Bed in low position. Call [facility] light in reach. Side rails up X 1. Provided Education on: plan of care. traffic monitor specialist on. Pulse ox on. NIBP on. 20:10 No provider procedures requiring assistance completed. Inserted saline lock: 20 gauge hm5 in left antecubital area, using aseptic technique. Blood collected. Flushed with 10 mL NS. 20:29 XRAY Chest (1 view) In Process Unspecified. EDMS 20:43 IV discontinued, intact, bleeding controlled, No redness/swelling at site. Pressure 5 dressing applied. 22:19 Madan Haney is Hospitalizing Provider. ms3 Administered Medications: 21:52 Drug: vancoMYCIN IVPB 1 grams IVPB once over 2 hrs Route: IVPB; Infused Over: 2 hrs; hm5 Site: left antecubital; 01/08 00:09 Follow up: IV Status: Completed infusion; IV Intake: 250ml 5 01/07 22:18 Drug: Insulin Regular Human Sub-Q 10 units Sub-Q once {Co-Signature: [email or web address] (elbert Campos RN).} Route: Sub-Q; Site: abdomen; 01/08 00:09 Follow up: Response: No adverse reaction 5 01/07 22:18 Drug: Potassium Chloride PO 20 mEq PO once Route: PO; hm5 22:40 Follow up: Response: No adverse reaction [facility] Medication: 20:10 VIS not applicable for this client. hm5 Intake: 01/08 00:09 IV: 250ml; Total: 250ml. hm5 Outcome: 01/07 20:43 Admitted to Med/surg accompanied by tech, via wheelchair, room 215, with chart, Report hm5 called to sbar faxed to second floor at 0014 Condition: stable Instructed on the need for admit, Demonstrated understanding of need for admission 22:19 Decision to Hospitalize by Provider. ms3 01/08 00:54 Condition: stable hm5 00:56 Patient left the ED. [facility] Signatures: Dispatcher [employer] EDMS Vic Taylor Marcus, DO DO ms3 Eun Brantley DIANA RN RN dd2 Suki Su RN RN [email or web address] Dylan Campos RN [email or web address] Corrections: (The following items were deleted from the chart) 00:08 08 22:30 BP 143 / 69; Pulse 18bpm; Resp 18bpm; Pulse Ox 100% RA; 5 [facility] 01/08 00:55 01/07 20:43 Discharged to home ambulatory, 5 [facility] 01/08 00:56 08 20:43 Discharge instructions given to patient, Instructed on discharge [facility] instructions, follow up and referral plans. glucose management/diabetes Demonstrated understanding of instructions, follow-up care, diabetes/glucose management [facility]
[2025-01-07] MEDS: VANCOMYCIN 1 GM in NA CHLORIDE 0.9% 250 ML IVPB SCH (23:17)
[2025-01-07] MEDS ORDERED: MORPHINE 4 MG/ML SYR IV PRN (23:30)
--- NOTE | 2025-01-07 23:31 | P.HP ---
Certification for Inpatient Patient admitted to: Inpatient With expected LOS: >2 Midnights Patient will require the following post-hospital care: None Practitioner: I am a practitioner with admitting privileges, knowledge of patient current condition, hospital course, and medical plan of care. Services: Services provided to patient in accordance with Admission requirements found in Title 42 Section 412.3 of the Code of Federal Regulations Patient History Date of Service: 01/07/25 Reason for admission: Right thumb cellulitis/wound, hyperglycemia,ERIKA History of Present Illness: Patient is a 59-year-old male with past medical history of type 2 diabetes mellitus, diabetic neuropathy, anemia, CKD followed by nephrology Dr. Newton, essential hypertension, right leg wound and post right BKA. Patient reports to the ER complaining of generalized body weakness, dizziness, chills, subjective fever with associated nausea but no vomiting for past 3 days. Patient also complaint of pain on his right stump, with erythema, and swelling with no drainage. According to patient present at bedside she states patient has not been eating adequate amount of nutrition, states he goes almost all day without eating, patient states he has loss of appetite, not also taking adequate amount of p.o. fluid. Patient dizziness and weakness may be related to poor nutrition, and p.o. fluid intake. Not sure if patient has been taking his medications adequate, patient initial serum glucose was 607, with no major anion gap elevation, WBC 14.70 with a left shift, BNP 1408. Patient has cellulitis to his right stump with an open wound no malodorous or drainage noted at this time. Allergies No Known Allergies Allergy (Verified 11/12/23 10:18) Home medications list reviewed: No Home Medications: Amitriptyline [Elavil*] 25 mg PO BEDTIME 10/25/22 Gabapentin 100 mg PO TID 10/25/22 Hydralazine HCl 100 mg PO Q8H 10/25/22 cloNIDine HCL [Clonidine HCl] 0.1 mg PO BID 10/25/22 Losartan Potassium [Cozaar*] 50 mg PO DAILY #30 tab 11/01/22 Insulin Aspart [Novolog Flexpen] 10 unit SQ BEDTIME PRN 11/11/23 - Past Medical/Surgical History Diabetic: Yes -: Type 2 Diabetes, Insulin-Dependent -: Hypertension -: Anemia -: Hyperlipidemia -: Diabetic neuropathy. -: Right BKA Psychosocial/ Personal History: Patient is . - Family History Mother -: Diabetes Brother -: Hypertension, Diabetes Sister -: Heart disease, Diabetes - Social History Smoking Status: Former smoker Alcohol use: No CD- Drugs: No Caffeine use: Yes Place of Residence: Home Review of Systems 10-point ROS is otherwise unremarkable Musculoskeletal: Other (Right stump cellulitis and open wound.) Integumentary: Other (Right stump cellulitis with open wound.) Physical Examination - Physical Exam General: Oriented x3, Cooperative HEENT: Atraumatic, Normocephalic, PERRLA, Mucous membr. moist/pink, Sclerae nonicteric Neck: Supple, 2+ carotid pulse no bruit, No LAD, Without JVD or thyroid abnormality Respiratory: Clear to auscultation bilaterally, Normal air movement Cardiovascular: Normal pulses, Regular rate/rhythm, Normal S1 S2, Abnormal S3, No gallops, No rubs, No murmurs Gastrointestinal: Normal bowel sounds, Soft and benign, W/out hepatomegaly, No ascites, No tenderness, No masses, No rebound, No guarding Musculoskeletal: Other (Right BKA with cellulitis and open wound.) Integumentary: No warmth, No cyanosis, Tenderness/swelling (Right BKA with cellulitis open wound), Erythema, Warmth Neurological: Normal speech, Normal tone, Sensation intact, Cranial nerves 3-12 intact, Normal reflexes 2+, Normal affect Lymphatics: No axilla or inguinal lymphadenopathy - Studies Laboratory Data (last 24 hrs) 01/07/25 01/07/25 01/07/25 21:34 20:01 20:01 WBC 14.70 H Hgb 10.5 L Hct 31.9 L Plt Count 209 PT 12.3 INR 1.09 APTT 25.8 L Sodium 129 L Potassium 3.9 BUN 41 H Creatinine 2.91 H Glucose 607 H* Magnesium 2.9 H Total Bilirubin 0.8 AST 11 L ALT 30 Alkaline Phosphatase 176 H Male Exam - Male Exam Inguinal exam: No hernias Assessment and Plan - Plan Patient is a 59-year-old male who presented to the ER complaining of right stump pain, swelling and erythema, and generalized weakness. Patient denies of any chest pain or shortness of breath. Lungs clear bilateral with no adventitious breath sounds. (1)Cellulitis right stump with open wound. -Ancef 1 g IV every 8 hours. -Vancomycin 1 g IV every 24 hours. -Follow-up wound culture on admission. -Consult wound care team. -Blood culture done. (2)Type 2 diabetes mellitus. Patient initial serum glucose in ER was 607 non- DKA. Patient has severe knowledge deficit in managing his diabetes, including diet and medications. -Order Lantus 20 units subcu daily. -ACHS, moderate sliding scale coverage. -Did an extensive teaching to the patient and present at bedside on disease process management, but more importantly the importance of good nutritional intake, medication management, also explained to the patient the effect of noncompliance and poor management to his cardiac, renal, and other endocrine effect. Patient and voiced understanding. -Dietary consult. (3)Acute on chronic kidney disease. Patient seen outpatient by nephrology Dr. Newton. Patient states he is able to void appropriately. -Consult nephrology . -IV half NS at 75ml/hr. -Follow-up CMP. (4) DVT prophylaxis. -Heparin 5 daily subcu every 8 hours. (5)Possible new onset CHF. Patient states he does not have any history of CHF. Patient BNP 1408. (5)Explained the entire treatment plan to the patient, present at bedside, solicit questions answered and voiced understanding. Discharge Plan: Home Plan to discharge in: Greater than 2 days - Advance Directives Does patient have a Living Will: No Does patient have a Durable POA for Healthcare: No - Code Status/Comfort Care Code Status Assessed: Yes Code Status: Full Code Critical Care: No Time Spent Managing Pts Care (In Minutes): 55
[2025-01-08] MEDS: CEFAZOLIN 1 GM in NA CHLORIDE 0.9% 50 ML IVPB SCH ×2 (01:00→12:06)
[2025-01-08] MEDS: NACHLORIDE 0.45% 1,000 ML IV SCH (01:08)
[2025-01-08] MEDS: CEFAZOLIN 1 GM in NA CHLORIDE 0.9% 50 ML IVPB ONE (01:08)
[2025-01-08] MEDS: HEPARIN 5000 UNIT/ML 1 ML VIAL SQ SCH (01:09)
[2025-01-08] MEDS: INSULIN GLARGINE 100 UNIT/ML SQ ONE (02:02)
[2025-01-08] MEDS: VANCOMYCIN 250 MG in NA CHLORIDE 0.9% 100 ML IVPB ONE (04:10)
[2025-01-08 07:25] LABS: ALT/SGPT 24 U/L (16-61); Albumin 2.7 g/dL (3.4-5.0); Albumin/Globulin Ratio 0.7 (1.1-1.8); Alkaline Phosphatase 121 U/L (45-117); Anion Gap 12.0 mEq/L (5.0-15.0); BUN Blood Urea Nitrogen 37 mg/dL (7-18); Globulin 4.0 g/dL (2.3-3.5); Glucose Level 320 mg/dL (74-106); Potassium 4.0 mEq/L (3.5-5.1)
[2025-01-08 07:33] LABS: Absolute Lymphocytes (CBC) 1.5 K/uL (0.7-4.9); Hematocrit 29.3 % (39.6-49.0); Hemoglobin 9.6 g/dL (13.6-17.9); MCH 28.3 pg (27.0-35.0); MCHC 32.8 g/dL (32.0-36.0); MCV 86.2 fL (80-100); MPV 9.4 fL (7.6-11.3); Nucleated RBC Absolute Count 0.0 (0-0); Nucleated Red Blood Cells % 0.0 % (0-0); RBC Red Blood Cell Count 3.40 M/uL (4.33-5.43); White Blood Count 14.80 thou/uL (4.3-10.9)
[2025-01-08 07:44] LABS: AST/SGOT < 10 U/L (15-37)
[2025-01-08] MEDS: INSULIN GLARGINE 100 UNIT/ML SQ SCH (08:17)
[2025-01-08] MEDS: INSULIN REGULAR (HUMAN) 100 UNIT/ML SQ SCH (08:18)
--- NOTE | 2025-01-08 09:47 | P.PN ---
Subjective Date of Service: 01/08/25 Chief Complaint: Right thumb cellulitis/wound, hyperglycemia,ERIKA Subjective: Improving (Patient is feeling better. Pain is localized at the stump site.) Physical Examination - Vital Signs Temperature: 98.7 F Blood Pressure: 143/81 Pulse: 94 Respirations: 19 Pulse Ox (%): 99 - Physical Exam General: Alert, In no apparent distress, Cooperative HEENT: Atraumatic, Normocephalic Respiratory: Clear to auscultation bilaterally, Normal air movement Cardiovascular: No edema, Normal pulses, Regular rate/rhythm, Normal S1 S2 Musculoskeletal: Other (Stump site with mild erythema tenderness. No edema) Neurological: Normal speech - Studies Laboratory Data (last 24 hrs) 01/07/25 01/07/25 01/07/25 21:34 20:01 20:01 WBC 14.70 H Hgb 10.5 L Hct 31.9 L Plt Count 209 PT 12.3 INR 1.09 APTT 25.8 L Sodium 129 L Potassium 3.9 BUN 41 H Creatinine 2.91 H Glucose 607 H* Magnesium 2.9 H Total Bilirubin 0.8 AST 11 L ALT 30 Alkaline Phosphatase 176 H Assessment And Plan - Plan Assessment Patient is a peripheral vascular disease and diabetic neuropathy status post right BKA. He is admitted after he presented with generalized body weakness, chills and subjective fever. Patient is being treated for right BKA stump infection. He has responded to antibiotics so far. Sepsis Cellulitis Type 2 diabetes mellitus with hyperglycemia Diabetic neuropathy Hypertension Acute on chronic CKD stage III, baseline creatinine of 1.58 Plan: Continue current antibiotics Persistent leukocytosis. Will obtain ultrasound to rule out fluid collection or abscess Consult surgery if ultrasound result is compelling Otherwise, proceed with wound care Follow blood cultures Blood glucose control Follow hemoglobin A1c Continue scheduled Lantus and insulin sliding scale. Adjust as indicated Continuous IV fluid for ERIKA Avoid nephrotoxins HCTZ held Nephrology has been consulted Resume routine home medication
--- NOTE | 2025-01-08 15:13 | RAD REPORT ---
EXAM: Extremity Nonvascular Limited HISTORY: Right BKA stump infection, rule out abscess RIGHT COMPARISON: None TECHNIQUE: Sonographic grayscale and color flow imaging of the right amputation stump. FINDINGS: Focused ultrasound at the below the knee amputation stump. Subcutaneous edema is present. No fluid co llections identified. IMPRESSION: No fluid collection identified at the amputation stump. Nonspecific subcutaneous edema which could re flect a cellulitis.
[2025-01-08] MEDS: METRONIDAZOLE 500mg IVPB 500 MG/100 ML BAG IV SCH (18:30)
[2025-01-08] MEDS: ROSUVASTATIN 5 MG TAB PO SCH (20:39)
[2025-01-08] MEDS: AMITRIPTYLINE 25 MG TAB PO SCH (20:40)
--- NOTE | 2025-01-09 02:03 | CON ---
Chief Complaint: Acute kidney injury. History Of Present Illness: The patient is admitted to the hospital for stump cellulitis and wound. He was found to have hyperglycemia and acute kidney injury. He is a 59-year-old man with past medical history of type 2 diabetes mellitus, diabetic neuropathy, anemia, CKD, essential hypertension, right leg wound and status post right BKA. He came to emergency room complaining of generalized body weakness, dizziness, chills, subjective fever with associated nausea, but he denies vomiting. The patient had right stump pain without erythema or swelling with no drainage. According to patient's , he has not been eating well, but denies nausea, vomiting. He had decreased appetite, poor p.o. intake. The patient was complaining of dizziness and weakness. He denied nonsteroidal anti-inflammatory medication. He was found to have severe hyperglycemia. Blood glucose was 607. WBC was elevated to 14.7. BNP 1408. Patient is on antibiotics for cellulitis of the right stump with open wound and primary team is managing antibiotics. Past Medical History: Diabetes mellitus insulin dependent, hypertension, anemia, hyperlipidemia, diabetic neuropathy, right BKA, type 2 diabetes mellitus. Patient currently is insulin dependent. Family History: Mother, diabetes. Brother; hypertension, diabetes. Sister; heart disease, diabetes. Social History: Former smoker. Denies alcohol. Denies drugs. Review of Systems: Constitutional: Denies syncope. Eyes: Denies vision changes. Ears, Nose, Mouth, and Throat: Denies sore throat, earache. Respiratory: Denies PND, orthopnea. GI: Complaining of nausea, vomiting. Loss of appetite. Generalized weakness. : Denies dysuria, hematuria. All other systems reviewed and all are negative. Physical Examination: General: Patient is oriented x3. Cooperative, conversant. HEENT: Atraumatic, normocephalic. Neck: Supple. No JVD. No bruits. Lungs: Clear to auscultation bilaterally. Heart: S1, S2. No pericardial friction rub. Abdomen: Soft, benign, nontender. No rebound or guarding. Extremities: No edema. Right BKA with cellulitis, open wound dressing in place. No oozing. No drainage. Neurologic: Moving extremities. Cranial nerves intact. Laboratory Data: WBC 14.7, hemoglobin 10.5, hematocrit 31.9. Sodium 129, potassium 3.9, BUN 41, creatinine 2.91, glucose 607, magnesium 2.9, total bilirubin 0.8, AST 11, ALT 30, AP 176. Impression And Plan: 1. Acute kidney injury in the setting of uncontrolled diabetes. The patient has severe hyperglycemia. Patient presented with active infection. He has cellulitis of the right stump with open wound and he is started on broad- spectrum antibiotics. He is on vancomycin IV 1 g every 24 hours and Ancef 1 g IV every 8 hours. The patient will have wound care team management for wound care. Blood cultures were done and results are pending. 2. Diabetes mellitus. Patient is on insulin. Blood glucose is improving. 3. Hyponatremia due to hyperglycemia. Monitor electrolytes. Continue IV fluids for acute kidney injury. The patient was started on half-normal saline at 75 cc/hour. Follow up CMP results. Check phosphorus and magnesium level. 4. Check renal ultrasound to rule out obstructive uropathy. Check urinalysis to rule out active urinary sediment and possible urinary tract infection. 5. Possible new onset of congestive heart failure. The patient denies history of CHF, although he was found to have elevated BNP. The patient will require Cardiology evaluation. In view of acute kidney injury, the patient was started on IV fluids. He tolerates p.o. intake. Continue p.o. hydration. YARELY/MODJeremias Voice ID: [id number] Report ID: [id number] MTDD
[2025-01-09 05:55] LABS: Absolute Lymphocytes (CBC) 1.9 K/uL (0.7-4.9); Hematocrit 27.1 % (39.6-49.0); Hemoglobin 9.5 g/dL (13.6-17.9); MCH 29.4 pg (27.0-35.0); MCHC 34.8 g/dL (32.0-36.0); MCV 84.4 fL (80-100); MPV 8.5 fL (7.6-11.3); Nucleated RBC Absolute Count 0.0 (0-0); Nucleated Red Blood Cells % 0.1 % (0-0); RBC Red Blood Cell Count 3.22 M/uL (4.33-5.43); White Blood Count 12.00 thou/uL (4.3-10.9)
[2025-01-09 06:24] LABS: ALT/SGPT 18.0 U/L (16-61); AST/SGOT 12.0 U/L (15-37); Albumin 2.5 g/dL (3.4-5.0); Albumin/Globulin Ratio 0.7 (1.1-1.8); Alkaline Phosphatase 111.0 U/L (45-117); Anion Gap 12.7 mEq/L (5.0-15.0); BUN Blood Urea Nitrogen 38.0 mg/dL (7-18); Globulin 3.8 g/dL (2.3-3.5); Glucose Level 225.0 mg/dL (74-106); Potassium 3.7 mEq/L (3.5-5.1)
--- NOTE | 2025-01-09 08:20 | P.PN ---
Date of Service: 01/09/25 Subjective: reports dealing with some pain associated with redness/swelling around BKA stump. Denies any drainage from BKA stump never needed to go home on IV abx before denies trouble urinating Physical Exam: GEN: Alert, oriented, NAD CV: Regular rate and rhythm, no edema ABD: soft, nontender, nondistended Integumentary: Right BKA with mild erythema and swelling. No drainage. Neuro: Normal speech, normal affect Problem List: Right BKA stump infection MRSA bacteremia ERIKA on CKD3 IDDM2 with neuropathy Hypertension Hyperlipidemia Right BKA stump infection MRSA bacteremia on admission presents with worsening erythema, pain and swelling of right BKA stump associated with nausea, weakness, subjective fever Venous ultrasound noted nonspecific subq edema, no fluid collections. CXR negative. [facility] consult. Wound care per [facility] Continue IV cefazolin/Vanc (01/08-); dc flagyl Blood cx - MRSA resulted 01/09 am Wound cx - pending Follow cultures. Will likely need prolonged IV abx Repeat blood cx ID consult ERIKA on CKD3 Creatinine 2.91 on admission Renal u/s (01/09): distended bladder with debris. No hydro. Bladder volume 909mL pt urinated ~900ml right after U/S done. Denies any retention issues Bladder scan today. - normal PVR. no evidence of retention Monitor renal function, electrolytes Nephrology consulted Creatinine improving daily. IDDM2 with neuropathy confirm home insulin regimen accu-cheks, SSI A1c 8.7 Hypertension Hyperlipidemia confirm home meds, restart as appropriate VTE: heparin sq Code: Full Dispo: Home, several days Culture sensitivities, likely needs IV abx setup Time Spent Managing Pts Care (In Minutes): 55
[2025-01-09] MEDS: VITAMIN D 1000 UNIT TAB PO SCH (09:00)
[2025-01-09] MEDS: HOME MED 1 EA UNK (Empagliflozin [Jardiance] 10 MG Tablet) PO SCH (09:00)
--- NOTE | 2025-01-09 09:02 | RAD REPORT ---
EXAMINATION: US RETROPERITONEUM CLINICAL INDICATION: penelope TECHNIQUE: Real-time ultrasonography of the abdomen was performed. COMPARISON: No prior exams FINDINGS: RIGHT KIDNEY: Right renal length measurement: 10 cm. Echogenicity is normal. No calculus or solid ma ss. No hydronephrosis. . LEFT KIDNEY: Left renal length measurement: 9.1 cm. Echogenicity is normal. No calculus or solid ma ss. No hydronephrosis. . ADDITIONAL FINDINGS: Distended bladder with debris. Bladder volume measured at 909 mL. IMPRESSION: Distended bladder with debris. Correlate for urinary retention. No evidence of hydronephrosis.
[2025-01-09] MEDS: VANCOMYCIN 1.25 GM in NA CHLORIDE 0.9% 250 ML IVPB SCH (09:48)
[2025-01-09] MEDS: POTASSIUM CL SA 10 MEQ TAB PO ONE (09:48)
[2025-01-09 10:32] LABS: UR CREAT 36.0 mg/dL (20-370); UR MICROALBUMIN 32.8 mg/dL (< 1.9)
--- NOTE | 2025-01-09 13:37 | P.CNS ---
Date of Consult: 01/09/25 reason for consult: MRSA bacteremia HPI:Patient is a 59-year-old male with past medical history of type 2 diabetes mellitus and CKD. She report generalized body weakness, dizziness, chills, subjective fever with associated nausea, pain on his right stump with erythema and swelling, no drainage. On examination, the right stump is warm to touch but less swollen and erythema than before..No drainage or wound noted. VS stable. wbc 12. blood culture reveal MRSA. wound culture pending. Pt is on ancef and vancomycin. Venous ultrasound noted nonspecific subq edema, no fluid collections. CXR negative ROS: please see HPI Allergies No Known Allergies Allergy (Verified 11/12/23 10:18) Current Medications Acetaminophen (Acetaminophen 325 Mg Tablet) 650 mg PO Q4HP PRN PRN Reason: Pain scale 2-4 (Mild) Amitriptyline HCl (Amitriptyline 25 Mg Tab) 25 mg PO BEDTIME JOSSELIN Last Admin: 01/08/25 20:40 Dose: 25 mg Cholecalciferol (Vitamin D 1000 Unit Tab) 1,000 unit PO DAILY JOSSELIN Last Admin: 01/09/25 09:00 Dose: 1,000 unit Heparin Sodium (Porcine) (Heparin 5000 Unit/Ml 1 Ml Vial) 5,000 unit SQ Q8HR JOSSELIN Last Admin: 01/09/25 09:47 Dose: 5,000 unit Home Med (Empagliflozin [Jardiance]) 10 mg PO DAILY JOSSELIN Last Admin: 01/09/25 09:00 Dose: Not Given Cefazolin Sodium 1 gm/ Sodium (Chloride) 50 mls @ 100 mls/hr IVPB Q12H [facility]; Protocol Last Admin: 01/09/25 13:06 Dose: 50 mls Vancomycin HCl 1.25 gm/ Sodium (Chloride) 250 mls @ 125 mls/hr IVPB Q36H JOSSELIN Last Admin: 01/09/25 09:48 Dose: 250 mls Insulin Glargine (Insulin Glargine 100 Unit/Ml) 20 unit SQ DAILY WITH BREAKFAST JOSSELIN Last Admin: 01/09/25 09:47 Dose: 20 unit Insulin Human Regular (Insulin Regular (Human) 100 Unit/Ml) 0 unit SQ ACHS JOSSELIN; Protocol Last Admin: 01/09/25 13:06 Dose: 7 unit Morphine Sulfate (Morphine 4 Mg/Ml Syr) 4 mg IV Q6H PRN PRN Reason: Pain scale 8-10 (Severe) Rosuvastatin Calcium (Rosuvastatin 5 Mg Tab) 5 mg PO BID JOSSELIN Last Admin: 01/09/25 09:48 Dose: 5 mg - Past Medical/Surgical History Diabetic: Yes -: Type 2 Diabetes, Insulin-Dependent -: Hypertension -: Anemia -: Hyperlipidemia -: Diabetic neuropathy. -: Right BKA Psychosocial/ Personal History: Patient is . - Family History Mother -: Diabetes Brother -: Hypertension, Diabetes Sister -: Heart disease, Diabetes - Social History Smoking Status: Former smoker Alcohol use: No CD- Drugs: No Caffeine use: Yes Place of Residence: Home Physical Examination - Physical Exam General: Oriented x3, Cooperative HEENT: Atraumatic, Normocephalic, PERRLA, Neck: Supple, 2+ Respiratory: Clear to auscultation bilaterally Cardiovascular: RRR Gastrointestinal: Normal bowel sounds, BS present, NT, ND Musculoskeletal: right BKA. no open wound noted. some warmth and mild erythema on palpation Neurological: respond appropriately to questions Microbiology 01/07/25 21:34 Blood - Blood Aerobic Blood Culture - Preliminary Meth Resistant Staph Aureus 01/07/25 21:34 Blood - Blood Blood Culture Gram Stain - Preliminary 01/07/25 21:34 Blood - Blood Anaerobic Blood Culture - Preliminary 01/07/25 21:34 Blood - Blood Gram Stain - Preliminary 01/07/25 21:50 Blood - Blood Aerobic Blood Culture - Preliminary No growth in 24 hours. 01/07/25 21:50 Blood - Blood Anaerobic Blood Culture - Preliminary No growth in 24 hours. labs: wbc 12, hgb 9.5, bun 38, cr 2.25, albumin 2.5 assessment and planning MRSA bacteremia right BKA stump infection ERIKA on CKD3 IDDM2 with neuropathy moderate protein calorie malnourishment blood culture grew MRSA continue vancomycin, dc ancef TTE pending wound culture pending MRI right lower extremity pending, r/o OM repeat blood culture until neg will continue to monitor for infection with wbc and fever trend thank you for the consult Dr Arita case discussed and in agreement with Dr Sylvester
--- NOTE | 2025-01-09 16:39 | RAD REPORT ---
Exam: Joint lower without contrast MRI CLINICAL HISTORY: Right leg pain and swelling TECHNIQUE: Axial, sagittal and coronal magnetic resonance imaging of the right lower extremity performed. FINDINGS: Below the knee amputation present.. No significant abnormal signal visualized within the tibia and fi bular stumps to suggest osteomyelitis. 4 x 1 x 3 cm fluid collection is present within the subcutaneous tissues of the anterior medial lower right knee. Diffuse edema is present throughout subcutaneous tissues. IMPRESSION: Below the knee amputation right leg No evidence of osteomyelitis 4 x 1 x 3 cm fluid collection subcutaneous tissues anterior medial lower right knee may indicate an a bscess.
--- NOTE | 2025-01-09 23:29 | PN ---
Date of Progress Note: 01/09/2025 Chief Complaint: Acute on chronic kidney injury. Subjective: The patient is admitted to the hospital for stump cellulitis and wound. He was found to have hyperglycemia and acute kidney injury. He is a 59-year-old man with past medical history of diabetes mellitus type 2, diabetic neuropathy, anemia, CKD stage 3, essential hypertension, right leg wound and status post right BKA. He came to emergency room complaining of generalized body weakness, dizziness, chills, subjective fever with associated nausea, but denied vomiting. The patient had right stump pain without erythema or swelling with drainage. According to the patient's , he was not eating well, but denies nausea and denies vomiting. He had decreased p.o. intake. Today, he is feeling better. Appetite is somewhat improved and on arrival to the hospital, he was found to have severe hyperglycemia with blood glucose of 607. WBC was elevated up to 14.7 and BNP 1408. The patient is on antibiotics for cellulitis of the right stump with open wound and primary team is managing antibiotics. Review of Systems: Denies chest pain, palpitation. Physical Examination: Lungs: Clear to auscultation bilaterally. Heart: S1, S2. Abdomen: Soft. Extremities: Dressing in place. Impression: 1. Acute kidney injury in setting of uncontrolled diabetes. The patient has severe hyperglycemia. The patient presented with active infection. He has cellulitis of the right stump with open wound and he is started on broad- spectrum antibiotics. He is on vancomycin IV 1 g every 24 hours and Ancef 1 g every 8 hours. The patient will continue wound care. Acute kidney injury is multifactorial in setting of sepsis and he was found to have urinary retention on the ultrasound, but he was able to void. Plan is to avoid Camarena catheter. 2. Diabetes mellitus. Continue insulin. 3. Hyponatremia due to hyperglycemia. The patient is on IV fluids for acute kidney injury. 4. Ultrasound was done to check for any evidence of obstructive uropathy, the patient was able to void after ultrasound was done. EB/MODL Voice ID: [id number] Report ID: [id number] REGINALD
[2025-01-10 01:21] LABS: Sqamous Epithelial <5 /HPF (None Seen); Urine Micro Reflex YN NO BILL MICROSCOPIC
[2025-01-10 06:21] LABS: Absolute Lymphocytes (CBC) 2.0 K/uL (0.7-4.9); Hematocrit 27.2 % (39.6-49.0); Hemoglobin 9.2 g/dL (13.6-17.9); MCH 29.0 pg (27.0-35.0); MCHC 34.0 g/dL (32.0-36.0); MCV 85.3 fL (80-100); MPV 8.0 fL (7.6-11.3); Nucleated RBC Absolute Count 0.0 (0-0); Nucleated Red Blood Cells % 0.0 % (0-0); RBC Red Blood Cell Count 3.18 M/uL (4.33-5.43); White Blood Count 11.50 thou/uL (4.3-10.9)
[2025-01-10 06:38] LABS: AST/SGOT 11 U/L (15-37); Albumin 2.4 g/dL (3.4-5.0); Albumin/Globulin Ratio 0.6 (1.1-1.8); Alkaline Phosphatase 120 U/L (45-117); Anion Gap 11.3 mEq/L (5.0-15.0); BUN Blood Urea Nitrogen 38 mg/dL (7-18); Globulin 3.7 g/dL (2.3-3.5); Glucose Level 293 mg/dL (74-106); Magnesium 2.3 mg/dL (1.6-2.4); Potassium 4.3 mEq/L (3.5-5.1)
[2025-01-10 06:39] LABS: ALT/SGPT < 14 U/L (16-61)
[2025-01-10] MEDS ORDERED: TAMSULOSIN 0.4 MG SR CAP PO SCH (09:00)
--- NOTE | 2025-01-10 15:16 | ECHO ---
HEIGHT: 5 ft 6 in WEIGHT: 175 lb 0 oz DATE OF STUDY: 01/10/[address]: Mahin Vuong NP 2-DIMENSIONAL: YES M.MODE: YES DOPPLER: YES COLOR FLOW: YES TDS: NO PORTABLE: YES DEFINITY: NO BUBBLE STUDY: NO DIAGNOSIS: CONGESTIVE HEART FAILURE CARDIAC HISTORY: CATHERIZATION: SURGERY: PROSTHETIC VALVE: PACEMAKER: MEASUREMENTS (cm) DIASTOLIC (NORMALS) SYSTOLIC (NORMALS) IVSd 1.2 (0.6-1.2) LA Diam 3.7 (1.9-4.0) LVEF 60-65% LVIDd 4.7 (3.5-5.7) LVIDs 2.8 (2.0-3.5) %FS 41% LVPWd 1.3 (0.6-1.2) Ao Diam 3.3 (2.0-3.7) 2 DIMENSIONAL ASSESSMENT: RIGHT ATRIUM: NORMAL LEFT ATRIUM: NORMAL RIGHT VENTRICLE: NORMAL LEFT VENTRICLE: NORMAL TRICUSPID VALVE: TRACE OF TRICUSPID REGURGITATION MITRAL VALVE: NORMAL PULMONIC VALVE: NORMAL AORTIC VALVE: NORMAL PERICARDIAL EFFUSION: NONE AORTIC ROOT: NORMAL LEFT VENTRICULAR WALL MOTION: NORMAL. DOPPLER/COLOR FLOW: GRADE I DIASTOLIC DYSFUNCTION. COMMENTS: 1. NORMAL LEFT VENTRICULAR SYSTOLIC FUNCTION, EJECTION FRACTION 60-65%, NORMAL WALL MOTION. 2. GRADE I DIASTOLIC DYSFUNCTION. 3. NORMAL FILLING PRESSURE (RIGHT ATRIAL PRESSURE 0-5mmHg). TECHNOLOGIST: ALEXIS ANAYA
--- NOTE | 2025-01-10 15:53 | P.PN ---
Subjective Date of Service: 01/10/25 Chief Complaint: Right thumb cellulitis/wound, hyperglycemia,ERIKA Patient denies any new complaint. No recorded fever. He said the pain and swelling in his right amputation stump is much better. He denies anorexia. Physical Examination - Vital Signs Temperature: 98.1 F Blood Pressure: 142/65 Pulse: 84 Respirations: 18 Pulse Ox (%): 99 - Studies Microbiology Data (last 24 hrs): 01/07/25 21:34 Blood - Blood Blood Culture Gram Stain - Final 01/07/25 21:34 Blood - Blood Gram Stain - Final 01/07/25 21:50 Blood - Blood Gram Stain - Final Assessment And Plan - Plan Physical Exam: GEN: Alert, oriented, NAD CV: Regular rate and rhythm, no edema ABD: soft, nontender, nondistended Integumentary: Right BKA erythema and swelling resolved, healed surgical wound. Neuro: Normal speech, normal affect Problem List: Right BKA stump infection MRSA bacteremia ERIKA on CKD3 IDDM2 with neuropathy Hypertension Hyperlipidemia Right BKA stump infection MRSA bacteremia on admission presents with worsening erythema, pain and swelling of right BKA stump associated with nausea, weakness, subjective fever Venous ultrasound noted nonspecific subq edema, no fluid collections. CXR negative. [facility] consult. Wound care per [facility] Continue IV cefazolin/Vanc (01/08-); dc flagyl Blood cx - MRSA resulted 01/09 am Wound cx - pending Follow cultures. Will likely need prolonged IV abx Repeat blood cx ID consult ERIKA on CKD3 Creatinine 2.91 on admission Renal u/s (01/09): distended bladder with debris. No hydro. Bladder volume 909mL pt urinated ~900ml right after U/S done. Denies any retention issues Bladder scan today. - normal PVR. no evidence of retention Monitor renal function, electrolytes Nephrology consulted Creatinine improving daily. IDDM2 with neuropathy confirm home insulin regimen accu-cheks, SSI A1c 8.7 Hypertension Hyperlipidemia confirm home meds, restart as appropriate 01/10 Aerobic blood culture grew MRSA, anaerobic blood culture growing E. coli. Antibiotic sensitivities for both organisms are pending. Continue IV vancomycin, and IV Rocephin to cover E. coli. Blood cultures repeated today. Follow result Infectious diseases following. Renal function mildly improved. Renal ultrasound shows no evidence of hydronephrosis. Nephrology is following and managing ERIKA. VTE: heparin sq Code: Full
[2025-01-10] MEDS: CEFTRIAXONE 1,000 MG in NA CHLORIDE 0.9% 50 ML IVPB SCH (20:00)
--- NOTE | 2025-01-10 22:29 | PN ---
Subjective: The patient is lying in bed. No new acute event. Chart reviewed. Objective: Vital Signs: Temperature 97, pulse 86, respirations 18, blood pressure 122/59. Lungs: Basal crackles. Heart: S1, S2. Regular. Abdomen: Soft, nontender. Bowel sounds present. Extremities: Right lower extremity stump site with erythematous changes and slightly increased tende rness. Laboratory Data: WBC 11.5, hemoglobin 9.2, platelets 247, BUN of 38, creatinine 2, albumin level 2.4 . Blood cultures from 01/08 growing E coli and MRSA. Assessment And Plan: 1. MRSA and E coli bacteremia in a patient with right lower BKA cellulitis and stump site infection. 2. Insulin-dependent diabetes mellitus. 3. Chronic kidney disease. 4. Moderate protein-calorie malnourishment. The patient is currently on vancomycin. We will recomme nd to also add Rocephin to his treatment and follow the patient closely. Monitor signs of infection with WBC and fever trends. 5. Leukocytosis, improving. 6. Anemia of chronic disease. We will follow the patient as needed. NF/MODL Voice ID: [id number] Report ID: [id number]
--- NOTE | 2025-01-11 02:39 | PN ---
Date of Progress Note: 01/10/2025 Chief Complaint: Acute on chronic kidney injury. Subjective: The patient is admitted to the hospital for stump cellulitis and wound. He was found to have hyperglycemia, acute kidney injury. He is a 59-year-old man with past medical history of diabe ozzy mellitus, diabetic neuropathy, diabetic kidney disease, CKD 3, essential hypertension, right leg wound, and status post right BKA. He came to emergency room complaining of generalized weakness, diz ziness, chills, subjective fever associated with nausea, but denies vomiting. He had decreased p.o. intake, decreased appetite. White count was 14.7. Review of Systems: Denies chest pain, palpitation. Physical Examination: Lungs: Clear to auscultation bilaterally. Heart: S1, S2. Abdomen: Soft, benign. Extremities: Dressing in place. Impression And Plan: 1. Acute kidney injury in setting of uncontrolled diabetes. The patient has severe hyperglycemia and diabetic control is improving. The patient has cellulitis of the right stump with open wound and he is stated on broad-spectrum antibiotics. Continue vancomycin and check vancomycin level. The patie nt is also on Ancef. Continue wound care. 2. Diabetes mellitus. Continue insulin. 3. Hyponatremia due to hyperglycemia. Sodium level is and erythema is controlled. Ultras ound was done to check for any evidence of obstructive uropathy. The patient although was able to void. After ultrasound was done, he did not have urinary retention. EB/MODL Voice ID: [id number] Report ID: [id number]
[2025-01-11 05:44] LABS: Absolute Lymphocytes (CBC) 2.2 K/uL (0.7-4.9); Hematocrit 27.6 % (39.6-49.0); Hemoglobin 9.4 g/dL (13.6-17.9); MCH 28.8 pg (27.0-35.0); MCHC 34.1 g/dL (32.0-36.0); MCV 84.5 fL (80-100); MPV 7.6 fL (7.6-11.3); Nucleated RBC Absolute Count 0.0 (0-0); Nucleated Red Blood Cells % 0.0 % (0-0); RBC Red Blood Cell Count 3.27 M/uL (4.33-5.43); White Blood Count 11.60 thou/uL (4.3-10.9)
[2025-01-11 06:01] LABS: ALT/SGPT 18.0 U/L (16-61); AST/SGOT 12.0 U/L (15-37); Albumin 2.3 g/dL (3.4-5.0); Albumin/Globulin Ratio 0.6 (1.1-1.8); Alkaline Phosphatase 105.0 U/L (45-117); Anion Gap 8.6 mEq/L (5.0-15.0); BUN Blood Urea Nitrogen 37.0 mg/dL (7-18); Globulin 3.8 g/dL (2.3-3.5); Glucose Level 183.0 mg/dL (74-106); Potassium 4.6 mEq/L (3.5-5.1)
--- NOTE | 2025-01-11 11:30 | PN ---
Subjective: The patient was admitted to the hospital with acute kidney injury, hyponatremia on chron ic kidney disease after hydration. Kidney function started improving. The patient had stump infecti on. Physical Examination: Vital Signs: When I saw the patient, blood pressure 128/74, pulse of 89. Chest: Clear to auscultation. Heart: S1, S2 regular. Abdomen: Soft, nontender. Extremities: Right below-knee amputation. Erythema on the stump. Left, no edema. Neurologic: Alert. No focality. Laboratory Data: WBC 11.6, hemoglobin 9.4. Sodium 137, potassium 4.6, bicarb 25, BUN 37, creatinine 2, GFR of 35, calcium 8, phosphorus 3.8. Serum protein electrophoresis is still pending. PC ratio at 2.5. Current Medications: The patient is on include: 1. Ceftriaxone. 2. Vancomycin. 3. Atorvastatin. 4. Amitriptyline. 5. Tylenol. 6. Morphine. Assessment And Plan: 1. Acute kidney injury on chronic kidney disease. The patient continued to improve, mostly secondary to toxic ATN secondary to stump infection superimposed with glucose diuresis secondary to poor contr olled diabetes. The patient's kidney function close to his baseline, baseline around 1.8 with GFR of 40. I am going to go ahead and continue current antibiotic. We will follow up with Primary. Keep holding IV fluid. 2. Hypertension, controlled, optimal. Continue current treatment. 3. Diabetes, as by Primary. 4. 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 5. Hyponatremia, depletional, resolved. 6. Anemia of chronic kidney disease with iron deficiency anemia with the presence of stump infection. I would be reluctant to give any IV iron for the time being. 7. Stump infection with bacteremia. Continue current antibiotic. We will follow up with Primary. 8. Diabetes, as by Primary. CHANDANA/SARAHY Voice ID: [id number] Report ID: [id number]
--- NOTE | 2025-01-11 13:10 | P.PN ---
Date of Service: 01/11/25 subjective: pt tolerating abx with no problem. WBC WNL, VS stable objective Temp Pulse Resp BP Pulse Ox 97.7 F 89 17 128/74 98 01/11/25 08:00 01/11/25 08:00 01/11/25 08:00 01/11/25 08:00 01/11/25 08:00 - Physical Exam General: Oriented x3, Cooperative HEENT: Atraumatic, Normocephalic, PERRLA, Neck: Supple, 2+ Respiratory: Clear to auscultation bilaterally Cardiovascular: RRR Gastrointestinal: Normal bowel sounds, BS present, NT, ND Musculoskeletal: right BKA. no open wound noted. some warmth and mild erythema on palpation Neurological: respond appropriately to questions Microbiology 01/07/25 21:50 Blood - Blood Aerobic Blood Culture - Preliminary No growth in 24 hours. 01/07/25 21:50 Blood - Blood Anaerobic Blood Culture - Preliminary STAPH AUREUS ssp AUREUS 01/07/25 21:50 Blood - Blood Gram Stain - Final 01/07/25 21:34 Blood - Blood Aerobic Blood Culture - Final Meth Resistant Staph Aureus 01/07/25 21:34 Blood - Blood Blood Culture Gram Stain - Final 01/07/25 21:34 Blood - Blood Anaerobic Blood Culture - Final Escherichia Coli 01/07/25 21:34 Blood - Blood Gram Stain - Final labs: wbc 11.6, hgb 9.4, plt count 291,bun 37, cr 2.09, albumin 2.3 assessment and planning MRSA and ecoli bacteremia right BKA stump infection ERIKA on CKD3 IDDM2 with neuropathy moderate protein calorie malnourishment leukocytosis(improving) blood culture show MRSA and e coli grew recently dc vancomycin and rocephin. add doxycyline and merrem x 2 weeks if the plan is to do wound debridement. TTE negative for endocarditis wound culture pending MRI right lower extremity shows 4 x 1 x 3 cm fluid collection subcutaneous tissues anterior medial lower right knee may indicate abscess. recommend surgeon input repeat blood culture until neg will continue to monitor for infection with wbc and fever trend case discussed and in agreement with Dr Sylvester
--- NOTE | 2025-01-11 15:05 | P.PN ---
Subjective Date of Service: 01/11/25 Chief Complaint: Right thumb cellulitis/wound, hyperglycemia,ERIKA Patient has no new complaint. He was seen in his wheelchair in the room. No recorded fever. Physical Examination - Vital Signs Temperature: 98.1 F Blood Pressure: 147/67 Pulse: 86 Respirations: 18 Pulse Ox (%): 100 - Studies Microbiology Data (last 24 hrs): 01/07/25 21:50 Blood - Blood Gram Stain - Final 01/07/25 21:34 Blood - Blood Aerobic Blood Culture - Final Meth Resistant Staph Aureus 01/07/25 21:34 Blood - Blood Blood Culture Gram Stain - Final 01/07/25 21:34 Blood - Blood Anaerobic Blood Culture - Final Escherichia Coli 01/07/25 21:34 Blood - Blood Gram Stain - Final Assessment And Plan - Plan Physical Exam: GEN: Alert, oriented, NAD CV: Regular rate and rhythm, no edema ABD: soft, nontender, nondistended Integumentary: Right BKA erythema and swelling resolved, healed surgical wound. Neuro: Normal speech, normal affect Problem List: Right BKA stump infection MRSA bacteremia ERIKA on CKD3 IDDM2 with neuropathy Hypertension Hyperlipidemia Right BKA stump infection MRSA bacteremia on admission presents with worsening erythema, pain and swelling of right BKA stump associated with nausea, weakness, subjective fever Venous ultrasound noted nonspecific subq edema, no fluid collections. CXR negative. [facility] consult. Wound care per [facility] Continue IV cefazolin/Vanc (01/08-); dc flagyl Blood cx - MRSA resulted 01/09 am Wound cx - pending Follow cultures. Will likely need prolonged IV abx Repeat blood cx ID consult ERIKA on CKD3 Creatinine 2.91 on admission Renal u/s (01/09): distended bladder with debris. No hydro. Bladder volume 909mL pt urinated ~900ml right after U/S done. Denies any retention issues Bladder scan today. - normal PVR. no evidence of retention Monitor renal function, electrolytes Nephrology consulted Creatinine improving daily. IDDM2 with neuropathy confirm home insulin regimen accu-cheks, SSI A1c 8.7 Hypertension Hyperlipidemia confirm home meds, restart as appropriate 01/10 Aerobic blood culture grew MRSA, anaerobic blood culture growing E. coli. Antibiotic sensitivities for both organisms are pending. Continue IV vancomycin, and IV Rocephin to cover E. coli. Blood cultures repeated today. Follow result Infectious diseases following. Renal function mildly improved. Renal ultrasound shows no evidence of hydronephrosis. Nephrology is following and managing ERIKA. 01/11 MRI of the right leg reviewed and noted an abscess collection. Case discussed with infectious disease, continue IV vancomycin and IV Rocephin. General surgery Dr. Sanchez consulted to evaluate. Will also consult IR for US guided drainage. No change in creatinine since yesterday Nephrology is following and assisting with management of ERIKA. Antibiotic duration pending abscess drainage. VTE: heparin sq Code: Full
[2025-01-11] MEDS: Meropenem 1,000 MG in NA CHLORIDE 0.9% 100 ML IV SCH (21:15)
[2025-01-11] MEDS: DOXYCYCLINE 100 MG in NA CHLORIDE 0.9% 100 ML IVPB SCH (22:20)
[2025-01-12 06:10] LABS: Absolute Lymphocytes (CBC) 2.2 K/uL (0.7-4.9); Hematocrit 27.6 % (39.6-49.0); Hemoglobin 9.1 g/dL (13.6-17.9); MCH 28.3 pg (27.0-35.0); MCHC 33.0 g/dL (32.0-36.0); MCV 85.7 fL (80-100); MPV 7.8 fL (7.6-11.3); Nucleated RBC Absolute Count 0.0 (0-0); Nucleated Red Blood Cells % 0.0 % (0-0); RBC Red Blood Cell Count 3.23 M/uL (4.33-5.43); White Blood Count 12.00 thou/uL (4.3-10.9)
[2025-01-12 06:22] LABS: Anion Gap 10.0 mEq/L (5.0-15.0); BUN Blood Urea Nitrogen 38.0 mg/dL (7-18); Glucose Level 255.0 mg/dL (74-106); Potassium 5.0 mEq/L (3.5-5.1)
[2025-01-12 06:26] VITALS: BMI 26.4
[2025-01-12 07:07] LABS: Blood Morphology Comment NOT SEEN (NOT SEEN); Differential Total Cells Count 100; Segmented Neutrophils 78 % (40-80)
[2025-01-12 10:30] LABS: KAPPA LIGHT CHAIN, FREE SERUM 76.9 mg/L (3.3-19.4); LAMBDA LIGHT CHAIN, FREE SERUM 64.1 mg/L (5.7-26.3)
--- NOTE | 2025-01-12 12:21 | P.PN ---
Date of Service: 01/12/25 Subjective: The patient was admitted to the hospital with acute kidney injury, hyponatremia on chronic kidney disease after hydration. Kidney function started improving. The patient had stump infection. Physical Examination: Temp Pulse Resp BP Pulse Ox 97.9 F 92 H 20 160/74 H 92 01/12/25 08:00 01/12/25 08:00 01/12/25 08:00 01/12/25 08:00 01/12/25 08:00 Chest: Clear to auscultation. Heart: S1, S2 regular. Abdomen: Soft, nontender. Extremities: Right below-knee amputation. Erythema on the stump. Left, no edema. Neurologic: Alert. No focality. Acetaminophen (Acetaminophen 325 Mg Tablet) 650 mg PO Q4HP PRN PRN Reason: Pain scale 2-4 (Mild) Amitriptyline HCl (Amitriptyline 25 Mg Tab) 25 mg PO BEDTIME JOSSELIN Last Admin: 01/11/25 21:19 Dose: 25 mg Cholecalciferol (Vitamin D 1000 Unit Tab) 1,000 unit PO DAILY [facility]OS[facility] Last Admin: 01/12/25 08:57 Dose: 1,000 unit Heparin Sodium (Porcine) (Heparin 5000 Unit/Ml 1 Ml Vial) 5,000 unit SQ Q8HR JOSSELIN Last Admin: 01/12/25 08:58 Dose: Not Given Home Med (Empagliflozin [Jardiance]) 10 mg PO DAILY [facility] Last Admin: 01/12/25 08:39 Dose: Not Given Doxycycline Hyclate 100 mg/ (Sodium Chloride) 100 mls @ 100 mls/hr IVPB Q12HR [facility]; Protocol Last Admin: 01/12/25 08:57 Dose: 100 mls Meropenem 1,000 mg/ Sodium (Chloride) 100 mls @ 200 mls/hr IV Q12HR [facility]OSSELIN Last Admin: 01/12/25 08:56 Dose: 100 mls Insulin Glargine (Insulin Glargine 100 Unit/Ml) 20 unit SQ DAILY WITH BREAKFAST JOSSELIN Last Admin: 01/12/25 08:55 Dose: 20 unit Insulin Human Regular (Insulin Regular (Human) 100 Unit/Ml) 0 unit SQ ACHS [facility]OSSELIN; Protocol Last Admin: 01/12/25 08:56 Dose: 5 unit Morphine Sulfate (Morphine 4 Mg/Ml Syr) 4 mg IV Q6H PRN PRN Reason: Pain scale 8-10 (Severe) Rosuvastatin Calcium (Rosuvastatin 5 Mg Tab) 5 mg PO BID JOSSELIN Last Admin: 01/12/25 08:57 Dose: 5 mg Laboratory Last Values WBC 14.70 thou/uL (4.3-10.9) H 01/07/25 20:01 RBC 3.65 M/uL (4.33-5.43) L 01/07/25 20:01 Hgb 10.5 g/dL (13.6-17.9) L 01/07/25 20:01 Hct 31.9 % (39.6-49.0) L 01/07/25 20:01 MCV 87.2 fL (80-100) 01/07/25 20:01 MCH 28.7 pg (27.0-35.0) 01/07/25 20:01 MCHC 32.9 g/dL (32.0-36.0) 01/07/25 20:01 RDW 13.3 % (12.1-15.2) 01/07/25 20:01 Plt Count 209 thou/uL (152-406) 01/07/25 20:01 MPV 9.2 fL (7.6-11.3) 01/07/25 20:01 Neutrophils % 86.1 % (41.7-73.7) H 01/07/25 20:01 Lymphocytes % 4.7 % (15.3-44.8) L 01/07/25 20:01 Monocytes % 6.1 % (3.3-12.3) 01/07/25 20:01 Eosinophils % 2.9 % (0-4.4) 01/07/25 20:01 Basophils % 0.2 % (0-1.3) 01/07/25 20:01 Absolute Neutrophils 12.6 K/uL (1.8-8.0) H 01/07/25 20:01 Absolute Lymphocytes 0.7 K/uL (0.7-4.9) 01/07/25 20:01 Absolute Monocytes 0.9 K/uL (0.1-1.3) 01/07/25 20:01 Absolute Eosinophils 0.4 K/uL (0-0.5) 01/07/25 20:01 Absolute Basophils 0.0 K/uL (0-0.5) 01/07/25 20:01 Platelet Estimate Adeq 01/07/25 20:01 Morphology Comment Not seen (NOT SEEN) 01/07/25 20: PT 12.3 SECONDS (10-13.0) 01/07/25 21:34 INR 1.09 01/07/25 21:34 APTT 25.8 SECONDS (27.2-37.4) L 01/07/25 21:34 Sodium 129 mEq/L (136-145) L 01/07/25 20:01 Potassium 3.9 mEq/L (3.5-5.1) 01/07/25 20:01 Chloride 95 mEq/L (98-107) L 01/07/25 20:01 Carbon Dioxide 22 mEq/L (21-32) 01/07/25 20: Anion Gap 15.9 mEq/L (5.0-15.0) H 01/07/25 20:01 BUN 41 mg/dL (7-18) H 01/07/25 20:01 Creatinine 2.91 mg/dL (0.70-1.30) H 01/07/25 20:01 Est GFR (CKD-EPI) 24 ml/min (=/>90) L 01/07/25 20:01 Glucose 607 mg/dL (74-106) H* 01/07/25 20:01 POC Glucose 484 mg/dL (65-120) H* 01/07/25 21:51 Lactic Acid 1.1 mmol/L (0.4-2.0) 01/07/25 21:34 Calcium 9.4 mg/dL (8.5-10.1) 01/07/25 20: Magnesium 2.9 mg/dL (1.6-2.4) H 01/07/25 20:01 Total Bilirubin 0.8 mg/dL (0.2-1.0) 01/07/25 20:01 Direct Bilirubin 0.2 mg/dL (0-0.2) 01/07/25 20: Indirect Bilirubin 0.6 mg/dL (0.2-0.8) 01/07/25 20:01 AST 11 U/L (15-37) L 01/07/25 20: ALT 30 U/L (16-61) 01/07/25 20:01 Alkaline Phosphatase 176 U/L (45-117) H 01/07/25 20:01 Troponin I High Sens 6.1 pg/mL (<58.9) 01/07/25 20:01 NT-Pro-B Natriuret Pep 1408 pg/mL (<125) H 01/07/25 21:34 Serum Total Protein 7.6 g/dL (6.4-8.2) 01/07/25 20:01 Albumin 3.1 g/dL (3.4-5.0) L 01/07/25 20:01 Globulin 4.5 g/dL (2.3-3.5) H 01/07/25 20:01 Albumin/Globulin Ratio 0.7 (1.1-1.8) L 01/07/25 20:01 Smear Scan Ok (OK) 01/07/25 20:01 Assessment And Plan: 1. Acute kidney injury on chronic kidney disease. The patient continued to improve, mostly secondary to toxic ATN secondary to stump infection superimposed with glucose diuresis secondary to poor controlled diabetes. The patient's kidney function close to his baseline, baseline around 1.8 with GFR of 40. I am going to go ahead and continue current antibiotic. We will follow up with Primary. Keep holding IV fluid. 2. Hypertension, controlled, optimal. Continue current treatment. 3. Diabetes, as by Primary. 4. 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 5. Hyponatremia, depletional, resolved. 6. Anemia of chronic kidney disease with iron deficiency anemia with the presence of stump infection. I would be reluctant to give any IV iron for the time being. 7. Stump infection with bacteremia. Continue current antibiotic. We will follow up with Primary. Time spent examining the patient [id number] reviewing data lab and radiology placing order discussing the case with the patient discussing the case with the steamboat inspector including hospitalist and nursing staff more than 55-minute
[2025-01-12 13:11] LABS: PT Prothrombin Time 11.2 SECONDS (10-13.0); PTT, Activated Partial Thromb 28.9 SECONDS (27.2-37.4); Protime INR 0.99
--- NOTE | 2025-01-12 15:34 | P.PN ---
Subjective Date of Service: 01/12/25 Chief Complaint: Right thumb cellulitis/wound, hyperglycemia,ERIKA Patient has no new complaint. No recorded fever. He stated his right amputation stump swelling has not completely resolved. Physical Examination - Vital Signs Temperature: 97.7 F Blood Pressure: 137/65 Pulse: 85 Respirations: 17 Pulse Ox (%): 100 Assessment And Plan - Plan Physical Exam: GEN: Alert, oriented, NAD CV: Regular rate and rhythm, no edema ABD: soft, nontender, nondistended Integumentary: Right BKA erythema and swelling resolved, healed surgical wound. Neuro: Normal speech, normal affect Problem List: Right BKA stump infection MRSA bacteremia ERIKA on CKD3 IDDM2 with neuropathy Hypertension Hyperlipidemia Right BKA stump infection MRSA bacteremia on admission presents with worsening erythema, pain and swelling of right BKA stump associated with nausea, weakness, subjective fever Venous ultrasound noted nonspecific subq edema, no fluid collections. CXR negative. [facility] consult. Wound care per [facility] Continue IV cefazolin/Vanc (01/08-); dc flagyl Blood cx - MRSA resulted 01/09 am Wound cx - pending Follow cultures. Will likely need prolonged IV abx Repeat blood cx ID consult ERIKA on CKD3 Creatinine 2.91 on admission Renal u/s (01/09): distended bladder with debris. No hydro. Bladder volume 909mL pt urinated ~900ml right after U/S done. Denies any retention issues Bladder scan today. - normal PVR. no evidence of retention Monitor renal function, electrolytes Nephrology consulted Creatinine improving daily. IDDM2 with neuropathy confirm home insulin regimen accu-cheks, SSI A1c 8.7 Hypertension Hyperlipidemia confirm home meds, restart as appropriate 01/10 Aerobic blood culture grew MRSA, anaerobic blood culture growing E. coli. Antibiotic sensitivities for both organisms are pending. Continue IV vancomycin, and IV Rocephin to cover E. coli. Blood cultures repeated today. Follow result Infectious diseases following. Renal function mildly improved. Renal ultrasound shows no evidence of hydronephrosis. Nephrology is following and managing ERIKA. 01/11 MRI of the right leg reviewed and noted an abscess collection. Case discussed with infectious disease, continue IV vancomycin and IV Rocephin. General surgery Dr. Sanchez consulted to evaluate. Will also consult IR for US guided drainage. No change in creatinine since yesterday Nephrology is following and assisting with management of ERIKA. Antibiotic duration pending abscess drainage. 01/12 Continue IV vancomycin and Rocephin CT-guided drainage of right amputation stump abscesses pending. Radiology is planning for drainage tomorrow. Infectious disease input appreciated. 2 weeks IV antibiotics recommended if patient undergoes drainage of the abscess. Repeat blood 01/10 is negative. PICC line for outpatient IV antibiotics requested. Nephrology is following for ERIKA. Serum creatinine improved close to baseline. VTE: heparin sq Code: Full
[2025-01-12] MEDS: HYDRALAZINE HCL 20 MG/ML VIAL IV PRN (16:13)
[2025-01-12] MEDS: AMLODIPINE 5 MG TAB PO SCH (16:13)
[2025-01-12 16:18] LABS: Albumin, (SPE) 3.1 g/dL (3.8-4.8); Total Protein 6.3 g/dL (6.1-8.1)
--- NOTE | 2025-01-12 19:10 | RAD REPORT ---
EXAM: Chest Single View HISTORY: 59 years Male PICC line insertion COMPARISON: No prior exams FINDINGS: LUNGS/PLEURA: The lungs are clear. No pleural effusions or pneumothorax. No pulmonary edema. CARDIAC/MEDIASTINUM: The cardiac silhouette is within normal limits. UPPER ABDOMEN: No significant abnormality. BONES: No acute abnormality. LINES/TUBES/OTHER: Right subclavian approach PICC with tip overlying the SVC in satisfactory position . IMPRESSION: No evidence of acute cardiopulmonary disease. PICC tip in satisfactory position overlying the SVC.
--- NOTE | 2025-01-12 21:31 | PN ---
Subjective: The patient is seen in his room today. Denies any discomfort. No acute event overnight . Tolerating antibiotic without any problems. Objective: Vital Signs: Temperature 97, pulse 85, respirations 17, blood pressure 137/65. Lungs: Basal crackles. Heart: S1, S2. Regular. Abdomen: Soft, nontender. Bowel sounds present. Extremities: Right BKA wound noted. Laboratory Data: Shows WBC 12,000, hemoglobin 9.1, platelets are 292. BUN of 38, creatinine 2.18. Blood culture results show MSSA and E coli and MRSA in the blood. Assessment And Plan: The patient is currently being treated with IV antibiotic including Rocephin, i ncluding meropenem and doxycycline. Monitor signs of infection with WBC and fever trends. No other recommendation at this time. Concern regarding abscess formation seen on MRI for the right knee area , recommending surgical evaluation. NF/MODL Voice ID: [id number] Report ID: [id number]
[2025-01-12] MEDS: Mupirocin NASAL 2 APPL/1 GM TUBE NAS SCH (21:34)
[2025-01-12] MEDS: ACETAMINOPHEN 325 MG TABLET PO PRN (23:21)
--- NOTE | 2025-01-12 23:26 | CON ---
Date of Consultation: 01/12/2025 Diagnoses: Cellulitis and abscess of the right stump. History Of Present Illness: This is the case of a 59-year-old patient, who comes to us with swelling of the right stump, he does not understand why, he says he did not do anything out of the usual, it just happens all the way up from the bottom of the stump to the knee. Even though the swelling is st arting to get little bit better, I was consulted for possible drainage. Allergies: NONE. Medications: Elavil, clonidine, Cozaar, FlexPen. Past Surgical History: Includes right BKA. Past Medical History: Includes diabetes, hyperlipidemia, hypertension, diabetic neuropathy. Social History: He does not smoke. He does not drink alcohol. Family History: Noncontributory. Review of Systems: Right stump cellulitis and open wound tenderness and swelling. No dysuria, hematuria, hematochezia, melena. No shortness of breath. No chest pain. Review of Systems: Ten points otherwise unremarkable. Physical Examination: Vital Signs: Reviewed. General: The patient is awake, alert, oriented x3. HEENT: Pupils are equal and reactive. Anicteric. Neck: Supple. Chest: Clear. Heart: S1, S2. Abdomen: Soft and depressible. Extremities: Over the right stump area, the patient has swelling with fluctuance present on the medi al aspect of the stump. Cannot rule out an abscess. There is no open wound in that area with warm c ellulitis and what it looked like a previous blister. No cyanosis. Imaging Data: MRI shows fluid collection over that region . Assessment: Cellulitis and abscess of the right stump. Plan: Will be incision and drainage with benefits, alternatives, and risks including, but not limite d to infection, bleeding, damage to adjacent structures, anesthesia complication, nonhealing wound, M I, and even . He also understands this may not relieve any symptoms. He might need more than o ne surgical intervention. He will require wound care. BRANDEE/SARAHY Voice ID: [id number] Report ID: [id number]
[2025-01-13 04:44] LABS: Absolute Lymphocytes (CBC) 1.9 K/uL (0.7-4.9); Hematocrit 26.6 % (39.6-49.0); Hemoglobin 8.9 g/dL (13.6-17.9); MCH 28.7 pg (27.0-35.0); MCHC 33.6 g/dL (32.0-36.0); MCV 85.4 fL (80-100); MPV 7.6 fL (7.6-11.3); Nucleated RBC Absolute Count 0.0 (0-0); Nucleated Red Blood Cells % 0.0 % (0-0); RBC Red Blood Cell Count 3.11 M/uL (4.33-5.43); White Blood Count 10.90 thou/uL (4.3-10.9)
[2025-01-13 05:04] LABS: Anion Gap 7.5 mEq/L (5.0-15.0); BUN Blood Urea Nitrogen 39.0 mg/dL (7-18); Glucose Level 192.0 mg/dL (74-106); Potassium 5.5 mEq/L (3.5-5.1)
--- NOTE | 2025-01-13 12:35 | P.PN ---
Date of Service: 01/13/25 subjective: pt tolerating abx with no problem. WBC WNL, VS stable, pending debridement today objective Temp Pulse Resp BP Pulse Ox 97.4 F 98 H 16 172/81 H 98 01/13/25 08:00 01/13/25 08:00 01/13/25 08:00 01/13/25 08:00 01/13/25 08:00 - Physical Exam General: Oriented x3, Cooperative HEENT: Atraumatic, Normocephalic, PERRLA, Neck: Supple, 2+ Respiratory: Clear to auscultation bilaterally Cardiovascular: RRR Gastrointestinal: Normal bowel sounds, BS present, NT, ND Musculoskeletal: right BKA. no open wound noted. some warmth and mild erythema on palpation Neurological: respond appropriately to questions Microbiology 01/07/25 21:50 Blood - Blood Aerobic Blood Culture - Preliminary No growth in 24 hours. 01/07/25 21:50 Blood - Blood Anaerobic Blood Culture - Preliminary STAPH AUREUS ssp AUREUS 01/07/25 21:50 Blood - Blood Gram Stain - Final 01/07/25 21:34 Blood - Blood Aerobic Blood Culture - Final Meth Resistant Staph Aureus 01/07/25 21:34 Blood - Blood Blood Culture Gram Stain - Final 01/07/25 21:34 Blood - Blood Anaerobic Blood Culture - Final Escherichia Coli 01/07/25 21:34 Blood - Blood Gram Stain - Final labs: wbc 10.9, hgb 8.9, plt count 283,bun 39, cr 2.08, albumin 2.3 assessment and planning MRSA and ecoli bacteremia right BKA stump infection ERIKA on CKD3 IDDM2 with neuropathy moderate protein calorie malnourishment leukocytosis(improving) blood culture show MRSA and e coli grew recently dc vancomycin and rocephin. add IV doxycyline and merrem x 2 weeks if the plan is to do wound debridement. TTE negative for endocarditis wound culture pending MRI right lower extremity shows 4 x 1 x 3 cm fluid collection subcutaneous tissues anterior medial lower right knee may indicate abscess. recommend surgeon input repeat blood culture until neg will continue to monitor for infection with wbc and fever trend case discussed and in agreement with Dr Sylvester
[2025-01-13] MEDS: NA CHLORIDE 0.9% 1,000 ML ONE (13:43)
--- NOTE | 2025-01-13 14:53 | P.PN ---
Date of Service: 01/13/25 Subjective: No new complaints overnight. Going for his I&D today. Denies fevers and chills. Vital stable overnight Physical Exam: GEN: Alert, oriented, NAD CV: Regular rate and rhythm, no edema ABD: soft, nontender, nondistended Integumentary: Right BKA erythema and swelling resolved, healed surgical wound. Neuro: Normal speech, normal affect Problem List: Right BKA stump infection MRSA bacteremia ERIKA on CKD3 IDDM2 with neuropathy Hypertension Hyperlipidemia Right BKA stump infection MRSA bacteremia on admission presents with worsening erythema, pain and swelling of right BKA stump associated with nausea, weakness, subjective fever Venous ultrasound noted nonspecific subq edema, no fluid collections. CXR negative. [facility] consult. Wound care per [facility] Continue IV cefazolin/Vanc (01/08-); dc flagyl Blood cx - MRSA resulted 01/09 am Wound cx - pending Follow cultures. Will likely need prolonged IV abx Repeat blood cx ID consult ERIKA on CKD3 Creatinine 2.91 on admission Renal u/s (01/09): distended bladder with debris. No hydro. Bladder volume 909mL pt urinated ~900ml right after U/S done. Denies any retention issues Bladder scan today. - normal PVR. no evidence of retention Monitor renal function, electrolytes Nephrology consulted Creatinine improving daily. IDDM2 with neuropathy confirm home insulin regimen accu-cheks, SSI A1c 8.7 Hypertension Hyperlipidemia confirm home meds, restart as appropriate 01/10 Aerobic blood culture grew MRSA, anaerobic blood culture growing E. coli. Antibiotic sensitivities for both organisms are pending. Continue IV vancomycin, and IV Rocephin to cover E. coli. Blood cultures repeated today. Follow result Infectious diseases following. Renal function mildly improved. Renal ultrasound shows no evidence of hydronephrosis. Nephrology is following and managing ERIKA. 01/11 MRI of the right leg reviewed and noted an abscess collection. Case discussed with infectious disease, continue IV vancomycin and IV Rocephin. General surgery Dr. Sanchez consulted to evaluate. Will also consult IR for US guided drainage. No change in creatinine since yesterday Nephrology is following and assisting with management of ERIKA. Antibiotic duration pending abscess drainage. 01/12 Continue IV vancomycin and Rocephin CT-guided drainage of right amputation stump abscesses pending. Radiology is planning for drainage tomorrow. Infectious disease input appreciated. 2 weeks IV antibiotics recommended if patient undergoes drainage of the abscess. Repeat blood 01/10 is negative. PICC line for outpatient IV antibiotics requested. Nephrology is following for ERIKA. Serum creatinine improved close to baseline. 01/[address]-guided I&D of right amputation abscess of the stump by Dr. Sanchez Continue 2 weeks of IV antibiotics per ID recommendations, PICC in place Creatinine stable Uncontrolled type 2 diabetes mellitus with hyperglycemia Hypocalcemia, check ionized calcium Hyperkalemia, defer to nephrology I&D culture pending VTE: heparin sq Code: Full
[2025-01-13] MEDS ORDERED: LIDOCAINE 2% MPF 5 ML VIAL ONE (15:10)
[2025-01-13] MEDS ORDERED: FENTANYL CITR 100 MCG/2 ML ONE (15:10)
[2025-01-13] MEDS ORDERED: ONDANSETRON 4 MG/2 ML VIAL ONE (15:10)
[2025-01-13] MEDS ORDERED: MIDAZOLAM HCL 2 MG/2 ML INJ ONE (15:11)
[2025-01-13] MEDS: BUPIVACAINE 0.5% PF 10 ML VIAL ONE (15:36)
--- NOTE | 2025-01-13 16:10 | P.BOP ---
Preoperative diagnosis: right leg/stump abscess Postoperative diagnosis: same Primary procedure: Incision and drainage of right leg/stump abscess 5x3cm Estimated blood loss: <10cc Specimen: culture Findings: abscess Anesthesia: General Complications: None Drain(s): Other (05/28" packing) Transferred to: Recovery Room Condition: Good
--- NOTE | 2025-01-13 16:57 | OP ---
Date of Procedure: 01/13/2025 Surgeon: Bernardino Sanchez MD Preoperative Diagnosis: Right leg stump abscess. Postoperative Diagnosis: Right leg stump abscess. Procedure: Incision and drainage of right stump abscess, 5 x 3 cm. Estimated Blood Loss: Less than 10 cc. Specimen: Abscess. Anesthesia: MAC plus local. Packing: Quarter of an inch iodoform. Indications: This is a case of a 59-year-old patient with history of amputation, long time ago, noti vanda swelling recently, found to have fluid retention with cellulitis. So I was called for incision a nd drainage of an abscess. So I explained to him the benefits, alternatives, and risks, which includ e, but not limited to, infection, bleeding, damage to adjacent structures, anesthesia complication, r ecurrence, OR, and even . He also understands this may not relieve any symptoms, he might need more than one surgical intervention. He understand he will require wound care. Description Of Procedure: The area of concern was marked by me and the patient in the holding room. The patient was brought to the operating room in supine position. Anesthesia was induced without co mplication. Local anesthesia was applied after time-out. An incision was made over the area after t he area was prepped and draped in sterile fashion, and immediately pus under pressure came out. We i rrigated the loculations, explored the loculations, checked the pus out, obtained hemostasis, and pac ked the area with iodoform quarter of an inch. The patient tolerated the procedure well. Patient was sent to recovery in stable condition . BRANDEE/SARAHY Voice ID: [id number] Report ID: [id number]
[2025-01-13] MEDS: SODIUM ZIRCONIUM CYCLOSILICATE 10 GM/PKT PO SCH (17:14)
[2025-01-13] MEDS: AMINO ACIDS/PROTEIN HYDROLYS 30 ML LIQUID.PKT PO SCH (21:00)
[2025-01-14 08:15] LABS: Absolute Lymphocytes (CBC) 1.6 K/uL (0.7-4.9); Hematocrit 26.0 % (39.6-49.0); Hemoglobin 8.6 g/dL (13.6-17.9); MCH 28.5 pg (27.0-35.0); MCHC 33.1 g/dL (32.0-36.0); MCV 86.0 fL (80-100); MPV 7.9 fL (7.6-11.3); Nucleated RBC Absolute Count 0.0 (0-0); Nucleated Red Blood Cells % 0.0 % (0-0); RBC Red Blood Cell Count 3.02 M/uL (4.33-5.43); White Blood Count 9.30 thou/uL (4.3-10.9)
[2025-01-14 08:34] LABS: ALT/SGPT 39.0 U/L (16-61); AST/SGOT 53.0 U/L (15-37); Albumin 2.3 g/dL (3.4-5.0); Albumin/Globulin Ratio 0.7 (1.1-1.8); Alkaline Phosphatase 100.0 U/L (45-117); Anion Gap 9.5 mEq/L (5.0-15.0); BUN Blood Urea Nitrogen 36.0 mg/dL (7-18); Globulin 3.5 g/dL (2.3-3.5); Glucose Level 198.0 mg/dL (74-106); Potassium 5.5 mEq/L (3.5-5.1)
[2025-01-14] MEDS: NIFEDIPINE XL 60 MG TABLET PO SCH (09:00)
--- NOTE | 2025-01-14 14:33 | PN ---
Date of Progress Note: 01/14/2025 Subjective: The patient is status post I and D, creatinine stable, potassium elevated, continued Parker bertha. Objective: Vital Signs: Temperature 97.8, pulse rate 90, blood pressure 171/79. General: Awake and alert, not in distress. Neck: Supple. No elevated JVD. Heart: Regular rate and rhythm. Normal S1, S2. Chest: Clear to auscultation bilaterally. No rales or wheezes. Abdomen: Soft and nontender. Extremities: Right BKA has a trace edema. Laboratory Data: Sodium 138, potassium 5.5, BUN 36, creatinine 1.8. Assessment And Plan: The patient with past medical history of diabetic chronic kidney disease, basel ine creatinine about 1.7, who was admitted for right stump infection. 1. Acute kidney injury and chronic kidney disease, stage 3. Baseline creatinine was 1.7. Upon admis staci, creatinine 2.9 and improved to 1.9. Off IV fluids. Renal dose medication. Avoid NSAID and co ntrast. 2. Diabetic chronic kidney disease, stage 3. Baseline creatinine 1.7 as above. 3. Persistent hyperkalemia, not on ORALIA or ARB. Continue daily Lokelma. We will start the patient on hydrochlorothiazide. 4. Hypertension. Blood pressure is elevated. We will discontinue amlodipine and start nifedipine. 5. Diabetes mellitus. Continue insulin Farxiga. 6. Right stump infection, status post I and D. Continue antibiotic and wound care. Thanks for allowing me to participate in the patient's care. Total time spent 55 minutes including documentation, reviewing labs, and placing order. ESPINOZA Voice ID: [id number] Report ID: [id number]
[2025-01-14] MEDS: HYDROMORPHONE HCL 0.5 MG/0.5 ML INJ IV PRN (14:46)
[2025-01-14] MEDS: hydroCHLOROthiazide 25 MG TAB PO SCH (14:47)
--- NOTE | 2025-01-14 16:11 | P.PN ---
Date of Service: 01/14/25 Subjective: Doing well. His stump has less pain today. Denies fevers and chills Physical Exam: GEN: Alert, oriented, NAD CV: Regular rate and rhythm, no edema ABD: soft, nontender, nondistended Integumentary: Right BKA erythema and swelling resolved, healed surgical wound. Neuro: Normal speech, normal affect Problem List: Right BKA stump infection MRSA bacteremia ERKIA on CKD3 IDDM2 with neuropathy Hypertension Hyperlipidemia Right BKA stump infection MRSA bacteremia on admission presents with worsening erythema, pain and swelling of right BKA stump associated with nausea, weakness, subjective fever Venous ultrasound noted nonspecific subq edema, no fluid collections. CXR negative. [facility] consult. Wound care per [facility] Continue IV cefazolin/Vanc (01/08-); dc flagyl Blood cx - MRSA resulted 01/09 am Wound cx - pending Follow cultures. Will likely need prolonged IV abx Repeat blood cx ID consult ERIKA on CKD3 Creatinine 2.91 on admission Renal u/s (01/09): distended bladder with debris. No hydro. Bladder volume 909mL pt urinated ~900ml right after U/S done. Denies any retention issues Bladder scan today. - normal PVR. no evidence of retention Monitor renal function, electrolytes Nephrology consulted Creatinine improving daily. IDDM2 with neuropathy confirm home insulin regimen accu-cheks, SSI A1c 8.7 Hypertension Hyperlipidemia confirm home meds, restart as appropriate 01/10 Aerobic blood culture grew MRSA, anaerobic blood culture growing E. coli. Antibiotic sensitivities for both organisms are pending. Continue IV vancomycin, and IV Rocephin to cover E. coli. Blood cultures repeated today. Follow result Infectious diseases following. Renal function mildly improved. Renal ultrasound shows no evidence of hydronephrosis. Nephrology is following and managing ERIKA. 01/11 MRI of the right leg reviewed and noted an abscess collection. Case discussed with infectious disease, continue IV vancomycin and IV Rocephin. General surgery Dr. Sanchez consulted to evaluate. Will also consult IR for US guided drainage. No change in creatinine since yesterday Nephrology is following and assisting with management of ERIKA. Antibiotic duration pending abscess drainage. 01/12 Continue IV vancomycin and Rocephin CT-guided drainage of right amputation stump abscesses pending. Radiology is planning for drainage tomorrow. Infectious disease input appreciated. 2 weeks IV antibiotics recommended if patient undergoes drainage of the abscess. Repeat blood 01/10 is negative. PICC line for outpatient IV antibiotics requested. Nephrology is following for ERIKA. Serum creatinine improved close to baseline. 01/[address]-guided I&D of right amputation abscess of the stump by Dr. Sanchez Continue 2 weeks of IV antibiotics per ID recommendations, PICC in place Creatinine stable Uncontrolled type 2 diabetes mellitus with hyperglycemia Hypocalcemia, check ionized calcium Hyperkalemia, defer to nephrology I&D culture pending 823 Resting comfortably in bed s/p I&D of right amputation abscess, cultures pending Kidney function continues to improve 2 weeks of IV antibiotics per ID recommendations with PICC line in place, wound care Daily Niraj per nephrology Now on hydrochlorothiazide VTE: heparin sq Code: Full
--- NOTE | 2025-01-15 07:22 | P.PN ---
Date of Service: 01/15/25 Subjective: Doing well. No acute events overnight denies fevers and chills Physical Exam: GEN: Alert, oriented, NAD CV: Regular rate and rhythm, no edema ABD: soft, nontender, nondistended Integumentary: Right BKA erythema and swelling resolved, healed surgical wound. Neuro: Normal speech, normal affect Problem List: Right BKA stump infection MRSA bacteremia ERIKA on CKD3 IDDM2 with neuropathy Hypertension Hyperlipidemia Right BKA stump infection MRSA bacteremia on admission presents with worsening erythema, pain and swelling of right BKA stump associated with nausea, weakness, subjective fever Venous ultrasound noted nonspecific subq edema, no fluid collections. CXR negative. [facility] consult. Wound care per [facility] Continue IV cefazolin/Vanc (01/08-); dc flagyl Blood cx - MRSA resulted 01/09 am Wound cx - pending Follow cultures. Will likely need prolonged IV abx Repeat blood cx ID consult ERIKA on CKD3 Creatinine 2.91 on admission Renal u/s (01/09): distended bladder with debris. No hydro. Bladder volume 909mL pt urinated ~900ml right after U/S done. Denies any retention issues Bladder scan today. - normal PVR. no evidence of retention Monitor renal function, electrolytes Nephrology consulted Creatinine improving daily. IDDM2 with neuropathy confirm home insulin regimen accu-cheks, SSI A1c 8.7 Hypertension Hyperlipidemia confirm home meds, restart as appropriate 01/10 Aerobic blood culture grew MRSA, anaerobic blood culture growing E. coli. Antibiotic sensitivities for both organisms are pending. Continue IV vancomycin, and IV Rocephin to cover E. coli. Blood cultures repeated today. Follow result Infectious diseases following. Renal function mildly improved. Renal ultrasound shows no evidence of hydronephrosis. Nephrology is following and managing ERIKA. 01/11 MRI of the right leg reviewed and noted an abscess collection. Case discussed with infectious disease, continue IV vancomycin and IV Rocephin. General surgery Dr. Sanchez consulted to evaluate. Will also consult IR for US guided drainage. No change in creatinine since yesterday Nephrology is following and assisting with management of ERIKA. Antibiotic duration pending abscess drainage. 01/12 Continue IV vancomycin and Rocephin CT-guided drainage of right amputation stump abscesses pending. Radiology is planning for drainage tomorrow. Infectious disease input appreciated. 2 weeks IV antibiotics recommended if patient undergoes drainage of the abscess. Repeat blood 01/10 is negative. PICC line for outpatient IV antibiotics requested. Nephrology is following for ERIKA. Serum creatinine improved close to baseline. 01/[address]-guided I&D of right amputation abscess of the stump by Dr. Sanchez Continue 2 weeks of IV antibiotics per ID recommendations, PICC in place Creatinine stable Uncontrolled type 2 diabetes mellitus with hyperglycemia Hypocalcemia, check ionized calcium Hyperkalemia, defer to nephrology I&D culture pending 01/14 Resting comfortably in bed s/p I&D of right amputation abscess, cultures pending Kidney function continues to improve 2 weeks of IV antibiotics per ID recommendations with PICC line in place, wound care Daily Juanaky per nephrology Now on hydrochlorothiazide 01/15 Resting comfortably No acute complaint Hyperkalemia resolved Diabetes remains uncontrolled with hyperglycemia VTE: heparin sq Code: Full
[2025-01-15 08:05] LABS: Absolute Lymphocytes (CBC) 2.1 K/uL (0.7-4.9); Hematocrit 27.9 % (39.6-49.0); Hemoglobin 9.1 g/dL (13.6-17.9); MCH 28.3 pg (27.0-35.0); MCHC 32.6 g/dL (32.0-36.0); MCV 86.7 fL (80-100); MPV 7.3 fL (7.6-11.3); Nucleated RBC Absolute Count 0.0 (0-0); Nucleated Red Blood Cells % 0.0 % (0-0); RBC Red Blood Cell Count 3.22 M/uL (4.33-5.43); White Blood Count 8.60 thou/uL (4.3-10.9)
[2025-01-15 08:36] LABS: ALT/SGPT 60.0 U/L (16-61); AST/SGOT 69.0 U/L (15-37); Albumin 2.4 g/dL (3.4-5.0); Albumin/Globulin Ratio 0.6 (1.1-1.8); Alkaline Phosphatase 93.0 U/L (45-117); Anion Gap 10.0 mEq/L (5.0-15.0); BUN Blood Urea Nitrogen 37.0 mg/dL (7-18); Globulin 4.0 g/dL (2.3-3.5); Glucose Level 180.0 mg/dL (74-106); Potassium 5.0 mEq/L (3.5-5.1)
[2025-01-15] MEDS: NIFEDIPINE XL 60 MG TABLET PO SCH (08:49)
--- NOTE | 2025-01-16 11:34 | P.PN ---
Date of Service: 01/16/25 subjective: pt tolerating abx with no problem. WBC WNL, VS stable, objective Temp Pulse Resp BP Pulse Ox 97.9 F 89 16 125/68 98 01/16/25 08:00 01/16/25 08:00 01/16/25 08:00 01/16/25 08:00 01/16/25 08:00 - Physical Exam General: Oriented x3, Cooperative HEENT: Atraumatic, Normocephalic, PERRLA, Neck: Supple, 2+ Respiratory: Clear to auscultation bilaterally Cardiovascular: RRR Gastrointestinal: Normal bowel sounds, BS present, NT, ND Musculoskeletal: right BKA with dressing Neurological: respond appropriately to questions Microbiology 01/07/25 21:50 Blood - Blood Aerobic Blood Culture - Preliminary No growth in 24 hours. 01/07/25 21:50 Blood - Blood Anaerobic Blood Culture - Preliminary STAPH AUREUS ssp AUREUS 01/07/25 21:50 Blood - Blood Gram Stain - Final 01/07/25 21:34 Blood - Blood Aerobic Blood Culture - Final Meth Resistant Staph Aureus 01/07/25 21:34 Blood - Blood Blood Culture Gram Stain - Final 01/07/25 21:34 Blood - Blood Anaerobic Blood Culture - Final Escherichia Coli 01/07/25 21:34 Blood - Blood Gram Stain - Final labs: wbc 8.6, hgb 9.1, plt count 302,bun 37, cr 1.85, albumin 2.4 assessment and planning MRSA and ecoli bacteremia right BKA stump abscess s/p I&D 01/13 ERIKA on CKD3 IDDM2 with neuropathy moderate protein calorie malnourishment leukocytosis(improved) blood culture show MRSA and e coli grew recently. repeat blood culture 01/10/25 no growth continue IV doxycyline and merrem x 2 weeks. tentative stop date jan 25. Dr rodriguez did I&D 5x3 cm abscess on 01/13 TTE negative for endocarditis wound culture grew staph aureus will continue to monitor for infection with wbc and fever trend case discussed and in agreement with Dr Sylvester
--- NOTE | 2025-01-16 14:12 | P.DS ---
Admission Date: 01/07/25 Discharge Date: 01/16/25 Disposition: ROUTINE DISCHARGE Discharge Condition: GOOD Reason for Admission: Right thumb cellulitis/wound, hyperglycemia,ERIKA Vital Signs/Physical Exam: Temp Pulse Resp BP Pulse Ox 98.4 F 87 16 137/73 99 01/16/25 12:00 01/16/25 12:00 01/16/25 12:00 01/16/25 12:00 01/16/25 12:00 Laboratory Data at Discharge: WBC 8.60 thou/uL (4.3-10.9) 01/15/25 07:57 Hgb 9.1 g/dL (13.6-17.9) L 01/15/25 07:57 Hct 27.9 % (39.6-49.0) L 01/15/25 07:57 Plt Count 302 thou/uL (152-406) 01/15/25 07:57 PT 11.2 SECONDS (10-13.0) 01/12/25 12:45 INR 0.99 01/12/25 12:45 APTT 28.9 SECONDS (27.2-37.4) 01/12/25 12:45 Sodium 139 mEq/L (136-145) 01/15/25 07:57 Potassium 5.0 mEq/L (3.5-5.1) 01/15/25 07:57 BUN 37 mg/dL (7-18) H 01/15/25 07:57 Creatinine 1.85 mg/dL (0.70-1.30) H 01/15/25 07:57 Glucose 180 mg/dL (74-106) H 01/15/25 07:57 Phosphorus 3.8 mg/dL (2.5-4.9) 01/11/25 05:21 Magnesium 2.3 mg/dL (1.6-2.4) 01/10/25 06:11 Total Bilirubin 0.3 mg/dL (0.2-1.0) 01/15/25 07:57 AST 69 U/L (15-37) H 01/15/25 07:57 ALT 60 U/L (16-61) 01/15/25 07:57 Alkaline Phosphatase 93 U/L (45-117) 01/15/25 07:57 Home Medications: Amitriptyline [Elavil*] 25 mg PO BEDTIME 10/25/22 Cholecalciferol (Vitamin D3) [Vitamin D3] 25 mcg PO DAILY 01/08/25 Empagliflozin [Jardiance] 10 mg PO DAILY 01/08/25 Rosuvastatin [Crestor*] 5 mg PO BID 01/08/25 hydroCHLOROthiazide [Hydrochlorothiazide] 1 mg PO DAILY 01/08/25 Physician Discharge Instructions: F/u [facility] Iodoform 05/28" to stump wound daily Followup: Bernardino Sanchez MD [ACTIVE - CAN ADMIT] - Arturo Rawls DO [Primary Care Provider] -
--- NOTE | 2025-01-16 15:58 | P.PN ---
Date of Service: 01/17/20 Subjective: Doing well. No acute events overnight denies fevers and chills Physical Exam: GEN: Alert, oriented, NAD CV: Regular rate and rhythm, no edema ABD: soft, nontender, nondistended Integumentary: Right BKA erythema and swelling resolved, healed surgical wound. Neuro: Normal speech, normal affect Problem List: Right BKA stump infection MRSA bacteremia ERIKA on CKD3 IDDM2 with neuropathy Hypertension Hyperlipidemia Right BKA stump infection MRSA bacteremia on admission presents with worsening erythema, pain and swelling of right BKA stump associated with nausea, weakness, subjective fever Venous ultrasound noted nonspecific subq edema, no fluid collections. CXR negative. [facility] consult. Wound care per [facility] Continue IV cefazolin/Vanc (01/08-); dc flagyl Blood cx - MRSA resulted 01/09 am Wound cx - pending Follow cultures. Will likely need prolonged IV abx Repeat blood cx ID consult ERIKA on CKD3 Creatinine 2.91 on admission Renal u/s (01/09): distended bladder with debris. No hydro. Bladder volume 909mL pt urinated ~900ml right after U/S done. Denies any retention issues Bladder scan today. - normal PVR. no evidence of retention Monitor renal function, electrolytes Nephrology consulted Creatinine improving daily. IDDM2 with neuropathy confirm home insulin regimen accu-cheks, SSI A1c 8.7 Hypertension Hyperlipidemia confirm home meds, restart as appropriate 01/10 Aerobic blood culture grew MRSA, anaerobic blood culture growing E. coli. Antibiotic sensitivities for both organisms are pending. Continue IV vancomycin, and IV Rocephin to cover E. coli. Blood cultures repeated today. Follow result Infectious diseases following. Renal function mildly improved. Renal ultrasound shows no evidence of hydronephrosis. Nephrology is following and managing ERIKA. 01/11 MRI of the right leg reviewed and noted an abscess collection. Case discussed with infectious disease, continue IV vancomycin and IV Rocephin. General surgery Dr. Sanchez consulted to evaluate. Will also consult IR for US guided drainage. No change in creatinine since yesterday Nephrology is following and assisting with management of ERIKA. Antibiotic duration pending abscess drainage. 01/12 Continue IV vancomycin and Rocephin CT-guided drainage of right amputation stump abscesses pending. Radiology is planning for drainage tomorrow. Infectious disease input appreciated. 2 weeks IV antibiotics recommended if patient undergoes drainage of the abscess. Repeat blood 01/10 is negative. PICC line for outpatient IV antibiotics requested. Nephrology is following for ERIKA. Serum creatinine improved close to baseline. 01/[address]-guided I&D of right amputation abscess of the stump by Dr. Sanchez Continue 2 weeks of IV antibiotics per ID recommendations, PICC in place Creatinine stable Uncontrolled type 2 diabetes mellitus with hyperglycemia Hypocalcemia, check ionized calcium Hyperkalemia, defer to nephrology I&D culture pending 01/14 Resting comfortably in bed s/p I&D of right amputation abscess, cultures pending Kidney function continues to improve 2 weeks of IV antibiotics per ID recommendations with PICC line in place, wound care Daily Lokelma per nephrology Now on hydrochlorothiazide 01/15 Resting comfortably No acute complaint Hyperkalemia resolved Diabetes remains uncontrolled with hyperglycemia 01/16 Doing well on IV antibiotic Anxious to go home Continue nifedipine, hydrochlorothiazide, Jardiance for blood pressure Continue Lokelma for hyperkalemia Disposition: Follow-up with Dr. Rawls, awaiting home health with IV antibiotics set up, follow-up with Dr. Sylvester VTE: heparin sq Code: Full
--- NOTE | 2025-01-16 18:09 | PN ---
Date of Progress Note: 01/14/2025 Chief Complaint: Acute kidney injury on chronic kidney disease, stage 3. Subjective: The patient denies complaints today. Physical Examination: Lungs: Clear to auscultation bilaterally. Heart: S1, S2. Abdomen: Soft. Extremities: Right BKA. Trace peripheral edema. Impression And Plan: 1. Patient has history of diabetic kidney disease, baseline creatinine 1.7. He is admitted for right stump infection. Acute kidney injury on chronic kidney disease. Baseline creatinine level 1.7. Up on admission, creatinine level was 2.9, and it is gradually improving. IV fluids were started for ac chefornak kidney injury. Currently, patient is tolerating p.o. intake. Continue to monitor renal function . Continue p.o. hydration. 2. Diabetic kidney disease, stage 3. Avoid nephrotoxic medication. Continue insulin. 3. Persistent hyperkalemia. The patient will continue Lokelma. 4. Hypertension. Blood pressure is elevated and medications were adjusted. 5. Diabetes mellitus. Continue current treatment. 6. Right stump infection, status post I and D. Continue antibiotics and wound care. The patient was evaluated for urinary retention and bladder ultrasound showed urinary retention, alth ough patient was able to void and postvoid volume was minimal. Continue Flomax. The patient has follow up with Urology. YARELY/SARAHY Voice ID: [id number] Report ID: [id number]
[2025-01-17 00:30] VITALS: O2SAT 96
--- NOTE | 2025-01-17 10:20 | P.PN ---
Date of Service: 01/17/25 Subjective: The patient was admitted to the hospital with acute kidney injury, hyponatremia on chronic kidney disease after hydration. Kidney function started improving. The patient had stump infection. Physical Examination: Temp Pulse Resp BP Pulse Ox 97.6 F 90 18 128/65 99 01/17/25 04:00 01/17/25 04:00 01/17/25 04:00 01/17/25 04:00 01/17/25 04:00 Chest: Clear to auscultation. Heart: S1, S2 regular. Abdomen: Soft, nontender. Extremities: Right below-knee amputation. Erythema on the stump. Left, no edema. Neurologic: Alert. No focality. Active Medications Acetaminophen (Acetaminophen 325 Mg Tablet) 650 mg PO Q4HP PRN PRN Reason: Pain scale 2-4 (Mild) Last Admin: 01/16/25 01:01 Dose: 650 mg Amino Acids (Amino Acids/Protein Hydrolys 30 Ml Liquid.Pkt) 30 ml PO BID [facility] Last Admin: 01/17/25 09:00 Dose: 30 ml Amitriptyline HCl (Amitriptyline 25 Mg Tab) 25 mg PO BEDTIME [facility] Last Admin: 01/16/25 21:59 Dose: 25 mg Cholecalciferol (Vitamin D 1000 Unit Tab) 1,000 unit PO DAILY [facility] Last Admin: 01/17/25 09:00 Dose: 1,000 unit Heparin Sodium (Porcine) (Heparin 5000 Unit/Ml 1 Ml Vial) 5,000 unit SQ Q8HR [facility] Last Admin: 01/17/25 09:06 Dose: 5,000 unit Home Med (Empagliflozin [Jardiance]) 10 mg PO DAILY [facility] Last Admin: 01/17/25 09:00 Dose: Not Given Hydralazine HCl (Hydralazine Hcl 20 Mg/Ml Vial) 10 mg IV Q6HP PRN PRN Reason: FOR SBP>160 OR DBP>100 [facility] Last Admin: 01/14/25 14:47 Dose: 10 mg Hydrochlorothiazide (Hydrochlorothiazide 25 Mg Tab) 12.5 mg PO DAILY [facility] Last Admin: 01/17/25 09:07 Dose: 12.5 mg Hydromorphone HCl (Hydromorphone Hcl 0.5 Mg/0.5 Ml Inj) 0.5 mg IV DAILY PRN PRN Reason: Pain scale 8-10 (Severe) Last Admin: 01/16/25 22:09 Dose: 0.5 mg Doxycycline Hyclate 100 mg/ (Sodium Chloride) 100 mls @ 100 mls/hr IVPB Q12HR JOSSELIN; Protocol Stop: 01/22/25 23:59 Last Admin: 01/17/25 09:00 Dose: 100 mls Meropenem 1,000 mg/ Sodium (Chloride) 100 mls @ 200 mls/hr IV Q12HR JOSSELIN Stop: 01/22/25 23:59 Last Admin: 01/17/25 09:07 Dose: 100 mls Insulin Glargine (Insulin Glargine 100 Unit/Ml) 20 unit SQ DAILY WITH BREAKFAST JOSSELIN Last Admin: 01/17/25 08:00 Dose: 20 unit Insulin Human Regular (Insulin Regular (Human) 100 Unit/Ml) 0 unit SQ ACHS JOSSELIN; Protocol Last Admin: 01/17/25 07:30 Dose: Not Given Nifedipine (Nifedipine Xl 60 Mg Tablet) 60 mg PO DAILY [facility] Last Admin: 01/17/25 09:05 Dose: 60 mg Rosuvastatin Calcium (Rosuvastatin 5 Mg Tab) 5 mg PO BID [facility]OS[facility] Last Admin: 01/17/25 09:06 Dose: 5 mg Laboratory Last Values WBC 14.70 thou/uL (4.3-10.9) H 01/07/25 20:01 RBC 3.65 M/uL (4.33-5.43) L 01/07/25 20:01 Hgb 10.5 g/dL (13.6-17.9) L 01/07/25 20:01 Hct 31.9 % (39.6-49.0) L 01/07/25 20: MCV 87.2 fL (80-100) 01/07/25 20:01 MCH 28.7 pg (27.0-35.0) 01/07/25 20:01 MCHC 32.9 g/dL (32.0-36.0) 01/07/25 20:01 RDW 13.3 % (12.1-15.2) 01/07/25 20:01 Plt Count 209 thou/uL (152-406) 01/07/25 20:01 MPV 9.2 fL (7.6-11.3) 01/07/25 20:01 Neutrophils % 86.1 % (41.7-73.7) H 01/07/25 20:01 Lymphocytes % 4.7 % (15.3-44.8) L 01/07/25 20:01 Monocytes % 6.1 % (3.3-12.3) 01/07/25 20:01 Eosinophils % 2.9 % (0-4.4) 01/07/25 20:01 Basophils % 0.2 % (0-1.3) 01/07/25 20:01 Absolute Neutrophils 12.6 K/uL (1.8-8.0) H 01/07/25 20:01 Absolute Lymphocytes 0.7 K/uL (0.7-4.9) 01/07/25 20:01 Absolute Monocytes 0.9 K/uL (0.1-1.3) 01/07/25 20:01 Absolute Eosinophils 0.4 K/uL (0-0.5) 01/07/25 20:01 Absolute Basophils 0.0 K/uL (0-0.5) 01/07/25 20:01 Platelet Estimate Adeq 01/07/25 20:01 Morphology Comment Not seen (NOT SEEN) 01/07/25 20:01 PT 12.3 SECONDS (10-13.0) 01/07/25 21:34 INR 1.09 01/07/25 21:34 APTT 25.8 SECONDS (27.2-37.4) L 01/07/25 21:34 Sodium 129 mEq/L (136-145) L 01/07/25 20:01 Potassium 3.9 mEq/L (3.5-5.1) 01/07/25 20:01 Chloride 95 mEq/L (98-107) L 01/07/25 20:01 Carbon Dioxide 22 mEq/L (21-32) 01/07/25 20:01 Anion Gap 15.9 mEq/L (5.0-15.0) H 01/07/25 20:01 BUN 41 mg/dL (7-18) H 01/07/25 20:01 Creatinine 2.91 mg/dL (0.70-1.30) H 01/07/25 20:01 Est GFR (CKD-EPI) 24 ml/min (=/>90) L 01/07/25 20:01 Glucose 607 mg/dL (74-106) H* 01/07/25 20:01 POC Glucose 484 mg/dL (65-120) H* 01/07/25 21:51 Lactic Acid 1.1 mmol/L (0.4-2.0) 01/07/25 21:34 Calcium 9.4 mg/dL (8.5-10.1) 01/07/25 20:01 Magnesium 2.9 mg/dL (1.6-2.4) H 01/07/25 20:01 Total Bilirubin 0.8 mg/dL (0.2-1.0) 01/07/25 20:01 Direct Bilirubin 0.2 mg/dL (0-0.2) 01/07/25 20:01 Indirect Bilirubin 0.6 mg/dL (0.2-0.8) 01/07/25 20:01 AST 11 U/L (15-37) L 01/07/25 20:01 ALT 30 U/L (16-61) 01/07/25 20:01 Alkaline Phosphatase 176 U/L (45-117) H 01/07/25 20:01 Troponin I High Sens 6.1 pg/mL (<58.9) 01/07/25 20:01 NT-Pro-B Natriuret Pep 1408 pg/mL (<125) H 01/07/25 21:34 Serum Total Protein 7.6 g/dL (6.4-8.2) 01/07/25 20:01 Albumin 3.1 g/dL (3.4-5.0) L 01/07/25 20:01 Globulin 4.5 g/dL (2.3-3.5) H 01/07/25 20:01 Albumin/Globulin Ratio 0.7 (1.1-1.8) L 01/07/25 20:01 Smear Scan Ok (OK) 01/07/25 20:01 Assessment And Plan: 1. Acute kidney injury on chronic kidney disease. The patient continued to improve, mostly secondary to toxic ATN secondary to stump infection superimposed with glucose diuresis secondary to poor controlled diabetes. The patient's kidney function close to his baseline, baseline around 1.8 with GFR of 40. I am going to go ahead and continue current antibiotic. We will follow up with Primary. Keep holding IV fluid. Patient clear from the renal standpoint for DC planning 2. Hypertension, controlled, optimal. Continue current treatment. 3. Diabetes, as by Primary. 4. 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 5. Hyponatremia, depletional, resolved. 6. Anemia of chronic kidney disease with iron deficiency anemia with the presence of stump infection. I would be reluctant to give any IV iron for the time being. 7. Stump infection with bacteremia. Continue current antibiotic. We will follow up with Primary. Time spent examining the patient [id number] reviewing data lab and radiology p lacing order discussing the case with the patient discussing the case with the meat service team member including hospitalist and nursing staff more than 55-minute
[2025-01-17 10:22] VITALS: BP 138/77; TEMP 98.3
--- NOTE | 2025-01-17 15:06 | P.DS ---
Admission Date: 01/07/25 Discharge Date: 01/17/25 Disposition: DC HOME/HOME HEALTH CARE Discharge Condition: GOOD Reason for Admission: Right thumb cellulitis/wound, hyperglycemia,ERIKA Brief History of Present Illness: Patient is a 59-year-old male with past medical history of type 2 diabetes mellitus, diabetic neuropathy, anemia, CKD followed by nephrology Dr. Newton, essential hypertension, right leg wound and post right BKA. Patient reports to the ER complaining of generalized body weakness, dizziness, chills, subjective fever with associated nausea but no vomiting for past 3 days. Patient also complaint of pain on his right stump, with erythema, and swelling with no drainage. According to patient present at bedside she states patient has not been eating adequate amount of nutrition, states he goes almost all day without eating, patient states he has loss of appetite, not also taking adequate amount of p.o. fluid. Patient dizziness and weakness may be related to poor nutrition, and p.o. fluid intake. Not sure if patient has been taking his medications adequate, patient initial serum glucose was 607, with no major anion gap elevation, WBC 14.70 with a left shift, BNP 1408. Patient has cellulitis to his right stump with an open wound no malodorous or drainage noted at this time. Hospital Course: Physical Exam: GEN: Alert, oriented, NAD CV: Regular rate and rhythm, no edema ABD: soft, nontender, nondistended Integumentary: Right BKA erythema and swelling resolved, healed surgical wound. Neuro: Normal speech, normal affect Problem List: Right BKA stump infection MRSA bacteremia ERIKA on CKD3 IDDM2 with neuropathy Hypertension Hyperlipidemia Right BKA stump infection MRSA bacteremia on admission presents with worsening erythema, pain and swelling of right BKA stump associated with nausea, weakness, subjective fever Venous ultrasound noted nonspecific subq edema, no fluid collections. CXR negative. [facility] consult. Wound care per [facility] Continue IV cefazolin/Vanc (01/08-); dc flagyl Blood cx - MRSA resulted 01/09 am Wound cx - pending Follow cultures. Will likely need prolonged IV abx Repeat blood cx ID consult ERIKA on CKD3 Creatinine 2.91 on admission Renal u/s (01/09): distended bladder with debris. No hydro. Bladder volume 909mL pt urinated ~900ml right after U/S done. Denies any retention issues Bladder scan today. - normal PVR. no evidence of retention Monitor renal function, electrolytes Nephrology consulted Creatinine improving daily. IDDM2 with neuropathy confirm home insulin regimen accu-cheks, SSI A1c 8.7 Hypertension Hyperlipidemia confirm home meds, restart as appropriate 01/10 Aerobic blood culture grew MRSA, anaerobic blood culture growing E. coli. Antibiotic sensitivities for both organisms are pending. Continue IV vancomycin, and IV Rocephin to cover E. coli. Blood cultures repeated today. Follow result Infectious diseases following. Renal function mildly improved. Renal ultrasound shows no evidence of hydronephrosis. Nephrology is following and managing ERIKA. 01/11 MRI of the right leg reviewed and noted an abscess collection. Case discussed with infectious disease, continue IV vancomycin and IV Rocephin. General surgery Dr. Sanchez consulted to evaluate. Will also consult IR for US guided drainage. No change in creatinine since yesterday Nephrology is following and assisting with management of ERIKA. Antibiotic duration pending abscess drainage. 01/12 Continue IV vancomycin and Rocephin CT-guided drainage of right amputation stump abscesses pending. Radiology is planning for drainage tomorrow. Infectious disease input appreciated. 2 weeks IV antibiotics recommended if patient undergoes drainage of the abscess. Repeat blood 01/10 is negative. PICC line for outpatient IV antibiotics requested. Nephrology is following for ERIKA. Serum creatinine improved close to baseline. 01/[address]-guided I&D of right amputation abscess of the stump by Dr. Sanchez Continue 2 weeks of IV antibiotics per ID recommendations, PICC in place Creatinine stable Uncontrolled type 2 diabetes mellitus with hyperglycemia Hypocalcemia, check ionized calcium Hyperkalemia, defer to nephrology I&D culture pending 01/14 Resting comfortably in bed s/p I&D of right amputation abscess, cultures pending Kidney function continues to improve 2 weeks of IV antibiotics per ID recommendations with PICC line in place, wound care Daily Lokelma per nephrology Now on hydrochlorothiazide 01/15 Resting comfortably No acute complaint Hyperkalemia resolved Diabetes remains uncontrolled with hyperglycemia 01/16 Doing well on IV antibiotic Anxious to go home Continue nifedipine, hydrochlorothiazide, Jardiance for blood pressure Continue Lokelma for hyperkalemia Disposition: Follow-up with Dr. Rawls, awaiting home health with IV antibiotics set up, follow-up with Dr. Sylvester VTE: heparin sq Code: Full Vital Signs/Physical Exam: Temp Pulse Resp BP Pulse Ox 98.3 F 90 16 138/77 98 01/17/25 08:00 01/17/25 08:00 01/17/25 08:00 01/17/25 08:00 01/17/25 08:00 Laboratory Data at Discharge: WBC 8.60 thou/uL (4.3-10.9) 01/15/25 07:57 Hgb 9.1 g/dL (13.6-17.9) L 01/15/25 07:57 Hct 27.9 % (39.6-49.0) L 01/15/25 07:57 Plt Count 302 thou/uL (152-406) 01/15/25 07:57 PT 11.2 SECONDS (10-13.0) 01/12/25 12:45 INR 0.99 01/12/25 12:45 APTT 28.9 SECONDS (27.2-37.4) 01/12/25 12:45 Sodium 139 mEq/L (136-145) 01/15/25 07:57 Potassium 5.0 mEq/L (3.5-5.1) 01/15/25 07:57 BUN 37 mg/dL (7-18) H 01/15/25 07:57 Creatinine 1.85 mg/dL (0.70-1.30) H 01/15/25 07:57 Glucose 180 mg/dL (74-106) H 01/15/25 07:57 Phosphorus 3.8 mg/dL (2.5-4.9) 01/11/25 05:21 Magnesium 2.3 mg/dL (1.6-2.4) 01/10/25 06:11 Total Bilirubin 0.3 mg/dL (0.2-1.0) 01/15/25 07:57 AST 69 U/L (15-37) H 01/15/25 07:57 ALT 60 U/L (16-61) 01/15/25 07:57 Alkaline Phosphatase 93 U/L (45-117) 01/15/25 07:57 Home Medications: Amitriptyline [Elavil*] 25 mg PO BEDTIME 10/25/22 Cholecalciferol (Vitamin D3) [Vitamin D3] 25 mcg PO DAILY 01/08/25 Empagliflozin [Jardiance] 10 mg PO DAILY 01/08/25 Rosuvastatin [Crestor*] 5 mg PO BID 01/08/25 hydroCHLOROthiazide [Hydrochlorothiazide] 1 mg PO DAILY 01/08/25 Physician Discharge Instructions: F/u [facility] Dr [facility] Iodoform 05/28" to stump wound daily Followup: Bernardino Sanchez MD [ACTIVE - CAN ADMIT] - ([facility] up [facility] [phone]) Arturo Rawls DO [Primary Care Provider] - 1-2 Weeks
--- NOTE | 2025-01-17 21:50 | PN ---
Subjective: The patient is being discharged today. Denies any headache, nausea, vomiting, chest jj n, abdominal pain, constipation, or diarrhea. Objective: Vital Signs: Reviewed. Lungs: Basal crackles. Heart: S1, S2. Regular. Abdomen: Soft, nontender. Bowel sounds present. Extremities: Right stump wound noted. Laboratory Data: Reviewed. Assessment And Plan: Cellulitis of right lower extremity, status post below-knee amputation stump. Wound is healing well. Continue wound care and antibiotic as planned. Monitor signs of infection wi th WBC and fever trends. No other recommendation at this time. NF/MODL Voice ID: [id number] Report ID: [id number]
== END 2025-01-17 12:58 | disposition home health service (06) | DRG 564 ==
LOC: ER 19:22 → ERHOLD 23:12 → 2ND 01-08 00:46
PROVIDERS: ADMIT Internal Medicine; ATTEND Family Medicine
PROC: 0T9B70Z Drainage of Bladder with Drainage Device, Via Natural or Artificial Opening (ICD-10-PCS; 2025-01-09)
PROC: 02HV33Z Insertion of Infusion Device into Superior Vena Cava, Percutaneous Approach (ICD-10-PCS; 2025-01-12)
PROC: 0J9N0ZZ Drainage of Right Lower Leg Subcutaneous Tissue and Fascia, Open Approach (ICD-10-PCS; principal; 2025-01-13 16:30)
DX: T87.43 Infection of amputation stump, right lower extremity (principal); A41.9 Sepsis, unspecified organism; N17.0 Acute kidney failure with tubular necrosis; I13.0 Hypertensive heart and chronic kidney disease with heart failure and stage 1 through stage 4 chronic kidney disease, or unspecified chronic kidney disease; L03.115 Cellulitis of right lower limb; E87.1 Hypo-osmolality and hyponatremia; E44.0 Moderate protein-calorie malnutrition; L02.415 Cutaneous abscess of right lower limb; I50.9 Heart failure, unspecified; N18.32 Chronic kidney disease, stage 3b; E11.22 Type 2 diabetes mellitus with diabetic chronic kidney disease; E11.40 Type 2 diabetes mellitus with diabetic neuropathy, unspecified; E11.51 Type 2 diabetes mellitus with diabetic peripheral angiopathy without gangrene; E11.65 Type 2 diabetes mellitus with hyperglycemia; D63.1 Anemia in chronic kidney disease; D50.9 Iron deficiency anemia, unspecified; E87.5 Hyperkalemia; E83.51 Hypocalcemia; E78.00 Pure hypercholesterolemia, unspecified; B96.20 Unspecified Escherichia coli [E. coli] as the cause of diseases classified elsewhere; B95.62 Methicillin resistant Staphylococcus aureus infection as the cause of diseases classified elsewhere; R33.9 Retention of urine, unspecified; Z79.4 Long term (current) use of insulin; Z68.26 Body mass index [BMI] 26.0-26.9, adult; Z79.899 Other long term (current) drug therapy; Z89.611 Acquired absence of right leg above knee
CPT/HCPCS: 36415; 71045; 73721; 76770; 76882; 80048; 80053; 80076; 80202; 81001; 82043; 82550; 82570; 82947; 83036; 83520; 83605; 83735; 83880; 84100; 84132; 84156; 84165; 84484; 85025; 85610; 85730; 86335; 87040; 87070; 87075; 87077; 87186; 87205; 88304; 93005; 93306; 96365; 96366; 96372; 99285; J0360; J0690; J0696; J1171; J1644; J1815; J2003; J2185; J2250; J2405; J2704; J3010; J3370; J7030; J7050